=== PATIENT | female | born 1990 | race Caucasian/White ===

== ENCOUNTER 2023-03-23 19:24 | Emergency (ER) | payer OTHER, SELFPAY ==
[2023-03-23 19:28] VITALS: BP 132/99; PULSE 100; RESP 16; TEMP 36.6; O2SAT 97; BMI 33.1
--- NOTE | 2023-03-23 20:03 | ED.NAVMDI1 ---
HPI - Nausea/Vomiting/Diarrhea General Chief complaint: Nausea/Vomiting/Diarrhea Stated complaint: NAUSEA AND VOMITING Time Seen by Provider: 03/23/23 19:36 Source: patient Mode of arrival: walk-in Limitations: no limitations History of Present Illness HPI Narrative: cc - vomiting Patient said that 2 weeks ago she became nauseous and started vomiting. Has not stopped. Unable to keep any solid or semi-solid foods down. Some liquids stay down, others don't - inconsistent she told me. She has some epigastric abdominal pain. Has never had anything like this before. Has not sought any care for this with her PCP or elsewhere. PMHx includes med for bipolar disorder and med for fequent kidney stones - does not know name. PSHx included cholecystectomy and stents for kidney stones. No fever or chills. NO diarrhea. Related Data Home Medications Medication Instructions Recorded Confirmed Esidrix 5 mg PO DAILY 03/23/23 03/23/23 olanzapine 10 mg-samidorphan 10 mg 1 tab PO DAILY 03/23/23 03/23/23 tablet (Lybalvi) Allergies Allergy/AdvReac Type Severity Reaction Status Date / Time No Known Drug Allergies Allergy Verified 03/23/23 19:35 PFSH PFSH Social History Smoking status: Never smoker Exam Narrative Exam Narrative: Nurses notes and vital signs reviewed and patient is not hypoxic. afebrile General: Well-appearing and in no apparent distress. Skin: Warm, dry, no pallor noted. No rash. Head: Normocephalic, atraumatic. Eye: Pupils are equal, round and EOMI. No scleral icterus. Ears, Nose, Mouth, and Throat: Oral mucosa is dry Cardiovascular: Regular Rate and Rhythm without murmur, gallop or rub. Respiratory: No accessory muscle use or respiratory distress. Lungs are clear to auscultation, no wheezing, rales or rhonchi Back: No CVA tenderness Musculoskeletal: normal ROM, no calf or popliteal tenderness, no lower extremity edema/swelling GI: Abdomen is soft, non-distended. Normal bowel sounds. No masses appreciated. Epigastric tenderness to palpation. No rebound, guarding, or rigidity noted. Neurological: A&O x4. No cranial nerve dysfunction observed. No truncal ataxia. Moves all extremities. Sensation intact. Psychiatric: Cooperative and interactive. Normal mood and affect. Constitutional Vital Signs - 24 hr 03/23/23 19:28 03/23/23 20:58 03/23/23 21:59 Temperature 97.8 F Pulse Rate [Monitor] 100 H 87 102 H Respiratory Rate 16 16 16 Blood Pressure [Left Arm] 121/92 H Blood Pressure [Right Arm] 132/99 H 112/88 H Pulse Oximetry 97 98 99 Oxygen Delivery Method Room Air Room Air Room Air Course Vital Signs Vital signs: Vital Signs Temperature 97.8 F 03/23/23 19:28 Pulse Rate 100 H 03/23/23 19:28 Respiratory Rate 16 03/23/23 19:28 Blood Pressure 132/99 H 03/23/23 19:28 Pulse Oximetry 97 03/23/23 19:28 Oxygen Delivery Method Room Air 03/23/23 19:28 Temperature 97.8 F 03/23/23 19:28 Pulse Rate 102 H 03/23/23 21:59 Respiratory Rate 16 03/23/23 21:59 Blood Pressure 121/92 H 03/23/23 21:59 Pulse Oximetry 99 03/23/23 21:59 Oxygen Delivery Method Room Air 03/23/23 21:59 MDM - Nausea/Vomiting/Diarrhea MDM Narrative Medical decision making narrative: peripheral IV established and blood drawn and sent for testing. The patient also had urine sent for testing. She was sent for CT scanning of the abdomen pelvis with IV contrast. Lab testing revealed the patient had an acute urinary tract infection. Urine culture was ordered and is pending. Additionally she is found to have slightly decreased potassium at 2.8. She was given oral potassium tablets. She said that she threw them up but all that was found was water and no pill fragments. CT was unremarkable. She was ordered to receive IV Cipro for her urinary tract infection and discharged home with prescriptions for Zofran and Cipro. I recommended that she maintain a clear liquid diet only for the next forty-eight hours. She can see her primary care physician for follow-up. Lab Data Labs: Lab Results 03/23/23 03/23/23 Range/Units 19:50 20:19 WBC 7.6 (4.0-11.0) 10^3/uL RBC 5.43 H (4.20-5.40) 10^6/uL Hgb 14.4 (12.0-16.0) g/dL Hct 42.6 (36.0-48.0) % MCV 78.5 L (81.0-99.0) fL MCH 26.5 L (26.7-34.0) pg MCHC 33.8 (29.9-35.2) g/dL RDW 14.4 (11.0-15.0) % Plt Count 333 (150-450) 10^3/uL MPV 11.0 (9.5-13.5) fL Neut % (Auto) 53.4 (43.0-75.0) % Lymph % (Auto) 34.3 (20.5-60.0) % [place] % (Auto) 10.3 (1.7-12.0) % Eos % (Auto) 1.1 (0.9-7.0) % Baso % (Auto) 0.8 (0.2-2.0) % Neut # (Auto) 4.0 (1.4-6.5) 10^3/uL Lymph # (Auto) 2.6 (1.2-3.8) 10^3/uL [place] # (Auto) 0.8 (0.3-0.8) 10^3/uL Eos # (Auto) 0.1 (0.0-0.7) 10^3/uL Baso # (Auto) 0.1 (0.0-0.1) 10^3/uL Abs Immat Gran (auto) 0.01 (0.00-0.03) 10^3/uL Imm/Tot Granulo (auto) 0.1 (0.0-0.5) % Sodium 137 (136-145) mmol/L Potassium 2.8 L* (3.5-5.1) mmol/L Chloride 97 L (98-107) mmol/L Carbon Dioxide 25.7 (21.0-32.0) mmol/L Anion Gap 17.1 BUN 9.0 (7.0-18.0) mg/dL Creatinine 0.73 (0.55-1.02) mg/dL Est GFR ( Amer) >60 (>=60) Est GFR (Non-Af Amer) >60 (>=60) BUN/Creatinine Ratio 12.3 Glucose 89 (74-106) mg/dL Lactate 1.1 (0.4-2.0) mmol/L Calcium 9.4 (8.5-10.1) mg/dL Total Bilirubin 0.5 (0.2-1.0) mg/dL AST 37 (15-37) U/L ALT 62 H (14-59) U/L Alkaline Phosphatase 73 (46-116) U/L Total Protein 8.2 (6.4-8.2) g/dL Albumin 4.2 (3.4-5.0) g/dL Globulin 4.0 g/dL Albumin/Globulin Ratio 1.0 Lipase 65.0 L (73.0-393.0) U/L Urine Color Yellow (YELLOW) Urine Clarity Clear (CLEAR) Urine pH 6.5 (5.0-9.0) Ur Specific [place] 1.020 (1.005-1.025) Urine Protein 30 A (NEG/TRACE) mg/dL Urine Glucose (UA) Negative (NEGATIVE) mg/dL Urine Ketones >=80 A (NEGATIVE) mg/dL Urine Occult Blood Negative (NEGATIVE) Urine Nitrite Positive A (NEGATIVE) Urine Bilirubin Moderate A (NEGATIVE) Urine Urobilinogen 1.0 (0.2-1.0) EU/dL Ur Leukocyte Esterase Trace A (NEGATIVE) Urine RBC 0-2 (0-2) #/HPF Urine WBC 2-5 A (NONE SEEN) #/HPF Ur Squamous Epith Cells Moderate A (NONE/RARE) #/LPF Urine Crystals Seen A (None Seen) #/HPF Calcium Oxalate Crystal Few Urine Bacteria Trace A (NONE SEEN) #/HPF Urine Casts Seen A (NONE SEEN) #/LPF Hyaline Casts Rare Urine Mucus Moderate A (NONE SEEN) Ur Culture Indicated? No Imaging Data ct abd/pelvis: Radiologist's impression: Patient Name: CORI BARRIGA MRN: [id number] date: 1990 Sex: F Assigned Patient Location: ER Current Patient Location: ER Accession/Order Number: [id number] Exam Date: 03/23/2023 21:00 Report Date: 03/23/2023 22:09 At the request of: HERMAN HAY Procedure: CT abdomen pelvis w con EXAM: CT abdomen pelvis w con HISTORY: nausea and vomiting COMPARISON: 03/05/2023, 02/16/2023. TECHNIQUE: Axial CT imaging was performed through the abdomen and pelvis with intravenous contrast. Multiplanar reformats were performed. Dose reduction techniques were achieved by using automated exposure control and/or adjustment of mA and/or kV according to patient size and/or use of iterative reconstruction technique. FINDINGS: Lung bases: Lung bases are clear. No pleural effusion. GI upper: Unremarkable. Liver: The liver is diffusely less dense than the spleen. However, this cannot be quantitated on a contrast study. Gallbladder: Prior cholecystectomy Biliary system: No intra or extrahepatic biliary ductal dilatation. Pancreas: Unremarkable. Spleen: Normal size. Adrenal glands: Normal adrenal glands. Kidneys/ureters: Again, there is chronic scarring of the left kidney. The right kidney is normal in contour. A 5 mm cortical calcification is again seen in the right kidney inferiorly. A 3 mm nonobstructing calculus is seen in the left kidney medially. Other smaller calculi are seen previously are obscured by the administered intravenous contrast. Both ureters are normal in caliber and course to the bladder. Vessels: No aneurysm. Lymph Nodes: No lymphadenopathy. Small bowel: No wall thickening or dilatation. Colon: No wall thickening or dilatation. Appendix: Appendix is identified with normal appearance. Peritoneal cavity: No free fluid or pneumoperitoneum. Lower : Unremarkable. Bones: No acute bony abnormality. Soft tissues: Small fat-containing paraumbilical hernia. Additional findings: None. IMPRESSION: Stable bilateral intrarenal calcifications. No acute intra-abdominal or pelvic process is otherwise identified. Electronically authenticated by: Lloyd HWANG Date: 03/23/2023 22:09 Discharge Plan Discharge Chief Complaint: Nausea/Vomiting/Diarrhea Clinical Impression: UTI (urinary tract infection), Vomiting, Acute hypokalemia Patient Disposition: Home, Self-Care Time of Disposition Decision: 22:19 Condition: Good Prescriptions / Home Meds: No Action Lybalvi 10-10 mg tablet 1 tab PO DAILY Esidrix 5 mg PO DAILY Instructions: Urinary Tract Infection in Women (ED), Hypokalemia (ED), Acute Nausea and Vomiting (ED) Stand Alone Forms: Portal Instructions Referrals: Ignacio Das MD [Primary Care Provider] - As soon as possible
[2023-03-23 20:18] LABS: Basophils Absolute Auto 0.1 10^3/uL (0.0-0.1); Basophils Percent Auto 0.8 % (0.2-2.0); Eosinophils Absolute Auto 0.1 10^3/uL (0.0-0.7); Eosinophils Percent Auto 1.1 % (0.9-7.0); Hematocrit 42.6 % (36.0-48.0); Hemoglobin 14.4 g/dL (12.0-16.0); Immature Granulocytes Abs Auto 0.01 10^3/uL (0.00-0.03); Immature Granulocytes Pct Auto 0.1 % (0.0-0.5); Lymphocytes Absolute Auto 2.6 10^3/uL (1.2-3.8); Lymphocytes Percent Auto 34.3 % (20.5-60.0); Mean Corpuscular HGB Conc 33.8 g/dL (29.9-35.2); Mean Corpuscular Hemoglobin 26.5 pg (26.7-34.0); Mean Corpuscular Volume 78.5 fL (81.0-99.0); Monocytes Absolute Auto 0.8 10^3/uL (0.3-0.8); Monocytes Percent Auto 10.3 % (1.7-12.0); Neutrophils Percent Auto 53.4 % (43.0-75.0); Platelet Count 333 10^3/uL (150-450); Red Blood Count 5.43 10^6/uL (4.20-5.40); Red Cell Distribution Width 14.4 % (11.0-15.0); White Blood Count 7.6 10^3/uL (4.0-11.0)
[2023-03-23 20:19] LABS: Bilirubin Urine MODERATE (NEGATIVE); Blood Urine NEGATIVE (NEGATIVE); Clarity Urine CLEAR (CLEAR); Color Urine YELLOW (YELLOW); Glucose Urine UA NEGATIVE (NEGATIVE); Ketones Urine >=80 mg/dL (NEGATIVE); Leukocyte Esterase Urine TRACE (NEGATIVE); Nitrite Urine POSITIVE (NEGATIVE); Protein Urine 30 mg/dL (NEG/TRACE); Urine Microscopic Indicated YES; pH Urine 6.5 (5.0-9.0)
[2023-03-23] MEDS: 0.9 % SODIUM CHLORIDE 1,000 ML 999 ML IV (20:20)
[2023-03-23] MEDS: ONDANSETRON PF 4 MG/2 ML VIAL IV (20:24)
[2023-03-23 20:28] LABS: RBC Urine 0-2 #/HPF (0-2)
[2023-03-23 20:29] LABS: Bacteria Urine TRACE #/HPF (NONE SEEN); Calcium Oxalate Crystals Urine FEW; Cast Seen? SEEN #/LPF (NONE SEEN); Crystals Seen? Seen #/HPF (None Seen); Hyaline Casts Urine RARE; Mucus Urine MODERATE (NONE SEEN); Squamous Epithelial Cell Urine MODERATE #/LPF (NONE/RARE); Urine Culture Indicated NO
[2023-03-23 20:35] LABS: Alanine Aminotransferase 62 U/L (14-59); Albumin Level 4.2 g/dL (3.4-5.0); Alkaline Phosphatase 73 U/L (46-116); Anion Gap 17.1; Aspartate Amino Transferase 37 U/L (15-37); BUN Creatinine Ratio 12.3; Bilirubin Total 0.5 mg/dL (0.2-1.0); Calcium 9.4 mg/dL (8.5-10.1); Carbon Dioxide 25.7 mmol/L (21.0-32.0); Chloride 97 mmol/L (98-107); Estimated GFR (African America >60 (>=60); Estimated GFR (Non-African Ame >60 (>=60); Glucose 89 mg/dL (74-106); Sodium 137 mmol/L (136-145); Total Protein 8.2 g/dL (6.4-8.2)
[2023-03-23 20:36] LABS: Lactate/Lactic Acid 1.1 mmol/L (0.4-2.0)
[2023-03-23 20:41] LABS: Potassium 2.8 mmol/L (3.5-5.1)
--- NOTE | 2023-03-23 20:47 | PC.NURSE ---
Dr aware of Potassium of 2.8
[2023-03-23 20:58] VITALS: BP 112/88; PULSE 87; RESP 16; O2SAT 98
--- NOTE | 2023-03-23 21:00 | CT_ITS ---
[address] [address] Patient Name: CORI BARRIGA MRN: [id number] date: 1990 Sex: F Assigned Patient Location: ER Current Patient Location: ER Accession/Order Number: [id number] Exam Date: 03/23/2023 21:00 Report Date: 03/23/2023 22:09 At the request of: HERMAN HAY Procedure: CT abdomen pelvis w con EXAM: CT abdomen pelvis w con HISTORY: nausea and vomiting COMPARISON: 03/05/2023, 02/16/2023. TECHNIQUE: Axial CT imaging was performed through the abdomen and pelvis with intravenous contrast. Multiplanar reformats were performed. Dose reduction techniques were achieved by using automated exposure control and/or adjustment of mA and/or kV according to patient size and/or use of iterative reconstruction technique. FINDINGS: Lung bases: Lung bases are clear. No pleural effusion. GI upper: Unremarkable. Liver: The liver is diffusely less dense than the spleen. However, this cannot be quantitated on a contrast study. Gallbladder: Prior cholecystectomy Biliary system: No intra or extrahepatic biliary ductal dilatation. Pancreas: Unremarkable. Spleen: Normal size. Adrenal glands: Normal adrenal glands. Kidneys/ureters: Again, there is chronic scarring of the left kidney. The right kidney is normal in contour. A 5 mm cortical calcification is again seen in the right kidney inferiorly. A 3 mm nonobstructing calculus is seen in the left kidney medially. Other smaller calculi are seen previously are obscured by the administered intravenous contrast. Both ureters are normal in caliber and course to the bladder. Vessels: No aneurysm. Lymph Nodes: No lymphadenopathy. Small bowel: No wall thickening or dilatation. Colon: No wall thickening or dilatation. Appendix: Appendix is identified with normal appearance. Peritoneal cavity: No free fluid or pneumoperitoneum. Lower : Unremarkable. Bones: No acute bony abnormality. Soft tissues: Small fat-containing paraumbilical hernia. Additional findings: None. IMPRESSION: Stable bilateral intrarenal calcifications. No acute intra-abdominal or pelvic process is otherwise identified. Electronically authenticated by: Lloyd HWANG Date: 03/23/2023 22:09
--- NOTE | 2023-03-23 21:03 | PC.NURSE ---
States vomited x5 today with no diarrhea stools.
[2023-03-23] MEDS: POTASSIUM CHLORIDE 10 MEQ ER TABLET 40 MEQ PO (21:55)
[2023-03-23 21:59] VITALS: BP 121/92; PULSE 102; RESP 16; O2SAT 99
[2023-03-23] MEDS: CIPROFLOXACIN IN 5 % DEXTROSE 400 MG/200 ML PIGGYBACK 200 MG IV (22:43)
[2023-03-23 23:54] VITALS: BP 121/77; PULSE 90; RESP 18; TEMP 36.6; O2SAT 98
== END 2023-03-23 23:57 | disposition home or self-care (01) ==
PROVIDERS: Emergency Provider Emergency Medicine; PCP Family Medicine
DX: N39.0 Urinary tract infection, site not specified (principal); E87.6 Hypokalemia; R11.0 Nausea; F31.9 Bipolar disorder, unspecified; Z79.899 Other long term (current) drug therapy; Z87.442 Personal history of urinary calculi; Z90.49 Acquired absence of other specified parts of digestive tract
CPT/HCPCS: 36415; 74177; 80053; 81003; 81015; 83605; 83690; 85025; 87086; 96361; 96365; 96375; 99284; Q9967

== ENCOUNTER 2023-03-30 10:19 | Outpatient (OUT) | payer OTHER, SELFPAY ==
[2023-03-30 11:41] LABS: Basophils Absolute Auto 0.1 10^3/uL (0.0-0.1); Eosinophils Absolute Auto 0.1 10^3/uL (0.0-0.7); Eosinophils Percent Auto 1.4 % (0.9-7.0); Hematocrit 40.9 % (36.0-48.0); Hemoglobin 13.3 g/dL (12.0-16.0); Lymphocytes Percent Auto 40.2 % (20.5-60.0); Mean Corpuscular HGB Conc 32.5 g/dL (29.9-35.2); Mean Corpuscular Hemoglobin 26.4 pg (26.7-34.0); Mean Corpuscular Volume 81.2 fL (81.0-99.0); Mean Platelet Volume 10.4 fL (9.5-13.5); Monocytes Absolute Auto 0.5 10^3/uL (0.3-0.8); Monocytes Percent Auto 10.4 % (1.7-12.0); Neutrophils Absolute Auto 2.3 10^3/uL (1.4-6.5); Platelet Count 267 10^3/uL (150-450); Red Blood Count 5.04 10^6/uL (4.20-5.40); Red Cell Distribution Width 14.9 % (11.0-15.0)
[2023-03-30 11:56] LABS: INR 0.98; Partial Thromboplastin Time 25.8 sec (22.3-36.2); Prothrombin Time 10.4 sec (9.0-11.6)
[2023-03-30 12:05] LABS: Anion Gap 11.1; BUN Creatinine Ratio 11.3; Calcium 9.2 mg/dL (8.5-10.1); Carbon Dioxide 28.6 mmol/L (21.0-32.0); Chloride 104 mmol/L (98-107); Estimated GFR (African America >60 (>=60); Estimated GFR (Non-African Ame >60 (>=60); Glucose 106 mg/dL (74-106); Potassium 3.7 mmol/L (3.5-5.1); Sodium 140 mmol/L (136-145)
== END 2023-03-30 10:20 ==
PROVIDERS: Urology; PCP Family Medicine
DX: Z01.812 Encounter for preprocedural laboratory examination (principal); N20.0 Calculus of kidney; R31.9 Hematuria, unspecified; F31.9 Bipolar disorder, unspecified
CPT/HCPCS: 36415; 80048; 85025; 85610; 85730

== ENCOUNTER 2023-04-09 06:44 | Day surgery (SDC) | payer OTHER, SELFPAY ==
[2023-03-30 10:53] VITALS: BP 118/84; PULSE 88; RESP 16; TEMP 36.6; O2SAT 96; BMI 35.0
[2023-04-09] VITALS (16 sets, daily range): BP systolic 107–130; BP diastolic 72–97; PULSE 75–102; RESP 15–25; TEMP 36.2–36.4; O2SAT 95–98
--- NOTE | 2023-04-09 07:00 | XR_ITS ---
The [address] [address] Patient Name: CORI BARRIGA MRN: [id number] date: 1990 Sex: F Assigned Patient Location: [facility] Current Patient Location: [facility] Accession/Order Number: [id number] Exam Date: 04/09/2023 07:10 Report Date: 04/09/2023 08:26 At the request of: NONA RAYGOZA Procedure: XR abdomen 1V EXAMINATION: XR abdomen 1V HISTORY: kidney stones COMPARISON: CT abdomen pelvis 03/23/2023 FINDINGS: KIDNEY/URETER - RIGHT: No visible renal or ureteral calcifications. KIDNEY/URETER - LEFT: No visible renal or ureteral calcifications. PELVIS: No visible ureteral stones. BOWEL: No abnormal dilation or deviation. BONES: No acute abnormality. OTHER: Negative. No abnormal gaseous collections. IMPRESSION: 1. No visible urinary tract calculi. Calcifications seen within the kidneys on prior CT study are not visible on today's study. Electronically authenticated by: JENNIFER GATES Date: 04/09/2023 08:26
[2023-04-09 07:13] LABS: HCG Qualitative NEGATIVE (NEGATIVE)
[2023-04-09] MEDS: LACTATED RINGER'S SOLUTION 1,000 ML 50 ML IV (07:37)
[2023-04-09] MEDS: CEFAZOLIN SODIUM/DEXTROSE,ISO 1 GM/50 ML IV.SOLN IV (08:18)
--- NOTE | 2023-04-09 09:08 | PM.URSON ---
Urology Surgery Operative Note Operative Note Procedure Date: 04/09/23 Time Out Performed: yes Pre-op Diagnosis: right renal calculus Post-op Diagnosis: same Procedures performed: #1. Right ESWL. Anesthesia: other (Gen. by LMA) Primary Surgeon: Caesar Villa Complications: none Estimated blood loss (mL): 0 Findings: lower pole right renal calculus 5-6 mm Specimens: none Drains: none Indications for Procedures: splayed he has a nonobstructing right lower pole 5 mm calculus. She now presents for right ESWL. She has signed an informed consent for this procedure after all the risks were explained. Some of these risks include bleeding, perinephric hematoma, infection and anesthesia to name a few. Detailed description of Procedure: The patient was brought to the Operating Room and placed on Siemens electromagnetic lithotripsy treatment table in the supine position. SCDs were placed on their lower extremities and turned on and functioning during the entire case. Timeout was done by all parties in the room. We all agreed upon the patient's identification and the planned procedures for this patient. General Anesthesia was then administered via LMA. Treatment head was then brought to the patient's correct side. While using flourscopy the stone was identified and lined up into the crosshairs. We then began applying shocks at power level II.0 and then increased to a maximum power level of 3.5. Intermittent fluoroscopy showed that the stone was fairly slow to fragment. We applied a total of 3000 shocks. We saw definite fragmentation. The last fluoroscopic view showed irregular small pieces in the lower pole. The procedure was then terminated. She was then transferred to a rnew brighton bed and wheeled to PACU in stable condition. Other Provider present: No
[2023-04-09] MEDS: KETOROLAC TROMETHAMINE 30 MG/ML VIAL 15 MG IVP (09:18)
[2023-04-09] MEDS: HYDROMORPHONE HCL 0.5 MG/0.5 ML SYRINGE IV ×2 (09:30→10:39)
--- NOTE | 2023-04-09 10:35 | PC.NURSE ---
patient cryng tht flank pain is an 8. heat applied but patient continues to cry.
--- NOTE | 2023-04-09 11:06 | PC.NURSE ---
Patient urinated blood tinged urine. 125 ml strained urine no stones present. Patient's pain is tolerable.
== END 2023-04-09 11:40 | disposition home or self-care (01) ==
PROVIDERS: PCP Family Medicine; Visit Provider Urology
PROC: (CPT 873; principal; 2023-04-09 08:20)
DX: N20.0 Calculus of kidney (principal); Z87.440 Personal history of urinary (tract) infections; R10.9 Unspecified abdominal pain; Z87.442 Personal history of urinary calculi; Z90.49 Acquired absence of other specified parts of digestive tract; R82.994 Hypercalciuria; R82.992 Hyperoxaluria; R31.29 Other microscopic hematuria; F31.9 Bipolar disorder, unspecified
CPT/HCPCS: 50590; 36415; 74018; 84703; 85025; J1170; J2704

== ENCOUNTER 2023-04-24 09:51 | Outpatient (OUT) | payer OTHER, SELFPAY ==
[2023-04-24 11:44] LABS: Basophils Percent Auto 0.5 % (0.2-2.0); Eosinophils Absolute Auto 0.1 10^3/uL (0.0-0.7); Hematocrit 39.7 % (36.0-48.0); Hemoglobin 12.9 g/dL (12.0-16.0); Immature Granulocytes Abs Auto 0.01 10^3/uL (0.00-0.03); Immature Granulocytes Pct Auto 0.1 % (0.0-0.5); Lymphocytes Percent Auto 25.8 % (20.5-60.0); Mean Corpuscular HGB Conc 32.5 g/dL (29.9-35.2); Mean Corpuscular Hemoglobin 26.4 pg (26.7-34.0); Mean Corpuscular Volume 81.4 fL (81.0-99.0); Mean Platelet Volume 9.7 fL (9.5-13.5); Monocytes Absolute Auto 0.7 10^3/uL (0.3-0.8); Monocytes Percent Auto 8.5 % (1.7-12.0); Neutrophils Absolute Auto 4.9 10^3/uL (1.4-6.5); Neutrophils Percent Auto 64.1 % (43.0-75.0); Platelet Count 360 10^3/uL (150-450); Red Blood Count 4.88 10^6/uL (4.20-5.40); White Blood Count 7.7 10^3/uL (4.0-11.0)
[2023-04-24 12:05] LABS: Alanine Aminotransferase 79 U/L (14-59); Albumin Globulin Ratio 0.9; Albumin Level 3.6 g/dL (3.4-5.0); Alkaline Phosphatase 101 U/L (46-116); Anion Gap 12.8; Aspartate Amino Transferase 47 U/L (15-37); BUN Creatinine Ratio 7.6; Bilirubin Direct 0.1 mg/dL (0.0-0.2); Bilirubin Total 0.4 mg/dL (0.2-1.0); Calcium 8.9 mg/dL (8.5-10.1); Carbon Dioxide 24.9 mmol/L (21.0-32.0); Chloride 105 mmol/L (98-107); Estimated GFR (African America >60 (>=60); Estimated GFR (Non-African Ame >60 (>=60); Globulin 3.8 g/dL; Glucose 101 mg/dL (74-106); Potassium 3.7 mmol/L (3.5-5.1); Prothrombin Time 9.7 sec (9.0-11.6); Sodium 139 mmol/L (136-145); Total Protein 7.4 g/dL (6.4-8.2)
[2023-04-24 12:06] LABS: INR <0.93
== END 2023-04-24 09:52 | disposition home or self-care (01) ==
LOC: PST 09:51
PROVIDERS: PCP Family Medicine; Visit Provider Obstetrics & Gynecology
DX: Z01.812 Encounter for preprocedural laboratory examination (principal); N92.1 Excessive and frequent menstruation with irregular cycle; R10.2 Pelvic and perineal pain; N94.6 Dysmenorrhea, unspecified; N94.10 Unspecified dyspareunia
CPT/HCPCS: 36415; 80048; 80076; 85025; 85610; 85730; 86850; 86900; 86901

== ENCOUNTER 2023-05-06 06:05 | Day surgery (SDC) | payer OTHER, SELFPAY ==
[2023-04-24 10:12] VITALS: BP 128/90; PULSE 92; RESP 18; TEMP 36.5; O2SAT 96; BMI 34.9
[2023-05-06] VITALS (20 sets, daily range): BP systolic 116–141; BP diastolic 70–96; PULSE 79–115; RESP 0–27; TEMP 36.4–37.1; O2SAT 90–98; BMI 34.9
[2023-05-06 06:17] LABS: Mean Corpuscular Volume 82.1 fL (81.0-99.0); Red Blood Count 4.87 10^6/uL (4.20-5.40); White Blood Count 7.1 10^3/uL (4.0-11.0)
[2023-05-06 06:18] LABS: Basophils Percent Auto 0.6 % (0.2-2.0); Eosinophils Absolute Auto 0.2 10^3/uL (0.0-0.7); Eosinophils Percent Auto 2.5 % (0.9-7.0); Immature Granulocytes Abs Auto 0.01 10^3/uL (0.00-0.03); Immature Granulocytes Pct Auto 0.1 % (0.0-0.5); Lymphocytes Absolute Auto 2.6 10^3/uL (1.2-3.8); Lymphocytes Percent Auto 35.8 % (20.5-60.0); Mean Corpuscular HGB Conc 32.5 g/dL (29.9-35.2); Mean Corpuscular Hemoglobin 26.7 pg (26.7-34.0); Mean Platelet Volume 9.2 fL (9.5-13.5); Monocytes Absolute Auto 0.6 10^3/uL (0.3-0.8); Monocytes Percent Auto 8.8 % (1.7-12.0); Neutrophils Absolute Auto 3.7 10^3/uL (1.4-6.5); Neutrophils Percent Auto 52.2 % (43.0-75.0); Platelet Count 359 10^3/uL (150-450); Red Cell Distribution Width 14.9 % (11.0-15.0)
[2023-05-06 06:35] LABS: HCG Quantitative <1 mIU/mL
[2023-05-06] MEDS: LACTATED RINGER'S SOLUTION 1,000 ML 50 ML IV ×2 (06:56→09:00)
[2023-05-06] MEDS: CEFAZOLIN SODIUM/DEXTROSE,ISO 2 GM/50 ML PIGGYBACK IV ×3 (07:27→21:32)
[2023-05-06] MEDS: LACTATED RINGER'S SOLUTION 1,000 ML 1000 ML IV (09:00)
--- NOTE | 2023-05-06 10:28 | PM.ONB ---
Brief Operative Note Date of procedure: 05/06/23 Pre-op diagnosis: menorrhagia, pelvic pain, dyspareunia,dysmenorrhea Post-op diagnosis: same Procedure: PROCEDURE:? Robotic assisted laparoscopic hysterectomy with cystoscopy, bilateral salpingectomy PREOPERATIVE DIAGNOSIS:? Dysmenorrhea, menorrhagia, pelvis pain, history of endometriosis. POSTOPERATIVE DIAGNOSIS:? Dysmenorrhea, menorrhagia, pelvis pain, history of endometriosis. ANESTHESIA:? General. SURGEON:? Jefferson Gibbs D.O. STRUCTURAL ENGINEERING TECHNICIAN:? LAMINATION MACHINE OPERATOR URINE OUTPUT:? Yellow and clear. BLOOD LOSS:? 100 mL. FINDINGS:? slightly enlarged uterus, normal appearing ovaries and tubes SPECIMEN:? Uterus and cervix, left tube and right tube PROCEDURE:? The patient was taken back to the operating room, where she was prepped and draped in the normal sterile fashion after being placed in the dorsal lithotomy position.? Patient?s anesthesia was found to be adequate.? Surgical timeout was performed using two patient identifiers.? SCDs were on and in place.? Two grams of Ancef were given prior to the surgery.? Sterile Thurston catheter was inserted.? Standard size VCare was secured to the uterine cervix and the surgeon changed gloves.? Attention then was turned to the patient's abdomen, where a supraumbilical incision was then made.? Two S retractors were used to identify the patient?s fascia.? The fascia was then tented up using Hugh clamps and the patient?s fascia was incised sharply.? Patient?s abdomen was identified and entered bluntly.? The patient had the trocar placed and a pneumoperitoneum was obtained.? Approximately 4 liters of CO2 gas was used.? The camera was then placed through the trocar.? At this time, two robot trocars were placed in the patient?s left and right side, two hand widths from the midline, and this was placed under direct visualization.? The patient?s tube on the right side was tented up and the vessel sealer was then used to come across the mesosalpinx, and this was carried down to the uterine ovarian ligament.? The vessel sealer was carried down serially to the broad ligament, to the area of the bladder flap, which was then created anteriorly, and the uterine arteries were skeletonized and sealed using the vessel sealer.? The colpotomy was made using the monopolar cautery on cut, and this was carried circumferentially, posteriorly to anteriorly, until the uterus was amputated.? The specimen was then removed intact through the vagina, without difficulty.? The vagina was then closed using two running V-Loc in a non-lock fashion.? The robot was undocked.? The abdomen was desufflated.? The skin defects were closed using 4-0 Vicryl.? Please note, the fascia was closed using 0 Vicryl.? Sponge, lap and needle counts were correct x2.? Patient was taken to recovery room in stable condition.? The patient was awakened by Anesthesia first.? Patient tolerated procedure well.??Please note left ovarian cystectomy was performed using the vessel sealer Anesthesia: TALON Research Associate Policy: Doreen Martin Estimated blood loss (mL): 50 Pathology: other (uterus,cervix, tube) Condition: stable Disposition: PACU
--- NOTE | 2023-05-06 10:42 | PC.NURSE ---
Patient had a 16 palestinian catheter placed upon arrival to OR. Patient had 300 ml of dark yellow urine output during case. Catheter was removed upon end of case per surgeon's orders.
[2023-05-06] MEDS: MEPERIDINE HCL/PF 25 MG/ML VIAL IVP (11:10)
--- NOTE | 2023-05-06 11:17 | PC.NURSE ---
Patient came out with 4 abdominal incision with sri strip matisol, telfa and tegaderm that are all dry and intact.
--- NOTE | 2023-05-06 11:24 | PC.NURSE ---
Patient is resting snoring and relaxed at this time after pain meds given
[2023-05-06] MEDS: LACTATED RINGER'S SOLUTION 1,000 ML 125 ML IV ×2 (11:39→21:36)
--- NOTE | 2023-05-06 11:57 | PC.NURSE ---
Patient transferred to same day surgery center. 4 dressing remain clean dry and intact on abdomen Shruthi pad remans with scant amount of bloody drainage. Oral pain meds give prior to transport for a 5 out of 10 pain pain rating.
[2023-05-06 16:29] LABS: Basophils Percent Auto 0.1 % (0.2-2.0); Hematocrit 37.6 % (36.0-48.0); Hemoglobin 12.4 g/dL (12.0-16.0); Immature Granulocytes Abs Auto 0.06 10^3/uL (0.00-0.03); Immature Granulocytes Pct Auto 0.5 % (0.0-0.5); Lymphocytes Absolute Auto 0.4 10^3/uL (1.2-3.8); Lymphocytes Percent Auto 3.2 % (20.5-60.0); Mean Corpuscular Volume 81.7 fL (81.0-99.0); Mean Platelet Volume 9.1 fL (9.5-13.5); Monocytes Absolute Auto 0.3 10^3/uL (0.3-0.8); Monocytes Percent Auto 2.5 % (1.7-12.0); Neutrophils Absolute Auto 12.4 10^3/uL (1.4-6.5); Neutrophils Percent Auto 93.7 % (43.0-75.0); Platelet Count 351 10^3/uL (150-450); White Blood Count 13.3 10^3/uL (4.0-11.0)
[2023-05-06] MEDS: PROMETHAZINE HCL 25 MG/ML VIAL 12.5 MG IV (17:53)
[2023-05-06] MEDS: KETOROLAC TROMETHAMINE 30 MG/ML VIAL IVP (17:54)
--- NOTE | 2023-05-06 21:24 | PC.NURSE ---
Bandages for Lap Hyst clean and dry, very small amuont showing on center left bandage. Pt states she is in pain and stays still to help wiht not agrevating sites
[2023-05-07] MEDS: IBUPROFEN 600 MG TABLET 800 MG PO (01:48)
--- NOTE | 2023-05-07 04:23 | PC.NURSE ---
pt used call light for pain med request, she has already had her alotment of pain meds and cannot have anymore until @0600. Give pt an ice pack to set over surgical site at this time
--- NOTE | 2023-05-07 04:47 | PC.NURSE ---
give pt K-pad to help with muscle cramp type pain in lower abdomen
[2023-05-07 05:00] VITALS: O2SAT 93
[2023-05-07 05:36] VITALS: BP 102/66; PULSE 92; RESP 18; TEMP 36.6; O2SAT 93
[2023-05-07 07:27] VITALS: RESP 16
== END 2023-05-07 07:42 | disposition home or self-care (01) ==
LOC: SURGOUT 11:25 → MS 11:45
PROVIDERS: PCP Family Medicine; Visit Provider Obstetrics & Gynecology
PROC: (CPT 840; principal; 2023-05-06 07:30)
DX: N94.6 Dysmenorrhea, unspecified (principal); R10.2 Pelvic and perineal pain; N94.10 Unspecified dyspareunia; N92.1 Excessive and frequent menstruation with irregular cycle; N83.8 Other noninflammatory disorders of ovary, fallopian tube and broad ligament; R87.613 High grade squamous intraepithelial lesion on cytologic smear of cervix (HGSIL); N80.03 Adenomyosis of the uterus; Z87.442 Personal history of urinary calculi; F41.9 Anxiety disorder, unspecified; F31.9 Bipolar disorder, unspecified; Z90.49 Acquired absence of other specified parts of digestive tract; Q79.4 Prune belly syndrome
CPT/HCPCS: 58571; 58662; 36415; 84702; 85025; 86850; 86870; 86880; 86900; 86901; 86920; 86922; 88307; 88341; 88342; 94667; 94668; 94761; 96365; J1170; J2704

== ENCOUNTER 2023-05-12 14:29 | Emergency (ER) | payer OTHER, SELFPAY ==
[2023-05-12 14:37] VITALS: BP 128/88; PULSE 102; RESP 16; TEMP 36.7; O2SAT 96; BMI 33.9
[2023-05-12 14:46] VITALS: PULSE 102
--- NOTE | 2023-05-12 14:56 | US_ITS ---
The [address] [address] Patient Name: CORI BARRIGA MRN: [id number] date: 1990 Sex: F Assigned Patient Location: ER Current Patient Location: ER Accession/Order Number: [id number] Exam Date: 05/12/2023 15:36 Report Date: 05/12/2023 16:42 At the request of: NINOSKA JENNINGS Procedure: US venous doppler LE RT EXAM: US venous doppler LE RT HISTORY: right leg pain the past day. The patient had surgery 1 week ago. COMPARISON: None. TECHNIQUE: Multiple sonographic images of the deep veins of the right lower extremity were obtained, supplemented with Doppler. FINDINGS: The deep veins of the right lower extremity were well visualized from the groin to the mid calf. No filling defect is identified to indicate a thrombus. There is normal compression augmentation to flow throughout. US/US venous doppler LE RT IMPRESSION: There is no direct or indirect evidence of deep vein thrombosis in the right lower extremity at this time. Electronically authenticated by: DIMPLE KUMAR Date: 05/12/2023 16:42
--- NOTE | 2023-05-12 14:58 | ED.GENADUL1 ---
HPI - General Adult General Chief complaint: Extremity Problem, Nontraumatic Stated complaint: PAIN IN RIGHT LEG Time Seen by Provider: 05/12/23 14:56 Source: patient Mode of arrival: walk-in Limitations: no limitations History of Present Illness HPI narrative: Patient is a 32-year-old female who is presenting with right knee and right lateral calf pain. Patient had a hysterectomy last Thursday. at bedside states patient also had approximately 30 minute episode of a cold sensation to the right leg compared to left, but there is no skin changes, no cyanosis, no color changes just a cold sensation to the right leg compared to the left. Patient had a hysterectomy on Thursday, vaginal hysterectomy. No complications the patient is aware of. Patient has some pressure to the suprapubic area, otherwise incisions have been intact, patient has had no bleeding, no bruising to her abdomen, back, or perineal area. No fever or chills. No chest pain or shortness of breath, no headache. . All systems are negative except as noted/marked. All systems reviewed and otherwise negative. . Nurses note and vital signs reviewed and patient is not hypoxic. General: The patient appears well and in no apparent distress. Patient is resting comfortably on cart. Patient is not toxic, lethargic, or listless Skin: Warm, dry, no pallor noted. There is no rash noted. No petechiae, purpura. surgical incisions are clean, dry, intact Head: Normocephalic, atraumatic Eye: Normal conjunctiva, no drainage, EOMI. PERRL Ears, Nose, Mouth, and Throat: oral mucosa is moist. Nares patent. Mouth without vesicles. Cardiovascular: Regular Rate and Rhythm, no murmur, gallop, rub Respiratory: Patient is in no distress, no accessory muscle use, lungs are clear to auscultation, no wheezing, rales or rhonchi Back: non-tender, no CVA tenderness bilaterally to percussion. No CT LS midline pain GI: soft, mild suprapubic tenderness to palpation, otherwise no tenderness to palpation, no masses appreciated. No rebound, guarding, or rigidity noted. No flank pain bilateral, No distention Musculoskeletal: Patient has full range of motion of all of the extremities, no motor, sensory, or focal neurological deficits. Patient has no cold sensation to the right leg at this time. Patient has normal right femoral pulse, no pulsatile mass, no signs of pseudoaneurysm or ecchymosis to the suprapubic area, patient denies ecchymosis to the perineal area. Patient has normal reflexes to the right patella and Achilles, normal dorsalis pedis pulse to the right foot. Neurological: A&O x3, normal speech Psychiatric: Cooperative Related Data Home Medications Medication Instructions Recorded Confirmed olanzapine 10 mg-samidorphan 10 mg 1 tab PO DAILY 03/23/23 05/06/23 tablet (Lybalvi) hydrochlorothiazide 25 mg tablet 25 mg PO DAILY 04/24/23 05/06/23 olanzapine 15 mg-samidorphan 10 mg 1 tab PO .QHS 04/24/23 05/06/23 tablet (Lybalvi) Previous Rx's Medication Instructions Recorded ibuprofen 800 mg tablet 800 mg PO Q8H PRN pain 14 days #40 05/06/23 tabs oxycodone-acetaminophen 5 mg-325 1 tab PO Q6H PRN pain 7 days #28 05/06/23 mg tablet (Percocet) tabs metronidazole 500 mg tablet 500 mg PO BID 10 days #20 tabs 05/12/23 Allergies Allergy/AdvReac Type Severity Reaction Status Date / Time No Known Drug Allergies Allergy Verified 05/12/23 14:37 [facility] Medical History (Updated 05/12/23 @ 19:53 by Kyle Leonard MD) (03/2023) Surgical History (Updated 05/06/23 @ 06:42 by Araceli Recinos) Family History (Updated 03/30/23 @ 10:56 by Natalee Jules) Other Family history of hypertension Social History (Updated 04/24/23 @ 10:12 by Valencia Chavez NP) Within the past year, how often did you have a drink containing alcohol: monthly or less Smoking status: Never smoker Non-prescribed substance use: denies use 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 Highest level of school completed/degree received: Master's degree Are you now , , , , never or living with a partner: Gender Identity: female Exam Constitutional Vital Signs, click to edit/add: Last Vital Signs Temp 98.0 F 05/12/23 14:37 Pulse 102 H 05/12/23 14:46 Resp 16 05/12/23 14:37 BP 128/88 H 05/12/23 14:37 Pulse Ox 96 05/12/23 14:37 O2 Del Method Room Air 05/12/23 14:37 Course Vital Signs Vital signs: Vital Signs Temperature 98.0 F 05/12/23 14:37 Pulse Rate 102 H 05/12/23 14:37 Respiratory Rate 16 05/12/23 14:37 Blood Pressure 128/88 H 05/12/23 14:37 Pulse Oximetry 96 05/12/23 14:37 Oxygen Delivery Method Room Air 05/12/23 14:37 Temperature 98.0 F 05/12/23 14:37 Pulse Rate 102 H 05/12/23 14:46 Respiratory Rate 16 05/12/23 14:37 Blood Pressure 128/88 H 05/12/23 14:37 Pulse Oximetry 96 05/12/23 14:37 Oxygen Delivery Method Room Air 05/12/23 14:37 Medical Decision Making MDM Narrative Medical decision making narrative: patient's ultrasound the right leg was negative for deep vein thrombosis. Case was discussed with Dr. Gibbs, who performed hysterectomy last Thursday. Decision was made between Dr. Gibbs myself to perform CT of the pelvis with IV contrast makes is no other acute abnormalities. Patient's exam is normal to the right leg in the Emergency Room. CT of the pelvis was discussed with Dr. Gibbs. Dr. Gibbs explained to me his surgical procedures, and stated this type of finding is typically normal after his procedures. He does not believe this is an abscess, And additional antibiotics will be started if there was an elevated white blood cell count and fever which patient has neither of.. Patient has no white Blood cell count. Patient will be placed on Flagyl 500 mg prophylactically. Twice a day for [address] Gibbs. Patient has an appointment on Thursday with Dr. Gibbs which she stated is still appropriate. No questions andd patient at discharge, patient was educated that this may be abscess but most likely a false reading secondary to Dr. Gibbs surgical procedures. If any other questions patient is to call Dr. Gibbs's office. No acute vascular compromise. No etiology for the coldness to the right leg for half hour, but the symptoms have not presented themselves in the Emergency Room. Patient has been neurovascularly intact, no motor sensory deficits in the right leg today. Lab Data Labs: Lab Results 05/12/23 Range/Units 17:15 WBC 10.8 (4.0-11.0) 10^3/uL RBC 4.76 (4.20-5.40) 10^6/uL Hgb 12.8 (12.0-16.0) g/dL Hct 39.5 (36.0-48.0) % MCV 83.0 (81.0-99.0) fL MCH 26.9 (26.7-34.0) pg MCHC 32.4 (29.9-35.2) g/dL RDW 15.1 H (11.0-15.0) % Plt Count 410 (150-450) 10^3/uL MPV 9.7 (9.5-13.5) fL Neut % (Auto) 72.5 (43.0-75.0) % Lymph % (Auto) 18.6 L (20.5-60.0) % [place] % (Auto) 6.9 (1.7-12.0) % Eos % (Auto) 1.3 (0.9-7.0) % Baso % (Auto) 0.5 (0.2-2.0) % Neut # (Auto) 7.8 H (1.4-6.5) 10^3/uL Lymph # (Auto) 2.0 (1.2-3.8) 10^3/uL [place] # (Auto) 0.7 (0.3-0.8) 10^3/uL Eos # (Auto) 0.1 (0.0-0.7) 10^3/uL Baso # (Auto) 0.1 (0.0-0.1) 10^3/uL Abs Immat Gran (auto) 0.02 (0.00-0.03) 10^3/uL Imm/Tot Granulo (auto) 0.2 (0.0-0.5) % Discharge Plan Discharge Chief Complaint: Extremity Problem, Nontraumatic Clinical Impression: Pain in right leg Patient Disposition: Home, Self-Care Time of Disposition Decision: 19:54 Condition: Good Prescriptions / Home Meds: New metronidazole 500 mg tablet 500 mg PO BID 10 Days Qty: 20 0RF No Action Lybalvi 10-10 mg tablet 1 tab PO DAILY hydrochlorothiazide 25 mg tablet 25 mg PO DAILY Lybalvi 15-10 mg tablet 1 tab PO .QHS Patient Comments: LAST FILLED 01/08/2023 FOR 30 DAYS ibuprofen 800 mg tablet 800 mg PO Q8H PRN (Reason: pain) 14 Days Qty: 40 0RF oxycodone-acetaminophen [Percocet] 5-325 mg tablet 1 tab PO Q6H PRN (Reason: pain) 7 Days Qty: 28 0RF Instructions: Leg Pain (ED) Stand Alone Forms: Portal Instructions Referrals: Jefferson Gibbs DO [Physician] - 1 week Ignacio Das MD [Primary Care Provider] - 1 week
--- NOTE | 2023-05-12 17:08 | CT_ITS ---
The [address] [address] Patient Name: CORI BARRIGA MRN: [id number] date: 1990 Sex: F Assigned Patient Location: ER Current Patient Location: ER Accession/Order Number: [id number] Exam Date: 05/12/2023 17:20 Report Date: 05/12/2023 18:05 At the request of: NINOSKA JENNINGS Procedure: CT pelvis w con Examination:CT pelvis w con INDICATION:right leg temp change COMPARISON:Previous pelvis CT scan dated 03/23/2023. TECHNIQUE:Multiple thin section transaxial slices were acquired through the pelvis with intravenous contrast. Coronal and sagittal reconstructed images were reviewed. FINDINGS:Postsurgical changes are present in the pelvis status post hysterectomy. There is some edema in the pelvis which may be postsurgical in nature. There is a rim-enhancing collection of fluid extending across the midline measuring approximately 6.9 x 5.9 cm. Previously imaging features, postsurgical abscess cannot be excluded. The visualized bowel loops are normal in caliber without obstruction. No inflammation is associated with the bowel loops. The appendix is visualized and is not inflamed. The urinary bladder is unremarkable. There are no subcutaneous soft tissue collections identified. Osseous structures are unremarkable. CT/CT pelvis w con IMPRESSION: Status post hysterectomy. There is a rim-enhancing collection of fluid in the pelvis measuring 6.9 x 5.9 cm within the pelvis concerning for postsurgical abscess. Electronically authenticated by: ALESSANDRA SPAULDING Date: 05/12/2023 18:05
[2023-05-12 19:22] LABS: Basophils Absolute Auto 0.1 10^3/uL (0.0-0.1); Basophils Percent Auto 0.5 % (0.2-2.0); Eosinophils Absolute Auto 0.1 10^3/uL (0.0-0.7); Eosinophils Percent Auto 1.3 % (0.9-7.0); Hematocrit 39.5 % (36.0-48.0); Hemoglobin 12.8 g/dL (12.0-16.0); Immature Granulocytes Abs Auto 0.02 10^3/uL (0.00-0.03); Immature Granulocytes Pct Auto 0.2 % (0.0-0.5); Lymphocytes Percent Auto 18.6 % (20.5-60.0); Mean Corpuscular HGB Conc 32.4 g/dL (29.9-35.2); Mean Corpuscular Hemoglobin 26.9 pg (26.7-34.0); Mean Platelet Volume 9.7 fL (9.5-13.5); Monocytes Absolute Auto 0.7 10^3/uL (0.3-0.8); Monocytes Percent Auto 6.9 % (1.7-12.0); Neutrophils Absolute Auto 7.8 10^3/uL (1.4-6.5); Neutrophils Percent Auto 72.5 % (43.0-75.0); Platelet Count 410 10^3/uL (150-450); Red Blood Count 4.76 10^6/uL (4.20-5.40); Red Cell Distribution Width 15.1 % (11.0-15.0); White Blood Count 10.8 10^3/uL (4.0-11.0)
[2023-05-12 20:00] VITALS: BP 128/72; PULSE 88; RESP 16; TEMP 36.8; O2SAT 99
== END 2023-05-12 20:00 | disposition home or self-care (01) ==
PROVIDERS: Emergency Provider Emergency Medicine; PCP Family Medicine
DX: M79.604 Pain in right leg (principal); Z90.710 Acquired absence of both cervix and uterus; Z79.899 Other long term (current) drug therapy
CPT/HCPCS: 36415; 72193; 85025; 93971; 99285; Q9967

== ENCOUNTER 2023-05-30 16:17 | Emergency (ER) | payer OTHER, SELFPAY ==
[2023-05-30 16:20] VITALS: BP 127/83; PULSE 98; RESP 20; TEMP 36.6; O2SAT 98; BMI 33.9
--- NOTE | 2023-05-30 16:27 | PC.NURSE ---
I&D 2 DAYS AGO PT CONCERNED WITH AMOUNT OF DRAINAGE
--- NOTE | 2023-05-30 16:32 | CT_ITS ---
The [address] [address] Patient Name: CORI BARRIGA MRN: [id number] date: 1990 Sex: F Assigned Patient Location: ER Current Patient Location: ER Accession/Order Number: [id number] Exam Date: 05/30/2023 16:52 Report Date: 05/30/2023 17:21 At the request of: HERMAN HAY Procedure: CT abdomen pelvis w con CT abdomen and pelvis with contrast CLINICAL: post-operative vaginal bleeding , hysterectomy 3-4 weeks ago, heavy bleeding today. COMPARISON: CT pelvis 05/10/2023 TECHNIQUE: Computed tomography of the abdomen and pelvis was performed following the uneventful administration of 100 cc Omnipaque 300 intravenous contrast. Dose reduction: mA and/or kV are adjusted by automated exposure control software based on patient size. FINDINGS: Uterus surgically absent. There is a small amount of intraluminal gas within the vaginal vault. There may be a small remnant cervix but not definite. There is no extraluminal gas within the abdomen or pelvis. Previous rib-enhancing fluid collection seen outside of hysterectomy has resolved. There is a trace amount of free pelvic fluid that is within physiologic limits posterior to the left ovary. Both ovaries are normal in appearance with small follicles. Liver is normal in size with a background of mild diffuse fatty infiltration. Gallbladder surgically absent. Pancreas and spleen are normal. Adrenal glands are normal. There is significant cortical thinning and scarring of the left kidney. No perinephric stranding or hydronephrosis. There are 2 tiny nonobstructing left renal stones measuring 2-3 mm. There is also a nonobstructing inferior right renal stones measuring 6 mm. Bladder is grossly normal. Small and large bowel loops are normal caliber. There is colonic diverticulosis that is mild. No acute diverticulitis or localized area of bowel inflammation. There is a normal appendix. Abdominal aorta is normal. Hepatic veins and portal veins patent. No abdominal pelvic lymphadenopathy. There is a fat-containing umbilical hernia measuring 2.5 cm. Bony structures are normal for age. Limited imaging of lower chest demonstrates clear lungs. CT/CT abdomen pelvis w con IMPRESSION: 1. Hysterectomy. There is a small amount of gas within the vaginal vault and may be within what appears to be a small cervical remnant, but there is no extraluminal gas in the pelvis to reflect dehiscence. Previous rim-enhancing fluid collection within the surgical bed by CT 05/12/2023 has resolved. Trace amount of free pelvic fluid in the pelvis is within physiologic limits. 2. Fatty infiltration of the liver with cholecystectomy. 3. Significant cortical thinning and scarring of left kidney. No objective or inflammatory changes of the kidneys. Few small nonobstructing bilateral renal stones. 4. Normal appendix. 5. Additional incidental findings discussed above. Electronically authenticated by: PETE MEEKS Date: 05/30/2023 17:21
[2023-05-30 16:46] LABS: Basophils Absolute Auto 0.1 10^3/uL (0.0-0.1); Basophils Percent Auto 0.9 % (0.2-2.0); Eosinophils Absolute Auto 0.1 10^3/uL (0.0-0.7); Eosinophils Percent Auto 1.6 % (0.9-7.0); Hematocrit 38.8 % (36.0-48.0); Hemoglobin 12.9 g/dL (12.0-16.0); Immature Granulocytes Abs Auto 0.01 10^3/uL (0.00-0.03); Immature Granulocytes Pct Auto 0.2 % (0.0-0.5); Lymphocytes Absolute Auto 2.2 10^3/uL (1.2-3.8); Lymphocytes Percent Auto 39.3 % (20.5-60.0); Mean Corpuscular HGB Conc 33.2 g/dL (29.9-35.2); Mean Corpuscular Hemoglobin 26.8 pg (26.7-34.0); Mean Corpuscular Volume 80.5 fL (81.0-99.0); Mean Platelet Volume 9.2 fL (9.5-13.5); Monocytes Absolute Auto 0.6 10^3/uL (0.3-0.8); Monocytes Percent Auto 11.3 % (1.7-12.0); Neutrophils Absolute Auto 2.6 10^3/uL (1.4-6.5); Neutrophils Percent Auto 46.7 % (43.0-75.0); Platelet Count 331 10^3/uL (150-450); Red Blood Count 4.82 10^6/uL (4.20-5.40); Red Cell Distribution Width 13.9 % (11.0-15.0); White Blood Count 5.5 10^3/uL (4.0-11.0)
[2023-05-30 17:00] LABS: Alanine Aminotransferase 32 U/L (14-59); Alkaline Phosphatase 73 U/L (46-116); Anion Gap 14.3; Aspartate Amino Transferase 19 U/L (15-37); BUN Creatinine Ratio 12.2; Bilirubin Total 0.4 mg/dL (0.2-1.0); Calcium 8.8 mg/dL (8.5-10.1); Carbon Dioxide 25.3 mmol/L (21.0-32.0); Chloride 104 mmol/L (98-107); Estimated GFR (African America >60 (>=60); Estimated GFR (Non-African Ame >60 (>=60); Glucose 101 mg/dL (74-106); Potassium 3.6 mmol/L (3.5-5.1); Sodium 140 mmol/L (136-145)
--- NOTE | 2023-05-30 17:27 | ED_ITS ---
HPI - Female Genitourinary General Chief complaint: Vaginal Bleeding Stated complaint: post hysterectomy 3 wks, excessive bleeding Time Seen by Provider: 05/30/23 16:29 Source: patient Mode of arrival: walk-in Limitations: no limitations History of Present Illness HPI Narrative: patient presents with heavier than expected vaginal bleeding. The patient had hysterectomy 3.5 weeks ago and had expected amount of vaginal bleeding. This slowly decreased over time. Then yesterday she developed increased vaginal bleeding which has continued today - she said that she is going through a pad an hour. She denied any pain in the pelvis, flank or abdomen. No dysuria. No nausea or vomiting. She denied any recent change in activity, heavy lifting or vigorous activity. Dr Gibbs performed the surgery. Related Data Home Medications Medication Instructions Recorded Confirmed olanzapine 10 mg-samidorphan 10 mg 1 tab PO DAILY 03/23/23 05/06/23 tablet (Lybalvi) hydrochlorothiazide 25 mg tablet 25 mg PO DAILY 04/24/23 05/06/23 olanzapine 15 mg-samidorphan 10 mg 1 tab PO .QHS 04/24/23 05/06/23 tablet (Lybalvi) Previous Rx's Medication Instructions Recorded ibuprofen 800 mg tablet 800 mg PO Q8H PRN pain 14 days #40 05/06/23 tabs oxycodone-acetaminophen 5 mg-325 1 tab PO Q6H PRN pain 7 days #28 05/06/23 mg tablet (Percocet) tabs metronidazole 500 mg tablet 500 mg PO BID 10 days #20 tabs 05/12/23 Allergies Allergy/AdvReac Type Severity Reaction Status Date / Time No Known Drug Allergies Allergy Verified 05/12/23 14:37 [facility] Medical History (Updated 05/30/23 @ 17:40 by Herman Hay) (03/2023) Surgical History (Updated 05/06/23 @ 06:42 by Araceli Recinos) Family History (Updated 03/30/23 @ 10:56 by Natalee Jules) Other Family history of hypertension Social History (Updated 04/24/23 @ 10:12 by Valencia Chavez NP) Within the past year, how often did you have a drink containing alcohol: monthly or less Smoking status: Never smoker Non-prescribed substance use: denies use 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 afebrile General: Well-appearing and in no apparent distress. Skin: Warm, dry, no pallor noted. Eye: Pupils are equal, round and EOMI. No scleral icterus. Ears, Nose, Mouth, and Throat: Oral mucosa is moist Cardiovascular: Regular Rate and Rhythm without murmur, gallop or rub. Respiratory: No accessory muscle use or respiratory distress. Lungs are clear to auscultation, no wheezing, rales or rhonchi Back: No midline lumbar vertebral tenderness. No CVA tenderness Musculoskeletal: normal ROM GI: Abdomen is soft, non-distended. Normal bowel sounds. No masses appreciated. Incisions are healing without dehiscence. No tenderness to palpation. No rebound, guarding, or rigidity noted. Neurological: A&O x4. No cranial nerve dysfunction observed. No truncal ataxia. Moves all extremities. Sensation intact. Psychiatric: Cooperative and interactive. Normal mood and affect. Constitutional Vital Signs, click to edit/add: Last Vital Signs Temp 97.9 F 05/30/23 16:20 Pulse 98 H 05/30/23 16:20 Resp 20 05/30/23 16:20 BP 127/83 05/30/23 16:20 Pulse Ox 98 05/30/23 16:20 O2 Del Method Room Air 05/30/23 16:20 Course Vital Signs Vital signs: Vital Signs Temperature 97.9 F 05/30/23 16:20 Pulse Rate 98 H 05/30/23 16:20 Respiratory Rate 20 05/30/23 16:20 Blood Pressure 127/83 05/30/23 16:20 Pulse Oximetry 98 05/30/23 16:20 Oxygen Delivery Method Room Air 05/30/23 16:20 Temperature 97.9 F 05/30/23 16:20 Pulse Rate 98 H 05/30/23 16:20 Respiratory Rate 20 05/30/23 16:20 Blood Pressure 127/83 05/30/23 16:20 Pulse Oximetry 98 05/30/23 16:20 Oxygen Delivery Method Room Air 05/30/23 16:20 MDM - Female Genitourinary MDM Narrative Medical decision making narrative: blood drawn and sent for testing. Patient had normal CBC including normal hemoglobin of 12.[address] scanning of the abdomen & pelvis revealed post surgical changes including a small amount of gas within the vaginal vault and what appears to be a small cervical remnant but no extraluminal gas in the pelvis to reflect dehiscence. Trace amount of free pelvic fluid is within physiologic limits. Per the radiologist. Dr Gibbs is out of town but returns in 2 days. Patient and I discussed her test results, exam findings and the radiologist's CT report. Hb stable. No sign of infection or post-operative issue on evaluation. Patient discharged home and will follow up with Dr Gibbs early next week. She was encouraged to return to the ED if she develops any worrisome new symptoms. Lab Data Attestation: I reviewed the patient's lab results. Labs: Lab Results 05/30/23 Range/Units 16:40 WBC 5.5 (4.0-11.0) 10^3/uL RBC 4.82 (4.20-5.40) 10^6/uL Hgb 12.9 (12.0-16.0) g/dL Hct 38.8 (36.0-48.0) % MCV 80.5 L (81.0-99.0) fL MCH 26.8 (26.7-34.0) pg MCHC 33.2 (29.9-35.2) g/dL RDW 13.9 (11.0-15.0) % Plt Count 331 (150-450) 10^3/uL MPV 9.2 L (9.5-13.5) fL Neut % (Auto) 46.7 (43.0-75.0) % Lymph % (Auto) 39.3 (20.5-60.0) % [place] % (Auto) 11.3 (1.7-12.0) % Eos % (Auto) 1.6 (0.9-7.0) % Baso % (Auto) 0.9 (0.2-2.0) % Neut # (Auto) 2.6 (1.4-6.5) 10^3/uL Lymph # (Auto) 2.2 (1.2-3.8) 10^3/uL [place] # (Auto) 0.6 (0.3-0.8) 10^3/uL Eos # (Auto) 0.1 (0.0-0.7) 10^3/uL Baso # (Auto) 0.1 (0.0-0.1) 10^3/uL Abs Immat Gran (auto) 0.01 (0.00-0.03) 10^3/uL Imm/Tot Granulo (auto) 0.2 (0.0-0.5) % Sodium 140 (136-145) mmol/L Potassium 3.6 (3.5-5.1) mmol/L Chloride 104 (98-107) mmol/L Carbon Dioxide 25.3 (21.0-32.0) mmol/L Anion Gap 14.3 BUN 11.0 (7.0-18.0) mg/dL Creatinine 0.90 (0.55-1.02) mg/dL Est GFR ( Amer) >60 (>=60) Est GFR (Non-Af Amer) >60 (>=60) BUN/Creatinine Ratio 12.2 Glucose 101 (74-106) mg/dL Calcium 8.8 (8.5-10.1) mg/dL Total Bilirubin 0.4 (0.2-1.0) mg/dL AST 19 (15-37) U/L ALT 32 (14-59) U/L Alkaline Phosphatase 73 (46-116) U/L Total Protein 8.0 (6.4-8.2) g/dL Albumin 4.0 (3.4-5.0) g/dL Globulin 4.0 g/dL Albumin/Globulin Ratio 1.[address] scan - abdomen: Radiologist's impression: Patient Name: CORI BARRIGA MRN: [id number] date: 1990 Sex: F Assigned Patient Location: ER Current Patient Location: ER Accession/Order Number: [id number] Exam Date: 05/30/2023 16:52 Report Date: 05/30/2023 17:21 At the request of: HERMAN HAY Procedure: CT abdomen pelvis w con CT abdomen and pelvis with contrast CLINICAL: post-operative vaginal bleeding , hysterectomy 3-4 weeks ago, heavy bleeding today. COMPARISON: CT pelvis 05/10/2023 TECHNIQUE: Computed tomography of the abdomen and pelvis was performed following the uneventful administration of 100 cc Omnipaque 300 intravenous contrast. Dose reduction: mA and/or kV are adjusted by automated exposure control software based on patient size. FINDINGS: Uterus surgically absent. There is a small amount of intraluminal gas within the vaginal vault. There may be a small remnant cervix but not definite. There is no extraluminal gas within the abdomen or pelvis. Previous rib-enhancing fluid collection seen outside of hysterectomy has resolved. There is a trace amount of free pelvic fluid that is within physiologic limits posterior to the left ovary. Both ovaries are normal in appearance with small follicles. Liver is normal in size with a background of mild diffuse fatty infiltration. Gallbladder surgically absent. Pancreas and spleen are normal. Adrenal glands are normal. There is significant cortical thinning and scarring of the left kidney. No perinephric stranding or hydronephrosis. There are 2 tiny nonobstructing left renal stones measuring 2-3 mm. There is also a nonobstructing inferior right renal stones measuring 6 mm. Bladder is grossly normal. Small and large bowel loops are normal caliber. There is colonic diverticulosis that is mild. No acute diverticulitis or localized area of bowel inflammation. There is a normal appendix. Abdominal aorta is normal. Hepatic veins and portal veins patent. No abdominal pelvic lymphadenopathy. There is a fat-containing umbilical hernia measuring 2.5 cm. Bony structures are normal for age. Limited imaging of lower chest demonstrates clear lungs. IMPRESSION: 1. Hysterectomy. There is a small amount of gas within the vaginal vault and may be within what appears to be a small cervical remnant, but there is no extraluminal gas in the pelvis to reflect dehiscence. Previous rim-enhancing fluid collection within the surgical bed by CT 05/12/2023 has resolved. Trace amount of free pelvic fluid in the pelvis is within physiologic limits. 2. Fatty infiltration of the liver with cholecystectomy. 3. Significant cortical thinning and scarring of left kidney. No objective or inflammatory changes of the kidneys. Few small nonobstructing bilateral renal stones. 4. Normal appendix. 5. Additional incidental findings discussed above. Electronically authenticated by: PETE MEEKS Date: 05/30/2023 17:21 Discharge Plan Discharge Chief Complaint: Vaginal Bleeding Clinical Impression: Postoperative vaginal bleeding, Vaginal bleeding Patient Disposition: Home, Self-Care Time of Disposition Decision: 17:39 Prescriptions / Home Meds: No Action Lybalvi 10-10 mg tablet 1 tab PO DAILY hydrochlorothiazide 25 mg tablet 25 mg PO DAILY Lybalvi 15-10 mg tablet 1 tab PO .QHS Patient Comments: LAST FILLED 01/08/2023 FOR 30 DAYS ibuprofen 800 mg tablet 800 mg PO Q8H PRN (Reason: pain) 14 Days Qty: 40 0RF oxycodone-acetaminophen [Percocet] 5-325 mg tablet 1 tab PO Q6H PRN (Reason: pain) 7 Days Qty: 28 0RF metronidazole 500 mg tablet 500 mg PO BID 10 Days Qty: 20 0RF Instructions: Vaginal Hysterectomy (DC) Stand Alone Forms: Portal Instructions Referrals: Jefferson Gibbs DO [Physician] - 1 week
[2023-05-30 17:31] VITALS: BP 127/89; BP 147/96; BP 148/103; PULSE 88; PULSE 92; PULSE 98
== END 2023-05-30 17:49 | disposition home or self-care (01) ==
PROVIDERS: Emergency Provider Emergency Medicine; PCP Family Medicine
DX: N99.820 Postprocedural hemorrhage of a genitourinary system organ or structure following a genitourinary system procedure (principal); Z90.710 Acquired absence of both cervix and uterus; Z79.899 Other long term (current) drug therapy
CPT/HCPCS: 36415; 74177; 80053; 85025; 99285; Q9967

== ENCOUNTER 2023-07-17 11:32 | Emergency (ER) | payer OTHER, SELFPAY ==
[2023-07-17 11:35] VITALS: BP 164/89; PULSE 83; RESP 16; TEMP 36.7; O2SAT 95; BMI 32.3
--- NOTE | 2023-07-17 12:00 | ED_ITS ---
HPI - Dental/Oral General Chief complaint: Dental/Oral Stated complaint: FACIAL PAIN/SORE THROAT Time Seen by Provider: 07/17/23 11:43 Source: patient and family Mode of arrival: walk-in Limitations: no limitations History of Present Illness HPI Narrative: Left lower real molar pain that began about a week ago. She previously had a small area she thought might be a crack or break in the tooth so she called to schedule dentist follow up - but the appointments keep getting rescheduled. No systemic complaints such as fever or vomiting. She said that the pain is along the left jaw. Using oragel for this without much improvement Related Data Home Medications Medication Instructions Recorded Confirmed olanzapine 10 mg-samidorphan 10 mg 1 tab PO DAILY 03/23/23 05/06/23 tablet (Lybalvi) hydrochlorothiazide 25 mg tablet 25 mg PO DAILY 04/24/23 05/06/23 olanzapine 15 mg-samidorphan 10 mg 1 tab PO .QHS 04/24/23 05/06/23 tablet (Lybalvi) Previous Rx's Medication Instructions Recorded ibuprofen 800 mg tablet 800 mg PO Q8H PRN pain 14 days #40 05/06/23 tabs oxycodone-acetaminophen 5 mg-325 1 tab PO Q6H PRN pain 7 days #28 05/06/23 mg tablet (Percocet) tabs metronidazole 500 mg tablet 500 mg PO BID 10 days #20 tabs 05/12/23 clindamycin HCl 150 mg capsule 450 mg PO TID 10 days #90 caps 07/17/23 nabumetone 750 mg tablet 750 mg PO BID PRN pain #20 tabs 07/17/23 Allergies Allergy/AdvReac Type Severity Reaction Status Date / Time No Known Drug Allergies Allergy Verified 07/17/23 11:39 [facility] Medical History (Updated 07/17/23 @ 12:03 by Vj Fraire) (03/2023) Surgical History (Updated 05/06/23 @ 06:42 by Araceli Recinos) Family History (Updated 03/30/23 @ 10:56 by Natalee Jules) Other Family history of hypertension Social History (Updated 04/24/23 @ 10:12 by Valencia Chavez NP) Within the past year, how often did you have a drink containing alcohol: monthly or less Smoking status: Never smoker Non-prescribed substance use: denies use 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 afebrile Head: Atraumatic and normocephalic. Eyes: Normal conjunctiva ENT: The oropharynx is normal. No pharyngeal erythema, uvular edema, tonsillar exudates, asymmetry or trismus. Uvula is midline. Mouth is normal to inspection with the exception of a pain on percussion of the tooth #17 without evidence of dental caries. There is no evidence of facial asymmetry or abscess formation. Floor of the mouth is soft. No tenderness in the submental or submandibular space. No tongue elevation or deviation. The patient has no evidence of periapical abscess, gingivitis or other acute pathology. Airway is patent. Neck: The neck demonstrates normal range of motion. No meningeals signs are present. No stridor. No masses or lymphandenopathy noted. Respiratory: No acute distress, lungs are clear to auscultation, no wheezing, rhonchi, or rales noted. No stridor or retractions are noted. Cardiovascular: Regular rate and rhythm Skin: The skin exam shows no evidence of rashes Neuro: Alert and oriented x4, normal speech Lymphatic: No cervical lymphadenopathy Constitutional Vital Signs, click to edit/add: Last Vital Signs Temp 98.1 F 07/17/23 11:35 Pulse 83 07/17/23 11:35 Resp 16 07/17/23 11:35 BP 164/89 H 07/17/23 11:35 Pulse Ox 95 07/17/23 11:35 O2 Del Method Room Air 07/17/23 11:35 Course Vital Signs Vital signs: Vital Signs Temperature 98.1 F 07/17/23 11:35 Pulse Rate 83 07/17/23 11:35 Respiratory Rate 16 07/17/23 11:35 Blood Pressure 164/89 H 07/17/23 11:35 Pulse Oximetry 95 07/17/23 11:35 Oxygen Delivery Method Room Air 07/17/23 11:35 Temperature 98.1 F 07/17/23 11:35 Pulse Rate 83 07/17/23 11:35 Respiratory Rate 16 07/17/23 11:35 Blood Pressure 164/89 H 07/17/23 11:35 Pulse Oximetry 95 07/17/23 11:35 Oxygen Delivery Method Room Air 07/17/23 11:35 MDM - Dental/Oral MDM Narrative Medical decision making narrative: I do not see any dental abscess. Patient given topical dental anesthetic paste in the ED and was discharged home with prescriptions for Relafen & Clindamycin. She has a dentist appointment Aug 03. Discharge Plan Discharge Chief Complaint: Dental/Oral Clinical Impression: Toothache Patient Disposition: Home, Self-Care Time of Disposition Decision: 12:03 Prescriptions / Home Meds: New clindamycin HCl 150 mg capsule 450 mg PO TID 10 Days Qty: 90 0RF nabumetone 750 mg tablet 750 mg PO BID PRN (Reason: pain) Qty: 20 0RF No Action Lybalvi 10-10 mg tablet 1 tab PO DAILY hydrochlorothiazide 25 mg tablet 25 mg PO DAILY Lybalvi 15-10 mg tablet 1 tab PO .QHS Patient Comments: LAST FILLED 01/08/2023 FOR 30 DAYS ibuprofen 800 mg tablet 800 mg PO Q8H PRN (Reason: pain) 14 Days Qty: 40 0RF oxycodone-acetaminophen [Percocet] 5-325 mg tablet 1 tab PO Q6H PRN (Reason: pain) 7 Days Qty: 28 0RF metronidazole 500 mg tablet 500 mg PO BID 10 Days Qty: 20 0RF Instructions: Toothache (ED) Stand Alone Forms: Portal Instructions
[2023-07-17] MEDS: BENZOCAINE 30 ML, lidocaine HCL 15 ML MM (12:27)
== END 2023-07-17 12:31 | disposition home or self-care (01) ==
PROVIDERS: Emergency Provider Emergency Medicine; PCP Family Medicine
DX: K08.89 Other specified disorders of teeth and supporting structures (principal); Z79.899 Other long term (current) drug therapy
CPT/HCPCS: 99282

== ENCOUNTER 2023-09-26 23:16 | Emergency (ER) | payer OTHER, SELFPAY ==
[2023-09-26 23:29] VITALS: BP 133/91; PULSE 91; RESP 18; TEMP 36.8; O2SAT 100; BMI 33.2
--- NOTE | 2023-09-27 00:04 | CT_ITS ---
The [address] [address] Patient Name: CORI BARRIGA MRN: [id number] date: 1990 Sex: F Assigned Patient Location: ER Current Patient Location: ER Accession/Order Number: [id number] Exam Date: 09/27/2023 00:37 Report Date: 09/27/2023 01:18 At the request of: VARGHESE CHUA Procedure: CT abdomen pelvis wo con EXAM: CT abdomen pelvis wo con HISTORY: left flank pain COMPARISON: Multiple priors, most recent CT abdomen pelvis 05/30/2023 TECHNIQUE: Multiple axial views CT abdomen pelvis without IV contrast. Coronal sagittal reformats. FINDINGS: Visualized lung bases and cardiac apex are unremarkable. Status post cholecystectomy and hysterectomy. Liver, pancreas, spleen, adrenal glands, and appendix are unremarkable. Multiple 1-6 mm nonobstructing left renal stones (at least 10 calculi scattered throughout the left kidney). A 7 mm nonobstructing right inferior renal stone.Chronic left renal cortical thinning and scarring throughout the left kidney. Mild sigmoid diverticula. No pericolonic inflammatory stranding. No evidence for small bowel obstruction, large ascites, or free air. Small fat-containing umbilical hernia without bowel protrusion. No acute bony abnormality. CT/CT abdomen pelvis wo con IMPRESSION: Multiple 1-6 mm nonobstructing left renal stones (at least 10 calculi scattered throughout the left kidney). A 7 mm nonobstructing right inferior renal stone. No radiopaque ureteral stone, urinary bladder stone, or hydronephrosis. Chronic left renal cortical thinning and scarring throughout the left kidney. Mild sigmoid diverticula. No pericolonic inflammatory stranding. Electronically authenticated by: BENITO SIMPSON Date: 09/27/2023 01:18
--- NOTE | 2023-09-27 00:05 | ED.ABDPAIN1 ---
HPI - Abdominal Pain General Chief Complaint: Abdominal Pain Stated Complaint: back pain Time Seen by Provider: 09/27/23 00:00 Source: patient Mode of arrival: walk-in Limitations: no limitations History of Present Illness HPI narrative: patient presents complaining of left flank pain that started yesterday. Pain similar to past kidney stones. She is nauseated but has not vomited. no fever, chest pain or dysuria/hematuria MD elicited complaint: Reports flank pain Related Data Home Medications Medication Instructions Recorded Confirmed olanzapine 10 mg-samidorphan 10 mg 1 tab PO DAILY 03/23/23 05/06/23 tablet (Lybalvi) hydrochlorothiazide 25 mg tablet 25 mg PO DAILY 04/24/23 05/06/23 olanzapine 15 mg-samidorphan 10 mg 1 tab PO .QHS 04/24/23 05/06/23 tablet (Lybalvi) Previous Rx's Medication Instructions Recorded ibuprofen 800 mg tablet 800 mg PO Q8H PRN pain 14 days #40 05/06/23 tabs oxycodone-acetaminophen 5 mg-325 1 tab PO Q6H PRN pain 7 days #28 05/06/23 mg tablet (Percocet) tabs metronidazole 500 mg tablet 500 mg PO BID 10 days #20 tabs 05/12/23 clindamycin HCl 150 mg capsule 450 mg (3 x 150 mg) PO TID 10 days 07/17/23 #90 caps nabumetone 750 mg tablet 750 mg PO BID PRN pain #20 tabs 07/17/23 Allergies Allergy/AdvReac Type Severity Reaction Status Date / Time No Known Drug Allergies Allergy Verified 09/26/23 23:34 Review of Systems ROS Status of ROS 10 or more systems reviewed and unremarkable except as noted in history and below [facility] Medical History (Updated 09/27/23 @ 03:14 by Seng Verdin MD) Dyspareunia Menorrhagia ?N92.0 - Excessive and frequent menstruation with regular cycle (ICD-10) Dysmenorrhea ?N94.6 - Dysmenorrhea, unspecified (ICD-10) Pelvic pain ?R10.2 - Pelvic and perineal pain (ICD-10) Anemia ?D64.9 - Anemia, unspecified (ICD-10) Kidney stones ?N20.0 - Calculus of kidney (ICD-10) S/P extracorporeal shock wave therapy (03/2023) ?Z98.890 - Other specified postprocedural states (ICD-10) Bipolar disorder ?F31.9 - Bipolar disorder, unspecified (ICD-10) Ureteral stone ?N20.1 - Calculus of ureter (ICD-10) Kidney stones ?N20.0 - Calculus of kidney (ICD-10) Surgical History (Updated 05/06/23 @ 06:42 by Araceli Recinos) History of wisdom tooth extraction ?K08.409 - Partial loss of teeth, unspecified cause, unspecified class (ICD-10) H/O LEEP ?Z98.890 - Other specified postprocedural states (ICD-10) History of endometrial ablation ?Z98.890 - Other specified postprocedural states (ICD-10) S/P cystoscopy ?Z98.890 - Other specified postprocedural states (ICD-10) S/P ureteral stent placement ?Z96.0 - Presence of urogenital implants (ICD-10) H/O ureteroscopy ?Z98.890 - Other specified postprocedural states (ICD-10) History of cholecystectomy ?Z90.49 - Acquired absence of other specified parts of digestive tract (ICD-10) Family History (Updated 03/30/23 @ 10:56 by Natalee Jules) Other Family history of hypertension Social History (Updated 04/24/23 @ 10:12 by Valencia Chavez NP) Within the past year, how often did you have a drink containing alcohol: monthly or less Smoking status: Never smoker Non-prescribed substance use: denies use 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 Highest level of school completed/degree received: Master's degree Are you now , , , , never or living with a partner: Gender Identity: female Exam Constitutional Vital Signs, click to edit/add: Last Vital Signs Temp 98.2 F 09/26/23 23:29 Pulse 74 09/27/23 01:42 Resp 16 09/27/23 01:42 BP 111/75 09/27/23 01:42 Pulse Ox 98 09/27/23 01:42 O2 Del Method Room Air 09/27/23 01:42 Common normals: oriented x3, healthy appearing, alert and well nourished General appearance: in distress (mild distress) HENMT Common normals: normocephalic and head/scalp atraumatic Eye Common normals: EOMs intact bilaterally and conjunctivae normal Respiratory Common normals: normal respiratory effort, no retractions and no use of accessory muscles Cardio Common normals: regular rate, regular rhythm, S1 normal heart sound and S2 normal heart sound GI Other: left flank tenderness Extremity Common normals: normal to inspection and full ROM Neuro Common normals: oriented x3, CN's II-XII intact bilaterally, moves all extremities and no focal motor deficits Psych Appearance: grossly normal Course Vital Signs Vital signs: Vital Signs Temperature 98.2 F 09/26/23 23:29 Pulse Rate 91 H 09/26/23 23:29 Respiratory Rate 18 09/26/23 23:29 Blood Pressure 133/91 09/26/23 23:29 Pulse Oximetry 100 09/26/23 23:29 Oxygen Delivery Method Room Air 09/26/23 23:29 Temperature 98.2 F 09/26/23 23:29 Pulse Rate 74 09/27/23 01:42 Respiratory Rate 16 09/27/23 01:42 Blood Pressure 111/75 09/27/23 01:42 Pulse Oximetry 98 09/27/23 01:42 Oxygen Delivery Method Room Air 09/27/23 01:42 MDM - Abdominal Pain MDM Narrative Medical decision making narrative: past history of kidney stones. Presents with left flank pain and is concern she may have another stone. No hematuria or dysuria. CT without obstructing stones. UA not infected. patient medicated for pain and improved. Discharged home to follow up with her doctor Lab Data Labs: Lab Results 09/27/23 09/27/23 Range/Units 00:18 02:15 WBC 9.2 (4.0-11.0) 10^3/uL RBC 4.52 (4.20-5.40) 10^6/uL Hgb 12.4 (12.0-16.0) g/dL Hct 38.1 (36.0-48.0) % MCV 84.3 (81.0-99.0) fL MCH 27.4 (26.7-34.0) pg MCHC 32.5 (29.9-35.2) g/dL RDW 13.4 (11.0-15.0) % Plt Count 332 (150-450) 10^3/uL MPV 9.8 (9.5-13.5) fL Neut % (Auto) 49.1 (43.0-75.0) % Lymph % (Auto) 40.5 (20.5-60.0) % Davie % (Auto) 7.8 (1.7-12.0) % Eos % (Auto) 1.6 (0.9-7.0) % Baso % (Auto) 0.8 (0.2-2.0) % Neut # (Auto) 4.5 (1.4-6.5) 10^3/uL Lymph # (Auto) 3.7 (1.2-3.8) 10^3/uL Davie # (Auto) 0.7 (0.3-0.8) 10^3/uL Eos # (Auto) 0.2 (0.0-0.7) 10^3/uL Baso # (Auto) 0.1 (0.0-0.1) 10^3/uL Abs Immat Gran (auto) 0.02 (0.00-0.03) 10^3/uL Imm/Tot Granulo (auto) 0.2 (0.0-0.5) % Sodium 141 (136-145) mmol/L Potassium 3.5 (3.5-5.1) mmol/L Chloride 104 (98-107) mmol/L Carbon Dioxide 29.7 (21.0-32.0) mmol/L Anion Gap 10.8 BUN 9.0 (7.0-18.0) mg/dL Creatinine 0.82 (0.55-1.02) mg/dL Est GFR ( Amer) >60 (>=60) Est GFR (Non-Af Amer) >60 (>=60) BUN/Creatinine Ratio 11.0 Glucose 94 (74-106) mg/dL Lactate 0.6 (0.4-2.0) mmol/L Calcium 9.0 (8.5-10.1) mg/dL Urine Color Yellow (YELLOW) Urine Clarity Clear (CLEAR) Urine pH 6.5 (5.0-9.0) Ur Specific Whitney 1.025 (1.005-1.025) Urine Protein Negative (NEG/TRACE) mg/dL Urine Glucose (UA) Negative (NEGATIVE) mg/dL Urine Ketones Negative (NEGATIVE) mg/dL Urine Occult Blood Trace-i (NEGATIVE) Urine Nitrite Negative (NEGATIVE) Urine Bilirubin Negative (NEGATIVE) Urine Urobilinogen 0.2 (0.2-1.0) EU/dL Ur Leukocyte Esterase Negative (NEGATIVE) Urine RBC 2-5 A (0-2) #/HPF Urine WBC None seen (NONE SEEN) #/HPF Ur Squamous Epith Cells None seen (NONE/RARE) #/LPF Urine Crystals None seen (None Seen) #/HPF Urine Bacteria None seen (NONE SEEN) #/HPF Urine Casts None seen (NONE SEEN) #/LPF Urine Mucus None seen (NONE SEEN) Urine HCG, Qual Negative (NEGATIVE) Discharge Plan Discharge Chief Complaint: Abdominal Pain Clinical Impression: Acute left flank pain Patient Disposition: Home, Self-Care Prescriptions / Home Meds: No Action Lybalvi 10-10 mg tablet 1 tab PO DAILY hydrochlorothiazide 25 mg tablet 25 mg PO DAILY Lybalvi 15-10 mg tablet 1 tab PO .QHS Patient Comments: LAST FILLED 01/08/2023 FOR 30 DAYS ibuprofen 800 mg tablet 800 mg PO Q8H PRN (Reason: pain) 14 Days Qty: 40 0RF oxycodone-acetaminophen [Percocet] 5-325 mg tablet 1 tab PO Q6H PRN (Reason: pain) 7 Days Qty: 28 0RF metronidazole 500 mg tablet 500 mg PO BID 10 Days Qty: 20 0RF clindamycin HCl 150 mg capsule 450 mg PO TID 10 Days Qty: 90 0RF nabumetone 750 mg tablet 750 mg PO BID PRN (Reason: pain) Qty: 20 0RF Instructions: Flank Pain (ED) Additional Instructions: follow up with Dr Das thursday Stand Alone Forms: Portal Instructions Referrals: Ignacio Das MD [Primary Care Provider] - 1 week
[2023-09-27] MEDS: 0.9 % SODIUM CHLORIDE 1,000 ML 999 ML IV (00:22)
[2023-09-27] MEDS: ORPHENADRINE 60 MG/ 2 ML VIAL IV (00:23)
[2023-09-27] MEDS: ONDANSETRON PF 4 MG/2 ML VIAL IV (00:23)
[2023-09-27] MEDS: KETOROLAC TROMETHAMINE 30 MG/ML VIAL IVP (00:35)
[2023-09-27 00:57] LABS: Basophils Absolute Auto 0.1 10^3/uL (0.0-0.1); Basophils Percent Auto 0.8 % (0.2-2.0); Eosinophils Absolute Auto 0.2 10^3/uL (0.0-0.7); Eosinophils Percent Auto 1.6 % (0.9-7.0); Hematocrit 38.1 % (36.0-48.0); Hemoglobin 12.4 g/dL (12.0-16.0); Immature Granulocytes Abs Auto 0.02 10^3/uL (0.00-0.03); Immature Granulocytes Pct Auto 0.2 % (0.0-0.5); Lymphocytes Absolute Auto 3.7 10^3/uL (1.2-3.8); Lymphocytes Percent Auto 40.5 % (20.5-60.0); Mean Corpuscular HGB Conc 32.5 g/dL (29.9-35.2); Mean Corpuscular Hemoglobin 27.4 pg (26.7-34.0); Mean Corpuscular Volume 84.3 fL (81.0-99.0); Mean Platelet Volume 9.8 fL (9.5-13.5); Monocytes Absolute Auto 0.7 10^3/uL (0.3-0.8); Monocytes Percent Auto 7.8 % (1.7-12.0); Neutrophils Absolute Auto 4.5 10^3/uL (1.4-6.5); Neutrophils Percent Auto 49.1 % (43.0-75.0); Platelet Count 332 10^3/uL (150-450); Red Blood Count 4.52 10^6/uL (4.20-5.40); Red Cell Distribution Width 13.4 % (11.0-15.0); White Blood Count 9.2 10^3/uL (4.0-11.0)
[2023-09-27 01:00] LABS: Anion Gap 10.8; Carbon Dioxide 29.7 mmol/L (21.0-32.0); Chloride 104 mmol/L (98-107); Estimated GFR (African America >60 (>=60); Estimated GFR (Non-African Ame >60 (>=60); Glucose 94 mg/dL (74-106); Potassium 3.5 mmol/L (3.5-5.1); Sodium 141 mmol/L (136-145)
[2023-09-27 01:08] LABS: Lactate/Lactic Acid 0.6 mmol/L (0.4-2.0)
[2023-09-27] MEDS: MORPHINE SULFATE 4 MG/ML VIAL IV (01:37)
[2023-09-27 01:42] VITALS: BP 111/75; PULSE 74; RESP 16; O2SAT 98
[2023-09-27 02:24] LABS: Bilirubin Urine NEGATIVE (NEGATIVE); Blood Urine TRACE-I (NEGATIVE); Clarity Urine CLEAR (CLEAR); Color Urine YELLOW (YELLOW); Glucose Urine UA NEGATIVE (NEGATIVE); Ketones Urine NEGATIVE (NEGATIVE); Leukocyte Esterase Urine NEGATIVE (NEGATIVE); Nitrite Urine NEGATIVE (NEGATIVE); Protein Urine NEGATIVE (NEG/TRACE); Specific Gravity Urine 1.025 (1.005-1.025); Urobilinogen Urine 0.2 EU/dL (0.2-1.0); pH Urine 6.5 (5.0-9.0)
[2023-09-27 02:43] LABS: Bacteria Urine NONE SEEN #/HPF (NONE SEEN); Crystals Seen? None Seen #/HPF (None Seen); Mucus Urine NONE SEEN (NONE SEEN); Squamous Epithelial Cell Urine NONE SEEN #/LPF (NONE/RARE); Urine Microscopic Indicated YES; WBC Urine NONE SEEN #/HPF (NONE SEEN)
[2023-09-27 02:44] LABS: Cast Seen? NONE SEEN #/LPF (NONE SEEN)
[2023-09-27 02:50] LABS: HCG Qualitative Urine* NEGATIVE (NEGATIVE)
== END 2023-09-27 03:32 | disposition home or self-care (01) ==
PROVIDERS: Emergency Provider Internal Medicine; PCP Family Medicine
DX: R10.9 Unspecified abdominal pain (principal); Z87.442 Personal history of urinary calculi; Z79.899 Other long term (current) drug therapy; F31.9 Bipolar disorder, unspecified; Z98.890 Other specified postprocedural states; Z90.49 Acquired absence of other specified parts of digestive tract
CPT/HCPCS: 36415; 74176; 80048; 81001; 83605; 84703; 85025; 96374; 96375; 99285

== ENCOUNTER 2023-11-23 21:27 | Emergency (ER) | payer OTHER, SELFPAY ==
[2023-11-23 21:31] VITALS: BP 150/99; PULSE 89; RESP 16; TEMP 36.6; O2SAT 99; BMI 32.3
--- OUTSIDE RECORDS SUMMARY | 2023-11-23 21:32 | XMS_ITS | CCD ---
Author Name Unknown Address [address] [place] [address] Organization [facility] Care Team Providers Care Risk Management Analyst Name Role Phone Phil Aviles Attending UnavailPhil Lam Admitting UnavailDomingo Rea Primary Care Unavailable Domingo Das MD Unavailable DANIEL SANTIAGO Attending Unavailable DOMINGO DAS Referring Unavailable Domingo Das Primary Care Physician LILLIAN ., DR LANE Primary Care Unavailable NEVILLE ., DR TOLBERT Admitting Unavailable NEVILLE ., DR TOLBERT Attending Unavailable SILVERIO, DR ERWIN Turner Consulting Unavailable SILVERIO, DR ERWIN Turner Attending Unavailable LILLIAN ., DR LANE Primary Care Unavailable SILVERIO, DR ERWIN Turner Admitting Unavailable ERICKA IGLESIAS Consulting Unavailable VARUN ., ORA Consulting Unavailable VARUN ., ORA Attending Unavailable HOY ., DR LANE Primary Care Unavailable VARUN ., ORA Admitting Unavailable VILLA ., DR CASTELLANO Admitting Unavailable VILLA ., DR CASTELLANO Consulting Unavailable VILLA ., DR CASTELLANO Attending Unavailable HOY ., DR LANE Primary Care Unavailable HOY ., DR LANE Primary Care Unavailable PAY ., DR XIAO Admitting Unavailable STEPHANIE RAMIREZ Consulting Unavailable PAY ., DR XIAO Attending Unavailable FARTUN NOVOA Consulting Unavailable VARUN ., ORA Attending Unavailable VARUN ., ORA Admitting Unavailable DAJUAN, DR GLEN Alford Consulting Unavailable HOY ., DR LANE Primary Care Unavailable VARUN ., ORA Consulting Unavailable VILLA ., DR CASTELLANO Consulting Unavailable VILLA ., DR CASTELLANO Attending Unavailable VILLA ., DR CASTELLANO Admitting Unavailable HOY ., DR LANE Primary Care Unavailable HOY ., DR ALNE Primary Care Unavailable HOY ., DR LANE Consulting Unavailable HOY ., DR LANE Attending Unavailable HOY ., DR LANE Admitting Unavailable COLDWATER, DR GLEN Alford Consulting Unavailable HOY ., DR LANE Primary Care Unavailable NEVILLE ., DR TOLBERT Admitting Unavailable NEVILLE ., DR TOLBERT Attending Unavailable NEVILLE ., DR TOLBERT Consulting Unavailable VILLA ., DR CASTELLANO Consulting Unavailable VILLA ., DR CASTELLANO Attending Unavailable HOY ., DR LANE Primary Care Unavailable VILLA ., DR CASTELLANO Admitting Unavailable ZIEBER, DR JENNIFER Turner Consulting Unavailable HOY ., DR LANE Primary Care Unavailable NEVILLE ., DR TOLBERT Admitting Unavailable NEVILLE ., DR TOLBERT Attending Unavailable WEST, DR GLEN Alford Consulting Unavailable NEVILLE ., DR TOLBERT Consulting Unavailable HOY ., DR LANE Primary Care Unavailable NEVILLE ., DR TOLBERT Admitting Unavailable NEVILLE ., DR TOLBERT Attending Unavailable NEVILLE ., DR TOLBERT Consulting Unavailable HOY ., DR LANE Primary Care Unavailable NEVILLE ., DR TOLBERT Admitting Unavailable NEVILLE ., DR TOLBERT Attending Unavailable NEVILLE ., DR TOLBERT Consulting Unavailable BALWINDER DUNAWAY Consulting Unavailable MILTON VARMA Consulting Unavailable VILLA ., DR CASTELLANO Admitting Unavailable VILLA ., DR CASTELALNO Consulting Unavailable VILLA ., DR CASTELLANO Attending Unavailable HOY ., DR LANE Primary Care Unavailable MILTON HARTMAN Consulting Unavailable KORTNEY ACOSTA Consulting Unavailable HOY ., DR LANE Primary Care Unavailable HOY ., DR LANE Consulting Unavailable HOY ., DR LANE Attending Unavailable HOY ., DR LANE Admmanpreet Unavailable VILLA ., DR CASTELLANO Consulting Unavailable PAY ., DR XIAO Consulting Unavailable MARKER ., DR YE Consulting Unavailable KESHIA IRIZARRY Consulting Unavailable GM HERNANDEZ Consulting Unavailable NEVILLE ., DR TOLBERT Admitting Unavailable HOY ., DR LANE Primary Care Unavailable NEVILLE ., DR TOLBERT Attending Unavailable NEVILLE ., DR TOLBERT Consulting Unavailable VILLACaesar R Attending Unavailable VILLA, Caesar Turner Attending Unavailable VILLA, Caesar R Attending Unavailable VILLA, Caesar R Attending Unavailable VILLA, Caesar Turner Attending Unavailable HoyDomingo Referring Unavailable VILLACaesar Attending Unavailable VILLA, Caesar Turner Attending Unavailable Medications Current Medications Medication Drug Class(es) Dates Sig (Normalized) Sig (Original) benztropine mesylate 1 mg oral tablet (1 source) Anticholinergic, Antihistamine Start: 12-24-2022 benztropine 1 mg Tab Refills(s) 0 Start Date: 12/24/22 Status: Ordered busPIRone hydrochloride 7.5 mg oral tablet (1 source) Start: 12-24-2022 busPIRone 7.5 mg oral tablet Refills(s) 0 Start Date: 12/24/22 Status: Ordered citalopram 10 mg oral tablet (1 source) Serotonin Reuptake Inhibitor Start: 12-24-2022 citalopram 10 mg Tab Refills(s) 0 Start Date: 12/24/22 Status: Ordered hydrOXYzine pamoate 50 mg oral capsule (1 source) Antihistamine Start: 12-24-2022 hydrOXYzine pamoate 50 mg Cap Refills(s) 0 Start Date: 12/24/22 Status: Ordered OLANZapine 15 mg oral tablet (1 source) Atypical Antipsychotic Start: 12-24-2022 olanzapine 15 mg oral tablet Refills(s) 0 Start Date: 12/24/22 Status: Ordered olanzapine 15 MG / samidorphan 10 MG Oral Tablet [Lybalvi] (1 source) Start: 03-20-2023 Lybalvi 15 mg-10 mg oral tablet Refill(s) 0 Start Date: 03/20/23 Status: Ordered QUEtiapine 100 mg oral tablet (1 source) Atypical Antipsychotic Start: 12-24-2022 quetiapine 100 mg Tab Refills(s) 0 Start Date: 12/24/22 Status: Ordered Problems Active Problems Problem Classification Problem Date Documented Da te Episodic/Chronic Abdominal hernia (1 source) Umbilical hernia without obstruction or gangrene; Translations: [UMBILICAL HERNIA W/O OBST/GANGRENE] Onset: 02-18-2023 Episodic Abdominal pain (8 sources) Flank pain; Translations: [Unspecified abdominal pain] Onset: 09-05-2022 02-28-2020 Episodic Calculus of urinary tract (11 sources) Kidney stone; Translations: [Personal history of urinary calculi] Onset: 09-01-2022 12-19-2019 Episodic Genitourinary symptoms and ill-defined conditions (3 sources) Urge incontinence of urine; Translations: [Presence of urogenital implants] Onset: 09-09-2022 12-19-2019 Chronic Genitourinary symptoms and ill-defined conditions (15 sources) Dysuria; Translations: [Increased frequency of urination] Onset: 02-18-2023 02-28-2020 Episodic Menstrual disorders (5 sources) Excessive and frequent menstruation with regular cycle; Translations: [EXCESS FREQ MENSTRUATION W/REG CYCL] Onset: 11-04-2022 Chronic Mood disorders (4 sources) Bipolar disorder, unspecified; Translations: [Major depressive disorder, single episode, unspecified] Onset: 08-13-2022 03-20-2023 Chronic Nausea and vomiting (4 sources) Nausea with vomiting, unspecified; Translations: [NAUSEA WITH VOMITING UNSPECIFIED] Onset: 02-16-2023 Episodic Other aftercare (1 source) Other intermediate (current) drug therapy; Translations: [OTH 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 CONCENTRATION OPERATOR CURRENT DRUG THERAPY] Onset: 02-18-2023 Episodic Other aftercare (1 source) intermediate designer (current) use of oral hypoglycemic drugs; Translations: [[facility] USE ORAL HYPOGLYCEMIC DX] Onset: 02-18-2023 Episodic Other diseases of bladder and urethra (2 sources) Urethral stricture 12-19-2019 Episodic Other diseases of kidney and ureters (2 sources) Cyst of kidney 12-19-2019 Episodic Other nutritional; endocrine; and metabolic disorders (2 sources) Body mass index 30+ - obesity 02-28-2020 Chronic Other nutritional; endocrine; and metabolic disorders (1 source) Morbid (severe) obesity due to excess calories; Translations: [MORBID SEVERE OBES D/T EXCESS ROSS] Onset: 02-18-2023 Chronic Other nutritional; endocrine; and metabolic disorders (1 source) Body mass index (BMI) 34.0-34.9, adult; Translations: [BODY MASS INDEX BMI 34.0-34.9 ADULT] Onset: 02-18-2023 Chronic Other nutritional; endocrine; and metabolic disorders (1 source) Body mass index (BMI) 39.0-39.9, adult; Translations: [BODY MASS INDEX BMI 39.0-39.9 ADULT] Onset: 09-28-2022 Chronic Other nutritional; endocrine; and metabolic disorders (1 source) Body mass index (BMI) 40.0-44.9, adult; Translations: [BODY MASS INDEX BMI 40.0-44.9 ADULT] Onset: 08-14-2022 Chronic Other screening for suspected conditions (not mental disorders or infectious disease) (5 sources) Encounter for screening for malignant neoplasm of cervix; Translations: [Other specified abnormal findings of blood chemistry] Onset: 09-03-2022 Episodic Residual codes; unclassified (1 source) Acquired absence of other specified parts of digestive tract; Translations: [ACQ ABSENCE OTH PART DIGESTV TRACT] Onset: 02-18-2023 Episodic Unclassified (1 source) NO SHOW Unclassified (2 sources) Finding of sensation of bladder 08-20-2021 Unclassified (1 source) CONTACT W/AND (SUSP) EXPOS COVID-19; Translations: [CONTACT W/AND (SUSP) EXPOS COVID-19] Onset: 11-04-2022 Urinary tract infections (7 sources) Pyelonephritis; Translations: [Urinary tract infectious disease] Onset: 08-14-2022 11-24-2019 Episodic Past or Other Problems Problem Classification Problem Date Documented Date Episodic/Chronic Cancer of cervix (2 sources) Low grade squamous intraepithelial lesion on cytologic smear of cervix (LGSIL); Translations: [High grade squamous intraepithelial lesion on cytologic smear of cervix (HGSIL)] Onset: 11-12-2022 Episodic Deficiency and other anemia (1 source) Iron deficiency anemia, unspecified; Translations: [IRON DEFICIENCY ANEMIA UNSPECIFIED] Onset: 09-03-2022 Episodic Fluid and electrolyte disorders (2 sources) Dehydration; Translations: [Hypo-osmolality and hyponatremia] Onset: 09-03-2022 Episodic Immunizations and screening for infectious disease (1 source) Encounter for screening for human papillomavirus (HPV); Translations: [ENC SCREENING HUMAN PAPILLOMAVIRUS] Onset: 07-31-2022 Episodic Ovarian cyst (1 source) Other ovarian cyst, right side; Translations: [OTHER OVARIAN CYST RIGHT SIDE] Onset: 11-04-2022 Episodic Septicemia (except in labor) (1 source) Sepsis due to streptococcus, group B; Translations: [SEPSIS DUE TO STREPTOCOCCUS GROUP B] Onset: 09-03-2022 Episodic Sprains and strains (4 sources) Sprain of calcaneofibular ligament of left ankle, initial encounter; Translations: [SPRAIN CALCANEOFIB LIG LT ANK INIT] Onset: 07-02-2022 Episodic Suicide and intentional self-inflicted injury (5 sources) Suicidal ideations; Translations: [Suicidal ideations] Onset: 08-13-2022 Episodic Results Test Name Value Interpretation Reference Range Facility Lab Reportson 06-05-2023 Lab Reports [id number] .00CD:[address] [facility] Reminderson 04-24-2023 Reminders - From: Whitney Collier To: PATEL MADDOX - Results; Sent: 03/20/2023 12:53:35 EDT Show up: 04/17/2023 12:52:00 EDT Subject: Electrolyte panel Due Date/Time: 04/17/2023 12:52:00 EDT Pt should be getting electrolyte panel April 17 after starting HCTZ. Also has hx of low K but recent level was wnl. Please check for these results and once they are in, call the pt with the results. duplicate message [facility] Operative Reporton Operative Report [id number]. 00CD:[address] [facility] RAD - MISCon 04-10-2023 RAD - MISC [id number] .00CD:[address] [facility] Lab Reportson 04-06-2023 Lab Reports [id number] .00CD:[address] [facility] Lab Reports [id number] .00CD:[address] [facility] Lab Reportson 03-23-2023 Lab Reports [id number] .00CD:[address] [facility] Lab Reports [id number] .00CD:[address] [facility] Lab Reports [id number] .00CD:[address] [facility] RAD - CT Reporton 03-23-2023 RAD - CT Report [id number] .00CD:127 [facility] RAD - CT Report [id number] .00CD:127 [facility] Ambulatory Visit Summaryon 0 03-20-2023 Ambulatory Visit Summary CORI BARRIGA :1990 Visit Date:03/20/2023 Ambulatory Visit Instructions Your Diagnosis Kidney stone Hypercalciuria History of kidney stones Hyperoxaluria Your Care Team Attending Physician - Caesar VILLA MD Primary Care Physician - Domingo Das MD This Is Your Medications List Contact prescribing physician if questions or concerns olanzapine-samidorpha n (Lybalvi 15 mg-10 mg oral tablet) Procedures Performed Cystoscopic laser lithotripsy of ureteric calculus (09/19/2022), Cystoscopic insertion of ureteric stent (08/22/2022), Cystoureteroscopy (04/05/2020), Cystoscopy of ureter (03/01/2020), Cystoscopic insertion of ureteric stent (02/27/2020), Cystourethroscopy with dilation of urethral stricture (12/19/2019), Cholecystectomy (05/30/2012). Discharge Vitals Heart Rate (Peripheral) 80 Respiratory Rate 16 Blood Pressure 128/73 Height 168 cm Height 66 in Weight 95 kg Weight 209 lb BMI 33.66 What to do next You Need to Schedule the Following Appointments Follow Up with IDALMIS BORDEN, Caesar Turner, DANYA When: Where: [facility] [address] [place] [address]- Medications What When Instructions Unchanged olanzapine-samidorpha n (Lybalvi 15 mg-10 mg oral tablet) Contact prescribing physician if questions or concerns Allergies No Known Allergies Problems Ongoing - Any problem that you are currently receiving treatment for. Bipolar disorder BMI 33.0-33.9,adult Dysuria Feeling of incomplete bladder emptying Flank pain Frequency of urination History of kidney stones Hypercalciuria Hyperoxaluria Kidney stone Microhematuria Nocturia Pyelonephritis Renal cyst Stricture of female urethra Urge incontinence Urinary urgency UTI (urinary tract infection) Education Materials Dietary Guidelines to Help Prevent Kidney Stones Kidney stones are deposits of minerals and salts that form inside your kidneys. Your risk of developing kidney stones may be greater depending on your diet, your lifestyle, the medicines you take, and whether you have certain medical conditions. Most people can lower their chances of developing kidney stones by following the instructions below. Your dietitian may give you more specific instructions depending on your overall health and the type of kidney stones you tend to develop. What are tips for following this plan? Reading food labels ? Choose foods with no salt added or low-salt labels. Limit your salt (sodium) intake to less than 1,500 mg a day. ? Choose foods with calcium for each meal and snack. Try to eat about 300 mg of calcium at each meal. Foods that contain 200?500 mg of calcium a serving include: ? 8 oz (237 mL) of milk, calcium-fortifiednon- dairy milk, and calcium-fortifiedfrui t juice. Calcium-fortified means that calcium has been added to these drinks. ? 8 oz (237 mL) of kefir, yogurt, and soy yogurt. ? 4 oz (114 g) of tofu. ? 1 oz (28 g) of cheese. ? 1 cup (150 g) of dried figs. ? 1 cup (91 g) of cooked broccoli. ? One 3 oz (85 g) can of sardines or mackerel. Most people need 1,000?1,500 mg of calcium a day. Talk to your dietitian about how much calcium is recommended for you. Shopping ? Buy plenty of fresh fruits and vegetables. Most people do not need to avoid fruits and vegetables, even if these foods contain nutrients that may contribute to kidney stones. ? When shopping for convenience foods, choose: ? Whole pieces of fruit. ? Pre-made salads with dressing on the side. ? Low-fat fruit and yogurt smoothies. ? Avoid buying frozen meals or prepared deli foods. These can be high in sodium. ? Look for foods with live cultures, such as yogurt and kefir. ? Choose high-fiber grains, such as whole-wheat breads, oat bran, and wheat cereals. Cooking ? Do not add salt to food when cooking. Place a salt shaker on the table and allow each person to add his or her own salt to taste. ? Use vegetable protein, such as beans, textured vegetable protein (TVP), or tofu, instead of meat in pasta, casseroles, and soups. Meal planning ? Eat less salt, if told by your dietitian. To do this: ? Avoid eating processed or pre-made food. ? Avoid eating fast food. ? Eat less animal protein, including cheese, meat, poultry, or fish, if told by your dietitian. To do this: ? Limit the number of times you have meat, poultry, fish, or cheese each week. Eat a diet free of meat at least 2 days a week. ? Eat only one serving each day of meat, poultry, fish, or seafood. ? When you prepare animal protein, cut pieces into small portion sizes. For most meat and fish, one serving is about the size of the palm of your hand. ? Eat at least five servings of fresh fruits and vegetables each day. To do this: ? Keep fruits and vegetables on hand for snacks. ? Eat one piece of fruit or a handful of b (more content not included)... [facility] Consent for Procedure/Surger yon 03-20-2023 Consent for Procedure/Surgery [id number] .00CD:[address] [facility] Patient Educationon 03-20-20 23 Patient Education Nephrology Dietary Guidelines to Help Prevent Kidney Stones Kidney stones are deposits of minerals and salts that form inside your kidneys. Your risk of developing kidney stones may be greater depending on your diet, your lifestyle, the medicines you take, and whether you have certain medical conditions. Most people can lower their chances of developing kidney stones by following the instructions below. Your dietitian may give you more specific instructions depending on your overall health and the type of kidney stones you tend to develop. What are tips for following this plan? Reading food labels ? Choose foods with no salt added or low-salt labels. Limit your salt (sodium) intake to less than 1,500 mg a day. ? Choose foods with calcium for each meal and snack. Try to eat about 300 mg of calcium at each meal. Foods that contain 200?500 mg of calcium a serving include: ? 8 oz (237 mL) of milk, calcium-fortifiednon- dairy milk, and calcium-fortifiedfrui t juice. Calcium-fortified means that calcium has been added to these drinks. ? 8 oz (237 mL) of kefir, yogurt, and soy yogurt. ? 4 oz (114 g) of tofu. ? 1 oz (28 g) of cheese. ? 1 cup (150 g) of dried figs. ? 1 cup (91 g) of cooked broccoli. ? One 3 oz (85 g) can of sardines or mackerel. Most people need 1,000?1,500 mg of calcium a day. Talk to your dietitian about how much calcium is recommended for you. Shopping ? Buy plenty of fresh fruits and vegetables. Most people do not need to avoid fruits and vegetables, even if these foods contain nutrients that may contribute to kidney stones. ? When shopping for convenience foods, choose: ? Whole pieces of fruit. ? Pre-made salads with dressing on the side. ? Low-fat fruit and yogurt smoothies. ? Avoid buying frozen meals or prepared deli foods. These can be high in sodium. ? Look for foods with live cultures, such as yogurt and kefir. ? Choose high-fiber grains, such as whole-wheat breads, oat bran, and wheat cereals. Cooking ? Do not add salt to food when cooking. Place a salt shaker on the table and allow each person to add his or her own salt to taste. ? Use vegetable protein, such as beans, textured vegetable protein (TVP), or tofu, instead of meat in pasta, casseroles, and soups. Meal planning ? Eat less salt, if told by your dietitian. To do this: ? Avoid eating processed or pre-made food. ? Avoid eating fast food. ? Eat less animal protein, including cheese, meat, poultry, or fish, if told by your dietitian. To do this: ? Limit the number of times you have meat, poultry, fish, or cheese each week. Eat a diet free of meat at least 2 days a week. ? Eat only one serving each day of meat, poultry, fish, or seafood. ? When you prepare animal protein, cut pieces into small portion sizes. For most meat and fish, one serving is about the size of the palm of your hand. ? Eat at least five servings of fresh fruits and vegetables each day. To do this: ? Keep fruits and vegetables on hand for snacks. ? Eat one piece of fruit or a handful of berries with breakfast. ? Have a salad and fruit at lunch. ? Have two kinds of vegetables at dinner. ? Limit foods that are high in a substance called oxalate. These include: ? Spinach (cooked), rhubarb, beets, sweet potatoes, and [place] chard. ? Peanuts. ? Potato chips, irish fries, and baked potatoes with skin on. ? Nuts and nut products. ? Chocolate. ? If you regularly take a diuretic medicine, make sure to eat at least 1 or 2 servings of fruits or vegetables that are high in potassium each day. These include: ? Avocado. ? Banana. ? [facility], prune, carrot, or tomato juice. ? Baked potato. ? Cabbage. ? Beans and split peas. Lifestyle ? Drink enough fluid to keep your urine pale yellow. This is the most important thing you can do. Spread your fluid intake throughout the day. ? If you drink alcohol: ? Limit how much you use to: ? 0?1 drink a day for women who are not . ? 0?2 drinks a day for men. ? Be aware of how much alcohol is in your drink. In the [place] one drink equals one 12 oz bottle of beer (355 mL), one 5 oz glass of wine (148 mL), or one 1? oz glass of hard liquor (44 mL). ? Lose weight if told by your health care provider. Work with your dietitian to find an eating plan and weight loss strategies that work best for you. General information ? Talk to your health care provider and dietitian about taking daily supplements. You may be told the following depending on your health and the cause of your kidney stones: ? Not to take supplements with vitamin C. ? To take a calcium supplement. ? To take a daily probiotic supplement. ? To take other supplements such as magnesium, fish oil, or vitamin B6. ? Take rhlu-rui-jrrtrpx and prescription medicines only as told by your health care provider. These include supplements. What foods should I limit? Limit your in (more content not included)... [facility] Urology Office/Clinic Noteon 03-20-2023 Urology Office/Clinic Note Chief Complaint Review Metabolic Work Up HPI Staff Pt last seen in our office 08/20/21 due to Kidney Stone & Microscopic Hematuria. Plan was to follow up in 1yr w/KUB. Hospital Consult was done 08/23/22 due to 1.4cm Lt ureteral stone w/hydronephrosis. Cysto/Lt RG/Lt Ureteral Stent placed at that time. Pt then underwent Cysto/Holmium Laser/Lt stent removal 09/19/22. KUB done 12/15/22 Metabolic Work Up done 12/16/22 Pt is here today to review results. Pt unable to provide urine specimen at this time. Decreased frequency since starting new medication from PCP, started 1 month ago, for Bipolar Tx, believes it makes her dehydrated. Denies pain/burning and blood in urine. 03/06/23 started having intermittent Lt kidney pain. Did got to the [place] ER. DX'd & treated for UTI. (NEG C&S at that time.) Amoxicillin therapy given. 03/06/23 CT w/o did show non obstructing stones. History of Present Illness Tests reviewed: reviewed metabolic workup. I have reviewed the previous health record information and history for this patient from Dr. Moore. I have reviewed and verified the staff HPI to be accurate for this encounter. There have been no associated fever, chills, flank pain, or blood in the urine. Denies any urinary infections since last encounter. Review of Systems PHQ Score Initial Depression Screen Score: 0 ROS - Provider Constitutional: denies weight loss, denies hot flashes. Eyes: denies eye problems. Gastrointestinal: denies nausea, denies vomiting. Cardiovascular: denies chest pain or angina. Integumentary: no dryness Musculoskeletal: denies musculoskeletal symptoms. ENMT: denies otolaryngeal symptoms. Respiratory: no shortness of breath. Heme/Lymph: denies easy bleeding tendency, denies easy bruising tendency. Psychiatric: no confusion, no anxiety. Genitourinary: See HPI. Physical Exam Vitals & Measurements HR: 80(Peripheral) RR: 16 BP: 128/73 HT: 66 in HT: 168 cm WT: 95 kg WT: 209 lb BMI: 33.66 General Appearance: alert , no acute distress, well nourished, well developed female. Genitourinary: bladder nonpalpable, no flank pain. Assessment/Plan Prior DLS pt. 1. Kidney stone (N20.0: Calculus of kidney) KUB 12/15/22 - Stable 7 mm stone R inferior pole. No stones on L. Metabolic workup 12/16/22 - U Ca 29.5 H. Volume 1000 L. Ox slightly elevated. Pt presented to [facility] ER on 03/06/23 due to L kidney pain. DX'd & treated with Amoxicillin for UTI. C&S was neg. CT AP wo con 03/06/23 - No hydro. Multiple L renal stones. Nonspecific calcification in the cortex of the lower R kidney. Pt unable to provide urine specimen today. Reviewed KUB with pt. Pt states stone has been present for a long time and was larger at one point. Recommended prophylactic R ESWL due to size. Recommended pt to increase fluid intake to ten to twelve 16 oz bottles a day, preferably water, clear pop, and sugar free lemonade. Stopped drinking soda 2 mos ago. -Will schedule R ESWL. The procedure risks, benefits, details and treatment alternatives have been discussed with the patient. These include blood in the urine, infection, bleeding around the kidney, kidney bruising, inability to break up the stone, need for blood transfusion, blockage from stone fragments, and need for additional procedures, among others. Full informed consent has been obtained. Will order General anesthesia. -Increase fluid intake. 2. Hypercalciuria (R82.994: Hypercalciuria) Metabolic workup 12/16/22 - U Ca 29.5 H. Volume 1000 L. K 4.0 wnl. U Na 193 H. U 24 Ox 44 H. Reviewed metabolic workup findings with pt. Hx of low K during . Recent K level wnl. More minor stone causes Na and oxalates. Educated pt on dietary modifications for low oxalate and Na. Educational pamphlet provided. -Start HCTZ 12.5 mg qd. SEs discussed. Rx sent to [facility]. -Electrolyte panel 4 weeks to the day after starting med. Pt to call for results once completed. 3. History of kidney stones (Z87.442: Personal history of urinary calculi) Hospital Consult 08/23/22 due to 1.4 cm Lt ureteral stone w/hydronephrosis. Cysto/Lt RG/Lt Ureteral Stent placed at that time. Pt then underwent Cysto/Holmium Laser/Lt stent removal 09/19/22. 4. Hyperoxaluria (R82.992: Hyperoxaluria) See #2. Follow-up With When Contact Information Caesar VILLA MD, [facility] [address] [place] [address]- Additional Instructions: schedule R ESWL Patient Education I, Whitney Collier, personally scribed for Dr. Villa on 03/20/2023 11:28:22. . Documentation recorded by the scribe, Whitney Collier, accurately reflects the services(s) I performed and decisions made by me. Authenticated by Dr. Villa on 03/20/2023 11:30:43. Problem List/Past Medical History Ongoing Bipolar disorder BMI 33.0-33.9,adult Dysuria Feeling of incomplete bladder emptying Flank pain Frequency of urination History of kidney s (more content not included)... Normal [facility] Comment on above: Result Comment: Elec tronically Signed By: Caesar VLILA MD\.br\Date and Time Signed: 03/20/23 11:30 EDT\.br\Electronically Co-Signed By: Whitney Collier\.br\Date and Time Co-Signed: 03/20/23 11:28 EDT CBC AUTO DIFFon 02-16-2023 BASO # 0.1 103/ul Normal 0.0-0.1 [facility] Comment on above: Performed By: #### U KJ 24 #### [facility] [place] [facility] [address] [address] [address] Ramses Dumas Basophils/100 WBC (Bld) 0.5 % Normal 0.2-2.0 [facility] [place] [facility] Comment on above: Performed By: #### U KJ 24 #### [facility] [place] [facility] [address] [address] [address] Ramses Dumas EO # 0.0 103/ul Normal 0.0-0.7 [facility] Comment on above: Performed By: #### U KJ 24 #### [facility] [place] [facility] [address] [address] [address] Ramses Dumas Eosinophils/100 WBC (Bld) 0.4 % Critically low 0.9-7.0 [facility] Comment on above: Performed By: #### U KJ 24 #### [facility] [place] [facility] [address] [place] [address] Dr. Ramses Dumas Erythrocyte distribution width (RBC) [Ratio] 13.7 % Normal 11.0-15.0 [facility] Comment on above: Performed By: #### U KJ 24 #### [facility] [place] [facility] [address] [place] [address] Dr. Ramses Dumas Hematocrit (Bld) [Volume fraction] 45.1 % Normal 36.0-48.0 [facility] Comment on above: Performed By: #### U KJ 24 #### [facility] [place] [facility] [address] [place] [address] Dr. Ramses Dumas Hemoglobin (Bld) [Mass/Vol] 14.3 g/dL Normal 12.0-16.0 [facility] Comment on above: Performed By: #### U KJ 24 #### [facility] [place] [facility] [address] [place] [address] Dr. Rmases Dumas IG # 0.02 10e3/ul Normal 0.00-0.03 [facility] Comment on above: Performed By: #### U KJ 24 #### [facility] [place] [facility] [address] [place] [address] Dr. Ramses Dumas IG % 0.2 % Normal 0.0-0.5 [facility] Comment on above: Performed By: #### U KJ 24 #### [facility] [place] [facility] [address] [place] [address] Dr. Ramses Dumas LYMPH # 2.5 103/ul Normal 1.2-3.8 [facility] Comment on above: Performed By: #### U KJ 24 #### [facility] [place] [facility] [address] [place] [address] Dr. Ramses Dumas Lymphocytes/100 WBC (Bld) 26.4 % Normal 20.5-60.0 [facility] Comment on above: Performed By: #### U KJ 24 #### [facility] [place] [facility] [address] [place] [address] Dr. Ramses Dumas MANUAL DIFF REQ NO Normal [facility] Comment on above: Performed By: #### U KJ 24 #### [facility] [place] [facility] [address] [address] [address] Ramses Dumas MCH (RBC) [Entitic mass] 25.6 pg Critically low 26.7-34.0 [facility] Comment on above: Performed By: #### U KJ 24 #### [facility] [place] [facility] [address] [place] [address] Dr. Ramses Dumas MCHC (RBC) [Mass/Vol] 31.7 g/dL Normal 29.9-35.2 [facility] Comment on above: Performed By: #### U KJ 24 #### [facility] [place] [facility] [address] [place] [address] Dr. Ramses Dumas MCV (RBC) [Entitic vol] 80.7 fL Critically low 81.0-99.0 [facility] Comment on above: Performed By: #### U KJ 24 #### [facility] [place] [facility] [address] [place] [address] Dr. Ramses Dumas MONO # 0.7 103/ul Normal 0.3-0.8 [facility] Comment on above: Performed By: #### U KJ 24 #### [facility] [place] [facility] [address] [place] [address] Dr. Ramses Dumas Monocytes/100 WBC (Bld) 7.6 % Normal 1.7-12.0 [facility] Comment on above: Performed By: #### U KJ 24 #### [facility] [place] [facility] [address] [place] [address] Dr. Ramses Dumas NEUT # 6.1 103/ul Normal 1.4-6.5 [facility] Comment on above: Performed By: #### U KJ 24 #### [facility] [place] [facility] [address] [place] [address] Dr. Ramses Dumas Neutrophils/100 WBC (Bld) 64.9 % Normal 43.0-75.0 [facility] Comment on above: Performed By: #### U KJ 24 #### [facility] [place] [facility] [address] [place] [address] Dr. Ramses Dumas Platelet mean volume (Bld) [Entitic vol] 11.0 fL Normal 9.5-13.5 [facility] Comment on above: Performed By: #### U KJ 24 #### [facility] [place] [facility] [address] [address] [address] Ramses Dumas PLT 270 103/ul Normal 150-450 [facility] [place] [facility] Comment on above: Performed By: #### U KJ 24 #### [facility] [place] [facility] [address] [place], [place] [address] Dr. Ramses Dumas RBC 5.59 106/ul Critically high 4.20-5.40 [facility] Comment on above: Performed By: #### U KJ 24 #### [facility] [place] [facility] [address] [place], [place] [address] Dr. Ramses Dumas WBC 9.4 103/ul Normal 4.0-11.0 [facility] Comment on above: Performed By: #### U KJ 24 #### [facility] [place] [facility] [address] [place], [place] [id number] Dr. Ramses Dumas CT ABD/PELV W CONon 02-17-[address] ABD/PELV W CON EXAM: CT ABD/PELV W CON TECHNIQUE: Axial CT images were obtained of the abdomen and pelvis with intravenous contrast. Sagittal and coronal reformatted images were also obtained. Dose reduction techniques were achieved by using automated exposure control and/or adjustment of mA and/or kV according to patient size and/or use of iterative reconstruction technique. HISTORY: GENERALIZED ABDOMINAL PAIN COMPARISON: 08/28/2022 _ FINDINGS: Lower chest: The lower lungs are clear. Liver: Diffuse decreased attenuation of liver consistent with steatosis. Gallbladder: Status post cholecystectomy. No significant biliary dilatation. Pancreas: The pancreas is homogeneous without evidence for mass lesion or inflammation. Spleen: The spleen is unremarkable without evidence for mass lesion. Adrenal glands: The adrenal glands are unremarkable Kidneys and bladder: Multifocal chronic cortical scarring throughout the left kidney. 6 mm coarse calcification of lower pole right kidney. Small benign cyst of the lower pole right kidney. The ureters demonstrate normal caliber. The urinary bladder is unremarkable. GI Tract: Stomach is unremarkable. Visualized small bowel is unremarkable without evidence for obstruction or active inflammation. The appendix is unremarkable.The visualized portion of the large bowel is unremarkable. Reproductive: Unremarkable Lymph nodes: No retroperitoneal or abdominal lymphadenopathy. Vascular: The aorta is not dilated. Mesenteric vessels are patent. Peritoneum: No free intraperitoneal air or fluid. No acute inflammation. Abdominal wall: Small fat-containing umbilical hernia. ____ IMPRESSION: No acute abdominal pathology. No acute inflammatory process. No obstructing urinary tract stone. No evidence for bowel obstruction. Electronically authenticated by: FARTUN NOVOA Date: 2023-02-16 18:21 Normal [facility] ER URINE PROFILEon 3 Bilirubin Ql (U) SMALL Abnormal NEGATIVE [facility] Comment on above: Performed By: #### C MP #### [facility] [place] [facility] [address] [place] [address] Dr. Ramses Dumas Clarity (U) CLEAR Normal CLEAR [facility] Comment on above: Performed By: #### C MP #### [facility] [place] [facility] [address] [place] [address] Dr. Ramses Dumas Color (U) YELLOW Normal YELLOW [facility] Comment on above: Performed By: #### C MP #### [facility] [place] [facility] [address] [place] [address] Dr. Ramses Dumas ERUCARLOS ENRIQUE A micrscopic examination will be performed if indicated. Normal [facility] Comment on above: Performed By: #### C MP #### [facility] [place] [facility] [address] [place] [address] Dr. Ramses Dumas Glucose Ql (U) Negative Normal NEGATIVE [facility] Comment on above: Performed By: #### C MP #### [facility] [place] [facility] [address] [place] [address] Dr. Ramses Dumas Hemoglobin Ql (U) Negative Normal NEGATIVE [facility] Comment on above: Performed By: #### C MP #### [facility] [place] [facility] [address] [place] [address] Dr. Ramses Dmuas Ketones Ql (U) 40 mg/dl Abnormal NEGATIVE [facility] Comment on above: Performed By: #### C MP #### [facility] [place] [facility] [address] [place] [address] Dr. Ramses Dumas LEUKOCYTES SMALL Abnormal NEGATIVE [facility] Comment on above: Performed By: #### C MP #### [facility] [place] [facility] [address] [place] [address] Dr. Ramses Dumas Nitrite Ql (U) Negative Normal NEGATIVE [facility] Comment on above: Performed By: #### C MP #### [facility] [place] [facility] [address] [place] [address] Dr. Ramses Dumas pH (U) 7.0 [pH] Normal 5-9 [facility] Comment on above: Performed By: #### C MP #### [facility] [place] [facility] [address] [place] [address] Dr. Ramses Dumas Protein (U) [Mass/Vol] 30 mg/dL Abnormal NEGAT CHRIS/ TRACE [facility] Comment on above: Performed By: #### C MP #### [facility] [place] [facility] [address] [place] [address] Dr. Ramses Dumas SPEC GRAVITY 1.020 Normal 1.005-<=1.02 5 [facility] Comment on above: Performed By: #### C MP #### [facility] [place] [facility] [address] [place] [address] Dr. Ramses Dumas UR MICRO IND INDICATED Normal [facility] Comment on above: Performed By: #### C MP #### [facility] [place] [facility] [address] [place] [address] Dr. Ramses Dumas Urobilinogen Qn (U) 4 {Lucero'U}/dL Abnormal 0.2 - 1.0 [facility] Comment on above: Performed By: #### C MP #### [facility] [place] [facility] [address] [place] [address] Dr. Ramses Dumas LIPASEon 02-16-2023 Lipase [Catalytic activity/Vol] 67.0 U/L Critically low 73.0-393.0 [facility] Comment on above: Performed By: #### U RCX #### [facility] [place] [facility] [address] [place] [address] Dr. Ramses Dumas LIVER PROFILEon 02-16-2023 Albumin [Mass/Vol] 4.1 g/dL Normal 3.4-5.0 [facility] Comment on above: Performed By: #### U RCX #### [facility] [place] [facility] [address] [address] [address] Ramses Dumas Albumin/Globulin [Mass ratio] 1.0 {ratio} Normal [facility] Comment on above: Performed By: #### U RCX #### [facility] [place] [facility] [address] [address] [address] Ramses Dumas ALP [Catalytic activity/Vol] 85 U/L Normal 46-116 [facility] Comment on above: Performed By: #### U RCX #### [facility] [place] [facility] [address] [address] [address] Ramses Dumas ALT [Catalytic activity/Vol] 61 U/L Critically high 14-59 [facility] Comment on above: Performed By: #### U RCX #### [facility] [place] [facility] [address] [place] [address] Dr. Ramses Dumas AST [Catalytic activity/Vol] 43 U/L Critically high 15-37 [facility] Comment on above: Performed By: #### U RCX #### [facility] [place] [facility] [address] [address] [address] Ramses Dumas BILI, CONJUGATED 0.1 mg/dL Normal 0.0-0.2 [facility] Comment on above: Performed By: #### U RCX #### [facility] [place] [facility] [address] [address] [address] Ramses Dumas Bilirubin [Mass/Vol] 0.7 mg/dL Normal 0.2-1.0 [facility] Comment on above: Performed By: #### U RCX #### [facility] [place] [facility] [address] [address] [address] Ramses Dumas Globulin (S) [Mass/Vol] 4.2 g/dL Normal [facility] Comment on above: Performed By: #### U RCX #### [facility] [place] [facility] [address] [address] [address] Ramses Dumas Protein [Mass/Vol] 8.3 g/dL Critically high 6.4-8.2 [facility] Comment on above: Performed By: #### U RCX #### [facility] [place] [facility] [address] [address] [address] Ramses Dumas URon 02-16-2023 , QUAL Negative Normal NEGATIVE [facility] Comment on above: Performed By: #### C MP #### [facility] [place] [facility] [address] [address] [address] Ramses Dumas PROF CHEM 8 (BAS METB)on Anion gap [Moles/Vol] 14.2 mmol/L Normal [facility] Comment on above: Performed By: #### U RCX #### [facility] [place] [facility] [address] [address] [address] Ramses Dumas Calcium [Mass/Vol] 9.5 mg/dL Normal 8.5-10.1 [facility] Comment on above: Performed By: #### U RCX #### [facility] [place] [facility] [address] [address] [address] Ramses Dumas Chloride [Moles/Vol] 102 mmol/L Normal 98-107 [facility] Comment on above: Performed By: #### U RCX #### [facility] [place] [facility] [address] [address] [address] Ramses Dumas CO2 [Moles/Vol] 27.5 mmol/L Normal 21.0-32.0 [facility] Comment on above: Performed By: #### U RCX #### [facility] [place] [facility] [address] [address] [address] Ramses Dumas Creatinine [Mass/Vol] 0.71 mg/dL Normal 0.55-1.02 [facility] Comment on above: Performed By: #### U RCX #### [facility] [place] [facility] [address] [address] [address] Ramses Dumas EGFR-AF SRI LANKAN >60 Normal >=60 [facility] Comment on above: Performed By: #### U RCX #### [facility] [place] [facility] [address] [address] [address] Ramses Dumas EGFR-NON AF SRI LANKAN >60 Normal >=60 [facility] Comment on above: Performed By: #### U RCX #### [facility] [place] [facility] [address] [address] [address] Ramses Dumas Glucose [Mass/Vol] 90 mg/dL Normal 74-106 [facility] Comment on above: Performed By: #### U RCX #### [facility] [place] [facility] [address] [address] [address] Ramses Dumas Potassium [Moles/Vol] 3.7 mmol/L Normal 3.5-5.1 [facility] Comment on above: Performed By: #### U RCX #### [facility] [place] [facility] [address] [address] [address] Ramses Dumas Sodium [Moles/Vol] 140 mmol/L Normal 136-145 [facility] Comment on above: Performed By: #### U RCX #### [facility] [place] [facility] [address] [place] [address] Dr. Ramses Dumas Urea nitrogen [Mass/Vol] 6.0 mg/dL Critically low 7.0-18.0 [facility] Comment on above: Performed By: #### U RCX #### [facility] [place] [facility] [address] [place] [address] Dr. Ramses Dumas Urea nitrogen/Creatinine [Mass ratio] 8.5 mg/mg Normal [facility] Comment on above: Performed By: #### U RCX #### [facility] [place] [facility] [address] [place] [address] Dr. Ramses Dumas URINE MICROSCOPIC ONLYon BACTERIA NONE SEEN Normal NONE SEEN [facility] Comment on above: Performed By: #### U KJ 24 #### [facility] [place] [facility] [address] [place] [address] Dr. Ramses Dumas Bacteria identified Cx Nom (U) NOT INDICATED Normal [facility] [place] [facility] Comment on above: Performed By: #### U KJ 24 #### [facility] [place] [facility] [address] [place] [address] Dr. Ramses Dumas CAST NONE SEEN Normal NONE SEEN [facility] Comment on above: Performed By: #### U KJ 24 #### [facility] [place] [facility] [address] [place] [address] Dr. Ramses Dumas Crystals LM Nom (Urine sed) NONE SEEN Normal NONE SEEN [facility] [place] [facility] Comment on above: Performed By: #### U KJ 24 #### [facility] [place] [facility] [address] [place] [address] Dr. Ramses Dumas Epithelial cells LM Ql (Urine sed) FEW Abnormal NONE SEEN /RARE [facility] [place] [facility] Comment on above: Performed By: #### U KJ 24 #### [facility] [place] [facility] [address] [place] [address] Dr. Ramses Dumas MUCOUS SMALL Abnormal NONE SEEN [facility] [place] [facility] Comment on above: Performed By: #### U KJ 24 #### [facility] [place] [facility] [address] [place] [address] Dr. Ramses Dumas RBC NONE SEEN Abnormal 0-2 [facility] [place] [facility] Comment on above: Performed By: #### U KJ 24 #### [facility] [place] [facility] [address] [place] [address] Dr. Ramses Dumas WBC 0-2 Abnormal NONE SEEN [facility] [place] [facility] Comment on above: Performed By: #### U KJ 24 #### [facility] [place] [facility] [address] [place] [address] Dr. Ramses Dumas PAP ACOG PANEL 2: 30 to 65on 02-10-2023 . . Normal [facility] Comment on above: Result Comment: Perf ormed at: WB Performed By: #### U RCX #### [facility] [place] [facility] [address] [place] [address] Dr. Ramses Dumas Age Gdln ACOG Testing 30-65 Normal [facility] Comment on above: Performed By: #### U RCX #### [facility] [place] [facility] [address] [place] [address] Dr. Ramses Dumas DIAGNOSIS: Comment Normal [facility] Comment on above: Result Comment: NEGA TIVE FOR INTRAEPITHELIAL LESION OR MALIGNANCY. REACTIVE CELLULAR CHANGES AND/OR REPAIR ARE PRESENT. Performed at: WB Performed By: #### U RCX #### [facility] [place] [facility] [address] [place] [address] Dr. Ramses Dumas Electronically signed by: Comment Normal [facility] Comment on above: Result Comment: Chelsey Boston MD, Pathologist Performed at: WB Performed By: #### U RCX #### [facility] [place] [facility] [address] [address] [address] Ramses Dumas HPV Aptima Negative Normal Negative [facility] Comment on above: Result Comment: This nucleic acid amplification test detects fourteen high-risk HPV types (16,18,31,33,35,39,45,51,52,56,58,59,66,68) without differentiation. Performed at: =G Performed By: #### U RCX #### [facility] [place] [facility] [address] [address] [address] Ramses Dumas HPV Genotype Reflex Comment Normal [facility] Comment on above: Result Comment: Crit eria not met, HPV Genotype not performed. Performed at: WB Performed By: #### U RCX #### [facility] [place] [facility] [address] [address] [address] Ramses Dumas Methodology: Comment Normal [facility] Comment on above: Result Comment: This liquid based ThinPrep(R) pap test was screened with the use of an image guided system. Performed at: WB Performed By: #### U RCX #### [facility] [place] [facility] [address] [address] [address] Ramses Dumas Note: Comment Normal [facility] Comment on above: Result Comment: The Pap smear is a screening test designed to aid in the detection of premalignant and malignant conditions of the uterine cervix. It is not a diagnostic procedure and should not be used as the sole means of detecting cervical cancer. Both false-positive and false-negative reports do occur. . Performed at: WB Performed By: #### U RCX #### [facility] [place] [facility] [address] [address] [address] Ramses Dumas Performed by: Comment Normal [facility] Comment on above: Result Comment: Cuca Briceno, Terminologist (ASCP) Performed at: WB Performed By: #### U RCX #### [facility] [place] [facility] [address] [address] [address] Ramses Dumas Specimen adequacy: Comment Normal [facility] Comment on above: Result Comment: Sati sfactory for evaluation. Endocervical and/or squamous metaplastic cells (endocervical component) are present. Performed at: WB Performed By: #### U RCX #### [facility] [place] [facility] [address] [address] [address] Ramses Dumas Lab Reportson 12-29-2022 Lab Reports [id number]:127 Normal [facility] RAD - MISCon 12-21-2022 RAD - MISC [id number] .[id number]:127 Normal [facility] OXALATE 24HR URINEon 023 Oxalates, Urine 44 mg/L Normal Undefined [facility] Comment on above: Performed By: #### U KJ 24 #### [facility] [place] [facility] [address] [place] [address] Dr. Ramses Dumas Oxalates, Urine 24hr 44 mg/24 hr Critically high 4-31 [facility] Comment on above: Performed By: #### U KJ 24 #### [facility] [place] [facility] [address] [place] [address] Dr. Ramses Dumas CITRATE URINE 24HRon 023 Citric Acid, U, 24hr 658 mg/24 hr Normal 320-1240 [facility] Comment on above: Result Comment: This test was developed and its performance characteristics determined by [facility]. It has not been cleared or approved by the Food and Drug Administration. Performed By: #### C ITRATU #### [facility] [place] [facility] [address] [place] [address] Dr. Ramses Dumas Citric Acid, Urine 658 mg/L Normal Undefined [facility] Comment on above: Performed By: #### C ITRATU #### [facility] [place] [facility] [address] [place] [address] Dr. Ramses Dumas MAGNESIUM 24HR URINEon 12-17 Magnesium 24hr Urine 119.0 mg/24 hr Normal 12.0-293.0 [facility] Comment on above: Performed By: #### U RCX #### [facility] [place] [facility] [address] [place] [address] Dr. Ramses Dumas Magnesium UR 11.9 mg/dL Normal Not Estab. [facility] [place] [facility] Comment on above: Performed By: #### U RCX #### [facility] [place] [facility] [address] [place], [place] [id number] Dr. Ramses Dumas PHOSPHORUS 24HR URINEon Phosphorus, Urine 81.4 mg/dL Normal Not Estab. [facility] Comment on above: Performed By: #### B LDCX2 #### [facility] [place] [facility] [id number] Ramses Dumas Phosphorus, Urine 24hr 814 mg/24 hr Normal 261-1078 [facility] Comment on above: Performed By: #### B LDCX2 #### [facility] [place] [facility] [address] [place], [place] [id number] Dr. Ramses Dumas PTH INTACTon 12-17-2022 PTH, Intact 46 pg/mL Normal 15-65 [facility] Comment on above: Performed By: #### U RCX #### [facility] [place] [facility] [address] [place] [address] Dr. Ramses Dumas URIC ACID 24 HR URINEon Uric Acid, Urine 69.9 mg/dL Normal Not Estab. [facility] Comment on above: Performed By: #### U KJ 24 #### [facility] [place] [facility] [address] [place], [place] [id number] Dr. Ramses Dumas Uric Acid, Urine 24hr 699.0 mg/24 hr Normal 173.7-902. 1 [facility] [place] [facility] Comment on above: Performed By: #### U KJ 24 #### [facility] [place] [facility] [address] [place], [place] [id number] Dr. Ramses Dumas BUNon 12-16-2022 Urea nitrogen [Mass/Vol] 7.0 mg/dL Normal 7.0-18.0 [facility] Comment on above: Performed By: #### C BC #### [facility] [place] [facility] [address] [place] [address] Ramses Dumas CALCIUMon 12-16-2022 Calcium [Mass/Vol] 8.8 mg/dL Normal 8.5-10.1 [facility] Comment on above: Performed By: #### C BC #### [facility] [place] [facility] [address] [place] [address] Dr. Ramses Dumas CALCIUM 24 HR URINEon 2022 CALC, 24 HR UR 295.0 mg/24 hr Normal 100.0-300.0 [facility] Comment on above: Performed By: #### B LDCX2 #### [facility] [place] [facility] [address] [place] [address] Dr. Ramses Dumas UR CALCIUM 29.5 mg/dL Critically high 5.1-21.0 [facility] Comment on above: Performed By: #### B LDCX2 #### [facility] [place] [facility] [address] [place] [address] Dr. Ramses Dumas CHLORIDEon 12-16-2022 Chloride [Moles/Vol] 105 mmol/L Normal 98-107 [facility] Comment on above: Performed By: #### C BC #### [facility] [place] [facility] [address] [place] [address] Dr. Ramses Dumas CO2on 12-16-2022 CO2 [Moles/Vol] 26.4 mmol/L Normal 21.0-32.0 [facility] Comment on above: Performed By: #### C MP #### [facility] [place] [facility] [address] [place] [address] Dr. Ramses Dumas CREA 24 HR URINEon 3 CREA, 24 HR UR 2337.30 mg/24 hr Critically high 800.00 -1,800 .00 [facility] Comment on above: Performed By: #### C VDTBH #### [facility] [place] [facility] [address] [place] [address] Dr. Ramses Dumas URINE CREAT 233.73 mg/dL Normal 20.00-300.00 [facility] Comment on above: Performed By: #### C VDTBH #### [facility] [place] [facility] [address] [place] [address] Dr. Ramses Dumas CREATININEon 12-16-2022 Creatinine [Mass/Vol] 0.70 mg/dL Normal 0.55-1.02 [facility] Comment on above: Performed By: #### C MP #### [facility] [place] [facility] [address] [place] [address] Dr. Ramses Dumas EGFR-AF SRI LANKAN >60 Normal >=60 [facility] Comment on above: Performed By: #### C MP #### [facility] [place] [facility] [address] [place] [address] Dr. Ramses Dumas EGFR-NON AF SRI LANKAN >60 Normal >=60 [facility] Comment on above: Performed By: #### C MP #### [facility] [place] [facility] [address] [place] [address] Dr. Ramses Dumas NAon 12-16-2022 Sodium [Moles/Vol] 139 mmol/L Normal 136-145 [facility] Comment on above: Performed By: #### C MP #### [facility] [place] [facility] [address] [place] [address] Dr. Ramses Dumas POTASSIUMon 12-16-2022 Potassium [Moles/Vol] 4.0 mmol/L Normal 3.5-5.1 [facility] Comment on above: Performed By: #### C MP #### [facility] [place] [facility] [address] [place] [address] Dr. Ramses Dumas SODIUM 24 HR URINEon 023 NA, 24 HR UR 193 mmol/24 hr Normal 40-220 [facility] Comment on above: Performed By: #### C VDTBH #### [facility] [place] [facility] [address] [place] [address] Dr. Ramses Dumas Sodium (U) [Moles/Vol] 193 mmol/L Critically high 30-90 [facility] Comment on above: Performed By: #### C VDTBH #### [facility] [place] [facility] [address] [place] [address] Dr. Ramses Dumas UR TOT VOL 1000 ml/24 HR Normal [facility] Comment on above: Performed By: #### C VDTBH #### [facility] [place] [facility] [address] [place] [address] Dr. Ramses Dumas Performed By: #### B LDCX2 #### [facility] [place] [facility] [address] [place] [address] Dr. Ramses Dumas URIC ACID SERUMon 12-16-2022 Urate [Mass/Vol] 5.6 mg/dL Normal 2.6-6.0 [facility] Comment on above: Performed By: #### C MP #### [facility] [place] [facility] [address] [place] [address] Dr. Ramses Dumas XR KUB 1 VIEWon 12-15-2022 XR KUB 1 VIEW EXAMINATION: XR KUB 1 VIEW HISTORY: Kidney stone follow-up COMPARISON: CT abdomen pelvis 08/28/2023, XR KUB 08/07/2021 FINDINGS: KIDNEY/URETER - RIGHT: Stable 7 mm stone within inferior pole cortex. KIDNEY/URETER - LEFT: No visible renal or ureteral calcifications. PELVIS: No visible ureteral stones. BOWEL: No abnormal dilation or deviation. BONES: No acute abnormality. OTHER: Negative. No abnormal gaseous collections. IMPRESSION: 1. Stable right nephrolithiasis. 2. Left ureteral stent has been removed. Electronically authenticated by: JENNIFER GATES Date: 2022-12-15 08:26 Normal [facility] [place] [facility] CBC AUTO DIFFon 11-07-2022 BASO # 0.0 103/ul Normal 0.0-0.1 [facility] Comment on above: Performed By: #### U RCX #### [facility] [place] [facility] [address] [place] [address] Dr. Ramses Dumas Basophils/100 WBC (Bld) 0.7 % Normal 0.2-2.0 [facility] [place] [facility] Comment on above: Performed By: #### U RCX #### [facility] [place] [facility] [address] [place] [address] Dr. Ramses Dumas EO # 0.1 103/ul Normal 0.0-0.7 [facility] [place] [facility] Comment on above: Performed By: #### U RCX #### [facility] [place] [facility] [address] [address] [address] Ramses Dumas Eosinophils/100 WBC (Bld) 1.9 % Normal 0.9-7.0 [facility] [place] [facility] Comment on above: Performed By: #### U RCX #### [facility] [place] [facility] [address] [place] [address] Dr. Ramses Dumas Erythrocyte distribution width (RBC) [Ratio] 13.6 % Normal 11.0-15.0 [facility] Comment on above: Performed By: #### U RCX #### [facility] [place] [facility] [address] [place] [address] Dr. Ramses Dumas Hematocrit (Bld) [Volume fraction] 37.3 % Normal 36.0-48.0 [facility] Comment on above: Performed By: #### U RCX #### [facility] [place] [facility] [address] [place] [address] Dr. Ramses Dumas Hemoglobin (Bld) [Mass/Vol] 12.2 g/dL Normal 12.0-16.0 [facility] Comment on above: Performed By: #### U RCX #### [facility] [place] [facility] [address] [place] [address] Dr. Ramses Dumas IG # 0.02 10e3/ul Normal 0.00-0.03 [facility] Comment on above: Performed By: #### U RCX #### [facility] [place] [facility] [address] [place] [address] Dr. Ramses Dumas IG % 0.3 % Normal 0.0-0.5 [facility] Comment on above: Performed By: #### U RCX #### [facility] [place] [facility] [address] [place] [address] Dr. Ramses Dumas LYMPH # 2.3 103/ul Normal 1.2-3.8 [facility] Comment on above: Performed By: #### U RCX #### [facility] [place] [facility] [address] [place] [address] Dr. Ramses Dumas Lymphocytes/100 WBC (Bld) 39.6 % Normal 20.5-60.0 [facility] Comment on above: Performed By: #### U RCX #### [facility] [place] [facility] [address] [place] [address] Dr. Ramses Dumas MANUAL DIFF REQ NO Normal [facility] Comment on above: Performed By: #### U RCX #### [facility] [place] [facility] [address] [place] [address] Dr. Ramses Dumas MCH (RBC) [Entitic mass] 26.4 pg Critically low 26.7-34.0 [facility] Comment on above: Performed By: #### U RCX #### [facility] [place] [facility] [address] [place] [address] Dr. Ramses Dumas MCHC (RBC) [Mass/Vol] 32.7 g/dL Normal 29.9-35.2 [facility] [place] [facility] Comment on above: Performed By: #### U RCX #### [facility] [place] [facility] [address] [place] [address] Dr. Ramses Dumas MCV (RBC) [Entitic vol] 80.7 fL Critically low 81.0-99.0 [facility] Comment on above: Performed By: #### U RCX #### [facility] [place] [facility] [address] [place] [address] Dr. Ramses Dumas MONO # 0.5 103/ul Normal 0.3-0.8 [facility] Comment on above: Performed By: #### U RCX #### [facility] [place] [facility] [address] [place] [address] Dr. Ramses Dumas Monocytes/100 WBC (Bld) 8.0 % Normal 1.7-12.0 [facility] Comment on above: Performed By: #### U RCX #### [facility] [place] [facility] [address] [place] [address] Dr. Ramses Dumas NEUT # 2.9 103/ul Normal 1.4-6.5 [facility] Comment on above: Performed By: #### U RCX #### [facility] [place] [facility] [address] [place] [address] Dr. Ramses Dumas Neutrophils/100 WBC (Bld) 49.5 % Normal 43.0-75.0 [facility] [place] [facility] Comment on above: Performed By: #### U RCX #### [facility] [place] [facility] [address] [place] [address] Dr. Ramses Dumas Platelet mean volume (Bld) [Entitic vol] 9.0 fL Critically low 9.5-13.5 [facility] Comment on above: Performed By: #### U RCX #### [facility] [place] [facility] [address] [place] [address] Dr. Ramses Dumas PLT 337 103/ul Normal 150-450 [facility] Comment on above: Performed By: #### U RCX #### [facility] [place] [facility] [address] [place] [address] Dr. Ramses Dumas RBC 4.62 106/ul Normal 4.20-5.40 [facility] Comment on above: Performed By: #### U RCX #### [facility] [place] [facility] [address] [place] [address] Dr. Ramses Dumas WBC 5.9 103/ul Normal 4.0-11.0 [facility] Comment on above: Performed By: #### U RCX #### [facility] [place] [facility] [address] [place] [address] Dr. Ramses Dumas POINT OF CARE GLUCOSEon 10-20 Glucose [Mass/Vol] 115 mg/dL Critically high 74-106 [facility] Comment on above: Performed By: #### C VDTBH #### [facility] [place] [facility] [address] [place] [address] Dr. Ramses Dumas PREG QUANT HCGon 11-07-2022 HCG QUANT <1 Normal [facility] Comment on above: Performed By: #### C VDTBH #### [facility] [place] [facility] [address] [place] [address] Dr. Ramses Dumas HCG RANGE SEE BELOW Normal [facility] Comment on above: Result Comment: 5-50 0.2-1 WEEK 50-500 1-2 WEEKS 100-5,000 2-3 WEEKS 500-10,000 3-4 WEEKS 1,000-50,000 4-5 WEEKS 10,000-100,000 5-6 WEEKS 15,000-200,000 6-8 WEEKS 10,000-100,000 2-3 MONTHS Performed By: #### C VDTBH #### [facility] [place] [facility] [address] [place] [address] Dr. Ramses Dumas US PELVIS AND TRANSVAGon US PELVIS AND TRANSVAG Begin Addendu m #1 Impression should read: 1.9 cm right ovarian simple cyst Original Report EXAMINATION: US PELVIS AND TRANSVAG HISTORY: Pelvic and perineal pain COMPARISON: 02/04/2021 FINDINGS: The uterus is normal in size and contour measuring 7.8 x 5.3 x 5.2 cm. The uterus is retroflexed. No focal myometrial mass. The endometrium measures 1.2 cm, normal. The right ovary is normal in appearance measuring 4.1 x 1.8 x 2.2 cm. Normal color and Doppler flow. Area of anechoic echogenicity measuring 1.9 x 1.6 x 1.4 cm.. The left ovary is normal in appearance measuring 2.7 x 2.0 x 2.0 cm. Normal color and Doppler flow. Areas of anechoic echogenicity consistent with normal follicles. IMPRESSION: Retroflexed uterus 4.9 cm right ovarian simple cyst Normal [facility] [place] [facility] CBC AUTO DIFFon 11-03-2022 BASO # 0.1 103/ul Normal 0.0-0.1 [facility] Comment on above: Performed By: #### U RCX #### [facility] [place] [facility] [address] [place] [address] Dr. Ramses Dumas Basophils/100 WBC (Bld) 0.8 % Normal 0.2-2.0 [facility] [place] [facility] Comment on above: Performed By: #### U RCX #### [facility] [place] [facility] [address] [place] [address] Dr. Ramses Dumas EO # 0.1 103/ul Normal 0.0-0.7 [facility] [place] [facility] Comment on above: Performed By: #### U RCX #### [facility] [place] [facility] [address] [place] [address] Dr. Ramses Dumas Eosinophils/100 WBC (Bld) 1.4 % Normal 0.9-7.0 [facility] [place] [facility] Comment on above: Performed By: #### U RCX #### [facility] [place] [facility] [address] [place] [address] Dr. Ramses Dumas Erythrocyte distribution width (RBC) [Ratio] 13.4 % Normal 11.0-15.0 [facility] Comment on above: Performed By: #### U RCX #### [facility] [place] [facility] [address] [place] [address] Dr. Ramses Dumas Hematocrit (Bld) [Volume fraction] 38.8 % Normal 36.0-48.0 [facility] Comment on above: Performed By: #### U RCX #### [facility] [place] [facility] [address] [place] [address] Dr. Ramses Dumas Hemoglobin (Bld) [Mass/Vol] 12.7 g/dL Normal 12.0-16.0 [facility] Comment on above: Performed By: #### U RCX #### [facility] [place] [facility] [address] [place] [address] Dr. Ramses Dumas IG # 0.01 10e3/ul Normal 0.00-0.03 [facility] Comment on above: Performed By: #### U RCX #### [facility] [place] [facility] [address] [place] [address] Dr. Ramses Dumas IG % 0.1 % Normal 0.0-0.5 [facility] Comment on above: Performed By: #### U RCX #### [facility] [place] [facility] [address] [place] [address] Dr. Ramses Dumas LYMPH # 1.9 103/ul Normal 1.2-3.8 [facility] Comment on above: Performed By: #### U RCX #### [facility] [place] [facility] [address] [place] [address] Dr. Ramses Dumas Lymphocytes/100 WBC (Bld) 26.4 % Normal 20.5-60.0 [facility] Comment on above: Performed By: #### U RCX #### [facility] [place] [facility] [address] [place] [address] Dr. Ramses Dumas MANUAL DIFF REQ NO Normal [facility] Comment on above: Performed By: #### U RCX #### [facility] [place] [facility] [address] [place] [address] Dr. Ramses Dumas MCH (RBC) [Entitic mass] 26.3 pg Critically low 26.7-34.0 [facility] Comment on above: Performed By: #### U RCX #### [facility] [place] [facility] [address] [place] [address] Dr. Ramses Dumas MCHC (RBC) [Mass/Vol] 32.7 g/dL Normal 29.9-35.2 [facility] Comment on above: Performed By: #### U RCX #### [facility] [place] [facility] [address] [place] [address] Dr. Ramses Dumas MCV (RBC) [Entitic vol] 80.5 fL Critically low 81.0-99.0 [facility] Comment on above: Performed By: #### U RCX #### [facility] [place] [facility] [address] [place] [address] Dr. Ramses Dumas MONO # 0.6 103/ul Normal 0.3-0.8 [facility] Comment on above: Performed By: #### U RCX #### [facility] [place] [facility] [address] [place] [address] Dr. Ramses Dumas Monocytes/100 WBC (Bld) 8.2 % Normal 1.7-12.0 [facility] Comment on above: Performed By: #### U RCX #### [facility] [place] [facility] [address] [place] [address] Dr. Ramses Dumas NEUT # 4.5 103/ul Normal 1.4-6.5 [facility] Comment on above: Performed By: #### U RCX #### [facility] [place] [facility] [address] [place] [address] Dr. Ramses Dumas Neutrophils/100 WBC (Bld) 63.1 % Normal 43.0-75.0 [facility] Comment on above: Performed By: #### U RCX #### [facility] [place] [facility] [address] [place] [address] Dr. Ramses Dumas Platelet mean volume (Bld) [Entitic vol] 8.9 fL Critically low 9.5-13.5 [facility] Comment on above: Performed By: #### U RCX #### [facility] [place] [facility] [address] [place] [address] Dr. Ramses Dumas PLT 340 103/ul Normal 150-450 [facility] [place] [facility] Comment on above: Performed By: #### U RCX #### [facility] [place] [facility] [address] [place] [address] Dr. Ramses Dumas RBC 4.82 106/ul Normal 4.20-5.40 [facility] Comment on above: Performed By: #### U RCX #### [facility] [place] [facility] [address] [place] [address] Dr. Ramses Dumas WBC 7.1 103/ul Normal 4.0-11.0 [facility] Comment on above: Performed By: #### U RCX #### [facility] [place] [facility] [address] [address] [address] Ramses Dumas [facility]19 SARS-CoV-2 (COVID-19) RNA FRANCESCA+probe Ql (Unsp spec) Not detected Normal NOT DETECTED [facility] [place] [facility] Comment on above: Result Comment: This test is not yet approved or cleared by the [place] FDA. When there are no FDA-approved or cleared tests available, and other criteria are met, FDA can make tests available under an emergency access mechanism called an Emergency Use Authorization (EUA). The EUA for this test is supported by the Insurance Billing Specialist of Health and Human Service's (HHS's) declaration that circumstances exist to justify the emergency use of in vitro diagnostics for the detection and/or diagnosis of the virus that causes COVID-19. This EUA will remain in effect (meaning this test can be used) for the duration of the COVID-19 declaration justifying emergency of IVDs, unless it is terminated or revoked by FDA (after which the test may no longer be used). When diagnostic testing is negative, the possibility of a false negative should be considered in the context of a patient's recent exposures and the presence of clinical signs and symptoms consistent with SARS-CoV-2. Performed By: #### U RCX #### [facility] [place] [facility] [address] [place] [address] Dr. Ramses Dumas FREE T4on 11-03-2022 Free T4 [Mass/Vol] 0.99 ng/dL Normal 0.76-1.46 [facility] Comment on above: Performed By: #### B LDCX2 #### [facility] [place] [facility] [address] [place] [address] Dr. Ramses Dumas GLYCOHEMOGLOBIN A1Con 2022 ADA RECOMMENDATION SEE BELOW Normal [facility] Comment on above: Result Comment: ADA RECOMMENDED LIMIT 4.0 - 6.0 ADA THERAPEUTIC TARGET < 7.0 ACTION SUGGESTED > 7.0 Performed By: #### C VDTBH #### [facility] [place] [facility] [address] [place] [address] Dr. Ramses Dumas Glucose [Mass/Vol] 117 mg/dL Normal [facility] Comment on above: Performed By: #### C VDTBH #### [facility] [place] [facility] [address] [place] [address] Dr. Ramses Dumas HbA1c (Bld) [Mass fraction] 5.7 % Normal 4.5-6.2 [facility] Comment on above: Performed By: #### C VDTBH #### [facility] [place] [facility] [address] [place] [address] Dr. Ramses Dumas PROTIMEon 11-03-2022 INR Coag (PPP) [Relative time] 0.97 {INR} Normal [facility] Comment on above: Performed By: #### U KJ 24 #### [facility] [place] [facility] [address] [place] [address] Dr. Ramses Dumas INR GUIDELINES SEE BELOW Normal [facility] Comment on above: Result Comment: TOÑA RED INR: 2.0 - 3.0 CONDITIONS NOT LISTED BELOW 2.5 - 3.5 FOR PROSTHETIC HEART VALVE REPLACEMENT 2.5 - 3.5 RECURRENT THROMBOSIS Performed By: #### U KJ 24 #### [facility] [place] [facility] [address] [place] [address] Dr. Ramses Dumas PT Coag (PPP) [Time] 10.3 s Normal 9.0-11.6 [facility] Comment on above: Performed By: #### U KJ 24 #### [facility] [place] [facility] [address] [place] [address] Dr. Ramses Dumas PTTon 11-03-2022 aPTT Coag (Bld) [Time] 27.7 s Normal 22.3-36.2 [facility] Comment on above: Performed By: #### U KJ 24 #### [facility] [place] [facility] [address] [place] [address] Dr. Ramses Dumas TSHon 01-16-2023 TSH 0.667 uIU/mL Normal 0.358-3.740 [facility] Comment on above: Performed By: #### C VDTBH #### [facility] [place] [facility] [address] [place] [address] Dr. Ramses Dumas Operative Reporton Operative Report [id number]:127 Normal [facility] Lab Reportson 09-22-2022 Lab Reports [id number]:127 Normal [facility] PREG HCG QUALon 09-18-2022 , QUAL Negative Normal NEGATIVE [facility] Comment on above: Performed By: #### U KJ 24 #### [facility] [place] [facility] [address] [place] [address] Dr. Ramses Dumas [facility] SARS-CoV-2 (COVID-19) RNA FRANCESCA+probe Ql (Unsp spec) Not detected Normal NOT DETECTED [facility] [place] [facility] Comment on above: Result Comment: This test is not yet approved or cleared by the [place] FDA. When there are no FDA-approved or cleared tests available, and other criteria are met, FDA can make tests available under an emergency access mechanism called an Emergency Use Authorization (EUA). The EUA for this test is supported by the [place] of Health and Human Service's (HHS's) declaration that circumstances exist to justify the emergency use of in vitro diagnostics for the detection and/or diagnosis of the virus that causes COVID-19. This EUA will remain in effect (meaning this test can be used) for the duration of the COVID-19 declaration justifying emergency of IVDs, unless it is terminated or revoked by FDA (after which the test may no longer be used). When diagnostic testing is negative, the possibility of a false negative should be considered in the context of a patient's recent exposures and the presence of clinical signs and symptoms consistent with SARS-CoV-2. Performed By: #### C VDTBH #### [facility] [place] [facility] [address] [place] [address] Dr. Ramses Dumas CBC AUTO DIFFon 09-05-2022 BASO # 0.1 103/ul Normal 0.0-0.1 [facility] Comment on above: Performed By: #### B [id number] #### [facility] [place] [facility] [address] [place] [address] Dr. Ramses Dumas Basophils/100 WBC (Bld) 0.7 % Normal 0.2-2.0 [facility] Comment on above: Performed By: #### B LDCX2 #### [facility] [place] [facility] [address] [place] [address] Dr. Ramses Dumas EO # 0.2 103/ul Normal 0.0-0.7 [facility] Comment on above: Performed By: #### B LDCX2 #### [facility] [place] [facility] [address] [place] [address] Dr. Ramses Dumas Eosinophils/100 WBC (Bld) 2.2 % Normal 0.9-7.0 [facility] Comment on above: Performed By: #### B LDCX2 #### [facility] [place] [facility] [address] [place] [address] Dr. Ramses Dumas Erythrocyte distribution width (RBC) [Ratio] 13.9 % Normal 11.0-15.0 [facility] Comment on above: Performed By: #### B LDCX2 #### [facility] [place] [facility] [address] [place] [address] Dr. Ramses Dumas Hematocrit (Bld) [Volume fraction] 38.8 % Normal 36.0-48.0 [facility] Comment on above: Performed By: #### B LDCX2 #### [facility] [place] [facility] [address] [place] [address] Dr. Ramses Dumas Hemoglobin (Bld) [Mass/Vol] 12.6 g/dL Normal 12.0-16.0 [facility] [place] [facility] Comment on above: Performed By: #### B LDCX2 #### [facility] [place] [facility] [address] [place] [address] Dr. Ramses Dumas IG # 0.03 10e3/ul Normal 0.00-0.03 [facility] Comment on above: Performed By: #### B [id number] #### [facility] [place] [facility] [address] [address] [address] Ramses Dumas IG % 0.3 % Normal 0.0-0.5 [facility] Comment on above: Performed By: #### B LDCX2 #### [facility] [place] [facility] [address] [address] [address] Ramses Dumas LYMPH # 2.3 103/ul Normal 1.2-3.8 [facility] Comment on above: Performed By: #### B [id number] #### [facility] [place] [facility] [address] [place] [address] Dr. Ramses Dumas Lymphocytes/100 WBC (Bld) 21.3 % Normal 20.5-60.0 [facility] Comment on above: Performed By: #### B LDCX2 #### [facility] [place] [facility] [address] [place] [address] Dr. Ramses Dumas MANUAL DIFF REQ NO Normal [facility] Comment on above: Performed By: #### B LDCX2 #### [facility] [place] [facility] [address] [place] [address] Dr. Ramses Dumas MCH (RBC) [Entitic mass] 26.4 pg Critically low 26.7-34.0 [facility] Comment on above: Performed By: #### B LDCX2 #### [facility] [place] [facility] [address] [place] [address] Dr. Ramses Dumas MCHC (RBC) [Mass/Vol] 32.5 g/dL Normal 29.9-35.2 [facility] Comment on above: Performed By: #### B LDCX2 #### [facility] [place] [facility] [address] [place] [address] Dr. Ramses Dumas MCV (RBC) [Entitic vol] 81.2 fL Normal 81.0-99.0 [facility] Comment on above: Performed By: #### B LDCX2 #### [facility] [place] [facility] [address] [place] [address] Dr. Ramses Dumas MONO # 0.8 103/ul Normal 0.3-0.8 [facility] Comment on above: Performed By: #### B LDCX2 #### [facility] [place] [facility] [address] [place] [address] Dr. Ramses Dumas Monocytes/100 WBC (Bld) 7.4 % Normal 1.7-12.0 [facility] Comment on above: Performed By: #### B LDCX2 #### [facility] [place] [facility] [address] [place] [address] Dr. Ramses Dumas NEUT # 7.3 103/ul Critically high 1.4-6.5 [facility] Comment on above: Performed By: #### B LDCX2 #### [facility] [place] [facility] [address] [place] [address] Dr. Ramses Dumas Neutrophils/100 WBC (Bld) 68.1 % Normal 43.0-75.0 [facility] Comment on above: Performed By: #### B LDCX2 #### [facility] [place] [facility] [address] [place] [address] Dr. Ramses Dumas Platelet mean volume (Bld) [Entitic vol] 8.8 fL Critically low 9.5-13.5 [facility] Comment on above: Performed By: #### B LDCX2 #### [facility] [place] [facility] [address] [place] [address] Dr. Ramses Dumas PLT 323 103/ul Normal 150-450 [facility] [place] [facility] Comment on above: Performed By: #### B LDCX2 #### [facility] [place] [facility] [address] [place] [address] Dr. Ramses Dumas RBC 4.78 106/ul Normal 4.20-5.40 [facility] [place] [facility] Comment on above: Performed By: #### B LDCX2 #### [facility] [place] [facility] [address] [place] [address] Dr. Ramses Dumas WBC 10.7 103/ul Normal 4.0-11.0 [facility] [place] [facility] Comment on above: Performed By: #### B LDCX2 #### [facility] [place] [facility] [address] [place] [address] Dr. Ramses Dumas CULTURE URINEon 09-05-2022 CULTURE URINE Culture Observations : LIGHT GROWTH OF MIXED GENITAL DAIANA. NO POTENTIAL PATHOGENS SEEN. Normal [facility] [place] [facility] Comment on above: Performed By: #### U RCX #### [facility] [place] [facility] [address] [address] [address] Ramses KUMAR URINE PROFILEon 2 Bilirubin Ql (U) Negative Normal NEGATIVE [facility] Comment on above: Performed By: #### B [id number] #### [facility] [place] [facility] [address] [place] [address] Dr. Ramses Dumas Clarity (U) CLOUDY Abnormal CLEAR [facility] [place] [facility] Comment on above: Performed By: #### B LDCX2 #### [facility] [place] [facility] [address] [address] [address] Ramses Dumas Color (U) YELLOW Normal YELLOW [facility] Comment on above: Performed By: #### B LDCX2 #### [facility] [place] [facility] [address] [place] [address] Dr. Ramses DELEON A micrscopic examination will be performed if indicated. Normal [facility] [place] [facility] Comment on above: Performed By: #### B LDCX2 #### [facility] [place] [facility] [address] [place] [address] Dr. Ramses Dumas Glucose Ql (U) Negative Normal NEGATIVE [facility] Comment on above: Performed By: #### B LDCX2 #### [facility] [place] [facility] [address] [place] [address] Dr. Ramses Dumas Hemoglobin Ql (U) LARGE Abnormal NEGATIVE [facility] Comment on above: Performed By: #### B LDCX2 #### [facility] [place] [facility] [address] [address] [address] Ramses Dumas Ketones Ql (U) Negative Normal NEGATIVE [facility] Comment on above: Performed By: #### B LDCX2 #### [facility] [place] [facility] [address] [address] [address] Ramses Dumas LEUKOCYTES SMALL Abnormal NEGATIVE [facility] Comment on above: Performed By: #### B LDCX2 #### [facility] [place] [facility] [address] [place] [address] Dr. Ramses Dumas Nitrite Ql (U) Negative Normal NEGATIVE [facility] Comment on above: Performed By: #### B LDCX2 #### [facility] [place] [facility] [address] [address] [address] Ramses Dumas pH (U) 6.0 [pH] Normal 5-9 [facility] Comment on above: Performed By: #### B LDCX2 #### [facility] [place] [facility] [address] [address] [address] Ramses Dumas Protein (U) [Mass/Vol] 100 mg/dL Abnormal NEGAT CHRIS/ TRACE [facility] Comment on above: Performed By: #### B LDCX2 #### [facility] [place] [facility] [address] [place] [address] Dr. Ramses Dumas SPEC GRAVITY >=1.030 Abnormal 1.005-<=1.02 5 [facility] Comment on above: Performed By: #### B LDCX2 #### [facility] [place] [facility] [address] [place] [address] Dr. Ramses Dumas UR MICRO IND INDICATED Normal [facility] Comment on above: Performed By: #### B LDCX2 #### [facility] [place] [facility] [address] [place] [address] Dr. Ramses Dumas Urobilinogen Qn (U) 0.2 {Lucero'U}/dL Normal 0.2 - 1. 0 [facility] Comment on above: Performed By: #### B LDCX2 #### [facility] [place] [facility] [address] [place] [address] Dr. Ramses Dumas URon 09-05-2022 , QUAL Negative Normal NEGATIVE [facility] Comment on above: Performed By: #### B LDCX2 #### [facility] [place] [facility] [address] [place] [address] Dr. Ramses Dumas PROF CHEM 8 (BAS METB)on Anion gap [Moles/Vol] 11.7 mmol/L Normal [facility] Comment on above: Performed By: #### C MP #### [facility] [place] [facility] [address] [place] [address] Dr. Ramses Dumas Calcium [Mass/Vol] 9.1 mg/dL Normal 8.5-10.1 [facility] Comment on above: Performed By: #### C MP #### [facility] [place] [facility] [address] [address] [address] Ramses Dumas Chloride [Moles/Vol] 103 mmol/L Normal 98-107 [facility] Comment on above: Performed By: #### C MP #### [facility] [place] [facility] [address] [address] [address] Ramses Dumas CO2 [Moles/Vol] 25.9 mmol/L Normal 21.0-32.0 [facility] Comment on above: Performed By: #### C MP #### [facility] [place] [facility] [address] [address] [address] Ramses Dumas Creatinine [Mass/Vol] 0.77 mg/dL Normal 0.55-1.02 [facility] Comment on above: Performed By: #### C MP #### [facility] [place] [facility] [address] [address] [address] Ramses Dumas EGFR-AF SRI LANKAN >60 Normal >=60 [facility] Comment on above: Performed By: #### C MP #### [facility] [place] [facility] [address] [address] [address] Ramses Dumas EGFR-NON AF SRI LANKAN >60 Normal >=60 [facility] Comment on above: Performed By: #### C MP #### [facility] [place] [facility] [address] [address] [address] Ramses Dumas Glucose [Mass/Vol] 124 mg/dL Critically high 74-106 [facility] Comment on above: Performed By: #### C MP #### [facility] [place] [facility] [address] [address] [address] Ramses Dumas Potassium [Moles/Vol] 3.6 mmol/L Normal 3.5-5.1 [facility] [place] [facility] Comment on above: Performed By: #### C MP #### [facility] [place] [facility] [address] [place] [address] Dr. Ramses Dumas Sodium [Moles/Vol] 137 mmol/L Normal 136-145 [facility] Comment on above: Performed By: #### C MP #### [facility] [place] [facility] [address] [address] [address] Ramses Dumas Urea nitrogen [Mass/Vol] 12.0 mg/dL Normal 7.0-18.0 [facility] Comment on above: Performed By: #### C MP #### [facility] [place] [facility] [address] [place] [address] Dr. Ramses Dumas Urea nitrogen/Creatinine [Mass ratio] 15.6 mg/mg Normal [facility] Comment on above: Performed By: #### C MP #### [facility] [place] [facility] [address] [place] [address] Dr. Ramses Dumas URINE MICROSCOPIC ONLYon AMORPHOUS CRYSTALS RARE Normal [facility] Comment on above: Performed By: #### B LDCX2 #### [facility] [place] [facility] [address] [place] [address] Dr. Ramses Dumas BACTERIA TRACE Abnormal NONE SEEN [facility] Comment on above: Performed By: #### B LDCX2 #### [facility] [place] [facility] [address] [place] [address] Dr. Ramses Dumas Bacteria identified Cx Nom (U) INDICATED Normal [facility] Comment on above: Performed By: #### B LDCX2 #### [facility] [place] [facility] [address] [place] [address] Dr. Ramses Dumas CA OX CRYSTALS RARE Normal [facility] Comment on above: Performed By: #### B LDCX2 #### [facility] [place] [facility] [address] [place] [address] Dr. Ramses Dumas CAST NONE SEEN Normal NONE SEEN [facility] Comment on above: Performed By: #### B LDCX2 #### [facility] [place] [facility] [address] [place] [address] Dr. Ramses Dumas Crystals LM Nom (Urine sed) SEEN Abnormal NONE SEEN [facility] Comment on above: Performed By: #### B LDCX2 #### [facility] [place] [facility] [address] [place] [address] Dr. Ramses Dumas Epithelial cells LM Ql (Urine sed) FEW Abnormal NONE SEEN /RARE [facility] [place] [facility] Comment on above: Performed By: #### B LDCX2 #### [facility] [place] [facility] [address] [place] [address] Dr. Ramses Dumas MUCOUS TRACE Abnormal NONE SEEN [facility] [place] [facility] Comment on above: Performed By: #### B LDCX2 #### [facility] [place] [facility] [address] [place] [address] Dr. Ramses Dumas RBC 50-75 Abnormal 0-2 [facility] [place] [facility] Comment on above: Performed By: #### B LDCX2 #### [facility] [place] [facility] [address] [place] [address] Dr. Ramses Dumas WBC 20-50 Abnormal NONE SEEN [facility] [place] [facility] Comment on above: Performed By: #### B LDCX2 #### [facility] [place] [facility] [address] [place] [address] Dr. Ramses Dumas YEAST PRESENT Abnormal NONE SEEN [facility] [place] [facility] Comment on above: Performed By: #### B LDCX2 #### [facility] [place] [facility] [address] [place] [address] Dr. Ramses Dumas US KIDNEYSon 09-05-2022 US KIDNEYS EXAMINATION: US KIDNEYS HISTORY: Pain COMPARISON: No relevant comparison available. TECHNIQUE: Ultrasound examination was performed of the bladder. FINDINGS: Right Kidney: Normal in size and contour. No focal solid cortical mass or hydronephrosis The cortex measures 0.9 cm. Multiple echogenic foci measuring up to 1.3 cm, cholelithiasis Height: 5.5 cm Length: 12.6 cm Width: 6.4 cm Left Kidney: Normal in size and contour. No focal solid cortical mass. Mild hydronephrosis. The cortex measures 1.4 cm. Multiple echogenic foci measuring up to 0.9 cm, cholelithiasis Height: 7.3 cm Length: 12.6 cm Width: 6.4 cm Urinary bladder contains a focal density along the posterior wall measuring 2.2 cm this could represent a ureteral stent. Bladder volume 171 mL IMPRESSION: Mild left hydronephrosis with suspected left ureteral stent Bilateral nonobstructing nephrolithiasis Electronically authenticated by: GLEN GRAFF Date: 2022-09-05 11:00 Normal [facility] Lab Reportson 09-01-2022 Lab Reports [id number]:127 Normal [facility] RAD - CT Reporton 09-01-2022 RAD - CT Report [id number]:127 Normal [facility] CT ABD/PELVIS WO CONon 08-29 CT ABD/PELVIS WO CON EXAMINATION: CT ABD/PELVIS WO CON, 08/28/2022 9:48 PM EST HISTORY: CALCULUS OF KIDNEY. COMPARISON: Abdominal CTs most recently 08/25/2021, 11/17/2021, 01/01/2022, 08/22/2022. TECHNIQUE: CT scan of the abdomen and pelvis was performed without IV contrast. CT dose reduction technique was used, including Automated Exposure Control. FINDINGS: Visualized lung bases demonstrate trace left pleural effusion and associated lower lobe atelectasis. In the abdomen, patient has undergone interval placement of a ureteral stent on the left. Mild left hydronephrosis has improved in the interval. There is no stone material identified along the course of the stent or in the bladder. A nonobstructing stone in the interpolar region of the left kidney measures 11 mm, this appears to have been displaced from the UPJ. On the right side, there is no hydronephrosis. Small nonobstructing stone in the lower pole of the right kidney measuring 5 mm. Liver is fatty infiltrated. Gallbladder has been removed. No bowel obstruction, pneumatosis, or pneumoperitoneum. Normal appendix. No pelvic adenopathy or ascites. IMPRESSION: 1. Interval left ureteral stent placement with improving mild left hydronephrosis. Large UPJ stone displaced into the left lower pole in the interval. 2. Nonobstructing nephrolithiasis on the right. 3. New trace left pleural effusion. 4. Severe fatty liver, unchanged. Electronically authenticated by: ERICKA IGLESIAS Date: 2022-08-29 01:10 Normal [facility] [place] [facility] CULTURE URINEon 08-29-2022 CULTURE URINE Culture Observations : LIGHT GROWTH OF MIXED GENITAL DAIANA. NO POTENTIAL PATHOGENS SEEN. Normal [facility] [place] [facility] Comment on above: Performed By: #### U RCX #### [facility] [place] [facility] [address] [place] [address] Dr. Ramses Dumas CBC AUTO DIFFon 08-28-2022 BASO # 0.1 103/ul Normal 0.0-0.1 [facility] Comment on above: Performed By: #### U RCX #### [facility] [place] [facility] [address] [address] [address] Ramses Dumas Basophils/100 WBC (Bld) 0.5 % Normal 0.2-2.0 [facility] Comment on above: Performed By: #### U RCX #### [facility] [place] [facility] [address] [address] [address] Ramses Dumas EO # 0.3 103/ul Normal 0.0-0.7 [facility] Comment on above: Performed By: #### U RCX #### [facility] [place] [facility] [address] [address] [address] Ramses Dumas Eosinophils/100 WBC (Bld) 2.3 % Normal 0.9-7.0 [facility] Comment on above: Performed By: #### U RCX #### [facility] [place] [facility] [address] [place] [address] Dr. Ramses Dumas Erythrocyte distribution width (RBC) [Ratio] 13.7 % Normal 11.0-15.0 [facility] Comment on above: Performed By: #### U RCX #### [facility] [place] [facility] [address] [place] [address] Dr. Ramses Dumas Hematocrit (Bld) [Volume fraction] 36.7 % Normal 36.0-48.0 [facility] Comment on above: Performed By: #### U RCX #### [facility] [place] [facility] [address] [place] [address] Dr. Ramses Dumas Hemoglobin (Bld) [Mass/Vol] 12.3 g/dL Normal 12.0-16.0 [facility] Comment on above: Performed By: #### U RCX #### [facility] [place] [facility] [address] [address] [address] Ramses Dumas IG # 0.16 10e3/ul Critically high 0.00-0.03 [facility] Comment on above: Performed By: #### U RCX #### [facility] [place] [facility] [address] [address] [address] Ramses Dumas IG % 1.1 % Critically high 0.0-0.5 [facility] Comment on above: Performed By: #### U RCX #### [facility] [place] [facility] [address] [address] [address] Ramsse Dumas LYMPH # 4.6 103/ul Critically high 1.2-3.8 [facility] Comment on above: Performed By: #### U RCX #### [facility] [place] [facility] [address] [address] [address] Ramses Dumas Lymphocytes/100 WBC (Bld) 31.8 % Normal 20.5-60.0 [facility] Comment on above: Performed By: #### U RCX #### [facility] [place] [facility] [address] [place] [address] Dr. Ramses Dumas MANUAL DIFF REQ NO Normal [facility] Comment on above: Performed By: #### U RCX #### [facility] [place] [facility] [address] [place] [address] Dr. Ramses Dumas MCH (RBC) [Entitic mass] 26.9 pg Normal 26.7-34.0 [facility] Comment on above: Performed By: #### U RCX #### [facility] [place] [facility] [address] [place] [address] Dr. Ramses Dumas MCHC (RBC) [Mass/Vol] 33.5 g/dL Normal 29.9-35.2 [facility] Comment on above: Performed By: #### U RCX #### [facility] [place] [facility] [address] [place] [address] Dr. Ramses Dumas MCV (RBC) [Entitic vol] 80.3 fL Critically low 81.0-99.0 [facility] Comment on above: Performed By: #### U RCX #### [facility] [place] [facility] [address] [address] [address] Ramses Dumas MONO # 1.0 103/ul Critically high 0.3-0.8 [facility] Comment on above: Performed By: #### U RCX #### [facility] [place] [facility] [address] [address] [address] Ramses Dumas Monocytes/100 WBC (Bld) 7.0 % Normal 1.7-12.0 [facility] Comment on above: Performed By: #### U RCX #### [facility] [place] [facility] [address] [address] [address] Ramses Dumas NEUT # 8.2 103/ul Critically high 1.4-6.5 [facility] Comment on above: Performed By: #### U RCX #### [facility] [place] [facility] [address] [address] [address] Ramses Dumas Neutrophils/100 WBC (Bld) 57.3 % Normal 43.0-75.0 [facility] Comment on above: Performed By: #### U RCX #### [facility] [place] [facility] [address] [address] [address] Ramses Dumas Platelet mean volume (Bld) [Entitic vol] 8.6 fL Critically low 9.5-13.5 [facility] Comment on above: Performed By: #### U RCX #### [facility] [facility] [address] [address] [address] Ramses Dumas PLT 395 103/ul Normal 150-450 [facility] Comment on above: Performed By: #### U RCX #### [facility] [address] [address] [address] Ramses Dumas RBC 4.57 106/ul Normal 4.20-5.40 [facility] Comment on above: Performed By: #### U RCX #### [facility] [place] [facility] [address] [address] [address] Ramses Dumas WBC 14.3 103/ul Critically high 4.0-11.0 [facility] Comment on above: Performed By: #### U RCX #### [facility] [place] [facility] [address] [address] [address] Ramses Dumas Consent for Procedure/Surger yon 08-28-2022 Consent for Procedure/Surgery [id number]:127 Normal [facility] Consultation Noteon 08-28-20 Consultation Note [id number]:127 Normal [facility] ER URINE PROFILEon 2 Bilirubin Ql (U) Negative Normal NEGATIVE [facility] Comment on above: Performed By: #### U KJ 24 #### [facility] [place] [facility] [address] [place] [address] Dr. Ramses Dumas Clarity (U) CLEAR Normal CLEAR [facility] [place] [facility] Comment on above: Performed By: #### U KJ 24 #### [facility] [place] [facility] [address] [place] [address] Dr. Ramses Dumas Color (U) LT. YELLOW Normal YELLOW [facility] Comment on above: Performed By: #### U KJ 24 #### [facility] [place] [facility] [address] [place] [address] Dr. Ramses DELEON A micrscopic examination will be performed if indicated. Normal [facility] [place] [facility] Comment on above: Performed By: #### U KJ 24 #### [facility] [place] [facility] [address] [place] [address] Dr. Ramses Dumas Glucose Ql (U) Negative Normal NEGATIVE [facility] Comment on above: Performed By: #### U KJ 24 #### [facility] [place] [facility] [address] [place] [address] Dr. Ramses Dumas Hemoglobin Ql (U) LARGE Abnormal NEGATIVE [facility] Comment on above: Performed By: #### U KJ 24 #### [facility] [place] [facility] [address] [place] [address] Dr. Ramses Dumas Ketones Ql (U) Negative Normal NEGATIVE [facility] Comment on above: Performed By: #### U KJ 24 #### [facility] [place] [facility] [address] [place] [address] Dr. Ramses Dumas LEUKOCYTES MODERATE Abnormal NEGATIVE [facility] [place] [facility] Comment on above: Performed By: #### U KJ 24 #### [facility] [place] [facility] [address] [place] [address] Dr. Ramses Dumas Nitrite Ql (U) Negative Normal NEGATIVE [facility] Comment on above: Performed By: #### U KJ 24 #### [facility] [place] [facility] [address] [place] [address] Dr. Ramses Dumas pH (U) 6.5 [pH] Normal 5-9 [facility] Comment on above: Performed By: #### U KJ 24 #### [facility] [place] [facility] [address] [place] [address] Dr. Ramses Dumas Protein (U) [Mass/Vol] 100 mg/dL Abnormal NEGAT CHRIS/ TRACE [facility] Comment on above: Performed By: #### U KJ 24 #### [facility] [place] [facility] [address] [place] [address] Dr. Ramses Dumas SPEC GRAVITY 1.020 Normal 1.005-<=1.02 5 [facility] Comment on above: Performed By: #### U KJ 24 #### [facility] [place] [facility] [address] [place] [address] Dr. Ramses Dumas UR MICRO IND INDICATED Normal [facility] Comment on above: Performed By: #### U KJ 24 #### [facility] [place] [facility] [address] [place] [address] Dr. Ramses Dumas Urobilinogen Qn (U) 0.2 {Lucero'U}/dL Normal 0.2 - 1. 0 [facility] Comment on above: Performed By: #### U KJ 24 #### [facility] [place] [facility] [address] [place] [address] Dr. Ramses Dumas Operative Reporton 2 Operative Report [id number] .[id number]:127 Normal [facility] PROF 14(COMP METB)on 022 Albumin [Mass/Vol] 3.3 g/dL Critically low 3.4-5.0 [facility] Comment on above: Performed By: #### C MP #### [facility] [place] [facility] [address] [place] [address] Dr. Ramses Dumas Albumin/Globulin [Mass ratio] 0.8 {ratio} Normal [facility] Comment on above: Performed By: #### C MP #### [facility] [place] [facility] [address] [place] [address] Dr. Ramses Dumas ALP [Catalytic activity/Vol] 108 U/L Normal 46-116 [facility] Comment on above: Performed By: #### C MP #### [facility] [place] [facility] [address] [address] [address] Ramses Dumas ALT [Catalytic activity/Vol] 103 U/L Critically high 14-59 [facility] Comment on above: Performed By: #### C MP #### [facility] [place] [facility] [address] [address] [address] Ramses Dumas Anion gap [Moles/Vol] 6.6 mmol/L Normal [facility] Comment on above: Performed By: #### C MP #### [facility] [place] [facility] [address] [address] [address] Ramses Dumas AST [Catalytic activity/Vol] 21 U/L Normal 15-37 [facility] Comment on above: Performed By: #### C MP #### [facility] [place] [facility] [address] [place] [address] Dr. Ramses Dumas Bilirubin [Mass/Vol] 0.2 mg/dL Normal 0.2-1.0 [facility] Comment on above: Performed By: #### C MP #### [facility] [place] [facility] [address] [address] [address] Ramses Dumas Calcium [Mass/Vol] 9.2 mg/dL Normal 8.5-10.1 [facility] Comment on above: Performed By: #### C MP #### [facility] [place] [facility] [address] [address] [address] Ramses Dumas Chloride [Moles/Vol] 102 mmol/L Normal 98-107 [facility] [place] [facility] Comment on above: Performed By: #### C MP #### [facility] [place] [facility] [address] [address] [address] Ramses Dumas CO2 [Moles/Vol] 28.8 mmol/L Normal 21.0-32.0 [facility] Comment on above: Performed By: #### C MP #### [facility] [place] [facility] [address] [address] [address] Ramses Dumas Creatinine [Mass/Vol] 0.92 mg/dL Normal 0.55-1.02 [facility] Comment on above: Performed By: #### C MP #### [facility] [place] [facility] [address] [address] [address] Ramses Dumas EGFR-AF SRI LANKAN >60 Normal >=60 [facility] Comment on above: Performed By: #### C MP #### [facility] [place] [facility] [address] [address] [address] Ramses Dumas EGFR-NON AF SRI LANKAN >60 Normal >=60 [facility] Comment on above: Performed By: #### C MP #### [facility] [place] [facility] [address] [address] [address] Ramses Dumas Globulin (S) [Mass/Vol] 4.1 g/dL Normal [facility] Comment on above: Performed By: #### C MP #### [facility] [place] [facility] [address] [address] [address] Ramses Dumas Glucose [Mass/Vol] 114 mg/dL Critically high 74-106 [facility] Comment on above: Performed By: #### C MP #### [facility] [place] [facility] [address] [address] [address] Ramses Dumas Potassium [Moles/Vol] 3.4 mmol/L Critically low 3.5-5.1 [facility] Comment on above: Performed By: #### C MP #### [facility] [place] [facility] [address] [place] [address] Dr. Ramses Dumas Protein [Mass/Vol] 7.4 g/dL Normal 6.4-8.2 [facility] Comment on above: Performed By: #### C MP #### [facility] [place] [facility] [address] [address] [address] Ramses Dumas Sodium [Moles/Vol] 134 mmol/L Critically low 136-145 [facility] Comment on above: Performed By: #### C MP #### [facility] [place] [facility] [address] [address] [address] Ramses Dumas Urea nitrogen [Mass/Vol] 11.0 mg/dL Normal 7.0-18.0 [facility] Comment on above: Performed By: #### C MP #### [facility] [place] [facility] [address] [address] [address] Ramses Dumas Urea nitrogen/Creatinine [Mass ratio] 12.0 mg/mg Normal [facility] [place] [facility] Comment on above: Performed By: #### C MP #### [facility] [place] [facility] [address] [place] [address] Dr. Ramses Dumas URINE MICROSCOPIC ONLYon BACTERIA MODERATE Abnormal NONE SEEN [facility] [place] [facility] Comment on above: Performed By: #### U KJ 24 #### [facility] [place] [facility] [address] [place] [address] Dr. Ramses Dumas Bacteria identified Cx Nom (U) INDICATED Normal [facility] [place] [facility] Comment on above: Performed By: #### U KJ 24 #### [facility] [place] [facility] [address] [place] [address] Dr. Ramses Dumas CAST NONE SEEN Normal NONE SEEN [facility] [place] [facility] Comment on above: Performed By: #### U KJ 24 #### [facility] [place] [facility] [address] [place] [address] Dr. Ramses Dumas Crystals LM Nom (Urine sed) NONE SEEN Normal NONE SEEN [facility] [place] [facility] Comment on above: Performed By: #### U KJ 24 #### [facility] [place] [facility] [address] [place] [address] Dr. Ramses Dumas Epithelial cells LM Ql (Urine sed) RARE Normal NONE SEEN /RARE [facility] [place] [facility] Comment on above: Performed By: #### U KJ 24 #### [facility] [place] [facility] [address] [place] [address] Dr. Ramses Dumas MUCOUS NONE SEEN Normal NONE SEEN [facility] [place] [facility] Comment on above: Performed By: #### U KJ 24 #### [facility] [place] [facility] [address] [place] [address] Dr. Ramses Dumas RBC 20-50 Abnormal 0-2 [facility] [place] [facility] Comment on above: Performed By: #### U KJ 24 #### [facility] [place] [facility] [address] [place] [address] Dr. Ramses Dumas WBC 5-10 Abnormal NONE SEEN [facility] [place] [facility] Comment on above: Performed By: #### U KJ 24 #### [facility] [place] [facility] [address] [place] [address] Dr. Ramses Dumas CULTURE BLOODon 08-25-2022 Microscopic examination of blood, culture Culture Observations: Pediatric bottle positive, only bottle drawn Culture Observations: BCID- Streptococcus agalactiae. Called to Dolly Dewey RN at 0915 on 08/23/22 Isolate 1 Streptococcus agalactiae Growth of ORGANISM 1 Streptococcus agalactiae ANTIBIOTIC M.I.C RX STATUS Benzylpenicillin <=0.06 S F Ampicillin <=0.25 S F Cefotaxime <=0.12 S F Ceftriaxone <=0.12 S F Levofloxacin 0.5 S F Inducible Clindamycin Resistance Neg NEG F Erythromycin >=8 R F Clindamycin >=1 R F Linezolid <=2 S F Vancomycin 0.5 S F Tetracycline >=16 R F Normal [facility] Comment on above: Performed By: #### B LDCX2 #### [facility] [place] [facility] [address] [place] [address] Dr. Ramses Dumas Microscopic examination of blood, culture Culture Observations: Pediatric bottle positive, only bottle drawn Culture Observations: BCID- Streptococcus agalactiae. Called to Dolly Dewey RN at 0915 on 08/23/22 Isolate 1 Streptococcus agalactiae Growth of ORGANISM 1 Streptococcus agalactiae ANTIBIOTIC M.I.C RX STATUS Benzylpenicillin <=0.06 S F Ampicillin <=0.25 S F Cefotaxime <=0.12 S F Ceftriaxone <=0.12 S F Levofloxacin 0.5 S F Inducible Clindamycin Resistance Neg NEG F Erythromycin >=8 R F Clindamycin >=1 R F Linezolid <=2 S F Vancomycin 0.5 S F Tetracycline >=16 R F Normal [facility] Comment on above: Performed By: #### C BC #### [facility] [place] [facility] [address] [place] [address] Dr. Ramses Dumas Insurance Correspondence Off iceon 08-25-2022 Insurance Correspondence Office [id number] [id number]:127 Normal [facility] CBC AUTO DIFFon 08-24-2022 BASO # 0.0 103/ul Normal 0.0-0.1 [facility] Comment on above: Performed By: #### C BC #### [facility] [place] [facility] [address] [address] [address] Ramses Dumas Basophils/100 WBC (Bld) 0.1 % Critically low 0.2-2.0 [facility] Comment on above: Performed By: #### C BC #### [facility] [place] [facility] [address] [address] [address] Ramses Dumas EO # 0.0 103/ul Normal 0.0-0.7 [facility] Comment on above: Performed By: #### C BC #### [facility] [place] [facility] [address] [address] [address] Ramses Dumas Eosinophils/100 WBC (Bld) 0.0 % Critically low 0.9-7.0 [facility] Comment on above: Performed By: #### C BC #### [facility] [place] [facility] [address] [place] [address] Dr. Ramses Dumas Erythrocyte distribution width (RBC) [Ratio] 13.5 % Normal 11.0-15.0 [facility] Comment on above: Performed By: #### C BC #### [facility] [place] [facility] [address] [address] [address] Ramses Dumas Hematocrit (Bld) [Volume fraction] 33.0 % Critically low 36.0-48.0 [facility] Comment on above: Performed By: #### C BC #### [facility] [place] [facility] [address] [place] [address] Dr. Ramses Dumas Hemoglobin (Bld) [Mass/Vol] 10.7 g/dL Critically low 12.0-16.0 [facility] Comment on above: Performed By: #### C BC #### [facility] [place] [facility] [address] [address] [address] Ramses Dumas IG # 0.04 10e3/ul Critically high 0.00-0.03 [facility] Comment on above: Performed By: #### C BC #### [facility] [place] [facility] [address] [address] [address] Ramses Dumas IG % 0.4 % Normal 0.0-0.5 [facility] Comment on above: Performed By: #### C BC #### [facility] [place] [facility] [address] [address] [address] Ramses Dumas LYMPH # 0.8 103/ul Critically low 1.2-3.8 [facility] Comment on above: Performed By: #### C BC #### [facility] [place] [facility] [address] [address] [address] Ramses Dumas Lymphocytes/100 WBC (Bld) 7.9 % Critically low 20.5-60.0 [facility] Comment on above: Performed By: #### C BC #### [facility] [place] [facility] [address] [address] [address] Ramses Dumas MANUAL DIFF REQ NO Normal [facility] Comment on above: Performed By: #### C BC #### [facility] [place] [facility] [address] [place] [address] Dr. Ramses Dumas MCH (RBC) [Entitic mass] 26.5 pg Critically low 26.7-34.0 [facility] Comment on above: Performed By: #### C BC #### [facility] [place] [facility] [address] [place] [address] Dr. Ramses Dumas MCHC (RBC) [Mass/Vol] 32.4 g/dL Normal 29.9-35.2 [facility] Comment on above: Performed By: #### C BC #### [facility] [place] [facility] [address] [place] [address] Dr. Ramses Dumas MCV (RBC) [Entitic vol] 81.7 fL Normal 81.0-99.0 [facility] Comment on above: Performed By: #### C BC #### [facility] [place] [facility] [address] [place] [address] Dr. Ramses Dumas MONO # 0.6 103/ul Normal 0.3-0.8 [facility] [place] [facility] Comment on above: Performed By: #### C BC #### [facility] [place] [facility] [address] [place] [address] Dr. Ramses Dumas Monocytes/100 WBC (Bld) 6.3 % Normal 1.7-12.0 [facility] Comment on above: Performed By: #### C BC #### [facility] [place] [facility] [address] [address] [address] Ramses Dumas NEUT # 8.6 103/ul Critically high 1.4-6.5 [facility] Comment on above: Performed By: #### C BC #### [facility] [place] [facility] [address] [address] [address] Ramses Dumas Neutrophils/100 WBC (Bld) 85.3 % Critically high 43.0-75.0 [facility] [place] [facility] Comment on above: Performed By: #### C BC #### [facility] [place] [facility] [address] [address] [address] Ramses Dumas Platelet mean volume (Bld) [Entitic vol] 9.1 fL Critically low 9.5-13.5 [facility] [place] [facility] Comment on above: Performed By: #### C BC #### [facility] [place] [facility] [address] [address] [address] Ramses Dumas PLT 248 103/ul Normal 150-450 [facility] [place] [facility] Comment on above: Performed By: #### C BC #### [facility] [place] [facility] [address] [address] [address] Ramses Dumas RBC 4.04 106/ul Critically low 4.20-5.40 [facility] Comment on above: Performed By: #### C BC #### [facility] [place] [facility] [address] [place] [address] Dr. Ramses Dumas WBC 10.1 103/ul Normal 4.0-11.0 [facility] [place] [facility] Comment on above: Performed By: #### C BC #### [facility] [place] [facility] [address] [place] [address] Dr. Ramses Dumas CULTURE URINEon 08-24-2022 CULTURE URINE Culture Observations : Group B Strep called to Dolly Dewey RN at 0915 on 08/23/22 Isolate 1 Streptococcus agalactiae >100,000 cfu/ml of ORGANISM 1 Streptococcus agalactiae ANTIBIOTIC M.I.C RX STATUS Benzylpenicillin <=0.06 S F Ampicillin <=0.25 S F Cefotaxime <=0.12 S F Ceftriaxone <=0.12 S F Levofloxacin 0.5 S F Erythromycin >=8 R F Clindamycin >=1 R F Linezolid <=2 S F Vancomycin 0.5 S F Tetracycline >=16 R F Normal [facility] Comment on above: Performed By: #### U RCX #### [facility] [place] [facility] [address] [place] [address] Dr. Ramses Dumas PROF 14(COMP METB)on 022 Albumin [Mass/Vol] 2.4 g/dL Critically low 3.4-5.0 [facility] Comment on above: Performed By: #### C VDTBH #### [facility] [place] [facility] [address] [place] [address] Dr. Ramses Dumas Albumin/Globulin [Mass ratio] 0.7 {ratio} Normal [facility] Comment on above: Performed By: #### C VDTBH #### [facility] [place] [facility] [address] [place] [address] Dr. Ramses Dumas ALP [Catalytic activity/Vol] 95 U/L Normal 46-116 [facility] Comment on above: Performed By: #### C VDTBH #### [facility] [place] [facility] [address] [place] [address] Dr. Ramses Dumas ALT [Catalytic activity/Vol] 327 U/L Critically high 14-59 [facility] Comment on above: Performed By: #### C VDTBH #### [facility] [place] [facility] [address] [place] [address] Dr. Ramses Dumas Anion gap [Moles/Vol] 8.7 mmol/L Normal [facility] Comment on above: Performed By: #### C VDTBH #### [facility] [place] [facility] [address] [place] [address] Dr. Ramses Dumas AST [Catalytic activity/Vol] 165 U/L Critically high 15-37 [facility] Comment on above: Performed By: #### C VDTBH #### [facility] [place] [facility] [address] [place] [address] Dr. Ramses Dumas Bilirubin [Mass/Vol] 0.4 mg/dL Normal 0.2-1.0 [facility] Comment on above: Performed By: #### C VDTBH #### [facility] [place] [facility] [address] [place], [place] [id number] Dr. Ramses Dumas Calcium [Mass/Vol] 8.0 mg/dL Critically low 8.5-10.1 [facility] Comment on above: Performed By: #### C VDTBH #### [facility] [place] [facility] [address] [place] [address] Dr. Ramses Dumas Chloride [Moles/Vol] 108 mmol/L Critically high 98-107 [facility] Comment on above: Performed By: #### C VDTBH #### [facility] [place] [facility] [address] [place] [address] Dr. Ramses Dumas CO2 [Moles/Vol] 25.3 mmol/L Normal 21.0-32.0 [facility] Comment on above: Performed By: #### C VDTBH #### [facility] [place] [facility] [address] [place] [address] Dr. Ramses Dumas Creatinine [Mass/Vol] 0.70 mg/dL Normal 0.55-1.02 [facility] Comment on above: Performed By: #### C VDTBH #### [facility] [place] [facility] [address] [place] [address] Dr. Ramses Dumas EGFR-AF SRI LANKAN >60 Normal >=60 [facility] Comment on above: Performed By: #### C VDTBH #### [facility] [place] [facility] [address] [place] [address] Dr. Ramses Dumas EGFR-NON AF SRI LANKAN >60 Normal >=60 [facility] Comment on above: Performed By: #### C VDTBH #### [facility] [place] [facility] [address] [place] [address] Dr. Ramses Dumas Globulin (S) [Mass/Vol] 3.6 g/dL Normal [facility] Comment on above: Performed By: #### C VDTBH #### [facility] [place] [facility] [address] [place] [address] Dr. Ramses Dumas Glucose [Mass/Vol] 160 mg/dL Critically high 74-106 [facility] Comment on above: Performed By: #### C VDTBH #### [facility] [place] [facility] [address] [place] [address] Dr. Ramses Dumas Potassium [Moles/Vol] 4.0 mmol/L Normal 3.5-5.1 [facility] Comment on above: Performed By: #### C VDTBH #### [facility] [place] [facility] [address] [place] [address] Dr. Ramses Dumas Protein [Mass/Vol] 6.0 g/dL Critically low 6.4-8.2 [facility] Comment on above: Performed By: #### C VDTBH #### [facility] [place] [facility] [address] [place] [address] Dr. Ramses Dumas Sodium [Moles/Vol] 138 mmol/L Normal 136-145 [facility] Comment on above: Performed By: #### C VDTBH #### [facility] [place] [facility] [address] [place] [address] Dr. Ramses Dumas Urea nitrogen [Mass/Vol] 6.0 mg/dL Critically low 7.0-18.0 [facility] Comment on above: Performed By: #### C VDTBH #### [facility] [place] [facility] [address] [place] [address] Dr. Ramses Dumas Urea nitrogen/Creatinine [Mass ratio] 8.6 mg/mg Normal [facility] Comment on above: Performed By: #### C VDTBH #### [facility] [place] [facility] [address] [place] [address] Dr. Ramses Dumas CBC AUTO DIFFon 08-23-2022 BASO # 0.0 103/ul Normal 0.0-0.1 [facility] Comment on above: Performed By: #### U RCX #### [facility] [place] [facility] [address] [place] [address] Dr. Ramses Dumas Basophils/100 WBC (Bld) 0.2 % Normal 0.2-2.0 [facility] Comment on above: Performed By: #### U RCX #### [facility] [place] [facility] [address] [place] [address] Dr. Ramses Dumas EO # 0.0 103/ul Normal 0.0-0.7 [facility] Comment on above: Performed By: #### U RCX #### [facility] [place] [facility] [address] [address] [address] Ramses Dumas Eosinophils/100 WBC (Bld) 0.1 % Critically low 0.9-7.0 [facility] Comment on above: Performed By: #### U RCX #### [facility] [place] [facility] [address] [place] [address] Dr. Ramses Dumas Erythrocyte distribution width (RBC) [Ratio] 13.4 % Normal 11.0-15.0 [facility] Comment on above: Performed By: #### U RCX #### [facility] [place] [facility] [address] [place] [address] Dr. Ramses Dumas Hematocrit (Bld) [Volume fraction] 34.1 % Critically low 36.0-48.0 [facility] Comment on above: Performed By: #### U RCX #### [facility] [place] [facility] [address] [place] [address] Dr. Ramses Dumas Hemoglobin (Bld) [Mass/Vol] 10.9 g/dL Critically low 12.0-16.0 [facility] Comment on above: Performed By: #### U RCX #### [facility] [place] [facility] [address] [place] [address] Dr. Ramses Dumas IG # 0.02 10e3/ul Normal 0.00-0.03 [facility] Comment on above: Performed By: #### U RCX #### [facility] [place] [facility] [address] [place] [address] Dr. Ramses Dumas IG % 0.2 % Normal 0.0-0.5 [facility] [place] [facility] Comment on above: Performed By: #### U RCX #### [facility] [place] [facility] [address] [place] [address] Dr. Ramses Dumas LYMPH # 0.7 103/ul Critically low 1.2-3.8 [facility] Comment on above: Performed By: #### U RCX #### [facility] [place] [facility] [address] [place] [address] Dr. Ramses Dumas Lymphocytes/100 WBC (Bld) 6.9 % Critically low 20.5-60.0 [facility] Comment on above: Performed By: #### U RCX #### [facility] [place] [facility] [address] [place] [address] Dr. Ramses Dumas MANUAL DIFF REQ NO Normal [facility] Comment on above: Performed By: #### U RCX #### [facility] [place] [facility] [address] [place] [address] Dr. Ramses Dumas MCH (RBC) [Entitic mass] 26.1 pg Critically low 26.7-34.0 [facility] Comment on above: Performed By: #### U RCX #### [facility] [place] [facility] [address] [place] [address] Dr. Ramses Dumas MCHC (RBC) [Mass/Vol] 32.0 g/dL Normal 29.9-35.2 [facility] Comment on above: Performed By: #### U RCX #### [facility] [place] [facility] [address] [place] [address] Dr. Ramses Dumas MCV (RBC) [Entitic vol] 81.8 fL Normal 81.0-99.0 [facility] Comment on above: Performed By: #### U RCX #### [facility] [place] [facility] [address] [place] [address] Dr. Ramses Dumas MONO # 0.6 103/ul Normal 0.3-0.8 [facility] Comment on above: Performed By: #### U RCX #### [facility] [place] [facility] [address] [place] [address] Dr. Ramses Dumas Monocytes/100 WBC (Bld) 5.9 % Normal 1.7-12.0 [facility] Comment on above: Performed By: #### U RCX #### [facility] [place] [facility] [address] [place] [address] Dr. Ramses Dumas NEUT # 8.2 103/ul Critically high 1.4-6.5 [facility] Comment on above: Performed By: #### U RCX #### [facility] [place] [facility] [address] [place] [address] Dr. Ramses Dumas Neutrophils/100 WBC (Bld) 86.7 % Critically high 43.0-75.0 [facility] Comment on above: Performed By: #### U RCX #### [facility] [place] [facility] [address] [address] [address] Ramses Dumas Platelet mean volume (Bld) [Entitic vol] 9.4 fL Critically low 9.5-13.5 [facility] Comment on above: Performed By: #### U RCX #### [facility] [place] [facility] [address] [place] [address] Dr. Ramses Dumas PLT 235 103/ul Normal 150-450 [facility] Comment on above: Performed By: #### U RCX #### [facility] [place] [facility] [address] [address] [address] Ramses Dumas RBC 4.17 106/ul Critically low 4.20-5.40 [facility] Comment on above: Performed By: #### U RCX #### [facility] [place] [facility] [address] [place] [address] Dr. Ramses Dumas WBC 9.5 103/ul Normal 4.0-11.0 [facility] Comment on above: Performed By: #### U RCX #### [facility] [place] [facility] [address] [place] [address] Dr. Ramses Dumas PROF 14(COMP METB)on 022 Albumin [Mass/Vol] 2.6 g/dL Critically low 3.4-5.0 [facility] Comment on above: Performed By: #### U KJ 24 #### [facility] [place] [facility] [address] [place] [address] Dr. Ramses Dumas Albumin/Globulin [Mass ratio] 0.8 {ratio} Normal [facility] Comment on above: Performed By: #### U KJ 24 #### [facility] [place] [facility] [address] [place] [address] Dr. Ramses Dumas ALP [Catalytic activity/Vol] 82 U/L Normal 46-116 [facility] Comment on above: Performed By: #### U KJ 24 #### [facility] [place] [facility] [address] [place] [address] Dr. Ramses Dumas ALT [Catalytic activity/Vol] 257 U/L Critically high 14-59 [facility] Comment on above: Performed By: #### U KJ 24 #### [facility] [place] [facility] [address] [address] [address] Ramses Dumas Anion gap [Moles/Vol] 10.3 mmol/L Normal [facility] Comment on above: Performed By: #### U KJ 24 #### [facility] [place] [facility] [address] [address] [address] Ramses Dumas AST [Catalytic activity/Vol] 196 U/L Critically high 15-37 [facility] Comment on above: Performed By: #### U KJ 24 #### [facility] [place] [facility] [address] [address] [address] Ramses Dumas Bilirubin [Mass/Vol] 0.5 mg/dL Normal 0.2-1.0 [facility] Comment on above: Performed By: #### U KJ 24 #### [facility] [place] [facility] [address] [place] [address] Dr. Ramses Dumas Calcium [Mass/Vol] 7.8 mg/dL Critically low 8.5-10.1 [facility] Comment on above: Performed By: #### U KJ 24 #### [facility] [place] [facility] [address] [address] [address] Ramses Dumas Chloride [Moles/Vol] 104 mmol/L Normal 98-107 [facility] Comment on above: Performed By: #### U KJ 24 #### [facility] [place] [facility] [address] [place] [address] Dr. Ramses Dumas CO2 [Moles/Vol] 24.4 mmol/L Normal 21.0-32.0 [facility] Comment on above: Performed By: #### U KJ 24 #### [facility] [place] [facility] [address] [address] [address] Ramses Dumas Creatinine [Mass/Vol] 1.09 mg/dL Critically high 0.55-1.02 [facility] Comment on above: Performed By: #### U KJ 24 #### [facility] [place] [facility] [address] [address] [address] Ramses Dumas EGFR-AF SRI LANKAN >60 Normal >=60 [facility] Comment on above: Performed By: #### U KJ 24 #### [facility] [place] [facility] [address] [address] [address] Ramses Dumas EGFR-NON AF SRI LANKAN 59 mL/min/1.73m2 Critically low >=60 [facility] Comment on above: Performed By: #### U KJ 24 #### [facility] [place] [facility] [address] [address] [address] Ramses Dumas Globulin (S) [Mass/Vol] 3.3 g/dL Normal [facility] Comment on above: Performed By: #### U KJ 24 #### [facility] [place] [facility] [address] [address] [address] Ramses Dumas Glucose [Mass/Vol] 143 mg/dL Critically high 74-106 [facility] Comment on above: Performed By: #### U KJ 24 #### [facility] [place] [facility] [address] [address] [address] Ramses Dumas Potassium [Moles/Vol] 3.7 mmol/L Normal 3.5-5.1 [facility] Comment on above: Performed By: #### U KJ 24 #### [facility] [place] [facility] [address] [address] [address] Ramses Dumas Protein [Mass/Vol] 5.9 g/dL Critically low 6.4-8.2 [facility] Comment on above: Performed By: #### U KJ 24 #### [facility] [place] [facility] [address] [address] [address] Ramses Dumas Sodium [Moles/Vol] 135 mmol/L Critically low 136-145 [facility] Comment on above: Performed By: #### U KJ 24 #### [facility] [place] [facility] [address] [address] [address] Ramses Dumas Urea nitrogen [Mass/Vol] 10.0 mg/dL Normal 7.0-18.0 [facility] Comment on above: Performed By: #### U KJ 24 #### [facility] [place] [facility] [address] [address] [address] Ramses Dumas Urea nitrogen/Creatinine [Mass ratio] 9.2 mg/mg Normal [facility] Comment on above: Performed By: #### U KJ 24 #### [facility] [place] [facility] [address] [address] [address] Ramses Dumas BLOOD CULTURE ID PANELon A. baumannii Not detected Normal NOT DETECTED [facility] Comment on above: Performed By: #### C VDTBH #### [facility] [place] [facility] [address] [place] [address] Dr. Ramses Dumas Bacteriodes fragilis Not detected Normal NOT DETECTED [facility] [place] [facility] Comment on above: Performed By: #### C VDTBH #### [facility] [place] [facility] [address] [place] [address] Dr. Ramses Dumas BCID CONTROLS PASSED Normal [facility] Comment on above: Performed By: #### C VDTBH #### [facility] [place] [facility] [address] [place] [address] Dr. Ramses SHEPPARDDBTHD BLOOD CULTURE BOTTLE INFORMATION Normal [facility] [place] [facility] Comment on above: Performed By: #### C VDTBH #### [facility] [place] [facility] [address] [place] [address] Dr. Ramses SHEPPARDDHD1 ANTIMICROBIAL RESISTANCE GENES Normal [facility] Comment on above: Performed By: #### C VDTBH #### [facility] [place] [facility] [address] [place] [address] Dr. Ramses SHEPPARDDHD2 SEE BELOW Elwin [facility] [place] [facility] Comment on above: Result Comment: Note : Antimicrobial resitance can occur via multiple mechanisms. A Not Detected result for the [employer] antomicrobial resistance gene assays does not indicate antimicrobial susceptibility. Subculturing is required for species identification and susceptibility testing of isolates. Performed By: #### C VDTBH #### [facility] [place] [facility] [address] [place] [address] Dr. Ramses Dumas BCIDHD3 Positive [facility] Comment on above: Performed By: #### C VDTBH #### [facility] [place] [facility] [address] [place] [address] Dr. Ramses SHEPPARDDHD4 Negative Normal [facility] Comment on above: Performed By: #### C VDTBH #### [facility] [place] [facility] [address] [place] [address] Dr. Ramses SHEPPARDDHD5 YEAST Normal [facility] Comment on above: Performed By: #### C VDTBH #### [facility] [place] [facility] [address] [place] [address] Dr. Ramses Garcia Set: Set 1 Normal [facility] Comment on above: Performed By: #### C VDTBH #### [facility] [place] [facility] [address] [place] [address] Dr. Ramses Dumas Bottle: Pediatric Normal [facility] Comment on above: Performed By: #### C VDTBH #### [facility] [place] [facility] [address] [address] [address] Ramses Dumas C. neoformans/gattii Not detected Normal NOT DETECTED [facility] Comment on above: Performed By: #### C VDTBH #### [facility] [place] [facility] [address] [place] [address] Dr. Ramses Dumas Kim albicans Not detected Normal NOT DETECTED [facility] Comment on above: Performed By: #### C VDTBH #### [facility] [place] [facility] [address] [place] [address] Dr. Ramses Dumas Kim auris Not detected Normal NOT DETECTED [facility] Comment on above: Performed By: #### C VDTBH #### [facility] [place] [facility] [address] [place] [address] Dr. Ramses Dumas Kim glabrata Not detected Normal NOT DETECTED [facility] Comment on above: Performed By: #### C VDTBH #### [facility] [place] [facility] [address] [place] [address] Dr. Ramses Dumas Kim Krusei Not detected Normal NOT DETECTED [facility] Comment on above: Performed By: #### C VDTBH #### [facility] [place] [facility] [address] [place] [address] Dr. Ramses Dumas Kim Parapsilosis Not detected Normal NOT DETECTED [facility] Comment on above: Performed By: #### C VDTBH #### [facility] [place] [facility] [address] [place] [address] Dr. Ramses Dumas Kim Tropicalis Not detected Normal NOT DETECTED [facility] Comment on above: Performed By: #### C VDTBH #### [facility] [place] [facility] [address] [place] [address] Dr. Ramses Dumas CTX-M Resistant Gene Not Applicable Normal NOT DETECTE D [facility] Comment on above: Performed By: #### C VDTBH #### [facility] [place] [facility] [address] [place] [address] Dr. Ramses Dumas E. Cloacae complex Not detected Normal NOT DETECTED [facility] Comment on above: Performed By: #### C VDTBH #### [facility] [place] [facility] [address] [place] [address] Dr. Ramses Dumas E. faecalis Not detected Normal NOT DETECTED [facility] Comment on above: Performed By: #### C VDTBH #### [facility] [place] [facility] [address] [place] [address] Dr. Ramses Dumas E. faecium Not detected Normal NOT DETECTED [facility] Comment on above: Performed By: #### C VDTBH #### [facility] [place] [facility] [address] [place] [address] Dr. Ramses Dumas Enterobacteriaceae Not detected Normal NOT DETECTED [facility] Comment on above: Performed By: #### C VDTBH #### [facility] [place] [facility] [address] [place] [address] Dr. Ramses Dumas Escherichia coli Not detected Normal NOT DETECTED [facility] [place] [facility] Comment on above: Performed By: #### C VDTBH #### [facility] [place] [facility] [address] [place] [address] Dr. Ramses Dumas H. influenzae Not detected Normal NOT DETECTED [facility] Comment on above: Performed By: #### C VDTBH #### [facility] [place] [facility] [address] [place] [address] Dr. Ramses Dumas IMP Resistant Gene Not Applicable Normal NOT DETECTED [facility] [place] [facility] Comment on above: Performed By: #### C VDTBH #### [facility] [place] [facility] [address] [place] [address] Dr. Ramses Dumas K. oxytoca Not detected Normal NOT DETECTED [facility] Comment on above: Performed By: #### C VDTBH #### [facility] [place] [facility] [address] [place] [address] Dr. Ramses Dumas K. pneumoniae Not detected Normal NOT DETECTED [facility] Comment on above: Performed By: #### C VDTBH #### [facility] [place] [facility] [address] [place] [address] Dr. Ramses Dumas Klebsiella aerogenes Not detected Normal NOT DETECTED [facility] Comment on above: Performed By: #### C VDTBH #### [facility] [place] [facility] [address] [place] [address] Dr. Ramses Dumas KPC Resistant Gene Not detected Normal NOT DETECTED [facility] Comment on above: Performed By: #### C VDTBH #### [facility] [place] [facility] [address] [place] [address] Dr. Ramses Dumas List. monocytogenes Not detected Normal NOT DETECTED [facility] Comment on above: Performed By: #### C VDTBH #### [facility] [place] [facility] [address] [place] [address] Dr. Ramses Dumas Mcr-1 Resistant Gene Not Applicable Normal NOT DETECTE D [facility] Comment on above: Performed By: #### C VDTBH #### [facility] [place] [facility] [address] [place] [address] Dr. Ramses Dumas mecA/C Not Applicable Normal NOT DETECTED [facility] Comment on above: Performed By: #### C VDTBH #### [facility] [place] [facility] [address] [place] [address] Dr. Ramses Dumas mecA/C MREJ Not Applicable Normal NOT DETECTED [facility] Comment on above: Performed By: #### C VDTBH #### [facility] [place] [facility] [address] [place] [address] Dr. Ramses Dumas N. meningitidis Not detected Normal NOT DETECTED [facility] Comment on above: Performed By: #### C VDTBH #### [facility] [place] [facility] [address] [place] [address] Dr. Ramses Dumas NDM Resistant Gene Not Applicable Normal NOT DETECTED [facility] Comment on above: Performed By: #### C VDTBH #### [facility] [place] [facility] [address] [place] [address] Dr. Ramses Dumas Oxa-48-like Not Applicable Normal NOT DETECTED [facility] Comment on above: Performed By: #### C VDTBH #### [facility] [place] [facility] [address] [place] [address] Dr. Ramses Dumas Proteus Not detected Normal NOT DETECTED [facility] Comment on above: Performed By: #### C VDTBH #### [facility] [place] [facility] [address] [place] [address] Dr. Ramses Dumas Pseud. aeruginosa Not detected Normal NOT DETECTED [facility] [place] [facility] Comment on above: Performed By: #### C VDTBH #### [facility] [place] [facility] [address] [place] [address] Dr. Ramses Dumas S. maltophilia Not detected Normal NOT DETECTED [facility] Comment on above: Performed By: #### C VDTBH #### [facility] [place] [facility] [address] [place] [address] Dr. Ramses Dumas Salmonella Not detected Normal NOT DETECTED [facility] Comment on above: Performed By: #### C VDTBH #### [facility] [place] [facility] [address] [place] [address] Dr. Ramses Dumas Seratia marcescens Not detected Normal NOT DETECTED [facility] Comment on above: Performed By: #### C VDTBH #### [facility] [place] [facility] [address] [place] [address] Dr. Ramses Dumas Site: unknown/not given Normal [facility] Comment on above: Performed By: #### C VDTBH #### [facility] [place] [facility] [address] [place] [address] Dr. Ramses Dumas Stapphillip. aureus Not detected Normal NOT DETECTED [facility] Comment on above: Performed By: #### C VDTBH #### [facility] [place] [facility] [address] [place] [address] Dr. Ramses Dumas Stapphillip. epidermidis Not detected Normal NOT DETECTED [facility] Comment on above: Performed By: #### C VDTBH #### [facility] [place] [facility] [address] [place] [address] Dr. Ramses Dumas Stapphillip. lugdunensis Not detected Normal NOT DETECTED [facility] Comment on above: Performed By: #### C VDTBH #### [facility] [place] [facility] [address] [place] [address] Dr. Ramses Dumas Staphylococcus Not detected Normal NOT DETECTED [facility] Comment on above: Performed By: #### C VDTBH #### [facility] [place] [facility] [address] [place] [address] Dr. Ramses Dumas Strep. agalactiae Detected Critically abnormal NOT DETECTED [facility] Comment on above: Performed By: #### C VDTBH #### [facility] [place] [facility] [address] [place] [address] Dr. Ramses Dumas Strep. pneumoniae Not detected Normal NOT DETECTED [facility] Comment on above: Performed By: #### C VDTBH #### [facility] [place] [facility] [address] [place] [address] Dr. Ramess Dumas Strep. pyogenes Not detected Normal NOT DETECTED [facility] Comment on above: Performed By: #### C VDTBH #### [facility] [place] [facility] [address] [place] [address] Dr. Ramses Dumas Streptococcus Detected Critically abnormal NOT DETECTED [facility] Comment on above: Performed By: #### C VDTBH #### [facility] [place] [facility] [address] [place] [address] Dr. Ramses Dumas Efrain/Ross Resist. Gene Not detected Normal NOT DETECTED [facility] Comment on above: Performed By: #### C VDTBH #### [facility] [place] [facility] [address] [place] [address] Dr. Ramses Dumas VIM Resistant Gene Not Applicable Normal NOT DETECTED [facility] Comment on above: Performed By: #### C VDTBH #### [facility] [place] [facility] [address] [place] [address] Dr. Ramses Dumas CBC AUTO DIFFon 08-22-2022 BASO # 0.1 103/ul Normal 0.0-0.1 [facility] Comment on above: Performed By: #### U KJ 24 #### [facility] [place] [facility] [address] [place] [address] Dr. Ramses Dumas Basophils/100 WBC (Bld) 0.7 % Normal 0.2-2.0 [facility] Comment on above: Performed By: #### U KJ 24 #### [facility] [place] [facility] [address] [place] [address] Dr. Ramses Dumas EO # 0.1 103/ul Normal 0.0-0.7 [facility] Comment on above: Performed By: #### U KJ 24 #### [facility] [place] [facility] [address] [place] [address] Dr. Ramses Dumas Eosinophils/100 WBC (Bld) 1.7 % Normal 0.9-7.0 [facility] Comment on above: Performed By: #### U KJ 24 #### [facility] [place] [facility] [address] [place] [address] Dr. Ramses Dumas Erythrocyte distribution width (RBC) [Ratio] 13.2 % Normal 11.0-15.0 [facility] Comment on above: Performed By: #### U KJ 24 #### [facility] [place] [facility] [address] [place] [address] Dr. Ramses Dumas Hematocrit (Bld) [Volume fraction] 39.8 % Normal 36.0-48.0 [facility] Comment on above: Performed By: #### U KJ 24 #### [facility] [place] [facility] [address] [place] [address] Dr. Ramses Dumas Hemoglobin (Bld) [Mass/Vol] 12.9 g/dL Normal 12.0-16.0 [facility] Comment on above: Performed By: #### U KJ 24 #### [facility] [place] [facility] [address] [place] [address] Dr. Ramses Dumas IG # 0.02 10e3/ul Normal 0.00-0.03 [facility] [place] [facility] Comment on above: Performed By: #### U KJ 24 #### [facility] [place] [facility] [address] [place] [address] Dr. Ramses Dumas IG % 0.2 % Normal 0.0-0.5 [facility] [place] [facility] Comment on above: Performed By: #### U JK 24 #### [facility] [place] [facility] [address] [place] [address] Dr. Ramses Dumas LYMPH # 3.2 103/ul Normal 1.2-3.8 [facility] Comment on above: Performed By: #### U KJ 24 #### [facility] [place] [facility] [address] [place] [address] Dr. Ramses Dumas Lymphocytes/100 WBC (Bld) 40.0 % Normal 20.5-60.0 [facility] Comment on above: Performed By: #### U KJ 24 #### [facility] [place] [facility] [address] [place] [address] Dr. Ramses Dumas MANUAL DIFF REQ NO Normal [facility] Comment on above: Performed By: #### U KJ 24 #### [facility] [place] [facility] [address] [place] [address] Dr. Ramses Dumas MCH (RBC) [Entitic mass] 26.6 pg Critically low 26.7-34.0 [facility] Comment on above: Performed By: #### U KJ 24 #### [facility] [place] [facility] [address] [place] [address] Dr. Ramses Dumas MCHC (RBC) [Mass/Vol] 32.4 g/dL Normal 29.9-35.2 [facility] Comment on above: Performed By: #### U KJ 24 #### [facility] [place] [facility] [address] [place] [address] Dr. Ramses Dumas MCV (RBC) [Entitic vol] 82.1 fL Normal 81.0-99.0 [facility] Comment on above: Performed By: #### U KJ 24 #### [facility] [place] [facility] [address] [place] [address] Dr. Ramses Dumas MONO # 0.6 103/ul Normal 0.3-0.8 [facility] Comment on above: Performed By: #### U KJ 24 #### [facility] [place] [facility] [address] [place] [address] Dr. Ramses Dumas Monocytes/100 WBC (Bld) 7.5 % Normal 1.7-12.0 [facility] Comment on above: Performed By: #### U KJ 24 #### [facility] [place] [facility] [address] [place] [address] Dr. Ramses Dumas NEUT # 4.0 103/ul Normal 1.4-6.5 [facility] [place] [facility] Comment on above: Performed By: #### U KJ 24 #### [facility] [place] [facility] [address] [place] [address] Dr. Ramses Dumas Neutrophils/100 WBC (Bld) 49.9 % Normal 43.0-75.0 [facility] Comment on above: Performed By: #### U KJ 24 #### [facility] [place] [facility] [address] [place] [address] Dr. Ramses Dumas Platelet mean volume (Bld) [Entitic vol] 9.3 fL Critically low 9.5-13.5 [facility] Comment on above: Performed By: #### U KJ 24 #### [facility] [place] [facility] [address] [place] [address] Dr. Ramses Dumas PLT 354 103/ul Normal 150-450 [facility] [place] [facility] Comment on above: Performed By: #### U KJ 24 #### [facility] [place] [facility] [address] [place] [address] Dr. Ramses Dumas RBC 4.85 106/ul Normal 4.20-5.40 [facility] [place] [facility] Comment on above: Performed By: #### U KJ 24 #### [facility] [place] [facility] [address] [place] [address] Dr. Ramses Dumas WBC 8.1 103/ul Normal 4.0-11.0 [facility] [place] [facility] Comment on above: Performed By: #### U KJ 24 #### [facility] [place] [facility] [address] [place] [address] ABD/PELVIS WO CONon 08-22 CT ABD/PELVIS WO CON EXAM: CT ABD/PELVIS WO CON 08/22/2022 5:16 AM EDT [id number] CLINICAL STATEMENT: CALCULUS OF KIDNEY COMPARISON: 06/03/2022 TECHNIQUE: Helically acquired images were obtained of the abdomen and pelvis without IV contrast. No oral contrast was administered. AEC is utilized. 2-D reconstructed images are provided. FINDINGS: There is a 1.4 cm suggesting calculus with mild left-sided hydronephrosis and hydroureter. Left perinephric fat stranding. Additional 6 mm nonobstructive right renal calculus. Hepatomegaly with fatty infiltration of the liver. Cholecystectomy. The upper abdominal solid organs are unremarkable. There is no bowel obstruction or free air. Ventral umbilical hernia containing omental fat. There is no ascites. There is no evidence of aortic aneurysm. There is no retroperitoneal adenopathy. There is no appendicitis or diverticulitis. There are no pelvic masses or loculated fluid collections. Uterus and bladder unremarkable. The lung bases are clear. There are no destructive bone lesions identified. IMPRESSION: 1.4 cm suggesting calculus with mild left-sided hydronephrosis and hydroureter. Left perinephric breast stranding. Additional 6 mm nonobstructive right renal calculus. Hepatomegaly with fatty infiltration of the liver. FOLLOW-UP: Follow-up as clinically indicated. Electronically authenticated by: KESHIA IRIZARRY Date: 2022-08-22 07:04 Normal [facility] [place] [facility]on SARS-CoV-2 (COVID-19) RNA FRANCESCA+probe Ql (Unsp spec) Not detected Normal NOT DETECTED [facility] [place] [facility] Comment on above: Result Comment: When diagnostic testing is negative, the possibility of a false negative should be considered in the context of a patient's recent exposures and the presence of clinical signs and symptoms consistent with SARS-CoV-2. This test is not yet approved or cleared by the [place] FDA. When there are no FDA-approved or cleared tests available, and other criteria are met, FDA can make tests available under an emergency access mechanism called an Emergency Use Authorization (EUA). The EUA for this test is supported by the [place] of Health and Human Service's declaration that circumstances exist to justify the emergency use of in vitro diagnostics for the detection and/or diagnosis of the virus that causes COVID-19. This EUA will remain in effect for the duration of the COVID-19 declaration justifying emergency of IVDs, unless it is terminated or revoked by the FDA (after which the test may no longer be used). Performed By: #### C MP #### [facility] [place] [facility] [address] [place] [address] Dr. Ramses Dumas ER URINE PROFILEon 2 Bilirubin Ql (U) Negative Normal NEGATIVE [facility] Comment on above: Performed By: #### U RCX #### [facility] [place] [facility] [address] [place] [address] Dr. Ramses Dumas Clarity (U) CLEAR Normal CLEAR [facility] [place] [facility] Comment on above: Performed By: #### U RCX #### [facility] [place] [facility] [address] [place] [address] Dr. Ramses Dumas Color (U) LT. YELLOW Normal YELLOW [facility] [place] [facility] Comment on above: Performed By: #### U RCX #### [facility] [place] [facility] [address] [place] [address] Dr. Ramses DELEON A micrscopic examination will be performed if indicated. Normal [facility] [place] [facility] Comment on above: Performed By: #### U RCX #### [facility] [place] [facility] [address] [place] [address] Dr. Ramses Dumas Glucose Ql (U) Negative Normal NEGATIVE [facility] Comment on above: Performed By: #### U RCX #### [facility] [place] [facility] [address] [place] [address] Dr. Ramses Dumas Hemoglobin Ql (U) SMALL Abnormal NEGATIVE [facility] Comment on above: Performed By: #### U RCX #### [facility] [place] [facility] [address] [place] [address] Dr. Ramses Dumas Ketones Ql (U) Negative Normal NEGATIVE [facility] Comment on above: Performed By: #### U RCX #### [facility] [place] [facility] [address] [place] [address] Dr. Ramses Dumas LEUKOCYTES SMALL Abnormal NEGATIVE [facility] Comment on above: Performed By: #### U RCX #### [facility] [place] [facility] [address] [place] [address] Dr. Ramses Dumas Nitrite Ql (U) Negative Normal NEGATIVE [facility] Comment on above: Performed By: #### U RCX #### [facility] [place] [facility] [address] [place] [address] Dr. Ramses Dumas pH (U) 7.0 [pH] Normal 5-9 [facility] [place] [facility] Comment on above: Performed By: #### U RCX #### [facility] [place] [facility] [address] [place] [address] Dr. Ramses Dumas Protein (U) [Mass/Vol] 30 mg/dL Abnormal NEGAT CHRIS/ TRACE [facility] Comment on above: Performed By: #### U RCX #### [facility] [place] [facility] [address] [place] [address] Dr. Ramses Dumas SPEC GRAVITY 1.020 Normal 1.005-<=1.02 5 [facility] Comment on above: Performed By: #### U RCX #### [facility] [place] [facility] [address] [place] [address] Dr. Ramses Dumas UR MICRO IND INDICATED Normal [facility] Comment on above: Performed By: #### U RCX #### [facility] [place] [facility] [address] [place] [address] Dr. Ramses Dumas Urobilinogen Qn (U) 0.2 {Lucero'U}/dL Normal 0.2 - 1. 0 [facility] Comment on above: Performed By: #### U RCX #### [facility] [place] [facility] [address] [place] [address] Dr. Ramses Dumas LACTATE/LACTIC ACIDon 2021 Lactate [Moles/Vol] 2.3 mmol/L Critically high 0.4-1.9 [facility] Comment on above: Performed By: #### U RCX #### [facility] [place] [facility] [address] [place] [address] Dr. Ramses Dumas URon 08-22-2022 , QUAL Negative Normal NEGATIVE [facility] Comment on above: Performed By: #### U RCX #### [facility] [place] [facility] [address] [place] [address] Dr. Ramses Dumsa PROF 14(COMP METB)on 022 Albumin [Mass/Vol] 3.5 g/dL Normal 3.4-5.0 [facility] Comment on above: Performed By: #### U RCX #### [facility] [place] [facility] [address] [place] [address] Dr. Ramses Dumas Albumin/Globulin [Mass ratio] 0.9 {ratio} Normal [facility] Comment on above: Performed By: #### U RCX #### [facility] [place] [facility] [address] [address] [address] Ramses Dumas ALP [Catalytic activity/Vol] 92 U/L Normal 46-116 [facility] Comment on above: Performed By: #### U RCX #### [facility] [place] [facility] [address] [address] [address] Ramses Dumas ALT [Catalytic activity/Vol] 139 U/L Critically high 14-59 [facility] Comment on above: Performed By: #### U RCX #### [facility] [place] [facility] [address] [address] [address] Ramses Dumas Anion gap [Moles/Vol] 10.2 mmol/L Normal [facility] Comment on above: Performed By: #### U RCX #### [facility] [place] [facility] [address] [address] [address] Ramses Dumas AST [Catalytic activity/Vol] 112 U/L Critically high 15-37 [facility] Comment on above: Performed By: #### U RCX #### [facility] [place] [facility] [address] [address] [address] Ramses Dumas Bilirubin [Mass/Vol] 0.2 mg/dL Normal 0.2-1.0 [facility] Comment on above: Performed By: #### U RCX #### [facility] [place] [facility] [address] [address] [address] Ramses Dumas Calcium [Mass/Vol] 8.8 mg/dL Normal 8.5-10.1 [facility] Comment on above: Performed By: #### U RCX #### [facility] [place] [facility] [address] [address] [address] Ramses Dumas Chloride [Moles/Vol] 105 mmol/L Normal 98-107 [facility] Comment on above: Performed By: #### U RCX #### [facility] [place] [facility] [address] [address] [address] Ramses Dumas CO2 [Moles/Vol] 26.3 mmol/L Normal 21.0-32.0 [facility] Comment on above: Performed By: #### U RCX #### [facility] [place] [facility] [address] [address] [address] Ramses Dumas Creatinine [Mass/Vol] 0.95 mg/dL Normal 0.55-1.02 [facility] Comment on above: Performed By: #### U RCX #### [facility] [place] [facility] [address] [address] [address] Ramses Dumas EGFR-AF SRI LANKAN >60 Normal >=60 [facility] Comment on above: Performed By: #### U RCX #### [facility] [place] [facility] [address] [address] [address] Ramses Dumas EGFR-NON AF SRI LANKAN >60 Normal >=60 [facility] Comment on above: Performed By: #### U RCX #### [facility] [place] [facility] [address] [address] [address] Ramses Dumas Globulin (S) [Mass/Vol] 3.9 g/dL Normal [facility] Comment on above: Performed By: #### U RCX #### [facility] [place] [facility] [address] [address] [address] Ramses Dumas Glucose [Mass/Vol] 137 mg/dL Critically high 74-106 [facility] Comment on above: Performed By: #### U RCX #### [facility] [place] [facility] [address] [place] [address] Dr. Ramses Dumas Potassium [Moles/Vol] 3.5 mmol/L Normal 3.5-5.1 [facility] Comment on above: Performed By: #### U RCX #### [facility] [place] [facility] [address] [address] [address] Ramses Dumas Protein [Mass/Vol] 7.4 g/dL Normal 6.4-8.2 [facility] Comment on above: Performed By: #### U RCX #### [facility] [place] [facility] [address] [place] [address] Dr. Ramses Dumas Sodium [Moles/Vol] 138 mmol/L Normal 136-145 [facility] Comment on above: Performed By: #### U RCX #### [facility] [place] [facility] [address] [place] [address] Dr. Ramses Dumas Urea nitrogen [Mass/Vol] 11.0 mg/dL Normal 7.0-18.0 [facility] [place] [facility] Comment on above: Performed By: #### U RCX #### [facility] [place] [facility] [address] [place] [address] Dr. Ramses Dumas Urea nitrogen/Creatinine [Mass ratio] 11.6 mg/mg Normal [facility] [place] [facility] Comment on above: Performed By: #### U RCX #### [facility] [place] [facility] [address] [place] [address] Dr. Ramses Dumas URINE MICROSCOPIC ONLYon BACTERIA LARGE Abnormal NONE SEEN [facility] [place] [facility] Comment on above: Performed By: #### U RCX #### [facility] [place] [facility] [address] [place] [address] Dr. Ramses Dumas Bacteria identified Cx Nom (U) CX ALREADY ORDERED Normal [facility] [place] [facility] Comment on above: Performed By: #### U RCX #### [facility] [place] [facility] [address] [place] [address] Dr. Ramses Dumas CAST NONE SEEN Normal NONE SEEN [facility] [place] [facility] Comment on above: Performed By: #### U RCX #### [facility] [place] [facility] [address] [place] [address] Dr. Ramses Dumas Crystals LM Nom (Urine sed) NONE SEEN Normal NONE SEEN [facility] [place] [facility] Comment on above: Performed By: #### U RCX #### [facility] [place] [facility] [address] [place] [address] Dr. Ramses Dumas Epithelial cells LM Ql (Urine sed) MANY Abnormal NONE SEEN /RARE [facility] [place] [facility] Comment on above: Performed By: #### U RCX #### [facility] [place] [facility] [address] [place] [address] Dr. Ramses Dumas MUCOUS NONE SEEN Normal NONE SEEN [facility] [place] [facility] Comment on above: Performed By: #### U RCX #### [facility] [place] [facility] [address] [place] [address] Dr. Ramses Dumas RBC 5-10 Abnormal 0-2 [facility] [place] [facility] Comment on above: Performed By: #### U RCX #### [facility] [place] [facility] [address] [place] [address] Dr. Ramses Dumas WBC 50-75 Abnormal NONE SEEN [facility] [place] [facility] Comment on above: Performed By: #### U RCX #### [facility] [place] [facility] [address] [address] [address] Ramses Dumas CULTURE URINEon 08-15-2022 CULTURE URINE Isolate 1 Streptococcus agalactiae >100,000 cfu/mL of ORGANISM 1 Streptococcus agalactiae ANTIBIOTIC M.I.C RX STATUS Benzylpenicillin <=0.06 S F Ampicillin <=0.25 S F Cefotaxime <=0.12 S F Ceftriaxone <=0.12 S F Levofloxacin 0.5 S F Erythromycin >=8 R F Clindamycin >=1 R F Linezolid <=2 S F Vancomycin 0.5 S F Tetracycline >=16 R F Normal [facility] [place] [facility] Comment on above: Performed By: #### U RCX #### [facility] [place] [facility] [address] [place] [address] Dr. Ramses Dumas Lipid Panelon 08-14-2022 Cholesterol [Mass/Vol] 162 mg/dL Normal 140-200 [facility] Comment on above: Result Comment: Chol less than 200 mg/dl low risk Chol 201-239 mg/dl borderline risk Chol 240 mg/dl and greater high risk Performed By: #### L IPID, TSH3 wRFLX, [id number] #### [facility] [address] [place] [address] [place] Cholesterol in HDL [Mass/Vol] 42 mg/dL Normal 35-85 [facility] Comment on above: Result Comment: HDL CHOL ATP-III CLASSIFICATION Cardiovascular Risk HDL > or equal to 60 mg/dL LOW HDL < 40 mg/dL HIGH Performed By: #### L IPID, TSH3 wRFLX, [id number] #### [facility] [address] [place] [address] [facility] Cholesterol.total/Chol esterol in HDL [Mass ratio] 3.9 {ratio} Normal <5.0 [facility] Comment on above: Performed By: #### L IPID, TSH3 wRFLX, [id number] #### [facility] [address] [id number] [place] LDL Cholesterol,Calculated 108 mg/dL High 0-100 [facility] Comment on above: Result Comment: LDL ATP III CLASSIFICATION LDL less than 100 mg/dL Optimal LDL 100-129 mg/dL Near or above optimal LDL 130-159 mg/dL Borderline high LDL 160-189 mg/dL High LDL greater than 189 mg/dL Very high Performed By: #### L IPID, TSH3 wRFLX, [id number] #### [facility] [address] Triglyceride w/Reflex 59 mg/dL Normal 35-149 [facility] Comment on above: Result Comment: TRIG ATP III CLASSIFICATION TRIG less than 150 mg/dL Normal TRIG 150-199 mg/dL Borderline high TRIG 200-500 mg/dL High TRIG greater than 500 mg/dL Very high Standard traceable to the Center for Disease Conrtrol and Prevention (CDC) test method. Performed By: #### L IPID, TSH3 wRFLX, [id number] #### [facility] [address] VLDL CHOLESTEROL 11 mg/dL Normal [facility] Comment on above: Performed By: #### L IPID, TSH3 wRFLX, [id number] #### [facility] [address] [id number] [facility] Thyroid Stim Hormone w/Rflxo n 08-14-2022 Thyroid Stim Hormone w/Rflx 0.84 u[iU]/mL Normal 0.45-5.33 [facility] Comment on above: Performed By: #### L IPID, TSH3 wRFLX, [id number] #### [facility] [address] [id number] [facility] Vitamin D 25 Hydroxy Totalon 08-14-2022 Vitamin D 25 Hydroxy Total 17.7 ng/mL Low 30-100 [facility] Comment on above: Result Comment: THA MIN D STATUS 25(OH)VITAMIN D RANGE (ng/mL) Deficient <20 Insufficient 20 to <30 Sufficient 30 to 100 Reference: José Miguel MF,Jennifer NC, Mady MARTI, et al. Evaluation,treatment, and prevention of vitamin D deficiency; an Endocrine Society clinical practice guideline. JCEM. 2010; 96(7):1911-30. PERFORMED BY: [place] [address] PATHOLOGIST [employer]INE[employer] AB ALCANTARA M.D. Performed By: #### L IPID, TSH3 wRFLX, [id number] #### [address] ACETAMINOPHENon 08-13-2022 Acetaminophen [Mass/Vol] ug/mL Critically low 10.0-30.0 [facility] Comment on above: Performed By: #### U RCX #### [facility] [place] [facility] [address] [place] [address] Dr. Ramses Dumas CBC AUTO DIFFon 08-13-2022 BASO # 0.1 103/ul Normal 0.0-0.1 [facility] Comment on above: Performed By: #### C VDTBH #### [facility] [place] [facility] [address] [place] [address] Dr. Ramses Dumas Basophils/100 WBC (Bld) 0.8 % Normal 0.2-2.0 [facility] Comment on above: Performed By: #### C VDTBH #### [facility] [place] [facility] [address] [place] [address] Dr. Ramses Dumas EO # 0.1 103/ul Normal 0.0-0.7 [facility] Comment on above: Performed By: #### C VDTBH #### [facility] [place] [facility] [address] [place] [address] Dr. Ramses Dumas Eosinophils/100 WBC (Bld) 1.6 % Normal 0.9-7.0 [facility] Comment on above: Performed By: #### C VDTBH #### [facility] [place] [facility] [address] [place] [address] Dr. Ramses Dumas Erythrocyte distribution width (RBC) [Ratio] 13.3 % Normal 11.0-15.0 [facility] Comment on above: Performed By: #### C VDTBH #### [facility] [place] [facility] [address] [place] [address] Dr. Ramses Dumas Hematocrit (Bld) [Volume fraction] 40.6 % Normal 36.0-48.0 [facility] Comment on above: Performed By: #### C VDTBH #### [facility] [place] [facility] [address] [place] [address] Dr. Ramses Dumas Hemoglobin (Bld) [Mass/Vol] 13.2 g/dL Normal 12.0-16.0 [facility] Comment on above: Performed By: #### C VDTBH #### [facility] [place] [facility] [address] [place] [address] Dr. Ramses Dumas IG # 0.01 10e3/ul Normal 0.00-0.03 [facility] Comment on above: Performed By: #### C VDTBH #### [facility] [place] [facility] [address] [place] [address] Dr. Ramses Dumas IG % 0.2 % Normal 0.0-0.5 [facility] Comment on above: Performed By: #### C VDTBH #### [facility] [place] [facility] [address] [place] [address] Dr. Ramses Dumas LYMPH # 2.4 103/ul Normal 1.2-3.8 [facility] Comment on above: Performed By: #### C VDTBH #### [facility] [place] [facility] [address] [place] [address] Dr. Ramses Dumas Lymphocytes/100 WBC (Bld) 37.7 % Normal 20.5-60.0 [facility] Comment on above: Performed By: #### C VDTBH #### [facility] [place] [facility] [address] [place] [address] Dr. Ramses Dumas MANUAL DIFF REQ NO Normal [facility] Comment on above: Performed By: #### C VDTBH #### [facility] [place] [facility] [address] [place] [address] Dr. Ramses Dumas MCH (RBC) [Entitic mass] 26.7 pg Normal 26.7-34.0 [facility] Comment on above: Performed By: #### C VDTBH #### [facility] [place] [facility] [address] [place] [address] Dr. Ramses Dumas MCHC (RBC) [Mass/Vol] 32.5 g/dL Normal 29.9-35.2 [facility] Comment on above: Performed By: #### C VDTBH #### [facility] [place] [facility] [address] [place] [address] Dr. Ramses Dumas MCV (RBC) [Entitic vol] 82.0 fL Normal 81.0-99.0 [facility] Comment on above: Performed By: #### C VDTBH #### [facility] [place] [facility] [address] [place] [address] Dr. Ramses Dumas MONO # 0.6 103/ul Normal 0.3-0.8 [facility] [place] [facility] Comment on above: Performed By: #### C VDTBH #### [facility] [place] [facility] [address] [place] [address] Dr. Ramses Dumas Monocytes/100 WBC (Bld) 8.6 % Normal 1.7-12.0 [facility] Comment on above: Performed By: #### C VDTBH #### [facility] [place] [facility] [address] [place] [address] Dr. Ramses Dumas NEUT # 3.3 103/ul Normal 1.4-6.5 [facility] Comment on above: Performed By: #### C VDTBH #### [facility] [place] [facility] [address] [place] [address] Dr. Ramses Dumas Neutrophils/100 WBC (Bld) 51.1 % Normal 43.0-75.0 The [facility] [place] [facility] Comment on above: Performed By: #### C VDTBH #### [facility] [place] [facility] [address] [place] [address] Dr. Ramses Dumas Platelet mean volume (Bld) [Entitic vol] 8.7 fL Critically low 9.5-13.5 [facility] [place] [facility] Comment on above: Performed By: #### C VDTBH #### [facility] [place] [facility] [address] [place] [address] Dr. Ramses Dumas PLT 409 103/ul Normal 150-450 [facility] [place] [facility] Comment on above: Performed By: #### C VDTBH #### [facility] [place] [facility] [address] [place] [address] Dr. Ramses Dumas RBC 4.95 106/ul Normal 4.20-5.40 [facility] Comment on above: Performed By: #### C VDTBH #### [facility] [place] [facility] [address] [place] [address] Dr. Ramses Dumas WBC 6.4 103/ul Normal 4.0-11.0 [facility] Comment on above: Performed By: #### C VDTBH #### [facility] [place] [facility] [address] [place] [address] Dr. Ramses Dumas Covid-19 PCR ([facility])on 07-20 SARS-CoV-2 (COVID-19) RNA FRANCESCA+probe Ql (Unsp spec) Not detected Normal NOT DETECTED [facility] [place] [facility] Comment on above: Result Comment: When diagnostic testing is negative, the possibility of a false negative should be considered in the context of a patient's recent exposures and the presence of clinical signs and symptoms consistent with SARS-CoV-2. This test is not yet approved or cleared by the [place] FDA. When there are no FDA-approved or cleared tests available, and other criteria are met, FDA can make tests available under an emergency access mechanism called an Emergency Use Authorization (EUA). The EUA for this test is supported by the Insurance Billing Specialist of Health and Human Service's declaration that circumstances exist to justify the emergency use of in vitro diagnostics for the detection and/or diagnosis of the virus that causes COVID-19. This EUA will remain in effect for the duration of the COVID-19 declaration justifying emergency of IVDs, unless it is terminated or revoked by the FDA (after which the test may no longer be used). Performed By: #### C VDTBH #### [facility] [place] [facility] [address] [place] [address] Dr. Ramses Dumas DRUG SCREEN RAPID (URINE)on 08-13-2022 AMP Negative Normal NEGATIVE [facility] Comment on above: Performed By: #### C BC #### [facility] [place] [facility] [address] [place] [address] Dr. Ramses Dumas BAR Negative Normal NEGATIVE [facility] [place] [facility] Comment on above: Performed By: #### C BC #### [facility] [place] [facility] [address] [place] [address] Dr. Ramses Dumas BUP Negative Normal NEGATIVE [facility] Comment on above: Performed By: #### C BC #### [facility] [place] [facility] [address] [place] [address] Dr. Ramses Dumas BZO Negative Normal NEGATIVE [facility] Comment on above: Performed By: #### C BC #### [facility] [place] [facility] [address] [place] [address] Dr. Ramses Dumas ODILIA Negative Normal NEGATIVE [facility] Comment on above: Performed By: #### C BC #### [facility] [place] [facility] [address] [place] [address] Dr. Ramses Dumas CUT-OFFS SEE BELOW Normal [facility] Comment on above: Result Comment: AMP (Amphetamine): 500ng/mL, BAR (Barbituates): 200 ng/mL, BZO (Benzodiazepines): 150 ng/mL, BUP (Buprenorphine): 10 ng/mL, ODILIA (Cocaine): 150 ng/mL, mAMP (Methamphetamine): 500 ng/mL, MTD (Methadone): 200 ng/mL, OPI (Opiates): 100 ng/mL, OXY (Oxycodone): 100 ng/mL, PCP (Phencyclidine): 25 ng/mL, PPX (Propoxyphene): 300 ng/mL, THC (Cannabinoids): 50 ng/mL, TCA (Trycyclic Antidepressants): 300 ng/mL Performed By: #### C BC #### [facility] [place] [facility] [address] [place] [address] Dr. Ramses Dumas DRUG CUT HEADER DRUG CLASS TEST SYSTEM CUT-OFF CONCENTRATIONS ARE FOLLOWS: Normal [facility] Comment on above: Performed By: #### C BC #### [facility] [place] [facility] [address] [place] [address] Dr. Ramses Dumas mAMP Negative Normal NEGATIVE [facility] Comment on above: Performed By: #### C BC #### [facility] [place] [facility] [address] [place] [address] Dr. Ramses Dumas MTD Negative Normal NEGATIVE [facility] Comment on above: Performed By: #### C BC #### [facility] [place] [facility] [address] [place] [address] Dr. Ramses Dumas OPI Negative Normal NEGATIVE [facility] Comment on above: Performed By: #### C BC #### [facility] [place] [facility] [address] [place] [address] Dr. Ramses Dumas OXY Negative Normal NEGATIVE [facility] Comment on above: Performed By: #### C BC #### [facility] [place] [facility] [address] [place] [address] Dr. Ramses Dumas PCP Negative Normal NEGATIVE [facility] Comment on above: Performed By: #### C BC #### [facility] [place] [facility] [address] [place] [address] Dr. Ramses Dumas PPX Negative Normal NEGATIVE [facility] Comment on above: Performed By: #### C BC #### [facility] [place] [facility] [address] [place] [address] Dr. Ramses Dumas TCA Negative Normal NEGATIVE [facility] Comment on above: Performed By: #### C BC #### [facility] [place] [facility] [address] [place] [address] Dr. Ramses Dumas THC Negative Normal NEGATIVE [facility] Comment on above: Performed By: #### C BC #### [facility] [place] [facility] [address] [place] [address] Dr. Ramses Dumas ER URINE PROFILEon 2 Bilirubin Ql (U) Negative Normal NEGATIVE [facility] Comment on above: Performed By: #### C BC #### [facility] [place] [facility] [address] [place] [address] Dr. Ramses Dumas Clarity (U) CLEAR Normal CLEAR [facility] Comment on above: Performed By: #### C BC #### [facility] [place] [facility] [address] [place] [address] Dr. Ramses Dumas Color (U) LT. YELLOW Normal YELLOW [facility] Comment on above: Performed By: #### C BC #### [facility] [place] [facility] [address] [place] [address] Dr. Ramses DELEON A micrscopic examination will be performed if indicated. Normal [facility] [place] [facility] Comment on above: Performed By: #### C BC #### [facility] [place] [facility] [address] [place] [address] Dr. Ramses Dumas Glucose Ql (U) Negative Normal NEGATIVE [facility] Comment on above: Performed By: #### C BC #### [facility] [place] [facility] [address] [place] [address] Dr. Ramses Dumas Hemoglobin Ql (U) LARGE Abnormal NEGATIVE [facility] Comment on above: Performed By: #### C BC #### [facility] [place] [facility] [address] [place] [address] Dr. Ramses Dumas Ketones Ql (U) Negative Normal NEGATIVE [facility] Comment on above: Performed By: #### C BC #### [facility] [place] [facility] [address] [place] [address] Dr. Ramses Dumas LEUKOCYTES LARGE Abnormal NEGATIVE [facility] Comment on above: Performed By: #### C BC #### [facility] [place] [facility] [address] [place] [address] Dr. Ramses Dumas Nitrite Ql (U) Positive Abnormal NEGATIVE [facility] Comment on above: Performed By: #### C BC #### [facility] [place] [facility] [address] [place] [address] Dr. Ramses Dumas pH (U) 6.0 [pH] Normal 5-9 [facility] Comment on above: Performed By: #### C BC #### [facility] [place] [facility] [address] [place] [address] Dr. Ramses Dumas Protein (U) [Mass/Vol] 30 mg/dL Abnormal NEGAT CHRIS/ TRACE [facility] Comment on above: Performed By: #### C BC #### [facility] [place] [facility] [address] [place] [address] Dr. Ramses Dumas SPEC GRAVITY >=1.030 Abnormal 1.005-<=1.02 5 [facility] Comment on above: Performed By: #### C BC #### [facility] [place] [facility] [address] [place] [address] Dr. Ramses Dumas UR MICRO IND INDICATED Normal [facility] Comment on above: Performed By: #### C BC #### [facility] [place] [facility] [address] [place] [address] Dr. Ramses Dumas Urobilinogen Qn (U) 0.2 {Lucero'U}/dL Normal 0.2 - 1. 0 [facility] Comment on above: Performed By: #### C BC #### [facility] [place] [facility] [address] [place] [address] Dr. Ramses Dumas ETHANOL (BLD ALC)on 08-13-20 22 ALC NOTE NOTE: 80 mg/dl is th e legal limit for a blood alcohol level Normal [facility] Comment on above: Performed By: #### B LDCX2 #### [facility] [place] [facility] [address] [place] [address] Dr. Ramses Dumas Ethanol [Mass/Vol] mg/dL Normal [facility] Comment on above: Performed By: #### B LDCX2 #### [facility] [place] [facility] [address] [place] [address] Dr. Ramses Dumas URon 08-13-2022 , QUAL Negative Normal NEGATIVE [facility] Comment on above: Performed By: #### C BC #### [facility] [place] [facility] [address] [place] [address] Dr. Ramses Dumas PROF 14(COMP METB)on 022 Albumin [Mass/Vol] 3.8 g/dL Normal 3.4-5.0 [facility] Comment on above: Performed By: #### U RCX #### [facility] [place] [facility] [address] [place] [address] Dr. Ramses Dumas Albumin/Globulin [Mass ratio] 0.9 {ratio} Normal [facility] Comment on above: Performed By: #### U RCX #### [facility] [place] [facility] [address] [place] [address] Dr. Ramses Dumas ALP [Catalytic activity/Vol] 82 U/L Normal 46-116 [facility] [place] [facility] Comment on above: Performed By: #### U RCX #### [facility] [place] [facility] [address] [place] [address] Dr. Ramses Dumas ALT [Catalytic activity/Vol] 41 U/L Normal 14-59 [facility] [place] [facility] Comment on above: Performed By: #### U RCX #### [facility] [place] [facility] [address] [place] [address] Dr. Ramses Dumas Anion gap [Moles/Vol] 9.3 mmol/L Normal [facility] Comment on above: Performed By: #### U RCX #### [facility] [place] [facility] [address] [place] [address] Dr. Ramses Dumas AST [Catalytic activity/Vol] 21 U/L Normal 15-37 [facility] Comment on above: Performed By: #### U RCX #### [facility] [place] [facility] [address] [address] [address] Ramses Dumas Bilirubin [Mass/Vol] 0.3 mg/dL Normal 0.2-1.0 [facility] Comment on above: Performed By: #### U RCX #### [facility] [place] [facility] [address] [place] [address] Dr. Ramses Dumas Calcium [Mass/Vol] 8.9 mg/dL Normal 8.5-10.1 [facility] Comment on above: Performed By: #### U RCX #### [facility] [place] [facility] [address] [place] [address] Dr. Ramses Dumas Chloride [Moles/Vol] 105 mmol/L Normal 98-107 [facility] Comment on above: Performed By: #### U RCX #### [facility] [place] [facility] [address] [place] [address] Dr. Ramses Dumas CO2 [Moles/Vol] 28.5 mmol/L Normal 21.0-32.0 [facility] Comment on above: Performed By: #### U RCX #### [facility] [place] [facility] [address] [place] [address] Dr. Ramses Dumas Creatinine [Mass/Vol] 0.81 mg/dL Normal 0.55-1.02 [facility] Comment on above: Performed By: #### U RCX #### [facility] [place] [facility] [address] [place] [address] Dr. Ramses Dumas EGFR-AF SRI LANKAN >60 Normal >=60 [facility] Comment on above: Performed By: #### U RCX #### [facility] [place] [facility] [address] [place] [address] Dr. Ramses Dumas EGFR-NON AF SRI LANKAN >60 Normal >=60 [facility] Comment on above: Performed By: #### U RCX #### [facility] [place] [facility] [address] [place] [address] Dr. Ramses Dumas Globulin (S) [Mass/Vol] 4.1 g/dL Normal [facility] Comment on above: Performed By: #### U RCX #### [facility] [place] [facility] [address] [address] [address] Ramses Dumas Glucose [Mass/Vol] 100 mg/dL Normal 74-106 [facility] Comment on above: Performed By: #### U RCX #### [facility] [place] [facility] [address] [place] [address] Dr. Ramses Dumas Potassium [Moles/Vol] 3.8 mmol/L Normal 3.5-5.1 [facility] Comment on above: Performed By: #### U RCX #### [facility] [place] [facility] [address] [place] [address] Dr. Ramses Dumas Protein [Mass/Vol] 7.9 g/dL Normal 6.4-8.2 [facility] Comment on above: Performed By: #### U RCX #### [facility] [place] [facility] [address] [place] [address] Dr. Ramses Dumas Sodium [Moles/Vol] 139 mmol/L Normal 136-145 [facility] Comment on above: Performed By: #### U RCX #### [facility] [place] [facility] [address] [place] [address] Dr. Ramses Dumas Urea nitrogen [Mass/Vol] 10.0 mg/dL Normal 7.0-18.0 [facility] Comment on above: Performed By: #### U RCX #### [facility] [place] [facility] [address] [place] [address] Dr. Ramses Dumas Urea nitrogen/Creatinine [Mass ratio] 12.3 mg/mg Normal [facility] Comment on above: Performed By: #### U RCX #### [facility] [place] [facility] [address] [place] [address] Dr. Ramses Dumas SALICYLATEon 08-13-2022 SALICYLATE <2.8 Normal <=19.9 [facility] [place] [facility] Comment on above: Performed By: #### U RCX #### [facility] [place] [facility] [address] [place] [address] Dr. Ramses Dumas URINE MICROSCOPIC ONLYon BACTERIA LARGE Abnormal NONE SEEN [facility] [place] [facility] Comment on above: Performed By: #### C BC #### [facility] [place] [facility] [address] [place] [address] Dr. Ramses Dumas Bacteria identified Cx Nom (U) INDICATED Normal [facility] [place] [facility] Comment on above: Performed By: #### C BC #### [facility] [place] [facility] [address] [place] [address] Dr. Ramses Dumas CA OX CRYSTALS RARE Normal [facility] Comment on above: Performed By: #### C BC #### [facility] [place] [facility] [address] [place] [address] Dr. Ramses Dumas CAST NONE SEEN Normal NONE SEEN [facility] Comment on above: Performed By: #### C BC #### [facility] [place] [facility] [address] [place] [address] Dr. Ramses Dumas Crystals LM Nom (Urine sed) SEEN Abnormal NONE SEEN [facility] Comment on above: Performed By: #### C BC #### [facility] [place] [facility] [address] [place] [address] Dr. Ramses Dumas Epithelial cells LM Ql (Urine sed) MODERATE Abnormal NONE SEEN /RARE [facility] [place] [facility] Comment on above: Performed By: #### C BC #### [facility] [place] [facility] [address] [place] [address] Dr. Ramses Dumas MUCOUS NONE SEEN Normal NONE SEEN [facility] [place] [facility] Comment on above: Performed By: #### C BC #### [facility] [place] [facility] [address] [place] [address] Dr. Ramses Dumas RBC 10-20 Abnormal 0-2 [facility] [place] [facility] Comment on above: Performed By: #### C BC #### [facility] [place] [facility] [address] [place] [address] Dr. Ramses Dumas WBC 20-50 Abnormal NONE SEEN [facility] Comment on above: Performed By: #### C BC #### [facility] [place] [facility] [address] [address] [address] Ramses Dumas Pap IG,rfx Aptima HPV all pt hon 08-09-2022 . . Normal [facility] Comment on above: Performed By: #### C MP #### [facility] [place] [facility] [address] [address] [address] Ramses Dumas DIAGNOSIS: Comment Abnormal [facility] Comment on above: Result Comment: EPIT HELIAL CELL ABNORMALITY. LOW GRADE SQUAMOUS INTRAEPITHELIAL LESION (LSIL). Performed By: #### C MP #### [facility] [place] [facility] [address] [address] [address] Ramses Dumas Electronically signed by: Comment Normal [facility] Comment on above: Result Comment: Arnaud Joseph MD, Pathologist Performed By: #### C MP #### [facility] [place] [facility] [address] [place] [address] Dr. Ramses Dumas HPV Aptima Negative Normal Negative [facility] Comment on above: Result Comment: This nucleic acid amplification test detects fourteen high-risk HPV types (16,18,31,33,35,39,45,51,52,56,58,59,66,68) without differentiation. Performed By: #### C MP #### [facility] [place] [facility] [address] [place] [address] Dr. Ramses Dumas Methodology: Comment Normal [facility] Comment on above: Result Comment: This liquid based ThinPrep(R) pap test was screened with the use of an image guided system. Performed By: #### C MP #### [facility] [place] [facility] [address] [address] [address] Ramses Dumas Note: Comment Normal [facility] Comment on above: Result Comment: The Pap smear is a screening test designed to aid in the detection of premalignant and malignant conditions of the uterine cervix. It is not a diagnostic procedure and should not be used as the sole means of detecting cervical cancer. Both false-positive and false-negative reports do occur. . Performed By: #### C MP #### [facility] [place] [facility] [address] [place] [address] Dr. Ramses Dumas Pathologist Provided ICD10 Comment Normal [facility] Comment on above: Result Comment: [id number] Performed By: #### C MP #### [facility] [place] [facility] [address] [place], [place] [address] Dr. Ramses Dumas Performed by: Comment Normal [facility] Comment on above: Result Comment: Gail Ruano, Terminologist (ASCP) Performed By: #### C MP #### [facility] [place] [facility] [address] [place], [place] [address] Dr. Ramses Dumas Reflex Criteria: Comment Normal [facility] Comment on above: Result Comment: See below for HPV testing results. . Performed By: #### C MP #### [facility] [place] [facility] [address] [place], [place] [address] Dr. Ramses Dumas Specimen adequacy: Comment Normal [facility] Comment on above: Result Comment: Sati sfactory for evaluation. Endocervical and/or squamous metaplastic cells (endocervical component) are present. Performed By: #### C MP #### [facility] [place] [facility] [address] [place], [place] [address] Dr. Ramses Dumas Vital Signs Date Time Vital Sign Value Performing Clinician Faci litalonso 03-20-2023 10:30-0400 Blood Pressure Location Caesar [facility] 03-20-2023 10:30-0400 Diastolic blood pressure 73 mm[Hg] Caesar VILL[facility] 03-20-2023 10:30-0400 Heart rate 80 /min Caesar VILLA [facility] 03-20-2023 10:30-0400 Respiratory rate 16 /min Caesar VILLA [facility] 03-20-2023 10:30-0400 Systolic blood pressure 128 mm[Hg] Caesar VILLA [facility] Encounters Encounter Date Encounter Type Care Provider Facility Start: 04-09-2023 End: 04-10-2023 ambulatory Caesar VILLA Facility:[id number] Start: 03-20-2023 End: 03-21-2023 ambulatory Caesar VILLA Facility:[facility] Start: 03-20-2023 End: 03-20-2023 Patient encounter procedure Caesar VILL[facility] Start: 02-16-2023 End: 02-16-[address] DOMINGO DAS . Facility:[facility] Start: 02-02-2023 End: 02-02-[address] DOMINGO DAS . Facility:[facility] Start: 12-26-2022 End: 12-27-2022 ambulatory Caesar VILLA Facility:[facility] Start: 12-26-2022 End: 12-26-2022 Patient encounter procedure Caesar VILLA [facility] Start: 12-16-2022 End: 12-17-[address] CAESAR VILLA . Facility:[facility] Start: 12-15-2022 End: 12-16-[address] CAESAR VILLA . Facility:[facility] Start: 11-27-[address] DOMINGO DAS . Facili ty:[facility] Start: 11-07-2022 End: 11-07-[address] DOMINGO DAS . Facility:[facility] Start: 11-04-2022 Encounter for preprocedural cardiovascular examination DR TOMASZ GIBBS . [facility] [place] [facility] Start: 11-04-2022 Encounter for preprocedural laboratory examination DR TOMASZ GIBBS . [facility] [place] [facility] Start: 11-03-2022 End: 11-04-2022 Encounter for preprocedural cardiovascular examination DR DOMINGO DAS . Facility:[facility] Start: 11-03-2022 End: 11-04-[address] DOMINGO DAS . Facility:[facility] Start: 09-20-2022 Encounter for preprocedural laboratory examination DR CAESAR VILLA . [facility] [facility] Start: 09-18-2022 End: 09-19-[address] CAESAR VILLA . Facility:[facility] Start: 09-16-2022 End: 09-17-[address] CAESAR VILLA . Facility:[facility] Start: 09-16-2022 End: 09-17-2022 Encounter for preprocedural laboratory examination DR CAESAR VILLA . Facility:[facility] Start: 09-05-2022 End: 09-05-2022 ambulatory ORA BOND . Facility:[facility] Start: 09-04-2022 End: 09-04-2022 ambulatory DANIELSA Connor SANTIAGO Facility:[facility] Start: 09-04-2022 End: 09-04-2022 ambulatory Daniel Santiago COILED TUBING OPERATOR.ARCHITECT IN TRAINING Work Phone: Urology Comment on above: NO SHOW (Primary Dx) Start: 09-04-2022 End: 09-04-2022 Telemedicine consultation with patient Daniel Santiago COILED TUBING OPERATOR.ARCHITECT IN TRAINING Work Phone: [facility] Start: 08-28-2022 End: 08-29-[address] ERWIN MOORE Facility:[facility] Start: 08-26-2022 ambulatory Caesar VILLA [facility] ty:[facility] Start: 08-22-2022 End: 08-24-[address] DOMINGO DAS . Facility:[facility] Start: 08-13-2022 End: 08-16-2022 Evaluation and management of inpatient Phil Aviles Facility:[facility] Start: 08-13-2022 End: 08-13-2022 ambulatory ORA BOND . Facility:[facility] Start: 07-31-2022 Encounter for cervic al smear to confirm findings of recent normal smear following initial abnormal smear DR TOMASZ GIBBS . [facility] [facility] Start: 07-30-2022 End: 07-30-[address] DOMINGO DAS . Facility:[facility] Start: 07-30-2022 End: 07-30-2022 Encounter for cervical smear to confirm findings of recent normal smear following initial abnormal smear DR DOMINGO DAS . Facility:[facility] Start: 07-02-2022 End: 07-03-[address] DOMINGO DAS . Facility: Procedures Date Procedure Procedure Detail Performing Clinician Start: 09-19-2022 Cystoscopic laser li thotripsy of ureteric calculus Caesar VILLA Start: 08-22-2022 Cystoscopic insertio n of ureteric stent Caesar VILLA Start: 04-05-2020 Ureteroscopy Caesar LEE Start: 03-01-2020 Ureteroscopy Caesar LEE Comment on above: left Start: 02-27-2020 Cystoscopic insertio n of ureteric stent Caesar VILLA Start: 12-19-2019 Cystourethroscopy wi th dilation of urethral stricture Caesar VILLA Start: 05-30-2012 Cholecystectomy Caesar VILLA Plan of Treatment Date Care Activity Detail Author Start: 12-04-2023 ambulatory Ambulatory Facility:[facility] Start: 06-19-2022 Influenza vaccination INFLUENZA (#1) [facility] Start: 10-19-2021 DEPRESSION ASSESSMENT DEPRESSION ASS ESSMENT [facility] Start: 2021 HPV TESTING HPV TESTING [facility] Start: 2012 PAP TESTING PAP TESTING [facility] Start: 2010 Urine microalbumin profile DTAP,TDAP,TD (1 - Tdap) [facility] Start: 2009 HEPATITIS C SCREENING HEPATITIS C SC REENING [facility] Start: 2009 HIV SCREENING HIV SCREENING [facility] Start: 03-14-1992 COVID-19 VACCINE (#1) COVID-19 VACCI NE (#1) [facility] Start: 1991 HEPATITIS B (1 of 3 - 3-dose series) HEPATITIS B (1 of 3 - 3-dose series) [facility] Immunizations Immunization Date Immunization Notes Care Provider Fa teresa 08-01-2019 influenza virus vaccine, unspecified formulation Caesar VILLA [facility] 08-09-2018 tetanus toxoid, redu franco diphtheria toxoid, and acellular pertussis vaccine, adsorbed Caesar VILLA [facility] 08-08-2018 influenza virus vaccine, unspecified formulation [employer] [facility] 06-19-2004 hepatitis B vaccine, pediatric or pediatric/adolescent dosage [employer] [facility] 03-27-2004 hepatitis B vaccine, pediatric or pediatric/adolescent dosage [employer] [facility] 12-18-2003 hepatitis B vaccine, pediatric or pediatric/adolescent dosage Caesar VILLA [facility] 12-18-2003 measles, mumps and rubella virus vaccine [employer] [facility] 04-10-1993 DTaP, unspecified formulation [employer] [facility] 04-10-1993 poliovirus vaccine, unspecified formulation [employer] [facility] 12-28-1992 Hib, unspecified formulation Caesar VILLA [facility] 12-28-1992 measles, mumps and rubella virus vaccine Caesar VILLA [facility] 03-26-1992 Hib, unspecified formulation Caesar VILLA [facility] 01-18-1992 Hib, unspecified formulation Caesar VILLA [facility] 1991 Hib, unspecified formulation Caesar VILLA [facility] Payers Date Payer Category Payer Self-pay 2021 Medicaid [employer] TERM 09/17 [employer] [id number] 2021-Present [phone] [address] [place] [address] Medicaid [id number] 1991 Unknown [id number] 2.16.840.1.807548.3.579.2.593 1991 Unknown [id number] 2.16.840.1.645759.3.579.2.593 1991 Unknown [id number] 2.16.840.1.256430.3.579.2.593 1991 Unknown [id number] 2.16.840.1.246487.3.579.2.593 1991 Unknown [id number] 2.16.840.1.181929.3.579.2.593 1991 Unknown [id number] 2.16.840.1.472243.3.579.2.593 1991 Unknown [id number] 2.16.840.1.941402.3.579.2.593 1991 Unknown [id number] 2.16.840.1.868491.3.579.2.593 1991 Unknown [id number] 2.16.840.1.885353.3.579.2.593 1991 Unknown [id number] 2.16.840.1.643133.3.579.2.593 1991 Unknown [id number] 2.16.840.1.009950.3.579.2.593 1991 Unknown [id number] 2.16.840.1.641900.3.579.2.593 1991 Unknown [id number] 2.16.840.1.732498.3.579.2.593 1991 Unknown [id number] 2.16.840.1.918636.3.579.2.593 1991 Unknown [id number] 2.16.840.1.595537.3.579.2.593 1991 Unknown [id number] 2.16.840.1.214998.3.579.2.593 1991 Unknown [id number] 2.16.840.1.299650.3.579.2.727 1991 Unknown [id number] 2.16.840.1.349884.3.579.2.727 1991 Unknown [id number] 2.16.840.1.364408.3.579.2.727 1991 Unknown [id number] 2.16.840.1.497971.3.579.2.727 1991 Unknown [id number] 2.16.840.1.178824.3.579.2.727 1991 Unknown [id number] 2.16.840.1.649915.3.579.2.727 1991 Unknown [id number] 2.16.840.1.189439.3.579.2.727 1959 Self-pay [id number] 1959 Unknown [id number] 1959 Unknown [id number] Unknown [id number] 2.16.840.1.473157.3.579.2.531 Social History Date Type Detail Facility Tobacco smoking status PRIS Tobacco smoking consumption unknown [facility] Start: 1991 Sex Assigned At Not on file [facility] Start: 08-20-2021 End: 03-20-2023 Tobacco smoking status Never smoked tobacco (finding) [facility] Tobacco smoking status Never [facility] Sex Assigned At Female [facility] Functional Status Date Assessment Result Facility 03-20-2023 Functional Status N/A [facility] Clinical Notes 07-03-2022 to 03-20-2023 Daniel Santiago APRN.ARCHITECT IN TRAINING - 09/04/2022 7:40 AM EST Note Date & Type Note Facility 03-20-2023 Hospital Discharge instructions Patient Education 03/20/2023 11:29:04 Dietary Guidelines to Help Prevent Kidney Stones Dietary Guidelines to Help Prevent Kidney Stones Kidney stones are deposits of minerals and salts that form inside your kidneys. Your risk of developing kidney stones may be greater depending on your diet, your lifestyle, the medicines you take, and whether you have certain medical conditions. Most people can lower their chances of developing kidney stones by following the instructions below. Your dietitian may give you more specific instructions depending on your overall health and the type of kidney stones you tend to develop. What are tips for following this plan? Reading food labels Choose foods with no salt added or low-salt labels. Limit your salt (sodium) intake to less than 1,500 mg a day. Choose foods with calcium for each meal and snack. Try to eat about 300 mg of calcium at each meal. Foods that contain 200 500 mg of calcium a serving include: ?8 oz (237 mL) of milk, upnhpmq-vjmwxfsgpqed-xdqdj milk, and calcium-fortifiedfruit juice. Calcium-fortified means that calcium has been added to these drinks. ?8 oz (237 mL) of kefir, yogurt, and soy yogurt. ?4 oz (114 g) of tofu. ?1 oz (28 g) of cheese. ?1 cup (150 g) of dried figs. ?1 cup (91 g) of cooked broccoli. ?One 3 oz (85 g) can of sardines or mackerel. Most people need 1,000 1,500 mg of calcium a day. Talk to your dietitian about how much calcium is recommended for you. Shopping Buy plenty of fresh fruits and vegetables. Most people do not need to avoid fruits and vegetables, even if these foods contain nutrients that may contribute to kidney stones. When shopping for convenience foods, choose: ?Whole pieces of fruit. ?Pre-made salads with dressing on the side. ?Low-fat fruit and yogurt smoothies. Avoid buying frozen meals or prepared deli foods. These can be high in sodium. Look for foods with live cultures, such as yogurt and kefir. Choose high-fiber grains, such as whole-wheat breads, oat bran, and wheat cereals. Cooking Do not add salt to food when cooking. Place a salt shaker on the table and allow each person to add his or her own salt to taste. Use vegetable protein, such as beans, textured vegetable protein (TVP), or tofu, instead of meat in pasta, casseroles, and soups. Meal planning Eat less salt, if told by your dietitian. To do this: ?Avoid eating processed or pre-made food. ?Avoid eating fast food. Eat less animal protein, including cheese, meat, poultry, or fish, if told by your dietitian. To do this: ?Limit the number of times you have meat, poultry, fish, or cheese each week. Eat a diet free of meat at least 2 days a week. ?Eat only one serving each day of meat, poultry, fish, or seafood. ?When you prepare animal protein, cut pieces into small portion sizes. For most meat and fish, one serving is about the size of the palm of your hand. Eat at least five servings of fresh fruits and vegetables each day. To do this: ?Keep fruits and vegetables on hand for snacks. ?Eat one piece of fruit or a handful of berries with breakfast. ?Have a salad and fruit at lunch. ?Have two kinds of vegetables at dinner. Limit foods that are high in a substance called oxalate. These include: ?Spinach (cooked), rhubarb, beets, sweet potatoes, and Mosotho chard. ?Peanuts. ?Potato chips, irish fries, and baked potatoes with skin on. ?Nuts and nut products. ?Chocolate. If you regularly take a diuretic medicine, make sure to eat at least 1 or 2 servings of fruits or vegetables that are high in potassium each day. These include: ?Avocado. ?Banana. ?[facility], prune, carrot, or tomato juice. ?Baked potato. ?Cabbage. ?Beans and split peas. Lifestyle Drink enough fluid to keep your urine pale yellow. This is the most important thing you can do. Spread your fluid intake throughout the day. If you drink alcohol: ?Limit how much you use to: ?0 1 drink a day for women who are not . ?0 2 drinks a day for men. ?Be aware of how much alcohol is in your drink. In the [place] one drink equals one 12 oz bottle of beer (355 mL), one 5 oz glass of wine (148 mL), or one 1 oz glass of hard liquor (44 mL). Lose weight if told by your health care provider. Work with your dietitian to find an eating plan and weight loss strategies that work best for you. General information Talk to your health care provider and dietitian about taking daily supplements. You may be told the following depending on your health and the cause of your kidney stones: ?Not to take supplements with vitamin C. ?To take a calcium supplement. ?To take a daily probiotic supplement. ?To take other supplements such as magnesium, fish oil, or vitamin B6. Take cjey-kte-fjirtyw and prescription medicines only as told by your health care provider. These include supplements. What foods should I limit? Limit your intake of the following foods, or eat them as told by your dietitian. Vegetables Spinach. Rhubarb. Beets. Canned vegetables. Pickles. Olives. Baked potatoes with skin. Grains Wheat bran. Baked goods. Salted crackers. Cereals high in sugar. Meats and other proteins Nuts. Nut butters. Large portions of meat, poultry, or fish. Salted, precooked, or cured meats, such as sausages, meat loaves, and hot dogs. Dairy Cheese. Beverages Regular soft drinks. Regular vegetable juice. Seasonings and condiments Seasoning blends with salt. Salad dressings. Soy sauce. Ketchup. Barbecue sauce. Other foods Canned soups. Canned pasta sauce. Casseroles. Pizza. Lasagna. Frozen meals. Potato chips. Monegasque fries. The items listed above may not be a complete list of foods and beverages you should limit. Contact a dietitian for more information. What foods should I avoid? Talk to your dietitian about specific foods you should avoid based on the type of kidney stones you have and your overall health. Fruits Grapefruit. The item listed above may not be a complete list of foods and beverages you should avoid. Contact a dietitian for more information. Summary Kidney stones are deposits of minerals and salts that form inside your kidneys. You can lower your risk of kidney stones by making changes to your diet. The most important thing you can do is drink enough fluid. Drink enough fluid to keep your urine pale yellow. Talk to your dietitian about how much calcium you should have each day, and eat less salt and animal protein as told by your dietitian. This information is not intended to replace advice given to you by your health care provider. Make sure you discuss any questions you have with your health care provider. Document Revised: 06/16/2022 Document Reviewed: 06/16/2022 [employer] Patient Education 2022 [employer]. Follow Up Care 12/26/2022 08:46:46 With:IDALMIS BORDEN, Caesar Turner, URL Address: [facility] [address] , [place] [address]- When: Unknown [facility] 11-07-2022 Note OPERATIVE NOTE OPERATION DATE: 11/07/2022 PROCEDURE: Mery endometrial ablation with LEEP. PREOPERATIVE DIAGNOSIS: Cervical dysplasia, menorrhagia. POSTOPERATIVE DIAGNOSIS: Cervical dysplasia, menorrhagia. ANESTHESIA: General. SURGEON: Tomasz Gibbs D.O. CLERICAL SUPPORT SPECIALIST: None. BLOOD LOSS: 50 mL. URINE OUTPUT: Yellow and clear. SPECIMEN: Ectocervical curettings. FINDINGS: Both ostia seen. No gross evidence of polyps, fibroids or malignancy. Fluffy appearing endometrium. PROCEDURE: The patient was taken back to the OR where she was prepped and draped in the normal sterile fashion after being placed in the dorsal lithotomy position, after being placed under general anesthesia without difficulty. A weighted speculum was placed into the vagina. The anterior lip was grasped with a single tooth tenaculum. The patient was then sounded to approximated 8 cm. The patient's cervix was gently dilated using Hegar dilators. The hysteroscope was passed through the cervix into the uterus where both ostia were seen. No gross evidence of polyps, fibroids or malignancy. The cervical length was noted to be 4 cm. The total cavity length is 4 cm. The Mery ablation apparatus was set to approximately 4 cm in length. This was placed through the cervix and into the uterus. After the seal was tested, at that time the total ablation of 120 seconds was performed with the Mery without difficulty. All instruments were removed from the vagina. Excellent hemostasis noted. Sponge and lap count correct times 2. Patient taken to recovery in stable condition. Patient was taken back to the Operating Room where she was given general anesthesia without difficulty. She was then placed in the dorsal lithotomy position. She was then prepped and draped in the normal sterile fashion. A weighted speculum was placed into the patient's vagina. The anterior lip of the cervix was identified and grasped with a single-tooth tenaculum. The patient's cervix was then copiously irrigated using vinegar. Then, a Lugol Solution was also placed onto the patient's cervix which demonstrated increased uptake of the Lugol solution at the [ ] o'clock and [ ] o'clock positions. At that time, the LEEP portion of the procedure was performed, including both the [ ] o'clock and [ ] o'clock positions. The ectocervix was sent out to Pathology. The patient's cervix was then coagulated using suction cautery. Excellent hemostasis was assured. Monsel Solution was then placed onto the patient's cervix to help maintain adequate hemostasis. All instruments were removed from the patient's vagina. The anterior lip of the cervix demonstrated excellent hemostasis. The patient tolerated the procedure well. Sponge, lap, and needle counts were correct x 2. The patient was taken to Recovery Room in stable condition. [facility] 09-25-2022 Hospital Discharge instructions Follow Up Care 09/25/2022 13:54:04 With:IDALMIS BORDEN, Caesar Turner, URL Address: [address] [place], [place] [id number]- When: Unknown [facility] 09-18-2022 Note OPERATIVE NOTE OPERATION DATE: 09/18/2022 PREOPERATIVE DIAGNOSIS: Left renal calculus. POSTOPERATIVE DIAGNOSIS: Left renal calculus. PROCEDURE: 1. Cystoscopy. 2. Left rigid ureteral dilation. 3. Left ureteroscopy. 4. Left pyeloscopy. 5. Holmium laser lithotripsy of a large left renal calculus. 6. Left stent removal. ANESTHESIA: General by LMA. COMPLICATIONS: None. FINDINGS: No ureteral stone. Large left lower pole renal calculus. INDICATIONS: Hemant is a 31-year-old lady who had a 1.4 cm left ureteral calculus which was obstructing her and causing pain. She was stented a few weeks ago. She now presents for definitive laser lithotripsy and possible stent removal. She has signed an informed consent for these procedures after the risks were explained to her in great detail. Of note is that her stone was pushed into the kidney when her stent was placed in the past. PROCEDURE: Patient was brought to the operating room and placed on the operating room table in the supine position. Timeout was done by all parties in the room. We all agreed upon the patient's identification and the planned procedures for this patient. General anesthesia was then administered via LMA. She was then repositioned into the modified dorsolithotomy position. All pressure points were satisfactorily padded. Genitalia were sterilely prepped and draped in the usual fashion. I started by passing a 22-Monegasque Olympus cystoscope per urethra and into the bladder. The stent was identified and it had mild encrustation. Flexible grasping forceps were passed through the scope and the stent was grasped. The stent was brought out the urethral meatus. I then slid a Glidewire up the stent, into the kidney. The old stent was then removed. I then passed a Navigator 08/31 ureteral access sheath over the wire, up to the L5 level. The stylette and wire were then removed. I then passed the flexible Olympus ureteroscope through the sheath and into the kidney. The ureter was unremarkable. The stone was in the lower pole of the kidney. I passed the 200 angstrom holmium laser fiber through the scope and made contact with the stone. I then began doing laser lithotripsy at 10 borrego continuously on the dusting mode. The stone was efficiently dusted in full. The stone was 1.4 cm in size. Upon completion, all that was visible was laser dust and no formed stone. Fluoroscopically, no formed stone was visible either. I then brought the scope out of the kidney and I then evaluated the ureter as I removed the access sheath. The entire ureter was unremarkable. I then passed the cystoscope back in the bladder and the ureter was wide open. I elected not to replace the stent. The bladder was drained of its contents and the scope was then removed. She was then transferred to a [place] and wheeled to PACU in stable condition. [facility] 09-04-2022 Note HNO ID: [id number] Author: Daniel Santiago APRN.ARCHITECT IN TRAINING Service: ? Author Type: Nurse Practitioner Type: Progress Notes Filed: 09/04/2022 7:46 AM Note Text: The patient did not show up for this appointment. The patient did not show up for this appointment. [facility] 09-04-2022 History of Present illness Narrative The patient did not show up for this appointment. The patient did not show up for this appointment. documented in this encounter [facility] 07-03-2022 Note PROCEDURE: XR ANKLE LT MIN 3 V COMPARISON: None. HISTORY: Sprain of calcaneofibular ligament FINDINGS: BONES:No fracture, acute abnormality, or significant arthropathy. SOFT TISSUES:Extensive lateral soft tissue swelling EFFUSION:None visible. OTHER: Negative. IMPRESSION: Lateral soft tissue swelling. No acute fracture Electronically authenticated by: GLEN GRAFF Date: 2022-07-03 07:09 [facility] Evaluation + Plan note Future Appointments Appointment Date:03/20/2023 10:15:00 AM Scheduled Provider:Caesar VILLA MD Location:[facility] Appointment Type:URO Office Visit [facility] Evaluation + Plan note Future Appointments Appointment Date:12/04/2023 09:45:00 AM Scheduled Provider:Caesar VILLA MD Location:[facility] Appointment Type:URO Office Visit Diagnostic Tests PendingElectrolyte Panel 03/20/23 [facility] Evaluation note Diagnosis NO SHOW- Primary [facility] N[facility] No data available for this section [facility] progress note No data available for this section [facility] Summary Purpose Family History No Family History Records FoundNo Family History Records FoundNo Family History Records FoundNo Family History Records Found Advance Directives No Advanced Directives Records FoundNo Advanced Directives Records FoundNo Advanced Directives Records FoundNo Advanced Directives Records Found Additional Source Comments INFORMATION SOURCE (unrecogn ized section and content) DATE CREATED AUTHOR 08/23/2022 [facility] DATE CREATED AUTHOR AUTHOR'S ORGANIZ ATION 09/06/2022 [facility] DATE CREATED AUTHOR AUTHOR'S ORGANIZ ATION 02/19/2023 [facility] DATE CREATED AUTHOR AUTHOR'S ORGANIZ ATION 06/06/2023 Jatin Ponce [facility] Source Comments (unrecognize d section and content) In the event this informatio n is protected by the Federal Confidentiality of Alcohol and Drug Abuse Patient Records regulations: The Federal rules restrict any use of the information to criminally investigate or prosecute any alcohol or drug abuse patient.[facility] Reason for Visit (unrecogniz ed section and content) Reason Onset Date Comments No Show 09/04/2022 No show Care Teams (unrecognized sec tion and content) Risk Management Analyst Relationship Specialty Start Date End Date Domingo Das MD [address] [place] [address] Referring Family Medicine 09/01/22 FOR RECORDS PERTAINING TO PATIENTS WHO ARE OR HAVE BEEN ENROLLED IN A CHEMICAL DEPENDENCY/SUBSTANCEABUSE PROGRAM, SOME INFORMATION MAY BE OMITTED. This clinical summary was aggregated from multiple sources. Caution should be exercised in using it in the provision of clinical care. This summary normalizes information from multiple sources, and as a consequence, information in this document may materially change the coding, format and clinical context of patient data. In addition, data may be omitted in some cases. CLINICAL DECISIONS SHOULD BE BASED ON THE PRIMARY CLINICAL RECORDS. [employer] provides no warranty or guarantee of the accuracy or completeness of information in this document.
--- NOTE | 2023-11-23 21:38 | CT_ITS ---
[address] [address] Patient Name: CORI BARRIGA MRN: [id number] date: 1990 Sex: F Assigned Patient Location: ER Current Patient Location: ER Accession/Order Number: [id number] Exam Date: 11/23/2023 22:00 Report Date: 11/23/2023 22:45 At the request of: VARGHESE CHUA Procedure: CT abdomen pelvis wo con EXAMINATION:CT abdomen pelvis wo con INDICATION:left flank pain COMPARISON:09/27/2023 TECHNIQUE:Multiple thin section transaxial slices were acquired through the abdomen and pelvis without intravenous contrast. Coronal and sagittal reconstructed images were reviewed. Oral contrastWas not administered. FINDINGS: LOWER CHEST: Mild dependent changes are present in the lung bases. LIVER: The liver is unremarkable. GALLBLADDER AND BILIARY SYSTEM: No obvious ductal dilation. Gallbladder is surgically absent. SPLEEN: The spleen is unremarkable. PANCREAS: The pancreas is unremarkable. ADRENAL GLANDS: The adrenal glands are unremarkable. KIDNEYS AND URETERS: There is no hydronephrosis of the kidneys.No obstructing urologic calcifications are present. Numerous nonobstructive left intrarenal calculi are present. There is a calculus in the lower right kidney. There is significant cortical based scarring throughout the left kidney. VASCULATURE: Vascularity is unremarkable. PERITONEUM/RETROPERITONEUM: Peritoneum/retroperitoneum is unremarkable. LYMPH NODES: No suspicious lymphadenopathy. GASTROINTESTINAL TRACT: The bowel is normal in caliber.There is chronic colonic diverticulosis of the colon without acute inflammation.The appendix is visualized and is not inflamed. BLADDER: The urinary bladder is unremarkable. REPRODUCTIVE SYSTEM: The uterus is absent. BODY WALL: There is a small fat-containing umbilical hernia and a tiny fat-containing supraumbilical hernia. BONES: Osseous structures are unremarkable. CT/CT abdomen pelvis wo con IMPRESSION: 1. Multiple nonobstructive left intrarenal calculi. There is a nonobstructive right lower pole calculus. No hydronephrosis of either kidney. Significant cortical base scarring is present in the left kidney. 2. No acute inflammatory process is identified. Electronically authenticated by: ALESSANDRA SPAULDING Date: 11/23/2023 22:45
--- NOTE | 2023-11-23 21:39 | ED.ABDPAIN1 ---
HPI - Abdominal Pain General Chief Complaint: Abdominal Pain Stated Complaint: L FLANK PAIN Time Seen by Provider: 11/23/23 21:35 Source: patient Mode of arrival: walk-in Limitations: no limitations History of Present Illness HPI narrative: past history of kidney stones. Presents complaining of left CVA pain present since yesterday. Does have urgency. No hematuria . Mild nausea. No fever or abdominal pain Related Data Allergies Allergy/AdvReac Type Severity Reaction Status Date / Time No Known Drug Allergies Allergy Verified 11/23/23 21:33 Review of Systems ROS Status of ROS 10 or more systems reviewed and unremarkable except as noted in history and below [facility] Medical History (Updated 11/23/23 @ 23:04 by Seng Verdin MD) Dyspareunia Menorrhagia ?N92.0 - Excessive and frequent menstruation with regular cycle (ICD-10) Dysmenorrhea ?N94.6 - Dysmenorrhea, unspecified (ICD-10) Pelvic pain ?R10.2 - Pelvic and perineal pain (ICD-10) Anemia ?D64.9 - Anemia, unspecified (ICD-10) Kidney stones ?N20.0 - Calculus of kidney (ICD-10) S/P extracorporeal shock wave therapy (03/2023) ?Z98.890 - Other specified postprocedural states (ICD-10) Bipolar disorder ?F31.9 - Bipolar disorder, unspecified (ICD-10) Ureteral stone ?N20.1 - Calculus of ureter (ICD-10) Kidney stones ?N20.0 - Calculus of kidney (ICD-10) Surgical History (Updated 05/06/23 @ 06:42 by Araceli Recinos) History of wisdom tooth extraction ?K08.409 - Partial loss of teeth, unspecified cause, unspecified class (ICD-10) H/O LEEP ?Z98.890 - Other specified postprocedural states (ICD-10) History of endometrial ablation ?Z98.890 - Other specified postprocedural states (ICD-10) S/P cystoscopy ?Z98.890 - Other specified postprocedural states (ICD-10) S/P ureteral stent placement ?Z96.0 - Presence of urogenital implants (ICD-10) H/O ureteroscopy ?Z98.890 - Other specified postprocedural states (ICD-10) History of cholecystectomy ?Z90.49 - Acquired absence of other specified parts of digestive tract (ICD-10) Family History (Updated 03/30/23 @ 10:56 by Natalee Jules) Other Family history of hypertension Social History (Updated 04/24/23 @ 10:12 by Valencia Chavez NP) Within the past year, how often did you have a drink containing alcohol: monthly or less Smoking status: Never smoker Non-prescribed substance use: denies use 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 Highest level of school completed/degree received: Master's degree Are you now , , , , never or living with a partner: Gender Identity: female Exam Constitutional Vital Signs, click to edit/add: Last Vital Signs Temp 97.8 F 11/23/23 21:31 Pulse 89 11/23/23 21:31 Resp 16 11/23/23 21:31 BP 150/99 H 11/23/23 21:31 Pulse Ox 99 11/23/23 21:31 O2 Del Method Room Air 11/23/23 21:31 Common normals: no apparent distress, average body habitus, oriented x3, no limitations, healthy appearing, alert and well nourished Eye Common normals: PERRL and EOMs intact bilaterally Respiratory Common normals: normal respiratory effort, no retractions, no use of accessory muscles and clear to auscultation bilaterally Cardio Common normals: regular rate, regular rhythm, S1 normal heart sound and S2 normal heart sound GI Other: mild suprapubic tenderness Other: left CVA tenderness Extremity Common normals: normal to inspection and full ROM Neuro Common normals: oriented x3, CN's II-XII intact bilaterally, moves all extremities and no focal motor deficits Psych Appearance: grossly normal Course Vital Signs Vital signs: Vital Signs Temperature 97.8 F 11/23/23 21:31 Pulse Rate 89 11/23/23 21:31 Respiratory Rate 16 11/23/23 21:31 Blood Pressure 150/99 H 11/23/23 21:31 Pulse Oximetry 99 11/23/23 21:31 Oxygen Delivery Method Room Air 11/23/23 21:31 Temperature 97.8 F 11/23/23 21:31 Pulse Rate 89 11/23/23 21:31 Respiratory Rate 16 11/23/23 21:31 Blood Pressure 150/99 H 11/23/23 21:31 Pulse Oximetry 99 11/23/23 21:31 Oxygen Delivery Method Room Air 11/23/23 21:31 MDM - Abdominal Pain MDM Narrative Medical decision making narrative: patient presents complaining of left flank pain that started yesterday and sensation of urinary urgency. found to have left CVA tenderness. CT without obstructive stone and UA without infection. Patient was medicated with Toradol and morphine due to her complaint. Discharged home in stable condition and advised to follow up with her doctor Lab Data Labs: Lab Results 11/23/23 11/23/23 Range/Units 21:34 21:40 WBC 9.6 (4.0-11.0) 10^3/uL RBC 5.23 (4.20-5.40) 10^6/uL Hgb 14.2 (12.0-16.0) g/dL Hct 44.3 (36.0-48.0) % MCV 84.7 (81.0-99.0) fL MCH 27.2 (26.7-34.0) pg MCHC 32.1 (29.9-35.2) g/dL RDW 12.9 (11.0-15.0) % Plt Count 411 (150-450) 10^3/uL MPV 9.0 L (9.5-13.5) fL Neut % (Auto) 46.2 (43.0-75.0) % Lymph % (Auto) 44.8 (20.5-60.0) % Cata[place] % (Auto) 6.5 (1.7-12.0) % Eos % (Auto) 1.5 (0.9-7.0) % Baso % (Auto) 0.8 (0.2-2.0) % Neut # (Auto) 4.4 (1.4-6.5) 10^3/uL Lymph # (Auto) 4.3 H (1.2-3.8) 10^3/uL Cataño # (Auto) 0.6 (0.3-0.8) 10^3/uL Eos # (Auto) 0.1 (0.0-0.7) 10^3/uL Baso # (Auto) 0.1 (0.0-0.1) 10^3/uL Abs Immat Gran (auto) 0.02 (0.00-0.03) 10^3/uL Imm/Tot Granulo (auto) 0.2 (0.0-0.5) % Lactate 0.9 (0.4-2.0) mmol/L Urine Color Yellow (YELLOW) Urine Clarity Clear (CLEAR) Urine pH 6.0 (5.0-9.0) Ur Specific [place] 1.025 (1.005-1.025) Urine Protein Negative (NEG/TRACE) mg/dL Urine Glucose (UA) Negative (NEGATIVE) mg/dL Urine Ketones Negative (NEGATIVE) mg/dL Urine Occult Blood Trace-i (NEGATIVE) Urine Nitrite Negative (NEGATIVE) Urine Bilirubin Negative (NEGATIVE) Urine Urobilinogen 0.2 (0.2-1.0) EU/dL Ur Leukocyte Esterase Negative (NEGATIVE) Urine RBC 0-2 (0-2) #/HPF Urine WBC 2-5 A (NONE SEEN) #/HPF Ur Squamous Epith Cells Few A (NONE/RARE) #/LPF Urine Crystals None seen (None Seen) #/HPF Urine Bacteria None seen (NONE SEEN) #/HPF Urine Casts None seen (NONE SEEN) #/LPF Urine Mucus Small A (NONE SEEN) Ur Culture Indicated? No Imaging Data Abdominal x-ray: Radiologist's impression: ITS Impressions Abdomen/Pelvis CT 11/23/23 21:38 IMPRESSION: 1. Multiple nonobstructive left intrarenal calculi. There is a nonobstructive right lower pole calculus. No hydronephrosis of either kidney. Significant cortical base scarring is present in the left kidney. 2. No acute inflammatory process is identified. Electronically authenticated by: ALESSANDRA SPAULDING Date: 11/23/2023 22:45 Discharge Plan Discharge Chief Complaint: Abdominal Pain Clinical Impression: Acute left flank pain Patient Disposition: Home, Self-Care Instructions: Flank Pain (ED) Additional Instructions: follow up with Dr Das this week Stand Alone Forms: Portal Instructions Referrals: Ignacio Das MD [Primary Care Provider] - 1 week
[2023-11-23 21:44] LABS: Basophils Absolute Auto 0.1 10^3/uL (0.0-0.1); Basophils Percent Auto 0.8 % (0.2-2.0); Eosinophils Absolute Auto 0.1 10^3/uL (0.0-0.7); Eosinophils Percent Auto 1.5 % (0.9-7.0); Hematocrit 44.3 % (36.0-48.0); Hemoglobin 14.2 g/dL (12.0-16.0); Immature Granulocytes Abs Auto 0.02 10^3/uL (0.00-0.03); Immature Granulocytes Pct Auto 0.2 % (0.0-0.5); Lymphocytes Absolute Auto 4.3 10^3/uL (1.2-3.8); Lymphocytes Percent Auto 44.8 % (20.5-60.0); Mean Corpuscular HGB Conc 32.1 g/dL (29.9-35.2); Mean Corpuscular Hemoglobin 27.2 pg (26.7-34.0); Mean Corpuscular Volume 84.7 fL (81.0-99.0); Monocytes Absolute Auto 0.6 10^3/uL (0.3-0.8); Monocytes Percent Auto 6.5 % (1.7-12.0); Neutrophils Absolute Auto 4.4 10^3/uL (1.4-6.5); Neutrophils Percent Auto 46.2 % (43.0-75.0); Platelet Count 411 10^3/uL (150-450); Red Blood Count 5.23 10^6/uL (4.20-5.40); Red Cell Distribution Width 12.9 % (11.0-15.0); White Blood Count 9.6 10^3/uL (4.0-11.0)
[2023-11-23] MEDS: KETOROLAC TROMETHAMINE 30 MG/ML VIAL IVP (21:46)
[2023-11-23] MEDS: ONDANSETRON PF 4 MG/2 ML VIAL IV (21:46)
[2023-11-23] MEDS: 0.9 % SODIUM CHLORIDE 1,000 ML 999 ML IV (21:46)
[2023-11-23 21:50] LABS: Bilirubin Urine NEGATIVE (NEGATIVE); Blood Urine TRACE-I (NEGATIVE); Clarity Urine CLEAR (CLEAR); Color Urine YELLOW (YELLOW); Glucose Urine UA NEGATIVE (NEGATIVE); Ketones Urine NEGATIVE (NEGATIVE); Leukocyte Esterase Urine NEGATIVE (NEGATIVE); Nitrite Urine NEGATIVE (NEGATIVE); Protein Urine NEGATIVE (NEG/TRACE); Specific Gravity Urine 1.025 (1.005-1.025); Urobilinogen Urine 0.2 EU/dL (0.2-1.0)
[2023-11-23 21:52] LABS: Urine Microscopic Indicated YES
[2023-11-23 21:59] LABS: Bacteria Urine NONE SEEN #/HPF (NONE SEEN); Cast Seen? NONE SEEN #/LPF (NONE SEEN); Crystals Seen? None Seen #/HPF (None Seen); Mucus Urine SMALL (NONE SEEN); RBC Urine 0-2 #/HPF (0-2); Squamous Epithelial Cell Urine FEW #/LPF (NONE/RARE); Urine Culture Indicated NO
[2023-11-23 22:05] LABS: Lactate/Lactic Acid 0.9 mmol/L (0.4-2.0)
[2023-11-23] MEDS: MORPHINE SULFATE 4 MG/ML VIAL IV (22:46)
[2023-11-23 23:17] VITALS: BP 133/92; PULSE 80; RESP 18; O2SAT 98
== END 2023-11-23 23:18 | disposition home or self-care (01) ==
PROVIDERS: Emergency Provider Internal Medicine; PCP Family Medicine
DX: R10.9 Unspecified abdominal pain (principal); Z87.442 Personal history of urinary calculi; F31.9 Bipolar disorder, unspecified; Z98.890 Other specified postprocedural states; Z90.49 Acquired absence of other specified parts of digestive tract
CPT/HCPCS: 36415; 74176; 81001; 83605; 85025; 96374; 96375; 99285; J1885; J2270; J2405

== ENCOUNTER 2023-12-06 06:02 | Emergency (ER) | payer OTHER, SELFPAY ==
[2023-12-06 06:06] VITALS: BP 145/100; PULSE 80; RESP 16; TEMP 36.7; O2SAT 98; BMI 32.3
--- OUTSIDE RECORDS SUMMARY | 2023-12-06 06:16 | XMS_ITS | CCD ---
Author Name Unknown Address [address] [place] [address] Organization [facility] Team Providers Care Behavior Analyst Name Role Phone Phil Aviles Attending UnavailPhil Lam Admitting UnavailDomingo Rea Primary Care Unavailable Domingo Das MD Unavailable DANIEL SANTIAGO Attending Unavailable DOMINGO DAS Referring Unavailable Domingo Das Primary Care Physician LILLIAN ., DR LANE Primary Care Unavailable BERNIE ., DR TOLBERT Admitting Unavailable BERNIE ., DR TOLBERT Attending Unavailable SILVERIO, DR ERWIN Turner Consulting Unavailable SILVERIO, DR ERWIN Turner Attending Unavailable LILLIAN ., DR LANE Primary Care Unavailable SILVERIO, DR ERWIN Turner Admitting Unavailable ERICKA IGLESIAS Consulting Unavailable VARUN ., ORA Consulting Unavailable VARUN ., ORA Attending Unavailable HOY ., DR LANE Primary Care Unavailable VAURN ., ORA Admitting Unavailable VILLA ., DR [...] Unavailable HOY ., DR LANE Admitting Unavailable WEST, DR GLEN Alford Consulting Unavailable HOY ., DR LANE Primary Care Unavailable BERNIE ., DR TOLBERT Admitting Unavailable BERNIE ., DR TOLBERT Attending Unavailable BERNIE ., DR TOLBERT Consulting Unavailable VILLA ., DR CASTELLANO Consulting Unavailable VILLA ., DR CASTELLANO Attending Unavailable HOY ., DR LANE Primary Care Unavailable VILLA ., DR CASTELLANO Admitting Unavailable ZIEBER, DR JENNIFER Turner Consulting Unavailable HOY ., DR LANE Primary Care Unavailable BERNIE ., DR TOLBERT Admitting Unavailable BERNIE ., DR TOLBERT Attending Unavailable WEST, DR GLEN Alford Consulting Unavailable BERNIE ., DR TOLBERT Consulting Unavailable HOY ., DR LANE Primary Care Unavailable BERNIE ., DR TOLBERT Admitting Unavailable BERNIE ., DR TOLBERT Attending Unavailable BERNIE ., DR TOLBERT Consulting Unavailable HOY ., DR LANE Primary Care Unavailable BERNIE ., DR TOLBERT Admitting Unavailable BERNIE ., DR TOLBERT Attending Unavailable BERNIE ., DR TOLBERT Consulting Unavailable EMELYN, BALWINDER Consulting Unavailable MILTON VARMA Consulting Unavailable VILLA [...] IRIZARRY Consulting Unavailable GM HERNANDEZ Consulting Unavailable BERNIE ., DR TOLBERT Admitting Unavailable HOY ., DR LANE Primary Care Unavailable BERNIE ., DR TOLBERT Attending Unavailable BERNIE ., DR TOLBERT Consulting Unavailable Caesar VILLA Attending Unavailable VILLACaesar Attending Unavailable VILLACaesar Attending Unavailable VILLACaesar Attending Unavailable Medications Current Medications Medication Drug [...] / samidorphan 10 MG Oral Tablet [Lybalvi] (2 sources) Start: 03-20-2023 Lybalvi 15 mg-10 mg oral tablet Refill(s) 0 Start Date: 03/20/23 Status: Ordered QUEtiapine 100 mg oral tablet (1 source) Atypical Antipsychotic Start: 12-24-2022 quetiapine 100 mg Tab Refills(s) 0 Start Date: 12/24/22 Status: Ordered Completed/Discontinued Medications Medication Drug Class(es) Dates Sig (Normalized) Sig (Original) K-vescent 25 mEq oral tablet, effervescent (1 source) Start: 06-23-2023 take 1 tablet by mouth twice daily K-vescent 25 mEq oral tablet, effervescent 25 mEq = 1 tab(s), Oral, BID, # 30 tab(s), Refills(s) 3, Pharmacy: [facility]/pharmacy #[id number], 168, cm, 03/20/23 10:32:00 EDT, Height/Length Dosing, 95, kg, 03/20/23 10:32:00 EDT, Weight Dosing Start Date: 06/23/23 Status: Ordered Problems Active Problems Problem Classification Problem Date Documented Da te Episodic/Chronic Abdominal hernia (1 source) Umbilical hernia without obstruction or gangrene; Translations: [UMBILICAL HERNIA W/O OBST/GANGRENE] Onset: 02-18-2023 Episodic Abdominal pain (9 sources) Flank pain; Translations: [Unspecified abdominal pain] Onset: 09-05-2022 02-28-2020 Episodic Calculus of urinary tract (13 sources) Kidney stone; Translations: [Personal history of urinary calculi] Onset: 09-01-2022 12-19-2019 Episodic Genitourinary symptoms and ill-defined conditions (4 sources) Urge incontinence of urine; Translations: [Presence of urogenital implants] Onset: 09-09-2022 12-19-2019 Chronic Genitourinary symptoms and ill-defined conditions (20 sources) Dysuria; Translations: [Increased frequency of urination] Onset: 02-18-2023 02-28-2020 Episodic Menstrual disorders (5 sources) Excessive and frequent menstruation with regular cycle; Translations: [EXCESS FREQ MENSTRUATION W/REG CYCL] Onset: 11-04-2022 Chronic Mood disorders (5 sources) Bipolar disorder, unspecified; Translations: [Major depressive disorder, single episode, unspecified] Onset: 08-13-2022 03-20-2023 Chronic Nausea and vomiting (4 sources) Nausea with vomiting, unspecified; Translations: [NAUSEA WITH VOMITING UNSPECIFIED] Onset: 02-16-2023 Episodic Other aftercare (1 source) 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; Translations: [OTH ALF CURRENT DRUG THERAPY] Onset: 02-18-2023 Episodic Other aftercare (1 source) 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; Translations: [HIMS MANAGER USE ORAL HYPOGLYCEMIC DX] Onset: 02-18-2023 Episodic Other diseases of bladder and urethra (3 sources) Urethral stricture 12-19-2019 Episodic Other diseases of kidney and ureters (3 sources) Cyst of kidney 12-19-2019 Episodic Other nutritional; endocrine; and metabolic disorders (3 sources) Body mass index 30+ - obesity [...] Episodic Unclassified (1 source) NO SHOW Unclassified (3 sources) Finding of sensation of bladder 08-20-2021 Unclassified (1 source) CONTACT W/AND (SUSP) EXPOS COVID-19; Translations: [CONTACT W/AND (SUSP) EXPOS COVID-19] Onset: 11-04-2022 Urinary tract infections (9 sources) Pyelonephritis; Translations: [Urinary tract infectious disease] [...] Range Facility [facility] Report[facility] 06-05-2023 Lab Reports [id number]#1 .00CD:127 [facility] Reminderson 04-24-2023 Reminders - From: Whitney Collier To: [facility] Results; Sent: 03/20/2023 12:53:35 EDT Show up: 04/17/2023 12:52:00 EDT Subject: Electrolyte panel Due Date/Time: 04/17/2023 12:52:00 EDT Pt should be getting electrolyte panel April 17 after starting HCTZ. Also has hx of low K but recent level was wnl. Please check for these results and once they are in, call the pt with the results. duplicate message [facility] Operative Reporton Operative Report [id number]#1. 00CD:127 [facility] RAD - MISCon 04-10-2023 RAD - MISC [id number]#1 .00CD:127 [facility] Report[facility] 04-06-2023 Lab Reports [id number]#1 .00CD:127 [facility] Lab Reports [id number]#1 .00CD:127 [facility] Report[facility] 03-23-2023 Lab Reports [id number]#1 .00CD:127 Normal [facility] Lab Reports [id number]#1 .00CD:127 Normal [facility] Lab Reports [id number]#1 .00CD:127 Normal [facility] RAD - CT Reporton 03-23-2023 RAD - CT Report [id number]#1 .00CD:127 Normal [facility] RAD - CT Report [id number]#1 .00CD:127 [facility] Ambulatory Visit Summaryon 0 03-20-2023 Ambulatory Visit Summary CORI BARRIGA :1990 Visit Date:03/20/2023 Ambulatory Visit Instructions Your Diagnosis Kidney stone Hypercalciuria History of kidney stones Hyperoxaluria Your Care Team Attending Physician - IDALMIS BORDEN, Caesar Turner Primary Care Physician - Domingo Das MD [...] Following Appointments Follow Up with IDALMIS BORDEN, DANYA Butt When: Where: [facility] [address] [place] [address]- Medications What When Instructions Unchanged olanzapine-samidorpha n [...] handful of b (more content not included)... [facility] Consent for Procedure/Surger yon 03-20-2023 Consent for Procedure/Surgery [id number]#1 .00CD:127 [facility] Patient Educationon 03-20-20 23 Patient Education [...] Spinach (cooked), rhubarb, beets, sweet potatoes, and Montenegrin chard. ? Peanuts. ? Potato chips, syriac fries, and baked potatoes with skin on. ? Nuts and nut products. ? Chocolate. ? If you regularly take a diuretic medicine, make sure to eat at least 1 or 2 servings of fruits or vegetables that are high in potassium each day. These include: ? Avocado. ? Banana. ? [place]renac, prune, carrot, or tomato juice. ? Baked [...] fish oil, or vitamin B6. ? Take wpxv-cpn-fcbzpgy and prescription medicines only as told by your health care provider. These include supplements. What foods should I limit? Limit your in (more content not included)... Normal [facility] Urology Office/Clinic Noteon 03-20-2023 Urology Office/Clinic Note [...] Lt kidney pain. Did got to the [place] ER. DX'd & treated for UTI. (NEG [...] L. Ox slightly elevated. Pt presented to [facility] ER on 03/06/23 due to L [...] mg qd. SEs discussed. Rx sent to [facility]. -Electrolyte panel 4 weeks to the day [...] See #2. Follow-up With When Contact Information IDALMIS BORDEN, Caesar Truner, URL [facility] [address] [place] [address]- Additional Instructions: schedule R ESWL Patient Education [...] kidney s (more content not included)... Normal [facility] Comment on above: Result Comment: Elec tronically Signed By: Caesar VILLA MD\.br\Date and Time Signed: 03/20/23 11:30 EDT\.br\Electronically Co-Signed By: Whitney Collier\.br\Date and Time Co-Signed: 03/20/23 11:28 EDT CBC AUTO DIFFon 02-16-2023 BASO # 0.1 103/ul Normal 0.0-0.1 [facility] Comment on above: Performed By: #### U KJ 24 #### [facility] [address] [address] [address] Ramses Dumas Basophils/100 WBC (Bld) 0.5 % Normal 0.2-2.0 [facility] Comment on above: Performed By: #### U KJ 24 #### [facility] [address] [place] [address] Dr. Ramses Dumas EO # 0.0 103/ul Normal 0.0-0.7 [facility] Comment on above: Performed By: #### U KJ 24 #### [facility] [address] [place] [address] Dr. Ramses Dumas Eosinophils/100 WBC (Bld) 0.4 % Critically low 0.9-7.0 [facility] Comment on above: Performed By: #### U KJ 24 #### [facility] [address] [place] [address] Dr. Ramses Dumas Erythrocyte distribution width (RBC) [Ratio] 13.7 % Normal 11.0-15.0 [facility] Comment on above: Performed By: #### U KJ 24 #### [facility] [address] [place] [address] Dr. Ramses Dumas Hematocrit (Bld) [Volume fraction] 45.1 % Normal 36.0-48.0 [facility] Comment on above: Performed By: #### U KJ 24 #### [facility] [address] [place] [address] Dr. Ramses Dumas Hemoglobin (Bld) [Mass/Vol] 14.3 g/dL Normal 12.0-16.0 [facility] Comment on above: Performed By: #### U KJ 24 #### [facility] [address] [place] [address] Dr. Ramses Dumas IG # 0.02 10e3/ul Normal 0.00-0.03 [facility] Comment on above: Performed By: #### U KJ 24 #### [facility] [address] [place] [address] Dr. Ramses Dumas IG % 0.2 % Normal 0.0-0.5 [facility] Comment on above: Performed By: #### U KJ 24 #### [facility] [address] [place] [address] Dr. Ramses Dumas LYMPH # 2.5 103/ul Normal 1.2-3.8 [facility] Comment on above: Performed By: #### U KJ 24 #### [facility] [address] [place] [address] Dr. Ramses Dumas Lymphocytes/100 WBC (Bld) 26.4 % Normal 20.5-60.0 [facility] Comment on above: Performed By: #### U KJ 24 #### [facility] [address] [place] [address] Dr. Ramses Dumas MANUAL DIFF REQ NO Normal [facility] Comment on above: Performed By: #### U KJ 24 #### [facility] [address] [place] [address] Dr. Ramses Dumas MCH (RBC) [Entitic mass] 25.6 pg Critically low 26.7-34.0 [facility] Comment on above: Performed By: #### U KJ 24 #### [facility] [address] [place] [address] Dr. Ramses Dumas MCHC (RBC) [Mass/Vol] 31.7 g/dL Normal 29.9-35.2 [facility] Comment on above: Performed By: #### U KJ 24 #### [facility] [address] [place] [address] Dr. Ramses Dumas MCV (RBC) [Entitic vol] 80.7 fL Critically low 81.0-99.0 [facility] Comment on above: Performed By: #### U KJ 24 #### [facility] [address] [place] [address] Dr. Ramses Dumas MONO # 0.7 103/ul Normal 0.3-0.8 [facility] Comment on above: Performed By: #### U KJ 24 #### [facility] [address] [place] [address] Dr. Ramses Dumas Monocytes/100 WBC (Bld) 7.6 % Normal 1.7-12.0 [facility] Comment on above: Performed By: #### U KJ 24 #### [facility] [address] [place] [address] Dr. Ramses Dumas NEUT # 6.1 103/ul Normal 1.4-6.5 [facility] Comment on above: Performed By: #### U KJ 24 #### [facility] [address] [address] [address] Ramses Dumas Neutrophils/100 WBC (Bld) 64.9 % Normal 43.0-75.0 [facility] Comment on above: Performed By: #### U KJ 24 #### [facility] [address] [place] [address] Dr. Ramses Dumas Platelet mean volume (Bld) [Entitic vol] 11.0 fL Normal 9.5-13.5 [facility] Comment on above: Performed By: #### U KJ 24 #### [facility] [address] [place] [address] Dr. Ramses Dumas PLT 270 103/ul Normal 150-450 [facility] Comment on above: Performed By: #### U KJ 24 #### [facility] [address] [place] [address] Dr. Ramses Dumas RBC 5.59 106/ul Critically high 4.20-5.40 [facility] Comment on above: Performed By: #### U KJ 24 #### [facility] [address] [place] [address] Dr. Ramses Dumas WBC 9.4 103/ul Normal 4.0-11.0 [facility] Comment on above: Performed By: #### U KJ 24 #### [facility] [address] [place] [address] ABD/PELV W CONon [...] by: FARTUN NOVOA Date: 2023-02-16 18:21 Normal [facility] ER URINE PROFILEon 3 Bilirubin Ql (U) SMALL Abnormal NEGATIVE [facility] Comment on above: Performed By: #### C MP #### [facility] [address] [place] [address] Dr. Ramses Dumas Clarity (U) CLEAR Normal CLEAR [facility] Comment on above: Performed By: #### C MP #### [facility] [address] [place] [address] Dr. Ramses Dumas Color (U) YELLOW Normal YELLOW [facility] Comment on above: Performed By: #### C MP #### [facility] [address] [place] [address] Dr. Ramses Dumas ERUAHD A micrscopic examination will be performed if indicated. Normal [facility] Comment on above: Performed By: #### C MP #### [facility] [address] [place] [address] Dr. Ramses Dumas Glucose Ql (U) Negative Normal NEGATIVE [facility] Comment on above: Performed By: #### C MP #### [facility] [address] [place] [address] Dr. Ramess Dumas Hemoglobin Ql (U) Negative Normal NEGATIVE [facility] Comment on above: Performed By: #### C MP #### [facility] [address] [place] [address] Dr. Ramses Dumas Ketones Ql (U) 40 mg/dl Abnormal NEGATIVE [facility] Comment on above: Performed By: #### C MP #### [facility] [address] [place] [address] Dr. Ramses Dumas LEUKOCYTES SMALL Abnormal NEGATIVE [facility] Comment on above: Performed By: #### C MP #### [facility] [address] [place] [address] Dr. Ramses Dumas Nitrite Ql (U) Negative Normal NEGATIVE [facility] Comment on above: Performed By: #### C MP #### [facility] [address] [place] [address] Dr. Ramses Dumas pH (U) 7.0 [pH] Normal 5-9 [facility] Comment on above: Performed By: #### C MP #### [facility] [address] [place] [address] Dr. Ramses Dumas Protein (U) [Mass/Vol] 30 mg/dL Abnormal NEGAT CHRIS/ TRACE [facility] Comment on above: Performed By: #### C MP #### [facility] [address] [place] [address] Dr. Ramses Dumas SPEC GRAVITY 1.020 Normal 1.005-<=1.02 5 [facility] Comment on above: Performed By: #### C MP #### [facility] [address] [place] [address] Dr. Ramses Dumas UR MICRO IND INDICATED Normal [facility] Comment on above: Performed By: #### C MP #### [facility] [address] [place] [address] Dr. Ramses Dumas Urobilinogen Qn (U) 4 {Lucero'U}/dL Abnormal 0.2 - 1.0 [facility] Comment on above: Performed By: #### C MP #### [facility] [address] [place] [address] Dr. Ramses Dumas LIPASEon 02-16-2023 Lipase [Catalytic activity/Vol] 67.0 U/L Critically low 73.0-393.0 [facility] Comment on above: Performed By: #### U RCX #### [facility] [address] [address] [address] Ramses Dumas LIVER PROFILEon 02-16-2023 Albumin [Mass/Vol] 4.1 g/dL Normal 3.4-5.0 [facility] Comment on above: Performed By: #### U RCX #### [facility] [address] [address] [address] Ramses Dumas Albumin/Globulin [Mass ratio] 1.0 {ratio} Normal [facility] Comment on above: Performed By: #### U RCX #### [facility] [address] [place] [address] Dr. Ramses Dumas ALP [Catalytic activity/Vol] 85 U/L Normal 46-116 [facility] Comment on above: Performed By: #### U RCX #### [facility] [address] [place] [address] Dr. Ramses Dumas ALT [Catalytic activity/Vol] 61 U/L Critically high 14-59 [facility] Comment on above: Performed By: #### U RCX #### [facility] [address] [place] [address] Dr. Ramses Dumas AST [Catalytic activity/Vol] 43 U/L Critically high 15-37 [facility] Comment on above: Performed By: #### U RCX #### [facility] [address] [place] [address] Dr. Ramses Dumas BILI, CONJUGATED 0.1 mg/dL Normal 0.0-0.2 [facility] Comment on above: Performed By: #### U RCX #### [facility] [address] [place] [address] Dr. Ramses Dumas Bilirubin [Mass/Vol] 0.7 mg/dL Normal 0.2-1.0 [facility] Comment on above: Performed By: #### U RCX #### [facility] [address] [address] [address] Ramses Dumas Globulin (S) [Mass/Vol] 4.2 g/dL Normal [facility] Comment on above: Performed By: #### U RCX #### [facility] [address] [address] [address] Ramses Dumas Protein [Mass/Vol] 8.3 g/dL Critically high 6.4-8.2 [facility] Comment on above: Performed By: #### U RCX #### [facility] [address] [address] [address] Ramses Dumas URon 02-16-2023 , QUAL Negative Normal NEGATIVE [facility] Comment on above: Performed By: #### C MP #### [facility] [address] [place] [address] Dr. Ramses Dumas PROF CHEM 8 (BAS METB)on Anion gap [Moles/Vol] 14.2 mmol/L Normal [facility] Comment on above: Performed By: #### U RCX #### [facility] [address] [address] [address] Ramses Dumas Calcium [Mass/Vol] 9.5 mg/dL Normal 8.5-10.1 [facility] Comment on above: Performed By: #### U RCX #### [facility] [address] [place] [address] Dr. Ramses Dumas Chloride [Moles/Vol] 102 mmol/L Normal 98-107 [facility] Comment on above: Performed By: #### U RCX #### [facility] [address] [address] [address] Ramses Dumas CO2 [Moles/Vol] 27.5 mmol/L Normal 21.0-32.0 [facility] Comment on above: Performed By: #### U RCX #### [facility] [address] [place] [address] Dr. Ramses Dumas Creatinine [Mass/Vol] 0.71 mg/dL Normal 0.55-1.02 [facility] Comment on above: Performed By: #### U RCX #### [facility] [address] [address] [address] Ramses Dumas EGFR-AF [facility] >60 Normal >=60 [facility] Comment on above: Performed By: #### U RCX #### [facility] [address] [address] [address] Ramses Dumas EGFR-NON AF [facility] >60 Normal >=60 [facility] Comment on above: Performed By: #### U RCX #### [facility] [address] [address] [address] Ramses Dumas Glucose [Mass/Vol] 90 mg/dL Normal 74-106 [facility] Comment on above: Performed By: #### U RCX #### [facility] [address] [place] [address] Dr. Ramses Dumas Potassium [Moles/Vol] 3.7 mmol/L Normal 3.5-5.1 [facility] Comment on above: Performed By: #### U RCX #### [facility] [address] [address] [address] Ramses Dumas Sodium [Moles/Vol] 140 mmol/L Normal 136-[address] [facility] Comment on above: Performed By: #### U RCX #### [facility] [address] [place] [address] Dr. Ramses Dumas Urea nitrogen [Mass/Vol] 6.0 mg/dL Critically low 7.0-18.0 [facility] Comment on above: Performed By: #### U RCX #### [facility] [address] [address] [address] Ramses Dumas Urea nitrogen/Creatinine [Mass ratio] 8.5 mg/mg Normal [facility] Comment on above: Performed By: #### U RCX #### [facility] [address] [address] [address] Ramses Dumas URINE MICROSCOPIC ONLYon BACTERIA NONE SEEN Normal NONE SEEN [facility] Comment on above: Performed By: #### U KJ 24 #### [facility] [address] [address] [address] Ramses Dumas Bacteria identified Cx Nom (U) NOT INDICATED Normal [facility] Comment on above: Performed By: #### U KJ 24 #### [facility] [address] [place] [address] Dr. Ramses Dumas CAST NONE SEEN Normal NONE SEEN [facility] Comment on above: Performed By: #### U KJ 24 #### [facility] [address] [place] [address] Dr. Ramses Dumas Crystals LM Nom (Urine sed) NONE SEEN Normal NONE SEEN [facility] Comment on above: Performed By: #### U KJ 24 #### [facility] [address] [place] [address] Dr. Ramses Dumas Epithelial cells LM Ql (Urine sed) FEW Abnormal NONE SEEN /RARE [facility] Comment on above: Performed By: #### U KJ 24 #### [facility] [address] [place] [address] Dr. Ramses Dumas MUCOUS SMALL Abnormal NONE SEEN [facility] Comment on above: Performed By: #### U KJ 24 #### [facility] [address] [place] [address] Dr. Ramses Dumas RBC NONE SEEN Abnormal 0-2 [facility] Comment on above: Performed By: #### U KJ 24 #### [facility] [address] [place] [address] Dr. Ramses Dumas WBC 0-2 Abnormal NONE SEEN [facility] Comment on above: Performed By: #### U KJ 24 #### [facility] [address] [place] [address] Dr. Ramses Dumas PAP ACOG PANEL 2: 30 to 65on 02-10-2023 . . Normal [facility] Comment on above: Result Comment: Perf ormed at: WB Performed By: #### U RCX #### [facility] [address] [place] [address] Dr. Ramses Dumas Age Gdln ACOG Testing 30-65 Normal [facility] Comment on above: Performed By: #### U RCX #### [facility] [address] [place] [address] Dr. Ramses Dumas DIAGNOSIS: Comment Normal [facility] Comment on above: Result Comment: NEGA TIVE FOR INTRAEPITHELIAL LESION OR MALIGNANCY. REACTIVE CELLULAR CHANGES AND/OR REPAIR ARE PRESENT. Performed at: WB Performed By: #### U RCX #### [facility] [address] [address] [address] Ramses Dumas Electronically signed by: Comment Normal [facility] Comment on above: Result Comment: Chelsey Boston MD, Pathologist Performed at: WB Performed By: #### U RCX #### [facility] [address] [address] [address] Ramses Dumas HPV Aptima Negative Normal Negative [facility] Comment on above: Result Comment: This nucleic acid amplification test detects fourteen high-risk HPV types (16,18,31,33,35,39,45,51,52,56,58,59,66,68) without differentiation. Performed at: =G Performed By: #### U RCX #### [facility] [address] [address] [address] Ramses Dumas HPV Genotype Reflex Comment Normal [facility] Comment on above: Result Comment: Crit eria not met, HPV Genotype not performed. Performed at: WB Performed By: #### U RCX #### [facility] [address] [address] [address] Ramses Dumas Methodology: Comment Normal [facility] Comment on above: Result Comment: This liquid based ThinPrep(R) pap test was screened with the use of an image guided system. Performed at: WB Performed By: #### U RCX #### [facility] [address] [address] [address] Ramses Dumas Note: Comment Normal [facility] Comment on above: Result Comment: The Pap [...] By: #### U RCX #### [facility] [address] [address] [address] Ramses Dumas Performed by: Comment Normal [facility] Comment on above: Result Comment: Cuca Briceno, Machine Stripper (ASCP) Performed at: WB Performed By: #### U RCX #### [facility] [address] [address] [address] Ramses Dumas Specimen adequacy: Comment Normal [facility] Comment on above: Result Comment: Sati sfactory for evaluation. Endocervical and/or squamous metaplastic cells (endocervical component) are present. Performed at: WB Performed By: #### U RCX #### [facility] [address] [address] [address] Ramses Dumas Lab Reportson 12-29-2022 Lab Reports [id number]:127 Normal [facility] RAD - MISCon 12-21-2022 RAD - MISC [id number]:127 Normal [facility] OXALATE 24HR URINEon 023 Oxalates, Urine 44 mg/L Normal Undefined [facility] Comment on above: Performed By: #### U KJ 24 #### [facility] [address] [place] [address] Dr. Ramses Dumas Oxalates, Urine 24hr 44 mg/24 hr Critically high 4-31 [facility] Comment on above: Performed By: #### U KJ 24 #### [facility] [address] [address] [address] Ramses Dumas CITRATE URINE 24HRon 023 Citric Acid, U, 24hr 658 mg/24 hr Normal 320-1240 [facility] Comment on above: Result Comment: This test was developed and its performance characteristics determined by [facility]. It has not been cleared or approved by the Food and Drug Administration. Performed By: #### C ITRATU #### [facility] [address] [place] [address] Dr. Ramses Dumas Citric Acid, Urine 658 mg/L Normal Undefined [facility] Comment on above: Performed By: #### C ITRATU #### [facility] [address] [place] [address] Dr. Ramses Dumas MAGNESIUM 24HR URINEon 12-17 Magnesium 24hr Urine 119.0 mg/24 hr Normal 12.0-293.0 [facility] Comment on above: Performed By: #### U RCX #### [facility] [address] [place] [address] Dr. Ramses Dumas Magnesium UR 11.9 mg/dL Normal Not Estab. [facility] Comment on above: Performed By: #### U RCX #### [facility] [address] [place] [address] Dr. Ramses Dumas PHOSPHORUS 24HR URINEon Phosphorus, Urine 81.4 mg/dL Normal Not Estab. [facility] Comment on above: Performed By: #### B LDCX2 #### [facility] [address] [place] [address] Dr. Ramses Dumas Phosphorus, Urine 24hr 814 mg/24 hr Normal 261-1078 [facility] Comment on above: Performed By: #### B LDCX2 #### [facility] [address] [place] [address] Dr. Ramses Dumas PTH INTACTon 12-17-2022 PTH, Intact 46 pg/mL Normal 15-65 [facility] Comment on above: Performed By: #### U RCX #### [facility] [address] [place] [address] Dr. Ramses Dumas URIC ACID 24 HR URINEon Uric Acid, Urine 69.9 mg/dL Normal Not Estab. [facility] Comment on above: Performed By: #### U KJ 24 #### [facility] [address] [place] [address] Dr. Ramses Dumas Uric Acid, Urine 24hr 699.0 mg/24 hr Normal 173.7-902. 1 [facility] Comment on above: Performed By: #### U KJ 24 #### [facility] [address] [place] [address] Dr. Ramses Dumas BUNon 12-16-2022 Urea nitrogen [Mass/Vol] 7.0 mg/dL Normal 7.0-18.0 [facility] Comment on above: Performed By: #### C BC #### [facility] [address] [place] [address] Dr. Ramses Dumas CALCIUMon 12-16-2022 Calcium [Mass/Vol] 8.8 mg/dL Normal 8.5-10.1 [facility] Comment on above: Performed By: #### C BC #### [facility] [address] [place] [address] Dr. Ramses Dumas CALCIUM 24 HR URINEon 2022 CALC, 24 HR UR 295.0 mg/24 hr Normal 100.0-300.0 [facility] Comment on above: Performed By: #### B LDCX2 #### [facility] [address] [place] [address] Dr. Ramses Dumas UR CALCIUM 29.5 mg/dL Critically high 5.1-21.0 [facility] Comment on above: Performed By: #### B LDCX2 #### [facility] [address] [place] [address] Dr. Ramses Dumas CHLORIDEon 12-16-2022 Chloride [Moles/Vol] 105 mmol/L Normal 98-107 [facility] Comment on above: Performed By: #### C BC #### [facility] [address] [place] [address] Dr. Ramses Dumas CO2on 12-16-2022 CO2 [Moles/Vol] 26.4 mmol/L Normal 21.0-32.0 [facility] Comment on above: Performed By: #### C MP #### [facility] [address] [place] [address] Dr. Ramses Dumas CREA 24 HR URINEon 3 CREA, 24 HR UR 2337.30 mg/24 hr Critically high 800.00 -1,800 .00 [facility] Comment on above: Performed By: #### C VDTBH #### [facility] [address] [place] [address] Dr. Ramses Dumas URINE CREAT 233.73 mg/dL Normal 20.00-300.00 [facility] Comment on above: Performed By: #### C VDTBH #### [facility] [address] [address] [address] Ramses Dumas CREATININEon 12-16-2022 Creatinine [Mass/Vol] 0.70 mg/dL Normal 0.55-1.02 [facility] Comment on above: Performed By: #### C MP #### [facility] [address] [place] [address] Dr. Ramses Dumas EGFR-AF [facility] >60 Normal >=60 [facility] Comment on above: Performed By: #### C MP #### [facility] [address] [place] [address] Dr. Ramses Dumas EGFR-NON AF [facility] >60 Normal >=60 [facility] Comment on above: Performed By: #### C MP #### [facility] [address] [place] [address] Dr. Ramses Dumas NAon 12-16-2022 Sodium [Moles/Vol] 139 mmol/L Normal 136-145 [facility] Comment on above: Performed By: #### C MP #### [facility] [address] [place] [address] Dr. Ramses Dumas POTASSIUMon 12-16-2022 Potassium [Moles/Vol] 4.0 mmol/L Normal 3.5-5.1 [facility] Comment on above: Performed By: #### C MP #### [facility] [address] [place] [address] Dr. Ramses Dumas SODIUM 24 HR URINEon 023 NA, 24 HR UR 193 mmol/24 hr Normal 40-220 [facility] Comment on above: Performed By: #### C VDTBH #### [facility] [address] [place] [address] Dr. Ramses Dumas Sodium (U) [Moles/Vol] 193 mmol/L Critically high 30-90 [facility] Comment on above: Performed By: #### C VDTBH #### [facility] [address] [place] [address] Dr. Ramses Dumas UR TOT VOL 1000 ml/24 HR Normal [facility] Comment on above: Performed By: #### C VDTBH #### [facility] [address] [place] [address] Dr. Ramses Dumas Performed By: #### B LDCX2 #### [facility] [address] [place] [address] Dr. Ramses Dumas URIC ACID SERUMon 12-16-2022 Urate [Mass/Vol] 5.6 mg/dL Normal 2.6-6.0 [facility] Comment on above: Performed By: #### C MP #### [facility] [address] [place] [address] Dr. Ramses Dumas XR KUB 1 VIEWon [...] Date: 2022-12-15 08:26 Normal [facility] CBC AUTO DIFFon 11-07-2022 BASO # 0.0 103/ul Normal 0.0-0.1 [facility] Comment on above: Performed By: #### U RCX #### [facility] [address] [place] [address] Dr. Ramses Dumas Basophils/100 WBC (Bld) 0.7 % Normal 0.2-2.0 [facility] Comment on above: Performed By: #### U RCX #### [facility] [address] [place] [address] Dr. Ramses Dumas EO # 0.1 103/ul Normal 0.0-0.7 [facility] Comment on above: Performed By: #### U RCX #### [facility] [address] [place] [address] Dr. Ramses Dumas Eosinophils/100 WBC (Bld) 1.9 % Normal 0.9-7.0 [facility] Comment on above: Performed By: #### U RCX #### [facility] [address] [place] [address] Dr. Ramses Dumas Erythrocyte distribution width (RBC) [Ratio] 13.6 % Normal 11.0-15.0 [facility] Comment on above: Performed By: #### U RCX #### [facility] [address] [place] [address] Dr. Ramses Dumas Hematocrit (Bld) [Volume fraction] 37.3 % Normal 36.0-48.0 [facility] Comment on above: Performed By: #### U RCX #### [facility] [address] [place] [address] Dr. Ramses Dumas Hemoglobin (Bld) [Mass/Vol] 12.2 g/dL Normal 12.0-16.0 [facility] Comment on above: Performed By: #### U RCX #### [facility] [address] [place] [address] Dr. Ramses Dumas IG # 0.02 10e3/ul Normal 0.00-0.03 [facility] Comment on above: Performed By: #### U RCX #### [facility] [address] [place] [address] Dr. Ramses Dumas IG % 0.3 % Normal 0.0-0.5 [facility] Comment on above: Performed By: #### U RCX #### [facility] [address] [place] [address] Dr. Ramses Dumas LYMPH # 2.3 103/ul Normal 1.2-3.8 [facility] Comment on above: Performed By: #### U RCX #### [facility] [address] [place] [address] Dr. Ramses Dumas Lymphocytes/100 WBC (Bld) 39.6 % Normal 20.5-60.0 [facility] Comment on above: Performed By: #### U RCX #### [facility] [address] [place] [address] Dr. Ramses Dumas MANUAL DIFF REQ NO Normal [facility] Comment on above: Performed By: #### U RCX #### [facility] [address] [place] [address] Dr. Ramses Dumas MCH (RBC) [Entitic mass] 26.4 pg Critically low 26.7-34.0 [facility] Comment on above: Performed By: #### U RCX #### [facility] [address] [place] [address] Dr. Ramses Dumas MCHC (RBC) [Mass/Vol] 32.7 g/dL Normal 29.9-35.2 [facility] Comment on above: Performed By: #### U RCX #### [facility] [address] [place] [address] Dr. Ramses Dumas MCV (RBC) [Entitic vol] 80.7 fL Critically low 81.0-99.0 [facility] Comment on above: Performed By: #### U RCX #### [facility] [address] [place] [address] Dr. Ramses Dumas MONO # 0.5 103/ul Normal 0.3-0.8 [facility] Comment on above: Performed By: #### U RCX #### [facility] [address] [place] [address] Dr. Ramses Dumas Monocytes/100 WBC (Bld) 8.0 % Normal 1.7-12.0 [facility] Comment on above: Performed By: #### U RCX #### [facility] [address] [place] [address] Dr. Ramses Dumas NEUT # 2.9 103/ul Normal 1.4-6.5 [facility] Comment on above: Performed By: #### U RCX #### [facility] [address] [place] [address] Dr. Ramses Dumas Neutrophils/100 WBC (Bld) 49.5 % Normal 43.0-75.0 [facility] Comment on above: Performed By: #### U RCX #### [facility] [address] [address] [address] Ramses Dumas Platelet mean volume (Bld) [Entitic vol] 9.0 fL Critically low 9.5-13.5 [facility] Comment on above: Performed By: #### U RCX #### [facility] [address] [address] [address] Ramses Dumas PLT 337 103/ul Normal 150-450 [facility] Comment on above: Performed By: #### U RCX #### [facility] [address] [address] [address] Ramses Dumas RBC 4.62 106/ul Normal 4.20-5.40 [facility] Comment on above: Performed By: #### U RCX #### [facility] [address] [place] [address] Dr. Ramses Dumas WBC 5.9 103/ul Normal 4.0-11.0 [facility] Comment on above: Performed By: #### U RCX #### [facility] [address] [address] [address] Ramses Dumas POINT OF CARE GLUCOSEon 10-20 Glucose [Mass/Vol] 115 mg/dL Critically high 74-106 [facility] Comment on above: Performed By: #### C VDTBH #### [facility] [address] [place] [address] Dr. Ramses Dumas PREG QUANT HCGon 11-07-2022 HCG QUANT <1 Normal [facility] Comment on above: Performed By: #### C VDTBH #### [facility] [address] [place] [address] Dr. Ramses Dumas HCG RANGE SEE BELOW Normal [facility] Comment on above: Result Comment: 5-50 0.2-1 WEEK 50-500 1-2 WEEKS 100-5,000 2-3 WEEKS 500-10,000 3-4 WEEKS 1,000-50,000 4-5 WEEKS 10,000-100,000 5-6 WEEKS 15,000-200,000 6-8 WEEKS 10,000-100,000 2-3 MONTHS Performed By: #### C VDPETER [facility] #### [facility] [address] [address] [address] Ramses Dumas US PELVIS AND TRANSVAGon [...] ovarian simple cyst Normal [facility] CBC AUTO DIFFon 11-03-2022 BASO # 0.1 103/ul Normal 0.0-0.1 [facility] Comment on above: Performed By: #### U RCX #### [facility] [address] [address] [address] Ramses Dumas Basophils/100 WBC (Bld) 0.8 % Normal 0.2-2.0 [facility] Comment on above: Performed By: #### U RCX #### [facility] [address] [address] [address] Ramses Dumas EO # 0.1 103/ul Normal 0.0-0.7 [facility] Comment on above: Performed By: #### U RCX #### [facility] [address] [address] [address] Ramses Dumas Eosinophils/100 WBC (Bld) 1.4 % Normal 0.9-7.0 [facility] Comment on above: Performed By: #### U RCX #### [facility] [address] [place] [address] Dr. Ramses Dumas Erythrocyte distribution width (RBC) [Ratio] 13.4 % Normal 11.0-15.0 [facility] Comment on above: Performed By: #### U RCX #### [facility] [address] [place] [address] Dr. Ramses Dumas Hematocrit (Bld) [Volume fraction] 38.8 % Normal 36.0-48.0 [facility] Comment on above: Performed By: #### U RCX #### [facility] [address] [place] [address] Dr. Ramses Dumas Hemoglobin (Bld) [Mass/Vol] 12.7 g/dL Normal 12.0-16.0 [facility] Comment on above: Performed By: #### U RCX #### [facility] [address] [place] [address] Dr. Ramses Dumas IG # 0.01 10e3/ul Normal 0.00-0.03 [facility] Comment on above: Performed By: #### U RCX #### [facility] [address] [place] [address] Dr. Ramses Dumas IG % 0.1 % Normal 0.0-0.5 [facility] Comment on above: Performed By: #### U RCX #### [facility] [address] [place] [address] Dr. Ramses Dumas LYMPH # 1.9 103/ul Normal 1.2-3.8 [facility] Comment on above: Performed By: #### U RCX #### [facility] [address] [place] [address] Dr. Ramses Dumas Lymphocytes/100 WBC (Bld) 26.4 % Normal 20.5-60.0 [facility] Comment on above: Performed By: #### U RCX #### [facility] [address] [place] [address] Dr. Ramses Dumas MANUAL DIFF REQ NO Normal [facility] Comment on above: Performed By: #### U RCX #### [facility] [address] [address] [address] Ramses Dumas MCH (RBC) [Entitic mass] 26.3 pg Critically low 26.7-34.0 [facility] Comment on above: Performed By: #### U RCX #### [facility] [address] [place] [address] Dr. Ramses Dumas MCHC (RBC) [Mass/Vol] 32.7 g/dL Normal 29.9-35.2 [facility] Comment on above: Performed By: #### U RCX #### [facility] [address] [place] [address] Dr. Ramses Dumas MCV (RBC) [Entitic vol] 80.5 fL Critically low 81.0-99.0 [facility] Comment on above: Performed By: #### U RCX #### [facility] [address] [place] [address] Dr. Ramses Dumas MONO # 0.6 103/ul Normal 0.3-0.8 [facility] [facility] Comment on above: Performed By: #### U RCX #### [facility] [address] [place] [address] Dr. Ramses Dumas Monocytes/100 WBC (Bld) 8.2 % Normal 1.7-12.0 [facility] Comment on above: Performed By: #### U RCX #### [facility] [address] [place] [address] Dr. Ramses Dumas NEUT # 4.5 103/ul Normal 1.4-6.5 [facility] Comment on above: Performed By: #### U RCX #### [facility] [address] [place] [address] Dr. Ramses Dumas Neutrophils/100 WBC (Bld) 63.1 % Normal 43.0-75.0 [facility] Comment on above: Performed By: #### U RCX #### [facility] [address] [place] [address] Dr. Ramses Dumas Platelet mean volume (Bld) [Entitic vol] 8.9 fL Critically low 9.5-13.5 [facility] Comment on above: Performed By: #### U RCX #### [facility] [address] [address] [address] Ramses Dumas PLT 340 103/ul Normal 150-450 [facility] Comment on above: Performed By: #### U RCX #### [facility] [address] [address] [address] Ramses Dumas RBC 4.82 106/ul Normal 4.20-5.40 [facility] Comment on above: Performed By: #### U RCX #### [facility] [id number] Ramses Dumas WBC 7.1 103/ul Normal 4.0-11.0 [facility] Comment on above: Performed By: #### U RCX #### [facility] [address] [place] [address] Dr. Ramses Dumas Covid-19 PCR ([facility])on 10-19 SARS-CoV-2 (COVID-19) RNA FRANCESCA+probe Ql (Unsp spec) Not detected Normal NOT DETECTED [facility] Comment on above: Result Comment: This test is not yet approved or cleared by the [place] FDA. When there are no FDA-approved or cleared tests available, and other criteria are met, FDA can make tests available under an emergency access mechanism called an Emergency Use Authorization (EUA). The EUA for this test is supported by the [place] of Health and Human Service's (HHS's) declaration [...] By: #### U RCX #### [facility] [address] [address] [address] Ramses Dumas FREE T4on 11-03-2022 Free T4 [Mass/Vol] 0.99 ng/dL Normal 0.76-1.46 [facility] Comment on above: Performed By: #### B LDCX2 #### [facility] [address] [place] [address] Dr. Ramses Dumas GLYCOHEMOGLOBIN A1Con 2022 ADA RECOMMENDATION SEE BELOW Normal [facility] Comment on above: Result Comment: ADA RECOMMENDED LIMIT 4.0 - 6.0 ADA THERAPEUTIC TARGET < 7.0 ACTION SUGGESTED > 7.0 Performed By: #### C VDTBH #### [facility] [address] [place] [address] Dr. Ramses Dumas Glucose [Mass/Vol] 117 mg/dL Normal [facility] Comment on above: Performed By: #### C VDTBH #### [facility] [address] [place] [address] Dr. Ramses Dumas HbA1c (Bld) [Mass fraction] 5.7 % Normal 4.5-6.2 [facility] Comment on above: Performed By: #### C VDTBH #### [facility] [address] [place] [address] Dr. Ramses Dumas PROTIMEon 11-03-2022 INR Coag (PPP) [Relative time] 0.97 {INR} Normal [facility] Comment on above: Performed By: #### U KJ 24 #### [facility] [address] [place] [address] Dr. Ramses Dumas INR GUIDELINES SEE BELOW Normal [facility] Comment on above: Result Comment: TOÑA RED INR: 2.0 - 3.0 CONDITIONS NOT LISTED BELOW 2.5 - 3.5 FOR PROSTHETIC HEART VALVE REPLACEMENT 2.5 - 3.5 RECURRENT THROMBOSIS Performed By: #### U KJ 24 #### [facility] [address] [place] [address] Dr. Ramses Dumas PT Coag (PPP) [Time] 10.3 s Normal 9.0-11.6 [facility] Comment on above: Performed By: #### U KJ 24 #### [facility] [address] [address] [address] Ramses Dumas PTTon 11-03-2022 aPTT Coag (Bld) [Time] 27.7 s Normal 22.3-36.2 [facility] Comment on above: Performed By: #### U KJ 24 #### [facility] [address] [place] [address] Dr. Ramses Dumas TSHon 11-03-2022 TSH 0.667 uIU/mL Normal 0.358-3.740 [facility] Comment on above: Performed By: #### C VDTBH #### [facility] [address] [place] [address] Dr. Ramses Dumas PREG HCG QUALon 09-18-2022 , QUAL Negative Normal NEGATIVE [facility] Comment on above: Performed By: #### U KJ 24 #### [facility] [address] [place] [address] Dr. Ramses Dumas [facility] SARS-CoV-2 (COVID-19) RNA FRANCESCA+probe Ql (Unsp spec) Not detected Normal NOT DETECTED [facility] Comment on above: Result Comment: This test is not yet approved or cleared by the [place] FDA. When there are no FDA-approved or cleared tests available, and other criteria are met, FDA can make tests available under an emergency access mechanism called an Emergency Use Authorization (EUA). The EUA for this test is supported by the [place] of Health and Human Service's (HHS's) declaration [...] By: #### C VDTBH #### [facility] [address] [place] [address] Dr. Ramses Dumas CBC AUTO DIFFon 09-05-2022 BASO # 0.1 103/ul Normal 0.0-0.1 [facility] Comment on above: Performed By: #### B LDCX2 #### [facility] [address] [place] [address] Dr. Ramses Dumas Basophils/100 WBC (Bld) 0.7 % Normal 0.2-2.0 [facility] Comment on above: Performed By: #### B LDCX2 #### [facility] [address] [place] [address] Dr. Ramses Dumas EO # 0.2 103/ul Normal 0.0-0.7 [facility] Comment on above: Performed By: #### B LDCX2 #### [facility] [address] [place] [address] Dr. Ramses Dumas Eosinophils/100 WBC (Bld) 2.2 % Normal 0.9-7.0 [facility] Comment on above: Performed By: #### B LDCX2 #### [facility] [address] [place] [address] Dr. Ramses Dumas Erythrocyte distribution width (RBC) [Ratio] 13.9 % Normal 11.0-15.0 [facility] Comment on above: Performed By: #### B LDCX2 #### [facility] [address] [place] [address] Dr. Ramses Dumas Hematocrit (Bld) [Volume fraction] 38.8 % Normal 36.0-48.0 [facility] Comment on above: Performed By: #### B LDCX2 #### [facility] [address] [place] [address] Dr. Ramses Dumas Hemoglobin (Bld) [Mass/Vol] 12.6 g/dL Normal 12.0-16.0 [facility] Comment on above: Performed By: #### B LDCX2 #### [facility] [address] [place] [address] Dr. Ramses Dumas IG # 0.03 10e3/ul Normal 0.00-0.03 [facility] Comment on above: Performed By: #### B LDCX2 #### [facility] [address] [place] [address] Dr. Ramses Dumas IG % 0.3 % Normal 0.0-0.5 [facility] Comment on above: Performed By: #### B LDCX2 #### [facility] [address] [place] [address] Dr. Ramses Dumas LYMPH # 2.3 103/ul Normal 1.2-3.8 [facility] Comment on above: Performed By: #### B LDCX2 #### [facility] [address] [place] [address] Dr. Ramses Dumas Lymphocytes/100 WBC (Bld) 21.3 % Normal 20.5-60.0 [facility] Comment on above: Performed By: #### B LDCX2 #### [facility] [address] [place] [address] Dr. Ramses Dumas MANUAL DIFF REQ NO Normal [facility] Comment on above: Performed By: #### B LDCX2 #### [facility] [address] [place] [address] Dr. Ramses Dumas MCH (RBC) [Entitic mass] 26.4 pg Critically low 26.7-34.0 [facility] Comment on above: Performed By: #### B LDCX2 #### [facility] [address] [place] [address] Dr. Ramses Dumas MCHC (RBC) [Mass/Vol] 32.5 g/dL Normal 29.9-35.2 [facility] Comment on above: Performed By: #### B LDCX2 #### [facility] [address] [place] [address] Dr. Ramses Dumas MCV (RBC) [Entitic vol] 81.2 fL Normal 81.0-99.0 [facility] Comment on above: Performed By: #### B LDCX2 #### [facility] [address] [place] [address] Dr. Ramses Dumas MONO # 0.8 103/ul Normal 0.3-0.8 [facility] Comment on above: Performed By: #### B LDCX2 #### [facility] [address] [place] [address] Dr. Ramses Dumas Monocytes/100 WBC (Bld) 7.4 % Normal 1.7-12.0 [facility] Comment on above: Performed By: #### B LDCX2 #### [facility] [address] [place] [address] Dr. Ramses Dumas NEUT # 7.3 103/ul Critically high 1.4-6.5 [facility] Comment on above: Performed By: #### B LDCX2 #### [facility] [address] [place] [address] Dr. Ramses Dumas Neutrophils/100 WBC (Bld) 68.1 % Normal 43.0-75.0 [facility] Comment on above: Performed By: #### B LDCX2 #### [facility] [address] [place] [address] Dr. Ramses Dumas Platelet mean volume (Bld) [Entitic vol] 8.8 fL Critically low 9.5-13.5 [facility] Comment on above: Performed By: #### B LDCX2 #### [facility] [address] [place] [address] Dr. Ramses Dumas PLT 323 103/ul Normal 150-450 [facility] Comment on above: Performed By: #### B LDCX2 #### [facility] [address] [place] [address] Dr. Ramses Dumas RBC 4.78 106/ul Normal 4.20-5.40 [facility] Comment on above: Performed By: #### B LDCX2 #### [facility] [address] [place] [address] Dr. Ramses Dumas WBC 10.7 103/ul Normal 4.0-11.0 [facility] Comment on above: Performed By: #### B LDCX2 #### [facility] [address] [place] [address] Dr. Ramses Dumas CULTURE URINEon 09-05-2022 CULTURE URINE Culture Observations : LIGHT GROWTH OF MIXED GENITAL DAIANA. NO POTENTIAL PATHOGENS SEEN. Normal [facility] Comment on above: Performed By: #### U RCX #### [facility] [address] [place] [address] Dr. Ramses Dumas ER URINE PROFILEon 2 Bilirubin Ql (U) Negative Normal NEGATIVE [facility] Comment on above: Performed By: #### B LDCX2 #### [facility] [address] [place] [address] Dr. Ramses Dumas Clarity (U) CLOUDY Abnormal CLEAR [facility] Comment on above: Performed By: #### B LDCX2 #### [facility] [address] [place] [address] Dr. Ramses uDmas Color (U) YELLOW Normal YELLOW [facility] Comment on above: Performed By: #### B LDCX2 #### [facility] [address] [place] [address] Dr. Ramses DELEON A micrscopic examination will be performed if indicated. Normal [facility] Comment on above: Performed By: #### B LDCX2 #### [facility] [address] [place] [address] Dr. Ramses Dumas Glucose Ql (U) Negative Normal NEGATIVE [facility] Comment on above: Performed By: #### B LDCX2 #### [facility] [address] [place] [address] Dr. Ramses Dumas Hemoglobin Ql (U) LARGE Abnormal NEGATIVE [facility] Comment on above: Performed By: #### B LDCX2 #### [facility] [address] [place] [address] Dr. Ramses Dumas Ketones Ql (U) Negative Normal NEGATIVE [facility] Comment on above: Performed By: #### B LDCX2 #### [facility] [address] [place] [address] Dr. Ramses Dumas LEUKOCYTES SMALL Abnormal NEGATIVE [facility] Comment on above: Performed By: #### B LDCX2 #### [facility] [address] [place] [address] Dr. Ramses Dumas Nitrite Ql (U) Negative Normal NEGATIVE [facility] Comment on above: Performed By: #### B LDCX2 #### [facility] [address] [place] [address] Dr. Ramses Dumas pH (U) 6.0 [pH] Normal 5-9 [facility] Comment on above: Performed By: #### B LDCX2 #### [facility] [address] [place] [address] Dr. Ramses Dumas Protein (U) [Mass/Vol] 100 mg/dL Abnormal NEGAT CHRIS/ TRACE [facility] Comment on above: Performed By: #### B LDCX2 #### [facility] [address] [place] [address] Dr. Ramses Dumas SPEC GRAVITY >=1.030 Abnormal 1.005-<=1.02 5 [facility] Comment on above: Performed By: #### B LDCX2 #### [facility] [address] [place] [address] Dr. Ramses Dumas UR MICRO IND INDICATED Normal [facility] Comment on above: Performed By: #### B LDCX2 #### [facility] [address] [place] [address] Dr. Ramses Dumas Urobilinogen Qn (U) 0.2 {Lucero'U}/dL Normal 0.2 - 1. 0 [facility] Comment on above: Performed By: #### B LDCX2 #### [facility] [address] [place] [address] Dr. Ramses Dumas URon 09-05-2022 , QUAL Negative Normal NEGATIVE [facility] Comment on above: Performed By: #### B LDCX2 #### [facility] [address] [place] [address] Dr. Ramses Dumas PROF CHEM 8 (BAS METB)on Anion gap [Moles/Vol] 11.7 mmol/L Normal [facility] Comment on above: Performed By: #### C MP #### [facility] [address] [place] [address] Dr. Ramses Dumas Calcium [Mass/Vol] 9.1 mg/dL Normal 8.5-10.[address] [facility] Comment on above: Performed By: #### C MP #### [facility] [address] [address] [address] Ramses Dumas Chloride [Moles/Vol] 103 mmol/L Normal 98-107 [facility] Comment on above: Performed By: #### C MP #### [facility] [address] [address] [address] Ramses Dumas CO2 [Moles/Vol] 25.9 mmol/L Normal 21.0-32.0 [facility] Comment on above: Performed By: #### C MP #### [facility] [address] [place] [address] Dr. Ramses Dumas Creatinine [Mass/Vol] 0.77 mg/dL Normal 0.55-1.02 [facility] Comment on above: Performed By: #### C MP #### [facility] [address] [place] [address] Dr. Ramses Dumas EGFR-AF [facility] >60 Normal >=60 [facility] Comment on above: Performed By: #### C MP #### [facility] [address] [place] [address] Dr. Ramses Dumas EGFR-NON AF [facility] >60 Normal >=60 [facility] Comment on above: Performed By: #### C MP #### [facility] [address] [address] [address] Ramses Dumas Glucose [Mass/Vol] 124 mg/dL Critically high 74-106 [facility] Comment on above: Performed By: #### C MP #### [facility] [address] [address] [address] Ramses Dumas Potassium [Moles/Vol] 3.6 mmol/L Normal 3.5-5.1 [facility] Comment on above: Performed By: #### C MP #### [facility] [address] [place] [address] Dr. Ramses Dumas Sodium [Moles/Vol] 137 mmol/L Normal 136-[address] [facility] Comment on above: Performed By: #### C MP #### [facility] [address] [address] [address] Ramses Dumas Urea nitrogen [Mass/Vol] 12.0 mg/dL Normal 7.0-18.0 [facility] Comment on above: Performed By: #### C MP #### [facility] [address] [place] [address] Dr. Ramses Dumas Urea nitrogen/Creatinine [Mass ratio] 15.6 mg/mg Normal [facility] Comment on above: Performed By: #### C MP #### [facility] [address] [place] [address] Dr. Ramses Dumas URINE MICROSCOPIC ONLYon AMORPHOUS CRYSTALS RARE Normal [facility] Comment on above: Performed By: #### B [id number] #### [facility] [address] [place] [address] Dr. Ramses Dumas BACTERIA TRACE Abnormal NONE SEEN [facility] Comment on above: Performed By: #### B LDCX2 #### [facility] [address] [place] [address] Dr. Ramses Dumas Bacteria identified Cx Nom (U) INDICATED Normal [facility] Comment on above: Performed By: #### B LDCX2 #### [facility] [address] [place] [address] Dr. Ramses Dumas CA OX CRYSTALS RARE Normal [facility] Comment on above: Performed By: #### B LDCX2 #### [facility] [address] [place] [address] Dr. Ramses Dumas CAST NONE SEEN Normal NONE SEEN [facility] Comment on above: Performed By: #### B LDCX2 #### [facility] [address] [place] [address] Dr. Ramses Dumas Crystals LM Nom (Urine sed) SEEN Abnormal NONE SEEN [facility] Comment on above: Performed By: #### B LDCX2 #### [facility] [address] [place] [address] Dr. Ramses Dumas Epithelial cells LM Ql (Urine sed) FEW Abnormal NONE SEEN /RARE [facility] Comment on above: Performed By: #### B LDCX2 #### [facility] [address] [place] [address] Dr. Ramses Dumas MUCOUS TRACE Abnormal NONE SEEN [facility] Comment on above: Performed By: #### B LDCX2 #### [facility] [address] [place] [address] Dr. Ramses Dumas RBC 50-75 Abnormal 0-2 [facility] Comment on above: Performed By: #### B LDCX2 #### [facility] [address] [place] [address] Dr. Ramses Dumas WBC 20-50 Abnormal NONE SEEN [facility] Comment on above: Performed By: #### B LDCX2 #### [facility] [address] [place] [address] Dr. Ramses Dumas YEAST PRESENT Abnormal NONE SEEN [facility] Comment on above: Performed By: #### B LDCX2 #### [facility] [address] [place] [address] Dr. Ramses Dumas US KIDNEYSon 09-05-2022 US [...] by: GLEN GRAFF Date: 2022-09-05 11:00 Normal [facility] CT ABD/PELVIS WO CONon 08-29 [...] Date: 2022-08-29 01:10 Normal [facility] CULTURE URINEon 08-29-2022 CULTURE URINE Culture Observations : LIGHT GROWTH OF MIXED GENITAL DAIANA. NO POTENTIAL PATHOGENS SEEN. Normal [facility] Comment on above: Performed By: #### U RCX #### [facility] [address] [address] [address] Ramses Dumas CBC AUTO DIFFon 08-28-2022 BASO # 0.1 103/ul Normal 0.0-0.1 [facility] Comment on above: Performed By: #### U RCX #### [facility] [address] [address] [address] Ramses Dumas Basophils/100 WBC (Bld) 0.5 % Normal 0.2-2.0 [facility] Comment on above: Performed By: #### U RCX #### [facility] [address] [address] [address] Ramses Dumas EO # 0.3 103/ul Normal 0.0-0.7 [facility] Comment on above: Performed By: #### U RCX #### [facility] [address] [address] [address] Ramses Dumas Eosinophils/100 WBC (Bld) 2.3 % Normal 0.9-7.0 [facility] Comment on above: Performed By: #### U RCX #### [facility] [address] [address] [address] Ramses Dumas Erythrocyte distribution width (RBC) [Ratio] 13.7 % Normal 11.0-15.0 [facility] Comment on above: Performed By: #### U RCX #### [facility] [address] [place] [address] Dr. Ramses Dumas Hematocrit (Bld) [Volume fraction] 36.7 % Normal 36.0-48.0 [facility] Comment on above: Performed By: #### U RCX #### [facility] [address] [address] [address] Ramses Dumas Hemoglobin (Bld) [Mass/Vol] 12.3 g/dL Normal 12.0-16.0 [facility] Comment on above: Performed By: #### U RCX #### [facility] [address] [address] [address] Ramses Dumas IG # 0.16 10e3/ul Critically high 0.00-0.03 [facility] Comment on above: Performed By: #### U RCX #### [facility] [address] [address] Dr. Ramses Dumas IG % 1.1 % Critically high 0.0-0.5 [facility] Comment on above: Performed By: #### U RCX #### [facility] [address] [address] [address] Ramses Dumas LYMPH # 4.6 103/ul Critically high 1.2-3.8 [facility] Comment on above: Performed By: #### U RCX #### [facility] [address] [address] [address] Ramses Dumas Lymphocytes/100 WBC (Bld) 31.8 % Normal 20.5-60.0 [facility] Comment on above: Performed By: #### U RCX #### [facility] [address] [address] [address] Ramses Dumas MANUAL DIFF REQ NO Normal [facility] Comment on above: Performed By: #### U RCX #### [facility] [address] [address] [address] Ramses Dumas MCH (RBC) [Entitic mass] 26.9 pg Normal 26.7-34.0 [facility] Comment on above: Performed By: #### U RCX #### [facility] [address] [place] [address] Dr. Ramses Dumas MCHC (RBC) [Mass/Vol] 33.5 g/dL Normal 29.9-35.2 [facility] Comment on above: Performed By: #### U RCX #### [facility] [address] [address] [address] Ramses Dumas MCV (RBC) [Entitic vol] 80.3 fL Critically low 81.0-99.0 [facility] Comment on above: Performed By: #### U RCX #### [facility] [address] [address] [address] Ramses Dumas MONO # 1.0 103/ul Critically high 0.3-0.8 [facility] Comment on above: Performed By: #### U RCX #### [facility] [address] [address] [address] Ramses Dumas Monocytes/100 WBC (Bld) 7.0 % Normal 1.7-12.0 [facility] Comment on above: Performed By: #### U RCX #### [facility] [address] [address] [address] Ramses Dumas NEUT # 8.2 103/ul Critically high 1.4-6.5 [facility] Comment on above: Performed By: #### U RCX #### [facility] [address] [address] [address] Ramses Dumas Neutrophils/100 WBC (Bld) 57.3 % Normal 43.0-75.0 [facility] Comment on above: Performed By: #### U RCX #### [facility] [address] [address] [address] Ramses Dumas Platelet mean volume (Bld) [Entitic vol] 8.6 fL Critically low 9.5-13.5 [facility] Comment on above: Performed By: #### U RCX #### [facility] [address] [place] [address] Dr. Ramses Dumas PLT 395 103/ul Normal 150-450 [facility] Comment on above: Performed By: #### U RCX #### [facility] [address] [place] [address] Dr. Ramses Dumas RBC 4.57 106/ul Normal 4.20-5.40 [facility] Comment on above: Performed By: #### U RCX #### [facility] [address] [place] [address] Dr. Ramses Dumas WBC 14.3 103/ul Critically high 4.0-11.0 [facility] Comment on above: Performed By: #### U RCX #### [facility] [address] [place] [address] Dr. Ramses Dumas ER URINE PROFILEon 2 Bilirubin Ql (U) Negative Normal NEGATIVE [facility] Comment on above: Performed By: #### U KJ 24 #### [facility] [address] [place] [address] Dr. Ramses Dumas Clarity (U) CLEAR Normal CLEAR [facility] Comment on above: Performed By: #### U KJ 24 #### [facility] [address] [place] [address] Dr. Ramses Dumas Color (U) LT. YELLOW Normal YELLOW [facility] Comment on above: Performed By: #### U KJ 24 #### [facility] [address] [place] [address] Dr. Ramses DELEON A micrscopic examination will be performed if indicated. Normal [facility] Comment on above: Performed By: #### U KJ 24 #### [facility] [address] [place] [address] Dr. Ramses Dumas Glucose Ql (U) Negative Normal NEGATIVE [facility] Comment on above: Performed By: #### U KJ 24 #### [facility] [address] [address] [address] Ramses Dumas Hemoglobin Ql (U) LARGE Abnormal NEGATIVE [facility] Comment on above: Performed By: #### U KJ 24 #### [facility] [address] [place] [address] Dr. Ramses Dumas Ketones Ql (U) Negative Normal NEGATIVE [facility] Comment on above: Performed By: #### U KJ 24 #### [facility] [address] [place] [address] Dr. Ramses Dumas LEUKOCYTES MODERATE Abnormal NEGATIVE [facility] Comment on above: Performed By: #### U KJ 24 #### [facility] [address] [place] [address] Dr. Ramses Dumas Nitrite Ql (U) Negative Normal NEGATIVE [facility] Comment on above: Performed By: #### U KJ 24 #### [facility] [address] [place] [address] Dr. Ramses Dumas pH (U) 6.5 [pH] Normal 5-9 [facility] Comment on above: Performed By: #### U KJ 24 #### [facility] [address] [place] [address] Dr. Ramses Dumas Protein (U) [Mass/Vol] 100 mg/dL Abnormal NEGAT CHRIS/ TRACE [facility] Comment on above: Performed By: #### U KJ 24 #### [facility] [address] [place] [address] Dr. Ramses Dumas SPEC GRAVITY 1.020 Normal 1.005-<=1.02 5 [facility] Comment on above: Performed By: #### U KJ 24 #### [facility] [address] [place] [address] Dr. Ramses Dumas UR MICRO IND INDICATED Normal [facility] Comment on above: Performed By: #### U KJ 24 #### [facility] [address] [place] [address] Dr. Ramses Dumas Urobilinogen Qn (U) 0.2 {Lucero'U}/dL Normal 0.2 - 1. 0 [facility] Comment on above: Performed By: #### U KJ 24 #### [facility] [address] [place] [address] Dr. Ramses Dumas PROF 14(COMP METB)on 022 Albumin [Mass/Vol] 3.3 g/dL Critically low 3.4-5.0 e [facility] Comment on above: Performed By: #### C MP #### [facility] [address] [place] [address] Dr. Ramses Dumas Albumin/Globulin [Mass ratio] 0.8 {ratio} Normal [facility] Comment on above: Performed By: #### C MP #### [facility] [address] [place] [address] Dr. Ramses Dumas ALP [Catalytic activity/Vol] 108 U/L Normal 46-116 [facility] Comment on above: Performed By: #### C MP #### [facility] [address] [place] [address] Dr. Ramses Dumas ALT [Catalytic activity/Vol] 103 U/L Critically high 14-59 [facility] Comment on above: Performed By: #### C MP #### [facility] [address] [place] [address] Dr. Ramses Dumas Anion gap [Moles/Vol] 6.6 mmol/L Normal [facility] Comment on above: Performed By: #### C MP #### [facility] [address] [place] [address] Dr. Ramses Dumas AST [Catalytic activity/Vol] 21 U/L Normal 15-37 [facility] Comment on above: Performed By: #### C MP #### [facility] [address] [place] [address] Dr. Ramses Dumas Bilirubin [Mass/Vol] 0.2 mg/dL Normal 0.2-1.0 [facility] Comment on above: Performed By: #### C MP #### [facility] [address] [address] [address] Ramses Dumas Calcium [Mass/Vol] 9.2 mg/dL Normal 8.5-10.1 [facility] Comment on above: Performed By: #### C MP #### [facility] [address] [address] [address] Ramses Dumas Chloride [Moles/Vol] 102 mmol/L Normal 98-107 [facility] Comment on above: Performed By: #### C MP #### [facility] [address] [place] [address] Dr. Ramses Dumas CO2 [Moles/Vol] 28.8 mmol/L Normal 21.0-32.0 [facility] Comment on above: Performed By: #### C MP #### [facility] [address] [place] [address] Dr. Ramses Dumas Creatinine [Mass/Vol] 0.92 mg/dL Normal 0.55-1.02 [facility] Comment on above: Performed By: #### C MP #### [facility] [address] [place] [address] Dr. Ramses Dumas EGFR-AF [facility] >60 Normal >=60 [facility] Comment on above: Performed By: #### C MP #### [facility] [address] [place] [address] Dr. Ramses Dumas EGFR-NON AF [facility] >60 Normal >=60 [facility] Comment on above: Performed By: #### C MP #### [facility] [address] [place] [address] Dr. Ramses Dumas Globulin (S) [Mass/Vol] 4.1 g/dL Normal [facility] Comment on above: Performed By: #### C MP #### [facility] [address] [place] [address] Dr. Ramses Dumas Glucose [Mass/Vol] 114 mg/dL Critically high 74-106 [facility] Comment on above: Performed By: #### C MP #### [facility] [address] [place] [address] Dr. Ramses Dumas Potassium [Moles/Vol] 3.4 mmol/L Critically low 3.5-5.1 [facility] Comment on above: Performed By: #### C MP #### [facility] [address] [place] [address] Dr. Ramses Dumas Protein [Mass/Vol] 7.4 g/dL Normal 6.4-8.2 [facility] Comment on above: Performed By: #### C MP #### [facility] [address] [place] [address] Dr. Ramses Dumas Sodium [Moles/Vol] 134 mmol/L Critically low 136-145 [facility] Comment on above: Performed By: #### C MP #### [facility] [address] [place] [address] Dr. Ramses Dumas Urea nitrogen [Mass/Vol] 11.0 mg/dL Normal 7.0-18.0 [facility] Comment on above: Performed By: #### C MP #### [facility] [address] [place] [address] Dr. Ramses Dumas Urea nitrogen/Creatinine [Mass ratio] 12.0 mg/mg Normal [facility] Comment on above: Performed By: #### C MP #### [facility] [address] [place] [address] Dr. Ramses Dumas URINE MICROSCOPIC ONLYon BACTERIA MODERATE Abnormal NONE SEEN [facility] Comment on above: Performed By: #### U KJ 24 #### [facility] [address] [place] [address] Dr. Ramses Dumas Bacteria identified Cx Nom (U) INDICATED Normal [facility] Comment on above: Performed By: #### U KJ 24 #### [facility] [address] [place] [address] Dr. Ramses Dumas CAST NONE SEEN Normal NONE SEEN [facility] Comment on above: Performed By: #### U KJ 24 #### [facility] [address] [place] [address] Dr. Ramses Dumas Crystals LM Nom (Urine sed) NONE SEEN Normal NONE SEEN [facility] Comment on above: Performed By: #### U KJ 24 #### [facility] [address] [place] [address] Dr. Ramses Dumas Epithelial cells LM Ql (Urine sed) RARE Normal NONE SEEN /RARE [facility] Comment on above: Performed By: #### U KJ 24 #### [facility] [address] [place] [address] Dr. Ramses Dumas MUCOUS NONE SEEN Normal NONE SEEN [facility] Comment on above: Performed By: #### U KJ 24 #### [facility] [address] [place] [address] Dr. Ramses Dumas RBC 20-50 Abnormal 0-2 [facility] Comment on above: Performed By: #### U KJ 24 #### [facility] [address] [place] [address] Dr. Ramses Dumas WBC 5-10 Abnormal NONE SEEN [facility] Comment on above: Performed By: #### U KJ 24 #### [facility] [address] [place] [address] Dr. Ramses Dumas CULTURE BLOODon 08-25-2022 Microscopic [...] >=16 R F Normal [facility] Comment on above: Performed By: #### B LDCX2 #### [facility] [address] [place] [address] Dr. Ramses Dumas Microscopic examination of blood, [...] >=16 R F Normal [facility] Comment on above: Performed By: #### C BC #### [facility] [address] [place] [address] Dr. Ramses Dumas CBC AUTO DIFFon 08-24-2022 BASO # 0.0 103/ul Normal 0.0-0.1 [facility] Comment on above: Performed By: #### C BC #### [facility] [address] [place] [address] Dr. Ramses Dumas Basophils/100 WBC (Bld) 0.1 % Critically low 0.2-2.0 [facility] Comment on above: Performed By: #### C BC #### [facility] [address] [place] [address] Dr. Ramses Dumas EO # 0.0 103/ul Normal 0.0-0.7 [facility] Comment on above: Performed By: #### C BC #### [facility] [address] [place] [address] Dr. Ramses Dumas Eosinophils/100 WBC (Bld) 0.0 % Critically low 0.9-7.0 [facility] Comment on above: Performed By: #### C BC #### [facility] [address] [place] [address] Dr. Ramses Dumas Erythrocyte distribution width (RBC) [Ratio] 13.5 % Normal 11.0-15.0 [facility] Comment on above: Performed By: #### C BC #### [facility] [address] [address] [address] Ramses Dumas Hematocrit (Bld) [Volume fraction] 33.0 % Critically low 36.0-48.0 [facility] Comment on above: Performed By: #### C BC #### [facility] [address] [place] [address] Dr. Ramses Dumas Hemoglobin (Bld) [Mass/Vol] 10.7 g/dL Critically low 12.0-16.0 [facility] Comment on above: Performed By: #### C BC #### [facility] [address] [address] [address] Ramses Dumas IG # 0.04 10e3/ul Critically high 0.00-0.03 [facility] Comment on above: Performed By: #### C BC #### [facility] [address] [place] [address] Dr. Ramses Dumas IG % 0.4 % Normal 0.0-0.5 [facility] Comment on above: Performed By: #### C BC #### [facility] [address] [place] [address] Dr. Ramses Dumas LYMPH # 0.8 103/ul Critically low 1.2-3.8 [facility] Comment on above: Performed By: #### C BC #### [facility] [address] [place] [address] Dr. Ramses Dumas Lymphocytes/100 WBC (Bld) 7.9 % Critically low 20.5-60.0 [facility] Comment on above: Performed By: #### C BC #### [facility] [address] [place] [address] Dr. Ramses Dumas MANUAL DIFF REQ NO Normal [facility] Comment on above: Performed By: #### C BC #### [facility] [address] [place] [address] Dr. Ramses Dumas MCH (RBC) [Entitic mass] 26.5 pg Critically low 26.7-34.0 [facility] Comment on above: Performed By: #### C BC #### [facility] [address] [place] [address] Dr. Ramses Dumas MCHC (RBC) [Mass/Vol] 32.4 g/dL Normal 29.9-35.2 [facility] Comment on above: Performed By: #### C BC #### [facility] [address] [address] [address] Ramses Dumas MCV (RBC) [Entitic vol] 81.7 fL Normal 81.0-99.0 [facility] Comment on above: Performed By: #### C BC #### [facility] [address] [address] [address] Ramses Dumas MONO # 0.6 103/ul Normal 0.3-0.8 [facility] Comment on above: Performed By: #### C BC #### [facility] [address] [address] [address] Ramses Dumas Monocytes/100 WBC (Bld) 6.3 % Normal 1.7-12.0 [facility] Comment on above: Performed By: #### C BC #### [facility] [address] [address] [address] Ramses Dumas NEUT # 8.6 103/ul Critically high 1.4-6.5 [facility] Comment on above: Performed By: #### C BC #### [facility] [address] [place] [address] Dr. Ramses Dumas Neutrophils/100 WBC (Bld) 85.3 % Critically high 43.0-75.0 [facility] Comment on above: Performed By: #### C BC #### [facility] [address] [address] [address] Ramses Dumas Platelet mean volume (Bld) [Entitic vol] 9.1 fL Critically low 9.5-13.5 [facility] Comment on above: Performed By: #### C BC #### [facility] [address] [address] [address] Ramses Dumas PLT 248 103/ul Normal 150-450 [facility] Comment on above: Performed By: #### C BC #### [facility] [address] [address] [address] Ramses Dumas RBC 4.04 106/ul Critically low 4.20-5.40 [facility] Comment on above: Performed By: #### C BC #### [facility] [address] [place] [address] Dr. Ramses Dumas WBC 10.1 103/ul Normal 4.0-11.0 [facility] Comment on above: Performed By: #### C BC #### [facility] [address] [place] [address] Dr. Ramses Dumas CULTURE URINEon 08-24-2022 CULTURE [...] Tetracycline >=16 R F Normal [facility] Comment on above: Performed By: #### U RCX #### [facility] [address] [place] [address] Dr. Ramses Dumas PROF 14(COMP METB)on 022 Albumin [Mass/Vol] 2.4 g/dL Critically low 3.4-5.0 [facility] Comment on above: Performed By: #### C VDTBH #### [facility] [address] [place] [address] Dr. Ramses Dumas Albumin/Globulin [Mass ratio] 0.7 {ratio} Normal [facility] Comment on above: Performed By: #### C VDTBH #### [facility] [address] [place] [address] Dr. Ramses Dumas ALP [Catalytic activity/Vol] 95 U/L Normal 46-116 [facility] Comment on above: Performed By: #### C VDTBH #### [facility] [address] [place] [address] Dr. Ramses Dumas ALT [Catalytic activity/Vol] 327 U/L Critically high 14-59 [facility] Comment on above: Performed By: #### C VDTBH #### [facility] [address] [place] [address] Dr. Ramses Dumas Anion gap [Moles/Vol] 8.7 mmol/L Normal [facility] Comment on above: Performed By: #### C VDTBH #### [facility] [address] [place] [address] Dr. Ramses Dumas AST [Catalytic activity/Vol] 165 U/L Critically high 15-37 [facility] Comment on above: Performed By: #### C VDTBH #### [facility] [address] [place] [address] Dr. Ramses Dumas Bilirubin [Mass/Vol] 0.4 mg/dL Normal 0.2-1.0 [facility] Comment on above: Performed By: #### C VDTBH #### [facility] [address] [place] [address] Dr. Ramses Dumas Calcium [Mass/Vol] 8.0 mg/dL Critically low 8.5-10.1 [facility] Comment on above: Performed By: #### C VDTBH #### [facility] [address] [place] [address] Dr. Ramses Dumas Chloride [Moles/Vol] 108 mmol/L Critically high 98-107 [facility] Comment on above: Performed By: #### C VDTBH #### [facility] [address] [place] [address] Dr. Ramses Dumas CO2 [Moles/Vol] 25.3 mmol/L Normal 21.0-32.0 [facility] Comment on above: Performed By: #### C VDTBH #### [facility] [address] [place] [address] Dr. Ramses Dumas Creatinine [Mass/Vol] 0.70 mg/dL Normal 0.55-1.02 [facility] Comment on above: Performed By: #### C VDTBH #### [facility] [address] [address] [address] Ramses Dumas EGFR-AF [facility] >60 Normal >=60 [facility] Comment on above: Performed By: #### C VDTBH #### [facility] [address] [address] [address] Ramses Dumas EGFR-NON AF [facility] >60 Normal >=60 [facility] Comment on above: Performed By: #### C VDTBH #### [facility] [address] [address] [address] Ramses Dumas Globulin (S) [Mass/Vol] 3.6 g/dL Normal [facility] Comment on above: Performed By: #### C VDTBH #### [facility] [address] [place] [address] Dr. Ramses Dumas Glucose [Mass/Vol] 160 mg/dL Critically high 74-106 [facility] Comment on above: Performed By: #### C VDTBH #### [facility] [address] [place] [address] Dr. Ramses Dumas Potassium [Moles/Vol] 4.0 mmol/L Normal 3.5-5.1 [facility] Comment on above: Performed By: #### C VDTBH #### [facility] [address] [place] [address] Dr. Ramses Dumas Protein [Mass/Vol] 6.0 g/dL Critically low 6.4-8.2 [facility] Comment on above: Performed By: #### C VDTBH #### [facility] [address] [place] [address] Dr. Ramses Dumas Sodium [Moles/Vol] 138 mmol/L Normal 136-145 [facility] Comment on above: Performed By: #### C VDTBH #### [facility] [address] [place] [address] Dr. Ramses Dumas Urea nitrogen [Mass/Vol] 6.0 mg/dL Critically low 7.0-18.0 [facility] Comment on above: Performed By: #### C VDTBH #### [facility] [address] [place] [address] Dr. Ramses Dumas Urea nitrogen/Creatinine [Mass ratio] 8.6 mg/mg Normal [facility] Comment on above: Performed By: #### C VDTBH #### [facility] [address] [place] [address] Dr. Ramses Dumas CBC AUTO DIFFon 08-23-2022 BASO # 0.0 103/ul Normal 0.0-0.1 [facility] Comment on above: Performed By: #### U RCX #### [facility] [address] [place] [address] Dr. Ramses Dumas Basophils/100 WBC (Bld) 0.2 % Normal 0.2-2.0 [facility] Comment on above: Performed By: #### U RCX #### [facility] [address] [place] [address] Dr. Ramses Dumas EO # 0.0 103/ul Normal 0.0-0.7 [facility] Comment on above: Performed By: #### U RCX #### [facility] [address] [place] [address] Dr. Ramses Dumas Eosinophils/100 WBC (Bld) 0.1 % Critically low 0.9-7.0 [facility] Comment on above: Performed By: #### U RCX #### [facility] [address] [place] [address] Dr. Ramses Dumas Erythrocyte distribution width (RBC) [Ratio] 13.4 % Normal 11.0-15.0 [facility] Comment on above: Performed By: #### U RCX #### [facility] [address] [place] [address] Dr. Ramses Dumas Hematocrit (Bld) [Volume fraction] 34.1 % Critically low 36.0-48.0 [facility] Comment on above: Performed By: #### U RCX #### [facility] [address] [place] [address] Dr. Ramses Dumas Hemoglobin (Bld) [Mass/Vol] 10.9 g/dL Critically low 12.0-16.0 [facility] Comment on above: Performed By: #### U RCX #### [facility] [address] [address] [address] Ramses Dumas IG # 0.02 10e3/ul Normal 0.00-0.03 [facility] Comment on above: Performed By: #### U RCX #### [facility] [address] [address] [address] Ramses Dumas IG % 0.2 % Normal 0.0-0.5 [facility] Comment on above: Performed By: #### U RCX #### [facility] [address] [address] [address] Ramses Dumas LYMPH # 0.7 103/ul Critically low 1.2-3.8 [facility] Comment on above: Performed By: #### U RCX #### [facility] [address] [place] [address] Dr. Ramses Dumas Lymphocytes/100 WBC (Bld) 6.9 % Critically low 20.5-60.0 [facility] Comment on above: Performed By: #### U RCX #### [facility] [address] [place] [address] Dr. Ramses Dumas MANUAL DIFF REQ NO Normal [facility] Comment on above: Performed By: #### U RCX #### [facility] [address] [place] [address] Dr. Ramses Dumas MCH (RBC) [Entitic mass] 26.1 pg Critically low 26.7-34.0 [facility] Comment on above: Performed By: #### U RCX #### [facility] [address] [place] [address] Dr. Ramses Dumas MCHC (RBC) [Mass/Vol] 32.0 g/dL Normal 29.9-35.2 [facility] Comment on above: Performed By: #### U RCX #### [facility] [address] [place] [address] Dr. Ramses Dumas MCV (RBC) [Entitic vol] 81.8 fL Normal 81.0-99.0 [facility] Comment on above: Performed By: #### U RCX #### [facility] [address] [address] [address] Ramses Dumas MONO # 0.6 103/ul Normal 0.3-0.8 [facility] Comment on above: Performed By: #### U RCX #### [facility] [address] [address] [address] Ramses Dumas Monocytes/100 WBC (Bld) 5.9 % Normal 1.7-12.0 [facility] Comment on above: Performed By: #### U RCX #### [facility] [address] [place] [address] Dr. Ramses Dumas NEUT # 8.2 103/ul Critically high 1.4-6.5 [facility] Comment on above: Performed By: #### U RCX #### [facility] [address] [place] [address] Dr. Ramses Dumas Neutrophils/100 WBC (Bld) 86.7 % Critically high 43.0-75.0 [facility] Comment on above: Performed By: #### U RCX #### [facility] [address] [place] [address] Dr. Ramses Dumas Platelet mean volume (Bld) [Entitic vol] 9.4 fL Critically low 9.5-13.5 [facility] Comment on above: Performed By: #### U RCX #### [facility] [address] [place] [address] Dr. Ramses Dumas PLT 235 103/ul Normal 150-450 [facility] Comment on above: Performed By: #### U RCX #### [facility] [address] [place] [address] Dr. Ramses Dumas RBC 4.17 106/ul Critically low 4.20-5.40 [facility] Comment on above: Performed By: #### U RCX #### [facility] [address] [place] [address] Dr. Ramses Dumas WBC 9.5 103/ul Normal 4.0-11.0 [facility] Comment on above: Performed By: #### U RCX #### [facility] [address] [place] [address] Dr. Ramses Dumas PROF 14(COMP METB)on 022 Albumin [Mass/Vol] 2.6 g/dL Critically low 3.4-5.0 [facility] Comment on above: Performed By: #### U KJ 24 #### [facility] [address] [place] [address] Dr. Ramses Dumas Albumin/Globulin [Mass ratio] 0.8 {ratio} Normal [facility] Comment on above: Performed By: #### U KJ 24 #### [facility] [address] [place] [address] Dr. Ramses Dumas ALP [Catalytic activity/Vol] 82 U/L Normal 46-116 [facility] Comment on above: Performed By: #### U KJ 24 #### [facility] [address] [place] [address] Dr. Ramses Dumas ALT [Catalytic activity/Vol] 257 U/L Critically high 14-59 [facility] Comment on above: Performed By: #### U KJ 24 #### [facility] [address] [place] [address] Dr. Ramses Dumas Anion gap [Moles/Vol] 10.3 mmol/L Normal [facility] Comment on above: Performed By: #### U KJ 24 #### [facility] [address] [place] [address] Dr. Ramses Dumas AST [Catalytic activity/Vol] 196 U/L Critically high 15-37 [facility] Comment on above: Performed By: #### U KJ 24 #### [facility] [address] [place] [address] Dr. Ramses Dumas Bilirubin [Mass/Vol] 0.5 mg/dL Normal 0.2-1.0 [facility] Comment on above: Performed By: #### U KJ 24 #### [facility] [address] [place] [address] Dr. Ramses Dumas Calcium [Mass/Vol] 7.8 mg/dL Critically low 8.5-10.1 [facility] Comment on above: Performed By: #### U KJ 24 #### [facility] [address] [address] [address] Ramses Dumas Chloride [Moles/Vol] 104 mmol/L Normal 98-107 [facility] Comment on above: Performed By: #### U KJ 24 #### [facility] [address] [address] [address] Ramses Dumas CO2 [Moles/Vol] 24.4 mmol/L Normal 21.0-32.0 [facility] Comment on above: Performed By: #### U KJ 24 #### [facility] [address] [address] [address] Ramses Dumas Creatinine [Mass/Vol] 1.09 mg/dL Critically high 0.55-1.02 [facility] Comment on above: Performed By: #### U KJ 24 #### [facility] [address] [address] [address] Ramses Dumas EGFR-AF [facility] >60 Normal >=60 [facility] Comment on above: Performed By: #### U KJ 24 #### [facility] [address] [address] [address] Ramses Dumas EGFR-NON AF [facility] 59 mL/min/1.73m2 Critically low >=60 [facility] Comment on above: Performed By: #### U KJ 24 #### [facility] [address] [address] [address] Ramses Dumas Globulin (S) [Mass/Vol] 3.3 g/dL Normal [facility] Comment on above: Performed By: #### U KJ 24 #### [facility] [address] [address] [address] Ramses Dumas Glucose [Mass/Vol] 143 mg/dL Critically high 74-106 [facility] Comment on above: Performed By: #### U KJ 24 #### [facility] [address] [address] [address] Ramses Dumas Potassium [Moles/Vol] 3.7 mmol/L Normal 3.5-5.1 [facility] Comment on above: Performed By: #### U KJ 24 #### [facility] [address] [address] [address] Ramses Dumas Protein [Mass/Vol] 5.9 g/dL Critically low 6.4-8.2 [facility] Comment on above: Performed By: #### U KJ 24 #### [facility] [address] [place] [address] Dr. Ramses Dumas Sodium [Moles/Vol] 135 mmol/L Critically low 136-145 [facility] Comment on above: Performed By: #### U KJ 24 #### [facility] [address] [place] [address] Dr. Ramses Dumas Urea nitrogen [Mass/Vol] 10.0 mg/dL Normal 7.0-18.0 [facility] Comment on above: Performed By: #### U KJ 24 #### [facility] [address] [place] [address] Dr. Ramses Dumas Urea nitrogen/Creatinine [Mass ratio] 9.2 mg/mg Normal [facility] Comment on above: Performed By: #### U KJ 24 #### [facility] [address] [place] [address] Dr. Ramses Dumas BLOOD CULTURE ID PANELon A. baumannii Not detected Normal NOT DETECTED [facility] Comment on above: Performed By: #### C VDTBH #### [facility] [address] [place] [address] Dr. Ramses Dumas Bacteriodes fragilis Not detected Normal NOT DETECTED [facility] Comment on above: Performed By: #### C VDTBH #### [facility] [address] [place] [address] Dr. Ramses Dumas BCID CONTROLS PASSED Normal [facility] Comment on above: Performed By: #### C VDTBH #### [facility] [address] [place] [address] Dr. Ramses Dumas BCIDBTHD BLOOD CULTURE BOTTLE INFORMATION Normal [facility] Comment on above: Performed By: #### C VDTBH #### [facility] [address] [place] [address] Dr. Ramses Dumas BCIDHD1 ANTIMICROBIAL RESISTANCE GENES Normal [facility] Comment on above: Performed By: #### C VDTBH #### [facility] [address] [place] [address] Dr. Ramses Dumas BCIDHD2 SEE BELOW Normal [facility] Comment on above: Result Comment: Note : Antimicrobial resitance can occur via multiple mechanisms. A Not Detected result for the [employer] antomicrobial resistance gene assays does not indicate antimicrobial susceptibility. Subculturing is required for species identification and susceptibility testing of isolates. Performed By: #### C VDTBH #### [facility] [address] [place] [address] Dr. Ramses Dumas BCIDHD3 Positive [facility] Comment on above: Performed By: #### C VDTBH #### [facility] [address] [place] [address] Dr. Ramses Dumas BCIDHD4 Negative Normal [facility] Comment on above: Performed By: #### C VDTBH #### [facility] [address] [place] [address] Dr. Ramses Dumas BCIDHD5 YEAST Normal [facility] Comment on above: Performed By: #### C VDTBH #### [facility] [address] [place] [address] Dr. Ramses Dumas Bottle Set: Set 1 Normal [facility] Comment on above: Performed By: #### C VDTBH #### [facility] [address] [place] [address] Dr. Ramses Dumas Bottle: Pediatric Normal [facility] Comment on above: Performed By: #### C VDTBH #### [facility] [address] [place] [address] Dr. Ramses Dumas C. neoformans/gattii Not detected Normal NOT DETECTED [facility] Comment on above: Performed By: #### C VDTBH #### [facility] [address] [place] [address] Dr. Ramses Dumas Kim albicans Not detected Normal NOT DETECTED [facility] Comment on above: Performed By: #### C VDTBH #### [facility] [address] [place] [address] Dr. Ramses Dumas Kim auris Not detected Normal NOT DETECTED [facility] Comment on above: Performed By: #### C VDTBH #### [facility] [address] [place] [address] Dr. Ramses Dumas Kim glabrata Not detected Normal NOT DETECTED [facility] Comment on above: Performed By: #### C VDTBH #### [facility] [address] [place] [address] Dr. Ramses Dumas Kim Krusei Not detected Normal NOT DETECTED [facility] Comment on above: Performed By: #### C VDTBH #### [facility] [address] [place] [address] Dr. Ramses Dumas Kim Parapsilosis Not detected Normal NOT DETECTED [facility] Comment on above: Performed By: #### C VDTBH #### [facility] [address] [place] [address] Dr. Ramses Dumas Kim Tropicalis Not detected Normal NOT DETECTED [facility] Comment on above: Performed By: #### C VDTBH #### [facility] [address] [place] [address] Dr. Ramses Dumas CTX-M Resistant Gene Not Applicable Normal NOT DETECTE D [facility] Comment on above: Performed By: #### C VDTBH #### [facility] [address] [place] [address] Dr. Ramses Dumas E. Cloacae complex Not detected Normal NOT DETECTED [facility] Comment on above: Performed By: #### C VDTBH #### [facility] [address] [place] [address] Dr. Ramses Dumas E. faecalis Not detected Normal NOT DETECTED [facility] Comment on above: Performed By: #### C VDTBH #### [facility] [address] [place] [address] Dr. Ramses Dumas E. faecium Not detected Normal NOT DETECTED [facility] Comment on above: Performed By: #### C VDTBH #### [facility] [address] [place] [address] Dr. Ramses Dumas Enterobacteriaceae Not detected Normal NOT DETECTED [facility] Comment on above: Performed By: #### C VDTBH #### [facility] [address] [place] [address] Dr. Ramses Dumas Escherichia coli Not detected Normal NOT DETECTED [facility] Comment on above: Performed By: #### C VDTBH #### [facility] [address] [place] [address] Dr. Ramses Dumas H. influenzae Not detected Normal NOT DETECTED [facility] Comment on above: Performed By: #### C VDTBH #### [facility] [address] [place] [address] Dr. Ramses Dumas IMP Resistant Gene Not Applicable Normal NOT DETECTED [facility] Comment on above: Performed By: #### C VDTBH #### [facility] [address] [place] [address] Dr. Ramses Dumas K. oxytoca Not detected Normal NOT DETECTED [facility] Comment on above: Performed By: #### C VDTBH #### [facility] [address] [place] [address] Dr. Ramses Dumas K. pneumoniae Not detected Normal NOT DETECTED [facility] Comment on above: Performed By: #### C VDTBH #### [facility] [address] [place] [address] Dr. Ramses Dumas Klebsiella aerogenes Not detected Normal NOT DETECTED [facility] Comment on above: Performed By: #### C VDTBH #### [facility] [address] [place] [address] Dr. Ramses Dumas KPC Resistant Gene Not detected Normal NOT DETECTED [facility] Comment on above: Performed By: #### C VDTBH #### [facility] [address] [place] [address] Dr. Ramses Dumas List. monocytogenes Not detected Normal NOT DETECTED [facility] Comment on above: Performed By: #### C VDTBH #### [facility] [address] [place] [address] Dr. Ramses Dumas Mcr-1 Resistant Gene Not Applicable Normal NOT DETECTE D [facility] Comment on above: Performed By: #### C VDTBH #### [facility] [address] [place] [address] Dr. Ramses Dumas mecA/C Not Applicable Normal NOT DETECTED [facility] Comment on above: Performed By: #### C VDTBH #### [facility] [address] [place] [address] Dr. Ramses Dumas mecA/C MREJ Not Applicable Normal NOT DETECTED [facility] Comment on above: Performed By: #### C VDTBH #### [facility] [address] [place] [address] Dr. Ramses Dumas N. meningitidis Not detected Normal NOT DETECTED [facility] Comment on above: Performed By: #### C VDTBH #### [facility] [address] [place] [address] Dr. Ramses Dumas NDM Resistant Gene Not Applicable Normal NOT DETECTED [facility] Comment on above: Performed By: #### C VDTBH #### [facility] [address] [place] [address] Dr. Rmases Dumas Oxa-48-like Not Applicable Normal NOT DETECTED [facility] Comment on above: Performed By: #### C VDTBH #### [facility] [address] [place] [address] Dr. Ramses Dumas Proteus Not detected Normal NOT DETECTED [facility] Comment on above: Performed By: #### C VDTBH #### [facility] [address] [place] [address] Dr. Ramses Dumas Pseud. aeruginosa Not detected Normal NOT DETECTED [facility] Comment on above: Performed By: #### C VDTBH #### [facility] [address] [place] [address] Dr. Ramses Dumas S. maltophilia Not detected Normal NOT DETECTED [facility] Comment on above: Performed By: #### C VDTBH #### [facility] [address] [place] [address] Dr. Ramses Dumas Salmonella Not detected Normal NOT DETECTED [facility] Comment on above: Performed By: #### C VDTBH #### [facility] [address] [place] [address] Dr. Ramses Dumas Seratia marcescens Not detected Normal NOT DETECTED [facility] Comment on above: Performed By: #### C VDTBH #### [facility] [address] [place] [address] Dr. Ramses Dumas Site: unknown/not given Normal [facility] Comment on above: Performed By: #### C VDTBH #### [facility] [address] [place] [address] Dr. Ramses Dumas Staph. aureus Not detected Normal NOT DETECTED [facility] Comment on above: Performed By: #### C VDTBH #### [facility] [address] [place] [address] Dr. Ramses Dumas Staph. epidermidis Not detected Normal NOT DETECTED [facility] Comment on above: Performed By: #### C VDTBH #### [facility] [address] [place] [address] Dr. Ramses Dumas Stapphillip. lugdunensis Not detected Normal NOT DETECTED [facility] Comment on above: Performed By: #### C VDTBH #### [facility] [address] [place] [address] Dr. Ramses Dumas Staphylococcus Not detected Normal NOT DETECTED [facility] Comment on above: Performed By: #### C VDTBH #### [facility] Laboratory [address] [place] [address] Dr. Ramses Dumas Strep. agalactiae Detected Critically abnormal NOT DETECTED [facility] Comment on above: Performed By: #### C VDTBH #### [facility] Laboratory [address] [place] [address] Dr. Ramses Dumas Strep. pneumoniae Not detected Normal NOT DETECTED [facility] Comment on above: Performed By: #### C VDTBH #### [facility] Laboratory [address] [place] [address] Dr. Ramses Dumas Strep. pyogenes Not detected Normal NOT DETECTED [facility] Comment on above: Performed By: #### C VDTBH #### [facility] Laboratory [address] [place] [address] Dr. Ramses Dumas Streptococcus Detected Critically abnormal NOT DETECTED [facility] Comment on above: Performed By: #### C VDTBH #### [facility] Laboratory [address] [place] [address] Dr. Ramses Dumas Efrain/Ross Resist. Gene Not detected Normal NOT DETECTED [facility] Comment on above: Performed By: #### C VDTBH #### [facility] Laboratory [address] [place] [address] Dr. Ramses Dumas VIM Resistant Gene Not Applicable Normal NOT DETECTED [facility] Comment on above: Performed By: #### C VDTBH #### [facility] Laboratory [address] [place] [address] Dr. Ramses Dumas CBC AUTO DIFFon 08-22-2022 BASO # 0.1 103/ul Normal 0.0-0.1 [facility] Comment on above: Performed By: #### U KJ 24 #### [facility] Laboratory [address] [place] [address] Dr. Ramses Dumas Basophils/100 WBC (Bld) 0.7 % Normal 0.2-2.0 [facility] Comment on above: Performed By: #### U KJ 24 #### [facility] Laboratory [address] [place] [address] Dr. Ramses Dumas EO # 0.1 103/ul Normal 0.0-0.7 [facility] Comment on above: Performed By: #### U KJ 24 #### [facility] Laboratory [address] [place] [address] Dr. Ramses Dumas Eosinophils/100 WBC (Bld) 1.7 % Normal 0.9-7.0 [facility] Comment on above: Performed By: #### U KJ 24 #### [facility] Laboratory [address] [place] [address] Dr. Ramses Dumas Erythrocyte distribution width (RBC) [Ratio] 13.2 % Normal 11.0-15.0 [facility] Comment on above: Performed By: #### U KJ 24 #### [facility] Laboratory [address] [place] [address] Dr. Ramses Dumas Hematocrit (Bld) [Volume fraction] 39.8 % Normal 36.0-48.0 [facility] Comment on above: Performed By: #### U KJ 24 #### [facility] Laboratory [address] [place] [address] Dr. Ramses Dumas Hemoglobin (Bld) [Mass/Vol] 12.9 g/dL Normal 12.0-16.0 [facility] Comment on above: Performed By: #### U KJ 24 #### [facility] Laboratory [address] [address] [address] Ramses Dumas IG # 0.02 10e3/ul Normal 0.00-0.03 [facility] Comment on above: Performed By: #### U KJ 24 #### [facility] Laboratory [address] [place] [address] Dr. Ramses Dumas IG % 0.2 % Normal 0.0-0.5 [facility] Comment on above: Performed By: #### U KJ 24 #### [facility] Laboratory [address] [place] [address] Dr. Ramses Dumas LYMPH # 3.2 103/ul Normal 1.2-3.8 [facility] Comment on above: Performed By: #### U KJ 24 #### [facility] Laboratory [address] [place] [address] Dr. Ramses Dumas Lymphocytes/100 WBC (Bld) 40.0 % Normal 20.5-60.0 [facility] Comment on above: Performed By: #### U KJ 24 #### [facility] Laboratory [address] [place] [address] Dr. Ramses Dumas MANUAL DIFF REQ NO Normal [facility] Comment on above: Performed By: #### U KJ 24 #### [facility] Laboratory [address] [place] [address] Dr. Ramses Dumas MCH (RBC) [Entitic mass] 26.6 pg Critically low 26.7-34.0 [facility] Comment on above: Performed By: #### U KJ 24 #### [facility] Laboratory [address] [place] [address] Dr. Ramses Dumas MCHC (RBC) [Mass/Vol] 32.4 g/dL Normal 29.9-35.2 [facility] Comment on above: Performed By: #### U KJ 24 #### [facility] Laboratory [address] [place] [address] Dr. Ramses Dumas MCV (RBC) [Entitic vol] 82.1 fL Normal 81.0-99.0 [facility] Comment on above: Performed By: #### U KJ 24 #### [facility] Laboratory [address] [place] [address] Dr. Ramses Dumas MONO # 0.6 103/ul Normal 0.3-0.8 [facility] Comment on above: Performed By: #### U KJ 24 #### [facility] Laboratory [address] [place] [address] Dr. Ramses Dumas Monocytes/100 WBC (Bld) 7.5 % Normal 1.7-12.0 [facility] Comment on above: Performed By: #### U KJ 24 #### [facility] Laboratory [address] [place] [address] Dr. Ramses Dumas NEUT # 4.0 103/ul Normal 1.4-6.5 [facility] Comment on above: Performed By: #### U KJ 24 #### [facility] Laboratory [address] [place] [address] Dr. Ramses Dumas Neutrophils/100 WBC (Bld) 49.9 % Normal 43.0-75.0 [facility] Comment on above: Performed By: #### U KJ 24 #### [facility] Laboratory [address] [place] [address] Dr. Ramses Dumas Platelet mean volume (Bld) [Entitic vol] 9.3 fL Critically low 9.5-13.5 [facility] Comment on above: Performed By: #### U KJ 24 #### [facility] Laboratory [address] [place] [address] Dr. Ramses Dumas PLT 354 103/ul Normal 150-450 [facility] Comment on above: Performed By: #### U KJ 24 #### [facility] Laboratory [address] [place] [address] Dr. Ramses Dumas RBC 4.85 106/ul Normal 4.20-5.40 [facility] Comment on above: Performed By: #### U KJ 24 #### [facility] Laboratory [address] [place], [place] [address] Dr. Ramses Dumas WBC 8.1 103/ul Normal 4.0-11.0 [facility] Comment on above: Performed By: #### U KJ 24 #### [facility] Laboratory [address] [place], [place] [address] ABD/PELVIS WO CONon [...] as clinically indicated. Electronically authenticated by: KESHIA SAID Date: 2022-08-22 07:04 Normal [facility] Covid-19 PCR (CVDTB)on SARS-CoV-2 (COVID-19) RNA FRANCESCA+probe Ql (Unsp spec) Not detected Normal NOT DETECTED [facility] Comment on above: Result Comment: [...] for this test is supported by the Conductor And Engineer of Health and Human Service's declaration that [...] By: #### C MP #### [facility] Laboratory [address] [place] [address] Dr. Ramses Dumas ER URINE PROFILEon 2 Bilirubin Ql (U) Negative Normal NEGATIVE [facility] Comment on above: Performed By: #### U RCX #### [facility] Laboratory [address] [place] [address] Dr. Ramses Dumas Clarity (U) CLEAR Normal CLEAR [facility] Comment on above: Performed By: #### U RCX #### [facility] Laboratory [address] [place] [address] Dr. Ramses Dumas Color (U) LT. YELLOW Normal YELLOW [facility] Comment on above: Performed By: #### U RCX #### [facility] Laboratory [address] [place] [address] Dr. Ramses Dumas ERUDEVANTED A micrscopic examination will be performed if indicated. Normal [facility] Comment on above: Performed By: #### U RCX #### [facility] Laboratory [address] [place] [address] Dr. Ramses Dumas Glucose Ql (U) Negative Normal NEGATIVE The [facility] Comment on above: Performed By: #### U RCX #### [facility] Laboratory [address] [place] [address] Dr. Ramses Dumas Hemoglobin Ql (U) SMALL Abnormal NEGATIVE The [facility] Comment on above: Performed By: #### U RCX #### [facility] Laboratory [address] [address] [address] Ramses Dumas Ketones Ql (U) Negative Normal NEGATIVE The [facility] Comment on above: Performed By: #### U RCX #### [facility] Laboratory [address] [address] [address] Ramses Dumas LEUKOCYTES SMALL Abnormal NEGATIVE [facility] Comment on above: Performed By: #### U RCX #### [facility] Laboratory [address] [place] [address] Dr. Ramses Dumas Nitrite Ql (U) Negative Normal NEGATIVE The [facility] Comment on above: Performed By: #### U RCX #### [facility] Laboratory [address] [place] [address] Dr. Ramses Dumas pH (U) 7.0 [pH] Normal 5-9 [facility] Comment on above: Performed By: #### U RCX #### [facility] Laboratory [address] [address] [address] Ramses Dumas Protein (U) [Mass/Vol] 30 mg/dL Abnormal NEGAT CHRIS/ TRACE [facility] Comment on above: Performed By: #### U RCX #### [facility] Laboratory [address] [place] [address] Dr. Ramses Dumas SPEC GRAVITY 1.020 Normal 1.005-<=1.02 5 [facility] Comment on above: Performed By: #### U RCX #### [facility] Laboratory [address] [address] [address] Ramses Dumas UR MICRO IND INDICATED Normal [facility] Comment on above: Performed By: #### U RCX #### [facility] Laboratory [address] [place] [address] Dr. Ramses Dumas Urobilinogen Qn (U) 0.2 {Lucero'U}/dL Normal 0.2 - 1. 0 [facility] Comment on above: Performed By: #### U RCX #### [facility] Laboratory [address] [place] [address] Dr. Ramses Dumas LACTATE/LACTIC ACIDon 2021 Lactate [Moles/Vol] 2.3 mmol/L Critically high 0.4-1.9 [facility] Comment on above: Performed By: #### U RCX #### [facility] Laboratory [address] [address] [address] Ramses Dumas URon 08-22-2022 , QUAL Negative Normal NEGATIVE [facility] Comment on above: Performed By: #### U RCX #### [facility] Laboratory [address] [address] [address] Ramses Dumas PROF 14(COMP METB)on 022 Albumin [Mass/Vol] 3.5 g/dL Normal 3.4-5.0 [facility] Comment on above: Performed By: #### U RCX #### [facility] Laboratory [address] [place] [address] Dr. Ramses Dumas Albumin/Globulin [Mass ratio] 0.9 {ratio} Normal [facility] Comment on above: Performed By: #### U RCX #### [facility] Laboratory [address] [place] [address] Dr. Ramses Dumas ALP [Catalytic activity/Vol] 92 U/L Normal 46-116 [facility] Comment on above: Performed By: #### U RCX #### [facility] Laboratory [address] [place] [address] Dr. Ramses Dumas ALT [Catalytic activity/Vol] 139 U/L Critically high 14-59 [facility] Comment on above: Performed By: #### U RCX #### [facility] Laboratory [address] [address] [address] Ramses Dumas Anion gap [Moles/Vol] 10.2 mmol/L Normal [facility] Comment on above: Performed By: #### U RCX #### [facility] Laboratory [address] [address] [address] Ramses Dumas AST [Catalytic activity/Vol] 112 U/L Critically high 15-37 [facility] Comment on above: Performed By: #### U RCX #### [facility] Laboratory [address] [place] [address] Dr. Ramses Dumas Bilirubin [Mass/Vol] 0.2 mg/dL Normal 0.2-1.0 [facility] Comment on above: Performed By: #### U RCX #### [facility] Laboratory [address] [address] [address] Ramses Dumas Calcium [Mass/Vol] 8.8 mg/dL Normal 8.5-10.1 [facility] Comment on above: Performed By: #### U RCX #### [facility] Laboratory [address] [address] [address] Ramses Dumas Chloride [Moles/Vol] 105 mmol/L Normal 98-107 [facility] Comment on above: Performed By: #### U RCX #### [facility] Laboratory [address] [place] [address] Dr. Ramses Dumas CO2 [Moles/Vol] 26.3 mmol/L Normal 21.0-32.0 [facility] Comment on above: Performed By: #### U RCX #### [facility] Laboratory [address] [address] [address] Ramses Dumas Creatinine [Mass/Vol] 0.95 mg/dL Normal 0.55-1.02 [facility] Comment on above: Performed By: #### U RCX #### [facility] Laboratory [address] [place] [address] Dr. Ramses Dumas EGFR-AF [facility] >60 Normal >=60 [facility] Comment on above: Performed By: #### U RCX #### [facility] Laboratory [address] [address] [address] Ramses Dumas EGFR-NON AF [facility] >60 Normal >=60 [facility] Comment on above: Performed By: #### U RCX #### [facility] Laboratory [address] [address] [address] Ramses Dumas Globulin (S) [Mass/Vol] 3.9 g/dL Normal [facility] Comment on above: Performed By: #### U RCX #### [facility] Laboratory [address] [address] [address] Ramses Dumas Glucose [Mass/Vol] 137 mg/dL Critically high 74-106 [facility] Comment on above: Performed By: #### U RCX #### [facility] Laboratory [address] [place] [address] Dr. Ramses Dumas Potassium [Moles/Vol] 3.5 mmol/L Normal 3.5-5.1 [facility] Comment on above: Performed By: #### U RCX #### [facility] Laboratory [address] [place] [address] Dr. Ramses Dumas Protein [Mass/Vol] 7.4 g/dL Normal 6.4-8.[address] [facility] Comment on above: Performed By: #### U RCX #### [facility] Laboratory [address] [place] [address] Dr. Ramses Dumas Sodium [Moles/Vol] 138 mmol/L Normal 136-145 [facility] Comment on above: Performed By: #### U RCX #### [facility] Laboratory [address] [place] [address] Dr. Ramses Dumas Urea nitrogen [Mass/Vol] 11.0 mg/dL Normal 7.0-18.0 [facility] Comment on above: Performed By: #### U RCX #### [facility] Laboratory [address] [place] [address] Dr. Ramses Dumas Urea nitrogen/Creatinine [Mass ratio] 11.6 mg/mg Normal [facility] Comment on above: Performed By: #### U RCX #### [facility] Laboratory [address] [place] [address] Dr. Ramses Dumas URINE MICROSCOPIC ONLYon BACTERIA LARGE Abnormal NONE SEEN [facility] Comment on above: Performed By: #### U RCX #### [facility] Laboratory [address] [place] [address] Dr. Ramses Dumas Bacteria identified Cx Nom (U) CX ALREADY ORDERED Normal [facility] Comment on above: Performed By: #### U RCX #### [facility] Laboratory [address] [place] [address] Dr. Ramses Dumas CAST NONE SEEN Normal NONE SEEN [facility] Comment on above: Performed By: #### U RCX #### [facility] Laboratory [address] [address] [address] Ramses Dumas Crystals LM Nom (Urine sed) NONE SEEN Normal NONE SEEN [facility] Comment on above: Performed By: #### U RCX #### [facility] Laboratory [address] [address] [address] Ramses Dumas Epithelial cells LM Ql (Urine sed) MANY Abnormal NONE SEEN /RARE [facility] Comment on above: Performed By: #### U RCX #### [facility] Laboratory [address] [address] [address] Ramses Dumas MUCOUS NONE SEEN Normal NONE SEEN [facility] Comment on above: Performed By: #### U RCX #### [facility] Laboratory [address] [place] [address] Dr. Ramses Dumas RBC 5-10 Abnormal 0-2 [facility] Comment on above: Performed By: #### U RCX #### [facility] Laboratory [address] [address] [address] Ramses Dumas WBC 50-75 Abnormal NONE SEEN [facility] Comment on above: Performed By: #### U RCX #### [facility] Laboratory [address] [place] [address] Dr. Ramses Dumas CULTURE URINEon 08-15-2022 CULTURE [...] >=16 R F Normal [facility] Comment on above: Performed By: #### U RCX #### [facility] Laboratory [address] [place] [address] Dr. Ramses Dumas Lipid Panelon 08-14-2022 Cholesterol [Mass/Vol] 162 mg/dL Normal 140-200 [facility] Comment on above: Result Comment: Chol less than 200 mg/dl low risk Chol 201-239 mg/dl borderline risk Chol 240 mg/dl and greater high risk Performed By: #### L IPID, TSH3 wRFLX, [id number] #### [facility] [address] Cholesterol in HDL [Mass/Vol] 42 mg/dL Normal 35-85 [facility] Comment on above: Result Comment: HDL CHOL ATP-III CLASSIFICATION Cardiovascular Risk HDL > or equal to 60 mg/dL LOW HDL < 40 mg/dL HIGH Performed By: #### L IPID, TSH3 wRFLX, [id number] #### [facility] [address] Cholesterol.total/Chol esterol in HDL [Mass ratio] 3.9 {ratio} Normal <5.0 [facility] Comment on above: Performed By: #### L IPID, TSH3 wRFLX, [id number] #### [facility] [address] [place] [address] LDL Cholesterol,Calculated 108 mg/dL High 0-100 [facility] Comment on above: Result Comment: LDL ATP III CLASSIFICATION LDL less than 100 mg/dL Optimal LDL 100-129 mg/dL Near or above optimal LDL 130-159 mg/dL Borderline high LDL 160-189 mg/dL High LDL greater than 189 mg/dL Very high Performed By: #### L IPID, TSH3 wRFLX, [id number] #### [facility] [address] [place] [address] Triglyceride w/Reflex 59 mg/dL Normal 35-149 [facility] Comment on above: Result Comment: TRIG ATP III CLASSIFICATION TRIG less than 150 mg/dL Normal TRIG 150-199 mg/dL Borderline high TRIG 200-500 mg/dL High TRIG greater than 500 mg/dL Very high Standard traceable to the Center for Disease Conrtrol and Prevention (CDC) test method. Performed By: #### L IPID, TSH3 wRFLX, [id number] #### [id number] [facility] VLDL CHOLESTEROL 11 mg/dL Normal [facility] Comment on above: Performed By: #### L IPID, TSH3 wRFLX, [id number] #### [facility] [address] Thyroid Stim Hormone w/Rflxo n 08-14-2022 Thyroid Stim Hormone w/Rflx 0.84 u[iU]/mL Normal 0.45-5.33 [facility] Comment on above: Performed By: #### L IPID, TSH3 wRFLX, [id number] #### [facility] [address] [place] [address] Vitamin D 25 Hydroxy Totalon 08-14-2022 Vitamin D 25 Hydroxy Total 17.7 ng/mL Low 30-100 [facility] Comment on above: Result Comment: THA MIN D STATUS 25(OH)VITAMIN D RANGE (ng/mL) Deficient <20 Insufficient 20 to <30 Sufficient 30 to 100 Reference: José Miguel MF,Jennifer NC, Mady MARTI, et al. Evaluation,treatment, and prevention of vitamin D deficiency; an Endocrine Society clinical practice guideline. JCEM. 2010; 96(7):1911-30. PERFORMED BY: [place] [address] PATHOLOGIST GENETICS NURSE AB ALCANTARA M.D. Performed By: #### L IPID, TSH3 wRFLX, [id number] #### [address] ACETAMINOPHENon 08-13-2022 Acetaminophen [Mass/Vol] ug/mL Critically low 10.0-30.0 [facility] Comment on above: Performed By: #### U RCX #### [facility] Laboratory [address] [address] [address] Ramses Dumas CBC AUTO DIFFon 08-13-2022 BASO # 0.1 103/ul Normal 0.0-0.1 [facility] Comment on above: Performed By: #### C VDTBH #### [facility] Laboratory [address] [address] [address] Ramses Dumas Basophils/100 WBC (Bld) 0.8 % Normal 0.2-2.0 [facility] Comment on above: Performed By: #### C VDTBH #### [facility] Laboratory [address] [place] [address] Dr. Ramses Dumas EO # 0.1 103/ul Normal 0.0-0.7 [facility] Comment on above: Performed By: #### C VDTBH #### [facility] Laboratory [address] [place] [address] Dr. Ramses Dumas Eosinophils/100 WBC (Bld) 1.6 % Normal 0.9-7.0 [facility] Comment on above: Performed By: #### C VDTBH #### [facility] Laboratory [address] [place] [address] Dr. Ramses Dumas Erythrocyte distribution width (RBC) [Ratio] 13.3 % Normal 11.0-15.0 [facility] Comment on above: Performed By: #### C VDTBH #### [facility] Laboratory [address] [place] [address] Dr. Ramses Dumas Hematocrit (Bld) [Volume fraction] 40.6 % Normal 36.0-48.0 [facility] Comment on above: Performed By: #### C VDTBH #### [facility] Laboratory [address] [place] [address] Dr. Ramses Dumas Hemoglobin (Bld) [Mass/Vol] 13.2 g/dL Normal 12.0-16.0 [facility] Comment on above: Performed By: #### C VDTBH #### [facility] Laboratory [address] [place] [address] Dr. Ramses Dumas IG # 0.01 10e3/ul Normal 0.00-0.03 [facility] Comment on above: Performed By: #### C VDTBH #### [facility] [address] [place] [address] Dr. Ramses Dumas IG % 0.2 % Normal 0.0-0.5 [facility] Comment on above: Performed By: #### C VDTBH #### [facility] [address] [place] [address] Dr. Ramses Dumas LYMPH # 2.4 103/ul Normal 1.2-3.8 [facility] Comment on above: Performed By: #### C VDTBH #### [facility] [address] [place] [address] Dr. Ramses Dumas Lymphocytes/100 WBC (Bld) 37.7 % Normal 20.5-60.0 [facility] Comment on above: Performed By: #### C VDTBH #### [facility] [address] [place] [address] Dr. Ramses Dumas MANUAL DIFF REQ NO Normal [facility] Comment on above: Performed By: #### C VDTBH #### [facility] [address] [place] [address] Dr. Ramses Dumas MCH (RBC) [Entitic mass] 26.7 pg Normal 26.7-34.0 [facility] Comment on above: Performed By: #### C VDTBH #### [facility] [address] [place] [address] Dr. Ramses Dumas MCHC (RBC) [Mass/Vol] 32.5 g/dL Normal 29.9-35.2 [facility] Comment on above: Performed By: #### C VDTBH #### [facility] [address] [place] [address] Dr. Ramses Dumas MCV (RBC) [Entitic vol] 82.0 fL Normal 81.0-99.0 [facility] Comment on above: Performed By: #### C VDTBH #### [facility] [address] [place] [address] Dr. Ramses Dumas MONO # 0.6 103/ul Normal 0.3-0.8 [facility] Comment on above: Performed By: #### C VDTBH #### [facility] [address] [place] [address] Dr. Ramses Dumas Monocytes/100 WBC (Bld) 8.6 % Normal 1.7-12.0 [facility] Comment on above: Performed By: #### C VDTBH #### [facility] [address] [place] [address] Dr. Ramses Dumas NEUT # 3.3 103/ul Normal 1.4-6.5 [facility] Comment on above: Performed By: #### C VDTBH #### [facility] [address] [place] [address] Dr. Ramses Dumas Neutrophils/100 WBC (Bld) 51.1 % Normal 43.0-75.0 [facility] Comment on above: Performed By: #### C VDTBH #### [facility] [address] [place] [address] Dr. Ramses Dumas Platelet mean volume (Bld) [Entitic vol] 8.7 fL Critically low 9.5-13.5 [facility] Comment on above: Performed By: #### C VDTBH #### [facility] [address] [place] [address] Dr. Ramses Dumas PLT 409 103/ul Normal 150-450 [facility] Comment on above: Performed By: #### C VDTBH #### [facility] [address] [place] [address] Dr. Ramses Dumas RBC 4.95 106/ul Normal 4.20-5.40 [facility] Comment on above: Performed By: #### C VDTBH #### [facility] [address] [place] [address] Dr. Ramses Dumas WBC 6.4 103/ul Normal 4.0-11.0 [facility] Comment on above: Performed By: #### C VDTBH #### [facility] [address] [place] [address] Dr. Ramses Dumas Covid-19 PCR ([facility])on 07-20 SARS-CoV-2 (COVID-19) RNA FRANCESCA+probe Ql (Unsp spec) Not detected Normal NOT DETECTED [facility] Comment on above: Result Comment: [...] for this test is supported by the Conductor And Engineer of Health and Human Service's declaration that [...] longer be used). Performed By: #### C VDTB #### [facility] [address] [place] [address] Dr. Ramses Dumas DRUG SCREEN RAPID (URINE)on 08-13-2022 AMP Negative Normal NEGATIVE [facility] Comment on above: Performed By: #### C BC #### [facility] [address] [place] [address] Dr. Ramses Dumas BAR Negative Normal NEGATIVE [facility] Comment on above: Performed By: #### C BC #### [facility] [address] [place] [address] Dr. Ramses Dumas BUP Negative Normal NEGATIVE [facility] Comment on above: Performed By: #### C BC #### [facility] [address] [place] [address] Dr. Ramses Dumas BZO Negative Normal NEGATIVE [facility] Comment on above: Performed By: #### C BC #### [facility] [address] [place] [address] Dr. Ramses Dumas ODILIA Negative Normal NEGATIVE [facility] Comment on above: Performed By: #### C BC #### [facility] [address] [place] [address] Dr. Ramses Dumas CUT-OFFS SEE BELOW Normal [facility] Comment on above: Result Comment: AMP (Amphetamine): [...] By: #### C BC #### [facility] [address] [place] [address] Dr. Ramses Dumas DRUG CUT HEADER DRUG CLASS TEST SYSTEM CUT-OFF CONCENTRATIONS ARE FOLLOWS: Normal [facility] Comment on above: Performed By: #### C BC #### [facility] [address] [place] [address] Dr. Ramses Dumas mAMP Negative Normal NEGATIVE [facility] Comment on above: Performed By: #### C BC #### [facility] [address] [place] [address] Dr. Ramses Dumas MTD Negative Normal NEGATIVE [facility] Comment on above: Performed By: #### C BC #### [facility] [address] [place] [address] Dr. Ramses Dumas OPI Negative Normal NEGATIVE [facility] Comment on above: Performed By: #### C BC #### [facility] [address] [place] [address] Dr. Ramses Dumas OXY Negative Normal NEGATIVE [facility] Comment on above: Performed By: #### C BC #### [facility] [address] [place] [address] Dr. Ramses Dumas PCP Negative Normal NEGATIVE [facility] Comment on above: Performed By: #### C BC #### [facility] [address] [place] [address] Dr. Ramses Dumas PPX Negative Normal NEGATIVE [facility] Comment on above: Performed By: #### C BC #### [facility] [address] [place] [address] Dr. Ramses Dumas TCA Negative Normal NEGATIVE [facility] Comment on above: Performed By: #### C BC #### [facility] [address] [place] [address] Dr. Ramses Dumas THC Negative Normal NEGATIVE [facility] Comment on above: Performed By: #### C BC #### [facility] [address] [place] [address] Dr. Ramses Dumas ER URINE PROFILEon 2 Bilirubin Ql (U) Negative Normal NEGATIVE [facility] Comment on above: Performed By: #### C BC #### [facility] [address] [place] [address] Dr. Ramses Dumas Clarity (U) CLEAR Normal CLEAR [facility] Comment on above: Performed By: #### C BC #### [facility] [address] [place] [address] Dr. Ramses Dumas Color (U) LT. YELLOW Normal YELLOW [facility] Comment on above: Performed By: #### C BC #### [facility] [address] [place] [address] Dr. Ramses DELEON A micrscopic examination will be performed if indicated. Normal [facility] Comment on above: Performed By: #### C BC #### [facility] [address] [place] [address] Dr. Ramses Dumas Glucose Ql (U) Negative Normal NEGATIVE [facility] Comment on above: Performed By: #### C BC #### [facility] [address] [place] [address] Dr. Ramses Dumas Hemoglobin Ql (U) LARGE Abnormal NEGATIVE [facility] Comment on above: Performed By: #### C BC #### [facility] [address] [place] [address] Dr. Ramses Dumas Ketones Ql (U) Negative Normal NEGATIVE [facility] Comment on above: Performed By: #### C BC #### [facility] [address] [place] [address] Dr. Ramses Dumas LEUKOCYTES LARGE Abnormal NEGATIVE [facility] Comment on above: Performed By: #### C BC #### [facility] [address] [place] [address] Dr. Ramses Dumas Nitrite Ql (U) Positive Abnormal NEGATIVE [facility] Comment on above: Performed By: #### C BC #### [facility] [address] [place] [address] Dr. Ramses Dumas pH (U) 6.0 [pH] Normal 5-9 [facility] Comment on above: Performed By: #### C BC #### [facility] [address] [place] [address] Dr. Ramses Dumas Protein (U) [Mass/Vol] 30 mg/dL Abnormal NEGAT CHRIS/ TRACE [facility] Comment on above: Performed By: #### C BC #### [facility] [address] [place] [address] Dr. Ramses Dumas SPEC GRAVITY >=1.030 Abnormal 1.005-<=1.02 5 [facility] Comment on above: Performed By: #### C BC #### [facility] [address] [place] [address] Dr. Ramses Dumas UR MICRO IND INDICATED Normal [facility] Comment on above: Performed By: #### C BC #### [facility] [address] [place] [address] Dr. Ramses Dumas Urobilinogen Qn (U) 0.2 {Lucero'U}/dL Normal 0.2 - 1. 0 [facility] Comment on above: Performed By: #### C BC #### [facility] [address] [place] [address] Dr. Ramses Dumas ETHANOL (BLD ALC)on 08-13-20 ALC NOTE NOTE: 80 mg/dl is th e legal limit for a blood alcohol level Normal [facility] Comment on above: Performed By: #### B LDCX2 #### [facility] [address] [place] [address] Dr. Ramses Dumas Ethanol [Mass/Vol] mg/dL Normal [facility] Comment on above: Performed By: #### B LDCX2 #### [facility] [address] [place] [address] Dr. Ramses Dumas URon 08-13-2022 , QUAL Negative Normal NEGATIVE [facility] Comment on above: Performed By: #### C BC #### [facility] [address] [place] [address] Dr. Ramses Dumas PROF 14(COMP METB)on 022 Albumin [Mass/Vol] 3.8 g/dL Normal 3.4-5.0 [facility] Comment on above: Performed By: #### U RCX #### [facility] [address] [place] [address] Dr. Ramses Dumas Albumin/Globulin [Mass ratio] 0.9 {ratio} Normal [facility] Comment on above: Performed By: #### U RCX #### [facility] [address] [place] [address] Dr. Ramses Dumas ALP [Catalytic activity/Vol] 82 U/L Normal 46-116 [facility] Comment on above: Performed By: #### U RCX #### [facility] [address] [place] [address] Dr. Ramses Dumas ALT [Catalytic activity/Vol] 41 U/L Normal 14-59 [facility] Comment on above: Performed By: #### U RCX #### [facility] [address] [place] [address] Dr. Ramses Dumas Anion gap [Moles/Vol] 9.3 mmol/L Normal [facility] Comment on above: Performed By: #### U RCX #### [facility] [address] [place] [address] Dr. Ramses Dumas AST [Catalytic activity/Vol] 21 U/L Normal 15-37 [facility] Comment on above: Performed By: #### U RCX #### [facility] [address] [place] [address] Dr. Ramses Dumas Bilirubin [Mass/Vol] 0.3 mg/dL Normal 0.2-1.0 [facility] Comment on above: Performed By: #### U RCX #### [facility] [address] [place] [address] Dr. Ramses Dumas Calcium [Mass/Vol] 8.9 mg/dL Normal 8.5-10.[address] [facility] Comment on above: Performed By: #### U RCX #### [facility] [address] [place] [address] Dr. Ramses Dumas Chloride [Moles/Vol] 105 mmol/L Normal 98-107 [facility] Comment on above: Performed By: #### U RCX #### [facility] [address] [address] [address] Ramses Dumas CO2 [Moles/Vol] 28.5 mmol/L Normal 21.0-32.0 [facility] Comment on above: Performed By: #### U RCX #### [facility] [address] [address] [address] Ramses Dumas Creatinine [Mass/Vol] 0.81 mg/dL Normal 0.55-1.02 [facility] Comment on above: Performed By: #### U RCX #### [facility] [address] [address] [address] Ramses Dumas EGFR-AF [facility] >60 Normal >=60 [facility] Comment on above: Performed By: #### U RCX #### [facility] [address] [address] [address] Ramses Dumas EGFR-NON AF [facility] >60 Normal >=60 [facility] Comment on above: Performed By: #### U RCX #### [facility] [address] [address] [address] Ramses Dumas Globulin (S) [Mass/Vol] 4.1 g/dL Normal [facility] Comment on above: Performed By: #### U RCX #### [facility] [address] [address] [address] Ramses Dumas Glucose [Mass/Vol] 100 mg/dL Normal 74-[address] [facility] Comment on above: Performed By: #### U RCX #### [facility] [address] [address] [address] Ramses Dumas Potassium [Moles/Vol] 3.8 mmol/L Normal 3.5-5.1 [facility] Comment on above: Performed By: #### U RCX #### [facility] [address] [place] [address] Dr. Ramses Dumas Protein [Mass/Vol] 7.9 g/dL Normal 6.4-8.[address] [facility] Comment on above: Performed By: #### U RCX #### [facility] [address] [place] [address] Dr. Ramses Dumas Sodium [Moles/Vol] 139 mmol/L Normal 136-[address] [facility] Comment on above: Performed By: #### U RCX #### [facility] [address] [place] [address] Dr. Ramses Dumas Urea nitrogen [Mass/Vol] 10.0 mg/dL Normal 7.0-18.0 [facility] Comment on above: Performed By: #### U RCX #### [facility] [address] [place] [address] Dr. Ramses Dumas Urea nitrogen/Creatinine [Mass ratio] 12.3 mg/mg Normal [facility] Comment on above: Performed By: #### U RCX #### [facility] [address] [place] [address] Dr. Ramses Dumas SALICYLATEon 08-13-2022 SALICYLATE <2.8 Normal <=19.9 [facility] Comment on above: Performed By: #### U RCX #### [facility] [address] [place] [address] Dr. Ramses Dumas URINE MICROSCOPIC ONLYon BACTERIA LARGE Abnormal NONE SEEN [facility] Comment on above: Performed By: #### C BC #### [facility] [address] [place] [address] Dr. Ramses Dumas Bacteria identified Cx Nom (U) INDICATED Normal [facility] Comment on above: Performed By: #### C BC #### [facility] [address] [place] [address] Dr. Ramses Dumas CA OX CRYSTALS RARE Normal [facility] Comment on above: Performed By: #### C BC #### [facility] [address] [place] [address] Dr. Ramses Dumas CAST NONE SEEN Normal NONE SEEN [facility] Comment on above: Performed By: #### C BC #### [facility] [address] [place] [address] Dr. Ramses Dumas Crystals LM Nom (Urine sed) SEEN Abnormal NONE SEEN [facility] Comment on above: Performed By: #### C BC #### [facility] [address] [place] [address] Dr. Ramses Dumas Epithelial cells LM Ql (Urine sed) MODERATE Abnormal NONE SEEN /RARE [facility] Comment on above: Performed By: #### C BC #### [facility] [address] [place] [address] Dr. Ramses Dumas MUCOUS NONE SEEN Normal NONE SEEN [facility] Comment on above: Performed By: #### C BC #### [facility] [address] [place] [address] Dr. Ramses Dumas RBC 10-20 Abnormal 0-2 [facility] Comment on above: Performed By: #### C BC #### [facility] [address] [place] [address] Dr. Ramses Dumas WBC 20-50 Abnormal NONE SEEN [facility] Comment on above: Performed By: #### C BC #### [facility] [address] [place] [address] Dr. Ramses Dumas Pap IG,rfx Aptima HPV all pt hon 08-09-2022 . . Normal [facility] Comment on above: Performed By: #### C MP #### [facility] [address] [place] [address] Dr. Ramses Dumas DIAGNOSIS: Comment Abnormal [facility] Comment on above: Result Comment: EPIT HELIAL CELL ABNORMALITY. LOW GRADE SQUAMOUS INTRAEPITHELIAL LESION (LSIL). Performed By: #### C MP #### [facility] [address] [place] [address] Dr. Ramses Dumas Electronically signed by: Comment Normal [facility] Comment on above: Result Comment: Arnaud Joseph MD, Pathologist Performed By: #### C MP #### [facility] [address] [place] [address] Dr. Ramses Dumas HPV Aptima Negative Normal Negative [facility] Comment on above: Result Comment: This nucleic acid amplification test detects fourteen high-risk HPV types (16,18,31,33,35,39,45,51,52,56,58,59,66,68) without differentiation. Performed By: #### C MP #### [facility] [address] [place] [address] Dr. Ramses Dumas Methodology: Comment Normal [facility] Comment on above: Result Comment: This liquid based ThinPrep(R) pap test was screened with the use of an image guided system. Performed By: #### C MP #### [facility] [address] [place] [address] Dr. Ramses Dumas Note: Comment Normal [facility] Comment on above: Result Comment: The Pap smear is a screening test designed to aid in the detection of premalignant and malignant conditions of the uterine cervix. It is not a diagnostic procedure and should not be used as the sole means of detecting cervical cancer. Both false-positive and false-negative reports do occur. . Performed By: #### C MP #### [facility] [address] [place] [address] Dr. Ramses Dumas Pathologist Provided ICD10 Comment Normal [facility] Comment on above: Result Comment: [id number]. [id number] Performed By: #### C MP #### [facility] [address] [place] [address] Dr. Ramses Dumas Performed by: Comment Normal [facility] Comment on above: Result Comment: Gail Ruano, Machine Stripper (ASCP) Performed By: #### C MP #### [facility] [address] [place] [address] Dr. Ramses Dumas Reflex Criteria: Comment Normal [facility] Comment on above: Result Comment: See below for HPV testing results. . Performed By: #### C MP #### [facility] [address] [place] [address] Dr. Ramses Dumas Specimen adequacy: Comment Normal [facility] Comment on above: Result Comment: Sati sfactory for evaluation. Endocervical and/or squamous metaplastic cells (endocervical component) are present. Performed By: #### C MP #### [facility] [address] [place] [address] Dr. Ramses Dumas Vital Signs Date Time Vital Sign Value Performing Clinician Faci lity 03-20-2023 10:30-0400 Blood Pressure Location Caesar VILLA [facility] 03-20-2023 10:30-0400 Diastolic blood pressure 73 mm[Hg] Caesar VILLA [facility] 03-20-2023 10:30-0400 Heart rate 80 /min Caesar VILLA [facility] 03-20-2023 10:30-0400 Respiratory rate 16 /min Caesar VILLA [facility] 03-20-2023 10:30-0400 Systolic blood pressure 128 mm[Hg] Caesar VILLA [facility] Encounters Encounter Date Encounter Type Care Provider Facility Start: 12-04-2023 ambulatory Caesar VILLA Facili ty:[facility] Start: 12-04-2023 End: 12-04-2023 Patient encounter procedure Caesar VILLA [facility] Start: 04-09-2023 End: 04-10-2023 ambulatory Caesar VILLA Facility:[id number] Start: 03-20-2023 End: 03-21-2023 ambulatory Caesar VILLA Facility:[facility] Start: 03-20-2023 End: 03-20-2023 Patient encounter procedure Caesar VILLA [facility] Start: 02-16-2023 End: 02-16-[address] DOMINGO DAS . Facility: Start: 02-02-2023 End: 02-02-[address] DOMINGO DAS . Facility: Start: 12-26-2022 End: 12-27-2022 ambulatory Caesar VILLA Facility:[facility] Start: 12-26-2022 End: 12-26-2022 Patient encounter procedure Caesar VILLA [facility] Start: 12-16-2022 End: 12-17-[address] CAESAR VILLA . Facility: Start: 12-15-2022 End: 12-16-[address] CAESAR VILLA . Facility:[facility] Start: 11-27-[address] DOMINGO DAS . Facili ty:[facility] Start: 11-07-2022 End: 11-07-[address] DOMINGO DAS . Facility:[facility] Start: 11-04-2022 Encounter for preprocedural cardiovascular examination DR TOMASZ LOZADA . [facility] Start: 11-04-2022 Encounter for preprocedural laboratory examination DR TOMASZ LOZADA . [facility] Start: 11-03-2022 End: 11-04-2022 Encounter for preprocedural cardiovascular examination DR DOMINGO DAS . Facility: Start: 11-03-2022 End: 11-04-[address] DOMINGO DAS . Facility: Start: 09-20-2022 Encounter for preprocedural laboratory examination DR CAESAR VILLA . [facility] Start: 09-18-2022 End: 09-18-[address] CAESAR VILLA . Facility: Start: 09-16-2022 End: 09-17-[address] CAESAR VILLA . Facility: Start: 09-16-2022 End: 09-17-2022 Encounter for preprocedural laboratory examination DR CAESAR VILLA . Facility: Start: 09-05-2022 End: 09-05-2022 ambulatory ORA BOND . Facility: Start: 09-04-2022 End: 09-04-2022 ambulatory DANIEL SANTIAGO Facility:[facility] Start: 09-04-2022 End: 09-04-2022 ambulatory Daniel Santiago TREER.COLLAR SEPARATOR Work Phone: Urology Comment on above: NO SHOW (Primary Dx) Start: 09-04-2022 End: 09-04-2022 Telemedicine consultation with patient Daniel Santiago APRFlaquitaCOLLAR SEPARATOR Work Phone: [facility] Start: 08-28-2022 End: 08-29-[address] ERWIN MOORE Facility:[facility] Start: 08-22-2022 End: 08-24-[address] DOMINGO DAS . Facility:[facility] Start: 08-13-2022 End: 08-16-2022 Evaluation and management of inpatient Phil Avlies Facility:[facility] Start: 08-13-2022 End: 08-13-2022 ambulatory ORA BOND . Facility:[facility] Start: 07-31-2022 Encounter for cervic al smear to confirm findings of recent normal smear following initial abnormal smear DR TOMASZ LOZADA . [facility] Start: 07-30-2022 End: 07-30-2022 ambulatory [...] Treatment Date Care Activity Detail Author Start: 06-19-2022 Influenza vaccination INFLUENZA (#1) [facility] Start: 10-19-2021 DEPRESSION ASSESSMENT DEPRESSION ASS ESSMENT [facility] Start: 2021 HPV TESTING HPV TESTING [facility] Start: 2012 PAP TESTING PAP TESTING [facility] Start: 2010 Urine microalbumin profile DTAP,TDAP ,TD (1 - Tdap) [facility] Start: 2009 HEPATITIS C SCREENING HEPATITIS C SC REENING [facility] Start: 2009 HIV SCREENING HIV SCREENING [facility] Start: 03-14-1992 COVID-19 VACCINE (#1) COVID-19 VACCI NE (#1) [facility] Start: 1991 HEPATITIS B (1 of 3 - 3-dose series) HEPATITIS B (1 of 3 - 3-dose series) [facility] Immunizations Immunization Date Immunization Notes Care Provider Beata moore 08-01-2019 influenza virus vaccine, unspecified formulation Caesar VILLA [facility] 08-09-2018 tetanus toxoid, redu franco diphtheria toxoid, and acellular pertussis vaccine, adsorbed Caesar VILLA [facility] 08-08-2018 influenza virus vaccine, unspecified formulation Caesar VILLA [facility] 06-19-2004 hepatitis B vaccine, pediatric or pediatric/adolescent dosage Caesar VILLA [facility] 03-27-2004 hepatitis B vaccine, pediatric or pediatric/adolescent dosage Caesar VILLA [facility] 12-18-2003 hepatitis B vaccine, pediatric or pediatric/adolescent dosage Caesar VILLA [facility] 12-18-2003 measles, mumps and rubella virus vaccine Caesar VILLA [facility] 04-10-1993 DTaP, unspecified formulation Caesardinesh VILLA [facility] 04-10-1993 poliovirus vaccine, unspecified formulation Caesar VILLA [facility] 12-28-1992 Hib, unspecified formulation Caesar VILLA [facility] 12-28-1992 measles, mumps and rubella virus vaccine Caesar VILLA [facility] 03-26-1992 Hib, unspecified formulation Caesar VILLA [facility] 01-18-1992 Hib, unspecified formulation Caesar VILLA [facility] 1991 Hib, unspecified formulation Caesar VILLA [facility] Payers Date Payer Category Payer Self-pay 2021 Medicaid [place] MEDICA[employer] TERM 09/17 [facility] MEDICAID [id number] 2021-Present [phone] [address] [place] [address] Medicaid [id number] 1991 Unknown [id number] 2.16.840.1.003128.3.579.2.593 1991 Unknown [id number] 2.16.840.1.066451.3.579.2.593 1991 Unknown [id number] 2.16.840.1.636924.3.579.2.593 1991 Unknown [id number] 2.16.840.1.084444.3.579.2.593 1991 Unknown [id number] 2.16.840.1.153490.3.579.2.593 1991 Unknown [id number] 2.16.840.1.963691.3.579.2.593 1991 Unknown [id number] 2.16.840.1.124551.3.579.2.593 1991 Unknown [id number] 2.16.840.1.552976.3.579.2.593 1991 Unknown [id number] 2.16.840.1.837587.3.579.2.593 1991 Unknown [id number] 2.16.840.1.734466.3.579.2.593 1991 Unknown [id number] 2.16.840.1.673103.3.579.2.593 1991 Unknown [id number] 2.16.840.1.648792.3.579.2.593 1991 Unknown [id number] 2.16.840.1.490868.3.579.2.593 1991 Unknown [id number] 2.16.840.1.919391.3.579.2.593 1991 Unknown [id number] 2.16.840.1.285724.3.579.2.593 1991 Unknown [id number] 2.16.840.1.055176.3.579.2.593 1991 Unknown [id number] 2.16.840.1.392564.3.579.2.727 1991 Unknown [id number] 2.16.840.1.383004.3.579.2.727 1991 Unknown [id number] 2.16.840.1.014327.3.579.2.727 1991 Unknown [id number] 2.16.840.1.241237.3.579.2.727 1959 Self-pay [id number] 1959 Unknown [id number] 1959 Unknown [id number] Unknown [id number] 2.16.840.1.669089.3.579.2.531 Social History Date Type Detail Facility Tobacco smoking status PAIS Tobacco smoking consumption unknown [facility] Start: 1991 Sex Assigned At Not on file C [facility] Start: 08-20-2021 End: 03-20-2023 Tobacco smoking status Never smoked tobacco (finding) [facility] Tobacco smoking status Never [facility] Sex Assigned At Female [facility] Functional Status Date Assessment Result Facility 03-20-2023 Functional Status N/A [facility] Clinical Notes 07-03-2022 to 03-20-2023 Daniel Santiago APRN.[facility] - 09/04/2022 7:40 AM EST Note Date & Type Note Facility 03-20-2023 Hospital Discharge instructions Follow Up Care 03/20/2023 11:51:58 With:IDALMIS BORDEN, Caesar Turner, URL Address: [address] [place], [place] [id number]- When: Unknown [facility] 03-20-2023 Hospital Discharge instructions Patient Education 03/20/2023 [...] include: ?8 oz (237 mL) of milk, vhkzvic-szeiwhfudxsh-ithuf milk, and calcium-fortifiedfruit juice. Calcium-fortified means that [...] ?Spinach (cooked), rhubarb, beets, sweet potatoes, and Montenegrin chard. ?Peanuts. ?Potato chips, syriac fries, and baked potatoes with skin on. ?Nuts and nut products. ?Chocolate. If you regularly take a diuretic medicine, make sure to eat at least 1 or 2 servings of fruits or vegetables that are high in potassium each day. These include: ?Avocado. ?Banana. ?Arenac, prune, carrot, or tomato juice. ?Baked potato. [...] magnesium, fish oil, or vitamin B6. Take xqex-dmf-osbeqtp and prescription medicines only as told by [...] Casseroles. Pizza. Lasagna. Frozen meals. Potato chips. Malian fries. The items listed above may not [...] provider. Document Revised: 06/16/2022 Document Reviewed: 06/16/2022 [employer] Patient Education 2022 [employer]. Follow Up Care 12/26/2022 08:46:46 With:IDALMIS BORDEN, Caesar Turner, URL Address: [facility] [address], [place] [address]- When: Unknown [facility] 11-07-2022 Note OPERATIVE NOTE OPERATION DATE: 11/07/2022 PROCEDURE: Mery endometrial ablation with LEEP. PREOPERATIVE DIAGNOSIS: Cervical dysplasia, menorrhagia. POSTOPERATIVE DIAGNOSIS: Cervical dysplasia, menorrhagia. ANESTHESIA: General. SURGEON: Tomasz Bernie, D.O. STEREOTYPER HELPER: None. BLOOD LOSS: 50 mL. URINE OUTPUT: [...] Room in stable condition. [facility] 09-25-2022 Hospital Discharge instructions Follow Up Care 09/25/2022 13:54:04 With:IDALMIS BORDEN, Caesar Turner, ALDOL Address: [address] [place] [address] When: Unknown [facility] 09-18-2022 Note OPERATIVE NOTE OPERATION DATE: 09/18/2022 [...] usual fashion. I started by passing a 22-Malian Olympus cystoscope per urethra and into the [...] removed. She was then transferred to a gurmoravia and wheeled to PACU in stable condition. [facility] 09-04-2022 Note HNO ID: [id number] Author: Daniel Santiago APRN.COLLAR SEPARATOR Service: ? Author Type: Nurse Practitioner Type: Progress Notes Filed: 09/04/2022 7:46 AM Note Text: The patient did not show up for this appointment. The patient did not show up for this appointment. [facility] 09-04-2022 History of Present illness Narrative The patient did not show up for this appointment. The patient did not show up for this appointment. documented in this encounter [facility] 07-03-2022 Note PROCEDURE: XR ANKLE LT MIN 3 V COMPARISON: None. HISTORY: Sprain of calcaneofibular ligament FINDINGS: BONES:No fracture, acute abnormality, or significant arthropathy. SOFT TISSUES:Extensive lateral soft tissue swelling EFFUSION:None visible. OTHER: Negative. IMPRESSION: Lateral soft tissue swelling. No acute fracture Electronically authenticated by: GLEN GRAFF Date: 2022-07-03 07:09 [facility] Evaluation + Plan note Future Appointments Appointment Date:03/20/2023 10:15:00 AM Scheduled Provider:Caesar VILLA MD Location:[facility] Appointment Type:URO Office Visit [facility] Evaluation + Plan note Future Appointments Appointment Date:12/04/2023 09:45:00 AM Scheduled Provider:Caesar VILLA MD Location:[facility] Appointment Type:URO Office Visit Diagnostic Tests PendingElectrolyte Panel 03/20/23 [facility] Evaluation note Diagnosis NO SHOW- Primary documented in this encounter [facility] course Narrative No data available for this section [facility] progress note No data available for this section [facility] Summary Purpose Family History No Family History Records FoundNo Family History Records FoundNo Family History Records FoundNo Family History Records Found No data available for this section Advance Directives No Advanced Directives Records FoundNo Advanced Directives Records FoundNo Advanced Directives Records FoundNo Advanced Directives Records Found Additional Source Comments INFORMATION SOURCE (unrecogn ized section and content) DATE CREATED AUTHOR 08/23/2022 [facility] DATE CREATED AUTHOR AUTHOR'S ORGANIZ ATION 09/06/2022 [facility] DATE CREATED AUTHOR AUTHOR'S ORGANIZ ATION 02/19/2023 [facility] DATE CREATED AUTHOR AUTHOR'S ORGANIZ ATION 12/03/2023 [facility] Source Comments (unrecognize d section and content) In the event this informatio n is protected by the Federal Confidentiality of Alcohol and Drug Abuse Patient Records regulations: The Federal rules restrict any use of the information to criminally investigate or prosecute any alcohol or drug abuse patient.[facility] Reason for Visit (unrecogniz ed section and content) Reason Onset Date Comments No Show 09/04/2022 No show Care Teams (unrecognized sec tion and content) Personnel Name: Domingo Das MD Address: Address: [address] [place] [id number] Behavior Analyst Relationship Specialty Start Date End Date Domingo Das MD [address] [place], [place] [id number] Referring Family Medicine 09/01/22 FOR RECORDS PERTAINING [...] BE BASED ON THE PRIMARY CLINICAL RECORDS. [facility]. provides no warranty or guarantee of the accuracy or completeness of information in this document.
--- NOTE | 2023-12-06 06:27 | ED_ITS ---
HPI - Extremity Injury (Lower) General Chief Complaint: Extremity Injury, Lower Stated Complaint: LEFT SIDE PAIN Time Seen by Provider: 12/06/23 06:16 Source: patient Mode of arrival: walk-in Limitations: no limitations History of Present Illness HPI Narrative: patient states she slipped and fell last PM injuring her left hip. Denies injury elsewhere. No pain of the left knee, ankle and also denies lower back or abdominal pain. Related Data Home Medications Medication Instructions Recorded Confirmed No Known Home Medications 12/06/23 12/06/23 Allergies Allergy/AdvReac Type Severity Reaction Status Date / Time No Known Drug Allergies Allergy Verified 12/06/23 06:08 Review of Systems ROS Status of ROS 10 or more systems reviewed and unremark able except as noted in history and below [facility] Medical History (Updated 12/06/23 @ 06:47 by Seng Verdin MD) Dyspareunia Menorrhagia ?N92.0 - Excessive and frequent menstruation with regular cycle (ICD-10) Dysmenorrhea ?N94.6 - Dysmenorrhea, unspecified (ICD-10) Pelvic pain ?R10.2 - Pelvic and perineal pain (ICD-10) Anemia ?D64.9 - Anemia, unspecified (ICD-10) Kidney stones ?N20.0 - Calculus of kidney (ICD-10) S/P extracorporeal shock wave therapy (03/2023) ?Z98.890 - Other specified postprocedural states (ICD-10) Bipolar disorder ?F31.9 - Bipolar disorder, unspecified (ICD-10) Ureteral stone ?N20.1 - Calculus of ureter (ICD-10) Kidney stones ?N20.0 - Calculus of kidney (ICD-10) Surgical History (Updated 05/06/23 @ 06:42 by Araceli Recinos) History of wisdom tooth extraction ?K08.409 - Partial loss of teeth, unspecified cause, unspecified class (ICD- 10) H/O LEEP ?Z98.890 - Other specified postprocedural states (ICD-10) History of endometrial ablation ?Z98.890 - Other specified postprocedural states (ICD-10) S/P cystoscopy ?Z98.890 - Other specified postprocedural states (ICD-10) S/P ureteral stent placement ?Z96.0 - Presence of urogenital implants (ICD-10) H/O ureteroscopy ?Z98.890 - Other specified postprocedural states (ICD-10) History of cholecystectomy ?Z90.49 - Acquired absence of other specified parts of digestive tract (ICD- 10) Family History (Updated 03/30/23 @ 10:56 by Natalee Jules) Other Family history of hypertension Social History (Updated 04/24/23 @ 10:12 by Valencia Chavez NP) Within the past year, how often did you have a drink containing alcohol: monthly or less Smoking status: Never smoker Non-prescribed substance use: denies use 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 Highest level of school completed/degree received: Master's degree Are you now , , , , never or living with a partner: Gender Identity: female Exam Constitutional Vital Signs, click to edit/add: Last Vital Signs Temp 98.0 F 12/06/23 06:06 Pulse 80 12/06/23 06:06 Resp 16 12/06/23 06:06 BP 145/100 H 12/06/23 06:06 Pulse Ox 98 12/06/23 06:06 O2 Del Method Room Air 12/06/23 06:06 Common normals: no apparent distress, average body habitus, oriented x3, no limitations, healthy appearing, alert and well nourished [facility] Common normals: normocephalic and head/scalp atraumatic Eye Common normals: EOMs intact bilaterally and conjunctivae normal Respiratory Common normals: normal respiratory effort, no retractions, no use of accessory muscles and clear to auscultation bilaterally Cardio Common normals: regular rate, regular rhythm, S1 normal heart sound and S2 normal heart sound GI Common normals: Normal to inspection, nondistended, normoactive bowel sounds present, soft to palpation and non-tender Back & Pelvis Common normals: thoracic and lumbar spine normal to inspection and no thoracic nor lumbar tenderness Other: left hip tenderness Extremity Other: tender left hip. left knee and ankle nontender Neuro Common normals: oriented x3, CN's II-XII intact bilaterally, moves all extremities and no focal motor deficits Psych Appearance: grossly normal Course Vital Signs Vital signs: Vital Signs Temperature 98.0 F 12/06/23 06:06 Pulse Rate 80 12/06/23 06:06 Respiratory Rate 16 12/06/23 06:06 Blood Pressure 145/100 H 12/06/23 06:06 Pulse Oximetry 98 12/06/23 06:06 Oxygen Delivery Method Room Air 12/06/23 06:06 Temperature 98.0 F 12/06/23 06:06 Pulse Rate 80 12/06/23 06:06 Respiratory Rate 16 12/06/23 06:06 Blood Pressure 145/100 H 12/06/23 06:06 Pulse Oximetry 98 12/06/23 06:06 Oxygen Delivery Method Room Air 12/06/23 06:06 MDM - Extremity Injury (Lower) MDM Narrative Medical decision making narrative: patient presents complaining of left hip pain. States she fell last PM onto her left hip and continues to have pain. Denies any other injury. Exam positive for left hip tenderness. No deformity. Xrays ordered and report pending at change of shift. Care transferred to Dr Soto Discharge Plan Discharge Chief Complaint: Extremity Injury, Lower Clinical Impression: Injury of hip, left Prescriptions / Home Meds: No Action No Known Home Medications Referrals: Ignacio Das MD [Primary Care Provider] - 1 week
--- NOTE | 2023-12-06 06:30 | XR_ITS ---
The [address] [address] Patient Name: CORI BARRIGA MRN: [id number] date: 1990 Sex: F Assigned Patient Location: ED.MAIN Current Patient Location: ER Accession/Order Number: [id number] Exam Date: 12/06/2023 06:45 Report Date: 12/06/2023 06:58 At the request of: VARGHESE CHUA Procedure: XR hip LT 2V w/ pelvis EXAM: XR hip LT 2V w/ pelvis HISTORY: left hip pain COMPARISON: None. TECHNIQUE: One view of the pelvis and 2 views of the left hip were obtained. FINDINGS: No acute fracture or dislocation is seen. The femoral heads are well-seated in the acetabula. The sacroiliac joints, hip joints, and pubic symphysis are preserved. XR/XR hip LT 2V w/ pelvis IMPRESSION: 1. No acute fracture or dislocation of the pelvis or left hip is seen. If there is concern for an occult injury, cross-sectional imaging is recommended. Electronically authenticated by: Asia CALDWELL Date: 12/06/2023 06:58
--- NOTE | 2023-12-06 07:12 | ED.LOWEXI1 ---
HPI - Extremity Injury (Lower) General Chief Complaint: Extremity Injury, Lower Stated Complaint: LEFT SIDE PAIN Time Seen by Provider: 12/06/23 06:16 Source: patient Mode of arrival: walk-in Limitations: no limitations History of Present Illness HPI Narrative: The was initially seen by Dr. Verdin and signed out to me at change of shift. Please see his full history and physical. Related Data Previous Rx's Medication Instructions Recorded ibuprofen 800 mg tablet 800 mg PO Q8H PRN pain #20 tabs 12/06/23 Allergies Allergy/AdvReac Type Severity Reaction Status Date / Time No Known Drug Allergies Allergy Verified 12/06/23 06:08 [facility] Medical History (Updated 12/06/23 @ 06:47 by Seng Verdin MD) Dyspareunia Menorrhagia ?N92.0 - Excessive and frequent menstruation with regular cycle (ICD-10) Dysmenorrhea ?N94.6 - Dysmenorrhea, unspecified (ICD-10) Pelvic pain ?R10.2 - Pelvic and perineal pain (ICD-10) Anemia ?D64.9 - Anemia, unspecified (ICD-10) Kidney stones ?N20.0 - Calculus of kidney (ICD-10) S/P extracorporeal shock wave therapy (03/2023) ?Z98.890 - Other specified postprocedural states (ICD-10) Bipolar disorder ?F31.9 - Bipolar disorder, unspecified (ICD-10) Ureteral stone ?N20.1 - Calculus of ureter (ICD-10) Kidney stones ?N20.0 - Calculus of kidney (ICD-10) Surgical History (Updated 05/06/23 @ 06:42 by Araceli Recinos) History of wisdom tooth extraction ?K08.409 - Partial loss of teeth, unspecified cause, unspecified class (ICD-10) H/O LEEP ?Z98.890 - Other specified postprocedural states (ICD-10) History of endometrial ablation ?Z98.890 - Other specified postprocedural states (ICD-10) S/P cystoscopy ?Z98.890 - Other specified postprocedural states (ICD-10) S/P ureteral stent placement ?Z96.0 - Presence of urogenital implants (ICD-10) H/O ureteroscopy ?Z98.890 - Other specified postprocedural states (ICD-10) History of cholecystectomy ?Z90.49 - Acquired absence of other specified parts of digestive tract (ICD-10) Family History (Updated 03/30/23 @ 10:56 by Natalee Jules) Other Family history of hypertension Social History (Updated 04/24/23 @ 10:12 by Valencia Chavez NP) Within the past year, how often did you have a drink containing alcohol: monthly or less Smoking status: Never smoker Non-prescribed substance use: denies use 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 Highest level of school completed/degree received: Master's degree Are you now , , , , never or living with a partner: Gender Identity: female Exam Constitutional Vital Signs, click to edit/add: Last Vital Signs Temp 98.0 F 12/06/23 06:06 Pulse 80 12/06/23 06:06 Resp 16 12/06/23 06:06 BP 145/100 H 12/06/23 06:06 Pulse Ox 98 12/06/23 06:06 O2 Del Method Room Air 12/06/23 06:06 Course Vital Signs Vital signs: Vital Signs Temperature 98.0 F 12/06/23 06:06 Pulse Rate 80 12/06/23 06:06 Respiratory Rate 16 12/06/23 06:06 Blood Pressure 145/100 H 12/06/23 06:06 Pulse Oximetry 98 12/06/23 06:06 Oxygen Delivery Method Room Air 12/06/23 06:06 Temperature 98.0 F 12/06/23 06:06 Pulse Rate 80 12/06/23 06:06 Respiratory Rate 16 12/06/23 06:06 Blood Pressure 145/100 H 12/06/23 06:06 Pulse Oximetry 98 12/06/23 06:06 Oxygen Delivery Method Room Air 12/06/23 06:06 MDM - Extremity Injury (Lower) MDM Narrative Medical decision making narrative: X-rays are negative and she was prescribed ibuprofen. Treatment diagnosis and follow-up were discussed with the patient. Differential Diagnosis Differential diagnosis: Likely other (Hip contusion, hip fracture) Imaging Data Left hip x-ray: Radiologist's impression: ITS Impressions Hip/Pelvis X-Ray 12/06/23 06:30 IMPRESSION: 1. No acute fracture or dislocation of the pelvis or left hip is seen. If there is concern for an occult injury, cross-sectional imaging is recommended. Electronically authenticated by: Asia CALDWELL Date: 12/06/2023 06:58 Discharge Plan Discharge Chief Complaint: Extremity Injury, Lower Clinical Impression: Injury of hip, left Patient Disposition: Home, Self-Care Time of Disposition Decision: 07:11 Condition: Good Mode of Transportation: Private Vehicle Prescriptions / Home Meds: New ibuprofen 800 mg tablet 800 mg PO Q8H PRN (Reason: pain) Qty: 20 0RF Instructions: Contusion in Adults (ED) Stand Alone Forms: Portal Instructions Referrals: Ignacio Das MD [Primary Care Provider] - 1 week
[2023-12-06 07:16] VITALS: BP 133/95; PULSE 86; RESP 18; O2SAT 97
== END 2023-12-06 07:18 | disposition home or self-care (01) ==
PROVIDERS: Emergency Provider Emergency Medicine; PCP Family Medicine
DX: S79.912A Unspecified injury of left hip, initial encounter (principal); W01.0XXA Fall on same level from slipping, tripping and stumbling without subsequent striking against object, initial encounter; F31.9 Bipolar disorder, unspecified; Z90.49 Acquired absence of other specified parts of digestive tract; Z98.890 Other specified postprocedural states
CPT/HCPCS: 73502; 99283

== ENCOUNTER 2023-12-14 21:01 | Emergency (ER) | payer OTHER, SELFPAY ==
[2023-12-14] VITALS (12 sets, daily range): BP systolic 133–157; BP diastolic 86–107; PULSE 69–96; RESP 10–30; TEMP 36.9; O2SAT 94–100
--- OUTSIDE RECORDS SUMMARY | 2023-12-14 21:32 | XMS_ITS | CCD ---
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 Name Role Phone Phil Aviles Attending UnavailPhil [...] Unavailable VILLA ., DR CASTELLANO Attending Unavailable VLILA ., DR CASTELLANO Admitting Unavailable HOY ., DR LANE Primary Care Unavailable HOY ., DR LANE Primary Care Unavailable HOY ., DR LANE Consulting Unavailable HOY ., DR LANE Attending Unavailable HOY ., DR LANE Admitting Unavailable BRUSHTON, DR GLEN Alford Consulting Unavailable HOY ., [...] Unavailable NEVILLE ., DR TOLBERT Consulting Unavailable Caesar VILLA Attending Unavailable Caesar VILLA Attending Unavailable Caesar VILLA Attending Unavailable Caesar VILLA Attending Unavailable Medications Current Medications Medication Drug [...] BID, # 30 tab(s), Refills(s) 3, Pharmacy: [facility]/pharmacy #[id number], 168, cm, 03/20/23 10:32:00 EDT, [...] 02-16-2023 Episodic Other aftercare (1 source) Other 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 Caesar Villa. Please note our appointment slots fill quickly. When you fail to cancel or reschedule an appointment the office is unable to fill the appointment slot that was reserved for you. In the future, we ask that you call 24 hours in advance to cancel your appointment. Our current reminder system gives you the opportunity to cancel by responding to our reminder text, phone call or email. You can also call the office to reschedule during normal business hours or use our on-line scheduling portal at your convenience. Our goal is to provide convenient and quality care to all of our patients. We appreciate your consideration regarding any future cancellations. Sincerely, [facility] [address], [place] [address] [facility] Lab Reportson 06-05-2023 Lab Reports [id number] .00CD:[address] [facility] Reminderson 04-24-2023 Reminders - From: Whitney Collier To: PATEL - PA - Results; Sent: 03/20/2023 12:53:35 EDT Show up: 04/17/2023 12:52:00 EDT Subject: Electrolyte panel Due Date/Time: 04/17/2023 12:52:00 EDT Pt should be getting electrolyte panel April 17 after starting HCTZ. Also has hx of low K but recent level was wnl. Please check for these results and once they are in, call the pt with the results. duplicate message [facility] Operative Reporton Operative Report [id number]#1. 00CD:[address] [facility] RAD - MISCon 04-10-2023 RAD - MISC [id number] .00CD:[address] [facility] Lab Reportson 04-06-2023 Lab Reports [id number]#1 .00CD:[address] [facility] Lab Reports [id number] .00CD:[address] [facility] Lab Reportson 03-23-2023 Lab Reports [id number]#1 .00CD:[address] [facility] Lab Reports [id number] .00CD:[address] [facility] Lab Reports [id number] .00CD:[address] [facility] RAD - CT Reporton 03-23-2023 RAD - CT Report [id number] .00CD:[address] [facility] RAD - CT Report [id number] .00CD:[address] [facility] Ambulatory Visit Summaryon 0 03-20-2023 Ambulatory Visit Summary DIANA BARRIGA :1990 Visit Date:03/20/2023 Ambulatory Visit Instructions [...] Butt When: Where: [facility] [address], [place] [address]- Medications What When Instructions Unchanged olanzapine-samidorpha n [...] (more content not included)... [facility] Consent for Procedure/Surger yon 03-20-2023 Consent for Procedure/Surgery [id number] .00CD:[address] [facility] Patient Educationon 03-20-20 23 Patient Education [...] Spinach (cooked), rhubarb, beets, sweet potatoes, and Cypriot chard. ? Peanuts. ? Potato chips, cook islander fries, and baked potatoes with skin on. ? Nuts and nut products. ? Chocolate. ? If you regularly take a diuretic medicine, make sure to eat at least 1 or 2 servings of fruits or vegetables that are high in potassium each day. These include: ? Avocado. ? Banana. ? Brule, prune, carrot, or tomato juice. ? Baked [...] fish oil, or vitamin B6. ? Take bcrj-hxi-iczdywa and prescription medicines only as told by your health care provider. These include supplements. What foods should I limit? Limit your in (more content not included)... Normal [facility] Office/Clinic Noteon 03-20-2023 Urology Office/Clinic [...] Lt kidney pain. Did got to the [place] ER. DX'd & treated for UTI. (NEG [...] L. Ox slightly elevated. Pt presented to [facility] ER on 03/06/23 due to L [...] mg qd. SEs discussed. Rx sent to [facility] Roula. -Electrolyte panel 4 weeks to the day [...] With When Contact Information IDALMIS BORDEN, Caesar Turner, URL [facility] [address], [place] [address]- Additional Instructions: schedule R ESWL Patient Education Urmila, Whitney Collier, personally scribed for Dr. Villa [...] s (more content not included)... Normal [facility] Comment on above: Result Comment: Elec tronically Signed By: Caesar VILLA MD\.br\Date and Time Signed: 03/20/23 11:30 EDT\.br\Electronically Co-Signed By: Whitney Collier\.br\Date and Time Co-Signed: 03/20/23 11:28 EDT CBC AUTO DIFFon 02-16-2023 BASO # 0.1 103/ul Normal 0.0-0.1 [facility] Comment on above: Performed By: #### U KJ 24 #### [facility] [address] [address] [address] Ramses Dumas Basophils/100 WBC (Bld) 0.5 % Normal 0.2-2.0 [facility] Comment on above: Performed By: #### U KJ 24 #### [facility] [address] [address] [address] Ramses Dumas EO # 0.0 103/ul Normal 0.0-0.7 [facility] Comment on above: Performed By: #### U KJ 24 #### [facility] [address] [address] [address] Ramses Dumas Eosinophils/100 WBC (Bld) 0.4 % Critically low 0.9-7.0 [facility] Comment on above: Performed By: #### U KJ 24 #### [facility] [address] [address] [address] Ramses Dumas Erythrocyte distribution width (RBC) [Ratio] 13.7 % Normal 11.0-15.0 [facility] Comment on above: Performed By: #### U KJ 24 #### [facility] [address] [address] [address] Ramses Dumas Hematocrit (Bld) [Volume fraction] 45.1 % Normal 36.0-48.0 [facility] Comment on above: Performed By: #### U KJ 24 #### [facility] [address] [address] [address] Ramses Dumas Hemoglobin (Bld) [Mass/Vol] 14.3 g/dL Normal 12.0-16.0 [facility] Comment on above: Performed By: #### U JK 24 #### [facility] [address] [address] [address] Ramses Dumas IG # 0.02 10e3/ul Normal 0.00-0.03 [facility] Comment on above: Performed By: #### U KJ 24 #### [facility] [address] [address] [address] Ramses Dumas IG % 0.2 % Normal 0.0-0.5 [facility] Comment on above: Performed By: #### U KJ 24 #### [facility] [address] [address] [address] Ramses Dumas LYMPH # 2.5 103/ul Normal 1.2-3.8 [facility] Comment on above: Performed By: #### U KJ 24 #### [facility] [address] [address] [address] Ramses Dumas Lymphocytes/100 WBC (Bld) 26.4 % Normal 20.5-60.0 [facility] Comment on above: Performed By: #### U KJ 24 #### [facility] [address] [address] [address] Ramses Dumas MANUAL DIFF REQ NO Normal [facility] Comment on above: Performed By: #### U KJ 24 #### [facility] [address] [address] [address] Ramses Dumas MCH (RBC) [Entitic mass] 25.6 pg Critically low 26.7-34.0 [facility] Comment on above: Performed By: #### U KJ 24 #### [facility] [address] [address] [address] Ramses Dumas MCHC (RBC) [Mass/Vol] 31.7 g/dL Normal 29.9-35.2 [facility] Comment on above: Performed By: #### U KJ 24 #### [facility] [address] [address] [address] Ramses Dumas MCV (RBC) [Entitic vol] 80.7 fL Critically low 81.0-99.0 [facility] Comment on above: Performed By: #### U KJ 24 #### [facility] [address] [address] [address] Ramses Dumas MONO # 0.7 103/ul Normal 0.3-0.8 [facility] Comment on above: Performed By: #### U KJ 24 #### [facility] [address] [address] [address] Ramses Dumas Monocytes/100 WBC (Bld) 7.6 % Normal 1.7-12.0 [facility] Comment on above: Performed By: #### U KJ 24 #### [facility] [address] [place] [address] Dr. Ramses Dumas NEUT # 6.1 103/ul Normal 1.4-6.5 [facility] Comment on above: Performed By: #### U KJ 24 #### [facility] [address] [place] [address] Dr. Ramses Dumas Neutrophils/100 WBC (Bld) 64.9 % Normal 43.0-75.0 [facility] Comment on above: Performed By: #### U KJ 24 #### [facility] [address] [place] [address] Dr. Ramses Dumas Platelet mean volume (Bld) [Entitic vol] 11.0 fL Normal 9.5-13.5 [facility] Comment on above: Performed By: #### U KJ 24 #### [facility] [address] [place] [address] Dr. Ramses Dumas PLT 270 103/ul Normal 150-450 [facility] Comment on above: Performed By: #### U KJ 24 #### [facility] [address] [place] [address] Dr. Ramses Dumas RBC 5.59 106/ul Critically high 4.20-5.40 [facility] Comment on above: Performed By: #### U KJ 24 #### [facility] [address] [place], [place] [address] Dr. Ramses Dumas WBC 9.4 103/ul Normal 4.0-11.0 [facility] Comment on above: Performed By: #### U KJ 24 #### [facility] [address] [place] [address] ABD/PELV W CONon [...] FARTUN NOVOA Date: 2023-02-16 18:21 Normal [facility] URINE PROFILEon 05-01-202 3 Bilirubin Ql (U) SMALL Abnormal NEGATIVE [facility] Comment on above: Performed By: #### C MP #### [facility] [address] [place] [address] Dr. Ramses Dumas Clarity (U) CLEAR Normal CLEAR [facility] Comment on above: Performed By: #### C MP #### [facility] [address] [place] [address] Dr. Ramses Dumas Color (U) YELLOW Normal YELLOW [facility] Comment on above: Performed By: #### C MP #### [facility] [address] [place] [address] Dr. Ramses DELEON A micrscopic examination will be performed if indicated. Normal [facility] Comment on above: Performed By: #### C MP #### [facility] [address] [place] [address] Dr. Ramses Dumas Glucose Ql (U) Negative Normal NEGATIVE [facility] Comment on above: Performed By: #### C MP #### [facility] [address] [place] [address] Dr. Ramses Dumas Hemoglobin Ql (U) Negative Normal NEGATIVE [facility] Comment on above: Performed By: #### C MP #### [facility] [address] [place] [address] Dr. Ramses Dumas Ketones Ql (U) 40 mg/dl Abnormal NEGATIVE [facility] Comment on above: Performed By: #### C MP #### [facility] [address] [place] [address] Dr. Ramses Dumas LEUKOCYTES SMALL Abnormal NEGATIVE [facility] Comment on above: Performed By: #### C MP #### [facility] [address] [place] [address] Dr. Ramses Dumas Nitrite Ql (U) Negative Normal NEGATIVE [facility] Comment on above: Performed By: #### C MP #### [facility] [address] [place] [address] Dr. Ramses Dumas pH (U) 7.0 [pH] Normal 5-9 [facility] Comment on above: Performed By: #### C MP #### [facility] [address] [place] [address] Dr. Ramses Dumas Protein (U) [Mass/Vol] 30 mg/dL Abnormal NEGAT CHRIS/ TRACE [facility] Comment on above: Performed By: #### C MP #### [facility] [address] [place] [address] Dr. Ramses Duams SPEC GRAVITY 1.020 Normal 1.005-<=1.[address] [place] [address] Comment on above: Performed By: #### C MP #### [facility] [address] [place] [address] Dr. Ramses Dumas UR MICRO IND INDICATED Normal [facility] Comment on above: Performed By: #### C MP #### [facility] [address] [place] [address] Dr. Ramses Dumas Urobilinogen Qn (U) 4 {Lucero'U}/dL Abnormal 0.2 - 1.0 [facility] Comment on above: Performed By: #### C MP #### [facility] [address] [place] [address] Dr. Ramses Dumas LIPASEon 02-16-2023 Lipase [Catalytic activity/Vol] 67.0 U/L Critically low 73.0-393.0 [facility] Comment on above: Performed By: #### U RCX #### [facility] [address] [place] [address] Dr. Ramses Dumas LIVER PROFILEon 02-16-2023 Albumin [Mass/Vol] 4.1 g/dL Normal 3.4-5.0 [facility] Comment on above: Performed By: #### U RCX #### [facility] [address] [place] [address] Dr. Ramses Dumas Albumin/Globulin [Mass ratio] 1.0 {ratio} Normal [facility] Comment on above: Performed By: #### U RCX #### [facility] [address] [place] [address] Dr. Ramses Dumas ALP [Catalytic activity/Vol] 85 U/L Normal 46-116 [facility] Comment on above: Performed By: #### U RCX #### [facility] [address] [address] [address] Ramses Dumas ALT [Catalytic activity/Vol] 61 U/L Critically high 14-59 [facility] Comment on above: Performed By: #### U RCX #### [facility] [address] [address] [address] Ramses Dumas AST [Catalytic activity/Vol] 43 U/L Critically high 15-37 [facility] Comment on above: Performed By: #### U RCX #### [facility] [address] [address] [address] Ramses Dumas BILI, CONJUGATED 0.1 mg/dL Normal 0.0-0.2 [facility] Comment on above: Performed By: #### U RCX #### [facility] [address] [address] [address] Ramses Dumas Bilirubin [Mass/Vol] 0.7 mg/dL Normal 0.2-1.0 [facility] Comment on above: Performed By: #### U RCX #### [facility] [address] [address] [address] Ramses Dumas Globulin (S) [Mass/Vol] 4.2 g/dL Normal [facility] Comment on above: Performed By: #### U RCX #### [facility] [address] [address] [address] Ramses Dumas Protein [Mass/Vol] 8.3 g/dL Critically high 6.4-8.2 [facility] Comment on above: Performed By: #### U RCX #### [facility] [address] [address] [address] Ramses Dumas URon 02-16-2023 , QUAL Negative Normal NEGATIVE [facility] Comment on above: Performed By: #### C MP #### [facility] [address] [place] [address] Dr. Ramses Dumas PROF CHEM 8 (BAS METB)on Anion gap [Moles/Vol] 14.2 mmol/L Normal [facility] Comment on above: Performed By: #### U RCX #### [facility] [address] [address] [address] Ramses Dumas Calcium [Mass/Vol] 9.5 mg/dL Normal 8.5-10.1 [facility] Comment on above: Performed By: #### U RCX #### [facility] [address] [address] [address] Ramses Dumas Chloride [Moles/Vol] 102 mmol/L Normal 98-107 [facility] Comment on above: Performed By: #### U RCX #### [facility] [address] [address] [address] Ramses Dumas CO2 [Moles/Vol] 27.5 mmol/L Normal 21.0-32.0 [facility] Comment on above: Performed By: #### U RCX #### [facility] [address] [place] [address] Dr. Ramses Dumas Creatinine [Mass/Vol] 0.71 mg/dL Normal 0.55-1.02 [facility] Comment on above: Performed By: #### U RCX #### [facility] [address] [address] [address] Ramses Dumas EGFR-AF CONGOLESE >60 Normal >=60 [facility] Comment on above: Performed By: #### U RCX #### [facility] [address] [address] [address] Ramses Dumas EGFR-NON AF CONGOLESE >60 Normal >=60 [facility] Comment on above: Performed By: #### U RCX #### [facility] [address] [address] [address] Ramses Dumas Glucose [Mass/Vol] 90 mg/dL Normal 74-106 [facility] Comment on above: Performed By: #### U RCX #### [facility] [address] [address] [address] Ramses Dumas Potassium [Moles/Vol] 3.7 mmol/L Normal 3.5-5.1 [facility] Comment on above: Performed By: #### U RCX #### [facility] [address] [place] [address] Dr. Ramses Dumas Sodium [Moles/Vol] 140 mmol/L Normal 136-145 [facility] Comment on above: Performed By: #### U RCX #### [facility] [address] [place] [address] Dr. Ramses Dumas Urea nitrogen [Mass/Vol] 6.0 mg/dL Critically low 7.0-18.0 [facility] Comment on above: Performed By: #### U RCX #### [facility] [address] [place] [address] Dr. Ramses Dumas Urea nitrogen/Creatinine [Mass ratio] 8.5 mg/mg Normal [facility] Comment on above: Performed By: #### U RCX #### [facility] [address] [place] [address] Dr. Ramses Dumas URINE MICROSCOPIC ONLYon BACTERIA NONE SEEN Normal NONE SEEN [facility] Comment on above: Performed By: #### U KJ 24 #### [facility] [address] [place] [address] Dr. Ramses Dumas Bacteria identified Cx Nom (U) NOT INDICATED Normal [facility] Comment on above: Performed By: #### U KJ 24 #### [facility] [address] [place] [address] Dr. Ramses Dumas CAST NONE SEEN Normal NONE SEEN [facility] Comment on above: Performed By: #### U KJ 24 #### [facility] [address] [place] [address] Dr. Ramses Dumas Crystals LM Nom (Urine sed) NONE SEEN Normal NONE SEEN [facility] Comment on above: Performed By: #### U KJ 24 #### [facility] [address] [place] [address] Dr. Ramses Dumas Epithelial cells LM Ql (Urine sed) FEW Abnormal NONE SEEN /RARE [facility] Comment on above: Performed By: #### U KJ 24 #### [facility] [address] [place] [address] Dr. Ramses Dumas MUCOUS SMALL Abnormal NONE SEEN [facility] Comment on above: Performed By: #### U KJ 24 #### [facility] [address] [place] [address] Dr. Ramses Dumas RBC NONE SEEN Abnormal 0-2 [facility] Comment on above: Performed By: #### U KJ 24 #### [facility] [address] [place] [address] Dr. Ramses Dumas WBC 0-2 Abnormal NONE SEEN [facility] Comment on above: Performed By: #### U KJ 24 #### [facility] [address] [place] [address] Dr. Ramses Dumas PAP ACOG PANEL 2: 30 to 65on 02-10-2023 . . Normal [facility] Comment on above: Result Comment: Perf ormed at: WB Performed By: #### U RCX #### [facility] [address] [place] [address] Dr. Ramses Dumas Age Gdln ACOG Testing 30-65 Normal [facility] Comment on above: Performed By: #### U RCX #### [facility] [address] [place] [address] Dr. Ramses Dumas DIAGNOSIS: Comment Normal [facility] Comment on above: Result Comment: NEGA TIVE FOR INTRAEPITHELIAL LESION OR MALIGNANCY. REACTIVE CELLULAR CHANGES AND/OR REPAIR ARE PRESENT. Performed at: WB Performed By: #### U RCX #### [facility] [address] [place] [address] Dr. Ramses Dumas Electronically signed by: Comment Normal [facility] Comment on above: Result Comment: Chelsey Boston MD, Pathologist Performed at: WB Performed By: #### U RCX #### [facility] [address] [place] [address] Dr. Ramses Dumas HPV Aptima Negative Normal Negative [facility] Comment on above: Result Comment: This nucleic acid amplification test detects fourteen high-risk HPV types (16,18,31,33,35,39,45,51,52,56,58,59,66,68) without differentiation. Performed at: =G Performed By: #### U RCX #### [facility] [address] [place] [address] Dr. Ramses Dumas HPV Genotype Reflex Comment Normal [facility] Comment on above: Result Comment: Crit eria not met, HPV Genotype not performed. Performed at: WB Performed By: #### U RCX #### [facility] [address] [place] [address] Dr. Ramses Dumas Methodology: Comment Normal [facility] Comment on above: Result Comment: This liquid based ThinPrep(R) pap test was screened with the use of an image guided system. Performed at: WB Performed By: #### U RCX #### [facility] [address] [address] [address] Ramses Dumas Note: Comment Normal [facility] Comment on above: Result Comment: The [...] WB Performed By: #### U RCX #### [facility] [address] [place] [address] Dr. Ramses Dumas Performed by: Comment Normal [facility] Comment on above: Result Comment: Cuca Briceno, Gas Plumbing Inspector (ASCP) Performed at: WB Performed By: #### U RCX #### [facility] [address] [place] [address] Dr. Ramses Dumas Specimen adequacy: Comment Normal [facility] Comment on above: Result Comment: Sati sfactory for evaluation. Endocervical and/or squamous metaplastic cells (endocervical component) are present. Performed at: WB Performed By: #### U RCX #### [facility] [address] [address] [address] Ramses Dumas Lab Reportson 12-29-2022 Lab Reports [id number] .[id number]:127 Normal [facility] RAD - MISCon 12-21-2022 RAD - MISC [id number] .00CD:127 Normal [facility] OXALATE 24HR URINEon 023 Oxalates, Urine 44 mg/L Normal Undefined [facility] Comment on above: Performed By: #### U KJ 24 #### [facility] [address] [address] [address] Ramses Dumas Oxalates, Urine 24hr 44 mg/24 hr Critically high 4-31 [facility] Comment on above: Performed By: #### U KJ 24 #### [facility] [address] [address] [address] Ramses Dumas CITRATE URINE 24HRon 023 Citric Acid, U, 24hr 658 mg/24 hr Normal 320-[address] [facility] Comment on above: Result Comment: This test was developed and its performance characteristics determined by [employer]. It has not been cleared or approved by the Food and Drug Administration. Performed By: #### C ITRATU #### [facility] [address] [address] [address] Ramses Dumas Citric Acid, Urine 658 mg/L Normal Undefined [facility] Comment on above: Performed By: #### C ITRATU #### [facility] [address] [address] [address] Ramses Dumas MAGNESIUM 24HR URINEon 12-17 Magnesium 24hr Urine 119.0 mg/24 hr Normal 12.0-293.0 [facility] Comment on above: Performed By: #### U RCX #### [facility] [address] [address] [address] Ramses Dumas Magnesium UR 11.9 mg/dL Normal Not Estab. [facility] Comment on above: Performed By: #### U RCX #### [facility] [id number] Ramses Dumas PHOSPHORUS 24HR URINEon Phosphorus, Urine 81.4 mg/dL Normal Not Estab. [facility] Comment on above: Performed By: #### B LDCX2 #### [facility] [address] [address] [address] Ramses Dumas Phosphorus, Urine 24hr 814 mg/24 hr Normal 261-1078 [facility] Comment on above: Performed By: #### B LDCX2 #### [facility] [address] [place] [address] Dr. Ramses Dumas PTH INTACTon 12-17-2022 PTH, Intact 46 pg/mL Normal 15-65 [facility] Comment on above: Performed By: #### U RCX #### [facility] [address] [place] [address] Dr. Ramses Dumas URIC ACID 24 HR URINEon Uric Acid, Urine 69.9 mg/dL Normal Not Estab. [facility] Comment on above: Performed By: #### U KJ 24 #### [facility] [address] [place] [address] Dr. Ramses Dumas Uric Acid, Urine 24hr 699.0 mg/24 hr Normal 173.7-902. 1 [facility] Comment on above: Performed By: #### U KJ 24 #### [facility] [address] [place] [address] Dr. Ramses Dumas BUNon 12-16-2022 Urea nitrogen [Mass/Vol] 7.0 mg/dL Normal 7.0-18.0 [facility] Comment on above: Performed By: #### C BC #### [facility] [address] [place] [address] Dr. Ramses Dumas CALCIUMon 12-16-2022 Calcium [Mass/Vol] 8.8 mg/dL Normal 8.5-10.1 [facility] Comment on above: Performed By: #### C BC #### [facility] [address] [place] [address] Dr. Ramses Dumas CALCIUM 24 HR URINEon 2022 CALC, 24 HR UR 295.0 mg/24 hr Normal 100.0-300.0 [facility] Comment on above: Performed By: #### B LDCX2 #### [facility] [address] [place] [address] Dr. Ramses Dumas UR CALCIUM 29.5 mg/dL Critically high 5.1-21.0 [facility] Comment on above: Performed By: #### B LDCX2 #### [facility] [address] [place] [address] Dr. Ramses Dumas CHLORIDEon 12-16-2022 Chloride [Moles/Vol] 105 mmol/L Normal 98-107 [facility] Comment on above: Performed By: #### C BC #### [facility] [address] [place] [address] Dr. Ramses Dumas CO2on 12-16-2022 CO2 [Moles/Vol] 26.4 mmol/L Normal 21.0-32.0 [facility] Comment on above: Performed By: #### C MP #### [facility] [address] [place] [address] Dr. Ramses Dumas CREA 24 HR URINEon 3 CREA, 24 HR UR 2337.30 mg/24 hr Critically high 800.00 -1,800 .00 [facility] Comment on above: Performed By: #### C VDTBH #### [facility] [address] [place] [address] Dr. Ramses Dumas URINE CREAT 233.73 mg/dL Normal 20.00-300.00 [facility] Comment on above: Performed By: #### C VDTBH #### [facility] [address] [place] [address] Dr. Ramses Dumas CREATININEon 12-16-2022 Creatinine [Mass/Vol] 0.70 mg/dL Normal 0.55-1.02 [facility] Comment on above: Performed By: #### C MP #### [facility] [address] [place] [address] Dr. Ramses Dumas EGFR-AF CONGOLESE >60 Normal >=60 [facility] Comment on above: Performed By: #### C MP #### [facility] [address] [place] [address] Dr. Ramses Dumas EGFR-NON AF CONGOLESE >60 Normal >=60 [facility] Comment on above: Performed By: #### C MP #### [facility] [address] [place] [address] Dr. Ramses Dumas NAon 12-16-2022 Sodium [Moles/Vol] 139 mmol/L Normal 136-145 [facility] Comment on above: Performed By: #### C MP #### [facility] [address] [place] [address] Dr. Ramses Dumas POTASSIUMon 12-16-2022 Potassium [Moles/Vol] 4.0 mmol/L Normal 3.5-5.1 [facility] Comment on above: Performed By: #### C MP #### [facility] [address] [place] [address] Dr. Ramses Dumas SODIUM 24 HR URINEon 023 NA, 24 HR UR 193 mmol/24 hr Normal 40-220 [facility] Comment on above: Performed By: #### C VDTBH #### [facility] [address] [place] [address] Dr. Ramses Dumas Sodium (U) [Moles/Vol] 193 mmol/L Critically high 30-90 [facility] Comment on above: Performed By: #### C VDTBH #### [facility] [address] [place] [address] Dr. Ramses Dumas UR TOT VOL 1000 ml/24 HR Normal [facility] Comment on above: Performed By: #### C VDTBH #### [facility] [address] [place] [address] Dr. Ramses Dumas Performed By: #### B LDCX2 #### [facility] [address] [place] [address] Dr. Ramses Dumas URIC ACID SERUMon 12-16-2022 Urate [Mass/Vol] 5.6 mg/dL Normal 2.6-6.0 [facility] Comment on above: Performed By: #### C MP #### [facility] [address] [place] [address] Dr. Ramses Dumas XR KUB 1 VIEWon [...] JENNIFER GATES Date: 2022-12-15 08:26 Normal [facility] CBC AUTO DIFFon 11-07-2022 BASO # 0.0 103/ul Normal 0.0-0.1 [facility] Comment on above: Performed By: #### U RCX #### [facility] [address] [address] [address] Ramses Dumas Basophils/100 WBC (Bld) 0.7 % Normal 0.2-2.0 [facility] Comment on above: Performed By: #### U RCX #### [facility] [address] [address] [address] Ramses Dumas EO # 0.1 103/ul Normal 0.0-0.7 [facility] Comment on above: Performed By: #### U RCX #### [facility] [address] [address] [address] Ramses Dumas Eosinophils/100 WBC (Bld) 1.9 % Normal 0.9-7.0 [facility] Comment on above: Performed By: #### U RCX #### [facility] [address] [address] [address] Ramses Dumas Erythrocyte distribution width (RBC) [Ratio] 13.6 % Normal 11.0-15.0 [facility] Comment on above: Performed By: #### U RCX #### [facility] [address] [address] [address] Ramses Dumas Hematocrit (Bld) [Volume fraction] 37.3 % Normal 36.0-48.0 [facility] Comment on above: Performed By: #### U RCX #### [facility] [address] [address] [address] Ramses Dumas Hemoglobin (Bld) [Mass/Vol] 12.2 g/dL Normal 12.0-16.0 [facility] Comment on above: Performed By: #### U RCX #### [facility] [address] [place] [address] Dr. Ramses Dumas IG # 0.02 10e3/ul Normal 0.00-0.03 [facility] Comment on above: Performed By: #### U RCX #### [facility] [address] [place] [address] Dr. Ramses Dumas IG % 0.3 % Normal 0.0-0.5 [facility] Comment on above: Performed By: #### U RCX #### [facility] [address] [place] [address] Dr. Ramses Dumas LYMPH # 2.3 103/ul Normal 1.2-3.8 [facility] Comment on above: Performed By: #### U RCX #### [facility] [address] [place] [address] Dr. Ramses Dumas Lymphocytes/100 WBC (Bld) 39.6 % Normal 20.5-60.0 [facility] Comment on above: Performed By: #### U RCX #### [facility] [address] [place] [address] Dr. Ramses Dumas MANUAL DIFF REQ NO Normal [facility] Comment on above: Performed By: #### U RCX #### [facility] [address] [place] [address] Dr. Ramses Dumas MCH (RBC) [Entitic mass] 26.4 pg Critically low 26.7-34.0 [facility] Comment on above: Performed By: #### U RCX #### [facility] [address] [place] [address] Dr. Ramses Dumas MCHC (RBC) [Mass/Vol] 32.7 g/dL Normal 29.9-35.2 [facility] Comment on above: Performed By: #### U RCX #### [facility] [address] [place] [address] Dr. Ramses Dumas MCV (RBC) [Entitic vol] 80.7 fL Critically low 81.0-99.0 [facility] Comment on above: Performed By: #### U RCX #### [facility] [address] [place] [address] Dr. Ramses Dumas MONO # 0.5 103/ul Normal 0.3-0.8 [facility] Comment on above: Performed By: #### U RCX #### [facility] [address] [place] [address] Dr. Ramses Dumas Monocytes/100 WBC (Bld) 8.0 % Normal 1.7-12.0 [facility] Comment on above: Performed By: #### U RCX #### [facility] [address] [place] [address] Dr. Ramses Dumas NEUT # 2.9 103/ul Normal 1.4-6.5 [facility] Comment on above: Performed By: #### U RCX #### [facility] [address] [place] [address] Dr. Ramses Dumas Neutrophils/100 WBC (Bld) 49.5 % Normal 43.0-75.0 [facility] Comment on above: Performed By: #### U RCX #### [facility] [address] [place] [address] Dr. Ramses Dumas Platelet mean volume (Bld) [Entitic vol] 9.0 fL Critically low 9.5-13.5 [facility] Comment on above: Performed By: #### U RCX #### [facility] [address] [place] [address] Dr. Ramses Dumas PLT 337 103/ul Normal 150-450 [facility] Comment on above: Performed By: #### U RCX #### [facility] [address] [place] [address] Dr. Ramses Dumas RBC 4.62 106/ul Normal 4.20-5.40 [facility] Comment on above: Performed By: #### U RCX #### [facility] [address] [place] [address] Dr. Ramses Dumas WBC 5.9 103/ul Normal 4.0-11.0 [facility] Comment on above: Performed By: #### U RCX #### [facility] [address] [place] [address] Dr. Ramses Dumas POINT OF CARE GLUCOSEon 10-20 Glucose [Mass/Vol] 115 mg/dL Critically high 74-106 [facility] Comment on above: Performed By: #### C VDTBH #### [facility] [address] [place] [address] Dr. Ramses Dumas PREG QUANT HCGon 11-07-2022 HCG QUANT <1 Normal [facility] Comment on above: Performed By: #### C VDTBH #### [facility] [address] [place] [address] Dr. Ramses Dumas HCG RANGE SEE BELOW Normal [facility] Comment on above: Result Comment: 5-50 0.2-1 WEEK 50-500 1-2 WEEKS 100-5,000 2-3 WEEKS 500-10,000 3-4 WEEKS 1,000-50,000 4-5 WEEKS 10,000-100,000 5-6 WEEKS 15,000-200,000 6-8 WEEKS 10,000-100,000 2-3 MONTHS Performed By: #### C VDTBH #### [facility] [address] [place] [address] Dr. Ramses Dumas US PELVIS AND TRANSVAGon [...] cm right ovarian simple cyst Normal [facility] CBC AUTO DIFFon 11-03-2022 BASO # 0.1 103/ul Normal 0.0-0.1 [facility] Comment on above: Performed By: #### U RCX #### [facility] [address] [address] [address] Ramses Dumas Basophils/100 WBC (Bld) 0.8 % Normal 0.2-2.0 [facility] Comment on above: Performed By: #### U RCX #### [facility] [address] [address] [address] Ramses Dumas EO # 0.1 103/ul Normal 0.0-0.7 [facility] Comment on above: Performed By: #### U RCX #### [facility] [address] [address] [address] Ramses Dumas Eosinophils/100 WBC (Bld) 1.4 % Normal 0.9-7.0 [facility] Comment on above: Performed By: #### U RCX #### [facility] [address] [address] [address] Ramses Dumas Erythrocyte distribution width (RBC) [Ratio] 13.4 % Normal 11.0-15.0 [facility] Comment on above: Performed By: #### U RCX #### [facility] [address] [address] [address] Ramses Dumas Hematocrit (Bld) [Volume fraction] 38.8 % Normal 36.0-48.0 [facility] Comment on above: Performed By: #### U RCX #### [facility] [address] [address] [address] Ramses Dumas Hemoglobin (Bld) [Mass/Vol] 12.7 g/dL Normal 12.0-16.0 [facility] Comment on above: Performed By: #### U RCX #### [facility] [address] [address] [address] Ramses Dumas IG # 0.01 10e3/ul Normal 0.00-0.03 [facility] Comment on above: Performed By: #### U RCX #### [facility] [address] [address] [address] Ramses Dumas IG % 0.1 % Normal 0.0-0.5 [facility] Comment on above: Performed By: #### U RCX #### [facility] [address] [address] [address] Ramses Dumas LYMPH # 1.9 103/ul Normal 1.2-3.8 [facility] Comment on above: Performed By: #### U RCX #### [facility] [address] [address] [address] Ramses Dumas Lymphocytes/100 WBC (Bld) 26.4 % Normal 20.5-60.0 [facility] Comment on above: Performed By: #### U RCX #### [facility] [address] [place] [address] Dr. Ramses Dumas MANUAL DIFF REQ NO Normal [facility] Comment on above: Performed By: #### U RCX #### [facility] [address] [address] [address] Ramses Dumas MCH (RBC) [Entitic mass] 26.3 pg Critically low 26.7-34.0 [facility] Comment on above: Performed By: #### U RCX #### [facility] [address] [address] [address] Ramses Dumas MCHC (RBC) [Mass/Vol] 32.7 g/dL Normal 29.9-35.2 [facility] Comment on above: Performed By: #### U RCX #### [facility] [address] [address] [address] Ramses Dumas MCV (RBC) [Entitic vol] 80.5 fL Critically low 81.0-99.0 [facility] Comment on above: Performed By: #### U RCX #### [facility] [address] [address] [address] Ramses Dumas MONO # 0.6 103/ul Normal 0.3-0.8 [facility] Comment on above: Performed By: #### U RCX #### [facility] [address] [address] [address] Ramses Dumas Monocytes/100 WBC (Bld) 8.2 % Normal 1.7-12.0 [facility] Comment on above: Performed By: #### U RCX #### [facility] [address] [address] [address] Ramses Dumas NEUT # 4.5 103/ul Normal 1.4-6.5 [facility] Comment on above: Performed By: #### U RCX #### [facility] [address] [place] [address] Dr. Ramses Dumas Neutrophils/100 WBC (Bld) 63.1 % Normal 43.0-75.0 [facility] Comment on above: Performed By: #### U RCX #### [facility] [address] [place] [address] Dr. Ramses Dumas Platelet mean volume (Bld) [Entitic vol] 8.9 fL Critically low 9.5-13.5 [facility] Comment on above: Performed By: #### U RCX #### [facility] [address] [place] [address] Dr. Ramses Dumas PLT 340 103/ul Normal 150-450 [facility] Comment on above: Performed By: #### U RCX #### [facility] [address] [place] [address] Dr. Ramses Dumas RBC 4.82 106/ul Normal 4.20-5.40 [facility] Comment on above: Performed By: #### U RCX #### [facility] [address] [place] [address] Dr. Ramses Dumas WBC 7.1 103/ul Normal 4.0-11.0 [facility] Comment on above: Performed By: #### U RCX #### [facility] [address] [place] [address] Dr. Ramses Dumas [facility] SARS-CoV-2 (COVID-19) RNA FRANCESCA+probe Ql (Unsp spec) Not detected Normal NOT DETECTED [facility] Comment on above: Result Comment: This test is not yet approved or cleared by the [place] FDA. When there are no FDA-approved or cleared tests available, and other criteria are met, FDA can make tests available under an emergency access mechanism called an Emergency Use Authorization (EUA). The EUA for this test is supported by the [place] of Health and Human Service's (HHS's) declaration [...] SARS-CoV-2. Performed By: #### U RCX #### [facility] [address] [place] [address] Dr. Ramses Dumas FREE T4on 11-03-2022 Free T4 [Mass/Vol] 0.99 ng/dL Normal 0.76-1.46 [facility] Comment on above: Performed By: #### B LDCX2 #### [facility] [address] [place] [address] Dr. Ramses Dumas GLYCOHEMOGLOBIN A1Con 2022 ADA RECOMMENDATION SEE BELOW Normal [facility] Comment on above: Result Comment: ADA RECOMMENDED LIMIT 4.0 - 6.0 ADA THERAPEUTIC TARGET < 7.0 ACTION SUGGESTED > 7.0 Performed By: #### C VDTBH #### [facility] [address] [place] [address] Dr. Ramses Dumas Glucose [Mass/Vol] 117 mg/dL Normal [facility] Comment on above: Performed By: #### C VDTBH #### [facility] [address] [place] [address] Dr. Ramses Dumas HbA1c (Bld) [Mass fraction] 5.7 % Normal 4.5-6.2 [facility] Comment on above: Performed By: #### C VDTBH #### [facility] [address] [place] [address] Dr. Ramses Dumas PROTIMEon 11-03-2022 INR Coag (PPP) [Relative time] 0.97 {INR} Normal [facility] Comment on above: Performed By: #### U KJ 24 #### [facility] [address] [place] [address] Dr. Ramses Dumas INR GUIDELINES SEE BELOW Normal [facility] Comment on above: Result Comment: TOÑA RED INR: 2.0 - 3.0 CONDITIONS NOT LISTED BELOW 2.5 - 3.5 FOR PROSTHETIC HEART VALVE REPLACEMENT 2.5 - 3.5 RECURRENT THROMBOSIS Performed By: #### U KJ 24 #### [facility] [address] [place] [address] Dr. Ramses Dumas PT Coag (PPP) [Time] 10.3 s Normal 9.0-11.6 [facility] Comment on above: Performed By: #### U KJ 24 #### [facility] [address] [place] [address] Dr. Ramses Dumas PTTon 11-03-2022 aPTT Coag (Bld) [Time] 27.7 s Normal 22.3-36.2 [facility] Comment on above: Performed By: #### U KJ 24 #### [facility] [address] [place] [address] Dr. Rasmes Dumas TSHon 11-03-2022 TSH 0.667 uIU/mL Normal 0.358-3.740 [facility] Comment on above: Performed By: #### C VDTBH #### [facility] [address] [place] [address] Dr. Ramses Dumas PREG HCG QUALon 09-18-2022 , QUAL Negative Normal NEGATIVE [facility] Comment on above: Performed By: #### U KJ 24 #### [facility] [address] [place] [address] Dr. Ramses Dumas Covid-19 PCR (CVDTB)on 08-20 SARS-CoV-2 (COVID-19) RNA FRANCESCA+probe Ql (Unsp spec) Not detected Normal NOT DETECTED [facility] Comment on above: Result Comment: This test is not yet approved or cleared by the [place] FDA. When there are no FDA-approved or cleared tests available, and other criteria are met, FDA can make tests available under an emergency access mechanism called an Emergency Use Authorization (EUA). The EUA for this test is supported by the [place] of Health and Human Service's (HHS's) declaration [...] SARS-CoV-2. Performed By: #### C VDTBH #### [facility] [address] [place] [address] Dr. Ramses Dumas CBC AUTO DIFFon 09-05-2022 BASO # 0.1 103/ul Normal 0.0-0.1 [facility] Comment on above: Performed By: #### B LDCX2 #### [facility] [address] [place] [address] Dr. Ramses Dumas Basophils/100 WBC (Bld) 0.7 % Normal 0.2-2.0 [facility] Comment on above: Performed By: #### B LDCX2 #### [facility] [address] [place] [address] Dr. Ramses Dumas EO # 0.2 103/ul Normal 0.0-0.7 [facility] Comment on above: Performed By: #### B LDCX2 #### [facility] [address] [place] [address] Dr. Ramses Dumas Eosinophils/100 WBC (Bld) 2.2 % Normal 0.9-7.0 [facility] Comment on above: Performed By: #### B LDCX2 #### [facility] [address] [place] [address] Dr. Ramses Dumas Erythrocyte distribution width (RBC) [Ratio] 13.9 % Normal 11.0-15.0 [facility] Comment on above: Performed By: #### B LDCX2 #### [facility] [address] [place] [address] Dr. Ramses Dumas Hematocrit (Bld) [Volume fraction] 38.8 % Normal 36.0-48.0 [facility] Comment on above: Performed By: #### B LDCX2 #### [facility] [address] [place] [address] Dr. Ramses Dumas Hemoglobin (Bld) [Mass/Vol] 12.6 g/dL Normal 12.0-16.0 [facility] Comment on above: Performed By: #### B LDCX2 #### [facility] [address] [place] [address] Dr. Ramses Dumas IG # 0.03 10e3/ul Normal 0.00-0.03 [facility] Comment on above: Performed By: #### B LDCX2 #### [facility] [address] [place] [address] Dr. Ramses Dumas IG % 0.3 % Normal 0.0-0.5 [facility] Comment on above: Performed By: #### B LDCX2 #### [facility] [address] [place] [address] Dr. Ramses Dumas LYMPH # 2.3 103/ul Normal 1.2-3.8 [facility] Comment on above: Performed By: #### B LDCX2 #### [facility] [address] [place] [address] Dr. Ramses Dumas Lymphocytes/100 WBC (Bld) 21.3 % Normal 20.5-60.0 [facility] Comment on above: Performed By: #### B LDCX2 #### [facility] [address] [place] [address] Dr. Ramses Dumas MANUAL DIFF REQ NO Normal [facility] Comment on above: Performed By: #### B LDCX2 #### [facility] [address] [place] [address] Dr. Ramses Dumas MCH (RBC) [Entitic mass] 26.4 pg Critically low 26.7-34.0 [facility] Comment on above: Performed By: #### B LDCX2 #### [facility] [address] [place] [address] Dr. Ramses Dumas MCHC (RBC) [Mass/Vol] 32.5 g/dL Normal 29.9-35.2 [facility] Comment on above: Performed By: #### B LDCX2 #### [facility] [address] [place] [address] Dr. Ramses Dumas MCV (RBC) [Entitic vol] 81.2 fL Normal 81.0-99.0 [facility] Comment on above: Performed By: #### B LDCX2 #### [facility] [address] [place] [address] Dr. Ramses Dumas MONO # 0.8 103/ul Normal 0.3-0.8 [facility] Comment on above: Performed By: #### B LDCX2 #### [facility] [address] [place] [address] Dr. Ramses Dumas Monocytes/100 WBC (Bld) 7.4 % Normal 1.7-12.0 [facility] Comment on above: Performed By: #### B LDCX2 #### [facility] [address] [place] [address] Dr. Ramses Dumas NEUT # 7.3 103/ul Critically high 1.4-6.5 [facility] Comment on above: Performed By: #### B LDCX2 #### [facility] [address] [place] [address] Dr. Ramses Dumas Neutrophils/100 WBC (Bld) 68.1 % Normal 43.0-75.0 [facility] Comment on above: Performed By: #### B LDCX2 #### [facility] [address] [place] [address] Dr. Ramses Dumas Platelet mean volume (Bld) [Entitic vol] 8.8 fL Critically low 9.5-13.5 [facility] Comment on above: Performed By: #### B LDCX2 #### [facility] [address] [place] [address] Dr. Ramses Dumas PLT 323 103/ul Normal 150-450 [facility] Comment on above: Performed By: #### B LDCX2 #### [facility] [address] [place] [address] Dr. Ramses Dumas RBC 4.78 106/ul Normal 4.20-5.40 [facility] Comment on above: Performed By: #### B LDCX2 #### [facility] [address] [place] [address] Dr. Ramses Dumas WBC 10.7 103/ul Normal 4.0-11.0 [facility] Comment on above: Performed By: #### B LDCX2 #### [facility] [address] [place] [address] Dr. Ramses Dumas CULTURE URINEon 09-05-2022 CULTURE URINE Culture Observations : LIGHT GROWTH OF MIXED GENITAL DAIANA. NO POTENTIAL PATHOGENS SEEN. Normal [facility] Comment on above: Performed By: #### U RCX #### [facility] [address] [place] [address] Dr. Ramses Dumas ER URINE PROFILEon 2 Bilirubin Ql (U) Negative Normal NEGATIVE [facility] Comment on above: Performed By: #### B LDCX2 #### [facility] [address] [place] [address] Dr. Ramses Dumas Clarity (U) CLOUDY Abnormal CLEAR [facility] Comment on above: Performed By: #### B LDCX2 #### [facility] [facility] [address] [place] [address] Dr. Ramses Dumas Color (U) YELLOW Normal YELLOW [facility] Comment on above: Performed By: #### B [id number] #### [facility] [address] [place] [address] Dr. Ramses Dumas ERUAHD A micrscopic examination will be performed if indicated. Normal [facility] Comment on above: Performed By: #### B LDCX2 #### [facility] [address] [address] [address] Ramses Dumas Glucose Ql (U) Negative Normal NEGATIVE [facility] Comment on above: Performed By: #### B LDCX2 #### [facility] [address] [place] [address] Dr. Ramses Dumas Hemoglobin Ql (U) LARGE Abnormal NEGATIVE [facility] Comment on above: Performed By: #### B LDCX2 #### [facility] [address] [place] [address] Dr. Ramses Dumas Ketones Ql (U) Negative Normal NEGATIVE [facility] Comment on above: Performed By: #### B LDCX2 #### [facility] [address] [place] [address] Dr. Ramses Dumas LEUKOCYTES SMALL Abnormal NEGATIVE [facility] Comment on above: Performed By: #### B LDCX2 #### [facility] [address] [place] [address] Dr. Ramses Dumas Nitrite Ql (U) Negative Normal NEGATIVE [facility] Comment on above: Performed By: #### B LDCX2 #### [facility] [address] [place] [address] Dr. Ramses Dumas pH (U) 6.0 [pH] Normal 5-9 [facility] Comment on above: Performed By: #### B LDCX2 #### [facility] [address] [place] [address] Dr. Ramses Dumas Protein (U) [Mass/Vol] 100 mg/dL Abnormal NEGAT CHRIS/ TRACE [facility] Comment on above: Performed By: #### B LDCX2 #### [facility] [address] [place] [address] Dr. Ramses Dumas SPEC GRAVITY >=1.030 Abnormal 1.005-<=1.02 5 [facility] Comment on above: Performed By: #### B LDCX2 #### [facility] [address] [place] [address] Dr. Ramses Dumas UR MICRO IND INDICATED Normal [facility] Comment on above: Performed By: #### B LDCX2 #### [facility] [address] [place] [address] Dr. Ramses Dumas Urobilinogen Qn (U) 0.2 {Lucero'U}/dL Normal 0.2 - 1. 0 [facility] Comment on above: Performed By: #### B LDCX2 #### [facility] [address] [place] [address] Dr. Ramses Dumas URon 09-05-2022 , QUAL Negative Normal NEGATIVE [facility] Comment on above: Performed By: #### B LDCX2 #### [facility] [address] [place] [address] Dr. Ramses Dumas PROF CHEM 8 (BAS METB)on Anion gap [Moles/Vol] 11.7 mmol/L Normal [facility] Comment on above: Performed By: #### C MP #### [facility] [address] [place] [address] Dr. Ramses Dumas Calcium [Mass/Vol] 9.1 mg/dL Normal 8.5-10.1 [facility] Comment on above: Performed By: #### C MP #### [facility] [address] [place] [address] Dr. Ramses Dumas Chloride [Moles/Vol] 103 mmol/L Normal 98-107 [facility] Comment on above: Performed By: #### C MP #### [facility] [address] [place] [address] Dr. Ramses Dumas CO2 [Moles/Vol] 25.9 mmol/L Normal 21.0-32.0 [facility] Comment on above: Performed By: #### C MP #### [facility] [address] [place] [address] Dr. Ramses Dumas Creatinine [Mass/Vol] 0.77 mg/dL Normal 0.55-1.02 [facility] Comment on above: Performed By: #### C MP #### [facility] [address] [place] [address] Dr. Ramses Dumas EGFR-AF CONGOLESE >60 Normal >=60 [facility] Comment on above: Performed By: #### C MP #### [facility] [address] [address] [address] Ramses Dumas EGFR-NON AF CONGOLESE >60 Normal >=60 [facility] Comment on above: Performed By: #### C MP #### [facility] [address] [address] [address] Ramses Dumas Glucose [Mass/Vol] 124 mg/dL Critically high 74-106 T [facility] Comment on above: Performed By: #### C MP #### [facility] [address] [address] [address] Ramses Dumas Potassium [Moles/Vol] 3.6 mmol/L Normal 3.5-5.1 [facility] Comment on above: Performed By: #### C MP #### [facility] [address] [address] [address] Ramses Dumas Sodium [Moles/Vol] 137 mmol/L Normal 136-145 [facility] Comment on above: Performed By: #### C MP #### [facility] [address] [address] [address] Ramses Dumas Urea nitrogen [Mass/Vol] 12.0 mg/dL Normal 7.0-18.0 [facility] Comment on above: Performed By: #### C MP #### [facility] [address] [address] [address] Ramses Dumas Urea nitrogen/Creatinine [Mass ratio] 15.6 mg/mg Normal [facility] Comment on above: Performed By: #### C MP #### [facility] [address] [address] [address] Ramses Dumas URINE MICROSCOPIC ONLYon AMORPHOUS CRYSTALS RARE Normal [facility] Comment on above: Performed By: #### B LDCX2 #### [facility] [address] [address] [address] Ramses Dumas BACTERIA TRACE Abnormal NONE SEEN [facility] Comment on above: Performed By: #### B LDCX2 #### [facility] [address] [place] [address] Dr. Ramses Dumas Bacteria identified Cx Nom (U) INDICATED Normal [facility] Comment on above: Performed By: #### B LDCX2 #### [facility] [address] [place] [address] Dr. Ramses Dumas CA OX CRYSTALS RARE Normal [facility] Comment on above: Performed By: #### B LDCX2 #### [facility] [address] [place] [address] Dr. Ramses Dumas CAST NONE SEEN Normal NONE SEEN [facility] Comment on above: Performed By: #### B LDCX2 #### [facility] [address] [place] [address] Dr. Ramses Dumas Crystals LM Nom (Urine sed) SEEN Abnormal NONE SEEN [facility] Comment on above: Performed By: #### B LDCX2 #### [facility] [address] [place] [address] Dr. Ramses Dumas Epithelial cells LM Ql (Urine sed) FEW Abnormal NONE SEEN /RARE [facility] Comment on above: Performed By: #### B LDCX2 #### [facility] [address] [place] [address] Dr. Ramses Dumas MUCOUS TRACE Abnormal NONE SEEN [facility] Comment on above: Performed By: #### B LDCX2 #### [facility] [address] [place] [address] Dr. Ramses Dumas RBC 50-75 Abnormal 0-2 [facility] Comment on above: Performed By: #### B LDCX2 #### [facility] [address] [place] [address] Dr. Ramses Dumas WBC 20-50 Abnormal NONE SEEN [facility] Comment on above: Performed By: #### B LDCX2 #### [facility] [address] [place] [address] Dr. Ramses Dumas YEAST PRESENT Abnormal NONE SEEN [facility] Comment on above: Performed By: #### B LDCX2 #### [facility] [address] [place] [address] Dr. Ramses Dumas US KIDNEYSon 09-05-2022 US [...] by: GLEN GRAFF Date: 2022-09-05 11:[address] [facility] [address] ABD/PELVIS WO CONon 08-29 CT ABD/PELVIS [...] ERICKA IGLESIAS Date: 2022-08-29 01:10 Normal [facility] CULTURE URINEon 08-29-2022 CULTURE URINE Culture Observations : LIGHT GROWTH OF MIXED GENITAL DAIANA. NO POTENTIAL PATHOGENS SEEN. Normal [facility] Comment on above: Performed By: #### U RCX #### [facility] [address] [place] [address] Dr. Ramses Dumas CBC AUTO DIFFon 08-28-2022 BASO # 0.1 103/ul Normal 0.0-0.1 [facility] Comment on above: Performed By: #### U RCX #### [facility] [address] [place] [address] Dr. Ramses Dumas Basophils/100 WBC (Bld) 0.5 % Normal 0.2-2.0 [facility] Comment on above: Performed By: #### U RCX #### [facility] [address] [place] [address] Dr. Ramses Dumas EO # 0.3 103/ul Normal 0.0-0.7 [facility] Comment on above: Performed By: #### U RCX #### [facility] [address] [address] [address] Ramses Dumsa Eosinophils/100 WBC (Bld) 2.3 % Normal 0.9-7.0 [facility] Comment on above: Performed By: #### U RCX #### [facility] [address] [address] [address] Ramses Dumas Erythrocyte distribution width (RBC) [Ratio] 13.7 % Normal 11.0-15.0 [facility] Comment on above: Performed By: #### U RCX #### [facility] [address] [place] [address] Dr. Ramses Dumas Hematocrit (Bld) [Volume fraction] 36.7 % Normal 36.0-48.0 [facility] Comment on above: Performed By: #### U RCX #### [facility] [address] [address] [address] Ramses Dumas Hemoglobin (Bld) [Mass/Vol] 12.3 g/dL Normal 12.0-16.0 [facility] Comment on above: Performed By: #### U RCX #### [facility] [address] [address] [address] Ramses Dumas IG # 0.16 10e3/ul Critically high 0.00-0.03 [facility] Comment on above: Performed By: #### U RCX #### [facility] [address] [address] [address] Ramses Dumas IG % 1.1 % Critically high 0.0-0.5 [facility] Comment on above: Performed By: #### U RCX #### [facility] [address] [address] [address] Ramses Dumas LYMPH # 4.6 103/ul Critically high 1.2-3.8 [facility] Comment on above: Performed By: #### U RCX #### [facility] [address] [address] [address] Ramses Dumas Lymphocytes/100 WBC (Bld) 31.8 % Normal 20.5-60.0 [facility] Comment on above: Performed By: #### U RCX #### [facility] [address] [address] [address] Ramses Dumas MANUAL DIFF REQ NO Normal [facility] Comment on above: Performed By: #### U RCX #### [facility] [address] [address] [address] Ramses Dumas MCH (RBC) [Entitic mass] 26.9 pg Normal 26.7-34.0 [facility] Comment on above: Performed By: #### U RCX #### [facility] [address] [place] [address] Dr. Ramses Dumas MCHC (RBC) [Mass/Vol] 33.5 g/dL Normal 29.9-35.2 [facility] Comment on above: Performed By: #### U RCX #### [facility] [address] [address] [address] Ramses Dumas MCV (RBC) [Entitic vol] 80.3 fL Critically low 81.0-99.0 [facility] Comment on above: Performed By: #### U RCX #### [facility] [address] [place] [address] Dr. Ramses Dumas MONO # 1.0 103/ul Critically high 0.3-0.8 [facility] Comment on above: Performed By: #### U RCX #### [facility] [address] [place] [address] Dr. Ramses Dumas Monocytes/100 WBC (Bld) 7.0 % Normal 1.7-12.0 [facility] Comment on above: Performed By: #### U RCX #### [facility] [address] [place] [address] Dr. Ramses Dumas NEUT # 8.2 103/ul Critically high 1.4-6.5 [facility] Comment on above: Performed By: #### U RCX #### [facility] [address] [place] [address] Dr. Ramses Dumas Neutrophils/100 WBC (Bld) 57.3 % Normal 43.0-75.0 [facility] Comment on above: Performed By: #### U RCX #### [facility] [address] [place] [address] Dr. Ramses Dumas Platelet mean volume (Bld) [Entitic vol] 8.6 fL Critically low 9.5-13.5 [facility] Comment on above: Performed By: #### U RCX #### [facility] [address] [place] [address] Dr. Ramses Dumas PLT 395 103/ul Normal 150-450 [facility] Comment on above: Performed By: #### U RCX #### [facility] [address] [place] [address] Dr. Ramses Dumas RBC 4.57 106/ul Normal 4.20-5.40 [facility] Comment on above: Performed By: #### U RCX #### [facility] [address] [address] [address] Ramses Dumas WBC 14.3 103/ul Critically high 4.0-11.0 [facility] Comment on above: Performed By: #### U RCX #### [facility] [address] [place] [address] Dr. Ramses Dumas ER URINE PROFILEon 2 Bilirubin Ql (U) Negative Normal NEGATIVE [facility] Comment on above: Performed By: #### U KJ 24 #### [facility] [address] [place] [address] Dr. Ramses Dumas Clarity (U) CLEAR Normal CLEAR [facility] Comment on above: Performed By: #### U KJ 24 #### [facility] [address] [place] [address] Dr. Ramses Dumas Color (U) LT. YELLOW Normal YELLOW [facility] Comment on above: Performed By: #### U KJ 24 #### [facility] [address] [place] [address] Dr. Ramses VALLECILLOWalter A micrscopic examination will be performed if indicated. Normal [facility] Comment on above: Performed By: #### U KJ 24 #### [facility] [address] [place] [address] Dr. Ramses Dumas Glucose Ql (U) Negative Normal NEGATIVE [facility] Comment on above: Performed By: #### U KJ 24 #### [facility] [address] [address] [address] Ramses Dumas Hemoglobin Ql (U) LARGE Abnormal NEGATIVE [facility] Comment on above: Performed By: #### U KJ 24 #### [facility] [address] [place] [address] Dr. Ramses Dumas Ketones Ql (U) Negative Normal NEGATIVE [facility] Comment on above: Performed By: #### U KJ 24 #### [facility] [address] [place] [address] Dr. Ramses Dumas LEUKOCYTES MODERATE Abnormal NEGATIVE [facility] Comment on above: Performed By: #### U KJ 24 #### [facility] [address] [place] [address] Dr. Ramses Dumas Nitrite Ql (U) Negative Normal NEGATIVE [facility] Comment on above: Performed By: #### U KJ 24 #### [facility] [address] [place] [address] Dr. Ramses Dumas pH (U) 6.5 [pH] Normal 5-9 [facility] Comment on above: Performed By: #### U KJ 24 #### [facility] [address] [place] [address] Dr. Ramses Dumas Protein (U) [Mass/Vol] 100 mg/dL Abnormal NEGAT CHRIS/ TRACE [facility] Comment on above: Performed By: #### U KJ 24 #### [facility] [address] [place] [address] Dr. Ramses Dumas SPEC GRAVITY 1.020 Normal 1.005-<=1.02 5 [facility] Comment on above: Performed By: #### U KJ 24 #### [facility] [address] [place] [address] Dr. Ramses Dumas UR MICRO IND INDICATED Normal [facility] Comment on above: Performed By: #### U KJ 24 #### [facility] [address] [place] [address] Dr. Ramses Dumas Urobilinogen Qn (U) 0.2 {Lucero'U}/dL Normal 0.2 - 1. 0 [facility] Comment on above: Performed By: #### U KJ 24 #### [facility] [address] [place] [address] Dr. Ramses Dumas PROF 14(COMP METB)on 022 Albumin [Mass/Vol] 3.3 g/dL Critically low 3.4-5.0 [facility] Comment on above: Performed By: #### C MP #### [facility] [address] [place] [address] Dr. Ramses Dumas Albumin/Globulin [Mass ratio] 0.8 {ratio} Normal [facility] Comment on above: Performed By: #### C MP #### [facility] [address] [address] [address] Ramses Dumas ALP [Catalytic activity/Vol] 108 U/L Normal 46-116 [facility] Comment on above: Performed By: #### C MP #### [facility] [address] [address] [address] Ramses Dumas ALT [Catalytic activity/Vol] 103 U/L Critically high 14-59 [facility] Comment on above: Performed By: #### C MP #### [facility] [address] [address] [address] Ramses Dumas Anion gap [Moles/Vol] 6.6 mmol/L Normal [facility] Comment on above: Performed By: #### C MP #### [facility] [address] [place] [address] Dr. Ramses Dumas AST [Catalytic activity/Vol] 21 U/L Normal 15-37 [facility] Comment on above: Performed By: #### C MP #### [facility] [address] [place] [address] Dr. Ramses Dumas Bilirubin [Mass/Vol] 0.2 mg/dL Normal 0.2-1.0 [facility] Comment on above: Performed By: #### C MP #### [facility] [address] [place] [address] Dr. Ramses Dumas Calcium [Mass/Vol] 9.2 mg/dL Normal 8.5-10.1 [facility] Comment on above: Performed By: #### C MP #### [facility] [address] [place] [address] Dr. Ramses Dumas Chloride [Moles/Vol] 102 mmol/L Normal 98-107 [facility] Comment on above: Performed By: #### C MP #### [facility] [address] [address] [address] Ramses Dumas CO2 [Moles/Vol] 28.8 mmol/L Normal 21.0-32.0 [facility] Comment on above: Performed By: #### C MP #### [facility] [address] [place] [address] Dr. Ramses Dumas Creatinine [Mass/Vol] 0.92 mg/dL Normal 0.55-1.02 [facility] Comment on above: Performed By: #### C MP #### [facility] [address] [place] [address] Dr. Ramses Dumas EGFR-AF CONGOLESE >60 Normal >=60 [facility] Comment on above: Performed By: #### C MP #### [facility] [address] [address] [address] Ramses Dumas EGFR-NON AF CONGOLESE >60 Normal >=60 [facility] Comment on above: Performed By: #### C MP #### [facility] [address] [place] [address] Dr. Ramses Dumas Globulin (S) [Mass/Vol] 4.1 g/dL Normal [facility] Comment on above: Performed By: #### C MP #### [facility] [address] [place] [address] Dr. Ramses Dumas Glucose [Mass/Vol] 114 mg/dL Critically high 74-106 T [facility] Comment on above: Performed By: #### C MP #### [facility] [address] [place] [address] Dr. Ramses Dumas Potassium [Moles/Vol] 3.4 mmol/L Critically low 3.5-5.1 [facility] Comment on above: Performed By: #### C MP #### [facility] [address] [place] [address] Dr. Ramses Dumas Protein [Mass/Vol] 7.4 g/dL Normal 6.4-8.2 [facility] Comment on above: Performed By: #### C MP #### [facility] [address] [address] [address] Ramses Dumas Sodium [Moles/Vol] 134 mmol/L Critically low 136-145 [facility] Comment on above: Performed By: #### C MP #### [facility] [address] [place] [address] Dr. Ramses Dumas Urea nitrogen [Mass/Vol] 11.0 mg/dL Normal 7.0-18.0 [facility] Comment on above: Performed By: #### C MP #### [facility] [address] [place] [address] Dr. Ramses Dumas Urea nitrogen/Creatinine [Mass ratio] 12.0 mg/mg Normal [facility] Comment on above: Performed By: #### C MP #### [facility] [address] [place] [address] Dr. Ramses Dumas URINE MICROSCOPIC ONLYon BACTERIA MODERATE Abnormal NONE SEEN [facility] Comment on above: Performed By: #### U KJ 24 #### [facility] [address] [place] [address] Dr. Ramses Dumas Bacteria identified Cx Nom (U) INDICATED Normal [facility] Comment on above: Performed By: #### U KJ 24 #### [facility] [address] [place] [address] Dr. Ramses Dumas CAST NONE SEEN Normal NONE SEEN [facility] Comment on above: Performed By: #### U KJ 24 #### [facility] [address] [place] [address] Dr. Ramses Dumas Crystals LM Nom (Urine sed) NONE SEEN Normal NONE SEEN [facility] Comment on above: Performed By: #### U KJ 24 #### [facility] [address] [place] [address] Dr. Ramses Dumas Epithelial cells LM Ql (Urine sed) RARE Normal NONE SEEN /RARE [facility] Comment on above: Performed By: #### U KJ 24 #### [facility] [address] [place] [address] Dr. Ramses Dumas MUCOUS NONE SEEN Normal NONE SEEN [facility] Comment on above: Performed By: #### U KJ 24 #### [facility] [address] [place] [address] Dr. Ramses Dumas RBC 20-50 Abnormal 0-2 [facility] Comment on above: Performed By: #### U KJ 24 #### [facility] [address] [place] [address] Dr. Ramses Dumas WBC 5-10 Abnormal NONE SEEN [facility] Comment on above: Performed By: #### U KJ 24 #### [facility] [address] [place] [address] Dr. Ramses Dumas CULTURE BLOODon 08-25-2022 Microscopic [...] S F Tetracycline >=16 R F Normal [facility] Comment on above: Performed By: #### B LDCX2 #### [facility] [address] [place] [address] Dr. Ramses Dumas Microscopic examination of blood, [...] S F Tetracycline >=16 R F Normal [facility] Comment on above: Performed By: #### C BC #### [facility] [address] [place] [address] Dr. Ramses Dumas CBC AUTO DIFFon 08-24-2022 BASO # 0.0 103/ul Normal 0.0-0.1 [facility] Comment on above: Performed By: #### C BC #### [facility] [address] [address] [address] Ramses Dumas Basophils/100 WBC (Bld) 0.1 % Critically low 0.2-2.0 [facility] Comment on above: Performed By: #### C BC #### [facility] [address] [address] [address] Ramses Dumas EO # 0.0 103/ul Normal 0.0-0.7 [facility] Comment on above: Performed By: #### C BC #### [facility] [address] [place] [address] Dr. Ramses Dumas Eosinophils/100 WBC (Bld) 0.0 % Critically low 0.9-7.0 [facility] Comment on above: Performed By: #### C BC #### [facility] [address] [place] [address] Dr. Ramses Dumas Erythrocyte distribution width (RBC) [Ratio] 13.5 % Normal 11.0-15.0 [facility] Comment on above: Performed By: #### C BC #### [facility] [address] [place] [address] Dr. Ramses Dumas Hematocrit (Bld) [Volume fraction] 33.0 % Critically low 36.0-48.0 [facility] Comment on above: Performed By: #### C BC #### [facility] [address] [place] [address] Dr. Ramses Dumas Hemoglobin (Bld) [Mass/Vol] 10.7 g/dL Critically low 12.0-16.0 [facility] Comment on above: Performed By: #### C BC #### [facility] [address] [place] [address] Dr. Ramses Dumas IG # 0.04 10e3/ul Critically high 0.00-0.03 [facility] Comment on above: Performed By: #### C BC #### [facility] [address] [place] [address] Dr. Ramses Dumas IG % 0.4 % Normal 0.0-0.5 [facility] Comment on above: Performed By: #### C BC #### [facility] [address] [address] [address] Ramses Dumas LYMPH # 0.8 103/ul Critically low 1.2-3.8 [facility] Comment on above: Performed By: #### C BC #### [facility] [address] [place] [address] Dr. Ramses Dumas Lymphocytes/100 WBC (Bld) 7.9 % Critically low 20.5-60.0 [facility] Comment on above: Performed By: #### C BC #### [facility] [address] [address] [address] Ramses Dumas MANUAL DIFF REQ NO Normal [facility] Comment on above: Performed By: #### C BC #### [facility] [address] [address] [address] Ramses Dumas MCH (RBC) [Entitic mass] 26.5 pg Critically low 26.7-34.0 [facility] Comment on above: Performed By: #### C BC #### [facility] [address] [place] [address] Dr. Ramses Dumas MCHC (RBC) [Mass/Vol] 32.4 g/dL Normal 29.9-35.2 [facility] Comment on above: Performed By: #### C BC #### [facility] [address] [place] [address] Dr. Ramses Dumas MCV (RBC) [Entitic vol] 81.7 fL Normal 81.0-99.0 The [facility] Comment on above: Performed By: #### C BC #### [facility] [address] [place] [address] Dr. Ramses Dumas MONO # 0.6 103/ul Normal 0.3-0.8 [facility] Comment on above: Performed By: #### C BC #### [facility] [address] [place] [address] Dr. Ramses Dumas Monocytes/100 WBC (Bld) 6.3 % Normal 1.7-12.0 [facility] Comment on above: Performed By: #### C BC #### [facility] [address] [place], [place] [id number] Dr. Ramses Dumas NEUT # 8.6 103/ul Critically high 1.4-6.5 [facility] Comment on above: Performed By: #### C BC #### [facility] [address] [address] [address] Ramses Dumas Neutrophils/100 WBC (Bld) 85.3 % Critically high 43.0-75.0 [facility] Comment on above: Performed By: #### C BC #### [facility] [address] [address] [address] Ramses Dumas Platelet mean volume (Bld) [Entitic vol] 9.1 fL Critically low 9.5-13.5 [facility] Comment on above: Performed By: #### C BC #### [facility] [address] [place] [address] Dr. Ramses Dumas PLT 248 103/ul Normal 150-450 [facility] Comment on above: Performed By: #### C BC #### [facility] [address] [place] [address] Dr. Ramses Dumas RBC 4.04 106/ul Critically low 4.20-5.40 [facility] Comment on above: Performed By: #### C BC #### [facility] [address] [address] [address] Ramses Dumas WBC 10.1 103/ul Normal 4.0-11.0 [facility] Comment on above: Performed By: #### C BC #### [facility] [address] [place] [address] Dr. Ramses Dumas CULTURE URINEon 08-24-2022 CULTURE [...] S F Tetracycline >=16 R F Normal [facility] Comment on above: Performed By: #### U RCX #### [facility] [address] [place] [address] Dr. Ramses Dumas PROF 14(COMP METB)on 022 Albumin [Mass/Vol] 2.4 g/dL Critically low 3.4-5.0 Th e [facility] Comment on above: Performed By: #### C VDTBH #### [facility] [address] [place] [address] Dr. Ramses Dumas Albumin/Globulin [Mass ratio] 0.7 {ratio} Normal [facility] Comment on above: Performed By: #### C VDTBH #### [facility] [address] [place] [address] Dr. Ramses Dumas ALP [Catalytic activity/Vol] 95 U/L Normal 46-116 [facility] Comment on above: Performed By: #### C VDTBH #### [facility] [address] [place] [address] Dr. Ramses Dumas ALT [Catalytic activity/Vol] 327 U/L Critically high 14-59 [facility] Comment on above: Performed By: #### C VDTBH #### [facility] [address] [place] [address] Dr. Ramses Dumas Anion gap [Moles/Vol] 8.7 mmol/L Normal [facility] Comment on above: Performed By: #### C VDTBH #### [facility] [address] [place] [address] Dr. Ramses Dumas AST [Catalytic activity/Vol] 165 U/L Critically high 15-37 [facility] Comment on above: Performed By: #### C VDTBH #### [facility] [address] [place] [address] Dr. Ramses Dumas Bilirubin [Mass/Vol] 0.4 mg/dL Normal 0.2-1.0 [facility] Comment on above: Performed By: #### C VDTBH #### [facility] [address] [place] [address] Dr. Ramses Dumas Calcium [Mass/Vol] 8.0 mg/dL Critically low 8.5-10.[address] [facility] Comment on above: Performed By: #### C VDTBH #### [facility] [address] [place] [address] Dr. Ramses Dumas Chloride [Moles/Vol] 108 mmol/L Critically high 98-107 [facility] Comment on above: Performed By: #### C VDTBH #### [facility] [address] [place] [address] Dr. Ramses Dumas CO2 [Moles/Vol] 25.3 mmol/L Normal 21.0-32.0 [facility] Comment on above: Performed By: #### C VDTBH #### [facility] [address] [place] [address] Dr. Ramses Dumas Creatinine [Mass/Vol] 0.70 mg/dL Normal 0.55-1.02 [facility] Comment on above: Performed By: #### C VDTBH #### [facility] [address] [place] [address] Dr. Ramses Dumas EGFR-AF CONGOLESE >60 Normal >=60 [facility] Comment on above: Performed By: #### C VDTBH #### [facility] [address] [place] [address] Dr. Ramses Dumas EGFR-NON AF CONGOLESE >60 Normal >=60 [facility] Comment on above: Performed By: #### C VDTBH #### [facility] [address] [place] [address] Dr. Ramses Dumas Globulin (S) [Mass/Vol] 3.6 g/dL Normal [facility] Comment on above: Performed By: #### C VDTBH #### [facility] [address] [place] [address] Dr. Ramses Dumas Glucose [Mass/Vol] 160 mg/dL Critically high 74-106 T [facility] Comment on above: Performed By: #### C VDTBH #### [facility] [address] [place] [address] Dr. Ramses Dumas Potassium [Moles/Vol] 4.0 mmol/L Normal 3.5-5.1 [facility] Comment on above: Performed By: #### C VDTBH #### [facility] [address] [place] [address] Dr. Ramses Dumas Protein [Mass/Vol] 6.0 g/dL Critically low 6.4-8.2 Th e [facility] Comment on above: Performed By: #### C VDTBH #### [facility] [address] [place] [address] Dr. Ramses Dumas Sodium [Moles/Vol] 138 mmol/L Normal 136-145 [facility] Comment on above: Performed By: #### C VDTBH #### [facility] [address] [place] [address] Dr. Ramses Dumas Urea nitrogen [Mass/Vol] 6.0 mg/dL Critically low 7.0-18.0 [facility] Comment on above: Performed By: #### C VDTBH #### [facility] [address] [place] [address] Dr. Ramses Dumas Urea nitrogen/Creatinine [Mass ratio] 8.6 mg/mg Normal [facility] Comment on above: Performed By: #### C VDTBH #### [facility] [address] [place] [address] Dr. Ramses Dumas CBC AUTO DIFFon 08-23-2022 BASO # 0.0 103/ul Normal 0.0-0.1 [facility] Comment on above: Performed By: #### U RCX #### [facility] [address] [place] [address] Dr. Ramses Dmuas Basophils/100 WBC (Bld) 0.2 % Normal 0.2-2.0 [facility] Comment on above: Performed By: #### U RCX #### [facility] [address] [place] [address] Dr. Ramses Dumas EO # 0.0 103/ul Normal 0.0-0.7 [facility] Comment on above: Performed By: #### U RCX #### [facility] [address] [place] [address] Dr. Ramses Dumas Eosinophils/100 WBC (Bld) 0.1 % Critically low 0.9-7.0 [facility] Comment on above: Performed By: #### U RCX #### [facility] [address] [place] [address] Dr. Ramses Dumas Erythrocyte distribution width (RBC) [Ratio] 13.4 % Normal 11.0-15.0 [facility] Comment on above: Performed By: #### U RCX #### [facility] [address] [place] [address] Dr. Ramses Dumas Hematocrit (Bld) [Volume fraction] 34.1 % Critically low 36.0-48.0 [facility] Comment on above: Performed By: #### U RCX #### [facility] [address] [place] [address] Dr. Ramses Dumas Hemoglobin (Bld) [Mass/Vol] 10.9 g/dL Critically low 12.0-16.0 [facility] Comment on above: Performed By: #### U RCX #### [facility] [address] [place] [address] Dr. Ramses Dumas IG # 0.02 10e3/ul Normal 0.00-0.03 [facility] Comment on above: Performed By: #### U RCX #### [facility] [address] [place] [address] Dr. Ramses Dumas IG % 0.2 % Normal 0.0-0.5 [facility] Comment on above: Performed By: #### U RCX #### [facility] [address] [place] [address] Dr. Ramses Dumas LYMPH # 0.7 103/ul Critically low 1.2-3.8 [facility] Comment on above: Performed By: #### U RCX #### [facility] [address] [place] [address] Dr. Ramses Dumas Lymphocytes/100 WBC (Bld) 6.9 % Critically low 20.5-60.0 [facility] Comment on above: Performed By: #### U RCX #### [facility] [address] [address] [address] Ramses Dumas MANUAL DIFF REQ NO Normal [facility] Comment on above: Performed By: #### U RCX #### [facility] [address] [place] [address] Dr. Ramses Dumas MCH (RBC) [Entitic mass] 26.1 pg Critically low 26.7-34.0 [facility] Comment on above: Performed By: #### U RCX #### [facility] [address] [place] [address] Dr. Ramses Dumas MCHC (RBC) [Mass/Vol] 32.0 g/dL Normal 29.9-35.2 [facility] Comment on above: Performed By: #### U RCX #### [facility] [address] [place] [address] Dr. Ramses Dumas MCV (RBC) [Entitic vol] 81.8 fL Normal 81.0-99.0 [facility] Comment on above: Performed By: #### U RCX #### [facility] [address] [place] [address] Dr. Ramses Dumas MONO # 0.6 103/ul Normal 0.3-0.8 [facility] Comment on above: Performed By: #### U RCX #### [facility] [address] [place] [address] Dr. Ramses Dumas Monocytes/100 WBC (Bld) 5.9 % Normal 1.7-12.0 [facility] Comment on above: Performed By: #### U RCX #### [facility] [address] [place] [address] Dr. Ramses Dumas NEUT # 8.2 103/ul Critically high 1.4-6.5 [facility] Comment on above: Performed By: #### U RCX #### [facility] [address] [place] [address] Dr. Ramses Dumas Neutrophils/100 WBC (Bld) 86.7 % Critically high 43.0-75.0 [facility] Comment on above: Performed By: #### U RCX #### [facility] [address] [address] [address] Ramses Dumas Platelet mean volume (Bld) [Entitic vol] 9.4 fL Critically low 9.5-13.5 [facility] Comment on above: Performed By: #### U RCX #### [facility] [address] [address] [address] Ramses Dumas PLT 235 103/ul Normal 150-450 [facility] Comment on above: Performed By: #### U RCX #### [facility] [address] [address] [address] Ramses Dumas RBC 4.17 106/ul Critically low 4.20-5.40 [facility] Comment on above: Performed By: #### U RCX #### [facility] [address] [place] [address] Dr. Ramses Dumas WBC 9.5 103/ul Normal 4.0-11.0 [facility] Comment on above: Performed By: #### U RCX #### [facility] [address] [place] [address] Dr. Ramses Dumas PROF 14(COMP METB)on 022 Albumin [Mass/Vol] 2.6 g/dL Critically low 3.4-5.0 [facility] Comment on above: Performed By: #### U KJ 24 #### [facility] [address] [place] [address] Dr. Ramses Dumas Albumin/Globulin [Mass ratio] 0.8 {ratio} Normal [facility] Comment on above: Performed By: #### U KJ 24 #### [facility] [address] [place] [address] Dr. Ramses Dumas ALP [Catalytic activity/Vol] 82 U/L Normal 46-116 [facility] Comment on above: Performed By: #### U JK 24 #### [facility] [address] [address] [address] Ramses Dumas ALT [Catalytic activity/Vol] 257 U/L Critically high 14-59 [facility] Comment on above: Performed By: #### U KJ 24 #### [facility] [address] [address] [address] Ramses Dumas Anion gap [Moles/Vol] 10.3 mmol/L Normal [facility] Comment on above: Performed By: #### U KJ 24 #### [facility] [address] [address] [address] Ramses Dumas AST [Catalytic activity/Vol] 196 U/L Critically high 15-37 [facility] Comment on above: Performed By: #### U KJ 24 #### [facility] [address] [address] [address] Ramses Dumas Bilirubin [Mass/Vol] 0.5 mg/dL Normal 0.2-1.0 [facility] Comment on above: Performed By: #### U KJ 24 #### [facility] [address] [address] [address] Ramses Dumas Calcium [Mass/Vol] 7.8 mg/dL Critically low 8.5-10.1 [facility] Comment on above: Performed By: #### U KJ 24 #### [facility] [address] [address] [address] Ramses Dumas Chloride [Moles/Vol] 104 mmol/L Normal 98-107 [facility] Comment on above: Performed By: #### U KJ 24 #### [facility] [address] [address] [address] Ramses Dumas CO2 [Moles/Vol] 24.4 mmol/L Normal 21.0-32.0 [facility] Comment on above: Performed By: #### U KJ 24 #### [facility] [address] [address] [address] Ramses Dumas Creatinine [Mass/Vol] 1.09 mg/dL Critically high 0.55-1.02 [facility] Comment on above: Performed By: #### U KJ 24 #### [facility] [address] [address] [address] Ramses Dumas EGFR-AF CONGOLESE >60 Normal >=60 [facility] Comment on above: Performed By: #### U KJ 24 #### [facility] [address] [address] [address] Ramses Dumas EGFR-NON AF CONGOLESE 59 mL/min/1.73m2 Critically low >=60 [facility] Comment on above: Performed By: #### U KJ 24 #### [facility] [address] [address] [address] Ramses Dumas Globulin (S) [Mass/Vol] 3.3 g/dL Normal [facility] Comment on above: Performed By: #### U KJ 24 #### [facility] [address] [address] [address] Ramses Dumas Glucose [Mass/Vol] 143 mg/dL Critically high 74-106 T [facility] Comment on above: Performed By: #### U KJ 24 #### [facility] [address] [address] [address] Ramses Dumas Potassium [Moles/Vol] 3.7 mmol/L Normal 3.5-5.1 [facility] Comment on above: Performed By: #### U KJ 24 #### [facility] [address] [address] [address] Ramses Dumas Protein [Mass/Vol] 5.9 g/dL Critically low 6.4-8.[address] [facility] Comment on above: Performed By: #### U KJ 24 #### [facility] [address] [address] [address] Ramses Dumas Sodium [Moles/Vol] 135 mmol/L Critically low 136-[address] [facility] Comment on above: Performed By: #### U KJ 24 #### [facility] [address] [address] [address] Ramses Dumas Urea nitrogen [Mass/Vol] 10.0 mg/dL Normal 7.0-18.0 [facility] Comment on above: Performed By: #### U KJ 24 #### [facility] [address] [address] [address] Ramses Dumas Urea nitrogen/Creatinine [Mass ratio] 9.2 mg/mg Normal [facility] Comment on above: Performed By: #### U KJ 24 #### [facility] [address] [address] [address] Ramses Dumas BLOOD CULTURE ID PANELon A. baumannii Not detected Normal NOT DETECTED [facility] Comment on above: Performed By: #### C VDTBH #### [facility] [address] [address] [address] Ramses Dumas Bacteriodes fragilis Not detected Normal NOT DETECTED [facility] Comment on above: Performed By: #### C VDTBH #### [facility] [address] [address] [address] Ramses SHEPPARDD CONTROLS PASSED Normal [facility] Comment on above: Performed By: #### C VDTBH #### [facility] [address] [address] [address] Ramses SHEPPARDDBTHD BLOOD CULTURE BOTTLE INFORMATION Normal [facility] Comment on above: Performed By: #### C VDTBH #### [facility] [address] [place] [address] Dr. Ramses SHEPPARDDHD1 ANTIMICROBIAL RESISTANCE GENES [facility] Comment on above: Performed By: #### C VDTBH #### [facility] [address] [address] [address] Ramses SHEPPARDDHD2 SEE BELOW [facility] Comment on above: Result Comment: Note : Antimicrobial resitance can occur via multiple mechanisms. A Not Detected result for the [employer] antomicrobial resistance gene assays does not indicate antimicrobial susceptibility. Subculturing is required for species identification and susceptibility testing of isolates. Performed By: #### C VDTBH #### [facility] [address] [place] [address] Dr. Ramses SHEPPARDDHD3 Positive [facility] Comment on above: Performed By: #### C VDTBH #### [facility] [address] [place] [address] Dr. Ramses SHEPPARDDHD4 Negative Normal [facility] Comment on above: Performed By: #### C VDTBH #### [facility] [address] [address] [address] Ramses SHEPPARDDHD5 YEAST Normal [facility] Comment on above: Performed By: #### C VDTBH #### [facility] [address] [address] [address] Ramses Garcia Set: Set 1 Normal [facility] Comment on above: Performed By: #### C VDTBH #### [facility] [address] [place] [address] Dr. Ramses Dumas Bottle: Pediatric Normal [facility] Comment on above: Performed By: #### C VDTBH #### [facility] [address] [place] [address] Dr. Ramses Dumas C. neoformans/gattii Not detected Normal NOT DETECTED [facility] Comment on above: Performed By: #### C VDTBH #### [facility] [address] [place] [address] Dr. Ramses Dumas Kim albicans Not detected Normal NOT DETECTED [facility] Comment on above: Performed By: #### C VDTBH #### [facility] [address] [place] [address] Dr. Ramses Dumas Kim auris Not detected Normal NOT DETECTED [facility] Comment on above: Performed By: #### C VDTBH #### [facility] [address] [place] [address] Dr. Ramses Dumas Kim glabrata Not detected Normal NOT DETECTED [facility] Comment on above: Performed By: #### C VDTBH #### [facility] [address] [place] [address] Dr. Ramses Dumas Kim Krusei Not detected Normal NOT DETECTED [facility] Comment on above: Performed By: #### C VDTBH #### [facility] [address] [place] [address] Dr. Ramses Dumas Kim Parapsilosis Not detected Normal NOT DETECTED [facility] Comment on above: Performed By: #### C VDTBH #### [facility] [address] [place] [address] Dr. Ramses Dumas Kim Tropicalis Not detected Normal NOT DETECTED [facility] Comment on above: Performed By: #### C VDTBH #### [facility] [address] [place] [address] Dr. Ramses Dumas CTX-M Resistant Gene Not Applicable Normal NOT DETECTE D [facility] Comment on above: Performed By: #### C VDTBH #### [facility] [address] [place] [address] Dr. Ramses Dumas E. Cloacae complex Not detected Normal NOT DETECTED [facility] Comment on above: Performed By: #### C VDTBH #### [facility] [address] [place] [address] Dr. Ramses Dumas E. faecalis Not detected Normal NOT DETECTED [facility] Comment on above: Performed By: #### C VDTBH #### [facility] [address] [place] [address] Dr. Ramses Dumas E. faecium Not detected Normal NOT DETECTED [facility] Comment on above: Performed By: #### C VDTBH #### [facility] [address] [place] [address] Dr. Ramses Dumas Enterobacteriaceae Not detected Normal NOT DETECTED [facility] Comment on above: Performed By: #### C VDTBH #### [facility] [address] [place] [address] Dr. Ramses Dumas Escherichia coli Not detected Normal NOT DETECTED [facility] Comment on above: Performed By: #### C VDTBH #### [facility] [address] [place] [address] Dr. Ramses Dumas H. influenzae Not detected Normal NOT DETECTED [facility] Comment on above: Performed By: #### C VDTBH #### [facility] [address] [place] [address] Dr. Ramses Dumas IMP Resistant Gene Not Applicable Normal NOT DETECTED [facility] Comment on above: Performed By: #### C VDTBH #### [facility] [address] [place] [address] Dr. Ramses Dumas K. oxytoca Not detected Normal NOT DETECTED [facility] Comment on above: Performed By: #### C VDTBH #### [facility] [address] [place] [address] Dr. Ramses Dumas K. pneumoniae Not detected Normal NOT DETECTED [facility] Comment on above: Performed By: #### C VDTBH #### [facility] [address] [place] [address] Dr. Ramses Dumas Klebsiella aerogenes Not detected Normal NOT DETECTED [facility] Comment on above: Performed By: #### C VDTBH #### [facility] [address] [place] [address] Dr. Ramses Dumas KPC Resistant Gene Not detected Normal NOT DETECTED [facility] Comment on above: Performed By: #### C VDTBH #### [facility] [address] [place] [address] Dr. Ramses Dumas List. monocytogenes Not detected Normal NOT DETECTED [facility] Comment on above: Performed By: #### C VDTBH #### [facility] [address] [place] [address] Dr. Ramses Dumas Mcr-1 Resistant Gene Not Applicable Normal NOT DETECTE D [facility] Comment on above: Performed By: #### C VDTBH #### [facility] [address] [place] [address] Dr. Ramses Dumas mecA/C Not Applicable Normal NOT DETECTED [facility] Comment on above: Performed By: #### C VDTBH #### [facility] [address] [place] [address] Dr. Ramses Dumas mecA/C MREJ Not Applicable Normal NOT DETECTED [facility] Comment on above: Performed By: #### C VDTBH #### [facility] [address] [place] [address] Dr. Ramses Dumas N. meningitidis Not detected Normal NOT DETECTED [facility] Comment on above: Performed By: #### C VDTBH #### [facility] [address] [place] [address] Dr. Ramses Dumas NDM Resistant Gene Not Applicable Normal NOT DETECTED [facility] Comment on above: Performed By: #### C VDTBH #### [facility] [address] [place] [address] Dr. Ramses Dumas Oxa-48-like Not Applicable Normal NOT DETECTED [facility] Comment on above: Performed By: #### C VDTBH #### [facility] [address] [place] [address] Dr. Ramses Dumas Proteus Not detected Normal NOT DETECTED [facility] Comment on above: Performed By: #### C VDTBH #### [facility] [address] [place] [address] Dr. Ramses Dumas Pseud. aeruginosa Not detected Normal NOT DETECTED [facility] Comment on above: Performed By: #### C VDTBH #### [facility] [address] [place] [address] Dr. Ramses Dumas S. maltophilia Not detected Normal NOT DETECTED [facility] Comment on above: Performed By: #### C VDTBH #### [facility] [address] [place] [address] Dr. Ramses Dumas Salmonella Not detected Normal NOT DETECTED [facility] Comment on above: Performed By: #### C VDTBH #### [facility] [address] [place] [address] Dr. Ramses Dumas Seratia marcescens Not detected Normal NOT DETECTED [facility] Comment on above: Performed By: #### C VDTBH #### [facility] [address] [place] [address] Dr. Ramses Dumas Site: unknown/not given Normal [facility] Comment on above: Performed By: #### C VDTBH #### [facility] [address] [place] [address] Dr. Ramses Dumas Stapphillip. aureus Not detected Normal NOT DETECTED [facility] Comment on above: Performed By: #### C VDTBH #### [facility] [address] [place] [address] Dr. Ramses Dumas Stapphillip. epidermidis Not detected Normal NOT DETECTED [facility] Comment on above: Performed By: #### C VDTBH #### [facility] [address] [place] [address] Dr. Ramses Dumas Stapphillip. lugdunensis Not detected Normal NOT DETECTED [facility] Comment on above: Performed By: #### C VDTBH #### [facility] [address] [place] [address] Dr. Ramses Dumas Staphylococcus Not detected Normal NOT DETECTED [facility] Comment on above: Performed By: #### C VDTBH #### [facility] [address] [place] [address] Dr. Ramses Dumas Strep. agalactiae Detected Critically abnormal NOT DETECTED [facility] Comment on above: Performed By: #### C VDTBH #### [facility] [address] [place] [address] Dr. Rmases Dumas Strep. pneumoniae Not detected Normal NOT DETECTED [facility] Comment on above: Performed By: #### C VDTBH #### [facility] [address] [place] [address] Dr. Ramses Dumas Strep. pyogenes Not detected Normal NOT DETECTED [facility] Comment on above: Performed By: #### C VDTBH #### [facility] [address] [place] [address] Dr. Ramses Dumas Streptococcus Detected Critically abnormal NOT DETECTED [facility] Comment on above: Performed By: #### C VDTBH #### [facility] [address] [place] [address] Dr. Ramses Dumas Efrain/B Resist. Gene Not detected Normal NOT DETECTED [facility] Comment on above: Performed By: #### C VDTBH #### [facility] [address] [place] [address] Dr. Ramses Dumas VIM Resistant Gene Not Applicable Normal NOT DETECTED [facility] Comment on above: Performed By: #### C VDTBH #### [facility] [address] [place] [address] Dr. Ramses Dumas CBC AUTO DIFFon 08-22-2022 BASO # 0.1 103/ul Normal 0.0-0.1 [facility] Comment on above: Performed By: #### U KJ 24 #### [facility] [address] [place] [address] Dr. Ramses Dumas Basophils/100 WBC (Bld) 0.7 % Normal 0.2-2.0 [facility] Comment on above: Performed By: #### U KJ 24 #### [facility] [address] [place] [address] Dr. Ramses Dumas EO # 0.1 103/ul Normal 0.0-0.7 [facility] Comment on above: Performed By: #### U KJ 24 #### [facility] [address] [place] [address] Dr. Ramses Dumas Eosinophils/100 WBC (Bld) 1.7 % Normal 0.9-7.0 [facility] Comment on above: Performed By: #### U KJ 24 #### [facility] [address] [place] [address] Dr. Ramses Dumas Erythrocyte distribution width (RBC) [Ratio] 13.2 % Normal 11.0-15.0 [facility] Comment on above: Performed By: #### U KJ 24 #### [facility] [address] [place] [address] Dr. Ramses Dumas Hematocrit (Bld) [Volume fraction] 39.8 % Normal 36.0-48.0 [facility] Comment on above: Performed By: #### U KJ 24 #### [facility] [address] [place] [address] Dr. Ramses Dumas Hemoglobin (Bld) [Mass/Vol] 12.9 g/dL Normal 12.0-16.0 [facility] Comment on above: Performed By: #### U KJ 24 #### [facility] [address] [place] [address] Dr. Ramses Dumas IG # 0.02 10e3/ul Normal 0.00-0.03 [facility] Comment on above: Performed By: #### U KJ 24 #### [facility] [address] [place] [address] Dr. Ramses Dumas IG % 0.2 % Normal 0.0-0.5 [facility] Comment on above: Performed By: #### U KJ 24 #### [facility] [address] [place] [address] Dr. Ramses Dumas LYMPH # 3.2 103/ul Normal 1.2-3.8 [facility] Comment on above: Performed By: #### U KJ 24 #### [facility] [address] [place] [address] Dr. Ramses Dumas Lymphocytes/100 WBC (Bld) 40.0 % Normal 20.5-60.0 [facility] Comment on above: Performed By: #### U KJ 24 #### [facility] [address] [place] [address] Dr. Ramses Dumas MANUAL DIFF REQ NO Normal [facility] Comment on above: Performed By: #### U KJ 24 #### [facility] [address] [place] [address] Dr. Ramses Dumas MCH (RBC) [Entitic mass] 26.6 pg Critically low 26.7-34.0 [facility] Comment on above: Performed By: #### U KJ 24 #### [facility] [address] [place] [address] Dr. Ramses Dumas MCHC (RBC) [Mass/Vol] 32.4 g/dL Normal 29.9-35.2 [facility] Comment on above: Performed By: #### U KJ 24 #### [facility] [address] [place] [address] Dr. Ramses Dumas MCV (RBC) [Entitic vol] 82.1 fL Normal 81.0-99.0 [facility] Comment on above: Performed By: #### U KJ 24 #### [facility] [address] [place] [address] Dr. Ramses Dumas MONO # 0.6 103/ul Normal 0.3-0.8 [facility] Comment on above: Performed By: #### U KJ 24 #### [facility] [address] [place] [address] Dr. Ramses Dumas Monocytes/100 WBC (Bld) 7.5 % Normal 1.7-12.0 [facility] Comment on above: Performed By: #### U KJ 24 #### [facility] [address] [place] [address] Dr. Ramses Dumas NEUT # 4.0 103/ul Normal 1.4-6.5 [facility] Comment on above: Performed By: #### U KJ 24 #### [facility] [address] [place] [address] Dr. Ramses Dumas Neutrophils/100 WBC (Bld) 49.9 % Normal 43.0-75.0 [facility] Comment on above: Performed By: #### U KJ 24 #### [facility] [address] [place] [address] Dr. Ramses Dumas Platelet mean volume (Bld) [Entitic vol] 9.3 fL Critically low 9.5-13.5 [facility] Comment on above: Performed By: #### U KJ 24 #### [facility] [address] [place] [address] Dr. Ramses Dumas PLT 354 103/ul Normal 150-450 [facility] Comment on above: Performed By: #### U KJ 24 #### [facility] [address] [place] [address] Dr. Ramses Dumas RBC 4.85 106/ul Normal 4.20-5.40 [facility] Comment on above: Performed By: #### U KJ 24 #### [facility] [address] [place] [address] Dr. Ramses Dumas WBC 8.1 103/ul Normal 4.0-11.0 [facility] Comment on above: Performed By: #### U KJ 24 #### [facility] [address] [place] [address] ABD/PELVIS WO CONon [...] KESHIA IRIZARRY Date: 2022-08-22 07:04 Normal [facility]on SARS-CoV-2 (COVID-19) RNA FRANCESCA+probe Ql (Unsp spec) Not detected Normal NOT DETECTED [facility] Comment on above: Result Comment: When diagnostic [...] for this test is supported by the Song Lyricist of Health and Human Service's declaration that [...] used). Performed By: #### C MP #### [facility] [address] [place] [address] Dr. Ramses Dumas ER URINE PROFILEon 2 Bilirubin Ql (U) Negative Normal NEGATIVE [facility] Comment on above: Performed By: #### U RCX #### [facility] [address] [place] [address] Dr. Ramses Dumas Clarity (U) CLEAR Normal CLEAR [facility] Comment on above: Performed By: #### U RCX #### [facility] [address] [place] [address] Dr. Ramses Dumas Color (U) LT. YELLOW Normal YELLOW [facility] Comment on above: Performed By: #### U RCX #### [facility] [address] [place] [address] Dr. Ramses DELEON A micrscopic examination will be performed if indicated. Normal [facility] Comment on above: Performed By: #### U RCX #### [facility] [address] [place] [address] Dr. Ramses Dumas Glucose Ql (U) Negative Normal NEGATIVE [facility] Comment on above: Performed By: #### U RCX #### [facility] [address] [place] [address] Dr. Ramses Dumas Hemoglobin Ql (U) SMALL Abnormal NEGATIVE [facility] Comment on above: Performed By: #### U RCX #### [facility] [address] [place] [address] Dr. Ramses Dumas Ketones Ql (U) Negative Normal NEGATIVE [facility] Comment on above: Performed By: #### U RCX #### [facility] [address] [place] [address] Dr. Ramses Dumas LEUKOCYTES SMALL Abnormal NEGATIVE [facility] Comment on above: Performed By: #### U RCX #### [facility] [address] [place] [address] Dr. Ramses Dumas Nitrite Ql (U) Negative Normal NEGATIVE [facility] Comment on above: Performed By: #### U RCX #### [facility] [address] [place] [address] Dr. Ramses Dumas pH (U) 7.0 [pH] Normal 5-9 [facility] Comment on above: Performed By: #### U RCX #### [facility] [address] [place] [address] Dr. Ramses Dumas Protein (U) [Mass/Vol] 30 mg/dL Abnormal NEGAT CHRIS/ TRACE [facility] Comment on above: Performed By: #### U RCX #### [facility] [address] [place] [address] Dr. Ramses Dumas SPEC GRAVITY 1.020 Normal 1.005-<=1.02 5 [facility] Comment on above: Performed By: #### U RCX #### [facility] [address] [place] [address] Dr. Ramses Dumas UR MICRO IND INDICATED Normal [facility] Comment on above: Performed By: #### U RCX #### [facility] [address] [place] [address] Dr. Ramses Dumas Urobilinogen Qn (U) 0.2 {Lucero'U}/dL Normal 0.2 - 1. 0 [facility] Comment on above: Performed By: #### U RCX #### [facility] [address] [place] [address] Dr. Ramses Dumas LACTATE/LACTIC ACIDon 2021 Lactate [Moles/Vol] 2.3 mmol/L Critically high 0.4-1.9 [facility] Comment on above: Performed By: #### U RCX #### [facility] [address] [place] [address] Dr. Ramses Dumas URon 08-22-2022 , QUAL Negative Normal NEGATIVE [facility] Comment on above: Performed By: #### U RCX #### [facility] [address] [place] [address] Dr. Ramses Dumsa PROF 14(COMP METB)on 022 Albumin [Mass/Vol] 3.5 g/dL Normal 3.4-5.0 [facility] Comment on above: Performed By: #### U RCX #### [facility] [address] [place] [address] Dr. Ramses Dumas Albumin/Globulin [Mass ratio] 0.9 {ratio} Normal [facility] Comment on above: Performed By: #### U RCX #### [facility] [address] [address] [address] Ramses Dumas ALP [Catalytic activity/Vol] 92 U/L Normal 46-116 [facility] Comment on above: Performed By: #### U RCX #### [facility] [address] [address] [address] Ramses Dumas ALT [Catalytic activity/Vol] 139 U/L Critically high 14-59 [facility] Comment on above: Performed By: #### U RCX #### [facility] [address] [address] [address] Ramses Dumas Anion gap [Moles/Vol] 10.2 mmol/L Normal [facility] Comment on above: Performed By: #### U RCX #### [facility] [address] [address] [address] Ramses Dumas AST [Catalytic activity/Vol] 112 U/L Critically high 15-37 [facility] Comment on above: Performed By: #### U RCX #### [facility] [address] [address] [address] Ramses Dumas Bilirubin [Mass/Vol] 0.2 mg/dL Normal 0.2-1.0 [facility] Comment on above: Performed By: #### U RCX #### [facility] [address] [address] [address] Ramses Dumas Calcium [Mass/Vol] 8.8 mg/dL Normal 8.5-10.1 [facility] Comment on above: Performed By: #### U RCX #### [facility] [address] [address] [address] Ramses Dumas Chloride [Moles/Vol] 105 mmol/L Normal 98-107 [facility] Comment on above: Performed By: #### U RCX #### [facility] [address] [address] [address] Ramses Dumas CO2 [Moles/Vol] 26.3 mmol/L Normal 21.0-32.0 [facility] Comment on above: Performed By: #### U RCX #### [facility] [address] [place] [address] Dr. Ramses Dumas Creatinine [Mass/Vol] 0.95 mg/dL Normal 0.55-1.02 [facility] Comment on above: Performed By: #### U RCX #### [facility] [address] [place] [address] Dr. Ramses Dumas EGFR-AF CONGOLESE >60 Normal >=60 [facility] Comment on above: Performed By: #### U RCX #### [facility] [address] [address] [address] Ramses Dumas EGFR-NON AF CONGOLESE >60 Normal >=60 [facility] Comment on above: Performed By: #### U RCX #### [facility] [address] [place] [address] Dr. Ramses Dumas Globulin (S) [Mass/Vol] 3.9 g/dL Normal [facility] Comment on above: Performed By: #### U RCX #### [facility] [address] [place] [address] Dr. Ramses Dumas Glucose [Mass/Vol] 137 mg/dL Critically high 74-106 [facility] Comment on above: Performed By: #### U RCX #### [facility] [address] [place] [address] Dr. Ramses Dumas Potassium [Moles/Vol] 3.5 mmol/L Normal 3.5-5.1 [facility] Comment on above: Performed By: #### U RCX #### [facility] [address] [place] [address] Dr. Ramses Dumas Protein [Mass/Vol] 7.4 g/dL Normal 6.4-8.2 [facility] Comment on above: Performed By: #### U RCX #### [facility] [address] [place] [address] Dr. Ramses Dumas Sodium [Moles/Vol] 138 mmol/L Normal 136-145 [facility] Comment on above: Performed By: #### U RCX #### [facility] [address] [place] [address] Dr. Ramses Dumas Urea nitrogen [Mass/Vol] 11.0 mg/dL Normal 7.0-18.0 [facility] Comment on above: Performed By: #### U RCX #### [facility] [address] [place] [address] Dr. Ramses Dumas Urea nitrogen/Creatinine [Mass ratio] 11.6 mg/mg Normal [facility] Comment on above: Performed By: #### U RCX #### [facility] [address] [place] [address] Dr. Ramses Dumas URINE MICROSCOPIC ONLYon BACTERIA LARGE Abnormal NONE SEEN [facility] Comment on above: Performed By: #### U RCX #### [facility] [address] [place] [address] Dr. Ramses Dumas Bacteria identified Cx Nom (U) CX ALREADY ORDERED Normal [facility] Comment on above: Performed By: #### U RCX #### [facility] [address] [place] [address] Dr. Ramses Dumas CAST NONE SEEN Normal NONE SEEN [facility] Comment on above: Performed By: #### U RCX #### [facility] [address] [place] [address] Dr. Ramses Dumas Crystals LM Nom (Urine sed) NONE SEEN Normal NONE SEEN [facility] Comment on above: Performed By: #### U RCX #### [facility] [address] [place] [address] Dr. Ramses Dumas Epithelial cells LM Ql (Urine sed) MANY Abnormal NONE SEEN /RARE [facility] Comment on above: Performed By: #### U RCX #### [facility] [address] [place] [address] Dr. Ramses Dumas MUCOUS NONE SEEN Normal NONE SEEN [facility] Comment on above: Performed By: #### U RCX #### [facility] [address] [place] [address] Dr. Ramses Dumas RBC 5-10 Abnormal 0-2 [facility] Comment on above: Performed By: #### U RCX #### [facility] [address] [place] [address] Dr. Ramses Dumas WBC 50-75 Abnormal NONE SEEN [facility] Comment on above: Performed By: #### U RCX #### [facility] [address] [place], [place] [id number] Dr. Ramsse Dumas CULTURE URINEon 08-15-2022 CULTURE URINE Isolate 1 Streptococcus agalactiae >100,000 cfu/mL of ORGANISM 1 Streptococcus agalactiae ANTIBIOTIC M.I.C RX STATUS Benzylpenicillin <=0.06 S F Ampicillin <=0.25 S F Cefotaxime <=0.12 S F Ceftriaxone <=0.12 S F Levofloxacin 0.5 S F Erythromycin >=8 R F Clindamycin >=1 R F Linezolid <=2 S F Vancomycin 0.5 S F Tetracycline >=16 R F Normal [facility] Comment on above: Performed By: #### U RCX #### [facility] [address] [place] [address] [id number] [address] Ramses Dumas Lipid Panelon 08-14-2022 Cholesterol [Mass/Vol] 162 mg/dL Normal 140-200 [facility] Comment on above: Result Comment: Chol less than 200 mg/dl low risk Chol 201-239 mg/dl borderline risk Chol 240 mg/dl and greater high risk Performed By: #### L IPID, TSH3 wRFLX, [id number] #### [facility] [address] [id number] [facility] Cholesterol in HDL [Mass/Vol] 42 mg/dL Normal 35-85 [facility] Comment on above: Result Comment: HDL CHOL ATP-III CLASSIFICATION Cardiovascular Risk HDL > or equal to 60 mg/dL LOW HDL < 40 mg/dL HIGH Performed By: #### L IPID, TSH3 wRFLX, [id number] #### [facility] [address] [place] [address] [facility] Cholesterol.total/Chol esterol in HDL [Mass ratio] 3.9 {ratio} Normal <5.0 [facility] Comment on above: Performed By: #### L IPID, TSH3 wRFLX, [id number] #### [facility] [address] [place] [address] [place] LDL Cholesterol,Calculated 108 mg/dL High 0-100 [facility] Comment on above: Result Comment: LDL ATP III CLASSIFICATION LDL less than 100 mg/dL Optimal LDL 100-129 mg/dL Near or above optimal LDL 130-159 mg/dL Borderline high LDL 160-189 mg/dL High LDL greater than 189 mg/dL Very high Performed By: #### L IPID, TSH3 wRFLX, [id number] #### [facility] [address] Triglyceride w/Reflex 59 mg/dL Normal 35-149 [facility] Comment on above: Result Comment: TRIG ATP III CLASSIFICATION TRIG less than 150 mg/dL Normal TRIG 150-199 mg/dL Borderline high TRIG 200-500 mg/dL High TRIG greater than 500 mg/dL Very high Standard traceable to the Center for Disease Conrtrol and Prevention (CDC) test method. Performed By: #### L IPID, TSH3 wRFLX, [id number] #### [facility] [address] VLDL CHOLESTEROL 11 mg/dL Normal [facility] Comment on above: Performed By: #### L IPID, TSH3 wRFLX, [id number] #### [facility] [address] [id number] [facility] Thyroid Stim Hormone w/Rflxo n 08-14-2022 Thyroid Stim Hormone w/Rflx 0.84 u[iU]/mL Normal 0.45-5.33 [facility] Comment on above: Performed By: #### L IPID, TSH3 wRFLX, [id number] #### [facility] [address] [id number] [facility] Vitamin D 25 Hydroxy Totalon 08-14-2022 Vitamin D 25 Hydroxy Total 17.7 ng/mL Low 30-100 [facility] Comment on above: Result Comment: THA MIN D STATUS 25(OH)VITAMIN D RANGE (ng/mL) Deficient <20 Insufficient 20 to <30 Sufficient 30 to 100 Reference: José Miguel MF,Jennifer NC, Mady MARTI, et al. Evaluation,treatment, and prevention of vitamin D deficiency; an Endocrine Society clinical practice guideline. JCEM. 2010; 96(7):1911-30. PERFORMED BY: [place] [address] PATHOLOGIST [employer] ACCOUNTS DIRECTOR AB ALCANTARA M.D. Performed By: #### L IPID, TSH3 wRFLX, [id number] #### [address] ACETAMINOPHENon 08-13-2022 Acetaminophen [Mass/Vol] ug/mL Critically low 10.0-30.0 [facility] Comment on above: Performed By: #### U RCX #### [facility] [address] [place] [address] Dr. Ramses Dumas CBC AUTO DIFFon 08-13-2022 BASO # 0.1 103/ul Normal 0.0-0.1 [facility] Comment on above: Performed By: #### C VDTBH #### [facility] [address] [place] [address] Dr. Ramses Dumas Basophils/100 WBC (Bld) 0.8 % Normal 0.2-2.0 [facility] Comment on above: Performed By: #### C VDTBH #### [facility] [address] [address] [address] Ramses Dumas EO # 0.1 103/ul Normal 0.0-0.7 [facility] Comment on above: Performed By: #### C VDTBH #### [facility] [address] [address] [address] Ramses Dumas Eosinophils/100 WBC (Bld) 1.6 % Normal 0.9-7.0 [facility] Comment on above: Performed By: #### C VDTBH #### [facility] [address] [place] [address] Dr. Ramses Dumas Erythrocyte distribution width (RBC) [Ratio] 13.3 % Normal 11.0-15.0 [facility] Comment on above: Performed By: #### C VDTBH #### [facility] [address] [place] [address] Dr. Ramses Dumas Hematocrit (Bld) [Volume fraction] 40.6 % Normal 36.0-48.0 [facility] Comment on above: Performed By: #### C VDTBH #### [facility] [address] [place] [address] Dr. Ramses Dumas Hemoglobin (Bld) [Mass/Vol] 13.2 g/dL Normal 12.0-16.0 [facility] Comment on above: Performed By: #### C VDTBH #### [facility] [address] [place] [address] Dr. Ramses Dumas IG # 0.01 10e3/ul Normal 0.00-0.03 [facility] Comment on above: Performed By: #### C VDTBH #### [facility] [address] [place] [address] Dr. Ramses Dumas IG % 0.2 % Normal 0.0-0.5 [facility] Comment on above: Performed By: #### C VDTBH #### [facility] [address] [place] [address] Dr. Ramses Dumas LYMPH # 2.4 103/ul Normal 1.2-3.8 [facility] Comment on above: Performed By: #### C VDTBH #### [facility] [address] [place] [address] Dr. Ramses Dumas Lymphocytes/100 WBC (Bld) 37.7 % Normal 20.5-60.0 [facility] Comment on above: Performed By: #### C VDTBH #### [facility] [address] [place] [address] Dr. Ramses Dumas MANUAL DIFF REQ NO Normal [facility] Comment on above: Performed By: #### C VDTBH #### [facility] [address] [place] [address] Dr. Ramses Dumas MCH (RBC) [Entitic mass] 26.7 pg Normal 26.7-34.0 [facility] Comment on above: Performed By: #### C VDTBH #### [facility] [address] [place] [address] Dr. Ramses Dumas MCHC (RBC) [Mass/Vol] 32.5 g/dL Normal 29.9-35.2 [facility] Comment on above: Performed By: #### C VDTBH #### [facility] [address] [place] [address] Dr. Ramses Dumas MCV (RBC) [Entitic vol] 82.0 fL Normal 81.0-99.0 [facility] Comment on above: Performed By: #### C VDTBH #### [facility] [address] [place] [address] Dr. Ramses Dumas MONO # 0.6 103/ul Normal 0.3-0.8 [facility] Comment on above: Performed By: #### C VDTBH #### [facility] [address] [place] [address] Dr. Ramses Dumas Monocytes/100 WBC (Bld) 8.6 % Normal 1.7-12.0 [facility] Comment on above: Performed By: #### C VDTBH #### [facility] [address] [place] [address] Dr. Ramses Dumas NEUT # 3.3 103/ul Normal 1.4-6.5 [facility] Comment on above: Performed By: #### C VDTBH #### [facility] [address] [place] [address] Dr. Ramses Dumas Neutrophils/100 WBC (Bld) 51.1 % Normal 43.0-75.0 [facility] Comment on above: Performed By: #### C VDTBH #### [facility] [address] [place] [address] Dr. Ramses Dumas Platelet mean volume (Bld) [Entitic vol] 8.7 fL Critically low 9.5-13.5 [facility] Comment on above: Performed By: #### C VDTBH #### [facility] [address] [place] [address] Dr. Ramses Dumas PLT 409 103/ul Normal 150-450 [facility] Comment on above: Performed By: #### C VDTBH #### [facility] [address] [place] [address] Dr. Ramses Dumas RBC 4.95 106/ul Normal 4.20-5.40 [facility] Comment on above: Performed By: #### C VDTBH #### [facility] [address] [place] [address] Dr. Ramses Dumas WBC 6.4 103/ul Normal 4.0-11.0 [facility] Comment on above: Performed By: #### C VDTBH #### [facility] [address] [place] [address] Dr. Ramses Dumas Covid-19 PCR ([facility])on 07-20 SARS-CoV-2 (COVID-19) RNA FRANCESCA+probe Ql (Unsp spec) Not detected Normal NOT DETECTED [facility] Comment on above: Result Comment: When diagnostic [...] for this test is supported by the [place] of Health and Human Service's declaration that [...] used). Performed By: #### C VDTBH #### [facility] [address] [place] [address] Dr. Ramses Dumas DRUG SCREEN RAPID (URINE)on 08-13-2022 AMP Negative Normal NEGATIVE [facility] Comment on above: Performed By: #### C BC #### [facility] [address] [place] [address] Dr. Ramses Dumas BAR Negative Normal NEGATIVE [facility] Comment on above: Performed By: #### C BC #### [facility] [address] [place] [address] Dr. Ramses Dumas BUP Negative Normal NEGATIVE [facility] Comment on above: Performed By: #### C BC #### [facility] [address] [place] [address] Dr. Ramses Dumas BZO Negative Normal NEGATIVE [facility] Comment on above: Performed By: #### C BC #### [facility] [address] [place] [address] Dr. Ramses Dumas ODILIA Negative Normal NEGATIVE [facility] Comment on above: Performed By: #### C BC #### [facility] [address] [place] [address] Dr. Ramses Dumas CUT-OFFS SEE BELOW Normal [facility] Comment on above: Result Comment: AMP [...] ng/mL Performed By: #### C BC #### [facility] [address] [place] [address] Dr. Ramses Dumas DRUG CUT HEADER DRUG CLASS TEST SYSTEM CUT-OFF CONCENTRATIONS ARE FOLLOWS: Normal [facility] Comment on above: Performed By: #### C BC #### [facility] [address] [place] [address] Dr. Ramses Dumas mAMP Negative Normal NEGATIVE [facility] Comment on above: Performed By: #### C BC #### [facility] [address] [place] [address] Dr. Ramses Dumas MTD Negative Normal NEGATIVE [facility] Comment on above: Performed By: #### C BC #### [facility] [address] [place] [address] Dr. Ramses Dumas OPI Negative Normal NEGATIVE [facility] Comment on above: Performed By: #### C BC #### [facility] [address] [place] [address] Dr. Ramses Dumas OXY Negative Normal NEGATIVE [facility] Comment on above: Performed By: #### C BC #### [facility] [address] [place] [address] Dr. Ramses Dumas PCP Negative Normal NEGATIVE [facility] Comment on above: Performed By: #### C BC #### [facility] [address] [place] [address] Dr. Ramses Dumas PPX Negative Normal NEGATIVE [facility] Comment on above: Performed By: #### C BC #### [facility] [address] [place] [address] Dr. Ramses Dumas TCA Negative Normal NEGATIVE [facility] Comment on above: Performed By: #### C BC #### [facility] [address] [place] [address] Dr. Ramses Dumas THC Negative Normal NEGATIVE [facility] Comment on above: Performed By: #### C BC #### [facility] [address] [place] [address] Dr. Ramses Dumas ER URINE PROFILEon 2 Bilirubin Ql (U) Negative Normal NEGATIVE [facility] Comment on above: Performed By: #### C BC #### [facility] [address] [place] [address] Dr. Ramses Dumas Clarity (U) CLEAR Normal CLEAR [facility] Comment on above: Performed By: #### C BC #### [facility] [address] [place] [address] Dr. Ramses Dumas Color (U) LT. YELLOW Normal YELLOW [facility] Comment on above: Performed By: #### C BC #### [facility] [address] [place] [address] Dr. Ramses Dumas ERUCARLOS ENRIQUE A micrscopic examination will be performed if indicated. Normal [facility] Comment on above: Performed By: #### C BC #### [facility] [address] [place] [address] Dr. Ramses Dumas Glucose Ql (U) Negative Normal NEGATIVE [facility] Comment on above: Performed By: #### C BC #### [facility] [address] [place] [address] Dr. Ramses Dumas Hemoglobin Ql (U) LARGE Abnormal NEGATIVE [facility] Comment on above: Performed By: #### C BC #### [facility] [address] [place] [address] Dr. Ramses Dumas Ketones Ql (U) Negative Normal NEGATIVE [facility] Comment on above: Performed By: #### C BC #### [facility] [address] [place] [address] Dr. Ramses Dumas LEUKOCYTES LARGE Abnormal NEGATIVE [facility] Comment on above: Performed By: #### C BC #### [facility] [address] [place] [address] Dr. Ramses Dumas Nitrite Ql (U) Positive Abnormal NEGATIVE [facility] Comment on above: Performed By: #### C BC #### [facility] [address] [place] [address] Dr. Ramses Dumas pH (U) 6.0 [pH] Normal 5-9 [facility] Comment on above: Performed By: #### C BC #### [facility] [address] [place] [address] Dr. Ramses Dumas Protein (U) [Mass/Vol] 30 mg/dL Abnormal NEGAT CHRIS/ TRACE [facility] Comment on above: Performed By: #### C BC #### [facility] [address] [place] [address] Dr. Ramses Dumas SPEC GRAVITY >=1.030 Abnormal 1.005-<=1.02 5 [facility] Comment on above: Performed By: #### C BC #### [facility] [address] [place] [address] Dr. Ramses Dumas UR MICRO IND INDICATED Normal [facility] Comment on above: Performed By: #### C BC #### [facility] [address] [place] [address] Dr. Ramses Dumas Urobilinogen Qn (U) 0.2 {Lucero'U}/dL Normal 0.2 - 1. 0 [facility] Comment on above: Performed By: #### C BC #### [facility] [address] [place] [address] Dr. Ramses Dumas ETHANOL (BLD ALC)on 08-13-20 22 ALC NOTE NOTE: 80 mg/dl is th e legal limit for a blood alcohol level Normal [facility] Comment on above: Performed By: #### B LDCX2 #### [facility] [address] [place] [address] Dr. Ramses Dumas Ethanol [Mass/Vol] mg/dL Normal [facility] Comment on above: Performed By: #### B LDCX2 #### [facility] [address] [place] [address] Dr. Ramses Dumas URon 08-13-2022 , QUAL Negative Normal NEGATIVE [facility] Comment on above: Performed By: #### C BC #### [facility] [address] [place] [address] Dr. Ramses Dumas PROF 14(COMP METB)on 022 Albumin [Mass/Vol] 3.8 g/dL Normal 3.4-5.0 [facility] Comment on above: Performed By: #### U RCX #### [facility] [address] [place] [address] Dr. Ramses Dumas Albumin/Globulin [Mass ratio] 0.9 {ratio} Normal [facility] Comment on above: Performed By: #### U RCX #### [facility] [address] [place] [address] Dr. Ramses Dumas ALP [Catalytic activity/Vol] 82 U/L Normal 46-116 [facility] Comment on above: Performed By: #### U RCX #### [facility] [address] [place] [address] Dr. Ramses Dumas ALT [Catalytic activity/Vol] 41 U/L Normal 14-59 [facility] Comment on above: Performed By: #### U RCX #### [facility] [address] [place] [address] Dr. Ramses Dumas Anion gap [Moles/Vol] 9.3 mmol/L Normal [facility] Comment on above: Performed By: #### U RCX #### [facility] [address] [address] [address] Ramses Dumas AST [Catalytic activity/Vol] 21 U/L Normal 15-37 [facility] Comment on above: Performed By: #### U RCX #### [facility] [address] [address] [address] Ramses Dumas Bilirubin [Mass/Vol] 0.3 mg/dL Normal 0.2-1.0 [facility] Comment on above: Performed By: #### U RCX #### [facility] [address] [place] [address] Dr. Ramses Dumas Calcium [Mass/Vol] 8.9 mg/dL Normal 8.5-10.1 [facility] Comment on above: Performed By: #### U RCX #### [facility] [address] [address] [address] Ramses Dumas Chloride [Moles/Vol] 105 mmol/L Normal 98-107 [facility] Comment on above: Performed By: #### U RCX #### [facility] [address] [address] [address] Ramses Dumas CO2 [Moles/Vol] 28.5 mmol/L Normal 21.0-32.0 [facility] Comment on above: Performed By: #### U RCX #### [facility] [address] [address] [address] Ramses Dumas Creatinine [Mass/Vol] 0.81 mg/dL Normal 0.55-1.02 [facility] Comment on above: Performed By: #### U RCX #### [facility] [address] [place] [address] Dr. Ramses Dumas EGFR-AF CONGOLESE >60 Normal >=60 [facility] Comment on above: Performed By: #### U RCX #### [facility] [address] [address] [address] Ramses Dumas EGFR-NON AF CONGOLESE >60 Normal >=60 [facility] Comment on above: Performed By: #### U RCX #### [facility] [address] [address] [address] Ramses Dumas Globulin (S) [Mass/Vol] 4.1 g/dL Normal [facility] Comment on above: Performed By: #### U RCX #### [facility] [address] [address] [address] Ramses Dumas Glucose [Mass/Vol] 100 mg/dL Normal 74-106 [facility] Comment on above: Performed By: #### U RCX #### [facility] [address] [address] [address] Ramses Dumas Potassium [Moles/Vol] 3.8 mmol/L Normal 3.5-5.1 [facility] Comment on above: Performed By: #### U RCX #### [facility] [address] [place] [address] Dr. Ramses Dumas Protein [Mass/Vol] 7.9 g/dL Normal 6.4-8.2 [facility] Comment on above: Performed By: #### U RCX #### [facility] [address] [place] [address] Dr. Ramses Dumas Sodium [Moles/Vol] 139 mmol/L Normal 136-145 [facility] Comment on above: Performed By: #### U RCX #### [facility] [address] [place] [address] Dr. Ramses Dumas Urea nitrogen [Mass/Vol] 10.0 mg/dL Normal 7.0-18.0 [facility] Comment on above: Performed By: #### U RCX #### [facility] [address] [address] [address] Ramses uDmas Urea nitrogen/Creatinine [Mass ratio] 12.3 mg/mg Normal [facility] Comment on above: Performed By: #### U RCX #### [facility] [address] [place] [address] Dr. Ramses Dumas SALICYLATEon 08-13-2022 SALICYLATE <2.8 Normal <=19.9 [facility] Comment on above: Performed By: #### U RCX #### [facility] [address] [place] [address] Dr. Ramses Dumas URINE MICROSCOPIC ONLYon BACTERIA LARGE Abnormal NONE SEEN [facility] Comment on above: Performed By: #### C BC #### [facility] [address] [place] [address] Dr. Ramses Dumas Bacteria identified Cx Nom (U) INDICATED Normal [facility] Comment on above: Performed By: #### C BC #### [facility] [address] [place] [address] Dr. Ramses Dumas CA OX CRYSTALS RARE Normal [facility] Comment on above: Performed By: #### C BC #### [facility] [address] [place] [address] Dr. Ramses Dumas CAST NONE SEEN Normal NONE SEEN [facility] Comment on above: Performed By: #### C BC #### [facility] [address] [place] [address] Dr. Ramses Dumas Crystals LM Nom (Urine sed) SEEN Abnormal NONE SEEN [facility] Comment on above: Performed By: #### C BC #### [facility] [address] [place] [address] Dr. Ramses Dumas Epithelial cells LM Ql (Urine sed) MODERATE Abnormal NONE SEEN /RARE [facility] Comment on above: Performed By: #### C BC #### [facility] [address] [place] [address] Dr. Ramses Dumas MUCOUS NONE SEEN Normal NONE SEEN [facility] Comment on above: Performed By: #### C BC #### [facility] [address] [place] [address] Dr. Ramses Dumas RBC 10-20 Abnormal 0-2 [facility] Comment on above: Performed By: #### C BC #### [facility] [address] [place] [address] Dr. Ramses Dumas WBC 20-50 Abnormal NONE SEEN [facility] Comment on above: Performed By: #### C BC #### [facility] [address] [address] [address] Ramses Dumas Pap IG,rfx Aptima HPV all pt hon 08-09-2022 . . Normal [facility] Comment on above: Performed By: #### C MP #### [facility] [address] [address] [address] Ramses Dumas DIAGNOSIS: Comment Abnormal [facility] Comment on above: Result Comment: EPIT HELIAL CELL ABNORMALITY. LOW GRADE SQUAMOUS INTRAEPITHELIAL LESION (LSIL). Performed By: #### C MP #### [facility] [address] [address] [address] Ramses Dumas Electronically signed by: Comment Normal [facility] Comment on above: Result Comment: Arnaud Joseph MD, Pathologist Performed By: #### C MP #### [facility] [address] [place] [address] Dr. Ramses Dumas HPV Aptima Negative Normal Negative [facility] Comment on above: Result Comment: This nucleic acid amplification test detects fourteen high-risk HPV types (16,18,31,33,35,39,45,51,52,56,58,59,66,68) without differentiation. Performed By: #### C MP #### [facility] [address] [place], [place] [id number] Dr. Ramses Dumas Methodology: Comment Normal [facility] Comment on above: Result Comment: This liquid based ThinPrep(R) pap test was screened with the use of an image guided system. Performed By: #### C MP #### [facility] [address] [id number] [address] Ramses Dumas Note: Comment Normal [facility] Comment on above: Result Comment: The Pap smear is a screening test designed to aid in the detection of premalignant and malignant conditions of the uterine cervix. It is not a diagnostic procedure and should not be used as the sole means of detecting cervical cancer. Both false-positive and false-negative reports do occur. . Performed By: #### C MP #### [facility] [address] [place] [address] Dr. Ramses Dumas Pathologist Provided ICD10 Comment Normal [facility] Comment on above: Result Comment: [id number] Performed By: #### C MP #### [facility] [address] [place], [place] [address] Dr. Ramses Dumas Performed by: Comment Normal [facility] Comment on above: Result Comment: Gail Ruano, Gas Plumbing Inspector (ASCP) Performed By: #### C MP #### [facility] [address] [place], [place] [address] Dr. Ramses Dumas Reflex Criteria: Comment Normal [facility] [place] [facility] Comment on above: Result Comment: See below for HPV testing results. . Performed By: #### C MP #### [facility] [address] [place], [place] [address] Dr. Ramses Dumas Specimen adequacy: Comment Normal [facility] Comment on above: Result Comment: Sati sfactory for evaluation. Endocervical and/or squamous metaplastic cells (endocervical component) are present. Performed By: #### C MP #### [facility] [address] [place], [place] [address] Dr. Ramses Dumas Vital Signs Date Time Vital Sign Value Performing Clinician Faci lity 03-20-2023 10:30-0400 Blood Pressure Location Caesar VILLA [facility] 03-20-2023 10:30-0400 Diastolic blood pressure 73 mm[Hg] Caesar VILLA [facility] 03-20-2023 10:30-0400 Heart rate 80 /min Caesar VILLA [facility] 03-20-2023 10:30-0400 Respiratory rate 16 /min Caesar VILLA [facility] 03-20-2023 10:30-0400 Systolic blood pressure 128 mm[Hg] Caesar VILLA [facility] Encounters Encounter Date Encounter Type Care Provider Facility Start: 12-04-2023 End: 12-05-2023 ambulatory Caesar VILLA Facility:[facility] Start: 12-04-2023 End: 12-04-2023 Patient encounter procedure Caesar Turner IDALMIS [facility] Start: 04-09-2023 End: 04-10-2023 ambulatory Caesar R IDALMIS Facility:[id number] Start: 03-20-2023 End: 03-21-2023 ambulatory Caesar Yue IDALMIS Facility:[facility] Start: 03-20-2023 End: 03-20-2023 Patient encounter procedure Caesar R IDALMIS [facility] Start: 02-16-2023 End: 02-16-[address] DOMINGO DAS . Facility:[facility] Start: 02-02-2023 End: 02-02-[address] DOMINGO DAS . Facility:[facility] Start: 12-26-2022 End: 12-27-2022 ambulatory Caesar VILLA Facility:[facility] Start: 12-26-2022 End: 12-26-2022 Patient encounter procedure Caesar Turner IDALMIS [facility] Start: 12-16-2022 End: 12-17-[address] CAESAR VILLA . Facility:[facility] Start: 12-15-2022 End: 12-16-[address] CAESAR VILLA . Facility:[facility] Start: 11-27-[address] DOMINGO DAS . Facili ty:[facility] Start: 11-07-2022 End: 11-07-[address] DOMINGO DAS . Facility:[facility] Start: 11-04-2022 Encounter for preprocedural cardiovascular examination DR TOMASZ GIBBS . [facility] Start: 11-04-2022 Encounter for preprocedural laboratory examination DR TOMASZ GIBBS . [facility] Start: 11-03-2022 End: 11-04-2022 Encounter for preprocedural cardiovascular examination DR DOMINGO DAS . Facility:[facility] Start: 11-03-2022 End: 11-04-[address] DOMINGO DAS . Facility:[facility] Start: 09-20-2022 Encounter for preprocedural laboratory examination DR CAESAR VILLA . [facility] Start: 09-18-2022 End: 09-18-[address] CAESAR VILLA . Facility:[facility] Start: 09-16-2022 End: 09-17-[address] CAESAR VILLA . Facility:[facility] Start: 09-16-2022 End: 09-17-2022 Encounter for preprocedural laboratory examination DR CASEAR VILLA . Facility:[facility] Start: 09-05-2022 End: 09-05-2022 ambulatory ORA BOND . Facility:[facility] Start: 09-04-2022 End: 09-04-2022 ambulatory DANIEL SANTIAGO Facility:[facility] Start: 09-04-2022 End: 09-04-2022 ambulatory Daniel Connor Ulises PRYOR.OIL TREATER Work Phone: Urology Comment on above: NO SHOW (Primary Dx) Start: 09-04-2022 End: 09-04-2022 Telemedicine consultation with patient Daniel Santiago CLINICAL NURSE.OIL TREATER Work Phone: [facility] Start: 08-28-2022 End: 08-29-[address] ERWIN MOORE Facility:[facility] Start: 08-22-2022 End: 08-24-[address] DOMINGO DAS . Facility:[facility] Start: 08-13-2022 End: 08-16-2022 Evaluation and management of inpatient Abdelrahma Traci Facility:[facility] Start: 08-13-2022 End: 08-13-2022 ambulatory ORA BOND . Facility:[facility] Start: 07-31-2022 Encounter for cervic al smear to confirm findings of recent normal smear following initial abnormal smear DR TOMASZ GIBBS . [facility] Start: 07-30-2022 End: 07-30-[address] DOMINGO DAS . Facility:[facility] Start: 07-30-2022 End: 07-30-2022 Encounter for cervical smear to confirm findings of recent normal smear following initial abnormal smear DR DOMINGO DAS . Facility:[facility] Start: 07-02-2022 End: 07-03-[address] DOMINGO DAS . Facility:[facility] Procedures Date Procedure Procedure Detail Performing Clinician [...] Author Start: 06-19-2022 Influenza vaccination INFLUENZA (#1) [facility] Start: 10-19-2021 DEPRESSION ASSESSMENT DEPRESSION ASS ESSMENT [facility] Start: 2021 HPV TESTING HPV TESTING [facility] Start: 2012 PAP TESTING PAP TESTING [facility] Start: 2010 Urine microalbumin profile DTAP,TDAP ,TD (1 - Tdap) [facility] Start: 2009 HEPATITIS C SCREENING HEPATITIS C NV SAROJ [facility] Start: 2009 HIV SCREENING HIV SCREENING [facility] Start: 03-14-1992 COVID-19 VACCINE (#1) COVID-19 VACCI NE (#1) [facility] Start: 1991 HEPATITIS B (1 of 3 - 3-dose series) HEPATITIS B (1 of 3 - 3-dose series) [facility] Immunizations Immunization Date Immunization Notes Care Provider Beata moore 08-01-2019 influenza virus vaccine, unspecified formulation Caesar VILLA [facility] 08-09-2018 tetanus toxoid, redu franco diphtheria toxoid, and acellular pertussis vaccine, adsorbed Caesardinesh VILLA [facility] 08-08-2018 influenza virus vaccine, unspecified formulation Caesar VILLA [facility] 06-19-2004 hepatitis B vaccine, pediatric or pediatric/adolescent dosage Caesar VILLA [facility] 03-27-2004 hepatitis B vaccine, pediatric or pediatric/adolescent dosage Caesar VILLA [facility] 12-18-2003 hepatitis B vaccine, pediatric or pediatric/adolescent dosage Caesar VILLA [facility] 12-18-2003 measles, mumps and rubella virus vaccine Caesar VILLA [facility] 04-10-1993 DTaP, unspecified formulation CaesarInvolvio [facility] 04-10-1993 poliovirus vaccine, unspecified formulation Caesar VILLA [facility] 12-28-1992 Hib, unspecified formulation Caesar VILLA [facility] 12-28-1992 measles, mumps and rubella virus vaccine Caesar VILLA [facility] 03-26-1992 Hib, unspecified formulation Caesar VILLA [facility] 01-18-1992 Hib, unspecified formulation Caesar VILLA [facility] 1991 Hib, unspecified formulation Caesar VILLA [facility] Payers Date Payer Category Payer Self-pay 2021 Medicaid [employer] MEDICA[employer] TERM 09/17 [employer] [facility] MEDICAID [id number] 2021-Present [phone] [address] [place] [address] Medicaid [id number] 1991 Unknown [id number] [id number] 1991 Unknown [id number] 2.16.840.1.361955.3.579.2.593 1991 Unknown [id number] 2.16.840.1.960943.3.579.2.593 1991 Unknown [id number] 2.16.840.1.788332.3.579.2.593 1991 Unknown [id number] 2.16.840.1.627618.3.579.2.593 1991 Unknown [id number] 2.16.840.1.317773.3.579.2.593 1991 Unknown [id number] 2.16.840.1.489499.3.579.2.593 1991 Unknown [id number] 2.16.840.1.094848.3.579.2.593 1991 Unknown [id number] 2.16.840.1.175818.3.579.2.593 1991 Unknown [id number] 2.16.840.1.740146.3.579.2.593 1991 Unknown [id number] 2.16.840.1.575865.3.579.2.593 1991 Unknown [id number] 2.16.840.1.532892.3.579.2.593 1991 Unknown [id number] 2.16.840.1.041507.3.579.2.593 1991 Unknown [id number] 2.16.840.1.951360.3.579.2.593 1991 Unknown [id number] 2.16.840.1.523643.3.579.2.593 1991 Unknown [id number] 2.16.840.1.318145.3.579.2.593 1991 Unknown [id number] 2.16.840.1.778820.3.579.2.727 1991 Unknown [id number] 2.16.840.1.563739.3.579.2.727 1991 Unknown [id number] 2.16.840.1.689617.3.579.2.727 1991 Unknown [id number] 2.16.840.1.100697.3.579.2.727 1959 Self-pay [id number] 1959 Unknown [id number] 1959 Unknown [id number] Unknown [id number] 2.16.840.1.586138.3.579.2.531 Social History Date Type Detail Facility Tobacco smoking status [facility] Tobacco smoking consumption unknown [facility] Start: 1991 Sex Assigned At Not on file C [facility] Start: 08-20-2021 End: 03-20-2023 Tobacco smoking status Never smoked tobacco (finding) [facility] Tobacco smoking status Never [facility] Sex Assigned At Female [facility] Functional Status Date Assessment Result Facility 03-20-2023 Functional Status N/A [facility] Clinical Notes 07-03-2022 to 03-20-2023 Daniel Santiago APRN.OIL TREATER - 09/04/2022 7:40 AM EST Note Date & Type Note Facility 03-20-2023 Hospital Discharge instructions Follow Up Care 03/20/2023 11:51:58 With:IDALMIS BORDEN, Caesar Turner, URL Address: [address] [place] [id number] When: Unknown [facility] [place] 03-20-2023 Hospital Discharge instructions Patient Education 03/20/2023 [...] include: ?8 oz (237 mL) of milk, wwhtzoh-qdsavycsrqxl-bwyhm milk, and calcium-fortifiedfruit juice. Calcium-fortified means that [...] ?Spinach (cooked), rhubarb, beets, sweet potatoes, and Cypriot chard. ?Peanuts. ?Potato chips, cook islander fries, and baked potatoes with skin on. ?Nuts and nut products. ?Chocolate. If you regularly take a diuretic medicine, make sure to eat at least 1 or 2 servings of fruits or vegetables that are high in potassium each day. These include: ?Avocado. ?Banana. ?Brule, prune, carrot, or tomato juice. ?Baked potato. [...] magnesium, fish oil, or vitamin B6. Take salh-rjh-oxpqtvp and prescription medicines only as told by [...] Casseroles. Pizza. Lasagna. Frozen meals. Potato chips. Argentine fries. The items listed above may not [...] provider. Document Revised: 06/16/2022 Document Reviewed: 06/16/2022 [employer] Patient Education 2022 [employer] - teamwork across global offices. Follow Up Care 12/26/2022 08:46:46 With:IDALMIS BORDEN, Caesar Turner, URL Address: [facility] [address], [place] [address]- When: Unknown [facility] 11-07-2022 Note OPERATIVE NOTE OPERATION DATE: 11/07/2022 PROCEDURE: Mery endometrial ablation with LEEP. PREOPERATIVE DIAGNOSIS: Cervical dysplasia, menorrhagia. POSTOPERATIVE DIAGNOSIS: Cervical dysplasia, menorrhagia. ANESTHESIA: General. SURGEON: Tomasz Gibbs D.O. MECHANIC FOREMAN: None. BLOOD LOSS: 50 mL. URINE OUTPUT: [...] to Recovery Room in stable condition. [facility] 09-25-2022 Hospital Discharge instructions Follow Up Care 09/25/2022 13:54:04 With:IDALMIS BORDEN, Caesar Turner, ALDOL Address: [address] [place], [place] [id number]- When: Unknown [facility] 09-18-2022 Note OPERATIVE NOTE OPERATION DATE: 09/18/2022 [...] usual fashion. I started by passing a 22-Argentine Olympus cystoscope per urethra and into the [...] removed. She was then transferred to a gurwatson and wheeled to PACU in stable condition. [facility] 09-04-2022 Note HNO ID: [id number] Author: Daniel Santiago APRN.OIL TREATER Service: ? Author Type: Nurse Practitioner Type: Progress Notes Filed: 09/04/2022 7:46 AM Note Text: The patient did not show up for this appointment. The patient did not show up for this appointment. [facility] 09-04-2022 History of Present illness Narrative The patient did not show up for this appointment. The patient did not show up for this appointment. documented in this encounter [facility] 07-03-2022 Note PROCEDURE: XR ANKLE LT MIN 3 V COMPARISON: None. HISTORY: Sprain of calcaneofibular ligament FINDINGS: BONES:No fracture, acute abnormality, or significant arthropathy. SOFT TISSUES:Extensive lateral soft tissue swelling EFFUSION:None visible. OTHER: Negative. IMPRESSION: Lateral soft tissue swelling. No acute fracture Electronically authenticated by: GLEN GRAFF Date: 2022-07-03 07:09 [facility] Evaluation + Plan note Future Appointments Appointment Date:03/20/2023 10:15:00 AM Scheduled Provider:Caesar VILLA MD Location:[facility] Appointment Type:URO Office Visit [facility] Evaluation + Plan note Future Appointments Appointment Date:12/04/2023 09:45:00 AM Scheduled Provider:Caesar VILLA MD Location:[facility] Appointment Type:URO Office Visit Diagnostic Tests PendingElectrolyte Panel 03/20/23 [facility] Evaluation note Diagnosis NO SHOW- Primary [facility] Narrative No data available for this section [facility] progress note No data available for this section [facility] Summary Purpose Family History No Family History Records FoundNo Family History Records FoundNo Family History Records Found No data available for this section No Family History Records Found Advance Directives No Advanced Directives Records FoundNo Advanced Directives Records FoundNo Advanced Directives Records FoundNo Advanced Directives Records Found Additional Source Comments INFORMATION SOURCE (unrecogn ized section and content) DATE CREATED AUTHOR 08/23/2022 [facility] DATE CREATED AUTHOR AUTHOR'S ORGANIZ ATION 09/06/2022 [facility] DATE CREATED AUTHOR AUTHOR'S ORGANIZ ATION 02/19/2023 [facility] DATE CREATED AUTHOR AUTHOR'S ORGANIZ ATION 12/06/2023 Jatin Ponce [facility] Source Comments (unrecognize d section and content) In the event this informatio n is protected by the Federal Confidentiality of Alcohol and Drug Abuse Patient Records regulations: The Federal rules restrict any use of the information to criminally investigate or prosecute any alcohol or drug abuse patient.[facility] Reason for Visit (unrecogniz ed section and content) Reason Onset Date Comments No Show 09/04/2022 No show Care Teams (unrecognized sec tion and content) Pigment Mixer Relationship Specialty Start Date End Date Domingo Das MD [address] [place] [address] Referring Family Medicine 09/01/22 FOR RECORDS PERTAINING [...] BE BASED ON THE PRIMARY CLINICAL RECORDS. [facility]. provides no warranty or guarantee of the accuracy or completeness of information in this document.
--- NOTE | 2023-12-14 21:57 | ECG_ITS ---
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
--- NOTE | 2023-12-14 22:01 | ED.GENADUL1 ---
HPI - General Adult General Chief complaint: Skin/Abscess/Foreign Body Stated complaint: LUMP IN BREAST-FEELS DIZZY Time Seen by Provider: 12/14/23 21:45 Source: patient Mode of arrival: Wheelchair Limitations: no limitations History of Present Illness HPI narrative: This 33-year-old female with a family history of breast cancer presents for evaluation of a lump she found in her left breast earlier today. The patient's states that she has been septic in the past from a urinary tract infection and she has been telling him all day that she does not feel good. He states that now she appears to be becoming more sick and he is concerned that she is becoming septic. She has no specific complaints except feeling dizzy. She is status post hysterectomy. She has not had any vomiting or diarrhea. She denies any headache. She has no neck pain or stiffness.She denies any specific abdominal pain but does have chronic pelvic pain. She states she has only urinated twice today. Her states that she had leakage of fluid from the left breast after having a piercing done. She was approx 2 years ago. Related Data Home Medications Medication Instructions Recorded Confirmed No Known Home Medications 12/14/23 12/14/23 Allergies Allergy/AdvReac Type Severity Reaction Status Date / Time No Known Drug Allergies Allergy Verified 12/06/23 06:08 Review of Systems ROS Status of ROS 10 or more systems reviewed and unremarkable except as noted in history and below [facility] Medical History (Updated 12/15/23 @ 01:24 by Ximena Maria MD) Dyspareunia Menorrhagia ?N92.0 - Excessive and frequent menstruation with regular cycle (ICD-10) Dysmenorrhea ?N94.6 - Dysmenorrhea, unspecified (ICD-10) Pelvic pain ?R10.2 - Pelvic and perineal pain (ICD-10) Anemia ?D64.9 - Anemia, unspecified (ICD-10) Kidney stones ?N20.0 - Calculus of kidney (ICD-10) S/P extracorporeal shock wave therapy (03/2023) ?Z98.890 - Other specified postprocedural states (ICD-10) Bipolar disorder ?F31.9 - Bipolar disorder, unspecified (ICD-10) Ureteral stone ?N20.1 - Calculus of ureter (ICD-10) Kidney stones ?N20.0 - Calculus of kidney (ICD-10) Surgical History (Updated 05/06/23 @ 06:42 by Araceli Recinos) History of wisdom tooth extraction ?K08.409 - Partial loss of teeth, unspecified cause, unspecified class (ICD-10) H/O LEEP ?Z98.890 - Other specified postprocedural states (ICD-10) History of endometrial ablation ?Z98.890 - Other specified postprocedural states (ICD-10) S/P cystoscopy ?Z98.890 - Other specified postprocedural states (ICD-10) S/P ureteral stent placement ?Z96.0 - Presence of urogenital implants (ICD-10) H/O ureteroscopy ?Z98.890 - Other specified postprocedural states (ICD-10) History of cholecystectomy ?Z90.49 - Acquired absence of other specified parts of digestive tract (ICD-10) Family History (Updated 03/30/23 @ 10:56 by Natalee Jules) Other Family history of hypertension Social History (Updated 04/24/23 @ 10:12 by Valencia Chavez NP) Within the past year, how often did you have a drink containing alcohol: monthly or less Smoking status: Never smoker Non-prescribed substance use: denies use 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 Blood pressure was elevated at 157/107 General: Nontoxic female, she is lying with her eyes closed on the stretcher, she appears weak but nontoxic, no respiratory distress, no active vomiting Skin: Warm, dry, no pallor noted. There is no rash noted. Head: Normocephalic, atraumatic Eye: Normal conjunctiva, no drainage, EOMI. PERRL, No scleral icterus Ears, Nose, Mouth, and Throat: oral mucosa is moist. Nares patent. Mouth without vesicles. Posterior pharynx Cardiovascular: Regular Rate and Rhythm S1S2, no murmurs, rubs or gallops Breast/chest: approx 4 x 2 cm irregular, firm, mobile mass under left nipple, no skin changes or erythema noted, no axillary adenopathy noted Respiratory: Patient is in no distress, no accessory muscle use, lungs are clear to auscultation, no wheezing, rales or rhonchi Back: non-tender, no CVA tenderness bilaterally to percussion. GI: Normal bowel sounds, no tenderness to palpation, no masses appreciated. No rebound, guarding, or rigidity noted. Musculoskeletal: The patient has no evidence of calf tenderness, no pitting edema, symmetrical pulses noted bilaterally Neurological: A&O x4, normal speech, no gross focal deficits Psychiatric: Cooperative Constitutional Vital Signs, click to edit/add: Last Vital Signs Temp 98.4 F 12/14/23 21:07 Pulse 79 12/15/23 00:20 Resp 16 12/15/23 00:20 BP 133/86 12/14/23 22:28 Pulse Ox 95 12/15/23 00:10 Course Vital Signs Vital signs: Vital Signs Temperature 98.4 F 12/14/23 21:07 Pulse Rate 96 H 12/14/23 21:07 Respiratory Rate 16 12/14/23 21:07 Blood Pressure 157/107 H 12/14/23 21:07 Pulse Oximetry 95 12/14/23 21:07 Temperature 98.4 F 12/14/23 21:07 Pulse Rate 79 12/15/23 00:20 Respiratory Rate 16 12/15/23 00:20 Blood Pressure 133/86 12/14/23 22:28 Pulse Oximetry 95 12/15/23 00:10 Medical Decision Making MDM Narrative Medical decision making narrative: This 33-year-old female status post hysterectomy presents for evaluation of a left breast mass and one day of generally not feeling well with dizziness. Her physical exam was benign. Her is concerned because he states she has been septic in the past. She does not have any specific complaints beside dizziness. She has not passed out. She denies any chest pain or shortness of breath.She does not appear to be septic. Her vital signs are stable. She has a normal EKG. An IV was placed and she was medicated with IV fluids and Tylenol. A workup including CBC with differential, Electrolytes, and lactic acid are ordered. Her labs are normal. Urine is negative for infection. Respiratory panel is negative. she is feeling better after being treated and is ready for discharge. She declined an x-ray. She will be given a requisition for a diagnostic mammogram of the left breast. I encouraged the patient and her to follow-up as soon as possible with Dr. Das and/or her WORD PROCESSOR TECHNICIAN for follow-up after the mammogram. They're in agreement with this plan. Lab Data Labs: Lab Results 12/14/23 12/14/23 12/14/23 Range/Units 22:19 22:22 22:23 WBC 9.1 (4.0-11.0) 10^3/uL RBC 4.85 (4.20-5.40) 10^6/uL Hgb 13.3 (12.0-16.0) g/dL Hct 41.1 (36.0-48.0) % MCV 84.7 (81.0-99.0) fL MCH 27.4 (26.7-34.0) pg MCHC 32.4 (29.9-35.2) g/dL RDW 12.5 (11.0-15.0) % Plt Count 333 (150-450) 10^3/uL MPV 9.5 (9.5-13.5) fL Neut % (Auto) 53.2 (43.0-75.0) % Lymph % (Auto) 35.6 (20.5-60.0) % [place] % (Auto) 8.7 (1.7-12.0) % Eos % (Auto) 1.8 (0.9-7.0) % Baso % (Auto) 0.5 (0.2-2.0) % Neut # (Auto) 4.9 (1.4-6.5) 10^3/uL Lymph # (Auto) 3.3 (1.2-3.8) 10^3/uL [place] # (Auto) 0.8 (0.3-0.8) 10^3/uL Eos # (Auto) 0.2 (0.0-0.7) 10^3/uL Baso # (Auto) 0.1 (0.0-0.1) 10^3/uL Abs Immat Gran (auto) 0.02 (0.00-0.03) 10^3/uL Imm/Tot Granulo (auto) 0.2 (0.0-0.5) % Sodium 140 (136-145) mmol/L Potassium 3.4 L (3.5-5.1) mmol/L Chloride 103 (98-107) mmol/L Carbon Dioxide 27.9 (21.0-32.0) mmol/L Anion Gap 12.5 BUN 7.0 (7.0-18.0) mg/dL Creatinine 0.75 (0.55-1.02) mg/dL Est GFR ( Amer) >60 (>=60) Est GFR (Non-Af Amer) >60 (>=60) BUN/Creatinine Ratio 9.3 Glucose 96 (74-106) mg/dL Lactate 0.8 (0.4-2.0) mmol/L Calcium 8.9 (8.5-10.1) mg/dL Total Bilirubin 0.4 (0.2-1.0) mg/dL AST 31 (15-37) U/L ALT 35 (14-59) U/L Alkaline Phosphatase 82 (46-116) U/L Total Protein 8.0 (6.4-8.2) g/dL Albumin 3.7 (3.4-5.0) g/dL Globulin 4.3 g/dL Albumin/Globulin Ratio 0.9 Urine Color Yellow (YELLOW) Urine Clarity Clear (CLEAR) Urine pH 6.5 (5.0-9.0) Ur Specific [place] 1.025 (1.005-1.025) Urine Protein Trace (NEG/TRACE) mg/dL Urine Glucose (UA) Negative (NEGATIVE) mg/dL Urine Ketones Negative (NEGATIVE) mg/dL Urine Occult Blood Trace-i (NEGATIVE) Urine Nitrite Negative (NEGATIVE) Urine Bilirubin Negative (NEGATIVE) Urine Urobilinogen 1.0 (0.2-1.0) EU/dL Ur Leukocyte Esterase Negative (NEGATIVE) Urine RBC 0-2 (0-2) #/HPF Urine WBC 0-2 A (NONE SEEN) #/HPF Ur Squamous Epith Cells Rare (NONE/RARE) #/LPF Urine Crystals None seen (None Seen) #/HPF Urine Bacteria None seen (NONE SEEN) #/HPF Urine Casts None seen (NONE SEEN) #/LPF Urine Mucus Trace A (NONE SEEN) Adenovirus (PCR) Not detected (NOT DETECTE) C. pneumoniae DNA (PCR) Not detected (NOT DETECTE) Coronavirus Type OC43 Not detected (NOT DETECTE) Coronavirus Type HKU1 Not detected (NOT DETECTE) Coronavirus Type 229E Not detected (NOT DETECTE) Coronavirus Type NL63 Not detected (NOT DETECTE) Human Metapneumovir PCR Not detected (NOT DETECTE) M. pneumoniae (PCR) Not detected (NOT DETECTE) Parainfluenza PCR Not detected (NOT DETECTE) Parainfluenza 2 (PCR) Not detected (NOT DETECTE) Parainfluenza 3 (PCR) Not detected (NOT DETECTE) Parainfluenza 4 (PCR) Not detected (NOT DETECTE) RSV (RT-PCR) Not detected (NOT DETECTE) Entero/Rhino (PCR) Not detected (NOT DETECTE) SARS-CoV-2 (PCR) Not detected (NOT DETECTE) Bordetella pertussis (PCR) Not detected (NOT DETECTE) B parapertussis DNA PCR Not detected (NOT DETECTE) Influenza Type A (PCR) Not detected (NOT DETECTE) Influenza Type B (PCR) Not detected (NOT DETECTE) ECG Data Attestation: I personally reviewed and interpreted this ECG as follows: (Sinus rhythm at 92 beats for minute, normal axis, normal intervals, no acute ST segment elevation or T-wave inversion) Discharge Plan Discharge Chief Complaint: Skin/Abscess/Foreign Body Clinical Impression: Dizziness, Breast mass, left Patient Disposition: Home, Self-Care Time of Disposition Decision: 01:22 Condition: Good Prescriptions / Home Meds: No Action No Known Home Medications Instructions: Dizziness (ED), Breast Mass (ED) Additional Instructions: Call Central scheduling for an appointment for a diagnostic mammogram. Return to the emergency department as needed. Stand Alone Forms: Portal Instructions Referrals: Ignacio Das MD [Primary Care Provider] - 1 week
[2023-12-14 22:28] LABS: Adenovirus NOT DETECTED (NOT DETECTE); Bordetella parapertussis NOT DETECTED (NOT DETECTE); Coronavirus 229E NOT DETECTED (NOT DETECTE); Coronavirus HKU1 NOT DETECTED (NOT DETECTE); Coronavirus NL63 NOT DETECTED (NOT DETECTE); Coronavirus OC43 NOT DETECTED (NOT DETECTE); Human Metapneumovirus NOT DETECTED (NOT DETECTE); Human Rhinovirus/Enterovirus NOT DETECTED (NOT DETECTE); Influenza A NOT DETECTED (NOT DETECTE); Influenza B NOT DETECTED (NOT DETECTE); Mycoplasma pneumoniae NOT DETECTED (NOT DETECTE); Parainfluenza Virus 1 NOT DETECTED (NOT DETECTE); Parainfluenza Virus 2 NOT DETECTED (NOT DETECTE); Parainfluenza Virus 3 NOT DETECTED (NOT DETECTE); Parainfluenza Virus 4 NOT DETECTED (NOT DETECTE); Respiratory Syncytial Virus NOT DETECTED (NOT DETECTE); SARS-CoV-2 NOT DETECTED (NOT DETECTE)
[2023-12-14] MEDS: ACETAMINOPHEN 325 MG TABLET 650 MG PO (22:28)
[2023-12-14] MEDS: 0.9 % SODIUM CHLORIDE 1,000 ML 1000 ML IV (22:28)
[2023-12-14 22:35] LABS: Basophils Absolute Auto 0.1 10^3/uL (0.0-0.1); Basophils Percent Auto 0.5 % (0.2-2.0); Eosinophils Absolute Auto 0.2 10^3/uL (0.0-0.7); Eosinophils Percent Auto 1.8 % (0.9-7.0); Hematocrit 41.1 % (36.0-48.0); Hemoglobin 13.3 g/dL (12.0-16.0); Immature Granulocytes Abs Auto 0.02 10^3/uL (0.00-0.03); Immature Granulocytes Pct Auto 0.2 % (0.0-0.5); Lymphocytes Absolute Auto 3.3 10^3/uL (1.2-3.8); Lymphocytes Percent Auto 35.6 % (20.5-60.0); Mean Corpuscular HGB Conc 32.4 g/dL (29.9-35.2); Mean Corpuscular Hemoglobin 27.4 pg (26.7-34.0); Mean Corpuscular Volume 84.7 fL (81.0-99.0); Mean Platelet Volume 9.5 fL (9.5-13.5); Monocytes Absolute Auto 0.8 10^3/uL (0.3-0.8); Monocytes Percent Auto 8.7 % (1.7-12.0); Neutrophils Absolute Auto 4.9 10^3/uL (1.4-6.5); Neutrophils Percent Auto 53.2 % (43.0-75.0); Platelet Count 333 10^3/uL (150-450); Red Blood Count 4.85 10^6/uL (4.20-5.40); Red Cell Distribution Width 12.5 % (11.0-15.0); White Blood Count 9.1 10^3/uL (4.0-11.0)
[2023-12-14 22:38] LABS: Bilirubin Urine NEGATIVE (NEGATIVE); Blood Urine TRACE-I (NEGATIVE); Clarity Urine CLEAR (CLEAR); Color Urine YELLOW (YELLOW); Glucose Urine UA NEGATIVE (NEGATIVE); Ketones Urine NEGATIVE (NEGATIVE); Leukocyte Esterase Urine NEGATIVE (NEGATIVE); Nitrite Urine NEGATIVE (NEGATIVE); Protein Urine TRACE mg/dL (NEG/TRACE); Specific Gravity Urine 1.025 (1.005-1.025); pH Urine 6.5 (5.0-9.0)
[2023-12-14 22:49] LABS: Bacteria Urine NONE SEEN #/HPF (NONE SEEN); Cast Seen? NONE SEEN #/LPF (NONE SEEN); Crystals Seen? None Seen #/HPF (None Seen); Mucus Urine TRACE (NONE SEEN); RBC Urine 0-2 #/HPF (0-2); Squamous Epithelial Cell Urine RARE #/LPF (NONE/RARE); WBC Urine 0-2 #/HPF (NONE SEEN)
[2023-12-14 22:59] LABS: Lactate/Lactic Acid 0.8 mmol/L (0.4-2.0)
[2023-12-14 23:06] LABS: Alanine Aminotransferase 35 U/L (14-59); Albumin Globulin Ratio 0.9; Albumin Level 3.7 g/dL (3.4-5.0); Alkaline Phosphatase 82 U/L (46-116); Anion Gap 12.5; Aspartate Amino Transferase 31 U/L (15-37); BUN Creatinine Ratio 9.3; Bilirubin Total 0.4 mg/dL (0.2-1.0); Calcium 8.9 mg/dL (8.5-10.1); Carbon Dioxide 27.9 mmol/L (21.0-32.0); Chloride 103 mmol/L (98-107); Estimated GFR (African America >60 (>=60); Estimated GFR (Non-African Ame >60 (>=60); Globulin 4.3 g/dL; Glucose 96 mg/dL (74-106); Potassium 3.4 mmol/L (3.5-5.1); Sodium 140 mmol/L (136-145)
[2023-12-15] VITALS: PULSE 83; RESP 16; O2SAT 96
[2023-12-15 00:10] VITALS: PULSE 83; RESP 15; O2SAT 95
[2023-12-15 00:20] VITALS: PULSE 79; RESP 16
[2023-12-15 01:31] VITALS: BP 99/62; PULSE 88; RESP 16; O2SAT 98
[2023-12-15 01:39] VITALS: BP 125/75; PULSE 65; RESP 18; O2SAT 100
== END 2023-12-15 01:38 | disposition home or self-care (01) ==
PROVIDERS: Emergency Provider Emergency Medicine; PCP Family Medicine
DX: R42 Dizziness and giddiness (principal); N63.20 Unspecified lump in the left breast, unspecified quadrant; Z90.710 Acquired absence of both cervix and uterus; Z87.440 Personal history of urinary (tract) infections; F31.9 Bipolar disorder, unspecified; Z87.442 Personal history of urinary calculi; Z90.49 Acquired absence of other specified parts of digestive tract; Z80.3 Family history of malignant neoplasm of breast
CPT/HCPCS: 0202U; 36415; 80053; 81001; 83605; 85025; 93005; 96360; 99284

== ENCOUNTER 2023-12-23 12:42 | Outpatient (OUT) | payer SELFPAY ==
--- NOTE | 2023-12-23 12:48 | US_ITS ---
Patient Name: CORI BARRIGA MR#: [id number] : 1990 Exam Date: 12/23/2023 Ordering Doctor: VARSHA Chacon . RADIOLOGY REPORT PROCEDURE: MM TOMOSYNTHESIS DIAGNOSTIC BI, 12/23/2023, 12:48 US BREAST LT LIMITED, 12/23/2023, 12:59 COMPARISON: None. INDICATIONS: Mass Of LEft Breast N63.20, Enlarged Lymph Nodes R59.1 Calculator Name NCI Breast Cancer Risk Assessment Tool 5 Year Breast Cancer Risk Not Reported. Lifetime Breast Cancer Risk Not Reported. Personal Breast Cancer No Personal Ovarian Cancer No Treatments None Family Cancers None LOCATION: [facility] BREAST COMPOSITION: Extremely dense, which lowers the sensitivity of mammography. FINDINGS: DIAGNOSTIC CATEGORY 4--SUSPICIOUS FOR MALIGNANCY. FINDING DOES NOT EXHIBIT CLASSIC FINDINGS OF BREAST CANCER: The breasts are medium in size.Scattered benign-appearing calcifications are present. Scattered benign-appearing nodules are present. Scattered benign-appearing lymph nodes are present. Bilateral nipple piercings. RIGHT BREAST: No significant suspicious finding. LEFT BREAST: Focal increased density lower outer quadrant with a 3.3 x 2.8 cm central mass best observed on tomographic images. Ultrasound demonstrates an intraductal heterogeneous mass measuring 2.7 x 2.0 x 1.3 cm with multiple calcifications lobular margins and hypervascularity. The etiology is unknown. Ultrasound-guided core biopsy is recommended to exclude malignancy RECOMMENDATIONS: ULTRASOUND-GUIDED CORE BIOPSY: LEFT BREAST 2.7 cm intraductal mass PLEASE NOTE: A NORMAL MAMMOGRAM DOES NOT EXCLUDE THE POSSIBILITY OF BREAST CANCER. A CLINICALLY SUSPICIOUS PALPABLE LUMP SHOULD BE BIOPSIED. Dictated by: Andrzej Perez MD on 12/23/2023 at 13:42 Approved by: Andzrej Perez MD on 12/23/2023 at 13:46
--- OUTSIDE RECORDS SUMMARY | 2023-12-23 13:06 | XMS_ITS | CCD ---
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 Name Role Phone Phil Aviles Attending UnavailPhil [...] Unavailable HOY ., DR LANE Admitting Unavailable THE COLONY, DR GLEN Alford Consulting Unavailable HOY ., [...] DR LANE Attending Unavailable HOY ., DR DOMINGO Riggins Unavailable VILLA ., DR CASTELLANO Consulting Unavailable PAY ., DR XIAO Consulting Unavailable MARKER ., DR YE Consulting Unavailable KESHIA IRIZARRY Consulting Unavailable GM HERNANDEZ Consulting Unavailable NEVILLE ., DR TOLBERT Admitting Unavailable HOY ., DR LANE Primary Care Unavailable NEVILLE ., DR TOLBERT Attending Unavailable NEVILLE ., DR TOLBERT Consulting Unavailable Nona VILLA Attending Unavailable Nona VILLA Attending Unavailable Nona VILLA Attending Unavailable VILLANona Attending Unavailable CARLOTACELIO Attending Unavailable Medications Current Medications Medication Drug [...] BID, # 30 tab(s), Refills(s) 3, Pharmacy: [facility]/pharmacy #[id number], 168, cm, 03/20/23 10:32:00 EDT, [...] 02-16-2023 Episodic Other aftercare (1 source) Other penitentiary (current) drug therapy; Translations: [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 Nona Villa. Please note our appointment slots fill [...] [facility] [address], [place] [address] [facility] Lab Reportson 06-05-2023 Lab Reports [id number] .00CD:127 [facility] Reminderson 04-24-2023 Reminders - From: Whitney Collier [...] the pt with the results. duplicate message [facility] Operative Reporton Operative Report [id number]. 00CD:127 [facility] RAD - MISCon 04-10-2023 RAD - MISC [id number] .00CD:127 [facility] Lab Reportson 04-06-2023 Lab Reports [id number] .00CD:127 [facility] Lab Reports [id number] .00CD:127 [facility] Lab Reportson 03-23-2023 Lab Reports [id number] .00CD:127 [facility] Lab Reports [id number] .00CD:127 [facility] Lab Reports [id number] .00CD:127 [facility] RAD - CT Reporton 03-23-2023 RAD - CT Report [id number] .00CD:127 [facility] RAD - CT Report [id number] .00CD:127 [facility] Ambulatory Visit Summaryon 0 03-20-2023 Ambulatory Visit Summary NITHYAROSS BoswellDIANA L :1990 Visit Date:03/20/2023 Ambulatory Visit Instructions Your Diagnosis Kidney stone Hypercalciuria History of kidney stones Hyperoxaluria Your Care Team Attending Physician - Nona VILLA MD Primary Care Physician - Domingo [...] Butt When: Where: [facility] [address] [place] [address]- Medications What When Instructions Unchanged olanzapine-samidorpha n [...] handful of b (more content not included)... [facility] Consent for Procedure/Surger yon 03-20-2023 Consent for Procedure/Surgery [id number] .00CD:127 [facility] Patient Educationon 03-20-20 23 Patient Education Nephrology [...] Spinach (cooked), rhubarb, beets, sweet potatoes, and Cuban chard. ? Peanuts. ? Potato chips, vietnamese fries, and baked potatoes with skin on. ? Nuts and nut products. ? Chocolate. ? If you regularly take a diuretic medicine, make sure to eat at least 1 or 2 servings of fruits or vegetables that are high in potassium each day. These include: ? Avocado. ? Banana. ? Crawford, prune, carrot, or tomato juice. ? Baked [...] fish oil, or vitamin B6. ? Take wmox-nak-qvgezze and prescription medicines only as told by your health care provider. These include supplements. What foods should I limit? Limit your in (more content not included)... Normal [facility] Urology Office/Clinic Noteon 03-20-2023 Urology Office/Clinic [...] Lt kidney pain. Did got to the [place] ER. DX'd & treated for UTI. (NEG [...] L. Ox slightly elevated. Pt presented to [facility] ER on 03/06/23 due to L kidney [...] mg qd. SEs discussed. Rx sent to [facility] [place]. -Electrolyte panel 4 weeks to [...] Follow-up With When Contact Information IDALMIS BORDEN, Nona Turner, URL [facility] [address], [place] [address]- Additional Instructions: schedule R ESWL Patient Education [...] kidney s (more content not included)... Normal [facility] Comment on above: Result Comment: Elec tronically Signed By: IDALMIS BORDEN, Nona Turner\.br\Date and Time Signed: 03/20/23 11:30 EDT\.br\Electronically Co-Signed By: Whitney Collier\.br\Date and Time Co-Signed: 03/20/23 11:28 EDT CBC AUTO DIFFon 02-16-2023 BASO # 0.1 103/ul Normal 0.0-0.1 [facility] Comment on above: Performed By: #### U KJ 24 #### [facility] [address] [address] [address] Ramses Dumas Basophils/100 WBC (Bld) 0.5 % Normal 0.2-2.0 [facility] Comment on above: Performed By: #### U KJ 24 #### [facility] [address] [address] [address] Ramses Dumas EO # 0.0 103/ul Normal 0.0-0.7 [facility] Comment on above: Performed By: #### U KJ 24 #### [facility] [address] [address] [address] Ramses Dumas Eosinophils/100 WBC (Bld) 0.4 % Critically low 0.9-7.0 [facility] Comment on above: Performed By: #### U KJ 24 #### [facility] [address] [address] [address] Ramses Dumas Erythrocyte distribution width (RBC) [Ratio] 13.7 % Normal 11.0-15.0 [facility] Comment on above: Performed By: #### U KJ 24 #### [facility] [address] [address] [address] Ramses Dumas Hematocrit (Bld) [Volume fraction] 45.1 % Normal 36.0-48.0 [facility] Comment on above: Performed By: #### U KJ 24 #### [facility] [address] [address] [address] Ramses Dumas Hemoglobin (Bld) [Mass/Vol] 14.3 g/dL Normal 12.0-16.0 [facility] Comment on above: Performed By: #### U KJ 24 #### [facility] [address] [address] [address] Ramses Dumas IG # 0.02 10e3/ul Normal 0.00-0.03 [facility] Comment on above: Performed By: #### U KJ 24 #### [facility] [address] [place] [address] Dr. Ramses Dumas IG % 0.2 % Normal 0.0-0.5 [facility] Comment on above: Performed By: #### U KJ 24 #### [facility] [address] [place] [address] Dr. Ramses Dumas LYMPH # 2.5 103/ul Normal 1.2-3.8 [facility] Comment on above: Performed By: #### U KJ 24 #### [facility] [address] [place] [address] Dr. Ramses Dumas Lymphocytes/100 WBC (Bld) 26.4 % Normal 20.5-60.0 [facility] Comment on above: Performed By: #### U KJ 24 #### [facility] [address] [address] [address] Ramses Dumas MANUAL DIFF REQ NO Normal [facility] Comment on above: Performed By: #### U KJ 24 #### [facility] [address] [place] [address] Dr. Ramses Dumas MCH (RBC) [Entitic mass] 25.6 pg Critically low 26.7-34.0 [facility] Comment on above: Performed By: #### U KJ 24 #### [facility] [address] [place] [address] Dr. Ramses Dumas MCHC (RBC) [Mass/Vol] 31.7 g/dL Normal 29.9-35.2 [facility] Comment on above: Performed By: #### U KJ 24 #### [facility] [address] [address] [address] Ramses Dumas MCV (RBC) [Entitic vol] 80.7 fL Critically low 81.0-99.0 [facility] Comment on above: Performed By: #### U KJ 24 #### [facility] [address] [address] [address] Ramses Dumas MONO # 0.7 103/ul Normal 0.3-0.8 [facility] Comment on above: Performed By: #### U KJ 24 #### [facility] [address] [place] [address] Dr. Ramses Dumas Monocytes/100 WBC (Bld) 7.6 % Normal 1.7-12.0 [facility] Comment on above: Performed By: #### U KJ 24 #### [facility] [address] [place] [address] Dr. Ramses Dumas NEUT # 6.1 103/ul Normal 1.4-6.5 [facility] Comment on above: Performed By: #### U KJ 24 #### [facility] [address] [place] [address] Dr. Ramses Dumas Neutrophils/100 WBC (Bld) 64.9 % Normal 43.0-75.0 [facility] Comment on above: Performed By: #### U KJ 24 #### [facility] [address] [place] [address] Dr. Ramses Dumas Platelet mean volume (Bld) [Entitic vol] 11.0 fL Normal 9.5-13.5 [facility] Comment on above: Performed By: #### U KJ 24 #### [facility] [address] [place] [address] Dr. Ramses Dumas PLT 270 103/ul Normal 150-450 [facility] Comment on above: Performed By: #### U KJ 24 #### [facility] [address] [place] [address] Dr. Ramses Dumas RBC 5.59 106/ul Critically high 4.20-5.40 [facility] Comment on above: Performed By: #### U KJ 24 #### [facility] [address] [place], [place] [address] Dr. Ramses Dumas WBC 9.4 103/ul Normal 4.0-11.0 [facility] Comment on above: Performed By: #### U KJ 24 #### [facility] [address] [place], [place] [address] ABD/PELV W CONon [...] FARTUN NOVOA Date: 2023-02-16 18:21 Normal [facility] URINE PROFILEon 3 Bilirubin Ql (U) SMALL Abnormal NEGATIVE [facility] Comment on above: Performed By: #### C MP #### [facility] [address] [place] [address] Dr. Ramses Dumas Clarity (U) CLEAR Normal CLEAR [facility] Comment on above: Performed By: #### C MP #### [facility] [address] [place] [address] Dr. Ramses Dumas Color (U) YELLOW Normal YELLOW [facility] Comment on above: Performed By: #### C MP #### [facility] [address] [place] [address] Dr. Ramses Dumas ERUCARLOS ENRIQUE A micrscopic examination will be performed if indicated. Normal [facility] Comment on above: Performed By: #### C MP #### [facility] [address] [place] [address] Dr. Ramses Dumas Glucose Ql (U) Negative Normal NEGATIVE [facility] Comment on above: Performed By: #### C MP #### [facility] [address] [place] [address] Dr. Ramses Dumas Hemoglobin Ql (U) Negative Normal NEGATIVE [facility] Comment on above: Performed By: #### C MP #### [facility] [address] [place] [address] Dr. Ramses Dumas Ketones Ql (U) 40 mg/dl Abnormal NEGATIVE [facility] Comment on above: Performed By: #### C MP #### [facility] [address] [place] [address] Dr. Ramses Dumas LEUKOCYTES SMALL Abnormal NEGATIVE [facility] Comment on above: Performed By: #### C MP #### [facility] [address] [place] [address] Dr. Ramses Dumas Nitrite Ql (U) Negative Normal NEGATIVE [facility] Comment on above: Performed By: #### C MP #### [facility] [address] [place] [address] Dr. Ramses Dumas pH (U) 7.0 [pH] Normal 5-9 [facility] Comment on above: Performed By: #### C MP #### [facility] [address] [place] [address] Dr. Ramses Dumas Protein (U) [Mass/Vol] 30 mg/dL Abnormal NEGAT CHRIS/ TRACE [facility] Comment on above: Performed By: #### C MP #### [facility] [address] [place] [address] Dr. Ramses Dumas SPEC GRAVITY 1.020 Normal 1.005-<=1.02 5 [facility] Comment on above: Performed By: #### C MP #### [facility] [address] [place] [address] Dr. Ramses Dumas UR MICRO IND INDICATED Normal [facility] Comment on above: Performed By: #### C MP #### [facility] [address] [place] [address] Dr. Ramses Dumas Urobilinogen Qn (U) 4 {Lucero'U}/dL Abnormal 0.2 - 1.0 [facility] Comment on above: Performed By: #### C MP #### [facility] [address] [place] [address] Dr. Ramses Dumas LIPASEon 02-16-2023 Lipase [Catalytic activity/Vol] 67.0 U/L Critically low 73.0-393.0 [facility] Comment on above: Performed By: #### U RCX #### [facility] [address] [place] [address] Dr. Ramses Dumas LIVER PROFILEon 02-16-2023 Albumin [Mass/Vol] 4.1 g/dL Normal 3.4-5.0 [facility] Comment on above: Performed By: #### U RCX #### [facility] [address] [place] [address] Dr. Ramses Dumas Albumin/Globulin [Mass ratio] 1.0 {ratio} Normal [facility] Comment on above: Performed By: #### U RCX #### [facility] [address] [place] [address] Dr. Ramses Dumas ALP [Catalytic activity/Vol] 85 U/L Normal 46-116 [facility] Comment on above: Performed By: #### U RCX #### [facility] [address] [address] [address] Ramses Dumas ALT [Catalytic activity/Vol] 61 U/L Critically high 14-59 [facility] Comment on above: Performed By: #### U RCX #### [facility] [address] [address] [address] Ramses Dumas AST [Catalytic activity/Vol] 43 U/L Critically high 15-37 [facility] Comment on above: Performed By: #### U RCX #### [facility] [address] [address] [address] Ramses Dumas BILI, CONJUGATED 0.1 mg/dL Normal 0.0-0.2 [facility] Comment on above: Performed By: #### U RCX #### [facility] [address] [address] [address] Ramses Dumas Bilirubin [Mass/Vol] 0.7 mg/dL Normal 0.2-1.0 [facility] Comment on above: Performed By: #### U RCX #### [facility] [address] [address] [address] Ramses Dumas Globulin (S) [Mass/Vol] 4.2 g/dL Normal [facility] Comment on above: Performed By: #### U RCX #### [facility] [address] [address] [address] Ramses Dumas Protein [Mass/Vol] 8.3 g/dL Critically high 6.4-8.2 [facility] Comment on above: Performed By: #### U RCX #### [facility] [address] [address] [address] Ramses Dumas URon 02-16-2023 , QUAL Negative Normal NEGATIVE [facility] Comment on above: Performed By: #### C MP #### [facility] [address] [address] [address] Ramses Dumas PROF CHEM 8 (BAS METB)on Anion gap [Moles/Vol] 14.2 mmol/L Normal [facility] Comment on above: Performed By: #### U RCX #### [facility] [address] [address] [address] Ramses Dumas Calcium [Mass/Vol] 9.5 mg/dL Normal 8.5-10.1 [facility] Comment on above: Performed By: #### U RCX #### [facility] [address] [address] [address] Ramses Dumas Chloride [Moles/Vol] 102 mmol/L Normal 98-107 [facility] Comment on above: Performed By: #### U RCX #### [facility] [address] [address] [address] Ramses Dumas CO2 [Moles/Vol] 27.5 mmol/L Normal 21.0-32.0 [facility] Comment on above: Performed By: #### U RCX #### [facility] [address] [address] [address] Ramses Dumas Creatinine [Mass/Vol] 0.71 mg/dL Normal 0.55-1.02 [facility] Comment on above: Performed By: #### U RCX #### [facility] [address] [address] [address] Ramses Dumas EGFR-AF TAJIK >60 Normal >=60 [facility] Comment on above: Performed By: #### U RCX #### [facility] [address] [address] [address] Ramses Dumas EGFR-NON AF TAJIK >60 Normal >=60 [facility] Comment on above: Performed By: #### U RCX #### [facility] [address] [address] [address] Ramses Dumas Glucose [Mass/Vol] 90 mg/dL Normal 74-106 [facility] Comment on above: Performed By: #### U RCX #### [facility] [address] [address] [address] Ramses Dumas Potassium [Moles/Vol] 3.7 mmol/L Normal 3.5-5.1 [facility] Comment on above: Performed By: #### U RCX #### [facility] [address] [address] [address] Ramses Dumas Sodium [Moles/Vol] 140 mmol/L Normal 136-145 [facility] Comment on above: Performed By: #### U RCX #### [facility] [address] [address] [address] Ramses Dumas Urea nitrogen [Mass/Vol] 6.0 mg/dL Critically low 7.0-18.0 [facility] Comment on above: Performed By: #### U RCX #### [facility] [address] [place] [address] Dr. aRmses Dumas Urea nitrogen/Creatinine [Mass ratio] 8.5 mg/mg Normal [facility] Comment on above: Performed By: #### U RCX #### [facility] [address] [place] [address] Dr. Ramses Dumas URINE MICROSCOPIC ONLYon BACTERIA NONE SEEN Normal NONE SEEN [facility] Comment on above: Performed By: #### U KJ 24 #### [facility] [address] [place] [address] Dr. Ramses Dumas Bacteria identified Cx Nom (U) NOT INDICATED Normal [facility] Comment on above: Performed By: #### U KJ 24 #### [facility] [address] [place] [address] Dr. Ramses Dumas CAST NONE SEEN Normal NONE SEEN [facility] Comment on above: Performed By: #### U KJ 24 #### [facility] [address] [place] [address] Dr. Ramses Dumas Crystals LM Nom (Urine sed) NONE SEEN Normal NONE SEEN [facility] Comment on above: Performed By: #### U KJ 24 #### [facility] [address] [place] [address] Dr. Ramses Dumas Epithelial cells LM Ql (Urine sed) FEW Abnormal NONE SEEN /RARE [facility] Comment on above: Performed By: #### U KJ 24 #### [facility] [address] [place] [address] Dr. Ramses Dumas MUCOUS SMALL Abnormal NONE SEEN [facility] Comment on above: Performed By: #### U KJ 24 #### [facility] [address] [address] [address] Ramses Dumas RBC NONE SEEN Abnormal 0-2 [facility] Comment on above: Performed By: #### U KJ 24 #### [facility] [address] [address] [address] Ramses Dumas WBC 0-2 Abnormal NONE SEEN [facility] Comment on above: Performed By: #### U KJ 24 #### [facility] [address] [place] [address] Dr. Ramses Dumas PAP ACOG PANEL 2: 30 to 65on 02-10-2023 . . Normal [facility] Comment on above: Result Comment: Perf ormed at: WB Performed By: #### U RCX #### [facility] [address] [place] [address] Dr. Ramses Dumas Age Gdln ACOG Testing 30-65 Normal [facility] Comment on above: Performed By: #### U RCX #### [facility] [address] [place] [address] Dr. Ramses Dumas DIAGNOSIS: Comment Normal [facility] Comment on above: Result Comment: NEGA TIVE FOR INTRAEPITHELIAL LESION OR MALIGNANCY. REACTIVE CELLULAR CHANGES AND/OR REPAIR ARE PRESENT. Performed at: WB Performed By: #### U RCX #### [facility] [address] [place] [address] Dr. Ramses Dumas Electronically signed by: Comment Normal [facility] Comment on above: Result Comment: Chelsey Boston MD, Pathologist Performed at: WB Performed By: #### U RCX #### [facility] [address] [place] [address] Dr. Ramses Dumas HPV Aptima Negative Normal Negative [facility] Comment on above: Result Comment: This nucleic acid amplification test detects fourteen high-risk HPV types (16,18,31,33,35,39,45,51,52,56,58,59,66,68) without differentiation. Performed at: =G Performed By: #### U RCX #### [facility] [address] [place] [address] Dr. Ramses Dumas HPV Genotype Reflex Comment Normal [facility] Comment on above: Result Comment: Crit eria not met, HPV Genotype not performed. Performed at: WB Performed By: #### U RCX #### [facility] [address] [place] [address] Dr. Ramses Dumas Methodology: Comment Normal [facility] Comment on above: Result Comment: This liquid based ThinPrep(R) pap test was screened with the use of an image guided system. Performed at: WB Performed By: #### U RCX #### [facility] [address] [address] [address] Ramses Dumas Note: Comment Normal [facility] Comment on above: Result Comment: The [...] WB Performed By: #### U RCX #### [facility] [address] [place] [address] Dr. Ramses Dumas Performed by: Comment Normal [facility] Comment on above: Result Comment: Cuca Briceno, Manager Wound Care (ASCP) Performed at: WB Performed By: #### U RCX #### [facility] [address] [place] [address] Dr. Ramses Dumas Specimen adequacy: Comment Normal [facility] Comment on above: Result Comment: Sati sfactory for evaluation. Endocervical and/or squamous metaplastic cells (endocervical component) are present. Performed at: WB Performed By: #### U RCX #### [facility] [address] [address] [address] Ramses Dumas Lab Reportson 12-29-2022 Lab Reports [id number] .00CD:127 Normal [facility] RAD - MISCon 12-21-2022 RAD - MISC [id number] .00CD:127 Normal [facility] OXALATE 24HR URINEon 023 Oxalates, Urine 44 mg/L Normal Undefined [facility] Comment on above: Performed By: #### U KJ 24 #### [facility] [address] [place] [address] Dr. Ramses Dumas Oxalates, Urine 24hr 44 mg/24 hr Critically high 4-31 [facility] Comment on above: Performed By: #### U KJ 24 #### [facility] [address] [place] [address] Dr. Ramses Dumas CITRATE URINE 24HRon 023 Citric Acid, U, 24hr 658 mg/24 hr Normal 320-1240 Th [facility] Comment on above: Result Comment: This test was developed and its performance characteristics determined by [facility]. It has not been cleared or approved by the Food and Drug Administration. Performed By: #### C ITRATU #### [facility] [address] [place] [address] Dr. Ramses Dumas Citric Acid, Urine 658 mg/L Normal Undefined [facility] Comment on above: Performed By: #### C ITRATU #### [facility] [address] [place] [address] Dr. Ramses Dumas MAGNESIUM 24HR URINEon 12-17 Magnesium 24hr Urine 119.0 mg/24 hr Normal 12.0-293.0 [facility] Comment on above: Performed By: #### U RCX #### [facility] [address] [place] [address] Dr. Ramses Dumas Magnesium UR 11.9 mg/dL Normal Not Estab. [facility] Comment on above: Performed By: #### U RCX #### [facility] [address] [place], [place] [id number] Dr. Ramses Dumas PHOSPHORUS 24HR URINEon Phosphorus, Urine 81.4 mg/dL Normal Not Estab. [facility] Comment on above: Performed By: #### B LDCX2 #### [facility] [address] [place] [address] Dr. Ramses Dumas Phosphorus, Urine 24hr 814 mg/24 hr Normal 261-1078 [facility] Comment on above: Performed By: #### B LDCX2 #### [facility] [address] [place] [address] Dr. Ramses Dumas PTH INTACTon 12-17-2022 PTH, Intact 46 pg/mL Normal 15-65 [facility] Comment on above: Performed By: #### U RCX #### [facility] [address] [place] [address] Dr. Ramses Dumas URIC ACID 24 HR URINEon Uric Acid, Urine 69.9 mg/dL Normal Not Estab. [facility] Comment on above: Performed By: #### U KJ 24 #### [facility] [address] [place] [address] Dr. Ramses Dumas Uric Acid, Urine 24hr 699.0 mg/24 hr Normal 173.7-902. 1 [facility] Comment on above: Performed By: #### U KJ 24 #### [facility] [address] [place] [address] Dr. Ramses Dumas BUNon 12-16-2022 Urea nitrogen [Mass/Vol] 7.0 mg/dL Normal 7.0-18.0 [facility] Comment on above: Performed By: #### C BC #### [facility] [address] [place] [address] Dr. Ramses Dumas CALCIUMon 12-16-2022 Calcium [Mass/Vol] 8.8 mg/dL Normal 8.5-10.1 [facility] Comment on above: Performed By: #### C BC #### [facility] [address] [place] [address] Dr. Ramses Dumas CALCIUM 24 HR URINEon 2022 CALC, 24 HR UR 295.0 mg/24 hr Normal 100.0-300.0 [facility] Comment on above: Performed By: #### B [id number] #### [facility] [address] [place] [address] Dr. Ramses Dumas UR CALCIUM 29.5 mg/dL Critically high 5.1-21.0 [facility] Comment on above: Performed By: #### B LDCX2 #### [facility] [address] [place] [address] Dr. Ramses Dumas CHLORIDEon 12-16-2022 Chloride [Moles/Vol] 105 mmol/L Normal 98-107 [facility] Comment on above: Performed By: #### C BC #### [facility] [address] [place] [address] Dr. Ramses Dumas CO2on 12-16-2022 CO2 [Moles/Vol] 26.4 mmol/L Normal 21.0-32.0 [facility] Comment on above: Performed By: #### C MP #### [facility] [address] [place] [address] Dr. Ramses Dumas CREA 24 HR URINEon 3 CREA, 24 HR UR 2337.30 mg/24 hr Critically high 800.00 -1,800 .00 [facility] Comment on above: Performed By: #### C VDTBH #### [facility] [address] [place] [address] Dr. Ramses Dumas URINE CREAT 233.73 mg/dL Normal 20.00-300.00 [facility] Comment on above: Performed By: #### C VDTBH #### [facility] [address] [place] [address] Dr. Ramses Dumas CREATININEon 12-16-2022 Creatinine [Mass/Vol] 0.70 mg/dL Normal 0.55-1.02 [facility] Comment on above: Performed By: #### C MP #### [facility] [address] [place] [address] Dr. Ramses Dumas EGFR-AF TAJIK >60 Normal >=60 [facility] Comment on above: Performed By: #### C MP #### [facility] [address] [place] [address] Dr. Ramses Dumas EGFR-NON AF TAJIK >60 Normal >=60 [facility] Comment on above: Performed By: #### C MP #### [facility] [address] [place] [address] Dr. Ramses Dumas NAon 12-16-2022 Sodium [Moles/Vol] 139 mmol/L Normal 136-145 [facility] Comment on above: Performed By: #### C MP #### [facility] [address] [place] [address] Dr. Ramses Dumas POTASSIUMon 12-16-2022 Potassium [Moles/Vol] 4.0 mmol/L Normal 3.5-5.1 [facility] Comment on above: Performed By: #### C MP #### [facility] [address] [place] [address] Dr. Ramses Dumas SODIUM 24 HR URINEon 023 NA, 24 HR UR 193 mmol/24 hr Normal 40-220 [facility] Comment on above: Performed By: #### C VDTBH #### [facility] [address] [place] [address] Dr. Ramses Dumas Sodium (U) [Moles/Vol] 193 mmol/L Critically high 30-90 [facility] Comment on above: Performed By: #### C VDTBH #### [facility] [address] [place] [address] Dr. Ramses Dumas UR TOT VOL 1000 ml/24 HR Normal [facility] Comment on above: Performed By: #### C VDTBH #### [facility] [address] [place] [address] Dr. Ramses Dumas Performed By: #### B [id number] #### [facility] [address] [place] [address] Dr. Ramses Dumas URIC ACID SERUMon 12-16-2022 Urate [Mass/Vol] 5.6 mg/dL Normal 2.6-6.0 [facility] Comment on above: Performed By: #### C MP #### [facility] [address] [place] [address] Dr. Ramses Dumas XR KUB 1 VIEWon [...] JENNIFER GATES Date: 2022-12-15 08:26 Normal [facility] CBC AUTO DIFFon 11-07-2022 BASO # 0.0 103/ul Normal 0.0-0.1 [facility] Comment on above: Performed By: #### U RCX #### [facility] [address] [place] [address] Dr. Ramses Dumas Basophils/100 WBC (Bld) 0.7 % Normal 0.2-2.0 [facility] Comment on above: Performed By: #### U RCX #### [facility] [address] [place] [address] Dr. Ramses Dumas EO # 0.1 103/ul Normal 0.0-0.7 [facility] Comment on above: Performed By: #### U RCX #### [facility] [address] [place] [address] Dr. Ramses Dumas Eosinophils/100 WBC (Bld) 1.9 % Normal 0.9-7.0 [facility] Comment on above: Performed By: #### U RCX #### [facility] [address] [place] [address] Dr. Ramses Dumas Erythrocyte distribution width (RBC) [Ratio] 13.6 % Normal 11.0-15.0 [facility] Comment on above: Performed By: #### U RCX #### [facility] [address] [place] [address] Dr. Ramses Dumas Hematocrit (Bld) [Volume fraction] 37.3 % Normal 36.0-48.0 [facility] Comment on above: Performed By: #### U RCX #### [facility] [address] [place] [address] Dr. Ramses Dumas Hemoglobin (Bld) [Mass/Vol] 12.2 g/dL Normal 12.0-16.0 [facility] Comment on above: Performed By: #### U RCX #### [facility] [address] [place] [address] Dr. Ramses Dumas IG # 0.02 10e3/ul Normal 0.00-0.03 [facility] Comment on above: Performed By: #### U RCX #### [facility] [address] [place] [address] Dr. Ramses Dumas IG % 0.3 % Normal 0.0-0.5 [facility] Comment on above: Performed By: #### U RCX #### [facility] [address] [place] [address] Dr. Ramses Dumas LYMPH # 2.3 103/ul Normal 1.2-3.8 [facility] Comment on above: Performed By: #### U RCX #### [facility] [address] [place] [address] Dr. Ramses Dumas Lymphocytes/100 WBC (Bld) 39.6 % Normal 20.5-60.0 [facility] Comment on above: Performed By: #### U RCX #### [facility] [address] [place] [address] Dr. Ramses Dmuas MANUAL DIFF REQ NO Normal [facility] Comment on above: Performed By: #### U RCX #### [facility] [address] [place] [address] Dr. Ramses Dumas MCH (RBC) [Entitic mass] 26.4 pg Critically low 26.7-34.0 [facility] Comment on above: Performed By: #### U RCX #### [facility] [address] [place] [address] Dr. Ramses Dumas MCHC (RBC) [Mass/Vol] 32.7 g/dL Normal 29.9-35.2 [facility] Comment on above: Performed By: #### U RCX #### [facility] [address] [place] [address] Dr. Ramses Dumas MCV (RBC) [Entitic vol] 80.7 fL Critically low 81.0-99.0 [facility] Comment on above: Performed By: #### U RCX #### [facility] [address] [place] [address] Dr. Ramses Dumas MONO # 0.5 103/ul Normal 0.3-0.8 [facility] Comment on above: Performed By: #### U RCX #### [facility] [address] [place] [address] Dr. Ramses Dumas Monocytes/100 WBC (Bld) 8.0 % Normal 1.7-12.0 [facility] Comment on above: Performed By: #### U RCX #### [facility] [address] [place] [address] Dr. Ramses Dumas NEUT # 2.9 103/ul Normal 1.4-6.5 [facility] Comment on above: Performed By: #### U RCX #### [facility] [address] [place] [address] Dr. Ramses Dumas Neutrophils/100 WBC (Bld) 49.5 % Normal 43.0-75.0 [facility] Comment on above: Performed By: #### U RCX #### [facility] [address] [place] [address] Dr. Ramses Dumas Platelet mean volume (Bld) [Entitic vol] 9.0 fL Critically low 9.5-13.5 [facility] Comment on above: Performed By: #### U RCX #### [facility] [address] [place] [address] Dr. Ramses Dumas PLT 337 103/ul Normal 150-450 [facility] Comment on above: Performed By: #### U RCX #### [facility] [address] [place] [address] Dr. Ramses Dumas RBC 4.62 106/ul Normal 4.20-5.40 [facility] Comment on above: Performed By: #### U RCX #### [facility] [address] [place] [address] Dr. Ramses Dumas WBC 5.9 103/ul Normal 4.0-11.0 [facility] Comment on above: Performed By: #### U RCX #### [facility] [address] [place] [address] Dr. Ramses Dumas POINT OF CARE GLUCOSEon 10-20 Glucose [Mass/Vol] 115 mg/dL Critically high 74-106 [facility] Comment on above: Performed By: #### C VDTBH #### [facility] [address] [place] [address] Dr. Ramses Dumas PREG QUANT HCGon 11-07-2022 HCG QUANT <1 Normal [facility] Comment on above: Performed By: #### C VDTBH #### [facility] [address] [place] [address] Dr. Ramses Dumas HCG RANGE SEE BELOW Normal [facility] Comment on above: Result Comment: 5-50 0.2-1 WEEK 50-500 1-2 WEEKS 100-5,000 2-3 WEEKS 500-10,000 3-4 WEEKS 1,000-50,000 4-5 WEEKS 10,000-100,000 5-6 WEEKS 15,000-200,000 6-8 WEEKS 10,000-100,000 2-3 MONTHS Performed By: #### C VDTBH #### [facility] [address] [place] [address] Dr. Ramses Dumas US PELVIS AND TRANSVAGon [...] cm right ovarian simple cyst Normal [facility] CBC AUTO DIFFon 11-03-2022 BASO # 0.1 103/ul Normal 0.0-0.1 [facility] Comment on above: Performed By: #### U RCX #### [facility] [address] [place] [address] Dr. Ramses Dumas Basophils/100 WBC (Bld) 0.8 % Normal 0.2-2.0 [facility] Comment on above: Performed By: #### U RCX #### [facility] [address] [place] [address] Dr. Ramses Dumas EO # 0.1 103/ul Normal 0.0-0.7 [facility] Comment on above: Performed By: #### U RCX #### [facility] [address] [place] [address] Dr. Ramses Dumas Eosinophils/100 WBC (Bld) 1.4 % Normal 0.9-7.0 [facility] Comment on above: Performed By: #### U RCX #### [facility] [address] [place] [address] Dr. Ramses Dumas Erythrocyte distribution width (RBC) [Ratio] 13.4 % Normal 11.0-15.0 [facility] Comment on above: Performed By: #### U RCX #### [facility] [address] [place] [address] Dr. Ramses Dumas Hematocrit (Bld) [Volume fraction] 38.8 % Normal 36.0-48.0 [facility] Comment on above: Performed By: #### U RCX #### [facility] [address] [place] [address] Dr. Ramses Dumas Hemoglobin (Bld) [Mass/Vol] 12.7 g/dL Normal 12.0-16.0 [facility] Comment on above: Performed By: #### U RCX #### [facility] [address] [place] [address] Dr. Ramses Dumas IG # 0.01 10e3/ul Normal 0.00-0.03 [facility] Comment on above: Performed By: #### U RCX #### [facility] [address] [place] [address] Dr. Ramses Dumas IG % 0.1 % Normal 0.0-0.5 [facility] Comment on above: Performed By: #### U RCX #### [facility] [address] [place] [address] Dr. Ramses Dumas LYMPH # 1.9 103/ul Normal 1.2-3.8 [facility] Comment on above: Performed By: #### U RCX #### [facility] [address] [place] [address] Dr. Ramses Dumas Lymphocytes/100 WBC (Bld) 26.4 % Normal 20.5-60.0 [facility] Comment on above: Performed By: #### U RCX #### [facility] [address] [place] [address] Dr. Ramses Dumas MANUAL DIFF REQ NO Normal [facility] Comment on above: Performed By: #### U RCX #### [facility] [address] [place] [address] Dr. Ramses Dumas MCH (RBC) [Entitic mass] 26.3 pg Critically low 26.7-34.0 [facility] Comment on above: Performed By: #### U RCX #### [facility] [address] [place] [address] Dr. Ramses Dumas MCHC (RBC) [Mass/Vol] 32.7 g/dL Normal 29.9-35.2 [facility] Comment on above: Performed By: #### U RCX #### [facility] [address] [place] [address] Dr. Ramses Dumas MCV (RBC) [Entitic vol] 80.5 fL Critically low 81.0-99.0 [facility] Comment on above: Performed By: #### U RCX #### [facility] [address] [place] [address] Dr. Ramses Dumas MONO # 0.6 103/ul Normal 0.3-0.8 [facility] Comment on above: Performed By: #### U RCX #### [facility] [address] [place] [address] Dr. Ramses Dumas Monocytes/100 WBC (Bld) 8.2 % Normal 1.7-12.0 [facility] Comment on above: Performed By: #### U RCX #### [facility] [address] [place] [address] Dr. Ramses Dumas NEUT # 4.5 103/ul Normal 1.4-6.5 [facility] Comment on above: Performed By: #### U RCX #### [facility] [address] [place] [address] Dr. Ramses Dumas Neutrophils/100 WBC (Bld) 63.1 % Normal 43.0-75.0 [facility] Comment on above: Performed By: #### U RCX #### [facility] [address] [place] [address] Dr. Ramses Dumas Platelet mean volume (Bld) [Entitic vol] 8.9 fL Critically low 9.5-13.5 [facility] Comment on above: Performed By: #### U RCX #### [facility] [address] [place] [address] Dr. Ramses Dumas PLT 340 103/ul Normal 150-450 [facility] Comment on above: Performed By: #### U RCX #### [facility] [address] [place] [address] Dr. Ramses Dumas RBC 4.82 106/ul Normal 4.20-5.40 [facility] Comment on above: Performed By: #### U RCX #### [facility] [address] [place] [address] Dr. Ramses Dumas WBC 7.1 103/ul Normal 4.0-11.0 [facility] Comment on above: Performed By: #### U RCX #### [facility] [address] [place] [address] Dr. Ramses Dumas Covid-19 PCR ([facility])on 10-19 SARS-CoV-2 (COVID-19) RNA FRANCESCA+probe Ql (Unsp spec) Not detected Normal NOT DETECTED [facility] Comment on above: Result Comment: This test is not yet approved or cleared by the [place] FDA. When there are no FDA-approved or cleared tests available, and other criteria are met, FDA can make tests available under an emergency access mechanism called an Emergency Use Authorization (EUA). The EUA for this test is supported by the [place] of Health and Human Service's (HHS's) declaration [...] SARS-CoV-2. Performed By: #### U RCX #### [facility] [address] [place] [address] Dr. Ramses Dumas FREE T4on 11-03-2022 Free T4 [Mass/Vol] 0.99 ng/dL Normal 0.76-1.46 [facility] Comment on above: Performed By: #### B LDCX2 #### [facility] [address] [place] [address] Dr. Ramses Dumas GLYCOHEMOGLOBIN A1Con 2022 ADA RECOMMENDATION SEE BELOW Normal [facility] Comment on above: Result Comment: ADA RECOMMENDED LIMIT 4.0 - 6.0 ADA THERAPEUTIC TARGET < 7.0 ACTION SUGGESTED > 7.0 Performed By: #### C VDTBH #### [facility] [address] [place] [address] Dr. Ramses Dumas Glucose [Mass/Vol] 117 mg/dL Normal [facility] Comment on above: Performed By: #### C VDTBH #### [facility] [address] [place] [address] Dr. Ramses Dumas HbA1c (Bld) [Mass fraction] 5.7 % Normal 4.5-6.2 [facility] Comment on above: Performed By: #### C VDTBH #### [facility] [address] [place] [address] Dr. Ramses Dumas PROTIMEon 11-03-2022 INR Coag (PPP) [Relative time] 0.97 {INR} Normal [facility] Comment on above: Performed By: #### U KJ 24 #### [facility] [address] [place] [address] Dr. Ramses Dumas INR GUIDELINES SEE BELOW Normal [facility] Comment on above: Result Comment: TOÑA RED INR: 2.0 - 3.0 CONDITIONS NOT LISTED BELOW 2.5 - 3.5 FOR PROSTHETIC HEART VALVE REPLACEMENT 2.5 - 3.5 RECURRENT THROMBOSIS Performed By: #### U KJ 24 #### [facility] [address] [place] [address] Dr. Ramses Dumas PT Coag (PPP) [Time] 10.3 s Normal 9.0-11.6 [facility] Comment on above: Performed By: #### U KJ 24 #### [facility] [address] [place] [address] Dr. Ramses Dumas PTTon 11-03-2022 aPTT Coag (Bld) [Time] 27.7 s Normal 22.3-36.2 [facility] Comment on above: Performed By: #### U KJ 24 #### [facility] [address] [place] [address] Dr. Ramses Dumas TSHon 11-03-2022 TSH 0.667 uIU/mL Normal 0.358-3.740 [facility] Comment on above: Performed By: #### C VDTBH #### [facility] [address] [place] [address] Dr. Ramses Dumas PREG HCG QUALon 09-18-2022 , QUAL Negative Normal NEGATIVE [facility] Comment on above: Performed By: #### U KJ 24 #### [facility] [address] [place] [address] Dr. Ramses Dumas Covid-19 PCR ([facility])on 08-20 SARS-CoV-2 (COVID-19) RNA FRANCESCA+probe Ql (Unsp spec) Not detected Normal NOT DETECTED [facility] Comment on above: Result Comment: This test is not yet approved or cleared by the [place] FDA. When there are no FDA-approved or cleared tests available, and other criteria are met, FDA can make tests available under an emergency access mechanism called an Emergency Use Authorization (EUA). The EUA for this test is supported by the [place] [employer] of Health and Human Service's (HHS's) declaration [...] SARS-CoV-2. Performed By: #### C VDTBH #### [facility] [address] [place] [address] Dr. Ramses Dumas CBC AUTO DIFFon 09-05-2022 BASO # 0.1 103/ul Normal 0.0-0.1 [facility] Comment on above: Performed By: #### B LDCX2 #### [facility] [address] [place] [address] Dr. Ramses Dumas Basophils/100 WBC (Bld) 0.7 % Normal 0.2-2.0 [facility] Comment on above: Performed By: #### B LDCX2 #### [facility] [address] [place] [address] Dr. Ramses Dumas EO # 0.2 103/ul Normal 0.0-0.7 [facility] Comment on above: Performed By: #### B LDCX2 #### [facility] [address] [place] [address] Dr. Rasmes Dumas Eosinophils/100 WBC (Bld) 2.2 % Normal 0.9-7.0 [facility] Comment on above: Performed By: #### B LDCX2 #### [facility] [address] [place] [address] Dr. Ramses Dumas Erythrocyte distribution width (RBC) [Ratio] 13.9 % Normal 11.0-15.0 [facility] Comment on above: Performed By: #### B LDCX2 #### [facility] [address] [place] [address] Dr. Ramses Dumas Hematocrit (Bld) [Volume fraction] 38.8 % Normal 36.0-48.0 [facility] Comment on above: Performed By: #### B LDCX2 #### [facility] [address] [place] [address] Dr. Ramses Dumas Hemoglobin (Bld) [Mass/Vol] 12.6 g/dL Normal 12.0-16.0 [facility] Comment on above: Performed By: #### B LDCX2 #### [facility] [address] [place] [address] Dr. Ramses Dumas IG # 0.03 10e3/ul Normal 0.00-0.03 [facility] Comment on above: Performed By: #### B LDCX2 #### [facility] [address] [place] [address] Dr. Ramses Dumas IG % 0.3 % Normal 0.0-0.5 [facility] Comment on above: Performed By: #### B LDCX2 #### [facility] [address] [place] [address] Dr. Ramses Dumas LYMPH # 2.3 103/ul Normal 1.2-3.8 [facility] Comment on above: Performed By: #### B LDCX2 #### [facility] [address] [place] [address] Dr. Ramses Dumas Lymphocytes/100 WBC (Bld) 21.3 % Normal 20.5-60.0 [facility] Comment on above: Performed By: #### B LDCX2 #### [facility] [address] [place] [address] Dr. Ramses Dumas MANUAL DIFF REQ NO Normal [facility] Comment on above: Performed By: #### B LDCX2 #### [facility] [address] [place] [address] Dr. Ramses Dumas MCH (RBC) [Entitic mass] 26.4 pg Critically low 26.7-34.0 [facility] Comment on above: Performed By: #### B LDCX2 #### [facility] [address] [place] [address] Dr. Ramses Dumas MCHC (RBC) [Mass/Vol] 32.5 g/dL Normal 29.9-35.2 [facility] Comment on above: Performed By: #### B LDCX2 #### [facility] [address] [place] [address] Dr. Ramses Dumas MCV (RBC) [Entitic vol] 81.2 fL Normal 81.0-99.0 [facility] Comment on above: Performed By: #### B LDCX2 #### [facility] [address] [place] [address] Dr. Ramses Dumas MONO # 0.8 103/ul Normal 0.3-0.8 [facility] Comment on above: Performed By: #### B LDCX2 #### [facility] [address] [place] [address] Dr. Ramses Dumas Monocytes/100 WBC (Bld) 7.4 % Normal 1.7-12.0 [facility] Comment on above: Performed By: #### B LDCX2 #### [facility] [address] [place] [address] Dr. Ramses Dumas NEUT # 7.3 103/ul Critically high 1.4-6.5 [facility] Comment on above: Performed By: #### B LDCX2 #### [facility] [address] [place] [address] Dr. Ramses Dumas Neutrophils/100 WBC (Bld) 68.1 % Normal 43.0-75.0 [facility] Comment on above: Performed By: #### B LDCX2 #### [facility] [address] [place] [address] Dr. Ramses Dumas Platelet mean volume (Bld) [Entitic vol] 8.8 fL Critically low 9.5-13.5 [facility] Comment on above: Performed By: #### B LDCX2 #### [facility] [address] [place] [address] Dr. Ramses Dumas PLT 323 103/ul Normal 150-450 [facility] Comment on above: Performed By: #### B LDCX2 #### [facility] [address] [place] [address] Dr. Ramses Dumas RBC 4.78 106/ul Normal 4.20-5.40 [facility] Comment on above: Performed By: #### B LDCX2 #### [facility] [address] [place] [address] Dr. Ramses Dumas WBC 10.7 103/ul Normal 4.0-11.0 [facility] Comment on above: Performed By: #### B LDCX2 #### [facility] [address] [place] [address] Dr. Ramses Dumas CULTURE URINEon 09-05-2022 CULTURE URINE Culture Observations : LIGHT GROWTH OF MIXED GENITAL DAIANA. NO POTENTIAL PATHOGENS SEEN. Normal [facility] Comment on above: Performed By: #### U RCX #### [facility] [address] [place] [address] Dr. Ramses Dumas ER URINE PROFILEon 2 Bilirubin Ql (U) Negative Normal NEGATIVE [facility] Comment on above: Performed By: #### B LDCX2 #### [facility] [address] [place] [address] Dr. Ramses Dumas Clarity (U) CLOUDY Abnormal CLEAR [facility] Comment on above: Performed By: #### B LDCX2 #### [facility] [address] [place] [address] Dr. Ramses Dumas Color (U) YELLOW Normal YELLOW [facility] Comment on above: Performed By: #### B LDCX2 #### [facility] [address] [place] [address] Dr. Ramses Dumas ERUAHD A micrscopic examination will be performed if indicated. Normal [facility] Comment on above: Performed By: #### B LDCX2 #### [facility] [address] [place] [address] Dr. Ramses Dumas Glucose Ql (U) Negative Normal NEGATIVE [facility] Comment on above: Performed By: #### B LDCX2 #### [facility] [address] [place] [address] Dr. Ramses Dumas Hemoglobin Ql (U) LARGE Abnormal NEGATIVE [facility] Comment on above: Performed By: #### B [id number] #### [facility] [address] [place] [address] Dr. Ramses Dumas Ketones Ql (U) Negative Normal NEGATIVE [facility] Comment on above: Performed By: #### B [id number] #### [facility] [address] [place] [address] Dr. Ramses Dumas LEUKOCYTES SMALL Abnormal NEGATIVE [facility] Comment on above: Performed By: #### B [id number] #### [facility] [address] [place] [address] Dr. Ramses Dumas Nitrite Ql (U) Negative Normal NEGATIVE [facility] Comment on above: Performed By: #### B [id number] #### [facility] [address] [place] [address] Dr. Ramses Dumas pH (U) 6.0 [pH] Normal 5-9 [facility] Comment on above: Performed By: #### B [id number] #### [facility] [address] [place] [address] Dr. Ramses Dumas Protein (U) [Mass/Vol] 100 mg/dL Abnormal NEGAT CHRIS/ TRACE [facility] Comment on above: Performed By: #### B [id number] #### [facility] [address] [place] [address] Dr. Ramses Dumas SPEC GRAVITY >=1.030 Abnormal 1.005-<=1.02 5 [facility] Comment on above: Performed By: #### B [id number] #### [facility] [address] [place] [address] Dr. Ramses Dumas UR MICRO IND INDICATED Normal [facility] Comment on above: Performed By: #### B [id number] #### [facility] [address] [place] [address] Dr. Ramses Dumas Urobilinogen Qn (U) 0.2 {Lucero'U}/dL Normal 0.2 - 1. 0 [facility] Comment on above: Performed By: #### B [id number] #### [facility] [address] [place] [address] Dr. Ramses Dumas URon 09-05-2022 , QUAL Negative Normal NEGATIVE [facility] Comment on above: Performed By: #### B [id number] #### [facility] [address] [place] [address] Dr. Ramses Dumas PROF CHEM 8 (BAS METB)on Anion gap [Moles/Vol] 11.7 mmol/L Normal [facility] Comment on above: Performed By: #### C MP #### [facility] [address] [place] [address] Dr. Ramses Dumas Calcium [Mass/Vol] 9.1 mg/dL Normal 8.5-10.1 [facility] Comment on above: Performed By: #### C MP #### [facility] [address] [place] [address] Dr. Ramses Dumas Chloride [Moles/Vol] 103 mmol/L Normal 98-107 [facility] Comment on above: Performed By: #### C MP #### [facility] [address] [place] [address] Dr. Ramses Dumas CO2 [Moles/Vol] 25.9 mmol/L Normal 21.0-32.0 [facility] Comment on above: Performed By: #### C MP #### [facility] [address] [place] [address] Dr. Ramses Dumas Creatinine [Mass/Vol] 0.77 mg/dL Normal 0.55-1.02 [facility] Comment on above: Performed By: #### C MP #### [facility] [address] [place] [address] Dr. Ramses Dumas EGFR-AF TAJIK >60 Normal >=60 [facility] Comment on above: Performed By: #### C MP #### [facility] [address] [place] [address] Dr. Ramses Dumas EGFR-NON AF TAJIK >60 Normal >=60 [facility] Comment on above: Performed By: #### C MP #### [facility] [address] [address] [address] Ramses Dumas Glucose [Mass/Vol] 124 mg/dL Critically high 74-106 [facility] Comment on above: Performed By: #### C MP #### [facility] [address] [place] [address] Dr. Ramses Dumas Potassium [Moles/Vol] 3.6 mmol/L Normal 3.5-5.1 [facility] Comment on above: Performed By: #### C MP #### [facility] [address] [place] [address] Dr. Ramses Dumas Sodium [Moles/Vol] 137 mmol/L Normal 136-145 [facility] Comment on above: Performed By: #### C MP #### [facility] [address] [place] [address] Dr. Ramses Dumas Urea nitrogen [Mass/Vol] 12.0 mg/dL Normal 7.0-18.0 [facility] Comment on above: Performed By: #### C MP #### [facility] [address] [place] [address] Dr. Ramses Dumas Urea nitrogen/Creatinine [Mass ratio] 15.6 mg/mg Normal [facility] Comment on above: Performed By: #### C MP #### [facility] [address] [place] [address] Dr. Ramses Dumas URINE MICROSCOPIC ONLYon AMORPHOUS CRYSTALS RARE Normal [facility] Comment on above: Performed By: #### B [id number] #### [facility] [address] [place] [address] Dr. Ramses Dumas BACTERIA TRACE Abnormal NONE SEEN [facility] Comment on above: Performed By: #### B [id number] #### [facility] [address] [place] [address] Dr. Ramses Dumas Bacteria identified Cx Nom (U) INDICATED Normal [facility] Comment on above: Performed By: #### B [id number] #### [facility] [address] [place] [address] Dr. Ramses Dumas CA OX CRYSTALS RARE Normal [facility] Comment on above: Performed By: #### B [id number] #### [facility] [address] [place] [address] Dr. Ramses Dumas CAST NONE SEEN Normal NONE SEEN [facility] Comment on above: Performed By: #### B [id number] #### [facility] [address] [place] [address] Dr. Ramses Dumas Crystals LM Nom (Urine sed) SEEN Abnormal NONE SEEN [facility] Comment on above: Performed By: #### B LDCX2 #### [facility] [address] [place] [address] Dr. Ramses Dumas Epithelial cells LM Ql (Urine sed) FEW Abnormal NONE SEEN /RARE [facility] Comment on above: Performed By: #### B LDCX2 #### [facility] [address] [place] [address] Dr. Ramses Dumas MUCOUS TRACE Abnormal NONE SEEN [facility] Comment on above: Performed By: #### B LDCX2 #### [facility] [address] [place] [address] Dr. Ramses Dumas RBC 50-75 Abnormal 0-2 [facility] Comment on above: Performed By: #### B [id number] #### [facility] [address] [place] [address] Dr. Ramses Dumas WBC 20-50 Abnormal NONE SEEN [facility] Comment on above: Performed By: #### B LDCX2 #### [facility] [address] [place] [address] Dr. Ramses Dumas YEAST PRESENT Abnormal NONE SEEN [facility] Comment on above: Performed By: #### B [id number] #### [facility] [address] [place] [address] Dr. Ramses Dumas US KIDNEYSon 09-05-2022 US [...] by: GLEN GRAFF Date: 2022-09-05 11:00 Normal [facility] CT ABD/PELVIS WO CONon 08-29 CT [...] ERICKA IGLESIAS Date: 2022-08-29 01:10 Normal [facility] CULTURE URINEon 08-29-2022 CULTURE URINE Culture Observations : LIGHT GROWTH OF MIXED GENITAL DAIANA. NO POTENTIAL PATHOGENS SEEN. Normal [facility] Comment on above: Performed By: #### U RCX #### [facility] [address] [place] [address] Dr. Ramses Dumas CBC AUTO DIFFon 08-28-2022 BASO # 0.1 103/ul Normal 0.0-0.1 [facility] Comment on above: Performed By: #### U RCX #### [facility] [address] [place] [address] Dr. Ramses Dumas Basophils/100 WBC (Bld) 0.5 % Normal 0.2-2.0 [facility] Comment on above: Performed By: #### U RCX #### [facility] [address] [place] [address] Dr. Ramses Dumas EO # 0.3 103/ul Normal 0.0-0.7 [facility] Comment on above: Performed By: #### U RCX #### [facility] [address] [place] [address] Dr. Ramses Dumas Eosinophils/100 WBC (Bld) 2.3 % Normal 0.9-7.0 [facility] Comment on above: Performed By: #### U RCX #### [facility] [address] [place] [address] Dr. Ramses Dumas Erythrocyte distribution width (RBC) [Ratio] 13.7 % Normal 11.0-15.0 [facility] Comment on above: Performed By: #### U RCX #### [facility] [address] [place] [address] Dr. Ramses Dumas Hematocrit (Bld) [Volume fraction] 36.7 % Normal 36.0-48.0 [facility] Comment on above: Performed By: #### U RCX #### [facility] [address] [place] [address] Dr. Ramses Dumas Hemoglobin (Bld) [Mass/Vol] 12.3 g/dL Normal 12.0-16.0 [facility] Comment on above: Performed By: #### U RCX #### [facility] [address] [place] [address] Dr. Ramses Dumas IG # 0.16 10e3/ul Critically high 0.00-0.03 [facility] Comment on above: Performed By: #### U RCX #### [facility] [address] [place] [address] Dr. Ramses Dumas IG % 1.1 % Critically high 0.0-0.5 [facility] Comment on above: Performed By: #### U RCX #### [facility] [address] [place] [address] Dr. Ramses Dumas LYMPH # 4.6 103/ul Critically high 1.2-3.8 [facility] Comment on above: Performed By: #### U RCX #### [facility] [address] [place] [address] Dr. Ramses Dumas Lymphocytes/100 WBC (Bld) 31.8 % Normal 20.5-60.0 [facility] Comment on above: Performed By: #### U RCX #### [facility] [address] [place] [address] Dr. Ramses Dumas MANUAL DIFF REQ NO Normal [facility] Comment on above: Performed By: #### U RCX #### [facility] [address] [place] [address] Dr. Ramses Dumas MCH (RBC) [Entitic mass] 26.9 pg Normal 26.7-34.0 [facility] Comment on above: Performed By: #### U RCX #### [facility] [address] [place] [address] Dr. Ramses Dumas MCHC (RBC) [Mass/Vol] 33.5 g/dL Normal 29.9-35.2 [facility] Comment on above: Performed By: #### U RCX #### [facility] [address] [place] [address] Dr. Ramses Dumas MCV (RBC) [Entitic vol] 80.3 fL Critically low 81.0-99.0 [facility] Comment on above: Performed By: #### U RCX #### [facility] [address] [place] [address] Dr. Ramses Dumas MONO # 1.0 103/ul Critically high 0.3-0.8 [facility] Comment on above: Performed By: #### U RCX #### [facility] [address] [place] [address] Dr. Ramses Dumas Monocytes/100 WBC (Bld) 7.0 % Normal 1.7-12.0 [facility] Comment on above: Performed By: #### U RCX #### [facility] [address] [place] [address] Dr. Ramses Dumas NEUT # 8.2 103/ul Critically high 1.4-6.5 [facility] Comment on above: Performed By: #### U RCX #### [facility] [address] [place] [address] Dr. Ramses Dumas Neutrophils/100 WBC (Bld) 57.3 % Normal 43.0-75.0 [facility] Comment on above: Performed By: #### U RCX #### [facility] [address] [place] [address] Dr. Ramses Dumas Platelet mean volume (Bld) [Entitic vol] 8.6 fL Critically low 9.5-13.5 [facility] Comment on above: Performed By: #### U RCX #### [facility] [address] [place] [address] Dr. Ramses Dumas PLT 395 103/ul Normal 150-450 [facility] Comment on above: Performed By: #### U RCX #### [facility] [address] [place] [address] Dr. Ramses Dumas RBC 4.57 106/ul Normal 4.20-5.40 [facility] Comment on above: Performed By: #### U RCX #### [facility] [address] [place] [address] Dr. Ramses Dumas WBC 14.3 103/ul Critically high 4.0-11.0 [facility] Comment on above: Performed By: #### U RCX #### [facility] [address] [place] [address] Dr. Ramses Dumas ER URINE PROFILEon 2 Bilirubin Ql (U) Negative Normal NEGATIVE [facility] Comment on above: Performed By: #### U KJ 24 #### [facility] [address] [place] [address] Dr. Ramses Dumas Clarity (U) CLEAR Normal CLEAR [facility] Comment on above: Performed By: #### U KJ 24 #### [facility] [address] [place] [address] Dr. Ramses Dumas Color (U) LT. YELLOW Normal YELLOW [facility] Comment on above: Performed By: #### U KJ 24 #### [facility] [address] [place] [address] Dr. Ramses Dumas ERUWalter A micrscopic examination will be performed if indicated. Normal [facility] Comment on above: Performed By: #### U KJ 24 #### [facility] [address] [place] [address] Dr. Ramses Dumas Glucose Ql (U) Negative Normal NEGATIVE [facility] Comment on above: Performed By: #### U KJ 24 #### [facility] [address] [place] [address] Dr. Ramses Dumas Hemoglobin Ql (U) LARGE Abnormal NEGATIVE [facility] Comment on above: Performed By: #### U KJ 24 #### [facility] [address] [place] [address] Dr. Ramses Dumas Ketones Ql (U) Negative Normal NEGATIVE [facility] Comment on above: Performed By: #### U KJ 24 #### [facility] [address] [place] [address] Dr. Ramses Dumas LEUKOCYTES MODERATE Abnormal NEGATIVE [facility] Comment on above: Performed By: #### U KJ 24 #### [facility] [address] [place] [address] Dr. Ramses Dumas Nitrite Ql (U) Negative Normal NEGATIVE [facility] Comment on above: Performed By: #### U KJ 24 #### [facility] [address] [place] [address] Dr. Ramses Dumas pH (U) 6.5 [pH] Normal 5-9 [facility] Comment on above: Performed By: #### U KJ 24 #### [facility] [address] [place] [address] Dr. Ramses Dumas Protein (U) [Mass/Vol] 100 mg/dL Abnormal NEGAT CHRIS/ TRACE [facility] Comment on above: Performed By: #### U KJ 24 #### [facility] [address] [place] [address] Dr. Ramses Dumas SPEC GRAVITY 1.020 Normal 1.005-<=1.02 5 [facility] Comment on above: Performed By: #### U KJ 24 #### [facility] [address] [place] [address] Dr. Ramses Dumas UR MICRO IND INDICATED Normal [facility] Comment on above: Performed By: #### U KJ 24 #### [facility] [address] [place] [address] Dr. Ramses Dumas Urobilinogen Qn (U) 0.2 {Lucero'U}/dL Normal 0.2 - 1. 0 [facility] Comment on above: Performed By: #### U KJ 24 #### [facility] [address] [place] [address] Dr. Ramses Dumas PROF 14(COMP METB)on 022 Albumin [Mass/Vol] 3.3 g/dL Critically low 3.4-5.0 [facility] Comment on above: Performed By: #### C MP #### [facility] [address] [place] [address] Dr. Ramses Dumas Albumin/Globulin [Mass ratio] 0.8 {ratio} Normal [facility] Comment on above: Performed By: #### C MP #### [facility] [address] [address] [address] Ramses Dumas ALP [Catalytic activity/Vol] 108 U/L Normal 46-116 [facility] Comment on above: Performed By: #### C MP #### [facility] [address] [address] [address] Ramses Dumas ALT [Catalytic activity/Vol] 103 U/L Critically high 14-59 [facility] Comment on above: Performed By: #### C MP #### [facility] [address] [address] [address] Ramses Dumas Anion gap [Moles/Vol] 6.6 mmol/L Normal [facility] Comment on above: Performed By: #### C MP #### [facility] [address] [address] [address] Ramses Dumas AST [Catalytic activity/Vol] 21 U/L Normal 15-37 [facility] Comment on above: Performed By: #### C MP #### [facility] [address] [place] [address] Dr. Ramses Dumas Bilirubin [Mass/Vol] 0.2 mg/dL Normal 0.2-1.0 [facility] Comment on above: Performed By: #### C MP #### [facility] [address] [address] [address] Ramses Dumas Calcium [Mass/Vol] 9.2 mg/dL Normal 8.5-10.1 [facility] Comment on above: Performed By: #### C MP #### [facility] [address] [place] [address] Dr. Ramses Dumas Chloride [Moles/Vol] 102 mmol/L Normal 98-107 [facility] Comment on above: Performed By: #### C MP #### [facility] [address] [address] [address] Ramses Dumas CO2 [Moles/Vol] 28.8 mmol/L Normal 21.0-32.0 [facility] Comment on above: Performed By: #### C MP #### [facility] [address] [place] [address] Dr. Ramses Dumas Creatinine [Mass/Vol] 0.92 mg/dL Normal 0.55-1.02 [facility] Comment on above: Performed By: #### C MP #### [facility] [address] [place] [address] Dr. Ramses Dumas EGFR-AF TAJIK >60 Normal >=60 [facility] Comment on above: Performed By: #### C MP #### [facility] [address] [address] [address] Ramses Dumas EGFR-NON AF TAJIK >60 Normal >=60 [facility] Comment on above: Performed By: #### C MP #### [facility] [address] [place] [address] Dr. Ramses Dumas Globulin (S) [Mass/Vol] 4.1 g/dL Normal [facility] Comment on above: Performed By: #### C MP #### [facility] [address] [address] [address] Ramses Dumas Glucose [Mass/Vol] 114 mg/dL Critically high 74-106 [facility] Comment on above: Performed By: #### C MP #### [facility] [address] [place] [address] Dr. Ramses Dumas Potassium [Moles/Vol] 3.4 mmol/L Critically low 3.5-5.1 [facility] Comment on above: Performed By: #### C MP #### [facility] [address] [place] [address] Dr. Ramses Dumas Protein [Mass/Vol] 7.4 g/dL Normal 6.4-8.2 [facility] Comment on above: Performed By: #### C MP #### [facility] [address] [place] [address] Dr. Ramses Dumas Sodium [Moles/Vol] 134 mmol/L Critically low 136-145 [facility] Comment on above: Performed By: #### C MP #### [facility] [address] [place] [address] Dr. Ramses Dumas Urea nitrogen [Mass/Vol] 11.0 mg/dL Normal 7.0-18.0 [facility] Comment on above: Performed By: #### C MP #### [facility] [address] [place] [address] Dr. Ramses Dumas Urea nitrogen/Creatinine [Mass ratio] 12.0 mg/mg Normal [facility] Comment on above: Performed By: #### C MP #### [facility] [address] [place] [address] Dr. Ramses Dumas URINE MICROSCOPIC ONLYon BACTERIA MODERATE Abnormal NONE SEEN [facility] Comment on above: Performed By: #### U KJ 24 #### [facility] [address] [place] [address] Dr. Ramses Dumas Bacteria identified Cx Nom (U) INDICATED Normal [facility] Comment on above: Performed By: #### U KJ 24 #### [facility] [address] [place] [address] Dr. Ramses Dumas CAST NONE SEEN Normal NONE SEEN [facility] Comment on above: Performed By: #### U KJ 24 #### [facility] [address] [place] [address] Dr. Ramses Dumas Crystals LM Nom (Urine sed) NONE SEEN Normal NONE SEEN [facility] Comment on above: Performed By: #### U KJ 24 #### [facility] [address] [place] [address] Dr. Ramses Dumas Epithelial cells LM Ql (Urine sed) RARE Normal NONE SEEN /RARE [facility] Comment on above: Performed By: #### U KJ 24 #### [facility] [address] [place] [address] Dr. Ramses Dumas MUCOUS NONE SEEN Normal NONE SEEN [facility] Comment on above: Performed By: #### U KJ 24 #### [facility] [address] [place] [address] Dr. Ramses Dumas RBC 20-50 Abnormal 0-2 [facility] Comment on above: Performed By: #### U KJ 24 #### [facility] [address] [place] [address] Dr. Ramses Dumas WBC 5-10 Abnormal NONE SEEN [facility] Comment on above: Performed By: #### U KJ 24 #### [facility] [address] [address] [address] Ramses Dumas CULTURE BLOODon 08-25-2022 Microscopic [...] S F Tetracycline >=16 R F Normal [facility] Comment on above: Performed By: #### B LDCX2 #### [facility] [address] [place] [address] Dr. Ramses Dumas Microscopic examination of blood, [...] F Tetracycline >=16 R F Normal [facility] Comment on above: Performed By: #### C BC #### [facility] [address] [place] [address] Dr. Ramses Dumas CBC AUTO DIFFon 08-24-2022 BASO # 0.0 103/ul Normal 0.0-0.1 [facility] Comment on above: Performed By: #### C BC #### [facility] [address] [address] [address] Ramses Dumas Basophils/100 WBC (Bld) 0.1 % Critically low 0.2-2.0 [facility] Comment on above: Performed By: #### C BC #### [facility] [address] [place] [address] Dr. Ramses Dumas EO # 0.0 103/ul Normal 0.0-0.7 [facility] Comment on above: Performed By: #### C BC #### [facility] [address] [place] [address] Dr. Ramses Dumas Eosinophils/100 WBC (Bld) 0.0 % Critically low 0.9-7.0 [facility] Comment on above: Performed By: #### C BC #### [facility] [address] [place] [address] Dr. Ramses Dumas Erythrocyte distribution width (RBC) [Ratio] 13.5 % Normal 11.0-15.0 [facility] Comment on above: Performed By: #### C BC #### [facility] [address] [place] [address] Dr. Ramses Dumas Hematocrit (Bld) [Volume fraction] 33.0 % Critically low 36.0-48.0 [facility] Comment on above: Performed By: #### C BC #### [facility] [address] [place] [address] Dr. Ramses Dumas Hemoglobin (Bld) [Mass/Vol] 10.7 g/dL Critically low 12.0-16.0 [facility] Comment on above: Performed By: #### C BC #### [facility] [address] [place] [address] Dr. Ramses Dumas IG # 0.04 10e3/ul Critically high 0.00-0.03 [facility] Comment on above: Performed By: #### C BC #### [facility] [address] [place] [address] Dr. Ramses Dumas IG % 0.4 % Normal 0.0-0.5 [facility] Comment on above: Performed By: #### C BC #### [facility] [address] [address] [address] Ramses Dumas LYMPH # 0.8 103/ul Critically low 1.2-3.8 [facility] Comment on above: Performed By: #### C BC #### [facility] [address] [address] [address] Ramses Dumas Lymphocytes/100 WBC (Bld) 7.9 % Critically low 20.5-60.0 [facility] Comment on above: Performed By: #### C BC #### [facility] [address] [place] [address] Dr. Ramses Dumas MANUAL DIFF REQ NO Normal [facility] Comment on above: Performed By: #### C BC #### [facility] [address] [place] [address] Dr. Ramses Dumas MCH (RBC) [Entitic mass] 26.5 pg Critically low 26.7-34.0 [facility] Comment on above: Performed By: #### C BC #### [facility] [address] [place] [address] Dr. Ramses Dumas MCHC (RBC) [Mass/Vol] 32.4 g/dL Normal 29.9-35.2 [facility] Comment on above: Performed By: #### C BC #### [facility] [address] [place] [address] Dr. Ramses Dumas MCV (RBC) [Entitic vol] 81.7 fL Normal 81.0-99.0 [facility] Comment on above: Performed By: #### C BC #### [facility] [address] [place] [address] Dr. Ramses Dumas MONO # 0.6 103/ul Normal 0.3-0.8 [facility] Comment on above: Performed By: #### C BC #### [facility] [address] [place] [address] Dr. Ramses Dmuas Monocytes/100 WBC (Bld) 6.3 % Normal 1.7-12.0 [facility] Comment on above: Performed By: #### C BC #### [facility] [address] [id number] Ramses Dumas NEUT # 8.6 103/ul Critically high 1.4-6.5 [facility] Comment on above: Performed By: #### C BC #### [facility] [id number] Ramses Dumas Neutrophils/100 WBC (Bld) 85.3 % Critically high 43.0-75.0 [facility] Comment on above: Performed By: #### C BC #### [facility] [address] [address] [address] Ramses Dumas Platelet mean volume (Bld) [Entitic vol] 9.1 fL Critically low 9.5-13.5 [facility] Comment on above: Performed By: #### C BC #### [facility] [id number] Ramses Dumas PLT 248 103/ul Normal 150-450 [facility] Comment on above: Performed By: #### C BC #### [facility] [address] [address] [address] Ramses Dumas RBC 4.04 106/ul Critically low 4.20-5.40 [facility] Comment on above: Performed By: #### C BC #### [facility] [id number] Ramses Dumas WBC 10.1 103/ul Normal 4.0-11.0 [facility] Comment on above: Performed By: #### C BC #### [facility] [address] [place] [address] Dr. Ramses Dumas CULTURE URINEon 08-24-2022 CULTURE [...] S F Tetracycline >=16 R F Normal [facility] Comment on above: Performed By: #### U RCX #### [facility] [address] [place] [address] Dr. Ramses Dumas PROF 14(COMP METB)on 022 Albumin [Mass/Vol] 2.4 g/dL Critically low 3.4-5.0 [facility] Comment on above: Performed By: #### C VDTBH #### [facility] [address] [place] [address] Dr. Ramses Dumas Albumin/Globulin [Mass ratio] 0.7 {ratio} Normal [facility] Comment on above: Performed By: #### C VDTBH #### [facility] [address] [place] [address] Dr. Ramses Dumas ALP [Catalytic activity/Vol] 95 U/L Normal 46-116 [facility] Comment on above: Performed By: #### C VDTBH #### [facility] [address] [place] [address] Dr. Ramses Dumas ALT [Catalytic activity/Vol] 327 U/L Critically high 14-59 [facility] Comment on above: Performed By: #### C VDTBH #### [facility] [address] [place] [address] Dr. Ramses Dumas Anion gap [Moles/Vol] 8.7 mmol/L Normal [facility] Comment on above: Performed By: #### C VDTBH #### [facility] [address] [place] [address] Dr. Ramses Dumas AST [Catalytic activity/Vol] 165 U/L Critically high 15-37 [facility] Comment on above: Performed By: #### C VDTBH #### [facility] [address] [place] [address] Dr. Ramses Dumas Bilirubin [Mass/Vol] 0.4 mg/dL Normal 0.2-1.0 [facility] Comment on above: Performed By: #### C VDTBH #### [facility] [address] [address] [address] Ramses Dumas Calcium [Mass/Vol] 8.0 mg/dL Critically low 8.5-10.1 Th [facility] Comment on above: Performed By: #### C VDTBH #### [facility] [address] [place] [address] Dr. Ramses Dumas Chloride [Moles/Vol] 108 mmol/L Critically high 98-107 [facility] Comment on above: Performed By: #### C VDTBH #### [facility] [address] [place] [address] Dr. Ramses Dumas CO2 [Moles/Vol] 25.3 mmol/L Normal 21.0-32.0 [facility] Comment on above: Performed By: #### C VDTBH #### [facility] [address] [place] [address] Dr. Ramses Dumas Creatinine [Mass/Vol] 0.70 mg/dL Normal 0.55-1.02 [facility] Comment on above: Performed By: #### C VDTBH #### [facility] [address] [place] [address] Dr. Ramses Dumas EGFR-AF TAJIK >60 Normal >=60 [facility] Comment on above: Performed By: #### C VDTBH #### [facility] [address] [place] [address] Dr. Ramses Dumas EGFR-NON AF TAJIK >60 Normal >=60 [facility] Comment on above: Performed By: #### C VDTBH #### [facility] [address] [place] [address] Dr. Ramses Dumas Globulin (S) [Mass/Vol] 3.6 g/dL Normal [facility] Comment on above: Performed By: #### C VDTBH #### [facility] [address] [place] [address] Dr. Ramses Dumas Glucose [Mass/Vol] 160 mg/dL Critically high 74-106 [facility] Comment on above: Performed By: #### C VDTBH #### [facility] [address] [place] [address] Dr. Ramses Dumas Potassium [Moles/Vol] 4.0 mmol/L Normal 3.5-5.1 [facility] Comment on above: Performed By: #### C VDTBH #### [facility] [address] [place] [address] Dr. Ramses Dumas Protein [Mass/Vol] 6.0 g/dL Critically low 6.4-8.2 Th [facility] Comment on above: Performed By: #### C VDTBH #### [facility] [address] [place] [address] Dr. Ramses Dumas Sodium [Moles/Vol] 138 mmol/L Normal 136-145 [facility] Comment on above: Performed By: #### C VDTBH #### [facility] [address] [place] [address] Dr. Ramses Dumas Urea nitrogen [Mass/Vol] 6.0 mg/dL Critically low 7.0-18.0 [facility] Comment on above: Performed By: #### C VDTBH #### [facility] [address] [place] [address] Dr. Ramses Dumas Urea nitrogen/Creatinine [Mass ratio] 8.6 mg/mg Normal [facility] Comment on above: Performed By: #### C VDTBH #### [facility] [address] [place] [address] Dr. Ramses Dumas CBC AUTO DIFFon 08-23-2022 BASO # 0.0 103/ul Normal 0.0-0.1 [facility] Comment on above: Performed By: #### U RCX #### [facility] [address] [place] [address] Dr. Ramses Dumas Basophils/100 WBC (Bld) 0.2 % Normal 0.2-2.0 [facility] Comment on above: Performed By: #### U RCX #### [facility] [address] [place] [address] Dr. Ramses Dumas EO # 0.0 103/ul Normal 0.0-0.7 [facility] Comment on above: Performed By: #### U RCX #### [facility] [address] [address] [address] Ramses Dumas Eosinophils/100 WBC (Bld) 0.1 % Critically low 0.9-7.0 [facility] Comment on above: Performed By: #### U RCX #### [facility] [address] [place] [address] Dr. Ramses Dumas Erythrocyte distribution width (RBC) [Ratio] 13.4 % Normal 11.0-15.0 [facility] Comment on above: Performed By: #### U RCX #### [facility] [address] [place] [address] Dr. Ramses Dumas Hematocrit (Bld) [Volume fraction] 34.1 % Critically low 36.0-48.0 [facility] Comment on above: Performed By: #### U RCX #### [facility] [address] [place] [address] Dr. Ramses Dumas Hemoglobin (Bld) [Mass/Vol] 10.9 g/dL Critically low 12.0-16.0 [facility] Comment on above: Performed By: #### U RCX #### [facility] [address] [place] [address] Dr. Ramses Dumas IG # 0.02 10e3/ul Normal 0.00-0.03 [facility] Comment on above: Performed By: #### U RCX #### [facility] [address] [place] [address] Dr. Ramses Dumas IG % 0.2 % Normal 0.0-0.5 [facility] Comment on above: Performed By: #### U RCX #### [facility] [address] [place] [address] Dr. Ramses Dumas LYMPH # 0.7 103/ul Critically low 1.2-3.8 [facility] Comment on above: Performed By: #### U RCX #### [facility] [address] [place] [address] Dr. Ramses Dumas Lymphocytes/100 WBC (Bld) 6.9 % Critically low 20.5-60.0 [facility] Comment on above: Performed By: #### U RCX #### [facility] [address] [address] [address] Ramses Dumas MANUAL DIFF REQ NO Normal [facility] Comment on above: Performed By: #### U RCX #### [facility] [address] [place] [address] Dr. Ramses Dumas MCH (RBC) [Entitic mass] 26.1 pg Critically low 26.7-34.0 [facility] Comment on above: Performed By: #### U RCX #### [facility] [address] [place] [address] Dr. Ramses Dumas MCHC (RBC) [Mass/Vol] 32.0 g/dL Normal 29.9-35.2 [facility] Comment on above: Performed By: #### U RCX #### [facility] [address] [place] [address] Dr. Ramses Dumas MCV (RBC) [Entitic vol] 81.8 fL Normal 81.0-99.0 [facility] Comment on above: Performed By: #### U RCX #### [facility] [address] [place] [address] Dr. Ramses Dumas MONO # 0.6 103/ul Normal 0.3-0.8 [facility] Comment on above: Performed By: #### U RCX #### [facility] [address] [place] [address] Dr. Ramses Dumas Monocytes/100 WBC (Bld) 5.9 % Normal 1.7-12.0 [facility] Comment on above: Performed By: #### U RCX #### [facility] [address] [place] [address] Dr. Ramses Dumas NEUT # 8.2 103/ul Critically high 1.4-6.5 [facility] Comment on above: Performed By: #### U RCX #### [facility] [address] [place] [address] Dr. Ramses Dumas Neutrophils/100 WBC (Bld) 86.7 % Critically high 43.0-75.0 [facility] Comment on above: Performed By: #### U RCX #### [facility] [address] [address] [address] Ramses Dumas Platelet mean volume (Bld) [Entitic vol] 9.4 fL Critically low 9.5-13.5 [facility] Comment on above: Performed By: #### U RCX #### [facility] [address] [address] [address] Ramses Dumas PLT 235 103/ul Normal 150-450 [facility] Comment on above: Performed By: #### U RCX #### [facility] [address] [address] [address] Ramses Dumas RBC 4.17 106/ul Critically low 4.20-5.40 [facility] Comment on above: Performed By: #### U RCX #### [facility] [address] [place] [address] Dr. Ramses Dumas WBC 9.5 103/ul Normal 4.0-11.0 [facility] Comment on above: Performed By: #### U RCX #### [facility] [address] [place] [address] Dr. Ramses Dumas PROF 14(COMP METB)on 022 Albumin [Mass/Vol] 2.6 g/dL Critically low 3.4-5.0 [facility] Comment on above: Performed By: #### U KJ 24 #### [facility] [address] [place] [address] Dr. Ramses Dumas Albumin/Globulin [Mass ratio] 0.8 {ratio} Normal [facility] Comment on above: Performed By: #### U KJ 24 #### [facility] [address] [address] [address] Ramses Dumas ALP [Catalytic activity/Vol] 82 U/L Normal 46-116 [facility] Comment on above: Performed By: #### U KJ 24 #### [facility] [address] [place] [address] Dr. Ramses Dumas ALT [Catalytic activity/Vol] 257 U/L Critically high 14-59 [facility] Comment on above: Performed By: #### U KJ 24 #### [facility] [address] [address] [address] Ramses Dumas Anion gap [Moles/Vol] 10.3 mmol/L Normal [facility] Comment on above: Performed By: #### U KJ 24 #### [facility] [address] [address] [address] Ramses Dumas AST [Catalytic activity/Vol] 196 U/L Critically high 15-37 [facility] Comment on above: Performed By: #### U KJ 24 #### [facility] [address] [address] [address] Ramses Dumas Bilirubin [Mass/Vol] 0.5 mg/dL Normal 0.2-1.0 [facility] Comment on above: Performed By: #### U KJ 24 #### [facility] [address] [place] [address] Dr. Ramses Dumas Calcium [Mass/Vol] 7.8 mg/dL Critically low 8.5-10.1 [facility] Comment on above: Performed By: #### U KJ 24 #### [facility] [address] [place] [address] Dr. Ramses Dumas Chloride [Moles/Vol] 104 mmol/L Normal 98-107 [facility] Comment on above: Performed By: #### U KJ 24 #### [facility] [address] [place] [address] Dr. Ramses Dumas CO2 [Moles/Vol] 24.4 mmol/L Normal 21.0-32.0 [facility] Comment on above: Performed By: #### U KJ 24 #### [facility] [address] [place] [address] Dr. Ramses Dumas Creatinine [Mass/Vol] 1.09 mg/dL Critically high 0.55-1.02 [facility] Comment on above: Performed By: #### U KJ 24 #### [facility] [address] [address] [address] Ramses Dumas EGFR-AF TAJIK >60 Normal >=60 [facility] Comment on above: Performed By: #### U KJ 24 #### [facility] [address] [address] [address] Ramses Dumas EGFR-NON AF TAJIK 59 mL/min/1.73m2 Critically low >=60 [facility] Comment on above: Performed By: #### U KJ 24 #### [facility] [address] [address] [address] Ramses Dumas Globulin (S) [Mass/Vol] 3.3 g/dL Normal [facility] Comment on above: Performed By: #### U KJ 24 #### [facility] [address] [address] [address] Ramses Dumas Glucose [Mass/Vol] 143 mg/dL Critically high 74-106 [facility] Comment on above: Performed By: #### U KJ 24 #### [facility] [address] [address] [address] Ramses Dumas Potassium [Moles/Vol] 3.7 mmol/L Normal 3.5-5.1 [facility] Comment on above: Performed By: #### U KJ 24 #### [facility] [address] [address] [address] Ramses Dumas Protein [Mass/Vol] 5.9 g/dL Critically low 6.4-8.2 [facility] Comment on above: Performed By: #### U KJ 24 #### [facility] [address] [place] [address] Dr. Ramses Dumas Sodium [Moles/Vol] 135 mmol/L Critically low 136-145 [facility] Comment on above: Performed By: #### U KJ 24 #### [facility] [address] [address] [address] Ramses Dumas Urea nitrogen [Mass/Vol] 10.0 mg/dL Normal 7.0-18.0 [facility] Comment on above: Performed By: #### U KJ 24 #### [facility] [address] [address] [address] Ramses Dumas Urea nitrogen/Creatinine [Mass ratio] 9.2 mg/mg [facility] Comment on above: Performed By: #### U KJ 24 #### [facility] [address] [place] [address] Dr. Ramses Dumas BLOOD CULTURE ID PANELon A. baumannii Not detected Normal NOT DETECTED [facility] Comment on above: Performed By: #### C VDTBH #### [facility] [address] [place] [address] Dr. Ramses Dumas Bacteriodes fragilis Not detected Normal NOT DETECTED [facility] Comment on above: Performed By: #### C VDTBH #### [facility] [address] [place] [address] Dr. Ramses SHEPPARDD CONTROLS PASSED Normal [facility] Comment on above: Performed By: #### C VDTBH #### [facility] [address] [place] [address] Dr. Ramses SHEPPARDDBTHD BLOOD CULTURE BOTTLE INFORMATION Normal [facility] Comment on above: Performed By: #### C VDTBH #### [facility] [address] [place] [address] Dr. Ramses SHEPPARDDHD1 ANTIMICROBIAL RESISTANCE GENES Normal [facility] Comment on above: Performed By: #### C VDTBH #### [facility] [address] [place] [address] Dr. Ramses SHEPPARDDHD2 SEE BELOW Normal [facility] Comment on above: Result Comment: Note : Antimicrobial resitance can occur via multiple mechanisms. A Not Detected result for the [employer] antomicrobial resistance gene assays does not indicate antimicrobial susceptibility. Subculturing is required for species identification and susceptibility testing of isolates. Performed By: #### C VDTBH #### [facility] [address] [place] [address] Dr. Ramses SHEPPARDDHD3 Positive Normal [facility] Comment on above: Performed By: #### C VDTBH #### [facility] [address] [place] [address] Dr. Ramses SHEPPARDDHD4 Negative Normal [facility] Comment on above: Performed By: #### C VDTBH #### [facility] [address] [place] [address] Dr. Ramses SHEPPARDDHD5 YEAST Normal [facility] Comment on above: Performed By: #### C VDTBH #### [facility] [address] [place] [address] Dr. Ramses Garcia Set: Set 1 Normal [facility] Comment on above: Performed By: #### C VDTBH #### [facility] [address] [place] [address] Dr. Ramses Dumas Bottle: Pediatric Normal [facility] Comment on above: Performed By: #### C VDTBH #### [facility] [address] [place] [address] Dr. Ramses Dumas C. neoformans/gattii Not detected Normal NOT DETECTED [facility] Comment on above: Performed By: #### C VDTBH #### [facility] [address] [place] [address] Dr. Ramses Dumas Kim albicans Not detected Normal NOT DETECTED [facility] Comment on above: Performed By: #### C VDTBH #### [facility] [address] [place] [address] Dr. Ramses Dumas Kim auris Not detected Normal NOT DETECTED [facility] Comment on above: Performed By: #### C VDTBH #### [facility] [address] [place] [address] Dr. Ramses Dumas Kim glabrata Not detected Normal NOT DETECTED [facility] Comment on above: Performed By: #### C VDTBH #### [facility] [address] [place] [address] Dr. Ramses Dumas Kim Krusei Not detected Normal NOT DETECTED [facility] Comment on above: Performed By: #### C VDTBH #### [facility] [address] [place] [address] Dr. Ramses Dumas Kim Parapsilosis Not detected Normal NOT DETECTED [facility] Comment on above: Performed By: #### C VDTBH #### [facility] [address] [place] [address] Dr. Ramses Dumas Kim Tropicalis Not detected Normal NOT DETECTED [facility] Comment on above: Performed By: #### C VDTBH #### [facility] [address] [place] [address] Dr. Ramses Dumas CTX-M Resistant Gene Not Applicable Normal NOT DETECTE D [facility] Comment on above: Performed By: #### C VDTBH #### [facility] [address] [place] [address] Dr. Ramses Dumas E. Cloacae complex Not detected Normal NOT DETECTED [facility] Comment on above: Performed By: #### C VDTBH #### [facility] [address] [place] [address] Dr. Ramses Dumas E. faecalis Not detected Normal NOT DETECTED [facility] Comment on above: Performed By: #### C VDTBH #### [facility] [address] [place] [address] Dr. Ramses Dumas E. faecium Not detected Normal NOT DETECTED [facility] Comment on above: Performed By: #### C VDTBH #### [facility] [address] [place] [address] Dr. Ramses Dumas Enterobacteriaceae Not detected Normal NOT DETECTED [facility] Comment on above: Performed By: #### C VDTBH #### [facility] [address] [place] [address] Dr. Ramses Dumas Escherichia coli Not detected Normal NOT DETECTED [facility] Comment on above: Performed By: #### C VDTBH #### [facility] [address] [place] [address] Dr. Ramses Dumas H. influenzae Not detected Normal NOT DETECTED [facility] Comment on above: Performed By: #### C VDTBH #### [facility] [address] [place] [address] Dr. Ramses Dumas IMP Resistant Gene Not Applicable Normal NOT DETECTED [facility] Comment on above: Performed By: #### C VDTBH #### [facility] [address] [place] [address] Dr. Ramses Dumas K. oxytoca Not detected Normal NOT DETECTED [facility] Comment on above: Performed By: #### C VDTBH #### [facility] [address] [place] [address] Dr. Ramses Dumas K. pneumoniae Not detected Normal NOT DETECTED [facility] Comment on above: Performed By: #### C VDTBH #### [facility] [address] [place] [address] Dr. Ramses Dumas Klebsiella aerogenes Not detected Normal NOT DETECTED [facility] Comment on above: Performed By: #### C VDTBH #### [facility] [address] [place] [address] Dr. Ramses Dumas KPC Resistant Gene Not detected Normal NOT DETECTED [facility] Comment on above: Performed By: #### C VDTBH #### [facility] [address] [place] [address] Dr. Ramses Dumas List. monocytogenes Not detected Normal NOT DETECTED [facility] Comment on above: Performed By: #### C VDTBH #### [facility] [address] [place] [address] Dr. Ramses Dumas Mcr-1 Resistant Gene Not Applicable Normal NOT DETECTE D [facility] Comment on above: Performed By: #### C VDTBH #### [facility] [address] [place] [address] Dr. Ramses Dumas mecA/C Not Applicable Normal NOT DETECTED [facility] Comment on above: Performed By: #### C VDTBH #### [facility] [address] [place] [address] Dr. Ramses Dumas mecA/C MREJ Not Applicable Normal NOT DETECTED [facility] Comment on above: Performed By: #### C VDTBH #### [facility] [address] [place] [address] Dr. Ramses Dumas N. meningitidis Not detected Normal NOT DETECTED [facility] Comment on above: Performed By: #### C VDTBH #### [facility] [address] [place] [address] Dr. Ramses Dumas NDM Resistant Gene Not Applicable Normal NOT DETECTED [facility] Comment on above: Performed By: #### C VDTBH #### [facility] [address] [place] [address] Dr. Ramses Dumas Oxa-48-like Not Applicable Normal NOT DETECTED [facility] Comment on above: Performed By: #### C VDTBH #### [facility] [address] [place] [address] Dr. Ramses Dumas Proteus Not detected Normal NOT DETECTED [facility] Comment on above: Performed By: #### C VDTBH #### [facility] [address] [place] [address] Dr. Ramses Dumas Pseud. aeruginosa Not detected Normal NOT DETECTED [facility] Comment on above: Performed By: #### C VDTBH #### [facility] [address] [place] [address] Dr. Ramses Dumas S. maltophilia Not detected Normal NOT DETECTED [facility] Comment on above: Performed By: #### C VDTBH #### [facility] [address] [place] [address] Dr. Ramses Dumas Salmonella Not detected Normal NOT DETECTED [facility] Comment on above: Performed By: #### C VDTBH #### [facility] [address] [place] [address] Dr. Ramses Dumas Seratia marcescens Not detected Normal NOT DETECTED [facility] Comment on above: Performed By: #### C VDTBH #### [facility] [address] [place] [address] Dr. Ramses Dumas Site: unknown/not given Normal [facility] Comment on above: Performed By: #### C VDTBH #### [facility] [address] [place] [address] Dr. Ramses Dumas Stapphillip. aureus Not detected Normal NOT DETECTED [facility] Comment on above: Performed By: #### C VDTBH #### [facility] [address] [place] [address] Dr. Ramses Dumas Stapphillip. epidermidis Not detected Normal NOT DETECTED [facility] Comment on above: Performed By: #### C VDTBH #### [facility] [address] [place] [address] Dr. Ramses Dumas Stapphillip. lugdunensis Not detected Normal NOT DETECTED [facility] Comment on above: Performed By: #### C VDTBH #### [facility] [address] [place] [address] Dr. Ramses Dumas Staphylococcus Not detected Normal NOT DETECTED [facility] Comment on above: Performed By: #### C VDTBH #### [facility] [address] [place] [address] Dr. Ramses Dumas Strep. agalactiae Detected Critically abnormal NOT DETECTED [facility] Comment on above: Performed By: #### C VDTBH #### [facility] [address] [place] [address] Dr. Ramses Dumas Strep. pneumoniae Not detected Normal NOT DETECTED [facility] Comment on above: Performed By: #### C VDTBH #### [facility] [address] [place] [address] Dr. Ramses Dumas Strep. pyogenes Not detected Normal NOT DETECTED [facility] Comment on above: Performed By: #### C VDTBH #### [facility] [address] [place] [address] Dr. Ramses Dumas Streptococcus Detected Critically abnormal NOT DETECTED [facility] Comment on above: Performed By: #### C VDTBH #### [facility] [address] [place] [address] Dr. Ramses Dumas Efrain/B Resist. Gene Not detected Normal NOT DETECTED [facility] Comment on above: Performed By: #### C VDTBH #### [facility] [address] [place] [address] Dr. Ramses Dumas VIM Resistant Gene Not Applicable Normal NOT DETECTED [facility] Comment on above: Performed By: #### C VDTBH #### [facility] [address] [place] [address] Dr. Ramses Dumas CBC AUTO DIFFon 08-22-2022 BASO # 0.1 103/ul Normal 0.0-0.1 [facility] Comment on above: Performed By: #### U KJ 24 #### [facility] [address] [place] [address] Dr. Ramses Dumas Basophils/100 WBC (Bld) 0.7 % Normal 0.2-2.0 [facility] Comment on above: Performed By: #### U KJ 24 #### [facility] [address] [place] [address] Dr. Ramses Dumas EO # 0.1 103/ul Normal 0.0-0.7 [facility] Comment on above: Performed By: #### U KJ 24 #### [facility] [address] [place] [address] Dr. Ramses Dumas Eosinophils/100 WBC (Bld) 1.7 % Normal 0.9-7.0 [facility] Comment on above: Performed By: #### U KJ 24 #### [facility] [address] [place] [address] Dr. Ramses Dumas Erythrocyte distribution width (RBC) [Ratio] 13.2 % Normal 11.0-15.0 [facility] Comment on above: Performed By: #### U KJ 24 #### [facility] [address] [place] [address] Dr. Ramses Dumas Hematocrit (Bld) [Volume fraction] 39.8 % Normal 36.0-48.0 [facility] Comment on above: Performed By: #### U KJ 24 #### [facility] [address] [place] [address] Dr. Ramses Dumas Hemoglobin (Bld) [Mass/Vol] 12.9 g/dL Normal 12.0-16.0 [facility] Comment on above: Performed By: #### U KJ 24 #### [facility] [address] [place] [address] Dr. Ramses Dumas IG # 0.02 10e3/ul Normal 0.00-0.03 [facility] Comment on above: Performed By: #### U KJ 24 #### [facility] [address] [place] [address] Dr. Ramses Dumas IG % 0.2 % Normal 0.0-0.5 [facility] Comment on above: Performed By: #### U KJ 24 #### [facility] [address] [place] [address] Dr. Ramses Dumas LYMPH # 3.2 103/ul Normal 1.2-3.8 [facility] Comment on above: Performed By: #### U KJ 24 #### [facility] [address] [place] [address] Dr. Ramses Dumas Lymphocytes/100 WBC (Bld) 40.0 % Normal 20.5-60.0 [facility] Comment on above: Performed By: #### U KJ 24 #### [facility] [address] [place] [address] Dr. Ramses Dumas MANUAL DIFF REQ NO Normal [facility] Comment on above: Performed By: #### U KJ 24 #### [facility] [address] [place] [address] Dr. Ramses Dumas MCH (RBC) [Entitic mass] 26.6 pg Critically low 26.7-34.0 [facility] Comment on above: Performed By: #### U KJ 24 #### [facility] [address] [place] [address] Dr. Ramses Dumas MCHC (RBC) [Mass/Vol] 32.4 g/dL Normal 29.9-35.2 [facility] Comment on above: Performed By: #### U KJ 24 #### [facility] [address] [place] [address] Dr. Ramses Dumas MCV (RBC) [Entitic vol] 82.1 fL Normal 81.0-99.0 [facility] Comment on above: Performed By: #### U KJ 24 #### [facility] [address] [place] [address] Dr. Ramses Dumas MONO # 0.6 103/ul Normal 0.3-0.8 [facility] Comment on above: Performed By: #### U KJ 24 #### [facility] [address] [place] [address] Dr. Ramses Dumas Monocytes/100 WBC (Bld) 7.5 % Normal 1.7-12.0 [facility] Comment on above: Performed By: #### U KJ 24 #### [facility] [address] [place] [address] Dr. Ramses Dumas NEUT # 4.0 103/ul Normal 1.4-6.5 [facility] Comment on above: Performed By: #### U KJ 24 #### [facility] [address] [place] [address] Dr. Ramses Dumas Neutrophils/100 WBC (Bld) 49.9 % Normal 43.0-75.0 [facility] Comment on above: Performed By: #### U KJ 24 #### [facility] [address] [place] [address] Dr. Ramses Dumas Platelet mean volume (Bld) [Entitic vol] 9.3 fL Critically low 9.5-13.5 [facility] Comment on above: Performed By: #### U KJ 24 #### [facility] [address] [place] [address] Dr. Ramses Dumas PLT 354 103/ul Normal 150-450 [facility] Comment on above: Performed By: #### U KJ 24 #### [facility] [address] [place] [address] Dr. Ramses Dumas RBC 4.85 106/ul Normal 4.20-5.40 [facility] Comment on above: Performed By: #### U KJ 24 #### [facility] [address] [place] [address] Dr. Ramses Dumas WBC 8.1 103/ul Normal 4.0-11.0 [facility] Comment on above: Performed By: #### U KJ 24 #### [facility] [address] [place] [address] ABD/PELVIS WO CONon [...] KESHIA IRIZARRY Date: 2022-08-22 07:04 Normal [facility]on SARS-CoV-2 (COVID-19) RNA FRANCESCA+probe Ql (Unsp spec) Not detected Normal NOT DETECTED [facility] Comment on above: Result Comment: When diagnostic [...] for this test is supported by the [place] of Health and Human Service's declaration that [...] used). Performed By: #### C MP #### [facility] [address] [place] [address] Dr. Ramses Dumas ER URINE PROFILEon 2 Bilirubin Ql (U) Negative Normal NEGATIVE [facility] Comment on above: Performed By: #### U RCX #### [facility] [address] [place] [address] Dr. Ramses Dumas Clarity (U) CLEAR Normal CLEAR [facility] Comment on above: Performed By: #### U RCX #### [facility] [address] [place] [address] Dr. Ramses Dumas Color (U) LT. YELLOW Normal YELLOW [facility] Comment on above: Performed By: #### U RCX #### [facility] [address] [place] [address] Dr. Ramses DELEON A micrscopic examination will be performed if indicated. Normal [facility] Comment on above: Performed By: #### U RCX #### [facility] [address] [place] [address] Dr. Ramses Dumas Glucose Ql (U) Negative Normal NEGATIVE [facility] Comment on above: Performed By: #### U RCX #### [facility] [address] [place] [address] Dr. Ramses Dumas Hemoglobin Ql (U) SMALL Abnormal NEGATIVE [facility] Comment on above: Performed By: #### U RCX #### [facility] [address] [place] [address] Dr. Ramses Dumas Ketones Ql (U) Negative Normal NEGATIVE [facility] Comment on above: Performed By: #### U RCX #### [facility] [address] [place] [address] Dr. Ramses Dumas LEUKOCYTES SMALL Abnormal NEGATIVE [facility] Comment on above: Performed By: #### U RCX #### [facility] [address] [place] [address] Dr. Ramses Dumas Nitrite Ql (U) Negative Normal NEGATIVE [facility] Comment on above: Performed By: #### U RCX #### [facility] [address] [place] [address] Dr. Ramses Dumas pH (U) 7.0 [pH] Normal 5-9 [facility] Comment on above: Performed By: #### U RCX #### [facility] [address] [place], [place] [id number] Dr. Ramses Dumas Protein (U) [Mass/Vol] 30 mg/dL Abnormal NEGAT CHRIS/ TRACE [facility] Comment on above: Performed By: #### U RCX #### [facility] [address] [place] [address] Dr. Ramses Dumas SPEC GRAVITY 1.020 Normal 1.005-<=1.02 5 [facility] Comment on above: Performed By: #### U RCX #### [facility] [address] [place] [address] Dr. Ramses Dumas UR MICRO IND INDICATED Normal [facility] Comment on above: Performed By: #### U RCX #### [facility] [address] [place] [address] Dr. Ramses Dumas Urobilinogen Qn (U) 0.2 {Lucero'U}/dL Normal 0.2 - 1. 0 [facility] Comment on above: Performed By: #### U RCX #### [facility] [address] [place] [address] Dr. Ramses Dumas LACTATE/LACTIC ACIDon 2021 Lactate [Moles/Vol] 2.3 mmol/L Critically high 0.4-1.9 [facility] Comment on above: Performed By: #### U RCX #### [facility] [address] [place] [address] Dr. Ramses Dumas URon 08-22-2022 , QUAL Negative Normal NEGATIVE [facility] Comment on above: Performed By: #### U RCX #### [facility] [address] [place] [address] Dr. Ramses Dumas PROF 14(COMP METB)on 022 Albumin [Mass/Vol] 3.5 g/dL Normal 3.4-5.0 [facility] Comment on above: Performed By: #### U RCX #### [facility] [address] [place] [address] Dr. Ramses Dumas Albumin/Globulin [Mass ratio] 0.9 {ratio} Normal [facility] Comment on above: Performed By: #### U RCX #### [facility] [address] [address] [address] Ramses Dumas ALP [Catalytic activity/Vol] 92 U/L Normal 46-116 [facility] Comment on above: Performed By: #### U RCX #### [facility] [address] [address] [address] Ramses Dumas ALT [Catalytic activity/Vol] 139 U/L Critically high 14-59 [facility] Comment on above: Performed By: #### U RCX #### [facility] [address] [address] [address] Ramses Dumas Anion gap [Moles/Vol] 10.2 mmol/L Normal [facility] Comment on above: Performed By: #### U RCX #### [facility] [address] [address] [address] Ramses Dumas AST [Catalytic activity/Vol] 112 U/L Critically high 15-37 [facility] Comment on above: Performed By: #### U RCX #### [facility] [address] [address] [address] Ramses Dumas Bilirubin [Mass/Vol] 0.2 mg/dL Normal 0.2-1.0 [facility] Comment on above: Performed By: #### U RCX #### [facility] [address] [address] [address] Ramses Dumas Calcium [Mass/Vol] 8.8 mg/dL Normal 8.5-10.1 [facility] Comment on above: Performed By: #### U RCX #### [facility] [address] [address] [address] Ramses Dumas Chloride [Moles/Vol] 105 mmol/L Normal 98-107 [facility] Comment on above: Performed By: #### U RCX #### [facility] [address] [address] [address] Ramses Dumas CO2 [Moles/Vol] 26.3 mmol/L Normal 21.0-32.0 [facility] Comment on above: Performed By: #### U RCX #### [facility] [address] [address] [address] Ramses Dumas Creatinine [Mass/Vol] 0.95 mg/dL Normal 0.55-1.02 [facility] Comment on above: Performed By: #### U RCX #### [facility] [address] [address] [address] Ramses Dumas EGFR-AF TAJIK >60 Normal >=60 [facility] Comment on above: Performed By: #### U RCX #### [facility] [address] [address] [address] Ramses Dumas EGFR-NON AF TAJIK >60 Normal >=60 [facility] Comment on above: Performed By: #### U RCX #### [facility] [address] [address] [address] Ramses Dumas Globulin (S) [Mass/Vol] 3.9 g/dL Normal [facility] Comment on above: Performed By: #### U RCX #### [facility] [address] [address] [address] Ramses Dumas Glucose [Mass/Vol] 137 mg/dL Critically high 74-106 [facility] Comment on above: Performed By: #### U RCX #### [facility] [address] [address] [address] Ramses Dumas Potassium [Moles/Vol] 3.5 mmol/L Normal 3.5-5.1 [facility] Comment on above: Performed By: #### U RCX #### [facility] [address] [address] [address] Ramses Dumas Protein [Mass/Vol] 7.4 g/dL Normal 6.4-8.2 [facility] Comment on above: Performed By: #### U RCX #### [facility] [address] [address] [address] Ramses Dumas Sodium [Moles/Vol] 138 mmol/L Normal 136-145 [facility] Comment on above: Performed By: #### U RCX #### [facility] [address] [address] [address] Ramses Dumas Urea nitrogen [Mass/Vol] 11.0 mg/dL Normal 7.0-18.0 [facility] Comment on above: Performed By: #### U RCX #### [facility] [address] [place] [address] Dr. Ramses Dumas Urea nitrogen/Creatinine [Mass ratio] 11.6 mg/mg Normal [facility] Comment on above: Performed By: #### U RCX #### [facility] [address] [place] [address] Dr. Ramses Dumas URINE MICROSCOPIC ONLYon BACTERIA LARGE Abnormal NONE SEEN [facility] Comment on above: Performed By: #### U RCX #### [facility] [address] [place] [address] Dr. Ramses Dumas Bacteria identified Cx Nom (U) CX ALREADY ORDERED Normal [facility] Comment on above: Performed By: #### U RCX #### [facility] [address] [place] [address] Dr. Ramses Dumas CAST NONE SEEN Normal NONE SEEN [facility] Comment on above: Performed By: #### U RCX #### [facility] [address] [place] [address] Dr. Ramses Dumas Crystals LM Nom (Urine sed) NONE SEEN Normal NONE SEEN [facility] Comment on above: Performed By: #### U RCX #### [facility] [address] [place] [address] Dr. Ramses Dumas Epithelial cells LM Ql (Urine sed) MANY Abnormal NONE SEEN /RARE [facility] Comment on above: Performed By: #### U RCX #### [facility] [address] [place] [address] Dr. Ramses Dumas MUCOUS NONE SEEN Normal NONE SEEN [facility] Comment on above: Performed By: #### U RCX #### [facility] [address] [place] [address] Dr. Ramses Dumas RBC 5-10 Abnormal 0-2 [facility] Comment on above: Performed By: #### U RCX #### [facility] [address] [place] [address] Dr. Ramses Dumas WBC 50-75 Abnormal NONE SEEN [facility] Comment on above: Performed By: #### U RCX #### [facility] [address] [address] [address] Ramses Dumas CULTURE URINEon 08-15-2022 CULTURE [...] F Tetracycline >=16 R F Normal [facility] Comment on above: Performed By: #### U RCX #### [facility] [address] [address] [address] Ramses Dumas Lipid Panelon 08-14-2022 Cholesterol [Mass/Vol] 162 mg/dL Normal 140-200 [facility] Comment on above: Result Comment: Chol less than 200 mg/dl low risk Chol 201-239 mg/dl borderline risk Chol 240 mg/dl and greater high risk Performed By: #### L IPID, TSH3 wRFLX, [id number] #### [facility] [address] Cholesterol in HDL [Mass/Vol] 42 mg/dL Normal 35-85 [facility] Comment on above: Result Comment: HDL CHOL ATP-III CLASSIFICATION Cardiovascular Risk HDL > or equal to 60 mg/dL LOW HDL < 40 mg/dL HIGH Performed By: #### L IPID, TSH3 wRFLX, [id number] #### [facility] [id number] [facility] Cholesterol.total/Chol esterol in HDL [Mass ratio] 3.9 {ratio} Normal <5.0 [facility] Comment on above: Performed By: #### L IPID, TSH3 wRFLX, [id number] #### [facility] [address] [id number] [place] LDL Cholesterol,Calculated 108 mg/dL High 0-100 [facility] Comment on above: Result Comment: LDL ATP III CLASSIFICATION LDL less than 100 mg/dL Optimal LDL 100-129 mg/dL Near or above optimal LDL 130-159 mg/dL Borderline high LDL 160-189 mg/dL High LDL greater than 189 mg/dL Very high Performed By: #### L IPID, TSH3 wRFLX, [id number] #### [facility] [address] Triglyceride w/Reflex 59 mg/dL Normal 35-149 [facility] Comment on above: Result Comment: TRIG ATP III CLASSIFICATION TRIG less than 150 mg/dL Normal TRIG 150-199 mg/dL Borderline high TRIG 200-500 mg/dL High TRIG greater than 500 mg/dL Very high Standard traceable to the Center for Disease Conrtrol and Prevention (CDC) test method. Performed By: #### L IPID, TSH3 wRFLX, [id number] #### [facility] [address] VLDL CHOLESTEROL 11 mg/dL Normal [facility] Comment on above: Performed By: #### L IPID, TSH3 wRFLX, [id number] #### [facility] [address] Thyroid Stim Hormone w/Rflxo n 08-14-2022 Thyroid Stim Hormone w/Rflx 0.84 u[iU]/mL Normal 0.45-5.33 [facility] Comment on above: Performed By: #### L IPID, TSH3 wRFLX, [id number] #### [facility] [id number] [facility] Vitamin D 25 Hydroxy Totalon 08-14-2022 Vitamin D 25 Hydroxy Total 17.7 ng/mL Low 30-100 [facility] Comment on above: Result Comment: THA MIN D STATUS 25(OH)VITAMIN D RANGE (ng/mL) Deficient <20 Insufficient 20 to <30 Sufficient 30 to 100 Reference: José Miguel MF,Jennifer NC, Mady MARTI, et al. Evaluation,treatment, and prevention of vitamin D deficiency; an Endocrine Society clinical practice guideline. JCEM. 2010; 96(7):2391-30. PERFORMED BY: [facility] [address] [place] [address] PATHOLOGIST [employer]IM [employer] AB ALCANTARA M.D. Performed By: #### L IPID, TSH3 wRFLX, [id number] #### [facility] [address] ACETAMINOPHENon 08-13-2022 Acetaminophen [Mass/Vol] ug/mL Critically low 10.0-30.0 [facility] Comment on above: Performed By: #### U RCX #### [facility] [address] [place] [address] Dr. Ramses Dumas CBC AUTO DIFFon 08-13-2022 BASO # 0.1 103/ul Normal 0.0-0.1 [facility] Comment on above: Performed By: #### C VDTBH #### [facility] [address] [place] [address] Dr. Ramses Dumas Basophils/100 WBC (Bld) 0.8 % Normal 0.2-2.0 [facility] Comment on above: Performed By: #### C VDTBH #### [facility] [address] [place] [address] Dr. Ramses Dumas EO # 0.1 103/ul Normal 0.0-0.7 [facility] Comment on above: Performed By: #### C VDTBH #### [facility] [address] [place] [address] Dr. Ramses Dumas Eosinophils/100 WBC (Bld) 1.6 % Normal 0.9-7.0 [facility] Comment on above: Performed By: #### C VDTBH #### [facility] [address] [place] [address] Dr. Ramses Dumas Erythrocyte distribution width (RBC) [Ratio] 13.3 % Normal 11.0-15.0 [facility] Comment on above: Performed By: #### C VDTBH #### [facility] [address] [place] [address] Dr. Ramses Dumas Hematocrit (Bld) [Volume fraction] 40.6 % Normal 36.0-48.0 [facility] Comment on above: Performed By: #### C VDTBH #### [facility] [address] [place] [address] Dr. Ramses Dumas Hemoglobin (Bld) [Mass/Vol] 13.2 g/dL Normal 12.0-16.0 [facility] Comment on above: Performed By: #### C VDTBH #### [facility] [address] [place] [address] Dr. Ramses Dumas IG # 0.01 10e3/ul Normal 0.00-0.03 [facility] Comment on above: Performed By: #### C VDTBH #### [facility] [address] [place] [address] Dr. Ramses Dumas IG % 0.2 % Normal 0.0-0.5 [facility] Comment on above: Performed By: #### C VDTBH #### [facility] [address] [place] [address] Dr. Ramses Dumas LYMPH # 2.4 103/ul Normal 1.2-3.8 [facility] Comment on above: Performed By: #### C VDTBH #### [facility] [address] [place] [address] Dr. Ramses Dumas Lymphocytes/100 WBC (Bld) 37.7 % Normal 20.5-60.0 [facility] Comment on above: Performed By: #### C VDTBH #### [facility] [address] [place] [address] Dr. Ramses Dumas MANUAL DIFF REQ NO Normal [facility] Comment on above: Performed By: #### C VDTBH #### [facility] [address] [place] [address] Dr. Ramses Dumas MCH (RBC) [Entitic mass] 26.7 pg Normal 26.7-34.0 [facility] Comment on above: Performed By: #### C VDTBH #### [facility] [address] [place] [address] Dr. Ramses Dumas MCHC (RBC) [Mass/Vol] 32.5 g/dL Normal 29.9-35.2 [facility] Comment on above: Performed By: #### C VDTBH #### [facility] [address] [place] [address] Dr. Ramses Dumas MCV (RBC) [Entitic vol] 82.0 fL Normal 81.0-99.0 [facility] Comment on above: Performed By: #### C VDTBH #### [facility] [address] [place] [address] Dr. Ramses Dumas MONO # 0.6 103/ul Normal 0.3-0.8 [facility] Comment on above: Performed By: #### C VDTBH #### [facility] [address] [place] [address] Dr. Ramses Dumas Monocytes/100 WBC (Bld) 8.6 % Normal 1.7-12.0 [facility] Comment on above: Performed By: #### C VDTBH #### [facility] [address] [place] [address] Dr. Ramses Dumas NEUT # 3.3 103/ul Normal 1.4-6.5 [facility] Comment on above: Performed By: #### C VDTBH #### [facility] [address] [place] [address] Dr. Ramses Dumas Neutrophils/100 WBC (Bld) 51.1 % Normal 43.0-75.0 [facility] Comment on above: Performed By: #### C VDTBH #### [facility] [address] [place] [address] Dr. Ramses Dumas Platelet mean volume (Bld) [Entitic vol] 8.7 fL Critically low 9.5-13.5 [facility] Comment on above: Performed By: #### C VDTBH #### [facility] [address] [place] [address] Dr. Ramses Dumas PLT 409 103/ul Normal 150-450 [facility] Comment on above: Performed By: #### C VDTBH #### [facility] [address] [place] [address] Dr. Ramses Dumas RBC 4.95 106/ul Normal 4.20-5.40 [facility] Comment on above: Performed By: #### C VDTBH #### [facility] [address] [place] [address] Dr. Ramses Dumas WBC 6.4 103/ul Normal 4.0-11.0 [facility] Comment on above: Performed By: #### C VDTBH #### [facility] [address] [place] [address] Dr. Ramses Dumas Covid-19 PCR ([facility])on 07-20 SARS-CoV-2 (COVID-19) RNA FRANCESCA+probe Ql (Unsp spec) Not detected Normal NOT DETECTED [facility] Comment on above: Result Comment: When diagnostic [...] for this test is supported by the [place] of Health and Human Service's declaration that [...] used). Performed By: #### C VDTBH #### [facility] [address] [place] [address] Dr. Ramses Dumas DRUG SCREEN RAPID (URINE)on 08-13-2022 AMP Negative Normal NEGATIVE [facility] Comment on above: Performed By: #### C BC #### [facility] [address] [place] [address] Dr. Ramses Dumas BAR Negative Normal NEGATIVE [facility] Comment on above: Performed By: #### C BC #### [facility] [address] [place], [place] [id number] Dr. Ramses Dumas BUP Negative Normal NEGATIVE [facility] Comment on above: Performed By: #### C BC #### [facility] [address] [place] [address] Dr. Ramses Dumas BZO Negative Normal NEGATIVE [facility] Comment on above: Performed By: #### C BC #### [facility] [address] [place] [address] Dr. Ramses Dumas ODILIA Negative Normal NEGATIVE [facility] Comment on above: Performed By: #### C BC #### [facility] [address] [place] [address] Dr. Ramses Dumas CUT-OFFS SEE BELOW Normal [facility] Comment on above: Result Comment: AMP [...] ng/mL Performed By: #### C BC #### [facility] [address] [place] [address] Dr. Ramses Dumas DRUG CUT HEADER DRUG CLASS TEST SYSTEM CUT-OFF CONCENTRATIONS ARE FOLLOWS: Normal [facility] Comment on above: Performed By: #### C BC #### [facility] [address] [place] [address] Dr. Ramses Dumas mAMP Negative Normal NEGATIVE [facility] Comment on above: Performed By: #### C BC #### [facility] [address] [place] [address] Dr. Ramses Dumas MTD Negative Normal NEGATIVE [facility] Comment on above: Performed By: #### C BC #### [facility] [address] [place] [address] Dr. Ramses Dumas OPI Negative Normal NEGATIVE [facility] Comment on above: Performed By: #### C BC #### [facility] [address] [place] [address] Dr. Ramses Dumas OXY Negative Normal NEGATIVE [facility] Comment on above: Performed By: #### C BC #### [facility] [address] [place] [address] Dr. Ramses Dumas PCP Negative Normal NEGATIVE [facility] Comment on above: Performed By: #### C BC #### [facility] [address] [place] [address] Dr. Ramses Dumas PPX Negative Normal NEGATIVE [facility] Comment on above: Performed By: #### C BC #### [facility] [address] [place] [address] Dr. Ramses Dumas TCA Negative Normal NEGATIVE [facility] Comment on above: Performed By: #### C BC #### [facility] [address] [place] [address] Dr. Ramses Dumas THC Negative Normal NEGATIVE [facility] Comment on above: Performed By: #### C BC #### [facility] [address] [place] [address] Dr. Ramses Dumas ER URINE PROFILEon 2 Bilirubin Ql (U) Negative Normal NEGATIVE [facility] Comment on above: Performed By: #### C BC #### [facility] [address] [place] [address] Dr. Ramses Dumas Clarity (U) CLEAR Normal CLEAR [facility] Comment on above: Performed By: #### C BC #### [facility] [address] [place] [address] Dr. Ramses Dumas Color (U) LT. YELLOW Normal YELLOW [facility] Comment on above: Performed By: #### C BC #### [facility] [address] [place] [address] Dr. Ramses DELEON A micrscopic examination will be performed if indicated. Normal [facility] Comment on above: Performed By: #### C BC #### [facility] [address] [place], [place] [id number] Dr. Ramses Dumas Glucose Ql (U) Negative Normal NEGATIVE [facility] Comment on above: Performed By: #### C BC #### [facility] [address] [place] [address] Dr. Ramses Dumas Hemoglobin Ql (U) LARGE Abnormal NEGATIVE [facility] Comment on above: Performed By: #### C BC #### [facility] [address] [place] [address] Dr. Ramses Dumas Ketones Ql (U) Negative Normal NEGATIVE [facility] Comment on above: Performed By: #### C BC #### [facility] [address] [place] [address] Dr. Ramses Dumas LEUKOCYTES LARGE Abnormal NEGATIVE [facility] Comment on above: Performed By: #### C BC #### [facility] [address] [place] [address] Dr. Ramses Dumas Nitrite Ql (U) Positive Abnormal NEGATIVE [facility] Comment on above: Performed By: #### C BC #### [facility] [address] [place] [address] Dr. Ramses Dumas pH (U) 6.0 [pH] Normal 5-9 [facility] Comment on above: Performed By: #### C BC #### [facility] [address] [place] [address] Dr. Ramses Dumas Protein (U) [Mass/Vol] 30 mg/dL Abnormal NEGAT CHRIS/ TRACE [facility] Comment on above: Performed By: #### C BC #### [facility] [address] [place] [address] Dr. Ramses Dumas SPEC GRAVITY >=1.030 Abnormal 1.005-<=1.02 5 [facility] Comment on above: Performed By: #### C BC #### [facility] [address] [place] [address] Dr. Ramses Dumas UR MICRO IND INDICATED Normal [facility] Comment on above: Performed By: #### C BC #### [facility] [address] [place] [address] Dr. Ramses Dumas Urobilinogen Qn (U) 0.2 {Lucero'U}/dL Normal 0.2 - 1. 0 [facility] Comment on above: Performed By: #### C BC #### [facility] [address] [address] [address] Ramses Dumas ETHANOL (BLD ALC)on 08-13-20 22 ALC NOTE NOTE: 80 mg/dl is th e legal limit for a blood alcohol level Normal [facility] Comment on above: Performed By: #### B LDCX2 #### [facility] [address] [place] [address] Dr. Ramses Dumas Ethanol [Mass/Vol] mg/dL Normal [facility] Comment on above: Performed By: #### B LDCX2 #### [facility] [address] [place] [address] Dr. Ramses Dumas URon 08-13-2022 , QUAL Negative Normal NEGATIVE [facility] Comment on above: Performed By: #### C BC #### [facility] [address] [place] [address] Dr. Ramses Dumas PROF 14(COMP METB)on 022 Albumin [Mass/Vol] 3.8 g/dL Normal 3.4-5.0 [facility] Comment on above: Performed By: #### U RCX #### [facility] [address] [place] [address] Dr. Ramses Dumas Albumin/Globulin [Mass ratio] 0.9 {ratio} Normal [facility] Comment on above: Performed By: #### U RCX #### [facility] [address] [place] [address] Dr. Ramses Dumas ALP [Catalytic activity/Vol] 82 U/L Normal 46-116 [facility] Comment on above: Performed By: #### U RCX #### [facility] [address] [place] [address] Dr. Ramses Dumas ALT [Catalytic activity/Vol] 41 U/L Normal 14-59 [facility] Comment on above: Performed By: #### U RCX #### [facility] [address] [address] [address] Ramses Dumas Anion gap [Moles/Vol] 9.3 mmol/L Normal [facility] Comment on above: Performed By: #### U RCX #### [facility] [address] [place] [address] Dr. Ramses Dumas AST [Catalytic activity/Vol] 21 U/L Normal 15-37 [facility] Comment on above: Performed By: #### U RCX #### [facility] [address] [address] [address] Ramses Dumas Bilirubin [Mass/Vol] 0.3 mg/dL Normal 0.2-1.0 [facility] Comment on above: Performed By: #### U RCX #### [facility] [address] [place] [address] Dr. Ramses Dumas Calcium [Mass/Vol] 8.9 mg/dL Normal 8.5-10.1 [facility] Comment on above: Performed By: #### U RCX #### [facility] [address] [place] [address] Dr. Ramses Dumas Chloride [Moles/Vol] 105 mmol/L Normal 98-107 [facility] Comment on above: Performed By: #### U RCX #### [facility] [address] [place] [address] Dr. Ramses Dumas CO2 [Moles/Vol] 28.5 mmol/L Normal 21.0-32.0 [facility] Comment on above: Performed By: #### U RCX #### [facility] [address] [place] [address] Dr. Ramses Dumas Creatinine [Mass/Vol] 0.81 mg/dL Normal 0.55-1.02 [facility] Comment on above: Performed By: #### U RCX #### [facility] [address] [place] [address] Dr. Ramses Dumas EGFR-AF TAJIK >60 Normal >=60 [facility] Comment on above: Performed By: #### U RCX #### [facility] [address] [place] [address] Dr. Ramses Dumas EGFR-NON AF TAJIK >60 Normal >=60 [facility] Comment on above: Performed By: #### U RCX #### [facility] [address] [place] [address] Dr. Ramses Dumas Globulin (S) [Mass/Vol] 4.1 g/dL Normal [facility] Comment on above: Performed By: #### U RCX #### [facility] [address] [place] [address] Dr. Ramses Dumas Glucose [Mass/Vol] 100 mg/dL Normal 74-106 [facility] Comment on above: Performed By: #### U RCX #### [facility] [address] [place] [address] Dr. Ramses Dumas Potassium [Moles/Vol] 3.8 mmol/L Normal 3.5-5.1 [facility] Comment on above: Performed By: #### U RCX #### [facility] [address] [place] [address] Dr. Ramses Dumas Protein [Mass/Vol] 7.9 g/dL Normal 6.4-8.2 [facility] Comment on above: Performed By: #### U RCX #### [facility] [address] [place] [address] Dr. Ramses Dumas Sodium [Moles/Vol] 139 mmol/L Normal 136-145 [facility] Comment on above: Performed By: #### U RCX #### [facility] [address] [place] [address] Dr. Ramses Dumas Urea nitrogen [Mass/Vol] 10.0 mg/dL Normal 7.0-18.0 [facility] Comment on above: Performed By: #### U RCX #### [facility] [address] [place] [address] Dr. Ramses Dumas Urea nitrogen/Creatinine [Mass ratio] 12.3 mg/mg Normal [facility] Comment on above: Performed By: #### U RCX #### [facility] [address] [place] [address] Dr. Ramses Dumas SALICYLATEon 08-13-2022 SALICYLATE <2.8 Normal <=19.9 [facility] Comment on above: Performed By: #### U RCX #### [facility] [address] [place] [address] Dr. Ramses Dumas URINE MICROSCOPIC ONLYon BACTERIA LARGE Abnormal NONE SEEN [facility] Comment on above: Performed By: #### C BC #### [facility] [address] [place] [address] Dr. Ramses Dumas Bacteria identified Cx Nom (U) INDICATED Normal [facility] Comment on above: Performed By: #### C BC #### [facility] [address] [place] [address] Dr. Ramses Dumas CA OX CRYSTALS RARE Normal [facility] Comment on above: Performed By: #### C BC #### [facility] [address] [place] [address] Dr. Ramses Dumas CAST NONE SEEN Normal NONE SEEN [facility] Comment on above: Performed By: #### C BC #### [facility] [address] [place] [address] Dr. Ramses Dumas Crystals LM Nom (Urine sed) SEEN Abnormal NONE SEEN [facility] Comment on above: Performed By: #### C BC #### [facility] [address] [place] [address] Dr. Ramses Dumas Epithelial cells LM Ql (Urine sed) MODERATE Abnormal NONE SEEN /RARE [facility] Comment on above: Performed By: #### C BC #### [facility] [address] [place] [address] Dr. Ramses Dumas MUCOUS NONE SEEN Normal NONE SEEN [facility] Comment on above: Performed By: #### C BC #### [facility] [address] [place] [address] Dr. Ramses Dumas RBC 10-20 Abnormal 0-2 [facility] Comment on above: Performed By: #### C BC #### [facility] [address] [place] [address] Dr. Ramses Dumas WBC 20-50 Abnormal NONE SEEN [facility] Comment on above: Performed By: #### C BC #### [facility] [address] [address] [address] Ramses Dumas Pap IG,rfx Aptima HPV all pt hon 08-09-2022 . . Normal [facility] Comment on above: Performed By: #### C MP #### [facility] [address] [address] [address] Ramses Dumas DIAGNOSIS: Comment Abnormal [facility] Comment on above: Result Comment: EPIT HELIAL CELL ABNORMALITY. LOW GRADE SQUAMOUS INTRAEPITHELIAL LESION (LSIL). Performed By: #### C MP #### [facility] [address] [address] [address] Ramses Dumas Electronically signed by: Comment Normal [facility] Comment on above: Result Comment: Arnaud Joseph MD, Pathologist Performed By: #### C MP #### [facility] [address] [place] [address] Dr. Ramses Dumas HPV Aptima Negative Normal Negative [facility] Comment on above: Result Comment: This nucleic acid amplification test detects fourteen high-risk HPV types (16,18,31,33,35,39,45,51,52,56,58,59,66,68) without differentiation. Performed By: #### C MP #### [facility] [address] [place] [address] Dr. Ramses Dumas Methodology: Comment Normal [facility] Comment on above: Result Comment: This liquid based ThinPrep(R) pap test was screened with the use of an image guided system. Performed By: #### C MP #### [facility] [address] [address] [address] Ramses Dumas Note: Comment Normal [facility] Comment on above: Result Comment: The Pap smear is a screening test designed to aid in the detection of premalignant and malignant conditions of the uterine cervix. It is not a diagnostic procedure and should not be used as the sole means of detecting cervical cancer. Both false-positive and false-negative reports do occur. . Performed By: #### C MP #### [facility] [address] [place] [address] Dr. Ramses Dumas Pathologist Provided ICD10 Comment Normal [facility] Comment on above: Result Comment: [id number]. [id number] Performed By: #### C MP #### [facility] [address] [address] [address] Ramses Duams Performed by: Comment Normal [facility] Comment on above: Result Comment: Gail Ruano, Manager Wound Care (ASCP) Performed By: #### C MP #### [facility] [address] [id number] Ramses Dumas Reflex Criteria: Comment Normal [facility] Comment on above: Result Comment: See below for HPV testing results. . Performed By: #### C MP #### [facility] [id number] Ramses Dumas Specimen adequacy: Comment [facility] Comment on above: Result Comment: Sati sfactory for evaluation. Endocervical and/or squamous metaplastic cells (endocervical component) are present. Performed By: #### C MP #### [facility] [address] [address] [address] Ramses Dumas Vital Signs Date Time Vital Sign Value Performing Clinician Rikyi chris 03-20-2023 10:30-0400 Blood Pressure Location Nona VILLA [facility] 03-20-2023 10:30-0400 Diastolic blood pressure 73 mm[Hg] Nona VILLA [facility] 03-20-2023 10:30-0400 Heart rate 80 /min Nona VILLA [facility] 03-20-2023 10:30-0400 Respiratory rate 16 /min Nona VILLA [facility] 03-20-2023 10:30-0400 Systolic blood pressure 128 mm[Hg] Nona VILLA [facility] Encounters Encounter Date Encounter Type Care Provider Facility Start: 12-17-2023 End: 12-17-2023 ambulatory CELIO VAN Not Available Start: 12-04-2023 End: 12-05-2023 ambulatory Nona VILLA Facility:[facility] Start: 12-04-2023 End: 12-04-2023 Patient encounter procedure Nona VILLA [facility] Start: 04-09-2023 End: 04-10-2023 ambulatory Nona VILLA Facility:[id number] Start: 03-20-2023 End: 03-21-2023 ambulatory Nona VILLA Facility:[facility] Start: 03-20-2023 End: 03-20-2023 Patient encounter procedure Nona VILLA [facility] Start: 02-16-2023 End: 02-16-[address] DOMINGO DAS . Facility:[facility] Start: 02-02-2023 End: 02-02-[address] DOMINGO DAS . Facility: Start: 12-26-2022 End: 12-27-2022 ambulatory Nona VILLA Facility:[facility] Start: 12-26-2022 End: 12-26-2022 Patient encounter procedure Nona VILLA [facility] Start: 12-16-2022 End: 12-17-[address] NONA VILLA . Facility:[facility] Start: 12-15-2022 End: 12-16-[address] NONA VILLA . Facility:[facility] Start: 11-27-[address] DOMINGO DAS . Facili ty:[facility] Start: 11-07-2022 End: 11-07-[address] DOMINGO DAS . Facility:[facility] Start: 11-04-2022 Encounter for preprocedural cardiovascular examination DR JEFFERSON GIBBS . [facility] Start: 11-04-2022 Encounter for preprocedural laboratory examination DR JEFFERSON GIBBS . [facility] Start: 11-03-2022 End: 11-04-2022 Encounter for preprocedural cardiovascular examination DR DOMINGO DAS . Facility:[facility] Start: 11-03-2022 End: 11-04-[address] DOMINGO DAS . Facility:[facility] Start: 09-20-2022 Encounter for preprocedural laboratory examination DR NONA VILLA . [facility] Start: 09-18-2022 End: 09-18-[address] NONA VILLA . Facility:[facility] Start: 09-16-2022 End: 09-17-[address] NONA VILLA . Facility:[facility] Start: 09-16-2022 End: 09-17-2022 Encounter for preprocedural laboratory examination DR NONA VILLA . Facility:[facility] Start: 09-05-2022 End: 09-05-2022 ambulatory ORA BOND . Facility:[facility] Start: 09-04-2022 End: 09-04-2022 ambulatory DANIEL SANTIAGO Facility:[facility] Start: 09-04-2022 End: 09-04-2022 ambulatory Daniel M Ulises OIL WELL GUN PERFORATOR OPERATOR.PRINTING ASSISTANT Work Phone: Urology Comment on above: NO SHOW (Primary Dx) Start: 09-04-2022 End: 09-04-2022 Telemedicine consultation with patient Daniel Santiago OIL WELL GUN PERFORATOR OPERATOR.PRINTING ASSISTANT Work Phone: [facility] Start: 08-28-2022 End: 08-29-[address] ERWIN MOORE Facility:[facility] Start: 08-22-2022 End: 08-24-[address] DOMINGO DAS . Facility:[facility] Start: 08-13-2022 End: 08-16-2022 Evaluation and management of inpatient Abdelrahma Traci Facility:[facility] Start: 08-13-2022 End: 08-13-2022 ambulatory ORA BOND . Facility:[facility] Start: 07-31-2022 Encounter for cervic al smear to confirm findings of recent normal smear following initial abnormal smear DR JEFFERSON GIBBS . [facility] Start: 07-30-2022 End: 07-30-[address] DOMINGO DAS . Facility:[facility] Start: 07-30-2022 End: 07-30-2022 Encounter for cervical smear to confirm findings of recent normal smear following initial abnormal smear DR DOMINGO DAS . Facility: Start: 07-02-2022 End: 07-03-[address] DOMINGO DAS . Facility: Procedures Date Procedure Procedure Detail Performing Clinician Start: 09-19-2022 Cystoscopic laser li thotripsy of ureteric calculus Nona VILLA Start: 08-22-2022 Cystoscopic insertio n of ureteric stent Nona VILLA Start: 04-05-2020 Ureteroscopy Nona LEE Start: 03-01-2020 Ureteroscopy Nona LEE Comment on above: left Start: 02-27-2020 Cystoscopic insertio n of ureteric stent Nona VILLA Start: 12-19-2019 Cystourethroscopy wi th dilation of urethral stricture Nona VILLA Start: 05-30-2012 Cholecystectomy Nona VILLA Plan of Treatment Date Care Activity Detail Author Start: 06-19-2022 Influenza vaccination INFLUENZA (#1) [facility] Start: 10-19-2021 DEPRESSION ASSESSMENT DEPRESSION ASS ESSMENT [facility] Start: 2021 HPV TESTING HPV TESTING [facility] Start: 2012 PAP TESTING PAP TESTING [facility] Start: 2010 Urine microalbumin profile DTAP,TDAP ,TD (1 - Tdap) [facility] Start: 2009 [facility] HIV SCREENING HIV SCREENING [facility] Start: 03-14-1992 COVID-19 VACCINE (#1) COVID-19 VACCI NE (#1) [facility] Start: 1991 HEPATITIS B (1 of 3 - 3-dose series) HEPATITIS B (1 of 3 - 3-dose series) [facility] Immunizations Immunization Date Immunization Notes Care Provider Fa ralfty 08-01-2019 influenza virus vaccine, unspecified formulation Nona VILLA [facility] 08-09-2018 tetanus toxoid, redu franco diphtheria toxoid, and acellular pertussis vaccine, adsorbed Nona VILLA [facility] 08-08-2018 influenza virus vaccine, unspecified formulation [email or web address] [facility] 06-19-2004 hepatitis B vaccine, pediatric or pediatric/adolescent dosage NonaMunchkin [facility] 03-27-2004 hepatitis B vaccine, pediatric or pediatric/adolescent dosage NonaMunchkin [facility] 12-18-2003 hepatitis B vaccine, pediatric or pediatric/adolescent dosage NonaMunchkin [facility] 12-18-2003 measles, mumps and rubella virus vaccine Nona Knight Warner [facility] 04-10-1993 DTaP, unspecified formulation [email or web address] [facility] 04-10-1993 poliovirus vaccine, unspecified formulation NonaMunchkin [facility] 12-28-1992 Hib, unspecified formulation Nona Knight Warner [facility] 12-28-1992 measles, mumps and rubella virus vaccine Nona Knight [facility] 03-26-1992 Hib, unspecified formulation Nona Knight Warner [facility] 01-18-1992 Hib, unspecified formulation Nona Knight Warner [facility] 1991 Hib, unspecified formulation Nona VILLA [facility] Payers Date Payer Category Payer Self-pay 2021 [facility] TERM 09/17 PRE[facility] MEDICAID [id number] 2021-Present [phone] [address] [place] [address] Medicaid [id number] 1991 Unknown [id number] [id number] 1991 Unknown [id number] 2.16.840.1.590324.3.579.2.593 1991 Unknown [id number] 2.16.840.1.030411.3.579.2.593 1991 Unknown [id number] 2.16.840.1.221461.3.579.2.593 1991 Unknown [id number] 2.16.840.1.642807.3.579.2.593 1991 Unknown [id number] 2.16.840.1.986400.3.579.2.593 1991 Unknown [id number] 2.16.840.1.747833.3.579.2.593 1991 Unknown [id number] 2.16.840.1.001881.3.579.2.593 1991 Unknown [id number] 2.16.840.1.047153.3.579.2.593 1991 Unknown [id number] 2.16.840.1.516899.3.579.2.593 1991 Unknown [id number] 2.16.840.1.736814.3.579.2.593 1991 Unknown [id number] 2.16.840.1.588904.3.579.2.593 1991 Unknown [id number] 2.16.840.1.130095.3.579.2.593 1991 Unknown [id number] 2.16.840.1.179278.3.579.2.593 1991 Unknown [id number] 2.16.840.1.292613.3.579.2.593 1991 Unknown [id number] 2.16.840.1.918609.3.579.2.593 1991 Unknown [id number] 2.16.840.1.350244.3.579.2.727 1991 Unknown [id number] 2.16.840.1.760589.3.579.2.727 1991 Unknown [id number] 2.16.840.1.449092.3.579.2.727 1991 Unknown [id number] 2.16.840.1.542801.3.579.2.727 1991 Unknown [id number] 2.16.840.1.847228.3.579.2.1259 1959 Self-pay [id number] 1959 Unknown [id number] 1959 Unknown [id number] Unknown [id number] 2.16.840.1.664123.3.579.2.531 Social History Date Type Detail Facility Tobacco smoking status OHIS Tobacco smoking consumption unknown [facility] Start: 1991 Sex Assigned At Not on file [facility] Start: 08-20-2021 End: 03-20-2023 Tobacco smoking status Never smoked tobacco (finding) [facility] Tobacco smoking status Never [facility] Sex Assigned At Female [facility] Functional Status Date Assessment Result Facility 03-20-2023 Functional Status N/A [facility] Clinical Notes 07-03-2022 to 03-20-2023 Daniel Santiago APRN.PRINTING ASSISTANT - 09/04/2022 7:40 AM EST Note Date & Type Note Facility 03-20-2023 Hospital Discharge instructions Follow Up Care 03/20/2023 11:51:58 With:IDALMIS BORDEN, Nona Turner, ALDOL Address: [address] [place] [address] [place] [address]- When: Unknown [facility]a 03-20-2023 Hospital Discharge instructions Patient Education [...] include: ?8 oz (237 mL) of milk, rhovzue-pftyqodipugv-ucftu milk, and calcium-fortifiedfruit juice. Calcium-fortified means that [...] ?Spinach (cooked), rhubarb, beets, sweet potatoes, and Cuban chard. ?Peanuts. ?Potato chips, vietnamese fries, and baked potatoes with skin on. ?Nuts and nut products. ?Chocolate. If you regularly take a diuretic medicine, make sure to eat at least 1 or 2 servings of fruits or vegetables that are high in potassium each day. These include: ?Avocado. ?Banana. ?Crawford, prune, carrot, or tomato juice. ?Baked potato. [...] magnesium, fish oil, or vitamin B6. Take [id number] and prescription medicines only as told by [...] Casseroles. Pizza. Lasagna. Frozen meals. Potato chips. Pakistani fries. The items listed above may not [...] provider. Document Revised: 06/16/2022 Document Reviewed: 06/16/2022 [employer] Patient Education 2022 [employer]. Follow Up Care 12/26/2022 08:46:46 With:IDALMIS BORDEN, Nona Turner, URL Address: [facility] [address] , [place] [address]- When: Unknown [facility] 11-07-2022 Note OPERATIVE NOTE OPERATION DATE: 11/07/2022 PROCEDURE: Mery endometrial ablation with LEEP. PREOPERATIVE DIAGNOSIS: Cervical dysplasia, menorrhagia. POSTOPERATIVE DIAGNOSIS: Cervical dysplasia, menorrhagia. ANESTHESIA: General. SURGEON: Jefferson Gibbs D.O. STRAWHAT INSPECTOR AND PACKER: None. BLOOD LOSS: 50 mL. URINE OUTPUT: [...] to Recovery Room in stable condition. [facility] 09-25-2022 Hospital Discharge instructions Follow Up Care 09/25/2022 13:54:04 With:IDALMIS BORDEN, Nona Turner, URL Address: [address] [place], [place] [id number]- When: Unknown [facility] 09-18-2022 Note OPERATIVE NOTE OPERATION DATE: [...] usual fashion. I started by passing a 22-Pak[place] Olympus cystoscope per urethra and into the [...] removed. She was then transferred to a gurney and wheeled to PACU in stable condition. [facility] 09-04-2022 Note HNO ID: [id number] Author: Daniel Santiago APRN.PRINTING ASSISTANT Service: ? Author Type: Nurse Practitioner Type: Progress Notes Filed: 09/04/2022 7:46 AM Note Text: The patient did not show up for this appointment. The patient did not show up for this appointment. [facility] 09-04-2022 History of Present illness Narrative The patient did not show up for this appointment. The patient did not show up for this appointment. documented in this encounter [facility] 07-03-2022 Note PROCEDURE: XR ANKLE LT MIN 3 V COMPARISON: None. HISTORY: Sprain of calcaneofibular ligament FINDINGS: BONES:No fracture, acute abnormality, or significant arthropathy. SOFT TISSUES:Extensive lateral soft tissue swelling EFFUSION:None visible. OTHER: Negative. IMPRESSION: Lateral soft tissue swelling. No acute fracture Electronically authenticated by: GLEN GRAFF Date: 2022-07-03 07:09 [facility] Evaluation + Plan note Future Appointments Appointment Date:03/20/2023 10:15:00 AM Scheduled Provider:Nona VILLA MD Location:[facility] Appointment Type:URO Office Visit [facility] Evaluation + Plan note Future Appointments Appointment Date:12/04/2023 09:45:00 AM Scheduled Provider:Nona VILLA MD Location:[facility] Appointment Type:URO Office Visit Diagnostic Tests PendingElectrolyte Panel 03/20/23 [facility] Evaluation note Diagnosis NO SHOW- Primary documented in this encounter [facility] course Narrative No data available for this section [facility] progress note No data available for this section [facility] Summary Purpose Family History No Family History Records FoundNo Family History Records FoundNo Family History Records Found No data available for this section No Family History Records FoundNo Family History Records Found Advance Directives No Advanced Directives Records FoundNo Advanced Directives Records FoundNo Advanced Directives Records FoundNo Advanced Directives Records FoundNo Advanced Directives Records Found Additional Source Comments INFORMATION SOURCE (unrecogn ized section and content) DATE CREATED AUTHOR 08/23/2022 [facility] DATE CREATED AUTHOR AUTHOR'S ORGANIZ ATION 09/06/2022 [facility] DATE CREATED AUTHOR AUTHOR'S ORGANIZ ATION 02/19/2023 [facility] DATE CREATED AUTHOR AUTHOR'S ORGANIZ ATION 12/06/2023 [facility] DATE CREATED AUTHOR AUTHOR'S ORGANIZ ATION 12/19/2023 [facility] EPIC Source Comments (unrecognize d section and content) In the event this informatio n is protected by the Federal Confidentiality of Alcohol and Drug Abuse Patient Records regulations: The Federal rules restrict any use of the information to criminally investigate or prosecute any alcohol or drug abuse patient.[facility] Reason for Visit (unrecogniz ed section and content) Reason Onset Date Comments No Show 09/04/2022 No show Care Teams (unrecognized sec tion and content) [employer] 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 [facility]. provides no warranty or guarantee of the accuracy or completeness of information in this document.
== END 2023-12-23 12:43 | disposition home or self-care (01) ==
LOC: MAMMO 12:42
PROVIDERS: PCP Family Medicine; Visit Provider Obstetrics & Gynecology
DX: N63.20 Unspecified lump in the left breast, unspecified quadrant (principal); R59.1 Generalized enlarged lymph nodes; N63.23 Unspecified lump in the left breast, lower outer quadrant
CPT/HCPCS: 76642; 77066; G0279

== ENCOUNTER 2023-12-29 07:10 | Day surgery (SDC) | payer SELFPAY ==
--- OUTSIDE RECORDS SUMMARY | 2023-12-29 07:14 | XMS_ITS | CCD ---
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 duplicate message [facility] Operative Reporton Operative Report [id number]#1. 00CD:127 [facility] RAD - MISCon 04-10-2023 RAD - MISC [id number] .00CD:127 [facility] Lab Reportson 04-06-2023 Lab Reports [id number] .00CD:127 [facility] Lab Reports [id number]#1 .00CD:127 [facility] Lab Reportson 03-23-2023 Lab Reports [id number]#1 .00CD:127 [facility] Lab Reports [id number]#1 .00CD:127 [facility] Lab Reports [id number] .00CD:127 [facility] RAD - CT Reporton 03-23-2023 RAD - CT Report [id number] .00CD:127 [facility] RAD - CT Report [id number]#1 .00CD:127 [facility] Ambulatory Visit Summaryon 0 03-20-2023 Ambulatory Visit Summary NITHYAROSS BoswellDIANA L :1990 Visit Date:03/20/2023 Ambulatory Visit Instructions Your Diagnosis Kidney stone Hypercalciuria History of kidney stones Hyperoxaluria Your Care Team Attending Physician - Nona VILLA MD Primary Care Physician - Dominog Das MD This Is Your Medications List [...] When: Where: [facility] [address] [place] [address]- Medications What When Instructions Unchanged olanzapine-samidorpha n [...] handful of b (more content not included)... [facility] Consent for Procedure/Surger yon 03-20-2023 Consent for Procedure/Surgery [id number] .00CD:127 [facility] Patient Educationon 03-20-20 23 Patient Education Nephrology [...] Spinach (cooked), rhubarb, beets, sweet potatoes, and Latvian chard. ? Peanuts. ? Potato chips, maltese fries, and baked potatoes with skin on. ? Nuts and nut products. ? Chocolate. ? If you regularly take a diuretic medicine, make sure to eat at least 1 or 2 servings of fruits or vegetables that are high in potassium each day. These include: ? Avocado. ? Banana. ? [place], prune, carrot, or tomato juice. ? Baked [...] fish oil, or vitamin B6. ? Take zvjk-zrd-tqaoxsk and prescription medicines only as told by your health care provider. These include supplements. What foods should I limit? Limit your in (more content not included)... Normal [facility] Urology Office/Clinic Noteon 03-20-2023 Urology [...] Lt kidney pain. Did got to the [place] ER. DX'd & treated for UTI. (NEG [...] L. Ox slightly elevated. Pt presented to [facility] ER on 03/06/23 due to L kidney [...] mg qd. SEs discussed. Rx sent to [facility] [place]. -Electrolyte panel 4 weeks to the [...] [facility] [address], [place] [address]- Additional Instructions: schedule R ESWL Patient Education [...] kidney s (more content not included)... Normal [facility] Comment on above: Result Comment: Elec tronically Signed By: IDALMIS BORDEN, Nona Turner\.br\Date and Time Signed: 03/20/23 11:30 EDT\.br\Electronically Co-Signed By: Whitney Collier\.br\Date and Time Co-Signed: 03/20/23 11:28 EDT CBC AUTO DIFFon 02-16-2023 BASO # 0.1 103/ul Normal 0.0-0.1 [facility] Comment on above: Performed By: #### U KJ 24 #### [facility] [address] [address] [address] Ramses Dumas Basophils/100 WBC (Bld) 0.5 % Normal 0.2-2.0 [facility] Comment on above: Performed By: #### U KJ 24 #### [facility] [address] [address] [address] Ramses Dumas EO # 0.0 103/ul Normal 0.0-0.7 [facility] Comment on above: Performed By: #### U KJ 24 #### [facility] [address] [address] [address] Ramses Dumas Eosinophils/100 WBC (Bld) 0.4 % Critically low 0.9-7.0 [facility] Comment on above: Performed By: #### U KJ 24 #### [facility] [address] [address] [address] Ramses Dumas Erythrocyte distribution width (RBC) [Ratio] 13.7 % Normal 11.0-15.0 [facility] Comment on above: Performed By: #### U KJ 24 #### [facility] [address] [address] [address] Ramses Dumas Hematocrit (Bld) [Volume fraction] 45.1 % Normal 36.0-48.0 [facility] Comment on above: Performed By: #### U KJ 24 #### [facility] [address] [address] [address] Ramses Dumas Hemoglobin (Bld) [Mass/Vol] 14.3 g/dL Normal 12.0-16.0 [facility] Comment on above: Performed By: #### U KJ 24 #### [facility] [address] [address] [address] Ramses Dumas IG # 0.02 10e3/ul Normal 0.00-0.03 [facility] Comment on above: Performed By: #### U KJ 24 #### [facility] [address] [place] [address] Dr. Ramses Dumas IG % 0.2 % Normal 0.0-0.5 [facility] Comment on above: Performed By: #### U KJ 24 #### [facility] [address] [place] [address] Dr. Ramses Dumas LYMPH # 2.5 103/ul Normal 1.2-3.8 [facility] Comment on above: Performed By: #### U KJ 24 #### [facility] [address] [place] [address] Dr. Ramses Dumas Lymphocytes/100 WBC (Bld) 26.4 % Normal 20.5-60.0 [facility] Comment on above: Performed By: #### U KJ 24 #### [facility] [address] [address] [address] Ramses Dumas MANUAL DIFF REQ NO Normal [facility] Comment on above: Performed By: #### U KJ 24 #### [facility] [address] [place] [address] Dr. Ramses Dumas MCH (RBC) [Entitic mass] 25.6 pg Critically low 26.7-34.0 [facility] Comment on above: Performed By: #### U KJ 24 #### [facility] [address] [place] [address] Dr. Ramses Dumas MCHC (RBC) [Mass/Vol] 31.7 g/dL Normal 29.9-35.2 [facility] Comment on above: Performed By: #### U KJ 24 #### [facility] [address] [address] [address] Ramses Dumas MCV (RBC) [Entitic vol] 80.7 fL Critically low 81.0-99.0 [facility] Comment on above: Performed By: #### U KJ 24 #### [facility] [address] [address] [address] Ramses Dumas MONO # 0.7 103/ul Normal 0.3-0.8 [facility] Comment on above: Performed By: #### U KJ 24 #### [facility] [address] [place] [address] Dr. Ramses Dumas Monocytes/100 WBC (Bld) 7.6 % Normal 1.7-12.0 [facility] Comment on above: Performed By: #### U KJ 24 #### [facility] [address] [place] [address] Dr. Ramses Dumas NEUT # 6.1 103/ul Normal 1.4-6.5 [facility] Comment on above: Performed By: #### U KJ 24 #### [facility] [address] [place] [address] Dr. Ramses Dumas Neutrophils/100 WBC (Bld) 64.9 % Normal 43.0-75.0 [facility] Comment on above: Performed By: #### U KJ 24 #### [facility] [address] [place] [address] Dr. Ramses Dumas Platelet mean volume (Bld) [Entitic vol] 11.0 fL Normal 9.5-13.5 [facility] Comment on above: Performed By: #### U KJ 24 #### [facility] [address] [place] [address] Dr. Ramses Dumas PLT 270 103/ul Normal 150-450 [facility] Comment on above: Performed By: #### U KJ 24 #### [facility] [address] [place] [address] Dr. Ramses Dumas RBC 5.59 106/ul Critically high 4.20-5.40 [facility] Comment on above: Performed By: #### U KJ 24 #### [facility] [address] [place], [place] [address] Dr. Ramses Dumas WBC 9.4 103/ul Normal 4.0-11.0 [facility] Comment on above: Performed By: #### U KJ 24 #### [facility] [address] [place], [place] [address] ABD/PELV W CONon [...] FARTUN NOVOA Date: 2023-02-16 18:21 Normal [facility] URINE PROFILEon 3 Bilirubin Ql (U) SMALL Abnormal NEGATIVE [facility] Comment on above: Performed By: #### C MP #### [facility] [address] [place] [address] Dr. Ramses Dumas Clarity (U) CLEAR Normal CLEAR [facility] Comment on above: Performed By: #### C MP #### [facility] [address] [place] [address] Dr. Ramses Dumas Color (U) YELLOW Normal YELLOW [facility] Comment on above: Performed By: #### C MP #### [facility] [address] [place] [address] Dr. Ramses Dumas ERUCARLOS ENRIQUE A micrscopic examination will be performed if indicated. Normal [facility] Comment on above: Performed By: #### C MP #### [facility] [address] [place] [address] Dr. Ramses Dumas Glucose Ql (U) Negative Normal NEGATIVE [facility] Comment on above: Performed By: #### C MP #### [facility] [address] [place] [address] Dr. Ramses Dumas Hemoglobin Ql (U) Negative Normal NEGATIVE [facility] Comment on above: Performed By: #### C MP #### [facility] [address] [place] [address] Dr. Ramses Dumas Ketones Ql (U) 40 mg/dl Abnormal NEGATIVE [facility] Comment on above: Performed By: #### C MP #### [facility] [address] [place] [address] Dr. Ramses Dumas LEUKOCYTES SMALL Abnormal NEGATIVE [facility] Comment on above: Performed By: #### C MP #### [facility] [address] [place] [address] Dr. Ramses Dumas Nitrite Ql (U) Negative Normal NEGATIVE [facility] Comment on above: Performed By: #### C MP #### [facility] [address] [place] [address] Dr. Ramses Dumas pH (U) 7.0 [pH] Normal 5-9 [facility] Comment on above: Performed By: #### C MP #### [facility] [address] [place] [address] Dr. Ramses Dumas Protein (U) [Mass/Vol] 30 mg/dL Abnormal NEGAT CHRIS/ TRACE [facility] Comment on above: Performed By: #### C MP #### [facility] [address] [place] [address] Dr. Ramses Dumas SPEC GRAVITY 1.020 Normal 1.005-<=1.02 5 [facility] Comment on above: Performed By: #### C MP #### [facility] [address] [place] [address] Dr. Ramses Dumas UR MICRO IND INDICATED Normal [facility] Comment on above: Performed By: #### C MP #### [facility] [address] [place] [address] Dr. Ramses Dumas Urobilinogen Qn (U) 4 {Lucero'U}/dL Abnormal 0.2 - 1.0 [facility] Comment on above: Performed By: #### C MP #### [facility] [address] [place] [address] Dr. Ramses Dumas LIPASEon 02-16-2023 Lipase [Catalytic activity/Vol] 67.0 U/L Critically low 73.0-393.0 [facility] Comment on above: Performed By: #### U RCX #### [facility] [address] [place] [address] Dr. Ramses Dumas LIVER PROFILEon 02-16-2023 Albumin [Mass/Vol] 4.1 g/dL Normal 3.4-5.0 [facility] Comment on above: Performed By: #### U RCX #### [facility] [address] [place] [address] Dr. Ramses Dumas Albumin/Globulin [Mass ratio] 1.0 {ratio} Normal [facility] Comment on above: Performed By: #### U RCX #### [facility] [address] [place] [address] Dr. Ramses Dumas ALP [Catalytic activity/Vol] 85 U/L Normal 46-116 [facility] Comment on above: Performed By: #### U RCX #### [facility] [address] [address] [address] Ramses Dumas ALT [Catalytic activity/Vol] 61 U/L Critically high 14-59 [facility] Comment on above: Performed By: #### U RCX #### [facility] [address] [address] [address] Ramses Dumas AST [Catalytic activity/Vol] 43 U/L Critically high 15-37 [facility] Comment on above: Performed By: #### U RCX #### [facility] [address] [address] [address] Ramses Dumas BILI, CONJUGATED 0.1 mg/dL Normal 0.0-0.2 [facility] Comment on above: Performed By: #### U RCX #### [facility] [address] [address] [address] Ramses Dumas Bilirubin [Mass/Vol] 0.7 mg/dL Normal 0.2-1.0 [facility] Comment on above: Performed By: #### U RCX #### [facility] [address] [address] [address] Ramses Dumas Globulin (S) [Mass/Vol] 4.2 g/dL Normal [facility] Comment on above: Performed By: #### U RCX #### [facility] [address] [address] [address] Ramses Dumas Protein [Mass/Vol] 8.3 g/dL Critically high 6.4-8.2 [facility] Comment on above: Performed By: #### U RCX #### [facility] [address] [address] [address] Ramses Dumas URon 02-16-2023 , QUAL Negative Normal NEGATIVE [facility] [place] [facility] Comment on above: Performed By: #### C MP #### [facility] [address] [address] [address] Ramses Dumas PROF CHEM 8 (BAS METB)on Anion gap [Moles/Vol] 14.2 mmol/L Normal [facility] Comment on above: Performed By: #### U RCX #### [facility] [address] [address] [address] Ramses Dumas Calcium [Mass/Vol] 9.5 mg/dL Normal 8.5-10.1 [facility] Comment on above: Performed By: #### U RCX #### [facility] [address] [address] [address] Ramses Dumas Chloride [Moles/Vol] 102 mmol/L Normal 98-107 [facility] Comment on above: Performed By: #### U RCX #### [facility] [address] [address] [address] Ramses Dumas CO2 [Moles/Vol] 27.5 mmol/L Normal 21.0-32.0 [facility] Comment on above: Performed By: #### U RCX #### [facility] [address] [address] [address] Ramses Dumas Creatinine [Mass/Vol] 0.71 mg/dL Normal 0.55-1.02 [facility] Comment on above: Performed By: #### U RCX #### [facility] [address] [address] [address] Ramses Dumas EGFR-AF DJIBOUTIAN >60 Normal >=60 [facility] Comment on above: Performed By: #### U RCX #### [facility] [address] [address] [address] Ramses Dumas EGFR-NON AF DJIBOUTIAN >60 Normal >=60 [facility] Comment on above: Performed By: #### U RCX #### [facility] [address] [address] [address] Ramses Dumas Glucose [Mass/Vol] 90 mg/dL Normal 74-106 [facility] Comment on above: Performed By: #### U RCX #### [facility] [address] [address] [address] Ramses Dumas Potassium [Moles/Vol] 3.7 mmol/L Normal 3.5-5.1 [facility] Comment on above: Performed By: #### U RCX #### [facility] [address] [address] [address] Ramses Dumas Sodium [Moles/Vol] 140 mmol/L Normal 136-145 [facility] Comment on above: Performed By: #### U RCX #### [facility] [address] [address] [address] Ramses Dumas Urea nitrogen [Mass/Vol] 6.0 mg/dL Critically low 7.0-18.0 [facility] Comment on above: Performed By: #### U RCX #### [facility] [address] [place] [address] Dr. Ramses Dumas Urea nitrogen/Creatinine [Mass ratio] 8.5 mg/mg Normal [facility] Comment on above: Performed By: #### U RCX #### [facility] [address] [place] [address] Dr. Ramses Dumas URINE MICROSCOPIC ONLYon BACTERIA NONE SEEN Normal NONE SEEN [facility] Comment on above: Performed By: #### U KJ 24 #### [facility] [address] [place] [address] Dr. Ramses Dumas Bacteria identified Cx Nom (U) NOT INDICATED Normal [facility] Comment on above: Performed By: #### U KJ 24 #### [facility] [address] [place] [address] Dr. Ramses Dumas CAST NONE SEEN Normal NONE SEEN [facility] Comment on above: Performed By: #### U KJ 24 #### [facility] [address] [place] [address] Dr. Ramses Dumas Crystals LM Nom (Urine sed) NONE SEEN Normal NONE SEEN [facility] Comment on above: Performed By: #### U KJ 24 #### [facility] [address] [place] [address] Dr. Ramses Dumas Epithelial cells LM Ql (Urine sed) FEW Abnormal NONE SEEN /RARE [facility] Comment on above: Performed By: #### U KJ 24 #### [facility] [address] [place] [address] Dr. Ramses Dumas MUCOUS SMALL Abnormal NONE SEEN [facility] Comment on above: Performed By: #### U JK 24 #### [facility] [address] [address] [address] Ramses Dumas RBC NONE SEEN Abnormal 0-2 [facility] Comment on above: Performed By: #### U KJ 24 #### [facility] [address] [address] [address] Ramses Dumas WBC 0-2 Abnormal NONE SEEN [facility] Comment on above: Performed By: #### U KJ 24 #### [facility] [address] [place] [address] Dr. Ramses Dumas PAP ACOG PANEL 2: 30 to 65on 02-10-2023 . . Normal [facility] Comment on above: Result Comment: Perf ormed at: WB Performed By: #### U RCX #### [facility] [address] [place] [address] Dr. Ramses Dumas Age Gdln ACOG Testing 30-65 Normal [facility] Comment on above: Performed By: #### U RCX #### [facility] [address] [place] [address] Dr. Ramses Dumas DIAGNOSIS: Comment Normal [facility] Comment on above: Result Comment: NEGA TIVE FOR INTRAEPITHELIAL LESION OR MALIGNANCY. REACTIVE CELLULAR CHANGES AND/OR REPAIR ARE PRESENT. Performed at: WB Performed By: #### U RCX #### [facility] [address] [place] [address] Dr. Ramses Dumas Electronically signed by: Comment Normal [facility] Comment on above: Result Comment: Chelsey Boston MD, Pathologist Performed at: WB Performed By: #### U RCX #### [facility] [address] [place] [address] Dr. Ramses Dumas HPV Aptima Negative Normal Negative [facility] Comment on above: Result Comment: This nucleic acid amplification test detects fourteen high-risk HPV types (16,18,31,33,35,39,45,51,52,56,58,59,66,68) without differentiation. Performed at: =G Performed By: #### U RCX #### [facility] [address] [place] [address] Dr. Ramses Dumas HPV Genotype Reflex Comment Normal [facility] Comment on above: Result Comment: Crit eria not met, HPV Genotype not performed. Performed at: WB Performed By: #### U RCX #### [facility] [address] [place] [address] Dr. Ramses Dumas Methodology: Comment Normal [facility] Comment on above: Result Comment: This liquid based ThinPrep(R) pap test was screened with the use of an image guided system. Performed at: WB Performed By: #### U RCX #### [facility] [address] [address] [address] Ramses Dumas Note: Comment Normal [facility] Comment on above: Result Comment: The [...] WB Performed By: #### U RCX #### [facility] [address] [place] [address] Dr. Ramses Dumas Performed by: Comment Normal [facility] Comment on above: Result Comment: Cuca Briceno, Mold Breaker (ASCP) Performed at: WB Performed By: #### U RCX #### [facility] [address] [place] [address] Dr. Ramses Dumas Specimen adequacy: Comment Normal [facility] Comment on above: Result Comment: Sati sfactory for evaluation. Endocervical and/or squamous metaplastic cells (endocervical component) are present. Performed at: WB Performed By: #### U RCX #### [facility] [address] [address] [address] Ramses Dumas Lab Reportson 12-29-2022 Lab Reports [id number] .[id number]:127 Normal [facility] RAD - MISCon 12-21-2022 RAD - MISC [id number] .00CD:127 Normal [facility] OXALATE 24HR URINEon 023 Oxalates, Urine 44 mg/L Normal Undefined [facility] [place] [facility] Comment on above: Performed By: #### U KJ 24 #### [facility] [address] [place] [address] Dr. Ramses Dumas Oxalates, Urine 24hr 44 mg/24 hr Critically high 4-31 [facility] Comment on above: Performed By: #### U KJ 24 #### [facility] [address] [place] [address] Dr. Ramses Dumas CITRATE URINE 24HRon 023 Citric Acid, U, 24hr 658 mg/24 hr Normal 320-1240 [facility] Comment on above: Result Comment: This test was developed and its performance characteristics determined by [facility]. It has not been cleared or approved by the Food and Drug Administration. Performed By: #### C ITRATU #### [facility] [address] [place] [address] Dr. Ramses Dumas Citric Acid, Urine 658 mg/L Normal Undefined [facility] Comment on above: Performed By: #### C ITRATU #### [facility] [address] [place] [address] Dr. Ramses Dumas MAGNESIUM 24HR URINEon 12-17 Magnesium 24hr Urine 119.0 mg/24 hr Normal 12.0-293.0 [facility] Comment on above: Performed By: #### U RCX #### [facility] [address] [place] [address] Dr. Ramses Dumas Magnesium UR 11.9 mg/dL Normal Not Estab. [facility] Comment on above: Performed By: #### U RCX #### [facility] [address] [place], [place] [address] Dr. Ramses Dumas PHOSPHORUS 24HR URINEon Phosphorus, Urine 81.4 mg/dL Normal Not Estab. [facility] Comment on above: Performed By: #### B LDCX2 #### [facility] [address] [place] [address] Dr. Ramses Dumas Phosphorus, Urine 24hr 814 mg/24 hr Normal 261-1078 [facility] Comment on above: Performed By: #### B LDCX2 #### [facility] [address] [place] [address] Dr. Ramses Dumas PTH INTACTon 12-17-2022 PTH, Intact 46 pg/mL Normal 15-65 [facility] Comment on above: Performed By: #### U RCX #### [facility] [address] [place] [address] Dr. Ramses Dumas URIC ACID 24 HR URINEon Uric Acid, Urine 69.9 mg/dL Normal Not Estab. [facility] Comment on above: Performed By: #### U KJ 24 #### [facility] [address] [place] [address] Dr. Ramses Dumas Uric Acid, Urine 24hr 699.0 mg/24 hr Normal 173.7-902. 1 [facility] Comment on above: Performed By: #### U KJ 24 #### [facility] [address] [place] [address] Dr. Ramses Dumas BUNon 12-16-2022 Urea nitrogen [Mass/Vol] 7.0 mg/dL Normal 7.0-18.0 [facility] Comment on above: Performed By: #### C BC #### [facility] [address] [place] [address] Dr. Ramses Dumas CALCIUMon 12-16-2022 Calcium [Mass/Vol] 8.8 mg/dL Normal 8.5-10.1 [facility] Comment on above: Performed By: #### C BC #### [facility] [address] [place] [address] Dr. Ramses Dumas CALCIUM 24 HR URINEon 2022 CALC, 24 HR UR 295.0 mg/24 hr Normal 100.0-300.0 [facility] Comment on above: Performed By: #### B [id number] #### [facility] [address] [place] [address] Dr. Ramses Dumas UR CALCIUM 29.5 mg/dL Critically high 5.1-21.0 [facility] Comment on above: Performed By: #### B LDCX2 #### [facility] [address] [place] [address] Dr. Ramses Dumas CHLORIDEon 12-16-2022 Chloride [Moles/Vol] 105 mmol/L Normal 98-107 [facility] Comment on above: Performed By: #### C BC #### [facility] [address] [place] [address] Dr. Ramses Dumas CO2on 12-16-2022 CO2 [Moles/Vol] 26.4 mmol/L Normal 21.0-32.0 [facility] Comment on above: Performed By: #### C MP #### [facility] [address] [place] [address] Dr. Ramses Dumas CREA 24 HR URINEon 3 CREA, 24 HR UR 2337.30 mg/24 hr Critically high 800.00 -1,800 .00 [facility] Comment on above: Performed By: #### C VDTBH #### [facility] [address] [place] [address] Dr. Ramses Dumas URINE CREAT 233.73 mg/dL Normal 20.00-300.00 [facility] Comment on above: Performed By: #### C VDTBH #### [facility] [address] [place] [address] Dr. Ramses Dumas CREATININEon 12-16-2022 Creatinine [Mass/Vol] 0.70 mg/dL Normal 0.55-1.02 [facility] Comment on above: Performed By: #### C MP #### [facility] [address] [place] [address] Dr. Ramses Dumas EGFR-AF DJIBOUTIAN >60 Normal >=60 [facility] Comment on above: Performed By: #### C MP #### [facility] [address] [place] [address] Dr. Ramses Dumas EGFR-NON AF DJIBOUTIAN >60 Normal >=60 [facility] Comment on above: Performed By: #### C MP #### [facility] [address] [place] [address] Dr. Ramses Dumas NAon 12-16-2022 Sodium [Moles/Vol] 139 mmol/L Normal 136-145 [facility] Comment on above: Performed By: #### C MP #### [facility] [address] [place] [address] Dr. Ramses Dumas POTASSIUMon 12-16-2022 Potassium [Moles/Vol] 4.0 mmol/L Normal 3.5-5.1 [facility] Comment on above: Performed By: #### C MP #### [facility] [address] [place] [address] Dr. Ramses Dumas SODIUM 24 HR URINEon 023 NA, 24 HR UR 193 mmol/24 hr Normal 40-220 [facility] Comment on above: Performed By: #### C VDTBH #### [facility] [address] [place] [address] Dr. aRmses Dumas Sodium (U) [Moles/Vol] 193 mmol/L Critically high 30-90 [facility] Comment on above: Performed By: #### C VDTBH #### [facility] [address] [place] [address] Dr. Ramses Dumas UR TOT VOL 1000 ml/24 HR Normal [facility] Comment on above: Performed By: #### C VDTBH #### [facility] [address] [place] [address] Dr. Ramses Dumas Performed By: #### B LDCX2 #### [facility] [address] [place] [address] Dr. Ramses Dumas URIC ACID SERUMon 12-16-2022 Urate [Mass/Vol] 5.6 mg/dL Normal 2.6-6.0 [facility] Comment on above: Performed By: #### C MP #### [facility] [address] [place] [address] Dr. Ramses Dumas XR KUB 1 VIEWon [...] JENNIFER GATES Date: 2022-12-15 08:26 Normal [facility] CBC AUTO DIFFon 11-07-2022 BASO # 0.0 103/ul Normal 0.0-0.1 [facility] Comment on above: Performed By: #### U RCX #### [facility] [address] [place] [address] Dr. Ramses Dumas Basophils/100 WBC (Bld) 0.7 % Normal 0.2-2.0 [facility] Comment on above: Performed By: #### U RCX #### [facility] [address] [place] [address] Dr. Ramses Dumas EO # 0.1 103/ul Normal 0.0-0.7 [facility] Comment on above: Performed By: #### U RCX #### [facility] [address] [place] [address] Dr. Ramses Dumas Eosinophils/100 WBC (Bld) 1.9 % Normal 0.9-7.0 [facility] Comment on above: Performed By: #### U RCX #### [facility] [address] [place] [address] Dr. Ramses Dumas Erythrocyte distribution width (RBC) [Ratio] 13.6 % Normal 11.0-15.0 [facility] Comment on above: Performed By: #### U RCX #### [facility] [address] [place] [address] Dr. Ramses Dumas Hematocrit (Bld) [Volume fraction] 37.3 % Normal 36.0-48.0 [facility] Comment on above: Performed By: #### U RCX #### [facility] [address] [place] [address] Dr. Ramses Dumas Hemoglobin (Bld) [Mass/Vol] 12.2 g/dL Normal 12.0-16.0 [facility] Comment on above: Performed By: #### U RCX #### [facility] [address] [place] [address] Dr. Ramses Dumas IG # 0.02 10e3/ul Normal 0.00-0.03 [facility] Comment on above: Performed By: #### U RCX #### [facility] [address] [place] [address] Dr. Ramses Dumas IG % 0.3 % Normal 0.0-0.5 [facility] Comment on above: Performed By: #### U RCX #### [facility] [address] [place] [address] Dr. Ramses Dumas LYMPH # 2.3 103/ul Normal 1.2-3.8 [facility] Comment on above: Performed By: #### U RCX #### [facility] [address] [place] [address] Dr. Ramses Dumas Lymphocytes/100 WBC (Bld) 39.6 % Normal 20.5-60.0 [facility] Comment on above: Performed By: #### U RCX #### [facility] [address] [place] [address] Dr. Ramses Dumas MANUAL DIFF REQ NO Normal [facility] Comment on above: Performed By: #### U RCX #### [facility] [address] [place] [address] Dr. Ramses Dumas MCH (RBC) [Entitic mass] 26.4 pg Critically low 26.7-34.0 [facility] Comment on above: Performed By: #### U RCX #### [facility] [address] [place] [address] Dr. Ramses Dumas MCHC (RBC) [Mass/Vol] 32.7 g/dL Normal 29.9-35.2 [facility] Comment on above: Performed By: #### U RCX #### [facility] [address] [place] [address] Dr. Ramses Dumas MCV (RBC) [Entitic vol] 80.7 fL Critically low 81.0-99.0 [facility] Comment on above: Performed By: #### U RCX #### [facility] [address] [place] [address] Dr. Ramses Dumas MONO # 0.5 103/ul Normal 0.3-0.8 [facility] Comment on above: Performed By: #### U RCX #### [facility] [address] [place] [address] Dr. Ramses Dumas Monocytes/100 WBC (Bld) 8.0 % Normal 1.7-12.0 [facility] Comment on above: Performed By: #### U RCX #### [facility] [address] [place] [address] Dr. Ramses Dumas NEUT # 2.9 103/ul Normal 1.4-6.5 [facility] Comment on above: Performed By: #### U RCX #### [facility] [address] [place] [address] Dr. Ramses Dumas Neutrophils/100 WBC (Bld) 49.5 % Normal 43.0-75.0 [facility] Comment on above: Performed By: #### U RCX #### [facility] [address] [place] [address] Dr. Ramses Dumas Platelet mean volume (Bld) [Entitic vol] 9.0 fL Critically low 9.5-13.5 [facility] Comment on above: Performed By: #### U RCX #### [facility] [address] [place] [address] Dr. Ramses Dumas PLT 337 103/ul Normal 150-450 [facility] Comment on above: Performed By: #### U RCX #### [facility] [address] [place] [address] Dr. Ramses Dumas RBC 4.62 106/ul Normal 4.20-5.40 [facility] Comment on above: Performed By: #### U RCX #### [facility] [address] [place] [address] Dr. Ramses Dumas WBC 5.9 103/ul Normal 4.0-11.0 [facility] Comment on above: Performed By: #### U RCX #### [facility] [address] [place] [address] Dr. Ramses Dumas POINT OF CARE GLUCOSEon 10-20 Glucose [Mass/Vol] 115 mg/dL Critically high 74-106 [facility] Comment on above: Performed By: #### C VDTBH #### [facility] [address] [place] [address] Dr. Ramses Dumas PREG QUANT HCGon 11-07-2022 HCG QUANT <1 Normal [facility] Comment on above: Performed By: #### C VDTBH #### [facility] [address] [place] [address] Dr. Ramses Dumas HCG RANGE SEE BELOW Normal [facility] Comment on above: Result Comment: 5-50 0.2-1 WEEK 50-500 1-2 WEEKS 100-5,000 2-3 WEEKS 500-10,000 3-4 WEEKS 1,000-50,000 4-5 WEEKS 10,000-100,000 5-6 WEEKS 15,000-200,000 6-8 WEEKS 10,000-100,000 2-3 MONTHS Performed By: #### C VDTBH #### [facility] [address] [place] [address] Dr. Ramses Dumas US PELVIS AND TRANSVAGon [...] cm right ovarian simple cyst Normal [facility] CBC AUTO DIFFon 11-03-2022 BASO # 0.1 103/ul Normal 0.0-0.1 [facility] Comment on above: Performed By: #### U RCX #### [facility] [address] [place] [address] Dr. Ramses Dumas Basophils/100 WBC (Bld) 0.8 % Normal 0.2-2.0 [facility] Comment on above: Performed By: #### U RCX #### [facility] [address] [place] [address] Dr. Ramses Dumas EO # 0.1 103/ul Normal 0.0-0.7 [facility] Comment on above: Performed By: #### U RCX #### [facility] [address] [place] [address] Dr. Ramses Dumas Eosinophils/100 WBC (Bld) 1.4 % Normal 0.9-7.0 [facility] Comment on above: Performed By: #### U RCX #### [facility] [address] [place] [address] Dr. Ramses Dumas Erythrocyte distribution width (RBC) [Ratio] 13.4 % Normal 11.0-15.0 [facility] Comment on above: Performed By: #### U RCX #### [facility] [address] [place] [address] Dr. Ramses Dumas Hematocrit (Bld) [Volume fraction] 38.8 % Normal 36.0-48.0 [facility] Comment on above: Performed By: #### U RCX #### [facility] [address] [place] [address] Dr. Ramses Dumas Hemoglobin (Bld) [Mass/Vol] 12.7 g/dL Normal 12.0-16.0 [facility] Comment on above: Performed By: #### U RCX #### [facility] [address] [place] [address] Dr. Ramses Dumas IG # 0.01 10e3/ul Normal 0.00-0.03 [facility] Comment on above: Performed By: #### U RCX #### [facility] [address] [place] [address] Dr. Ramses Dumas IG % 0.1 % Normal 0.0-0.5 [facility] Comment on above: Performed By: #### U RCX #### [facility] [address] [place] [address] Dr. Ramses Dumas LYMPH # 1.9 103/ul Normal 1.2-3.8 [facility] Comment on above: Performed By: #### U RCX #### [facility] [address] [place] [address] Dr. Ramses Dumas Lymphocytes/100 WBC (Bld) 26.4 % Normal 20.5-60.0 [facility] Comment on above: Performed By: #### U RCX #### [facility] [address] [place] [address] Dr. Ramses Dumas MANUAL DIFF REQ NO Normal [facility] Comment on above: Performed By: #### U RCX #### [facility] [address] [place] [address] Dr. Ramses Dumas MCH (RBC) [Entitic mass] 26.3 pg Critically low 26.7-34.0 [facility] Comment on above: Performed By: #### U RCX #### [facility] [address] [place] [address] Dr. Ramses Dumas MCHC (RBC) [Mass/Vol] 32.7 g/dL Normal 29.9-35.2 [facility] Comment on above: Performed By: #### U RCX #### [facility] [address] [place] [address] Dr. Ramses Dumas MCV (RBC) [Entitic vol] 80.5 fL Critically low 81.0-99.0 [facility] Comment on above: Performed By: #### U RCX #### [facility] [address] [place] [address] Dr. Ramses Dumas MONO # 0.6 103/ul Normal 0.3-0.8 [facility] Comment on above: Performed By: #### U RCX #### [facility] [address] [place] [address] Dr. Ramses Dumas Monocytes/100 WBC (Bld) 8.2 % Normal 1.7-12.0 [facility] Comment on above: Performed By: #### U RCX #### [facility] [address] [place] [address] Dr. Ramses Dumas NEUT # 4.5 103/ul Normal 1.4-6.5 [facility] Comment on above: Performed By: #### U RCX #### [facility] [address] [place] [address] Dr. Ramses Dumas Neutrophils/100 WBC (Bld) 63.1 % Normal 43.0-75.0 [facility] Comment on above: Performed By: #### U RCX #### [facility] [address] [place] [address] Dr. Ramses Dumas Platelet mean volume (Bld) [Entitic vol] 8.9 fL Critically low 9.5-13.5 [facility] Comment on above: Performed By: #### U RCX #### [facility] [address] [place] [address] Dr. Ramses Dumas PLT 340 103/ul Normal 150-450 [facility] Comment on above: Performed By: #### U RCX #### [facility] [address] [place] [address] Dr. Ramses Dumas RBC 4.82 106/ul Normal 4.20-5.40 [facility] Comment on above: Performed By: #### U RCX #### [facility] [address] [place] [address] Dr. Ramses Dumas WBC 7.1 103/ul Normal 4.0-11.0 [facility] Comment on above: Performed By: #### U RCX #### [facility] [address] [place] [address] Dr. Ramses Dumas Covid-19 PCR ([facility])on 10-19 SARS-CoV-2 (COVID-19) RNA FRANCESCA+probe Ql (Unsp spec) Not detected Normal NOT DETECTED [facility] Comment on above: Result Comment: This test is not yet approved or cleared by the [place] FDA. When there are no FDA-approved or cleared tests available, and other criteria are met, FDA can make tests available under an emergency access mechanism called an Emergency Use Authorization (EUA). The EUA for this test is supported by the Community Outreach Director of Health and Human Service's (HHS's) declaration [...] SARS-CoV-2. Performed By: #### U RCX #### [facility] [address] [place] [address] Dr. Ramses Dumas FREE T4on 11-03-2022 Free T4 [Mass/Vol] 0.99 ng/dL Normal 0.76-1.46 [facility] Comment on above: Performed By: #### B LDCX2 #### [facility] [address] [place] [address] Dr. Ramses Dumas GLYCOHEMOGLOBIN A1Con 2022 ADA RECOMMENDATION SEE BELOW Normal [facility] Comment on above: Result Comment: ADA RECOMMENDED LIMIT 4.0 - 6.0 ADA THERAPEUTIC TARGET < 7.0 ACTION SUGGESTED > 7.0 Performed By: #### C VDTBH #### [facility] [address] [place] [address] Dr. Ramses Dumas Glucose [Mass/Vol] 117 mg/dL Normal [facility] Comment on above: Performed By: #### C VDTBH #### [facility] [address] [place] [address] Dr. Ramses Dumas HbA1c (Bld) [Mass fraction] 5.7 % Normal 4.5-6.2 [facility] Comment on above: Performed By: #### C VDTBH #### [facility] [address] [place] [address] Dr. Ramses Dumas PROTIMEon 11-03-2022 INR Coag (PPP) [Relative time] 0.97 {INR} Normal [facility] Comment on above: Performed By: #### U KJ 24 #### [facility] [address] [place] [address] Dr. Ramses Dumas INR GUIDELINES SEE BELOW Normal [facility] Comment on above: Result Comment: TOÑA RED INR: 2.0 - 3.0 CONDITIONS NOT LISTED BELOW 2.5 - 3.5 FOR PROSTHETIC HEART VALVE REPLACEMENT 2.5 - 3.5 RECURRENT THROMBOSIS Performed By: #### U KJ 24 #### [facility] [address] [place] [address] Dr. Ramses Dumas PT Coag (PPP) [Time] 10.3 s Normal 9.0-11.6 [facility] Comment on above: Performed By: #### U KJ 24 #### [facility] [address] [place] [address] Dr. Ramses Dumas PTTon 11-03-2022 aPTT Coag (Bld) [Time] 27.7 s Normal 22.3-36.2 [facility] Comment on above: Performed By: #### U KJ 24 #### [facility] [address] [place] [address] Dr. Ramses Dumas TSHon 11-03-2022 TSH 0.667 uIU/mL Normal 0.358-3.740 [facility] Comment on above: Performed By: #### C VDTBH #### [facility] [address] [place] [address] Dr. Ramses Dumas PREG HCG QUALon 09-18-2022 , QUAL Negative Normal NEGATIVE [facility] Comment on above: Performed By: #### U KJ 24 #### [facility] [address] [place] [address] Dr. Ramses Dumas Covid-19 PCR ([facility])on 08-20 SARS-CoV-2 (COVID-19) RNA FRANCESCA+probe Ql (Unsp spec) Not detected Normal NOT DETECTED [facility] Comment on above: Result Comment: This test is not yet approved or cleared by the [place] FDA. When there are no FDA-approved or cleared tests available, and other criteria are met, FDA can make tests available under an emergency access mechanism called an Emergency Use Authorization (EUA). The EUA for this test is supported by the Community Outreach Director of Health and Human Service's (HHS's) declaration [...] SARS-CoV-2. Performed By: #### C VDTBH #### [facility] [address] [place] [address] Dr. Ramses Dumas CBC AUTO DIFFon 09-05-2022 BASO # 0.1 103/ul Normal 0.0-0.1 [facility] Comment on above: Performed By: #### B LDCX2 #### [facility] [address] [place] [address] Dr. Ramses Dumas Basophils/100 WBC (Bld) 0.7 % Normal 0.2-2.0 [facility] Comment on above: Performed By: #### B LDCX2 #### [facility] [address] [place] [address] Dr. Ramses Dumas EO # 0.2 103/ul Normal 0.0-0.7 [facility] Comment on above: Performed By: #### B LDCX2 #### [facility] [address] [place] [address] Dr. Ramses Dumas Eosinophils/100 WBC (Bld) 2.2 % Normal 0.9-7.0 [facility] Comment on above: Performed By: #### B LDCX2 #### [facility] [address] [place] [address] Dr. Ramses Dumas Erythrocyte distribution width (RBC) [Ratio] 13.9 % Normal 11.0-15.0 [facility] Comment on above: Performed By: #### B LDCX2 #### [facility] [address] [place] [address] Dr. Ramses Dumas Hematocrit (Bld) [Volume fraction] 38.8 % Normal 36.0-48.0 [facility] Comment on above: Performed By: #### B LDCX2 #### [facility] [address] [place] [address] Dr. Ramses Dumas Hemoglobin (Bld) [Mass/Vol] 12.6 g/dL Normal 12.0-16.0 [facility] Comment on above: Performed By: #### B LDCX2 #### [facility] [address] [place] [address] Dr. Ramses Dumas IG # 0.03 10e3/ul Normal 0.00-0.03 [facility] Comment on above: Performed By: #### B LDCX2 #### [facility] [address] [place] [address] Dr. Ramses Dumas IG % 0.3 % Normal 0.0-0.5 [facility] Comment on above: Performed By: #### B LDCX2 #### [facility] [address] [place] [address] Dr. Ramses Dumas LYMPH # 2.3 103/ul Normal 1.2-3.8 [facility] Comment on above: Performed By: #### B LDCX2 #### [facility] [address] [place] [address] Dr. Ramses Dumas Lymphocytes/100 WBC (Bld) 21.3 % Normal 20.5-60.0 [facility] Comment on above: Performed By: #### B LDCX2 #### [facility] [address] [place] [address] Dr. Ramses Dumas MANUAL DIFF REQ NO Normal [facility] Comment on above: Performed By: #### B LDCX2 #### [facility] [address] [place] [address] Dr. Ramses Dumas MCH (RBC) [Entitic mass] 26.4 pg Critically low 26.7-34.0 [facility] Comment on above: Performed By: #### B LDCX2 #### [facility] [address] [place] [address] Dr. Ramses Dumas MCHC (RBC) [Mass/Vol] 32.5 g/dL Normal 29.9-35.2 [facility] Comment on above: Performed By: #### B LDCX2 #### [facility] [address] [place] [address] Dr. Ramses Dumas MCV (RBC) [Entitic vol] 81.2 fL Normal 81.0-99.0 [facility] Comment on above: Performed By: #### B LDCX2 #### [facility] [address] [place] [address] Dr. Ramses Dumas MONO # 0.8 103/ul Normal 0.3-0.8 [facility] Comment on above: Performed By: #### B LDCX2 #### [facility] [address] [place] [address] Dr. Ramses Dumas Monocytes/100 WBC (Bld) 7.4 % Normal 1.7-12.0 [facility] Comment on above: Performed By: #### B LDCX2 #### [facility] [address] [place] [address] Dr. Ramses Dumas NEUT # 7.3 103/ul Critically high 1.4-6.5 [facility] Comment on above: Performed By: #### B LDCX2 #### [facility] [address] [place] [address] Dr. Ramses Dumas Neutrophils/100 WBC (Bld) 68.1 % Normal 43.0-75.0 [facility] Comment on above: Performed By: #### B LDCX2 #### [facility] [address] [place] [address] Dr. Ramses Dumas Platelet mean volume (Bld) [Entitic vol] 8.8 fL Critically low 9.5-13.5 [facility] Comment on above: Performed By: #### B LDCX2 #### [facility] [address] [place] [address] Dr. Ramses Dumas PLT 323 103/ul Normal 150-450 [facility] Comment on above: Performed By: #### B LDCX2 #### [facility] [address] [place] [address] Dr. Ramses Dumas RBC 4.78 106/ul Normal 4.20-5.40 [facility] Comment on above: Performed By: #### B LDCX2 #### [facility] [address] [place] [address] Dr. Ramses Dumas WBC 10.7 103/ul Normal 4.0-11.0 [facility] Comment on above: Performed By: #### B LDCX2 #### [facility] [address] [place] [address] Dr. Ramses Dumas CULTURE URINEon 09-05-2022 CULTURE URINE Culture Observations : LIGHT GROWTH OF MIXED GENITAL DAIANA. NO POTENTIAL PATHOGENS SEEN. Normal [facility] Comment on above: Performed By: #### U RCX #### [facility] [address] [place] [address] Dr. Ramses Dumas ER URINE PROFILEon 2 Bilirubin Ql (U) Negative Normal NEGATIVE [facility] Comment on above: Performed By: #### B [id number] #### [facility] [address] [place] [address] Dr. Ramses Dumas Clarity (U) CLOUDY Abnormal CLEAR [facility] Comment on above: Performed By: #### B LDCX2 #### [facility] [address] [place] [address] Dr. Ramses Dumas Color (U) YELLOW Normal YELLOW [facility] Comment on above: Performed By: #### B LDCX2 #### [facility] [address] [place] [address] Dr. Ramses Dumas ERUAHD A micrscopic examination will be performed if indicated. Normal [facility] Comment on above: Performed By: #### B [id number] #### [facility] [address] [place] [address] Dr. Ramses Dumas Glucose Ql (U) Negative Normal NEGATIVE [facility] Comment on above: Performed By: #### B [id number] #### [facility] [address] [place] [address] Dr. Ramses Dumas Hemoglobin Ql (U) LARGE Abnormal NEGATIVE [facility] Comment on above: Performed By: #### B [id number] #### [facility] [address] [place] [address] Dr. Ramses Dumas Ketones Ql (U) Negative Normal NEGATIVE [facility] Comment on above: Performed By: #### B [id number] #### [facility] [address] [place] [address] Dr. Ramses Dumas LEUKOCYTES SMALL Abnormal NEGATIVE [facility] Comment on above: Performed By: #### B [id number] #### [facility] [address] [place] [address] Dr. Ramses Dumas Nitrite Ql (U) Negative Normal NEGATIVE [facility] Comment on above: Performed By: #### B [id number] #### [facility] [address] [place] [address] Dr. Ramses Dumas pH (U) 6.0 [pH] Normal 5-9 [facility] Comment on above: Performed By: #### B [id number] #### [facility] [address] [place] [address] Dr. Ramses Dumas Protein (U) [Mass/Vol] 100 mg/dL Abnormal NEGAT CHRIS/ TRACE [facility] Comment on above: Performed By: #### B [id number] #### [facility] [address] [place] [address] Dr. Ramses Dumas SPEC GRAVITY >=1.030 Abnormal 1.005-<=1.02 5 [facility] Comment on above: Performed By: #### B [id number] #### [facility] [address] [place] [address] Dr. Ramses Dumas UR MICRO IND INDICATED Normal [facility] Comment on above: Performed By: #### B [id number] #### [facility] [address] [place] [address] Dr. Ramses Dumas Urobilinogen Qn (U) 0.2 {Lucero'U}/dL Normal 0.2 - 1. 0 [facility] Comment on above: Performed By: #### B [id number] #### [facility] [address] [place] [address] Dr. Ramses Dumas URon 09-05-2022 , QUAL Negative Normal NEGATIVE [facility] Comment on above: Performed By: #### B [id number] #### [facility] [address] [place] [address] Dr. Ramses Dumas PROF CHEM 8 (BAS METB)on Anion gap [Moles/Vol] 11.7 mmol/L Normal [facility] Comment on above: Performed By: #### C MP #### [facility] [address] [place] [address] Dr. Ramses Dumas Calcium [Mass/Vol] 9.1 mg/dL Normal 8.5-10.1 [facility] Comment on above: Performed By: #### C MP #### [facility] [address] [place] [address] Dr. Ramses Dumas Chloride [Moles/Vol] 103 mmol/L Normal 98-107 [facility] Comment on above: Performed By: #### C MP #### [facility] [address] [place] [address] Dr. Ramses Dumas CO2 [Moles/Vol] 25.9 mmol/L Normal 21.0-32.0 [facility] Comment on above: Performed By: #### C MP #### [facility] [address] [place] [address] Dr. Ramses Dumas Creatinine [Mass/Vol] 0.77 mg/dL Normal 0.55-1.02 [facility] Comment on above: Performed By: #### C MP #### [facility] [address] [place] [address] Dr. Ramses Dumas EGFR-AF DJIBOUTIAN >60 Normal >=60 [facility] Comment on above: Performed By: #### C MP #### [facility] [address] [place] [address] Dr. Ramses Dumas EGFR-NON AF DJIBOUTIAN >60 Normal >=60 [facility] Comment on above: Performed By: #### C MP #### [facility] [address] [address] [address] Ramses Dumas Glucose [Mass/Vol] 124 mg/dL Critically high 74-106 [facility] Comment on above: Performed By: #### C MP #### [facility] [address] [place] [address] Dr. Ramses Dumas Potassium [Moles/Vol] 3.6 mmol/L Normal 3.5-5.1 [facility] Comment on above: Performed By: #### C MP #### [facility] [address] [place] [address] Dr. Ramses Dumas Sodium [Moles/Vol] 137 mmol/L Normal 136-145 [facility] Comment on above: Performed By: #### C MP #### [facility] [address] [place] [address] Dr. Ramses Dumas Urea nitrogen [Mass/Vol] 12.0 mg/dL Normal 7.0-18.0 [facility] Comment on above: Performed By: #### C MP #### [facility] [address] [place] [address] Dr. Ramses Dumas Urea nitrogen/Creatinine [Mass ratio] 15.6 mg/mg Normal [facility] Comment on above: Performed By: #### C MP #### [facility] [address] [place] [address] Dr. Ramses Dumas URINE MICROSCOPIC ONLYon AMORPHOUS CRYSTALS RARE Normal [facility] Comment on above: Performed By: #### B [id number] #### [facility] [address] [place] [address] Dr. Ramses Dumas BACTERIA TRACE Abnormal NONE SEEN [facility] Comment on above: Performed By: #### B [id number] #### [facility] [address] [place] [address] Dr. Ramses Dumas Bacteria identified Cx Nom (U) INDICATED Normal [facility] Comment on above: Performed By: #### B [id number] #### [facility] [address] [place] [address] Dr. Ramses Dumas CA OX CRYSTALS RARE Normal [facility] Comment on above: Performed By: #### B [id number] #### [facility] [address] [place] [address] Dr. Ramses Dumas CAST NONE SEEN Normal NONE SEEN [facility] Comment on above: Performed By: #### B [id number] #### [facility] [address] [place] [address] Dr. Ramses Dumas Crystals LM Nom (Urine sed) SEEN Abnormal NONE SEEN [facility] Comment on above: Performed By: #### B [id number] #### [facility] [address] [place] [address] Dr. Ramses Dumas Epithelial cells LM Ql (Urine sed) FEW Abnormal NONE SEEN /RARE [facility] Comment on above: Performed By: #### B [id number] #### [facility] [address] [place] [address] Dr. Ramses Dumas MUCOUS TRACE Abnormal NONE SEEN [facility] Comment on above: Performed By: #### B [id number] #### [facility] [address] [place] [address] Dr. Ramses Dumas RBC 50-75 Abnormal 0-2 [facility] Comment on above: Performed By: #### B [id number] #### [facility] [address] [place] [address] Dr. Ramses Dumas WBC 20-50 Abnormal NONE SEEN [facility] Comment on above: Performed By: #### B [id number] #### [facility] [address] [place] [address] Dr. Ramses Dumas YEAST PRESENT Abnormal NONE SEEN [facility] Comment on above: Performed By: #### B [id number] #### [facility] [address] [place] [address] Dr. Ramses Dumas US KIDNEYSon 09-05-2022 US [...] by: GLEN GRAFF Date: 2022-09-05 11:00 Normal [facility] CT ABD/PELVIS WO CONon 08-29 CT [...] ERICKA IGLESIAS Date: 2022-08-29 01:10 Normal [facility] CULTURE URINEon 08-29-2022 CULTURE URINE Culture Observations : LIGHT GROWTH OF MIXED GENITAL DAIANA. NO POTENTIAL PATHOGENS SEEN. Normal [facility] Comment on above: Performed By: #### U RCX #### [facility] [address] [place] [address] Dr. Ramses Dumas CBC AUTO DIFFon 08-28-2022 BASO # 0.1 103/ul Normal 0.0-0.1 [facility] Comment on above: Performed By: #### U RCX #### [facility] [address] [place] [address] Dr. Ramses Dumas Basophils/100 WBC (Bld) 0.5 % Normal 0.2-2.0 [facility] Comment on above: Performed By: #### U RCX #### [facility] [address] [place] [address] Dr. Ramses Dumas EO # 0.3 103/ul Normal 0.0-0.7 [facility] Comment on above: Performed By: #### U RCX #### [facility] [address] [place] [address] Dr. Ramses Dumas Eosinophils/100 WBC (Bld) 2.3 % Normal 0.9-7.0 [facility] Comment on above: Performed By: #### U RCX #### [facility] [address] [place] [address] Dr. Ramses Dumas Erythrocyte distribution width (RBC) [Ratio] 13.7 % Normal 11.0-15.0 [facility] Comment on above: Performed By: #### U RCX #### [facility] [address] [place] [address] Dr. Ramses Dumas Hematocrit (Bld) [Volume fraction] 36.7 % Normal 36.0-48.0 [facility] Comment on above: Performed By: #### U RCX #### [facility] [address] [place] [address] Dr. Ramses Dumas Hemoglobin (Bld) [Mass/Vol] 12.3 g/dL Normal 12.0-16.0 [facility] Comment on above: Performed By: #### U RCX #### [facility] [address] [place] [address] Dr. Ramses Dumas IG # 0.16 10e3/ul Critically high 0.00-0.03 [facility] Comment on above: Performed By: #### U RCX #### [facility] [address] [place] [address] Dr. Ramses Dumas IG % 1.1 % Critically high 0.0-0.5 [facility] Comment on above: Performed By: #### U RCX #### [facility] [address] [place] [address] Dr. Ramses Dumas LYMPH # 4.6 103/ul Critically high 1.2-3.8 [facility] Comment on above: Performed By: #### U RCX #### [facility] [address] [place] [address] Dr. Ramses Dumas Lymphocytes/100 WBC (Bld) 31.8 % Normal 20.5-60.0 [facility] Comment on above: Performed By: #### U RCX #### [facility] [address] [place] [address] Dr. Ramses Dumas MANUAL DIFF REQ NO Normal [facility] Comment on above: Performed By: #### U RCX #### [facility] [address] [place] [address] Dr. Ramses Dumas MCH (RBC) [Entitic mass] 26.9 pg Normal 26.7-34.0 [facility] Comment on above: Performed By: #### U RCX #### [facility] [address] [place] [address] Dr. Ramses Dumas MCHC (RBC) [Mass/Vol] 33.5 g/dL Normal 29.9-35.2 [facility] Comment on above: Performed By: #### U RCX #### [facility] [address] [place] [address] Dr. Ramses Dumas MCV (RBC) [Entitic vol] 80.3 fL Critically low 81.0-99.0 [facility] Comment on above: Performed By: #### U RCX #### [facility] [address] [place] [address] Dr. Ramses Dumas MONO # 1.0 103/ul Critically high 0.3-0.8 [facility] Comment on above: Performed By: #### U RCX #### [facility] [address] [place] [address] Dr. Ramses Dumas Monocytes/100 WBC (Bld) 7.0 % Normal 1.7-12.0 [facility] Comment on above: Performed By: #### U RCX #### [facility] [address] [place] [address] Dr. Ramses Dumas NEUT # 8.2 103/ul Critically high 1.4-6.5 [facility] Comment on above: Performed By: #### U RCX #### [facility] [address] [place] [address] Dr. Ramses Dumas Neutrophils/100 WBC (Bld) 57.3 % Normal 43.0-75.0 [facility] Comment on above: Performed By: #### U RCX #### [facility] [address] [place] [address] Dr. Ramses Dumas Platelet mean volume (Bld) [Entitic vol] 8.6 fL Critically low 9.5-13.5 [facility] Comment on above: Performed By: #### U RCX #### [facility] [address] [place] [address] Dr. Ramses Dumas PLT 395 103/ul Normal 150-450 [facility] Comment on above: Performed By: #### U RCX #### [facility] [address] [place] [address] Dr. Ramses Dumas RBC 4.57 106/ul Normal 4.20-5.40 [facility] Comment on above: Performed By: #### U RCX #### [facility] [address] [place] [address] Dr. Ramses Dumas WBC 14.3 103/ul Critically high 4.0-11.0 [facility] Comment on above: Performed By: #### U RCX #### [facility] [address] [place] [address] Dr. Ramses Dumas ER URINE PROFILEon 2 Bilirubin Ql (U) Negative Normal NEGATIVE [facility] Comment on above: Performed By: #### U KJ 24 #### [facility] [address] [place] [address] Dr. Ramses Dumas Clarity (U) CLEAR Normal CLEAR [facility] Comment on above: Performed By: #### U KJ 24 #### [facility] [address] [place] [address] Dr. Ramses Dumas Color (U) LT. YELLOW Normal YELLOW [facility] Comment on above: Performed By: #### U KJ 24 #### [facility] [address] [place] [address] Dr. Ramses Dumas ERUWalter A micrscopic examination will be performed if indicated. Normal [facility] Comment on above: Performed By: #### U KJ 24 #### [facility] [address] [place] [address] Dr. Ramses Dumas Glucose Ql (U) Negative Normal NEGATIVE [facility] Comment on above: Performed By: #### U KJ 24 #### [facility] [address] [place] [address] Dr. Ramses Dumas Hemoglobin Ql (U) LARGE Abnormal NEGATIVE [facility] Comment on above: Performed By: #### U KJ 24 #### [facility] [address] [place] [address] Dr. Ramses Dumas Ketones Ql (U) Negative Normal NEGATIVE [facility] Comment on above: Performed By: #### U KJ 24 #### [facility] [address] [place] [address] Dr. Ramses Dumas LEUKOCYTES MODERATE Abnormal NEGATIVE [facility] Comment on above: Performed By: #### U KJ 24 #### [facility] [address] [place] [address] Dr. Ramses Dumas Nitrite Ql (U) Negative Normal NEGATIVE [facility] Comment on above: Performed By: #### U KJ 24 #### [facility] [address] [place] [address] Dr. Ramses Dumas pH (U) 6.5 [pH] Normal 5-9 [facility] Comment on above: Performed By: #### U KJ 24 #### [facility] [address] [place] [address] Dr. Ramses Dumas Protein (U) [Mass/Vol] 100 mg/dL Abnormal NEGAT CHRIS/ TRACE [facility] Comment on above: Performed By: #### U KJ 24 #### [facility] [address] [place] [address] Dr. Ramses Dumas SPEC GRAVITY 1.020 Normal 1.005-<=1.02 5 [facility] Comment on above: Performed By: #### U KJ 24 #### [facility] [address] [place] [address] Dr. Ramses Dumas UR MICRO IND INDICATED Normal [facility] Comment on above: Performed By: #### U KJ 24 #### [facility] [address] [place] [address] Dr. Ramses Dumas Urobilinogen Qn (U) 0.2 {Lucero'U}/dL Normal 0.2 - 1. 0 [facility] Comment on above: Performed By: #### U KJ 24 #### [facility] [address] [place] [address] Dr. Ramses Dumas PROF 14(COMP METB)on 022 Albumin [Mass/Vol] 3.3 g/dL Critically low 3.4-5.0 [facility] Comment on above: Performed By: #### C MP #### [facility] [address] [place] [address] Dr. Ramses Dumas Albumin/Globulin [Mass ratio] 0.8 {ratio} Normal [facility] Comment on above: Performed By: #### C MP #### [facility] [address] [address] [address] Ramses Dumas ALP [Catalytic activity/Vol] 108 U/L Normal 46-116 [facility] Comment on above: Performed By: #### C MP #### [facility] [address] [address] [address] Ramses Dumas ALT [Catalytic activity/Vol] 103 U/L Critically high 14-59 [facility] Comment on above: Performed By: #### C MP #### [facility] [address] [address] [address] Ramses Dumas Anion gap [Moles/Vol] 6.6 mmol/L Normal [facility] Comment on above: Performed By: #### C MP #### [facility] [address] [address] [address] Ramses Dumas AST [Catalytic activity/Vol] 21 U/L Normal 15-37 [facility] Comment on above: Performed By: #### C MP #### [facility] [address] [place] [address] Dr. Ramses Dumas Bilirubin [Mass/Vol] 0.2 mg/dL Normal 0.2-1.0 [facility] Comment on above: Performed By: #### C MP #### [facility] [address] [address] [address] Ramses Dumas Calcium [Mass/Vol] 9.2 mg/dL Normal 8.5-10.1 [facility] Comment on above: Performed By: #### C MP #### [facility] [address] [place] [address] Dr. Ramses Dumas Chloride [Moles/Vol] 102 mmol/L Normal 98-107 [facility] Comment on above: Performed By: #### C MP #### [facility] [address] [address] [address] Ramses Dumas CO2 [Moles/Vol] 28.8 mmol/L Normal 21.0-32.0 [facility] Comment on above: Performed By: #### C MP #### [facility] [address] [place] [address] Dr. Ramses Dumas Creatinine [Mass/Vol] 0.92 mg/dL Normal 0.55-1.02 [facility] Comment on above: Performed By: #### C MP #### [facility] [address] [place] [address] Dr. Ramses Dumas EGFR-AF DJIBOUTIAN >60 Normal >=60 [facility] Comment on above: Performed By: #### C MP #### [facility] [address] [address] [address] Ramses Dumas EGFR-NON AF DJIBOUTIAN >60 Normal >=60 [facility] Comment on above: Performed By: #### C MP #### [facility] [address] [place] [address] Dr. Ramses Dumas Globulin (S) [Mass/Vol] 4.1 g/dL Normal [facility] Comment on above: Performed By: #### C MP #### [facility] [address] [address] [address] Ramses Dumas Glucose [Mass/Vol] 114 mg/dL Critically high 74-106 [facility] Comment on above: Performed By: #### C MP #### [facility] [address] [place] [address] Dr. Ramses Dumas Potassium [Moles/Vol] 3.4 mmol/L Critically low 3.5-5.1 [facility] Comment on above: Performed By: #### C MP #### [facility] [address] [place] [address] Dr. Ramses Dumas Protein [Mass/Vol] 7.4 g/dL Normal 6.4-8.2 [facility] Comment on above: Performed By: #### C MP #### [facility] [address] [place] [address] Dr. Ramses Dumas Sodium [Moles/Vol] 134 mmol/L Critically low 136-145 [facility] Comment on above: Performed By: #### C MP #### [facility] [address] [place] [address] Dr. Ramses Dumas Urea nitrogen [Mass/Vol] 11.0 mg/dL Normal 7.0-18.0 [facility] Comment on above: Performed By: #### C MP #### [facility] [address] [place] [address] Dr. Ramses Dumas Urea nitrogen/Creatinine [Mass ratio] 12.0 mg/mg Normal [facility] Comment on above: Performed By: #### C MP #### [facility] [address] [place] [address] Dr. Ramses Dumas URINE MICROSCOPIC ONLYon BACTERIA MODERATE Abnormal NONE SEEN [facility] Comment on above: Performed By: #### U KJ 24 #### [facility] [address] [place] [address] Dr. Ramses Dumas Bacteria identified Cx Nom (U) INDICATED Normal [facility] Comment on above: Performed By: #### U KJ 24 #### [facility] [address] [place] [address] Dr. Ramses Dumas CAST NONE SEEN Normal NONE SEEN [facility] Comment on above: Performed By: #### U KJ 24 #### [facility] [address] [place] [address] Dr. Ramses Dumas Crystals LM Nom (Urine sed) NONE SEEN Normal NONE SEEN [facility] Comment on above: Performed By: #### U KJ 24 #### [facility] [address] [place] [address] Dr. Ramses Dumas Epithelial cells LM Ql (Urine sed) RARE Normal NONE SEEN /RARE [facility] Comment on above: Performed By: #### U KJ 24 #### [facility] [address] [place] [address] Dr. Ramses Dumas MUCOUS NONE SEEN Normal NONE SEEN [facility] Comment on above: Performed By: #### U KJ 24 #### [facility] [address] [place] [address] Dr. Ramses Dumas RBC 20-50 Abnormal 0-2 [facility] Comment on above: Performed By: #### U KJ 24 #### [facility] [address] [place] [address] Dr. Ramses Dumas WBC 5-10 Abnormal NONE SEEN [facility] Comment on above: Performed By: #### U KJ 24 #### [facility] [address] [address] [address] Ramses Dumas CULTURE BLOODon 08-25-2022 Microscopic [...] S F Tetracycline >=16 R F Normal [facility] Comment on above: Performed By: #### B LDCX2 #### [facility] [address] [place] [address] Dr. Ramses Dumas Microscopic examination of blood, [...] F Tetracycline >=16 R F Normal [facility] Comment on above: Performed By: #### C BC #### [facility] [address] [place] [address] Dr. Ramses Dumas CBC AUTO DIFFon 08-24-2022 BASO # 0.0 103/ul Normal 0.0-0.1 [facility] Comment on above: Performed By: #### C BC #### [facility] [address] [address] [address] Ramses Dumas Basophils/100 WBC (Bld) 0.1 % Critically low 0.2-2.0 [facility] Comment on above: Performed By: #### C BC #### [facility] [address] [place] [address] Dr. Ramses Dumas EO # 0.0 103/ul Normal 0.0-0.7 [facility] Comment on above: Performed By: #### C BC #### [facility] [address] [place] [address] Dr. Ramses Dumas Eosinophils/100 WBC (Bld) 0.0 % Critically low 0.9-7.0 [facility] Comment on above: Performed By: #### C BC #### [facility] [address] [place] [address] Dr. Ramses Dumas Erythrocyte distribution width (RBC) [Ratio] 13.5 % Normal 11.0-15.0 [facility] Comment on above: Performed By: #### C BC #### [facility] [address] [place] [address] Dr. Ramses Dumas Hematocrit (Bld) [Volume fraction] 33.0 % Critically low 36.0-48.0 [facility] Comment on above: Performed By: #### C BC #### [facility] [address] [place] [address] Dr. Ramses Dumas Hemoglobin (Bld) [Mass/Vol] 10.7 g/dL Critically low 12.0-16.0 [facility] Comment on above: Performed By: #### C BC #### [facility] [address] [place] [address] Dr. Ramses Dumas IG # 0.04 10e3/ul Critically high 0.00-0.03 [facility] Comment on above: Performed By: #### C BC #### [facility] [address] [place] [address] Dr. Ramses Dumas IG % 0.4 % Normal 0.0-0.5 [facility] Comment on above: Performed By: #### C BC #### [facility] [address] [address] [address] Ramses Dumas LYMPH # 0.8 103/ul Critically low 1.2-3.8 [facility] Comment on above: Performed By: #### C BC #### [facility] [address] [address] [address] Ramses Dumas Lymphocytes/100 WBC (Bld) 7.9 % Critically low 20.5-60.0 [facility] Comment on above: Performed By: #### C BC #### [facility] [address] [place] [address] Dr. Ramses Dumas MANUAL DIFF REQ NO Normal [facility] Comment on above: Performed By: #### C BC #### [facility] [address] [place] [address] Dr. Ramses Dumas MCH (RBC) [Entitic mass] 26.5 pg Critically low 26.7-34.0 [facility] Comment on above: Performed By: #### C BC #### [facility] [address] [place] [address] Dr. Ramses Dumas MCHC (RBC) [Mass/Vol] 32.4 g/dL Normal 29.9-35.2 [facility] Comment on above: Performed By: #### C BC #### [facility] [address] [place] [address] Dr. Ramses Dumas MCV (RBC) [Entitic vol] 81.7 fL Normal 81.0-99.0 [facility] Comment on above: Performed By: #### C BC #### [facility] [address] [place] [address] Dr. Ramses Dumas MONO # 0.6 103/ul Normal 0.3-0.8 [facility] Comment on above: Performed By: #### C BC #### [facility] [address] [place] [address] Dr. Ramses Dumas Monocytes/100 WBC (Bld) 6.3 % Normal 1.7-12.0 [facility] Comment on above: Performed By: #### C BC #### [facility] [id number] Ramses Dumas NEUT # 8.6 103/ul Critically high 1.4-6.5 [facility] Comment on above: Performed By: #### C BC #### [facility] [id number] Ramses Dumas Neutrophils/100 WBC (Bld) 85.3 % Critically high 43.0-75.0 [facility] Comment on above: Performed By: #### C BC #### [facility] [address] [address] [address] Ramses Dumas Platelet mean volume (Bld) [Entitic vol] 9.1 fL Critically low 9.5-13.5 [facility] Comment on above: Performed By: #### C BC #### [facility] [id number] Ramses Dumas PLT 248 103/ul Normal 150-450 [facility] Comment on above: Performed By: #### C BC #### [facility] [address] [address] [address] Ramses Dumas RBC 4.04 106/ul Critically low 4.20-5.40 [facility] Comment on above: Performed By: #### C BC #### [facility] [id number] Ramses Dumas WBC 10.1 103/ul Normal 4.0-11.0 [facility] Comment on above: Performed By: #### C BC #### [facility] [address] [place] [address] Dr. Ramses Dumas CULTURE URINEon 08-24-2022 CULTURE [...] S F Tetracycline >=16 R F Normal [facility] Comment on above: Performed By: #### U RCX #### [facility] [address] [place] [address] Dr. Ramses Dumas PROF 14(COMP METB)on 022 Albumin [Mass/Vol] 2.4 g/dL Critically low 3.4-5.0 Th [facility] Comment on above: Performed By: #### C VDTBH #### [facility] [address] [place] [address] Dr. Ramses Dumas Albumin/Globulin [Mass ratio] 0.7 {ratio} Normal [facility] Comment on above: Performed By: #### C VDTBH #### [facility] [address] [place] [address] Dr. Ramses Dumas ALP [Catalytic activity/Vol] 95 U/L Normal 46-116 [facility] Comment on above: Performed By: #### C VDTBH #### [facility] [address] [place] [address] Dr. Ramses Dumas ALT [Catalytic activity/Vol] 327 U/L Critically high 14-59 [facility] Comment on above: Performed By: #### C VDTBH #### [facility] [address] [place] [address] Dr. Ramses Dumas Anion gap [Moles/Vol] 8.7 mmol/L Normal [facility] Comment on above: Performed By: #### C VDTBH #### [facility] [address] [place] [address] Dr. Ramses Dumas AST [Catalytic activity/Vol] 165 U/L Critically high 15-37 [facility] Comment on above: Performed By: #### C VDTBH #### [facility] [address] [place] [address] Dr. Ramses Dumas Bilirubin [Mass/Vol] 0.4 mg/dL Normal 0.2-1.0 [facility] Comment on above: Performed By: #### C VDTBH #### [facility] [address] [address] [address] Ramses Dumas Calcium [Mass/Vol] 8.0 mg/dL Critically low 8.5-10.1 [facility] Comment on above: Performed By: #### C VDTBH #### [facility] [address] [place] [address] Dr. Ramses Dumas Chloride [Moles/Vol] 108 mmol/L Critically high 98-107 [facility] Comment on above: Performed By: #### C VDTBH #### [facility] [address] [place] [address] Dr. Ramses Dumas CO2 [Moles/Vol] 25.3 mmol/L Normal 21.0-32.0 [facility] Comment on above: Performed By: #### C VDTBH #### [facility] [address] [place] [address] Dr. Ramses Dumas Creatinine [Mass/Vol] 0.70 mg/dL Normal 0.55-1.02 [facility] Comment on above: Performed By: #### C VDTBH #### [facility] [address] [place] [address] Dr. Ramses Dumas EGFR-AF DJIBOUTIAN >60 Normal >=60 [facility] Comment on above: Performed By: #### C VDTBH #### [facility] [address] [place] [address] Dr. Ramses Dumas EGFR-NON AF DJIBOUTIAN >60 Normal >=60 [facility] Comment on above: Performed By: #### C VDTBH #### [facility] [address] [place] [address] Dr. Ramses Dumas Globulin (S) [Mass/Vol] 3.6 g/dL Normal [facility] Comment on above: Performed By: #### C VDTBH #### [facility] [address] [place] [address] Dr. Ramses Dumas Glucose [Mass/Vol] 160 mg/dL Critically high 74-106 [facility] Comment on above: Performed By: #### C VDTBH #### [facility] [address] [place] [address] Dr. Ramses Dumas Potassium [Moles/Vol] 4.0 mmol/L Normal 3.5-5.1 [facility] Comment on above: Performed By: #### C VDTBH #### [facility] [address] [place] [address] Dr. Ramses Dumas Protein [Mass/Vol] 6.0 g/dL Critically low 6.4-8.2 [facility] Comment on above: Performed By: #### C VDTBH #### [facility] [address] [place] [address] Dr. Ramses Dumas Sodium [Moles/Vol] 138 mmol/L Normal 136-145 [facility] Comment on above: Performed By: #### C VDTBH #### [facility] [address] [place] [address] Dr. Ramses Dumas Urea nitrogen [Mass/Vol] 6.0 mg/dL Critically low 7.0-18.0 [facility] Comment on above: Performed By: #### C VDTBH #### [facility] [address] [place] [address] Dr. Ramses Dumas Urea nitrogen/Creatinine [Mass ratio] 8.6 mg/mg Normal [facility] Comment on above: Performed By: #### C VDTBH #### [facility] [address] [place] [address] Dr. Ramses Dumas CBC AUTO DIFFon 08-23-2022 BASO # 0.0 103/ul Normal 0.0-0.1 [facility] Comment on above: Performed By: #### U RCX #### [facility] [address] [place] [address] Dr. Ramses Dumas Basophils/100 WBC (Bld) 0.2 % Normal 0.2-2.0 [facility] Comment on above: Performed By: #### U RCX #### [facility] [address] [place] [address] Dr. Ramses Dumas EO # 0.0 103/ul Normal 0.0-0.7 [facility] Comment on above: Performed By: #### U RCX #### [facility] [address] [address] [address] Ramses Dumas Eosinophils/100 WBC (Bld) 0.1 % Critically low 0.9-7.0 [facility] Comment on above: Performed By: #### U RCX #### [facility] [address] [place] [address] Dr. Ramses Dumas Erythrocyte distribution width (RBC) [Ratio] 13.4 % Normal 11.0-15.0 [facility] Comment on above: Performed By: #### U RCX #### [facility] [address] [place] [address] Dr. Ramses Dumas Hematocrit (Bld) [Volume fraction] 34.1 % Critically low 36.0-48.0 [facility] Comment on above: Performed By: #### U RCX #### [facility] [address] [place] [address] Dr. Ramses Dumas Hemoglobin (Bld) [Mass/Vol] 10.9 g/dL Critically low 12.0-16.0 [facility] Comment on above: Performed By: #### U RCX #### [facility] [address] [place] [address] Dr. Ramses Dumas IG # 0.02 10e3/ul Normal 0.00-0.03 [facility] Comment on above: Performed By: #### U RCX #### [facility] [address] [place] [address] Dr. Ramses Dumas IG % 0.2 % Normal 0.0-0.5 [facility] Comment on above: Performed By: #### U RCX #### [facility] [address] [place] [address] Dr. Ramses Dumas LYMPH # 0.7 103/ul Critically low 1.2-3.8 [facility] Comment on above: Performed By: #### U RCX #### [facility] [address] [place] [address] Dr. Ramses Dumas Lymphocytes/100 WBC (Bld) 6.9 % Critically low 20.5-60.0 [facility] Comment on above: Performed By: #### U RCX #### [facility] [address] [address] [address] Ramses Dumas MANUAL DIFF REQ NO Normal [facility] Comment on above: Performed By: #### U RCX #### [facility] [address] [place] [address] Dr. Ramses Dumas MCH (RBC) [Entitic mass] 26.1 pg Critically low 26.7-34.0 [facility] Comment on above: Performed By: #### U RCX #### [facility] [address] [place] [address] Dr. Ramses Dumas MCHC (RBC) [Mass/Vol] 32.0 g/dL Normal 29.9-35.2 [facility] Comment on above: Performed By: #### U RCX #### [facility] [address] [place] [address] Dr. Ramses Dumas MCV (RBC) [Entitic vol] 81.8 fL Normal 81.0-99.0 [facility] Comment on above: Performed By: #### U RCX #### [facility] [address] [place] [address] Dr. Ramses Dumas MONO # 0.6 103/ul Normal 0.3-0.8 [facility] Comment on above: Performed By: #### U RCX #### [facility] [address] [place] [address] Dr. Ramses Dumas Monocytes/100 WBC (Bld) 5.9 % Normal 1.7-12.0 [facility] Comment on above: Performed By: #### U RCX #### [facility] [address] [place] [address] Dr. Ramses Dumas NEUT # 8.2 103/ul Critically high 1.4-6.5 [facility] Comment on above: Performed By: #### U RCX #### [facility] [address] [place] [address] Dr. Ramses Dumas Neutrophils/100 WBC (Bld) 86.7 % Critically high 43.0-75.0 [facility] Comment on above: Performed By: #### U RCX #### [facility] [address] [address] [address] Ramses Dumas Platelet mean volume (Bld) [Entitic vol] 9.4 fL Critically low 9.5-13.5 [facility] Comment on above: Performed By: #### U RCX #### [facility] [address] [address] [address] Ramses Dumas PLT 235 103/ul Normal 150-450 [facility] Comment on above: Performed By: #### U RCX #### [facility] [address] [address] [address] Ramses Dumas RBC 4.17 106/ul Critically low 4.20-5.40 [facility] Comment on above: Performed By: #### U RCX #### [facility] [address] [place] [address] Dr. Ramses Dumas WBC 9.5 103/ul Normal 4.0-11.0 [facility] Comment on above: Performed By: #### U RCX #### [facility] [address] [place] [address] Dr. Ramses Dumas PROF 14(COMP METB)on 022 Albumin [Mass/Vol] 2.6 g/dL Critically low 3.4-5.0 [facility] Comment on above: Performed By: #### U KJ 24 #### [facility] [address] [place] [address] Dr. Ramses Dumas Albumin/Globulin [Mass ratio] 0.8 {ratio} Normal [facility] Comment on above: Performed By: #### U KJ 24 #### [facility] [address] [address] [address] Ramses Dumas ALP [Catalytic activity/Vol] 82 U/L Normal 46-116 [facility] Comment on above: Performed By: #### U KJ 24 #### [facility] [address] [place] [address] Dr. Ramses Dumas ALT [Catalytic activity/Vol] 257 U/L Critically high 14-59 [facility] Comment on above: Performed By: #### U KJ 24 #### [facility] [address] [address] [address] Ramses Dumas Anion gap [Moles/Vol] 10.3 mmol/L Normal [facility] Comment on above: Performed By: #### U KJ 24 #### [facility] [address] [address] [address] Ramses Dumas AST [Catalytic activity/Vol] 196 U/L Critically high 15-37 [facility] Comment on above: Performed By: #### U KJ 24 #### [facility] [address] [address] [address] Ramses Dumas Bilirubin [Mass/Vol] 0.5 mg/dL Normal 0.2-1.0 [facility] Comment on above: Performed By: #### U KJ 24 #### [facility] [address] [place] [address] Dr. Ramses Dumas Calcium [Mass/Vol] 7.8 mg/dL Critically low 8.5-10.1 [facility] Comment on above: Performed By: #### U KJ 24 #### [facility] [address] [place] [address] Dr. Ramses Dumas Chloride [Moles/Vol] 104 mmol/L Normal 98-107 [facility] Comment on above: Performed By: #### U KJ 24 #### [facility] [address] [place] [address] Dr. Ramses Dumas CO2 [Moles/Vol] 24.4 mmol/L Normal 21.0-32.0 [facility] Comment on above: Performed By: #### U KJ 24 #### [facility] [address] [place] [address] Dr. Ramses Dumas Creatinine [Mass/Vol] 1.09 mg/dL Critically high 0.55-1.02 [facility] Comment on above: Performed By: #### U KJ 24 #### [facility] [address] [address] [address] Ramses Dumas EGFR-AF DJIBOUTIAN >60 Normal >=60 [facility] Comment on above: Performed By: #### U KJ 24 #### [facility] [address] [address] [address] Ramses Dumas EGFR-NON AF DJIBOUTIAN 59 mL/min/1.73m2 Critically low >=60 [facility] Comment on above: Performed By: #### U KJ 24 #### [facility] [address] [address] [address] Ramses Dumas Globulin (S) [Mass/Vol] 3.3 g/dL Normal [facility] Comment on above: Performed By: #### U KJ 24 #### [facility] [address] [address] [address] Ramses Dumas Glucose [Mass/Vol] 143 mg/dL Critically high 74-106 [facility] Comment on above: Performed By: #### U KJ 24 #### [facility] [address] [address] [address] Ramses Dumas Potassium [Moles/Vol] 3.7 mmol/L Normal 3.5-5.1 [facility] Comment on above: Performed By: #### U KJ 24 #### [facility] [address] [address] [address] Ramses Dumas Protein [Mass/Vol] 5.9 g/dL Critically low 6.4-8.2 [facility] Comment on above: Performed By: #### U KJ 24 #### [facility] [address] [place] [address] Dr. Ramses Dumas Sodium [Moles/Vol] 135 mmol/L Critically low 136-145 [facility] Comment on above: Performed By: #### U KJ 24 #### [facility] [address] [address] [address] Ramses Dumas Urea nitrogen [Mass/Vol] 10.0 mg/dL Normal 7.0-18.0 [facility] Comment on above: Performed By: #### U KJ 24 #### [facility] [address] [address] [address] Ramses Dumas Urea nitrogen/Creatinine [Mass ratio] 9.2 mg/mg [facility] Comment on above: Performed By: #### U KJ 24 #### [facility] [address] [place] [address] Dr. Ramses Dumas BLOOD CULTURE ID PANELon A. baumannii Not detected Normal NOT DETECTED [facility] Comment on above: Performed By: #### C VDTBH #### [facility] [address] [place] [address] Dr. Ramses Dumas Bacteriodes fragilis Not detected Normal NOT DETECTED [facility] Comment on above: Performed By: #### C VDTBH #### [facility] [address] [place] [address] Dr. Ramses SHEPPARDD CONTROLS PASSED Normal [facility] Comment on above: Performed By: #### C VDTBH #### [facility] [address] [place] [address] Dr. Ramses SHEPPARDDBTHD BLOOD CULTURE BOTTLE INFORMATION Normal [facility] Comment on above: Performed By: #### C VDTBH #### [facility] [address] [place] [address] Dr. Ramses SHEPPARDDHD1 ANTIMICROBIAL RESISTANCE GENES Normal [facility] Comment on above: Performed By: #### C VDTBH #### [facility] [address] [place] [address] Dr. Ramses SHEPPARDDHD2 SEE BELOW Normal [facility] Comment on above: Result Comment: Note : Antimicrobial resitance can occur via multiple mechanisms. A Not Detected result for the [employer] antomicrobial resistance gene assays does not indicate antimicrobial susceptibility. Subculturing is required for species identification and susceptibility testing of isolates. Performed By: #### C VDTBH #### [facility] [address] [place] [address] Dr. Ramses SHEPPARDDHD3 Positive Normal [facility] Comment on above: Performed By: #### C VDTBH #### [facility] [address] [place] [address] Dr. Ramses SHEPPARDDHD4 Negative Normal [facility] Comment on above: Performed By: #### C VDTBH #### [facility] [address] [place] [address] Dr. Ramses SHEPPARDDHD5 YEAST Normal [facility] Comment on above: Performed By: #### C VDTBH #### [facility] [address] [place] [address] Dr. Ramses Garcia Set: Set 1 Normal [facility] Comment on above: Performed By: #### C VDTBH #### [facility] [address] [place] [address] Dr. Ramses Dumas Bottle: Pediatric Normal [facility] Comment on above: Performed By: #### C VDTBH #### [facility] [address] [place] [address] Dr. Ramses Dumas C. neoformans/gattii Not detected Normal NOT DETECTED [facility] Comment on above: Performed By: #### C VDTBH #### [facility] [address] [place] [address] Dr. Ramses Dumas Kim albicans Not detected Normal NOT DETECTED [facility] Comment on above: Performed By: #### C VDTBH #### [facility] [address] [place] [address] Dr. Ramses Dumas Kim auris Not detected Normal NOT DETECTED [facility] Comment on above: Performed By: #### C VDTBH #### [facility] [address] [place] [address] Dr. Ramses Dumas Kim glabrata Not detected Normal NOT DETECTED [facility] Comment on above: Performed By: #### C VDTBH #### [facility] [address] [place] [address] Dr. Ramses Dumas Kim Krusei Not detected Normal NOT DETECTED [facility] Comment on above: Performed By: #### C VDTBH #### [facility] [address] [place] [address] Dr. Ramses Dumas Kim Parapsilosis Not detected Normal NOT DETECTED [facility] Comment on above: Performed By: #### C VDTBH #### [facility] [address] [place] [address] Dr. Ramses Dumas Kim Tropicalis Not detected Normal NOT DETECTED [facility] Comment on above: Performed By: #### C VDTBH #### [facility] [address] [place] [address] Dr. Ramses Dumas CTX-M Resistant Gene Not Applicable Normal NOT DETECTE D [facility] Comment on above: Performed By: #### C VDTBH #### [facility] [address] [place] [address] Dr. Ramses Dumas E. Cloacae complex Not detected Normal NOT DETECTED [facility] Comment on above: Performed By: #### C VDTBH #### [facility] [address] [place] [address] Dr. Ramses Dumas E. faecalis Not detected Normal NOT DETECTED [facility] Comment on above: Performed By: #### C VDTBH #### [facility] [address] [place] [address] Dr. Ramses Dumas E. faecium Not detected Normal NOT DETECTED [facility] Comment on above: Performed By: #### C VDTBH #### [facility] [address] [place] [address] Dr. Ramses Dumas Enterobacteriaceae Not detected Normal NOT DETECTED [facility] Comment on above: Performed By: #### C VDTBH #### [facility] [address] [place] [address] Dr. Ramses Dumas Escherichia coli Not detected Normal NOT DETECTED [facility] Comment on above: Performed By: #### C VDTBH #### [facility] [address] [place] [address] Dr. Ramses Dumas H. influenzae Not detected Normal NOT DETECTED [facility] Comment on above: Performed By: #### C VDTBH #### [facility] [address] [place] [address] Dr. Ramses Dumas IMP Resistant Gene Not Applicable Normal NOT DETECTED [facility] Comment on above: Performed By: #### C VDTBH #### [facility] [address] [place] [address] Dr. Ramses Dumas K. oxytoca Not detected Normal NOT DETECTED [facility] Comment on above: Performed By: #### C VDTBH #### [facility] [address] [place] [address] Dr. Ramses Dumas K. pneumoniae Not detected Normal NOT DETECTED [facility] Comment on above: Performed By: #### C VDTBH #### [facility] [address] [place] [address] Dr. Ramses Dumas Klebsiella aerogenes Not detected Normal NOT DETECTED [facility] Comment on above: Performed By: #### C VDTBH #### [facility] [address] [place] [address] Dr. Ramses Dumas KPC Resistant Gene Not detected Normal NOT DETECTED [facility] Comment on above: Performed By: #### C VDTBH #### [facility] [address] [place] [address] Dr. Ramses Dumas List. monocytogenes Not detected Normal NOT DETECTED [facility] Comment on above: Performed By: #### C VDTBH #### [facility] [address] [place] [address] Dr. Ramses Dumas Mcr-1 Resistant Gene Not Applicable Normal NOT DETECTE D [facility] Comment on above: Performed By: #### C VDTBH #### [facility] [address] [place] [address] Dr. Ramses Dumas mecA/C Not Applicable Normal NOT DETECTED [facility] Comment on above: Performed By: #### C VDTBH #### [facility] [address] [place] [address] Dr. Ramses Dumas mecA/C MREJ Not Applicable Normal NOT DETECTED [facility] Comment on above: Performed By: #### C VDTBH #### [facility] [address] [place] [address] Dr. Ramses Dumas N. meningitidis Not detected Normal NOT DETECTED [facility] Comment on above: Performed By: #### C VDTBH #### [facility] [address] [place] [address] Dr. Ramses Dumas NDM Resistant Gene Not Applicable Normal NOT DETECTED [facility] Comment on above: Performed By: #### C VDTBH #### [facility] [address] [place] [address] Dr. Ramses Dumas Oxa-48-like Not Applicable Normal NOT DETECTED [facility] Comment on above: Performed By: #### C VDTBH #### [facility] [address] [place] [address] Dr. Ramses Dumas Proteus Not detected Normal NOT DETECTED [facility] Comment on above: Performed By: #### C VDTBH #### [facility] [address] [place] [address] Dr. Ramses Dumas Pseud. aeruginosa Not detected Normal NOT DETECTED [facility] Comment on above: Performed By: #### C VDTBH #### [facility] [address] [place] [address] Dr. Ramses Dumas S. maltophilia Not detected Normal NOT DETECTED [facility] Comment on above: Performed By: #### C VDTBH #### [facility] [address] [place] [address] Dr. Ramses Dumas Salmonella Not detected Normal NOT DETECTED [facility] Comment on above: Performed By: #### C VDTBH #### [facility] [address] [place] [address] Dr. Ramses Dumas Seratia marcescens Not detected Normal NOT DETECTED [facility] Comment on above: Performed By: #### C VDTBH #### [facility] [address] [place] [address] Dr. Ramses Dumas Site: unknown/not given Normal [facility] Comment on above: Performed By: #### C VDTBH #### [facility] [address] [place] [address] Dr. Ramses Dumas Stapphillip. aureus Not detected Normal NOT DETECTED [facility] Comment on above: Performed By: #### C VDTBH #### [facility] [address] [place] [address] Dr. Ramses Dumas Stapphillip. epidermidis Not detected Normal NOT DETECTED [facility] Comment on above: Performed By: #### C VDTBH #### [facility] [address] [place] [address] Dr. Ramses Dumas Stapphillip. lugdunensis Not detected Normal NOT DETECTED [facility] Comment on above: Performed By: #### C VDTBH #### [facility] [address] [place] [address] Dr. Ramses Dumas Staphylococcus Not detected Normal NOT DETECTED [facility] Comment on above: Performed By: #### C VDTBH #### [facility] [address] [place] [address] Dr. Ramses Dumas Strep. agalactiae Detected Critically abnormal NOT DETECTED [facility] Comment on above: Performed By: #### C VDTBH #### [facility] [address] [place] [address] Dr. Ramses Dumas Strep. pneumoniae Not detected Normal NOT DETECTED [facility] Comment on above: Performed By: #### C VDTBH #### [facility] [address] [place] [address] Dr. Ramses Dumas Strep. pyogenes Not detected Normal NOT DETECTED [facility] Comment on above: Performed By: #### C VDTBH #### [facility] [address] [place] [address] Dr. Ramses Dumas Streptococcus Detected Critically abnormal NOT DETECTED [facility] Comment on above: Performed By: #### C VDTBH #### [facility] [address] [place] [address] Dr. Ramses Dumas Efrain/B Resist. Gene Not detected Normal NOT DETECTED [facility] Comment on above: Performed By: #### C VDTBH #### [facility] [address] [place] [address] Dr. Ramses Dumas VIM Resistant Gene Not Applicable Normal NOT DETECTED [facility] Comment on above: Performed By: #### C VDTBH #### [facility] [address] [place] [address] Dr. Ramses Dumas CBC AUTO DIFFon 08-22-2022 BASO # 0.1 103/ul Normal 0.0-0.1 [facility] Comment on above: Performed By: #### U KJ 24 #### [facility] [address] [place] [address] Dr. Ramses Dumas Basophils/100 WBC (Bld) 0.7 % Normal 0.2-2.0 [facility] Comment on above: Performed By: #### U KJ 24 #### [facility] [address] [place] [address] Dr. Ramses Dumas EO # 0.1 103/ul Normal 0.0-0.7 [facility] Comment on above: Performed By: #### U KJ 24 #### [facility] [address] [place] [address] Dr. Ramses Dumas Eosinophils/100 WBC (Bld) 1.7 % Normal 0.9-7.0 [facility] Comment on above: Performed By: #### U KJ 24 #### [facility] [address] [place] [address] Dr. Ramses Dumas Erythrocyte distribution width (RBC) [Ratio] 13.2 % Normal 11.0-15.0 [facility] Comment on above: Performed By: #### U KJ 24 #### [facility] [address] [place] [address] Dr. Ramses Dumas Hematocrit (Bld) [Volume fraction] 39.8 % Normal 36.0-48.0 [facility] Comment on above: Performed By: #### U KJ 24 #### [facility] [address] [place] [address] Dr. Ramses Dumas Hemoglobin (Bld) [Mass/Vol] 12.9 g/dL Normal 12.0-16.0 [facility] Comment on above: Performed By: #### U KJ 24 #### [facility] [address] [place] [address] Dr. Ramses Dumas IG # 0.02 10e3/ul Normal 0.00-0.03 [facility] Comment on above: Performed By: #### U KJ 24 #### [facility] [address] [place] [address] Dr. Ramses Dumas IG % 0.2 % Normal 0.0-0.5 [facility] Comment on above: Performed By: #### U KJ 24 #### [facility] [address] [place] [address] Dr. Ramses Dumas LYMPH # 3.2 103/ul Normal 1.2-3.8 [facility] Comment on above: Performed By: #### U KJ 24 #### [facility] [address] [place] [address] Dr. Ramses Dumas Lymphocytes/100 WBC (Bld) 40.0 % Normal 20.5-60.0 [facility] Comment on above: Performed By: #### U KJ 24 #### [facility] [address] [place] [address] Dr. Ramses Dumas MANUAL DIFF REQ NO Normal [facility] Comment on above: Performed By: #### U KJ 24 #### [facility] [address] [place] [address] Dr. Ramses Dumas MCH (RBC) [Entitic mass] 26.6 pg Critically low 26.7-34.0 [facility] Comment on above: Performed By: #### U KJ 24 #### [facility] [address] [place] [address] Dr. Ramses Dumas MCHC (RBC) [Mass/Vol] 32.4 g/dL Normal 29.9-35.2 [facility] Comment on above: Performed By: #### U KJ 24 #### [facility] [address] [place] [address] Dr. Ramses Dumas MCV (RBC) [Entitic vol] 82.1 fL Normal 81.0-99.0 [facility] Comment on above: Performed By: #### U KJ 24 #### [facility] [address] [place] [address] Dr. Ramses Dumas MONO # 0.6 103/ul Normal 0.3-0.8 [facility] Comment on above: Performed By: #### U KJ 24 #### [facility] [address] [place] [address] Dr. Ramses Dumas Monocytes/100 WBC (Bld) 7.5 % Normal 1.7-12.0 [facility] Comment on above: Performed By: #### U KJ 24 #### [facility] [address] [place] [address] Dr. Ramses Dumas NEUT # 4.0 103/ul Normal 1.4-6.5 [facility] Comment on above: Performed By: #### U KJ 24 #### [facility] [address] [place] [address] Dr. Ramses Dumas Neutrophils/100 WBC (Bld) 49.9 % Normal 43.0-75.0 [facility] Comment on above: Performed By: #### U KJ 24 #### [facility] [address] [place] [address] Dr. Ramses Dumas Platelet mean volume (Bld) [Entitic vol] 9.3 fL Critically low 9.5-13.5 [facility] Comment on above: Performed By: #### U KJ 24 #### [facility] [address] [place] [address] Dr. Ramses Dumas PLT 354 103/ul Normal 150-450 [facility] Comment on above: Performed By: #### U KJ 24 #### [facility] [address] [place] [address] Dr. Ramses Dumas RBC 4.85 106/ul Normal 4.20-5.40 [facility] Comment on above: Performed By: #### U KJ 24 #### [facility] [address] [place] [address] Dr. Ramses Dumas WBC 8.1 103/ul Normal 4.0-11.0 [facility] Comment on above: Performed By: #### U KJ 24 #### [facility] [address] [place] [address] ABD/PELVIS WO CONon [...] KESHIA IRIZARRY Date: 2022-08-22 07:04 Normal [facility]on SARS-CoV-2 (COVID-19) RNA FRANCESCA+probe Ql (Unsp spec) Not detected Normal NOT DETECTED [facility] Comment on above: Result Comment: When [...] for this test is supported by the Community Outreach Director of Health and Human Service's declaration that [...] used). Performed By: #### C MP #### [facility] [address] [place] [address] Dr. Ramses Dumas ER URINE PROFILEon 2 Bilirubin Ql (U) Negative Normal NEGATIVE [facility] Comment on above: Performed By: #### U RCX #### [facility] [address] [place] [address] Dr. Ramses Dumas Clarity (U) CLEAR Normal CLEAR [facility] Comment on above: Performed By: #### U RCX #### [facility] [address] [place] [address] Dr. Ramses Dumas Color (U) LT. YELLOW Normal YELLOW [facility] Comment on above: Performed By: #### U RCX #### [facility] [address] [place] [address] Dr. Ramses DELEON A micrscopic examination will be performed if indicated. Normal [facility] Comment on above: Performed By: #### U RCX #### [facility] [address] [place] [address] Dr. Ramses Dumas Glucose Ql (U) Negative Normal NEGATIVE [facility] Comment on above: Performed By: #### U RCX #### [facility] [address] [place] [address] Dr. Ramses Dumas Hemoglobin Ql (U) SMALL Abnormal NEGATIVE [facility] Comment on above: Performed By: #### U RCX #### [facility] [address] [place] [address] Dr. Ramses Dumas Ketones Ql (U) Negative Normal NEGATIVE [facility] Comment on above: Performed By: #### U RCX #### [facility] [address] [place] [address] Dr. Ramses Dumas LEUKOCYTES SMALL Abnormal NEGATIVE [facility] Comment on above: Performed By: #### U RCX #### [facility] [address] [place] [address] Dr. Ramses Dumas Nitrite Ql (U) Negative Normal NEGATIVE [facility] Comment on above: Performed By: #### U RCX #### [facility] [address] [place] [address] Dr. Ramses Dumas pH (U) 7.0 [pH] Normal 5-9 [facility] Comment on above: Performed By: #### U RCX #### [facility] [address] [place], [place] [id number] Dr. Ramses Dumas Protein (U) [Mass/Vol] 30 mg/dL Abnormal NEGAT CHRIS/ TRACE [facility] Comment on above: Performed By: #### U RCX #### [facility] [address] [place] [address] Dr. Ramses Dumas SPEC GRAVITY 1.020 Normal 1.005-<=1.02 5 [facility] Comment on above: Performed By: #### U RCX #### [facility] [address] [place] [address] Dr. Ramses Dumas UR MICRO IND INDICATED Normal [facility] Comment on above: Performed By: #### U RCX #### [facility] [address] [place] [address] Dr. Ramses Dumas Urobilinogen Qn (U) 0.2 {Lucero'U}/dL Normal 0.2 - 1. 0 [facility] Comment on above: Performed By: #### U RCX #### [facility] [address] [place] [address] Dr. Ramses Dumas LACTATE/LACTIC ACIDon 2021 Lactate [Moles/Vol] 2.3 mmol/L Critically high 0.4-1.9 [facility] Comment on above: Performed By: #### U RCX #### [facility] [address] [place] [address] Dr. Ramses Dumas URon 08-22-2022 , QUAL Negative Normal NEGATIVE [facility] Comment on above: Performed By: #### U RCX #### [facility] [address] [place] [address] Dr. Ramses Dumas PROF 14(COMP METB)on 022 Albumin [Mass/Vol] 3.5 g/dL Normal 3.4-5.0 [facility] Comment on above: Performed By: #### U RCX #### [facility] [address] [place] [address] Dr. Ramses Dumas Albumin/Globulin [Mass ratio] 0.9 {ratio} Normal [facility] Comment on above: Performed By: #### U RCX #### [facility] [address] [address] [address] Ramses Dumas ALP [Catalytic activity/Vol] 92 U/L Normal 46-116 [facility] Comment on above: Performed By: #### U RCX #### [facility] [address] [address] [address] Ramses Dumas ALT [Catalytic activity/Vol] 139 U/L Critically high 14-59 [facility] Comment on above: Performed By: #### U RCX #### [facility] [address] [address] [address] Ramses Dumas Anion gap [Moles/Vol] 10.2 mmol/L Normal [facility] Comment on above: Performed By: #### U RCX #### [facility] [address] [address] [address] Ramses Dumas AST [Catalytic activity/Vol] 112 U/L Critically high 15-37 [facility] Comment on above: Performed By: #### U RCX #### [facility] [address] [address] [address] Ramses Dumas Bilirubin [Mass/Vol] 0.2 mg/dL Normal 0.2-1.0 [facility] Comment on above: Performed By: #### U RCX #### [facility] [address] [address] [address] Ramses Dumas Calcium [Mass/Vol] 8.8 mg/dL Normal 8.5-10.1 [facility] Comment on above: Performed By: #### U RCX #### [facility] [address] [address] [address] Ramses Dumas Chloride [Moles/Vol] 105 mmol/L Normal 98-107 [facility] Comment on above: Performed By: #### U RCX #### [facility] [address] [address] [address] Ramses Dumas CO2 [Moles/Vol] 26.3 mmol/L Normal 21.0-32.0 [facility] Comment on above: Performed By: #### U RCX #### [facility] [address] [address] [address] Ramses Dumas Creatinine [Mass/Vol] 0.95 mg/dL Normal 0.55-1.02 [facility] Comment on above: Performed By: #### U RCX #### [facility] [address] [address] [address] Ramses Dumas EGFR-AF DJIBOUTIAN >60 Normal >=60 [facility] Comment on above: Performed By: #### U RCX #### [facility] [address] [address] [address] Ramses Dumas EGFR-NON AF DJIBOUTIAN >60 Normal >=60 [facility] Comment on above: Performed By: #### U RCX #### [facility] [address] [address] [address] Ramses Dumas Globulin (S) [Mass/Vol] 3.9 g/dL Normal [facility] Comment on above: Performed By: #### U RCX #### [facility] [address] [address] [address] Ramses Dumas Glucose [Mass/Vol] 137 mg/dL Critically high 74-106 [facility] Comment on above: Performed By: #### U RCX #### [facility] [address] [address] [address] Ramses Dumas Potassium [Moles/Vol] 3.5 mmol/L Normal 3.5-5.1 [facility] Comment on above: Performed By: #### U RCX #### [facility] [address] [address] [address] Ramses Dumas Protein [Mass/Vol] 7.4 g/dL Normal 6.4-8.2 [facility] Comment on above: Performed By: #### U RCX #### [facility] [address] [address] [address] Ramses Dumas Sodium [Moles/Vol] 138 mmol/L Normal 136-145 [facility] Comment on above: Performed By: #### U RCX #### [facility] [address] [address] [address] Ramses Dumas Urea nitrogen [Mass/Vol] 11.0 mg/dL Normal 7.0-18.0 [facility] Comment on above: Performed By: #### U RCX #### [facility] [address] [place] [address] Dr. Ramses Dumas Urea nitrogen/Creatinine [Mass ratio] 11.6 mg/mg Normal [facility] Comment on above: Performed By: #### U RCX #### [facility] [address] [place] [address] Dr. Ramses Dumas URINE MICROSCOPIC ONLYon BACTERIA LARGE Abnormal NONE SEEN [facility] Comment on above: Performed By: #### U RCX #### [facility] [address] [place] [address] Dr. Ramess Dumas Bacteria identified Cx Nom (U) CX ALREADY ORDERED Normal [facility] Comment on above: Performed By: #### U RCX #### [facility] [address] [place] [address] Dr. Ramses Dumas CAST NONE SEEN Normal NONE SEEN [facility] Comment on above: Performed By: #### U RCX #### [facility] [address] [place] [address] Dr. Ramses Dumas Crystals LM Nom (Urine sed) NONE SEEN Normal NONE SEEN [facility] Comment on above: Performed By: #### U RCX #### [facility] [address] [place] [address] Dr. Ramses Dumas Epithelial cells LM Ql (Urine sed) MANY Abnormal NONE SEEN /RARE [facility] Comment on above: Performed By: #### U RCX #### [facility] [address] [place] [address] Dr. Ramses Dumas MUCOUS NONE SEEN Normal NONE SEEN [facility] Comment on above: Performed By: #### U RCX #### [facility] [address] [place] [address] Dr. Ramses Dumas RBC 5-10 Abnormal 0-2 [facility] Comment on above: Performed By: #### U RCX #### [facility] [address] [place] [address] Dr. Ramses Dumas WBC 50-75 Abnormal NONE SEEN [facility] Comment on above: Performed By: #### U RCX #### [facility] [address] [address] [address] Ramses Dumas CULTURE URINEon 08-15-2022 CULTURE [...] F Tetracycline >=16 R F Normal [facility] Comment on above: Performed By: #### U RCX #### [facility] [address] [address] [address] Ramses Dumas Lipid Panelon 08-14-2022 Cholesterol [Mass/Vol] 162 mg/dL Normal 140-200 [facility] Comment on above: Result Comment: Chol less than 200 mg/dl low risk Chol 201-239 mg/dl borderline risk Chol 240 mg/dl and greater high risk Performed By: #### L IPID, TSH3 wRFLX, [id number] #### [facility] [address] Cholesterol in HDL [Mass/Vol] 42 mg/dL Normal 35-85 [facility] Comment on above: Result Comment: HDL CHOL ATP-III CLASSIFICATION Cardiovascular Risk HDL > or equal to 60 mg/dL LOW HDL < 40 mg/dL HIGH Performed By: #### L IPID, TSH3 wRFLX, [id number] #### [facility] [address] [id number] [facility] Cholesterol.total/Chol esterol in HDL [Mass ratio] 3.9 {ratio} Normal <5.0 [facility] Comment on above: Performed By: #### L IPID, TSH3 wRFLX, [id number] #### [facility] [address] [id number] [place] LDL Cholesterol,Calculated 108 mg/dL High 0-100 [facility] Comment on above: Result Comment: LDL ATP III CLASSIFICATION LDL less than 100 mg/dL Optimal LDL 100-129 mg/dL Near or above optimal LDL 130-159 mg/dL Borderline high LDL 160-189 mg/dL High LDL greater than 189 mg/dL Very high Performed By: #### L IPID, TSH3 wRFLX, [id number] #### [facility] [address] Triglyceride w/Reflex 59 mg/dL Normal 35-149 [facility] Comment on above: Result Comment: TRIG ATP III CLASSIFICATION TRIG less than 150 mg/dL Normal TRIG 150-199 mg/dL Borderline high TRIG 200-500 mg/dL High TRIG greater than 500 mg/dL Very high Standard traceable to the Center for Disease Conrtrol and Prevention (CDC) test method. Performed By: #### L IPID, TSH3 wRFLX, [id number] #### [facility] [address] VLDL CHOLESTEROL 11 mg/dL Normal [facility] Comment on above: Performed By: #### L IPID, TSH3 wRFLX, [id number] #### [facility] [address] Thyroid Stim Hormone w/Rflxo n 08-14-2022 Thyroid Stim Hormone w/Rflx 0.84 u[iU]/mL Normal 0.45-5.33 [facility] Comment on above: Performed By: #### L IPID, TSH3 wRFLX, [id number] #### [facility] [address] [id number] [facility] Vitamin D 25 Hydroxy Totalon 08-14-2022 Vitamin D 25 Hydroxy Total 17.7 ng/mL Low 30-100 [facility] Comment on above: Result Comment: THA MIN D STATUS 25(OH)VITAMIN D RANGE (ng/mL) Deficient <20 Insufficient 20 to <30 Sufficient 30 to 100 Reference: José Miguel MF,Jennifer NC, Mady MARTI, et al. Evaluation,treatment, and prevention of vitamin D deficiency; an Endocrine Society clinical practice guideline. JCEM. 2010; 96(7):0441-30. PERFORMED BY: [address] [place] [address] PATHOLOGIST ASSET AVAILABILITY LEADER AB ALCANTARA M.D. Performed By: #### L IPID, TSH3 wRFLX, [id number] #### [facility] [address] ACETAMINOPHENon 08-13-2022 Acetaminophen [Mass/Vol] ug/mL Critically low 10.0-30.0 [facility] Comment on above: Performed By: #### U RCX #### [facility] [address] [place] [address] Dr. Ramses Dumas CBC AUTO DIFFon 08-13-2022 BASO # 0.1 103/ul Normal 0.0-0.1 [facility] Comment on above: Performed By: #### C VDTBH #### [facility] [address] [place] [address] Dr. Ramses Dumas Basophils/100 WBC (Bld) 0.8 % Normal 0.2-2.0 [facility] Comment on above: Performed By: #### C VDTBH #### [facility] [address] [place] [address] Dr. Ramses Dumas EO # 0.1 103/ul Normal 0.0-0.7 [facility] Comment on above: Performed By: #### C VDTBH #### [facility] [address] [place] [address] Dr. Ramses Dumas Eosinophils/100 WBC (Bld) 1.6 % Normal 0.9-7.0 [facility] Comment on above: Performed By: #### C VDTBH #### [facility] [address] [place] [address] Dr. Ramses Dumas Erythrocyte distribution width (RBC) [Ratio] 13.3 % Normal 11.0-15.0 [facility] Comment on above: Performed By: #### C VDTBH #### [facility] [address] [place] [address] Dr. Ramses Dumas Hematocrit (Bld) [Volume fraction] 40.6 % Normal 36.0-48.0 [facility] Comment on above: Performed By: #### C VDTBH #### [facility] [address] [place] [address] Dr. Ramses Dumas Hemoglobin (Bld) [Mass/Vol] 13.2 g/dL Normal 12.0-16.0 [facility] Comment on above: Performed By: #### C VDTBH #### [facility] [address] [place] [address] Dr. Ramses Dumas IG # 0.01 10e3/ul Normal 0.00-0.03 [facility] Comment on above: Performed By: #### C VDTBH #### [facility] [address] [place] [address] Dr. Ramses Dumas IG % 0.2 % Normal 0.0-0.5 [facility] Comment on above: Performed By: #### C VDTBH #### [facility] [address] [place] [address] Dr. Ramses Dumas LYMPH # 2.4 103/ul Normal 1.2-3.8 [facility] Comment on above: Performed By: #### C VDTBH #### [facility] [address] [place] [address] Dr. Ramses Dumas Lymphocytes/100 WBC (Bld) 37.7 % Normal 20.5-60.0 [facility] Comment on above: Performed By: #### C VDTBH #### [facility] [address] [place] [address] Dr. Ramses Dumas MANUAL DIFF REQ NO Normal [facility] Comment on above: Performed By: #### C VDTBH #### [facility] [address] [place] [address] Dr. Ramses Dumas MCH (RBC) [Entitic mass] 26.7 pg Normal 26.7-34.0 [facility] Comment on above: Performed By: #### C VDTBH #### [facility] [address] [place] [address] Dr. Ramses Dumas MCHC (RBC) [Mass/Vol] 32.5 g/dL Normal 29.9-35.2 [facility] Comment on above: Performed By: #### C VDTBH #### [facility] [address] [place] [address] Dr. Ramses Dumas MCV (RBC) [Entitic vol] 82.0 fL Normal 81.0-99.0 [facility] Comment on above: Performed By: #### C VDTBH #### [facility] [address] [place] [address] Dr. Ramses Dumas MONO # 0.6 103/ul Normal 0.3-0.8 [facility] Comment on above: Performed By: #### C VDTBH #### [facility] [address] [place] [address] Dr. Ramses Dumas Monocytes/100 WBC (Bld) 8.6 % Normal 1.7-12.0 [facility] Comment on above: Performed By: #### C VDTBH #### [facility] [address] [place] [address] Dr. Ramses Dumas NEUT # 3.3 103/ul Normal 1.4-6.5 [facility] Comment on above: Performed By: #### C VDTBH #### [facility] [address] [place] [address] Dr. Ramses Dumas Neutrophils/100 WBC (Bld) 51.1 % Normal 43.0-75.0 [facility] Comment on above: Performed By: #### C VDTBH #### [facility] [address] [place] [address] Dr. Ramses Dumas Platelet mean volume (Bld) [Entitic vol] 8.7 fL Critically low 9.5-13.5 [facility] Comment on above: Performed By: #### C VDTBH #### [facility] [address] [place] [address] Dr. Ramses Dumas PLT 409 103/ul Normal 150-450 [facility] Comment on above: Performed By: #### C VDTBH #### [facility] [address] [place] [address] Dr. Ramses Dumas RBC 4.95 106/ul Normal 4.20-5.40 [facility] Comment on above: Performed By: #### C VDTBH #### [facility] [address] [place] [address] Dr. Ramses Dumas WBC 6.4 103/ul Normal 4.0-11.0 [facility] Comment on above: Performed By: #### C VDTBH #### [facility] [address] [place] [address] Dr. Ramses Dumas Covid-19 PCR ([facility])on 07-20 SARS-CoV-2 (COVID-19) RNA FRANCESCA+probe Ql (Unsp spec) Not detected Normal NOT DETECTED [facility] Comment on above: Result Comment: When [...] for this test is supported by the Community Outreach Director of Health and Human Service's declaration that [...] used). Performed By: #### C VDTBH #### [facility] [address] [place] [address] Dr. Ramses Dumas DRUG SCREEN RAPID (URINE)on 08-13-2022 AMP Negative Normal NEGATIVE [facility] Comment on above: Performed By: #### C BC #### [facility] [address] [place] [address] Dr. Ramses Dumas BAR Negative Normal NEGATIVE [facility] Comment on above: Performed By: #### C BC #### [facility] [address] [place], [place] [id number] Dr. Ramses Dumas BUP Negative Normal NEGATIVE [facility] Comment on above: Performed By: #### C BC #### [facility] [address] [place] [address] Dr. Ramses Dumas BZO Negative Normal NEGATIVE [facility] Comment on above: Performed By: #### C BC #### [facility] [address] [place] [address] Dr. Ramses Dumas ODILIA Negative Normal NEGATIVE [facility] Comment on above: Performed By: #### C BC #### [facility] [address] [place] [address] Dr. Ramses Dumas CUT-OFFS SEE BELOW Normal [facility] Comment on above: Result Comment: AMP [...] ng/mL Performed By: #### C BC #### [facility] [address] [place] [address] Dr. Ramses Dumas DRUG CUT HEADER DRUG CLASS TEST SYSTEM CUT-OFF CONCENTRATIONS ARE FOLLOWS: Normal [facility] Comment on above: Performed By: #### C BC #### [facility] [address] [place] [address] Dr. Ramses Dumas mAMP Negative Normal NEGATIVE [facility] Comment on above: Performed By: #### C BC #### [facility] [address] [place] [address] Dr. Ramses Dumas MTD Negative Normal NEGATIVE [facility] Comment on above: Performed By: #### C BC #### [facility] [address] [place] [address] Dr. Ramses Dumas OPI Negative Normal NEGATIVE [facility] Comment on above: Performed By: #### C BC #### [facility] [address] [place] [address] Dr. Ramses Dumas OXY Negative Normal NEGATIVE [facility] Comment on above: Performed By: #### C BC #### [facility] [address] [place] [address] Dr. Ramses Dumas PCP Negative Normal NEGATIVE [facility] Comment on above: Performed By: #### C BC #### [facility] [address] [place] [address] Dr. Ramses Dumas PPX Negative Normal NEGATIVE [facility] Comment on above: Performed By: #### C BC #### [facility] [address] [place] [address] Dr. Ramses Dumas TCA Negative Normal NEGATIVE [facility] Comment on above: Performed By: #### C BC #### [facility] [address] [place] [address] Dr. Ramses Dumas THC Negative Normal NEGATIVE [facility] Comment on above: Performed By: #### C BC #### [facility] [address] [place] [address] Dr. Ramses Dumas ER URINE PROFILEon 2 Bilirubin Ql (U) Negative Normal NEGATIVE [facility] Comment on above: Performed By: #### C BC #### [facility] [address] [place] [address] Dr. Ramses Dumas Clarity (U) CLEAR Normal CLEAR [facility] Comment on above: Performed By: #### C BC #### [facility] [address] [place] [address] Dr. Ramses Dumas Color (U) LT. YELLOW Normal YELLOW [facility] Comment on above: Performed By: #### C BC #### [facility] [address] [place] [address] Dr. Ramses DELEON A micrscopic examination will be performed if indicated. Normal [facility] Comment on above: Performed By: #### C BC #### [facility] [address] [place], [place] [id number] Dr. Ramses Dumas Glucose Ql (U) Negative Normal NEGATIVE [facility] Comment on above: Performed By: #### C BC #### [facility] [address] [place] [address] Dr. Ramses Dumas Hemoglobin Ql (U) LARGE Abnormal NEGATIVE [facility] Comment on above: Performed By: #### C BC #### [facility] [address] [place] [address] Dr. Ramses Dumas Ketones Ql (U) Negative Normal NEGATIVE [facility] Comment on above: Performed By: #### C BC #### [facility] [address] [place] [address] Dr. Ramses Dumas LEUKOCYTES LARGE Abnormal NEGATIVE [facility] Comment on above: Performed By: #### C BC #### [facility] [address] [place] [address] Dr. Ramses Dumas Nitrite Ql (U) Positive Abnormal NEGATIVE [facility] Comment on above: Performed By: #### C BC #### [facility] [address] [place] [address] Dr. Ramses Dumas pH (U) 6.0 [pH] Normal 5-9 [facility] Comment on above: Performed By: #### C BC #### [facility] [address] [place] [address] Dr. Ramses Dumas Protein (U) [Mass/Vol] 30 mg/dL Abnormal NEGAT CHRIS/ TRACE [facility] Comment on above: Performed By: #### C BC #### [facility] [address] [place] [address] Dr. Ramses Dumas SPEC GRAVITY >=1.030 Abnormal 1.005-<=1.02 5 [facility] Comment on above: Performed By: #### C BC #### [facility] [address] [place] [address] Dr. Ramses Dumas UR MICRO IND INDICATED Normal [facility] Comment on above: Performed By: #### C BC #### [facility] [address] [place] [address] Dr. Ramses Dumas Urobilinogen Qn (U) 0.2 {Lucero'U}/dL Normal 0.2 - 1. 0 [facility] Comment on above: Performed By: #### C BC #### [facility] [address] [address] [address] Ramses Dumas ETHANOL (BLD ALC)on 08-13-20 22 ALC NOTE NOTE: 80 mg/dl is th e legal limit for a blood alcohol level Normal [facility] Comment on above: Performed By: #### B [id number] #### [facility] [address] [place] [address] Dr. Ramses Dumas Ethanol [Mass/Vol] mg/dL Normal [facility] Comment on above: Performed By: #### B LDCX2 #### [facility] [address] [place] [address] Dr. Ramses Dumas URon 08-13-2022 , QUAL Negative Normal NEGATIVE [facility] Comment on above: Performed By: #### C BC #### [facility] [address] [place] [address] Dr. Ramses Dumas PROF 14(COMP METB)on 022 Albumin [Mass/Vol] 3.8 g/dL Normal 3.4-5.0 [facility] Comment on above: Performed By: #### U RCX #### [facility] [address] [place] [address] Dr. Ramses Dumas Albumin/Globulin [Mass ratio] 0.9 {ratio} Normal [facility] Comment on above: Performed By: #### U RCX #### [facility] [address] [place] [address] Dr. Ramses Dumas ALP [Catalytic activity/Vol] 82 U/L Normal 46-116 [facility] Comment on above: Performed By: #### U RCX #### [facility] [address] [place] [address] Dr. Ramses Dumas ALT [Catalytic activity/Vol] 41 U/L Normal 14-59 [facility] Comment on above: Performed By: #### U RCX #### [facility] [address] [address] [address] Ramses Dumas Anion gap [Moles/Vol] 9.3 mmol/L Normal [facility] Comment on above: Performed By: #### U RCX #### [facility] [address] [place] [address] Dr. Ramses Dumas AST [Catalytic activity/Vol] 21 U/L Normal 15-37 [facility] Comment on above: Performed By: #### U RCX #### [facility] [address] [address] [address] Ramses Dumas Bilirubin [Mass/Vol] 0.3 mg/dL Normal 0.2-1.0 [facility] Comment on above: Performed By: #### U RCX #### [facility] [address] [place] [address] Dr. Ramses Dumas Calcium [Mass/Vol] 8.9 mg/dL Normal 8.5-10.1 [facility] Comment on above: Performed By: #### U RCX #### [facility] [address] [place] [address] Dr. Ramses Dumas Chloride [Moles/Vol] 105 mmol/L Normal 98-107 [facility] Comment on above: Performed By: #### U RCX #### [facility] [address] [place] [address] Dr. Ramses Dumas CO2 [Moles/Vol] 28.5 mmol/L Normal 21.0-32.0 [facility] Comment on above: Performed By: #### U RCX #### [facility] [address] [place] [address] Dr. Ramses Dumas Creatinine [Mass/Vol] 0.81 mg/dL Normal 0.55-1.02 [facility] Comment on above: Performed By: #### U RCX #### [facility] [address] [place] [address] Dr. Ramses Dumas EGFR-AF DJIBOUTIAN >60 Normal >=60 [facility] Comment on above: Performed By: #### U RCX #### [facility] [address] [place] [address] Dr. Ramses Dumas EGFR-NON AF DJIBOUTIAN >60 Normal >=60 [facility] Comment on above: Performed By: #### U RCX #### [facility] [address] [place] [address] Dr. Ramses Dumas Globulin (S) [Mass/Vol] 4.1 g/dL Normal [facility] Comment on above: Performed By: #### U RCX #### [facility] [address] [place] [address] Dr. Ramses Dumas Glucose [Mass/Vol] 100 mg/dL Normal 74-106 [facility] Comment on above: Performed By: #### U RCX #### [facility] [address] [place] [address] Dr. Ramses Dumas Potassium [Moles/Vol] 3.8 mmol/L Normal 3.5-5.1 [facility] Comment on above: Performed By: #### U RCX #### [facility] [address] [place] [address] Dr. Ramses Dumas Protein [Mass/Vol] 7.9 g/dL Normal 6.4-8.2 [facility] Comment on above: Performed By: #### U RCX #### [facility] [address] [place] [address] Dr. Ramses Dumas Sodium [Moles/Vol] 139 mmol/L Normal 136-145 [facility] Comment on above: Performed By: #### U RCX #### [facility] [address] [place] [address] Dr. Ramses Dumas Urea nitrogen [Mass/Vol] 10.0 mg/dL Normal 7.0-18.0 [facility] Comment on above: Performed By: #### U RCX #### [facility] [address] [place] [address] Dr. Ramses Dumas Urea nitrogen/Creatinine [Mass ratio] 12.3 mg/mg Normal [facility] Comment on above: Performed By: #### U RCX #### [facility] [address] [place] [address] Dr. Ramses Dumas SALICYLATEon 08-13-2022 SALICYLATE <2.8 Normal <=19.9 [facility] Comment on above: Performed By: #### U RCX #### [facility] [address] [place] [address] Dr. Ramses Dumas URINE MICROSCOPIC ONLYon BACTERIA LARGE Abnormal NONE SEEN [facility] Comment on above: Performed By: #### C BC #### [facility] [address] [place] [address] Dr. Ramses Dumas Bacteria identified Cx Nom (U) INDICATED Normal [facility] Comment on above: Performed By: #### C BC #### [facility] [address] [place] [address] Dr. Ramses Dumas CA OX CRYSTALS RARE Normal [facility] Comment on above: Performed By: #### C BC #### [facility] [address] [place] [address] Dr. Ramses Dumas CAST NONE SEEN Normal NONE SEEN [facility] Comment on above: Performed By: #### C BC #### [facility] [address] [place] [address] Dr. Ramses Dumas Crystals LM Nom (Urine sed) SEEN Abnormal NONE SEEN [facility] Comment on above: Performed By: #### C BC #### [facility] [address] [place] [address] Dr. Ramses Dumas Epithelial cells LM Ql (Urine sed) MODERATE Abnormal NONE SEEN /RARE [facility] Comment on above: Performed By: #### C BC #### [facility] [address] [place] [address] Dr. Ramses Dumas MUCOUS NONE SEEN Normal NONE SEEN [facility] Comment on above: Performed By: #### C BC #### [facility] [address] [place] [address] Dr. Ramses Dumas RBC 10-20 Abnormal 0-2 [facility] Comment on above: Performed By: #### C BC #### [facility] [address] [place] [address] Dr. Ramses Dumas WBC 20-50 Abnormal NONE SEEN [facility] Comment on above: Performed By: #### C BC #### [facility] [address] [address] [address] Ramses Dumas Pap IG,rfx Aptima HPV all pt hon 08-09-2022 . . Normal [facility] Comment on above: Performed By: #### C MP #### [facility] [address] [address] [address] Ramses Dumas DIAGNOSIS: Comment Abnormal [facility] Comment on above: Result Comment: EPIT HELIAL CELL ABNORMALITY. LOW GRADE SQUAMOUS INTRAEPITHELIAL LESION (LSIL). Performed By: #### C MP #### [facility] [address] [address] [address] Ramses Dumas Electronically signed by: Comment Normal [facility] Comment on above: Result Comment: Arnaud Joseph MD, Pathologist Performed By: #### C MP #### [facility] [address] [place] [address] Dr. Ramses Dumas HPV Aptima Negative Normal Negative [facility] Comment on above: Result Comment: This nucleic acid amplification test detects fourteen high-risk HPV types (16,18,31,33,35,39,45,51,52,56,58,59,66,68) without differentiation. Performed By: #### C MP #### [facility] [address] [place] [address] Dr. Ramses Dumas Methodology: Comment Normal [facility] Comment on above: Result Comment: This liquid based ThinPrep(R) pap test was screened with the use of an image guided system. Performed By: #### C MP #### [facility] [address] [address] [address] Ramses Dumas Note: Comment Normal [facility] Comment on above: Result Comment: The Pap smear is a screening test designed to aid in the detection of premalignant and malignant conditions of the uterine cervix. It is not a diagnostic procedure and should not be used as the sole means of detecting cervical cancer. Both false-positive and false-negative reports do occur. . Performed By: #### C MP #### [facility] [address] [place] [address] Dr. Ramses Dumas Pathologist Provided ICD10 Comment Normal [facility] Comment on above: Result Comment: [id number] Performed By: #### C MP #### [facility] [address] [address] [address] Ramses Dumas Performed by: Comment Normal [facility] Comment on above: Result Comment: Gail Ruano, Mold Breaker (ASCP) Performed By: #### C MP #### [facility] [id number] Ramses Dumas Reflex Criteria: Comment Normal [facility] Comment on above: Result Comment: See below for HPV testing results. . Performed By: #### C MP #### [facility] [id number] Ramses Dumas Specimen adequacy: Comment [facility] Comment on above: Result Comment: Sati sfactory for evaluation. Endocervical and/or squamous metaplastic cells (endocervical component) are present. Performed By: #### C MP #### [facility] [address] [address] [address] Ramses Dumas Vital Signs Date Time Vital Sign Value Performing Clinician Rikyi chris 03-20-2023 10:30-0400 Blood Pressure Location Nona VILLA [facility] 03-20-2023 10:30-0400 Diastolic blood pressure 73 mm[Hg] Nona VILLA [facility] 03-20-2023 10:30-0400 Heart rate 80 /min Nona VILLA [facility] 03-20-2023 10:30-0400 Respiratory rate 16 /min Nona VILLA [facility] 03-20-2023 10:30-0400 Systolic blood pressure 128 mm[Hg] Nona VILLA [facility] Encounters Encounter Date Encounter Type Care Provider Facility Start: 12-17-2023 End: 12-17-2023 ambulatory CELIO VAN Not Available Start: 12-04-2023 End: 12-05-2023 ambulatory Nona VILLA Facility:[facility] Start: 12-04-2023 End: 12-04-2023 Patient encounter procedure Nona VILLA [facility] Start: 04-09-2023 End: 04-10-2023 ambulatory Nona VILLA Facility:[id number] Start: 03-20-2023 End: 03-21-2023 ambulatory Nona VILLA Facility:[facility] Start: 03-20-2023 End: 03-20-2023 Patient encounter procedure Nona VILLA [facility] Start: 02-16-2023 End: 02-16-[address] DOMINGO DAS . Facility:[facility] Start: 02-02-2023 End: 02-02-[address] DOMINGO DAS . Facility: Start: 12-26-2022 End: 12-27-2022 ambulatory Nona VILLA Facility:[facility] Start: 12-26-2022 End: 12-26-2022 Patient encounter procedure Nona VILLA [facility] Start: 12-16-2022 End: 12-17-[address] NONA VILLA . Facility:[facility] Start: 12-15-2022 End: 12-16-[address] NONA VILLA . Facility:[facility] Start: 11-27-[address] DOMINGO DAS . Facili ty:[facility] Start: 11-07-2022 End: 11-07-[address] DOMINGO DAS . Facility:[facility] Start: 11-04-2022 Encounter for preprocedural cardiovascular examination DR JEFFERSON GIBBS . [facility] Start: 11-04-2022 Encounter for preprocedural laboratory examination DR JEFFERSON GIBBS . [facility] Start: 11-03-2022 End: 11-04-2022 Encounter for preprocedural cardiovascular examination DR DOMINGO DAS . Facility:[facility] Start: 11-03-2022 End: 11-04-[address] DOMINGO DAS . Facility:[facility] Start: 09-20-2022 Encounter for preprocedural laboratory examination DR NONA VILLA . [facility] Start: 09-18-2022 End: 09-18-[address] NONA VILLA . Facility:[facility] Start: 09-16-2022 End: 09-17-[address] NONA VILLA . Facility:[facility] Start: 09-16-2022 End: 09-17-2022 Encounter for preprocedural laboratory examination DR NONA VILLA . Facility:[facility] Start: 09-05-2022 End: 09-05-2022 ambulatory ORA BOND . 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 Facility:[facility] Start: 08-13-2022 End: 08-16-2022 Evaluation and management of inpatient Abdelrahma Traci Facility:[facility] Start: 08-13-2022 End: 08-13-2022 ambulatory ORA BOND . Facility:[facility] Start: 07-31-2022 Encounter for cervic al smear to confirm findings of recent normal smear following initial abnormal smear DR JEFFERSON GIBBS . [facility] Start: 07-30-2022 End: 07-30-[address] [...] Author Start: 06-19-2022 Influenza vaccination INFLUENZA (#1) [facility] Start: 10-19-2021 DEPRESSION ASSESSMENT DEPRESSION ASS ESSMENT [facility] Start: 2021 HPV TESTING [address] TESTING [facility] Start: 2012 PAP TESTING PAP TESTING [facility] Start: 2010 Urine microalbumin profile DTAP,TDAP ,TD (1 - Tdap) [facility] Start: 2009 [facility]PATIT[facility] HIV SCREENING HIV SCREENING [facility] Start: 03-14-1992 COVID-19 VACCINE (#1) COVID-19 VACCI NE (#1) [facility] Start: 1991 HEPATITIS B (1 of 3 - 3-dose series) HEPATITIS B (1 of 3 - 3-dose series) [facility] Immunizations Immunization Date Immunization Notes Care Provider Fa ralfty 08-01-2019 influenza virus vaccine, unspecified formulation Nona VILLA [facility] 08-09-2018 tetanus toxoid, redu franco diphtheria toxoid, and acellular pertussis vaccine, adsorbed Nona VILLA [facility] 08-08-2018 influenza virus vaccine, unspecified formulation [employer] [facility] 06-19-2004 hepatitis B vaccine, pediatric or pediatric/adolescent dosage [employer] [facility] 03-27-2004 hepatitis B vaccine, pediatric or pediatric/adolescent dosage [employer] [facility] 12-18-2003 hepatitis B vaccine, pediatric or pediatric/adolescent dosage [employer] [facility] 12-18-2003 measles, mumps and rubella virus vaccine [employer] [facility] 04-10-1993 DTaP, unspecified formulation [employer] [facility] 04-10-1993 poliovirus vaccine, unspecified formulation [employer] [facility] 12-28-1992 Hib, unspecified formulation [employer] [facility] 12-28-1992 measles, mumps and rubella virus vaccine [employer] [facility] 03-26-1992 Hib, unspecified formulation [employer] [facility] 01-18-1992 Hib, unspecified formulation [employer] [facility] 1991 Hib, unspecified formulation Nona VILLA [facility] Payers Date Payer Category Payer Self-pay 2021 Medicaid [facility] MED[facility] TERM 09/17 [facility] MEDICAID [id number] 2021-Present [phone] [address] [place] [address] Medicaid [id number] 1991 Unknown [id number] 1991 Unknown [id number] [id number] 1991 Unknown [id number] [id number] 1991 Unknown [id number] 2.16.840.1.109308.3.579.2.593 1991 Unknown [id number] 2.16.840.1.717756.3.579.2.593 1991 Unknown [id number] 2.16.840.1.904381.3.579.2.593 1991 Unknown [id number] 2.16.840.1.966465.3.579.2.593 1991 Unknown [id number] 2.16.840.1.913713.3.579.2.593 1991 Unknown [id number] 2.16.840.1.885843.3.579.2.593 1991 Unknown [id number] 2.16.840.1.270981.3.579.2.593 1991 Unknown [id number] 2.16.840.1.756376.3.579.2.593 1991 Unknown [id number] 2.16.840.1.396639.3.579.2.593 1991 Unknown [id number] 2.16.840.1.574616.3.579.2.593 1991 Unknown [id number] 2.16.840.1.449888.3.579.2.593 1991 Unknown [id number] 2.16.840.1.493207.3.579.2.593 1991 Unknown [id number] 1990 Unknown [id number] 1990 Unknown [id number] 1990 Unknown [id number] 1990 Unknown [id number] 1990 Unknown [id number] 1958 Self-pay [id number] 1958 Unknown [id number] 1958 Unknown [id number] Unknown [id number] Social History Date Type Detail Facility Tobacco smoking status HIIS Tobacco smoking consumption unknown [facility] Start: 1990 Sex Assigned At Not on file [facility] Start: 08-20-2021 End: 03-20-2023 Tobacco smoking status Never smoked tobacco (finding) [facility] Tobacco smoking status Never [facility] Sex Assigned At Female [facility] Functional Status Date Assessment Result Facility 03-20-2023 Functional Status N/A [facility] Clinical Notes 07-03-2022 to 03-20-2023 Daniel Santiago APRN.KILN CLEANER - 09/04/2022 7:40 AM EST Note Date & Type Note Facility 03-20-2023 Hospital Discharge instructions Follow Up Care 03/20/2023 11:51:58 With:IDALMIS BORDEN, Nona Turner, ALDOL Address: [address] [place] [address] [place] [address]- When: Unknown [facility] [place] 03-20-2023 Hospital Discharge instructions Patient [...] include: ?8 oz (237 mL) of milk, pcshfuz-ygwsyqtetlxz-kuujl milk, and calcium-fortifiedfruit juice. Calcium-fortified means that [...] ?Spinach (cooked), rhubarb, beets, sweet potatoes, and Latvian chard. ?Peanuts. ?Potato chips, maltese fries, and baked potatoes with skin on. ?Nuts and nut products. ?Chocolate. If you regularly take a diuretic medicine, make sure to eat at least 1 or 2 servings of fruits or vegetables that are high in potassium each day. These include: ?Avocado. ?Banana. ?[place], prune, carrot, or tomato juice. ?Baked potato. [...] magnesium, fish oil, or vitamin B6. Take tagc-loy-hjevsrv and prescription medicines only as told by [...] Casseroles. Pizza. Lasagna. Frozen meals. Potato chips. Uzbek fries. The items listed above may not [...] provider. Document Revised: 06/16/2022 Document Reviewed: 06/16/2022 [employer] Patient Education 2022 [employer]. Follow Up Care 12/26/2022 08:46:46 With:IDALMIS BORDEN, Nona Turner, URL Address: [facility] [address] , [place] [address]- When: Unknown [facility] 11-07-2022 Note OPERATIVE NOTE OPERATION DATE: 11/07/2022 PROCEDURE: Mery endometrial ablation with LEEP. PREOPERATIVE DIAGNOSIS: Cervical dysplasia, menorrhagia. POSTOPERATIVE DIAGNOSIS: Cervical dysplasia, menorrhagia. ANESTHESIA: General. SURGEON: Jefferson Gibbs D.O. ELECTRICAL PROJECT MANAGER: None. BLOOD LOSS: 50 mL. URINE OUTPUT: [...] to Recovery Room in stable condition. [facility] 09-25-2022 Hospital Discharge instructions Follow Up Care 09/25/2022 13:54:04 With:IDALMIS BORDEN, Nona Turner, URL Address: [address] [place], [place] [id number]- When: Unknown [facility] 09-18-2022 Note OPERATIVE NOTE OPERATION DATE: [...] usual fashion. I started by passing a 22-Uzbek Olympus cystoscope per urethra and into the [...] wheeled to PACU in stable condition. [facility] 09-04-2022 Note HNO ID: [id number] Author: Daniel Santiago APRN.KILN CLEANER Service: ? Author Type: Nurse Practitioner Type: Progress Notes Filed: 09/04/2022 7:46 AM Note Text: The patient did not show up for this appointment. The patient did not show up for this appointment. 09-04-2022 History of Present illness Narrative The patient did not show up for this appointment. The patient did not show up for this appointment. documented in this encounter [facility] 07-03-2022 Note PROCEDURE: XR ANKLE LT MIN 3 V COMPARISON: None. HISTORY: Sprain of calcaneofibular ligament FINDINGS: BONES:No fracture, acute abnormality, or significant arthropathy. SOFT TISSUES:Extensive lateral soft tissue swelling EFFUSION:None visible. OTHER: Negative. IMPRESSION: Lateral soft tissue swelling. No acute fracture Electronically authenticated by: GLEN GRAFF Date: 2022-07-03 07:09 [facility] Evaluation + Plan note Future Appointments Appointment Date:03/20/2023 10:15:00 AM Scheduled Provider:Nona VILLA MD Location:[facility] Appointment Type:URO Office Visit [facility] Evaluation + Plan note Future Appointments Appointment Date:12/04/2023 09:45:00 AM Scheduled Provider:Nona VILLA MD Location:[facility] Appointment Type:URO Office Visit Diagnostic Tests PendingElectrolyte Panel 03/20/23 [facility] Evaluation note Diagnosis NO SHOW- Primary documented in this encounter [facility] course Narrative No data available for this section [facility] progress note No data available for this section [facility] Summary Purpose Family History No Family [...] section and content) DATE CREATED AUTHOR 08/23/2022 [facility] DATE CREATED AUTHOR AUTHOR'S ORGANIZ ATION 09/06/2022 [facility] DATE CREATED AUTHOR AUTHOR'S ORGANIZ ATION 02/19/[address] [facility] DATE CREATED AUTHOR AUTHOR'S ORGANIZ ATION 12/06/2023 [facility] DATE CREATED AUTHOR AUTHOR'S ORGANIZ ATION 12/19/2023 [facility] EPIC Source Comments (unrecognize d section and content) In the event this informatio n is protected by the Federal Confidentiality of Alcohol and Drug Abuse Patient Records regulations: The Federal rules restrict any use of the information to criminally investigate or prosecute any alcohol or drug abuse patient.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 [facility]. provides no warranty or guarantee of the accuracy or completeness of information in this document.
--- NOTE | 2023-12-29 07:17 | US_ITS ---
[address] [address] Patient Name: CORI BARRIGA MRN: [id number] date: 1990 Sex: F Assigned Patient Location: Current Patient Location: US Accession/Order Number: [id number] Exam Date: 12/29/2023 07:20 Report Date: 12/29/2023 08:24 At the request of: TOMASZ LOZADA Procedure: US breast vac bx w/ clip LT EXAMINATION: US breast vac bx w/ clip LT HISTORY: Left Breast Mass COMPARISON: No relevant comparison available. TECHNIQUE: After obtaining informed consent, ultrasound-guided fine needle aspiration was performed in the usual sterile manner. FINDINGS: IMAGING: Ultrasound. BIOPSY NEEDLE: 13-gauge vacuum-assisted mammotome LOCATION: 3.6 cm heterogeneous left breast 6:00 mass SPECIMEN TYPE: 5 core samples LOCAL ANESTHETIC: 2 cc 1% buffered lidocaine superficial. 6 cc 1% buffered lidocaine with epinephrine deep COMPLICATIONS: None. LABORATORY: Samples sent to pathology OTHER: Negative. PATHOLOGY: Pending. An addendum will be added when results are available. US/US breast vac bx w/ clip LT IMPRESSION: 1. Uneventful ultrasound vacuum assisted core biopsy left breast mass 2. Pathology results are pending. Electronically authenticated by: GLEN GRAFF Date: 12/29/2023 08:24
--- NOTE | 2023-12-29 07:17 | MM_ITS ---
Patient Name: CORI BARRIGA MR#: [id number] : 1990 Exam Date: 12/29/2023 Ordering Doctor: DR Jefferson Gibbs . This report includes an Addendum and supersedes previous reports for this exam. RADIOLOGY REPORT PROCEDURE: MM POST BIOPSY LT COMPARISON: MM TOMOSYNTHESIS DIAGNOSTIC BI, 12/23/2023. INDICATIONS: Left Breast Mass BREAST COMPOSITION: Extremely dense, which lowers the sensitivity of mammography. FINDINGS: BIOPSY MARKER: A metallic marker has been placed in the targeted location within the lower outer quadrant of the left breast. BREAST FINDINGS: Postprocedural changes with increased densities subcutaneous edema. Nipple piercing Dictated by: Andrzej Perez MD on 12/29/2023 at 08:56 Approved by: Andrzej Perez MD on 12/29/2023 at 08:57 ADDENDUM: FINDINGS: DIAGNOSTIC CATEGORY 2--BENIGN FINDING: RECOMMENDATIONS: CLINICAL EVALUATION. Dictated by: Andrzej Perez MD on 01/05/2024 at 10:53 Approved by: Andrzej Perez MD on 01/05/2024 at 10:54
[2023-12-29 07:25] VITALS: BP 110/78; PULSE 83; O2SAT 95
[2023-12-29] MEDS: LIDOCAINE HCL/EPINEPHRINE 10 ML, SODIUM BICARBONATE 1 MEQ INJ (08:05)
[2023-12-29] MEDS: LIDOCAINE HCL 10 ML, SODIUM BICARBONATE 1 MEQ INJ (08:05)
--- NOTE | 2023-12-29 08:59 | SUR.PREOP ---
12/25/23 Instructed pt on date, time, prep, and proceure.
== END 2023-12-29 08:30 | disposition home or self-care (01) ==
LOC: US 07:11
PROVIDERS: Radiology Diagnostic Radiology; PCP Family Medicine; Visit Provider Obstetrics & Gynecology
DX: N60.12 Diffuse cystic mastopathy of left breast (principal); R92.0 Mammographic microcalcification found on diagnostic imaging of breast
CPT/HCPCS: 19083; 77065; 88305; 88312; 88341; 88342; 99999

== ENCOUNTER 2024-02-20 10:09 | Emergency (ER) | payer SELFPAY ==
[2024-02-20 10:13] VITALS: BP 144/83; PULSE 84; TEMP 36.5; O2SAT 98; BMI 30.2
--- OUTSIDE RECORDS SUMMARY | 2024-02-20 10:17 | XMS_ITS | CCD ---
Author Organization [facility] Care Team Providers Care Laborer Prestressed Concrete Name Role Phone Domingo Das MD Unavailable DANIEL SANTIAGO Attending Unavailable DOMINGO DAS Referring Unavailable Domingo Das Primary Care Physician [phone] LILLIAN ., DR LANE Primary Care Unavailable NEVILLE ., DR TOLBERT Admitting Unavailable NEVILLE ., DR TOLBERT Attending Unavailable SILVERIO, DR ERWIN Turner Consulting Unavailable MOORE, DR ERWIN Turner Attending Unavailable LILLIAN ., [...] Unavailable HOY ., DR LANE Admitting Unavailable DAJUAN, DR GLEN Alford Consulting Unavailable HOY ., DR LANE Primary Care Unavailable NEIVLLE ., DR TOLBERT Admitting Unavailable NEVILLE ., [...] Unavailable HOY ., DR LANE Admitting Unavailable VILLA ., DR CASTELLANO Consulting [...] VILLA Attending Unavailable Caesar VILLA Attending Unavailable VLILACaesar Attending Unavailable CELIO VAN Attending Unavailable Domingo Das Primary Care Unavailable Glen Graff V Attending Unavailable Glen Graff V Admitting Unavailable Medications Current Medications Medication Drug Class(es) [...] Onset: 11-04-2022 Chronic Mood disorders (4 sources) Major depressive disorder, single episode, unspecified; Translations: [Major depressive disorder, recurrent, unspecified] Onset: 08-14-2022 03-20-2023 Chronic Nausea and vomiting (4 sources) Nausea with vomiting, unspecified; Translations: [NAUSEA WITH VOMITING UNSPECIFIED] Onset: 02-16-2023 Episodic Other aftercare (1 source) 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; Translations: [OTH ADMINISTRATIVE OFFICE SPECIALIST CURRENT DRUG THERAPY] Onset: 02-18-2023 Episodic Other aftercare (1 source) termite control representative (current) use of oral hypoglycemic drugs; Translations: [ADMINISTRATIVE OFFICE SPECIALIST USE ORAL HYPOGLYCEMIC DX] Onset: 02-18-2023 Episodic [...] 07-02-2022 Episodic Suicide and intentional self-inflicted injury (4 sources) Suicidal ideations; Translations: [SUICIDAL IDEATIONS] Onset: 08-13-2022 Episodic Results Test Name Value Interpretation Reference Range Facility [facility] 12-29-2023 L Specimen: [id number] Received: 12/29/23 Status: DAQUAN Moon Num: [id number] Spec Type: Surgical Subm Dr: Glen Graff MD Tissues: A BREAST CORE NO CALCS (LT BREAST 6:00) Procedures: PAS - LGRN, HE/2, Gross/Micro L4, AE1-AE3, CD68 Age/ Patient Sex Location Account Attending Physician Diana Barriga 33/F LABELL [id number] Glen Graff MD SPEC NUM: [id number] RECD: 12/29/23 STATUS: DAQUAN MOON NUM: [id number] KELBY: 12/29/23- SUBM DR: Glen Graff MD ENTERED: 12/29/23 [facility] DR: Roula,Miles Gibbs SPEC TYPE: Surgical DEPT: MAX LEGGETT ORDERED: PAS - LGRN, HE/2, Gross/Micro L4, AE1-AE3, CD68 ORDERED: PAS - LGRN, HE/2, Gross/Micro L4, AE1-AE3, CD68 Pathological Diagnosis Left breast mass at the 6:00, core biopsies: -Severe chronic mastitis with associated chronic abscess, including marked chronic histiocytic inflammation with foci of granulomatous chronic inflammation containing small histiocytic giant cells, patchy mildly admixed PMNs, patchy background fibrosis and vascular granulation tissue, and nonspecific chronic mastitis with masking lymphocytic inflammation of the intermixed lobular acinar glands, 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 Entirely submitted in one cassette labeled A1. Time of excision: 8:07 AM 12/29/2023, time in formalin: 8:09 AM 12/29/2023, time out of -------- Specimen: [id number] Received: 12/29/23 Status: DAQUAN Moon Num: [id number] Spec Type: Surgical Subm Dr: Glen Graff MD Tissues: A BREAST CORE NO CALCS (LT BREAST 6:00) Procedures: PAS - LGRN, HE/2, Gross/Micro L4, AE1-AE3, CD68 -------- Patient: Diana Barriga [id number] (Continued) -------- Specimen: [id number] Received: 12/29/23 (Continued) Gross Description (Continued) Signed (signature on file) Swathi Dumas MD 12/30/23 1834 -------- Specimen: [id number] Received: 12/29/23 Status: DAQUAN Moon Num: [id number] Spec Type: Surgical Subm Dr: Glen Graff MD Tissues: A BREAST CORE NO CALCS (LT BREAST 6:00) Procedures: PAS - LGRN, HE/2, Gross/Micro L4, AE1-AE3, CD68 -------- Patient: Diana Barriga Boogie [id number] (Continued) -------- Specimen: [id number] Received: 12/29/23 (Continued) Gross Description (Continued) formalin: 6 PM 12/29/2023. Cold Ischemia and Fixation Time meets the requirements specified in the latest version of the ASCO/CAP guidelines: Yes. Cold Ischemic Time: 0.03 Formalin Fixation Time: 9.85 CPT Codes 22346 [id number] -------- -------- Specimen: [id number] Received: 12/29/23 Status: DAQUAN Moon Num: [id number] Spec Type: Surgical Subm Dr: Glen Graff MD Tissues: A BREAST CORE NO CALCS ( BREAST 6:00) Procedures: PAS - LGRN, HE/2, Gross/Micro L4, AE1-AE3, CD68 -------- Patient: Diana Barriga [id number] (Continued) -------- Signed (signature on file) Swathi Dumas MD 12/30/231833 [facility] Patient Letter FTon 2023 Patient Letter [facility] December 04, 2023 DIANA BARRIGA [address] [place] [address] : 1990 Dear Diana, You missed your [...] any future cancellations. Sincerely, [facility] [address], [place] [address] [facility] Lab Reportson 06-05-2023 Lab Reports [id number]#1 .00CD:127 [facility] Reminderson 04-24-2023 Reminders - From: Whitney Collier To: PATEL Robertson PA - Results; Sent: 03/20/2023 12:53:35 EDT Show up: 04/17/2023 12:52:00 EDT Subject: Electrolyte panel Due Date/Time: 04/17/2023 12:52:00 EDT Pt should be getting electrolyte panel April 17 after starting HCTZ. Also has hx of low K but recent level was wnl. Please check for these results and once they are in, call the pt with the results. duplicate message [facility] Operative Reporton Operative Report [id number]#1. 00CD:127 [facility] RAD - MISCon 04-10-2023 RAD - MISC [id number]#1 .00CD:127 [facility] Lab Reportson 04-06-2023 Lab Reports [id number]#1 .00CD:127 [facility] Lab Reports [id number]#1 .00CD:127 [facility] Lab Reportson 03-23-2023 Lab Reports [id number]#1 .00CD:127 [facility] Lab Reports [id number]#1 .00CD:127 [facility] Lab Reports [id number]#1 .00CD:127 [facility] RAD - CT Reporton 03-23-2023 RAD - CT Report [id number]#1 .00CD:127 [facility] RAD - CT Report [id number]#1 .00CD:127 [facility] Ambulatory Visit Summaryon 0 03-20-2023 [...] When: Where: [facility] [address] [place] [address]- Medications What When Instructions Unchanged olanzapine-samidorpha n [...] handful of b (more content not included)... [facility] Consent for Procedure/Surger yon 03-20-2023 Consent for Procedure/Surgery [id number]#1 .00CD:127 [facility] Patient Educationon 03-20-20 23 Patient [...] Spinach (cooked), rhubarb, beets, sweet potatoes, and Armenian chard. ? Peanuts. ? Potato chips, israeli fries, and baked potatoes with skin on. ? Nuts and nut products. ? Chocolate. ? If you regularly take a diuretic medicine, make sure to eat at least 1 or 2 servings of fruits or vegetables that are high in potassium each day. These include: ? Avocado. ? Banana. ? Bearden, prune, carrot, or tomato juice. ? Baked [...] fish oil, or vitamin B6. ? Take nvpy-vsn-kfrtvnj and prescription medicines only as told by your health care provider. These include supplements. What foods should I limit? Limit your in (more content not included)... [facility] Urology Office/Clinic Noteon 03-20-2023 Urology Office/Clinic [...] Lt kidney pain. Did got to the [place] [facility]. DX'd & treated for UTI. (NEG [...] L. Ox slightly elevated. Pt presented to [facility] ER on 03/06/23 due to L [...] mg qd. SEs discussed. Rx sent to [facility]. -Electrolyte panel 4 weeks to [...] When Contact Information IDALMIS BORDEN, Caesar Turner, [facility] [address], [place] [address]- Additional Instructions: schedule R ESWL Patient Education [...] kidney s (more content not included)... Normal [facility] Comment on above: Result Comment: Elec tronically Signed By: Caesar VILLA MD\.br\Date and Time Signed: 03/20/23 11:30 EDT\.br\Electronically Co-Signed By: Whitney Collier\.br\Date and Time Co-Signed: 03/20/23 11:28 EDT CBC AUTO DIFFon 02-16-2023 BASO # 0.1 103/ul Normal 0.0-0.1 [facility] Comment on above: Performed By: #### U KJ 24 #### [facility] [address] [address] [address] Ramses Dumas Basophils/100 WBC (Bld) 0.5 % Normal 0.2-2.0 [facility] Comment on above: Performed By: #### U KJ 24 #### [facility] [address] [address] [address] Ramses Dumas EO # 0.0 103/ul Normal 0.0-0.7 [facility] Comment on above: Performed By: #### U KJ 24 #### [facility] [address] [place] [address] Dr. Ramses Dumas Eosinophils/100 WBC (Bld) 0.4 % Critically low 0.9-7.0 [facility] Comment on above: Performed By: #### U KJ 24 #### [facility] [address] [place] [address] Dr. Ramses Dumas Erythrocyte distribution width (RBC) [Ratio] 13.7 % Normal 11.0-15.0 [facility] Comment on above: Performed By: #### U KJ 24 #### [facility] [address] [place] [address] Dr. Ramses Dumas Hematocrit (Bld) [Volume fraction] 45.1 % Normal 36.0-48.0 [facility] Comment on above: Performed By: #### U KJ 24 #### [facility] [address] [place] [address] Dr. Ramses Dumas Hemoglobin (Bld) [Mass/Vol] 14.3 g/dL Normal 12.0-16.0 [facility] Comment on above: Performed By: #### U KJ 24 #### [facility] [address] [place] [address] Dr. Ramses Dumas IG # 0.02 10e3/ul Normal 0.00-0.03 [facility] Comment on above: Performed By: #### U KJ 24 #### [facility] [address] [place] [address] Dr. Ramses Dumas IG % 0.2 % Normal 0.0-0.5 [facility] Comment on above: Performed By: #### U KJ 24 #### [facility] [address] [address] [address] Ramses Dumas LYMPH # 2.5 103/ul Normal 1.2-3.8 [facility] Comment on above: Performed By: #### U KJ 24 #### [facility] [address] [address] [address] Ramses Dumas Lymphocytes/100 WBC (Bld) 26.4 % Normal 20.5-60.0 [facility] Comment on above: Performed By: #### U KJ 24 #### [facility] [address] [address] [address] Ramses Dumas MANUAL DIFF REQ NO Normal [facility] Comment on above: Performed By: #### U KJ 24 #### [facility] [address] [place] [address] Dr. Ramses Dumas MCH (RBC) [Entitic mass] 25.6 pg Critically low 26.7-34.0 [facility] Comment on above: Performed By: #### U KJ 24 #### [facility] [address] [address] [address] Ramses Dumas MCHC (RBC) [Mass/Vol] 31.7 g/dL Normal 29.9-35.2 [facility] Comment on above: Performed By: #### U KJ 24 #### [facility] [address] [place] [address] Dr. Ramses Dumas MCV (RBC) [Entitic vol] 80.7 fL Critically low 81.0-99.0 [facility] Comment on above: Performed By: #### U KJ 24 #### [facility] [address] [address] [address] Ramses Dumas MONO # 0.7 103/ul Normal 0.3-0.8 [facility] Comment on above: Performed By: #### U KJ 24 #### [facility] [address] [address] [address] Ramses Dumas Monocytes/100 WBC (Bld) 7.6 % Normal 1.7-12.0 [facility] Comment on above: Performed By: #### U KJ 24 #### [facility] [address] [place] [address] Dr. Ramses Dumas NEUT # 6.1 103/ul Normal 1.4-6.5 [facility] Comment on above: Performed By: #### U KJ 24 #### [facility] [address] [place] [address] Dr. Ramses Dumas Neutrophils/100 WBC (Bld) 64.9 % Normal 43.0-75.0 [facility] Comment on above: Performed By: #### U KJ 24 #### [facility] [address] [place] [address] Dr. Ramses Dumas Platelet mean volume (Bld) [Entitic vol] 11.0 fL Normal 9.5-13.5 [facility] Comment on above: Performed By: #### U KJ 24 #### [facility] [address] [place] [address] Dr. Ramses Dumas PLT 270 103/ul Normal 150-450 [facility] Comment on above: Performed By: #### U KJ 24 #### [facility] [address] [place] [address] Dr. Ramses Dumas RBC 5.59 106/ul Critically high 4.20-5.40 [facility] Comment on above: Performed By: #### U KJ 24 #### [facility] [address] [place] [address] Dr. Ramses Dumas WBC 9.4 103/ul Normal 4.0-11.0 [facility] Comment on above: Performed By: #### U KJ 24 #### [facility] [address] [place] [address] ABD/PELV W CONon [...] by: FARTUN NOVOA Date: 2023-02-16 18:21 Normal [facility] ER URINE PROFILEon 3 Bilirubin Ql (U) SMALL Abnormal NEGATIVE [facility] Comment on above: Performed By: #### C MP #### [facility] [address] [place] [address] Dr. Ramses Dumas Clarity (U) CLEAR Normal CLEAR [facility] Comment on above: Performed By: #### C MP #### [facility] [address] [address] [address] Ramses Dumas Color (U) YELLOW Normal YELLOW [facility] Comment on above: Performed By: #### C MP #### [facility] [address] [place] [address] Dr. Ramses Dumas ERUAHD A micrscopic examination will be performed if indicated. Normal [facility] Comment on above: Performed By: #### C MP #### [facility] [address] [address] [address] Ramses Dumas Glucose Ql (U) Negative Normal NEGATIVE [facility] Comment on above: Performed By: #### C MP #### [facility] [address] [place] [address] Dr. Ramses Dumas Hemoglobin Ql (U) Negative Normal NEGATIVE [facility] Comment on above: Performed By: #### C MP #### [facility] [address] [address] [address] Ramses Dumas Ketones Ql (U) 40 mg/dl Abnormal NEGATIVE [facility] Comment on above: Performed By: #### C MP #### [facility] [address] [place] [address] Dr. Ramses Dumas LEUKOCYTES SMALL Abnormal NEGATIVE [facility] Comment on above: Performed By: #### C MP #### [facility] [address] [place] [address] Dr. Ramses Dumas Nitrite Ql (U) Negative Normal NEGATIVE [facility] Comment on above: Performed By: #### C MP #### [facility] [address] [place] [address] Dr. Ramses Dumas pH (U) 7.0 [pH] Normal 5-9 [facility] Comment on above: Performed By: #### C MP #### [facility] [address] [place] [address] Dr. Ramses Dumas Protein (U) [Mass/Vol] 30 mg/dL Abnormal NEGAT CHRIS/ TRACE [facility] Comment on above: Performed By: #### C MP #### [facility] [address] [place] [address] Dr. Ramses Dumas SPEC GRAVITY 1.020 Normal 1.005-<=1.02 5 [facility] Comment on above: Performed By: #### C MP #### [facility] [address] [place] [address] Dr. Ramses Dumas UR MICRO IND INDICATED Normal [facility] Comment on above: Performed By: #### C MP #### [facility] [address] [place], [place] [id number] Dr. Ramses Dumas Urobilinogen Qn (U) 4 {Lucero'U}/dL Abnormal 0.2 - 1.0 [facility] Comment on above: Performed By: #### C MP #### [facility] [address] [place] [address] Dr. Ramses Dumas LIPASEon 02-16-2023 Lipase [Catalytic activity/Vol] 67.0 U/L Critically low 73.0-393.0 [facility] Comment on above: Performed By: #### U RCX #### [facility] [address] [place] [address] Dr. Ramses Dumas LIVER PROFILEon 02-16-2023 Albumin [Mass/Vol] 4.1 g/dL Normal 3.4-5.0 [facility] Comment on above: Performed By: #### U RCX #### [facility] [address] [place] [address] Dr. Ramses Dumas Albumin/Globulin [Mass ratio] 1.0 {ratio} Normal [facility] Comment on above: Performed By: #### U RCX #### [facility] [address] [place] [address] Dr. Ramses Dumas ALP [Catalytic activity/Vol] 85 U/L Normal 46-116 [facility] Comment on above: Performed By: #### U RCX #### [facility] [address] [place] [address] Dr. Ramses Dumas ALT [Catalytic activity/Vol] 61 U/L Critically high 14-59 [facility] Comment on above: Performed By: #### U RCX #### [facility] [address] [place] [address] Dr. Ramses Dumas AST [Catalytic activity/Vol] 43 U/L Critically high 15-37 [facility] Comment on above: Performed By: #### U RCX #### [facility] [address] [place] [address] Dr. Ramses Dumas BILI, CONJUGATED 0.1 mg/dL Normal 0.0-0.2 [facility] Comment on above: Performed By: #### U RCX #### [facility] [address] [address] [address] Ramses Dumas Bilirubin [Mass/Vol] 0.7 mg/dL Normal 0.2-1.0 [facility] Comment on above: Performed By: #### U RCX #### [facility] [address] [address] [address] Ramses Dumas Globulin (S) [Mass/Vol] 4.2 g/dL Normal [facility] Comment on above: Performed By: #### U RCX #### [facility] [address] [address] [address] Ramses Dumas Protein [Mass/Vol] 8.3 g/dL Critically high 6.4-8.2 [facility] Comment on above: Performed By: #### U RCX #### [facility] [address] [place] [address] Dr. Ramses Dumas URon 02-16-2023 , QUAL Negative Normal NEGATIVE [facility] Comment on above: Performed By: #### C MP #### [facility] [address] [address] [address] Ramses Dumas PROF CHEM 8 (BAS METB)on Anion gap [Moles/Vol] 14.2 mmol/L Normal [facility] Comment on above: Performed By: #### U RCX #### [facility] [address] [address] [address] Ramses Dumas Calcium [Mass/Vol] 9.5 mg/dL Normal 8.5-10.1 [facility] Comment on above: Performed By: #### U RCX #### [facility] [address] [address] [address] Ramses Dumas Chloride [Moles/Vol] 102 mmol/L Normal 98-107 [facility] Comment on above: Performed By: #### U RCX #### [facility] [address] [address] [address] Ramses Dumas CO2 [Moles/Vol] 27.5 mmol/L Normal 21.0-32.0 [facility] Comment on above: Performed By: #### U RCX #### [facility] [address] [address] [address] Ramses Dumas Creatinine [Mass/Vol] 0.71 mg/dL Normal 0.55-1.02 [facility] Comment on above: Performed By: #### U RCX #### [facility] [address] [address] [address] Ramses Dumas EGFR-AF MAURITIAN >60 Normal >=60 [facility] Comment on above: Performed By: #### U RCX #### [facility] [address] [address] [address] Ramses Dumas EGFR-NON AF MAURITIAN >60 Normal >=60 [facility] Comment on above: Performed By: #### U RCX #### [facility] [address] [address] [address] Ramses Dumas Glucose [Mass/Vol] 90 mg/dL Normal 74-106 [facility] Comment on above: Performed By: #### U RCX #### [facility] [address] [address] [address] Ramses Dumas Potassium [Moles/Vol] 3.7 mmol/L Normal 3.5-5.1 [facility] Comment on above: Performed By: #### U RCX #### [facility] [address] [address] [address] Ramses Dumas Sodium [Moles/Vol] 140 mmol/L Normal 136-145 [facility] Comment on above: Performed By: #### U RCX #### [facility] [address] [address] [address] Ramses Dumas Urea nitrogen [Mass/Vol] 6.0 mg/dL Critically low 7.0-18.0 [facility] Comment on above: Performed By: #### U RCX #### [facility] [address] [address] [address] Ramses Dumas Urea nitrogen/Creatinine [Mass ratio] 8.5 mg/mg Normal [facility] Comment on above: Performed By: #### U RCX #### [facility] [address] [place] [address] Dr. Ramses Dumas URINE MICROSCOPIC ONLYon BACTERIA NONE SEEN Normal NONE SEEN [facility] Comment on above: Performed By: #### U KJ 24 #### [facility] [address] [place] [address] Dr. Ramses Dumas Bacteria identified Cx Nom (U) NOT INDICATED Normal [facility] Comment on above: Performed By: #### U KJ 24 #### [facility] [address] [place] [address] Dr. Ramses Dumas CAST NONE SEEN Normal NONE SEEN [facility] Comment on above: Performed By: #### U KJ 24 #### [facility] [address] [place] [address] Dr. Ramses Dumas Crystals LM Nom (Urine sed) NONE SEEN Normal NONE SEEN [facility] Comment on above: Performed By: #### U KJ 24 #### [facility] [address] [place] [address] Dr. Ramses Dumas Epithelial cells LM Ql (Urine sed) FEW Abnormal NONE SEEN /RARE [facility] Comment on above: Performed By: #### U KJ 24 #### [facility] [address] [place] [address] Dr. Ramses Dumas MUCOUS SMALL Abnormal NONE SEEN [facility] Comment on above: Performed By: #### U KJ 24 #### [facility] [address] [place] [address] Dr. Ramses Dumas RBC NONE SEEN Abnormal 0-2 [facility] Comment on above: Performed By: #### U KJ 24 #### [facility] [address] [place] [address] Dr. Ramses Dumas WBC 0-2 Abnormal NONE SEEN [facility] Comment on above: Performed By: #### U KJ 24 #### [facility] [address] [place] [address] Dr. Ramses Dumas PAP ACOG PANEL 2: 30 to 65on 02-10-2023 . . Normal [facility] Comment on above: Result Comment: Perf ormed at: WB Performed By: #### U RCX #### [facility] [address] [address] [address] Ramses Dumas Age Gdln ACOG Testing 30-65 Normal [facility] Comment on above: Performed By: #### U RCX #### [facility] [address] [address] [address] Ramses Dumas DIAGNOSIS: Comment Normal [facility] Comment on above: Result Comment: NEGA TIVE FOR INTRAEPITHELIAL LESION OR MALIGNANCY. REACTIVE CELLULAR CHANGES AND/OR REPAIR ARE PRESENT. Performed at: WB Performed By: #### U RCX #### [facility] [address] [address] [address] Ramses Dumas Electronically signed by: Comment Normal [facility] Comment on above: Result Comment: Chelsey Boston MD, Pathologist Performed at: WB Performed By: #### U RCX #### [facility] [address] [place] [address] Dr. Ramses Dumas HPV Aptima Negative Normal Negative [facility] Comment on above: Result Comment: This nucleic acid amplification test detects fourteen high-risk HPV types (16,18,31,33,35,39,45,51,52,56,58,59,66,68) without differentiation. Performed at: =G Performed By: #### U RCX #### [facility] [address] [place] [address] Dr. Ramses Dumas HPV Genotype Reflex Comment Normal [facility] Comment on above: Result Comment: Crit eria not met, HPV Genotype not performed. Performed at: WB Performed By: #### U RCX #### [facility] [address] [place] [address] Dr. Ramses Dumas Methodology: Comment Normal [facility] Comment on above: Result Comment: This liquid based ThinPrep(R) pap test was screened with the use of an image guided system. Performed at: WB Performed By: #### U RCX #### [facility] [address] [place] [address] Dr. Ramses Dumas Note: Comment Normal [facility] Comment on above: Result Comment: The [...] WB Performed By: #### U RCX #### [facility] [address] [place] [address] Dr. Ramses Dumas Performed by: Comment Normal [facility] Comment on above: Result Comment: Cuca Briceno, Appellate Law Clerk (ASCP) Performed at: WB Performed By: #### U RCX #### [facility] [address] [place] [address] Dr. Ramses Dumas Specimen adequacy: Comment Normal [facility] Comment on above: Result Comment: Sati sfactory for evaluation. Endocervical and/or squamous metaplastic cells (endocervical component) are present. Performed at: WB Performed By: #### U RCX #### [facility] [address] [place] [address] Dr. Ramses Dumas Lab Reportson 12-29-2022 Lab Reports [id number]:127 Normal [facility] RAD - MISCon 12-21-2022 RAD - MISC [id number]:127 Normal [facility] OXALATE 24HR URINEon 023 Oxalates, Urine 44 mg/L Normal Undefined [facility] Comment on above: Performed By: #### U KJ 24 #### [facility] [address] [place] [address] Dr. Ramses Dumas Oxalates, Urine 24hr 44 mg/24 hr Critically high 4-31 [facility] Comment on above: Performed By: #### U KJ 24 #### [facility] [address] [place] [address] Dr. Ramses Dumas CITRATE URINE 24HRon 023 Citric Acid, U, 24hr 658 mg/24 hr Normal 320-1240 [facility] Comment on above: Result Comment: This test was developed and its performance characteristics determined by [employer]. It has not been cleared or approved by the Food and Drug Administration. Performed By: #### C ITRATU #### [facility] [address] [place] [address] Dr. Ramses Dumas Citric Acid, Urine 658 mg/L Normal Undefined [facility] Comment on above: Performed By: #### C ITRATU #### [facility] [address] [place] [address] Dr. Ramses Dumas MAGNESIUM 24HR URINEon 12-17 Magnesium 24hr Urine 119.0 mg/24 hr Normal 12.0-293.0 [facility] Comment on above: Performed By: #### U RCX #### [facility] [address] [place] [address] Dr. Ramses Dumas Magnesium UR 11.9 mg/dL Normal Not Estab. [facility] Comment on above: Performed By: #### U RCX #### [facility] [address] [place] [address] Dr. Ramses Dumas PHOSPHORUS 24HR URINEon Phosphorus, Urine 81.4 mg/dL Normal Not Estab. [facility] Comment on above: Performed By: #### B LDCX2 #### [facility] [address] [place] [address] Dr. Ramses Dumas Phosphorus, Urine 24hr 814 mg/24 hr Normal 261-1078 [facility] Comment on above: Performed By: #### B LDCX2 #### [facility] [address] [place] [address] Dr. Ramses Dumas PTH INTACTon 12-17-2022 PTH, Intact 46 pg/mL Normal 15-65 [facility] Comment on above: Performed By: #### U RCX #### [facility] [address] [place] [address] Dr. Ramses Dumas URIC ACID 24 HR URINEon Uric Acid, Urine 69.9 mg/dL Normal Not Estab. [facility] Comment on above: Performed By: #### U KJ 24 #### [facility] [address] [place] [address] Dr. Ramses Dumas Uric Acid, Urine 24hr 699.0 mg/24 hr Normal 173.7-902. 1 [facility] Comment on above: Performed By: #### U KJ 24 #### [facility] [address] [place] [address] Dr. Ramses Dumas BUNon 12-16-2022 Urea nitrogen [Mass/Vol] 7.0 mg/dL Normal 7.0-18.0 [facility] Comment on above: Performed By: #### C BC #### [facility] [address] [place] [address] Dr. Ramses Dumas CALCIUMon 12-16-2022 Calcium [Mass/Vol] 8.8 mg/dL Normal 8.5-10.1 [facility] Comment on above: Performed By: #### C BC #### [facility] [address] [place] [address] Dr. Ramses Dumas CALCIUM 24 HR URINEon 2022 CALC, 24 HR UR 295.0 mg/24 hr Normal 100.0-300.0 [facility] Comment on above: Performed By: #### B LDCX2 #### [facility] [address] [place] [address] Dr. Ramses Dumas UR CALCIUM 29.5 mg/dL Critically high 5.1-21.0 [facility] Comment on above: Performed By: #### B LDCX2 #### [facility] [address] [place] [address] Dr. Ramses Dumas CHLORIDEon 12-16-2022 Chloride [Moles/Vol] 105 mmol/L Normal 98-107 [facility] Comment on above: Performed By: #### C BC #### [facility] [address] [place] [address] Dr. Ramses Dumas CO2on 12-16-2022 CO2 [Moles/Vol] 26.4 mmol/L Normal 21.0-32.0 [facility] Comment on above: Performed By: #### C MP #### [facility] [address] [place] [address] Dr. Ramses Dumas CREA 24 HR URINEon 3 CREA, 24 HR UR 2337.30 mg/24 hr Critically high 800.00 -1,800 .00 [facility] Comment on above: Performed By: #### C VDTBH #### [facility] [address] [place] [address] Dr. Ramses Dumas URINE CREAT 233.73 mg/dL Normal 20.00-300.00 [facility] Comment on above: Performed By: #### C VDTBH #### [facility] [address] [address] [address] Ramses Dumas CREATININEon 12-16-2022 Creatinine [Mass/Vol] 0.70 mg/dL Normal 0.55-1.02 [facility] Comment on above: Performed By: #### C MP #### [facility] [address] [place] [address] Dr. Ramses Dumas EGFR-AF MAURITIAN >60 Normal >=60 [facility] Comment on above: Performed By: #### C MP #### [facility] [address] [place] [address] Dr. Ramses Dumas EGFR-NON AF MAURITIAN >60 Normal >=60 [facility] Comment on above: Performed By: #### C MP #### [facility] [address] [place] [address] Dr. Ramses Dumas NAon 12-16-2022 Sodium [Moles/Vol] 139 mmol/L Normal 136-145 [facility] Comment on above: Performed By: #### C MP #### [facility] [address] [place] [address] Dr. Ramses Dumas POTASSIUMon 12-16-2022 Potassium [Moles/Vol] 4.0 mmol/L Normal 3.5-5.1 [facility] Comment on above: Performed By: #### C MP #### [facility] [address] [place] [address] Dr. Ramses Dumas SODIUM 24 HR URINEon 12-16- 023 NA, 24 HR UR 193 mmol/24 hr Normal 40-220 [facility] Comment on above: Performed By: #### C VDTBH #### [facility] [address] [place] [address] Dr. Ramses Dumas Sodium (U) [Moles/Vol] 193 mmol/L Critically high 30-90 [facility] Comment on above: Performed By: #### C VDTBH #### [facility] [address] [place] [address] Dr. Ramses Dumas UR TOT VOL 1000 ml/24 HR Normal [facility] Comment on above: Performed By: #### C VDTBH #### [facility] [address] [place] [address] Dr. Ramses Dumas Performed By: #### B LDCX2 #### [facility] [address] [place] [address] Dr. Ramses Dumas URIC ACID SERUMon 12-16-2022 Urate [Mass/Vol] 5.6 mg/dL Normal 2.6-6.0 [facility] Comment on above: Performed By: #### C MP #### [facility] [address] [place] [address] Dr. Ramses Dumas XR KUB 1 VIEWon [...] JENNIFER GATES Date: 2022-12-15 08:26 Normal [facility] CBC AUTO DIFFon 11-07-2022 BASO # 0.0 103/ul Normal 0.0-0.1 [facility] Comment on above: Performed By: #### U RCX #### [facility] [address] [place] [address] Dr. Ramses Dumas Basophils/100 WBC (Bld) 0.7 % Normal 0.2-2.0 [facility] Comment on above: Performed By: #### U RCX #### [facility] [address] [place] [address] Dr. Ramses Dumas EO # 0.1 103/ul Normal 0.0-0.7 [facility] Comment on above: Performed By: #### U RCX #### [facility] [address] [place] [address] Dr. Ramses Dumas Eosinophils/100 WBC (Bld) 1.9 % Normal 0.9-7.0 [facility] Comment on above: Performed By: #### U RCX #### [facility] [address] [place] [address] Dr. Ramses Dumas Erythrocyte distribution width (RBC) [Ratio] 13.6 % Normal 11.0-15.0 [facility] Comment on above: Performed By: #### U RCX #### [facility] [address] [place] [address] Dr. Ramses Dumas Hematocrit (Bld) [Volume fraction] 37.3 % Normal 36.0-48.0 [facility] Comment on above: Performed By: #### U RCX #### [facility] [address] [place] [address] Dr. aRmses Dumas Hemoglobin (Bld) [Mass/Vol] 12.2 g/dL Normal 12.0-16.0 [facility] Comment on above: Performed By: #### U RCX #### [facility] [address] [place] [address] Dr. Ramses Dumas IG # 0.02 10e3/ul Normal 0.00-0.03 [facility] Comment on above: Performed By: #### U RCX #### [facility] [address] [place] [address] Dr. Ramses Dumas IG % 0.3 % Normal 0.0-0.5 [facility] Comment on above: Performed By: #### U RCX #### [facility] [address] [place] [address] Dr. Ramses Dumas LYMPH # 2.3 103/ul Normal 1.2-3.8 [facility] Comment on above: Performed By: #### U RCX #### [facility] [address] [place] [address] Dr. Ramses Dumas Lymphocytes/100 WBC (Bld) 39.6 % Normal 20.5-60.0 [facility] Comment on above: Performed By: #### U RCX #### [facility] [address] [place] [address] Dr. Ramses Dumas MANUAL DIFF REQ NO Normal [facility] Comment on above: Performed By: #### U RCX #### [facility] [address] [place] [address] Dr. Ramses Dumas MCH (RBC) [Entitic mass] 26.4 pg Critically low 26.7-34.0 [facility] Comment on above: Performed By: #### U RCX #### [facility] [address] [place] [address] Dr. Ramses Dumas MCHC (RBC) [Mass/Vol] 32.7 g/dL Normal 29.9-35.2 [facility] Comment on above: Performed By: #### U RCX #### [facility] [address] [place] [address] Dr. Ramses Dumas MCV (RBC) [Entitic vol] 80.7 fL Critically low 81.0-99.0 [facility] Comment on above: Performed By: #### U RCX #### [facility] [address] [place] [address] Dr. Ramses Dumas MONO # 0.5 103/ul Normal 0.3-0.8 [facility] Comment on above: Performed By: #### U RCX #### [facility] [address] [place] [address] Dr. Ramses Dumas Monocytes/100 WBC (Bld) 8.0 % Normal 1.7-12.0 [facility] Comment on above: Performed By: #### U RCX #### [facility] [address] [place] [address] Dr. Ramses Dumas NEUT # 2.9 103/ul Normal 1.4-6.5 [facility] Comment on above: Performed By: #### U RCX #### [facility] [address] [place] [address] Dr. Ramses Dmuas Neutrophils/100 WBC (Bld) 49.5 % Normal 43.0-75.0 [facility] Comment on above: Performed By: #### U RCX #### [facility] [address] [place] [address] Dr. Ramses Dumas Platelet mean volume (Bld) [Entitic vol] 9.0 fL Critically low 9.5-13.5 [facility] Comment on above: Performed By: #### U RCX #### [facility] [address] [place] [address] Dr. Ramses Dumas PLT 337 103/ul Normal 150-450 [facility] Comment on above: Performed By: #### U RCX #### [facility] [address] [place] [address] Dr. Ramses Dumas RBC 4.62 106/ul Normal 4.20-5.40 [facility] Comment on above: Performed By: #### U RCX #### [facility] [address] [place] [address] Dr. Ramses Dumas WBC 5.9 103/ul Normal 4.0-11.0 [facility] Comment on above: Performed By: #### U RCX #### [facility] [address] [place] [address] Dr. Ramses Dumas POINT OF CARE GLUCOSEon 10-20 Glucose [Mass/Vol] 115 mg/dL Critically high 74-106 [facility] Comment on above: Performed By: #### C VDTBH #### [facility] [address] [place] [address] Dr. Ramses Dumas PREG QUANT HCGon 11-07-2022 HCG QUANT <1 Normal [facility] Comment on above: Performed By: #### C VDTBH #### [facility] [address] [place] [address] Dr. Ramses Dumas HCG RANGE SEE BELOW Normal [facility] Comment on above: Result Comment: 5-50 0.2-1 WEEK 50-500 1-2 WEEKS 100-5,000 2-3 WEEKS 500-10,000 3-4 WEEKS 1,000-50,000 4-5 WEEKS 10,000-100,000 5-6 WEEKS 15,000-200,000 6-8 WEEKS 10,000-100,000 2-3 MONTHS Performed By: #### [facility] #### [facility] [address] [address] [address] Ramses Dumas US PELVIS AND TRANSVAGon [...] cm right ovarian simple cyst Normal [facility] CBC AUTO DIFFon 11-03-2022 BASO # 0.1 103/ul Normal 0.0-0.1 [facility] Comment on above: Performed By: #### U RCX #### [facility] [address] [address] [address] Ramses Dumas Basophils/100 WBC (Bld) 0.8 % Normal 0.2-2.0 [facility] Comment on above: Performed By: #### U RCX #### [facility] [address] [address] [address] Ramses Dumas EO # 0.1 103/ul Normal 0.0-0.7 [facility] Comment on above: Performed By: #### U RCX #### [facility] [address] [place] [address] Dr. Ramses Dumas Eosinophils/100 WBC (Bld) 1.4 % Normal 0.9-7.0 [facility] Comment on above: Performed By: #### U RCX #### [facility] [address] [place] [address] Dr. Ramses Dumas Erythrocyte distribution width (RBC) [Ratio] 13.4 % Normal 11.0-15.0 [facility] Comment on above: Performed By: #### U RCX #### [facility] [address] [place] [address] Dr. Ramses Dumas Hematocrit (Bld) [Volume fraction] 38.8 % Normal 36.0-48.0 [facility] Comment on above: Performed By: #### U RCX #### [facility] [address] [place] [address] Dr. Ramses Dumas Hemoglobin (Bld) [Mass/Vol] 12.7 g/dL Normal 12.0-16.0 [facility] Comment on above: Performed By: #### U RCX #### [facility] [address] [place] [address] Dr. Ramses Dumas IG # 0.01 10e3/ul Normal 0.00-0.03 [facility] Comment on above: Performed By: #### U RCX #### [facility] [address] [place] [address] Dr. Ramses Dumas IG % 0.1 % Normal 0.0-0.5 [facility] Comment on above: Performed By: #### U RCX #### [facility] [address] [place] [address] Dr. Ramses Dumas LYMPH # 1.9 103/ul Normal 1.2-3.8 [facility] Comment on above: Performed By: #### U RCX #### [facility] [address] [place] [address] Dr. Ramses Dumas Lymphocytes/100 WBC (Bld) 26.4 % Normal 20.5-60.0 [facility] Comment on above: Performed By: #### U RCX #### [facility] [address] [place] [address] Dr. Ramses Dumas MANUAL DIFF REQ NO Normal [facility] Comment on above: Performed By: #### U RCX #### [facility] [address] [place] [address] Dr. Ramses Dumas MCH (RBC) [Entitic mass] 26.3 pg Critically low 26.7-34.0 [facility] Comment on above: Performed By: #### U RCX #### [facility] [address] [place] [address] Dr. Rasmes Dumas MCHC (RBC) [Mass/Vol] 32.7 g/dL Normal 29.9-35.2 [facility] Comment on above: Performed By: #### U RCX #### [facility] [address] [place] [address] Dr. Ramses Dumas MCV (RBC) [Entitic vol] 80.5 fL Critically low 81.0-99.0 [facility] Comment on above: Performed By: #### U RCX #### [facility] [address] [place] [address] Dr. Ramses Dumas MONO # 0.6 103/ul Normal 0.3-0.8 [facility] Comment on above: Performed By: #### U RCX #### [facility] [address] [place] [address] Dr. Ramses Dumas Monocytes/100 WBC (Bld) 8.2 % Normal 1.7-12.0 [facility] Comment on above: Performed By: #### U RCX #### [facility] [address] [place] [address] Dr. Ramses Dumas NEUT # 4.5 103/ul Normal 1.4-6.5 [facility] Comment on above: Performed By: #### U RCX #### [facility] [address] [place] [address] Dr. Ramses Dumas Neutrophils/100 WBC (Bld) 63.1 % Normal 43.0-75.0 [facility] Comment on above: Performed By: #### U RCX #### [facility] [address] [place] [address] Dr. Ramses Dumas Platelet mean volume (Bld) [Entitic vol] 8.9 fL Critically low 9.5-13.5 [facility] Comment on above: Performed By: #### U RCX #### [facility] [address] [place] [address] Dr. Ramses Dumas PLT 340 103/ul Normal 150-450 [facility] Comment on above: Performed By: #### U RCX #### [facility] [address] [place] [address] Dr. Ramses Dumas RBC 4.82 106/ul Normal 4.20-5.40 [facility] Comment on above: Performed By: #### U RCX #### [facility] [address] [place] [address] Dr. Ramses Dumas WBC 7.1 103/ul Normal 4.0-11.0 [facility] Comment on above: Performed By: #### U RCX #### [facility] [address] [place] [address] Dr. Ramses Dumas [facility] SARS-CoV-2 (COVID-19) RNA FRANCESCA+probe Ql (Unsp spec) Not detected Normal NOT DETECTED [facility] Comment on above: Result Comment: This test is not yet approved or cleared by the [place] FDA. When there are no FDA-approved or cleared tests available, and other criteria are met, FDA can make tests available under an emergency access mechanism called an Emergency Use Authorization (EUA). The EUA for this test is supported by the [employer] Installer of Health and Human Service's (HHS's) [...] SARS-CoV-2. Performed By: #### U RCX #### [facility] [address] [place] [address] Dr. Ramses Dumas FREE T4on 11-03-2022 Free T4 [Mass/Vol] 0.99 ng/dL Normal 0.76-1.46 [facility] Comment on above: Performed By: #### B LDCX2 #### [facility] [address] [place] [address] Dr. Ramses Dumas GLYCOHEMOGLOBIN A1Con 2022 ADA RECOMMENDATION SEE BELOW Normal [facility] Comment on above: Result Comment: ADA RECOMMENDED LIMIT 4.0 - 6.0 ADA THERAPEUTIC TARGET < 7.0 ACTION SUGGESTED > 7.0 Performed By: #### C VDTBH #### [facility] [address] [place] [address] Dr. Ramses Dumas Glucose [Mass/Vol] 117 mg/dL Normal [facility] Comment on above: Performed By: #### C VDTBH #### [facility] [address] [place] [address] Dr. Ramses Dumas HbA1c (Bld) [Mass fraction] 5.7 % Normal 4.5-6.2 [facility] Comment on above: Performed By: #### C VDTBH #### [facility] [address] [place] [address] Dr. Ramses Dumas PROTIMEon 11-03-2022 INR Coag (PPP) [Relative time] 0.97 {INR} Normal [facility] Comment on above: Performed By: #### U KJ 24 #### [facility] [address] [place] [address] Dr. Ramses Dumas INR GUIDELINES SEE BELOW Normal [facility] Comment on above: Result Comment: TOÑA RED INR: 2.0 - 3.0 CONDITIONS NOT LISTED BELOW 2.5 - 3.5 FOR PROSTHETIC HEART VALVE REPLACEMENT 2.5 - 3.5 RECURRENT THROMBOSIS Performed By: #### U KJ 24 #### [facility] [address] [place] [address] Dr. Ramses Dumas PT Coag (PPP) [Time] 10.3 s Normal 9.0-11.6 [facility] Comment on above: Performed By: #### U KJ 24 #### [facility] [address] [place] [address] Dr. Ramses Dumas PTTon 11-03-2022 aPTT Coag (Bld) [Time] 27.7 s Normal 22.3-36.2 [facility] Comment on above: Performed By: #### U KJ 24 #### [facility] [address] [place] [address] Dr. Ramses Dumas TSHon 11-03-2022 TSH 0.667 uIU/mL Normal 0.358-3.740 [facility] Comment on above: Performed By: #### C VDTBH #### [facility] [address] [place] [address] Dr. Ramses Dumas PREG HCG QUALon 09-18-2022 , QUAL Negative Normal NEGATIVE [facility] Comment on above: Performed By: #### U KJ 24 #### [facility] [address] [place] [address] Dr. Ramses Dumas Covid-19 PCR ([facility])on 08-20 SARS-CoV-2 (COVID-19) RNA FRANCESCA+probe Ql (Unsp spec) Not detected Normal NOT DETECTED [facility] Comment on above: Result Comment: This test is not yet approved or cleared by the [place] FDA. When there are no FDA-approved or cleared tests available, and other criteria are met, FDA can make tests available under an emergency access mechanism called an Emergency Use Authorization (EUA). The EUA for this test is supported by the Stephen of Health and Human Service's (HHS's) declaration [...] SARS-CoV-2. Performed By: #### C VDTBH #### [facility] [address] [place] [address] Dr. Ramses Dumas CBC AUTO DIFFon 09-05-2022 BASO # 0.1 103/ul Normal 0.0-0.1 [facility] Comment on above: Performed By: #### B [id number] #### [facility] [address] [place] [address] Dr. Ramses Dumas Basophils/100 WBC (Bld) 0.7 % Normal 0.2-2.0 [facility] Comment on above: Performed By: #### B LDCX2 #### [facility] [address] [place] [address] Dr. Ramses Dumas EO # 0.2 103/ul Normal 0.0-0.7 [facility] Comment on above: Performed By: #### B LDCX2 #### [facility] [address] [place] [address] Dr. Ramses Dumas Eosinophils/100 WBC (Bld) 2.2 % Normal 0.9-7.0 [facility] Comment on above: Performed By: #### B [id number] #### [facility] [address] [place] [address] Dr. Ramses Dumas Erythrocyte distribution width (RBC) [Ratio] 13.9 % Normal 11.0-15.0 [facility] Comment on above: Performed By: #### B LDCX2 #### [facility] [address] [place] [address] Dr. Ramses Dumas Hematocrit (Bld) [Volume fraction] 38.8 % Normal 36.0-48.0 [facility] Comment on above: Performed By: #### B [id number] #### [facility] [address] [place] [address] Dr. Ramses Dumas Hemoglobin (Bld) [Mass/Vol] 12.6 g/dL Normal 12.0-16.0 [facility] Comment on above: Performed By: #### B [id number] #### [facility] [address] [place] [address] Dr. aRmses Dumas IG # 0.03 10e3/ul Normal 0.00-0.03 [facility] Comment on above: Performed By: #### B [id number] #### [facility] [address] [place] [address] Dr. Ramses Dumas IG % 0.3 % Normal 0.0-0.5 [facility] Comment on above: Performed By: #### B [id number] #### [facility] [address] [place] [address] Dr. Ramses Dumas LYMPH # 2.3 103/ul Normal 1.2-3.8 [facility] Comment on above: Performed By: #### B LDCX2 #### [facility] [address] [place] [address] Dr. Ramses Dumas Lymphocytes/100 WBC (Bld) 21.3 % Normal 20.5-60.0 [facility] Comment on above: Performed By: #### B [id number] #### [facility] [address] [place] [address] Dr. Ramses Dumas MANUAL DIFF REQ NO Normal [facility] Comment on above: Performed By: #### B [id number] #### [facility] [address] [place] [address] Dr. Ramses Dumas MCH (RBC) [Entitic mass] 26.4 pg Critically low 26.7-34.0 [facility] Comment on above: Performed By: #### B [id number] #### [facility] [address] [place] [address] Dr. Ramses Dumas MCHC (RBC) [Mass/Vol] 32.5 g/dL Normal 29.9-35.2 [facility] Comment on above: Performed By: #### B LDCX2 #### [facility] [address] [place] [address] Dr. Ramses Dumas MCV (RBC) [Entitic vol] 81.2 fL Normal 81.0-99.0 [facility] Comment on above: Performed By: #### B [id number] #### [facility] [address] [place] [address] Dr. Ramses Dumas MONO # 0.8 103/ul Normal 0.3-0.8 [facility] Comment on above: Performed By: #### B [id number] #### [facility] [address] [place] [address] Dr. Ramses Dumas Monocytes/100 WBC (Bld) 7.4 % Normal 1.7-12.0 [facility] Comment on above: Performed By: #### B [id number] #### [facility] [address] [place] [address] Dr. Ramses Dumas NEUT # 7.3 103/ul Critically high 1.4-6.5 [facility] Comment on above: Performed By: #### B LDCX2 #### [facility] [address] [place] [address] Dr. Ramses Dumas Neutrophils/100 WBC (Bld) 68.1 % Normal 43.0-75.0 [facility] Comment on above: Performed By: #### B [id number] #### [facility] [address] [place] [address] Dr. Ramses Dumas Platelet mean volume (Bld) [Entitic vol] 8.8 fL Critically low 9.5-13.5 [facility] Comment on above: Performed By: #### B [id number] #### [facility] [address] [place] [address] Dr. Ramses Dumas PLT 323 103/ul Normal 150-450 [facility] Comment on above: Performed By: #### B [id number] #### [facility] [address] [place] [address] Dr. Ramses Dumas RBC 4.78 106/ul Normal 4.20-5.40 [facility] Comment on above: Performed By: #### B [id number] #### [facility] [address] [place] [address] Dr. Ramses Dumas WBC 10.7 103/ul Normal 4.0-11.0 [facility] Comment on above: Performed By: #### B [id number] #### [facility] [address] [place] [address] Dr. Ramses Dumas CULTURE URINEon 09-05-2022 CULTURE URINE Culture Observations : LIGHT GROWTH OF MIXED GENITAL DAIANA. NO POTENTIAL PATHOGENS SEEN. Normal [facility] Comment on above: Performed By: #### U RCX #### [facility] [address] [place] [address] Dr. Ramses Dumas ER URINE PROFILEon Bilirubin Ql (U) Negative Normal NEGATIVE [facility] Comment on above: Performed By: #### B LDCX2 #### [facility] [address] [place] [address] Dr. Ramses Dumas Clarity (U) CLOUDY Abnormal CLEAR [facility] Comment on above: Performed By: #### B [id number] #### [facility] [address] [place] [address] Dr. Ramses Dumas Color (U) YELLOW Normal YELLOW [facility] Comment on above: Performed By: #### B [id number] #### [facility] [address] [place] [address] Dr. Ramses Dumas ERUCARLOS ENRIQUE A micrscopic examination will be performed if indicated. Normal [facility] Comment on above: Performed By: #### B LDCX2 #### [facility] [address] [place] [address] Dr. Ramses Dumas Glucose Ql (U) Negative Normal NEGATIVE [facility] Comment on above: Performed By: #### B LDCX2 #### [facility] [address] [place] [address] Dr. Ramses Dumas Hemoglobin Ql (U) LARGE Abnormal NEGATIVE [facility] Comment on above: Performed By: #### B LDCX2 #### [facility] [address] [place] [address] Dr. Ramses Dumas Ketones Ql (U) Negative Normal NEGATIVE [facility] Comment on above: Performed By: #### B LDCX2 #### [facility] [address] [place] [address] Dr. Ramses Dumas LEUKOCYTES SMALL Abnormal NEGATIVE [facility] Comment on above: Performed By: #### B LDCX2 #### [facility] [address] [place] [address] Dr. Ramses Dumas Nitrite Ql (U) Negative Normal NEGATIVE [facility] Comment on above: Performed By: #### B LDCX2 #### [facility] [address] [place] [address] Dr. Ramses Dumas pH (U) 6.0 [pH] Normal 5-9 [facility] Comment on above: Performed By: #### B LDCX2 #### [facility] [address] [place] [address] Dr. Ramses Dumas Protein (U) [Mass/Vol] 100 mg/dL Abnormal NEGAT CHRIS/ TRACE [facility] Comment on above: Performed By: #### B LDCX2 #### [facility] [address] [place] [address] Dr. Ramses Dumas SPEC GRAVITY >=1.030 Abnormal 1.005-<=1.02 5 [facility] Comment on above: Performed By: #### B LDCX2 #### [facility] [address] [place] [address] Dr. Ramses Dumas UR MICRO IND INDICATED Normal [facility] Comment on above: Performed By: #### B LDCX2 #### [facility] [address] [place] [address] Dr. Ramses Dumas Urobilinogen Qn (U) 0.2 {Lucero'U}/dL Normal 0.2 - 1. 0 [facility] Comment on above: Performed By: #### B LDCX2 #### [facility] [address] [place] [address] Dr. Ramses Dumas URon 09-05-2022 , QUAL Negative Normal NEGATIVE [facility] Comment on above: Performed By: #### B LDCX2 #### [facility] [address] [place] [address] Dr. Ramses Dumas PROF CHEM 8 (BAS METB)on Anion gap [Moles/Vol] 11.7 mmol/L Normal [facility] Comment on above: Performed By: #### C MP #### [facility] [address] [address] [address] Ramses Dumas Calcium [Mass/Vol] 9.1 mg/dL Normal 8.5-10.1 [facility] Comment on above: Performed By: #### C MP #### [facility] [address] [address] [address] Ramses Dumas Chloride [Moles/Vol] 103 mmol/L Normal 98-107 [facility] Comment on above: Performed By: #### C MP #### [facility] [address] [place] [address] Dr. Ramses Dumas CO2 [Moles/Vol] 25.9 mmol/L Normal 21.0-32.0 [facility] Comment on above: Performed By: #### C MP #### [facility] [address] [place] [address] Dr. Ramses Dumas Creatinine [Mass/Vol] 0.77 mg/dL Normal 0.55-1.02 [facility] Comment on above: Performed By: #### C MP #### [facility] [address] [place] [address] Dr. Ramses Dumas EGFR-AF MAURITIAN >60 Normal >=60 [facility] Comment on above: Performed By: #### C MP #### [facility] [address] [address] [address] Ramses Dumas EGFR-NON AF MAURITIAN >60 Normal >=60 [facility] Comment on above: Performed By: #### C MP #### [facility] [address] [address] [address] Ramses Dumas Glucose [Mass/Vol] 124 mg/dL Critically high 74-106 [facility] Comment on above: Performed By: #### C MP #### [facility] [address] [address] [address] Ramses Dumas Potassium [Moles/Vol] 3.6 mmol/L Normal 3.5-5.1 [facility] Comment on above: Performed By: #### C MP #### [facility] [address] [address] [address] Ramses Dumas Sodium [Moles/Vol] 137 mmol/L Normal 136-145 [facility] Comment on above: Performed By: #### C MP #### [facility] [address] [place] [address] Dr. Ramses Dumas Urea nitrogen [Mass/Vol] 12.0 mg/dL Normal 7.0-18.0 [facility] Comment on above: Performed By: #### C MP #### [facility] [address] [place] [address] Dr. Ramses Dumas Urea nitrogen/Creatinine [Mass ratio] 15.6 mg/mg Normal [facility] Comment on above: Performed By: #### C MP #### [facility] [address] [place] [address] Dr. Ramses Dumas URINE MICROSCOPIC ONLYon AMORPHOUS CRYSTALS RARE Normal [facility] Comment on above: Performed By: #### B [id number] #### [facility] [address] [place] [address] Dr. Ramses Dumas BACTERIA TRACE Abnormal NONE SEEN [facility] Comment on above: Performed By: #### B LDCX2 #### [facility] [address] [place] [address] Dr. Ramses Dumas Bacteria identified Cx Nom (U) INDICATED Normal [facility] Comment on above: Performed By: #### B LDCX2 #### [facility] [address] [place] [address] Dr. Ramses Dumas CA OX CRYSTALS RARE Normal [facility] Comment on above: Performed By: #### B LDCX2 #### [facility] [address] [place] [address] Dr. Ramses Dumas CAST NONE SEEN Normal NONE SEEN [facility] Comment on above: Performed By: #### B LDCX2 #### [facility] [address] [place] [address] Dr. Ramses Dumas Crystals LM Nom (Urine sed) SEEN Abnormal NONE SEEN [facility] Comment on above: Performed By: #### B LDCX2 #### [facility] [address] [place] [address] Dr. Ramses Dumas Epithelial cells LM Ql (Urine sed) FEW Abnormal NONE SEEN /RARE [facility] Comment on above: Performed By: #### B LDCX2 #### [facility] [address] [place] [address] Dr. Ramses Dumas MUCOUS TRACE Abnormal NONE SEEN [facility] Comment on above: Performed By: #### B LDCX2 #### [facility] [address] [place] [address] Dr. Ramses Dumas RBC 50-75 Abnormal 0-2 [facility] Comment on above: Performed By: #### B LDCX2 #### [facility] [address] [place] [address] Dr. Ramses Dumas WBC 20-50 Abnormal NONE SEEN [facility] Comment on above: Performed By: #### B LDCX2 #### [facility] [address] [place] [address] Dr. Ramses Dumas YEAST PRESENT Abnormal NONE SEEN [facility] Comment on above: Performed By: #### B LDCX2 #### [facility] [address] [place] [address] Dr. Ramses Dumas US KIDNEYSon 09-05-2022 US [...] GLEN GRAFF Date: 2022-09-05 11:00 Normal [facility] CT ABD/PELVIS WO CONon 08-29 CT [...] ERICKA IGLESIAS Date: 2022-08-29 01:10 Normal [facility] CULTURE URINEon 08-29-2022 CULTURE URINE Culture Observations : LIGHT GROWTH OF MIXED GENITAL DAIANA. NO POTENTIAL PATHOGENS SEEN. Normal [facility] Comment on above: Performed By: #### U RCX #### [facility] [address] [place] [address] Dr. Ramses Dumas CBC AUTO DIFFon 08-28-2022 BASO # 0.1 103/ul Normal 0.0-0.1 [facility] Comment on above: Performed By: #### U RCX #### [facility] [address] [place] [address] Dr. Ramses Dumas Basophils/100 WBC (Bld) 0.5 % Normal 0.2-2.0 [facility] Comment on above: Performed By: #### U RCX #### [facility] [address] [place] [address] Dr. Ramses Dumas EO # 0.3 103/ul Normal 0.0-0.7 [facility] Comment on above: Performed By: #### U RCX #### [facility] [address] [place] [address] Dr. Ramses Dumas Eosinophils/100 WBC (Bld) 2.3 % Normal 0.9-7.0 [facility] Comment on above: Performed By: #### U RCX #### [facility] [address] [place] [address] Dr. Ramses Dumas Erythrocyte distribution width (RBC) [Ratio] 13.7 % Normal 11.0-15.0 [facility] Comment on above: Performed By: #### U RCX #### [facility] [address] [place] [address] Dr. Ramses Dumas Hematocrit (Bld) [Volume fraction] 36.7 % Normal 36.0-48.0 [facility] Comment on above: Performed By: #### U RCX #### [facility] [address] [place] [address] Dr. Ramses Dumas Hemoglobin (Bld) [Mass/Vol] 12.3 g/dL Normal 12.0-16.0 [facility] Comment on above: Performed By: #### U RCX #### [facility] [address] [place] [address] Dr. Ramses Dumas IG # 0.16 10e3/ul Critically high 0.00-0.03 [facility] Comment on above: Performed By: #### U RCX #### [facility] [address] [place] [address] Dr. Ramses Dumas IG % 1.1 % Critically high 0.0-0.5 [facility] Comment on above: Performed By: #### U RCX #### [facility] [address] [place] [address] Dr. Ramses Dumas LYMPH # 4.6 103/ul Critically high 1.2-3.8 [facility] Comment on above: Performed By: #### U RCX #### [facility] [address] [place] [address] Dr. Ramses Dumas Lymphocytes/100 WBC (Bld) 31.8 % Normal 20.5-60.0 [facility] Comment on above: Performed By: #### U RCX #### [facility] [address] [place] [address] Dr. Ramses Dumas MANUAL DIFF REQ NO Normal [facility] Comment on above: Performed By: #### U RCX #### [facility] [address] [place] [address] Dr. Ramses Dumas MCH (RBC) [Entitic mass] 26.9 pg Normal 26.7-34.0 [facility] Comment on above: Performed By: #### U RCX #### [facility] [address] [place] [address] Dr. Ramses Dumas MCHC (RBC) [Mass/Vol] 33.5 g/dL Normal 29.9-35.2 [facility] Comment on above: Performed By: #### U RCX #### [facility] [address] [place] [address] Dr. Ramses Dumas MCV (RBC) [Entitic vol] 80.3 fL Critically low 81.0-99.0 [facility] Comment on above: Performed By: #### U RCX #### [facility] [address] [place] [address] Dr. Ramses Dumas MONO # 1.0 103/ul Critically high 0.3-0.8 [facility] Comment on above: Performed By: #### U RCX #### [facility] [address] [place] [address] Dr. Ramses Dumas Monocytes/100 WBC (Bld) 7.0 % Normal 1.7-12.0 [facility] Comment on above: Performed By: #### U RCX #### [facility] [address] [place] [address] Dr. Ramses Dumas NEUT # 8.2 103/ul Critically high 1.4-6.5 [facility] Comment on above: Performed By: #### U RCX #### [facility] [address] [place] [address] Dr. Ramses Dumas Neutrophils/100 WBC (Bld) 57.3 % Normal 43.0-75.0 [facility] Comment on above: Performed By: #### U RCX #### [facility] [address] [place] [address] Dr. Ramses Dumas Platelet mean volume (Bld) [Entitic vol] 8.6 fL Critically low 9.5-13.5 [facility] Comment on above: Performed By: #### U RCX #### [facility] [address] [place] [address] Dr. Ramses Dumas PLT 395 103/ul Normal 150-450 [facility] Comment on above: Performed By: #### U RCX #### [facility] [address] [place] [address] Dr. Ramses Dmuas RBC 4.57 106/ul Normal 4.20-5.40 [facility] Comment on above: Performed By: #### U RCX #### [facility] [address] [place] [address] Dr. Ramses Dumas WBC 14.3 103/ul Critically high 4.0-11.0 [facility] Comment on above: Performed By: #### U RCX #### [facility] [address] [place] [address] Dr. Ramses Dumas ER URINE PROFILEon 2 Bilirubin Ql (U) Negative Normal NEGATIVE [facility] Comment on above: Performed By: #### U KJ 24 #### [facility] [address] [place] [address] Dr. Ramses Dumas Clarity (U) CLEAR Normal CLEAR [facility] Comment on above: Performed By: #### U KJ 24 #### [facility] [address] [place] [address] Dr. Ramses Dumas Color (U) LT. YELLOW Normal YELLOW [facility] Comment on above: Performed By: #### U KJ 24 #### [facility] [address] [place] [address] Dr. Ramses Dumas ERUAHD A micrscopic examination will be performed if indicated. Normal [facility] Comment on above: Performed By: #### U KJ 24 #### [facility] [address] [place] [address] Dr. Ramses Dumas Glucose Ql (U) Negative Normal NEGATIVE [facility] Comment on above: Performed By: #### U KJ 24 #### [facility] [address] [place] [address] Dr. Ramses Dumas Hemoglobin Ql (U) LARGE Abnormal NEGATIVE [facility] Comment on above: Performed By: #### U KJ 24 #### [facility] [address] [place] [address] Dr. Ramses Dumas Ketones Ql (U) Negative Normal NEGATIVE [facility] Comment on above: Performed By: #### U KJ 24 #### [facility] [address] [place] [address] Dr. Ramses Dumas LEUKOCYTES MODERATE Abnormal NEGATIVE [facility] Comment on above: Performed By: #### U KJ 24 #### [facility] [address] [place] [address] Dr. Ramses Dumas Nitrite Ql (U) Negative Normal NEGATIVE [facility] Comment on above: Performed By: #### U KJ 24 #### [facility] [address] [place] [address] Dr. Ramses Dumas pH (U) 6.5 [pH] Normal 5-9 [facility] Comment on above: Performed By: #### U KJ 24 #### [facility] [address] [place] [address] Dr. Ramses Dumas Protein (U) [Mass/Vol] 100 mg/dL Abnormal NEGAT CHRIS/ TRACE [facility] Comment on above: Performed By: #### U KJ 24 #### [facility] [address] [place] [address] Dr. Ramses Dumas SPEC GRAVITY 1.020 Normal 1.005-<=1.02 5 [facility] Comment on above: Performed By: #### U KJ 24 #### [facility] [address] [place] [address] Dr. Ramses Dumas UR MICRO IND INDICATED Normal [facility] Comment on above: Performed By: #### U KJ 24 #### [facility] [address] [place] [address] Dr. Ramses Dumas Urobilinogen Qn (U) 0.2 {Lucero'U}/dL Normal 0.2 - 1. 0 [facility] Comment on above: Performed By: #### U KJ 24 #### [facility] [address] [place] [address] Dr. Ramses Dumas PROF 14(COMP METB)on 022 Albumin [Mass/Vol] 3.3 g/dL Critically low 3.4-5.0 [facility] Comment on above: Performed By: #### C MP #### [facility] [address] [place] [address] Dr. Ramses Dumas Albumin/Globulin [Mass ratio] 0.8 {ratio} Normal [facility] Comment on above: Performed By: #### C MP #### [facility] [address] [place] [address] Dr. Ramses Dumas ALP [Catalytic activity/Vol] 108 U/L Normal 46-116 [facility] Comment on above: Performed By: #### C MP #### [facility] [address] [place] [address] Dr. Ramses Dumas ALT [Catalytic activity/Vol] 103 U/L Critically high 14-59 [facility] Comment on above: Performed By: #### C MP #### [facility] [address] [place] [address] Dr. Ramses Dumas Anion gap [Moles/Vol] 6.6 mmol/L Normal [facility] Comment on above: Performed By: #### C MP #### [facility] [address] [place] [address] Dr. Ramses Dumas AST [Catalytic activity/Vol] 21 U/L Normal 15-37 [facility] Comment on above: Performed By: #### C MP #### [facility] [address] [place] [address] Dr. Ramses Dumas Bilirubin [Mass/Vol] 0.2 mg/dL Normal 0.2-1.0 [facility] [facility] Comment on above: Performed By: #### C MP #### [facility] [address] [place] [address] Dr. Ramses Dumas Calcium [Mass/Vol] 9.2 mg/dL Normal 8.5-10.1 [facility] Comment on above: Performed By: #### C MP #### [facility] [address] [place] [address] Dr. Ramses Dumas Chloride [Moles/Vol] 102 mmol/L Normal 98-107 [facility] Comment on above: Performed By: #### C MP #### [facility] [address] [place] [address] Dr. Ramses Dumas CO2 [Moles/Vol] 28.8 mmol/L Normal 21.0-32.0 [facility] Comment on above: Performed By: #### C MP #### [facility] [address] [place] [address] Dr. Ramses Dumas Creatinine [Mass/Vol] 0.92 mg/dL Normal 0.55-1.02 [facility] Comment on above: Performed By: #### C MP #### [facility] [address] [place] [address] Dr. Ramses Dumas EGFR-AF MAURITIAN >60 Normal >=60 [facility] Comment on above: Performed By: #### C MP #### [facility] [address] [place] [address] Dr. Ramses Dumas EGFR-NON AF MAURITIAN >60 Normal >=60 [facility] Comment on above: Performed By: #### C MP #### [facility] [address] [place] [address] Dr. Ramses Dumas Globulin (S) [Mass/Vol] 4.1 g/dL Normal [facility] Comment on above: Performed By: #### C MP #### [facility] [address] [address] [address] Ramses Dumas Glucose [Mass/Vol] 114 mg/dL Critically high 74-106 [facility] Comment on above: Performed By: #### C MP #### [facility] [address] [address] [address] Ramses Dumas Potassium [Moles/Vol] 3.4 mmol/L Critically low 3.5-5.1 [facility] Comment on above: Performed By: #### C MP #### [facility] [address] [place] [address] Dr. Ramses Dumas Protein [Mass/Vol] 7.4 g/dL Normal 6.4-8.2 [facility] Comment on above: Performed By: #### C MP #### [facility] [address] [address] [address] Ramses Dumas Sodium [Moles/Vol] 134 mmol/L Critically low 136-145 [facility] Comment on above: Performed By: #### C MP #### [facility] [address] [place] [address] Dr. Ramses Dumas Urea nitrogen [Mass/Vol] 11.0 mg/dL Normal 7.0-18.0 [facility] Comment on above: Performed By: #### C MP #### [facility] [address] [address] [address] Ramses Dumas Urea nitrogen/Creatinine [Mass ratio] 12.0 mg/mg Normal [facility] Comment on above: Performed By: #### C MP #### [facility] [address] [address] [address] Ramses Dumas URINE MICROSCOPIC ONLYon BACTERIA MODERATE Abnormal NONE SEEN [facility] Comment on above: Performed By: #### U KJ 24 #### [facility] [address] [address] [address] Ramses Dumas Bacteria identified Cx Nom (U) INDICATED Normal [facility] Comment on above: Performed By: #### U KJ 24 #### [facility] [address] [address] [address] Ramses Dumas CAST NONE SEEN Normal NONE SEEN [facility] Comment on above: Performed By: #### U KJ 24 #### [facility] [address] [place] [address] Dr. Ramses Dumas Crystals LM Nom (Urine sed) NONE SEEN Normal NONE SEEN [facility] Comment on above: Performed By: #### U KJ 24 #### [facility] [address] [place] [address] Dr. Ramses Dumas Epithelial cells LM Ql (Urine sed) RARE Normal NONE SEEN /RARE [facility] Comment on above: Performed By: #### U KJ 24 #### [facility] [address] [place] [address] Dr. Ramses Dumas MUCOUS NONE SEEN Normal NONE SEEN [facility] Comment on above: Performed By: #### U KJ 24 #### [facility] [address] [place] [address] Dr. Ramses Dumas RBC 20-50 Abnormal 0-2 [facility] Comment on above: Performed By: #### U KJ 24 #### [facility] [address] [place] [address] Dr. Ramses Dumas WBC 5-10 Abnormal NONE SEEN [facility] Comment on above: Performed By: #### U KJ 24 #### [facility] [address] [place] [address] Dr. Ramses Dumas CULTURE BLOODon 08-25-2022 Microscopic [...] S F Tetracycline >=16 R F Normal [facility] Comment on above: Performed By: #### B LDCX2 #### [facility] [address] [place] [address] Dr. Ramses Dumas Microscopic examination of blood, [...] S F Tetracycline >=16 R F Normal [facility] Comment on above: Performed By: #### C BC #### [facility] [address] [place] [address] Dr. Ramses Dumas CBC AUTO DIFFon 08-24-2022 BASO # 0.0 103/ul Normal 0.0-0.1 [facility] Comment on above: Performed By: #### C BC #### [facility] [address] [place] [address] Dr. Ramses Dumas Basophils/100 WBC (Bld) 0.1 % Critically low 0.2-2.0 [facility] Comment on above: Performed By: #### C BC #### [facility] [address] [place] [address] Dr. Ramses Dumas EO # 0.0 103/ul Normal 0.0-0.7 [facility] Comment on above: Performed By: #### C BC #### [facility] [address] [place] [address] Dr. Ramses Dumas Eosinophils/100 WBC (Bld) 0.0 % Critically low 0.9-7.0 [facility] Comment on above: Performed By: #### C BC #### [facility] [address] [place] [address] Dr. Ramses Dumas Erythrocyte distribution width (RBC) [Ratio] 13.5 % Normal 11.0-15.0 [facility] Comment on above: Performed By: #### C BC #### [facility] [address] [place] [address] Dr. Ramses Dumas Hematocrit (Bld) [Volume fraction] 33.0 % Critically low 36.0-48.0 [facility] Comment on above: Performed By: #### C BC #### [facility] [address] [place] [address] Dr. Ramses Dumas Hemoglobin (Bld) [Mass/Vol] 10.7 g/dL Critically low 12.0-16.0 [facility] Comment on above: Performed By: #### C BC #### [facility] [address] [place] [address] Dr. Ramses Dumas IG # 0.04 10e3/ul Critically high 0.00-0.03 [facility] Comment on above: Performed By: #### C BC #### [facility] [address] [place] [address] Dr. Ramses Dumas IG % 0.4 % Normal 0.0-0.5 [facility] Comment on above: Performed By: #### C BC #### [facility] [address] [place] [address] Dr. Ramses Dumas LYMPH # 0.8 103/ul Critically low 1.2-3.8 [facility] Comment on above: Performed By: #### C BC #### [facility] [address] [place] [address] Dr. Ramses Dumas Lymphocytes/100 WBC (Bld) 7.9 % Critically low 20.5-60.0 [facility] Comment on above: Performed By: #### C BC #### [facility] [address] [place] [address] Dr. Ramses Dumas MANUAL DIFF REQ NO Normal [facility] Comment on above: Performed By: #### C BC #### [facility] [address] [address] [address] Ramses Dumas MCH (RBC) [Entitic mass] 26.5 pg Critically low 26.7-34.0 [facility] Comment on above: Performed By: #### C BC #### [facility] [address] [place] [address] Dr. Ramses Dumas MCHC (RBC) [Mass/Vol] 32.4 g/dL Normal 29.9-35.2 [facility] Comment on above: Performed By: #### C BC #### [facility] [address] [place] [address] Dr. Ramses Dumas MCV (RBC) [Entitic vol] 81.7 fL Normal 81.0-99.0 [facility] Comment on above: Performed By: #### C BC #### [facility] [address] [place] [address] Dr. Ramses Dumas MONO # 0.6 103/ul Normal 0.3-0.8 [facility] Comment on above: Performed By: #### C BC #### [facility] [address] [place] [address] Dr. Ramses Dumas Monocytes/100 WBC (Bld) 6.3 % Normal 1.7-12.0 [facility] Comment on above: Performed By: #### C BC #### [facility] [address] [place] [address] Dr. Ramses Dumas NEUT # 8.6 103/ul Critically high 1.4-6.5 [facility] Comment on above: Performed By: #### C BC #### [facility] [address] [place] [address] Dr. Ramses Dumas Neutrophils/100 WBC (Bld) 85.3 % Critically high 43.0-75.0 [facility] Comment on above: Performed By: #### C BC #### [facility] [address] [place] [address] Dr. Ramses Dumas Platelet mean volume (Bld) [Entitic vol] 9.1 fL Critically low 9.5-13.5 [facility] Comment on above: Performed By: #### C BC #### [facility] [address] [address] [address] Ramses Dumas PLT 248 103/ul Normal 150-450 [facility] Comment on above: Performed By: #### C BC #### [facility] [address] [address] [address] Ramses Dumas RBC 4.04 106/ul Critically low 4.20-5.40 [facility] Comment on above: Performed By: #### C BC #### [facility] [address] [address] [address] Ramses Dumas WBC 10.1 103/ul Normal 4.0-11.0 [facility] Comment on above: Performed By: #### C BC #### [facility] [address] [place] [address] Dr. Ramses Dumas CULTURE URINEon 08-24-2022 CULTURE [...] S F Tetracycline >=16 R F Normal [facility] Comment on above: Performed By: #### U RCX #### [facility] [address] [place] [address] Dr. Ramses Dumas PROF 14(COMP METB)on 022 Albumin [Mass/Vol] 2.4 g/dL Critically low 3.4-5.0 [facility] Comment on above: Performed By: #### C VDTBH #### [facility] [address] [place] [address] Dr. Ramses Dumas Albumin/Globulin [Mass ratio] 0.7 {ratio} Normal [facility] Comment on above: Performed By: #### C VDTB #### [facility] [address] [address] [address] Ramses Dumas ALP [Catalytic activity/Vol] 95 U/L Normal 46-116 [facility] Comment on above: Performed By: #### C VDTBH #### [facility] [address] [address] [address] Ramses Dumas ALT [Catalytic activity/Vol] 327 U/L Critically high 14-59 [facility] Comment on above: Performed By: #### C VDTBH #### [facility] [address] [address] [address] Ramses Dumas Anion gap [Moles/Vol] 8.7 mmol/L Normal [facility] Comment on above: Performed By: #### C VDTBH #### [facility] [address] [address] [address] Ramses Dumas AST [Catalytic activity/Vol] 165 U/L Critically high 15-37 [facility] Comment on above: Performed By: #### C VDTBH #### [facility] [address] [address] [address] Ramses Dumas Bilirubin [Mass/Vol] 0.4 mg/dL Normal 0.2-1.0 [facility] Comment on above: Performed By: #### C VDTBH #### [facility] [address] [address] [address] Ramses Dumas Calcium [Mass/Vol] 8.0 mg/dL Critically low 8.5-10.1 [facility] Comment on above: Performed By: #### C VDTBH #### [facility] [address] [address] [address] Ramses Dumas Chloride [Moles/Vol] 108 mmol/L Critically high 98-107 [facility] Comment on above: Performed By: #### C VDTBH #### [facility] [address] [address] [address] Ramses Dumas CO2 [Moles/Vol] 25.3 mmol/L Normal 21.0-32.0 [facility] Comment on above: Performed By: #### C VDTBH #### [facility] [address] [address] [address] Ramses Dumas Creatinine [Mass/Vol] 0.70 mg/dL Normal 0.55-1.02 [facility] Comment on above: Performed By: #### C VDTBH #### [facility] [address] [address] [address] Ramses Dumas EGFR-AF MAURITIAN >60 Normal >=60 [facility] Comment on above: Performed By: #### C VDTBH #### [facility] [address] [address] [address] Ramses Dumas EGFR-NON AF MAURITIAN >60 Normal >=60 [facility] Comment on above: Performed By: #### C VDTBH #### [facility] [address] [place] [address] Dr. Ramses Dumas Globulin (S) [Mass/Vol] 3.6 g/dL Normal [facility] Comment on above: Performed By: #### C VDTBH #### [facility] [address] [place] [address] Dr. Ramses Dumas Glucose [Mass/Vol] 160 mg/dL Critically high 74-106 [facility] Comment on above: Performed By: #### C VDTBH #### [facility] [address] [place] [address] Dr. Ramses Dumas Potassium [Moles/Vol] 4.0 mmol/L Normal 3.5-5.1 [facility] Comment on above: Performed By: #### C VDTBH #### [facility] [address] [place] [address] Dr. Ramses Dumas Protein [Mass/Vol] 6.0 g/dL Critically low 6.4-8.2 [facility] Comment on above: Performed By: #### C VDTBH #### [facility] [address] [place] [address] Dr. Ramses Dumas Sodium [Moles/Vol] 138 mmol/L Normal 136-145 [facility] Comment on above: Performed By: #### C VDTBH #### [facility] [address] [place] [address] Dr. Ramses Dumas Urea nitrogen [Mass/Vol] 6.0 mg/dL Critically low 7.0-18.0 [facility] Comment on above: Performed By: #### C VDTBH #### [facility] [address] [place] [address] Dr. Ramses Dumas Urea nitrogen/Creatinine [Mass ratio] 8.6 mg/mg Normal [facility] Comment on above: Performed By: #### C VDTBH #### [facility] [address] [place] [address] Dr. Ramses Dumas CBC AUTO DIFFon 08-23-2022 BASO # 0.0 103/ul Normal 0.0-0.1 [facility] Comment on above: Performed By: #### U RCX #### [facility] [address] [place] [address] Dr. Ramses Dumas Basophils/100 WBC (Bld) 0.2 % Normal 0.2-2.0 [facility] Comment on above: Performed By: #### U RCX #### [facility] [address] [place] [address] Dr. Ramses Dumas EO # 0.0 103/ul Normal 0.0-0.7 [facility] Comment on above: Performed By: #### U RCX #### [facility] [address] [place] [address] Dr. Ramses Dumas Eosinophils/100 WBC (Bld) 0.1 % Critically low 0.9-7.0 [facility] Comment on above: Performed By: #### U RCX #### [facility] [address] [place] [address] Dr. Ramses Dumas Erythrocyte distribution width (RBC) [Ratio] 13.4 % Normal 11.0-15.0 [facility] Comment on above: Performed By: #### U RCX #### [facility] [address] [place] [address] Dr. Ramses Dumas Hematocrit (Bld) [Volume fraction] 34.1 % Critically low 36.0-48.0 [facility] Comment on above: Performed By: #### U RCX #### [facility] [address] [address] [address] Ramses Dumas Hemoglobin (Bld) [Mass/Vol] 10.9 g/dL Critically low 12.0-16.0 [facility] Comment on above: Performed By: #### U RCX #### [facility] [address] [address] [address] Ramses Dumas IG # 0.02 10e3/ul Normal 0.00-0.03 [facility] Comment on above: Performed By: #### U RCX #### [facility] [address] [address] [address] Ramses Dumas IG % 0.2 % Normal 0.0-0.5 [facility] Comment on above: Performed By: #### U RCX #### [facility] [address] [place] [address] Dr. Ramses Dumas LYMPH # 0.7 103/ul Critically low 1.2-3.8 [facility] Comment on above: Performed By: #### U RCX #### [facility] [address] [place] [address] Dr. Ramses Dumas Lymphocytes/100 WBC (Bld) 6.9 % Critically low 20.5-60.0 [facility] Comment on above: Performed By: #### U RCX #### [facility] [address] [place] [address] Dr. Ramses Dumas MANUAL DIFF REQ NO Normal [facility] Comment on above: Performed By: #### U RCX #### [facility] [address] [address] [address] Ramses Dumas MCH (RBC) [Entitic mass] 26.1 pg Critically low 26.7-34.0 [facility] Comment on above: Performed By: #### U RCX #### [facility] [address] [place] [address] Dr. Ramses Dumas MCHC (RBC) [Mass/Vol] 32.0 g/dL Normal 29.9-35.2 [facility] Comment on above: Performed By: #### U RCX #### [facility] [address] [address] [address] Ramses Dumas MCV (RBC) [Entitic vol] 81.8 fL Normal 81.0-99.0 [facility] Comment on above: Performed By: #### U RCX #### [facility] [address] [address] [address] Ramses Dumas MONO # 0.6 103/ul Normal 0.3-0.8 [facility] Comment on above: Performed By: #### U RCX #### [facility] [address] [address] [address] Ramses Dumas Monocytes/100 WBC (Bld) 5.9 % Normal 1.7-12.0 [facility] Comment on above: Performed By: #### U RCX #### [facility] [address] [place] [address] Dr. Ramses Dumas NEUT # 8.2 103/ul Critically high 1.4-6.5 [facility] Comment on above: Performed By: #### U RCX #### [facility] [address] [place] [address] Dr. Ramses Dumas Neutrophils/100 WBC (Bld) 86.7 % Critically high 43.0-75.0 [facility] Comment on above: Performed By: #### U RCX #### [facility] [address] [place] [address] Dr. Ramses Dumas Platelet mean volume (Bld) [Entitic vol] 9.4 fL Critically low 9.5-13.5 [facility] Comment on above: Performed By: #### U RCX #### [facility] [address] [address] [address] Ramses Dumas PLT 235 103/ul Normal 150-450 [facility] Comment on above: Performed By: #### U RCX #### [facility] [address] [address] [address] Ramses Dumas RBC 4.17 106/ul Critically low 4.20-5.40 [facility] Comment on above: Performed By: #### U RCX #### [facility] [address] [address] [address] Ramses Dumas WBC 9.5 103/ul Normal 4.0-11.0 [facility] Comment on above: Performed By: #### U RCX #### [facility] [address] [address] [address] Ramses Dumas PROF 14(COMP METB)on 022 Albumin [Mass/Vol] 2.6 g/dL Critically low 3.4-5.0 [facility] Comment on above: Performed By: #### U KJ 24 #### [facility] [address] [place] [address] Dr. Ramses Dumas Albumin/Globulin [Mass ratio] 0.8 {ratio} Normal [facility] Comment on above: Performed By: #### U KJ 24 #### [facility] [address] [place] [address] Dr. Ramses Dumas ALP [Catalytic activity/Vol] 82 U/L Normal 46-116 [facility] Comment on above: Performed By: #### U KJ 24 #### [facility] [address] [address] [address] Ramses Dumas ALT [Catalytic activity/Vol] 257 U/L Critically high 14-59 [facility] Comment on above: Performed By: #### U KJ 24 #### [facility] [address] [place] [address] Dr. Ramses Dumas Anion gap [Moles/Vol] 10.3 mmol/L Normal [facility] Comment on above: Performed By: #### U KJ 24 #### [facility] [address] [place] [address] Dr. Ramses Dumas AST [Catalytic activity/Vol] 196 U/L Critically high 15-37 [facility] Comment on above: Performed By: #### U KJ 24 #### [facility] [address] [place] [address] Dr. Ramses Dumas Bilirubin [Mass/Vol] 0.5 mg/dL Normal 0.2-1.0 [facility] Comment on above: Performed By: #### U KJ 24 #### [facility] [address] [address] [address] Ramses Dumas Calcium [Mass/Vol] 7.8 mg/dL Critically low 8.5-10.1 [facility] Comment on above: Performed By: #### U KJ 24 #### [facility] [address] [address] [address] Ramses Dumas Chloride [Moles/Vol] 104 mmol/L Normal 98-107 [facility] Comment on above: Performed By: #### U KJ 24 #### [facility] [address] [address] [address] Ramses Dumas CO2 [Moles/Vol] 24.4 mmol/L Normal 21.0-32.0 [facility] Comment on above: Performed By: #### U KJ 24 #### [facility] [address] [place] [address] Dr. Ramses Dumas Creatinine [Mass/Vol] 1.09 mg/dL Critically high 0.55-1.02 [facility] Comment on above: Performed By: #### U KJ 24 #### [facility] [address] [address] [address] Ramses Dumas EGFR-AF MAURITIAN >60 Normal >=60 [facility] Comment on above: Performed By: #### U KJ 24 #### [facility] [address] [place] [address] Dr. Ramses Dumas EGFR-NON AF MAURITIAN 59 mL/min/1.73m2 Critically low >=60 [facility] Comment on above: Performed By: #### U KJ 24 #### [facility] [address] [address] [address] Ramses Dumas Globulin (S) [Mass/Vol] 3.3 g/dL Normal [facility] Comment on above: Performed By: #### U KJ 24 #### [facility] [address] [address] [address] Ramses Dumas Glucose [Mass/Vol] 143 mg/dL Critically high 74-106 T [facility] Comment on above: Performed By: #### U KJ 24 #### [facility] [address] [address] [address] Ramses Dumas Potassium [Moles/Vol] 3.7 mmol/L Normal 3.5-5.1 [facility] Comment on above: Performed By: #### U KJ 24 #### [facility] [address] [place] [address] Dr. Ramses Dumas Protein [Mass/Vol] 5.9 g/dL Critically low 6.4-8.2 [facility] Comment on above: Performed By: #### U KJ 24 #### [facility] [address] [place] [address] Dr. Ramses Dumas Sodium [Moles/Vol] 135 mmol/L Critically low 136-145 Th [facility] Comment on above: Performed By: #### U KJ 24 #### [facility] [address] [place] [address] Dr. Ramses Dumas Urea nitrogen [Mass/Vol] 10.0 mg/dL Normal 7.0-18.0 [facility] Comment on above: Performed By: #### U KJ 24 #### [facility] [address] [place] [address] Dr. Ramses Dumas Urea nitrogen/Creatinine [Mass ratio] 9.2 mg/mg Normal [facility] Comment on above: Performed By: #### U KJ 24 #### [facility] [address] [place] [address] Dr. Ramses Dumas BLOOD CULTURE ID PANELon A. baumannii Not detected Normal NOT DETECTED [facility] Comment on above: Performed By: #### C VDTBH #### [facility] [address] [place] [address] Dr. Ramses Dumas Bacteriodes fragilis Not detected Normal NOT DETECTED [facility] Comment on above: Performed By: #### C VDTBH #### [facility] [address] [place] [address] Dr. Ramses Dumas BCID CONTROLS PASSED Normal [facility] Comment on above: Performed By: #### C VDTBH #### [facility] [address] [place] [address] Dr. Ramses Dumas BCIDBTHD BLOOD CULTURE BOTTLE INFORMATION Normal [facility] Comment on above: Performed By: #### C VDTBH #### [facility] [address] [place] [address] Dr. Ramses Dumas BCIDHD1 ANTIMICROBIAL RESISTANCE GENES [facility] Comment on above: Performed By: #### C VDTBH #### [facility] [address] [place] [address] Dr. Ramses Dumas BCIDHD2 SEE BELOW [facility] Comment on above: Result Comment: Note : Antimicrobial resitance can occur via multiple mechanisms. A Not Detected result for the [employer] antomicrobial resistance gene assays does not indicate antimicrobial susceptibility. Subculturing is required for species identification and susceptibility testing of isolates. Performed By: #### C VDTBH #### [facility] [address] [place] [address] Dr. Ramses Dumas BCIDHD3 Positive [facility] Comment on above: Performed By: #### C VDTBH #### [facility] [address] [place] [address] Dr. Ramses Dumas BCIDHD4 Negative [facility] Comment on above: Performed By: #### C VDTBH #### [facility] [address] [place] [address] Dr. Ramses Dumas BCIDHD5 YEAST Normal [facility] Comment on above: Performed By: #### C VDTBH #### [facility] [address] [place] [address] Dr. Ramses Dumas Bottle Set: Set 1 [facility] Comment on above: Performed By: #### C VDTBH #### [facility] [address] [place] [address] Dr. Ramses Dumas Bottle: Pediatric Normal [facility] Comment on above: Performed By: #### C VDTBH #### [facility] [address] [place] [address] Dr. Ramses Vincent. neoformans/gattii Not detected Normal NOT DETECTED [facility] Comment on above: Performed By: #### C VDTBH #### [facility] [address] [place] [address] Dr. Ramses Dumas Kim albicans Not detected Normal NOT DETECTED [facility] Comment on above: Performed By: #### C VDTBH #### [facility] [address] [place] [address] Dr. Ramses Dumas Kim auris Not detected Normal NOT DETECTED [facility] Comment on above: Performed By: #### C VDTBH #### [facility] [address] [place] [address] Dr. Ramses Dumas Kim glabrata Not detected Normal NOT DETECTED [facility] Comment on above: Performed By: #### C VDTBH #### [facility] [address] [place] [address] Dr. Ramses Dumas Kim Krusei Not detected Normal NOT DETECTED The [facility] Comment on above: Performed By: #### C VDTBH #### [facility] [address] [place] [address] Dr. Ramses Dumas Kim Parapsilosis Not detected Normal NOT DETECTED [facility] Comment on above: Performed By: #### C VDTBH #### [facility] [address] [place] [address] Dr. Ramses Dumas Kim Tropicalis Not detected Normal NOT DETECTED [facility] Comment on above: Performed By: #### C VDTBH #### [facility] [address] [place] [address] Dr. Ramses Dumas CTX-M Resistant Gene Not Applicable Normal NOT DETECTE D [facility] Comment on above: Performed By: #### C VDTBH #### [facility] [address] [place] [address] Dr. Ramses Dumas E. Cloacae complex Not detected Normal NOT DETECTED [facility] Comment on above: Performed By: #### C VDTBH #### [facility] [address] [place] [address] Dr. Ramses Dumas E. faecalis Not detected Normal NOT DETECTED The [facility] Comment on above: Performed By: #### C VDTBH #### [facility] [address] [place] [address] Dr. Ramses Dumas E. faecium Not detected Normal NOT DETECTED The [facility] Comment on above: Performed By: #### C VDTBH #### [facility] [address] [place] [address] Dr. Ramses Dumas Enterobacteriaceae Not detected Normal NOT DETECTED [facility] Comment on above: Performed By: #### C VDTBH #### [facility] [address] [place] [address] Dr. Ramses Dumas Escherichia coli Not detected Normal NOT DETECTED [facility] Comment on above: Performed By: #### C VDTBH #### [facility] [address] [place] [address] Dr. Ramses Dumas H. influenzae Not detected Normal NOT DETECTED [facility] Comment on above: Performed By: #### C VDTBH #### [facility] [address] [place] [address] Dr. Ramses Dumas IMP Resistant Gene Not Applicable Normal NOT DETECTED [facility] Comment on above: Performed By: #### C VDTBH #### [facility] [address] [place] [address] Dr. Ramses Dumas K. oxytoca Not detected Normal NOT DETECTED [facility] Comment on above: Performed By: #### C VDTBH #### [facility] [address] [place] [address] Dr. Ramses Dumas K. pneumoniae Not detected Normal NOT DETECTED [facility] Comment on above: Performed By: #### C VDTBH #### [facility] [address] [place] [address] Dr. Ramses uDmas Klebsiella aerogenes Not detected Normal NOT DETECTED [facility] Comment on above: Performed By: #### C VDTBH #### [facility] [address] [place] [address] Dr. Ramses Dumas KPC Resistant Gene Not detected Normal NOT DETECTED [facility] Comment on above: Performed By: #### C VDTBH #### [facility] [address] [place] [address] Dr. Ramses Dumas List. monocytogenes Not detected Normal NOT DETECTED [facility] Comment on above: Performed By: #### C VDTBH #### [facility] [address] [place] [address] Dr. Ramses Dumas Mcr-1 Resistant Gene Not Applicable Normal NOT DETECTE D [facility] Comment on above: Performed By: #### C VDTBH #### [facility] [address] [place] [address] Dr. Ramses Dumas mecA/C Not Applicable Normal NOT DETECTED [facility] Comment on above: Performed By: #### C VDTBH #### [facility] [address] [place] [address] Dr. Ramses Dumas mecA/C MREJ Not Applicable Normal NOT DETECTED [facility] Comment on above: Performed By: #### C VDTBH #### [facility] [address] [place] [address] Dr. Ramses Dumas N. meningitidis Not detected Normal NOT DETECTED The [facility] Comment on above: Performed By: #### C VDTBH #### [facility] [address] [place] [address] Dr. Ramses Dumas NDM Resistant Gene Not Applicable Normal NOT DETECTED [facility] Comment on above: Performed By: #### C VDTBH #### [facility] [address] [place] [address] Dr. Ramses Dumas Oxa-48-like Not Applicable Normal NOT DETECTED [facility] Comment on above: Performed By: #### C VDTBH #### [facility] [address] [place] [address] Dr. Ramses Dumas Proteus Not detected Normal NOT DETECTED [facility] Comment on above: Performed By: #### C VDTBH #### [facility] [address] [place] [address] Dr. Ramses Dumas Pseud. aeruginosa Not detected Normal NOT DETECTED [facility] Comment on above: Performed By: #### C VDTBH #### [facility] [address] [place] [address] Dr. Ramses Dumas S. maltophilia Not detected Normal NOT DETECTED [facility] Comment on above: Performed By: #### C VDTBH #### [facility] [address] [place] [address] Dr. Ramses Dumas Salmonella Not detected Normal NOT DETECTED [facility] Comment on above: Performed By: #### C VDTBH #### [facility] [address] [place] [address] Dr. Ramses Dumas Seratia marcescens Not detected Normal NOT DETECTED [facility] Comment on above: Performed By: #### C VDTBH #### [facility] [address] [place] [address] Dr. Ramses Dumas Site: unknown/not given Normal [facility] Comment on above: Performed By: #### C VDTBH #### [facility] [address] [place] [address] Dr. Ramses Dumas Stapphillip. aureus Not detected Normal NOT DETECTED [facility] Comment on above: Performed By: #### C VDTBH #### [facility] [address] [place] [address] Dr. Ramses Dumas Stapphillip. epidermidis Not detected Normal NOT DETECTED [facility] Comment on above: Performed By: #### C VDTBH #### [facility] [address] [place] [address] Dr. Ramses Dumas Stapphillip. lugdunensis Not detected Normal NOT DETECTED [facility] Comment on above: Performed By: #### C VDTBH #### [facility] [address] [place] [address] Dr. Ramses Dumas Staphylococcus Not detected Normal NOT DETECTED [facility] Comment on above: Performed By: #### C VDTBH #### [facility] [address] [place] [address] Dr. Ramses Dumas Strep. agalactiae Detected Critically abnormal NOT DETECTED [facility] Comment on above: Performed By: #### C VDTBH #### [facility] [address] [place] [address] Dr. Ramses Dumas Strep. pneumoniae Not detected Normal NOT DETECTED [facility] Comment on above: Performed By: #### C VDTBH #### [facility] [address] [place] [address] Dr. Ramses Dumas Strep. pyogenes Not detected Normal NOT DETECTED [facility] Comment on above: Performed By: #### C VDTBH #### [facility] [address] [place] [address] Dr. Ramses Dumas Streptococcus Detected Critically abnormal NOT DETECTED [facility] Comment on above: Performed By: #### C VDTBH #### [facility] [address] [place] [address] Dr. Ramses Dumas Efrain/B Resist. Gene Not detected Normal NOT DETECTED [facility] Comment on above: Performed By: #### C VDTBH #### [facility] [address] [place] [address] Dr. Ramses Dumas VIM Resistant Gene Not Applicable Normal NOT DETECTED [facility] Comment on above: Performed By: #### C VDTBH #### [facility] [address] [place] [address] Dr. Ramses Dumas CBC AUTO DIFFon 08-22-2022 BASO # 0.1 103/ul Normal 0.0-0.1 [facility] Comment on above: Performed By: #### U KJ 24 #### [facility] [address] [place] [address] Dr. Ramses Dumas Basophils/100 WBC (Bld) 0.7 % Normal 0.2-2.0 [facility] Comment on above: Performed By: #### U KJ 24 #### [facility] [address] [place] [address] Dr. Ramses Dumas EO # 0.1 103/ul Normal 0.0-0.7 [facility] Comment on above: Performed By: #### U KJ 24 #### [facility] [address] [place] [address] Dr. Ramses Dumas Eosinophils/100 WBC (Bld) 1.7 % Normal 0.9-7.0 [facility] Comment on above: Performed By: #### U KJ 24 #### [facility] [address] [place] [address] Dr. Ramses Dumas Erythrocyte distribution width (RBC) [Ratio] 13.2 % Normal 11.0-15.0 [facility] Comment on above: Performed By: #### U KJ 24 #### [facility] [address] [place] [address] Dr. Ramses Dumas Hematocrit (Bld) [Volume fraction] 39.8 % Normal 36.0-48.0 [facility] Comment on above: Performed By: #### U KJ 24 #### [facility] [address] [place] [address] Dr. Ramses Dumas Hemoglobin (Bld) [Mass/Vol] 12.9 g/dL Normal 12.0-16.0 [facility] Comment on above: Performed By: #### U KJ 24 #### [facility] [address] [place] [address] Dr. Ramses Dumas IG # 0.02 10e3/ul Normal 0.00-0.03 [facility] Comment on above: Performed By: #### U KJ 24 #### [facility] [address] [place] [address] Dr. Ramses Dumas IG % 0.2 % Normal 0.0-0.5 [facility] Comment on above: Performed By: #### U KJ 24 #### [facility] [address] [place] [address] Dr. Ramses Dumas LYMPH # 3.2 103/ul Normal 1.2-3.8 [facility] Comment on above: Performed By: #### U KJ 24 #### [facility] [address] [place] [address] Dr. Ramses Dumas Lymphocytes/100 WBC (Bld) 40.0 % Normal 20.5-60.0 [facility] Comment on above: Performed By: #### U KJ 24 #### [facility] [address] [place] [address] Dr. Ramses Dumas MANUAL DIFF REQ NO Normal [facility] Comment on above: Performed By: #### U KJ 24 #### [facility] [address] [place] [address] Dr. Ramses Dumas MCH (RBC) [Entitic mass] 26.6 pg Critically low 26.7-34.0 [facility] Comment on above: Performed By: #### U KJ 24 #### [facility] [address] [place] [address] Dr. Ramses Dumas MCHC (RBC) [Mass/Vol] 32.4 g/dL Normal 29.9-35.2 [facility] Comment on above: Performed By: #### U JK 24 #### [facility] [address] [place] [address] Dr. Ramses Dumas MCV (RBC) [Entitic vol] 82.1 fL Normal 81.0-99.0 [facility] Comment on above: Performed By: #### U KJ 24 #### [facility] [address] [place] [address] Dr. Ramses Dumas MONO # 0.6 103/ul Normal 0.3-0.8 [facility] Comment on above: Performed By: #### U KJ 24 #### [facility] [address] [place] [address] Dr. Ramses Dumas Monocytes/100 WBC (Bld) 7.5 % Normal 1.7-12.0 [facility] Comment on above: Performed By: #### U KJ 24 #### [facility] [address] [place] [address] Dr. Ramses Dumas NEUT # 4.0 103/ul Normal 1.4-6.5 [facility] Comment on above: Performed By: #### U KJ 24 #### [facility] [address] [place] [address] Dr. Ramses Dumas Neutrophils/100 WBC (Bld) 49.9 % Normal 43.0-75.0 [facility] Comment on above: Performed By: #### U KJ 24 #### [facility] [address] [place] [address] Dr. Ramses Dumas Platelet mean volume (Bld) [Entitic vol] 9.3 fL Critically low 9.5-13.5 [facility] Comment on above: Performed By: #### U KJ 24 #### [facility] [address] [place] [address] Dr. Ramses Dumas PLT 354 103/ul Normal 150-450 [facility] Comment on above: Performed By: #### U KJ 24 #### [facility] [address] [address] [address] Ramses Dumas RBC 4.85 106/ul Normal 4.20-5.40 [facility] Comment on above: Performed By: #### U KJ 24 #### [facility] [address] [id number] Ramses Dumas WBC 8.1 103/ul Normal 4.0-11.0 [facility] Comment on above: Performed By: #### U KJ 24 #### [facility] [address] [place] [address] ABD/PELVIS WO CONon [...] KESHIA IRIZARRY Date: 2022-08-22 07:04 Normal [facility] Covid-19 PCR (CVDTB)on SARS-CoV-2 (COVID-19) RNA FRANCESCA+probe Ql (Unsp spec) Not detected Normal NOT DETECTED [facility] Comment on above: Result Comment: When [...] for this test is supported by the [employer] of [employer] and Human Service's declaration that [...] used). Performed By: #### C MP #### [facility] [address] [place] [address] Dr. Ramses Dumas ER URINE PROFILEon 2 Bilirubin Ql (U) Negative Normal NEGATIVE [facility] Comment on above: Performed By: #### U RCX #### [facility] [address] [place] [address] Dr. Ramses Dumas Clarity (U) CLEAR Normal CLEAR [facility] Comment on above: Performed By: #### U RCX #### [facility] [address] [place] [address] Dr. Ramses Dumas Color (U) LT. YELLOW Normal YELLOW [facility] Comment on above: Performed By: #### U RCX #### [facility] [address] [place] [address] Dr. Ramses PÉREZD A micrscopic examination will be performed if indicated. Normal [facility] Comment on above: Performed By: #### U RCX #### [facility] [address] [place] [address] Dr. Ramses Dumas Glucose Ql (U) Negative Normal NEGATIVE [facility] Comment on above: Performed By: #### U RCX #### [facility] [address] [place] [address] Dr. Ramses Dumas Hemoglobin Ql (U) SMALL Abnormal NEGATIVE [facility] Comment on above: Performed By: #### U RCX #### [facility] [address] [place] [address] Dr. Ramses Dumas Ketones Ql (U) Negative Normal NEGATIVE [facility] Comment on above: Performed By: #### U RCX #### [facility] [address] [place] [address] Dr. Ramses Dumas LEUKOCYTES SMALL Abnormal NEGATIVE [facility] Comment on above: Performed By: #### U RCX #### [facility] [address] [place] [address] Dr. Ramses Dumas Nitrite Ql (U) Negative Normal NEGATIVE [facility] Comment on above: Performed By: #### U RCX #### [facility] [address] [place] [address] Dr. Ramses Dumas pH (U) 7.0 [pH] Normal 5-9 [facility] Comment on above: Performed By: #### U RCX #### [facility] [address] [place] [address] Dr. Ramses Dumas Protein (U) [Mass/Vol] 30 mg/dL Abnormal NEGAT CHRIS/ TRACE [facility] Comment on above: Performed By: #### U RCX #### [facility] [address] [place] [address] Dr. Ramses Dumas SPEC GRAVITY 1.020 Normal 1.005-<=1.02 5 [facility] Comment on above: Performed By: #### U RCX #### [facility] [address] [place] [address] Dr. Ramses Dumas UR MICRO IND INDICATED Normal [facility] Comment on above: Performed By: #### U RCX #### [facility] [address] [place] [address] Dr. Ramses Dumas Urobilinogen Qn (U) 0.2 {Lucero'U}/dL Normal 0.2 - 1. 0 [facility] Comment on above: Performed By: #### U RCX #### [facility] [address] [address] [address] Ramses Dumas LACTATE/LACTIC ACIDon 2021 Lactate [Moles/Vol] 2.3 mmol/L Critically high 0.4-1.9 [facility] Comment on above: Performed By: #### U RCX #### [facility] [address] [address] [address] Ramses Dumas URon 08-22-2022 , QUAL Negative Normal NEGATIVE [facility] Comment on above: Performed By: #### U RCX #### [facility] [address] [place] [address] Dr. Ramses Dumas PROF 14(COMP METB)on 022 Albumin [Mass/Vol] 3.5 g/dL Normal 3.4-5.0 [facility] Comment on above: Performed By: #### U RCX #### [facility] [address] [address] [address] Ramses Dumas Albumin/Globulin [Mass ratio] 0.9 {ratio} Normal [facility] Comment on above: Performed By: #### U RCX #### [facility] [address] [place] [address] Dr. Ramses Dumas ALP [Catalytic activity/Vol] 92 U/L Normal 46-116 [facility] Comment on above: Performed By: #### U RCX #### [facility] [address] [address] [address] Ramses Dumas ALT [Catalytic activity/Vol] 139 U/L Critically high 14-59 [facility] Comment on above: Performed By: #### U RCX #### [facility] [address] [address] [address] Ramses Dumas Anion gap [Moles/Vol] 10.2 mmol/L Normal [facility] Comment on above: Performed By: #### U RCX #### [facility] [address] [address] [address] Ramses Dumas AST [Catalytic activity/Vol] 112 U/L Critically high 15-37 [facility] Comment on above: Performed By: #### U RCX #### [facility] [address] [address] [address] Ramses Dumas Bilirubin [Mass/Vol] 0.2 mg/dL Normal 0.2-1.0 [facility] Comment on above: Performed By: #### U RCX #### [facility] [address] [address] [address] Ramses Dumas Calcium [Mass/Vol] 8.8 mg/dL Normal 8.5-10.1 [facility] Comment on above: Performed By: #### U RCX #### [facility] [address] [address] [address] Ramses Dumas Chloride [Moles/Vol] 105 mmol/L Normal 98-107 [facility] Comment on above: Performed By: #### U RCX #### [facility] [address] [address] [address] Ramses Dumas CO2 [Moles/Vol] 26.3 mmol/L Normal 21.0-32.0 [facility] Comment on above: Performed By: #### U RCX #### [facility] [address] [address] [address] Ramses Dumas Creatinine [Mass/Vol] 0.95 mg/dL Normal 0.55-1.02 [facility] Comment on above: Performed By: #### U RCX #### [facility] [address] [address] [address] Ramses Dumas EGFR-AF MAURITIAN >60 Normal >=60 [facility] Comment on above: Performed By: #### U RCX #### [facility] [address] [address] [address] Ramses Dumas EGFR-NON AF MAURITIAN >60 Normal >=60 [facility] Comment on above: Performed By: #### U RCX #### [facility] [address] [address] [address] Ramses Dumas Globulin (S) [Mass/Vol] 3.9 g/dL Normal [facility] Comment on above: Performed By: #### U RCX #### [facility] [address] [place] [address] Dr. Ramses Dumas Glucose [Mass/Vol] 137 mg/dL Critically high 74-106 [facility] Comment on above: Performed By: #### U RCX #### [facility] [facility] [address] [place] [address] Dr. Ramses Dumas Potassium [Moles/Vol] 3.5 mmol/L Normal 3.5-5.1 [facility] Comment on above: Performed By: #### U RCX #### [facility] [address] [place] [address] Dr. Ramses Dumas Protein [Mass/Vol] 7.4 g/dL Normal 6.4-8.2 [facility] Comment on above: Performed By: #### U RCX #### [facility] [address] [place] [address] Dr. Ramses Dumas Sodium [Moles/Vol] 138 mmol/L Normal 136-145 [facility] Comment on above: Performed By: #### U RCX #### [facility] [address] [place] [address] Dr. Ramses Dumas Urea nitrogen [Mass/Vol] 11.0 mg/dL Normal 7.0-18.0 [facility] Comment on above: Performed By: #### U RCX #### [facility] [address] [place] [address] Dr. Ramses Dumas Urea nitrogen/Creatinine [Mass ratio] 11.6 mg/mg Normal [facility] Comment on above: Performed By: #### U RCX #### [facility] [address] [place] [address] Dr. Ramses Dumas URINE MICROSCOPIC ONLYon BACTERIA LARGE Abnormal NONE SEEN [facility] Comment on above: Performed By: #### U RCX #### [facility] [address] [place] [address] Dr. Ramses Dumas Bacteria identified Cx Nom (U) CX ALREADY ORDERED Normal [facility] Comment on above: Performed By: #### U RCX #### [facility] [address] [place] [address] Dr. Ramses Dumas CAST NONE SEEN Normal NONE SEEN [facility] Comment on above: Performed By: #### U RCX #### [facility] [address] [place] [address] Dr. Ramses Dumas Crystals LM Nom (Urine sed) NONE SEEN Normal NONE SEEN [facility] Comment on above: Performed By: #### U RCX #### [facility] [address] [place] [address] Dr. Ramses Dumas Epithelial cells LM Ql (Urine sed) MANY Abnormal NONE SEEN /RARE [facility] Comment on above: Performed By: #### U RCX #### [facility] [address] [place] [address] Dr. Ramses Dumas MUCOUS NONE SEEN Normal NONE SEEN [facility] Comment on above: Performed By: #### U RCX #### [facility] [address] [place] [address] Dr. Ramses Dumas RBC 5-10 Abnormal 0-2 [facility] Comment on above: Performed By: #### U RCX #### [facility] [address] [place] [address] Dr. Ramses Dumas WBC 50-75 Abnormal NONE SEEN [facility] Comment on above: Performed By: #### U RCX #### [facility] [address] [place] [address] Dr. Ramses Dumas CULTURE URINEon 08-15-2022 CULTURE [...] F Tetracycline >=16 R F Normal [facility] Comment on above: Performed By: #### U RCX #### [facility] [address] [place] [address] Dr. Ramses Dumas ACETAMINOPHENon 08-13-2022 Acetaminophen [Mass/Vol] ug/mL Critically low 10.0-30.0 [facility] Comment on above: Performed By: #### U RCX #### [facility] [address] [place] [address] Dr. Ramses Dumas CBC AUTO DIFFon 08-13-2022 BASO # 0.1 103/ul Normal 0.0-0.1 [facility] Comment on above: Performed By: #### C VDTBH #### [facility] [address] [place] [address] Dr. Ramses Dumas Basophils/100 WBC (Bld) 0.8 % Normal 0.2-2.0 [facility] Comment on above: Performed By: #### C VDTBH #### [facility] [address] [place] [address] Dr. Ramses Dumas EO # 0.1 103/ul Normal 0.0-0.7 [facility] Comment on above: Performed By: #### C VDTBH #### [facility] [address] [place] [address] Dr. Ramses Dumas Eosinophils/100 WBC (Bld) 1.6 % Normal 0.9-7.0 [facility] Comment on above: Performed By: #### C VDTBH #### [facility] [address] [place] [address] Dr. Ramses Dumas Erythrocyte distribution width (RBC) [Ratio] 13.3 % Normal 11.0-15.0 [facility] Comment on above: Performed By: #### C VDTBH #### [facility] [address] [place] [address] Dr. Ramses Dumas Hematocrit (Bld) [Volume fraction] 40.6 % Normal 36.0-48.0 [facility] Comment on above: Performed By: #### C VDTBH #### [facility] [address] [place] [address] Dr. Ramses Dumas Hemoglobin (Bld) [Mass/Vol] 13.2 g/dL Normal 12.0-16.0 [facility] Comment on above: Performed By: #### C VDTBH #### [facility] [address] [place] [address] Dr. Ramses Dumas IG # 0.01 10e3/ul Normal 0.00-0.03 [facility] Comment on above: Performed By: #### C VDTBH #### [facility] [address] [place] [address] Dr. Ramses Dumas IG % 0.2 % Normal 0.0-0.5 [facility] Comment on above: Performed By: #### C VDTBH #### [facility] [address] [place] [address] Dr. Ramses Dumas LYMPH # 2.4 103/ul Normal 1.2-3.8 [facility] Comment on above: Performed By: #### C VDTBH #### [facility] [address] [place] [address] Dr. Ramses Dumas Lymphocytes/100 WBC (Bld) 37.7 % Normal 20.5-60.0 [facility] Comment on above: Performed By: #### C VDTBH #### [facility] [address] [place] [address] Dr. Ramess Dumas MANUAL DIFF REQ NO Normal [facility] Comment on above: Performed By: #### C VDTBH #### [facility] [address] [place] [address] Dr. Ramses Dumas MCH (RBC) [Entitic mass] 26.7 pg Normal 26.7-34.0 [facility] Comment on above: Performed By: #### C VDTBH #### [facility] [address] [place] [address] Dr. Ramses Dumas MCHC (RBC) [Mass/Vol] 32.5 g/dL Normal 29.9-35.2 [facility] Comment on above: Performed By: #### C VDTBH #### [facility] [address] [place] [address] Dr. Ramses Dumas MCV (RBC) [Entitic vol] 82.0 fL Normal 81.0-99.0 [facility] Comment on above: Performed By: #### C VDTBH #### [facility] [address] [place] [address] Dr. Ramses Dumas MONO # 0.6 103/ul Normal 0.3-0.8 [facility] Comment on above: Performed By: #### C VDTBH #### [facility] [address] [place] [address] Dr. Ramses Dumas Monocytes/100 WBC (Bld) 8.6 % Normal 1.7-12.0 [facility] Comment on above: Performed By: #### C VDTBH #### [facility] [address] [place] [address] Dr. Ramses Dumas NEUT # 3.3 103/ul Normal 1.4-6.5 [facility] Comment on above: Performed By: #### C VDTBH #### [facility] [address] [place] [address] Dr. Ramses Dumas Neutrophils/100 WBC (Bld) 51.1 % Normal 43.0-75.0 [facility] Comment on above: Performed By: #### C VDTBH #### [facility] [address] [place] [address] Dr. Ramses Dumas Platelet mean volume (Bld) [Entitic vol] 8.7 fL Critically low 9.5-13.5 [facility] Comment on above: Performed By: #### C VDTBH #### [facility] [address] [place] [address] Dr. Ramses Dumas PLT 409 103/ul Normal 150-450 [facility] Comment on above: Performed By: #### C VDTBH #### [facility] [address] [place] [address] Dr. Ramses Dumas RBC 4.95 106/ul Normal 4.20-5.40 [facility] Comment on above: Performed By: #### C VDTBH #### [facility] [address] [place] [address] Dr. Ramses Dumas WBC 6.4 103/ul Normal 4.0-11.0 [facility] Comment on above: Performed By: #### C VDTBH #### [facility] [address] [place] [address] Dr. Ramses Dumas Covid-19 PCR ([facility])on 07-20 SARS-CoV-2 (COVID-19) RNA FRANCESCA+probe Ql (Unsp spec) Not detected Normal NOT DETECTED [facility] Comment on above: Result Comment: When [...] for this test is supported by the Teleprinter Installer of Health and Human Service's declaration that [...] used). Performed By: #### C VDTBH #### [facility] [address] [place] [address] Dr. Ramses Dumas DRUG SCREEN RAPID (URINE)on 08-13-2022 AMP Negative Normal NEGATIVE [facility] Comment on above: Performed By: #### C BC #### [facility] [address] [place] [address] Dr. Ramses Dumas BAR Negative Normal NEGATIVE [facility] Comment on above: Performed By: #### C BC #### [facility] [address] [place] [address] Dr. Ramses Dumas BUP Negative Normal NEGATIVE [facility] Comment on above: Performed By: #### C BC #### [facility] [address] [place] [address] Dr. Ramses Dumas BZO Negative Normal NEGATIVE [facility] Comment on above: Performed By: #### C BC #### [facility] [address] [place] [address] Dr. Ramses Dumas ODILIA Negative Normal NEGATIVE [facility] Comment on above: Performed By: #### C BC #### [facility] [address] [place] [address] Dr. Ramses Dumas CUT-OFFS SEE BELOW Normal [facility] Comment on above: Result Comment: AMP [...] ng/mL Performed By: #### C BC #### [facility] [address] [place] [address] Dr. Ramses Dumas DRUG CUT HEADER DRUG CLASS TEST SYSTEM CUT-OFF CONCENTRATIONS ARE FOLLOWS: Normal [facility] Comment on above: Performed By: #### C BC #### [facility] [address] [place] [address] Dr. Ramses Dumas mAMP Negative Normal NEGATIVE [facility] Comment on above: Performed By: #### C BC #### [facility] [address] [place] [address] Dr. Ramses Dumas MTD Negative Normal NEGATIVE [facility] Comment on above: Performed By: #### C BC #### [facility] [address] [place] [address] Dr. Ramses Dumas OPI Negative Normal NEGATIVE [facility] Comment on above: Performed By: #### C BC #### [facility] [address] [place] [address] Dr. Ramses Dumas OXY Negative Normal NEGATIVE [facility] Comment on above: Performed By: #### C BC #### [facility] [address] [place] [address] Dr. Ramses Dumas PCP Negative Normal NEGATIVE [facility] Comment on above: Performed By: #### C BC #### [facility] [address] [place] [address] Dr. Ramses Dumas PPX Negative Normal NEGATIVE [facility] Comment on above: Performed By: #### C BC #### [facility] [address] [place] [address] Dr. Ramses Dumas TCA Negative Normal NEGATIVE [facility] Comment on above: Performed By: #### C BC #### [facility] [address] [place] [address] Dr. Ramses Dumas THC Negative Normal NEGATIVE [facility] Comment on above: Performed By: #### C BC #### [facility] [address] [place] [address] Dr. Ramses Dumas ER URINE PROFILEon 2 Bilirubin Ql (U) Negative Normal NEGATIVE [facility] Comment on above: Performed By: #### C BC #### [facility] [address] [place] [address] Dr. Ramses Dumas Clarity (U) CLEAR Normal CLEAR [facility] Comment on above: Performed By: #### C BC #### [facility] [address] [place] [address] Dr. Ramses Dumas Color (U) LT. YELLOW Normal YELLOW [facility] Comment on above: Performed By: #### C BC #### [facility] [address] [place] [address] Dr. Ramses Dumas ERUAHD A micrscopic examination will be performed if indicated. Normal [facility] Comment on above: Performed By: #### C BC #### [facility] [address] [place] [address] Dr. Ramses Dumas Glucose Ql (U) Negative Normal NEGATIVE [facility] Comment on above: Performed By: #### C BC #### [facility] [address] [place] [address] Dr. Ramses Dumas Hemoglobin Ql (U) LARGE Abnormal NEGATIVE [facility] Comment on above: Performed By: #### C BC #### [facility] [address] [place] [address] Dr. Ramses Dumas Ketones Ql (U) Negative Normal NEGATIVE [facility] Comment on above: Performed By: #### C BC #### [facility] [address] [place] [address] Dr. Ramses Dumas LEUKOCYTES LARGE Abnormal NEGATIVE [facility] Comment on above: Performed By: #### C BC #### [facility] [address] [place] [address] Dr. Ramses Dumas Nitrite Ql (U) Positive Abnormal NEGATIVE [facility] Comment on above: Performed By: #### C BC #### [facility] [address] [place] [address] Dr. Ramses Dumas pH (U) 6.0 [pH] Normal 5-9 [facility] Comment on above: Performed By: #### C BC #### [facility] [address] [place] [address] Dr. Ramses Dumas Protein (U) [Mass/Vol] 30 mg/dL Abnormal NEGAT CHRIS/ TRACE [facility] Comment on above: Performed By: #### C BC #### [facility] [address] [place] [address] Dr. Ramses Dumas SPEC GRAVITY >=1.030 Abnormal 1.005-<=1.02 5 [facility] Comment on above: Performed By: #### C BC #### [facility] [address] [place] [address] Dr. Ramses Dumas UR MICRO IND INDICATED Normal [facility] Comment on above: Performed By: #### C BC #### [facility] [address] [place] [address] Dr. Ramses Dumas Urobilinogen Qn (U) 0.2 {Lucero'U}/dL Normal 0.2 - 1. 0 [facility] Comment on above: Performed By: #### C BC #### [facility] [address] [place] [address] Dr. Ramses Dumas ETHANOL (BLD ALC)on 08-13-20 22 ALC NOTE NOTE: 80 mg/dl is th e legal limit for a blood alcohol level Normal [facility] Comment on above: Performed By: #### B LDCX2 #### [facility] [address] [address] [address] Ramses Dumas Ethanol [Mass/Vol] mg/dL Normal [facility] Comment on above: Performed By: #### B LDCX2 #### [facility] [address] [address] [address] Ramses Dumas URon 08-13-2022 , QUAL Negative Normal NEGATIVE [facility] Comment on above: Performed By: #### C BC #### [facility] [address] [address] [address] Ramses Dumas PROF 14(COMP METB)on 022 Albumin [Mass/Vol] 3.8 g/dL Normal 3.4-5.0 [facility] Comment on above: Performed By: #### U RCX #### [facility] [address] [address] [address] Ramses Dumas Albumin/Globulin [Mass ratio] 0.9 {ratio} Normal [facility] Comment on above: Performed By: #### U RCX #### [facility] [address] [address] [address] Ramses Dumas ALP [Catalytic activity/Vol] 82 U/L Normal 46-116 [facility] Comment on above: Performed By: #### U RCX #### [facility] [address] [address] [address] Ramses Dumas ALT [Catalytic activity/Vol] 41 U/L Normal 14-59 [facility] Comment on above: Performed By: #### U RCX #### [facility] [address] [address] [address] Ramses Dumas Anion gap [Moles/Vol] 9.3 mmol/L Normal [facility] Comment on above: Performed By: #### U RCX #### [facility] [address] [address] [address] Ramses Dumas AST [Catalytic activity/Vol] 21 U/L Normal 15-37 [facility] Comment on above: Performed By: #### U RCX #### [facility] [address] [place] [address] Dr. Ramses Dumas Bilirubin [Mass/Vol] 0.3 mg/dL Normal 0.2-1.0 [facility] Comment on above: Performed By: #### U RCX #### [facility] [address] [place] [address] Dr. Ramses Dumas Calcium [Mass/Vol] 8.9 mg/dL Normal 8.5-10.1 [facility] Comment on above: Performed By: #### U RCX #### [facility] [address] [place] [address] Dr. Ramses Dumas Chloride [Moles/Vol] 105 mmol/L Normal 98-107 [facility] Comment on above: Performed By: #### U RCX #### [facility] [address] [place] [address] Dr. Ramses Dumas CO2 [Moles/Vol] 28.5 mmol/L Normal 21.0-32.0 [facility] Comment on above: Performed By: #### U RCX #### [facility] [address] [place] [address] Dr. Ramses uDmas Creatinine [Mass/Vol] 0.81 mg/dL Normal 0.55-1.02 [facility] Comment on above: Performed By: #### U RCX #### [facility] [address] [place] [address] Dr. Ramses Dumas EGFR-AF MAURITIAN >60 Normal >=60 [facility] Comment on above: Performed By: #### U RCX #### [facility] [address] [place] [address] Dr. Ramses Dumas EGFR-NON AF MAURITIAN >60 Normal >=60 [facility] Comment on above: Performed By: #### U RCX #### [facility] [address] [place] [address] Dr. Ramses Dumas Globulin (S) [Mass/Vol] 4.1 g/dL Normal [facility] Comment on above: Performed By: #### U RCX #### [facility] [address] [place] [address] Dr. Ramses Dumas Glucose [Mass/Vol] 100 mg/dL Normal 74-106 [facility] Comment on above: Performed By: #### U RCX #### [facility] [address] [place] [address] Dr. Ramses Dumas Potassium [Moles/Vol] 3.8 mmol/L Normal 3.5-5.1 [facility] Comment on above: Performed By: #### U RCX #### [facility] [address] [place] [address] Dr. Ramses Dumas Protein [Mass/Vol] 7.9 g/dL Normal 6.4-8.2 [facility] Comment on above: Performed By: #### U RCX #### [facility] [address] [place] [address] Dr. Ramses Dumas Sodium [Moles/Vol] 139 mmol/L Normal 136-145 [facility] Comment on above: Performed By: #### U RCX #### [facility] [address] [place] [address] Dr. Ramses Dumas Urea nitrogen [Mass/Vol] 10.0 mg/dL Normal 7.0-18.0 [facility] Comment on above: Performed By: #### U RCX #### [facility] [address] [place] [address] Dr. Ramses Dumas Urea nitrogen/Creatinine [Mass ratio] 12.3 mg/mg Normal [facility] Comment on above: Performed By: #### U RCX #### [facility] [address] [place] [address] Dr. Ramses Dumas SALICYLATEon 08-13-2022 SALICYLATE <2.8 Normal <=19.9 [facility] Comment on above: Performed By: #### U RCX #### [facility] [address] [place] [address] Dr. Ramses Dumas URINE MICROSCOPIC ONLYon BACTERIA LARGE Abnormal NONE SEEN [facility] Comment on above: Performed By: #### C BC #### [facility] [address] [place] [address] Dr. Ramses Dumas Bacteria identified Cx Nom (U) INDICATED Normal [facility] Comment on above: Performed By: #### C BC #### [facility] [address] [place] [address] Dr. Ramses Dumas CA OX CRYSTALS RARE Normal [facility] Comment on above: Performed By: #### C BC #### [facility] [address] [place] [address] Dr. Ramses Dumas CAST NONE SEEN Normal NONE SEEN [facility] Comment on above: Performed By: #### C BC #### [facility] [address] [place] [address] Dr. Ramses Dumas Crystals LM Nom (Urine sed) SEEN Abnormal NONE SEEN [facility] Comment on above: Performed By: #### C BC #### [facility] [address] [place] [address] Dr. Ramses Dumas Epithelial cells LM Ql (Urine sed) MODERATE Abnormal NONE SEEN /RARE [facility] Comment on above: Performed By: #### C BC #### [facility] [address] [place] [address] Dr. Ramses Dumas MUCOUS NONE SEEN Normal NONE SEEN [facility] Comment on above: Performed By: #### C BC #### [facility] [address] [place] [address] Dr. Ramses Dumas RBC 10-20 Abnormal 0-2 [facility] Comment on above: Performed By: #### C BC #### [facility] [address] [place], [place] [id number] Dr. Ramses Dumas WBC 20-50 Abnormal NONE SEEN [facility] Comment on above: Performed By: #### C BC #### [facility] [address] [place] [address] Dr. Ramses Dumas Pap IG,rfx Aptima HPV all pt hon 08-09-2022 . . Normal [facility] Comment on above: Performed By: #### C MP #### [facility] [address] [address] [address] Ramses Dumas DIAGNOSIS: Comment Abnormal [facility] Comment on above: Result Comment: EPIT HELIAL CELL ABNORMALITY. LOW GRADE SQUAMOUS INTRAEPITHELIAL LESION (LSIL). Performed By: #### C MP #### [facility] [address] [place] [address] Dr. Ramses Dumas Electronically signed by: Comment Normal [facility] Comment on above: Result Comment: Arnaud Joseph MD, Pathologist Performed By: #### C MP #### [facility] [address] [place] [address] Dr. Ramses Dumas HPV Aptima Negative Normal Negative [facility] Comment on above: Result Comment: This nucleic acid amplification test detects fourteen high-risk HPV types (16,18,31,33,35,39,45,51,52,56,58,59,66,68) without differentiation. Performed By: #### C MP #### [facility] [address] [place] [address] Dr. Ramses Dumas Methodology: Comment Normal [facility] Comment on above: Result Comment: This liquid based ThinPrep(R) pap test was screened with the use of an image guided system. Performed By: #### C MP #### [facility] [address] [place] [address] Dr. Ramses Dumas Note: Comment Normal [facility] Comment on above: Result Comment: The Pap smear is a screening test designed to aid in the detection of premalignant and malignant conditions of the uterine cervix. It is not a diagnostic procedure and should not be used as the sole means of detecting cervical cancer. Both false-positive and false-negative reports do occur. . Performed By: #### C MP #### [facility] [address] [place] [address] Dr. Ramses Dumas Pathologist Provided ICD10 Comment Normal [facility] Comment on above: Result Comment: R87. [id number] Performed By: #### C MP #### [facility] [address] [place] [address] Dr. Ramses Dumas Performed by: Comment Normal [facility] Comment on above: Result Comment: Gail Ruano, Appellate Law Clerk (ASCP) Performed By: #### C MP #### [facility] [address] [address] [address] Ramses Dumas Reflex Criteria: Comment [facility] Comment on above: Result Comment: See below for HPV testing results. . Performed By: #### C MP #### [facility] [id number] Ramses Dumas Specimen adequacy: Comment Normal [facility] Comment on above: Result Comment: Sati sfactory for evaluation. Endocervical and/or squamous metaplastic cells (endocervical component) are present. Performed By: #### C MP #### [facility] [address] [address] [address] Ramses Dumas Vital Signs Date Time Vital Sign Value Performing Clinician Faci litalonso 03-20-2023 10:30-0400 Blood Pressure Location Caesar VILLA [facility] 03-20-2023 10:30-0400 Diastolic blood pressure 73 mm[Hg] Caesar VILLA [facility] 03-20-2023 10:30-0400 Heart rate 80 /min Caesar VILLA [facility] 03-20-2023 10:30-0400 Respiratory rate 16 /min Caesar VILLA [facility] 03-20-2023 10:30-0400 Systolic blood pressure 128 mm[Hg] Caesar VILLA [facility] Encounters Encounter Date Encounter Type Care Provider Facility Start: 12-29-2023 End: 12-29-2023 ambulatory Domingo Das Facility:[facility] Start: 12-17-2023 End: 12-17-2023 ambulatory CELIO VAN Not Available Start: 12-04-2023 End: 12-05-2023 ambulatory Caesar VILLA Facility:[facility] [place] Start: 12-04-2023 End: 12-04-2023 Patient encounter procedure Caesar Turner IDALMIS [facility] Start: 04-09-2023 End: 04-10-2023 ambulatory Caesar R IDALMIS Facility:[id number] Start: 03-20-2023 End: 03-21-2023 ambulatory Caesar Yue IDALMIS Facility:[facility] Start: 03-20-2023 End: 03-20-2023 Patient encounter procedure Caesar R IDALMIS [facility] Start: 02-16-2023 End: 02-16-[address] DOMINGO DAS . Facility:[facility] Start: 02-02-2023 End: 02-02-[address] DOMINGO DAS . Facility:[facility] Start: 12-26-2022 End: 12-27-2022 ambulatory Caesar VILLA Facility:[facility] Start: 12-26-2022 End: 12-26-2022 Patient encounter procedure Caesar Turner IDALMIS [facility] Start: 12-16-2022 End: 12-17-[address] CAESAR VILLA . Facility:[facility] Start: 12-15-2022 End: 12-16-[address] CAESAR VILLA . Facility:[facility] Start: 11-27-[address] DOMINGO DAS . Facili ty:[facility] Start: 11-07-2022 End: 11-07-[address] DOMINGO DAS . Facility:[facility] Start: 11-04-2022 Encounter for preprocedural cardiovascular examination DR TOMASZ GIBBS . [facility] Start: 11-04-2022 Encounter for preprocedural laboratory examination DR TOMASZ GIBBS . [facility] Start: 11-03-2022 End: 11-04-2022 Encounter for preprocedural cardiovascular examination DR DOMINGO DAS . Facility:[facility] Start: 11-03-2022 End: 11-04-[address] DOMINGO DAS . Facility:[facility] Start: 09-20-2022 Encounter for preprocedural laboratory examination DR CAESAR VILAL . [facility] Start: 09-18-2022 End: 09-18-[address] CAESAR VILLA . Facility:[facility] Start: 09-16-2022 End: 09-17-[address] CAESAR VILLA . Facility:[facility] Start: 09-16-2022 End: 09-17-2022 Encounter for preprocedural laboratory examination DR CAESAR VILLA . Facility:[facility] Start: 09-05-2022 End: 09-05-2022 ambulatory ORA BOND . Facility:[facility] Start: 09-04-2022 End: 09-04-2022 ambulatory DANIEL SANTIAGO Facility:[facility] Start: 09-04-2022 End: 09-04-2022 ambulatory Daniel Santiago APRN.WHEEL FITTER Work Phone: Urology Comment on above: NO SHOW (Primary Dx) Start: 09-04-2022 End: 09-04-2022 Telemedicine consultation with patient Daniel M Ulises SWITCHBOARD INSTALLER.WHEEL FITTER Work Phone: [facility] Start: 08-28-2022 End: 08-29-[address] ERWIN MOORE Facility:[facility] Start: 08-22-2022 End: 08-24-[address] DOMINGO DAS . Facility:[facility] Start: 08-13-2022 End: 08-13-2022 ambulatory ORA BOND . Facility:[facility] Start: 07-31-2022 Encounter for cervic al smear to confirm findings of recent normal smear following initial abnormal smear DR TOMASZ GIBBS . [facility] Start: 07-30-2022 End: 07-30-[address] DOMINGO DAS . Facility:[facility] Start: 07-30-2022 End: 07-30-2022 Encounter for cervical smear to confirm findings of recent normal smear following initial abnormal smear DR DOMINGO DAS . Facility:[facility] Start: 07-02-2022 End: 07-03-[address] DOMINGO DAS . Facility:[facility] Procedures Date Procedure Procedure Detail Performing Clinician Start: 09-19-2022 Cystoscopic laser li thotripsy of ureteric calculus Caesar VLILA Start: 08-22-2022 Cystoscopic insertio n of ureteric stent Ceasar VILLA Start: 04-05-2020 Ureteroscopy Caesar LEE Start: 03-01-2020 Ureteroscopy Caesar LEE Comment on above: left Start: 02-27-2020 Cystoscopic insertio n of ureteric stent Caesar VILLA Start: 12-19-2019 Cystourethroscopy wi th dilation of urethral stricture Caesar VILLA Start: 05-30-2012 Cholecystectomy Caesar VILLA Plan of Treatment Date Care Activity Detail Author Start: 06-19-2022 Influenza vaccination INFLUENZA (#1) [facility] Start: 10-19-2021 DEPRESSION ASSESSMENT DEPRESSION ASS ESSMENT [facility] Start: 2021 HPV TESTING HPV TESTING [facility] Start: 2012 PAP TESTING PAP TESTING [facility] Start: 2010 Urine microalbumin profile DTAP,TDAP ,TD (1 - Tdap) [facility] Start: 2009 HEPATITIS C SCREENING HEPATITIS C SC SAROJ [facility] Start: 2009 HIV SCREENING HIV SCREENING [facility] Start: 03-14-1992 COVID-19 VACCINE (#1) COVID-19 VACCI NE (#1) [facility] Start: 1991 HEPATITIS B (1 of 3 - 3-dose series) HEPATITIS B (1 of 3 - 3-dose series) [facility] Immunizations Immunization Date Immunization Notes Care Provider Beata moore 08-01-2019 influenza virus vaccine, unspecified formulation Caesardinesh VILLA [facility] 08-09-2018 tetanus toxoid, redu franco diphtheria toxoid, and acellular pertussis vaccine, adsorbed Caesar IDALMIS [facility] 08-08-2018 influenza virus vaccine, unspecified formulation Caesar VILLA [facility] 06-19-2004 hepatitis B vaccine, pediatric or pediatric/adolescent dosage Caesar VILLA [facility] 03-27-2004 hepatitis B vaccine, pediatric or pediatric/adolescent dosage Caesar VILLA [facility] 12-18-2003 hepatitis B vaccine, pediatric or pediatric/adolescent dosage Caesar VILLA [facility] 12-18-2003 measles, mumps and rubella virus vaccine Caesar VILLA [facility] 04-10-1993 DTaP, unspecified formulation CaesarEnerpulse [facility] 04-10-1993 poliovirus vaccine, unspecified formulation Caesar VILLA [facility] 12-28-1992 Hib, unspecified formulation Caesar VILLA [facility] 12-28-1992 measles, mumps and rubella virus vaccine Caesar VILLA [facility] 03-26-1992 Hib, unspecified formulation Caesar VILLA [facility] 01-18-1992 Hib, unspecified formulation Caesar VILLA [facility] 1991 Hib, unspecified formulation Caesar VILLA [facility] Payers Date Payer Category Payer Self-pay 2021 Medicaid [place] MEDICA[employer] TERM 09/17 [facility] MEDICAID [id number] 2021-Present [phone] [address] [place] [address] Medicaid [id number] 1991 Unknown [id number] 2.16.840.1.859277.3.579.2.593 1991 Unknown [id number] 2.16.840.1.012931.3.579.2.593 1991 Unknown [id number] 2.16.840.1.814802.3.579.2.593 1991 Unknown [id number] 2.16.840.1.565626.3.579.2.593 1991 Unknown [id number] 2.16.840.1.415502.3.579.2.593 1991 Unknown [id number] 2.16.840.1.743241.3.579.2.593 1991 Unknown [id number] 2.16.840.1.638154.3.579.2.593 1991 Unknown [id number] 2.16.840.1.836031.3.579.2.593 1991 Unknown [id number] 2.16.840.1.428685.3.579.2.593 1991 Unknown [id number] 2.16.840.1.645912.3.579.2.593 1991 Unknown [id number] 2.16.840.1.656467.3.579.2.593 1991 Unknown [id number] 2.16.840.1.003000.3.579.2.593 1991 Unknown [id number] 2.16.840.1.023230.3.579.2.593 1991 Unknown [id number] 2.16.840.1.932477.3.579.2.593 1991 Unknown [id number] 2.16.840.1.442349.3.579.2.593 1991 Unknown [id number] 2.16.840.1.479114.3.579.2.593 1991 Unknown [id number] 2.16.840.1.724450.3.579.2.727 1991 Unknown [id number] 2.16.840.1.890485.3.579.2.727 1991 Unknown [id number] 2.16.840.1.644921.3.579.2.727 1991 Unknown [id number] 2.16.840.1.022646.3.579.2.727 1991 Unknown [id number] 2.16.840.1.543653.3.579.2.1259 1958 Medicaid [id number] 1958 Self-pay [id number] 1958 Unknown [id number] Unknown [id number] 2.16.840.1.949241.3.579.2.531 Social History Date Type Detail Facility Tobacco smoking status [facility] Tobacco smoking consumption unknown [facility] Start: 1991 Sex Assigned At Not on file [facility] Start: 08-20-2021 End: 03-20-2023 Tobacco smoking status Never smoked tobacco (finding) [facility] Tobacco smoking status Never [facility] Sex Assigned At Female [facility] Functional Status Date Assessment Result Facility 03-20-2023 Functional Status N/A [facility] Clinical Notes 07-03-2022 to 03-20-2023 Daniel Santiago APRN.WHEEL FITTER - 09/04/2022 7:40 AM EST Note Date & Type Note Facility 03-20-2023 Hospital Discharge instructions Follow Up Care 03/20/2023 11:51:58 With:IDALMIS BORDEN, Caesar Turner, URL Address: [address] [place] [address]- When: Unknown [facility] [place] 03-20-2023 Hospital Discharge instructions Patient Education [...] include: ?8 oz (237 mL) of milk, cmsbvfi-arqfsfxsmwqu-tcpjw milk, and calcium-fortifiedfruit juice. Calcium-fortified means that [...] ?Spinach (cooked), rhubarb, beets, sweet potatoes, and Armenian chard. ?Peanuts. ?Potato chips, israeli fries, and baked potatoes with skin on. ?Nuts and nut products. ?Chocolate. If you regularly take a diuretic medicine, make sure to eat at least 1 or 2 servings of fruits or vegetables that are high in potassium each day. These include: ?Avocado. ?Banana. ?Bearden, prune, carrot, or tomato juice. ?Baked potato. [...] magnesium, fish oil, or vitamin B6. Take ousu-gts-ccatxah and prescription medicines only as told by [...] Casseroles. Pizza. Lasagna. Frozen meals. Potato chips. Fijian fries. The items listed above may not [...] provider. Document Revised: 06/16/2022 Document Reviewed: 06/16/2022 [place] Patient Education 2022 [employer]. Follow Up Care 12/26/2022 08:46:46 With:IDALMIS BORDEN, Caesar Turner, URL Address: [facility] [address], [place] [address]- When: Unknown [facility] 11-07-2022 Note OPERATIVE NOTE OPERATION DATE: 11/07/2022 PROCEDURE: Mery endometrial ablation with LEEP. PREOPERATIVE DIAGNOSIS: Cervical dysplasia, menorrhagia. POSTOPERATIVE DIAGNOSIS: Cervical dysplasia, menorrhagia. ANESTHESIA: General. SURGEON: Tomasz Gibbs D.O. HAUL TRUCK DRIVER: None. BLOOD LOSS: 50 mL. URINE OUTPUT: [...] to Recovery Room in stable condition. [facility] 09-25-2022 Hospital Discharge instructions Follow Up Care 09/25/2022 13:54:04 With:IDALMIS BORDEN, Caesar Turner, ALDOL Address: [address] [place] [address]- When: Unknown [facility] 09-18-2022 Note OPERATIVE NOTE OPERATION DATE: [...] usual fashion. I started by passing a 22-Fijian Olympus cystoscope per urethra and into the [...] removed. She was then transferred to a gurstillmore and wheeled to PACU in stable condition. [facility] 09-04-2022 Note HNO ID: [id number] Author: Daniel Santiago APRN.WHEEL FITTER Service: ? Author Type: Nurse Practitioner Type: [...] for this appointment. documented in this encounter [facility] 07-03-2022 Note PROCEDURE: XR ANKLE LT MIN 3 V COMPARISON: None. HISTORY: Sprain of calcaneofibular ligament FINDINGS: BONES:No fracture, acute abnormality, or significant arthropathy. SOFT TISSUES:Extensive lateral soft tissue swelling EFFUSION:None visible. OTHER: Negative. IMPRESSION: Lateral soft tissue swelling. No acute fracture Electronically authenticated by: GLEN GRAFF Date: 2022-07-03 07:09 [facility] Evaluation + Plan note Future Appointments Appointment Date:03/20/2023 10:15:00 AM Scheduled Provider:Caesar VILLA MD Location:[facility] Appointment Type:URO Office Visit [facility] Evaluation + Plan note Future Appointments Appointment Date:12/04/2023 09:45:00 AM Scheduled Provider:Caesar VILLA MD Location:[facility] Appointment Type:URO Office Visit Diagnostic Tests PendingElectrolyte Panel 03/20/23 [facility] Evaluation note Diagnosis NO SHOW- Primary [facility] N[facility]ative No data available for this section [facility] progress note No data available for this section [facility] Summary Purpose Family History No Family History Records FoundNo Family History Records Found No data available for this section No Family History Records FoundNo Family History Records FoundNo Family History Records Found Advance Directives No Advanced Directives Records FoundNo Advanced Directives Records FoundNo Advanced Directives Records FoundNo Advanced Directives Records FoundNo Advanced Directives Records Found Additional Source Comments Source Comments (unrecognize d section and content) In the event this informatio n is protected by the Federal Confidentiality of Alcohol and Drug Abuse Patient Records regulations: The Federal rules restrict any use of the information to criminally investigate or prosecute any alcohol or drug abuse patient.[facility] Reason for Visit (unrecogniz ed section and content) Reason Onset Date Comments No Show 09/04/2022 No show Care Teams (unrecognized 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 and content) 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[employer] Relationship Specialty Start Date End Date Domingo Das MD [address] [place] [address] Referring Family Medicine 09/01/22 INFORMATION SOURCE (unrecogn ized section and content) DATE CREATED AUTHOR 09/06/2022 [facility] DATE CREATED AUTHOR AUTHOR'S ORGANIZ ATION 02/19/2023 [facility] DATE CREATED AUTHOR AUTHOR'S ORGANIZ ATION 12/06/2023 [facility] DATE CREATED AUTHOR AUTHOR'S ORGANIZ ATION 12/19/2023 [facility] DATE CREATED AUTHOR AUTHOR'S ORGANIZ ATION 12/30/2023 [facility] FOR RECORDS PERTAINING TO PATIENTS WHO ARE [...] BE BASED ON THE PRIMARY CLINICAL RECORDS. [facility], [facility]. provides no warranty or guarantee of the accuracy or completeness of information in this document.
--- NOTE | 2024-02-20 10:52 | CT_ITS ---
[address] [address] Patient Name: CORI BARRIGA MRN: [id number] date: 1990 Sex: F Assigned Patient Location: ER Current Patient Location: ER Accession/Order Number: [id number] Exam Date: 02/20/2024 11:27 Report Date: 02/20/2024 12:11 At the request of: DEV LEIGH Procedure: CT abdomen pelvis wo con EXAM: CT abdomen pelvis wo con HISTORY: Left flank pain COMPARISON: 11/23/2023 TECHNIQUE: Dose reduction techniques were achieved by using automated exposure control and/or adjustment of mA and/or kV according to patient size and/or use of iterative reconstruction technique. Noncontrast CT of the abdomen/pelvis. FINDINGS: Mild posterior dependent atelectasis of the lower lobes. Heart size is normal. Liver is normal. Cholecystectomy. Spleen is normal. Distal esophagus, stomach and duodenum are normal. Adrenal glands are normal. Mild atrophy of the left kidney. Nonobstructive stone of the right kidney inferior pole measuring 6 mm. Multiple nonobstructing stones of the left kidney. Unchanged scarring of the left kidney. No hydronephrosis. No hydroureter. No bladder wall thickening. Appendix is normal. No small bowel dilation. No adjacent mesenteric edema. No retroperitoneal, pelvic or inguinal adenopathy. Mild degeneration of the bilateral sacroiliac joints. No acute osseous abnormality. CT/CT abdomen pelvis wo con IMPRESSION: 1. No hydronephrosis. No hydroureter. 2. Bilateral nonobstructive kidney stones. 3. No bladder stones. No focal bladder wall thickening. 4. Cholecystectomy 5. Other findings as described. Electronically authenticated by: JASON KHALIL Date: 02/20/2024 12:11
[2024-02-20 11:09] LABS: Alanine Aminotransferase 59 U/L (14-59); Albumin Globulin Ratio 0.9; Albumin Level 3.7 g/dL (3.4-5.0); Alkaline Phosphatase 76 U/L (46-116); Aspartate Amino Transferase 39 U/L (15-37); Bilirubin Total 0.4 mg/dL (0.2-1.0); Calcium 9.6 mg/dL (8.5-10.1); Carbon Dioxide 26.9 mmol/L (21.0-32.0); Chloride 105 mmol/L (98-107); Estimated GFR (African America >60 (>=60); Estimated GFR (Non-African Ame >60 (>=60); Globulin 4.1 g/dL; Glucose 94 mg/dL (74-106); Potassium 3.9 mmol/L (3.5-5.1); Sodium 140 mmol/L (136-145); Total Protein 7.8 g/dL (6.4-8.2)
[2024-02-20] MEDS: ONDANSETRON PF 4 MG/2 ML VIAL IV (11:11)
[2024-02-20] MEDS: KETOROLAC TROMETHAMINE 30 MG/ML VIAL 15 MG IVP (11:14)
[2024-02-20] MEDS: MORPHINE SULFATE 4 MG/ML VIAL IV ×2 (11:16→12:19)
[2024-02-20 11:21] LABS: Basophils Absolute Auto 0.1 10^3/uL (0.0-0.1); Basophils Percent Auto 0.8 % (0.2-2.0); Eosinophils Absolute Auto 0.1 10^3/uL (0.0-0.7); Eosinophils Percent Auto 0.8 % (0.9-7.0); Hematocrit 41.7 % (36.0-48.0); Hemoglobin 13.5 g/dL (12.0-16.0); Immature Granulocytes Abs Auto 0.02 10^3/uL (0.00-0.03); Immature Granulocytes Pct Auto 0.3 % (0.0-0.5); Lymphocytes Absolute Auto 2.2 10^3/uL (1.2-3.8); Lymphocytes Percent Auto 30.1 % (20.5-60.0); Mean Corpuscular HGB Conc 32.4 g/dL (29.9-35.2); Mean Corpuscular Hemoglobin 27.6 pg (26.7-34.0); Mean Corpuscular Volume 85.3 fL (81.0-99.0); Mean Platelet Volume 9.8 fL (9.5-13.5); Monocytes Absolute Auto 0.6 10^3/uL (0.3-0.8); Monocytes Percent Auto 7.7 % (1.7-12.0); Neutrophils Absolute Auto 4.4 10^3/uL (1.4-6.5); Neutrophils Percent Auto 60.3 % (43.0-75.0); Platelet Count 385 10^3/uL (150-450); Red Blood Count 4.89 10^6/uL (4.20-5.40); Red Cell Distribution Width 13.2 % (11.0-15.0); White Blood Count 7.2 10^3/uL (4.0-11.0)
[2024-02-20 11:27] LABS: Bilirubin Urine NEGATIVE (NEGATIVE); Blood Urine NEGATIVE (NEGATIVE); Clarity Urine CLEAR (CLEAR); Color Urine LT. YELLOW (YELLOW); Glucose Urine UA NEGATIVE (NEGATIVE); Ketones Urine NEGATIVE (NEGATIVE); Leukocyte Esterase Urine SMALL (NEGATIVE); Nitrite Urine POSITIVE (NEGATIVE); Protein Urine NEGATIVE (NEG/TRACE); Urobilinogen Urine 0.2 EU/dL (0.2-1.0)
[2024-02-20 11:28] LABS: Urine Microscopic Indicated YES
[2024-02-20 11:38] LABS: WBC Urine 20-50 #/HPF (NONE SEEN)
[2024-02-20 11:40] LABS: Cast Seen? NONE SEEN #/LPF (NONE SEEN); Crystals Seen? None Seen #/HPF (None Seen); Mucus Urine MODERATE (NONE SEEN); RBC Urine NONE SEEN #/HPF (0-2); Squamous Epithelial Cell Urine FEW #/LPF (NONE/RARE); Urine Culture Indicated YES
[2024-02-20 11:41] LABS: Bacteria Urine LARGE #/HPF (NONE SEEN)
[2024-02-20] MEDS: 0.9 % SODIUM CHLORIDE 1,000 ML 999 ML IV (11:48)
[2024-02-20 11:50] VITALS: BP 125/81; PULSE 76; O2SAT 99
[2024-02-20] MEDS: CEFTRIAXONE 1,000 MG in 0.9 % SODIUM CHLORIDE 50 ML 100 MG IV (12:19)
--- NOTE | 2024-02-20 13:14 | ED.GENADUL1 ---
HPI HPI - General Adult General Chief complaint: Abdominal Pain Stated complaint: FLANK PAIN Time Seen by Provider: 02/20/24 10:27 Source: patient Mode of arrival: walk-in History of Present Illness HPI narrative: 33-year-old female to the emergency approach chief complaint left-sided flank pain. Symptoms worsening over the last two days. She denies any hematuria. She does have a history kidney stones. She reports some dysuria and frequency. She denies any fever or chills. Denies any nausea or vomiting. She has a history of urinary tract infections as well. Status post hysterectomy. Related Data Home Medications ?Medication ?Instructions ?Recorded ?Confirmed amoxicillin 875 mg-potassium 1 tab PO Q12H 02/20/24 02/20/24 clavulanate 125 mg tablet Previous Rx's ?Medication ?Instructions ?Recorded cephalexin 500 mg capsule 500 mg PO Q6H 7 days #28 caps 02/20/24 ondansetron 4 mg disintegrating 4 mg PO Q8H PRN nausea and 02/20/24 tablet vomiting 4 days #16 tabs oxycodone-acetaminophen 5 mg-325 1 tab PO Q6H PRN pain #12 tabs 02/20/24 mg tablet (Percocet) Allergies Allergy/AdvReac Type Severity Reaction Status Date / Time No Known Drug Allergies Allergy Verified 12/29/23 08:53 Opioid HPI Opioid Management Most Recent Opioid Data: Last Pain Scale 6 02/20/24 12:19 Last ED Pain Assessment 02/20/24 11:51 Last MAR Pain Assessment 02/20/24 12:19 Review of Systems ROS Status of ROS 10 or more systems reviewed and unremarkable except as noted in history and below [facility] Medical History (Updated 02/20/24 @ 12:25 by Thang Richey MD) Anxiety and depression ?F41.9 - Anxiety disorder, unspecified (ICD-10) ?F32.A - Depression, unspecified (ICD-10) Kidney stones ?N20.0 - Calculus of kidney (ICD-10) Bipolar disorder ?F31.9 - Bipolar disorder, unspecified (ICD-10) Kidney stones ?N20.0 - Calculus of kidney (ICD-10) Surgical History (Updated 12/29/23 @ 08:54 by Chrissy Montilla) History of ultrasound guided needle biopsy ?Z98.890 - Other specified postprocedural states (ICD-10) H/O local excision of skin lesion ?Z98.890 - Other specified postprocedural states (ICD-10) S/P extracorporeal shock wave therapy (03/2023) ?Z98.890 - Other specified postprocedural states (ICD-10) History of wisdom tooth extraction ?K08.409 - Partial loss of teeth, unspecified cause, unspecified class (ICD-10) H/O LEEP ?Z98.890 - Other specified postprocedural states (ICD-10) History of endometrial ablation ?Z98.890 - Other specified postprocedural states (ICD-10) S/P cystoscopy ?Z98.890 - Other specified postprocedural states (ICD-10) S/P ureteral stent placement ?Z96.0 - Presence of urogenital implants (ICD-10) H/O ureteroscopy ?Z98.890 - Other specified postprocedural states (ICD-10) History of cholecystectomy ?Z90.49 - Acquired absence of other specified parts of digestive tract (ICD-10) Family History (Updated 03/30/23 @ 10:56 by Natalee Jules) Other Family history of hypertension Social History (Updated 04/24/23 @ 10:12 by Valencia Chavez NP) Within the past year, how often did you have a drink containing alcohol: monthly or less Smoking status: Never smoker Non-prescribed substance use: denies use 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 GENERAL: Well developed, well appearing adult in no acute distress. NEURO: Alert and oriented. Moves all extremities. Face is symmetric and expressive. EYES: PERRL. No scleral icterus or conjunctival injection. No discharge. HENT: Normocephalic, atraumatic. Hearing is grossly intact. Nares grossly patent and without discharge. Mucous membranes moist. NECK: No JVD. Patient moves neck without restriction. CARDIO: Rhythm regular. Normal rate. No murmur, rub, or gallop. Pulses equal bilaterally in the upper and lower extremity. No lower extremity edema. PULM: Lungs clear to auscultation in all [place]. No wheezes, rales, or rhonchi. No conversational dyspnea. No splinting, stridor, or accessory muscle use. GI/: Abdomen is soft and non-tender. Normoactive bowel sounds. EXTREMITIES: Symmetric muscle bulk. No joint swelling. No clubbing, cyanosis, or deformity. SKIN: Warm and dry. Normal turgor. No rash or lesions appreciated. PSYCH: Mood, affect, and interaction is appropriate to the setting. Constitutional Vital Signs, click to edit/add: Last Vital Signs Temp 97.7 F 02/20/24 10:13 Pulse 76 02/20/24 11:50 Resp 16 02/20/24 11:50 BP 125/81 02/20/24 11:50 Pulse Ox 99 02/20/24 11:50 O2 Del Method Room Air 02/20/24 11:50 Course Vital Signs Vital signs: Vital Signs Temperature 97.7 F 02/20/24 10:13 Pulse Rate 84 02/20/24 10:13 Respiratory Rate 18 02/20/24 10:13 Blood Pressure 144/83 H 02/20/24 10:13 Pulse Oximetry 98 02/20/24 10:13 Oxygen Delivery Method Room Air 02/20/24 10:13 Temperature 97.7 F 02/20/24 10:13 Pulse Rate 76 02/20/24 11:50 Respiratory Rate 16 02/20/24 11:50 Blood Pressure 125/81 02/20/24 11:50 Pulse Oximetry 99 02/20/24 11:50 Oxygen Delivery Method Room Air 02/20/24 11:50 Medical Decision Making [facility] Narrative Medical decision making narrative: 14-year-old female to emergency Department with a left flank pain. Vital stable, the patient is afebrile. Pain medication, Zofran, fluids were ordered for the patient. Basic labs, CT scan ordered to evaluate for kidney stone. Patient agrees with this plan. CBC and chemistry without major abnormalities. Urinalysis is consistent with acute urinary tract infection.CT scan without obstructive uropathy. Symptoms are concerning for pyelonephritis. She is given Rocephin here. Keflex 4 times a day for home. Zofran and Percocet were prescribed for symptom control. Return precautions were discussed. All questions were answered. The patient was discharged home. Lab Data Labs: Lab Results 02/20/24 02/20/24 Range/Units 10:15 10:25 WBC 7.2 (4.0-11.0) 10^3/uL RBC 4.89 (4.20-5.40) 10^6/uL Hgb 13.5 (12.0-16.0) g/dL Hct 41.7 (36.0-48.0) % MCV 85.3 (81.0-99.0) fL MCH 27.6 (26.7-34.0) pg MCHC 32.4 (29.9-35.2) g/dL RDW 13.2 (11.0-15.0) % Plt Count 385 (150-450) 10^3/uL MPV 9.8 (9.5-13.5) fL Neut % (Auto) 60.3 (43.0-75.0) % Lymph % (Auto) 30.1 (20.5-60.0) % [place] % (Auto) 7.7 (1.7-12.0) % Eos % (Auto) 0.8 L (0.9-7.0) % Baso % (Auto) 0.8 (0.2-2.0) % Neut # (Auto) 4.4 (1.4-6.5) 10^3/uL Lymph # (Auto) 2.2 (1.2-3.8) 10^3/uL [place] # (Auto) 0.6 (0.3-0.8) 10^3/uL Eos # (Auto) 0.1 (0.0-0.7) 10^3/uL Baso # (Auto) 0.1 (0.0-0.1) 10^3/uL Abs Immat Gran (auto) 0.02 (0.00-0.03) 10^3/uL Imm/Tot Granulo (auto) 0.3 (0.0-0.5) % Sodium 140 (136-145) mmol/L Potassium 3.9 (3.5-5.1) mmol/L Chloride 105 (98-107) mmol/L Carbon Dioxide 26.9 (21.0-32.0) mmol/L Anion Gap 12.0 BUN 5.0 L (7.0-18.0) mg/dL Creatinine 0.84 (0.55-1.02) mg/dL Est GFR ( Amer) >60 (>=60) Est GFR (Non-Af Amer) >60 (>=60) BUN/Creatinine Ratio 6.0 Glucose 94 (74-106) mg/dL Calcium 9.6 (8.5-10.1) mg/dL Total Bilirubin 0.4 (0.2-1.0) mg/dL AST 39 H (15-37) U/L ALT 59 (14-59) U/L Alkaline Phosphatase 76 (46-116) U/L Total Protein 7.8 (6.4-8.2) g/dL Albumin 3.7 (3.4-5.0) g/dL Globulin 4.1 g/dL Albumin/Globulin Ratio 0.9 Urine Color Lt. yellow (YELLOW) Urine Clarity Clear (CLEAR) Urine pH 7.0 (5.0-9.0) Ur Specific [place] 1.020 (1.005-1.025) Urine Protein Negative (NEG/TRACE) mg/dL Urine Glucose (UA) Negative (NEGATIVE) mg/dL Urine Ketones Negative (NEGATIVE) mg/dL Urine Occult Blood Negative (NEGATIVE) Urine Nitrite Positive A (NEGATIVE) Urine Bilirubin Negative (NEGATIVE) Urine Urobilinogen 0.2 (0.2-1.0) EU/dL Ur Leukocyte Esterase Small A (NEGATIVE) Urine RBC None seen (0-2) #/HPF Urine WBC 20-50 A (NONE SEEN) #/HPF Ur Squamous Epith Cells Few A (NONE/RARE) #/LPF Urine Crystals None seen (None Seen) #/HPF Urine Bacteria Large A (NONE SEEN) #/HPF Urine Casts None seen (NONE SEEN) #/LPF Urine Mucus Moderate A (NONE SEEN) Ur Culture Indicated? Yes Discharge Plan Discharge Stand Alone Forms: Portal Instructions Chief Complaint: Abdominal Pain Clinical Impression: Pyelonephritis Patient Disposition: Home, Self-Care Time of Disposition Decision: 12:22 Condition: Good Mode of Transportation: Private Vehicle Prescriptions / Home Meds: New cephalexin 500 mg capsule 500 mg PO Q6H 7 Days Qty: 28 0RF ondansetron 4 mg tablet,disintegrating 4 mg PO Q8H PRN (Reason: nausea and vomiting) 4 Days Qty: 16 0RF oxycodone-acetaminophen [Percocet] 5-325 mg tablet 1 tab PO Q6H PRN (Reason: pain) Qty: 12 0RF No Action amoxicillin-pot clavulanate 875-125 mg tablet 1 tab PO Q12H Print Language: Kazakh Instructions: Kidney Infection (ED) Referrals: Ignacio Das MD [Primary Care Provider] - 1 week Discharge Date/Time: 02/20/24 13:11
== END 2024-02-20 13:11 | disposition home or self-care (01) ==
PROVIDERS: Emergency Provider Student in an Organized Health Care Education/Training Program; PCP Family Medicine
DX: N12 Tubulo-interstitial nephritis, not specified as acute or chronic (principal); F41.9 Anxiety disorder, unspecified; Z87.442 Personal history of urinary calculi; F31.9 Bipolar disorder, unspecified; Z98.890 Other specified postprocedural states; Z90.710 Acquired absence of both cervix and uterus; Z87.440 Personal history of urinary (tract) infections; Z90.49 Acquired absence of other specified parts of digestive tract
CPT/HCPCS: 36415; 74176; 80053; 81001; 85025; 87086; 87150; 87186; 96365; 96375; 96376; 99284

== ENCOUNTER 2024-02-28 09:33 | Emergency (ER) | payer OTHER, SELFPAY ==
[2024-02-28 09:44] VITALS: BP 112/80; PULSE 84; TEMP 36.8; O2SAT 98; BMI 30.7
--- NOTE | 2024-02-28 09:59 | ED_ITS ---
HPI - Abdominal Pain General Chief Complaint: Abdominal Pain Stated Complaint: ABDOMINAL PAIN Time Seen by Provider: 02/28/24 09:53 Source: patient Mode of arrival: walk-in Limitations: no limitations History of Present Illness HPI narrative: 33-year-old female presents for left flank and abdominal pain. She was treated here a week ago for pyelonephritis. She received IV Rocephin and was placed on Keflex and she states she has been taking it but she does not feel any better. No trauma or fever. No gross hematuria. She has a history of kidney stones as well. The pain is moderate and continuous. Related Data Previous Rx's ?Medication ?Instructions ?Recorded cephalexin 500 mg capsule 500 mg PO Q6H 7 days #28 caps 02/20/24 ondansetron 4 mg disintegrating 4 mg PO Q8H PRN nausea and 02/20/24 tablet vomiting 4 days #16 tabs oxycodone-acetaminophen 5 mg-325 1 tab PO Q6H PRN pain #12 tabs 02/20/24 mg tablet (Percocet) Allergies Allergy/AdvReac Type Severity Reaction Status Date / Time No Known Drug Allergies Allergy Verified 02/28/24 09:44 Review of Systems ROS Narrative A ten point review of systems is negative except as noted above. [facility] Medical History (Updated 02/28/24 @ 11:20 by Nawaf Soto MD) Anxiety and depression ?F41.9 - Anxiety disorder, unspecified (ICD-10) ?F32.A - Depression, unspecified (ICD-10) Kidney stones ?N20.0 - Calculus of kidney (ICD-10) Bipolar disorder ?F31.9 - Bipolar disorder, unspecified (ICD-10) Kidney stones ?N20.0 - Calculus of kidney (ICD-10) Surgical History (Updated 12/29/23 @ 08:54 by Chrissy Montilla) History of ultrasound guided needle biopsy ?Z98.890 - Other specified postprocedural states (ICD-10) H/O local excision of skin lesion ?Z98.890 - Other specified postprocedural states (ICD-10) S/P extracorporeal shock wave therapy (03/2023) ?Z98.890 - Other specified postprocedural states (ICD-10) History of wisdom tooth extraction ?K08.409 - Partial loss of teeth, unspecified cause, unspecified class (ICD- 10) H/O LEEP ?Z98.890 - Other specified postprocedural states (ICD-10) History of endometrial ablation ?Z98.890 - Other specified postprocedural states (ICD-10) S/P cystoscopy ?Z98.890 - Other specified postprocedural states (ICD-10) S/P ureteral stent placement ?Z96.0 - Presence of urogenital implants (ICD-10) H/O ureteroscopy ?Z98.890 - Other specified postprocedural states (ICD-10) History of cholecystectomy ?Z90.49 - Acquired absence of other specified parts of digestive tract (ICD- 10) Family History (Updated 03/30/23 @ 10:56 by Natalee Jules) Other Family history of hypertension Social History (Updated 04/24/23 @ 10:12 by Valencia Chavez NP) Within the past year, how often did you have a drink containing alcohol: monthly or less Smoking status: Never smoker Non-prescribed substance use: denies use 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 General: The patient appears well and in no apparent distress. Patient is resting comfortably on cart. Skin: Warm, dry, no pallor noted. There is no rash noted. Head: Normocephalic, atraumatic Eye: Normal conjunctiva, no drainage Ears, Nose, Mouth, and Throat: oral mucosa is moist. Nares patent. Cardiovascular: Regular Rate and Rhythm Respiratory: Patient is in no distress, no accessory muscle use, lungs are clear to auscultation, no wheezing, rales or rhonchi Back: non-tender, no CVA tenderness bilaterally to percussion. GI: Mild to minimal on the left side of the abdomen Musculoskeletal: The patient has no evidence of calf tenderness, no pitting edema, symmetrical pulses noted bilaterally Neurological: A&O, normal speech Psychiatric: Cooperative Constitutional Vital Signs, click to edit/add: Last Vital Signs Temp 98.2 F 02/28/24 09:44 Pulse 69 02/28/24 11:12 Resp 16 02/28/24 11:12 BP 110/72 02/28/24 11:12 Pulse Ox 98 02/28/24 11:12 O2 Del Method Room Air 02/28/24 11:12 Course Vital Signs Vital signs: Vital Signs Temperature 98.2 F 02/28/24 09:44 Pulse Rate 84 02/28/24 09:44 Respiratory Rate 16 02/28/24 09:44 Blood Pressure 112/80 02/28/24 09:44 Pulse Oximetry 98 02/28/24 09:44 Oxygen Delivery Method Room Air 02/28/24 09:44 Temperature 98.2 F 02/28/24 09:44 Pulse Rate 69 02/28/24 11:12 Respiratory Rate 16 02/28/24 11:12 Blood Pressure 110/72 02/28/24 11:12 Pulse Oximetry 98 02/28/24 11:12 Oxygen Delivery Method Room Air 02/28/24 11:12 MDM - Abdominal Pain MDM Narrative Medical decision making narrative: Blood work including WBC is normal. Urinalysis is completely normal. She had a normal CAT scan 8 days ago and I do not have a an indication to repeat it. Findings are discussed with the patient and she will follow-up with her PCP. There is no evidence of pyelonephritis or UTI or kidney stone. Differential Diagnosis Differential diagnosis: Likely abdominal pain and calculus of kidney Lab Data Attestation: I reviewed the patient's lab results. Labs: Lab Results 02/28/24 02/28/24 Range/Units 09:50 10:00 WBC 6.6 (4.0-11.0) 10^3/uL RBC 4.72 (4.20-5.40) 10^6/uL Hgb 13.2 (12.0-16.0) g/dL Hct 40.8 (36.0-48.0) % MCV 86.4 (81.0-99.0) fL MCH 28.0 (26.7-34.0) pg MCHC 32.4 (29.9-35.2) g/dL RDW 13.4 (11.0-15.0) % Plt Count 329 (150-450) 10^3/uL MPV 9.3 L (9.5-13.5) fL Neut % (Auto) 59.6 (43.0-75.0) % Lymph % (Auto) 30.6 (20.5-60.0) % [place] % (Auto) 7.7 (1.7-12.0) % Eos % (Auto) 0.9 (0.9-7.0) % Baso % (Auto) 0.9 (0.2-2.0) % Neut # (Auto) 4.0 (1.4-6.5) 10^3/uL Lymph # (Auto) 2.0 (1.2-3.8) 10^3/uL [place] # (Auto) 0.5 (0.3-0.8) 10^3/uL Eos # (Auto) 0.1 (0.0-0.7) 10^3/uL Baso # (Auto) 0.1 (0.0-0.1) 10^3/uL Abs Immat Gran (auto) 0.02 (0.00-0.03) 10^3/uL Imm/Tot Granulo (auto) 0.3 (0.0-0.5) % Sodium 138 (136-145) mmol/L Potassium 4.0 (3.5-5.1) mmol/L Chloride 104 (98-107) mmol/L Carbon Dioxide 28.2 (21.0-32.0) mmol/L Anion Gap 9.8 BUN 8.0 (7.0-18.0) mg/dL Creatinine 0.79 (0.55-1.02) mg/dL Est GFR ( Amer) >60 (>=60) Est GFR (Non-Af Amer) >60 (>=60) BUN/Creatinine Ratio 10.1 Glucose 96 (74-106) mg/dL Calcium 9.2 (8.5-10.1) mg/dL Urine Color Lt. yellow (YELLOW) Urine Clarity Clear (CLEAR) Urine pH 6.5 (5.0-9.0) Ur Specific [place] 1.020 (1.005-1.025) Urine Protein Negative (NEG/TRACE) mg/dL Urine Glucose (UA) Negative (NEGATIVE) mg/dL Urine Ketones Negative (NEGATIVE) mg/dL Urine Occult Blood Trace-i (NEGATIVE) Urine Nitrite Negative (NEGATIVE) Urine Bilirubin Negative (NEGATIVE) Urine Urobilinogen 0.2 (0.2-1.0) EU/dL Ur Leukocyte Esterase Negative (NEGATIVE) Urine RBC 0-2 (0-2) #/HPF Urine WBC 0-2 A (NONE SEEN) #/HPF Ur Squamous Epith Cells Rare (NONE/RARE) #/LPF Urine Crystals None seen (None Seen) #/HPF Urine Bacteria None seen (NONE SEEN) #/HPF Urine Casts None seen (NONE SEEN) #/LPF Urine Mucus Trace A (NONE SEEN) Discharge Plan Discharge Stand Alone Forms: Portal Instructions Chief Complaint: Abdominal Pain Clinical Impression: Abdominal pain Patient Disposition: Home, Self-Care Time of Disposition Decision: 11:20 Condition: Good Mode of Transportation: Private Vehicle Prescriptions / Home Meds: No Action cephalexin 500 mg capsule 500 mg PO Q6H 7 Days Qty: 28 0RF ondansetron 4 mg tablet,disintegrating 4 mg PO Q8H PRN (Reason: nausea and vomiting) 4 Days Qty: 16 0RF oxycodone-acetaminophen [Percocet] 5-325 mg tablet 1 tab PO Q6H PRN (Reason: pain) Qty: 12 0RF Print Language: [place] Instructions: Abdominal Pain (ED) Referrals: Ignacio Das MD [Primary Care Provider] - 1 week
[2024-02-28] MEDS: 0.9 % SODIUM CHLORIDE 1,000 ML 1000 ML IV (10:06)
--- OUTSIDE RECORDS SUMMARY | 2024-02-28 10:07 | XMS_ITS | CCD ---
Author Organization [facility] Care Team Providers Care Supervisor Contact Lens Name Role Phone Domingo Das MD Unavailable [...] XIAO Attending Unavailable FARTUN NOVOA Consulting Unavailable VRAUN ., ORA Attending Unavailable VARUN ., ORA [...] VILLA Attending Unavailable Caesar VILLA Attending Unavailable VILLACaesar Attending Unavailable CELIO VAN Attending Unavailable Domingo [...] BID, # 30 tab(s), Refills(s) 3, Pharmacy: [facility]/pharmacy #[id number], 168, cm, 03/20/23 10:32:00 [...] 02-16-2023 Episodic Other aftercare (1 source) Other shelter (current) drug therapy; Translations: [OTH RESIDENTIAL CURRENT DRUG THERAPY] Onset: 02-18-2023 Episodic Other aftercare (1 source) long term (current) use of oral hypoglycemic drugs; Translations: [RESIDENTIAL USE ORAL HYPOGLYCEMIC DX] Onset: 02-18-2023 Episodic [...] Test Name Value Interpretation Reference Range Facility [facility] [place] 12-29-2023 L Specimen: [id number] Received: 12/29/23 Status: DAQUAN Moon Num: [id number] Spec Type: Surgical Subm Dr: Glen Graff MD Tissues: A BREAST CORE NO CALCS (LT BREAST 6:00) Procedures: PAS - LGRN, HE/2, Gross/Micro L4, AE1-AE3, CD68 Age/ Patient Sex Location Account Attending Physician Diana Barriga 33/F [place] [id number] Glen Graff MD SPEC NUM: [id number] RECD: 12/29/23 STATUS: DAQUAN MOON NUM: [id number] KELBY: 12/29/23- SUBM DR: Glen Graff MD ENTERED: 12/29/[address] [facility] [address]: Roula,Miles Gibbs SPEC TYPE: Surgical DEPT: [...] AM 12/29/2023, time out of -------- Specimen: [id number] Received: 12/29/23 Status: DAQUAN Moon Num: [id number] Spec Type: Surgical Subm Dr: Glen Graff MD Tissues: A BREAST CORE NO CALCS (LT BREAST 6:00) Procedures: PAS - LGRN, HE/2, Gross/Micro L4, AE1-AE3, CD68 -------- Patient: Diana Barriga [id number] (Continued) -------- Specimen: [id number] Received: 12/29/23 (Continued) Gross Description (Continued) Signed (signature on file) Swathi Dumas MD 12/30/23 1834 -------- Specimen: [id number] Received: 12/29/23 Status: DAQUAN Moon Num: [id number] Spec Type: Surgical Subm Dr: Glen Graff MD Tissues: A BREAST CORE NO CALCS (LT BREAST 6:00) Procedures: PAS - LGRN, HE/2, Gross/Micro L4, AE1-AE3, CD68 -------- Patient: Diana Barriga Boogie [id number] (Continued) -------- Specimen: [id number] Received: 12/29/23 (Continued) Gross Description (Continued) formalin: 6 PM 12/29/2023. Cold Ischemia and Fixation Time meets the requirements specified in the latest version of the ASCO/CAP guidelines: Yes. Cold Ischemic Time: 0.03 Formalin Fixation Time: 9.85 CPT Codes 14346 [id number] -------- -------- Specimen: [id number] Received: 12/29/23 Status: DAQUAN Moon Num: [id number] Spec Type: Surgical Subm Dr: Glen Graff MD Tissues: A BREAST CORE NO CALCS ( BREAST 6:00) Procedures: PAS - LGRN, HE/2, Gross/Micro L4, AE1-AE3, CD68 -------- Patient: Diana Barriga [id number] (Continued) -------- Signed (signature on file) Swathi Dumas MD 12/30/231833 [facility] Patient Letter FTon 2023 Patient Letter [facility] December 04, 2023 DIANA BARRIGA [address] [place] [address] : 1990 Dear Diana, You missed your [...] any future cancellations. Sincerely, [facility] [address], [place] [address] [facility] Lab Reportson 06-05-2023 Lab Reports [id number]#1 .00CD:127 [facility] Reminderson 04-24-2023 Reminders - From: Whitney [...] the pt with the results. duplicate message [facility] Operative Reporton Operative Report [id number]#1. 00CD:127 [facility] RAD - MISCon 04-10-2023 RAD - MISC [id number]#1 .00CD:127 [facility] Lab Reportson 04-06-2023 Lab Reports [id number]#1 .00CD:127 Normal [facility] Lab Reports [id number]#1 .00CD:127 [facility] Lab Reportson 03-23-2023 Lab Reports [id number]#1 .00CD:127 [facility] Lab Reports [id number]#1 .00CD:127 [facility] Lab Reports [id number]#1 .00CD:127 [facility] RAD - CT Reporton 03-23-2023 RAD - CT Report [id number]#1 .00CD:127 [facility] RAD - CT Report [id number]#1 .00CD:127 [facility] Ambulatory Visit Summaryon 0 03-20-2023 Ambulatory [...] When: Where: [facility] [address] [place] [address]- Medications What When Instructions Unchanged olanzapine-samidorpha n [...] handful of b (more content not included)... [facility] Consent for Procedure/Surger yon 03-20-2023 Consent for Procedure/Surgery [id number]#1 .00CD:127 [facility] Patient Educationon 03-20-20 23 Patient Education [...] Spinach (cooked), rhubarb, beets, sweet potatoes, and Hong Konger chard. ? Peanuts. ? Potato chips, yemeni fries, and baked potatoes with skin on. ? Nuts and nut products. ? Chocolate. ? If you regularly take a diuretic medicine, make sure to eat at least 1 or 2 servings of fruits or vegetables that are high in potassium each day. These include: ? Avocado. ? Banana. ? Turner, prune, carrot, or tomato juice. ? Baked [...] fish oil, or vitamin B6. ? Take wrtn-ywf-iqmtrnc and prescription medicines only as told by your health care provider. These include supplements. What foods should I limit? Limit your in (more content not included)... Normal [facility] Urology Office/Clinic Noteon 03-20-2023 Urology Office/Clinic [...] Lt kidney pain. Did got to the [place] ER. DX'd & treated for UTI. (NEG [...] L. Ox slightly elevated. Pt presented to [facility] ER on 03/06/23 due to L [...] mg qd. SEs discussed. Rx sent to [facility]. -Electrolyte panel 4 weeks to the day [...] When Contact Information IDALMIS BORDEN, Caesar Turner, [facility] [address], [place] [address]- Additional Instructions: schedule R ESWL Patient Education [...] kidney s (more content not included)... Normal [facility] Comment on above: Result Comment: Elec tronically Signed By: Caesar VILLA MD\.br\Date and Time Signed: 03/20/23 11:30 EDT\.br\Electronically Co-Signed By: Whitney Collier\.br\Date and Time Co-Signed: 03/20/23 11:28 EDT CBC AUTO DIFFon 02-16-2023 BASO # 0.1 103/ul Normal 0.0-0.1 [facility] Comment on above: Performed By: #### U KJ 24 #### [facility] [address] [address] [address] Ramses Dumas Basophils/100 WBC (Bld) 0.5 % Normal 0.2-2.0 [facility] Comment on above: Performed By: #### U KJ 24 #### [facility] [address] [address] [address] Ramses Dumas EO # 0.0 103/ul Normal 0.0-0.7 [facility] Comment on above: Performed By: #### U KJ 24 #### [facility] [address] [place] [address] Dr. Ramses Dumas Eosinophils/100 WBC (Bld) 0.4 % Critically low 0.9-7.0 [facility] Comment on above: Performed By: #### U KJ 24 #### [facility] [address] [place] [address] Dr. Ramses Dumas Erythrocyte distribution width (RBC) [Ratio] 13.7 % Normal 11.0-15.0 [facility] Comment on above: Performed By: #### U KJ 24 #### [facility] [address] [place] [address] Dr. Ramses Dumas Hematocrit (Bld) [Volume fraction] 45.1 % Normal 36.0-48.0 [facility] Comment on above: Performed By: #### U KJ 24 #### [facility] [address] [place] [address] Dr. Ramses Dumas Hemoglobin (Bld) [Mass/Vol] 14.3 g/dL Normal 12.0-16.0 [facility] Comment on above: Performed By: #### U KJ 24 #### [facility] [address] [place] [address] Dr. Ramses Dumas IG # 0.02 10e3/ul Normal 0.00-0.03 [facility] Comment on above: Performed By: #### U KJ 24 #### [facility] [address] [place] [address] Dr. Ramses Dumas IG % 0.2 % Normal 0.0-0.5 [facility] Comment on above: Performed By: #### U KJ 24 #### [facility] [address] [address] [address] Ramses Dumas LYMPH # 2.5 103/ul Normal 1.2-3.8 [facility] Comment on above: Performed By: #### U KJ 24 #### [facility] [address] [address] [address] Ramses Dumas Lymphocytes/100 WBC (Bld) 26.4 % Normal 20.5-60.0 [facility] Comment on above: Performed By: #### U KJ 24 #### [facility] [address] [address] [address] Ramses Dumas MANUAL DIFF REQ NO Normal [facility] Comment on above: Performed By: #### U KJ 24 #### [facility] [address] [place] [address] Dr. Ramses Dumas MCH (RBC) [Entitic mass] 25.6 pg Critically low 26.7-34.0 [facility] Comment on above: Performed By: #### U KJ 24 #### [facility] [address] [address] [address] Ramses Dumas MCHC (RBC) [Mass/Vol] 31.7 g/dL Normal 29.9-35.2 [facility] Comment on above: Performed By: #### U KJ 24 #### [facility] [address] [place] [address] Dr. Ramses Dumas MCV (RBC) [Entitic vol] 80.7 fL Critically low 81.0-99.0 [facility] Comment on above: Performed By: #### U KJ 24 #### [facility] [address] [address] [address] Ramses Dumas MONO # 0.7 103/ul Normal 0.3-0.8 [facility] Comment on above: Performed By: #### U KJ 24 #### [facility] [address] [address] [address] Ramses Dumas Monocytes/100 WBC (Bld) 7.6 % Normal 1.7-12.0 [facility] Comment on above: Performed By: #### U KJ 24 #### [facility] [address] [place] [address] Dr. Ramses Dumas NEUT # 6.1 103/ul Normal 1.4-6.5 [facility] Comment on above: Performed By: #### U KJ 24 #### [facility] [address] [place] [address] Dr. Ramses Dumas Neutrophils/100 WBC (Bld) 64.9 % Normal 43.0-75.0 [facility] Comment on above: Performed By: #### U KJ 24 #### [facility] [address] [place] [address] Dr. Ramses Dumas Platelet mean volume (Bld) [Entitic vol] 11.0 fL Normal 9.5-13.5 [facility] Comment on above: Performed By: #### U KJ 24 #### [facility] [address] [place] [address] Dr. Ramses Dumas PLT 270 103/ul Normal 150-450 [facility] Comment on above: Performed By: #### U KJ 24 #### [facility] [address] [place] [address] Dr. Ramses Dumas RBC 5.59 106/ul Critically high 4.20-5.40 [facility] Comment on above: Performed By: #### U KJ 24 #### [facility] [address] [place] [address] Dr. Ramses Dumas WBC 9.4 103/ul Normal 4.0-11.0 [facility] Comment on above: Performed By: #### U KJ 24 #### [facility] [address] [place] [address] ABD/PELV W CONon [...] by: FARTUN NOVOA Date: 2023-02-16 18:21 Normal [facility] ER URINE PROFILEon 3 Bilirubin Ql (U) SMALL Abnormal NEGATIVE [facility] Comment on above: Performed By: #### C MP #### [facility] [address] [place] [address] Dr. Ramses Dumas Clarity (U) CLEAR Normal CLEAR [facility] Comment on above: Performed By: #### C MP #### [facility] [address] [address] [address] Ramses Dumas Color (U) YELLOW Normal YELLOW [facility] Comment on above: Performed By: #### C MP #### [facility] [address] [place] [address] Dr. Ramses Dumas ERUAHD A micrscopic examination will be performed if indicated. Normal [facility] Comment on above: Performed By: #### C MP #### [facility] [address] [address] [address] Ramses Dumas Glucose Ql (U) Negative Normal NEGATIVE [facility] Comment on above: Performed By: #### C MP #### [facility] [address] [place] [address] Dr. Ramses Dumas Hemoglobin Ql (U) Negative Normal NEGATIVE [facility] Comment on above: Performed By: #### C MP #### [facility] [address] [address] [address] Ramses Dumas Ketones Ql (U) 40 mg/dl Abnormal NEGATIVE [facility] Comment on above: Performed By: #### C MP #### [facility] [address] [place] [address] Dr. Ramses Dumas LEUKOCYTES SMALL Abnormal NEGATIVE [facility] Comment on above: Performed By: #### C MP #### [facility] [address] [place] [address] Dr. Ramses Dumas Nitrite Ql (U) Negative Normal NEGATIVE [facility] Comment on above: Performed By: #### C MP #### [facility] [address] [place] [address] Dr. Ramses Dumas pH (U) 7.0 [pH] Normal 5-9 [facility] Comment on above: Performed By: #### C MP #### [facility] [address] [place] [address] Dr. Ramses Dumas Protein (U) [Mass/Vol] 30 mg/dL Abnormal NEGAT CHRIS/ TRACE [facility] Comment on above: Performed By: #### C MP #### [facility] [address] [place] [address] Dr. Ramses Dumas SPEC GRAVITY 1.020 Normal 1.005-<=1.02 5 [facility] Comment on above: Performed By: #### C MP #### [facility] [address] [place] [address] Dr. Ramses Dumas UR MICRO IND INDICATED Normal [facility] Comment on above: Performed By: #### C MP #### [facility] [address] [place], [place] [id number] Dr. Ramses Dumas Urobilinogen Qn (U) 4 {Lucero'U}/dL Abnormal 0.2 - 1.0 [facility] Comment on above: Performed By: #### C MP #### [facility] [address] [place] [address] Dr. Ramses Dumas LIPASEon 02-16-2023 Lipase [Catalytic activity/Vol] 67.0 U/L Critically low 73.0-393.0 [facility] Comment on above: Performed By: #### U RCX #### [facility] [address] [place] [address] Dr. Ramses Dumas LIVER PROFILEon 02-16-2023 Albumin [Mass/Vol] 4.1 g/dL Normal 3.4-5.0 [facility] Comment on above: Performed By: #### U RCX #### [facility] [address] [place] [address] Dr. Ramses Dumas Albumin/Globulin [Mass ratio] 1.0 {ratio} Normal [facility] Comment on above: Performed By: #### U RCX #### [facility] [address] [place] [address] Dr. Ramses Dumas ALP [Catalytic activity/Vol] 85 U/L Normal 46-116 [facility] Comment on above: Performed By: #### U RCX #### [facility] [address] [place] [address] Dr. Ramses Dumas ALT [Catalytic activity/Vol] 61 U/L Critically high 14-59 [facility] Comment on above: Performed By: #### U RCX #### [facility] [address] [place] [address] Dr. Ramses Dumas AST [Catalytic activity/Vol] 43 U/L Critically high 15-37 [facility] Comment on above: Performed By: #### U RCX #### [facility] [address] [place] [address] Dr. Ramses Dumas BILI, CONJUGATED 0.1 mg/dL Normal 0.0-0.2 [facility] Comment on above: Performed By: #### U RCX #### [facility] [address] [address] [address] Ramses Dumas Bilirubin [Mass/Vol] 0.7 mg/dL Normal 0.2-1.0 [facility] Comment on above: Performed By: #### U RCX #### [facility] [address] [address] [address] Ramses Dumas Globulin (S) [Mass/Vol] 4.2 g/dL Normal [facility] Comment on above: Performed By: #### U RCX #### [facility] [address] [address] [address] Ramses Dumas Protein [Mass/Vol] 8.3 g/dL Critically high 6.4-8.2 [facility] Comment on above: Performed By: #### U RCX #### [facility] [address] [place] [address] Dr. Ramses Dumas URon 02-16-2023 , QUAL Negative Normal NEGATIVE [facility] Comment on above: Performed By: #### C MP #### [facility] [address] [address] [address] Ramses Dumas PROF CHEM 8 (BAS METB)on Anion gap [Moles/Vol] 14.2 mmol/L Normal [facility] Comment on above: Performed By: #### U RCX #### [facility] [address] [address] [address] Ramses Dumas Calcium [Mass/Vol] 9.5 mg/dL Normal 8.5-10.1 [facility] Comment on above: Performed By: #### U RCX #### [facility] [address] [address] [address] Ramses Dumas Chloride [Moles/Vol] 102 mmol/L Normal 98-107 [facility] Comment on above: Performed By: #### U RCX #### [facility] [address] [address] [address] Ramses Dumas CO2 [Moles/Vol] 27.5 mmol/L Normal 21.0-32.0 [facility] Comment on above: Performed By: #### U RCX #### [facility] [address] [address] [address] Ramses Dumas Creatinine [Mass/Vol] 0.71 mg/dL Normal 0.55-1.02 [facility] Comment on above: Performed By: #### U RCX #### [facility] [address] [address] [address] Ramses Dumas EGFR-AF CITIZEN [place] >60 Normal >=60 [facility] Comment on above: Performed By: #### U RCX #### [facility] [address] [address] [address] Ramses Dumas EGFR-NON AF CITIZEN OF [place] >60 Normal >=60 [facility] Comment on above: Performed By: #### U RCX #### [facility] [address] [address] [address] Ramses Dumas Glucose [Mass/Vol] 90 mg/dL Normal 74-106 [facility] Comment on above: Performed By: #### U RCX #### [facility] [address] [address] [address] Ramses Dumas Potassium [Moles/Vol] 3.7 mmol/L Normal 3.5-5.1 [facility] Comment on above: Performed By: #### U RCX #### [facility] [address] [address] [address] Ramses Dumas Sodium [Moles/Vol] 140 mmol/L Normal 136-145 [facility] Comment on above: Performed By: #### U RCX #### [facility] [address] [address] [address] Ramses Dumas Urea nitrogen [Mass/Vol] 6.0 mg/dL Critically low 7.0-18.0 [facility] Comment on above: Performed By: #### U RCX #### [facility] [address] [address] [address] Ramses Dumas Urea nitrogen/Creatinine [Mass ratio] 8.5 mg/mg Normal [facility] Comment on above: Performed By: #### U RCX #### [facility] [address] [place] [address] Dr. Ramses Dumas URINE MICROSCOPIC ONLYon BACTERIA NONE SEEN Normal NONE SEEN [facility] Comment on above: Performed By: #### U KJ 24 #### [facility] [address] [place] [address] Dr. Ramses Dumas Bacteria identified Cx Nom (U) NOT INDICATED Normal [facility] Comment on above: Performed By: #### U KJ 24 #### [facility] [address] [place] [address] Dr. Ramses Dumas CAST NONE SEEN Normal NONE SEEN [facility] Comment on above: Performed By: #### U KJ 24 #### [facility] [address] [place] [address] Dr. Ramses Dumas Crystals LM Nom (Urine sed) NONE SEEN Normal NONE SEEN [facility] Comment on above: Performed By: #### U KJ 24 #### [facility] [address] [place] [address] Dr. Ramses Dumas Epithelial cells LM Ql (Urine sed) FEW Abnormal NONE SEEN /RARE [facility] Comment on above: Performed By: #### U KJ 24 #### [facility] [address] [place] [address] Dr. Ramses Dumas MUCOUS SMALL Abnormal NONE SEEN [facility] Comment on above: Performed By: #### U KJ 24 #### [facility] [address] [place] [address] Dr. Ramses Dumas RBC NONE SEEN Abnormal 0-2 [facility] Comment on above: Performed By: #### U KJ 24 #### [facility] [address] [place] [address] Dr. Ramses Dumas WBC 0-2 Abnormal NONE SEEN [facility] Comment on above: Performed By: #### U KJ 24 #### [facility] [address] [place] [address] Dr. Ramses Dumas PAP ACOG PANEL 2: 30 to 65on 02-10-2023 . . Normal [facility] Comment on above: Result Comment: Perf ormed at: WB Performed By: #### U RCX #### [facility] [address] [address] [address] Ramses Dumas Age Gdln ACOG Testing 30-65 Normal [facility] Comment on above: Performed By: #### U RCX #### [facility] [address] [address] [address] Ramses Dumas DIAGNOSIS: Comment Normal [facility] Comment on above: Result Comment: NEGA TIVE FOR INTRAEPITHELIAL LESION OR MALIGNANCY. REACTIVE CELLULAR CHANGES AND/OR REPAIR ARE PRESENT. Performed at: WB Performed By: #### U RCX #### [facility] [address] [address] [address] Ramses Dumas Electronically signed by: Comment Normal [facility] Comment on above: Result Comment: Chelsey Boston MD, Pathologist Performed at: WB Performed By: #### U RCX #### [facility] [address] [place] [address] Dr. Ramses Dumas HPV Aptima Negative Normal Negative [facility] Comment on above: Result Comment: This nucleic acid amplification test detects fourteen high-risk HPV types (16,18,31,33,35,39,45,51,52,56,58,59,66,68) without differentiation. Performed at: =G Performed By: #### U RCX #### [facility] [address] [place] [address] Dr. Ramses Dumas HPV Genotype Reflex Comment Normal [facility] Comment on above: Result Comment: Crit eria not met, HPV Genotype not performed. Performed at: WB Performed By: #### U RCX #### [facility] [address] [place] [address] Dr. Ramses Dumas Methodology: Comment Normal [facility] Comment on above: Result Comment: This liquid based ThinPrep(R) pap test was screened with the use of an image guided system. Performed at: WB Performed By: #### U RCX #### [facility] [address] [place] [address] Dr. Ramses Dumas Note: Comment Normal [facility] Comment on above: Result Comment: The [...] WB Performed By: #### U RCX #### [facility] [address] [place] [address] Dr. Ramses Dumas Performed by: Comment Normal [facility] Comment on above: Result Comment: Cuca Briceno, Network Operations Technician (ASCP) Performed at: WB Performed By: #### U RCX #### [facility] [address] [place] [address] Dr. Ramses Dumas Specimen adequacy: Comment Normal [facility] [facility] Comment on above: Result Comment: Sati sfactory for evaluation. Endocervical and/or squamous metaplastic cells (endocervical component) are present. Performed at: WB Performed By: #### U RCX #### [facility] [address] [place] [address] Dr. Ramses Dumas Lab Reportson 12-29-2022 Lab Reports [id number] .[id number]:127 Normal [facility] RAD - MISCon 12-21-2022 RAD - MISC [id number]:127 Normal [facility] OXALATE 24HR URINEon 023 Oxalates, Urine 44 mg/L Normal Undefined [facility] Comment on above: Performed By: #### U KJ 24 #### [facility] [address] [place] [address] Dr. Ramses Dumas Oxalates, Urine 24hr 44 mg/24 hr Critically high 4-31 [facility] Comment on above: Performed By: #### U KJ 24 #### [facility] [address] [place] [address] Dr. Ramses Dumas CITRATE URINE 24HRon 023 Citric Acid, U, 24hr 658 mg/24 hr Normal 320-1240 [facility] Comment on above: Result Comment: This test was developed and its performance characteristics determined by [employer]. It has not been cleared or approved by the Food and Drug Administration. Performed By: #### C ITRATU #### [facility] [address] [place] [address] Dr. Ramses Dumas Citric Acid, Urine 658 mg/L Normal Undefined [facility] Comment on above: Performed By: #### C ITRATU #### [facility] [address] [place] [address] Dr. Ramess Dumas MAGNESIUM 24HR URINEon 12-17 Magnesium 24hr Urine 119.0 mg/24 hr Normal 12.0-293.0 [facility] Comment on above: Performed By: #### U RCX #### [facility] [address] [place] [address] Dr. Ramses Dumas Magnesium UR 11.9 mg/dL Normal Not Estab. [facility] Comment on above: Performed By: #### U RCX #### [facility] [address] [place] [address] Dr. Ramses Dumas PHOSPHORUS 24HR URINEon Phosphorus, Urine 81.4 mg/dL Normal Not Estab. [facility] Comment on above: Performed By: #### B LDCX2 #### [facility] [address] [place] [address] Dr. Ramses Dumas Phosphorus, Urine 24hr 814 mg/24 hr Normal 261-1078 [facility] Comment on above: Performed By: #### B LDCX2 #### [facility] [address] [place] [address] Dr. Ramses Dumas PTH INTACTon 12-17-2022 PTH, Intact 46 pg/mL Normal 15-65 [facility] Comment on above: Performed By: #### U RCX #### [facility] [address] [place] [address] Dr. Ramses Dumas URIC ACID 24 HR URINEon Uric Acid, Urine 69.9 mg/dL Normal Not Estab. [facility] Comment on above: Performed By: #### U KJ 24 #### [facility] [address] [place] [address] Dr. Ramses Dumas Uric Acid, Urine 24hr 699.0 mg/24 hr Normal 173.7-902. 1 [facility] Comment on above: Performed By: #### U KJ 24 #### [facility] [address] [place] [address] Dr. Ramses Dumas BUNon 12-16-2022 Urea nitrogen [Mass/Vol] 7.0 mg/dL Normal 7.0-18.0 [facility] Comment on above: Performed By: #### C BC #### [facility] [address] [place] [address] Dr. Ramses Dumas CALCIUMon 12-16-2022 Calcium [Mass/Vol] 8.8 mg/dL Normal 8.5-10.1 [facility] Comment on above: Performed By: #### C BC #### [facility] [address] [place] [address] Dr. Ramses Dumas CALCIUM 24 HR URINEon 2022 CALC, 24 HR UR 295.0 mg/24 hr Normal 100.0-300.0 [facility] Comment on above: Performed By: #### B LDCX2 #### [facility] [address] [place] [address] Dr. Ramses Dumas UR CALCIUM 29.5 mg/dL Critically high 5.1-21.0 [facility] Comment on above: Performed By: #### B LDCX2 #### [facility] [address] [place] [address] Dr. Ramses Dumas CHLORIDEon 12-16-2022 Chloride [Moles/Vol] 105 mmol/L Normal 98-107 [facility] Comment on above: Performed By: #### C BC #### [facility] [address] [place] [address] Dr. Ramses Dumas CO2on 12-16-2022 CO2 [Moles/Vol] 26.4 mmol/L Normal 21.0-32.0 [facility] Comment on above: Performed By: #### C MP #### [facility] [address] [place] [address] Dr. Ramses Dumas CREA 24 HR URINEon 3 CREA, 24 HR UR 2337.30 mg/24 hr Critically high 800.00 -1,800 .00 [facility] Comment on above: Performed By: #### C VDTBH #### [facility] [address] [place] [address] Dr. Ramses Dumas URINE CREAT 233.73 mg/dL Normal 20.00-300.00 [facility] Comment on above: Performed By: #### C VDTBH #### [facility] [address] [address] [address] Ramses Dumas CREATININEon 12-16-2022 Creatinine [Mass/Vol] 0.70 mg/dL Normal 0.55-1.02 [facility] Comment on above: Performed By: #### C MP #### [facility] [address] [place] [address] Dr. Ramses Dumas EGFR-AF CITIZEN [place] >60 Normal >=60 [facility] Comment on above: Performed By: #### C MP #### [facility] [address] [place] [address] Dr. Ramses Dumas EGFR-NON AF CITIZEN OF [place] >60 Normal >=60 [facility] Comment on above: Performed By: #### C MP #### [facility] [address] [place] [address] Dr. Ramses Dumas NAon 12-16-2022 Sodium [Moles/Vol] 139 mmol/L Normal 136-145 [facility] Comment on above: Performed By: #### C MP #### [facility] [address] [place] [address] Dr. Ramses Dumas POTASSIUMon 12-16-2022 Potassium [Moles/Vol] 4.0 mmol/L Normal 3.5-5.1 [facility] Comment on above: Performed By: #### C MP #### [facility] [address] [place] [address] Dr. Ramses Dumas SODIUM 24 HR URINEon 12-16- 023 NA, 24 HR UR 193 mmol/24 hr Normal 40-220 [facility] Comment on above: Performed By: #### C VDTBH #### [facility] [address] [place] [address] Dr. Ramses Dumas Sodium (U) [Moles/Vol] 193 mmol/L Critically high 30-90 [facility] Comment on above: Performed By: #### C VDTBH #### [facility] [address] [place] [address] Dr. Ramses Dumas UR TOT VOL 1000 ml/24 HR Normal [facility] Comment on above: Performed By: #### C VDTBH #### [facility] [address] [place] [address] Dr. Ramses Dumas Performed By: #### B LDCX2 #### [facility] [address] [place] [address] Dr. Ramses Dumas URIC ACID SERUMon 12-16-2022 Urate [Mass/Vol] 5.6 mg/dL Normal 2.6-6.0 [facility] Comment on above: Performed By: #### C MP #### [facility] [address] [place] [address] Dr. Ramess Dumas XR KUB 1 VIEWon 12-15-2022 XR [...] JENNIFER GATES Date: 2022-12-15 08:26 Normal [facility] CBC AUTO DIFFon 11-07-2022 BASO # 0.0 103/ul Normal 0.0-0.1 [facility] Comment on above: Performed By: #### U RCX #### [facility] [address] [place] [address] Dr. Ramses Dumas Basophils/100 WBC (Bld) 0.7 % Normal 0.2-2.0 [facility] Comment on above: Performed By: #### U RCX #### [facility] [address] [place] [address] Dr. Ramses Dumas EO # 0.1 103/ul Normal 0.0-0.7 [facility] Comment on above: Performed By: #### U RCX #### [facility] [address] [place] [address] Dr. Ramses Dumas Eosinophils/100 WBC (Bld) 1.9 % Normal 0.9-7.0 [facility] Comment on above: Performed By: #### U RCX #### [facility] [address] [place] [address] Dr. Ramses Dumas Erythrocyte distribution width (RBC) [Ratio] 13.6 % Normal 11.0-15.0 [facility] Comment on above: Performed By: #### U RCX #### [facility] [address] [place] [address] Dr. Ramses Dumas Hematocrit (Bld) [Volume fraction] 37.3 % Normal 36.0-48.0 [facility] Comment on above: Performed By: #### U RCX #### [facility] [address] [place] [address] Dr. Ramses Dumas Hemoglobin (Bld) [Mass/Vol] 12.2 g/dL Normal 12.0-16.0 [facility] Comment on above: Performed By: #### U RCX #### [facility] [address] [place] [address] Dr. Ramses Dumas IG # 0.02 10e3/ul Normal 0.00-0.03 [facility] Comment on above: Performed By: #### U RCX #### [facility] [address] [place] [address] Dr. Ramses Dumas IG % 0.3 % Normal 0.0-0.5 [facility] Comment on above: Performed By: #### U RCX #### [facility] [address] [place] [address] Dr. Ramses Dumas LYMPH # 2.3 103/ul Normal 1.2-3.8 [facility] Comment on above: Performed By: #### U RCX #### [facility] [address] [place] [address] Dr. Ramses Dumas Lymphocytes/100 WBC (Bld) 39.6 % Normal 20.5-60.0 [facility] Comment on above: Performed By: #### U RCX #### [facility] [address] [place] [address] Dr. Ramses Dumas MANUAL DIFF REQ NO Normal [facility] Comment on above: Performed By: #### U RCX #### [facility] [address] [place] [address] Dr. Ramses Dumas MCH (RBC) [Entitic mass] 26.4 pg Critically low 26.7-34.0 [facility] Comment on above: Performed By: #### U RCX #### [facility] [address] [place] [address] Dr. Ramses Dumas MCHC (RBC) [Mass/Vol] 32.7 g/dL Normal 29.9-35.2 [facility] Comment on above: Performed By: #### U RCX #### [facility] [address] [place] [address] Dr. Ramses Dumas MCV (RBC) [Entitic vol] 80.7 fL Critically low 81.0-99.0 [facility] Comment on above: Performed By: #### U RCX #### [facility] [address] [place] [address] Dr. Ramses Dumas MONO # 0.5 103/ul Normal 0.3-0.8 [facility] Comment on above: Performed By: #### U RCX #### [facility] [address] [place] [address] Dr. Ramses Dumas Monocytes/100 WBC (Bld) 8.0 % Normal 1.7-12.0 [facility] Comment on above: Performed By: #### U RCX #### [facility] [address] [place] [address] Dr. Ramses Dumas NEUT # 2.9 103/ul Normal 1.4-6.5 [facility] Comment on above: Performed By: #### U RCX #### [facility] [address] [place] [address] Dr. Ramses Dumas Neutrophils/100 WBC (Bld) 49.5 % Normal 43.0-75.0 [facility] Comment on above: Performed By: #### U RCX #### [facility] [address] [place] [address] Dr. Ramses Dumas Platelet mean volume (Bld) [Entitic vol] 9.0 fL Critically low 9.5-13.5 [facility] Comment on above: Performed By: #### U RCX #### [facility] [address] [place] [address] Dr. Ramses Dumas PLT 337 103/ul Normal 150-450 [facility] Comment on above: Performed By: #### U RCX #### [facility] [address] [place] [address] Dr. Ramses Dumas RBC 4.62 106/ul Normal 4.20-5.40 [facility] Comment on above: Performed By: #### U RCX #### [facility] [address] [place] [address] Dr. Ramses Dumas WBC 5.9 103/ul Normal 4.0-11.0 [facility] Comment on above: Performed By: #### U RCX #### [facility] [address] [place] [address] Dr. Ramses Dumas POINT OF CARE GLUCOSEon 10-20 Glucose [Mass/Vol] 115 mg/dL Critically high 74-106 [facility] Comment on above: Performed By: #### C VDTBH #### [facility] [address] [place] [address] Dr. Ramses Dumas PREG QUANT HCGon 11-07-2022 HCG QUANT <1 Normal [facility] Comment on above: Performed By: #### C VDTBH #### [facility] [address] [place] [address] Dr. Ramses Dumas HCG RANGE SEE BELOW Normal [facility] Comment on above: Result Comment: 5-50 0.2-1 WEEK 50-500 1-2 WEEKS 100-5,000 2-3 WEEKS 500-10,000 3-4 WEEKS 1,000-50,000 4-5 WEEKS 10,000-100,000 5-6 WEEKS 15,000-200,000 6-8 WEEKS 10,000-100,000 2-3 MONTHS Performed By: #### C [facility] #### [facility] [address] [address] [address] Ramses Dumas US PELVIS AND TRANSVAGon [...] cm right ovarian simple cyst Normal [facility] CBC AUTO DIFFon 11-03-2022 BASO # 0.1 103/ul Normal 0.0-0.1 [facility] Comment on above: Performed By: #### U RCX #### [facility] [address] [address] [address] Ramses Dumas Basophils/100 WBC (Bld) 0.8 % Normal 0.2-2.0 [facility] Comment on above: Performed By: #### U RCX #### [facility] [address] [address] [address] Ramses Dumas EO # 0.1 103/ul Normal 0.0-0.7 [facility] Comment on above: Performed By: #### U RCX #### [facility] [address] [place] [address] Dr. Ramses Dumas Eosinophils/100 WBC (Bld) 1.4 % Normal 0.9-7.0 [facility] Comment on above: Performed By: #### U RCX #### [facility] [address] [place] [address] Dr. Ramses Dumas Erythrocyte distribution width (RBC) [Ratio] 13.4 % Normal 11.0-15.0 [facility] Comment on above: Performed By: #### U RCX #### [facility] [address] [place] [address] Dr. Ramses Dumas Hematocrit (Bld) [Volume fraction] 38.8 % Normal 36.0-48.0 [facility] Comment on above: Performed By: #### U RCX #### [facility] [address] [place] [address] Dr. Ramses Dumas Hemoglobin (Bld) [Mass/Vol] 12.7 g/dL Normal 12.0-16.0 [facility] Comment on above: Performed By: #### U RCX #### [facility] [address] [place] [address] Dr. Ramses Dumas IG # 0.01 10e3/ul Normal 0.00-0.03 [facility] Comment on above: Performed By: #### U RCX #### [facility] [address] [place] [address] Dr. Ramses Dumas IG % 0.1 % Normal 0.0-0.5 [facility] Comment on above: Performed By: #### U RCX #### [facility] [address] [place] [address] Dr. Ramses Dumas LYMPH # 1.9 103/ul Normal 1.2-3.8 [facility] Comment on above: Performed By: #### U RCX #### [facility] [address] [place] [address] Dr. Ramses Dumas Lymphocytes/100 WBC (Bld) 26.4 % Normal 20.5-60.0 [facility] Comment on above: Performed By: #### U RCX #### [facility] [address] [place] [address] Dr. Ramses Dumas MANUAL DIFF REQ NO Normal [facility] Comment on above: Performed By: #### U RCX #### [facility] [address] [place] [address] Dr. Ramses Dumas MCH (RBC) [Entitic mass] 26.3 pg Critically low 26.7-34.0 [facility] Comment on above: Performed By: #### U RCX #### [facility] [address] [place] [address] Dr. Ramses Dumas MCHC (RBC) [Mass/Vol] 32.7 g/dL Normal 29.9-35.2 [facility] Comment on above: Performed By: #### U RCX #### [facility] [address] [place] [address] Dr. Ramses Dumas MCV (RBC) [Entitic vol] 80.5 fL Critically low 81.0-99.0 [facility] Comment on above: Performed By: #### U RCX #### [facility] [address] [place] [address] Dr. Ramses Dumas MONO # 0.6 103/ul Normal 0.3-0.8 [facility] Comment on above: Performed By: #### U RCX #### [facility] [address] [place] [address] Dr. Ramses Dumas Monocytes/100 WBC (Bld) 8.2 % Normal 1.7-12.0 [facility] Comment on above: Performed By: #### U RCX #### [facility] [address] [place] [address] Dr. Ramses Dumas NEUT # 4.5 103/ul Normal 1.4-6.5 [facility] Comment on above: Performed By: #### U RCX #### [facility] [address] [place] [address] Dr. Ramses Dumas Neutrophils/100 WBC (Bld) 63.1 % Normal 43.0-75.0 [facility] Comment on above: Performed By: #### U RCX #### [facility] [address] [place] [address] Dr. Ramses Dumas Platelet mean volume (Bld) [Entitic vol] 8.9 fL Critically low 9.5-13.5 [facility] Comment on above: Performed By: #### U RCX #### [facility] [address] [place] [address] Dr. Ramses Dumas PLT 340 103/ul Normal 150-450 [facility] Comment on above: Performed By: #### U RCX #### [facility] [address] [place] [address] Dr. Ramses Dumas RBC 4.82 106/ul Normal 4.20-5.40 [facility] Comment on above: Performed By: #### U RCX #### [facility] [address] [place] [address] Dr. Ramses Dumas WBC 7.1 103/ul Normal 4.0-11.0 [facility] Comment on above: Performed By: #### U RCX #### [facility] [address] [place] [address] Dr. Ramses Dumas [facility]19 [facility]on [facility]-19 SARS-CoV-2 (COVID-19) RNA FRANCESCA+probe Ql (Unsp spec) Not detected Normal NOT DETECTED [facility] Comment on above: Result Comment: This test is not yet approved or cleared by the [place] FDA. When there are no FDA-approved or cleared tests available, and other criteria are met, FDA can make tests available under an emergency access mechanism called an Emergency Use Authorization (EUA). The EUA for this test is supported by the [place] of Health and Human Service's (HHS's) declaration [...] SARS-CoV-2. Performed By: #### U RCX #### [facility] [address] [place] [address] Dr. Ramses Dumas FREE T4on 11-03-2022 Free T4 [Mass/Vol] 0.99 ng/dL Normal 0.76-1.46 [facility] Comment on above: Performed By: #### B LDCX2 #### [facility] [address] [place] [address] Dr. Ramses Dumas GLYCOHEMOGLOBIN A1Con 2022 ADA RECOMMENDATION SEE BELOW Normal [facility] Comment on above: Result Comment: ADA RECOMMENDED LIMIT 4.0 - 6.0 ADA THERAPEUTIC TARGET < 7.0 ACTION SUGGESTED > 7.0 Performed By: #### C VDTBH #### [facility] [address] [place] [address] Dr. Ramses Dumas Glucose [Mass/Vol] 117 mg/dL Normal [facility] Comment on above: Performed By: #### C VDTBH #### [facility] [address] [place] [address] Dr. Ramses Dumas HbA1c (Bld) [Mass fraction] 5.7 % Normal 4.5-6.2 [facility] Comment on above: Performed By: #### C VDTBH #### [facility] [address] [place] [address] Dr. Ramses Dumas PROTIMEon 11-03-2022 INR Coag (PPP) [Relative time] 0.97 {INR} Normal [facility] Comment on above: Performed By: #### U KJ 24 #### [facility] [address] [place] [address] Dr. Ramses Dumas INR GUIDELINES SEE BELOW Normal [facility] Comment on above: Result Comment: TOÑA RED INR: 2.0 - 3.0 CONDITIONS NOT LISTED BELOW 2.5 - 3.5 FOR PROSTHETIC HEART VALVE REPLACEMENT 2.5 - 3.5 RECURRENT THROMBOSIS Performed By: #### U KJ 24 #### [facility] [address] [place] [address] Dr. Ramses Dumas PT Coag (PPP) [Time] 10.3 s Normal 9.0-11.6 [facility] Comment on above: Performed By: #### U KJ 24 #### [facility] [address] [place] [address] Dr. Ramses Dumas PTTon 11-03-2022 aPTT Coag (Bld) [Time] 27.7 s Normal 22.3-36.2 [facility] Comment on above: Performed By: #### U KJ 24 #### [facility] [address] [place] [address] Dr. Ramses Dumas TSHon 11-03-2022 TSH 0.667 uIU/mL Normal 0.358-3.740 [facility] Comment on above: Performed By: #### C VDTBH #### [facility] [address] [place] [address] Dr. Ramses Dumas PREG HCG QUALon 09-18-2022 , QUAL Negative Normal NEGATIVE [facility] Comment on above: Performed By: #### U KJ 24 #### [facility] [address] [place] [address] Dr. Ramses Dumas Covid-19 PCR ([facility])on 08-20 SARS-CoV-2 (COVID-19) RNA FRANCESCA+probe Ql (Unsp spec) Not detected Normal NOT DETECTED [facility] Comment on above: Result Comment: This test is not yet approved or cleared by the [place] FDA. When there are no FDA-approved or cleared tests available, and other criteria are met, FDA can make tests available under an emergency access mechanism called an Emergency Use Authorization (EUA). The EUA for this test is supported by the [place] of Health and Human Service's (HHS's) declaration [...] SARS-CoV-2. Performed By: #### C VDTBH #### [facility] [address] [place] [address] Dr. Ramses Dumas CBC AUTO DIFFon 09-05-2022 BASO # 0.1 103/ul Normal 0.0-0.1 [facility] Comment on above: Performed By: #### B LDCX2 #### [facility] [address] [place] [address] Dr. Ramses Dumas Basophils/100 WBC (Bld) 0.7 % Normal 0.2-2.0 [facility] Comment on above: Performed By: #### B LDCX2 #### [facility] [address] [place] [address] Dr. Ramses Dumas EO # 0.2 103/ul Normal 0.0-0.7 [facility] Comment on above: Performed By: #### B LDCX2 #### [facility] [address] [place] [address] Dr. Ramsse Dumas Eosinophils/100 WBC (Bld) 2.2 % Normal 0.9-7.0 [facility] Comment on above: Performed By: #### B LDCX2 #### [facility] [address] [place] [address] Dr. Ramses Dumas Erythrocyte distribution width (RBC) [Ratio] 13.9 % Normal 11.0-15.0 [facility] Comment on above: Performed By: #### B LDCX2 #### [facility] [address] [place] [address] Dr. Ramses Dumas Hematocrit (Bld) [Volume fraction] 38.8 % Normal 36.0-48.0 [facility] Comment on above: Performed By: #### B LDCX2 #### [facility] [address] [place] [address] Dr. Ramses Dumas Hemoglobin (Bld) [Mass/Vol] 12.6 g/dL Normal 12.0-16.0 [facility] [facility] Comment on above: Performed By: #### B LDCX2 #### [facility] [address] [place] [address] Dr. Ramses Dumas IG # 0.03 10e3/ul Normal 0.00-0.03 [facility] Comment on above: Performed By: #### B LDCX2 #### [facility] [address] [place] [address] Dr. Ramses Dumas IG % 0.3 % Normal 0.0-0.5 [facility] Comment on above: Performed By: #### B [id number] #### [facility] [address] [place] [address] Dr. Ramses Dumas LYMPH # 2.3 103/ul Normal 1.2-3.8 [facility] Comment on above: Performed By: #### B LDCX2 #### [facility] [address] [place] [address] Dr. Ramses Dumas Lymphocytes/100 WBC (Bld) 21.3 % Normal 20.5-60.0 [facility] Comment on above: Performed By: #### B LDCX2 #### [facility] [address] [place] [address] Dr. Ramses Dumas MANUAL DIFF REQ NO Normal [facility] Comment on above: Performed By: #### B LDCX2 #### [facility] [address] [place] [address] Dr. Ramses Dumas MCH (RBC) [Entitic mass] 26.4 pg Critically low 26.7-34.0 [facility] Comment on above: Performed By: #### B LDCX2 #### [facility] [address] [place] [address] Dr. Ramses Dumas MCHC (RBC) [Mass/Vol] 32.5 g/dL Normal 29.9-35.2 [facility] Comment on above: Performed By: #### B LDCX2 #### [facility] [address] [place] [address] Dr. Ramses Dumas MCV (RBC) [Entitic vol] 81.2 fL Normal 81.0-99.0 [facility] Comment on above: Performed By: #### B LDCX2 #### [facility] [address] [place] [address] Dr. Ramses Dumas MONO # 0.8 103/ul Normal 0.3-0.8 [facility] Comment on above: Performed By: #### B LDCX2 #### [facility] [address] [place] [address] Dr. Ramses Dumas Monocytes/100 WBC (Bld) 7.4 % Normal 1.7-12.0 [facility] Comment on above: Performed By: #### B LDCX2 #### [facility] [address] [place] [address] Dr. Ramses Dumas NEUT # 7.3 103/ul Critically high 1.4-6.5 [facility] Comment on above: Performed By: #### B LDCX2 #### [facility] [address] [place] [address] Dr. Ramses Dumas Neutrophils/100 WBC (Bld) 68.1 % Normal 43.0-75.0 [facility] Comment on above: Performed By: #### B LDCX2 #### [facility] [address] [place] [address] Dr. Ramses Dumas Platelet mean volume (Bld) [Entitic vol] 8.8 fL Critically low 9.5-13.5 [facility] Comment on above: Performed By: #### B LDCX2 #### [facility] [address] [place] [address] Dr. Ramses Dumas PLT 323 103/ul Normal 150-450 [facility] Comment on above: Performed By: #### B LDCX2 #### [facility] [address] [place] [address] Dr. Ramses Dumas RBC 4.78 106/ul Normal 4.20-5.40 [facility] Comment on above: Performed By: #### B LDCX2 #### [facility] [address] [place] [address] Dr. Ramses Dumas WBC 10.7 103/ul Normal 4.0-11.0 [facility] Comment on above: Performed By: #### B LDCX2 #### [facility] [address] [place] [address] Dr. Ramses Dumas CULTURE URINEon 09-05-2022 CULTURE URINE Culture Observations : LIGHT GROWTH OF MIXED GENITAL DAIANA. NO POTENTIAL PATHOGENS SEEN. Normal [facility] Comment on above: Performed By: #### U RCX #### [facility] [address] [place] [address] Dr. Ramses Dumas ER URINE PROFILEon Bilirubin Ql (U) Negative Normal NEGATIVE [facility] Comment on above: Performed By: #### B [id number] #### [facility] [address] [place] [address] Dr. Ramses Dumas Clarity (U) CLOUDY Abnormal CLEAR [facility] Comment on above: Performed By: #### B LDCX2 #### [facility] [address] [place] [address] Dr. Ramses Dumas Color (U) YELLOW Normal YELLOW [facility] Comment on above: Performed By: #### B LDCX2 #### [facility] [address] [place] [address] Dr. Ramses Dumas ERUCARLOS ENRIQUE A micrscopic examination will be performed if indicated. Normal [facility] Comment on above: Performed By: #### B LDCX2 #### [facility] [address] [place] [address] Dr. Ramses Dumas Glucose Ql (U) Negative Normal NEGATIVE [facility] Comment on above: Performed By: #### B LDCX2 #### [facility] [address] [place] [address] Dr. Ramses Dumas Hemoglobin Ql (U) LARGE Abnormal NEGATIVE [facility] Comment on above: Performed By: #### B LDCX2 #### [facility] [address] [place] [address] Dr. Ramses Dumas Ketones Ql (U) Negative Normal NEGATIVE [facility] Comment on above: Performed By: #### B LDCX2 #### [facility] [address] [place] [address] Dr. Ramses Dumas LEUKOCYTES SMALL Abnormal NEGATIVE [facility] Comment on above: Performed By: #### B LDCX2 #### [facility] [address] [place] [address] Dr. Ramses Dumas Nitrite Ql (U) Negative Normal NEGATIVE [facility] Comment on above: Performed By: #### B LDCX2 #### [facility] [address] [place] [address] Dr. Ramses Dumas pH (U) 6.0 [pH] Normal 5-9 [facility] Comment on above: Performed By: #### B LDCX2 #### [facility] [address] [place] [address] Dr. Ramses Dumas Protein (U) [Mass/Vol] 100 mg/dL Abnormal NEGAT CHRIS/ TRACE [facility] Comment on above: Performed By: #### B LDCX2 #### [facility] [address] [place] [address] Dr. Ramses Dumas SPEC GRAVITY >=1.030 Abnormal 1.005-<=1.02 5 [facility] Comment on above: Performed By: #### B LDCX2 #### [facility] [address] [place] [address] Dr. Ramses Dumas UR MICRO IND INDICATED Normal [facility] Comment on above: Performed By: #### B LDCX2 #### [facility] [address] [place] [address] Dr. Ramses Dumas Urobilinogen Qn (U) 0.2 {Lucero'U}/dL Normal 0.2 - 1. 0 [facility] Comment on above: Performed By: #### B LDCX2 #### [facility] [address] [place] [address] Dr. Ramses Dumas URon 09-05-2022 , QUAL Negative Normal NEGATIVE [facility] Comment on above: Performed By: #### B LDCX2 #### [facility] [address] [place] [address] Dr. Ramses Dumas PROF CHEM 8 (BAS METB)on Anion gap [Moles/Vol] 11.7 mmol/L Normal [facility] Comment on above: Performed By: #### C MP #### [facility] [address] [address] [address] Ramses Dumas Calcium [Mass/Vol] 9.1 mg/dL Normal 8.5-10.1 [facility] Comment on above: Performed By: #### C MP #### [facility] [address] [address] [address] Ramses Dumas Chloride [Moles/Vol] 103 mmol/L Normal 98-107 [facility] Comment on above: Performed By: #### C MP #### [facility] [address] [place] [address] Dr. Ramses Dumas CO2 [Moles/Vol] 25.9 mmol/L Normal 21.0-32.0 [facility] Comment on above: Performed By: #### C MP #### [facility] [address] [place] [address] Dr. Ramses Dumas Creatinine [Mass/Vol] 0.77 mg/dL Normal 0.55-1.02 [facility] Comment on above: Performed By: #### C MP #### [facility] [address] [place] [address] Dr. Ramses Dumas EGFR-AF [place]IZ[place] >60 Normal >=60 [facility] Comment on above: Performed By: #### C MP #### [facility] [address] [address] [address] Ramses Dumas EGFR-NON AF CITIZ[place] >60 Normal >=60 [facility] Comment on above: Performed By: #### C MP #### [facility] [address] [address] [address] Ramses Dumas Glucose [Mass/Vol] 124 mg/dL Critically high 74-106 [facility] Comment on above: Performed By: #### C MP #### [facility] [address] [address] [address] Ramses Dumas Potassium [Moles/Vol] 3.6 mmol/L Normal 3.5-5.1 [facility] Comment on above: Performed By: #### C MP #### [facility] [address] [address] [address] Ramses Dumas Sodium [Moles/Vol] 137 mmol/L Normal 136-145 [facility] Comment on above: Performed By: #### C MP #### [facility] [address] [place] [address] Dr. Ramses Dumas Urea nitrogen [Mass/Vol] 12.0 mg/dL Normal 7.0-18.0 [facility] Comment on above: Performed By: #### C MP #### [facility] [address] [place] [address] Dr. Ramses Dumas Urea nitrogen/Creatinine [Mass ratio] 15.6 mg/mg Normal [facility] Comment on above: Performed By: #### C MP #### [facility] [address] [place] [address] Dr. Ramses Dumas URINE MICROSCOPIC ONLYon AMORPHOUS CRYSTALS RARE Normal [facility] Comment on above: Performed By: #### B LDCX2 #### [facility] [address] [place] [address] Dr. Ramses Dumas BACTERIA TRACE Abnormal NONE SEEN [facility] Comment on above: Performed By: #### B LDCX2 #### [facility] [address] [place] [address] Dr. Ramses Dumas Bacteria identified Cx Nom (U) INDICATED Normal [facility] Comment on above: Performed By: #### B LDCX2 #### [facility] [address] [place] [address] Dr. Ramses Dumas CA OX CRYSTALS RARE Normal [facility] Comment on above: Performed By: #### B LDCX2 #### [facility] [address] [place] [address] Dr. Ramses Dumas CAST NONE SEEN Normal NONE SEEN [facility] Comment on above: Performed By: #### B LDCX2 #### [facility] [address] [place] [address] Dr. Ramses Dumas Crystals LM Nom (Urine sed) SEEN Abnormal NONE SEEN [facility] Comment on above: Performed By: #### B LDCX2 #### [facility] [address] [place] [address] Dr. Ramses Dumas Epithelial cells LM Ql (Urine sed) FEW Abnormal NONE SEEN /RARE [facility] Comment on above: Performed By: #### B LDCX2 #### [facility] [address] [place] [address] Dr. Ramses Dumas MUCOUS TRACE Abnormal NONE SEEN [facility] Comment on above: Performed By: #### B LDCX2 #### [facility] [address] [place] [address] Dr. Ramses Dumas RBC 50-75 Abnormal 0-2 [facility] Comment on above: Performed By: #### B LDCX2 #### [facility] [address] [place] [address] Dr. Ramses Dumas WBC 20-50 Abnormal NONE SEEN [facility] Comment on above: Performed By: #### B LDCX2 #### [facility] [address] [place] [address] Dr. Ramses Dumas YEAST PRESENT Abnormal NONE SEEN [facility] Comment on above: Performed By: #### B LDCX2 #### [facility] [address] [place] [address] Dr. Ramses Dumas US KIDNEYSon 09-05-2022 US [...] GLEN GRAFF Date: 2022-09-05 11:00 Normal [facility] CT ABD/PELVIS WO CONon 08-29 CT ABD/PELVIS [...] ERICKA IGLESIAS Date: 2022-08-29 01:10 Normal [facility] CULTURE URINEon 08-29-2022 CULTURE URINE Culture Observations : LIGHT GROWTH OF MIXED GENITAL DAIANA. NO POTENTIAL PATHOGENS SEEN. Normal [facility] Comment on above: Performed By: #### U RCX #### [facility] [address] [place] [address] Dr. Ramses Dumas CBC AUTO DIFFon 08-28-2022 BASO # 0.1 103/ul Normal 0.0-0.1 [facility] Comment on above: Performed By: #### U RCX #### [facility] [address] [place] [address] Dr. Ramses Dumas Basophils/100 WBC (Bld) 0.5 % Normal 0.2-2.0 [facility] Comment on above: Performed By: #### U RCX #### [facility] [address] [place] [address] Dr. Ramses Dumas EO # 0.3 103/ul Normal 0.0-0.7 [facility] Comment on above: Performed By: #### U RCX #### [facility] [address] [place] [address] Dr. Ramses Dumas Eosinophils/100 WBC (Bld) 2.3 % Normal 0.9-7.0 [facility] Comment on above: Performed By: #### U RCX #### [facility] [address] [place] [address] Dr. Ramses Dumas Erythrocyte distribution width (RBC) [Ratio] 13.7 % Normal 11.0-15.0 [facility] Comment on above: Performed By: #### U RCX #### [facility] [address] [place] [address] Dr. Ramses Dumas Hematocrit (Bld) [Volume fraction] 36.7 % Normal 36.0-48.0 [facility] Comment on above: Performed By: #### U RCX #### [facility] [address] [place] [address] Dr. Ramses Dumas Hemoglobin (Bld) [Mass/Vol] 12.3 g/dL Normal 12.0-16.0 [facility] Comment on above: Performed By: #### U RCX #### [facility] [address] [place] [address] Dr. Ramses Dumas IG # 0.16 10e3/ul Critically high 0.00-0.03 [facility] Comment on above: Performed By: #### U RCX #### [facility] [address] [place] [address] Dr. Ramses Dumas IG % 1.1 % Critically high 0.0-0.5 [facility] Comment on above: Performed By: #### U RCX #### [facility] [address] [place] [address] Dr. Ramses Dumas LYMPH # 4.6 103/ul Critically high 1.2-3.8 [facility] Comment on above: Performed By: #### U RCX #### [facility] [address] [place] [address] Dr. Ramses Dumas Lymphocytes/100 WBC (Bld) 31.8 % Normal 20.5-60.0 [facility] Comment on above: Performed By: #### U RCX #### [facility] [address] [place] [address] Dr. Ramses Dumas MANUAL DIFF REQ NO Normal [facility] Comment on above: Performed By: #### U RCX #### [facility] [address] [place] [address] Dr. Ramses Dumas MCH (RBC) [Entitic mass] 26.9 pg Normal 26.7-34.0 [facility] Comment on above: Performed By: #### U RCX #### [facility] [address] [place] [address] Dr. Ramses Dumas MCHC (RBC) [Mass/Vol] 33.5 g/dL Normal 29.9-35.2 [facility] Comment on above: Performed By: #### U RCX #### [facility] [address] [place] [address] Dr. Ramses Dumas MCV (RBC) [Entitic vol] 80.3 fL Critically low 81.0-99.0 [facility] Comment on above: Performed By: #### U RCX #### [facility] [address] [place] [address] Dr. Ramses Dumas MONO # 1.0 103/ul Critically high 0.3-0.8 [facility] Comment on above: Performed By: #### U RCX #### [facility] [address] [place] [address] Dr. Ramses Dumas Monocytes/100 WBC (Bld) 7.0 % Normal 1.7-12.0 [facility] Comment on above: Performed By: #### U RCX #### [facility] [address] [place] [address] Dr. Ramses Dumas NEUT # 8.2 103/ul Critically high 1.4-6.5 [facility] Comment on above: Performed By: #### U RCX #### [facility] [address] [place] [address] Dr. Ramses Dumas Neutrophils/100 WBC (Bld) 57.3 % Normal 43.0-75.0 [facility] Comment on above: Performed By: #### U RCX #### [facility] [address] [place] [address] Dr. Ramses Dumas Platelet mean volume (Bld) [Entitic vol] 8.6 fL Critically low 9.5-13.5 [facility] Comment on above: Performed By: #### U RCX #### [facility] [address] [place] [address] Dr. Ramses Dumas PLT 395 103/ul Normal 150-450 [facility] Comment on above: Performed By: #### U RCX #### [facility] [address] [place] [address] Dr. Ramses Dumas RBC 4.57 106/ul Normal 4.20-5.40 [facility] Comment on above: Performed By: #### U RCX #### [facility] [address] [place] [address] Dr. Ramses Dumas WBC 14.3 103/ul Critically high 4.0-11.0 [facility] Comment on above: Performed By: #### U RCX #### [facility] [address] [place] [address] Dr. Ramses Dumas ER URINE PROFILEon 2 Bilirubin Ql (U) Negative Normal NEGATIVE [facility] Comment on above: Performed By: #### U KJ 24 #### [facility] [address] [place] [address] Dr. Ramses Dumas Clarity (U) CLEAR Normal CLEAR [facility] Comment on above: Performed By: #### U KJ 24 #### [facility] [address] [place] [address] Dr. Ramses Dumas Color (U) LT. YELLOW Normal YELLOW [facility] Comment on above: Performed By: #### U KJ 24 #### [facility] [address] [place] [address] Dr. Ramses Dumas ERUAHD A micrscopic examination will be performed if indicated. Normal [facility] Comment on above: Performed By: #### U KJ 24 #### [facility] [address] [place] [address] Dr. Ramses Dumas Glucose Ql (U) Negative Normal NEGATIVE [facility] Comment on above: Performed By: #### U KJ 24 #### [facility] [address] [place] [address] Dr. Ramses Dumas Hemoglobin Ql (U) LARGE Abnormal NEGATIVE [facility] Comment on above: Performed By: #### U KJ 24 #### [facility] [address] [place] [address] Dr. Ramses Dumas Ketones Ql (U) Negative Normal NEGATIVE [facility] Comment on above: Performed By: #### U KJ 24 #### [facility] [address] [place] [address] Dr. Ramses Dumas LEUKOCYTES MODERATE Abnormal NEGATIVE [facility] Comment on above: Performed By: #### U KJ 24 #### [facility] [address] [place] [address] Dr. Ramses Dumas Nitrite Ql (U) Negative Normal NEGATIVE [facility] Comment on above: Performed By: #### U KJ 24 #### [facility] [address] [place] [address] Dr. Ramses Dumas pH (U) 6.5 [pH] Normal 5-9 [facility] Comment on above: Performed By: #### U KJ 24 #### [facility] [address] [place] [address] Dr. Ramses Dumas Protein (U) [Mass/Vol] 100 mg/dL Abnormal NEGAT CHRIS/ TRACE [facility] Comment on above: Performed By: #### U KJ 24 #### [facility] [address] [place] [address] Dr. Ramses Dumas SPEC GRAVITY 1.020 Normal 1.005-<=1.02 5 [facility] Comment on above: Performed By: #### U KJ 24 #### [facility] [address] [place] [address] Dr. Ramses Dumas UR MICRO IND INDICATED Normal [facility] Comment on above: Performed By: #### U KJ 24 #### [facility] [address] [place] [address] Dr. Ramses Dumas Urobilinogen Qn (U) 0.2 {Lucero'U}/dL Normal 0.2 - 1. 0 [facility] Comment on above: Performed By: #### U KJ 24 #### [facility] [address] [place] [address] Dr. Ramses Dumas PROF 14(COMP METB)on 022 Albumin [Mass/Vol] 3.3 g/dL Critically low 3.4-5.0 [facility] Comment on above: Performed By: #### C MP #### [facility] [address] [place] [address] Dr. Ramses Dumas Albumin/Globulin [Mass ratio] 0.8 {ratio} Normal [facility] Comment on above: Performed By: #### C MP #### [facility] [address] [place] [address] Dr. Ramses Dumas ALP [Catalytic activity/Vol] 108 U/L Normal 46-116 [facility] Comment on above: Performed By: #### C MP #### [facility] [address] [place] [address] Dr. Ramses Dumas ALT [Catalytic activity/Vol] 103 U/L Critically high 14-59 [facility] Comment on above: Performed By: #### C MP #### [facility] [address] [place] [address] Dr. Ramses Dumas Anion gap [Moles/Vol] 6.6 mmol/L Normal [facility] Comment on above: Performed By: #### C MP #### [facility] [address] [place] [address] Dr. Ramses Dumas AST [Catalytic activity/Vol] 21 U/L Normal 15-37 [facility] Comment on above: Performed By: #### C MP #### [facility] [address] [place] [address] Dr. Ramses Dumas Bilirubin [Mass/Vol] 0.2 mg/dL Normal 0.2-1.0 [facility] Comment on above: Performed By: #### C MP #### [facility] [address] [place] [address] Dr. Ramses Dumas Calcium [Mass/Vol] 9.2 mg/dL Normal 8.5-10.1 [facility] Comment on above: Performed By: #### C MP #### [facility] [address] [place] [address] Dr. Ramses Dumas Chloride [Moles/Vol] 102 mmol/L Normal 98-107 [facility] Comment on above: Performed By: #### C MP #### [facility] [address] [place] [address] Dr. Ramses Dumas CO2 [Moles/Vol] 28.8 mmol/L Normal 21.0-32.0 [facility] Comment on above: Performed By: #### C MP #### [facility] [address] [place] [address] Dr. Ramses Dumas Creatinine [Mass/Vol] 0.92 mg/dL Normal 0.55-1.02 [facility] Comment on above: Performed By: #### C MP #### [facility] [address] [place] [address] Dr. Ramses Dumas EGFR-AF [place]IZ[place] >60 Normal >=60 [facility] Comment on above: Performed By: #### C MP #### [facility] [address] [place] [address] Dr. Ramses Dumas EGFR-NON AF CITIZEN OF [place] >60 Normal >=60 [facility] Comment on above: Performed By: #### C MP #### [facility] [address] [place] [address] Dr. Ramses Dumas Globulin (S) [Mass/Vol] 4.1 g/dL Normal [facility] Comment on above: Performed By: #### C MP #### [facility] [address] [address] [address] Ramses Dumas Glucose [Mass/Vol] 114 mg/dL Critically high 74-106 [facility] Comment on above: Performed By: #### C MP #### [facility] [address] [address] [address] Ramses Dumas Potassium [Moles/Vol] 3.4 mmol/L Critically low 3.5-5.1 [facility] Comment on above: Performed By: #### C MP #### [facility] [address] [place] [address] Dr. Ramses Dumas Protein [Mass/Vol] 7.4 g/dL Normal 6.4-8.2 [facility] Comment on above: Performed By: #### C MP #### [facility] [address] [address] [address] Ramses Dumas Sodium [Moles/Vol] 134 mmol/L Critically low 136-145 [facility] Comment on above: Performed By: #### C MP #### [facility] [address] [place] [address] Dr. Ramses Dumas Urea nitrogen [Mass/Vol] 11.0 mg/dL Normal 7.0-18.0 [facility] Comment on above: Performed By: #### C MP #### [facility] [address] [address] [address] Ramses Dumas Urea nitrogen/Creatinine [Mass ratio] 12.0 mg/mg Normal [facility] Comment on above: Performed By: #### C MP #### [facility] [address] [address] [address] Ramses Dumas URINE MICROSCOPIC ONLYon BACTERIA MODERATE Abnormal NONE SEEN [facility] Comment on above: Performed By: #### U KJ 24 #### [facility] [address] [address] [address] Ramses Dumas Bacteria identified Cx Nom (U) INDICATED Normal [facility] Comment on above: Performed By: #### U KJ 24 #### [facility] [address] [address] [address] Ramses Dumas CAST NONE SEEN Normal NONE SEEN [facility] Comment on above: Performed By: #### U KJ 24 #### [facility] [address] [place] [address] Dr. Ramses Dumas Crystals LM Nom (Urine sed) NONE SEEN Normal NONE SEEN [facility] Comment on above: Performed By: #### U KJ 24 #### [facility] [address] [place] [address] Dr. Ramses Dumas Epithelial cells LM Ql (Urine sed) RARE Normal NONE SEEN /RARE [facility] Comment on above: Performed By: #### U KJ 24 #### [facility] [address] [place] [address] Dr. Ramses Dumas MUCOUS NONE SEEN Normal NONE SEEN [facility] Comment on above: Performed By: #### U KJ 24 #### [facility] [address] [place] [address] Dr. Ramses Dumas RBC 20-50 Abnormal 0-2 [facility] Comment on above: Performed By: #### U KJ 24 #### [facility] [address] [place] [address] Dr. Ramses Dumas WBC 5-10 Abnormal NONE SEEN [facility] Comment on above: Performed By: #### U KJ 24 #### [facility] [address] [place] [address] Dr. Ramses Dumas CULTURE BLOODon 08-25-2022 Microscopic [...] S F Tetracycline >=16 R F Normal [facility] Comment on above: Performed By: #### B LDCX2 #### [facility] [address] [place] [address] Dr. Ramses Dumas Microscopic examination of blood, [...] S F Tetracycline >=16 R F Normal [facility] Comment on above: Performed By: #### C BC #### [facility] [address] [place] [address] Dr. Ramses Dumas CBC AUTO DIFFon 08-24-2022 BASO # 0.0 103/ul Normal 0.0-0.1 [facility] Comment on above: Performed By: #### C BC #### [facility] [address] [place] [address] Dr. Ramses Dumas Basophils/100 WBC (Bld) 0.1 % Critically low 0.2-2.0 [facility] Comment on above: Performed By: #### C BC #### [facility] [address] [place] [address] Dr. Ramses Dumas EO # 0.0 103/ul Normal 0.0-0.7 [facility] Comment on above: Performed By: #### C BC #### [facility] [address] [place] [address] Dr. Ramses Dumas Eosinophils/100 WBC (Bld) 0.0 % Critically low 0.9-7.0 [facility] Comment on above: Performed By: #### C BC #### [facility] [address] [place] [address] Dr. Ramses Dumas Erythrocyte distribution width (RBC) [Ratio] 13.5 % Normal 11.0-15.0 [facility] Comment on above: Performed By: #### C BC #### [facility] [address] [place] [address] Dr. Ramses Dumas Hematocrit (Bld) [Volume fraction] 33.0 % Critically low 36.0-48.0 [facility] Comment on above: Performed By: #### C BC #### [facility] [address] [place] [address] Dr. Ramses Dumas Hemoglobin (Bld) [Mass/Vol] 10.7 g/dL Critically low 12.0-16.0 [facility] Comment on above: Performed By: #### C BC #### [facility] [address] [place] [address] Dr. Ramses Dumas IG # 0.04 10e3/ul Critically high 0.00-0.03 [facility] Comment on above: Performed By: #### C BC #### [facility] [address] [place] [address] Dr. Ramses Dumas IG % 0.4 % Normal 0.0-0.5 [facility] Comment on above: Performed By: #### C BC #### [facility] [address] [place] [address] Dr. Ramses Dumas LYMPH # 0.8 103/ul Critically low 1.2-3.8 [facility] Comment on above: Performed By: #### C BC #### [facility] [address] [place] [address] Dr. Ramses Dumas Lymphocytes/100 WBC (Bld) 7.9 % Critically low 20.5-60.0 [facility] Comment on above: Performed By: #### C BC #### [facility] [address] [place] [address] Dr. Ramses Dumas MANUAL DIFF REQ NO Normal [facility] Comment on above: Performed By: #### C BC #### [facility] [address] [address] [address] Ramses Dumas MCH (RBC) [Entitic mass] 26.5 pg Critically low 26.7-34.0 [facility] Comment on above: Performed By: #### C BC #### [facility] [address] [place] [address] Dr. Ramses Dumas MCHC (RBC) [Mass/Vol] 32.4 g/dL Normal 29.9-35.2 [facility] Comment on above: Performed By: #### C BC #### [facility] [address] [place] [address] Dr. Ramses Dumas MCV (RBC) [Entitic vol] 81.7 fL Normal 81.0-99.0 [facility] Comment on above: Performed By: #### C BC #### [facility] [address] [place] [address] Dr. Ramses Dumas MONO # 0.6 103/ul Normal 0.3-0.8 [facility] Comment on above: Performed By: #### C BC #### [facility] [address] [place] [address] Dr. Ramses Dumas Monocytes/100 WBC (Bld) 6.3 % Normal 1.7-12.0 [facility] Comment on above: Performed By: #### C BC #### [facility] [address] [place] [address] Dr. Ramses Dumas NEUT # 8.6 103/ul Critically high 1.4-6.5 [facility] Comment on above: Performed By: #### C BC #### [facility] [address] [place] [address] Dr. Ramses Dumas Neutrophils/100 WBC (Bld) 85.3 % Critically high 43.0-75.0 [facility] Comment on above: Performed By: #### C BC #### [facility] [address] [place] [address] Dr. Ramses Dumas Platelet mean volume (Bld) [Entitic vol] 9.1 fL Critically low 9.5-13.5 [facility] Comment on above: Performed By: #### C BC #### [facility] [address] [address] [address] Ramses Dumas PLT 248 103/ul Normal 150-450 [facility] Comment on above: Performed By: #### C BC #### [facility] [address] [address] [address] Ramses Dumas RBC 4.04 106/ul Critically low 4.20-5.40 [facility] Comment on above: Performed By: #### C BC #### [facility] [address] [address] [address] Ramses Dumas WBC 10.1 103/ul Normal 4.0-11.0 [facility] Comment on above: Performed By: #### C BC #### [facility] [address] [place] [address] Dr. Ramses Dumas CULTURE URINEon 08-24-2022 CULTURE [...] S F Tetracycline >=16 R F Normal [facility] Comment on above: Performed By: #### U RCX #### [facility] [address] [place] [address] Dr. Ramses Dumas PROF 14(COMP METB)on 022 Albumin [Mass/Vol] 2.4 g/dL Critically low 3.4-5.0 [facility] Comment on above: Performed By: #### C VDTBH #### [facility] [address] [place] [address] Dr. Ramses Dumas Albumin/Globulin [Mass ratio] 0.7 {ratio} Normal [facility] Comment on above: Performed By: #### C VDTB #### [facility] [address] [address] [address] Ramses Dumas ALP [Catalytic activity/Vol] 95 U/L Normal 46-116 [facility] Comment on above: Performed By: #### C VDTBH #### [facility] [address] [address] [address] Ramses Dumas ALT [Catalytic activity/Vol] 327 U/L Critically high 14-59 [facility] Comment on above: Performed By: #### C VDTBH #### [facility] [address] [address] [address] Ramses Dumas Anion gap [Moles/Vol] 8.7 mmol/L Normal [facility] Comment on above: Performed By: #### C VDTBH #### [facility] [address] [address] [address] Ramses Dumas AST [Catalytic activity/Vol] 165 U/L Critically high 15-37 [facility] Comment on above: Performed By: #### C VDTBH #### [facility] [address] [address] [address] Ramses Dumas Bilirubin [Mass/Vol] 0.4 mg/dL Normal 0.2-1.0 [facility] Comment on above: Performed By: #### C VDTBH #### [facility] [address] [address] [address] Ramses Dumas Calcium [Mass/Vol] 8.0 mg/dL Critically low 8.5-10.1 [facility] Comment on above: Performed By: #### C VDTBH #### [facility] [address] [address] [address] Ramses Dumas Chloride [Moles/Vol] 108 mmol/L Critically high 98-107 [facility] Comment on above: Performed By: #### C VDTBH #### [facility] [address] [address] [address] Ramses Dumas CO2 [Moles/Vol] 25.3 mmol/L Normal 21.0-32.0 [facility] Comment on above: Performed By: #### C VDTBH #### [facility] [address] [address] [address] Ramses Dumas Creatinine [Mass/Vol] 0.70 mg/dL Normal 0.55-1.02 [facility] Comment on above: Performed By: #### C VDTBH #### [facility] [address] [address] [address] Ramses Dumas EGFR-AF [place]IZ[place] >60 Normal >=60 [facility] Comment on above: Performed By: #### C VDTBH #### [facility] [address] [address] [address] Ramses Dumas EGFR-NON AF CITIZEN [place] >60 Normal >=60 [facility] Comment on above: Performed By: #### C VDTBH #### [facility] [address] [place] [address] Dr. Ramses Dumas Globulin (S) [Mass/Vol] 3.6 g/dL Normal [facility] Comment on above: Performed By: #### C VDTBH #### [facility] [address] [place] [address] Dr. Ramses Dumas Glucose [Mass/Vol] 160 mg/dL Critically high 74-106 [facility] Comment on above: Performed By: #### C VDTBH #### [facility] [address] [place] [address] Dr. Ramses Dumas Potassium [Moles/Vol] 4.0 mmol/L Normal 3.5-5.1 [facility] Comment on above: Performed By: #### C VDTBH #### [facility] [address] [place] [address] Dr. Ramses Dumas Protein [Mass/Vol] 6.0 g/dL Critically low 6.4-8.2 [facility] Comment on above: Performed By: #### C VDTBH #### [facility] [address] [place] [address] Dr. Ramses Dumas Sodium [Moles/Vol] 138 mmol/L Normal 136-145 [facility] Comment on above: Performed By: #### C VDTBH #### [facility] [address] [place] [address] Dr. Ramses Dumas Urea nitrogen [Mass/Vol] 6.0 mg/dL Critically low 7.0-18.0 [facility] Comment on above: Performed By: #### C VDTBH #### [facility] [address] [place] [address] Dr. Ramses Dumas Urea nitrogen/Creatinine [Mass ratio] 8.6 mg/mg Normal [facility] Comment on above: Performed By: #### C VDTBH #### [facility] [address] [place] [address] Dr. Ramses Dumas CBC AUTO DIFFon 08-23-2022 BASO # 0.0 103/ul Normal 0.0-0.1 [facility] Comment on above: Performed By: #### U RCX #### [facility] [address] [place] [address] Dr. Ramses Dumas Basophils/100 WBC (Bld) 0.2 % Normal 0.2-2.0 [facility] Comment on above: Performed By: #### U RCX #### [facility] [address] [place] [address] Dr. Ramses Dumas EO # 0.0 103/ul Normal 0.0-0.7 [facility] Comment on above: Performed By: #### U RCX #### [facility] [address] [place] [address] Dr. Ramses Dumas Eosinophils/100 WBC (Bld) 0.1 % Critically low 0.9-7.0 [facility] Comment on above: Performed By: #### U RCX #### [facility] [address] [place] [address] Dr. Ramses Dumas Erythrocyte distribution width (RBC) [Ratio] 13.4 % Normal 11.0-15.0 [facility] Comment on above: Performed By: #### U RCX #### [facility] [address] [place] [address] Dr. Ramses Dumas Hematocrit (Bld) [Volume fraction] 34.1 % Critically low 36.0-48.0 [facility] Comment on above: Performed By: #### U RCX #### [facility] [address] [address] [address] Ramses Dumas Hemoglobin (Bld) [Mass/Vol] 10.9 g/dL Critically low 12.0-16.0 [facility] Comment on above: Performed By: #### U RCX #### [facility] [address] [address] [address] Ramses Dumas IG # 0.02 10e3/ul Normal 0.00-0.03 [facility] Comment on above: Performed By: #### U RCX #### [facility] [address] [address] [address] Ramses Dumas IG % 0.2 % Normal 0.0-0.5 [facility] Comment on above: Performed By: #### U RCX #### [facility] [address] [place] [address] Dr. Ramses Dumas LYMPH # 0.7 103/ul Critically low 1.2-3.8 [facility] Comment on above: Performed By: #### U RCX #### [facility] [address] [place] [address] Dr. Ramses Dumas Lymphocytes/100 WBC (Bld) 6.9 % Critically low 20.5-60.0 [facility] Comment on above: Performed By: #### U RCX #### [facility] [address] [place] [address] Dr. Ramses Dumas MANUAL DIFF REQ NO Normal [facility] Comment on above: Performed By: #### U RCX #### [facility] [address] [address] [address] Ramses Dumas MCH (RBC) [Entitic mass] 26.1 pg Critically low 26.7-34.0 [facility] Comment on above: Performed By: #### U RCX #### [facility] [address] [place] [address] Dr. Ramses Dumas MCHC (RBC) [Mass/Vol] 32.0 g/dL Normal 29.9-35.2 [facility] Comment on above: Performed By: #### U RCX #### [facility] [address] [address] [address] Ramses Dumas MCV (RBC) [Entitic vol] 81.8 fL Normal 81.0-99.0 [facility] Comment on above: Performed By: #### U RCX #### [facility] [address] [address] [address] Ramses Dumas MONO # 0.6 103/ul Normal 0.3-0.8 [facility] Comment on above: Performed By: #### U RCX #### [facility] [address] [address] [address] Ramses Dumas Monocytes/100 WBC (Bld) 5.9 % Normal 1.7-12.0 [facility] Comment on above: Performed By: #### U RCX #### [facility] [address] [place] [address] Dr. Ramses Dumas NEUT # 8.2 103/ul Critically high 1.4-6.5 [facility] Comment on above: Performed By: #### U RCX #### [facility] [address] [place] [address] Dr. Ramses Dumas Neutrophils/100 WBC (Bld) 86.7 % Critically high 43.0-75.0 [facility] Comment on above: Performed By: #### U RCX #### [facility] [address] [place] [address] Dr. Ramses Dumas Platelet mean volume (Bld) [Entitic vol] 9.4 fL Critically low 9.5-13.5 [facility] Comment on above: Performed By: #### U RCX #### [facility] [address] [address] [address] Ramses Dumas PLT 235 103/ul Normal 150-450 [facility] Comment on above: Performed By: #### U RCX #### [facility] [address] [address] [address] Ramses Dumas RBC 4.17 106/ul Critically low 4.20-5.40 [facility] Comment on above: Performed By: #### U RCX #### [facility] [address] [address] [address] Ramses Dumas WBC 9.5 103/ul Normal 4.0-11.0 [facility] Comment on above: Performed By: #### U RCX #### [facility] [address] [address] [address] Ramses Dumas PROF 14(COMP METB)on 022 Albumin [Mass/Vol] 2.6 g/dL Critically low 3.4-5.0 [facility] Comment on above: Performed By: #### U KJ 24 #### [facility] [address] [place] [address] Dr. Ramses Dumas Albumin/Globulin [Mass ratio] 0.8 {ratio} Normal [facility] Comment on above: Performed By: #### U KJ 24 #### [facility] [address] [place] [address] Dr. Ramses Dumas ALP [Catalytic activity/Vol] 82 U/L Normal 46-116 [facility] Comment on above: Performed By: #### U KJ 24 #### [facility] [address] [address] [address] Ramses Dumas ALT [Catalytic activity/Vol] 257 U/L Critically high 14-59 [facility] Comment on above: Performed By: #### U KJ 24 #### [facility] [address] [place] [address] Dr. Ramses Dumas Anion gap [Moles/Vol] 10.3 mmol/L Normal [facility] Comment on above: Performed By: #### U KJ 24 #### [facility] [address] [place] [address] Dr. Ramses Dumas AST [Catalytic activity/Vol] 196 U/L Critically high 15-37 [facility] Comment on above: Performed By: #### U KJ 24 #### [facility] [address] [place] [address] Dr. Ramses Dumas Bilirubin [Mass/Vol] 0.5 mg/dL Normal 0.2-1.0 [facility] Comment on above: Performed By: #### U KJ 24 #### [facility] [address] [address] [address] Ramses Dumas Calcium [Mass/Vol] 7.8 mg/dL Critically low 8.5-10.1 [facility] Comment on above: Performed By: #### U KJ 24 #### [facility] [address] [address] [address] Ramses Dumas Chloride [Moles/Vol] 104 mmol/L Normal 98-107 [facility] Comment on above: Performed By: #### U KJ 24 #### [facility] [address] [address] [address] Ramses Dumas CO2 [Moles/Vol] 24.4 mmol/L Normal 21.0-32.0 [facility] Comment on above: Performed By: #### U KJ 24 #### [facility] [address] [place] [address] Dr. Ramses Dumas Creatinine [Mass/Vol] 1.09 mg/dL Critically high 0.55-1.02 [facility] Comment on above: Performed By: #### U KJ 24 #### [facility] [address] [address] [address] Ramses Dumas EGFR-AF CITIZ[place] >60 Normal >=60 [facility] Comment on above: Performed By: #### U KJ 24 #### [facility] [address] [place] [address] Dr. Ramses Dumas EGFR-NON AF CITIZEN [place] 59 mL/min/1.73m2 Critically low >=60 [facility] Comment on above: Performed By: #### U KJ 24 #### [facility] [address] [address] [address] Ramses Dumas Globulin (S) [Mass/Vol] 3.3 g/dL Normal [facility] Comment on above: Performed By: #### U KJ 24 #### [facility] [address] [address] [address] Ramses Dumas Glucose [Mass/Vol] 143 mg/dL Critically high 74-106 [facility] Comment on above: Performed By: #### U KJ 24 #### [facility] [address] [address] [address] Ramses Dumas Potassium [Moles/Vol] 3.7 mmol/L Normal 3.5-5.1 [facility] Comment on above: Performed By: #### U KJ 24 #### [facility] [address] [place] [address] Dr. Ramses Dumas Protein [Mass/Vol] 5.9 g/dL Critically low 6.4-8.2 [facility] Comment on above: Performed By: #### U KJ 24 #### [facility] [address] [place] [address] Dr. Ramses Dumas Sodium [Moles/Vol] 135 mmol/L Critically low 136-145 [facility] Comment on above: Performed By: #### U KJ 24 #### [facility] [address] [place] [address] Dr. Ramses Dumas Urea nitrogen [Mass/Vol] 10.0 mg/dL Normal 7.0-18.0 [facility] Comment on above: Performed By: #### U KJ 24 #### [facility] [address] [place] [address] Dr. Ramses Dumas Urea nitrogen/Creatinine [Mass ratio] 9.2 mg/mg Normal [facility] Comment on above: Performed By: #### U KJ 24 #### [facility] [address] [place] [address] Dr. Ramses Dumas BLOOD CULTURE ID PANELon A. baumannii Not detected Normal NOT DETECTED [facility] Comment on above: Performed By: #### C VDTBH #### [facility] [address] [place] [address] Dr. Ramses Dumas Bacteriodes fragilis Not detected Normal NOT DETECTED [facility] Comment on above: Performed By: #### C VDTBH #### [facility] [address] [place] [address] Dr. Ramses Dumas BCID CONTROLS PASSED Normal [facility] Comment on above: Performed By: #### C VDTBH #### [facility] [address] [place] [address] Dr. Ramses Dumas BCIDBTHD BLOOD CULTURE BOTTLE INFORMATION Normal [facility] Comment on above: Performed By: #### C VDTBH #### [facility] [address] [place] [address] Dr. Ramses Dumas BCIDHD1 ANTIMICROBIAL RESISTANCE GENES [facility] Comment on above: Performed By: #### C VDTBH #### [facility] [address] [place] [address] Dr. Ramses Dumas BCIDHD2 SEE BELOW [facility] Comment on above: Result Comment: Note : Antimicrobial resitance can occur via multiple mechanisms. A Not Detected result for the [employer] antomicrobial resistance gene assays does not indicate antimicrobial susceptibility. Subculturing is required for species identification and susceptibility testing of isolates. Performed By: #### C VDTBH #### [facility] [address] [place] [address] Dr. Ramses Dumas BCIDHD3 Positive [facility] Comment on above: Performed By: #### C VDTBH #### [facility] [address] [place] [address] Dr. Ramses Dumas BCIDHD4 Negative [facility] Comment on above: Performed By: #### C VDTBH #### [facility] [address] [place] [address] Dr. Ramses Dumas BCIDHD5 YEAST Normal [facility] Comment on above: Performed By: #### C VDTBH #### [facility] [address] [place] [address] Dr. Ramses Dumas Bottle Set: Set 1 [facility] Comment on above: Performed By: #### C VDTBH #### [facility] [address] [place] [address] Dr. Ramses Dumas Bottle: Pediatric Normal [facility] Comment on above: Performed By: #### C VDTBH #### [facility] [address] [place] [address] Dr. Ramses Vincent. neoformans/gattii Not detected Normal NOT DETECTED [facility] Comment on above: Performed By: #### C VDTBH #### [facility] [address] [place] [address] Dr. Ramses Dumas Kim albicans Not detected Normal NOT DETECTED [facility] Comment on above: Performed By: #### C VDTBH #### [facility] [address] [place] [address] Dr. Ramses Dumas Kim auris Not detected Normal NOT DETECTED [facility] Comment on above: Performed By: #### C VDTBH #### [facility] [address] [place] [address] Dr. Ramses Dumas Kim glabrata Not detected Normal NOT DETECTED [facility] Comment on above: Performed By: #### C VDTBH #### [facility] [address] [place] [address] Dr. Ramses Dumas Kim Krusei Not detected Normal NOT DETECTED [facility] Comment on above: Performed By: #### C VDTBH #### [facility] [address] [place] [address] Dr. Ramses Dumas Kim Parapsilosis Not detected Normal NOT DETECTED [facility] Comment on above: Performed By: #### C VDTBH #### [facility] [address] [place] [address] Dr. Ramses Dumas Kim Tropicalis Not detected Normal NOT DETECTED [facility] Comment on above: Performed By: #### C VDTBH #### [facility] [address] [place] [address] Dr. Ramses Dumas CTX-M Resistant Gene Not Applicable Normal NOT DETECTE D [facility] Comment on above: Performed By: #### C VDTBH #### [facility] [address] [place] [address] Dr. Ramses Dumas E. Cloacae complex Not detected Normal NOT DETECTED [facility] Comment on above: Performed By: #### C VDTBH #### [facility] [address] [place] [address] Dr. Ramses Dumas E. faecalis Not detected Normal NOT DETECTED [facility] Comment on above: Performed By: #### C VDTBH #### [facility] [address] [place] [address] Dr. Ramses Dumas E. faecium Not detected Normal NOT DETECTED [facility] Comment on above: Performed By: #### C VDTBH #### [facility] [address] [place] [address] Dr. Ramses Dumas Enterobacteriaceae Not detected Normal NOT DETECTED [facility] Comment on above: Performed By: #### C VDTBH #### [facility] [address] [place] [address] Dr. Ramses Dumas Escherichia coli Not detected Normal NOT DETECTED [facility] Comment on above: Performed By: #### C VDTBH #### [facility] [address] [place] [address] Dr. Ramses Dumas H. influenzae Not detected Normal NOT DETECTED [facility] Comment on above: Performed By: #### C VDTBH #### [facility] [address] [place] [address] Dr. Ramses Dumas IMP Resistant Gene Not Applicable Normal NOT DETECTED [facility] Comment on above: Performed By: #### C VDTBH #### [facility] [address] [place] [address] Dr. Ramses Dumas K. oxytoca Not detected Normal NOT DETECTED [facility] Comment on above: Performed By: #### C VDTBH #### [facility] [address] [place] [address] Dr. Ramses Dumas K. pneumoniae Not detected Normal NOT DETECTED [facility] Comment on above: Performed By: #### C VDTBH #### [facility] [address] [place] [address] Dr. Ramses Dumas Klebsiella aerogenes Not detected Normal NOT DETECTED [facility] Comment on above: Performed By: #### C VDTBH #### [facility] [address] [place] [address] Dr. Ramses Dumas KPC Resistant Gene Not detected Normal NOT DETECTED [facility] Comment on above: Performed By: #### C VDTBH #### [facility] [address] [place] [address] Dr. Ramses Dumas List. monocytogenes Not detected Normal NOT DETECTED [facility] Comment on above: Performed By: #### C VDTBH #### [facility] [address] [place] [address] Dr. Ramses Dumas Mcr-1 Resistant Gene Not Applicable Normal NOT DETECTE D [facility] Comment on above: Performed By: #### C VDTBH #### [facility] [address] [place] [address] Dr. Ramses Dumas mecA/C Not Applicable Normal NOT DETECTED [facility] Comment on above: Performed By: #### C VDTBH #### [facility] [address] [place] [address] Dr. Ramses Dumas mecA/C MREJ Not Applicable Normal NOT DETECTED [facility] Comment on above: Performed By: #### C VDTBH #### [facility] [address] [place] [address] Dr. Ramses Dumas N. meningitidis Not detected Normal NOT DETECTED [facility] Comment on above: Performed By: #### C VDTBH #### [facility] [address] [place] [address] Dr. Ramses Dumas NDM Resistant Gene Not Applicable Normal NOT DETECTED [facility] Comment on above: Performed By: #### C VDTBH #### [facility] [address] [place] [address] Dr. Ramses Dumas Oxa-48-like Not Applicable Normal NOT DETECTED [facility] Comment on above: Performed By: #### C VDTBH #### [facility] [address] [place] [address] Dr. Ramses Dumas Proteus Not detected Normal NOT DETECTED [facility] Comment on above: Performed By: #### C VDTBH #### [facility] [address] [place] [address] Dr. Ramses Dumas Pseud. aeruginosa Not detected Normal NOT DETECTED [facility] Comment on above: Performed By: #### C VDTBH #### [facility] [address] [place] [address] Dr. Ramses Dumas S. maltophilia Not detected Normal NOT DETECTED [facility] Comment on above: Performed By: #### C VDTBH #### [facility] [address] [place] [address] Dr. Ramses Dumas Salmonella Not detected Normal NOT DETECTED [facility] Comment on above: Performed By: #### C VDTBH #### [facility] [address] [place] [address] Dr. Ramses Dumas Seratia marcescens Not detected Normal NOT DETECTED [facility] Comment on above: Performed By: #### C VDTBH #### [facility] [address] [place] [address] Dr. Ramses Dumas Site: unknown/not given Normal [facility] Comment on above: Performed By: #### C VDTBH #### [facility] [address] [place] [address] Dr. Ramses Dumas Stapphillip. aureus Not detected Normal NOT DETECTED [facility] Comment on above: Performed By: #### C VDTBH #### [facility] [address] [place] [address] Dr. Ramses Dumas Stapphillip. epidermidis Not detected Normal NOT DETECTED [facility] Comment on above: Performed By: #### C VDTBH #### [facility] [address] [place] [address] Dr. Ramses Dumas Stapphillip. lugdunensis Not detected Normal NOT DETECTED [facility] Comment on above: Performed By: #### C VDTBH #### [facility] [address] [place] [address] Dr. Ramses Dumas Staphylococcus Not detected Normal NOT DETECTED [facility] Comment on above: Performed By: #### C VDTBH #### [facility] [address] [place] [address] Dr. Ramses Dumas Strep. agalactiae Detected Critically abnormal NOT DETECTED [facility] Comment on above: Performed By: #### C VDTBH #### [facility] [address] [place] [address] Dr. Ramses Dumas Strep. pneumoniae Not detected Normal NOT DETECTED [facility] Comment on above: Performed By: #### C VDTBH #### [facility] [address] [place] [address] Dr. Ramses Dumas Strep. pyogenes Not detected Normal NOT DETECTED [facility] Comment on above: Performed By: #### C VDTBH #### [facility] [address] [place] [address] Dr. Ramses Dumas Streptococcus Detected Critically abnormal NOT DETECTED [facility] Comment on above: Performed By: #### C VDTBH #### [facility] [address] [place] [address] Dr. Ramses Dumas Efrain/B Resist. Gene Not detected Normal NOT DETECTED [facility] Comment on above: Performed By: #### C VDTBH #### [facility] [address] [place] [address] Dr. Ramses Dumas VIM Resistant Gene Not Applicable Normal NOT DETECTED [facility] Comment on above: Performed By: #### C VDTBH #### [facility] [address] [place] [address] Dr. Ramses Dumas CBC AUTO DIFFon 08-22-2022 BASO # 0.1 103/ul Normal 0.0-0.1 [facility] Comment on above: Performed By: #### U KJ 24 #### [facility] [address] [place] [address] Dr. Ramses Dumas Basophils/100 WBC (Bld) 0.7 % Normal 0.2-2.0 [facility] Comment on above: Performed By: #### U KJ 24 #### [facility] [address] [place] [address] Dr. Ramses Dumas EO # 0.1 103/ul Normal 0.0-0.7 [facility] Comment on above: Performed By: #### U KJ 24 #### [facility] [address] [place] [address] Dr. Ramses Dumas Eosinophils/100 WBC (Bld) 1.7 % Normal 0.9-7.0 [facility] Comment on above: Performed By: #### U KJ 24 #### [facility] [address] [place] [address] Dr. Ramses Dumas Erythrocyte distribution width (RBC) [Ratio] 13.2 % Normal 11.0-15.0 [facility] Comment on above: Performed By: #### U KJ 24 #### [facility] [address] [place] [address] Dr. Ramses Dumas Hematocrit (Bld) [Volume fraction] 39.8 % Normal 36.0-48.0 [facility] Comment on above: Performed By: #### U KJ 24 #### [facility] [address] [place] [address] Dr. Ramses Dumas Hemoglobin (Bld) [Mass/Vol] 12.9 g/dL Normal 12.0-16.0 [facility] Comment on above: Performed By: #### U KJ 24 #### [facility] [address] [place] [address] Dr. Ramses Dumas IG # 0.02 10e3/ul Normal 0.00-0.03 [facility] Comment on above: Performed By: #### U KJ 24 #### [facility] [address] [place] [address] Dr. Ramses Dumas IG % 0.2 % Normal 0.0-0.5 [facility] Comment on above: Performed By: #### U KJ 24 #### [facility] [address] [place] [address] Dr. Ramses Dumas LYMPH # 3.2 103/ul Normal 1.2-3.8 [facility] Comment on above: Performed By: #### U KJ 24 #### [facility] [address] [place] [address] Dr. Ramses Dumas Lymphocytes/100 WBC (Bld) 40.0 % Normal 20.5-60.0 [facility] Comment on above: Performed By: #### U KJ 24 #### [facility] [address] [place] [address] Dr. Ramses Dumas MANUAL DIFF REQ NO Normal [facility] Comment on above: Performed By: #### U KJ 24 #### [facility] [address] [place] [address] Dr. Ramses Dumas MCH (RBC) [Entitic mass] 26.6 pg Critically low 26.7-34.0 [facility] Comment on above: Performed By: #### U KJ 24 #### [facility] [address] [place] [address] Dr. Ramses Dumas MCHC (RBC) [Mass/Vol] 32.4 g/dL Normal 29.9-35.2 [facility] Comment on above: Performed By: #### U KJ 24 #### [facility] [address] [place] [address] Dr. Ramses Dumas MCV (RBC) [Entitic vol] 82.1 fL Normal 81.0-99.0 [facility] Comment on above: Performed By: #### U KJ 24 #### [facility] [address] [place] [address] Dr. Ramses Dumas MONO # 0.6 103/ul Normal 0.3-0.8 [facility] Comment on above: Performed By: #### U KJ 24 #### [facility] [address] [place] [address] Dr. Ramses Dumas Monocytes/100 WBC (Bld) 7.5 % Normal 1.7-12.0 [facility] Comment on above: Performed By: #### U KJ 24 #### [facility] [address] [place] [address] Dr. Ramses Dumas NEUT # 4.0 103/ul Normal 1.4-6.5 [facility] Comment on above: Performed By: #### U KJ 24 #### [facility] [address] [place] [address] Dr. Ramses Dumas Neutrophils/100 WBC (Bld) 49.9 % Normal 43.0-75.0 [facility] Comment on above: Performed By: #### U KJ 24 #### [facility] [address] [place] [address] Dr. Ramses Dumas Platelet mean volume (Bld) [Entitic vol] 9.3 fL Critically low 9.5-13.5 [facility] Comment on above: Performed By: #### U KJ 24 #### [facility] [address] [place] [address] Dr. Ramses Dumas PLT 354 103/ul Normal 150-450 [facility] Comment on above: Performed By: #### U KJ 24 #### [facility] [address] [address] [address] Ramses Dumas RBC 4.85 106/ul Normal 4.20-5.40 [facility] Comment on above: Performed By: #### U KJ 24 #### [facility] [id number] Ramses Dumas WBC 8.1 103/ul Normal 4.0-11.0 [facility] Comment on above: Performed By: #### U KJ 24 #### [facility] [address] [place] [address] ABD/PELVIS WO CONon [...] KESHIA IRIZARRY Date: 2022-08-22 07:04 Normal [facility] Covid-19 PCR (CVDTB)on SARS-CoV-2 (COVID-19) RNA FRANCESCA+probe Ql (Unsp spec) Not detected Normal NOT DETECTED [facility] Comment on above: Result Comment: When diagnostic [...] for this test is supported by the [place] of [employer] and Human Service's declaration that [...] used). Performed By: #### C MP #### [facility] [address] [place] [address] Dr. Ramses Dumas ER URINE PROFILEon 2 Bilirubin Ql (U) Negative Normal NEGATIVE [facility] Comment on above: Performed By: #### U RCX #### [facility] [address] [place] [address] Dr. Ramses Dumas Clarity (U) CLEAR Normal CLEAR [facility] Comment on above: Performed By: #### U RCX #### [facility] [address] [place] [address] Dr. Ramses Dumas Color (U) LT. YELLOW Normal YELLOW [facility] Comment on above: Performed By: #### U RCX #### [facility] [address] [place] [address] Dr. Ramses PÉREZD A micrscopic examination will be performed if indicated. Normal [facility] Comment on above: Performed By: #### U RCX #### [facility] [address] [place] [address] Dr. Ramess Dumas Glucose Ql (U) Negative Normal NEGATIVE [facility] Comment on above: Performed By: #### U RCX #### [facility] [address] [place] [address] Dr. Ramses Dumas Hemoglobin Ql (U) SMALL Abnormal NEGATIVE [facility] Comment on above: Performed By: #### U RCX #### [facility] [address] [place] [address] Dr. Ramses Dumas Ketones Ql (U) Negative Normal NEGATIVE [facility] Comment on above: Performed By: #### U RCX #### [facility] [address] [place] [address] Dr. Ramses Dumas LEUKOCYTES SMALL Abnormal NEGATIVE [facility] Comment on above: Performed By: #### U RCX #### [facility] [address] [place] [address] Dr. Ramses Dumas Nitrite Ql (U) Negative Normal NEGATIVE [facility] Comment on above: Performed By: #### U RCX #### [facility] [address] [place] [address] Dr. Ramses Dumas pH (U) 7.0 [pH] Normal 5-9 [facility] Comment on above: Performed By: #### U RCX #### [facility] [address] [place] [address] Dr. Ramses Dumas Protein (U) [Mass/Vol] 30 mg/dL Abnormal NEGAT CHRIS/ TRACE [facility] Comment on above: Performed By: #### U RCX #### [facility] [address] [place] [address] Dr. Ramses Dumas SPEC GRAVITY 1.020 Normal 1.005-<=1.02 5 [facility] Comment on above: Performed By: #### U RCX #### [facility] [address] [place] [address] Dr. Ramses Dumas UR MICRO IND INDICATED Normal [facility] Comment on above: Performed By: #### U RCX #### [facility] [address] [place] [address] Dr. Ramses Dumas Urobilinogen Qn (U) 0.2 {Lucero'U}/dL Normal 0.2 - 1. 0 [facility] Comment on above: Performed By: #### U RCX #### [facility] [address] [address] [address] Ramses Dumas LACTATE/LACTIC ACIDon 2021 Lactate [Moles/Vol] 2.3 mmol/L Critically high 0.4-1.9 [facility] Comment on above: Performed By: #### U RCX #### [facility] [address] [address] [address] Ramses Dumas URon 08-22-2022 , QUAL Negative Normal NEGATIVE [facility] Comment on above: Performed By: #### U RCX #### [facility] [address] [place] [address] Dr. Ramses Dumas PROF 14(COMP METB)on 022 Albumin [Mass/Vol] 3.5 g/dL Normal 3.4-5.0 [facility] Comment on above: Performed By: #### U RCX #### [facility] [address] [address] [address] Ramses Dumas Albumin/Globulin [Mass ratio] 0.9 {ratio} Normal [facility] Comment on above: Performed By: #### U RCX #### [facility] [address] [place] [address] Dr. Ramses Dumas ALP [Catalytic activity/Vol] 92 U/L Normal 46-116 [facility] Comment on above: Performed By: #### U RCX #### [facility] [address] [address] [address] Ramses Dumas ALT [Catalytic activity/Vol] 139 U/L Critically high 14-59 [facility] Comment on above: Performed By: #### U RCX #### [facility] [address] [address] [address] Ramses Dumas Anion gap [Moles/Vol] 10.2 mmol/L Normal [facility] Comment on above: Performed By: #### U RCX #### [facility] [address] [address] [address] Ramses Dumas AST [Catalytic activity/Vol] 112 U/L Critically high 15-37 [facility] Comment on above: Performed By: #### U RCX #### [facility] [address] [address] [address] Ramses Dumas Bilirubin [Mass/Vol] 0.2 mg/dL Normal 0.2-1.0 [facility] Comment on above: Performed By: #### U RCX #### [facility] [address] [address] [address] Ramses Dumas Calcium [Mass/Vol] 8.8 mg/dL Normal 8.5-10.1 [facility] Comment on above: Performed By: #### U RCX #### [facility] [address] [address] [address] Ramses Dumas Chloride [Moles/Vol] 105 mmol/L Normal 98-107 [facility] Comment on above: Performed By: #### U RCX #### [facility] [address] [address] [address] Ramses Dumas CO2 [Moles/Vol] 26.3 mmol/L Normal 21.0-32.0 [facility] Comment on above: Performed By: #### U RCX #### [facility] [address] [address] [address] Ramses Dumas Creatinine [Mass/Vol] 0.95 mg/dL Normal 0.55-1.02 [facility] Comment on above: Performed By: #### U RCX #### [facility] [address] [address] [address] Ramses Dumas EGFR-AF CITIZEN [place] >60 Normal >=60 [facility] Comment on above: Performed By: #### U RCX #### [facility] [address] [address] [address] Ramses Dumas EGFR-NON AF CITIZEN OF [place] >60 Normal >=60 [facility] Comment on above: Performed By: #### U RCX #### [facility] [address] [address] [address] Ramses Dumas Globulin (S) [Mass/Vol] 3.9 g/dL Normal [facility] Comment on above: Performed By: #### U RCX #### [facility] [address] [place] [address] Dr. Ramses Dumas Glucose [Mass/Vol] 137 mg/dL Critically high 74-106 [facility] Comment on above: Performed By: #### U RCX #### [facility] [address] [place] [address] Dr. Ramses Dumas Potassium [Moles/Vol] 3.5 mmol/L Normal 3.5-5.1 [facility] Comment on above: Performed By: #### U RCX #### [facility] [address] [place] [address] Dr. Ramses Dumas Protein [Mass/Vol] 7.4 g/dL Normal 6.4-8.2 [facility] Comment on above: Performed By: #### U RCX #### [facility] [address] [place] [address] Dr. Ramses Dumas Sodium [Moles/Vol] 138 mmol/L Normal 136-145 [facility] Comment on above: Performed By: #### U RCX #### [facility] [address] [place] [address] Dr. Ramses Dumas Urea nitrogen [Mass/Vol] 11.0 mg/dL Normal 7.0-18.0 [facility] Comment on above: Performed By: #### U RCX #### [facility] [address] [place] [address] Dr. Ramses Dumas Urea nitrogen/Creatinine [Mass ratio] 11.6 mg/mg Normal [facility] Comment on above: Performed By: #### U RCX #### [facility] [address] [place] [address] Dr. Ramses Dumas URINE MICROSCOPIC ONLYon BACTERIA LARGE Abnormal NONE SEEN [facility] Comment on above: Performed By: #### U RCX #### [facility] [address] [place] [address] Dr. Ramses Dumas Bacteria identified Cx Nom (U) CX ALREADY ORDERED Normal [facility] Comment on above: Performed By: #### U RCX #### [facility] [address] [place] [address] Dr. Ramses Dumas CAST NONE SEEN Normal NONE SEEN [facility] Comment on above: Performed By: #### U RCX #### [facility] [address] [place] [address] Dr. Ramses Dumas Crystals LM Nom (Urine sed) NONE SEEN Normal NONE SEEN [facility] Comment on above: Performed By: #### U RCX #### [facility] [address] [place] [address] Dr. Ramses Dumas Epithelial cells LM Ql (Urine sed) MANY Abnormal NONE SEEN /RARE [facility] Comment on above: Performed By: #### U RCX #### [facility] [address] [place] [address] Dr. Ramses Dumas MUCOUS NONE SEEN Normal NONE SEEN [facility] Comment on above: Performed By: #### U RCX #### [facility] [address] [place] [address] Dr. Ramses Dumas RBC 5-10 Abnormal 0-2 [facility] Comment on above: Performed By: #### U RCX #### [facility] [address] [place] [address] Dr. Ramses Dumas WBC 50-75 Abnormal NONE SEEN [facility] Comment on above: Performed By: #### U RCX #### [facility] [address] [place] [address] Dr. Ramses Dumas CULTURE URINEon 08-15-2022 CULTURE [...] F Tetracycline >=16 R F Normal [facility] Comment on above: Performed By: #### U RCX #### [facility] [address] [place] [address] Dr. Ramses Dumas ACETAMINOPHENon 08-13-2022 Acetaminophen [Mass/Vol] ug/mL Critically low 10.0-30.0 [facility] Comment on above: Performed By: #### U RCX #### [facility] [address] [place] [address] Dr. Ramses Dumas CBC AUTO DIFFon 08-13-2022 BASO # 0.1 103/ul Normal 0.0-0.1 [facility] Comment on above: Performed By: #### C VDTBH #### [facility] [address] [place] [address] Dr. Ramses Dumas Basophils/100 WBC (Bld) 0.8 % Normal 0.2-2.0 [facility] Comment on above: Performed By: #### C VDTBH #### [facility] [address] [place] [address] Dr. Ramses Dumas EO # 0.1 103/ul Normal 0.0-0.7 [facility] Comment on above: Performed By: #### C VDTBH #### [facility] [address] [place] [address] Dr. Ramses Dumas Eosinophils/100 WBC (Bld) 1.6 % Normal 0.9-7.0 [facility] Comment on above: Performed By: #### C VDTBH #### [facility] [address] [place] [address] Dr. Ramses Dumas Erythrocyte distribution width (RBC) [Ratio] 13.3 % Normal 11.0-15.0 [facility] Comment on above: Performed By: #### C VDTBH #### [facility] [address] [place] [address] Dr. Ramses Dumas Hematocrit (Bld) [Volume fraction] 40.6 % Normal 36.0-48.0 [facility] Comment on above: Performed By: #### C VDTBH #### [facility] [address] [place] [address] Dr. Ramses Dumas Hemoglobin (Bld) [Mass/Vol] 13.2 g/dL Normal 12.0-16.0 [facility] Comment on above: Performed By: #### C VDTBH #### [facility] [address] [place] [address] Dr. Ramses Dumas IG # 0.01 10e3/ul Normal 0.00-0.03 [facility] Comment on above: Performed By: #### C VDTBH #### [facility] [address] [place] [address] Dr. Ramses Dumas IG % 0.2 % Normal 0.0-0.5 [facility] Comment on above: Performed By: #### C VDTBH #### [facility] [address] [place] [address] Dr. Ramses Dumas LYMPH # 2.4 103/ul Normal 1.2-3.8 [facility] Comment on above: Performed By: #### C VDTBH #### [facility] [address] [place] [address] Dr. Ramses Dumas Lymphocytes/100 WBC (Bld) 37.7 % Normal 20.5-60.0 [facility] Comment on above: Performed By: #### C VDTBH #### [facility] [address] [place] [address] Dr. Ramses Dumas MANUAL DIFF REQ NO Normal [facility] Comment on above: Performed By: #### C VDTBH #### [facility] [address] [place] [address] Dr. Ramses Dumas MCH (RBC) [Entitic mass] 26.7 pg Normal 26.7-34.0 [facility] Comment on above: Performed By: #### C VDTBH #### [facility] [address] [place] [address] Dr. Ramses Dumas MCHC (RBC) [Mass/Vol] 32.5 g/dL Normal 29.9-35.2 [facility] Comment on above: Performed By: #### C VDTBH #### [facility] [address] [place] [address] Dr. Ramses Dumas MCV (RBC) [Entitic vol] 82.0 fL Normal 81.0-99.0 [facility] Comment on above: Performed By: #### C VDTBH #### [facility] [address] [place] [address] Dr. Ramses Dumas MONO # 0.6 103/ul Normal 0.3-0.8 [facility] Comment on above: Performed By: #### C VDTBH #### [facility] [address] [place] [address] Dr. Ramses Dumas Monocytes/100 WBC (Bld) 8.6 % Normal 1.7-12.0 [facility] Comment on above: Performed By: #### C VDTBH #### [facility] [address] [place] [address] Dr. Ramses Dumas NEUT # 3.3 103/ul Normal 1.4-6.5 [facility] Comment on above: Performed By: #### C VDTBH #### [facility] [address] [place] [address] Dr. Ramses Dumas Neutrophils/100 WBC (Bld) 51.1 % Normal 43.0-75.0 [facility] Comment on above: Performed By: #### C VDTBH #### [facility] [address] [place] [address] Dr. Ramses Dumas Platelet mean volume (Bld) [Entitic vol] 8.7 fL Critically low 9.5-13.5 [facility] Comment on above: Performed By: #### C VDTBH #### [facility] [address] [place] [address] Dr. Ramses Dumas PLT 409 103/ul Normal 150-450 [facility] Comment on above: Performed By: #### C VDTBH #### [facility] [address] [place] [address] Dr. Ramses Dumas RBC 4.95 106/ul Normal 4.20-5.40 [facility] Comment on above: Performed By: #### C VDTBH #### [facility] [address] [place] [address] Dr. Ramses Dumas WBC 6.4 103/ul Normal 4.0-11.0 [facility] Comment on above: Performed By: #### C VDTBH #### [facility] [address] [place] [address] Dr. Ramses Dumas Covid-19 PCR ([facility])on 07-20 SARS-CoV-2 (COVID-19) RNA FRANCESCA+probe Ql (Unsp spec) Not detected Normal NOT DETECTED [facility] Comment on above: Result Comment: When diagnostic [...] for this test is supported by the [place] of [employer] and Human Service's declaration that [...] used). Performed By: #### C VDTBH #### [facility] [address] [place] [address] Dr. Ramses Dumas DRUG SCREEN RAPID (URINE)on 08-13-2022 AMP Negative Normal NEGATIVE [facility] Comment on above: Performed By: #### C BC #### [facility] [address] [place] [address] Dr. Ramses Dumas BAR Negative Normal NEGATIVE [facility] Comment on above: Performed By: #### C BC #### [facility] [address] [place] [address] Dr. Ramses Dumas BUP Negative Normal NEGATIVE [facility] Comment on above: Performed By: #### C BC #### [facility] [address] [place] [address] Dr. Ramses Dumas BZO Negative Normal NEGATIVE [facility] Comment on above: Performed By: #### C BC #### [facility] [address] [place] [address] Dr. Ramses Dumas ODILIA Negative Normal NEGATIVE [facility] Comment on above: Performed By: #### C BC #### [facility] [address] [place] [address] Dr. Ramses Dumas CUT-OFFS SEE BELOW Normal [facility] Comment on above: Result Comment: AMP (Amphetamine): 500ng/mL, BAR (Barbituates): 200 ng/mL, BZO (Benzodiazepines): 150 ng/mL, BUP (Buprenorphine): 10 ng/mL, ODILIA (Cocaine): 150 ng/mL, mAMP (Methamphetamine): 500 ng/mL, MTD (Methadone): 200 ng/mL, OPI (Opiates): 100 ng/mL, OXY (Oxycodone): 100 ng/mL, PCP (Phencyclidine): 25 ng/mL, PPX (Propoxyphene): 300 ng/mL, THC (Cannabinoids): 50 ng/mL, TCA (Trycyclic Antidepressants): 300 ng/mL Performed By: #### C BC #### [facility] [address] [place] [address] Dr. Ramses Dumas DRUG CUT HEADER DRUG CLASS TEST SYSTEM CUT-OFF CONCENTRATIONS ARE FOLLOWS: Normal [facility] Comment on above: Performed By: #### C BC #### [facility] [address] [place] [address] Dr. Ramses Duams mAMP Negative Normal NEGATIVE [facility] Comment on above: Performed By: #### C BC #### [facility] [address] [place] [address] Dr. Ramses Dumas MTD Negative Normal NEGATIVE [facility] Comment on above: Performed By: #### C BC #### [facility] [address] [place] [address] Dr. Ramses Dumas OPI Negative Normal NEGATIVE [facility] Comment on above: Performed By: #### C BC #### [facility] [address] [place] [address] Dr. Ramses Dumas OXY Negative Normal NEGATIVE [facility] Comment on above: Performed By: #### C BC #### [facility] [address] [place] [address] Dr. Ramses Dumas PCP Negative Normal NEGATIVE [facility] Comment on above: Performed By: #### C BC #### [facility] [address] [place] [address] Dr. Ramses Dumas PPX Negative Normal NEGATIVE [facility] Comment on above: Performed By: #### C BC #### [facility] [address] [place] [address] Dr. Ramses Dumas TCA Negative Normal NEGATIVE [facility] Comment on above: Performed By: #### C BC #### [facility] [address] [place] [address] Dr. Ramses Dumas THC Negative Normal NEGATIVE [facility] Comment on above: Performed By: #### C BC #### [facility] [address] [place] [address] Dr. Ramses Dumas ER URINE PROFILEon 2 Bilirubin Ql (U) Negative Normal NEGATIVE [facility] Comment on above: Performed By: #### C BC #### [facility] [address] [place] [address] Dr. Ramses Dumas Clarity (U) CLEAR Normal CLEAR [facility] Comment on above: Performed By: #### C BC #### [facility] [address] [place] [address] Dr. Ramses Dumas Color (U) LT. YELLOW Normal YELLOW [facility] Comment on above: Performed By: #### C BC #### [facility] [address] [place] [address] Dr. Ramses Dumas ERUAHD A micrscopic examination will be performed if indicated. Normal [facility] Comment on above: Performed By: #### C BC #### [facility] [address] [place] [address] Dr. Ramses Dumas Glucose Ql (U) Negative Normal NEGATIVE [facility] Comment on above: Performed By: #### C BC #### [facility] [address] [place] [address] Dr. Ramses Dumas Hemoglobin Ql (U) LARGE Abnormal NEGATIVE [facility] Comment on above: Performed By: #### C BC #### [facility] [address] [place] [address] Dr. Ramses Dumas Ketones Ql (U) Negative Normal NEGATIVE [facility] Comment on above: Performed By: #### C BC #### [facility] [address] [place] [address] Dr. Ramses Dumas LEUKOCYTES LARGE Abnormal NEGATIVE [facility] Comment on above: Performed By: #### C BC #### [facility] [address] [place] [address] Dr. Ramses Dumas Nitrite Ql (U) Positive Abnormal NEGATIVE [facility] Comment on above: Performed By: #### C BC #### [facility] [address] [place] [address] Dr. Ramses Dumas pH (U) 6.0 [pH] Normal 5-9 [facility] Comment on above: Performed By: #### C BC #### [facility] [address] [place] [address] Dr. Ramses Dumas Protein (U) [Mass/Vol] 30 mg/dL Abnormal NEGAT CHRIS/ TRACE [facility] Comment on above: Performed By: #### C BC #### [facility] [address] [place] [address] Dr. Ramses Dumas SPEC GRAVITY >=1.030 Abnormal 1.005-<=1.02 5 [facility] Comment on above: Performed By: #### C BC #### [facility] [address] [place] [address] Dr. Ramses Dumas UR MICRO IND INDICATED Normal [facility] Comment on above: Performed By: #### C BC #### [facility] [address] [place] [address] Dr. Ramses Dumas Urobilinogen Qn (U) 0.2 {Lucero'U}/dL Normal 0.2 - 1. 0 [facility] Comment on above: Performed By: #### C BC #### [facility] [address] [place] [address] Dr. Ramses Dumas ETHANOL (BLD ALC)on 08-13-20 22 ALC NOTE NOTE: 80 mg/dl is th e legal limit for a blood alcohol level Normal [facility] Comment on above: Performed By: #### B LDCX2 #### [facility] [address] [address] [address] Ramses Dumas Ethanol [Mass/Vol] mg/dL Normal [facility] Comment on above: Performed By: #### B LDCX2 #### [facility] [address] [address] [address] Ramses Dumas URon 08-13-2022 , QUAL Negative Normal NEGATIVE [facility] Comment on above: Performed By: #### C BC #### [facility] [address] [address] [address] Ramses Dumas PROF 14(COMP METB)on 022 Albumin [Mass/Vol] 3.8 g/dL Normal 3.4-5.0 [facility] Comment on above: Performed By: #### U RCX #### [facility] [address] [address] [address] Ramses Dumas Albumin/Globulin [Mass ratio] 0.9 {ratio} Normal [facility] Comment on above: Performed By: #### U RCX #### [facility] [address] [address] [address] Ramses Dumas ALP [Catalytic activity/Vol] 82 U/L Normal 46-116 [facility] Comment on above: Performed By: #### U RCX #### [facility] [address] [address] [address] Ramses Dumas ALT [Catalytic activity/Vol] 41 U/L Normal 14-59 [facility] Comment on above: Performed By: #### U RCX #### [facility] [address] [address] [address] Ramses Dumas Anion gap [Moles/Vol] 9.3 mmol/L Normal [facility] Comment on above: Performed By: #### U RCX #### [facility] [address] [address] [address] Ramses Dumas AST [Catalytic activity/Vol] 21 U/L Normal 15-37 [facility] Comment on above: Performed By: #### U RCX #### [facility] [address] [place] [address] Dr. Ramses Dumas Bilirubin [Mass/Vol] 0.3 mg/dL Normal 0.2-1.0 [facility] Comment on above: Performed By: #### U RCX #### [facility] [address] [place] [address] Dr. Ramses Dumas Calcium [Mass/Vol] 8.9 mg/dL Normal 8.5-10.1 [facility] Comment on above: Performed By: #### U RCX #### [facility] [address] [place] [address] Dr. Ramses Dumas Chloride [Moles/Vol] 105 mmol/L Normal 98-107 [facility] Comment on above: Performed By: #### U RCX #### [facility] [address] [place] [address] Dr. Ramses Dumas CO2 [Moles/Vol] 28.5 mmol/L Normal 21.0-32.0 [facility] Comment on above: Performed By: #### U RCX #### [facility] [address] [place] [address] Dr. Ramses Dumas Creatinine [Mass/Vol] 0.81 mg/dL Normal 0.55-1.02 [facility] Comment on above: Performed By: #### U RCX #### [facility] [address] [place] [address] Dr. Ramses Dumas EGFR-AF CITIZEN [place] >60 Normal >=60 [facility] Comment on above: Performed By: #### U RCX #### [facility] [address] [place] [address] Dr. Ramses Dumas EGFR-NON AF CITIZEN OF [place] >60 Normal >=60 [facility] Comment on above: Performed By: #### U RCX #### [facility] [address] [place] [address] Dr. Ramses Dumas Globulin (S) [Mass/Vol] 4.1 g/dL Normal [facility] Comment on above: Performed By: #### U RCX #### [facility] [address] [place] [address] Dr. Ramses Dumas Glucose [Mass/Vol] 100 mg/dL Normal 74-106 [facility] Comment on above: Performed By: #### U RCX #### [facility] [address] [place] [address] Dr. Ramses Dumas Potassium [Moles/Vol] 3.8 mmol/L Normal 3.5-5.1 [facility] Comment on above: Performed By: #### U RCX #### [facility] [address] [place] [address] Dr. Ramses Dumas Protein [Mass/Vol] 7.9 g/dL Normal 6.4-8.2 [facility] Comment on above: Performed By: #### U RCX #### [facility] [address] [place] [address] Dr. Ramses Dumas Sodium [Moles/Vol] 139 mmol/L Normal 136-145 [facility] Comment on above: Performed By: #### U RCX #### [facility] [address] [place] [address] Dr. Ramses Dumas Urea nitrogen [Mass/Vol] 10.0 mg/dL Normal 7.0-18.0 [facility] Comment on above: Performed By: #### U RCX #### [facility] [address] [place] [address] Dr. Ramses Dumas Urea nitrogen/Creatinine [Mass ratio] 12.3 mg/mg Normal [facility] Comment on above: Performed By: #### U RCX #### [facility] [address] [place] [address] Dr. Ramses Dumas SALICYLATEon 08-13-2022 SALICYLATE <2.8 Normal <=19.9 [facility] Comment on above: Performed By: #### U RCX #### [facility] [address] [place] [address] Dr. Ramses Dumas URINE MICROSCOPIC ONLYon BACTERIA LARGE Abnormal NONE SEEN [facility] Comment on above: Performed By: #### C BC #### [facility] [address] [place] [address] Dr. Ramses Dumas Bacteria identified Cx Nom (U) INDICATED Normal [facility] Comment on above: Performed By: #### C BC #### [facility] [address] [place] [address] Dr. Ramses Dumas CA OX CRYSTALS RARE Normal [facility] Comment on above: Performed By: #### C BC #### [facility] [address] [place] [address] Dr. Ramses Dumas CAST NONE SEEN Normal NONE SEEN [facility] Comment on above: Performed By: #### C BC #### [facility] [address] [place] [address] Dr. Ramses Dumas Crystals LM Nom (Urine sed) SEEN Abnormal NONE SEEN [facility] Comment on above: Performed By: #### C BC #### [facility] [address] [place] [address] Dr. Ramses Dumas Epithelial cells LM Ql (Urine sed) MODERATE Abnormal NONE SEEN /RARE [facility] Comment on above: Performed By: #### C BC #### [facility] [address] [place] [address] Dr. Ramses Dumas MUCOUS NONE SEEN Normal NONE SEEN [facility] Comment on above: Performed By: #### C BC #### [facility] [address] [place] [address] Dr. Ramses Dumas RBC 10-20 Abnormal 0-2 [facility] Comment on above: Performed By: #### C BC #### [facility] [address] [place], [place] [id number] Dr. Ramses Dumas WBC 20-50 Abnormal NONE SEEN [facility] Comment on above: Performed By: #### C BC #### [facility] [address] [place] [address] Dr. Ramses Dumas Pap IG,rfx Aptima HPV all pt hon 08-09-2022 . . Normal [facility] Comment on above: Performed By: #### C MP #### [facility] [address] [address] [address] Ramses Dumas DIAGNOSIS: Comment Abnormal [facility] Comment on above: Result Comment: EPIT HELIAL CELL ABNORMALITY. LOW GRADE SQUAMOUS INTRAEPITHELIAL LESION (LSIL). Performed By: #### C MP #### [facility] [address] [place] [address] Dr. Ramses Dumas Electronically signed by: Comment Normal [facility] Comment on above: Result Comment: Arnaud Joseph MD, Pathologist Performed By: #### C MP #### [facility] [address] [place] [address] Dr. Ramses Dumas HPV Aptima Negative Normal Negative [facility] Comment on above: Result Comment: This nucleic acid amplification test detects fourteen high-risk HPV types (16,18,31,33,35,39,45,51,52,56,58,59,66,68) without differentiation. Performed By: #### C MP #### [facility] [address] [place] [address] Dr. Ramses Dumas Methodology: Comment Normal [facility] Comment on above: Result Comment: This liquid based ThinPrep(R) pap test was screened with the use of an image guided system. Performed By: #### C MP #### [facility] [address] [place] [address] Dr. Ramses Dumas Note: Comment Normal [facility] Comment on above: Result Comment: The Pap smear is a screening test designed to aid in the detection of premalignant and malignant conditions of the uterine cervix. It is not a diagnostic procedure and should not be used as the sole means of detecting cervical cancer. Both false-positive and false-negative reports do occur. . Performed By: #### C MP #### [facility] [address] [place] [address] Dr. Ramses Dumas Pathologist Provided ICD10 Comment Normal [facility] Comment on above: Result Comment: [id number] Performed By: #### C MP #### [facility] [address] [place] [address] Dr. Ramses Dumas Performed by: Comment Normal [facility] Comment on above: Result Comment: Gail Ruano, Network Operations Technician (ASCP) Performed By: #### C MP #### [facility] [address] [address] [address] Ramses Dumas Reflex Criteria: Comment [facility] Comment on above: Result Comment: See below for HPV testing results. . Performed By: #### C MP #### [facility] [id number] Ramses Dumas Specimen adequacy: Comment Normal [facility] Comment on above: Result Comment: Sati sfactory for evaluation. Endocervical and/or squamous metaplastic cells (endocervical component) are present. Performed By: #### C MP #### [facility] [address] [address] [address] Ramses Dumas Vital Signs Date Time Vital Sign Value Performing Clinician Faci litalonso 03-20-2023 10:30-0400 Blood Pressure Location Caesar VILLA [facility] 03-20-2023 10:30-0400 Diastolic blood pressure 73 mm[Hg] Caesar VILLA [facility] 03-20-2023 10:30-0400 Heart rate 80 /min Caesar VILLA [facility] 03-20-2023 10:30-0400 Respiratory rate 16 /min Caesar VILLA [facility] 03-20-2023 10:30-0400 Systolic blood pressure 128 mm[Hg] Caesar VILLA [facility] Encounters Encounter Date Encounter Type Care Provider Facility Start: 12-29-2023 End: 12-29-2023 ambulatory Domingo Das Facility:[facility] Start: 12-17-2023 End: 12-17-2023 ambulatory CELIO VAN Not Available Start: 12-04-2023 End: 12-05-2023 ambulatory Caesar VILLA Facility:[facility] Start: 12-04-2023 End: 12-04-2023 Patient encounter procedure Caesar Turner IDALMIS [facility] Start: 04-09-2023 End: 04-10-2023 ambulatory Caesar R IDALMIS Facility:CD:[id number] Start: 03-20-2023 End: 03-21-2023 ambulatory Caesar Yue IDALMIS Facility:[facility] Start: 03-20-2023 End: 03-20-2023 Patient encounter procedure Caesar R IDALMIS [facility] Start: 02-16-2023 End: 02-16-[address] DOMINGO DAS . Facility:[facility] Start: 02-02-2023 End: 02-02-[address] DOMINGO DAS . Facility:[facility] Start: 12-26-2022 End: 12-27-2022 ambulatory Caesar VILLA Facility:[facility] Start: 12-26-2022 End: 12-26-2022 Patient encounter procedure Caesar uTrner IDALMIS [facility] Start: 12-16-2022 End: 12-17-[address] CAESAR VILLA . Facility:[facility] Start: 12-15-2022 End: 12-16-[address] CAESAR VILLA . Facility:[facility] Start: 11-27-[address] DOMINGO DAS . Facili ty:[facility] Start: 11-07-2022 End: 11-07-[address] DOMINGO DAS . Facility:[facility] Start: 11-04-2022 Encounter for preprocedural cardiovascular examination DR TOMASZ GIBBS . [facility] Start: 11-04-2022 Encounter for preprocedural laboratory examination DR TOMASZ GIBBS . [facility] Start: 11-03-2022 End: 11-04-2022 Encounter for preprocedural cardiovascular examination DR DOMINGO DAS . Facility:[facility] Start: 11-03-2022 End: 11-04-[address] DOMINGO DAS . Facility:[facility] Start: 09-20-2022 Encounter for preprocedural laboratory examination DR CAESAR VILLA . [facility] Start: 09-18-2022 End: 09-18-[address] CAESAR VILLA . Facility:[facility] Start: 09-16-2022 End: 09-17-[address] CAESAR VILLA . Facility:[facility] Start: 09-16-2022 End: 09-17-2022 Encounter for preprocedural laboratory examination DR CAESAR VILLA . Facility:[facility] Start: 09-05-2022 End: 09-05-2022 ambulatory ORA BOND . Facility:[facility] Start: 09-04-2022 End: 09-04-2022 ambulatory DANIEL SANTIAGO Facility:[facility] Start: 09-04-2022 End: 09-04-2022 ambulatory Daniel Santiago APRN.FLAVORING OIL FILTERER Work Phone: Urology Comment on above: NO SHOW (Primary Dx) Start: 09-04-2022 End: 09-04-2022 Telemedicine consultation with patient Daniel M Ulises FABRICATION OPERATOR.FLAVORING OIL FILTERER Work Phone: [facility] Start: 08-28-2022 End: 08-29-[address] ERWIN MOORE Facility:[facility] Start: 08-22-2022 End: 08-24-[address] DOMINGO DAS . Facility:[facility] Start: 08-13-2022 End: 08-13-2022 ambulatory ORA BOND . Facility:[facility] Start: 07-31-2022 Encounter for cervic al smear to confirm findings of recent normal smear following initial abnormal smear DR TOMASZ GIBBS . [facility] Start: 07-30-2022 End: 07-30-[address] DOMINGO [...] Start: 06-19-2022 Influenza vaccination INFLUENZA (#1) [facility] Start: 10-19-2021 DEPRESSION ASSESSMENT DEPRESSION ASS ESSMENT [facility] Start: 2021 HPV TESTING HPV TESTING [facility] Start: 2012 PAP TESTING PAP TESTING [facility] Start: 2010 Urine microalbumin profile DTAP,TDAP ,TD (1 - Tdap) [facility] Start: 2009 HEPATITIS C SCREENING HEPATITIS C SC SAROJ [facility] Start: 2009 HIV SCREENING HIV SCREENING [facility] Start: 03-14-1992 COVID-19 VACCINE (#1) COVID-19 VACCI NE (#1) [facility] Start: 1991 HEPATITIS B (1 of 3 - 3-dose series) HEPATITIS B (1 of 3 - 3-dose series) [facility] Immunizations Immunization Date Immunization Notes Care Provider Beata moore 08-01-2019 influenza virus vaccine, unspecified formulation Caesardinesh VILLA [facility] 08-09-2018 tetanus toxoid, redu franco diphtheria toxoid, and acellular pertussis vaccine, adsorbed Caesar IDALMIS [facility] 08-08-2018 influenza virus vaccine, unspecified formulation Caesar VILLA [facility] 06-19-2004 hepatitis B vaccine, pediatric or pediatric/adolescent dosage Caesar VILLA [facility] 03-27-2004 hepatitis B vaccine, pediatric or pediatric/adolescent dosage Caesar VILLA [facility] 12-18-2003 hepatitis B vaccine, pediatric or pediatric/adolescent dosage Caesar VILLA [facility] 12-18-2003 measles, mumps and rubella virus vaccine Caesar VILLA [facility] 04-10-1993 DTaP, unspecified formulation CaesarTryouts [facility] 04-10-1993 poliovirus vaccine, unspecified formulation Caesar VILLA [facility] 12-28-1992 Hib, unspecified formulation Caesar VILLA [facility] 12-28-1992 measles, mumps and rubella virus vaccine Caesar VILLA [facility] 03-26-1992 Hib, unspecified formulation Caesar VILLA [facility] 01-18-1992 Hib, unspecified formulation Caesar VILLA [facility] 1991 Hib, unspecified formulation Caesar VILLA [facility] Payers Date Payer Category Payer Self-pay 2021 Medicaid [place] MEDICA[employer] TERM 09/17 [facility] MEDICAID [id number] 2021-Present [phone] [address] [place] [address] Medicaid [id number] 1991 Unknown [id number] 2.16.840.1.391992.3.579.2.593 1991 Unknown [id number] 2.16.840.1.309587.3.579.2.593 1991 Unknown [id number] 2.16.840.1.512338.3.579.2.593 1991 Unknown [id number] 2.16.840.1.363912.3.579.2.593 1991 Unknown [id number] 2.16.840.1.212706.3.579.2.593 1991 Unknown [id number] 2.16.840.1.039441.3.579.2.593 1991 Unknown [id number] 2.16.840.1.727514.3.579.2.593 1991 Unknown [id number] 2.16.840.1.510217.3.579.2.593 1991 Unknown [id number] 2.16.840.1.374320.3.579.2.593 1991 Unknown [id number] 2.16.840.1.490063.3.579.2.593 1991 Unknown [id number] 2.16.840.1.141304.3.579.2.593 1991 Unknown [id number] 2.16.840.1.285694.3.579.2.593 1991 Unknown [id number] 2.16.840.1.928658.3.579.2.593 1991 Unknown [id number] 2.16.840.1.245615.3.579.2.593 1991 Unknown [id number] 2.16.840.1.753349.3.579.2.593 1991 Unknown [id number] 2.16.840.1.584778.3.579.2.593 1991 Unknown [id number] 2.16.840.1.244021.3.579.2.727 1991 Unknown [id number] 2.16.840.1.242680.3.579.2.727 1991 Unknown [id number] 2.16.840.1.352517.3.579.2.727 1991 Unknown [id number] 2.16.840.1.208767.3.579.2.727 1991 Unknown [id number] 2.16.840.1.614575.3.579.2.1259 1958 Medicaid [id number] 1958 Self-pay [id number] 1958 Unknown [id number] Unknown [id number] 2.16.840.1.247393.3.579.2.531 Social History Date Type Detail Facility Tobacco smoking status [facility] Tobacco smoking consumption unknown [facility] Start: 1991 Sex Assigned At Not on file [facility] Start: 08-20-2021 End: 03-20-2023 Tobacco smoking status Never smoked tobacco (finding) [facility] Tobacco smoking status Never [facility] Sex Assigned At Female [facility] Functional Status Date Assessment Result Facility 03-20-2023 Functional Status N/A [facility] Clinical Notes 07-03-2022 to 03-20-2023 Daniel Santiago APRN.FLAVORING OIL FILTERER - 09/04/2022 7:40 AM EST Note Date & Type Note Facility 03-20-2023 Hospital Discharge instructions Follow Up Care 03/20/2023 11:51:58 With:IDALMIS BORDEN, Caesar Turner, URL Address: [address] [place] [address]- When: Unknown [facility] [place] 03-20-2023 Hospital Discharge instructions Patient Education [...] include: ?8 oz (237 mL) of milk, lxvidnh-vpaqzqyqhyzp-orkyt milk, and calcium-fortifiedfruit juice. Calcium-fortified means that [...] ?Spinach (cooked), rhubarb, beets, sweet potatoes, and Hong Konger chard. ?Peanuts. ?Potato chips, yemeni fries, and baked potatoes with skin on. ?Nuts and nut products. ?Chocolate. If you regularly take a diuretic medicine, make sure to eat at least 1 or 2 servings of fruits or vegetables that are high in potassium each day. These include: ?Avocado. ?Banana. ?Turner, prune, carrot, or tomato juice. ?Baked potato. [...] magnesium, fish oil, or vitamin B6. Take pins-zwj-gxznnxb and prescription medicines only as told by [...] Casseroles. Pizza. Lasagna. Frozen meals. Potato chips. Tanzanian fries. The items listed above may not [...] provider. Document Revised: 06/16/2022 Document Reviewed: 06/16/2022 [employer] Patient Education 2022 [employer]. Follow Up Care 12/26/2022 08:46:46 With:IDALMIS BORDEN, Caesar Turner, URL Address: [facility] [address], [place] [address]- When: Unknown [facility] 11-07-2022 Note OPERATIVE NOTE OPERATION DATE: 11/07/2022 PROCEDURE: Mery endometrial ablation with LEEP. PREOPERATIVE DIAGNOSIS: Cervical dysplasia, menorrhagia. POSTOPERATIVE DIAGNOSIS: Cervical dysplasia, menorrhagia. ANESTHESIA: General. SURGEON: Tomasz Gibbs D.O. FACILITIES ENGINEER: None. BLOOD LOSS: 50 mL. URINE OUTPUT: [...] to Recovery Room in stable condition. [facility] 09-25-2022 Hospital Discharge instructions Follow Up Care 09/25/2022 13:54:04 With:IDALMIS BORDEN, Caesar Turner, ALDOL Address: [address] [place] [address]- When: Unknown [facility] 09-18-2022 Note OPERATIVE NOTE OPERATION DATE: [...] usual fashion. I started by passing a 22-Tanzanian Olympus cystoscope per urethra and into the [...] removed. She was then transferred to a [place] and wheeled to PACU in stable condition. [facility] 09-04-2022 Note HNO ID: [id number] Author: Daniel Santiago APRN.FLAVORING OIL FILTERER Service: ? Author Type: Nurse Practitioner Type: Progress Notes Filed: 09/04/2022 7:46 AM Note Text: The patient did not show up for this appointment. The patient did not show up for this appointment. [facility] 09-04-2022 History of Present illness Narrative The patient did not show up for this appointment. The patient did not show up for this appointment. documented in this encounter [facility] 07-03-2022 Note PROCEDURE: XR ANKLE LT MIN 3 V COMPARISON: None. HISTORY: Sprain of calcaneofibular ligament FINDINGS: BONES:No fracture, acute abnormality, or significant arthropathy. SOFT TISSUES:Extensive lateral soft tissue swelling EFFUSION:None visible. OTHER: Negative. IMPRESSION: Lateral soft tissue swelling. No acute fracture Electronically authenticated by: GLEN GRAFF Date: 2022-07-03 07:09 [facility] Evaluation + Plan note Future Appointments Appointment Date:03/20/2023 10:15:00 AM Scheduled Provider:Caesar VILLA MD Location:[facility] Appointment Type:URO Office Visit [facility] Evaluation + Plan note Future Appointments Appointment Date:12/04/2023 09:45:00 AM Scheduled Provider:Caesar VILLA MD Location:[facility] Appointment Type:URO Office Visit Diagnostic Tests PendingElectrolyte Panel 03/20/23 [facility] Evaluation note Diagnosis NO SHOW- Primary [facility] Narrative No data available for this section [facility] progress note No data available for this section [facility] Summary Purpose Family History No Family [...] prosecute any alcohol or drug abuse patient.[facility] Reason for Visit (unrecogniz ed section and content) Reason Onset Date Comments No Show 09/04/2022 No show Care Teams (unrecognized sec tion and content) Supervisor Contact Lens Relationship Specialty Start Date End Date Domingo Das MD [address] [place] [address] Referring Family Medicine 09/01/22 INFORMATION SOURCE (unrecogn ized section and content) DATE CREATED AUTHOR 09/06/2022 [facility] DATE CREATED AUTHOR AUTHOR'S ORGANIZ ATION 02/19/2023 [facility] DATE CREATED AUTHOR AUTHOR'S ORGANIZ ATION 12/06/2023 [facility] DATE CREATED AUTHOR AUTHOR'S ORGANIZ ATION 12/19/2023 [facility] DATE CREATED AUTHOR AUTHOR'S ORGANIZ ATION 12/30/2023 [facility] FOR RECORDS PERTAINING TO PATIENTS WHO ARE [...] BE BASED ON THE PRIMARY CLINICAL RECORDS. [facility], [facility]. provides no warranty or guarantee of the accuracy or completeness of information in this document.
[2024-02-28] MEDS: ONDANSETRON PF 4 MG/2 ML VIAL IV (10:08)
[2024-02-28] MEDS: MORPHINE SULFATE 4 MG/ML VIAL IV (10:08)
[2024-02-28 10:10] LABS: Bilirubin Urine NEGATIVE (NEGATIVE); Blood Urine TRACE-I (NEGATIVE); Clarity Urine CLEAR (CLEAR); Color Urine LT. YELLOW (YELLOW); Glucose Urine UA NEGATIVE (NEGATIVE); Ketones Urine NEGATIVE (NEGATIVE); Leukocyte Esterase Urine NEGATIVE (NEGATIVE); Nitrite Urine NEGATIVE (NEGATIVE); Protein Urine NEGATIVE (NEG/TRACE); Urobilinogen Urine 0.2 EU/dL (0.2-1.0); pH Urine 6.5 (5.0-9.0)
[2024-02-28 10:13] LABS: Basophils Absolute Auto 0.1 10^3/uL (0.0-0.1); Basophils Percent Auto 0.9 % (0.2-2.0); Eosinophils Absolute Auto 0.1 10^3/uL (0.0-0.7); Eosinophils Percent Auto 0.9 % (0.9-7.0); Hematocrit 40.8 % (36.0-48.0); Hemoglobin 13.2 g/dL (12.0-16.0); Immature Granulocytes Abs Auto 0.02 10^3/uL (0.00-0.03); Immature Granulocytes Pct Auto 0.3 % (0.0-0.5); Lymphocytes Percent Auto 30.6 % (20.5-60.0); Mean Corpuscular HGB Conc 32.4 g/dL (29.9-35.2); Mean Corpuscular Volume 86.4 fL (81.0-99.0); Mean Platelet Volume 9.3 fL (9.5-13.5); Monocytes Absolute Auto 0.5 10^3/uL (0.3-0.8); Monocytes Percent Auto 7.7 % (1.7-12.0); Neutrophils Percent Auto 59.6 % (43.0-75.0); Platelet Count 329 10^3/uL (150-450); Red Blood Count 4.72 10^6/uL (4.20-5.40); Red Cell Distribution Width 13.4 % (11.0-15.0); White Blood Count 6.6 10^3/uL (4.0-11.0)
[2024-02-28 10:18] LABS: Bacteria Urine NONE SEEN #/HPF (NONE SEEN); Cast Seen? NONE SEEN #/LPF (NONE SEEN); Crystals Seen? None Seen #/HPF (None Seen); Mucus Urine TRACE (NONE SEEN); RBC Urine 0-2 #/HPF (0-2); Squamous Epithelial Cell Urine RARE #/LPF (NONE/RARE); WBC Urine 0-2 #/HPF (NONE SEEN)
[2024-02-28 10:20] LABS: Anion Gap 9.8; BUN Creatinine Ratio 10.1; Calcium 9.2 mg/dL (8.5-10.1); Carbon Dioxide 28.2 mmol/L (21.0-32.0); Chloride 104 mmol/L (98-107); Estimated GFR (African America >60 (>=60); Estimated GFR (Non-African Ame >60 (>=60); Glucose 96 mg/dL (74-106); Sodium 138 mmol/L (136-145)
[2024-02-28 11:12] VITALS: BP 110/72; PULSE 69; O2SAT 98
== END 2024-02-28 11:26 | disposition home or self-care (01) ==
PROVIDERS: Emergency Provider Emergency Medicine; PCP Family Medicine
DX: R10.9 Unspecified abdominal pain (principal); Z87.442 Personal history of urinary calculi; F41.8 Other specified anxiety disorders; F31.9 Bipolar disorder, unspecified; Z90.49 Acquired absence of other specified parts of digestive tract
CPT/HCPCS: 36415; 80048; 81001; 85025; 96374; 96375; 99284

== ENCOUNTER 2024-04-08 14:15 | Emergency (ER) | payer OTHER, SELFPAY ==
[2024-04-08 14:17] VITALS: BP 142/99; PULSE 108; TEMP 36.7; O2SAT 100; BMI 30.7
--- NOTE | 2024-04-08 14:29 | ECG_ITS ---
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
--- NOTE | 2024-04-08 14:31 | ED_ITS ---
HPI HPI - General Adult General Chief complaint: Psychiatric Symptoms Stated complaint: SUICIDAL Time Seen by Provider: 04/08/24 14:20 Source: patient and law enforcement Mode of arrival: law enforcement Limitations: no limitations History of Present Illness HPI narrative: Patient is a 33-year-old female presents to the ER via local police for evaluation of mental health. The patient has a history of depression, did speak with a counselor remote today through [place] states she has her actual first counseling appointment on April 27. She has been in marriage counseling for 6 months, and it is going as well as it can be. She admits to sending her a text message stating that she did not want to be here anymore . Has no plan of suicide, is not homicidal. She reports having young children and is mostly concerned about missing her sons play this evening at 530. Patient told PD I do not have the luxury of killing myself because I have to care for my children. Patient denies any chest pain or shortness of breath. She reports prior bouts with mental health and 10 years ago had a overdose attempt with pills. Even at that time I did not take enough to actually harm myself. Patient cooperative at the bedside. Patient feels that her is supportive at home. Related Data Home Medications ?Medication ?Instructions ?Recorded ?Confirmed No Known Home Medications 04/08/24 04/08/24 Allergies Allergy/AdvReac Type Severity Reaction Status Date / Time No Known Drug Allergies Allergy Verified 04/08/24 14:16 Opioid HPI Opioid Management Most Recent Opioid Data: 2 Last Pain Scale 6 02/28/24 11:09 Ur Phencyclidine Scrn Negative (NEGATIVE) 04/08/24 15:00 Review of Systems ROS Constitutional Denies: fever or chills Eyes Denies: change in vision or blurry vision Ears, nose, mouth, and throat Denies: throat pain, neck pain or throat swelling Cardiovascular Denies: chest pain or palpitations Respiratory Denies: shortness of breath or cough Gastrointestinal Denies: abdominal pain, nausea or vomiting Genitourinary Denies: painful urination or urinary frequency Musculoskeletal Denies: back pain, neck pain or extremity pain Integumentary/Breast Denies: rash or itching Neurological Denies: headache Psychiatric Denies: anxiety or mood swings Endocrine Denies: excessive urination or excessive thirst [facility] Medical History (Updated 04/08/24 @ 14:38 by VARSHA Barnes) Anxiety and depression ?F41.9 - Anxiety disorder, unspecified (ICD-10) ?F32.A - Depression, unspecified (ICD-10) Kidney stones ?N20.0 - Calculus of kidney (ICD-10) Bipolar disorder ?F31.9 - Bipolar disorder, unspecified (ICD-10) Kidney stones ?N20.0 - Calculus of kidney (ICD-10) Surgical History (Updated 12/29/23 @ 08:54 by Chrissy Montilla) History of ultrasound guided needle biopsy ?Z98.890 - Other specified postprocedural states (ICD-10) H/O local excision of skin lesion ?Z98.890 - Other specified postprocedural states (ICD-10) S/P extracorporeal shock wave therapy (03/2023) ?Z98.890 - Other specified postprocedural states (ICD-10) History of wisdom tooth extraction ?K08.409 - Partial loss of teeth, unspecified cause, unspecified class (ICD- 10) H/O LEEP ?Z98.890 - Other specified postprocedural states (ICD-10) History of endometrial ablation ?Z98.890 - Other specified postprocedural states (ICD-10) S/P cystoscopy ?Z98.890 - Other specified postprocedural states (ICD-10) S/P ureteral stent placement ?Z96.0 - Presence of urogenital implants (ICD-10) H/O ureteroscopy ?Z98.890 - Other specified postprocedural states (ICD-10) History of cholecystectomy ?Z90.49 - Acquired absence of other specified parts of digestive tract (ICD- 10) Family History (Updated 03/30/23 @ 10:56 by Natalee Jules) Other Family history of hypertension Social History (Updated 04/24/23 @ 10:12 by Valencia Chavez NP) Within the past year, how often did you have a drink containing alcohol: monthly or less Smoking status: Never smoker Non-prescribed substance use: denies use 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 General: The patient appears well, tearful. Patient is resting comfortably on cart. Skin: Warm, dry, no pallor noted. There is no rash noted. Head: Normocephalic, atraumatic Eye: Normal conjunctiva, no drainage, EOMI. PERRL Ears, Nose, Mouth, and Throat: oral mucosa is moist. Nares patent. Mouth without vesicles. Ear canals patent. Cardiovascular: Regular Rate and Rhythm Respiratory: Patient is in no distress, no accessory muscle use, lungs are clear to auscultation, no wheezing, rales or rhonchi Back: non-tender, no CVA tenderness bilaterally to percussion. GI: Normal bowel sounds, no tenderness to palpation, no masses appreciated. No rebound, guarding, or rigidity noted. Musculoskeletal: The patient has no evidence of calf tenderness, no pitting edema, symmetrical pulses noted bilaterally Neurological: A&O x4, normal speech Psychiatric: Cooperative Constitutional Vital Signs, click to edit/add: Last Vital Signs Temp 98.1 F 04/08/24 14:17 Pulse 108 H 04/08/24 14:17 Resp 16 04/08/24 14:17 BP 142/99 H 04/08/24 14:17 Pulse Ox 100 04/08/24 14:17 O2 Del Method Room Air 04/08/24 14:17 Course Vital Signs Vital signs: Vital Signs Temperature 98.1 F 04/08/24 14:17 Pulse Rate 108 H 04/08/24 14:17 Respiratory Rate 16 04/08/24 14:17 Blood Pressure 142/99 H 04/08/24 14:17 Pulse Oximetry 100 04/08/24 14:17 Oxygen Delivery Method Room Air 04/08/24 14:17 Temperature 98.1 F 04/08/24 14:17 Pulse Rate 108 H 04/08/24 14:17 Respiratory Rate 16 04/08/24 14:17 Blood Pressure 142/99 H 04/08/24 14:17 Pulse Oximetry 100 04/08/24 14:17 Oxygen Delivery Method Room Air 04/08/24 14:17 Medical Decision Making MDM Narrative Medical decision making narrative: Patient admits to history of depression, she is enrolling herself in counseling, not currently taking any medication. Admits to sending the text message to her which the marriage counselor saw and contacted police for evaluation. The patient denies feeling suicidal or homicidal at this time. Admits that she is under immense stress at home, and is looking forward to her counselor meeting on April 27. We discussed medical clearance and evaluation with local mental health professional to discuss either recommendation for admission or safety plan. Patient is mostly concerned about missing a child's play this evening at 5:30 PM. Patient declines the need for any medication at this time. Patient spoke with a counselor over the phone, who then talked with patient's . She is coming to the bedside to evaluate the patient to discuss safety plan versus further evaluation for placement. Patient has been calm and cooperative. Therapist on tablet for face to Face at 4:48pm After further discussion with the therapist, we are unable to establish a safety plan to home with the not willing to sign off. Reports prior h ospitalization 2 years ago under similar circumstances after things escalated in the home. At this time mental health is recommending placement and pink slip for compliance.Given the patient's clinical history, previous attempt, feeling overwhelmed with depression, not her own medications and recently reestablished with counseling, recommend further mental health treatment. Patient is medically cleared for psychiatric evaluation and hospitalization. SHARED APC VISIT, PHYSICIAN ATTESTATION: [id number] I performed a substantive part of the MDM during the patient?s E/M visit. I personally evaluated and examined the patient. I personally made or approved the documented management plan and acknowledge its risk of complications. My (EKG/X-Ray/US/CT) interpretation . Management/test interpretation discussed with . Lab Data Lab results reviewed: Yes I reviewed the patient's lab results Labs: Lab Results 04/08/24 04/08/24 Range/Units 14:45 15:00 WBC 6.5 (4.0-11.0) 10^3/uL RBC 4.61 (4.20-5.40) 10^6/uL Hgb 12.8 (12.0-16.0) g/dL Hct 38.1 (36.0-48.0) % MCV 82.6 (81.0-99.0) fL MCH 27.8 (26.7-34.0) pg MCHC 33.6 (29.9-35.2) g/dL RDW 12.7 (11.0-15.0) % Plt Count 331 (150-450) 10^3/uL MPV 9.5 (9.5-13.5) fL Neut % (Auto) 55.6 (43.0-75.0) % Lymph % (Auto) 34.5 (20.5-60.0) % [place] % (Auto) 8.4 (1.7-12.0) % Eos % (Auto) 0.5 L (0.9-7.0) % Baso % (Auto) 0.8 (0.2-2.0) % Neut # (Auto) 3.6 (1.4-6.5) 10^3/uL Lymph # (Auto) 2.2 (1.2-3.8) 10^3/uL [place] # (Auto) 0.5 (0.3-0.8) 10^3/uL Eos # (Auto) 0.0 (0.0-0.7) 10^3/uL Baso # (Auto) 0.1 (0.0-0.1) 10^3/uL Abs Immat Gran (auto) 0.01 (0.00-0.03) 10^3/uL Imm/Tot Granulo (auto) 0.2 (0.0-0.5) % Sodium 140 (136-145) mmol/L Potassium 3.5 (3.5-5.1) mmol/L Chloride 105 (98-107) mmol/L Carbon Dioxide 27.5 (21.0-32.0) mmol/L Anion Gap 11.0 BUN 7.0 (7.0-18.0) mg/dL Creatinine 0.84 (0.55-1.02) mg/dL Est GFR ( Amer) >60 (>=60) Est GFR (Non-Af Amer) >60 (>=60) BUN/Creatinine Ratio 8.3 Glucose 106 (74-106) mg/dL Calcium 9.0 (8.5-10.1) mg/dL Total Bilirubin 0.3 (0.2-1.0) mg/dL AST 15 (15-37) U/L ALT 27 (14-59) U/L Alkaline Phosphatase 69 (46-116) U/L Total Protein 7.3 (6.4-8.2) g/dL Albumin 3.6 (3.4-5.0) g/dL Globulin 3.7 g/dL Albumin/Globulin Ratio 1.0 HCG, Quant <1 mIU/mL Urine Color Lt. yellow (YELLOW) Urine Clarity Clear (CLEAR) Urine pH 7.0 (5.0-9.0) Ur Specific [place] 1.010 (1.005-1.025) Urine Protein Negative (NEG/TRACE) mg/dL Urine Glucose (UA) Negative (NEGATIVE) mg/dL Urine Ketones Negative (NEGATIVE) mg/dL Urine Occult Blood Trace-i (NEGATIVE) Urine Nitrite Negative (NEGATIVE) Urine Bilirubin Negative (NEGATIVE) Urine Urobilinogen 0.2 (0.2-1.0) EU/dL Ur Leukocyte Esterase Negative (NEGATIVE) Urine RBC 0-2 (0-2) #/HPF Urine WBC None seen (NONE SEEN) #/HPF Ur Squamous Epith Cells Few A (NONE/RARE) #/LPF Urine Crystals Seen A (None Seen) #/HPF Amorphous Sediment Few Urine Bacteria None seen (NONE SEEN) #/HPF Urine Mucus Small A (NONE SEEN) Ur Culture Indicated? No Salicylates <2.8 (<=19.9) mg/dL Urine Opiates Screen Negative (NEGATIVE) Ur Buprenorphine Scrn Negative (NEGATIVE) Ur Oxycodone Screen Negative (NEGATIVE) Urine Methadone Screen Negative (NEGATIVE) Acetaminophen <2.0 L (10.0-30.0) ug/mL Ur Barbiturates Screen Negative (NEGATIVE) U Tricyclic Antidepress Negative (NEGATIVE) Ur Phencyclidine Scrn Negative (NEGATIVE) Ur Amphetamines Screen Negative (NEGATIVE) U Methamphetamines Scrn Negative (NEGATIVE) U Benzodiazepines Scrn Negative (NEGATIVE) Urine Cocaine Screen Negative (NEGATIVE) U Cannabinoids Screen Positive A (NEGATIVE) Ethanol Quant <3 mg/dL ECG Data Attestation: I personally reviewed and interpreted this ECG as follows: Interpretation: EKG interpretation: Emergency Department physician interpretation, normal sinus rhythm 79bpm, no ectopy, no ST segment elevation, normal axis. Discharge Plan Discharge Chief Complaint: Psychiatric Symptoms Clinical Impression: Depression Patient Disposition: [facility] Time of Disposition Decision: 18:14 Discharge Location: [facility] Discharge location: [address] [place] [address] Condition: Good Mode of Transportation: Mental Health Car Prescriptions / Home Meds: No Action No Known Home Medications Print Language: Yakut Instructions: Depression (ED) Additional Instructions: Mag? [facility] is available 8 AM to Midnight every day?at?[phone]). Referrals: Ignacio Das MD [Primary Care Provider] - 1 week
[2024-04-08 14:53] LABS: Basophils Absolute Auto 0.1 10^3/uL (0.0-0.1); Basophils Percent Auto 0.8 % (0.2-2.0); Eosinophils Percent Auto 0.5 % (0.9-7.0); Hematocrit 38.1 % (36.0-48.0); Hemoglobin 12.8 g/dL (12.0-16.0); Immature Granulocytes Abs Auto 0.01 10^3/uL (0.00-0.03); Immature Granulocytes Pct Auto 0.2 % (0.0-0.5); Lymphocytes Absolute Auto 2.2 10^3/uL (1.2-3.8); Lymphocytes Percent Auto 34.5 % (20.5-60.0); Mean Corpuscular HGB Conc 33.6 g/dL (29.9-35.2); Mean Corpuscular Hemoglobin 27.8 pg (26.7-34.0); Mean Corpuscular Volume 82.6 fL (81.0-99.0); Mean Platelet Volume 9.5 fL (9.5-13.5); Monocytes Absolute Auto 0.5 10^3/uL (0.3-0.8); Monocytes Percent Auto 8.4 % (1.7-12.0); Neutrophils Absolute Auto 3.6 10^3/uL (1.4-6.5); Neutrophils Percent Auto 55.6 % (43.0-75.0); Platelet Count 331 10^3/uL (150-450); Red Blood Count 4.61 10^6/uL (4.20-5.40); Red Cell Distribution Width 12.7 % (11.0-15.0); White Blood Count 6.5 10^3/uL (4.0-11.0)
[2024-04-08 15:25] LABS: Alanine Aminotransferase 27 U/L (14-59); Albumin Level 3.6 g/dL (3.4-5.0); Alkaline Phosphatase 69 U/L (46-116); Aspartate Amino Transferase 15 U/L (15-37); BUN Creatinine Ratio 8.3; Bilirubin Total 0.3 mg/dL (0.2-1.0); Carbon Dioxide 27.5 mmol/L (21.0-32.0); Chloride 105 mmol/L (98-107); Estimated GFR (African America >60 (>=60); Estimated GFR (Non-African Ame >60 (>=60); Globulin 3.7 g/dL; Glucose 106 mg/dL (74-106); Potassium 3.5 mmol/L (3.5-5.1); Sodium 140 mmol/L (136-145); Total Protein 7.3 g/dL (6.4-8.2)
[2024-04-08 15:31] LABS: Ethanol <3 mg/dL; Salicylate <2.8 mg/dL (<=19.9)
[2024-04-08 15:36] LABS: Bilirubin Urine NEGATIVE (NEGATIVE); Blood Urine TRACE-I (NEGATIVE); Clarity Urine CLEAR (CLEAR); Color Urine LT. YELLOW (YELLOW); Glucose Urine UA NEGATIVE (NEGATIVE); Ketones Urine NEGATIVE (NEGATIVE); Leukocyte Esterase Urine NEGATIVE (NEGATIVE); Nitrite Urine NEGATIVE (NEGATIVE); Protein Urine NEGATIVE (NEG/TRACE); Urobilinogen Urine 0.2 EU/dL (0.2-1.0)
[2024-04-08 15:39] LABS: Acetaminophen <2.0 ug/mL (10.0-30.0); HCG Quantitative <1 mIU/mL
[2024-04-08 15:45] LABS: Urine Microscopic Indicated YES
[2024-04-08 15:47] LABS: WBC Urine NONE SEEN #/HPF (NONE SEEN)
[2024-04-08 15:48] LABS: Amorphous Sediment Urine FEW; Bacteria Urine NONE SEEN #/HPF (NONE SEEN); Crystals Seen? Seen #/HPF (None Seen); Mucus Urine SMALL (NONE SEEN); RBC Urine 0-2 #/HPF (0-2); Squamous Epithelial Cell Urine FEW #/LPF (NONE/RARE)
[2024-04-08 15:50] LABS: Urine Culture Indicated NO
[2024-04-08 15:51] LABS: Amphetamine Screen Urine NEGATIVE (NEGATIVE); Barbiturates Screen Urine NEGATIVE (NEGATIVE); Benzodiazepines Screen Urine NEGATIVE (NEGATIVE); Cannabinoid Screen Urine POSITIVE (NEGATIVE); Cocaine Screen Urine NEGATIVE (NEGATIVE); Methadone Screen Urine NEGATIVE (NEGATIVE); Methamphetamines Screen Urine NEGATIVE (NEGATIVE); Opiate Screen Urine NEGATIVE (NEGATIVE); Oxycodone Screen Urine NEGATIVE (NEGATIVE); Phencyclidine Screen Urine NEGATIVE (NEGATIVE); Tricyclic Antidepressant Urine NEGATIVE (NEGATIVE)
[2024-04-08 15:52] LABS: Buprenorphine Screen Urine NEGATIVE (NEGATIVE)
== END 2024-04-08 20:35 ==
PROVIDERS: Personal Emergency Response Attendant; Emergency Provider Emergency Medicine; PCP Family Medicine
DX: F32.A Depression, unspecified (principal)
CPT/HCPCS: 36415; 80053; 80179; 80307; 80320; 80329; 81001; 84702; 85025; 93005; 99285

== ENCOUNTER 2024-04-20 22:36 | Emergency (ER) | payer OTHER, SELFPAY ==
[2024-04-20 22:43] VITALS: BP 150/91; PULSE 80; TEMP 36.7; O2SAT 96; BMI 30.7
--- OUTSIDE RECORDS SUMMARY | 2024-04-20 22:45 | XMS_ITS | CCD ---
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 Name Role Phone Domingo Das MD Unavailable DANIEL SANTIAGO Attending Unavailable DOMINGO DAS Referring Unavailable Domingo Das Primary Care Physician LILLIAN ., DR LANE Primary Care Unavailable BERNIE ., DR TOLBERT Admitting Unavailable BERNIE ., DR TOLBERT Attending Unavailable SILVERIO, DR ERWIN Turner Consulting Unavailable SILVERIO, DR ERWIN Turner Attending Unavailable RICHY ., DR LANE Primary Care Unavailable SILVERIO, DR ERWIN Turner Admitting Unavailable ERICKA IGLESIAS Consulting Unavailable VARUN ., ORA Consulting Unavailable VARUN ., ORA Attending Unavailable HOY ., DR LANE Primary Care Unavailable VARUN ., ORA Admitting Unavailable VILLA ., DR CASTELLANO Admitting Unavailable VILLA ., DR CASTELLANO Consulting Unavailable VILLA ., DR CASTELLANO Attending Unavailable HOY ., DR LAEN Primary Care Unavailable HOY ., DR LANE [...] Unavailable HOY ., DR LANE Admmanpreet Unavailable DAJUAN, DR GLEN Alford Consulting Unavailable LILLIAN ., DR LANE Primary Care [...] Unavailable BERNIE ., DR TOLBERT Consulting Unavailable BALWINDER DUNAWAY [...] Unavailable BERNIE ., DR TOLBERT Consulting Unavailable Nona VILLA Attending Unavailable VILLANona Attending Unavailable VILLANona R Attending Unavailable VILLANona Attending Unavailable CELIO VAN Attending Unavailable MD Domingo Das Primary Care Provider [phone] MD Arnulfo Aviles Admit Provider MD Arnulfo Aviles Attending Provider Arnulfo Aviles Admitting Unavailab Arnulfo Forrest Attending Unavailab Domingo Rosen Primary Care Unavailable Glen Graff V Admitting Unavailable Glen Graff V Attending Unavailable Domingo Das Primary Care Unavailable Medications Current Medications Medication Drug Class(es) Dates Sig (Normalized) Sig (Original) benztropine mesylate 1 mg oral tablet (2 sources) Anticholinergic, Antihistamine Start: 12-24-2022 benztropine 1 mg Tab Refills(s) 0 Start Date: 12/24/22 Status: Ordered Start: 08-13-2022 End: 08-16-2022 take 1 mg by mouth twice daily Benztropine Discontinue d 1 MG PO Twice daily August 13, 2022 12:00am August 16, 2022 11:38am busPIRone hydrochloride 7.5 mg oral tablet (2 sources) Start: 12-24-2022 busPIRone 7.5 mg oral tablet Refills(s) 0 Start Date: 12/24/22 Status: Ordered Start: 08-13-2022 End: 08-16-2022 take 30 mg by mouth twice daily Buspirone Discontinued 30 MG PO Twice daily August 13, 2022 12:00am August 16, 2022 11:38am citalopram 10 mg oral tablet (2 sources) Serotonin Reuptake Inhibitor Start: 12-24-2022 citalopram 10 mg Tab Refills(s) 0 Start Date: 12/24/22 Status: Ordered Start: 08-13-2022 End: 08-16-2022 take 20 mg by mouth twice daily Citalopram Discontinued 20 MG PO Twice daily August 13, 2022 12:00am August 16, 2022 11:38am hydrOXYzine pamoate 50 mg oral capsule (2 sources) Antihistamine Start: 12-24-2022 hydrOXYzine pa moate 50 mg Cap Refills(s) 0 Start Date: 12/24/22 Status: Ordered Start: 08-13-2022 End: 08-16-2022 take 50 mg by mouth three times daily Hydroxyzine Pamoate Discontinued 50 MG PO Three times daily August 13, 2022 12:00am August 16, 2022 11:38am [place] (No Known Home Meds) (1 source) Start: 04-08-2024 [place] (No Kn own Home Meds) Active April 08, 2024 12:00am OLANZapine 15 mg oral tablet (2 sources) Atypical Antipsychotic Start: 12-24-2022 olanzap ine 15 mg oral tablet Refills(s) 0 Start Date: 12/24/22 Status: Ordered Start: 08-13-2022 End: 08-16-2022 take 15 mg by mouth at bedtime Olanzapine Discontinued 15 MG PO Bedtime August 13, 2022 12:00am August 16, 2022 11:38am olanzapine 15 MG / samidorphan 10 MG Oral Tablet [Lybalvi] (2 sources) Start: 03-20-2023 Lybalvi 15 mg- 10 mg oral tablet Refill(s) 0 Start Date: 03/20/23 Status: Ordered QUEtiapine 100 mg oral tablet (2 sources) Atypical Antipsychotic Start: 12-24-2022 quetiap ine 100 mg Tab Refills(s) 0 Start Date: 12/24/22 Status: Ordered Start: 08-13-2022 End: 08-16-2022 take 150 mg by mouth at bedtime Quetiapine Discontinue d 150 MG PO Bedtime August 13, 2022 12:00am August 16, 2022 11:38am Completed/Discontinued Medications Medication Drug Class(es) Dates Sig (Normalized) Sig (Original) K-vescent 25 mEq oral tablet, effervescent (1 source) Start: 06-23-2023 take 1 tablet by mouth twice daily K-vescent 25 mEq oral tablet, effervescent 25 mEq = 1 tab(s), Oral, BID, # 30 tab(s), Refills(s) 3, Pharmacy: [facility]/pharmacy #[id number], 168, cm, 03/20/23 10:32:00 [...] W/REG CYCL] Onset: 11-04-2022 Chronic Mood disorders (7 sources) Major depressive disorder, single episode, unspecified; Translations: [Major depressive disorder, recurrent, unspecified] Onset: 08-14-2022 03-20-2023 Chronic Nausea and vomiting (4 sources) Nausea with vomiting, unspecified; Translations: [NAUSEA WITH VOMITING UNSPECIFIED] Onset: 02-16-2023 Episodic Other aftercare (1 source) 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; Translations: [OTH [facility] CURRENT DRUG THERAPY] Onset: 02-18-2023 Episodic Other aftercare (1 source) [facility] (current) use of oral hypoglycemic drugs; Translations: [[facility] USE ORAL HYPOGLYCEMIC DX] Onset: 02-18-2023 Episodic [...] OTH PART DIGESTV TRACT] Onset: 02-18-2023 Episodic Suicide and intentional self-inflicted injury (5 sources) Suicidal ideations; Translations: [Suicidal thoughts] Onset: 08-13-2022 Episodic Unclassified (1 source) NO SHOW Unclassified [...] LIG LT ANK INIT] Onset: 07-02-2022 Episodic Results Test Name Value Interpretation Reference Range Facility Cholesterol [Mass/volume] in Serum or PlasmaOrdered By: Arnulfo Aviles on 04-09-2024 Cholesterol [Mass/Vol] 150 mg/dL Normal 140-200 [facility] Comment on above: Chol less than 200 m g/dl low riskChol 201-239 mg/dl borderline riskChol 240 mg/dl and greater high risk Result Comment: Chol less than 200 mg/dl low risk Chol 201-239 mg/dl borderline risk Chol 240 mg/dl and greater high risk Performed By: #### L IPID, TSH3 wRFLX, [id number] #### [facility] [address] Cholesterol in LDL Calc [Mas s/Vol]Ordered By: Arnulfo Aviles on 04-09-2024 Cholesterol in LDL [Mass/Vol] 90 mg/dL 0-[address] [facility] Comment on above: LDL ATP III CLASSIFI CATIONLDL less than 100 mg/dL OptimalLDL 100-129 mg/dL Near or above optimalLDL 130-159 mg/dL Borderline highLDL 160-189 mg/dL HighLDL greater than 189 mg/dL Very high Cholesterol in VLDL Calc [Ma ss/Vol]Ordered By: Arnulfo Aviles on 04-09-2024 Cholesterol in VLDL [Mass/Vol] 16 mg/dL [facility] ECG 12 lead ECGon 04-09-2024 ECG 12 lead ECG [facility] [address] [place] [address] Electrocardiograph Report Signed Patient: Diana Barriga MR#: [id number] : 1990 Acct:[id number] Age/Sex: 33 / F ADM Date: 04/08/24 Loc: Room: [address] [place] [address] Type: ADM IN Attending Dr: Arnulfo Aviles MD Ordering Provider: Arnulfo Aviles MD Date of Service: 04/09/24 ECG/ECG 12 lead ECG: baseline for psych meds Copies to: Test Reason : Blood Pressure : / mmHG Vent. Rate : 071 BPM Atrial Rate : 071 BPM P-R Int : 148 ms QRS Dur : 078 ms QT Int : 416 ms P-R-T Axes : 028 041 047 degrees QTc Int : 452 ms Normal sinus rhythm Normal ECG No previous ECGs available Confirmed by DENTON BORDEN FACNONA ([id number]) on 04/09/2024 3:21:42 PM Referred By: Electronically Signed By:NONA CHAWLA MD [facility] Transcribed By: MUS Signed By Lg Chawla MD 04/09/24 1521 Normal [facility] Lipid Panelon 04-09-2024 LDL Cholesterol,Calculated 90 mg/dL Normal 0-100 [facility] Comment on above: Result Comment: LDL ATP III CLASSIFICATION LDL less than 100 mg/dL Optimal LDL 100-129 mg/dL Near or above optimal LDL 130-159 mg/dL Borderline high LDL 160-189 mg/dL High LDL greater than 189 mg/dL Very high Performed By: #### L IPID, TSH3 wRFLX, [id number] #### [address] Triglyceride w/Reflex 82 mg/dL Normal 0-149 [facility] Comment on above: Result Comment: TRIG ATP III CLASSIFICATION TRIG less than 150 mg/dL Normal TRIG 150-199 mg/dL Borderline high TRIG 200-500 mg/dL High TRIG greater than 500 mg/dL Very high Standard traceable to the Center for Disease Conrtrol and Prevention (CDC) test method. Performed By: #### L IPID, TSH3 wRFLX, [id number] #### [facility] [address] [id number] [facility] VLDL CHOLESTEROL 16 mg/dL Normal [facility] Comment on above: Performed By: #### L IPID, TSH3 wRFLX, [id number] #### [facility] [address] [id number] [facility] Serum or plasma high density lipoprotein (HDL) cholesterol measurementOrdered By: Arnulfo Aviles on 04-09-2024 Cholesterol in HDL [Mass/Vol] 44 mg/dL Normal 23-[address] [facility] Comment on above: HDL CHOL ATP-III CLA SSIFICATION Cardiovascular RiskHDL > or equal to 60 mg/dL LOWHDL < 40 mg/dL HIGH Result Comment: HDL CHOL ATP-III CLASSIFICATION Cardiovascular Risk HDL > or equal to 60 mg/dL LOW HDL < 40 mg/dL HIGH Performed By: #### L IPID, TSH3 wRFLX, [id number] #### [facility] [address] [place] [address] Serum or plasma total choles terol/high density lipoprotein (HDL) cholesterol mass ratOrdered By: Arnulfo Aviles on 04-09-2024 Cholesterol.total/Chol esterol in HDL [Mass ratio] 3.4 {ratio} Normal <5.[address] [facility] Comment on above: Performed By: #### L IPID, TSH3 wRFLX, [id number] #### [facility] [address] [place] [address] Thyroid Stim Hormone w/Rflxo n 04-09-2024 Thyroid Stim Hormone w/Rflx 2.01 u[iU]/mL Normal 0.45-5.33 [facility] Comment on above: Performed By: #### L IPID, TSH3 wRFLX, [id number] #### [facility] [address] [place] [address] Thyrotropin [Units/volume] i n Serum or PlasmaOrdered By: Arnulfo Aviles on 04-09-2024 TSH Qn 2.01 m[IU]/L 0.45-5.[address] [facility] Triglyceride [Mass/volume] i n Serum or PlasmaOrdered By: Arnulfo Aviles on 04-09-2024 Triglyceride [Mass/Vol] 82 mg/dL 0-[address] [facility] Comment on above: TRIG ATP III CLASSIF ICATIONTRIG less than 150 mg/dL NormalTRIG 150-199 mg/dL Borderline highTRIG 200-500 mg/dL High TRIG greater than 500 mg/dL Very highStandard traceable to the Center for Disease Conrtrol and Prevention (CDC) test method. Vitamin D 25 Hydroxy Totalon 04-09-2024 Vitamin D 25 Hydroxy Total 26.2 ng/mL Low 30-100 [facility] Comment on above: Result Comment: THA MIN D STATUS 25(OH)VITAMIN D RANGE (ng/mL) Deficient <20 Insufficient 20 to <30 Sufficient 30 to 100 Reference: Jennifer Tiwari Bischoff-Ferrari HA, et al. Evaluation,treatment, and prevention of vitamin D deficiency; an Endocrine Society clinical practice guideline. JCEM. 2010; 96(7):191-. PERFORMED BY: [facility] [address] [place] [address] PATHOLOGIST SLUDGE MILL OPERATOR AB ALCANTARA M.D. Performed By: #### L IPID, TSH3 wRFLX, [id number] #### [facility] [address] Vitamin D+Metabolites [Mass/ volume] in Serum or PlasmaOrdered By: Arnulfo Aviles on 04-09-2024 Vitamin D+Metabolites [Mass/Vol] 26.2 ng/mL 30-[address] [facility] Comment on above: VITAMIN D STATUS 25( [place])VITAMIN D RANGE (ng/mL) Deficient <20 Insufficient 20 to <30Sufficient 30 to 100Reference: Jennifer Tiwari Bischoff-Ferrari HA, et al. Evaluation,treatment, and prevention of vitamin D deficiency; an Endocrine Society clinical practice guideline. JCEM. 2010; 96(7):1911-30. Axel 12-29-2023 L Specimen: [id number] Received: 12/29/23 Status: DAQUAN Moon Num: [id number] Spec Type: Surgical Subm Dr: Glen Graff MD Tissues: A BREAST CORE NO CALCS (LT BREAST 6:00) Procedures: PAS - LGRN, HE/2, Gross/Micro L4, AE1-AE3, CD68 Age/ Patient Sex Location Account Attending Physician Diana Barriga 33/F [place]ELL [id number] Glen Graff MD SPEC NUM: [id number] RECD: 12/29/23 STATUS: DAQUAN MOON NUM: [id number] KELBY: 12/29/23- SUBM DR: Glen Graff MD ENTERED: 12/29/23 [facility] DR: Roula,Miles Buckleyalonso Laughlino SPEC TYPE: Surgical DEPT: MAX LEGGETT ORDERED: [...] formalin: 8:09 AM 12/29/2023, time out of ---- Specimen: [id number] Received: 12/29/23 Status: DAQUAN Moon Num: [id number] Spec Type: Surgical Subm Dr: Glen Graff MD Tissues: A BREAST CORE NO CALCS (LT BREAST 6:00) Procedures: PAS - LGRN, HE/2, Gross/Micro L4, AE1-AE3, CD68 ---- Patient: Diana Barriga [id number] (Continued) ---- Specimen: [id number] Received: 12/29/23 (Continued) Gross Description (Continued) Signed (signature on file) Swathi Dumas MD 12/30/23 1834 ---- Specimen: [id number] Received: 12/29/23 Status: DAQUAN Mono Num: [id number] Spec Type: Surgical Subm Dr: Glen Graff MD Tissues: A BREAST CORE NO CALCS (LT BREAST 6:00) Procedures: FIONA CORRAL, HE/2, Gross/Micro L4, AE1-AE3, CD68 ---- Patient: Diana Barriga [id number] (Continued) ---- Specimen: [id number] Received: 12/29/23 (Continued) Gross Description (Continued) formalin: 6 PM 12/29/2023. Cold Ischemia and Fixation Time meets the requirements specified in the latest version of the ASCO/CAP guidelines: Yes. Cold Ischemic Time: 0.03 Formalin Fixation Time: 9.85 CPT Codes 66504 [id number] ---- ---- Specimen: [id number] Received: 12/29/23 Status: DAQUAN Moon Num: [id number] Spec Type: Surgical Subm Dr: Glen Graff MD Tissues: A BREAST CORE NO CALCS (LT BREAST 6:00) Procedures: PAS - LGRN, HE/2, Gross/Micro L4, AE1-AE3, CD68 ---- Patient: SdRoss grigsbyDiana Boogie [id number] (Continued) ---- Signed (signature on file) Chin-Sae Dumas MD 12/30/231833 Normal [facility] Physician [facility] Patient Letter FTon 2023 Patient Letter [facility] December 04, 2023 DIANA BARRIGA [address] [place] [address] : 1990 Dear Diana, You missed your [...] [facility] [address], [place] [address] [facility] Lab Reportson 06-05-2023 Lab Reports [id number]#1.0 0CD:127 [facility] Reminderson 04-24-2023 Reminders - From: Whtiney Collier To: PATEL MADDOX - Results; Sent: 03/20/2023 12:53:35 EDT Show up: 04/17/2023 12:52:00 EDT Subject: Electrolyte panel Due Date/Time: 04/17/2023 12:52:00 EDT Pt should be getting electrolyte panel April 17 after starting HCTZ. Also has hx of low K but recent level was wnl. Please check for these results and once they are in, call the pt with the results. duplicate message [facility] Operative Reporton Operative Report [id number]#1.00 CD:127 [facility] RAD - MISCon 04-10-2023 RAD - MISC [id number]#1.0 0CD:127 [facility] Lab Reportson 04-06-2023 Lab Reports [id number]#1.0 0CD:127 [facility] Lab Reports [id number]#1.0 0CD:127 [facility] Lab Reportson 03-23-2023 Lab Reports [id number]#1.0 0CD:127 [facility] Lab Reports [id number]#1.0 0CD:127 [facility] Lab Reports [id number]#1.0 0CD:127 [facility] RAD - CT Reporton 03-23-2023 RAD - CT Report [id number]#1.0 0CD:127 [facility] RAD - CT Report [id number]#1.0 0CD:127 Normal [facility] Ambulatory Visit Summaryon 0 03-20-2023 Ambulatory Visit Summary DIANA BARRIGA :1990 Visit Date:03/20/2023 Ambulatory Visit Instructions Your Diagnosis Kidney stone Hypercalciuria History of kidney stones Hyperoxaluria Your Care Team Attending Physician - Nona VILLA MD Primary Care Physician - Domingo Das MD This Is Your Medications List Contact prescribing physician if questions or concerns olanzapine-samidorphan (Lybalvi 15 mg-10 mg oral tablet) Procedures [...] Following Appointments Follow Up with IDALMIS BORDEN, Nona Turner, DANYA When: Where: [facility] [address] [place] [address]- Medications What When Instructions Unchanged olanzapine-samidorphan (Lybalvi 15 mg-10 mg oral tablet) Contact [...] ? 8 oz (237 mL) of milk, zppfdbj-etughmokxhhb-h airy milk, and calcium-fortifiedfruit juice. Calcium-fortified means that [...] handful of b (more content not included)... [facility] Consent for Procedure/Surger yon 03-20-2023 Consent for Procedure/Surgery [id number]#1.0 0CD:127 [facility] Patient Educationon 03-20-20 23 [...] ? 8 oz (237 mL) of milk, mebjrwb-zmmiozvfsmpj-k airy milk, and calcium-fortifiedfruit juice. Calcium-fortified means that [...] Spinach (cooked), rhubarb, beets, sweet potatoes, and Bahamian chard. ? Peanuts. ? Potato chips, spanish fries, and baked potatoes with skin on. ? Nuts and nut products. ? Chocolate. ? If you regularly take a diuretic medicine, make sure to eat at least 1 or 2 servings of fruits or vegetables that are high in potassium each day. These include: ? Avocado. ? Banana. ? Lucan, prune, carrot, or tomato juice. ? Baked [...] fish oil, or vitamin B6. ? Take esii-etb-khnghwr and prescription medicines only as told by your health care provider. These include supplements. What foods should I limit? Limit your in (more content not included)... Normal [facility] Urology Office/Clinic Noteon 03-20-2023 Urology Office/Clinic [...] Lt kidney pain. Did got to the [place] ER. DX'd & treated for UTI. (NEG [...] L. Ox slightly elevated. Pt presented to [facility] ER on 03/06/23 due to L [...] mg qd. SEs discussed. Rx sent to [facility]. -Electrolyte panel 4 weeks to [...] Nona Turner, URL [facility] [address] [place] [address]- Additional Instructions: schedule R ESWL Patient Education [...] kidney s (more content not included)... Normal [facility] Comment on above: Result Comment: Elec tronically Signed By: Nona VILLA MD\.br\Date and Time Signed: 03/20/23 11:30 EDT\.br\Electronically Co-Signed By: Whitney Collier\.br\Date and Time Co-Signed: 03/20/23 11:28 EDT CBC AUTO DIFFon 02-16-2023 BASO # 0.1 103/ul Normal 0.0-0.1 [facility] Comment on above: Performed By: #### U KJ 24 #### [facility] [address] [place] [address] Dr. Ramses Dumas Basophils/100 WBC (Bld) 0.5 % Normal 0.2-2.0 [facility] Comment on above: Performed By: #### U KJ 24 #### [facility] [address] [address] [address] Ramses Dumas EO # 0.0 103/ul Normal 0.0-0.7 [facility] Comment on above: Performed By: #### U KJ 24 #### [facility] [address] [address] [address] Ramses Dumas Eosinophils/100 WBC (Bld) 0.4 % Critically low 0.9-7.0 [facility] Comment on above: Performed By: #### U KJ 24 #### [facility] [address] [place] [address] Dr. Ramses Dumas Erythrocyte distribution width (RBC) [Ratio] 13.7 % Normal 11.0-15.0 [facility] Comment on above: Performed By: #### U KJ 24 #### [facility] [address] [place] [address] Dr. Ramses Dumas Hematocrit (Bld) [Volume fraction] 45.1 % Normal 36.0-48.0 [facility] Comment on above: Performed By: #### U KJ 24 #### [facility] [address] [place] [address] Dr. Ramses Dumas Hemoglobin (Bld) [Mass/Vol] 14.3 g/dL Normal 12.0-16.0 [facility] Comment on above: Performed By: #### U KJ 24 #### [facility] [address] [place] [address] Dr. Ramses Dumas IG # 0.02 10e3/ul Normal 0.00-0.03 [facility] Comment on above: Performed By: #### U KJ 24 #### [facility] [address] [place] [address] Dr. Ramses Dumas IG % 0.2 % Normal 0.0-0.5 [facility] Comment on above: Performed By: #### U KJ 24 #### [facility] [address] [place] [address] Dr. Ramses Dumas LYMPH # 2.5 103/ul Normal 1.2-3.8 [facility] Comment on above: Performed By: #### U KJ 24 #### [facility] [address] [place] [address] Dr. Ramses Dumas Lymphocytes/100 WBC (Bld) 26.4 % Normal 20.5-60.0 [facility] Comment on above: Performed By: #### U KJ 24 #### [facility] [address] [place] [address] Dr. Ramses Dumas MANUAL DIFF REQ NO Normal [facility] Comment on above: Performed By: #### U KJ 24 #### [facility] [address] [place] [address] Dr. Ramses Dumas MCH (RBC) [Entitic mass] 25.6 pg Critically low 26.7-34.0 [facility] Comment on above: Performed By: #### U KJ 24 #### [facility] [address] [place] [address] Dr. Ramses uDmas MCHC (RBC) [Mass/Vol] 31.7 g/dL Normal 29.9-35.2 [facility] Comment on above: Performed By: #### U KJ 24 #### [facility] [address] [place] [address] Dr. Ramses Dumas MCV (RBC) [Entitic vol] 80.7 fL Critically low 81.0-99.0 [facility] Comment on above: Performed By: #### U KJ 24 #### [facility] [address] [place] [address] Dr. Ramses Dumas MONO # 0.7 103/ul Normal 0.3-0.8 [facility] Comment on above: Performed By: #### U KJ 24 #### [facility] [address] [place] [address] Dr. Ramses Dumas Monocytes/100 WBC (Bld) 7.6 % Normal 1.7-12.0 [facility] Comment on above: Performed By: #### U KJ 24 #### [facility] [address] [place] [address] Dr. Ramses Dumas NEUT # 6.1 103/ul Normal 1.4-6.5 [facility] Comment on above: Performed By: #### U KJ 24 #### [facility] [address] [place] [address] Dr. Ramses Dumas Neutrophils/100 WBC (Bld) 64.9 % Normal 43.0-75.0 [facility] Comment on above: Performed By: #### U KJ 24 #### [facility] [address] [place] [address] Dr. Ramses Dumas Platelet mean volume (Bld) [Entitic vol] 11.0 fL Normal 9.5-13.5 [facility] Comment on above: Performed By: #### U KJ 24 #### [facility] [address] [place], [place] [address] Dr. Ramses Dumas PLT 270 103/ul Normal 150-450 [facility] Comment on above: Performed By: #### U KJ 24 #### [facility] [id number] Ramses Dumas RBC 5.59 106/ul Critically high 4.20-5.40 [facility] Comment on above: Performed By: #### U KJ 24 #### [facility] [id number] Ramses Dumas WBC 9.4 103/ul Normal 4.0-11.0 [facility] Comment on above: Performed By: #### U KJ 24 #### [facility] [id number] ABD/PELV W CONon 02-17-20 CT ABD/PELV W CON EXAM: CT ABD/PELV W CON TECHNIQUE: Axial CT images were obtained of the abdomen and pelvis with intravenous contrast. Sagittal and coronal reformatted images were also obtained. Dose reduction techniques were achieved by using automated exposure control and/or adjustment of mA and/or kV according to patient size and/or use of iterative reconstruction technique. HISTORY: GENERALIZED ABDOMINAL PAIN COMPARISON: 08/28/2022 FINDINGS: Lower chest: The lower lungs are [...] inflammation. Abdominal wall: Small fat-containing umbilical hernia. ___ IMPRESSION: No acute abdominal pathology. No acute inflammatory process. No obstructing urinary tract stone. No evidence for bowel obstruction. Electronically authenticated by: FARTUN NOVOA Date: 2023-02-16 18:21 Normal [facility] ER URINE PROFILEon 3 Bilirubin Ql (U) SMALL Abnormal NEGATIVE [facility] Comment on above: Performed By: #### C MP #### [facility] [address] [place] [address] Dr. Ramses Dumas Clarity (U) CLEAR Normal CLEAR [facility] Comment on above: Performed By: #### C MP #### [facility] [address] [place] [address] Dr. Ramses Dumas Color (U) YELLOW Normal YELLOW [facility] Comment on above: Performed By: #### C MP #### [facility] [address] [address] [address] Ramses Dumas ERUCARLOS ENRIQUE A micrscopic examination will be performed if indicated. Normal [facility] Comment on above: Performed By: #### C MP #### [facility] [address] [address] [address] Ramses Dumas Glucose Ql (U) Negative Normal NEGATIVE [facility] Comment on above: Performed By: #### C MP #### [facility] [address] [address] [address] Ramses Dumas Hemoglobin Ql (U) Negative Normal NEGATIVE [facility] Comment on above: Performed By: #### C MP #### [facility] [address] [address] [address] Ramses Dumas Ketones Ql (U) 40 mg/dl Abnormal NEGATIVE [facility] Comment on above: Performed By: #### C MP #### [facility] [address] [place] [address] Dr. Ramses Dumas LEUKOCYTES SMALL Abnormal NEGATIVE [facility] Comment on above: Performed By: #### C MP #### [facility] [address] [place] [address] Dr. Ramses Dumas Nitrite Ql (U) Negative Normal NEGATIVE [facility] Comment on above: Performed By: #### C MP #### [facility] [address] [place] [address] Dr. Ramses Dumas pH (U) 7.0 [pH] Normal 5-9 [facility] Comment on above: Performed By: #### C MP #### [facility] [address] [place] [address] Dr. Ramses Dumas Protein (U) [Mass/Vol] 30 mg/dL Abnormal NEGAT CHRIS/ TRACE [facility] Comment on above: Performed By: #### C MP #### [facility] [address] [place] [address] Dr. Ramses Dumas SPEC GRAVITY 1.020 Normal 1.005-<=1.02 5 [facility] Comment on above: Performed By: #### C MP #### [facility] [address] [place] [address] Dr. Ramses Dumas UR MICRO IND INDICATED Normal [facility] Comment on above: Performed By: #### C MP #### [facility] [address] [place] [address] Dr. Ramses Dumas Urobilinogen Qn (U) 4 {Lucero'U}/dL Abnormal 0.2 - 1.0 [facility] Comment on above: Performed By: #### C MP #### [facility] [address] [place] [address] Dr. Ramses Dumas LIPASEon 02-16-2023 Lipase [Catalytic activity/Vol] 67.0 U/L Critically low 73.0-393.0 [facility] Comment on above: Performed By: #### U RCX #### [facility] [address] [place] [address] Dr. Ramses Dumas LIVER PROFILEon 02-16-2023 Albumin [Mass/Vol] 4.1 g/dL Normal 3.4-5.0 [facility] Comment on above: Performed By: #### U RCX #### [facility] [address] [place], [place] [id number] Dr. Ramses Dumas Albumin/Globulin [Mass ratio] 1.0 {ratio} Normal [facility] Comment on above: Performed By: #### U RCX #### [facility] [address] [place] [address] Dr. Ramses Dumas ALP [Catalytic activity/Vol] 85 U/L Normal 46-116 [facility] Comment on above: Performed By: #### U RCX #### [facility] [address] [address] [address] Ramses Dumas ALT [Catalytic activity/Vol] 61 U/L Critically high 14-59 [facility] Comment on above: Performed By: #### U RCX #### [facility] [address] [place] [address] Dr. Ramses Dumas AST [Catalytic activity/Vol] 43 U/L Critically high 15-37 [facility] Comment on above: Performed By: #### U RCX #### [facility] [address] [place] [address] Dr. Ramses Dumas BILI, CONJUGATED 0.1 mg/dL Normal 0.0-0.2 [facility] Comment on above: Performed By: #### U RCX #### [facility] [address] [place] [address] Dr. Ramses Dumas Bilirubin [Mass/Vol] 0.7 mg/dL Normal 0.2-1.0 [facility] Comment on above: Performed By: #### U RCX #### [facility] [address] [place] [address] Dr. Ramses Dumas Globulin (S) [Mass/Vol] 4.2 g/dL Normal [facility] Comment on above: Performed By: #### U RCX #### [facility] [address] [place] [address] Dr. Ramses Dumas Protein [Mass/Vol] 8.3 g/dL Critically high 6.4-8.2 [facility] Comment on above: Performed By: #### U RCX #### [facility] [address] [place] [address] Dr. Ramses Dumas URon 05-01-2023 , QUAL Negative Normal NEGATIVE [facility] Comment on above: Performed By: #### C MP #### [facility] [address] [address] [address] Ramses Dumas PROF CHEM 8 (BAS METB)on Anion gap [Moles/Vol] 14.2 mmol/L Normal [facility] Comment on above: Performed By: #### U RCX #### [facility] [address] [address] [address] Ramses Dumas Calcium [Mass/Vol] 9.5 mg/dL Normal 8.5-10.1 [facility] Comment on above: Performed By: #### U RCX #### [facility] [address] [place] [address] Dr. Ramses Dumas Chloride [Moles/Vol] 102 mmol/L Normal 98-107 [facility] Comment on above: Performed By: #### U RCX #### [facility] [address] [place] [address] Dr. Ramses Dumas CO2 [Moles/Vol] 27.5 mmol/L Normal 21.0-32.0 [facility] Comment on above: Performed By: #### U RCX #### [facility] [address] [place] [address] Dr. Ramses Dumas Creatinine [Mass/Vol] 0.71 mg/dL Normal 0.55-1.02 [facility] Comment on above: Performed By: #### U RCX #### [facility] [address] [place] [address] Dr. Ramses Dumas EGFR-AF NIUEAN >60 Normal >=60 [facility] Comment on above: Performed By: #### U RCX #### [facility] [address] [place] [address] Dr. Ramses Dumas EGFR-NON AF NIUEAN >60 Normal >=60 [facility] Comment on above: Performed By: #### U RCX #### [facility] [address] [place] [address] Dr. Ramses Dumas Glucose [Mass/Vol] 90 mg/dL Normal 74-106 [facility] Comment on above: Performed By: #### U RCX #### [facility] [address] [place] [address] Dr. Ramses Dumas Potassium [Moles/Vol] 3.7 mmol/L Normal 3.5-5.1 [facility] Comment on above: Performed By: #### U RCX #### [facility] [address] [place] [address] Dr. Ramses Dumas Sodium [Moles/Vol] 140 mmol/L Normal 136-145 [facility] Comment on above: Performed By: #### U RCX #### [facility] [address] [place] [address] Dr. Ramses Dumas Urea nitrogen [Mass/Vol] 6.0 mg/dL Critically low 7.0-18.0 [facility] Comment on above: Performed By: #### U RCX #### [facility] [address] [place] [address] Dr. Ramses Dumas Urea nitrogen/Creatinine [Mass ratio] 8.5 mg/mg Normal [facility] Comment on above: Performed By: #### U RCX #### [facility] [address] [place] [address] Dr. Ramses Dumas URINE MICROSCOPIC ONLYon BACTERIA NONE SEEN Normal NONE SEEN [facility] Comment on above: Performed By: #### U KJ 24 #### [facility] [address] [place] [address] Dr. Ramses Dumas Bacteria identified Cx Nom (U) NOT INDICATED Normal [facility] Comment on above: Performed By: #### U KJ 24 #### [facility] [address] [place] [address] Dr. Ramses Dumas CAST NONE SEEN Normal NONE SEEN [facility] Comment on above: Performed By: #### U KJ 24 #### [facility] [address] [place] [address] Dr. Ramses Dumas Crystals LM Nom (Urine sed) NONE SEEN Normal NONE SEEN [facility] Comment on above: Performed By: #### U KJ 24 #### [facility] [address] [place] [address] Dr. Ramses Dumas Epithelial cells LM Ql (Urine sed) FEW Abnormal NONE SEEN /RARE [facility] Comment on above: Performed By: #### U KJ 24 #### [facility] [address] [place] [address] Dr. Ramses Dumas MUCOUS SMALL Abnormal NONE SEEN [facility] Comment on above: Performed By: #### U KJ 24 #### [facility] [address] [place] [address] Dr. Ramses Dumas RBC NONE SEEN Abnormal 0-2 [facility] Comment on above: Performed By: #### U KJ 24 #### [facility] [address] [place] [address] Dr. Ramses Dumas WBC 0-2 Abnormal NONE SEEN [facility] Comment on above: Performed By: #### U KJ 24 #### [facility] [address] [place] [address] Dr. Ramses Dumas PAP ACOG PANEL 2: 30 to 65on 02-10-2023 . . Normal [facility] Comment on above: Result Comment: Perf ormed at: WB Performed By: #### U RCX #### [facility] [address] [place] [address] Dr. Ramses Dumas Age Gdln ACOG Testing 30-65 [facility] Comment on above: Performed By: #### U RCX #### [facility] [address] [place] [address] Dr. Ramses Dumas DIAGNOSIS: Comment Normal [facility] Comment on above: Result Comment: NEGA TIVE FOR INTRAEPITHELIAL LESION OR MALIGNANCY. REACTIVE CELLULAR CHANGES AND/OR REPAIR ARE PRESENT. Performed at: WB Performed By: #### U RCX #### [facility] [address] [place] [address] Dr. Ramses Dumas Electronically signed by: Comment Normal [facility] Comment on above: Result Comment: Chelsey Boston MD, Pathologist Performed at: WB Performed By: #### U RCX #### [facility] [address] [place] [address] Dr. Ramses Dumas HPV Aptima Negative Normal Negative [facility] Comment on above: Result Comment: This nucleic acid amplification test detects fourteen high-risk HPV types (16,18,31,33,35,39,45,51,52,56,58,59,66,68) without differentiation. Performed at: =G Performed By: #### U RCX #### [facility] [address] [address] [address] Ramses Dumas HPV Genotype Reflex Comment Normal [facility] Comment on above: Result Comment: Crit erli not met, HPV Genotype not performed. Performed at: WB Performed By: #### U RCX #### [facility] [address] [place] [address] Dr. Ramses Dumas Methodology: Comment Normal [facility] Comment on above: Result Comment: This liquid based ThinPrep(R) pap test was screened with the use of an image guided system. Performed at: WB Performed By: #### U RCX #### [facility] [address] [place] [address] Dr. Ramses Dumas Note: Comment Normal [facility] Comment on above: Result Comment: The [...] WB Performed By: #### U RCX #### [facility] [address] [place] [address] Dr. Ramses Dumas Performed by: Comment Normal [facility] Comment on above: Result Comment: Cuca Briceno, Tube Handler (ASCP) Performed at: WB Performed By: #### U RCX #### [facility] [address] [place], [place] [id number] Dr. Ramses Dumas Specimen adequacy: Comment Normal [facility] Comment on above: Result Comment: Sati sfactory for evaluation. Endocervical and/or squamous metaplastic cells (endocervical component) are present. Performed at: WB Performed By: #### U RCX #### [facility] [address] [place] [address] Dr. Ramses Dumas Lab Reportson 12-29-2022 Lab Reports [id number] 0CD:[id number] Normal [facility] RAD - MISCon 12-21-2022 RAD - MISC [id number] 0CD:[id number] Normal [facility] OXALATE 24HR URINEon 023 Oxalates, Urine 44 mg/L Normal Undefined [facility] Comment on above: Performed By: #### U KJ 24 #### [facility] [address] [place] [address] Dr. Ramses Dumas Oxalates, Urine 24hr 44 mg/24 hr Critically high [facility] Comment on above: Performed By: #### U KJ 24 #### [facility] [address] [place] [address] Dr. Ramses Dumas CITRATE URINE 24HRon 023 Citric Acid, U, 24hr 658 mg/24 hr Normal 320-1240 [facility] Comment on above: Result Comment: This test was developed and its performance characteristics determined by [employer]. It has not been cleared or approved by the Food and Drug Administration. Performed By: #### C ITRATU #### [facility] [address] [place] [address] Dr. Ramses Dumas Citric Acid, Urine 658 mg/L Normal Undefined [facility] Comment on above: Performed By: #### C ITRATU #### [facility] [address] [place] [address] Dr. Ramses Dumas MAGNESIUM 24HR URINEon 12-17 Magnesium 24hr Urine 119.0 mg/24 hr Normal 12.0-293.0 [facility] Comment on above: Performed By: #### U RCX #### [facility] [address] [place] [address] Dr. Ramses Dumas Magnesium UR 11.9 mg/dL Normal Not Estab. [facility] Comment on above: Performed By: #### U RCX #### [facility] [address] [address] [address] Ramses Dumas PHOSPHORUS 24HR URINEon Phosphorus, Urine 81.4 mg/dL Normal Not Estab. [facility] Comment on above: Performed By: #### B LDCX2 #### [facility] [address] [place] [address] Dr. Ramses Dumas Phosphorus, Urine 24hr 814 mg/24 hr Normal 261-1078 [facility] Comment on above: Performed By: #### B LDCX2 #### [facility] [address] [place] [address] Dr. Ramses Dumas PTH INTACTon 12-17-2022 PTH, Intact 46 pg/mL Normal 15-65 [facility] Comment on above: Performed By: #### U RCX #### [facility] [address] [place] [address] Dr. Ramses Dumas URIC ACID 24 HR URINEon Uric Acid, Urine 69.9 mg/dL Normal Not Estab. [facility] Comment on above: Performed By: #### U KJ 24 #### [facility] [address] [place] [address] Dr. Ramses Dumas Uric Acid, Urine 24hr 699.0 mg/24 hr Normal 173.7-902. 1 [facility] Comment on above: Performed By: #### U KJ 24 #### [facility] [address] [place] [address] Dr. Ramses Dumas BUNon 12-16-2022 Urea nitrogen [Mass/Vol] 7.0 mg/dL Normal 7.0-18.0 [facility] Comment on above: Performed By: #### C BC #### [facility] [address] [place] [address] Dr. Ramses Dumas CALCIUMon 12-16-2022 Calcium [Mass/Vol] 8.8 mg/dL Normal 8.5-10.1 [facility] Comment on above: Performed By: #### C BC #### [facility] [address] [place] [address] Dr. Ramses Dumas CALCIUM 24 HR URINEon 2022 CALC, 24 HR UR 295.0 mg/24 hr Normal 100.0-300.0 [facility] Comment on above: Performed By: #### B LDCX2 #### [facility] [address] [place] [address] Dr. Ramses Dumas UR CALCIUM 29.5 mg/dL Critically high 5.1-21.0 [facility] Comment on above: Performed By: #### B LDCX2 #### [facility] [address] [place] [address] Dr. Ramses Dumas CHLORIDEon 12-16-2022 Chloride [Moles/Vol] 105 mmol/L Normal 98-107 [facility] Comment on above: Performed By: #### C BC #### [facility] [address] [place] [address] Dr. Ramses Dumas CO2on 12-16-2022 CO2 [Moles/Vol] 26.4 mmol/L Normal 21.0-32.0 [facility] Comment on above: Performed By: #### C MP #### [facility] [address] [place] [address] Dr. Ramses Dumas CREA 24 HR URINEon 3 CREA, 24 HR UR 2337.30 mg/24 hr Critically high 800.00 -1,800 .00 [facility] Comment on above: Performed By: #### C VDTBH #### [facility] [address] [place] [address] Dr. Ramses Dumas URINE CREAT 233.73 mg/dL Normal 20.00-300.00 [facility] Comment on above: Performed By: #### C VDTBH #### [facility] [address] [place] [address] Dr. Ramses Dumas CREATININEon 12-16-2022 Creatinine [Mass/Vol] 0.70 mg/dL Normal 0.55-1.02 [facility] Comment on above: Performed By: #### C MP #### [facility] [address] [place] [address] Dr. Ramses Dumas EGFR-AF NIUEAN >60 Normal >=60 [facility] Comment on above: Performed By: #### C MP #### [facility] [address] [place] [address] Dr. Ramses Dumas EGFR-NON AF NIUEAN >60 Normal >=60 [facility] Comment on above: Performed By: #### C MP #### [facility] [address] [place] [address] Dr. Ramses Dumas NAon 12-16-2022 Sodium [Moles/Vol] 139 mmol/L Normal 136-145 [facility] Comment on above: Performed By: #### C MP #### [facility] [address] [place] [address] Dr. Ramses Dumas POTASSIUMon 12-16-2022 Potassium [Moles/Vol] 4.0 mmol/L Normal 3.5-5.1 [facility] Comment on above: Performed By: #### C MP #### [facility] [address] [place] [address] Dr. Ramses Dumas SODIUM 24 HR URINEon 023 NA, 24 HR UR 193 mmol/24 hr Normal 40-220 [facility] Comment on above: Performed By: #### C VDTBH #### [facility] [address] [place] [address] Dr. Ramses Dumas Sodium (U) [Moles/Vol] 193 mmol/L Critically high 30-90 [facility] Comment on above: Performed By: #### C VDTBH #### [facility] [address] [place] [address] Dr. Ramses Dumas UR TOT VOL 1000 ml/24 HR Normal [facility] Comment on above: Performed By: #### C VDTBH #### [facility] [address] [place] [address] Dr. Ramses Dumas Performed By: #### B LDCX2 #### [facility] [address] [place] [address] Dr. Ramses Dumas URIC ACID SERUMon 12-16-2022 Urate [Mass/Vol] 5.6 mg/dL Normal 2.6-6.0 [facility] Comment on above: Performed By: #### C MP #### [facility] [address] [address] [address] Ramses Dumas XR KUB 1 VIEWon [...] JENNIFER GATES Date: 2022-12-15 08:26 Normal [facility] CBC AUTO DIFFon 11-07-2022 BASO # 0.0 103/ul Normal 0.0-0.1 [facility] Comment on above: Performed By: #### U RCX #### [facility] [address] [place] [address] Dr. Ramses Dumas Basophils/100 WBC (Bld) 0.7 % Normal 0.2-2.0 [facility] Comment on above: Performed By: #### U RCX #### [facility] [address] [place] [address] Dr. Ramses Dumas EO # 0.1 103/ul Normal 0.0-0.7 [facility] Comment on above: Performed By: #### U RCX #### [facility] [address] [place] [address] Dr. Ramses Dumas Eosinophils/100 WBC (Bld) 1.9 % Normal 0.9-7.0 [facility] Comment on above: Performed By: #### U RCX #### [facility] [address] [place] [address] Dr. Ramses Dumas Erythrocyte distribution width (RBC) [Ratio] 13.6 % Normal 11.0-15.0 [facility] Comment on above: Performed By: #### U RCX #### [facility] [address] [address] [address] Ramses Dumas Hematocrit (Bld) [Volume fraction] 37.3 % Normal 36.0-48.0 [facility] Comment on above: Performed By: #### U RCX #### [facility] [address] [address] [address] Ramses Dumas Hemoglobin (Bld) [Mass/Vol] 12.2 g/dL Normal 12.0-16.0 [facility] Comment on above: Performed By: #### U RCX #### [facility] [address] [place] [address] Dr. Ramses Dumas IG # 0.02 10e3/ul Normal 0.00-0.03 [facility] Comment on above: Performed By: #### U RCX #### [facility] [address] [place] [address] Dr. Ramses Dumas IG % 0.3 % Normal 0.0-0.5 [facility] Comment on above: Performed By: #### U RCX #### [facility] [address] [place] [address] Dr. Ramses Dumas LYMPH # 2.3 103/ul Normal 1.2-3.8 [facility] Comment on above: Performed By: #### U RCX #### [facility] [address] [place] [address] Dr. Ramses Dumas Lymphocytes/100 WBC (Bld) 39.6 % Normal 20.5-60.0 [facility] Comment on above: Performed By: #### U RCX #### [facility] [address] [place] [address] Dr. Ramses Dumas MANUAL DIFF REQ NO Normal [facility] Comment on above: Performed By: #### U RCX #### [facility] [address] [place] [address] Dr. Ramses Dumas MCH (RBC) [Entitic mass] 26.4 pg Critically low 26.7-34.0 [facility] Comment on above: Performed By: #### U RCX #### [facility] [address] [address] [address] Ramses Dumas MCHC (RBC) [Mass/Vol] 32.7 g/dL Normal 29.9-35.2 [facility] Comment on above: Performed By: #### U RCX #### [facility] [address] [address] [address] Ramses Dumas MCV (RBC) [Entitic vol] 80.7 fL Critically low 81.0-99.0 [facility] Comment on above: Performed By: #### U RCX #### [facility] [address] [address] [address] Ramses Dumas MONO # 0.5 103/ul Normal 0.3-0.8 [facility] Comment on above: Performed By: #### U RCX #### [facility] [address] [place] [address] Dr. Ramses Dumas Monocytes/100 WBC (Bld) 8.0 % Normal 1.7-12.0 [facility] Comment on above: Performed By: #### U RCX #### [facility] [address] [place] [address] Dr. Ramses Dumas NEUT # 2.9 103/ul Normal 1.4-6.5 [facility] Comment on above: Performed By: #### U RCX #### [facility] [address] [place] [address] Dr. Ramses Dumas Neutrophils/100 WBC (Bld) 49.5 % Normal 43.0-75.0 [facility] Comment on above: Performed By: #### U RCX #### [facility] [address] [address] [address] Ramses Dumas Platelet mean volume (Bld) [Entitic vol] 9.0 fL Critically low 9.5-13.5 [facility] Comment on above: Performed By: #### U RCX #### [facility] [address] [place] [address] Dr. Ramses Dumas PLT 337 103/ul Normal 150-450 [facility] Comment on above: Performed By: #### U RCX #### [facility] [address] [address] [address] Ramses Dumas RBC 4.62 106/ul Normal 4.20-5.40 [facility] Comment on above: Performed By: #### U RCX #### [facility] [address] [place] [address] Dr. Ramses Dumas WBC 5.9 103/ul Normal 4.0-11.0 [facility] Comment on above: Performed By: #### U RCX #### [facility] [address] [place] [address] Dr. Ramses Dumas POINT OF CARE GLUCOSEon 10-20 Glucose [Mass/Vol] 115 mg/dL Critically high 74-106 [facility] Comment on above: Performed By: #### C VDTBH #### [facility] [address] [place] [address] Dr. Ramses Dumas PREG QUANT HCGon 11-07-2022 HCG QUANT <1 Normal [facility] Comment on above: Performed By: #### C VDTBH #### [facility] [address] [place] [address] Dr. Ramses Dumas HCG RANGE SEE BELOW Normal [facility] Comment on above: Result Comment: 5-50 0.2-1 WEEK 50-500 1-2 WEEKS 100-5,000 2-3 WEEKS 500-10,000 3-4 WEEKS 1,000-50,000 4-5 WEEKS 10,000-100,000 5-6 WEEKS 15,000-200,000 6-8 WEEKS 10,000-100,000 2-3 MONTHS Performed By: #### C VDTBH #### [facility] [address] [place] [address] Dr. Ramses Dumas US PELVIS AND TRANSVAGon [...] cm right ovarian simple cyst Normal [facility] CBC AUTO DIFFon 11-03-2022 BASO # 0.1 103/ul Normal 0.0-0.1 [facility] Comment on above: Performed By: #### U RCX #### [facility] [address] [address] [address] Ramses Dumas Basophils/100 WBC (Bld) 0.8 % Normal 0.2-2.0 [facility] Comment on above: Performed By: #### U RCX #### [facility] [address] [address] [address] Ramses Dumas EO # 0.1 103/ul Normal 0.0-0.7 [facility] Comment on above: Performed By: #### U RCX #### [facility] [address] [address] [address] Ramses Dumas Eosinophils/100 WBC (Bld) 1.4 % Normal 0.9-7.0 [facility] Comment on above: Performed By: #### U RCX #### [facility] [address] [address] [address] Ramses Dumas Erythrocyte distribution width (RBC) [Ratio] 13.4 % Normal 11.0-15.0 [facility] Comment on above: Performed By: #### U RCX #### [facility] [address] [address] [address] Ramses Dumas Hematocrit (Bld) [Volume fraction] 38.8 % Normal 36.0-48.0 [facility] Comment on above: Performed By: #### U RCX #### [facility] [address] [address] [address] Ramses Dumas Hemoglobin (Bld) [Mass/Vol] 12.7 g/dL Normal 12.0-16.0 [facility] Comment on above: Performed By: #### U RCX #### [facility] [address] [place] [address] Dr. Ramses Dumas IG # 0.01 10e3/ul Normal 0.00-0.03 [facility] Comment on above: Performed By: #### U RCX #### [facility] [address] [place] [address] Dr. Ramses Dumas IG % 0.1 % Normal 0.0-0.5 [facility] Comment on above: Performed By: #### U RCX #### [facility] [address] [place] [address] Dr. Ramses Dumas LYMPH # 1.9 103/ul Normal 1.2-3.8 [facility] Comment on above: Performed By: #### U RCX #### [facility] [address] [place] [address] Dr. Ramses Dumas Lymphocytes/100 WBC (Bld) 26.4 % Normal 20.5-60.0 [facility] Comment on above: Performed By: #### U RCX #### [facility] [address] [place] [address] Dr. Ramses Dumas MANUAL DIFF REQ NO Normal [facility] Comment on above: Performed By: #### U RCX #### [facility] [address] [place] [address] Dr. Ramses Dumas MCH (RBC) [Entitic mass] 26.3 pg Critically low 26.7-34.0 [facility] Comment on above: Performed By: #### U RCX #### [facility] [address] [place] [address] Dr. Ramses Dumas MCHC (RBC) [Mass/Vol] 32.7 g/dL Normal 29.9-35.2 [facility] Comment on above: Performed By: #### U RCX #### [facility] [address] [address] [address] Ramses Dumas MCV (RBC) [Entitic vol] 80.5 fL Critically low 81.0-99.0 [facility] Comment on above: Performed By: #### U RCX #### [facility] [address] [address] [address] Ramses Dumas MONO # 0.6 103/ul Normal 0.3-0.8 [facility] Comment on above: Performed By: #### U RCX #### [facility] [address] [place] [address] Dr. Ramses Dumas Monocytes/100 WBC (Bld) 8.2 % Normal 1.7-12.0 [facility] Comment on above: Performed By: #### U RCX #### [facility] [address] [place] [address] Dr. Ramses Dumas NEUT # 4.5 103/ul Normal 1.4-6.5 [facility] Comment on above: Performed By: #### U RCX #### [facility] [address] [place] [address] Dr. Ramses Dumas Neutrophils/100 WBC (Bld) 63.1 % Normal 43.0-75.0 [facility] Comment on above: Performed By: #### U RCX #### [facility] [address] [place] [address] Dr. Ramses Dumas Platelet mean volume (Bld) [Entitic vol] 8.9 fL Critically low 9.5-13.5 [facility] Comment on above: Performed By: #### U RCX #### [facility] [address] [place] [address] Dr. Ramses Dumas PLT 340 103/ul Normal 150-450 [facility] Comment on above: Performed By: #### U RCX #### [facility] [address] [place] [address] Dr. Ramses Dumas RBC 4.82 106/ul Normal 4.20-5.40 [facility] Comment on above: Performed By: #### U RCX #### [facility] [address] [place] [address] Dr. Ramses Dumas WBC 7.1 103/ul Normal 4.0-11.0 [facility] Comment on above: Performed By: #### U RCX #### [facility] [address] [place] [address] Dr. Ramses Dumas [facility] SARS-CoV-2 (COVID-19) RNA FRANCESCA+probe Ql (Unsp spec) Not detected Normal NOT DETECTED [facility] Comment on above: Result Comment: This test is not yet approved or cleared by the [place] FDA. When there are no FDA-approved or cleared tests available, and other criteria are met, FDA can make tests available under an emergency access mechanism called an Emergency Use Authorization (EUA). The EUA for this test is supported by the [place] of Health and Human Service's (HHS's) declaration [...] SARS-CoV-2. Performed By: #### U RCX #### [facility] [address] [place] [address] Dr. Ramses Dumas FREE T4on 11-03-2022 Free T4 [Mass/Vol] 0.99 ng/dL Normal 0.76-1.46 [facility] Comment on above: Performed By: #### B LDCX2 #### [facility] [address] [place] [address] Dr. Ramses Dumas GLYCOHEMOGLOBIN A1Con 2022 ADA RECOMMENDATION SEE BELOW Normal [facility] Comment on above: Result Comment: ADA RECOMMENDED LIMIT 4.0 - 6.0 ADA THERAPEUTIC TARGET < 7.0 ACTION SUGGESTED > 7.0 Performed By: #### C VDTBH #### [facility] [address] [place] [address] Dr. Ramses Dumas Glucose [Mass/Vol] 117 mg/dL Normal [facility] Comment on above: Performed By: #### C VDTBH #### [facility] [address] [place] [address] Dr. Ramses Dumas HbA1c (Bld) [Mass fraction] 5.7 % Normal 4.5-6.2 [facility] Comment on above: Performed By: #### C VDTBH #### [facility] [address] [place] [address] Dr. Ramses Dumas PROTIMEon 11-03-2022 INR Coag (PPP) [Relative time] 0.97 {INR} Normal [facility] Comment on above: Performed By: #### U KJ 24 #### [facility] [address] [place] [address] Dr. Ramses Dumas INR GUIDELINES SEE BELOW Normal [facility] Comment on above: Result Comment: TOÑA RED INR: 2.0 - 3.0 CONDITIONS NOT LISTED BELOW 2.5 - 3.5 FOR PROSTHETIC HEART VALVE REPLACEMENT 2.5 - 3.5 RECURRENT THROMBOSIS Performed By: #### U KJ 24 #### [facility] [address] [place] [address] Dr. Ramses Dumas PT Coag (PPP) [Time] 10.3 s Normal 9.0-11.6 [facility] Comment on above: Performed By: #### U KJ 24 #### [facility] [address] [place] [address] Dr. Ramses Dumas PTTon 11-03-2022 aPTT Coag (Bld) [Time] 27.7 s Normal 22.3-36.2 [facility] Comment on above: Performed By: #### U KJ 24 #### [facility] [address] [place] [address] Dr. Ramses Dumas TSHon 11-03-2022 TSH 0.667 uIU/mL Normal 0.358-3.740 [facility] Comment on above: Performed By: #### C VDTBH #### [facility] [address] [place] [address] Dr. Ramses Dumas PREG HCG QUALon 09-18-2022 , QUAL Negative Normal NEGATIVE [facility] Comment on above: Performed By: #### U KJ 24 #### [facility] [address] [place] [address] Dr. Ramses Dumas [facility]-20 SARS-CoV-2 (COVID-19) RNA FRANCESCA+probe Ql (Unsp spec) Not detected Normal NOT DETECTED [facility] Comment on above: Result Comment: This test is not yet approved or cleared by the [place] FDA. When there are no FDA-approved or cleared tests available, and other criteria are met, FDA can make tests available under an emergency access mechanism called an Emergency Use Authorization (EUA). The EUA for this test is supported by the [employer] of Health and Human Service's (HHS's) declaration [...] SARS-CoV-2. Performed By: #### C VDTBH #### [facility] [address] [place] [address] Dr. Ramses Dumas CBC AUTO DIFFon 09-05-2022 BASO # 0.1 103/ul Normal 0.0-0.1 [facility] Comment on above: Performed By: #### B LDCX2 #### [facility] [address] [place] [address] Dr. Ramses Dumas Basophils/100 WBC (Bld) 0.7 % Normal 0.2-2.0 [facility] Comment on above: Performed By: #### B LDCX2 #### [facility] [address] [place] [address] Dr. Ramses Dumas EO # 0.2 103/ul Normal 0.0-0.7 [facility] Comment on above: Performed By: #### B LDCX2 #### [facility] [address] [place] [address] Dr. Ramses Dumas Eosinophils/100 WBC (Bld) 2.2 % Normal 0.9-7.0 [facility] Comment on above: Performed By: #### B LDCX2 #### [facility] [address] [place] [address] Dr. Ramses Dumas Erythrocyte distribution width (RBC) [Ratio] 13.9 % Normal 11.0-15.0 [facility] Comment on above: Performed By: #### B LDCX2 #### [facility] [address] [place] [address] Dr. Ramses Dumas Hematocrit (Bld) [Volume fraction] 38.8 % Normal 36.0-48.0 [facility] Comment on above: Performed By: #### B LDCX2 #### [facility] [address] [place] [address] Dr. Ramses Dumas Hemoglobin (Bld) [Mass/Vol] 12.6 g/dL Normal 12.0-16.0 [facility] Comment on above: Performed By: #### B LDCX2 #### [facility] [address] [place] [address] Dr. Ramses Dumas IG # 0.03 10e3/ul Normal 0.00-0.03 [facility] Comment on above: Performed By: #### B LDCX2 #### [facility] [address] [place] [address] Dr. Ramses Dumas IG % 0.3 % Normal 0.0-0.5 [facility] Comment on above: Performed By: #### B LDCX2 #### [facility] [address] [place] [address] Dr. Ramses Dumas LYMPH # 2.3 103/ul Normal 1.2-3.8 [facility] Comment on above: Performed By: #### B LDCX2 #### [facility] [address] [place] [address] Dr. Ramses Dumas Lymphocytes/100 WBC (Bld) 21.3 % Normal 20.5-60.0 [facility] Comment on above: Performed By: #### B LDCX2 #### [facility] [address] [place] [address] Dr. Ramses Dumas MANUAL DIFF REQ NO Normal [facility] Comment on above: Performed By: #### B LDCX2 #### [facility] [address] [place] [address] Dr. Ramses Dumas MCH (RBC) [Entitic mass] 26.4 pg Critically low 26.7-34.0 [facility] Comment on above: Performed By: #### B LDCX2 #### [facility] [address] [place] [address] Dr. Ramses Dumas MCHC (RBC) [Mass/Vol] 32.5 g/dL Normal 29.9-35.2 [facility] Comment on above: Performed By: #### B LDCX2 #### [facility] [address] [place] [address] Dr. Ramses Dumas MCV (RBC) [Entitic vol] 81.2 fL Normal 81.0-99.0 [facility] Comment on above: Performed By: #### B LDCX2 #### [facility] [address] [place] [address] Dr. Ramses Dumas MONO # 0.8 103/ul Normal 0.3-0.8 [facility] Comment on above: Performed By: #### B LDCX2 #### [facility] [address] [place] [address] Dr. Ramses Dumas Monocytes/100 WBC (Bld) 7.4 % Normal 1.7-12.0 [facility] Comment on above: Performed By: #### B LDCX2 #### [facility] [address] [place] [address] Dr. Ramses Dumas NEUT # 7.3 103/ul Critically high 1.4-6.5 [facility] Comment on above: Performed By: #### B LDCX2 #### [facility] [address] [address] [address] Ramses Dumas Neutrophils/100 WBC (Bld) 68.1 % Normal 43.0-75.0 [facility] Comment on above: Performed By: #### B LDCX2 #### [facility] [address] [address] [address] Ramses Dumas Platelet mean volume (Bld) [Entitic vol] 8.8 fL Critically low 9.5-13.5 [facility] Comment on above: Performed By: #### B LDCX2 #### [facility] [address] [address] [address] Ramses Dumas PLT 323 103/ul Normal 150-450 [facility] Comment on above: Performed By: #### B LDCX2 #### [facility] [address] [place] [address] Dr. Ramses Dumas RBC 4.78 106/ul Normal 4.20-5.40 [facility] Comment on above: Performed By: #### B LDCX2 #### [facility] [address] [address] [address] Ramses Dumas WBC 10.7 103/ul Normal 4.0-11.0 [facility] Comment on above: Performed By: #### B LDCX2 #### [facility] [address] [address] [address] Ramses Dumas CULTURE URINEon 09-05-2022 CULTURE URINE Culture Observations : LIGHT GROWTH OF MIXED GENITAL DAIANA. NO POTENTIAL PATHOGENS SEEN. Normal [facility] Comment on above: Performed By: #### U RCX #### [facility] [address] [address] [address] Ramses Dumas ER URINE PROFILEon Bilirubin Ql (U) Negative Normal NEGATIVE [facility] Comment on above: Performed By: #### B LDCX2 #### [facility] [address] [place] [address] Dr. Ramses Dumas Clarity (U) CLOUDY Abnormal CLEAR [facility] Comment on above: Performed By: #### B LDCX2 #### [facility] [address] [place] [address] Dr. Ramses Dumas Color (U) YELLOW Normal YELLOW [facility] Comment on above: Performed By: #### B LDCX2 #### [facility] [address] [place] [address] Dr. Ramses DELEON A micrscopic examination will be performed if indicated. Normal [facility] Comment on above: Performed By: #### B LDCX2 #### [facility] [address] [place] [address] Dr. Ramses Dumas Glucose Ql (U) Negative Normal NEGATIVE [facility] Comment on above: Performed By: #### B LDCX2 #### [facility] [address] [place] [address] Dr. Ramses Dumas Hemoglobin Ql (U) LARGE Abnormal NEGATIVE [facility] Comment on above: Performed By: #### B LDCX2 #### [facility] [address] [place] [address] Dr. Ramses Dumas Ketones Ql (U) Negative Normal NEGATIVE [facility] Comment on above: Performed By: #### B LDCX2 #### [facility] [address] [place] [address] Dr. Ramses Dumas LEUKOCYTES SMALL Abnormal NEGATIVE [facility] Comment on above: Performed By: #### B LDCX2 #### [facility] [address] [place] [address] Dr. Ramses Dumas Nitrite Ql (U) Negative Normal NEGATIVE [facility] Comment on above: Performed By: #### B LDCX2 #### [facility] [address] [place] [address] Dr. Ramses Dumas pH (U) 6.0 [pH] Normal 5-9 [facility] Comment on above: Performed By: #### B LDCX2 #### [facility] [address] [place] [address] Dr. Ramses Dumas Protein (U) [Mass/Vol] 100 mg/dL Abnormal NEGAT CHRIS/ TRACE [facility] Comment on above: Performed By: #### B LDCX2 #### [facility] [address] [address] [address] Ramses Dumas SPEC GRAVITY >=1.030 Abnormal 1.005-<=1.02 5 [facility] Comment on above: Performed By: #### B LDCX2 #### [facility] [address] [address] [address] Ramses Dumas UR MICRO IND INDICATED Normal [facility] Comment on above: Performed By: #### B LDCX2 #### [facility] [address] [address] [address] Ramses Dumas Urobilinogen Qn (U) 0.2 {Lucero'U}/dL Normal 0.2 - 1. 0 [facility] Comment on above: Performed By: #### B LDCX2 #### [facility] [address] [place] [address] Dr. Ramses Dumas URon 09-05-2022 , QUAL Negative Normal NEGATIVE [facility] Comment on above: Performed By: #### B LDCX2 #### [facility] [address] [place] [address] Dr. Ramses Dumas PROF CHEM 8 (BAS METB)on Anion gap [Moles/Vol] 11.7 mmol/L Normal [facility] Comment on above: Performed By: #### C MP #### [facility] [address] [place] [address] Dr. Ramses Dumas Calcium [Mass/Vol] 9.1 mg/dL Normal 8.5-10.1 [facility] Comment on above: Performed By: #### C MP #### [facility] [address] [address] [address] Ramses Dumas Chloride [Moles/Vol] 103 mmol/L Normal 98-107 [facility] Comment on above: Performed By: #### C MP #### [facility] [address] [place] [address] Dr. Ramses Dumas CO2 [Moles/Vol] 25.9 mmol/L Normal 21.0-32.0 [facility] Comment on above: Performed By: #### C MP #### [facility] [address] [address] [address] Ramses Dumas Creatinine [Mass/Vol] 0.77 mg/dL Normal 0.55-1.02 [facility] Comment on above: Performed By: #### C MP #### [facility] [address] [address] [address] Ramses Dumas EGFR-AF NIUEAN >60 Normal >=60 [facility] Comment on above: Performed By: #### C MP #### [facility] [address] [address] [address] Ramses Dumas EGFR-NON AF NIUEAN >60 Normal >=60 [facility] Comment on above: Performed By: #### C MP #### [facility] [address] [address] [address] Ramses Dumas Glucose [Mass/Vol] 124 mg/dL Critically high 74-106 [facility] Comment on above: Performed By: #### C MP #### [facility] [address] [address] [address] Ramses Dumas Potassium [Moles/Vol] 3.6 mmol/L Normal 3.5-5.1 [facility] Comment on above: Performed By: #### C MP #### [facility] [address] [address] [address] Ramses Dumas Sodium [Moles/Vol] 137 mmol/L Normal 136-145 [facility] Comment on above: Performed By: #### C MP #### [facility] [address] [address] [address] Ramses Dumas Urea nitrogen [Mass/Vol] 12.0 mg/dL Normal 7.0-18.0 [facility] Comment on above: Performed By: #### C MP #### [facility] [address] [address] [address] Ramses Dumas Urea nitrogen/Creatinine [Mass ratio] 15.6 mg/mg Normal [facility] Comment on above: Performed By: #### C MP #### [facility] [address] [place] [address] Dr. Ramses Dumas URINE MICROSCOPIC ONLYon AMORPHOUS CRYSTALS RARE Normal [facility] Comment on above: Performed By: #### B LDCX2 #### [facility] [address] [place] [address] Dr. Ramses Dumas BACTERIA TRACE Abnormal NONE SEEN [facility] Comment on above: Performed By: #### B LDCX2 #### [facility] [address] [place] [address] Dr. Ramses Dumas Bacteria identified Cx Nom (U) INDICATED Normal [facility] Comment on above: Performed By: #### B LDCX2 #### [facility] [address] [place] [address] Dr. Ramses Dumas CA OX CRYSTALS RARE Normal [facility] Comment on above: Performed By: #### B LDCX2 #### [facility] [address] [place] [address] Dr. Ramses Dumas CAST NONE SEEN Normal NONE SEEN [facility] Comment on above: Performed By: #### B LDCX2 #### [facility] [address] [place] [address] Dr. Ramses Dumas Crystals LM Nom (Urine sed) SEEN Abnormal NONE SEEN [facility] Comment on above: Performed By: #### B LDCX2 #### [facility] [address] [place] [address] Dr. Ramses Dumas Epithelial cells LM Ql (Urine sed) FEW Abnormal NONE SEEN /RARE [facility] Comment on above: Performed By: #### B LDCX2 #### [facility] [address] [place] [address] Dr. Ramses Dumas MUCOUS TRACE Abnormal NONE SEEN [facility] Comment on above: Performed By: #### B LDCX2 #### [facility] [address] [place] [address] Dr. Ramses Dumas RBC 50-75 Abnormal 0-2 [facility] Comment on above: Performed By: #### B LDCX2 #### [facility] [address] [place] [address] Dr. Ramses Dumas WBC 20-50 Abnormal NONE SEEN [facility] Comment on above: Performed By: #### B LDCX2 #### [facility] [address] [address] [address] Ramses Dumas YEAST PRESENT Abnormal NONE SEEN [facility] Comment on above: Performed By: #### B LDCX2 #### [facility] [address] [address] [address] Ramses Dumas US KIDNEYSon 09-05-2022 US [...] GLEN GRAFF Date: 2022-09-05 11:00 Normal [facility] CT ABD/PELVIS WO CONon 08-29 CT [...] ERICKA IGLESIAS Date: 2022-08-29 01:10 Normal [facility] CULTURE URINEon 08-29-2022 CULTURE URINE Culture Observations : LIGHT GROWTH OF MIXED GENITAL DAIANA. NO POTENTIAL PATHOGENS SEEN. Normal [facility] Comment on above: Performed By: #### U RCX #### [facility] [address] [place] [address] Dr. Ramses Dumas CBC AUTO DIFFon 08-28-2022 BASO # 0.1 103/ul Normal 0.0-0.1 [facility] Comment on above: Performed By: #### U RCX #### [facility] [address] [place] [address] Dr. Ramses Dumas Basophils/100 WBC (Bld) 0.5 % Normal 0.2-2.0 [facility] Comment on above: Performed By: #### U RCX #### [facility] [address] [place] [address] Dr. Ramses Dumas EO # 0.3 103/ul Normal 0.0-0.7 [facility] Comment on above: Performed By: #### U RCX #### [facility] [address] [place] [address] Dr. Ramses Dumas Eosinophils/100 WBC (Bld) 2.3 % Normal 0.9-7.0 [facility] Comment on above: Performed By: #### U RCX #### [facility] [address] [address] [address] Ramses Dumas Erythrocyte distribution width (RBC) [Ratio] 13.7 % Normal 11.0-15.0 [facility] Comment on above: Performed By: #### U RCX #### [facility] [address] [place] [address] Dr. Ramses Dumas Hematocrit (Bld) [Volume fraction] 36.7 % Normal 36.0-48.0 [facility] Comment on above: Performed By: #### U RCX #### [facility] [address] [place] [address] Dr. Ramses Dumas Hemoglobin (Bld) [Mass/Vol] 12.3 g/dL Normal 12.0-16.0 [facility] Comment on above: Performed By: #### U RCX #### [facility] [address] [place] [address] Dr. Ramses Dumas IG # 0.16 10e3/ul Critically high 0.00-0.03 [facility] Comment on above: Performed By: #### U RCX #### [facility] [address] [place] [address] Dr. Ramses Dumas IG % 1.1 % Critically high 0.0-0.5 [facility] Comment on above: Performed By: #### U RCX #### [facility] [address] [place] [address] Dr. Ramses Dumas LYMPH # 4.6 103/ul Critically high 1.2-3.8 [facility] Comment on above: Performed By: #### U RCX #### [facility] [address] [place] [address] Dr. Ramses Dumas Lymphocytes/100 WBC (Bld) 31.8 % Normal 20.5-60.0 [facility] Comment on above: Performed By: #### U RCX #### [facility] [address] [place] [address] Dr. Ramses Dumas MANUAL DIFF REQ NO Normal [facility] Comment on above: Performed By: #### U RCX #### [facility] [address] [address] [address] Ramses Dumas MCH (RBC) [Entitic mass] 26.9 pg Normal 26.7-34.0 [facility] Comment on above: Performed By: #### U RCX #### [facility] [address] [place] [address] Dr. Ramses Dumas MCHC (RBC) [Mass/Vol] 33.5 g/dL Normal 29.9-35.2 [facility] Comment on above: Performed By: #### U RCX #### [facility] [address] [place] [address] Dr. Ramses Dumas MCV (RBC) [Entitic vol] 80.3 fL Critically low 81.0-99.0 [facility] Comment on above: Performed By: #### U RCX #### [facility] [address] [place] [address] Dr. Ramses Dumas MONO # 1.0 103/ul Critically high 0.3-0.8 [facility] Comment on above: Performed By: #### U RCX #### [facility] [address] [place] [address] Dr. Ramses Dumas Monocytes/100 WBC (Bld) 7.0 % Normal 1.7-12.0 [facility] Comment on above: Performed By: #### U RCX #### [facility] [address] [place] [address] Dr. Ramses Dumas NEUT # 8.2 103/ul Critically high 1.4-6.5 [facility] Comment on above: Performed By: #### U RCX #### [facility] [address] [place] [address] Dr. Ramses Dumas Neutrophils/100 WBC (Bld) 57.3 % Normal 43.0-75.0 [facility] Comment on above: Performed By: #### U RCX #### [facility] [address] [place] [address] Dr. Ramses Dumas Platelet mean volume (Bld) [Entitic vol] 8.6 fL Critically low 9.5-13.5 [facility] Comment on above: Performed By: #### U RCX #### [facility] [address] [place] [address] Dr. Ramses Dumas PLT 395 103/ul Normal 150-450 [facility] Comment on above: Performed By: #### U RCX #### [facility] [address] [place] [address] Dr. Ramses Dumas RBC 4.57 106/ul Normal 4.20-5.40 [facility] Comment on above: Performed By: #### U RCX #### [facility] [address] [place] [address] Dr. Ramses Dumas WBC 14.3 103/ul Critically high 4.0-11.0 [facility] Comment on above: Performed By: #### U RCX #### [facility] [address] [place] [address] Dr. Ramses Dumas ER URINE PROFILEon 2 Bilirubin Ql (U) Negative Normal NEGATIVE [facility] Comment on above: Performed By: #### U KJ 24 #### [facility] [address] [place] [address] Dr. Ramses Dumas Clarity (U) CLEAR Normal CLEAR [facility] Comment on above: Performed By: #### U KJ 24 #### [facility] [address] [place] [address] Dr. Ramses Dumas Color (U) LT. YELLOW Normal YELLOW [facility] Comment on above: Performed By: #### U KJ 24 #### [facility] [address] [place] [address] Dr. Ramses DELEON A micrscopic examination will be performed if indicated. Normal [facility] Comment on above: Performed By: #### U KJ 24 #### [facility] [address] [place] [address] Dr. Ramses Dumas Glucose Ql (U) Negative Normal NEGATIVE [facility] Comment on above: Performed By: #### U KJ 24 #### [facility] [address] [place] [address] Dr. Ramses Dumas Hemoglobin Ql (U) LARGE Abnormal NEGATIVE [facility] Comment on above: Performed By: #### U KJ 24 #### [facility] [address] [place] [address] Dr. Ramses Dumas Ketones Ql (U) Negative Normal NEGATIVE [facility] Comment on above: Performed By: #### U KJ 24 #### [facility] [address] [place] [address] Dr. Ramses Dumas LEUKOCYTES MODERATE Abnormal NEGATIVE [facility] Comment on above: Performed By: #### U KJ 24 #### [facility] [address] [place] [address] Dr. Ramses Dumas Nitrite Ql (U) Negative Normal NEGATIVE [facility] Comment on above: Performed By: #### U KJ 24 #### [facility] [address] [place] [address] Dr. Ramses Dumas pH (U) 6.5 [pH] Normal 5-9 [facility] Comment on above: Performed By: #### U KJ 24 #### [facility] [address] [place] [address] Dr. Ramses Dumas Protein (U) [Mass/Vol] 100 mg/dL Abnormal NEGAT CHRIS/ TRACE [facility] Comment on above: Performed By: #### U KJ 24 #### [facility] [address] [place] [address] Dr. Ramses Dumas SPEC GRAVITY 1.020 Normal 1.005-<=1.02 5 [facility] Comment on above: Performed By: #### U KJ 24 #### [facility] [address] [place] [address] Dr. Ramses Dumas UR MICRO IND INDICATED Normal [facility] Comment on above: Performed By: #### U KJ 24 #### [facility] [address] [place] [address] Dr. Ramses Dumas Urobilinogen Qn (U) 0.2 {Lucero'U}/dL Normal 0.2 - 1. 0 [facility] Comment on above: Performed By: #### U KJ 24 #### [facility] [address] [place] [address] Dr. Ramses Dumas PROF 14(COMP METB)on 022 Albumin [Mass/Vol] 3.3 g/dL Critically low 3.4-5.0 [facility] Comment on above: Performed By: #### C MP #### [facility] [address] [place] [address] Dr. Ramses Dumas Albumin/Globulin [Mass ratio] 0.8 {ratio} Normal [facility] Comment on above: Performed By: #### C MP #### [facility] [address] [place] [address] Dr. Ramses Dumas ALP [Catalytic activity/Vol] 108 U/L Normal 46-116 [facility] Comment on above: Performed By: #### C MP #### [facility] [address] [place] [address] Dr. Ramses Dumas ALT [Catalytic activity/Vol] 103 U/L Critically high 14-59 [facility] Comment on above: Performed By: #### C MP #### [facility] [address] [place] [address] Dr. Ramses Dumas Anion gap [Moles/Vol] 6.6 mmol/L Normal [facility] Comment on above: Performed By: #### C MP #### [facility] [address] [place] [address] Dr. Ramses Dumas AST [Catalytic activity/Vol] 21 U/L Normal 15-37 [facility] Comment on above: Performed By: #### C MP #### [facility] [address] [place] [address] Dr. Ramses Dumas Bilirubin [Mass/Vol] 0.2 mg/dL Normal 0.2-1.0 [facility] Comment on above: Performed By: #### C MP #### [facility] [address] [place] [address] Dr. Ramses Dumas Calcium [Mass/Vol] 9.2 mg/dL Normal 8.5-10.1 [facility] Comment on above: Performed By: #### C MP #### [facility] [address] [place] [address] Dr. Ramses Dumas Chloride [Moles/Vol] 102 mmol/L Normal 98-107 [facility] Comment on above: Performed By: #### C MP #### [facility] [address] [address] [address] Ramses Dumas CO2 [Moles/Vol] 28.8 mmol/L Normal 21.0-32.0 [facility] Comment on above: Performed By: #### C MP #### [facility] [address] [address] [address] Ramses Dumas Creatinine [Mass/Vol] 0.92 mg/dL Normal 0.55-1.02 [facility] Comment on above: Performed By: #### C MP #### [facility] [address] [address] [address] Ramses Dumas EGFR-AF NIUEAN >60 Normal >=60 [facility] Comment on above: Performed By: #### C MP #### [facility] [address] [address] [address] Ramses Dumas EGFR-NON AF NIUEAN >60 Normal >=60 [facility] Comment on above: Performed By: #### C MP #### [facility] [address] [address] [address] Ramses Dumas Globulin (S) [Mass/Vol] 4.1 g/dL Normal [facility] Comment on above: Performed By: #### C MP #### [facility] [address] [address] [address] Ramses Dumas Glucose [Mass/Vol] 114 mg/dL Critically high 74-106 [facility] Comment on above: Performed By: #### C MP #### [facility] [address] [address] [address] Ramses Dumas Potassium [Moles/Vol] 3.4 mmol/L Critically low 3.5-5.1 [facility] Comment on above: Performed By: #### C MP #### [facility] [address] [address] [address] Ramses Dumas Protein [Mass/Vol] 7.4 g/dL Normal 6.4-8.2 [facility] Comment on above: Performed By: #### C MP #### [facility] [address] [place] [address] Dr. Ramses Dumas Sodium [Moles/Vol] 134 mmol/L Critically low 136-145 [facility] Comment on above: Performed By: #### C MP #### [facility] [address] [place] [address] Dr. Ramses Dumas Urea nitrogen [Mass/Vol] 11.0 mg/dL Normal 7.0-18.0 [facility] Comment on above: Performed By: #### C MP #### [facility] [address] [place] [address] Dr. Ramses Dumas Urea nitrogen/Creatinine [Mass ratio] 12.0 mg/mg Normal [facility] Comment on above: Performed By: #### C MP #### [facility] [address] [place] [address] Dr. Ramses Dumas URINE MICROSCOPIC ONLYon BACTERIA MODERATE Abnormal NONE SEEN [facility] Comment on above: Performed By: #### U KJ 24 #### [facility] [address] [place] [address] Dr. Ramses Dumas Bacteria identified Cx Nom (U) INDICATED Normal [facility] Comment on above: Performed By: #### U KJ 24 #### [facility] [address] [place] [address] Dr. Ramses Dumas CAST NONE SEEN Normal NONE SEEN [facility] Comment on above: Performed By: #### U KJ 24 #### [facility] [address] [place] [address] Dr. Ramses Dumas Crystals LM Nom (Urine sed) NONE SEEN Normal NONE SEEN [facility] Comment on above: Performed By: #### U KJ 24 #### [facility] [address] [place] [address] Dr. Ramses Dumas Epithelial cells LM Ql (Urine sed) RARE Normal NONE SEEN /RARE [facility] Comment on above: Performed By: #### U KJ 24 #### [facility] [address] [place] [address] Dr. Ramses Dumas MUCOUS NONE SEEN Normal NONE SEEN [facility] Comment on above: Performed By: #### U KJ 24 #### [facility] [address] [address] [address] Ramses Dumas RBC 20-50 Abnormal 0-2 [facility] Comment on above: Performed By: #### U KJ 24 #### [facility] [address] [id number] Ramses Dumas WBC 5-10 Abnormal NONE SEEN [facility] Comment on above: Performed By: #### U KJ 24 #### [facility] [address] [address] [address] Ramses Dumas CULTURE BLOODon 08-25-2022 Microscopic [...] S F Tetracycline >=16 R F Normal [facility] Comment on above: Performed By: #### B LDCX2 #### [facility] [address] [place] [address] Dr. Ramses Dumas Microscopic examination of blood, [...] F Tetracycline >=16 R F Normal [facility] Comment on above: Performed By: #### C BC #### [facility] [address] [place] [address] Dr. Ramses Dumas CBC AUTO DIFFon 08-24-2022 BASO # 0.0 103/ul Normal 0.0-0.1 [facility] Comment on above: Performed By: #### C BC #### [facility] [address] [place] [address] Dr. Ramses Dumas Basophils/100 WBC (Bld) 0.1 % Critically low 0.2-2.0 [facility] Comment on above: Performed By: #### C BC #### [facility] [address] [place] [address] Dr. Ramses Dumas EO # 0.0 103/ul Normal 0.0-0.7 [facility] Comment on above: Performed By: #### C BC #### [facility] [address] [place] [address] Dr. Ramses Dumas Eosinophils/100 WBC (Bld) 0.0 % Critically low 0.9-7.0 [facility] Comment on above: Performed By: #### C BC #### [facility] [address] [place] [address] Dr. Ramses Dumas Erythrocyte distribution width (RBC) [Ratio] 13.5 % Normal 11.0-15.0 [facility] Comment on above: Performed By: #### C BC #### [facility] [address] [place] [address] Dr. Ramses Dumas Hematocrit (Bld) [Volume fraction] 33.0 % Critically low 36.0-48.0 [facility] Comment on above: Performed By: #### C BC #### [facility] [address] [place] [address] Dr. Ramses Dumas Hemoglobin (Bld) [Mass/Vol] 10.7 g/dL Critically low 12.0-16.0 [facility] Comment on above: Performed By: #### C BC #### [facility] [address] [place] [address] Dr. Ramses Dumas IG # 0.04 10e3/ul Critically high 0.00-0.03 [facility] Comment on above: Performed By: #### C BC #### [facility] [address] [place] [address] Dr. Ramses Dumas IG % 0.4 % Normal 0.0-0.5 [facility] Comment on above: Performed By: #### C BC #### [facility] [address] [place] [address] Dr. Ramses Dumas LYMPH # 0.8 103/ul Critically low 1.2-3.8 [facility] Comment on above: Performed By: #### C BC #### [facility] [address] [place] [address] Dr. Ramses Dumas Lymphocytes/100 WBC (Bld) 7.9 % Critically low 20.5-60.0 [facility] Comment on above: Performed By: #### C BC #### [facility] [address] [place] [address] Dr. Ramses Dumas MANUAL DIFF REQ NO Normal [facility] Comment on above: Performed By: #### C BC #### [facility] [address] [place] [address] Dr. Ramses Dumas MCH (RBC) [Entitic mass] 26.5 pg Critically low 26.7-34.0 [facility] Comment on above: Performed By: #### C BC #### [facility] [address] [place] [address] Dr. Ramses Dumas MCHC (RBC) [Mass/Vol] 32.4 g/dL Normal 29.9-35.2 [facility] Comment on above: Performed By: #### C BC #### [facility] [address] [place] [address] Dr. Ramses Dumas MCV (RBC) [Entitic vol] 81.7 fL Normal 81.0-99.0 [facility] Comment on above: Performed By: #### C BC #### [facility] [address] [place] [address] Dr. Ramses Dumas MONO # 0.6 103/ul Normal 0.3-0.8 [facility] Comment on above: Performed By: #### C BC #### [facility] [address] [place] [address] Dr. Ramses Dumas Monocytes/100 WBC (Bld) 6.3 % Normal 1.7-12.0 [facility] Comment on above: Performed By: #### C BC #### [facility] [address] [place] [address] Dr. Ramses Dumas NEUT # 8.6 103/ul Critically high 1.4-6.5 [facility] Comment on above: Performed By: #### C BC #### [facility] [address] [place] [address] Dr. Ramses Dumas Neutrophils/100 WBC (Bld) 85.3 % Critically high 43.0-75.0 [facility] Comment on above: Performed By: #### C BC #### [facility] [address] [place] [address] Dr. Ramses Dumas Platelet mean volume (Bld) [Entitic vol] 9.1 fL Critically low 9.5-13.5 [facility] Comment on above: Performed By: #### C BC #### [facility] [address] [place] [address] Dr. Ramses Dumas PLT 248 103/ul Normal 150-450 [facility] Comment on above: Performed By: #### C BC #### [facility] [address] [place] [address] Dr. Ramses Dumas RBC 4.04 106/ul Critically low 4.20-5.40 [facility] Comment on above: Performed By: #### C BC #### [facility] [address] [place] [address] Dr. Ramses Dumas WBC 10.1 103/ul Normal 4.0-11.0 [facility] Comment on above: Performed By: #### C BC #### [facility] [address] [place] [address] Dr. Ramses Dumas CULTURE URINEon 08-24-2022 CULTURE [...] S F Tetracycline >=16 R F Normal [facility] Comment on above: Performed By: #### U RCX #### [facility] [address] [place] [address] Dr. Ramses Dumas PROF 14(COMP METB)on 022 Albumin [Mass/Vol] 2.4 g/dL Critically low 3.4-5.0 [facility] Comment on above: Performed By: #### C VDTBH #### [facility] [address] [place] [address] Dr. Ramses Dumas Albumin/Globulin [Mass ratio] 0.7 {ratio} Normal [facility] Comment on above: Performed By: #### C VDTBH #### [facility] [address] [place] [address] Dr. Ramses Dumas ALP [Catalytic activity/Vol] 95 U/L Normal 46-116 [facility] Comment on above: Performed By: #### C VDTBH #### [facility] [address] [place] [address] Dr. Ramses Dumas ALT [Catalytic activity/Vol] 327 U/L Critically high 14-59 [facility] Comment on above: Performed By: #### C VDTBH #### [facility] [address] [place] [address] Dr. Ramses Dumas Anion gap [Moles/Vol] 8.7 mmol/L Normal [facility] Comment on above: Performed By: #### C VDTBH #### [facility] [address] [place] [address] Dr. Ramses Dumas AST [Catalytic activity/Vol] 165 U/L Critically high 15-37 [facility] Comment on above: Performed By: #### C VDTBH #### [facility] [address] [place] [address] Dr. Ramses Dumas Bilirubin [Mass/Vol] 0.4 mg/dL Normal 0.2-1.0 [facility] Comment on above: Performed By: #### C VDTBH #### [facility] [address] [place] [address] Dr. Ramses Dumas Calcium [Mass/Vol] 8.0 mg/dL Critically low 8.5-10.1 [facility] Comment on above: Performed By: #### C VDTBH #### [facility] [address] [place] [address] Dr. Ramses Dumas Chloride [Moles/Vol] 108 mmol/L Critically high 98-107 [facility] Comment on above: Performed By: #### C VDTBH #### [facility] [address] [place] [address] Dr. Ramses Dumas CO2 [Moles/Vol] 25.3 mmol/L Normal 21.0-32.0 [facility] Comment on above: Performed By: #### C VDTBH #### [facility] [address] [place] [address] Dr. Ramses Dumas Creatinine [Mass/Vol] 0.70 mg/dL Normal 0.55-1.02 [facility] Comment on above: Performed By: #### C VDTBH #### [facility] [address] [place] [address] Dr. Ramses Dumas EGFR-AF NIUEAN >60 Normal >=60 [facility] Comment on above: Performed By: #### C VDTBH #### [facility] [address] [place] [address] Dr. Ramses Dumas EGFR-NON AF NIUEAN >60 Normal >=60 [facility] Comment on above: Performed By: #### C VDTBH #### [facility] [address] [place] [address] Dr. Ramses Dumas Globulin (S) [Mass/Vol] 3.6 g/dL Normal [facility] Comment on above: Performed By: #### C VDTBH #### [facility] [address] [address] [address] Ramses Dumas Glucose [Mass/Vol] 160 mg/dL Critically high 74-106 [facility] Comment on above: Performed By: #### C VDTBH #### [facility] [address] [place] [address] Dr. Ramses Dumas Potassium [Moles/Vol] 4.0 mmol/L Normal 3.5-5.1 [facility] Comment on above: Performed By: #### C VDTBH #### [facility] [address] [place] [address] Dr. Ramses Dumas Protein [Mass/Vol] 6.0 g/dL Critically low 6.4-8.2 [facility] Comment on above: Performed By: #### C VDTBH #### [facility] [address] [place] [address] Dr. Ramses Dumas Sodium [Moles/Vol] 138 mmol/L Normal 136-145 [facility] Comment on above: Performed By: #### C VDTBH #### [facility] [address] [place] [address] Dr. Ramses Dumas Urea nitrogen [Mass/Vol] 6.0 mg/dL Critically low 7.0-18.0 [facility] Comment on above: Performed By: #### C VDTBH #### [facility] [address] [place] [address] Dr. Ramses Dumas Urea nitrogen/Creatinine [Mass ratio] 8.6 mg/mg Normal [facility] Comment on above: Performed By: #### C VDTBH #### [facility] [address] [place] [address] Dr. Ramses Dumas CBC AUTO DIFFon 08-23-2022 BASO # 0.0 103/ul Normal 0.0-0.1 [facility] Comment on above: Performed By: #### U RCX #### [facility] [address] [place] [address] Dr. Ramses Dumas Basophils/100 WBC (Bld) 0.2 % Normal 0.2-2.0 [facility] Comment on above: Performed By: #### U RCX #### [facility] [address] [place] [address] Dr. Ramses Dumas EO # 0.0 103/ul Normal 0.0-0.7 [facility] Comment on above: Performed By: #### U RCX #### [facility] [address] [place] [address] Dr. Ramses Dumas Eosinophils/100 WBC (Bld) 0.1 % Critically low 0.9-7.0 [facility] Comment on above: Performed By: #### U RCX #### [facility] [address] [place] [address] Dr. Ramses Dumas Erythrocyte distribution width (RBC) [Ratio] 13.4 % Normal 11.0-15.0 [facility] Comment on above: Performed By: #### U RCX #### [facility] [address] [place] [address] Dr. Ramses Dumas Hematocrit (Bld) [Volume fraction] 34.1 % Critically low 36.0-48.0 [facility] Comment on above: Performed By: #### U RCX #### [facility] [address] [place] [address] Dr. Ramses Dumas Hemoglobin (Bld) [Mass/Vol] 10.9 g/dL Critically low 12.0-16.0 [facility] Comment on above: Performed By: #### U RCX #### [facility] [address] [place] [address] Dr. Ramses Dumas IG # 0.02 10e3/ul Normal 0.00-0.03 [facility] Comment on above: Performed By: #### U RCX #### [facility] [address] [place] [address] Dr. Ramses Dumas IG % 0.2 % Normal 0.0-0.5 [facility] Comment on above: Performed By: #### U RCX #### [facility] [address] [place] [address] Dr. Ramses Dumas LYMPH # 0.7 103/ul Critically low 1.2-3.8 [facility] Comment on above: Performed By: #### U RCX #### [facility] [address] [place] [address] Dr. Ramses Dumas Lymphocytes/100 WBC (Bld) 6.9 % Critically low 20.5-60.0 [facility] Comment on above: Performed By: #### U RCX #### [facility] [address] [place] [address] Dr. Ramses Dumas MANUAL DIFF REQ NO Normal [facility] Comment on above: Performed By: #### U RCX #### [facility] [address] [place] [address] Dr. Ramses Dumas MCH (RBC) [Entitic mass] 26.1 pg Critically low 26.7-34.0 [facility] Comment on above: Performed By: #### U RCX #### [facility] [address] [place] [address] Dr. Ramses Dumas MCHC (RBC) [Mass/Vol] 32.0 g/dL Normal 29.9-35.2 [facility] Comment on above: Performed By: #### U RCX #### [facility] [address] [place] [address] Dr. Ramses Dumas MCV (RBC) [Entitic vol] 81.8 fL Normal 81.0-99.0 [facility] Comment on above: Performed By: #### U RCX #### [facility] [address] [place] [address] Dr. Ramses Dumas MONO # 0.6 103/ul Normal 0.3-0.8 [facility] Comment on above: Performed By: #### U RCX #### [facility] [address] [place] [address] Dr. Ramses Dumas Monocytes/100 WBC (Bld) 5.9 % Normal 1.7-12.0 [facility] Comment on above: Performed By: #### U RCX #### [facility] [address] [place] [address] Dr. Ramses Dumas NEUT # 8.2 103/ul Critically high 1.4-6.5 [facility] Comment on above: Performed By: #### U RCX #### [facility] [address] [place] [address] Dr. Ramses Dumas Neutrophils/100 WBC (Bld) 86.7 % Critically high 43.0-75.0 [facility] Comment on above: Performed By: #### U RCX #### [facility] [address] [place] [address] Dr. Ramses Dumas Platelet mean volume (Bld) [Entitic vol] 9.4 fL Critically low 9.5-13.5 [facility] Comment on above: Performed By: #### U RCX #### [facility] [address] [place] [address] Dr. Ramses Dumas PLT 235 103/ul Normal 150-450 [facility] Comment on above: Performed By: #### U RCX #### [facility] [address] [place] [address] Dr. Ramses Dumas RBC 4.17 106/ul Critically low 4.20-5.40 [facility] Comment on above: Performed By: #### U RCX #### [facility] [address] [place] [address] Dr. Ramses Dumas WBC 9.5 103/ul Normal 4.0-11.0 [facility] Comment on above: Performed By: #### U RCX #### [facility] [address] [place] [address] Dr. Ramses Dumas PROF 14(COMP METB)on 022 Albumin [Mass/Vol] 2.6 g/dL Critically low 3.4-5.0 [facility] Comment on above: Performed By: #### U KJ 24 #### [facility] [address] [place] [address] Dr. Ramses Dumas Albumin/Globulin [Mass ratio] 0.8 {ratio} Normal [facility] Comment on above: Performed By: #### U KJ 24 #### [facility] [address] [address] [address] Ramses Dumas ALP [Catalytic activity/Vol] 82 U/L Normal 46-116 [facility] Comment on above: Performed By: #### U KJ 24 #### [facility] [address] [address] [address] Ramses Dumas ALT [Catalytic activity/Vol] 257 U/L Critically high 14-59 [facility] Comment on above: Performed By: #### U KJ 24 #### [facility] [address] [address] [address] Ramses Dumas Anion gap [Moles/Vol] 10.3 mmol/L Normal [facility] Comment on above: Performed By: #### U KJ 24 #### [facility] [address] [place] [address] Dr. Ramses Dumas AST [Catalytic activity/Vol] 196 U/L Critically high 15-37 [facility] Comment on above: Performed By: #### U KJ 24 #### [facility] [address] [place] [address] Dr. Ramses Dumas Bilirubin [Mass/Vol] 0.5 mg/dL Normal 0.2-1.0 [facility] Comment on above: Performed By: #### U KJ 24 #### [facility] [address] [place] [address] Dr. Ramses Dumas Calcium [Mass/Vol] 7.8 mg/dL Critically low 8.5-10.1 [facility] Comment on above: Performed By: #### U KJ 24 #### [facility] [address] [place] [address] Dr. Ramses Dumas Chloride [Moles/Vol] 104 mmol/L Normal 98-107 [facility] Comment on above: Performed By: #### U KJ 24 #### [facility] [address] [address] [address] Ramses Dumas CO2 [Moles/Vol] 24.4 mmol/L Normal 21.0-32.0 [facility] Comment on above: Performed By: #### U KJ 24 #### [facility] [address] [place] [address] Dr. Ramses Dumas Creatinine [Mass/Vol] 1.09 mg/dL Critically high 0.55-1.02 [facility] Comment on above: Performed By: #### U KJ 24 #### [facility] [address] [address] [address] Ramses Dumas EGFR-AF NIUEAN >60 Normal >=60 [facility] Comment on above: Performed By: #### U KJ 24 #### [facility] [address] [address] [address] Ramses Dumas EGFR-NON AF NIUEAN 59 mL/min/1.73m2 Critically low >=60 [facility] Comment on above: Performed By: #### U KJ 24 #### [facility] [address] [place] [address] Dr. Ramses Dumas Globulin (S) [Mass/Vol] 3.3 g/dL Normal [facility] Comment on above: Performed By: #### U KJ 24 #### [facility] [address] [place] [address] Dr. Ramses Dumas Glucose [Mass/Vol] 143 mg/dL Critically high 74-106 [facility] Comment on above: Performed By: #### U KJ 24 #### [facility] [address] [place] [address] Dr. Ramses Dumas Potassium [Moles/Vol] 3.7 mmol/L Normal 3.5-5.1 [facility] Comment on above: Performed By: #### U KJ 24 #### [facility] [address] [place] [address] Dr. Ramses Dumas Protein [Mass/Vol] 5.9 g/dL Critically low 6.4-8.2 [facility] Comment on above: Performed By: #### U KJ 24 #### [facility] [address] [place] [address] Dr. Ramses Dumas Sodium [Moles/Vol] 135 mmol/L Critically low 136-145 [facility] Comment on above: Performed By: #### U KJ 24 #### [facility] [address] [place] [address] Dr. Ramses Dumas Urea nitrogen [Mass/Vol] 10.0 mg/dL Normal 7.0-18.0 [facility] Comment on above: Performed By: #### U KJ 24 #### [facility] [address] [place] [address] Dr. Ramses Dumas Urea nitrogen/Creatinine [Mass ratio] 9.2 mg/mg Normal [facility] Comment on above: Performed By: #### U KJ 24 #### [facility] [address] [place] [address] Dr. Ramses Dumas BLOOD CULTURE ID PANELon A. baumannii Not detected Normal NOT DETECTED [facility] Comment on above: Performed By: #### C VDTBH #### [facility] [address] [place] [address] Dr. Ramses Dumas Bacteriodes fragilis Not detected Normal NOT DETECTED [facility] Comment on above: Performed By: #### C VDTBH #### [facility] [address] [place] [address] Dr. Ramses BAKER CONTROLS PASSED Normal [facility] Comment on above: Performed By: #### C VDTBH #### [facility] [address] [place] [address] Dr. Ramses SHEPPARDDBTHD BLOOD CULTURE BOTTLE INFORMATION Normal [facility] Comment on above: Performed By: #### C VDTBH #### [facility] [address] [place] [address] Dr. Ramses Dumas BCIDHD1 ANTIMICROBIAL RESISTANCE GENES Normal [facility] Comment on above: Performed By: #### C VDTBH #### [facility] [address] [place] [address] Dr. Ramses Dumas BCIDHD2 SEE BELOW [facility] Comment on above: Result Comment: Note : Antimicrobial resitance can occur via multiple mechanisms. A Not Detected result for the [employer] antomicrobial resistance gene assays does not indicate antimicrobial susceptibility. Subculturing is required for species identification and susceptibility testing of isolates. Performed By: #### C VDTBH #### [facility] [address] [place] [address] Dr. Yilan Dumas BCIDHD3 Positive Normal [facility] Comment on above: Performed By: #### C VDTBH #### [facility] [address] [address] [address] Ramses Dumas BCIDHD4 Negative Normal [facility] Comment on above: Performed By: #### C VDTBH #### [facility] [address] [address] [address] Ramses Dumas BCIDHD5 YEAST Normal [facility] Comment on above: Performed By: #### C VDTBH #### [facility] [address] [address] [address] Ramses Dumas Bottle Set: Set 1 Normal [facility] Comment on above: Performed By: #### C VDTBH #### [facility] [address] [place] [address] Dr. Ramses Dumas Bottle: Pediatric Normal [facility] Comment on above: Performed By: #### C VDTBH #### [facility] [address] [place] [address] Dr. Ramses Dumas C. neoformans/gattii Not detected Normal NOT DETECTED [facility] Comment on above: Performed By: #### C VDTBH #### [facility] [address] [place] [address] Dr. Ramses Dumas Kim albicans Not detected Normal NOT DETECTED [facility] Comment on above: Performed By: #### C VDTBH #### [facility] [address] [place] [address] Dr. Ramses Dumas Kim auris Not detected Normal NOT DETECTED [facility] Comment on above: Performed By: #### C VDTBH #### [facility] [address] [place] [address] Dr. Ramses Dumas Kim glabrata Not detected Normal NOT DETECTED [facility] Comment on above: Performed By: #### C VDTBH #### [facility] [address] [place] [address] Dr. Ramses Dumas Ikm Krusei Not detected Normal NOT DETECTED [facility] Comment on above: Performed By: #### C VDTBH #### [facility] [address] [place] [address] Dr. Ramses Dumas Kim Parapsilosis Not detected Normal NOT DETECTED [facility] Comment on above: Performed By: #### C VDTBH #### [facility] [address] [place] [address] Dr. Ramses Dumas Kim Tropicalis Not detected Normal NOT DETECTED [facility] Comment on above: Performed By: #### C VDTBH #### [facility] [address] [place] [address] Dr. Ramses Dumas CTX-M Resistant Gene Not Applicable Normal NOT DETECTE D [facility] Comment on above: Performed By: #### C VDTBH #### [facility] [address] [place] [address] Dr. Ramses Dumas E. Cloacae complex Not detected Normal NOT DETECTED [facility] Comment on above: Performed By: #### C VDTBH #### [facility] [address] [place] [address] Dr. Ramses Dumas E. faecalis Not detected Normal NOT DETECTED [facility] Comment on above: Performed By: #### C VDTBH #### [facility] [address] [place] [address] Dr. Ramses Dumas E. faecium Not detected Normal NOT DETECTED [facility] Comment on above: Performed By: #### C VDTBH #### [facility] [address] [place] [address] Dr. Ramses Dumas Enterobacteriaceae Not detected Normal NOT DETECTED [facility] Comment on above: Performed By: #### C VDTBH #### [facility] [address] [place] [address] Dr. Ramses Dumas Escherichia coli Not detected Normal NOT DETECTED [facility] Comment on above: Performed By: #### C VDTBH #### [facility] [address] [place] [address] Dr. Ramses Dumas H. influenzae Not detected Normal NOT DETECTED [facility] Comment on above: Performed By: #### C VDTBH #### [facility] [address] [place] [address] Dr. Ramses Dumas IMP Resistant Gene Not Applicable Normal NOT DETECTED [facility] Comment on above: Performed By: #### C VDTBH #### [facility] [address] [place] [address] Dr. Ramses Dumas K. oxytoca Not detected Normal NOT DETECTED [facility] Comment on above: Performed By: #### C VDTBH #### [facility] [address] [place] [address] Dr. Ramses Dumas K. pneumoniae Not detected Normal NOT DETECTED [facility] Comment on above: Performed By: #### C VDTBH #### [facility] [address] [place] [address] Dr. Ramses Dumas Klebsiella aerogenes Not detected Normal NOT DETECTED [facility] Comment on above: Performed By: #### C VDTBH #### [facility] [address] [place] [address] Dr. Ramses Dumas KPC Resistant Gene Not detected Normal NOT DETECTED [facility] Comment on above: Performed By: #### C VDTBH #### [facility] [address] [place] [address] Dr. Ramses Dumas List. monocytogenes Not detected Normal NOT DETECTED [facility] Comment on above: Performed By: #### C VDTBH #### [facility] [address] [place] [address] Dr. Ramses Dumas Mcr-1 Resistant Gene Not Applicable Normal NOT DETECTE D [facility] Comment on above: Performed By: #### C VDTBH #### [facility] [address] [place] [address] Dr. Ramses Dumas mecA/C Not Applicable Normal NOT DETECTED [facility] Comment on above: Performed By: #### C VDTBH #### [facility] [address] [place] [address] Dr. Ramses Dumas mecA/C MREJ Not Applicable Normal NOT DETECTED [facility] Comment on above: Performed By: #### C VDTBH #### [facility] [address] [place] [address] Dr. Ramses Dumas N. meningitidis Not detected Normal NOT DETECTED [facility] Comment on above: Performed By: #### C VDTBH #### [facility] [address] [place] [address] Dr. Ramses Dumas NDM Resistant Gene Not Applicable Normal NOT DETECTED [facility] Comment on above: Performed By: #### C VDTBH #### [facility] [address] [place] [address] Dr. Ramses Dumas Oxa-48-like Not Applicable Normal NOT DETECTED [facility] Comment on above: Performed By: #### C VDTBH #### [facility] [address] [place] [address] Dr. Ramses Dumas Proteus Not detected Normal NOT DETECTED [facility] Comment on above: Performed By: #### C VDTBH #### [facility] [address] [place] [address] Dr. Ramses Dumas Pseud. aeruginosa Not detected Normal NOT DETECTED [facility] Comment on above: Performed By: #### C VDTBH #### [facility] [address] [place] [address] Dr. Ramses Dumas S. maltophilia Not detected Normal NOT DETECTED [facility] Comment on above: Performed By: #### C VDTBH #### [facility] [address] [place] [address] Dr. Ramses Dumas Salmonella Not detected Normal NOT DETECTED [facility] Comment on above: Performed By: #### C VDTBH #### [facility] [address] [place] [address] Dr. Ramses Dumas Seratia marcescens Not detected Normal NOT DETECTED [facility] Comment on above: Performed By: #### C VDTBH #### [facility] [address] [place] [address] Dr. Ramses Dumas Site: unknown/not given Normal [facility] Comment on above: Performed By: #### C VDTBH #### [facility] [address] [place] [address] Dr. Ramses Dumas Staph. aureus Not detected Normal NOT DETECTED [facility] Comment on above: Performed By: #### C VDTBH #### [facility] [address] [place] [address] Dr. Ramses Benito. epidermidis Not detected Normal NOT DETECTED [facility] Comment on above: Performed By: #### C VDTBH #### [facility] [address] [place] [address] Dr. Ramses Benito. lugdunensis Not detected Normal NOT DETECTED [facility] Comment on above: Performed By: #### C VDTBH #### [facility] [address] [place] [address] Dr. Ramses Dumas Staphylococcus Not detected Normal NOT DETECTED [facility] Comment on above: Performed By: #### C VDTBH #### [facility] [address] [place] [address] Dr. Ramses Dumas Strep. agalactiae Detected Critically abnormal NOT DETECTED [facility] Comment on above: Performed By: #### C VDTBH #### [facility] [address] [place] [address] Dr. Ramses Dumas Strep. pneumoniae Not detected Normal NOT DETECTED [facility] Comment on above: Performed By: #### C VDTBH #### [facility] [address] [place] [address] Dr. Ramses Dumas Strep. pyogenes Not detected Normal NOT DETECTED [facility] Comment on above: Performed By: #### C VDTBH #### [facility] [address] [place] [address] Dr. Ramses Dumas Streptococcus Detected Critically abnormal NOT DETECTED [facility] Comment on above: Performed By: #### C VDTBH #### [facility] [address] [place] [address] Dr. Ramses Dumas Efrain/B Resist. Gene Not detected Normal NOT DETECTED [facility] Comment on above: Performed By: #### C VDTBH #### [facility] [address] [place] [address] Dr. Ramses Dumas VIM Resistant Gene Not Applicable Normal NOT DETECTED [facility] Comment on above: Performed By: #### C VDTBH #### [facility] [address] [address] [address] Ramses Dumas CBC AUTO DIFFon 08-22-2022 BASO # 0.1 103/ul Normal 0.0-0.1 [facility] Comment on above: Performed By: #### U KJ 24 #### [facility] [address] [place] [address] Dr. Ramses Dumas Basophils/100 WBC (Bld) 0.7 % Normal 0.2-2.0 [facility] Comment on above: Performed By: #### U KJ 24 #### [facility] [address] [place] [address] Dr. Ramses Dumas EO # 0.1 103/ul Normal 0.0-0.7 [facility] Comment on above: Performed By: #### U KJ 24 #### [facility] [address] [place] [address] Dr. Ramses Dumas Eosinophils/100 WBC (Bld) 1.7 % Normal 0.9-7.0 [facility] Comment on above: Performed By: #### U KJ 24 #### [facility] [address] [place] [address] Dr. Ramses Dumas Erythrocyte distribution width (RBC) [Ratio] 13.2 % Normal 11.0-15.0 [facility] Comment on above: Performed By: #### U KJ 24 #### [facility] [address] [place] [address] Dr. Ramses Dumas Hematocrit (Bld) [Volume fraction] 39.8 % Normal 36.0-48.0 [facility] Comment on above: Performed By: #### U KJ 24 #### [facility] [address] [place] [address] Dr. Ramses Dumas Hemoglobin (Bld) [Mass/Vol] 12.9 g/dL Normal 12.0-16.0 [facility] Comment on above: Performed By: #### U KJ 24 #### [facility] [address] [place] [address] Dr. Ramses Dumas IG # 0.02 10e3/ul Normal 0.00-0.03 [facility] Comment on above: Performed By: #### U KJ 24 #### [facility] [address] [address] [address] Ramses Dumas IG % 0.2 % Normal 0.0-0.5 [facility] Comment on above: Performed By: #### U KJ 24 #### [facility] [address] [address] [address] Ramses Dumas LYMPH # 3.2 103/ul Normal 1.2-3.8 [facility] Comment on above: Performed By: #### U KJ 24 #### [facility] [address] [place] [address] Dr. Ramses Dumas Lymphocytes/100 WBC (Bld) 40.0 % Normal 20.5-60.0 [facility] Comment on above: Performed By: #### U KJ 24 #### [facility] [address] [place] [address] Dr. Ramses Dumas MANUAL DIFF REQ NO Normal [facility] Comment on above: Performed By: #### U KJ 24 #### [facility] [address] [place] [address] Dr. Ramses Dumas MCH (RBC) [Entitic mass] 26.6 pg Critically low 26.7-34.0 [facility] Comment on above: Performed By: #### U KJ 24 #### [facility] [address] [place] [address] Dr. Ramses Dumas MCHC (RBC) [Mass/Vol] 32.4 g/dL Normal 29.9-35.2 [facility] Comment on above: Performed By: #### U KJ 24 #### [facility] [address] [place] [address] Dr. Ramses Dumas MCV (RBC) [Entitic vol] 82.1 fL Normal 81.0-99.0 [facility] Comment on above: Performed By: #### U KJ 24 #### [facility] [address] [place] [address] Dr. Ramses Dumas MONO # 0.6 103/ul Normal 0.3-0.8 [facility] Comment on above: Performed By: #### U KJ 24 #### [facility] [address] [address] [address] Ramses Dumas Monocytes/100 WBC (Bld) 7.5 % Normal 1.7-12.0 [facility] Comment on above: Performed By: #### U KJ 24 #### [facility] [address] [address] [address] Ramses Dumas NEUT # 4.0 103/ul Normal 1.4-6.5 [facility] Comment on above: Performed By: #### U KJ 24 #### [facility] [address] [address] [address] Ramses Dumas Neutrophils/100 WBC (Bld) 49.9 % Normal 43.0-75.0 [facility] Comment on above: Performed By: #### U KJ 24 #### [facility] [address] [place] [address] Dr. Ramses Dumas Platelet mean volume (Bld) [Entitic vol] 9.3 fL Critically low 9.5-13.5 [facility] Comment on above: Performed By: #### U KJ 24 #### [facility] [address] [address] [address] Ramses Dumas PLT 354 103/ul Normal 150-450 [facility] Comment on above: Performed By: #### U KJ 24 #### [facility] [address] [place] [address] Dr. Ramses Dumas RBC 4.85 106/ul Normal 4.20-5.40 [facility] Comment on above: Performed By: #### U KJ 24 #### [facility] [address] [address] [address] Ramses Dumas WBC 8.1 103/ul Normal 4.0-11.0 [facility] Comment on above: Performed By: #### U KJ 24 #### [facility] [address] [place] [address] ABD/PELVIS WO CONon [...] KESHIA IRIZARRY Date: 2022-08-22 07:04 Normal [facility] Covid-19 PCR ([facility])on SARS-CoV-2 (COVID-19) RNA FRANCESCA+probe Ql (Unsp spec) Not detected Normal NOT DETECTED [facility] Comment on above: Result Comment: When [...] for this test is supported by the [place] of Health and Human Service's declaration that [...] used). Performed By: #### C MP #### [facility] [address] [place] [address] Dr. Ramses Dumas ER URINE PROFILEon 2 Bilirubin Ql (U) Negative Normal NEGATIVE [facility] Comment on above: Performed By: #### U RCX #### [facility] [address] [place] [address] Dr. Ramses Dumas Clarity (U) CLEAR Normal CLEAR [facility] Comment on above: Performed By: #### U RCX #### [facility] [address] [place] [address] Dr. Ramses Dumas Color (U) LT. YELLOW Normal YELLOW [facility] Comment on above: Performed By: #### U RCX #### [facility] [address] [place] [address] Dr. Ramses DELEON A micrscopic examination will be performed if indicated. Normal [facility] Comment on above: Performed By: #### U RCX #### [facility] [address] [place] [address] Dr. Ramses Dumas Glucose Ql (U) Negative Normal NEGATIVE [facility] Comment on above: Performed By: #### U RCX #### [facility] [address] [place] [address] Dr. Ramses Dumas Hemoglobin Ql (U) SMALL Abnormal NEGATIVE [facility] Comment on above: Performed By: #### U RCX #### [facility] [address] [place] [address] Dr. Ramses Dumas Ketones Ql (U) Negative Normal NEGATIVE [facility] Comment on above: Performed By: #### U RCX #### [facility] [address] [place] [address] Dr. Ramses Dumas LEUKOCYTES SMALL Abnormal NEGATIVE [facility] Comment on above: Performed By: #### U RCX #### [facility] [address] [place] [address] Dr. Ramses Dumas Nitrite Ql (U) Negative Normal NEGATIVE [facility] Comment on above: Performed By: #### U RCX #### [facility] [address] [address] [address] Ramses Dumas pH (U) 7.0 [pH] Normal 5-9 [facility] Comment on above: Performed By: #### U RCX #### [facility] [address] [address] [address] Ramses Dumas Protein (U) [Mass/Vol] 30 mg/dL Abnormal NEGAT CHRIS/ TRACE [facility] Comment on above: Performed By: #### U RCX #### [facility] [address] [address] [address] Ramses Dumas SPEC GRAVITY 1.020 Normal 1.005-<=1.02 5 [facility] Comment on above: Performed By: #### U RCX #### [facility] [address] [place] [address] Dr. Ramses Dumas UR MICRO IND INDICATED Normal [facility] Comment on above: Performed By: #### U RCX #### [facility] [address] [address] [address] Ramses uDmas Urobilinogen Qn (U) 0.2 {Lucero'U}/dL Normal 0.2 - 1. 0 [facility] Comment on above: Performed By: #### U RCX #### [facility] [address] [address] [address] Ramses Dumas LACTATE/LACTIC ACIDon 2021 Lactate [Moles/Vol] 2.3 mmol/L Critically high 0.4-1.9 [facility] Comment on above: Performed By: #### U RCX #### [facility] [address] [address] [address] Ramses Dumas URon 08-22-2022 , QUAL Negative Normal NEGATIVE [facility] Comment on above: Performed By: #### U RCX #### [facility] [address] [place] [address] Dr. Ramses Dumas PROF 14(COMP METB)on 022 Albumin [Mass/Vol] 3.5 g/dL Normal 3.4-5.0 [facility] Comment on above: Performed By: #### U RCX #### [facility] [address] [place] [address] Dr. Ramses Dumas Albumin/Globulin [Mass ratio] 0.9 {ratio} Normal [facility] Comment on above: Performed By: #### U RCX #### [facility] [address] [address] [address] Ramses Dumas ALP [Catalytic activity/Vol] 92 U/L Normal 46-116 [facility] Comment on above: Performed By: #### U RCX #### [facility] [address] [place] [address] Dr. Ramses Dumas ALT [Catalytic activity/Vol] 139 U/L Critically high 14-59 [facility] Comment on above: Performed By: #### U RCX #### [facility] [address] [address] [address] Ramses Dumas Anion gap [Moles/Vol] 10.2 mmol/L Normal [facility] Comment on above: Performed By: #### U RCX #### [facility] [address] [place] [address] Dr. Ramses Dumas AST [Catalytic activity/Vol] 112 U/L Critically high 15-37 [facility] Comment on above: Performed By: #### U RCX #### [facility] [address] [place] [address] Dr. Ramses Dumas Bilirubin [Mass/Vol] 0.2 mg/dL Normal 0.2-1.0 [facility] [facility] Comment on above: Performed By: #### U RCX #### [facility] [address] [place] [address] Dr. Ramses Dumas Calcium [Mass/Vol] 8.8 mg/dL Normal 8.5-10.1 [facility] Comment on above: Performed By: #### U RCX #### [facility] [address] [place] [address] Dr. Ramses Dumas Chloride [Moles/Vol] 105 mmol/L Normal 98-107 [facility] Comment on above: Performed By: #### U RCX #### [facility] [address] [address] [address] Ramses Dumas CO2 [Moles/Vol] 26.3 mmol/L Normal 21.0-32.0 [facility] Comment on above: Performed By: #### U RCX #### [facility] [address] [address] [address] Ramses Dumas Creatinine [Mass/Vol] 0.95 mg/dL Normal 0.55-1.02 [facility] Comment on above: Performed By: #### U RCX #### [facility] [address] [place] [address] Dr. Ramses Dumas EGFR-AF NIUEAN >60 Normal >=60 [facility] Comment on above: Performed By: #### U RCX #### [facility] [address] [address] [address] Ramses Dumas EGFR-NON AF NIUEAN >60 Normal >=60 [facility] Comment on above: Performed By: #### U RCX #### [facility] [address] [address] [address] Ramses Dumas Globulin (S) [Mass/Vol] 3.9 g/dL Normal [facility] Comment on above: Performed By: #### U RCX #### [facility] [address] [address] [address] Ramses Dumas Glucose [Mass/Vol] 137 mg/dL Critically high 74-106 [facility] Comment on above: Performed By: #### U RCX #### [facility] [address] [address] [address] Ramses Dumas Potassium [Moles/Vol] 3.5 mmol/L Normal 3.5-5.1 [facility] Comment on above: Performed By: #### U RCX #### [facility] [address] [address] [address] Ramses Dumas Protein [Mass/Vol] 7.4 g/dL Normal 6.4-8.2 [facility] Comment on above: Performed By: #### U RCX #### [facility] [address] [address] [address] Ramses Dumas Sodium [Moles/Vol] 138 mmol/L Normal 136-145 [facility] Comment on above: Performed By: #### U RCX #### [facility] [address] [address] [address] Ramses Dumas Urea nitrogen [Mass/Vol] 11.0 mg/dL Normal 7.0-18.0 [facility] Comment on above: Performed By: #### U RCX #### [facility] [address] [address] [address] Ramses Dumas Urea nitrogen/Creatinine [Mass ratio] 11.6 mg/mg Normal [facility] Comment on above: Performed By: #### U RCX #### [facility] [address] [place] [address] Dr. Ramses Dumas URINE MICROSCOPIC ONLYon BACTERIA LARGE Abnormal NONE SEEN [facility] Comment on above: Performed By: #### U RCX #### [facility] [address] [place] [address] Dr. Ramses Dumas Bacteria identified Cx Nom (U) CX ALREADY ORDERED Normal [facility] Comment on above: Performed By: #### U RCX #### [facility] [address] [place] [address] Dr. Ramses Dumas CAST NONE SEEN Normal NONE SEEN [facility] Comment on above: Performed By: #### U RCX #### [facility] [address] [place] [address] Dr. Ramses Dumas Crystals LM Nom (Urine sed) NONE SEEN Normal NONE SEEN [facility] Comment on above: Performed By: #### U RCX #### [facility] [address] [place] [address] Dr. Ramses Dumas Epithelial cells LM Ql (Urine sed) MANY Abnormal NONE SEEN /RARE [facility] Comment on above: Performed By: #### U RCX #### [facility] [address] [address] [address] Ramses Dumas MUCOUS NONE SEEN Normal NONE SEEN [facility] Comment on above: Performed By: #### U RCX #### [facility] [address] [place] [address] Dr. Ramses Dumas RBC 5-10 Abnormal 0-2 [facility] Comment on above: Performed By: #### U RCX #### [facility] [address] [place] [address] Dr. Ramses Dumas WBC 50-75 Abnormal NONE SEEN [facility] Comment on above: Performed By: #### U RCX #### [facility] [address] [place] [address] Dr. Ramses Dumas CULTURE URINEon 08-15-2022 CULTURE [...] F Tetracycline >=16 R F Normal [facility] Comment on above: Performed By: #### U RCX #### [facility] [address] [place] [address] Dr. Ramses Dumas ACETAMINOPHENon 08-13-2022 Acetaminophen [Mass/Vol] ug/mL Critically low 10.0-30.0 [facility] Comment on above: Performed By: #### U RCX #### [facility] [address] [place] [address] Dr. Ramses Dumas CBC AUTO DIFFon 08-13-2022 BASO # 0.1 103/ul Normal 0.0-0.1 [facility] Comment on above: Performed By: #### C VDTBH #### [facility] [address] [place] [address] Dr. Ramses Dumas Basophils/100 WBC (Bld) 0.8 % Normal 0.2-2.0 [facility] Comment on above: Performed By: #### C VDTBH #### [facility] [address] [place] [address] Dr. Ramses Dumas EO # 0.1 103/ul Normal 0.0-0.7 [facility] Comment on above: Performed By: #### C VDTBH #### [facility] [address] [place] [address] Dr. Ramses Dumas Eosinophils/100 WBC (Bld) 1.6 % Normal 0.9-7.0 [facility] Comment on above: Performed By: #### C VDTBH #### [facility] [address] [place] [address] Dr. Ramses Dumas Erythrocyte distribution width (RBC) [Ratio] 13.3 % Normal 11.0-15.0 [facility] Comment on above: Performed By: #### C VDTBH #### [facility] [address] [place] [address] Dr. Ramses Dumas Hematocrit (Bld) [Volume fraction] 40.6 % Normal 36.0-48.0 [facility] Comment on above: Performed By: #### C VDTBH #### [facility] [address] [place] [address] Dr. Ramses Dumas Hemoglobin (Bld) [Mass/Vol] 13.2 g/dL Normal 12.0-16.0 [facility] Comment on above: Performed By: #### C VDTBH #### [facility] [address] [place] [address] Dr. Ramses Dumas IG # 0.01 10e3/ul Normal 0.00-0.03 [facility] Comment on above: Performed By: #### C VDTBH #### [facility] [address] [place] [address] Dr. Ramses Dumas IG % 0.2 % Normal 0.0-0.5 [facility] Comment on above: Performed By: #### C VDTBH #### [facility] [address] [place] [address] Dr. Ramses Dumas LYMPH # 2.4 103/ul Normal 1.2-3.8 [facility] Comment on above: Performed By: #### C VDTBH #### [facility] [address] [address] [address] Ramses Dumas Lymphocytes/100 WBC (Bld) 37.7 % Normal 20.5-60.0 [facility] Comment on above: Performed By: #### C VDTBH #### [facility] [address] [place] [address] Dr. Ramses Dumas MANUAL DIFF REQ NO Normal [facility] Comment on above: Performed By: #### C VDTBH #### [facility] [address] [place] [address] Dr. Ramses Dumas MCH (RBC) [Entitic mass] 26.7 pg Normal 26.7-34.0 [facility] Comment on above: Performed By: #### C VDTBH #### [facility] [address] [place] [address] Dr. Ramses Dumas MCHC (RBC) [Mass/Vol] 32.5 g/dL Normal 29.9-35.2 [facility] Comment on above: Performed By: #### C VDTBH #### [facility] [address] [place] [address] Dr. Ramses Dumas MCV (RBC) [Entitic vol] 82.0 fL Normal 81.0-99.0 [facility] Comment on above: Performed By: #### C VDTBH #### [facility] [address] [place] [address] Dr. Ramses Dumas MONO # 0.6 103/ul Normal 0.3-0.8 [facility] Comment on above: Performed By: #### C VDTBH #### [facility] [address] [place] [address] Dr. Ramses Dumas Monocytes/100 WBC (Bld) 8.6 % Normal 1.7-12.0 [facility] Comment on above: Performed By: #### C VDTBH #### [facility] [address] [place] [address] Dr. Ramses Dumas NEUT # 3.3 103/ul Normal 1.4-6.5 [facility] Comment on above: Performed By: #### C VDTBH #### [facility] [address] [address] [address] Ramses Dumas Neutrophils/100 WBC (Bld) 51.1 % Normal 43.0-75.0 [facility] Comment on above: Performed By: #### C VDTBH #### [facility] [address] [address] [address] Ramses Dumas Platelet mean volume (Bld) [Entitic vol] 8.7 fL Critically low 9.5-13.5 [facility] Comment on above: Performed By: #### C VDTBH #### [facility] [address] [place] [address] Dr. Ramses Dumas PLT 409 103/ul Normal 150-450 [facility] Comment on above: Performed By: #### C VDTBH #### [facility] [address] [place] [address] Dr. Ramses Dumas RBC 4.95 106/ul Normal 4.20-5.40 [facility] Comment on above: Performed By: #### C VDTBH #### [facility] [address] [place] [address] Dr. Ramses Dumas WBC 6.4 103/ul Normal 4.0-11.0 [facility] Comment on above: Performed By: #### C VDTBH #### [facility] [address] [place] [address] Dr. Ramses Dumas Covid-19 PCR ([facility])on 07-20 SARS-CoV-2 (COVID-19) RNA FRANCESCA+probe Ql (Unsp spec) Not detected Normal NOT DETECTED [facility] Comment on above: Result Comment: When [...] for this test is supported by the [employer] of [employer] and Human Service's declaration that [...] used). Performed By: #### C VDTB #### [facility] [address] [place] [address] Dr. Ramses Dumas DRUG SCREEN RAPID (URINE)on 08-13-2022 AMP Negative Normal NEGATIVE [facility] Comment on above: Performed By: #### C BC #### [facility] [address] [place] [address] Dr. Ramses Dumas BAR Negative Normal NEGATIVE [facility] Comment on above: Performed By: #### C BC #### [facility] [address] [place] [address] Dr. Ramses Dumas BUP Negative Normal NEGATIVE [facility] Comment on above: Performed By: #### C BC #### [facility] [address] [place] [address] Dr. Ramses Dumas BZO Negative Normal NEGATIVE [facility] Comment on above: Performed By: #### C BC #### [facility] [address] [place] [address] Dr. Ramses Dumas ODILIA Negative Normal NEGATIVE [facility] Comment on above: Performed By: #### C BC #### [facility] [address] [place] [address] Dr. Ramses Dumas CUT-OFFS SEE BELOW Normal [facility] Comment on above: Result Comment: AMP [...] ng/mL Performed By: #### C BC #### [facility] [address] [place] [address] Dr. Ramses Dumas DRUG CUT HEADER DRUG CLASS TEST SYST EM CUT-OFF CONCENTRATIONS ARE FOLLOWS: Normal [facility] Comment on above: Performed By: #### C BC #### [facility] [address] [place] [address] Dr. Ramses Dumas mAMP Negative Normal NEGATIVE [facility] Comment on above: Performed By: #### C BC #### [facility] [address] [place] [address] Dr. Ramses Dumas MTD Negative Normal NEGATIVE [facility] Comment on above: Performed By: #### C BC #### [facility] [address] [place] [address] Dr. Ramses Dumas OPI Negative Normal NEGATIVE [facility] Comment on above: Performed By: #### C BC #### [facility] [address] [place] [address] Dr. Ramses Dumas OXY Negative Normal NEGATIVE [facility] Comment on above: Performed By: #### C BC #### [facility] [address] [place] [address] Dr. Ramses Dumas PCP Negative Normal NEGATIVE [facility] Comment on above: Performed By: #### C BC #### [facility] [address] [place] [address] Dr. Ramses Dumas PPX Negative Normal NEGATIVE [facility] Comment on above: Performed By: #### C BC #### [facility] [address] [place] [address] Dr. Ramses Dumas TCA Negative Normal NEGATIVE [facility] Comment on above: Performed By: #### C BC #### [facility] [address] [place] [address] Dr. Ramses Dumas THC Negative Normal NEGATIVE [facility] Comment on above: Performed By: #### C BC #### [facility] [address] [place] [address] Dr. Ramses Dumas ER URINE PROFILEon 2 Bilirubin Ql (U) Negative Normal NEGATIVE [facility] Comment on above: Performed By: #### C BC #### [facility] [address] [place] [address] Dr. Ramses Dumas Clarity (U) CLEAR Normal CLEAR [facility] Comment on above: Performed By: #### C BC #### [facility] [address] [place] [address] Dr. Ramses Dumas Color (U) LT. YELLOW Normal YELLOW [facility] Comment on above: Performed By: #### C BC #### [facility] [address] [place] [address] Dr. Ramses DELEON A micrscopic examination will be performed if indicated. Normal [facility] Comment on above: Performed By: #### C BC #### [facility] [address] [place] [address] Dr. Ramses Dumas Glucose Ql (U) Negative Normal NEGATIVE [facility] Comment on above: Performed By: #### C BC #### [facility] [address] [place] [address] Dr. Ramses Dumas Hemoglobin Ql (U) LARGE Abnormal NEGATIVE [facility] Comment on above: Performed By: #### C BC #### [facility] [address] [place] [address] Dr. Ramses Dumas Ketones Ql (U) Negative Normal NEGATIVE [facility] Comment on above: Performed By: #### C BC #### [facility] [address] [place] [address] Dr. Ramses Dumas LEUKOCYTES LARGE Abnormal NEGATIVE [facility] Comment on above: Performed By: #### C BC #### [facility] [address] [place] [address] Dr. Ramses Dumas Nitrite Ql (U) Positive Abnormal NEGATIVE [facility] Comment on above: Performed By: #### C BC #### [facility] [address] [place] [address] Dr. Ramses Dumas pH (U) 6.0 [pH] Normal 5-9 [facility] Comment on above: Performed By: #### C BC #### [facility] [address] [place] [address] Dr. Ramses Dumas Protein (U) [Mass/Vol] 30 mg/dL Abnormal NEGAT CHRIS/ TRACE [facility] Comment on above: Performed By: #### C BC #### [facility] [address] [place] [address] Dr. Ramses Dumas SPEC GRAVITY >=1.030 Abnormal 1.005-<=1.02 5 [facility] Comment on above: Performed By: #### C BC #### [facility] [address] [place] [address] Dr. Ramses Dumas UR MICRO IND INDICATED Normal [facility] Comment on above: Performed By: #### C BC #### [facility] [address] [place] [address] Dr. Ramses Dumas Urobilinogen Qn (U) 0.2 {Lucero'U}/dL Normal 0.2 - 1. 0 [facility] Comment on above: Performed By: #### C BC #### [facility] [address] [place] [address] Dr. Ramses Dumas ETHANOL (BLD ALC)on 08-13-20 22 ALC NOTE NOTE: 80 mg/dl is th e legal limit for a blood alcohol level Normal [facility] Comment on above: Performed By: #### B LDCX2 #### [facility] [address] [place] [address] Dr. Ramses Dumas Ethanol [Mass/Vol] mg/dL Normal [facility] Comment on above: Performed By: #### B LDCX2 #### [facility] [address] [place] [address] Dr. Ramses Dumas URon 08-13-2022 , QUAL Negative Normal NEGATIVE [facility] Comment on above: Performed By: #### C BC #### [facility] [address] [place] [address] Dr. Ramses Dumas PROF 14(COMP METB)on 022 Albumin [Mass/Vol] 3.8 g/dL Normal 3.4-5.0 [facility] Comment on above: Performed By: #### U RCX #### [facility] [address] [place] [address] Dr. Ramses Dumas Albumin/Globulin [Mass ratio] 0.9 {ratio} Normal [facility] Comment on above: Performed By: #### U RCX #### [facility] [address] [address] [address] Ramses Dumas ALP [Catalytic activity/Vol] 82 U/L Normal 46-116 [facility] Comment on above: Performed By: #### U RCX #### [facility] [address] [place] [address] Dr. Ramses Dumas ALT [Catalytic activity/Vol] 41 U/L Normal 14-59 [facility] Comment on above: Performed By: #### U RCX #### [facility] [address] [place] [address] Dr. Ramses Dumas Anion gap [Moles/Vol] 9.3 mmol/L Normal [facility] Comment on above: Performed By: #### U RCX #### [facility] [address] [place] [address] Dr. Ramses Dumas AST [Catalytic activity/Vol] 21 U/L Normal 15-37 [facility] Comment on above: Performed By: #### U RCX #### [facility] [address] [place] [address] Dr. Ramses Dumas Bilirubin [Mass/Vol] 0.3 mg/dL Normal 0.2-1.0 [facility] Comment on above: Performed By: #### U RCX #### [facility] [address] [place] [address] Dr. Ramses Dumas Calcium [Mass/Vol] 8.9 mg/dL Normal 8.5-10.1 [facility] Comment on above: Performed By: #### U RCX #### [facility] [address] [place] [address] Dr. Ramses Dumas Chloride [Moles/Vol] 105 mmol/L Normal 98-107 [facility] Comment on above: Performed By: #### U RCX #### [facility] [address] [address] [address] Ramses Dumas CO2 [Moles/Vol] 28.5 mmol/L Normal 21.0-32.0 [facility] Comment on above: Performed By: #### U RCX #### [facility] [address] [address] [address] Ramses Dumas Creatinine [Mass/Vol] 0.81 mg/dL Normal 0.55-1.02 [facility] Comment on above: Performed By: #### U RCX #### [facility] [address] [address] [address] Ramses Dumas EGFR-AF NIUEAN >60 Normal >=60 [facility] Comment on above: Performed By: #### U RCX #### [facility] [address] [address] [address] Ramses Dumas EGFR-NON AF NIUEAN >60 Normal >=60 [facility] Comment on above: Performed By: #### U RCX #### [facility] [address] [address] [address] Ramses Dumas Globulin (S) [Mass/Vol] 4.1 g/dL Normal [facility] Comment on above: Performed By: #### U RCX #### [facility] [address] [address] [address] Ramses Dumas Glucose [Mass/Vol] 100 mg/dL Normal 74-106 [facility] Comment on above: Performed By: #### U RCX #### [facility] [address] [address] [address] Ramses Dumas Potassium [Moles/Vol] 3.8 mmol/L Normal 3.5-5.1 [facility] Comment on above: Performed By: #### U RCX #### [facility] [address] [address] [address] Ramses Dumas Protein [Mass/Vol] 7.9 g/dL Normal 6.4-8.2 [facility] Comment on above: Performed By: #### U RCX #### [facility] [address] [address] [address] Ramses Dumas Sodium [Moles/Vol] 139 mmol/L Normal 136-145 [facility] Comment on above: Performed By: #### U RCX #### [facility] [address] [address] [address] Ramses Dumas Urea nitrogen [Mass/Vol] 10.0 mg/dL Normal 7.0-18.0 [facility] Comment on above: Performed By: #### U RCX #### [facility] [address] [address] [address] Ramses Dumas Urea nitrogen/Creatinine [Mass ratio] 12.3 mg/mg Normal [facility] Comment on above: Performed By: #### U RCX #### [facility] [address] [place] [address] Dr. Ramsse Dumas SALICYLATEon 08-13-2022 SALICYLATE <2.8 Normal <=19.9 [facility] Comment on above: Performed By: #### U RCX #### [facility] [address] [place] [address] Dr. Ramses Dumas URINE MICROSCOPIC ONLYon BACTERIA LARGE Abnormal NONE SEEN [facility] Comment on above: Performed By: #### C BC #### [facility] [address] [place] [address] Dr. Ramses Dumas Bacteria identified Cx Nom (U) INDICATED Normal [facility] Comment on above: Performed By: #### C BC #### [facility] [address] [place] [address] Dr. Ramses uDmas CA OX CRYSTALS RARE Normal [facility] Comment on above: Performed By: #### C BC #### [facility] [address] [place] [address] Dr. Ramses Dumas CAST NONE SEEN Normal NONE SEEN [facility] Comment on above: Performed By: #### C BC #### [facility] [address] [place] [address] Dr. Ramses Dumas Crystals LM Nom (Urine sed) SEEN Abnormal NONE SEEN [facility] Comment on above: Performed By: #### C BC #### [facility] [address] [place] [address] Dr. Ramses Dumas Epithelial cells LM Ql (Urine sed) MODERATE Abnormal NONE SEEN /RARE [facility] Comment on above: Performed By: #### C BC #### [facility] [address] [place] [address] Dr. Ramses Dumas MUCOUS NONE SEEN Normal NONE SEEN [facility] Comment on above: Performed By: #### C BC #### [facility] [address] [place] [address] Dr. Ramses Dumas RBC 10-20 Abnormal 0-2 [facility] Comment on above: Performed By: #### C BC #### [facility] [address] [place] [address] Dr. Ramses Dumas WBC 20-50 Abnormal NONE SEEN [facility] Comment on above: Performed By: #### C BC #### [facility] [address] [place] [address] Dr. Ramses Dumas Pap IG,rfx Aptima HPV all pt hon 08-09-2022 . . Normal [facility] Comment on above: Performed By: #### C MP #### [facility] [address] [place] [address] Dr. Ramses Dumas DIAGNOSIS: Comment Abnormal [facility] Comment on above: Result Comment: EPIT HELIAL CELL ABNORMALITY. LOW GRADE SQUAMOUS INTRAEPITHELIAL LESION (LSIL). Performed By: #### C MP #### [facility] [address] [place] [address] Dr. Ramses Dumas Electronically signed by: Comment Normal [facility] Comment on above: Result Comment: Arnaud Joseph MD, Pathologist Performed By: #### C MP #### [facility] [address] [place] [address] Dr. Ramses Dumas HPV Aptima Negative Normal Negative [facility] Comment on above: Result Comment: This nucleic acid amplification test detects fourteen high-risk HPV types (16,18,31,33,35,39,45,51,52,56,58,59,66,68) without differentiation. Performed By: #### C MP #### [facility] [address] [address] [address] Ramses Dumas Methodology: Comment Normal [facility] Comment on above: Result Comment: This liquid based ThinPrep(R) pap test was screened with the use of an image guided system. Performed By: #### C MP #### [facility] [address] [place] [address] Dr. Ramses Dumas Note: Comment Normal [facility] Comment on above: Result Comment: The Pap smear is a screening test designed to aid in the detection of premalignant and malignant conditions of the uterine cervix. It is not a diagnostic procedure and should not be used as the sole means of detecting cervical cancer. Both false-positive and false-negative reports do occur. . Performed By: #### C MP #### [facility] [address] [place] [address] Dr. Ramses Dumas Pathologist Provided ICD10 Comment Normal [facility] Comment on above: Result Comment: [id number] Performed By: #### C MP #### [facility] [address] [place] [address] Dr. Ramses Dumas Performed by: Comment Normal [facility] Comment on above: Result Comment: Gail Ruano, Tube Handler (ASCP) Performed By: #### C MP ####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 OUTPUT: [...] was taken to Recovery Room in stable condition.[id number] Discharge instructions Follow Up Care 09/25/2022 13:54:04 With:IDALMIS BORDEN, Nona Turner, URL Address: [address] [place] [address]- When: Unknown [facility] [place] 12-01-2022 NoteOPERATIVE NOTE OPERATION DATE: 09/18/2022 PREOPERATIVE DIAGNOSIS: Left [...] usual fashion. I started by passing a 22-Citizen Of The [place] Olympus cystoscope per urethra and into the [...] gurney and wheeled to PACU in stable condition.[facility] [id number] NoteHNO ID: [id number] Author: Daniel Santiago APRN.VALET Service: ? Author Type: Nurse Practitioner Type: Progress Notes Filed: 09/04/2022 7:46 AM Note Text: The patient did not show up for this appointment. The patient did not show up for this appointment.[id number] History of Present illness Narrative* Daniel Santiago APRN.WAYNE - 09/04/2022 7:40 AM EST The patient did not show up for this appointment. The patient did not show up for this appointment. documented [facility] NotePROCEDURE: XR ANKLE LT MIN 3 V COMPARISON: None. HISTORY: Sprain of calcaneofibular ligament FINDINGS: BONES:No fracture, acute abnormality, or significant arthropathy. SOFT TISSUES:Extensive lateral soft tissue swelling EFFUSION:None visible. OTHER: Negative. IMPRESSION: Lateral soft tissue swelling. No acute fracture Electronically authenticated by: GLEN GRAFF Date: 2022-07-03 07:09[facility] Future Appointments Appointment Date:03/20/2023 10:15:00 AM Scheduled Provider:Nona VILLA MD Location:[facility] Appointment Type:URO Office Visit [facility] evaluation + Plan note Future Appointments Appointment Date:12/04/2023 09:45:00 AM Scheduled Provider:Nona VILLA MD Location:[facility] Appointment Type:URO Office Visit Diagnostic Tests Pending * Electrolyte Panel 03/20/23 [facility] evaluation note* Diagnosis NO SHOW- Primary [facility] Diagnosis Onset Date Resolution Status Bipolar disorder [facility] Work Phone: Hospital course Narrative No data available for this section [facility] progress note No data available for this section [facility] Summary Purpose Family History No Family History Records Found Relationship Condition Age at Onset Recorded Date/T leonid Not Specified Hypertension Unknown family member Suicide Unknown grandparent Suicide Unknown Advance Directives No Advanced Directives Records Found Advance Directive Response Recorded Date/ Time Advance Directives No August 13, 2022 1:51pm Chief Complaint and Reason for Visit Chief Complaint bipolar- pink slip bipolar- pink slip Reason for Visit Bipolar disorder Additional Source Comments Source Comments (unrecognize d section and content) In the event this informatio n is protected by the Federal Confidentiality of Alcohol and Drug Abuse Patient Records regulations: The Federal rules restrict any use of the information to criminally investigate or prosecute any alcohol or drug abuse patient.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 Start Date End Date Domingo Das MD [address] [place] [address] Referring Family Medicine 09/01/22 Team Status: Active Member Role Status Dates Domingo Das MD Primary Care Provider Active Team Status: Inactive Member Role Status Dates Domingo Das MD Primary Care Provider Active Start: April 08, 2024 End: April 10, 2024 Arnulfo Aviles MD Admit Provide r, Attending Provider Active Start: April 08, 2024 End: April 10, 2024 Team Status: Active Member Role Status Dates Domingo Das MD Primary Care Provider Active Start: April 09, 2024 Arnulfo Aviles MD Admit Provide r, Attending Provider, Other Provider Active Start: April 09, 2024 INFORMATION SOURCE (unrecogn ized section and content) DATE CREATED AUTHOR 09/06/2022 [facility] DATE CREATED AUTHOR AUTHOR'S ORGANIZ ATION 02/19/2023 [facility] DATE CREATED AUTHOR AUTHOR'S ORGANIZ ATION 12/06/2023 [facility] DATE CREATED AUTHOR AUTHOR'S ORGANIZ ATION 12/19/2023 [facility] DATE CREATED AUTHOR AUTHOR'S ORGANIZ ATION 04/11/2024 [facility] FOR RECORDS PERTAINING TO PATIENTS WHO ARE [...] BE BASED ON THE PRIMARY CLINICAL RECORDS. [employer] provides no warranty or guarantee of the accuracy or completeness of information in this document.
--- NOTE | 2024-04-20 22:54 | ED_ITS ---
HPI HPI - General Adult General Chief complaint: Abdominal Pain Stated complaint: Flank Pain Time Seen by Provider: 04/20/24 22:49 Source: patient Mode of arrival: walk-in Limitations: no limitations History of Present Illness HPI narrative: presents complaining of left CVA pain. past history of kidney stones. Seen by her PCP yesterday and prescribed Keflex and flomax. pain has increased. No fever or nausea. Related Data Home Medications ?Medication ?Instructions ?Recorded ?Confirmed hyoscyamine sulfate 0.125 mg tablet mg 04/20/24 tamsulosin 0.4 mg capsule mg PO 04/20/24 Allergies Allergy/AdvReac Type Severity Reaction Status Date / Time No Known Drug Allergies Allergy Verified 04/20/24 22:45 Opioid HPI Opioid Management Most Recent Opioid Data: Last Pain Scale 8 04/21/24 00:10 Last MAR Pain Assessment 04/21/24 00:10 Ur Phencyclidine Scrn Negative (NEGATIVE) 04/08/24 15:00 Review of Systems ROS Status of ROS 10 or more systems reviewed and unremark able except as noted in history and below [facility] Medical History (Updated 04/21/24 @ 00:52 by Seng Verdin MD) Anxiety and depression ?F41.9 - Anxiety disorder, unspecified (ICD-10) ?F32.A - Depression, unspecified (ICD-10) Kidney stones ?N20.0 - Calculus of kidney (ICD-10) Bipolar disorder ?F31.9 - Bipolar disorder, unspecified (ICD-10) Kidney stones ?N20.0 - Calculus of kidney (ICD-10) Surgical History (Updated 12/29/23 @ 08:54 by Chrissy Montilla) History of ultrasound guided needle biopsy ?Z98.890 - Other specified postprocedural states (ICD-10) H/O local excision of skin lesion ?Z98.890 - Other specified postprocedural states (ICD-10) S/P extracorporeal shock wave therapy (03/2023) ?Z98.890 - Other specified postprocedural states (ICD-10) History of wisdom tooth extraction ?K08.409 - Partial loss of teeth, unspecified cause, unspecified class (ICD- 10) H/O LEEP ?Z98.890 - Other specified postprocedural states (ICD-10) History of endometrial ablation ?Z98.890 - Other specified postprocedural states (ICD-10) S/P cystoscopy ?Z98.890 - Other specified postprocedural states (ICD-10) S/P ureteral stent placement ?Z96.0 - Presence of urogenital implants (ICD-10) H/O ureteroscopy ?Z98.890 - Other specified postprocedural states (ICD-10) History of cholecystectomy ?Z90.49 - Acquired absence of other specified parts of digestive tract (ICD- 10) Family History (Updated 03/30/23 @ 10:56 by Natalee Jules) Other Family history of hypertension Social History (Updated 04/24/23 @ 10:12 by Valencia Chavez NP) Within the past year, how often did you have a drink containing alcohol: monthly or less Smoking status: Never smoker Non-prescribed substance use: denies use 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 Highest level of school completed/degree received: Master's degree Are you now , , , , never or living with a partner: Gender Identity: female Exam Constitutional Vital Signs, click to edit/add: Last Vital Signs Temp 98.1 F 04/20/24 22:43 Pulse 80 04/20/24 22:43 Resp 20 04/20/24 22:43 BP 150/91 H 04/20/24 22:43 Pulse Ox 96 04/20/24 22:43 O2 Del Method Room Air 04/20/24 22:43 Common normals: average body habitus, oriented x3, no limitations, healthy appearing, alert and well nourished General appearance: in distress (mild distress) HENMT Common normals: normocephalic and head/scalp atraumatic Eye Common normals: PERRL and EOMs intact bilaterally Respiratory Common normals: normal respiratory effort, no retractions, no use of accessory muscles and clear to auscultation bilaterally Cardio Common normals: regular rate, regular rhythm, S1 normal heart sound and S2 normal heart sound GI Common normals: Normal to inspection, nondistended, normoactive bowel sounds present, soft to palpation and non-tender Back & Pelvis General back: CVA tenderness CVA tenderness: left Extremity Common normals: normal to inspection and full ROM Neuro Common normals: oriented x3, CN's II-XII intact bilaterally, moves all extr emities and no focal motor deficits Psych Appearance: grossly normal Course Vital Signs Vital signs: Vital Signs Temperature 98.1 F 04/20/24 22:43 Pulse Rate 80 04/20/24 22:43 Respiratory Rate 20 04/20/24 22:43 Blood Pressure 150/91 H 04/20/24 22:43 Pulse Oximetry 96 04/20/24 22:43 Oxygen Delivery Method Room Air 04/20/24 22:43 Temperature 98.1 F 04/20/24 22:43 Pulse Rate 80 04/20/24 22:43 Respiratory Rate 20 04/20/24 22:43 Blood Pressure 150/91 H 04/20/24 22:43 Pulse Oximetry 96 04/20/24 22:43 Oxygen Delivery Method Room Air 04/20/24 22:43 Medical Decision Making MDM Narrative Medical decision making narrative: patient presents complaining of left flank pain and possible renal colic. No fever or vomiting. States she was seen by her PCP yesterday and prescribed keflex and Flomax. Came in tonight because of increased pain. Mild left CVA tenderness. UA without evidence of infection and CT abd. without obstructing stone. CBC normal. Patient was medicated for her flank pain and is feeling better. Discharged home to follow up with her doctor Lab Data Labs: Lab Results 04/20/24 04/20/24 Range/Units 22:49 22:50 WBC 9.5 (4.0-11.0) 10^3/uL RBC 4.87 (4.20-5.40) 10^6/uL Hgb 13.6 (12.0-16.0) g/dL Hct 41.1 (36.0-48.0) % MCV 84.4 (81.0-99.0) fL MCH 27.9 (26.7-34.0) pg MCHC 33.1 (29.9-35.2) g/dL RDW 12.6 (11.0-15.0) % Plt Count 330 (150-450) 10^3/uL MPV 9.9 (9.5-13.5) fL Neut % (Auto) 58.5 (43.0-75.0) % Lymph % (Auto) 32.0 (20.5-60.0) % Crosby % (Auto) 8.6 (1.7-12.0) % Eos % (Auto) 0.3 L (0.9-7.0) % Baso % (Auto) 0.5 (0.2-2.0) % Neut # (Auto) 5.6 (1.4-6.5) 10^3/uL Lymph # (Auto) 3.0 (1.2-3.8) 10^3/uL Crosby # (Auto) 0.8 (0.3-0.8) 10^3/uL Eos # (Auto) 0.0 (0.0-0.7) 10^3/uL Baso # (Auto) 0.1 (0.0-0.1) 10^3/uL Abs Immat Gran (auto) 0.01 (0.00-0.03) 10^3/uL Imm/Tot Granulo (auto) 0.1 (0.0-0.5) % Sodium 137 (136-145) mmol/L Potassium 3.7 (3.5-5.1) mmol/L Chloride 102 (98-107) mmol/L Carbon Dioxide 27.7 (21.0-32.0) mmol/L Anion Gap 11.0 BUN 8.0 (7.0-18.0) mg/dL Creatinine 0.82 (0.55-1.02) mg/dL Est GFR ( Amer) >60 (>=60) Est GFR (Non-Af Amer) >60 (>=60) BUN/Creatinine Ratio 9.8 Glucose 115 H (74-106) mg/dL Lactate 1.3 (0.4-2.0) mmol/L Calcium 10.1 (8.5-10.1) mg/dL Urine Color Lt. yellow (YELLOW) Urine Clarity Clear (CLEAR) Urine pH 6.5 (5.0-9.0) Ur Specific Jackson 1.015 (1.005-1.025) Urine Protein Negative (NEG/TRACE) mg/dL Urine Glucose (UA) Negative (NEGATIVE) mg/dL Urine Ketones Negative (NEGATIVE) mg/dL Urine Occult Blood Small A (NEGATIVE) Urine Nitrite Negative (NEGATIVE) Urine Bilirubin Negative (NEGATIVE) Urine Urobilinogen 0.2 (0.2-1.0) EU/dL Ur Leukocyte Esterase Trace A (NEGATIVE) Urine RBC None seen (0-2) #/HPF Urine WBC 2-5 A (NONE SEEN) #/HPF Ur Squamous Epith Cells Many A (NONE/RARE) #/LPF Urine Crystals Seen A (None Seen) #/HPF Calcium Oxalate Crystal Few Amorphous Sediment Moderate Urine Bacteria None seen (NONE SEEN) #/HPF Urine Casts None seen (NONE SEEN) #/LPF Urine Mucus None seen (NONE SEEN) Ur Culture Indicated? No Imaging Data Abdominal x-ray: Radiologist's impression: ITS Impressions Abdomen/Pelvis CT 04/20/24 23:01 IMPRESSION: 1. Nonobstructing bilateral nephrolithiasis. Mild bilateral pelvocaliectasis without obstructing stone identified. Left cortical renal scarring. 2. Mild to moderate diverticulosis. 3. Evaluation for pyelonephritis is limited without intravenous contrast, correlate clinically. Electronically authenticated by: THERON PEDERSON Date: 04/21/2024 00:29 Discharge Plan Discharge Stand Alone Forms: Portal Instructions Chief Complaint: Abdominal Pain Clinical Impression: Acute left flank pain Patient Disposition: Home, Self-Care Prescriptions / Home Meds: No Action tamsulosin 0.4 mg capsule PO hyoscyamine sulfate 0.125 mg tablet Print Language: Turkmen Instructions: Flank Pain (ED) Additional Instructions: follow up with Dr Das next week Referrals: Ignacio Das MD [Primary Care Provider] - 1 week
--- NOTE | 2024-04-20 23:01 | CT_ITS ---
[address] [address] Patient Name: CORI BARRIGA MRN: [id number] date: 1990 Sex: F Assigned Patient Location: ER Current Patient Location: ER Accession/Order Number: [id number] Exam Date: 04/20/2024 23:07 Report Date: 04/21/2024 00:29 At the request of: VARGHESE CHUA Procedure: CT abdomen pelvis wo con EXAM: CT abdomen pelvis wo con HISTORY: left CVA pain. past kidney stones COMPARISON: 02/20/2024 TECHNIQUE: CT of abdomen and pelvis without intravenous contrast. Dose reduction techniques were achieved by using automated exposure control and/or adjustment of mA and/or kV according to patient size and/or use of iterative reconstruction technique. FINDINGS: Limited evaluation of the viscera/organs and vasculature without intravenous contrast. TUBES AND IMPLANTS: None. LOWER CHEST: Unremarkable ABDOMEN and PELVIS ABDOMINAL WALL AND SOFT TISSUES: Unremarkable. BONES: No suspicious lesions. ARTERIES: Incompletely evaluated. No aortoiliac aneurysm VEINS: Incompletely evaluated. LYMPH NODES: Unremarkable. PERITONEUM/ RETROPERITONEUM: Unremarkable. BOWEL: No obstruction. Mild to moderate diverticulosis APPENDIX: Unremarkable LIVER: No suspicious lesions GALLBLADDER: Surgically absent BILE DUCTS: Not dilated SPLEEN: Unremarkable. PANCREAS: Unremarkable. ADRENALS: Unremarkable. KIDNEYS/ URETERS: Nonobstructing bilateral renal calculi measuring up to 6 millimeters in the right and 5 millimeters in the left. Mild bilateral pelvocaliectasis without obstructing stone identified. Left cortical renal scarring. REPRODUCTIVE ORGANS: Uterus appears surgically absent. Bilateral ovaries appear grossly unremarkable URINARY BLADDER: Unremarkable. CT/CT abdomen pelvis wo con IMPRESSION: 1. Nonobstructing bilateral nephrolithiasis. Mild bilateral pelvocaliectasis without obstructing stone identified. Left cortical renal scarring. 2. Mild to moderate diverticulosis. 3. Evaluation for pyelonephritis is limited without intravenous contrast, correlate clinically. Electronically authenticated by: THERON PEDERSON Date: 04/21/2024 00:29
[2024-04-20 23:07] LABS: Basophils Absolute Auto 0.1 10^3/uL (0.0-0.1); Basophils Percent Auto 0.5 % (0.2-2.0); Eosinophils Percent Auto 0.3 % (0.9-7.0); Hematocrit 41.1 % (36.0-48.0); Hemoglobin 13.6 g/dL (12.0-16.0); Immature Granulocytes Abs Auto 0.01 10^3/uL (0.00-0.03); Immature Granulocytes Pct Auto 0.1 % (0.0-0.5); Mean Corpuscular HGB Conc 33.1 g/dL (29.9-35.2); Mean Corpuscular Hemoglobin 27.9 pg (26.7-34.0); Mean Corpuscular Volume 84.4 fL (81.0-99.0); Mean Platelet Volume 9.9 fL (9.5-13.5); Monocytes Absolute Auto 0.8 10^3/uL (0.3-0.8); Monocytes Percent Auto 8.6 % (1.7-12.0); Neutrophils Absolute Auto 5.6 10^3/uL (1.4-6.5); Neutrophils Percent Auto 58.5 % (43.0-75.0); Platelet Count 330 10^3/uL (150-450); Red Blood Count 4.87 10^6/uL (4.20-5.40); Red Cell Distribution Width 12.6 % (11.0-15.0); White Blood Count 9.5 10^3/uL (4.0-11.0)
[2024-04-20 23:08] LABS: Bilirubin Urine NEGATIVE (NEGATIVE); Blood Urine SMALL (NEGATIVE); Clarity Urine CLEAR (CLEAR); Color Urine LT. YELLOW (YELLOW); Glucose Urine UA NEGATIVE (NEGATIVE); Ketones Urine NEGATIVE (NEGATIVE); Leukocyte Esterase Urine TRACE (NEGATIVE); Nitrite Urine NEGATIVE (NEGATIVE); Protein Urine NEGATIVE (NEG/TRACE); Specific Gravity Urine 1.015 (1.005-1.025); Urobilinogen Urine 0.2 EU/dL (0.2-1.0); pH Urine 6.5 (5.0-9.0)
[2024-04-20 23:10] LABS: Urine Microscopic Indicated YES
[2024-04-20 23:11] LABS: BUN Creatinine Ratio 9.8; Calcium 10.1 mg/dL (8.5-10.1); Carbon Dioxide 27.7 mmol/L (21.0-32.0); Chloride 102 mmol/L (98-107); Estimated GFR (African America >60 (>=60); Estimated GFR (Non-African Ame >60 (>=60); Glucose 115 mg/dL (74-106); Potassium 3.7 mmol/L (3.5-5.1); Sodium 137 mmol/L (136-145)
[2024-04-20 23:15] LABS: Amorphous Sediment Urine MODERATE; Bacteria Urine NONE SEEN #/HPF (NONE SEEN); Calcium Oxalate Crystals Urine FEW; Cast Seen? NONE SEEN #/LPF (NONE SEEN); Crystals Seen? Seen #/HPF (None Seen); Mucus Urine NONE SEEN (NONE SEEN); RBC Urine NONE SEEN #/HPF (0-2); Squamous Epithelial Cell Urine MANY #/LPF (NONE/RARE); Urine Culture Indicated NO
[2024-04-20 23:20] LABS: Lactate/Lactic Acid 1.3 mmol/L (0.4-2.0)
[2024-04-20] MEDS: 0.9 % SODIUM CHLORIDE 1,000 ML 999 ML IV (23:20)
[2024-04-20] MEDS: KETOROLAC TROMETHAMINE 30 MG/ML VIAL IVP (23:20)
[2024-04-20] MEDS: ORPHENADRINE 60 MG/ 2 ML VIAL IV (23:20)
[2024-04-21] MEDS: MORPHINE SULFATE 4 MG/ML VIAL IV (00:10)
[2024-04-21 00:56] VITALS: BP 136/90; PULSE 70; O2SAT 98
== END 2024-04-21 00:56 | disposition home or self-care (01) ==
PROVIDERS: Emergency Provider Internal Medicine; PCP Family Medicine
DX: R10.9 Unspecified abdominal pain (principal); Z87.442 Personal history of urinary calculi
CPT/HCPCS: 36415; 74176; 80048; 81001; 83605; 85025; 96361; 96374; 96375; 99284; J1885; J2270; J2360

== ENCOUNTER 2024-04-21 14:34 | Emergency (ER) | payer OTHER, SELFPAY ==
[2024-04-21 14:38] VITALS: BP 130/96; PULSE 82; TEMP 36.7; O2SAT 99; BMI 30.6
--- OUTSIDE RECORDS SUMMARY | 2024-04-21 14:42 | XMS_ITS | CCD ---
Author Organization [facility] CliniSymo Care Team Providers Care 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 Name Role Phone Domingo Das MD Unavailable DANIEL SANTIAGO Attending Unavailable DOMINGO DAS Referring Unavailable Domingo Das Primary Care Physician [phone] L[address] Primary Care Unavailable [...] DR TOLBERT Admitting Unavailable BERNIE ., DR TOLBETR Attending Unavailable WEST, DR GLEN [employer] Consult[employer] [...] GM HERNANDEZ Consulting Unavailable BERNIE ., DR TLOBERT Admitting Unavailable HOY ., DR LANE Primary Care Unavailable BERNIE ., DR TOLBERT Attending Unavailable BERNIE ., DR TOLBERT Consulting Unavailable Nona VILLA Attending Unavailable VILLANona Attending Unavailable VILLANona R Attending Unavailable VILLANona Attending Unavailable CELIO VAN Attending Unavailable MD Domingo Das Primary Care Provider [phone] MD Arnulfo Aviles Admit Provider MD [...] 13, 2022 12:00am August 16, 2022 11:38am [place] (No Known Home Meds) (1 source) Start: 04-08-2024 [place] (No Kn own Home Meds) Active April [...] BID, # 30 tab(s), Refills(s) 3, Pharmacy: [facility]/pharmacy #[id number], 168, cm, 03/20/23 10:32:00 EDT, [...] 02-16-2023 Episodic Other aftercare (1 source) 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; Translations: [OTH SENIOR CARE CURRENT DRUG THERAPY] Onset: 02-18-2023 Episodic Other aftercare (1 source) senior care (current) use of oral hypoglycemic drugs; Translations: [SENIOR CARE USE ORAL HYPOGLYCEMIC DX] Onset: 02-18-2023 Episodic [...] 04-09-2024 Cholesterol [Mass/Vol] 150 mg/dL Normal 140-200 [facility] Comment on above: Chol less than 200 m g/dl low riskChol 201-239 mg/dl borderline riskChol 240 mg/dl and greater high risk Result Comment: Chol less than 200 mg/dl low risk Chol 201-239 mg/dl borderline risk Chol 240 mg/dl and greater high risk Performed By: #### L IPID, TSH3 wRFLX, [id number] #### [facility] [address] Cholesterol in LDL Calc [Mas s/Vol]Ordered By: Arnulfo Aviles on 04-09-2024 Cholesterol in LDL [Mass/Vol] 90 mg/dL 0-100 [facility] Comment on above: LDL ATP III CLASSIFI CATIONLDL less than 100 mg/dL OptimalLDL 100-129 mg/dL Near or above optimalLDL 130-159 mg/dL Borderline highLDL 160-189 mg/dL HighLDL greater than 189 mg/dL Very high Cholesterol in VLDL Calc [Ma ss/Vol]Ordered By: Arnulfo Aviles on 04-09-2024 Cholesterol in VLDL [Mass/Vol] 16 mg/dL [facility] ECG 12 lead ECGon 04-09-2024 ECG 12 lead ECG [facility] [place] [address] [place] [address] Electrocardiograph Report Signed Patient: Diana Barriga MR#: [id number] 55 : 1990 Acct:[id number] Age/Sex: 33 / F ADM Date: 04/08/24 Loc: Room: [address] [place] [address] Type: ADM IN Attending Dr: Arnulfo Aviles [...] Referred By: Electronically Signed By:NONA CHAWLA MD [facility] Transcribed By: MUS Signed By Lg Chawla MD 04/09/24 1521 Normal [facility] Lipid Panelon 04-09-2024 LDL Cholesterol,Calculated 90 mg/dL Normal 0-100 [facility] Comment on above: Result Comment: LDL ATP III CLASSIFICATION LDL less than 100 mg/dL Optimal LDL 100-129 mg/dL Near or above optimal LDL 130-159 mg/dL Borderline high LDL 160-189 mg/dL High LDL greater than 189 mg/dL Very high Performed By: #### L IPID, TSH3 wRFLX, [id number] #### [address] Triglyceride w/Reflex 82 mg/dL Normal 0-149 [facility] Comment on above: Result Comment: TRIG ATP III CLASSIFICATION TRIG less than 150 mg/dL Normal TRIG 150-199 mg/dL Borderline high TRIG 200-500 mg/dL High TRIG greater than 500 mg/dL Very high Standard traceable to the Center for Disease Conrtrol and Prevention (CDC) test method. Performed By: #### L IPID, TSH3 wRFLX, [id number] #### [facility] [address] [id number] [facility] VLDL CHOLESTEROL 16 mg/dL Normal [facility] Comment on above: Performed By: #### L IPID, TSH3 wRFLX, [id number] #### [facility] [address] [id number] [facility] Serum or plasma high density lipoprotein (HDL) cholesterol measurementOrdered By: Arnulfo Aviles on 04-09-2024 Cholesterol in HDL [Mass/Vol] 44 mg/dL Normal 23-92 [facility] Comment on above: HDL CHOL ATP-III CLA SSIFICATION Cardiovascular RiskHDL > or equal to 60 mg/dL LOWHDL < 40 mg/dL HIGH Result Comment: HDL CHOL ATP-III CLASSIFICATION Cardiovascular Risk HDL > or equal to 60 mg/dL LOW HDL < 40 mg/dL HIGH Performed By: #### L IPID, TSH3 wRFLX, [id number] #### [facility] [address] [place] [address] Serum or plasma total choles terol/high density lipoprotein (HDL) cholesterol mass ratOrdered By: Arnulfo Aviles on 04-09-2024 Cholesterol.total/Chol esterol in HDL [Mass ratio] 3.4 {ratio} Normal <5.0 [facility] Comment on above: Performed By: #### L IPID, TSH3 wRFLX, [id number] #### [facility] [address] [place] [address] Thyroid Stim Hormone w/Rflxo n 04-09-2024 Thyroid Stim Hormone w/Rflx 2.01 u[iU]/mL Normal 0.45-5.33 [facility] Comment on above: Performed By: #### L IPID, TSH3 wRFLX, [id number] #### [facility] [address] [place] [address] Thyrotropin [Units/volume] i n Serum or PlasmaOrdered By: Arnulfo Aviles on 04-09-2024 TSH Qn 2.01 m[IU]/L 0.45-5.33 [facility] Triglyceride [Mass/volume] i n Serum or PlasmaOrdered By: Arnulfo Aviles on 04-09-2024 Triglyceride [Mass/Vol] 82 mg/dL 0-149 [facility] Comment on above: TRIG ATP III CLASSIF ICATIONTRIG less than 150 mg/dL NormalTRIG 150-199 mg/dL Borderline highTRIG 200-500 mg/dL High TRIG greater than 500 mg/dL Very highStandard traceable to the Center for Disease Conrtrol and Prevention (CDC) test method. Vitamin D 25 Hydroxy Totalon 04-09-2024 Vitamin D 25 Hydroxy Total 26.2 ng/mL Low 30-100 [facility] Comment on above: Result Comment: THA MIN D STATUS 25([place])VITAMIN D RANGE (ng/mL) Deficient <20 Insufficient 20 to <30 Sufficient 30 to 100 Reference: Jennifer Tiwari Bischoff-Ferrari HA, et al. Evaluation,treatment, and prevention of vitamin D deficiency; an Endocrine Society clinical practice guideline. JCEM. 2010; 96(7):191-. PERFORMED BY: [facility] [address] [place] [address] PATHOLOGIST DEMAND EQUIPMENT REPAIRER AB ALCANTARA M.D. Performed By: #### L IPID, TSH3 wRFLX, [id number] #### [facility] [address] Vitamin D+Metabolites [Mass/ volume] in Serum or PlasmaOrdered By: Arnulfo Aviles on 04-09-2024 Vitamin D+Metabolites [Mass/Vol] 26.2 ng/mL 30-100 [facility] Comment on above: VITAMIN D STATUS 25( [place])VITAMIN D RANGE (ng/mL) Deficient <20 Insufficient 20 to <30Sufficient 30 to 100Reference: Jennifer Tiwari Bischoff-Ferrari HA, et al. Evaluation,treatment, and prevention of vitamin D deficiency; an Endocrine Society clinical practice guideline. JCEM. 2010; 96(7):1911-30. Axel 12-29-2023 L Specimen: [id number] Received: 12/29/23 Status: DAQUAN Moon Num: [id number] Spec Type: Surgical Subm Dr: Glen Graff MD Tissues: A BREAST CORE NO CALCS (LT BREAST 6:00) Procedures: PAS - LGRN, HE/2, Gross/Micro L4, AE1-AE3, CD68 Age/ Patient Sex Location Account Attending Physician Diana Barriga 33/F LABELL [id number] Glen Graff MD SPEC NUM: [id number] RECD: 12/29/23 STATUS: DAQUAN MOON NUM: [id number] KELBY: 12/29/23- SUBM DR: Glen Graff MD ENTERED: 12/29/23 [facility] DR: Roula,Miles Buckleyalonso Laughlino SPEC TYPE: Surgical [...] AM 12/29/2023, time out of ---- Specimen: [id number] Received: 12/29/23 Status: DAQUAN Moon Num: [id number] Spec Type: Surgical Subm Dr: Glen Graff MD Tissues: A BREAST CORE NO CALCS (LT BREAST 6:00) Procedures: PAS - LGRN, HE/2, Gross/Micro L4, AE1-AE3, CD68 ---- Patient: Diana Barriga [id number] (Continued) ---- Specimen: [id number] Received: 12/29/23 (Continued) Gross Description (Continued) Signed (signature on file) Swathi Dumas MD 12/30/23 1834 ---- Specimen: [id number] Received: 12/29/23 Status: DAQUAN Moon Num: [id number] Spec Type: Surgical Subm Dr: Glen Graff MD Tissues: A BREAST CORE NO CALCS (LT BREAST 6:00) Procedures: FIONA CORRAL, HE/2, Gross/Micro L4, AE1-AE3, CD68 ---- Patient: Diana Barriga [id number] (Continued) ---- Specimen: [id number] Received: 12/29/23 (Continued) Gross Description (Continued) formalin: 6 PM 12/29/2023. Cold Ischemia and Fixation Time meets the requirements specified in the latest version of the ASCO/CAP guidelines: Yes. Cold Ischemic Time: 0.03 Formalin Fixation Time: 9.85 CPT Codes 50561 14589 07712 85815 ---- ---- Specimen: [id number] Received: 12/29/23 Status: DAQUAN Moon Num: [id number] Spec Type: Surgical Subm Dr: Glen Graff MD Tissues: A BREAST CORE NO CALCS (LT BREAST 6:00) Procedures: PAS - LGRN, HE/2, Gross/Micro L4, AE1-AE3, CD68 ---- Patient: SdRoss grigsbyDiana Boogie [id number] (Continued) ---- Signed (signature on file) Chin-Sae Dumas MD 12/30/231833 Normal [facility] Physician [facility] Patient Letter FTon 2023 Patient Letter [facility] December 04, 2023 DIANA BARRIGA [address] [place] [address] : 1990 Dear Diana, You missed your [...] [facility] [address], [place] [address] [facility] Lab Reportson 06-05-2023 Lab Reports [id number]#1.0 0CD:127 [facility] Reminderson 04-24-2023 Reminders - From: Whitney Collier [...] the pt with the results. duplicate message [facility] Operative Reporton Operative Report [id number]#1.00 CD:127 [facility] RAD - MISCon 04-10-2023 RAD - MISC [id number]#1.0 0CD:127 [facility] Lab Reportson 04-06-2023 Lab Reports [id number]#1.0 0CD:127 [facility] Lab Reports [id number]#1.0 0CD:127 [facility] Lab Reportson 03-23-2023 Lab Reports [id number]#1.0 0CD:127 [facility] Lab Reports [id number]#1.0 0CD:127 [facility] Lab Reports [id number]#1.0 0CD:127 [facility] RAD - CT Reporton 03-23-2023 RAD - CT Report [id number] 0CD:127 [facility] RAD - CT Report [id number]#1.0 0CD:127 Normal [facility] Ambulatory Visit Summaryon 0 03-20-2023 [...] Where: [facility] [address] [place] [address]- Medications What When Instructions Unchanged olanzapine-samidorphan (Lybalvi [...] ? 8 oz (237 mL) of milk, tuqkdtw-hamshlgehkua-r airy milk, and calcium-fortifiedfruit juice. Calcium-fortified means [...] handful of b (more content not included)... [facility] Consent for Procedure/Surger yon 03-20-2023 Consent for Procedure/Surgery [id number]#1.0 0CD:127 [facility] Patient Educationon 03-20-20 23 Patient Education Nephrology [...] ? 8 oz (237 mL) of milk, kojynao-arqxtmxsscty-g airy milk, and calcium-fortifiedfruit juice. Calcium-fortified means [...] Spinach (cooked), rhubarb, beets, sweet potatoes, and Martiniquais chard. ? Peanuts. ? Potato chips, filipino fries, and baked potatoes with skin on. ? Nuts and nut products. ? Chocolate. ? If you regularly take a diuretic medicine, make sure to eat at least 1 or 2 servings of fruits or vegetables that are high in potassium each day. These include: ? Avocado. ? Banana. ? Cypress, prune, carrot, or tomato juice. ? Baked [...] fish oil, or vitamin B6. ? Take rciq-oqg-rmcrlso and prescription medicines only as told by your health care provider. These include supplements. What foods should I limit? Limit your in (more content not included)... Normal [facility] Urology Office/Clinic Noteon 03-20-2023 Urology Office/Clinic [...] Lt kidney pain. Did got to the [place] ER. DX'd & treated for UTI. (NEG [...] L. Ox slightly elevated. Pt presented to [facility] ER on 03/06/23 due to L [...] mg qd. SEs discussed. Rx sent to [facility]. -Electrolyte panel 4 weeks to the day [...] Turner, URL [facility] [address] [place] [address]- Additional Instructions: schedule R ESWL Patient Education [...] kidney s (more content not included)... Normal [facility] Comment on above: Result Comment: Elec tronically Signed By: Nona VILLA MD\.br\Date and Time Signed: 03/20/23 11:30 EDT\.br\Electronically Co-Signed By: Whitney Collier\.br\Date and Time Co-Signed: 03/20/23 11:28 EDT CBC AUTO DIFFon 02-16-2023 BASO # 0.1 103/ul Normal 0.0-0.1 [facility] Comment on above: Performed By: #### U KJ 24 #### [facility] [address] [place] [address] Dr. Ramses Dumas Basophils/100 WBC (Bld) 0.5 % Normal 0.2-2.0 [facility] Comment on above: Performed By: #### U KJ 24 #### [facility] [address] [address] [address] Ramses Dumas EO # 0.0 103/ul Normal 0.0-0.7 [facility] Comment on above: Performed By: #### U KJ 24 #### [facility] [address] [address] [address] Ramses Dumas Eosinophils/100 WBC (Bld) 0.4 % Critically low 0.9-7.0 [facility] Comment on above: Performed By: #### U KJ 24 #### [facility] [address] [place] [address] Dr. Ramses Dumas Erythrocyte distribution width (RBC) [Ratio] 13.7 % Normal 11.0-15.0 [facility] Comment on above: Performed By: #### U KJ 24 #### [facility] [address] [place] [address] Dr. Ramses Dumas Hematocrit (Bld) [Volume fraction] 45.1 % Normal 36.0-48.0 [facility] Comment on above: Performed By: #### U KJ 24 #### [facility] [address] [place] [address] Dr. Ramses Dumas Hemoglobin (Bld) [Mass/Vol] 14.3 g/dL Normal 12.0-16.0 [facility] Comment on above: Performed By: #### U KJ 24 #### [facility] [address] [place] [address] Dr. Ramses Dumas IG # 0.02 10e3/ul Normal 0.00-0.03 [facility] Comment on above: Performed By: #### U KJ 24 #### [facility] [address] [place] [address] Dr. Ramses Dumas IG % 0.2 % Normal 0.0-0.5 [facility] Comment on above: Performed By: #### U KJ 24 #### [facility] [address] [place] [address] Dr. Ramses Dumas LYMPH # 2.5 103/ul Normal 1.2-3.8 [facility] Comment on above: Performed By: #### U KJ 24 #### [facility] [address] [place] [address] Dr. Ramses Dumas Lymphocytes/100 WBC (Bld) 26.4 % Normal 20.5-60.0 [facility] Comment on above: Performed By: #### U KJ 24 #### [facility] [address] [place] [address] Dr. Ramses Dumas MANUAL DIFF REQ NO Normal [facility] Comment on above: Performed By: #### U KJ 24 #### [facility] [address] [place] [address] Dr. Ramses Dumas MCH (RBC) [Entitic mass] 25.6 pg Critically low 26.7-34.0 [facility] Comment on above: Performed By: #### U KJ 24 #### [facility] [address] [place] [address] Dr. Ramses Dumas MCHC (RBC) [Mass/Vol] 31.7 g/dL Normal 29.9-35.2 [facility] Comment on above: Performed By: #### U KJ 24 #### [facility] [address] [place] [address] Dr. Ramses Dumas MCV (RBC) [Entitic vol] 80.7 fL Critically low 81.0-99.0 [facility] Comment on above: Performed By: #### U KJ 24 #### [facility] [address] [place] [address] Dr. Ramses Dumas MONO # 0.7 103/ul Normal 0.3-0.8 [facility] Comment on above: Performed By: #### U KJ 24 #### [facility] [address] [place] [address] Dr. Ramses Dumas Monocytes/100 WBC (Bld) 7.6 % Normal 1.7-12.0 [facility] Comment on above: Performed By: #### U KJ 24 #### [facility] [address] [place] [address] Dr. Ramses Dumas NEUT # 6.1 103/ul Normal 1.4-6.5 [facility] Comment on above: Performed By: #### U KJ 24 #### [facility] [address] [place] [address] Dr. Ramses Dumas Neutrophils/100 WBC (Bld) 64.9 % Normal 43.0-75.0 [facility] Comment on above: Performed By: #### U KJ 24 #### [facility] [address] [place] [address] Dr. Ramses Dumas Platelet mean volume (Bld) [Entitic vol] 11.0 fL Normal 9.5-13.5 [facility] Comment on above: Performed By: #### U KJ 24 #### [facility] [address] [place], [place] [address] Dr. Ramses Dumas PLT 270 103/ul Normal 150-450 [facility] Comment on above: Performed By: #### U KJ 24 #### [facility] [id number] Ramses Dumas RBC 5.59 106/ul Critically high 4.20-5.40 [facility] Comment on above: Performed By: #### U KJ 24 #### [facility] [id number] Ramses Dumas WBC 9.4 103/ul Normal 4.0-11.0 [facility] Comment on above: Performed By: #### U KJ 24 #### [facility] [id number] Rams[address] Dumas [address] ABD/PELV W CONon [...] FARTUN NOVOA Date: 2023-02-16 18:21 Normal [facility] ER URINE PROFILEon 3 Bilirubin Ql (U) SMALL Abnormal NEGATIVE [facility] Comment on above: Performed By: #### C MP #### [facility] [address] [place] [address] Dr. Ramses Dumas Clarity (U) CLEAR Normal CLEAR [facility] Comment on above: Performed By: #### C MP #### [facility] [address] [place] [address] Dr. Ramses Dumas Color (U) YELLOW Normal YELLOW [facility] Comment on above: Performed By: #### C MP #### [facility] [address] [address] [address] Ramses Dumas ERUCARLOS ENRIQUE A micrscopic examination will be performed if indicated. Normal [facility] Comment on above: Performed By: #### C MP #### [facility] [address] [address] [address] Ramses Dumas Glucose Ql (U) Negative Normal NEGATIVE [facility] Comment on above: Performed By: #### C MP #### [facility] [address] [address] [address] Ramses Dumas Hemoglobin Ql (U) Negative Normal NEGATIVE [facility] Comment on above: Performed By: #### C MP #### [facility] [address] [address] [address] Ramses Dumas Ketones Ql (U) 40 mg/dl Abnormal NEGATIVE [facility] Comment on above: Performed By: #### C MP #### [facility] [address] [place] [address] Dr. Ramses Dumas LEUKOCYTES SMALL Abnormal NEGATIVE [facility] Comment on above: Performed By: #### C MP #### [facility] [address] [place] [address] Dr. Ramses Dumas Nitrite Ql (U) Negative Normal NEGATIVE [facility] Comment on above: Performed By: #### C MP #### [facility] [address] [place] [address] Dr. Ramses Dumas pH (U) 7.0 [pH] Normal 5-9 [facility] Comment on above: Performed By: #### C MP #### [facility] [address] [place] [address] Dr. Ramses Dumas Protein (U) [Mass/Vol] 30 mg/dL Abnormal NEGAT CHRIS/ TRACE [facility] Comment on above: Performed By: #### C MP #### [facility] [address] [place] [address] Dr. Ramses Dumas SPEC GRAVITY 1.020 Normal 1.005-<=1.02 5 [facility] Comment on above: Performed By: #### C MP #### [facility] [address] [place] [address] Dr. Ramses Dumas UR MICRO IND INDICATED Normal [facility] Comment on above: Performed By: #### C MP #### [facility] [address] [place] [address] Dr. Ramses Dumas Urobilinogen Qn (U) 4 {Lucero'U}/dL Abnormal 0.2 - 1.0 [facility] Comment on above: Performed By: #### C MP #### [facility] [address] [place] [address] Dr. Ramses Dumas LIPASEon 02-16-2023 Lipase [Catalytic activity/Vol] 67.0 U/L Critically low 73.0-393.0 [facility] Comment on above: Performed By: #### U RCX #### [facility] [address] [place] [address] Dr. Ramses Dumas LIVER PROFILEon 02-16-2023 Albumin [Mass/Vol] 4.1 g/dL Normal 3.4-5.0 [facility] Comment on above: Performed By: #### U RCX #### [facility] [address] [place], [place] [id number] Dr. Ramses Dumas Albumin/Globulin [Mass ratio] 1.0 {ratio} Normal [facility] Comment on above: Performed By: #### U RCX #### [facility] [address] [place] [address] Dr. Ramses Dumas ALP [Catalytic activity/Vol] 85 U/L Normal 46-116 [facility] Comment on above: Performed By: #### U RCX #### [facility] [address] [address] [address] Ramess Dumas ALT [Catalytic activity/Vol] 61 U/L Critically high 14-59 [facility] Comment on above: Performed By: #### U RCX #### [facility] [address] [place] [address] Dr. Ramses Dumas AST [Catalytic activity/Vol] 43 U/L Critically high 15-37 [facility] Comment on above: Performed By: #### U RCX #### [facility] [address] [place] [address] Dr. Ramses Dumas BILI, CONJUGATED 0.1 mg/dL Normal 0.0-0.2 [facility] Comment on above: Performed By: #### U RCX #### [facility] [address] [place] [address] Dr. Ramses Dumas Bilirubin [Mass/Vol] 0.7 mg/dL Normal 0.2-1.0 [facility] Comment on above: Performed By: #### U RCX #### [facility] [address] [place] [address] Dr. Ramses Dumas Globulin (S) [Mass/Vol] 4.2 g/dL Normal [facility] Comment on above: Performed By: #### U RCX #### [facility] [address] [place] [address] Dr. Ramses Dumas Protein [Mass/Vol] 8.3 g/dL Critically high 6.4-8.2 [facility] Comment on above: Performed By: #### U RCX #### [facility] [address] [place] [address] Dr. Ramses Dumas URon 05-01-2023 , QUAL Negative Normal NEGATIVE [facility] Comment on above: Performed By: #### C MP #### [facility] [address] [address] [address] Ramses Dumas PROF CHEM 8 (BAS METB)on Anion gap [Moles/Vol] 14.2 mmol/L Normal [facility] Comment on above: Performed By: #### U RCX #### [facility] [address] [address] [address] Ramses Dumas Calcium [Mass/Vol] 9.5 mg/dL Normal 8.5-10.1 [facility] Comment on above: Performed By: #### U RCX #### [facility] Laboratory [address] [place] [address] Dr. Ramses Dumas Chloride [Moles/Vol] 102 mmol/L Normal 98-107 [facility] Comment on above: Performed By: #### U RCX #### [facility] [address] [place] [address] Dr. Ramses Dumas CO2 [Moles/Vol] 27.5 mmol/L Normal 21.0-32.0 [facility] Comment on above: Performed By: #### U RCX #### [facility] [address] [place] [address] Dr. Ramses Dumas Creatinine [Mass/Vol] 0.71 mg/dL Normal 0.55-1.02 [facility] Comment on above: Performed By: #### U RCX #### [facility] [address] [place] [address] Dr. Ramses Dumas EGFR-AF CZECH >60 Normal >=60 [facility] Comment on above: Performed By: #### U RCX #### [facility] [address] [place] [address] Dr. Ramses Dumas EGFR-NON AF CZECH >60 Normal >=60 [facility] Comment on above: Performed By: #### U RCX #### [facility] [address] [place] [address] Dr. Ramses Dumas Glucose [Mass/Vol] 90 mg/dL Normal 74-106 [facility] Comment on above: Performed By: #### U RCX #### [facility] [address] [place] [address] Dr. Ramses Dumas Potassium [Moles/Vol] 3.7 mmol/L Normal 3.5-5.1 [facility] Comment on above: Performed By: #### U RCX #### [facility] [address] [place] [address] Dr. Ramses Dumas Sodium [Moles/Vol] 140 mmol/L Normal 136-145 [facility] Comment on above: Performed By: #### U RCX #### [facility] [address] [place] [address] Dr. Ramses Dumas Urea nitrogen [Mass/Vol] 6.0 mg/dL Critically low 7.0-18.0 [facility] Comment on above: Performed By: #### U RCX #### [facility] [address] [place] [address] Dr. Ramses Dumas Urea nitrogen/Creatinine [Mass ratio] 8.5 mg/mg Normal [facility] Comment on above: Performed By: #### U RCX #### [facility] [address] [place] [address] Dr. Ramses Dumas URINE MICROSCOPIC ONLYon BACTERIA NONE SEEN Normal NONE SEEN [facility] Comment on above: Performed By: #### U KJ 24 #### [facility] [address] [place] [address] Dr. Ramses Dumas Bacteria identified Cx Nom (U) NOT INDICATED Normal [facility] Comment on above: Performed By: #### U KJ 24 #### [facility] [address] [place] [address] Dr. Ramses Dumas CAST NONE SEEN Normal NONE SEEN [facility] Comment on above: Performed By: #### U KJ 24 #### [facility] [address] [place] [address] Dr. Ramses Dumas Crystals LM Nom (Urine sed) NONE SEEN Normal NONE SEEN [facility] Comment on above: Performed By: #### U KJ 24 #### [facility] [address] [place] [address] Dr. Ramses Dumas Epithelial cells LM Ql (Urine sed) FEW Abnormal NONE SEEN /RARE [facility] Comment on above: Performed By: #### U KJ 24 #### [facility] [address] [place] [address] Dr. Ramses Dumas MUCOUS SMALL Abnormal NONE SEEN [facility] Comment on above: Performed By: #### U KJ 24 #### [facility] [address] [place] [address] Dr. Ramses Dumas RBC NONE SEEN Abnormal 0-2 [facility] Comment on above: Performed By: #### U KJ 24 #### [facility] [address] [place] [address] Dr. Ramses Dumas WBC 0-2 Abnormal NONE SEEN [facility] Comment on above: Performed By: #### U KJ 24 #### [facility] [address] [place] [address] Dr. Ramses Dumas PAP ACOG PANEL 2: 30 to 65on 02-10-2023 . . Normal [facility] Comment on above: Result Comment: Perf ormed at: WB Performed By: #### U RCX #### [facility] [address] [place] [address] Dr. Ramses Dumas Age Gdln ACOG Testing 30-65 [facility] Comment on above: Performed By: #### U RCX #### [facility] [address] [place] [address] Dr. Ramses Dumas DIAGNOSIS: Comment Normal [facility] Comment on above: Result Comment: NEGA TIVE FOR INTRAEPITHELIAL LESION OR MALIGNANCY. REACTIVE CELLULAR CHANGES AND/OR REPAIR ARE PRESENT. Performed at: WB Performed By: #### U RCX #### [facility] [address] [place] [address] Dr. Ramses Dumas Electronically signed by: Comment Normal [facility] Comment on above: Result Comment: Chelsey Boston MD, Pathologist Performed at: WB Performed By: #### U RCX #### [facility] [address] [place] [address] Dr. Ramses Dumas HPV Aptima Negative Normal Negative [facility] Comment on above: Result Comment: This nucleic acid amplification test detects fourteen high-risk HPV types (16,18,31,33,35,39,45,51,52,56,58,59,66,68) without differentiation. Performed at: =G Performed By: #### U RCX #### [facility] [address] [address] [address] Ramses Dumas HPV Genotype Reflex Comment Normal [facility] Comment on above: Result Comment: Crit erli not met, HPV Genotype not performed. Performed at: WB Performed By: #### U RCX #### [facility] [address] [place] [address] Dr. Ramses Dumas Methodology: Comment Normal [facility] Comment on above: Result Comment: This liquid based ThinPrep(R) pap test was screened with the use of an image guided system. Performed at: WB Performed By: #### U RCX #### [facility] [address] [place] [address] Dr. Ramses Dumas Note: Comment Normal [facility] Comment on above: Result Comment: [...] WB Performed By: #### U RCX #### [facility] [address] [place] [address] Dr. Ramses Dumas Performed by: Comment Normal [facility] Comment on above: Result Comment: Cuca Briceno, Communications Station Manager (ASCP) Performed at: WB Performed By: #### U RCX #### [facility] [address] [place], [place] [id number] Dr. Ramses Dumas Specimen adequacy: Comment Normal [facility] Comment on above: Result Comment: Sati sfactory for evaluation. Endocervical and/or squamous metaplastic cells (endocervical component) are present. Performed at: WB Performed By: #### U RCX #### [facility] [address] [place] [address] Dr. Ramses Dumas Lab Reportson 12-29-2022 Lab Reports [id number] 0CD:127 Normal [facility] RAD - MISCon 12-21-2022 RAD - MISC [id number] 0CD:127 Normal [facility] OXALATE 24HR URINEon 023 Oxalates, Urine 44 mg/L Normal Undefined [facility] Comment on above: Performed By: #### U KJ 24 #### [facility] [address] [place] [address] Dr. Ramses Dumas Oxalates, Urine 24hr 44 mg/24 hr Critically high [facility] Comment on above: Performed By: #### U KJ 24 #### [facility] [address] [place] [address] Dr. Ramses Dumas CITRATE URINE 24HRon 023 Citric Acid, U, 24hr 658 mg/24 hr Normal 320-1240 [facility] Comment on above: Result Comment: This test was developed and its performance characteristics determined by [employer]. It has not been cleared or approved by the Food and Drug Administration. Performed By: #### C ITRATU #### [facility] [address] [place] [address] Dr. Ramses Dumas Citric Acid, Urine 658 mg/L Normal Undefined [facility] Comment on above: Performed By: #### C ITRATU #### [facility] [address] [place] [address] Dr. Ramses Dumas MAGNESIUM 24HR URINEon 12-17 Magnesium 24hr Urine 119.0 mg/24 hr Normal 12.0-293.0 [facility] Comment on above: Performed By: #### U RCX #### [facility] [address] [place] [address] Dr. Ramses Dumas Magnesium UR 11.9 mg/dL Normal Not Estab. [facility] Comment on above: Performed By: #### U RCX #### [facility] [address] [address] [address] Ramses Dumas PHOSPHORUS 24HR URINEon Phosphorus, Urine 81.4 mg/dL Normal Not Estab. [facility] Comment on above: Performed By: #### B LDCX2 #### [facility] [address] [place] [address] Dr. Ramses Dumas Phosphorus, Urine 24hr 814 mg/24 hr Normal 261-1078 [facility] Comment on above: Performed By: #### B LDCX2 #### [facility] [address] [place] [address] Dr. Ramses Dumas PTH INTACTon 12-17-2022 PTH, Intact 46 pg/mL Normal 15-65 [facility] Comment on above: Performed By: #### U RCX #### [facility] [address] [place] [address] Dr. Ramses Dumas URIC ACID 24 HR URINEon Uric Acid, Urine 69.9 mg/dL Normal Not Estab. [facility] Comment on above: Performed By: #### U KJ 24 #### [facility] [address] [place] [address] Dr. Ramses Dumas Uric Acid, Urine 24hr 699.0 mg/24 hr Normal 173.7-902. 1 [facility] Comment on above: Performed By: #### U KJ 24 #### [facility] [address] [place] [address] Dr. Ramses Dumas BUNon 12-16-2022 Urea nitrogen [Mass/Vol] 7.0 mg/dL Normal 7.0-18.0 [facility] Comment on above: Performed By: #### C BC #### [facility] [address] [place] [address] Dr. Ramses Dumas CALCIUMon 12-16-2022 Calcium [Mass/Vol] 8.8 mg/dL Normal 8.5-10.1 [facility] Comment on above: Performed By: #### C BC #### [facility] [address] [place] [address] Dr. Ramses Dmuas CALCIUM 24 HR URINEon 2022 CALC, 24 HR UR 295.0 mg/24 hr Normal 100.0-300.0 [facility] Comment on above: Performed By: #### B LDCX2 #### [facility] [address] [place] [address] Dr. Ramses Dumas UR CALCIUM 29.5 mg/dL Critically high 5.1-21.0 [facility] Comment on above: Performed By: #### B LDCX2 #### [facility] [address] [place] [address] Dr. Ramses Dumas CHLORIDEon 12-16-2022 Chloride [Moles/Vol] 105 mmol/L Normal 98-107 [facility] Comment on above: Performed By: #### C BC #### [facility] [address] [place] [address] Dr. Ramses Dumas CO2on 12-16-2022 CO2 [Moles/Vol] 26.4 mmol/L Normal 21.0-32.0 [facility] Comment on above: Performed By: #### C MP #### [facility] [address] [place] [address] Dr. Ramses Dumas CREA 24 HR URINEon 3 CREA, 24 HR UR 2337.30 mg/24 hr Critically high 800.00 -1,800 .00 [facility] Comment on above: Performed By: #### C VDTBH #### [facility] [address] [place] [address] Dr. Ramses Dumas URINE CREAT 233.73 mg/dL Normal 20.00-300.00 [facility] Comment on above: Performed By: #### C VDTBH #### [facility] [address] [place] [address] Dr. Ramses Dumas CREATININEon 12-16-2022 Creatinine [Mass/Vol] 0.70 mg/dL Normal 0.55-1.02 [facility] Comment on above: Performed By: #### C MP #### [facility] [address] [place] [address] Dr. Ramses Dumas EGFR-AF CZECH >60 Normal >=60 [facility] Comment on above: Performed By: #### C MP #### [facility] [address] [place] [address] Dr. Ramses Duams EGFR-NON AF CZECH >60 Normal >=60 [facility] Comment on above: Performed By: #### C MP #### [facility] [address] [place] [address] Dr. Ramses Dumas NAon 12-16-2022 Sodium [Moles/Vol] 139 mmol/L Normal 136-145 [facility] Comment on above: Performed By: #### C MP #### [facility] [address] [place] [address] Dr. Ramses Dumas POTASSIUMon 12-16-2022 Potassium [Moles/Vol] 4.0 mmol/L Normal 3.5-5.1 [facility] Comment on above: Performed By: #### C MP #### [facility] [address] [place] [address] Dr. Ramses Dumas SODIUM 24 HR URINEon 023 NA, 24 HR UR 193 mmol/24 hr Normal 40-220 [facility] Comment on above: Performed By: #### C VDTBH #### [facility] [address] [place] [address] Dr. Ramses Dumas Sodium (U) [Moles/Vol] 193 mmol/L Critically high 30-90 [facility] Comment on above: Performed By: #### C VDTBH #### [facility] [address] [place] [address] Dr. Ramses Dumas UR TOT VOL 1000 ml/24 HR Normal [facility] Comment on above: Performed By: #### C VDTBH #### [facility] [address] [place] [address] Dr. Ramses Dumas Performed By: #### B LDCX2 #### [facility] [address] [place] [address] Dr. Ramses Dumas URIC ACID SERUMon 12-16-2022 Urate [Mass/Vol] 5.6 mg/dL Normal 2.6-6.0 [facility] Comment on above: Performed By: #### C MP #### [facility] [address] [address] [address] Ramses Dumas XR KUB 1 VIEWon [...] JENNIFER GATES Date: 2022-12-15 08:26 Normal [facility] CBC AUTO DIFFon 11-07-2022 BASO # 0.0 103/ul Normal 0.0-0.1 [facility] Comment on above: Performed By: #### U RCX #### [facility] [address] [place] [address] Dr. Ramses Dumas Basophils/100 WBC (Bld) 0.7 % Normal 0.2-2.0 [facility] Comment on above: Performed By: #### U RCX #### [facility] [address] [place] [address] Dr. Ramses Dumas EO # 0.1 103/ul Normal 0.0-0.7 [facility] Comment on above: Performed By: #### U RCX #### [facility] [address] [place] [address] Dr. Ramses Dumas Eosinophils/100 WBC (Bld) 1.9 % Normal 0.9-7.0 [facility] Comment on above: Performed By: #### U RCX #### [facility] [address] [place] [address] Dr. Ramses Dumas Erythrocyte distribution width (RBC) [Ratio] 13.6 % Normal 11.0-15.0 [facility] Comment on above: Performed By: #### U RCX #### [facility] [address] [address] [address] Ramses Dumas Hematocrit (Bld) [Volume fraction] 37.3 % Normal 36.0-48.0 [facility] Comment on above: Performed By: #### U RCX #### [facility] [address] [address] [address] Ramses Dumas Hemoglobin (Bld) [Mass/Vol] 12.2 g/dL Normal 12.0-16.0 [facility] Comment on above: Performed By: #### U RCX #### [facility] [address] [place] [address] Dr. Ramses Dumas IG # 0.02 10e3/ul Normal 0.00-0.03 [facility] Comment on above: Performed By: #### U RCX #### [facility] [address] [place] [address] Dr. Ramses Dumas IG % 0.3 % Normal 0.0-0.5 [facility] Comment on above: Performed By: #### U RCX #### [facility] [address] [place] [address] Dr. Ramses Dumas LYMPH # 2.3 103/ul Normal 1.2-3.8 [facility] Comment on above: Performed By: #### U RCX #### [facility] [address] [place] [address] Dr. Ramses Dumas Lymphocytes/100 WBC (Bld) 39.6 % Normal 20.5-60.0 [facility] Comment on above: Performed By: #### U RCX #### [facility] [address] [place] [address] Dr. Ramses Dumas MANUAL DIFF REQ NO Normal [facility] Comment on above: Performed By: #### U RCX #### [facility] [address] [place] [address] Dr. Ramses Dumas MCH (RBC) [Entitic mass] 26.4 pg Critically low 26.7-34.0 [facility] Comment on above: Performed By: #### U RCX #### [facility] [address] [address] [address] Ramses Dumas MCHC (RBC) [Mass/Vol] 32.7 g/dL Normal 29.9-35.2 [facility] Comment on above: Performed By: #### U RCX #### [facility] [address] [address] [address] Ramses Dumas MCV (RBC) [Entitic vol] 80.7 fL Critically low 81.0-99.0 [facility] Comment on above: Performed By: #### U RCX #### [facility] [address] [address] [address] Ramses Dumas MONO # 0.5 103/ul Normal 0.3-0.8 [facility] Comment on above: Performed By: #### U RCX #### [facility] [address] [place] [address] Dr. Ramses Dumas Monocytes/100 WBC (Bld) 8.0 % Normal 1.7-12.0 [facility] Comment on above: Performed By: #### U RCX #### [facility] [address] [place] [address] Dr. Ramses Dumas NEUT # 2.9 103/ul Normal 1.4-6.5 [facility] Comment on above: Performed By: #### U RCX #### [facility] [address] [place] [address] Dr. Ramses Dumas Neutrophils/100 WBC (Bld) 49.5 % Normal 43.0-75.0 [facility] Comment on above: Performed By: #### U RCX #### [facility] [address] [address] [address] Ramses Dumas Platelet mean volume (Bld) [Entitic vol] 9.0 fL Critically low 9.5-13.5 [facility] Comment on above: Performed By: #### U RCX #### [facility] [address] [place] [address] Dr. Ramses Dumas PLT 337 103/ul Normal 150-450 [facility] Comment on above: Performed By: #### U RCX #### [facility] [address] [address] [address] Ramses Dumas RBC 4.62 106/ul Normal 4.20-5.40 [facility] Comment on above: Performed By: #### U RCX #### [facility] [address] [place] [address] Dr. Ramses Dumas WBC 5.9 103/ul Normal 4.0-11.0 [facility] Comment on above: Performed By: #### U RCX #### [facility] [address] [place] [address] Dr. Ramses Dumas POINT OF CARE GLUCOSEon 10-20 Glucose [Mass/Vol] 115 mg/dL Critically high 74-106 [facility] Comment on above: Performed By: #### C VDTBH #### [facility] [address] [place] [address] Dr. Ramses Dumas PREG QUANT HCGon 11-07-2022 HCG QUANT <1 Normal [facility] Comment on above: Performed By: #### C VDTBH #### [facility] [address] [place] [address] Dr. Ramses Dumas HCG RANGE SEE BELOW Normal [facility] Comment on above: Result Comment: 5-50 0.2-1 WEEK 50-500 1-2 WEEKS 100-5,000 2-3 WEEKS 500-10,000 3-4 WEEKS 1,000-50,000 4-5 WEEKS 10,000-100,000 5-6 WEEKS 15,000-200,000 6-8 WEEKS 10,000-100,000 2-3 MONTHS Performed By: #### C VDTBH #### [facility] [address] [place] [address] Dr. Ramses Dumas US PELVIS AND TRANSVAGon [...] cm right ovarian simple cyst Normal [facility] CBC AUTO DIFFon 11-03-2022 BASO # 0.1 103/ul Normal 0.0-0.1 [facility] Comment on above: Performed By: #### U RCX #### [facility] [address] [address] [address] Ramses Dumas Basophils/100 WBC (Bld) 0.8 % Normal 0.2-2.0 [facility] Comment on above: Performed By: #### U RCX #### [facility] [address] [address] [address] Ramses Dumas EO # 0.1 103/ul Normal 0.0-0.7 [facility] Comment on above: Performed By: #### U RCX #### [facility] [address] [address] [address] Ramses Dumas Eosinophils/100 WBC (Bld) 1.4 % Normal 0.9-7.0 [facility] Comment on above: Performed By: #### U RCX #### [facility] [address] [address] [address] Ramses Dumas Erythrocyte distribution width (RBC) [Ratio] 13.4 % Normal 11.0-15.0 [facility] Comment on above: Performed By: #### U RCX #### [facility] [address] [address] [address] Ramses Dumas Hematocrit (Bld) [Volume fraction] 38.8 % Normal 36.0-48.0 [facility] Comment on above: Performed By: #### U RCX #### [facility] [address] [address] [address] Ramses Dumas Hemoglobin (Bld) [Mass/Vol] 12.7 g/dL Normal 12.0-16.0 [facility] Comment on above: Performed By: #### U RCX #### [facility] [address] [place] [address] Dr. Ramses Dumas IG # 0.01 10e3/ul Normal 0.00-0.03 [facility] Comment on above: Performed By: #### U RCX #### [facility] [address] [place] [address] Dr. Ramses Dumas IG % 0.1 % Normal 0.0-0.5 [facility] Comment on above: Performed By: #### U RCX #### [facility] [address] [place] [address] Dr. Ramses Dumas LYMPH # 1.9 103/ul Normal 1.2-3.8 [facility] Comment on above: Performed By: #### U RCX #### [facility] [address] [place] [address] Dr. Ramses Dumas Lymphocytes/100 WBC (Bld) 26.4 % Normal 20.5-60.0 [facility] Comment on above: Performed By: #### U RCX #### [facility] [address] [place] [address] Dr. Ramses Dumas MANUAL DIFF REQ NO Normal [facility] Comment on above: Performed By: #### U RCX #### [facility] [address] [place] [address] Dr. Ramses Dumas MCH (RBC) [Entitic mass] 26.3 pg Critically low 26.7-34.0 [facility] Comment on above: Performed By: #### U RCX #### [facility] [address] [place] [address] Dr. Ramses Dumas MCHC (RBC) [Mass/Vol] 32.7 g/dL Normal 29.9-35.2 [facility] Comment on above: Performed By: #### U RCX #### [facility] [address] [address] [address] Ramses Dumas MCV (RBC) [Entitic vol] 80.5 fL Critically low 81.0-99.0 [facility] Comment on above: Performed By: #### U RCX #### [facility] [address] [address] [address] Ramses Dumas MONO # 0.6 103/ul Normal 0.3-0.8 [facility] Comment on above: Performed By: #### U RCX #### [facility] [address] [place] [address] Dr. Ramses Dumas Monocytes/100 WBC (Bld) 8.2 % Normal 1.7-12.0 [facility] Comment on above: Performed By: #### U RCX #### [facility] [address] [place] [address] Dr. Ramses Dumas NEUT # 4.5 103/ul Normal 1.4-6.5 [facility] Comment on above: Performed By: #### U RCX #### [facility] [address] [place] [address] Dr. Ramses Dumas Neutrophils/100 WBC (Bld) 63.1 % Normal 43.0-75.0 [facility] Comment on above: Performed By: #### U RCX #### [facility] [address] [place] [address] Dr. Ramses Dumas Platelet mean volume (Bld) [Entitic vol] 8.9 fL Critically low 9.5-13.5 [facility] Comment on above: Performed By: #### U RCX #### [facility] [address] [place] [address] Dr. Ramses Dumas PLT 340 103/ul Normal 150-450 [facility] Comment on above: Performed By: #### U RCX #### [facility] [address] [place] [address] Dr. Ramses Dumas RBC 4.82 106/ul Normal 4.20-5.40 [facility] Comment on above: Performed By: #### U RCX #### [facility] [address] [place] [address] Dr. Ramses Dumas WBC 7.1 103/ul Normal 4.0-11.0 [facility] Comment on above: Performed By: #### U RCX #### [facility] [address] [place] [address] Dr. Ramses Dumas [facility]on 10-19 SARS-CoV-2 (COVID-19) RNA FRANCESCA+probe Ql (Unsp spec) Not detected Normal NOT DETECTED [facility] Comment on above: Result Comment: This test is not yet approved or cleared by the [place] FDA. When there are no FDA-approved or cleared tests available, and other criteria are met, FDA can make tests available under an emergency access mechanism called an Emergency Use Authorization (EUA). The EUA for this test is supported by the [place] of Health and Human Service's (HHS's) declaration [...] SARS-CoV-2. Performed By: #### U RCX #### [facility] [address] [place] [address] Dr. Ramses Dumas FREE T4on 11-03-2022 Free T4 [Mass/Vol] 0.99 ng/dL Normal 0.76-1.46 [facility] Comment on above: Performed By: #### B LDCX2 #### [facility] [address] [place] [address] Dr. Ramses Dumas GLYCOHEMOGLOBIN A1Con 2022 ADA RECOMMENDATION SEE BELOW Normal [facility] Comment on above: Result Comment: ADA RECOMMENDED LIMIT 4.0 - 6.0 ADA THERAPEUTIC TARGET < 7.0 ACTION SUGGESTED > 7.0 Performed By: #### C VDTBH #### [facility] [address] [place] [address] Dr. Ramses Dumas Glucose [Mass/Vol] 117 mg/dL Normal [facility] Comment on above: Performed By: #### C VDTBH #### [facility] [address] [place] [address] Dr. Ramses Dumas HbA1c (Bld) [Mass fraction] 5.7 % Normal 4.5-6.2 [facility] Comment on above: Performed By: #### C VDTBH #### [facility] [address] [place] [address] Dr. Ramses Dumas PROTIMEon 11-03-2022 INR Coag (PPP) [Relative time] 0.97 {INR} Normal [facility] Comment on above: Performed By: #### U KJ 24 #### [facility] [address] [place] [address] Dr. Ramses Dumas INR GUIDELINES SEE BELOW Normal [facility] Comment on above: Result Comment: TOÑA RED INR: 2.0 - 3.0 CONDITIONS NOT LISTED BELOW 2.5 - 3.5 FOR PROSTHETIC HEART VALVE REPLACEMENT 2.5 - 3.5 RECURRENT THROMBOSIS Performed By: #### U KJ 24 #### [facility] [address] [place] [address] Dr. Ramses Dumas PT Coag (PPP) [Time] 10.3 s Normal 9.0-11.6 [facility] Comment on above: Performed By: #### U KJ 24 #### [facility] [address] [place] [address] Dr. Ramses Dumas PTTon 11-03-2022 aPTT Coag (Bld) [Time] 27.7 s Normal 22.3-36.2 [facility] Comment on above: Performed By: #### U KJ 24 #### [facility] [address] [place] [address] Dr. Ramses Dumas TSHon 11-03-2022 TSH 0.667 uIU/mL Normal 0.358-3.740 [facility] Comment on above: Performed By: #### C VDTBH #### [facility] [address] [place] [address] Dr. Ramses Dumas PREG HCG QUALon 09-18-2022 , QUAL Negative Normal NEGATIVE [facility] Comment on above: Performed By: #### U KJ 24 #### [facility] [address] [place] [address] Dr. Ramses Dumas [facility]20 SARS-CoV-2 (COVID-19) RNA FRANCESCA+probe Ql (Unsp spec) Not detected Normal NOT DETECTED [facility] Comment on above: Result Comment: This test is not yet approved or cleared by the [place] FDA. When there are no FDA-approved or cleared tests available, and other criteria are met, FDA can make tests available under an emergency access mechanism called an Emergency Use Authorization (EUA). The EUA for this test is supported by the [place] of Health and Human Service's (HHS's) declaration [...] SARS-CoV-2. Performed By: #### C VDTBH #### [facility] [address] [place] [address] Dr. Ramses Dumas CBC AUTO DIFFon 09-05-2022 BASO # 0.1 103/ul Normal 0.0-0.1 [facility] Comment on above: Performed By: #### B LDCX2 #### [facility] [address] [place] [address] Dr. Ramses Dumas Basophils/100 WBC (Bld) 0.7 % Normal 0.2-2.0 [facility] Comment on above: Performed By: #### B LDCX2 #### [facility] [address] [place] [address] Dr. Ramses Dumas EO # 0.2 103/ul Normal 0.0-0.7 [facility] Comment on above: Performed By: #### B LDCX2 #### [facility] [address] [place] [address] Dr. Ramses Dumas Eosinophils/100 WBC (Bld) 2.2 % Normal 0.9-7.0 [facility] Comment on above: Performed By: #### B LDCX2 #### [facility] [address] [place] [address] Dr. Ramses Dumas Erythrocyte distribution width (RBC) [Ratio] 13.9 % Normal 11.0-15.0 [facility] Comment on above: Performed By: #### B LDCX2 #### [facility] [address] [place] [address] Dr. Ramses Dumas Hematocrit (Bld) [Volume fraction] 38.8 % Normal 36.0-48.0 [facility] Comment on above: Performed By: #### B LDCX2 #### [facility] [address] [place] [address] Dr. Ramses Dumas Hemoglobin (Bld) [Mass/Vol] 12.6 g/dL Normal 12.0-16.0 [facility] Comment on above: Performed By: #### B LDCX2 #### [facility] [address] [place] [address] Dr. Ramses Dumas IG # 0.03 10e3/ul Normal 0.00-0.03 [facility] Comment on above: Performed By: #### B LDCX2 #### [facility] [address] [place] [address] Dr. Ramses Dumas IG % 0.3 % Normal 0.0-0.5 [facility] Comment on above: Performed By: #### B LDCX2 #### [facility] [address] [place] [address] Dr. Ramses Dumas LYMPH # 2.3 103/ul Normal 1.2-3.8 [facility] Comment on above: Performed By: #### B LDCX2 #### [facility] [address] [place] [address] Dr. Ramses Dumas Lymphocytes/100 WBC (Bld) 21.3 % Normal 20.5-60.0 [facility] Comment on above: Performed By: #### B LDCX2 #### [facility] [address] [place] [address] Dr. Ramses Dumas MANUAL DIFF REQ NO Normal [facility] Comment on above: Performed By: #### B LDCX2 #### [facility] [address] [place] [address] Dr. Ramses Dumas MCH (RBC) [Entitic mass] 26.4 pg Critically low 26.7-34.0 [facility] Comment on above: Performed By: #### B LDCX2 #### [facility] [address] [place] [address] Dr. Ramses Dumas MCHC (RBC) [Mass/Vol] 32.5 g/dL Normal 29.9-35.2 [facility] Comment on above: Performed By: #### B LDCX2 #### [facility] [address] [place] [address] Dr. Ramses Dumas MCV (RBC) [Entitic vol] 81.2 fL Normal 81.0-99.0 [facility] Comment on above: Performed By: #### B LDCX2 #### [facility] [address] [place] [address] Dr. Ramses Dumas MONO # 0.8 103/ul Normal 0.3-0.8 [facility] Comment on above: Performed By: #### B LDCX2 #### [facility] [address] [place] [address] Dr. Ramses Dumas Monocytes/100 WBC (Bld) 7.4 % Normal 1.7-12.0 [facility] Comment on above: Performed By: #### B LDCX2 #### [facility] [address] [place] [address] Dr. Ramses Dumas NEUT # 7.3 103/ul Critically high 1.4-6.5 [facility] Comment on above: Performed By: #### B LDCX2 #### [facility] [address] [address] [address] Ramses Dumas Neutrophils/100 WBC (Bld) 68.1 % Normal 43.0-75.0 [facility] Comment on above: Performed By: #### B LDCX2 #### [facility] [address] [address] [address] Ramses Dumas Platelet mean volume (Bld) [Entitic vol] 8.8 fL Critically low 9.5-13.5 [facility] Comment on above: Performed By: #### B LDCX2 #### [facility] [address] [address] [address] Ramses Dumas PLT 323 103/ul Normal 150-450 [facility] Comment on above: Performed By: #### B LDCX2 #### [facility] [address] [place] [address] Dr. Ramses Dumas RBC 4.78 106/ul Normal 4.20-5.40 [facility] Comment on above: Performed By: #### B LDCX2 #### [facility] [address] [address] [address] Ramsse Dumas WBC 10.7 103/ul Normal 4.0-11.0 [facility] Comment on above: Performed By: #### B LDCX2 #### [facility] [address] [address] [address] Ramses Dumas CULTURE URINEon 09-05-2022 CULTURE URINE Culture Observations : LIGHT GROWTH OF MIXED GENITAL DAIANA. NO POTENTIAL PATHOGENS SEEN. Normal [facility] Comment on above: Performed By: #### U RCX #### [facility] [address] [address] [address] Ramses Dumas ER URINE PROFILEon Bilirubin Ql (U) Negative Normal NEGATIVE [facility] Comment on above: Performed By: #### B LDCX2 #### [facility] [address] [place] [address] Dr. Ramses Dumas Clarity (U) CLOUDY Abnormal CLEAR [facility] Comment on above: Performed By: #### B LDCX2 #### [facility] [address] [place] [address] Dr. Ramses Dumas Color (U) YELLOW Normal YELLOW [facility] Comment on above: Performed By: #### B LDCX2 #### [facility] [address] [place] [address] Dr. Ramses DELEON A micrscopic examination will be performed if indicated. Normal [facility] Comment on above: Performed By: #### B LDCX2 #### [facility] [address] [place] [address] Dr. Ramses Dumas Glucose Ql (U) Negative Normal NEGATIVE [facility] Comment on above: Performed By: #### B LDCX2 #### [facility] [address] [place] [address] Dr. Ramses Dumas Hemoglobin Ql (U) LARGE Abnormal NEGATIVE [facility] Comment on above: Performed By: #### B LDCX2 #### [facility] [address] [place] [address] Dr. Ramses Dumas Ketones Ql (U) Negative Normal NEGATIVE [facility] Comment on above: Performed By: #### B LDCX2 #### [facility] [address] [place] [address] Dr. Ramses Dumas LEUKOCYTES SMALL Abnormal NEGATIVE [facility] Comment on above: Performed By: #### B LDCX2 #### [facility] [address] [place] [address] Dr. Ramses Dumas Nitrite Ql (U) Negative Normal NEGATIVE [facility] Comment on above: Performed By: #### B LDCX2 #### [facility] [address] [place] [address] Dr. Ramses Dumas pH (U) 6.0 [pH] Normal 5-9 [facility] Comment on above: Performed By: #### B LDCX2 #### [facility] [address] [place] [address] Dr. Ramses Dumas Protein (U) [Mass/Vol] 100 mg/dL Abnormal NEGAT CHRIS/ TRACE [facility] Comment on above: Performed By: #### B LDCX2 #### [facility] [address] [address] [address] Ramses Dumas SPEC GRAVITY >=1.030 Abnormal 1.005-<=1.02 5 [facility] Comment on above: Performed By: #### B LDCX2 #### [facility] [address] [address] [address] Ramses Dumas UR MICRO IND INDICATED Normal [facility] Comment on above: Performed By: #### B LDCX2 #### [facility] [address] [address] [address] Ramses Dumas Urobilinogen Qn (U) 0.2 {Lucero'U}/dL Normal 0.2 - 1. 0 [facility] Comment on above: Performed By: #### B LDCX2 #### [facility] [address] [place] [address] Dr. Ramses Dumas URon 09-05-2022 , QUAL Negative Normal NEGATIVE [facility] Comment on above: Performed By: #### B LDCX2 #### [facility] [address] [place] [address] Dr. Ramses Dumas PROF CHEM 8 (BAS METB)on Anion gap [Moles/Vol] 11.7 mmol/L Normal [facility] Comment on above: Performed By: #### C MP #### [facility] [address] [place] [address] Dr. Ramses Dumas Calcium [Mass/Vol] 9.1 mg/dL Normal 8.5-10.1 [facility] Comment on above: Performed By: #### C MP #### [facility] [address] [address] [address] Ramses Dumas Chloride [Moles/Vol] 103 mmol/L Normal 98-107 [facility] Comment on above: Performed By: #### C MP #### [facility] [address] [place] [address] Dr. Ramses Dumas CO2 [Moles/Vol] 25.9 mmol/L Normal 21.0-32.0 [facility] Comment on above: Performed By: #### C MP #### [facility] [address] [address] [address] Ramses Dumas Creatinine [Mass/Vol] 0.77 mg/dL Normal 0.55-1.02 [facility] Comment on above: Performed By: #### C MP #### [facility] [address] [address] [address] Ramses Dumas EGFR-AF CZECH >60 Normal >=60 [facility] Comment on above: Performed By: #### C MP #### [facility] [address] [address] [address] Ramses Dumas EGFR-NON AF CZECH >60 Normal >=60 [facility] Comment on above: Performed By: #### C MP #### [facility] [address] [address] [address] Ramses Dumas Glucose [Mass/Vol] 124 mg/dL Critically high 74-106 [facility] Comment on above: Performed By: #### C MP #### [facility] [address] [address] [address] Ramses Dumas Potassium [Moles/Vol] 3.6 mmol/L Normal 3.5-5.1 [facility] Comment on above: Performed By: #### C MP #### [facility] [address] [address] [address] Ramses Dumas Sodium [Moles/Vol] 137 mmol/L Normal 136-145 [facility] Comment on above: Performed By: #### C MP #### [facility] [address] [address] [address] Ramses Dumas Urea nitrogen [Mass/Vol] 12.0 mg/dL Normal 7.0-18.0 [facility] Comment on above: Performed By: #### C MP #### [facility] [address] [address] [address] Ramses Dumas Urea nitrogen/Creatinine [Mass ratio] 15.6 mg/mg Normal [facility] Comment on above: Performed By: #### C MP #### [facility] [address] [place] [address] Dr. Ramses Dumas URINE MICROSCOPIC ONLYon AMORPHOUS CRYSTALS RARE Normal [facility] Comment on above: Performed By: #### B LDCX2 #### [facility] [address] [place] [address] Dr. Ramses Dumas BACTERIA TRACE Abnormal NONE SEEN [facility] Comment on above: Performed By: #### B LDCX2 #### [facility] [address] [place] [address] Dr. Ramses Dumas Bacteria identified Cx Nom (U) INDICATED Normal [facility] Comment on above: Performed By: #### B LDCX2 #### [facility] [address] [place] [address] Dr. Ramses Dumas CA OX CRYSTALS RARE Normal [facility] Comment on above: Performed By: #### B LDCX2 #### [facility] [address] [place] [address] Dr. Ramses Dumas CAST NONE SEEN Normal NONE SEEN [facility] Comment on above: Performed By: #### B LDCX2 #### [facility] [address] [place] [address] Dr. Ramses Dumas Crystals LM Nom (Urine sed) SEEN Abnormal NONE SEEN [facility] Comment on above: Performed By: #### B LDCX2 #### [facility] [address] [place] [address] Dr. Ramses Dumas Epithelial cells LM Ql (Urine sed) FEW Abnormal NONE SEEN /RARE [facility] Comment on above: Performed By: #### B LDCX2 #### [facility] [address] [place] [address] Dr. Ramses Dumas MUCOUS TRACE Abnormal NONE SEEN [facility] Comment on above: Performed By: #### B LDCX2 #### [facility] [address] [place] [address] Dr. Ramses Dumas RBC 50-75 Abnormal 0-2 [facility] Comment on above: Performed By: #### B LDCX2 #### [facility] [address] [place] [address] Dr. Ramses Dumas WBC 20-50 Abnormal NONE SEEN [facility] Comment on above: Performed By: #### B LDCX2 #### [facility] [address] [address] [address] Ramses Dumas YEAST PRESENT Abnormal NONE SEEN [facility] Comment on above: Performed By: #### B LDCX2 #### [facility] [address] [address] [address] Ramses Dumas US KIDNEYSon 09-05-2022 US [...] GLEN GRAFF Date: 2022-09-05 11:00 Normal [facility] [address] ABD/PELVIS WO CONon 08-29 CT [...] ERICKA IGLESIAS Date: 2022-08-29 01:10 Normal [facility] CULTURE URINEon 08-29-2022 CULTURE URINE Culture Observations : LIGHT GROWTH OF MIXED GENITAL DAIANA. NO POTENTIAL PATHOGENS SEEN. Normal [facility] Comment on above: Performed By: #### U RCX #### [facility] [address] [place] [address] Dr. Ramses Dumas CBC AUTO DIFFon 08-28-2022 BASO # 0.1 103/ul Normal 0.0-0.1 [facility] Comment on above: Performed By: #### U RCX #### [facility] [address] [place] [address] Dr. Ramses Dumas Basophils/100 WBC (Bld) 0.5 % Normal 0.2-2.0 [facility] Comment on above: Performed By: #### U RCX #### [facility] [address] [place] [address] Dr. Ramses Dumas EO # 0.3 103/ul Normal 0.0-0.7 [facility] Comment on above: Performed By: #### U RCX #### [facility] [address] [place] [address] Dr. Ramses Dumas Eosinophils/100 WBC (Bld) 2.3 % Normal 0.9-7.0 [facility] Comment on above: Performed By: #### U RCX #### [facility] [address] [address] [address] Ramses Dumas Erythrocyte distribution width (RBC) [Ratio] 13.7 % Normal 11.0-15.0 [facility] Comment on above: Performed By: #### U RCX #### [facility] [address] [place] [address] Dr. Ramses Dumas Hematocrit (Bld) [Volume fraction] 36.7 % Normal 36.0-48.0 [facility] Comment on above: Performed By: #### U RCX #### [facility] [address] [place] [address] Dr. Ramses Dumas Hemoglobin (Bld) [Mass/Vol] 12.3 g/dL Normal 12.0-16.0 [facility] Comment on above: Performed By: #### U RCX #### [facility] [address] [place] [address] Dr. Ramses Dumas IG # 0.16 10e3/ul Critically high 0.00-0.03 [facility] Comment on above: Performed By: #### U RCX #### [facility] [address] [place] [address] Dr. Ramses Dumas IG % 1.1 % Critically high 0.0-0.5 [facility] Comment on above: Performed By: #### U RCX #### [facility] [address] [place] [address] Dr. Ramses Dumas LYMPH # 4.6 103/ul Critically high 1.2-3.8 [facility] Comment on above: Performed By: #### U RCX #### [facility] [address] [place] [address] Dr. Ramses Dumsa Lymphocytes/100 WBC (Bld) 31.8 % Normal 20.5-60.0 [facility] Comment on above: Performed By: #### U RCX #### [facility] [address] [place] [address] Dr. Ramses Dumas MANUAL DIFF REQ NO Normal [facility] Comment on above: Performed By: #### U RCX #### [facility] [address] [address] [address] Ramses Dumas MCH (RBC) [Entitic mass] 26.9 pg Normal 26.7-34.0 [facility] Comment on above: Performed By: #### U RCX #### [facility] [address] [place] [address] Dr. Ramses Dumas MCHC (RBC) [Mass/Vol] 33.5 g/dL Normal 29.9-35.2 [facility] Comment on above: Performed By: #### U RCX #### [facility] [address] [place] [address] Dr. Ramses Dumas MCV (RBC) [Entitic vol] 80.3 fL Critically low 81.0-99.0 [facility] Comment on above: Performed By: #### U RCX #### [facility] [address] [place] [address] Dr. Ramses Dumas MONO # 1.0 103/ul Critically high 0.3-0.8 [facility] Comment on above: Performed By: #### U RCX #### [facility] [address] [place] [address] Dr. Ramses Dumas Monocytes/100 WBC (Bld) 7.0 % Normal 1.7-12.0 [facility] Comment on above: Performed By: #### U RCX #### [facility] [address] [place] [address] Dr. Ramses Dumas NEUT # 8.2 103/ul Critically high 1.4-6.5 [facility] Comment on above: Performed By: #### U RCX #### [facility] [address] [place] [address] Dr. Ramses Dumas Neutrophils/100 WBC (Bld) 57.3 % Normal 43.0-75.0 [facility] Comment on above: Performed By: #### U RCX #### [facility] [address] [place] [address] Dr. Ramses Dumas Platelet mean volume (Bld) [Entitic vol] 8.6 fL Critically low 9.5-13.5 [facility] Comment on above: Performed By: #### U RCX #### [facility] [address] [place] [address] Dr. Ramses Dumas PLT 395 103/ul Normal 150-450 [facility] Comment on above: Performed By: #### U RCX #### [facility] [address] [place] [address] Dr. Ramses Dumas RBC 4.57 106/ul Normal 4.20-5.40 [facility] Comment on above: Performed By: #### U RCX #### [facility] [address] [place] [address] Dr. Ramses Dumas WBC 14.3 103/ul Critically high 4.0-11.0 [facility] Comment on above: Performed By: #### U RCX #### [facility] [address] [place] [address] Dr. Ramses Dumas ER URINE PROFILEon 2 Bilirubin Ql (U) Negative Normal NEGATIVE [facility] Comment on above: Performed By: #### U KJ 24 #### [facility] [address] [place] [address] Dr. Ramses Dumas Clarity (U) CLEAR Normal CLEAR [facility] Comment on above: Performed By: #### U KJ 24 #### [facility] [address] [place] [address] Dr. Ramses Dumas Color (U) LT. YELLOW Normal YELLOW [facility] Comment on above: Performed By: #### U KJ 24 #### [facility] [address] [place] [address] Dr. Ramses DELEON A micrscopic examination will be performed if indicated. Normal [facility] Comment on above: Performed By: #### U KJ 24 #### [facility] [address] [place] [address] Dr. Ramses Dumas Glucose Ql (U) Negative Normal NEGATIVE [facility] Comment on above: Performed By: #### U KJ 24 #### [facility] [address] [place] [address] Dr. Ramses Dumas Hemoglobin Ql (U) LARGE Abnormal NEGATIVE [facility] Comment on above: Performed By: #### U KJ 24 #### [facility] [address] [place] [address] Dr. Ramses Dumas Ketones Ql (U) Negative Normal NEGATIVE [facility] Comment on above: Performed By: #### U KJ 24 #### [facility] [address] [place] [address] Dr. Ramses Dumas LEUKOCYTES MODERATE Abnormal NEGATIVE [facility] Comment on above: Performed By: #### U KJ 24 #### [facility] [address] [place] [address] Dr. Ramses Dumas Nitrite Ql (U) Negative Normal NEGATIVE [facility] Comment on above: Performed By: #### U KJ 24 #### [facility] [address] [place] [address] Dr. Ramses Dumas pH (U) 6.5 [pH] Normal 5-9 [facility] Comment on above: Performed By: #### U KJ 24 #### [facility] [address] [place] [address] Dr. Ramses Dumas Protein (U) [Mass/Vol] 100 mg/dL Abnormal NEGAT CHRIS/ TRACE [facility] Comment on above: Performed By: #### U KJ 24 #### [facility] [address] [place] [address] Dr. Ramses Dumas SPEC GRAVITY 1.020 Normal 1.005-<=1.02 5 [facility] Comment on above: Performed By: #### U KJ 24 #### [facility] [address] [place] [address] Dr. Ramses Dumas UR MICRO IND INDICATED Normal [facility] Comment on above: Performed By: #### U KJ 24 #### [facility] [address] [place] [address] Dr. Ramses Dumas Urobilinogen Qn (U) 0.2 {Lucero'U}/dL Normal 0.2 - 1. 0 [facility] Comment on above: Performed By: #### U KJ 24 #### [facility] [address] [place] [address] Dr. Ramses Dumas PROF 14(COMP METB)on 022 Albumin [Mass/Vol] 3.3 g/dL Critically low 3.4-5.0 [facility] Comment on above: Performed By: #### C MP #### [facility] [address] [place] [address] Dr. Ramses Dumas Albumin/Globulin [Mass ratio] 0.8 {ratio} Normal [facility] Comment on above: Performed By: #### C MP #### [facility] [address] [place] [address] Dr. Ramses Dumas ALP [Catalytic activity/Vol] 108 U/L Normal 46-116 [facility] Comment on above: Performed By: #### C MP #### [facility] [address] [place] [address] Dr. Ramses Dumas ALT [Catalytic activity/Vol] 103 U/L Critically high 14-59 [facility] Comment on above: Performed By: #### C MP #### [facility] [address] [place] [address] Dr. Ramses Dumas Anion gap [Moles/Vol] 6.6 mmol/L Normal [facility] Comment on above: Performed By: #### C MP #### [facility] [address] [place] [address] Dr. Ramses Dumas AST [Catalytic activity/Vol] 21 U/L Normal 15-37 [facility] Comment on above: Performed By: #### C MP #### [facility] [address] [place] [address] Dr. Ramses Dumas Bilirubin [Mass/Vol] 0.2 mg/dL Normal 0.2-1.0 [facility] Comment on above: Performed By: #### C MP #### [facility] [address] [place] [address] Dr. Ramses Dumas Calcium [Mass/Vol] 9.2 mg/dL Normal 8.5-10.1 [facility] Comment on above: Performed By: #### C MP #### [facility] [address] [place] [address] Dr. Ramses Dumas Chloride [Moles/Vol] 102 mmol/L Normal 98-107 [facility] Comment on above: Performed By: #### C MP #### [facility] [address] [address] [address] Ramses Dumas CO2 [Moles/Vol] 28.8 mmol/L Normal 21.0-32.0 [facility] Comment on above: Performed By: #### C MP #### [facility] [address] [address] [address] Ramses Dumas Creatinine [Mass/Vol] 0.92 mg/dL Normal 0.55-1.02 [facility] Comment on above: Performed By: #### C MP #### [facility] [address] [address] [address] Ramses Dumas EGFR-AF CZECH >60 Normal >=60 [facility] Comment on above: Performed By: #### C MP #### [facility] [address] [address] [address] Ramses Dumas EGFR-NON AF CZECH >60 Normal >=60 [facility] Comment on above: Performed By: #### C MP #### [facility] [address] [address] [address] Ramses Dumas Globulin (S) [Mass/Vol] 4.1 g/dL Normal [facility] Comment on above: Performed By: #### C MP #### [facility] [address] [address] [address] Ramses Dumas Glucose [Mass/Vol] 114 mg/dL Critically high 74-106 [facility] Comment on above: Performed By: #### C MP #### [facility] [address] [address] [address] Ramses Dumas Potassium [Moles/Vol] 3.4 mmol/L Critically low 3.5-5.1 [facility] Comment on above: Performed By: #### C MP #### [facility] [address] [address] [address] Ramses Dumas Protein [Mass/Vol] 7.4 g/dL Normal 6.4-8.2 [facility] Comment on above: Performed By: #### C MP #### [facility] [address] [place] [address] Dr. Ramses Dumas Sodium [Moles/Vol] 134 mmol/L Critically low 136-145 [facility] Comment on above: Performed By: #### C MP #### [facility] [address] [place] [address] Dr. Ramses Dumas Urea nitrogen [Mass/Vol] 11.0 mg/dL Normal 7.0-18.0 [facility] Comment on above: Performed By: #### C MP #### [facility] [address] [place] [address] Dr. Ramses Dumas Urea nitrogen/Creatinine [Mass ratio] 12.0 mg/mg Normal [facility] Comment on above: Performed By: #### C MP #### [facility] [address] [place] [address] Dr. Ramses Dumas URINE MICROSCOPIC ONLYon BACTERIA MODERATE Abnormal NONE SEEN [facility] Comment on above: Performed By: #### U KJ 24 #### [facility] [address] [place] [address] Dr. Ramses Dumas Bacteria identified Cx Nom (U) INDICATED Normal [facility] Comment on above: Performed By: #### U KJ 24 #### [facility] [address] [place] [address] Dr. Ramses Dumas CAST NONE SEEN Normal NONE SEEN [facility] Comment on above: Performed By: #### U KJ 24 #### [facility] [address] [place] [address] Dr. Ramses Dumas Crystals LM Nom (Urine sed) NONE SEEN Normal NONE SEEN [facility] Comment on above: Performed By: #### U KJ 24 #### [facility] [address] [place] [address] Dr. Ramses Dumas Epithelial cells LM Ql (Urine sed) RARE Normal NONE SEEN /RARE [facility] Comment on above: Performed By: #### U KJ 24 #### [facility] [address] [place] [address] Dr. Ramses Dumas MUCOUS NONE SEEN Normal NONE SEEN [facility] Comment on above: Performed By: #### U KJ 24 #### [facility] [address] [address] [address] Ramses Dumas RBC 20-50 Abnormal 0-2 [facility] Comment on above: Performed By: #### U KJ 24 #### [facility] [id number] Ramses Dumas WBC 5-10 Abnormal NONE SEEN [facility] Comment on above: Performed By: #### U KJ 24 #### [facility] [address] [address] [address] Ramses Dumas CULTURE BLOODon 08-25-2022 Microscopic [...] S F Tetracycline >=16 R F Normal [facility] Comment on above: Performed By: #### B LDCX2 #### [facility] [address] [place] [address] Dr. Ramses Dumas Microscopic examination of blood, [...] F Tetracycline >=16 R F Normal [facility] Comment on above: Performed By: #### C BC #### [facility] [address] [place] [address] Dr. Ramses Dumas CBC AUTO DIFFon 08-24-2022 BASO # 0.0 103/ul Normal 0.0-0.1 [facility] Comment on above: Performed By: #### C BC #### [facility] [address] [place] [address] Dr. Ramses Dumas Basophils/100 WBC (Bld) 0.1 % Critically low 0.2-2.0 [facility] Comment on above: Performed By: #### C BC #### [facility] [address] [place] [address] Dr. Ramses Dumas EO # 0.0 103/ul Normal 0.0-0.7 [facility] Comment on above: Performed By: #### C BC #### [facility] [address] [place] [address] Dr. Ramses Dumas Eosinophils/100 WBC (Bld) 0.0 % Critically low 0.9-7.0 [facility] Comment on above: Performed By: #### C BC #### [facility] [address] [place] [address] Dr. Ramses Dumas Erythrocyte distribution width (RBC) [Ratio] 13.5 % Normal 11.0-15.0 [facility] Comment on above: Performed By: #### C BC #### [facility] [address] [place] [address] Dr. Ramses Dumas Hematocrit (Bld) [Volume fraction] 33.0 % Critically low 36.0-48.0 [facility] Comment on above: Performed By: #### C BC #### [facility] [address] [place] [address] Dr. Ramses Dumas Hemoglobin (Bld) [Mass/Vol] 10.7 g/dL Critically low 12.0-16.0 [facility] Comment on above: Performed By: #### C BC #### [facility] [address] [place] [address] Dr. Ramses Dumas IG # 0.04 10e3/ul Critically high 0.00-0.03 [facility] Comment on above: Performed By: #### C BC #### [facility] [address] [place] [address] Dr. Ramses Dumas IG % 0.4 % Normal 0.0-0.5 [facility] Comment on above: Performed By: #### C BC #### [facility] [address] [place] [address] Dr. Ramses Dumas LYMPH # 0.8 103/ul Critically low 1.2-3.8 [facility] Comment on above: Performed By: #### C BC #### [facility] [address] [place] [address] Dr. Ramses Dumas Lymphocytes/100 WBC (Bld) 7.9 % Critically low 20.5-60.0 [facility] Comment on above: Performed By: #### C BC #### [facility] [address] [place] [address] Dr. Ramses Dumas MANUAL DIFF REQ NO Normal [facility] Comment on above: Performed By: #### C BC #### [facility] [address] [place] [address] Dr. Ramses Dumas MCH (RBC) [Entitic mass] 26.5 pg Critically low 26.7-34.0 [facility] Comment on above: Performed By: #### C BC #### [facility] [address] [place] [address] Dr. Ramses Dumas MCHC (RBC) [Mass/Vol] 32.4 g/dL Normal 29.9-35.2 [facility] Comment on above: Performed By: #### C BC #### [facility] [address] [place] [address] Dr. Ramses Dumas MCV (RBC) [Entitic vol] 81.7 fL Normal 81.0-99.0 [facility] Comment on above: Performed By: #### C BC #### [facility] [address] [place] [address] Dr. Ramses Dumas MONO # 0.6 103/ul Normal 0.3-0.8 [facility] Comment on above: Performed By: #### C BC #### [facility] [address] [place] [address] Dr. Ramses Dumas Monocytes/100 WBC (Bld) 6.3 % Normal 1.7-12.0 [facility] Comment on above: Performed By: #### C BC #### [facility] [address] [place] [address] Dr. Ramses Dumas NEUT # 8.6 103/ul Critically high 1.4-6.5 [facility] Comment on above: Performed By: #### C BC #### [facility] [address] [place] [address] Dr. Ramses Dumas Neutrophils/100 WBC (Bld) 85.3 % Critically high 43.0-75.0 [facility] Comment on above: Performed By: #### C BC #### [facility] [address] [place] [address] Dr. Ramses Dumas Platelet mean volume (Bld) [Entitic vol] 9.1 fL Critically low 9.5-13.5 [facility] Comment on above: Performed By: #### C BC #### [facility] [address] [place] [address] Dr. Ramses Dumas PLT 248 103/ul Normal 150-450 [facility] Comment on above: Performed By: #### C BC #### [facility] [address] [place] [address] Dr. Ramses Dumas RBC 4.04 106/ul Critically low 4.20-5.40 [facility] Comment on above: Performed By: #### C BC #### [facility] [address] [place] [address] Dr. Ramses Dumas WBC 10.1 103/ul Normal 4.0-11.0 [facility] Comment on above: Performed By: #### C BC #### [facility] [address] [place] [address] Dr. Ramses Dumas CULTURE URINEon 08-24-2022 CULTURE [...] S F Tetracycline >=16 R F Normal [facility] Comment on above: Performed By: #### U RCX #### [facility] [address] [place] [address] Dr. Ramses Dumas PROF 14(COMP METB)on 022 Albumin [Mass/Vol] 2.4 g/dL Critically low 3.4-5.0 [facility] Comment on above: Performed By: #### C VDTBH #### [facility] [address] [place] [address] Dr. Ramses Dumas Albumin/Globulin [Mass ratio] 0.7 {ratio} Normal [facility] Comment on above: Performed By: #### C VDTBH #### [facility] [address] [place] [address] Dr. Ramses Dumas ALP [Catalytic activity/Vol] 95 U/L Normal 46-116 [facility] Comment on above: Performed By: #### C VDTBH #### [facility] [address] [place] [address] Dr. Ramses Dumas ALT [Catalytic activity/Vol] 327 U/L Critically high 14-59 [facility] Comment on above: Performed By: #### C VDTBH #### [facility] [address] [place] [address] Dr. Ramses Dumas Anion gap [Moles/Vol] 8.7 mmol/L Normal [facility] Comment on above: Performed By: #### C VDTBH #### [facility] [address] [place] [address] Dr. Ramses Dumas AST [Catalytic activity/Vol] 165 U/L Critically high 15-37 [facility] Comment on above: Performed By: #### C VDTBH #### [facility] [address] [place] [address] Dr. Ramses Dumas Bilirubin [Mass/Vol] 0.4 mg/dL Normal 0.2-1.0 [facility] Comment on above: Performed By: #### C VDTBH #### [facility] [address] [place] [address] Dr. Ramses Dumas Calcium [Mass/Vol] 8.0 mg/dL Critically low 8.5-10.1 [facility] Comment on above: Performed By: #### C VDTBH #### [facility] [address] [place] [address] Dr. Ramses Dumas Chloride [Moles/Vol] 108 mmol/L Critically high 98-107 [facility] Comment on above: Performed By: #### C VDTBH #### [facility] [address] [place] [address] Dr. Ramses Dumas CO2 [Moles/Vol] 25.3 mmol/L Normal 21.0-32.0 [facility] Comment on above: Performed By: #### C VDTBH #### [facility] [address] [place] [address] Dr. Ramses Dumas Creatinine [Mass/Vol] 0.70 mg/dL Normal 0.55-1.02 [facility] Comment on above: Performed By: #### C VDTBH #### [facility] [address] [place] [address] Dr. Ramses Dumas EGFR-AF CZECH >60 Normal >=60 [facility] Comment on above: Performed By: #### C VDTBH #### [facility] [address] [place] [address] Dr. Ramses Dumas EGFR-NON AF CZECH >60 Normal >=60 [facility] Comment on above: Performed By: #### C VDTBH #### [facility] [address] [place] [address] Dr. Ramses Dumas Globulin (S) [Mass/Vol] 3.6 g/dL Normal [facility] Comment on above: Performed By: #### C VDTBH #### [facility] [address] [address] [address] Ramses Dumas Glucose [Mass/Vol] 160 mg/dL Critically high 74-106 [facility] Comment on above: Performed By: #### C VDTBH #### [facility] [address] [place] [address] Dr. Ramses Dumas Potassium [Moles/Vol] 4.0 mmol/L Normal 3.5-5.1 [facility] Comment on above: Performed By: #### C VDTBH #### [facility] [address] [place] [address] Dr. Ramses Dumas Protein [Mass/Vol] 6.0 g/dL Critically low 6.4-8.2 [facility] Comment on above: Performed By: #### C VDTBH #### [facility] [address] [place] [address] Dr. Ramses Dumas Sodium [Moles/Vol] 138 mmol/L Normal 136-145 [facility] Comment on above: Performed By: #### C VDTBH #### [facility] [address] [place] [address] Dr. Ramses Dumas Urea nitrogen [Mass/Vol] 6.0 mg/dL Critically low 7.0-18.0 [facility] Comment on above: Performed By: #### C VDTBH #### [facility] [address] [place] [address] Dr. Ramses Dumas Urea nitrogen/Creatinine [Mass ratio] 8.6 mg/mg Normal [facility] Comment on above: Performed By: #### C VDTBH #### [facility] [address] [place] [address] Dr. Ramses Dumas CBC AUTO DIFFon 08-23-2022 BASO # 0.0 103/ul Normal 0.0-0.1 [facility] Comment on above: Performed By: #### U RCX #### [facility] [address] [place] [address] Dr. Ramses Dumas Basophils/100 WBC (Bld) 0.2 % Normal 0.2-2.0 [facility] Comment on above: Performed By: #### U RCX #### [facility] [address] [place] [address] Dr. Ramses Dumas EO # 0.0 103/ul Normal 0.0-0.7 [facility] Comment on above: Performed By: #### U RCX #### [facility] [address] [place] [address] Dr. Ramses Dumas Eosinophils/100 WBC (Bld) 0.1 % Critically low 0.9-7.0 [facility] Comment on above: Performed By: #### U RCX #### [facility] [address] [place] [address] Dr. Ramses Dumas Erythrocyte distribution width (RBC) [Ratio] 13.4 % Normal 11.0-15.0 [facility] Comment on above: Performed By: #### U RCX #### [facility] [address] [place] [address] Dr. Ramses Dumas Hematocrit (Bld) [Volume fraction] 34.1 % Critically low 36.0-48.0 [facility] Comment on above: Performed By: #### U RCX #### [facility] [address] [place] [address] Dr. Ramses Dumas Hemoglobin (Bld) [Mass/Vol] 10.9 g/dL Critically low 12.0-16.0 [facility] Comment on above: Performed By: #### U RCX #### [facility] [address] [place] [address] Dr. Ramses Dumas IG # 0.02 10e3/ul Normal 0.00-0.03 [facility] Comment on above: Performed By: #### U RCX #### [facility] [address] [place] [address] Dr. Ramses Dumas IG % 0.2 % Normal 0.0-0.5 [facility] Comment on above: Performed By: #### U RCX #### [facility] [address] [place] [address] Dr. Ramses Dumas LYMPH # 0.7 103/ul Critically low 1.2-3.8 [facility] Comment on above: Performed By: #### U RCX #### [facility] [address] [place] [address] Dr. Ramses Dumas Lymphocytes/100 WBC (Bld) 6.9 % Critically low 20.5-60.0 [facility] Comment on above: Performed By: #### U RCX #### [facility] [address] [place] [address] Dr. Ramses Dumas MANUAL DIFF REQ NO Normal [facility] Comment on above: Performed By: #### U RCX #### [facility] [address] [place] [address] Dr. Ramses Dumas MCH (RBC) [Entitic mass] 26.1 pg Critically low 26.7-34.0 [facility] Comment on above: Performed By: #### U RCX #### [facility] [address] [place] [address] Dr. Ramses Dumas MCHC (RBC) [Mass/Vol] 32.0 g/dL Normal 29.9-35.2 [facility] Comment on above: Performed By: #### U RCX #### [facility] [address] [place] [address] Dr. Ramses Dumas MCV (RBC) [Entitic vol] 81.8 fL Normal 81.0-99.0 [facility] Comment on above: Performed By: #### U RCX #### [facility] [address] [place] [address] Dr. Ramses Dumas MONO # 0.6 103/ul Normal 0.3-0.8 [facility] Comment on above: Performed By: #### U RCX #### [facility] [address] [place] [address] Dr. Ramses Dumas Monocytes/100 WBC (Bld) 5.9 % Normal 1.7-12.0 [facility] Comment on above: Performed By: #### U RCX #### [facility] [address] [place] [address] Dr. Ramses Dumas NEUT # 8.2 103/ul Critically high 1.4-6.5 [facility] Comment on above: Performed By: #### U RCX #### [facility] [address] [place] [address] Dr. Ramses Dumas Neutrophils/100 WBC (Bld) 86.7 % Critically high 43.0-75.0 [facility] Comment on above: Performed By: #### U RCX #### [facility] [address] [place] [address] Dr. Ramses Dumas Platelet mean volume (Bld) [Entitic vol] 9.4 fL Critically low 9.5-13.5 [facility] Comment on above: Performed By: #### U RCX #### [facility] [address] [place] [address] Dr. Ramses Dumas PLT 235 103/ul Normal 150-450 [facility] Comment on above: Performed By: #### U RCX #### [facility] [address] [place] [address] Dr. Ramses Dumas RBC 4.17 106/ul Critically low 4.20-5.40 [facility] Comment on above: Performed By: #### U RCX #### [facility] [address] [place] [address] Dr. Ramses Dumas WBC 9.5 103/ul Normal 4.0-11.0 [facility] Comment on above: Performed By: #### U RCX #### [facility] [address] [place] [address] Dr. Ramses Dumas PROF 14(COMP METB)on 022 Albumin [Mass/Vol] 2.6 g/dL Critically low 3.4-5.0 [facility] Comment on above: Performed By: #### U KJ 24 #### [facility] [address] [place] [address] Dr. Ramses Dumas Albumin/Globulin [Mass ratio] 0.8 {ratio} Normal [facility] Comment on above: Performed By: #### U KJ 24 #### [facility] [address] [address] [address] Ramses Dumas ALP [Catalytic activity/Vol] 82 U/L Normal 46-116 [facility] Comment on above: Performed By: #### U KJ 24 #### [facility] [address] [address] [address] Ramses Dumas ALT [Catalytic activity/Vol] 257 U/L Critically high 14-59 [facility] Comment on above: Performed By: #### U KJ 24 #### [facility] [address] [address] [address] Ramses Dumas Anion gap [Moles/Vol] 10.3 mmol/L Normal [facility] Comment on above: Performed By: #### U KJ 24 #### [facility] [address] [place] [address] Dr. Ramses Dumas AST [Catalytic activity/Vol] 196 U/L Critically high 15-37 [facility] Comment on above: Performed By: #### U KJ 24 #### [facility] [address] [place] [address] Dr. Ramses Dumas Bilirubin [Mass/Vol] 0.5 mg/dL Normal 0.2-1.0 [facility] Comment on above: Performed By: #### U KJ 24 #### [facility] [address] [place] [address] Dr. Ramses Dumas Calcium [Mass/Vol] 7.8 mg/dL Critically low 8.5-10.1 [facility] Comment on above: Performed By: #### U KJ 24 #### [facility] [address] [place] [address] Dr. Ramses Dumas Chloride [Moles/Vol] 104 mmol/L Normal 98-107 [facility] Comment on above: Performed By: #### U KJ 24 #### [facility] [address] [address] [address] Ramses Dumas CO2 [Moles/Vol] 24.4 mmol/L Normal 21.0-32.0 [facility] Comment on above: Performed By: #### U KJ 24 #### [facility] [address] [place] [address] Dr. Ramses Dumas Creatinine [Mass/Vol] 1.09 mg/dL Critically high 0.55-1.02 [facility] Comment on above: Performed By: #### U KJ 24 #### [facility] [address] [address] [address] Ramses Dumas EGFR-AF CZECH >60 Normal >=60 [facility] Comment on above: Performed By: #### U KJ 24 #### [facility] [address] [address] [address] Ramses Dumas EGFR-NON AF CZECH 59 mL/min/1.73m2 Critically low >=60 [facility] Comment on above: Performed By: #### U KJ 24 #### [facility] [address] [place] [address] Dr. Ramses Dumas Globulin (S) [Mass/Vol] 3.3 g/dL Normal [facility] Comment on above: Performed By: #### U KJ 24 #### [facility] [address] [place] [address] Dr. Ramses Dumas Glucose [Mass/Vol] 143 mg/dL Critically high 74-106 [facility] Comment on above: Performed By: #### U KJ 24 #### [facility] [address] [place] [address] Dr. Ramses Dumas Potassium [Moles/Vol] 3.7 mmol/L Normal 3.5-5.1 [facility] Comment on above: Performed By: #### U KJ 24 #### [facility] [address] [place] [address] Dr. Ramses Dumas Protein [Mass/Vol] 5.9 g/dL Critically low 6.4-8.2 [facility] Comment on above: Performed By: #### U KJ 24 #### [facility] [address] [place] [address] Dr. Ramses Dumas Sodium [Moles/Vol] 135 mmol/L Critically low 136-145 [facility] Comment on above: Performed By: #### U KJ 24 #### [facility] [address] [place] [address] Dr. Ramses Dumas Urea nitrogen [Mass/Vol] 10.0 mg/dL Normal 7.0-18.0 [facility] Comment on above: Performed By: #### U KJ 24 #### [facility] [address] [place] [address] Dr. Ramses Dumas Urea nitrogen/Creatinine [Mass ratio] 9.2 mg/mg Normal [facility] Comment on above: Performed By: #### U KJ 24 #### [facility] [address] [place] [address] Dr. Ramses Dumas BLOOD CULTURE ID PANELon A. baumannii Not detected Normal NOT DETECTED [facility] Comment on above: Performed By: #### C VDTBH #### [facility] [address] [place] [address] Dr. Ramses Dumas Bacteriodes fragilis Not detected Normal NOT DETECTED [facility] Comment on above: Performed By: #### C VDTBH #### [facility] [address] [place] [address] Dr. Ramses BAKER CONTROLS PASSED Normal [facility] Comment on above: Performed By: #### C VDTBH #### [facility] [address] [place] [address] Dr. Ramses SHEPPARDDBTHD BLOOD CULTURE BOTTLE INFORMATION Normal [facility] Comment on above: Performed By: #### C VDTBH #### [facility] [address] [place] [address] Dr. Ramses Dumas BCIDHD1 ANTIMICROBIAL RESISTANCE GENES Normal [facility] Comment on above: Performed By: #### C VDTBH #### [facility] [address] [place] [address] Dr. Ramses Dumas BCIDHD2 SEE BELOW [facility] Comment on above: Result Comment: Note : Antimicrobial resitance can occur via multiple mechanisms. A Not Detected result for the [employer] antomicrobial resistance gene assays does not indicate antimicrobial susceptibility. Subculturing is required for species identification and susceptibility testing of isolates. Performed By: #### C VDTBH #### [facility] [address] [place] [address] Dr. Yilan Dumas BCIDHD3 Positive Normal [facility] Comment on above: Performed By: #### C VDTBH #### [facility] [address] [address] [address] Ramses Dumas BCIDHD4 Negative Normal [facility] Comment on above: Performed By: #### C VDTBH #### [facility] [address] [address] [address] Ramses Dumas BCIDHD5 YEAST Normal [facility] Comment on above: Performed By: #### C VDTBH #### [facility] [address] [address] [address] Ramses Dumas Bottle Set: Set 1 Normal [facility] Comment on above: Performed By: #### C VDTBH #### [facility] [address] [place] [address] Dr. Ramses Dumas Bottle: Pediatric Normal [facility] Comment on above: Performed By: #### C VDTBH #### [facility] [address] [place] [address] Dr. Ramses Dumas C. neoformans/gattii Not detected Normal NOT DETECTED [facility] Comment on above: Performed By: #### C VDTBH #### [facility] [address] [place] [address] Dr. Ramses Dumas Kim albicans Not detected Normal NOT DETECTED [facility] Comment on above: Performed By: #### C VDTBH #### [facility] [address] [place] [address] Dr. Ramses Dumas Kim auris Not detected Normal NOT DETECTED [facility] Comment on above: Performed By: #### C VDTBH #### [facility] [address] [place] [address] Dr. Ramses Dumas Kim glabrata Not detected Normal NOT DETECTED [facility] Comment on above: Performed By: #### C VDTBH #### [facility] [address] [place] [address] Dr. Ramses Dumas Kim Krusei Not detected Normal NOT DETECTED [facility] Comment on above: Performed By: #### C VDTBH #### [facility] [address] [place] [address] Dr. Ramses Dumas Kim Parapsilosis Not detected Normal NOT DETECTED [facility] Comment on above: Performed By: #### C VDTBH #### [facility] [address] [place] [address] Dr. Ramses Dumas Kim Tropicalis Not detected Normal NOT DETECTED [facility] Comment on above: Performed By: #### C VDTBH #### [facility] [address] [place] [address] Dr. Ramses Dumas CTX-M Resistant Gene Not Applicable Normal NOT DETECTE D [facility] Comment on above: Performed By: #### C VDTBH #### [facility] [address] [place] [address] Dr. Ramses Dumas E. Cloacae complex Not detected Normal NOT DETECTED [facility] Comment on above: Performed By: #### C VDTBH #### [facility] [address] [place] [address] Dr. Ramses Dumas E. faecalis Not detected Normal NOT DETECTED [facility] Comment on above: Performed By: #### C VDTBH #### [facility] [address] [place] [address] Dr. Ramses Dumas E. faecium Not detected Normal NOT DETECTED [facility] Comment on above: Performed By: #### C VDTBH #### [facility] [address] [place] [address] Dr. Ramses Dumas Enterobacteriaceae Not detected Normal NOT DETECTED [facility] Comment on above: Performed By: #### C VDTBH #### [facility] [address] [place] [address] Dr. Ramses Dumas Escherichia coli Not detected Normal NOT DETECTED [facility] Comment on above: Performed By: #### C VDTBH #### [facility] [address] [place] [address] Dr. Ramses Dumas H. influenzae Not detected Normal NOT DETECTED [facility] Comment on above: Performed By: #### C VDTBH #### [facility] [address] [place] [address] Dr. Ramses Dumas IMP Resistant Gene Not Applicable Normal NOT DETECTED [facility] Comment on above: Performed By: #### C VDTBH #### [facility] [address] [place] [address] Dr. Ramses Dumas K. oxytoca Not detected Normal NOT DETECTED [facility] Comment on above: Performed By: #### C VDTBH #### [facility] [address] [place] [address] Dr. Ramses Dumas K. pneumoniae Not detected Normal NOT DETECTED [facility] Comment on above: Performed By: #### C VDTBH #### [facility] [address] [place] [address] Dr. Ramses Dumas Klebsiella aerogenes Not detected Normal NOT DETECTED [facility] Comment on above: Performed By: #### C VDTBH #### [facility] [address] [place] [address] Dr. Ramses Dumas KPC Resistant Gene Not detected Normal NOT DETECTED [facility] Comment on above: Performed By: #### C VDTBH #### [facility] [address] [place] [address] Dr. Ramses Dumas List. monocytogenes Not detected Normal NOT DETECTED [facility] Comment on above: Performed By: #### C VDTBH #### [facility] [address] [place] [address] Dr. Ramses Dumas Mcr-1 Resistant Gene Not Applicable Normal NOT DETECTE D [facility] Comment on above: Performed By: #### C VDTBH #### [facility] [address] [place] [address] Dr. Ramses Dumas mecA/C Not Applicable Normal NOT DETECTED [facility] Comment on above: Performed By: #### C VDTBH #### [facility] [address] [place] [address] Dr. Ramses Dumas mecA/C MREJ Not Applicable Normal NOT DETECTED [facility] Comment on above: Performed By: #### C VDTBH #### [facility] [address] [place] [address] Dr. Ramses Dumas N. meningitidis Not detected Normal NOT DETECTED [facility] Comment on above: Performed By: #### C VDTBH #### [facility] [address] [place] [address] Dr. Ramses Dumas NDM Resistant Gene Not Applicable Normal NOT DETECTED [facility] Comment on above: Performed By: #### C VDTBH #### [facility] [address] [place] [address] Dr. Ramses Dumas Oxa-48-like Not Applicable Normal NOT DETECTED [facility] Comment on above: Performed By: #### C VDTBH #### [facility] [address] [place] [address] Dr. Ramses Dumas Proteus Not detected Normal NOT DETECTED [facility] Comment on above: Performed By: #### C VDTBH #### [facility] [address] [place] [address] Dr. Ramses Dumas Pseud. aeruginosa Not detected Normal NOT DETECTED [facility] Comment on above: Performed By: #### C VDTBH #### [facility] [address] [place] [address] Dr. Ramses Dumas S. maltophilia Not detected Normal NOT DETECTED [facility] Comment on above: Performed By: #### C VDTBH #### [facility] [address] [place] [address] Dr. Ramses Dumas Salmonella Not detected Normal NOT DETECTED [facility] Comment on above: Performed By: #### C VDTBH #### [facility] [address] [place] [address] Dr. Ramses Dumas Seratia marcescens Not detected Normal NOT DETECTED [facility] Comment on above: Performed By: #### C VDTBH #### [facility] [address] [place] [address] Dr. Ramses Dumas Site: unknown/not given Normal [facility] Comment on above: Performed By: #### C VDTBH #### [facility] [address] [place] [address] Dr. Ramses Dumas Staph. aureus Not detected Normal NOT DETECTED [facility] Comment on above: Performed By: #### C VDTBH #### [facility] [address] [place] [address] Dr. Ramses Benito. epidermidis Not detected Normal NOT DETECTED [facility] Comment on above: Performed By: #### C VDTBH #### [facility] [address] [place] [address] Dr. Ramses Benito. lugdunensis Not detected Normal NOT DETECTED [facility] Comment on above: Performed By: #### C VDTBH #### [facility] [address] [place] [address] Dr. Ramses Dumas Staphylococcus Not detected Normal NOT DETECTED [facility] Comment on above: Performed By: #### C VDTBH #### [facility] [address] [place] [address] Dr. Ramses Dumas Strep. agalactiae Detected Critically abnormal NOT DETECTED [facility] Comment on above: Performed By: #### C VDTBH #### [facility] [address] [place] [address] Dr. Ramses Dumas Strep. pneumoniae Not detected Normal NOT DETECTED [facility] Comment on above: Performed By: #### C VDTBH #### [facility] [address] [place] [address] Dr. Ramses Dumas Strep. pyogenes Not detected Normal NOT DETECTED [facility] Comment on above: Performed By: #### C VDTBH #### [facility] [address] [place] [address] Dr. Ramses Dumas Streptococcus Detected Critically abnormal NOT DETECTED [facility] Comment on above: Performed By: #### C VDTBH #### [facility] [address] [place] [address] Dr. Ramses Dumas Efrain/B Resist. Gene Not detected Normal NOT DETECTED [facility] Comment on above: Performed By: #### C VDTBH #### [facility] [address] [place] [address] Dr. Ramses Dumas VIM Resistant Gene Not Applicable Normal NOT DETECTED [facility] Comment on above: Performed By: #### C VDTBH #### [facility] [address] [address] [address] Ramses Dumas CBC AUTO DIFFon 08-22-2022 BASO # 0.1 103/ul Normal 0.0-0.1 [facility] Comment on above: Performed By: #### U KJ 24 #### [facility] [address] [place] [address] Dr. Ramses Dumas Basophils/100 WBC (Bld) 0.7 % Normal 0.2-2.0 [facility] Comment on above: Performed By: #### U KJ 24 #### [facility] [address] [place] [address] Dr. Ramses Dumas EO # 0.1 103/ul Normal 0.0-0.7 [facility] Comment on above: Performed By: #### U KJ 24 #### [facility] [address] [place] [address] Dr. Ramses Dumas Eosinophils/100 WBC (Bld) 1.7 % Normal 0.9-7.0 [facility] Comment on above: Performed By: #### U KJ 24 #### [facility] [address] [place] [address] Dr. Ramses Dumas Erythrocyte distribution width (RBC) [Ratio] 13.2 % Normal 11.0-15.0 [facility] Comment on above: Performed By: #### U KJ 24 #### [facility] [address] [place] [address] Dr. Ramses Dumas Hematocrit (Bld) [Volume fraction] 39.8 % Normal 36.0-48.0 [facility] Comment on above: Performed By: #### U KJ 24 #### [facility] [address] [place] [address] Dr. Ramses Dumas Hemoglobin (Bld) [Mass/Vol] 12.9 g/dL Normal 12.0-16.0 [facility] Comment on above: Performed By: #### U KJ 24 #### [facility] [address] [place] [address] Dr. Ramses Dumas IG # 0.02 10e3/ul Normal 0.00-0.03 [facility] Comment on above: Performed By: #### U KJ 24 #### [facility] [address] [address] [address] Ramses Dumas IG % 0.2 % Normal 0.0-0.5 [facility] Comment on above: Performed By: #### U KJ 24 #### [facility] [address] [address] [address] Ramses Dumas LYMPH # 3.2 103/ul Normal 1.2-3.8 [facility] Comment on above: Performed By: #### U KJ 24 #### [facility] [address] [place] [address] Dr. Ramses Dumas Lymphocytes/100 WBC (Bld) 40.0 % Normal 20.5-60.0 [facility] Comment on above: Performed By: #### U KJ 24 #### [facility] [address] [place] [address] Dr. Ramses Dumas MANUAL DIFF REQ NO Normal [facility] Comment on above: Performed By: #### U KJ 24 #### [facility] [address] [place] [address] Dr. Ramses Dumas MCH (RBC) [Entitic mass] 26.6 pg Critically low 26.7-34.0 [facility] Comment on above: Performed By: #### U KJ 24 #### [facility] [address] [place] [address] Dr. Ramses Dumas MCHC (RBC) [Mass/Vol] 32.4 g/dL Normal 29.9-35.2 [facility] Comment on above: Performed By: #### U KJ 24 #### [facility] [address] [place] [address] Dr. Ramses Dumas MCV (RBC) [Entitic vol] 82.1 fL Normal 81.0-99.0 [facility] Comment on above: Performed By: #### U KJ 24 #### [facility] [address] [place] [address] Dr. Ramses Dumas MONO # 0.6 103/ul Normal 0.3-0.8 [facility] Comment on above: Performed By: #### U KJ 24 #### [facility] [address] [address] [address] Ramses Dumas Monocytes/100 WBC (Bld) 7.5 % Normal 1.7-12.0 [facility] Comment on above: Performed By: #### U KJ 24 #### [facility] [address] [address] [address] Ramses Dumas NEUT # 4.0 103/ul Normal 1.4-6.5 [facility] Comment on above: Performed By: #### U KJ 24 #### [facility] [address] [address] [address] Ramses Dumas Neutrophils/100 WBC (Bld) 49.9 % Normal 43.0-75.0 [facility] Comment on above: Performed By: #### U KJ 24 #### [facility] [address] [place] [address] Dr. Ramses Dumas Platelet mean volume (Bld) [Entitic vol] 9.3 fL Critically low 9.5-13.5 [facility] Comment on above: Performed By: #### U KJ 24 #### [facility] [address] [address] [address] Ramses Dumas PLT 354 103/ul Normal 150-450 [facility] Comment on above: Performed By: #### U KJ 24 #### [facility] [address] [place] [address] Dr. Ramses Dumas RBC 4.85 106/ul Normal 4.20-5.40 [facility] Comment on above: Performed By: #### U KJ 24 #### [facility] [address] [address] [address] Ramses Dumas WBC 8.1 103/ul Normal 4.0-11.0 [facility] Comment on above: Performed By: #### U KJ 24 #### [facility] [address] [place] [address] ABD/PELVIS WO CONon [...] KESHIA IRIZARRY Date: 2022-08-22 07:04 Normal [facility] Covid-19 PCR ([facility])on SARS-CoV-2 (COVID-19) RNA FRANCESCA+probe Ql (Unsp spec) Not detected Normal NOT DETECTED [facility] Comment on above: Result Comment: When [...] for this test is supported by the [place] of Health and Human Service's declaration that [...] used). Performed By: #### C MP #### [facility] [address] [place] [address] Dr. Ramses Dumas ER URINE PROFILEon 2 Bilirubin Ql (U) Negative Normal NEGATIVE [facility] Comment on above: Performed By: #### U RCX #### [facility] [address] [place] [address] Dr. Ramses Dumas Clarity (U) CLEAR Normal CLEAR [facility] Comment on above: Performed By: #### U RCX #### [facility] [address] [place] [address] Dr. Ramses Dumas Color (U) LT. YELLOW Normal YELLOW [facility] Comment on above: Performed By: #### U RCX #### [facility] [address] [place] [address] Dr. Ramses DELEON A micrscopic examination will be performed if indicated. Normal [facility] Comment on above: Performed By: #### U RCX #### [facility] [address] [place] [address] Dr. Ramses Dumas Glucose Ql (U) Negative Normal NEGATIVE [facility] Comment on above: Performed By: #### U RCX #### [facility] [address] [place] [address] Dr. Ramses Dumas Hemoglobin Ql (U) SMALL Abnormal NEGATIVE [facility] Comment on above: Performed By: #### U RCX #### [facility] [address] [place] [address] Dr. Ramses Dumas Ketones Ql (U) Negative Normal NEGATIVE [facility] Comment on above: Performed By: #### U RCX #### [facility] [address] [place] [address] Dr. Ramses Dumas LEUKOCYTES SMALL Abnormal NEGATIVE [facility] Comment on above: Performed By: #### U RCX #### [facility] [address] [place] [address] Dr. Ramses Dumas Nitrite Ql (U) Negative Normal NEGATIVE [facility] Comment on above: Performed By: #### U RCX #### [facility] [address] [address] [address] Ramses Dumas pH (U) 7.0 [pH] Normal 5-9 [facility] Comment on above: Performed By: #### U RCX #### [facility] [address] [address] [address] Ramses Dumas Protein (U) [Mass/Vol] 30 mg/dL Abnormal NEGAT CHRIS/ TRACE [facility] Comment on above: Performed By: #### U RCX #### [facility] [address] [address] [address] Ramses Dumas SPEC GRAVITY 1.020 Normal 1.005-<=1.02 5 [facility] Comment on above: Performed By: #### U RCX #### [facility] [address] [place] [address] Dr. Ramses Dumas UR MICRO IND INDICATED Normal [facility] Comment on above: Performed By: #### U RCX #### [facility] [address] [address] [address] Ramses Dumas Urobilinogen Qn (U) 0.2 {Lucero'U}/dL Normal 0.2 - 1. 0 [facility] Comment on above: Performed By: #### U RCX #### [facility] [address] [address] [address] Ramses Dumas LACTATE/LACTIC ACIDon 2021 Lactate [Moles/Vol] 2.3 mmol/L Critically high 0.4-1.9 [facility] Comment on above: Performed By: #### U RCX #### [facility] [address] [address] [address] Ramses Dumas URon 08-22-2022 , QUAL Negative Normal NEGATIVE [facility] Comment on above: Performed By: #### U RCX #### [facility] [address] [place] [address] Dr. Ramses Dumas PROF 14(COMP METB)on 022 Albumin [Mass/Vol] 3.5 g/dL Normal 3.4-5.0 [facility] Comment on above: Performed By: #### U RCX #### [facility] [address] [place] [address] Dr. Ramses Dumas Albumin/Globulin [Mass ratio] 0.9 {ratio} Normal [facility] Comment on above: Performed By: #### U RCX #### [facility] [address] [address] [address] Ramses Dumas ALP [Catalytic activity/Vol] 92 U/L Normal 46-116 [facility] Comment on above: Performed By: #### U RCX #### [facility] [address] [place] [address] Dr. Ramses Dumas ALT [Catalytic activity/Vol] 139 U/L Critically high 14-59 [facility] Comment on above: Performed By: #### U RCX #### [facility] [address] [address] [address] Ramses Dumas Anion gap [Moles/Vol] 10.2 mmol/L Normal [facility] Comment on above: Performed By: #### U RCX #### [facility] [address] [place] [address] Dr. Ramses Dumas AST [Catalytic activity/Vol] 112 U/L Critically high 15-37 [facility] Comment on above: Performed By: #### U RCX #### [facility] [address] [place] [address] Dr. Ramses Dumas Bilirubin [Mass/Vol] 0.2 mg/dL Normal 0.2-1.0 [facility] Comment on above: Performed By: #### U RCX #### [facility] [address] [place] [address] Dr. Ramses Dumas Calcium [Mass/Vol] 8.8 mg/dL Normal 8.5-10.1 [facility] Comment on above: Performed By: #### U RCX #### [facility] [address] [place] [address] Dr. Ramses Dumas Chloride [Moles/Vol] 105 mmol/L Normal 98-107 [facility] Comment on above: Performed By: #### U RCX #### [facility] [address] [address] [address] Ramses Dumas CO2 [Moles/Vol] 26.3 mmol/L Normal 21.0-32.0 [facility] Comment on above: Performed By: #### U RCX #### [facility] [address] [address] [address] Ramses Dumas Creatinine [Mass/Vol] 0.95 mg/dL Normal 0.55-1.02 [facility] Comment on above: Performed By: #### U RCX #### [facility] [address] [place] [address] Dr. Ramses Dumas EGFR-AF CZECH >60 Normal >=60 [facility] Comment on above: Performed By: #### U RCX #### [facility] [address] [address] [address] Ramses Dumas EGFR-NON AF CZECH >60 Normal >=60 [facility] Comment on above: Performed By: #### U RCX #### [facility] [address] [address] [address] Ramses Dumas Globulin (S) [Mass/Vol] 3.9 g/dL Normal [facility] Comment on above: Performed By: #### U RCX #### [facility] [address] [address] [address] Ramses Dumas Glucose [Mass/Vol] 137 mg/dL Critically high 74-106 [facility] Comment on above: Performed By: #### U RCX #### [facility] [address] [address] [address] Ramses Dumas Potassium [Moles/Vol] 3.5 mmol/L Normal 3.5-5.1 [facility] Comment on above: Performed By: #### U RCX #### [facility] [address] [address] [address] Ramses Dumas Protein [Mass/Vol] 7.4 g/dL Normal 6.4-8.2 [facility] Comment on above: Performed By: #### U RCX #### [facility] [address] [address] [address] Ramses Dumas Sodium [Moles/Vol] 138 mmol/L Normal 136-145 [facility] Comment on above: Performed By: #### U RCX #### [facility] [address] [address] [address] Ramses Dumas Urea nitrogen [Mass/Vol] 11.0 mg/dL Normal 7.0-18.0 [facility] Comment on above: Performed By: #### U RCX #### [facility] [address] [address] [address] Ramses Dmuas Urea nitrogen/Creatinine [Mass ratio] 11.6 mg/mg Normal [facility] Comment on above: Performed By: #### U RCX #### [facility] [address] [place] [address] Dr. Ramses Dumas URINE MICROSCOPIC ONLYon BACTERIA LARGE Abnormal NONE SEEN [facility] Comment on above: Performed By: #### U RCX #### [facility] [address] [place] [address] Dr. Ramses Dumas Bacteria identified Cx Nom (U) CX ALREADY ORDERED Normal [facility] Comment on above: Performed By: #### U RCX #### [facility] [address] [place] [address] Dr. Ramses Dumas CAST NONE SEEN Normal NONE SEEN [facility] Comment on above: Performed By: #### U RCX #### [facility] [address] [place] [address] Dr. Ramses Dumas Crystals LM Nom (Urine sed) NONE SEEN Normal NONE SEEN [facility] Comment on above: Performed By: #### U RCX #### [facility] [address] [place] [address] Dr. Ramses Dumas Epithelial cells LM Ql (Urine sed) MANY Abnormal NONE SEEN /RARE [facility] Comment on above: Performed By: #### U RCX #### [facility] [address] [address] [address] Ramses Dumas MUCOUS NONE SEEN Normal NONE SEEN [facility] Comment on above: Performed By: #### U RCX #### [facility] [address] [place] [address] Dr. Ramses Dumas RBC 5-10 Abnormal 0-2 [facility] Comment on above: Performed By: #### U RCX #### [facility] [address] [place] [address] Dr. Ramses Dumas WBC 50-75 Abnormal NONE SEEN [facility] Comment on above: Performed By: #### U RCX #### [facility] [address] [place] [address] Dr. Ramses Dumas CULTURE URINEon 08-15-2022 CULTURE [...] F Tetracycline >=16 R F Normal [facility] Comment on above: Performed By: #### U RCX #### [facility] [address] [place] [address] Dr. Ramses Dumas ACETAMINOPHENon 08-13-2022 Acetaminophen [Mass/Vol] ug/mL Critically low 10.0-30.0 [facility] Comment on above: Performed By: #### U RCX #### [facility] [address] [place] [address] Dr. Ramses Dumas CBC AUTO DIFFon 08-13-2022 BASO # 0.1 103/ul Normal 0.0-0.1 [facility] Comment on above: Performed By: #### C VDTBH #### [facility] [address] [place] [address] Dr. Ramses Dumas Basophils/100 WBC (Bld) 0.8 % Normal 0.2-2.0 [facility] Comment on above: Performed By: #### C VDTBH #### [facility] [address] [place] [address] Dr. Ramses Dumas EO # 0.1 103/ul Normal 0.0-0.7 [facility] Comment on above: Performed By: #### C VDTBH #### [facility] [address] [place] [address] Dr. Ramses Dumas Eosinophils/100 WBC (Bld) 1.6 % Normal 0.9-7.0 [facility] Comment on above: Performed By: #### C VDTBH #### [facility] [address] [place] [address] Dr. Ramses Dumas Erythrocyte distribution width (RBC) [Ratio] 13.3 % Normal 11.0-15.0 [facility] Comment on above: Performed By: #### C VDTBH #### [facility] [address] [place] [address] Dr. Ramses Dumas Hematocrit (Bld) [Volume fraction] 40.6 % Normal 36.0-48.0 [facility] Comment on above: Performed By: #### C VDTBH #### [facility] [address] [place] [address] Dr. Ramses Dumas Hemoglobin (Bld) [Mass/Vol] 13.2 g/dL Normal 12.0-16.0 [facility] Comment on above: Performed By: #### C VDTBH #### [facility] [address] [place] [address] Dr. aRmses Dumas IG # 0.01 10e3/ul Normal 0.00-0.03 [facility] Comment on above: Performed By: #### C VDTBH #### [facility] [address] [place] [address] Dr. Ramses Dumas IG % 0.2 % Normal 0.0-0.5 [facility] Comment on above: Performed By: #### C VDTBH #### [facility] [address] [place] [address] Dr. Ramses Dumas LYMPH # 2.4 103/ul Normal 1.2-3.8 [facility] Comment on above: Performed By: #### C VDTBH #### [facility] [address] [address] [address] Ramses Dumas Lymphocytes/100 WBC (Bld) 37.7 % Normal 20.5-60.0 [facility] Comment on above: Performed By: #### C VDTBH #### [facility] [address] [place] [address] Dr. Ramses Dumas MANUAL DIFF REQ NO Normal [facility] Comment on above: Performed By: #### C VDTBH #### [facility] [address] [place] [address] Dr. Ramses Dumas MCH (RBC) [Entitic mass] 26.7 pg Normal 26.7-34.0 [facility] Comment on above: Performed By: #### C VDTBH #### [facility] [address] [place] [address] Dr. Ramses Dumas MCHC (RBC) [Mass/Vol] 32.5 g/dL Normal 29.9-35.2 [facility] Comment on above: Performed By: #### C VDTBH #### [facility] [address] [place] [address] Dr. Ramses Dumas MCV (RBC) [Entitic vol] 82.0 fL Normal 81.0-99.0 [facility] Comment on above: Performed By: #### C VDTBH #### [facility] [address] [place] [address] Dr. Ramses Dumas MONO # 0.6 103/ul Normal 0.3-0.8 [facility] Comment on above: Performed By: #### C VDTBH #### [facility] [address] [place] [address] Dr. Ramses Dumas Monocytes/100 WBC (Bld) 8.6 % Normal 1.7-12.0 [facility] Comment on above: Performed By: #### C VDTBH #### [facility] [address] [place] [address] Dr. Ramses Dumas NEUT # 3.3 103/ul Normal 1.4-6.5 [facility] Comment on above: Performed By: #### C VDTBH #### [facility] [address] [address] [address] Ramses Dumas Neutrophils/100 WBC (Bld) 51.1 % Normal 43.0-75.0 [facility] Comment on above: Performed By: #### C VDTBH #### [facility] [address] [address] [address] Ramses Dumas Platelet mean volume (Bld) [Entitic vol] 8.7 fL Critically low 9.5-13.5 [facility] Comment on above: Performed By: #### C VDTBH #### [facility] [address] [place] [address] Dr. Ramses Dumas PLT 409 103/ul Normal 150-450 [facility] Comment on above: Performed By: #### C VDTBH #### [facility] [address] [place] [address] Dr. Ramses Dumas RBC 4.95 106/ul Normal 4.20-5.40 [facility] Comment on above: Performed By: #### C VDTBH #### [facility] [address] [place] [address] Dr. Ramses Dumas WBC 6.4 103/ul Normal 4.0-11.0 [facility] Comment on above: Performed By: #### C VDTBH #### [facility] [address] [place] [address] Dr. Ramses Dumas Covid-19 PCR ([facility])on 07-20 SARS-CoV-2 (COVID-19) RNA FRANCESCA+probe Ql (Unsp spec) Not detected Normal NOT DETECTED [facility] Comment on above: Result Comment: When [...] for this test is supported by the [employer] Tender of Health and Human Service's declaration that [...] used). Performed By: #### C VDTB #### [facility] [address] [place] [address] Dr. Ramses Dumas DRUG SCREEN RAPID (URINE)on 08-13-2022 AMP Negative Normal NEGATIVE [facility] Comment on above: Performed By: #### C BC #### [facility] [address] [place] [address] Dr. Ramses Dumas BAR Negative Normal NEGATIVE [facility] Comment on above: Performed By: #### C BC #### [facility] [address] [place] [address] Dr. Ramses Dumas BUP Negative Normal NEGATIVE [facility] Comment on above: Performed By: #### C BC #### [facility] [address] [place] [address] Dr. Ramses Dumas BZO Negative Normal NEGATIVE [facility] Comment on above: Performed By: #### C BC #### [facility] [address] [place] [address] Dr. Ramses Dumas ODILIA Negative Normal NEGATIVE [facility] Comment on above: Performed By: #### C BC #### [facility] [address] [place] [address] Dr. Ramses Dumas CUT-OFFS SEE BELOW Normal [facility] Comment on above: Result Comment: AMP [...] ng/mL Performed By: #### C BC #### [facility] [address] [place] [address] Dr. Ramses Dumas DRUG CUT HEADER DRUG CLASS TEST SYST EM CUT-OFF CONCENTRATIONS ARE FOLLOWS: Normal [facility] Comment on above: Performed By: #### C BC #### [facility] [address] [place] [address] Dr. Ramses Dumas mAMP Negative Normal NEGATIVE [facility] Comment on above: Performed By: #### C BC #### [facility] [address] [place] [address] Dr. Ramses Dumas MTD Negative Normal NEGATIVE [facility] Comment on above: Performed By: #### C BC #### [facility] [address] [place] [address] Dr. Ramses Dumas OPI Negative Normal NEGATIVE [facility] Comment on above: Performed By: #### C BC #### [facility] [address] [place] [address] Dr. Ramses Dumas OXY Negative Normal NEGATIVE [facility] Comment on above: Performed By: #### C BC #### [facility] [address] [place] [address] Dr. Ramses Dumas PCP Negative Normal NEGATIVE [facility] Comment on above: Performed By: #### C BC #### [facility] [address] [place] [address] Dr. Ramses Dumas PPX Negative Normal NEGATIVE [facility] Comment on above: Performed By: #### C BC #### [facility] [address] [place] [address] Dr. Ramses Dumas TCA Negative Normal NEGATIVE [facility] Comment on above: Performed By: #### C BC #### [facility] [address] [place] [address] Dr. Ramses Dumas THC Negative Normal NEGATIVE [facility] Comment on above: Performed By: #### C BC #### [facility] [address] [place] [address] Dr. Ramses Dumas ER URINE PROFILEon 2 Bilirubin Ql (U) Negative Normal NEGATIVE [facility] Comment on above: Performed By: #### C BC #### [facility] [address] [place] [address] Dr. Ramses Dumas Clarity (U) CLEAR Normal CLEAR [facility] Comment on above: Performed By: #### C BC #### [facility] [address] [place] [address] Dr. Ramses Dumas Color (U) LT. YELLOW Normal YELLOW [facility] Comment on above: Performed By: #### C BC #### [facility] [address] [place] [address] Dr. Ramses DELEON A micrscopic examination will be performed if indicated. Normal [facility] Comment on above: Performed By: #### C BC #### [facility] [address] [place] [address] Dr. Ramses Dumas Glucose Ql (U) Negative Normal NEGATIVE [facility] Comment on above: Performed By: #### C BC #### [facility] [address] [place] [address] Dr. Ramses Dumas Hemoglobin Ql (U) LARGE Abnormal NEGATIVE [facility] Comment on above: Performed By: #### C BC #### [facility] [address] [place] [address] Dr. Ramses Dumas Ketones Ql (U) Negative Normal NEGATIVE [facility] Comment on above: Performed By: #### C BC #### [facility] [address] [place] [address] Dr. Ramses Dumas LEUKOCYTES LARGE Abnormal NEGATIVE [facility] Comment on above: Performed By: #### C BC #### [facility] [address] [place] [address] Dr. Ramses Dumas Nitrite Ql (U) Positive Abnormal NEGATIVE [facility] Comment on above: Performed By: #### C BC #### [facility] [address] [place] [address] Dr. Ramses Dumas pH (U) 6.0 [pH] Normal 5-9 [facility] Comment on above: Performed By: #### C BC #### [facility] [address] [place] [address] Dr. Ramses Dumas Protein (U) [Mass/Vol] 30 mg/dL Abnormal NEGAT CHRIS/ TRACE [facility] Comment on above: Performed By: #### C BC #### [facility] [address] [place] [address] Dr. Ramses Dumas SPEC GRAVITY >=1.030 Abnormal 1.005-<=1.02 5 [facility] Comment on above: Performed By: #### C BC #### [facility] [address] [place] [address] Dr. Ramses Dumas UR MICRO IND INDICATED Normal [facility] Comment on above: Performed By: #### C BC #### [facility] [address] [place] [address] Dr. Ramses Dumas Urobilinogen Qn (U) 0.2 {Lucero'U}/dL Normal 0.2 - 1. 0 [facility] Comment on above: Performed By: #### C BC #### [facility] [address] [place] [address] Dr. Ramses Dumas ETHANOL (BLD ALC)on 08-13-20 22 ALC NOTE NOTE: 80 mg/dl is th e legal limit for a blood alcohol level Normal [facility] Comment on above: Performed By: #### B LDCX2 #### [facility] [address] [place] [address] Dr. Ramses Dumas Ethanol [Mass/Vol] mg/dL Normal [facility] Comment on above: Performed By: #### B LDCX2 #### [facility] [address] [place] [address] Dr. Ramses Dumas URon 08-13-2022 , QUAL Negative Normal NEGATIVE [facility] Comment on above: Performed By: #### C BC #### [facility] [address] [place] [address] Dr. Ramses Dumas PROF 14(COMP METB)on 022 Albumin [Mass/Vol] 3.8 g/dL Normal 3.4-5.0 [facility] Comment on above: Performed By: #### U RCX #### [facility] [address] [place] [address] Dr. Ramses Dumas Albumin/Globulin [Mass ratio] 0.9 {ratio} Normal [facility] Comment on above: Performed By: #### U RCX #### [facility] [address] [address] [address] Ramses Dumas ALP [Catalytic activity/Vol] 82 U/L Normal 46-116 [facility] Comment on above: Performed By: #### U RCX #### [facility] [address] [place] [address] Dr. Ramses Dumas ALT [Catalytic activity/Vol] 41 U/L Normal 14-59 [facility] Comment on above: Performed By: #### U RCX #### [facility] [address] [place] [address] Dr. Ramses Dumas Anion gap [Moles/Vol] 9.3 mmol/L Normal [facility] Comment on above: Performed By: #### U RCX #### [facility] [address] [place] [address] Dr. Ramses Dumas AST [Catalytic activity/Vol] 21 U/L Normal 15-37 [facility] Comment on above: Performed By: #### U RCX #### [facility] [address] [place] [address] Dr. Ramses Dumas Bilirubin [Mass/Vol] 0.3 mg/dL Normal 0.2-1.0 [facility] Comment on above: Performed By: #### U RCX #### [facility] [address] [place] [address] Dr. Ramses Dumas Calcium [Mass/Vol] 8.9 mg/dL Normal 8.5-10.1 [facility] Comment on above: Performed By: #### U RCX #### [facility] [address] [place] [address] Dr. Ramses Dumas Chloride [Moles/Vol] 105 mmol/L Normal 98-107 [facility] Comment on above: Performed By: #### U RCX #### [facility] [address] [address] [address] Ramses Dumas CO2 [Moles/Vol] 28.5 mmol/L Normal 21.0-32.0 [facility] Comment on above: Performed By: #### U RCX #### [facility] [address] [address] [address] Ramses Dumas Creatinine [Mass/Vol] 0.81 mg/dL Normal 0.55-1.02 [facility] Comment on above: Performed By: #### U RCX #### [facility] [address] [address] [address] Ramses Dumas EGFR-AF CZECH >60 Normal >=60 [facility] Comment on above: Performed By: #### U RCX #### [facility] [address] [address] [address] Ramses Dumas EGFR-NON AF CZECH >60 Normal >=60 [facility] Comment on above: Performed By: #### U RCX #### [facility] [address] [address] [address] Ramses Dumas Globulin (S) [Mass/Vol] 4.1 g/dL Normal [facility] Comment on above: Performed By: #### U RCX #### [facility] [address] [address] [address] Ramses Dumas Glucose [Mass/Vol] 100 mg/dL Normal 74-106 [facility] Comment on above: Performed By: #### U RCX #### [facility] [address] [address] [address] Ramses Dumas Potassium [Moles/Vol] 3.8 mmol/L Normal 3.5-5.1 [facility] Comment on above: Performed By: #### U RCX #### [facility] [address] [address] [address] Ramses Dumas Protein [Mass/Vol] 7.9 g/dL Normal 6.4-8.2 [facility] Comment on above: Performed By: #### U RCX #### [facility] [address] [address] [address] Ramses Dumas Sodium [Moles/Vol] 139 mmol/L Normal 136-145 [facility] Comment on above: Performed By: #### U RCX #### [facility] [address] [address] [address] Ramses Dumas Urea nitrogen [Mass/Vol] 10.0 mg/dL Normal 7.0-18.0 [facility] Comment on above: Performed By: #### U RCX #### [facility] [address] [address] [address] Ramses Dumas Urea nitrogen/Creatinine [Mass ratio] 12.3 mg/mg Normal [facility] Comment on above: Performed By: #### U RCX #### [facility] [address] [place] [address] Dr. Ramses Dumas SALICYLATEon 08-13-2022 SALICYLATE <2.8 Normal <=19.9 [facility] Comment on above: Performed By: #### U RCX #### [facility] [address] [place] [address] Dr. Ramses Dumas URINE MICROSCOPIC ONLYon BACTERIA LARGE Abnormal NONE SEEN [facility] Comment on above: Performed By: #### C BC #### [facility] [address] [place] [address] Dr. Ramses Dumas Bacteria identified Cx Nom (U) INDICATED Normal [facility] Comment on above: Performed By: #### C BC #### [facility] [address] [place] [address] Dr. Ramses Dumas CA OX CRYSTALS RARE Normal [facility] Comment on above: Performed By: #### C BC #### [facility] [address] [place] [address] Dr. Ramses Dumas CAST NONE SEEN Normal NONE SEEN [facility] Comment on above: Performed By: #### C BC #### [facility] [address] [place] [address] Dr. Ramses Dumas Crystals LM Nom (Urine sed) SEEN Abnormal NONE SEEN [facility] Comment on above: Performed By: #### C BC #### [facility] [address] [place] [address] Dr. Ramses Dumas Epithelial cells LM Ql (Urine sed) MODERATE Abnormal NONE SEEN /RARE [facility] Comment on above: Performed By: #### C BC #### [facility] [address] [place] [address] Dr. Ramses Dumas MUCOUS NONE SEEN Normal NONE SEEN [facility] Comment on above: Performed By: #### C BC #### [facility] [address] [place] [address] Dr. Ramses Dumas RBC 10-20 Abnormal 0-2 [facility] Comment on above: Performed By: #### C BC #### [facility] [address] [place] [address] Dr. Ramses Dumas WBC 20-50 Abnormal NONE SEEN [facility] Comment on above: Performed By: #### C BC #### [facility] [address] [place] [address] Dr. Ramses Dumas Pap IG,rfx Aptima HPV all pt hon 08-09-2022 . . Normal [facility] Comment on above: Performed By: #### C MP #### [facility] [address] [place] [address] Dr. Ramses Dumas DIAGNOSIS: Comment Abnormal [facility] Comment on above: Result Comment: EPIT HELIAL CELL ABNORMALITY. LOW GRADE SQUAMOUS INTRAEPITHELIAL LESION (LSIL). Performed By: #### C MP #### [facility] [address] [place] [address] Dr. Ramses Dumas Electronically signed by: Comment Normal [facility] Comment on above: Result Comment: Arnaud Joseph MD, Pathologist Performed By: #### C MP #### [facility] [address] [place] [address] Dr. Ramses Dumas HPV Aptima Negative Normal Negative [facility] Comment on above: Result Comment: This nucleic acid amplification test detects fourteen high-risk HPV types (16,18,31,33,35,39,45,51,52,56,58,59,66,68) without differentiation. Performed By: #### C MP #### [facility] [address] [address] [address] Ramses Dumas Methodology: Comment Normal [facility] Comment on above: Result Comment: This liquid based ThinPrep(R) pap test was screened with the use of an image guided system. Performed By: #### C MP #### [facility] [address] [place] [address] Dr. Ramses Dumas Note: Comment Normal [facility] Comment on above: Result Comment: The Pap smear is a screening test designed to aid in the detection of premalignant and malignant conditions of the uterine cervix. It is not a diagnostic procedure and should not be used as the sole means of detecting cervical cancer. Both false-positive and false-negative reports do occur. . Performed By: #### C MP #### [facility] [address] [place] [address] Dr. Ramses Dumas Pathologist Provided ICD10 Comment Normal [facility] Comment on above: Result Comment: [id number]. [id number] Performed By: #### C MP #### [facility] [address] [place] [address] Dr. Ramses Dumas Performed by: Comment Normal [facility] Comment on above: Result Comment: Gail Ruano, Communications Station Manager (ASCP) Performed By: #### C MP #### [facility] [address] [place] [address] Dr. Ramses Dumas Reflex Criteria: Comment Normal [facility] Comment on above: Result Comment: See below for HPV testing results. . Performed By: #### C MP #### [facility] [address] [place], [place] [id number] Dr. Ramses Dumas Specimen adequacy: Comment Normal [facility] Comment on above: Result Comment: Sati sfactory for evaluation. Endocervical and/or squamous metaplastic cells (endocervical component) are present. Performed By: #### C MP #### [facility] [address] [place] [address] Dr. Ramses Dumas Vital Signs Date Time Vital Sign Value Performing Clinician Faci lity 04-10-2024 07:30-0400 Body temperature 98 [degF] MD Domingo Das Work Phone: [facility] 04-10-2024 07:30-0400 Diastolic blood pressure 73 mm[Hg] MD Domingo Das Work Phone: [facility] 04-10-2024 07:30-0400 Heart rate 75 /min MD Domingo Das Work Phone: [facility] 04-10-2024 07:30-0400 Respiratory rate 16 /min MD Domingo Das Work Phone: [facility] 04-10-2024 07:30-0400 SaO2% (BldA) [Mass fraction] 100 % MD Domingo Das Work Phone: [facility] 04-10-2024 07:30-0400 Systolic blood pressure 123 mm[Hg] MD Domingo Das Work Phone: [facility] 04-08-2024 22:44-0400 Body height 167.64 cm MD Domingo Das Work Phone: [facility] 04-08-2024 22:44-0400 Body weight 86.58 kg MD Domingo Das Work Phone: [facility] 03-20-2023 10:30-0400 Blood Pressure Location Nona VILLA [facility] 03-20-2023 10:30-0400 Diastolic blood pressure 73 mm[Hg] Nona VILLA [facility] 03-20-2023 10:30-0400 Heart rate 80 /min Nona VILLA [facility] 03-20-2023 10:30-0400 Respiratory rate 16 /min Nona VILLA [facility] 03-20-2023 10:30-0400 Systolic blood pressure 128 mm[Hg] Nona VILLA [facility] Encounters Encounter Date Encounter Type Care Provider Facility Start: 04-09-2024 Non-patient / Non-visit MD Vicente Das Work Phone: [facility] Work Phone: Start: 04-08-2024 End: 04-10-2024 Evaluation and management of inpatient MD Domingo Das Work Phone: [facility] Work Phone: Start: 12-29-2023 End: 12-29-2023 ambulatory Glne Graff Facility:[facility] Start: 12-17-2023 End: 12-17-2023 ambulatory CELIO CARLOTA Not Available Start: 12-04-2023 End: 12-05-2023 ambulatory Nona VILLA Facility:[facility] Start: 12-04-2023 End: 12-04-2023 Patient encounter procedure Nona VILLA [facility] Start: 04-09-2023 End: 04-10-2023 ambulatory Nona VILLA Facility:[id number] Start: 03-20-2023 End: 03-21-2023 ambulatory Nona VILLA Facility:[facility] Start: 03-20-2023 End: 03-20-2023 Patient encounter procedure Nona VILLA [facility] Start: 02-16-2023 End: 02-16-[address] DOMINGO DAS . Facility:[facility] Start: 02-02-2023 End: 02-02-[address] DOMINGO DAS . Facility:[facility] Start: 12-26-2022 End: 12-27-2022 ambulatory Nona VILLA Facility:[facility] Start: 12-26-2022 End: 12-26-2022 Patient encounter procedure Nona VILLA [facility] Start: 12-16-2022 End: 12-17-[address] NONA VILLA . Facility:[facility] Start: 12-15-2022 End: 12-16-[address] NONA VILLA . Facility:[facility] Start: 11-27-[address] DOMINGO DAS . Facili ty:[facility] Start: 11-07-2022 End: 11-07-[address] DOMINGO DAS . Facility:[facility] Start: 11-04-2022 Encounter for preprocedural cardiovascular examination DR JEFFERSON GIBBS . [facility] Start: 11-04-2022 Encounter for preprocedural laboratory examination DR JEFFERSON GIBBS . [facility] Start: 11-03-2022 End: 11-04-2022 Encounter for preprocedural cardiovascular examination DR DOMINGO DAS . Facility:[facility] Start: 11-03-2022 End: 11-04-[address] DOMINGO DAS . Facility:[facility] Start: 09-20-2022 Encounter for preprocedural laboratory examination DR NONA VILLA . [facility] Start: 09-18-2022 End: 09-18-[address] NONA VILLA . Facility:[facility] Start: 09-16-2022 End: 09-17-[address] NONA VILLA . Facility:[facility] Start: 09-16-2022 End: 09-17-2022 Encounter for preprocedural laboratory examination DR NONA VILLA . Facility:[facility] Start: 09-05-2022 End: 09-05-2022 ambulatory ORA BOND . Facility:[facility] Start: 09-04-2022 End: 09-04-2022 ambulatory DANIEL SANTIAGO Facility:[facility] Start: 09-04-2022 End: 09-04-2022 ambulatory Daniel Santiago APRN.UNISAW OPERATOR Work Phone: Urology Comment on above: NO SHOW (Primary Dx) Start: 09-04-2022 End: 09-04-2022 Telemedicine consultation with patient Daniel Santiago APRN.UNISAW OPERATOR Work Phone: [facility] Start: 08-28-2022 End: 08-29-[address] ERWIN MOORE Facility:[facility] Start: 08-22-2022 End: 08-24-[address] DOMINGO DAS . Facility:[facility] Start: 08-13-2022 End: 08-13-2022 ambulatory ORA BOND . Facility:[facility] Start: 07-31-2022 Encounter for cervic al smear to confirm findings of recent normal smear following initial abnormal smear DR JEFFERSON GIBBS . [facility] Start: 07-30-2022 End: 07-30-2022 ambulatory [...] Activity Detail Author Start: 04-10-2024 [facility] Start: 04-08-2024 Referral to Resin Remover [facility] Start: 04-08-2024 Hospital admission [facility] Start: 04-08-2024 [facility] Start: 06-19-2022 Influenza vaccination INFLUENZA (#1) [facility] Start: 10-19-2021 DEPRESSION ASSESSMENT DEPRESSION ASSESSMENT [facility] Start: 2021 HPV TESTING HPV TESTING [facility] Start: 2012 PAP TESTING PAP TESTING [facility] Start: 2010 Urine microalbumin profile DTAP,TDAP,TD (1 - Tdap) [facility] Start: 2009 HEPATITIS C SCREENING HEPATITIS C SCREENING [facility] Start: 2009 HIV SCREENING HIV SCREENING [facility] Start: 03-14-1992 COVID-19 VACCINE (#1) COVID-19 VACCINE (#1) [facility] Start: 1991 HEPATITIS B (1 of 3 - 3-dose series) HEPATITIS B (1 of 3 - 3-dose series) [facility] Patient Education Bipolar Disord er (DC) [facility] DC Instructions Know your Meds [facility] Work Phone: Patient referral [facility] Work Phone: Immunizations Immunization Date Immunization Notes Care Provider Beata moore 08-01-2019 influenza virus vaccine, unspecified formulation Nona VILLA [facility] 08-09-2018 tetanus toxoid, redu franco diphtheria toxoid, and acellular pertussis vaccine, adsorbed Nona VILLA [facility] 08-08-2018 influenza virus vaccine, unspecified formulation Nona VILLA [facility] 06-19-2004 hepatitis B vaccine, pediatric or pediatric/adolescent dosage Nona VILLA [facility] 03-27-2004 hepatitis B vaccine, pediatric or pediatric/adolescent dosage Nona VILLA [facility] 12-18-2003 hepatitis B vaccine, pediatric or pediatric/adolescent dosage Nona VILLA [facility] 12-18-2003 measles, mumps and rubella virus vaccine Nona VILLA [facility] 04-10-1993 DTaP, unspecified formulation Nona VILLA [facility] 04-10-1993 poliovirus vaccine, unspecified formulation Nona VILLA [facility] 12-28-1992 Hib, unspecified formulation Nona VILLA [facility] 12-28-1992 measles, mumps and rubella virus vaccine Nona Guardly [facility] 03-26-1992 Hib, unspecified formulation Nona VILLA [facility] 01-18-1992 Hib, unspecified formulation Nona VILLA [facility] 1991 Hib, unspecified formulation Nona VILLA [facility] Payers Date Payer Category Payer Self-pay 2021 Medicaid [place] MED[place] TERM 09/17 [employer] [employer] [id number] 2021-Present [phone] [place] [address] Medicaid [id number] 1991 Unknown [id number] 2.16.840.1.396815.3.579.2.593 1991 Unknown [id number] 2.16.840.1.599290.3.579.2.593 1991 Unknown [id number] 2.16.840.1.624844.3.579.2.593 1991 Unknown [id number] 2.16.840.1.226567.3.579.2.593 1991 Unknown [id number] 2.16.840.1.047609.3.579.2.593 1991 Unknown [id number] 2.16.840.1.463910.3.579.2.593 1991 Unknown [id number] 2.16.840.1.030197.3.579.2.593 1991 Unknown [id number] 2.16.840.1.072804.3.579.2.593 1991 Unknown [id number] 2.16.840.1.766835.3.579.2.593 1991 Unknown [id number] 2.16.840.1.494583.3.579.2.593 1991 Unknown [id number] 2.16.840.1.664545.3.579.2.593 1991 Unknown [id number] 2.16.840.1.743625.3.579.2.593 1991 Unknown [id number] 2.16.840.1.040091.3.579.2.593 1991 Unknown [id number] 2.16.840.1.405051.3.579.2.593 1991 Unknown [id number] 2.16.840.1.096032.3.579.2.593 1991 Unknown [id number] 2.16.840.1.515485.3.579.2.593 1991 Unknown [id number] 2.16.840.1.302506.3.579.2.727 1991 Unknown [id number] 2.16.840.1.575339.3.579.2.727 1991 Unknown [id number] 2.16.840.1.511041.3.579.2.727 1991 Unknown [id number] 2.16.840.1.105079.3.579.2.727 1991 Unknown [id number] 2.16.840.1.646821.3.579.2.1259 1959 Medicaid [id number] 1958 Self-pay [id number] 1959 Unknown [id number] Unknown [id number] 2.16.840.1.407338.3.579.2.531 Unknown [id number] 2.16.840.1.820054.3.579.2.531 Social History Date Type Detail Facility Tobacco smoking status NYIS Tobacco smoking consumption unknown [facility] Start: 1991 Sex Assigned At Not on file C [facility] Start: 08-20-2021 End: 04-09-2024 Tobacco smoking status Never smoked tobacco (finding) [facility] Tobacco smoking status Never [facility] Sex Assigned At Female [facility] Start: 1991 Sex Assigned At Female F [facility] Goals Date Patient Goal Desired Activity /State Functional Status Date Assessment Result Facility 04-10-2024 Functional status Patient at [facility] Work Phone: 03-20-2023 Functional Status N/A [facility] Mental Status Date Assessment Result Facility 04-10-2024 Cognitive function Cognitive Sta tus Patient at [facility] Work Phone: Clinical Notes 07-03-2022 to 04-10-2024 Note Date & Type Note Facility 04-10-2024 Discharge summary Note Date/Time April 10, 2024 7:10am [facility] [address] [place] [address] Discharge Summary Signed Patient: Diana Barriga MR#: [id number] : 1990 Acct:[id number] Age/Sex: 33 / F Adm Date: 4 Loc: 1S Room: [address] [place] [address]: Arnulfo Aviles MD Copies to: [...] Dr. Fenton but wants to switch to [facility]. Along with this patient is in marriage counseling with her current and that today's session was not good. Patient stated she needs to be home to take care of her kids, the custody [place], and her marriage. Patient upset because she missed her son's play and has plans to take kids to [place] tomorrow. Patient denies any suicidal ideation denies hallucinations denies racing thoughts. Patient reports that there is no changes in her appetite or sleep. Patient reports that she feels fine. She has tried a lot of medications in the past and believes none of them have worked. He is going to [facility] for psych therapy. He wants to try [...] She has an appointment coming up with [facility]. She deniedrecent suicide attempts or self injures [...] Restriction Diet: Regular Instructions: Bipolar Disorder (DC), [facility] DC Instructions, Know your Meds [...] signed by Arnulfo Aviles MD> 04/10/24 0929 [facility] Work Phone: 1(104) 805-649306-22-2024 History and physical note Author Arnulfo ornelas [facility] April 09, 2024 9:09am Note Date/Time April 09, 2024 8:43 am [facility] [address] [place] [address] Psychiatry H&P Signed Patient: Diana Barriga MR#: [id number] : 1990 Acct:[id number] Age/Sex: 33 / F Adm Date: 4 Loc: Room: [address] [place] [address] Type: ADM IN Attending Dr: Arnulfo Aviles [...] Dr. Fenton but wants to switch to [facility]. Along with this patient is in marriage counseling with her current and that today's session was not good. Patient stated she needs to be home to take care of her kids, the custody [place], and her marriage. Patient upset because she missed her son's play and has plans to take kids to [place] tomorrow. Patient denies any suicidal ideation denies hallucinations denies racing thoughts. Patient reports that there is no changes in her appetite or sleep. Patient reports that she feels fine. She has tried a lot of medications in the past and believes none of them have worked. He is going to [facility] for psych therapy. He wants to try therapy before any medications. 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 Review of symptoms: Constitutional: Denies chills [...] homicidally, denies suicidality Insight: Intact Judgment: Intact [facility] Medical History (Updated 08/14/22 @ 08:17 by [...] signed by Arnulfo Aviles MD> 04/09/24 0909 [facility] Work Phone: 1(542) 652-895906-02-2023 Hospital Discharge instructions Follow Up Care 03/20/2023 11:51:58 With:IDALMIS BORDEN, Nona Turner, URL Address: [address] [place] [address]- When: Unknown [facility] 06-02-2023 Hospital Discharge instructions Patient Education [...] include: ?8 oz (237 mL) of milk, zhkhhzs-qfxlyhpvmlta-mulao milk, and calcium- fortifiedfruit juice. Calcium-fortified means [...] ?Spinach (cooked), rhubarb, beets, sweet potatoes, and Martiniquais chard. ?Peanuts. ?Potato chips, filipino fries, and baked potatoes with skin on. ?Nuts and nut products. ?Chocolate. If you regularly take a diuretic medicine, make sure to eat at least 1 or 2 servings of fruits or vegetables that are high in potassium each day. These include: ?Avocado. ?Banana. ?Cypress, prune, carrot, or tomato juice. ?Baked potato. [...] magnesium, fish oil, or vitamin B6. Take rqes-fpa-osruswe and prescription medicines only as told by [...] provider. Document Revised: 06/16/2022 Document Reviewed: 06/16/2022 [employer] Patient Education 2022 [employer]. Follow Up Care 12/26/2022 08:46:46 With:IDALMIS BORDEN, Nona Turner, URL Address: [facility] [address] , [place] [address]- When: Unknown [facility] 01-20-2023 NoteOPERATIVE NOTE OPERATION DATE: 11/07/2022 PROCEDURE: Mery endometrial ablation with LEEP. PREOPERATIVE DIAGNOSIS: Cervical dysplasia, menorrhagia. POSTOPERATIVE DIAGNOSIS: Cervical dysplasia, menorrhagia. ANESTHESIA: General. SURGEON: Jefferson Gibbs D.O. HEAVY EQUIPMENT SERVICE MANAGER: None. BLOOD LOSS: 50 mL. URINE [...] taken to Recovery Room in stable condition[id number] Discharge instructions Follow Up Care 09/25/2022 13:54:04 With:IDALMIS BORDEN, Nona Turner, URL Address: [address] [place] [address]- When: Unknown [facility] 12-01-2022 NoteOPERATIVE NOTE OPERATION DATE: [...] and wheeled to PACU in stable condition.[id number] NoteHNO ID: [id number] Author: Daniel Santiago APRN.UNISAW OPERATOR Service: ? Author Type: Nurse Practitioner Type: Progress Notes Filed: 09/04/2022 7:46 AM Note Text: The patient did not show up for this appointment. The patient did not show up for this appointment.[id number] History of Present illness Narrative* Daniel Santiago APRN.WAYNE - 09/04/2022 7:40 AM EST The patient did not show up for this appointment. The patient did not show up for this appointment. [facility] NotePROCEDURE: XR ANKLE LT MIN 3 V COMPARISON: None. HISTORY: Sprain of calcaneofibular ligament FINDINGS: BONES:No fracture, acute abnormality, or significant arthropathy. SOFT TISSUES:Extensive lateral soft tissue swelling EFFUSION:None visible. OTHER: Negative. IMPRESSION: Lateral soft tissue swelling. No acute fracture Electronically authenticated by: GELN GRAFF Date: 2022-07-03 07:09[facility] Future Appointments Appointment Date:03/20/2023 10:15:00 AM Scheduled Provider:Nona VILLA MD Location:[facility] Appointment Type:URO Office Visit [facility] evaluation + Plan note Future Appointments Appointment Date:12/04/2023 09:45:00 AM Scheduled Provider:Nona VILLA MD Location:[facility] Appointment Type:URO Office Visit Diagnostic Tests Pending * Electrolyte Panel 03/20/23 [facility] evaluation note* Diagnosis NO SHOW- Primary documented in this encounter [facility]* Diagnosis Onset Date Resolution Status Bipolar disorder [facility] Work Phone: Hospital course Narrative No data available for this section [facility] progress note No data available for this section [facility] Summary Purpose Family History No Family [...] or prosecute any alcohol or drug abuse patient.[facility] Reason for Visit (unrecogniz ed section and content) Reason Onset Date Comments No Show 09/04/2022 No show Care Teams (unrecognized sec tion and content) 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 Relationship Specialty Start Date End Date Domingo Das MD [address] [place] [address] Referring Family Medicine 09/01/22 Team Status: Active [...] section and content) DATE CREATED AUTHOR 09/06/2022 [facility] DATE CREATED AUTHOR AUTHOR'S ORGANIZ ATION 02/19/2023 [facility] DATE CREATED AUTHOR AUTHOR'S ORGANIZ ATION 12/06/2023 [facility] DATE CREATED AUTHOR AUTHOR'S ORGANIZ ATION 12/19/2023 [facility] DATE CREATED AUTHOR AUTHOR'S ORGANIZ ATION 04/11/2024 [facility] FOR RECORDS PERTAINING TO PATIENTS [...] BE BASED ON THE PRIMARY CLINICAL RECORDS. [employer] provides no warranty or guarantee of the accuracy or completeness of information in this document.
--- NOTE | 2024-04-21 14:51 | ED_ITS ---
HPI HPI - General Adult General Chief complaint: Abdominal Pain Stated complaint: flank pain Time Seen by Provider: 04/21/24 14:43 Source: patient Mode of arrival: walk-in History of Present Illness HPI narrative: Patient is a 33-year-old female who presents to the emergency department for left flank pain that has been present for 5 days. Patient states she has a history of kidney stones. She states she has not had an obstructing stone for a while . She saw her PCP who placed her on Flomax. She has not had any improvement with this medication. She denies fevers although she has had nausea and vomiting intermittently. She denies urinary symptoms. She has had a previous hysterectomy, no concern for . No other medications taken prior to arrival today. Related Data Home Medications ?Medication ?Instructions ?Recorded ?Confirmed hyoscyamine sulfate 0.125 mg tablet 0.125 mg sublingual Q8H PRN pain 04/20/24 04/21/24 tamsulosin 0.4 mg capsule 0.4 mg PO Q24H 04/20/24 04/21/24 Previous Rx's ?Medication ?Instructions ?Recorded ketorolac 10 mg tablet 10 mg PO TID PRN pain #10 tabs 04/21/24 methocarbamol 750 mg tablet 750 mg PO TID PRN pain #20 tabs 04/21/24 ondansetron 4 mg disintegrating 4 mg PO Q6H PRN nausea and 04/21/24 tablet vomiting #12 tabs Allergies Allergy/AdvReac Type Severity Reaction Status Date / Time No Known Drug Allergies Allergy Verified 04/20/24 22:45 Opioid HPI Opioid Management Most Recent Opioid Data: Last Pain Scale 8 04/21/24 15:05 Last MAR Pain Assessment 04/21/24 15:05 Ur Phencyclidine Scrn Negative (NEGATIVE) 04/08/24 15:00 Review of Systems ROS Constitutional Denies: fever or chills Ears, nose, mouth, and throat Denies: throat pain or nasal congestion Cardiovascular Denies: chest pain Respiratory Denies: shortness of breath Gastrointestinal Reports: abdominal pain, nausea and vomiting; Denies: diarrhea Genitourinary Denies: painful urination or urinary frequency Musculoskeletal Reports: back pain; Denies: neck pain Integumentary/Breast Denies: rash Hematologic/Lymphatic Denies: easy bruising or easy bleeding PFSH PFSH Medical History (Updated 04/21/24 @ 15:43 by VARSHA Benitez) Anxiety and depression ?F41.9 - Anxiety disorder, unspecified (ICD-10) ?F32.A - Depression, unspecified (ICD-10) Kidney stones ?N20.0 - Calculus of kidney (ICD-10) Bipolar disorder ?F31.9 - Bipolar disorder, unspecified (ICD-10) Kidney stones ?N20.0 - Calculus of kidney (ICD-10) Surgical History (Updated 12/29/23 @ 08:54 by Chrissy Montilla) History of ultrasound guided needle biopsy ?Z98.890 - Other specified postprocedural states (ICD-10) H/O local excision of skin lesion ?Z98.890 - Other specified postprocedural states (ICD-10) S/P extracorporeal shock wave therapy (03/2023) ?Z98.890 - Other specified postprocedural states (ICD-10) History of wisdom tooth extraction ?K08.409 - Partial loss of teeth, unspecified cause, unspecified class (ICD- 10) H/O LEEP ?Z98.890 - Other specified postprocedural states (ICD-10) History of endometrial ablation ?Z98.890 - Other specified postprocedural states (ICD-10) S/P cystoscopy ?Z98.890 - Other specified postprocedural states (ICD-10) S/P ureteral stent placement ?Z96.0 - Presence of urogenital implants (ICD-10) H/O ureteroscopy ?Z98.890 - Other specified postprocedural states (ICD-10) History of cholecystectomy ?Z90.49 - Acquired absence of other specified parts of digestive tract (ICD- 10) Family History (Updated 03/30/23 @ 10:56 by Natalee Jules) Other Family history of hypertension Social History Within the past year, how often did you have a drink containing alcohol: monthly or less Smoking status: Never smoker Non-prescribed substance use: denies use 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 Highest level of school completed/degree received: Master's degree Are you now , , , , never or living with a partner: Gender Identity: female Exam Narrative Exam Narrative: Gen.: Awake, alert, in no distress Head: Normocephalic, atraumatic ENT: Moist mucous membranes Respiratory: No respiratory distress, lungs clear bilaterally Cardio: Regular rate and rhythm Gastrointestinal: Abdomen is soft, nondistended and nontender to palpation Back: No CVA tenderness Extremities: Moves extremities equally Psych: Normal mood and affect Neuro: No focal neuro deficit Skin: Warm, dry, intact Constitutional Vital Signs, click to edit/add: Last Vital Signs Temp 98.1 F 04/21/24 14:38 Pulse 82 04/21/24 14:38 Resp 16 04/21/24 14:38 BP 130/96 H 04/21/24 14:38 Pulse Ox 99 04/21/24 14:38 O2 Del Method Room Air 04/21/24 14:38 Course Vital Signs Vital signs: Vital Signs Temperature 98.1 F 04/21/24 14:38 Pulse Rate 82 04/21/24 14:38 Respiratory Rate 16 04/21/24 14:38 Blood Pressure 130/96 H 04/21/24 14:38 Pulse Oximetry 99 04/21/24 14:38 Oxygen Delivery Method Room Air 04/21/24 14:38 Temperature 98.1 F 04/21/24 14:38 Pulse Rate 82 04/21/24 14:38 Respiratory Rate 16 04/21/24 14:38 Blood Pressure 130/96 H 04/21/24 14:38 Pulse Oximetry 99 04/21/24 14:38 Oxygen Delivery Method Room Air 04/21/24 14:38 Medical Decision Making [facility] Narrative Medical decision making narrative: Patient treated with IV fluids, Dilaudid, Toradol, Zofran in the ER. Her vital signs are within normal limits. This patient is well-known to this emergency department for pain complaints. Her lab studies from last night on her visit to this emergency department are improved with improved white blood cell count, normal urine specimen with no blood or infection. Patient also had a CT scan in the emergency department last night, she did not make myself or nursing staff aware that she was seen in this emergency department last night. Her CT scan does not show ureteral stone or hydroureter or hydronephrosis. Patient will be treated for symptoms of back pain with Toradol, Robaxin, Zofran for home. Follow-up with PCP and return to the ER if symptoms change or worsen SHARED APC VISIT, PHYSICIAN ATTESTATION: [id number] I performed a substantive part of the MDM during the patient?s E/M visit. I personally evaluated and examined the patient. I personally made or approved the documented management plan and acknowledge its risk of complications. Medical Records Medical records reviewed: Yes I reviewed the patient's medical records Lab Data Lab results reviewed: Yes I reviewed the patient's lab results Labs: Lab Results 04/21/24 04/21/24 Range/Units 14:45 14:50 WBC 7.0 (4.0-11.0) 10^3/uL RBC 4.74 (4.20-5.40) 10^6/uL Hgb 13.2 (12.0-16.0) g/dL Hct 39.8 (36.0-48.0) % MCV 84.0 (81.0-99.0) fL MCH 27.8 (26.7-34.0) pg MCHC 33.2 (29.9-35.2) g/dL RDW 12.5 (11.0-15.0) % Plt Count 325 (150-450) 10^3/uL MPV 9.7 (9.5-13.5) fL Neut % (Auto) 61.0 (43.0-75.0) % Lymph % (Auto) 29.1 (20.5-60.0) % [place] % (Auto) 8.9 (1.7-12.0) % Eos % (Auto) 0.3 L (0.9-7.0) % Baso % (Auto) 0.6 (0.2-2.0) % Neut # (Auto) 4.3 (1.4-6.5) 10^3/uL Lymph # (Auto) 2.0 (1.2-3.8) 10^3/uL [place] # (Auto) 0.6 (0.3-0.8) 10^3/uL Eos # (Auto) 0.0 (0.0-0.7) 10^3/uL Baso # (Auto) 0.0 (0.0-0.1) 10^3/uL Abs Immat Gran (auto) 0.01 (0.00-0.03) 10^3/uL Imm/Tot Granulo (auto) 0.1 (0.0-0.5) % Sodium 137 (136-145) mmol/L Potassium 3.6 (3.5-5.1) mmol/L Chloride 104 (98-107) mmol/L Carbon Dioxide 27.6 (21.0-32.0) mmol/L Anion Gap 9.0 BUN 9.0 (7.0-18.0) mg/dL Creatinine 0.78 (0.55-1.02) mg/dL Est GFR ( Amer) >60 (>=60) Est GFR (Non-Af Amer) >60 (>=60) BUN/Creatinine Ratio 11.5 Glucose 98 (74-106) mg/dL Lactate 1.0 (0.4-2.0) mmol/L Calcium 9.0 (8.5-10.1) mg/dL Total Bilirubin 0.4 (0.2-1.0) mg/dL AST 20 (15-37) U/L ALT 31 (14-59) U/L Alkaline Phosphatase 64 (46-116) U/L Total Protein 7.7 (6.4-8.2) g/dL Albumin 3.9 (3.4-5.0) g/dL Globulin 3.8 g/dL Albumin/Globulin Ratio 1.0 Urine Color Yellow (YELLOW) Urine Clarity Clear (CLEAR) Urine pH 7.5 (5.0-9.0) Ur Specific [place] 1.020 (1.005-1.025) Urine Protein Negative (NEG/TRACE) mg/dL Urine Glucose (UA) Negative (NEGATIVE) mg/dL Urine Ketones Negative (NEGATIVE) mg/dL Urine Occult Blood Negative (NEGATIVE) Urine Nitrite Negative (NEGATIVE) Urine Bilirubin Negative (NEGATIVE) Urine Urobilinogen 1.0 (0.2-1.0) EU/dL Ur Leukocyte Esterase Negative (NEGATIVE) Discharge Plan Discharge Stand Alone Forms: Portal Instructions Chief Complaint: Abdominal Pain Clinical Impression: Acute left flank pain Patient Disposition: Home, Self-Care Time of Disposition Decision: 15:43 Condition: Good Prescriptions / Home Meds: New ketorolac 10 mg tablet 10 mg PO TID PRN (Reason: pain) Qty: 10 0RF methocarbamol 750 mg tablet 750 mg PO TID PRN (Reason: pain) Qty: 20 0RF ondansetron 4 mg tablet,disintegrating 4 mg PO Q6H PRN (Reason: nausea and vomiting) Qty: 12 0RF No Action tamsulosin 0.4 mg capsule 0.4 mg PO Q24H hyoscyamine sulfate 0.125 mg tablet 0.125 mg sublingual Q8H PRN (Reason: pain) Print Language: Persian Instructions: Flank Pain (ED) Referrals: Ignacio Das MD [Primary Care Provider] - 1 week
[2024-04-21] MEDS: ONDANSETRON PF 4 MG/2 ML VIAL IV (15:01)
[2024-04-21] MEDS: KETOROLAC TROMETHAMINE 30 MG/ML VIAL IVP (15:02)
[2024-04-21] MEDS: 0.9 % SODIUM CHLORIDE 1,000 ML 999 ML IV (15:03)
[2024-04-21 15:04] LABS: Basophils Percent Auto 0.6 % (0.2-2.0); Eosinophils Percent Auto 0.3 % (0.9-7.0); Hematocrit 39.8 % (36.0-48.0); Hemoglobin 13.2 g/dL (12.0-16.0); Immature Granulocytes Abs Auto 0.01 10^3/uL (0.00-0.03); Immature Granulocytes Pct Auto 0.1 % (0.0-0.5); Lymphocytes Percent Auto 29.1 % (20.5-60.0); Mean Corpuscular HGB Conc 33.2 g/dL (29.9-35.2); Mean Corpuscular Hemoglobin 27.8 pg (26.7-34.0); Mean Platelet Volume 9.7 fL (9.5-13.5); Monocytes Absolute Auto 0.6 10^3/uL (0.3-0.8); Monocytes Percent Auto 8.9 % (1.7-12.0); Neutrophils Absolute Auto 4.3 10^3/uL (1.4-6.5); Platelet Count 325 10^3/uL (150-450); Red Blood Count 4.74 10^6/uL (4.20-5.40); Red Cell Distribution Width 12.5 % (11.0-15.0)
[2024-04-21 15:05] LABS: Bilirubin Urine NEGATIVE (NEGATIVE); Blood Urine NEGATIVE (NEGATIVE); Clarity Urine CLEAR (CLEAR); Color Urine YELLOW (YELLOW); Glucose Urine UA NEGATIVE (NEGATIVE); Ketones Urine NEGATIVE (NEGATIVE); Leukocyte Esterase Urine NEGATIVE (NEGATIVE); Nitrite Urine NEGATIVE (NEGATIVE); Protein Urine NEGATIVE (NEG/TRACE); pH Urine 7.5 (5.0-9.0)
[2024-04-21] MEDS: HYDROMORPHONE HCL 1 MG/ML CARTRIDGE IVP (15:05)
[2024-04-21 15:06] LABS: Urine Microscopic Indicated NO
[2024-04-21 15:20] LABS: Alanine Aminotransferase 31 U/L (14-59); Albumin Level 3.9 g/dL (3.4-5.0); Alkaline Phosphatase 64 U/L (46-116); Aspartate Amino Transferase 20 U/L (15-37); BUN Creatinine Ratio 11.5; Bilirubin Total 0.4 mg/dL (0.2-1.0); Carbon Dioxide 27.6 mmol/L (21.0-32.0); Chloride 104 mmol/L (98-107); Estimated GFR (African America >60 (>=60); Estimated GFR (Non-African Ame >60 (>=60); Globulin 3.8 g/dL; Glucose 98 mg/dL (74-106); Potassium 3.6 mmol/L (3.5-5.1); Sodium 137 mmol/L (136-145); Total Protein 7.7 g/dL (6.4-8.2)
[2024-04-21 16:08] VITALS: BP 138/88; PULSE 88; O2SAT 98
== END 2024-04-21 16:09 | disposition home or self-care (01) ==
PROVIDERS: Physician Assistant; Emergency Provider Emergency Medicine Emergency Medical Services; PCP Family Medicine
DX: R10.9 Unspecified abdominal pain (principal); Z87.442 Personal history of urinary calculi; Z90.710 Acquired absence of both cervix and uterus
CPT/HCPCS: 36415; 80053; 81003; 83605; 85025; 96361; 96374; 96375; 99285; J1170; J1885; J2405

== ENCOUNTER 2024-04-22 09:59 | Outpatient (RCR) | payer OTHER, SELFPAY ==
[2024-04-22 10:25] VITALS: BP 126/88; PULSE 67; TEMP 36.8; O2SAT 96
[2024-04-22] MEDS: 0.9 % SODIUM CHLORIDE 2,000 ML 1000 ML IV (10:25)
== END 2024-05-18 23:59 | disposition home or self-care (01) ==
LOC: INF 09:59
PROVIDERS: PCP Family Medicine; Visit Provider Family Medicine
DX: N12 Tubulo-interstitial nephritis, not specified as acute or chronic (principal)

== ENCOUNTER 2024-05-02 23:15 | Emergency (ER) | payer OTHER, SELFPAY ==
[2024-05-02 23:20] VITALS: BP 139/92; PULSE 88; TEMP 36.7; O2SAT 99; BMI 30.6
--- OUTSIDE RECORDS SUMMARY | 2024-05-02 23:24 | XMS_ITS ---
Patient Summarization (C-CDA 2.1 CCD) Created on: May 02, 2024 Diana Barriga : 1990 Sex: Female Author Organization Sample organization Care Team Providers Care Osha Inspector Name Role Phone Domingo Das MD Unavailable [...] Unavailable Nona VILLA Attending Unavailable Nona VILLA R Attending Unavailable VILLANona Attending Unavailable CELIO VAN Attending Unavailable MD Domingo Das Primary Care Provider [phone] MD Arnulfo Aviles Admit Provider MD Arnulfo Aviles Attending Provider [phone] Arnulfo Aviles Admitting Unavailab Arnulfo Forrest Attending Unavailab Domingo Rosen Primary Care Unavailable [place] V Admitting Unavailable [place] V Attending Unavailable Hoy, Domingo M Primary Care Unavailable Encounters Encounter Date Encounter Type Care Provider Facility Start: 04-09-2024 Non-patient / Non-visit MD Vicente Das Work Phone: [facility] Work Phone: Start: 04-08-2024 End: 04-10-2024 Evaluation and management of inpatient MD Domingo Das Work Phone: [facility] [place] [address] Work Phone: Start: 12-29-2023 End: 12-29-2023 ambulatory Glen Graff Facility:[facility] Start: 12-17-2023 End: 12-17-2023 ambulatory CELIO VAN Not Available Start: 12-04-2023 End: 12-05-2023 ambulatory Nona VILLA Facility:[facility] Start: 12-04-2023 End: 12-04-2023 Patient encounter procedure Nona VILLA [facility] Start: 04-09-2023 End: 04-10-2023 ambulatory Nona VILLA Facility:CD:[id number] Start: 03-20-2023 End: 03-21-2023 ambulatory Nona VILLA Facility:[facility] Start: 03-20-2023 End: 03-20-2023 Patient encounter procedure Nona VILLA [facility] Start: 02-16-2023 End: 02-16-[address] DOMINGO DAS . Facility:[facility] Start: 02-02-2023 End: 02-02-[address] DOMINGO DAS . Facility: Start: 12-26-2022 End: 12-27-2022 ambulatory Nona VILLA Facility:[facility] [place] Start: 12-26-2022 End: 12-26-2022 Patient encounter procedure Nona VILLA [facility] Start: 12-16-2022 End: 12-17-[address] NONA VILLA . Facility:[facility] Start: 12-15-2022 End: 12-16-[address] NONA VILLA . Facility:[facility] Start: 11-27-[address] DOMINGO DAS . Facili ty:[facility] Start: 11-07-2022 End: 11-07-[address] DOMINGO DAS . Facility:[facility] Start: 11-04-2022 Encounter for preprocedural cardiovascular examination DR JEFFERSON GIBBS . [facility] Start: 11-04-2022 Encounter for preprocedural laboratory examination DR JEFFERSON GIBBS . [facility] Start: 11-03-2022 End: 11-04-2022 Encounter for preprocedural cardiovascular examination DR DOMINGO DAS . Facility:[facility] Start: 11-03-2022 End: 11-04-[address] DOMINGO DAS . Facility:[facility] Start: 09-20-2022 Encounter for preprocedural laboratory examination DR NONA VILLA . [facility] Start: 09-18-2022 End: 09-18-[address] NONA VILLA . Facility:[facility] Start: 09-16-2022 End: 09-17-[address] NONA VILLA . Facility:[facility] Start: 09-16-2022 End: 09-17-2022 Encounter for preprocedural laboratory examination DR NONA VILLA . Facility:[facility] Start: 09-05-2022 End: 09-05-2022 ambulatory ORA BOND . Facility:[facility] Start: 09-04-2022 End: 09-04-2022 ambulatory DANIEL SANTIAGO Facility:[facility] Start: 09-04-2022 End: 09-04-2022 ambulatory Daniel Santiago INSTRUCTOR [employer]IC [employer]OR IN[employer] Work Phone: Urology Comment on above: NO SHOW (Primary Dx) Start: 09-04-2022 End: 09-04-2022 Telemedicine consultation with patient Daniel Santiago INSTRUCTOR [employer]ATIC [employer].EDITOR INDEX Work Phone: [facility] Start: 08-28-2022 End: 08-29-[address] ERWIN MOORE Facility:[facility] Start: 08-22-2022 End: 08-24-[address] DOMINGO DAS . Facility:[facility] Start: 08-13-2022 End: 08-13-2022 ambulatory ORA BOND . Facility:[facility] Start: 07-31-2022 Encounter for cervic al smear to confirm findings of recent normal smear following initial abnormal smear DR JEFFERSON GIBBS . [facility] Start: 07-30-2022 End: 07-30-[address] DOMINGO DAS . Facility:[facility] Start: 07-30-2022 End: 07-30-2022 Encounter for cervical smear to confirm findings of recent normal smear following initial abnormal smear DR DOMINGO DAS . Facility:[facility] Start: 07-02-2022 End: 07-03-[address] DOMINGO DAS . Facility:[facility] Goals Date Patient Goal Desired Activity /State Immunizations Immunization Date Immunization Notes Care Provider Beata moore 08-01-2019 influenza virus vaccine, unspecified formulation Nona VILLA [facility] 08-09-2018 tetanus toxoid, redu franco diphtheria toxoid, and acellular pertussis vaccine, adsorbed Nona VILLA [facility] 08-08-2018 influenza virus vaccine, unspecified formulation Nona VILLA [facility] 06-19-2004 hepatitis B vaccine, pediatric or pediatric/adolescent dosage Nona VILLA [facility] 03-27-2004 hepatitis B vaccine, pediatric or pediatric/adolescent dosage Nona VILLA [facility] 12-18-2003 hepatitis B vaccine, pediatric or pediatric/adolescent dosage Nona VILLA [facility] 12-18-2003 measles, mumps and rubella virus vaccine Nona VILLA [facility] 04-10-1993 DTaP, unspecified formulation Nona VILLA [facility] 04-10-1993 poliovirus vaccine, unspecified formulation Nona [facility] 12-28-1992 Hib, unspecified formulation Nona [facility] 12-28-1992 measles, mumps and rubella virus vaccine Nona [facility] 03-26-1992 Hib, unspecified formulation Nona [facility] 01-18-1992 Hib, unspecified formulation Nona VILLA [facility] 1990 Hib, unspecified formulation Nona VILLA [facility] Medications Current Medications Medication Drug Class(es) Dates [...] 13, 2022 12:00am August 16, 2022 11:38am Holt (No Known Home Meds) (1 source) Start: 04-08-2024 Holt (No Kn own Home Meds) Active April [...] BID, # 30 tab(s), Refills(s) 3, Pharmacy: [facility]/pharmacy #[id number], 168, cm, 03/20/23 10:32:00 EDT, Height/Length Dosing, 95, kg, 03/20/23 10:32:00 EDT, Weight Dosing Start Date: 06/23/23 Status: Ordered Payers Date Payer Category Payer Self-pay 2021 Medicaid [place] TERM 09/17 [employer] [employer] [id number] 2021-Present [phone] [address] [place] [address] Medicaid [id number] 1990 Unknown [id number] 2.16.840.1.354692.3.579.2.593 1990 Unknown [id number] 2.16.840.1.427973.3.579.2.593 1990 Unknown [id number] 2.16.840.1.013623.3.579.2.593 1991 Unknown [id number] 2.16.840.1.220061.3.579.2.593 1991 Unknown [id number] 2.16.840.1.829871.3.579.2.593 1991 Unknown [id number] 2.16.840.1.898204.3.579.2.593 1991 Unknown [id number] 2.16.840.1.757399.3.579.2.593 1991 Unknown [id number] 2.16.840.1.153771.3.579.2.593 1991 Unknown [id number] 2.16.840.1.263399.3.579.2.593 1991 Unknown [id number] 2.16.840.1.174945.3.579.2.593 1991 Unknown [id number] 2.16.840.1.621901.3.579.2.593 1991 Unknown [id number] 2.16.840.1.464164.3.579.2.593 1991 Unknown [id number] 2.16.840.1.148131.3.579.2.593 1991 Unknown [id number] 2.16.840.1.474477.3.579.2.593 1991 Unknown [id number] 2.16.840.1.550697.3.579.2.593 1991 Unknown [id number] 2.16.840.1.477730.3.579.2.593 1991 Unknown [id number] 2.16.840.1.816340.3.579.2.727 1991 Unknown [id number] 2.16.840.1.760830.3.579.2.727 1991 Unknown [id number] 2.16.840.1.927845.3.579.2.727 1991 Unknown [id number] 2.16.840.1.905930.3.579.2.727 1991 Unknown [id number] 2.16.840.1.684331.3.579.2.1259 1958 Medicaid [id number] 1958 Self-pay [id number] 1959 Unknown [id number] Unknown [id number] 2.16.840.1.119047.3.579.2.531 Unknown [id number] 2.16.840.1.918120.3.579.2.531 Plan of Treatment Date Care Activity Detail Author Start: 04-10-2024 [facility] Start: 04-08-2024 Referral to Hydrostatic Tester [facility] Start: 04-08-2024 Hospital admission [facility] Start: 04-08-2024 [facility] Start: 06-19-2022 Influenza vaccination INFLUENZA (#1) [facility] Start: 10-19-2021 DEPRESSION ASSESSMENT DEPRESSION ASSESSMENT [facility] Start: 2021 HPV TESTING HPV TESTING [facility] Start: 2012 PAP TESTING PAP TESTING [facility] Start: 2010 Urine microalbumin profile DTAP,TDAP,TD (1 - Tdap) [facility] Start: 2009 HEPATITIS C SCREENING HEPATITIS C SCREENING [facility] Start: 2009 HIV SCREENING HIV SCREENING [facility] Start: 03-14-1992 COVID-19 VACCINE (#1) COVID-19 VACCINE (#1) [facility] Start: 1991 HEPATITIS B (1 of 3 - 3-dose series) HEPATITIS B (1 of 3 - 3-dose series) [facility] Patient Education Bipolar Disord er (DC) [facility] [place] Instructions Know your Meds [facility] Work Phone: Patient referral [facility] Work Phone: Problems Active Problems Problem Classification Problem Date [...] Other intermediate (current) drug therapy; Translations: [OTH 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 CURRENT DRUG THERAPY] Onset: 02-18-2023 Episodic Other aftercare (1 source) correction (current) use of oral hypoglycemic drugs; Translations: [CUSTODIAL USE ORAL HYPOGLYCEMIC DX] Onset: 02-18-2023 Episodic [...] LIG LT ANK INIT] Onset: 07-02-2022 Episodic Procedures Date Procedure Procedure Detail Performing Clinician [...] Nona VILLA Start: 05-30-2012 Cholecystectomy Nona VILLA Results Test Name Value Interpretation Reference Range Facility Cholesterol [Mass/volume] in Serum or PlasmaOrdered By: Arnulfo Aviles on 04-09-2024 Cholesterol [Mass/Vol] 150 mg/dL Normal 140-200 [facility] Comment on above: Chol less than 200 m g/dl low riskChol 201-239 mg/dl borderline riskChol 240 mg/dl and greater high risk Result Comment: Chol less than 200 mg/dl low risk Chol 201-239 mg/dl borderline risk Chol 240 mg/dl and greater high risk Performed By: #### L IPID, TSH3 wRFLX, [id number] #### [address] Cholesterol in LDL Calc [Mas s/Vol]Ordered By: Arnulfo Aviles on 04-09-2024 Cholesterol in LDL [Mass/Vol] 90 mg/dL 0-100 [facility] Comment on above: LDL ATP III CLASSIFI CATIONLDL less than 100 mg/dL OptimalLDL 100-129 mg/dL Near or above optimalLDL 130-159 mg/dL Borderline highLDL 160-189 mg/dL HighLDL greater than 189 mg/dL Very high Cholesterol in VLDL Calc [Ma ss/Vol]Ordered By: Arnulfo Aviles on 04-09-2024 Cholesterol in VLDL [Mass/Vol] 16 mg/dL [facility] ECG 12 lead ECGon 04-09-2024 ECG 12 lead ECG [facility] [address] [place] [address] [place] [address] Electrocardiograph Report Signed Patient: Diana Barriga MR#: [id number] : 1990 Acct:[id number] Age/Sex: 33 / F ADM Date: 04/08/24 Loc: Room: [address] [place] [address] Type: ADM IN Attending Dr: Arnulfo Aviles [...] previous ECGs available Confirmed by [facility] ([id number] on 04/09/2024 3:21:42 PM Referred By: Electronically Signed By:NONA CHAWLA MD [facility] Transcribed By: MUS Signed By Lg Chawla MD 04/09/24 1521 Normal [facility] Lipid Panelon 04-09-2024 LDL Cholesterol,Calculated 90 mg/dL Normal 0-100 [facility] Comment on above: Result Comment: LDL ATP III CLASSIFICATION LDL less than 100 mg/dL Optimal LDL 100-129 mg/dL Near or above optimal LDL 130-159 mg/dL Borderline high LDL 160-189 mg/dL High LDL greater than 189 mg/dL Very high Performed By: #### L IPID, TSH3 wRFLX, [id number] #### [facility] [address] [place] [address] [place] Triglyceride w/Reflex 82 mg/dL Normal 0-149 [facility] Comment on above: Result Comment: TRIG ATP III CLASSIFICATION TRIG less than 150 mg/dL Normal TRIG 150-199 mg/dL Borderline high TRIG 200-500 mg/dL High TRIG greater than 500 mg/dL Very high Standard traceable to the Center for Disease Conrtrol and Prevention (CDC) test method. Performed By: #### L IPID, TSH3 wRFLX, [id number] #### [address] VLDL CHOLESTEROL 16 mg/dL Normal [facility] Comment on above: Performed By: #### L IPID, TSH3 wRFLX, [id number] #### [address] Serum or plasma high density lipoprotein (HDL) cholesterol measurementOrdered By: Arnulfo Aviles on 04-09-2024 Cholesterol in HDL [Mass/Vol] 44 mg/dL Normal 23-92 [facility] Comment on above: HDL CHOL ATP-III CLA SSIFICATION Cardiovascular RiskHDL > or equal to 60 mg/dL LOWHDL < 40 mg/dL HIGH Result Comment: HDL CHOL ATP-III CLASSIFICATION Cardiovascular Risk HDL > or equal to 60 mg/dL LOW HDL < 40 mg/dL HIGH Performed By: #### L IPID, TSH3 wRFLX, [id number] #### [address] Serum or plasma total choles terol/high density lipoprotein (HDL) cholesterol mass ratOrdered By: Arnulfo Aviles on 04-09-2024 Cholesterol.total/Chol esterol in HDL [Mass ratio] 3.4 {ratio} Normal <5.0 [facility] Comment on above: Performed By: #### L IPID, TSH3 wRFLX, [id number] #### [address] Thyroid Stim Hormone w/Rflxo n 04-09-2024 Thyroid Stim Hormone w/Rflx 2.01 u[iU]/mL Normal 0.45-5.33 [facility] Comment on above: Performed By: #### L IPID, TSH3 wRFLX, [id number] #### [address] Thyrotropin [Units/volume] i n Serum or PlasmaOrdered By: Arnulfo Aviles on 04-09-2024 TSH Qn 2.01 m[IU]/L 0.45-5.33 [facility] Triglyceride [Mass/volume] i n Serum or PlasmaOrdered By: Arnulfo Aviles on 04-09-2024 Triglyceride [Mass/Vol] 82 mg/dL 0-149 [facility] Comment on above: TRIG ATP III CLASSIF ICATIONTRIG less than 150 mg/dL NormalTRIG 150-199 mg/dL Borderline highTRIG 200-500 mg/dL High TRIG greater than 500 mg/dL Very highStandard traceable to the Center for Disease Conrtrol and Prevention (CDC) test method. Vitamin D 25 Hydroxy Totalon 04-09-2024 Vitamin D 25 Hydroxy Total 26.2 ng/mL Low 30-100 [facility] Comment on above: Result Comment: THA MIN D STATUS 25(OH)VITAMIN D RANGE (ng/mL) Deficient <20 Insufficient 20 to <30 Sufficient 30 to 100 Reference: Jennifer Tiwari, Mady MARTI, et al. Evaluation,treatment, and prevention of vitamin D deficiency; an Endocrine Society clinical practice guideline. JCEM. 2010; 96(7):1911-30. PERFORMED BY: [place] [address] PATHOLOGIST INSURANCE VERIFY REP AB ALCANTARA M.D. Performed By: #### L IPID, TSH3 wRFLX, [id number] #### [address] Vitamin D+Metabolites [Mass/ volume] in Serum or PlasmaOrdered By: Arnulfo Aviles on 04-09-2024 Vitamin D+Metabolites [Mass/Vol] 26.2 ng/mL 30-100 [facility] Comment on above: VITAMIN D STATUS 25( OH)VITAMIN D RANGE (ng/mL) Deficient <20 Insufficient 20 to <30Sufficient 30 to 100Reference: Jennifer Tiwari, Mady MARTI, et al. Evaluation,treatment, and prevention of vitamin D deficiency; an Endocrine Society clinical practice guideline. JCEM. 2010; 96(7):1911-30. Axel 12-29-2023 L Specimen: [id number] Received: 12/29/23 Status: DAQUAN Moon Num: [id number] Spec Type: Surgical Subm Dr: Glen Graff MD Tissues: A BREAST CORE NO CALCS (LT BREAST 6:00) Procedures: PAS - LGRN, HE/2, Gross/Micro L4, AE1-AE3, CD68 Age/ Patient Sex Location Account Attending Physician Diana Barriga 33/F [place] [id number] Glen Graff MD SPEC NUM: [id number] RECD: 12/29/23 STATUS: DAQUAN MOON NUM: [id number] KELBY: 12/29/23- SUBM DR: Glen Graff MD ENTERED: 12/29/23 [facility] DR: Miles Celeste SPEC TYPE: Surgical DEPT: MAX LEGGETT ORDERED: [...] AM 12/29/2023, time out of ---- Specimen: [id number] Received: 12/29/23 Status: DAQUAN Moon Num: [id number] Spec Type: Surgical Subm Dr: Glen Graff MD Tissues: A BREAST CORE NO CALCS (LT BREAST 6:00) Procedures: PAS - MAXN, HE/2, Gross/Micro L4, AE1-AE3, CD68 ---- Patient: Diana Barriga [id number] (Continued) ---- Specimen: [id number] Received: 12/29/23 (Continued) Gross Description (Continued) Signed (signature on file) Swathi Dumas MD 12/30/23 1834 ---- Specimen: [id number] Received: 12/29/23 Status: DAQUAN Moon Num: [id number] Spec Type: Surgical Subm Dr: Glen Graff MD Tissues: A BREAST CORE NO CALCS (LT BREAST 6:00) Procedures: FIONA - ELLIS, HE/2, Gross/Micro L4, AE1-AE3, CD68 ---- Patient: Diana Barriga [id number] (Continued) ---- Specimen: [id number] Received: 12/29/23-1411 (Continued) Gross Description (Continued) formalin: 6 PM 12/29/2023. Cold Ischemia and Fixation Time meets the requirements specified in the latest version of the ASCO/CAP guidelines: Yes. Cold Ischemic Time: 0.03 Formalin Fixation Time: 9.85 CPT Codes 01884 [id number] [id number] ---- ---- Specimen: [id number] Received: 12/29/23 Status: DAQUAN Moon Num: [id number] Spec Type: Surgical Subm Dr: Glen Graff MD Tissues: A BREAST CORE NO CALCS (LT BREAST 6:00) Procedures: PAS - LGRN, HE/2, Gross/Micro L4, AE1-AE3, CD68 ---- Patient: Diana Barriga [id number] (Continued) ---- Signed (signature on file) Swathi Dumas MD 12/30/231833 Normal [facility] Patient Letter FTon 2023 Patient Letter [facility] December 04, 2023 DIANA [address]ARR[address] [place] [id number] : 1990 Dear Diana, You missed your [...] [facility] [address], [place] [address] [facility] Lab Reportson 06-05-2023 Lab Reports [id number] 0CD:127 [facility] Reminderson 04-24-2023 Reminders - From: Whitney [...] pt with the results. duplicate message [facility] Operative Reporton Operative Report [id number]#1.00 CD:127 [facility] RAD - MISCon 04-10-2023 RAD - MISC [id number]#1.0 0CD:127 [facility] Lab Reportson 04-06-2023 Lab Reports [id number]#1.0 0CD:127 [facility] Lab Reports [id number]#1.0 0CD:127 [facility] Lab Reportson 03-23-2023 Lab Reports [id number]#1.0 0CD:127 [facility] Lab Reports [id number] 0CD:127 Normal [facility] Lab Reports [id number]#1.0 0CD:127 Normal [facility] RAD - CT Reporton 03-23-2023 RAD - CT Report [id number] 0CD:127 Normal [facility] RAD - CT Report [id number]#1.0 0CD:127 Normal [facility] Ambulatory Visit Summaryon 0 03-20-2023 Ambulatory [...] Where: [facility] [address] [place] [address]- Medications What When Instructions Unchanged olanzapine-samidorphan (Lybalvi [...] ? 8 oz (237 mL) of milk, envsarx-ezbjqwkvwiin-b airy milk, and calcium-fortifiedfruit juice. Calcium-fortified means [...] of b (more content not included)... [facility] Consent for Procedure/Surger yon 03-20-2023 Consent for Procedure/Surgery [id number] 0CD:127 [facility] Patient Educationon 03-20-20 23 Patient Education [...] ? 8 oz (237 mL) of milk, swpqrur-bbtivabxlhgi-q airy milk, and calcium-fortifiedfruit juice. Calcium-fortified means [...] Spinach (cooked), rhubarb, beets, sweet potatoes, and Burkinan chard. ? Peanuts. ? Potato chips, german fries, and baked potatoes with skin on. ? Nuts and nut products. ? Chocolate. ? If you regularly take a diuretic medicine, make sure to eat at least 1 or 2 servings of fruits or vegetables that are high in potassium each day. These include: ? Avocado. ? Banana. ? [place], prune, carrot, or tomato juice. ? Baked [...] fish oil, or vitamin B6. ? Take aprt-xsa-vpasury and prescription medicines only as told by your health care provider. These include supplements. What foods should I limit? Limit your in (more content not included)... Normal [place] [facility] Urology Office/Clinic Noteon 03-20-2023 Urology Office/Clinic [...] Lt kidney pain. Did got to the [place] ER. DX'd & treated for UTI. (NEG [...] L. Ox slightly elevated. Pt presented to [facility] ER on 03/06/23 due to L [...] mg qd. SEs discussed. Rx sent to [facility]. -Electrolyte panel 4 weeks to the day [...] Turner, URL [facility] [address] [place] [address]- Additional Instructions: schedule R ESWL Patient Education [...] kidney s (more content not included)... Normal [facility] Comment on above: Result Comment: Elec tronically Signed By: Nona VILLA MD\.br\Date and Time Signed: 03/20/23 11:30 EDT\.br\Electronically Co-Signed By: Whitney Collier\.br\Date and Time Co-Signed: 03/20/23 11:28 EDT CBC AUTO DIFFon 02-16-2023 BASO # 0.1 103/ul Normal 0.0-0.1 [facility] Comment on above: Performed By: #### U KJ 24 #### [facility] [address] [address] [address] Ramses Dumas Basophils/100 WBC (Bld) 0.5 % Normal 0.2-2.0 [facility] Comment on above: Performed By: #### U KJ 24 #### [facility] [address] [place] [address] Dr. Ramses Dumas EO # 0.0 103/ul Normal 0.0-0.7 [facility] Comment on above: Performed By: #### U KJ 24 #### [facility] [address] [place] [address] Dr. Ramses Dumas Eosinophils/100 WBC (Bld) 0.4 % Critically low 0.9-7.0 [facility] Comment on above: Performed By: #### U KJ 24 #### [facility] [address] [place] [address] Dr. Ramses Dumas Erythrocyte distribution width (RBC) [Ratio] 13.7 % Normal 11.0-15.0 [facility] Comment on above: Performed By: #### U KJ 24 #### [facility] [address] [place] [address] Dr. Ramses Dumas Hematocrit (Bld) [Volume fraction] 45.1 % Normal 36.0-48.0 [facility] Comment on above: Performed By: #### U KJ 24 #### [facility] [address] [place] [address] Dr. Ramses Dumas Hemoglobin (Bld) [Mass/Vol] 14.3 g/dL Normal 12.0-16.0 [facility] Comment on above: Performed By: #### U KJ 24 #### [facility] [address] [place] [address] Dr. Ramses Dumas IG # 0.02 10e3/ul Normal 0.00-0.03 [facility] Comment on above: Performed By: #### U KJ 24 #### [facility] [address] [place] [address] Dr. Ramses Dumas IG % 0.2 % Normal 0.0-0.5 [facility] Comment on above: Performed By: #### U KJ 24 #### [facility] [address] [place] [address] Dr. Ramses Dumas LYMPH # 2.5 103/ul Normal 1.2-3.8 [facility] Comment on above: Performed By: #### U KJ 24 #### [facility] [address] [place] [address] Dr. Ramses Dumas Lymphocytes/100 WBC (Bld) 26.4 % Normal 20.5-60.0 [facility] Comment on above: Performed By: #### U KJ 24 #### [facility] [address] [place] [address] Dr. Ramses Dumas MANUAL DIFF REQ NO Normal [facility] Comment on above: Performed By: #### U KJ 24 #### [facility] [address] [place] [address] Dr. Ramsse Dumas MCH (RBC) [Entitic mass] 25.6 pg Critically low 26.7-34.0 [facility] Comment on above: Performed By: #### U KJ 24 #### [facility] [address] [place] [address] Dr. Ramses Dumas MCHC (RBC) [Mass/Vol] 31.7 g/dL Normal 29.9-35.2 [facility] Comment on above: Performed By: #### U KJ 24 #### [facility] [address] [place] [address] Dr. Ramses Dumas MCV (RBC) [Entitic vol] 80.7 fL Critically low 81.0-99.0 [facility] Comment on above: Performed By: #### U KJ 24 #### [facility] [address] [place] [address] Dr. Ramses Dumas MONO # 0.7 103/ul Normal 0.3-0.8 [facility] Comment on above: Performed By: #### U KJ 24 #### [facility] [address] [place] [address] Dr. Ramses Dumas Monocytes/100 WBC (Bld) 7.6 % Normal 1.7-12.0 [facility] Comment on above: Performed By: #### U KJ 24 #### [facility] [address] [place] [address] Dr. Ramses Dumas NEUT # 6.1 103/ul Normal 1.4-6.5 [facility] Comment on above: Performed By: #### U KJ 24 #### [facility] [address] [place] [address] Dr. Ramses Dumas Neutrophils/100 WBC (Bld) 64.9 % Normal 43.0-75.0 [facility] Comment on above: Performed By: #### U KJ 24 #### [facility] [address] [place] [address] Dr. Ramses Dumas Platelet mean volume (Bld) [Entitic vol] 11.0 fL Normal 9.5-13.5 [facility] Comment on above: Performed By: #### U KJ 24 #### [facility] [address] [place] [address] Dr. Ramses Dumas PLT 270 103/ul Normal 150-450 [facility] Comment on above: Performed By: #### U KJ 24 #### [facility] [address] [place] [address] Dr. Ramses Dumas RBC 5.59 106/ul Critically high 4.20-5.40 [facility] Comment on above: Performed By: #### U KJ 24 #### [facility] [address] [place] [address] Dr. Ramses Dumas WBC 9.4 103/ul Normal 4.0-11.0 [facility] Comment on above: Performed By: #### U KJ 24 #### [facility] [address] [place] [address] ABD/PELV W CONon [...] FARTUN NOVOA Date: 2023-02-16 18:21 Normal [facility] ER URINE PROFILEon 3 Bilirubin Ql (U) SMALL Abnormal NEGATIVE [facility] Comment on above: Performed By: #### C MP #### [facility] [address] [place] [address] Dr. Ramses Dumas Clarity (U) CLEAR Normal CLEAR [facility] Comment on above: Performed By: #### C MP #### [facility] [address] [place] [address] Dr. Ramses Dumas Color (U) YELLOW Normal YELLOW [facility] Comment on above: Performed By: #### C MP #### [facility] [address] [place] [address] Dr. Ramses DELEON A micrscopic examination will be performed if indicated. Normal [facility] Comment on above: Performed By: #### C MP #### [facility] [address] [address] [address] Ramses Dumas Glucose Ql (U) Negative Normal NEGATIVE [facility] Comment on above: Performed By: #### C MP #### [facility] [address] [place] [address] Dr. Ramses Dumas Hemoglobin Ql (U) Negative Normal NEGATIVE [facility] Comment on above: Performed By: #### C MP #### [facility] [address] [place] [address] Dr. Ramses Dumas Ketones Ql (U) 40 mg/dl Abnormal NEGATIVE [facility] Comment on above: Performed By: #### C MP #### [facility] [address] [place] [address] Dr. Ramses Dumas LEUKOCYTES SMALL Abnormal NEGATIVE [facility] Comment on above: Performed By: #### C MP #### [facility] [address] [place] [address] Dr. Ramses Dumas Nitrite Ql (U) Negative Normal NEGATIVE [facility] Comment on above: Performed By: #### C MP #### [facility] [address] [place] [address] Dr. Ramses Dumas pH (U) 7.0 [pH] Normal 5-9 [facility] Comment on above: Performed By: #### C MP #### [facility] [address] [place] [address] Dr. Ramses Dumas Protein (U) [Mass/Vol] 30 mg/dL Abnormal NEGAT CHRIS/ TRACE [facility] Comment on above: Performed By: #### C MP #### [facility] [address] [place] [address] Dr. Ramses Dumas SPEC GRAVITY 1.020 Normal 1.005-<=1.[address] [facility] Comment on above: Performed By: #### C MP #### [facility] [address] [place] [address] Dr. Ramses Dumas UR MICRO IND INDICATED Normal [facility] Comment on above: Performed By: #### C MP #### [facility] [address] [place] [address] Dr. Ramses Dumas Urobilinogen Qn (U) 4 {Lucero'U}/dL Abnormal 0.2 - 1.0 [facility] Comment on above: Performed By: #### C MP #### [facility] [address] [place] [address] Dr. Ramses Dumas LIPASEon 02-16-2023 Lipase [Catalytic activity/Vol] 67.0 U/L Critically low 73.0-393.0 [facility] Comment on above: Performed By: #### U RCX #### [facility] [address] [address] [address] Ramses Dumas LIVER PROFILEon 02-16-2023 Albumin [Mass/Vol] 4.1 g/dL Normal 3.4-5.0 [facility] Comment on above: Performed By: #### U RCX #### [facility] [address] [address] [address] Ramses Dumas Albumin/Globulin [Mass ratio] 1.0 {ratio} Normal [facility] Comment on above: Performed By: #### U RCX #### [facility] [address] [place] [address] Dr. Ramses Dumas ALP [Catalytic activity/Vol] 85 U/L Normal 46-116 [facility] Comment on above: Performed By: #### U RCX #### [facility] [address] [place] [address] Dr. Ramses Dumas ALT [Catalytic activity/Vol] 61 U/L Critically high 14-59 [facility] Comment on above: Performed By: #### U RCX #### [facility] [address] [place] [address] Dr. Ramses Dumas AST [Catalytic activity/Vol] 43 U/L Critically high 15-37 [facility] Comment on above: Performed By: #### U RCX #### [facility] [address] [place] [address] Dr. Ramses Dumas BILI, CONJUGATED 0.1 mg/dL Normal 0.0-0.2 [facility] Comment on above: Performed By: #### U RCX #### [facility] [address] [place] [address] Dr. Ramses Dumas Bilirubin [Mass/Vol] 0.7 mg/dL Normal 0.2-1.0 [facility] Comment on above: Performed By: #### U RCX #### [facility] [address] [place] [address] Dr. Ramses Dumas Globulin (S) [Mass/Vol] 4.2 g/dL Normal [facility] Comment on above: Performed By: #### U RCX #### [facility] [address] [address] [address] Ramses Dumas Protein [Mass/Vol] 8.3 g/dL Critically high 6.4-8.2 [facility] Comment on above: Performed By: #### U RCX #### [facility] [address] [address] [address] Ramses Dumas URon 02-16-2023 , QUAL Negative Normal NEGATIVE [facility] Comment on above: Performed By: #### C MP #### [facility] [address] [place] [address] Dr. Ramses Dumas PROF CHEM 8 (BAS METB)on Anion gap [Moles/Vol] 14.2 mmol/L Normal [facility] Comment on above: Performed By: #### U RCX #### [facility] [address] [place] [address] Dr. Ramses Dumas Calcium [Mass/Vol] 9.5 mg/dL Normal 8.5-10.1 [facility] Comment on above: Performed By: #### U RCX #### [facility] [address] [place] [address] Dr. Ramses Dumas Chloride [Moles/Vol] 102 mmol/L Normal 98-107 [facility] Comment on above: Performed By: #### U RCX #### [facility] [address] [place] [address] Dr. Ramses Dumas CO2 [Moles/Vol] 27.5 mmol/L Normal 21.0-32.0 [facility] Comment on above: Performed By: #### U RCX #### [facility] [address] [place] [address] Dr. Ramses Dumas Creatinine [Mass/Vol] 0.71 mg/dL Normal 0.55-1.02 [facility] Comment on above: Performed By: #### U RCX #### [facility] [address] [place] [address] Dr. Ramses Dumas EGFR-AF MARSHALLESE >60 Normal >=60 [facility] Comment on above: Performed By: #### U RCX #### [facility] [address] [address] [address] Ramses Dumas EGFR-NON AF MARSHALLESE >60 Normal >=60 [facility] Comment on above: Performed By: #### U RCX #### [facility] [address] [address] [address] Ramses Dumas Glucose [Mass/Vol] 90 mg/dL Normal 74-106 [facility] Comment on above: Performed By: #### U RCX #### [facility] [address] [address] [address] Ramses Dumas Potassium [Moles/Vol] 3.7 mmol/L Normal 3.5-5.1 [facility] Comment on above: Performed By: #### U RCX #### [facility] [address] [place] [address] Dr. Ramses Dumas Sodium [Moles/Vol] 140 mmol/L Normal 136-145 [facility] Comment on above: Performed By: #### U RCX #### [facility] [address] [address] [address] Ramses Dumas Urea nitrogen [Mass/Vol] 6.0 mg/dL Critically low 7.0-18.0 [facility] Comment on above: Performed By: #### U RCX #### [facility] [address] [address] [address] Ramses Dumas Urea nitrogen/Creatinine [Mass ratio] 8.5 mg/mg Normal [facility] Comment on above: Performed By: #### U RCX #### [facility] [address] [address] [address] Ramses Dumas URINE MICROSCOPIC ONLYon BACTERIA NONE SEEN Normal NONE SEEN [facility] Comment on above: Performed By: #### U KJ 24 #### [facility] [address] [address] [address] Ramses Dumas Bacteria identified Cx Nom (U) NOT INDICATED Normal [facility] Comment on above: Performed By: #### U KJ 24 #### [facility] [address] [place] [address] Dr. Ramses Dumas CAST NONE SEEN Normal NONE SEEN [facility] Comment on above: Performed By: #### U KJ 24 #### [facility] [address] [place] [address] Dr. Ramses Dumas Crystals LM Nom (Urine sed) NONE SEEN Normal NONE SEEN [facility] Comment on above: Performed By: #### U KJ 24 #### [facility] [address] [place] [address] Dr. Ramses Dumas Epithelial cells LM Ql (Urine sed) FEW Abnormal NONE SEEN /RARE [facility] Comment on above: Performed By: #### U KJ 24 #### [facility] [address] [place] [address] Dr. Ramses Dumas MUCOUS SMALL Abnormal NONE SEEN [facility] Comment on above: Performed By: #### U KJ 24 #### [facility] [address] [place] [address] Dr. Ramses Dumas RBC NONE SEEN Abnormal 0-2 [facility] Comment on above: Performed By: #### U KJ 24 #### [facility] [address] [place] [address] Dr. Ramses Dumas WBC 0-2 Abnormal NONE SEEN [facility] Comment on above: Performed By: #### U KJ 24 #### [facility] [address] [place] [address] Dr. Ramses Dumas PAP ACOG PANEL 2: 30 to 65on 02-10-2023 . . Normal [facility] Comment on above: Result Comment: Perf ormed at: WB Performed By: #### U RCX #### [facility] [address] [place] [address] Dr. Ramses Dumas Age Gdln ACOG Testing 30-[address] [facility] Comment on above: Performed By: #### U RCX #### [facility] [address] [place] [address] Dr. Ramses Dumas DIAGNOSIS: Comment Normal [facility] Comment on above: Result Comment: NEGA TIVE FOR INTRAEPITHELIAL LESION OR MALIGNANCY. REACTIVE CELLULAR CHANGES AND/OR REPAIR ARE PRESENT. Performed at: WB Performed By: #### U RCX #### [facility] [address] [address] [address] Ramses Dumas Electronically signed by: Comment Normal [facility] Comment on above: Result Comment: Chelsey Boston MD, Pathologist Performed at: WB Performed By: #### U RCX #### [facility] [address] [place] [address] Dr. Ramses Dumas HPV Aptima Negative Normal Negative [facility] Comment on above: Result Comment: This nucleic acid amplification test detects fourteen high-risk HPV types (16,18,31,33,35,39,45,51,52,56,58,59,66,68) without differentiation. Performed at: =G Performed By: #### U RCX #### [facility] [address] [place] [address] Dr. Ramses Dumas HPV Genotype Reflex Comment Normal [facility] Comment on above: Result Comment: Crit eria not met, HPV Genotype not performed. Performed at: WB Performed By: #### U RCX #### [facility] [address] [place] [address] Dr. Ramses Dumas Methodology: Comment Normal [facility] Comment on above: Result Comment: This liquid based ThinPrep(R) pap test was screened with the use of an image guided system. Performed at: WB Performed By: #### U RCX #### [facility] [address] [place] [address] Dr. Ramses Dumas Note: Comment Normal [facility] Comment on above: Result Comment: The [...] WB Performed By: #### U RCX #### [facility] [address] [place] [address] Dr. Ramses Dumas Performed by: Comment Normal [facility] Comment on above: Result Comment: Cuca Briceno, Creeler (ASCP) Performed at: WB Performed By: #### U RCX #### [facility] [address] [address] [address] Ramses Dumas Specimen adequacy: Comment Normal [facility] Comment on above: Result Comment: Sati sfactory for evaluation. Endocervical and/or squamous metaplastic cells (endocervical component) are present. Performed at: WB Performed By: #### U RCX #### [facility] [address] [place] [address] Dr. Ramses Dumas Lab Reportson 12-29-2022 Lab Reports [id number] 0CD:127 Normal [facility] RAD - MISCon 12-21-2022 RAD MISC [id number] 0CD:127 Normal [facility] OXALATE 24HR URINEon 023 Oxalates, Urine 44 mg/L Normal Undefined [facility] Comment on above: Performed By: #### U KJ 24 #### [facility] [address] [place] [address] Dr. Ramses Dumas Oxalates, Urine 24hr 44 mg/24 hr Critically high 4- [facility] Comment on above: Performed By: #### U KJ 24 #### [facility] [address] [place] [address] Dr. Ramses Dumas CITRATE URINE 24HRon 023 Citric Acid, U, 24hr 658 mg/24 hr Normal 320-1240 [facility] Comment on above: Result Comment: This test was developed and its performance characteristics determined by [facility]. It has not been cleared or approved by the Food and Drug Administration. Performed By: #### C ITRATU #### [facility] [address] [place] [address] Dr. Ramses Dumas Citric Acid, Urine 658 mg/L Normal Undefined [facility] Comment on above: Performed By: #### C ITRATU #### [facility] [address] [place] [address] Dr. Ramses Dumas MAGNESIUM 24HR URINEon 12-17 Magnesium 24hr Urine 119.0 mg/24 hr Normal 12.0-293.0 [facility] Comment on above: Performed By: #### U RCX #### [facility] [address] [address] [address] Ramses Dumas Magnesium UR 11.9 mg/dL Normal Not Estab. [facility] Comment on above: Performed By: #### U RCX #### [facility] [address] [address] [address] Ramses Dumas PHOSPHORUS 24HR URINEon Phosphorus, Urine 81.4 mg/dL Normal Not Estab. [facility] Comment on above: Performed By: #### B LDCX2 #### [facility] [address] [place] [address] Dr. Ramses Dumas Phosphorus, Urine 24hr 814 mg/24 hr Normal 261-1078 [facility] Comment on above: Performed By: #### B LDCX2 #### [facility] [address] [place] [address] Dr. Ramses Dumas PTH INTACTon 12-17-2022 PTH, Intact 46 pg/mL Normal 15-65 [facility] Comment on above: Performed By: #### U RCX #### [facility] [address] [place] [address] Dr. Ramses Dumas URIC ACID 24 HR URINEon Uric Acid, Urine 69.9 mg/dL Normal Not Estab. [facility] Comment on above: Performed By: #### U KJ 24 #### [facility] [address] [address] [address] Ramses Dumas Uric Acid, Urine 24hr 699.0 mg/24 hr Normal 173.7-902. 1 [facility] Comment on above: Performed By: #### U KJ 24 #### [facility] [address] [place] [address] Dr. Ramses Dumas BUNon 12-16-2022 Urea nitrogen [Mass/Vol] 7.0 mg/dL Normal 7.0-18.0 [facility] Comment on above: Performed By: #### C BC #### [facility] [address] [place] [address] Dr. Ramses Dumas CALCIUMon 12-16-2022 Calcium [Mass/Vol] 8.8 mg/dL Normal 8.5-10.1 [facility] Comment on above: Performed By: #### C BC #### [facility] [address] [place] [address] Dr. Ramses Dumas CALCIUM 24 HR URINEon 2022 CALC, 24 HR UR 295.0 mg/24 hr Normal 100.0-300.0 [facility] Comment on above: Performed By: #### B LDCX2 #### [facility] [address] [place] [address] Dr. Ramses Dumas UR CALCIUM 29.5 mg/dL Critically high 5.1-21.0 [facility] Comment on above: Performed By: #### B LDCX2 #### [facility] [address] [place] [address] Dr. Ramses Dumas CHLORIDEon 12-16-2022 Chloride [Moles/Vol] 105 mmol/L Normal 98-107 [facility] Comment on above: Performed By: #### C BC #### [facility] [address] [place] [address] Dr. Ramses Dumas CO2on 12-16-2022 CO2 [Moles/Vol] 26.4 mmol/L Normal 21.0-32.0 [facility] Comment on above: Performed By: #### C MP #### [facility] [address] [place] [address] Dr. Ramses Dumas CREA 24 HR URINEon 3 CREA, 24 HR UR 2337.30 mg/24 hr Critically high 800.00 -1,[address] [facility] Comment on above: Performed By: #### C VDTBH #### [facility] [address] [place] [address] Dr. Ramses Dumas URINE CREAT 233.73 mg/dL Normal 20.00-300.[address] [facility] Comment on above: Performed By: #### C VDTBH #### [facility] [address] [address] [address] Ramses Dumas CREATININEon 12-16-2022 Creatinine [Mass/Vol] 0.70 mg/dL Normal 0.55-1.02 [facility] Comment on above: Performed By: #### C MP #### [facility] [address] [address] [address] Ramses Dumas EGFR-AF MARSHALLESE >60 Normal >=60 [facility] Comment on above: Performed By: #### C MP #### [facility] [address] [address] [address] Ramses Dumas EGFR-NON AF MARSHALLESE >60 Normal >=60 [facility] Comment on above: Performed By: #### C MP #### [facility] [address] [address] [address] Ramses Dumas NAon 12-16-2022 Sodium [Moles/Vol] 139 mmol/L Normal 136-145 [facility] Comment on above: Performed By: #### C MP #### [facility] [address] [address] [address] Ramses Dumas POTASSIUMon 12-16-2022 Potassium [Moles/Vol] 4.0 mmol/L Normal 3.5-5.1 [facility] Comment on above: Performed By: #### C MP #### [facility] [address] [address] [address] Ramses Dumas SODIUM 24 HR URINEon 023 NA, 24 HR UR 193 mmol/24 hr Normal 40-220 [facility] Comment on above: Performed By: #### C VDTBH #### [facility] [address] [address] [address] Ramses Dumas Sodium (U) [Moles/Vol] 193 mmol/L Critically high 30-90 [facility] Comment on above: Performed By: #### C VDTBH #### [facility] [address] [address] [address] Ramses Dumas UR TOT VOL 1000 ml/24 HR Normal [facility] Comment on above: Performed By: #### C VDTBH #### [facility] [address] [place] [address] Dr. Ramses Dumas Performed By: #### B LDCX2 #### [facility] [address] [place] [address] Dr. Ramses Dumas URIC ACID SERUMon 12-16-2022 Urate [Mass/Vol] 5.6 mg/dL Normal 2.6-6.0 [facility] Comment on above: Performed By: #### C MP #### [facility] [address] [place] [address] Dr. Ramses Dumas XR KUB 1 VIEWon [...] JENNIFER GATES Date: 2022-12-15 08:26 Normal [facility] CBC AUTO DIFFon 11-07-2022 BASO # 0.0 103/ul Normal 0.0-0.1 [facility] Comment on above: Performed By: #### U RCX #### [facility] [address] [place] [address] Dr. Ramses Dumas Basophils/100 WBC (Bld) 0.7 % Normal 0.2-2.0 [facility] Comment on above: Performed By: #### U RCX #### [facility] [address] [place] [address] Dr. Ramses Dumas EO # 0.1 103/ul Normal 0.0-0.7 [facility] Comment on above: Performed By: #### U RCX #### [facility] [address] [place] [address] Dr. Ramses Dumas Eosinophils/100 WBC (Bld) 1.9 % Normal 0.9-7.0 [facility] Comment on above: Performed By: #### U RCX #### [facility] [address] [place] [address] Dr. Ramses Dumas Erythrocyte distribution width (RBC) [Ratio] 13.6 % Normal 11.0-15.0 [facility] Comment on above: Performed By: #### U RCX #### [facility] [address] [place] [address] Dr. Ramses Dumas Hematocrit (Bld) [Volume fraction] 37.3 % Normal 36.0-48.0 [facility] Comment on above: Performed By: #### U RCX #### [facility] [address] [place] [address] Dr. Ramses Dumas Hemoglobin (Bld) [Mass/Vol] 12.2 g/dL Normal 12.0-16.0 [facility] Comment on above: Performed By: #### U RCX #### [facility] [address] [place] [address] Dr. Ramses Dumas IG # 0.02 10e3/ul Normal 0.00-0.03 [facility] Comment on above: Performed By: #### U RCX #### [facility] [address] [place] [address] Dr. Ramses Dumas IG % 0.3 % Normal 0.0-0.5 [facility] Comment on above: Performed By: #### U RCX #### [facility] [address] [place] [address] Dr. Ramses Dumas LYMPH # 2.3 103/ul Normal 1.2-3.8 [facility] Comment on above: Performed By: #### U RCX #### [facility] [address] [place] [address] Dr. Ramses Dumas Lymphocytes/100 WBC (Bld) 39.6 % Normal 20.5-60.0 [facility] Comment on above: Performed By: #### U RCX #### [facility] [address] [address] [address] Ramses Dumas MANUAL DIFF REQ NO Normal The [facility] Comment on above: Performed By: #### U RCX #### [facility] [address] [place] [address] Dr. Ramses Dumas MCH (RBC) [Entitic mass] 26.4 pg Critically low 26.7-34.0 [facility] Comment on above: Performed By: #### U RCX #### [facility] [address] [place] [address] Dr. Ramses Dumas MCHC (RBC) [Mass/Vol] 32.7 g/dL Normal 29.9-35.2 [facility] Comment on above: Performed By: #### U RCX #### [facility] [address] [place] [address] Dr. Ramses Dumas MCV (RBC) [Entitic vol] 80.7 fL Critically low 81.0-99.0 [facility] Comment on above: Performed By: #### U RCX #### [facility] [address] [place] [address] Dr. Ramses Dumas MONO # 0.5 103/ul Normal 0.3-0.8 [facility] Comment on above: Performed By: #### U RCX #### [facility] [address] [place] [address] Dr. Ramses Dumas Monocytes/100 WBC (Bld) 8.0 % Normal 1.7-12.0 [facility] Comment on above: Performed By: #### U RCX #### [facility] [address] [place] [address] Dr. Ramses Dumas NEUT # 2.9 103/ul Normal 1.4-6.5 [facility] Comment on above: Performed By: #### U RCX #### [facility] [address] [place] [address] Dr. Ramses Dumas Neutrophils/100 WBC (Bld) 49.5 % Normal 43.0-75.0 [facility] Comment on above: Performed By: #### U RCX #### [facility] [address] [place], [place] [id number] Dr. Ramses Dumas Platelet mean volume (Bld) [Entitic vol] 9.0 fL Critically low 9.5-13.5 [facility] Comment on above: Performed By: #### U RCX #### [facility] [address] [place] [address] Dr. Ramses Dumas PLT 337 103/ul Normal 150-450 [facility] Comment on above: Performed By: #### U RCX #### [facility] [address] [address] [address] Ramses Dumas RBC 4.62 106/ul Normal 4.20-5.40 [facility] Comment on above: Performed By: #### U RCX #### [facility] [address] [place] [address] Dr. Ramses Dumas WBC 5.9 103/ul Normal 4.0-11.0 [facility] Comment on above: Performed By: #### U RCX #### [facility] [address] [place] [address] Dr. Ramses Dumas POINT OF CARE GLUCOSEon 10-20 Glucose [Mass/Vol] 115 mg/dL Critically high 74-106 T [facility] Comment on above: Performed By: #### C VDTBH #### [facility] [address] [place] [address] Dr. Ramses Dumas PREG QUANT HCGon 11-07-2022 HCG QUANT <[address] [facility] Comment on above: Performed By: #### C VDTBH #### [facility] [address] [place] [address] Dr. Ramses Dumas HCG RANGE SEE BELOW Normal [facility] Comment on above: Result Comment: 5-50 0.2-1 WEEK 50-500 1-2 WEEKS 100-5,000 2-3 WEEKS 500-10,000 3-4 WEEKS 1,000-50,000 4-5 WEEKS 10,000-100,000 5-6 WEEKS 15,000-200,000 6-8 WEEKS 10,000-100,000 2-3 MONTHS Performed By: #### C VDTBH #### [facility] [address] [place] [address] Dr. Ramses Dumas US PELVIS AND TRANSVAGon [...] cm right ovarian simple cyst Normal [facility] CBC AUTO DIFFon 11-03-2022 BASO # 0.1 103/ul Normal 0.0-0.1 [facility] Comment on above: Performed By: #### U RCX #### [facility] [address] [place] [address] Dr. Ramses Dumas Basophils/100 WBC (Bld) 0.8 % Normal 0.2-2.0 [facility] Comment on above: Performed By: #### U RCX #### [facility] [address] [place] [address] Dr. Ramses Dumas EO # 0.1 103/ul Normal 0.0-0.7 [facility] Comment on above: Performed By: #### U RCX #### [facility] [address] [place] [address] Dr. Ramses Dumas Eosinophils/100 WBC (Bld) 1.4 % Normal 0.9-7.0 [facility] Comment on above: Performed By: #### U RCX #### [facility] [address] [place] [address] Dr. Ramses Dumas Erythrocyte distribution width (RBC) [Ratio] 13.4 % Normal 11.0-15.0 [facility] Comment on above: Performed By: #### U RCX #### [facility] [address] [place] [address] Dr. Ramses Dumas Hematocrit (Bld) [Volume fraction] 38.8 % Normal 36.0-48.0 [facility] Comment on above: Performed By: #### U RCX #### [facility] [address] [place] [address] Dr. Ramses Dumas Hemoglobin (Bld) [Mass/Vol] 12.7 g/dL Normal 12.0-16.0 [facility] Comment on above: Performed By: #### U RCX #### [facility] [address] [place] [address] Dr. Ramses Dumas IG # 0.01 10e3/ul Normal 0.00-0.03 [facility] Comment on above: Performed By: #### U RCX #### [facility] [address] [place] [address] Dr. Ramses Dumas IG % 0.1 % Normal 0.0-0.5 [facility] Comment on above: Performed By: #### U RCX #### [facility] [address] [place] [address] Dr. Ramses Dumas LYMPH # 1.9 103/ul Normal 1.2-3.8 [facility] Comment on above: Performed By: #### U RCX #### [facility] [address] [place] [address] Dr. Ramses Dumas Lymphocytes/100 WBC (Bld) 26.4 % Normal 20.5-60.0 [facility] Comment on above: Performed By: #### U RCX #### [facility] [address] [place] [address] Dr. Ramses Dumas MANUAL DIFF REQ NO Normal The [facility] Comment on above: Performed By: #### U RCX #### [facility] [address] [place] [address] Dr. Ramses Dumas MCH (RBC) [Entitic mass] 26.3 pg Critically low 26.7-34.0 [facility] Comment on above: Performed By: #### U RCX #### [facility] [address] [place] [address] Dr. Ramses Dumas MCHC (RBC) [Mass/Vol] 32.7 g/dL Normal 29.9-35.2 [facility] Comment on above: Performed By: #### U RCX #### [facility] [address] [address] [address] Ramses Dumas MCV (RBC) [Entitic vol] 80.5 fL Critically low 81.0-99.0 [facility] Comment on above: Performed By: #### U RCX #### [facility] [address] [place] [address] Dr. Ramses Dumas MONO # 0.6 103/ul Normal 0.3-0.8 [facility] Comment on above: Performed By: #### U RCX #### [facility] [address] [place] [address] Dr. Ramses Dumas Monocytes/100 WBC (Bld) 8.2 % Normal 1.7-12.0 [facility] Comment on above: Performed By: #### U RCX #### [facility] [address] [place] [address] Dr. Ramses Dumas NEUT # 4.5 103/ul Normal 1.4-6.5 [facility] Comment on above: Performed By: #### U RCX #### [facility] [address] [place] [address] Dr. Ramses Dumas Neutrophils/100 WBC (Bld) 63.1 % Normal 43.0-75.0 [facility] Comment on above: Performed By: #### U RCX #### [facility] [address] [place] [address] Dr. Ramses Dumas Platelet mean volume (Bld) [Entitic vol] 8.9 fL Critically low 9.5-13.5 [facility] Comment on above: Performed By: #### U RCX #### [facility] [address] [place] [address] Dr. aRmses Dumas PLT 340 103/ul Normal 150-450 [facility] Comment on above: Performed By: #### U RCX #### [facility] [address] [place] [address] Dr. Ramses Dumas RBC 4.82 106/ul Normal 4.20-5.40 [facility] Comment on above: Performed By: #### U RCX #### [facility] [address] [place] [address] Dr. Ramses Dumas WBC 7.1 103/ul Normal 4.0-11.0 [facility] Comment on above: Performed By: #### U RCX #### [facility] [address] [place] [address] Dr. Ramses Dum[facility] SARS-CoV-2 (COVID-19) RNA FRANCESCA+probe Ql (Unsp spec) Not detected Normal NOT DETECTED The [facility] Comment on above: Result Comment: This test is not yet approved or cleared by the [place] FDA. When there are no FDA-approved or cleared tests available, and other criteria are met, FDA can make tests available under an emergency access mechanism called an Emergency Use Authorization (EUA). The EUA for this test is supported by the [employer] of Health and Human Service's (HHS's) declaration [...] SARS-CoV-2. Performed By: #### U RCX #### [facility] [address] [place] [address] Dr. Ramses Dumas FREE T4on 11-03-2022 Free T4 [Mass/Vol] 0.99 ng/dL Normal 0.76-1.46 [facility] Comment on above: Performed By: #### B LDCX2 #### [facility] [address] [place] [address] Dr. Ramses Dumas GLYCOHEMOGLOBIN A1Con 2022 ADA RECOMMENDATION SEE BELOW Normal [facility] Comment on above: Result Comment: ADA RECOMMENDED LIMIT 4.0 - 6.0 ADA THERAPEUTIC TARGET < 7.0 ACTION SUGGESTED > 7.0 Performed By: #### C VDTBH #### [facility] [address] [place] [address] Dr. Ramses Dumas Glucose [Mass/Vol] 117 mg/dL Normal [facility] Comment on above: Performed By: #### C VDTBH #### [facility] [address] [place] [address] Dr. Ramses Dumas HbA1c (Bld) [Mass fraction] 5.7 % Normal 4.5-6.2 [facility] Comment on above: Performed By: #### C VDTBH #### [facility] [address] [place] [address] Dr. Ramses Dumas PROTIMEon 11-03-2022 INR Coag (PPP) [Relative time] 0.97 {INR} Normal [facility] Comment on above: Performed By: #### U KJ 24 #### [facility] [address] [place] [address] Dr. Ramses Dumas INR GUIDELINES SEE BELOW Normal The [facility] Comment on above: Result Comment: TOÑA RED INR: 2.0 - 3.0 CONDITIONS NOT LISTED BELOW 2.5 - 3.5 FOR PROSTHETIC HEART VALVE REPLACEMENT 2.5 - 3.5 RECURRENT THROMBOSIS Performed By: #### U KJ 24 #### [facility] [address] [place] [address] Dr. Ramses Dumas PT Coag (PPP) [Time] 10.3 s Normal 9.0-11.6 [facility] Comment on above: Performed By: #### U KJ 24 #### [facility] [address] [place] [address] Dr. Ramses Dumas PTTon 11-03-2022 aPTT Coag (Bld) [Time] 27.7 s Normal 22.3-36.2 Th e [facility] Comment on above: Performed By: #### U KJ 24 #### [facility] [address] [place] [address] Dr. Ramses Dumas TSHon 11-03-2022 TSH 0.667 uIU/mL Normal 0.358-3.740 [facility] Comment on above: Performed By: #### C VDTBH #### [facility] [address] [place] [address] Dr. Ramses Dumas PREG HCG QUALon 09-18-2022 , QUAL Negative Normal NEGATIVE [facility] Comment on above: Performed By: #### U KJ 24 #### [facility] [address] [place] [address] Dr. Ramses Dumas Covid-19 PCR ([facility])on 08-20 SARS-CoV-2 (COVID-19) RNA FRANCESCA+probe Ql (Unsp spec) Not detected Normal NOT DETECTED The [facility] Comment on above: Result Comment: This test is not yet approved or cleared by the [place] FDA. When there are no FDA-approved or cleared tests available, and other criteria are met, FDA can make tests available under an emergency access mechanism called an Emergency Use Authorization (EUA). The EUA for this test is supported by the [employer] of Health and Human Service's (HHS's) declaration [...] SARS-CoV-2. Performed By: #### C VDTBH #### [facility] [address] [place] [address] Dr. Ramses Dumas CBC AUTO DIFFon 09-05-2022 BASO # 0.1 103/ul Normal 0.0-0.1 [facility] Comment on above: Performed By: #### B LDCX2 #### [facility] [address] [place] [address] Dr. Ramses Dumas Basophils/100 WBC (Bld) 0.7 % Normal 0.2-2.0 [facility] Comment on above: Performed By: #### B LDCX2 #### [facility] [address] [place] [address] Dr. Ramses Dumas EO # 0.2 103/ul Normal 0.0-0.7 [facility] Comment on above: Performed By: #### B LDCX2 #### [facility] [address] [place] [address] Dr. Ramses Dumas Eosinophils/100 WBC (Bld) 2.2 % Normal 0.9-7.0 [facility] Comment on above: Performed By: #### B LDCX2 #### [facility] [address] [place] [address] Dr. Ramses Dumas Erythrocyte distribution width (RBC) [Ratio] 13.9 % Normal 11.0-15.0 [facility] Comment on above: Performed By: #### B LDCX2 #### [facility] [address] [place] [address] Dr. Ramses Dumas Hematocrit (Bld) [Volume fraction] 38.8 % Normal 36.0-48.0 [facility] Comment on above: Performed By: #### B LDCX2 #### [facility] [address] [place] [address] Dr. Ramses Dumas Hemoglobin (Bld) [Mass/Vol] 12.6 g/dL Normal 12.0-16.0 [facility] Comment on above: Performed By: #### B LDCX2 #### [facility] [address] [place] [address] Dr. Ramses Dumas IG # 0.03 10e3/ul Normal 0.00-0.03 [facility] Comment on above: Performed By: #### B LDCX2 #### [facility] [address] [place] [address] Dr. Ramses Dumas IG % 0.3 % Normal 0.0-0.5 [facility] Comment on above: Performed By: #### B LDCX2 #### [facility] [address] [place] [address] Dr. Ramses Dumas LYMPH # 2.3 103/ul Normal 1.2-3.8 [facility] Comment on above: Performed By: #### B [id number] #### [facility] [address] [place] [address] Dr. Ramses Dumas Lymphocytes/100 WBC (Bld) 21.3 % Normal 20.5-60.0 [facility] Comment on above: Performed By: #### B LDCX2 #### [facility] [address] [place] [address] Dr. Ramses Dumas MANUAL DIFF REQ NO Normal The [facility] Comment on above: Performed By: #### B LDCX2 #### [facility] [address] [place] [address] Dr. Ramses Dumas MCH (RBC) [Entitic mass] 26.4 pg Critically low 26.7-34.0 [facility] Comment on above: Performed By: #### B LDCX2 #### [facility] [address] [place] [address] Dr. Ramses Dumas MCHC (RBC) [Mass/Vol] 32.5 g/dL Normal 29.9-35.2 [facility] Comment on above: Performed By: #### B LDCX2 #### [facility] [address] [place] [address] Dr. Ramses Dumas MCV (RBC) [Entitic vol] 81.2 fL Normal 81.0-99.0 [facility] Comment on above: Performed By: #### B LDCX2 #### [facility] [address] [place] [address] Dr. Ramses Dumas MONO # 0.8 103/ul Normal 0.3-0.8 [facility] Comment on above: Performed By: #### B LDCX2 #### [facility] [address] [place] [address] Dr. Ramses Dumas Monocytes/100 WBC (Bld) 7.4 % Normal 1.7-12.0 [facility] Comment on above: Performed By: #### B LDCX2 #### [facility] [address] [place] [address] Dr. Ramses Dumas NEUT # 7.3 103/ul Critically high 1.4-6.[address] [facility] Comment on above: Performed By: #### B LDCX2 #### [facility] [address] [place] [address] Dr. Ramses Dumas Neutrophils/100 WBC (Bld) 68.1 % Normal 43.0-75.0 [facility] Comment on above: Performed By: #### B LDCX2 #### [facility] [address] [place] [address] Dr. Ramses Dumas Platelet mean volume (Bld) [Entitic vol] 8.8 fL Critically low 9.5-13.5 [facility] Comment on above: Performed By: #### B LDCX2 #### [facility] [address] [place] [address] Dr. Ramses Dumas PLT 323 103/ul Normal 150-450 [facility] Comment on above: Performed By: #### B LDCX2 #### [facility] [address] [place] [address] Dr. Ramses Dumas RBC 4.78 106/ul Normal 4.20-5.40 [facility] Comment on above: Performed By: #### B LDCX2 #### [facility] [address] [place] [address] Dr. Ramses Dumas WBC 10.7 103/ul Normal 4.0-11.0 [facility] Comment on above: Performed By: #### B LDCX2 #### [facility] [address] [place] [address] Dr. Ramses Dumas CULTURE URINEon 09-05-2022 CULTURE URINE Culture Observations : LIGHT GROWTH OF MIXED GENITAL DAIANA. NO POTENTIAL PATHOGENS SEEN. Normal [facility] Comment on above: Performed By: #### U RCX #### [facility] [address] [address] [address] Ramses Dumas ER URINE PROFILEon 2 Bilirubin Ql (U) Negative Normal NEGATIVE The [facility] Comment on above: Performed By: #### B LDCX2 #### [facility] [address] [address] [address] Ramses Dumas Clarity (U) CLOUDY Abnormal CLEAR [facility] Comment on above: Performed By: #### B LDCX2 #### [facility] [address] [address] [address] Ramses Dumas Color (U) YELLOW Normal YELLOW [facility] Comment on above: Performed By: #### B LDCX2 #### [facility] [address] [place] [address] Dr. Ramses DELEON A micrscopic examination will be performed if indicated. Normal [facility] Comment on above: Performed By: #### B LDCX2 #### [facility] [address] [address] [address] Ramses Dumas Glucose Ql (U) Negative Normal NEGATIVE The [facility] Comment on above: Performed By: #### B LDCX2 #### [facility] [address] [address] [address] Ramses Dumas Hemoglobin Ql (U) LARGE Abnormal NEGATIVE The [facility] Comment on above: Performed By: #### B LDCX2 #### [facility] [address] [address] [address] Ramses Dumas Ketones Ql (U) Negative Normal NEGATIVE The [facility] Comment on above: Performed By: #### B LDCX2 #### [facility] [address] [address] [address] Ramses Dumas LEUKOCYTES SMALL Abnormal NEGATIVE [facility] Comment on above: Performed By: #### B LDCX2 #### [facility] [address] [address] [address] Ramses Dumas Nitrite Ql (U) Negative Normal NEGATIVE [facility] Comment on above: Performed By: #### B LDCX2 #### [facility] [address] [address] [address] Ramses Dumas pH (U) 6.0 [pH] Normal 5-9 [facility] Comment on above: Performed By: #### B LDCX2 #### [facility] [address] [place] [address] Dr. Ramses Dumas Protein (U) [Mass/Vol] 100 mg/dL Abnormal NEGAT CHRIS/ TRACE [facility] Comment on above: Performed By: #### B LDCX2 #### [facility] [address] [place] [address] Dr. Ramses Dumas SPEC GRAVITY >=1.030 Abnormal 1.005-<=1.[address] [facility] Comment on above: Performed By: #### B LDCX2 #### [facility] [address] [place] [address] Dr. Ramses Dumas UR MICRO IND INDICATED Normal [facility] Comment on above: Performed By: #### B LDCX2 #### [facility] [address] [place] [address] Dr. Ramses Dumas Urobilinogen Qn (U) 0.2 {Lucero'U}/dL Normal 0.2 - 1. 0 [facility] Comment on above: Performed By: #### B LDCX2 #### [facility] [address] [place] [address] Dr. Ramses Dumas URon 09-05-2022 , QUAL Negative Normal NEGATIVE [facility] Comment on above: Performed By: #### B LDCX2 #### [facility] [address] [place] [address] Dr. Ramses Dumas PROF CHEM 8 (BAS METB)on Anion gap [Moles/Vol] 11.7 mmol/L Normal [facility] [facility] Comment on above: Performed By: #### C MP #### [facility] [address] [place] [address] Dr. Ramses Dumas Calcium [Mass/Vol] 9.1 mg/dL Normal 8.5-10.1 [facility] Comment on above: Performed By: #### C MP #### [facility] [address] [address] [address] Ramses Dumas Chloride [Moles/Vol] 103 mmol/L Normal 98-107 [facility] Comment on above: Performed By: #### C MP #### [facility] [address] [address] [address] Ramses Dumas CO2 [Moles/Vol] 25.9 mmol/L Normal 21.0-32.0 [facility] Comment on above: Performed By: #### C MP #### [facility] [address] [address] [address] Ramses Dumas Creatinine [Mass/Vol] 0.77 mg/dL Normal 0.55-1.02 [facility] Comment on above: Performed By: #### C MP #### [facility] [address] [place] [address] Dr. Ramses Dumas EGFR-AF MARSHALLESE >60 Normal >=60 [facility] Comment on above: Performed By: #### C MP #### [facility] [address] [address] [address] Ramses Dumas EGFR-NON AF MARSHALLESE >60 Normal >=60 [facility] Comment on above: Performed By: #### C MP #### [facility] [address] [place] [address] Dr. Ramses Dumas Glucose [Mass/Vol] 124 mg/dL Critically high 74-106 [facility] Comment on above: Performed By: #### C MP #### [facility] [address] [address] [address] Ramses Dumas Potassium [Moles/Vol] 3.6 mmol/L Normal 3.5-5.1 [facility] Comment on above: Performed By: #### C MP #### [facility] [address] [address] [address] Ramses Dumas Sodium [Moles/Vol] 137 mmol/L Normal 136-145 [facility] Comment on above: Performed By: #### C MP #### [facility] [address] [address] [address] Ramses Dumas Urea nitrogen [Mass/Vol] 12.0 mg/dL Normal 7.0-18.0 [facility] Comment on above: Performed By: #### C MP #### [facility] [address] [place] [address] Dr. Ramses Dumas Urea nitrogen/Creatinine [Mass ratio] 15.6 mg/mg Normal [facility] Comment on above: Performed By: #### C MP #### [facility] [address] [place] [address] Dr. Ramses Dumas URINE MICROSCOPIC ONLYon AMORPHOUS CRYSTALS RARE Normal The [facility] Comment on above: Performed By: #### B [id number] #### [facility] [address] [place] [address] Dr. Ramses Dumas BACTERIA TRACE Abnormal NONE SEEN [facility] Comment on above: Performed By: #### B [id number] #### [facility] [address] [place] [address] Dr. Ramses Dumas Bacteria identified Cx Nom (U) INDICATED Normal [facility] Comment on above: Performed By: #### B [id number] #### [facility] [address] [place] [address] Dr. Ramses Dumas CA OX CRYSTALS RARE Normal The [facility] Comment on above: Performed By: #### B [id number] #### [facility] [address] [place] [address] Dr. Ramses Dumas CAST NONE SEEN Normal NONE SEEN [facility] Comment on above: Performed By: #### B [id number] #### [facility] [address] [place] [address] Dr. Ramses Dumas Crystals LM Nom (Urine sed) SEEN Abnormal NONE SEEN [facility] Comment on above: Performed By: #### B [id number] #### [facility] [address] [place] [address] Dr. Ramses Dumas Epithelial cells LM Ql (Urine sed) FEW Abnormal NONE SEEN /RARE The [facility] Comment on above: Performed By: #### B [id number] #### [facility] [address] [place] [address] Dr. Ramses Dumas MUCOUS TRACE Abnormal NONE SEEN The [facility] Comment on above: Performed By: #### B [id number] #### [facility] [address] [place] [address] Dr. Ramses Dumas RBC 50-75 Abnormal 0-2 The [facility] Comment on above: Performed By: #### B [id number] #### [facility] [address] [address] [address] Ramses Dumas WBC 20-50 Abnormal NONE SEEN The [facility] Comment on above: Performed By: #### B [id number] #### [facility] [address] [address] [address] Ramses Dumas YEAST PRESENT Abnormal NONE SEEN The [facility] Comment on above: Performed By: #### B [id number] #### [facility] [address] [place] [address] Dr. Ramses Dumas US KIDNEYSon 09-05-2022 US [...] GLEN [place]RAFF Date: 2022-09-05 11:00 Normal The [facility] CT ABD/PELVIS WO CONon 08-29 CT [...] fatty liver, unchanged. Electronically authenticated by: ERICKA IGLSEIAS Date: 2022-08-29 01:10 Normal The [facility] CULTURE URINEon 08-29-2022 CULTURE URINE Culture Observations : LIGHT GROWTH OF MIXED GENITAL DAIANA. NO POTENTIAL PATHOGENS SEEN. Normal The [facility] Comment on above: Performed By: #### U RCX #### [facility] [address] [place] [address] Dr. Ramses Dumas CBC AUTO DIFFon 08-28-2022 BASO # 0.1 103/ul Normal 0.0-0.1 The [facility] Comment on above: Performed By: #### U RCX #### [facility] [address] [address] [address] Ramses Dumas Basophils/100 WBC (Bld) 0.5 % Normal 0.2-2.0 [facility] Comment on above: Performed By: #### U RCX #### [facility] [address] [place] [address] Dr. Ramses Dumas EO # 0.3 103/ul Normal 0.0-0.7 [facility] Comment on above: Performed By: #### U RCX #### [facility] [address] [place] [address] Dr. Ramses Dumas Eosinophils/100 WBC (Bld) 2.3 % Normal 0.9-7.0 [facility] Comment on above: Performed By: #### U RCX #### [facility] [address] [place] [address] Dr. Ramses Dumas Erythrocyte distribution width (RBC) [Ratio] 13.7 % Normal 11.0-15.0 [facility] Comment on above: Performed By: #### U RCX #### [facility] [address] [place] [address] Dr. Ramses Dumas Hematocrit (Bld) [Volume fraction] 36.7 % Normal 36.0-48.0 [facility] Comment on above: Performed By: #### U RCX #### [facility] [address] [place] [address] Dr. Ramses Dumas Hemoglobin (Bld) [Mass/Vol] 12.3 g/dL Normal 12.0-16.0 [facility] Comment on above: Performed By: #### U RCX #### [facility] [address] [place] [address] Dr. Ramses Dumas IG # 0.16 10e3/ul Critically high 0.00-0.03 [facility] Comment on above: Performed By: #### U RCX #### [facility] [address] [place] [address] Dr. Ramses Dumas IG % 1.1 % Critically high 0.0-0.[address] [facility] Comment on above: Performed By: #### U RCX #### [facility] [address] [place] [address] Dr. Ramses Dumas LYMPH # 4.6 103/ul Critically high 1.2-3.[address] [facility] Comment on above: Performed By: #### U RCX #### [facility] [address] [place] [address] Dr. Ramses Dumas Lymphocytes/100 WBC (Bld) 31.8 % Normal 20.5-60.0 [facility] Comment on above: Performed By: #### U RCX #### [facility] [address] [place] [address] Dr. Ramses Dumas MANUAL DIFF REQ NO Normal The [facility] Comment on above: Performed By: #### U RCX #### [facility] [address] [address] [address] Ramses Dumas MCH (RBC) [Entitic mass] 26.9 pg Normal 26.7-34.0 [facility] Comment on above: Performed By: #### U RCX #### [facility] [address] [place] [address] Dr. Ramses Dumas MCHC (RBC) [Mass/Vol] 33.5 g/dL Normal 29.9-35.2 [facility] Comment on above: Performed By: #### U RCX #### [facility] [address] [place] [address] Dr. Ramses Dumas MCV (RBC) [Entitic vol] 80.3 fL Critically low 81.0-99.0 [facility] Comment on above: Performed By: #### U RCX #### [facility] [address] [place] [address] Dr. Ramses Dumas MONO # 1.0 103/ul Critically high 0.3-0.[address] [facility] Comment on above: Performed By: #### U RCX #### [facility] [address] [place] [address] Dr. Ramses Dumas Monocytes/100 WBC (Bld) 7.0 % Normal 1.7-12.0 [facility] Comment on above: Performed By: #### U RCX #### [facility] [address] [place] [address] Dr. Ramses Dumas NEUT # 8.2 103/ul Critically high 1.4-6.[address] [facility] Comment on above: Performed By: #### U RCX #### [facility] [address] [address] [address] Ramses Dumas Neutrophils/100 WBC (Bld) 57.3 % Normal 43.0-75.0 [facility] Comment on above: Performed By: #### U RCX #### [facility] [address] [place] [address] Dr. Ramses Dumas Platelet mean volume (Bld) [Entitic vol] 8.6 fL Critically low 9.5-13.5 [facility] Comment on above: Performed By: #### U RCX #### [facility] [address] [place] [address] Dr. Ramses Dumas PLT 395 103/ul Normal 150-450 [facility] Comment on above: Performed By: #### U RCX #### [facility] [address] [place] [address] Dr. Ramses Dumas RBC 4.57 106/ul Normal 4.20-5.40 [facility] Comment on above: Performed By: #### U RCX #### [facility] [address] [place] [address] Dr. Ramses Dumas WBC 14.3 103/ul Critically high 4.0-11.0 The [facility] Comment on above: Performed By: #### U RCX #### [facility] [address] [place] [address] Dr. Ramses Dumas ER URINE PROFILEon 2 Bilirubin Ql (U) Negative Normal NEGATIVE The [facility] Comment on above: Performed By: #### U KJ 24 #### [facility] [address] [place] [address] Dr. Ramses Dumas Clarity (U) CLEAR Normal CLEAR The [facility] Comment on above: Performed By: #### U KJ 24 #### [facility] [address] [place] [address] Dr. Ramses Dumas Color (U) LT. YELLOW Normal YELLOW The [facility] Comment on above: Performed By: #### U KJ 24 #### [facility] [address] [place] [address] Dr. Ramses Dumas ERUAHD A micrscopic examination will be performed if indicated. Normal The [facility] Comment on above: Performed By: #### U KJ 24 #### [facility] [address] [place] [address] Dr. Ramses Dumas Glucose Ql (U) Negative Normal NEGATIVE The [facility] Comment on above: Performed By: #### U KJ 24 #### [facility] [address] [place] [address] Dr. Ramses Dumas Hemoglobin Ql (U) LARGE Abnormal NEGATIVE The [facility] Comment on above: Performed By: #### U KJ 24 #### [facility] [address] [place] [address] Dr. Ramses Dumas Ketones Ql (U) Negative Normal NEGATIVE The [facility] Comment on above: Performed By: #### U KJ 24 #### [facility] [address] [place] [address] Dr. Ramses Dumas LEUKOCYTES MODERATE Abnormal NEGATIVE [facility] Comment on above: Performed By: #### U KJ 24 #### [facility] [address] [place] [address] Dr. Ramses Dumas Nitrite Ql (U) Negative Normal NEGATIVE [facility] Comment on above: Performed By: #### U KJ 24 #### [facility] [address] [place] [address] Dr. Ramses Dumas pH (U) 6.5 [pH] Normal 5-9 [facility] Comment on above: Performed By: #### U KJ 24 #### [facility] [address] [place] [address] Dr. Ramses Dumas Protein (U) [Mass/Vol] 100 mg/dL Abnormal NEGAT CHRIS/ TRACE The [facility] Comment on above: Performed By: #### U KJ 24 #### [facility] [address] [place] [address] Dr. Ramses Dumas SPEC GRAVITY 1.020 Normal 1.005-<=1.[address] [place] [address] Comment on above: Performed By: #### U KJ 24 #### [facility] [address] [place] [address] Dr. Ramses Dumas UR MICRO IND INDICATED Normal [facility] Comment on above: Performed By: #### U KJ 24 #### [facility] [address] [place] [address] Dr. Ramses Dumas Urobilinogen Qn (U) 0.2 {Lucero'U}/dL Normal 0.2 - 1. 0 [facility] Comment on above: Performed By: #### U KJ 24 #### [facility] [address] [place] [address] Dr. Ramses Dumas PROF 14(COMP METB)on 022 Albumin [Mass/Vol] 3.3 g/dL Critically low 3.4-5.0 Th e [facility] Comment on above: Performed By: #### C MP #### [facility] [address] [place] [address] Dr. Ramses Dumas Albumin/Globulin [Mass ratio] 0.8 {ratio} Normal [facility] Comment on above: Performed By: #### C MP #### [facility] [address] [place] [address] Dr. Ramses Dumas ALP [Catalytic activity/Vol] 108 U/L Normal 46-116 [facility] Comment on above: Performed By: #### C MP #### [facility] [address] [place] [address] Dr. Ramses Dumas ALT [Catalytic activity/Vol] 103 U/L Critically high 14-59 [facility] Comment on above: Performed By: #### C MP #### [facility] [address] [place] [address] Dr. Ramses Dumas Anion gap [Moles/Vol] 6.6 mmol/L Normal [facility] Comment on above: Performed By: #### C MP #### [facility] [address] [place] [address] Dr. Ramses Dumas AST [Catalytic activity/Vol] 21 U/L Normal 15-37 [facility] Comment on above: Performed By: #### C MP #### [facility] [address] [place] [address] Dr. Ramses Dumas Bilirubin [Mass/Vol] 0.2 mg/dL Normal 0.2-1.0 [facility] Comment on above: Performed By: #### C MP #### [facility] [address] [address] [address] Ramses Dumas Calcium [Mass/Vol] 9.2 mg/dL Normal 8.5-10.1 [facility] Comment on above: Performed By: #### C MP #### [facility] [address] [address] [address] Ramses Dumas Chloride [Moles/Vol] 102 mmol/L Normal 98-107 [facility] Comment on above: Performed By: #### C MP #### [facility] [address] [address] [address] Ramses Dumas CO2 [Moles/Vol] 28.8 mmol/L Normal 21.0-32.0 [facility] Comment on above: Performed By: #### C MP #### [facility] [address] [address] [address] Ramses Dumas Creatinine [Mass/Vol] 0.92 mg/dL Normal 0.55-1.02 [facility] Comment on above: Performed By: #### C MP #### [facility] [address] [address] [address] Ramses Dumas EGFR-AF MARSHALLESE >60 Normal >=60 [facility] Comment on above: Performed By: #### C MP #### [facility] [address] [address] [address] Ramses Dumsa EGFR-NON AF MARSHALLESE >60 Normal >=60 [facility] Comment on above: Performed By: #### C MP #### [facility] [address] [address] [address] Ramses Dumas Globulin (S) [Mass/Vol] 4.1 g/dL Normal [facility] Comment on above: Performed By: #### C MP #### [facility] [address] [address] [address] Ramses Dumas Glucose [Mass/Vol] 114 mg/dL Critically high 74-106 [facility] Comment on above: Performed By: #### C MP #### [facility] [address] [address] [address] Ramses Dumas Potassium [Moles/Vol] 3.4 mmol/L Critically low 3.5-5.1 [facility] Comment on above: Performed By: #### C MP #### [facility] [address] [place] [address] Dr. Ramses Dumas Protein [Mass/Vol] 7.4 g/dL Normal 6.4-8.2 [facility] Comment on above: Performed By: #### C MP #### [facility] [address] [place] [address] Dr. Ramses Dumas Sodium [Moles/Vol] 134 mmol/L Critically low 136-145 [facility] Comment on above: Performed By: #### C MP #### [facility] [address] [place] [address] Dr. Ramses Dumas Urea nitrogen [Mass/Vol] 11.0 mg/dL Normal 7.0-18.0 [facility] Comment on above: Performed By: #### C MP #### [facility] [address] [place] [address] Dr. Ramses Dumas Urea nitrogen/Creatinine [Mass ratio] 12.0 mg/mg Normal [facility] Comment on above: Performed By: #### C MP #### [facility] [address] [place] [address] Dr. Ramses Dumas URINE MICROSCOPIC ONLYon BACTERIA MODERATE Abnormal NONE SEEN [facility] Comment on above: Performed By: #### U KJ 24 #### [facility] [address] [place] [address] Dr. Ramses Dumas Bacteria identified Cx Nom (U) INDICATED Normal [facility] Comment on above: Performed By: #### U KJ 24 #### [facility] [address] [place] [address] Dr. Ramses Dumas CAST NONE SEEN Normal NONE SEEN [facility] Comment on above: Performed By: #### U KJ 24 #### [facility] [address] [place] [address] Dr. Ramses Dumas Crystals LM Nom (Urine sed) NONE SEEN Normal NONE SEEN [facility] Comment on above: Performed By: #### U KJ 24 #### [facility] [address] [place] [address] Dr. Ramses Dumas Epithelial cells LM Ql (Urine sed) RARE Normal NONE SEEN /RARE The [facility] Comment on above: Performed By: #### U KJ 24 #### [facility] [address] [place] [address] Dr. Ramses Dumas MUCOUS NONE SEEN Normal NONE SEEN The [facility] Comment on above: Performed By: #### U KJ 24 #### [facility] [address] [place] [address] Dr. Ramses Dumas RBC 20-50 Abnormal 0-2 [facility] Comment on above: Performed By: #### U KJ 24 #### [facility] [address] [place] [address] Dr. Ramses Dumas WBC 5-[address] [facility] Comment on above: Performed By: #### U KJ 24 #### [facility] [address] [place] [address] Dr. Ramses Dumas CULTURE BLOODon 08-25-2022 Microscopic [...] F Tetracycline >=16 R F Normal The [facility] Comment on above: Performed By: #### B LDCX2 #### [facility] [address] [place] [address] Dr. Ramses Dumas Performed By: #### C BC #### [facility] [address] [place] [address] Dr. Ramses Dumas CBC AUTO DIFFon 08-24-2022 BASO # 0.0 103/ul Normal 0.0-0.1 [facility] Comment on above: Performed By: #### C BC #### [facility] [address] [address] [address] Ramses Dumas Basophils/100 WBC (Bld) 0.1 % Critically low 0.2-2.0 [facility] Comment on above: Performed By: #### C BC #### [facility] [address] [address] [address] Ramses Dumas EO # 0.0 103/ul Normal 0.0-0.7 [facility] Comment on above: Performed By: #### C BC #### [facility] [address] [place] [address] Dr. Ramses Dumas Eosinophils/100 WBC (Bld) 0.0 % Critically low 0.9-7.0 [facility] Comment on above: Performed By: #### C BC #### [facility] [address] [place] [address] Dr. Ramses Dumas Erythrocyte distribution width (RBC) [Ratio] 13.5 % Normal 11.0-15.0 [facility] Comment on above: Performed By: #### C BC #### [facility] [address] [place] [address] Dr. Ramses Dumas Hematocrit (Bld) [Volume fraction] 33.0 % Critically low 36.0-48.0 [facility] Comment on above: Performed By: #### C BC #### [facility] [address] [place] [address] Dr. Rmases Dumas Hemoglobin (Bld) [Mass/Vol] 10.7 g/dL Critically low 12.0-16.0 [facility] Comment on above: Performed By: #### C BC #### [facility] [address] [place] [address] Dr. Ramses Dumas IG # 0.04 10e3/ul Critically high 0.00-0.03 [facility] Comment on above: Performed By: #### C BC #### [facility] [address] [place] [address] Dr. Ramses Dumas IG % 0.4 % Normal 0.0-0.5 [facility] Comment on above: Performed By: #### C BC #### [facility] [address] [address] [address] Ramses Dumas LYMPH # 0.8 103/ul Critically low 1.2-3.8 [facility] Comment on above: Performed By: #### C BC #### [facility] [address] [address] [address] Ramses Dumas Lymphocytes/100 WBC (Bld) 7.9 % Critically low 20.5-60.0 [facility] Comment on above: Performed By: #### C BC #### [facility] [address] [place] [address] Dr. Ramses Dumas MANUAL DIFF REQ NO Normal [facility] Comment on above: Performed By: #### C BC #### [facility] [address] [place] [address] Dr. Ramses Dumas MCH (RBC) [Entitic mass] 26.5 pg Critically low 26.7-34.0 [facility] Comment on above: Performed By: #### C BC #### [facility] [address] [place] [address] Dr. Ramses Dumas MCHC (RBC) [Mass/Vol] 32.4 g/dL Normal 29.9-35.2 [facility] Comment on above: Performed By: #### C BC #### [facility] [address] [place] [address] Dr. Ramses Dumas MCV (RBC) [Entitic vol] 81.7 fL Normal 81.0-99.0 [facility] Comment on above: Performed By: #### C BC #### [facility] [address] [place] [address] Dr. Ramses Dumas MONO # 0.6 103/ul Normal 0.3-0.8 [facility] Comment on above: Performed By: #### C BC #### [facility] [address] [place] [address] Dr. Ramses Dumas Monocytes/100 WBC (Bld) 6.3 % Normal 1.7-12.0 [facility] Comment on above: Performed By: #### C BC #### [facility] [address] [place] [address] Dr. Ramses Dumas NEUT # 8.6 103/ul Critically high 1.4-6.5 [facility] Comment on above: Performed By: #### C BC #### [facility] [address] [place] [address] Dr. Ramses Dumas Neutrophils/100 WBC (Bld) 85.3 % Critically high 43.0-75.0 [facility] Comment on above: Performed By: #### C BC #### [facility] [address] [place] [address] Dr. Ramses Dumas Platelet mean volume (Bld) [Entitic vol] 9.1 fL Critically low 9.5-13.5 [facility] Comment on above: Performed By: #### C BC #### [facility] [address] [place] [address] Dr. Ramses Dumas PLT 248 103/ul Normal 150-450 [facility] Comment on above: Performed By: #### C BC #### [facility] [address] [place] [address] Dr. Ramses Dumas RBC 4.04 106/ul Critically low 4.20-5.[address] [facility] Comment on above: Performed By: #### C BC #### [facility] [address] [place] [address] Dr. Ramses Dumas WBC 10.1 103/ul Normal 4.0-11.0 [facility] Comment on above: Performed By: #### C BC #### [facility] [address] [place] [address] Dr. Ramses Dumas CULTURE URINEon 08-24-2022 CULTURE [...] S F Tetracycline >=[address] [facility] Comment on above: Performed By: #### U RCX #### [facility] [address] [place] [address] Dr. Ramses Dumas PROF 14(COMP METB)on 022 Albumin [Mass/Vol] 2.4 g/dL Critically low 3.4-5.0 Th e [facility] Comment on above: Performed By: #### C VDTBH #### [facility] [address] [place] [address] Dr. Ramses Dumas Albumin/Globulin [Mass ratio] 0.7 {ratio} Normal [facility] Comment on above: Performed By: #### C VDTBH #### [facility] [address] [place] [address] Dr. Ramses Dumas ALP [Catalytic activity/Vol] 95 U/L Normal 46-116 [facility] Comment on above: Performed By: #### C VDTBH #### [facility] [address] [place] [address] Dr. Ramses Dumas ALT [Catalytic activity/Vol] 327 U/L Critically high 14-59 [facility] Comment on above: Performed By: #### C VDTBH #### [facility] [address] [place] [address] Dr. Ramses Dumas Anion gap [Moles/Vol] 8.7 mmol/L Normal [facility] Comment on above: Performed By: #### C VDTBH #### [facility] [address] [place] [address] Dr. Ramses Dumas AST [Catalytic activity/Vol] 165 U/L Critically high 15-37 [facility] Comment on above: Performed By: #### C VDTBH #### [facility] [address] [place] [address] Dr. Ramses Dumas Bilirubin [Mass/Vol] 0.4 mg/dL Normal 0.2-1.0 [facility] Comment on above: Performed By: #### C VDTBH #### [facility] [address] [place] [address] Dr. Ramses Dumas Calcium [Mass/Vol] 8.0 mg/dL Critically low 8.5-10.1 Th e [facility] Comment on above: Performed By: #### C VDTBH #### [facility] [address] [place] [address] Dr. Ramses Dumas Chloride [Moles/Vol] 108 mmol/L Critically high 98-107 [facility] Comment on above: Performed By: #### C VDTBH #### [facility] [address] [place] [address] Dr. Ramses Dumas CO2 [Moles/Vol] 25.3 mmol/L Normal 21.0-32.0 [facility] Comment on above: Performed By: #### C VDTBH #### [facility] [address] [place] [address] Dr. Ramses Dumas Creatinine [Mass/Vol] 0.70 mg/dL Normal 0.55-1.02 [facility] Comment on above: Performed By: #### C VDTBH #### [facility] [address] [place] [address] Dr. Ramses Dumas EGFR-AF MARSHALLESE >60 Normal >=60 [facility] Comment on above: Performed By: #### C VDTBH #### [facility] [address] [place] [address] Dr. Ramses Dumas EGFR-NON AF MARSHALLESE >60 Normal >=60 [facility] Comment on above: Performed By: #### C VDTBH #### [facility] [address] [place] [address] Dr. Ramses Dumas Globulin (S) [Mass/Vol] 3.6 g/dL Normal [facility] Comment on above: Performed By: #### C VDTBH #### [facility] [address] [place] [address] Dr. Ramses Dumas Glucose [Mass/Vol] 160 mg/dL Critically high 74-106 T [facility] Comment on above: Performed By: #### C VDTBH #### [facility] [address] [place] [address] Dr. Ramses Dumas Potassium [Moles/Vol] 4.0 mmol/L Normal 3.5-5.1 [facility] Comment on above: Performed By: #### C VDTBH #### [facility] [address] [place] [address] Dr. Ramses Dumas Protein [Mass/Vol] 6.0 g/dL Critically low 6.4-8.2 Th [facility] Comment on above: Performed By: #### C VDTBH #### [facility] [address] [place] [address] Dr. Ramses Dumas Sodium [Moles/Vol] 138 mmol/L Normal 136-145 [facility] Comment on above: Performed By: #### C VDTBH #### [facility] [address] [place] [address] Dr. Ramses Dumas Urea nitrogen [Mass/Vol] 6.0 mg/dL Critically low 7.0-18.0 [facility] Comment on above: Performed By: #### C VDTBH #### [facility] [address] [place] [address] Dr. Ramses Dumas Urea nitrogen/Creatinine [Mass ratio] 8.6 mg/mg Normal [facility] Comment on above: Performed By: #### C VDTBH #### [facility] [address] [place] [address] Dr. Ramses Dumas CBC AUTO DIFFon 08-23-2022 BASO # 0.0 103/ul Normal 0.0-0.1 [facility] Comment on above: Performed By: #### U RCX #### [facility] [address] [place] [address] Dr. Ramses Dumas Basophils/100 WBC (Bld) 0.2 % Normal 0.2-2.0 [facility] Comment on above: Performed By: #### U RCX #### [facility] [address] [place] [address] Dr. Ramses Dumas EO # 0.0 103/ul Normal 0.0-0.7 [facility] Comment on above: Performed By: #### U RCX #### [facility] [address] [place] [address] Dr. Ramses Dumas Eosinophils/100 WBC (Bld) 0.1 % Critically low 0.9-7.0 [facility] Comment on above: Performed By: #### U RCX #### [facility] [address] [place] [address] Dr. Ramses Dumas Erythrocyte distribution width (RBC) [Ratio] 13.4 % Normal 11.0-15.0 [facility] Comment on above: Performed By: #### U RCX #### [facility] [address] [place] [address] Dr. Ramses Dumas Hematocrit (Bld) [Volume fraction] 34.1 % Critically low 36.0-48.0 [facility] Comment on above: Performed By: #### U RCX #### [facility] [address] [place] [address] Dr. Ramses Dumas Hemoglobin (Bld) [Mass/Vol] 10.9 g/dL Critically low 12.0-16.0 [facility] Comment on above: Performed By: #### U RCX #### [facility] [address] [place] [address] Dr. Ramses Dumas IG # 0.02 10e3/ul Normal 0.00-0.03 [facility] Comment on above: Performed By: #### U RCX #### [facility] [address] [place] [address] Dr. Ramses Dumas IG % 0.2 % Normal 0.0-0.5 [facility] Comment on above: Performed By: #### U RCX #### [facility] [address] [place] [address] Dr. Ramses Dumas LYMPH # 0.7 103/ul Critically low 1.2-3.8 The [facility] Comment on above: Performed By: #### U RCX #### [facility] [address] [place], [place] [id number] Dr. Ramses Dumas Lymphocytes/100 WBC (Bld) 6.9 % Critically low 20.5-60.0 The [facility] Comment on above: Performed By: #### U RCX #### [facility] [address] [place] [address] Dr. Ramses Dumas MANUAL DIFF REQ NO Normal The [facility] Comment on above: Performed By: #### U RCX #### [facility] [address] [place] [address] Dr. Ramses Dumas MCH (RBC) [Entitic mass] 26.1 pg Critically low 26.7-34.0 [facility] Comment on above: Performed By: #### U RCX #### [facility] [address] [place] [address] Dr. Ramses Dumas MCHC (RBC) [Mass/Vol] 32.0 g/dL Normal 29.9-35.2 [facility] Comment on above: Performed By: #### U RCX #### [facility] [address] [place] [address] Dr. Ramses Dumas MCV (RBC) [Entitic vol] 81.8 fL Normal 81.0-99.0 [facility] Comment on above: Performed By: #### U RCX #### [facility] [address] [place] [address] Dr. Ramses Dumas MONO # 0.6 103/ul Normal 0.3-0.8 [facility] Comment on above: Performed By: #### U RCX #### [facility] [address] [place] [address] Dr. Ramses Dumas Monocytes/100 WBC (Bld) 5.9 % Normal 1.7-12.0 [facility] Comment on above: Performed By: #### U RCX #### [facility] [address] [place] [address] Dr. Ramses Dumas NEUT # 8.2 103/ul Critically high 1.4-6.[address] [facility] Comment on above: Performed By: #### U RCX #### [facility] [address] [address] [address] Ramses Dumas Neutrophils/100 WBC (Bld) 86.7 % Critically high 43.0-75.0 [facility] Comment on above: Performed By: #### U RCX #### [facility] [address] [place] [address] Dr. Ramses Dumas Platelet mean volume (Bld) [Entitic vol] 9.4 fL Critically low 9.5-13.5 [facility] Comment on above: Performed By: #### U RCX #### [facility] [address] [address] [address] Ramses Dumas PLT 235 103/ul Normal 150-450 [facility] Comment on above: Performed By: #### U RCX #### [facility] [address] [place] [address] Dr. Ramses Dumas RBC 4.17 106/ul Critically low 4.20-5.40 [facility] Comment on above: Performed By: #### U RCX #### [facility] [address] [place] [address] Dr. Ramses Dumas WBC 9.5 103/ul Normal 4.0-11.0 [facility] Comment on above: Performed By: #### U RCX #### [facility] [address] [place] [address] Dr. Ramses Dumas PROF 14(COMP METB)on 022 Albumin [Mass/Vol] 2.6 g/dL Critically low 3.4-5.0 [facility] Comment on above: Performed By: #### U KJ 24 #### [facility] [address] [place] [address] Dr. Ramses Dumas Albumin/Globulin [Mass ratio] 0.8 {ratio} Normal [facility] Comment on above: Performed By: #### U KJ 24 #### [facility] [address] [place] [address] Dr. Ramses Dumas ALP [Catalytic activity/Vol] 82 U/L Normal 46-116 [facility] Comment on above: Performed By: #### U KJ 24 #### [facility] [address] [address] [address] Ramses Dumas ALT [Catalytic activity/Vol] 257 U/L Critically high 14-59 [facility] Comment on above: Performed By: #### U KJ 24 #### [facility] [address] [address] [address] Ramses Dumas Anion gap [Moles/Vol] 10.3 mmol/L Normal [facility] Comment on above: Performed By: #### U KJ 24 #### [facility] [address] [address] [address] Ramses Dumas AST [Catalytic activity/Vol] 196 U/L Critically high 15-37 [facility] Comment on above: Performed By: #### U KJ 24 #### [facility] [address] [address] [address] Ramses Dumas Bilirubin [Mass/Vol] 0.5 mg/dL Normal 0.2-1.0 [facility] Comment on above: Performed By: #### U KJ 24 #### [facility] [address] [place] [address] Dr. Ramses Dumas Calcium [Mass/Vol] 7.8 mg/dL Critically low 8.5-10.1 [facility] Comment on above: Performed By: #### U KJ 24 #### [facility] [address] [place] [address] Dr. Ramses Dumas Chloride [Moles/Vol] 104 mmol/L Normal 98-107 [facility] Comment on above: Performed By: #### U KJ 24 #### [facility] [address] [address] [address] Ramses Dumas CO2 [Moles/Vol] 24.4 mmol/L Normal 21.0-32.0 [facility] Comment on above: Performed By: #### U KJ 24 #### [facility] [address] [address] [address] Ramses Dumas Creatinine [Mass/Vol] 1.09 mg/dL Critically high 0.55-1.02 [facility] Comment on above: Performed By: #### U KJ 24 #### [facility] [address] [address] [address] Ramses Dumas EGFR-AF MARSHALLESE >60 Normal >=60 [facility] Comment on above: Performed By: #### U KJ 24 #### [facility] [address] [address] [address] Ramses Dumas EGFR-NON AF MARSHALLESE 59 mL/min/1.73m2 Critically low >=60 [facility] Comment on above: Performed By: #### U KJ 24 #### [facility] [address] [address] [address] Ramses Dumas Globulin (S) [Mass/Vol] 3.3 g/dL Normal [facility] Comment on above: Performed By: #### U KJ 24 #### [facility] [address] [address] [address] Ramses Dumas Glucose [Mass/Vol] 143 mg/dL Critically high 74-106 T [facility] Comment on above: Performed By: #### U KJ 24 #### [facility] [address] [address] [address] Ramses Dumas Potassium [Moles/Vol] 3.7 mmol/L Normal 3.5-5.1 [facility] Comment on above: Performed By: #### U KJ 24 #### [facility] [address] [place] [address] Dr. Ramses Dumas Protein [Mass/Vol] 5.9 g/dL Critically low 6.4-8.2 Th [facility] Comment on above: Performed By: #### U KJ 24 #### [facility] [address] [place] [address] Dr. Ramses Dumas Sodium [Moles/Vol] 135 mmol/L Critically low 136-145 Th [facility] Comment on above: Performed By: #### U KJ 24 #### [facility] [address] [address] [address] Ramses Dumas Urea nitrogen [Mass/Vol] 10.0 mg/dL Normal 7.0-18.0 [facility] Comment on above: Performed By: #### U KJ 24 #### [facility] [address] [address] [address] Ramses Dumas Urea nitrogen/Creatinine [Mass ratio] 9.2 mg/mg Normal [facility] Comment on above: Performed By: #### U KJ 24 #### [facility] [address] [place] [address] Dr. Ramses Dumas BLOOD CULTURE ID PANELon A. baumannii Not detected Normal NOT DETECTED [facility] Comment on above: Performed By: #### C VDTBH #### [facility] [address] [place] [address] Dr. Ramses Dumas Bacteriodes fragilis Not detected Normal NOT DETECTED [facility] Comment on above: Performed By: #### C VDTBH #### [facility] [address] [place] [address] Dr. Ramses SHEPPARDD CONTROLS PASSED Normal The [facility] Comment on above: Performed By: #### C VDTBH #### [facility] [address] [place] [address] Dr. Ramses SHEPPARDDBTHD BLOOD CULTURE BOTTLE INFORMATION Normal [facility] Comment on above: Performed By: #### C VDTBH #### [facility] [address] [place] [address] Dr. Ramses Dumas BCIDHD1 ANTIMICROBIAL RESISTANCE GENES [facility] Comment on above: Performed By: #### C VDTBH #### [facility] [address] [place] [address] Dr. Ramses SHEPPARDDHD2 SEE BELOW [facility] Comment on above: Result Comment: Note : Antimicrobial resitance can occur via multiple mechanisms. A Not Detected result for the [employer] antomicrobial resistance gene assays does not indicate antimicrobial susceptibility. Subculturing is required for species identification and susceptibility testing of isolates. Performed By: #### C VDTBH #### [facility] [address] [place] [address] Dr. Ramses SHEPPARDDHD3 Positive [facility] Comment on above: Performed By: #### C VDTBH #### [facility] [address] [place] [address] Dr. Ramses SHEPPARDDHD4 Negative [facility] Comment on above: Performed By: #### C VDTBH #### [facility] [address] [address] [address] Ramses Dumas BCIDHD5 YEAST Normal [facility] Comment on above: Performed By: #### C VDTBH #### [facility] [address] [address] [address] Ramses Dumas Bottle Set: Set [address] [facility] Comment on above: Performed By: #### C VDTBH #### [facility] [address] [place] [address] Dr. Ramses Dumas Bottle: Pediatric Normal [facility] Comment on above: Performed By: #### C VDTBH #### [facility] [address] [place] [address] Dr. Ramses Vincent. neoformans/gattii Not detected Normal NOT DETECTED [facility] Comment on above: Performed By: #### C VDTBH #### [facility] [address] [place] [address] Dr. Ramses Dumas Kim albicans Not detected Normal NOT DETECTED [facility] Comment on above: Performed By: #### C VDTBH #### [facility] [address] [place] [address] Dr. Ramses Dumas Kim auris Not detected Normal NOT DETECTED [facility] Comment on above: Performed By: #### C VDTBH #### [facility] [address] [place] [address] Dr. Ramses Dumas Kim glabrata Not detected Normal NOT DETECTED [facility] Comment on above: Performed By: #### C VDTBH #### [facility] [address] [place] [address] Dr. Ramses Dumas Kim Krusei Not detected Normal NOT DETECTED [facility] Comment on above: Performed By: #### C VDTBH #### [facility] [address] [place] [address] Dr. Ramses Dumas Kim Parapsilosis Not detected Normal NOT DETECTED [facility] Comment on above: Performed By: #### C VDTBH #### [facility] [address] [place] [address] Dr. Ramses Dumas Kim Tropicalis Not detected Normal NOT DETECTED [facility] Comment on above: Performed By: #### C VDTBH #### [facility] [address] [place] [address] Dr. Ramses Dumas CTX-M Resistant Gene Not Applicable Normal NOT DETECTE D [facility] Comment on above: Performed By: #### C VDTBH #### [facility] [address] [place] [address] Dr. Ramses Dumas E. Cloacae complex Not detected Normal NOT DETECTED [facility] Comment on above: Performed By: #### C VDTBH #### [facility] [address] [place] [address] Dr. Ramses Dumas E. faecalis Not detected Normal NOT DETECTED [facility] Comment on above: Performed By: #### C VDTBH #### [facility] [address] [place] [address] Dr. Ramses Dumas E. faecium Not detected Normal NOT DETECTED [facility] Comment on above: Performed By: #### C VDTBH #### [facility] [address] [place] [address] Dr. Ramses Dumas Enterobacteriaceae Not detected Normal NOT DETECTED [facility] Comment on above: Performed By: #### C VDTBH #### [facility] [address] [place] [address] Dr. Ramses Dumas Escherichia coli Not detected Normal NOT DETECTED [facility] Comment on above: Performed By: #### C VDTBH #### [facility] [address] [place] [address] Dr. Ramses Dumas H. influenzae Not detected Normal NOT DETECTED [facility] Comment on above: Performed By: #### C VDTBH #### [facility] [address] [place] [address] Dr. Ramses Dumas IMP Resistant Gene Not Applicable Normal NOT DETECTED [facility] Comment on above: Performed By: #### C VDTBH #### [facility] [address] [place] [address] Dr. Ramses Dumas K. oxytoca Not detected Normal NOT DETECTED [facility] Comment on above: Performed By: #### C VDTBH #### [facility] [address] [place] [address] Dr. Ramses Dumas K. pneumoniae Not detected Normal NOT DETECTED [facility] Comment on above: Performed By: #### C VDTBH #### [facility] [address] [place] [address] Dr. Ramses Dumas Klebsiella aerogenes Not detected Normal NOT DETECTED [facility] Comment on above: Performed By: #### C VDTBH #### [facility] [address] [place] [address] Dr. Ramses Dumas KPC Resistant Gene Not detected Normal NOT DETECTED [facility] Comment on above: Performed By: #### C VDTBH #### [facility] [address] [place] [address] Dr. Ramses Dumas List. monocytogenes Not detected Normal NOT DETECTED [facility] Comment on above: Performed By: #### C VDTBH #### [facility] [address] [place] [address] Dr. Ramses Dumas Mcr-1 Resistant Gene Not Applicable Normal NOT DETECTE D [facility] Comment on above: Performed By: #### C VDTBH #### [facility] [address] [place] [address] Dr. Ramses Dumas mecA/C Not Applicable Normal NOT DETECTED [facility] Comment on above: Performed By: #### C VDTBH #### [facility] [address] [place] [address] Dr. Ramses Dumas mecA/C MREJ Not Applicable Normal NOT DETECTED [facility] Comment on above: Performed By: #### C VDTBH #### [facility] [address] [place] [address] Dr. Ramses Dumas N. meningitidis Not detected Normal NOT DETECTED The [facility] Comment on above: Performed By: #### C VDTBH #### [facility] [address] [place] [address] Dr. Ramses Dumas NDM Resistant Gene Not Applicable Normal NOT DETECTED [facility] Comment on above: Performed By: #### C VDTBH #### [facility] [address] [place] [address] Dr. Ramses Dumas Oxa-48-like Not Applicable Normal NOT DETECTED [facility] Comment on above: Performed By: #### C VDTBH #### [facility] [address] [place] [address] Dr. Ramses Dumas Proteus Not detected Normal NOT DETECTED The [facility] Comment on above: Performed By: #### C VDTBH #### [facility] [address] [place] [address] Dr. Ramses Dumas Pseud. aeruginosa Not detected Normal NOT DETECTED [facility] Comment on above: Performed By: #### C VDTBH #### [facility] [address] [place] [address] Dr. Ramses Dumas S. maltophilia Not detected Normal NOT DETECTED The [facility] Comment on above: Performed By: #### C VDTBH #### [facility] [address] [place] [address] Dr. Ramses Dumas Salmonella Not detected Normal NOT DETECTED [facility] Comment on above: Performed By: #### C VDTBH #### [facility] [address] [place] [address] Dr. Ramses Dumas Seratia marcescens Not detected Normal NOT DETECTED [facility] Comment on above: Performed By: #### C VDTBH #### [facility] [address] [place] [address] Dr. Ramses Dumas Site: unknown/not given Normal [facility] Comment on above: Performed By: #### C VDTBH #### [facility] [address] [place] [address] Dr. Ramses Dumas Staph. aureus Not detected Normal NOT DETECTED [facility] Comment on above: Performed By: #### C VDTBH #### [facility] [address] [place] [address] Dr. Ramses Dumas Staph. epidermidis Not detected Normal NOT DETECTED [facility] Comment on above: Performed By: #### C VDTBH #### [facility] [address] [place] [address] Dr. Ramses Dumas Staph. lugdunensis Not detected Normal NOT DETECTED [facility] Comment on above: Performed By: #### C VDTBH #### [facility] [address] [place] [address] Dr. Ramses uDmas Staphylococcus Not detected Normal NOT DETECTED [facility] Comment on above: Performed By: #### C VDTBH #### [facility] [address] [place] [address] Dr. Ramses Dumas Strep. agalactiae Detected Critically abnormal NOT DETECTED [facility] Comment on above: Performed By: #### C VDTBH #### [facility] [address] [place] [address] Dr. Ramses Dumas Strep. pneumoniae Not detected Normal NOT DETECTED [facility] Comment on above: Performed By: #### C VDTBH #### [facility] [address] [place] [address] Dr. Ramses Dumas Strep. pyogenes Not detected Normal NOT DETECTED [facility] Comment on above: Performed By: #### C VDTBH #### [facility] [address] [place] [address] Dr. Ramses Dumas Streptococcus Detected Critically abnormal NOT DETECTED [facility] Comment on above: Performed By: #### C VDTBH #### [facility] [address] [place] [address] Dr. Ramses Dumas Efrain/B Resist. Gene Not detected Normal NOT DETECTED [facility] Comment on above: Performed By: #### C VDTBH #### [facility] [address] [place] [address] Dr. Ramses Dumas VIM Resistant Gene Not Applicable Normal NOT DETECTED [facility] Comment on above: Performed By: #### C VDTBH #### [facility] [address] [place] [address] Dr. Ramses Dumas CBC AUTO DIFFon 08-22-2022 BASO # 0.1 103/ul Normal 0.0-0.1 [facility] Comment on above: Performed By: #### U KJ 24 #### [facility] [address] [address] [address] Ramses Dumas Basophils/100 WBC (Bld) 0.7 % Normal 0.2-2.0 [facility] Comment on above: Performed By: #### U KJ 24 #### [facility] [address] [address] [address] Ramses Dumas EO # 0.1 103/ul Normal 0.0-0.7 [facility] Comment on above: Performed By: #### U KJ 24 #### [facility] [address] [place] [address] Dr. Ramses Dumas Eosinophils/100 WBC (Bld) 1.7 % Normal 0.9-7.0 [facility] Comment on above: Performed By: #### U KJ 24 #### [facility] [address] [place] [address] Dr. Ramses Dumas Erythrocyte distribution width (RBC) [Ratio] 13.2 % Normal 11.0-15.0 [facility] Comment on above: Performed By: #### U KJ 24 #### [facility] [address] [place] [address] Dr. Ramses Dumas Hematocrit (Bld) [Volume fraction] 39.8 % Normal 36.0-48.0 [facility] Comment on above: Performed By: #### U KJ 24 #### [facility] [address] [place] [address] Dr. Ramses Dumas Hemoglobin (Bld) [Mass/Vol] 12.9 g/dL Normal 12.0-16.0 [facility] Comment on above: Performed By: #### U KJ 24 #### [facility] [address] [place] [address] Dr. Ramses Dumas IG # 0.02 10e3/ul Normal 0.00-0.03 [facility] Comment on above: Performed By: #### U KJ 24 #### [facility] [address] [place] [address] Dr. Ramses Dumas IG % 0.2 % Normal 0.0-0.5 [facility] Comment on above: Performed By: #### U KJ 24 #### [facility] [address] [address] [address] Ramses Dumas LYMPH # 3.2 103/ul Normal 1.2-3.8 [facility] Comment on above: Performed By: #### U KJ 24 #### [facility] [address] [address] [address] Ramses Dumas Lymphocytes/100 WBC (Bld) 40.0 % Normal 20.5-60.0 [facility] Comment on above: Performed By: #### U KJ 24 #### [facility] [address] [address] [address] Ramses Dumas MANUAL DIFF REQ NO Normal [facility] Comment on above: Performed By: #### U KJ 24 #### [facility] [address] [place] [address] Dr. Ramses Dumas MCH (RBC) [Entitic mass] 26.6 pg Critically low 26.7-34.0 [facility] Comment on above: Performed By: #### U KJ 24 #### [facility] [address] [place] [address] Dr. Ramses Dumas MCHC (RBC) [Mass/Vol] 32.4 g/dL Normal 29.9-35.2 [facility] Comment on above: Performed By: #### U KJ 24 #### [facility] [address] [place] [address] Dr. Ramses Dumas MCV (RBC) [Entitic vol] 82.1 fL Normal 81.0-99.0 [facility] Comment on above: Performed By: #### U KJ 24 #### [facility] [address] [place] [address] Dr. Ramses Dumas MONO # 0.6 103/ul Normal 0.3-0.8 [facility] Comment on above: Performed By: #### U KJ 24 #### [facility] [address] [place] [address] Dr. Ramses Dumas Monocytes/100 WBC (Bld) 7.5 % Normal 1.7-12.0 [facility] Comment on above: Performed By: #### U KJ 24 #### [facility] [address] [address] [address] Ramses Dumas NEUT # 4.0 103/ul Normal 1.4-6.5 [facility] Comment on above: Performed By: #### U KJ 24 #### [facility] [address] [address] [address] Ramses Dumas Neutrophils/100 WBC (Bld) 49.9 % Normal 43.0-75.0 [facility] Comment on above: Performed By: #### U KJ 24 #### [facility] [address] [address] [address] Ramses Dumas Platelet mean volume (Bld) [Entitic vol] 9.3 fL Critically low 9.5-13.5 [facility] Comment on above: Performed By: #### U KJ 24 #### [facility] [address] [place] [address] Dr. Ramses Dumas PLT 354 103/ul Normal 150-450 [facility] Comment on above: Performed By: #### U KJ 24 #### [facility] [address] [address] [address] Ramses Dumas RBC 4.85 106/ul Normal 4.20-5.40 [facility] Comment on above: Performed By: #### U KJ 24 #### [facility] [address] [place] [address] Dr. Ramses Dumas WBC 8.1 103/ul Normal 4.0-11.0 [facility] Comment on above: Performed By: #### U KJ 24 #### [facility] [address] [place] [address] ABD/PELVIS WO CONon [...] KESHIA IRIZARRY Date: 2022-08-22 07:04 Normal [facility] Covid-19 PCR (CVDTB)on SARS-CoV-2 (COVID-19) RNA FRANCESCA+probe Ql (Unsp spec) Not detected Normal NOT DETECTED [facility] Comment on above: Result Comment: When [...] for this test is supported by the [place] of Health and Human Service's declaration that [...] longer be used). Performed By: #### C #### [facility] [address] [place] [address] Dr. Ramses Dumas ER URINE PROFILEon 2 Bilirubin Ql (U) Negative Normal NEGATIVE [facility] Comment on above: Performed By: #### U RCX #### [facility] [address] [place] [address] Dr. Ramses Dumas Clarity (U) CLEAR Normal CLEAR [facility] Comment on above: Performed By: #### U RCX #### [facility] [address] [place] [address] Dr. Ramses Dumas Color (U) LT. YELLOW Normal YELLOW [facility] Comment on above: Performed By: #### U RCX #### [facility] [address] [place] [address] Dr. Ramses DELEON A micrscopic examination will be performed if indicated. Normal [facility] Comment on above: Performed By: #### U RCX #### [facility] [address] [place] [address] Dr. Ramses Dumas Glucose Ql (U) Negative Normal NEGATIVE [facility] Comment on above: Performed By: #### U RCX #### [facility] [address] [place] [address] Dr. Ramses Dumas Hemoglobin Ql (U) SMALL Abnormal NEGATIVE [facility] Comment on above: Performed By: #### U RCX #### [facility] [address] [place] [address] Dr. Ramses Dumas Ketones Ql (U) Negative Normal NEGATIVE [facility] Comment on above: Performed By: #### U RCX #### [facility] [address] [place] [address] Dr. Ramses Dumas LEUKOCYTES SMALL Abnormal NEGATIVE [facility] Comment on above: Performed By: #### U RCX #### [facility] [address] [place] [address] Dr. Ramsse Dumas Nitrite Ql (U) Negative Normal NEGATIVE [facility] Comment on above: Performed By: #### U RCX #### [facility] [address] [place] [address] Dr. Ramses Dumas pH (U) 7.0 [pH] Normal 5-9 [facility] Comment on above: Performed By: #### U RCX #### [facility] [address] [place] [address] Dr. Ramses Dumas Protein (U) [Mass/Vol] 30 mg/dL Abnormal NEGAT CHRIS/ TRACE [facility] Comment on above: Performed By: #### U RCX #### [facility] [address] [place] [address] Dr. Ramses Dumas SPEC GRAVITY 1.020 Normal 1.005-<=1.[address] [facility] Comment on above: Performed By: #### U RCX #### [facility] [address] [place] [address] Dr. Ramses Dumas UR MICRO IND INDICATED Normal [facility] Comment on above: Performed By: #### U RCX #### [facility] [address] [place] [address] Dr. Ramses Dumas Urobilinogen Qn (U) 0.2 {Lucero'U}/dL Normal 0.2 - 1. 0 [facility] Comment on above: Performed By: #### U RCX #### [facility] [address] [place] [address] Dr. Ramses Dumas LACTATE/LACTIC ACIDon 2021 Lactate [Moles/Vol] 2.3 mmol/L Critically high 0.4-1.9 [facility] Comment on above: Performed By: #### U RCX #### [facility] [address] [place] [address] Dr. Ramses Dumas URon 08-22-2022 , QUAL Negative Normal NEGATIVE [facility] Comment on above: Performed By: #### U RCX #### [facility] [address] [place] [address] Dr. Ramses Dumas PROF 14(COMP METB)on 022 Albumin [Mass/Vol] 3.5 g/dL Normal 3.4-5.0 [facility] Comment on above: Performed By: #### U RCX #### [facility] [address] [place] [address] Dr. Ramses Dumas Albumin/Globulin [Mass ratio] 0.9 {ratio} Normal [facility] Comment on above: Performed By: #### U RCX #### [facility] [address] [place] [address] Dr. Ramses Dumas ALP [Catalytic activity/Vol] 92 U/L Normal 46-116 [facility] Comment on above: Performed By: #### U RCX #### [facility] [address] [address] [address] Ramses Dumas ALT [Catalytic activity/Vol] 139 U/L Critically high 14-59 [facility] Comment on above: Performed By: #### U RCX #### [facility] [address] [place] [address] Dr. Ramses Dumas Anion gap [Moles/Vol] 10.2 mmol/L Normal [facility] Comment on above: Performed By: #### U RCX #### [facility] [address] [place] [address] Dr. Ramses Dumas AST [Catalytic activity/Vol] 112 U/L Critically high 15-37 [facility] Comment on above: Performed By: #### U RCX #### [facility] [address] [place] [address] Dr. Ramses Dumas Bilirubin [Mass/Vol] 0.2 mg/dL Normal 0.2-1.0 [facility] Comment on above: Performed By: #### U RCX #### [facility] [address] [place] [address] Dr. Ramses Dumas Calcium [Mass/Vol] 8.8 mg/dL Normal 8.5-10.1 [facility] Comment on above: Performed By: #### U RCX #### [facility] [address] [place] [address] Dr. Ramses Dumas Chloride [Moles/Vol] 105 mmol/L Normal 98-107 [facility] Comment on above: Performed By: #### U RCX #### [facility] [address] [place] [address] Dr. Ramses Dumas CO2 [Moles/Vol] 26.3 mmol/L Normal 21.0-32.0 [facility] Comment on above: Performed By: #### U RCX #### [facility] [address] [address] [address] Ramses Dumas Creatinine [Mass/Vol] 0.95 mg/dL Normal 0.55-1.02 [facility] Comment on above: Performed By: #### U RCX #### [facility] [address] [address] [address] Ramses Dumas EGFR-AF MARSHALLESE >60 Normal >=60 [facility] Comment on above: Performed By: #### U RCX #### [facility] [address] [place] [address] Dr. Ramses Dumas EGFR-NON AF MARSHALLESE >60 Normal >=60 [facility] Comment on above: Performed By: #### U RCX #### [facility] [address] [place] [address] Dr. Ramses Dumas Globulin (S) [Mass/Vol] 3.9 g/dL Normal [facility] Comment on above: Performed By: #### U RCX #### [facility] [address] [place] [address] Dr. Ramses Dumas Glucose [Mass/Vol] 137 mg/dL Critically high 74-106 T [facility] Comment on above: Performed By: #### U RCX #### [facility] [address] [place] [address] Dr. Ramses Dumas Potassium [Moles/Vol] 3.5 mmol/L Normal 3.5-5.1 [facility] Comment on above: Performed By: #### U RCX #### [facility] [address] [address] [address] Ramses Dumas Protein [Mass/Vol] 7.4 g/dL Normal 6.4-8.2 [facility] Comment on above: Performed By: #### U RCX #### [facility] [address] [place] [address] Dr. Ramses Dumas Sodium [Moles/Vol] 138 mmol/L Normal 136-145 [facility] Comment on above: Performed By: #### U RCX #### [facility] [address] [address] [address] Ramses Dumas Urea nitrogen [Mass/Vol] 11.0 mg/dL Normal 7.0-18.0 [facility] Comment on above: Performed By: #### U RCX #### [facility] [address] [place] [address] Dr. Ramses Dumas Urea nitrogen/Creatinine [Mass ratio] 11.6 mg/mg Normal [facility] Comment on above: Performed By: #### U RCX #### [facility] [address] [place] [address] Dr. Ramses Dumas URINE MICROSCOPIC ONLYon BACTERIA LARGE Abnormal NONE SEEN [facility] Comment on above: Performed By: #### U RCX #### [facility] [address] [place] [address] Dr. Ramses Dumas Bacteria identified Cx Nom (U) CX ALREADY ORDERED Normal [facility] Comment on above: Performed By: #### U RCX #### [facility] [address] [place] [address] Dr. Ramses Dumas CAST NONE SEEN Normal NONE SEEN [facility] Comment on above: Performed By: #### U RCX #### [facility] [address] [place] [address] Dr. Ramses Dumas Crystals LM Nom (Urine sed) NONE SEEN Normal NONE SEEN [facility] Comment on above: Performed By: #### U RCX #### [facility] [address] [place] [address] Dr. Ramses Dumas Epithelial cells LM Ql (Urine sed) MANY Abnormal NONE SEEN /RARE [facility] Comment on above: Performed By: #### U RCX #### [facility] [address] [place] [address] Dr. Ramses Dumas MUCOUS NONE SEEN Normal NONE SEEN [facility] Comment on above: Performed By: #### U RCX #### [facility] [address] [place] [address] Dr. Ramses Dumas RBC 5-10 Abnormal 0-2 [facility] Comment on above: Performed By: #### U RCX #### [facility] [address] [place] [address] Dr. Ramses Dumas WBC 50-75 Abnormal NONE SEEN [facility] Comment on above: Performed By: #### U RCX #### [facility] [address] [place] [address] Dr. Ramses Dumas CULTURE URINEon 08-15-2022 CULTURE [...] F Tetracycline >=16 R F Normal [facility] Comment on above: Performed By: #### U RCX #### [facility] [address] [place] [address] Dr. Ramses Dumas ACETAMINOPHENon 08-13-2022 Acetaminophen [Mass/Vol] ug/mL Critically low 10.0-30.0 [facility] Comment on above: Performed By: #### U RCX #### [facility] [address] [place] [address] Dr. Ramses Dumas CBC AUTO DIFFon 08-13-2022 BASO # 0.1 103/ul Normal 0.0-0.1 [facility] Comment on above: Performed By: #### C VDTBH #### [facility] [address] [place] [address] Dr. Ramses Dumas Basophils/100 WBC (Bld) 0.8 % Normal 0.2-2.0 [facility] Comment on above: Performed By: #### C VDTBH #### [facility] [address] [place] [address] Dr. Ramses Dumas EO # 0.1 103/ul Normal 0.0-0.7 [facility] Comment on above: Performed By: #### C VDTBH #### [facility] [address] [place] [address] Dr. Ramses Dumas Eosinophils/100 WBC (Bld) 1.6 % Normal 0.9-7.0 [facility] Comment on above: Performed By: #### C VDTBH #### [facility] [address] [place] [address] Dr. Ramses Dumas Erythrocyte distribution width (RBC) [Ratio] 13.3 % Normal 11.0-15.0 [facility] Comment on above: Performed By: #### C VDTBH #### [facility] [address] [place] [address] Dr. Ramses Dumas Hematocrit (Bld) [Volume fraction] 40.6 % Normal 36.0-48.0 [facility] Comment on above: Performed By: #### C VDTBH #### [facility] [address] [place] [address] Dr. Ramses Dumas Hemoglobin (Bld) [Mass/Vol] 13.2 g/dL Normal 12.0-16.0 [facility] Comment on above: Performed By: #### C VDTBH #### [facility] [address] [place] [address] Dr. Ramses Dumas IG # 0.01 10e3/ul Normal 0.00-0.03 [facility] Comment on above: Performed By: #### C VDTBH #### [facility] [address] [place] [address] Dr. Ramses Dumas IG % 0.2 % Normal 0.0-0.5 [facility] Comment on above: Performed By: #### C VDTBH #### [facility] [address] [place] [address] Dr. Ramses Dumas LYMPH # 2.4 103/ul Normal 1.2-3.8 [facility] Comment on above: Performed By: #### C VDTBH #### [facility] [address] [place] [address] Dr. Ramses Dumas Lymphocytes/100 WBC (Bld) 37.7 % Normal 20.5-60.0 [facility] Comment on above: Performed By: #### C VDTBH #### [facility] [address] [place] [address] Dr. Ramses Dumas MANUAL DIFF REQ NO Normal [facility] Comment on above: Performed By: #### C VDTBH #### [facility] [address] [place] [address] Dr. Ramses Dumas MCH (RBC) [Entitic mass] 26.7 pg Normal 26.7-34.0 [facility] Comment on above: Performed By: #### C VDTBH #### [facility] [address] [place] [address] Dr. Ramses Dumas MCHC (RBC) [Mass/Vol] 32.5 g/dL Normal 29.9-35.2 [facility] Comment on above: Performed By: #### C VDTBH #### [facility] [address] [place] [address] Dr. Ramses Dumas MCV (RBC) [Entitic vol] 82.0 fL Normal 81.0-99.0 [facility] Comment on above: Performed By: #### C VDTBH #### [facility] [address] [place] [address] Dr. Ramses Dumas MONO # 0.6 103/ul Normal 0.3-0.8 [facility] Comment on above: Performed By: #### C VDTBH #### [facility] [address] [place] [address] Dr. Ramses Dumas Monocytes/100 WBC (Bld) 8.6 % Normal 1.7-12.0 [facility] Comment on above: Performed By: #### C VDTBH #### [facility] [address] [place] [address] Dr. Ramses Dumas NEUT # 3.3 103/ul Normal 1.4-6.5 [facility] Comment on above: Performed By: #### C VDTBH #### [facility] [address] [place] [address] Dr. Ramses Dumas Neutrophils/100 WBC (Bld) 51.1 % Normal 43.0-75.0 [facility] Comment on above: Performed By: #### C VDTBH #### [facility] [address] [place] [address] Dr. Ramses Dumas Platelet mean volume (Bld) [Entitic vol] 8.7 fL Critically low 9.5-13.5 [facility] Comment on above: Performed By: #### C VDTBH #### [facility] [address] [place] [address] Dr. Ramses Dumas PLT 409 103/ul Normal 150-450 [facility] Comment on above: Performed By: #### C VDTBH #### [facility] [address] [place] [address] Dr. Ramses Dumas RBC 4.95 106/ul Normal 4.20-5.40 [facility] Comment on above: Performed By: #### C VDTBH #### [facility] [address] [place] [address] Dr. Ramses Dumas WBC 6.4 103/ul Normal 4.0-11.0 [facility] Comment on above: Performed By: #### C VDTBH #### [facility] [address] [place] [address] Dr. Ramses Dumas Covid-19 PCR ([facility])on 07-20 SARS-CoV-2 (COVID-19) RNA FRANCESCA+probe Ql (Unsp spec) Not detected Normal NOT DETECTED [facility] Comment on above: Result Comment: When [...] for this test is supported by the [place] of Health and Human Service's declaration that [...] used). Performed By: #### C VDTBH #### [facility] [address] [place] [address] Dr. Ramses Dumas DRUG SCREEN RAPID (URINE)on 08-13-2022 AMP Negative Normal NEGATIVE [facility] Comment on above: Performed By: #### C BC #### [facility] [address] [place] [address] Dr. Ramses Dumas BAR Negative Normal NEGATIVE [facility] Comment on above: Performed By: #### C BC #### [facility] [address] [place] [address] Dr. Ramses Dumas BUP Negative Normal NEGATIVE [facility] Comment on above: Performed By: #### C BC #### [facility] [address] [place] [address] Dr. Ramses Dumas BZO Negative Normal NEGATIVE [facility] Comment on above: Performed By: #### C BC #### [facility] [address] [place] [address] Dr. Ramses Dumas ODILIA Negative Normal NEGATIVE [facility] Comment on above: Performed By: #### C BC #### [facility] [address] [place] [address] Dr. Ramses Dumas CUT-OFFS SEE BELOW Normal [facility] Comment on above: Result [...] ng/mL Performed By: #### C BC #### [facility] [address] [place] [address] Dr. Ramses Dumas DRUG CUT HEADER DRUG CLASS TEST SYST EM CUT-OFF CONCENTRATIONS ARE FOLLOWS: Normal [facility] Comment on above: Performed By: #### C BC #### [facility] [address] [place] [address] Dr. Ramses Dumas mAMP Negative Normal NEGATIVE [facility] Comment on above: Performed By: #### C BC #### [facility] [address] [address] [address] Ramses Dumas MTD Negative Normal NEGATIVE [facility] Comment on above: Performed By: #### C BC #### [facility] [address] [place] [address] Dr. Ramses Dumas OPI Negative Normal NEGATIVE [facility] Comment on above: Performed By: #### C BC #### [facility] [address] [place] [address] Dr. Ramses Dumas OXY Negative Normal NEGATIVE [facility] Comment on above: Performed By: #### C BC #### [facility] [address] [place] [address] Dr. Ramses Dumas PCP Negative Normal NEGATIVE [facility] Comment on above: Performed By: #### C BC #### [facility] [address] [place] [address] Dr. Ramses Dumas PPX Negative Normal NEGATIVE [facility] Comment on above: Performed By: #### C BC #### [facility] [address] [place] [address] Dr. Ramses Dumsa TCA Negative Normal NEGATIVE [facility] Comment on above: Performed By: #### C BC #### [facility] [address] [place] [address] Dr. Ramses Dumas THC Negative Normal NEGATIVE [facility] Comment on above: Performed By: #### C BC #### [facility] [address] [place] [address] Dr. Ramses Dumas ER URINE PROFILEon 2 Bilirubin Ql (U) Negative Normal NEGATIVE [facility] Comment on above: Performed By: #### C BC #### [facility] [address] [place] [address] Dr. Ramses Dumas Clarity (U) CLEAR Normal CLEAR [facility] Comment on above: Performed By: #### C BC #### [facility] [address] [place] [address] Dr. Ramses Dumas Color (U) LT. YELLOW Normal YELLOW [facility] Comment on above: Performed By: #### C BC #### [facility] [address] [place] [address] Dr. Ramses DELEON A micrscopic examination will be performed if indicated. Normal [facility] Comment on above: Performed By: #### C BC #### [facility] [address] [place] [address] Dr. Ramses Dumas Glucose Ql (U) Negative Normal NEGATIVE [facility] Comment on above: Performed By: #### C BC #### [facility] [address] [place] [address] Dr. Ramses Dumas Hemoglobin Ql (U) LARGE Abnormal NEGATIVE [facility] Comment on above: Performed By: #### C BC #### [facility] [address] [place] [address] Dr. Ramses Dumas Ketones Ql (U) Negative Normal NEGATIVE [facility] Comment on above: Performed By: #### C BC #### [facility] [address] [place] [address] Dr. Ramses Dumas LEUKOCYTES LARGE Abnormal NEGATIVE [facility] Comment on above: Performed By: #### C BC #### [facility] [address] [place] [address] Dr. Ramses Dumas Nitrite Ql (U) Positive Abnormal NEGATIVE [facility] Comment on above: Performed By: #### C BC #### [facility] [address] [place] [address] Dr. Ramses Dumas pH (U) 6.0 [pH] Normal 5-9 [facility] Comment on above: Performed By: #### C BC #### [facility] [address] [place] [address] Dr. Ramses Dumas Protein (U) [Mass/Vol] 30 mg/dL Abnormal NEGAT CHRIS/ TRACE [facility] Comment on above: Performed By: #### C BC #### [facility] [address] [place] [address] Dr. Ramses Dumas SPEC GRAVITY >=1.030 Abnormal 1.005-<=1.[address] [facility] Comment on above: Performed By: #### C BC #### [facility] [address] [place] [address] Dr. Ramses Dumas UR MICRO IND INDICATED Normal [facility] Comment on above: Performed By: #### C BC #### [facility] [address] [place] [address] Dr. Ramses Dumas Urobilinogen Qn (U) 0.2 {Lucero'U}/dL Normal 0.2 - 1. 0 [facility] Comment on above: Performed By: #### C BC #### [facility] [address] [place] [address] Dr. Ramses Dumas ETHANOL (BLD ALC)on 08-13-20 22 ALC NOTE NOTE: 80 mg/dl is th e legal limit for a blood alcohol level Normal [facility] Comment on above: Performed By: #### B LDCX2 #### [facility] [address] [place] [address] Dr. Ramses Dumas Ethanol [Mass/Vol] mg/dL Normal [facility] Comment on above: Performed By: #### B LDCX2 #### [facility] [address] [place] [address] Dr. Ramses Dumas URon 08-13-2022 , QUAL Negative Normal NEGATIVE [facility] Comment on above: Performed By: #### C BC #### [facility] [address] [place] [address] Dr. Ramses Dumas PROF 14(COMP METB)on 022 Albumin [Mass/Vol] 3.8 g/dL Normal 3.4-5.0 [facility] Comment on above: Performed By: #### U RCX #### [facility] [address] [place], [place] [id number] Dr. Ramses Dumas Albumin/Globulin [Mass ratio] 0.9 {ratio} Normal [facility] Comment on above: Performed By: #### U RCX #### [facility] [address] [place] [address] Dr. Ramses Dumas ALP [Catalytic activity/Vol] 82 U/L Normal 46-116 [facility] Comment on above: Performed By: #### U RCX #### [facility] [address] [address] [address] Ramses Dumas ALT [Catalytic activity/Vol] 41 U/L Normal 14-59 [facility] Comment on above: Performed By: #### U RCX #### [facility] [address] [place] [address] Dr. Ramses Dumas Anion gap [Moles/Vol] 9.3 mmol/L Normal [facility] Comment on above: Performed By: #### U RCX #### [facility] [address] [place] [address] Dr. Ramses Dumas AST [Catalytic activity/Vol] 21 U/L Normal 15-37 [facility] Comment on above: Performed By: #### U RCX #### [facility] [address] [place] [address] Dr. Ramses Dumas Bilirubin [Mass/Vol] 0.3 mg/dL Normal 0.2-1.0 [facility] Comment on above: Performed By: #### U RCX #### [facility] [address] [place] [address] Dr. Ramses Dumas Calcium [Mass/Vol] 8.9 mg/dL Normal 8.5-10.1 [facility] Comment on above: Performed By: #### U RCX #### [facility] [address] [place] [address] Dr. Ramses Dumas Chloride [Moles/Vol] 105 mmol/L Normal 98-107 [facility] Comment on above: Performed By: #### U RCX #### [facility] [address] [place] [address] Dr. Ramses Dumas CO2 [Moles/Vol] 28.5 mmol/L Normal 21.0-32.0 [facility] Comment on above: Performed By: #### U RCX #### [facility] [address] [address] [address] Ramses Dumas Creatinine [Mass/Vol] 0.81 mg/dL Normal 0.55-1.02 [facility] Comment on above: Performed By: #### U RCX #### [facility] [address] [address] [address] Ramses Dumas EGFR-AF MARSHALLESE >60 Normal >=60 [facility] Comment on above: Performed By: #### U RCX #### [facility] [address] [address] [address] Ramses Dumas EGFR-NON AF MARSHALLESE >60 Normal >=60 [facility] Comment on above: Performed By: #### U RCX #### [facility] [address] [place] [address] Dr. Ramses Dumas Globulin (S) [Mass/Vol] 4.1 g/dL Normal [facility] Comment on above: Performed By: #### U RCX #### [facility] [address] [address] [address] Ramses Dumas Glucose [Mass/Vol] 100 mg/dL Normal 74-106 [facility] Comment on above: Performed By: #### U RCX #### [facility] [address] [place] [address] Dr. Ramses Dumas Potassium [Moles/Vol] 3.8 mmol/L Normal 3.5-5.1 [facility] Comment on above: Performed By: #### U RCX #### [facility] [address] [address] [address] Ramses Dumas Protein [Mass/Vol] 7.9 g/dL Normal 6.4-8.2 [facility] Comment on above: Performed By: #### U RCX #### [facility] [address] [address] [address] Ramses Dumas Sodium [Moles/Vol] 139 mmol/L Normal 136-145 [facility] Comment on above: Performed By: #### U RCX #### [facility] [address] [address] [address] Ramses Dumas Urea nitrogen [Mass/Vol] 10.0 mg/dL Normal 7.0-18.0 [facility] Comment on above: Performed By: #### U RCX #### [facility] [address] [address] [address] Ramses Dumas Urea nitrogen/Creatinine [Mass ratio] 12.3 mg/mg Normal [facility] Comment on above: Performed By: #### U RCX #### [facility] [address] [place] [address] Dr. Ramses Dumas SALICYLATEon 08-13-2022 SALICYLATE <2.8 Normal <=19.9 [facility] Comment on above: Performed By: #### U RCX #### [facility] [address] [place] [address] Dr. Ramses Dumas URINE MICROSCOPIC ONLYon BACTERIA LARGE Abnormal NONE SEEN [facility] Comment on above: Performed By: #### C BC #### [facility] [address] [place] [address] Dr. Ramses Dumas Bacteria identified Cx Nom (U) INDICATED Normal [facility] Comment on above: Performed By: #### C BC #### [facility] [address] [place] [address] Dr. Ramses Dumas CA OX CRYSTALS RARE Normal [facility] Comment on above: Performed By: #### C BC #### [facility] [address] [place] [address] Dr. Ramses Dumas CAST NONE SEEN Normal NONE SEEN [facility] Comment on above: Performed By: #### C BC #### [facility] [address] [place] [address] Dr. Ramses Dumas Crystals LM Nom (Urine sed) SEEN Abnormal NONE SEEN [facility] Comment on above: Performed By: #### C BC #### [facility] [address] [place] [address] Dr. Ramses Dumas Epithelial cells LM Ql (Urine sed) MODERATE Abnormal NONE SEEN /RARE [facility] Comment on above: Performed By: #### C BC #### [facility] [address] [address] [address] Ramses Dumas MUCOUS NONE SEEN Normal NONE SEEN [facility] Comment on above: Performed By: #### C BC #### [facility] [address] [place] [address] Dr. Ramses Dumas RBC 10-20 Abnormal 0-2 [facility] Comment on above: Performed By: #### C BC #### [facility] [address] [place] [address] Dr. Ramses Dumas WBC 20-[address] [facility] Comment on above: Performed By: #### C BC #### [facility] [address] [place] [address] Dr. Ramses Dumas Pap IG,rfx Aptima HPV all pt hon 08-09-2022 . . Normal [facility] Comment on above: Performed By: #### C MP #### [facility] [address] [place] [address] Dr. Ramses Dumas DIAGNOSIS: Comment Abnormal [facility] Comment on above: Result Comment: EPIT HELIAL CELL ABNORMALITY. LOW GRADE SQUAMOUS INTRAEPITHELIAL LESION (LSIL). Performed By: #### C MP #### [facility] [address] [place] [address] Dr. Ramses Dumas Electronically signed by: Comment Normal [facility] Comment on above: Result Comment: Arnaud Joseph MD, Pathologist Performed By: #### C MP #### [facility] [address] [place] [address] Dr. Ramses Dumas HPV Aptima Negative Normal Negative [facility] Comment on above: Result Comment: This nucleic acid amplification test detects fourteen high-risk HPV types (16,18,31,33,35,39,45,51,52,56,58,59,66,68) without differentiation. Performed By: #### C MP #### [facility] [address] [place] [address] Dr. Ramses Dumas Methodology: Comment Normal [facility] Comment on above: Result Comment: This liquid based ThinPrep(R) pap test was screened with the use of an image guided system. Performed By: #### C MP #### [facility] [address] [address] [address] Ramses Dumas Note: Comment Normal [facility] Comment on above: Result Comment: The Pap smear is a screening test designed to aid in the detection of premalignant and malignant conditions of the uterine cervix. It is not a diagnostic procedure and should not be used as the sole means of detecting cervical cancer. Both false-positive and false-negative reports do occur. . Performed By: #### C MP #### [facility] [address], [place] [address] Dr. Ramses Dumas Pathologist Provided ICD10 Comment Normal [facility] Comment on above: Result Comment: [id number] Performed By: #### C MP #### [facility] [id number] Ramses Dumas Performed by: Comment Normal [facility] Comment on above: Result Comment: Gail Ruano, [place] (ASCP) Performed By: #### C MP #### [facility] [address] [place], [place] [address] Dr. Ramses Dumas Reflex Criteria: Comment Normal [facility] Comment on above: Result Comment: See below for HPV testing results. . Performed By: #### C MP #### [facility] [address], [place] [address] Dr. Ramses Dumas Specimen adequacy: Comment Normal [facility] Comment on above: Result Comment: Sati sfactory for evaluation. Endocervical and/or squamous metaplastic cells (endocervical component) are present. Performed By: #### C MP #### [facility] [address], [place] [address] Dr. Ramses Dumas Social History Date Type Detail Facility Start: 08-20-2021 End: 04-09-2024 Tobacco smoking status Never smoked tobacco (finding) [facility] Start: 1990 Sex Assigned At Not on file [facility] Start: 1990 Sex Assigned At Female F [facility] Tobacco smoking status NHIS Tobacco smoking consumption unknown [facility] Tobacco smoking status Never [facility] Sex Assigned At Female [facility] Vital Signs Date Time Vital Sign Value Performing Clinician Ronnie perez 04-10-2024 07:30-0400 Body temperature 98 [degF] MD Domingo Das Work Phone: [facility] 04-10-2024 07:30-0400 Diastolic blood pressure 73 mm[Hg] MD Domingo Das Work Phone: [facility] 04-10-2024 07:30-0400 Heart rate 75 /min MD Domingo Das Work Phone: [facility] 04-10-2024 07:30-0400 Respiratory rate 16 /min MD Domingo Das Work Phone: [facility] 04-10-2024 07:30-0400 SaO2% (BldA) [Mass fraction] 100 % MD Domingo Das Work Phone: [facility] 04-10-2024 07:30-0400 Systolic blood pressure 123 mm[Hg] MD Domingo Das Work Phone: [facility] 04-08-2024 22:44-0400 Body height 167.64 cm MD Domingo Das Work Phone: [facility] 04-08-2024 22:44-0400 Body weight 86.58 kg MD Domingo Das Work Phone: [facility] 03-20-2023 10:30-0400 Blood Pressure Location Nona VILLA [facility] 03-20-2023 10:30-0400 Diastolic blood pressure 73 mm[Hg] Nona VILLA [facility] 03-20-2023 10:30-0400 Heart rate 80 /min Nona VILLA [facility] 03-20-2023 10:30-0400 Respiratory rate 16 /min Nona VILLA [facility] 03-20-2023 10:30-0400 Systolic blood pressure 128 mm[Hg] Nona VILLA [facility] Functional Status Date Assessment Result Facility 04-10-2024 Functional status Patient at Baseline [facility] Work Phone: 03-20-2023 Functional Status N/A [facility] Mental Status Date Assessment Result Facility 04-10-2024 Cognitive function Cognitive Sta tus Patient at Baseline [facility] Work Phone: Clinical Notes 07-03-2022 to 04-10-2024 Note Date & Type Note Facility 04-10-2024 Discharge summary Note Date/Time April 10, 2024 7:10am [facility] [address] [place] [address] Discharge Summary Signed Patient: Diana Barriga MR#: [id number] : 1990 Acct:[id number] Age/Sex: 33 / F Adm Date: 4 Loc: Room: [address] [place] [address]: Arnulfo Aviles MD Copies to: MD Domingo Tate MD~ Providers Date of Discharge: 04/10/24 Discharging Provider: Arnulfo Aviles Primary Care Provider: Domingo Das Consults: 04/08/24 22:58 Consult to Case Management Routine Comment: CM Reason for Consult: Abuse/Neglect Other and/or Abuse/Neglect [...] texted her stating that she is done. [facility] discussed case with ER doctor who pink [...] Dr. Fenton but wants to switch to [facility]. Along with this patient is in marriage counseling with her current and that today's session was not good. Patient stated she needs to be home to take care of her kids, the custody [place], and her marriage. Patient upset because she missed her son's play and has plans to take kids to [place] tomorrow. Patient denies any suicidal ideation denies hallucinations denies racing thoughts. Patient reports that there is no changes in her appetite or sleep. Patient reports that she feels fine. She has tried a lot of medications in the past and believes none of them have worked. He is going to [facility] for psych therapy. He wants to try [...] She has an appointment coming up with [facility]. She deniedrecent suicide attempts or self [...] Restriction Diet: Regular Instructions: Bipolar Disorder (DC), [facility] DC Instructions, Know your Meds [...] L, TSH 3rd Generation 2.01 Documented By: Arunlfo Aviles MD 4 0710 Signed By: <Electronically signed by Arnulfo Aviles MD> 04/10/24 0975 [facility] Work Phone: 1(590) 656-233706-22-2024 History and physical note Author Arnulfo ornelas [facility] April 09, 2024 9:09am Note Date/Time April 09, 2024 8:43 am [facility] [address] [place] [address] Psychiatry H&P Signed Patient: Diana Barriga MR#: [id number] : 1990 Acct:[id number] Age/Sex: 33 / F Adm Date: 4 Loc: Room: [address] [place] [address] Type: ADM IN Attending Dr: Arnulfo Aviles [...] Dr. Fenton but wants to switch to [facility]. Along with this patient is in marriage counseling with her current and that today's session was not good. Patient stated she needs to be home to take care of her kids, the custody [place], and her marriage. Patient upset because she missed her son's play and has plans to take kids to [place] tomorrow. Patient denies any suicidal ideation denies hallucinations denies racing thoughts. Patient reports that there is no changes in her appetite or sleep. Patient reports that she feels fine. She has tried a lot of medications in the past and believes none of them have worked. He is going to [facility] for psych therapy. He wants to try therapy before any medications. 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 Documented By: Arnulfo Aviles MD 4 [id number] Signed By: <Electronically signed by Arnulfo Aviles MD> 04/09/24 0909 [facility] Work Phone: 1(200) 592-927706-02-2023 Hospital Discharge instructions Follow Up Care 03/20/2023 11:51:58 With:IDALMIS BORDEN, Nona Turner, URL Address: [address] [place] [address] [place] [address]- When: Unknown [facility] 06-02-2023 Hospital Discharge instructions Patient Education [...] include: ?8 oz (237 mL) of milk, vznmfec-adjdpfhdrkow-vvtbl milk, and calcium- fortifiedfruit juice. Calcium-fortified means [...] ?Spinach (cooked), rhubarb, beets, sweet potatoes, and Burkinan chard. ?Peanuts. ?Potato chips, german fries, and baked potatoes with skin on. ?Nuts and nut products. ?Chocolate. If you regularly take a diuretic medicine, make sure to eat at least 1 or 2 servings of fruits or vegetables that are high in potassium each day. These include: ?Avocado. ?Banana. ?[place], prune, carrot, or tomato juice. ?Baked potato. [...] magnesium, fish oil, or vitamin B6. Take kmpu-tls-jelquvf and prescription medicines only as told by [...] Casseroles. Pizza. Lasagna. Frozen meals. Potato chips. Croatian fries. The items listed above may not [...] provider. Document Revised: 06/16/2022 Document Reviewed: 06/16/2022 [employer] Patient Education 2022 [employer]. Follow Up Care 12/26/2022 08:46:46 With:IDALMIS BORDEN, Nona Turner, URL Address: [facility] [address] , [place] [address]- When: Unknown [facility] 01-20-2023 NoteOPERATIVE NOTE OPERATION DATE: 11/07/2022 PROCEDURE: Mery endometrial ablation with LEEP. PREOPERATIVE DIAGNOSIS: Cervical dysplasia, menorrhagia. POSTOPERATIVE DIAGNOSIS: Cervical dysplasia, menorrhagia. ANESTHESIA: General. SURGEON: Jefferson Gibbs D.O. GENERAL DENTIST/OWNER: None. BLOOD LOSS: 50 mL. URINE OUTPUT: [...] taken to Recovery Room in stable condition.[id number] Hospital Discharge instructions Follow Up Care 09/25/2022 13:54:04 With:IDALMIS BORDEN, Nona Turner, URL Address: [address] [place], [place] [id number]- When: Unknown [facility] 12-01-2022 NoteOPERATIVE NOTE OPERATION DATE: 09/18/2022 PREOPERATIVE [...] usual fashion. I started by passing a 22-Croatian Olympus cystoscope per urethra and into the [...] and wheeled to PACU in stable condition.[facility] [id number] NoteHNO ID: [id number] Author: Daniel Santiago APRN.EDITOR INDEX Service: ? Author Type: Nurse Practitioner Type: Progress Notes Filed: 09/04/2022 7:46 AM Note Text: The patient did not show up for this appointment. The patient did not show up for this appointment.[id number] History of Present illness Narrative* Daniel Santiago APRN.EDITOR INDEX - 09/04/2022 7:40 AM EST The patient did not show up for this appointment. The patient did not show up for this appointment. [facility] NotePROCEDURE: XR ANKLE LT MIN 3 V COMPARISON: None. HISTORY: Sprain of calcaneofibular ligament FINDINGS: BONES:No fracture, acute abnormality, or significant arthropathy. SOFT TISSUES:Extensive lateral soft tissue swelling EFFUSION:None visible. OTHER: Negative. IMPRESSION: Lateral soft tissue swelling. No acute fracture Electronically authenticated by: GLEN GRAFF Date: 2022-07-03 07:09[facility] note Future Appointments Appointment Date:03/20/2023 10:15:00 AM Scheduled Provider:Nona VILLA MD Location:[facility] Appointment Type:URO Office Visit [facility] evaluation + Plan note Future Appointments Appointment Date:12/04/2023 09:45:00 AM Scheduled Provider:Nona VILLA MD Location:[facility] Appointment Type:URO Office Visit Diagnostic Tests Pending * Electrolyte Panel 03/20/23 [facility] evaluation note* Diagnosis NO SHOW- Primary documented in this encounter [facility] note* Diagnosis Onset Date Resolution Status Bipolar disorder [facility] Work Phone: Hospital course Narrative No data available for this section [facility] progress note No data available for this section [facility] Summary Purpose Family History No Family [...] or prosecute any alcohol or drug abuse patient.[facility] Reason for Visit (unrecogniz ed section and content) Reason Onset Date Comments No Show 09/04/2022 No show Care Teams (unrecognized sec tion and content) Osha Inspector Relationship Specialty Start Date End Date Domingo Das MD [address] [place] [address] Referring Family Medicine 09/01/22 Team Status: Active [...] section and content) DATE CREATED AUTHOR 09/06/2022 [facility] DATE CREATED AUTHOR AUTHOR'S ORGANIZ ATION 02/19/2023 [facility] [place] [facility] DATE CREATED AUTHOR AUTHOR'S ORGANIZ ATION 12/06/2023 [facility] DATE CREATED AUTHOR AUTHOR'S ORGANIZ ATION 12/19/2023 [facility] DATE CREATED AUTHOR AUTHOR'S ORGANIZ ATION 04/11/2024 [facility] FOR RECORDS PERTAINING TO PATIENTS [...] BE BASED ON THE PRIMARY CLINICAL RECORDS. [facility]. provides no warranty or guarantee of the accuracy or completeness of information in this document.
--- NOTE | 2024-05-03 00:09 | XR_ITS ---
The [address] [address] Patient Name: CORI BARRIGA MRN: [id number] date: 1990 Sex: F Assigned Patient Location: ER Current Patient Location: Accession/Order Number: [id number] Exam Date: 05/03/2024 01:25 Report Date: 05/03/2024 05:51 At the request of: CASSI MARKER Procedure: XR cervical spine 2-3V EXAM: XR cervical spine 2-3V, XR thoracic spine 3V HISTORY: neck pain COMPARISON: None. TECHNIQUE: Frontal and lateral views of the cervical spine and an open-mouth odontoid view were obtained. Frontal, lateral, and swimmer's views of the thoracic spine were obtained. FINDINGS: Cervical spine: The cervical spine is well-imaged from the craniocervical junction to the cervicothoracic junction on the lateral view. No acute fracture or subluxation is seen. There is reversal of the normal cervical lordosis. Otherwise, the vertebral elements are in anatomic alignment. The disc spaces are preserved. The prevertebral soft tissues are unremarkable .There is normal alignment of C1 on C2 on the open-mouth odontoid view. Dental amalgam is noted. The imaged lung apices are clear. Thoracic spine: Cholecystectomy clips are noted. No acute fracture or subluxation is seen. The vertebral body heights are preserved. The vertebral elements are in anatomic alignment. The imaged lungs are clear. XR/XR cervical spine 2-3V IMPRESSION: 1. No acute fracture or subluxation of the cervical or thoracic spine is seen. If there is concern for an occult injury, cross-sectional imaging is recommended. 2. Reversal of the normal cervical lordosis. Electronically authenticated by: Asia CALDWELL Date: 05/03/2024 05:51
--- NOTE | 2024-05-03 00:09 | XR_ITS ---
The [address] [address] Patient Name: CORI BARRIGA MRN: [id number] date: 1990 Sex: F Assigned Patient Location: ER Current Patient Location: Accession/Order Number: [id number] Exam Date: 05/03/2024 01:25 Report Date: 05/03/2024 05:51 At the request of: CASSI MARKER Procedure: XR thoracic spine 3V EXAM: XR cervical spine 2-3V, XR thoracic spine 3V HISTORY: neck pain COMPARISON: None. TECHNIQUE: Frontal and lateral views of the cervical spine and an open-mouth odontoid view were obtained. Frontal, lateral, and swimmer's views of the thoracic spine were obtained. FINDINGS: Cervical spine: The cervical spine is well-imaged from the craniocervical junction to the cervicothoracic junction on the lateral view. No acute fracture or subluxation is seen. There is reversal of the normal cervical lordosis. Otherwise, the vertebral elements are in anatomic alignment. The disc spaces are preserved. The prevertebral soft tissues are unremarkable .There is normal alignment of C1 on C2 on the open-mouth odontoid view. Dental amalgam is noted. The imaged lung apices are clear. Thoracic spine: Cholecystectomy clips are noted. No acute fracture or subluxation is seen. The vertebral body heights are preserved. The vertebral elements are in anatomic alignment. The imaged lungs are clear. XR/XR thoracic spine 3V IMPRESSION: 1. No acute fracture or subluxation of the cervical or thoracic spine is seen. If there is concern for an occult injury, cross-sectional imaging is recommended. 2. Reversal of the normal cervical lordosis. Electronically authenticated by: Asia CALDWELL Date: 05/03/2024 05:51
--- NOTE | 2024-05-03 00:13 | ED_ITS ---
HPI HPI - Back Pain/Injury General Chief Complaint: Back Pain/Injury Stated Complaint: BACK PAIN Time Seen by Provider: 05/02/24 23:17 Source: patient Mode of arrival: walk-in History of Present Illness HPI Narrative: This 33-year-old female who is well-known to this emergency department for complaints of flank pain and other pain related complaints presents for evaluation of neck and upper back pain. The patient states she had a migraine headache on Thursday. Since then the migraine headache has resolved but she has pain and tightness in her neck and upper back. She has no fever. She has no nuchal rigidity. She has no skin rash. She has been taking her jexe-jmo-xzysjnh medications at home without relief. She has no focal weakness numbness or tingling. She has no blurred vision slurred speech or confusion. Her headache has since resolved. She is not having any nausea or vomiting. Related Data Home Medications ?Medication ?Instructions ?Recorded ?Confirmed No Known Home Medications 05/02/24 05/02/24 Allergies Allergy/AdvReac Type Severity Reaction Status Date / Time No Known Drug Allergies Allergy Verified 04/20/24 22:45 Opioid HPI Opioid Management Most Recent Opioid Data: Last Pain Scale 8 04/21/24 15:05 Ur Phencyclidine Scrn Negative (NEGATIVE) 04/08/24 15:00 Review of Systems ROS Status of ROS 10 or more systems reviewed and unremark able except as noted in history and below PFSH [facility] Medical History (Updated 05/03/24 @ 05:31 by Ximena Maria MD) Anxiety and depression ?F41.9 - Anxiety disorder, unspecified (ICD-10) ?F32.A - Depression, unspecified (ICD-10) Kidney stones ?N20.0 - Calculus of kidney (ICD-10) Bipolar disorder ?F31.9 - Bipolar disorder, unspecified (ICD-10) Kidney stones ?N20.0 - Calculus of kidney (ICD-10) Surgical History (Updated 12/29/23 @ 08:54 by Chrissy Montilla) History of ultrasound guided needle biopsy ?Z98.890 - Other specified postprocedural states (ICD-10) H/O local excision of skin lesion ?Z98.890 - Other specified postprocedural states (ICD-10) S/P extracorporeal shock wave therapy (03/2023) ?Z98.890 - Other specified postprocedural states (ICD-10) History of wisdom tooth extraction ?K08.409 - Partial loss of teeth, unspecified cause, unspecified class (ICD- 10) H/O LEEP ?Z98.890 - Other specified postprocedural states (ICD-10) History of endometrial ablation ?Z98.890 - Other specified postprocedural states (ICD-10) S/P cystoscopy ?Z98.890 - Other specified postprocedural states (ICD-10) S/P ureteral stent placement ?Z96.0 - Presence of urogenital implants (ICD-10) H/O ureteroscopy ?Z98.890 - Other specified postprocedural states (ICD-10) History of cholecystectomy ?Z90.49 - Acquired absence of other specified parts of digestive tract (ICD- 10) Family History (Updated 03/30/23 @ 10:56 by Natalee Jules) Other Family history of hypertension Social History Within the past year, how often did you have a drink containing alcohol: monthly or less Smoking status: Never smoker Non-prescribed substance use: denies use 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 Highest level of school completed/degree received: Master's degree Are you now , , , , never or living with a partner: Gender Identity: female Exam Narrative Exam Narrative: Vital signs and Nursing Notes reviewed: Patient is afebrile with a normal pulse, blood pressure is elevated 139/92, she is not hypoxic with pulse ox of 99% on room air General: Awake, alert, oriented, no acute distress, lying comfortably on the stretcher HEENT: Normocephalic atraumatic, mucous membranes are moist and pink, eyes are clear, normal conjunctiva, vision is grossly intact, posterior pharynx is normal in appearance. Neck: Supple, no meningeal signs, no anterior or posterior cervical lymphadenopathy, mild tenderness to the mid cervical spine with no midline bony vertebral tenderness or step-off Chest: Lungs are clear to auscultation with good air entry, there is no wheezing rhonchi or rales appreciated no accessory muscle use, patient is speaking in c omplete sentences-no chest wall tenderness to palpation CVS: Regular rate and rhythm S1-S2, no murmurs rubs or gallops, pulses are brisk and equal bilaterally ABD: Soft, nondistended, nontender, no rebound guarding or rigidity, bowel sounds are normal, no pulsatile masses appreciated Extremities: Moving all extremities, no reproducible tenderness in the thoracic spine Skin: Normal in appearance without rash,pallor, petechiae or purpura Neuro: No focal deficits, patient is clear, there is no facial droop, patient is ambulatory without difficulty Constitutional Vital Signs, click to edit/add: Last Vital Signs Temp 98.0 F 05/02/24 23:20 Pulse 80 05/03/24 05:49 Resp 16 05/03/24 05:49 BP 128/88 05/03/24 05:49 Pulse Ox 99 05/03/24 05:49 O2 Del Method Room Air 05/02/24 23:20 Course Vital Signs Vital signs: Vital Signs Temperature 98.0 F 05/02/24 23:20 Pulse Rate 88 05/02/24 23:20 Respiratory Rate 14 05/02/24 23:20 Blood Pressure 139/92 H 05/02/24 23:20 Pulse Oximetry 99 05/02/24 23:20 Oxygen Delivery Method Room Air 05/02/24 23:20 Temperature 98.0 F 05/02/24 23:20 Pulse Rate 80 05/03/24 05:49 Respiratory Rate 16 05/03/24 05:49 Blood Pressure 128/88 05/03/24 05:49 Pulse Oximetry 99 05/03/24 05:49 Oxygen Delivery Method Room Air 05/02/24 23:20 MDM - Back Pain/Injury MDM Narrative Medical decision making narrative: This 33-year-old female presents for evaluation of neck and upper back pain after she had a migraine headache last Thursday. The headache has resolved but her neck and upper back are still bothering her. She has no fever. There is no thunderclap presentation of the headache. Her neuroexam is normal. She has no nuchal rigidity, fever or concerns for meningitis. She was medicated with IM Toradol and IM Norflex. X-ray of the cervical spine and thoracic spine were ordered. She had mild improvement in her pain with the IM injections and was given an oral percocet. OARRS was reviewed. There was an extended delay in the reading of the studies. I offered the patient discharge as she has follow up with her PCP, Dr Das, tomorrow but she stated that she would rather wait for the results. After an extended period of time, I explained that the readings of her cervical and thoracic xrays were still not available, however, I had reviewed them and did not see any significant abnormalities and she was discharged home with 2 percocet to take until she could see Dr Das. Xray results were available at 6am and are negative for acute findings. Medical Records Medical records narrative: [place] [address] XRay Report Signed Patient: CORI BARRIGA MR#: [id number] : 1990 Acct:[id number] Age/Sex: 33 / F ADM Date: 05/02/24 Loc: ER Attending Dr: Ordering Physician: Ximena Maria Date of Service: 05/03/24 Procedure(s): XR cervical spine 2-3V Accession Number(s): [id number] cc: Ignacio Das M.D.; Ximena Maria~ The [place] [id number] Patient Name: CORI BARRIGA MRN: [id number] date: 1990 Sex: F Assigned Patient Location: ER Current Patient Location: Accession/Order Number: [id number] Exam Date: 05/03/2024 01:25 Report Date: 05/03/2024 05:51 At the request of: XIMENA MARIA Procedure: XR cervical spine 2-3V EXAM: XR cervical spine 2-3V, XR thoracic spine 3V HISTORY: neck pain COMPARISON: None. TECHNIQUE: Frontal and lateral views of the cervical spine and an open-mouth odontoid view were obtained. Frontal, lateral, and swimmer's views of the thoracic spine were obtained. FINDINGS: Cervical spine: The cervical spine is well-imaged from the craniocervical junction to the cervicothoracic junction on the lateral view. No acute fracture or subluxation is seen. There is reversal of the normal cervical lordosis. Otherwise, the vertebral elements are in anatomic alignment. The disc spaces are preserved. The prevertebral soft tissues are unremarkable .There is normal alignment of C1 on C2 on the open-mouth odontoid view. Dental amalgam is noted. The imaged lung apices are clear. Thoracic spine: Cholecystectomy clips are noted. No acute fracture or subluxation is seen. The vertebral body heights are preserved. The vertebral elements are in anatomic alignment. The imaged lungs are clear. XR/XR cervical spine 2-3V IMPRESSION: 1. No acute fracture or subluxation of the cervical or thoracic spine is seen. If there is concern for an occult injury, cross-sectional imaging is recommended. 2. Reversal of the normal cervical lordosis. Electronically authenticated by: Asia CALDWELL Date: 05/03/2024 05:51 Discharge Plan Discharge Stand Alone Forms: Portal Instructions Chief Complaint: Back Pain/Injury Clinical Impression: Cervical strain, Acute thoracic myofascial strain Patient Disposition: Home, Self-Care Time of Disposition Decision: 05:31 Condition: Good Mode of Transportation: Private Vehicle Prescriptions / Home Meds: No Action No Known Home Medications Print Language: Occitan Instructions: Cervical Strain (DC), Muscle Strain (ED) Referrals: Ignacio Das MD [Primary Care Provider] - 1 week Discharge Date/Time: 05/03/24 05:51
[2024-05-03] MEDS: ORPHENADRINE 60 MG/ 2 ML VIAL IM (00:16)
[2024-05-03] MEDS: KETOROLAC TROMETHAMINE 60 MG/2 ML VIAL IM (00:16)
[2024-05-03 00:22] VITALS: BP 127/90; PULSE 84; O2SAT 99
[2024-05-03 01:50] VITALS: BP 128/86; PULSE 77; O2SAT 99
[2024-05-03] MEDS: OXYCODONE HCL/ACETAMINOPHEN 5MG/325MG 1 TAB PO (02:30)
[2024-05-03 02:45] VITALS: BP 115/75; PULSE 75; O2SAT 99
[2024-05-03 04:27] VITALS: BP 114/67; PULSE 86; O2SAT 99
[2024-05-03] MEDS: OXYCODONE HCL/ACETAMINOPHEN 5MG/325MG 2 TAB PO (05:46)
[2024-05-03 05:49] VITALS: BP 128/88; PULSE 80; O2SAT 99
== END 2024-05-03 05:51 | disposition home or self-care (01) ==
PROVIDERS: Emergency Provider Emergency Medicine; PCP Family Medicine
DX: S16.1XXA Strain of muscle, fascia and tendon at neck level, initial encounter (principal); S29.012A Strain of muscle and tendon of back wall of thorax, initial encounter; X58.XXXA Exposure to other specified factors, initial encounter
CPT/HCPCS: 72040; 72072; 96372; 99284; J1885; J2360

== ENCOUNTER 2024-06-29 10:54 | Outpatient (REF) | payer OTHER, SELFPAY ==
--- OUTSIDE RECORDS SUMMARY | 2024-06-29 11:16 | XMS_ITS | CCD ---
Author Organization [facility] Care Team Providers Care Organization Development Consultant Name Role Phone Domingo Das MD Unavailable DANIEL SANTIAGO Attending Unavailable DOMINGO DAS Referring Unavailable Domingo Das Primary Care Physician [phone] Primary Care Unavailable [...] KORTNEY ACOSTA Consulting Unavailable HOY ., DR LAEN Primary Care [...] Consulting Unavailable Nona VILLA Attending Unavailable VILLANona R Attending Unavailable VILLANona R Attending Unavailable VILLANona R Attending Unavailable CELIO VAN Attending Unavailable MD Domingo Das Primary Care Provider [phone] MD Arnulfo Aviles Admit Provider MD Arnulfo Aviles Attending Provider Domingo Das Primary Care Unavailable Arnulfo Aviles Admitting Unavailab Arnulfo Forrest Attending Unavailab le [place] V Attending Unavailable Domingo Das Primary Care Unavailable [place] V Admitting Unavailable Domingo Das Primary Care Unavailable Arnulfo Aviles Admitting Unavailab le Arnulfo Aviles Attending Unavailab le Medications Current Medications Medication Drug Class(es) Dates [...] 13, 2022 12:00am August 16, 2022 11:38am [place] (No Known Home Meds) (1 source) Start: 04-08-2024 [place] (No Kn own Home Meds) Active April [...] BID, # 30 tab(s), Refills(s) 3, Pharmacy: [facility]/pharmacy #[id number], 168, cm, 03/20/23 [...] 02-16-2023 Episodic Other aftercare (1 source) 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; Translations: [OTH [employer]ER CURRENT DRUG THERAPY] Onset: 02-18-2023 Episodic Other aftercare (1 source) 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; Translations: [[employer] FIN[employer]ER USE ORAL HYPOGLYCEMIC DX] Onset: 02-18-2023 Episodic [...] 04-09-2024 Cholesterol [Mass/Vol] 150 mg/dL Normal 140-200 [facility] Comment on above: Chol less than 200 m g/dl low riskChol 201-239 mg/dl borderline riskChol 240 mg/dl and greater high risk Result Comment: Chol less than 200 mg/dl low risk Chol 201-239 mg/dl borderline risk Chol 240 mg/dl and greater high risk Performed By: #### L IPID, TSH3 wRFLX, [id number] #### [address] Cholesterol in LDL Calc [Mas s/Vol]Ordered By: Arnulfo Aviles on 04-09-2024 Cholesterol in LDL [Mass/Vol] 90 mg/dL 0-100 [facility] Comment on above: LDL ATP III CLASSIFI CATIONLDL less than 100 mg/dL OptimalLDL 100-129 mg/dL Near or above optimalLDL 130-159 mg/dL Borderline highLDL 160-189 mg/dL HighLDL greater than 189 mg/dL Very high Cholesterol in VLDL Calc [Ma ss/Vol]Ordered By: Arnulfo Aviles on 04-09-2024 Cholesterol in VLDL [Mass/Vol] 16 mg/dL [facility] ECG 12 lead ECGon 04-09-2024 ECG 12 lead ECG [facility] [place] [address] [place] [address] Electrocardiograph Report Signed Patient: Diana Barriga MR#: [id number] 55 : 1990 Acct:[id number] Age/Sex: 33 / F ADM Date: 04/08/24 Loc: Room: 8O4044-4 Type: ADM IN Attending Dr: Arnulfo Aviles [...] previous ECGs available Conf[id number] on 04/09/2024 3:21:42 PM Referred By: Electronically Signed By:NONA CHAWLA MD, FACC Transcribed By: MUS Signed By Lg Chawla MD 04/09/24 1521 Normal [facility] Physician [facility] Lipid Panelon 04-09-2024 LDL Cholesterol,Calculated 90 mg/dL Normal 0-100 [facility] Phys[facility] Comment on above: Result Comment: LDL ATP III CLASSIFICATION LDL less than 100 mg/dL Optimal LDL 100-129 mg/dL Near or above optimal LDL 130-159 mg/dL Borderline high LDL 160-189 mg/dL High LDL greater than 189 mg/dL Very high Performed By: #### L IPID, TSH3 wRFLX, [id number] #### [address] Triglyceride w/Reflex 82 mg/dL Normal 0-149 [facility] Comment on above: Result Comment: TRIG ATP III CLASSIFICATION TRIG less than 150 mg/dL Normal TRIG 150-199 mg/dL Borderline high TRIG 200-500 mg/dL High TRIG greater than 500 mg/dL Very high Standard traceable to the Center for Disease Conrtrol and Prevention (CDC) test method. Performed By: #### L IPID, TSH3 wRFLX, [id number] #### [place] [id number] [facility] VLDL CHOLESTEROL 16 mg/dL Normal [facility] Phys[facility] Comment on above: Performed By: #### L IPID, TSH3 wRFLX, [id number] #### [facility] [address] Serum or plasma high density lipoprotein (HDL) cholesterol measurementOrdered By: Arnulfo Aviles on 04-09-2024 Cholesterol in HDL [Mass/Vol] 44 mg/dL Normal 23-92 [facility] Comment on above: HDL CHOL ATP-III CLA SSIFICATION Cardiovascular RiskHDL > or equal to 60 mg/dL LOWHDL < 40 mg/dL HIGH Result Comment: HDL CHOL ATP-III CLASSIFICATION Cardiovascular Risk HDL > or equal to 60 mg/dL LOW HDL < 40 mg/dL HIGH Performed By: #### L IPID, TSH3 wRFLX, [id number] #### [facility] [address] [place] [address] Serum or plasma total choles terol/high density lipoprotein (HDL) cholesterol mass ratOrdered By: Arnulfo Aviles on 04-09-2024 Cholesterol.total/Chol esterol in HDL [Mass ratio] 3.4 {ratio} Normal <5.0 [facility] Comment on above: Performed By: #### L IPID, TSH3 wRFLX, [id number] #### [facility] [address] [place] [address] Thyroid Stim Hormone w/Rflxo n 04-09-2024 Thyroid Stim Hormone w/Rflx 2.01 u[iU]/mL Normal 0.45-5.33 [facility] Comment on above: Performed By: #### L IPID, TSH3 wRFLX, [id number] #### [facility] [address] [place] [address] Thyrotropin [Units/volume] i n Serum or PlasmaOrdered By: Arnulfo Aviles on 04-09-2024 TSH Qn 2.01 m[IU]/L 0.45-5.33 [facility] Triglyceride [Mass/volume] i n Serum or PlasmaOrdered By: Arnulfo Aviles on 04-09-2024 Triglyceride [Mass/Vol] 82 mg/dL 0-149 [facility] Comment on above: TRIG ATP III CLASSIF ICATIONTRIG less than 150 mg/dL NormalTRIG 150-199 mg/dL Borderline highTRIG 200-500 mg/dL High TRIG greater than 500 mg/dL Very highStandard traceable to the Center for Disease Conrtrol and Prevention (CDC) test method. Vitamin D 25 Hydroxy Totalon 04-09-2024 Vitamin D 25 Hydroxy Total 26.2 ng/mL Low 30-100 [facility] Comment on above: Result Comment: THA MIN D STATUS 25(OH)VITAMIN D RANGE (ng/mL) Deficient <20 Insufficient 20 to <30 Sufficient 30 to 100 Reference: Jennifer Tiwari, Mady MARTI, et al. Evaluation,treatment, and prevention of vitamin D deficiency; an Endocrine Society clinical practice guideline. JCEM. 2010; 96(7):1911-30. PERFORMED BY: [facility] [address] [place] [address] PATHOLOGIST ELASTIC ATTACHER CHAINSTITCH AB ALCANTARA M.D. Performed By: #### L IPID, TSH3 wRFLX, [id number] #### [facility] [address] Vitamin D+Metabolites [Mass/ volume] in Serum or PlasmaOrdered By: Arnulfo Aviles on 04-09-2024 Vitamin D+Metabolites [Mass/Vol] 26.2 ng/mL 30-100 [facility] Comment on above: VITAMIN D STATUS 25( [place])VITAMIN D RANGE (ng/mL) Deficient <20 Insufficient 20 to <30Sufficient 30 to 100Reference: Jennifer Tiwari, Mady MARTI, et al. Evaluation,treatment, and prevention of vitamin D deficiency; an Endocrine Society clinical practice guideline. JCEM. 2010; 96(7):1911-30. Axel 12-29-2023 L Specimen: [id number] Received: 12/29/23 Status: DAQUAN Moon Num: [id number] Spec Type: Surgical Subm Dr: Glen Graff MD Tissues: A BREAST CORE NO CALCS (LT BREAST 6:00) Procedures: PAS - LGRN, HE/2, Gross/Micro L4, AE1-AE3, CD68 Age/ Patient Sex Location Account Attending Physician Diana Barriga 33/F LABELL [id number] Glen Graff MD SPEC NUM: [id number] RECD: 12/29/23 STATUS: DAQUAN NOLENDarvin NUM: [id number] KELBY: 12/29/23 DR: Glen Graff MD ENTERED: 12/29/[address] [facility]: Miles Celeste Bernie SPEC TYPE: Surgical DEPT: MAX LEGGETT ORDERED: [...] AM 12/29/2023, time out of ---- Specimen: [id number] Received: 12/29/23 Status: DAQUAN Red Num: [id number] Spec Type: Surgical Subm Dr: Glen Graff MD Tissues: A BREAST CORE NO CALCS (LT BREAST 6:00) Procedures: PAS - ELLIS, HE/2, Gross/Micro L4, AE1-AE3, CD68 ---- Patient: Diana Barriga Boogie [id number] (Continued) ---- Specimen: [id number] Received: 12/29/23 (Continued) Gross Description (Continued) Signed (signature on file) Swathi Dumas MD 12/30/23 1834 ---- Specimen: [id number] Received: 12/29/23 Status: DAQUAN Moon Num: [id number] Spec Type: Surgical Subm Dr: Glen Graff MD Tissues: A BREAST CORE NO CALCS (LT BREAST 6:00) Procedures: PAS - ELLIS, HE/2, Gross/Micro L4, AE1-AE3, CD68 ---- Patient: Diana Barriga [id number] (Continued) ---- Specimen: [id number] Received: 12/29/23 (Continued) Gross Description (Continued) formalin: 6 PM 12/29/2023. Cold Ischemia and Fixation Time meets the requirements specified in the latest version of the ASCO/CAP guidelines: Yes. Cold Ischemic Time: 0.03 Formalin Fixation Time: 9.85 CPT Codes 82179 [id number] ---- ---- Specimen: [id number] Received: 12/29/23 Status: DAQUAN Moon Num: [id number] Spec Type: Surgical Subm Dr: Glen Graff MD Tissues: A BREAST CORE NO CALCS (LT BREAST 6:00) Procedures: FIONA CORRAL, HE/2, Gross/Micro L4, AE1-AE3, CD68 ---- Patient: Diana Barriga [id number] (Continued) ---- Signed (signature on file) Swathi Dumas MD 12/30/23 183 Normal [facility] Patient Letter FTon 2023 Patient Letter [facility] December 04, 2023 DIANA BARRIGA [address] [place] [id number] : 1990 Dear Diana, You missed your scheduled appointment on: 12/04/[address] Nona Vilal. Please note our appointment slots fill quickly. [...] any future cancellations. Sincerely, [facility] [address], [place] [address] [facility] Lab Reportson 06-05-2023 Lab Reports [id number]#1.0 0CD:127 [facility] Reminderson 04-24-2023 Reminders - From: Whitney [...] the pt with the results. duplicate message [facility] Operative Reporton Operative Report [id number]#1.00 CD:127 [facility] RAD - MISCon 04-10-2023 RAD - MISC [id number]#1.0 0CD:127 [facility] Lab Reportson 04-06-2023 Lab Reports [id number]#1.0 0CD:127 [facility] Lab Reports [id number]#1.0 0CD:127 [facility] Lab Reportson 03-23-2023 Lab Reports [id number]#1.0 0CD:127 [facility] Lab Reports [id number]#1.0 0CD:127 [facility] Lab Reports [id number]#1.0 0CD:127 [facility] RAD - CT Reporton 03-23-2023 RAD - CT Report [id number]#1.0 0CD:127 Normal [facility] RAD - CT Report [id number]#1.0 0CD:127 Normal [facility] Ambulatory Visit Summaryon 0 03-20-2023 [...] Where: [facility] [address] [place] [address]- Medications What When Instructions Unchanged olanzapine-samidorphan (Lybalvi [...] ? 8 oz (237 mL) of milk, plwwcgf-qojvrrhntnat-e airy milk, and calcium-fortifiedfruit juice. Calcium-fortified means [...] handful of b (more content not included)... [facility] Consent for Procedure/Surger yon 03-20-2023 Consent for Procedure/Surgery [id number]#1.0 0CD:127 [facility] Patient Educationon 03-20-20 23 Patient Education [...] ? 8 oz (237 mL) of milk, uvkzggl-wjfedihbpnty-r airy milk, and calcium-fortifiedfruit juice. Calcium-fortified means [...] Spinach (cooked), rhubarb, beets, sweet potatoes, and Lao chard. ? Peanuts. ? Potato chips, trinidadian fries, and baked potatoes with skin on. ? Nuts and nut products. ? Chocolate. ? If you regularly take a diuretic medicine, make sure to eat at least 1 or 2 servings of fruits or vegetables that are high in potassium each day. These include: ? Avocado. ? Banana. ? Nuckolls, prune, carrot, or tomato juice. ? Baked [...] fish oil, or vitamin B6. ? Take lemt-xwq-ejkyjws and prescription medicines only as told by your health care provider. These include supplements. What foods should I limit? Limit your in (more content not included)... Normal [facility] Urology Office/Clinic Noteon 03-20-2023 Urology [...] Lt kidney pain. Did got to the [facility]. DX'd & treated for UTI. (NEG [...] L. Ox slightly elevated. Pt presented to [facility] ER on 03/06/23 due to L [...] mg qd. SEs discussed. Rx sent to [facility]. -Electrolyte panel 4 weeks to the day [...] See #2. Follow-up With When Contact Information Nona VILLA MD, [facility] [address] [place] [address]- Additional Instructions: schedule R ESWL Patient Education I, Whitney Collier, personally scribed for Dr. Villa on 03/20/2023 11:28:22. . Documentation recorded by the scribe, Whtiney Collier, accurately reflects the services(s) I performed and decisions made by me. Authenticated by Dr. Villa on 03/20/2023 11:30:43. Problem List/Past Medical History Ongoing Bipolar disorder BMI 33.0-33.9,adult Dysuria Feeling of incomplete bladder emptying Flank pain Frequency of urination History of kidney s (more content not included)... Normal [facility] Comment on above: Result Comment: Elec tronically Signed By: Nona VILLA MD\.br\Date and Time Signed: 03/20/23 11:30 EDT\.br\Electronically Co-Signed By: Whitney Collier\.br\Date and Time Co-Signed: 03/20/23 11:28 EDT CBC AUTO DIFFon 02-16-2023 BASO # 0.1 103/ul Normal 0.0-0.1 [facility] Comment on above: Performed By: #### U KJ 24 #### [facility] [address] [address] [address] Ramses Dumas Basophils/100 WBC (Bld) 0.5 % Normal 0.2-2.0 [facility] Comment on above: Performed By: #### U KJ 24 #### [facility] [address] [address] [address] Ramses Dumas EO # 0.0 103/ul Normal 0.0-0.7 [facility] Comment on above: Performed By: #### U KJ 24 #### [facility] [address] [address] [address] Ramses Dumas Eosinophils/100 WBC (Bld) 0.4 % Critically low 0.9-7.0 [facility] Comment on above: Performed By: #### U KJ 24 #### [facility] [address] [place] [address] Dr. Ramses Dumas Erythrocyte distribution width (RBC) [Ratio] 13.7 % Normal 11.0-15.0 [facility] Comment on above: Performed By: #### U KJ 24 #### [facility] [address] [place] [address] Dr. Ramses Dumas Hematocrit (Bld) [Volume fraction] 45.1 % Normal 36.0-48.0 [facility] Comment on above: Performed By: #### U KJ 24 #### [facility] [address] [place] [address] Dr. Ramses Dumas Hemoglobin (Bld) [Mass/Vol] 14.3 g/dL Normal 12.0-16.0 [facility] Comment on above: Performed By: #### U KJ 24 #### [facility] [address] [place] [address] Dr. Ramses Dumas IG # 0.02 10e3/ul Normal 0.00-0.03 [facility] Comment on above: Performed By: #### U KJ 24 #### [facility] [address] [place] [address] Dr. Ramses Dumas IG % 0.2 % Normal 0.0-0.5 [facility] Comment on above: Performed By: #### U KJ 24 #### [facility] [address] [place] [address] Dr. Ramses Dumas LYMPH # 2.5 103/ul Normal 1.2-3.8 [facility] Comment on above: Performed By: #### U KJ 24 #### [facility] [address] [place] [address] Dr. Ramses Dumas Lymphocytes/100 WBC (Bld) 26.4 % Normal 20.5-60.0 [facility] Comment on above: Performed By: #### U KJ 24 #### [facility] [address] [place] [address] Dr. Ramses Dumas MANUAL DIFF REQ NO Normal [facility] Comment on above: Performed By: #### U KJ 24 #### [facility] [address] [place] [address] Dr. Ramses Dumas MCH (RBC) [Entitic mass] 25.6 pg Critically low 26.7-34.0 [facility] Comment on above: Performed By: #### U KJ 24 #### [facility] [address] [place] [address] Dr. Ramses Dumas MCHC (RBC) [Mass/Vol] 31.7 g/dL Normal 29.9-35.2 [facility] Comment on above: Performed By: #### U KJ 24 #### [facility] [address] [place] [address] Dr. Ramses Dumas MCV (RBC) [Entitic vol] 80.7 fL Critically low 81.0-99.0 [facility] Comment on above: Performed By: #### U KJ 24 #### [facility] [address] [place] [address] Dr. Ramses Dumas MONO # 0.7 103/ul Normal 0.3-0.8 [facility] Comment on above: Performed By: #### U KJ 24 #### [facility] [address] [place] [address] Dr. Ramses Dumas Monocytes/100 WBC (Bld) 7.6 % Normal 1.7-12.0 [facility] Comment on above: Performed By: #### U KJ 24 #### [facility] [address] [place] [address] Dr. Ramses Dumas NEUT # 6.1 103/ul Normal 1.4-6.5 [facility] Comment on above: Performed By: #### U KJ 24 #### [facility] [address] [place] [address] Dr. Ramses Dumas Neutrophils/100 WBC (Bld) 64.9 % Normal 43.0-75.0 [facility] Comment on above: Performed By: #### U KJ 24 #### [facility] [address] [place] [address] Dr. Ramses Dumas Platelet mean volume (Bld) [Entitic vol] 11.0 fL Normal 9.5-13.5 [facility] Comment on above: Performed By: #### U KJ 24 #### [facility] [address] [address] [address] Ramses Dumas PLT 270 103/ul Normal 150-450 [facility] Comment on above: Performed By: #### U KJ 24 #### [facility] [address] [address] [address] Ramses Dumas RBC 5.59 106/ul Critically high 4.20-5.40 [facility] Comment on above: Performed By: #### U KJ 24 #### [facility] [address] [address] [address] Ramses Dumas WBC 9.4 103/ul Normal 4.0-11.0 [facility] Comment on above: Performed By: #### U KJ 24 #### [facility] [address] [place] [address] ABD/PELV W CONon [...] by: FARTUN NOVOA Date: 2023-02-16 18:21 Normal [facility] ER URINE PROFILEon 3 Bilirubin Ql (U) SMALL Abnormal NEGATIVE [facility] Comment on above: Performed By: #### C MP #### [facility] [address] [place] [address] Dr. Ramses Dumas Clarity (U) CLEAR Normal CLEAR [facility] Comment on above: Performed By: #### C MP #### [facility] [address] [place] [address] Dr. Ramses Dumas Color (U) YELLOW Normal YELLOW [facility] Comment on above: Performed By: #### C MP #### [facility] [address] [place] [address] Dr. Ramses DELEON A micrscopic examination will be performed if indicated. Normal [facility] Comment on above: Performed By: #### C MP #### [facility] [address] [place] [address] Dr. Ramses Dumas Glucose Ql (U) Negative Normal NEGATIVE [facility] Comment on above: Performed By: #### C MP #### [facility] [address] [place] [address] Dr. Ramses Dumas Hemoglobin Ql (U) Negative Normal NEGATIVE [facility] Comment on above: Performed By: #### C MP #### [facility] [address] [place] [address] Dr. Ramses Dumas Ketones Ql (U) 40 mg/dl Abnormal NEGATIVE [facility] Comment on above: Performed By: #### C MP #### [facility] [address] [place] [address] Dr. Ramses Dumas LEUKOCYTES SMALL Abnormal NEGATIVE [facility] Comment on above: Performed By: #### C MP #### [facility] [address] [place] [address] Dr. Ramses Dumas Nitrite Ql (U) Negative Normal NEGATIVE [facility] Comment on above: Performed By: #### C MP #### [facility] [address] [place] [address] Dr. Ramses Dumas pH (U) 7.0 [pH] Normal 5-9 [facility] Comment on above: Performed By: #### C MP #### [facility] [address] [place] [address] Dr. Ramses Dumas Protein (U) [Mass/Vol] 30 mg/dL Abnormal NEGAT CHRIS/ TRACE [facility] Comment on above: Performed By: #### C MP #### [facility] [address] [place] [address] Dr. Ramses Dumas SPEC GRAVITY 1.020 Normal 1.005-<=1.02 5 [facility] Comment on above: Performed By: #### C MP #### [facility] [address] [place] [address] Dr. Ramses Dumas UR MICRO IND INDICATED Normal [facility] Comment on above: Performed By: #### C MP #### [facility] [address] [place] [address] Dr. Ramses Dumas Urobilinogen Qn (U) 4 {Lucero'U}/dL Abnormal 0.2 - 1.0 [facility] Comment on above: Performed By: #### C MP #### [facility] [address] [place] [address] Dr. Ramses Dumas LIPASEon 02-16-2023 Lipase [Catalytic activity/Vol] 67.0 U/L Critically low 73.0-393.0 [facility] Comment on above: Performed By: #### U RCX #### [facility] [address] [place] [address] Dr. Ramses Dumas LIVER PROFILEon 02-16-2023 Albumin [Mass/Vol] 4.1 g/dL Normal 3.4-5.0 [facility] Comment on above: Performed By: #### U RCX #### [facility] [address] [address] [address] Ramses Dumas Albumin/Globulin [Mass ratio] 1.0 {ratio} Normal [facility] Comment on above: Performed By: #### U RCX #### [facility] [address] [address] [address] Ramses Dumas ALP [Catalytic activity/Vol] 85 U/L Normal 46-116 [facility] Comment on above: Performed By: #### U RCX #### [facility] [address] [address] [address] Ramses Dumas ALT [Catalytic activity/Vol] 61 U/L Critically high 14-59 [facility] Comment on above: Performed By: #### U RCX #### [facility] [address] [address] [address] Ramses Dumas AST [Catalytic activity/Vol] 43 U/L Critically high 15-37 [facility] Comment on above: Performed By: #### U RCX #### [facility] [address] [address] [address] Ramses Dumas BILI, CONJUGATED 0.1 mg/dL Normal 0.0-0.2 [facility] Comment on above: Performed By: #### U RCX #### [facility] [address] [address] [address] Ramses Dumas Bilirubin [Mass/Vol] 0.7 mg/dL Normal 0.2-1.0 [facility] Comment on above: Performed By: #### U RCX #### [facility] [address] [address] [address] Ramses Dumas Globulin (S) [Mass/Vol] 4.2 g/dL Normal [facility] Comment on above: Performed By: #### U RCX #### [facility] [address] [address] [address] Ramses Dumas Protein [Mass/Vol] 8.3 g/dL Critically high 6.4-8.2 [facility] Comment on above: Performed By: #### U RCX #### [facility] [address] [address] [address] Ramses Dumas URon 02-16-2023 , QUAL Negative Normal NEGATIVE [facility] Comment on above: Performed By: #### C MP #### [facility] [address] [address] [address] Ramses Dumas PROF CHEM 8 (BAS METB)on Anion gap [Moles/Vol] 14.2 mmol/L Normal [facility] Comment on above: Performed By: #### U RCX #### [facility] [address] [address] [address] Ramses Dumas Calcium [Mass/Vol] 9.5 mg/dL Normal 8.5-10.1 [facility] Comment on above: Performed By: #### U RCX #### [facility] [address] [address] [address] Ramses Dumas Chloride [Moles/Vol] 102 mmol/L Normal 98-107 [facility] Comment on above: Performed By: #### U RCX #### [facility] [address] [address] [address] Ramses Dumas CO2 [Moles/Vol] 27.5 mmol/L Normal 21.0-32.0 [facility] Comment on above: Performed By: #### U RCX #### [facility] [address] [address] [address] Ramses Dumas Creatinine [Mass/Vol] 0.71 mg/dL Normal 0.55-1.02 [facility] Comment on above: Performed By: #### U RCX #### [facility] [address] [address] [address] Ramses Dumas EGFR-AF BELARUSIAN >60 Normal >=60 [facility] Comment on above: Performed By: #### U RCX #### [facility] [address] [place] [address] Dr. Ramses Dumas EGFR-NON AF BELARUSIAN >60 Normal >=60 [facility] Comment on above: Performed By: #### U RCX #### [facility] [address] [address] [address] Ramses Dumas Glucose [Mass/Vol] 90 mg/dL Normal 74-106 [facility] Comment on above: Performed By: #### U RCX #### [facility] [address] [address] [address] Ramses Dumas Potassium [Moles/Vol] 3.7 mmol/L Normal 3.5-5.1 [facility] Comment on above: Performed By: #### U RCX #### [facility] [address] [address] [address] Ramses Dumas Sodium [Moles/Vol] 140 mmol/L Normal 136-145 [facility] Comment on above: Performed By: #### U RCX #### [facility] [address] [place] [address] Dr. Ramses Dumas Urea nitrogen [Mass/Vol] 6.0 mg/dL Critically low 7.0-18.0 [facility] Comment on above: Performed By: #### U RCX #### [facility] [address] [place] [address] Dr. Ramses Dumas Urea nitrogen/Creatinine [Mass ratio] 8.5 mg/mg Normal [facility] Comment on above: Performed By: #### U RCX #### [facility] [address] [place] [address] Dr. Ramses Dumas URINE MICROSCOPIC ONLYon BACTERIA NONE SEEN Normal NONE SEEN [facility] Comment on above: Performed By: #### U KJ 24 #### [facility] [address] [place] [address] Dr. Ramses Dumas Bacteria identified Cx Nom (U) NOT INDICATED Normal [facility] Comment on above: Performed By: #### U KJ 24 #### [facility] [address] [place] [address] Dr. Ramses Dumas CAST NONE SEEN Normal NONE SEEN [facility] Comment on above: Performed By: #### U KJ 24 #### [facility] [address] [place] [address] Dr. Ramses Dumas Crystals LM Nom (Urine sed) NONE SEEN Normal NONE SEEN [facility] Comment on above: Performed By: #### U KJ 24 #### [facility] [address] [place] [address] Dr. Ramses Dumas Epithelial cells LM Ql (Urine sed) FEW Abnormal NONE SEEN /RARE [facility] Comment on above: Performed By: #### U KJ 24 #### [facility] [address] [place] [address] Dr. Ramses Dumas MUCOUS SMALL Abnormal NONE SEEN [facility] Comment on above: Performed By: #### U KJ 24 #### [facility] [address] [place] [address] Dr. Ramses Dumas RBC NONE SEEN Abnormal 0-2 [facility] Comment on above: Performed By: #### U KJ 24 #### [facility] [address] [place] [address] Dr. Ramses Dumas WBC 0-2 Abnormal NONE SEEN [facility] Comment on above: Performed By: #### U KJ 24 #### [facility] [address] [place] [address] Dr. Ramses Dumas PAP ACOG PANEL 2: 30 to 65on 02-10-2023 . . Normal [facility] Comment on above: Result Comment: Perf ormed at: WB Performed By: #### U RCX #### [facility] [address] [place] [address] Dr. Ramses Dumas Age Gdln ACOG Testing 30-65 Normal [facility] Comment on above: Performed By: #### U RCX #### [facility] [address] [place] [address] Dr. Ramses Dumas DIAGNOSIS: Comment Normal [facility] Comment on above: Result Comment: NEGA TIVE FOR INTRAEPITHELIAL LESION OR MALIGNANCY. REACTIVE CELLULAR CHANGES AND/OR REPAIR ARE PRESENT. Performed at: WB Performed By: #### U RCX #### [facility] [address] [place] [address] Dr. Ramses Dumas Electronically signed by: Comment Normal [facility] Comment on above: Result Comment: Chelsey Boston MD, Pathologist Performed at: WB Performed By: #### U RCX #### [facility] [address] [address] [address] Ramses Dumas HPV Aptima Negative Normal Negative [facility] Comment on above: Result Comment: This nucleic acid amplification test detects fourteen high-risk HPV types (16,18,31,33,35,39,45,51,52,56,58,59,66,68) without differentiation. Performed at: =G Performed By: #### U RCX #### [facility] [address] [address] [address] Ramses Dumas HPV Genotype Reflex Comment Normal [facility] Comment on above: Result Comment: Crit erli not met, HPV Genotype not performed. Performed at: WB Performed By: #### U RCX #### [facility] [address] [address] [address] Ramses Dumas Methodology: Comment Normal [facility] Comment on above: Result Comment: This liquid based ThinPrep(R) pap test was screened with the use of an image guided system. Performed at: WB Performed By: #### U RCX #### [facility] [address] [address] [address] Ramses Dumas Note: Comment Normal [facility] Comment on above: Result Comment: The [...] WB Performed By: #### U RCX #### [facility] [address] [address] [address] Ramses Dumas Performed by: Comment Normal [facility] Comment on above: Result Comment: Cuca Briceno, Furnace Unloader (ASCP) Performed at: WB Performed By: #### U RCX #### [facility] [address] [address] [address] Ramses Dumas Specimen adequacy: Comment Normal [facility] Comment on above: Result Comment: Sati sfactory for evaluation. Endocervical and/or squamous metaplastic cells (endocervical component) are present. Performed at: WB Performed By: #### U RCX #### [facility] [address] [place] [address] Dr. Ramses Dumas Lab Reportson 12-29-2022 Lab Reports [id number]:[id number] Normal [facility] RAD - MISCon 12-21-2022 RAD - MISC [id number]:[id number] Normal [facility] OXALATE 24HR URINEon 023 Oxalates, Urine 44 mg/L Normal Undefined [facility] Comment on above: Performed By: #### U KJ 24 #### [facility] [address] [place] [address] Dr. Ramses Dumas Oxalates, Urine 24hr 44 mg/24 hr Critically high 4-31 [facility] Comment on above: Performed By: #### U KJ 24 #### [facility] [address] [place] [address] Dr. Ramses Dumas CITRATE URINE 24HRon 023 Citric Acid, U, 24hr 658 mg/24 hr Normal 320-1240 [facility] Comment on above: Result Comment: This test was developed and its performance characteristics determined by [facility]. It has not been cleared or approved by the Food and Drug Administration. Performed By: #### C ITRATU #### [facility] [address] [place] [address] Dr. Ramses Dumas Citric Acid, Urine 658 mg/L Normal Undefined [facility] Comment on above: Performed By: #### C ITRATU #### [facility] [address] [place] [address] Dr. Ramses Dumas MAGNESIUM 24HR URINEon 12-17 Magnesium 24hr Urine 119.0 mg/24 hr Normal 12.0-293.0 [facility] Comment on above: Performed By: #### U RCX #### [facility] [address] [place] [address] Dr. Ramses Dumas Magnesium UR 11.9 mg/dL Normal Not Estab. [facility] Comment on above: Performed By: #### U RCX #### [facility] [address] [place] [address] Dr. Ramses Dumas PHOSPHORUS 24HR URINEon Phosphorus, Urine 81.4 mg/dL Normal Not Estab. The [facility] Comment on above: Performed By: #### B LDCX2 #### [facility] [address] [place] [address] Dr. Ramses Dumas Phosphorus, Urine 24hr 814 mg/24 hr Normal 261-1078 [facility] Comment on above: Performed By: #### B LDCX2 #### [facility] [address] [place] [address] Dr. Ramses Dumas PTH INTACTon 12-17-2022 PTH, Intact 46 pg/mL Normal 15-65 [facility] Comment on above: Performed By: #### U RCX #### [facility] [address] [place] [address] Dr. Ramses Dumas URIC ACID 24 HR URINEon Uric Acid, Urine 69.9 mg/dL Normal Not Estab. The [facility] Comment on above: Performed By: #### U KJ 24 #### [facility] [address] [place] [address] Dr. Ramses Dumas Uric Acid, Urine 24hr 699.0 mg/24 hr Normal 173.7-902. 1 [facility] Comment on above: Performed By: #### U KJ 24 #### [facility] [address] [place] [address] Dr. Ramses Dumas BUNon 12-16-2022 Urea nitrogen [Mass/Vol] 7.0 mg/dL Normal 7.0-18.0 [facility] Comment on above: Performed By: #### C BC #### [facility] [address] [place] [address] Dr. Ramses Dumas CALCIUMon 12-16-2022 Calcium [Mass/Vol] 8.8 mg/dL Normal 8.5-10.1 [facility] Comment on above: Performed By: #### C BC #### [facility] [address] [place] [address] Dr. Ramses Dumas CALCIUM 24 HR URINEon 2022 CALC, 24 HR UR 295.0 mg/24 hr Normal 100.0-300.0 [facility] Comment on above: Performed By: #### B LDCX2 #### [facility] [address] [place] [address] Dr. Ramses Dumas UR CALCIUM 29.5 mg/dL Critically high 5.1-21.0 [facility] Comment on above: Performed By: #### B LDCX2 #### [facility] [address] [place] [address] Dr. Ramses Dumas CHLORIDEon 12-16-2022 Chloride [Moles/Vol] 105 mmol/L Normal 98-107 [facility] Comment on above: Performed By: #### C BC #### [facility] [address] [place] [address] Dr. Ramses Dumas CO2on 12-16-2022 CO2 [Moles/Vol] 26.4 mmol/L Normal 21.0-32.0 [facility] Comment on above: Performed By: #### C MP #### [facility] [address] [place] [address] Dr. Ramses Dumas CREA 24 HR URINEon 3 CREA, 24 HR UR 2337.30 mg/24 hr Critically high 800.00 -1,800 .00 [facility] Comment on above: Performed By: #### C VDTBH #### [facility] [address] [place] [address] Dr. Ramses Dumas URINE CREAT 233.73 mg/dL Normal 20.00-300.00 [facility] Comment on above: Performed By: #### C VDTBH #### [facility] [address] [place] [address] Dr. Ramses Dumas CREATININEon 12-16-2022 Creatinine [Mass/Vol] 0.70 mg/dL Normal 0.55-1.02 [facility] Comment on above: Performed By: #### C MP #### [facility] [address] [address] [address] Ramses Dumas EGFR-AF BELARUSIAN >60 Normal >=60 [facility] Comment on above: Performed By: #### C MP #### [facility] [address] [address] [address] Ramses Dumas EGFR-NON AF BELARUSIAN >60 Normal >=60 [facility] Comment on above: Performed By: #### C MP #### [facility] [address] [place] [address] Dr. Ramses Dumas NAon 12-16-2022 Sodium [Moles/Vol] 139 mmol/L Normal 136-145 [facility] Comment on above: Performed By: #### C MP #### [facility] [address] [place] [address] Dr. Ramses Dumas POTASSIUMon 12-16-2022 Potassium [Moles/Vol] 4.0 mmol/L Normal 3.5-5.1 [facility] Comment on above: Performed By: #### C MP #### [facility] [address] [place] [address] Dr. Ramses Dumas SODIUM 24 HR URINEon 023 NA, 24 HR UR 193 mmol/24 hr Normal 40-220 [facility] Comment on above: Performed By: #### C VDTBH #### [facility] [address] [place] [address] Dr. Ramses Dumas Sodium (U) [Moles/Vol] 193 mmol/L Critically high 30-90 [facility] Comment on above: Performed By: #### C VDTBH #### [facility] [address] [place] [address] Dr. Ramses Dumas UR TOT VOL 1000 ml/24 HR Normal [facility] Comment on above: Performed By: #### C VDTBH #### [facility] [address] [place] [address] Dr. Ramses Dumas Performed By: #### B LDCX2 #### [facility] [address] [place] [address] Dr. Ramses Dumas URIC ACID SERUMon 12-16-2022 Urate [Mass/Vol] 5.6 mg/dL Normal 2.6-6.0 [facility] Comment on above: Performed By: #### C MP #### [facility] [address] [place] [address] Dr. Ramses Dumas XR KUB 1 VIEWon [...] JENNIFER GATES Date: 2022-12-15 08:26 Normal [facility] CBC AUTO DIFFon 11-07-2022 BASO # 0.0 103/ul Normal 0.0-0.1 [facility] Comment on above: Performed By: #### U RCX #### [facility] [address] [place] [address] Dr. Ramses Dumas Basophils/100 WBC (Bld) 0.7 % Normal 0.2-2.0 [facility] Comment on above: Performed By: #### U RCX #### [facility] [address] [place] [address] Dr. Ramses Dumas EO # 0.1 103/ul Normal 0.0-0.7 [facility] Comment on above: Performed By: #### U RCX #### [facility] [address] [place] [address] Dr. Ramses Dumas Eosinophils/100 WBC (Bld) 1.9 % Normal 0.9-7.0 [facility] Comment on above: Performed By: #### U RCX #### [facility] [address] [place] [address] Dr. Ramses Dumas Erythrocyte distribution width (RBC) [Ratio] 13.6 % Normal 11.0-15.0 [facility] Comment on above: Performed By: #### U RCX #### [facility] [address] [place] [address] Dr. Ramses Dumas Hematocrit (Bld) [Volume fraction] 37.3 % Normal 36.0-48.0 [facility] Comment on above: Performed By: #### U RCX #### [facility] [address] [place] [address] Dr. Ramses Dumas Hemoglobin (Bld) [Mass/Vol] 12.2 g/dL Normal 12.0-16.0 [facility] Comment on above: Performed By: #### U RCX #### [facility] [address] [place] [address] Dr. Ramses Dumas IG # 0.02 10e3/ul Normal 0.00-0.03 [facility] Comment on above: Performed By: #### U RCX #### [facility] [address] [place] [address] Dr. Ramses Dumas IG % 0.3 % Normal 0.0-0.5 [facility] Comment on above: Performed By: #### U RCX #### [facility] [address] [place] [address] Dr. Ramses Dumas LYMPH # 2.3 103/ul Normal 1.2-3.8 [facility] Comment on above: Performed By: #### U RCX #### [facility] [address] [place] [address] Dr. Ramses Dumas Lymphocytes/100 WBC (Bld) 39.6 % Normal 20.5-60.0 [facility] Comment on above: Performed By: #### U RCX #### [facility] [address] [place] [address] Dr. Ramses Dumas MANUAL DIFF REQ NO Normal [facility] Comment on above: Performed By: #### U RCX #### [facility] [address] [place] [address] Dr. Ramses Dumas MCH (RBC) [Entitic mass] 26.4 pg Critically low 26.7-34.0 [facility] Comment on above: Performed By: #### U RCX #### [facility] [address] [place] [address] Dr. Ramses Dumas MCHC (RBC) [Mass/Vol] 32.7 g/dL Normal 29.9-35.2 [facility] Comment on above: Performed By: #### U RCX #### [facility] [address] [place] [address] Dr. Ramses Dumas MCV (RBC) [Entitic vol] 80.7 fL Critically low 81.0-99.0 [facility] Comment on above: Performed By: #### U RCX #### [facility] [address] [place] [address] Dr. Ramses Dumas MONO # 0.5 103/ul Normal 0.3-0.8 [facility] Comment on above: Performed By: #### U RCX #### [facility] [address] [place] [address] Dr. Ramses Dumas Monocytes/100 WBC (Bld) 8.0 % Normal 1.7-12.0 [facility] Comment on above: Performed By: #### U RCX #### [facility] [address] [place] [address] Dr. Ramses Dumas NEUT # 2.9 103/ul Normal 1.4-6.5 [facility] Comment on above: Performed By: #### U RCX #### [facility] [address] [place] [address] Dr. Ramses Dumas Neutrophils/100 WBC (Bld) 49.5 % Normal 43.0-75.0 [facility] Comment on above: Performed By: #### U RCX #### [facility] [address] [place] [address] Dr. Ramses Dumas Platelet mean volume (Bld) [Entitic vol] 9.0 fL Critically low 9.5-13.5 [facility] Comment on above: Performed By: #### U RCX #### [facility] [address] [place] [address] Dr. Ramses Dumas PLT 337 103/ul Normal 150-450 [facility] Comment on above: Performed By: #### U RCX #### [facility] [address] [place] [address] Dr. Ramses Dumas RBC 4.62 106/ul Normal 4.20-5.40 [facility] Comment on above: Performed By: #### U RCX #### [facility] [address] [place] [address] Dr. Ramses Dumas WBC 5.9 103/ul Normal 4.0-11.0 [facility] Comment on above: Performed By: #### U RCX #### [facility] [address] [place] [address] Dr. Ramses Dumas POINT OF CARE GLUCOSEon 10-20 Glucose [Mass/Vol] 115 mg/dL Critically high 74-106 [facility] Comment on above: Performed By: #### C VDTBH #### [facility] [address] [place] [address] Dr. Ramses Dumas PREG QUANT HCGon 11-07-2022 HCG QUANT <1 Normal [facility] Comment on above: Performed By: #### C VDTBH #### [facility] [address] [place] [address] Dr. Ramses Dumas HCG RANGE SEE BELOW Normal [facility] Comment on above: Result Comment: 5-50 0.2-1 WEEK 50-500 1-2 WEEKS 100-5,000 2-3 WEEKS 500-10,000 3-4 WEEKS 1,000-50,000 4-5 WEEKS 10,000-100,000 5-6 WEEKS 15,000-200,000 6-8 WEEKS 10,000-100,000 2-3 MONTHS Performed By: #### C VDTBH #### [facility] [address] [place] [address] Dr. Ramses Dumas US PELVIS AND TRANSVAGon [...] cm right ovarian simple cyst Normal [facility] CBC AUTO DIFFon 11-03-2022 BASO # 0.1 103/ul Normal 0.0-0.1 [facility] Comment on above: Performed By: #### U RCX #### [facility] [address] [place] [address] Dr. Ramses Dumas Basophils/100 WBC (Bld) 0.8 % Normal 0.2-2.0 [facility] Comment on above: Performed By: #### U RCX #### [facility] [address] [place] [address] Dr. Ramses Dumas EO # 0.1 103/ul Normal 0.0-0.7 [facility] Comment on above: Performed By: #### U RCX #### [facility] [address] [place] [address] Dr. Ramses Dumas Eosinophils/100 WBC (Bld) 1.4 % Normal 0.9-7.0 [facility] Comment on above: Performed By: #### U RCX #### [facility] [address] [place] [address] Dr. Ramses Dumas Erythrocyte distribution width (RBC) [Ratio] 13.4 % Normal 11.0-15.0 [facility] Comment on above: Performed By: #### U RCX #### [facility] [address] [place] [address] Dr. Ramses Dumas Hematocrit (Bld) [Volume fraction] 38.8 % Normal 36.0-48.0 [facility] Comment on above: Performed By: #### U RCX #### [facility] [address] [address] [address] Ramses Dumas Hemoglobin (Bld) [Mass/Vol] 12.7 g/dL Normal 12.0-16.0 [facility] Comment on above: Performed By: #### U RCX #### [facility] [address] [address] [address] Ramses Dumas IG # 0.01 10e3/ul Normal 0.00-0.03 [facility] Comment on above: Performed By: #### U RCX #### [facility] [address] [place] [address] Dr. Ramses Dumas IG % 0.1 % Normal 0.0-0.5 [facility] Comment on above: Performed By: #### U RCX #### [facility] [address] [address] [address] Ramses Dumas LYMPH # 1.9 103/ul Normal 1.2-3.8 [facility] Comment on above: Performed By: #### U RCX #### [facility] [address] [place] [address] Dr. Ramses Dumas Lymphocytes/100 WBC (Bld) 26.4 % Normal 20.5-60.0 [facility] Comment on above: Performed By: #### U RCX #### [facility] [address] [address] [address] Ramses Dumas MANUAL DIFF REQ NO Normal [facility] Comment on above: Performed By: #### U RCX #### [facility] [address] [address] [address] Ramses Dumas MCH (RBC) [Entitic mass] 26.3 pg Critically low 26.7-34.0 [facility] Comment on above: Performed By: #### U RCX #### [facility] [address] [place] [address] Dr. Ramses Dumas MCHC (RBC) [Mass/Vol] 32.7 g/dL Normal 29.9-35.2 [facility] Comment on above: Performed By: #### U RCX #### [facility] [address] [place] [address] Dr. Ramsse Dumas MCV (RBC) [Entitic vol] 80.5 fL Critically low 81.0-99.0 [facility] Comment on above: Performed By: #### U RCX #### [facility] [address] [place] [address] Dr. Ramses Dumas MONO # 0.6 103/ul Normal 0.3-0.8 [facility] Comment on above: Performed By: #### U RCX #### [facility] [address] [place] [address] Dr. Ramses Dumas Monocytes/100 WBC (Bld) 8.2 % Normal 1.7-12.0 [facility] Comment on above: Performed By: #### U RCX #### [facility] [address] [place] [address] Dr. Ramses Dumas NEUT # 4.5 103/ul Normal 1.4-6.5 [facility] Comment on above: Performed By: #### U RCX #### [facility] [address] [place] [address] Dr. Ramses Dumas Neutrophils/100 WBC (Bld) 63.1 % Normal 43.0-75.0 [facility] Comment on above: Performed By: #### U RCX #### [facility] [address] [place] [address] Dr. Ramses Dumas Platelet mean volume (Bld) [Entitic vol] 8.9 fL Critically low 9.5-13.5 [facility] Comment on above: Performed By: #### U RCX #### [facility] [address] [place] [address] Dr. Ramses Dumas PLT 340 103/ul Normal 150-450 [facility] Comment on above: Performed By: #### U RCX #### [facility] [address] [place] [address] Dr. Ramses Dumas RBC 4.82 106/ul Normal 4.20-5.40 [facility] Comment on above: Performed By: #### U RCX #### [facility] [address] [place] [address] Dr. Ramses Dumas WBC 7.1 103/ul Normal 4.0-11.0 [facility] Comment on above: Performed By: #### U RCX #### [facility] [address] [place] [address] Dr. Ramses Dumas [facility] SARS-CoV-2 (COVID-19) RNA FRANCESCA+probe Ql (Unsp spec) Not detected Normal NOT DETECTED [facility] Comment on above: Result Comment: This test is not yet approved or cleared by the [place] FDA. When there are no FDA-approved or cleared tests available, and other criteria are met, FDA can make tests available under an emergency access mechanism called an Emergency Use Authorization (EUA). The EUA for this test is supported by the [place] of Health and Human Service's (HHS's) declaration [...] SARS-CoV-2. Performed By: #### U RCX #### [facility] [address] [place] [address] Dr. Ramses Dumsa FREE T4on 11-03-2022 Free T4 [Mass/Vol] 0.99 ng/dL Normal 0.76-1.46 [facility] Comment on above: Performed By: #### B LDCX2 #### [facility] [address] [place] [address] Dr. Ramses Dumas GLYCOHEMOGLOBIN A1Con 2022 ADA RECOMMENDATION SEE BELOW Normal [facility] Comment on above: Result Comment: ADA RECOMMENDED LIMIT 4.0 - 6.0 ADA THERAPEUTIC TARGET < 7.0 ACTION SUGGESTED > 7.0 Performed By: #### C VDTBH #### [facility] [address] [place] [address] Dr. Ramses Dumas Glucose [Mass/Vol] 117 mg/dL Normal [facility] Comment on above: Performed By: #### C VDTBH #### [facility] [address] [place] [address] Dr. Ramses Dumas HbA1c (Bld) [Mass fraction] 5.7 % Normal 4.5-6.2 [facility] Comment on above: Performed By: #### C VDTBH #### [facility] [address] [place] [address] Dr. Ramses Dumas PROTIMEon 11-03-2022 INR Coag (PPP) [Relative time] 0.97 {INR} Normal [facility] Comment on above: Performed By: #### U KJ 24 #### [facility] [address] [place] [address] Dr. Ramses Dumas INR GUIDELINES SEE BELOW Normal [facility] Comment on above: Result Comment: TOÑA RED INR: 2.0 - 3.0 CONDITIONS NOT LISTED BELOW 2.5 - 3.5 FOR PROSTHETIC HEART VALVE REPLACEMENT 2.5 - 3.5 RECURRENT THROMBOSIS Performed By: #### U KJ 24 #### [facility] [address] [place] [address] Dr. Ramses Dumas PT Coag (PPP) [Time] 10.3 s Normal 9.0-11.6 [facility] Comment on above: Performed By: #### U KJ 24 #### [facility] [address] [place] [address] Dr. Ramses Dumas PTTon 11-03-2022 aPTT Coag (Bld) [Time] 27.7 s Normal 22.3-36.2 [facility] Comment on above: Performed By: #### U KJ 24 #### [facility] [address] [place] [address] Dr. Ramses Dumas TSHon 11-03-2022 TSH 0.667 uIU/mL Normal 0.358-3.740 [facility] Comment on above: Performed By: #### C VDTBH #### [facility] [address] [address] [address] Ramses Dumas PREG HCG QUALon 09-18-2022 , QUAL Negative Normal NEGATIVE [facility] Comment on above: Performed By: #### U KJ 24 #### [facility] [address] [address] [address] Ramses Dumas Covid-19 PCR ([facility])on 08-20 SARS-CoV-2 (COVID-19) RNA FRANCESCA+probe Ql (Unsp spec) Not detected Normal NOT DETECTED [facility] Comment on above: Result Comment: This test is not yet approved or cleared by the [place] FDA. When there are no FDA-approved or cleared tests available, and other criteria are met, FDA can make tests available under an emergency access mechanism called an Emergency Use Authorization (EUA). The EUA for this test is supported by the [place] of Health and Human Service's (HHS's) declaration [...] SARS-CoV-2. Performed By: #### C VDTBH #### [facility] [address] [address] [address] Ramses Dumas CBC AUTO DIFFon 09-05-2022 BASO # 0.1 103/ul Normal 0.0-0.1 [facility] Comment on above: Performed By: #### B LDCX2 #### [facility] [address] [address] [address] Ramses Dumas Basophils/100 WBC (Bld) 0.7 % Normal 0.2-2.0 [facility] Comment on above: Performed By: #### B LDCX2 #### [facility] [address] [place] [address] Dr. Ramses Dumas EO # 0.2 103/ul Normal 0.0-0.7 [facility] Comment on above: Performed By: #### B LDCX2 #### [facility] [address] [place] [address] Dr. Ramses Dumas Eosinophils/100 WBC (Bld) 2.2 % Normal 0.9-7.0 [facility] Comment on above: Performed By: #### B LDCX2 #### [facility] [address] [place] [address] Dr. Ramses Dumas Erythrocyte distribution width (RBC) [Ratio] 13.9 % Normal 11.0-15.0 [facility] Comment on above: Performed By: #### B LDCX2 #### [facility] [address] [place] [address] Dr. Ramses Dumas Hematocrit (Bld) [Volume fraction] 38.8 % Normal 36.0-48.0 [facility] Comment on above: Performed By: #### B LDCX2 #### [facility] [address] [place] [address] Dr. Ramses Dumas Hemoglobin (Bld) [Mass/Vol] 12.6 g/dL Normal 12.0-16.0 [facility] Comment on above: Performed By: #### B LDCX2 #### [facility] [address] [place] [address] Dr. Ramses Dumas IG # 0.03 10e3/ul Normal 0.00-0.03 [facility] Comment on above: Performed By: #### B LDCX2 #### [facility] [address] [place] [address] Dr. Ramses Dumas IG % 0.3 % Normal 0.0-0.5 [facility] Comment on above: Performed By: #### B LDCX2 #### [facility] [address] [place] [address] Dr. Ramses Dumas LYMPH # 2.3 103/ul Normal 1.2-3.8 [facility] Comment on above: Performed By: #### B LDCX2 #### [facility] [address] [place] [address] Dr. Ramses Dumas Lymphocytes/100 WBC (Bld) 21.3 % Normal 20.5-60.0 [facility] Comment on above: Performed By: #### B LDCX2 #### [facility] [address] [place] [address] Dr. Ramses Dumas MANUAL DIFF REQ NO Normal [facility] Comment on above: Performed By: #### B LDCX2 #### [facility] [address] [place] [address] Dr. Ramses Dumas MCH (RBC) [Entitic mass] 26.4 pg Critically low 26.7-34.0 [facility] Comment on above: Performed By: #### B LDCX2 #### [facility] [address] [place] [address] Dr. Ramses Dumas MCHC (RBC) [Mass/Vol] 32.5 g/dL Normal 29.9-35.2 [facility] Comment on above: Performed By: #### B LDCX2 #### [facility] [address] [place] [address] Dr. Ramses Dumas MCV (RBC) [Entitic vol] 81.2 fL Normal 81.0-99.0 [facility] Comment on above: Performed By: #### B LDCX2 #### [facility] [address] [place] [address] Dr. Ramses Dumas MONO # 0.8 103/ul Normal 0.3-0.8 [facility] Comment on above: Performed By: #### B LDCX2 #### [facility] [address] [place] [address] Dr. Ramses Dumas Monocytes/100 WBC (Bld) 7.4 % Normal 1.7-12.0 [facility] Comment on above: Performed By: #### B LDCX2 #### [facility] [address] [address] [address] Ramses Dumas NEUT # 7.3 103/ul Critically high 1.4-6.5 [facility] Comment on above: Performed By: #### B LDCX2 #### [facility] [address] [place] [address] Dr. Ramses Dumas Neutrophils/100 WBC (Bld) 68.1 % Normal 43.0-75.0 [facility] Comment on above: Performed By: #### B LDCX2 #### [facility] [address] [place] [address] Dr. Ramses Dumas Platelet mean volume (Bld) [Entitic vol] 8.8 fL Critically low 9.5-13.5 [facility] Comment on above: Performed By: #### B LDCX2 #### [facility] [address] [place] [address] Dr. Ramses Dumas PLT 323 103/ul Normal 150-450 [facility] Comment on above: Performed By: #### B LDCX2 #### [facility] [address] [place] [address] Dr. Ramses Dumas RBC 4.78 106/ul Normal 4.20-5.40 [facility] Comment on above: Performed By: #### B LDCX2 #### [facility] [address] [place] [address] Dr. Ramses Dumas WBC 10.7 103/ul Normal 4.0-11.0 [facility] Comment on above: Performed By: #### B LDCX2 #### [facility] [address] [place] [address] Dr. Ramses Dumas CULTURE URINEon 09-05-2022 CULTURE URINE Culture Observations : LIGHT GROWTH OF MIXED GENITAL DAIANA. NO POTENTIAL PATHOGENS SEEN. Normal [facility] Comment on above: Performed By: #### U RCX #### [facility] [address] [place] [address] Dr. Ramses Dumas ER URINE PROFILEon Bilirubin Ql (U) Negative Normal NEGATIVE [facility] Comment on above: Performed By: #### B LDCX2 #### [facility] [address] [place] [address] Dr. Ramses Dumas Clarity (U) CLOUDY Abnormal CLEAR [facility] Comment on above: Performed By: #### B LDCX2 #### [facility] [address] [place] [address] Dr. Ramses Dumas Color (U) YELLOW Normal YELLOW [facility] Comment on above: Performed By: #### B LDCX2 #### [facility] [address] [place] [address] Dr. Ramses Dumas ERUAHWalter A micrscopic examination will be performed if indicated. Normal [facility] Comment on above: Performed By: #### B LDCX2 #### [facility] [address] [place] [address] Dr. Ramses Dumas Glucose Ql (U) Negative Normal NEGATIVE [facility] Comment on above: Performed By: #### B LDCX2 #### [facility] [address] [place] [address] Dr. Ramses Dumas Hemoglobin Ql (U) LARGE Abnormal NEGATIVE [facility] Comment on above: Performed By: #### B LDCX2 #### [facility] [address] [place] [address] Dr. Ramses Dumas Ketones Ql (U) Negative Normal NEGATIVE [facility] Comment on above: Performed By: #### B LDCX2 #### [facility] [address] [place] [address] Dr. Ramses Dumas LEUKOCYTES SMALL Abnormal NEGATIVE [facility] Comment on above: Performed By: #### B LDCX2 #### [facility] [address] [place] [address] Dr. Ramses Dumas Nitrite Ql (U) Negative Normal NEGATIVE [facility] Comment on above: Performed By: #### B LDCX2 #### [facility] [address] [place] [address] Dr. Ramses Dumas pH (U) 6.0 [pH] Normal 5-9 [facility] Comment on above: Performed By: #### B LDCX2 #### [facility] [address] [place] [address] Dr. Ramses Dumas Protein (U) [Mass/Vol] 100 mg/dL Abnormal NEGAT CHRIS/ TRACE [facility] Comment on above: Performed By: #### B LDCX2 #### [facility] [address] [place] [address] Dr. Ramses Dumas SPEC GRAVITY >=1.030 Abnormal 1.005-<=1.02 5 [facility] Comment on above: Performed By: #### B LDCX2 #### [facility] [address] [address] [address] Ramses Dumas UR MICRO IND INDICATED Normal [facility] Comment on above: Performed By: #### B LDCX2 #### [facility] [address] [place] [address] Dr. Ramses Dumas Urobilinogen Qn (U) 0.2 {Lucero'U}/dL Normal 0.2 - 1. 0 [facility] Comment on above: Performed By: #### B LDCX2 #### [facility] [address] [place] [address] Dr. Ramses Dumas URon 09-05-2022 , QUAL Negative Normal NEGATIVE [facility] Comment on above: Performed By: #### B LDCX2 #### [facility] [address] [place] [address] Dr. Ramses Dumas PROF CHEM 8 (BAS METB)on Anion gap [Moles/Vol] 11.7 mmol/L Normal [facility] Comment on above: Performed By: #### C MP #### [facility] [address] [place] [address] Dr. Ramses Dumas Calcium [Mass/Vol] 9.1 mg/dL Normal 8.5-10.1 [facility] Comment on above: Performed By: #### C MP #### [facility] [address] [place] [address] Dr. Ramses Dumas Chloride [Moles/Vol] 103 mmol/L Normal 98-107 [facility] Comment on above: Performed By: #### C MP #### [facility] [address] [address] [address] Ramses Dumas CO2 [Moles/Vol] 25.9 mmol/L Normal 21.0-32.0 [facility] Comment on above: Performed By: #### C MP #### [facility] [address] [address] [address] Ramses Dumas Creatinine [Mass/Vol] 0.77 mg/dL Normal 0.55-1.02 [facility] Comment on above: Performed By: #### C MP #### [facility] [address] [address] [address] Ramses Dumas EGFR-AF BELARUSIAN >60 Normal >=60 [facility] Comment on above: Performed By: #### C MP #### [facility] [address] [place] [address] Dr. Ramses Dumas EGFR-NON AF BELARUSIAN >60 Normal >=60 [facility] Comment on above: Performed By: #### C MP #### [facility] [address] [address] [address] Ramses Dumas Glucose [Mass/Vol] 124 mg/dL Critically high 74-106 [facility] Comment on above: Performed By: #### C MP #### [facility] [address] [address] [address] Ramses Dumas Potassium [Moles/Vol] 3.6 mmol/L Normal 3.5-5.1 [facility] Comment on above: Performed By: #### C MP #### [facility] [address] [address] [address] Ramses Dumas Sodium [Moles/Vol] 137 mmol/L Normal 136-145 [facility] Comment on above: Performed By: #### C MP #### [facility] [address] [place] [address] Dr. Ramses Dumas Urea nitrogen [Mass/Vol] 12.0 mg/dL Normal 7.0-18.0 [facility] Comment on above: Performed By: #### C MP #### [facility] [address] [address] [address] Ramses Dumas Urea nitrogen/Creatinine [Mass ratio] 15.6 mg/mg Normal [facility] Comment on above: Performed By: #### C MP #### [facility] [address] [place] [address] Dr. Ramses Dumas URINE MICROSCOPIC ONLYon AMORPHOUS CRYSTALS RARE Normal [facility] Comment on above: Performed By: #### B LDCX2 #### [facility] [address] [place] [address] Dr. Ramses Dumas BACTERIA TRACE Abnormal NONE SEEN [facility] Comment on above: Performed By: #### B LDCX2 #### [facility] [address] [place] [address] Dr. Ramses Dumas Bacteria identified Cx Nom (U) INDICATED Normal [facility] Comment on above: Performed By: #### B LDCX2 #### [facility] [address] [place] [address] Dr. Ramses Dumas CA OX CRYSTALS RARE Normal [facility] Comment on above: Performed By: #### B LDCX2 #### [facility] [address] [place] [address] Dr. Ramses Dumas CAST NONE SEEN Normal NONE SEEN [facility] Comment on above: Performed By: #### B LDCX2 #### [facility] [address] [place] [address] Dr. Ramses Dumas Crystals LM Nom (Urine sed) SEEN Abnormal NONE SEEN [facility] Comment on above: Performed By: #### B LDCX2 #### [facility] [address] [place] [address] Dr. Ramses Dumas Epithelial cells LM Ql (Urine sed) FEW Abnormal NONE SEEN /RARE [facility] Comment on above: Performed By: #### B LDCX2 #### [facility] [address] [place] [address] Dr. Ramses Dumas MUCOUS TRACE Abnormal NONE SEEN [facility] Comment on above: Performed By: #### B LDCX2 #### [facility] [address] [place] [address] Dr. Ramses Dumas RBC 50-75 Abnormal 0-2 [facility] Comment on above: Performed By: #### B LDCX2 #### [facility] [address] [address] [address] Ramses Dumas WBC 20-50 Abnormal NONE SEEN [facility] Comment on above: Performed By: #### B LDCX2 #### [facility] [address] [address] [address] Ramses Dumas YEAST PRESENT Abnormal NONE SEEN [facility] Comment on above: Performed By: #### B LDCX2 #### [facility] [address] [place] [address] Dr. Ramses Dumas US KIDNEYSon 09-05-2022 US [...] GLEN GRAFF Date: 2022-09-05 11:00 Normal [facility] CT ABD/PELVIS WO CONon 08-29 [...] ERICKA IGLESIAS Date: 2022-08-29 01:10 Normal [facility] CULTURE URINEon 08-29-2022 CULTURE URINE Culture Observations : LIGHT GROWTH OF MIXED GENITAL DAIANA. NO POTENTIAL PATHOGENS SEEN. Normal [facility] Comment on above: Performed By: #### U RCX #### [facility] [address] [place] [address] Dr. Ramses Dumas CBC AUTO DIFFon 08-28-2022 BASO # 0.1 103/ul Normal 0.0-0.1 [facility] Comment on above: Performed By: #### U RCX #### [facility] [address] [place] [address] Dr. Ramses Dumas Basophils/100 WBC (Bld) 0.5 % Normal 0.2-2.0 [facility] Comment on above: Performed By: #### U RCX #### [facility] [address] [place] [address] Dr. Ramses Dumas EO # 0.3 103/ul Normal 0.0-0.7 [facility] Comment on above: Performed By: #### U RCX #### [facility] [address] [place] [address] Dr. Ramses Dumas Eosinophils/100 WBC (Bld) 2.3 % Normal 0.9-7.0 [facility] Comment on above: Performed By: #### U RCX #### [facility] [address] [place] [address] Dr. Ramses Dumas Erythrocyte distribution width (RBC) [Ratio] 13.7 % Normal 11.0-15.0 [facility] Comment on above: Performed By: #### U RCX #### [facility] [address] [place] [address] Dr. Ramses Dumas Hematocrit (Bld) [Volume fraction] 36.7 % Normal 36.0-48.0 [facility] Comment on above: Performed By: #### U RCX #### [facility] [address] [place] [address] Dr. Ramses Dumas Hemoglobin (Bld) [Mass/Vol] 12.3 g/dL Normal 12.0-16.0 [facility] Comment on above: Performed By: #### U RCX #### [facility] [address] [place] [address] Dr. Ramses Dumas IG # 0.16 10e3/ul Critically high 0.00-0.03 [facility] Comment on above: Performed By: #### U RCX #### [facility] [address] [place] [address] Dr. Ramses Dumas IG % 1.1 % Critically high 0.0-0.5 [facility] Comment on above: Performed By: #### U RCX #### [facility] [address] [place] [address] Dr. Ramses Dumas LYMPH # 4.6 103/ul Critically high 1.2-3.8 [facility] Comment on above: Performed By: #### U RCX #### [facility] [address] [place] [address] Dr. Ramses Dumas Lymphocytes/100 WBC (Bld) 31.8 % Normal 20.5-60.0 [facility] Comment on above: Performed By: #### U RCX #### [facility] [address] [place] [address] Dr. Ramses Dumas MANUAL DIFF REQ NO Normal [facility] Comment on above: Performed By: #### U RCX #### [facility] [address] [place] [address] Dr. Ramses Dumas MCH (RBC) [Entitic mass] 26.9 pg Normal 26.7-34.0 [facility] Comment on above: Performed By: #### U RCX #### [facility] [address] [place] [address] Dr. Ramses Dumas MCHC (RBC) [Mass/Vol] 33.5 g/dL Normal 29.9-35.2 [facility] Comment on above: Performed By: #### U RCX #### [facility] [address] [place] [address] Dr. Ramses Dumas MCV (RBC) [Entitic vol] 80.3 fL Critically low 81.0-99.0 [facility] Comment on above: Performed By: #### U RCX #### [facility] [address] [place] [address] Dr. Ramses Dumas MONO # 1.0 103/ul Critically high 0.3-0.8 [facility] Comment on above: Performed By: #### U RCX #### [facility] [address] [place] [address] Dr. Ramses Dumas Monocytes/100 WBC (Bld) 7.0 % Normal 1.7-12.0 [facility] Comment on above: Performed By: #### U RCX #### [facility] [address] [place] [address] Dr. Ramses Dumas NEUT # 8.2 103/ul Critically high 1.4-6.5 [facility] Comment on above: Performed By: #### U RCX #### [facility] [address] [place] [address] Dr. Ramses Dumas Neutrophils/100 WBC (Bld) 57.3 % Normal 43.0-75.0 [facility] Comment on above: Performed By: #### U RCX #### [facility] [address] [place] [address] Dr. Ramses Dumas Platelet mean volume (Bld) [Entitic vol] 8.6 fL Critically low 9.5-13.5 [facility] Comment on above: Performed By: #### U RCX #### [facility] [address] [place] [address] Dr. Ramses Dumas PLT 395 103/ul Normal 150-450 [facility] Comment on above: Performed By: #### U RCX #### [facility] [address] [place] [address] Dr. Ramses Dumas RBC 4.57 106/ul Normal 4.20-5.40 [facility] Comment on above: Performed By: #### U RCX #### [facility] [address] [place] [address] Dr. Ramses Dumas WBC 14.3 103/ul Critically high 4.0-11.0 [facility] Comment on above: Performed By: #### U RCX #### [facility] [address] [place] [address] Dr. Ramses Dumas ER URINE PROFILEon 2 Bilirubin Ql (U) Negative Normal NEGATIVE [facility] Comment on above: Performed By: #### U KJ 24 #### [facility] [address] [place] [address] Dr. Ramses Dumas Clarity (U) CLEAR Normal CLEAR [facility] Comment on above: Performed By: #### U KJ 24 #### [facility] [address] [place] [address] Dr. Ramses Dumas Color (U) LT. YELLOW Normal YELLOW [facility] Comment on above: Performed By: #### U KJ 24 #### [facility] [address] [place] [address] Dr. Ramses Dumas ERUAHD A micrscopic examination will be performed if indicated. Normal [facility] Comment on above: Performed By: #### U KJ 24 #### [facility] [address] [place] [address] Dr. Ramses Dumas Glucose Ql (U) Negative Normal NEGATIVE [facility] Comment on above: Performed By: #### U KJ 24 #### [facility] [address] [place] [address] Dr. Ramses Dumas Hemoglobin Ql (U) LARGE Abnormal NEGATIVE [facility] Comment on above: Performed By: #### U KJ 24 #### [facility] [address] [place] [address] Dr. Ramses Dumas Ketones Ql (U) Negative Normal NEGATIVE [facility] Comment on above: Performed By: #### U KJ 24 #### [facility] [address] [place] [address] Dr. Ramses Dumas LEUKOCYTES MODERATE Abnormal NEGATIVE [facility] Comment on above: Performed By: #### U KJ 24 #### [facility] [address] [place] [address] Dr. Ramses Dumas Nitrite Ql (U) Negative Normal NEGATIVE [facility] Comment on above: Performed By: #### U KJ 24 #### [facility] [address] [place] [address] Dr. Ramses Dumas pH (U) 6.5 [pH] Normal 5-9 [facility] Comment on above: Performed By: #### U KJ 24 #### [facility] [address] [place] [address] Dr. Ramses Dumas Protein (U) [Mass/Vol] 100 mg/dL Abnormal NEGAT CHRIS/ TRACE [facility] Comment on above: Performed By: #### U KJ 24 #### [facility] [address] [place] [address] Dr. Ramses Dumas SPEC GRAVITY 1.020 Normal 1.005-<=1.[address] [place] [address] Comment on above: Performed By: #### U KJ 24 #### [facility] [address] [place] [address] Dr. Ramses Dumas UR MICRO IND INDICATED Normal [facility] Comment on above: Performed By: #### U KJ 24 #### [facility] [address] [place] [address] Dr. Ramses Dumas Urobilinogen Qn (U) 0.2 {Lucero'U}/dL Normal 0.2 - 1. 0 [facility] Comment on above: Performed By: #### U KJ 24 #### [facility] [address] [address] [address] Ramses Dumas PROF 14(COMP METB)on 022 Albumin [Mass/Vol] 3.3 g/dL Critically low 3.4-5.0 Th e [facility] Comment on above: Performed By: #### C MP #### [facility] [address] [address] [address] Ramses Dumas Albumin/Globulin [Mass ratio] 0.8 {ratio} Normal [facility] Comment on above: Performed By: #### C MP #### [facility] [address] [address] [address] Ramses Dumas ALP [Catalytic activity/Vol] 108 U/L Normal 46-116 [facility] Comment on above: Performed By: #### C MP #### [facility] [address] [place] [address] Dr. Ramses Dumas ALT [Catalytic activity/Vol] 103 U/L Critically high 14-59 [facility] Comment on above: Performed By: #### C MP #### [facility] [address] [address] [address] Ramses Dumas Anion gap [Moles/Vol] 6.6 mmol/L Normal [facility] Comment on above: Performed By: #### C MP #### [facility] [address] [place] [address] Dr. Ramses Dumas AST [Catalytic activity/Vol] 21 U/L Normal 15-37 [facility] Comment on above: Performed By: #### C MP #### [facility] [address] [address] [address] Ramses Dumas Bilirubin [Mass/Vol] 0.2 mg/dL Normal 0.2-1.0 [facility] Comment on above: Performed By: #### C MP #### [facility] [address] [address] [address] Ramses Dumas Calcium [Mass/Vol] 9.2 mg/dL Normal 8.5-10.1 [facility] Comment on above: Performed By: #### C MP #### [facility] [address] [address] [address] Ramses Dumas Chloride [Moles/Vol] 102 mmol/L Normal 98-107 [facility] Comment on above: Performed By: #### C MP #### [facility] [address] [address] [address] Ramses Dumas CO2 [Moles/Vol] 28.8 mmol/L Normal 21.0-32.0 [facility] Comment on above: Performed By: #### C MP #### [facility] [address] [address] [address] Ramses Dumas Creatinine [Mass/Vol] 0.92 mg/dL Normal 0.55-1.02 [facility] Comment on above: Performed By: #### C MP #### [facility] [address] [place] [address] Dr. Ramses Dumas EGFR-AF BELARUSIAN >60 Normal >=60 [facility] Comment on above: Performed By: #### C MP #### [facility] [address] [address] [address] Ramses Dumas EGFR-NON AF BELARUSIAN >60 Normal >=60 [facility] Comment on above: Performed By: #### C MP #### [facility] [address] [place] [address] Dr. Ramses Dumas Globulin (S) [Mass/Vol] 4.1 g/dL Normal [facility] Comment on above: Performed By: #### C MP #### [facility] [address] [address] [address] Ramses Dumas Glucose [Mass/Vol] 114 mg/dL Critically high 74-106 [facility] Comment on above: Performed By: #### C MP #### [facility] [address] [place] [address] Dr. Ramses Dumas Potassium [Moles/Vol] 3.4 mmol/L Critically low 3.5-5.1 [facility] Comment on above: Performed By: #### C MP #### [facility] [address] [address] [address] Ramses Dumas Protein [Mass/Vol] 7.4 g/dL Normal 6.4-8.2 [facility] Comment on above: Performed By: #### C MP #### [facility] [address] [place] [address] Dr. Ramses Dumas Sodium [Moles/Vol] 134 mmol/L Critically low 136-145 [facility] Comment on above: Performed By: #### C MP #### [facility] [address] [place] [address] Dr. Ramses Dumas Urea nitrogen [Mass/Vol] 11.0 mg/dL Normal 7.0-18.0 [facility] Comment on above: Performed By: #### C MP #### [facility] [address] [place] [address] Dr. Ramses Dumas Urea nitrogen/Creatinine [Mass ratio] 12.0 mg/mg Normal [facility] Comment on above: Performed By: #### C MP #### [facility] [address] [place] [address] Dr. Ramses Dumas URINE MICROSCOPIC ONLYon BACTERIA MODERATE Abnormal NONE SEEN [facility] Comment on above: Performed By: #### U KJ 24 #### [facility] [address] [place] [address] Dr. Ramses Dumas Bacteria identified Cx Nom (U) INDICATED Normal [facility] Comment on above: Performed By: #### U KJ 24 #### [facility] [address] [place] [address] Dr. Ramses Dumas CAST NONE SEEN Normal NONE SEEN [facility] Comment on above: Performed By: #### U KJ 24 #### [facility] [address] [place] [address] Dr. Ramses Dumas Crystals LM Nom (Urine sed) NONE SEEN Normal NONE SEEN [facility] Comment on above: Performed By: #### U KJ 24 #### [facility] [address] [place] [address] Dr. Ramses Dumas Epithelial cells LM Ql (Urine sed) RARE Normal NONE SEEN /RARE [facility] Comment on above: Performed By: #### U KJ 24 #### [facility] [address] [place] [address] Dr. Ramses Dumas MUCOUS NONE SEEN Normal NONE SEEN [facility] Comment on above: Performed By: #### U KJ 24 #### [facility] [address] [place] [address] Dr. Ramses Dumas RBC 20-50 Abnormal 0-2 [facility] Comment on above: Performed By: #### U KJ 24 #### [facility] [address] [place] [address] Dr. Ramses Dumas WBC 5-10 Abnormal NONE SEEN [facility] Comment on above: Performed By: #### U KJ 24 #### [facility] [address] [place] [address] Dr. Ramses Dumas CULTURE BLOODon 08-25-2022 Microscopic [...] F Tetracycline >=16 R F Normal [facility] Comment on above: Performed By: #### B LDCX2 #### [facility] [address] [place] [address] Dr. Ramses Dumas Microscopic examination of blood, [...] F Tetracycline >=16 R F Normal [facility] Comment on above: Performed By: #### C BC #### [facility] [address] [place] [address] Dr. Ramses Dumas CBC AUTO DIFFon 08-24-2022 BASO # 0.0 103/ul Normal 0.0-0.1 [facility] Comment on above: Performed By: #### C BC #### [facility] [address] [place] [address] Dr. Ramses Dumas Basophils/100 WBC (Bld) 0.1 % Critically low 0.2-2.0 [facility] Comment on above: Performed By: #### C BC #### [facility] [address] [place] [address] Dr. Ramses Dumas EO # 0.0 103/ul Normal 0.0-0.7 [facility] Comment on above: Performed By: #### C BC #### [facility] [address] [place] [address] Dr. Ramses Dumas Eosinophils/100 WBC (Bld) 0.0 % Critically low 0.9-7.0 [facility] Comment on above: Performed By: #### C BC #### [facility] [address] [place] [address] Dr. Ramses Dumas Erythrocyte distribution width (RBC) [Ratio] 13.5 % Normal 11.0-15.0 [facility] Comment on above: Performed By: #### C BC #### [facility] [address] [place] [address] Dr. Ramses Dumas Hematocrit (Bld) [Volume fraction] 33.0 % Critically low 36.0-48.0 [facility] Comment on above: Performed By: #### C BC #### [facility] [address] [place] [address] Dr. Ramses Dumas Hemoglobin (Bld) [Mass/Vol] 10.7 g/dL Critically low 12.0-16.0 [facility] Comment on above: Performed By: #### C BC #### [facility] [address] [address] [address] Ramses Dumas IG # 0.04 10e3/ul Critically high 0.00-0.03 [facility] Comment on above: Performed By: #### C BC #### [facility] [address] [address] [address] Ramses Dumas IG % 0.4 % Normal 0.0-0.5 [facility] Comment on above: Performed By: #### C BC #### [facility] [address] [address] [address] Ramses Dumas LYMPH # 0.8 103/ul Critically low 1.2-3.8 [facility] Comment on above: Performed By: #### C BC #### [facility] [address] [address] [address] Ramses Dumas Lymphocytes/100 WBC (Bld) 7.9 % Critically low 20.5-60.0 [facility] Comment on above: Performed By: #### C BC #### [facility] [address] [address] [address] Ramses Dumas MANUAL DIFF REQ NO Normal [facility] Comment on above: Performed By: #### C BC #### [facility] [address] [address] [address] Ramses Dumas MCH (RBC) [Entitic mass] 26.5 pg Critically low 26.7-34.0 [facility] Comment on above: Performed By: #### C BC #### [facility] [address] [address] [address] Ramses Dumas MCHC (RBC) [Mass/Vol] 32.4 g/dL Normal 29.9-35.2 [facility] Comment on above: Performed By: #### C BC #### [facility] [address] [address] [address] Ramses Dumas MCV (RBC) [Entitic vol] 81.7 fL Normal 81.0-99.0 [facility] Comment on above: Performed By: #### C BC #### [facility] [address] [address] [address] Ramses Dumas MONO # 0.6 103/ul Normal 0.3-0.8 [facility] Comment on above: Performed By: #### C BC #### [facility] [address] [address] [address] Ramses Dumas Monocytes/100 WBC (Bld) 6.3 % Normal 1.7-12.0 [facility] Comment on above: Performed By: #### C BC #### [facility] [address] [address] [address] Ramses Dumas NEUT # 8.6 103/ul Critically high 1.4-6.5 [facility] Comment on above: Performed By: #### C BC #### [facility] [address] [place] [address] Dr. Ramses Dumas Neutrophils/100 WBC (Bld) 85.3 % Critically high 43.0-75.0 [facility] Comment on above: Performed By: #### C BC #### [facility] [address] [place] [address] Dr. Ramses Dumas Platelet mean volume (Bld) [Entitic vol] 9.1 fL Critically low 9.5-13.5 [facility] Comment on above: Performed By: #### C BC #### [facility] [address] [place] [address] Dr. Ramses Dumas PLT 248 103/ul Normal 150-450 [facility] Comment on above: Performed By: #### C BC #### [facility] [address] [address] [address] Ramses Dumas RBC 4.04 106/ul Critically low 4.20-5.40 [facility] Comment on above: Performed By: #### C BC #### [facility] [address] [place] [address] Dr. Ramses Dumas WBC 10.1 103/ul Normal 4.0-11.0 [facility] Comment on above: Performed By: #### C BC #### [facility] [address] [place] [address] Dr. Ramses Dumas CULTURE URINEon 08-24-2022 CULTURE [...] S F Tetracycline >=16 R F Normal [facility] Comment on above: Performed By: #### U RCX #### [facility] [address] [place] [address] Dr. Ramses Dumas PROF 14(COMP METB)on 022 Albumin [Mass/Vol] 2.4 g/dL Critically low 3.4-5.0 [facility] Comment on above: Performed By: #### C VDTBH #### [facility] [address] [place] [address] Dr. Ramses Dumas Albumin/Globulin [Mass ratio] 0.7 {ratio} Normal [facility] Comment on above: Performed By: #### C VDTBH #### [facility] [address] [place] [address] Dr. Ramses Dumas ALP [Catalytic activity/Vol] 95 U/L Normal 46-116 [facility] Comment on above: Performed By: #### C VDTBH #### [facility] [address] [place] [address] Dr. Ramses Dumas ALT [Catalytic activity/Vol] 327 U/L Critically high 14-59 [facility] Comment on above: Performed By: #### C VDTBH #### [facility] [address] [place] [address] Dr. Ramses Dumas Anion gap [Moles/Vol] 8.7 mmol/L Normal [facility] Comment on above: Performed By: #### C VDTBH #### [facility] [address] [address] [address] Ramses Dumas AST [Catalytic activity/Vol] 165 U/L Critically high 15-37 [facility] Comment on above: Performed By: #### C VDTBH #### [facility] [address] [address] [address] Ramses Dumas Bilirubin [Mass/Vol] 0.4 mg/dL Normal 0.2-1.0 [facility] Comment on above: Performed By: #### C VDTBH #### [facility] [address] [address] [address] Ramses Dumas Calcium [Mass/Vol] 8.0 mg/dL Critically low 8.5-10.1 [facility] Comment on above: Performed By: #### C VDTBH #### [facility] [address] [place] [address] Dr. Ramses Dumas Chloride [Moles/Vol] 108 mmol/L Critically high 98-107 [facility] Comment on above: Performed By: #### C VDTBH #### [facility] [address] [address] [address] Ramses Dumas CO2 [Moles/Vol] 25.3 mmol/L Normal 21.0-32.0 [facility] Comment on above: Performed By: #### C VDTBH #### [facility] [address] [place] [address] Dr. Ramses Dumas Creatinine [Mass/Vol] 0.70 mg/dL Normal 0.55-1.02 [facility] Comment on above: Performed By: #### C VDTBH #### [facility] [address] [address] [address] Ramses Dumas EGFR-AF BELARUSIAN >60 Normal >=60 [facility] Comment on above: Performed By: #### C VDTBH #### [facility] [address] [address] [address] Ramses Dumas EGFR-NON AF BELARUSIAN >60 Normal >=60 [facility] Comment on above: Performed By: #### C VDTBH #### [facility] [address] [address] [address] Ramses Dumas Globulin (S) [Mass/Vol] 3.6 g/dL Normal [facility] Comment on above: Performed By: #### C VDTBH #### [facility] [address] [address] [address] Ramses Dumas Glucose [Mass/Vol] 160 mg/dL Critically high 74-106 [facility] Comment on above: Performed By: #### C VDTBH #### [facility] [address] [place] [address] Dr. Ramses Dumas Potassium [Moles/Vol] 4.0 mmol/L Normal 3.5-5.1 [facility] Comment on above: Performed By: #### C VDTBH #### [facility] [address] [place] [address] Dr. Ramses Dumas Protein [Mass/Vol] 6.0 g/dL Critically low 6.4-8.2 [facility] Comment on above: Performed By: #### C VDTBH #### [facility] [address] [place] [address] Dr. Ramses Dumas Sodium [Moles/Vol] 138 mmol/L Normal 136-145 [facility] Comment on above: Performed By: #### C VDTBH #### [facility] [address] [place] [address] Dr. Ramses Dumas Urea nitrogen [Mass/Vol] 6.0 mg/dL Critically low 7.0-18.0 [facility] Comment on above: Performed By: #### C VDTBH #### [facility] [address] [place] [address] Dr. Ramses Dumas Urea nitrogen/Creatinine [Mass ratio] 8.6 mg/mg Normal [facility] Comment on above: Performed By: #### C VDTBH #### [facility] [address] [place] [address] Dr. Ramses Dumas CBC AUTO DIFFon 08-23-2022 BASO # 0.0 103/ul Normal 0.0-0.1 [facility] Comment on above: Performed By: #### U RCX #### [facility] [address] [address] [address] Ramses Dumas Basophils/100 WBC (Bld) 0.2 % Normal 0.2-2.0 [facility] Comment on above: Performed By: #### U RCX #### [facility] [address] [place] [address] Dr. Ramses Dumas EO # 0.0 103/ul Normal 0.0-0.7 [facility] Comment on above: Performed By: #### U RCX #### [facility] [address] [place] [address] Dr. Ramses Dumas Eosinophils/100 WBC (Bld) 0.1 % Critically low 0.9-7.0 [facility] Comment on above: Performed By: #### U RCX #### [facility] [address] [place] [address] Dr. Ramses Dumas Erythrocyte distribution width (RBC) [Ratio] 13.4 % Normal 11.0-15.0 [facility] Comment on above: Performed By: #### U RCX #### [facility] [address] [place] [address] Dr. Ramses Dumas Hematocrit (Bld) [Volume fraction] 34.1 % Critically low 36.0-48.0 [facility] Comment on above: Performed By: #### U RCX #### [facility] [address] [place] [address] Dr. Ramses Dumas Hemoglobin (Bld) [Mass/Vol] 10.9 g/dL Critically low 12.0-16.0 [facility] Comment on above: Performed By: #### U RCX #### [facility] [address] [place] [address] Dr. Ramses Dumas IG # 0.02 10e3/ul Normal 0.00-0.03 [facility] Comment on above: Performed By: #### U RCX #### [facility] [address] [place] [address] Dr. Ramses Dumas IG % 0.2 % Normal 0.0-0.5 [facility] Comment on above: Performed By: #### U RCX #### [facility] [address] [address] [address] Ramses Dumas LYMPH # 0.7 103/ul Critically low 1.2-3.8 [facility] Comment on above: Performed By: #### U RCX #### [facility] [address] [address] [address] Ramses Dumas Lymphocytes/100 WBC (Bld) 6.9 % Critically low 20.5-60.0 [facility] Comment on above: Performed By: #### U RCX #### [facility] [address] [address] [address] Ramses Dumas MANUAL DIFF REQ NO Normal [facility] Comment on above: Performed By: #### U RCX #### [facility] [address] [address] [address] Ramses Dumas MCH (RBC) [Entitic mass] 26.1 pg Critically low 26.7-34.0 [facility] Comment on above: Performed By: #### U RCX #### [facility] [address] [address] [address] Ramses Dumas MCHC (RBC) [Mass/Vol] 32.0 g/dL Normal 29.9-35.2 [facility] Comment on above: Performed By: #### U RCX #### [facility] [address] [address] [address] Ramses Dumas MCV (RBC) [Entitic vol] 81.8 fL Normal 81.0-99.0 [facility] Comment on above: Performed By: #### U RCX #### [facility] [address] [address] [address] Ramses Dumas MONO # 0.6 103/ul Normal 0.3-0.8 [facility] Comment on above: Performed By: #### U RCX #### [facility] [address] [address] [address] Ramses Dumas Monocytes/100 WBC (Bld) 5.9 % Normal 1.7-12.0 [facility] Comment on above: Performed By: #### U RCX #### [facility] [address] [address] [address] Ramses Dumas NEUT # 8.2 103/ul Critically high 1.4-6.5 [facility] Comment on above: Performed By: #### U RCX #### [facility] [address] [address] [address] Ramses Dumas Neutrophils/100 WBC (Bld) 86.7 % Critically high 43.0-75.0 [facility] Comment on above: Performed By: #### U RCX #### [facility] [address] [address] [address] Ramses Dumas Platelet mean volume (Bld) [Entitic vol] 9.4 fL Critically low 9.5-13.5 [facility] Comment on above: Performed By: #### U RCX #### [facility] [address] [address] [address] Ramses Dumas PLT 235 103/ul Normal 150-450 [facility] Comment on above: Performed By: #### U RCX #### [facility] [address] [address] [address] Ramses Dumas RBC 4.17 106/ul Critically low 4.20-5.40 [facility] Comment on above: Performed By: #### U RCX #### [facility] [address] [address] [address] Ramses Dumas WBC 9.5 103/ul Normal 4.0-11.0 [facility] Comment on above: Performed By: #### U RCX #### [facility] [address] [address] [address] Ramses Dumas PROF 14(COMP METB)on 022 Albumin [Mass/Vol] 2.6 g/dL Critically low 3.4-5.0 [facility] Comment on above: Performed By: #### U KJ 24 #### [facility] [address] [place] [address] Dr. Ramses Dumas Albumin/Globulin [Mass ratio] 0.8 {ratio} Normal [facility] Comment on above: Performed By: #### U KJ 24 #### [facility] [address] [address] [address] Ramses Dumas ALP [Catalytic activity/Vol] 82 U/L Normal 46-116 [facility] Comment on above: Performed By: #### U KJ 24 #### [facility] [address] [address] [address] Ramses Dumas ALT [Catalytic activity/Vol] 257 U/L Critically high 14-59 [facility] Comment on above: Performed By: #### U KJ 24 #### [facility] [address] [address] [address] Ramses Dumas Anion gap [Moles/Vol] 10.3 mmol/L Normal [facility] Comment on above: Performed By: #### U KJ 24 #### [facility] [address] [address] [address] Ramses Dumas AST [Catalytic activity/Vol] 196 U/L Critically high 15-37 [facility] Comment on above: Performed By: #### U KJ 24 #### [facility] [address] [address] [address] Ramses Dumas Bilirubin [Mass/Vol] 0.5 mg/dL Normal 0.2-1.0 [facility] Comment on above: Performed By: #### U KJ 24 #### [facility] [address] [address] [address] Ramses Dumas Calcium [Mass/Vol] 7.8 mg/dL Critically low 8.5-10.1 [facility] Comment on above: Performed By: #### U KJ 24 #### [facility] [address] [address] [address] Ramses Dumas Chloride [Moles/Vol] 104 mmol/L Normal 98-107 [facility] Comment on above: Performed By: #### U JK 24 #### [facility] [address] [address] [address] Ramses Dumas CO2 [Moles/Vol] 24.4 mmol/L Normal 21.0-32.0 [facility] Comment on above: Performed By: #### U KJ 24 #### [facility] [address] [address] [address] Ramses Dumas Creatinine [Mass/Vol] 1.09 mg/dL Critically high 0.55-1.02 [facility] Comment on above: Performed By: #### U KJ 24 #### [facility] [address] [address] [address] Ramses Dumas EGFR-AF BELARUSIAN >60 Normal >=60 [facility] Comment on above: Performed By: #### U KJ 24 #### [facility] [address] [address] [address] Ramses Dumas EGFR-NON AF BELARUSIAN 59 mL/min/1.73m2 Critically low >=60 [facility] Comment on above: Performed By: #### U KJ 24 #### [facility] [address] [address] [address] Ramses Dumas Globulin (S) [Mass/Vol] 3.3 g/dL Normal [facility] Comment on above: Performed By: #### U KJ 24 #### [facility] [address] [address] [address] Ramses Dumas Glucose [Mass/Vol] 143 mg/dL Critically high 74-106 [facility] Comment on above: Performed By: #### U KJ 24 #### [facility] [address] [address] [address] Ramses Dumas Potassium [Moles/Vol] 3.7 mmol/L Normal 3.5-5.1 [facility] Comment on above: Performed By: #### U KJ 24 #### [facility] [address] [address] [address] Ramses Dumas Protein [Mass/Vol] 5.9 g/dL Critically low 6.4-8.2 [facility] Comment on above: Performed By: #### U KJ 24 #### [facility] [address] [address] [address] Ramses Dumas Sodium [Moles/Vol] 135 mmol/L Critically low 136-145 [facility] Comment on above: Performed By: #### U KJ 24 #### [facility] [address] [address] [address] Ramses Dumas Urea nitrogen [Mass/Vol] 10.0 mg/dL Normal 7.0-18.0 [facility] Comment on above: Performed By: #### U KJ 24 #### [facility] [address] [place] [address] Dr. Ramses Dumas Urea nitrogen/Creatinine [Mass ratio] 9.2 mg/mg Normal [facility] Comment on above: Performed By: #### U KJ 24 #### [facility] [address] [place] [address] Dr. Ramses Dumas BLOOD CULTURE ID PANELon A. baumannii Not detected Normal NOT DETECTED [facility] Comment on above: Performed By: #### C VDTBH #### [facility] [address] [place] [address] Dr. Ramses Dumas Bacteriodes fragilis Not detected Normal NOT DETECTED [facility] Comment on above: Performed By: #### C VDTBH #### [facility] [address] [place] [address] Dr. Ramses BAKER CONTROLS PASSED Normal [facility] Comment on above: Performed By: #### C VDTBH #### [facility] [address] [place] [address] Dr. Ramses Dumas BCIDBTHD BLOOD CULTURE BOTTLE INFORMATION Normal [facility] Comment on above: Performed By: #### C VDTBH #### [facility] [address] [place] [address] Dr. Ramses Dumas BCIDHD1 ANTIMICROBIAL RESISTANCE GENES Normal [facility] Comment on above: Performed By: #### C VDTBH #### [facility] [address] [place] [address] Dr. Ramses Dumas BCIDHD2 SEE BELOW Normal [facility] Comment on above: Result Comment: Note : Antimicrobial resitance can occur via multiple mechanisms. A Not Detected result for the [employer] antomicrobial resistance gene assays does not indicate antimicrobial susceptibility. Subculturing is required for species identification and susceptibility testing of isolates. Performed By: #### C VDTBH #### [facility] [address] [place] [address] Dr. Ramses Dumas BCIDHD3 Positive Normal [facility] Comment on above: Performed By: #### C VDTBH #### [facility] [address] [place] [address] Dr. Ramses Dumas BCIDHD4 Negative Normal [facility] Comment on above: Performed By: #### C VDTBH #### [facility] [address] [place] [address] Dr. Ramses Dumas BCIDHD5 YEAST [facility] Comment on above: Performed By: #### C VDTBH #### [facility] [address] [place] [address] Dr. Ramses Garcia Set: Set 1 [facility] Comment on above: Performed By: #### C VDTBH #### [facility] [address] [place] [address] Dr. Ramses Dumas Bottle: Pediatric Normal [facility] Comment on above: Performed By: #### C VDTBH #### [facility] [address] [place] [address] Dr. Ramses Vincent. neoformans/gattii Not detected Normal NOT DETECTED [facility] Comment on above: Performed By: #### C VDTBH #### [facility] [address] [place] [address] Dr. Ramses Dumas Kim albicans Not detected Normal NOT DETECTED [facility] Comment on above: Performed By: #### C VDTBH #### [facility] [address] [place] [address] Dr. Ramses Dumas Kim auris Not detected Normal NOT DETECTED [facility] Comment on above: Performed By: #### C VDTBH #### [facility] [address] [place] [address] Dr. Ramses Dumas Kim glabrata Not detected Normal NOT DETECTED [facility] Comment on above: Performed By: #### C VDTBH #### [facility] [address] [place] [address] Dr. Ramses Dumas Kim Krusei Not detected Normal NOT DETECTED [facility] Comment on above: Performed By: #### C VDTBH #### [facility] [address] [place] [address] Dr. Ramses Dumas Kim Parapsilosis Not detected Normal NOT DETECTED [facility] Comment on above: Performed By: #### C VDTBH #### [facility] [address] [place] [address] Dr. Ramses Dumas Kim Tropicalis Not detected Normal NOT DETECTED [facility] Comment on above: Performed By: #### C VDTBH #### [facility] [address] [place] [address] Dr. Ramses Dumas CTX-M Resistant Gene Not Applicable Normal NOT DETECTE D [facility] Comment on above: Performed By: #### C VDTBH #### [facility] [address] [place] [address] Dr. Ramses Dumas E. Cloacae complex Not detected Normal NOT DETECTED [facility] Comment on above: Performed By: #### C VDTBH #### [facility] [address] [place] [address] Dr. Ramses Dumas E. faecalis Not detected Normal NOT DETECTED [facility] Comment on above: Performed By: #### C VDTBH #### [facility] [address] [place] [address] Dr. Ramses Dumas E. faecium Not detected Normal NOT DETECTED [facility] Comment on above: Performed By: #### C VDTBH #### [facility] [address] [place] [address] Dr. Ramses Dumas Enterobacteriaceae Not detected Normal NOT DETECTED [facility] Comment on above: Performed By: #### C VDTBH #### [facility] [address] [place] [address] Dr. Ramses Dumas Escherichia coli Not detected Normal NOT DETECTED [facility] Comment on above: Performed By: #### C VDTBH #### [facility] [address] [place] [address] Dr. Ramses Dumas H. influenzae Not detected Normal NOT DETECTED [facility] Comment on above: Performed By: #### C VDTBH #### [facility] [address] [place] [address] Dr. Ramses Dumas IMP Resistant Gene Not Applicable Normal NOT DETECTED [facility] Comment on above: Performed By: #### C VDTBH #### [facility] [address] [place] [address] Dr. Ramses Betancourt. oxytoca Not detected Normal NOT DETECTED [facility] Comment on above: Performed By: #### C VDTBH #### [facility] [address] [place] [address] Dr. Ramses Dumas K. pneumoniae Not detected Normal NOT DETECTED [facility] Comment on above: Performed By: #### C VDTBH #### [facility] [address] [place] [address] Dr. Ramses Dumas Klebsiella aerogenes Not detected Normal NOT DETECTED [facility] Comment on above: Performed By: #### C VDTBH #### [facility] [address] [place] [address] Dr. Ramses Dumas KPC Resistant Gene Not detected Normal NOT DETECTED [facility] Comment on above: Performed By: #### C VDTBH #### [facility] [address] [place] [address] Dr. Ramses Dumas List. monocytogenes Not detected Normal NOT DETECTED [facility] Comment on above: Performed By: #### C VDTBH #### [facility] [address] [place] [address] Dr. Ramses Dumas Mcr-1 Resistant Gene Not Applicable Normal NOT DETECTE D [facility] Comment on above: Performed By: #### C VDTBH #### [facility] [address] [place] [address] Dr. Ramses Dumas mecA/C Not Applicable Normal NOT DETECTED [facility] Comment on above: Performed By: #### C VDTBH #### [facility] [address] [place] [address] Dr. Ramses Dumas mecA/C MREJ Not Applicable Normal NOT DETECTED [facility] Comment on above: Performed By: #### C VDTBH #### [facility] [address] [place] [address] Dr. Ramses Dumas N. meningitidis Not detected Normal NOT DETECTED [facility] Comment on above: Performed By: #### C VDTBH #### [facility] [address] [place] [address] Dr. Ramses Dumas NDM Resistant Gene Not Applicable Normal NOT DETECTED [facility] Comment on above: Performed By: #### C VDTBH #### [facility] [address] [place] [address] Dr. Ramses Dumas Oxa-48-like Not Applicable Normal NOT DETECTED [facility] Comment on above: Performed By: #### C VDTBH #### [facility] [address] [place] [address] Dr. Ramses Dumas Proteus Not detected Normal NOT DETECTED [facility] Comment on above: Performed By: #### C VDTBH #### [facility] [address] [place] [address] Dr. Ramses Dumas Pseud. aeruginosa Not detected Normal NOT DETECTED [facility] Comment on above: Performed By: #### C VDTBH #### [facility] [address] [place] [address] Dr. Ramses Dumas S. maltophilia Not detected Normal NOT DETECTED [facility] Comment on above: Performed By: #### C VDTBH #### [facility] [address] [place] [address] Dr. Ramses Dumas Salmonella Not detected Normal NOT DETECTED [facility] Comment on above: Performed By: #### C VDTBH #### [facility] [address] [place] [address] Dr. Ramses Dumas Seratia marcescens Not detected Normal NOT DETECTED [facility] Comment on above: Performed By: #### C VDTBH #### [facility] [address] [place] [address] Dr. Ramses Dumas Site: unknown/not given Normal [facility] Comment on above: Performed By: #### C VDTBH #### [facility] [address] [place] [address] Dr. Ramses Dumas Stapphillip. aureus Not detected Normal NOT DETECTED [facility] Comment on above: Performed By: #### C VDTBH #### [facility] [address] [place] [address] Dr. Ramses Dumas Stapphillip. epidermidis Not detected Normal NOT DETECTED [facility] Comment on above: Performed By: #### C VDTBH #### [facility] [address] [place] [address] Dr. Ramses Dumas Stapphillip. lugdunensis Not detected Normal NOT DETECTED [facility] Comment on above: Performed By: #### C VDTBH #### [facility] [address] [place] [address] Dr. Ramses Dumas Staphylococcus Not detected Normal NOT DETECTED [facility] Comment on above: Performed By: #### C VDTBH #### [facility] [address] [place] [address] Dr. Ramses Dumas Strep. agalactiae Detected Critically abnormal NOT DETECTED [facility] Comment on above: Performed By: #### C VDTBH #### [facility] [address] [place] [address] Dr. Ramses Dumas Strep. pneumoniae Not detected Normal NOT DETECTED [facility] Comment on above: Performed By: #### C VDTBH #### [facility] [address] [place] [address] Dr. Ramses Dumas Strep. pyogenes Not detected Normal NOT DETECTED [facility] Comment on above: Performed By: #### C VDTBH #### [facility] [address] [place] [address] Dr. Ramses Dumas Streptococcus Detected Critically abnormal NOT DETECTED [facility] Comment on above: Performed By: #### C VDTBH #### [facility] [address] [place] [address] Dr. Ramses Dumas Efrain/B Resist. Gene Not detected Normal NOT DETECTED [facility] Comment on above: Performed By: #### C VDTBH #### [facility] [address] [place] [address] Dr. Ramses Dumas VIM Resistant Gene Not Applicable Normal NOT DETECTED [facility] Comment on above: Performed By: #### C VDTBH #### [facility] [address] [place] [address] Dr. Ramses Dumas CBC AUTO DIFFon 08-22-2022 BASO # 0.1 103/ul Normal 0.0-0.1 [facility] Comment on above: Performed By: #### U KJ 24 #### [facility] [address] [place] [address] Dr. Ramses Dumas Basophils/100 WBC (Bld) 0.7 % Normal 0.2-2.0 [facility] Comment on above: Performed By: #### U KJ 24 #### [facility] [address] [place] [address] Dr. Ramses Dumas EO # 0.1 103/ul Normal 0.0-0.7 [facility] Comment on above: Performed By: #### U KJ 24 #### [facility] [address] [place] [address] Dr. Ramses Dumas Eosinophils/100 WBC (Bld) 1.7 % Normal 0.9-7.0 [facility] Comment on above: Performed By: #### U KJ 24 #### [facility] [address] [place] [address] Dr. Ramses Dumas Erythrocyte distribution width (RBC) [Ratio] 13.2 % Normal 11.0-15.0 [facility] Comment on above: Performed By: #### U KJ 24 #### [facility] [address] [place] [address] Dr. Ramses Dumas Hematocrit (Bld) [Volume fraction] 39.8 % Normal 36.0-48.0 [facility] Comment on above: Performed By: #### U KJ 24 #### [facility] [address] [place] [address] Dr. Ramses Dumas Hemoglobin (Bld) [Mass/Vol] 12.9 g/dL Normal 12.0-16.0 [facility] Comment on above: Performed By: #### U KJ 24 #### [facility] [address] [address] [address] Ramses Dumas IG # 0.02 10e3/ul Normal 0.00-0.03 [facility] Comment on above: Performed By: #### U KJ 24 #### [facility] [address] [place] [address] Dr. Ramses Dumas IG % 0.2 % Normal 0.0-0.5 [facility] Comment on above: Performed By: #### U KJ 24 #### [facility] [address] [place] [address] Dr. Ramses Dumas LYMPH # 3.2 103/ul Normal 1.2-3.8 [facility] Comment on above: Performed By: #### U KJ 24 #### [facility] [address] [place] [address] Dr. Ramses Dumas Lymphocytes/100 WBC (Bld) 40.0 % Normal 20.5-60.0 [facility] Comment on above: Performed By: #### U KJ 24 #### [facility] [address] [place] [address] Dr. Ramses Dumas MANUAL DIFF REQ NO Normal [facility] Comment on above: Performed By: #### U KJ 24 #### [facility] [address] [place] [address] Dr. Ramses Dumas MCH (RBC) [Entitic mass] 26.6 pg Critically low 26.7-34.0 [facility] Comment on above: Performed By: #### U KJ 24 #### [facility] [address] [place] [address] Dr. Ramses Dumas MCHC (RBC) [Mass/Vol] 32.4 g/dL Normal 29.9-35.2 [facility] Comment on above: Performed By: #### U KJ 24 #### [facility] [address] [place] [address] Dr. Ramses Dumas MCV (RBC) [Entitic vol] 82.1 fL Normal 81.0-99.0 [facility] Comment on above: Performed By: #### U KJ 24 #### [facility] [address] [place] [address] Dr. Ramses Dumas MONO # 0.6 103/ul Normal 0.3-0.8 [facility] Comment on above: Performed By: #### U KJ 24 #### [facility] [address] [place] [address] Dr. Ramses Dumas Monocytes/100 WBC (Bld) 7.5 % Normal 1.7-12.0 [facility] Comment on above: Performed By: #### U KJ 24 #### [facility] [address] [place] [address] Dr. Ramses Dumas NEUT # 4.0 103/ul Normal 1.4-6.5 [facility] Comment on above: Performed By: #### U KJ 24 #### [facility] [address] [place] [address] Dr. Ramses Dumas Neutrophils/100 WBC (Bld) 49.9 % Normal 43.0-75.0 [facility] Comment on above: Performed By: #### U KJ 24 #### [facility] [address] [place] [address] Dr. Ramses Dumas Platelet mean volume (Bld) [Entitic vol] 9.3 fL Critically low 9.5-13.5 [facility] Comment on above: Performed By: #### U KJ 24 #### [facility] [address] [place] [address] Dr. Ramses Dumas PLT 354 103/ul Normal 150-450 [facility] Comment on above: Performed By: #### U KJ 24 #### [facility] [address] [place] [address] Dr. Ramses Dumas RBC 4.85 106/ul Normal 4.20-5.40 [facility] Comment on above: Performed By: #### U KJ 24 #### [facility] [address] [place] [address] Dr. Ramses Dumas WBC 8.1 103/ul Normal 4.0-11.0 [facility] Comment on above: Performed By: #### U KJ 24 #### [facility] [address] [place] [address] ABD/PELVIS WO CONon [...] KESHIA IRIZARRY Date: 2022-08-22 07:04 Normal [facility] Covid-19 PCR (CVDTB)on SARS-CoV-2 (COVID-19) RNA FRANCESCA+probe Ql (Unsp spec) Not detected Normal NOT DETECTED [facility] Comment on above: Result Comment: [...] for this test is supported by the [employer] and Human Service's declaration that [...] used). Performed By: #### C MP #### [facility] [address] [place] [address] Dr. Ramses Dumas ER URINE PROFILEon 2 Bilirubin Ql (U) Negative Normal NEGATIVE [facility] Comment on above: Performed By: #### U RCX #### [facility] [address] [place] [address] Dr. Ramses Dumas Clarity (U) CLEAR Normal CLEAR [facility] Comment on above: Performed By: #### U RCX #### [facility] [address] [place] [address] Dr. Ramses Dumas Color (U) LT. YELLOW Normal YELLOW [facility] Comment on above: Performed By: #### U RCX #### [facility] [address] [place] [address] Dr. Ramses Dumas ERUWalter A micrscopic examination will be performed if indicated. Normal [facility] Comment on above: Performed By: #### U RCX #### [facility] [address] [place] [address] Dr. Ramses Dumas Glucose Ql (U) Negative Normal NEGATIVE [facility] Comment on above: Performed By: #### U RCX #### [facility] [address] [place] [address] Dr. Ramses Dumas Hemoglobin Ql (U) SMALL Abnormal NEGATIVE [facility] Comment on above: Performed By: #### U RCX #### [facility] [address] [place] [address] Dr. Ramses Dumas Ketones Ql (U) Negative Normal NEGATIVE [facility] Comment on above: Performed By: #### U RCX #### [facility] [address] [place] [address] Dr. Ramses Dumas LEUKOCYTES SMALL Abnormal NEGATIVE [facility] Comment on above: Performed By: #### U RCX #### [facility] [address] [place] [address] Dr. Ramses Dumas Nitrite Ql (U) Negative Normal NEGATIVE [facility] Comment on above: Performed By: #### U RCX #### [facility] [address] [place] [address] Dr. Ramses Dumas pH (U) 7.0 [pH] Normal 5-9 [facility] Comment on above: Performed By: #### U RCX #### [facility] [address] [place] [address] Dr. Ramses Dumas Protein (U) [Mass/Vol] 30 mg/dL Abnormal NEGAT CHRIS/ TRACE [facility] Comment on above: Performed By: #### U RCX #### [facility] [address] [place] [address] Dr. Ramses Dumas SPEC GRAVITY 1.020 Normal 1.005-<=1.02 5 [facility] Comment on above: Performed By: #### U RCX #### [facility] [address] [place] [address] Dr. Ramses Dumas UR MICRO IND INDICATED Normal [facility] Comment on above: Performed By: #### U RCX #### [facility] [address] [place] [address] Dr. Ramses Dumas Urobilinogen Qn (U) 0.2 {Lucero'U}/dL Normal 0.2 - 1. 0 [facility] Comment on above: Performed By: #### U RCX #### [facility] [address] [place] [address] Dr. Ramses Dumas LACTATE/LACTIC ACIDon 2021 Lactate [Moles/Vol] 2.3 mmol/L Critically high 0.4-1.9 [facility] Comment on above: Performed By: #### U RCX #### [facility] [address] [place] [address] Dr. Ramses Dumas URon 08-22-2022 , QUAL Negative Normal NEGATIVE [facility] Comment on above: Performed By: #### U RCX #### [facility] [address] [address] [address] Ramses Dumas PROF 14(COMP METB)on 022 Albumin [Mass/Vol] 3.5 g/dL Normal 3.4-5.0 [facility] Comment on above: Performed By: #### U RCX #### [facility] [address] [address] [address] Ramses Dumas Albumin/Globulin [Mass ratio] 0.9 {ratio} Normal [facility] Comment on above: Performed By: #### U RCX #### [facility] [address] [address] [address] Ramses Dumas ALP [Catalytic activity/Vol] 92 U/L Normal 46-116 [facility] Comment on above: Performed By: #### U RCX #### [facility] [address] [place] [address] Dr. Ramses Dumas ALT [Catalytic activity/Vol] 139 U/L Critically high 14-59 [facility] Comment on above: Performed By: #### U RCX #### [facility] [address] [address] [address] Ramses Dumas Anion gap [Moles/Vol] 10.2 mmol/L Normal [facility] Comment on above: Performed By: #### U RCX #### [facility] [address] [address] [address] Ramses Dumas AST [Catalytic activity/Vol] 112 U/L Critically high 15-37 [facility] Comment on above: Performed By: #### U RCX #### [facility] [address] [address] [address] Ramses Dumas Bilirubin [Mass/Vol] 0.2 mg/dL Normal 0.2-1.0 [facility] Comment on above: Performed By: #### U RCX #### [facility] [address] [address] [address] Ramses Dumas Calcium [Mass/Vol] 8.8 mg/dL Normal 8.5-10.1 [facility] Comment on above: Performed By: #### U RCX #### [facility] [address] [address] [address] Ramses Dumas Chloride [Moles/Vol] 105 mmol/L Normal 98-107 [facility] Comment on above: Performed By: #### U RCX #### [facility] [address] [address] [address] Ramses Dumas CO2 [Moles/Vol] 26.3 mmol/L Normal 21.0-32.0 [facility] Comment on above: Performed By: #### U RCX #### [facility] [address] [address] [address] Ramses Dumas Creatinine [Mass/Vol] 0.95 mg/dL Normal 0.55-1.02 [facility] Comment on above: Performed By: #### U RCX #### [facility] [address] [place] [address] Dr. Ramses Dumas EGFR-AF BELARUSIAN >60 Normal >=60 [facility] Comment on above: Performed By: #### U RCX #### [facility] [address] [address] [address] Ramses Dumas EGFR-NON AF BELARUSIAN >60 Normal >=60 [facility] Comment on above: Performed By: #### U RCX #### [facility] [address] [address] [address] Ramses Dumas Globulin (S) [Mass/Vol] 3.9 g/dL Normal [facility] Comment on above: Performed By: #### U RCX #### [facility] [address] [address] [address] Ramses Dumas Glucose [Mass/Vol] 137 mg/dL Critically high 74-106 [facility] Comment on above: Performed By: #### U RCX #### [facility] [address] [address] [address] Ramses Dumas Potassium [Moles/Vol] 3.5 mmol/L Normal 3.5-5.1 [facility] Comment on above: Performed By: #### U RCX #### [facility] [address] [address] [address] Ramses Dumas Protein [Mass/Vol] 7.4 g/dL Normal 6.4-8.2 [facility] Comment on above: Performed By: #### U RCX #### [facility] [address] [address] [address] Ramses Dumas Sodium [Moles/Vol] 138 mmol/L Normal 136-145 [facility] Comment on above: Performed By: #### U RCX #### [facility] [address] [place] [address] Dr. Ramses Dumas Urea nitrogen [Mass/Vol] 11.0 mg/dL Normal 7.0-18.0 [facility] Comment on above: Performed By: #### U RCX #### [facility] [address] [place] [address] Dr. Ramses Dumas Urea nitrogen/Creatinine [Mass ratio] 11.6 mg/mg Normal [facility] Comment on above: Performed By: #### U RCX #### [facility] [address] [place] [address] Dr. Ramses Dumas URINE MICROSCOPIC ONLYon BACTERIA LARGE Abnormal NONE SEEN [facility] Comment on above: Performed By: #### U RCX #### [facility] [address] [place] [address] Dr. Ramses Dumas Bacteria identified Cx Nom (U) CX ALREADY ORDERED Normal [facility] Comment on above: Performed By: #### U RCX #### [facility] [address] [address] [address] Ramses Dumas CAST NONE SEEN Normal NONE SEEN [facility] Comment on above: Performed By: #### U RCX #### [facility] [address] [place] [address] Dr. Ramses Dumas Crystals LM Nom (Urine sed) NONE SEEN Normal NONE SEEN [facility] Comment on above: Performed By: #### U RCX #### [facility] [address] [place] [address] Dr. Ramses Dumas Epithelial cells LM Ql (Urine sed) MANY Abnormal NONE SEEN /RARE [facility] Comment on above: Performed By: #### U RCX #### [facility] [address] [place] [address] Dr. Ramses Dumas MUCOUS NONE SEEN Normal NONE SEEN [facility] Comment on above: Performed By: #### U RCX #### [facility] [address] [place] [address] Dr. Ramses Dumas RBC 5-10 Abnormal 0-2 [facility] Comment on above: Performed By: #### U RCX #### [facility] [address] [place] [address] Dr. Ramses Dumas WBC 50-75 Abnormal NONE SEEN [facility] Comment on above: Performed By: #### U RCX #### [facility] [address] [place] [address] Dr. Ramses Dumas CULTURE URINEon 08-15-2022 CULTURE [...] F Tetracycline >=16 R F Normal [facility] Comment on above: Performed By: #### U RCX #### [facility] [address] [place] [address] Dr. Ramses Dumas ACETAMINOPHENon 08-13-2022 Acetaminophen [Mass/Vol] ug/mL Critically low 10.0-30.0 [facility] Comment on above: Performed By: #### U RCX #### [facility] [address] [place] [address] Dr. Ramses Dumas CBC AUTO DIFFon 08-13-2022 BASO # 0.1 103/ul Normal 0.0-0.1 [facility] Comment on above: Performed By: #### C VDTBH #### [facility] [address] [place] [address] Dr. Ramses Dumas Basophils/100 WBC (Bld) 0.8 % Normal 0.2-2.0 [facility] Comment on above: Performed By: #### C VDTBH #### [facility] [address] [place] [address] Dr. Ramses Dumas EO # 0.1 103/ul Normal 0.0-0.7 [facility] Comment on above: Performed By: #### C VDTBH #### [facility] [address] [place] [address] Dr. Ramses Dumas Eosinophils/100 WBC (Bld) 1.6 % Normal 0.9-7.0 [facility] Comment on above: Performed By: #### C VDTBH #### [facility] [address] [place] [address] Dr. Ramses Dumas Erythrocyte distribution width (RBC) [Ratio] 13.3 % Normal 11.0-15.0 [facility] Comment on above: Performed By: #### C VDTBH #### [facility] [address] [place] [address] Dr. Ramses Dumas Hematocrit (Bld) [Volume fraction] 40.6 % Normal 36.0-48.0 [facility] Comment on above: Performed By: #### C VDTBH #### [facility] [address] [place] [address] Dr. Ramses Dumas Hemoglobin (Bld) [Mass/Vol] 13.2 g/dL Normal 12.0-16.0 [facility] Comment on above: Performed By: #### C VDTBH #### [facility] [address] [place] [address] Dr. Ramses Dumas IG # 0.01 10e3/ul Normal 0.00-0.03 [facility] Comment on above: Performed By: #### C VDTBH #### [facility] [address] [place] [address] Dr. Ramses Dumas IG % 0.2 % Normal 0.0-0.5 [facility] Comment on above: Performed By: #### C VDTBH #### [facility] [address] [place] [address] Dr. Ramses Dumas LYMPH # 2.4 103/ul Normal 1.2-3.8 [facility] Comment on above: Performed By: #### C VDTBH #### [facility] [address] [place] [address] Dr. Ramses Dumas Lymphocytes/100 WBC (Bld) 37.7 % Normal 20.5-60.0 [facility] Comment on above: Performed By: #### C VDTBH #### [facility] [address] [place] [address] Dr. Ramses Dumas MANUAL DIFF REQ NO Normal [facility] Comment on above: Performed By: #### C VDTBH #### [facility] [address] [place] [address] Dr. Ramses Dumas MCH (RBC) [Entitic mass] 26.7 pg Normal 26.7-34.0 [facility] Comment on above: Performed By: #### C VDTBH #### [facility] [address] [place] [address] Dr. Ramses Dumas MCHC (RBC) [Mass/Vol] 32.5 g/dL Normal 29.9-35.2 [facility] Comment on above: Performed By: #### C VDTBH #### [facility] [address] [place] [address] Dr. Ramses Dumas MCV (RBC) [Entitic vol] 82.0 fL Normal 81.0-99.0 [facility] Comment on above: Performed By: #### C VDTBH #### [facility] [address] [place] [address] Dr. Ramses Dumas MONO # 0.6 103/ul Normal 0.3-0.8 [facility] Comment on above: Performed By: #### C VDTBH #### [facility] [address] [place] [address] Dr. Ramses Dumas Monocytes/100 WBC (Bld) 8.6 % Normal 1.7-12.0 [facility] Comment on above: Performed By: #### C VDTBH #### [facility] [address] [place] [address] Dr. Ramses Dumas NEUT # 3.3 103/ul Normal 1.4-6.5 [facility] Comment on above: Performed By: #### C VDTBH #### [facility] [address] [place] [address] Dr. Ramses Dumas Neutrophils/100 WBC (Bld) 51.1 % Normal 43.0-75.0 [facility] Comment on above: Performed By: #### C VDTBH #### [facility] [address] [place] [address] Dr. Ramses Dumas Platelet mean volume (Bld) [Entitic vol] 8.7 fL Critically low 9.5-13.5 [facility] Comment on above: Performed By: #### C VDTBH #### [facility] [address] [place] [address] Dr. Ramses Dumas PLT 409 103/ul Normal 150-450 [facility] Comment on above: Performed By: #### C VDTBH #### [facility] [address] [place] [address] Dr. Ramses Dumas RBC 4.95 106/ul Normal 4.20-5.40 [facility] Comment on above: Performed By: #### C VDTBH #### [facility] [address] [place] [address] Dr. Ramses Dumas WBC 6.4 103/ul Normal 4.0-11.0 [facility] Comment on above: Performed By: #### C VDTBH #### [facility] [address] [place] [address] Dr. Ramses Dumas Covid-19 PCR ([facility])on 07-20 SARS-CoV-2 (COVID-19) RNA FRANCESCA+probe Ql (Unsp spec) Not detected Normal NOT DETECTED [facility] Comment on above: Result Comment: [...] for this test is supported by the [employer] and [employer] Service's declaration that [...] used). Performed By: #### C VDTB #### [facility] [address] [place] [address] Dr. Ramses Dumas DRUG SCREEN RAPID (URINE)on 08-13-2022 AMP Negative Normal NEGATIVE [facility] Comment on above: Performed By: #### C BC #### [facility] [address] [place] [address] Dr. Ramses Dumas BAR Negative Normal NEGATIVE [facility] Comment on above: Performed By: #### C BC #### [facility] [address] [place] [address] Dr. Ramses Dumas BUP Negative Normal NEGATIVE [facility] Comment on above: Performed By: #### C BC #### [facility] [address] [place] [address] Dr. Ramses Dumas BZO Negative Normal NEGATIVE [facility] Comment on above: Performed By: #### C BC #### [facility] [address] [place] [address] Dr. Ramses Dumas ODILIA Negative Normal NEGATIVE [facility] Comment on above: Performed By: #### C BC #### [facility] [address] [place] [address] Dr. Ramses Dumas CUT-OFFS SEE BELOW Normal [facility] Comment on above: Result Comment: [...] ng/mL Performed By: #### C BC #### [facility] [address] [place] [address] Dr. Ramses Dumas DRUG CUT HEADER DRUG CLASS TEST SYST EM CUT-OFF CONCENTRATIONS ARE FOLLOWS: Normal [facility] Comment on above: Performed By: #### C BC #### [facility] [address] [place] [address] Dr. Ramses Dumas mAMP Negative Normal NEGATIVE [facility] Comment on above: Performed By: #### C BC #### [facility] [address] [place] [address] Dr. Ramses Dumas MTD Negative Normal NEGATIVE [facility] Comment on above: Performed By: #### C BC #### [facility] [address] [place] [address] Dr. Ramses Dumas OPI Negative Normal NEGATIVE [facility] Comment on above: Performed By: #### C BC #### [facility] [address] [place] [address] Dr. Ramses Dumas OXY Negative Normal NEGATIVE [facility] Comment on above: Performed By: #### C BC #### [facility] [address] [place] [address] Dr. Ramses Dumas PCP Negative Normal NEGATIVE [facility] Comment on above: Performed By: #### C BC #### [facility] [address] [place] [address] Dr. Ramses Dumas PPX Negative Normal NEGATIVE [facility] Comment on above: Performed By: #### C BC #### [facility] [address] [place] [address] Dr. Ramses Dumas TCA Negative Normal NEGATIVE [facility] Comment on above: Performed By: #### C BC #### [facility] [address] [place] [address] Dr. Ramses Dumas THC Negative Normal NEGATIVE [facility] Comment on above: Performed By: #### C BC #### [facility] [address] [place] [address] Dr. Ramses Dumas ER URINE PROFILEon 2 Bilirubin Ql (U) Negative Normal NEGATIVE [facility] Comment on above: Performed By: #### C BC #### [facility] [address] [place] [address] Dr. Ramses Dumas Clarity (U) CLEAR Normal CLEAR [facility] Comment on above: Performed By: #### C BC #### [facility] [address] [place] [address] Dr. Ramses Dumas Color (U) LT. YELLOW Normal YELLOW [facility] Comment on above: Performed By: #### C BC #### [facility] [address] [place] [address] Dr. Ramses Dumas ERUWalter A micrscopic examination will be performed if indicated. Normal [facility] Comment on above: Performed By: #### C BC #### [facility] [address] [place] [address] Dr. Ramses Dumas Glucose Ql (U) Negative Normal NEGATIVE [facility] Comment on above: Performed By: #### C BC #### [facility] [address] [place] [address] Dr. Ramess Dumas Hemoglobin Ql (U) LARGE Abnormal NEGATIVE [facility] Comment on above: Performed By: #### C BC #### [facility] [address] [place] [address] Dr. Ramses Dumas Ketones Ql (U) Negative Normal NEGATIVE [facility] Comment on above: Performed By: #### C BC #### [facility] [address] [place] [address] Dr. Ramses Dumas LEUKOCYTES LARGE Abnormal NEGATIVE [facility] Comment on above: Performed By: #### C BC #### [facility] [address] [place] [address] Dr. Ramses Dumas Nitrite Ql (U) Positive Abnormal NEGATIVE [facility] Comment on above: Performed By: #### C BC #### [facility] [address] [place] [address] Dr. Ramses Dumas pH (U) 6.0 [pH] Normal 5-9 [facility] Comment on above: Performed By: #### C BC #### [facility] [address] [place] [address] Dr. Ramses Dumas Protein (U) [Mass/Vol] 30 mg/dL Abnormal NEGAT CHRIS/ TRACE [facility] Comment on above: Performed By: #### C BC #### [facility] [address] [place] [address] Dr. Ramses Dumas SPEC GRAVITY >=1.030 Abnormal 1.005-<=1.02 5 [facility] Comment on above: Performed By: #### C BC #### [facility] [address] [place] [address] Dr. Ramses Dumas UR MICRO IND INDICATED Normal [facility] Comment on above: Performed By: #### C BC #### [facility] [address] [place] [address] Dr. Ramses Dumas Urobilinogen Qn (U) 0.2 {Lucero'U}/dL Normal 0.2 - 1. 0 [facility] Comment on above: Performed By: #### C BC #### [facility] [address] [place] [address] Dr. Rasmes Dumas ETHANOL (BLD ALC)on 08-13-20 ALC NOTE NOTE: 80 mg/dl is th e legal limit for a blood alcohol level Normal [facility] Comment on above: Performed By: #### B [id number] #### [facility] [address] [place] [address] Dr. Ramses Dumas Ethanol [Mass/Vol] mg/dL Normal [facility] Comment on above: Performed By: #### B LDCX2 #### [facility] [address] [place] [address] Dr. Ramses Dumas URon 08-13-2022 , QUAL Negative Normal NEGATIVE [facility] Comment on above: Performed By: #### C BC #### [facility] [address] [place] [address] Dr. Ramses Dumas PROF 14(COMP METB)on 022 Albumin [Mass/Vol] 3.8 g/dL Normal 3.4-5.0 [facility] Comment on above: Performed By: #### U RCX #### [facility] [address] [place] [address] Dr. Ramses Dumas Albumin/Globulin [Mass ratio] 0.9 {ratio} Normal [facility] Comment on above: Performed By: #### U RCX #### [facility] [address] [place] [address] Dr. Ramses Dumas ALP [Catalytic activity/Vol] 82 U/L Normal 46-116 [facility] Comment on above: Performed By: #### U RCX #### [facility] [address] [place] [address] Dr. Ramses Dumas ALT [Catalytic activity/Vol] 41 U/L Normal 14-59 [facility] Comment on above: Performed By: #### U RCX #### [facility] [address] [place] [address] Dr. Ramses Dumas Anion gap [Moles/Vol] 9.3 mmol/L Normal [facility] Comment on above: Performed By: #### U RCX #### [facility] [address] [place] [address] Dr. Ramses Dumas AST [Catalytic activity/Vol] 21 U/L Normal 15-37 [facility] Comment on above: Performed By: #### U RCX #### [facility] [address] [place] [address] Dr. Ramses Dumas Bilirubin [Mass/Vol] 0.3 mg/dL Normal 0.2-1.0 [facility] Comment on above: Performed By: #### U RCX #### [facility] [address] [place] [address] Dr. Ramses Dumas Calcium [Mass/Vol] 8.9 mg/dL Normal 8.5-10.1 [facility] Comment on above: Performed By: #### U RCX #### [facility] [address] [address] [address] Ramses Dumas Chloride [Moles/Vol] 105 mmol/L Normal 98-107 [facility] Comment on above: Performed By: #### U RCX #### [facility] [address] [address] [address] Ramses Dumas CO2 [Moles/Vol] 28.5 mmol/L Normal 21.0-32.0 [facility] Comment on above: Performed By: #### U RCX #### [facility] [address] [address] [address] Ramses Dumas Creatinine [Mass/Vol] 0.81 mg/dL Normal 0.55-1.02 [facility] Comment on above: Performed By: #### U RCX #### [facility] [address] [place] [address] Dr. Ramses Dumas EGFR-AF BELARUSIAN >60 Normal >=60 [facility] Comment on above: Performed By: #### U RCX #### [facility] [address] [address] [address] Ramses Dumas EGFR-NON AF BELARUSIAN >60 Normal >=60 [facility] Comment on above: Performed By: #### U RCX #### [facility] [address] [address] [address] Ramses Dumas Globulin (S) [Mass/Vol] 4.1 g/dL Normal [facility] Comment on above: Performed By: #### U RCX #### [facility] [address] [address] [address] Ramses Dumas Glucose [Mass/Vol] 100 mg/dL Normal 74-106 [facility] Comment on above: Performed By: #### U RCX #### [facility] [address] [address] [address] Ramses Dumas Potassium [Moles/Vol] 3.8 mmol/L Normal 3.5-5.1 [facility] Comment on above: Performed By: #### U RCX #### [facility] [address] [address] [address] Ramses Dumas Protein [Mass/Vol] 7.9 g/dL Normal 6.4-8.2 [facility] Comment on above: Performed By: #### U RCX #### [facility] [address] [place] [address] Dr. Ramses Dumas Sodium [Moles/Vol] 139 mmol/L Normal 136-145 [facility] Comment on above: Performed By: #### U RCX #### [facility] [address] [place] [address] Dr. Ramses Dumas Urea nitrogen [Mass/Vol] 10.0 mg/dL Normal 7.0-18.0 [facility] Comment on above: Performed By: #### U RCX #### [facility] [address] [place] [address] Dr. Ramses Dumas Urea nitrogen/Creatinine [Mass ratio] 12.3 mg/mg Normal [facility] Comment on above: Performed By: #### U RCX #### [facility] [address] [place] [address] Dr. Ramses Dumas SALICYLATEon 08-13-2022 SALICYLATE <2.8 Normal <=19.9 [facility] Comment on above: Performed By: #### U RCX #### [facility] [address] [place] [address] Dr. Ramses Dumas URINE MICROSCOPIC ONLYon BACTERIA LARGE Abnormal NONE SEEN [facility] Comment on above: Performed By: #### C BC #### [facility] [address] [place] [address] Dr. Ramses Dumas Bacteria identified Cx Nom (U) INDICATED Normal [facility] Comment on above: Performed By: #### C BC #### [facility] [address] [place] [address] Dr. Ramses Dumas CA OX CRYSTALS RARE Normal [facility] Comment on above: Performed By: #### C BC #### [facility] [address] [place] [address] Dr. Ramses Dumas CAST NONE SEEN Normal NONE SEEN [facility] Comment on above: Performed By: #### C BC #### [facility] [address] [place] [address] Dr. Ramses Dumas Crystals LM Nom (Urine sed) SEEN Abnormal NONE SEEN [facility] Comment on above: Performed By: #### C BC #### [facility] [address] [address] [address] Ramses Dumas Epithelial cells LM Ql (Urine sed) MODERATE Abnormal NONE SEEN /RARE [facility] Comment on above: Performed By: #### C BC #### [facility] [address] [place] [address] Dr. Ramses Dumas MUCOUS NONE SEEN Normal NONE SEEN [facility] Comment on above: Performed By: #### C BC #### [facility] [address] [place] [address] Dr. Ramses Dumas RBC 10-20 Abnormal 0-2 [facility] Comment on above: Performed By: #### C BC #### [facility] [address] [place] [address] Dr. Ramses Dumas WBC 20-50 Abnormal NONE SEEN [facility] Comment on above: Performed By: #### C BC #### [facility] [address] [place] [address] Dr. Ramses Dumas Pap IG,rfx Aptima HPV all pt hon 08-09-2022 . . Normal [facility] Comment on above: Performed By: #### C MP #### [facility] [address] [place] [address] Dr. Ramses Dumas DIAGNOSIS: Comment Abnormal [facility] Comment on above: Result Comment: EPIT HELIAL CELL ABNORMALITY. LOW GRADE SQUAMOUS INTRAEPITHELIAL LESION (LSIL). Performed By: #### C MP #### [facility] [address] [place] [address] Dr. Ramses Dumas Electronically signed by: Comment Normal [facility] Comment on above: Result Comment: Arnaud Joseph MD, Pathologist Performed By: #### C MP #### [facility] [address] [place] [address] Dr. Ramses Dumas HPV Aptima Negative Normal Negative [facility] Comment on above: Result Comment: This nucleic acid amplification test detects fourteen high-risk HPV types (16,18,31,33,35,39,45,51,52,56,58,59,66,68) without differentiation. Performed By: #### C MP #### [facility] [address] [place] [address] Dr. Ramses Dumas Methodology: Comment [facility] Comment on above: Result Comment: This liquid based ThinPrep(R) pap test was screened with the use of an image guided system. Performed By: #### C MP #### [facility] [address] [place] [address] Dr. Ramses Dumas Note: Comment Normal [facility] Comment on above: Result Comment: The Pap smear is a screening test designed to aid in the detection of premalignant and malignant conditions of the uterine cervix. It is not a diagnostic procedure and should not be used as the sole means of detecting cervical cancer. Both false-positive and false-negative reports do occur. . Performed By: #### C MP #### [facility] [address] [place] [address] Dr. Ramses Dumas Pathologist Provided ICD10 Comment [facility] Comment on above: Result Comment: [id number] Performed By: #### C MP #### [facility] [address] [place] [address] Dr. Ramses Dumas Performed by: Comment Normal [facility] Comment on above: Result Comment: Gail Ruano, Furnace Unloader (ASCP) Performed By: #### C MP #### [facility] [address] [place] [address] Dr. Ramses Dumas Reflex Criteria: Comment Normal [facility] Comment on above: Result Comment: See below for HPV testing results. . Performed By: #### C MP #### [facility] [address] [place], [place] [id number] Dr. Ramses Dumas Specimen adequacy: Comment Normal [facility] Comment on above: Result Comment: Sati sfactory for evaluation. Endocervical and/or squamous metaplastic cells (endocervical component) are present. Performed By: #### C MP #### [facility] [address] [address] [address] Ramses Dumas Vital Signs Date Time Vital Sign Value Performing Clinician Ronnie perez 04-10-2024 07:30-0400 Body temperature 98 [degF] MD Domingo Das Work Phone: [facility] 04-10-2024 07:30-0400 Diastolic blood pressure 73 mm[Hg] MD Domingo Das Work Phone: [facility] 04-10-2024 07:30-0400 Heart rate 75 /min MD Domingo Das Work Phone: [facility] 04-10-2024 07:30-0400 Respiratory rate 16 /min MD Domingo Das Work Phone: [facility] 04-10-2024 07:30-0400 SaO2% (BldA) [Mass fraction] 100 % MD Domingo Das Work Phone: [facility] 04-10-2024 07:30-0400 Systolic blood pressure 123 mm[Hg] MD Domingo Das Work Phone: [facility] 04-08-2024 22:44-0400 Body height 167.64 cm MD Domingo Das Work Phone: [facility] 04-08-2024 22:44-0400 Body weight 86.58 kg MD Domingo Das Work Phone: [facility] 03-20-2023 10:30-0400 Blood Pressure Location Nona VILLA [facility] 03-20-2023 10:30-0400 Diastolic blood pressure 73 mm[Hg] Nona VILLA [facility] 03-20-2023 10:30-0400 Heart rate 80 /min Nona VILLA [facility] 03-20-2023 10:30-0400 Respiratory rate 16 /min Nona VILLA [facility] 03-20-2023 10:30-0400 Systolic blood pressure 128 mm[Hg] Nona IDALMIS [facility] Encounters Encounter Date Encounter Type Care Provider Facility Start: 04-09-2024 Non-patient / Non-visit MD Vicente Das Work Phone: [facility] Work Phone: Start: 04-08-2024 End: 04-10-2024 Evaluation and management of inpatient MD Domingo Das Work Phone: [address] Work Phone: Start: 04-08-2024 ambulatory Domingo Das Facility: [facility] Start: 12-29-2023 End: 12-29-2023 ambulatory [place] Facility:[facility] Start: 12-17-2023 End: 12-17-2023 ambulatory CELIO VAN Not Available Start: 12-04-2023 End: 12-05-2023 ambulatory Nona VILLA Facility:[facility] Start: 12-04-2023 End: 12-04-2023 Patient encounter procedure Nona VILLA [facility] Start: 04-09-2023 End: 04-10-2023 ambulatory Nona VILLA Facility:CD:[id number] Start: 03-20-2023 End: 03-21-2023 ambulatory Nona VILLA Facility:[facility] Start: 03-20-2023 End: 03-20-2023 Patient encounter procedure Nona VILLA [facility] Start: 02-16-2023 End: 02-16-[address] DOMINGO DAS . Facility: Start: 02-02-2023 End: 02-02-[address] DOMINGO DAS . Facility: Start: 12-26-2022 End: 12-27-2022 ambulatory Nona VILLA Facility:[facility] Start: 12-26-2022 End: 12-26-2022 Patient encounter procedure Nona VILLA [facility] Start: 12-16-2022 End: 12-17-[address] NONA VILLA . Facility:[facility] Start: 12-15-2022 End: 12-16-[address] NONA VILLA . Facility:[facility] Start: 11-27-[address] DOMINGO DAS . Facili ty:[facility] Start: 11-07-2022 End: 11-07-[address] DOMINGO DAS . Facility: Start: 11-04-2022 Encounter for preprocedural cardiovascular examination DR JEFFERSON GIBBS . [facility] Start: 11-04-2022 Encounter for preprocedural laboratory examination DR JEFFERSON GIBBS . [facility] Start: 11-03-2022 End: 11-04-2022 Encounter for preprocedural cardiovascular examination DR DOMINGO DAS . Facility:[facility] Start: 11-03-2022 End: 11-04-[address] DOMINGO DAS . Facility: Start: 09-20-2022 Encounter for preprocedural laboratory examination DR NONA VILLA . [facility] Start: 09-18-2022 End: 09-18-[address] NONA VILLA . Facility:[facility] Start: 09-16-2022 End: 09-17-[address] NONA VILLA . Facility: Start: 09-16-2022 End: 09-17-2022 Encounter for preprocedural laboratory examination DR NONA VILLA . Facility:[facility] Start: 09-05-2022 End: 09-05-2022 ambulatory ORA BOND . Facility:[facility] Start: 09-04-2022 End: 09-04-2022 ambulatory DANIEL SANTIAGO Facility:[facility] Start: 09-04-2022 End: 09-04-2022 ambulatory Daniel Santiago PROFESSOR OF PSYCHIATRY.CHALK TESTER Work Phone: Urology Comment on above: NO SHOW (Primary Dx) Start: 09-04-2022 End: 09-04-2022 Telemedicine consultation with patient Daniel Santiago KONSTANTIN.CHALK TESTER Work Phone: [facility] Start: 08-28-2022 End: 08-29-[address] ERWIN MOORE Facility:[facility] Start: 08-22-2022 End: 08-24-[address] DOMINGO DAS . Facility:[facility] Start: 08-13-2022 End: 08-13-2022 ambulatory ORA BOND . Facility:[facility] Start: 07-31-2022 Encounter for cervic al smear to confirm findings of recent normal smear following initial abnormal smear DR JEFFERSON GIBBS . [facility] Start: 07-30-2022 End: 07-30-[address] [...] Date Care Activity Detail Author Start: 04-10-2024 [facility] Start: 06-21-2024 Referral to Cashier Manager [facility] Start: 04-08-2024 Hospital admission [facility] Start: 04-08-2024 [facility] Start: 06-19-2022 Influenza vaccination INFLUENZA (#1) [facility] Start: 10-19-2021 DEPRESSION ASSESSMENT DEPRESSION ASSESSMENT [facility] Start: 2021 HPV TESTING HPV TESTING [facility] Start: 2012 PAP TESTING PAP TESTING [facility] Start: 2010 Urine microalbumin profile DTAP,TDAP,TD (1 - Tdap) [facility] Start: 2009 HEPATITIS C SCREENING HEPATITIS C SCREENING [facility] Start: 2009 HIV SCREENING HIV SCREENING [facility] Start: 03-14-1992 COVID-19 VACCINE (#1) COVID-19 VACCINE (#1) [facility] Start: 1991 HEPATITIS B (1 of 3 - 3-dose series) HEPATITIS B (1 of 3 - 3-dose series) [facility] Patient Education Bipolar Disord er (DC) [facility] DC Instructions Know your Meds [facility] Work Phone: Patient referral [facility] Work Phone: Immunizations Immunization Date Immunization Notes Care Provider Beata moore 08-01-2019 influenza virus vaccine, unspecified formulation Nona VILLA [facility] 08-09-2018 tetanus toxoid, redu franco diphtheria toxoid, and acellular pertussis vaccine, adsorbed Nona VILLA [facility] 08-08-2018 influenza virus vaccine, unspecified formulation Nona VILLA [facility] 06-19-2004 hepatitis B vaccine, pediatric or pediatric/adolescent dosage Nona VILLA [facility] 03-27-2004 hepatitis B vaccine, pediatric or pediatric/adolescent dosage Nona VILLA [facility] 12-18-2003 hepatitis B vaccine, pediatric or pediatric/adolescent dosage Nona VILLA [facility] 12-18-2003 measles, mumps and rubella virus vaccine Nona VILLA [facility] 04-10-1993 DTaP, unspecified formulation Nona Allurent [facility] 04-10-1993 poliovirus vaccine, unspecified formulation Nona Allurent [facility] 12-28-1992 Hib, unspecified formulation Nona Allurent [facility] 12-28-1992 measles, mumps and rubella virus vaccine Nona VILLA [facility] 03-26-1992 Hib, unspecified formulation Nona Allurent [facility] 01-18-1992 Hib, unspecified formulation Nona VILLA [facility] 1991 Hib, unspecified formulation Nona VILLA [facility] Payers Date Payer Category Payer Self-pay 2021 Medicaid [place] TERM 09/17 [employer] [employer] [id number] 2021-Present [phone] [address] [place] [address] Medicaid [id number] 1991 Unknown [id number] 2.16.840.1.363873.3.579.2.593 1991 Unknown [id number] 2.16.840.1.764844.3.579.2.593 1991 Unknown [id number] 2.16.840.1.999643.3.579.2.593 1991 Unknown [id number] 2.16.840.1.952988.3.579.2.593 1991 Unknown [id number] 2.16.840.1.163358.3.579.2.593 1991 Unknown [id number] 2.16.840.1.492686.3.579.2.593 1991 Unknown [id number] 2.16.840.1.320764.3.579.2.593 1991 Unknown [id number] 2.16.840.1.160975.3.579.2.593 1991 Unknown [id number] 2.16.840.1.050479.3.579.2.593 1991 Unknown [id number] 2.16.840.1.938029.3.579.2.593 1991 Unknown [id number] 2.16.840.1.696705.3.579.2.593 1991 Unknown [id number] 2.16.840.1.758742.3.579.2.593 1991 Unknown [id number] 2.16.840.1.149274.3.579.2.593 1991 Unknown [id number] 2.16.840.1.534209.3.579.2.593 1991 Unknown [id number] 2.16.840.1.982857.3.579.2.593 1991 Unknown [id number] 2.16.840.1.578404.3.579.2.593 1991 Unknown [id number] 2.16.840.1.377103.3.579.2.727 1991 Unknown [id number] 2.16.840.1.095534.3.579.2.727 1991 Unknown [id number] 2.16.840.1.575731.3.579.2.727 1991 Unknown [id number] 2.16.840.1.621901.3.579.2.727 1991 Unknown [id number] 2.16.840.1.686708.3.579.2.1259 1959 Medicaid [id number] 1958 Self-pay [id number] 1959 Unknown [id number] Unknown [id number] 2.16.840.1.192807.3.579.2.531 Unknown [id number] 2.16.840.1.307665.3.579.2.531 Unknown [id number] 2.16.840.1.994014.3.579.2.531 Social History Date Type Detail Facility Tobacco smoking status [facility] Tobacco smoking consumption unknown [facility] Start: 1990 Sex Assigned At Not on file [facility] Start: 08-20-2021 End: 04-09-2024 Tobacco smoking status Never smoked tobacco (finding) [facility] Tobacco smoking status Never [facility] Sex Assigned At Female [facility] Start: 1990 Sex Assigned At Female F [facility] Goals Date Patient Goal Desired Activity /State Functional Status Date Assessment Result Facility 04-10-2024 Functional status Patient at Baseline [facility] Work Phone: 03-20-2023 Functional Status N/A [facility] Mental Status Date Assessment Result Facility 04-10-2024 Cognitive function Cognitive Sta tus Patient at Baseline [facility] Work Phone: Clinical Notes 07-03-2022 to 04-10-2024 Note Date & Type Note Facility 04-10-2024 Discharge summary Note Date/Time April 10, 2024 7:10am [facility] [address] [place] [id number] Discharge Summary Signed Patient: Diana Barriga MR#: [id number] : 1990 Acct:[id number] Age/Sex: 33 / F Adm Date: 4 Loc: 1S Room: 7O1242-[address]: Arnulfo Aviles MD Copies to: [...] Dr. Fenton but wants to switch to [employer]. Along with this patient is in marriage counseling with her current and that today's session was not good. Patient stated she needs to be home to take care of her kids, the custody [place], and her marriage. Patient upset because she missed her son's play and has plans to take kids to [place] tomorrow. Patient denies any suicidal ideation denies hallucinations denies racing thoughts. Patient reports that there is no changes in her appetite or sleep. Patient reports that she feels fine. She has tried a lot of medications in the past and believes none of them have worked. He is going to [place] for psych therapy. He wants to try [...] She has an appointment coming [facility] with [facility]. She deniedrecent suicide attempts or self [...] behaviors. Sherequested to leave AGAINST MEDICAL ADVICE. Pattient has continued to attend individual and group [...] Restriction Diet: Regular Instructions: Bipolar Disorder (DC), [facility] Behavioral Health DC Instructions, Know your Meds [...] signed by Arnulfo Aviles MD> 04/10/24 0929 [facility] Work Phone: 1(747) 734-268706-22-2024 History and physical note Author Arnulfo ornelas [facility] April 09, 2024 9:09am Note Date/Time April 09, 2024 8:43 am [facility] [address] [place] [address] Psychiatry H&P Signed Patient: Diana Barriga MR#: [id number] : 1990 Acct:[id number] Age/Sex: 33 / F Adm Date: 4 Loc: Room: [address] [place] [address] Type: ADM IN Attending Dr: Arnulfo Aviles [...] Dr. Fenton but wants to switch to [place]. Along with this patient is in marriage counseling with her current and that today's session was not good. Patient stated she needs to be home to take care of her kids, the custody [place], and her marriage. Patient upset because she missed her son's play and has plans to take kids to [place] tomorrow. Patient denies any suicidal ideation denies hallucinations denies racing thoughts. Patient reports that there is no changes in her appetite or sleep. Patient reports that she feels fine. She has tried a lot of medications in the past and believes none of them have worked. He is going to [place] for psych therapy. He wants to try therapy before any medications. 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 Review of symptoms: Constitutional: Denies chills [...] homicidally, denies suicidality Insight: Intact Judgment: Intact [facility] Medical History (Updated 08/14/22 @ 08:17 by [...] signed by Arnulfo Aviles MD> 04/09/24 0909 [facility] Work Phone: 1(307) 317-412506-02-2023 Hospital Discharge instructions Follow Up Care 03/20/2023 11:51:58 With:IDALMIS BORDEN, Nona Turner, URL Address: [address] [place] [address]- When: Unknown [facility] 06-02-2023 Hospital Discharge instructions Patient Education [...] include: ?8 oz (237 mL) of milk, eeiezji-jgkdkttjgmse-hlxts milk, and calcium- fortifiedfruit juice. Calcium-fortified means [...] ?Spinach (cooked), rhubarb, beets, sweet potatoes, and Lao chard. ?Peanuts. ?Potato chips, trinidadian fries, and baked potatoes with skin on. ?Nuts and nut products. ?Chocolate. If you regularly take a diuretic medicine, make sure to eat at least 1 or 2 servings of fruits or vegetables that are high in potassium each day. These include: ?Avocado. ?Banana. ?Nuckolls, prune, carrot, or tomato juice. ?Baked potato. [...] magnesium, fish oil, or vitamin B6. Take zdef-kkf-enykxps and prescription medicines only as told by [...] Casseroles. Pizza. Lasagna. Frozen meals. Potato chips. Kittitian fries. The items listed above may not [...] provider. Document Revised: 06/16/2022 Document Reviewed: 06/16/2022 [employer] Patient Education 2022 [employer] Follow Up Care 12/26/2022 08:46:46 With:IDALMIS BORDEN, Nona Turner, URL Address: [facility] [address] [place] [address]- When: [facility] NoteOPERATIVE NOTE OPERATION DATE: 11/07/2022 PROCEDURE: Mery endometrial ablation with LEEP. PREOPERATIVE DIAGNOSIS: Cervical dysplasia, menorrhagia. POSTOPERATIVE DIAGNOSIS: Cervical dysplasia, menorrhagia. ANESTHESIA: General. SURGEON: Jefferson Gibbs D.O. PSYCHOLOGY ASSOCIATE: None. BLOOD LOSS: 50 mL. URINE OUTPUT: [...] taken to Recovery Room in stable condition.[id number] [facility] Discharge instructions Follow Up Care 09/25/2022 13:54:04 With:IDALMIS BORDEN, Nona Turner, URL Address: [address] [place], [place] [id number]- When: Unknown [facility] 12-01-2022 NoteOPERATIVE NOTE OPERATION DATE: 09/18/2022 [...] usual fashion. I started by passing a 22-Kittitian Olympus cystoscope per urethra and into the [...] and wheeled to PACU in stable condition.[facility] [id number] NoteHNO ID: [id number] Author: Daniel Santiago APRN.WAYNE Service: ? Author Type: Nurse Practitioner Type: Progress Notes Filed: 09/04/2022 7:46 AM Note Text: The patient did not show up for this appointment. The patient did not show up for this appointment.[id number] History of Present illness Narrative* Daniel Santiago APRN.WAYNE - 09/04/2022 7:40 AM EST The patient did not show up for this appointment. The patient did not show up for this appointment. [facility]-2022 NotePROCEDURE: XR ANKLE LT MIN 3 V COMPARISON: None. HISTORY: Sprain of calcaneofibular ligament FINDINGS: BONES:No fracture, acute abnormality, or significant arthropathy. SOFT TISSUES:Extensive lateral soft tissue swelling EFFUSION:None visible. OTHER: Negative. IMPRESSION: Lateral soft tissue swelling. No acute fracture Electronically authenticated by: GLEN GRAFF Date: 2022-07-03 07:09[facility] Future Appointments Appointment Date:03/20/2023 10:15:00 AM Scheduled Provider:Nona VILLA MD Location:[facility] Appointment Type:URO Office Visit [facility] evaluation + Plan note Future Appointments Appointment Date:12/04/2023 09:45:00 AM Scheduled Provider:Nona VILLA MD Location:[facility] Appointment Type:URO Office Visit Diagnostic Tests Pending * Electrolyte Panel 03/20/23 [facility] evalukwzxj note* Diagnosis NO SHOW- Primary documented in this encounter [facility] note* Diagnosis Onset Date Resolution Status Bipolar disorder acute [facility] Work Phone: Hospital course Narrative No data available for this section [facility] progress note No data available for this section [facility] Summary Purpose Family History No Family [...] any alcohol or drug abuse patient.[facility] Reason for Visit (unrecogniz ed section and content) Reason Onset Date Comments No Show 09/04/2022 No show Care Teams (unrecognized sec tion and content) Organization Development Consultant Relationship Specialty Start Date End Date Domingo Das MD [address] [place] [address] Referring Family Medicine 09/01/22 Team Status: Active [...] section and content) DATE CREATED AUTHOR 09/06/2022 [facility] DATE CREATED AUTHOR AUTHOR'S ORGANIZ ATION [facility]/19/[address] [address] DATE CREATED AUTHOR AUTHOR'S ORGANIZ ATION 12/06/2023 [facility] DATE CREATED AUTHOR AUTHOR'S ORGANIZ ATION 12/19/2023 [facility] DATE CREATED AUTHOR AUTHOR'S ORGANIZ ATION 06/07/2024 [facility] FOR RECORDS PERTAINING TO PATIENTS [...] BE BASED ON THE PRIMARY CLINICAL RECORDS. [facility] provides no warranty or guarantee of the accuracy or completeness of information in this document.
[2024-06-29 11:39] LABS: Internal Control Within Normal Limits; SARS-CoV-2 Ag NEGATIVE (NEGATIVE)
== END 2024-06-29 10:55 | disposition home or self-care (01) ==
LOC: LAB 10:54
PROVIDERS: PCP Family Medicine; Visit Provider Family Medicine
DX: J01.90 Acute sinusitis, unspecified (principal)
CPT/HCPCS: 87811

== ENCOUNTER 2024-07-28 08:56 | Outpatient (OUT) | payer OTHER, SELFPAY ==
--- OUTSIDE RECORDS SUMMARY | 2024-07-28 09:12 | XMS_ITS | CCD ---
Author Organization [facility]Sym[facility] Care Team Providers Care Tyre Fitter Name Role Phone Domingo Das MD Unavailable DANIEL SANTIAGO Attending Unavailable DOMINGO DAS Referring Unavailable Domingo Das Primary Care Physician [phone] Primary Care Unavailable [...] Unavailable MD Domingo Das Primary Care Provider [phone] MD Arnulfo Aviles Admit Provider MD Arnulfo Aviles Attending Provider Domingo Das Primary Care Unavailable Arnulfo Aviles Attending Unavailab Arnulfo Forrest Admitting Unavailab Glen Jones V Attending Unavailable Glen Graff V Admitting Unavailable Domingo Das Primary Care Unavailable Domingo Das Primary Care Unavailable Arnulfo Aviles Attending Unavailab le Arnulfo Aviles Admitting Unavailab le Medications Current Medications Medication Drug [...] 13, 2022 12:00am August 16, 2022 11:38am [place] (No Known Home Meds) (1 source) Start: 04-08-2024 [place] (No Kn own Home Meds) Active April [...] BID, # 30 tab(s), Refills(s) 3, Pharmacy: [facility]/pharmacy #[id number], 168, cm, 03/20/23 10:32:00 EDT, [...] 02-16-2023 Episodic Other aftercare (1 source) Other assisted (current) drug therapy; Translations: [OTH PRIMER CHARGER CURRENT DRUG THERAPY] Onset: 02-18-2023 Episodic Other aftercare (1 source) 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 Comment on above: Chol less than 200 m g/dl low riskChol 201-239 mg/dl borderline riskChol 240 mg/dl and greater high risk Result Comment: Chol less than 200 mg/dl low risk Chol 201-239 mg/dl borderline risk Chol 240 mg/dl and greater high risk Performed By: #### L IPID, TSH3 wRFLX, [id number] #### [address] Cholesterol in LDL Calc [Mas s/Vol]Ordered By: Arnulfo Aviles on 04-09-2024 Cholesterol in LDL [Mass/Vol] 90 mg/dL 0-100 [facility] Comment on above: LDL ATP III CLASSIFI CATIONLDL less than 100 mg/dL OptimalLDL 100-129 mg/dL Near or above optimalLDL 130-159 mg/dL Borderline highLDL 160-189 mg/dL HighLDL greater than 189 mg/dL Very high Cholesterol in VLDL Calc [Ma ss/Vol]Ordered By: Arnulfo Aviles on 04-09-2024 Cholesterol in VLDL [Mass/Vol] 16 mg/dL [facility] ECG 12 lead ECGon 04-09-2024 ECG 12 lead ECG [facility] [place] [address] [place] [address] Electrocardiograph Report Signed Patient: Diana Barriga MR#: [id number] 55 : 1990 Acct:[id number] Age/Sex: 33 / F ADM Date: 04/08/24 Loc: Room: 7J6462-8 Type: ADM IN Attending Dr: Arnulfo Aviles [...] previous ECGs available Confirmed by [facility] ([id number]) on 04/09/2024 3:21:42 PM Referred By: Electronically Signed By:NONA CHAWLA MD, FACC Transcribed By: MUS Signed By Lg Chawla MD 04/09/24 1521 Normal [facility] Physician [facility] Lipid Panelon 04-09-2024 LDL Cholesterol,Calculated 90 mg/dL Normal 0-100 [facility] Physician [facility] Comment on above: Result Comment: LDL ATP III CLASSIFICATION LDL less than 100 mg/dL Optimal LDL 100-129 mg/dL Near or above optimal LDL 130-159 mg/dL Borderline high LDL 160-189 mg/dL High LDL greater than 189 mg/dL Very high Performed By: #### L IPID, TSH3 wRFLX, [id number] #### [address] Triglyceride w/Reflex 82 mg/dL Normal 0-149 [facility] Comment on above: Result Comment: TRIG ATP III CLASSIFICATION TRIG less than 150 mg/dL Normal TRIG 150-199 mg/dL Borderline high TRIG 200-500 mg/dL High TRIG greater than 500 mg/dL Very high Standard traceable to the Center for Disease Conrtrol and Prevention (CDC) test method. Performed By: #### L IPID, TSH3 wRFLX, [id number] #### [place] [id number] [facility] VLDL CHOLESTEROL 16 mg/dL Normal [facility] Physician [facility] Comment on above: Performed By: #### L IPID, TSH3 wRFLX, [id number] #### [facility] [address] Serum or plasma high density lipoprotein (HDL) cholesterol measurementOrdered By: Arnulfo Aviles on 04-09-2024 Cholesterol in HDL [Mass/Vol] 44 mg/dL Normal 23-92 [facility] Comment on above: HDL CHOL ATP-III CLA SSIFICATION Cardiovascular RiskHDL > or equal to 60 mg/dL LOWHDL < 40 mg/dL HIGH Result Comment: HDL CHOL ATP-III CLASSIFICATION Cardiovascular Risk HDL > or equal to 60 mg/dL LOW HDL < 40 mg/dL HIGH Performed By: #### L IPID, TSH3 wRFLX, [id number] #### [facility] [address] [place] [address] Serum or plasma total choles terol/high density lipoprotein (HDL) cholesterol mass ratOrdered By: Arnulfo Aviles on 04-09-2024 Cholesterol.total/Chol esterol in HDL [Mass ratio] 3.4 {ratio} Normal <5.0 [facility] Comment on above: Performed By: #### L IPID, TSH3 wRFLX, [id number] #### [facility] [address] [place] [address] Thyroid Stim Hormone w/Rflxo n 04-09-2024 Thyroid Stim Hormone w/Rflx 2.01 u[iU]/mL Normal 0.45-5.33 [facility] Comment on above: Performed By: #### L IPID, TSH3 wRFLX, [id number] #### [facility] [address] [place] [address] Thyrotropin [Units/volume] i n Serum or PlasmaOrdered By: Arnulfo Aviles on 04-09-2024 TSH Qn 2.01 m[IU]/L 0.45-5.33 [facility] Triglyceride [Mass/volume] i n Serum or PlasmaOrdered By: Arnulfo Aviles on 04-09-2024 Triglyceride [Mass/Vol] 82 mg/dL 0-149 [facility] Comment on above: TRIG ATP III CLASSIF ICATIONTRIG less than 150 mg/dL NormalTRIG 150-199 mg/dL Borderline highTRIG 200-500 mg/dL High TRIG greater than 500 mg/dL Very highStandard traceable to the Center for Disease Conrtrol and Prevention (CDC) test method. Vitamin D 25 Hydroxy Totalon 04-09-2024 Vitamin D 25 Hydroxy Total 26.2 ng/mL Low 30-100 [facility] Comment on above: Result Comment: THA MIN D STATUS 25(OH)VITAMIN D RANGE (ng/mL) Deficient <20 Insufficient 20 to <30 Sufficient 30 to 100 Reference: Jennifer Tiwari, Mady MARTI, et al. Evaluation,treatment, and prevention of vitamin D deficiency; an Endocrine Society clinical practice guideline. JCEM. 2010; 96(7):1911-30. PERFORMED BY: [facility] [address] [place] [address] PATHOLOGIST LINE RIDER AB ALCANTARA M.D. Performed By: #### L IPID, TSH3 wRFLX, [id number] #### [facility] [address] Vitamin D+Metabolites [Mass/ volume] in Serum or PlasmaOrdered By: Arnulfo Aviles on 04-09-2024 Vitamin D+Metabolites [Mass/Vol] 26.2 ng/mL 30-100 [facility] Comment on above: VITAMIN D STATUS 25( OH)VITAMIN D RANGE (ng/mL) Deficient <20 Insufficient 20 to <30Sufficient 30 to 100Reference: Jennifer Tiwari, Mady MARTI, et al. Evaluation,treatment, and prevention of vitamin D deficiency; an Endocrine Society clinical practice guideline. JCEM. 2010; 96(7):1911-30. Axel 12-29-2023 L Specimen: [id number] Received: 12/29/23 Status: DAQUAN Moon Num: [id number] Spec Type: Surgical Subm Dr: Glen Graff MD Tissues: A BREAST CORE NO CALCS (LT BREAST 6:00) Procedures: PAS - LGRN, HE/2, Gross/Micro L4, AE1-AE3, CD68 Age/ Patient Sex Location Account Attending Physician Diana Barriga 33/F [place] [id number] Glen Graff MD SPEC NUM: [id number] RECD: 12/29/23 STATUS: DAQUAN NOLENDarvin NUM: [id number] KELBY: 12/29/23 DR: Glen Graff MD ENTERED: 12/29/23 [facility] DR: Miles Celeste Bernie SPEC TYPE: Surgical [...] AM 12/29/2023, time out of ---- Specimen: [id number] Received: 12/29/23 Status: DAQUAN Red Num: [id number] Spec Type: Surgical Subm Dr: Glen Graff MD Tissues: A BREAST CORE NO CALCS (LT BREAST 6:00) Procedures: PAS - ELLIS, HE/2, Gross/Micro L4, AE1-AE3, CD68 ---- Patient: Diana Barriga Boogie [id number] (Continued) ---- Specimen: [id number] Received: 12/29/23 (Continued) Gross Description (Continued) Signed (signature on file) Swathi Dumas MD 12/30/23 1834 ---- Specimen: [id number] Received: 12/29/23 Status: DAQUAN Moon Num: [id number] Spec Type: Surgical Subm Dr: Glen Graff MD Tissues: A BREAST CORE NO CALCS (LT BREAST 6:00) Procedures: PAS - ELLIS, HE/2, Gross/Micro L4, AE1-AE3, CD68 ---- Patient: Diana Barriga [id number] (Continued) ---- Specimen: [id number] Received: 12/29/23 (Continued) Gross Description (Continued) formalin: 6 PM 12/29/2023. Cold Ischemia and Fixation Time meets the requirements specified in the latest version of the ASCO/CAP guidelines: Yes. Cold Ischemic Time: 0.03 Formalin Fixation Time: 9.85 CPT Codes 62539 [id number] ---- ---- Specimen: [id number] Received: 12/29/23 Status: DAQUAN Moon Num: [id number] Spec Type: Surgical Subm Dr: Glen Graff MD Tissues: A BREAST CORE NO CALCS (LT BREAST 6:00) Procedures: FIONA CORRAL, HE/2, Gross/Micro L4, AE1-AE3, CD68 ---- Patient: Diana Barriga [id number] (Continued) ---- Signed (signature on file) Swathi Dumas MD 12/30/23 183 Normal [facility] Patient Letter FTon 2023 Patient Letter [facility] December 04, 2023 DIANA BARRIGA [address] [place] [id number] : 1990 Dear Diana, You missed your [...] any future cancellations. Sincerely, [facility] [address] [facility], [place] [address] [facility] Lab Reportson 06-05-2023 Lab Reports [id number]#1.0 0CD:127 [facility] Reminderson 04-24-2023 Reminders - From: Whitney [...] the pt with the results. duplicate message [facility] Operative Reporton Operative Report [id number]#1.00 CD:127 [facility] RAD - MISCon 04-10-2023 RAD - MISC [id number]#1.0 0CD:127 [facility] Lab Reportson 04-06-2023 Lab Reports [id number]#1.0 0CD:127 [facility] Lab Reports [id number]#1.0 0CD:127 [facility] Lab Reportson 03-23-2023 Lab Reports [id number]#1.0 0CD:127 [facility] Lab Reports [id number]#1.0 0CD:127 [facility] Lab Reports [id number]#1.0 0CD:127 [facility] RAD - CT Reporton 03-23-2023 RAD - CT Report [id number]#1.0 0CD:127 Normal [facility] RAD - CT Report [id number]#1.0 0CD:127 Normal [facility] Ambulatory Visit Summaryon 0 03-20-2023 Ambulatory [...] Where: [facility] [address] [place] [address]- Medications What When Instructions Unchanged olanzapine-samidorphan (Lybalvi [...] ? 8 oz (237 mL) of milk, vtuipzc-wiiihdmbbuau-j airy milk, and calcium-fortifiedfruit juice. Calcium-fortified means [...] handful of b (more content not included)... [facility] Consent for Procedure/Surger yon 03-20-2023 Consent for Procedure/Surgery [id number]#1.0 0CD:127 [facility] Patient Educationon 03-20-20 23 Patient Education [...] ? 8 oz (237 mL) of milk, vlmtogt-xtbabxnfalvy-d airy milk, and calcium-fortifiedfruit juice. Calcium-fortified means [...] Spinach (cooked), rhubarb, beets, sweet potatoes, and Greek chard. ? Peanuts. ? Potato chips, vietnamese fries, and baked potatoes with skin on. ? Nuts and nut products. ? Chocolate. ? If you regularly take a diuretic medicine, make sure to eat at least 1 or 2 servings of fruits or vegetables that are high in potassium each day. These include: ? Avocado. ? Banana. ? [place], prune, carrot, or tomato juice. ? Baked [...] fish oil, or vitamin B6. ? Take frls-nuv-rxxfhzg and prescription medicines only as told by your health care provider. These include supplements. What foods should I limit? Limit your in (more content not included)... Normal [facility] Urology Office/Clinic Noteon 03-20-2023 Urology Office/Clinic [...] Lt kidney pain. Did got to the [place] [facility]. DX'd & treated for UTI. (NEG [...] L. Ox slightly elevated. Pt presented to [facility] ER on 03/06/23 due to L [...] mg qd. SEs discussed. Rx sent to [facility]. -Electrolyte panel 4 weeks to the day [...] With When Contact Information Nona VILLA MD, [facility] [address] [place] [address]- Additional Instructions: schedule R ESWL Patient Education [...] kidney s (more content not included)... Normal [facility] Comment on above: Result Comment: Elec tronically Signed By: Nona VILLA MD\.br\Date and Time Signed: 03/20/23 11:30 EDT\.br\Electronically Co-Signed By: Whitney Collier\.br\Date and Time Co-Signed: 03/20/23 11:28 EDT CBC AUTO DIFFon 02-16-2023 BASO # 0.1 103/ul Normal 0.0-0.1 [facility] Comment on above: Performed By: #### U KJ 24 #### [facility] [address] [place] [address] [address] Ramses Dumas Basophils/100 WBC (Bld) 0.5 % Normal 0.2-2.0 [facility] Comment on above: Performed By: #### U KJ 24 #### [facility] [address] [place] [address] [address] Ramses Dumas EO # 0.0 103/ul Normal 0.0-0.7 [facility] Comment on above: Performed By: #### U KJ 24 #### [facility] [address] [place] [address] [address] Ramses Dumas Eosinophils/100 WBC (Bld) 0.4 % Critically low 0.9-7.0 [facility] Comment on above: Performed By: #### U KJ 24 #### [facility] [address] [place] [address] Dr. Ramses Dumas Erythrocyte distribution width (RBC) [Ratio] 13.7 % Normal 11.0-15.0 [facility] Comment on above: Performed By: #### U KJ 24 #### [facility] [address] [place] [address] Dr. Ramses Dumas Hematocrit (Bld) [Volume fraction] 45.1 % Normal 36.0-48.0 [facility] Comment on above: Performed By: #### U KJ 24 #### [facility] [address] [place] [address] Dr. Ramses Dumas Hemoglobin (Bld) [Mass/Vol] 14.3 g/dL Normal 12.0-16.0 [facility] Comment on above: Performed By: #### U KJ 24 #### [facility] [address] [place] [address] Dr. Ramses Dumas IG # 0.02 10e3/ul Normal 0.00-0.03 [facility] Comment on above: Performed By: #### U KJ 24 #### [facility] [address] [place] [address] Dr. Ramses Dumas IG % 0.2 % Normal 0.0-0.5 [facility] Comment on above: Performed By: #### U KJ 24 #### [facility] [address] [place] [address] Dr. Ramses Dumas LYMPH # 2.5 103/ul Normal 1.2-3.8 [facility] Comment on above: Performed By: #### U KJ 24 #### [facility] [address] [place] [address] Dr. Ramses Dumas Lymphocytes/100 WBC (Bld) 26.4 % Normal 20.5-60.0 [facility] Comment on above: Performed By: #### U KJ 24 #### [facility] [address] [place] [address] Dr. Ramses Dumas MANUAL DIFF REQ NO Normal [facility] Comment on above: Performed By: #### U KJ 24 #### [facility] [address] [place] [address] Dr. Ramses Dumas MCH (RBC) [Entitic mass] 25.6 pg Critically low 26.7-34.0 [facility] Comment on above: Performed By: #### U KJ 24 #### [facility] [address] [place] [address] Dr. Ramses Dumas MCHC (RBC) [Mass/Vol] 31.7 g/dL Normal 29.9-35.2 [facility] Comment on above: Performed By: #### U KJ 24 #### [facility] [address] [place] [address] Dr. Ramses Dumas MCV (RBC) [Entitic vol] 80.7 fL Critically low 81.0-99.0 [facility] Comment on above: Performed By: #### U KJ 24 #### [facility] [address] [place] [address] Dr. Ramses Dumas MONO # 0.7 103/ul Normal 0.3-0.8 [facility] Comment on above: Performed By: #### U KJ 24 #### [facility] [address] [place] [address] Dr. Ramses Dumas Monocytes/100 WBC (Bld) 7.6 % Normal 1.7-12.0 [facility] Comment on above: Performed By: #### U KJ 24 #### [facility] [address] [place] [address] Dr. Ramses Dumas NEUT # 6.1 103/ul Normal 1.4-6.5 [facility] Comment on above: Performed By: #### U KJ 24 #### [facility] [address] [place] [address] Dr. Ramses Dumas Neutrophils/100 WBC (Bld) 64.9 % Normal 43.0-75.0 [facility] Comment on above: Performed By: #### U KJ 24 #### [facility] [address] [place] [address] Dr. Ramses Dumas Platelet mean volume (Bld) [Entitic vol] 11.0 fL Normal 9.5-13.5 [facility] Comment on above: Performed By: #### U KJ 24 #### [facility] [address] [place] [address] [address] Ramses Dumas PLT 270 103/ul Normal 150-450 [facility] Comment on above: Performed By: #### U KJ 24 #### [facility] [address] [place] [address] [address] Ramses Dumas RBC 5.59 106/ul Critically high 4.20-5.40 [facility] Comment on above: Performed By: #### U KJ 24 #### [facility] [address] [place] [address] [address] Ramses Dumas WBC 9.4 103/ul Normal 4.0-11.0 [facility] Comment on above: Performed By: #### U KJ 24 #### [facility] [address] [place] [address] ABD/PELV W CONon [...] by: FARTUN NOVOA Date: 2023-02-16 18:21 Normal [facility] ER URINE PROFILEon 3 Bilirubin Ql (U) SMALL Abnormal NEGATIVE [facility] Comment on above: Performed By: #### C MP #### [facility] [address] [place] [address] Dr. Ramses Dumas Clarity (U) CLEAR Normal CLEAR [facility] Comment on above: Performed By: #### C MP #### [facility] [address] [place] [address] Dr. Ramses Dumas Color (U) YELLOW Normal YELLOW [facility] Comment on above: Performed By: #### C MP #### [facility] [address] [place] [address] Dr. Ramses DELEON A micrscopic examination will be performed if indicated. Normal [facility] Comment on above: Performed By: #### C MP #### [facility] [address] [place] [address] Dr. Ramses Dumas Glucose Ql (U) Negative Normal NEGATIVE [facility] Comment on above: Performed By: #### C MP #### [facility] [address] [place] [address] Dr. Ramses Dumas Hemoglobin Ql (U) Negative Normal NEGATIVE [facility] Comment on above: Performed By: #### C MP #### [facility] [address] [place] [address] Dr. Ramses Dumas Ketones Ql (U) 40 mg/dl Abnormal NEGATIVE [facility] Comment on above: Performed By: #### C MP #### [facility] [address] [place] [address] Dr. Ramses Dumas LEUKOCYTES SMALL Abnormal NEGATIVE [facility] Comment on above: Performed By: #### C MP #### [facility] [address] [place] [address] Dr. Ramses Dumas Nitrite Ql (U) Negative Normal NEGATIVE [facility] Comment on above: Performed By: #### C MP #### [facility] [address] [place] [address] Dr. Ramses Dumas pH (U) 7.0 [pH] Normal 5-9 [facility] Comment on above: Performed By: #### C MP #### [facility] [address] [place] [address] Dr. Ramses Dumas Protein (U) [Mass/Vol] 30 mg/dL Abnormal NEGAT CHRIS/ TRACE [facility] Comment on above: Performed By: #### C MP #### [facility] [address] [place] [address] Dr. Ramses Dumas SPEC GRAVITY 1.020 Normal 1.005-<=1.02 5 [facility] Comment on above: Performed By: #### C MP #### [facility] [address] [place] [address] Dr. Ramses Dumas UR MICRO IND INDICATED Normal [facility] Comment on above: Performed By: #### C MP #### [facility] [address] [place] [address] Dr. Ramses Dumas Urobilinogen Qn (U) 4 {Lucero'U}/dL Abnormal 0.2 - 1.0 [facility] Comment on above: Performed By: #### C MP #### [facility] [address] [place] [address] Dr. Ramses Dumas LIPASEon 02-16-2023 Lipase [Catalytic activity/Vol] 67.0 U/L Critically low 73.0-393.0 [facility] Comment on above: Performed By: #### U RCX #### [facility] [address] [place] [address] Dr. Ramses Dumas LIVER PROFILEon 02-16-2023 Albumin [Mass/Vol] 4.1 g/dL Normal 3.4-5.0 [facility] Comment on above: Performed By: #### U RCX #### [facility] [address] [place] [address] [address] Ramses Dumas Albumin/Globulin [Mass ratio] 1.0 {ratio} Normal [facility] Comment on above: Performed By: #### U RCX #### [facility] [address] [place] [address] [address] Ramses Dumas ALP [Catalytic activity/Vol] 85 U/L Normal 46-116 [facility] Comment on above: Performed By: #### U RCX #### [facility] [address] [address] [address] Ramses Dumas ALT [Catalytic activity/Vol] 61 U/L Critically high 14-59 [facility] Comment on above: Performed By: #### U RCX #### [facility] [address] [place] [address] [address] Ramses Dumas AST [Catalytic activity/Vol] 43 U/L Critically high 15-37 [facility] Comment on above: Performed By: #### U RCX #### [facility] [address] [address] [address] Ramses Dumas BILI, CONJUGATED 0.1 mg/dL Normal 0.0-0.2 [facility] Comment on above: Performed By: #### U RCX #### [facility] [address] [address] [address] Ramses Dumas Bilirubin [Mass/Vol] 0.7 mg/dL Normal 0.2-1.0 [facility] Comment on above: Performed By: #### U RCX #### [facility] [address] [address] [address] Ramses Dumas Globulin (S) [Mass/Vol] 4.2 g/dL Normal [facility] Comment on above: Performed By: #### U RCX #### [facility] [address] [address] [address] Ramses Dumas Protein [Mass/Vol] 8.3 g/dL Critically high 6.4-8.2 [facility] Comment on above: Performed By: #### U RCX #### [facility] [address] [address] [address] Ramses Dumas URon 02-16-2023 , QUAL Negative Normal NEGATIVE [facility] Comment on above: Performed By: #### C MP #### [facility] [address] [address] [address] Ramses Dumas PROF CHEM 8 (BAS METB)on Anion gap [Moles/Vol] 14.2 mmol/L Normal [facility] Comment on above: Performed By: #### U RCX #### [facility] [address] [address] [address] Ramses Dumas Calcium [Mass/Vol] 9.5 mg/dL Normal 8.5-10.1 [facility] Comment on above: Performed By: #### U RCX #### [facility] [address] [address] [address] Ramses Dumas Chloride [Moles/Vol] 102 mmol/L Normal 98-107 [facility] Comment on above: Performed By: #### U RCX #### [facility] [address] [address] [address] Ramses Dumas CO2 [Moles/Vol] 27.5 mmol/L Normal 21.0-32.0 [facility] Comment on above: Performed By: #### U RCX #### [facility] [address] [address] [address] Ramses Dumas Creatinine [Mass/Vol] 0.71 mg/dL Normal 0.55-1.02 [facility] Comment on above: Performed By: #### U RCX #### [facility] [address] [address] [address] Ramses Dumas EGFR-AF AUSTRALIAN >60 Normal >=60 [facility] Comment on above: Performed By: #### U RCX #### [facility] [address] [place] [address] Dr. Ramses Dumas EGFR-NON AF AUSTRALIAN >60 Normal >=60 [facility] Comment on above: Performed By: #### U RCX #### [facility] [address] [address] [address] Ramses Dumas Glucose [Mass/Vol] 90 mg/dL Normal 74-106 [facility] Comment on above: Performed By: #### U RCX #### [facility] [address] [address] [address] Ramses Dumas Potassium [Moles/Vol] 3.7 mmol/L Normal 3.5-5.1 [facility] Comment on above: Performed By: #### U RCX #### [facility] [address] [address] [address] Ramses Dumas Sodium [Moles/Vol] 140 mmol/L Normal 136-145 [facility] Comment on above: Performed By: #### U RCX #### [facility] [address] [place] [address] Dr. Ramses Dumas Urea nitrogen [Mass/Vol] 6.0 mg/dL Critically low 7.0-18.0 [facility] Comment on above: Performed By: #### U RCX #### [facility] [address] [place] [address] Dr. Ramses Dumas Urea nitrogen/Creatinine [Mass ratio] 8.5 mg/mg Normal [facility] Comment on above: Performed By: #### U RCX #### [facility] [address] [place] [address] Dr. Ramses Dumas URINE MICROSCOPIC ONLYon BACTERIA NONE SEEN Normal NONE SEEN [facility] Comment on above: Performed By: #### U KJ 24 #### [facility] [address] [place] [address] Dr. Ramses Dumas Bacteria identified Cx Nom (U) NOT INDICATED Normal [facility] Comment on above: Performed By: #### U KJ 24 #### [facility] [address] [place] [address] Dr. Ramses Dumas CAST NONE SEEN Normal NONE SEEN [facility] Comment on above: Performed By: #### U KJ 24 #### [facility] [address] [place] [address] Dr. Ramses Dumas Crystals LM Nom (Urine sed) NONE SEEN Normal NONE SEEN [facility] Comment on above: Performed By: #### U KJ 24 #### [facility] [address] [place] [address] Dr. Ramses Dumas Epithelial cells LM Ql (Urine sed) FEW Abnormal NONE SEEN /RARE [facility] Comment on above: Performed By: #### U KJ 24 #### [facility] [address] [place] [address] Dr. Ramses Dumas MUCOUS SMALL Abnormal NONE SEEN [facility] Comment on above: Performed By: #### U KJ 24 #### [facility] [address] [place] [address] Dr. Ramses Dumas RBC NONE SEEN Abnormal 0-2 [facility] Comment on above: Performed By: #### U KJ 24 #### [facility] [address] [place] [address] Dr. Ramses Dumas WBC 0-2 Abnormal NONE SEEN [facility] Comment on above: Performed By: #### U KJ 24 #### [facility] [address] [place] [address] Dr. Ramses Dumas PAP ACOG PANEL 2: 30 to 65on 02-10-2023 . . Normal [facility] Comment on above: Result Comment: Perf ormed at: WB Performed By: #### U RCX #### [facility] [address] [place] [address] Dr. Ramses Dumas Age Gdln ACOG Testing 30-65 Normal [facility] Comment on above: Performed By: #### U RCX #### [facility] [address] [place] [address] Dr. Ramses Dumas DIAGNOSIS: Comment Normal [facility] Comment on above: Result Comment: NEGA TIVE FOR INTRAEPITHELIAL LESION OR MALIGNANCY. REACTIVE CELLULAR CHANGES AND/OR REPAIR ARE PRESENT. Performed at: WB Performed By: #### U RCX #### [facility] [address] [place] [address] Dr. Ramses Dumas Electronically signed by: Comment Normal [facility] Comment on above: Result Comment: Chelsey Boston MD, Pathologist Performed at: WB Performed By: #### U RCX #### [facility] [address] [address] [address] Ramses Dumas HPV Aptima Negative Normal Negative [facility] Comment on above: Result Comment: This nucleic acid amplification test detects fourteen high-risk HPV types (16,18,31,33,35,39,45,51,52,56,58,59,66,68) without differentiation. Performed at: =G Performed By: #### U RCX #### [facility] [address] [address] [address] Ramses Dumas HPV Genotype Reflex Comment Normal [facility] Comment on above: Result Comment: Crit erli not met, HPV Genotype not performed. Performed at: WB Performed By: #### U RCX #### [facility] [address] [address] [address] Ramses Dumas Methodology: Comment Normal [facility] Comment on above: Result Comment: This liquid based ThinPrep(R) pap test was screened with the use of an image guided system. Performed at: WB Performed By: #### U RCX #### [facility] [address] [address] [address] Ramses Dumas Note: Comment Normal [facility] Comment on above: Result Comment: The [...] WB Performed By: #### U RCX #### [facility] [address] [address] [address] Ramses Dumas Performed by: Comment Normal [facility] Comment on above: Result Comment: Cuca Briceno, Extrusion Former (ASCP) Performed at: WB Performed By: #### U RCX #### [facility] [address] [address] [address] Ramses Dumas Specimen adequacy: Comment Normal [facility] Comment on above: Result Comment: Sati sfactory for evaluation. Endocervical and/or squamous metaplastic cells (endocervical component) are present. Performed at: WB Performed By: #### U RCX #### [facility] [address] [place] [address] Dr. Ramses Dumas Lab Reportson 12-29-2022 Lab Reports [id number] 0CD:127 Normal [facility] RAD - MISCon 12-21-2022 RAD - MISC [id number] 0CD:127 Normal [facility] OXALATE 24HR URINEon 023 Oxalates, Urine 44 mg/L Normal Undefined [facility] Comment on above: Performed By: #### U KJ 24 #### [facility] [address] [place] [address] Dr. Ramses Dumas Oxalates, Urine 24hr 44 mg/24 hr Critically high 4-31 [facility] Comment on above: Performed By: #### U KJ 24 #### [facility] [address] [place] [address] Dr. Ramses Dumas CITRATE URINE 24HRon 023 Citric Acid, U, 24hr 658 mg/24 hr Normal 320-1240 [facility] Comment on above: Result Comment: This test was developed and its performance characteristics determined by [facility]. It has not been cleared or approved by the Food and Drug Administration. Performed By: #### C ITRATU #### [facility] [address] [place] [address] Dr. Ramses Dumas Citric Acid, Urine 658 mg/L Normal Undefined [facility] Comment on above: Performed By: #### C ITRATU #### [facility] [address] [place] [address] Dr. Ramses Dumas MAGNESIUM 24HR URINEon 12-17 Magnesium 24hr Urine 119.0 mg/24 hr Normal 12.0-293.0 [facility] Comment on above: Performed By: #### U RCX #### [facility] [address] [place] [address] Dr. Ramses Dumas Magnesium UR 11.9 mg/dL Normal Not Estab. [facility] Comment on above: Performed By: #### U RCX #### [facility] [address] [place] [address] Dr. Ramses Dumas PHOSPHORUS 24HR URINEon Phosphorus, Urine 81.4 mg/dL Normal Not Estab. [facility] Comment on above: Performed By: #### B LDCX2 #### [facility] [address] [place] [address] Dr. Ramses Dumas Phosphorus, Urine 24hr 814 mg/24 hr Normal 261-1078 [facility] Comment on above: Performed By: #### B LDCX2 #### [facility] [address] [place] [address] Dr. Ramses Dumas PTH INTACTon 12-17-2022 PTH, Intact 46 pg/mL Normal 15-65 [facility] Comment on above: Performed By: #### U RCX #### [facility] [address] [place] [address] Dr. Ramses Dumas URIC ACID 24 HR URINEon Uric Acid, Urine 69.9 mg/dL Normal Not Estab. The [facility] Comment on above: Performed By: #### U KJ 24 #### [facility] [address] [place] [address] Dr. Ramses Dumas Uric Acid, Urine 24hr 699.0 mg/24 hr Normal 173.7-902. 1 [facility] Comment on above: Performed By: #### U KJ 24 #### [facility] [address] [place] [address] Dr. Ramses Dumas BUNon 12-16-2022 Urea nitrogen [Mass/Vol] 7.0 mg/dL Normal 7.0-18.0 [facility] Comment on above: Performed By: #### C BC #### [facility] [address] [place] [address] Dr. Ramses Dumas CALCIUMon 12-16-2022 Calcium [Mass/Vol] 8.8 mg/dL Normal 8.5-10.1 [facility] Comment on above: Performed By: #### C BC #### [facility] [address] [place] [address] Dr. Ramses Dumas CALCIUM 24 HR URINEon 2022 CALC, 24 HR UR 295.0 mg/24 hr Normal 100.0-300.0 [facility] Comment on above: Performed By: #### B LDCX2 #### [facility] [address] [place] [address] Dr. Ramses Dumas UR CALCIUM 29.5 mg/dL Critically high 5.1-21.0 [facility] Comment on above: Performed By: #### B LDCX2 #### [facility] [address] [place] [address] Dr. Ramses Dumas CHLORIDEon 12-16-2022 Chloride [Moles/Vol] 105 mmol/L Normal 98-107 [facility] Comment on above: Performed By: #### C BC #### [facility] [address] [place] [address] Dr. Ramses Dumas CO2on 12-16-2022 CO2 [Moles/Vol] 26.4 mmol/L Normal 21.0-32.0 [facility] Comment on above: Performed By: #### C MP #### [facility] [address] [place] [address] Dr. Ramses Dumas CREA 24 HR URINEon 3 CREA, 24 HR UR 2337.30 mg/24 hr Critically high 800.00 -1,800 .00 [facility] Comment on above: Performed By: #### C VDTBH #### [facility] [address] [place] [address] Dr. Ramses Dumas URINE CREAT 233.73 mg/dL Normal 20.00-300.00 [facility] Comment on above: Performed By: #### C VDTBH #### [facility] [address] [place] [address] Dr. Ramses Dumas CREATININEon 12-16-2022 Creatinine [Mass/Vol] 0.70 mg/dL Normal 0.55-1.02 [facility] Comment on above: Performed By: #### C MP #### [facility] [address] [address] [address] Ramses Dumas EGFR-AF AUSTRALIAN >60 Normal >=60 [facility] Comment on above: Performed By: #### C MP #### [facility] [address] [address] [address] Ramses Dumas EGFR-NON AF AUSTRALIAN >60 Normal >=60 [facility] Comment on above: Performed By: #### C MP #### [facility] [address] [place] [address] Dr. Ramses Dumas NAon 12-16-2022 Sodium [Moles/Vol] 139 mmol/L Normal 136-145 [facility] Comment on above: Performed By: #### C MP #### [facility] [address] [place] [address] Dr. Ramses Dumas POTASSIUMon 12-16-2022 Potassium [Moles/Vol] 4.0 mmol/L Normal 3.5-5.1 [facility] Comment on above: Performed By: #### C MP #### [facility] [address] [place] [address] Dr. Ramses Dumas SODIUM 24 HR URINEon 023 NA, 24 HR UR 193 mmol/24 hr Normal 40-220 [facility] Comment on above: Performed By: #### C VDTBH #### [facility] [address] [place] [address] Dr. Ramses Dumas Sodium (U) [Moles/Vol] 193 mmol/L Critically high 30-90 [facility] Comment on above: Performed By: #### C VDTBH #### [facility] [address] [place] [address] Dr. Ramses Dumas UR TOT VOL 1000 ml/24 HR Normal [facility] Comment on above: Performed By: #### C VDTBH #### [facility] [address] [place] [address] Dr. Ramses Dumas Performed By: #### B LDCX2 #### [facility] [address] [place] [address] Dr. Ramses Dumas URIC ACID SERUMon 12-16-2022 Urate [Mass/Vol] 5.6 mg/dL Normal 2.6-6.0 [facility] Comment on above: Performed By: #### C MP #### [facility] [address] [place] [address] Dr. Ramses Dumas XR KUB 1 VIEWon [...] JENNIFER GATES Date: 2022-12-15 08:26 Normal [facility] CBC AUTO DIFFon 11-07-2022 BASO # 0.0 103/ul Normal 0.0-0.1 [facility] Comment on above: Performed By: #### U RCX #### [facility] [address] [place] [address] Dr. Ramses Dumas Basophils/100 WBC (Bld) 0.7 % Normal 0.2-2.0 [facility] Comment on above: Performed By: #### U RCX #### [facility] [address] [place] [address] Dr. Ramses Dumas EO # 0.1 103/ul Normal 0.0-0.7 [facility] Comment on above: Performed By: #### U RCX #### [facility] [address] [place] [address] Dr. Ramses Dumas Eosinophils/100 WBC (Bld) 1.9 % Normal 0.9-7.0 [facility] Comment on above: Performed By: #### U RCX #### [facility] [address] [place] [address] Dr. Ramses Dmuas Erythrocyte distribution width (RBC) [Ratio] 13.6 % Normal 11.0-15.0 [facility] Comment on above: Performed By: #### U RCX #### [facility] [address] [place] [address] Dr. Ramses Dumas Hematocrit (Bld) [Volume fraction] 37.3 % Normal 36.0-48.0 [facility] Comment on above: Performed By: #### U RCX #### [facility] [address] [place] [address] Dr. Ramses Dumas Hemoglobin (Bld) [Mass/Vol] 12.2 g/dL Normal 12.0-16.0 [facility] Comment on above: Performed By: #### U RCX #### [facility] [address] [place] [address] Dr. Ramses Dumas IG # 0.02 10e3/ul Normal 0.00-0.03 [facility] Comment on above: Performed By: #### U RCX #### [facility] [address] [place] [address] Dr. Ramses Dumas IG % 0.3 % Normal 0.0-0.5 [facility] Comment on above: Performed By: #### U RCX #### [facility] [address] [place] [address] Dr. Ramses Dumas LYMPH # 2.3 103/ul Normal 1.2-3.8 [facility] Comment on above: Performed By: #### U RCX #### [facility] [address] [place] [address] Dr. Ramses Dumas Lymphocytes/100 WBC (Bld) 39.6 % Normal 20.5-60.0 [facility] Comment on above: Performed By: #### U RCX #### [facility] [address] [place] [address] Dr. Ramses Dumas MANUAL DIFF REQ NO Normal [facility] Comment on above: Performed By: #### U RCX #### [facility] [address] [place] [address] Dr. Ramses Dumas MCH (RBC) [Entitic mass] 26.4 pg Critically low 26.7-34.0 [facility] Comment on above: Performed By: #### U RCX #### [facility] [address] [place] [address] Dr. Ramses Dumas MCHC (RBC) [Mass/Vol] 32.7 g/dL Normal 29.9-35.2 [facility] Comment on above: Performed By: #### U RCX #### [facility] [address] [place] [address] Dr. Ramses Dumas MCV (RBC) [Entitic vol] 80.7 fL Critically low 81.0-99.0 [facility] Comment on above: Performed By: #### U RCX #### [facility] [address] [place] [address] Dr. Ramses Dumas MONO # 0.5 103/ul Normal 0.3-0.8 [facility] Comment on above: Performed By: #### U RCX #### [facility] [address] [place] [address] Dr. Ramses Dumas Monocytes/100 WBC (Bld) 8.0 % Normal 1.7-12.0 [facility] Comment on above: Performed By: #### U RCX #### [facility] [address] [place] [address] Dr. Ramses Dumas NEUT # 2.9 103/ul Normal 1.4-6.5 [facility] Comment on above: Performed By: #### U RCX #### [facility] [address] [place] [address] Dr. Ramses Dumas Neutrophils/100 WBC (Bld) 49.5 % Normal 43.0-75.0 [facility] Comment on above: Performed By: #### U RCX #### [facility] [address] [place] [address] Dr. Ramses Dumas Platelet mean volume (Bld) [Entitic vol] 9.0 fL Critically low 9.5-13.5 [facility] Comment on above: Performed By: #### U RCX #### [facility] [address] [place] [address] Dr. Ramses Dumas PLT 337 103/ul Normal 150-450 [facility] Comment on above: Performed By: #### U RCX #### [facility] [address] [place] [address] Dr. Ramses Dumas RBC 4.62 106/ul Normal 4.20-5.40 [facility] Comment on above: Performed By: #### U RCX #### [facility] [address] [place] [address] Dr. Ramses Dumas WBC 5.9 103/ul Normal 4.0-11.0 [facility] Comment on above: Performed By: #### U RCX #### [facility] [address] [place] [address] Dr. Ramses Dumas POINT OF CARE GLUCOSEon 10-20 Glucose [Mass/Vol] 115 mg/dL Critically high 74-106 T [facility] Comment on above: Performed By: #### C VDTBH #### [facility] [address] [place] [address] Dr. Ramses Dumas PREG QUANT HCGon 11-07-2022 HCG QUANT <1 Normal [facility] Comment on above: Performed By: #### C VDTBH #### [facility] [address] [place] [address] Dr. Ramses Dumas HCG RANGE SEE BELOW Normal [facility] Comment on above: Result Comment: 5-50 0.2-1 WEEK 50-500 1-2 WEEKS 100-5,000 2-3 WEEKS 500-10,000 3-4 WEEKS 1,000-50,000 4-5 WEEKS 10,000-100,000 5-6 WEEKS 15,000-200,000 6-8 WEEKS 10,000-100,000 2-3 MONTHS Performed By: #### C VDTBH #### [facility] [address] [place] [address] Dr. Ramses Dumas US PELVIS AND TRANSVAGon [...] cm right ovarian simple cyst Normal [facility] CBC AUTO DIFFon 11-03-2022 BASO # 0.1 103/ul Normal 0.0-0.1 [facility] Comment on above: Performed By: #### U RCX #### [facility] [address] [place] [address] Dr. Ramses Dumas Basophils/100 WBC (Bld) 0.8 % Normal 0.2-2.0 [facility] Comment on above: Performed By: #### U RCX #### [facility] [address] [place] [address] Dr. Ramses Dumas EO # 0.1 103/ul Normal 0.0-0.7 [facility] Comment on above: Performed By: #### U RCX #### [facility] [address] [place] [address] Dr. Ramses Dumas Eosinophils/100 WBC (Bld) 1.4 % Normal 0.9-7.0 [facility] Comment on above: Performed By: #### U RCX #### [facility] [address] [place] [address] Dr. Ramses Dumas Erythrocyte distribution width (RBC) [Ratio] 13.4 % Normal 11.0-15.0 [facility] Comment on above: Performed By: #### U RCX #### [facility] [address] [place] [address] Dr. Ramses Dumas Hematocrit (Bld) [Volume fraction] 38.8 % Normal 36.0-48.0 [facility] Comment on above: Performed By: #### U RCX #### [facility] [address] [address] [address] Ramses Dumas Hemoglobin (Bld) [Mass/Vol] 12.7 g/dL Normal 12.0-16.0 [facility] Comment on above: Performed By: #### U RCX #### [facility] [address] [address] [address] Ramses Dumas IG # 0.01 10e3/ul Normal 0.00-0.03 [facility] Comment on above: Performed By: #### U RCX #### [facility] [address] [place] [address] Dr. Ramses Dumas IG % 0.1 % Normal 0.0-0.5 [facility] Comment on above: Performed By: #### U RCX #### [facility] [address] [address] [address] Ramses Dumas LYMPH # 1.9 103/ul Normal 1.2-3.8 [facility] Comment on above: Performed By: #### U RCX #### [facility] [address] [place] [address] Dr. Ramses Dumas Lymphocytes/100 WBC (Bld) 26.4 % Normal 20.5-60.0 [facility] Comment on above: Performed By: #### U RCX #### [facility] [address] [address] [address] Ramses Dumas MANUAL DIFF REQ NO Normal [facility] Comment on above: Performed By: #### U RCX #### [facility] [address] [address] [address] Ramses Dumas MCH (RBC) [Entitic mass] 26.3 pg Critically low 26.7-34.0 [facility] Comment on above: Performed By: #### U RCX #### [facility] [address] [place] [address] Dr. Ramses Dumas MCHC (RBC) [Mass/Vol] 32.7 g/dL Normal 29.9-35.2 [facility] Comment on above: Performed By: #### U RCX #### [facility] [address] [place] [address] Dr. Ramses Dumas MCV (RBC) [Entitic vol] 80.5 fL Critically low 81.0-99.0 [facility] Comment on above: Performed By: #### U RCX #### [facility] [address] [place] [address] Dr. Ramses Dumas MONO # 0.6 103/ul Normal 0.3-0.8 [facility] Comment on above: Performed By: #### U RCX #### [facility] [address] [place] [address] Dr. Ramses Dumas Monocytes/100 WBC (Bld) 8.2 % Normal 1.7-12.0 [facility] Comment on above: Performed By: #### U RCX #### [facility] [address] [place] [address] Dr. Ramses Dumas NEUT # 4.5 103/ul Normal 1.4-6.5 [facility] Comment on above: Performed By: #### U RCX #### [facility] [address] [place] [address] Dr. Ramses Dumas Neutrophils/100 WBC (Bld) 63.1 % Normal 43.0-75.0 [facility] Comment on above: Performed By: #### U RCX #### [facility] [address] [place] [address] Dr. Ramses Dumas Platelet mean volume (Bld) [Entitic vol] 8.9 fL Critically low 9.5-13.5 [facility] Comment on above: Performed By: #### U RCX #### [facility] [address] [place] [address] Dr. Ramses Dumas PLT 340 103/ul Normal 150-450 [facility] Comment on above: Performed By: #### U RCX #### [facility] [address] [place] [address] Dr. Ramses Dumas RBC 4.82 106/ul Normal 4.20-5.40 [facility] Comment on above: Performed By: #### U RCX #### [facility] [address] [place] [address] Dr. Ramses Dumas WBC 7.1 103/ul Normal 4.0-11.0 [facility] Comment on above: Performed By: #### U RCX #### [facility] [address] [place] [address] Dr. Ramses Dumas [facility] SARS-CoV-2 (COVID-19) RNA FRANCESCA+probe Ql (Unsp spec) Not detected Normal NOT DETECTED [facility] Comment on above: Result Comment: This test is not yet approved or cleared by the [place] FDA. When there are no FDA-approved or cleared tests available, and other criteria are met, FDA can make tests available under an emergency access mechanism called an Emergency Use Authorization (EUA). The EUA for this test is supported by the [place] of Health and Human Service's (HHS's) declaration [...] SARS-CoV-2. Performed By: #### U RCX #### [facility] [address] [place] [address] Dr. Ramses Dumas FREE T4on 11-03-2022 Free T4 [Mass/Vol] 0.99 ng/dL Normal 0.76-1.46 [facility] Comment on above: Performed By: #### B LDCX2 #### [facility] [address] [place] [address] Dr. Ramses Dumas GLYCOHEMOGLOBIN A1Con 2022 ADA RECOMMENDATION SEE BELOW Normal [facility] Comment on above: Result Comment: ADA RECOMMENDED LIMIT 4.0 - 6.0 ADA THERAPEUTIC TARGET < 7.0 ACTION SUGGESTED > 7.0 Performed By: #### C VDTBH #### [facility] [address] [place] [address] Dr. Ramses Dumas Glucose [Mass/Vol] 117 mg/dL Normal [facility] Comment on above: Performed By: #### C VDTBH #### [facility] [address] [place] [address] Dr. Ramses Dumas HbA1c (Bld) [Mass fraction] 5.7 % Normal 4.5-6.2 [facility] Comment on above: Performed By: #### C VDTBH #### [facility] [address] [place] [address] Dr. Ramses Dumas PROTIMEon 11-03-2022 INR Coag (PPP) [Relative time] 0.97 {INR} Normal [facility] Comment on above: Performed By: #### U KJ 24 #### [facility] [address] [place] [address] Dr. Ramses Dumas INR GUIDELINES SEE BELOW Normal [facility] Comment on above: Result Comment: TOÑA RED INR: 2.0 - 3.0 CONDITIONS NOT LISTED BELOW 2.5 - 3.5 FOR PROSTHETIC HEART VALVE REPLACEMENT 2.5 - 3.5 RECURRENT THROMBOSIS Performed By: #### U KJ 24 #### [facility] [address] [place] [address] Dr. Ramses Dumas PT Coag (PPP) [Time] 10.3 s Normal 9.0-11.6 [facility] Comment on above: Performed By: #### U KJ 24 #### [facility] [address] [place] [address] Dr. Ramses Dumas PTTon 11-03-2022 aPTT Coag (Bld) [Time] 27.7 s Normal 22.3-36.2 [facility] Comment on above: Performed By: #### U KJ 24 #### [facility] [address] [place] [address] Dr. Ramses Dumas TSHon 11-03-2022 TSH 0.667 uIU/mL Normal 0.358-3.740 [facility] Comment on above: Performed By: #### C VDTBH #### [facility] [address] [address] [address] Ramses Dumas PREG HCG QUALon 09-18-2022 , QUAL Negative Normal NEGATIVE [facility] Comment on above: Performed By: #### U KJ 24 #### [facility] [address] [address] [address] Ramses Dumas Covid-19 PCR ([facility])on 08-20 SARS-CoV-2 (COVID-19) RNA FRANCESCA+probe Ql (Unsp spec) Not detected Normal NOT DETECTED [facility] Comment on above: Result Comment: This test is not yet approved or cleared by the [place] FDA. When there are no FDA-approved or cleared tests available, and other criteria are met, FDA can make tests available under an emergency access mechanism called an Emergency Use Authorization (EUA). The EUA for this test is supported by the [employer] of Health and Human Service's (HHS's) declaration [...] SARS-CoV-2. Performed By: #### C VDTBH #### [facility] [address] [address] [address] Ramses Dumas CBC AUTO DIFFon 09-05-2022 BASO # 0.1 103/ul Normal 0.0-0.1 [facility] Comment on above: Performed By: #### B LDCX2 #### [facility] [address] [address] [address] Ramses Dumas Basophils/100 WBC (Bld) 0.7 % Normal 0.2-2.0 [facility] Comment on above: Performed By: #### B LDCX2 #### [facility] [address] [place] [address] Dr. Ramses Dumas EO # 0.2 103/ul Normal 0.0-0.7 [facility] Comment on above: Performed By: #### B LDCX2 #### [facility] [address] [place] [address] Dr. Ramses Dumas Eosinophils/100 WBC (Bld) 2.2 % Normal 0.9-7.0 [facility] Comment on above: Performed By: #### B LDCX2 #### [facility] [address] [place] [address] Dr. Ramses Dumas Erythrocyte distribution width (RBC) [Ratio] 13.9 % Normal 11.0-15.0 [facility] Comment on above: Performed By: #### B LDCX2 #### [facility] [address] [place] [address] Dr. Ramses Dumas Hematocrit (Bld) [Volume fraction] 38.8 % Normal 36.0-48.0 [facility] Comment on above: Performed By: #### B LDCX2 #### [facility] [address] [place] [address] Dr. Ramses Dumas Hemoglobin (Bld) [Mass/Vol] 12.6 g/dL Normal 12.0-16.0 [facility] Comment on above: Performed By: #### B LDCX2 #### [facility] [address] [place] [address] Dr. Ramses Dumas IG # 0.03 10e3/ul Normal 0.00-0.03 [facility] Comment on above: Performed By: #### B LDCX2 #### [facility] [address] [place] [address] Dr. Ramses Dumas IG % 0.3 % Normal 0.0-0.5 [facility] Comment on above: Performed By: #### B LDCX2 #### [facility] [address] [place] [address] Dr. Ramses Dumas LYMPH # 2.3 103/ul Normal 1.2-3.8 [facility] Comment on above: Performed By: #### B LDCX2 #### [facility] [address] [place] [address] Dr. Ramses Dumas Lymphocytes/100 WBC (Bld) 21.3 % Normal 20.5-60.0 [facility] Comment on above: Performed By: #### B LDCX2 #### [facility] [address] [place] [address] Dr. Ramses Dumas MANUAL DIFF REQ NO Normal [facility] Comment on above: Performed By: #### B LDCX2 #### [facility] [address] [place] [address] Dr. Ramses Dumas MCH (RBC) [Entitic mass] 26.4 pg Critically low 26.7-34.0 [facility] Comment on above: Performed By: #### B LDCX2 #### [facility] [address] [place] [address] Dr. Ramses Dumas MCHC (RBC) [Mass/Vol] 32.5 g/dL Normal 29.9-35.2 [facility] Comment on above: Performed By: #### B LDCX2 #### [facility] [address] [place] [address] Dr. Ramses Dumas MCV (RBC) [Entitic vol] 81.2 fL Normal 81.0-99.0 [facility] Comment on above: Performed By: #### B LDCX2 #### [facility] [address] [place] [address] Dr. Ramses Dumas MONO # 0.8 103/ul Normal 0.3-0.8 [facility] Comment on above: Performed By: #### B LDCX2 #### [facility] [address] [place] [address] Dr. Ramses Dumas Monocytes/100 WBC (Bld) 7.4 % Normal 1.7-12.0 [facility] Comment on above: Performed By: #### B LDCX2 #### [facility] [address] [address] [address] Ramses Dumas NEUT # 7.3 103/ul Critically high 1.4-6.5 [facility] Comment on above: Performed By: #### B LDCX2 #### [facility] [address] [place] [address] Dr. Ramses Dumas Neutrophils/100 WBC (Bld) 68.1 % Normal 43.0-75.0 [facility] Comment on above: Performed By: #### B LDCX2 #### [facility] [address] [place] [address] Dr. Ramses Dumas Platelet mean volume (Bld) [Entitic vol] 8.8 fL Critically low 9.5-13.5 [facility] Comment on above: Performed By: #### B LDCX2 #### [facility] [address] [place] [address] Dr. Ramses Dumas PLT 323 103/ul Normal 150-450 [facility] Comment on above: Performed By: #### B LDCX2 #### [facility] [address] [place] [address] Dr. Ramses Dumas RBC 4.78 106/ul Normal 4.20-5.40 [facility] Comment on above: Performed By: #### B LDCX2 #### [facility] [address] [place] [address] Dr. Ramses Dumas WBC 10.7 103/ul Normal 4.0-11.0 [facility] Comment on above: Performed By: #### B LDCX2 #### [facility] [address] [place] [address] Dr. Ramses Dumas CULTURE URINEon 09-05-2022 CULTURE URINE Culture Observations : LIGHT GROWTH OF MIXED GENITAL DAIANA. NO POTENTIAL PATHOGENS SEEN. Normal [facility] Comment on above: Performed By: #### U RCX #### [facility] [address] [place] [address] Dr. Ramses Dumas ER URINE PROFILEon Bilirubin Ql (U) Negative Normal NEGATIVE [facility] Comment on above: Performed By: #### B LDCX2 #### [facility] [address] [place] [address] Dr. Ramses Dumas Clarity (U) CLOUDY Abnormal CLEAR [facility] Comment on above: Performed By: #### B LDCX2 #### [facility] [address] [place] [address] Dr. Ramses Dumas Color (U) YELLOW Normal YELLOW [facility] Comment on above: Performed By: #### B LDCX2 #### [facility] [address] [place] [address] Dr. Ramses Dumas ERUAHWalter A micrscopic examination will be performed if indicated. Normal [facility] Comment on above: Performed By: #### B LDCX2 #### [facility] [address] [place] [address] Dr. Ramses Dumas Glucose Ql (U) Negative Normal NEGATIVE [facility] Comment on above: Performed By: #### B LDCX2 #### [facility] [address] [place] [address] Dr. Ramses Dumas Hemoglobin Ql (U) LARGE Abnormal NEGATIVE [facility] Comment on above: Performed By: #### B LDCX2 #### [facility] [address] [place] [address] Dr. Ramses Dumas Ketones Ql (U) Negative Normal NEGATIVE [facility] Comment on above: Performed By: #### B LDCX2 #### [facility] [address] [place] [address] Dr. Ramses Dumas LEUKOCYTES SMALL Abnormal NEGATIVE [facility] Comment on above: Performed By: #### B LDCX2 #### [facility] [address] [place] [address] Dr. Ramses Dumas Nitrite Ql (U) Negative Normal NEGATIVE [facility] Comment on above: Performed By: #### B LDCX2 #### [facility] [address] [place] [address] Dr. Ramses Dumas pH (U) 6.0 [pH] Normal 5-9 [facility] Comment on above: Performed By: #### B LDCX2 #### [facility] [address] [place] [address] Dr. Ramses Dumas Protein (U) [Mass/Vol] 100 mg/dL Abnormal NEGAT CHRIS/ TRACE [facility] Comment on above: Performed By: #### B LDCX2 #### [facility] [address] [place] [address] Dr. Ramses Dumas SPEC GRAVITY >=1.030 Abnormal 1.005-<=1.02 5 [facility] Comment on above: Performed By: #### B LDCX2 #### [facility] [address] [address] [address] Ramses Dumas UR MICRO IND INDICATED Normal [facility] Comment on above: Performed By: #### B LDCX2 #### [facility] [address] [place] [address] Dr. Ramses Dumas Urobilinogen Qn (U) 0.2 {Lucero'U}/dL Normal 0.2 - 1. 0 [facility] Comment on above: Performed By: #### B LDCX2 #### [facility] [address] [place] [address] Dr. Ramses Dumas URon 09-05-2022 , QUAL Negative Normal NEGATIVE [facility] Comment on above: Performed By: #### B LDCX2 #### [facility] [address] [place] [address] Dr. Ramses Dumas PROF CHEM 8 (BAS METB)on Anion gap [Moles/Vol] 11.7 mmol/L Normal [facility] Comment on above: Performed By: #### C MP #### [facility] [address] [place] [address] Dr. Ramses Dumas Calcium [Mass/Vol] 9.1 mg/dL Normal 8.5-10.1 [facility] Comment on above: Performed By: #### C MP #### [facility] [address] [place] [address] Dr. Ramses Dumas Chloride [Moles/Vol] 103 mmol/L Normal 98-107 [facility] Comment on above: Performed By: #### C MP #### [facility] [address] [address] [address] Ramses Dumas CO2 [Moles/Vol] 25.9 mmol/L Normal 21.0-32.0 [facility] Comment on above: Performed By: #### C MP #### [facility] [address] [address] [address] Ramses Dumas Creatinine [Mass/Vol] 0.77 mg/dL Normal 0.55-1.02 [facility] Comment on above: Performed By: #### C MP #### [facility] [address] [address] [address] Ramses Dumas EGFR-AF AUSTRALIAN >60 Normal >=60 [facility] Comment on above: Performed By: #### C MP #### [facility] [address] [place] [address] Dr. Ramses Dumas EGFR-NON AF AUSTRALIAN >60 Normal >=60 [facility] Comment on above: Performed By: #### C MP #### [facility] [address] [address] [address] Ramses Dumas Glucose [Mass/Vol] 124 mg/dL Critically high 74-106 [facility] Comment on above: Performed By: #### C MP #### [facility] [address] [address] [address] Ramses Dumas Potassium [Moles/Vol] 3.6 mmol/L Normal 3.5-5.1 [facility] Comment on above: Performed By: #### C MP #### [facility] [address] [address] [address] Ramses Dumas Sodium [Moles/Vol] 137 mmol/L Normal 136-145 [facility] Comment on above: Performed By: #### C MP #### [facility] [address] [place] [address] Dr. Ramses Dumas Urea nitrogen [Mass/Vol] 12.0 mg/dL Normal 7.0-18.0 [facility] Comment on above: Performed By: #### C MP #### [facility] [address] [address] [address] Ramses Dumas Urea nitrogen/Creatinine [Mass ratio] 15.6 mg/mg Normal [facility] Comment on above: Performed By: #### C MP #### [facility] [address] [place] [address] Dr. Ramses Dumas URINE MICROSCOPIC ONLYon AMORPHOUS CRYSTALS RARE Normal [facility] Comment on above: Performed By: #### B LDCX2 #### [facility] [address] [place] [address] Dr. Ramses Dumas BACTERIA TRACE Abnormal NONE SEEN [facility] Comment on above: Performed By: #### B LDCX2 #### [facility] [address] [place] [address] Dr. Ramses Dumas Bacteria identified Cx Nom (U) INDICATED Normal [facility] Comment on above: Performed By: #### B LDCX2 #### [facility] [address] [place] [address] Dr. Ramses Dumas CA OX CRYSTALS RARE Normal [facility] Comment on above: Performed By: #### B LDCX2 #### [facility] [address] [place] [address] Dr. Ramses Dumas CAST NONE SEEN Normal NONE SEEN [facility] Comment on above: Performed By: #### B LDCX2 #### [facility] [address] [place] [address] Dr. Ramses Dumas Crystals LM Nom (Urine sed) SEEN Abnormal NONE SEEN [facility] Comment on above: Performed By: #### B LDCX2 #### [facility] [address] [place] [address] Dr. Ramses Dumas Epithelial cells LM Ql (Urine sed) FEW Abnormal NONE SEEN /RARE [facility] Comment on above: Performed By: #### B LDCX2 #### [facility] [address] [place] [address] Dr. Ramses Dumas MUCOUS TRACE Abnormal NONE SEEN [facility] Comment on above: Performed By: #### B LDCX2 #### [facility] [address] [place] [address] Dr. Ramses Dumas RBC 50-75 Abnormal 0-2 [facility] Comment on above: Performed By: #### B LDCX2 #### [facility] [address] [address] [address] Ramses Dumas WBC 20-50 Abnormal NONE SEEN [facility] Comment on above: Performed By: #### B LDCX2 #### [facility] [address] [address] [address] Ramses Dumas YEAST PRESENT Abnormal NONE SEEN [facility] Comment on above: Performed By: #### B LDCX2 #### [facility] [address] [place] [address] Dr. Ramses Dumas US KIDNEYSon 09-05-2022 US [...] GLEN GRAFF Date: 2022-09-05 11:00 Normal [facility] CT ABD/PELVIS WO CONon 08-29 CT ABD/PELVIS [...] ERICKA IGLESIAS Date: 2022-08-29 01:10 Normal [facility] CULTURE URINEon 08-29-2022 CULTURE URINE Culture Observations : LIGHT GROWTH OF MIXED GENITAL DAIANA. NO POTENTIAL PATHOGENS SEEN. Normal [facility] Comment on above: Performed By: #### U RCX #### [facility] [address] [place] [address] Dr. Ramses Dumas CBC AUTO DIFFon 08-28-2022 BASO # 0.1 103/ul Normal 0.0-0.1 [facility] Comment on above: Performed By: #### U RCX #### [facility] [address] [place] [address] Dr. Ramses Dumas Basophils/100 WBC (Bld) 0.5 % Normal 0.2-2.0 [facility] Comment on above: Performed By: #### U RCX #### [facility] [address] [place] [address] Dr. Ramses Dumas EO # 0.3 103/ul Normal 0.0-0.7 [facility] Comment on above: Performed By: #### U RCX #### [facility] [address] [place] [address] Dr. Ramses Dumas Eosinophils/100 WBC (Bld) 2.3 % Normal 0.9-7.0 [facility] Comment on above: Performed By: #### U RCX #### [facility] [address] [place] [address] Dr. Ramses Dumas Erythrocyte distribution width (RBC) [Ratio] 13.7 % Normal 11.0-15.0 [facility] Comment on above: Performed By: #### U RCX #### [facility] [address] [place] [address] Dr. Ramses Dumas Hematocrit (Bld) [Volume fraction] 36.7 % Normal 36.0-48.0 [facility] Comment on above: Performed By: #### U RCX #### [facility] [address] [place] [address] Dr. Ramses Dumas Hemoglobin (Bld) [Mass/Vol] 12.3 g/dL Normal 12.0-16.0 [facility] Comment on above: Performed By: #### U RCX #### [facility] [address] [place] [address] Dr. Ramses Dumas IG # 0.16 10e3/ul Critically high 0.00-0.03 [facility] Comment on above: Performed By: #### U RCX #### [facility] [address] [place] [address] Dr. Ramses Dumas IG % 1.1 % Critically high 0.0-0.5 [facility] Comment on above: Performed By: #### U RCX #### [facility] [address] [place] [address] Dr. Ramses Dumas LYMPH # 4.6 103/ul Critically high 1.2-3.8 [facility] Comment on above: Performed By: #### U RCX #### [facility] [address] [place] [address] Dr. Ramses Dumas Lymphocytes/100 WBC (Bld) 31.8 % Normal 20.5-60.0 [facility] Comment on above: Performed By: #### U RCX #### [facility] [address] [place] [address] Dr. Ramses Dumas MANUAL DIFF REQ NO Normal [facility] Comment on above: Performed By: #### U RCX #### [facility] [address] [place] [address] Dr. Ramses Dumas MCH (RBC) [Entitic mass] 26.9 pg Normal 26.7-34.0 [facility] Comment on above: Performed By: #### U RCX #### [facility] [address] [place] [address] Dr. Ramses Dumas MCHC (RBC) [Mass/Vol] 33.5 g/dL Normal 29.9-35.2 [facility] Comment on above: Performed By: #### U RCX #### [facility] [address] [place] [address] Dr. Ramses Dumas MCV (RBC) [Entitic vol] 80.3 fL Critically low 81.0-99.0 [facility] Comment on above: Performed By: #### U RCX #### [facility] [address] [place] [address] Dr. Ramses Dumas MONO # 1.0 103/ul Critically high 0.3-0.8 [facility] Comment on above: Performed By: #### U RCX #### [facility] [address] [place] [address] Dr. Ramses Dumas Monocytes/100 WBC (Bld) 7.0 % Normal 1.7-12.0 [facility] Comment on above: Performed By: #### U RCX #### [facility] [address] [place] [address] Dr. Ramses Dumas NEUT # 8.2 103/ul Critically high 1.4-6.5 [facility] Comment on above: Performed By: #### U RCX #### [facility] [address] [place] [address] Dr. Ramses Dumas Neutrophils/100 WBC (Bld) 57.3 % Normal 43.0-75.0 [facility] Comment on above: Performed By: #### U RCX #### [facility] [address] [place] [address] Dr. Ramses Dumas Platelet mean volume (Bld) [Entitic vol] 8.6 fL Critically low 9.5-13.5 [facility] Comment on above: Performed By: #### U RCX #### [facility] [address] [place] [address] Dr. Ramses Dumas PLT 395 103/ul Normal 150-450 [facility] Comment on above: Performed By: #### U RCX #### [facility] [address] [place] [address] Dr. Ramses Dumas RBC 4.57 106/ul Normal 4.20-5.40 [facility] Comment on above: Performed By: #### U RCX #### [facility] [address] [place] [address] Dr. Ramses Dumas WBC 14.3 103/ul Critically high 4.0-11.0 [facility] Comment on above: Performed By: #### U RCX #### [facility] [address] [place] [address] Dr. Ramsse Dumas ER URINE PROFILEon 2 Bilirubin Ql (U) Negative Normal NEGATIVE [facility] Comment on above: Performed By: #### U KJ 24 #### [facility] [address] [place] [address] Dr. Ramses Dumas Clarity (U) CLEAR Normal CLEAR [facility] Comment on above: Performed By: #### U KJ 24 #### [facility] [address] [place] [address] Dr. Ramses Dumas Color (U) LT. YELLOW Normal YELLOW [facility] Comment on above: Performed By: #### U KJ 24 #### [facility] [address] [place] [address] Dr. Ramses Dumas ERUAHD A micrscopic examination will be performed if indicated. Normal [facility] Comment on above: Performed By: #### U KJ 24 #### [facility] [address] [place] [address] Dr. Ramses Dumas Glucose Ql (U) Negative Normal NEGATIVE [facility] Comment on above: Performed By: #### U KJ 24 #### [facility] [address] [place] [address] Dr. Ramses Dumas Hemoglobin Ql (U) LARGE Abnormal NEGATIVE [facility] Comment on above: Performed By: #### U KJ 24 #### [facility] [address] [place] [address] Dr. Ramses Dumas Ketones Ql (U) Negative Normal NEGATIVE [facility] Comment on above: Performed By: #### U KJ 24 #### [facility] [address] [place] [address] Dr. Ramses Dumas LEUKOCYTES MODERATE Abnormal NEGATIVE [facility] Comment on above: Performed By: #### U KJ 24 #### [facility] [address] [place] [address] Dr. Ramses Dumas Nitrite Ql (U) Negative Normal NEGATIVE [facility] Comment on above: Performed By: #### U KJ 24 #### [facility] [address] [place] [address] Dr. Ramses Dumas pH (U) 6.5 [pH] Normal 5-9 [facility] Comment on above: Performed By: #### U KJ 24 #### [facility] [address] [place] [address] Dr. Ramses Dumas Protein (U) [Mass/Vol] 100 mg/dL Abnormal NEGAT CHRIS/ TRACE [facility] Comment on above: Performed By: #### U KJ 24 #### [facility] [address] [place] [address] Dr. Ramses Dumas SPEC GRAVITY 1.020 Normal 1.005-<=1.[address] [place] [address] Comment on above: Performed By: #### U KJ 24 #### [facility] [address] [place] [address] Dr. Ramses Dumas UR MICRO IND INDICATED Normal [facility] Comment on above: Performed By: #### U KJ 24 #### [facility] [address] [place] [address] Dr. Ramses Dumas Urobilinogen Qn (U) 0.2 {Lucero'U}/dL Normal 0.2 - 1. 0 [facility] Comment on above: Performed By: #### U KJ 24 #### [facility] [address] [address] [address] Ramses Dumas PROF 14(COMP METB)on 022 Albumin [Mass/Vol] 3.3 g/dL Critically low 3.4-5.0 [facility] Comment on above: Performed By: #### C MP #### [facility] [address] [address] [address] Ramses Dumas Albumin/Globulin [Mass ratio] 0.8 {ratio} Normal [facility] Comment on above: Performed By: #### C MP #### [facility] [address] [address] [address] Ramses Dumas ALP [Catalytic activity/Vol] 108 U/L Normal 46-116 [facility] Comment on above: Performed By: #### C MP #### [facility] [address] [place] [address] Dr. Ramses Dumas ALT [Catalytic activity/Vol] 103 U/L Critically high 14-59 [facility] Comment on above: Performed By: #### C MP #### [facility] [address] [address] [address] Ramses Dumas Anion gap [Moles/Vol] 6.6 mmol/L Normal [facility] Comment on above: Performed By: #### C MP #### [facility] [address] [place] [address] Dr. Ramses Dumas AST [Catalytic activity/Vol] 21 U/L Normal 15-37 [facility] Comment on above: Performed By: #### C MP #### [facility] [address] [address] [address] Ramses Dumas Bilirubin [Mass/Vol] 0.2 mg/dL Normal 0.2-1.0 [facility] Comment on above: Performed By: #### C MP #### [facility] [address] [address] [address] Ramses Dumas Calcium [Mass/Vol] 9.2 mg/dL Normal 8.5-10.1 [facility] Comment on above: Performed By: #### C MP #### [facility] [address] [address] [address] Ramses Dumas Chloride [Moles/Vol] 102 mmol/L Normal 98-107 [facility] Comment on above: Performed By: #### C MP #### [facility] [address] [address] [address] Ramses Dumas CO2 [Moles/Vol] 28.8 mmol/L Normal 21.0-32.0 [facility] Comment on above: Performed By: #### C MP #### [facility] [address] [address] [address] Ramses Dumas Creatinine [Mass/Vol] 0.92 mg/dL Normal 0.55-1.02 [facility] Comment on above: Performed By: #### C MP #### [facility] [address] [place] [address] Dr. Ramses Dumas EGFR-AF AUSTRALIAN >60 Normal >=60 [facility] Comment on above: Performed By: #### C MP #### [facility] [address] [address] [address] Ramses Dumas EGFR-NON AF AUSTRALIAN >60 Normal >=60 [facility] Comment on above: Performed By: #### C MP #### [facility] [address] [place] [address] Dr. Ramses Dumas Globulin (S) [Mass/Vol] 4.1 g/dL Normal [facility] Comment on above: Performed By: #### C MP #### [facility] [address] [address] [address] Ramses Dumas Glucose [Mass/Vol] 114 mg/dL Critically high 74-106 [facility] Comment on above: Performed By: #### C MP #### [facility] [address] [place] [address] Dr. Ramses Dumas Potassium [Moles/Vol] 3.4 mmol/L Critically low 3.5-5.1 [facility] Comment on above: Performed By: #### C MP #### [facility] [address] [address] [address] Ramses Dumas Protein [Mass/Vol] 7.4 g/dL Normal 6.4-8.2 [facility] Comment on above: Performed By: #### C MP #### [facility] [address] [place] [address] Dr. Ramses Dumas Sodium [Moles/Vol] 134 mmol/L Critically low 136-145 [facility] Comment on above: Performed By: #### C MP #### [facility] [address] [place] [address] Dr. Ramses Dumas Urea nitrogen [Mass/Vol] 11.0 mg/dL Normal 7.0-18.0 [facility] Comment on above: Performed By: #### C MP #### [facility] [address] [place] [address] Dr. Ramses Dumas Urea nitrogen/Creatinine [Mass ratio] 12.0 mg/mg Normal [facility] Comment on above: Performed By: #### C MP #### [facility] [address] [place] [address] Dr. Ramses Dumas URINE MICROSCOPIC ONLYon BACTERIA MODERATE Abnormal NONE SEEN [facility] Comment on above: Performed By: #### U KJ 24 #### [facility] [address] [place] [address] Dr. Ramses Dumas Bacteria identified Cx Nom (U) INDICATED Normal [facility] Comment on above: Performed By: #### U KJ 24 #### [facility] [address] [place] [address] Dr. Ramses Dumas CAST NONE SEEN Normal NONE SEEN [facility] Comment on above: Performed By: #### U KJ 24 #### [facility] [address] [place] [address] Dr. Ramses Dumas Crystals LM Nom (Urine sed) NONE SEEN Normal NONE SEEN [facility] Comment on above: Performed By: #### U KJ 24 #### [facility] [address] [place] [address] Dr. Ramses Dumas Epithelial cells LM Ql (Urine sed) RARE Normal NONE SEEN /RARE [facility] Comment on above: Performed By: #### U KJ 24 #### [facility] [address] [place] [address] Dr. Ramses Dumas MUCOUS NONE SEEN Normal NONE SEEN [facility] Comment on above: Performed By: #### U KJ 24 #### [facility] [address] [place] [address] Dr. Ramses Dumas RBC 20-50 Abnormal 0-2 [facility] Comment on above: Performed By: #### U KJ 24 #### [facility] [address] [place] [address] Dr. Ramses Dumas WBC 5-10 Abnormal NONE SEEN [facility] Comment on above: Performed By: #### U KJ 24 #### [facility] [address] [place] [address] Dr. Ramses Dumas CULTURE BLOODon 08-25-2022 Microscopic [...] F Tetracycline >=16 R F Normal [facility] Comment on above: Performed By: #### B LDCX2 #### [facility] [address] [place] [address] Dr. Ramses Dumas Microscopic examination of blood, [...] F Tetracycline >=16 R F Normal [facility] Comment on above: Performed By: #### C BC #### [facility] [address] [place] [address] Dr. Ramses Dumas CBC AUTO DIFFon 08-24-2022 BASO # 0.0 103/ul Normal 0.0-0.1 [facility] Comment on above: Performed By: #### C BC #### [facility] [address] [place] [address] Dr. Ramses Dumas Basophils/100 WBC (Bld) 0.1 % Critically low 0.2-2.0 [facility] Comment on above: Performed By: #### C BC #### [facility] [address] [place] [address] Dr. Ramses Dumas EO # 0.0 103/ul Normal 0.0-0.7 [facility] Comment on above: Performed By: #### C BC #### [facility] [address] [place] [address] Dr. Ramses Dumas Eosinophils/100 WBC (Bld) 0.0 % Critically low 0.9-7.0 [facility] Comment on above: Performed By: #### C BC #### [facility] [address] [place] [address] Dr. Ramses Dumas Erythrocyte distribution width (RBC) [Ratio] 13.5 % Normal 11.0-15.0 [facility] Comment on above: Performed By: #### C BC #### [facility] [address] [place] [address] Dr. Ramses Dumas Hematocrit (Bld) [Volume fraction] 33.0 % Critically low 36.0-48.0 [facility] Comment on above: Performed By: #### C BC #### [facility] [address] [place] [address] Dr. Ramses Dumas Hemoglobin (Bld) [Mass/Vol] 10.7 g/dL Critically low 12.0-16.0 [facility] Comment on above: Performed By: #### C BC #### [facility] [address] [address] [address] Ramses Dumas IG # 0.04 10e3/ul Critically high 0.00-0.03 [facility] Comment on above: Performed By: #### C BC #### [facility] [address] [address] [address] Ramses Dumas IG % 0.4 % Normal 0.0-0.5 [facility] Comment on above: Performed By: #### C BC #### [facility] [address] [address] [address] Ramses Dumas LYMPH # 0.8 103/ul Critically low 1.2-3.8 [facility] Comment on above: Performed By: #### C BC #### [facility] [address] [address] [address] Ramses Dumas Lymphocytes/100 WBC (Bld) 7.9 % Critically low 20.5-60.0 [facility] Comment on above: Performed By: #### C BC #### [facility] [address] [address] [address] Ramses Dumas MANUAL DIFF REQ NO Normal [facility] Comment on above: Performed By: #### C BC #### [facility] [address] [address] [address] Ramses Dumas MCH (RBC) [Entitic mass] 26.5 pg Critically low 26.7-34.0 [facility] Comment on above: Performed By: #### C BC #### [facility] [address] [address] [address] Ramses Dumas MCHC (RBC) [Mass/Vol] 32.4 g/dL Normal 29.9-35.2 [facility] Comment on above: Performed By: #### C BC #### [facility] [address] [address] [address] Ramses Dumas MCV (RBC) [Entitic vol] 81.7 fL Normal 81.0-99.0 [facility] Comment on above: Performed By: #### C BC #### [facility] [address] [address] [address] Ramses Dumas MONO # 0.6 103/ul Normal 0.3-0.8 [facility] Comment on above: Performed By: #### C BC #### [facility] [address] [address] [address] Ramses Dumas Monocytes/100 WBC (Bld) 6.3 % Normal 1.7-12.0 [facility] Comment on above: Performed By: #### C BC #### [facility] [address] [address] [address] Ramses Dumas NEUT # 8.6 103/ul Critically high 1.4-6.5 [facility] Comment on above: Performed By: #### C BC #### [facility] [address] [place] [address] Dr. Ramses Duams Neutrophils/100 WBC (Bld) 85.3 % Critically high 43.0-75.0 [facility] Comment on above: Performed By: #### C BC #### [facility] [address] [place] [address] Dr. Ramses Dumas Platelet mean volume (Bld) [Entitic vol] 9.1 fL Critically low 9.5-13.5 [facility] Comment on above: Performed By: #### C BC #### [facility] [address] [place] [address] Dr. Ramses Dumas PLT 248 103/ul Normal 150-450 [facility] Comment on above: Performed By: #### C BC #### [facility] [address] [address] [address] Ramses Dumas RBC 4.04 106/ul Critically low 4.20-5.40 [facility] Comment on above: Performed By: #### C BC #### [facility] [address] [place] [address] Dr. Ramses Dumas WBC 10.1 103/ul Normal 4.0-11.0 [facility] Comment on above: Performed By: #### C BC #### [facility] [address] [place] [address] Dr. Ramses Dumas CULTURE URINEon 08-24-2022 CULTURE [...] S F Tetracycline >=16 R F Normal [facility] Comment on above: Performed By: #### U RCX #### [facility] [address] [place] [address] Dr. Ramses Dumas PROF 14(COMP METB)on 022 Albumin [Mass/Vol] 2.4 g/dL Critically low 3.4-5.0 [facility] Comment on above: Performed By: #### C VDTBH #### [facility] [address] [place] [address] Dr. Ramses Dumas Albumin/Globulin [Mass ratio] 0.7 {ratio} Normal [facility] Comment on above: Performed By: #### C VDTBH #### [facility] [address] [place] [address] Dr. Ramses Dumas ALP [Catalytic activity/Vol] 95 U/L Normal 46-116 [facility] Comment on above: Performed By: #### C VDTBH #### [facility] [address] [place] [address] Dr. Ramses Dumas ALT [Catalytic activity/Vol] 327 U/L Critically high 14-59 [facility] Comment on above: Performed By: #### C VDTBH #### [facility] [address] [place] [address] Dr. Ramses Dumas Anion gap [Moles/Vol] 8.7 mmol/L Normal [facility] Comment on above: Performed By: #### C VDTBH #### [facility] [address] [address] [address] Ramses Dumas AST [Catalytic activity/Vol] 165 U/L Critically high 15-37 [facility] Comment on above: Performed By: #### C VDTBH #### [facility] [address] [address] [address] Ramses Dumas Bilirubin [Mass/Vol] 0.4 mg/dL Normal 0.2-1.0 [facility] Comment on above: Performed By: #### C VDTBH #### [facility] [address] [address] [address] Ramses Dumas Calcium [Mass/Vol] 8.0 mg/dL Critically low 8.5-10.1 [facility] Comment on above: Performed By: #### C VDTBH #### [facility] [address] [place] [address] Dr. Ramses Dumas Chloride [Moles/Vol] 108 mmol/L Critically high 98-107 [facility] Comment on above: Performed By: #### C VDTBH #### [facility] [address] [address] [address] Ramses Dumas CO2 [Moles/Vol] 25.3 mmol/L Normal 21.0-32.0 [facility] Comment on above: Performed By: #### C VDTBH #### [facility] [address] [place] [address] Dr. Ramses Dumas Creatinine [Mass/Vol] 0.70 mg/dL Normal 0.55-1.02 [facility] Comment on above: Performed By: #### C VDTBH #### [facility] [address] [address] [address] Ramses Dumas EGFR-AF AUSTRALIAN >60 Normal >=60 [facility] Comment on above: Performed By: #### C VDTBH #### [facility] [address] [address] [address] Ramses Dumas EGFR-NON AF AUSTRALIAN >60 Normal >=60 [facility] Comment on above: Performed By: #### C VDTBH #### [facility] [address] [address] [address] Ramses Dumas Globulin (S) [Mass/Vol] 3.6 g/dL Normal [facility] Comment on above: Performed By: #### C VDTBH #### [facility] [address] [address] [address] Ramses Dumas Glucose [Mass/Vol] 160 mg/dL Critically high 74-106 [facility] Comment on above: Performed By: #### C VDTBH #### [facility] [address] [place] [address] Dr. Ramses Dumas Potassium [Moles/Vol] 4.0 mmol/L Normal 3.5-5.1 [facility] Comment on above: Performed By: #### C VDTBH #### [facility] [address] [place] [address] Dr. Ramses Dumas Protein [Mass/Vol] 6.0 g/dL Critically low 6.4-8.2 [facility] Comment on above: Performed By: #### C VDTBH #### [facility] [address] [place] [address] Dr. Ramses Dumas Sodium [Moles/Vol] 138 mmol/L Normal 136-145 [facility] Comment on above: Performed By: #### C VDTBH #### [facility] [address] [place] [address] Dr. Ramses Dumas Urea nitrogen [Mass/Vol] 6.0 mg/dL Critically low 7.0-18.0 [facility] Comment on above: Performed By: #### C VDTBH #### [facility] [address] [place] [address] Dr. Ramses Dumas Urea nitrogen/Creatinine [Mass ratio] 8.6 mg/mg Normal [facility] Comment on above: Performed By: #### C VDTBH #### [facility] [address] [place] [address] Dr. Ramses Dumas CBC AUTO DIFFon 08-23-2022 BASO # 0.0 103/ul Normal 0.0-0.1 [facility] Comment on above: Performed By: #### U RCX #### [facility] [address] [address] [address] Ramses Dumas Basophils/100 WBC (Bld) 0.2 % Normal 0.2-2.0 [facility] Comment on above: Performed By: #### U RCX #### [facility] [address] [place] [address] Dr. Ramses Dumas EO # 0.0 103/ul Normal 0.0-0.7 [facility] Comment on above: Performed By: #### U RCX #### [facility] [address] [place] [address] Dr. Ramses Dumas Eosinophils/100 WBC (Bld) 0.1 % Critically low 0.9-7.0 [facility] Comment on above: Performed By: #### U RCX #### [facility] [address] [place] [address] Dr. Ramses Dumas Erythrocyte distribution width (RBC) [Ratio] 13.4 % Normal 11.0-15.0 [facility] Comment on above: Performed By: #### U RCX #### [facility] [address] [place] [address] Dr. Ramses Dumas Hematocrit (Bld) [Volume fraction] 34.1 % Critically low 36.0-48.0 [facility] Comment on above: Performed By: #### U RCX #### [facility] [address] [place] [address] Dr. Ramses Dumas Hemoglobin (Bld) [Mass/Vol] 10.9 g/dL Critically low 12.0-16.0 [facility] Comment on above: Performed By: #### U RCX #### [facility] [address] [place] [address] Dr. Ramses Dumas IG # 0.02 10e3/ul Normal 0.00-0.03 [facility] Comment on above: Performed By: #### U RCX #### [facility] [address] [place] [address] Dr. Ramses Dumas IG % 0.2 % Normal 0.0-0.5 [facility] Comment on above: Performed By: #### U RCX #### [facility] [address] [address] [address] Ramses Dumas LYMPH # 0.7 103/ul Critically low 1.2-3.8 [facility] Comment on above: Performed By: #### U RCX #### [facility] [address] [address] [address] Ramses Dumas Lymphocytes/100 WBC (Bld) 6.9 % Critically low 20.5-60.0 [facility] Comment on above: Performed By: #### U RCX #### [facility] [address] [address] [address] Ramses Dumas MANUAL DIFF REQ NO Normal [facility] Comment on above: Performed By: #### U RCX #### [facility] [address] [address] [address] Ramses Dumas MCH (RBC) [Entitic mass] 26.1 pg Critically low 26.7-34.0 [facility] Comment on above: Performed By: #### U RCX #### [facility] [address] [address] [address] Ramses Dumas MCHC (RBC) [Mass/Vol] 32.0 g/dL Normal 29.9-35.2 [facility] Comment on above: Performed By: #### U RCX #### [facility] [address] [address] [address] Ramses Dumas MCV (RBC) [Entitic vol] 81.8 fL Normal 81.0-99.0 [facility] Comment on above: Performed By: #### U RCX #### [facility] [address] [address] [address] Ramses Dumas MONO # 0.6 103/ul Normal 0.3-0.8 [facility] Comment on above: Performed By: #### U RCX #### [facility] [address] [address] [address] Ramses Dumas Monocytes/100 WBC (Bld) 5.9 % Normal 1.7-12.0 [facility] Comment on above: Performed By: #### U RCX #### [facility] [address] [address] [address] Ramses Dumas NEUT # 8.2 103/ul Critically high 1.4-6.5 [facility] Comment on above: Performed By: #### U RCX #### [facility] [address] [address] [address] Ramses Dumas Neutrophils/100 WBC (Bld) 86.7 % Critically high 43.0-75.0 [facility] Comment on above: Performed By: #### U RCX #### [facility] [address] [address] [address] Ramses Dumas Platelet mean volume (Bld) [Entitic vol] 9.4 fL Critically low 9.5-13.5 [facility] Comment on above: Performed By: #### U RCX #### [facility] [address] [address] [address] Ramses Dumas PLT 235 103/ul Normal 150-450 [facility] Comment on above: Performed By: #### U RCX #### [facility] [address] [address] [address] Ramses Dumas RBC 4.17 106/ul Critically low 4.20-5.40 [facility] Comment on above: Performed By: #### U RCX #### [facility] [address] [address] [address] Ramses uDmas WBC 9.5 103/ul Normal 4.0-11.0 [facility] Comment on above: Performed By: #### U RCX #### [facility] [address] [address] [address] Ramses Dumas PROF 14(COMP METB)on 022 Albumin [Mass/Vol] 2.6 g/dL Critically low 3.4-5.0 [facility] Comment on above: Performed By: #### U KJ 24 #### [facility] [address] [place] [address] Dr. Ramses Dumas Albumin/Globulin [Mass ratio] 0.8 {ratio} Normal [facility] Comment on above: Performed By: #### U KJ 24 #### [facility] [address] [address] [address] Ramses Dumas ALP [Catalytic activity/Vol] 82 U/L Normal 46-116 [facility] Comment on above: Performed By: #### U KJ 24 #### [facility] [address] [address] [address] Ramses Dumas ALT [Catalytic activity/Vol] 257 U/L Critically high 14-59 [facility] Comment on above: Performed By: #### U KJ 24 #### [facility] [address] [address] [address] Ramses Dumas Anion gap [Moles/Vol] 10.3 mmol/L Normal [facility] Comment on above: Performed By: #### U KJ 24 #### [facility] [address] [address] [address] Ramses Dumas AST [Catalytic activity/Vol] 196 U/L Critically high 15-37 [facility] Comment on above: Performed By: #### U KJ 24 #### [facility] [address] [address] [address] Ramses Dumas Bilirubin [Mass/Vol] 0.5 mg/dL Normal 0.2-1.0 [facility] Comment on above: Performed By: #### U KJ 24 #### [facility] [address] [address] [address] Ramses Dumas Calcium [Mass/Vol] 7.8 mg/dL Critically low 8.5-10.1 [facility] Comment on above: Performed By: #### U KJ 24 #### [facility] [address] [address] [address] Ramses Dumas Chloride [Moles/Vol] 104 mmol/L Normal 98-107 [facility] Comment on above: Performed By: #### U KJ 24 #### [facility] [address] [address] [address] Ramses Dumas CO2 [Moles/Vol] 24.4 mmol/L Normal 21.0-32.0 [facility] Comment on above: Performed By: #### U KJ 24 #### [facility] [address] [address] [address] Ramses Dumas Creatinine [Mass/Vol] 1.09 mg/dL Critically high 0.55-1.02 [facility] Comment on above: Performed By: #### U KJ 24 #### [facility] [address] [address] [address] Ramses Dumas EGFR-AF AUSTRALIAN >60 Normal >=60 [facility] Comment on above: Performed By: #### U KJ 24 #### [facility] [address] [address] [address] Ramses Dumas EGFR-NON AF AUSTRALIAN 59 mL/min/1.73m2 Critically low >=60 [facility] Comment on above: Performed By: #### U KJ 24 #### [facility] [address] [address] [address] Ramses Dumas Globulin (S) [Mass/Vol] 3.3 g/dL Normal [facility] Comment on above: Performed By: #### U KJ 24 #### [facility] [address] [address] [address] Ramses Dumas Glucose [Mass/Vol] 143 mg/dL Critically high 74-106 [facility] Comment on above: Performed By: #### U KJ 24 #### [facility] [address] [address] [address] Ramses Dumas Potassium [Moles/Vol] 3.7 mmol/L Normal 3.5-5.1 [facility] Comment on above: Performed By: #### U KJ 24 #### [facility] [address] [address] [address] Ramses Dumas Protein [Mass/Vol] 5.9 g/dL Critically low 6.4-8.2 [facility] Comment on above: Performed By: #### U KJ 24 #### [facility] [address] [address] [address] Ramses Dumas Sodium [Moles/Vol] 135 mmol/L Critically low 136-145 [facility] Comment on above: Performed By: #### U KJ 24 #### [facility] [address] [address] [address] Ramses Dumas Urea nitrogen [Mass/Vol] 10.0 mg/dL Normal 7.0-18.0 [facility] Comment on above: Performed By: #### U KJ 24 #### [facility] [address] [place] [address] Dr. Ramses Dumas Urea nitrogen/Creatinine [Mass ratio] 9.2 mg/mg Normal [facility] Comment on above: Performed By: #### U KJ 24 #### [facility] [address] [place] [address] Dr. Ramses Dumas BLOOD CULTURE ID PANELon A. baumannii Not detected Normal NOT DETECTED [facility] Comment on above: Performed By: #### C VDTBH #### [facility] [address] [place] [address] Dr. Ramses Dumas Bacteriodes fragilis Not detected Normal NOT DETECTED [facility] Comment on above: Performed By: #### C VDTBH #### [facility] [address] [place] [address] Dr. Ramses BAKER CONTROLS PASSED Normal [facility] Comment on above: Performed By: #### C VDTBH #### [facility] [address] [place] [address] Dr. Ramses Dumas BCIDBTHD BLOOD CULTURE BOTTLE INFORMATION Normal [facility] Comment on above: Performed By: #### C VDTBH #### [facility] [address] [place] [address] Dr. Ramses Dumas BCIDHD1 ANTIMICROBIAL RESISTANCE GENES Normal [facility] Comment on above: Performed By: #### C VDTBH #### [facility] [address] [place] [address] Dr. Ramses uDmas BCIDHD2 SEE BELOW Normal [facility] Comment on above: Result Comment: Note : Antimicrobial resitance can occur via multiple mechanisms. A Not Detected result for the [employer] antomicrobial resistance gene assays does not indicate antimicrobial susceptibility. Subculturing is required for species identification and susceptibility testing of isolates. Performed By: #### C VDTBH #### [facility] [address] [place] [address] Dr. Ramses Dumas BCIDHD3 Positive Normal [facility] Comment on above: Performed By: #### C VDTBH #### [facility] [address] [place] [address] Dr. Ramses Dumas BCIDHD4 Negative Normal [facility] Comment on above: Performed By: #### C VDTBH #### [facility] [address] [place] [address] Dr. Ramses Dumas BCIDHD5 YEAST [facility] Comment on above: Performed By: #### C VDTBH #### [facility] [address] [place] [address] Dr. Ramses Garcia Set: Set 1 [facility] Comment on above: Performed By: #### C VDTBH #### [facility] [address] [place] [address] Dr. Ramses Dumas Bottle: Pediatric Normal [facility] Comment on above: Performed By: #### C VDTBH #### [facility] [address] [place] [address] Dr. Ramses Vincent. neoformans/gattii Not detected Normal NOT DETECTED [facility] Comment on above: Performed By: #### C VDTBH #### [facility] [address] [place] [address] Dr. Ramses Dumas Kim albicans Not detected Normal NOT DETECTED [facility] Comment on above: Performed By: #### C VDTBH #### [facility] [address] [place] [address] Dr. Ramses Dumas Kim auris Not detected Normal NOT DETECTED [facility] Comment on above: Performed By: #### C VDTBH #### [facility] [address] [place] [address] Dr. Ramses Dumas Kim glabrata Not detected Normal NOT DETECTED [facility] Comment on above: Performed By: #### C VDTBH #### [facility] [address] [place] [address] Dr. Ramses Dumas Kim Krusei Not detected Normal NOT DETECTED [facility] Comment on above: Performed By: #### C VDTBH #### [facility] [address] [place] [address] Dr. Ramses Dumas Kim Parapsilosis Not detected Normal NOT DETECTED [facility] Comment on above: Performed By: #### C VDTBH #### [facility] [address] [place] [address] Dr. Ramses Dumas Kim Tropicalis Not detected Normal NOT DETECTED [facility] Comment on above: Performed By: #### C VDTBH #### [facility] [address] [place] [address] Dr. Ramses Dumas CTX-M Resistant Gene Not Applicable Normal NOT DETECTE D [facility] Comment on above: Performed By: #### C VDTBH #### [facility] [address] [place] [address] Dr. Ramses Dumas E. Cloacae complex Not detected Normal NOT DETECTED [facility] Comment on above: Performed By: #### C VDTBH #### [facility] [address] [place] [address] Dr. Ramses Dumas E. faecalis Not detected Normal NOT DETECTED [facility] Comment on above: Performed By: #### C VDTBH #### [facility] [address] [place] [address] Dr. Ramses Dumas E. faecium Not detected Normal NOT DETECTED [facility] Comment on above: Performed By: #### C VDTBH #### [facility] [address] [place] [address] Dr. Ramses Dumas Enterobacteriaceae Not detected Normal NOT DETECTED [facility] Comment on above: Performed By: #### C VDTBH #### [facility] [address] [place] [address] Dr. Ramses Dumas Escherichia coli Not detected Normal NOT DETECTED [facility] Comment on above: Performed By: #### C VDTBH #### [facility] [address] [place] [address] Dr. Ramses Dumas H. influenzae Not detected Normal NOT DETECTED [facility] Comment on above: Performed By: #### C VDTBH #### [facility] [address] [place] [address] Dr. Ramses Dumas IMP Resistant Gene Not Applicable Normal NOT DETECTED [facility] Comment on above: Performed By: #### C VDTBH #### [facility] [address] [place] [address] Dr. Ramses Betancourt. oxytoca Not detected Normal NOT DETECTED [facility] Comment on above: Performed By: #### C VDTBH #### [facility] [address] [place] [address] Dr. Ramses Dumas K. pneumoniae Not detected Normal NOT DETECTED [facility] Comment on above: Performed By: #### C VDTBH #### [facility] [address] [place] [address] Dr. Ramses Dumas Klebsiella aerogenes Not detected Normal NOT DETECTED [facility] Comment on above: Performed By: #### C VDTBH #### [facility] [address] [place] [address] Dr. Ramses Dumas KPC Resistant Gene Not detected Normal NOT DETECTED [facility] Comment on above: Performed By: #### C VDTBH #### [facility] [address] [place] [address] Dr. Ramses Dumas List. monocytogenes Not detected Normal NOT DETECTED [facility] Comment on above: Performed By: #### C VDTBH #### [facility] [address] [place] [address] Dr. Ramses Dumas Mcr-1 Resistant Gene Not Applicable Normal NOT DETECTE D [facility] Comment on above: Performed By: #### C VDTBH #### [facility] [address] [place] [address] Dr. Ramses Dumas mecA/C Not Applicable Normal NOT DETECTED [facility] Comment on above: Performed By: #### C VDTBH #### [facility] [address] [place] [address] Dr. Ramses Dumas mecA/C MREJ Not Applicable Normal NOT DETECTED [facility] Comment on above: Performed By: #### C VDTBH #### [facility] [address] [place] [address] Dr. Ramses Dumas N. meningitidis Not detected Normal NOT DETECTED [facility] Comment on above: Performed By: #### C VDTBH #### [facility] [address] [place] [address] Dr. Ramses Dumas NDM Resistant Gene Not Applicable Normal NOT DETECTED [facility] Comment on above: Performed By: #### C VDTBH #### [facility] [address] [place] [address] Dr. Ramses Dumas Oxa-48-like Not Applicable Normal NOT DETECTED [facility] Comment on above: Performed By: #### C VDTBH #### [facility] [address] [place] [address] Dr. Ramses Dumas Proteus Not detected Normal NOT DETECTED [facility] Comment on above: Performed By: #### C VDTBH #### [facility] [address] [place] [address] Dr. Ramses Dumas Pseud. aeruginosa Not detected Normal NOT DETECTED [facility] Comment on above: Performed By: #### C VDTBH #### [facility] [address] [place] [address] Dr. Ramses Dumas S. maltophilia Not detected Normal NOT DETECTED [facility] Comment on above: Performed By: #### C VDTBH #### [facility] [address] [place] [address] Dr. Ramses Dumas Salmonella Not detected Normal NOT DETECTED [facility] Comment on above: Performed By: #### C VDTBH #### [facility] [address] [place] [address] Dr. Ramses Dumas Seratia marcescens Not detected Normal NOT DETECTED [facility] Comment on above: Performed By: #### C VDTBH #### [facility] [address] [place] [address] Dr. Ramses Dumas Site: unknown/not given Normal [facility] Comment on above: Performed By: #### C VDTBH #### [facility] [address] [place] [address] Dr. Ramses Dumas Stapphillip. aureus Not detected Normal NOT DETECTED [facility] Comment on above: Performed By: #### C VDTBH #### [facility] [address] [place] [address] Dr. Ramses Dumas Stapphillip. epidermidis Not detected Normal NOT DETECTED [facility] Comment on above: Performed By: #### C VDTBH #### [facility] [address] [place] [address] Dr. Ramses Dumas Stapphillip. lugdunensis Not detected Normal NOT DETECTED [facility] Comment on above: Performed By: #### C VDTBH #### [facility] [address] [place] [address] Dr. Ramses Dumas Staphylococcus Not detected Normal NOT DETECTED [facility] Comment on above: Performed By: #### C VDTBH #### [facility] [address] [place] [address] Dr. Ramses Dumas Strep. agalactiae Detected Critically abnormal NOT DETECTED [facility] Comment on above: Performed By: #### C VDTBH #### [facility] [address] [place] [address] Dr. Ramses Dumas Strep. pneumoniae Not detected Normal NOT DETECTED [facility] Comment on above: Performed By: #### C VDTBH #### [facility] [address] [place] [address] Dr. Ramses Dumas Strep. pyogenes Not detected Normal NOT DETECTED [facility] Comment on above: Performed By: #### C VDTBH #### [facility] [address] [place] [address] Dr. Ramses Dumas Streptococcus Detected Critically abnormal NOT DETECTED [facility] Comment on above: Performed By: #### C VDTBH #### [facility] [address] [place] [address] Dr. Ramses Dumas Efrain/B Resist. Gene Not detected Normal NOT DETECTED [facility] Comment on above: Performed By: #### C VDTBH #### [facility] [address] [place] [address] Dr. Ramses Dumas VIM Resistant Gene Not Applicable Normal NOT DETECTED [facility] Comment on above: Performed By: #### C VDTBH #### [facility] [address] [place] [address] Dr. Ramses Dumas CBC AUTO DIFFon 08-22-2022 BASO # 0.1 103/ul Normal 0.0-0.1 [facility] Comment on above: Performed By: #### U KJ 24 #### [facility] [address] [place] [address] Dr. Ramses Dumas Basophils/100 WBC (Bld) 0.7 % Normal 0.2-2.0 [facility] Comment on above: Performed By: #### U KJ 24 #### [facility] [address] [place] [address] Dr. Ramses Dumas EO # 0.1 103/ul Normal 0.0-0.7 [facility] Comment on above: Performed By: #### U KJ 24 #### [facility] [address] [place] [address] Dr. Ramses Dumas Eosinophils/100 WBC (Bld) 1.7 % Normal 0.9-7.0 [facility] Comment on above: Performed By: #### U KJ 24 #### [facility] [address] [place] [address] Dr. Ramses Dumas Erythrocyte distribution width (RBC) [Ratio] 13.2 % Normal 11.0-15.0 [facility] Comment on above: Performed By: #### U KJ 24 #### [facility] [address] [place] [address] Dr. Ramses Dumas Hematocrit (Bld) [Volume fraction] 39.8 % Normal 36.0-48.0 [facility] Comment on above: Performed By: #### U KJ 24 #### [facility] [address] [place] [address] Dr. Ramses Dumas Hemoglobin (Bld) [Mass/Vol] 12.9 g/dL Normal 12.0-16.0 [facility] Comment on above: Performed By: #### U KJ 24 #### [facility] [address] [address] [address] Ramses Dumas IG # 0.02 10e3/ul Normal 0.00-0.03 [facility] Comment on above: Performed By: #### U KJ 24 #### [facility] [address] [place] [address] Dr. Ramses Dumas IG % 0.2 % Normal 0.0-0.5 [facility] Comment on above: Performed By: #### U KJ 24 #### [facility] [address] [place] [address] Dr. Ramses Dumas LYMPH # 3.2 103/ul Normal 1.2-3.8 [facility] Comment on above: Performed By: #### U KJ 24 #### [facility] [address] [place] [address] Dr. Ramses Dumas Lymphocytes/100 WBC (Bld) 40.0 % Normal 20.5-60.0 [facility] Comment on above: Performed By: #### U KJ 24 #### [facility] [address] [place] [address] Dr. Ramses Dumas MANUAL DIFF REQ NO Normal [facility] Comment on above: Performed By: #### U KJ 24 #### [facility] [address] [place] [address] Dr. Ramses Dumas MCH (RBC) [Entitic mass] 26.6 pg Critically low 26.7-34.0 [facility] Comment on above: Performed By: #### U KJ 24 #### [facility] [address] [place] [address] Dr. Ramses Dumas MCHC (RBC) [Mass/Vol] 32.4 g/dL Normal 29.9-35.2 [facility] Comment on above: Performed By: #### U KJ 24 #### [facility] [address] [place] [address] Dr. Ramses Dumas MCV (RBC) [Entitic vol] 82.1 fL Normal 81.0-99.0 [facility] Comment on above: Performed By: #### U KJ 24 #### [facility] [address] [place] [address] Dr. Ramses Dumas MONO # 0.6 103/ul Normal 0.3-0.8 [facility] Comment on above: Performed By: #### U KJ 24 #### [facility] [address] [place] [address] Dr. Ramses Dumas Monocytes/100 WBC (Bld) 7.5 % Normal 1.7-12.0 [facility] Comment on above: Performed By: #### U KJ 24 #### [facility] [address] [place] [address] Dr. Ramses Dumas NEUT # 4.0 103/ul Normal 1.4-6.5 [facility] Comment on above: Performed By: #### U KJ 24 #### [facility] [address] [place] [address] Dr. Ramses Dumas Neutrophils/100 WBC (Bld) 49.9 % Normal 43.0-75.0 [facility] Comment on above: Performed By: #### U KJ 24 #### [facility] [address] [place] [address] Dr. Ramses Dumas Platelet mean volume (Bld) [Entitic vol] 9.3 fL Critically low 9.5-13.5 [facility] Comment on above: Performed By: #### U KJ 24 #### [facility] [address] [place] [address] Dr. Ramses Dumas PLT 354 103/ul Normal 150-450 [facility] Comment on above: Performed By: #### U KJ 24 #### [facility] [address] [place] [address] Dr. Ramses Dumas RBC 4.85 106/ul Normal 4.20-5.40 [facility] Comment on above: Performed By: #### U KJ 24 #### [facility] [address] [place] [address] Dr. Ramses Dumas WBC 8.1 103/ul Normal 4.0-11.0 [facility] Comment on above: Performed By: #### U KJ 24 #### [facility] [address] [place] [address] ABD/PELVIS WO CONon [...] KESHIA IRIZARRY Date: 2022-08-22 07:04 Normal [facility] Covid-19 PCR (CVDTB)on SARS-CoV-2 (COVID-19) RNA FRANCESCA+probe Ql (Unsp spec) Not detected Normal NOT DETECTED [facility] Comment on above: Result Comment: When diagnostic [...] for this test is supported by the [employer] and Human Service's declaration that [...] used). Performed By: #### C MP #### [facility] [address] [place] [address] Dr. Ramses Dumas ER URINE PROFILEon 2 Bilirubin Ql (U) Negative Normal NEGATIVE [facility] Comment on above: Performed By: #### U RCX #### [facility] [address] [place] [address] Dr. Ramses Dumas Clarity (U) CLEAR Normal CLEAR [facility] Comment on above: Performed By: #### U RCX #### [facility] [address] [place] [address] Dr. Ramses Dumas Color (U) LT. YELLOW Normal YELLOW [facility] Comment on above: Performed By: #### U RCX #### [facility] [address] [place] [address] Dr. Ramses Dumas ERUWalter A micrscopic examination will be performed if indicated. Normal [facility] Comment on above: Performed By: #### U RCX #### [facility] [address] [place] [address] Dr. Ramses Dumas Glucose Ql (U) Negative Normal NEGATIVE [facility] Comment on above: Performed By: #### U RCX #### [facility] [address] [place] [address] Dr. Ramses Dumas Hemoglobin Ql (U) SMALL Abnormal NEGATIVE [facility] Comment on above: Performed By: #### U RCX #### [facility] [address] [place] [address] Dr. Ramses Dumas Ketones Ql (U) Negative Normal NEGATIVE [facility] Comment on above: Performed By: #### U RCX #### [facility] [address] [place] [address] Dr. Ramses Dumas LEUKOCYTES SMALL Abnormal NEGATIVE [facility] Comment on above: Performed By: #### U RCX #### [facility] [address] [place] [address] Dr. Ramses Dumas Nitrite Ql (U) Negative Normal NEGATIVE [facility] Comment on above: Performed By: #### U RCX #### [facility] [address] [place] [address] Dr. Ramses Dumas pH (U) 7.0 [pH] Normal 5-9 [facility] Comment on above: Performed By: #### U RCX #### [facility] [address] [place] [address] Dr. Ramses Dumas Protein (U) [Mass/Vol] 30 mg/dL Abnormal NEGAT CHRIS/ TRACE [facility] Comment on above: Performed By: #### U RCX #### [facility] [address] [place] [address] Dr. Ramses Dumas SPEC GRAVITY 1.020 Normal 1.005-<=1.02 5 [facility] Comment on above: Performed By: #### U RCX #### [facility] [address] [place] [address] Dr. Ramses Dumas UR MICRO IND INDICATED Normal [facility] Comment on above: Performed By: #### U RCX #### [facility] [address] [place] [address] Dr. Ramses Dumas Urobilinogen Qn (U) 0.2 {Lucero'U}/dL Normal 0.2 - 1. 0 [facility] Comment on above: Performed By: #### U RCX #### [facility] [address] [place] [address] Dr. Ramses Dumas LACTATE/LACTIC ACIDon 2021 Lactate [Moles/Vol] 2.3 mmol/L Critically high 0.4-1.9 [facility] Comment on above: Performed By: #### U RCX #### [facility] [address] [place] [address] Dr. Ramses Dumas URon 08-22-2022 , QUAL Negative Normal NEGATIVE [facility] Comment on above: Performed By: #### U RCX #### [facility] [address] [address] [address] Ramses Dumas PROF 14(COMP METB)on 022 Albumin [Mass/Vol] 3.5 g/dL Normal 3.4-5.0 [facility] Comment on above: Performed By: #### U RCX #### [facility] [address] [address] [address] Ramses Dumas Albumin/Globulin [Mass ratio] 0.9 {ratio} Normal [facility] Comment on above: Performed By: #### U RCX #### [facility] [address] [address] [address] Ramses Dumas ALP [Catalytic activity/Vol] 92 U/L Normal 46-116 [facility] Comment on above: Performed By: #### U RCX #### [facility] [address] [place] [address] Dr. Ramses Dumas ALT [Catalytic activity/Vol] 139 U/L Critically high 14-59 [facility] Comment on above: Performed By: #### U RCX #### [facility] [address] [address] [address] Ramses Dumas Anion gap [Moles/Vol] 10.2 mmol/L Normal [facility] Comment on above: Performed By: #### U RCX #### [facility] [address] [address] [address] Ramses Dumas AST [Catalytic activity/Vol] 112 U/L Critically high 15-37 [facility] Comment on above: Performed By: #### U RCX #### [facility] [address] [address] [address] Ramses Dumas Bilirubin [Mass/Vol] 0.2 mg/dL Normal 0.2-1.0 [facility] Comment on above: Performed By: #### U RCX #### [facility] [address] [address] [address] Ramses Dumas Calcium [Mass/Vol] 8.8 mg/dL Normal 8.5-10.1 [facility] Comment on above: Performed By: #### U RCX #### [facility] [address] [address] [address] Ramses Dumas Chloride [Moles/Vol] 105 mmol/L Normal 98-107 [facility] Comment on above: Performed By: #### U RCX #### [facility] [address] [address] [address] Ramses Dumas CO2 [Moles/Vol] 26.3 mmol/L Normal 21.0-32.0 [facility] Comment on above: Performed By: #### U RCX #### [facility] [address] [address] [address] Ramses Dumas Creatinine [Mass/Vol] 0.95 mg/dL Normal 0.55-1.02 [facility] Comment on above: Performed By: #### U RCX #### [facility] [address] [place] [address] Dr. Ramses Dumas EGFR-AF AUSTRALIAN >60 Normal >=60 [facility] Comment on above: Performed By: #### U RCX #### [facility] [address] [address] [address] Ramses Dumas EGFR-NON AF AUSTRALIAN >60 Normal >=60 [facility] Comment on above: Performed By: #### U RCX #### [facility] [address] [address] [address] Ramses Dumas Globulin (S) [Mass/Vol] 3.9 g/dL Normal [facility] Comment on above: Performed By: #### U RCX #### [facility] [address] [address] [address] Ramses Dumas Glucose [Mass/Vol] 137 mg/dL Critically high 74-106 [facility] Comment on above: Performed By: #### U RCX #### [facility] [address] [address] [address] Ramses Dumas Potassium [Moles/Vol] 3.5 mmol/L Normal 3.5-5.1 [facility] Comment on above: Performed By: #### U RCX #### [facility] [address] [address] [address] Ramses Dumas Protein [Mass/Vol] 7.4 g/dL Normal 6.4-8.2 [facility] Comment on above: Performed By: #### U RCX #### [facility] [address] [address] [address] Ramses Dumas Sodium [Moles/Vol] 138 mmol/L Normal 136-145 [facility] Comment on above: Performed By: #### U RCX #### [facility] [address] [place] [address] Dr. Ramses Dumas Urea nitrogen [Mass/Vol] 11.0 mg/dL Normal 7.0-18.0 [facility] Comment on above: Performed By: #### U RCX #### [facility] [address] [place] [address] Dr. Ramses Dumas Urea nitrogen/Creatinine [Mass ratio] 11.6 mg/mg Normal [facility] Comment on above: Performed By: #### U RCX #### [facility] [address] [place] [address] Dr. Ramses Dumas URINE MICROSCOPIC ONLYon BACTERIA LARGE Abnormal NONE SEEN [facility] Comment on above: Performed By: #### U RCX #### [facility] [address] [place] [address] Dr. Ramses Dumas Bacteria identified Cx Nom (U) CX ALREADY ORDERED Normal [facility] Comment on above: Performed By: #### U RCX #### [facility] [address] [address] [address] Ramses Dumas CAST NONE SEEN Normal NONE SEEN [facility] Comment on above: Performed By: #### U RCX #### [facility] [address] [place] [address] Dr. Ramses Dumas Crystals LM Nom (Urine sed) NONE SEEN Normal NONE SEEN [facility] Comment on above: Performed By: #### U RCX #### [facility] [address] [place] [address] Dr. Ramses Dumas Epithelial cells LM Ql (Urine sed) MANY Abnormal NONE SEEN /RARE [facility] Comment on above: Performed By: #### U RCX #### [facility] [address] [place] [address] Dr. Ramses Dumas MUCOUS NONE SEEN Normal NONE SEEN [facility] Comment on above: Performed By: #### U RCX #### [facility] [address] [place] [address] Dr. Ramses Dumas RBC 5-10 Abnormal 0-2 [facility] Comment on above: Performed By: #### U RCX #### [facility] [address] [place] [address] Dr. Ramses Dumas WBC 50-75 Abnormal NONE SEEN [facility] Comment on above: Performed By: #### U RCX #### [facility] [address] [place] [address] Dr. Ramses Dumas CULTURE URINEon 08-15-2022 CULTURE [...] F Tetracycline >=16 R F Normal [facility] Comment on above: Performed By: #### U RCX #### [facility] [address] [place] [address] Dr. Ramses Dumas ACETAMINOPHENon 08-13-2022 Acetaminophen [Mass/Vol] ug/mL Critically low 10.0-30.0 [facility] Comment on above: Performed By: #### U RCX #### [facility] [address] [place] [address] Dr. Ramses Dumas CBC AUTO DIFFon 08-13-2022 BASO # 0.1 103/ul Normal 0.0-0.1 [facility] Comment on above: Performed By: #### C VDTBH #### [facility] [address] [place] [address] Dr. Ramses Dumas Basophils/100 WBC (Bld) 0.8 % Normal 0.2-2.0 [facility] Comment on above: Performed By: #### C VDTBH #### [facility] [address] [place] [address] Dr. Ramses Dumas EO # 0.1 103/ul Normal 0.0-0.7 [facility] Comment on above: Performed By: #### C VDTBH #### [facility] [address] [place] [address] Dr. Ramses Dumas Eosinophils/100 WBC (Bld) 1.6 % Normal 0.9-7.0 [facility] Comment on above: Performed By: #### C VDTBH #### [facility] [address] [place] [address] Dr. Ramses Dumas Erythrocyte distribution width (RBC) [Ratio] 13.3 % Normal 11.0-15.0 [facility] Comment on above: Performed By: #### C VDTBH #### [facility] [address] [place] [address] Dr. Ramses Dumas Hematocrit (Bld) [Volume fraction] 40.6 % Normal 36.0-48.0 [facility] Comment on above: Performed By: #### C VDTBH #### [facility] [address] [place] [address] Dr. Ramses Dumas Hemoglobin (Bld) [Mass/Vol] 13.2 g/dL Normal 12.0-16.0 [facility] Comment on above: Performed By: #### C VDTBH #### [facility] [address] [place] [address] Dr. Ramses Dumas IG # 0.01 10e3/ul Normal 0.00-0.03 [facility] Comment on above: Performed By: #### C VDTBH #### [facility] [address] [place] [address] Dr. Ramses Dumas IG % 0.2 % Normal 0.0-0.5 [facility] Comment on above: Performed By: #### C VDTBH #### [facility] [address] [place] [address] Dr. Ramses Dumas LYMPH # 2.4 103/ul Normal 1.2-3.8 [facility] Comment on above: Performed By: #### C VDTBH #### [facility] [address] [place] [address] Dr. Ramses Dumas Lymphocytes/100 WBC (Bld) 37.7 % Normal 20.5-60.0 [facility] Comment on above: Performed By: #### C VDTBH #### [facility] [address] [place] [address] Dr. Ramses Dumas MANUAL DIFF REQ NO Normal [facility] Comment on above: Performed By: #### C VDTBH #### [facility] [address] [place] [address] Dr. Ramses Dumas MCH (RBC) [Entitic mass] 26.7 pg Normal 26.7-34.0 [facility] Comment on above: Performed By: #### C VDTBH #### [facility] [address] [place] [address] Dr. Ramses Dumas MCHC (RBC) [Mass/Vol] 32.5 g/dL Normal 29.9-35.2 [facility] Comment on above: Performed By: #### C VDTBH #### [facility] [address] [place] [address] Dr. Ramses Dumas MCV (RBC) [Entitic vol] 82.0 fL Normal 81.0-99.0 [facility] Comment on above: Performed By: #### C VDTBH #### [facility] [address] [place] [address] Dr. Ramses Dumas MONO # 0.6 103/ul Normal 0.3-0.8 [facility] Comment on above: Performed By: #### C VDTBH #### [facility] [address] [place] [address] Dr. Ramses Dumas Monocytes/100 WBC (Bld) 8.6 % Normal 1.7-12.0 [facility] Comment on above: Performed By: #### C VDTBH #### [facility] [address] [place] [address] Dr. Ramses Dumas NEUT # 3.3 103/ul Normal 1.4-6.5 [facility] Comment on above: Performed By: #### C VDTBH #### [facility] [address] [place] [address] Dr. Ramses Dumas Neutrophils/100 WBC (Bld) 51.1 % Normal 43.0-75.0 [facility] Comment on above: Performed By: #### C VDTBH #### [facility] [address] [place] [address] Dr. Ramses Dumas Platelet mean volume (Bld) [Entitic vol] 8.7 fL Critically low 9.5-13.5 [facility] Comment on above: Performed By: #### C VDTBH #### [facility] [address] [place] [address] Dr. Ramses Dumas PLT 409 103/ul Normal 150-450 [facility] Comment on above: Performed By: #### C VDTBH #### [facility] [address] [place] [address] Dr. Ramses Dumas RBC 4.95 106/ul Normal 4.20-5.40 [facility] Comment on above: Performed By: #### C VDTBH #### [facility] [address] [place] [address] Dr. Ramses Dumas WBC 6.4 103/ul Normal 4.0-11.0 [facility] Comment on above: Performed By: #### C VDTBH #### [facility] [address] [place] [address] Dr. Ramses Dumas Covid-19 PCR ([facility])on 07-20 SARS-CoV-2 (COVID-19) RNA FRANCESCA+probe Ql (Unsp spec) Not detected Normal NOT DETECTED [facility] Comment on above: Result Comment: When diagnostic [...] for this test is supported by the [place] of [employer] and Human Service's declaration that [...] used). Performed By: #### C VDTB #### [facility] [address] [place] [address] Dr. Ramses Dumas DRUG SCREEN RAPID (URINE)on 08-13-2022 AMP Negative Normal NEGATIVE [facility] Comment on above: Performed By: #### C BC #### [facility] [address] [place] [address] Dr. Ramses Dumas BAR Negative Normal NEGATIVE [facility] Comment on above: Performed By: #### C BC #### [facility] [address] [place] [address] Dr. Ramses Dumas BUP Negative Normal NEGATIVE [facility] Comment on above: Performed By: #### C BC #### [facility] [address] [place] [address] Dr. Ramses Dumas BZO Negative Normal NEGATIVE [facility] Comment on above: Performed By: #### C BC #### [facility] [address] [place] [address] Dr. Ramses Dumas ODILIA Negative Normal NEGATIVE [facility] Comment on above: Performed By: #### C BC #### [facility] [address] [place] [address] Dr. Ramses Dumas CUT-OFFS SEE BELOW Normal [facility] Comment on above: Result Comment: AMP (Amphetamine): 500ng/mL, BAR (Barbituates): 200 ng/mL, BZO (Benzodiazepines): 150 ng/mL, BUP (Buprenorphine): 10 ng/mL, ODILIA (Cocaine): 150 ng/mL, mAMP (Methamphetamine): 500 ng/mL, MTD (Methadone): 200 ng/mL, OPI (Opiates): 100 ng/mL, OXY (Oxycodone): 100 ng/mL, PCP (Phencyclidine): 25 ng/mL, PPX (Propoxyphene): 300 ng/mL, THC (Cannabinoids): 50 ng/mL, TCA (Trycyclic Antidepressants): 300 ng/mL Performed By: #### C BC #### [facility] [address] [place] [address] Dr. Ramses Dumas DRUG CUT HEADER DRUG CLASS TEST SYST EM CUT-OFF CONCENTRATIONS ARE FOLLOWS: Normal [facility] Comment on above: Performed By: #### C BC #### [facility] [address] [place] [address] Dr. Ramses Dumas mAMP Negative Normal NEGATIVE [facility] Comment on above: Performed By: #### C BC #### [facility] [address] [place] [address] Dr. Ramses Dumas MTD Negative Normal NEGATIVE [facility] Comment on above: Performed By: #### C BC #### [facility] [address] [place] [address] Dr. Ramses Dumas OPI Negative Normal NEGATIVE [facility] Comment on above: Performed By: #### C BC #### [facility] [address] [place] [address] Dr. Ramses Dumas OXY Negative Normal NEGATIVE [facility] Comment on above: Performed By: #### C BC #### [facility] [address] [place] [address] Dr. Ramses Dumas PCP Negative Normal NEGATIVE [facility] Comment on above: Performed By: #### C BC #### [facility] [address] [place] [address] Dr. Ramses Dumas PPX Negative Normal NEGATIVE [facility] Comment on above: Performed By: #### C BC #### [facility] [address] [place] [address] Dr. Ramses Dumas TCA Negative Normal NEGATIVE [facility] Comment on above: Performed By: #### C BC #### [facility] [address] [place] [address] Dr. Ramses Dumas THC Negative Normal NEGATIVE [facility] Comment on above: Performed By: #### C BC #### [facility] [address] [place] [address] Dr. Ramses Dumas ER URINE PROFILEon 2 Bilirubin Ql (U) Negative Normal NEGATIVE [facility] Comment on above: Performed By: #### C BC #### [facility] [address] [place] [address] Dr. Ramses Dumas Clarity (U) CLEAR Normal CLEAR [facility] Comment on above: Performed By: #### C BC #### [facility] [address] [place] [address] Dr. Ramses Dumas Color (U) LT. YELLOW Normal YELLOW [facility] Comment on above: Performed By: #### C BC #### [facility] [address] [place] [address] Dr. Ramses Dumas ERUWalter A micrscopic examination will be performed if indicated. Normal [facility] Comment on above: Performed By: #### C BC #### [facility] [address] [place] [address] Dr. Ramses Dumas Glucose Ql (U) Negative Normal NEGATIVE [facility] Comment on above: Performed By: #### C BC #### [facility] [address] [place] [address] Dr. Ramses Dumas Hemoglobin Ql (U) LARGE Abnormal NEGATIVE [facility] Comment on above: Performed By: #### C BC #### [facility] [address] [place] [address] Dr. Ramses Dumas Ketones Ql (U) Negative Normal NEGATIVE [facility] Comment on above: Performed By: #### C BC #### [facility] [address] [place] [address] Dr. Ramses Dumas LEUKOCYTES LARGE Abnormal NEGATIVE [facility] Comment on above: Performed By: #### C BC #### [facility] [address] [place] [address] Dr. Ramses Dumas Nitrite Ql (U) Positive Abnormal NEGATIVE [facility] Comment on above: Performed By: #### C BC #### [facility] [address] [place] [address] Dr. Ramses Dumas pH (U) 6.0 [pH] Normal 5-9 [facility] Comment on above: Performed By: #### C BC #### [facility] [address] [place] [address] Dr. Ramses Dumas Protein (U) [Mass/Vol] 30 mg/dL Abnormal NEGAT CHRIS/ TRACE [facility] Comment on above: Performed By: #### C BC #### [facility] [address] [place] [address] Dr. Ramses Dumas SPEC GRAVITY >=1.030 Abnormal 1.005-<=1.02 5 [facility] Comment on above: Performed By: #### C BC #### [facility] [address] [place] [address] Dr. Ramses Dumas UR MICRO IND INDICATED Normal [facility] Comment on above: Performed By: #### C BC #### [facility] [address] [place] [address] Dr. Ramses Dumas Urobilinogen Qn (U) 0.2 {Lucero'U}/dL Normal 0.2 - 1. 0 [facility] Comment on above: Performed By: #### C BC #### [facility] [address] [place] [address] Dr. Ramses Dumas ETHANOL (BLD ALC)on 08-13-20 ALC NOTE NOTE: 80 mg/dl is th e legal limit for a blood alcohol level Normal [facility] Comment on above: Performed By: #### B LDCX2 #### [facility] [address] [place] [address] Dr. Ramses Dumas Ethanol [Mass/Vol] mg/dL Normal [facility] Comment on above: Performed By: #### B LDCX2 #### [facility] [address] [place] [address] Dr. Ramses Dumas URon 08-13-2022 , QUAL Negative Normal NEGATIVE [facility] Comment on above: Performed By: #### C BC #### [facility] [address] [place] [address] Dr. Ramses Dumas PROF 14(COMP METB)on 022 Albumin [Mass/Vol] 3.8 g/dL Normal 3.4-5.0 [facility] Comment on above: Performed By: #### U RCX #### [facility] [address] [place] [address] Dr. Ramses Dumas Albumin/Globulin [Mass ratio] 0.9 {ratio} Normal [facility] Comment on above: Performed By: #### U RCX #### [facility] [address] [place] [address] Dr. Ramses Dumas ALP [Catalytic activity/Vol] 82 U/L Normal 46-116 [facility] Comment on above: Performed By: #### U RCX #### [facility] [address] [place] [address] Dr. Ramses Dumas ALT [Catalytic activity/Vol] 41 U/L Normal 14-59 [facility] Comment on above: Performed By: #### U RCX #### [facility] [address] [place] [address] Dr. Ramses Dumas Anion gap [Moles/Vol] 9.3 mmol/L Normal [facility] Comment on above: Performed By: #### U RCX #### [facility] [address] [place] [address] Dr. Ramses Dumas AST [Catalytic activity/Vol] 21 U/L Normal 15-37 [facility] Comment on above: Performed By: #### U RCX #### [facility] [address] [place] [address] Dr. Ramses Dumas Bilirubin [Mass/Vol] 0.3 mg/dL Normal 0.2-1.0 [facility] Comment on above: Performed By: #### U RCX #### [facility] [address] [place] [address] Dr. Ramses Dumas Calcium [Mass/Vol] 8.9 mg/dL Normal 8.5-10.1 [facility] Comment on above: Performed By: #### U RCX #### [facility] [address] [address] [address] Ramses Dumas Chloride [Moles/Vol] 105 mmol/L Normal 98-107 [facility] Comment on above: Performed By: #### U RCX #### [facility] [address] [address] [address] Ramses Dumas CO2 [Moles/Vol] 28.5 mmol/L Normal 21.0-32.0 [facility] Comment on above: Performed By: #### U RCX #### [facility] [address] [address] [address] Ramses Dumas Creatinine [Mass/Vol] 0.81 mg/dL Normal 0.55-1.02 [facility] Comment on above: Performed By: #### U RCX #### [facility] [address] [place] [address] Dr. Ramses Dumas EGFR-AF AUSTRALIAN >60 Normal >=60 [facility] Comment on above: Performed By: #### U RCX #### [facility] [address] [address] [address] Ramses Dumas EGFR-NON AF AUSTRALIAN >60 Normal >=60 [facility] Comment on above: Performed By: #### U RCX #### [facility] [address] [address] [address] Ramses Dumas Globulin (S) [Mass/Vol] 4.1 g/dL Normal [facility] Comment on above: Performed By: #### U RCX #### [facility] [address] [address] [address] Ramses Dumas Glucose [Mass/Vol] 100 mg/dL Normal 74-106 [facility] Comment on above: Performed By: #### U RCX #### [facility] [address] [address] [address] Ramses Dumas Potassium [Moles/Vol] 3.8 mmol/L Normal 3.5-5.1 [facility] Comment on above: Performed By: #### U RCX #### [facility] [address] [address] [address] Ramses Dumas Protein [Mass/Vol] 7.9 g/dL Normal 6.4-8.2 [facility] Comment on above: Performed By: #### U RCX #### [facility] [address] [place] [address] Dr. Ramses Dumas Sodium [Moles/Vol] 139 mmol/L Normal 136-145 [facility] Comment on above: Performed By: #### U RCX #### [facility] [address] [place] [address] Dr. Ramses Dumas Urea nitrogen [Mass/Vol] 10.0 mg/dL Normal 7.0-18.0 [facility] Comment on above: Performed By: #### U RCX #### [facility] [address] [place] [address] Dr. Ramses Dumas Urea nitrogen/Creatinine [Mass ratio] 12.3 mg/mg Normal [facility] Comment on above: Performed By: #### U RCX #### [facility] [address] [place] [address] Dr. Ramses Dumas SALICYLATEon 08-13-2022 SALICYLATE <2.8 Normal <=19.9 [facility] Comment on above: Performed By: #### U RCX #### [facility] [address] [place] [address] Dr. Ramses Dumas URINE MICROSCOPIC ONLYon BACTERIA LARGE Abnormal NONE SEEN [facility] Comment on above: Performed By: #### C BC #### [facility] [address] [place] [address] Dr. Ramses Dumas Bacteria identified Cx Nom (U) INDICATED Normal [facility] Comment on above: Performed By: #### C BC #### [facility] [address] [place] [address] Dr. Ramses Dumas CA OX CRYSTALS RARE Normal [facility] Comment on above: Performed By: #### C BC #### [facility] [address] [place] [address] Dr. Ramses Dumas CAST NONE SEEN Normal NONE SEEN [facility] Comment on above: Performed By: #### C BC #### [facility] [address] [place] [address] Dr. Ramses Dumas Crystals LM Nom (Urine sed) SEEN Abnormal NONE SEEN [facility] Comment on above: Performed By: #### C BC #### [facility] [address] [address] [address] Ramses Dumas Epithelial cells LM Ql (Urine sed) MODERATE Abnormal NONE SEEN /RARE [facility] Comment on above: Performed By: #### C BC #### [facility] [address] [place] [address] Dr. Ramses Dumas MUCOUS NONE SEEN Normal NONE SEEN [facility] Comment on above: Performed By: #### C BC #### [facility] [address] [place] [address] Dr. Ramses Dumas RBC 10-20 Abnormal 0-2 [facility] Comment on above: Performed By: #### C BC #### [facility] [address] [place] [address] Dr. Ramses Dumas WBC 20-50 Abnormal NONE SEEN [facility] Comment on above: Performed By: #### C BC #### [facility] [address] [place] [address] Dr. Ramses Dumas Pap IG,rfx Aptima HPV all pt hon 08-09-2022 . . Normal [facility] Comment on above: Performed By: #### C MP #### [facility] [address] [place] [address] Dr. Ramses Dumas DIAGNOSIS: Comment Abnormal [facility] Comment on above: Result Comment: EPIT HELIAL CELL ABNORMALITY. LOW GRADE SQUAMOUS INTRAEPITHELIAL LESION (LSIL). Performed By: #### C MP #### [facility] [address] [place] [address] Dr. Ramses Dumas Electronically signed by: Comment Normal [facility] Comment on above: Result Comment: Arnaud Joseph MD, Pathologist Performed By: #### C MP #### [facility] [address] [place] [address] Dr. Ramses Dumas HPV Aptima Negative Normal Negative [facility] Comment on above: Result Comment: This nucleic acid amplification test detects fourteen high-risk HPV types (16,18,31,33,35,39,45,51,52,56,58,59,66,68) without differentiation. Performed By: #### C MP #### [facility] [address] [place] [address] Dr. Ramses Dumas Methodology: Comment [facility] Comment on above: Result Comment: This liquid based ThinPrep(R) pap test was screened with the use of an image guided system. Performed By: #### C MP #### [facility] [address] [place] [address] Dr. Ramses Dumas Note: Comment Normal [facility] Comment on above: Result Comment: The Pap smear is a screening test designed to aid in the detection of premalignant and malignant conditions of the uterine cervix. It is not a diagnostic procedure and should not be used as the sole means of detecting cervical cancer. Both false-positive and false-negative reports do occur. . Performed By: #### C MP #### [facility] [address] [place] [address] Dr. Ramses Dumas Pathologist Provided ICD10 Comment [facility] Comment on above: Result Comment: [id number] Performed By: #### C MP #### [facility] [address] [place] [address] Dr. Ramses Dumas Performed by: Comment Normal [facility] Comment on above: Result Comment: Gail Ruano, Extrusion Former (ASCP) Performed By: #### C MP #### [facility] [address] [place] [address] Dr. Ramses Dumas Reflex Criteria: Comment Normal [facility] Comment on above: Result Comment: See below for HPV testing results. . Performed By: #### C MP #### [facility] [address] [place], [place] [id number] Dr. Ramses Dumas Specimen adequacy: Comment Normal [facility] Comment on above: Result Comment: Sati sfactory for evaluation. Endocervical and/or squamous metaplastic cells (endocervical component) are present. Performed By: #### C MP #### [facility] [address] [address] [address] Ramses Dumas Vital Signs Date Time Vital Sign Value Performing Clinician Ronnie perez 04-10-2024 07:30-0400 Body temperature 98 [degF] MD Domingo Das Work Phone: [facility] 04-10-2024 07:30-0400 Diastolic blood pressure 73 mm[Hg] MD Domingo Das Work Phone: [facility] 04-10-2024 07:30-0400 Heart rate 75 /min MD Domingo Das Work Phone: [facility] 04-10-2024 07:30-0400 Respiratory rate 16 /min MD Domingo Das Work Phone: [facility] 04-10-2024 07:30-0400 SaO2% (BldA) [Mass fraction] 100 % MD Domingo Dsa Work Phone: [facility] 04-10-2024 07:30-0400 Systolic blood pressure 123 mm[Hg] MD Domingo Das Work Phone: [facility] 04-08-2024 22:44-0400 Body height 167.64 cm MD Domingo Das Work Phone: [facility] 04-08-2024 22:44-0400 Body weight 86.58 kg MD Doimngo Das Work Phone: [facility] 03-20-2023 10:30-0400 Blood Pressure Location Nona VILLA [facility] 03-20-2023 10:30-0400 Diastolic blood pressure 73 mm[Hg] Nona VILLA [facility] 03-20-2023 10:30-0400 Heart rate 80 /min Nona VILLA [facility] 03-20-2023 10:30-0400 Respiratory rate 16 /min Nona VILLA [facility] [facility] 03-20-2023 10:30-0400 Systolic blood pressure 128 mm[Hg] Nona IDALMIS [facility] Encounters Encounter Date Encounter Type Care Provider Facility Start: 04-09-2024 Non-patient / Non-visit MD Vicente Das Work Phone: [facility] Work Phone: Start: 04-08-2024 End: 04-10-2024 Evaluation and management of inpatient MD Domingo Das Work Phone: [address] Work Phone: Start: 04-08-2024 ambulatory Domingo Das Facility: [facility] Start: 12-29-2023 End: 12-29-2023 ambulatory [place] Facility:[facility] Start: 12-17-2023 End: 12-17-2023 ambulatory CELIO VAN Not Available Start: 12-04-2023 End: 12-05-2023 ambulatory Nona VILLA Facility:[facility] Start: 12-04-2023 End: 12-04-2023 Patient encounter procedure Nona VILLA [facility] Start: 04-09-2023 End: 04-10-2023 ambulatory Nona VILLA Facility:[id number] Start: 03-20-2023 End: 03-21-2023 ambulatory Nona VILLA Facility:[facility] Start: 03-20-2023 End: 03-20-2023 Patient encounter procedure Nona VILLA [facility] Start: 02-16-2023 End: 02-16-[address] DOMINGO DAS . Facility: Start: 02-02-2023 End: 02-02-[address] DOMINGO DAS . Facility: Start: 12-26-2022 End: 12-27-2022 ambulatory Nona VILLA Facility:[facility] Start: 12-26-2022 End: 12-26-2022 Patient encounter procedure Nona VILLA [facility] Start: 12-16-2022 End: 12-17-[address] NONA VILLA . Facility:[facility] Start: 12-15-2022 End: 12-16-[address] NONA VILLA . Facility:[facility] Start: 11-27-[address] DOMINGO DAS . Facili ty:[facility]1 Start: 11-07-2022 End: 11-07-[address] DOMINGO DAS . Facility: Start: 11-04-2022 Encounter for preprocedural cardiovascular examination DR JEFFERSON GIBBS . [facility] Start: 11-04-2022 Encounter for preprocedural laboratory examination DR JEFFERSON GIBBS . [facility] Start: 11-03-2022 End: 11-04-2022 Encounter for preprocedural cardiovascular examination DR DOMINGO DAS . Facility:[facility] Start: 11-03-2022 End: 11-04-[address] DOMINGO DAS . Facility: Start: 09-20-2022 Encounter for preprocedural laboratory examination DR NONA VILLA . [facility] Start: 09-18-2022 End: 09-18-[address] NONA VILLA . Facility:[facility] Start: 09-16-2022 End: 09-17-[address] NONA VILLA . Facility: Start: 09-16-2022 End: 09-17-2022 Encounter for preprocedural laboratory examination DR NONA VILLA . Facility:[facility] Start: 09-05-2022 End: 09-05-2022 ambulatory ORA BOND . 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 Facility:[facility] Start: 08-13-2022 End: 08-13-2022 ambulatory ORA BOND . Facility:[facility] Start: 07-31-2022 Encounter for cervic al smear to confirm findings of recent normal smear following initial abnormal smear DR JEFFERSON GIBBS . [facility] Start: 07-30-2022 End: 07-30-[address] [...] Date Care Activity Detail Author Start: 04-10-2024 [facility] Start: 06-21-2024 Referral to Land Department Head [facility] Start: 04-08-2024 Hospital admission [facility] Start: 04-08-2024 [facility] Start: 06-19-2022 Influenza vaccination INFLUENZA (#1) [facility] Start: 10-19-2021 DEPRESSION ASSESSMENT DEPRESSION ASSESSMENT [facility] Start: 2021 HPV TESTING HPV TESTING [facility] Start: 2012 PAP TESTING PAP TESTING [facility] Start: 2010 Urine microalbumin profile DTAP,TDAP,TD (1 - Tdap) [facility] Start: 2009 HEPATITIS C SCREENING HEPATITIS C SCREENING [facility] Start: 2009 HIV SCREENING HIV SCREENING [facility] Start: 03-14-1992 COVID-19 VACCINE (#1) COVID-19 VACCINE (#1) [facility] Start: 1991 HEPATITIS B (1 of 3 - 3-dose series) HEPATITIS B (1 of 3 - 3-dose series) [facility] Patient Education Bipolar Disord er (DC) [facility] Behavioral Health DC Instructions Know your Meds [facility] Work Phone: Patient referral [facility] Work Phone: Immunizations Immunization Date Immunization Notes Care Provider Beata moore 08-01-2019 influenza virus vaccine, unspecified formulation Nona VILLA [facility] 08-09-2018 tetanus toxoid, redu franco diphtheria toxoid, and acellular pertussis vaccine, adsorbed Nona VILLA [facility] 08-08-2018 influenza virus vaccine, unspecified formulation Nona VILLA [facility] 06-19-2004 hepatitis B vaccine, pediatric or pediatric/adolescent dosage Nona VILLA [facility] 03-27-2004 hepatitis B vaccine, pediatric or pediatric/adolescent dosage Nona VILLA [facility] 12-18-2003 hepatitis B vaccine, pediatric or pediatric/adolescent dosage Nona VILLA [facility] 12-18-2003 measles, mumps and rubella virus vaccine Nona VILLA [facility] 04-10-1993 DTaP, unspecified formulation Nona [employer] [facility] 04-10-1993 poliovirus vaccine, unspecified formulation Nona [employer] [facility] 12-28-1992 Hib, unspecified formulation Nona [employer] [facility] 12-28-1992 measles, mumps and rubella virus vaccine Nona VILLA [facility] 03-26-1992 Hib, unspecified formulation Nona [employer] [facility] 01-18-1992 Hib, unspecified formulation Nona VILLA [facility] 1991 Hib, unspecified formulation Nona VILLA [facility] Payers Date Payer Category Payer Self-pay 2021 Medicaid [place] MEDICA[employer] TERM 09/17 [employer] [employer] [id number] 2021-Present [phone] [address] [place] [address] Medicaid [id number] 1991 Unknown [id number] 2.16.840.1.941579.3.579.2.593 1991 Unknown [id number] 2.16.840.1.661586.3.579.2.593 1991 Unknown [id number] 2.16.840.1.946588.3.579.2.593 1991 Unknown [id number] 2.16.840.1.376079.3.579.2.593 1991 Unknown [id number] 2.16.840.1.839745.3.579.2.593 1991 Unknown [id number] 2.16.840.1.411186.3.579.2.593 1991 Unknown [id number] 2.16.840.1.966636.3.579.2.593 1991 Unknown [id number] 2.16.840.1.761495.3.579.2.593 1991 Unknown [id number] 2.16.840.1.635600.3.579.2.593 1991 Unknown [id number] 2.16.840.1.243830.3.579.2.593 1991 Unknown [id number] 2.16.840.1.265178.3.579.2.593 1991 Unknown [id number] 2.16.840.1.048621.3.579.2.593 1991 Unknown [id number] 2.16.840.1.356475.3.579.2.593 1991 Unknown [id number] 2.16.840.1.029800.3.579.2.593 1991 Unknown [id number] 2.16.840.1.583837.3.579.2.593 1991 Unknown [id number] 2.16.840.1.165716.3.579.2.593 1991 Unknown [id number] 2.16.840.1.301415.3.579.2.727 1991 Unknown [id number] 2.16.840.1.689810.3.579.2.727 1991 Unknown [id number] 2.16.840.1.611810.3.579.2.727 1991 Unknown [id number] 2.16.840.1.870950.3.579.2.727 1991 Unknown [id number] 2.16.840.1.843144.3.579.2.1259 1959 Medicaid [id number] 1959 Self-pay [id number] 1959 Unknown [id number] Unknown [id number] 2.16.840.1.915528.3.579.2.531 Unknown [id number] 2.16.840.1.772299.3.579.2.531 Unknown [id number] 2.16.840.1.809182.3.579.2.531 Social History Date Type Detail Facility Tobacco smoking status TNIS Tobacco smoking consumption unknown [facility] Start: 1990 Sex Assigned At Not on file C [facility] Start: 08-20-2021 End: 04-09-2024 Tobacco smoking status Never smoked tobacco (finding) [facility] Tobacco smoking status Never [facility] Sex Assigned At Female [facility] Start: 1990 Sex Assigned At Female F [facility] Goals Date Patient Goal Desired Activity /State Functional Status Date Assessment Result Facility 04-10-2024 Functional status Patient at Baseline [facility] Work Phone: 03-20-2023 Functional Status N/A [facility] Mental Status Date Assessment Result Facility 04-10-2024 Cognitive function Cognitive Sta tus Patient at Baseline [facility] Work Phone: Clinical Notes 07-03-2022 to 04-10-2024 Note Date & Type Note Facility 04-10-2024 Discharge summary Note Date/Time April 10, 2024 7:10am [facility] [address] [place] [address] Discharge Summary Signed Patient: Diana Barriga MR#: [id number] : 1990 Acct:[id number] Age/Sex: 33 / F Adm Date: 4 Loc: 1S Room: 1W4932-[address]: Arnulfo Aviles MD Copies to: [...] Dr. Fenton but wants to switch to [employer]. Along with this patient is in marriage counseling with her current and that today's session was not good. Patient stated she needs to be home to take care of her kids, the custody [place], and her marriage. Patient upset because she missed her son's play and has plans to take kids to [place] tomorrow. Patient denies any suicidal ideation denies hallucinations denies racing thoughts. Patient reports that there is no changes in her appetite or sleep. Patient reports that she feels fine. She has tried a lot of medications in the past and believes none of them have worked. He is going to [facility] for psych therapy. He wants to try [...] She has an appointment coming up with [facility] She deniedrecent suicide attempts or self injures [...] Restriction Diet: Regular Instructions: Bipolar Disorder (DC), [facility] Behavioral Health DC Instructions, Know your Meds [...] signed by Arnulfo Aviles MD> 04/10/24 0929 [facility] Work Phone: 1(321) 801-129606-22-2024 History and physical note Author Arnulfo ornelas [facility] April 09, 2024 9:09am Note Date/Time April 09, 2024 8:43 am [facility] [address] [place] [address] Psychiatry H&P Signed Patient: Diana Barriga MR#: [id number] : 1990 Acct:[id number] Age/Sex: 33 / F Adm Date: 4 Loc: Room: [address] [place] [address] Type: ADM IN Attending Dr: Arnulfo Aviles [...] Dr. Fenton but wants to switch to [facility]. Along with this patient is in marriage counseling with her current and that today's session was not good. Patient stated she needs to be home to take care of her kids, the custody [place], and her marriage. Patient upset because she missed her son's play and has plans to take kids to [place] tomorrow. Patient denies any suicidal ideation denies hallucinations denies racing thoughts. Patient reports that there is no changes in her appetite or sleep. Patient reports that she feels fine. She has tried a lot of medications in the past and believes none of them have worked. He is going to [facility] for psych therapy. He wants to try therapy before any medications. 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 Review of symptoms: Constitutional: Denies chills [...] homicidally, denies suicidality Insight: Intact Judgment: Intact [facility] Medical History (Updated 08/14/22 @ 08:17 by [...] signed by Arnulfo Aviles MD> 04/09/24 0909 [facility] Work Phone: 1(674) 778-542606-02-2023 Hospital Discharge instructions Follow Up Care 03/20/2023 11:51:58 With:IDALMIS BORDEN, Nona Turner, URL Address: [address] [place] [address]- When: Unknown [facility] 06-02-2023 Hospital Discharge instructions Patient Education [...] include: ?8 oz (237 mL) of milk, wvbbuhi-ykrabwvedtgf-feivn milk, and calcium- fortifiedfruit juice. Calcium-fortified means [...] ?Spinach (cooked), rhubarb, beets, sweet potatoes, and Greek chard. ?Peanuts. ?Potato chips, vietnamese fries, and baked potatoes with skin on. ?Nuts and nut products. ?Chocolate. If you regularly take a diuretic medicine, make sure to eat at least 1 or 2 servings of fruits or vegetables that are high in potassium each day. These include: ?Avocado. ?Banana. ?Cumming, prune, carrot, or tomato juice. ?Baked potato. [...] magnesium, fish oil, or vitamin B6. Take guac-psk-gapiqec and prescription medicines only as told by [...] Casseroles. Pizza. Lasagna. Frozen meals. Potato chips. Kiswahili fries. The items listed above may not [...] provider. Document Revised: 06/16/2022 Document Reviewed: 06/16/2022 [employer] Patient Education 2022 [employer] Follow Up Care 12/26/2022 08:46:46 With:IDALMIS BORDEN, Nona Turner, URL Address: [facility] [address] [place] [address]- When: Unknown [facility]20-2023 NoteOPERATIVE NOTE OPERATION DATE: 11/07/2022 PROCEDURE: Mery endometrial ablation with LEEP. PREOPERATIVE DIAGNOSIS: Cervical dysplasia, menorrhagia. POSTOPERATIVE DIAGNOSIS: Cervical dysplasia, menorrhagia. ANESTHESIA: General. SURGEON: Jefferson Gibbs D.O. TECHNICAL TRAINING MANAGER: None. BLOOD LOSS: 50 mL. URINE [...] taken to Recovery [facility] stable condition.[id number] Discharge instructions Follow Up Care 09/25/2022 13:54:04 With:IDALMIS BORDEN, Nona Turner, URL Address: [address] [place], [place] [address]- When: Unknown [facility] 12-01-2022 NoteOPERATIVE NOTE OPERATION DATE: 09/18/2022 [...] usual fashion. I started by passing a 22-Kiswahili Olympus cystoscope per urethra and into the [...] and wheeled to PACU in stable condition.[id number] NoteHNO ID: [id number] Author: Daniel Santiago APRN.WAYNE Service: ? Author Type: Nurse Practitioner Type: Progress Notes Filed: 09/04/2022 7:46 AM Note Text: The patient did not show up for this appointment. The patient did not show up for this appointment.[id number] History of Present illness Narrative* Daniel Santiago APRN.WAYNE - 09/04/2022 7:40 AM EST The patient did not show up for this appointment. The patient did not show up for this appointment. [facility] NotePROCEDURE: XR ANKLE LT MIN 3 V COMPARISON: None. HISTORY: Sprain of calcaneofibular ligament FINDINGS: BONES:No fracture, acute abnormality, or significant arthropathy. SOFT TISSUES:Extensive lateral soft tissue swelling EFFUSION:None visible. OTHER: Negative. IMPRESSION: Lateral soft tissue swelling. No acute fracture Electronically authenticated by: GLEN GRAFF Date: 2022-07-03 07:09[facility] Future Appointments Appointment Date:03/20/2023 10:15:00 AM Scheduled Provider:Nona VILLA MD Location:[facility] Appointment Type:URO Office Visit [facility] evaluation + Plan note Future Appointments Appointment Date:12/04/2023 09:45:00 AM Scheduled Provider:Nona VILLA MD Location:[facility] Appointment Type:URO Office Visit Diagnostic Tests Pending * Electrolyte Panel 03/20/23 [facility] evaldbacku note* Diagnosis NO SHOW- Primary documented in this encounter [facility] note* Diagnosis Onset Date Resolution Status Bipolar disorder acute [facility] Work Phone: Hospital course Narrative No data available for this section [facility] progress note No data available for this section [facility] Summary Purpose Family History No Family [...] or prosecute any alcohol or drug abuse patient.[facility] Reason for Visit (unrecogniz ed section and content) Reason Onset Date Comments No Show 09/04/2022 No show Care Teams (unrecognized sec tion and content) Tyre Fitter Relationship Specialty Start Date End Date Domingo Das MD [address] [place] [address] Referring Family Medicine 09/01/22 Team Status: Active [...] section and content) DATE CREATED AUTHOR 09/06/2022 [facility] DATE CREATED AUTHOR AUTHOR'S ORGANIZ ATION 02/19/2023 [facility] DATE CREATED AUTHOR AUTHOR'S ORGANIZ ATION 12/06/2023 [facility] DATE CREATED AUTHOR AUTHOR'S ORGANIZ ATION 12/19/2023 [facility] DATE CREATED AUTHOR AUTHOR'S ORGANIZ ATION 07/22/2024 [facility] FOR RECORDS PERTAINING TO [...] BE BASED ON THE PRIMARY CLINICAL RECORDS. [facility]. provides no warranty or guarantee of the accuracy or completeness of information in this document.
--- NOTE | 2024-07-28 09:28 | XR_ITS ---
The [address] [address] Patient Name: CORI BARRIGA MRN: [id number] date: 1990 Sex: F Assigned Patient Location: LAB Current Patient Location: Accession/Order Number: [id number] Exam Date: 07/28/2024 09:45 Report Date: 07/29/2024 04:50 At the request of: DOMINGO SNYDER Procedure: XR hip BI w PEL 1V EXAMINATION: XR hip BI w PEL 1V HISTORY: Myalgia, Low Back Pain, Muscle Spasm COMPARISON: No relevant comparison available. FINDINGS: RIGHT FINDINGS: BONES: No significant arthropathy or acute abnormality. SOFT TISSUES: No visible soft tissue swelling. OTHER: Negative. LEFT FINDINGS: BONES: No significant arthropathy or acute abnormality. SOFT TISSUES: No visible soft tissue swelling. OTHER: Negative. XR/XR hip BI w PEL 1V IMPRESSION: RIGHT CONCLUSION: Normal examination. LEFT CONCLUSION: Normal examination. Electronically authenticated by: JENNIFER GATES Date: 07/29/2024 04:50
--- NOTE | 2024-07-28 09:29 | XR_ITS ---
The [address] [address] Patient Name: CORI BARRIGA MRN: [id number] date: 1990 Sex: F Assigned Patient Location: LAB Current Patient Location: LAB Accession/Order Number: [id number] Exam Date: 07/28/2024 09:45 Report Date: 07/28/2024 11:05 At the request of: DOMINGO SNYDER Procedure: XR lumbar spine min 4V EXAMINATION: XR lumbar spine min 4V HISTORY: Myalgia, Low Back Pain, Muscle Spasm COMPARISON: No relevant comparison available. FINDINGS: BONES: Mild degenerative facet arthropathy L3-4 through L5-S1. No significant spondylosis, scoliosis, fracture, or visible bony lesion. DISC SPACES: No significant disc height narrowing, subluxation, or endplate abnormality. PARASPINOUS: Negative. No paraspinous abnormality is seen. OTHER: Negative. XR/XR lumbar spine min 4V IMPRESSION: 1. Minimal degenerative changes. 2. No acute abnormality. 3. Suspect bilateral nephrolithiasis. Electronically authenticated by: JENNIFER GATES Date: 07/28/2024 11:05
[2024-07-28 09:37] LABS: Basophils Absolute Auto 0.1 10^3/uL (0.0-0.1); Eosinophils Absolute Auto 0.1 10^3/uL (0.0-0.7); Hematocrit 40.4 % (36.0-48.0); Hemoglobin 13.3 g/dL (12.0-16.0); Immature Granulocytes Abs Auto 0.01 10^3/uL (0.00-0.03); Immature Granulocytes Pct Auto 0.1 % (0.0-0.5); Lymphocytes Absolute Auto 2.1 10^3/uL (1.2-3.8); Mean Corpuscular HGB Conc 32.9 g/dL (29.9-35.2); Mean Corpuscular Hemoglobin 28.1 pg (26.7-34.0); Mean Corpuscular Volume 85.4 fL (81.0-99.0); Mean Platelet Volume 9.6 fL (9.5-13.5); Monocytes Absolute Auto 0.4 10^3/uL (0.3-0.8); Monocytes Percent Auto 6.6 % (1.7-12.0); Neutrophils Percent Auto 59.3 % (43.0-75.0); Platelet Count 276 10^3/uL (150-450); Red Blood Count 4.73 10^6/uL (4.20-5.40); Red Cell Distribution Width 12.7 % (11.0-15.0); White Blood Count 6.7 10^3/uL (4.0-11.0)
[2024-07-28 10:20] LABS: Alanine Aminotransferase 44 U/L (14-59); Albumin Level 3.8 g/dL (3.4-5.0); Alkaline Phosphatase 74 U/L (46-116); Anion Gap 14.1; Aspartate Amino Transferase 28 U/L (15-37); BUN Creatinine Ratio 6.7; Bilirubin Total 0.4 mg/dL (0.2-1.0); Calcium 9.4 mg/dL (8.5-10.1); Carbon Dioxide 26.7 mmol/L (21.0-32.0); Chloride 102 mmol/L (98-107); Estimated GFR (African America >60 (>=60 mL/min/1.73m^2); Estimated GFR (Non-African Ame >60 (>=60 mL/min/1.73m^2); Free T3 2.73 pg/mL (2.18-3.98); Globulin 3.8 g/dL; Glucose 91 mg/dL (74-106); Magnesium 1.5 mg/dL (1.8-2.4); Phosphorus 3.6 mg/dL (2.6-4.7); Potassium 3.8 mmol/L (3.5-5.1); Sodium 139 mmol/L (136-145); Thyroid Stimulating Hormone 1.218 uIU/mL (0.358-3.740); Total Protein 7.6 g/dL (6.4-8.2)
[2024-07-29 06:10] LABS: Vitamin B12 295 pg/mL (232-1245)
[2024-07-29 08:12] LABS: Calcium, Ionized, Serum 5.2 mg/dL (4.5-5.6)
== END 2024-07-28 08:57 | disposition home or self-care (01) ==
LOC: LAB 08:58
PROVIDERS: PCP Family Medicine; Visit Provider Family Medicine
DX: M79.10 Myalgia, unspecified site (principal); M54.50 Low back pain, unspecified; D64.9 Anemia, unspecified; E03.9 Hypothyroidism, unspecified; E55.9 Vitamin D deficiency, unspecified
CPT/HCPCS: 36415; 72110; 73523; 80053; 82306; 82330; 82607; 82746; 83540; 83735; 84100; 84436; 84443; 84481; 85025

== ENCOUNTER 2024-09-08 08:51 | Outpatient (OUT) | payer OTHER, SELFPAY ==
[2024-09-08 09:11] LABS: Basophils Absolute Auto 0.1 10^3/uL (0.0-0.1); Basophils Percent Auto 0.8 % (0.2-2.0); Eosinophils Percent Auto 0.2 % (0.9-7.0); Hematocrit 39.7 % (36.0-48.0); Hemoglobin 12.9 g/dL (12.0-16.0); Immature Granulocytes Abs Auto 0.01 10^3/uL (0.00-0.03); Immature Granulocytes Pct Auto 0.2 % (0.0-0.5); Lymphocytes Absolute Auto 1.8 10^3/uL (1.2-3.8); Lymphocytes Percent Auto 29.6 % (20.5-60.0); Mean Corpuscular HGB Conc 32.5 g/dL (29.9-35.2); Mean Corpuscular Hemoglobin 27.9 pg (26.7-34.0); Mean Corpuscular Volume 85.7 fL (81.0-99.0); Mean Platelet Volume 9.4 fL (9.5-13.5); Monocytes Absolute Auto 0.4 10^3/uL (0.3-0.8); Monocytes Percent Auto 7.2 % (1.7-12.0); Neutrophils Absolute Auto 3.7 10^3/uL (1.4-6.5); Platelet Count 320 10^3/uL (150-450); Red Blood Count 4.63 10^6/uL (4.20-5.40); Red Cell Distribution Width 12.8 % (11.0-15.0)
[2024-09-08 09:28] LABS: Ammonia <10 umol/L (11-32)
[2024-09-08 09:59] LABS: Alanine Aminotransferase 23 U/L (14-59); Albumin Globulin Ratio 1.1; Albumin Level 3.7 g/dL (3.4-5.0); Alkaline Phosphatase 59 U/L (46-116); Anion Gap 11.6; Aspartate Amino Transferase 16 U/L (15-37); BUN Creatinine Ratio 9.6; Bilirubin Total 0.6 mg/dL (0.2-1.0); Calcium 8.8 mg/dL (8.5-10.1); Carbon Dioxide 29.1 mmol/L (21.0-32.0); Chloride 104 mmol/L (98-107); Estimated GFR (African America >60 (>=60 mL/min/1.73m^2); Estimated GFR (Non-African Ame >60 (>=60 mL/min/1.73m^2); Globulin 3.3 g/dL; Glucose 96 mg/dL (74-106); Magnesium 1.6 mg/dL (1.8-2.4); Potassium 3.7 mmol/L (3.5-5.1); Sodium 141 mmol/L (136-145)
[2024-09-08 10:11] LABS: C Reactive Protein <0.50 mg/dL (<=0.50)
[2024-09-08 10:17] LABS: Erythrocyte Sedimentation Rate 10 mm/hr (<=20)
== END 2024-09-08 08:52 | disposition home or self-care (01) ==
LOC: LAB 08:52
PROVIDERS: PCP Family Medicine; Visit Provider Family Medicine
DX: Z00.00 Encounter for general adult medical examination without abnormal findings (principal)
CPT/HCPCS: 36415; 80053; 82140; 83735; 85025; 85652; 86140

== ENCOUNTER 2024-09-28 15:24 | Emergency (ER) | payer OTHER, SELFPAY ==
[2024-09-28 15:26] VITALS: BP 120/80; PULSE 95; TEMP 36.7; O2SAT 98; BMI 28.5
--- NOTE | 2024-09-28 15:35 | CT_ITS ---
[address] [address] Patient Name: CORI BARRIGA MRN: [id number] date: 1990 Sex: F Assigned Patient Location: ER Current Patient Location: ER Accession/Order Number: [id number] Exam Date: 09/28/2024 15:52 Report Date: 09/28/2024 16:28 At the request of: STEPHANIE RAMIREZ Procedure: CT abdomen pelvis wo con EXAM: CT abdomen pelvis wo con HISTORY: Left abd, flank pain COMPARISON: 04/20/2024 TECHNIQUE: Dose reduction techniques were achieved by using automated exposure control and/or adjustment of mA and/or kV according to patient size and/or use of iterative reconstruction technique. Noncontrast CT of the abdomen/pelvis. FINDINGS: Mild posterior dependent atelectasis of the lower lobes. Heart size is normal. No pericardial effusion. No focal liver abnormality. Cholecystectomy. Spleen is normal. Distal esophagus, stomach, and duodenum are normal. Pancreas is normal. Nonobstructive stones of the bilateral kidneys. Atrophy of the left kidney. No left hydronephrosis. No left hydroureter. No ureteral stones. No bladder stones. No focal bladder wall thickening. No colonic dilation. No pericolonic fat stranding. Appendix is normal. No small bowel dilation. No adjacent mesenteric edema. No retroperitoneal, pelvic, or inguinal adenopathy. Normal alignment of the bilateral hip joints. Moderate degeneration of the bilateral sacroiliac joints. CT/CT abdomen pelvis wo con IMPRESSION: 1. Nonobstructive stones of the bilateral kidneys. No ureteral stones. No bladder stones. No focal bladder wall thickening. 2. Cholecystectomy. 3. No other acute abnormality of the abdomen or pelvis. Electronically authenticated by: JASON KHALIL Date: 09/28/2024 16:28
--- NOTE | 2024-09-28 15:36 | ED.ABDPAIN1 ---
HPI - Abdominal Pain General Chief Complaint: Abdominal Pain Stated Complaint: Back Pain Time Seen by Provider: 09/28/24 15:28 Source: patient Mode of arrival: walk-in Limitations: no limitations History of Present Illness HPI narrative: 34 year old female presents to the ED for left abd, left flank pain. Onset was last night. Reports nausea. Denies fever, chills, injury, emesis, diarrhea. Denies urinary sx. Reports hx kidney stones. Reports hysterectomy. States her dropped her off today. Related Data Home Medications ?Medication ?Instructions ?Recorded ?Confirmed No Known Home Medications 05/02/24 05/02/24 Previous Rx's ?Medication ?Instructions ?Recorded cephalexin 500 mg capsule 500 mg PO Q8H 5 days #15 caps 09/28/24 ketorolac 10 mg tablet 10 mg PO Q8H PRN pain 2 days #6 09/28/24 tabs Allergies Allergy/AdvReac Type Severity Reaction Status Date / Time No Known Drug Allergies Allergy Verified 04/20/24 22:45 Review of Systems ROS Constitutional Denies: fever or chills Cardiovascular Denies: chest pain Respiratory Denies: shortness of breath Gastrointestinal Reports: abdominal pain and nausea; Denies: vomiting or diarrhea Genitourinary Denies: painful urination, urinary frequency, urinary urgency or blood in urine Musculoskeletal Reports: back pain; Denies: neck pain Integumentary/Breast Denies: rash PFSH PFSH Medical History Anxiety and depression ?F41.9 - Anxiety disorder, unspecified (ICD-10) ?F32.A - Depression, unspecified (ICD-10) Kidney stones ?N20.0 - Calculus of kidney (ICD-10) Bipolar disorder ?F31.9 - Bipolar disorder, unspecified (ICD-10) Kidney stones ?N20.0 - Calculus of kidney (ICD-10) Surgical History History of ultrasound guided needle biopsy ?Z98.890 - Other specified postprocedural states (ICD-10) H/O local excision of skin lesion ?Z98.890 - Other specified postprocedural states (ICD-10) S/P extracorporeal shock wave therapy (03/2023) ?Z98.890 - Other specified postprocedural states (ICD-10) History of wisdom tooth extraction ?K08.409 - Partial loss of teeth, unspecified cause, unspecified class (ICD-10) H/O LEEP ?Z98.890 - Other specified postprocedural states (ICD-10) History of endometrial ablation ?Z98.890 - Other specified postprocedural states (ICD-10) S/P cystoscopy ?Z98.890 - Other specified postprocedural states (ICD-10) S/P ureteral stent placement ?Z96.0 - Presence of urogenital implants (ICD-10) H/O ureteroscopy ?Z98.890 - Other specified postprocedural states (ICD-10) History of cholecystectomy ?Z90.49 - Acquired absence of other specified parts of digestive tract (ICD-10) Family History Other Family history of hypertension Social History Within the past year, how often did you have a drink containing alcohol: monthly or less Smoking status: Never smoker Non-prescribed substance use: denies use 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 Highest level of school completed/degree received: Master's degree Are you now , , , , never or living with a partner: Little interest or pleasure in doing things: not at all Feeling down, depressed, or hopeless: not at all Gender Identity: female Exam Constitutional Vital Signs, click to edit/add: Last Vital Signs Temp 98.1 F 09/28/24 15:26 Pulse 95 H 09/28/24 15:26 Resp 18 09/28/24 15:26 BP 120/80 09/28/24 15:26 Pulse Ox 98 09/28/24 15:26 O2 Del Method Room Air 09/28/24 15:26 Common normals: no apparent distress and oriented x3 General appearance: cooperative; not ill appearing HENMT Mouth: oral and palatal mucosa normal and lip normal Eye Common normals: conjunctivae normal and no scleral icterus Neck & C-Spine Common normals: supple Chest Chest: symmetrical chest wall rise Respiratory Common normals: normal respiratory effort Effort & inspection: able to speak in complete sentences Cardio Common normals: regular rate and regular rhythm GI Common normals: Normal to inspection, nondistended, normoactive bowel sounds present and soft to palpation Palpation: tender Details: LLQ Back & Pelvis General back: CVA tenderness (minimal) CVA tenderness: left Neuro Common normals: oriented x3 and moves all extremities Sensorium/orientation: awake and alert Speech: speech normal Course Vital Signs Vital signs: Vital Signs Temperature 98.1 F 09/28/24 15:26 Pulse Rate 95 H 09/28/24 15:26 Respiratory Rate 18 09/28/24 15:26 Blood Pressure 120/80 09/28/24 15:26 Pulse Oximetry 98 09/28/24 15:26 Oxygen Delivery Method Room Air 09/28/24 15:26 Temperature 98.1 F 09/28/24 15:26 Pulse Rate 95 H 09/28/24 15:26 Respiratory Rate 18 09/28/24 15:26 Blood Pressure 120/80 09/28/24 15:26 Pulse Oximetry 98 09/28/24 15:26 Oxygen Delivery Method Room Air 09/28/24 15:26 MDM - Abdominal Pain MDM Narrative Medical decision making narrative: Urinalysis showed infection; culture was pending. WBC count was 5.7. BUN and creatinine were unremarkable. CT scan was negative for acute findings. Findings were discussed with the patient. She was given medication with improvement in her discomfort. Prescriptions were provided for Keflex and Toradol. Follow up with pcp for a recheck, further evaluation and treatment. Differential Diagnosis Differential diagnosis: Likely abdominal pain, calculus of kidney, diverticulitis and other (UTI) Medical Records Attestation: I reviewed the patient's medical records. Lab Data Attestation: I reviewed the patient's lab results. Labs: Lab Results 09/28/24 09/28/24 Range/Units 15:34 15:41 WBC 5.7 (4.0-11.0) 10^3/uL RBC 4.98 (4.20-5.40) 10^6/uL Hgb 14.0 (12.0-16.0) g/dL Hct 42.0 (36.0-48.0) % MCV 84.3 (81.0-99.0) fL MCH 28.1 (26.7-34.0) pg MCHC 33.3 (29.9-35.2) g/dL RDW 13.2 (11.0-15.0) % Plt Count 264 (150-450) 10^3/uL MPV 8.9 L (9.5-13.5) fL Seg Neuts % (Manual) 37.0 L (43.0-75.0) Lymphocytes % (Manual) 49.0 (20.5-60.0) % Monocytes % (Manual) 13.0 H (1.7-12.0) % Eosinophils % (Manual) 0.0 L (0.9-7.0) % Basophils % (Manual) 1.0 (0.2-2.0) % Neutrophils # (Manual) 2.10 (1.4-6.5) 10^3/uL Lymphocytes # (Manual) 2.79 (1.20-3.80) 10^3/uL Monocytes # (Manual) 0.74 (0.30-0.80) 10^3/uL Eosinophils # (Manual) 0.00 (0.00-0.70) 10^3/uL Basophils # (Manual) 0.05 (0.00-0.10) 10^3/uL Sodium 143 (136-145) mmol/L Potassium 3.6 (3.5-5.1) mmol/L Chloride 106 (98-107) mmol/L Carbon Dioxide 28.6 (21.0-32.0) mmol/L Anion Gap 12.0 BUN 10.0 (7.0-18.0) mg/dL Creatinine 0.89 (0.55-1.02) mg/dL Est GFR ( Amer) >60 (>=60 mL/min/1.73m^2) Est GFR (Non-Af Amer) >60 (>=60 mL/min/1.73m^2) BUN/Creatinine Ratio 11.2 Glucose 89 (74-106) mg/dL Calcium 9.0 (8.5-10.1) mg/dL Total Bilirubin 0.6 (0.2-1.0) mg/dL AST 38 H (15-37) U/L ALT 65 H (14-59) U/L Alkaline Phosphatase 111 (46-116) U/L Total Protein 7.5 (6.4-8.2) g/dL Albumin 3.7 (3.4-5.0) g/dL Globulin 3.8 g/dL Albumin/Globulin Ratio 1.0 Urine Color Lt. yellow (YELLOW) Urine Clarity Sl cloudy (CLEAR) Urine pH 6.5 (5.0-9.0) Ur Specific [place] 1.020 (1.005-1.025) Urine Protein 30 A (NEG/TRACE) mg/dL Urine Glucose (UA) Negative (NEGATIVE) mg/dL Urine Ketones Negative (NEGATIVE) mg/dL Urine Occult Blood Moderate A (NEGATIVE) Urine Nitrite Positive A (NEGATIVE) Urine Bilirubin Negative (NEGATIVE) Urine Urobilinogen 1.0 (0.2-1.0) EU/dL Ur Leukocyte Esterase Small A (NEGATIVE) Urine RBC 2-5 A (0-2) #/HPF Urine WBC 50-75 A (NONE SEEN) #/HPF Ur Squamous Epith Cells Few A (NONE/RARE) #/LPF Urine Crystals None seen (None Seen) #/HPF Urine Bacteria Large A (NONE SEEN) #/HPF Urine Casts None seen (NONE SEEN) #/LPF Urine Mucus Moderate A (NONE SEEN) Ur Culture Indicated? Yes Imaging Data CT scan - abdomen: Radiologist's impression: ITS Impressions Abdomen/Pelvis CT 09/28/24 15:35 IMPRESSION: 1. Nonobstructive stones of the bilateral kidneys. No ureteral stones. No bladder stones. No focal bladder wall thickening. 2. Cholecystectomy. 3. No other acute abnormality of the abdomen or pelvis. Electronically authenticated by: JASON KHALIL Date: 09/28/2024 16:28 Discharge Plan Discharge Chief Complaint: Abdominal Pain Clinical Impression: UTI (urinary tract infection) Patient Disposition: Home, Self-Care Time of Disposition Decision: 17:03 Condition: Good Mode of Transportation: Private Vehicle Prescriptions / Home Meds: New cephalexin 500 mg capsule 500 mg PO Q8H 5 Days Qty: 15 0RF ketorolac 10 mg tablet 10 mg PO Q8H PRN (Reason: pain) 2 Days Qty: 6 0RF No Action No Known Home Medications Print Language: Vincentian Instructions: Urinary Tract Infection in Women (ED) Additional Instructions: Return to the ER for worsening symptoms. Referrals: Ignacio Das MD [Primary Care Provider] - 1 week Discharge Date/Time: 09/28/24 17:13
[2024-09-28] MEDS: ONDANSETRON PF 4 MG/2 ML VIAL IV (15:47)
[2024-09-28] MEDS: MORPHINE SULFATE 2 MG/ML SYRINGE IV (15:47)
[2024-09-28 15:55] LABS: Mean Corpuscular HGB Conc 33.3 g/dL (29.9-35.2); Mean Corpuscular Hemoglobin 28.1 pg (26.7-34.0); Mean Corpuscular Volume 84.3 fL (81.0-99.0); Mean Platelet Volume 8.9 fL (9.5-13.5); Platelet Count 264 10^3/uL (150-450); Red Blood Count 4.98 10^6/uL (4.20-5.40); Red Cell Distribution Width 13.2 % (11.0-15.0); White Blood Count 5.7 10^3/uL (4.0-11.0)
[2024-09-28 15:56] LABS: Bilirubin Urine NEGATIVE (NEGATIVE); Blood Urine MODERATE (NEGATIVE); Clarity Urine SL CLOUDY (CLEAR); Color Urine LT. YELLOW (YELLOW); Glucose Urine UA NEGATIVE (NEGATIVE); Ketones Urine NEGATIVE (NEGATIVE); Leukocyte Esterase Urine SMALL (NEGATIVE); Nitrite Urine POSITIVE (NEGATIVE); Protein Urine 30 mg/dL (NEG/TRACE); pH Urine 6.5 (5.0-9.0)
[2024-09-28 15:57] LABS: Urine Microscopic Indicated YES
[2024-09-28 16:07] LABS: Bacteria Urine LARGE #/HPF (NONE SEEN); Cast Seen? NONE SEEN #/LPF (NONE SEEN); Crystals Seen? None Seen #/HPF (None Seen); Mucus Urine MODERATE (NONE SEEN); Squamous Epithelial Cell Urine FEW #/LPF (NONE/RARE); WBC Urine 50-75 #/HPF (NONE SEEN)
[2024-09-28 16:08] LABS: Urine Culture Indicated YES
[2024-09-28 16:15] LABS: Alanine Aminotransferase 65 U/L (14-59); Albumin Level 3.7 g/dL (3.4-5.0); Alkaline Phosphatase 111 U/L (46-116); Aspartate Amino Transferase 38 U/L (15-37); BUN Creatinine Ratio 11.2; Bilirubin Total 0.6 mg/dL (0.2-1.0); Carbon Dioxide 28.6 mmol/L (21.0-32.0); Chloride 106 mmol/L (98-107); Estimated GFR (African America >60 (>=60 mL/min/1.73m^2); Estimated GFR (Non-African Ame >60 (>=60 mL/min/1.73m^2); Globulin 3.8 g/dL; Glucose 89 mg/dL (74-106); Potassium 3.6 mmol/L (3.5-5.1); Sodium 143 mmol/L (136-145); Total Protein 7.5 g/dL (6.4-8.2)
[2024-09-28 16:19] LABS: Lymphocytes Absolute Manual 2.79 10^3/uL (1.20-3.80); Monocytes Absolute Manual 0.74 10^3/uL (0.30-0.80)
[2024-09-28 16:20] LABS: Basophils Abs Manual 0.05 10^3/uL (0.00-0.10)
[2024-09-28] MEDS: CEFTRIAXONE 1,000 MG in 0.9 % SODIUM CHLORIDE 50 ML 100 MG IV (16:33)
== END 2024-09-28 17:13 | disposition home or self-care (01) ==
PROVIDERS: Nurse Practitioner Family; Emergency Provider Emergency Medicine; PCP Family Medicine
DX: N39.0 Urinary tract infection, site not specified (principal); Z90.49 Acquired absence of other specified parts of digestive tract; Z87.442 Personal history of urinary calculi; Z90.710 Acquired absence of both cervix and uterus
CPT/HCPCS: 36415; 74176; 80053; 81001; 85007; 85027; 87086; 87186; 96365; 96375; 99285; J0696; J2270; J2405

== ENCOUNTER 2024-09-30 14:40 | Outpatient (RCR) | payer OTHER, SELFPAY ==
--- OUTSIDE RECORDS SUMMARY | 2024-09-30 15:09 | XMS_ITS | CCD ---
Author Organization [facility] CliniSyil Care Team Providers Care Machine Try Out Setter Name Role Phone Domingo Das MD Unavailable DANIEL SANTIAGO Attending Unavailable DOMINGO DAS Referring Unavailable Domingo Das Primary Care Physician LILLIAN ., DR LANE Primary Care Unavailable BERNIE ., DR TOLBRET Admitting Unavailable BERNIE ., DR TOLBERT Attending [...] HOY ., DR LANE Primary Care Unavailable EBRNIE ., DR TOLBERT Admitting Unavailable BERNIE ., DR TOLBERT Attending Unavailable BERINE ., DR TOLBERT Consulting Unavailable BALWINDER DUNAWAY [...] TOLBERT Consulting Unavailable Nona VILLA Attending Unavailable IVLLANona R Attending Unavailable VILLANona R Attending Unavailable VILLANona R Attending Unavailable CELIO VAN Attending Unavailable MD Domingo Das Primary Care Provider [phone] MD Arnulfo Aviles Admit Provider MD Arnulfo Aviles Attending Provider [phone] Domingo Das Primary Care Unavailable Arnulfo Aviles [...] 13, 2022 12:00am August 16, 2022 11:38am [place] (No Known Home Meds) (1 source) Start: 04-08-2024 [place] (No Kn own Home Meds) Active April [...] BID, # 30 tab(s), Refills(s) 3, Pharmacy: [facility]/pharmacy #[id number], 168, cm, 03/20/23 10:32:00 [...] 02-16-2023 Episodic Other aftercare (1 source) 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; Translations: [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] Onset: 02-18-2023 Episodic Other aftercare (1 source) 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 oral hypoglycemic drugs; Translations: [ASSISTED USE ORAL HYPOGLYCEMIC DX] Onset: 02-18-2023 Episodic [...] Performed By: #### L IPID, TSH3 wRFLX, [id number] #### [address] Cholesterol in LDL Calc [Mas s/Vol]Ordered By: Arnulfo Aviles on 04-09-2024 Cholesterol in LDL [Mass/Vol] 90 mg/dL 0-100 [facility] Comment on above: LDL ATP III CLASSIFI CATIONLDL less than 100 mg/dL OptimalLDL 100-129 mg/dL Near or above optimalLDL 130-159 mg/dL Borderline highLDL 160-189 mg/dL HighLDL greater than 189 mg/dL Very high Cholesterol in VLDL Calc [Ma ss/Vol]Ordered By: Arnulfo Aviles on 04-09-2024 Cholesterol in VLDL [Mass/Vol] 16 mg/dL [facility] ECG 12 lead ECGon 04-09-2024 ECG 12 lead ECG [facility] [address] [place] [address] Electrocardiograph Report Signed Patient: Diana Barriga MR#: [id number] 55 : 1990 Acct:[id number] Age/Sex: 33 / F ADM Date: 04/08/24 Loc: Room: 9E6502-1 Type: ADM IN Attending Dr: Arnulfo Aviles [...] No previous ECGs available Confirmed by [facility] ([id number] on 04/09/2024 3:21:42 PM Referred By: Electronically Signed By:NONA CHAWLA MD, FACC Transcribed By: MUS Signed By Lg Chawla MD 04/09/24 1521 Normal [facility] Physician [facility] Lipid Panelon 04-09-2024 LDL Cholesterol,Calculated 90 mg/dL Normal 0-100 [facility] Physician [facility] Comment on above: Result Comment: LDL ATP III CLASSIFICATION LDL less than 100 mg/dL Optimal LDL 100-129 mg/dL Near or above optimal LDL 130-159 mg/dL Borderline high LDL 160-189 mg/dL High LDL greater than 189 mg/dL Very high Performed By: #### L IPID, TSH3 wRFLX, [id number] #### [address] Triglyceride w/Reflex 82 mg/dL Normal 0-149 [facility] Comment on above: Result Comment: TRIG ATP III CLASSIFICATION TRIG less than 150 mg/dL Normal TRIG 150-199 mg/dL Borderline high TRIG 200-500 mg/dL High TRIG greater than 500 mg/dL Very high Standard traceable to the Center for Disease Conrtrol and Prevention (CDC) test method. Performed By: #### L IPID, TSH3 wRFLX, [id number] #### [place] [id number] [facility] VLDL CHOLESTEROL 16 mg/dL Normal [facility] Physician [facility] Comment on above: Performed By: #### L IPID, TSH3 wRFLX, [id number] #### [facility] [address] Serum or plasma high density lipoprotein (HDL) cholesterol measurementOrdered By: Arnulfo Aviles on 04-09-2024 Cholesterol in HDL [Mass/Vol] 44 mg/dL Normal 23-92 [facility] Comment on above: HDL CHOL ATP-III CLA SSIFICATION Cardiovascular RiskHDL > or equal to 60 mg/dL LOWHDL < 40 mg/dL HIGH Result Comment: HDL CHOL ATP-III CLASSIFICATION Cardiovascular Risk HDL > or equal to 60 mg/dL LOW HDL < 40 mg/dL HIGH Performed By: #### L IPID, TSH3 wRFLX, [id number] #### [facility] [address] [place] [address] Serum or plasma total choles terol/high density lipoprotein (HDL) cholesterol mass ratOrdered By: Arnulfo Aviles on 04-09-2024 Cholesterol.total/Chol esterol in HDL [Mass ratio] 3.4 {ratio} Normal <5.0 [facility] Comment on above: Performed By: #### L IPID, TSH3 wRFLX, [id number] #### [facility] [address] [place] [address] Thyroid Stim Hormone w/Rflxo n 04-09-2024 Thyroid Stim Hormone w/Rflx 2.01 u[iU]/mL Normal 0.45-5.33 [facility] Comment on above: Performed By: #### L IPID, TSH3 wRFLX, [id number] #### [facility] [address] [place] [address] Thyrotropin [Units/volume] i n Serum or PlasmaOrdered By: Arnulfo Aviles on 04-09-2024 TSH Qn 2.01 m[IU]/L 0.45-5.33 [facility] Triglyceride [Mass/volume] i n Serum or PlasmaOrdered By: Arnulfo Aviles on 04-09-2024 Triglyceride [Mass/Vol] 82 mg/dL 0-149 [facility] Comment on above: TRIG ATP III CLASSIF ICATIONTRIG less than 150 mg/dL NormalTRIG 150-199 mg/dL Borderline highTRIG 200-500 mg/dL High TRIG greater than 500 mg/dL Very highStandard traceable to the Center for Disease Conrtrol and Prevention (CDC) test method. Vitamin D 25 Hydroxy Totalon 04-09-2024 Vitamin D 25 Hydroxy Total 26.2 ng/mL Low 30-100 [facility] Comment on above: Result Comment: THA MIN D STATUS 25(OH)VITAMIN D RANGE (ng/mL) Deficient <20 Insufficient 20 to <30 Sufficient 30 to 100 Reference: Jennifer Tiwari, Mady MARTI, et al. Evaluation,treatment, and prevention of vitamin D deficiency; an Endocrine Society clinical practice guideline. JCEM. 2010; 96(7):1911-30. PERFORMED BY: [facility] [address] [place] [address] PATHOLOGIST MILL FEEDER AB ALCANTARA M.D. Performed By: #### L IPID, TSH3 wRFLX, [id number] #### [facility] [address] Vitamin D+Metabolites [Mass/ volume] in Serum or PlasmaOrdered By: Arnulfo Aviles on 04-09-2024 Vitamin D+Metabolites [Mass/Vol] 26.2 ng/mL 30-100 [facility] Comment on above: VITAMIN D STATUS 25( OH)VITAMIN D RANGE (ng/mL) Deficient <20 Insufficient 20 to <30Sufficient 30 to 100Reference: Jennifer Tiwari, Mady MARTI, et al. Evaluation,treatment, and prevention of vitamin D deficiency; an Endocrine Society clinical practice guideline. JCEM. 2010; 96(7):1911-30. Axel 12-29-2023 L Specimen: [id number] Received: 12/29/23 Status: DAQUAN Moon Num: [id number] Spec Type: Surgical Subm Dr: Glen Graff MD Tissues: A BREAST CORE NO CALCS (LT BREAST 6:00) Procedures: PAS - LGRN, HE/2, Gross/Micro L4, AE1-AE3, CD68 Age/ Patient Sex Location Account Attending Physician Diana Barriga 33/F [facility] [id number] Glen Graff MD SPEC NUM: [id number] RECD: 12/29/23 STATUS: DAQUAN NOLENDarvin NUM: [id number] KELBY: 12/29/23 DR: Glen Graff MD ENTERED: 12/29/[address] [facility] [address]: Miles Celeste Bernie SPEC TYPE: Surgical [...] AM 12/29/2023, time out of ---- Specimen: [id number] Received: 12/29/23 Status: DAQUAN Red Num: [id number] Spec Type: Surgical Subm Dr: Glen Graff MD Tissues: A BREAST CORE NO CALCS (LT BREAST 6:00) Procedures: PAS - ELLIS, HE/2, Gross/Micro L4, AE1-AE3, CD68 ---- Patient: Diana Barriga Boogie [id number] (Continued) ---- Specimen: [id number] Received: 12/29/23 (Continued) Gross Description (Continued) Signed (signature on file) Swathi Dumas MD 12/30/23 1834 ---- Specimen: [id number] Received: 12/29/23 Status: DAQUAN Moon Num: [id number] Spec Type: Surgical Subm Dr: Glen Graff MD Tissues: A BREAST CORE NO CALCS (LT BREAST 6:00) Procedures: PAS - ELLIS, HE/2, Gross/Micro L4, AE1-AE3, CD68 ---- Patient: Diana Barriga [id number] (Continued) ---- Specimen: [id number] Received: 12/29/23 (Continued) Gross Description (Continued) formalin: 6 PM 12/29/2023. Cold Ischemia and Fixation Time meets the requirements specified in the latest version of the ASCO/CAP guidelines: Yes. Cold Ischemic Time: 0.03 Formalin Fixation Time: 9.85 CPT Codes 32013 30944 46192 02130 ---- ---- Specimen: [id number] Received: 12/29/23 Status: DAQUAN Moon Num: [id number] Spec Type: Surgical Subm Dr: Glen Graff MD Tissues: A BREAST CORE NO CALCS (LT BREAST 6:00) Procedures: FIONA CORRAL, HE/2, Gross/Micro L4, AE1-AE3, CD68 ---- Patient: Diana Barriga [id number] (Continued) ---- Signed (signature on file) Swathi Dumas MD 12/30/23 183 Normal [facility] Patient Letter FTon 2023 Patient Letter [facility] December 04, 2023 D[address]NA [address]A [address] [place] [id number] : 1990 Dear Diana, You missed your [...] any future cancellations. Sincerely, [facility] [address], [place] [address] [facility] Lab Reportson 06-05-2023 Lab Reports [id number]#1.0 0CD:127 [facility] Reminderson 04-24-2023 Reminders - From: Whitney [...] the pt with the results. duplicate message [facility] Operative Reporton Operative Report [id number]#1.00 CD:127 [facility] RAD - MISCon 04-10-2023 RAD - MISC [id number]#1.0 0CD:127 [facility] Reportson 04-06-2023 Lab Reports [id number]#1.0 0CD:127 [facility] Lab Reports [id number]#1.0 0CD:127 [facility] Reportson 03-23-2023 Lab Reports [id number]#1.0 0CD:127 [facility] Lab Reports [id number]#1.0 0CD:127 [facility] Lab Reports [id number]#1.0 0CD:127 [facility] RAD - CT Reporton 03-23-2023 RAD - CT Report [id number]#1.0 0CD:127 Normal [facility] RAD - CT Report [id number]#1.0 0CD:127 Normal [facility] Ambulatory Visit Summaryon 0 03-20-2023 [...] Where: [facility] [address] [place] [address]- Medications What When Instructions Unchanged olanzapine-samidorphan (Lybalvi [...] ? 8 oz (237 mL) of milk, zxziawx-riwqukmxvfgh-t airy milk, and calcium-fortifiedfruit juice. Calcium-fortified means [...] handful of b (more content not included)... [facility] Consent for Procedure/Surger yon 03-20-2023 Consent for Procedure/Surgery [id number]#1.0 0CD:127 [facility] Patient Educationon 03-20-20 23 Patient Education [...] ? 8 oz (237 mL) of milk, divntjj-pucqboxgjzqp-b airy milk, and calcium-fortifiedfruit juice. Calcium-fortified means [...] Spinach (cooked), rhubarb, beets, sweet potatoes, and Solomon Islander chard. ? Peanuts. ? Potato chips, tunisian fries, and baked potatoes with skin on. ? Nuts and nut products. ? Chocolate. ? If you regularly take a diuretic medicine, make sure to eat at least 1 or 2 servings of fruits or vegetables that are high in potassium each day. These include: ? Avocado. ? Banana. ? [place], prune, carrot, or tomato juice. ? Baked [...] fish oil, or vitamin B6. ? Take igcj-lzb-tbhmhtn and prescription medicines only as told by your health care provider. These include supplements. What foods should I limit? Limit your in (more content not included)... Normal [facility] Urology Office/Clinic Noteon 03-20-2023 Urology [...] Lt kidney pain. Did got to the [place] ER. DX'd & treated for UTI. (NEG [...] L. Ox slightly elevated. Pt presented to [facility] ER on 03/06/23 due to L kidney [...] mg qd. SEs discussed. Rx sent to [facility]. -Electrolyte panel 4 weeks to the day [...] With When Contact Information Nona VILLA MD, [facility] [address] [place] [address]- Additional Instructions: schedule R ESWL Patient Education [...] (more content not included)... Normal [facility] Comment on above: Result Comment: Elec tronically Signed By: Nona VILLA MD\.br\Date and Time Signed: 03/20/23 11:30 EDT\.br\Electronically Co-Signed By: Whitney Collier\.br\Date and Time Co-Signed: 03/20/23 11:28 EDT CBC AUTO DIFFon 02-16-2023 BASO # 0.1 103/ul Normal 0.0-0.1 [facility] Comment on above: Performed By: #### U KJ 24 #### [facility] [address] [place] [address] [address] Ramses Dumas Basophils/100 WBC (Bld) 0.5 % Normal 0.2-2.0 [facility] Comment on above: Performed By: #### U KJ 24 #### [facility] [address] [place] [address] [address] Ramses Dumas EO # 0.0 103/ul Normal 0.0-0.7 [facility] Comment on above: Performed By: #### U KJ 24 #### [facility] [address] [address] [address] Ramses Dumas Eosinophils/100 WBC (Bld) 0.4 % Critically low 0.9-7.0 [facility] Comment on above: Performed By: #### U KJ 24 #### [facility] [address] [place] [address] Dr. aRmses Dumas Erythrocyte distribution width (RBC) [Ratio] 13.7 % Normal 11.0-15.0 [facility] Comment on above: Performed By: #### U KJ 24 #### [facility] [address] [place] [address] Dr. Ramses Dumas Hematocrit (Bld) [Volume fraction] 45.1 % Normal 36.0-48.0 [facility] Comment on above: Performed By: #### U KJ 24 #### [facility] [address] [place] [address] Dr. Ramses Dumas Hemoglobin (Bld) [Mass/Vol] 14.3 g/dL Normal 12.0-16.0 [facility] Comment on above: Performed By: #### U KJ 24 #### [facility] [address] [place] [address] Dr. Ramses Dumas IG # 0.02 10e3/ul Normal 0.00-0.03 [facility] Comment on above: Performed By: #### U KJ 24 #### [facility] [address] [place] [address] Dr. Ramses Dumas IG % 0.2 % Normal 0.0-0.5 [facility] Comment on above: Performed By: #### U KJ 24 #### [facility] [address] [place] [address] Dr. Ramses Dumas LYMPH # 2.5 103/ul Normal 1.2-3.8 [facility] Comment on above: Performed By: #### U KJ 24 #### [facility] [address] [place] [address] Dr. Ramses Dumas Lymphocytes/100 WBC (Bld) 26.4 % Normal 20.5-60.0 [facility] Comment on above: Performed By: #### U KJ 24 #### [facility] [address] [place] [address] Dr. Ramses Dumas MANUAL DIFF REQ NO Normal [facility] Comment on above: Performed By: #### U KJ 24 #### [facility] [address] [place] [address] Dr. Ramses Dumas MCH (RBC) [Entitic mass] 25.6 pg Critically low 26.7-34.0 [facility] Comment on above: Performed By: #### U KJ 24 #### [facility] [address] [place] [address] Dr. Ramses Dumas MCHC (RBC) [Mass/Vol] 31.7 g/dL Normal 29.9-35.2 [facility] Comment on above: Performed By: #### U KJ 24 #### [facility] [address] [place] [address] Dr. Ramses Dumas MCV (RBC) [Entitic vol] 80.7 fL Critically low 81.0-99.0 [facility] Comment on above: Performed By: #### U KJ 24 #### [facility] [address] [place] [address] Dr. Ramses Dumas MONO # 0.7 103/ul Normal 0.3-0.8 [facility] Comment on above: Performed By: #### U KJ 24 #### [facility] [address] [place] [address] Dr. Ramses Dumas Monocytes/100 WBC (Bld) 7.6 % Normal 1.7-12.0 [facility] Comment on above: Performed By: #### U KJ 24 #### [facility] [address] [place] [address] Dr. Ramses Dumas NEUT # 6.1 103/ul Normal 1.4-6.5 [facility] Comment on above: Performed By: #### U KJ 24 #### [facility] [address] [place] [address] Dr. Ramses Dumas Neutrophils/100 WBC (Bld) 64.9 % Normal 43.0-75.0 [facility] Comment on above: Performed By: #### U KJ 24 #### [facility] [address] [place] [address] Dr. Ramses Dumas Platelet mean volume (Bld) [Entitic vol] 11.0 fL Normal 9.5-13.5 [facility] Comment on above: Performed By: #### U KJ 24 #### [facility] [address] [address] [address] Ramses Dumas PLT 270 103/ul Normal 150-450 [facility] Comment on above: Performed By: #### U KJ 24 #### [facility] [address] [address] [address] Ramses Dumas RBC 5.59 106/ul Critically high 4.20-5.40 [facility] Comment on above: Performed By: #### U KJ 24 #### [facility] [address] [address] [address] Ramses Dumas WBC 9.4 103/ul Normal 4.0-11.0 [facility] Comment on above: Performed By: #### U KJ 24 #### [facility] [address] [place] [address] ABD/PELV W CONon [...] by: FARTUN NOVOA Date: 2023-02-16 18:21 Normal [facility] ER URINE PROFILEon 3 Bilirubin Ql (U) SMALL Abnormal NEGATIVE [facility] Comment on above: Performed By: #### C MP #### [facility] [address] [place] [address] Dr. Ramses Dumas Clarity (U) CLEAR Normal CLEAR [facility] Comment on above: Performed By: #### C MP #### [facility] [address] [place] [address] Dr. Ramses Dumas Color (U) YELLOW Normal YELLOW [facility] Comment on above: Performed By: #### C MP #### [facility] [address] [place] [address] Dr. Ramses DELEON A micrscopic examination will be performed if indicated. Normal [facility] Comment on above: Performed By: #### C MP #### [facility] [address] [place] [address] Dr. Ramses Dumas Glucose Ql (U) Negative Normal NEGATIVE [facility] Comment on above: Performed By: #### C MP #### [facility] [address] [place] [address] Dr. Ramses Dumas Hemoglobin Ql (U) Negative Normal NEGATIVE [facility] Comment on above: Performed By: #### C MP #### [facility] [address] [place] [address] Dr. Ramses Dumas Ketones Ql (U) 40 mg/dl Abnormal NEGATIVE [facility] Comment on above: Performed By: #### C MP #### [facility] [address] [place] [address] Dr. Ramses Dumas LEUKOCYTES SMALL Abnormal NEGATIVE [facility] Comment on above: Performed By: #### C MP #### [facility] [address] [place] [address] Dr. Ramses Dumas Nitrite Ql (U) Negative Normal NEGATIVE [facility] Comment on above: Performed By: #### C MP #### [facility] [address] [place] [address] Dr. Ramses Dumas pH (U) 7.0 [pH] Normal 5-9 [facility] Comment on above: Performed By: #### C MP #### [facility] [address] [place] [address] Dr. Ramses Dumas Protein (U) [Mass/Vol] 30 mg/dL Abnormal NEGAT CHRIS/ TRACE [facility] Comment on above: Performed By: #### C MP #### [facility] [address] [place] [address] Dr. Ramses Dumas SPEC GRAVITY 1.020 Normal 1.005-<=1.02 5 [facility] Comment on above: Performed By: #### C MP #### [facility] [address] [place] [address] Dr. Ramses Dumas UR MICRO IND INDICATED Normal [facility] Comment on above: Performed By: #### C MP #### [facility] [address] [place] [address] Dr. Ramses Dumas Urobilinogen Qn (U) 4 {Lucero'U}/dL Abnormal 0.2 - 1.0 [facility] Comment on above: Performed By: #### C MP #### [facility] [address] [place] [address] Dr. Ramses Dumas LIPASEon 02-16-2023 Lipase [Catalytic activity/Vol] 67.0 U/L Critically low 73.0-393.0 [facility] Comment on above: Performed By: #### U RCX #### [facility] [address] [place] [address] Dr. Ramses Dumas LIVER PROFILEon 02-16-2023 Albumin [Mass/Vol] 4.1 g/dL Normal 3.4-5.0 [facility] Comment on above: Performed By: #### U RCX #### [facility] [address] [address] [address] Ramses Dumas Albumin/Globulin [Mass ratio] 1.0 {ratio} Normal [facility] Comment on above: Performed By: #### U RCX #### [facility] [address] [address] [address] Ramses Dumas ALP [Catalytic activity/Vol] 85 U/L Normal 46-116 [facility] Comment on above: Performed By: #### U RCX #### [facility] [address] [address] [address] Ramses Dumas ALT [Catalytic activity/Vol] 61 U/L Critically high 14-59 [facility] Comment on above: Performed By: #### U RCX #### [facility] [address] [address] [address] Ramses Dumas AST [Catalytic activity/Vol] 43 U/L Critically high 15-37 [facility] Comment on above: Performed By: #### U RCX #### [facility] [address] [address] [address] Ramses Dumas BILI, CONJUGATED 0.1 mg/dL Normal 0.0-0.2 [facility] Comment on above: Performed By: #### U RCX #### [facility] [address] [address] [address] Ramses Dumas Bilirubin [Mass/Vol] 0.7 mg/dL Normal 0.2-1.0 [facility] Comment on above: Performed By: #### U RCX #### [facility] [address] [address] [address] Ramses Dumas Globulin (S) [Mass/Vol] 4.2 g/dL Normal [facility] Comment on above: Performed By: #### U RCX #### [facility] [address] [address] [address] Ramses Dumas Protein [Mass/Vol] 8.3 g/dL Critically high 6.4-8.2 [facility] Comment on above: Performed By: #### U RCX #### [facility] [address] [address] [address] Ramses Dumas URon 02-16-2023 , QUAL Negative Normal NEGATIVE [facility] Comment on above: Performed By: #### C MP #### [facility] [address] [address] [address] Ramses Dumas PROF CHEM 8 (BAS METB)on Anion gap [Moles/Vol] 14.2 mmol/L Normal [facility] Comment on above: Performed By: #### U RCX #### [facility] [address] [address] [address] Ramses Dumas Calcium [Mass/Vol] 9.5 mg/dL Normal 8.5-10.1 [facility] Comment on above: Performed By: #### U RCX #### [facility] [address] [address] [address] Ramses Dumas Chloride [Moles/Vol] 102 mmol/L Normal 98-107 [facility] Comment on above: Performed By: #### U RCX #### [facility] [address] [address] [address] Ramses Dumas CO2 [Moles/Vol] 27.5 mmol/L Normal 21.0-32.0 [facility] Comment on above: Performed By: #### U RCX #### [facility] [address] [address] [address] Ramses Dumas Creatinine [Mass/Vol] 0.71 mg/dL Normal 0.55-1.02 [facility] Comment on above: Performed By: #### U RCX #### [facility] [address] [address] [address] Ramses Dumas EGFR-AF SLOVAK >60 Normal >=60 [facility] Comment on above: Performed By: #### U RCX #### [facility] [address] [place] [address] Dr. Ramses Dumas EGFR-NON AF SLOVAK >60 Normal >=60 [facility] Comment on above: Performed By: #### U RCX #### [facility] Laboratory [address] [address] [address] Ramses Dumas Glucose [Mass/Vol] 90 mg/dL Normal 74-106 [facility] Comment on above: Performed By: #### U RCX #### [facility] [address] [address] [address] Ramses Dumas Potassium [Moles/Vol] 3.7 mmol/L Normal 3.5-5.1 [facility] Comment on above: Performed By: #### U RCX #### [facility] [address] [address] [address] Ramses Dumas Sodium [Moles/Vol] 140 mmol/L Normal 136-145 [facility] Comment on above: Performed By: #### U RCX #### [facility] [address] [place] [address] Dr. Ramses Dumas Urea nitrogen [Mass/Vol] 6.0 mg/dL Critically low 7.0-18.0 [facility] Comment on above: Performed By: #### U RCX #### [facility] [address] [place] [address] Dr. Ramses Dumas Urea nitrogen/Creatinine [Mass ratio] 8.5 mg/mg Normal [facility] Comment on above: Performed By: #### U RCX #### [facility] [address] [place] [address] Dr. Ramses Dumas URINE MICROSCOPIC ONLYon BACTERIA NONE SEEN Normal NONE SEEN [facility] Comment on above: Performed By: #### U KJ 24 #### [facility] [address] [place] [address] Dr. Ramses Dumas Bacteria identified Cx Nom (U) NOT INDICATED Normal [facility] Comment on above: Performed By: #### U KJ 24 #### [facility] [address] [place] [address] Dr. Ramses Dumas CAST NONE SEEN Normal NONE SEEN [facility] Comment on above: Performed By: #### U KJ 24 #### [facility] [address] [place] [address] Dr. Ramses Dumas Crystals LM Nom (Urine sed) NONE SEEN Normal NONE SEEN [facility] Comment on above: Performed By: #### U KJ 24 #### [facility] [address] [place] [address] Dr. Ramses Dumas Epithelial cells LM Ql (Urine sed) FEW Abnormal NONE SEEN /RARE [facility] Comment on above: Performed By: #### U KJ 24 #### [facility] [address] [place] [address] Dr. Ramses Dumas MUCOUS SMALL Abnormal NONE SEEN [facility] Comment on above: Performed By: #### U KJ 24 #### [facility] [address] [place] [address] Dr. Ramses Dumas RBC NONE SEEN Abnormal 0-2 [facility] Comment on above: Performed By: #### U KJ 24 #### [facility] [address] [place] [address] Dr. Ramses Dumas WBC 0-2 Abnormal NONE SEEN [facility] Comment on above: Performed By: #### U KJ 24 #### [facility] [address] [place] [address] Dr. Ramses Dumas PAP ACOG PANEL 2: 30 to 65on 02-10-2023 . . Normal [facility] Comment on above: Result Comment: Perf ormed at: WB Performed By: #### U RCX #### [facility] [address] [place] [address] Dr. Ramses Dumas Age Gdln ACOG Testing 30-65 Normal [facility] Comment on above: Performed By: #### U RCX #### [facility] [address] [place] [address] Dr. Ramses Dumas DIAGNOSIS: Comment Normal [facility] Comment on above: Result Comment: NEGA TIVE FOR INTRAEPITHELIAL LESION OR MALIGNANCY. REACTIVE CELLULAR CHANGES AND/OR REPAIR ARE PRESENT. Performed at: WB Performed By: #### U RCX #### [facility] [address] [place] [address] Dr. Ramses Dumas Electronically signed by: Comment Normal [facility] Comment on above: Result Comment: Chelsey Boston MD, Pathologist Performed at: WB Performed By: #### U RCX #### [facility] [address] [address] [address] Ramses Dumas HPV Aptima Negative Normal Negative [facility] Comment on above: Result Comment: This nucleic acid amplification test detects fourteen high-risk HPV types (16,18,31,33,35,39,45,51,52,56,58,59,66,68) without differentiation. Performed at: =G Performed By: #### U RCX #### [facility] [address] [address] [address] Ramses Dumas HPV Genotype Reflex Comment Normal [facility] Comment on above: Result Comment: Crit erli not met, HPV Genotype not performed. Performed at: WB Performed By: #### U RCX #### [facility] [address] [address] [address] Ramses Dumas Methodology: Comment Normal [facility] Comment on above: Result Comment: This liquid based ThinPrep(R) pap test was screened with the use of an image guided system. Performed at: WB Performed By: #### U RCX #### [facility] [address] [address] [address] Ramses Dumas Note: Comment Normal [facility] Comment on above: Result Comment: The [...] WB Performed By: #### U RCX #### [facility] [address] [address] [address] Ramses Dumas Performed by: Comment Normal [facility] Comment on above: Result Comment: Cuca Briceno, Dialysis Clinical Manager (ASCP) Performed at: WB Performed By: #### U RCX #### [facility] [address] [address] [address] Ramses Dumas Specimen adequacy: Comment Normal [facility] Comment on above: Result Comment: Sati sfactory for evaluation. Endocervical and/or squamous metaplastic cells (endocervical component) are present. Performed at: WB Performed By: #### U RCX #### [facility] [address] [place] [address] Dr. Ramses Dumas Lab Reportson 12-29-2022 Lab Reports [id number] 0CD:127 Normal [facility] RAD - MISCon 12-21-2022 RAD - MISC [id number] 0CD:127 Normal [facility] OXALATE 24HR URINEon 023 Oxalates, Urine 44 mg/L Normal Undefined [facility] Comment on above: Performed By: #### U KJ 24 #### [facility] [address] [place] [address] Dr. Ramses Dumas Oxalates, Urine 24hr 44 mg/24 hr Critically high 4-31 [facility] Comment on above: Performed By: #### U KJ 24 #### [facility] [address] [place] [address] Dr. Ramses Dumas CITRATE URINE 24HRon 023 Citric Acid, U, 24hr 658 mg/24 hr Normal 320-1240 [facility] Comment on above: Result Comment: This test was developed and its performance characteristics determined by [facility]. It has not been cleared or approved by the Food and Drug Administration. Performed By: #### C ITRATU #### [facility] [address] [place] [address] Dr. Ramses Dumas Citric Acid, Urine 658 mg/L Normal Undefined [facility] Comment on above: Performed By: #### C ITRATU #### [facility] [address] [place] [address] Dr. Ramses Dumas MAGNESIUM 24HR URINEon 12-17 Magnesium 24hr Urine 119.0 mg/24 hr Normal 12.0-293.0 [facility] Comment on above: Performed By: #### U RCX #### [facility] [address] [place] [address] Dr. Ramses Dumas Magnesium UR 11.9 mg/dL Normal Not Estab. [facility] Comment on above: Performed By: #### U RCX #### [facility] [address] [place] [address] Dr. Ramses Dumas PHOSPHORUS 24HR URINEon Phosphorus, Urine 81.4 mg/dL Normal Not Estab. [facility] Comment on above: Performed By: #### B LDCX2 #### [facility] [address] [place] [address] Dr. Ramses Dumas Phosphorus, Urine 24hr 814 mg/24 hr Normal 261-1078 [facility] Comment on above: Performed By: #### B LDCX2 #### [facility] [address] [place] [address] Dr. Ramses Dumas PTH INTACTon 12-17-2022 PTH, Intact 46 pg/mL Normal 15-65 [facility] Comment on above: Performed By: #### U RCX #### [facility] [address] [place] [address] Dr. Ramses Dumas URIC ACID 24 HR URINEon Uric Acid, Urine 69.9 mg/dL Normal Not Estab. The [facility] Comment on above: Performed By: #### U KJ 24 #### [facility] [address] [place] [address] Dr. Ramses Dumas Uric Acid, Urine 24hr 699.0 mg/24 hr Normal 173.7-902. 1 [facility] Comment on above: Performed By: #### U KJ 24 #### [facility] [address] [place] [address] Dr. Ramses Dumas BUNon 12-16-2022 Urea nitrogen [Mass/Vol] 7.0 mg/dL Normal 7.0-18.0 [facility] Comment on above: Performed By: #### C BC #### [facility] [address] [place] [address] Dr. Ramses Dumas CALCIUMon 12-16-2022 Calcium [Mass/Vol] 8.8 mg/dL Normal 8.5-10.1 [facility] Comment on above: Performed By: #### C BC #### [facility] [address] [place] [address] Dr. Ramses Dumas CALCIUM 24 HR URINEon 2022 CALC, 24 HR UR 295.0 mg/24 hr Normal 100.0-300.0 [facility] Comment on above: Performed By: #### B LDCX2 #### [facility] [address] [place] [address] Dr. Ramses Dumas UR CALCIUM 29.5 mg/dL Critically high 5.1-21.0 [facility] Comment on above: Performed By: #### B LDCX2 #### [facility] [address] [place] [address] Dr. Ramses Dumas CHLORIDEon 12-16-2022 Chloride [Moles/Vol] 105 mmol/L Normal 98-107 [facility] Comment on above: Performed By: #### C BC #### [facility] [address] [place] [address] Dr. Ramses Dumas CO2on 12-16-2022 CO2 [Moles/Vol] 26.4 mmol/L Normal 21.0-32.0 [facility] Comment on above: Performed By: #### C MP #### [facility] [address] [place] [address] Dr. Ramses Dumas CREA 24 HR URINEon 3 CREA, 24 HR UR 2337.30 mg/24 hr Critically high 800.00 -1,800 .00 [facility] Comment on above: Performed By: #### C VDTBH #### [facility] [address] [place] [address] Dr. Ramses Dumas URINE CREAT 233.73 mg/dL Normal 20.00-300.00 [facility] Comment on above: Performed By: #### C VDTBH #### [facility] [address] [place] [address] Dr. Ramses Dumas CREATININEon 12-16-2022 Creatinine [Mass/Vol] 0.70 mg/dL Normal 0.55-1.02 [facility] Comment on above: Performed By: #### C MP #### [facility] [address] [address] [address] Ramses Dumas EGFR-AF SLOVAK >60 Normal >=60 [facility] Comment on above: Performed By: #### C MP #### [facility] [address] [address] [address] Ramses Dumas EGFR-NON AF SLOVAK >60 Normal >=60 [facility] Comment on above: Performed By: #### C MP #### [facility] [address] [place] [address] Dr. Ramses Dumas NAon 12-16-2022 Sodium [Moles/Vol] 139 mmol/L Normal 136-145 [facility] Comment on above: Performed By: #### C MP #### [facility] [address] [place] [address] Dr. Ramses Dumas POTASSIUMon 12-16-2022 Potassium [Moles/Vol] 4.0 mmol/L Normal 3.5-5.1 [facility] Comment on above: Performed By: #### C MP #### [facility] [address] [place] [address] Dr. Ramses Dumas SODIUM 24 HR URINEon 023 NA, 24 HR UR 193 mmol/24 hr Normal 40-220 [facility] Comment on above: Performed By: #### C VDTBH #### [facility] [address] [place] [address] Dr. Ramses Dumas Sodium (U) [Moles/Vol] 193 mmol/L Critically high 30-90 [facility] Comment on above: Performed By: #### C VDTBH #### [facility] [address] [place] [address] Dr. Ramses Dumas UR TOT VOL 1000 ml/24 HR Normal [facility] Comment on above: Performed By: #### C VDTBH #### [facility] [address] [place] [address] Dr. Ramses Dumas Performed By: #### B LDCX2 #### [facility] [address] [place] [address] Dr. Ramses Dumas URIC ACID SERUMon 12-16-2022 Urate [Mass/Vol] 5.6 mg/dL Normal 2.6-6.0 [facility] Comment on above: Performed By: #### C MP #### [facility] [address] [place] [address] Dr. Ramses Dumas XR KUB 1 VIEWon [...] JENNIFER GATES Date: 2022-12-15 08:26 Normal [facility] CBC AUTO DIFFon 11-07-2022 BASO # 0.0 103/ul Normal 0.0-0.1 [facility] Comment on above: Performed By: #### U RCX #### [facility] [address] [place] [address] Dr. Ramses Dumas Basophils/100 WBC (Bld) 0.7 % Normal 0.2-2.0 [facility] Comment on above: Performed By: #### U RCX #### [facility] [address] [place] [address] Dr. Ramses Dumas EO # 0.1 103/ul Normal 0.0-0.7 [facility] Comment on above: Performed By: #### U RCX #### [facility] [address] [place] [address] Dr. Ramses Dumas Eosinophils/100 WBC (Bld) 1.9 % Normal 0.9-7.0 [facility] Comment on above: Performed By: #### U RCX #### [facility] [address] [place] [address] Dr. Ramses Dumas Erythrocyte distribution width (RBC) [Ratio] 13.6 % Normal 11.0-15.0 [facility] Comment on above: Performed By: #### U RCX #### [facility] [address] [place] [address] Dr. Ramses Dumas Hematocrit (Bld) [Volume fraction] 37.3 % Normal 36.0-48.0 [facility] Comment on above: Performed By: #### U RCX #### [facility] [address] [place] [address] Dr. Ramses Dumas Hemoglobin (Bld) [Mass/Vol] 12.2 g/dL Normal 12.0-16.0 [facility] Comment on above: Performed By: #### U RCX #### [facility] [address] [place] [address] Dr. Ramses Dumas IG # 0.02 10e3/ul Normal 0.00-0.03 [facility] Comment on above: Performed By: #### U RCX #### [facility] [address] [place] [address] Dr. Ramses Dumas IG % 0.3 % Normal 0.0-0.5 [facility] Comment on above: Performed By: #### U RCX #### [facility] [address] [place] [address] Dr. Ramses Dumas LYMPH # 2.3 103/ul Normal 1.2-3.8 [facility] Comment on above: Performed By: #### U RCX #### [facility] [address] [place] [address] Dr. Ramses Dumas Lymphocytes/100 WBC (Bld) 39.6 % Normal 20.5-60.0 [facility] Comment on above: Performed By: #### U RCX #### [facility] [address] [place] [address] Dr. Ramses Dumas MANUAL DIFF REQ NO Normal [facility] Comment on above: Performed By: #### U RCX #### [facility] [address] [place] [address] Dr. Ramses Dumas MCH (RBC) [Entitic mass] 26.4 pg Critically low 26.7-34.0 [facility] Comment on above: Performed By: #### U RCX #### [facility] [address] [place] [address] Dr. Ramses Dumas MCHC (RBC) [Mass/Vol] 32.7 g/dL Normal 29.9-35.2 [facility] Comment on above: Performed By: #### U RCX #### [facility] [address] [place] [address] Dr. Ramses Dumas MCV (RBC) [Entitic vol] 80.7 fL Critically low 81.0-99.0 [facility] Comment on above: Performed By: #### U RCX #### [facility] [address] [place] [address] Dr. Ramses Dumas MONO # 0.5 103/ul Normal 0.3-0.8 [facility] Comment on above: Performed By: #### U RCX #### [facility] [address] [place] [address] Dr. Ramses Dumas Monocytes/100 WBC (Bld) 8.0 % Normal 1.7-12.0 [facility] Comment on above: Performed By: #### U RCX #### [facility] [address] [place] [address] Dr. Ramses Dumas NEUT # 2.9 103/ul Normal 1.4-6.5 [facility] Comment on above: Performed By: #### U RCX #### [facility] [address] [place] [address] Dr. Ramses Dumas Neutrophils/100 WBC (Bld) 49.5 % Normal 43.0-75.0 [facility] Comment on above: Performed By: #### U RCX #### [facility] [address] [place] [address] Dr. Ramses Dumas Platelet mean volume (Bld) [Entitic vol] 9.0 fL Critically low 9.5-13.5 [facility] Comment on above: Performed By: #### U RCX #### [facility] [address] [place] [address] Dr. Ramses Dumas PLT 337 103/ul Normal 150-450 [facility] Comment on above: Performed By: #### U RCX #### [facility] [address] [place] [address] Dr. Ramses Dumas RBC 4.62 106/ul Normal 4.20-5.40 [facility] Comment on above: Performed By: #### U RCX #### [facility] [address] [place] [address] Dr. Ramses Dumas WBC 5.9 103/ul Normal 4.0-11.0 [facility] Comment on above: Performed By: #### U RCX #### [facility] [address] [place] [address] Dr. Ramses Dumas POINT OF CARE GLUCOSEon 10-20 Glucose [Mass/Vol] 115 mg/dL Critically high 74-106 [facility] Comment on above: Performed By: #### C VDTBH #### [facility] [address] [place] [address] Dr. Ramses Dumas PREG QUANT HCGon 11-07-2022 HCG QUANT <1 Normal [facility] Comment on above: Performed By: #### C VDTBH #### [facility] [address] [place] [address] Dr. Ramses Dumas HCG RANGE SEE BELOW Normal [facility] Comment on above: Result Comment: 5-50 0.2-1 WEEK 50-500 1-2 WEEKS 100-5,000 2-3 WEEKS 500-10,000 3-4 WEEKS 1,000-50,000 4-5 WEEKS 10,000-100,000 5-6 WEEKS 15,000-200,000 6-8 WEEKS 10,000-100,000 2-3 MONTHS Performed By: #### C VDTBH #### [facility] [address] [place] [address] Dr. Ramses Dumas US PELVIS AND TRANSVAGon [...] cm right ovarian simple cyst Normal [facility] CBC AUTO DIFFon 11-03-2022 BASO # 0.1 103/ul Normal 0.0-0.1 [facility] Comment on above: Performed By: #### U RCX #### [facility] [address] [place] [address] Dr. Ramses Dumas Basophils/100 WBC (Bld) 0.8 % Normal 0.2-2.0 [facility] Comment on above: Performed By: #### U RCX #### [facility] [address] [place] [address] Dr. Ramses Dumas EO # 0.1 103/ul Normal 0.0-0.7 [facility] Comment on above: Performed By: #### U RCX #### [facility] [address] [place] [address] Dr. Ramses Dumas Eosinophils/100 WBC (Bld) 1.4 % Normal 0.9-7.0 [facility] Comment on above: Performed By: #### U RCX #### [facility] [address] [place] [address] Dr. Ramses Dumas Erythrocyte distribution width (RBC) [Ratio] 13.4 % Normal 11.0-15.0 [facility] Comment on above: Performed By: #### U RCX #### [facility] [address] [place] [address] Dr. Ramses Dumas Hematocrit (Bld) [Volume fraction] 38.8 % Normal 36.0-48.0 [facility] Comment on above: Performed By: #### U RCX #### [facility] [address] [address] [address] Ramses Dumas Hemoglobin (Bld) [Mass/Vol] 12.7 g/dL Normal 12.0-16.0 [facility] Comment on above: Performed By: #### U RCX #### [facility] [address] [address] [address] Ramses Dumas IG # 0.01 10e3/ul Normal 0.00-0.03 [facility] Comment on above: Performed By: #### U RCX #### [facility] [address] [place] [address] Dr. Ramses Dumas IG % 0.1 % Normal 0.0-0.5 [facility] Comment on above: Performed By: #### U RCX #### [facility] [address] [address] [address] Ramses Dumas LYMPH # 1.9 103/ul Normal 1.2-3.8 [facility] Comment on above: Performed By: #### U RCX #### [facility] [address] [place] [address] Dr. Ramses Dumas Lymphocytes/100 WBC (Bld) 26.4 % Normal 20.5-60.0 [facility] Comment on above: Performed By: #### U RCX #### [facility] [address] [address] [address] Ramses Dumas MANUAL DIFF REQ NO Normal [facility] Comment on above: Performed By: #### U RCX #### [facility] [address] [address] [address] Ramses Dumas MCH (RBC) [Entitic mass] 26.3 pg Critically low 26.7-34.0 [facility] Comment on above: Performed By: #### U RCX #### [facility] [address] [place] [address] Dr. Ramses Dumas MCHC (RBC) [Mass/Vol] 32.7 g/dL Normal 29.9-35.2 [facility] Comment on above: Performed By: #### U RCX #### [facility] [address] [place] [address] Dr. Ramses Dumas MCV (RBC) [Entitic vol] 80.5 fL Critically low 81.0-99.0 [facility] Comment on above: Performed By: #### U RCX #### [facility] [address] [place] [address] Dr. Ramses Dumas MONO # 0.6 103/ul Normal 0.3-0.8 [facility] Comment on above: Performed By: #### U RCX #### [facility] [address] [place] [address] Dr. Ramses Dumas Monocytes/100 WBC (Bld) 8.2 % Normal 1.7-12.0 [facility] Comment on above: Performed By: #### U RCX #### [facility] [address] [place] [address] Dr. Ramses Dumas NEUT # 4.5 103/ul Normal 1.4-6.5 [facility] Comment on above: Performed By: #### U RCX #### [facility] [address] [place] [address] Dr. Ramses Dumas Neutrophils/100 WBC (Bld) 63.1 % Normal 43.0-75.0 [facility] Comment on above: Performed By: #### U RCX #### [facility] [address] [place] [address] Dr. Ramses Dumas Platelet mean volume (Bld) [Entitic vol] 8.9 fL Critically low 9.5-13.5 [facility] Comment on above: Performed By: #### U RCX #### [facility] [address] [place] [address] Dr. Ramses Dumas PLT 340 103/ul Normal 150-450 [facility] Comment on above: Performed By: #### U RCX #### [facility] [address] [place] [address] Dr. Ramses Dumas RBC 4.82 106/ul Normal 4.20-5.40 [facility] Comment on above: Performed By: #### U RCX #### [facility] [address] [place] [address] Dr. Ramses Dumas WBC 7.1 103/ul Normal 4.0-11.0 [facility] Comment on above: Performed By: #### U RCX #### [facility] [address] [place] [address] Dr. Ramses Dumas Covid-19 PCR ([employer]on 10-19 SARS-CoV-2 (COVID-19) RNA FRANCESCA+probe Ql (Unsp spec) Not detected Normal NOT DETECTED [facility] Comment on above: Result Comment: This test is not yet approved or cleared by the [place] FDA. When there are no FDA-approved or cleared tests available, and other criteria are met, FDA can make tests available under an emergency access mechanism called an Emergency Use Authorization (EUA). The EUA for this test is supported by the [place] of Health and Human Service's (HHS's) declaration [...] SARS-CoV-2. Performed By: #### U RCX #### [facility] [address] [place] [address] Dr. Ramses Dumas FREE T4on 11-03-2022 Free T4 [Mass/Vol] 0.99 ng/dL Normal 0.76-1.46 [facility] Comment on above: Performed By: #### B LDCX2 #### [facility] [address] [place] [address] Dr. Ramses Dumas GLYCOHEMOGLOBIN A1Con 2022 ADA RECOMMENDATION SEE BELOW Normal [facility] Comment on above: Result Comment: ADA RECOMMENDED LIMIT 4.0 - 6.0 ADA THERAPEUTIC TARGET < 7.0 ACTION SUGGESTED > 7.0 Performed By: #### C VDTBH #### [facility] [address] [place] [address] Dr. Ramses Dumas Glucose [Mass/Vol] 117 mg/dL Normal [facility] Comment on above: Performed By: #### C VDTBH #### [facility] [address] [place] [address] Dr. Ramses Dumas HbA1c (Bld) [Mass fraction] 5.7 % Normal 4.5-6.2 [facility] Comment on above: Performed By: #### C VDTBH #### [facility] [address] [place] [address] Dr. Ramses Dumas PROTIMEon 11-03-2022 INR Coag (PPP) [Relative time] 0.97 {INR} Normal [facility] Comment on above: Performed By: #### U KJ 24 #### [facility] [address] [place] [address] Dr. Ramses Dumas INR GUIDELINES SEE BELOW Normal [facility] Comment on above: Result Comment: TOÑA RED INR: 2.0 - 3.0 CONDITIONS NOT LISTED BELOW 2.5 - 3.5 FOR PROSTHETIC HEART VALVE REPLACEMENT 2.5 - 3.5 RECURRENT THROMBOSIS Performed By: #### U KJ 24 #### [facility] [address] [place] [address] Dr. Ramses Dumas PT Coag (PPP) [Time] 10.3 s Normal 9.0-11.6 [facility] Comment on above: Performed By: #### U KJ 24 #### [facility] [address] [place] [address] Dr. Ramses Dumas PTTon 11-03-2022 aPTT Coag (Bld) [Time] 27.7 s Normal 22.3-36.2 [facility] Comment on above: Performed By: #### U KJ 24 #### [facility] [address] [place] [address] Dr. Ramses Dumas TSHon 11-03-2022 TSH 0.667 uIU/mL Normal 0.358-3.740 The [facility] Comment on above: Performed By: #### C VDTBH #### [facility] [address] [address] [address] Ramses Dumas PREG HCG QUALon 09-18-2022 , QUAL Negative Normal NEGATIVE [facility] Comment on above: Performed By: #### U KJ 24 #### [facility] [address] [address] [address] Ramses Dumas Covid-19 PCR ([facility])on 08-20 SARS-CoV-2 (COVID-19) RNA FRANCESCA+probe Ql (Unsp spec) Not detected Normal NOT DETECTED [facility] Comment on above: Result Comment: This test is not yet approved or cleared by the [place] FDA. When there are no FDA-approved or cleared tests available, and other criteria are met, FDA can make tests available under an emergency access mechanism called an Emergency Use Authorization (EUA). The EUA for this test is supported by the [place] of Health and Human Service's (HHS's) declaration [...] SARS-CoV-2. Performed By: #### C VDTBH #### [facility] [address] [address] [address] Ramses Dumas CBC AUTO DIFFon 09-05-2022 BASO # 0.1 103/ul Normal 0.0-0.1 [facility] Comment on above: Performed By: #### B LDCX2 #### [facility] [address] [address] [address] Ramses Dumas Basophils/100 WBC (Bld) 0.7 % Normal 0.2-2.0 [facility] Comment on above: Performed By: #### B LDCX2 #### [facility] [address] [place] [address] Dr. Ramses Dumas EO # 0.2 103/ul Normal 0.0-0.7 [facility] Comment on above: Performed By: #### B LDCX2 #### [facility] [address] [place] [address] Dr. Ramses Dumas Eosinophils/100 WBC (Bld) 2.2 % Normal 0.9-7.0 [facility] Comment on above: Performed By: #### B LDCX2 #### [facility] [address] [place] [address] Dr. Ramses Dumas Erythrocyte distribution width (RBC) [Ratio] 13.9 % Normal 11.0-15.0 [facility] Comment on above: Performed By: #### B LDCX2 #### [facility] [address] [place] [address] Dr. Ramses Dumas Hematocrit (Bld) [Volume fraction] 38.8 % Normal 36.0-48.0 [facility] Comment on above: Performed By: #### B LDCX2 #### [facility] [address] [place] [address] Dr. Ramses Dumas Hemoglobin (Bld) [Mass/Vol] 12.6 g/dL Normal 12.0-16.0 [facility] Comment on above: Performed By: #### B LDCX2 #### [facility] [address] [place] [address] Dr. Ramses Dumas IG # 0.03 10e3/ul Normal 0.00-0.03 [facility] Comment on above: Performed By: #### B LDCX2 #### [facility] [address] [place] [address] Dr. Ramses Dumas IG % 0.3 % Normal 0.0-0.5 [facility] Comment on above: Performed By: #### B LDCX2 #### [facility] [address] [place] [address] Dr. Ramses Dumas LYMPH # 2.3 103/ul Normal 1.2-3.8 [facility] Comment on above: Performed By: #### B LDCX2 #### [facility] [address] [place] [address] Dr. Ramses Dumas Lymphocytes/100 WBC (Bld) 21.3 % Normal 20.5-60.0 [facility] Comment on above: Performed By: #### B LDCX2 #### [facility] [address] [place] [address] Dr. Ramses Dumas MANUAL DIFF REQ NO Normal [facility] Comment on above: Performed By: #### B LDCX2 #### [facility] [address] [place] [address] Dr. Ramses Dumas MCH (RBC) [Entitic mass] 26.4 pg Critically low 26.7-34.0 [facility] Comment on above: Performed By: #### B LDCX2 #### [facility] [address] [place] [address] Dr. Ramses Dumas MCHC (RBC) [Mass/Vol] 32.5 g/dL Normal 29.9-35.2 [facility] Comment on above: Performed By: #### B LDCX2 #### [facility] [address] [place] [address] Dr. Ramses Dumas MCV (RBC) [Entitic vol] 81.2 fL Normal 81.0-99.0 [facility] Comment on above: Performed By: #### B LDCX2 #### [facility] [address] [place] [address] Dr. Ramses Dumas MONO # 0.8 103/ul Normal 0.3-0.8 [facility] Comment on above: Performed By: #### B LDCX2 #### [facility] [address] [place] [address] Dr. Ramses Dumas Monocytes/100 WBC (Bld) 7.4 % Normal 1.7-12.0 [facility] Comment on above: Performed By: #### B LDCX2 #### [facility] [address] [address] [address] Ramses Dumas NEUT # 7.3 103/ul Critically high 1.4-6.5 [facility] Comment on above: Performed By: #### B LDCX2 #### [facility] [address] [place] [address] Dr. Ramses Dumas Neutrophils/100 WBC (Bld) 68.1 % Normal 43.0-75.0 [facility] Comment on above: Performed By: #### B LDCX2 #### [facility] [address] [place] [address] Dr. Ramses Dumas Platelet mean volume (Bld) [Entitic vol] 8.8 fL Critically low 9.5-13.5 [facility] Comment on above: Performed By: #### B LDCX2 #### [facility] [address] [place] [address] Dr. Ramses Dumas PLT 323 103/ul Normal 150-450 [facility] Comment on above: Performed By: #### B LDCX2 #### [facility] [address] [place] [address] Dr. Ramses Dumas RBC 4.78 106/ul Normal 4.20-5.40 [facility] Comment on above: Performed By: #### B LDCX2 #### [facility] [address] [place] [address] Dr. Ramses Dumas WBC 10.7 103/ul Normal 4.0-11.0 [facility] Comment on above: Performed By: #### B LDCX2 #### [facility] [address] [place] [address] Dr. Ramses Dumas CULTURE URINEon 09-05-2022 CULTURE URINE Culture Observations : LIGHT GROWTH OF MIXED GENITAL DAIANA. NO POTENTIAL PATHOGENS SEEN. Normal [facility] Comment on above: Performed By: #### U RCX #### [facility] [address] [place] [address] Dr. Ramses Dumas ER URINE PROFILEon Bilirubin Ql (U) Negative Normal NEGATIVE [facility] Comment on above: Performed By: #### B LDCX2 #### [facility] [address] [place] [address] Dr. Ramses Dumas Clarity (U) CLOUDY Abnormal CLEAR [facility] Comment on above: Performed By: #### B LDCX2 #### [facility] [address] [place] [address] Dr. Ramses Dumas Color (U) YELLOW Normal YELLOW [facility] Comment on above: Performed By: #### B LDCX2 #### [facility] [address] [place] [address] Dr. Ramses Dumas ERUAHWalter A micrscopic examination will be performed if indicated. Normal [facility] Comment on above: Performed By: #### B LDCX2 #### [facility] [address] [place] [address] Dr. Ramses Dumas Glucose Ql (U) Negative Normal NEGATIVE [facility] Comment on above: Performed By: #### B LDCX2 #### [facility] [address] [place] [address] Dr. Ramses Dumas Hemoglobin Ql (U) LARGE Abnormal NEGATIVE [facility] Comment on above: Performed By: #### B LDCX2 #### [facility] [address] [place] [address] Dr. Ramses Dumas Ketones Ql (U) Negative Normal NEGATIVE [facility] Comment on above: Performed By: #### B LDCX2 #### [facility] [address] [place] [address] Dr. Ramses Dumas LEUKOCYTES SMALL Abnormal NEGATIVE [facility] Comment on above: Performed By: #### B LDCX2 #### [facility] [address] [place] [address] Dr. Ramses Dumas Nitrite Ql (U) Negative Normal NEGATIVE [facility] Comment on above: Performed By: #### B LDCX2 #### [facility] [address] [place] [address] Dr. Ramses Dumas pH (U) 6.0 [pH] Normal 5-9 [facility] Comment on above: Performed By: #### B LDCX2 #### [facility] [address] [place] [address] Dr. Ramses Dumas Protein (U) [Mass/Vol] 100 mg/dL Abnormal NEGAT CHRIS/ TRACE [facility] Comment on above: Performed By: #### B LDCX2 #### [facility] [address] [place] [address] Dr. Ramses Dumas SPEC GRAVITY >=1.030 Abnormal 1.005-<=1.02 5 [facility] Comment on above: Performed By: #### B LDCX2 #### [facility] [address] [address] [address] Ramses Dumas UR MICRO IND INDICATED Normal [facility] Comment on above: Performed By: #### B LDCX2 #### [facility] [address] [place] [address] Dr. Ramses Dumas Urobilinogen Qn (U) 0.2 {Lucero'U}/dL Normal 0.2 - 1. 0 [facility] Comment on above: Performed By: #### B LDCX2 #### [facility] [address] [place] [address] Dr. Ramses Dumas URon 09-05-2022 , QUAL Negative Normal NEGATIVE [facility] Comment on above: Performed By: #### B LDCX2 #### [facility] [address] [place] [address] Dr. Ramses Dumas PROF CHEM 8 (BAS METB)on Anion gap [Moles/Vol] 11.7 mmol/L Normal [facility] Comment on above: Performed By: #### C MP #### [facility] [address] [place] [address] Dr. Ramses Dumas Calcium [Mass/Vol] 9.1 mg/dL Normal 8.5-10.1 [facility] Comment on above: Performed By: #### C MP #### [facility] [address] [place] [address] Dr. Ramses Dumas Chloride [Moles/Vol] 103 mmol/L Normal 98-107 [facility] Comment on above: Performed By: #### C MP #### [facility] [address] [address] [address] Ramses Dumas CO2 [Moles/Vol] 25.9 mmol/L Normal 21.0-32.0 [facility] Comment on above: Performed By: #### C MP #### [facility] [address] [address] [address] Ramses Dumas Creatinine [Mass/Vol] 0.77 mg/dL Normal 0.55-1.02 [facility] Comment on above: Performed By: #### C MP #### [facility] [address] [address] [address] Ramses Dumas EGFR-AF SLOVAK >60 Normal >=60 [facility] Comment on above: Performed By: #### C MP #### [facility] [address] [place] [address] Dr. Ramses Dumas EGFR-NON AF [place] >60 Normal >=60 [facility] Comment on above: Performed By: #### C MP #### [facility] [address] [address] [address] Ramses Dumas Glucose [Mass/Vol] 124 mg/dL Critically high 74-106 [facility] Comment on above: Performed By: #### C MP #### [facility] [address] [address] [address] Ramses Dumas Potassium [Moles/Vol] 3.6 mmol/L Normal 3.5-5.1 [facility] Comment on above: Performed By: #### C MP #### [facility] [address] [address] [address] Ramses Dumas Sodium [Moles/Vol] 137 mmol/L Normal 136-145 [facility] Comment on above: Performed By: #### C MP #### [facility] [address] [place] [address] Dr. Ramses Dumas Urea nitrogen [Mass/Vol] 12.0 mg/dL Normal 7.0-18.0 [facility] Comment on above: Performed By: #### C MP #### [facility] [address] [address] [address] Ramses Dumas Urea nitrogen/Creatinine [Mass ratio] 15.6 mg/mg Normal [facility] Comment on above: Performed By: #### C MP #### [facility] [address] [place] [address] Dr. Ramses Dumas URINE MICROSCOPIC ONLYon AMORPHOUS CRYSTALS RARE Normal [facility] Comment on above: Performed By: #### B LDCX2 #### [facility] [address] [place] [address] Dr. Ramses Dumas BACTERIA TRACE Abnormal NONE SEEN [facility] Comment on above: Performed By: #### B LDCX2 #### [facility] [address] [place] [address] Dr. Ramses Dumas Bacteria identified Cx Nom (U) INDICATED Normal [facility] Comment on above: Performed By: #### B LDCX2 #### [facility] [address] [place] [address] Dr. Ramses Dumas CA OX CRYSTALS RARE Normal [facility] Comment on above: Performed By: #### B LDCX2 #### [facility] [address] [place] [address] Dr. Ramses Dumas CAST NONE SEEN Normal NONE SEEN [facility] Comment on above: Performed By: #### B LDCX2 #### [facility] [address] [place] [address] Dr. Ramses Dumas Crystals LM Nom (Urine sed) SEEN Abnormal NONE SEEN [facility] Comment on above: Performed By: #### B LDCX2 #### [facility] [address] [place] [address] Dr. Ramses Dumas Epithelial cells LM Ql (Urine sed) FEW Abnormal NONE SEEN /RARE [facility] Comment on above: Performed By: #### B LDCX2 #### [facility] [address] [place] [address] Dr. Ramses Dumas MUCOUS TRACE Abnormal NONE SEEN [facility] Comment on above: Performed By: #### B LDCX2 #### [facility] [address] [place] [address] Dr. Ramses Dumas RBC 50-75 Abnormal 0-2 [facility] Comment on above: Performed By: #### B LDCX2 #### [facility] [address] [address] [address] Ramses Dumas WBC 20-50 Abnormal NONE SEEN [facility] Comment on above: Performed By: #### B LDCX2 #### [facility] [address] [address] [address] Ramses Dumas YEAST PRESENT Abnormal NONE SEEN [facility] Comment on above: Performed By: #### B LDCX2 #### [facility] [address] [place] [address] Dr. Ramses Dumas US KIDNEYSon 09-05-2022 US [...] GLEN GRAFF Date: 2022-09-05 11:00 Normal [facility] CT ABD/PELVIS WO CONon 08-29 CT [...] ERICKA IGLESIAS Date: 2022-08-29 01:10 Normal [facility] CULTURE URINEon 08-29-2022 CULTURE URINE Culture Observations : LIGHT GROWTH OF MIXED GENITAL DAIANA. NO POTENTIAL PATHOGENS SEEN. Normal [facility] Comment on above: Performed By: #### U RCX #### [facility] [address] [place] [address] Dr. Ramses Dumas CBC AUTO DIFFon 08-28-2022 BASO # 0.1 103/ul Normal 0.0-0.1 [facility] Comment on above: Performed By: #### U RCX #### [facility] [address] [place] [address] Dr. Ramses Dumas Basophils/100 WBC (Bld) 0.5 % Normal 0.2-2.0 [facility] Comment on above: Performed By: #### U RCX #### [facility] [address] [place] [address] Dr. Ramses Dumas EO # 0.3 103/ul Normal 0.0-0.7 [facility] Comment on above: Performed By: #### U RCX #### [facility] [address] [place] [address] Dr. Ramses Dumas Eosinophils/100 WBC (Bld) 2.3 % Normal 0.9-7.0 [facility] Comment on above: Performed By: #### U RCX #### [facility] [address] [place] [address] Dr. Ramses Dumas Erythrocyte distribution width (RBC) [Ratio] 13.7 % Normal 11.0-15.0 [facility] Comment on above: Performed By: #### U RCX #### [facility] [address] [place] [address] Dr. Ramses Dumas Hematocrit (Bld) [Volume fraction] 36.7 % Normal 36.0-48.0 [facility] Comment on above: Performed By: #### U RCX #### [facility] [address] [place] [address] Dr. Ramses Dumas Hemoglobin (Bld) [Mass/Vol] 12.3 g/dL Normal 12.0-16.0 [facility] Comment on above: Performed By: #### U RCX #### [facility] [address] [place] [address] Dr. Ramses Dumas IG # 0.16 10e3/ul Critically high 0.00-0.03 [facility] Comment on above: Performed By: #### U RCX #### [facility] [address] [place] [address] Dr. Ramses Dumas IG % 1.1 % Critically high 0.0-0.5 [facility] Comment on above: Performed By: #### U RCX #### [facility] [address] [place] [address] Dr. Ramses Dumas LYMPH # 4.6 103/ul Critically high 1.2-3.8 [facility] Comment on above: Performed By: #### U RCX #### [facility] [address] [place] [address] Dr. Ramses Dumas Lymphocytes/100 WBC (Bld) 31.8 % Normal 20.5-60.0 [facility] Comment on above: Performed By: #### U RCX #### [facility] [address] [place] [address] Dr. Ramses Dumas MANUAL DIFF REQ NO Normal [facility] Comment on above: Performed By: #### U RCX #### [facility] [address] [place] [address] Dr. Ramses Dumas MCH (RBC) [Entitic mass] 26.9 pg Normal 26.7-34.0 [facility] Comment on above: Performed By: #### U RCX #### [facility] [address] [place] [address] Dr. Ramses Dumas MCHC (RBC) [Mass/Vol] 33.5 g/dL Normal 29.9-35.2 [facility] Comment on above: Performed By: #### U RCX #### [facility] [address] [place] [address] Dr. Ramses Dumas MCV (RBC) [Entitic vol] 80.3 fL Critically low 81.0-99.0 [facility] Comment on above: Performed By: #### U RCX #### [facility] [address] [place] [address] Dr. Ramses Dumas MONO # 1.0 103/ul Critically high 0.3-0.8 [facility] Comment on above: Performed By: #### U RCX #### [facility] [address] [place] [address] Dr. Ramses Dumas Monocytes/100 WBC (Bld) 7.0 % Normal 1.7-12.0 [facility] Comment on above: Performed By: #### U RCX #### [facility] [address] [place] [address] Dr. Ramses Dumas NEUT # 8.2 103/ul Critically high 1.4-6.5 [facility] Comment on above: Performed By: #### U RCX #### [facility] [address] [place] [address] Dr. Ramses Dumas Neutrophils/100 WBC (Bld) 57.3 % Normal 43.0-75.0 [facility] Comment on above: Performed By: #### U RCX #### [facility] [address] [place] [address] Dr. Ramses Dumas Platelet mean volume (Bld) [Entitic vol] 8.6 fL Critically low 9.5-13.5 [facility] Comment on above: Performed By: #### U RCX #### [facility] [address] [place] [address] Dr. Ramses Dumas PLT 395 103/ul Normal 150-450 [facility] Comment on above: Performed By: #### U RCX #### [facility] [address] [place] [address] Dr. Ramses Dumas RBC 4.57 106/ul Normal 4.20-5.40 [facility] Comment on above: Performed By: #### U RCX #### [facility] [address] [place] [address] Dr. Ramses Dumas WBC 14.3 103/ul Critically high 4.0-11.0 [facility] Comment on above: Performed By: #### U RCX #### [facility] [address] [place] [address] Dr. Ramses Dmuas ER URINE PROFILEon 2 Bilirubin Ql (U) Negative Normal NEGATIVE [facility] Comment on above: Performed By: #### U KJ 24 #### [facility] [address] [place] [address] Dr. Ramses Dumas Clarity (U) CLEAR Normal CLEAR [facility] Comment on above: Performed By: #### U KJ 24 #### [facility] [address] [place] [address] Dr. Ramses Dumas Color (U) LT. YELLOW Normal YELLOW [facility] Comment on above: Performed By: #### U KJ 24 #### [facility] [address] [place] [address] Dr. Ramses Dumas ERUAHD A micrscopic examination will be performed if indicated. Normal [facility] Comment on above: Performed By: #### U KJ 24 #### [facility] [address] [place] [address] Dr. Ramses Dumas Glucose Ql (U) Negative Normal NEGATIVE [facility] Comment on above: Performed By: #### U KJ 24 #### [facility] [address] [place] [address] Dr. Ramses Dumas Hemoglobin Ql (U) LARGE Abnormal NEGATIVE [facility] Comment on above: Performed By: #### U KJ 24 #### [facility] [address] [place] [address] Dr. Ramses Dumas Ketones Ql (U) Negative Normal NEGATIVE [facility] Comment on above: Performed By: #### U KJ 24 #### [facility] [address] [place] [address] Dr. Ramses Dumas LEUKOCYTES MODERATE Abnormal NEGATIVE [facility] Comment on above: Performed By: #### U KJ 24 #### [facility] [address] [place] [address] Dr. Ramses Dumas Nitrite Ql (U) Negative Normal NEGATIVE [facility] Comment on above: Performed By: #### U KJ 24 #### [facility] [address] [place] [address] Dr. Ramses Dumas pH (U) 6.5 [pH] Normal 5-9 [facility] Comment on above: Performed By: #### U KJ 24 #### [facility] [address] [place] [address] Dr. Ramses Dumas Protein (U) [Mass/Vol] 100 mg/dL Abnormal NEGAT CHRIS/ TRACE [facility] Comment on above: Performed By: #### U KJ 24 #### [facility] [address] [place] [address] Dr. Ramses Dumas SPEC GRAVITY 1.020 Normal 1.005-<=1.[address] [place] [address] Comment on above: Performed By: #### U KJ 24 #### [facility] [address] [place] [address] Dr. Ramses Dumas UR MICRO IND INDICATED Normal [facility] Comment on above: Performed By: #### U KJ 24 #### [facility] [address] [place] [address] Dr. Ramses Dumas Urobilinogen Qn (U) 0.2 {Lucero'U}/dL Normal 0.2 - 1. 0 [facility] Comment on above: Performed By: #### U KJ 24 #### [facility] [address] [address] [address] Ramses Dumas PROF 14(COMP METB)on 022 Albumin [Mass/Vol] 3.3 g/dL Critically low 3.4-5.0 [facility] Comment on above: Performed By: #### C MP #### [facility] [address] [address] [address] Ramses Dumas Albumin/Globulin [Mass ratio] 0.8 {ratio} Normal [facility] Comment on above: Performed By: #### C MP #### [facility] [address] [address] [address] Ramses Dumas ALP [Catalytic activity/Vol] 108 U/L Normal 46-116 [facility] Comment on above: Performed By: #### C MP #### [facility] [address] [place] [address] Dr. Ramses Dumas ALT [Catalytic activity/Vol] 103 U/L Critically high 14-59 [facility] Comment on above: Performed By: #### C MP #### [facility] [address] [address] [address] Ramses Dumas Anion gap [Moles/Vol] 6.6 mmol/L Normal [facility] Comment on above: Performed By: #### C MP #### [facility] [address] [place] [address] Dr. Ramses Dumas AST [Catalytic activity/Vol] 21 U/L Normal 15-37 [facility] Comment on above: Performed By: #### C MP #### [facility] [address] [address] [address] Ramses Dumas Bilirubin [Mass/Vol] 0.2 mg/dL Normal 0.2-1.0 [facility] Comment on above: Performed By: #### C MP #### [facility] [address] [address] [address] Ramses Dumas Calcium [Mass/Vol] 9.2 mg/dL Normal 8.5-10.1 [facility] Comment on above: Performed By: #### C MP #### [facility] [address] [address] [address] Ramses Dumas Chloride [Moles/Vol] 102 mmol/L Normal 98-107 [facility] Comment on above: Performed By: #### C MP #### [facility] [address] [address] [address] Ramses Dumas CO2 [Moles/Vol] 28.8 mmol/L Normal 21.0-32.0 [facility] Comment on above: Performed By: #### C MP #### [facility] [address] [address] [address] Ramses Dumas Creatinine [Mass/Vol] 0.92 mg/dL Normal 0.55-1.02 [facility] Comment on above: Performed By: #### C MP #### [facility] [address] [place] [address] Dr. Ramses Dumas EGFR-AF SLOVAK >60 Normal >=60 [facility] Comment on above: Performed By: #### C MP #### [facility] [address] [address] [address] Ramses Dumas EGFR-NON AF SLOVAK >60 Normal >=60 [facility] Comment on above: Performed By: #### C MP #### [facility] [address] [place] [address] Dr. Ramses Dumas Globulin (S) [Mass/Vol] 4.1 g/dL Normal [facility] Comment on above: Performed By: #### C MP #### [facility] [address] [address] [address] Ramses Dumas Glucose [Mass/Vol] 114 mg/dL Critically high 74-106 [facility] Comment on above: Performed By: #### C MP #### [facility] [address] [place] [address] Dr. Ramses Dumas Potassium [Moles/Vol] 3.4 mmol/L Critically low 3.5-5.1 [facility] Comment on above: Performed By: #### C MP #### [facility] [address] [address] [address] Ramses Dumas Protein [Mass/Vol] 7.4 g/dL Normal 6.4-8.2 [facility] Comment on above: Performed By: #### C MP #### [facility] [address] [place] [address] Dr. Ramses Dumas Sodium [Moles/Vol] 134 mmol/L Critically low 136-145 [facility] Comment on above: Performed By: #### C MP #### [facility] [address] [place] [address] Dr. Ramses Dumas Urea nitrogen [Mass/Vol] 11.0 mg/dL Normal 7.0-18.0 [facility] Comment on above: Performed By: #### C MP #### [facility] [address] [place] [address] Dr. Ramses Dumas Urea nitrogen/Creatinine [Mass ratio] 12.0 mg/mg Normal [facility] Comment on above: Performed By: #### C MP #### [facility] [address] [place] [address] Dr. Ramses Dumas URINE MICROSCOPIC ONLYon BACTERIA MODERATE Abnormal NONE SEEN [facility] Comment on above: Performed By: #### U KJ 24 #### [facility] [address] [place] [address] Dr. Ramses Dumas Bacteria identified Cx Nom (U) INDICATED Normal [facility] Comment on above: Performed By: #### U KJ 24 #### [facility] [address] [place] [address] Dr. Ramses Dumas CAST NONE SEEN Normal NONE SEEN [facility] Comment on above: Performed By: #### U KJ 24 #### [facility] [address] [place] [address] Dr. Ramses Dumas Crystals LM Nom (Urine sed) NONE SEEN Normal NONE SEEN [facility] Comment on above: Performed By: #### U KJ 24 #### [facility] [address] [place] [address] Dr. Ramses Dumas Epithelial cells LM Ql (Urine sed) RARE Normal NONE SEEN /RARE [facility] Comment on above: Performed By: #### U KJ 24 #### [facility] [address] [place] [address] Dr. Ramses Dumas MUCOUS NONE SEEN Normal NONE SEEN [facility] Comment on above: Performed By: #### U KJ 24 #### [facility] [address] [place] [address] Dr. Ramses Dumas RBC 20-50 Abnormal 0-2 [facility] Comment on above: Performed By: #### U KJ 24 #### [facility] [address] [place] [address] Dr. Ramses Dumas WBC 5-10 Abnormal NONE SEEN [facility] Comment on above: Performed By: #### U KJ 24 #### [facility] [address] [place] [address] Dr. Ramses Dumas CULTURE BLOODon 08-25-2022 Microscopic [...] F Tetracycline >=16 R F Normal [facility] Comment on above: Performed By: #### B LDCX2 #### [facility] [address] [place] [address] Dr. Ramses Dumas Microscopic examination of blood, [...] F Tetracycline >=16 R F Normal [facility] Comment on above: Performed By: #### C BC #### [facility] [address] [place] [address] Dr. Ramses Dumas CBC AUTO DIFFon 08-24-2022 BASO # 0.0 103/ul Normal 0.0-0.1 [facility] Comment on above: Performed By: #### C BC #### [facility] [address] [place] [address] Dr. Ramses Dumas Basophils/100 WBC (Bld) 0.1 % Critically low 0.2-2.0 [facility] Comment on above: Performed By: #### C BC #### [facility] [address] [place] [address] Dr. Ramses Dumas EO # 0.0 103/ul Normal 0.0-0.7 [facility] Comment on above: Performed By: #### C BC #### [facility] [address] [place] [address] Dr. Ramses Dumas Eosinophils/100 WBC (Bld) 0.0 % Critically low 0.9-7.0 [facility] Comment on above: Performed By: #### C BC #### [facility] [address] [place] [address] Dr. Ramses Dumas Erythrocyte distribution width (RBC) [Ratio] 13.5 % Normal 11.0-15.0 [facility] Comment on above: Performed By: #### C BC #### [facility] [address] [place] [address] Dr. Ramses Dumas Hematocrit (Bld) [Volume fraction] 33.0 % Critically low 36.0-48.0 [facility] Comment on above: Performed By: #### C BC #### [facility] [address] [place] [address] Dr. Ramses Dumas Hemoglobin (Bld) [Mass/Vol] 10.7 g/dL Critically low 12.0-16.0 [facility] Comment on above: Performed By: #### C BC #### [facility] [address] [address] [address] Ramses Dumas IG # 0.04 10e3/ul Critically high 0.00-0.03 [facility] Comment on above: Performed By: #### C BC #### [facility] [address] [address] [address] Ramses Dumas IG % 0.4 % Normal 0.0-0.5 [facility] Comment on above: Performed By: #### C BC #### [facility] [address] [address] [address] Ramses Dumas LYMPH # 0.8 103/ul Critically low 1.2-3.8 [facility] Comment on above: Performed By: #### C BC #### [facility] [address] [address] [address] Ramses Dumas Lymphocytes/100 WBC (Bld) 7.9 % Critically low 20.5-60.0 [facility] Comment on above: Performed By: #### C BC #### [facility] [address] [address] [address] Ramses Dumas MANUAL DIFF REQ NO Normal [facility] Comment on above: Performed By: #### C BC #### [facility] [address] [address] [address] Ramses Dumas MCH (RBC) [Entitic mass] 26.5 pg Critically low 26.7-34.0 [facility] Comment on above: Performed By: #### C BC #### [facility] [address] [address] [address] Ramses Dumas MCHC (RBC) [Mass/Vol] 32.4 g/dL Normal 29.9-35.2 [facility] Comment on above: Performed By: #### C BC #### [facility] [address] [address] [address] Ramses Dumas MCV (RBC) [Entitic vol] 81.7 fL Normal 81.0-99.0 [facility] Comment on above: Performed By: #### C BC #### [facility] [address] [address] [address] Ramses Dumas MONO # 0.6 103/ul Normal 0.3-0.8 [facility] Comment on above: Performed By: #### C BC #### [facility] [address] [address] [address] Ramses Duams Monocytes/100 WBC (Bld) 6.3 % Normal 1.7-12.0 [facility] Comment on above: Performed By: #### C BC #### [facility] [address] [address] [address] Ramses Dumas NEUT # 8.6 103/ul Critically high 1.4-6.5 [facility] Comment on above: Performed By: #### C BC #### [facility] [address] [place] [address] Dr. Ramses Dumas Neutrophils/100 WBC (Bld) 85.3 % Critically high 43.0-75.0 [facility] Comment on above: Performed By: #### C BC #### [facility] [address] [place] [address] Dr. Ramses Dumas Platelet mean volume (Bld) [Entitic vol] 9.1 fL Critically low 9.5-13.5 [facility] Comment on above: Performed By: #### C BC #### [facility] [address] [place] [address] Dr. Ramses Dumas PLT 248 103/ul Normal 150-450 [facility] Comment on above: Performed By: #### C BC #### [facility] [address] [address] [address] Ramses Dumas RBC 4.04 106/ul Critically low 4.20-5.40 [facility] Comment on above: Performed By: #### C BC #### [facility] [address] [place] [address] Dr. Ramses Dumas WBC 10.1 103/ul Normal 4.0-11.0 [facility] Comment on above: Performed By: #### C BC #### [facility] [address] [place] [address] Dr. Ramses Dumas CULTURE URINEon 08-24-2022 CULTURE [...] S F Tetracycline >=16 R F Normal [facility] Comment on above: Performed By: #### U RCX #### [facility] [address] [place] [address] Dr. Ramses Dumas PROF 14(COMP METB)on 022 Albumin [Mass/Vol] 2.4 g/dL Critically low 3.4-5.0 [facility] Comment on above: Performed By: #### C VDTBH #### [facility] [address] [place] [address] Dr. Ramses Dumas Albumin/Globulin [Mass ratio] 0.7 {ratio} Normal [facility] Comment on above: Performed By: #### C VDTBH #### [facility] [address] [place] [address] Dr. Ramses Dumas ALP [Catalytic activity/Vol] 95 U/L Normal 46-116 [facility] Comment on above: Performed By: #### C VDTBH #### [facility] [address] [place] [address] Dr. Ramses Dumas ALT [Catalytic activity/Vol] 327 U/L Critically high 14-59 [facility] Comment on above: Performed By: #### C VDTBH #### [facility] [address] [place] [address] Dr. Ramses Dumas Anion gap [Moles/Vol] 8.7 mmol/L Normal [facility] Comment on above: Performed By: #### C VDTBH #### [facility] [address] [address] [address] Ramses Dumas AST [Catalytic activity/Vol] 165 U/L Critically high 15-37 [facility] Comment on above: Performed By: #### C VDTBH #### [facility] [address] [address] [address] Ramses Dumas Bilirubin [Mass/Vol] 0.4 mg/dL Normal 0.2-1.0 [facility] Comment on above: Performed By: #### C VDTBH #### [facility] [address] [address] [address] Ramses Dumas Calcium [Mass/Vol] 8.0 mg/dL Critically low 8.5-10.1 [facility] Comment on above: Performed By: #### C VDTBH #### [facility] [address] [place] [address] Dr. Ramses Dumas Chloride [Moles/Vol] 108 mmol/L Critically high 98-107 [facility] Comment on above: Performed By: #### C VDTBH #### [facility] [address] [address] [address] Ramses Dumas CO2 [Moles/Vol] 25.3 mmol/L Normal 21.0-32.0 [facility] Comment on above: Performed By: #### C VDTBH #### [facility] [address] [place] [address] Dr. Ramses Dumas Creatinine [Mass/Vol] 0.70 mg/dL Normal 0.55-1.02 [facility] Comment on above: Performed By: #### C VDTBH #### [facility] [address] [address] [address] Ramses Dumas EGFR-AF SLOVAK >60 Normal >=60 [facility] Comment on above: Performed By: #### C VDTBH #### [facility] [address] [address] [address] Ramses Dumas EGFR-NON AF SLOVAK >60 Normal >=60 [facility] Comment on above: Performed By: #### C VDTBH #### [facility] [address] [address] [address] Ramses Dumas Globulin (S) [Mass/Vol] 3.6 g/dL Normal [facility] Comment on above: Performed By: #### C VDTBH #### [facility] [address] [address] [address] Ramses Dumas Glucose [Mass/Vol] 160 mg/dL Critically high 74-106 [facility] Comment on above: Performed By: #### C VDTBH #### [facility] [address] [place] [address] Dr. Ramses Dumas Potassium [Moles/Vol] 4.0 mmol/L Normal 3.5-5.1 [facility] Comment on above: Performed By: #### C VDTBH #### [facility] [address] [place] [address] Dr. Ramses Dumas Protein [Mass/Vol] 6.0 g/dL Critically low 6.4-8.2 [facility] Comment on above: Performed By: #### C VDTBH #### [facility] [address] [place] [address] Dr. Ramses Dumas Sodium [Moles/Vol] 138 mmol/L Normal 136-145 [facility] Comment on above: Performed By: #### C VDTBH #### [facility] [address] [place] [address] Dr. Ramses Dumas Urea nitrogen [Mass/Vol] 6.0 mg/dL Critically low 7.0-18.0 [facility] Comment on above: Performed By: #### C VDTBH #### [facility] [address] [place] [address] Dr. Ramses Dumas Urea nitrogen/Creatinine [Mass ratio] 8.6 mg/mg Normal [facility] Comment on above: Performed By: #### C VDTBH #### [facility] [address] [place] [address] Dr. Ramses Dumas CBC AUTO DIFFon 08-23-2022 BASO # 0.0 103/ul Normal 0.0-0.1 [facility] Comment on above: Performed By: #### U RCX #### [facility] [address] [address] [address] Ramses Dumas Basophils/100 WBC (Bld) 0.2 % Normal 0.2-2.0 [facility] Comment on above: Performed By: #### U RCX #### [facility] [address] [place] [address] Dr. Ramses Dumas EO # 0.0 103/ul Normal 0.0-0.7 [facility] Comment on above: Performed By: #### U RCX #### [facility] [address] [place] [address] Dr. Ramses Dumas Eosinophils/100 WBC (Bld) 0.1 % Critically low 0.9-7.0 [facility] Comment on above: Performed By: #### U RCX #### [facility] [address] [place] [address] Dr. Ramses Dumas Erythrocyte distribution width (RBC) [Ratio] 13.4 % Normal 11.0-15.0 [facility] Comment on above: Performed By: #### U RCX #### [facility] [address] [place] [address] Dr. Ramses Dumas Hematocrit (Bld) [Volume fraction] 34.1 % Critically low 36.0-48.0 [facility] Comment on above: Performed By: #### U RCX #### [facility] [address] [place] [address] Dr. Ramses Dumas Hemoglobin (Bld) [Mass/Vol] 10.9 g/dL Critically low 12.0-16.0 [facility] Comment on above: Performed By: #### U RCX #### [facility] [address] [place] [address] Dr. Ramses Dumas IG # 0.02 10e3/ul Normal 0.00-0.03 [facility] Comment on above: Performed By: #### U RCX #### [facility] [address] [place] [address] Dr. Ramses Dumas IG % 0.2 % Normal 0.0-0.5 [facility] Comment on above: Performed By: #### U RCX #### [facility] [address] [address] [address] Ramses Dumas LYMPH # 0.7 103/ul Critically low 1.2-3.8 [facility] Comment on above: Performed By: #### U RCX #### [facility] [address] [address] [address] Ramses Dumas Lymphocytes/100 WBC (Bld) 6.9 % Critically low 20.5-60.0 [facility] Comment on above: Performed By: #### U RCX #### [facility] [address] [address] [address] Ramses Dumas MANUAL DIFF REQ NO Normal [facility] Comment on above: Performed By: #### U RCX #### [facility] [address] [address] [address] Ramses Dumas MCH (RBC) [Entitic mass] 26.1 pg Critically low 26.7-34.0 [facility] Comment on above: Performed By: #### U RCX #### [facility] [address] [address] [address] Ramses Dumas MCHC (RBC) [Mass/Vol] 32.0 g/dL Normal 29.9-35.2 [facility] Comment on above: Performed By: #### U RCX #### [facility] [address] [address] [address] Ramses Dumas MCV (RBC) [Entitic vol] 81.8 fL Normal 81.0-99.0 [facility] Comment on above: Performed By: #### U RCX #### [facility] [address] [address] [address] Ramses Dumas MONO # 0.6 103/ul Normal 0.3-0.8 [facility] Comment on above: Performed By: #### U RCX #### [facility] [address] [address] [address] Ramses Dumas Monocytes/100 WBC (Bld) 5.9 % Normal 1.7-12.0 [facility] Comment on above: Performed By: #### U RCX #### [facility] [address] [address] [address] Ramses Dumas NEUT # 8.2 103/ul Critically high 1.4-6.5 [facility] Comment on above: Performed By: #### U RCX #### [facility] [address] [address] [address] Ramses Dumas Neutrophils/100 WBC (Bld) 86.7 % Critically high 43.0-75.0 [facility] Comment on above: Performed By: #### U RCX #### [facility] [address] [address] [address] Ramses Dumas Platelet mean volume (Bld) [Entitic vol] 9.4 fL Critically low 9.5-13.5 [facility] Comment on above: Performed By: #### U RCX #### [facility] [address] [address] [address] Ramses Dumas PLT 235 103/ul Normal 150-450 [facility] Comment on above: Performed By: #### U RCX #### [facility] [address] [address] [address] Ramses Dumas RBC 4.17 106/ul Critically low 4.20-5.40 [facility] Comment on above: Performed By: #### U RCX #### [facility] [address] [address] [address] Ramses Dumas WBC 9.5 103/ul Normal 4.0-11.0 [facility] Comment on above: Performed By: #### U RCX #### [facility] [address] [address] [address] Ramses Dumas PROF 14(COMP METB)on 022 Albumin [Mass/Vol] 2.6 g/dL Critically low 3.4-5.0 [facility] Comment on above: Performed By: #### U KJ 24 #### [facility] [address] [place] [address] Dr. Ramses Dumas Albumin/Globulin [Mass ratio] 0.8 {ratio} Normal [facility] Comment on above: Performed By: #### U KJ 24 #### [facility] [address] [address] [address] Ramses Dumas ALP [Catalytic activity/Vol] 82 U/L Normal 46-116 [facility] Comment on above: Performed By: #### U KJ 24 #### [facility] [address] [address] [address] Ramses Dumas ALT [Catalytic activity/Vol] 257 U/L Critically high 14-59 [facility] Comment on above: Performed By: #### U KJ 24 #### [facility] [address] [address] [address] Ramses Dumas Anion gap [Moles/Vol] 10.3 mmol/L Normal [facility] Comment on above: Performed By: #### U KJ 24 #### [facility] [address] [address] [address] Ramses Dumas AST [Catalytic activity/Vol] 196 U/L Critically high 15-37 [facility] Comment on above: Performed By: #### U KJ 24 #### [facility] [address] [address] [address] Ramses Dumas Bilirubin [Mass/Vol] 0.5 mg/dL Normal 0.2-1.0 [facility] Comment on above: Performed By: #### U KJ 24 #### [facility] [address] [address] [address] aRmses Dumas Calcium [Mass/Vol] 7.8 mg/dL Critically low 8.5-10.1 [facility] Comment on above: Performed By: #### U KJ 24 #### [facility] [address] [address] [address] Ramses Dumas Chloride [Moles/Vol] 104 mmol/L Normal 98-107 [facility] Comment on above: Performed By: #### U KJ 24 #### [facility] [address] [address] [address] Ramses Dumas CO2 [Moles/Vol] 24.4 mmol/L Normal 21.0-32.0 [facility] Comment on above: Performed By: #### U KJ 24 #### [facility] [address] [address] [address] Ramses Dumas Creatinine [Mass/Vol] 1.09 mg/dL Critically high 0.55-1.02 [facility] Comment on above: Performed By: #### U KJ 24 #### [facility] [address] [address] [address] Ramses Dumas EGFR-AF SLOVAK >60 Normal >=60 [facility] Comment on above: Performed By: #### U KJ 24 #### [facility] [address] [address] [address] Ramses Dumas EGFR-NON AF SLOVAK 59 mL/min/1.73m2 Critically low >=60 [facility] Comment on above: Performed By: #### U KJ 24 #### [facility] [address] [address] [address] Ramses Dumas Globulin (S) [Mass/Vol] 3.3 g/dL Normal [facility] Comment on above: Performed By: #### U KJ 24 #### [facility] [address] [address] [address] Ramses Dumas Glucose [Mass/Vol] 143 mg/dL Critically high 74-106 T [facility] Comment on above: Performed By: #### U KJ 24 #### [facility] [address] [address] [address] Ramses Dumas Potassium [Moles/Vol] 3.7 mmol/L Normal 3.5-5.1 [facility] Comment on above: Performed By: #### U KJ 24 #### [facility] [address] [address] [address] Ramses Dumas Protein [Mass/Vol] 5.9 g/dL Critically low 6.4-8.2 [facility] Comment on above: Performed By: #### U KJ 24 #### [facility] [address] [address] [address] Ramses Dumas Sodium [Moles/Vol] 135 mmol/L Critically low 136-145 [facility] Comment on above: Performed By: #### U KJ 24 #### [facility] [address] [address] [address] Ramses Dumas Urea nitrogen [Mass/Vol] 10.0 mg/dL Normal 7.0-18.0 [facility] Comment on above: Performed By: #### U KJ 24 #### [facility] [address] [place] [address] Dr. Ramses Dumas Urea nitrogen/Creatinine [Mass ratio] 9.2 mg/mg Normal [facility] Comment on above: Performed By: #### U KJ 24 #### [facility] [address] [place] [address] Dr. Ramses Dumas BLOOD CULTURE ID PANELon A. [email or web address] Not detected Normal NOT DETECTED [facility] Comment on above: Performed By: #### C VDTBH #### [facility] [address] [place] [address] Dr. Ramses Dumas Bacteriodes fragilis Not detected Normal NOT DETECTED [facility] Comment on above: Performed By: #### C VDTBH #### [facility] [address] [place] [address] Dr. Ramses BAKER CONTROLS PASSED Normal The [facility] Comment on above: Performed By: #### C VDTBH #### [facility] [address] [place] [address] Dr. Ramses Dumas BCIDBTHD BLOOD CULTURE BOTTLE INFORMATION Normal [facility] Comment on above: Performed By: #### C VDTBH #### [facility] [address] [place] [address] Dr. Ramses Dumas BCIDHD1 ANTIMICROBIAL RESISTANCE GENES Normal [facility] Comment on above: Performed By: #### C VDTBH #### [facility] [address] [place] [address] Dr. Ramses Dumas BCIDHD2 SEE BELOW Normal [facility] Comment on above: Result Comment: Note : Antimicrobial resitance can occur via multiple mechanisms. A Not Detected result for the [employer] antomicrobial resistance gene assays does not indicate antimicrobial susceptibility. Subculturing is required for species identification and susceptibility testing of isolates. Performed By: #### C VDTBH #### [facility] [address] [place] [address] Dr. Ramses Dumas BCIDHD3 Positive Normal [facility] Comment on above: Performed By: #### C VDTBH #### [facility] [address] [place] [address] Dr. Ramses Dumas BCIDHD4 Negative Normal [facility] Comment on above: Performed By: #### C VDTBH #### [facility] [address] [place] [address] Dr. Ramses Dumas BCIDHD5 YEAST [facility] Comment on above: Performed By: #### C VDTBH #### [facility] [address] [place] [address] Dr. Ramses Garcia Set: Set 1 [facility] Comment on above: Performed By: #### C VDTBH #### [facility] [address] [place] [address] Dr. Ramses Dumas Bottle: Pediatric Normal [facility] Comment on above: Performed By: #### C VDTBH #### [facility] [address] [place] [address] Dr. Ramses Vincent. neoformans/gattii Not detected Normal NOT DETECTED [facility] Comment on above: Performed By: #### C VDTBH #### [facility] [address] [place] [address] Dr. Ramses Dumas Kim albicans Not detected Normal NOT DETECTED [facility] Comment on above: Performed By: #### C VDTBH #### [facility] [address] [place] [address] Dr. Ramses Dumas Kim auris Not detected Normal NOT DETECTED [facility] Comment on above: Performed By: #### C VDTBH #### [facility] [address] [place] [address] Dr. Ramses Dumas Kim glabrata Not detected Normal NOT DETECTED [facility] Comment on above: Performed By: #### C VDTBH #### [facility] [address] [place] [address] Dr. Ramses Dumas Kim Krusei Not detected Normal NOT DETECTED [facility] Comment on above: Performed By: #### C VDTBH #### [facility] [address] [place] [address] Dr. Ramses Dumas Kim Parapsilosis Not detected Normal NOT DETECTED [facility] Comment on above: Performed By: #### C VDTBH #### [facility] [address] [place] [address] Dr. Ramses Dumas Kim Tropicalis Not detected Normal NOT DETECTED [facility] Comment on above: Performed By: #### C VDTBH #### [facility] [address] [place] [address] Dr. Ramses Dumas CTX-M Resistant Gene Not Applicable Normal NOT DETECTE D [facility] Comment on above: Performed By: #### C VDTBH #### [facility] [address] [place] [address] Dr. Ramses Dumas E. Cloacae complex Not detected Normal NOT DETECTED [facility] Comment on above: Performed By: #### C VDTBH #### [facility] [address] [place] [address] Dr. Ramses Dumas E. faecalis Not detected Normal NOT DETECTED [facility] Comment on above: Performed By: #### C VDTBH #### [facility] [address] [place] [address] Dr. Ramses Dumas E. faecium Not detected Normal NOT DETECTED [facility] Comment on above: Performed By: #### C VDTBH #### [facility] [address] [place] [address] Dr. Ramses Dumas Enterobacteriaceae Not detected Normal NOT DETECTED [facility] Comment on above: Performed By: #### C VDTBH #### [facility] [address] [place] [address] Dr. Ramess Dumas Escherichia coli Not detected Normal NOT DETECTED [facility] Comment on above: Performed By: #### C VDTBH #### [facility] [address] [place] [address] Dr. Ramses Dumas H. influenzae Not detected Normal NOT DETECTED [facility] Comment on above: Performed By: #### C VDTBH #### [facility] [address] [place] [address] Dr. Ramses Dumas IMP Resistant Gene Not Applicable Normal NOT DETECTED [facility] Comment on above: Performed By: #### C VDTBH #### [facility] [address] [place] [address] Dr. Ramses Betancourt. oxytoca Not detected Normal NOT DETECTED [facility] Comment on above: Performed By: #### C VDTBH #### [facility] [address] [place] [address] Dr. Ramses Dumas K. pneumoniae Not detected Normal NOT DETECTED [facility] Comment on above: Performed By: #### C VDTBH #### [facility] [address] [place] [address] Dr. Ramses Dumas Klebsiella aerogenes Not detected Normal NOT DETECTED [facility] Comment on above: Performed By: #### C VDTBH #### [facility] [address] [place] [address] Dr. Ramses Dumas KPC Resistant Gene Not detected Normal NOT DETECTED [facility] Comment on above: Performed By: #### C VDTBH #### [facility] [address] [place] [address] Dr. Ramses Dumas List. monocytogenes Not detected Normal NOT DETECTED [facility] Comment on above: Performed By: #### C VDTBH #### [facility] [address] [place] [address] Dr. Ramses Dumas Mcr-1 Resistant Gene Not Applicable Normal NOT DETECTE D [facility] Comment on above: Performed By: #### C VDTBH #### [facility] [address] [place] [address] Dr. Ramses Dumas mecA/C Not Applicable Normal NOT DETECTED [facility] Comment on above: Performed By: #### C VDTBH #### [facility] [address] [place] [address] Dr. Ramses Dumas mecA/C MREJ Not Applicable Normal NOT DETECTED [facility] Comment on above: Performed By: #### C VDTBH #### [facility] [address] [place] [address] Dr. Ramses Dumas N. meningitidis Not detected Normal NOT DETECTED [facility] Comment on above: Performed By: #### C VDTBH #### [facility] [address] [place] [address] Dr. Ramses Dumas NDM Resistant Gene Not Applicable Normal NOT DETECTED [facility] Comment on above: Performed By: #### C VDTBH #### [facility] [address] [place] [address] Dr. Ramses Dumas Oxa-48-like Not Applicable Normal NOT DETECTED [facility] Comment on above: Performed By: #### C VDTBH #### [facility] [address] [place] [address] Dr. Ramses Dumas Proteus Not detected Normal NOT DETECTED [facility] Comment on above: Performed By: #### C VDTBH #### [facility] [address] [place] [address] Dr. Ramses Dumas Pseud. aeruginosa Not detected Normal NOT DETECTED [facility] Comment on above: Performed By: #### C VDTBH #### [facility] [address] [place] [address] Dr. Ramses Dumas S. maltophilia Not detected Normal NOT DETECTED [facility] Comment on above: Performed By: #### C VDTBH #### [facility] [address] [place] [address] Dr. Ramses Dumas Salmonella Not detected Normal NOT DETECTED [facility] Comment on above: Performed By: #### C VDTBH #### [facility] [address] [place] [address] Dr. Ramses Dumas Seratia marcescens Not detected Normal NOT DETECTED [facility] Comment on above: Performed By: #### C VDTBH #### [facility] [address] [place] [address] Dr. Ramses Dumas Site: unknown/not given Normal [facility] Comment on above: Performed By: #### C VDTBH #### [facility] [address] [place] [address] Dr. Ramses Dumas Stapphillip. aureus Not detected Normal NOT DETECTED [facility] Comment on above: Performed By: #### C VDTBH #### [facility] [address] [place] [address] Dr. Ramses Dumas Stapphillip. epidermidis Not detected Normal NOT DETECTED [facility] Comment on above: Performed By: #### C VDTBH #### [facility] [address] [place] [address] Dr. Ramses Dumas Stapphillip. lugdunensis Not detected Normal NOT DETECTED [facility] Comment on above: Performed By: #### C VDTBH #### [facility] [address] [place] [address] Dr. Ramses Dumas Staphylococcus Not detected Normal NOT DETECTED [facility] Comment on above: Performed By: #### C VDTBH #### [facility] [address] [place] [address] Dr. Ramses Dumas Strep. agalactiae Detected Critically abnormal NOT DETECTED [facility] Comment on above: Performed By: #### C VDTBH #### [facility] [address] [place] [address] Dr. Ramses Dumas Strep. pneumoniae Not detected Normal NOT DETECTED [facility] Comment on above: Performed By: #### C VDTBH #### [facility] [address] [place] [address] Dr. Ramses Dumas Strep. pyogenes Not detected Normal NOT DETECTED [facility] Comment on above: Performed By: #### C VDTBH #### [facility] [address] [place] [address] Dr. Ramses Dumas Streptococcus Detected Critically abnormal NOT DETECTED [facility] Comment on above: Performed By: #### C VDTBH #### [facility] [address] [place] [address] Dr. Ramses Dumas Efrain/B Resist. Gene Not detected Normal NOT DETECTED [facility] Comment on above: Performed By: #### C VDTBH #### [facility] [address] [place] [address] Dr. Ramses Dumas VIM Resistant Gene Not Applicable Normal NOT DETECTED [facility] Comment on above: Performed By: #### C VDTBH #### [facility] [address] [place] [address] Dr. Rmases Dumas CBC AUTO DIFFon 08-22-2022 BASO # 0.1 103/ul Normal 0.0-0.1 [facility] Comment on above: Performed By: #### U KJ 24 #### [facility] [address] [place] [address] Dr. Ramses Dumas Basophils/100 WBC (Bld) 0.7 % Normal 0.2-2.0 [facility] Comment on above: Performed By: #### U KJ 24 #### [facility] [address] [place] [address] Dr. Ramses Dumas EO # 0.1 103/ul Normal 0.0-0.7 [facility] Comment on above: Performed By: #### U KJ 24 #### [facility] [address] [place] [address] Dr. Ramses Dumas Eosinophils/100 WBC (Bld) 1.7 % Normal 0.9-7.0 [facility] Comment on above: Performed By: #### U KJ 24 #### [facility] [address] [place] [address] Dr. Ramses Dumas Erythrocyte distribution width (RBC) [Ratio] 13.2 % Normal 11.0-15.0 [facility] Comment on above: Performed By: #### U KJ 24 #### [facility] [address] [place] [address] Dr. Ramses Dumas Hematocrit (Bld) [Volume fraction] 39.8 % Normal 36.0-48.0 [facility] Comment on above: Performed By: #### U KJ 24 #### [facility] [address] [place] [address] Dr. Ramses Duams Hemoglobin (Bld) [Mass/Vol] 12.9 g/dL Normal 12.0-16.0 [facility] Comment on above: Performed By: #### U KJ 24 #### [facility] [address] [address] [address] Ramses Dumas IG # 0.02 10e3/ul Normal 0.00-0.03 [facility] Comment on above: Performed By: #### U KJ 24 #### [facility] [address] [place] [address] Dr. Ramses Dumas IG % 0.2 % Normal 0.0-0.5 [facility] Comment on above: Performed By: #### U KJ 24 #### [facility] [address] [place] [address] Dr. Ramses Dumas LYMPH # 3.2 103/ul Normal 1.2-3.8 [facility] Comment on above: Performed By: #### U KJ 24 #### [facility] [address] [place] [address] Dr. Ramses Dumas Lymphocytes/100 WBC (Bld) 40.0 % Normal 20.5-60.0 [facility] Comment on above: Performed By: #### U KJ 24 #### [facility] [address] [place] [address] Dr. Ramses Dumas MANUAL DIFF REQ NO Normal [facility] Comment on above: Performed By: #### U KJ 24 #### [facility] [address] [place] [address] Dr. Ramses Dumas MCH (RBC) [Entitic mass] 26.6 pg Critically low 26.7-34.0 [facility] Comment on above: Performed By: #### U KJ 24 #### [facility] [address] [place] [address] Dr. Ramses Dumas MCHC (RBC) [Mass/Vol] 32.4 g/dL Normal 29.9-35.2 [facility] Comment on above: Performed By: #### U KJ 24 #### [facility] [address] [place] [address] Dr. Ramses Dumas MCV (RBC) [Entitic vol] 82.1 fL Normal 81.0-99.0 [facility] Comment on above: Performed By: #### U KJ 24 #### [facility] [address] [place] [address] Dr. Ramses Dumas MONO # 0.6 103/ul Normal 0.3-0.8 [facility] Comment on above: Performed By: #### U KJ 24 #### [facility] [address] [place] [address] Dr. Ramses Dumas Monocytes/100 WBC (Bld) 7.5 % Normal 1.7-12.0 [facility] Comment on above: Performed By: #### U KJ 24 #### [facility] [address] [place] [address] Dr. Ramses Dumas NEUT # 4.0 103/ul Normal 1.4-6.5 [facility] Comment on above: Performed By: #### U KJ 24 #### [facility] [address] [place] [address] Dr. Ramses Dumas Neutrophils/100 WBC (Bld) 49.9 % Normal 43.0-75.0 [facility] Comment on above: Performed By: #### U KJ 24 #### [facility] [address] [place] [address] Dr. Ramses Dumas Platelet mean volume (Bld) [Entitic vol] 9.3 fL Critically low 9.5-13.5 [facility] Comment on above: Performed By: #### U KJ 24 #### [facility] [address] [place] [address] Dr. Ramses Dumas PLT 354 103/ul Normal 150-450 [facility] Comment on above: Performed By: #### U KJ 24 #### [facility] [address] [place] [address] Dr. Ramses Dumas RBC 4.85 106/ul Normal 4.20-5.40 [facility] Comment on above: Performed By: #### U KJ 24 #### [facility] [address] [place] [address] Dr. Ramses Dumas WBC 8.1 103/ul Normal 4.0-11.0 [facility] Comment on above: Performed By: #### U KJ 24 #### [facility] [address] [place] [address] ABD/PELVIS WO CONon [...] KESHIA IRIZARRY Date: 2022-08-22 07:04 Normal [facility] Covid-19 PCR (CVDTB)on SARS-CoV-2 (COVID-19) RNA FRANCESCA+probe Ql (Unsp spec) Not detected Normal NOT DETECTED [facility] Comment on above: Result Comment: When [...] for this test is supported by the Manager [employer] of [employer] and Human Service's declaration that [...] used). Performed By: #### C MP #### [facility] [address] [place] [address] Dr. Ramses Dumas ER URINE PROFILEon 2 Bilirubin Ql (U) Negative Normal NEGATIVE [facility] Comment on above: Performed By: #### U RCX #### [facility] [address] [place] [address] Dr. Ramses Dumas Clarity (U) CLEAR Normal CLEAR [facility] Comment on above: Performed By: #### U RCX #### [facility] [address] [place] [address] Dr. Ramses Dumas Color (U) LT. YELLOW Normal YELLOW [facility] Comment on above: Performed By: #### U RCX #### [facility] [address] [place] [address] Dr. Ramses Dumas ERUWalter A micrscopic examination will be performed if indicated. Normal [facility] Comment on above: Performed By: #### U RCX #### [facility] [address] [place] [address] Dr. Ramses Dumas Glucose Ql (U) Negative Normal NEGATIVE [facility] Comment on above: Performed By: #### U RCX #### [facility] [address] [place] [address] Dr. Ramses Dumas Hemoglobin Ql (U) SMALL Abnormal NEGATIVE [facility] Comment on above: Performed By: #### U RCX #### [facility] [address] [place] [address] Dr. Ramses Dumas Ketones Ql (U) Negative Normal NEGATIVE [facility] Comment on above: Performed By: #### U RCX #### [facility] [address] [place] [address] Dr. Ramses Dumas LEUKOCYTES SMALL Abnormal NEGATIVE [facility] Comment on above: Performed By: #### U RCX #### [facility] [address] [place] [address] Dr. Ramses Dumas Nitrite Ql (U) Negative Normal NEGATIVE [facility] Comment on above: Performed By: #### U RCX #### [facility] [address] [place] [address] Dr. Ramses Dumas pH (U) 7.0 [pH] Normal 5-9 [facility] Comment on above: Performed By: #### U RCX #### [facility] [address] [place] [address] Dr. Ramses Dumas Protein (U) [Mass/Vol] 30 mg/dL Abnormal NEGAT CHRIS/ TRACE [facility] Comment on above: Performed By: #### U RCX #### [facility] [address] [place] [address] Dr. Ramses Dumas SPEC GRAVITY 1.020 Normal 1.005-<=1.02 5 [facility] Comment on above: Performed By: #### U RCX #### [facility] [address] [place] [address] Dr. Ramses Dumas UR MICRO IND INDICATED Normal [facility] Comment on above: Performed By: #### U RCX #### [facility] [address] [place] [address] Dr. Ramses Dumas Urobilinogen Qn (U) 0.2 {Lucero'U}/dL Normal 0.2 - 1. 0 [facility] Comment on above: Performed By: #### U RCX #### [facility] [address] [place] [address] Dr. Ramses Dumas LACTATE/LACTIC ACIDon 2021 Lactate [Moles/Vol] 2.3 mmol/L Critically high 0.4-1.9 [facility] Comment on above: Performed By: #### U RCX #### [facility] [address] [place] [address] Dr. Ramses Dumas URon 08-22-2022 , QUAL Negative Normal NEGATIVE [facility] Comment on above: Performed By: #### U RCX #### [facility] [address] [address] [address] Ramses Dumas PROF 14(COMP METB)on 022 Albumin [Mass/Vol] 3.5 g/dL Normal 3.4-5.0 [facility] Comment on above: Performed By: #### U RCX #### [facility] [address] [address] [address] Ramses Dumas Albumin/Globulin [Mass ratio] 0.9 {ratio} Normal [facility] Comment on above: Performed By: #### U RCX #### [facility] [address] [address] [address] Ramses Dumas ALP [Catalytic activity/Vol] 92 U/L Normal 46-116 [facility] Comment on above: Performed By: #### U RCX #### [facility] [address] [place] [address] Dr. Ramses Dumas ALT [Catalytic activity/Vol] 139 U/L Critically high 14-59 [facility] Comment on above: Performed By: #### U RCX #### [facility] [address] [address] [address] Ramses Dumas Anion gap [Moles/Vol] 10.2 mmol/L Normal [facility] Comment on above: Performed By: #### U RCX #### [facility] [address] [address] [address] Ramses Dumas AST [Catalytic activity/Vol] 112 U/L Critically high 15-37 [facility] Comment on above: Performed By: #### U RCX #### [facility] [address] [address] [address] Ramses Dumas Bilirubin [Mass/Vol] 0.2 mg/dL Normal 0.2-1.0 [facility] Comment on above: Performed By: #### U RCX #### [facility] [address] [address] [address] Ramses Dumas Calcium [Mass/Vol] 8.8 mg/dL Normal 8.5-10.1 [facility] Comment on above: Performed By: #### U RCX #### [facility] [address] [address] [address] Ramses Dumas Chloride [Moles/Vol] 105 mmol/L Normal 98-107 [facility] Comment on above: Performed By: #### U RCX #### [facility] [address] [address] [address] Ramses Dumas CO2 [Moles/Vol] 26.3 mmol/L Normal 21.0-32.0 [facility] Comment on above: Performed By: #### U RCX #### [facility] [address] [address] [address] Ramses Dumas Creatinine [Mass/Vol] 0.95 mg/dL Normal 0.55-1.02 [facility] Comment on above: Performed By: #### U RCX #### [facility] [address] [place] [address] Dr. Ramses Dumas EGFR-AF SLOVAK >60 Normal >=60 [facility] Comment on above: Performed By: #### U RCX #### [facility] [address] [address] [address] Ramses Dumas EGFR-NON AF SLOVAK >60 Normal >=60 [facility] Comment on above: Performed By: #### U RCX #### [facility] [address] [address] [address] Ramses Dumas Globulin (S) [Mass/Vol] 3.9 g/dL Normal [facility] Comment on above: Performed By: #### U RCX #### [facility] [address] [address] [address] Ramses Dumas Glucose [Mass/Vol] 137 mg/dL Critically high 74-106 [facility] Comment on above: Performed By: #### U RCX #### [facility] [address] [address] [address] Ramses Dumas Potassium [Moles/Vol] 3.5 mmol/L Normal 3.5-5.1 [facility] Comment on above: Performed By: #### U RCX #### [facility] [address] [address] [address] Ramses Dumas Protein [Mass/Vol] 7.4 g/dL Normal 6.4-8.2 [facility] Comment on above: Performed By: #### U RCX #### [facility] [address] [address] [address] Ramses Dumas Sodium [Moles/Vol] 138 mmol/L Normal 136-145 [facility] Comment on above: Performed By: #### U RCX #### [facility] [address] [place] [address] Dr. Ramses Dumas Urea nitrogen [Mass/Vol] 11.0 mg/dL Normal 7.0-18.0 [facility] Comment on above: Performed By: #### U RCX #### [facility] [address] [place] [address] Dr. Ramses Dumas Urea nitrogen/Creatinine [Mass ratio] 11.6 mg/mg Normal [facility] Comment on above: Performed By: #### U RCX #### [facility] [address] [place] [address] Dr. Ramses Dumas URINE MICROSCOPIC ONLYon BACTERIA LARGE Abnormal NONE SEEN [facility] Comment on above: Performed By: #### U RCX #### [facility] [address] [place] [address] Dr. Ramses Dumas Bacteria identified Cx Nom (U) CX ALREADY ORDERED Normal [facility] Comment on above: Performed By: #### U RCX #### [facility] [address] [address] [address] Ramses Dumas CAST NONE SEEN Normal NONE SEEN [facility] Comment on above: Performed By: #### U RCX #### [facility] [address] [place] [address] Dr. Ramses Dumas Crystals LM Nom (Urine sed) NONE SEEN Normal NONE SEEN [facility] Comment on above: Performed By: #### U RCX #### [facility] [address] [place] [address] Dr. Ramses Dumas Epithelial cells LM Ql (Urine sed) MANY Abnormal NONE SEEN /RARE [facility] Comment on above: Performed By: #### U RCX #### [facility] [address] [place] [address] Dr. Ramses Dumas MUCOUS NONE SEEN Normal NONE SEEN [facility] Comment on above: Performed By: #### U RCX #### [facility] [address] [place] [address] Dr. Ramses Dumas RBC 5-10 Abnormal 0-2 [facility] Comment on above: Performed By: #### U RCX #### [facility] [address] [place] [address] Dr. Ramses Dumas WBC 50-75 Abnormal NONE SEEN [facility] Comment on above: Performed By: #### U RCX #### [facility] [address] [place] [address] Dr. Ramses Dumas CULTURE URINEon 08-15-2022 CULTURE [...] F Tetracycline >=16 R F Normal [facility] Comment on above: Performed By: #### U RCX #### [facility] [address] [place] [address] Dr. Ramses Dumas ACETAMINOPHENon 08-13-2022 Acetaminophen [Mass/Vol] ug/mL Critically low 10.0-30.0 [facility] Comment on above: Performed By: #### U RCX #### [facility] [address] [place] [address] Dr. Ramses Dumas CBC AUTO DIFFon 08-13-2022 BASO # 0.1 103/ul Normal 0.0-0.1 [facility] Comment on above: Performed By: #### C VDTBH #### [facility] [address] [place] [address] Dr. Ramses Dumas Basophils/100 WBC (Bld) 0.8 % Normal 0.2-2.0 [facility] Comment on above: Performed By: #### C VDTBH #### [facility] [address] [place] [address] Dr. Ramses Dumas EO # 0.1 103/ul Normal 0.0-0.7 [facility] Comment on above: Performed By: #### C VDTBH #### [facility] [address] [place] [address] Dr. Ramses Dumas Eosinophils/100 WBC (Bld) 1.6 % Normal 0.9-7.0 [facility] Comment on above: Performed By: #### C VDTBH #### [facility] [address] [place] [address] Dr. Ramses Dumas Erythrocyte distribution width (RBC) [Ratio] 13.3 % Normal 11.0-15.0 [facility] Comment on above: Performed By: #### C VDTBH #### [facility] [address] [place] [address] Dr. Ramses Dumas Hematocrit (Bld) [Volume fraction] 40.6 % Normal 36.0-48.0 [facility] Comment on above: Performed By: #### C VDTBH #### [facility] [address] [place] [address] Dr. Ramses Dumas Hemoglobin (Bld) [Mass/Vol] 13.2 g/dL Normal 12.0-16.0 [facility] Comment on above: Performed By: #### C VDTBH #### [facility] [address] [place] [address] Dr. Ramses Dumas IG # 0.01 10e3/ul Normal 0.00-0.03 [facility] Comment on above: Performed By: #### C VDTBH #### [facility] [address] [place] [address] Dr. Ramses Dumas IG % 0.2 % Normal 0.0-0.5 [facility] Comment on above: Performed By: #### C VDTBH #### [facility] [address] [place] [address] Dr. Ramses Dumas LYMPH # 2.4 103/ul Normal 1.2-3.8 [facility] Comment on above: Performed By: #### C VDTBH #### [facility] [address] [place] [address] Dr. Ramses Dumas Lymphocytes/100 WBC (Bld) 37.7 % Normal 20.5-60.0 [facility] Comment on above: Performed By: #### C VDTBH #### [facility] [address] [place] [address] Dr. Ramses Dumas MANUAL DIFF REQ NO Normal [facility] Comment on above: Performed By: #### C VDTBH #### [facility] [address] [place] [address] Dr. Ramses Dumas MCH (RBC) [Entitic mass] 26.7 pg Normal 26.7-34.0 [facility] Comment on above: Performed By: #### C VDTBH #### [facility] [address] [place] [address] Dr. Ramses Dumas MCHC (RBC) [Mass/Vol] 32.5 g/dL Normal 29.9-35.2 [facility] Comment on above: Performed By: #### C VDTBH #### [facility] [address] [place] [address] Dr. Ramses Dumas MCV (RBC) [Entitic vol] 82.0 fL Normal 81.0-99.0 [facility] Comment on above: Performed By: #### C VDTBH #### [facility] [address] [place] [address] Dr. Ramses Dumas MONO # 0.6 103/ul Normal 0.3-0.8 [facility] Comment on above: Performed By: #### C VDTBH #### [facility] [address] [place] [address] Dr. Ramses Dumas Monocytes/100 WBC (Bld) 8.6 % Normal 1.7-12.0 [facility] Comment on above: Performed By: #### C VDTBH #### [facility] [address] [place] [address] Dr. Ramses Dumas NEUT # 3.3 103/ul Normal 1.4-6.5 [facility] Comment on above: Performed By: #### C VDTBH #### [facility] [address] [place] [address] Dr. Ramses Dumas Neutrophils/100 WBC (Bld) 51.1 % Normal 43.0-75.0 [facility] Comment on above: Performed By: #### C VDTBH #### [facility] [address] [place] [address] Dr. Ramses Dumas Platelet mean volume (Bld) [Entitic vol] 8.7 fL Critically low 9.5-13.5 [facility] Comment on above: Performed By: #### C VDTBH #### [facility] [address] [place] [address] Dr. Ramses Dumas PLT 409 103/ul Normal 150-450 [facility] Comment on above: Performed By: #### C VDTBH #### [facility] [address] [place] [address] Dr. Ramses Dumas RBC 4.95 106/ul Normal 4.20-5.40 [facility] Comment on above: Performed By: #### C VDTBH #### [facility] [address] [place] [address] Dr. Ramses Dumas WBC 6.4 103/ul Normal 4.0-11.0 [facility] Comment on above: Performed By: #### C VDTBH #### [facility] [address] [place] [address] Dr. Ramses Dumas Covid-19 PCR ([facility])on 07-20 SARS-CoV-2 (COVID-19) RNA FRANCESCA+probe Ql (Unsp spec) Not detected Normal NOT DETECTED [facility] Comment on above: Result Comment: When [...] for this test is supported by the [place] of Health and Human Service's declaration that [...] used). Performed By: #### C VDTB #### [facility] [address] [place] [address] Dr. Ramses Dumas DRUG SCREEN RAPID (URINE)on 08-13-2022 AMP Negative Normal NEGATIVE [facility] Comment on above: Performed By: #### C BC #### [facility] [address] [place] [address] Dr. Ramses Dumas BAR Negative Normal NEGATIVE [facility] Comment on above: Performed By: #### C BC #### [facility] [address] [place] [address] Dr. Ramses Dumas BUP Negative Normal NEGATIVE [facility] Comment on above: Performed By: #### C BC #### [facility] [address] [place] [address] Dr. Ramses Dumas BZO Negative Normal NEGATIVE [facility] Comment on above: Performed By: #### C BC #### [facility] [address] [place] [address] Dr. aRmses Dumas ODILIA Negative Normal NEGATIVE [facility] Comment on above: Performed By: #### C BC #### [facility] [address] [place] [address] Dr. Ramses Dumas CUT-OFFS SEE BELOW Normal [facility] Comment on above: Result Comment: AMP [...] ng/mL Performed By: #### C BC #### [facility] [address] [place] [address] Dr. Ramses Dumas DRUG CUT HEADER DRUG CLASS TEST SYST EM CUT-OFF CONCENTRATIONS ARE FOLLOWS: Normal [facility] Comment on above: Performed By: #### C BC #### [facility] [address] [place] [address] Dr. Ramses Dumas mAMP Negative Normal NEGATIVE [facility] Comment on above: Performed By: #### C BC #### [facility] [address] [place] [address] Dr. Ramses Dumas MTD Negative Normal NEGATIVE [facility] Comment on above: Performed By: #### C BC #### [facility] [address] [place] [address] Dr. Ramses Dumas OPI Negative Normal NEGATIVE [facility] Comment on above: Performed By: #### C BC #### [facility] [address] [place] [address] Dr. Ramses Dumas OXY Negative Normal NEGATIVE [facility] Comment on above: Performed By: #### C BC #### [facility] [address] [place] [address] Dr. Ramses Dumas PCP Negative Normal NEGATIVE [facility] Comment on above: Performed By: #### C BC #### [facility] [address] [place] [address] Dr. Ramses Dumas PPX Negative Normal NEGATIVE [facility] Comment on above: Performed By: #### C BC #### [facility] [address] [place] [address] Dr. Ramses Dumas TCA Negative Normal NEGATIVE [facility] Comment on above: Performed By: #### C BC #### [facility] [address] [place] [address] Dr. Ramses Dumas THC Negative Normal NEGATIVE [facility] Comment on above: Performed By: #### C BC #### [facility] [address] [place] [address] Dr. Ramses Dumas ER URINE PROFILEon 2 Bilirubin Ql (U) Negative Normal NEGATIVE [facility] Comment on above: Performed By: #### C BC #### [facility] [address] [place] [address] Dr. Ramses Dumas Clarity (U) CLEAR Normal CLEAR [facility] Comment on above: Performed By: #### C BC #### [facility] [address] [place] [address] Dr. Ramses Dumas Color (U) LT. YELLOW Normal YELLOW [facility] Comment on above: Performed By: #### C BC #### [facility] [address] [place] [address] Dr. Ramses Dumas ERUWalter A micrscopic examination will be performed if indicated. Normal [facility] Comment on above: Performed By: #### C BC #### [facility] [address] [place] [address] Dr. Ramses Dumas Glucose Ql (U) Negative Normal NEGATIVE [facility] Comment on above: Performed By: #### C BC #### [facility] [address] [place] [address] Dr. Ramses Dumas Hemoglobin Ql (U) LARGE Abnormal NEGATIVE [facility] Comment on above: Performed By: #### C BC #### [facility] [address] [place] [address] Dr. Ramses Dumas Ketones Ql (U) Negative Normal NEGATIVE [facility] Comment on above: Performed By: #### C BC #### [facility] [address] [place] [address] Dr. Ramses Dumas LEUKOCYTES LARGE Abnormal NEGATIVE [facility] Comment on above: Performed By: #### C BC #### [facility] [address] [place] [address] Dr. Ramses Dumas Nitrite Ql (U) Positive Abnormal NEGATIVE [facility] Comment on above: Performed By: #### C BC #### [facility] [address] [place] [address] Dr. Ramses Dumas pH (U) 6.0 [pH] Normal 5-9 [facility] Comment on above: Performed By: #### C BC #### [facility] [address] [place] [address] Dr. Ramses Dumas Protein (U) [Mass/Vol] 30 mg/dL Abnormal NEGAT CHRIS/ TRACE [facility] Comment on above: Performed By: #### C BC #### [facility] [address] [place] [address] Dr. Ramses Dumas SPEC GRAVITY >=1.030 Abnormal 1.005-<=1.02 5 [facility] Comment on above: Performed By: #### C BC #### [facility] [address] [place] [address] Dr. Ramses Dumas UR MICRO IND INDICATED Normal [facility] Comment on above: Performed By: #### C BC #### [facility] [address] [place] [address] Dr. Ramses Dumas Urobilinogen Qn (U) 0.2 {Lucero'U}/dL Normal 0.2 - 1. 0 [facility] Comment on above: Performed By: #### C BC #### [facility] [address] [place] [address] Dr. Ramses Dumas ETHANOL (BLD ALC)on 08-13-20 ALC NOTE NOTE: 80 mg/dl is th e legal limit for a blood alcohol level Normal [facility] Comment on above: Performed By: #### B LDCX2 #### [facility] [address] [place] [address] Dr. Ramses Dumas Ethanol [Mass/Vol] mg/dL Normal [facility] Comment on above: Performed By: #### B LDCX2 #### [facility] [address] [place] [address] Dr. Ramses Dumas URon 08-13-2022 , QUAL Negative Normal NEGATIVE [facility] Comment on above: Performed By: #### C BC #### [facility] [address] [place] [address] Dr. Ramses Dumas PROF 14(COMP METB)on 022 Albumin [Mass/Vol] 3.8 g/dL Normal 3.4-5.0 [facility] Comment on above: Performed By: #### U RCX #### [facility] [address] [place] [address] Dr. Ramses Dumas Albumin/Globulin [Mass ratio] 0.9 {ratio} Normal [facility] Comment on above: Performed By: #### U RCX #### [facility] [address] [place] [address] Dr. Ramses Dumas ALP [Catalytic activity/Vol] 82 U/L Normal 46-116 [facility] Comment on above: Performed By: #### U RCX #### [facility] [address] [place] [address] Dr. Ramses Dumas ALT [Catalytic activity/Vol] 41 U/L Normal 14-59 [facility] Comment on above: Performed By: #### U RCX #### [facility] [address] [place] [address] Dr. Ramses Dumas Anion gap [Moles/Vol] 9.3 mmol/L Normal [facility] Comment on above: Performed By: #### U RCX #### [facility] [address] [place] [address] Dr. Ramses Dumas AST [Catalytic activity/Vol] 21 U/L Normal 15-37 [facility] Comment on above: Performed By: #### U RCX #### [facility] [address] [place] [address] Dr. Ramses Dumas Bilirubin [Mass/Vol] 0.3 mg/dL Normal 0.2-1.0 [facility] Comment on above: Performed By: #### U RCX #### [facility] [address] [place] [address] Dr. Ramses Dumas Calcium [Mass/Vol] 8.9 mg/dL Normal 8.5-10.1 [facility] Comment on above: Performed By: #### U RCX #### [facility] [address] [address] [address] Ramses Dumas Chloride [Moles/Vol] 105 mmol/L Normal 98-107 [facility] Comment on above: Performed By: #### U RCX #### [facility] [address] [address] [address] Ramses Dumas CO2 [Moles/Vol] 28.5 mmol/L Normal 21.0-32.0 [facility] Comment on above: Performed By: #### U RCX #### [facility] [address] [address] [address] Ramses Dumas Creatinine [Mass/Vol] 0.81 mg/dL Normal 0.55-1.02 [facility] Comment on above: Performed By: #### U RCX #### [facility] [address] [place] [address] Dr. Ramses Dumas EGFR-AF [place]OV[place] >60 Normal >=60 [facility] Comment on above: Performed By: #### U RCX #### [facility] [address] [address] [address] Ramses Dumas EGFR-NON AF [place] >60 Normal >=60 [facility] Comment on above: Performed By: #### U RCX #### [facility] [address] [address] [address] Ramsse Dumas Globulin (S) [Mass/Vol] 4.1 g/dL Normal [facility] Comment on above: Performed By: #### U RCX #### [facility] [address] [address] [address] Ramses Dumas Glucose [Mass/Vol] 100 mg/dL Normal 74-106 [facility] Comment on above: Performed By: #### U RCX #### [facility] [address] [address] [address] Ramses Dumas Potassium [Moles/Vol] 3.8 mmol/L Normal 3.5-5.1 [facility] Comment on above: Performed By: #### U RCX #### [facility] [address] [address] [address] Ramses Dumas Protein [Mass/Vol] 7.9 g/dL Normal 6.4-8.2 [facility] Comment on above: Performed By: #### U RCX #### [facility] [address] [place] [address] Dr. Ramses Dumas Sodium [Moles/Vol] 139 mmol/L Normal 136-145 [facility] Comment on above: Performed By: #### U RCX #### [facility] [address] [place] [address] Dr. Ramses Dumas Urea nitrogen [Mass/Vol] 10.0 mg/dL Normal 7.0-18.0 [facility] Comment on above: Performed By: #### U RCX #### [facility] [address] [place] [address] Dr. Ramses Dumas Urea nitrogen/Creatinine [Mass ratio] 12.3 mg/mg Normal [facility] Comment on above: Performed By: #### U RCX #### [facility] [address] [place] [address] Dr. Ramses Dumas SALICYLATEon 08-13-2022 SALICYLATE <2.8 Normal <=19.9 [facility] Comment on above: Performed By: #### U RCX #### [facility] [address] [place] [address] Dr. Ramses Dumas URINE MICROSCOPIC ONLYon BACTERIA LARGE Abnormal NONE SEEN [facility] Comment on above: Performed By: #### C BC #### [facility] [address] [place] [address] Dr. Ramses Dumas Bacteria identified Cx Nom (U) INDICATED Normal [facility] Comment on above: Performed By: #### C BC #### [facility] [address] [place] [address] Dr. Ramses Dumas CA OX CRYSTALS RARE Normal [facility] Comment on above: Performed By: #### C BC #### [facility] [address] [place] [address] Dr. Ramses Dumas CAST NONE SEEN Normal NONE SEEN [facility] Comment on above: Performed By: #### C BC #### [facility] [address] [place] [address] Dr. Ramses Dumas Crystals LM Nom (Urine sed) SEEN Abnormal NONE SEEN [facility] Comment on above: Performed By: #### C BC #### [facility] [address] [address] [address] Ramses Dumas Epithelial cells LM Ql (Urine sed) MODERATE Abnormal NONE SEEN /RARE [facility] Comment on above: Performed By: #### C BC #### [facility] [address] [place] [address] Dr. Ramses Dumas MUCOUS NONE SEEN Normal NONE SEEN [facility] Comment on above: Performed By: #### C BC #### [facility] [address] [place] [address] Dr. Ramses Dumas RBC 10-20 Abnormal 0-2 [facility] Comment on above: Performed By: #### C BC #### [facility] [address] [place] [address] Dr. Ramses Dumas WBC 20-50 Abnormal NONE SEEN [facility] Comment on above: Performed By: #### C BC #### [facility] [address] [place] [address] Dr. Ramses Dumas Pap IG,rfx Aptima HPV all pt hon 08-09-2022 . . Normal [facility] Comment on above: Performed By: #### C MP #### [facility] [address] [place] [address] Dr. Ramses Dumas DIAGNOSIS: Comment Abnormal [facility] Comment on above: Result Comment: EPIT HELIAL CELL ABNORMALITY. LOW GRADE SQUAMOUS INTRAEPITHELIAL LESION (LSIL). Performed By: #### C MP #### [facility] [address] [place] [address] Dr. Ramses Dumas Electronically signed by: Comment Normal [facility] Comment on above: Result Comment: Arnaud Joseph MD, Pathologist Performed By: #### C MP #### [facility] [address] [place] [address] Dr. Ramses Dumas HPV Aptima Negative Normal Negative [facility] Comment on above: Result Comment: This nucleic acid amplification test detects fourteen high-risk HPV types (16,18,31,33,35,39,45,51,52,56,58,59,66,68) without differentiation. Performed By: #### C MP #### [facility] [address] [place] [address] Dr. Ramses Dumas Methodology: Comment [facility] Comment on above: Result Comment: This liquid based ThinPrep(R) pap test was screened with the use of an image guided system. Performed By: #### C MP #### [facility] [address] [place] [address] Dr. Ramses Dumas Note: Comment Normal [facility] Comment on above: Result Comment: The Pap smear is a screening test designed to aid in the detection of premalignant and malignant conditions of the uterine cervix. It is not a diagnostic procedure and should not be used as the sole means of detecting cervical cancer. Both false-positive and false-negative reports do occur. . Performed By: #### C MP #### [facility] [address] [place] [address] Dr. Ramses Dumas Pathologist Provided ICD10 Comment [facility] Comment on above: Result Comment: [id number] Performed By: #### C MP #### [facility] [address] [place] [address] Dr. Ramses Dumas Performed by: Comment Normal [facility] Comment on above: Result Comment: Gail Ruano, Dialysis Clinical Manager (ASCP) Performed By: #### C MP #### [facility] [address] [place] [address] Dr. Ramses Dumas Reflex Criteria: Comment Normal [facility] Comment on above: Result Comment: See below for HPV testing results. . Performed By: #### C MP #### [facility] [address] [place], [place] [id number] Dr. Ramses Dumas Specimen adequacy: Comment Normal [facility] Comment on above: Result Comment: Sati sfactory for evaluation. Endocervical and/or squamous metaplastic cells (endocervical component) are present. Performed By: #### C MP #### [facility] [address] [address] [address] Ramses Dumas Vital Signs Date Time Vital Sign Value Performing Clinician Ronnie perez 04-10-2024 07:30-0400 Body temperature 98 [degF] MD Domingo Das Work Phone: [facility] 04-10-2024 07:30-0400 Diastolic blood pressure 73 mm[Hg] MD Domingo Das Work Phone: [facility] 04-10-2024 07:30-0400 Heart rate 75 /min MD Domingo Das Work Phone: [facility] 04-10-2024 07:30-0400 Respiratory rate 16 /min MD Domingo Das Work Phone: [facility] 04-10-2024 07:30-0400 SaO2% (BldA) [Mass fraction] 100 % MD Domingo Das Work Phone: [facility] 04-10-2024 07:30-0400 Systolic blood pressure 123 mm[Hg] MD Domingo Das Work Phone: [facility] 04-08-2024 22:44-0400 Body height 167.64 cm MD Domingo Das Work Phone: [facility] 04-08-2024 22:44-0400 Body weight 86.58 kg MD Domingo Das Work Phone: [facility] 03-20-2023 10:30-0400 Blood Pressure Location [facility] 03-20-2023 10:30-0400 Diastolic blood pressure 73 mm[Hg] [facility] [facility] 03-20-2023 10:30-0400 Heart rate 80 /min Nona VILLA [facility] 03-20-2023 10:30-0400 Respiratory rate 16 /min Nona VILLA [facility] 03-20-2023 10:30-0400 Systolic blood pressure 128 mm[Hg] Nona IDALMIS [facility] Encounters Encounter Date Encounter Type Care Provider Facility Start: 04-09-2024 Non-patient / Non-visit MD Vicente Das Work Phone: [facility] Work Phone: Start: 04-08-2024 End: 04-10-2024 Evaluation and management of inpatient MD Domingo Das Work Phone: [address] Work Phone: Start: 04-08-2024 ambulatory Domingo Das Facility: [facility] Start: 12-29-2023 End: 12-29-2023 ambulatory [place] Facility:[facility] Start: 12-17-2023 End: 12-17-2023 ambulatory CELIO VAN Not Available Start: 12-04-2023 End: 12-05-2023 ambulatory Nona VILLA Facility:[facility] Start: 12-04-2023 End: 12-04-2023 Patient encounter procedure Nona VILLA [facility] Start: 04-09-2023 End: 04-10-2023 ambulatory Nona VILLA Facility:CD:[id number] Start: 03-20-2023 End: 03-21-2023 ambulatory Nona VILLA Facility:[facility] Start: 03-20-2023 End: 03-20-2023 Patient encounter procedure Nona VILLA [facility] Start: 02-16-2023 End: 02-16-[address] DOMINGO DAS . Facility: Start: 02-02-2023 End: 02-02-[address] DOMINGO DAS . Facility: Start: 12-26-2022 End: 12-27-2022 ambulatory Noan VILLA Facility:[facility] Start: 12-26-2022 End: 12-26-2022 Patient encounter procedure Nona VILLA [facility] Start: 12-16-2022 End: 12-17-[address] NONA VILLA . Facility:[facility] Start: 12-15-2022 End: 12-16-[address] NONA VILLA . Facility:[facility] Start: 11-27-[address] DOMINGO DAS . Facili ty:[facility] Start: 11-07-2022 End: 11-07-[address] DOMINGO DAS . Facility: Start: 11-04-2022 Encounter for preprocedural cardiovascular examination DR JEFFERSON GIBBS . [facility] Start: 11-04-2022 Encounter for preprocedural laboratory examination DR JEFFERSON GIBBS . [facility] Start: 11-03-2022 End: 11-04-2022 Encounter for preprocedural cardiovascular examination DR DOMINGO DAS . Facility:[facility] Start: 11-03-2022 End: 11-04-[address] DOMINGO DAS . Facility: Start: 09-20-2022 Encounter for preprocedural laboratory examination DR NONA VILLA . [facility] Start: 09-18-2022 End: 09-18-[address] NONA VILLA . Facility:[facility] Start: 09-16-2022 End: 09-17-[address] NONA VILLA . Facility: Start: 09-16-2022 End: 09-17-2022 Encounter for preprocedural laboratory examination DR NONA VILLA . Facility:[facility] Start: 09-05-2022 End: 09-05-2022 ambulatory ORA BOND . Facility:[facility] Start: 09-04-2022 End: 09-04-2022 ambulatory DANIEL SANTIAGO Facility:[facility] Start: 09-04-2022 End: 09-04-2022 ambulatory Daniel Santiago REAMING MACHINE TENDER.PREMIUM SERVICE REPRESENTATIVE Work Phone: Urology Comment on above: NO SHOW (Primary Dx) Start: 09-04-2022 End: 09-04-2022 Telemedicine consultation with patient Daniel Santiago KONSTANTIN.PREMIUM SERVICE REPRESENTATIVE Work Phone: [facility] Start: 08-28-2022 End: 08-29-[address] ERWIN MOORE Facility:[facility] Start: 08-22-2022 End: 08-24-[address] DOMINGO DAS . Facility:[facility] Start: 08-13-2022 End: 08-13-2022 ambulatory ORA BOND . Facility:[facility] Start: 07-31-2022 Encounter for cervic al smear to confirm findings of recent normal smear following initial abnormal smear DR JEFFERSON GIBBS . [facility] Start: 07-30-2022 End: 07-30-[address] DOMINGO DAS . Facility:[facility] Start: 07-30-2022 End: 07-30-2022 Encounter for cervical smear to confirm findings of recent normal smear following initial abnormal smear DR DOMINGO DAS . Facility:[facility] Start: 07-02-2022 End: 07-03-[address] DMOINGO DAS . Facility:[facility] Procedures Date Procedure Procedure [...] Date Care Activity Detail Author Start: 04-10-2024 [facility] Start: 06-21-2024 Referral to Outside Residential Sales Professional [facility] Start: 04-08-2024 Hospital admission [facility] Start: 04-08-2024 [facility] Start: 06-19-2022 Influenza vaccination INFLUENZA (#1) [facility] Start: 10-19-2021 DEPRESSION ASSESSMENT DEPRESSION ASSESSMENT [facility] Start: 2021 HPV TESTING HPV TESTING [facility] Start: 2012 PAP TESTING PAP TESTING [facility] Start: 2010 Urine microalbumin profile DTAP,TDAP,TD (1 - Tdap) [facility] Start: 2009 HEPATITIS C SCREENING HEPATITIS C SCREENING [facility] Start: 2009 HIV SCREENING HIV SCREENING [facility] Start: 03-14-1992 COVID-19 VACCINE (#1) COVID-19 VACCINE (#1) [facility] Start: 1991 HEPATITIS B (1 of 3 - 3-dose series) HEPATITIS B (1 of 3 - 3-dose series) [facility] Patient Education Bipolar Disord er (DC) [facility] DC Instructions Know your Meds [facility] Work Phone: Patient referral [facility] Work Phone: Immunizations Immunization Date Immunization Notes Care Provider Beata moore 08-01-2019 influenza virus vaccine, unspecified formulation Nona VILLA [facility] 08-09-2018 tetanus toxoid, redu franco diphtheria toxoid, and acellular pertussis vaccine, adsorbed Nona VILLA [facility] 08-08-2018 influenza virus vaccine, unspecified formulation Nona VILLA [facility] 06-19-2004 hepatitis B vaccine, pediatric or pediatric/adolescent dosage Nona VILLA [facility] 03-27-2004 hepatitis B vaccine, pediatric or pediatric/adolescent dosage Nona VILLA [facility] 12-18-2003 hepatitis B vaccine, pediatric or pediatric/adolescent dosage Nona VILLA [facility] 12-18-2003 measles, mumps and rubella virus vaccine Nona VILLA [facility] 04-10-1993 DTaP, unspecified formulation Nona [employer] [facility] 04-10-1993 poliovirus vaccine, unspecified formulation Nona [employer] [facility] 12-28-1992 Hib, unspecified formulation Nona [employer] [facility] 12-28-1992 measles, mumps and rubella virus vaccine Nona VILLA [facility] 03-26-1992 Hib, unspecified formulation Nona [employer] [facility] 01-18-1992 Hib, unspecified formulation Nona VILLA [facility] 1991 Hib, unspecified formulation Nona VILLA [facility] Payers Date Payer Category Payer Self-pay 2021 Medicaid [place] [employer] TERM 09/17 [employer] [employer] [id number] 2021-Present [phone] [address] [place] [address] Medicaid [id number] 1991 Unknown [id number] 2.16.840.1.855612.3.579.2.593 1991 Unknown [id number] 2.16.840.1.283779.3.579.2.593 1991 Unknown [id number] 2.16.840.1.794130.3.579.2.593 1991 Unknown [id number] 2.16.840.1.181693.3.579.2.593 1991 Unknown [id number] 2.16.840.1.972152.3.579.2.593 1991 Unknown [id number] 2.16.840.1.049828.3.579.2.593 1991 Unknown [id number] 2.16.840.1.735695.3.579.2.593 1991 Unknown [id number] 2.16.840.1.731200.3.579.2.593 1991 Unknown [id number] 2.16.840.1.411789.3.579.2.593 1991 Unknown [id number] 2.16.840.1.459899.3.579.2.593 1991 Unknown [id number] 2.16.840.1.638451.3.579.2.593 1991 Unknown [id number] 2.16.840.1.968035.3.579.2.593 1991 Unknown [id number] 2.16.840.1.419251.3.579.2.593 1991 Unknown [id number] 2.16.840.1.467777.3.579.2.593 1991 Unknown [id number] 2.16.840.1.325517.3.579.2.593 1991 Unknown [id number] 2.16.840.1.116151.3.579.2.593 1991 Unknown [id number] 2.16.840.1.002171.3.579.2.727 1991 Unknown [id number] 2.16.840.1.697502.3.579.2.727 1991 Unknown [id number] 2.16.840.1.860312.3.579.2.727 1991 Unknown [id number] 2.16.840.1.318960.3.579.2.727 1991 Unknown [id number] 2.16.840.1.528141.3.579.2.1259 1959 Medicaid [id number] 1959 Self-pay [id number] 1959 Unknown [id number] Unknown [id number] 2.16.840.1.347350.3.579.2.531 Unknown [id number] 2.16.840.1.108723.3.579.2.531 Unknown [id number] 2.16.840.1.187539.3.579.2.531 Social History Date Type Detail Facility Tobacco smoking status INIS Tobacco smoking consumption unknown [facility] Start: 1991 Sex Assigned At Not on file [facility] Start: 08-20-2021 End: 04-09-2024 Tobacco smoking status Never smoked tobacco (finding) [facility] Tobacco smoking status Never [facility] Sex Assigned At Female [facility] Start: 1991 Sex Assigned At Female [facility] Goals Date Patient Goal Desired Activity /State Functional Status Date Assessment Result Facility 04-10-2024 Functional status Patient at [facility] Work Phone: 03-20-2023 Functional Status N/A [facility] Mental Status Date Assessment Result Facility 04-10-2024 Cognitive function Cognitive Sta tus Patient at Baseline [facility] Work Phone: Clinical Notes 07-03-2022 to 04-10-2024 Note Date & Type Note Facility 04-10-2024 Discharge summary Note Date/Time April 10, 2024 7:10am [facility] [address] [place] [address] Discharge Summary Signed Patient: Diana Barriga MR#: [id number] : 1990 Acct:[id number] Age/Sex: 33 / F Adm Date: 4 Loc: 1S Room: 8M1580-[address]: Arnulfo Aviles MD Copies to: [...] Dr. Fenton but wants to switch to [place]. Along with this patient is in marriage counseling with her current and that today's session was not good. Patient stated she needs to be home to take care of her kids, the custody [place], and her marriage. Patient upset because she missed her son's play and has plans to take kids to [place] tomorrow. Patient denies any suicidal ideation denies hallucinations denies racing thoughts. Patient reports that there is no changes in her appetite or sleep. Patient reports that she feels fine. She has tried a lot of medications in the past and believes none of them have worked. He is going to [place] for psych therapy. He wants to try [...] She has an appointment coming up with [facility]. She deniedrecent suicide attempts or self [...] Restriction Diet: Regular Instructions: Bipolar Disorder (DC), [facility] DC Instructions, Know your Meds [...] signed by Arnulfo Aviles MD> 04/10/24 0929 [facility] Work Phone: 1(849) 935-614006-22-2024 History and physical note Author Arnulfo ornelas [facility] April 09, 2024 9:09am Note Date/Time April 09, 2024 8:43 am [facility] [address] [place] [address] Psychiatry H&P Signed Patient: Diana Barriga MR#: [id number] : 1990 Acct:[id number] Age/Sex: 33 / F Adm Date: 4 Loc: Room: [address] [place] [address] Type: ADM IN Attending Dr: Arnulfo Aviles [...] Dr. Fenton but wants to switch to [place]. Along with this patient is in marriage counseling with her current and that today's session was not good. Patient stated she needs to be home to take care of her kids, the custody [place], and her marriage. Patient upset because she missed her son's play and has plans to take kids to [place] tomorrow. Patient denies any suicidal ideation denies hallucinations denies racing thoughts. Patient reports that there is no changes in her appetite or sleep. Patient reports that she feels fine. She has tried a lot of medications in the past and believes none of them have worked. He is going to [place] for psych therapy. He wants to try therapy before any medications. 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 Review of symptoms: Constitutional: Denies chills [...] homicidally, denies suicidality Insight: Intact Judgment: Intact [facility] Medical History (Updated 08/14/22 @ [...] signed by Arnulfo Aviles MD> 04/09/24 0909 [facility] Work Phone: 1(720) 790-151706-02-2023 Hospital Discharge instructions Follow Up Care 03/20/2023 11:51:58 With:IDALMIS BORDEN, Nona Turner, URL Address: [address] [place] [address]- When: Unknown [facility] 06-02-2023 Hospital Discharge instructions Patient Education [...] include: ?8 oz (237 mL) of milk, kssubuk-xqyyzpdwydrd-tkuey milk, and calcium- fortifiedfruit juice. Calcium-fortified means [...] ?Spinach (cooked), rhubarb, beets, sweet potatoes, and Solomon Islander chard. ?Peanuts. ?Potato chips, tunisian fries, and baked potatoes with skin on. ?Nuts and nut products. ?Chocolate. If you regularly take a diuretic medicine, make sure to eat at least 1 or 2 servings of fruits or vegetables that are high in potassium each day. These include: ?Avocado. ?Banana. ?[place], prune, carrot, or tomato juice. ?Baked potato. [...] magnesium, fish oil, or vitamin B6. Take hbly-cnw-jhrjawt and prescription medicines only as told by [...] Casseroles. Pizza. Lasagna. Frozen meals. Potato chips. Georgian fries. The items listed above may not [...] provider. Document Revised: 06/16/2022 Document Reviewed: 06/16/2022 [employer] Patient Education 2022 [employer] Follow Up Care 12/26/2022 08:46:46 With:IDALMIS BORDEN, Nona Turner, URL Address: [facility] [address] [place] [address]- When: Unknown [facility]23 NoteOPERATIVE NOTE OPERATION DATE: 11/07/2022 PROCEDURE: Mery endometrial ablation with LEEP. PREOPERATIVE DIAGNOSIS: Cervical dysplasia, menorrhagia. POSTOPERATIVE DIAGNOSIS: Cervical dysplasia, menorrhagia. ANESTHESIA: General. SURGEON: Jefferson Gibbs D.O. CUSTOMER ENGINEER: None. BLOOD LOSS: 50 mL. URINE [...] taken to Recovery Room in stable condition.[id number] Discharge instructions Follow Up Care 09/25/2022 13:54:04 With:IDALMIS BORDEN, Nona Turner, URL Address: [address] [place], [place] [id number]- When: Unknown [facility] 12-01-2022 NoteOPERATIVE NOTE OPERATION DATE: 09/18/2022 [...] usual fashion. I started by passing a 22-Georgian Olympus cystoscope per urethra and into the [...] and wheeled to PACU in stable condition.[id number] NoteHNO ID: [id number] Author: Daniel Santiago APRN.WAYNE Service: ? Author Type: Nurse Practitioner Type: Progress Notes Filed: 09/04/2022 7:46 AM Note Text: The patient did not show up for this appointment. The patient did not show up for this appointment.[id number] History of Present illness Narrative* Daniel Santiago APRN.WAYNE - 09/04/2022 7:40 AM EST The patient did not show up for this appointment. The patient did not show up for this appointment. [facility] NotePROCEDURE: XR ANKLE LT MIN 3 V COMPARISON: None. HISTORY: Sprain of calcaneofibular ligament FINDINGS: BONES:No fracture, acute abnormality, or significant arthropathy. SOFT TISSUES:Extensive lateral soft tissue swelling EFFUSION:None visible. OTHER: Negative. IMPRESSION: Lateral soft tissue swelling. No acute fracture Electronically authenticated by: GLEN GRAFF Date: 2022-07-03 07:09[facility] Future Appointments Appointment Date:03/20/2023 10:15:00 AM Scheduled Provider:Nona VILLA MD Location:[facility] Appointment Type:URO Office Visit [facility] evaluation + Plan note Future Appointments Appointment Date:12/04/2023 09:45:00 AM Scheduled Provider:Nona VILLA MD Location:[facility] Appointment Type:URO Office Visit Diagnostic Tests Pending * Electrolyte Panel 03/20/23 [facility] evalglcyls note* Diagnosis NO SHOW- Primary documented in this encounter [facility] note* Diagnosis Onset Date Resolution Status Bipolar disorder acute [facility] Work Phone: Hospital course Narrative No data available for this section [facility] progress note No data available for this section [facility] Summary Purpose Family History No Family [...] drug abuse patient.[facility] Reason for Visit (unrecogniz ed section and content) Reason Onset Date Comments No Show 09/04/2022 No show Care Teams (unrecognized sec tion and content) Machine Try Out Setter Relationship Specialty Start Date End Date Domingo Das MD [address] [place] [address] Referring Family Medicine 09/01/22 Team Status: Active [...] section and content) DATE CREATED AUTHOR 09/06/2022 [facility] DATE CREATED AUTHOR AUTHOR'S ORGANIZ ATION 02/19/2023 [facility] DATE CREATED AUTHOR AUTHOR'S ORGANIZ ATION 12/06/2023 [facility] DATE CREATED AUTHOR AUTHOR'S ORGANIZ ATION 12/19/2023 [facility] dical Specialists [facility] DATE CREATED AUTHOR AUTHOR'S ORGANIZ ATION 07/22/2024 [facility] FOR [...] BE BASED ON THE PRIMARY CLINICAL RECORDS. [facility]. provides no warranty or guarantee of the accuracy or completeness of information in this document.
[2024-09-30 15:39] VITALS: BP 106/72; PULSE 80; TEMP 36.6; O2SAT 96
[2024-09-30] MEDS: 0.9 % SODIUM CHLORIDE 1,000 ML 1000 ML IV (15:58)
== END 2024-09-30 17:00 | disposition home or self-care (01) ==
LOC: MS 14:40
PROVIDERS: PCP Family Medicine; Visit Provider Family Medicine
DX: N20.0 Calculus of kidney (principal)

== ENCOUNTER 2024-10-02 06:32 | Emergency (ER) | payer OTHER, SELFPAY ==
--- OUTSIDE RECORDS SUMMARY | 2024-10-02 06:37 | XMS_ITS | CCD ---
Author Organization [facility] CliniSymi Care Team Providers Care Health Clinician Name Role Phone Domingo Das MD Unavailable [...] HOY ., DR LANE Primary Care Unavailable BRENIE ., DR TOLBERT Admitting Unavailable BERNIE ., DR TOLBERT Attending Unavailable BERNIE ., DR TOLBERT Consulting Unavailable BALWINDER DUNAWAY Consulting Unavailable MILTON VARAM Consulting Unavailable VILLA ., DR CASTELLANO Admitting [...] Unavailable MD Domingo Das Primary Care Provider [phone] MD Arnulfo Aviles Admit Provider MD Arnulfo Aviles Attending Provider [phone] Domingo Das Primary Care Unavailable Arnulfo Aviles Attending Unavailab Arnulfo Forerst Admitting Unavailab Glen Jones V Attending Unavailable [...] 13, 2022 12:00am August 16, 2022 11:38am [place] (No Known Home Meds) (1 source) Start: 04-08-2024 [place] (No Kn own Home Meds) Active April [...] BID, # 30 tab(s), Refills(s) 3, Pharmacy: 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; Translations: [...] 04-09-2024 Cholesterol [Mass/Vol] 150 mg/dL Normal 140-200 [facility] Comment on above: Chol less than 200 m g/dl low riskChol 201-239 mg/dl borderline riskChol 240 mg/dl and greater high risk Result Comment: Chol less than 200 mg/dl low risk Chol 201-239 mg/dl borderline risk Chol 240 mg/dl and greater high risk Performed By: #### L IPID, TSH3 wRFLX, [id number] #### [address] Cholesterol in LDL Calc [Mas s/Vol]Ordered By: Arnulfo Aviles on 04-09-2024 Cholesterol in LDL [Mass/Vol] 90 mg/dL 0-100 [facility] Comment on above: LDL ATP III CLASSIFI CATIONLDL less than 100 mg/dL OptimalLDL 100-129 mg/dL Near or above optimalLDL 130-159 mg/dL Borderline highLDL 160-189 mg/dL HighLDL greater than 189 mg/dL Very high Cholesterol in VLDL Calc [Ma ss/Vol]Ordered By: Arnulfo Aviles on 04-09-2024 Cholesterol in VLDL [Mass/Vol] 16 mg/dL [facility] ECG 12 lead ECGon 04-09-2024 ECG 12 lead ECG [facility] [place] [address] [place] [address] Electrocardiograph Report Signed Patient: Diana Barriga MR#: [id number] : 1990 Acct:[id number] Age/Sex: 33 / F ADM Date: 04/08/24 Loc: Room: 5D4483-3 Type: ADM IN Attending Dr: Arnulfo Aviles [...] previous ECGs available Confirmed by [id number] on 04/09/2024 3:21:42 PM Referred By: Electronically Signed By:NONA CHAWLA MD, FACC Transcribed By: MUS Signed By Lg Chawla MD 04/09/24 1521 Normal [facility] Lipid Panelon 04-09-2024 LDL Cholesterol,Calculated 90 mg/dL Normal 0-100 [facility] Comment on above: Result Comment: LDL ATP III CLASSIFICATION LDL less than 100 mg/dL Optimal LDL 100-129 mg/dL Near or above optimal LDL 130-159 mg/dL Borderline high LDL 160-189 mg/dL High LDL greater than 189 mg/dL Very high Performed By: #### L IPID, TSH3 wRFLX, [id number] #### [address] Triglyceride w/Reflex 82 mg/dL Normal 0-149 [facility] Comment on above: Result Comment: TRIG ATP III CLASSIFICATION TRIG less than 150 mg/dL Normal TRIG 150-199 mg/dL Borderline high TRIG 200-500 mg/dL High TRIG greater than 500 mg/dL Very high Standard traceable to the Center for Disease Conrtrol and Prevention (CDC) test method. Performed By: #### L IPID, TSH3 wRFLX, [id number] #### [place] [id number] [facility] VLDL CHOLESTEROL 16 mg/dL Normal [facility] Comment on above: Performed By: #### L IPID, TSH3 wRFLX, [id number] #### [facility] [address] Serum or plasma high density lipoprotein (HDL) cholesterol measurementOrdered By: Arnulfo Aviles on 04-09-2024 Cholesterol in HDL [Mass/Vol] 44 mg/dL Normal 23-92 [facility] Comment on above: HDL CHOL ATP-III CLA SSIFICATION Cardiovascular RiskHDL > or equal to 60 mg/dL LOWHDL < 40 mg/dL HIGH Result Comment: HDL CHOL ATP-III CLASSIFICATION Cardiovascular Risk HDL > or equal to 60 mg/dL LOW HDL < 40 mg/dL HIGH Performed By: #### L IPID, TSH3 wRFLX, [id number] #### [facility] [address] [place] [address] Serum or plasma total choles terol/high density lipoprotein (HDL) cholesterol mass ratOrdered By: Arnulfo Aviles on 04-09-2024 Cholesterol.total/Chol esterol in HDL [Mass ratio] 3.4 {ratio} Normal <5.0 [facility] Comment on above: Performed By: #### L IPID, TSH3 wRFLX, [id number] #### [facility] [address] [place] [address] Thyroid Stim Hormone w/Rflxo n 04-09-2024 Thyroid Stim Hormone w/Rflx 2.01 u[iU]/mL Normal 0.45-5.33 [facility] Comment on above: Performed By: #### L IPID, TSH3 wRFLX, [id number] #### [facility] [address] [place] [address] Thyrotropin [Units/volume] i n Serum or PlasmaOrdered By: Arnulfo Aviles on 04-09-2024 TSH Qn 2.01 m[IU]/L 0.45-5.33 [facility] Triglyceride [Mass/volume] i n Serum or PlasmaOrdered By: Arnulfo Aviles on 04-09-2024 Triglyceride [Mass/Vol] 82 mg/dL 0-149 [facility] Comment on above: TRIG ATP III CLASSIF ICATIONTRIG less than 150 mg/dL NormalTRIG 150-199 mg/dL Borderline highTRIG 200-500 mg/dL High TRIG greater than 500 mg/dL Very highStandard traceable to the Center for Disease Conrtrol and Prevention (CDC) test method. Vitamin D 25 Hydroxy Totalon 04-09-2024 Vitamin D 25 Hydroxy Total 26.2 ng/mL Low 30-100 [facility] Comment on above: Result Comment: THA MIN D STATUS 25(OH)VITAMIN D RANGE (ng/mL) Deficient <20 Insufficient 20 to <30 Sufficient 30 to 100 Reference: Jennifer Tiwari, Mady MARTI, et al. Evaluation,treatment, and prevention of vitamin D deficiency; an Endocrine Society clinical practice guideline. JCEM. 2010; 96(7):1911-30. PERFORMED BY: [facility] [address] [place] [address] PATHOLOGIST ERP IMPLEMENTATION CONSULTANT AB ALCANTARA M.D. Performed By: #### L IPID, TSH3 wRFLX, [id number] #### [facility] [address] Vitamin D+Metabolites [Mass/ volume] in Serum or PlasmaOrdered By: Arnulfo Aviles on 04-09-2024 Vitamin D+Metabolites [Mass/Vol] 26.2 ng/mL 30-100 [facility] Comment on above: VITAMIN D STATUS 25( [place])VITAMIN D RANGE (ng/mL) Deficient <20 Insufficient 20 to <30Sufficient 30 to 100Reference: Jennifer Tiwari, Mady MARTI, et al. Evaluation,treatment, and prevention of vitamin D deficiency; an Endocrine Society clinical practice guideline. JCEM. 2010; 96(7):1911-30. Axel 12-29-2023 L Specimen: [id number] Received: 12/29/23 Status: DAQUAN Moon Num: [id number] Spec Type: Surgical Subm Dr: Glen Graff MD Tissues: A BREAST CORE NO CALCS (LT BREAST 6:00) Procedures: PAS - LGRN, HE/2, Gross/Micro L4, AE1-AE3, CD68 Age/ Patient Sex Location Account Attending Physician Diana Barriga 33/F LABELL [id number] Glen Graff MD SPEC NUM: [id number] RECD: 12/29/23 STATUS: DAQUAN NOLENDarvin NUM: [id number] KELBY: 12/29/23 DR: Glen Graff MD ENTERED: [...] AM 12/29/2023, time out of ---- Specimen: [id number] Received: 12/29/23 Status: DAQUAN Red Num: [id number] Spec Type: Surgical Subm Dr: Glen Graff MD Tissues: A BREAST CORE NO CALCS (LT BREAST 6:00) Procedures: PAS - ELLIS, HE/2, Gross/Micro L4, AE1-AE3, CD68 ---- Patient: Diana Barriga Boogie [id number] (Continued) ---- Specimen: [id number] Received: 12/29/23 (Continued) Gross Description (Continued) Signed (signature on file) Swathi Dumas MD 12/30/23 1834 ---- Specimen: [id number] Received: 12/29/23 Status: DAQUAN Moon Num: [id number] Spec Type: Surgical Subm Dr: Glen Graff MD Tissues: A BREAST CORE NO CALCS (LT BREAST 6:00) Procedures: PAS - LELIS, HE/2, Gross/Micro L4, AE1-AE3, CD68 ---- Patient: Diana Barriga [id number] (Continued) ---- Specimen: [id number] Received: 12/29/23 (Continued) Gross Description (Continued) formalin: 6 PM 12/29/2023. Cold Ischemia and Fixation Time meets the requirements specified in the latest version of the ASCO/CAP guidelines: Yes. Cold Ischemic Time: 0.03 Formalin Fixation Time: 9.85 CPT Codes 88316 94192 31998 94307 ---- ---- Specimen: [id number] Received: 12/29/23 Status: DAQUAN Moon Num: [id number] Spec Type: Surgical Subm Dr: Glen Graff MD Tissues: A BREAST CORE NO CALCS (LT BREAST 6:00) Procedures: FIONA CORRAL, HE/2, Gross/Micro L4, AE1-AE3, CD68 ---- Patient: Diana Barriga [id number] (Continued) ---- Signed (signature on file) Swathi Dumas MD 12/30/23 183 Normal [facility] Patient Letter FTon 2023 Patient Letter [facility] December 04, 2023 DIANA BARRIGA [address] [place] [id number] : 1990 Dear Diana, You missed your [...] any future cancellations. Sincerely, [facility] [address] [facility], [place] [address] [facility] Lab Reportson 06-05-2023 Lab Reports [id number]#1.0 0CD:127 [facility] Reminderson 04-24-2023 Reminders - From: Whitney [...] the pt with the results. duplicate message [facility] Operative Reporton Operative Report [id number]#1.00 CD:127 [facility] RAD - MISCon 04-10-2023 RAD - MISC [id number]#1.0 0CD:127 [facility] Lab Reportson 04-06-2023 Lab Reports [id number]#1.0 0CD:127 [facility] Lab Reports [id number]#1.0 0CD:127 [facility] Lab Reportson 03-23-2023 Lab Reports [id number]#1.0 0CD:127 [facility] Lab Reports [id number]#1.0 0CD:127 [facility] Lab Reports [id number]#1.0 0CD:127 [facility] RAD - CT Reporton 03-23-2023 RAD - CT Report [id number]#1.0 0CD:127 Normal [facility] RAD - CT Report [id number]#1.0 0CD:127 Normal [facility] Ambulatory Visit Summaryon 0 03-20-2023 Ambulatory Visit [...] Where: [facility] [address] [place] [address]- Medications What When Instructions Unchanged olanzapine-samidorphan (Lybalvi [...] ? 8 oz (237 mL) of milk, krbjmhg-fmcicrxnvxfe-a airy milk, and calcium-fortifiedfruit juice. Calcium-fortified means [...] handful of b (more content not included)... [facility] Consent for Procedure/Surger yon 03-20-2023 Consent for Procedure/Surgery [id number]#1.0 0CD:127 [facility] Patient Educationon 03-20-20 23 Patient Education [...] ? 8 oz (237 mL) of milk, wfsirwf-kzdwvraywpoa-d airy milk, and calcium-fortifiedfruit juice. Calcium-fortified means [...] Spinach (cooked), rhubarb, beets, sweet potatoes, and Chilean chard. ? Peanuts. ? Potato chips, macedonian fries, and baked potatoes with skin on. ? Nuts and nut products. ? Chocolate. ? If you regularly take a diuretic medicine, make sure to eat at least 1 or 2 servings of fruits or vegetables that are high in potassium each day. These include: ? Avocado. ? Banana. ? [place], prune, carrot, or tomato juice. ? Baked [...] fish oil, or vitamin B6. ? Take ddmv-jfd-ohnrcyw and prescription medicines only as told by your health care provider. These include supplements. What foods should I limit? Limit your in (more content not included)... Normal [facility] Urology Office/Clinic Noteon 03-20-2023 Urology Office/Clinic Note [...] Lt kidney pain. Did got to the [place] ER. DX'd & treated for UTI. (NEG [...] L. Ox slightly elevated. Pt presented to [facility] ER on 03/06/23 due to L kidney [...] mg qd. SEs discussed. Rx sent to [facility]. -Electrolyte panel 4 weeks to the day [...] With When Contact Information Nona VILLA MD, COUNTS INCLUDE 234 BEDS AT THE [facility] [address] [place] [address]- Additional Instructions: schedule R ESWL Patient Education [...] kidney s (more content not included)... Normal [facility] Comment on above: Result Comment: Elec tronically Signed By: Nona VILLA MD\.br\Date and Time Signed: 03/20/23 11:30 EDT\.br\Electronically Co-Signed By: Whitney Collier\.br\Date and Time Co-Signed: 03/20/23 11:28 EDT CBC AUTO DIFFon 02-16-2023 BASO # 0.1 103/ul Normal 0.0-0.1 [facility] Comment on above: Performed By: #### U KJ 24 #### [facility] [address] [place] [address] [address] Ramses Dumas Basophils/100 WBC (Bld) 0.5 % Normal 0.2-2.0 [facility] Comment on above: Performed By: #### U KJ 24 #### [facility] [address] [place] [address] [address] Ramses Dumas EO # 0.0 103/ul Normal 0.0-0.7 [facility] Comment on above: Performed By: #### U KJ 24 #### [facility] [address] [place] [address] [address] Ramses Dumas Eosinophils/100 WBC (Bld) 0.4 % Critically low 0.9-7.0 [facility] Comment on above: Performed By: #### U KJ 24 #### [facility] [address] [place] [address] Dr. Ramses Dumas Erythrocyte distribution width (RBC) [Ratio] 13.7 % Normal 11.0-15.0 [facility] Comment on above: Performed By: #### U KJ 24 #### [facility] [address] [place] [address] Dr. Ramses Dumas Hematocrit (Bld) [Volume fraction] 45.1 % Normal 36.0-48.0 [facility] Comment on above: Performed By: #### U KJ 24 #### [facility] [address] [place] [address] Dr. Ramses Dumas Hemoglobin (Bld) [Mass/Vol] 14.3 g/dL Normal 12.0-16.0 [facility] Comment on above: Performed By: #### U KJ 24 #### [facility] [address] [place] [address] Dr. Ramses Dumas IG # 0.02 10e3/ul Normal 0.00-0.03 [facility] Comment on above: Performed By: #### U KJ 24 #### [facility] [address] [place] [address] Dr. Ramses Dumas IG % 0.2 % Normal 0.0-0.5 [facility] Comment on above: Performed By: #### U KJ 24 #### [facility] [address] [place] [address] Dr. Ramses Dumas LYMPH # 2.5 103/ul Normal 1.2-3.8 [facility] Comment on above: Performed By: #### U KJ 24 #### [facility] [address] [place] [address] Dr. Ramses Dumas Lymphocytes/100 WBC (Bld) 26.4 % Normal 20.5-60.0 [facility] Comment on above: Performed By: #### U KJ 24 #### [facility] [address] [place] [address] Dr. Ramses Dumas MANUAL DIFF REQ NO Normal [facility] Comment on above: Performed By: #### U KJ 24 #### [facility] [address] [place] [address] Dr. Ramses Dumas MCH (RBC) [Entitic mass] 25.6 pg Critically low 26.7-34.0 [facility] Comment on above: Performed By: #### U KJ 24 #### [facility] [address] [place] [address] Dr. Ramses Dumas MCHC (RBC) [Mass/Vol] 31.7 g/dL Normal 29.9-35.2 [facility] Comment on above: Performed By: #### U KJ 24 #### [facility] [address] [place] [address] Dr. Ramses Dumas MCV (RBC) [Entitic vol] 80.7 fL Critically low 81.0-99.0 [facility] Comment on above: Performed By: #### U KJ 24 #### [facility] [address] [place] [address] Dr. Ramses Dumas MONO # 0.7 103/ul Normal 0.3-0.8 [facility] Comment on above: Performed By: #### U KJ 24 #### [facility] [address] [place] [address] Dr. Ramses Dumas Monocytes/100 WBC (Bld) 7.6 % Normal 1.7-12.0 [facility] Comment on above: Performed By: #### U KJ 24 #### [facility] [address] [place] [address] Dr. Ramses Dumas NEUT # 6.1 103/ul Normal 1.4-6.5 [facility] Comment on above: Performed By: #### U KJ 24 #### [facility] [address] [place] [address] Dr. Ramses Dumas Neutrophils/100 WBC (Bld) 64.9 % Normal 43.0-75.0 [facility] Comment on above: Performed By: #### U KJ 24 #### [facility] [address] [place] [address] Dr. Ramses Dumas Platelet mean volume (Bld) [Entitic vol] 11.0 fL Normal 9.5-13.5 [facility] Comment on above: Performed By: #### U KJ 24 #### [facility] [address] [place] [address] [address] Ramses Dumas PLT 270 103/ul Normal 150-450 [facility] Comment on above: Performed By: #### U KJ 24 #### [facility] [address] [place] [address] [address] Ramses Dumas RBC 5.59 106/ul Critically high 4.20-5.40 [facility] Comment on above: Performed By: #### U KJ 24 #### [facility] [address] [place] [address] [address] Ramses Dumas WBC 9.4 103/ul Normal 4.0-11.0 [facility] Comment on above: Performed By: #### U KJ 24 #### [facility] [address] [place] [address] ABD/PELV W CONon [...] by: FARTUN NOVOA Date: 2023-02-16 18:21 Normal [facility] ER URINE PROFILEon 3 Bilirubin Ql (U) SMALL Abnormal NEGATIVE [facility] Comment on above: Performed By: #### C MP #### [facility] [address] [place] [address] Dr. Ramses Dumas Clarity (U) CLEAR Normal CLEAR [facility] Comment on above: Performed By: #### C MP #### [facility] [address] [place] [address] Dr. Ramses Dumas Color (U) YELLOW Normal YELLOW [facility] Comment on above: Performed By: #### C MP #### [facility] [address] [place] [address] Dr. Ramses DELEON A micrscopic examination will be performed if indicated. Normal [facility] Comment on above: Performed By: #### C MP #### [facility] [address] [place] [address] Dr. Ramses Dumas Glucose Ql (U) Negative Normal NEGATIVE [facility] Comment on above: Performed By: #### C MP #### [facility] [address] [place] [address] Dr. Ramses Dumas Hemoglobin Ql (U) Negative Normal NEGATIVE [facility] Comment on above: Performed By: #### C MP #### [facility] [address] [place] [address] Dr. Ramses Dumas Ketones Ql (U) 40 mg/dl Abnormal NEGATIVE [facility] Comment on above: Performed By: #### C MP #### [facility] [address] [place] [address] Dr. Ramses Dumas LEUKOCYTES SMALL Abnormal NEGATIVE [facility] Comment on above: Performed By: #### C MP #### [facility] [address] [place] [address] Dr. Ramses Dumas Nitrite Ql (U) Negative Normal NEGATIVE [facility] Comment on above: Performed By: #### C MP #### [facility] [address] [place] [address] Dr. Ramses Dumas pH (U) 7.0 [pH] Normal 5-9 [facility] Comment on above: Performed By: #### C MP #### [facility] [address] [place] [address] Dr. Ramses Dumas Protein (U) [Mass/Vol] 30 mg/dL Abnormal NEGAT CHRIS/ TRACE [facility] Comment on above: Performed By: #### C MP #### [facility] [address] [place] [address] Dr. Ramses Dumas SPEC GRAVITY 1.020 Normal 1.005-<=1.02 5 [facility] Comment on above: Performed By: #### C MP #### [facility] [address] [place] [address] Dr. Ramses Dumas UR MICRO IND INDICATED Normal [facility] Comment on above: Performed By: #### C MP #### [facility] [address] [place] [address] Dr. Ramses Dumas Urobilinogen Qn (U) 4 {Lucero'U}/dL Abnormal 0.2 - 1.0 [facility] Comment on above: Performed By: #### C MP #### [facility] [address] [place] [address] Dr. Ramses Dumas LIPASEon 02-16-2023 Lipase [Catalytic activity/Vol] 67.0 U/L Critically low 73.0-393.0 [facility] Comment on above: Performed By: #### U RCX #### [facility] [address] [place] [address] Dr. Ramses Dumas LIVER PROFILEon 02-16-2023 Albumin [Mass/Vol] 4.1 g/dL Normal 3.4-5.0 [facility] Comment on above: Performed By: #### U RCX #### [facility] [address] [place] [address] [address] Ramses Dumas Albumin/Globulin [Mass ratio] 1.0 {ratio} Normal [facility] Comment on above: Performed By: #### U RCX #### [facility] [address] [place] [address] [address] Ramses Dumas ALP [Catalytic activity/Vol] 85 U/L Normal 46-116 [facility] Comment on above: Performed By: #### U RCX #### [facility] [address] [place] [address] [address] Ramses Dumas ALT [Catalytic activity/Vol] 61 U/L Critically high 14-59 [facility] Comment on above: Performed By: #### U RCX #### [facility] [address] [address] [address] Ramses Dumas AST [Catalytic activity/Vol] 43 U/L Critically high 15-37 [facility] Comment on above: Performed By: #### U RCX #### [facility] [address] [address] [address] Ramses Dumas BILI, CONJUGATED 0.1 mg/dL Normal 0.0-0.2 [facility] Comment on above: Performed By: #### U RCX #### [facility] [address] [address] [address] Ramses Dumas Bilirubin [Mass/Vol] 0.7 mg/dL Normal 0.2-1.0 [facility] Comment on above: Performed By: #### U RCX #### [facility] [address] [address] [address] Ramses Dumas Globulin (S) [Mass/Vol] 4.2 g/dL Normal [facility] Comment on above: Performed By: #### U RCX #### [facility] [address] [address] [address] Ramses Dumas Protein [Mass/Vol] 8.3 g/dL Critically high 6.4-8.2 [facility] Comment on above: Performed By: #### U RCX #### [facility] [address] [address] [address] Ramses Dumas URon 02-16-2023 , QUAL Negative Normal NEGATIVE [facility] Comment on above: Performed By: #### C MP #### [facility] [address] [address] [address] Ramses Dumas PROF CHEM 8 (BAS METB)on Anion gap [Moles/Vol] 14.2 mmol/L Normal [facility] Comment on above: Performed By: #### U RCX #### [facility] [address] [address] [address] Ramses Dumas Calcium [Mass/Vol] 9.5 mg/dL Normal 8.5-10.1 [facility] Comment on above: Performed By: #### U RCX #### [facility] [address] [address] [address] Ramses Dumas Chloride [Moles/Vol] 102 mmol/L Normal 98-107 [facility] Comment on above: Performed By: #### U RCX #### [facility] [address] [address] [address] Ramses Dumas CO2 [Moles/Vol] 27.5 mmol/L Normal 21.0-32.0 [facility] Comment on above: Performed By: #### U RCX #### [facility] [address] [address] [address] Ramses Dumas Creatinine [Mass/Vol] 0.71 mg/dL Normal 0.55-1.02 [facility] Comment on above: Performed By: #### U RCX #### [facility] [address] [address] [address] Ramses Dumas EGFR-AF KOSOVAN >60 Normal >=60 [facility] Comment on above: Performed By: #### U RCX #### [facility] [address] [place] [address] Dr. Ramses Dumas EGFR-NON AF KOSOVAN >60 Normal >=60 [facility] Comment on above: Performed By: #### U RCX #### [facility] [address] [address] [address] Ramses Dumas Glucose [Mass/Vol] 90 mg/dL Normal 74-106 [facility] Comment on above: Performed By: #### U RCX #### [facility] [address] [address] [address] Ramses Dumas Potassium [Moles/Vol] 3.7 mmol/L Normal 3.5-5.1 [facility] Comment on above: Performed By: #### U RCX #### [facility] [address] [address] [address] Ramses Dumas Sodium [Moles/Vol] 140 mmol/L Normal 136-145 [facility] Comment on above: Performed By: #### U RCX #### [facility] [address] [place] [address] Dr. Ramses Dumas Urea nitrogen [Mass/Vol] 6.0 mg/dL Critically low 7.0-18.0 [facility] Comment on above: Performed By: #### U RCX #### [facility] [address] [place] [address] Dr. Ramses Dumas Urea nitrogen/Creatinine [Mass ratio] 8.5 mg/mg Normal [facility] Comment on above: Performed By: #### U RCX #### [facility] [address] [place] [address] Dr. Ramses Dumas URINE MICROSCOPIC ONLYon BACTERIA NONE SEEN Normal NONE SEEN [facility] Comment on above: Performed By: #### U KJ 24 #### [facility] [address] [place] [address] Dr. Ramses Dumas Bacteria identified Cx Nom (U) NOT INDICATED Normal [facility] Comment on above: Performed By: #### U KJ 24 #### [facility] [address] [place] [address] Dr. Ramses Dumas CAST NONE SEEN Normal NONE SEEN [facility] Comment on above: Performed By: #### U KJ 24 #### [facility] [address] [place] [address] Dr. Ramses Dumas Crystals LM Nom (Urine sed) NONE SEEN Normal NONE SEEN [facility] Comment on above: Performed By: #### U KJ 24 #### [facility] [address] [place] [address] Dr. Ramses Dumas Epithelial cells LM Ql (Urine sed) FEW Abnormal NONE SEEN /RARE [facility] Comment on above: Performed By: #### U KJ 24 #### [facility] [address] [place] [address] Dr. Ramses Dumas MUCOUS SMALL Abnormal NONE SEEN [facility] Comment on above: Performed By: #### U KJ 24 #### [facility] [address] [place] [address] Dr. Ramses Dumas RBC NONE SEEN Abnormal 0-2 [facility] Comment on above: Performed By: #### U KJ 24 #### [facility] [address] [place] [address] Dr. Ramses Dumas WBC 0-2 Abnormal NONE SEEN [facility] Comment on above: Performed By: #### U KJ 24 #### [facility] [address] [place] [address] Dr. Ramses Dumas PAP ACOG PANEL 2: 30 to 65on 02-10-2023 . . Normal [facility] Comment on above: Result Comment: Perf ormed at: WB Performed By: #### U RCX #### [facility] [address] [place] [address] Dr. Ramses Dumas Age Gdln ACOG Testing 30-65 Normal [facility] Comment on above: Performed By: #### U RCX #### [facility] [address] [place] [address] Dr. Ramses Dumas DIAGNOSIS: Comment Normal [facility] Comment on above: Result Comment: NEGA TIVE FOR INTRAEPITHELIAL LESION OR MALIGNANCY. REACTIVE CELLULAR CHANGES AND/OR REPAIR ARE PRESENT. Performed at: WB Performed By: #### U RCX #### [facility] [address] [place] [address] Dr. Ramses Dumas Electronically signed by: Comment Normal [facility] Comment on above: Result Comment: Chelsey Boston MD, Pathologist Performed at: WB Performed By: #### U RCX #### [facility] [address] [address] [address] Ramses Dumas HPV Aptima Negative Normal Negative [facility] Comment on above: Result Comment: This nucleic acid amplification test detects fourteen high-risk HPV types (16,18,31,33,35,39,45,51,52,56,58,59,66,68) without differentiation. Performed at: =G Performed By: #### U RCX #### [facility] [address] [address] [address] Ramses Dumas HPV Genotype Reflex Comment Normal [facility] Comment on above: Result Comment: Crit erli not met, HPV Genotype not performed. Performed at: WB Performed By: #### U RCX #### [facility] [address] [address] [address] Ramses Dumas Methodology: Comment Normal [facility] Comment on above: Result Comment: This liquid based ThinPrep(R) pap test was screened with the use of an image guided system. Performed at: WB Performed By: #### U RCX #### [facility] [address] [address] [address] Ramses Dumas Note: Comment Normal [facility] Comment on above: Result Comment: The [...] WB Performed By: #### U RCX #### [facility] [address] [address] [address] Ramses Dumas Performed by: Comment Normal [facility] Comment on above: Result Comment: Cuca Briceno, Central Office Inspector (ASCP) Performed at: WB Performed By: #### U RCX #### [facility] [address] [address] [address] Ramses Dumas Specimen adequacy: Comment Normal [facility] Comment on above: Result Comment: Sati sfactory for evaluation. Endocervical and/or squamous metaplastic cells (endocervical component) are present. Performed at: WB Performed By: #### U RCX #### [facility] [address] [place] [address] Dr. Ramses Dumas Lab Reportson 12-29-2022 Lab Reports [id number]:[id number] Normal [facility] RAD - MISCon 12-21-2022 RAD - MISC [id number] 0CD:[id number] Normal [facility] OXALATE 24HR URINEon 023 Oxalates, Urine 44 mg/L Normal Undefined [facility] Comment on above: Performed By: #### U KJ 24 #### [facility] [address] [place] [address] Dr. Ramses Dumas Oxalates, Urine 24hr 44 mg/24 hr Critically high 4-31 [facility] Comment on above: Performed By: #### U KJ 24 #### [facility] [address] [place] [address] Dr. Ramses Dumas CITRATE URINE 24HRon 023 Citric Acid, U, 24hr 658 mg/24 hr Normal 320-1240 [facility] Comment on above: Result Comment: This test was developed and its performance characteristics determined by [facility]. It has not been cleared or approved by the Food and Drug Administration. Performed By: #### C ITRATU #### [facility] [address] [place] [address] Dr. Ramses Dumas Citric Acid, Urine 658 mg/L Normal Undefined [facility] Comment on above: Performed By: #### C ITRATU #### [facility] [address] [place] [address] Dr. Ramses Dumas MAGNESIUM 24HR URINEon 12-17 Magnesium 24hr Urine 119.0 mg/24 hr Normal 12.0-293.0 [facility] Comment on above: Performed By: #### U RCX #### [facility] [address] [place] [address] Dr. Ramses Dumas Magnesium UR 11.9 mg/dL Normal Not Estab. [facility] Comment on above: Performed By: #### U RCX #### [facility] [address] [place] [address] Dr. Ramses Dumas PHOSPHORUS 24HR URINEon Phosphorus, Urine 81.4 mg/dL Normal Not Estab. The [facility] Comment on above: Performed By: #### B LDCX2 #### [facility] [address] [place] [address] Dr. Ramses Dumas Phosphorus, Urine 24hr 814 mg/24 hr Normal 261-1078 [facility] Comment on above: Performed By: #### B LDCX2 #### [facility] [address] [place] [address] Dr. Ramses Dumas PTH INTACTon 12-17-2022 PTH, Intact 46 pg/mL Normal 15-65 [facility] Comment on above: Performed By: #### U RCX #### [facility] [address] [place] [address] Dr. Ramses Dumas URIC ACID 24 HR URINEon Uric Acid, Urine 69.9 mg/dL Normal Not Estab. The [facility] Comment on above: Performed By: #### U KJ 24 #### [facility] [address] [place] [address] Dr. Ramses Dumas Uric Acid, Urine 24hr 699.0 mg/24 hr Normal 173.7-902. 1 [facility] Comment on above: Performed By: #### U KJ 24 #### [facility] [address] [place] [address] Dr. Ramses Dumas BUNon 12-16-2022 Urea nitrogen [Mass/Vol] 7.0 mg/dL Normal 7.0-18.0 [facility] Comment on above: Performed By: #### C BC #### [facility] [address] [place] [address] Dr. Ramses Dumas CALCIUMon 12-16-2022 Calcium [Mass/Vol] 8.8 mg/dL Normal 8.5-10.1 [facility] Comment on above: Performed By: #### C BC #### [facility] [address] [place] [address] Dr. Ramses Dumas CALCIUM 24 HR URINEon 2022 CALC, 24 HR UR 295.0 mg/24 hr Normal 100.0-300.0 [facility] Comment on above: Performed By: #### B LDCX2 #### [facility] [address] [place] [address] Dr. Ramses Dumas UR CALCIUM 29.5 mg/dL Critically high 5.1-21.0 [facility] Comment on above: Performed By: #### B LDCX2 #### [facility] [address] [place] [address] Dr. Ramses Dumas CHLORIDEon 12-16-2022 Chloride [Moles/Vol] 105 mmol/L Normal 98-107 [facility] Comment on above: Performed By: #### C BC #### [facility] [address] [place] [address] Dr. Ramses Dumas CO2on 12-16-2022 CO2 [Moles/Vol] 26.4 mmol/L Normal 21.0-32.0 [facility] Comment on above: Performed By: #### C MP #### [facility] [address] [place] [address] Dr. Ramses Dumas CREA 24 HR URINEon 3 CREA, 24 HR UR 2337.30 mg/24 hr Critically high 800.00 -1,800 .00 [facility] Comment on above: Performed By: #### C VDTBH #### [facility] [address] [place] [address] Dr. Ramses Dumas URINE CREAT 233.73 mg/dL Normal 20.00-300.00 [facility] Comment on above: Performed By: #### C VDTBH #### [facility] [address] [place] [address] Dr. Ramses Dumas CREATININEon 12-16-2022 Creatinine [Mass/Vol] 0.70 mg/dL Normal 0.55-1.02 [facility] Comment on above: Performed By: #### C MP #### [facility] [address] [address] [address] Ramses Dumas EGFR-AF KOSOVAN >60 Normal >=60 [facility] Comment on above: Performed By: #### C MP #### [facility] [address] [address] [address] Ramses Dumas EGFR-NON AF KOSOVAN >60 Normal >=60 [facility] Comment on above: Performed By: #### C MP #### [facility] [address] [place] [address] Dr. Ramses Dumas NAon 12-16-2022 Sodium [Moles/Vol] 139 mmol/L Normal 136-145 [facility] Comment on above: Performed By: #### C MP #### [facility] [address] [place] [address] Dr. Ramses Dumas POTASSIUMon 12-16-2022 Potassium [Moles/Vol] 4.0 mmol/L Normal 3.5-5.1 [facility] Comment on above: Performed By: #### C MP #### [facility] [address] [place] [address] Dr. Ramses Dumas SODIUM 24 HR URINEon 023 NA, 24 HR UR 193 mmol/24 hr Normal 40-220 [facility] Comment on above: Performed By: #### C VDTBH #### [facility] [address] [place] [address] Dr. Ramses Dumas Sodium (U) [Moles/Vol] 193 mmol/L Critically high 30-90 [facility] Comment on above: Performed By: #### C VDTBH #### [facility] [address] [place] [address] Dr. Ramses Dumas UR TOT VOL 1000 ml/24 HR Normal [facility] Comment on above: Performed By: #### C VDTBH #### [facility] [address] [place] [address] Dr. Ramses Dumas Performed By: #### B LDCX2 #### [facility] [address] [place] [address] Dr. Ramses Dumas URIC ACID SERUMon 12-16-2022 Urate [Mass/Vol] 5.6 mg/dL Normal 2.6-6.0 [facility] Comment on above: Performed By: #### C MP #### [facility] [address] [place] [address] Dr. Ramses Dumas XR KUB 1 VIEWon [...] JENNIFER GATES Date: 2022-12-15 08:26 Normal [facility] CBC AUTO DIFFon 11-07-2022 BASO # 0.0 103/ul Normal 0.0-0.1 [facility] Comment on above: Performed By: #### U RCX #### [facility] [address] [place] [address] Dr. Ramses Dumas Basophils/100 WBC (Bld) 0.7 % Normal 0.2-2.0 [facility] Comment on above: Performed By: #### U RCX #### [facility] [address] [place] [address] Dr. Ramses Dumas EO # 0.1 103/ul Normal 0.0-0.7 [facility] Comment on above: Performed By: #### U RCX #### [facility] [address] [place] [address] Dr. Ramses Dumsa Eosinophils/100 WBC (Bld) 1.9 % Normal 0.9-7.0 [facility] Comment on above: Performed By: #### U RCX #### [facility] [address] [place] [address] Dr. Ramses Dumas Erythrocyte distribution width (RBC) [Ratio] 13.6 % Normal 11.0-15.0 [facility] Comment on above: Performed By: #### U RCX #### [facility] [address] [place] [address] Dr. Ramses Dumas Hematocrit (Bld) [Volume fraction] 37.3 % Normal 36.0-48.0 [facility] Comment on above: Performed By: #### U RCX #### [facility] [address] [place] [address] Dr. Ramses Dumas Hemoglobin (Bld) [Mass/Vol] 12.2 g/dL Normal 12.0-16.0 [facility] Comment on above: Performed By: #### U RCX #### [facility] [address] [place] [address] Dr. Ramses Dumas IG # 0.02 10e3/ul Normal 0.00-0.03 [facility] Comment on above: Performed By: #### U RCX #### [facility] [address] [place] [address] Dr. Ramses Dumas IG % 0.3 % Normal 0.0-0.5 [facility] Comment on above: Performed By: #### U RCX #### [facility] [address] [place] [address] Dr. Ramses Dumas LYMPH # 2.3 103/ul Normal 1.2-3.8 [facility] Comment on above: Performed By: #### U RCX #### [facility] [address] [place] [address] Dr. Ramses Dumas Lymphocytes/100 WBC (Bld) 39.6 % Normal 20.5-60.0 [facility] Comment on above: Performed By: #### U RCX #### [facility] [address] [place] [address] Dr. Ramses Dumas MANUAL DIFF REQ NO Normal [facility] Comment on above: Performed By: #### U RCX #### [facility] [address] [place] [address] Dr. Ramses Dumas MCH (RBC) [Entitic mass] 26.4 pg Critically low 26.7-34.0 [facility] Comment on above: Performed By: #### U RCX #### [facility] [address] [place] [address] Dr. Ramses Dumas MCHC (RBC) [Mass/Vol] 32.7 g/dL Normal 29.9-35.2 [facility] Comment on above: Performed By: #### U RCX #### [facility] [address] [place] [address] Dr. Ramses Dumas MCV (RBC) [Entitic vol] 80.7 fL Critically low 81.0-99.0 [facility] Comment on above: Performed By: #### U RCX #### [facility] [address] [place] [address] Dr. Ramses Dumas MONO # 0.5 103/ul Normal 0.3-0.8 [facility] Comment on above: Performed By: #### U RCX #### [facility] [address] [place] [address] Dr. Ramses Dumas Monocytes/100 WBC (Bld) 8.0 % Normal 1.7-12.0 [facility] Comment on above: Performed By: #### U RCX #### [facility] [address] [place] [address] Dr. Ramses Dumas NEUT # 2.9 103/ul Normal 1.4-6.5 [facility] Comment on above: Performed By: #### U RCX #### [facility] [address] [place] [address] Dr. Ramses Duams Neutrophils/100 WBC (Bld) 49.5 % Normal 43.0-75.0 [facility] Comment on above: Performed By: #### U RCX #### [facility] [address] [place] [address] Dr. Ramses Dumas Platelet mean volume (Bld) [Entitic vol] 9.0 fL Critically low 9.5-13.5 [facility] Comment on above: Performed By: #### U RCX #### [facility] [address] [place] [address] Dr. Ramses Dumas PLT 337 103/ul Normal 150-450 [facility] Comment on above: Performed By: #### U RCX #### [facility] [address] [place] [address] Dr. Ramses Dumas RBC 4.62 106/ul Normal 4.20-5.40 [facility] Comment on above: Performed By: #### U RCX #### [facility] [address] [place] [address] Dr. Ramses Dumas WBC 5.9 103/ul Normal 4.0-11.0 [facility] Comment on above: Performed By: #### U RCX #### [facility] [address] [place] [address] Dr. Ramses Dumas POINT OF CARE GLUCOSEon 10-20 Glucose [Mass/Vol] 115 mg/dL Critically high 74-106 [facility] Comment on above: Performed By: #### C VDTBH #### [facility] [address] [place] [address] Dr. Ramses Dumas PREG QUANT HCGon 11-07-2022 HCG QUANT <1 Normal [facility] Comment on above: Performed By: #### C VDTBH #### [facility] [address] [place] [address] Dr. Ramses Dumas HCG RANGE SEE BELOW Normal [facility] Comment on above: Result Comment: 5-50 0.2-1 WEEK 50-500 1-2 WEEKS 100-5,000 2-3 WEEKS 500-10,000 3-4 WEEKS 1,000-50,000 4-5 WEEKS 10,000-100,000 5-6 WEEKS 15,000-200,000 6-8 WEEKS 10,000-100,000 2-3 MONTHS Performed By: #### C VDTBH #### [facility] [address] [place] [address] Dr. Ramses Dumas US PELVIS AND TRANSVAGon [...] cm right ovarian simple cyst Normal [facility] CBC AUTO DIFFon 11-03-2022 BASO # 0.1 103/ul Normal 0.0-0.1 [facility] Comment on above: Performed By: #### U RCX #### [facility] [address] [place] [address] Dr. Ramses Dumas Basophils/100 WBC (Bld) 0.8 % Normal 0.2-2.0 [facility] Comment on above: Performed By: #### U RCX #### [facility] [address] [place] [address] Dr. Ramses Dumas EO # 0.1 103/ul Normal 0.0-0.7 [facility] Comment on above: Performed By: #### U RCX #### [facility] [address] [place] [address] Dr. Ramses Dumas Eosinophils/100 WBC (Bld) 1.4 % Normal 0.9-7.0 [facility] Comment on above: Performed By: #### U RCX #### [facility] [address] [place] [address] Dr. Ramses Dumas Erythrocyte distribution width (RBC) [Ratio] 13.4 % Normal 11.0-15.0 [facility] Comment on above: Performed By: #### U RCX #### [facility] [address] [place] [address] Dr. Ramses Dumas Hematocrit (Bld) [Volume fraction] 38.8 % Normal 36.0-48.0 [facility] Comment on above: Performed By: #### U RCX #### [facility] [address] [address] [address] Ramses Dumas Hemoglobin (Bld) [Mass/Vol] 12.7 g/dL Normal 12.0-16.0 [facility] Comment on above: Performed By: #### U RCX #### [facility] [address] [address] [address] Ramses Dumas IG # 0.01 10e3/ul Normal 0.00-0.03 [facility] Comment on above: Performed By: #### U RCX #### [facility] [address] [place] [address] Dr. Ramses Dumas IG % 0.1 % Normal 0.0-0.5 [facility] Comment on above: Performed By: #### U RCX #### [facility] [address] [address] [address] Ramses Dumas LYMPH # 1.9 103/ul Normal 1.2-3.8 [facility] Comment on above: Performed By: #### U RCX #### [facility] [address] [place] [address] Dr. Ramses Dumas Lymphocytes/100 WBC (Bld) 26.4 % Normal 20.5-60.0 [facility] Comment on above: Performed By: #### U RCX #### [facility] [address] [address] [address] Ramses Dumas MANUAL DIFF REQ NO Normal [facility] Comment on above: Performed By: #### U RCX #### [facility] [address] [address] [address] Ramses Dumsa MCH (RBC) [Entitic mass] 26.3 pg Critically low 26.7-34.0 [facility] Comment on above: Performed By: #### U RCX #### [facility] [address] [place] [address] Dr. Ramses Dumas MCHC (RBC) [Mass/Vol] 32.7 g/dL Normal 29.9-35.2 [facility] Comment on above: Performed By: #### U RCX #### [facility] [address] [place] [address] Dr. Ramses Dumas MCV (RBC) [Entitic vol] 80.5 fL Critically low 81.0-99.0 [facility] Comment on above: Performed By: #### U RCX #### [facility] [address] [place] [address] Dr. Ramess Dumas MONO # 0.6 103/ul Normal 0.3-0.8 [facility] Comment on above: Performed By: #### U RCX #### [facility] [address] [place] [address] Dr. Ramses Dumas Monocytes/100 WBC (Bld) 8.2 % Normal 1.7-12.0 [facility] Comment on above: Performed By: #### U RCX #### [facility] [address] [place] [address] Dr. Ramses Dumas NEUT # 4.5 103/ul Normal 1.4-6.5 [facility] Comment on above: Performed By: #### U RCX #### [facility] [address] [place] [address] Dr. Ramses Dumas Neutrophils/100 WBC (Bld) 63.1 % Normal 43.0-75.0 [facility] Comment on above: Performed By: #### U RCX #### [facility] [address] [place] [address] Dr. Ramses Dumas Platelet mean volume (Bld) [Entitic vol] 8.9 fL Critically low 9.5-13.5 [facility] Comment on above: Performed By: #### U RCX #### [facility] [address] [place] [address] Dr. Ramses Dumas PLT 340 103/ul Normal 150-450 [facility] Comment on above: Performed By: #### U RCX #### [facility] [address] [place] [address] Dr. Ramses Dumas RBC 4.82 106/ul Normal 4.20-5.40 [facility] Comment on above: Performed By: #### U RCX #### [facility] [address] [place] [address] Dr. Ramses Dumas WBC 7.1 103/ul Normal 4.0-11.0 [facility] Comment on above: Performed By: #### U RCX #### [facility] [address] [place] [address] Dr. Ramses Dumas [facility] 10[facility]19 SARS-CoV-2 (COVID-19) RNA FRANCESCA+probe Ql (Unsp spec) Not detected Normal NOT DETECTED [facility] Comment on above: Result Comment: This test is not yet approved or cleared by the [place] FDA. When there are no FDA-approved or cleared tests available, and other criteria are met, FDA can make tests available under an emergency access mechanism called an Emergency Use Authorization (EUA). The EUA for this test is supported by the [place] of Health and Human Service's (HHS's) declaration [...] SARS-CoV-2. Performed By: #### U RCX #### [facility] [address] [place] [address] Dr. Ramses Dumas FREE T4on 11-03-2022 Free T4 [Mass/Vol] 0.99 ng/dL Normal 0.76-1.46 [facility] Comment on above: Performed By: #### B LDCX2 #### [facility] [address] [place] [address] Dr. Ramses Dumas GLYCOHEMOGLOBIN A1Con 2022 ADA RECOMMENDATION SEE BELOW Normal [facility] Comment on above: Result Comment: ADA RECOMMENDED LIMIT 4.0 - 6.0 ADA THERAPEUTIC TARGET < 7.0 ACTION SUGGESTED > 7.0 Performed By: #### C VDTBH #### [facility] [address] [place] [address] Dr. Ramses Dumas Glucose [Mass/Vol] 117 mg/dL Normal [facility] Comment on above: Performed By: #### C VDTBH #### [facility] [address] [place] [address] Dr. Ramses Dumas HbA1c (Bld) [Mass fraction] 5.7 % Normal 4.5-6.2 [facility] Comment on above: Performed By: #### C VDTBH #### [facility] [address] [place] [address] Dr. Ramses Dumas PROTIMEon 11-03-2022 INR Coag (PPP) [Relative time] 0.97 {INR} Normal [facility] Comment on above: Performed By: #### U KJ 24 #### [facility] [address] [place] [address] Dr. Ramses Dumas INR GUIDELINES SEE BELOW Normal [facility] Comment on above: Result Comment: TOÑA RED INR: 2.0 - 3.0 CONDITIONS NOT LISTED BELOW 2.5 - 3.5 FOR PROSTHETIC HEART VALVE REPLACEMENT 2.5 - 3.5 RECURRENT THROMBOSIS Performed By: #### U KJ 24 #### [facility] [address] [place] [address] Dr. Ramses Dumas PT Coag (PPP) [Time] 10.3 s Normal 9.0-11.6 [facility] Comment on above: Performed By: #### U KJ 24 #### [facility] [address] [place] [address] Dr. Ramses Dumas PTTon 11-03-2022 aPTT Coag (Bld) [Time] 27.7 s Normal 22.3-36.2 [facility] Comment on above: Performed By: #### U KJ 24 #### [facility] [address] [place] [address] Dr. Ramses Dumas TSHon 11-03-2022 TSH 0.667 uIU/mL Normal 0.358-3.740 [facility] Comment on above: Performed By: #### C VDTBH #### [facility] [address] [address] [address] Ramses Dumas PREG HCG QUALon 09-18-2022 , QUAL Negative Normal NEGATIVE [facility] Comment on above: Performed By: #### U KJ 24 #### [facility] [address] [address] [address] Ramses Dumas Covid-19 PCR ([facility])on 08-20 SARS-CoV-2 (COVID-19) RNA FRANCESCA+probe Ql (Unsp spec) Not detected Normal NOT DETECTED [facility] Comment on above: Result Comment: This test is not yet approved or cleared by the [place] FDA. When there are no FDA-approved or cleared tests available, and other criteria are met, FDA can make tests available under an emergency access mechanism called an Emergency Use Authorization (EUA). The EUA for this test is supported by the [place] of Health and Human Service's (HHS's) declaration [...] SARS-CoV-2. Performed By: #### C VDTBH #### [facility] [address] [address] [address] Ramses Dumas CBC AUTO DIFFon 09-05-2022 BASO # 0.1 103/ul Normal 0.0-0.1 [facility] Comment on above: Performed By: #### B LDCX2 #### [facility] [address] [address] [address] Ramses Dumas Basophils/100 WBC (Bld) 0.7 % Normal 0.2-2.0 [facility] Comment on above: Performed By: #### B LDCX2 #### [facility] [address] [place] [address] Dr. Ramses Dumas EO # 0.2 103/ul Normal 0.0-0.7 [facility] Comment on above: Performed By: #### B LDCX2 #### [facility] [address] [place] [address] Dr. Ramses Dumas Eosinophils/100 WBC (Bld) 2.2 % Normal 0.9-7.0 [facility] Comment on above: Performed By: #### B LDCX2 #### [facility] [address] [place] [address] Dr. Ramses Dumas Erythrocyte distribution width (RBC) [Ratio] 13.9 % Normal 11.0-15.0 [facility] Comment on above: Performed By: #### B LDCX2 #### [facility] [address] [place] [address] Dr. Ramses Dumas Hematocrit (Bld) [Volume fraction] 38.8 % Normal 36.0-48.0 [facility] Comment on above: Performed By: #### B LDCX2 #### [facility] [address] [place] [address] Dr. Ramses Dumas Hemoglobin (Bld) [Mass/Vol] 12.6 g/dL Normal 12.0-16.0 [facility] Comment on above: Performed By: #### B LDCX2 #### [facility] [address] [place] [address] Dr. Ramses Dumas IG # 0.03 10e3/ul Normal 0.00-0.03 [facility] Comment on above: Performed By: #### B LDCX2 #### [facility] [address] [place] [address] Dr. Ramses Dumas IG % 0.3 % Normal 0.0-0.5 [facility] Comment on above: Performed By: #### B LDCX2 #### [facility] [address] [place] [address] Dr. Ramses Dumas LYMPH # 2.3 103/ul Normal 1.2-3.8 [facility] Comment on above: Performed By: #### B LDCX2 #### [facility] [address] [place] [address] Dr. Ramses Dumas Lymphocytes/100 WBC (Bld) 21.3 % Normal 20.5-60.0 [facility] Comment on above: Performed By: #### B LDCX2 #### [facility] [address] [place] [address] Dr. Ramses Dumas MANUAL DIFF REQ NO Normal [facility] Comment on above: Performed By: #### B LDCX2 #### [facility] [address] [place] [address] Dr. Ramses Dumas MCH (RBC) [Entitic mass] 26.4 pg Critically low 26.7-34.0 [facility] Comment on above: Performed By: #### B LDCX2 #### [facility] [address] [place] [address] Dr. Ramses Dumas MCHC (RBC) [Mass/Vol] 32.5 g/dL Normal 29.9-35.2 [facility] Comment on above: Performed By: #### B LDCX2 #### [facility] [address] [place] [address] Dr. Ramses Dumas MCV (RBC) [Entitic vol] 81.2 fL Normal 81.0-99.0 [facility] Comment on above: Performed By: #### B LDCX2 #### [facility] [address] [place] [address] Dr. Ramses Dumas MONO # 0.8 103/ul Normal 0.3-0.8 [facility] Comment on above: Performed By: #### B LDCX2 #### [facility] [address] [place] [address] Dr. Ramses Dumas Monocytes/100 WBC (Bld) 7.4 % Normal 1.7-12.0 [facility] Comment on above: Performed By: #### B LDCX2 #### [facility] [address] [address] [address] Ramses Dumas NEUT # 7.3 103/ul Critically high 1.4-6.5 [facility] Comment on above: Performed By: #### B LDCX2 #### [facility] [address] [place] [address] Dr. Ramses Dumas Neutrophils/100 WBC (Bld) 68.1 % Normal 43.0-75.0 [facility] Comment on above: Performed By: #### B LDCX2 #### [facility] [address] [place] [address] Dr. Ramses Dumas Platelet mean volume (Bld) [Entitic vol] 8.8 fL Critically low 9.5-13.5 [facility] Comment on above: Performed By: #### B LDCX2 #### [facility] [address] [place] [address] Dr. Ramses Dumas PLT 323 103/ul Normal 150-450 [facility] Comment on above: Performed By: #### B LDCX2 #### [facility] [address] [place] [address] Dr. Ramses Dumas RBC 4.78 106/ul Normal 4.20-5.40 [facility] Comment on above: Performed By: #### B LDCX2 #### [facility] [address] [place] [address] Dr. Ramses Dumas WBC 10.7 103/ul Normal 4.0-11.0 [facility] Comment on above: Performed By: #### B LDCX2 #### [facility] [address] [place] [address] Dr. Ramses Dumas CULTURE URINEon 09-05-2022 CULTURE URINE Culture Observations : LIGHT GROWTH OF MIXED GENITAL DAIANA. NO POTENTIAL PATHOGENS SEEN. Normal [facility] Comment on above: Performed By: #### U RCX #### [facility] [address] [place] [address] Dr. Ramses Dumas ER URINE PROFILEon Bilirubin Ql (U) Negative Normal NEGATIVE [facility] Comment on above: Performed By: #### B LDCX2 #### [facility] [address] [place] [address] Dr. Ramses Dumas Clarity (U) CLOUDY Abnormal CLEAR [facility] Comment on above: Performed By: #### B LDCX2 #### [facility] [address] [place] [address] Dr. Ramses Dumas Color (U) YELLOW Normal YELLOW [facility] Comment on above: Performed By: #### B LDCX2 #### [facility] [address] [place] [address] Dr. Ramses Dumas ERUAHWalter A micrscopic examination will be performed if indicated. Normal [facility] Comment on above: Performed By: #### B LDCX2 #### [facility] [address] [place] [address] Dr. Rmases Dumas Glucose Ql (U) Negative Normal NEGATIVE The [facility] Comment on above: Performed By: #### B LDCX2 #### [facility] [address] [place] [address] Dr. Ramses Dumas Hemoglobin Ql (U) LARGE Abnormal NEGATIVE [facility] Comment on above: Performed By: #### B LDCX2 #### [facility] [address] [place] [address] Dr. Ramses Dumas Ketones Ql (U) Negative Normal NEGATIVE [facility] Comment on above: Performed By: #### B LDCX2 #### [facility] [address] [place] [address] Dr. Ramses Dumas LEUKOCYTES SMALL Abnormal NEGATIVE [facility] Comment on above: Performed By: #### B LDCX2 #### [facility] [address] [place] [address] Dr. Ramses Dumas Nitrite Ql (U) Negative Normal NEGATIVE [facility] Comment on above: Performed By: #### B LDCX2 #### [facility] [address] [place] [address] Dr. Ramses Dumas pH (U) 6.0 [pH] Normal 5-9 [facility] Comment on above: Performed By: #### B LDCX2 #### [facility] [address] [place] [address] Dr. Ramses Dumas Protein (U) [Mass/Vol] 100 mg/dL Abnormal NEGAT CHRIS/ TRACE [facility] Comment on above: Performed By: #### B LDCX2 #### [facility] [address] [place] [address] Dr. Ramses Dumas SPEC GRAVITY >=1.030 Abnormal 1.005-<=1.02 5 [facility] Comment on above: Performed By: #### B LDCX2 #### [facility] [address] [address] [address] Ramses Dumas UR MICRO IND INDICATED Normal [facility] Comment on above: Performed By: #### B LDCX2 #### [facility] [address] [place] [address] Dr. Ramses Dumas Urobilinogen Qn (U) 0.2 {Lucero'U}/dL Normal 0.2 - 1. 0 [facility] Comment on above: Performed By: #### B LDCX2 #### [facility] [address] [place] [address] Dr. Ramses Dumas URon 09-05-2022 , QUAL Negative Normal NEGATIVE [facility] Comment on above: Performed By: #### B LDCX2 #### [facility] [address] [place] [address] Dr. Ramses Dumas PROF CHEM 8 (BAS METB)on Anion gap [Moles/Vol] 11.7 mmol/L Normal [facility] Comment on above: Performed By: #### C MP #### [facility] [address] [place] [address] Dr. Ramses Dumas Calcium [Mass/Vol] 9.1 mg/dL Normal 8.5-10.1 [facility] Comment on above: Performed By: #### C MP #### [facility] [address] [place] [address] Dr. Ramses Dumas Chloride [Moles/Vol] 103 mmol/L Normal 98-107 [facility] Comment on above: Performed By: #### C MP #### [facility] [address] [address] [address] Ramses Dumas CO2 [Moles/Vol] 25.9 mmol/L Normal 21.0-32.0 [facility] Comment on above: Performed By: #### C MP #### [facility] [address] [address] [address] Ramses Dumas Creatinine [Mass/Vol] 0.77 mg/dL Normal 0.55-1.02 [facility] Comment on above: Performed By: #### C MP #### [facility] [address] [address] [address] Ramses Dumas EGFR-AF KOSOVAN >60 Normal >=60 [facility] Comment on above: Performed By: #### C MP #### [facility] [address] [place] [address] Dr. Ramses Dumas EGFR-NON AF KOSOVAN >60 Normal >=60 [facility] Comment on above: Performed By: #### C MP #### [facility] [address] [address] [address] Ramses Dumas Glucose [Mass/Vol] 124 mg/dL Critically high 74-106 [facility] Comment on above: Performed By: #### C MP #### [facility] [address] [address] [address] Ramses Dumas Potassium [Moles/Vol] 3.6 mmol/L Normal 3.5-5.1 [facility] Comment on above: Performed By: #### C MP #### [facility] [address] [address] [address] Ramses Dumas Sodium [Moles/Vol] 137 mmol/L Normal 136-145 [facility] Comment on above: Performed By: #### C MP #### [facility] [address] [place] [address] Dr. Ramses Dumas Urea nitrogen [Mass/Vol] 12.0 mg/dL Normal 7.0-18.0 [facility] Comment on above: Performed By: #### C MP #### [facility] [address] [address] [address] Ramses Dumas Urea nitrogen/Creatinine [Mass ratio] 15.6 mg/mg Normal [facility] Comment on above: Performed By: #### C MP #### [facility] [address] [place] [address] Dr. Ramses Dumas URINE MICROSCOPIC ONLYon AMORPHOUS CRYSTALS RARE Normal [facility] Comment on above: Performed By: #### B LDCX2 #### [facility] [address] [place] [address] Dr. Ramses Dumas BACTERIA TRACE Abnormal NONE SEEN [facility] Comment on above: Performed By: #### B LDCX2 #### [facility] [address] [place] [address] Dr. Ramses Dumas Bacteria identified Cx Nom (U) INDICATED Normal [facility] Comment on above: Performed By: #### B LDCX2 #### [facility] [address] [place] [address] Dr. Ramses Dumas CA OX CRYSTALS RARE Normal The [facility] Comment on above: Performed By: #### B LDCX2 #### [facility] [address] [place] [address] Dr. Ramses Dumas CAST NONE SEEN Normal NONE SEEN [facility] Comment on above: Performed By: #### B LDCX2 #### [facility] [address] [place] [address] Dr. Ramses Dumas Crystals LM Nom (Urine sed) SEEN Abnormal NONE SEEN [facility] Comment on above: Performed By: #### B LDCX2 #### [facility] [address] [place] [address] Dr. Ramses Dumas Epithelial cells LM Ql (Urine sed) FEW Abnormal NONE SEEN /RARE [facility] Comment on above: Performed By: #### B LDCX2 #### [facility] [address] [place] [address] Dr. Ramses Dumas MUCOUS TRACE Abnormal NONE SEEN [facility] Comment on above: Performed By: #### B LDCX2 #### [facility] [address] [place] [address] Dr. Ramses Dumas RBC 50-75 Abnormal 0-2 [facility] Comment on above: Performed By: #### B LDCX2 #### [facility] [address] [address] [address] Ramses Dumas WBC 20-50 Abnormal NONE SEEN [facility] Comment on above: Performed By: #### B LDCX2 #### [facility] [address] [address] [address] Ramses Dumas YEAST PRESENT Abnormal NONE SEEN [facility] Comment on above: Performed By: #### B LDCX2 #### [facility] [address] [place] [address] Dr. Ramses Dumas US KIDNEYSon 09-05-2022 US [...] GLEN GRAFF Date: 2022-09-05 11:00 Normal [facility] [address] ABD/PELVIS WO CONon 08-29 CT ABD/PELVIS [...] ERICKA IGLESIAS Date: 2022-08-29 01:10 Normal [facility] CULTURE URINEon 08-29-2022 CULTURE URINE Culture Observations : LIGHT GROWTH OF MIXED GENITAL DAIANA. NO POTENTIAL PATHOGENS SEEN. Normal [facility] Comment on above: Performed By: #### U RCX #### [facility] [address] [place] [address] Dr. Ramses Dumas CBC AUTO DIFFon 08-28-2022 BASO # 0.1 103/ul Normal 0.0-0.1 [facility] Comment on above: Performed By: #### U RCX #### [facility] [address] [place] [address] Dr. Ramses Dumas Basophils/100 WBC (Bld) 0.5 % Normal 0.2-2.0 [facility] Comment on above: Performed By: #### U RCX #### [facility] [address] [place] [address] Dr. Ramses Dumas EO # 0.3 103/ul Normal 0.0-0.7 [facility] Comment on above: Performed By: #### U RCX #### [facility] [address] [place] [address] Dr. Ramses Dumas Eosinophils/100 WBC (Bld) 2.3 % Normal 0.9-7.0 [facility] Comment on above: Performed By: #### U RCX #### [facility] [address] [place] [address] Dr. Ramses Dumas Erythrocyte distribution width (RBC) [Ratio] 13.7 % Normal 11.0-15.0 [facility] Comment on above: Performed By: #### U RCX #### [facility] [address] [place] [address] Dr. Ramses Dumas Hematocrit (Bld) [Volume fraction] 36.7 % Normal 36.0-48.0 [facility] Comment on above: Performed By: #### U RCX #### [facility] [address] [place] [address] Dr. Ramses Dumas Hemoglobin (Bld) [Mass/Vol] 12.3 g/dL Normal 12.0-16.0 [facility] Comment on above: Performed By: #### U RCX #### [facility] [address] [place] [address] Dr. Ramsse Dumas IG # 0.16 10e3/ul Critically high 0.00-0.03 [facility] Comment on above: Performed By: #### U RCX #### [facility] [address] [place] [address] Dr. Ramses Dumas IG % 1.1 % Critically high 0.0-0.5 [facility] Comment on above: Performed By: #### U RCX #### [facility] [address] [place] [address] Dr. Ramses Dumas LYMPH # 4.6 103/ul Critically high 1.2-3.8 [facility] Comment on above: Performed By: #### U RCX #### [facility] [address] [place] [address] Dr. Ramses Dumas Lymphocytes/100 WBC (Bld) 31.8 % Normal 20.5-60.0 [facility] Comment on above: Performed By: #### U RCX #### [facility] [address] [place] [address] Dr. Ramses Dumas MANUAL DIFF REQ NO Normal [facility] Comment on above: Performed By: #### U RCX #### [facility] [address] [place] [address] Dr. Ramses Dumas MCH (RBC) [Entitic mass] 26.9 pg Normal 26.7-34.0 [facility] Comment on above: Performed By: #### U RCX #### [facility] [address] [place] [address] Dr. Ramses Dumas MCHC (RBC) [Mass/Vol] 33.5 g/dL Normal 29.9-35.2 [facility] Comment on above: Performed By: #### U RCX #### [facility] [address] [place] [address] Dr. Ramses Dumas MCV (RBC) [Entitic vol] 80.3 fL Critically low 81.0-99.0 [facility] Comment on above: Performed By: #### U RCX #### [facility] [address] [place] [address] Dr. Ramses Dumas MONO # 1.0 103/ul Critically high 0.3-0.8 [facility] Comment on above: Performed By: #### U RCX #### [facility] [address] [place] [address] Dr. Ramses Dumas Monocytes/100 WBC (Bld) 7.0 % Normal 1.7-12.0 [facility] Comment on above: Performed By: #### U RCX #### [facility] [address] [place] [address] Dr. Ramses Dumas NEUT # 8.2 103/ul Critically high 1.4-6.5 [facility] Comment on above: Performed By: #### U RCX #### [facility] [address] [place] [address] Dr. Ramses Dumas Neutrophils/100 WBC (Bld) 57.3 % Normal 43.0-75.0 [facility] Comment on above: Performed By: #### U RCX #### [facility] [address] [place] [address] Dr. Ramses Dumas Platelet mean volume (Bld) [Entitic vol] 8.6 fL Critically low 9.5-13.5 [facility] Comment on above: Performed By: #### U RCX #### [facility] [address] [place] [address] Dr. Ramses Dumas PLT 395 103/ul Normal 150-450 [facility] Comment on above: Performed By: #### U RCX #### [facility] [address] [place] [address] Dr. Ramses Dumas RBC 4.57 106/ul Normal 4.20-5.40 [facility] Comment on above: Performed By: #### U RCX #### [facility] [address] [place] [address] Dr. Ramses Dumas WBC 14.3 103/ul Critically high 4.0-11.0 [facility] Comment on above: Performed By: #### U RCX #### [facility] [address] [place] [address] Dr. Ramses Dumas ER URINE PROFILEon 2 Bilirubin Ql (U) Negative Normal NEGATIVE [facility] Comment on above: Performed By: #### U KJ 24 #### [facility] [address] [place] [address] Dr. Ramses Dumas Clarity (U) CLEAR Normal CLEAR [facility] Comment on above: Performed By: #### U KJ 24 #### [facility] [address] [place] [address] Dr. Ramses Dumas Color (U) LT. YELLOW Normal YELLOW [facility] Comment on above: Performed By: #### U KJ 24 #### [facility] [address] [place] [address] Dr. Ramses Dumas ERUAHD A micrscopic examination will be performed if indicated. Normal [facility] Comment on above: Performed By: #### U KJ 24 #### [facility] [address] [place] [address] Dr. aRmses Dumas Glucose Ql (U) Negative Normal NEGATIVE The [facility] Comment on above: Performed By: #### U KJ 24 #### [facility] [address] [place] [address] Dr. Ramses Dumas Hemoglobin Ql (U) LARGE Abnormal NEGATIVE [facility] Comment on above: Performed By: #### U KJ 24 #### [facility] [address] [place] [address] Dr. Ramses Dumas Ketones Ql (U) Negative Normal NEGATIVE The [facility] Comment on above: Performed By: #### U KJ 24 #### [facility] [address] [place] [address] Dr. Ramses Dumas LEUKOCYTES MODERATE Abnormal NEGATIVE [facility] Comment on above: Performed By: #### U KJ 24 #### [facility] [address] [place] [address] Dr. Ramses Dumas Nitrite Ql (U) Negative Normal NEGATIVE The [facility] Comment on above: Performed By: #### U KJ 24 #### [facility] [address] [place] [address] Dr. Ramses Dumas pH (U) 6.5 [pH] Normal 5-9 [facility] Comment on above: Performed By: #### U KJ 24 #### [facility] [address] [place] [address] Dr. Ramses Dumas Protein (U) [Mass/Vol] 100 mg/dL Abnormal NEGAT CHRIS/ TRACE [facility] Comment on above: Performed By: #### U KJ 24 #### [facility] [address] [place] [address] Dr. Ramses Dumas SPEC GRAVITY 1.020 Normal 1.005-<=1.[address] [place] [address] Comment on above: Performed By: #### U KJ 24 #### [facility] [address] [place] [address] Dr. Ramses Dumas UR MICRO IND INDICATED Normal [facility] Comment on above: Performed By: #### U KJ 24 #### [facility] [address] [place] [address] Dr. Ramses Dumas Urobilinogen Qn (U) 0.2 {Lucero'U}/dL Normal 0.2 - 1. 0 [facility] Comment on above: Performed By: #### U KJ 24 #### [facility] [address] [address] [address] Ramses Dumas PROF 14(COMP METB)on 022 Albumin [Mass/Vol] 3.3 g/dL Critically low 3.4-5.0 [facility] Comment on above: Performed By: #### C MP #### [facility] [address] [address] [address] Ramses Dumas Albumin/Globulin [Mass ratio] 0.8 {ratio} Normal [facility] Comment on above: Performed By: #### C MP #### [facility] [address] [address] [address] Ramses Dumas ALP [Catalytic activity/Vol] 108 U/L Normal 46-116 [facility] Comment on above: Performed By: #### C MP #### [facility] [address] [place] [address] Dr. Ramses Dumas ALT [Catalytic activity/Vol] 103 U/L Critically high 14-59 [facility] Comment on above: Performed By: #### C MP #### [facility] [address] [address] [address] Ramses Dumas Anion gap [Moles/Vol] 6.6 mmol/L Normal [facility] Comment on above: Performed By: #### C MP #### [facility] [address] [place] [address] Dr. Ramses Dumas AST [Catalytic activity/Vol] 21 U/L Normal 15-37 [facility] Comment on above: Performed By: #### C MP #### [facility] [address] [address] [address] Ramses Dumas Bilirubin [Mass/Vol] 0.2 mg/dL Normal 0.2-1.0 [facility] Comment on above: Performed By: #### C MP #### [facility] [address] [address] [address] Ramses Dumas Calcium [Mass/Vol] 9.2 mg/dL Normal 8.5-10.1 [facility] Comment on above: Performed By: #### C MP #### [facility] [address] [address] [address] Ramses Dumas Chloride [Moles/Vol] 102 mmol/L Normal 98-107 [facility] Comment on above: Performed By: #### C MP #### [facility] [address] [address] [address] Ramses Dumas CO2 [Moles/Vol] 28.8 mmol/L Normal 21.0-32.0 [facility] Comment on above: Performed By: #### C MP #### [facility] [address] [address] [address] Ramses Dumas Creatinine [Mass/Vol] 0.92 mg/dL Normal 0.55-1.02 [facility] Comment on above: Performed By: #### C MP #### [facility] [address] [place] [address] Dr. Ramses Dumas EGFR-AF KOSOVAN >60 Normal >=60 [facility] Comment on above: Performed By: #### C MP #### [facility] [address] [address] [address] Ramses Dumas EGFR-NON AF KOSOVAN >60 Normal >=60 [facility] Comment on above: Performed By: #### C MP #### [facility] [address] [place] [address] Dr. Ramses Dumas Globulin (S) [Mass/Vol] 4.1 g/dL Normal [facility] Comment on above: Performed By: #### C MP #### [facility] [address] [address] [address] Ramses Dumas Glucose [Mass/Vol] 114 mg/dL Critically high 74-106 [facility] Comment on above: Performed By: #### C MP #### [facility] [address] [place] [address] Dr. Ramses Dumas Potassium [Moles/Vol] 3.4 mmol/L Critically low 3.5-5.1 [facility] Comment on above: Performed By: #### C MP #### [facility] [address] [address] [address] Ramses Dumas Protein [Mass/Vol] 7.4 g/dL Normal 6.4-8.2 [facility] Comment on above: Performed By: #### C MP #### [facility] [address] [place] [address] Dr. Ramses Dumas Sodium [Moles/Vol] 134 mmol/L Critically low 136-145 [facility] Comment on above: Performed By: #### C MP #### [facility] [address] [place] [address] Dr. Ramses Dumas Urea nitrogen [Mass/Vol] 11.0 mg/dL Normal 7.0-18.0 [facility] Comment on above: Performed By: #### C MP #### [facility] [address] [place] [address] Dr. Ramses Dumas Urea nitrogen/Creatinine [Mass ratio] 12.0 mg/mg Normal [facility] Comment on above: Performed By: #### C MP #### [facility] [address] [place] [address] Dr. Ramses Dumas URINE MICROSCOPIC ONLYon BACTERIA MODERATE Abnormal NONE SEEN [facility] Comment on above: Performed By: #### U KJ 24 #### [facility] [address] [place] [address] Dr. Ramses Dumas Bacteria identified Cx Nom (U) INDICATED Normal [facility] Comment on above: Performed By: #### U KJ 24 #### [facility] [address] [place] [address] Dr. Ramses Dumas CAST NONE SEEN Normal NONE SEEN [facility] Comment on above: Performed By: #### U KJ 24 #### [facility] [address] [place] [address] Dr. Ramses Dumas Crystals LM Nom (Urine sed) NONE SEEN Normal NONE SEEN [facility] Comment on above: Performed By: #### U KJ 24 #### [facility] [address] [place] [address] Dr. Ramses Dumas Epithelial cells LM Ql (Urine sed) RARE Normal NONE SEEN /RARE [facility] Comment on above: Performed By: #### U KJ 24 #### [facility] [address] [place] [address] Dr. Ramses Dumas MUCOUS NONE SEEN Normal NONE SEEN [facility] Comment on above: Performed By: #### U KJ 24 #### [facility] [address] [place] [address] Dr. Ramses Dumas RBC 20-50 Abnormal 0-2 [facility] Comment on above: Performed By: #### U KJ 24 #### [facility] [address] [place] [address] Dr. Ramses Dumas WBC 5-10 Abnormal NONE SEEN [facility] Comment on above: Performed By: #### U KJ 24 #### [facility] [address] [place] [address] Dr. Ramses Dumas CULTURE BLOODon 08-25-2022 Microscopic examination of blood, culture Culture Observations: Pediatric bottle positive, only bottle drawn Culture Observations: BCID- Streptococcus agalactiae. Called to Dolly Deewy RN at 0915 on 08/23/22 Isolate 1 [...] F Tetracycline >=16 R F Normal [facility] Comment on above: Performed By: #### B LDCX2 #### [facility] [address] [place] [address] Dr. Ramses Dumas Microscopic examination of blood, [...] F Tetracycline >=16 R F Normal [facility] Comment on above: Performed By: #### C BC #### [facility] [address] [place] [address] Dr. Ramses Dumas CBC AUTO DIFFon 08-24-2022 BASO # 0.0 103/ul Normal 0.0-0.1 [facility] Comment on above: Performed By: #### C BC #### [facility] [address] [place] [address] Dr. Ramses Dumas Basophils/100 WBC (Bld) 0.1 % Critically low 0.2-2.0 [facility] Comment on above: Performed By: #### C BC #### [facility] [address] [place] [address] Dr. Ramses Dumas EO # 0.0 103/ul Normal 0.0-0.7 [facility] Comment on above: Performed By: #### C BC #### [facility] [address] [place] [address] Dr. Ramses Dumas Eosinophils/100 WBC (Bld) 0.0 % Critically low 0.9-7.0 [facility] Comment on above: Performed By: #### C BC #### [facility] [address] [place] [address] Dr. Ramses Dumas Erythrocyte distribution width (RBC) [Ratio] 13.5 % Normal 11.0-15.0 [facility] Comment on above: Performed By: #### C BC #### [facility] [address] [place] [address] Dr. Ramses Dumas Hematocrit (Bld) [Volume fraction] 33.0 % Critically low 36.0-48.0 [facility] Comment on above: Performed By: #### C BC #### [facility] [address] [place] [address] Dr. Ramses Dumas Hemoglobin (Bld) [Mass/Vol] 10.7 g/dL Critically low 12.0-16.0 [facility] Comment on above: Performed By: #### C BC #### [facility] [address] [address] [address] Ramses Dumas IG # 0.04 10e3/ul Critically high 0.00-0.03 [facility] Comment on above: Performed By: #### C BC #### [facility] [address] [address] [address] Ramses Dumas IG % 0.4 % Normal 0.0-0.5 [facility] Comment on above: Performed By: #### C BC #### [facility] [address] [address] [address] Ramses Dumas LYMPH # 0.8 103/ul Critically low 1.2-3.8 [facility] Comment on above: Performed By: #### C BC #### [facility] [address] [address] [address] Ramses Dumas Lymphocytes/100 WBC (Bld) 7.9 % Critically low 20.5-60.0 [facility] Comment on above: Performed By: #### C BC #### [facility] [address] [address] [address] Ramses Dumas MANUAL DIFF REQ NO Normal [facility] Comment on above: Performed By: #### C BC #### [facility] [address] [address] [address] Ramses Dumas MCH (RBC) [Entitic mass] 26.5 pg Critically low 26.7-34.0 [facility] Comment on above: Performed By: #### C BC #### [facility] [address] [address] [address] Ramses Dumas MCHC (RBC) [Mass/Vol] 32.4 g/dL Normal 29.9-35.2 [facility] Comment on above: Performed By: #### C BC #### [facility] [address] [address] [address] Ramses Dumas MCV (RBC) [Entitic vol] 81.7 fL Normal 81.0-99.0 [facility] Comment on above: Performed By: #### C BC #### [facility] [address] [address] [address] Ramses Dumas MONO # 0.6 103/ul Normal 0.3-0.8 [facility] Comment on above: Performed By: #### C BC #### [facility] [address] [address] [address] Ramses Dumas Monocytes/100 WBC (Bld) 6.3 % Normal 1.7-12.0 [facility] Comment on above: Performed By: #### C BC #### [facility] [address] [address] [address] Ramses Dumas NEUT # 8.6 103/ul Critically high 1.4-6.5 [facility] Comment on above: Performed By: #### C BC #### [facility] [address] [place] [address] Dr. Ramses Dumas Neutrophils/100 WBC (Bld) 85.3 % Critically high 43.0-75.0 [facility] Comment on above: Performed By: #### C BC #### [facility] [address] [place] [address] Dr. Ramses Dumas Platelet mean volume (Bld) [Entitic vol] 9.1 fL Critically low 9.5-13.5 [facility] Comment on above: Performed By: #### C BC #### [facility] [address] [place] [address] Dr. Ramses Dumas PLT 248 103/ul Normal 150-450 [facility] Comment on above: Performed By: #### C BC #### [facility] [address] [address] [address] Ramses Dumas RBC 4.04 106/ul Critically low 4.20-5.40 [facility] Comment on above: Performed By: #### C BC #### [facility] [address] [place] [address] Dr. Ramses Dumas WBC 10.1 103/ul Normal 4.0-11.0 [facility] Comment on above: Performed By: #### C BC #### [facility] [address] [place] [address] Dr. Ramses Dumas CULTURE URINEon 08-24-2022 CULTURE [...] S F Tetracycline >=16 R F Normal [facility] Comment on above: Performed By: #### U RCX #### [facility] [address] [place] [address] Dr. Ramses Dumas PROF 14(COMP METB)on 022 Albumin [Mass/Vol] 2.4 g/dL Critically low 3.4-5.0 [facility] Comment on above: Performed By: #### C VDTBH #### [facility] [address] [place] [address] Dr. Ramses Dumas Albumin/Globulin [Mass ratio] 0.7 {ratio} Normal [facility] Comment on above: Performed By: #### C VDTBH #### [facility] [address] [place] [address] Dr. Ramses Dumas ALP [Catalytic activity/Vol] 95 U/L Normal 46-116 [facility] Comment on above: Performed By: #### C VDTBH #### [facility] [address] [place] [address] Dr. Ramses Dumas ALT [Catalytic activity/Vol] 327 U/L Critically high 14-59 [facility] Comment on above: Performed By: #### C VDTBH #### [facility] [address] [place] [address] Dr. Ramses Dumas Anion gap [Moles/Vol] 8.7 mmol/L Normal [facility] Comment on above: Performed By: #### C VDTBH #### [facility] [address] [address] [address] Ramses Dumas AST [Catalytic activity/Vol] 165 U/L Critically high 15-37 [facility] Comment on above: Performed By: #### C VDTBH #### [facility] [address] [address] [address] Ramses Dumas Bilirubin [Mass/Vol] 0.4 mg/dL Normal 0.2-1.0 [facility] Comment on above: Performed By: #### C VDTBH #### [facility] [address] [address] [address] Ramses Dumas Calcium [Mass/Vol] 8.0 mg/dL Critically low 8.5-10.1 [facility] Comment on above: Performed By: #### C VDTBH #### [facility] [address] [place] [address] Dr. Ramess Dumas Chloride [Moles/Vol] 108 mmol/L Critically high 98-107 [facility] Comment on above: Performed By: #### C VDTBH #### [facility] [address] [address] [address] Ramses Dumas CO2 [Moles/Vol] 25.3 mmol/L Normal 21.0-32.0 [facility] Comment on above: Performed By: #### C VDTBH #### [facility] [address] [place] [address] Dr. Ramses Dumas Creatinine [Mass/Vol] 0.70 mg/dL Normal 0.55-1.02 [facility] Comment on above: Performed By: #### C VDTBH #### [facility] [address] [address] [address] Ramses Dumas EGFR-AF KOSOVAN >60 Normal >=60 [facility] Comment on above: Performed By: #### C VDTBH #### [facility] [address] [address] [address] Ramses Dumas EGFR-NON AF KOSOVAN >60 Normal >=60 [facility] Comment on above: Performed By: #### C VDTBH #### [facility] [address] [address] [address] Ramses Dumas Globulin (S) [Mass/Vol] 3.6 g/dL Normal [facility] Comment on above: Performed By: #### C VDTBH #### [facility] [address] [address] [address] Ramses Dumas Glucose [Mass/Vol] 160 mg/dL Critically high 74-106 [facility] Comment on above: Performed By: #### C VDTBH #### [facility] [address] [place] [address] Dr. Ramses Dumas Potassium [Moles/Vol] 4.0 mmol/L Normal 3.5-5.1 [facility] Comment on above: Performed By: #### C VDTBH #### [facility] [address] [place] [address] Dr. Ramses Dumas Protein [Mass/Vol] 6.0 g/dL Critically low 6.4-8.2 [facility] Comment on above: Performed By: #### C VDTBH #### [facility] [address] [place] [address] Dr. Ramses Dumas Sodium [Moles/Vol] 138 mmol/L Normal 136-145 [facility] Comment on above: Performed By: #### C VDTBH #### [facility] [address] [place] [address] Dr. Ramses Dumas Urea nitrogen [Mass/Vol] 6.0 mg/dL Critically low 7.0-18.0 [facility] Comment on above: Performed By: #### C VDTBH #### [facility] [address] [place] [address] Dr. Ramses Dumas Urea nitrogen/Creatinine [Mass ratio] 8.6 mg/mg Normal [facility] Comment on above: Performed By: #### C VDTBH #### [facility] [address] [place] [address] Dr. Ramses Dumas CBC AUTO DIFFon 08-23-2022 BASO # 0.0 103/ul Normal 0.0-0.1 [facility] Comment on above: Performed By: #### U RCX #### [facility] [address] [address] [address] Ramses Dumas Basophils/100 WBC (Bld) 0.2 % Normal 0.2-2.0 [facility] Comment on above: Performed By: #### U RCX #### [facility] [address] [place] [address] Dr. Ramses Dumas EO # 0.0 103/ul Normal 0.0-0.7 [facility] Comment on above: Performed By: #### U RCX #### [facility] [address] [place] [address] Dr. Ramses Dumas Eosinophils/100 WBC (Bld) 0.1 % Critically low 0.9-7.0 [facility] Comment on above: Performed By: #### U RCX #### [facility] [address] [place] [address] Dr. Ramses Dumas Erythrocyte distribution width (RBC) [Ratio] 13.4 % Normal 11.0-15.0 [facility] Comment on above: Performed By: #### U RCX #### [facility] [address] [place] [address] Dr. Ramses Dmuas Hematocrit (Bld) [Volume fraction] 34.1 % Critically low 36.0-48.0 [facility] Comment on above: Performed By: #### U RCX #### [facility] [address] [place] [address] Dr. Ramses Dumas Hemoglobin (Bld) [Mass/Vol] 10.9 g/dL Critically low 12.0-16.0 [facility] Comment on above: Performed By: #### U RCX #### [facility] [address] [place] [address] Dr. Ramses Dumas IG # 0.02 10e3/ul Normal 0.00-0.03 [facility] Comment on above: Performed By: #### U RCX #### [facility] [address] [place] [address] Dr. Ramses Dumas IG % 0.2 % Normal 0.0-0.5 [facility] Comment on above: Performed By: #### U RCX #### [facility] [address] [address] [address] Ramses Dumas LYMPH # 0.7 103/ul Critically low 1.2-3.8 [facility] Comment on above: Performed By: #### U RCX #### [facility] [address] [address] [address] Ramses Dumas Lymphocytes/100 WBC (Bld) 6.9 % Critically low 20.5-60.0 [facility] Comment on above: Performed By: #### U RCX #### [facility] [address] [address] [address] Ramses Dumas MANUAL DIFF REQ NO Normal [facility] Comment on above: Performed By: #### U RCX #### [facility] [address] [address] [address] Ramses Dumas MCH (RBC) [Entitic mass] 26.1 pg Critically low 26.7-34.0 [facility] Comment on above: Performed By: #### U RCX #### [facility] [address] [address] [address] Ramses Dumas MCHC (RBC) [Mass/Vol] 32.0 g/dL Normal 29.9-35.2 [facility] Comment on above: Performed By: #### U RCX #### [facility] [address] [address] [address] Ramses Dumas MCV (RBC) [Entitic vol] 81.8 fL Normal 81.0-99.0 [facility] Comment on above: Performed By: #### U RCX #### [facility] [address] [address] [address] Ramses Dumas MONO # 0.6 103/ul Normal 0.3-0.8 [facility] Comment on above: Performed By: #### U RCX #### [facility] [address] [address] [address] Ramses Dumas Monocytes/100 WBC (Bld) 5.9 % Normal 1.7-12.0 [facility] Comment on above: Performed By: #### U RCX #### [facility] [address] [address] [address] Ramses Dumas NEUT # 8.2 103/ul Critically high 1.4-6.5 [facility] Comment on above: Performed By: #### U RCX #### [facility] [address] [address] [address] Ramses Dumas Neutrophils/100 WBC (Bld) 86.7 % Critically high 43.0-75.0 [facility] Comment on above: Performed By: #### U RCX #### [facility] [address] [address] [address] Ramses Dumas Platelet mean volume (Bld) [Entitic vol] 9.4 fL Critically low 9.5-13.5 [facility] Comment on above: Performed By: #### U RCX #### [facility] [address] [address] [address] Ramses Dumas PLT 235 103/ul Normal 150-450 [facility] Comment on above: Performed By: #### U RCX #### [facility] [address] [address] [address] Ramses Dumas RBC 4.17 106/ul Critically low 4.20-5.40 [facility] Comment on above: Performed By: #### U RCX #### [facility] [address] [address] [address] Ramses Dumas WBC 9.5 103/ul Normal 4.0-11.0 [facility] Comment on above: Performed By: #### U RCX #### [facility] [address] [address] [address] Ramses Dumas PROF 14(COMP METB)on 022 Albumin [Mass/Vol] 2.6 g/dL Critically low 3.4-5.0 [facility] Comment on above: Performed By: #### U KJ 24 #### [facility] [address] [place] [address] Dr. Ramses Dumas Albumin/Globulin [Mass ratio] 0.8 {ratio} Normal [facility] Comment on above: Performed By: #### U KJ 24 #### [facility] [address] [address] [address] Ramses Dumas ALP [Catalytic activity/Vol] 82 U/L Normal 46-116 [facility] Comment on above: Performed By: #### U KJ 24 #### [facility] [address] [address] [address] Ramses Dumas ALT [Catalytic activity/Vol] 257 U/L Critically high 14-59 [facility] Comment on above: Performed By: #### U KJ 24 #### [facility] [address] [address] [address] Ramses Dumas Anion gap [Moles/Vol] 10.3 mmol/L Normal [facility] Comment on above: Performed By: #### U KJ 24 #### [facility] [address] [address] [address] Ramses Dumas AST [Catalytic activity/Vol] 196 U/L Critically high 15-37 [facility] Comment on above: Performed By: #### U KJ 24 #### [facility] [address] [address] [address] Ramses Dumas Bilirubin [Mass/Vol] 0.5 mg/dL Normal 0.2-1.0 [facility] Comment on above: Performed By: #### U KJ 24 #### [facility] [address] [address] [address] Ramses Dumas Calcium [Mass/Vol] 7.8 mg/dL Critically low 8.5-10.1 [facility] Comment on above: Performed By: #### U KJ 24 #### [facility] [address] [address] [address] Ramses Dumas Chloride [Moles/Vol] 104 mmol/L Normal 98-107 [facility] Comment on above: Performed By: #### U KJ 24 #### [facility] [address] [address] [address] Ramses Dumas CO2 [Moles/Vol] 24.4 mmol/L Normal 21.0-32.0 [facility] Comment on above: Performed By: #### U KJ 24 #### [facility] [address] [address] [address] Ramses Dumas Creatinine [Mass/Vol] 1.09 mg/dL Critically high 0.55-1.02 [facility] Comment on above: Performed By: #### U KJ 24 #### [facility] [address] [address] [address] Ramses Dumas EGFR-AF KOSOVAN >60 Normal >=60 [facility] Comment on above: Performed By: #### U KJ 24 #### [facility] [address] [address] [address] Ramses Dumas EGFR-NON AF KOSOVAN 59 mL/min/1.73m2 Critically low >=60 [facility] Comment on above: Performed By: #### U KJ 24 #### [facility] [address] [address] [address] Ramses Dumas Globulin (S) [Mass/Vol] 3.3 g/dL Normal [facility] Comment on above: Performed By: #### U KJ 24 #### [facility] [address] [address] [address] Ramses Dumas Glucose [Mass/Vol] 143 mg/dL Critically high 74-106 [facility] Comment on above: Performed By: #### U KJ 24 #### [facility] [address] [address] [address] Ramses Dumas Potassium [Moles/Vol] 3.7 mmol/L Normal 3.5-5.1 [facility] Comment on above: Performed By: #### U KJ 24 #### [facility] [address] [address] [address] Ramses Dumas Protein [Mass/Vol] 5.9 g/dL Critically low 6.4-8.2 [facility] Comment on above: Performed By: #### U KJ 24 #### [facility] [address] [address] [address] Ramses Dumas Sodium [Moles/Vol] 135 mmol/L Critically low 136-145 [facility] Comment on above: Performed By: #### U KJ 24 #### [facility] [address] [address] [address] Ramses Dumas Urea nitrogen [Mass/Vol] 10.0 mg/dL Normal 7.0-18.0 [facility] Comment on above: Performed By: #### U KJ 24 #### [facility] [address] [place] [address] Dr. Ramses Dumas Urea nitrogen/Creatinine [Mass ratio] 9.2 mg/mg Normal [facility] Comment on above: Performed By: #### U KJ 24 #### [facility] [address] [place] [address] Dr. Ramses Dumas BLOOD CULTURE ID PANELon A. baumannii Not detected Normal NOT DETECTED [facility] Comment on above: Performed By: #### C VDTBH #### [facility] [address] [place] [address] Dr. Ramses Dumas Bacteriodes fragilis Not detected Normal NOT DETECTED [facility] Comment on above: Performed By: #### C VDTBH #### [facility] [address] [place] [address] Dr. Ramses BAKER CONTROLS PASSED Normal [facility] Comment on above: Performed By: #### C VDTBH #### [facility] [address] [place] [address] Dr. Ramses Dumas BCIDBTHD BLOOD CULTURE BOTTLE INFORMATION Normal [facility] Comment on above: Performed By: #### C VDTBH #### [facility] [address] [place] [address] Dr. Ramses Dumas BCIDHD1 ANTIMICROBIAL RESISTANCE GENES Normal [facility] Comment on above: Performed By: #### C VDTBH #### [facility] [address] [place] [address] Dr. Ramses Dumas BCIDHD2 SEE BELOW Normal [facility] Comment on above: Result Comment: Note : Antimicrobial resitance can occur via multiple mechanisms. A Not Detected result for the [employer] antomicrobial resistance gene assays does not indicate antimicrobial susceptibility. Subculturing is required for species identification and susceptibility testing of isolates. Performed By: #### C VDTBH #### [facility] [address] [place] [address] Dr. Ramses Dumas BCIDHD3 Positive Normal [facility] Comment on above: Performed By: #### C VDTBH #### [facility] [address] [place] [address] Dr. Ramses Dumas BCIDHD4 Negative Normal [facility] Comment on above: Performed By: #### C VDTBH #### [facility] [address] [place] [address] Dr. Ramses Dumas BCIDHD5 YEAST [facility] Comment on above: Performed By: #### C VDTBH #### [facility] [address] [place] [address] Dr. Ramses Garcia Set: Set 1 [facility] Comment on above: Performed By: #### C VDTBH #### [facility] [address] [place] [address] Dr. Ramses Dumas Bottle: Pediatric Normal [facility] Comment on above: Performed By: #### C VDTBH #### [facility] [address] [place] [address] Dr. Ramses Vincent. neoformans/gattii Not detected Normal NOT DETECTED [facility] Comment on above: Performed By: #### C VDTBH #### [facility] [address] [place] [address] Dr. Ramses Dumas Kim albicans Not detected Normal NOT DETECTED [facility] Comment on above: Performed By: #### C VDTBH #### [facility] [address] [place] [address] Dr. Ramses Dumas Kim auris Not detected Normal NOT DETECTED The [facility] Comment on above: Performed By: #### C VDTBH #### [facility] [address] [place] [address] Dr. Ramses Dumas Kim glabrata Not detected Normal NOT DETECTED [facility] Comment on above: Performed By: #### C VDTBH #### [facility] [address] [place] [address] Dr. Ramses Dumas Kim Krusei Not detected Normal NOT DETECTED The [facility] Comment on above: Performed By: #### C VDTBH #### [facility] [address] [place] [address] Dr. Ramses Dumas Kim Parapsilosis Not detected Normal NOT DETECTED [facility] Comment on above: Performed By: #### C VDTBH #### [facility] [address] [place] [address] Dr. Ramses Dumas Kim Tropicalis Not detected Normal NOT DETECTED [facility] Comment on above: Performed By: #### C VDTBH #### [facility] [address] [place] [address] Dr. Ramses Dumas CTX-M Resistant Gene Not Applicable Normal NOT DETECTE D [facility] Comment on above: Performed By: #### C VDTBH #### [facility] [address] [place] [address] Dr. Ramses Dumas E. Cloacae complex Not detected Normal NOT DETECTED [facility] Comment on above: Performed By: #### C VDTBH #### [facility] [address] [place] [address] Dr. Ramses Dumas E. faecalis Not detected Normal NOT DETECTED The [facility] Comment on above: Performed By: #### C VDTBH #### [facility] [address] [place] [address] Dr. Ramses Dumas E. faecium Not detected Normal NOT DETECTED The [facility] Comment on above: Performed By: #### C VDTBH #### [facility] [address] [place] [address] Dr. Ramses Dumas Enterobacteriaceae Not detected Normal NOT DETECTED [facility] Comment on above: Performed By: #### C VDTBH #### [facility] [address] [place] [address] Dr. Ramses Dumas Escherichia coli Not detected Normal NOT DETECTED [facility] Comment on above: Performed By: #### C VDTBH #### [facility] [address] [place] [address] Dr. Ramses Dumas H. influenzae Not detected Normal NOT DETECTED The [facility] Comment on above: Performed By: #### C VDTBH #### [facility] [address] [place] [address] Dr. Ramses Dumas IMP Resistant Gene Not Applicable Normal NOT DETECTED [facility] Comment on above: Performed By: #### C VDTBH #### [facility] [address] [place] [address] Dr. Ramses Betancourt. oxytoca Not detected Normal NOT DETECTED The [facility] Comment on above: Performed By: #### C VDTBH #### [facility] [address] [place] [address] Dr. Ramses Dumas K. pneumoniae Not detected Normal NOT DETECTED The [facility] Comment on above: Performed By: #### C VDTBH #### [facility] [address] [place] [address] Dr. Ramses Dumas Klebsiella aerogenes Not detected Normal NOT DETECTED [facility] Comment on above: Performed By: #### C VDTBH #### [facility] [address] [place] [address] Dr. Ramses Dumas KPC Resistant Gene Not detected Normal NOT DETECTED [facility] Comment on above: Performed By: #### C VDTBH #### [facility] [address] [place] [address] Dr. Ramses Dumas List. monocytogenes Not detected Normal NOT DETECTED [facility] Comment on above: Performed By: #### C VDTBH #### [facility] [address] [place] [address] Dr. Ramses Dumas Mcr-1 Resistant Gene Not Applicable Normal NOT DETECTE D [facility] Comment on above: Performed By: #### C VDTBH #### [facility] [address] [place] [address] Dr. Ramses Dumas mecA/C Not Applicable Normal NOT DETECTED The [facility] Comment on above: Performed By: #### C VDTBH #### [facility] [address] [place] [address] Dr. Ramses Dumas mecA/C MREJ Not Applicable Normal NOT DETECTED The [facility] Comment on above: Performed By: #### C VDTBH #### [facility] [address] [place] [address] Dr. Ramses Dumas N. meningitidis Not detected Normal NOT DETECTED The [facility] Comment on above: Performed By: #### C VDTBH #### [facility] [address] [place] [address] Dr. Ramses Dumas NDM Resistant Gene Not Applicable Normal NOT DETECTED [facility] Comment on above: Performed By: #### C VDTBH #### [facility] [address] [place] [address] Dr. Ramses Dumas Oxa-48-like Not Applicable Normal NOT DETECTED The [facility] Comment on above: Performed By: #### C VDTBH #### [facility] [address] [place] [address] Dr. Ramses Dumas Proteus Not detected Normal NOT DETECTED The [facility] Comment on above: Performed By: #### C VDTBH #### [facility] [address] [place] [address] Dr. Ramses Dumas Pseud. aeruginosa Not detected Normal NOT DETECTED [facility] Comment on above: Performed By: #### C VDTBH #### [facility] [address] [place] [address] Dr. Ramses Dumas S. maltophilia Not detected Normal NOT DETECTED The [facility] Comment on above: Performed By: #### C VDTBH #### [facility] [address] [place] [address] Dr. Ramses Dumas Salmonella Not detected Normal NOT DETECTED The [facility] Comment on above: Performed By: #### C VDTBH #### [facility] [address] [place] [address] Dr. Ramses Dumas Seratia marcescens Not detected Normal NOT DETECTED [facility] Comment on above: Performed By: #### C VDTBH #### [facility] [address] [place] [address] Dr. Ramses Dumas Site: unknown/not given Normal [facility] Comment on above: Performed By: #### C VDTBH #### [facility] [address] [place] [address] Dr. Ramses Dumas Stapphillip. aureus Not detected Normal NOT DETECTED The [facility] Comment on above: Performed By: #### C VDTBH #### [facility] [address] [place] [address] Dr. Ramses Dumas Stapphillip. epidermidis Not detected Normal NOT DETECTED [facility] Comment on above: Performed By: #### C VDTBH #### [facility] [address] [place] [address] Dr. Ramses Dumas Stapphillip. lugdunensis Not detected Normal NOT DETECTED [facility] Comment on above: Performed By: #### C VDTBH #### [facility] [address] [place] [address] Dr. Ramses Dumas Staphylococcus Not detected Normal NOT DETECTED [facility] Comment on above: Performed By: #### C VDTBH #### [facility] [address] [place] [address] Dr. Ramses Dumas Strep. agalactiae Detected Critically abnormal NOT DETECTED [facility] Comment on above: Performed By: #### C VDTBH #### [facility] [address] [place] [address] Dr. Ramses Dumas Strep. pneumoniae Not detected Normal NOT DETECTED [facility] Comment on above: Performed By: #### C VDTBH #### [facility] [address] [place] [address] Dr. Ramses Dumas Strep. pyogenes Not detected Normal NOT DETECTED The [facility] Comment on above: Performed By: #### C VDTBH #### [facility] [address] [place] [address] Dr. Ramses Dumas Streptococcus Detected Critically abnormal NOT DETECTED [facility] Comment on above: Performed By: #### C VDTBH #### [facility] [address] [place] [address] Dr. Ramses Dumas Efrain/B Resist. Gene Not detected Normal NOT DETECTED [facility] Comment on above: Performed By: #### C VDTBH #### [facility] [address] [place] [address] Dr. Ramses Dumas VIM Resistant Gene Not Applicable Normal NOT DETECTED [facility] Comment on above: Performed By: #### C VDTBH #### [facility] [address] [place] [address] Dr. Ramses Dumas CBC AUTO DIFFon 08-22-2022 BASO # 0.1 103/ul Normal 0.0-0.1 [facility] Comment on above: Performed By: #### U KJ 24 #### [facility] [address] [place] [address] Dr. Ramses Dumas Basophils/100 WBC (Bld) 0.7 % Normal 0.2-2.0 [facility] Comment on above: Performed By: #### U KJ 24 #### [facility] [address] [place] [address] Dr. Ramses Dumas EO # 0.1 103/ul Normal 0.0-0.7 [facility] Comment on above: Performed By: #### U KJ 24 #### [facility] [address] [place] [address] Dr. Ramses Dumas Eosinophils/100 WBC (Bld) 1.7 % Normal 0.9-7.0 [facility] Comment on above: Performed By: #### U KJ 24 #### [facility] [address] [place] [address] Dr. Ramses Dumas Erythrocyte distribution width (RBC) [Ratio] 13.2 % Normal 11.0-15.0 [facility] Comment on above: Performed By: #### U KJ 24 #### [facility] [address] [place] [address] Dr. Ramses Dumas Hematocrit (Bld) [Volume fraction] 39.8 % Normal 36.0-48.0 [facility] Comment on above: Performed By: #### U KJ 24 #### [facility] [address] [place] [address] Dr. Ramses Dumas Hemoglobin (Bld) [Mass/Vol] 12.9 g/dL Normal 12.0-16.0 [facility] Comment on above: Performed By: #### U KJ 24 #### [facility] [address] [address] [address] Ramses Dumas IG # 0.02 10e3/ul Normal 0.00-0.03 [facility] Comment on above: Performed By: #### U KJ 24 #### [facility] [address] [place] [address] Dr. Ramses Dumas IG % 0.2 % Normal 0.0-0.5 [facility] Comment on above: Performed By: #### U KJ 24 #### [facility] [address] [place] [address] Dr. Ramses Dumas LYMPH # 3.2 103/ul Normal 1.2-3.8 [facility] Comment on above: Performed By: #### U KJ 24 #### [facility] [address] [place] [address] Dr. Ramses Dumas Lymphocytes/100 WBC (Bld) 40.0 % Normal 20.5-60.0 [facility] Comment on above: Performed By: #### U KJ 24 #### [facility] [address] [place] [address] Dr. Ramses Dumas MANUAL DIFF REQ NO Normal [facility] Comment on above: Performed By: #### U KJ 24 #### [facility] [address] [place] [address] Dr. Ramses Dumas MCH (RBC) [Entitic mass] 26.6 pg Critically low 26.7-34.0 [facility] Comment on above: Performed By: #### U KJ 24 #### [facility] [address] [place] [address] Dr. Ramses Dumas MCHC (RBC) [Mass/Vol] 32.4 g/dL Normal 29.9-35.2 [facility] Comment on above: Performed By: #### U KJ 24 #### [facility] [address] [place] [address] Dr. Ramses Dumas MCV (RBC) [Entitic vol] 82.1 fL Normal 81.0-99.0 [facility] Comment on above: Performed By: #### U KJ 24 #### [facility] [address] [place] [address] Dr. Ramses Dumas MONO # 0.6 103/ul Normal 0.3-0.8 [facility] Comment on above: Performed By: #### U KJ 24 #### [facility] [address] [place] [address] Dr. Ramses Dumas Monocytes/100 WBC (Bld) 7.5 % Normal 1.7-12.0 [facility] Comment on above: Performed By: #### U KJ 24 #### [facility] [address] [place] [address] Dr. Ramses Dumas NEUT # 4.0 103/ul Normal 1.4-6.5 [facility] Comment on above: Performed By: #### U KJ 24 #### [facility] [address] [place] [address] Dr. Ramses Dumas Neutrophils/100 WBC (Bld) 49.9 % Normal 43.0-75.0 [facility] Comment on above: Performed By: #### U KJ 24 #### [facility] [address] [place] [address] Dr. Ramses Dumas Platelet mean volume (Bld) [Entitic vol] 9.3 fL Critically low 9.5-13.5 [facility] Comment on above: Performed By: #### U KJ 24 #### [facility] [address] [place] [address] Dr. Ramses Dumas PLT 354 103/ul Normal 150-450 [facility] Comment on above: Performed By: #### U KJ 24 #### [facility] [address] [place] [address] Dr. Ramses Dumas RBC 4.85 106/ul Normal 4.20-5.40 [facility] Comment on above: Performed By: #### U KJ 24 #### [facility] [address] [place] [address] Dr. Ramses Dumas WBC 8.1 103/ul Normal 4.0-11.0 [facility] Comment on above: Performed By: #### U KJ 24 #### [facility] [address] [place] [address] ABD/PELVIS WO CONon [...] KESHIA IRIZARRY Date: 2022-08-22 07:04 Normal [facility] Covid-19 PCR (CVDTB)on SARS-CoV-2 (COVID-19) RNA FRANCESCA+probe Ql (Unsp spec) Not detected Normal NOT DETECTED [facility] Comment on above: Result Comment: When diagnostic [...] for this test is supported by the [employer] Instructor of Health and Human Service's declaration [...] used). Performed By: #### C MP #### [facility] [address] [place] [address] Dr. Ramses Dumas ER URINE PROFILEon 2 Bilirubin Ql (U) Negative Normal NEGATIVE [facility] Comment on above: Performed By: #### U RCX #### [facility] [address] [place] [address] Dr. Ramses Dumas Clarity (U) CLEAR Normal CLEAR [facility] Comment on above: Performed By: #### U RCX #### [facility] [address] [place] [address] Dr. Ramses Dumas Color (U) LT. YELLOW Normal YELLOW [facility] Comment on above: Performed By: #### U RCX #### [facility] [address] [place] [address] Dr. Ramses Dumas ERUWalter A micrscopic examination will be performed if indicated. Normal [facility] Comment on above: Performed By: #### U RCX #### [facility] [address] [place] [address] Dr. Ramses Dumas Glucose Ql (U) Negative Normal NEGATIVE The [facility] Comment on above: Performed By: #### U RCX #### [facility] [address] [place] [address] Dr. Ramses Dumas Hemoglobin Ql (U) SMALL Abnormal NEGATIVE The [facility] Comment on above: Performed By: #### U RCX #### [facility] [address] [place] [address] Dr. Ramses Dumas Ketones Ql (U) Negative Normal NEGATIVE The [facility] Comment on above: Performed By: #### U RCX #### [facility] [address] [place] [address] Dr. Ramses Dumas LEUKOCYTES SMALL Abnormal NEGATIVE [facility] Comment on above: Performed By: #### U RCX #### [facility] [address] [place] [address] Dr. Ramses Dumas Nitrite Ql (U) Negative Normal NEGATIVE The [facility] Comment on above: Performed By: #### U RCX #### [facility] [address] [place] [address] Dr. Ramses Dumas pH (U) 7.0 [pH] Normal 5-9 [facility] Comment on above: Performed By: #### U RCX #### [facility] [address] [place] [address] Dr. Ramses Dumas Protein (U) [Mass/Vol] 30 mg/dL Abnormal NEGAT CHRIS/ TRACE [facility] Comment on above: Performed By: #### U RCX #### [facility] [address] [place] [address] Dr. Ramses Dumas SPEC GRAVITY 1.020 Normal 1.005-<=1.02 5 [facility] Comment on above: Performed By: #### U RCX #### [facility] [address] [place] [address] Dr. Ramses Dumas UR MICRO IND INDICATED Normal [facility] Comment on above: Performed By: #### U RCX #### [facility] [address] [place] [address] Dr. Ramses Dumas Urobilinogen Qn (U) 0.2 {Lucero'U}/dL Normal 0.2 - 1. 0 [facility] Comment on above: Performed By: #### U RCX #### [facility] [address] [place] [address] Dr. Ramses Dumas LACTATE/LACTIC ACIDon 2021 Lactate [Moles/Vol] 2.3 mmol/L Critically high 0.4-1.9 [facility] Comment on above: Performed By: #### U RCX #### [facility] [address] [place] [address] Dr. Ramses Dumas URon 08-22-2022 , QUAL Negative Normal NEGATIVE [facility] Comment on above: Performed By: #### U RCX #### [facility] [address] [address] [address] Ramses Dumas PROF 14(COMP METB)on 022 Albumin [Mass/Vol] 3.5 g/dL Normal 3.4-5.0 [facility] Comment on above: Performed By: #### U RCX #### [facility] [address] [address] [address] Ramses Dumas Albumin/Globulin [Mass ratio] 0.9 {ratio} Normal [facility] Comment on above: Performed By: #### U RCX #### [facility] [address] [address] [address] Ramses Dumas ALP [Catalytic activity/Vol] 92 U/L Normal 46-116 [facility] Comment on above: Performed By: #### U RCX #### [facility] [address] [place] [address] Dr. Ramses Dumas ALT [Catalytic activity/Vol] 139 U/L Critically high 14-59 [facility] Comment on above: Performed By: #### U RCX #### [facility] [address] [address] [address] Ramses Dumas Anion gap [Moles/Vol] 10.2 mmol/L Normal [facility] Comment on above: Performed By: #### U RCX #### [facility] [address] [address] [address] Ramses Dumas AST [Catalytic activity/Vol] 112 U/L Critically high 15-37 [facility] Comment on above: Performed By: #### U RCX #### [facility] [address] [address] [address] Ramses Dumas Bilirubin [Mass/Vol] 0.2 mg/dL Normal 0.2-1.0 [facility] Comment on above: Performed By: #### U RCX #### [facility] [address] [address] [address] Ramses Dumas Calcium [Mass/Vol] 8.8 mg/dL Normal 8.5-10.1 [facility] Comment on above: Performed By: #### U RCX #### [facility] [address] [address] [address] Ramses Dumas Chloride [Moles/Vol] 105 mmol/L Normal 98-107 [facility] Comment on above: Performed By: #### U RCX #### [facility] [address] [address] [address] Ramses Dumas CO2 [Moles/Vol] 26.3 mmol/L Normal 21.0-32.0 [facility] Comment on above: Performed By: #### U RCX #### [facility] [address] [address] [address] Ramses Dumas Creatinine [Mass/Vol] 0.95 mg/dL Normal 0.55-1.02 [facility] Comment on above: Performed By: #### U RCX #### [facility] [address] [place] [address] Dr. Ramses Dumas EGFR-AF KOSOVAN >60 Normal >=60 [facility] Comment on above: Performed By: #### U RCX #### [facility] [address] [address] [address] Ramses Dumas EGFR-NON AF KOSOVAN >60 Normal >=60 [facility] Comment on above: Performed By: #### U RCX #### [facility] [address] [address] [address] Ramses Dumas Globulin (S) [Mass/Vol] 3.9 g/dL Normal [facility] Comment on above: Performed By: #### U RCX #### [facility] [address] [address] [address] Ramses Dumas Glucose [Mass/Vol] 137 mg/dL Critically high 74-106 [facility] Comment on above: Performed By: #### U RCX #### [facility] [address] [address] [address] Ramses Dmuas Potassium [Moles/Vol] 3.5 mmol/L Normal 3.5-5.1 [facility] Comment on above: Performed By: #### U RCX #### [facility] [address] [address] [address] Ramses Dumas Protein [Mass/Vol] 7.4 g/dL Normal 6.4-8.2 [facility] Comment on above: Performed By: #### U RCX #### [facility] [address] [address] [address] Ramses Dumas Sodium [Moles/Vol] 138 mmol/L Normal 136-145 [facility] Comment on above: Performed By: #### U RCX #### [facility] [address] [place] [address] Dr. Ramses Dumas Urea nitrogen [Mass/Vol] 11.0 mg/dL Normal 7.0-18.0 [facility] Comment on above: Performed By: #### U RCX #### [facility] [address] [place] [address] Dr. Ramses Dumas Urea nitrogen/Creatinine [Mass ratio] 11.6 mg/mg Normal [facility] Comment on above: Performed By: #### U RCX #### [facility] [address] [place] [address] Dr. Ramses Dumas URINE MICROSCOPIC ONLYon BACTERIA LARGE Abnormal NONE SEEN [facility] Comment on above: Performed By: #### U RCX #### [facility] [address] [place] [address] Dr. Ramses Dumas Bacteria identified Cx Nom (U) CX ALREADY ORDERED Normal [facility] Comment on above: Performed By: #### U RCX #### [facility] [address] [address] [address] Ramses Dumas CAST NONE SEEN Normal NONE SEEN [facility] Comment on above: Performed By: #### U RCX #### [facility] [address] [place] [address] Dr. Ramses Dumas Crystals LM Nom (Urine sed) NONE SEEN Normal NONE SEEN [facility] Comment on above: Performed By: #### U RCX #### [facility] [address] [place] [address] Dr. Ramses Dumas Epithelial cells LM Ql (Urine sed) MANY Abnormal NONE SEEN /RARE [facility] Comment on above: Performed By: #### U RCX #### [facility] [address] [place] [address] Dr. Ramses Dumas MUCOUS NONE SEEN Normal NONE SEEN [facility] Comment on above: Performed By: #### U RCX #### [facility] [address] [place] [address] Dr. Ramses Dumas RBC 5-10 Abnormal 0-2 [facility] Comment on above: Performed By: #### U RCX #### [facility] [address] [place] [address] Dr. Ramses Dumas WBC 50-75 Abnormal NONE SEEN [facility] Comment on above: Performed By: #### U RCX #### [facility] [address] [place] [address] Dr. Ramses Dumas CULTURE URINEon 08-15-2022 CULTURE [...] F Tetracycline >=16 R F Normal [facility] Comment on above: Performed By: #### U RCX #### [facility] [address] [place] [address] Dr. Ramses Dumas ACETAMINOPHENon 08-13-2022 Acetaminophen [Mass/Vol] ug/mL Critically low 10.0-30.0 [facility] Comment on above: Performed By: #### U RCX #### [facility] [address] [place] [address] Dr. Ramses Dumas CBC AUTO DIFFon 08-13-2022 BASO # 0.1 103/ul Normal 0.0-0.1 [facility] Comment on above: Performed By: #### C VDTBH #### [facility] [address] [place] [address] Dr. Ramses Dumas Basophils/100 WBC (Bld) 0.8 % Normal 0.2-2.0 [facility] Comment on above: Performed By: #### C VDTBH #### [facility] [address] [place] [address] Dr. Ramses Dumas EO # 0.1 103/ul Normal 0.0-0.7 [facility] Comment on above: Performed By: #### C VDTBH #### [facility] [address] [place] [address] Dr. Ramses Dumas Eosinophils/100 WBC (Bld) 1.6 % Normal 0.9-7.0 [facility] Comment on above: Performed By: #### C VDTBH #### [facility] [address] [place] [address] Dr. Ramses Dumas Erythrocyte distribution width (RBC) [Ratio] 13.3 % Normal 11.0-15.0 [facility] Comment on above: Performed By: #### C VDTBH #### [facility] [address] [place] [address] Dr. Ramses Dumas Hematocrit (Bld) [Volume fraction] 40.6 % Normal 36.0-48.0 [facility] Comment on above: Performed By: #### C VDTBH #### [facility] [address] [place] [address] Dr. Ramses Dumas Hemoglobin (Bld) [Mass/Vol] 13.2 g/dL Normal 12.0-16.0 [facility] Comment on above: Performed By: #### C VDTBH #### [facility] [address] [place] [address] Dr. Ramses Dumas IG # 0.01 10e3/ul Normal 0.00-0.03 [facility] Comment on above: Performed By: #### C VDTBH #### [facility] [address] [place] [address] Dr. Ramess Dumas IG % 0.2 % Normal 0.0-0.5 [facility] Comment on above: Performed By: #### C VDTBH #### [facility] [address] [place] [address] Dr. Ramses Dumas LYMPH # 2.4 103/ul Normal 1.2-3.8 [facility] Comment on above: Performed By: #### C VDTBH #### [facility] [address] [place] [address] Dr. Ramses Dumas Lymphocytes/100 WBC (Bld) 37.7 % Normal 20.5-60.0 [facility] Comment on above: Performed By: #### C VDTBH #### [facility] [address] [place] [address] Dr. Ramses Dumas MANUAL DIFF REQ NO Normal [facility] Comment on above: Performed By: #### C VDTBH #### [facility] [address] [place] [address] Dr. Ramses Dumas MCH (RBC) [Entitic mass] 26.7 pg Normal 26.7-34.0 [facility] Comment on above: Performed By: #### C VDTBH #### [facility] [address] [place] [address] Dr. Ramses Dumas MCHC (RBC) [Mass/Vol] 32.5 g/dL Normal 29.9-35.2 [facility] Comment on above: Performed By: #### C VDTBH #### [facility] [address] [place] [address] Dr. Ramses Dumas MCV (RBC) [Entitic vol] 82.0 fL Normal 81.0-99.0 [facility] Comment on above: Performed By: #### C VDTBH #### [facility] [address] [place] [address] Dr. Ramses Dumas MONO # 0.6 103/ul Normal 0.3-0.8 [facility] Comment on above: Performed By: #### C VDTBH #### [facility] [address] [place] [address] Dr. Ramses Dumas Monocytes/100 WBC (Bld) 8.6 % Normal 1.7-12.0 [facility] Comment on above: Performed By: #### C VDTBH #### [facility] [address] [place] [address] Dr. Ramses Dumas NEUT # 3.3 103/ul Normal 1.4-6.5 [facility] Comment on above: Performed By: #### C VDTBH #### [facility] [address] [place] [address] Dr. Ramses Dumas Neutrophils/100 WBC (Bld) 51.1 % Normal 43.0-75.0 [facility] Comment on above: Performed By: #### C VDTBH #### [facility] [address] [place] [address] Dr. Ramses Dumas Platelet mean volume (Bld) [Entitic vol] 8.7 fL Critically low 9.5-13.5 [facility] Comment on above: Performed By: #### C VDTBH #### [facility] [address] [place] [address] Dr. Ramses Dumas PLT 409 103/ul Normal 150-450 [facility] Comment on above: Performed By: #### C VDTBH #### [facility] [address] [place] [address] Dr. Ramses Dumas RBC 4.95 106/ul Normal 4.20-5.40 [facility] Comment on above: Performed By: #### C VDTBH #### [facility] [address] [place] [address] Dr. Ramses Dumas WBC 6.4 103/ul Normal 4.0-11.0 [facility] Comment on above: Performed By: #### C VDTBH #### [facility] [address] [place] [address] Dr. Ramses Dumas Covid-19 PCR ([facility])on 07-20 SARS-CoV-2 (COVID-19) RNA FRANCESCA+probe Ql (Unsp spec) Not detected Normal NOT DETECTED [facility] Comment on above: Result Comment: When diagnostic [...] for this test is supported by the [place] of Health and Human Service's declaration that [...] used). Performed By: #### C VDTB #### [facility] [address] [place] [address] Dr. Ramses Dumas DRUG SCREEN RAPID (URINE)on 08-13-2022 AMP Negative Normal NEGATIVE [facility] Comment on above: Performed By: #### C BC #### [facility] [address] [place] [address] Dr. Ramses Dumas BAR Negative Normal NEGATIVE [facility] Comment on above: Performed By: #### C BC #### [facility] [address] [place] [address] Dr. Ramses Dumas BUP Negative Normal NEGATIVE [facility] Comment on above: Performed By: #### C BC #### [facility] [address] [place] [address] Dr. Ramses Dumas BZO Negative Normal NEGATIVE [facility] Comment on above: Performed By: #### C BC #### [facility] [address] [place] [address] Dr. Ramses Dumas ODILIA Negative Normal NEGATIVE [facility] Comment on above: Performed By: #### C BC #### [facility] [address] [place] [address] Dr. Ramses Dumas CUT-OFFS SEE BELOW Normal [facility] Comment on above: Result Comment: AMP (Amphetamine): 500ng/mL, BAR (Barbituates): 200 ng/mL, BZO (Benzodiazepines): 150 ng/mL, BUP (Buprenorphine): 10 ng/mL, ODILIA (Cocaine): 150 ng/mL, mAMP (Methamphetamine): 500 ng/mL, MTD (Methadone): 200 ng/mL, OPI (Opiates): 100 ng/mL, OXY (Oxycodone): 100 ng/mL, PCP (Phencyclidine): 25 ng/mL, PPX (Propoxyphene): 300 ng/mL, THC (Cannabinoids): 50 ng/mL, TCA (Trycyclic Antidepressants): 300 ng/mL Performed By: #### C BC #### [facility] [address] [place] [address] Dr. Ramses Dumas DRUG CUT HEADER DRUG CLASS TEST SYST EM CUT-OFF CONCENTRATIONS ARE FOLLOWS: Normal [facility] Comment on above: Performed By: #### C BC #### [facility] [address] [place] [address] Dr. Ramses Dumas mAMP Negative Normal NEGATIVE [facility] Comment on above: Performed By: #### C BC #### [facility] [address] [place] [address] Dr. Ramses Dumas MTD Negative Normal NEGATIVE [facility] Comment on above: Performed By: #### C BC #### [facility] [address] [place] [address] Dr. Ramses Dumas OPI Negative Normal NEGATIVE [facility] Comment on above: Performed By: #### C BC #### [facility] [address] [place] [address] Dr. Ramses Dumas OXY Negative Normal NEGATIVE [facility] Comment on above: Performed By: #### C BC #### [facility] [address] [place] [address] Dr. Ramses Dumas PCP Negative Normal NEGATIVE [facility] Comment on above: Performed By: #### C BC #### [facility] [address] [place] [address] Dr. Ramses Dumas PPX Negative Normal NEGATIVE [facility] Comment on above: Performed By: #### C BC #### [facility] [address] [place] [address] Dr. Ramses Dumas TCA Negative Normal NEGATIVE [facility] Comment on above: Performed By: #### C BC #### [facility] [address] [place] [address] Dr. Ramses Dumas THC Negative Normal NEGATIVE [facility] Comment on above: Performed By: #### C BC #### [facility] [address] [place] [address] Dr. Ramses Dumas ER URINE PROFILEon 2 Bilirubin Ql (U) Negative Normal NEGATIVE [facility] Comment on above: Performed By: #### C BC #### [facility] [address] [place] [address] Dr. Ramses Dumas Clarity (U) CLEAR Normal CLEAR [facility] Comment on above: Performed By: #### C BC #### [facility] [address] [place] [address] Dr. Ramses Dumas Color (U) LT. YELLOW Normal YELLOW [facility] Comment on above: Performed By: #### C BC #### [facility] [address] [place] [address] Dr. Ramses Dumas ERUWalter A micrscopic examination will be performed if indicated. Normal [facility] Comment on above: Performed By: #### C BC #### [facility] [address] [place] [address] Dr. Ramses Dumas Glucose Ql (U) Negative Normal NEGATIVE The [facility] Comment on above: Performed By: #### C BC #### [facility] [address] [place] [address] Dr. Ramses Dumas Hemoglobin Ql (U) LARGE Abnormal NEGATIVE The [facility] Comment on above: Performed By: #### C BC #### [facility] [address] [place] [address] Dr. Ramses Dumas Ketones Ql (U) Negative Normal NEGATIVE The [facility] Comment on above: Performed By: #### C BC #### [facility] [address] [place] [address] Dr. Ramses Dumas LEUKOCYTES LARGE Abnormal NEGATIVE [facility] Comment on above: Performed By: #### C BC #### [facility] [address] [place] [address] Dr. Ramses Dumas Nitrite Ql (U) Positive Abnormal NEGATIVE The [facility] Comment on above: Performed By: #### C BC #### [facility] [address] [place] [address] Dr. Ramses Dumas pH (U) 6.0 [pH] Normal 5-9 [facility] Comment on above: Performed By: #### C BC #### [facility] [address] [place] [address] Dr. Ramses Dumas Protein (U) [Mass/Vol] 30 mg/dL Abnormal NEGAT CHRIS/ TRACE [facility] Comment on above: Performed By: #### C BC #### [facility] [address] [place] [address] Dr. Ramses Dumas SPEC GRAVITY >=1.030 Abnormal 1.005-<=1.02 5 [facility] Comment on above: Performed By: #### C BC #### [facility] [address] [place] [address] Dr. Ramses Dumas UR MICRO IND INDICATED Normal [facility] Comment on above: Performed By: #### C BC #### [facility] [address] [place] [address] Dr. Ramses Dumas Urobilinogen Qn (U) 0.2 {Lucero'U}/dL Normal 0.2 - 1. 0 [facility] Comment on above: Performed By: #### C BC #### [facility] [address] [place] [address] Dr. Ramses Dumas ETHANOL (BLD ALC)on 08-13-20 ALC NOTE NOTE: 80 mg/dl is th e legal limit for a blood alcohol level Normal [facility] Comment on above: Performed By: #### B LDCX2 #### [facility] [address] [place] [address] Dr. Ramses Dumas Ethanol [Mass/Vol] mg/dL Normal [facility] Comment on above: Performed By: #### B LDCX2 #### [facility] [address] [place] [address] Dr. Ramses Dumas URon 08-13-2022 , QUAL Negative Normal NEGATIVE [facility] Comment on above: Performed By: #### C BC #### [facility] [address] [place] [address] Dr. Ramses Dumas PROF 14(COMP METB)on 022 Albumin [Mass/Vol] 3.8 g/dL Normal 3.4-5.0 [facility] Comment on above: Performed By: #### U RCX #### [facility] [address] [place] [address] Dr. Ramses Dumas Albumin/Globulin [Mass ratio] 0.9 {ratio} Normal [facility] Comment on above: Performed By: #### U RCX #### [facility] [address] [place] [address] Dr. Ramses Dumas ALP [Catalytic activity/Vol] 82 U/L Normal 46-116 [facility] Comment on above: Performed By: #### U RCX #### [facility] [address] [place] [address] Dr. Ramses Dumas ALT [Catalytic activity/Vol] 41 U/L Normal 14-59 [facility] Comment on above: Performed By: #### U RCX #### [facility] [address] [place] [address] Dr. Ramses Dumas Anion gap [Moles/Vol] 9.3 mmol/L Normal [facility] Comment on above: Performed By: #### U RCX #### [facility] [address] [place] [address] Dr. Ramses Dumas AST [Catalytic activity/Vol] 21 U/L Normal 15-37 [facility] Comment on above: Performed By: #### U RCX #### [facility] [address] [place] [address] Dr. Ramses Dumas Bilirubin [Mass/Vol] 0.3 mg/dL Normal 0.2-1.0 [facility] Comment on above: Performed By: #### U RCX #### [facility] [address] [place] [address] Dr. Ramses Dumas Calcium [Mass/Vol] 8.9 mg/dL Normal 8.5-10.1 [facility] Comment on above: Performed By: #### U RCX #### [facility] [address] [address] [address] Ramses Dumas Chloride [Moles/Vol] 105 mmol/L Normal 98-107 [facility] Comment on above: Performed By: #### U RCX #### [facility] [address] [address] [address] Ramses Dumas CO2 [Moles/Vol] 28.5 mmol/L Normal 21.0-32.0 [facility] Comment on above: Performed By: #### U RCX #### [facility] [address] [address] [address] Ramses Dumas Creatinine [Mass/Vol] 0.81 mg/dL Normal 0.55-1.02 [facility] Comment on above: Performed By: #### U RCX #### [facility] [address] [place] [address] Dr. Ramses Dumas EGFR-AF KOSOVAN >60 Normal >=60 [facility] Comment on above: Performed By: #### U RCX #### [facility] [address] [address] [address] Ramses Dumas EGFR-NON AF KOSOVAN >60 Normal >=60 [facility] Comment on above: Performed By: #### U RCX #### [facility] [address] [address] [address] Ramses Dumas Globulin (S) [Mass/Vol] 4.1 g/dL Normal [facility] Comment on above: Performed By: #### U RCX #### [facility] [address] [address] [address] Ramses Dumas Glucose [Mass/Vol] 100 mg/dL Normal 74-106 [facility] Comment on above: Performed By: #### U RCX #### [facility] [address] [address] [address] Ramses Dumas Potassium [Moles/Vol] 3.8 mmol/L Normal 3.5-5.1 [facility] Comment on above: Performed By: #### U RCX #### [facility] [address] [address] [address] Ramses Dumas Protein [Mass/Vol] 7.9 g/dL Normal 6.4-8.2 [facility] Comment on above: Performed By: #### U RCX #### [facility] [address] [place] [address] Dr. Ramses Dumas Sodium [Moles/Vol] 139 mmol/L Normal 136-145 [facility] Comment on above: Performed By: #### U RCX #### [facility] [address] [place] [address] Dr. Ramses Dumas Urea nitrogen [Mass/Vol] 10.0 mg/dL Normal 7.0-18.0 [facility] Comment on above: Performed By: #### U RCX #### [facility] [address] [place] [address] Dr. Ramses Dumas Urea nitrogen/Creatinine [Mass ratio] 12.3 mg/mg Normal [facility] Comment on above: Performed By: #### U RCX #### [facility] [address] [place] [address] Dr. Ramses Dumas SALICYLATEon 08-13-2022 SALICYLATE <2.8 Normal <=19.9 [facility] Comment on above: Performed By: #### U RCX #### [facility] [address] [place] [address] Dr. Ramses Dumas URINE MICROSCOPIC ONLYon BACTERIA LARGE Abnormal NONE SEEN [facility] Comment on above: Performed By: #### C BC #### [facility] [address] [place] [address] Dr. Ramses Dumas Bacteria identified Cx Nom (U) INDICATED Normal [facility] Comment on above: Performed By: #### C BC #### [facility] [address] [place] [address] Dr. Ramses Dumas CA OX CRYSTALS RARE Normal The [facility] Comment on above: Performed By: #### C BC #### [facility] [address] [place] [address] Dr. Ramses Dumas CAST NONE SEEN Normal NONE SEEN [facility] Comment on above: Performed By: #### C BC #### [facility] [address] [place] [address] Dr. Ramses Dumas Crystals LM Nom (Urine sed) SEEN Abnormal NONE SEEN [facility] Comment on above: Performed By: #### C BC #### [facility] [address] [address] [address] Ramses Dumas Epithelial cells LM Ql (Urine sed) MODERATE Abnormal NONE SEEN /RARE [facility] Comment on above: Performed By: #### C BC #### [facility] [address] [place] [address] Dr. Ramses Dumas MUCOUS NONE SEEN Normal NONE SEEN [facility] Comment on above: Performed By: #### C BC #### [facility] [address] [place] [address] Dr. Ramses Dumas RBC 10-20 Abnormal 0-2 [facility] Comment on above: Performed By: #### C BC #### [facility] [address] [place] [address] Dr. Ramses Dumas WBC 20-50 Abnormal NONE SEEN [facility] Comment on above: Performed By: #### C BC #### [facility] [address] [place] [address] Dr. Ramses Dumas Pap IG,rfx Aptima HPV all pt hon 08-09-2022 . . Normal [facility] Comment on above: Performed By: #### C MP #### [facility] [address] [place] [address] Dr. Ramses Dumas DIAGNOSIS: Comment Abnormal [facility] Comment on above: Result Comment: EPIT HELIAL CELL ABNORMALITY. LOW GRADE SQUAMOUS INTRAEPITHELIAL LESION (LSIL). Performed By: #### C MP #### [facility] [address] [place] [address] Dr. Ramses Dumas Electronically signed by: Comment Normal [facility] Comment on above: Result Comment: Arnaud Joseph MD, Pathologist Performed By: #### C MP #### [facility] [address] [place] [address] Dr. Ramses Dumas HPV Aptima Negative Normal Negative [facility] Comment on above: Result Comment: This nucleic acid amplification test detects fourteen high-risk HPV types (16,18,31,33,35,39,45,51,52,56,58,59,66,68) without differentiation. Performed By: #### C MP #### [facility] [address] [place] [address] Dr. Ramses Dumas Methodology: Comment [facility] Comment on above: Result Comment: This liquid based ThinPrep(R) pap test was screened with the use of an image guided system. Performed By: #### C MP #### [facility] [address] [place] [address] Dr. Ramses Dumas Note: Comment Normal [facility] Comment on above: Result Comment: The Pap smear is a screening test designed to aid in the detection of premalignant and malignant conditions of the uterine cervix. It is not a diagnostic procedure and should not be used as the sole means of detecting cervical cancer. Both false-positive and false-negative reports do occur. . Performed By: #### C MP #### [facility] [address] [place] [address] Dr. Ramses Dumas Pathologist Provided ICD10 Comment [facility] Comment on above: Result Comment: [id number] Performed By: #### C MP #### [facility] [address] [place] [address] Dr. Ramses Dumas Performed by: Comment Normal [facility] Comment on above: Result Comment: Gail Ruano, Central Office Inspector (ASCP) Performed By: #### C MP #### [facility] [address] [place] [address] Dr. Ramses Dumas Reflex Criteria: Comment Normal [facility] Comment on above: Result Comment: See below for HPV testing results. . Performed By: #### C MP #### [facility] [address] [place], [place] [id number] Dr. Ramses Dumas Specimen adequacy: Comment Normal [facility] Comment on above: Result Comment: Sati sfactory for evaluation. Endocervical and/or squamous metaplastic cells (endocervical component) are present. Performed By: #### C MP #### [facility] [address] [address] [address] Ramses Dumas Vital Signs Date Time Vital Sign Value Performing Clinician Ronnie perez 04-10-2024 07:30-0400 Body temperature 98 [degF] MD Domingo Das Work Phone: [facility] 04-10-2024 07:30-0400 Diastolic blood pressure 73 mm[Hg] MD Domingo Das Work Phone: [facility] 04-10-2024 07:30-0400 Heart rate 75 /min MD Domingo Das Work Phone: [facility] 04-10-2024 07:30-0400 Respiratory rate 16 /min MD Domingo Das Work Phone: [facility] 04-10-2024 07:30-0400 SaO2% (BldA) [Mass fraction] 100 % MD Domingo Das Work Phone: [facility] 04-10-2024 07:30-0400 Systolic blood pressure 123 mm[Hg] MD Domingo Das Work Phone: [facility] 04-08-2024 22:44-0400 Body height 167.64 cm MD Domingo Das Work Phone: [facility] 04-08-2024 22:44-0400 Body weight 86.58 kg MD Domingo Das Work Phone: [facility] 03-20-2023 10:30-0400 Blood Pressure Location Nona VILLA [facility] 03-20-2023 10:30-0400 Diastolic blood pressure 73 mm[Hg] Nona VILLA [facility] 03-20-2023 10:30-0400 Heart rate 80 /min Nona VILLA [facility] 03-20-2023 10:30-0400 Respiratory rate 16 /min Nona VILLA [facility] 03-20-2023 10:30-0400 Systolic blood pressure 128 mm[Hg] Nona IDALMIS [facility] Encounters Encounter Date Encounter Type Care Provider Facility Start: 04-09-2024 Non-patient / Non-visit MD Vicente Das Work Phone: [facility] Work Phone: Start: 04-08-2024 End: 04-10-2024 Evaluation and management of inpatient MD Domingo Das Work Phone: [address] Work Phone: Start: 04-08-2024 ambulatory Domingo Das Facility: [facility] Start: 12-29-2023 End: 12-29-2023 ambulatory [place] Facility:[facility] Start: 12-17-2023 End: 12-17-2023 ambulatory CELIO VAN Not Available Start: 12-04-2023 End: 12-05-2023 ambulatory Nona VILLA Facility:[facility] Start: 12-04-2023 End: 12-04-2023 Patient encounter procedure Nona VILLA [facility] Start: 04-09-2023 End: 04-10-2023 ambulatory Nona VILLA Facility:CD:[id number] Start: 03-20-2023 End: 03-21-2023 ambulatory Nona VILLA Facility:[facility] Start: 03-20-2023 End: 03-20-2023 Patient encounter procedure Nona VILLA [facility] Start: 02-16-2023 End: 02-16-[address] DOMINGO DAS . Facility: Start: 02-02-2023 End: 02-02-[address] DOMINGO DAS . Facility: Start: 12-26-2022 End: 12-27-2022 ambulatory Nona VILLA Facility:[facility] Start: 12-26-2022 End: 12-26-2022 Patient encounter procedure Nona VILLA [facility] Start: 12-16-2022 End: 12-17-[address] NONA VILLA . Facility:[facility] Start: 12-15-2022 End: 12-16-[address] NONA VILLA . Facility:[facility] Start: 11-27-[address] DOMINGO DAS . Facili ty:[facility] Start: 11-07-2022 End: 11-07-[address] DOMINGO DAS . Facility: Start: 11-04-2022 Encounter for preprocedural cardiovascular examination DR JEFFERSON GIBBS . [facility] Start: 11-04-2022 Encounter for preprocedural laboratory examination DR JEFFERSON GIBBS . [facility] Start: 11-03-2022 End: 11-04-2022 Encounter for preprocedural cardiovascular examination DR DOMINGO DAS . Facility:[facility] Start: 11-03-2022 End: 11-04-[address] DOMINGO DAS . Facility: Start: 09-20-2022 Encounter for preprocedural laboratory examination DR NONA VILLA . [facility] Health Start: 09-18-2022 End: 09-18-[address] NONA VILLA . Facility:[facility] Start: 09-16-2022 End: 09-17-[address] NONA VILLA . Facility: Start: 09-16-2022 End: 09-17-2022 Encounter for preprocedural laboratory examination DR NONA VILLA . Facility:[facility] Start: 09-05-2022 End: 09-05-2022 ambulatory OAR BOND . Facility:[facility] Start: 09-04-2022 End: 09-04-2022 ambulatory DANIEL SANTIAGO Facility:[facility] Start: 09-04-2022 End: 09-04-2022 ambulatory Daniel Santiago REHAB DEPARTMENT MANAGER.NUDE MODEL Work Phone: Urology Comment on above: NO SHOW (Primary Dx) Start: 09-04-2022 End: 09-04-2022 Telemedicine consultation with patient Daniel Santiago KONSTANTIN.NUDE MODEL Work Phone: [facility] Start: 08-28-2022 End: 08-29-[address] ERWIN MOORE Facility:[facility] Start: 08-22-2022 End: 08-24-[address] DOMINGO DAS . Facility:[facility] Start: 08-13-2022 End: 08-13-2022 ambulatory ORA BOND . Facility:[facility] Start: 07-31-2022 Encounter for cervic al smear to confirm findings of recent normal smear following initial abnormal smear DR JEFFERSON GIBBS . 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 to Engine Mechanic [facility] Start: 04-08-2024 Hospital admission [facility] Start: 04-08-2024 [facility] Start: 06-19-2022 Influenza vaccination INFLUENZA (#1) [facility] Start: 10-19-2021 DEPRESSION ASSESSMENT DEPRESSION ASSESSMENT [facility] Start: 2021 HPV TESTING HPV TESTING [facility] Start: 2012 PAP TESTING PAP TESTING [facility] Start: 2010 Urine microalbumin profile DTAP,TDAP,TD (1 - Tdap) [facility] Start: 2009 HEPATITIS C SCREENING HEPATITIS C SCREENING [facility] Start: 2009 HIV SCREENING HIV SCREENING [facility] Start: 03-14-1992 COVID-19 VACCINE (#1) COVID-19 VACCINE (#1) [facility] Start: 1991 HEPATITIS B (1 of 3 - 3-dose series) HEPATITIS B (1 of 3 - 3-dose series) [facility] Patient Education Bipolar Disord er (DC) [facility] [place] Instructions Know your Meds [facility] Work Phone: Patient referral [facility] Work Phone: Immunizations Immunization Date Immunization Notes Care Provider Beata moore 08-01-2019 influenza virus vaccine, unspecified formulation Nona VILLA [facility] 08-09-2018 tetanus toxoid, redu franco diphtheria toxoid, and acellular pertussis vaccine, adsorbed Nona VILLA [facility] 08-08-2018 influenza virus vaccine, unspecified formulation Nona VILLA [facility] 06-19-2004 hepatitis B vaccine, pediatric or pediatric/adolescent dosage Nona VILLA [facility] 03-27-2004 hepatitis B vaccine, pediatric or pediatric/adolescent dosage Nona VILLA [facility] 12-18-2003 hepatitis B vaccine, pediatric or pediatric/adolescent dosage Nona VILLA [facility] 12-18-2003 measles, mumps and rubella virus vaccine Nona VILLA [facility] 04-10-1993 DTaP, unspecified formulation Nona Ezakus [facility] 04-10-1993 poliovirus vaccine, unspecified formulation Nona Ezakus [facility] 12-28-1992 Hib, unspecified formulation Nona Ezakus [facility] 12-28-1992 measles, mumps and rubella virus vaccine Nona VILLA [facility] 03-26-1992 Hib, unspecified formulation Nona Ezakus [facility] 01-18-1992 Hib, unspecified formulation Nona VILLA [facility] 1991 Hib, unspecified formulation Nona VILLA [facility] Payers Date Payer Category Payer Self-pay 2021 Medicaid [place] [employer] TERM 09/17 [employer] [employer] [id number] 2021-Present [phone] [address] [place] [address] Medicaid [id number] 1991 Unknown [id number] 2.16.840.1.151182.3.579.2.593 1991 Unknown [id number] 2.16.840.1.190683.3.579.2.593 1991 Unknown [id number] 2.16.840.1.776870.3.579.2.593 1991 Unknown [id number] 2.16.840.1.850312.3.579.2.593 1991 Unknown [id number] 2.16.840.1.903964.3.579.2.593 1991 Unknown [id number] 2.16.840.1.823994.3.579.2.593 1991 Unknown [id number] 2.16.840.1.166463.3.579.2.593 1991 Unknown [id number] 2.16.840.1.790915.3.579.2.593 1991 Unknown [id number] 2.16.840.1.353480.3.579.2.593 1991 Unknown [id number] 2.16.840.1.359547.3.579.2.593 1991 Unknown [id number] 2.16.840.1.417240.3.579.2.593 1991 Unknown [id number] 2.16.840.1.665093.3.579.2.593 1991 Unknown [id number] 2.16.840.1.122861.3.579.2.593 1991 Unknown [id number] 2.16.840.1.719621.3.579.2.593 1991 Unknown [id number] 2.16.840.1.523063.3.579.2.593 1991 Unknown [id number] 2.16.840.1.771333.3.579.2.593 1991 Unknown [id number] 2.16.840.1.488978.3.579.2.727 1991 Unknown [id number] 2.16.840.1.306369.3.579.2.727 1991 Unknown [id number] 2.16.840.1.947166.3.579.2.727 1991 Unknown [id number] 2.16.840.1.888161.3.579.2.727 1991 Unknown [id number] 2.16.840.1.355671.3.579.2.1259 1959 Medicaid [id number] 1959 Self-pay [id number] 1959 Unknown [id number] Unknown [id number] 2.16.840.1.674111.3.579.2.531 Unknown [id number] 2.16.840.1.631205.3.579.2.531 Unknown [id number] 2.16.840.1.579666.3.579.2.531 Social History Date Type Detail Facility Tobacco smoking status MSIS Tobacco smoking consumption unknown [facility] Start: 1991 Sex Assigned At Not on file C [facility] Start: 08-20-2021 End: 04-09-2024 Tobacco smoking status Never smoked tobacco (finding) [facility] Tobacco smoking status Never [facility] Sex Assigned At Female [facility] Start: 1991 Sex Assigned At Female F [facility] Goals Date Patient Goal Desired Activity /State Functional Status Date Assessment Result Facility 04-10-2024 Functional status Patient at [facility] Work Phone: 03-20-2023 Functional Status N/A [facility] Mental Status Date Assessment Result Facility 04-10-2024 Cognitive function Cognitive Sta tus Patient at [facility] Work Phone: Clinical Notes 07-03-2022 to 04-10-2024 Note Date & Type Note Facility 04-10-2024 Discharge summary Note Date/Time April 10, 2024 7:10am [facility] [address] [place] [address] Discharge Summary Signed Patient: Diana Barriga MR#: [id number] : 1990 Acct:[id number] Age/Sex: 33 / F Adm Date: 4 Loc: 1S Room: 6N3522-[address]: Arnulfo Aviles MD Copies to: [...] Dr. Fenton but wants to switch to Monitise. Along with this patient is in marriage counseling with her current and that today's session was not good. Patient stated she needs to be home to take care of her kids, the custody [place], and her marriage. Patient upset because she missed her son's play and has plans to take kids to [place] tomorrow. Patient denies any suicidal ideation denies hallucinations denies racing thoughts. Patient reports that there is no changes in her appetite or sleep. Patient reports that she feels fine. She has tried a lot of medications in the past and believes none of them have worked. He is going to [facility] for psych therapy. He wants to try [...] has an appointment coming up with [facility]. She deniedrecent suicide attempts or [...] Restriction Diet: Regular Instructions: Bipolar Disorder (DC), [facility] DC Instructions, Know [...] signed by Arnulfo Aviles MD> 04/10/24 0929 [facility] Work Phone: 1(218) 507-630306-22-2024 History and physical note Author Arnulfo ornelas [facility] April 09, 2024 9:09am Note Date/Time April 09, 2024 8:43 am [facility] [address] [place] [address] Psychiatry H&P Signed Patient: Diana Barriga MR#: [id number] : 1990 Acct:[id number] Age/Sex: 33 / F Adm Date: 4 Loc: Room: [address] [place] [address] Type: ADM IN Attending Dr: Arnulfo Aviles [...] Dr. Fenton but wants to switch to [facility]. Along with this patient is in marriage counseling with her current and that today's session was not good. Patient stated she needs to be home to take care of her kids, the custody [place], and her marriage. Patient upset because she missed her son's play and has plans to take kids to [place] tomorrow. Patient denies any suicidal ideation denies hallucinations denies racing thoughts. Patient reports that there is no changes in her appetite or sleep. Patient reports that she feels fine. She has tried a lot of medications in the past and believes none of them have worked. He is going to [facility] for psych therapy. He wants to try therapy before any medications. 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 Review of symptoms: Constitutional: Denies chills [...] homicidally, denies suicidality Insight: Intact Judgment: Intact [facility] Medical History (Updated 08/14/22 @ 08:17 [...] signed by Arnulfo Aviles MD> 04/09/24 0909 [facility] Work Phone: 1(810) 988-148906-02-2023 Hospital Discharge instructions Follow Up Care 03/20/2023 11:51:58 With:IDALMIS BORDEN, Nona Turner, URL Address: [address] [place] [address]- When: Unknown [facility] 06-02-2023 Hospital Discharge instructions Patient Education [...] include: ?8 oz (237 mL) of milk, ubbmfbx-stpqpkjslymk-fkeuq milk, and calcium- fortifiedfruit juice. Calcium-fortified means [...] ?Spinach (cooked), rhubarb, beets, sweet potatoes, and Chilean chard. ?Peanuts. ?Potato chips, macedonian fries, and baked potatoes with skin on. ?Nuts and nut products. ?Chocolate. If you regularly take a diuretic medicine, make sure to eat at least 1 or 2 servings of fruits or vegetables that are high in potassium each day. These include: ?Avocado. ?Banana. ?[place], prune, carrot, or tomato juice. ?Baked potato. [...] magnesium, fish oil, or vitamin B6. Take huds-gtr-kvemlua and prescription medicines only as told by [...] Casseroles. Pizza. Lasagna. Frozen meals. Potato chips. Frisian fries. The items listed above may not [...] provider. Document Revised: 06/16/2022 Document Reviewed: 06/16/2022 [employer] Patient Education 2022 [employer] Follow Up Care 12/26/2022 08:46:46 With:IDALMIS BORDEN, Nona Turner, URL Address: [facility] [address] [place] [address]- When: Unknown [facility]23 NoteOPERATIVE NOTE OPERATION DATE: 11/07/2022 PROCEDURE: Mery endometrial ablation with LEEP. PREOPERATIVE DIAGNOSIS: Cervical dysplasia, menorrhagia. POSTOPERATIVE DIAGNOSIS: Cervical dysplasia, menorrhagia. ANESTHESIA: General. SURGEON: Jefferson Gibbs D.O. TANK TRUCK OPERATOR: None. BLOOD LOSS: 50 mL. URINE OUTPUT: [...] taken to Recovery Room in stable condition.[id number] Discharge instructions Follow Up Care 09/25/2022 13:54:04 With:IDALMIS BORDEN, Nona Turner, URL Address: [address] [place], [place] [id number]- When: Unknown [facility] 12-01-2022 NoteOPERATIVE NOTE OPERATION DATE: 09/18/2022 [...] usual fashion. I started by passing a 22-Frisian Olympus cystoscope per urethra and into the [...] and wheeled to PACU in stable condition.[id number] NoteHNO ID: [id number] Author: Daniel Santiago APRN.WAYNE Service: ? Author Type: Nurse Practitioner Type: Progress Notes Filed: 09/04/2022 7:46 AM Note Text: The patient did not show up for this appointment. The patient did not show up for this appointment.[id number] History of Present illness Narrative* Daniel Santiago APRN.WAYNE - 09/04/2022 7:40 AM EST The patient did not show up for this appointment. The patient did not show up for this appointment. [facility] NotePROCEDURE: XR ANKLE LT MIN 3 V COMPARISON: None. HISTORY: Sprain of calcaneofibular ligament FINDINGS: BONES:No fracture, acute abnormality, or significant arthropathy. SOFT TISSUES:Extensive lateral soft tissue swelling EFFUSION:None visible. OTHER: Negative. IMPRESSION: Lateral soft tissue swelling. No acute fracture Electronically authenticated by: GLEN GRAFF Date: 2022-07-03 07:09[facility] Future Appointments Appointment Date:03/20/2023 10:15:00 AM Scheduled Provider:Nona VILLA MD Location:[facility] Appointment Type:URO Office Visit [facility] evaluation + Plan note Future Appointments Appointment Date:12/04/2023 09:45:00 AM Scheduled Provider:Nona VILLA MD Location:[facility] Appointment Type:URO Office Visit Diagnostic Tests Pending * Electrolyte Panel 03/20/23 [facility] evalslnajd note* Diagnosis NO SHOW- Primary documented in this encounter [facility] note* Diagnosis Onset Date Resolution Status Bipolar disorder acute [facility] Work Phone: Hospital course Narrative No data available for this section [facility] progress note No data available for this section [facility] Summary Purpose Family History No Family [...] or prosecute any alcohol or drug abuse patient.[facility] Reason for Visit (unrecogniz ed section and content) Reason Onset Date Comments No Show 09/04/2022 No show Care Teams (unrecognized sec tion and content) Health Clinician Relationship Specialty Start Date End Date Domingo Das MD [address] [place] [address] Referring Family Medicine 09/01/22 Team Status: Active [...] section and content) DATE CREATED AUTHOR 09/06/2022 [facility] DATE CREATED AUTHOR AUTHOR'S ORGANIZ ATION 02/19/2023 [facility] DATE CREATED AUTHOR AUTHOR'S ORGANIZ ATION 12/06/2023 [facility] DATE CREATED AUTHOR AUTHOR'S ORGANIZ ATION 12/19/2023 [facility] Special[facility] DATE CREATED AUTHOR AUTHOR'S ORGANIZ ATION 07/22/2024 [facility] ysician Group FOR RECORDS PERTAINING TO PATIENTS [...] BE BASED ON THE PRIMARY CLINICAL RECORDS. [facility]. provides no warranty or guarantee of the accuracy or completeness of information in this document.
[2024-10-02 06:39] VITALS: BP 127/85; PULSE 93; TEMP 36.5; O2SAT 98; BMI 28.2
[2024-10-02 06:53] LABS: Bilirubin Urine NEGATIVE (NEGATIVE); Blood Urine NEGATIVE (NEGATIVE); Clarity Urine CLOUDY (CLEAR); Color Urine LT. YELLOW (YELLOW); Glucose Urine UA NEGATIVE (NEGATIVE); Ketones Urine NEGATIVE (NEGATIVE); Leukocyte Esterase Urine MODERATE (NEGATIVE); Nitrite Urine NEGATIVE (NEGATIVE); Protein Urine NEGATIVE (NEG/TRACE); pH Urine 7.5 (5.0-9.0)
[2024-10-02 06:59] LABS: Urine Microscopic Indicated YES
[2024-10-02 07:03] LABS: Amorphous Sediment Urine FEW; Bacteria Urine SMALL #/HPF (NONE SEEN); Cast Seen? NONE SEEN #/LPF (NONE SEEN); Crystals Seen? None Seen #/HPF (None Seen); Mucus Urine TRACE (NONE SEEN); RBC Urine 0-2 #/HPF (0-2); Squamous Epithelial Cell Urine FEW #/LPF (NONE/RARE); Urine Culture Indicated YES
--- NOTE | 2024-10-02 07:17 | ED.GENADUL1 ---
HPI HPI - General Adult General Chief complaint: Urogenital-Female Stated complaint: UTI Time Seen by Provider: 10/02/24 07:05 Source: patient Mode of arrival: walk-in Limitations: no limitations History of Present Illness HPI narrative: 34-year-old female to the emergency department with chief complaint of dysuria, urgency, frequency. Patient reports she also has some chills. She reports she is currently on Keflex for urinary tract infection. She reports the symptoms are not improving. She reports that she has frequent urinary tract infections. She denies any nausea or vomiting. Related Data Previous Rx's ?Medication ?Instructions ?Recorded cephalexin 500 mg capsule 500 mg PO Q8H 5 days #15 caps 09/28/24 ketorolac 10 mg tablet 10 mg PO Q8H PRN pain 2 days #6 09/28/24 tabs ciprofloxacin HCl 250 mg tablet 250 mg PO BID 3 days #6 tabs 10/02/24 phenazopyridine 200 mg tablet 200 mg PO Q8H PRN pain 6 doses #6 10/02/24 (Pyridium) tabs Allergies Allergy/AdvReac Type Severity Reaction Status Date / Time No Known Drug Allergies Allergy Verified 10/02/24 06:43 Opioid HPI Opioid Management Most Recent Opioid Data: Last Pain Scale 8 09/28/24 15:53 09/28/24 Last ED Pain Assessment 09/28/24 15:53 Ur Phencyclidine Scrn Negative (NEGATIVE) 04/08/24 15:00 04/08/24 Review of Systems ROS Status of ROS 10 or more systems reviewed and unremarkable except as noted in history and below PFSH PFSH Medical History Anxiety and depression ?F41.9 - Anxiety disorder, unspecified (ICD-10) ?F32.A - Depression, unspecified (ICD-10) Kidney stones ?N20.0 - Calculus of kidney (ICD-10) Bipolar disorder ?F31.9 - Bipolar disorder, unspecified (ICD-10) Kidney stones ?N20.0 - Calculus of kidney (ICD-10) Surgical History History of ultrasound guided needle biopsy ?Z98.890 - Other specified postprocedural states (ICD-10) H/O local excision of skin lesion ?Z98.890 - Other specified postprocedural states (ICD-10) S/P extracorporeal shock wave therapy (03/2023) ?Z98.890 - Other specified postprocedural states (ICD-10) History of wisdom tooth extraction ?K08.409 - Partial loss of teeth, unspecified cause, unspecified class (ICD-10) H/O LEEP ?Z98.890 - Other specified postprocedural states (ICD-10) History of endometrial ablation ?Z98.890 - Other specified postprocedural states (ICD-10) S/P cystoscopy ?Z98.890 - Other specified postprocedural states (ICD-10) S/P ureteral stent placement ?Z96.0 - Presence of urogenital implants (ICD-10) H/O ureteroscopy ?Z98.890 - Other specified postprocedural states (ICD-10) History of cholecystectomy ?Z90.49 - Acquired absence of other specified parts of digestive tract (ICD-10) Family History Other Family history of hypertension Social History Within the past year, how often did you have a drink containing alcohol: monthly or less Smoking status: Never smoker Non-prescribed substance use: denies use 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 GENERAL: Anxious and tearful adult female in no distress NEURO: Alert and oriented. Moves all extremities. Face is symmetric and expressive. EYES: PERRL. No scleral icterus or conjunctival injection. No discharge. HENT: Normocephalic, atraumatic. Hearing is grossly intact. Nares grossly patent and without discharge. Mucous membranes moist. NECK: No JVD. Patient moves neck without restriction. CARDIO: Rhythm regular. Normal rate. No murmur, rub, or gallop. Pulses equal bilaterally in the upper and lower extremity. No lower extremity edema. PULM: Lungs clear to auscultation in all kelley. No wheezes, rales, or rhonchi. No conversational dyspnea. No splinting, stridor, or accessory muscle use. GI/: Abdomen is soft and non-tender. Normoactive bowel sounds. EXTREMITIES: Symmetric muscle bulk. No joint swelling. No clubbing, cyanosis, or deformity. SKIN: Warm and dry. Normal turgor. No rash or lesions appreciated. PSYCH: Anxious, tearful Constitutional Vital Signs, click to edit/add: Last Vital Signs Temp 97.7 F 10/02/24 06:39 Pulse 93 H 10/02/24 06:39 Resp 18 10/02/24 06:39 BP 127/85 10/02/24 06:39 Pulse Ox 98 10/02/24 06:39 O2 Del Method Room Air 10/02/24 06:39 Course Vital Signs Vital signs: Vital Signs Temperature 97.7 F 10/02/24 06:39 Pulse Rate 93 H 10/02/24 06:39 Respiratory Rate 18 10/02/24 06:39 Blood Pressure 127/85 10/02/24 06:39 Pulse Oximetry 98 10/02/24 06:39 Oxygen Delivery Method Room Air 10/02/24 06:39 Temperature 97.7 F 10/02/24 06:39 Pulse Rate 93 H 10/02/24 06:39 Respiratory Rate 18 10/02/24 06:39 Blood Pressure 127/85 10/02/24 06:39 Pulse Oximetry 98 10/02/24 06:39 Oxygen Delivery Method Room Air 10/02/24 06:39 Medical Decision Making [facility] Narrative Medical decision making narrative: 34-year-old female to the emergency department describing worsening UTI symptoms. Vital stable, the patient is afebrile. Patient is tearful and anxious on exam. Her abdominal examination is benign. She is status post hysterectomy. Urinalysis was provided and she does have some trace bacteria and moderate leukocyte esterase. The urinalysis is improved from previous. 1211 urine sample is currently prelim of greater than 100,000 colony-forming units of gram-negative rods. I discussed improving urinalysis despite worsening symptoms. She would like her antibiotic change. Will place her on a 3-day course of Cipro. Pyridium for symptom control. She has upcoming follow-up with urology to discuss her frequent urinary tract infections. She also follows with her PCP for this. Return precautions were discussed. All questions were answered. The patient was discharged home. Lab Data Lab results reviewed: Yes I reviewed the patient's lab results Labs: Lab Results 10/02/24 Range/Units 06:35 Urine Color Lt. yellow (YELLOW) Urine Clarity Cloudy A (CLEAR) Urine pH 7.5 (5.0-9.0) Ur Specific [place] 1.020 (1.005-1.025) Urine Protein Negative (NEG/TRACE) mg/dL Urine Glucose (UA) Negative (NEGATIVE) mg/dL Urine Ketones Negative (NEGATIVE) mg/dL Urine Occult Blood Negative (NEGATIVE) Urine Nitrite Negative (NEGATIVE) Urine Bilirubin Negative (NEGATIVE) Urine Urobilinogen 1.0 (0.2-1.0) EU/dL Ur Leukocyte Esterase Moderate A (NEGATIVE) Urine RBC 0-2 (0-2) #/HPF Urine WBC 5-10 A (NONE SEEN) #/HPF Ur Squamous Epith Cells Few A (NONE/RARE) #/LPF Urine Crystals None seen (None Seen) #/HPF Amorphous Sediment Few Urine Bacteria Small A (NONE SEEN) #/HPF Urine Casts None seen (NONE SEEN) #/LPF Urine Mucus Trace A (NONE SEEN) Ur Culture Indicated? Yes Discharge Plan Discharge Chief Complaint: Urogenital-Female Clinical Impression: UTI (urinary tract infection) Patient Disposition: Home, Self-Care Time of Disposition Decision: 07:14 Condition: Good Mode of Transportation: Private Vehicle Prescriptions / Home Meds: New ciprofloxacin HCl 250 mg tablet 250 mg PO BID 3 Days Qty: 6 0RF phenazopyridine [Pyridium] 200 mg tablet 200 mg PO Q8H PRN (Reason: pain) Qty: 6 0RF No Action cephalexin 500 mg capsule 500 mg PO Q8H 5 Days Qty: 15 0RF ketorolac 10 mg tablet 10 mg PO Q8H PRN (Reason: pain) 2 Days Qty: 6 0RF Print Language: Bolivian Instructions: Urinary Tract Infection in Women (DC) Additional Instructions: Call the office of your primary care doctor to arrange for follow-up within the above-stated timeframe. Your ED visit was focused on your acute issue and does not replace primary care. You should review your labs, imaging, and diagnoses from this ED visit with your primary care physician. There may be non-emergent/ incidental findings that need further evaluation. You should review your vital signs including blood pressure with your PCP. If you were prescribed medications you should discuss possible side-effects and drug interactions with your pharmacist. Call 911 or go to the nearest Emergency Department if you develop any new or worsening symptoms. Seek immediate medical attention if you develop: worsening abdominal pain, new or worsening nausea, new or worsening vomiting, new or worsening diarrhea, chest pain, shortness of breath, pain with urination, problems urinating, fever, chills, weakness, or any new or worsening symptoms. Referrals: Ignacio Das MD [Primary Care Provider] - 1 week
== END 2024-10-02 07:20 | disposition home or self-care (01) ==
PROVIDERS: Emergency Medicine; Emergency Provider Student in an Organized Health Care Education/Training Program; PCP Family Medicine
DX: N39.0 Urinary tract infection, site not specified (principal); Z87.440 Personal history of urinary (tract) infections; Z90.49 Acquired absence of other specified parts of digestive tract; Z90.710 Acquired absence of both cervix and uterus
CPT/HCPCS: 81001; 87086; 99283

== ENCOUNTER 2024-12-02 17:06 | Emergency (ER) | payer OTHER, SELFPAY ==
[2024-12-02 17:11] VITALS: BP 124/77; PULSE 67; TEMP 36.5; O2SAT 100; BMI 29.1
--- NOTE | 2024-12-02 17:22 | ED.GENADUL1 ---
HPI HPI - General Adult General Chief complaint: Urogenital-Female Stated complaint: Flank PAIN Time Seen by Provider: 12/02/24 17:18 Mode of arrival: walk-in History of Present Illness HPI narrative: Patient is a 34-year-old female who is presenting to the ER with chief complaint left flank pain, urinary frequency urgency burning, and concern for worsening urinary tract infection. Patient gave a urine sample in the office on Thursday. Patient was started on Keflex from Dr. Das. Patient talk to Dr. Das on the phone yesterday. Patient feels like her symptoms are getting worse, patient came into the ER today. Patient did not call Dr. Das today. Patient has nausea, no vomiting. Patient is having pain. Patient does not have her gallbladder, does not have her uterus. She does have her appendix and ovaries. Patient does not have any constipation. Patient has passed 3-4 kidney stones in the past. Patient has no rash. No heavy lifting, twisting, turning, no other acute complaints. All systems are negative except as noted/marked. All systems reviewed and otherwise negative. Nurses note and vital signs reviewed and patient is not hypoxic. General: The patient appears sick, not toxic. Patient is resting uncomfortably on cart. Patient is not toxic, lethargic, or listless Skin: Warm, dry, no pallor noted. There is no rash noted. No petechiae, purpura. Head: Normocephalic, atraumatic Eye: Normal conjunctiva, no drainage, EOMI. PERRL Ears, Nose, Mouth, and Throat: oral mucosa is moist. Nares patent. Mouth without vesicles. Cardiovascular: Regular Rate and Rhythm, no murmur, gallop, rub Respiratory: Patient is in no distress, no accessory muscle use, lungs are clear to auscultation, no wheezing, rales or rhonchi Back: non-tender, no CVA tenderness bilaterally to percussion. No CT LS midline pain. GI: Obese, mild suprapubic tenderness to palpation, moderate left flank tenderness palpation, no right flank tenderness palpation, no tenderness to palpation, no masses appreciated. No rebound, guarding, or rigidity noted. No distention Musculoskeletal: Patient has full range of motion of all of the extremities, no motor, sensory, or focal neurological deficits Neurological: A&O x4, normal speech Psychiatric: Cooperative, flat affect Related Data Home Medications ?Medication ?Instructions ?Recorded ?Confirmed cefdinir 300 mg capsule 300 mg PO BID 12/02/24 12/02/24 Previous Rx's ?Medication ?Instructions ?Recorded phenazopyridine 200 mg tablet 200 mg PO Q8H PRN pain 6 doses #6 10/02/24 (Pyridium) tabs ondansetron 4 mg disintegrating 4 mg PO Q4H PRN nausea and 12/02/24 tablet vomiting 3 days #6 tabs Allergies Allergy/AdvReac Type Severity Reaction Status Date / Time No Known Drug Allergies Allergy Verified 10/02/24 06:43 Opioid HPI Opioid Management Most Recent Opioid Data: Last Pain Scale 8 09/28/24 15:53 09/28/24 Ur Phencyclidine Scrn Negative (NEGATIVE) 04/08/24 15:00 04/08/24 PFSH PFSH Medical History (Updated 12/02/24 @ 18:44 by Kyle Leonard MD) Anxiety and depression ?F41.9 - Anxiety disorder, unspecified (ICD-10) ?F32.A - Depression, unspecified (ICD-10) Kidney stones ?N20.0 - Calculus of kidney (ICD-10) Bipolar disorder ?F31.9 - Bipolar disorder, unspecified (ICD-10) Kidney stones ?N20.0 - Calculus of kidney (ICD-10) Surgical History (Updated 12/02/24 @ 17:36 by Tamiko Taylor) H/O: hysterectomy ?Z90.710 - Acquired absence of both cervix and uterus (ICD-10) History of ultrasound guided needle biopsy ?Z98.890 - Other specified postprocedural states (ICD-10) H/O local excision of skin lesion ?Z98.890 - Other specified postprocedural states (ICD-10) S/P extracorporeal shock wave therapy (03/2023) ?Z98.890 - Other specified postprocedural states (ICD-10) History of wisdom tooth extraction ?K08.409 - Partial loss of teeth, unspecified cause, unspecified class (ICD-10) H/O LEEP ?Z98.890 - Other specified postprocedural states (ICD-10) History of endometrial ablation ?Z98.890 - Other specified postprocedural states (ICD-10) S/P cystoscopy ?Z98.890 - Other specified postprocedural states (ICD-10) S/P ureteral stent placement ?Z96.0 - Presence of urogenital implants (ICD-10) H/O ureteroscopy ?Z98.890 - Other specified postprocedural states (ICD-10) History of cholecystectomy ?Z90.49 - Acquired absence of other specified parts of digestive tract (ICD-10) Family History Other Family history of hypertension Social History Within the past year, how often did you have a drink containing alcohol: monthly or less Smoking status: Never smoker Non-prescribed substance use: denies use 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 Highest level of school completed/degree received: Master's degree Are you now , , , , never or living with a partner: Little interest or pleasure in doing things: not at all Feeling down, depressed, or hopeless: not at all Gender Identity: female Exam Constitutional Vital Signs, click to edit/add: Last Vital Signs Temp 97.7 F 12/02/24 17:11 Pulse 77 12/02/24 18:47 Resp 16 12/02/24 18:47 BP 120/73 12/02/24 18:47 Pulse Ox 98 12/02/24 18:47 Course Vital Signs Vital signs: Vital Signs Temperature 97.7 F 12/02/24 17:11 Pulse Rate 67 12/02/24 17:11 Respiratory Rate 18 12/02/24 17:11 Blood Pressure 124/77 12/02/24 17:11 Pulse Oximetry 100 12/02/24 17:11 Temperature 97.7 F 12/02/24 17:11 Pulse Rate 77 12/02/24 18:47 Respiratory Rate 16 12/02/24 18:47 Blood Pressure 120/73 12/02/24 18:47 Pulse Oximetry 98 12/02/24 18:47 Medical Decision Making MDM Narrative Medical decision making narrative: Patient is currently on Keflex, patient is been taking Keflex for couple days. Patient has had multiple UTIs in the past. Patient says that she seen several urologist in the past. Patient currently seeing a new urologist in [place] as well. They think that patient may have reflux, this has not been confirmed apparently yet in her past of seeing other urologist. [address] have spoken [address] Das. He is aware of the patient being in the ER. He is aware of lab test that were done, and giving patient IV Rocephin. Patient had education at bedside and very strict education that was written down on her discharge papers. Patient does feel better with IV medication given and IV fluids. Patient has no elevated white blood cell count. Patient potassium was 3.2. Patient will increase Gatorade and Powerade at home through the weekend. Lab Data Labs: Lab Results 12/02/24 12/02/24 Range/Units 17:24 17:32 WBC 7.3 (4.0-11.0) 10^3/uL RBC 4.46 (4.20-5.40) 10^6/uL Hgb 12.6 (12.0-16.0) g/dL Hct 38.1 (36.0-48.0) % MCV 85.4 (81.0-99.0) fL MCH 28.3 (26.7-34.0) pg MCHC 33.1 (29.9-35.2) g/dL RDW 12.5 (11.0-15.0) % Plt Count 273 (150-450) 10^3/uL MPV 9.1 L (9.5-13.5) fL Neut % (Auto) 45.8 (43.0-75.0) % Lymph % (Auto) 44.3 (20.5-60.0) % [place] % (Auto) 7.4 (1.7-12.0) % Eos % (Auto) 1.8 (0.9-7.0) % Baso % (Auto) 0.6 (0.2-2.0) % Neut # (Auto) 3.3 (1.4-6.5) 10^3/uL Lymph # (Auto) 3.2 (1.2-3.8) 10^3/uL [place] # (Auto) 0.5 (0.3-0.8) 10^3/uL Eos # (Auto) 0.1 (0.0-0.7) 10^3/uL Baso # (Auto) 0.0 (0.0-0.1) 10^3/uL Abs Immat Gran (auto) 0.01 (0.00-0.03) 10^3/uL Imm/Tot Granulo (auto) 0.1 (0.0-0.5) % Sodium 142 (136-145) mmol/L Potassium 3.2 L (3.5-5.1) mmol/L Chloride 104 (98-107) mmol/L Carbon Dioxide 31.9 (21.0-32.0) mmol/L Anion Gap 9.3 BUN 5.0 L (7.0-18.0) mg/dL Creatinine 0.98 (0.55-1.02) mg/dL Est GFR ( Amer) >60 (>=60 mL/min/1.73m^2) Est GFR (Non-Af Amer) >60 (>=60 mL/min/1.73m^2) BUN/Creatinine Ratio 5.1 Glucose 90 (74-106) mg/dL Lactate 1.1 (0.4-2.0) mmol/L Calcium 9.2 (8.5-10.1) mg/dL Total Bilirubin 0.3 (0.2-1.0) mg/dL AST 20 (15-37) U/L ALT 32 (14-59) U/L Alkaline Phosphatase 74 (46-116) U/L Total Protein 7.0 (6.4-8.2) g/dL Albumin 3.7 (3.4-5.0) g/dL Globulin 3.3 g/dL Albumin/Globulin Ratio 1.1 Lipase 29.0 (16.0-77.0) U/L Urine Color Dk. orange (YELLOW) Urine Clarity Clear (CLEAR) Urine pH 6.5 (5.0-9.0) Ur Specific [place] <=1.005 A (1.005-1.025) Urine Protein Negative (NEG/TRACE) mg/dL Urine Glucose (UA) Negative (NEGATIVE) mg/dL Urine Ketones Negative (NEGATIVE) mg/dL Urine Occult Blood Large A (NEGATIVE) Urine Nitrite Positive A (NEGATIVE) Urine Bilirubin Negative (NEGATIVE) Urine Urobilinogen 1.0 (0.2-1.0) EU/dL Ur Leukocyte Esterase Trace A (NEGATIVE) Urine RBC 0-2 (0-2) #/HPF Urine WBC 2-5 A (NONE SEEN) #/HPF Ur Squamous Epith Cells Few A (NONE/RARE) #/LPF Ur Transition Epith Cell Rare A (NONE SEEN) #/LPF Urine Crystals Seen A (None Seen) #/HPF Calcium Oxalate Crystal Rare Urine Bacteria Small A (NONE SEEN) #/HPF Urine Casts None seen (NONE SEEN) #/LPF Urine Mucus Moderate A (NONE SEEN) Ur Culture Indicated? Yes-[facility] [place] Discharge Plan Discharge Chief Complaint: Urogenital-Female Clinical Impression: UTI (urinary tract infection), Nausea and vomiting, Renal colic on left side Patient Disposition: Home, Self-Care Time of Disposition Decision: 18:33 Condition: Fair Mode of Transportation: Private Vehicle Prescriptions / Home Meds: New ondansetron 4 mg tablet,disintegrating 4 mg PO Q4H PRN (Reason: nausea and vomiting) 3 Days Qty: 6 0RF No Action phenazopyridine [Pyridium] 200 mg tablet 200 mg PO Q8H PRN (Reason: pain) Qty: 6 0RF cefdinir 300 mg capsule 300 mg PO BID Print Language: [place] Instructions: Urinary Tract Infection in Women (ED), Renal Colic (ED), Acute Nausea and Vomiting (ED), Flank Pain (ED) Additional Instructions: Increase fluids at home, water, cranberry juice. Continue taking Keflex as prescribed, start your next dose of Keflex tomorrow afternoon. You received an antibiotic in the ER today, IV Rocephin 1 g that last for 24 hours. Use Zofran if needed for nausea and vomiting. I have made Dr. Das aware of your ER visit, call Thursday if any other concerns. Your x-ray will be reviewed by radiologist in the next several hours, but no acute findings noted. Continue to follow-up with urology in [place]. Referrals: Ignacio Das MD [Primary Care Provider] - 1 week Discharge Date/Time: 12/02/24 19:19
--- OUTSIDE RECORDS SUMMARY | 2024-12-02 17:24 | XMS_ITS | CCD ---
Author Organization [facility] CliniSyin Care Team Providers Care [employer] Power[employer] Mechanic Name Role Phone Domingo Das MD Unavailable DANIEL SANTIAGO Attending Unavailable DOMINGO DAS Referring Unavailable Domingo Das Primary Care Physician [phone] LILLIAN ., DR LANE Primary Care Unavailable BERNIE ., DR TOLBERT Admitting Unavailable BERNIE ., DR TOLBERT Attending Unavailable MOORE, DR ERWIN Turner Consulting Unavailable SILVERIO, DR [...] VILLANona Attending Unavailable VILLANona R Attending Unavailable VILLA, Nona Turner Attending Unavailable CELIO VAN Attending Unavailable MD Domingo Das Primary Care Provider [phone] MD Arnulfo Aviles Admit Provider MD Arnulfo Aviles Attending Provider [phone] Domingo Das Primary Care Unavailable Arnulfo Aviles [...] 13, 2022 12:00am August 16, 2022 11:38am [place] (No Known Home Meds) (1 source) Start: 04-08-2024 [place] (No Kn own Home Meds) Active April [...] BID, # 30 tab(s), Refills(s) 3, Pharmacy: [facility]/pharmacy #[id number], 168, cm, 03/20/23 10:32:00 [...] [Unspecified abdominal pain] Onset: 09-05-2022 02-28-2020 Episodic Adjustment disorders (2 sources) Reaction to severe stress, unspecified; Translations: [Reaction to severe stress. unspecified] Onset: 06-16-2024 Chronic Anxiety disorders (2 sources) Generalized anxiety disorder; Translations: [Generalized anxiety disorder] Onset: 06-16-2024 Chronic Calculus of urinary tract (13 sources) Kidney [...] W/REG CYCL] Onset: 11-04-2022 Chronic Mood disorders (9 sources) Major depressive disorder, single episode, unspecified; Translations: [Major depressive disorder, recurrent, unspecified] Onset: 08-14-2022 03-20-2023 Chronic Nausea and vomiting (4 sources) Nausea with vomiting, unspecified; Translations: [NAUSEA WITH VOMITING UNSPECIFIED] Onset: 02-16-2023 Episodic Other aftercare (1 source) Other intermediate manager (current) drug therapy; Translations: [OTH ROPE MAKER CURRENT DRUG THERAPY] Onset: 02-18-2023 Episodic Other aftercare (1 source) [facility] (current) use of oral hypoglycemic drugs; Translations: [ROPE MAKER USE ORAL HYPOGLYCEMIC DX] Onset: 02-18-2023 Episodic [...] 04-09-2024 Cholesterol [Mass/Vol] 150 mg/dL Normal 140-200 [facility] Comment on above: Chol less than 200 m g/dl low riskChol 201-239 mg/dl borderline riskChol 240 mg/dl and greater high risk Result Comment: Chol less than 200 mg/dl low risk Chol 201-239 mg/dl borderline risk Chol 240 mg/dl and greater high risk Performed By: #### L IPID, TSH3 wRFLX, [id number] #### [address] Cholesterol in LDL Calc [Mas s/Vol]Ordered By: Arnulfo Aviles on 04-09-2024 Cholesterol in LDL [Mass/Vol] 90 mg/dL 0-100 [facility] Comment on above: LDL ATP III CLASSIFI CATIONLDL less than 100 mg/dL OptimalLDL 100-129 mg/dL Near or above optimalLDL 130-159 mg/dL Borderline highLDL 160-189 mg/dL HighLDL greater than 189 mg/dL Very high Cholesterol in VLDL Calc [Ma ss/Vol]Ordered By: Arnulfo Aviles on 04-09-2024 Cholesterol in VLDL [Mass/Vol] 16 mg/dL [facility] ECG 12 lead ECGon 04-09-2024 ECG 12 lead ECG [facility] [address] [place] [address] Electrocardiograph Report Signed Patient: Diana Barriga MR#: [id number] 55 : 1990 Acct:[id number] Age/Sex: 33 / F ADM Date: 04/08/24 Loc: Room: [address] [place] [address] Type: ADM IN Attending Dr: Arnulfo Aviles [...] ECG No previous ECGs available Confirmed by NONA CHAWLA MD, FACC ([id number]) on 04/09/2024 3:21:42 PM Referred By: Electronically Signed By:NONA CHAWLA MD, FACC Transcribed By: MUS Signed By Lg Chawla MD 04/09/24 1521 Normal [facility] Lipid Panelon 04-09-2024 LDL Cholesterol,Calculated 90 mg/dL Normal 0-100 [facility] Comment on above: Result Comment: LDL ATP III CLASSIFICATION LDL less than 100 mg/dL Optimal LDL 100-129 mg/dL Near or above optimal LDL 130-159 mg/dL Borderline high LDL 160-189 mg/dL High LDL greater than 189 mg/dL Very high Performed By: #### L IPID, TSH3 wRFLX, [id number] #### [facility] [address] Triglyceride w/Reflex 82 mg/dL Normal 0-149 [facility] Comment on above: Result Comment: TRIG ATP III CLASSIFICATION TRIG less than 150 mg/dL Normal TRIG 150-199 mg/dL Borderline high TRIG 200-500 mg/dL High TRIG greater than 500 mg/dL Very high Standard traceable to the Center for Disease Conrtrol and Prevention (CDC) test method. Performed By: #### L IPID, TSH3 wRFLX, [id number] #### [facility] [address] [place] [address] VLDL CHOLESTEROL 16 mg/dL Normal [facility] Comment on above: Performed By: #### L IPID, TSH3 wRFLX, [id number] #### [address] Serum or plasma high density lipoprotein (HDL) cholesterol measurementOrdered By: Arnulfo Aviles on 04-09-2024 Cholesterol in HDL [Mass/Vol] 44 mg/dL Normal 23- [facility] Comment on above: HDL CHOL ATP-III CLA SSIFICATION Cardiovascular RiskHDL > or equal to 60 mg/dL LOWHDL < 40 mg/dL HIGH Result Comment: HDL CHOL ATP-III CLASSIFICATION Cardiovascular Risk HDL > or equal to 60 mg/dL LOW HDL < 40 mg/dL HIGH Performed By: #### L IPID, TSH3 wRFLX, [id number] #### [facility] [address] [place] [address] Serum or plasma total choles terol/high density lipoprotein (HDL) cholesterol mass ratOrdered By: Arnulfo Aviles on 04-09-2024 Cholesterol.total/Chol esterol in HDL [Mass ratio] 3.4 {ratio} Normal <5.0 [facility] Comment on above: Performed By: #### L IPID, TSH3 wRFLX, [id number] #### [facility] [address] [place] [address] Thyroid Stim Hormone w/Rflxo n 04-09-2024 Thyroid Stim Hormone w/Rflx 2.01 u[iU]/mL Normal 0.45-5.33 [facility] Comment on above: Performed By: #### L IPID, TSH3 wRFLX, [id number] #### [facility] [address] [place] [address] Thyrotropin [Units/volume] i n Serum or PlasmaOrdered By: Arnulfo Aviles on 04-09-2024 TSH Qn 2.01 m[IU]/L 0.45-5.33 [facility] Triglyceride [Mass/volume] i n Serum or PlasmaOrdered By: Arnulfo Aviles on 04-09-2024 Triglyceride [Mass/Vol] 82 mg/dL 0-149 [facility] Comment on above: TRIG ATP III CLASSIF ICATIONTRIG less than 150 mg/dL NormalTRIG 150-199 mg/dL Borderline highTRIG 200-500 mg/dL High TRIG greater than 500 mg/dL Very highStandard traceable to the Center for Disease Conrtrol and Prevention (CDC) test method. Vitamin D 25 Hydroxy Totalon 04-09-2024 Vitamin D 25 Hydroxy Total 26.2 ng/mL Low 30-100 [facility] Comment on above: Result Comment: THA MIN D STATUS 25(OH)VITAMIN D RANGE (ng/mL) Deficient <20 Insufficient 20 to <30 Sufficient 30 to 100 Reference: Jennifer Tiwari, Mady MARTI et al. Evaluation,treatment, and prevention of vitamin D deficiency; an Endocrine Society clinical practice guideline. JCEM. 2010; 96(7):1911-. PERFORMED BY: [place] [address] PATHOLOGIST KENNEL AIDE AB ALCANTARA M.D. Performed By: #### L IPID, TSH3 wRFLX, [id number] #### [address] Vitamin D+Metabolites [Mass/ volume] in Serum or PlasmaOrdered By: Arnulfo Aviles on 04-09-2024 Vitamin D+Metabolites [Mass/Vol] 26.2 ng/mL 30-100 [facility] Comment on above: VITAMIN D STATUS 25( [place])VITAMIN D RANGE (ng/mL) Deficient <20 Insufficient 20 to <30Sufficient 30 to 100Reference: Jennifer Tiwari, Mady MATRI et al. Evaluation,treatment, and prevention of vitamin D deficiency; an Endocrine Society clinical practice guideline. JCEM. 2010; 96(7):1911-30. Axel 12-29-2023 L Specimen: [id number] Received: 12/29/23 Status: DAQUAN Rerosa Num: [id number] Spec Type: Surgical Subm Dr: Glen Graff MD Tissues: A BREAST CORE NO CALCS (LT BREAST 6:00) Procedures: PAS - LGRN, HE/2, Gross/Micro L4, AE1-AE3, CD68 Age/ Patient Sex Location Account Attending Physician SdDiana Hyman 33/F LABELL [id number] Glen Graff MD SPEC NUM: [id number] RECD: 12/29/23 STATUS: DAQUAN MOON NUM: [id number] KELBY: 12/29/23- SUBM DR: Glen Graff MD ENTERED: 12/29/23 [facility] DR: Miles Celeste Bernie SPEC TYPE: [...] AM 12/29/2023, time out of ---- Specimen: [id number] Received: 12/29/23 Status: DAQUAN Moon Num: [id number] Spec Type: Surgical Subm Dr: Glen Graff MD Tissues: A BREAST CORE NO CALCS (LT BREAST 6:00) Procedures: PAS - LGRN, HE/2, Gross/Micro L4, AE1-AE3, CD68 ---- Patient: Diana Barriga [id number] (Continued) ---- Specimen: [id number] Received: 12/29/23 (Continued) Gross Description (Continued) Signed (signature on file) Swathi Dumas MD 12/30/23 1834 ---- Specimen: [id number] Received: 12/29/23 Status: DAQUAN Moon Num: [id number] Spec Type: Surgical Subm Dr: Glen Graff MD Tissues: A BREAST CORE NO CALCS (LT BREAST 6:00) Procedures: FIONA - ELLIS, HE/2, Gross/Micro L4, AE1-AE3, CD68 ---- Patient: Diana Barriga [id number] (Continued) ---- Specimen: [id number] Received: 12/29/23-1410 (Continued) Gross Description (Continued) formalin: 6 PM 12/29/2023. Cold Ischemia and Fixation Time meets the requirements specified in the latest version of the ASCO/CAP guidelines: Yes. Cold Ischemic Time: 0.03 Formalin Fixation Time: 9.85 CPT Codes 24375 [id number] ---- ---- Specimen: [id number] Received: 12/29/23 Status: DAQUAN Moon Num: [id number] Spec Type: Surgical Subm Dr: Glen Graff MD Tissues: A BREAST CORE NO CALCS (LT BREAST 6:00) Procedures: PAS - LGRN, HE/2, Gross/Micro L4, AE1-AE3, CD68 ---- Patient: Diana Barriga [id number] (Continued) ---- Signed (signature on file) Swathi Dumas MD 12/30/231833 Normal [facility] Patient Letter FTon 2023 Patient Letter [facility] [place] December 04, 2023 [address] [place] [id number] : 1990 Dear Diana, You missed your [...] [facility] [address], [place] [address] [facility] Lab Reportson 06-05-2023 Lab Reports [id number]#1.0 0CD:127 [facility] Reminderson 04-24-2023 Reminders - [...] [facility] Operative Reporton Operative Report [id number]#1.00 CD:127 [facility] RAD - MISCon 04-10-2023 RAD - MISC [id number]#1.0 0CD:127 [facility] Lab Reportson 04-06-2023 Lab Reports [id number]#1.0 0CD:127 [facility] Lab Reports [id number]#1.0 0CD:127 [facility] Reportson 03-23-2023 Lab Reports [id number]#1.0 0CD:127 [facility] Lab Reports [id number]#1.0 0CD:127 Normal [facility] Lab Reports [id number]#1.0 0CD:127 Normal [facility] RAD - CT Reporton 03-23-2023 RAD - CT Report [id number]#1.0 0CD:127 Normal [facility] RAD - CT Report [id number]#1.0 0CD:127 Normal [facility] Ambulatory Visit Summaryon 0 03-20-2023 Ambulatory Visit Summary DIANA ABRRIGA :1990 Visit Date:03/20/2023 Ambulatory Visit Instructions Your [...] Where: [facility] [address] [place] [address]- Medications What When Instructions Unchanged olanzapine-samidorphan (Lybalvi [...] ? 8 oz (237 mL) of milk, yjklduf-fqhlpttzlmep-e airy milk, and calcium-fortifiedfruit juice. Calcium-fortified means [...] for Procedure/Surger yon 03-20-2023 Consent for Procedure/Surgery [id number]#1.0 0CD:127 [facility] Patient Educationon 03-20-20 23 [...] ? 8 oz (237 mL) of milk, hyaphmh-joorwvkjphau-j airy milk, and calcium-fortifiedfruit juice. Calcium-fortified means [...] Spinach (cooked), rhubarb, beets, sweet potatoes, and Belizean chard. ? Peanuts. ? Potato chips, vincentian fries, and baked potatoes with skin on. ? Nuts and nut products. ? Chocolate. ? If you regularly take a diuretic medicine, make sure to eat at least 1 or 2 servings of fruits or vegetables that are high in potassium each day. These include: ? Avocado. ? Banana. ? Clarks, prune, carrot, or tomato juice. ? Baked [...] fish oil, or vitamin B6. ? Take sjpp-vtv-xnjrdzd and prescription medicines only as told by your health care provider. These include supplements. What foods should I limit? Limit your in (more content not included)... Normal [facility] Urology Office/Clinic Noteon 03-20-2023 Urology Office/Clinic [...] Lt kidney pain. Did got to the [place] ER. DX'd & treated for UTI. (NEG [...] L. Ox slightly elevated. Pt presented to [facility] ER on 03/06/23 due to [...] mg qd. SEs discussed. Rx sent to [facility]. -Electrolyte panel 4 weeks to the day [...] With When Contact Information Nona VILLA MD, URL [facility] [address] [place] [address]- Additional Instructions: schedule R ESWL Patient Education I, Whitney Collier, personally scribed for Dr. Villa on 03/20/2023 11:28:22. . Documentation recorded by the scribeWhitney, accurately reflects the services(s) I performed and decisions made by me. Authenticated by Dr. Villa on 03/20/2023 11:30:43. Problem List/Past Medical History Ongoing Bipolar disorder BMI 33.0-33.9,adult Dysuria Feeling of incomplete bladder emptying Flank pain Frequency of urination History of kidney s (more content not included)... Normal [facility] Comment on above: Result Comment: Elec tronically Signed By: Nona VILLA MD\.br\Date and Time Signed: 03/20/23 11:30 EDT\.br\Electronically Co-Signed By: Whitney Collier\.br\Date and Time Co-Signed: 03/20/23 11:28 EDT CBC AUTO DIFFon 02-16-2023 BASO # 0.1 103/ul Normal 0.0-0.1 [facility] Comment on above: Performed By: #### U KJ 24 #### [facility] [address] [address] [address] Ramses Dumas Basophils/100 WBC (Bld) 0.5 % Normal 0.2-2.0 [facility] Comment on above: Performed By: #### U KJ 24 #### [facility] [address] [address] [address] Ramses Dumas EO # 0.0 103/ul Normal 0.0-0.7 [facility] Comment on above: Performed By: #### U KJ 24 #### [facility] [address] [place] [address] Dr. Ramses Dumas Eosinophils/100 WBC (Bld) 0.4 % Critically low 0.9-7.0 [facility] Comment on above: Performed By: #### U KJ 24 #### [facility] [address] [place] [address] Dr. Ramses Dumas Erythrocyte distribution width (RBC) [Ratio] 13.7 % Normal 11.0-15.0 [facility] Comment on above: Performed By: #### U KJ 24 #### [facility] [address] [place] [address] Dr. Ramses Dumas Hematocrit (Bld) [Volume fraction] 45.1 % Normal 36.0-48.0 [facility] Comment on above: Performed By: #### U KJ 24 #### [facility] [address] [place] [address] Dr. Ramses Dumas Hemoglobin (Bld) [Mass/Vol] 14.3 g/dL Normal 12.0-16.0 [facility] Comment on above: Performed By: #### U KJ 24 #### [facility] [address] [place] [address] Dr. Ramses Dumas IG # 0.02 10e3/ul Normal 0.00-0.03 [facility] Comment on above: Performed By: #### U KJ 24 #### [facility] [address] [place] [address] Dr. Ramses Dumas IG % 0.2 % Normal 0.0-0.5 [facility] Comment on above: Performed By: #### U KJ 24 #### [facility] [address] [place] [address] Dr. Ramses Dumas LYMPH # 2.5 103/ul Normal 1.2-3.8 [facility] Comment on above: Performed By: #### U KJ 24 #### [facility] [address] [place] [address] Dr. Ramses Dumas Lymphocytes/100 WBC (Bld) 26.4 % Normal 20.5-60.0 [facility] Comment on above: Performed By: #### U KJ 24 #### [facility] [address] [place] [address] Dr. Ramses Dumas MANUAL DIFF REQ NO Normal [facility] Comment on above: Performed By: #### U KJ 24 #### [facility] [address] [place] [address] Dr. Ramses Dumas MCH (RBC) [Entitic mass] 25.6 pg Critically low 26.7-34.0 [facility] Comment on above: Performed By: #### U KJ 24 #### [facility] [address] [place] [address] Dr. Ramses Dumas MCHC (RBC) [Mass/Vol] 31.7 g/dL Normal 29.9-35.2 [facility] Comment on above: Performed By: #### U KJ 24 #### [facility] [address] [place] [address] Dr. Ramses Dumas MCV (RBC) [Entitic vol] 80.7 fL Critically low 81.0-99.0 [facility] Comment on above: Performed By: #### U KJ 24 #### [facility] [address] [place] [address] Dr. Ramses Dumas MONO # 0.7 103/ul Normal 0.3-0.8 [facility] Comment on above: Performed By: #### U KJ 24 #### [facility] [address] [place] [address] Dr. Ramses Dumas Monocytes/100 WBC (Bld) 7.6 % Normal 1.7-12.0 [facility] Comment on above: Performed By: #### U KJ 24 #### [facility] [address] [place] [address] Dr. Ramses Dumas NEUT # 6.1 103/ul Normal 1.4-6.5 [facility] Comment on above: Performed By: #### U KJ 24 #### [facility] [address] [place] [address] Dr. Ramses Dumas Neutrophils/100 WBC (Bld) 64.9 % Normal 43.0-75.0 [facility] Comment on above: Performed By: #### U KJ 24 #### [facility] [address] [address] [address] Ramses Dumas Platelet mean volume (Bld) [Entitic vol] 11.0 fL Normal 9.5-13.5 [facility] Comment on above: Performed By: #### U KJ 24 #### [facility] [address] [place] [address] Dr. Ramses Dumas PLT 270 103/ul Normal 150-450 [facility] Comment on above: Performed By: #### U KJ 24 #### [facility] [address] [address] [address] Ramses Dumas RBC 5.59 106/ul Critically high 4.20-5.40 [facility] Comment on above: Performed By: #### U KJ 24 #### [facility] [address] [place] [address] Dr. Ramses Dumas WBC 9.4 103/ul Normal 4.0-11.0 [facility] Comment on above: Performed By: #### U KJ 24 #### [facility] [address] [place] [address] ABD/PELV W CONon [...] FARTUN NOVOA Date: 2023-02-16 18:21 Normal [facility] ER URINE PROFILEon 3 Bilirubin Ql (U) SMALL Abnormal NEGATIVE [facility] Comment on above: Performed By: #### C MP #### [facility] [address] [place] [address] Dr. Ramses Dumas Clarity (U) CLEAR Normal CLEAR [facility] Comment on above: Performed By: #### C MP #### [facility] [address] [place] [address] Dr. Ramses Dumas Color (U) YELLOW Normal YELLOW [facility] Comment on above: Performed By: #### C MP #### [facility] [address] [place] [address] Dr. Ramses VALLECILLOWalter A micrscopic examination will be performed if indicated. Normal [facility] Comment on above: Performed By: #### C MP #### [facility] [address] [place] [address] Dr. Ramses Dumas Glucose Ql (U) Negative Normal NEGATIVE [facility] Comment on above: Performed By: #### C MP #### [facility] [address] [place] [address] Dr. Ramses Dumas Hemoglobin Ql (U) Negative Normal NEGATIVE [facility] Comment on above: Performed By: #### C MP #### [facility] [address] [place] [address] Dr. Ramses Dumas Ketones Ql (U) 40 mg/dl Abnormal NEGATIVE [facility] Comment on above: Performed By: #### C MP #### [facility] [address] [place] [address] Dr. Ramses Dumas LEUKOCYTES SMALL Abnormal NEGATIVE [facility] Comment on above: Performed By: #### C MP #### [facility] [address] [place] [address] Dr. Ramses Dumas Nitrite Ql (U) Negative Normal NEGATIVE [facility] Comment on above: Performed By: #### C MP #### [facility] [address] [place] [address] Dr. Ramses Dumas pH (U) 7.0 [pH] Normal 5-9 [facility] Comment on above: Performed By: #### C MP #### [facility] [address] [place] [address] Dr. Ramses Dumas Protein (U) [Mass/Vol] 30 mg/dL Abnormal NEGAT CHRIS/ TRACE [facility] Comment on above: Performed By: #### C MP #### [facility] [address] [place] [address] Dr. Ramses Dumas SPEC GRAVITY 1.020 Normal 1.005-<=1.02 5 [facility] Comment on above: Performed By: #### C MP #### [facility] [address] [place] [address] Dr. Ramses Dumas UR MICRO IND INDICATED Normal [facility] Comment on above: Performed By: #### C MP #### [facility] [address] [place] [address] Dr. Ramses Dumas Urobilinogen Qn (U) 4 {Lucero'U}/dL Abnormal 0.2 - 1.0 [facility] Comment on above: Performed By: #### C MP #### [facility] [address] [place] [address] Dr. Ramses Dumas LIPASEon 02-16-2023 Lipase [Catalytic activity/Vol] 67.0 U/L Critically low 73.0-393.0 [facility] Comment on above: Performed By: #### U RCX #### [facility] [address] [address] [address] Ramses Dumas LIVER PROFILEon 02-16-2023 Albumin [Mass/Vol] 4.1 g/dL Normal 3.4-5.0 [facility] Comment on above: Performed By: #### U RCX #### [facility] [address] [address] [address] Ramses Dumas Albumin/Globulin [Mass ratio] 1.0 {ratio} Normal [facility] Comment on above: Performed By: #### U RCX #### [facility] [address] [address] [address] Ramses Dumas ALP [Catalytic activity/Vol] 85 U/L Normal 46-116 [facility] Comment on above: Performed By: #### U RCX #### [facility] [address] [place] [address] Dr. Ramses Dumas ALT [Catalytic activity/Vol] 61 U/L Critically high 14-59 [facility] Comment on above: Performed By: #### U RCX #### [facility] [address] [place] [address] Dr. Ramses Dumas AST [Catalytic activity/Vol] 43 U/L Critically high 15-37 [facility] Comment on above: Performed By: #### U RCX #### [facility] [address] [place] [address] Dr. Ramses Dumas BILI, CONJUGATED 0.1 mg/dL Normal 0.0-0.2 [facility] Comment on above: Performed By: #### U RCX #### [facility] [address] [place] [address] Dr. Ramses Dumas Bilirubin [Mass/Vol] 0.7 mg/dL Normal 0.2-1.0 [facility] Comment on above: Performed By: #### U RCX #### [facility] [address] [place] [address] Dr. Ramses Dumas Globulin (S) [Mass/Vol] 4.2 g/dL Normal [facility] Comment on above: Performed By: #### U RCX #### [facility] [address] [address] [address] Ramses Dumas Protein [Mass/Vol] 8.3 g/dL Critically high 6.4-8.2 [facility] Comment on above: Performed By: #### U RCX #### [facility] Laboratory [address] [address] [address] Ramses Dumas URon 02-16-2023 , QUAL Negative Normal NEGATIVE [facility] Comment on above: Performed By: #### C MP #### [facility] [address] [address] [address] Ramses Dumas PROF CHEM 8 (BAS METB)on Anion gap [Moles/Vol] 14.2 mmol/L Normal [facility] Comment on above: Performed By: #### U RCX #### [facility] [address] [address] [address] Ramses Dumas Calcium [Mass/Vol] 9.5 mg/dL Normal 8.5-10.1 [facility] Comment on above: Performed By: #### U RCX #### [facility] [address] [address] [address] Ramses Dumas Chloride [Moles/Vol] 102 mmol/L Normal 98-107 [facility] Comment on above: Performed By: #### U RCX #### [facility] [address] [address] [address] Ramses Dumas CO2 [Moles/Vol] 27.5 mmol/L Normal 21.0-32.0 [facility] Comment on above: Performed By: #### U RCX #### [facility] [address] [address] [address] Ramses Dumas Creatinine [Mass/Vol] 0.71 mg/dL Normal 0.55-1.02 [facility] Comment on above: Performed By: #### U RCX #### [facility] [address] [address] [address] Ramses Dumas EGFR-AF [facility] LUCIAN >60 Normal >=60 [facility] Comment on above: Performed By: #### U RCX #### [facility] [address] [address] [address] Ramses Dumas EGFR-NON AF [facility] LUCIAN >60 Normal >=60 [facility] Comment on above: Performed By: #### U RCX #### [facility] [address] [address] [address] Ramses Dumas Glucose [Mass/Vol] 90 mg/dL Normal 74-106 [facility] Comment on above: Performed By: #### U RCX #### [facility] [address] [address] [address] Ramses Dumas Potassium [Moles/Vol] 3.7 mmol/L Normal 3.5-5.1 [facility] Comment on above: Performed By: #### U RCX #### [facility] [address] [place] [address] Dr. Ramses Dumas Sodium [Moles/Vol] 140 mmol/L Normal 136-145 [facility] Comment on above: Performed By: #### U RCX #### [facility] [address] [address] [address] Ramses Dumas Urea nitrogen [Mass/Vol] 6.0 mg/dL Critically low 7.0-18.0 [facility] Comment on above: Performed By: #### U RCX #### [facility] [address] [place] [address] Dr. Ramses Dumas Urea nitrogen/Creatinine [Mass ratio] 8.5 mg/mg Normal [facility] Comment on above: Performed By: #### U RCX #### [facility] [address] [address] [address] Ramses Dumas URINE MICROSCOPIC ONLYon BACTERIA NONE SEEN Normal NONE SEEN [facility] Comment on above: Performed By: #### U KJ 24 #### [facility] [address] [place] [address] Dr. Ramses Dumas Bacteria identified Cx Nom (U) NOT INDICATED Normal [facility] Comment on above: Performed By: #### U KJ 24 #### [facility] [address] [place] [address] Dr. Ramses Dumas CAST NONE SEEN Normal NONE SEEN [facility] Comment on above: Performed By: #### U KJ 24 #### [facility] [address] [place] [address] Dr. Ramses Dumas Crystals LM Nom (Urine sed) NONE SEEN Normal NONE SEEN [facility] Comment on above: Performed By: #### U KJ 24 #### [facility] [address] [place] [address] Dr. Ramses Dumas Epithelial cells LM Ql (Urine sed) FEW Abnormal NONE SEEN /RARE [facility] Comment on above: Performed By: #### U KJ 24 #### [facility] [address] [place] [address] Dr. Ramses Dumas MUCOUS SMALL Abnormal NONE SEEN [facility] Comment on above: Performed By: #### U KJ 24 #### [facility] [address] [place] [address] Dr. Ramses Dumas RBC NONE SEEN Abnormal 0-2 [facility] Comment on above: Performed By: #### U KJ 24 #### [facility] [address] [place] [address] Dr. Ramses Dumas WBC 0-2 Abnormal NONE SEEN [facility] Comment on above: Performed By: #### U KJ 24 #### [facility] [address] [place] [address] Dr. Ramses Dumas PAP ACOG PANEL 2: 30 to 65on 02-10-2023 . . Normal [facility] Comment on above: Result Comment: Perf ormed at: WB Performed By: #### U RCX #### [facility] [address] [place] [address] Dr. Ramses Dumas Age Gdln ACOG Testing 30-65 Normal [facility] Comment on above: Performed By: #### U RCX #### [facility] [address] [place] [address] Dr. Ramses Dumas DIAGNOSIS: Comment Normal [facility] Comment on above: Result Comment: NEGA TIVE FOR INTRAEPITHELIAL LESION OR MALIGNANCY. REACTIVE CELLULAR CHANGES AND/OR REPAIR ARE PRESENT. Performed at: WB Performed By: #### U RCX #### [facility] [address] [place] [address] Dr. Ramses Dumas Electronically signed by: Comment Normal [facility] Comment on above: Result Comment: Chelsey Boston MD, Pathologist Performed at: WB Performed By: #### U RCX #### [facility] [address] [place] [address] Dr. Ramses Dumas HPV Aptima Negative Normal Negative [facility] Comment on above: Result Comment: This nucleic acid amplification test detects fourteen high-risk HPV types (16,18,31,33,35,39,45,51,52,56,58,59,66,68) without differentiation. Performed at: =G Performed By: #### U RCX #### [facility] [address] [place] [address] Dr. Ramses Dumas HPV Genotype Reflex Comment Normal [facility] Comment on above: Result Comment: Crit eria not met, HPV Genotype not performed. Performed at: WB Performed By: #### U RCX #### [facility] [address] [place] [address] Dr. Ramses Dumas Methodology: Comment Normal [facility] Comment on above: Result Comment: This liquid based ThinPrep(R) pap test was screened with the use of an image guided system. Performed at: WB Performed By: #### U RCX #### [facility] [address] [place] [address] Dr. Ramses Dumas Note: Comment Normal [facility] Comment on above: Result Comment: The Pap smear is a screening test designed to aid in the detection of premalignant and malignant conditions of the uterine cervix. It is not a diagnostic procedure and should not be used as the sole means of detecting cervical cancer. Both false-positive and false-negative reports do occur. . Performed at: WB Performed By: #### U RCX #### [facility] [address] [place] [address] Dr. Ramses Dumas Performed by: Comment Normal [facility] Comment on above: Result Comment: Cuca Briceno, Log Stacker Operator (ASCP) Performed at: WB Performed By: #### U RCX #### [facility] [address] [place] [address] Dr. Ramses Dumas Specimen adequacy: Comment Normal [facility] Comment on above: Result Comment: Sati sfactory for evaluation. Endocervical and/or squamous metaplastic cells (endocervical component) are present. Performed at: WB Performed By: #### U RCX #### [facility] [address] [place] [address] Dr. Ramses Dumas Lab Reportson 12-29-2022 Lab Reports [id number] 0CD:127 Normal [facility] RAD - MISCon 12-21-2022 RAD [facility] [id number] 0CD:127 Normal [facility] OXALATE 24HR URINEon 023 Oxalates, Urine 44 mg/L Normal Undefined [facility] Comment on above: Performed By: #### U KJ 24 #### [facility] [address] [place] [address] Dr. Ramses Dumas Oxalates, Urine 24hr 44 mg/24 hr Critically high 4-31 [facility] Comment on above: Performed By: #### U KJ 24 #### [facility] [address] [place] [address] Dr. Ramses Dumas CITRATE URINE 24HRon 023 Citric Acid, U, 24hr 658 mg/24 hr Normal 320-1240 [facility] Comment on above: Result Comment: This test was developed and its performance characteristics determined by [facility]. It has not been cleared or approved by the Food and Drug Administration. Performed By: #### C ITRATU #### [facility] [address] [place] [address] Dr. Ramses Dumas Citric Acid, Urine 658 mg/L Normal Undefined [facility] Comment on above: Performed By: #### C ITRATU #### [facility] [address] [place] [address] Dr. Ramses Dumas MAGNESIUM 24HR URINEon 12-17 Magnesium 24hr Urine 119.0 mg/24 hr Normal 12.0-293.0 [facility] Comment on above: Performed By: #### U RCX #### [facility] [address] [place] [address] Dr. Ramses Dumas Magnesium UR 11.9 mg/dL Normal Not Estab. [facility] Comment on above: Performed By: #### U RCX #### [facility] [address] [place] [address] Dr. Ramses Dumas PHOSPHORUS 24HR URINEon Phosphorus, Urine 81.4 mg/dL Normal Not Estab. The [facility] Comment on above: Performed By: #### B LDCX2 #### [facility] [address] [place] [address] Dr. Ramses Dumas Phosphorus, Urine 24hr 814 mg/24 hr Normal 261-1078 [facility] Comment on above: Performed By: #### B LDCX2 #### [facility] [address] [place] [address] Dr. Ramses Dumas PTH INTACTon 12-17-2022 PTH, Intact 46 pg/mL Normal 15-65 [facility] Comment on above: Performed By: #### U RCX #### [facility] [address] [place] [address] Dr. Ramses Dumas URIC ACID 24 HR URINEon Uric Acid, Urine 69.9 mg/dL Normal Not Estab. The [facility] Comment on above: Performed By: #### U KJ 24 #### [facility] [address] [place] [address] Dr. Ramses Dumas Uric Acid, Urine 24hr 699.0 mg/24 hr Normal 173.7-902. 1 [facility] Comment on above: Performed By: #### U KJ 24 #### [facility] [address] [place] [address] Dr. Ramses Dumas BUNon 12-16-2022 Urea nitrogen [Mass/Vol] 7.0 mg/dL Normal 7.0-18.0 [facility] Comment on above: Performed By: #### C BC #### [facility] [address] [place] [address] Dr. Ramses Dumas CALCIUMon 12-16-2022 Calcium [Mass/Vol] 8.8 mg/dL Normal 8.5-10.1 [facility] Comment on above: Performed By: #### C BC #### [facility] [address] [place] [address] Dr. Ramses Dumas CALCIUM 24 HR URINEon 2022 CALC, 24 HR UR 295.0 mg/24 hr Normal 100.0-300.0 [facility] Comment on above: Performed By: #### B LDCX2 #### [facility] [address] [place] [address] Dr. Ramses Dumas UR CALCIUM 29.5 mg/dL Critically high 5.1-21.0 [facility] Comment on above: Performed By: #### B LDCX2 #### [facility] [address] [place] [address] Dr. Ramses Dumas CHLORIDEon 12-16-2022 Chloride [Moles/Vol] 105 mmol/L Normal 98-107 [facility] Comment on above: Performed By: #### C BC #### [facility] [address] [place] [address] Dr. Ramses Dumas CO2on 12-16-2022 CO2 [Moles/Vol] 26.4 mmol/L Normal 21.0-32.0 [facility] Comment on above: Performed By: #### C MP #### [facility] [address] [place] [address] Dr. Ramses Dumas CREA 24 HR URINEon CREA, 24 HR UR 2337.30 mg/24 hr Critically high 800.00 -1,800 .00 [facility] Comment on above: Performed By: #### C VDTBH #### [facility] [address] [place] [address] Dr. Ramses Dumas URINE CREAT 233.73 mg/dL Normal 20.00-300.00 [facility] Comment on above: Performed By: #### C VDTBH #### [facility] [address] [place] [address] Dr. Ramses Dumas CREATININEon 12-16-2022 Creatinine [Mass/Vol] 0.70 mg/dL Normal 0.55-1.02 [facility] Comment on above: Performed By: #### C MP #### [facility] [address] [place] [address] Dr. Ramses Dumas EGFR-AF [facility] LUCIAN >60 Normal >=60 [facility] Comment on above: Performed By: #### C MP #### [facility] [address] [place] [address] Dr. Ramses Dumas EGFR-NON AF [facility]CI[facility] >60 Normal >=60 [facility] Comment on above: Performed By: #### C MP #### [facility] [address] [place] [address] Dr. Ramses Dumas NAon 12-16-2022 Sodium [Moles/Vol] 139 mmol/L Normal 136-145 [facility] Comment on above: Performed By: #### C MP #### [facility] [address] [place] [address] Dr. Ramses Dumas POTASSIUMon 12-16-2022 Potassium [Moles/Vol] 4.0 mmol/L Normal 3.5-5.1 [facility] Comment on above: Performed By: #### C MP #### [facility] [address] [place] [address] Dr. Ramses Dumas SODIUM 24 HR URINEon 023 NA, 24 HR UR 193 mmol/24 hr Normal 40-220 [facility] Comment on above: Performed By: #### C VDTBH #### [facility] [address] [place] [address] Dr. Ramses Dumas Sodium (U) [Moles/Vol] 193 mmol/L Critically high 30-90 [facility] Comment on above: Performed By: #### C VDTBH #### [facility] [address] [place] [address] Dr. Ramses Dumas UR TOT VOL 1000 ml/24 HR Normal [facility] Comment on above: Performed By: #### C VDTBH #### [facility] [address] [place] [address] Dr. Ramses Dumas Performed By: #### B LDCX2 #### [facility] [address] [place] [address] Dr. Ramses Dumas URIC ACID SERUMon 12-16-2022 Urate [Mass/Vol] 5.6 mg/dL Normal 2.6-6.0 [facility] Comment on above: Performed By: #### C MP #### [facility] [address] [place] [address] Dr. Ramses Dumas XR KUB 1 VIEWon [...] JENNIFER GATES Date: 2022-12-15 08:26 Normal [facility] CBC AUTO DIFFon 11-07-2022 BASO # 0.0 103/ul Normal 0.0-0.1 [facility] Comment on above: Performed By: #### U RCX #### [facility] [address] [place] [address] Dr. Ramses Dumas Basophils/100 WBC (Bld) 0.7 % Normal 0.2-2.0 [facility] Comment on above: Performed By: #### U RCX #### [facility] [address] [place] [address] Dr. Ramses Dumas EO # 0.1 103/ul Normal 0.0-0.7 [facility] Comment on above: Performed By: #### U RCX #### [facility] [address] [place] [address] Dr. Ramses Dumas Eosinophils/100 WBC (Bld) 1.9 % Normal 0.9-7.0 [facility] Comment on above: Performed By: #### U RCX #### [facility] [address] [place] [address] Dr. Ramses Dumas Erythrocyte distribution width (RBC) [Ratio] 13.6 % Normal 11.0-15.0 [facility] Comment on above: Performed By: #### U RCX #### [facility] [address] [place] [address] Dr. Ramses Dumas Hematocrit (Bld) [Volume fraction] 37.3 % Normal 36.0-48.0 [facility] Comment on above: Performed By: #### U RCX #### [facility] [address] [place] [address] Dr. Ramses Dumas Hemoglobin (Bld) [Mass/Vol] 12.2 g/dL Normal 12.0-16.0 [facility] Comment on above: Performed By: #### U RCX #### [facility] [address] [place] [address] Dr. Ramses Dumas IG # 0.02 10e3/ul Normal 0.00-0.03 [facility] Comment on above: Performed By: #### U RCX #### [facility] [address] [place] [address] Dr. Ramses Dumas IG % 0.3 % Normal 0.0-0.5 [facility] Comment on above: Performed By: #### U RCX #### [facility] [address] [place] [address] Dr. Ramses Dumas LYMPH # 2.3 103/ul Normal 1.2-3.8 [facility] Comment on above: Performed By: #### U RCX #### [facility] [address] [place] [address] Dr. Ramses Dumas Lymphocytes/100 WBC (Bld) 39.6 % Normal 20.5-60.0 [facility] Comment on above: Performed By: #### U RCX #### [facility] [address] [place] [address] Dr. Ramses Dumas MANUAL DIFF REQ NO Normal [facility] Comment on above: Performed By: #### U RCX #### [facility] [address] [place] [address] Dr. Ramses Dumas MCH (RBC) [Entitic mass] 26.4 pg Critically low 26.7-34.0 [facility] Comment on above: Performed By: #### U RCX #### [facility] [address] [place] [address] Dr. Ramses Dumas MCHC (RBC) [Mass/Vol] 32.7 g/dL Normal 29.9-35.2 [facility] Comment on above: Performed By: #### U RCX #### [facility] [address] [place] [address] Dr. Ramses Dumas MCV (RBC) [Entitic vol] 80.7 fL Critically low 81.0-99.0 [facility] Comment on above: Performed By: #### U RCX #### [facility] [address] [place] [address] Dr. Ramses Dumas MONO # 0.5 103/ul Normal 0.3-0.8 [facility] Comment on above: Performed By: #### U RCX #### [facility] [address] [place] [address] Dr. Ramses Dumas Monocytes/100 WBC (Bld) 8.0 % Normal 1.7-12.0 [facility] Comment on above: Performed By: #### U RCX #### [facility] [address] [place] [address] Dr. Ramses Dumas NEUT # 2.9 103/ul Normal 1.4-6.5 [facility] Comment on above: Performed By: #### U RCX #### [facility] [address] [place] [address] Dr. Ramses Dumas Neutrophils/100 WBC (Bld) 49.5 % Normal 43.0-75.0 [facility] Comment on above: Performed By: #### U RCX #### [facility] [address] [place] [address] Dr. Ramses Dumas Platelet mean volume (Bld) [Entitic vol] 9.0 fL Critically low 9.5-13.5 [facility] Comment on above: Performed By: #### U RCX #### [facility] [address] [place] [address] Dr. Ramses Dumas PLT 337 103/ul Normal 150-450 [facility] Comment on above: Performed By: #### U RCX #### [facility] [address] [place] [address] Dr. Ramses Dumas RBC 4.62 106/ul Normal 4.20-5.40 [facility] Comment on above: Performed By: #### U RCX #### [facility] [address] [place] [address] Dr. Ramses Dumas WBC 5.9 103/ul Normal 4.0-11.0 [facility] Comment on above: Performed By: #### U RCX #### [facility] [address] [place] [address] Dr. Ramses Dumas POINT OF CARE GLUCOSEon 10-20 Glucose [Mass/Vol] 115 mg/dL Critically high 74-106 [facility] Comment on above: Performed By: #### C VDTBH #### [facility] [address] [place] [address] Dr. Ramses Dumas PREG QUANT HCGon 11-07-2022 HCG QUANT <1 Normal [facility] Comment on above: Performed By: #### C VDTBH #### [facility] [address] [place] [address] Dr. Ramses Dumas HCG RANGE SEE BELOW Normal [facility] Comment on above: Result Comment: 5-50 0.2-1 WEEK 50-500 1-2 WEEKS 100-5,000 2-3 WEEKS 500-10,000 3-4 WEEKS 1,000-50,000 4-5 WEEKS 10,000-100,000 5-6 WEEKS 15,000-200,000 6-8 WEEKS 10,000-100,000 2-3 MONTHS Performed By: #### C VDTBH #### [facility] [address] [place] [address] Dr. Ramses Dumas US PELVIS AND TRANSVAGon [...] cm right ovarian simple cyst Normal [facility] CBC AUTO DIFFon 11-03-2022 BASO # 0.1 103/ul Normal 0.0-0.1 [facility] Comment on above: Performed By: #### U RCX #### [facility] [address] [place] [address] Dr. Ramses Dumas Basophils/100 WBC (Bld) 0.8 % Normal 0.2-2.0 [facility] Comment on above: Performed By: #### U RCX #### [facility] [address] [place] [address] Dr. Ramses Dumas EO # 0.1 103/ul Normal 0.0-0.7 [facility] Comment on above: Performed By: #### U RCX #### [facility] [address] [address] [address] Ramses Dumas Eosinophils/100 WBC (Bld) 1.4 % Normal 0.9-7.0 [facility] Comment on above: Performed By: #### U RCX #### [facility] [address] [place] [address] Dr. Ramses Dumas Erythrocyte distribution width (RBC) [Ratio] 13.4 % Normal 11.0-15.0 [facility] Comment on above: Performed By: #### U RCX #### [facility] [address] [place] [address] Dr. Ramses Dumas Hematocrit (Bld) [Volume fraction] 38.8 % Normal 36.0-48.0 [facility] Comment on above: Performed By: #### U RCX #### [facility] [address] [place] [address] Dr. Ramses Dumas Hemoglobin (Bld) [Mass/Vol] 12.7 g/dL Normal 12.0-16.0 [facility] Comment on above: Performed By: #### U RCX #### [facility] [address] [place] [address] Dr. Ramses Dumas IG # 0.01 10e3/ul Normal 0.00-0.03 [facility] Comment on above: Performed By: #### U RCX #### [facility] [address] [place] [address] Dr. Ramses Dumas IG % 0.1 % Normal 0.0-0.5 [facility] Comment on above: Performed By: #### U RCX #### [facility] [address] [place] [address] Dr. Ramses Dumas LYMPH # 1.9 103/ul Normal 1.2-3.8 [facility] Comment on above: Performed By: #### U RCX #### [facility] [address] [place] [address] Dr. Ramses Dumas Lymphocytes/100 WBC (Bld) 26.4 % Normal 20.5-60.0 [facility] Comment on above: Performed By: #### U RCX #### [facility] [address] [place] [address] Dr. Ramses Dumas MANUAL DIFF REQ NO Normal [facility] Comment on above: Performed By: #### U RCX #### [facility] [address] [place] [address] Dr. Ramses Dumas MCH (RBC) [Entitic mass] 26.3 pg Critically low 26.7-34.0 [facility] Comment on above: Performed By: #### U RCX #### [facility] [address] [place] [address] Dr. Ramses Dumas MCHC (RBC) [Mass/Vol] 32.7 g/dL Normal 29.9-35.2 [facility] Comment on above: Performed By: #### U RCX #### [facility] [address] [place] [address] Dr. Ramses Dumas MCV (RBC) [Entitic vol] 80.5 fL Critically low 81.0-99.0 [facility] Comment on above: Performed By: #### U RCX #### [facility] [address] [place] [address] Dr. Ramses Dumas MONO # 0.6 103/ul Normal 0.3-0.8 [facility] Comment on above: Performed By: #### U RCX #### [facility] [address] [place] [address] Dr. Ramses Dumas Monocytes/100 WBC (Bld) 8.2 % Normal 1.7-12.0 [facility] Comment on above: Performed By: #### U RCX #### [facility] [address] [place] [address] Dr. Ramses Dumas NEUT # 4.5 103/ul Normal 1.4-6.5 [facility] Comment on above: Performed By: #### U RCX #### [facility] [address] [place] [address] Dr. Ramses Dumas Neutrophils/100 WBC (Bld) 63.1 % Normal 43.0-75.0 [facility] Comment on above: Performed By: #### U RCX #### [facility] [address] [place] [address] Dr. Ramses Dumas Platelet mean volume (Bld) [Entitic vol] 8.9 fL Critically low 9.5-13.5 [facility] Comment on above: Performed By: #### U RCX #### [facility] [address] [place] [address] Dr. Ramses Dumas PLT 340 103/ul Normal 150-450 [facility] Comment on above: Performed By: #### U RCX #### [facility] [address] [place] [address] Dr. Ramses Dumas RBC 4.82 106/ul Normal 4.20-5.40 [facility] Comment on above: Performed By: #### U RCX #### [facility] [id number] Ramses Dumas WBC 7.1 103/ul Normal 4.0-11.0 [facility] Comment on above: Performed By: #### U RCX #### [facility] [address] [place] [address] Dr. Ramses Dumas Covid-19 PCR ([facility])on 10-19 SARS-CoV-2 (COVID-19) RNA FRANCESCA+probe Ql (Unsp spec) Not detected Normal NOT DETECTED [facility] Comment on above: Result Comment: This test is not yet approved or cleared by the [place] FDA. When there are no FDA-approved or cleared tests available, and other criteria are met, FDA can make tests available under an emergency access mechanism called an Emergency Use Authorization (EUA). The EUA for this test is supported by the [place] of Health and Human Service's (HHS's) declaration [...] SARS-CoV-2. Performed By: #### U RCX #### [facility] [address] [place] [address] Dr. Ramses Dumas FREE T4on 11-03-2022 Free T4 [Mass/Vol] 0.99 ng/dL Normal 0.76-1.46 [facility] Comment on above: Performed By: #### B LDCX2 #### [facility] [address] [place] [address] Dr. Ramses Dumas GLYCOHEMOGLOBIN A1Con 2022 ADA RECOMMENDATION SEE BELOW Normal [facility] Comment on above: Result Comment: ADA RECOMMENDED LIMIT 4.0 - 6.0 ADA THERAPEUTIC TARGET < 7.0 ACTION SUGGESTED > 7.0 Performed By: #### C VDTBH #### [facility] [address] [address] [address] Ramses Dumas Glucose [Mass/Vol] 117 mg/dL Normal [facility] Comment on above: Performed By: #### C VDTBH #### [facility] [address] [place] [address] Dr. Ramses Dumas HbA1c (Bld) [Mass fraction] 5.7 % Normal 4.5-6.2 [facility] Comment on above: Performed By: #### C VDTBH #### [facility] [address] [place] [address] Dr. Ramses Dumas PROTIMEon 11-03-2022 INR Coag (PPP) [Relative time] 0.97 {INR} Normal [facility] Comment on above: Performed By: #### U KJ 24 #### [facility] [address] [place] [address] Dr. Ramses Dumas INR GUIDELINES SEE BELOW Normal [facility] Comment on above: Result Comment: TOÑA RED INR: 2.0 - 3.0 CONDITIONS NOT LISTED BELOW 2.5 - 3.5 FOR PROSTHETIC HEART VALVE REPLACEMENT 2.5 - 3.5 RECURRENT THROMBOSIS Performed By: #### U KJ 24 #### [facility] [address] [place] [address] Dr. Ramses Dumas PT Coag (PPP) [Time] 10.3 s Normal 9.0-11.6 [facility] Comment on above: Performed By: #### U KJ 24 #### [facility] [address] [place] [address] Dr. Ramses Dumas PTTon 11-03-2022 aPTT Coag (Bld) [Time] 27.7 s Normal 22.3-36.2 [facility] Comment on above: Performed By: #### U KJ 24 #### [facility] [address] [place] [address] Dr. Ramses Dumas TSHon 11-03-2022 TSH 0.667 uIU/mL Normal 0.358-3.740 [facility] Comment on above: Performed By: #### C VDTBH #### [facility] [address] [place] [address] Dr. Ramses Dumas PREG HCG QUALon 09-18-2022 , QUAL Negative Normal NEGATIVE [facility] Comment on above: Performed By: #### U KJ 24 #### [facility] [address] [place] [address] Dr. Ramses Dumas Covid-19 PCR ([facility])on 08-20 SARS-CoV-2 (COVID-19) RNA FRANCESCA+probe Ql (Unsp spec) Not detected Normal NOT DETECTED [facility] Comment on above: Result Comment: This test is not yet approved or cleared by the [place] FDA. When there are no FDA-approved or cleared tests available, and other criteria are met, FDA can make tests available under an emergency access mechanism called an Emergency Use Authorization (EUA). The EUA for this test is supported by the [place] of Health and Human Service's (HHS's) declaration [...] SARS-CoV-2. Performed By: #### C VDTBH #### [facility] [address] [place] [address] Dr. Ramses Dumas CBC AUTO DIFFon 09-05-2022 BASO # 0.1 103/ul Normal 0.0-0.1 [facility] Comment on above: Performed By: #### B LDCX2 #### [facility] [address] [place] [address] Dr. Ramses Dumas Basophils/100 WBC (Bld) 0.7 % Normal 0.2-2.0 [facility] Comment on above: Performed By: #### B LDCX2 #### [facility] [address] [place] [address] Dr. Ramses Dumas EO # 0.2 103/ul Normal 0.0-0.7 [facility] Comment on above: Performed By: #### B LDCX2 #### [facility] [address] [place] [address] Dr. Ramses Dumas Eosinophils/100 WBC (Bld) 2.2 % Normal 0.9-7.0 [facility] Comment on above: Performed By: #### B LDCX2 #### [facility] [address] [place] [address] Dr. Ramses Dumas Erythrocyte distribution width (RBC) [Ratio] 13.9 % Normal 11.0-15.0 [facility] Comment on above: Performed By: #### B LDCX2 #### [facility] [address] [place] [address] Dr. Ramses Dumas Hematocrit (Bld) [Volume fraction] 38.8 % Normal 36.0-48.0 [facility] Comment on above: Performed By: #### B LDCX2 #### [facility] [address] [place] [address] Dr. Ramses Dumas Hemoglobin (Bld) [Mass/Vol] 12.6 g/dL Normal 12.0-16.0 [facility] Comment on above: Performed By: #### B LDCX2 #### [facility] [address] [place] [address] Dr. Ramses Dumas IG # 0.03 10e3/ul Normal 0.00-0.03 [facility] Comment on above: Performed By: #### B LDCX2 #### [facility] [address] [place] [address] Dr. Ramses Dumas IG % 0.3 % Normal 0.0-0.5 [facility] Comment on above: Performed By: #### B LDCX2 #### [facility] [address] [place] [address] Dr. Ramses Dumas LYMPH # 2.3 103/ul Normal 1.2-3.8 [facility] Comment on above: Performed By: #### B LDCX2 #### [facility] [address] [place] [address] Dr. Ramses Dumas Lymphocytes/100 WBC (Bld) 21.3 % Normal 20.5-60.0 [facility] Comment on above: Performed By: #### B LDCX2 #### [facility] [address] [place] [address] Dr. Ramses Dumas MANUAL DIFF REQ NO Normal [facility] Comment on above: Performed By: #### B LDCX2 #### [facility] [address] [place] [address] Dr. Ramses Dumas MCH (RBC) [Entitic mass] 26.4 pg Critically low 26.7-34.0 [facility] Comment on above: Performed By: #### B LDCX2 #### [facility] [address] [place] [address] Dr. Ramses Dumas MCHC (RBC) [Mass/Vol] 32.5 g/dL Normal 29.9-35.2 [facility] Comment on above: Performed By: #### B LDCX2 #### [facility] [address] [place] [address] Dr. Ramses Dumas MCV (RBC) [Entitic vol] 81.2 fL Normal 81.0-99.0 [facility] Comment on above: Performed By: #### B LDCX2 #### [facility] [address] [place] [address] Dr. Ramses Dumas MONO # 0.8 103/ul Normal 0.3-0.8 [facility] Comment on above: Performed By: #### B LDCX2 #### [facility] [address] [place] [address] Dr. Ramses Dumas Monocytes/100 WBC (Bld) 7.4 % Normal 1.7-12.0 [facility] Comment on above: Performed By: #### B LDCX2 #### [facility] [address] [place] [address] Dr. Ramses Dumas NEUT # 7.3 103/ul Critically high 1.4-6.5 [facility] Comment on above: Performed By: #### B LDCX2 #### [facility] [address] [place] [address] Dr. Ramses Dumas Neutrophils/100 WBC (Bld) 68.1 % Normal 43.0-75.0 [facility] Comment on above: Performed By: #### B LDCX2 #### [facility] [address] [place] [address] Dr. Ramses Dumas Platelet mean volume (Bld) [Entitic vol] 8.8 fL Critically low 9.5-13.5 [facility] Comment on above: Performed By: #### B LDCX2 #### [facility] [address] [place] [address] Dr. Ramses Dumas PLT 323 103/ul Normal 150-450 [facility] Comment on above: Performed By: #### B LDCX2 #### [facility] [address] [place] [address] Dr. Ramses Dumas RBC 4.78 106/ul Normal 4.20-5.40 [facility] Comment on above: Performed By: #### B LDCX2 #### [facility] [address] [place] [address] Dr. Ramses Dumas WBC 10.7 103/ul Normal 4.0-11.0 [facility] Comment on above: Performed By: #### B LDCX2 #### [facility] [address] [place] [address] Dr. Ramses Dumas CULTURE URINEon 09-05-2022 CULTURE URINE Culture Observations : LIGHT GROWTH OF MIXED GENITAL DAIANA. NO POTENTIAL PATHOGENS SEEN. Normal [facility] Comment on above: Performed By: #### U RCX #### [facility] [address] [place] [address] Dr. Ramses KUMAR URINE PROFILEon 2 Bilirubin Ql (U) Negative Normal NEGATIVE [facility] Comment on above: Performed By: #### B LDCX2 #### [facility] [address] [place] [address] Dr. Ramses Dumas Clarity (U) CLOUDY Abnormal CLEAR [facility] Comment on above: Performed By: #### B LDCX2 #### [facility] [address] [place] [address] Dr. Ramses Dumas Color (U) YELLOW Normal YELLOW [facility] Comment on above: Performed By: #### B LDCX2 #### [facility] [address] [place] [address] Dr. Ramses DELEON A micrscopic examination will be performed if indicated. Normal [facility] Comment on above: Performed By: #### B LDCX2 #### [facility] [address] [place] [address] Dr. Ramses Dumas Glucose Ql (U) Negative Normal NEGATIVE [facility] Comment on above: Performed By: #### B LDCX2 #### [facility] [address] [place] [address] Dr. Ramses Dumas Hemoglobin Ql (U) LARGE Abnormal NEGATIVE [facility] Comment on above: Performed By: #### B LDCX2 #### [facility] [address] [place] [address] Dr. Ramses Dumas Ketones Ql (U) Negative Normal NEGATIVE [facility] Comment on above: Performed By: #### B LDCX2 #### [facility] [address] [place] [address] Dr. Ramses Dumas LEUKOCYTES SMALL Abnormal NEGATIVE [facility] Comment on above: Performed By: #### B LDCX2 #### [facility] [address] [place] [address] Dr. Ramses Dumas Nitrite Ql (U) Negative Normal NEGATIVE [facility] Comment on above: Performed By: #### B LDCX2 #### [facility] [address] [place] [address] Dr. Ramses Dumas pH (U) 6.0 [pH] Normal 5-9 [facility] Comment on above: Performed By: #### B LDCX2 #### [facility] [address] [place] [address] Dr. Ramses Dumas Protein (U) [Mass/Vol] 100 mg/dL Abnormal NEGAT CHRIS/ TRACE [facility] Comment on above: Performed By: #### B LDCX2 #### [facility] [address] [place] [address] Dr. Ramses Dumas SPEC GRAVITY >=1.030 Abnormal 1.005-<=1.02 5 [facility] Comment on above: Performed By: #### B LDCX2 #### [facility] [address] [place] [address] Dr. Ramses Dumas UR MICRO IND INDICATED Normal [facility] Comment on above: Performed By: #### B LDCX2 #### [facility] [address] [place] [address] Dr. Ramses Dumas Urobilinogen Qn (U) 0.2 {Lucero'U}/dL Normal 0.2 - 1. 0 [facility] Comment on above: Performed By: #### B LDCX2 #### [facility] [address] [place] [address] Dr. Ramses Duams URon 09-05-2022 , QUAL Negative Normal NEGATIVE [facility] Comment on above: Performed By: #### B LDCX2 #### [facility] [address] [place] [address] Dr. Ramses Dumas PROF CHEM 8 (BAS METB)on Anion gap [Moles/Vol] 11.7 mmol/L Normal [facility] Comment on above: Performed By: #### C MP #### [facility] [address] [place] [address] Dr. Ramses Dumas Calcium [Mass/Vol] 9.1 mg/dL Normal 8.5-10.1 [facility] Comment on above: Performed By: #### C MP #### [facility] [address] [address] [address] Ramses Dumas Chloride [Moles/Vol] 103 mmol/L Normal 98-107 [facility] Comment on above: Performed By: #### C MP #### [facility] [address] [address] [address] Ramses Dumas CO2 [Moles/Vol] 25.9 mmol/L Normal 21.0-32.0 [facility] Comment on above: Performed By: #### C MP #### [facility] [address] [place] [address] Dr. Ramses Dumas Creatinine [Mass/Vol] 0.77 mg/dL Normal 0.55-1.02 [facility] Comment on above: Performed By: #### C MP #### [facility] [address] [place] [address] Dr. Ramses Dumas EGFR-AF [facility] LUCIAN >60 Normal >=60 [facility] Comment on above: Performed By: #### C MP #### [facility] [address] [address] [address] Ramses Dumas EGFR-NON AF [facility] >60 Normal >=60 [facility] Comment on above: Performed By: #### C MP #### [facility] [address] [address] [address] Ramses Dumas Glucose [Mass/Vol] 124 mg/dL Critically high 74-106 T [facility] Comment on above: Performed By: #### C MP #### [facility] [address] [place] [address] Dr. Ramses Dumas Potassium [Moles/Vol] 3.6 mmol/L Normal 3.5-5.1 [facility] Comment on above: Performed By: #### C MP #### [facility] [address] [place] [address] Dr. Ramses Dumas Sodium [Moles/Vol] 137 mmol/L Normal 136-145 [facility] Comment on above: Performed By: #### C MP #### [facility] [address] [address] [address] Ramses Dumas Urea nitrogen [Mass/Vol] 12.0 mg/dL Normal 7.0-18.0 [facility] Comment on above: Performed By: #### C MP #### [facility] [address] [place] [address] Dr. Ramses Dumas Urea nitrogen/Creatinine [Mass ratio] 15.6 mg/mg Normal [facility] Comment on above: Performed By: #### C MP #### [facility] [address] [place] [address] Dr. Ramses Dumas URINE MICROSCOPIC ONLYon AMORPHOUS CRYSTALS RARE Normal [facility] Comment on above: Performed By: #### B LDCX2 #### [facility] [address] [place] [address] Dr. Ramses Dumas BACTERIA TRACE Abnormal NONE SEEN [facility] Comment on above: Performed By: #### B LDCX2 #### [facility] [address] [place] [address] Dr. Ramses Dumas Bacteria identified Cx Nom (U) INDICATED Normal [facility] Comment on above: Performed By: #### B LDCX2 #### [facility] [address] [place] [address] Dr. Ramses Dumas CA OX CRYSTALS RARE Normal [facility] Comment on above: Performed By: #### B LDCX2 #### [facility] [address] [place] [address] Dr. Ramses Dumas CAST NONE SEEN Normal NONE SEEN [facility] Comment on above: Performed By: #### B LDCX2 #### [facility] [address] [place] [address] Dr. Ramses Dumas Crystals LM Nom (Urine sed) SEEN Abnormal NONE SEEN [facility] Comment on above: Performed By: #### B LDCX2 #### [facility] [address] [place] [address] Dr. Ramses Dumas Epithelial cells LM Ql (Urine sed) FEW Abnormal NONE SEEN /RARE [facility] Comment on above: Performed By: #### B LDCX2 #### [facility] [address] [place] [address] Dr. Ramses Dumas MUCOUS TRACE Abnormal NONE SEEN [facility] Comment on above: Performed By: #### B LDCX2 #### [facility] [address] [address] [address] Ramses Dumas RBC 50-75 Abnormal 0-2 [facility] Comment on above: Performed By: #### B LDCX2 #### [facility] [address] [address] [address] Ramses Dumas WBC 20-50 Abnormal NONE SEEN [facility] Comment on above: Performed By: #### B LDCX2 #### [facility] [address] [address] [address] Ramses Dumas YEAST PRESENT Abnormal NONE SEEN [facility] Comment on above: Performed By: #### B LDCX2 #### [facility] [address] [place] [address] Dr. Ramses Dumas US KIDNEYSon 09-05-2022 US [...] GLEN [place]RAFF Date: 2022-09-05 11:00 Normal [facility] CT ABD/PELVIS WO CONon 08-29 CT [...] ERICKA IGLESIAS Date: 2022-08-29 01:10 Normal [facility] CULTURE URINEon 08-29-2022 CULTURE URINE Culture Observations : LIGHT GROWTH OF MIXED GENITAL DAIANA. NO POTENTIAL PATHOGENS SEEN. Normal [facility] Comment on above: Performed By: #### U RCX #### [facility] [address] [address] [address] Ramses Dumas CBC AUTO DIFFon 08-28-2022 BASO # 0.1 103/ul Normal 0.0-0.1 [facility] Comment on above: Performed By: #### U RCX #### [facility] [address] [address] [address] Ramses Dumas Basophils/100 WBC (Bld) 0.5 % Normal 0.2-2.0 [facility] Comment on above: Performed By: #### U RCX #### [facility] [address] [address] [address] Ramses Dumas EO # 0.3 103/ul Normal 0.0-0.7 [facility] Comment on above: Performed By: #### U RCX #### [facility] [address] [place] [address] Dr. Ramses Dumas Eosinophils/100 WBC (Bld) 2.3 % Normal 0.9-7.0 [facility] Comment on above: Performed By: #### U RCX #### [facility] [address] [place] [address] Dr. Ramses Dumas Erythrocyte distribution width (RBC) [Ratio] 13.7 % Normal 11.0-15.0 [facility] Comment on above: Performed By: #### U RCX #### [facility] [address] [place] [address] Dr. Ramses Dumas Hematocrit (Bld) [Volume fraction] 36.7 % Normal 36.0-48.0 [facility] Comment on above: Performed By: #### U RCX #### [facility] [address] [place] [address] Dr. Ramses Dumas Hemoglobin (Bld) [Mass/Vol] 12.3 g/dL Normal 12.0-16.0 [facility] Comment on above: Performed By: #### U RCX #### [facility] [address] [place] [address] Dr. Ramses Dumas IG # 0.16 10e3/ul Critically high 0.00-0.03 [facility] Comment on above: Performed By: #### U RCX #### [facility] [address] [place] [address] Dr. Ramses Dumas IG % 1.1 % Critically high 0.0-0.5 [facility] Comment on above: Performed By: #### U RCX #### [facility] [address] [place] [address] Dr. Ramses Dumas LYMPH # 4.6 103/ul Critically high 1.2-3.8 [facility] Comment on above: Performed By: #### U RCX #### [facility] [address] [place] [address] Dr. Ramses Dumas Lymphocytes/100 WBC (Bld) 31.8 % Normal 20.5-60.0 [facility] Comment on above: Performed By: #### U RCX #### [facility] [address] [place] [address] Dr. Ramses Dumas MANUAL DIFF REQ NO Normal [facility] Comment on above: Performed By: #### U RCX #### [facility] [address] [place] [address] Dr. Ramses Dumas MCH (RBC) [Entitic mass] 26.9 pg Normal 26.7-34.0 [facility] Comment on above: Performed By: #### U RCX #### [facility] [address] [place] [address] Dr. Ramses Dumas MCHC (RBC) [Mass/Vol] 33.5 g/dL Normal 29.9-35.2 [facility] Comment on above: Performed By: #### U RCX #### [facility] [address] [place] [address] Dr. Ramses Dumas MCV (RBC) [Entitic vol] 80.3 fL Critically low 81.0-99.0 [facility] Comment on above: Performed By: #### U RCX #### [facility] [address] [place] [address] Dr. Ramses Dumas MONO # 1.0 103/ul Critically high 0.3-0.8 [facility] Comment on above: Performed By: #### U RCX #### [facility] [address] [place] [address] Dr. Ramses Dumas Monocytes/100 WBC (Bld) 7.0 % Normal 1.7-12.0 [facility] Comment on above: Performed By: #### U RCX #### [facility] [address] [place] [address] Dr. Ramses Dumas NEUT # 8.2 103/ul Critically high 1.4-6.5 [facility] Comment on above: Performed By: #### U RCX #### [facility] [address] [place] [address] Dr. Ramses Dumas Neutrophils/100 WBC (Bld) 57.3 % Normal 43.0-75.0 [facility] Comment on above: Performed By: #### U RCX #### [facility] [address] [place] [address] Dr. Ramses Dumas Platelet mean volume (Bld) [Entitic vol] 8.6 fL Critically low 9.5-13.5 [facility] Comment on above: Performed By: #### U RCX #### [facility] [address] [place] [address] Dr. Ramses Dumas PLT 395 103/ul Normal 150-450 [facility] Comment on above: Performed By: #### U RCX #### [facility] [address] [place] [address] Dr. Ramses Dumas RBC 4.57 106/ul Normal 4.20-5.40 [facility] Comment on above: Performed By: #### U RCX #### [facility] [address] [place] [address] Dr. Ramses Dumas WBC 14.3 103/ul Critically high 4.0-11.0 [facility] Comment on above: Performed By: #### U RCX #### [facility] [address] [place] [address] Dr. Ramses Dumas ER URINE PROFILEon 2 Bilirubin Ql (U) Negative Normal NEGATIVE [facility] Comment on above: Performed By: #### U KJ 24 #### [facility] [address] [place] [address] Dr. Ramses Dumas Clarity (U) CLEAR Normal CLEAR [facility] Comment on above: Performed By: #### U KJ 24 #### [facility] [address] [place] [address] Dr. Ramses Dumas Color (U) LT. YELLOW Normal YELLOW [facility] Comment on above: Performed By: #### U KJ 24 #### [facility] [address] [place] [address] Dr. Ramses Dumas ERUAHD A micrscopic examination will be performed if indicated. Normal [facility] Comment on above: Performed By: #### U KJ 24 #### [facility] [address] [address] [address] Ramses Dumas Glucose Ql (U) Negative Normal NEGATIVE [facility] Comment on above: Performed By: #### U KJ 24 #### [facility] [address] [address] [address] Ramses Dumas Hemoglobin Ql (U) LARGE Abnormal NEGATIVE [facility] Comment on above: Performed By: #### U KJ 24 #### [facility] [address] [address] [address] Ramses Dumas Ketones Ql (U) Negative Normal NEGATIVE [facility] [facility] Comment on above: Performed By: #### U KJ 24 #### [facility] [address] [place] [address] Dr. Ramses Dumas LEUKOCYTES MODERATE Abnormal NEGATIVE [facility] [place] Comment on above: Performed By: #### U KJ 24 #### [facility] [address] [place] [address] Dr. Ramses Dumas Nitrite Ql (U) Negative Normal NEGATIVE [facility] Comment on above: Performed By: #### U KJ 24 #### [facility] [address] [place] [address] Dr. Ramses Dumas pH (U) 6.5 [pH] Normal 5-9 [facility] [place] Comment on above: Performed By: #### U KJ 24 #### [facility] [address] [place] [address] Dr. Ramses Dumas Protein (U) [Mass/Vol] 100 mg/dL Abnormal NEGAT CHRIS/ TRACE [facility] Comment on above: Performed By: #### U KJ 24 #### [facility] [address] [place] [address] Dr. Ramses Dumas SPEC GRAVITY 1.020 Normal 1.005-<=1.02 5 [facility] [place] Comment on above: Performed By: #### U KJ 24 #### [facility] [address] [place] [address] Dr. Ramses Dumas UR MICRO IND INDICATED Normal [facility] Comment on above: Performed By: #### U KJ 24 #### [facility] [address] [address] [address] Ramses Dumas Urobilinogen Qn (U) 0.2 {Lucero'U}/dL Normal 0.2 - 1. 0 [facility] [place] Comment on above: Performed By: #### U KJ 24 #### [facility] [address] [place] [address] Dr. Ramses Dumas PROF 14(COMP METB)on 022 Albumin [Mass/Vol] 3.3 g/dL Critically low 3.4-5.0 [facility] Comment on above: Performed By: #### C MP #### [facility] [address] [place] [address] Dr. Ramses Dumas Albumin/Globulin [Mass ratio] 0.8 {ratio} Normal [facility] [place] Comment on above: Performed By: #### C MP #### [facility] [address] [place] [address] Dr. Ramses Dumas ALP [Catalytic activity/Vol] 108 U/L Normal 46-116 [facility] [place] Comment on above: Performed By: #### C MP #### [facility] [address] [place] [address] Dr. Ramses Dumas ALT [Catalytic activity/Vol] 103 U/L Critically high 14-59 [facility] [place] Comment on above: Performed By: #### C MP #### [facility] [address] [place] [address] Dr. Ramses Dumas Anion gap [Moles/Vol] 6.6 mmol/L Normal [facility] [place] Comment on above: Performed By: #### C MP #### [facility] [address] [place] [address] Dr. Ramses Dumas AST [Catalytic activity/Vol] 21 U/L Normal 15-37 [facility] [place] Comment on above: Performed By: #### C MP #### [facility] [address] [place] [address] Dr. Ramses Dumas Bilirubin [Mass/Vol] 0.2 mg/dL Normal 0.2-1.0 [facility] [place] Comment on above: Performed By: #### C MP #### [facility] [address] [address] [address] Ramses Dumas Calcium [Mass/Vol] 9.2 mg/dL Normal 8.5-10.1 [facility] Comment on above: Performed By: #### C MP #### [facility] [address] [address] [address] Ramses Dumas Chloride [Moles/Vol] 102 mmol/L Normal 98-107 [facility] [place] Comment on above: Performed By: #### C MP #### [facility] [address] [address] [address] Ramses Dumas CO2 [Moles/Vol] 28.8 mmol/L Normal 21.0-32.0 [facility] Comment on above: Performed By: #### C MP #### [facility] [address] [place] [address] Dr. Ramses Dumas Creatinine [Mass/Vol] 0.92 mg/dL Normal 0.55-1.02 [facility] [place] Comment on above: Performed By: #### C MP #### [facility] [address] [place] [address] Dr. Ramses Dumas EGFR-AF [facility]CIAN >60 Normal >=60 [facility] Comment on above: Performed By: #### C MP #### [facility] [address] [place] [address] Dr. Ramses Dumas EGFR-NON AF [facility] >60 Normal >=60 [facility] [place] Comment on above: Performed By: #### C MP #### [facility] [address] [address] [address] Ramses Dumas Globulin (S) [Mass/Vol] 4.1 g/dL Normal [facility] [place] Comment on above: Performed By: #### C MP #### [facility] [address] [place] [address] Dr. Ramses Dumas Glucose [Mass/Vol] 114 mg/dL Critically high 74-106 T [facility] Comment on above: Performed By: #### C MP #### [facility] [address] [place] [address] Dr. Ramses Dumas Potassium [Moles/Vol] 3.4 mmol/L Critically low 3.5-5.1 [facility] [place] Comment on above: Performed By: #### C MP #### [facility] [address] [place] [address] Dr. Ramses Dumas Protein [Mass/Vol] 7.4 g/dL Normal 6.4-8.2 [facility] Comment on above: Performed By: #### C MP #### [facility] [address] [address] [address] Ramses Dumas Sodium [Moles/Vol] 134 mmol/L Critically low 136-145 Th [facility] Comment on above: Performed By: #### C MP #### [facility] [address] [place] [address] Dr. Ramses Dumas Urea nitrogen [Mass/Vol] 11.0 mg/dL Normal 7.0-18.0 [facility] [place] Comment on above: Performed By: #### C MP #### [facility] [address] [place] [address] Dr. Ramses Dumas Urea nitrogen/Creatinine [Mass ratio] 12.0 mg/mg Normal [facility] [place] Comment on above: Performed By: #### C MP #### [facility] [address] [place] [address] Dr. Ramses Dumas URINE MICROSCOPIC ONLYon BACTERIA MODERATE Abnormal NONE SEEN [facility] [place] Comment on above: Performed By: #### U KJ 24 #### [facility] [address] [place] [address] Dr. Ramses Dumas Bacteria identified Cx Nom (U) INDICATED Normal [facility] [place] Comment on above: Performed By: #### U KJ 24 #### [facility] [address] [place] [address] Dr. Ramses Dumas CAST NONE SEEN Normal NONE SEEN [facility] [place] Comment on above: Performed By: #### U KJ 24 #### [facility] [address] [place] [address] Dr. Ramses Dumas Crystals LM Nom (Urine sed) NONE SEEN Normal NONE SEEN [facility] [place] Comment on above: Performed By: #### U KJ 24 #### [facility] [address] [address] [address] Ramses Dumas Epithelial cells LM Ql (Urine sed) RARE Normal NONE SEEN /RARE [facility] Comment on above: Performed By: #### U KJ 24 #### [facility] [address] [place] [address] Dr. Ramses Dumas MUCOUS NONE SEEN Normal NONE SEEN [facility] Comment on above: Performed By: #### U KJ 24 #### [facility] [address] [place] [address] Dr. Ramses Dumas RBC 20-50 Abnormal 0-2 [facility] Comment on above: Performed By: #### U KJ 24 #### [facility] [address] [place] [address] Dr. Ramses Dumas WBC 5-10 Abnormal NONE SEEN [facility] Comment on above: Performed By: #### U KJ 24 #### [facility] [address] [place] [address] Dr. Ramses Dumas CULTURE BLOODon 08-25-2022 Microscopic [...] F Tetracycline >=16 R F Normal [facility] Comment on above: Performed By: #### B LDCX2 #### [facility] [address] [place] [address] Dr. Ramses Dumas Microscopic examination of blood, [...] F Tetracycline >=16 R F Normal [facility] Comment on above: Performed By: #### C BC #### [facility] [address] [place] [address] Dr. Ramses Dumas CBC AUTO DIFFon 08-24-2022 BASO # 0.0 103/ul Normal 0.0-0.1 [facility] [place] Comment on above: Performed By: #### C BC #### [facility] [address] [place] [address] Dr. Ramses Dumas Basophils/100 WBC (Bld) 0.1 % Critically low 0.2-2.0 [facility] [place] Comment on above: Performed By: #### C BC #### [facility] [address] [place] [address] Dr. Ramses Dumas EO # 0.0 103/ul Normal 0.0-0.7 [facility] [place] Comment on above: Performed By: #### C BC #### [facility] [address] [place] [address] Dr. Ramses Dumas Eosinophils/100 WBC (Bld) 0.0 % Critically low 0.9-7.0 [facility] Comment on above: Performed By: #### C BC #### [facility] [address] [place] [address] Dr. Ramses Dumas Erythrocyte distribution width (RBC) [Ratio] 13.5 % Normal 11.0-15.0 [facility] [place] Comment on above: Performed By: #### C BC #### [facility] [address] [place] [address] Dr. Ramses Dumas Hematocrit (Bld) [Volume fraction] 33.0 % Critically low 36.0-48.0 [facility] [place] Comment on above: Performed By: #### C BC #### [facility] [address] [place] [address] Dr. Ramses Dumas Hemoglobin (Bld) [Mass/Vol] 10.7 g/dL Critically low 12.0-16.0 [facility] Comment on above: Performed By: #### C BC #### [facility] [address] [place] [address] Dr. Ramses Dumas IG # 0.04 10e3/ul Critically high 0.00-0.03 [facility] Comment on above: Performed By: #### C BC #### [facility] [address] [place] [address] Dr. Ramses Dumas IG % 0.4 % Normal 0.0-0.5 [facility] [place] Comment on above: Performed By: #### C BC #### [facility] [address] [place] [address] Dr. Ramses Dumas LYMPH # 0.8 103/ul Critically low 1.2-3.8 [facility] Comment on above: Performed By: #### C BC #### [facility] [address] [place] [address] Dr. Ramses Dumas Lymphocytes/100 WBC (Bld) 7.9 % Critically low 20.5-60.0 [facility] [place] Comment on above: Performed By: #### C BC #### [facility] [address] [place] [address] Dr. Ramses Dumas MANUAL DIFF REQ NO Normal [facility] Comment on above: Performed By: #### C BC #### [facility] [address] [place] [address] Dr. Ramses Dumas MCH (RBC) [Entitic mass] 26.5 pg Critically low 26.7-34.0 [facility] Comment on above: Performed By: #### C BC #### [facility] [address] [place] [address] Dr. Ramses Dumas MCHC (RBC) [Mass/Vol] 32.4 g/dL Normal 29.9-35.2 [facility] [place] Comment on above: Performed By: #### C BC #### [facility] [address] [address] [address] Ramses Dumas MCV (RBC) [Entitic vol] 81.7 fL Normal 81.0-99.0 [facility] [place] Comment on above: Performed By: #### C BC #### [facility] [address] [address] [address] Ramses Dumas MONO # 0.6 103/ul Normal 0.3-0.8 [facility] Comment on above: Performed By: #### C BC #### [facility] [address] [address] [address] Ramses Dumas Monocytes/100 WBC (Bld) 6.3 % Normal 1.7-12.0 [facility] Comment on above: Performed By: #### C BC #### [facility] [address] [place] [address] Dr. Ramses Dumas NEUT # 8.6 103/ul Critically high 1.4-6.5 [facility] Comment on above: Performed By: #### C BC #### [facility] [address] [place] [address] Dr. Ramses Dumas Neutrophils/100 WBC (Bld) 85.3 % Critically high 43.0-75.0 [facility] Comment on above: Performed By: #### C BC #### [facility] [address] [place] [address] Dr. Ramses Dumas Platelet mean volume (Bld) [Entitic vol] 9.1 fL Critically low 9.5-13.5 [facility] Comment on above: Performed By: #### C BC #### [facility] [address] [place] [address] Dr. Ramses Dumas PLT 248 103/ul Normal 150-450 [facility] Comment on above: Performed By: #### C BC #### [facility] [address] [place] [address] Dr. Ramses Dumas RBC 4.04 106/ul Critically low 4.20-5.40 [facility] Comment on above: Performed By: #### C BC #### [facility] [address] [place] [address] Dr. Ramses Dumas WBC 10.1 103/ul Normal 4.0-11.0 [facility] [place] Comment on above: Performed By: #### C BC #### [facility] [address] [place] [address] Dr. Ramses Dumas CULTURE URINEon 08-24-2022 CULTURE [...] S F Tetracycline >=16 R F Normal [facility] [place] Comment on above: Performed By: #### U RCX #### [facility] [address] [place] [address] Dr. Ramses Dumas PROF 14(COMP METB)on 022 Albumin [Mass/Vol] 2.4 g/dL Critically low 3.4-5.0 [facility] Comment on above: Performed By: #### C VDTBH #### [facility] [address] [place] [address] Dr. Ramses Dumas Albumin/Globulin [Mass ratio] 0.7 {ratio} Normal [facility] Comment on above: Performed By: #### C VDTBH #### [facility] [address] [place] [address] Dr. Ramses Dumas ALP [Catalytic activity/Vol] 95 U/L Normal 46-116 [facility] Comment on above: Performed By: #### C VDTBH #### [facility] [address] [place] [address] Dr. Ramses Dumas ALT [Catalytic activity/Vol] 327 U/L Critically high 14-59 [facility] Comment on above: Performed By: #### C VDTBH #### [facility] [address] [address] [address] Ramses Dumas Anion gap [Moles/Vol] 8.7 mmol/L Normal [facility] Comment on above: Performed By: #### C VDTBH #### [facility] [address] [address] [address] Ramses Dumas AST [Catalytic activity/Vol] 165 U/L Critically high 15-37 [facility] Comment on above: Performed By: #### C VDTBH #### [facility] [address] [address] [address] Ramses Dumas Bilirubin [Mass/Vol] 0.4 mg/dL Normal 0.2-1.0 [facility] Comment on above: Performed By: #### C VDTBH #### [facility] [address] [place] [address] Dr. Ramses Dumas Calcium [Mass/Vol] 8.0 mg/dL Critically low 8.5-10.1 [facility] Comment on above: Performed By: #### C VDTBH #### [facility] [address] [address] [address] Ramses Dumas Chloride [Moles/Vol] 108 mmol/L Critically high 98-107 [facility] Comment on above: Performed By: #### C VDTBH #### [facility] [address] [place] [address] Dr. Ramses Dumas CO2 [Moles/Vol] 25.3 mmol/L Normal 21.0-32.0 [facility] Comment on above: Performed By: #### C VDTBH #### [facility] [address] [address] [address] Ramses Dumas Creatinine [Mass/Vol] 0.70 mg/dL Normal 0.55-1.02 [facility] [place] Comment on above: Performed By: #### C VDTBH #### [facility] [address] [address] [address] Ramses Dumas EGFR-AF [facility] >60 Normal >=60 [facility] Comment on above: Performed By: #### C VDTBH #### [facility] [address] [address] [address] Ramses Dumas EGFR-NON AF [facility] >60 Normal >=60 [facility] Comment on above: Performed By: #### C VDTBH #### [facility] [address] [address] [address] Ramses Dumas Globulin (S) [Mass/Vol] 3.6 g/dL Normal [facility] Comment on above: Performed By: #### C VDTBH #### [facility] [address] [place] [address] Dr. Ramses Dumas Glucose [Mass/Vol] 160 mg/dL Critically high 74-106 T [facility] Comment on above: Performed By: #### C VDTBH #### [facility] [address] [place] [address] Dr. Ramses Dumas Potassium [Moles/Vol] 4.0 mmol/L Normal 3.5-5.1 [facility] [place] Comment on above: Performed By: #### C VDTBH #### [facility] [address] [place] [address] Dr. Ramses Dumas Protein [Mass/Vol] 6.0 g/dL Critically low 6.4-8.2 [facility] Comment on above: Performed By: #### C VDTBH #### [facility] [address] [place] [address] Dr. Ramses Dumas Sodium [Moles/Vol] 138 mmol/L Normal 136-145 [facility] Comment on above: Performed By: #### C VDTBH #### [facility] [address] [place] [address] Dr. Ramses Dumas Urea nitrogen [Mass/Vol] 6.0 mg/dL Critically low 7.0-18.0 [facility] Comment on above: Performed By: #### C VDTBH #### [facility] [address] [place] [address] Dr. Ramses Dumas Urea nitrogen/Creatinine [Mass ratio] 8.6 mg/mg Normal [facility] [place] Comment on above: Performed By: #### C VDTBH #### [facility] [address] [place] [address] Dr. Ramses Dumas CBC AUTO DIFFon 08-23-2022 BASO # 0.0 103/ul Normal 0.0-0.1 [facility] [place] Comment on above: Performed By: #### U RCX #### [facility] [address] [place] [address] Dr. Ramses Dumas Basophils/100 WBC (Bld) 0.2 % Normal 0.2-2.0 [facility] [place] Comment on above: Performed By: #### U RCX #### [facility] [address] [place] [address] Dr. Ramses Dumas EO # 0.0 103/ul Normal 0.0-0.7 [facility] [place] Comment on above: Performed By: #### U RCX #### [facility] [address] [place] [address] Dr. Ramses Dumas Eosinophils/100 WBC (Bld) 0.1 % Critically low 0.9-7.0 [facility] [place] Comment on above: Performed By: #### U RCX #### [facility] [address] [place] [address] Dr. Ramses Dumas Erythrocyte distribution width (RBC) [Ratio] 13.4 % Normal 11.0-15.0 [facility] [place] Comment on above: Performed By: #### U RCX #### [facility] [address] [place] [address] Dr. Ramses Dumas Hematocrit (Bld) [Volume fraction] 34.1 % Critically low 36.0-48.0 [facility] [place] Comment on above: Performed By: #### U RCX #### [facility] [address] [place] [address] Dr. Ramses Dumas Hemoglobin (Bld) [Mass/Vol] 10.9 g/dL Critically low 12.0-16.0 [facility] [place] Comment on above: Performed By: #### U RCX #### [facility] [address] [place] [address] Dr. Ramses Dumas IG # 0.02 10e3/ul Normal 0.00-0.03 [facility] Comment on above: Performed By: #### U RCX #### [facility] [address] [address] [address] Ramses Dumas IG % 0.2 % Normal 0.0-0.5 [facility] [place] Comment on above: Performed By: #### U RCX #### [facility] [address] [address] [address] Ramses Dumas LYMPH # 0.7 103/ul Critically low 1.2-3.8 [facility] Comment on above: Performed By: #### U RCX #### [facility] [address] [address] [address] Ramses Dumas Lymphocytes/100 WBC (Bld) 6.9 % Critically low 20.5-60.0 [facility] Comment on above: Performed By: #### U RCX #### [facility] [address] [address] [address] Ramses Dumas MANUAL DIFF REQ NO Normal [facility] Comment on above: Performed By: #### U RCX #### [facility] [address] [address] [address] Ramses Dumas MCH (RBC) [Entitic mass] 26.1 pg Critically low 26.7-34.0 [facility] Comment on above: Performed By: #### U RCX #### [facility] [address] [address] [address] Ramses Dumas MCHC (RBC) [Mass/Vol] 32.0 g/dL Normal 29.9-35.2 [facility] Comment on above: Performed By: #### U RCX #### [facility] [address] [address] [address] Ramses Dumas MCV (RBC) [Entitic vol] 81.8 fL Normal 81.0-99.0 [facility] Comment on above: Performed By: #### U RCX #### [facility] [address] [address] [address] Ramses Dumas MONO # 0.6 103/ul Normal 0.3-0.8 [facility] Comment on above: Performed By: #### U RCX #### [facility] [address] [address] [address] Ramses Dumas Monocytes/100 WBC (Bld) 5.9 % Normal 1.7-12.0 [facility] Comment on above: Performed By: #### U RCX #### [facility] [address] [address] [address] Ramses Dumas NEUT # 8.2 103/ul Critically high 1.4-6.5 [facility] Comment on above: Performed By: #### U RCX #### [facility] [address] [address] [address] Ramses Dumas Neutrophils/100 WBC (Bld) 86.7 % Critically high 43.0-75.0 [facility] Comment on above: Performed By: #### U RCX #### [facility] [address] [address] [address] Ramses Dumas Platelet mean volume (Bld) [Entitic vol] 9.4 fL Critically low 9.5-13.5 [facility] Comment on above: Performed By: #### U RCX #### [facility] [address] [address] [address] Ramses Dumas PLT 235 103/ul Normal 150-450 [facility] Comment on above: Performed By: #### U RCX #### [facility] [address] [address] [address] Ramses Dumas RBC 4.17 106/ul Critically low 4.20-5.40 [facility] Comment on above: Performed By: #### U RCX #### [facility] [address] [address] [address] Ramses Dumas WBC 9.5 103/ul Normal 4.0-11.0 [facility] Comment on above: Performed By: #### U RCX #### [facility] [address] [address] [address] Ramses Dumas PROF 14(COMP METB)on 022 Albumin [Mass/Vol] 2.6 g/dL Critically low 3.4-5.0 [facility] Comment on above: Performed By: #### U KJ 24 #### [facility] [address] [address] [address] Ramses Dumas Albumin/Globulin [Mass ratio] 0.8 {ratio} Normal [facility] Comment on above: Performed By: #### U KJ 24 #### [facility] [address] [address] [address] Ramses Dumas ALP [Catalytic activity/Vol] 82 U/L Normal 46-116 [facility] Comment on above: Performed By: #### U KJ 24 #### [facility] [address] [address] [address] Ramses Dumas ALT [Catalytic activity/Vol] 257 U/L Critically high 14-59 [facility] Comment on above: Performed By: #### U KJ 24 #### [facility] [address] [address] [address] Ramses Dumas Anion gap [Moles/Vol] 10.3 mmol/L Normal [facility] Comment on above: Performed By: #### U KJ 24 #### [facility] [address] [address] [address] Ramses Dumas AST [Catalytic activity/Vol] 196 U/L Critically high 15-37 [facility] Comment on above: Performed By: #### U KJ 24 #### [facility] [address] [address] [address] Ramses Dumas Bilirubin [Mass/Vol] 0.5 mg/dL Normal 0.2-1.0 [facility] Comment on above: Performed By: #### U KJ 24 #### [facility] [address] [address] [address] Ramses Dumas Calcium [Mass/Vol] 7.8 mg/dL Critically low 8.5-10.1 [facility] Comment on above: Performed By: #### U KJ 24 #### [facility] [address] [address] [address] Ramses Dumas Chloride [Moles/Vol] 104 mmol/L Normal 98-107 [facility] Comment on above: Performed By: #### U KJ 24 #### [facility] [address] [address] [address] Ramses Dumas CO2 [Moles/Vol] 24.4 mmol/L Normal 21.0-32.0 [facility] Comment on above: Performed By: #### U KJ 24 #### [facility] [address] [address] [address] Ramses Dumas Creatinine [Mass/Vol] 1.09 mg/dL Critically high 0.55-1.02 [facility] Comment on above: Performed By: #### U KJ 24 #### [facility] [address] [address] [address] Ramses Dumas EGFR-AF [facility] LUCIAN >60 Normal >=60 [facility] Comment on above: Performed By: #### U KJ 24 #### [facility] [address] [address] [address] Ramses Dumas EGFR-NON AF [facility] LUCIAN 59 mL/min/1.73m2 Critically low >=60 [facility] Comment on above: Performed By: #### U KJ 24 #### [facility] [address] [address] [address] Ramses Dumas Globulin (S) [Mass/Vol] 3.3 g/dL Normal [facility] Comment on above: Performed By: #### U KJ 24 #### [facility] [address] [address] [address] Ramses Dumas Glucose [Mass/Vol] 143 mg/dL Critically high 74-106 [facility] Comment on above: Performed By: #### U KJ 24 #### [facility] [address] [address] [address] Ramses Dumas Potassium [Moles/Vol] 3.7 mmol/L Normal 3.5-5.1 [facility] [place] Comment on above: Performed By: #### U KJ 24 #### [facility] [address] [address] [address] Ramses Dumas Protein [Mass/Vol] 5.9 g/dL Critically low 6.4-8.2 Th [facility] Comment on above: Performed By: #### U KJ 24 #### [facility] [address] [place] [address] Dr. Ramses Dumas Sodium [Moles/Vol] 135 mmol/L Critically low 136-145 Th [facility] Comment on above: Performed By: #### U KJ 24 #### [facility] [address] [place] [address] Dr. Ramses Dumas Urea nitrogen [Mass/Vol] 10.0 mg/dL Normal 7.0-18.0 [facility] Comment on above: Performed By: #### U KJ 24 #### [facility] [address] [place] [address] Dr. Ramses Dumas Urea nitrogen/Creatinine [Mass ratio] 9.2 mg/mg Normal [facility] Comment on above: Performed By: #### U KJ 24 #### [facility] [address] [place] [address] Dr. Ramses Dumas BLOOD CULTURE ID PANELon A. baumannii Not detected Normal NOT DETECTED The [facility] Comment on above: Performed By: #### C VDTBH #### [facility] [address] [place] [address] Dr. Ramses Dumas Bacteriodes fragilis Not detected Normal NOT DETECTED [facility] Comment on above: Performed By: #### C VDTBH #### [facility] [address] [place] [address] Dr. Ramses SHEPPARDD CONTROLS PASSED Normal The [facility] Comment on above: Performed By: #### C VDTBH #### [facility] [address] [place] [address] Dr. Ramses Dumas BCIDBTHD BLOOD CULTURE BOTTLE INFORMATION Normal [facility] Comment on above: Performed By: #### C VDTBH #### [facility] [address] [place] [address] Dr. Ramses Dumas BCIDHD1 ANTIMICROBIAL RESISTANCE GENES Normal [facility] Comment on above: Performed By: #### C VDTBH #### [facility] [address] [place] [address] Dr. Ramses SHEPPARDDHD2 SEE BELOW [facility] Comment on above: Result Comment: Note : Antimicrobial resitance can occur via multiple mechanisms. A Not Detected result for the [employer] antomicrobial resistance gene assays does not indicate antimicrobial susceptibility. Subculturing is required for species identification and susceptibility testing of isolates. Performed By: #### C VDTBH #### [facility] [address] [place] [address] Dr. Ramses Dumas BCIDHD3 Positive Normal [facility] Comment on above: Performed By: #### C VDTBH #### [facility] [address] [place] [address] Dr. Ramses Dumas BCIDHD4 Negative Normal [facility] Comment on above: Performed By: #### C VDTBH #### [facility] [address] [place] [address] Dr. Ramses Dumas BCIDHD5 YEAST Normal [facility] Comment on above: Performed By: #### C VDTBH #### [facility] [address] [place] [address] Dr. Ramses Dumas Bottle Set: Set 1 [facility] Comment on above: Performed By: #### C VDTBH #### [facility] [address] [place] [address] Dr. Ramses Dumas Bottle: Pediatric Normal [facility] Comment on above: Performed By: #### C VDTBH #### [facility] [address] [place] [address] Dr. Ramses Dumas C. neoformans/gattii Not detected Normal NOT DETECTED [facility] Comment on above: Performed By: #### C VDTBH #### [facility] [address] [place] [address] Dr. Ramses Dumas Kim albicans Not detected Normal NOT DETECTED [facility] Comment on above: Performed By: #### C VDTBH #### [facility] [address] [place] [address] Dr. Ramses Dumas Kim auris Not detected Normal NOT DETECTED The [facility] Comment on above: Performed By: #### C VDTBH #### [facility] [address] [place] [address] Dr. Ramses Dumas Kim glabrata Not detected Normal NOT DETECTED [facility] Comment on above: Performed By: #### C VDTBH #### [facility] [address] [place] [address] Dr. Ramses Dumas Kim Krusei Not detected Normal NOT DETECTED The [facility] Comment on above: Performed By: #### C VDTBH #### [facility] [address] [place] [address] Dr. Ramses Dumas Kim Parapsilosis Not detected Normal NOT DETECTED [facility] Comment on above: Performed By: #### C VDTBH #### [facility] [address] [place] [address] Dr. Ramses Dumas Kim Tropicalis Not detected Normal NOT DETECTED [facility] Comment on above: Performed By: #### C VDTBH #### [facility] [address] [place] [address] Dr. Ramses Dumas CTX-M Resistant Gene Not Applicable Normal NOT DETECTE [facility] Comment on above: Performed By: #### C VDTBH #### [facility] [address] [place] [address] Dr. Ramses Dumas E. Cloacae complex Not detected Normal NOT DETECTED [facility] Comment on above: Performed By: #### C VDTBH #### [facility] [address] [place] [address] Dr. Ramses Dumas E. faecalis Not detected Normal NOT DETECTED The [facility] Comment on above: Performed By: #### C VDTBH #### [facility] [address] [place] [address] Dr. Ramses Dumas E. faecium Not detected Normal NOT DETECTED [facility] Comment on above: Performed By: #### C VDTBH #### [facility] [address] [place] [address] Dr. Ramses Dumas Enterobacteriaceae Not detected Normal NOT DETECTED [facility] Comment on above: Performed By: #### C VDTBH #### [facility] [address] [place] [address] Dr. Ramses Dumas Escherichia coli Not detected Normal NOT DETECTED [facility] Comment on above: Performed By: #### C VDTBH #### [facility] [address] [place] [address] Dr. Ramses Dumas H. influenzae Not detected Normal NOT DETECTED [facility] Comment on above: Performed By: #### C VDTBH #### [facility] [address] [place] [address] Dr. Ramses Dumas IMP Resistant Gene Not Applicable Normal NOT DETECTED [facility] Comment on above: Performed By: #### C VDTBH #### [facility] [address] [place] [address] Dr. Ramses Dumas K. oxytoca Not detected Normal NOT DETECTED [facility] Comment on above: Performed By: #### C VDTBH #### [facility] [address] [place] [address] Dr. Ramses Dumas K. pneumoniae Not detected Normal NOT DETECTED [facility] Comment on above: Performed By: #### C VDTBH #### [facility] [address] [place] [address] Dr. Ramses Dumas Klebsiella aerogenes Not detected Normal NOT DETECTED [facility] Comment on above: Performed By: #### C VDTBH #### [facility] [address] [place] [address] Dr. Ramses Dumas KPC Resistant Gene Not detected Normal NOT DETECTED [facility] Comment on above: Performed By: #### C VDTBH #### [facility] [address] [place] [address] Dr. Ramses Dumas List. monocytogenes Not detected Normal NOT DETECTED [facility] Comment on above: Performed By: #### C VDTBH #### [facility] [address] [place] [address] Dr. Ramses Dumas Mcr-1 Resistant Gene Not Applicable Normal NOT DETECTE D [facility] Comment on above: Performed By: #### C VDTBH #### [facility] [address] [place] [address] Dr. Ramses Dumas mecA/C Not Applicable Normal NOT DETECTED [facility] Comment on above: Performed By: #### C VDTBH #### [facility] [address] [place] [address] Dr. Ramses Dumas mecA/C MREJ Not Applicable Normal NOT DETECTED [facility] Comment on above: Performed By: #### C VDTBH #### [facility] [address] [place] [address] Dr. Ramses Dumas N. meningitidis Not detected Normal NOT DETECTED [facility] Comment on above: Performed By: #### C VDTBH #### [facility] [address] [place] [address] Dr. Ramses Dumas NDM Resistant Gene Not Applicable Normal NOT DETECTED [facility] Comment on above: Performed By: #### C VDTBH #### [facility] [address] [place] [address] Dr. Ramses Dumas Oxa-48-like Not Applicable Normal NOT DETECTED [facility] Comment on above: Performed By: #### C VDTBH #### [facility] [address] [place] [address] Dr. Ramses Dumas Proteus Not detected Normal NOT DETECTED [facility] Comment on above: Performed By: #### C VDTBH #### [facility] [address] [place] [address] Dr. Ramses Dumas Pseud. aeruginosa Not detected Normal NOT DETECTED [facility] Comment on above: Performed By: #### C VDTBH #### [facility] [address] [place] [address] Dr. Ramses Dumas S. maltophilia Not detected Normal NOT DETECTED [facility] Comment on above: Performed By: #### C VDTBH #### [facility] [address] [place] [address] Dr. Ramses Dumas Salmonella Not detected Normal NOT DETECTED [facility] Comment on above: Performed By: #### C VDTBH #### [facility] [address] [place] [address] Dr. Ramses Dumas Seratia marcescens Not detected Normal NOT DETECTED [facility] Comment on above: Performed By: #### C VDTBH #### [facility] [address] [place] [address] Dr. Ramses Dumas Site: unknown/not given Normal [facility] Comment on above: Performed By: #### C VDTBH #### [facility] [address] [place] [address] Dr. Ramses Dumas Stapphillip. aureus Not detected Normal NOT DETECTED [facility] Comment on above: Performed By: #### C VDTBH #### [facility] [address] [place] [address] Dr. Ramses Dumas Staph. epidermidis Not detected Normal NOT DETECTED [facility] Comment on above: Performed By: #### C VDTBH #### [facility] [address] [place] [address] Dr. Ramses Dumas Stapphillip. lugdunensis Not detected Normal NOT DETECTED [facility] Comment on above: Performed By: #### C VDTBH #### [facility] [address] [place] [address] Dr. Ramses Dumas Staphylococcus Not detected Normal NOT DETECTED [facility] Comment on above: Performed By: #### C VDTBH #### [facility] [address] [place] [address] Dr. Ramses Dumas Strep. agalactiae Detected Critically abnormal NOT DETECTED [facility] Comment on above: Performed By: #### C VDTBH #### [facility] [address] [place] [address] Dr. Ramses Dumas Strep. pneumoniae Not detected Normal NOT DETECTED [facility] Comment on above: Performed By: #### C VDTBH #### [facility] [address] [place] [address] Dr. Ramses Dumas Strep. pyogenes Not detected Normal NOT DETECTED [facility] Comment on above: Performed By: #### C VDTBH #### [facility] [address] [place] [address] Dr. Ramses Dumas Streptococcus Detected Critically abnormal NOT DETECTED [facility] Comment on above: Performed By: #### C VDTBH #### [facility] [address] [place] [address] Dr. Ramses Dumas Efrain/Ross Resist. Gene Not detected Normal NOT DETECTED [facility] Comment on above: Performed By: #### C VDTBH #### [facility] [address] [place] [address] Dr. Ramses Dumas VIM Resistant Gene Not Applicable Normal NOT DETECTED [facility] Comment on above: Performed By: #### C VDTBH #### [facility] [address] [place] [address] Dr. Ramses Dumas CBC AUTO DIFFon 08-22-2022 BASO # 0.1 103/ul Normal 0.0-0.1 [facility] Comment on above: Performed By: #### U KJ 24 #### [facility] [address] [place] [address] Dr. Ramses Dumas Basophils/100 WBC (Bld) 0.7 % Normal 0.2-2.0 [facility] Comment on above: Performed By: #### U KJ 24 #### [facility] [address] [place] [address] Dr. Ramses Dumas EO # 0.1 103/ul Normal 0.0-0.7 [facility] Comment on above: Performed By: #### U KJ 24 #### [facility] [address] [place] [address] Dr. Ramses Dumas Eosinophils/100 WBC (Bld) 1.7 % Normal 0.9-7.0 [facility] Comment on above: Performed By: #### U KJ 24 #### [facility] [address] [place] [address] Dr. Ramses Dumas Erythrocyte distribution width (RBC) [Ratio] 13.2 % Normal 11.0-15.0 [facility] Comment on above: Performed By: #### U KJ 24 #### [facility] [address] [place] [address] Dr. Ramses Dumas Hematocrit (Bld) [Volume fraction] 39.8 % Normal 36.0-48.0 [facility] Comment on above: Performed By: #### U KJ 24 #### [facility] [address] [place] [address] Dr. Ramses Dumas Hemoglobin (Bld) [Mass/Vol] 12.9 g/dL Normal 12.0-16.0 [facility] Comment on above: Performed By: #### U KJ 24 #### [facility] [address] [place] [address] Dr. Ramses Dumas IG # 0.02 10e3/ul Normal 0.00-0.03 [facility] Comment on above: Performed By: #### U KJ 24 #### [facility] [address] [place] [address] Dr. Ramses Dumas IG % 0.2 % Normal 0.0-0.5 [facility] Comment on above: Performed By: #### U KJ 24 #### [facility] [address] [place] [address] Dr. Ramses Dumas LYMPH # 3.2 103/ul Normal 1.2-3.8 [facility] Comment on above: Performed By: #### U KJ 24 #### [facility] [address] [place] [address] Dr. Ramses Dumas Lymphocytes/100 WBC (Bld) 40.0 % Normal 20.5-60.0 [facility] Comment on above: Performed By: #### U KJ 24 #### [facility] [address] [place] [address] Dr. Ramses Dumas MANUAL DIFF REQ NO Normal [facility] Comment on above: Performed By: #### U KJ 24 #### [facility] [address] [address] [address] Ramses Dumas MCH (RBC) [Entitic mass] 26.6 pg Critically low 26.7-34.0 [facility] Comment on above: Performed By: #### U KJ 24 #### [facility] [address] [place] [address] Dr. Ramses Dumas MCHC (RBC) [Mass/Vol] 32.4 g/dL Normal 29.9-35.2 [facility] Comment on above: Performed By: #### U KJ 24 #### [facility] [address] [place] [address] Dr. Ramses Dumas MCV (RBC) [Entitic vol] 82.1 fL Normal 81.0-99.0 [facility] Comment on above: Performed By: #### U KJ 24 #### [facility] [address] [place] [address] Dr. Ramses Dumas MONO # 0.6 103/ul Normal 0.3-0.8 [facility] Comment on above: Performed By: #### U KJ 24 #### [facility] [address] [place] [address] Dr. Ramses Dumas Monocytes/100 WBC (Bld) 7.5 % Normal 1.7-12.0 [facility] Comment on above: Performed By: #### U KJ 24 #### [facility] [address] [place] [address] Dr. Ramses Dumas NEUT # 4.0 103/ul Normal 1.4-6.5 [facility] Comment on above: Performed By: #### U KJ 24 #### [facility] [address] [place] [address] Dr. Ramses Dumas Neutrophils/100 WBC (Bld) 49.9 % Normal 43.0-75.0 [facility] Comment on above: Performed By: #### U KJ 24 #### [facility] [address] [place] [address] Dr. Ramses Dumas Platelet mean volume (Bld) [Entitic vol] 9.3 fL Critically low 9.5-13.5 [facility] Comment on above: Performed By: #### U KJ 24 #### [facility] [address] [place] [address] Dr. Ramses Dumas PLT 354 103/ul Normal 150-450 [facility] Comment on above: Performed By: #### U KJ 24 #### [facility] [address] [place] [address] Dr. Ramses Dumas RBC 4.85 106/ul Normal 4.20-5.40 [facility] Comment on above: Performed By: #### U KJ 24 #### [facility] [address] [place] [address] Dr. Ramses Dumas WBC 8.1 103/ul Normal 4.0-11.0 [facility] Comment on above: Performed By: #### U KJ 24 #### [facility] [id number] Ramses Dumas CT ABD/PELVIS WO CONon [...] KESHIA IRIZARRY Date: 2022-08-22 07:04 Normal [facility] Covid-19 PCR (CVDTBH)on SARS-CoV-2 (COVID-19) RNA FRANCESCA+probe Ql (Unsp spec) Not detected Normal NOT DETECTED [facility] Comment on above: Result Comment: When [...] for this test is supported by the [employer] of [employer] and Human Service's declaration that [...] used). Performed By: #### C MP #### [facility] [address] [place] [address] Dr. Ramses Dumas ER URINE PROFILEon 2 Bilirubin Ql (U) Negative Normal NEGATIVE [facility] Comment on above: Performed By: #### U RCX #### [facility] [address] [place] [address] Dr. Ramses Dumas Clarity (U) CLEAR Normal CLEAR [facility] Comment on above: Performed By: #### U RCX #### [facility] [address] [place] [address] Dr. Ramses Dumas Color (U) LT. YELLOW Normal YELLOW [facility] Comment on above: Performed By: #### U RCX #### [facility] [address] [place] [address] Dr. Ramses VALLECILLOD A micrscopic examination will be performed if indicated. Normal [facility] Comment on above: Performed By: #### U RCX #### [facility] [address] [place] [address] Dr. Ramses Dumas Glucose Ql (U) Negative Normal NEGATIVE [facility] Comment on above: Performed By: #### U RCX #### [facility] [address] [place] [address] Dr. Ramses Dumas Hemoglobin Ql (U) SMALL Abnormal NEGATIVE [facility] Comment on above: Performed By: #### U RCX #### [facility] [address] [place] [address] Dr. Ramses Dumas Ketones Ql (U) Negative Normal NEGATIVE [facility] Comment on above: Performed By: #### U RCX #### [facility] [address] [address] [address] Ramses Dumas LEUKOCYTES SMALL Abnormal NEGATIVE [facility] Comment on above: Performed By: #### U RCX #### [facility] [address] [place] [address] Dr. Ramses Dumas Nitrite Ql (U) Negative Normal NEGATIVE [facility] Comment on above: Performed By: #### U RCX #### [facility] [address] [place] [address] Dr. Ramses Dumas pH (U) 7.0 [pH] Normal 5-9 [facility] Comment on above: Performed By: #### U RCX #### [facility] [address] [place] [address] Dr. Ramses Dumas Protein (U) [Mass/Vol] 30 mg/dL Abnormal NEGAT CHRIS/ TRACE [facility] Comment on above: Performed By: #### U RCX #### [facility] [address] [place] [address] Dr. Ramses Dumas SPEC GRAVITY 1.020 Normal 1.005-<=1.02 5 [facility] Comment on above: Performed By: #### U RCX #### [facility] [address] [place] [address] Dr. Ramses Dumas UR MICRO IND INDICATED Normal [facility] Comment on above: Performed By: #### U RCX #### [facility] [address] [place] [address] Dr. Ramses Dumas Urobilinogen Qn (U) 0.2 {Lucero'U}/dL Normal 0.2 - 1. 0 [facility] Comment on above: Performed By: #### U RCX #### [facility] [address] [place] [address] Dr. Ramses Dumas LACTATE/LACTIC ACIDon 2021 Lactate [Moles/Vol] 2.3 mmol/L Critically high 0.4-1.9 [facility] Comment on above: Performed By: #### U RCX #### [facility] [address] [address] [address] Ramses Dumas URon 08-22-2022 , QUAL Negative Normal NEGATIVE [facility] Comment on above: Performed By: #### U RCX #### [facility] [address] [address] [address] Ramses Dumas PROF 14(COMP METB)on 022 Albumin [Mass/Vol] 3.5 g/dL Normal 3.4-5.0 [facility] Comment on above: Performed By: #### U RCX #### [facility] [address] [address] [address] Ramses Dumas Albumin/Globulin [Mass ratio] 0.9 {ratio} Normal [facility] Comment on above: Performed By: #### U RCX #### [facility] [address] [place] [address] Dr. Ramses Dumas ALP [Catalytic activity/Vol] 92 U/L Normal 46-116 [facility] Comment on above: Performed By: #### U RCX #### [facility] [address] [address] [address] Ramses Dumas ALT [Catalytic activity/Vol] 139 U/L Critically high 14-59 [facility] Comment on above: Performed By: #### U RCX #### [facility] [address] [address] [address] Ramses Dumas Anion gap [Moles/Vol] 10.2 mmol/L Normal [facility] Comment on above: Performed By: #### U RCX #### [facility] [address] [address] [address] Ramses Dumas AST [Catalytic activity/Vol] 112 U/L Critically high 15-37 [facility] Comment on above: Performed By: #### U RCX #### [facility] [address] [address] [address] Ramses Dumas Bilirubin [Mass/Vol] 0.2 mg/dL Normal 0.2-1.0 [facility] Comment on above: Performed By: #### U RCX #### [facility] [address] [address] [address] Ramses Dumas Calcium [Mass/Vol] 8.8 mg/dL Normal 8.5-10.1 [facility] Comment on above: Performed By: #### U RCX #### [facility] [address] [address] [address] Ramses Dumas Chloride [Moles/Vol] 105 mmol/L Normal 98-107 [facility] Comment on above: Performed By: #### U RCX #### [facility] [address] [address] [address] Ramses Dumas CO2 [Moles/Vol] 26.3 mmol/L Normal 21.0-32.0 [facility] Comment on above: Performed By: #### U RCX #### [facility] [address] [place] [address] Dr. Ramses Dumas Creatinine [Mass/Vol] 0.95 mg/dL Normal 0.55-1.02 [facility] Comment on above: Performed By: #### U RCX #### [facility] [address] [place] [address] Dr. Ramses Dumas EGFR-AF ST LUCIAN >60 Normal >=60 [facility] Comment on above: Performed By: #### U RCX #### [facility] [address] [place] [address] Dr. Ramses Dumas EGFR-NON AF [facility] LUCIAN >60 Normal >=60 [facility] Comment on above: Performed By: #### U RCX #### [facility] [address] [place] [address] Dr. Ramses Dumas Globulin (S) [Mass/Vol] 3.9 g/dL Normal [facility] Comment on above: Performed By: #### U RCX #### [facility] [address] [place] [address] Dr. Ramses Dumas Glucose [Mass/Vol] 137 mg/dL Critically high 74-106 T [facility] Comment on above: Performed By: #### U RCX #### [facility] [address] [place] [address] Dr. Ramses Dumas Potassium [Moles/Vol] 3.5 mmol/L Normal 3.5-5.1 [facility] Comment on above: Performed By: #### U RCX #### [facility] [address] [place] [address] Dr. Ramses Dumas Protein [Mass/Vol] 7.4 g/dL Normal 6.4-8.2 [facility] Comment on above: Performed By: #### U RCX #### [facility] [address] [place] [address] Dr. Ramses Dumas Sodium [Moles/Vol] 138 mmol/L Normal 136-145 [facility] Comment on above: Performed By: #### U RCX #### [facility] [address] [place] [address] Dr. Ramses Dumas Urea nitrogen [Mass/Vol] 11.0 mg/dL Normal 7.0-18.0 [facility] Comment on above: Performed By: #### U RCX #### [facility] [address] [place] [address] Dr. Ramses Dumas Urea nitrogen/Creatinine [Mass ratio] 11.6 mg/mg Normal [facility] Comment on above: Performed By: #### U RCX #### [facility] [address] [place] [address] Dr. Ramses Dumas URINE MICROSCOPIC ONLYon BACTERIA LARGE Abnormal NONE SEEN [facility] Comment on above: Performed By: #### U RCX #### [facility] [address] [place] [address] Dr. Ramses Dumas Bacteria identified Cx Nom (U) CX ALREADY ORDERED Normal [facility] Comment on above: Performed By: #### U RCX #### [facility] [address] [place] [address] Dr. Ramses Dumas CAST NONE SEEN Normal NONE SEEN [facility] Comment on above: Performed By: #### U RCX #### [facility] [address] [place] [address] Dr. Ramses Dumas Crystals LM Nom (Urine sed) NONE SEEN Normal NONE SEEN [facility] Comment on above: Performed By: #### U RCX #### [facility] [address] [address] [address] Ramses Dumas Epithelial cells LM Ql (Urine sed) MANY Abnormal NONE SEEN /RARE [facility] Comment on above: Performed By: #### U RCX #### [facility] [address] [place] [address] Dr. Ramses Dumas MUCOUS NONE SEEN Normal NONE SEEN [facility] Comment on above: Performed By: #### U RCX #### [facility] [address] [address] [address] Ramses Dumas RBC 5-10 Abnormal 0-2 [facility] Comment on above: Performed By: #### U RCX #### [facility] [address] [place] [address] Dr. Ramses Dumas WBC 50-75 Abnormal NONE SEEN [facility] Comment on above: Performed By: #### U RCX #### [facility] [address] [place] [address] Dr. Ramses Dumas CULTURE URINEon 08-15-2022 CULTURE [...] F Tetracycline >=16 R F Normal [facility] Comment on above: Performed By: #### U RCX #### [facility] [address] [place] [address] Dr. Ramses Dumas ACETAMINOPHENon 08-13-2022 Acetaminophen [Mass/Vol] ug/mL Critically low 10.0-30.0 [facility] Comment on above: Performed By: #### U RCX #### [facility] [address] [place] [address] Dr. Ramses Dumas CBC AUTO DIFFon 08-13-2022 BASO # 0.1 103/ul Normal 0.0-0.1 [facility] Comment on above: Performed By: #### C VDTBH #### [facility] [address] [place] [address] Dr. Ramses Dumas Basophils/100 WBC (Bld) 0.8 % Normal 0.2-2.0 [facility] Comment on above: Performed By: #### C VDTBH #### [facility] [address] [place] [address] Dr. Ramses Dumas EO # 0.1 103/ul Normal 0.0-0.7 [facility] Comment on above: Performed By: #### C VDTBH #### [facility] [address] [place] [address] Dr. Ramses Dumas Eosinophils/100 WBC (Bld) 1.6 % Normal 0.9-7.0 [facility] Comment on above: Performed By: #### C VDTBH #### [facility] [address] [place] [address] Dr. Ramses Dumas Erythrocyte distribution width (RBC) [Ratio] 13.3 % Normal 11.0-15.0 [facility] Comment on above: Performed By: #### C VDTBH #### [facility] [address] [place] [address] Dr. Ramses Dumas Hematocrit (Bld) [Volume fraction] 40.6 % Normal 36.0-48.0 [facility] Comment on above: Performed By: #### C VDTBH #### [facility] [address] [place] [address] Dr. Ramses Dumas Hemoglobin (Bld) [Mass/Vol] 13.2 g/dL Normal 12.0-16.0 [facility] Comment on above: Performed By: #### C VDTBH #### [facility] [address] [place] [address] Dr. Ramses Dumas IG # 0.01 10e3/ul Normal 0.00-0.03 [facility] Comment on above: Performed By: #### C VDTBH #### [facility] [address] [place] [address] Dr. Ramses Dumas IG % 0.2 % Normal 0.0-0.5 [facility] Comment on above: Performed By: #### C VDTBH #### [facility] [address] [place] [address] Dr. Ramses Dumas LYMPH # 2.4 103/ul Normal 1.2-3.8 [facility] Comment on above: Performed By: #### C VDTBH #### [facility] [address] [place] [address] Dr. Ramses Dumas Lymphocytes/100 WBC (Bld) 37.7 % Normal 20.5-60.0 [facility] Comment on above: Performed By: #### C VDTBH #### [facility] [address] [place] [address] Dr. Ramses Dumas MANUAL DIFF REQ NO Normal [facility] Comment on above: Performed By: #### C VDTBH #### [facility] [address] [place] [address] Dr. Ramses Dumas MCH (RBC) [Entitic mass] 26.7 pg Normal 26.7-34.0 [facility] Comment on above: Performed By: #### C VDTBH #### [facility] [address] [place] [address] Dr. Ramses Dumas MCHC (RBC) [Mass/Vol] 32.5 g/dL Normal 29.9-35.2 [facility] Comment on above: Performed By: #### C VDTBH #### [facility] [address] [place] [address] Dr. Ramses Dumas MCV (RBC) [Entitic vol] 82.0 fL Normal 81.0-99.0 [facility] Comment on above: Performed By: #### C VDTBH #### [facility] [address] [place] [address] Dr. Ramses Dumas MONO # 0.6 103/ul Normal 0.3-0.8 [facility] Comment on above: Performed By: #### C VDTBH #### [facility] [address] [place] [address] Dr. Ramses Dumas Monocytes/100 WBC (Bld) 8.6 % Normal 1.7-12.0 [facility] Comment on above: Performed By: #### C VDTBH #### [facility] [address] [place] [address] Dr. Ramses Dumas NEUT # 3.3 103/ul Normal 1.4-6.5 [facility] Comment on above: Performed By: #### C VDTBH #### [facility] [address] [place] [address] Dr. Ramses Dumas Neutrophils/100 WBC (Bld) 51.1 % Normal 43.0-75.0 [facility] Comment on above: Performed By: #### C VDTBH #### [facility] [address] [place] [address] Dr. Ramses Dumas Platelet mean volume (Bld) [Entitic vol] 8.7 fL Critically low 9.5-13.5 [facility] Comment on above: Performed By: #### C VDTBH #### [facility] [address] [place] [address] Dr. Ramses Dumas PLT 409 103/ul Normal 150-450 [facility] Comment on above: Performed By: #### C VDTBH #### [facility] [address] [place] [address] Dr. Ramses Dumas RBC 4.95 106/ul Normal 4.20-5.40 [facility] Comment on above: Performed By: #### C VDTBH #### [facility] [address] [place] [address] Dr. Ramses Dumas WBC 6.4 103/ul Normal 4.0-11.0 [facility] Comment on above: Performed By: #### C VDTBH #### [facility] [address] [place] [address] Dr. Ramses Dumas [facility]20 SARS-CoV-2 (COVID-19) RNA FRANCESCA+probe Ql (Unsp spec) Not detected Normal NOT DETECTED [facility] Comment on above: Result Comment: When [...] for this test is supported by the [employer] and Human Service's declaration that [...] used). Performed By: #### C VDTB #### [facility] [address] [place] [address] Dr. Ramses Dumas DRUG SCREEN RAPID (URINE)on 08-13-2022 AMP Negative Normal NEGATIVE [facility] Comment on above: Performed By: #### C BC #### [facility] [address] [place] [address] Dr. Ramses Dumas BAR Negative Normal NEGATIVE [facility] Comment on above: Performed By: #### C BC #### [facility] [address] [place] [address] Dr. Ramses Dumas BUP Negative Normal NEGATIVE [facility] Comment on above: Performed By: #### C BC #### [facility] [address] [place] [address] Dr. Ramses Dumas BZO Negative Normal NEGATIVE [facility] Comment on above: Performed By: #### C BC #### [facility] [address] [place] [address] Dr. Ramses Dumas ODILIA Negative Normal NEGATIVE [facility] Comment on above: Performed By: #### C BC #### [facility] [address] [place] [address] Dr. Ramses Dumas CUT-OFFS SEE BELOW Normal [facility] Comment on above: Result Comment: AMP (Amphetamine): 500ng/mL, BAR (Barbituates): 200 ng/mL, BZO (Benzodiazepines): 150 ng/mL, BUP (Buprenorphine): 10 ng/mL, ODILIA (Cocaine): 150 ng/mL, mAMP (Methamphetamine): 500 ng/mL, MTD (Methadone): 200 ng/mL, OPI (Opiates): 100 ng/mL, OXY (Oxycodone): 100 ng/mL, PCP (Phencyclidine): 25 ng/mL, PPX (Propoxyphene): 300 ng/mL, THC (Cannabinoids): 50 ng/mL, TCA (Trycyclic Antidepressants): 300 ng/mL Performed By: #### C BC #### [facility] [address] [place] [address] Dr. Ramses Dumas DRUG CUT HEADER DRUG CLASS TEST SYST EM CUT-OFF CONCENTRATIONS ARE FOLLOWS: Normal [facility] Comment on above: Performed By: #### C BC #### [facility] [address] [place] [address] Dr. Ramses Dumas mAMP Negative Normal NEGATIVE [facility] Comment on above: Performed By: #### C BC #### [facility] [address] [place] [address] Dr. Ramses Dumas MTD Negative Normal NEGATIVE [facility] Comment on above: Performed By: #### C BC #### [facility] [address] [place] [address] Dr. Ramses Dumas OPI Negative Normal NEGATIVE [facility] Comment on above: Performed By: #### C BC #### [facility] [address] [place] [address] Dr. Ramses Dumas OXY Negative Normal NEGATIVE [facility] Comment on above: Performed By: #### C BC #### [facility] [address] [place] [address] Dr. Ramses Dumas PCP Negative Normal NEGATIVE [facility] Comment on above: Performed By: #### C BC #### [facility] [address] [place] [address] Dr. Ramses Dumas PPX Negative Normal NEGATIVE [facility] Comment on above: Performed By: #### C BC #### [facility] [address] [place] [address] Dr. Ramses Dumas TCA Negative Normal NEGATIVE [facility] Comment on above: Performed By: #### C BC #### [facility] [address] [place] [address] Dr. Ramses Dumas THC Negative Normal NEGATIVE [facility] Comment on above: Performed By: #### C BC #### [facility] [address] [place] [address] Dr. Ramses Dumas ER URINE PROFILEon 2 Bilirubin Ql (U) Negative Normal NEGATIVE [facility] Comment on above: Performed By: #### C BC #### [facility] [address] [place] [address] Dr. Ramses Dumas Clarity (U) CLEAR Normal CLEAR [facility] Comment on above: Performed By: #### C BC #### [facility] [address] [place] [address] Dr. Ramses Dumas Color (U) LT. YELLOW Normal YELLOW [facility] Comment on above: Performed By: #### C BC #### [facility] [address] [place] [address] Dr. Ramses Dumas ERUAHD A micrscopic examination will be performed if indicated. Normal [facility] Comment on above: Performed By: #### C BC #### [facility] [address] [place] [address] Dr. Ramses Dumas Glucose Ql (U) Negative Normal NEGATIVE [facility] Comment on above: Performed By: #### C BC #### [facility] [address] [place] [address] Dr. Ramses Dumas Hemoglobin Ql (U) LARGE Abnormal NEGATIVE [facility] Comment on above: Performed By: #### C BC #### [facility] [address] [place] [address] Dr. Ramses Dumas Ketones Ql (U) Negative Normal NEGATIVE [facility] Comment on above: Performed By: #### C BC #### [facility] [address] [place] [address] Dr. Ramses Dumas LEUKOCYTES LARGE Abnormal NEGATIVE [facility] Comment on above: Performed By: #### C BC #### [facility] [address] [place] [address] Dr. Ramses Dumas Nitrite Ql (U) Positive Abnormal NEGATIVE [facility] Comment on above: Performed By: #### C BC #### [facility] [address] [place] [address] Dr. Ramses Dumas pH (U) 6.0 [pH] Normal 5-9 [facility] Comment on above: Performed By: #### C BC #### [facility] [address] [place] [address] Dr. Ramses Dumas Protein (U) [Mass/Vol] 30 mg/dL Abnormal NEGAT CHRIS/ TRACE [facility] Comment on above: Performed By: #### C BC #### [facility] [address] [place] [address] Dr. Ramses Dumas SPEC GRAVITY >=1.030 Abnormal 1.005-<=1.02 5 [facility] Comment on above: Performed By: #### C BC #### [facility] [address] [place] [address] Dr. Ramses Dumas UR MICRO IND INDICATED Normal [facility] Comment on above: Performed By: #### C BC #### [facility] [address] [place] [address] Dr. Ramses Dumas Urobilinogen Qn (U) 0.2 {Lucero'U}/dL Normal 0.2 - 1. 0 [facility] Comment on above: Performed By: #### C BC #### [facility] [address] [place] [address] Dr. Ramses Dumas ETHANOL (BLD ALC)on 08-13-20 ALC NOTE NOTE: 80 mg/dl is th e legal limit for a blood alcohol level Normal [facility] Comment on above: Performed By: #### B LDCX2 #### [facility] [address] [place] [address] Dr. Ramses Dumas Ethanol [Mass/Vol] mg/dL Normal [facility] Comment on above: Performed By: #### B LDCX2 #### [facility] [address] [address] [address] Ramses Dumas URon 08-13-2022 , QUAL Negative Normal NEGATIVE [facility] Comment on above: Performed By: #### C BC #### [facility] [address] [address] [address] Ramses Dumas PROF 14(COMP METB)on 022 Albumin [Mass/Vol] 3.8 g/dL Normal 3.4-5.0 [facility] Comment on above: Performed By: #### U RCX #### [facility] [address] [address] [address] Ramses Dumas Albumin/Globulin [Mass ratio] 0.9 {ratio} Normal [facility] Comment on above: Performed By: #### U RCX #### [facility] [address] [place] [address] Dr. Ramses Dumas ALP [Catalytic activity/Vol] 82 U/L Normal 46-116 [facility] Comment on above: Performed By: #### U RCX #### [facility] [address] [address] [address] Ramses Dumas ALT [Catalytic activity/Vol] 41 U/L Normal 14-59 [facility] Comment on above: Performed By: #### U RCX #### [facility] [address] [address] [address] Ramses Dumas Anion gap [Moles/Vol] 9.3 mmol/L Normal [facility] Comment on above: Performed By: #### U RCX #### [facility] [address] [address] [address] Ramses Dumas AST [Catalytic activity/Vol] 21 U/L Normal 15-37 [facility] Comment on above: Performed By: #### U RCX #### [facility] [address] [address] [address] Ramses Dumas Bilirubin [Mass/Vol] 0.3 mg/dL Normal 0.2-1.0 [facility] Comment on above: Performed By: #### U RCX #### [facility] [address] [address] [address] Ramses Dumas Calcium [Mass/Vol] 8.9 mg/dL Normal 8.5-10.1 [facility] Comment on above: Performed By: #### U RCX #### [facility] [address] [address] [address] Ramses Dumas Chloride [Moles/Vol] 105 mmol/L Normal 98-107 [facility] Comment on above: Performed By: #### U RCX #### [facility] [address] [address] [address] Ramses Dumas CO2 [Moles/Vol] 28.5 mmol/L Normal 21.0-32.0 [facility] Comment on above: Performed By: #### U RCX #### [facility] [address] [place] [address] Dr. Ramses Dumas Creatinine [Mass/Vol] 0.81 mg/dL Normal 0.55-1.02 [facility] Comment on above: Performed By: #### U RCX #### [facility] [address] [place] [address] Dr. Ramses Dumas EGFR-AF [facility] LUCIAN >60 Normal >=60 [facility] Comment on above: Performed By: #### U RCX #### [facility] [address] [place] [address] Dr. Ramses Dumas EGFR-NON AF [facility] LUCIAN >60 Normal >=60 [facility] Comment on above: Performed By: #### U RCX #### [facility] [address] [place] [address] Dr. Ramses Dumas Globulin (S) [Mass/Vol] 4.1 g/dL Normal [facility] Comment on above: Performed By: #### U RCX #### [facility] [address] [place] [address] Dr. Ramses Dumas Glucose [Mass/Vol] 100 mg/dL Normal 74-106 [facility] Comment on above: Performed By: #### U RCX #### [facility] [address] [place] [address] Dr. Ramses Dumas Potassium [Moles/Vol] 3.8 mmol/L Normal 3.5-5.1 [facility] Comment on above: Performed By: #### U RCX #### [facility] [address] [address] [address] Ramses Dumas Protein [Mass/Vol] 7.9 g/dL Normal 6.4-8.2 [facility] Comment on above: Performed By: #### U RCX #### [facility] [address] [address] [address] Ramses Dumas Sodium [Moles/Vol] 139 mmol/L Normal 136-145 [facility] Comment on above: Performed By: #### U RCX #### [facility] [address] [place] [address] Dr. Ramses Dumas Urea nitrogen [Mass/Vol] 10.0 mg/dL Normal 7.0-18.0 [facility] Comment on above: Performed By: #### U RCX #### [facility] [address] [place] [address] Dr. Ramses Dumas Urea nitrogen/Creatinine [Mass ratio] 12.3 mg/mg Normal [facility] Comment on above: Performed By: #### U RCX #### [facility] [address] [place] [address] Dr. Ramses Dumas SALICYLATEon 08-13-2022 SALICYLATE <2.8 Normal <=19.9 [facility] Comment on above: Performed By: #### U RCX #### [facility] [address] [address] [address] Ramses Dumas URINE MICROSCOPIC ONLYon BACTERIA LARGE Abnormal NONE SEEN [facility] Comment on above: Performed By: #### C BC #### [facility] [address] [place] [address] Dr. Ramses Dumas Bacteria identified Cx Nom (U) INDICATED Normal [facility] Comment on above: Performed By: #### C BC #### [facility] [address] [place] [address] Dr. Ramses Dumas CA OX CRYSTALS RARE Normal [facility] Comment on above: Performed By: #### C BC #### [facility] [address] [place] [address] Dr. Ramses Dumas CAST NONE SEEN Normal NONE SEEN [facility] Comment on above: Performed By: #### C BC #### [facility] [address] [place] [address] Dr. Ramses Dumas Crystals LM Nom (Urine sed) SEEN Abnormal NONE SEEN [facility] Comment on above: Performed By: #### C BC #### [facility] [address] [place] [address] Dr. Ramses Dumas Epithelial cells LM Ql (Urine sed) MODERATE Abnormal NONE SEEN /RARE [facility] Comment on above: Performed By: #### C BC #### [facility] [address] [place] [address] Dr. Ramses Dumas MUCOUS NONE SEEN Normal NONE SEEN [facility] Comment on above: Performed By: #### C BC #### [facility] [address] [place] [address] Dr. Ramses Dumas RBC 10-20 Abnormal 0-2 [facility] Comment on above: Performed By: #### C BC #### [facility] [address] [place] [address] Dr. Ramses Dumas WBC 20-50 Abnormal NONE SEEN [facility] Comment on above: Performed By: #### C BC #### [facility] [address] [place] [address] Dr. Ramses Dumas Pap IG,rfx Aptima HPV all pt hon 08-09-2022 . . Normal [facility] Comment on above: Performed By: #### C MP #### [facility] [address] [place] [address] Dr. Ramses Dumas DIAGNOSIS: Comment Abnormal [facility] Comment on above: Result Comment: EPIT HELIAL CELL ABNORMALITY. LOW GRADE SQUAMOUS INTRAEPITHELIAL LESION (LSIL). Performed By: #### C MP #### [facility] [address] [place] [address] Dr. Ramses Dumas Electronically signed by: Comment Normal [facility] Comment on above: Result Comment: Arnaud Joseph MD, Pathologist Performed By: #### C MP #### [facility] [address] [place] [address] Dr. Ramses Dumas HPV Aptima Negative Normal Negative [facility] Comment on above: Result Comment: This nucleic acid amplification test detects fourteen high-risk HPV types (16,18,31,33,35,39,45,51,52,56,58,59,66,68) without differentiation. Performed By: #### C MP #### [facility] [address] [place] [address] Dr. Ramses Dumas Methodology: Comment Normal [facility] Comment on above: Result Comment: This liquid based ThinPrep(R) pap test was screened with the use of an image guided system. Performed By: #### C MP #### [facility] [address] [place] [address] Dr. Ramses Dumas Note: Comment Normal [facility] Comment on above: Result Comment: The Pap smear is a screening test designed to aid in the detection of premalignant and malignant conditions of the uterine cervix. It is not a diagnostic procedure and should not be used as the sole means of detecting cervical cancer. Both false-positive and false-negative reports do occur. . Performed By: #### C MP #### [facility] [address] [place] [address] Dr. Ramses Dumas Pathologist Provided ICD10 Comment Normal [facility] Comment on above: Result Comment: R87. [id number] Performed By: #### C MP #### [facility] [address] [place] [address] Dr. Ramses Dumas Performed by: Comment Normal [facility] Comment on above: Result Comment: Gail Ruano, Log Stacker Operator (ASCP) Performed By: #### C MP #### [facility] [address] [place] [address] Dr. Ramses Dumas Reflex Criteria: Comment Normal [facility] Comment on above: Result Comment: See below for HPV testing results. . Performed By: #### C MP #### [facility] [address] [place] [address] Dr. Ramses Dumas Specimen adequacy: Comment Normal [facility] Comment on above: Result Comment: Sati sfactory for evaluation. Endocervical and/or squamous metaplastic cells (endocervical component) are present. Performed By: #### C MP #### [facility] [address] [address] [address] Ramses Dumas Vital Signs Date Time Vital Sign Value Performing Clinician Faci lity 04-10-2024 07:30-0400 Body temperature 98 [degF] MD Domingo Das Work Phone: [facility] 04-10-2024 07:30-0400 Diastolic blood pressure 73 mm[Hg] MD Domingo Das Work Phone: [facility] 04-10-2024 07:30-0400 Heart rate 75 /min MD Domingo Das Work Phone: [facility] 04-10-2024 07:30-0400 Respiratory rate 16 /min MD Domingo Das Work Phone: [facility] 04-10-2024 07:30-0400 SaO2% (BldA) [Mass fraction] 100 % MD Domingo Das Work Phone: [facility] 04-10-2024 07:30-0400 Systolic blood pressure 123 mm[Hg] MD Domingo Das Work Phone: [facility] 04-08-2024 22:44-0400 Body height 167.64 cm MD Domingo Das Work Phone: [facility] 04-08-2024 22:44-0400 Body weight 86.58 kg MD Domingo Das Work Phone: [facility] 03-20-2023 10:30-0400 Blood Pressure Location Nona VILLA [facility] 03-20-2023 10:30-0400 Diastolic blood pressure 73 mm[Hg] Nona VILLA [facility] 06-02-2023 10:30-0400 Heart rate 80 /min Nona VILLA [facility] 03-20-2023 10:30-0400 Respiratory rate 16 /min Nona VILLA [facility] 03-20-2023 10:30-0400 Systolic blood pressure 128 mm[Hg] Nona VILLA [facility] Encounters Encounter Date Encounter Type Care Provider Facility Start: 06-16-2024 End: 10-03-2024 ambulatory [facility] Start: 04-09-2024 Non-patient / Non-visit MD Vicente Das Work Phone: [facility] Work Phone: Start: 04-08-2024 End: 04-10-2024 Evaluation and management of inpatient MD Domingo Das Work Phone: [address] Work Phone: Start: 04-08-2024 ambulatory Domingo Das Facility: [facility] Start: 12-29-2023 End: 12-29-2023 ambulatory [place] Facility:[facility] Start: 12-17-2023 End: 12-17-2023 ambulatory CELIO VAN Not Available Start: 12-04-2023 End: 12-05-2023 ambulatory Nona VILAL Facility:[facility] Start: 12-04-2023 End: 12-04-2023 Patient encounter procedure Nona VILLA [facility] Start: 04-09-2023 End: 04-10-2023 ambulatory Nona VILLA Facility:[id number] Start: 03-20-2023 End: 03-21-2023 ambulatory Nona VILLA Facility:[facility] Start: 03-20-2023 End: 03-20-2023 Patient encounter procedure Nona VILLA [facility] Start: 02-16-2023 End: 02-16-[address] DOMINGO DAS . Facility:[facility] Start: 02-02-2023 End: 02-02-[address] DOMINGO DAS . Facility: Start: 12-26-2022 End: 12-27-2022 ambulatory Nona VILLA Facility:[facility] Start: 12-26-2022 End: 12-26-2022 Patient encounter procedure Nona VILLA [facility] Start: 12-16-2022 End: 12-17-[address] NONA VILLA . Facility: Start: 12-15-2022 End: 12-16-[address] NONA VILLA . Facility:[facility] Start: 11-27-[address] DOMINGO DAS . Facili ty:[facility] Start: 11-07-2022 End: 11-07-[address] DOMINGO DAS . Facility:[facility] Start: 11-04-2022 Encounter for preprocedural cardiovascular examination DR JEFFERSON GIBBS . [facility] Start: 11-04-2022 Encounter for preprocedural laboratory examination DR JEFFERSON GIBBS . [facility] Start: 11-03-2022 End: 11-04-2022 Encounter for preprocedural cardiovascular examination DR DOMINGO DAS . Facility:[facility] Start: 11-03-2022 End: 11-04-[address] DOMINGO DAS . Facility:[facility] Start: 09-20-2022 Encounter for preprocedural laboratory examination DR NONA VILLA . [facility] Start: 09-18-2022 End: 09-18-[address] NONA VILLA . Facility:[facility] Start: 09-16-2022 End: 09-17-[address] NONA VILLA . Facility:[facility] Start: 09-16-2022 End: 09-17-2022 Encounter for preprocedural laboratory examination DR NONA VILLA . Facility:[facility] Start: 09-05-2022 End: 09-05-2022 ambulatory ORA BOND . 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 Facility:[facility] Start: 08-13-2022 End: 08-13-2022 ambulatory ORA BOND . Facility: Start: 07-31-2022 Encounter for cervic al smear to confirm findings of recent normal smear following initial abnormal smear DR JEFFERSON GIBBS . [facility] Start: 07-30-2022 End: 07-30-[address] DOMINGO DAS . Facility: Start: 07-30-2022 End: 07-30-2022 Encounter for cervical [...] Date Care Activity Detail Author Start: 04-10-2024 [facility] Start: 04-08-2024 Referral to Heel Builder Machine [facility] Start: 04-08-2024 Hospital admission [facility] Start: 04-08-2024 [facility] Start: 06-19-2022 Influenza vaccination INFLUENZA (#1) [facility] Start: 10-19-2021 DEPRESSION ASSESSMENT DEPRESSION ASSESSMENT [facility] Start: 2021 HPV TESTING HPV TESTING [facility] Start: 2012 PAP TESTING PAP TESTING [facility] Start: 2010 Urine microalbumin profile DTAP,TDAP,TD (1 - Tdap) [facility] Start: 2009 HEPATITIS C SCREENING HEPATITIS C SCREENING [facility] Start: 2009 HIV SCREENING HIV SCREENING [facility] Start: 03-14-1992 COVID-19 VACCINE (#1) COVID-19 VACCINE (#1) [facility] Start: 1991 HEPATITIS B (1 of 3 - 3-dose series) HEPATITIS B (1 of 3 - 3-dose series) [facility] Patient Education Bipolar Disord er (DC) [facility] DC Instructions Know your Meds [facility] Work Phone: Patient referral [facility] Work Phone: Immunizations Immunization Date Immunization Notes Care Provider Beata moore 08-01-2019 influenza virus vaccine, unspecified formulation Nonadinesh VILLA [facility] 08-09-2018 tetanus toxoid, redu franco diphtheria toxoid, and acellular pertussis vaccine, adsorbed Nona VILLA [facility] 08-08-2018 influenza virus vaccine, unspecified formulation Nona VILLA [facility] 06-19-2004 hepatitis B vaccine, pediatric or pediatric/adolescent dosage Nona [employer] [facility] 03-27-2004 hepatitis B vaccine, pediatric or pediatric/adolescent dosage Nona [employer] [facility] 12-18-2003 hepatitis B vaccine, pediatric or pediatric/adolescent dosage Nona [employer] [facility] 12-18-2003 measles, mumps and rubella virus vaccine Nona [employer] [facility] 04-10-1993 DTaP, unspecified formulation [employer] [facility] 04-10-1993 poliovirus vaccine, unspecified formulation [employer] [facility] 12-28-1992 Hib, unspecified formulation Nona VILLA [facility] 12-28-1992 measles, mumps and rubella virus vaccine Nona [employer] [facility] 03-26-1992 Hib, unspecified formulation Nona VILLA [facility] 01-18-1992 Hib, unspecified formulation Nona VILLA [facility] 1991 Hib, unspecified formulation Nona VILLA [facility] Payers Date Payer Category Payer Unknown [id number] 2023 Self-pay 2021 Medicaid [place] 09/17 [place] [employer] [id number] 2021-[facility] [phone] [place] [address] Medicaid [id number] 1991 Unknown [id number] 2.16.840.1.545150.3.579.2.593 1991 Unknown [id number] 2.16.840.1.037289.3.579.2.593 1991 Unknown [id number] 2.16.840.1.737615.3.579.2.593 1991 Unknown [id number] 2.16.840.1.785926.3.579.2.593 1991 Unknown [id number] 2.16.840.1.665154.3.579.2.593 1991 Unknown [id number] 2.16.840.1.733645.3.579.2.593 1991 Unknown [id number] 2.16.840.1.204973.3.579.2.593 1991 Unknown [id number] 2.16.840.1.359569.3.579.2.593 1991 Unknown [id number] 2.16.840.1.819417.3.579.2.593 1991 Unknown [id number] 2.16.840.1.476120.3.579.2.593 1991 Unknown [id number] 2.16.840.1.979845.3.579.2.593 1991 Unknown [id number] 2.16.840.1.475129.3.579.2.593 1991 Unknown [id number] 2.16.840.1.903364.3.579.2.593 1991 Unknown [id number] 2.16.840.1.963321.3.579.2.593 1991 Unknown [id number] 2.16.840.1.545377.3.579.2.593 1991 Unknown [id number] 2.16.840.1.943586.3.579.2.593 1991 Unknown [id number] 2.16.840.1.079642.3.579.2.727 1991 Unknown [id number] 2.16.840.1.241062.3.579.2.727 1991 Unknown [id number] 2.16.840.1.442550.3.579.2.727 1991 Unknown [id number] 2.16.840.1.913408.3.579.2.727 1991 Unknown [id number] 2.16.840.1.776274.3.579.2.1259 1959 Medicaid [id number] 1958 Self-pay [id number] 1959 Unknown [id number] Unknown [id number] 2.16.840.1.206111.3.579.2.531 Unknown [id number] 2.16.840.1.800120.3.579.2.531 Unknown [id number] 2.16.840.1.628700.3.579.2.531 Social History Date Type Detail Facility Tobacco smoking status [facility] Tobacco smoking consumption unknown [facility] Start: 1990 Sex Assigned At Not on file C [facility] Start: 08-20-2021 End: 04-09-2024 Tobacco smoking status Never smoked tobacco (finding) [facility] Tobacco smoking status Never [facility] Sex Assigned At Female [facility] Start: 1990 Sex Assigned At Female F [facility] Goals Date Patient Goal Desired Activity /State Functional Status Date Assessment Result Facility 04-10-2024 Functional status Patient at Baseline [facility] Work Phone: 03-20-2023 Functional Status N/A [facility] [place] Mental Status Date Assessment Result Facility 04-10-2024 Cognitive function Cognitive Sta tus Patient at Baseline [facility] Work Phone: Clinical Notes 07-03-2022 to 04-10-2024 Note Date & Type Note Facility 04-10-2024 Discharge summary Note Date/Time April 10, 2024 7:10am [facility] [address] [place] [id number] Discharge Summary Signed Patient: Diana Barriga MR#: [id number] : 1990 Acct:[id number] Age/Sex: 33 / F Adm Date: 4 Loc: Room: [address] [place] [address]: Arnulfo Aviles MD Copies to: [...] Dr. Fenton but wants to switch to [facility]. Along with this patient is in marriage counseling with her current and that today's session was not good. Patient stated she needs to be home to take care of her kids, the custody char[place]ton, and her marriage. Patient upset because she missed her son's play and has plans to take kids to [place] tomorrow. Patient denies any suicidal ideation denies hallucinations denies racing thoughts. Patient reports that there is no changes in her appetite or sleep. Patient reports that she feels fine. She has tried a lot of medications in the past and believes none of them have worked. He is going to [facility] for psych therapy. He wants to try [...] She has an appointment coming up with [facility]. She deniedrecent suicide attempts or self [...] Restriction Diet: Regular Instructions: Bipolar Disorder (DC), [facility] DC Instructions, Know your Meds [...] signed by Arnulfo Aviles MD> 04/10/24 0929 [facility] Work Phone: 1(376) 496-817006-22-2024 History and physical note Author Arnulfo ornelas [facility] April 09, 2024 9:09am Note Date/Time April 09, 2024 8:43 am [facility] [address] [place] [address] Psychiatry H&P Signed Patient: Diana Barriga MR#: [id number] : 1990 Acct:[id number] Age/Sex: 33 / F Adm Date: 4 Loc: Room: [address] [place] [address] Type: ADM IN Attending Dr: Arnulfo Aviles MD Copies to: MD Domingo Tate MD~ Date of Service: 04/09/2024 [facility] Narrative Narrative: Ms. Barriga is a 33 [...] Dr. Fenton but wants to switch to [facility]. Along with this patient is in marriage counseling with her current and that today's session was not good. Patient stated she needs to be home to take care of her kids, the custody [place], and her marriage. Patient upset because she missed her son's play and has plans to take kids to [place] tomorrow. Patient denies any suicidal ideation denies hallucinations denies racing thoughts. Patient reports that there is no changes in her appetite or sleep. Patient reports that she feels fine. She has tried a lot of medications in the past and believes none of them have worked. He is going to [facility] for psych therapy. He wants to try therapy before any medications. 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 Documented By: Arnulfo Aviles MD [id number] Signed By: <Electronically signed by Arnulfo Aviles MD> 04/09/24 0909 [facility] Work Phone: 1(808) 919-717906-02-2023 Hospital Discharge instructions Follow Up Care 03/20/2023 11:51:58 With:IDALMIS BORDEN, Nona Turner, URL Address: [address] [place], [place] [address]- When: Unknown [facility] 06-02-2023 Hospital Discharge instructions Patient Education 03/20/2023 [...] include: ?8 oz (237 mL) of milk, ffkjuri-hqvrggwztyri-vbuyg milk, and calcium- fortifiedfruit juice. Calcium-fortified means [...] ?Spinach (cooked), rhubarb, beets, sweet potatoes, and Belizean chard. ?Peanuts. ?Potato chips, vincentian fries, and baked potatoes with skin on. ?Nuts and nut products. ?Chocolate. If you regularly take a diuretic medicine, make sure to eat at least 1 or 2 servings of fruits or vegetables that are high in potassium each day. These include: ?Avocado. ?Banana. ?Clarks, prune, carrot, or tomato juice. ?Baked potato. [...] magnesium, fish oil, or vitamin B6. Take wnqh-gas-cktsonq and prescription medicines only as told by [...] Casseroles. Pizza. Lasagna. Frozen meals. Potato chips. [place] fries. The items listed above may not [...] provider. Document Revised: 06/16/2022 Document Reviewed: 06/16/2022 [employer] Patient Education 2022 [employer] Follow Up Care 12/26/2022 08:46:46 With:IDALMIS BORDEN, Nona Turner, URL Address: [facility] [address], [place] [address]- When: Unknown [facility] 01-20-2023 NoteOPERATIVE NOTE OPERATION DATE: 11/07/2022 PROCEDURE: Mery endometrial ablation with LEEP. PREOPERATIVE DIAGNOSIS: Cervical dysplasia, menorrhagia. POSTOPERATIVE DIAGNOSIS: Cervical dysplasia, menorrhagia. ANESTHESIA: General. SURGEON: Jefferson Gibbs D.O. ASSEMBLER SANDAL PARTS: None. BLOOD LOSS: 50 mL. URINE OUTPUT: [...] taken to Recovery Room in stable condition.[id number] Discharge instructions Follow Up Care 09/25/2022 13:54:04 With:IDALMIS BORDEN, Nona Turner, URL Address: [address] [place], [place] [address]- When: Unknown [facility] 12-01-2022 NoteOPERATIVE NOTE OPERATION DATE: 09/18/2022 PREOPERATIVE [...] usual fashion. I started by passing a 22-[place] Olympus cystoscope per urethra and into the [...] removed. She was then transferred to a [place] and wheeled to PACU in stable condition.[facility] [id number] NoteHNO ID: [id number] Author: Daniel Santiago APRN.[facility] Service: ? Author Type: Nurse Practitioner Type: Progress Notes Filed: 09/04/2022 7:46 AM Note Text: The patient did not show up for this appointment. The patient did not show up for this appointment.[id number] History of Present illness Narrative* Daniel Santiago APRN.INSURANCE HEALTHCARE CONSULTANT - 09/04/2022 7:40 AM EST The patient did not show up for this appointment. The patient did not show up for this appointment. [facility]-2022 NotePROCEDURE: XR ANKLE LT MIN 3 V COMPARISON: None. HISTORY: Sprain of calcaneofibular ligament FINDINGS: BONES:No fracture, acute abnormality, or significant arthropathy. SOFT TISSUES:Extensive lateral soft tissue swelling EFFUSION:None visible. OTHER: Negative. IMPRESSION: Lateral soft tissue swelling. No acute fracture Electronically authenticated by: GLEN GRAFF Date: 2022-07-03 07:09[facility] Future Appointments Appointment Date:03/20/2023 10:15:00 AM Scheduled Provider:Nona VILLA MD Location:[facility] Appointment Type:URO Office Visit [facility] evaluation + Plan note Future Appointments Appointment Date:12/04/2023 09:45:00 AM Scheduled Provider:Nona VILLA MD Location:[facility] Appointment Type:URO Office Visit Diagnostic Tests Pending * Electrolyte Panel 03/20/23 [facility] evaltrzcah note* Diagnosis NO SHOW- Primary [facility] this [facility] Diagnosis Onset Date Resolution Status Bipolar disorder [facility] Work Phone: Hospital course Narrative No data available for this section [facility] progress note No data available for this section [facility] Summary Purpose Family History No Family History [...] or prosecute any alcohol or drug abuse patient.[facility] Reason for Visit (unrecogniz ed section and content) Reason Onset Date Comments No Show 09/04/2022 No show Care Teams (unrecognized sec tion and content) [employer]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 DATE CREATED AUTHOR AUTHOR'S ORGANIZ ATION 12/19/2023 [facility] DATE CREATED AUTHOR AUTHOR'S ORGANIZ ATION 07/22/2024 [facility] DATE CREATED AUTHOR AUTHOR'S ORGANIZ ATION 10/05/2024 [facility] FOR RECORDS PERTAINING TO PATIENTS WHO ARE [...] BE BASED ON THE PRIMARY CLINICAL RECORDS. [facility]. provides no warranty or guarantee of the accuracy or completeness of information in this document.
[2024-12-02 17:41] LABS: Basophils Percent Auto 0.6 % (0.2-2.0); Eosinophils Absolute Auto 0.1 10^3/uL (0.0-0.7); Eosinophils Percent Auto 1.8 % (0.9-7.0); Hematocrit 38.1 % (36.0-48.0); Hemoglobin 12.6 g/dL (12.0-16.0); Immature Granulocytes Abs Auto 0.01 10^3/uL (0.00-0.03); Immature Granulocytes Pct Auto 0.1 % (0.0-0.5); Lymphocytes Absolute Auto 3.2 10^3/uL (1.2-3.8); Lymphocytes Percent Auto 44.3 % (20.5-60.0); Mean Corpuscular HGB Conc 33.1 g/dL (29.9-35.2); Mean Corpuscular Hemoglobin 28.3 pg (26.7-34.0); Mean Corpuscular Volume 85.4 fL (81.0-99.0); Mean Platelet Volume 9.1 fL (9.5-13.5); Monocytes Absolute Auto 0.5 10^3/uL (0.3-0.8); Monocytes Percent Auto 7.4 % (1.7-12.0); Neutrophils Absolute Auto 3.3 10^3/uL (1.4-6.5); Neutrophils Percent Auto 45.8 % (43.0-75.0); Platelet Count 273 10^3/uL (150-450); Red Blood Count 4.46 10^6/uL (4.20-5.40); Red Cell Distribution Width 12.5 % (11.0-15.0); White Blood Count 7.3 10^3/uL (4.0-11.0)
[2024-12-02 17:42] LABS: Bilirubin Urine NEGATIVE (NEGATIVE); Blood Urine LARGE (NEGATIVE); Clarity Urine CLEAR (CLEAR); Color Urine DK. ORANGE (YELLOW); Glucose Urine UA NEGATIVE (NEGATIVE); Ketones Urine NEGATIVE (NEGATIVE); Leukocyte Esterase Urine TRACE (NEGATIVE); Nitrite Urine POSITIVE (NEGATIVE); Protein Urine NEGATIVE (NEG/TRACE); Specific Gravity Urine <=1.005 (1.005-1.025); pH Urine 6.5 (5.0-9.0)
--- NOTE | 2024-12-02 17:43 | XR_ITS ---
[address] [id number] Patient Name: CORI BARRIGA MRN: [id number] date: 1990 Sex: F Assigned Patient Location: ER Current Patient Location: Accession/Order Number: [id number] Exam Date: 12/02/2024 18:12 Report Date: 12/02/2024 20:07 At the request of: NINOSKA JENNINGS Procedure: XR abdomen 1V EXAM: XR abdomen 1V HISTORY: kub COMPARISON: CT abdomen pelvis wo con Study Date: 09/28/2024 TECHNIQUE: Single supine view of the abdomen FINDINGS: 4 mm calculus is seen projecting over the expected location of the lower pole of the kidneys bilaterally suggestive of bilateral nephrolithiasis. Nonobstructive bowel pattern is seen. Moderate to large volume of stool is seen in the colon. XR/XR abdomen 1V IMPRESSION: 4 mm calculus is seen projecting over the expected location of the lower pole of the kidneys bilaterally suggestive of bilateral nephrolithiasis Electronically authenticated by: ESTRELLA PERALTA Date: 12/02/2024 20:07
[2024-12-02] MEDS: ONDANSETRON PF 4 MG/2 ML VIAL IV (17:51)
[2024-12-02] MEDS: KETOROLAC TROMETHAMINE 30 MG/ML VIAL 15 MG IVP (17:51)
[2024-12-02] MEDS: 0.9 % SODIUM CHLORIDE 1,000 ML 1000 ML IV (17:52)
[2024-12-02 17:53] LABS: Bacteria Urine SMALL #/HPF (NONE SEEN)
[2024-12-02 17:54] LABS: Crystals Seen? Seen #/HPF (None Seen); Mucus Urine MODERATE (NONE SEEN); RBC Urine 0-2 #/HPF (0-2); Squamous Epithelial Cell Urine FEW #/LPF (NONE/RARE); Transitional Epi Cells Urine RARE #/LPF (NONE SEEN)
[2024-12-02 17:55] LABS: Calcium Oxalate Crystals Urine RARE; Cast Seen? NONE SEEN #/LPF (NONE SEEN); Urine Culture Indicated YES-FRMC
[2024-12-02 17:58] LABS: Alanine Aminotransferase 32 U/L (14-59); Albumin Globulin Ratio 1.1; Albumin Level 3.7 g/dL (3.4-5.0); Alkaline Phosphatase 74 U/L (46-116); Anion Gap 9.3; Aspartate Amino Transferase 20 U/L (15-37); BUN Creatinine Ratio 5.1; Bilirubin Total 0.3 mg/dL (0.2-1.0); Calcium 9.2 mg/dL (8.5-10.1); Carbon Dioxide 31.9 mmol/L (21.0-32.0); Chloride 104 mmol/L (98-107); Estimated GFR (African America >60 (>=60 mL/min/1.73m^2); Estimated GFR (Non-African Ame >60 (>=60 mL/min/1.73m^2); Globulin 3.3 g/dL; Glucose 90 mg/dL (74-106); Potassium 3.2 mmol/L (3.5-5.1); Sodium 142 mmol/L (136-145)
[2024-12-02 18:00] LABS: Lactate/Lactic Acid 1.1 mmol/L (0.4-2.0)
[2024-12-02] MEDS: CEFTRIAXONE 1,000 MG in 0.9 % SODIUM CHLORIDE 50 ML 100 MG IV (18:41)
[2024-12-02 18:47] VITALS: BP 120/73; PULSE 77; O2SAT 98
== END 2024-12-02 19:19 | disposition home or self-care (01) ==
PROVIDERS: Emergency Provider Emergency Medicine; PCP Family Medicine
DX: N39.0 Urinary tract infection, site not specified (principal); R11.2 Nausea with vomiting, unspecified; N23 Unspecified renal colic; Z87.440 Personal history of urinary (tract) infections; Z90.49 Acquired absence of other specified parts of digestive tract; Z90.710 Acquired absence of both cervix and uterus; Z87.442 Personal history of urinary calculi
CPT/HCPCS: 36415; 74018; 80053; 81001; 83605; 83690; 85025; 87086; 96361; 96365; 96375; 99285; J0696; J1885; J2405

== ENCOUNTER 2025-01-21 16:23 | Emergency (ER) | payer OTHER, SELFPAY ==
[2025-01-21 16:26] VITALS: BP 139/91; PULSE 84; TEMP 36.5; O2SAT 98; BMI 28.2
--- NOTE | 2025-01-21 16:39 | ED_ITS ---
HPI HPI - General Adult General Chief complaint: Back Pain/Injury Stated complaint: SEVERE FLANK PAIN Time Seen by Provider: 01/21/25 16:25 Source: patient Mode of arrival: walk-in Limitations: no limitations History of Present Illness HPI narrative: Patient is a 34-year-old female well-known to this emergency department who presents for left flank pain increasing over the last day. She has what sounds to be a retrograde IVP performed at [facility] last week, she states that her urologist injected dye into her bladder. She had some bladder discomfort after the procedure, however she has had increasing left flank pain in the last day. No fevers or vomiting. She reports some burning with urination. She did have a catheter in place for the procedure in order to inject the dye. No concern for . Related Data Home Medications ?Medication ?Instructions ?Recorded ?Confirmed cefdinir 300 mg capsule 300 mg PO BID 12/02/24 12/02/24 Previous Rx's ?Medication ?Instructions ?Recorded phenazopyridine 200 mg tablet 200 mg PO Q8H PRN pain 6 doses #6 10/02/24 (Pyridium) tabs ondansetron 4 mg disintegrating 4 mg PO Q4H PRN nausea and 12/02/24 tablet vomiting 3 days #6 tabs Allergies Allergy/AdvReac Type Severity Reaction Status Date / Time No Known Drug Allergies Allergy Verified 10/02/24 06:43 Opioid HPI Opioid Management Most Recent Opioid Data: Last Pain Scale 6 01/21/25 18:47 01/21/25 Last DEC Pain Assessment 01/21/25 18:47 Ur Phencyclidine Scrn Negative (NEGATIVE) 04/08/24 15:00 03/20 11/11 Review of Systems ROS Constitutional Reports: chills; Denies: fever Ears, nose, mouth, and throat Denies: throat pain or nasal congestion Respiratory Denies: shortness of breath Gastrointestinal Reports: abdominal pain; Denies: nausea or vomiting Genitourinary Reports: painful urination Musculoskeletal Reports: back pain Integumentary/Breast Denies: rash Hematologic/Lymphatic Denies: easy bruising or easy bleeding [facility] Medical History (Updated 01/21/25 @ 20:16 by VARSHA Benitez) Anxiety and depression ?F41.9 - Anxiety disorder, unspecified (ICD-10) ?F32.A - Depression, unspecified (ICD-10) Kidney stones ?N20.0 - Calculus of kidney (ICD-10) Bipolar disorder ?F31.9 - Bipolar disorder, unspecified (ICD-10) Kidney stones ?N20.0 - Calculus of kidney (ICD-10) Surgical History (Updated 12/02/24 @ 17:36 by Tamiko Taylor) H/O: hysterectomy ?Z90.710 - Acquired absence of both cervix and uterus (ICD-10) History of ultrasound guided needle biopsy ?Z98.890 - Other specified postprocedural states (ICD-10) H/O local excision of skin lesion ?Z98.890 - Other specified postprocedural states (ICD-10) S/P extracorporeal shock wave therapy (03/2023) ?Z98.890 - Other specified postprocedural states (ICD-10) History of wisdom tooth extraction ?K08.409 - Partial loss of teeth, unspecified cause, unspecified class (ICD- 10) H/O LEEP ?Z98.890 - Other specified postprocedural states (ICD-10) History of endometrial ablation ?Z98.890 - Other specified postprocedural states (ICD-10) S/P cystoscopy ?Z98.890 - Other specified postprocedural states (ICD-10) S/P ureteral stent placement ?Z96.0 - Presence of urogenital implants (ICD-10) H/O ureteroscopy ?Z98.890 - Other specified postprocedural states (ICD-10) History of cholecystectomy ?Z90.49 - Acquired absence of other specified parts of digestive tract (ICD- 10) Family History Other Family history of hypertension Social History Within the past year, how often did you have a drink containing alcohol: monthly or less Smoking status: Never smoker Non-prescribed substance use: denies use 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 Highest level of school completed/degree received: Master's degree Are you now , , , , never or living with a partner: Little interest or pleasure in doing things: not at all Feeling down, depressed, or hopeless: not at all Gender Identity: female Exam Narrative Exam Narrative: Gen.: Awake, alert, in no distress Head: Normocephalic, atraumatic ENT: Moist mucous membranes Respiratory: No respiratory distress, lungs clear bilaterally Cardio: Regular rate and rhythm Gastrointestinal: Abdomen is soft, nondistended and mild tenderness in the suprapubic abdomen and left flank with no guarding or rebound Extremities: Moves extremities equally Psych: Normal mood and affect Neuro: No focal neuro deficit Skin: Warm, dry, intact Constitutional Vital Signs, click to edit/add: Last Vital Signs Temp 97.7 F 01/21/25 16:26 Pulse 88 01/21/25 19:16 Resp 18 01/21/25 19:16 BP 130/93 H 01/21/25 19:16 Pulse Ox 98 01/21/25 19:16 O2 Del Method Room Air 01/21/25 19:16 Course Vital Signs Vital signs: Vital Signs Temperature 97.7 F 01/21/25 16:26 Pulse Rate 84 01/21/25 16:26 Respiratory Rate 18 01/21/25 16:26 Blood Pressure 139/91 01/21/25 16:26 Pulse Oximetry 98 01/21/25 16:26 Oxygen Delivery Method Room Air 01/21/25 16:26 Temperature 97.7 F 01/21/25 16:26 Pulse Rate 88 01/21/25 19:16 Respiratory Rate 18 01/21/25 19:16 Blood Pressure 130/93 H 01/21/25 19:16 Pulse Oximetry 98 01/21/25 19:16 Oxygen Delivery Method Room Air 01/21/25 19:16 Medical Decision Making [facility] Narrative Medical decision making narrative: Patient was medicated with IV Dilaudid, Toradol, Zofran, IV fluids. Laboratory studies reviewed and noted, stable although the patient has a nitrite positive UTI. She was given 2 g IV Rocephin. She has no signs of sepsis at this time. CT scan shows the patient has a 7 mm obstructing stone in the left proximal ureter as well as a 3 mm stone in the left distal ureter just outside the bladder. She was given additional morphine for pain control. I discussed with the patient that if she feels her pain is well-controlled, she can try outpatient management and follow-up with urology on Thursday, she feels she is still in significant pain and I discussed with the patient that she will need to be transferred to a facility with coverage by her urology group. This facility has no urology coverage and she is established with [facility] urology. Dr. Sanchez is her primary urologist. I discussed the case with Dr. Guzmán ([id number]) who requested the patient be sent to [facility] for stent tomorrow. Initially patient was upset because she did not want to go to [place], I made her aware that urology prefer she come to [facility] due to limitations of smaller satellite hospitals on the weekends. 2012: Patient was accepted by hospitalist service at [facility]. Patient's is insisting on driving her by private car. I feel this is reasonable as she is hemodynamically stable at this time. Her IV was removed for transport by private car. Patient is to be transported by private car when she has a bed assignment. She is stable at this time. Critical care time 35 minutes SUPERVISED APC VISIT, PHYSICIAN ATTESTATION: Based on the medical record the care appears appropriate. ? Medical Records Medical records reviewed: Yes I reviewed the patient's medical records Lab Data Lab results reviewed: Yes I reviewed the patient's lab results Labs: Lab Results 01/21/25 Range/Units 16:35 WBC 8.2 (4.0-11.0) 10^3/uL RBC 4.92 (4.20-5.40) 10^6/uL Hgb 13.8 (12.0-16.0) g/dL Hct 42.5 (36.0-48.0) % MCV 86.4 (81.0-99.0) fL MCH 28.0 (26.7-34.0) pg MCHC 32.5 (29.9-35.2) g/dL RDW 12.5 (11.0-15.0) % Plt Count 307 (150-450) 10^3/uL MPV 9.0 L (9.5-13.5) fL Neut % (Auto) 58.2 (43.0-75.0) % Lymph % (Auto) 33.9 (20.5-60.0) % [place] % (Auto) 6.8 (1.7-12.0) % Eos % (Auto) 0.5 L (0.9-7.0) % Baso % (Auto) 0.5 (0.2-2.0) % Neut # (Auto) 4.8 (1.4-6.5) 10^3/uL Lymph # (Auto) 2.8 (1.2-3.8) 10^3/uL [place] # (Auto) 0.6 (0.3-0.8) 10^3/uL Eos # (Auto) 0.0 (0.0-0.7) 10^3/uL Baso # (Auto) 0.0 (0.0-0.1) 10^3/uL Abs Immat Gran (auto) 0.01 (0.00-0.03) 10^3/uL Imm/Tot Granulo (auto) 0.1 (0.0-0.5) % Sodium 139 (136-145) mmol/L Potassium 3.3 L (3.5-5.1) mmol/L Chloride 104 (98-107) mmol/L Carbon Dioxide 30.8 (21.0-32.0) mmol/L Anion Gap 7.5 BUN 6.0 L (7.0-18.0) mg/dL Creatinine 0.82 (0.55-1.02) mg/dL Est GFR ( Amer) >60 (>=60 mL/min/1.73m^2) Est GFR (Non-Af Amer) >60 (>=60 mL/min/1.73m^2) BUN/Creatinine Ratio 7.3 Glucose 90 (74-106) mg/dL Lactate 1.3 (0.4-2.0) mmol/L Calcium 9.1 (8.5-10.1) mg/dL Total Bilirubin 0.4 (0.2-1.0) mg/dL AST 20 (15-37) U/L ALT 44 (14-59) U/L Alkaline Phosphatase 74 (46-116) U/L Total Protein 7.8 (6.4-8.2) g/dL Albumin 3.9 (3.4-5.0) g/dL Globulin 3.9 g/dL Albumin/Globulin Ratio 1.0 Serum HCG, Qual Negative (NEGATIVE) Urine Color Lt. yellow (YELLOW) Urine Clarity Cloudy A (CLEAR) Urine pH 6.5 (5.0-9.0) Ur Specific [place] 1.010 (1.005-1.025) Urine Protein Trace (NEG/TRACE) mg/dL Urine Glucose (UA) Negative (NEGATIVE) mg/dL Urine Ketones Negative (NEGATIVE) mg/dL Urine Occult Blood Moderate A (NEGATIVE) Urine Nitrite Positive A (NEGATIVE) Urine Bilirubin Negative (NEGATIVE) Urine Urobilinogen 0.2 (0.2-1.0) EU/dL Ur Leukocyte Esterase Large A (NEGATIVE) Urine RBC 2-5 A (0-2) #/HPF Urine WBC 50-75 A (NONE SEEN) #/HPF Ur Squamous Epith Cells Few A (NONE/RARE) #/LPF Urine Crystals None seen (None Seen) #/HPF Urine Bacteria Large A (NONE SEEN) #/HPF Urine Casts None seen (NONE SEEN) #/LPF Urine Mucus None seen (NONE SEEN) Ur Culture Indicated? Yes[place] [place] Imaging Data CT scan - abdomen: Attestation: I have reviewed the pertinent imaging results. Discharge Plan Discharge Chief Complaint: Back Pain/Injury Clinical Impression: Acute left flank pain, UTI (urinary tract infection), Left ureteral stone Patient Disposition: [facility] Time of Disposition Decision: 20:16 Discharge Location: [facility] Condition: Good Mode of Transportation: Private Vehicle Prescriptions / Home Meds: No Action phenazopyridine [Pyridium] 200 mg tablet 200 mg PO Q8H PRN (Reason: pain) Qty: 6 0RF cefdinir 300 mg capsule 300 mg PO BID ondansetron 4 mg tablet,disintegrating 4 mg PO Q4H PRN (Reason: nausea and vomiting) 3 Days Qty: 6 0RF Print Language: South Sudanese Referrals: Ignacio Das MD [Primary Care Provider] - 1 week
[2025-01-21] MEDS: HYDROMORPHONE HCL 0.5 MG/0.5 ML SYRINGE IV (16:45)
[2025-01-21] MEDS: KETOROLAC TROMETHAMINE 30 MG/ML VIAL IVP (16:45)
[2025-01-21] MEDS: 0.9 % SODIUM CHLORIDE 1,000 ML 999 ML IV (16:45)
[2025-01-21] MEDS: ONDANSETRON PF 4 MG/2 ML VIAL IV (16:45)
[2025-01-21 16:58] LABS: Basophils Percent Auto 0.5 % (0.2-2.0); Eosinophils Percent Auto 0.5 % (0.9-7.0); Hematocrit 42.5 % (36.0-48.0); Hemoglobin 13.8 g/dL (12.0-16.0); Immature Granulocytes Abs Auto 0.01 10^3/uL (0.00-0.03); Immature Granulocytes Pct Auto 0.1 % (0.0-0.5); Lymphocytes Absolute Auto 2.8 10^3/uL (1.2-3.8); Lymphocytes Percent Auto 33.9 % (20.5-60.0); Mean Corpuscular HGB Conc 32.5 g/dL (29.9-35.2); Mean Corpuscular Volume 86.4 fL (81.0-99.0); Monocytes Absolute Auto 0.6 10^3/uL (0.3-0.8); Monocytes Percent Auto 6.8 % (1.7-12.0); Neutrophils Absolute Auto 4.8 10^3/uL (1.4-6.5); Neutrophils Percent Auto 58.2 % (43.0-75.0); Platelet Count 307 10^3/uL (150-450); Red Blood Count 4.92 10^6/uL (4.20-5.40); Red Cell Distribution Width 12.5 % (11.0-15.0); White Blood Count 8.2 10^3/uL (4.0-11.0)
[2025-01-21 17:04] LABS: Bilirubin Urine NEGATIVE (NEGATIVE); Blood Urine MODERATE (NEGATIVE); Clarity Urine CLOUDY (CLEAR); Color Urine LT. YELLOW (YELLOW); Glucose Urine UA NEGATIVE (NEGATIVE); Ketones Urine NEGATIVE (NEGATIVE); Leukocyte Esterase Urine LARGE (NEGATIVE); Nitrite Urine POSITIVE (NEGATIVE); Protein Urine TRACE mg/dL (NEG/TRACE); Urobilinogen Urine 0.2 EU/dL (0.2-1.0); pH Urine 6.5 (5.0-9.0)
[2025-01-21 17:10] LABS: HCG Qualitative NEGATIVE (NEGATIVE); Internal Control Within Normal Limits
[2025-01-21 17:12] LABS: Alanine Aminotransferase 44 U/L (14-59); Albumin Level 3.9 g/dL (3.4-5.0); Alkaline Phosphatase 74 U/L (46-116); Anion Gap 7.5; Aspartate Amino Transferase 20 U/L (15-37); BUN Creatinine Ratio 7.3; Bilirubin Total 0.4 mg/dL (0.2-1.0); Calcium 9.1 mg/dL (8.5-10.1); Carbon Dioxide 30.8 mmol/L (21.0-32.0); Chloride 104 mmol/L (98-107); Estimated GFR (African America >60 (>=60 mL/min/1.73m^2); Estimated GFR (Non-African Ame >60 (>=60 mL/min/1.73m^2); Globulin 3.9 g/dL; Glucose 90 mg/dL (74-106); Potassium 3.3 mmol/L (3.5-5.1); Sodium 139 mmol/L (136-145); Total Protein 7.8 g/dL (6.4-8.2)
[2025-01-21 17:14] LABS: Lactate/Lactic Acid 1.3 mmol/L (0.4-2.0)
[2025-01-21 17:19] LABS: Bacteria Urine LARGE #/HPF (NONE SEEN); Cast Seen? NONE SEEN #/LPF (NONE SEEN); Crystals Seen? None Seen #/HPF (None Seen); Mucus Urine NONE SEEN (NONE SEEN); Squamous Epithelial Cell Urine FEW #/LPF (NONE/RARE); Urine Culture Indicated YES-FRMC; WBC Urine 50-75 #/HPF (NONE SEEN)
[2025-01-21] MEDS: CEFTRIAXONE 2,000 MG in 0.9 % SODIUM CHLORIDE 100 ML 200 MG IV (18:46)
[2025-01-21] MEDS: MORPHINE SULFATE 4 MG/ML VIAL IV ×2 (18:47→20:33)
[2025-01-21 19:16] VITALS: BP 130/93; PULSE 88; O2SAT 98
== END 2025-01-21 22:00 | disposition short-term general hospital (02) ==
PROVIDERS: Physician Assistant; Emergency Provider Emergency Medicine; PCP Family Medicine
DX: N39.0 Urinary tract infection, site not specified (principal); N20.1 Calculus of ureter; R10.32 Left lower quadrant pain; Z98.890 Other specified postprocedural states; R30.0 Dysuria; Z90.710 Acquired absence of both cervix and uterus; Z90.49 Acquired absence of other specified parts of digestive tract; R10.9 Unspecified abdominal pain
CPT/HCPCS: 36415; 74176; 80053; 81001; 83605; 84703; 85025; 87086; 87150; 87186; 96365; 96375; 96376; 99285; J0696; J1171; J1885; J2270; J2405

== ENCOUNTER 2025-03-28 06:45 | Outpatient (OUT) | payer OTHER, SELFPAY ==
--- OUTSIDE RECORDS SUMMARY | 2024-05-09 04:30 | XMS_ITS ---
Author Organization [facility] Serv es Address [address] [place] [address] Care Team Providers Care Sole Scraper Name Role Phone Iván Puckett Primary Care Provider [phone] Dulce Maria Grey Unavailable [phone] REASON FOR VISIT PROPHY Encounters Encounter Location Date Provider Diagnosis [place] [address] [address] 05/09/2024 Dulce Maria Matthews Plan Of Treatment No Information Progress Notes * CORI BARRIGA LDOB: 1 (34 yo F)Acc No.[id number]:05/09/2024 Patient: Connor QUIROZ CORI Boogie Provider: Ladonna Baugh :1990 A ge:33 Y S ex:Female Date:05/09/2024 [facility] [facility] Pcp:Iván Puckett Subjective: * Chief Complaints: * 1 . PROPHY. * Medical History: Objective: * Vitals: Assessment: Plan: * Treatment: * Images: * Electronic signature of Karsisa Matthews on 03/28/2025 at 06:49 AM EDT Sign off status: Pending * Provider: Ladonna Baugh Date: 05/09/2024 Generated for Printi ng/Faxing/eTransmitting on: 0 03/28/2025 06:49 AM EDT
--- OUTSIDE RECORDS SUMMARY | 2025-03-16 10:40 | XMS_ITS ---
Author Organization [facility] in [place] Address [address] [place] [address] Care Team Providers Care Emery Wheel Molder Name Role Phone Kendrick Das Primary Care Provider [phone] Adonis Sanchez Unavailable [phone] Allergies No Known Allergies Results Component Value Reference Range Notes UA DIP NONAUTO WO MICRO (810 02) - IN OFFICE Reviewed date:03/16/2025 03:01:21 PM Interpretation: Performing Lab: Notes/Report: COLOR yellow CLARITY cloudy GLUCOSE neg BLOOD 1+ PROTEIN 1+ NITRITE positive LEUKOCYTE ESTERASE 3+ REASON FOR VISIT f/u ureteroscopy oren 01/26 Medications Medication SIG (Take, Route, Frequency, Duration) Notes Start Date End Date Status Meloxicam 15 MG 1 tablet Orally Once a day for 30 days 03/15/2025 Not-Taking Methenamine Hippurate 1 GM 1 tablet Orally Twice a day for 30 days 01/24/2025 Active Sulfamethoxazole-Trimetho prim 800-160 MG 1 tablet Orally bid for 3 days 03/16/2025 Active Flomax Not-Taking tiZANidine HCl 4 MG 2 tabs Orally qhs fo r 30 days 03/15/2025 Not-Taking Ondansetron 4 MG 1 tablet on the tong ue and allow to dissolve Orally qid 01/23/2025 Not-Taking Promethazine HCl 25 MG 1 tablet as neede d Orally q6h for 5 days 01/23/2025 Not-Taking Social History Tobacco Use: Social History Observation Description Date Details (start date - stop date) Never Smoker NA - NA Tobacco Use/Smoking Question Answer Notes Patient is a nonsmoker AUDIT-C (Standard) Question Answer Notes Did you have a drink contain ing alcohol in the past year? Yes How often did you have a dri nk containing alcohol in the past year? Never (0 point) How many drinks did you have on a typical day when you were drinking in the past year? 1 or 2 drinks (0 point) How often did you have six o r more drinks on one occasion in the past year? Less than monthly (1 point) Points 1 Interpretation Negative Vital Signs Weight 194 lbs 03/16/2025 Height 66 in 03/16/2025 BMI 31.31 kg/m2 03/16/2025 Encounters Encounter Location Date Provider Diagnosis Urology [facility] [address] [place] [address] 03/16/2025 Adonis Sanchez Dysuria R30.0 and UT I (urinary tract infection), uncomplicated N39.0 Assessments Encounter Date Diagnosis (ICD Code) Assessment Notes Treatment Notes Treatment Clinical Notes Section Notes 03/16/2025 Dysuria (ICD-10 - R30.0) 03/16/2025 UTI (urinary tract infection), uncomplicated (ICD-10 - N39.0) 03/16/2025 Other Cont methenaine Urine for culture Bactrim called in. Plan Of Treatment Medication Medication Name Sig Start Date Stop Date Notes Sulfamethoxazole-Trimethopri m 800-160 MG 1 tablet Orally bid for 3 days 03/16/2025 Treatment Notes Assessment Notes Other Cont methenaine Urine for culture Bactrim called in. Pending Test Test Name Order Date CULTURE, URINE w SENSITIVITY 03/16/2025 Next Appt Details Follow Up: 6 Months, Reason: Provider Name:Kendrick Das, 10:00:00 AM, [address] [place], [address], Provider Name:Adonis Sanchez , 09/21/2025 01:50:00 PM, [address] [place], [address], Progress Notes * Diana BEAVER LDOB: [birth year] (34 yo F)Acc No.[id number]:03/16/2025 Patient: Diana RATLIFF Provider: Ross Sanchez MD :1990 A ge:34 Y S ex:Female Date:03/16/2025 Address:[address] [place] [address], [id number] Pcp:Kendrick Das Check In:02:15 PM ESTCheck O ut:03:18 PM EST Subjective: * Chief Complaints: * F /u ureteroscopy oren st v's 01/26 * HPI: U rology: We see Diana for recurrent UTIs dating back to her childhood, and recurrent kidney stones requiring several interventions, including lithotripsy and stents. Stones are CaOxylate per her. S he does have an atrophic left kidney per CT report. She has bilateral now extracting kidney stones per CT report. H er symptoms of UTI are flank, pain and fever. Symptoms are always on the left. We proceeded with VCUG and this showed NO reflux. Renogram showed 60/40 split kidney function. She then had a bilateral URS in January 2025 and all stones were treated. For recurrent UTIs she has been taking methenamine. * ROS: G eneral/Constitutional: Fever d enies. W eight loss d enies. F atigue or Weakness d enies. G enitourinary: Incontinence d enies. F requent urination d enies.?Painful urination b urning,admits. B lood in Urine d enies. 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 Modified On:03/19/2023 Status:confirmed I80.9 Superficial thrombop hlebitis Modified On:03/19/2023 Status:confirmed R22.0 Mass of scalp Modified On:03/19/2023 Status:confirmed G56.21 Impingement of right ulnar nerve Modified On:03/19/2023 Status:confirmed N20.0 Kidney stone on righ t side Modified On:03/19/2023 Status:confirmed N85.4 Retroflexion of uter us Modified On:03/19/2023 Status:confirmed N13.5 Obstruction of urete r, unspecified laterality Modified On:03/19/2023 Status:confirmed M79.10 Myalgia, unspecified site Modified On:03/19/2023 Status:confirmed F31.9 Bipolar disorder, un specified Modified On:03/06/2023 Status:confirmed I10 Essential (primary) hypertension Modified On:03/06/2023 Status:confirmed G89.29 Other chronic pain Modified On:03/06/2023 Status:confirmed M54.50 Low back pain, unspe cified Modified On:03/06/2023 Status:confirmed G47.00 Insomnia, unspecifie d Modified On:03/06/2023 Status:confirmed F41.9 Anxiety disorder, un specified Modified On:03/06/2023 Status:confirmed F32.A Depression, unspecif ied Modified On:03/06/2023 Status:confirmed 535.50 Gastritis and duoden itis Modified On:03/06/2023 Status:confirmed K29.70 Gastritis Modified On:03/06/2023 Status:confirmed N20.0 Calculus of kidney Modified On:04/10/2023 Status:confirmed N20.0 Nephrolithiasis Modified On:04/19/2024 Status:confirmed G56.22 Ulnar nerve compress ion, left Modified On:04/19/2024 Status:confirmed G56.21 Ulnar nerve compress ion, right Modified On:04/19/2024 Status:confirmed M62.838 Muscle spasm Modified On:07/28/2024/U Status:confirmed E83.42 Hypomagnesemia Modified On:09/07/2024/U Status:confirmed K21.9 GERD (gastroesophage al reflux disease) Modified On:09/07/2024/U Status:confirmed N39.0 Acute UTI Modified On:10/06/2024/U Status:confirmed N13.70 VUR (vesicoureteric reflux) Modified On:11/24/2024/U Status:confirmed * Medical History: * Surgical History: C holecystectomy Right Renal Calculus 05/24/2020Cystoscopy, Left retrograde pyelogram, ureteral stent- Dr. Souza's Hysterectomy, Bilat Salpingectomy- Bernie 05/06/23urethral dilation Right laser lithotripsy - Dr Villa 11/2021ureteral stent placement on Left side 01/22/25Cystoscopy, Holmium Laser Lithotripsy, Lt stent replacement, Rt stent placement- Dr Desai 01/27/25 * Hospitalization/Major Diagno stic Procedure: [facility] for kidney stones and stents * Family History: F ather: alive, hypothyroidism. M other: alive, diagnosed with Diabetes mellitus without mention of complication, type II or unspecified type, not stated as uncontrolled, Unspecified essential hypertension. B rother(s): alive, diagnosed with Kidney stones. S ister(s): alive. 1 brother(s) , 2 sister(s) . 1 son(s) , 3 daughter(s) . . Kidney stones. * Social History: T obacco Use: T obacco Use/Smoking P atient is a n onsmoker D rug/Alcohol: A RAFIA-C (Standard) D id you have a drink containing alcohol in the past year? Y es H ow often did you have a drink containing alcohol in the past year? N ever (0 point) H ow many drinks did you have on a typical day when you were drinking in the past year? 1 or 2 drinks (0 point) H ow often did you have six or more drinks on one occasion in the past year? L ess than monthly (1 point) P oints 1 I nterpretation N egative D rugs/Alcohol: C affeine I ntake: 2-3 cups per day .. * Medications: T akingMethenamine Hippurate 1 GM Tablet 1 tablet Orally Twice a day Taking Methenamine Hippurate 1 GM Tablet 1 tablet Orally Twice a day Not-Taking/PRNFlomax Meloxicam 15 MG Tablet 1 tablet Orally Once a day Ondansetron 4 MG Tablet Disintegrating 1 tablet on the tongue and allow to dissolve Orally qid Promethazine HCl 25 MG Tablet 1 tablet as needed Orally q6h tiZANidine HCl 4 MG Tablet 2 tabs Orally qhs Medication List reviewed and reconciled with the patientNot-Taking/PRN Flomax Not-Taking/PRN Meloxicam 15 MG Tablet 1 tablet Orally Once a day Not-Taking/PRN Ondansetron 4 MG Tablet Disintegrating 1 tablet on the tongue and allow to dissolve Orally qid Not-Taking/PRN Promethazine HCl 25 MG Tablet 1 tablet as needed Orally q6h Not-Taking/PRN tiZANidine HCl 4 MG Tablet 2 tabs Orally qhs Medication List reviewed and reconciled with the patient * Allergies: N .K.D.A.no[Allergies Verified] Objective: * Vitals: W t:194lbs, Ht: 66 in, BMI:31.31Index, Ht-cm: 167.64 cm, Wt-k kg. Assessment: * Assessment: 1. D ysuria - R30.0 (Primary) 2 . U TI (urinary tract infection), uncomplicated - N39.0 Plan: * Treatment: 2. O thers Notes: Cont methenaine Urine for culture Bactrim called in. * Labs: * L ab: UA DIP NONAUTO WO MICRO (97273) - IN OFFICE (Collection Date & Time - 03/16/2025) Value Reference Range C OLOR yellow * C LARITY cloudy * G LUCOSE neg * B LOOD 1+ * P ROTEIN 1+ * N ITRITE positive * L EUKOCYTE ESTERASE 3+ * Procedure Codes: 8 1002 URINALYSIS WO MICRO * Follow Up: 6 Months * * Sign off status: Completed Visit Status: C HK (Check Out) true * Provider: Ross Sanchez MD Date: 0 03/16/2025 Generated for Meenakshi krishnan/Neisha/Vamshiitting on: 0 03/28/2025 06:49 AM EDT
--- OUTSIDE RECORDS SUMMARY | 2025-03-16 11:02 | XMS_ITS ---
Author Organization [facility] in [place] Address [address] [place] [address] Care Team Providers Care Lithographic Stripper Name Role Phone Thiago Kendrick Primary Care Provider [phone] Adonis Daly [phone] REASON FOR VISIT 03/16 urine culture Medications Medication SIG (Take, Route, Frequency, Duration) Notes Start Date End Date Status Nitrofurantoin Monohyd Macro 100 MG 1 capsule with food Orally every 12 hrs for 7 days 03/20/2025 Active Encounters Encounter Location Date Provider Diagnosis Urology [facility] [address] [place] [address] 03/16/2025 Adonis Sanchez Urinary tract infection, site not specified N39.0 Assessments Encounter Date Diagnosis (ICD Code) Assessment Notes Treatment Notes Treatment Clinical Notes Section Notes 03/16/2025 Urinary tract infection, site not specified (ICD-10 - N39.0) Plan Of Treatment Medication Medication Name Sig Start Date Stop Date Notes Nitrofurantoin Monohyd Macro 100 MG 1 capsule with food Orally every 12 hrs for 7 days 03/20/2025 Next Appt Details Provider Name:Kendrick Das, 10:00:00 AM, [address] [place], [address], Provider Name:Adonis Sanchez , 09/21/2025 01:50:00 PM, [address] [facility], [place], [address], Progress Notes * Diana BEAVER LDOB: 1 (34 yo F)Acc No.[id number]:03/16/2025 Patient: Diana RATLIFF :1990 A ge:34 Y S ex:Female Address:[address] [place] [address], [address] * Refills Start Nitrofurantoin Monohyd Macro Capsule, 100 MG, Orally, 14, 1 capsule with food, every 12 hrs, 7 days, Refills=0 Subjective: * Chief Complaints: * urine culture * Medical History: * Surgical History: * Hospitalization/Major Diagno stic Procedure: * Medications: Objective: * Vitals: * Physical Examination: Assessment: * Assessment: 1. U rinary tract infection, site not specified - N39.0 (Primary) Plan: * Treatment: * Procedure Codes: * true * Date: Generated for Meenakshi krishnan/Neisha/Lindasmitting on: 0 03/28/2025 06:49 AM EDT
--- OUTSIDE RECORDS SUMMARY | 2025-03-23 10:00 | XMS_ITS ---
Author Organization [facility] [place] Address [address] [place] [address] Care Team Providers Care Pharmacy Buyer Name Role Phone Kendrick Das Primary Care Provider Allergies No Known Allergies REASON FOR VISIT severe low back pain- has been told in the past her sacroiliac joint in deteriorated, Also has painin the neck area as well Medications Medication SIG (Take, Route, Frequency, Duration) Notes Start Date End Date Status Meloxicam 15 MG 1 tablet Orally Once a day for 30 days 03/15/2025 Active Ondansetron 4 MG 1 tablet on the tong ue and allow to dissolve Orally qid PRN 01/23/2025 Active Nitrofurantoin Monohyd Macro 100 MG 1 capsule with food Orally every 12 hrs for 7 days 03/20/2025 Active Methenamine Hippurate 1 GM 1 tablet Oral ly Twice a day for 30 days 01/24/2025 Active Promethazine HCl 25 MG 1 tablet as neede d Orally q6h for 5 days PRN 01/23/2025 Active tiZANidine HCl 4 MG 2 tabs Orally qhs fo r 30 days 03/15/2025 Active Social History Tobacco Use: Social History Observation Description Date Details (start date - stop date) Never Smoker NA - NA Tobacco Use/Smoking Question Answer Notes Patient is a nonsmoker Problems Problem Type SNOMED Code ICD Code Onset Dates Problem Status W/U Status Risk Notes Problem Lumbar radiculopathy (M54.16) Active confirmed Vital Signs Weight 192.4 lbs 03/23/2025 Height 66 in 03/23/2025 Blood pressure systolic 118 mm Hg 03/23/20 25 Blood pressure diastolic 86 mm Hg 025 BMI 31.05 kg/m2 03/23/2025 Encounters Encounter Location Date Provider Diagnosis [address] [address] 03/23/2025 Kendrick Das Lumbar radiculopathy M54.16 Assessments Encounter Date Diagnosis (ICD Code) Assessment Notes Treatment Notes Treatment Clinical Notes Section Notes 03/23/2025 Lumbar radiculopathy (ICD-10 - M54.16) 03/23/2025 Other Recommended to rest and use a heating pad on the area. Take NSAIDs for pain as needed Plan Of Treatment Treatment Notes Assessment Notes Other Recommended to rest and use a heating pad on the area. Take NSAIDs for pain as needed Pending Test Test Name Order Date MRI LSPINE WO CON 03/23/2025 XR LSPINE MIN 4 VIEWS 03/23/2025 XR sacrum coccyx min 2V 03/23/2025 Next Appt Details Provider Name:Kendrick Das, 10:00:00 AM, [address] [place], [address], Provider Name:Adonis Sanchez , 09/21/2025 01:50:00 PM, [address] [place] [address], [address], Medications Administered Medication Instructions Date of Administration Dosage Notes Ketorolac Tromethamine 03/23/2025 60 mg Triamcinolone 40 mg/ml 03/23/2025 120 mg Progress Notes * Diana BEAVER LDOB: 1 (34 yo F)Acc No.[id number]:03/23/2025 UNLOCKED PROGRESS NOTE Progress Note Patient: Connor GABRIELLA Diana Hyman Provider: Walter Das ([facility])MD :1990 A ge:34 Y S ex:Female Date:03/23/2025 Address:[address] [place], [place] [address] Check In:01:43 PM ESTCheck O ut:02:44 PM EST Subjective: * Chief Complaints: * 1 . Severe low back pain- has been told in the past her sacroiliac joint in deteriorated. 2. Also has pain in the neck area as well. * HPI: G eneral: Severe low back pain - no injury - - has had imaging in the past - SI joint with mod degeneration - usually getting left sided greg into legs. B ack Pain: The patient complains of -. The symptoms have been present for 1-2 days. The patient believes symptoms are injury related No. The symptoms are mild. Symptomatic treatment has included heating pad, stretching. Associated symptoms include None. * ROS: G eneral/Constitutional: Lightheadedness d enies. C hange in appetite d enies. W eight Change d enies. C ardiovascular: Irregular heartbeat d enies. S welling in hands/feet?denies. R espiratory: Shortness of breath d enies. S hortness of breath with exertion d enies. W heezing d enies. M usculoskeletal: Comments S ee HPI for details. N eurologic: Dizziness d enies. F ainting d enies. H eadache?denies. * Medical History: K idney Stone, Right, Ulnar Nerve Entrapment, left and right, Retroflexion of uterus, Obstruction of ureter, unspecified laterality, Sprain of calcaneofibular ligament of left ankle, initial encounter, Myalgia, unspecified site, Mass of scalp, Pyelonephritis, Streptococcal pharyngitis, Superficial thrombophlebitis, Kidney stones, Impingement of right ulnar nerve, Entrapment of left ulnar nerve, Depression , Anxiety. * Surgical History: C holecystectomy , Right Renal Calculus 05/24/2020, Cystoscopy, Left retrograde pyelogram, ureteral stent- Dr. Souza'peri , Hysterectomy, Bilat Salpingectomy- Bernie 05/06/23, urethral dilation , Right laser lithotripsy - Dr Villa 11/2021, ureteral stent placement on Left side 01/22/25, Cystoscopy, Holmium Laser Lithotripsy, Lt stent replacement, Rt stent placement- Dr Desai 01/27/25. * Hospitalization/Major Diagno stic Procedure: Connor gold for kidney stones and stents . * Family History: F ather: alive, hypothyroidism. [...] Use/Smoking P atient is a n onsmoker * Medications: T aking Meloxicam 15 MG Tablet 1 tablet Orally Once a day , Taking Methenamine Hippurate 1 GM Tablet 1 tablet Orally Twice a day , Taking Nitrofurantoin Monohyd Macro 100 MG Capsule 1 capsule with food Orally every 12 hrs , Taking Ondansetron 4 MG Tablet Disintegrating 1 tablet on the tongue and allow to dissolve Orally qid , Notes to Pharmacist: PRN, Taking Promethazine HCl 25 MG Tablet 1 tablet as needed Orally q6h , Notes to Pharmacist: PRN, Taking tiZANidine HCl 4 MG Tablet 2 tabs Orally qhs , Discontinued Flomax , Discontinued Sulfamethoxazole-Trimethoprim 800-160 MG Tablet 1 tablet Orally bid , Medication List reviewed and reconciled with the patient * Allergies: N .K.D.A. Objective: * Vitals: W t:192.4lbs, Ht: 66 in, BP:118/86mm Hg, BMI:31.05Index, Ht-cm: 167.64 cm, Wt-k.27 kg. * Examination: G eneral Examination: GENERAL APPEARANCE: i n no acute distress, well developed, well nourished. LUNGS: clear to auscultation bilaterally. CARDIO: S 1, S2 normal, no murmurs, rubs, gallops. MUSCULOSKELETAL: p oor rom in back due to pain adn + SLR on the left with sl diminishee patell;ar reflex. EXTREMITIES: no clubbing, cyanosis, or edema. NEUROLOGIC: alert, oriented to time, place, & person.? Assessment: * Assessment: 1. L umbar radiculopathy - M54.16 (Primary) Plan: * Treatment: 2. O thers Notes: Recommended to rest and use a heating pad on the area. Take NSAIDs for pain as needed ? * Therapeutic Injections: Triamcinolone 40 mg/ml : 120 mg (Route: Intramuscular) given by Hilary Garcia SA on left deltoid (Lumbar radiculopathy) Ketorolac Tromethamine : 60 mg (Route: Intramuscular) given by Hilary Garcia SA on right deltoid (Lumbar radiculopathy) * Procedure Codes: 9 6372 THERAP.INJ. OF MED. INTRAMUSCULAR OR SUBCUTANEOUS, J3301 TMC ACET,PER 10MG., Units: 12.00 , J1885 TORADOL, PER 15 MG, Units: 4.00 , Modifiers: JZ * Preventive Medicine: Screenings/Counseling: B [place] ACTION PLAN Above Normal BMI Follow-up D ietary management education, guidance, and counseling * * Electronic signature of Kendrick Das MD, [id number] on 03/28/2025 at 06:49 AM EDT Sign off status: Pending Visit Status: C HK (Check Out) * Provider: Walter Das ([facility]C)MD Date: 0 03/23/2025 Generated for Meenakshi krishnan/Neisha/eTransmitting on: 0 03/28/2025 06:49 AM EDT History and Physical Notes * HPI (History of Present Illness) Category Sub-Category Detail Notes Category Not es General Severe low back pain - no injury - - has had imaging in the past - SI joint with mod degeneration - usually getting left sided greg into legs Examination Category Sub-Category Detail Notes Category Not es General Examination GENERAL APPEARANCE: in no ac hernan distress, well developed, well nourished CARDIO: S1, S2 normal, no mu rmurs, rubs, gallops LUNGS: clear to auscultatio n bilaterally NEUROLOGIC: alert, oriented to t leonid, place, & person EXTREMITIES: no clubbing, cyanosi s, or edema MUSCULOSKELETAL: poor rom in back due to pain adn + SLR on the left with sl diminishee patell;ar reflex
--- NOTE | 2025-03-28 | XR_ITS ---
The [address] [address] Patient Name: CORI BARRIGA MRN: [id number] date: 1990 Sex: F Assigned Patient Location: [facility] Current Patient Location: [facility] Accession/Order Number: [id number] Exam Date: 03/28/2025 08:29 Report Date: 03/28/2025 08:35 At the request of: DOMINGO SNYDER MD Procedure: XR lumbar spine min 4V CLINICAL HISTORY: M54.16: Pain radiating down the left leg SACRUM AND COCCYX -3 views COMPARISON: CT 01/21/2025 Lateral as well as AP views in neutral and downward projection were obtained. No fracture or displacement is identified. The SI joints and sacral foramen appear intact. There is mild sclerosis at the SI joints. No soft tissue abnormalities are seen. XR/XR sacrum coccyx min 2V IMPRESSION: NO ACUTE BONY FINDINGS. LUMBAR SPINE - 4 views COMPARISON: CT 01/21/2025 AP, lateral and both oblique views were obtained. No fracture or displacement is identified. There is no disproportionate disc space narrowing. There is minimal endplate spurring and minor facet sclerosis. No pars defects are seen. Bilateral nephrolithiasis is noted. No other paraspinal soft tissue abnormalities are visualized. IMPRESSION: NO ACUTE BONY FINDINGS. INCIDENTAL NEPHROLITHIASIS. Impression dictated by: Imani Celis M.D. 03/28/2025 8:35 AM Dictation Location: [place] [address] Electronically authenticated by: [id number] Y Date: 03/28/2025 08:35
--- OUTSIDE RECORDS SUMMARY | 2025-03-28 06:48 | XMS_ITS | Encounter Summary ---
Author Organization [facility] Address [address] [place] [address] Care Team Providers Care Top Dyeing Machine Loader Name Role Phone Ignacio Das MD Primary Care Provider [phone] Encounter Details Date Type Department Care Team (Late Contact Info) Description 12/29/2023 Clinisync Result Encounter [facility] Unsolicited Jefferson Gibbs, [address] [place] [address] Social History Tobacco Use Types Packs/Day Years Used Date Smoking Tobacco: Never Alcohol Use Standard Drinks/Week Comments Never 0 (1 standard drink = 0.6 oz pur e alcohol) Comments No Sex and Gender Information Value Date Recorded Sex Assigned at Not on file Legal Sex Female 11:20 PM EDT Gender Identity Not on file Sexual Orientation Not on file documented as of this encounter Plan of Treatment Upcoming Encounters Date Type Department Care Team (Late Contact Info) Description 04/05/2025 1:00 PM EDT Office Visit [facility] [address] [place] [address] [place] [address] 04/10/2025 9:50 AM EDT Office Visit [facility] [address] [place] [id number] Alejandra Leiva MD [address] [place] [address] documented as of this encounter Procedures Procedure Name Priority Date/Time Associated Diagnosis Comments US GUIDED BREAST BIOPSY LT 12/29/2023 8:24 AM EDT documented in this encounter Results * US GUIDED BREAST BIOPSY LT (12/29/2023 8:24 AM EDT) Anatomical Region Laterality Modality Radiographic Megan ging 12/29/2023 8:24 AM EDT Narrative 12/29/2023 8:27 [place] [address] Ultrasound Report Signed Patient: DIANA BEAVER MR#: [id number] : 1990 Acct:[id number] Age/Sex: 33 / F ADM Date: 12/29/23 Loc: US Attending Dr: Jefferson Gibbs D.O. Ordering Physician: Jefferson Gibbs D.O. Date of Service: 12/29/23 Procedure(s): US breast vac bx w/ clip LT Accession Number(s): [id number] cc: Jefferson Gibbs D.O.; Ignacio Das M.D. [place] [id number] Patient Name: DIANA BEAVER MRN: [id number] date: 1990 Sex: F Assigned Patient Location: Current Patient Location: Accession/Order Number: [id number] Exam Date: 12/29/2023 07:20 Report Date: 12/29/2023 08:24 At the request of: JEFFERSON GIBBS Procedure: US breast vac bx w/ clip LT EXAMINATION: US breast vac bx w/ clip LT HISTORY: Left Breast Mass COMPARISON: No relevant comparison available. TECHNIQUE: After obtaining informed consent, ultrasound-guided fine needle aspiration was performed in the usual sterile manner. FINDINGS: IMAGING: Ultrasound. BIOPSY NEEDLE: 13-gauge vacuum-assisted mammotome LOCATION: 3.6 cm heterogeneous left breast 6:00 mass SPECIMEN TYPE: 5 core samples LOCAL ANESTHETIC: 2 cc 1% buffered lidocaine superficial. 6 cc 1% buffered lidocaine with epinephrine deep COMPLICATIONS: None. LABORATORY: Samples sent to pathology OTHER: Negative. PATHOLOGY: Pending. An addendum will be added when results are available. US/US breast vac bx w/ clip LT IMPRESSION: 1. Uneventful ultrasound vacuum assisted core biopsy left breast mass 2. Pathology results are pending. Electronically authenticated by: GLEN GRAFF Date: 12/29/2023 08:24 Dictated By: Glen Graff M.D. Signed By: 12/29/23826 DD/ 3 TD/TT: Research/Program Director: Procedure Note Radiology, Radiologist, MD - 12/29/2023 [place] [address] Ultrasound Report Signed Patient: DIANA BEAVER LMR#: [id number] : 1990Acct:[id number] Age/Sex: 33 / FADM Date: 12/29/23 Loc: US Attending Dr: Jefferson Gibbs D.O. Ordering Physician: Jefferson Gibbs D.O. Date of Service: 12/29/23 Procedure(s): US breast vac bx w/ clip LT Accession Number(s): [id number] cc: Jefferson Gibbs D.O.; Ignacio Das M.D. The [place] [id number] Patient Name: DIANA BEAVER MRN: [id number] date: 1990 Sex: F Assigned Patient Location: US Current Patient Location: US Accession/Order Number: [id number] Exam Date: 12/29/2023 07:20 Report Date: 12/29/2023 08:24 At the request of: JEFFERSON GIBBS Procedure: US breast vac bx w/ clip LT EXAMINATION: US breast vac bx w/ clip LT HISTORY: Left Breast Mass COMPARISON: No relevant comparison available. TECHNIQUE: After obtaining informed consent, ultrasound-guided fine needle aspiration was performed in the usual sterile manner. FINDINGS: IMAGING: Ultrasound. BIOPSY NEEDLE: 13-gauge vacuum-assisted mammotome LOCATION: 3.6 cm heterogeneous left breast 6:00 mass SPECIMEN TYPE: 5 core samples LOCAL ANESTHETIC: 2 cc 1% buffered lidocaine superficial. 6 cc 1% buffered lidocaine with epinephrine deep COMPLICATIONS: None. LABORATORY: Samples sent to pathology OTHER: Negative. PATHOLOGY: Pending. An addendum will be added when results are available. US/US breast vac bx w/ clip LT IMPRESSION: 1. Uneventful ultrasound vacuum assisted core biopsy left breast mass 2. Pathology results are pending. Electronically authenticated by: GLEN GRAFF Date: 12/29/2023 08:24 Dictated By: Glen Graff M.D. Signed By:12/29/23826 DD/ 3 TD/TT: Research/Program Director: us Jefferson Bernie DO IMG XR PROCEDURES Final Result documented in this encounter Visit Diagnoses Not on filedocumented in this encounter Care Teams Top Dyeing Machine Loader Relationship Specialty Start Date End Date Ignacio Das MD PCP - General Family Medicine 04/13/23 documented as of this encounter
--- OUTSIDE RECORDS SUMMARY | 2025-03-28 06:49 | XMS_ITS | Clinical Summary ---
Author Organization [employer] Address [id number] [address] [place] [address] Care Team Providers Care Licensing Services Clerk Name Role Phone Ignacio Das MD Primary Care Provider [phone] Allergies No known active allergies Medications prenat.vits,rodger,min -iron-folic ( VITAMIN) tablet Take 1 tablet by mouth daily. Active ondansetron ODT (ZOFRAN-ODT) 4 mg disintegrating tablet Dissolve 4 mg on tongue every 6 (six) hours as needed for nausea or vomiting. Active citalopram (CeleXA) 20 mg tablet Take 20 mg by mouth daily. Active promethazine (PHENERGAN) 12.5 mg tablet Take 12.5 mg by mouth every 6 (six) hours as needed for nausea or vomiting. 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 Intrauterine 02/18/2018 Well woman exam with routine gynecological exam 01/22/2018 Myopia 05/05/2017 Astigmatism 05/05/2017 Immunizations Immunization Administration Dates Next Due Influenza, Injectable, quadrivalent (PF) 018 Tdap 08/09/2018 Family History Medical History Relation Name Comments Hyperlipidemia Father Thyroid disease Father Cataracts Maternal Grandmother Diabetes Maternal Grandmother Thyroid disease Maternal Grandmother Tuberculosis Maternal Grandmother Hypertension Mother Heart disease Paternal Grandfather Hyperlipidemia Paternal Grandmother Glaucoma Neg Hx Macular degeneration Neg Hx Relation Name Status Comments Brother Alive Father Alive Maternal Grandfather Maternal Grandmother Alive Mother Alive Paternal Grandfather Paternal Grandmother Sister Alive Social History Tobacco Use Types Packs/Day Years Used Date Smoking Tobacco: Never Smokeless Tobacco: Never Alcohol Use Standard Drinks/Week Comments No 0 (1 standard drink = 0.6 oz pur e alcohol) Childcare Answer Date Recorded Childcare Unknown 03/30/2019 Employment Answer Date Recorded Employment Unknown 03/30/2019 Purpose - Life Answer Date Recorded Purpose and direction in life Unknown Comments No Sex and Gender Information Value Date Recorded Sex Assigned at Not on file Legal Sex Female 11:49 AM EDT Gender Identity Not on file Sexual Orientation Not on file Last Filed Vital Signs Vital Sign Reading Time Taken Comments Blood Pressure 91/66 09/17/2020 1:33 PM EST Pulse 116 09/17/2020 1:33 PM EST Temperature 36.5 C (97.7 F) 07/29/2019 7:21 AM EDT Respiratory Rate 18 07/29/2019 7:21 AM EDT Oxygen Saturation 100% 07/29/2019 8:49 AM EDT Inhaled Oxygen Concentration - - Weight 104.5 kg (230 lb 6.1 oz) 09/17/2020 1:33 PM EST Height 167.6 cm (5' 6 ) 07/29/2019 7:21 AM EDT Body Mass Index 37.18 07/29/2019 7:21 AM EDT Plan of Treatment Health Maintenance Due Date Last Done Comments Depression Screening 2003 Tobacco Screening 2003 Adult BMI Screening 2009 Pap Smear 01/22/2021 01/22/2018 Influenza Vaccine 06/19/2025 08/01/2019, , 08/22/2009 DTaP,Tdap and Td Vaccines (6 - Td or Tdap) 08/09/2028 08/09/2018, 04/10/1993, 03/26/1992, Additional history exists Medical Devices Not on file Procedures Procedure Name Priority Date/Time Associated Diagnosis Comments PAP SMEAR Routine 01/22/2018 9:35 AM EDT from Last 3 Months or Most Recently Relevant to Health Maintenance Results * Pap Smear (01/22/2018 9:35 AM EDT) Cervical TP 01/22/2018 9:35 AM EDT 01/22/2018 9:35 AM EDT Narrative COPATH - 02/03/2018 12:11 PM EDT [facility] [address] [place] [address] Gynecologic Cytology Consultation Patient Name: DIANA ENAMORADO : 1990 (Age: 27) Gender: F Taken: 01/22/2018 Reported: 02/03/2018 Physician(s): Yuniel Rosenberg MD [phone]) Copy To: Med. Rec. #: [id number] Acct: # [id number] Final Cytologic Interpretation Cervical (with or without endocervical) ThinPrep: Satisfactory for evaluation. A transformation zone component is present. NEGATIVE FOR INTRAEPITHELIAL LESION OR MALIGNANCY. Shift in greg suggestive of bacterial vaginosis. jja/02/03/2018 Electronically Signed Out By CARON Galeano (ASCP) Date of Last Menstrual Period: 12/25/2017 Other Clinical Conditions: Screening/Routine z01.419 Motion And Time Study Teacher exam wo/abn findings Source of Specimen Cervical (with or without endocervical) ThinPrep Thin Prep Pap (GRINDER HAND) Fee Code(s): G0145 The Pap test is a screening test with an inherent, but low, probability of error. The Pap test is primarily effective for the diagnosis and prevention of squamous cell carcinoma. Regular screening is critical for prevention. ThinPrep liquid-based slides, which meet the Merchandise Coordinator criteria for automated screening, have been screened by the ThinPrep Imaging System (as of 07/05/07) along with an additional manual rescreening by a franchise sales representative and, if indicated, by a pathologist.Yuniel Rosenberg, 02/02/2018 Yuniel Rosenberg DO PATHOLOGY/CYTOLOGY ORDERABL ES Final Result COPATH from Last 3 Months or Most Recently Relevant to Health Maintenance Insurance [employer] Advance Directives * Full Code (Latest Code Status on File) Date Activated Date Inactivated Comments 08/20/2018 12:30 AM 08/20/2018 6:47 PM * Full Code Date Activated Date Inactivated Comments 08/07/2018 9:20 AM 08/14/2018 4:36 PM Care Teams Licensing Services Clerk Relationship Specialty Start Date End Date Ignacio Das MD PCP - General Family Medicine 09/17/20
--- OUTSIDE RECORDS SUMMARY | 2025-03-28 06:49 | XMS_ITS | Patient Health Record ---
Author Organization The [facility] in [place] Address [address] [place] [address] Care Team Providers Care Demo Event Specialist Name Role Phone Kendrick Das Primary Care Provider [phone] Breonna Sanchez Unavailable [phone] Allergies No Known Allergies Results Component Value Reference Range Notes UA DIP NONAUTO WO MICRO (810 02) - IN OFFICE Reviewed date:03/16/2025 03:01:21 PM Interpretation: Performing Lab: Notes/Report: COLOR yellow CLARITY cloudy GLUCOSE neg BLOOD 1+ PROTEIN 1+ NITRITE positive LEUKOCYTE ESTERASE 3+ CBC AUTO DIFF Reviewed date:04/10/2024 03:22:53 PM Interpretation: Performing Lab: Notes/Report: [facility] , White Blood Count 6.5 4.0-11.0 10 3/uL Red Blood Count 4.61 4.20-5.40 10 6/uL Hemoglobin 12.8 12.0-16.0 g/dL Hematocrit 38.1 36.0-48.0 % Mean Corpuscular Volume 82.6 81.0-99.0 fL Mean Corpuscular Hemoglobin 27.8 26.7-34.0 pg Mean Corpuscular HGB Conc 33.6 29.9-35.2 g/dL Red Cell Distribution Width 12.7 11.0-15.0 % Platelet Count 331 150-450 10 3/uL Mean Platelet Volume 9.5 9.5-13.5 fL Neutrophils Percent Auto 55.6 43.0-75.0 % Lymphocytes Percent Auto 34.5 20.5-60.0 % Monocytes Percent Auto 8.4 1.7-12.0 % Eosinophils Percent Auto 0.5 0.9-7.0 % Basophils Percent Auto 0.8 0.2-2.0 % Immature Granulocytes Pct Auto 0.2 0.0-0.5 % Neutrophils Absolute Auto 3.6 1.4-6.5 10 3/uL Lymphocytes Absolute Auto 2.2 1.2-3.8 10 3/uL Monocytes Absolute Auto 0.5 0.3-0.8 10 3/uL Eosinophils Absolute Auto 0.0 0.0-0.7 10 3/uL Basophils Absolute Auto 0.1 0.0-0.1 10 3/uL Immature Granulocytes Abs Auto 0.01 0.00-0.03 10 3/uL Performing Lab: see note ML - [facility] LB Salicylate Reviewed date:04/10/2024 03:22:53 PM Interpretation: Performing Lab: Notes/Report: [facility] , Salicylate <2.8 <=19.9 mg/dL Performing Lab: see note ML - [facility] LB Ethanol Reviewed date:04/10/2024 03:22:53 PM Interpretation: Performing Lab: Notes/Report: [facility] , Ethanol <3 NOTE: 80 mg/dl is the legal limit for a blood alcohol level Performing Lab: see note ML - [facility] LB CBC AUTO DIFF Reviewed date:04/21/2024 12:43:25 PM Interpretation: Performing Lab: Notes/Report: [facility] , White Blood Count 9.5 4.0-11.0 10 3/uL Red Blood Count 4.87 4.20-5.40 10 6/uL Hemoglobin 13.6 12.0-16.0 g/dL Hematocrit 41.1 36.0-48.0 % Mean Corpuscular Volume 84.4 81.0-99.0 fL Mean Corpuscular Hemoglobin 27.9 26.7-34.0 pg Mean Corpuscular HGB Conc 33.1 29.9-35.2 g/dL Red Cell Distribution Width 12.6 11.0-15.0 % Platelet Count 330 150-450 10 3/uL Mean Platelet Volume 9.9 9.5-13.5 fL Neutrophils Percent Auto 58.5 43.0-75.0 % Lymphocytes Percent Auto 32.0 20.5-60.0 % Monocytes Percent Auto 8.6 1.7-12.0 % Eosinophils Percent Auto 0.3 0.9-7.0 % Basophils Percent Auto 0.5 0.2-2.0 % Immature Granulocytes Pct Auto 0.1 0.0-0.5 % Neutrophils Absolute Auto 5.6 1.4-6.5 10 3/uL Lymphocytes Absolute Auto 3.0 1.2-3.8 10 3/uL Monocytes Absolute Auto 0.8 0.3-0.8 10 3/uL Eosinophils Absolute Auto 0.0 0.0-0.7 10 3/uL Basophils Absolute Auto 0.1 0.0-0.1 10 3/uL Immature Granulocytes Abs Auto 0.01 0.00-0.03 10 3/uL Performing Lab: see note ML - [facility] LB LACTATE or LACTIC ACID Reviewed date:04/21/2024 12:43:25 PM Interpretation: Performing Lab: Notes/Report: [facility] , Lactate/Lactic Acid 1.3 0.4-2.0 mmol/L Performing Lab: see note ML - [facility] LB PROF CHEM 8 (BAS METB) Reviewed date:04/21/2024 12:43:25 PM Interpretation: Performing Lab: Notes/Report: [facility] , Sodium 137 136-145 mmol/L Potassium 3.7 3.5-5.1 mmol/L Chloride 102 98-107 mmol/L Carbon Dioxide 27.7 21.0-32.0 mmol/L Anion Gap 11.0 Glucose 115 74-106 mg/dL Blood Urea Nitrogen 8.0 7.0-18.0 mg/dL Creatinine 0.82 0.55-1.02 mg/dL Estimated GFR ( Kyung >60 >=60 Estimated GFR (Non- Shefali >60 >=60 BUN Creatinine Ratio 9.8 Calcium 10.1 8.5-10.1 mg/dL Performing Lab: see note - [facility] LB UA (CLEAN or CATCH) LEAD JAVASCRIPT DEVELOPER or M ICRO IF IND. Reviewed date:04/21/2024 12:43:25 PM Interpretation: Performing Lab: Notes/Report: [facility] , Color Urine LT. YELLOW YELLOW Clarity Urine CLEAR CLEAR Specific [place] Urine 1.015 1.005-1.025 pH Urine 6.5 5.0-9.0 Protein Urine NEGATIVE NEG/TRACE mg/dL Glucose Urine UA NEGATIVE NEGATIVE mg/dL Bilirubin Urine NEGATIVE NEGATIVE Ketones Urine NEGATIVE NEGATIVE mg/dL Blood Urine SMALL NEGATIVE Nitrite Urine NEGATIVE NEGATIVE Urobilinogen Urine 0.2 0.2-1.0 EU/dL Leukocyte Esterase Urine TRACE NEGATIVE Urine Microscopic Indicated YES Performing Lab: see note ML - [facility] LB URINE MICROSCOPIC ONLY Reviewed date:04/21/2024 12:43:25 PM Interpretation: Performing Lab: Notes/Report: [facility] , WBC Urine 2-5 NONE SEEN #/HPF RBC Urine NONE SEEN 0-2 #/HPF Bacteria Urine NONE SEEN NONE SEEN #/HPF Mucus Urine NONE SEEN NONE SEEN Squamous Epithelial Cell Urine MANY NONE/RARE #/LPF Crystals Seen? Seen None Seen #/HPF Calcium Oxalate Crystals Urine FEW Amorphous Sediment Urine MODERATE Cast Seen? NONE SEEN NONE SEEN #/LPF Urine Culture Indicated NO Performing Lab: see note ML - [facility] LB CT abdomen pelvis wo con Reviewed date:04/21/2024 12:43:25 PM Interpretation: Performing Lab: Notes/Report: Source Facility: [place] [address] CT Scan Report Signed Patient: DIANA BARRIGA MR#: [id number] : 1990 Acct:[id number] Age/Sex: 33 / F ADM Date: 04/20/24 Loc: ER Attending Dr: Ordering Physician: Seng Verdin Date of Service: 04/20/24 Procedure(s): CT abdomen pelvis wo con Accession Number(s): [id number] cc: Domingo Das M.D. [place] [address] Patient Name: DIANA BARRIGA MRN: [id number] date: 1990 Sex: F Assigned Patient Location: ER Current Patient Location: ER Accession/Order Number: [id number] Exam Date: 04/20/2024 23:07 Report Date: 04/21/2024 00:29 At the request of: SENG VERDIN Procedure: CT abdomen pelvis wo con EXAM: CT abdomen pelvis wo con HISTORY: left CVA pain. past kidney stones COMPARISON: 02/20/2024 TECHNIQUE: CT of abdomen and pelvis without intravenous contrast. Dose reduction techniques were achieved by using automated exposure control and/or adjustment of mA and/or kV according to patient size and/or use of iterative reconstruction technique. FINDINGS: Limited evaluation of the viscera/organs and vasculature without intravenous contrast. TUBES AND IMPLANTS: None. LOWER CHEST: Unremarkable ABDOMEN and PELVIS ABDOMINAL WALL AND SOFT TISSUES: Unremarkable. BONES: No suspicious lesions. ARTERIES: Incompletely evaluated. No aortoiliac aneurysm VEINS: Incompletely evaluated. LYMPH NODES: Unremarkable. PERITONEUM/ RETROPERITONEUM: Unremarkable. BOWEL: No obstruction. Mild to moderate diverticulosis APPENDIX: Unremarkable LIVER: No suspicious lesions GALLBLADDER: Surgically absent BILE DUCTS: Not dilated SPLEEN: Unremarkable. PANCREAS: Unremarkable. ADRENALS: Unremarkable. KIDNEYS/ URETERS: Nonobstructing bilateral renal calculi measuring up to 6 millimeters in the right and 5 millimeters in the left. Mild bilateral pelvocaliectasis without obstructing stone identified. Left cortical renal scarring. REPRODUCTIVE ORGANS: Uterus appears surgically absent. Bilateral ovaries appear grossly unremarkable URINARY BLADDER: Unremarkable. CT/CT abdomen pelvis wo con IMPRESSION: 1. Nonobstructing bilateral nephrolithiasis. Mild bilateral pelvocaliectasis without obstructing stone identified. Left cortical renal scarring. 2. Mild to moderate diverticulosis. 3. Evaluation for pyelonephritis is limited without intravenous contrast, correlate clinically. Electronically authenticated by: CHRAITO PEDERSON Date: 04/21/2024 00:29 Dictated By: Charito Pederson M.D. Signed By: 04/21/24 0032 DD/ 0029 TD/TT: Cullet Trucker: [place] [address] CT Scan Report Signed Patient: RAMIN BARRIGA MR#: [id number] : 1990 Acct:[id number] Age/Sex: 33 / F ADM Date: 04/20/24 Loc: ER Attending Dr: Ordering Physician: Seng Verdin Date of Service: 04/20/24 Procedure(s): CT abd omen pelvis wo con Accession Number(s): [id number] cc: Domingo Das M.D. [address] [address] Patient Name: DIANA BARRIGA MRN: [id number] date: 1990 Sex: F Assigned Patient Location: ER Current Patient Location: ER Accession/Order Numb er: [id number] Exam Date: 04/20/2024 23:07 Report Date: 04/21/2024 00:29 At the request of: SENG VERDIN Procedure: CT abdome n pelvis wo con EXAM: CT abdomen pel vis wo con HISTORY: left CVA pa in. past kidney stones COMPARISON: 02/20/2024 TECHNIQUE: CT of abd omen and pelvis without intravenous contrast. Dose reduction techniques were achieved by using automated exposure control and/or adjustment of mA and /or kV according to patient size and/or use of iterative reconstruction technique. FINDINGS: Limited evaluation o f the viscera/organs and vasculature without intravenous contrast. TUBES AND IMPLANTS: None. LOWER CHEST: Unremarkable ABDOMEN and PELVIS ABDOMINAL WALL AND S OFT TISSUES: Unremarkable. BONES: No suspicious lesions. ARTERIES: Incomplete ly evaluated. No aortoiliac aneurysm VEINS: Incompletely evaluated. LYMPH NODES: Unremarkable. PERITONEUM/ RETROPERITONEUM: Unremarkable. BOWEL: No obstructio n. Mild to moderate diverticulosis APPENDIX: Unremarkable LIVER: No suspicious lesions GALLBLADDER: Surgica lly absent BILE DUCTS: Not dilated SPLEEN: Unremarkable. PANCREAS: Unremarkable. ADRENALS: Unremarkable. KIDNEYS/ URETERS: Nonobstructing bilateral renal calculi measuring up to 6 millimeters in the r ight and 5 millimeters in the left. Mild bilateral pelvocaliectasis wit hout obstructing stone identified. Left cortical renal scarring. REPRODUCTIVE ORGANS: Uterus appears surgically absent. Bilateral ovaries appear grossly unremarkable URINARY BLADDER: Unremarkable. C T/CT abdomen pelvis wo con IMPRESSION: 1. Nonobstructing bilateral nephrolithiasis. Mild bilateral pelvocaliectasis without obstructing stone identified. Left cortical renal scarring. 2. Mild to moderate diverticulosis. 3. Evaluation for pyelonephritis is limited without intravenous contrast, correlate clinically. Electronically authenticated by: CHARITO PEDERSON Date: 04/21/2024 00:29 Dictated By: Charito Pederson M.D. Signed By: 04/21/24 0032 DD/ 0029 TD/TT: Cullet Trucker: XR thoracic spine 3V Reviewed date:05/03/2024 08:45:37 PM Interpretation: Performing Lab: Notes/Report: Source Facility: [place] [address] [place] [address] XRay Report Signed Patient: DIANA BARRIGA MR#: [id number] : 1990 Acct:[id number] Age/Sex: 33 / F ADM Date: 05/02/24 Loc: ER Attending Dr: Ordering Physician: Cassi Ruano Date of Service: 05/03/24 Procedure(s): XR thoracic spine 3V Accession Number(s): [id number] cc: Domingo Das M.D.; Cassi Candace [place] [address] Patient Name: DIANA BARRIGA MRN: [id number] date: 1990 Sex: F Assigned Patient Location: ER Current Patient Location: Accession/Order Number: [id number] Exam Date: 05/03/2024 01:25 Report Date: 05/03/2024 05:51 At the request of: CASSI RUANO Procedure: XR thoracic spine 3V EXAM: XR cervical spine 2-3V, XR thoracic spine 3V HISTORY: neck pain COMPARISON: None. TECHNIQUE: Frontal and lateral views of the cervical spine and an open-mouth odontoid view were obtained. Frontal, lateral, and swimmer's views of the thoracic spine were obtained. FINDINGS: Cervical spine: The cervical spine is well-imaged from the craniocervical junction to the cervicothoracic junction on the lateral view. No acute fracture or subluxation is seen. There is reversal of the normal cervical lordosis. Otherwise, the vertebral elements are in anatomic alignment. The disc spaces are preserved. The prevertebral soft tissues are unremarkable .There is normal alignment of C1 on C2 on the open-mouth odontoid view. Dental amalgam is noted. The imaged lung apices are clear. Thoracic spine: Cholecystectomy clips are noted. No acute fracture or subluxation is seen. The vertebral body heights are preserved. The vertebral elements are in anatomic alignment. The imaged lungs are clear. XR/XR thoracic spine 3V IMPRESSION: 1. No acute fracture or subluxation of the cervical or thoracic spine is seen. If there is concern for an occult injury, cross-sectional imaging is recommended. 2. Reversal of the normal cervical lordosis. Electronically authenticated by: Asia MASTERS Date: 05/03/2024 05:51 Dictated By: Xiang Masters M.D. Signed By: 05/03/24 0554 DD/ 0551 TD/TT: Cullet Trucker: [place] [address] XRay Report Signed Patient: RAMIN BARRIGA MR#: [id number] : 1990 Acct:[id number] Age/Sex: 33 / F ADM Date: 05/02/24 Loc: ER Attending Dr: Ordering Physician: Cassi Ruano Date of Service: 05/03/24 Procedure(s): XR thoracic spine 3V Accession Number(s): [id number] cc: Domingo Das M.D. ; Cassi Candace [place] [address] Patient Name: DIANA BARRIGA MRN: [id number] date: 1990 Sex: F Assigned Patient Location: ER Current Patient Location: Accession/Order Numb er: [id number] Exam Date: 05/03/2024 01:25 Report Date: 05/03/2024 05:51 At the request of: CASSI RUANO Procedure: XR thorac ic spine 3V EXAM: XR cervical sp ine 2-3V, XR thoracic spine 3V HISTORY: neck pain COMPARISON: None. TECHNIQUE: Frontal a nd lateral views of the cervical spine and an open-mouth odontoid view were obtained. Frontal, lateral, and swimmer's views of the thoracic spine were obtained. FINDINGS: Cervical spine: The cervical spine is well-imaged from the craniocervical junction to the cervicothoracic junction on the lateral view. No acute fracture or subluxation is se en. There is reversal of the normal cervical lordosis. Otherwise, the verte bral elements are in anatomic alignment. The disc spaces are preserved. The prevertebral soft tissues are unremarkable .There is normal alignment of C1 on C 2 on the open-mouth odontoid view. Dental amalgam is noted. The imaged lung apic es are clear. Thoracic spine: Cholecystectomy clips are noted. No acute fracture or subluxation is seen. The vertebral body heights are preserved. The vertebral elements are in dafne omic alignment. The imaged lungs are clear. X R/XR thoracic spine 3V IMPRESSION: 1. No acute fracture or subluxation of the cervical or thoracic spine is seen. If there is concern for an occult injury, cross-sectional imaging is recommended. 2. Reversal of the normal cervical lordosis. Electronically authenticated by: Asia MASTERS Date: 05/03/2024 05:51 Dictated By: Xiang Masters M.D. Signed By: 05/03/24 0554 DD/ 0551 TD/TT: [place]let [employer]cker: XR cervical spine 2-3V Reviewed date:05/03/2024 08:45:37 PM Interpretation: Performing Lab: Notes/Report: Source Facility: [place] [address] XRay Report Signed Patient: DIANA BARRIGA MR#: [id number] : 1990 Acct:[id number] Age/Sex: 33 / F ADM Date: 05/02/24 Loc: ER Attending Dr: Ordering Physician: Cassi Ruano Date of Service: 05/03/24 Procedure(s): XR cervical spine 2-3V Accession Number(s): [id number] cc: Domingo Das M.D.; Cassi Candace [place] [address] Patient Name: DIANA BARRIGA MRN: [id number] date: 1990 Sex: F Assigned Patient Location: ER Current Patient Location: Accession/Order Number: [id number] Exam Date: 05/03/2024 01:25 Report Date: 05/03/2024 05:51 At the request of: CASSI RUANO Procedure: XR cervical spine 2-3V EXAM: XR cervical spine 2-3V, XR thoracic spine 3V HISTORY: neck pain COMPARISON: None. TECHNIQUE: Frontal and lateral views of the cervical spine and an open-mouth odontoid view were obtained. Frontal, lateral, and swimmer's views of the thoracic spine were obtained. FINDINGS: Cervical spine: The cervical spine is well-imaged from the craniocervical junction to the cervicothoracic junction on the lateral view. No acute fracture or subluxation is seen. There is reversal of the normal cervical lordosis. Otherwise, the vertebral elements are in anatomic alignment. The disc spaces are preserved. The prevertebral soft tissues are unremarkable .There is normal alignment of C1 on C2 on the open-mouth odontoid view. Dental amalgam is noted. The imaged lung apices are clear. Thoracic spine: Cholecystectomy clips are noted. No acute fracture or subluxation is seen. The vertebral body heights are preserved. The vertebral elements are in anatomic alignment. The imaged lungs are clear. XR/XR cervical spine 2-3V IMPRESSION: 1. No acute fracture or subluxation of the cervical or thoracic spine is seen. If there is concern for an occult injury, cross-sectional imaging is recommended. 2. Reversal of the normal cervical lordosis. Electronically authenticated by: Asia MASTERS Date: 05/03/2024 05:51 Dictated By: Xiang Masters M.D. Signed By: 05/03/24 0554 DD/ 0551 TD/TT: Cullet Trucker: [place] [address] XRay Report Signed Patient: RAMIN BARRIGA MR#: [id number] : 1990 Acct:[id number] Age/Sex: 33 / F ADM Date: 05/02/24 Loc: ER Attending Dr: Ordering Physician: Cassi Ruano Date of Service: 05/03/24 Procedure(s): XR cervical spine 2-3V Accession Number(s): [id number] cc: Domingo Das M.D. ; Cassi Ruano [place] [id number] Patient Name: DIANA BARRIGA MRN: [id number] date: 1990 Sex: F Assigned Patient Location: ER Current Patient Location: Accession/Order Numb er: [id number] Exam Date: 05/03/2024 01:25 Report Date: 05/03/2024 05:51 At the request of: CASSI MARKER Procedure: XR cervic al spine 2-3V EXAM: XR cervical sp ine 2-3V, XR thoracic spine 3V HISTORY: neck pain COMPARISON: None. TECHNIQUE: Frontal a nd lateral views of the cervical spine and an open-mouth odontoid view were obtained. Frontal, lateral, and swimmer's views of the thoracic spine were obtained. FINDINGS: Cervical spine: The cervical spine is well-imaged from the craniocervical junction to the cervicothoracic junction on the lateral view. No acute fracture or subluxation is se en. There is reversal of the normal cervical lordosis. Otherwise, the verte bral elements are in anatomic alignment. The disc spaces are preserved. The prevertebral soft tissues are unremarkable .There is normal alignment of C1 on C 2 on the open-mouth odontoid view. Dental amalgam is noted. The imaged lung apic es are clear. Thoracic spine: Cholecystectomy clips are noted. No acute fracture or subluxation is seen. The vertebral body heights are preserved. The vertebral elements are in dafne omic alignment. The imaged lungs are clear. X R/XR cervical spine 2-3V IMPRESSION: 1. No acute fracture or subluxation of the cervical or thoracic spine is seen. If there is concern for an occult injury, cross-sectional imaging is recommended. 2. Reversal of the normal cervical lordosis. Electronically authenticated by: Asai MASTERS Date: 05/03/2024 05:51 Dictated By: Xiang Masters M.D. Signed By: 05/03/24 0554 DD/ 0551 TD/TT: [place]cker: SARS-CoV-2 Ag* Reviewed date:06/29/2024 09:48:01 PM Interpretation: Performing Lab: Notes/Report: [facility] , SARS-CoV-2 Ag NEGATIVE NEGATIVE This test has not been FDA cleared or approved, but has been authorized by the FDA under an Emergency Use Authorization (EUA) for use by authorized laboratories certified under CLIA that meet the requirements to perform moderate or high complexity testing. This test has been authorized only for the detection of proteins from SARS-CoV-2, not for any other viruses or pathogens. The emergency use of this test is authorized for the duration of the declaration that circumstances exist justifying the authorization of emergency use of in vitro diagnostic tests for detection and/or diagnosis of Covid-19 under section 564(b)(1) of the Act, 21 U.S.C. 360bbb-3(b)(1), unless the declaration is terminated or authorization is revoked sooner. Performing Lab: see note ML - [facility] LB FOLATE Reviewed date:07/28/2024 07:31:04 PM Interpretation: Performing Lab: Notes/Report: [facility] , Folate 4.40 8.60-58.90 ng/mL Performing Lab: see note ML - [facility] LB Vitamin B12 Reviewed date:07/29/2024 01:04:17 PM Interpretation: Performing Lab: Notes/Report: [facility] , Vitamin B12 [phone] pg/mL Performed at: - [facility] [address] [id number] Travel Registered Nurse Pacu: Travis Menjivar PhD, Phone: [phone] Performing Lab: see note - [facility] LB XR hip BI w PEL 1V Reviewed date:07/29/2024 01:04:17 PM Interpretation: Performing Lab: Notes/Report: Source Facility: [place] [address] XRay Report Signed Patient: DIANA BARRIGA MR#: [id number] : 1990 Acct:[id number] Age/Sex: 33 / F ADM Date: 07/28/24 Loc: LAB Attending Dr: Domingo Das M.D. Ordering Physician: Domingo Das M.D. Date of Service: 07/28/24 Procedure(s): XR hip BI w PEL 1V Accession Number(s): [id number] cc: Domingo Das M.D. [place] [address] Patient Name: DIANA BARRIGA MRN: [facility]:[id number] date: 1990 Sex: F Assigned Patient Location: LAB Current Patient Location: Accession/Order Number: [id number] Exam Date: 07/28/2024 09:45 Report Date: 07/29/2024 04:50 At the request of: DOMINGO DAS Procedure: XR hip BI w PEL 1V EXAMINATION: XR hip BI w PEL 1V HISTORY: Myalgia, Low Back Pain, Muscle Spasm COMPARISON: No relevant comparison available. FINDINGS: RIGHT FINDINGS: BONES: No significant arthropathy or acute abnormality. SOFT TISSUES: No visible soft tissue swelling. OTHER: Negative. LEFT FINDINGS: BONES: No significant arthropathy or acute abnormality. SOFT TISSUES: No visible soft tissue swelling. OTHER: Negative. XR/XR hip BI w PEL 1V IMPRESSION: RIGHT CONCLUSION: Normal examination. LEFT CONCLUSION: Normal examination. Electronically authenticated by: MANFRED RENE Date: 07/29/2024 04:50 Dictated By: Manfred Rene M.D. Signed By: 07/29/24451 DD/ 9 TD/TT: Cullet Trucker: [place] [address] XRay Report Signed Patient: RAMIN BARRIGA MR#: [id number] : 1990 Acct:[id number] Age/Sex: 33 / F ADM Date: 07/28/24 Loc: LAB Attending Dr: Radha Das M.D. Ordering Physician: Domingo Das M.D. Date of Service: 07/28/24 Procedure(s): XR hip BI w PEL 1V Accession Number(s): [id number] cc: Domingo Das M.D. [place] [id number] Patient Name: DIANA BARRIGA MRN: [id number] date: 1990 Sex: F Assigned Patient Location: LAB Current Patient Location: Accession/Order Numb er: [id number] Exam Date: 09:45 Report Date: 07/29/2024 04:50 At the request of: DOMINGO DAS Procedure: XR hip BI w PEL 1V EXAMINATION: XR hip BI w PEL 1V HISTORY: Myalgia, Lo w Back Pain, Muscle Spasm COMPARISON: No relev ant comparison available. FINDINGS: RIGHT FINDINGS: BONES: No significan t arthropathy or acute abnormality. SOFT TISSUES: No vis ible soft tissue swelling. OTHER: Negative. LEFT FINDINGS: BONES: No significan t arthropathy or acute abnormality. SOFT TISSUES: No vis ible soft tissue swelling. OTHER: Negative. X R/XR hip BI w PEL 1V IMPRESSION: RIGHT CONCLUSION: No rmal examination. LEFT CONCLUSION: Nor mal examination. Electronically authenticated by: MANFRED RENE Date: 07/29/2024 04:50 Dictated By: Manfred Rene M.D. Signed By: 07/29/24451 DD/ 9 TD/TT: [employer]let [employer]cker: Erythrocyte Sedimentation Ra te Reviewed date:09/08/2024 02:54:07 PM Interpretation: Performing Lab: Notes/Report: [facility] , Erythrocyte Sedimentation Rate 10 <=20 mm/hr Performing Lab: see note ML - [facility] LB CBC AUTO DIFF Reviewed date:09/28/2024 07:53:59 PM Interpretation: Performing Lab: Notes/Report: [facility] , White Blood Count 5.7 4.0-11.0 10 3/uL Red Blood Count 4.98 4.20-5.40 10 6/uL Hemoglobin 14.0 12.0-16.0 g/dL Hematocrit 42.0 36.0-48.0 % Mean Corpuscular Volume 84.3 81.0-99.0 fL Mean Corpuscular Hemoglobin 28.1 26.7-34.0 pg Mean Corpuscular HGB Conc 33.3 29.9-35.2 g/dL Red Cell Distribution Width 13.2 11.0-15.0 % Platelet Count 264 150-450 10 3/uL Mean Platelet Volume 8.9 9.5-13.5 fL Performing Lab: see note ML - [facility] LB UA (CLEAN or CATCH) LEAD JAVASCRIPT DEVELOPER or M ICRO IF IND. Reviewed date:09/28/2024 07:53:59 PM Interpretation: Performing Lab: Notes/Report: [facility] , Color Urine LT. YELLOW YELLOW Clarity Urine SL CLOUDY CLEAR Specific [place] Urine 1.020 1.005-1.025 pH Urine 6.5 5.0-9.0 Protein Urine 30 NEG/TRACE mg/dL Glucose Urine UA NEGATIVE NEGATIVE mg/dL Bilirubin Urine NEGATIVE NEGATIVE Ketones Urine NEGATIVE NEGATIVE mg/dL Blood Urine MODERATE NEGATIVE Nitrite Urine POSITIVE NEGATIVE Urobilinogen Urine 1.0 0.2-1.0 EU/dL Leukocyte Esterase Urine SMALL NEGATIVE Urine Microscopic Indicated YES Performing Lab: see note ML - [facility] LB URINE MICROSCOPIC ONLY Reviewed date:09/28/2024 07:53:59 PM Interpretation: Performing Lab: Notes/Report: [facility] , WBC Urine 50-75 NONE SEEN #/HPF RBC Urine 2-5 0-2 #/HPF Bacteria Urine LARGE NONE SEEN #/HPF Mucus Urine MODERATE NONE SEEN Squamous Epithelial Cell Urine FEW NONE/RARE #/LPF Crystals Seen? None Seen None Seen #/HPF Cast Seen? NONE SEEN NONE SEEN #/LPF Urine Culture Indicated YES Performing Lab: see note ML - [facility] LB FL VOIDING URETHROCYSTOGRAM S AND I Reviewed date:01/22/2025 03:38:47 PM Interpretation: Performing Lab: Notes/Report: EXAMINATION: Performed at: [facility] [employer] [place] [address] Performed at: PROF 14(COMP METB) Reviewed date:01/22/2025 03:38:47 PM Interpretation: Performing Lab: Notes/Report: [facility] , Sodium 139 136-145 mmol/L Potassium 3.3 3.5-5.1 mmol/L Chloride 104 98-107 mmol/L Carbon Dioxide 30.8 21.0-32.0 mmol/L Anion Gap 7.5 Glucose 90 74-106 mg/dL Blood Urea Nitrogen 6.0 7.0-18.0 mg/dL Creatinine 0.82 0.55-1.02 mg/dL Estimated GFR ( Kyung >60 >=60 mL/min/1.73m 2 Estimated GFR (Non- Shefali >60 >=60 mL/min/1.73m 2 BUN Creatinine Ratio 7.3 Calcium 9.1 8.5-10.1 mg/dL Bilirubin Total 0.4 0.2-1.0 mg/dL Aspartate Amino Transferase 20 15-37 U/L Alanine Aminotransferase 44 14-59 U/L Alkaline Phosphatase 74 46-116 U/L Total Protein 7.8 6.4-8.2 g/dL Albumin Level 3.9 3.4-5.0 g/dL Globulin 3.9 Albumin Globulin Ratio 1.0 Performing Lab: see note ML - [facility] LB XR abdomen 1V Reviewed date:12/03/2024 02:14:40 PM Interpretation: Performing Lab: Notes/Report: Source Facility: [facility]-[address] [place] [address] XRay Report Signed Patient: DIANA BARRIGA MR#: [id number] : 1990 Acct:[id number] Age/Sex: 34 / F ADM Date: 12/02/24 Loc: ER Attending Dr: Ordering Physician: Ninoska Leonard Date of Service: 12/02/24 Procedure(s): XR abdomen 1V Accession Number(s): [id number] cc: Domingo Das M.D.; Ninoska Leonard [place] [address] Patient Name: DIANA BARRIGA MRN: [id number] date: 1990 Sex: F Assigned Patient Location: ER Current Patient Location: Accession/Order Number: [id number] Exam Date: 12/02/2024 18:12 Report Date: 12/02/2024 20:07 At the request of: NINOSKA LEONARD Procedure: XR abdomen 1V EXAM: XR abdomen 1V HISTORY: kub COMPARISON: CT abdomen pelvis wo con Study Date: 09/28/2024 TECHNIQUE: Single supine view of the abdomen FINDINGS: 4 mm calculus is seen projecting over the expected location of the lower pole of the kidneys bilaterally suggestive of bilateral nephrolithiasis. Nonobstructive bowel pattern is seen. Moderate to large volume of stool is seen in the colon. XR/XR abdomen 1V IMPRESSION: 4 mm calculus is seen projecting over the expected location of the lower pole of the kidneys bilaterally suggestive of bilateral nephrolithiasis Electronically authenticated by: KAT DAVENPORT Date: 12/02/2024 20:07 Dictated By: Kat Davenport M.D. Signed By: 12/02/242008 DD/ 06 TD/TT: [employer]: [place] [address] XRay Report Signed Patient: RAMIN BARRIGA MR#: [id number] : 1990 Acct:[id number] Age/Sex: 34 / F ADM Date: 12/02/24 Loc: ER Attending Dr: Ordering Physician: Ninoska Leonard Date of Service: 12/02/24 Procedure(s): XR abd omen 1V Accession Number(s): [id number] cc: Domingo Das M.D. ; Ninoska Leonard [place] [address] Patient Name: DIANA BARRIGA MRN: [id number] date: 1990 Sex: F Assigned Patient Location: ER Current Patient Location: Accession/Order Numb er: [id number] Exam Date: 12/02/2024 18:12 Report Date: 12/02/2024 20:07 At the request of: NINOSKA LEONARD Procedure: XR abdomen 1V EXAM: XR abdomen 1V HISTORY: kub COMPARISON: CT abdom en pelvis wo con Study Date: 09/28/2024 TECHNIQUE: Single rapp pine view of the abdomen FINDINGS: 4 mm calcu juan is seen projecting over the expected location of the lower pole of the kidneys bilaterally suggestive of bilateral nephrolithiasis. Nonobstructive bowel pattern is seen. Moderate to large volume of stool is seen in the colon. X R/XR abdomen 1V IMPRESSION: 4 mm calculus is see n projecting over the expected location of the lower pole of the kidneys bilaterally suggestive of bilateral nephrolithiasis Electronically authenticated by: KAT DAVENPORT Date: 12/02/2024 20:07 Dictated By: Kat Davenport M.D. Signed By: 12/02/242008 DD/ 06 TD/TT: [place]: Urine Culture - [facility] Reviewed date:12/07/2024 07:22:21 PM Interpretation: Performing Lab: Notes/Report: [facility] , Urine Culture - [facility] See Below For Report Urine Culture - [facility] 30,000 colonies/ml mixed Urine Culture - [facility] bacterial skin contaminants Urine Culture - [facility] 30,000 colonies/ml mixed Urine Culture - [facility] 2 Days Urine Culture - [facility] 30,000 colonies/ml mixed Urine Culture - [facility] Urine Culture - [facility] 30,000 colonies/ml mixed Urine Culture - [facility] Testing performed a [facility] Urine Culture - [facility] 30,000 colonies/ml mixed Urine Culture - [facility] [address] [place] [address] Urine Culture - [facility] 30,000 colonies/ml mixed Performing Lab: see note ML - [facility] LB UA Micro, reflex to culture Reviewed date:12/03/2024 02:14:40 PM Interpretation: Performing Lab: Notes/Report: [facility] , Color Urine DK. ORANGE YELLOW Clarity Urine CLEAR CLEAR Specific [place] Urine <=1.005 1.005-1.025 pH Urine 6.5 5.0-9.0 Protein Urine NEGATIVE NEG/TRACE mg/dL Glucose Urine UA NEGATIVE NEGATIVE mg/dL Bilirubin Urine NEGATIVE NEGATIVE Ketones Urine NEGATIVE NEGATIVE mg/dL Blood Urine LARGE NEGATIVE Nitrite Urine POSITIVE NEGATIVE Urobilinogen Urine 1.0 0.2-1.0 EU/dL Leukocyte Esterase Urine TRACE NEGATIVE WBC Urine 2-5 NONE SEEN #/HPF RBC Urine 0-2 0-2 #/HPF Bacteria Urine SMALL NONE SEEN #/HPF Mucus Urine MODERATE NONE SEEN Squamous Epithelial Cell Urine FEW NONE/RARE #/LPF Transitional Epi Cells Urine RARE NONE SEEN #/LPF Crystals Seen? Seen None Seen #/HPF Calcium Oxalate Crystals Urine RARE Cast Seen? NONE SEEN NONE SEEN #/LPF Urine Culture Indicated YES-[facility] Performing Lab: see note ML - [facility] LB PROF 14(COMP METB) Reviewed date:12/03/2024 02:14:40 PM Interpretation: Performing Lab: Notes/Report: [facility] , Sodium 142 136-145 mmol/L Potassium 3.2 3.5-5.1 mmol/L Chloride 104 98-107 mmol/L Carbon Dioxide 31.9 21.0-32.0 mmol/L Anion Gap 9.3 Glucose 90 74-106 mg/dL Blood Urea Nitrogen 5.0 7.0-18.0 mg/dL Creatinine 0.98 0.55-1.02 mg/dL Estimated GFR ( Kyung >60 >=60 mL/min/1.73m 2 Estimated GFR (Non- Shefali >60 >=60 mL/min/1.73m 2 BUN Creatinine Ratio 5.1 Calcium 9.2 8.5-10.1 mg/dL Bilirubin Total 0.3 0.2-1.0 mg/dL Aspartate Amino Transferase 20 15-37 U/L Alanine Aminotransferase 32 14-59 U/L Alkaline Phosphatase 74 46-116 U/L Total Protein 7.0 6.4-8.2 g/dL Albumin Level 3.7 3.4-5.0 g/dL Globulin 3.3 Albumin Globulin Ratio 1.1 Performing Lab: see note ML - [facility] LB LIPASE Reviewed date:12/03/2024 02:14:40 PM Interpretation: Performing Lab: Notes/Report: [facility] , Lipase 29.0 16.0-77.0 U/L Performing Lab: see note ML - [facility] LB LACTATE or LACTIC ACID Reviewed date:12/03/2024 02:14:40 PM Interpretation: Performing Lab: Notes/Report: [facility] , Lactate/Lactic Acid 1.1 0.4-2.0 mmol/L Performing Lab: see note ML - [facility] LB CBC AUTO DIFF Reviewed date:12/03/2024 02:14:40 PM Interpretation: Performing Lab: Notes/Report: [facility] , White Blood Count 7.3 4.0-11.0 10 3/uL Red Blood Count 4.46 4.20-5.40 10 6/uL Hemoglobin 12.6 12.0-16.0 g/dL Hematocrit 38.1 36.0-48.0 % Mean Corpuscular Volume 85.4 81.0-99.0 fL Mean Corpuscular Hemoglobin 28.3 26.7-34.0 pg Mean Corpuscular HGB Conc 33.1 29.9-35.2 g/dL Red Cell Distribution Width 12.5 11.0-15.0 % Platelet Count 273 150-450 10 3/uL Mean Platelet Volume 9.1 9.5-13.5 fL Neutrophils Percent Auto 45.8 43.0-75.0 % Lymphocytes Percent Auto 44.3 20.5-60.0 % Monocytes Percent Auto 7.4 1.7-12.0 % Eosinophils Percent Auto 1.8 0.9-7.0 % Basophils Percent Auto 0.6 0.2-2.0 % Immature Granulocytes Pct Auto 0.1 0.0-0.5 % Neutrophils Absolute Auto 3.3 1.4-6.5 10 3/uL Lymphocytes Absolute Auto 3.2 1.2-3.8 10 3/uL Monocytes Absolute Auto 0.5 0.3-0.8 10 3/uL Eosinophils Absolute Auto 0.1 0.0-0.7 10 3/uL Basophils Absolute Auto 0.0 0.0-0.1 10 3/uL Immature Granulocytes Abs Auto 0.01 0.00-0.03 10 3/uL Performing Lab: see note - [facility] LB Urine Culture, Routine Reviewed date:10/04/2024 12:21:27 PM Interpretation: Performing Lab: Notes/Report: [facility] , Urine Culture, Routine See Below For Report Urine Culture, Routine Urine Culture, Routine Mixed urogenital greg Urine Culture, Routine Urine Culture, Routine 10,000-25,000 col bryon forming units per mL Urine Culture, Routine Urine Culture, Routine Performed at: - [facility] [place] Urine Culture, Routine Urine Culture, Routine [address] [place], [place] [id number] Urine Culture, Routine Urine Culture, Routine Travel Registered Nurse Pacu: Arie Menjivar PhD, Phone: [phone] Urine Culture, Routine Performing Lab: see note - [facility] LB SEE REPORT - Negative Cutter Id information not found for OBX-specific online producer legend URINE MICROSCOPIC ONLY Reviewed date:10/02/2024 08:18:34 PM Interpretation: Performing Lab: Notes/Report: [facility] , WBC Urine 5-10 NONE SEEN #/HPF RBC Urine 0-2 0-2 #/HPF Bacteria Urine SMALL NONE SEEN #/HPF Mucus Urine TRACE NONE SEEN Squamous Epithelial Cell Urine FEW NONE/RARE #/LPF Crystals Seen? None Seen None Seen #/HPF Amorphous Sediment Urine FEW Cast Seen? NONE SEEN NONE SEEN #/LPF Urine Culture Indicated YES Performing Lab: see note - [facility] LB UA (CLEAN or CATCH) LEAD JAVASCRIPT DEVELOPER or M ICRO IF IND. Reviewed date:10/02/2024 08:18:34 PM Interpretation: Performing Lab: Notes/Report: [facility] , Color Urine LT. YELLOW YELLOW Clarity Urine CLOUDY CLEAR Specific [place] Urine 1.020 1.005-1.025 pH Urine 7.5 5.0-9.0 Protein Urine NEGATIVE NEG/TRACE mg/dL Glucose Urine UA NEGATIVE NEGATIVE mg/dL Bilirubin Urine NEGATIVE NEGATIVE Ketones Urine NEGATIVE NEGATIVE mg/dL Blood Urine NEGATIVE NEGATIVE Nitrite Urine NEGATIVE NEGATIVE Urobilinogen Urine 1.0 0.2-1.0 EU/dL Leukocyte Esterase Urine MODERATE NEGATIVE Urine Microscopic Indicated YES Performing Lab: see note ML - [facility] LB CT abdomen pelvis wo con Reviewed date:09/28/2024 07:53:59 PM Interpretation: Performing Lab: Notes/Report: Source Facility: [place] [address] CT Scan Report Signed Patient: DIANA BARRIGA MR#: [id number] : 1990 Acct:[id number] Age/Sex: 34 / F ADM Date: 09/28/24 Loc: ER Attending Dr: Ordering Physician: Stephanie Ramirez Date of Service: 09/28/24 Procedure(s): CT abdomen pelvis wo con Accession Number(s): [id number] cc: Domingo Das M.D. [place] [address] Patient Name: DIANA BARRIGA MRN: [id number] date: 1990 Sex: F Assigned Patient Location: ER Current Patient Location: ER Accession/Order Number: [id number] Exam Date: 09/28/2024 15:52 Report Date: 09/28/2024 16:28 At the request of: STEPHANIE RAMIREZ Procedure: CT abdomen pelvis wo con EXAM: CT abdomen pelvis wo con HISTORY: Left abd, flank pain COMPARISON: 04/20/2024 TECHNIQUE: Dose reduction techniques were achieved by using automated exposure control and/or adjustment of mA and/or kV according to patient size and/or use of iterative reconstruction technique. Noncontrast CT of the abdomen/pelvis. FINDINGS: Mild posterior dependent atelectasis of the lower lobes. Heart size is normal. No pericardial effusion. No focal liver abnormality. Cholecystectomy. Spleen is normal. Distal esophagus, stomach, and duodenum are normal. Pancreas is normal. Nonobstructive stones of the bilateral kidneys. Atrophy of the left kidney. No left hydronephrosis. No left hydroureter. No ureteral stones. No bladder stones. No focal bladder wall thickening. No colonic dilation. No pericolonic fat stranding. Appendix is normal. No small bowel dilation. No adjacent mesenteric edema. No retroperitoneal, pelvic, or inguinal adenopathy. Normal alignment of the bilateral hip joints. Moderate degeneration of the bilateral sacroiliac joints. CT/CT abdomen pelvis wo con IMPRESSION: 1. Nonobstructive stones of the bilateral kidneys. No ureteral stones. No bladder stones. No focal bladder wall thickening. 2. Cholecystectomy. 3. No other acute abnormality of the abdomen or pelvis. Electronically authenticated by: BRIAN KHALIL Date: 09/28/2024 16:28 Dictated By: Brian Khalil M.D. Signed By: 09/28/24 1631 DD/ 1628 TD/TT: [employer]: [place] [address] CT Scan Report Signed Patient: RAMIN BARRIGA MR#: [id number] : 1990 Acct:[id number] Age/Sex: 34 / F ADM Date: 09/28/24 Loc: ER Attending Dr: Ordering Physician: Stephanie Ramirez Date of Service: 09/28/24 Procedure(s): CT abd omen pelvis wo con Accession Number(s): [id number] cc: Domingo Das M.D. [place] [id number] Patient Name: DIANA BARRIGA MRN: [id number] date: 1990 Sex: F Assigned Patient Location: ER Current Patient Location: ER Accession/Order Numb er: [id number] Exam Date: 15:52 Report Date: 09/28/2024 16:28 At the request of: STEPHANIE RAMIREZ Procedure: CT abdome n pelvis wo con EXAM: CT abdomen pel vis wo con HISTORY: Left abd, f lank pain COMPARISON: 04/20/2024 TECHNIQUE: Dose reduction techniques were achieved by using automated exposure control and/or adjustment of mA and/or kV according to patient size and/or use of iterative reconstruction technique. Noncontrast CT of th e abdomen/pelvis. FINDINGS: Mild posterior depen dent atelectasis of the lower lobes. Heart size is normal . No pericardial effusion. No focal liver abnormality. Cholecystectomy. Spleen is normal. Distal esophagus, stomach, and duodenum are normal. Pancreas is normal. Nonobstructive stone s of the bilateral kidneys. Atrophy of the left kidney. No left hydronephros is. No left hydroureter. No ureteral stones. No bladder stones. N o focal bladder wall thickening. No colonic dilation. No pericolonic fat stranding. Appendix is normal. No small bowel dilat ion. No adjacent mesenteric edema. No retroperitoneal, pelvic, or inguinal adenopathy. Normal alignment of the bilateral hip joints. Moderate degeneratio n of the bilateral sacroiliac joints. C T/CT abdomen pelvis wo con IMPRESSION: 1. Nonobstructive st ones of the bilateral kidneys. No ureteral stones. No bladder stones. No f ocal bladder wall thickening. 2. Cholecystectomy. 3. No other acute abnormality of the abdomen or pelvis. Electronically authenticated by: BRIAN KHALIL Date: 09/28/2024 16:28 Dictated By: Urmila Khalil M.D. Signed By: 09/28/24 1631 DD/ 1628 TD/TT: [employer]: Urine Culture, Routine Reviewed date:10/03/2024 06:15:29 PM Interpretation: Performing Lab: Notes/Report: [facility] , Urine Culture, Routine See Below For Report Urine Culture, Routine Organism: Gram negative christelle : O:ECMS Isolated O:GNR Isolated Organism: 1.1 Antibiotic Interpretation ANASTASIA Status Urine Culture, Routine *ABNORMAL* Urine Culture, Routine Organism: Gram negative christelle : O:ECMS Isolated O:GNR Isolated Organism: 1.1 Antibiotic Interpretation ANASTASIA Status Urine Culture, Routine Greater than 100, 000 colony forming units per mL Urine Culture, Routine Organism: Gram negative christelle : O:ECMS Isolated O:GNR Isolated Organism: 1.1 Antibiotic Interpretation ANASTASIA Status Urine Culture, Routine Gram negative christelle Urine Culture, Routine Organism: Gram negative christelle : O:ECMS Isolated O:GNR Isolated Organism: 1.1 Antibiotic Interpretation ANASTASIA Status Urine Culture, Routine Organism: Escheri nery coli, : Urine Culture, Routine Organism: Gram negative christelle : O:ECMS Isolated O:GNR Isolated Organism: 1.1 Antibiotic Interpretation ANASTASIA Status Urine Culture, Routine *ABNORMAL* Urine Culture, Routine Organism: Gram negative christelle : O:ECMS Isolated O:GNR Isolated Organism: 1.1 Antibiotic Interpretation ANASTASIA Status Urine Culture, Routine Cefazolin <=4 ug/mL Urine Culture, Routine Organism: Gram negative christelle : O:ECMS Isolated O:GNR Isolated Organism: 1.1 Antibiotic Interpretation ANASTASIA Status Urine Culture, Routine Cefazolin with an ANASTASIA <=16 predicts susceptibility Urine Culture, Routine Organism: Gram negative christelle : O:ECMS Isolated O:GNR Isolated Organism: 1.1 Antibiotic Interpretation ANASTASIA Status Urine Culture, Routine to the oral agent s cefaclor, cefdinir, cefpodoxime, Urine Culture, Routine Organism: Gram negative christelle : O:ECMS Isolated O:GNR Isolated Organism: 1.1 Antibiotic Interpretation ANASTASIA Status Urine Culture, Routine cefprozil, cefuro martínez, cephalexin, and loracarbef when Urine Culture, Routine Organism: Gram negative christelle : O:ECMS Isolated O:GNR Isolated Organism: 1.1 Antibiotic Interpretation ANASTASIA Status Urine Culture, Routine used for therapy of uncomplicated urinary tract Urine Culture, Routine Organism: Gram negative christelle : O:ECMS Isolated O:GNR Isolated Organism: 1.1 Antibiotic Interpretation ANASTASIA Status Urine Culture, Routine infections due to E. coli, Klebsiella pneumoniae, and Urine Culture, Routine Organism: Gram negative christelle : O:ECMS Isolated O:GNR Isolated Organism: 1.1 Antibiotic Interpretation ANASTASIA Status Urine Culture, Routine Proteus mirabilis. Urine Culture, Routine Organism: Gram negative christelle : O:ECMS Isolated O:GNR Isolated Organism: 1.1 Antibiotic Interpretation ANASTASIA Status Urine Culture, Routine Greater than 100, 000 colony forming units per mL Urine Culture, Routine Organism: Gram negative christelle : O:ECMS Isolated O:GNR Isolated Organism: 1.1 Antibiotic Interpretation ANASTASIA Status Urine Culture, Routine Escherichia coli, Urine Culture, Routine Organism: Gram negative christelle : O:ECMS Isolated O:GNR Isolated Organism: 1.1 Antibiotic Interpretation ANASTASIA Status Urine Culture, Routine See Below For Report Urine Culture, Routine Organism: Gram negative christelle : O:ECMS Isolated O:GNR Isolated Organism: 1.1 Antibiotic Interpretation ANASTASIA Status Urine Culture, Routine See Below For Report Urine Culture, Routine Organism: Gram negative christelle : O:ECMS Isolated O:GNR Isolated Organism: 1.1 Antibiotic Interpretation ANASTASIA Status Urine Culture, Routine [facility]formed [facility], Routine Organism: Gram negative christelle : O:ECMS Isolated O:GNR Isolated Organism: 1.1 Antibiotic Interpretation ANASTASIA Status Urine Culture, Routine [address] [place], [place] [phone] Urine Culture, Routine Organism: Gram negative christelle : O:ECMS Isolated O:GNR Isolated Organism: 1.1 Antibiotic Interpretation ANASTASIA Status Urine Culture, Routine Travel Registered Nurse Pacu: Arie Menjivar PhD, Phone: [phone] Urine Culture, Routine Organism: Gram negative christelle : O:ECMS Isolated O:GNR Isolated Organism: 1.1 Antibiotic Interpretation ANASTASIA Status Urine Culture, Routine See Below For Report Urine Culture, Routine Organism: Gram negative christelle : O:ECMS Isolated O:GNR Isolated Organism: 1.1 Antibiotic Interpretation ANASTASIA Status Urine Culture, Routine AMOXICILLIN/CLAVU LANIC ACID S F Urine Culture, Routine Organism: Gram negative christelle : O:ECMS Isolated O:GNR Isolated Organism: 1.1 Antibiotic Interpretation ANASTASIA Status Urine Culture, Routine Ampicillin S F Urine Culture, Routine Organism: Gram negative christelle : O:ECMS Isolated O:GNR Isolated Organism: 1.1 Antibiotic Interpretation ANASTASIA Status Urine Culture, Routine Cefepime S F Urine Culture, Routine Organism: Gram negative christelle : O:ECMS Isolated O:GNR Isolated Organism: 1.1 Antibiotic Interpretation ANASTASIA Status Urine Culture, Routine Ceftriaxone S F Urine Culture, Routine Organism: Gram negative christelle : O:ECMS Isolated O:GNR Isolated Organism: 1.1 Antibiotic Interpretation ANASTASIA Status Urine Culture, Routine Cefuroxime S F Urine Culture, Routine Organism: Gram negative christelle : O:ECMS Isolated O:GNR Isolated Organism: 1.1 Antibiotic Interpretation ANASTASIA Status Urine Culture, Routine Ciprofloxacin S F Urine Culture, Routine Organism: Gram negative christelle : O:ECMS Isolated O:GNR Isolated Organism: 1.1 Antibiotic Interpretation ANASTASIA Status Urine Culture, Routine Ertapenem S F Urine Culture, Routine Organism: Gram negative christelle : O:ECMS Isolated O:GNR Isolated Organism: 1.1 Antibiotic Interpretation ANASTASIA Status Urine Culture, Routine Gentamicin S F Urine Culture, Routine Organism: Gram negative christelle : O:ECMS Isolated O:GNR Isolated Organism: 1.1 Antibiotic Interpretation ANASTASIA Status Urine Culture, Routine Imipenem S F Urine Culture, Routine Organism: Gram negative christelle : O:ECMS Isolated O:GNR Isolated Organism: 1.1 Antibiotic Interpretation ANASTASIA Status Urine Culture, Routine Levofloxacin S F Urine Culture, Routine Organism: Gram negative christelle : O:ECMS Isolated O:GNR Isolated Organism: 1.1 Antibiotic Interpretation ANASTASIA Status Urine Culture, Routine Meropenem S F Urine Culture, Routine Organism: Gram negative christelle : O:ECMS Isolated O:GNR Isolated Organism: 1.1 Antibiotic Interpretation ANASTASIA Status Urine Culture, Routine Nitrofurantoin S F Urine Culture, Routine Organism: Gram negative christelle : O:ECMS Isolated O:GNR Isolated Organism: 1.1 Antibiotic Interpretation ANASTASIA Status Urine Culture, Routine Tetracycline S F Urine Culture, Routine Organism: Gram negative christelle : O:ECMS Isolated O:GNR Isolated Organism: 1.1 Antibiotic Interpretation ANASTASIA Status Urine Culture, Routine Tobramycin S F Urine Culture, Routine Organism: Gram negative christelle : O:ECMS Isolated O:GNR Isolated Organism: 1.1 Antibiotic Interpretation ANASTASIA Status Urine Culture, Routine Trimethoprim/Sulf amethox azole S F Urine Culture, Routine Organism: Gram negative christelle : O:ECMS Isolated O:GNR Isolated Organism: 1.1 Antibiotic Interpretation ANASTASIA Status Urine Culture, Routine Piperacillin/Tazo bactam S F Urine Culture, Routine Organism: Gram negative christelle : O:ECMS Isolated O:GNR Isolated Organism: 1.1 Antibiotic Interpretation ANASTASIA Status Performing Lab: see note LC - [facility] LB SEE REPORT - Negative Cutter Id information not found for OBX-specific online producer legend Manual Differential Reviewed date:09/28/2024 07:53:59 PM Interpretation: Performing Lab: Notes/Report: [facility] , Segmented Neutrophils % Manual 37.0 43.0-75.0 Lymphocytes Percent Manual 49.0 20.5-60.0 % Monocytes Percent Manual 13.0 1.7-12.0 % Eosinophils Percent Manual 0.0 0.9-7.0 % Basophils Percent Manual 1.0 0.2-2.0 % Segmented Neut Absolute Manual 2.10 1.4-6.5 10 3/uL Lymphocytes Absolute Manual 2.79 1.20-3.80 10 3/uL Monocytes Absolute Manual 0.74 0.30-0.80 10 3/uL Eosinophils Absolute Manual 0.00 0.00-0.70 10 3/uL Basophils Abs Manual 0.05 0.00-0.10 1 0 3/uL Performing Lab: see note ML - [facility] LB PROF 14(COMP METB) Reviewed date:09/28/2024 07:53:59 PM Interpretation: Performing Lab: Notes/Report: [facility] , Sodium 143 136-145 mmol/L Potassium 3.6 3.5-5.1 mmol/L Chloride 106 98-107 mmol/L Carbon Dioxide 28.6 21.0-32.0 mmol/L Anion Gap 12.0 Glucose 89 74-106 mg/dL Blood Urea Nitrogen 10.0 7.0-18.0 mg/dL Creatinine 0.89 0.55-1.02 mg/dL Estimated GFR ( Kyung >60 >=60 mL/min/1.73m 2 Estimated GFR (Non- Shefali >60 >=60 mL/min/1.73m 2 BUN Creatinine Ratio 11.2 Calcium 9.0 8.5-10.1 mg/dL Bilirubin Total 0.6 0.2-1.0 mg/dL Aspartate Amino Transferase 38 15-37 U/L Alanine Aminotransferase 65 14-59 U/L Alkaline Phosphatase 111 46-116 U/L Total Protein 7.5 6.4-8.2 g/dL Albumin Level 3.7 3.4-5.0 g/dL Globulin 3.8 Albumin Globulin Ratio 1.0 Performing Lab: see note ML - [facility] LB XR lumbar spine min 4V Reviewed date:07/28/2024 07:31:04 PM Interpretation: Performing Lab: Notes/Report: Source Facility: [facility]-[address] [place] [address] [place] [address] XRay Report Signed Patient: DIANA BARRIGA MR#: [id number] : 1990 Acct:[id number] Age/Sex: 33 / F ADM Date: 07/28/24 Loc: LAB Attending Dr: Domingo Das M.D. Ordering Physician: Domingo Das M.D. Date of Service: 07/28/24 Procedure(s): XR lumbar spine min 4V Accession Number(s): [id number] cc: Domingo Das M.D. [address] [address] Patient Name: DIANA BARRIGA MRN: [id number] date: 1990 Sex: F Assigned Patient Location: LAB Current Patient Location: LAB Accession/Order Number: [id number] Exam Date: 07/28/2024 09:45 Report Date: 07/28/2024 11:05 At the request of: DOMINGO DAS Procedure: XR lumbar spine min 4V EXAMINATION: XR lumbar spine min 4V HISTORY: Myalgia, Low Back Pain, Muscle Spasm COMPARISON: No relevant comparison available. FINDINGS: BONES: Mild degenerative facet arthropathy L3-4 through L5-S1. No significant spondylosis, scoliosis, fracture, or visible bony lesion. DISC SPACES: No significant disc height narrowing, subluxation, or endplate abnormality. PARASPINOUS: Negative. No paraspinous abnormality is seen. OTHER: Negative. XR/XR lumbar spine min 4V IMPRESSION: 1. Minimal degenerative changes. 2. No acute abnormality. 3. Suspect bilateral nephrolithiasis. Electronically authenticated by: MANFRED RENE Date: 07/28/2024 11:05 Dictated By: Manfred Rene M.D. Signed By: 07/28/24 1108 DD/ 1105 TD/TT: [employer] [employer]: [place] [address] XRay Report Signed Patient: RAMIN BARRIGA MR#: [id number] : 1990 Acct:[id number] Age/Sex: 33 / F ADM Date: 07/28/24 Loc: LAB Attending Dr: Radha Das M.D. Ordering Physician: Domingo Das M.D. Date of Service: 07/28/24 Procedure(s): XR lum bar spine min 4V Accession Number(s): [id number] cc: Domingo Das M.D. [address] [address] Patient Name: DIANA BARRIGA MRN: [id number] date: 1990 Sex: F Assigned Patient Location: LAB Current Patient Location: LAB Accession/Order Numb er: [id number] Exam Date: 09:45 Report Date: 07/28/2024 11:05 At the request of: DOMINGO DAS Procedure: XR lumbar spine min 4V EXAMINATION: XR lumb ar spine min 4V HISTORY: Myalgia, Lo w Back Pain, Muscle Spasm COMPARISON: No relev ant comparison available. FINDINGS: BONES: Mild degenera tive facet arthropathy L3-4 through L5-S1. No significant spondylosis, scolios is, fracture, or visible bony lesion. DISC SPACES: No significant disc height narrowing, subluxation, or endplate abnormality. PARASPINOUS: Negativ e. No paraspinous abnormality is seen. OTHER: Negative. X R/XR lumbar spine min 4V IMPRESSION: 1. Minimal degenerat da changes. 2. No acute abnormality. 3. Suspect bilateral nephrolithiasis. Electronically authenticated by: MANFRED RENE Date: 07/28/2024 11:05 Dictated By: Manfred Rene M.D. Signed By: 07/28/24 1108 DD/ TD/TT: [place] [employer]: TSH Reviewed date:07/28/2024 07:31:04 PM Interpretation: Performing Lab: Notes/Report: [facility] , Thyroid Stimulating Hormone 1.218 0.358-3.740 uIU/mL Performing Lab: see note ML - [facility] LB T4 Reviewed date:07/28/2024 07:31:04 PM Interpretation: Performing Lab: Notes/Report: [facility] , T4 Thyroxine 8.40 4.80-13.90 ug/dL Performing Lab: see note ML - [facility] LB PROF 14(COMP METB) Reviewed date:07/28/2024 07:31:04 PM Interpretation: Performing Lab: Notes/Report: [facility] , Sodium 139 136-145 mmol/L Potassium 3.8 3.5-5.1 mmol/L Chloride 102 98-107 mmol/L Carbon Dioxide 26.7 21.0-32.0 mmol/L Anion Gap 14.1 Glucose 91 74-106 mg/dL Blood Urea Nitrogen 6.0 7.0-18.0 mg/dL Creatinine 0.90 0.55-1.02 mg/dL Estimated GFR ( Kyung >60 >=60 mL/min/1.73m 2 Estimated GFR (Non- Shefali >60 >=60 mL/min/1.73m 2 BUN Creatinine Ratio 6.7 Calcium 9.4 8.5-10.1 mg/dL Bilirubin Total 0.4 0.2-1.0 mg/dL Aspartate Amino Transferase 28 15-37 U/L Alanine Aminotransferase 44 14-59 U/L Alkaline Phosphatase 74 46-116 U/L Total Protein 7.6 6.4-8.2 g/dL Albumin Level 3.8 3.4-5.0 g/dL Globulin 3.8 Albumin Globulin Ratio 1.0 Performing Lab: see note ML - [facility] LB IRON Reviewed date:07/28/2024 07:31:04 PM Interpretation: Performing Lab: Notes/Report: [facility] , Iron 54.0 50.0-170.0 ug/dL Performing Lab: see note ML - [facility] LB FREE T3 Reviewed date:07/28/2024 07:31:04 PM Interpretation: Performing Lab: Notes/Report: [facility] , Free T3 2.73 2.18-3.98 pg/mL Performing Lab: see note ML - [facility] LB CBC AUTO DIFF Reviewed date:07/28/2024 10:17:10 AM Interpretation: Performing Lab: Notes/Report: [facility] , White Blood Count 6.7 4.0-11.0 10 3/uL Red Blood Count 4.73 4.20-5.40 10 6/uL Hemoglobin 13.3 12.0-16.0 g/dL Hematocrit 40.4 36.0-48.0 % Mean Corpuscular Volume 85.4 81.0-99.0 fL Mean Corpuscular Hemoglobin 28.1 26.7-34.0 pg Mean Corpuscular HGB Conc 32.9 29.9-35.2 g/dL Red Cell Distribution Width 12.7 11.0-15.0 % Platelet Count 276 150-450 10 3/uL Mean Platelet Volume 9.6 9.5-13.5 fL Neutrophils Percent Auto 59.3 43.0-75.0 % Lymphocytes Percent Auto 32.0 20.5-60.0 % Monocytes Percent Auto 6.6 1.7-12.0 % Eosinophils Percent Auto 1.0 0.9-7.0 % Basophils Percent Auto 1.0 0.2-2.0 % Immature Granulocytes Pct Auto 0.1 0.0-0.5 % Neutrophils Absolute Auto 4.0 1.4-6.5 10 3/uL Lymphocytes Absolute Auto 2.1 1.2-3.8 10 3/uL Monocytes Absolute Auto 0.4 0.3-0.8 10 3/uL Eosinophils Absolute Auto 0.1 0.0-0.7 10 3/uL Basophils Absolute Auto 0.1 0.0-0.1 10 3/uL Immature Granulocytes Abs Auto 0.01 0.00-0.03 10 3/uL Performing Lab: see note ML - [facility] LB UA (CLEAN or CATCH) LEAD JAVASCRIPT DEVELOPER or M ICRO IF IND. Reviewed date:04/21/2024 04:58:09 PM Interpretation: Performing Lab: Notes/Report: [facility] , Color Urine YELLOW YELLOW Clarity Urine CLEAR CLEAR Specific [place] Urine 1.020 1.005-1.025 pH Urine 7.5 5.0-9.0 Protein Urine NEGATIVE NEG/TRACE mg/dL Glucose Urine UA NEGATIVE NEGATIVE mg/dL Bilirubin Urine NEGATIVE NEGATIVE Ketones Urine NEGATIVE NEGATIVE mg/dL Blood Urine NEGATIVE NEGATIVE Nitrite Urine NEGATIVE NEGATIVE Urobilinogen Urine 1.0 0.2-1.0 EU/dL Leukocyte Esterase Urine NEGATIVE NEGATIVE Urine Microscopic Indicated NO Performing Lab: see note ML - [facility] LB PROF 14(COMP METB) Reviewed date:04/21/2024 04:58:09 PM Interpretation: Performing Lab: Notes/Report: [facility] , Sodium 137 136-145 mmol/L Potassium 3.6 3.5-5.1 mmol/L Chloride 104 98-107 mmol/L Carbon Dioxide 27.6 21.0-32.0 mmol/L Anion Gap 9.0 Glucose 98 74-106 mg/dL Blood Urea Nitrogen 9.0 7.0-18.0 mg/dL Creatinine 0.78 0.55-1.02 mg/dL Estimated GFR ( Kyung >60 >=60 Estimated GFR (Non- Shefali >60 >=60 BUN Creatinine Ratio 11.5 Calcium 9.0 8.5-10.1 mg/dL Bilirubin Total 0.4 0.2-1.0 mg/dL Aspartate Amino Transferase 20 15-37 U/L Alanine Aminotransferase 31 14-59 U/L Alkaline Phosphatase 64 46-116 U/L Total Protein 7.7 6.4-8.2 g/dL Albumin Level 3.9 3.4-5.0 g/dL Globulin 3.8 Albumin Globulin Ratio 1.0 Performing Lab: see note ML - [facility] LB LACTATE or LACTIC ACID Reviewed date:04/21/2024 04:58:09 PM Interpretation: Performing Lab: Notes/Report: [facility] , Lactate/Lactic Acid 1.0 0.4-2.0 mmol/L Performing Lab: see note ML - [facility] LB CBC AUTO DIFF Reviewed date:04/21/2024 04:58:09 PM Interpretation: Performing Lab: Notes/Report: [facility] , White Blood Count 7.0 4.0-11.0 10 3/uL Red Blood Count 4.74 4.20-5.40 10 6/uL Hemoglobin 13.2 12.0-16.0 g/dL Hematocrit 39.8 36.0-48.0 % Mean Corpuscular Volume 84.0 81.0-99.0 fL Mean Corpuscular Hemoglobin 27.8 26.7-34.0 pg Mean Corpuscular HGB Conc 33.2 29.9-35.2 g/dL Red Cell Distribution Width 12.5 11.0-15.0 % Platelet Count 325 150-450 10 3/uL Mean Platelet Volume 9.7 9.5-13.5 fL Neutrophils Percent Auto 61.0 43.0-75.0 % Lymphocytes Percent Auto 29.1 20.5-60.0 % Monocytes Percent Auto 8.9 1.7-12.0 % Eosinophils Percent Auto 0.3 0.9-7.0 % Basophils Percent Auto 0.6 0.2-2.0 % Immature Granulocytes Pct Auto 0.1 0.0-0.5 % Neutrophils Absolute Auto 4.3 1.4-6.5 10 3/uL Lymphocytes Absolute Auto 2.0 1.2-3.8 10 3/uL Monocytes Absolute Auto 0.6 0.3-0.8 10 3/uL Eosinophils Absolute Auto 0.0 0.0-0.7 10 3/uL Basophils Absolute Auto 0.0 0.0-0.1 10 3/uL Immature Granulocytes Abs Auto 0.01 0.00-0.03 10 3/uL Performing Lab: see note ML - [facility] LB URINE MICROSCOPIC ONLY Reviewed date:04/10/2024 03:22:53 PM Interpretation: Performing Lab: Notes/Report: [facility] , WBC Urine NONE SEEN NONE SEEN #/HPF RBC Urine 0-2 0-2 #/HPF Bacteria Urine NONE SEEN NONE SEEN #/HPF Mucus Urine SMALL NONE SEEN Squamous Epithelial Cell Urine FEW NONE/RARE #/LPF Crystals Seen? Seen None Seen #/HPF Amorphous Sediment Urine FEW Urine Culture Indicated NO Performing Lab: see note ML - [facility] LB UA (CLEAN or CATCH) LEAD JAVASCRIPT DEVELOPER or M ICRO IF IND. Reviewed date:04/10/2024 03:22:53 PM Interpretation: Performing Lab: Notes/Report: [facility] , Color Urine LT. YELLOW YELLOW Clarity Urine CLEAR CLEAR Specific [place] Urine 1.010 1.005-1.025 pH Urine 7.0 5.0-9.0 Protein Urine NEGATIVE NEG/TRACE mg/dL Glucose Urine UA NEGATIVE NEGATIVE mg/dL Bilirubin Urine NEGATIVE NEGATIVE Ketones Urine NEGATIVE NEGATIVE mg/dL Blood Urine TRACE-I NEGATIVE Nitrite Urine NEGATIVE NEGATIVE Urobilinogen Urine 0.2 0.2-1.0 EU/dL Leukocyte Esterase Urine NEGATIVE NEGATIVE Urine Microscopic Indicated YES Performing Lab: see note - [facility] LB PROF 14(COMP METB) Reviewed date:04/10/2024 03:22:53 PM Interpretation: Performing Lab: Notes/Report: [facility] , Sodium 140 136-145 mmol/L Potassium 3.5 3.5-5.1 mmol/L Chloride 105 98-107 mmol/L Carbon Dioxide 27.5 21.0-32.0 mmol/L Anion Gap 11.0 Glucose 106 74-106 mg/dL Blood Urea Nitrogen 7.0 7.0-18.0 mg/dL Creatinine 0.84 0.55-1.02 mg/dL Estimated GFR ( Kyung >60 >=60 Estimated GFR (Non- Shefali >60 >=60 BUN Creatinine Ratio 8.3 Calcium 9.0 8.5-10.1 mg/dL Bilirubin Total 0.3 0.2-1.0 mg/dL Aspartate Amino Transferase 15 15-37 U/L Alanine Aminotransferase 27 14-59 U/L Alkaline Phosphatase 69 46-116 U/L Total Protein 7.3 6.4-8.2 g/dL Albumin Level 3.6 3.4-5.0 g/dL Globulin 3.7 Albumin Globulin Ratio 1.0 Performing Lab: see note ML - [facility] PREG QUANT HCG Reviewed date:04/10/2024 03:22:53 PM Interpretation: Performing Lab: Notes/Report: [facility] , HCG Quantitative <1 5-50 0.2-1 WEEK 50-500 1-2 WEEKS 100-5,000 2-3 WEEKS 500-10,000 3-4 WEEKS 1,000-50,000 4-5 WEEKS 10,000-100,000 5-6 WEEKS 15,000-200,000 6-8 WEEKS 10,000-100,000 2-3 MONTHS Performing Lab: see note ML - [facility] LB DRUG SCREEN RAPID (URINE) Reviewed date:04/10/2024 03:22:53 PM Interpretation: Performing Lab: Notes/Report: [facility] , Cannabinoid Screen Urine POSITIVE NEGATIVE Phencyclidine Screen Urine NEGATIVE NEGATIVE Cocaine Screen Urine NEGATIVE NEGATIVE Methamphetamines Screen Urine NEGATIVE NEGATIVE Opiate Screen Urine NEGATIVE NEGATIVE Amphetamine Screen Urine NEGATIVE NEGATIVE Benzodiazepines Screen Urine NEGATIVE NEGATIVE Tricyclic Antidepressant Urine NEGATIVE NEGATIVE Methadone Screen Urine NEGATIVE NEGATIVE Barbiturates Screen Urine NEGATIVE NEGATIVE Oxycodone Screen Urine NEGATIVE NEGATIVE Buprenorphine Screen Urine NEGATIVE NEGATIVE DRUG CLASS TEST SYSTEM CUT-OFF CONCENTRATIONS ARE FOLLOWS: AMP (Amphetamine): 500 ng/mL BAR (Barbiturates): 200 ng/mL BZO (Benzodiazepines): 150 ng/mL BUP (Buprenorphine): 10 ng/mL ODILIA (Cocaine): 150 ng/mL mAMP (Methamphetamine): 500 ng/mL MTD (Methadone): 200 ng/mL OPI (Opiates): 100 ng/mL OXY (Oxycodone): 100 ng/mL PCP (Phencyclidine): 25 ng/mL THC (Cannabinoids): 50 ng/mL TCA (Trycyclic Antidepressants): 300 ng/mL Performing Lab: see note ML - [facility] LB ACETAMINOPHEN Reviewed date:04/10/2024 03:22:53 PM Interpretation: Performing Lab: Notes/Report: [facility] , Acetaminophen <2.0 10.0-30.0 ug/mL Performing Lab: see note ML - [facility] LB UA DIP NONAUTO WO MICRO (810 02) - IN OFFICE Reviewed date:12/03/2024 02:14:40 PM Interpretation: Performing Lab: Notes/Report: COLOR straw CLARITY clear GLUCOSE neg BILIRUBIN neg KETONE neg SPECIFIC GRAVITY 1.015 BLOOD 50 PH 7 PROTEIN trace UROBILINOGEN neg NITRITE neg LEUKOCYTE ESTERASE trace PROF 14(COMP METB) Reviewed date:09/08/2024 02:54:07 PM Interpretation: Performing Lab: Notes/Report: [facility] , Sodium 141 136-145 mmol/L Potassium 3.7 3.5-5.1 mmol/L Chloride 104 98-107 mmol/L Carbon Dioxide 29.1 21.0-32.0 mmol/L Anion Gap 11.6 Glucose 96 74-106 mg/dL Blood Urea Nitrogen 8.0 7.0-18.0 mg/dL Creatinine 0.83 0.55-1.02 mg/dL Estimated GFR ( Kyung >60 >=60 mL/min/1.73m 2 Estimated GFR (Non- Shefali >60 >=60 mL/min/1.73m 2 BUN Creatinine Ratio 9.6 Calcium 8.8 8.5-10.1 mg/dL Bilirubin Total 0.6 0.2-1.0 mg/dL Aspartate Amino Transferase 16 15-37 U/L Alanine Aminotransferase 23 14-59 U/L Alkaline Phosphatase 59 46-116 U/L Total Protein 7.0 6.4-8.2 g/dL Albumin Level 3.7 3.4-5.0 g/dL Globulin 3.3 Albumin Globulin Ratio 1.1 Performing Lab: see note ML - [facility] LB MAGNESIUM Reviewed date:09/08/2024 02:54:07 PM Interpretation: Performing Lab: Notes/Report: [facility] , Magnesium 1.6 1.8-2.4 mg/dL Performing Lab: see note ML - [facility] LB CRP Reviewed date:09/08/2024 02:54:07 PM Interpretation: Performing Lab: Notes/Report: [facility] , C Reactive Protein <0.50 <=0.50 mg/dL Performing Lab: see note ML - [facility] LB CBC AUTO DIFF Reviewed date:09/08/2024 02:54:07 PM Interpretation: Performing Lab: Notes/Report: [facility] , White Blood Count 6.0 4.0-11.0 10 3/uL Red Blood Count 4.63 4.20-5.40 10 6/uL Hemoglobin 12.9 12.0-16.0 g/dL Hematocrit 39.7 36.0-48.0 % Mean Corpuscular Volume 85.7 81.0-99.0 fL Mean Corpuscular Hemoglobin 27.9 26.7-34.0 pg Mean Corpuscular HGB Conc 32.5 29.9-35.2 g/dL Red Cell Distribution Width 12.8 11.0-15.0 % Platelet Count 320 150-450 10 3/uL Mean Platelet Volume 9.4 9.5-13.5 fL Neutrophils Percent Auto 62.0 43.0-75.0 % Lymphocytes Percent Auto 29.6 20.5-60.0 % Monocytes Percent Auto 7.2 1.7-12.0 % Eosinophils Percent Auto 0.2 0.9-7.0 % Basophils Percent Auto 0.8 0.2-2.0 % Immature Granulocytes Pct Auto 0.2 0.0-0.5 % Neutrophils Absolute Auto 3.7 1.4-6.5 10 3/uL Lymphocytes Absolute Auto 1.8 1.2-3.8 10 3/uL Monocytes Absolute Auto 0.4 0.3-0.8 10 3/uL Eosinophils Absolute Auto 0.0 0.0-0.7 10 3/uL Basophils Absolute Auto 0.1 0.0-0.1 10 3/uL Immature Granulocytes Abs Auto 0.01 0.00-0.03 10 3/uL Performing Lab: see note ML - [facility] LB AMMONIA Reviewed date:09/08/2024 02:54:07 PM Interpretation: Performing Lab: Notes/Report: [facility] , Ammonia <10 11-32 umol/L Performing Lab: see note - [facility] LB Calcium, Ionized, Serum Reviewed date:07/29/2024 01:04:17 PM Interpretation: Performing Lab: Notes/Report: [facility] , Calcium, Ionized, Serum 5.2 4.5-5.6 mg/dL Performed at: CB - [facility] [address] [id number] Travel Registered Nurse Pacu: Travis Menjivar PhD, Phone: [phone] Performing Lab: see note LC - [facility] LB VITAMIN D 25 [place] Reviewed date:07/28/2024 07:31:04 PM Interpretation: Performing Lab: Notes/Report: [facility] , Vitamin D 21.7 <20 ng/mL Vit D deficient 20-<30 ng/mL Vit D insufficient 30-100 ng/mL Vit D sufficient >100 ng/mL Potential Toxicity Performing Lab: see note ML - [facility] LB PHOSPHORUS Reviewed date:07/28/2024 07:31:04 PM Interpretation: Performing Lab: Notes/Report: [facility] , Phosphorus 3.6 2.6-4.7 mg/dL Performing Lab: see note ML - [facility] LB MAGNESIUM Reviewed date:07/28/2024 07:31:04 PM Interpretation: Performing Lab: Notes/Report: [facility] , Magnesium 1.5 1.8-2.4 mg/dL Performing Lab: see note ML - [facility] LB FLUORO FOR SURGICAL PROCEDUR ES (Not yet reviewed by provider) Interpretation: Performing Lab: Notes/Report: Radiology exam is complete. No Radiologist dictation. Please follow up with ordering provider. Performed at: [facility] [address] [id number] Performed at: Urine Culture - [facility] Reviewed date:01/24/2025 03:36:36 PM Interpretation: Performing Lab: Notes/Report: [facility] , Urine Culture - [facility] See Below For Report Urine Culture - [facility] Testing performed at [facility] O:ESCCOL Isolated Urine Culture - [facility] [place] Count Organism: 1.1 Antibiotic Interpretation ANASTASIA Status Urine Culture - [facility] [address] [place] [address] Urine Culture - [facility] Testing performed at [facility] O:ESCCOL Isolated Urine Culture - [facility] [place] Count Organism: 1.1 Antibiotic Interpretation ANASTASIA Status Urine Culture - [facility] See Below For Report Urine Culture - [facility] Testing performed at [facility] O:ESCCOL Isolated Urine Culture - [facility] [place] Count Organism: 1.1 Antibiotic Interpretation ANASTASIA Status Urine Culture - [facility] See Below For Report Urine Culture - [facility] Testing performed at [facility] O:ESCCOL Isolated Urine Culture - [facility] [place] Count Organism: 1.1 Antibiotic Interpretation ANASTASIA Status Urine Culture - [facility] >100,000 Urine Culture - [facility] Testing performed at [facility] O:ESCCOL Isolated Urine Culture - [facility] [place] Count Organism: 1.1 Antibiotic Interpretation ANASTASIA Status Urine Culture - [facility] See Below For Report Urine Culture - [facility] Testing performed at [facility] O:ESCCOL Isolated Urine Culture - [facility] [place] Count Organism: 1.1 Antibiotic Interpretation ANASTASIA Status Urine Culture - [facility] Amikacin S F Urine Culture - [facility] Testing performed at [facility] O:ESCCOL Isolated Urine Culture - [facility] [place] Count Organism: 1.1 Antibiotic Interpretation ANASTASIA Status Urine Culture - [facility] Amoxicillin/Clavula chacho S F Urine Culture - [facility] Testing performed at [facility] O:ESCCOL Isolated Urine Culture - [facility] [place] Count Organism: 1.1 Antibiotic Interpretation ANASTASIA Status Urine Culture - [facility] Ampicillin S F Urine Culture - [facility] Testing performed at [facility] O:ESCCOL Isolated Urine Culture - [facility] [place] Count Organism: 1.1 Antibiotic Interpretation ANASTASIA Status Urine Culture - [facility] Aztreonam S F Urine Culture - [facility] Testing performed at [facility] O:ESCCOL Isolated Urine Culture - [facility] [place] Count Organism: 1.1 Antibiotic Interpretation ANASTASIA Status Urine Culture - [facility] Ceftazidime S F Urine Culture - [facility] Testing performed at [facility] O:ESCCOL Isolated Urine Culture - [facility] [place] Count Organism: 1.1 Antibiotic Interpretation ANASTASIA Status Urine Culture - [facility] Ceftazidime/Avibact am S F Urine Culture - [facility] Testing performed at [facility] O:ESCCOL Isolated Urine Culture - [facility] [place] Count Organism: 1.1 Antibiotic Interpretation ANASTASIA Status Urine Culture - [facility] Ceftolozane/Tazobac lewis S F Urine Culture - [facility] Testing performed at [facility] O:ESCCOL Isolated Urine Culture - [facility] [place] Count Organism: 1.1 Antibiotic Interpretation ANASTASIA Status Urine Culture - [facility] Ciprofloxacin S F Urine Culture - [facility] Testing performed at [facility] O:ESCCOL Isolated Urine Culture - [facility] [place] Count Organism: 1.1 Antibiotic Interpretation ANASTASIA Status Urine Culture - [facility] Ertapenem S F Urine Culture - [facility] Testing performed at [facility] O:ESCCOL Isolated Urine Culture - [facility] [place] Count Organism: 1.1 Antibiotic Interpretation ANASTASIA Status Urine Culture - [facility] Gentamicin S F Urine Culture - [facility] Testing performed at [facility] O:ESCCOL Isolated Urine Culture - [facility] [place] Count Organism: 1.1 Antibiotic Interpretation ANASTASIA Status Urine Culture - [facility] Levofloxacin S F Urine Culture - [facility] Testing performed at [facility] O:ESCCOL Isolated Urine Culture - [facility] [place] Count Organism: 1.1 Antibiotic Interpretation ANASTASIA Status Urine Culture - [facility] Meropenem S F Urine Culture - [facility] Testing performed at [facility] O:ESCCOL Isolated Urine Culture - [facility] [place] Count Organism: 1.1 Antibiotic Interpretation ANASTASIA Status Urine Culture - [facility] Meropenem/Vaborbact am S F Urine Culture - [facility] Testing performed at [facility] O:ESCCOL Isolated Urine Culture - [facility] [place] Count Organism: 1.1 Antibiotic Interpretation ANASTASIA Status Urine Culture - [facility] Nitrofurantoin S F Urine Culture - [facility] Testing performed at [facility] O:ESCCOL Isolated Urine Culture - [facility] [place] Count Organism: 1.1 Antibiotic Interpretation ANASTASIA Status Urine Culture - [facility] Tetracycline S F Urine Culture - [facility] Testing performed at [facility] O:ESCCOL Isolated Urine Culture - [facility] [place] Count Organism: 1.1 Antibiotic Interpretation ANASTASIA Status Urine Culture - [facility] Tigecycline S F Urine Culture - [facility] Testing performed at [facility] O:ESCCOL Isolated Urine Culture - [facility] [place] Count Organism: 1.1 Antibiotic Interpretation ANASTASIA Status Urine Culture - [facility] Tobramycin S F Urine Culture - [facility] Testing performed at [facility] O:ESCCOL Isolated Urine Culture - [facility] [place] Count Organism: 1.1 Antibiotic Interpretation ANASTASIA Status Urine Culture - [facility] Ampicillin/Sulbactam S F Urine Culture - [facility] Testing performed at [facility] O:ESCCOL Isolated Urine Culture - [facility] [place] Count Organism: 1.1 Antibiotic Interpretation ANASTASIA Status Urine Culture - [facility] Cefazolin S F Urine Culture - [facility] Testing performed at [facility] O:ESCCOL Isolated Urine Culture - [facility] [place] Count Organism: 1.1 Antibiotic Interpretation ANASTASIA Status Urine Culture - [facility] Cefepime S F Urine Culture - [facility] Testing performed at [facility] O:ESCCOL Isolated Urine Culture - [facility] [place] Count Organism: 1.1 Antibiotic Interpretation ANASTASIA Status Urine Culture - [facility] Ceftriaxone S F Urine Culture - [facility] Testing performed at [facility] O:ESCCOL Isolated Urine Culture - [facility] [place] Count Organism: 1.1 Antibiotic Interpretation ANASTASIA Status Urine Culture - [facility] Cefuroxime S F Urine Culture - [facility] Testing performed at [facility] O:ESCCOL Isolated Urine Culture - [facility] [place] Count Organism: 1.1 Antibiotic Interpretation ANASTASIA Status Urine Culture - [facility] Piperacillin/Tazoba ctam S F Urine Culture - [facility] Testing performed at [facility] O:ESCCOL Isolated Urine Culture - [facility] [place] Count Organism: 1.1 Antibiotic Interpretation ANASTASIA Status Urine Culture - [facility] Trimethoprim/Sulfa S F Urine Culture - [facility] Testing performed at [facility] O:ESCCOL Isolated Urine Culture - [facility] [place] Count Organism: 1.1 Antibiotic Interpretation ANASTASIA Status Performing Lab: see note ML - [facility] LB SEE REPORT - Negative Cutter Id information not found for OBX-specific online producer legend UA Micro, reflex to culture Reviewed date:01/22/2025 03:38:47 PM Interpretation: Performing Lab: Notes/Report: [facility] , Color Urine LT. YELLOW YELLOW Clarity Urine CLOUDY CLEAR Specific [place] Urine 1.010 1.005-1.025 pH Urine 6.5 5.0-9.0 Protein Urine TRACE NEG/TRACE mg/dL Glucose Urine UA NEGATIVE NEGATIVE mg/dL Bilirubin Urine NEGATIVE NEGATIVE Ketones Urine NEGATIVE NEGATIVE mg/dL Blood Urine MODERATE NEGATIVE Nitrite Urine POSITIVE NEGATIVE Urobilinogen Urine 0.2 0.2-1.0 EU/dL Leukocyte Esterase Urine LARGE NEGATIVE WBC Urine 50-75 NONE SEEN #/HPF RBC Urine 2-5 0-2 #/HPF Bacteria Urine LARGE NONE SEEN #/HPF Mucus Urine NONE SEEN NONE SEEN Squamous Epithelial Cell Urine FEW NONE/RARE #/LPF Crystals Seen? None Seen None Seen #/HPF Cast Seen? NONE SEEN NONE SEEN #/LPF Urine Culture Indicated YES-[facility] Performing Lab: see note ML - [facility] HCG Qualitative* Reviewed date:01/22/2025 03:38:47 PM Interpretation: Performing Lab: Notes/Report: [facility] , HCG Qualitative NEGATIVE NEGATIVE Performing Lab: see note ML - [facility] LB LACTATE or LACTIC ACID Reviewed date:01/22/2025 03:38:47 PM Interpretation: Performing Lab: Notes/Report: [facility] , Lactate/Lactic Acid 1.3 0.4-2.0 mmol/L Performing Lab: see note ML - [facility] LB CBC AUTO DIFF Reviewed date:01/22/2025 03:38:47 PM Interpretation: Performing Lab: Notes/Report: [facility] , White Blood Count 8.2 4.0-11.0 10 3/uL Red Blood Count 4.92 4.20-5.40 10 6/uL Hemoglobin 13.8 12.0-16.0 g/dL Hematocrit 42.5 36.0-48.0 % Mean Corpuscular Volume 86.4 81.0-99.0 fL Mean Corpuscular Hemoglobin 28.0 26.7-34.0 pg Mean Corpuscular HGB Conc 32.5 29.9-35.2 g/dL Red Cell Distribution Width 12.5 11.0-15.0 % Platelet Count 307 150-450 10 3/uL Mean Platelet Volume 9.0 9.5-13.5 fL Neutrophils Percent Auto 58.2 43.0-75.0 % Lymphocytes Percent Auto 33.9 20.5-60.0 % Monocytes Percent Auto 6.8 1.7-12.0 % Eosinophils Percent Auto 0.5 0.9-7.0 % Basophils Percent Auto 0.5 0.2-2.0 % Immature Granulocytes Pct Auto 0.1 0.0-0.5 % Neutrophils Absolute Auto 4.8 1.4-6.5 10 3/uL Lymphocytes Absolute Auto 2.8 1.2-3.8 10 3/uL Monocytes Absolute Auto 0.6 0.3-0.8 10 3/uL Eosinophils Absolute Auto 0.0 0.0-0.7 10 3/uL Basophils Absolute Auto 0.0 0.0-0.1 10 3/uL Immature Granulocytes Abs Auto 0.01 0.00-0.03 10 3/uL Performing Lab: see note ML - [facility] LB NM KIDNEY W FLOW AND FUNCTIO N W PHARMACOLOGICAL INTERVENTION Reviewed date:01/22/2025 03:38:47 PM Interpretation: Performing Lab: Notes/Report: EXAMINATION: NM KIDNEY W FLOW AND FUNCTION W PHARMACOLOGICAL INTERVENTION Performed at: [place] [id number] Performed at: Reason For Referral Diagnosis 1 Cervical radiculopat hy (M54.12) Referral Organization [facility] Referring Provider First Name Kendrick Referring Provider Last Name Thiago Referring Provider Speciality Family Med icine Referred Provider [facility], Physical Therap y Referred Provider Specialty Physical Med icine and Rehabilitation Referral Priority Routine Diagnosis 1 Pyelonephritis (N12) Referral Organization [facility] Referring Provider First Name Kendrick Referring Provider Last Name Thiago Referring Provider Speciality [facility] icine Referred Organization [facility] Referred Provider BREONNA SANCHEZ Referred Address [address],[place], [place],[address], Referred Provider Specialty Urology Referral Priority Routine Medications Medication SIG (Take, Route, Frequency, Duration) [...] monthly (1 point) Points 1 Interpretation Negative Problems Problem Type SNOMED Code ICD Code Onset Dates Problem Status W/U Status Risk Notes Problem 59903724 Essential (primary) hypertension (I10) Active confirmed Problem 019836900 Gastritis and duodenitis (535.50) Active confirmed Problem 808132681 Bipolar disorder , unspecified (F31.9) Active confirmed Problem Hypomagnesemia (182287658) Hypomagnesemia (E83.42) Active confirmed Problem 38580704 Anxiety disorder , unspecified (F41.9) Active confirmed Problem 207229595 Insomnia, unspecified (G47.00) Active confirmed Problem 41279430 Other chronic pa in (G89.29) Active confirmed Problem Streptococcal pharyngitis (09775097) Streptococcal pharyngitis (J02.0) Active confirmed Problem 883074219 Calculus of kidn ey (N20.0) Active confirmed Problem Sprain of calcaneofibular ligament (34528422) Sprain of calcaneofibular ligament of left ankle, initial encounter (S93.412A) Active confirmed Problem Gastroesophageal reflux disease (031709197) GERD (gastroesophageal reflux disease) (K21.9) Active confirmed Problem Lumbar radiculopathy (356070727) Lumbar radiculopathy (M54.16) Active confirmed Problem Kidney stone (43445277) Kidney stones (N20.0) Active confirmed Problem Nephrolithiasis (91457355) Nephrolithiasis (N20.0) Active confirmed Problem Gastritis (8877574) Gastritis (K29.70) Active c onfirmed Problem Well adult (560917986) Well adult (Z00.00) Active confirmed Problem Lesion of ulnar nerve (630498391) Ulnar nerve compression, right (G56.21) Active confirmed Problem Pyelonephritis (86594473) Pyelonephritis (N12) Active confirmed Problem Muscle spasm (62777315) Muscle spasm (M62.838) Active confirmed Problem Overweight (633201374) Over weight (E66.3) Active confirmed Problem Lesion of ulnar nerve (167771980) Ulnar nerve compression, left (G56.22) Active confirmed Problem Entrapment of left ulnar nerve (691050664823539) Entrapment of left ulnar nerve (G56.22) Active confirmed Problem Superficial thrombophlebitis (7397494) Superficial thrombophlebitis (I80.9) Active confirmed Problem Mass of scalp (914157236) Mass of scalp (R22.0) Active confirmed Problem Lesion of ulnar nerve (101875280) Impingement of right ulnar nerve (G56.21) Active confirmed Problem Acute urinary tract infection (211952416) Acute UTI (N39.0) Active confirmed Problem Kidney stone (16623519) Kidney stone on right side (N20.0) Active confirmed Problem Retroflexion of uterus (71911811) Retroflexion of uterus (N85.4) Active confirmed Problem 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, 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 Problem Muscle pain (80667430) Myalgia, unspecified site (M79.10) Active confirmed Problem Vesicoureteric reflux (disorder) (202122516) VUR (vesicoureteric reflux) (N13.70) Active confirmed Problem 98709150 Depression, unspecified (F32.A) Active confirmed Problem 474151877 Low back pain, unspecified (M54.50) Active confirmed Vital Signs Temperature 98.4 degrees Fahrenheit 06/29/2024 Blood pressure diastolic 86 mm Hg 03/23/2025 Height 66 in 03/23/2025 Blood pressure systolic 118 mm Hg 03/23/2025 Weight 192.4 lbs 03/23/2025 BMI 31.05 kg/m2 03/23/2025 Procedures Procedure Date Ordered Date Performed Result Body Sit e Voiding Cystourethrogram 01/05/2025 01/09/2025 N/A ESWL 01/24/2025 01/24/2025 N/A Ureteral Laser Lithotripsy 01/24/2025 01/24/2025 N/A Encounters Encounter Location Date Provider Diagnosis [facility] [address] [place] [address] 04/19/2024 Kendrick Hoy Nephrolithiasis N20. 0 ; Ulnar nerve compression, left G56.22 and Ulnar nerve compression, right G56.21 [facility] [address] [place] [address] 07/28/2024 Kendrick Hoy Myalgia, unspecified site M79.10 ; Low back pain, unspecified M54.50 and Muscle spasm M62.838 [place] [address] [place] [address] 09/30/2024 Kendrick Hoy Kidney stones N20.0 and Pyelonephritis N[address] [address] 01/24/2025 Breonna Sanchez VUR (vesicoureteric reflux) N13.70 ; Kidney stones N20.0 and UTI (urinary tract infection), uncomplicated N39.[address] [place] [address] 03/16/2025 Breonna Sanchez Dysuria R30.0 and UT I (urinary tract infection), uncomplicated N39.[address] [address] 11/24/2024 Breonna Sanchez Acute UTI N39.0 ; Ki dney stones N20.0 ; Pyelonephritis N12 and VUR (vesicoureteric reflux) N13.70 [place] [place] [address] 09/07/2024 Kendrick Hoy Well adult Z00.00 ; Hypomagnesemia E83.42 ; GERD (gastroesophageal reflux disease) K21.9 and Kidney stones N20.0 [place] [address] [place] [address] 04/22/2024 Kendrick Hoy Kidney stones N20.0 and Pyelonephritis N12 [place] [address] [place] [address] 05/04/2024 Kendrick Hoy Cervical radiculopat hy M54.12 [address] [place] [address] 06/29/2024 Kendrick Hoy Acute non-recurrent sinusitis, unspecified location J01.90 and Nasal congestion R09.81 [place] [address] [place] [address] 10/06/2024 Kendrick Hoy Acute UTI N39.[address] [place] [address] 12/01/2024 Kendrick Hoy Acute UTI N39.0 ; UT I (urinary tract infection), uncomplicated N39.0 and Dysuria R30.0 [facility] [address] [place] [facility] [place] [address] 02/01/2025 Kendrick Hoy Kidney stones N20.0 [facility] [address] [place] [facility] [place] [address] 03/15/2025 Kendrick Hoy Essential (primary) hypertension I10 and Low back pain, unspecified M54.50 [facility] [address] [place] [facility] [place] [address] 03/23/2025 Kendrick Das Lumbar radiculopathy M54.[address] [place] [address] 01/26/2025 Breonna Sanchez [facility] [address] [place] [address] 03/16/2025 Breonna Sanchez Urinary tract infect ion, site not specified N39.0 [facility] [address] [place] [facility] [place] [address] 09/07/2024 Kendrick Das Pyelonephritis N12 a nd Kidney stones N20.0 [facility] [address] [place] [facility] [place] [address] 09/08/2024 Kendrick Das [facility] [address] [place] [facility] [place] [address] 10/03/2024 Kendrick Das [facility] [address] [place] [address] 01/05/2025 Breonna Sanchez VUR (vesicoureteric reflux) N13.70 [facility] [address] [place] [facility] [place] [address] 01/23/2025 Kendrick Joséy [facility] [address] [place] [facility] [place] [address] 01/24/2025 Kendrick Joséy [facility] [address] [place] [facility] [place] [address] 06/29/2024 Kendrick Das [facility] [address] [place] [address] 07/28/2024 Kendrick Das [facility] [address] [place] [address] 07/29/2024 Kendrick Das Assessments Encounter Date Diagnosis (ICD Code) Assessment Notes Treatment Notes Treatment Clinical Notes Section Notes 09/07/2024 Hypomagnesemia (ICD-10 - E83.42) 09/07/2024 Well adult (ICD-10 - Z00.00) 04/19/2024 Nephrolithiasis (ICD-10 - N20.0) 04/19/2024 Ulnar nerve compression, left (ICD-10 - G56.22) 04/22/2024 Kidney stones (ICD-10 - N20.0) 04/22/2024 Pyelonephritis (ICD-10 - N12) 05/04/2024 Cervical radiculopathy (ICD-10 - M54.12) 07/28/2024 Myalgia, unspecified site (ICD-10 - M79.10) needs labs adn x-ray low back and hips 07/28/2024 Low back pain, unspecified (ICD-10 - M54.50) 06/29/2024 Acute non-recurrent sinusitis, unspecified location (ICD-10 - J01.90) Rest and drink more liquids, especially water. You may use a humidifier or vaporizer to help keep the drainage moist. Ekly-daw-nhojprm Nasal Saline may help the stuffy and runny nose. Use Ibuprofen and or Tylenol as needed for fever, chills, body aches or pain. Children 5 years old should not be given hfyx-gvp-eluirsv cough and cold medications such as guaifenesin and dextromethorphan. If you're over age 5, you may try ezde-mqq-exrnszw cold medications such as guaifenesin and dextromethorphan, or multi-symptom cold reliever such as Dayquil to help reduce the symptoms. Antibiotics have been prescribed. You should take these until completed and follow the directions. Antibiotics can sometimes cause upset stomach, and in rare cases, serious allergic reactions or serious gastrointestinal problems. If you start having severe abdominal pain, severe vomiting, or bloody diarrhea, you should be reevaluated by your physician or urgent care immediately. Follow up with your Primary Care Provider or return to clinic if symptoms do not improve within 3-5 days 11/24/2024 Acute UTI (ICD-10 - N39.0) 09/30/2024 Kidney stones (ICD-10 - N20.0) 09/30/2024 Pyelonephritis (ICD-10 - N12) 10/06/2024 Acute UTI (ICD-10 - N39.0) 01/24/2025 Kidney stones (ICD-10 - N20.0) 12/01/2024 Acute UTI (ICD-10 - N39.0) 12/01/2024 UTI (urinary tract infection), uncomplicated (ICD-10 - N39.0) Drink plenty of water. Avoid drinks like coffee, alcohol and soft frinks, as these can irritate your bladder and aggravate your frequent or urgent need to urinate. Apply a warm heating pad to your abdomen to minimize bladder pressure or discomfort. You have been prescribed antibiotics for a urinary tract infection. Antibiotics may bother your stomach, so try taking them with a light meal (unless instructed otherwise by your pharmacist). It is important to take them until they are finished. You can use oifr-psb-yjbhlmr acetaminophen or ibuprofen if needed for pain. You should follow up with your Primary Care Physician or return to clinic if not improving in the next 3-5 days. 02/01/2025 Kidney stones (ICD-10 - N20.0) 03/16/2025 Dysuria (ICD-10 - R30.0) 03/16/2025 UTI (urinary tract infection), uncomplicated (ICD-10 - N39.0) 03/15/2025 Essential (primary) hypertension (ICD-10 - I10) 03/15/2025 Low back pain, unspecified (ICD-10 - M54.50) 03/23/2025 Lumbar radiculopathy (ICD-10 - M54.16) 09/07/2024 Kidney stones (ICD-10 - N20.0) 09/07/2024 Pyelonephritis (ICD-10 - N12) 01/05/2025 VUR (vesicoureteric reflux) (ICD-10 - N13.70) 03/16/2025 Urinary tract infection, site not specified (ICD-10 - N39.0) 01/24/2025 VUR (vesicoureteric reflux) (ICD-10 - N13.70) 12/01/2024 Dysuria (ICD-10 - R30.0) 01/24/2025 UTI (urinary tract infection), uncomplicated (ICD-10 - N39.0) 07/28/2024 Muscle spasm (ICD-10 - M62.838) 11/24/2024 Kidney stones (ICD-10 - N20.0) 06/29/2024 Nasal congestion (ICD-10 - R09.81) 04/19/2024 Ulnar nerve compression, right (ICD-10 - G56.21) 09/07/2024 GERD (gastroesophageal reflux disease) (ICD-10 - K21.9) 09/07/2024 Kidney stones (ICD-10 - N20.0) 11/24/2024 Pyelonephritis (ICD-10 - N12) 11/24/2024 VUR (vesicoureteric reflux) (ICD-10 - N13.70) 05/04/2024 Other Recommended to rest and use a heating pad on the area. Take NSAIDs for pain as needed 11/24/2024 Other Atrophic left kidney. Needs renogram to check function of left kidney Suspect reflux. Will check [facility]. Litholink for kidney stones. 09/30/2024 Other sending over fo r icv fluids 01/24/2025 Other Left stent in p lace with bilateral kidney stones. Will need Left URS w laser and right SWL. 03/16/2025 Other Cont methenaine Urine for culture Bactrim called in. 03/23/2025 Other Recommended to rest and use a heating pad on the area. Take NSAIDs for pain as needed Plan Of Treatment Pending Test Test Name Order Date CMP (COMPLETE METABOLIC PANEL) 3 CMP (COMPLETE METABOLIC PANEL) 4 CULTURE, URINE w SENSITIVITY 03/16/2025 HEMOGLOBIN A1C (GLYCO) 09/16/2023 IRON, TOTAL 09/16/2023 IRON, TOTAL 07/28/2024 LITHOLINK, 24 HR URINE 11/24/2024 LIPID PANEL (CHOL/TRIG/HDL/LDL) 09/16/20 23 CBC WITH DIFF 09/16/2023 CBC WITH DIFF 07/28/2024 NUC MED Renal Flow with Lasix 11/24/2024 Insulin Level 09/16/2023 Covid-19 PCR ([facility]) 06/29/2024 SED RATE WESTERGREN 09/07/2024 VIT B12 AND FOLATE 07/28/2024 MRI LSPINE WO CON 03/23/2025 XR HIP LT 2 3V W PELVIS 07/28/2024 XR LSPINE MIN 4 VIEWS 07/28/2024 XR LSPINE MIN 4 VIEWS 03/23/2025 THYROID PANEL (T4/TSH/FREE T3) THYROID PANEL (T4/TSH/FREE T3) 3 XR HIP RT 2 3V W PELVIS 07/28/2024 XR sacrum coccyx min 2V 03/23/2025 FLUORO FOR SURGICAL PROCEDURES Next Appt Details Provider Name:Kendrick Das, 10:00:00 AM, [address] [facility], [place], [address], Provider Name:Breonna Sanchez , 09/21/2025 01:50:00 PM, [address] [facility], [place], [address], Insurance Providers Payer Name Payer Address Payer Phone Subscriber Number Group Number Insured Name Patient Relationship to Insured Coverage Start Date Coverage End Date [employer] [address] [place] [address] [phone] [id number] Wesly Barriga Spouse - patient is the spouse of the insured Medications Administered Medication Instructions Date of Administration Dosage Notes Ceftriaxone 1 gram 10/06/2024 1 g 1 gm Kenalog-40 04/19/2024 120 mg Ketorolac Tromethamine 04/19/2024 60 mg Ketorolac Tromethamine 03/23/2025 60 mg Promethazine, 25 mg 10/06/2024 25 mg 25 Triamcinolone 40 mg/ml 03/23/2025 120 mg Medical (General) History Medical History History ICD Code Kidney Stone, Right Ulnar Nerve Entrapment, left and right Retroflexion of uterus N85.4 Obstruction of ureter, unspecified later ality N13.5 Sprain of calcaneofibular ligament of le ft ankle, initial encounter S93.412A Myalgia, unspecified site M79.10 Mass of scalp R22.0 Pyelonephritis N12 Streptococcal pharyngitis J02.0 Superficial thrombophlebitis I80.9 Kidney stones N20.0 Impingement of right ulnar nerve G56.21 Entrapment of left ulnar nerve G56.22 Depression Anxiety Surgical History Surgery Date(Month/Year) Hysterectomy, Bilat Salpingectomy- Bernie 05/06/23 urethral dilation Right laser lithotripsy - Dr Villa 12/08 21 ureteral stent placement on Left side 01/22/25 Cystoscopy, Holmium Laser Li thotripsy, Lt stent replacement, Rt stent placement- Dr Desai 01/27/25 Cholecystectomy Right Renal Calculus 05/24/2020 Cystoscopy, Left retrograde pyelogram, u reteral stent- Dr. Souza's Hospitalization History Reason Date(Month/Year) Multiple for kidney stones and stents
--- OUTSIDE RECORDS SUMMARY | 2025-03-28 06:49 | XMS_ITS | Encounter Summary ---
Author Organization [facility] Address [address] [place] [address] Care Team Providers Care Remelt Pan Tank Operator Name Role Phone Ignacio Das MD Primary Care Provider [phone] Encounter Details Date Type Department Care Team (Late Contact Info) Description 12/23/2023 Clinisync Result Encounter [facility] External Department Unsolicited Jefferson Gibbs, [address] [place] [address] Social History Tobacco Use Types Packs/Day Years [...] 04/05/2025 1:00 PM EDT Office Visit [facility] [address] [place] [phone] [place] [address] 04/10/2025 9:50 AM EDT Office Visit [facility] [address] [place] [phone] Alejandra Leiva MD [address] [place] [address] documented as of this encounter Procedures Procedure Name Priority Date/Time Associated Diagnosis Comments US BREAST LT LIMITED 12/23/2023 1:47 PM EST documented in this encounter Results * US BREAST LT LIMITED (12/23/2023 1:47 PM EST) Anatomical Region Laterality Modality Other 12/23/2023 1:47 PM EST Narrative 12/23/2023 1:48 [place] [address] Ultrasound Report Signed Patient: DIANA BEAVER MR#: [id number] : 1990 Acct:[id number] Age/Sex: 33 / F ADM Date: 12/23/23 Loc: MAMMO Attending Dr: Jefferson Gibbs D.O. Ordering Physician: Jefferson Gibbs D.O. Date of Service: 12/23/23 Procedure(s): US breast LT limited Accession Number(s): [id number] cc: Jefferson Gibbs D.O.; Ignacio Das M.D. Patient Name: DIANA BEAVER MR#: [id number] : 1990 Exam Date: 12/23/2023 Ordering Doctor: VARSHA Chacon . RADIOLOGY REPORT PROCEDURE: MM TOMOSYNTHESIS DIAGNOSTIC BI, 12/23/2023, 12:48 US BREAST LT LIMITED, 12/23/2023, 12:59 COMPARISON: None. INDICATIONS: Mass Of LE[place] Breast N63.20, Enlarged Lymph Nodes R59.1 Calculator Name NCI Breast Cancer Risk Assessment Tool 5 Year Breast Cancer Risk Not Reported. Lifetime Breast Cancer Risk Not Reported. Personal Breast Cancer No Personal Ovarian Cancer No Treatments None Family Cancers None LOCATION: The [facility] BREAST COMPOSITION: Extremely dense, which lowers the sensitivity of mammography. FINDINGS: DIAGNOSTIC CATEGORY 4--SUSPICIOUS FOR MALIGNANCY. FINDING DOES NOT EXHIBIT CLASSIC FINDINGS OF BREAST CANCER: The breasts are medium in size.Scattered benign-appearing calcifications are present. Scattered benign-appearing nodules are present. Scattered benign-appearing lymph nodes are present. Bilateral nipple piercings. RIGHT BREAST: No significant suspicious finding. LEFT BREAST: Focal increased density lower outer quadrant with a 3.3 x 2.8 cm central mass best observed on tomographic images. Ultrasound demonstrates an intraductal heterogeneous mass measuring 2.7 x 2.0 x 1.3 cm with multiple calcifications lobular margins and hypervascularity. The etiology is unknown. Ultrasound-guided core biopsy is recommended to exclude malignancy RECOMMENDATIONS: ULTRASOUND-GUIDED CORE BIOPSY: LEFT BREAST 2.7 cm intraductal mass PLEASE NOTE: A NORMAL MAMMOGRAM DOES NOT EXCLUDE THE POSSIBILITY OF BREAST CANCER. A CLINICALLY SUSPICIOUS PALPABLE LUMP SHOULD BE BIOPSIED. Dictated by: Andrzej Perez MD on 12/23/2023 at 13:42 Approved by: Andrzej Perez MD on 12/23/2023 at 13:46 Dictated By: Andrzej Perez M.D. Signed By: 12/23/23 1348 DD/ 1347 TD/TT: Sales Advisory Manager: Procedure Note Radiology, Radiologist, - 12/23/2023 [place] [address] Ultrasound Report Signed Patient: DIANA BEAVER LMR#: [id number] : 1990Acct:[id number] Age/Sex: 33 / FADM Date: 12/23/23 Loc: MAMMO Attending Dr: Jefferson Gibbs D.O. Ordering Physician: Jefferson Gibbs D.O. Date of Service: 12/23/23 Procedure(s): US breast LT limited Accession Number(s): [id number] cc: Jefferson Gibbs D.O.; Ignacio Das M.D. Patient Name: DIANA BEAVER MR#: [id number] : 1990 Exam Date: 12/23/2023 Ordering Doctor: VARSHA Chacon . RADIOLOGY REPORT PROCEDURE: MM TOMOSYNTHESIS DIAGNOSTIC BI, 12/23/2023, 12:48 US BREAST LT LIMITED, 12/23/2023, 12:59 COMPARISON: None. INDICATIONS: Mass Of LEft Breast N63.20, Enlarged Lymph Nodes R59.1 Calculator Name NCI Breast Cancer Risk Assessment Tool 5 Year Breast Cancer Risk Not Reported. Lifetime Breast Cancer Risk Not Reported. Personal Breast Cancer No Personal Ovarian Cancer No Treatments None Family Cancers None LOCATION: [facility] BREAST COMPOSITION: Extremely dense, which lowers the sensitivity of mammography. FINDINGS: DIAGNOSTIC CATEGORY 4--SUSPICIOUS FOR MALIGNANCY. FINDING DOES NOT EXHIBIT CLASSIC FINDINGS OF BREAST CANCER: The breasts are medium in size.Scattered benign-appearing calcificationsare present. Scattered benign-appearing nodules are present. Scattered benign-appearing lymph nodes are present. Bilateral nipple piercings. RIGHT BREAST: No significant suspicious finding. LEFT BREAST: Focal increased density lower outer quadrant with a 3.3 x2.8 cm central mass best observed on tomographic images. Ultrasound demonstratesan intraductal heterogeneous mass measuring 2.7 x 2.0 x 1.3 cm with multiple calcifications lobular margins and hypervascularity. The etiology isunknown. Ultrasound-guided core biopsy is recommended to exclude malignancy RECOMMENDATIONS: ULTRASOUND-GUIDED CORE BIOPSY: LEFT BREAST 2.7 cm intraductal mass PLEASE NOTE: A NORMAL MAMMOGRAM DOES NOT EXCLUDE THE POSSIBILITY OFBREAST CANCER. A CLINICALLY SUSPICIOUS PALPABLE LUMP SHOULD BE BIOPSIED. Dictated by: Andrzej Perez MD on 12/23/2023 at 13:42 Approved by: Andrzej Perez MD on 12/23/2023 at 13:46 Dictated By: Andrzej Perez M.D. Signed By:12/23/23 1348 DD/ 1347 TD/TT: Sales Advisory Manager: [facility] Final Result documented in this encounter Visit Diagnoses Not on filedocumented in this encounter Care Teams Remelt Pan Tank Operator Relationship Specialty Start Date End Date Ignacio Das MD PCP - General Family Medicine 04/13/23 documented as of this encounter
--- OUTSIDE RECORDS SUMMARY | 2025-03-28 06:49 | XMS_ITS | Encounter Summary ---
Author Organization [facility] Address [address] [place] [address] Care Team Providers Care Environmental Construction Engineer Name Role Phone Ignacio Das MD Primary Care Provider [phone] Encounter Details Date Type Department Care Team (Late Contact Info) Description 12/29/2023 Clinisync Result Encounter [facility] External Department Unsolicited Jefferson Gibbs, [address] [place] [address] Social History Tobacco Use Types Packs/Day Years [...] 04/05/2025 1:00 PM EDT Office Visit [facility] OB [address] [place] [phone] [place] [address] 04/10/2025 9:50 AM EDT Office Visit [facility] [address] [place] [phone] Alejandra Leiva MD [address] [place] [address] documented as of this encounter Procedures Procedure Name Priority Date/Time Associated Diagnosis Comments MM POST BIOPSY LT 12/29/2023 8:5 7 AM EDT documented in this encounter Results * MM POST BIOPSY LT (12/29/2023 8:57 AM EDT) Anatomical Region Laterality Modality Other 12/29/2023 8:57 AM EDT Narrative 12/29/2023 8:57 [place] [address] Mammography Report Signed Patient: DIANA BEAVER MR#: [id number] : 1990 Acct:[id number] Age/Sex: 33 / F ADM Date: 12/29/23 Loc: US Attending Dr: Jefferson Gibbs D.O. Ordering Physician: Jefferson Gibbs D.O. Results: Date of Service: 12/29/23 Follow Up: Procedure(s): MM post biopsy LT Accession Number(s): [id number] cc: Jefferson Gibbs D.O.; Ignacio Das M.D. Patient Name: DIANA BEAVER MR#: [id number] : 1990 Exam Date: 12/29/2023 Ordering Doctor: DR Jefferson Gibbs . RADIOLOGY REPORT PROCEDURE: MM POST BIOPSY LT COMPARISON: MM TOMOSYNTHESIS DIAGNOSTIC BI, 12/23/2023. INDICATIONS: Left Breast Mass BREAST COMPOSITION: FINDINGS: BIOPSY MARKER: A metallic marker has been placed in the targeted location within the lower outer quadrant of the left breast. BREAST FINDINGS: Postprocedural changes with increased densities subcutaneous edema. Nipple piercing Dictated by: Andrzej Perez MD on 12/29/2023 at 08:56 Approved by: Andrzej Perez MD on 12/29/2023 at 08:57 Dictated By: Andrzej Perez M.D. Signed By: 12/29/23 0857 DD/ 0857 TD/TT: Produce Specialist: Procedure Note Radiology, Radiologist, - 12/29/2023 The [place] [id number] Mammography Report Signed Patient: DIANA BEAVER LMR#: [id number] : 1990Acct:[id number] Age/Sex: 33 / FADM Date: 12/29/23 Loc: US Attending Dr: Jefferson Gibbs D.O. Ordering Physician: Jefferson Gibbs D.O.Results: Date of Service: 12/29/23Follow Up: Procedure(s): MM post biopsy LT Accession Number(s): [id number] cc: Jefferson Gibbs D.O.; Ignacio Das M.D. Patient Name: DIANA BEAVER MR#: [id number] : 1990 Exam Date: 12/29/2023 Ordering Doctor: DR Jefferson Gibbs . RADIOLOGY REPORT PROCEDURE: MM POST BIOPSY LT COMPARISON: MM TOMOSYNTHESIS DIAGNOSTIC BI, 12/23/2023. INDICATIONS: Left Breast Mass BREAST COMPOSITION: FINDINGS: BIOPSY MARKER: A metallic marker has been placed in the targetedlocation within the lower outer quadrant of the left breast. BREAST FINDINGS: Postprocedural changes with increased densities subcutaneous edema. Nipple piercing Dictated by: Andrzej Perez MD on 12/29/2023 at 08:56 Approved by: Andrzej Perez MD on 12/29/2023 at 08:57 Dictated By: Andrzej Perez M.D. Signed By:12/29/23 0857 DD/ 0857 TD/TT: Produce Specialist: Jefferson Gibbs DO [facility] Final Result documented in this encounter Visit Diagnoses Not on filedocumented in this encounter Care Teams Environmental Construction Engineer Relationship Specialty Start Date End Date Ignacio Das MD PCP - General Family Medicine 04/13/23 documented as of this encounter
--- OUTSIDE RECORDS SUMMARY | 2025-03-28 06:49 | XMS_ITS | Encounter Summary ---
Author Organization [facility] Address [address] [place] [address] Care Team Providers Care Finance Associate Name Role Phone Ignacio Das MD Primary Care Provider [phone] Encounter Details Date Type Department Care Team (Late Contact Info) Description 12/23/2023 Clinisync Result Encounter [facility] External Department Unsolicited Tamiko Chacon PA [address] [place], [facility] Social History Tobacco Use Types Packs/Day Years [...] 04/05/2025 1:00 PM EDT Office Visit [facility] [address] [place] [address] Jefferson Gibbs, DO [address] [place] [address] 04/10/2025 9:50 AM EDT Office Visit [facility] [address] [place] [phone] Alejandra Leiva MD [address] [place] [address] documented as of this encounter Procedures Procedure Name Priority Date/Time Associated Diagnosis Comments MM TOMOSYNTHESIS DIAGNOSTIC BI 12/23/2023 1:47 PM EST documented in this encounter Results * MM TOMOSYNTHESIS DIAGNOSTIC BI (12/23/2023 1:47 PM EST) Anatomical Region Laterality Modality Other 12/23/2023 1:47 PM EST Narrative 12/23/2023 1:48 [place] [address] Mammography Report Signed Patient: DIANA BEAVER MR#: [id number] : 1990 Acct:[id number] Age/Sex: 33 / F ADM Date: 12/23/23 Loc: MAMMO Attending Dr: Jefferson Gibbs D.O. Ordering Physician: Tamiko Chacon Results: Date of Service: 12/23/23 Follow Up: Procedure(s): MM tomosynthesis diagnostic BI Accession Number(s): [id number] cc: Tamiko Chacon; Ignacio Das M.D. Patient Name: DIANA BEAVER MR#: [id number] : 1990 Exam Date: 12/23/2023 Ordering Doctor: [...] Treatments None Family Cancers None LOCATION: The [facility] BREAST COMPOSITION: Extremely dense, which lowers the [...] Signed By: 12/23/23 1348 DD/ 1347 TD/TT: Golf Sales Manager: Procedure Note Radiology, Radiologist, - 12/23/2023 [place] [address] Mammography Report Signed Patient: DIANA BEAVER LMR#: [id number] : 1990Acct:[id number] Age/Sex: 33 / FADM Date: 12/23/23 Loc: MAMMO Attending Dr: Jefferson Gibbs D.O. Ordering Physician: Tamiko Najeraults: Date of Service: 12/23/23Follow Up: Procedure(s): MM tomosynthesis diagnostic BI Accession Number(s): [id number] cc: Tamiko Chacon; Ignacio Das M.D. Patient Name: DIANA BEAVER MR#: [id number] : 1990 Exam Date: 12/23/2023 Ordering Doctor: [...] Treatments None Family Cancers None LOCATION: The [facility] BREAST COMPOSITION: Extremely dense, which lowers the [...] on 12/23/2023 at 13:46 Dictated By: Andrzej Perze M.D. Signed By:12/23/23 1348 DD/ 1347 TD/TT: Golf Sales Manager: Tamiko MADDOX [facility] Final Result documented in this encounter Visit Diagnoses Not on filedocumented in this encounter Care Teams Finance Associate Relationship Specialty Start Date End Date Ignacio Das MD PCP - General Family Medicine 04/13/23 documented as of this encounter
--- OUTSIDE RECORDS SUMMARY | 2025-03-28 06:50 | XMS_ITS | Encounter Summary ---
Author Organization [facility] Address [address] [place] [address] Care Team Providers Care Drier Operator Head Name Role Phone Ignacio Das MD Primary Care Provider [phone] Encounter Details Date Type Department Care Team ([facility] Contact Info) Description 04/30/2023 Abstract [facility] OB [address] [place] [address] Jefferson Gibbs [address] [place], [place] [phone] Social History Tobacco Use Types Packs/Day Years Used Date Smoking Tobacco: Never Assessed Comments No Sex and Gender Information Value Date Recorded Sex Assigned at Not on file Legal Sex Female 11:20 PM EDT Gender Identity Not on file Sexual Orientation Not on file COVID-19 Exposure Response Date Recorded In the last 10 days, have yo u been in contact with someone who was confirmed or suspected to have Coronavirus/COVID-19? No / Unsure 04/13/2023 1:22 PM EDT documented as of this encounter Plan of Treatment Upcoming Encounters Date Type Department Care Team ([facility] Contact Info) Description 04/05/2025 1:00 PM EDT Office Visit [facility] [address] [facility] [place] [address] Jefferson Gibbs [address] [place], [place] [phone] 04/10/2025 9:50 AM EDT Office Visit [facility] [address] [place] [phone] Alejandra Leiva MD [address] [place] [address] documented as of this encounter Visit Diagnoses Not on filedocumented in this encounter Care Teams Drier Operator Head Relationship Specialty Start Date End Date Ignacio Das MD PCP - General Family Medicine 04/13/23 documented as of this encounter
--- OUTSIDE RECORDS SUMMARY | 2025-03-28 06:50 | XMS_ITS | Encounter Summary ---
Author Organization [facility] Address [address] [facility] [place] [address] Care Team Providers Care Occupational Health And Safety Manager Name Role Phone Ignacio Das MD Primary Care Provider [phone] Encounter Details Date Type Department Care Team (Late Contact Info) Description 05/15/2023 Abstract [facility] [address] [place] [phone] Tamiko Chacon PA [address] [place], [facility] Social History Tobacco Use Types Packs/Day Years Used Date Smoking Tobacco: Never Tobacco Cessation:Counseling Given: Not Answered Alcohol Use Standard Drinks/Week Comments Never 0 [...] suspected to have Coronavirus/COVID-19? No / Unsure 05/18/2023 10:04 AM EDT documented as of this encounter Plan of Treatment Upcoming Encounters Date Type Department Care Team (Late Contact Info) Description 04/05/2025 1:00 PM EDT Office Visit [facility] [address] [place] [address] Jefferson Gibbs DO [address] [place], [place] [address] 04/10/2025 9:50 AM EDT Office Visit [facility] [address] [place] [phone] Alejandra Leiva MD [address] [place] [address] documented as of this encounter Visit Diagnoses Not on filedocumented in this encounter Care Teams Occupational Health And Safety Manager Relationship Specialty Start Date End Date Ignacio Das MD PCP - General Family Medicine 04/13/23 documented as of this encounter
--- OUTSIDE RECORDS SUMMARY | 2025-03-28 06:50 | XMS_ITS | CCD ---
Author Organization [facility] Care Team Providers Care Power Tong Operator Name Role Phone Domingo Snyder MD Unavailable DANIEL MONTGOMERY Attending Unavailable DOMINGO SNYDER Referring Unavailable Domingo Snyder Primary Care Physician [phone] DR LANE Primary Care Unavailable [...] Care Unavailable VARUN ., ORA Admitting Unavailable RAYGOZA ., DR CASTELLANO Admitting Unavailable RAYGOZA ., DR CASTELLANO Consulting Unavailable RAYGOZA ., DR CASTELLANO Attending Unavailable HOY ., [...] DR LANE Primary Care Unavailable VARUN ., OAR Consulting Unavailable RAYGOZA ., DR CASTELLANO Consulting Unavailable RAYGOZA ., DR CASTELLANO Attending Unavailable RAYGOZA ., DR CASTELLANO Admitting Unavailable HOY ., [...] Unavailable NEVILLE ., DR TOLBERT Consulting Unavailable RAYGOZA ., DR CASTELLANO Consulting Unavailable RAYGOZA ., DR CASTELLANO Attending Unavailable HOY ., DR LANE Primary Care Unavailable RAYGOZA ., DR CASTELLANO Admitting Unavailable ZIEBER, DR JENNIFER Turner Consulting Unavailable HOY ., DR LANE Primary Care Unavailable NEVILLE ., DR TOLBERT Admitting Unavailable NEVILLE ., DR TOLBERT Attending Unavailable VERONA, DR GLEN Alford Consulting Unavailable NEVILLE ., [...] TOLBERT Consulting Unavailable BALWINDER DUNAWAY Consulting Unavailable CASEY VARMA Consulting Unavailable RAYGOZA ., DR CASETLLANO Admitting Unavailable RAYGOZA ., DR CASTELLANO Consulting Unavailable RAYGOZA ., DR CASTELLANO Attending Unavailable HOY ., DR LANE Primary Care Unavailable CASEY HARTMAN Consulting Unavailable KORTNEY ACOSTA Consulting Unavailable HOY ., DR LANE Primary Care Unavailable HOY ., DR LANE Consulting Unavailable HOY ., DR LANE Attending Unavailable HOY ., DR LANE Admmanpreet Unavailable RAYGOZA ., DR CASTELLANO Consulting Unavailable PAY ., DR XIAO Consulting Unavailable MARKER ., DR YE Consulting Unavailable KESHIA IRIZARRY Consulting Unavailable GM HERNANDEZ Consulting Unavailable NEVILLE ., DR TOLBERT Admitting Unavailable HOY ., DR LANE Primary Care Unavailable NEVILLE ., DR TOLBERT Attending Unavailable NEVILLE ., DR TOLBERT Consulting Unavailable Nona RAYGOZA R Attending Unavailable RAYGOZANona R Attending Unavailable RAYGOZA, Nona R Attending Unavailable RAYGOZA, Nona R Attending Unavailable TAMIKO VAN Attending Unavailable MD Domingo Snyder Primary Care Provider [phone] MD Arnulfo Aviles Admit Provider MD Arnulfo Aviles Attending Provider [phone] Domingo Snyder MD Primary Care Provider [phone] Domingo Snyder MD Attending Provider ADONIS GUERRA Referring Unavailable DOMINGO SNYDER Primary Care Unavailable Domingo Snyder MD Primary Care Provider [phone] Domingo Snyder MD Primary Care Provider [phone] Domingo Snyder MD Attending Provider Javi Tanner PA-C Attending Provider Javi Tanner Admitting Unavailable Javi Tanner Attending Unavailable Domingo Snyder Primary Care Unavailable Domingo Snyder Attending Unavailable Domingo Snyder Admitting Unavailable Hoy, Domingo M Primary Care Unavailable Traci, Arnulfo Admitting Unavailab le Arnulfo Aviles Attending Unavailab le Domingo Snyder Primary Care Unavailable Traci, Arnulfo Admitting Unavailab le Arnulfo Aviles Attending Unavailab le DOMINGO SNYDER M Primary Care Unavailable JAVI TANNER Referring Unavailable SURENDRA SALINAS Consulting Unavailable MASESTRELLA Kearns, MOHYASSINED Admitting Unavailable NATHEN ALLISON Attending Unavailable DOMINGO SNYDER M Primary Care Unavailable ADONIS GUERRA Unavailable ADONIS GUERRA Referring Unavailable DOMINGO SNYDER Primary Care Unavailable DOMINGO SNYDER Primary Care Unavailable HAYLEY LITTLE Referring Unavailable EDWINA ESPINO Consulting Unavailable MASESTRELLA I, MOHAMMAD Admitting Unavailable NATHEN ALLISON Attending Unavailable DOMINGO SNYDER Primary Care Unavailable Adonis Guerra Admitting Unavailable Adonis Guerra Attending Unavailable DOMINGO SNYDER Primary Care Unavailable Medications Current Medications Medication Drug Class(es) Dates Sig (Normalized) Sig (Original) benztropine mesylate 1 mg oral tablet (4 sources) Anticholinergic, Antihistamine Start: 12-24-2022 benztropine 1 mg Tab Refills(s) 0 Start Date: 12/24/22 Status: Ordered Start: 08-13-2022 End: 08-16-2022 take 1 tablet by mouth twice daily as needed Benztropine 1 mg tablet Discontinued 1 MG PO Twice daily as needed for eps August 13, 2022 12:00am August 16, 2022 11:38am busPIRone hydrochloride 7.5 mg oral tablet (4 sources) Start: 12-24-2022 busPIRone 7.5 mg oral tablet Refills(s) 0 Start Date: 12/24/22 Status: Ordered Start: 08-13-2022 End: 08-16-2022 take 3 tablets by mouth twice daily Buspirone 10 mg tablet Discontinued 30 MG PO Twice daily August 13, 2022 12:00am August 16, 2022 11:38am Start: 08-13-2022 End: 08-16-2022 take 30 mg by mouth twice daily Buspirone Discontinued 30 MG PO Twice daily August 13, 2022 12:00am August 16, 2022 11:38am cefTRIAXone (ROCEPHIN) 1,000 mg in sterile water 10 mL IV syringe (2 sources) Start: 01-26-2025 take 100 mg intravenously every twenty-four hours 1,000 mg, IntraVENous, EVERY 24 HOURS, First dose on Julia 01/26/25 at 2045, Administer as slow IV Push over 5 mins Reconstitute 1 g vials with 9.6 mL of designated diluent to produce a 100 mg/mL solution. Start: 01-22-2025 End: 02-01-2025 citalopram 10 mg oral tablet (4 sources) Serotonin Reuptake Inhibitor Start: 12-24-2022 citalopram 10 mg Tab Refills(s) 0 Start Date: 12/24/22 Status: Ordered Start: 08-13-2022 End: 08-16-2022 take 1 tablet by mouth twice daily Citalopram 20 mg tablet Discontinued 20 MG PO Twice daily August 13, 2022 12:00am August 16, 2022 11:38am 1 ml HYDROmorphone hydrochloride 1 mg/ml cartridge (1 source) Opioid Agonist Start: 01-26-2025 take 0.5 mg by mouth every three hours as needed 0.5 mg, IntraVENous, EVERY 3 HOURS PRN, Starting on Julia 01/26/25 at 1736, Until Discontinued, Pain Severe (7-10), If oral and IV narcotics ordered, use oral first and only use IV if oral is ineffective or cannot take oral. Do Not give oral and IV within 1 hour of each other unless specifically ordered. hydrOXYzine pamoate 50 mg oral capsule (4 sources) Antihistamine Start: 12-24-2022 hydrOXYzine pa moate 50 mg Cap Refills(s) 0 Start Date: 12/24/22 Status: Ordered Start: 08-13-2022 End: 08-16-2022 take 1 capsule by mouth three times daily as needed for anxiety Hydroxyzine Pamoate 50 mg capsule Discontinued 50 MG PO Three times daily as needed for Anxiety August 13, 2022 12:00am August 16, 2022 11:38am ibuprofen 600 mg oral tablet (2 sources) Nonsteroidal Anti-inflammatory Drug Start: 01-29-2025 End: 02-05-2025 take 1 tablet by mouth three times daily as needed for pain ibuprofen (ADVIL;MOTRIN) 600 MG tablet Take 1 tablet by mouth 3 times daily as needed for Pain 21 tablet 01/29/2025 02/05/2025 Active Start: 01-22-2025 End: 01-21-2025 take 1 dose by mouth once 600 mg, Oral, ONCE, 1 dose, On 01/22/25 at 0015 1 ml ketorolac tromethamine 30 mg/ml cartridge (1 source) Nonsteroidal Anti-inflammatory Drug, Cyclooxygenase Inhibitor Start: 01-26-2025 End: 01-31-2025 30 mg, IntraVENous, EVERY 6 HOURS PRN, Starting on Julia 01/26/25 at 2128, Until Thu01/31/25 at 2126, Pain Moderate (4-6), allowed for higher pain score per patient request, Pain Severe (7-10), Do not administer for more than 5 days. 50 ml magnesium sulfate 40 mg/ml injection (1 source) Start: 01-21-2025 morphine (PF) injection 2 mg (1 source) Start: 01-21-2025 morphine (PF) injection 2 mg [place] (No Known Home Meds) (3 sources) Start: 04-08-2024 [place] (No Kn own Home Meds) Active April 07, 2024 11:00pm Start: 04-08-2024 [place] (No Kn own Home Meds) Active April 08, 2024 12:00am OLANZapine 15 mg oral tablet (4 sources) Atypical Antipsychotic Start: 12-24-2022 olanzap ine 15 mg oral tablet Refills(s) 0 Start Date: 12/24/22 Status: Ordered Start: 08-13-2022 End: 08-16-2022 take 1 tablet by mouth at bedtime Olanzapine 15 mg tablet Discontinued 15 MG PO Bedtime August 13, 2022 12:00am August 16, 2022 11:38am olanzapine 15 MG / samidorph an 10 MG Oral Tablet [Lybalvi] (2 sources) Start: 03-20-2023 Lybalvi 15 mg- 10 mg oral tablet Refill(s) 0 Start Date: 03/20/23 Status: Ordered ondansetron (ZOFRAN-ODT) disintegrating tablet 4 mg (2 sources) Start: 01-26-2025 ondansetron (Z OFRAN-ODT) disintegrating tablet 4 mg Start: 01-21-2025 ondansetron (Z OFRAN-ODT) disintegrating tablet 4 mg oxyCODONE hydrochloride 5 mg oral tablet (4 sources) Opioid Agonist Start: 01-22-2025 End: 02-03-2025 take 1 tablet by mouth every six hours as needed for pain oxyCODONE (ROXICODONE) 5 MG immediate release tablet Indications: Acute postoperative pain Take 1 tablet by mouth every 6 hours as needed for Pain for up to 5 days. Intended supply: 5 days. Take lowest dose possible to manage pain Max Daily Amount: 20 mg 8 tablet 01/29/2025 02/03/2025 Active Start: 01-21-2025 oxyCODONE (ILDA ICODONE) immediate release tablet 2.5 mg polyethylene glycol 3350 170 00 mg powder for oral solution (2 sources) Osmotic Laxative Start: 01-26-2025 Start: 01-21-2025 Potassium Chloride (1 source) Start: 01-21-2025 potassium chlo ride (KLOR-CON M) extended release tablet 40 mEq QUEtiapine 100 mg oral tablet (4 sources) Atypical Antipsychotic Start: 12-24-2022 quetiap ine 100 mg Tab Refills(s) 0 Start Date: 12/24/22 Status: Ordered Start: 08-13-2022 End: 08-16-2022 Quetiapine 100 mg tablet Discontinued 150 MG PO Bedtime August 13, 2022 12:00am August 16, 2022 11:38am Start: 08-13-2022 End: 08-16-2022 take 150 mg by mouth at bedtime Quetiapine Discontinue d 150 MG PO Bedtime August 13, 2022 12:00am August 16, 2022 11:38am sulfamethoxazole 800 mg / trimethoprim 160 mg oral tablet (2 sources) Dihydrofolate Reductase Inhibitor Antibacterial, Sulfonamide Antimicrobial Start: 01-22-2025 End: 02-01-2025 take 1 tablet by mouth twice daily sulfamethoxazole-trimethoprim (BACTRIM DS;SEPTRA DS) 800-160 MG per tablet Take 1 tablet by mouth 2 times daily for 10 days 20 tablet 01/22/2025 02/01/2025 Active Completed/Discontinued Medications Medication Drug Class(es) Dates Sig (Normalized) Sig (Original) acetaminophen 325 mg oral tablet (2 sources) Start: 01-26-2025 650 mg, Oral, EVERY 6 HOURS PRN, Starting on Thu01/26/25 at 2128, Until Discontinued, Pain Mild (1-3), allowed for higher pain score per patient request, Maximum dose of acetaminophen is 4000 mg from all sources in 24 hours. Start: 01-21-2025 acetaminophen (TYLENOL) tablet 650 mg acetaminophen 325 mg / oxyCODONE hydrochloride 5 mg oral tablet (1 source) Opioid Agonist Start: 01-26-2025 2 tablet, Oral, EVERY 4 HOURS PRN, Starting on Thu01/26/25 at 1736, Until Discontinued, Pain Mild (1-3), allowed for higher pain score per patient request, Pain Moderate (4-6), allowed for higher pain score per patient request, Maximum dose of acetaminophen is 4000 mg from all sources in 24 hours. Diatrizoate (1 source) Start: 01-17-2025 End: 01-17-2025 600 mL, Urethral, IMG ONCE PRN, 1 dose, Starting on Thu01/17/25 at 0900, Until Thu01/17/25 at 0900, Other 0.4 ml enoxaparin sodium 100 mg/ml prefilled syringe (2 sources) Low Molecular Weight Heparin Start: 01-27-2025 inject 40 mg by subcutaneous injection once daily 40 mg, SubCUTAneous, DAILY, First dose (after last modification) on Thu01/27/25 at 0900, Until Discontinued, Indication of Use: Prophylaxis-DVT/PE Start: 01-22-2025 2 ml fentaNYL 0.05 mg/ml injection (1 source) Opioid Agonist Start: 01-27-2025 End: 01-27-2025 50 mcg, IntraVENous, EVERY 5 MIN PRN, 2 doses, Starting on Thu01/27/25 at 1658, Until Thu01/27/25 at 1707, Pain Severe (7-10), For Phase I. If Phase II oral narcotics have been administered in the last 60 minutes, do not administer IV narcotics unless specifically approved by provider., PACU only hyoscyamine sulfate 0.125 mg sublingual tablet (3 sources) Start: 01-26-2025 take 0.125 mg by mouth every six hours as needed 0.125 mg, Oral, EVERY 6 HOURS PRN, Starting on Julia 01/26/25 at 1726, Until Discontinued, Cramping, bladder spasms, stent pain Start: 01-22-2025 take 1 tablet by clem th every six hours as needed for pain hyoscyamine (LEVSIN) 0.125 MG tablet Take 1 tablet by mouth every 6 hours as needed for Cramping (bladder spasms, stent pain) 20 tablet 1 01/22/2025 Active K-vescent 25 mEq oral tablet, effervescent (1 source) Start: 06-23-2023 take 1 tablet by mouth twice daily K-vescent 25 mEq oral tablet, effervescent 25 mEq = 1 tab(s), Oral, BID, # 30 tab(s), Refills(s) 3, Pharmacy: [facility]/pharmacy #[id number], 168, cm, 03/20/23 10:32:00 EDT, Height/Length Dosing, 95, kg, 03/20/23 10:32:00 EDT, Weight Dosing Start Date: 06/23/23 Status: Ordered prochlorperazine 5 mg/ml injectable solution (2 sources) Phenothiazine Start: 01-27-2025 10 mg, IntraVENous, EVERY 6 HOURS PRN, Starting on Thu01/27/25 at 1317, Until Discontinued, Nausea, second line after Zofran, If administering IV push, administer at a maximum rate of 5 mg/minute. Patients should remain lying down following administration and be reassessed for relief of nausea and presence of hypotension. Patients should be assisted the first time they get up after administration. Start: 01-22-2025 10 mg, IntraVE Nous, EVERY 6 HOURS PRN, Starting on 01/22/25 at 0756, Until Discontinued, Nausea, If administering IV push, administer at a maximum rate of 5 mg/minute. Patients should remain lying down following administration and be reassessed for relief of nausea and presence of hypotension. Patients should be assisted the first time they get up after administration. 5 ml sodium chloride 9 mg/ml injection (5 sources) Start: 01-26-2025 5-40 mL, Intra VENous, EVERY 12 HOURS SCHEDULED (2 times per day), First dose on Thu01/26/25 at 2100, Until Discontinued, For Line Patency: Peripheral IV = 5 mL; Midline or Central Line = 10 mL/lumen. If following IV push medication, administer flush at same rate as the IV push. Flush volume is determined by type of infusion therapy being given. For non-viscous solutions use: Peripheral IV = 5 mL Midline or Central Line = 10 mL/lumen For viscous solutions (i.e. blood components, parenteral nutrition, contrast media, or after obtaining blood sample) use: Peripheral IV = 10 mL Midline or Central Line = 20 mL/lumen Start: 01-26-2025 Start: 01-26-2025 End: 01-27-2025 IntraVENous, at 75 mL/hr, CO NTINUOUS, Starting on Julia 01/26/25 at 1745, For 12 hours Start: 01-22-2025 End: 01-22-2025 IntraVENous, at 150 mL/hr, C ONTINUOUS, Starting on Thu01/22/25 at 0015 tamsulosin hydrochloride 0.4 mg oral capsule (4 sources) alpha-Adrenergic Yuridia Start: 01-22-2025 take 0.4 mg by mouth once daily at mealtime 0.4 mg, Oral, DAILY, First dose on Thu01/27/25 at 0900, Until Discontinued, Do not crush or break. Give 30 minutes after a full meal to limit risk of orthostatic hypotension/falls. Problems Active Problems Problem Classification Problem Date Documented Date Episodic/Chronic Abdominal hernia (1 source) Umbilical hernia [...] Onset: 06-16-2024 Chronic Calculus of urinary tract (20 sources) Kidney stone; Translations: [Personal history of urinary calculi] Onset: 09-01-2022 12-19-2019 Episodic Genitourinary symptoms and ill-defined conditions (6 sources) Urge incontinence of urine; Translations: [Presence of urogenital implants] Onset: 09-09-2022 12-19-2019 Chronic Genitourinary symptoms and ill-defined conditions (20 sources) Dysuria; Translations: [Increased frequency of urination] Onset: 02-18-2023 02-28-2020 Episodic Menstrual disorders (5 sources) Excessive and frequent menstruation with regular cycle; Translations: [EXCESS FREQ MENSTRUATION W/REG CYCL] Onset: 11-04-2022 Chronic Mood disorders (11 sources) Major depressive disorder, single episode, unspecified; Translations: [Major depressive disorder, recurrent, unspecified] Onset: 08-14-2022 03-20-2023 Chronic Nausea and vomiting (4 sources) Nausea with vomiting, unspecified; Translations: [NAUSEA WITH VOMITING UNSPECIFIED] Onset: 02-16-2023 Episodic Other aftercare (1 source) Other extermination inspector (current) drug therapy; Translations: [OTH LONG-TERM CURRENT DRUG THERAPY] Onset: 02-18-2023 Episodic Other aftercare (1 source) [facility] (current) use of oral hypoglycemic drugs; Translations: [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 ORAL HYPOGLYCEMIC DX] Onset: 02-18-2023 Episodic Other diseases of bladder and urethra (3 sources) Urethral stricture 12-19-2019 Episodic Other diseases of kidney and ureters (3 sources) Cyst of kidney 12-19-2019 Episodic Other diseases of kidney and ureters (2 sources) Vesicoureteral-reflux , unspecified; Translations: [Vesicoureteral-reflu x, unspecified] Onset: 01-05-2025 Episodic Other diseases of kidney and ureters (2 sources) Vesicoureteric reflux; Translations: [Vesicoureteral-reflu x, unspecified] 01-17-2025 Episodic Other diseases of kidney and ureters (2 sources) Hydronephrosis with renal and ureteral calculous obstruction; Translations: [Hydronephrosis] Onset: 01-26-2025 01-27-2025 Episodic Other diseases of kidney and ureters (1 source) Hydronephrosis; Translations: [Unspecified hydronephrosis] Onset: 01-26-2025 01-27-2025 Episodic Other nervous system disorders (5 sources) Acute postoperative pain; Translations: [Other acute postprocedural pain] Onset: 01-22-2025 01-22-2025 Episodic Other nervous system disorders (1 source) Other acute postprocedural pain; Translations: [Other acute postprocedural pain] Onset: 01-22-2025 Episodic Other nutritional; endocrine; and metabolic disorders [...] 02-18-2023 Episodic Suicide and intentional self-inflicted injury (7 sources) Suicidal ideations; Translations: [Suicidal thoughts] Onset: 08-13-2022 Episodic Unclassified (1 source) NO SHOW Unclassified (3 sources) Finding of sensation of bladder 08-20-2021 Unclassified (1 source) CONTACT W/AND (SUSP) EXPOS COVID-19; Translations: [CONTACT W/AND (SUSP) EXPOS COVID-19] Onset: 11-04-2022 Urinary tract infections (15 sources) Pyelonephritis; Translations: [Urinary tract infectious disease] [...] Test Name Value Interpretation Reference Range Facility Coding Summaryon 03-23-2025 Coding Summary HTMLBase 64 JjbdriupLZp1jQs+PGhlY WQ+EK7USLIzP57ggNEtuC 6pW3OQWEzWFnqfNBIVFDc MDpJwlhPmDO0siBRxMQTi IC8+UJ1rWTDiTwisxARzi 4A3kTA3D02yeo8bRPakyC D4WULsBuJkpegxs1kuwFk 6IDcuNmluOyBt QLCxrE43JSF3pT17Tu33s HJooEGzk5vdgXf6JyEsPN IxKQE1cHdiSUmkc9JmENH tF55xsGVre2W3 VJAczGhrkFYbZlHjxBM1p S2mQWkdxfrvj9abopuoAn f5to34hNLjc7T9rMI0E7J kgcG3LSEmaUBc FpoidDDLyO0jbkolf8ftn kjbWhArLEUpMHr8LAi0IC YicWgmHqFpJL99NLV7DWV vvcVqY7LkKTKu bQcgQiH5i9I7Xc5IG5WJD ssmZ8CYLJNLHUrzrZG+PC 37tj13G4CnOxctDzb8ZTX yHKL8xOC9sM4v IJIwWQrna7U2bAI7Z1Lgu oNwmb8vl9ttGSBqGNacI1 1jqKQav5Q7GEMwsIZ9SVQ fpLlcWjJauM43 Oyc+TKAnyQqut7JxXkjau 3mlq2iylBg7FhheABNfut PqiGbrQIC8q6JlQx9vHUT yvXM1sYQ4wF0r MyTpWtJ0WFlwY981PkTip GWwWgmiE86yM8AolEE+PH KrPry2LZCsbBtyVQ2tW1W hZGRpbmctbGVm iRghKB7aQANztqzkDZQok C0aWKGbU5r4VeVkPsL3KO miI4PuUHHuxkmtYa47oD4 uNsJiNvW0MQac L8MchgL6PIApmKIrEDnpR ZF2H35lx3X9FPEyMJWcIC O5mGA0uH1eoKctxjobfMU mdDsgdmVydGlj THytCOykI364DOBkqAidH kNvZGluZyBEYXRlOiAgMD YvMDUvMjAyNTwvdGQ+PHR fHFZ5aYkpCWJk jGToTMsgWl7jpYzmaDglN H9eRVVdxqouTXBncD7dSP QwsAUfaHadSU0vLKCidaz lu713AfMoNOI5 OBGqrAGlE5BhgS8xLnQnX IJmFZFmE1GhuEQrAEpuK9 00BDwrWgN5RXQsafXiZ2H sLWFsaWduOiB0 q1Z8Qd2Cb5IznijdW0Uuw YWyLpNfVxviNFl4W3QlEk wvdHI+AQ17WVZpHJ79MVd 9AMP4pFtvCByz QYWjT4ZafF9zNsMzEILcQ GRkOyc+PHRhYmxlIHdpZH RoPScxMDAlJyBzdHlsZT0 nRy6vQRRbTMCt lDckqXJvDlLub3stZAUrQ MtiLR7vwVirS0FnbPC9ZA Rsu8h5Ic16C12uQ5SlyQN +WYUzmZD1fZG3 eX1zWrXgVsS4TBvpR502Y iKmiIXtQlotj3tfe5ncnF n3EjA7MRGytyUhxCleBVH 0x8SvYb41I44u IHdpZHRoPSIxNSUiIHZhb Xgqzc6krF2jCs0+PGNvbC W0hQP6cS3jWuDpXgJ9KSr rU839TtQhiJEl Ciqhx1bkl3esoLs8FrZjG SAmbgWumNzjFAD9o3IiMj 60O1IakPoxt2WeXyi0fk3 7bVVia9K6sNJ9 P1AoNAXtnlqpmCUoxVvgB P0bRBMhkqjeKAVrkY5xYA XgA0q7HmIhZtF0AWjxW5F krrG2REJzeYXb DEPucEUPjN0eyzaro4upn tweCeJdDKZlDDb8CRc7UM EepUihXkXsSWJ4JzK4GIY 0cESajV0jwDvj otmblC6uYnr+GBY5aRRcz QDQQF4dOnyhbOH+PHRkIH J3zJxcBIgeUOAikU4tVOI wU1c5KdNdEhD5 BSxqK6ZvzfW5NUPurINkO DWjgKBUvE7mnszzg1hqji jvFjUjMCObWBi5DGu5JNI saWduOiBsZWZ0 CoV4EDM4tBVydH5jdSpsd ryriT9mKpk+QmlydGggRG Y6RMm1V9TcZsm3YEAblOs dPU6abXLfUEin Pt1spNooqOijBL1jDHPnu nebe765ZoHlw0esJNRxzS BkJBerAOX0S66ur4H8WLG lQCUiCQZ6rPO0 jH7caLidnymjtPUrsNtyl yUnaXjtQVdkSVcxB528GC PloUnjYcYbDMb7D7WaDkv 6XKXstJepTJ7c tPGbPYrxDy9onDezpMcoZ T6aGIWutdxqy201VlWcu1 byBSRmzZRiPPkjRNE2N78 wr9S8VJEjDHTh AHV4mMY1lL0ouPadmtzvl GVmdDsgdmVydGljYWwtYW bcK649IXXycMoeFyYkgTt 7M8AmEgq4YZBv kLwgXM5jsVQfNHivVb2dj NhpmMtuDH0pLBVxpopvz2 82AjCxw1ppBCMxhEAwYMd kQIZ2R01fu3U3 DWAvZJNfQAZ9yLJ2lQ3mb GlnbjogbGVmdDsgdmVydG mbBDeiQDlxJ617XYRvcPb nPlBhdGllbnQg CBikRQx6N1LsGnhwvSP+P O65RJOzKP53eDNhuUAcy9 lfwHu4DtIcCNAgLPP3tNs hETyzn3OtTLBu U40vcSFpw1N8WOCpfQhrz QUyYmGjxEK0bV1nLBhlty obl0izqgquTnwka4ekvv5 0rK75E45uIMwr ZHRoPSIzMCUiIHZhbGlnb n8hqD4uBj9+PMQqnHZ7nS O1eF8hODUcRoN3KJxoE02 9InRvcCIvPjxj u0oqv0hbxCl7OyN5PWGdl oJkrIsrRBV7l1RxSf39G1 9sIHdpZHRoPSIyMCUiIHZ dnLgomb3fjA0n Ii8+JJXitBE8eDE7mN9kZ jXsCkV7GVhiF701OvXnbF GgHfujC80jK0DlpHK+PHR mXno6STOjeEjy DA6dqLNoKElkWa0aCCW2K zQlNaExBWcgM0PjVSUboj ahedwelXL4MJKaBBGlxA6 7Pf0vpLnoYLMa fJZVmC0zasqqk6ybjkhcX pOfGUUwNYh8NMu0MCPwmG alBpRhMVL8TzY9CQV6qRM xuN2axWkgzjmh lR9hQ9YxELHkonysQd80n R7aLcFyFkV8QMmrGyg+TU 5MMTtrB6WJHIHPSQYWK1J JPT96T3NyXwr4 VCVmyFywJO9otMWfYYivH z6kfGcbhJpiQS8aVEMwoc rzHCYgsP1jCCLgoBWpaYm aSZ2iQLTcrmww u090JyJiULJ1QLVrzIMeJ 9RdjD3uFsUiYRXoDQPoX3 NrgXLbYYitH009UTvoEdO 1CYHbbuFcV0Mr JYZuqFwyTeZ9l0K9Bh9yB U1tSw9hEHbtOP17JJ43pI Eic4S7aGT8P0SqUDZmaxi vvbxjtHI7YQLk CWAtrF12hFQsBCovWw6uc 5P1k304SFAyRQSrjJ42Oa 6twPriPIVbuOAWpO6vbmy nj4kmyfwyUkHh CXCtZZd6GYn7NTHisUoiW lHrUCE2CjP2LQT9iUIymC 9fgPhzxqhiaQ4qMyh+MzM zPRGpkuU8V0Ie Yih5NWOyaRdyER4uwYQqX OdhSh1kxCnmhTbrKL0mBN FvjjrgFOJbsH3vPHTvqAG ukQkmVG0dZYPv zsjjq910CfJeXAU5XTBuy XIjX8FgtF4lZeIhUVTfWT DiI3ZemIQxOOoqU836WKa gNnV3XTEfgkAd R7VlKHBrlQftOxT5s6G1H o8WVI6CFBL8T9VzSgv0AI RpdDbjEQ4mlFHtWOxdYm5 ckHvcoKbqPO2n VIOiqdsqTQLbyC6qRMUfu GSvxJeaSU1lVYTciatsj9 31GpEeRUR6ZDAuwUIsQ5I hbR4rKdEsELFw XKJxX3OjuDWxNTjwI272P KywMcO7HWUjkyTqY1JbLR FpnUvpUoX0d1J0Gn5JUMb vdGQ+YI07eu21 I5WrSbpkUlf1VNIvMYE6i OF0rA1hXKMkXFmgf4J4wH E0H0QsxeExkc3ta3huWCK dBMmrU67bhEPp o4G9VETrsUH0HAUjdQvtF iFisE92Eir+PGNvbGdyb3 WxZmzyz1fdb6tywTb1DlR wJSIgdmFsaWdu SSC8k3WfCg52W55gMObfS HRoPSIzMCUiIHZhbGlnbj 0gtC2xRy3+UADzsHB2yTJ 5rW2vYoDmOmS2 SKwaL241IlGzyKMdQwsgu 4gmp8gtnTv8EdNpQNYyoq FcgRgeXOQ5r5QrKv92X1K ynFocf5UfJnn0 yr86mXFih4X9mKQ5T6ArP HGlhesjqWQemQvzFM1aXC EnizskWQDnxV9pQUXgW7j 3XmGrYqD3BAjd S0UeroL9NUQncQRfHJLni AFMkF5nymhug4nyjlpuHv YqAUNdTAb4UUt1PVFgwJa rPnFcSPK3LdK5 CHD1pJBlpL6xhSlriwpmx G9wOyc+LTp8j8xtiPVoGD 4wvAB4II14WQ56uELcy9Z 0gAQ0K8NwXMBn omthzbfyjDO0OQRxNLHkf U36Aj0ukIuaXr8aXDXmTA B5DWOyiSWuJ6AkbN3yHdF vJKAvHGAiO2Lk dIHwQDihF208DIrcFhY1Z YXdvvVmS7PtZIKlmHsgJz H0v9K5Nz9YXZ09AR44UB6 3dQGth2W4pLZ1 J5QiDYFltuxebylekUU3T XBbRVKllI18Br7suWsoFo 2pBAFrWRE6SFTxjTAoA7F xgW2wFpXgCWYc NIZwG0IvhYOsAUwrM274B AeoMqL4RKHjptPzN4AdXB ManAekTnV6p8U2Pi8LNf7 7WN82BO40lCIg y7Q6jEW3A8KbSRXhpgjgp gvebMA2AHXfDGQodC99Bo 7ewMmyTz4gDJMvAWI7BEP nrSScS2MtqL6t CbRcEBOwYEPwS2XaqRIiQ BloR291WWvdFeC4MEWhfd SuT0NsHDWlfWqdWwB6z0X 3Xq1TXWdeqld9 H4RrFxroqUU+DI87QHNpV M37cLAnwVGhb0jngIf7Bg RvOVUvDAG1wGjiAUqpd5P hNWNiO88dgNFd c2U (more content not included)... [facility] Provider [place] 03-20-2025 Provider Orders [id number]. [id number] [facility] C Urineon 03-18-2025 C Urine >100,000 cfu/ml Escherichia coli ORGANISM EC ---- SUSCEPTIBILITY --- ORGANISM ID: 1 ANTIBIOTIC INTERPRETATION ANASTASIA STATUS ORGANISM ECEC Amp S <=8 Verified Amp/Sul S <=8/4 Verified Azt S <=4 Verified Cefaz S <=2 Verified Cefep S <=2 Verified Cefo <=2 Verified Ceftaz S <=1 Verified Ceftri S <=1 Verified Cefur S <=4 Verified Cipro S <=0.25 Verified Ertap S <=0.5 Verified Gent S <=2 Verified Levo S <=0.5 Verified Nitro S <=32 Verified Pip/Myles S <=8 Verified Tetra S <=4 Verified Tobra S <=2 Verified Tri/Sulf S <=2/38 Verified [facility] Comment on above: Performed By: #### [id number] #### [facility] (DEFAULT) [address] [place] [address] Provider [place] 03-16-2025 Provider Orders [id number]. [facility]25 Cult,Blood Specimen Description .BLOOD Special Requests Culture NO GROWTH 5 DAYS Report Status FINAL 02/01/2025 [facility] Comment on above: Performed By: #### B C #### [facility] [address] [place] [address] Beater Operator: Alejandro Salazar MD Cult,Blood Specimen Description .BLOOD Special Requests RIGHT HAND 1ML Culture NO GROWTH 5 DAYS Report Status FINAL 02/01/2025 [facility] Comment on above: Performed By: #### B C #### [facility] [address] [place], [place] [address] Beater Operator: Alejandro Salazar MD Coding Summaryon 01-30-2025 Coding Summary HTMLBase 64 MipcwkfpVSi9tXx+PGhlY WQ+SR0OQNPiS57xaYGvcP 2wY4QAFDvGIegdUAXVRMv BDuSzgjMvHR5sfJTgLPAy IC8+SF6qHYPeImovaLFln 7W7oYL4B44koc2rJXpdcG Z3SITkSiUsclsjh5qxpRk 6IDcuNmluOyBt ZRKsfL92AXG8yL00Zx23t PPgvOXoa5khoBz5IpQcRM KzYFG5qVnbCHpfl3DpTYF kE01ywGYus4T2 MGKjlDspwUHhKxYvgGA8n X4eJLqckoodg3dwjotbCd q6ja59pZSkp4R3pUW9Y3I vogG6WIBkkLHp PmhthICMhS0jdjxqs1jgb lsuRdWmVRHvVKn6QVq9DG OmuBgiCdRoLN63ENG1IVT qocMcO8JeGJGd fMluWbQ4w9N8Fh4HX9YWY xqtG7NOSPZWWLfupRL+PC 81ot16U3MsLepcCaz5KYB zFRU8lLV5qO1f EAEeMTloo0Q0bPK2X8Fsx iObhq8nh4juNBAyUVfvB4 7gyYQdu7L2NAQxpQS0NOG lbGnoBiRrbP41 Oyc+BAWroMyqb9EfJgaab 9pco3uepFi3FwywAJLsbl FctDeyGRW6b0ZvHe1xPBL ozWH6aWT0yG4n UdGnVpZ2IJicD396BlRam IJvRharX47tU2IlfQZ+PH HqZuj6GYCbgIujBW9cK4X hZGRpbmctbGVm fLlmNY2vARKynskfVZTqz A3mVPIyS6a1ZnLeHqS4KH frD9ObWYZeadzwFi28rT5 aWcXdKmY1QKnu C2VxgqI6VVNujPNnDJegS KU4I37kf8T2GFDrTUPcKS B2dHG8tZ9tlJixxlvnfWU mdDsgdmVydGlj FNffDFhxK828UKDgkBndV kNvZGluZyBEYXRlOiAgMD QvMTQvMjAyNTwvdGQ+PHR hWAH4gHxiNKIp pSOlBMtlIx6kbCehxGmdF V6uGEKojjbjJSFthJ3fNG BwjYDudHxaQE8aQNXhydu pt252TgXtKUP1 QSUikHHrZ9DwwJ7vUvWgU QUsHQRpI9NeeKUwMRkoU6 88ICloCcC8DWWsklEdT6U sLWFsaWduOiB0 h0Z9Jb1Uc2KcceaoO8Yqe DNgJiRyAzocADi2X5BiRs wvdHI+XI75AUAkTG33ANo 2NIG5dWmnMUgx BMOsN5NueJ9fIsNjONXbM GRkOyc+PHRhYmxlIHdpZH RoPScxMDAlJyBzdHlsZT0 qIh4sPQOuBTBg cGmlgMWzJtJkv0hrPVAuQ RwtEJ2bbPecE8IcbKD0PK Gtg5k1Kt66U30kQ0ChkUB +AWGdhXJ6eCH6 bV8aPqQtLsJ5QSoaH006F wFdjEOeJxgvn4fyq3ktrG e0XvI2TEMqgdQkiIliJDW 9c1YaVr83I50n IHdpZHRoPSIxNSUiIHZhb Ljjpd0clH5cLb5+PGNvbC R5eMM3wK9vLcCvXvE0WHo bT327YmUskDKv Bekpg9uvi4psiEu0AeTlS TTufyGdxUryWPY0y7LaYb 51Y4UmgCmmx9AoAmm2gd3 0yAJlz7V4hTT7 C9DzMFRpqdjxxCFmfHjaP W6lAVPswnoiGTNvhK9qZC LyZ3f8KtNtHcT5LXpzT7X oizI6PHGirAKl CIZjzRMAmW2rcxdsx2tjb vojYxPjJOBtQZy5CHw7JM JjmCisDfZaYJE3GuX3HZI 3vQEqoK4grPmp gbkfeI1kLvu+DJR5qCMzt WYBJI5wGxddoJS+PHRkIH G7fMxsNShrFDKnaP6mFBB qO3m1HzDsEdI8 YStpJ2KuheQ9IWZgvSLhD BFigGQHpF9gqbhqs5nxjo vmCyBsRGWnUXc9OTl6AQU saWduOiBsZWZ0 YiF9XZH5jGWsgV0ktRnle phjnR4uNcn+QmlydGggRG F8PSp7B7RoZyn8QLNvrLs uOC1ogUMlFOio Sn7teOteiFiiIY6rATWlj lcsx733VuOqo8yaDODmrL HpAYuhCLZ8U43rw0A0AYJ eTLDmATK1vSK5 dQ4hxYvmphiljXSslFczw vMbmIfmQZqiRDdaO532ZC ZtnMqnZvZqZZk7V0IyQtf 0AIJfvMssTR7r zGDvHAoeFz4gfJygjVtqO W4zOTOcavuep687EhUip7 znAAUleHDwNTbwEDG1L42 gp6Q2OIYzBYXt WVF5dSH7iS2ybDhunpfmt GVmdDsgdmVydGljYWwtYW ygP688YCWgkQxrLrKnfUv 5H6RkPxy6WNYg pQffDB9tmHLqIUkcIl3to SlqbTxkTC8kUTMqgkqyy6 73QaJna4prRCTuwZUyVHd dMMI8X29hh8Y3 HMKtDKEaNPO4jDV3yA2te GlnbjogbGVmdDsgdmVydG zfCOwlTSfqW898JQSpuDa nPlBhdGllbnQg EInrGGl8R5PnVzsyxKI+P O22EAYkLI12lKBjpUCjx2 nyqGu0GzLeTQErHEK9tQo xNAdrd3PvMNLn I39xyPEpb5K6QXEogGopm XYiLnUfeEZ2tY3zEXsfce lfh4cmxpzbCwzxw5zbuc3 5fR20G12lJIux ZHRoPSIzMCUiIHZhbGlnb r1zqS8dKh0+DREurXF5yZ G7aG8kQRLwTaR8VYudU53 9InRvcCIvPjxj x2wyd2ncsQf5CkY8XJNza nJpnFvjIQC3o1MmRa97S5 9sIHdpZHRoPSIyMCUiIHZ skCtvzo4bvG3u Ii8+OLHgvBP7oUT4jT8lR lSpDqK1QSgjF428SgTsbJ MpZamoM90uA0QieWU+PHR oIjq2HRXszNzk ZY6qkQVxZAyzAu9qRYK8H mYvSnXtHIodD3BgNUIrqy aiovdxjLV6OSKyWFBowK7 7Oc3abCzzKHPo jJTLmX7jttidg5bgsaudH aOdUBAoBRw1RGk2QLGlqB jbJxLjVWS4XgZ9MEO5pBR ddM1mwAvajejg bZ4wT2BnEGVzskwmPb47v L8dNyPcZmB1NSzcNea+TU 8GVUlwY4ZYTXTTTXLWY4V VQC71U5DgAuc4 LQZaaXylZM3obNEqQQqdB u3fpNonlOfmCV0xQUCcmt ykNWVtvG4bINIcxUSesQu bLN9iJWAjqpzz a772CpNzGWJ3WGQfgZNqW 4XgzU7yQyDdFGVsWASrU2 CsuAAtUMwsS388SUqiYlR 9AJQxxtZsG1En OCTshXbtKmN4o0N5Hr9lF O0vRc2oTUtuRL03OZ98hX Ivz3G5gSL7O3FzOBDpctq qkshnoNF6VGId RXVnwT71gCNqCZuxCz8kt 2K2t847GTQkIAXrdP30Fd 8ixWphPJAcaZEBaJ6kptk dc3tcbchwZfZc GMUzCGd4RPv3GQGipWngI vGdFJO1RvA8TNL7dTZegS 9wpIgdywdhxO4eXfb+MzM wWIHeieL2V7Cg Fcq2VYZqcQgaHB5kvJIoS PalSv3mjQahfShoAH1nFG LpsiybJEFpiB1uYOZaxBL ycCufMI9rOTCz vyyhd194SgFvXNM5LQBxi DIqH5TwvE4eBwYdKTLpWB JaR7HwuZJhTWoqD283OJu eAjD0TZXzafYe B9NdFIEpjLikJjP7c3U0I d3QUR0VWLE1N3NgPbc7FL AhbUgwXP2xvEQbAMbiEh9 pxQjnxYhlGW3r QJVctzvnNTLlnQ3bRDNpe IExaPgiVC6zSZTtikklo0 19EnRzLZI2LCSqrAOvU6F kkF1kVvAkKKRa IIWpS0HsxGTeZLofC529C OwtUpB8JOJmizViK3UkAC HwhFktLuD9z4Y3Uz2ZpZM kC3MaG1c3N9Ki PjwvdHI+NH60ENKkGM59w VGhbXGsr7zpkHd7LiHgGX FyBED2oTivPMayk8OoMIW wY21hgEAjt9B9 BWJiwRqjyZVwDjEjmJL5z Z2yBXxksdjgk6gmsvosMh eaj8pfkl08nY29G28cMIu pZHRoPSIzMCUi YSKwrYdrxw2wyH6rPl8+P YPeiEP9vQT2fJ2jOyNoPx A4KOigO496EgDjvPKiDzg nb0lgs5tbsSp6 IdZnTBRfwnGrjJfwFYP0k 3InAc56W54jYMxpYITrIT NrLZHoFACnaPyxly1juO9 wIi8+OF7kq5ya dn98wR15iRU+RJTiCMH3d FiuGAsvBRPxsF4qJZuuVx I4VLLaLzVyaA85lLXzFZt zXc3yqIdeeCcp WH9qVRSwhwmtj018DyXhv 1aiWCQtzIKfSBceYJV4A2 4df5Z3NOEyMBVvUNP0qNI 2zU9pxTuaoxtd bGVmdDsgdmVydGljYWwtY GunC348XOJljIqxLgYhxX ZlN4ybkeADNR1fMczpzEB +UWOnBTL7dFvr KGxbWCXtiR1vGPAvY3o8F kRgHmN9YAjiH7XgxbQ7DH MpnCSaYRMxtNLCuE9rfmo wp7rvxmjmWdAn NKUtFFs9VPw0LFVsdYddU nTkGVD0IlE7ZJT8oEXriT 4qmTqhrqrtqY6qDfs+Rkl OOjwvdGQ+PHRk KWR8tTzjCDvzALUelU1sM JVeC4g1XiXiZrD0HKecF8 TrwlM0NXSxpEXlRFLqyWQ LiC7wfxtdl6ch edldIxMaXDMhRMf2FMg4B WKhsLfiLsMwBOL6JoP9ZE X5qRDgyD0stSdvbadeuZ8 wOyc+TVJOOjwv dGQ+WGVrDYG8pOthQFxdG TFliV2cIIXyC7x8RbRfSn A9BKhwM4JwxiO1PPVhqDH sWHBhoYWBmB9f rjphj5puindwJoFvMNGxO At5QPj4CKPsdQbaTxMhFT R4AnP4XEG2tWDevH6teYg zgtzqqT7gDlu+ RZX6GLJ5YF24CC60V6FfT jwvdGFibGU+PHRhYmxlIH dpZHRoPScxMDAlJyBzdHl vKZ1kBy8eMYAc LWN (more content not included)... Normal [facility] C Urineon 01-28-2025 C Urine Urine Culture ordere d as a result of parameters set on specific urine dip and urine microsopic results. Mixed skin, or urogenital daiana. Clinically insignificant Normal [facility] Comment on above: Performed By: #### [id number] #### [facility] (DEFAULT) [address] [place] [address] Cult,Urineon 01-28-2025 Cult,Urine Specimen Description .BLADDER URINE FROM CYSTOSCOPY Special Requests Site: Urine Culture NO GROWTH Report Status FINAL 01/28/2025 Normal [facility] Comment on above: Performed By: #### B MP #### [facility] [address] [place], [place] [address] Beater Operator: Alejandro Salazar MD Culture, Urineon 01-28-2025 Microorganism identified Cx Nom (Unsp spec) NO GROWTH [facility] Service comment (Unsp spec) [Interp] Site: Urine [facility] Specimen Description .BLADDER URINE FROM CYSTOSCOPY [facility] Basic Metabolic Profon 01-27 Anion gap [Moles/Vol] 9 mmol/L Normal 9-16 [facility] Comment on above: Performed By: #### B MP #### [facility] [address] [place] [address] Beater Operator: Alejandro Salazar MD Calcium [Mass/Vol] 8.3 mg/dL Low 8.6-10.4 [facility] Comment on above: Performed By: #### B MP #### [address] [address] Beater Operator: Alejandro Salazar MD Chloride [Moles/Vol] 108 mmol/L High 98-107 [place] Comment on above: Performed By: #### B MP #### [facility] [address] [place] [address] Beater Operator: Alejandro Salazar MD CO2 [Moles/Vol] 22 mmol/L Normal 20-31 [facility] Comment on above: Performed By: #### B MP #### [address] [address] Beater Operator: Alejandro Salazar MD Creatinine [Mass/Vol] 0.7 mg/dL Normal 0.6-0.9 [facility] Comment on above: Performed By: #### B MP #### [address] [address] Beater Operator: Alejandro Salazar MD GFR/1.73 sq M.predicted among non-blacks MDRD (S/P/Bld) [Vol rate/Area] mL/min/{1.73_m2} Normal >60 [facility] Comment on above: Result Comment: These results are not intended for use in patients <18 years of age. eGFR results are calculated without a race factor using the 2020 CKD-EPI equation. Careful clinical correlation is recommended, particularly when comparing to results calculated using previous equations. The CKD-EPI equation is less accurate in patients with extremes of muscle mass, extra-renal metabolism of creatine, excessive creatine ingestion, or following therapy that affects renal tubular secretion. Performed By: #### B MP #### [address] [address] Beater Operator: Alejandro Salazar MD Glucose [Mass/Vol] 85 mg/dL Normal 74-99 [facility] Comment on above: Performed By: #### B MP #### [address] [address] Beater Operator: Alejandro Salazar MD Potassium [Moles/Vol] 3.9 mmol/L Normal 3.7-5.3 [facility] Comment on above: Performed By: #### B MP #### [facility] [address] [place] [address] Beater Operator: Alejandro Salazar MD Sodium [Moles/Vol] 139 mmol/L Normal 136-145 [facility] Comment on above: Performed By: #### B MP #### [facility] [address] [place] [address] Beater Operator: Alejandro Salazar MD Urea nitrogen [Mass/Vol] 11 mg/dL Normal 6-20 [facility] Comment on above: Performed By: #### B MP #### [facility] [place] [address] Beater Operator: Alejandro Salazar MD Basic metabolic panelon - Anion gap [Moles/Vol] 9 mmol/L 9 - 16 mmol/L [facility] Calcium [Mass/Vol] 8.3 mg/dL Low 8.6 - 10. 4 mg/dL [facility] Chloride [Moles/Vol] 108 mmol/L High 98 - 10 7 mmol/L [facility] CO2 [Moles/Vol] 22 mmol/L 20 - 31 mmol/L [facility] Creatinine [Mass/Vol] 0.7 mg/dL 0.6 - 0.9 mg/dL [facility] Est, Glom Filt Rate - PINF [facility] Comment on above: These results are not intended for use in patients <18 years of age. eGFR results are calculated without a race factor using the 2020 CKD-EPI equation. Careful clinical correlation is recommended, particularly when comparing to results calculated using previous equations. The CKD-EPI equation is less accurate in patients with extremes of muscle mass, extra-renal metabolism of creatine, excessive creatine ingestion, or following therapy that affects renal tubular secretion. Glucose [Mass/Vol] 85 mg/dL 74 - 99 mg/dL [facility] Interpretation and review of laboratory results Abnormal [facility] Potassium [Moles/Vol] 3.9 mmol/L 3.7 - 5.3 mmol/L [facility] Sodium [Moles/Vol] 139 mmol/L 136 - 145 mmol/L [facility] Urea nitrogen [Mass/Vol] 11 mg/dL 6 - 20 mg/dL [facility] CBC auto differentialon 01-17 Basophils (Bld) [#/Vol] 0.04 10*3/uL [facility] Basophils/100 WBC (Bld) 1 % 0 - 2 % [facility] Eosinophils (Bld) [#/Vol] 0.14 10*3/uL [facility] Eosinophils/100 WBC (Bld) 4 % 1 - 4 % [facility] Erythrocyte distribution width (RBC) [Ratio] 12.6 % 11.8 - 14.4 % [facility] Hematocrit (Bld) [Volume fraction] 34.2 % Low 36.3 - 47.1 % [facility] Hemoglobin (Bld) [Mass/Vol] 10.7 g/dL Low 11.9 - 15.1 g/dL [facility] Immature granulocytes (Bld) [#/Vol] [facility] Immature granulocytes/100 WBC (Bld) 0 % 0 [facility] Interpretation and review of laboratory results Abnormal [facility] Lymphocytes/100 WBC (Bld) 55 % High 24 - 43 % [facility] Lymphocytes/100 WBC (Bld) 2.11 % [facility] MCH (RBC) [Entitic mass] 27.1 pg 25.2 - 33.5 pg [facility] MCHC (RBC) [Mass/Vol] 31.3 g/dL 28.4 - 34.8 g/dL [facility] MCV (RBC) [Entitic vol] 86.6 fL 82.6 - 102.9 fL [facility] Monocytes/100 WBC (Bld) 9 % 3 - 12 % [facility] Monocytes/100 WBC (Bld) 0.35 % [facility] Neutrophils/100 WBC (Bld) 31 % Low 36 - 65 % [facility] Nucleated RBC/100 WBC (Bld) [Ratio] 0 % 0.0 per 100 WBC [facility] Platelet mean volume (Bld) [Entitic vol] 9.1 fL 8.1 - 13.5 fL [facility] Platelets (Bld) [#/Vol] 238 10*3/uL [facility] RBC (Bld) [#/Vol] 3.95 10*6/uL 3.95 - 5.1 1 m/uL [facility] Segmented neutrophils/100 WBC (Bld) 1.21 % Low [facility] WBC other (Bld) [#/Vol] 3.9 [facility] CBC with Diffon 01-27-2025 Abs. Basophil 0.04 k/uL Normal 0.00-0.20 [facility] Comment on above: Performed By: #### B MP #### [place] [address] Beater Operator: Alejandro Salazar MD Abs.Imm.Granulocyte <0.03 Normal 0.00-0.30 [facility] Comment on above: Performed By: #### B MP #### [facility] [address] [place] [address] Beater Operator: Alejandro Salazar MD Abs.Neutrophil (Seg) 1.21 k/uL Low 1.50-8.10 [place] Comment on above: Performed By: #### B MP #### [facility] [address] [place] [address] Beater Operator: Alejandro Salazar MD Basophils/100 WBC (Bld) 1 % Normal 0-2 [facility] Comment on above: Performed By: #### B MP #### [facility] [address] [place] [address] Beater Operator: Alejandro Salazar MD Eosinophils (Bld) [#/Vol] 0.14 10*3/uL Normal 0.00-0.44 [facility] Comment on above: Performed By: #### B MP #### [address] [address] Beater Operator: Alejandro Salazar MD Eosinophils/100 WBC (Bld) 4 % Normal 1-4 [facility] Comment on above: Performed By: #### B MP #### [place] [address] Beater Operator: Alejandro Salazar MD Erythrocyte distribution width (RBC) [Ratio] 12.6 % Normal 11.8-14.4 [facility] Comment on above: Performed By: #### B MP #### [place] [address] Beater Operator: Alejandro Salazar MD Hematocrit (Bld) [Volume fraction] 34.2 % Low 36.3-47.1 [facility] Comment on above: Performed By: #### B MP #### [place] [address] Beater Operator: Alejandro Salazar MD Hemoglobin (Bld) [Mass/Vol] 10.7 g/dL Low 11.9-15.1 [facility] Comment on above: Performed By: #### B MP #### [place] [address] Beater Operator: Alejandro Salazar MD Immature granulocytes/100 WBC (Bld) 0 % Normal 0 [facility] Comment on above: Performed By: #### B MP #### [place] [address] Beater Operator: Alejandro Salazar MD Lymphocytes (Bld) [#/Vol] 2.11 10*3/uL Normal 1.10-3.70 [facility] Comment on above: Performed By: #### B MP #### [address] [address] Beater Operator: Alejandro Salazar MD Lymphocytes/100 WBC (Bld) 55 % High 24-43 [facility] Comment on above: Performed By: #### B MP #### [address] [address] Beater Operator: Alejandro Salazar MD MCH (RBC) [Entitic mass] 27.1 pg Normal 25.2-33.5 [facility] Comment on above: Performed By: #### B MP #### [address] [address] Beater Operator: Alejandro Salazar MD MCHC (RBC) [Mass/Vol] 31.3 g/dL Normal 28.4-34.8 [facility] Comment on above: Performed By: #### B MP #### [address] [address] Beater Operator: Alejandro Salazar MD MCV (RBC) [Entitic vol] 86.6 fL Normal 82.6-102.9 [facility] Comment on above: Performed By: #### B MP #### [address] [address] Beater Operator: Alejandro Salazar MD Monocytes (Bld) [#/Vol] 0.35 10*3/uL Normal 0.10-1.20 [facility] Comment on above: Performed By: #### B MP #### [address] [address] Beater Operator: Alejandro Salazar MD Monocytes/100 WBC (Bld) 9 % Normal 3-12 [facility] Comment on above: Performed By: #### B MP #### [address] [address] Beater Operator: Alejandro Salazar MD Neutrophil (Seg) 31 % Low 36-65 [facility] Comment on above: Performed By: #### B MP #### [address] [address] Beater Operator: Alejandro Salazar MD NRBC Automated 0.0 per 100 WBC Normal 0.0 [facility] Comment on above: Performed By: #### B MP #### [address] [address] Beater Operator: Alejandro Salazar MD Platelet mean volume (Bld) [Entitic vol] 9.1 fL Normal 8.1-13.5 [facility] Comment on above: Performed By: #### B MP #### [address] [address] Beater Operator: Alejandro Salazar MD Platelets (Bld) [#/Vol] 238 10*3/uL Normal 138-453 [facility] Comment on above: Performed By: #### B MP #### [address] [address] Beater Operator: Alejandro Salazar MD RBC (Bld) [#/Vol] 3.95 10*6/uL Normal 3.95-5.11 [facility] Comment on above: Performed By: #### B MP #### [address] [address] Beater Operator: Alejandro Salazar MD WBC (Bld) [#/Vol] 3.9 10*3/uL Normal 3.5-11.3 [facility] Comment on above: Performed By: #### B MP #### [address] [address] Beater Operator: Alejandro Salazar MD Consent Formson 01-27-2025 Consent Forms [id number]. [id number] Normal [facility] Cult,Urineon 01-27-2025 Cult,Urine Specimen Description .URINE Culture NO SIGNIFICANT GROWTH Report Status FINAL 01/27/2025 Normal [facility] Comment on above: Performed By: #### B #### [facility] [place] [address] Beater Operator: Alejandro Salazar MD Culture, Urineon 01-27-2025 Microorganism identified Cx Nom (Unsp spec) NO SIGNIFICANT GROWTH [facility] Specimen Description .[facility]INE [facility] [employer] [facility] FLUORO FOR SURGICAL PROCEDUR ESon 01-27-2025 FLUORO FOR SURGICAL PROCEDURES Radiology exam is complete. No Radiologist dictation. Please follow up with ordering provider. Final result Normal [facility] Guidance-- during surgeryon 01-27-2025 Radiology exam is complete. No Radiologist dictation. Please follow up with ordering provider. [facility] RIS CONSOLIDATED .Auto Diff 1on 01-26-2025 Auto [place] % 10 % Normal 1-12 [facility] Comment on above: Performed By: #### 7 [id number], [id number], [id number], [id number], [id number] #### [facility] (DEFAULT) [address] [place] [address] Baso Abs# 0.0 x10 Normal 0.0-0.2 [facility] Comment on above: Performed By: #### 7 [id number], [id number], [id number], [id number], [id number] #### [facility] (DEFAULT) [address] [place] [address] Basophils/100 WBC (Bld) 0.7 % Normal 0.2-2.0 [facility] Comment on above: Performed By: #### 7 [id number], [id number], [id number], [id number], [id number] #### [facility] (DEFAULT) [address] [place] [address] Eos Abs# 0.1 x10 Normal 0.0-0.4 [facility] Comment on above: Performed By: #### 7 [id number], [id number], [id number], [id number], [id number] #### [facility] (DEFAULT) [address] [place] [address] Eosinophils/100 WBC (Bld) 2.4 % Normal 0.9-4.0 [facility] Comment on above: Performed By: #### 7 [id number], [id number], [id number], [id number], [id number] #### [facility] (DEFAULT) [address] [place] [address] Lymph Abs# 1.8 x10 Normal 1.3-2.9 [facility] Comment on above: Performed By: #### 7 [id number], [id number], [id number], [id number], [id number] #### [facility] (DEFAULT) [address] [place] [address] Lymphocytes/100 WBC (Bld) 38 % Normal 14-48 [facility] Comment on above: Performed By: #### 7 [id number], [id number], [id number], [id number], [id number] #### [facility] (DEFAULT) [address] [place] [address] [place] Abs# 0.5 x10 Normal 0.0-0.8 [facility] Comment on above: Performed By: #### 7 [id number], [id number], [id number], [id number], [id number] #### [facility] (DEFAULT) [address] [place] [address] Neut Abs# 2.4 x10 Normal 1.5-9.2 [facility] Comment on above: Performed By: #### 7 [id number], [id number], [id number] #### [facility] (DEFAULT) [address] [place] [address] Neutrophils/100 WBC (Bld) 49 % Normal 44-88 [facility] Comment on above: Performed By: #### [id number], [id number] #### [facility] (DEFAULT) [address] [place] [id number] Basic Metabolic Panelon 04-1 0-2025 Anion gap [Moles/Vol] 12 mmol/L 9 - 16 mmol/L [facility] Calcium [Mass/Vol] 8.6 mg/dL 8.6 - 10. 4 mg/dL [facility] Chloride [Moles/Vol] 106 mmol/L 98 - 10 7 mmol/L [facility] CO2 [Moles/Vol] 21 mmol/L 20 - 31 mmol/L [facility] Creatinine [Mass/Vol] 0.9 mg/dL 0.6 - 0.9 mg/dL [facility] Est, Glom Filt Rate 87 - PINF [facility] Comment on above: These results are not intended for use in patients <18 years of age. eGFR results are calculated without a race factor using the 2020 CKD-EPI equation. Careful clinical correlation is recommended, particularly when comparing to results calculated using previous equations. The CKD-EPI equation is less accurate in patients with extremes of muscle mass, extra-renal metabolism of creatine, excessive creatine ingestion, or following therapy that affects renal tubular secretion. Glucose [Mass/Vol] 126 mg/dL High 74 - 99 mg/dL [facility] Interpretation and review of laboratory results Abnormal [facility] Potassium [Moles/Vol] 3.7 mmol/L 3.7 - 5.3 mmol/L [facility] Sodium [Moles/Vol] 139 mmol/L 136 - 145 mmol/L [facility] Urea nitrogen [Mass/Vol] 12 mg/dL 6 - 20 mg/dL [facility] Basic Metabolic Profon 01-26 Anion gap [Moles/Vol] 12 mmol/L Normal 9-16 [facility] Comment on above: Performed By: #### B MP #### [facility] [address] [place] [id number] Beater Operator: Alejandro Salazar MD Calcium [Mass/Vol] 8.6 mg/dL Normal 8.6-10.4 [facility] Comment on above: Performed By: #### B MP #### [facility] [address] [place] [address] Beater Operator: Alejandro Salazar MD Chloride [Moles/Vol] 106 mmol/L Normal 98-107 [place] Comment on above: Performed By: #### B MP #### [address] [address] Beater Operator: Alejandro Salazar MD CO2 [Moles/Vol] 21 mmol/L Normal 20-31 [facility] Comment on above: Performed By: #### B MP #### [address] [address] Beater Operator: Alejandro Salazar MD Creatinine [Mass/Vol] 0.9 mg/dL Normal 0.6-0.9 [facility] Comment on above: Performed By: #### B MP #### [address] [address] Beater Operator: Alejandro Salazar MD GFR/1.73 sq M.predicted among non-blacks MDRD (S/P/Bld) [Vol rate/Area] 87 mL/min/{1.73_m2} Normal >60 [facility] Comment on above: Result Comment: These results are not intended for use in patients <18 years of age. eGFR results are calculated without a race factor using the 2020 CKD-EPI equation. Careful clinical correlation is recommended, particularly when comparing to results calculated using previous equations. The CKD-EPI equation is less accurate in patients with extremes of muscle mass, extra-renal metabolism of creatine, excessive creatine ingestion, or following therapy that affects renal tubular secretion. Performed By: #### B MP #### [address] [address] Beater Operator: Alejandro Salazar MD Glucose [Mass/Vol] 126 mg/dL High 74-99 [facility] Comment on above: Performed By: #### B MP #### [address] [address] Beater Operator: Alejandro Salazar MD Potassium [Moles/Vol] 3.7 mmol/L Normal 3.7-5.3 [facility] Comment on above: Performed By: #### B MP #### [facility] [address] [place], [place] [id number] Beater Operator: Alejandro Salazar MD Sodium [Moles/Vol] 139 mmol/L Normal 136-145 [facility] Comment on above: Performed By: #### B MP #### [facility] [address] [place] [address] [id number] Beater Operator: Alejandro Salazar MD Urea nitrogen [Mass/Vol] 12 mg/dL Normal 6-20 [facility] Comment on above: Performed By: #### B MP #### [facility] [address] [place] [address] [id number] Beater Operator: Alejandro Salazar MD CBCon 01-26-2025 Erythrocyte distribution width (RBC) [Ratio] 12.7 % 11.8 - 14.4 % [facility] Hematocrit (Bld) [Volume fraction] 38.1 % 36.3 - 47.1 % [facility] Hemoglobin (Bld) [Mass/Vol] 12 g/dL 11.9 - 15.1 g/dL [facility] MCH (RBC) [Entitic mass] 27.9 pg 25.2 - 33.5 pg [facility] MCHC (RBC) [Mass/Vol] 31.5 g/dL 28.4 - 34.8 g/dL [facility] MCV (RBC) [Entitic vol] 88.6 fL 82.6 - 102.9 fL [facility] Nucleated RBC/100 WBC (Bld) [Ratio] 0 % 0.0 per 100 WBC [facility] Platelet mean volume (Bld) [Entitic vol] 9 fL 8.1 - 13.5 fL [facility] Platelets (Bld) [#/Vol] 261 10*3/uL [facility] RBC (Bld) [#/Vol] 4.3 10*6/uL 3.95 - 5.1 1 m[facility]L [facility] W[facility] other (Bld) [#/Vol] 5.9 [facility] Erythrocyte distribution width (RBC) [Ratio] 12.7 % Normal 11.8-14.4 [facility] Comment on above: Performed By: #### B MP #### [address] [address] Beater Operator: Alejandro Salazar MD Hematocrit (Bld) [Volume fraction] 38.1 % Normal 36.3-47.1 [facility] Comment on above: Performed By: #### B MP #### [address] [address] Beater Operator: Alejandro Salazar MD Hemoglobin (Bld) [Mass/Vol] 12.0 g/dL Normal 11.9-15.1 [facility] Comment on above: Performed By: #### B MP #### [address] [address] Beater Operator: Alejandro Salazar MD MCH (RBC) [Entitic mass] 27.9 pg Normal 25.2-33.5 [facility] Comment on above: Performed By: #### B MP #### [facility] [address] [place] [address] Beater Operator: Alejandro Salazar MD MCHC (RBC) [Mass/Vol] 31.5 g/dL Normal 28.4-34.8 [facility] Comment on above: Performed By: #### B MP #### [facility] [address] [place] [address] Beater Operator: Alejandro Salazar MD MCV (RBC) [Entitic vol] 88.6 fL Normal 82.6-102.9 [facility] Comment on above: Performed By: #### B MP #### [facility] [address] [place] [address] Beater Operator: Alejandro Salazar MD NRBC Automated 0.0 per 100 WBC Normal 0.0 [facility] Comment on above: Performed By: #### B MP #### [address] [address] Beater Operator: Alejandro Salazar MD Platelet mean volume (Bld) [Entitic vol] 9.0 fL Normal 8.1-13.5 [facility] Comment on above: Performed By: #### B MP #### [address] [address] Beater Operator: Alejandro Salazar MD Platelets (Bld) [#/Vol] 261 10*3/uL Normal 138-453 [facility] Comment on above: Performed By: #### B MP #### [address] [address] Beater Operator: Alejandro Salazar MD RBC (Bld) [#/Vol] 4.30 10*6/uL Normal 3.95-5.11 [facility] Comment on above: Performed By: #### B MP #### [address] [address] Beater Operator: Alejandro Salazar MD WBC (Bld) [#/Vol] 5.9 10*3/uL Normal 3.5-11.3 [facility] Comment on above: Performed By: #### B MP #### [address] [address] Beater Operator: Alejandro Salazar MD CBC w/ Auto Diffon Erythrocyte distribution width (RBC) [Ratio] 13.6 % Normal 11.5-15.0 [facility] Comment on above: Performed By: #### 7 006696, [id number], [id number], 13707926, [id number] #### [facility] (DEFAULT) [address] [place] [address] Hematocrit (Bld) [Volume fraction] 37.0 % Normal 33.7-40.4 [facility] Comment on above: Performed By: #### 7 788422, [id number], [id number], 25556004, [id number] #### [facility] (DEFAULT) [address] [place] [address] Hemoglobin (Bld) [Mass/Vol] 12.7 g/dL Normal 11.3-15.9 [facility] Comment on above: Performed By: #### 7 398195, [id number], [id number], 85115883, 611089259 #### [facility] (DEFAULT) [address] [place] [address] Man Diff? Auto Invalid Interpretation Code [facility] Comment on above: Performed By: #### 7 191247, [id number], [id number], 65895581, [id number] #### [facility] (DEFAULT) [address] [place] [address] MCH (RBC) [Entitic mass] 29 pg Normal 24-34 [facility] Comment on above: Performed By: #### 7 569066, [id number], [id number], 88784332, 149797849 #### [facility] (DEFAULT) [address] [place] [address] MCHC (RBC) [Mass/Vol] 34 g/dL Normal 26-37 [facility] Comment on above: Performed By: #### 7 622793, [id number], 1464025390, 59825794, [id number] #### [facility] (DEFAULT) [address] [place] [address] MCV (RBC) [Entitic vol] 84 fL Normal 81-100 [facility] Comment on above: Performed By: #### 7 286935, [id number], 6418964070, 04718364, 673083827 #### [facility] (DEFAULT) [address] [place] [address] Platelet 287 x10 Normal 138-427 [facility] Comment on above: Performed By: #### 7 609506, [id number], 4295136038, 28342603, 187017919 #### [facility] (DEFAULT) [address] [place] [address]87[address] Platelet mean volume (Bld) [Entitic vol] 7.3 fL Normal 6.3-10.2 [facility] Comment on above: Performed By: #### 7 833798, 6855574803, 4071193316, 51735174, 537218016 #### [facility] (DEFAULT) [address] [place] [address] RBC 4.39 x10 Normal 3.70-5.30 [facility] Comment on above: Performed By: #### 7 495433, 4402297971, 6409980731, 20333044, 249575926 #### [facility] (DEFAULT) [address] [place] [address] WBC 4.8 x10 Normal 3.5-10.5 [facility] Comment on above: Performed By: #### 7 269767, 0917037291, 4032153758, 78021615, 201290434 #### [facility] (DEFAULT) [address] [place] [address] CMP Standardon 01-26-2025 eGFR Non AA >60 Invalid Interpretation Code [facility] Comment on above: Performed By: #### 7 683332, [id number], 2201786863, 09791073, 679347741 #### [facility] (DEFAULT) [address] [place] [address] 26006 eGFR AA >60 Invalid Interpretation Code [facility] Comment on above: Performed By: #### 7 933247, 0139721372, 8593019334, 33635157, 772786455 #### [facility] (DEFAULT) [address] [place] [address] Albumin [Mass/Vol] 3.7 g/dL Normal 3.5-5.0 [facility] Comment on above: Performed By: #### 7 719760, 2496036610, 9952366518, 38155795, 394097183 #### [facility] (DEFAULT) [address] [place] [address] Albumin/Globulin [Mass ratio] 1.0 {ratio} Low 1.4-2.6 [facility] Comment on above: Performed By: #### 7 855126, 0590943923, 9494608033, 31315721, 665113166 #### [facility] (DEFAULT) [address] [place] [address] Alk Phos 70 IU/L Normal 32-91 [facility] Comment on above: Performed By: #### 7 226578, 2323825566, 1377250706, 68014319, 797783171 #### [facility] (DEFAULT) [address] [place] [address] ALT [Catalytic activity/Vol] 75.0 U/L High 14.0-54.0 [facility] Comment on above: Performed By: #### 7 215380, 6117936612, 3410445571, 73642079, 329212583 #### [facility] (DEFAULT) [address] [place] [address] AST [Catalytic activity/Vol] 27 U/L Normal 15-41 [facility] Comment on above: Performed By: #### 7 298210, 7279947240, 9420682467, 16645938, 539700727 #### [facility] (DEFAULT) [address] [place] [address] Bili Total 0.7 mg/dL Normal 0.3-1.2 [facility] Comment on above: Performed By: #### 7 422930, 1507550699, 4312552254, 20671556, 917007033 #### [facility] (DEFAULT) [address] [place] [address] Creatinine [Mass/Vol] 0.94 mg/dL Normal 0.60-1.30 [facility] Comment on above: Performed By: #### 7 488630, 2528658626, 2742536002, 75483756, 703588072 #### [facility] (DEFAULT) [address] [place] [address] Globulin (S) [Mass/Vol] 3.5 g/dL Normal 1.5-4.3 [facility] Comment on above: Performed By: #### 7 345873, 5752145021, 1222494578, 33261894, 844624011 #### [facility] (DEFAULT) [address] [place] [address] Osmolality 277 mOsm/L Invalid Interpretation Code [facility] Comment on above: Performed By: #### 7 038948, 8584139837, 3571051854, 65615495, 862378765 #### [facility] (DEFAULT) [address] [place] [address] Protein [Mass/Vol] 7.2 g/dL Normal 6.5-8.1 [facility] Comment on above: Performed By: #### 7 292372, 7841032788, 2319032754, 38527970, 856701205 #### [facility] (DEFAULT) [address] [place] [address] Urea nitrogen [Mass/Vol] 13 mg/dL Normal 8-26 [facility] Comment on above: Performed By: #### 7 576024, 0315951140, 8525181126, 62590020, 830064675 #### [facility] (DEFAULT) [address] [place] [address] Urea nitrogen/Creatinine [Mass ratio] 13.8 mg/mg Normal 4.6-16.2 [facility] Comment on above: Performed By: #### 7 196997, 7915050235, 6726186450, 16622922, 102272621 #### [facility] (DEFAULT) [address] [place] [address] Anion gap [Moles/Vol] 13.6 mmol/L Normal 5.0-19.0 [facility] Comment on above: Performed By: #### 7 087355, 4900475341, 8247655262, 00102592, 529816881 #### [facility] (DEFAULT) [address] [place] [address]148 Calcium [Mass/Vol] 9.4 mg/dL Normal 8.9-10.3 [facility] Comment on above: Performed By: #### 7 522953, 5477185094, 6592648039, 66522168, 621190655 #### [facility] (DEFAULT) [address] [place] [address] Chloride [Moles/Vol] 104 mmol/L Normal 101-111 [facility] Comment on above: Performed By: #### 7 672488, 9219836038, 0687928057, 57646384, 369503455 #### [facility] (DEFAULT) [address] [place] [address]019 CO2 [Moles/Vol] 25 mmol/L Normal 21-32 [facility] Comment on above: Performed By: #### 7 724497, 4495617526, 3851665989, 20018938, 550995839 #### [facility] (DEFAULT) [address] [place] [address] Glucose [Mass/Vol] 93.0 mg/dL Normal 74.0-118.0 [facility] Comment on above: Performed By: #### 7 149582, 6302441004, 4728692796, 39846293, 513590139 #### [facility] (DEFAULT) [address] [place] [address] Potassium [Moles/Vol] 3.6 mmol/L Normal 3.6-5.1 [facility] Comment on above: Performed By: #### 7 386478, 2606491867, 5880803114, 29715910, 217779147 #### [facility] (DEFAULT) [address] [place] [address] Sodium [Moles/Vol] 139.0 mmol/L Normal 136.0-144.0 [facility] Comment on above: Performed By: #### 7 600272, 2213916492, 9058876084, 64422384, 202880189 #### [facility] (DEFAULT) [address] [place] [address] Abdomen/Pelvis w/o Contra ston 01-26-2025 CT Abdomen/Pelvis w/o Contrast EXAMINATION: CT Abdomen/Pelvis w/o Contrast HISTORY: left flank pain COMPARISON: CT abdomen pelvis 09/28/2024 TECHNIQUE: Axial, Coronal, and Sagittal images were obtained without and/or with IV contrast as indicated by examination type. Dose reduction techniques were achieved by using automated exposure control and/or adjustment of mA and/or kV according to patient size and/or use of iterative reconstruction technique. FINDINGS: LUNG BASES: No visible pulmonary or pleural disease. LIVER: No enlargement, atrophy, suspicious density, or significant focal lesion. BILIARY: Cholecystectomy. PANCREAS: No lesion, fluid collection, or abnormal duct dilatation. SPLEEN: No enlargement or focal lesion. ADRENALS: No mass or enlargement. KIDNEYS: Multiple nonobstructing stones within kidneys bilaterally; largest on right is 7 mm; largest on left is 9 mm. Moderate left hydronephrosis with ureteral stents in place. BOWEL/MESENTERY: No visible mass, obstruction, or bowel wall thickening. Normal appendix. AORTA/VASCULAR: No aneurysm. RETROPERITONEUM: No mass or adenopathy. LYMPH NODES: No adenopathy. URINARY BLADDER: No visible focal wall thickening, lesion, or calculus. PELVIC ORGANS: 3.4 cm right ovarian cyst. Prior hysterectomy. No visible mass. Pelvic organs appropriate for patient age. ABDOMINAL WALL: No mass or hernia. BONES: No bony lesion or fracture. OTHER: Negative. IMPRESSION: 1. Moderate left hydronephrosis with a ureteral stent already in place and appearing in good position. 2. Bilateral nonobstructing kidney stones. No visible ureteral stones. 3. 3.4 cm right ovarian cyst of doubtful clinical significance since patient describes left side pain. Final Dictated by: Jennifer Gates MD Dictated DT/TM: 01/26/25 1:47 Signed (Electronic Signature): Jennifer Gates MD 01/26/25 2:00 pm Technologist: Boogie COLE [facility] ED Note-Nursingon 01-26-2025 ED Note-Nursing Pt stated she was seen in [facility] recently and Dr. Little is requesting records. [employer] called [facility] to get records faxed. Stated they would be faxing results over. [facility] Extra Blueon 01-26-2025 Tube Collected Yes Invalid Interpretation Code [facility] Comment on above: Performed By: #### 7 148122, [id number], 7929899744, 38449335, 573024998 #### [facility] (DEFAULT) [address] [place] [address]358 Microscopic Urinalysison Bacteria LM Ql (Urine sed) None None [facility] Casts LM.LPF (Urine sed) [#/Area] 2 TO 5 HYALINE Reference range defined for non-centrifuged specimen. [facility] Epithelial cells LM.HPF (Urine sed) [#/Area] 2 TO 5 [facility] RBC LM.HPF (Urine sed) [#/Area] TOO NUMEROUS TO COUNT [facility] Comment on above: Reference range defi salty for non-centrifuged specimen. WBC LM.HPF (Urine sed) [#/Area] 20 TO 50 [facility] Test Serum 1on Preg Serum Internal Control OK [facility] Comment on above: Performed By: #### 7 726399, [id number], 9729168876, 77918135, 749237698 #### [facility] (DEFAULT) [address] [place] [address] 77799 Test Serum Qual Negative [facility] Comment on above: Performed By: #### 7 798671, [id number], 8928189250, 49236678, 880547596 #### [facility] (DEFAULT) [address] [place] [address]355 Stone Analysison 01-26-2025 Calculi description See Note [facility] Comment on above: Result Comment: (NOT E) Specimen consists of one rondon sample. The total weight is less than 2 mg. Performed By: #### A STONE #### [facility] [address] [place] [address] Beater Operator: Mane Tolbert MD Composition See Note [facility] Comment on above: Result Comment: (NOT E) Sample composed primarily of organic material not typically associated with calculi composition. No crystalline material identified. INTERPRETIVE INFORMATION: Calculi (Stone) analysis Calculi are the products of physiological processes that yield crystalline compounds in a matrix of biological compounds and blood. Matrix components are not reported. The clinically significant crystalline components identified in calculi specimens are reported. Gross description may not be consistent with composition determined by FTIR analysis. Performed By: [facility] [address] [place] [address] Borough Coordinator: Jorge Melendrez MD, PhD CLIA Number: [id number] Performed By: #### A STONE #### [facility] [address] [place] [address] Beater Operator: Mane Tolbert MD Mass See Note Normal [facility] Comment on above: Result Comment: (NOT E) Sample mass < 2 mg. Small sample size prevents accurate weight determination. Performed By: #### A STONE #### [facility] [address] [place], [place] [id number] Beater Operator: Mane Tolbert MD Transfer Noteon 01-26-2025 Transfer Note Patient requires transfer to [facility] for a diagnosis of hydronephrosis. 1527- Kylie from [facility], Tamiko kim, hospitalist speaks to Dr. Little, accepts, top gun is open. 1539- Called [facility], string winding machine operator Austin gave 20 minute ETA. 1547- [facility] arrives 1550- [facility] calls, bed assignment given, room 321 bed 2, report number [id number] 1610- [facility] departs [Electronically Signed on: 01/26/2025 16:28 EDT] Beth Rodriguez RN [Verified on: 01/26/2025 16:28 EDT] Beth Rodriguez RN 1630- Dr. Little signs physician note, this note was faxed to [facility] at fax number [phone]. [Electronically Signed on: 01/26/2025 16:31 EDT] Beth Rodriguez RN Normal [facility] UA [id number] 01-26-2025 UA Bacteria Trace [facility] Comment on above: Order Comment: Urina lysis Microscopic order added on by Solution[employer] Expert Rules system. Performed By: #### 6 [id number] #### [facility] (DEFAULT) [address] [place] [address] UA Comment. See Comment Invalid Interpretation Code [facility] Comment on above: Order Comment: Urina lysis Microscopic order added on by [employer] system. Result Comment: 4+ S ulfa Crystals present Performed By: #### 6 [id number] #### [facility] (DEFAULT) [address] [place] [address] UA RBC Gross Blood [facility] Comment on above: Order Comment: Urina lysis Microscopic order added on by [employer] system. Performed By: #### 6 [id number] #### [facility] (DEFAULT) [address] [place] [address] UA Squam Epi Moderate [facility] Comment on above: Order Comment: Urina lysis Microscopic order added on by [employer] system. Performed By: #### 6 950455 #### [facility] (DEFAULT) [address] [place] [address] UA WBC 3-5 [facility] Comment on above: Order Comment: Urina lysis Microscopic order added on by [employer] system. Performed By: #### 6 823344 #### [facility] (DEFAULT) [address] [place] [address] UA w Culture if Ind Standard on 01-26-2025 Breakpoint UA [facility] Comment on above: Performed By: #### 6 382631 #### [facility] (DEFAULT) [address] [place] [address] Color (U) Red [facility] Comment on above: Result Comment: Test cannot be satisfactorily determined due to intensely colored urine. Parameters which will be affected are: GLU, BRAIN, URO, KET, BLO, PRO, NIT, LISSA, SG, AND pH. Performed By: #### 6 356847 #### [facility] (DEFAULT) [address] [place] [address] 97855 Culture? Yes Normal [facility] Comment on above: Result Comment: Resu lt created by rule GL_MAGR_ADD_UA_CULT Result created by rule GL_MAGR_ADD_UA_CULT1 Performed By: #### 6 [id number] #### [facility] (DEFAULT) [address] [place] [address] 43654 Glucose (U) [Mass/Vol] Negative Normal [facility] Comment on above: Performed By: #### 6 [id number] #### [facility] (DEFAULT) [address] [place] [address] 51231 Ketones Ql (U) Negative Normal [facility] Comment on above: Performed By: #### 6 046366 #### [facility] (DEFAULT) [address] [place] [address] 90115 Micro? Indicated Invalid Interpretation Code [facility] Comment on above: Result Comment: Resu lt created by rule GL_MAGR_ADD_UA_MICRO Performed By: #### 6 [id number] #### [facility] (DEFAULT) [address] [place] [address] 08070 UA Bilirubin SMALL Abnormal [facility] Comment on above: Performed By: #### 6 499161 #### [facility] (DEFAULT) [address] [place] [address] 04381 UA Blood LARGE Abnormal NEGATIVE [facility] Comment on above: Performed By: #### 6 484934 #### [facility] (DEFAULT) [address] [place] [address] 45625 UA Clarity CLOUDY Abnormal CLEAR [facility] Comment on above: Performed By: #### 6 558255 #### [facility] (DEFAULT) [address] [place] [address] 48221 UA Leuk Est MODERATE Abnormal NEGATIVE [facility] Comment on above: Performed By: #### 6 830486 #### [facility] (DEFAULT) [address] [place] [address] 00910 UA Nitrite Negative Normal [facility] Comment on above: Performed By: #### 6 703972 #### [facility] (DEFAULT) [address] [place] [address] 24551 UA pH 7.0 Normal 5-8 [facility] Comment on above: Performed By: #### 6 262688 #### [facility] (DEFAULT) [address] [place] [address] 49777 UA Protein 100 Abnormal NEGATIVE [facility] Comment on above: Performed By: #### 6 965309 #### [facility] (DEFAULT) [address] [place] [address] 95009 UA Spec Grav 1.020 Normal 1.001-1.035 [facility] Comment on above: Performed By: #### 6 950687 #### [facility] (DEFAULT) [address] [place] [address] 67569 UA Urobilinogen 0.2 mg/dL Normal 0.2-1.0 [facility] Comment on above: Performed By: #### 6 353829 #### [facility] (DEFAULT) [address] [place] [address] 38182 Urine Source Clean Catch Normal [facility] Comment on above: Performed By: #### 6 [id number] #### [facility] (DEFAULT) [address] [place] [address] 46953 UA w/Reflex Cultureon 2024 Bilirubin, SemiQt,Ur Negative Normal [facility] [place] Comment on above: Performed By: #### U AX, UMICAO #### [facility] [address] [place] [address] [id number] Beater Operator: Alejandro Salazar MD Blood, Urine LARGE Abnormal NEG [facility] Comment on above: Performed By: #### U AX, UMICAO #### [facility] [address] [place], [place] [id number] Beater Operator: Alejandro Salazar MD Clarity (U) Cloudy Abnormal CLEAR [facility] Comment on above: Performed By: #### U AX, UMICAO #### [facility] [address] [place], [place] [id number] Beater Operator: Alejandro Salazar MD Color (U) [place] Abnormal YEL [facility] Comment on above: Result Comment: INTE RPRET WITH CAUTION DUE TO INTENSE COLOR OF URINE. Performed By: #### U AX, UMICAO #### [facility] [address] [place] [address] Beater Operator: Alejandro Salazar MD Glucose Ql (U) Negative Normal NEG [facility] Comment on above: Performed By: #### U AX, UMICAO #### [facility] [address] [place] [address] Beater Operator: Alejandro Salazar MD Ketones Ql (U) Negative Normal NEG [facility] Comment on above: Performed By: #### U AX, UMICAO #### [facility] [address] [place] [address] Beater Operator: Alejandro Salazar MD Leukocyte esterase Test strip Ql (U) MODERATE Abnormal NEG [facility] Comment on above: Performed By: #### U AX, UMICAO #### [facility] [address] [place] [address] Beater Operator: Alejandro Salazar MD Nitrite,Ur Negative Normal NEG [facility] Comment on above: Performed By: #### U AX, UMICAO #### [facility] [address] [place] [address] Beater Operator: Alejandro Salazar MD PH,Ur 6.5 Normal 5.0-8.0 [facility] Comment on above: Performed By: #### U AX, UMICAO #### [facility] [address] [place] [address] Beater Operator: Alejandro Salazar MD Protein Ql (U) 2+ mg/dL Abnormal NEG [facility] Comment on above: Performed By: #### U AX, UMICAO #### [facility] [address] [place] [address] Beater Operator: Alejandro Salazar MD Spec. [place],Ur 1.016 Normal 1.005-1.030 [facility] Comment on above: Performed By: #### U RIZWANA TAYLOR #### [facility] [address] [place] [address] Beater Operator: Alejandro Salazar MD Urobilinogen,Ur Normal Normal 0.0-1.0 [facility] Comment on above: Performed By: #### U RIZWANA TAYLOR #### [facility] [address] [place] [address] Beater Operator: Alejandro Salazar MD Urinalysis with Reflex to Cu ltureon 01-26-2025 Bilirubin Ql (U) Negative NEGATIVE [facility] Clarity (U) Cloudy Abnormal Clear [facility] Color (U) [place] Abnormal Yellow [facility] Comment on above: INTERPRET WITH CAUTI ON DUE TO INTENSE COLOR OF URINE. Glucose Test strip (U) [Mass/Vol] Negative NEGATIVE mg/dL [facility] Hemoglobin Auto test strip Ql (U) LARGE Abnormal NEGATIVE [facility] Interpretation and review of laboratory results Abnormal [facility] Ketones (U) [Mass/Vol] Negative NEGATIVE mg/dL [facility] Leukocyte esterase Test strip Ql (U) MODERATE Abnormal NEGATIVE [facility] Nitrite Ql (U) Negative NEGATIVE [facility] pH (U) 6.5 [pH] 5.0 - 8.0 [facility] Protein (U) [Mass/Vol] 2+ Abnormal NEGATIVE mg/dL [facility] Specific gravity (U) [Rel density] 1.016 1.005 - 1.030 [facility] Urobilinogen Qn (U) Normal 0.0 - 1. 0 EU/dL [facility] Urinalysis,Microon 5 Bacteria None Normal NONE [facility] Comment on above: Performed By: #### U RIZWANA TAYLOR #### [facility] [address] [place] [address] Beater Operator: Alejandro Salazar MD Casts 2 TO 5 HYALINE Normal 0-8 [facility] Comment on above: Result Comment: Refe rence range defined for non-centrifuged specimen. Performed By: #### U AX UMICAO #### [address] [address] Beater Operator: Alejandro Salazar MD Epithelial cells LM Ql (Urine sed) 2 TO 5 Normal 0-5 [facility] Comment on above: Performed By: #### U AX UMICAO #### [address] [address] Beater Operator: Alejandro Salazar MD Urine RBC's TOO NUMEROUS TO COUNT Normal 0-4 [facility] Comment on above: Result Comment: Refe rence range defined for non-centrifuged specimen. Performed By: #### U AXKYLEICAO #### [address] [address] Beater Operator: Alejandro Salazar MD Urine WBC's 20 TO 50 Normal 0-5 [facility] Comment on above: Performed By: #### U AXKYLEICAO #### [address] [address] Beater Operator: Alejandro Salazar MD Cult,Urineon 01-23-2025 Cult,Urine Specimen Description .BLADDER URINE FROM CYSTOSCOPY Special Requests Site: Urine Culture NO GROWTH Report Status FINAL 01/23/2025 Normal [facility] Comment on above: Performed By: #### U RC #### [address] [address] Beater Operator: Alejandro Salazar MD Basic Metabolic Profon 01-22 Anion gap [Moles/Vol] 12 mmol/L Normal 9-16 [facility] Comment on above: Performed By: #### B MP #### [address] [address] Beater Operator: Alejandro Salazar MD Calcium [Mass/Vol] 8.4 mg/dL Low 8.6-10.4 [facility] Comment on above: Performed By: #### B MP #### [address] [address] Beater Operator: Alejandro Salazar MD Chloride [Moles/Vol] 107 mmol/L Normal 98-107 [place] Comment on above: Performed By: #### B MP #### [address] [address] Beater Operator: Alejandro Salazar MD CO2 [Moles/Vol] 21 mmol/L Normal 20-31 [facility] Comment on above: Performed By: #### B MP #### [address] [address] Beater Operator: Alejandro Salazar MD Creatinine [Mass/Vol] 0.7 mg/dL Normal 0.6-0.9 [facility] Comment on above: Performed By: #### B MP #### [address] [address] Beater Operator: Alejandro Salazar MD GFR/1.73 sq M.predicted among non-blacks MDRD (S/P/Bld) [Vol rate/Area] mL/min/{1.73_m2} Normal >60 [facility] Comment on above: Result Comment: These results are not intended for use in patients <18 years of age. eGFR results are calculated without a race factor using the 2020 CKD-EPI equation. Careful clinical correlation is recommended, particularly when comparing to results calculated using previous equations. The CKD-EPI equation is less accurate in patients with extremes of muscle mass, extra-renal metabolism of creatine, excessive creatine ingestion, or following therapy that affects renal tubular secretion. Performed By: #### B MP #### [address] [address] Beater Operator: Alejandro Salazar MD Glucose [Mass/Vol] 94 mg/dL Normal 74-99 [facility] Comment on above: Performed By: #### B MP #### [facility] [address] [place] [address] Beater Operator: Alejandro Salazar MD Potassium [Moles/Vol] 4.2 mmol/L Normal 3.7-5.3 [facility] Comment on above: Result Comment: Spec imen hemolysis has exceeded the interference as defined by Denise. Value may be falsely increased. Suggest recollection if clinically indicated. Performed By: #### B MP #### [facility] [address] [place] [address] Beater Operator: Alejandro Salazar MD Sodium [Moles/Vol] 140 mmol/L Normal 136-145 [facility] Comment on above: Performed By: #### B MP #### [facility] [address] [place] [address] Beater Operator: Alejandro Salazar MD Urea nitrogen [Mass/Vol] 6 mg/dL Normal 6-20 [facility] Comment on above: Performed By: #### B MP #### [facility] [address] [place] [address] Beater Operator: Alejandro Salazar MD Basic metabolic panelon 04-0 Anion gap [Moles/Vol] 12 mmol/L 9 - 16 mmol/L [facility] Calcium [Mass/Vol] 8.4 mg/dL Low 8.6 - 10. 4 mg/dL [facility] Chloride [Moles/Vol] 107 mmol/L 98 - 10 7 mmol/L [facility] CO2 [Moles/Vol] 21 mmol/L 20 - 31 mmol/L [facility] Creatinine [Mass/Vol] 0.7 mg/dL 0.6 - 0.9 mg/dL [facility] Est, Glom Filt Rate - PINF [facility] Comment on above: These results are not intended for use in patients <18 years of age. eGFR results are calculated without a race factor using the 2020 CKD-EPI equation. Careful clinical correlation is recommended, particularly when comparing to results calculated using previous equations. The CKD-EPI equation is less accurate in patients with extremes of muscle mass, extra-renal metabolism of creatine, excessive creatine ingestion, or following therapy that affects renal tubular secretion. Glucose [Mass/Vol] 94 mg/dL 74 - 99 mg/dL [facility] Interpretation and review of laboratory results Abnormal [facility] Potassium [Moles/Vol] 4.2 mmol/L 3.7 - 5.3 mmol/L [facility] Comment on above: Specimen hemolysis h as exceeded the interference as defined by Denise. Value may be falsely increased. Suggest recollection if clinically indicated. Sodium [Moles/Vol] 140 mmol/L 136 - 145 mmol/L [facility] Urea nitrogen [Mass/Vol] 6 mg/dL 6 - 20 mg/dL [facility] CBC with Auto Differentialon 01-22-2025 Basophils (Bld) [#/Vol] 0.03 10*3/uL [facility] Basophils/100 WBC (Bld) 1 % 0 - 2 % [facility] Eosinophils (Bld) [#/Vol] [facility] Eosinophils/100 WBC (Bld) 1 % 1 - 4 % [facility] Erythrocyte distribution width (RBC) [Ratio] 12.5 % 11.8 - 14.4 % [facility] Hematocrit (Bld) [Volume fraction] 36.7 % 36.3 - 47.1 % [facility] Hemoglobin (Bld) [Mass/Vol] 11.8 g/dL Low 11.9 - 15.1 g/dL [facility] Immature granulocytes (Bld) [#/Vol] [facility] Immature granulocytes/100 WBC (Bld) 0 % 0 [facility] Interpretation and review of laboratory results Abnormal [facility] Lymphocytes/100 WBC (Bld) 34 % 24 - 43 % [facility] Lymphocytes/100 WBC (Bld) 1.19 % [facility] MCH (RBC) [Entitic mass] 27.6 pg 25.2 - 33.5 pg [facility] MCHC (RBC) [Mass/Vol] 32.2 g/dL 28.4 - 34.8 g/dL [facility] MCV (RBC) [Entitic vol] 85.7 fL 82.6 - 102.9 fL [facility] Monocytes/100 WBC (Bld) 9 % 3 - 12 % [facility] Monocytes/100 WBC (Bld) 0.3 % [facility] Neutrophils/100 WBC (Bld) 55 % 36 - 65 % [facility] Nucleated RBC/100 WBC (Bld) [Ratio] 0 % 0.0 per 100 WBC [facility] Platelet mean volume (Bld) [Entitic vol] 9.1 fL 8.1 - 13.5 fL [facility] Platelets (Bld) [#/Vol] 217 10*3/uL [facility] RBC (Bld) [#/Vol] 4.28 10*6/uL 3.95 - 5.1 1 m/uL [facility] Segmented neutrophils/100 WBC (Bld) 1.96 % [facility] WBC other (Bld) [#/Vol] 3.5 [facility] CBC with Diffon 01-22-2025 Abs. Basophil 0.03 k/uL Normal 0.00-0.20 [facility] Comment on above: Performed By: #### C DP #### [facility] [address] [place] [address] Beater Operator: Alejandro Salazar MD Abs. Eosinophil <0.03 Normal 0.00-0.44 [facility] Comment on above: Performed By: #### C DP #### [facility] [address] [place], [place] [address] Beater Operator: Alejandro Salazar MD Abs.Imm.Granulocyte <0.03 Normal 0.00-0.30 [facility] Comment on above: Performed By: #### C DP #### [facility] [address] [place], [place] [address] Beater Operator: Alejandro Salazar MD Abs.Neutrophil (Seg) 1.96 k/uL Normal 1.50-8.10 [place] Comment on above: Performed By: #### C DP #### [address] [address] Beater Operator: Alejandro Salazar MD Basophils/100 WBC (Bld) 1 % Normal 0-2 [facility] Comment on above: Performed By: #### C DP #### [address] [address] Beater Operator: Alejandro Salazar MD Eosinophils/100 WBC (Bld) 1 % Normal 1-4 [facility] Comment on above: Performed By: #### C DP #### [address] [address] Beater Operator: Alejandro Salazar MD Erythrocyte distribution width (RBC) [Ratio] 12.5 % Normal 11.8-14.4 [facility] Comment on above: Performed By: #### C DP #### [address] [address] Beater Operator: Alejandro Salazar MD Hematocrit (Bld) [Volume fraction] 36.7 % Normal 36.3-47.1 [facility] Comment on above: Performed By: #### C DP #### [address] [address] Beater Operator: Alejandro Salazar MD Hemoglobin (Bld) [Mass/Vol] 11.8 g/dL Low 11.9-15.1 [facility] Comment on above: Performed By: #### C DP #### [address] [address] Beater Operator: Alejandro Salazar MD Immature granulocytes/100 WBC (Bld) 0 % Normal 0 [facility] Comment on above: Performed By: #### C DP #### [address] [address] Beater Operator: Alejandro Salazar MD Lymphocytes (Bld) [#/Vol] 1.19 10*3/uL Normal 1.10-3.70 [facility] Comment on above: Performed By: #### C DP #### [address] [address] Beater Operator: Alejandro Salazar MD Lymphocytes/100 WBC (Bld) 34 % Normal 24-43 [facility] Comment on above: Performed By: #### C DP #### [place] [address] Beater Operator: Alejandro Salazar MD MCH (RBC) [Entitic mass] 27.6 pg Normal 25.2-33.5 [facility] Comment on above: Performed By: #### C DP #### [place] [address] Beater Operator: Alejandro Salazar MD MCHC (RBC) [Mass/Vol] 32.2 g/dL Normal 28.4-34.8 [facility] Comment on above: Performed By: #### C DP #### [place] [address] Beater Operator: Alejandro Salazar MD MCV (RBC) [Entitic vol] 85.7 fL Normal 82.6-102.9 [facility] Comment on above: Performed By: #### C DP #### [address] [address] Beater Operator: Alejandro Salazar MD Monocytes (Bld) [#/Vol] 0.30 10*3/uL Normal 0.10-1.20 [facility] Comment on above: Performed By: #### C DP #### [address] [address] Beater Operator: Alejandro Salazar MD Monocytes/100 WBC (Bld) 9 % Normal 3-12 [facility] Comment on above: Performed By: #### C DP #### [address] [address] Beater Operator: Alejandro Salazar MD Neutrophil (Seg) 55 % Normal 36-65 [facility] Comment on above: Performed By: #### C DP #### [address] [address] Beater Operator: Alejandro Salazar MD NRBC Automated 0.0 per 100 WBC Normal 0.0 [facility] Comment on above: Performed By: #### C DP #### [address] [address] Beater Operator: Alejandro Salazar MD Platelet mean volume (Bld) [Entitic vol] 9.1 fL Normal 8.1-13.5 [facility] Comment on above: Performed By: #### C DP #### [address] [address] Beater Operator: Alejandro Salazar MD Platelets (Bld) [#/Vol] 217 10*3/uL Normal 138-453 [facility] Comment on above: Performed By: #### C DP #### [address] [address] Beater Operator: Alejandro Salazar MD RBC (Bld) [#/Vol] 4.28 10*6/uL Normal 3.95-5.11 [facility] Comment on above: Performed By: #### C DP #### [address] [address] Beater Operator: Alejandro Salazar MD WBC (Bld) [#/Vol] 3.5 10*3/uL Normal 3.5-11.3 [facility] Comment on above: Performed By: #### C DP #### [facility] [address] [place], [place] [id number] Beater Operator: Alejandro Salazar MD FLUORO FOR SURGICAL PROCEDUR ESon 01-22-2025 FLUORO FOR SURGICAL PROCEDURES Radiology exam is complete. No Radiologist dictation. Please follow up with ordering provider. Final result Normal [facility] Guidance-- during surgeryon 01-22-2025 Radiology exam is complete. No Radiologist dictation. Please follow up with ordering provider. [facility] RIS CONSOLIDATED Lactic Acidon 01-22-2025 Lactic Acid, Whole Blood 1 mmol/L 0.7 - 2.1 mmol/L [facility] Lactic Acid,Whole Bl 1.0 mmol/L Normal 0.7-2.1 [place] Comment on above: Performed By: #### L ACTIC #### [facility] [address] [place] [address] [id number] Beater Operator: Alejandro Salazar MD PREVIOUS SPECIMENon 01-23-20 25 [facility] Urine Cultureon 01-21-2025 Bacteria identified Cx Nom (U) ORGANISM: Escherichia coli (O:ESCCOL) [place] Count >100,000 Aerobic ANASTASIA Charge ([id number]) ---- SUSCEPTIBILITY --- ORGANISM: O:ESCCOL ANTIBIOTIC INTERPRETATION ANASTASIA Amikacin S <16 Amoxacillin/K Clavulanate S <8 Ampicillin S <8 Ampicillin/Sulbactam S <4 Aztreonam S <4 Cefazolin S <2 Cefepime S <2 Ceftazidime S <1 Ceftazidime/Avibactam S <4 Ceftolozane/Tazobacta m S <2 Ceftriaxone S <1 Cefuroxime S <4 Ciprofloxacin S <0.25 Ertapenem S <0.5 Gentamicin S <2 Levofloxacin S <0.5 Meropenem S <1 Meropenem/Vaborbactam S <2 Nitrofurantoin S <32 Piperacillin/Tazobact am S <8 Tetracycline S <4 Tigecycline S <2 Tobramycin S <2 Trimethoprim/Sulfamet hoxazole S <0.5 S = SUSCEPTIBLE I = INTERMEDIATE R = RESISTANT BLANK = DATA NOT AVAILABLE, OR DRUG NOT ADVISABLE OR TESTED R* = RESISTANCE DUE TO EXTENDED SPECTRUM BETA-LACTAMASES ESBL = EXTENDED SPECTRUM BETA-LACTAMASE TFG = THYMIDINE-DEPENDENT STRAIN TIARA = BETA-LACTAMASE POSITIVE IB = INDUCIBLE BETA-LACTAMASE. APPEARS IN PLACE OF 'S' WITH SPECIES KNOWN TO POSSESS INDUCIBLE BETA-LACTAMASES. POTENTIALLY THEY MAY BECOME RESISTANT TO ALL B-LACTAM DRUGS. PERFORMED BY: [place] [id number] PATHOLOGIST OUTDOOR LANDSCAPE ARCHITECT DAVID TIERNEY M.D. Normal [facility] Comment on above: Performed By: #### C UU #### [place] [id number] [facility] [place] VOIDING URETHROCYSTOGRAM S AND Ion 01-17-2025 [place] VOIDING URETHROCYSTOGRAM S AND I EXAMINATION: VOIDING CYSTO URETHROGRAM 01/17/2025 7:55 am COMPARISON: None. HISTORY: ORDERING SYSTEM PROVIDED HISTORY: VUR (vesicoureteric reflux) TECHNOLOGIST PROVIDED HISTORY: Is the patient ?->No Reason for Exam: frequent UTI, kidney stones FLUOROSCOPY DOSE AND TYPE: Radiation Exposure Index: DAP 184.81jKlkm1, FINDINGS: 600 mL of Cystografin was instilled in a retrograde fashion into the urinary bladder under gravity. Filling defect compatible with a Thurston catheter balloon projects over the lower urinary bladder. No additional filling defects identified in the urinary bladder. Urinary bladder otherwise has an unremarkable appearance. No vesicoureteral reflux identified during filling of the urinary bladder or during voiding. Normal appearance of the urethra. There is small postvoid residual. IMPRESSION: 1. No evidence for vesicoureteric reflux. 2. Small postvoid residual. Interpreted by: Casey Sharma MD Signed by: Casey Sharma MD 01/17/25 Final result Normal [facility] [place] VOIDING URETHROCYSTOGRAM S&Ion 01-17-2025 1. No evidence for vesicoureteric reflux. 2. Small postvoid residual. [facility] RIS CONSOLIDATED EXAMINATION: VOIDING CYSTO URETHROGRAM 01/17/2025 7:55 am COMPARISON: None. HISTORY: ORDERING SYSTEM PROVIDED HISTORY: VUR (vesicoureteric reflux) TECHNOLOGIST PROVIDED HISTORY: Is the patient ?->No Reason for Exam: frequent UTI, kidney stones FLUOROSCOPY DOSE AND TYPE: Radiation Exposure Index: DAP 184.52qXlgd2, FINDINGS: 600 mL of Cystografin was instilled in a retrograde fashion into the urinary bladder under gravity. Filling defect compatible with a Thurston catheter balloon projects over the lower urinary bladder. No additional filling defects identified in the urinary bladder. Urinary bladder otherwise has an unremarkable appearance. No vesicoureteral reflux identified during filling of the urinary bladder or during voiding. Normal appearance of the urethra. There is small postvoid residual. [facility] Casey Mcdonald MD - 01/17/2025 EXAMINATION: VOIDING CYSTO URETHROGRAM 01/17/2025 7:55 am COMPARISON: None. HISTORY: ORDERING SYSTEM PROVIDED HISTORY: VUR (vesicoureteric reflux) TECHNOLOGIST PROVIDED HISTORY: Is the patient ?->No Reason for Exam: frequent UTI, kidney stones FLUOROSCOPY DOSE AND TYPE: Radiation Exposure Index: DAP 184.45mNlyr4, FINDINGS: 600 mL of Cystografin was instilled in a retrograde fashion into the urinary bladder under gravity. Filling defect compatible with a Thurston catheter balloon projects over the lower urinary bladder. No additional filling defects identified in the urinary bladder. Urinary bladder otherwise has an unremarkable appearance. No vesicoureteral reflux identified during filling of the urinary bladder or during voiding. Normal appearance of the urethra. There is small postvoid residual. IMPRESSION: 1. No evidence for vesicoureteric reflux. 2. Small postvoid residual. [facility] Radiology Study observation (narrative) [facility] [place] VOIDING URETHROCYSTOGRAM S&IOrdered By: Casey Sharma on 01-17-2025 [facility] Work Phone: NM KIDNEY W FLOW AND FUNCTIO N W PHARMACOLOGICAL INTERVENTIONon 01-16-2025 NM KIDNEY W FLOW AND FUNCTION W PHARMACOLOGICAL INTERVENTION EXAMINATION: NM KIDNEY W FLOW AND FUNCTION W PHARMACOLOGICAL INTERVENTION HISTORY: Pyelonephritis COMPARISON: No relevant comparison available. TECHNIQUE: After IV administration of 5.0 mCi Tc-99m MAG-3, sequential renal flow images were acquired followed by sequential static images. Quantitative analysis was performed of both kidneys. Subsequently, the patient was given 3 mg Lasix IV for determination of renal washout. FINDINGS: ARTERIAL PERFUSION: Normal and symmetric. TIME TO PEAK (LEFT): 4.5 minutes (Normal-less than five minutes). TIME TO PEAK (RIGHT): 4.5 minutes (Normal-less than five minutes). PERCENT UPTAKE: Left 37 % : Right 63 % T 1/2 POST-LASIX (LEFT): 4 minutes. T 1/2 POST-LASIX (RIGHT): 4 minutes. (Normal < 10 min, equivocal 10-20 min, abnormal > 20 min.). BLADDER: Normal. OTHER: Planar imaging demonstrates some mild asymmetric activity in the right renal collecting system. IMPRESSION: Asymmetric activity with 37% on the right, 63% of the left Normal bilateral time to peak and post Lasix washout Interpreted by: Glen Perez MD Signed by: Glen Perez MD 01/16/25 Final result Normal [facility] Urine Cultureon 12-02-2024 Bacteria identified Cx Nom (U) 30,000 colonies/ml mixed bacterial skin contaminants 2 Days PERFORMED BY: [place] [address] PATHOLOGIST OUTDOOR LANDSCAPE ARCHITECT DAVID TIERNEY M.D. Normal [facility] Comment on above: Performed By: #### C UU #### [address] Urine cultureOrdered By: Vicente Snyder on 12-02-2024 Bacteria identified Cx Nom (U) Urine culture [facility] Cholesterol [Mass/volume] in Serum or PlasmaOrdered By: Arnulfo Aviles on 04-09-2024 Cholesterol [Mass/Vol] 150 mg/dL Normal 140-200 [facility] Comment on above: Chol less than 200 m g/dl low riskChol 201-239 mg/dl borderline riskChol 240 mg/dl and greater high risk Result Comment: Chol less than 200 mg/dl low risk Chol 201-239 mg/dl borderline risk Chol 240 mg/dl and greater high risk Performed By: #### L IPID, TSH3 [id number], [id number] #### [facility] [address] [place] [id number] [facility] Cholesterol in LDL Calc [Mas s/Vol]Ordered By: Arnulfo Aviles on 04-09-2024 Cholesterol in LDL [Mass/Vol] 90 mg/dL 0-100 [facility] Comment on above: LDL ATP III CLASSIFI CATIONLDL less than 100 mg/dL OptimalLDL 100-129 mg/dL Near or above optimalLDL 130-159 mg/dL Borderline highLDL 160-189 mg/dL HighLDL greater than 189 mg/dL Very high Cholesterol in VLDL Calc [Ma ss/Vol]Ordered By: Arnulfo Aviles on 04-09-2024 Cholesterol in VLDL [Mass/Vol] 16 mg/dL [facility] ECG 12 lead ECGon 04-09-2024 ECG 12 lead ECG [facility] [place] [address] [place] [address] Electrocardiograph Report Signed Patient: Diana Barriga MR#: [id number] 55 : 1990 Acct:[id number] Age/Sex: 33 / F ADM Date: 04/08/24 Loc: Room: [address] [place] [address] Type: ADM IN Attending Dr: Arnulfo Aviles [...] No previous ECGs available Confirmed by NONA ARRIAGA MD, FACC ([id number]) on 04/09/2024 3:21:42 PM Referred By: Electronically Signed By:NONA ARRIAGA MD, FACC Transcribed By: MUS Signed By Lg Arriaga MD 04/09/24 1521 Normal [facility] Lipid Panelon 04-09-2024 LDL Cholesterol,Calculate d 90 mg/dL Normal 0-100 [facility] Comment on above: Result Comment: LDL ATP III CLASSIFICATION LDL less than 100 mg/dL Optimal LDL 100-129 mg/dL Near or above optimal LDL 130-159 mg/dL Borderline high LDL 160-189 mg/dL High LDL greater than 189 mg/dL Very high Performed By: #### L IPID, [id number], [id number] #### [facility] [address] Triglyceride w/Reflex 82 mg/dL Normal 0-149 [facility] Comment on above: Result Comment: TRIG ATP III CLASSIFICATION TRIG less than 150 mg/dL Normal TRIG 150-199 mg/dL Borderline high TRIG 200-500 mg/dL High TRIG greater than 500 mg/dL Very high Standard traceable to the Center for Disease Conrtrol and Prevention (CDC) test method. Performed By: #### L IPID, TSH3 wRFLX, [id number] #### [address] VLDL CHOLESTEROL 16 mg/dL Normal [facility] Comment on above: Performed By: #### L IPID, TSH3 wRFLX, [id number] #### [address] Serum or plasma high density lipoprotein (HDL) cholesterol measurementOrdered By: Arnulfo Aviles on 04-09-2024 Cholesterol in HDL [Mass/Vol] 44 mg/dL Normal 23-92 [facility] Comment on above: HDL CHOL ATP-III CLA SSIFICATION Cardiovascular RiskHDL > or equal to 60 mg/dL LOWHDL < 40 mg/dL HIGH Result Comment: HDL CHOL ATP-III CLASSIFICATION Cardiovascular Risk HDL > or equal to 60 mg/dL LOW HDL < 40 mg/dL HIGH Performed By: #### L IPID, TSH3 wRFLX, [id number] #### [address] Serum or plasma total choles terol/high density lipoprotein (HDL) cholesterol mass ratOrdered By: Arnulfo Aviles on 04-09-2024 Cholesterol.total/Cho lesterol in HDL [Mass ratio] 3.4 {ratio} Normal <5.0 [facility] Comment on above: Performed By: #### L IPID, TSH3 wRFLX, [id number] #### [facility] [address] Thyroid Stim Hormone w/Rflxo n 04-09-2024 Thyroid Stim Hormone w/Rflx 2.01 u[iU]/mL Normal 0.45-5.33 [facility] Comment on above: Performed By: #### L IPID, TSH3 wRFLX, [id number] #### [facility] [address] [place] [address] Thyrotropin [Units/volume] i n Serum or PlasmaOrdered By: Arnulfo Aviles on 04-09-2024 TSH Qn 2.01 m[IU]/L 0.45-5.33 [facility] Triglyceride [Mass/volume] i n Serum or PlasmaOrdered By: Arnulfo Aviles on 04-09-2024 Triglyceride [Mass/Vol] 82 mg/dL 0-149 [facility] Comment on above: TRIG ATP III CLASSIF ICATIONTRIG less than 150 mg/dL NormalTRIG 150-199 mg/dL Borderline highTRIG 200-500 mg/dL High TRIG greater than 500 mg/dL Very highStandard traceable to the Center for Disease Conrtrol and Prevention (CDC) test method. Vitamin D 25 Hydroxy Totalon 04-09-2024 Vitamin D 25 Hydroxy Total 26.2 ng/mL Low 30-100 [facility] Comment on above: Result Comment: THA MIN D STATUS 25(OH)VITAMIN D RANGE (ng/mL) Deficient <20 Insufficient 20 to <30 Sufficient 30 to 100 Reference: José Miguel MF,Jennifer NC, Anahi-Gaetano MARTI, et al. Evaluation,treatment, and prevention of vitamin D deficiency; an Endocrine Society clinical practice guideline. JCEM. 2010; 96(7):1911-30. PERFORMED BY: [place] [address] PATHOLOGIST OUTDOOR [employer]CH[employer]ECT AB ALCANTARA M.D. Performed By: #### L IPID, TSH3 wRFLX, [id number] #### [facility] [address] [id number] [facility] Vitamin D+Metabolites [Mass/ volume] in Serum or PlasmaOrdered By: Arnulfo Aviles on 04-09-2024 Vitamin D+Metabolites [Mass/Vol] 26.2 ng/mL 30-100 [facility] Comment on above: VITAMIN D STATUS 25( [place])VITAMIN D RANGE (ng/mL) Deficient <20 Insufficient 20 to <30Sufficient 30 to 100Reference: José Miguel MF,Jennifer RIOS, Mady MARTI, et al. Evaluation,treatment, and prevention of vitamin D deficiency; an Endocrine Society clinical practice guideline. JCEM. 2010; 96(7):1911-30. Patient Letter FTon 2023 Patient Letter [facility] December 04, [address] [id number] : 1990 Dear Diana, You missed your scheduled appointment on: 12/04/[address] Nona Raygoza. Please note our appointment slots fill quickly. [...] [facility] [address], [place] [address] [facility] Lab Reportson 06-05-2023 Lab Reports [id number]#1 .00CD:127 [facility] Reminderson 04-24-2023 Reminders - From: Whitney Collier To: [facility] - Results; Sent: 03/20/2023 12:53:35 EDT Show up: 04/17/2023 12:52:00 EDT Subject: Electrolyte panel Due Date/Time: 04/17/2023 12:52:00 EDT Pt should be getting electrolyte panel April 17 after starting HCTZ. Also has hx of low K but recent level was wnl. Please check for these results and once they are in, call the pt with the results. duplicate message [facility] Operative Reporton Operative Report [id number]#1. 00CD:127 [facility] RAD - MISCon 04-10-2023 RAD - MISC [id number]#1 .00CD:127 [facility] 04-06-2023 Lab Reports [id number]#1 .00CD:127 [facility] Lab Reports [id number]#1 .00CD:127 [facility] 03-23-2023 Lab Reports [id number]#1 .00CD:127 [facility] Lab Reports [id number]#1 .00CD:127 [facility] Lab Reports [id number]#1 .00CD:127 [facility] RAD - CT Reporton 03-23-2023 RAD - CT Report [id number]#1 .00CD:127 [facility] RAD - CT Report [id number] .00CD:127 [facility] Ambulatory Visit Summaryon 0 03-20-2023 Ambulatory Visit Summary DIANA BARRIGA :1990 Visit Date:03/20/2023 Ambulatory Visit Instructions Your Diagnosis Kidney stone Hypercalciuria History of kidney stones Hyperoxaluria Your Care Team Attending Physician - Nona RAYGOZA MD Primary Care Physician - Domingo Snyder MD This Is Your Medications List Contact [...] When: Where: [facility] [address], [place] [address]- Medications What When Instructions Unchanged olanzapine-samidorpha n [...] handful of b (more content not included)... [facility] Consent for Procedure/Surger yon 03-20-2023 Consent for Procedure/Surgery [id number]#1 .00CD:127 [facility] Patient Educationon 03-20-20 23 Patient Education Nephrology [...] Spinach (cooked), rhubarb, beets, sweet potatoes, and Indonesian chard. ? Peanuts. ? Potato chips, montserratian fries, and baked potatoes with skin on. ? Nuts and nut products. ? Chocolate. ? If you regularly take a diuretic medicine, make sure to eat at least 1 or 2 servings of fruits or vegetables that are high in potassium each day. These include: ? Avocado. ? Banana. ? [place], prune, carrot, or tomato juice. ? Baked [...] fish oil, or vitamin B6. ? Take ksum-ibi-bpttbxe and prescription medicines only as told by your health care provider. These include supplements. What foods should I limit? Limit your in (more content not included)... Normal [facility] Urology Office/Clinic Noteon 03-20-2023 Urology Office/Clinic Note [...] Lt kidney pain. Did got to [facility]. DX'd & treated for UTI. (NEG [...] L. Ox slightly elevated. Pt presented to [facility] ER on 03/06/23 due to L [...] mg qd. SEs discussed. Rx sent to [facility]. -Electrolyte panel 4 weeks to the day [...] Nona Turner, URL [facility] [address] [place] [address]- Additional Instructions: schedule R ESWL Patient Education I, Whitney Collier, personally scribed for Dr. Raygoza on 03/20/2023 11:28:22. . Documentation recorded by the scribe, Whitney Collier, accurately reflects the services(s) I performed and decisions made by me. Authenticated by Dr. Raygoza on 03/20/2023 11:30:43. Problem List/Past Medical History Ongoing Bipolar disorder BMI 33.0-33.9,adult Dysuria Feeling of incomplete bladder emptying Flank pain Frequency of urination History of kidney s (more content not included)... Normal [facility] Comment on above: Result Comment: Elec tronically Signed By: IDALMIS BORDEN, Nona Turner\.br\Date and Time Signed: 03/20/23 11:30 EDT\.br\Electronically Co-Signed By: Whitney Collier\.br\Date and Time Co-Signed: 03/20/23 11:28 EDT CBC AUTO DIFFon 02-16-2023 BASO # 0.1 103/ul Normal 0.0-0.1 [facility] Comment on above: Performed By: #### U KJ 24 #### [facility] [address] [place] [address] Dr. Ramses Dumas Basophils/100 WBC (Bld) 0.5 % Normal 0.2-2.0 [facility] Comment on above: Performed By: #### U KJ 24 #### [facility] [address] [place] [address] Dr. Ramses Dumas EO # 0.0 103/ul Normal 0.0-0.7 [facility] Comment on above: Performed By: #### U KJ 24 #### [facility] [address] [place] [address] Dr. Ramses Dumas Eosinophils/100 WBC (Bld) 0.4 % Critically low 0.9-7.0 [facility] Comment on above: Performed By: #### U KJ 24 #### [facility] [address] [place] [address] Dr. Ramses Dumas Erythrocyte distribution width (RBC) [Ratio] 13.7 % Normal 11.0-15.0 [facility] Comment on above: Performed By: #### U KJ 24 #### [facility] [address] [place] [address] Dr. Ramses Dumas Hematocrit (Bld) [Volume fraction] 45.1 % Normal 36.0-48.0 [facility] Comment on above: Performed By: #### U KJ 24 #### [facility] [address] [place] [address] Dr. Ramses Dumas Hemoglobin (Bld) [Mass/Vol] 14.3 g/dL Normal 12.0-16.0 [facility] Comment on above: Performed By: #### U KJ 24 #### [facility] [address] [place] [address] Dr. Ramses Dumas IG # 0.02 10e3/ul Normal 0.00-0.03 [facility] Comment on above: Performed By: #### U KJ 24 #### [facility] [address] [place] [address] Dr. Ramses Dumas IG % 0.2 % Normal 0.0-0.5 [facility] Comment on above: Performed By: #### U KJ 24 #### [facility] [address] [place] [address] Dr. Ramses Dumas LYMPH # 2.5 103/ul Normal 1.2-3.8 [facility] Comment on above: Performed By: #### U KJ 24 #### [facility] [address] [place] [address] Dr. Ramses Dumas Lymphocytes/100 WBC (Bld) 26.4 % Normal 20.5-60.0 [facility] Comment on above: Performed By: #### U KJ 24 #### [facility] [address] [place] [address] Dr. Ramses Dumas MANUAL DIFF REQ NO Normal [facility] Comment on above: Performed By: #### U KJ 24 #### [facility] [address] [place] [address] Dr. Ramses Dumas MCH (RBC) [Entitic mass] 25.6 pg Critically low 26.7-34.0 [facility] Comment on above: Performed By: #### U KJ 24 #### [facility] [address] [address] [address] Ramses Dumas MCHC (RBC) [Mass/Vol] 31.7 g/dL Normal 29.9-35.2 [facility] Comment on above: Performed By: #### U KJ 24 #### [facility] [address] [place] [address] Dr. Ramses Dumas MCV (RBC) [Entitic vol] 80.7 fL Critically low 81.0-99.0 [facility] Comment on above: Performed By: #### U KJ 24 #### [facility] [address] [place] [address] Dr. Ramses Dumas MONO # 0.7 103/ul Normal 0.3-0.8 [facility] Comment on above: Performed By: #### U KJ 24 #### [facility] [address] [place] [address] Dr. Ramses Dumas Monocytes/100 WBC (Bld) 7.6 % Normal 1.7-12.0 [facility] Comment on above: Performed By: #### U KJ 24 #### [facility] [address] [place] [address] Dr. Ramses Dumas NEUT # 6.1 103/ul Normal 1.4-6.5 [facility] Comment on above: Performed By: #### U KJ 24 #### [facility] [address] [place] [address] Dr. Ramses Dumas Neutrophils/100 WBC (Bld) 64.9 % Normal 43.0-75.0 [facility] Comment on above: Performed By: #### U KJ 24 #### [facility] [address] [place] [address] Dr. Ramses Dumas Platelet mean volume (Bld) [Entitic vol] 11.0 fL Normal 9.5-13.5 [facility] Comment on above: Performed By: #### U KJ 24 #### [facility] [address] [place] [address] Dr. Ramses Dumas PLT 270 103/ul Normal 150-450 [facility] Comment on above: Performed By: #### U KJ 24 #### [facility] [address] [place], [place] [address] Dr. Ramses Dumas RBC 5.59 106/ul Critically high 4.20-5.40 [facility] Comment on above: Performed By: #### U KJ 24 #### [facility] [address] [place], [place] [address] Dr. Ramses Dumas WBC 9.4 103/ul Normal 4.0-11.0 [facility] Comment on above: Performed By: #### U KJ 24 #### [facility] [address] [place], [place] [address] ABD/PELV W CONon [...] FARTUN NOVOA Date: 2023-02-16 18:21 Normal [facility] URINE PROFILEon 3 Bilirubin Ql (U) SMALL Abnormal NEGATIVE [facility] Comment on above: Performed By: #### C MP #### [facility] [address] [place] [address] Dr. Ramses Dumas Clarity (U) CLEAR Normal CLEAR [facility] Comment on above: Performed By: #### C MP #### [facility] [address] [address] [address] Ramses Dumas Color (U) YELLOW Normal YELLOW [facility] Comment on above: Performed By: #### C MP #### [facility] [address] [place] [address] Dr. Ramses Dumas ERUCARLOS ENRIQUE A micrscopic examination will be performed if indicated. Normal [facility] Comment on above: Performed By: #### C MP #### [facility] [address] [address] [address] Ramses Dumas Glucose Ql (U) Negative Normal NEGATIVE [facility] Comment on above: Performed By: #### C MP #### [facility] [address] [address] [address] Ramses Dumas Hemoglobin Ql (U) Negative Normal NEGATIVE [facility] Comment on above: Performed By: #### C MP #### [facility] [address] [address] [address] Ramses Dumas Ketones Ql (U) 40 mg/dl Abnormal NEGATIVE [facility] Comment on above: Performed By: #### C MP #### [facility] [address] [place] [address] Dr. Ramses Dumas LEUKOCYTES SMALL Abnormal NEGATIVE [facility] Comment on above: Performed By: #### C MP #### [facility] [address] [place] [address] Dr. Ramses Dumas Nitrite Ql (U) Negative Normal NEGATIVE [facility] Comment on above: Performed By: #### C MP #### [facility] [address] [place] [address] Dr. Ramses Dumas pH (U) 7.0 [pH] Normal 5-9 [facility] Comment on above: Performed By: #### C MP #### [facility] [address] [place] [address] Dr. Ramses Dumas Protein (U) [Mass/Vol] 30 mg/dL Abnormal NEGATIVE/ TRACE [facility] Comment on above: Performed By: #### C MP #### [facility] [address] [place] [address] Dr. Ramses Dumas SPEC GRAVITY 1.020 Normal 1.005-<=1.02 5 [facility] Comment on above: Performed By: #### C MP #### [facility] [address] [place] [address] Dr. Ramses Dumas UR MICRO IND INDICATED Normal [facility] Comment on above: Performed By: #### C MP #### [facility] [address] [place] [address] Dr. Ramses Dumas Urobilinogen Qn (U) 4 {Lucero'U}/dL Abnormal 0.2 - 1.0 [facility] Comment on above: Performed By: #### C MP #### [facility] [address] [place] [address] Dr. Ramses Dumas LIPASEon 02-16-2023 Lipase [Catalytic activity/Vol] 67.0 U/L Critically low 73.0-393.0 [facility] Comment on above: Performed By: #### U RCX #### [facility] [address] [place] [address] Dr. Ramses Dumas LIVER PROFILEon 02-16-2023 Albumin [Mass/Vol] 4.1 g/dL Normal 3.4-5.[address] [facility] Comment on above: Performed By: #### U RCX #### [facility] [address] [place] [address] Dr. Ramses Dumas Albumin/Globulin [Mass ratio] 1.0 {ratio} Normal [facility] Comment on above: Performed By: #### U RCX #### [facility] [address] [place] [address] Dr. Ramses Dumas ALP [Catalytic activity/Vol] 85 U/L Normal 46-116 [facility] Comment on above: Performed By: #### U RCX #### [facility] [address] [address] [address] Ramses Dumas ALT [Catalytic activity/Vol] 61 U/L Critically high 14-59 [facility] Comment on above: Performed By: #### U RCX #### [facility] [address] [address] [address] Ramses Dumas AST [Catalytic activity/Vol] 43 U/L Critically high 15-37 [facility] Comment on above: Performed By: #### U RCX #### [facility] [address] [place] [address] Dr. Ramses Dumas BILI, CONJUGATED 0.1 mg/dL Normal 0.0-0.2 [facility] Comment on above: Performed By: #### U RCX #### [facility] [address] [address] [address] Ramses Dumas Bilirubin [Mass/Vol] 0.7 mg/dL Normal 0.2-1.0 [facility] Comment on above: Performed By: #### U RCX #### [facility] [address] [place] [address] Dr. Ramses Dumas Globulin (S) [Mass/Vol] 4.2 g/dL Normal [facility] Comment on above: Performed By: #### U RCX #### [facility] [address] [address] [address] Ramses Dumas Protein [Mass/Vol] 8.3 g/dL Critically high 6.4-8.[address] [facility] Comment on above: Performed By: #### U RCX #### [facility] [address] [address] [address] Ramses Dumas URon 02-16-2023 , QUAL Negative Normal NEGATIVE [facility] Comment on above: Performed By: #### C MP #### [facility] [address] [place] [address] Dr. Ramses Dumas PROF CHEM 8 (BAS METB)on Anion gap [Moles/Vol] 14.2 mmol/L Normal [facility] Comment on above: Performed By: #### U RCX #### [facility] [address] [place] [address] Dr. Ramses Dumas Calcium [Mass/Vol] 9.5 mg/dL Normal 8.5-10.[address] [facility] Comment on above: Performed By: #### U RCX #### [facility] [address] [place] [address] Dr. Ramses Dumas Chloride [Moles/Vol] 102 mmol/L Normal 98-107 [facility] Comment on above: Performed By: #### U RCX #### [facility] [address] [place] [address] Dr. Ramses Dumas CO2 [Moles/Vol] 27.5 mmol/L Normal 21.0-32.0 [facility] Comment on above: Performed By: #### U RCX #### [facility] [address] [place] [address] Dr. Ramses Dumas Creatinine [Mass/Vol] 0.71 mg/dL Normal 0.55-1.02 [facility] Comment on above: Performed By: #### U RCX #### [facility] [address] [place] [address] Dr. Ramses Dumas EGFR-AF INDONESIAN >60 Normal >=60 [facility] Comment on above: Performed By: #### U RCX #### [facility] [address] [place] [address] Dr. Ramses Dumas EGFR-NON AF INDONESIAN >60 Normal >=60 [facility] Comment on above: Performed By: #### U RCX #### [facility] [address] [place] [address] Dr. Ramses Dumas Glucose [Mass/Vol] 90 mg/dL Normal 74-106 [facility] Comment on above: Performed By: #### U RCX #### [facility] [address] [place] [address] Dr. Ramses Dumas Potassium [Moles/Vol] 3.7 mmol/L Normal 3.5-5.1 [facility] Comment on above: Performed By: #### U RCX #### [facility] [address] [place] [address] Dr. Ramses Dumas Sodium [Moles/Vol] 140 mmol/L Normal 136-145 [facility] Comment on above: Performed By: #### U RCX #### [facility] [address] [place] [address] Dr. Ramses Dumas Urea nitrogen [Mass/Vol] 6.0 mg/dL Critically low 7.0-18.0 [facility] Comment on above: Performed By: #### U RCX #### [facility] [address] [place] [address] Dr. Ramses Dumas Urea nitrogen/Creatinine [Mass ratio] 8.5 mg/mg Normal [facility] Comment on above: Performed By: #### U RCX #### [facility] [address] [place] [address] Dr. Ramses Dumas URINE MICROSCOPIC ONLYon BACTERIA NONE SEEN Normal NONE SEEN [facility] Comment on above: Performed By: #### U KJ 24 #### [facility] [address] [place] [address] Dr. Ramses Dumas Bacteria identified Cx Nom (U) NOT INDICATED Normal [facility] Comment on above: Performed By: #### U KJ 24 #### [facility] [address] [place] [address] Dr. Ramses Dumas CAST NONE SEEN Normal NONE SEEN [facility] Comment on above: Performed By: #### U KJ 24 #### [facility] [address] [place] [address] Dr. Ramses Dumas Crystals LM Nom (Urine sed) NONE SEEN Normal NONE SEEN [facility] Comment on above: Performed By: #### U KJ 24 #### [facility] [address] [place] [address] Dr. Ramses Dumas Epithelial cells LM Ql (Urine sed) FEW Abnormal NONE SEEN /RARE [facility] Comment on above: Performed By: #### U KJ 24 #### [facility] [address] [address] [address] Ramses Dumas MUCOUS SMALL Abnormal NONE SEEN [facility] Comment on above: Performed By: #### U KJ 24 #### [facility] [address] [place] [address] Dr. Ramses Dumas RBC NONE SEEN Abnormal 0-2 [facility] Comment on above: Performed By: #### U KJ 24 #### [facility] [address] [place] [address] Dr. Ramses Dumas WBC 0-2 Abnormal NONE SEEN [facility] Comment on above: Performed By: #### U KJ 24 #### [facility] [address] [place] [address] Dr. Ramses Dumas PAP ACOG PANEL 2: 30 to 65on 02-10-2023 . . Normal [facility] Comment on above: Result Comment: Perf ormed at: WB Performed By: #### U RCX #### [facility] [address] [place] [address] Dr. Ramses Dumas Age Gdln ACOG Testing 30-65 Normal [facility] Comment on above: Performed By: #### U RCX #### [facility] [address] [place] [address] Dr. Ramses Dumas DIAGNOSIS: Comment Normal [facility] Comment on above: Result Comment: NEGA TIVE FOR INTRAEPITHELIAL LESION OR MALIGNANCY. REACTIVE CELLULAR CHANGES AND/OR REPAIR ARE PRESENT. Performed at: WB Performed By: #### U RCX #### [facility] [address] [place] [address] Dr. Ramses Dumas Electronically signed by: Comment Normal [facility] Comment on above: Result Comment: Chelsey Boston MD, Pathologist Performed at: WB Performed By: #### U RCX #### [facility] [address] [place] [address] Dr. Ramses Dumas HPV Aptima Negative Normal Negative [facility] Comment on above: Result Comment: This nucleic acid amplification test detects fourteen high-risk HPV types (16,18,31,33,35,39,45,51,52,56,58,59,66,68) without differentiation. Performed at: =G Performed By: #### U RCX #### [facility] [address] [place] [address] Dr. Ramses Dumas HPV Genotype Reflex Comment Normal [facility] Comment on above: Result Comment: Crit erli not met, HPV Genotype not performed. Performed at: WB Performed By: #### U RCX #### [facility] [address] [place] [address] Dr. Ramses Dumas Methodology: Comment Normal [facility] Comment on above: Result Comment: This liquid based ThinPrep(R) pap test was screened with the use of an image guided system. Performed at: WB Performed By: #### U RCX #### [facility] [address] [place] [address] Dr. Ramses Dumas Note: Comment [facility] Comment on above: Result Comment: The [...] WB Performed By: #### U RCX #### [facility] [address] [place] [address] Dr. Ramses Dumas Performed by: Comment Normal [facility] Comment on above: Result Comment: Cuca Briceno, Reconciliation Coordinator (ASCP) Performed at: WB Performed By: #### U RCX #### [facility] [address] [place] [address] Dr. Ramses Dumas Specimen adequacy: Comment Normal [facility] Comment on above: Result Comment: Sati sfactory for evaluation. Endocervical and/or squamous metaplastic cells (endocervical component) are present. Performed at: WB Performed By: #### U RCX #### [facility] [address] [place] [address] Dr. Ramses Dumas Lab Reportson 12-29-2022 Lab Reports [id number] .00CD:127 Normal [facility] RAD - MISCon 12-21-2022 RAD - MISC [id number] .00CD:127 Normal [facility] OXALATE 24HR URINEon 023 Oxalates, Urine 44 mg/L Normal Undefined [facility] Comment on above: Performed By: #### U KJ 24 #### [facility] [address] [place] [address] Dr. Ramses Dumas Oxalates, Urine 24hr 44 mg/24 hr Critically high 4-31 [facility] Comment on above: Performed By: #### U KJ 24 #### [facility] [address] [place] [address] Dr. Ramses Dumas CITRATE URINE 24HRon 023 Citric Acid, U, 24hr 658 mg/24 hr Normal 320-1240 [facility] Comment on above: Result Comment: This test was developed and its performance characteristics determined by [employer]. It has not been cleared or approved by the Food and Drug Administration. Performed By: #### C ITRATU #### [facility] [address] [address] [address] Ramses Dumas Citric Acid, Urine 658 mg/L Normal Undefined [facility] Comment on above: Performed By: #### C ITRATU #### [facility] [address] [place] [address] Dr. Ramses Dumas MAGNESIUM 24HR URINEon 12-17 Magnesium 24hr Urine 119.0 mg/24 hr Normal 12.0-293.0 [facility] Comment on above: Performed By: #### U RCX #### [facility] [address] [place] [address] Dr. Ramses Dumas Magnesium UR 11.9 mg/dL Normal Not Estab. [facility] Comment on above: Performed By: #### U RCX #### [facility] [address] [place] [address] Dr. Ramses Dumas PHOSPHORUS 24HR URINEon Phosphorus, Urine 81.4 mg/dL Normal Not Estab. [facility] Comment on above: Performed By: #### B LDCX2 #### [facility] [address] [place] [address] Dr. Ramses Dumas Phosphorus, Urine 24hr 814 mg/24 hr Normal 261-1078 [facility] Comment on above: Performed By: #### B LDCX2 #### [facility] [address] [place] [address] Dr. Ramses Dumas PTH INTACTon 12-17-2022 PTH, Intact 46 pg/mL Normal 15-65 [facility] Comment on above: Performed By: #### U RCX #### [facility] [address] [place] [address] Dr. Ramses Dumas URIC ACID 24 HR URINEon Uric Acid, Urine 69.9 mg/dL Normal Not Estab. [facility] Comment on above: Performed By: #### U KJ 24 #### [facility] [address] [place] [address] Dr. Ramses Dumas Uric Acid, Urine 24hr 699.0 mg/24 hr Normal 173.7-902. 1 [facility] Comment on above: Performed By: #### U KJ 24 #### [facility] [address] [place] [address] Dr. Ramses Dumas BUNon 12-16-2022 Urea nitrogen [Mass/Vol] 7.0 mg/dL Normal 7.0-18.0 [facility] Comment on above: Performed By: #### C BC #### [facility] [address] [place] [address] Dr. Ramses Dumas CALCIUMon 12-16-2022 Calcium [Mass/Vol] 8.8 mg/dL Normal 8.5-10.[address] [facility] Comment on above: Performed By: #### C BC #### [facility] [address] [place] [address] Dr. Ramses Dumas CALCIUM 24 HR URINEon 2022 CALC, 24 HR UR 295.0 mg/24 hr Normal 100.0-300.0 [facility] Comment on above: Performed By: #### B LDCX2 #### [facility] [address] [place] [address] Dr. Ramses Dumas UR CALCIUM 29.5 mg/dL Critically high 5.1-21.[address] [facility] Comment on above: Performed By: #### B LDCX2 #### [facility] [address] [place] [address] Dr. Ramses Dumas CHLORIDEon 12-16-2022 Chloride [Moles/Vol] 105 mmol/L Normal 98-107 [facility] Comment on above: Performed By: #### C BC #### [facility] [address] [place] [address] Dr. Ramses Dumas CO2on 12-16-2022 CO2 [Moles/Vol] 26.4 mmol/L Normal 21.0-32.0 [facility] Comment on above: Performed By: #### C MP #### [facility] [address] [place] [address] Dr. Ramses Dumas CREA 24 HR URINEon 3 CREA, 24 HR UR 2337.30 mg/24 hr Critically high 800.00 -1,800 .00 [facility] Comment on above: Performed By: #### C VDTBH #### [facility] [address] [place] [address] Dr. Ramses Dumas URINE CREAT 233.73 mg/dL Normal 20.00-300.[address] [facility] Comment on above: Performed By: #### C VDTBH #### [facility] [address] [place] [address] Dr. Ramses Dumas CREATININEon 12-16-2022 Creatinine [Mass/Vol] 0.70 mg/dL Normal 0.55-1.02 [facility] Comment on above: Performed By: #### C MP #### [facility] [address] [place] [address] Dr. Ramses Dumas EGFR-AF INDONESIAN >60 Normal >=60 [facility] Comment on above: Performed By: #### C MP #### [facility] [address] [place] [address] Dr. Ramses Dumas EGFR-NON AF INDONESIAN >60 Normal >=60 [facility] Comment on above: Performed By: #### C MP #### [facility] [address] [place] [address] Dr. Ramses Dumas NAon 12-16-2022 Sodium [Moles/Vol] 139 mmol/L Normal 136-[address] [facility] Comment on above: Performed By: #### C MP #### [facility] [address] [place] [address] Dr. Ramses Dumas POTASSIUMon 12-16-2022 Potassium [Moles/Vol] 4.0 mmol/L Normal 3.5-5.1 [facility] Comment on above: Performed By: #### C MP #### [facility] [address] [place] [address] Dr. Ramses Dumas SODIUM 24 HR URINEon 023 NA, 24 HR UR 193 mmol/24 hr Normal 40-220 [facility] Comment on above: Performed By: #### C VDTBH #### [facility] [address] [place] [address] Dr. Ramses Dumas Sodium (U) [Moles/Vol] 193 mmol/L Critically high 30-90 [facility] Comment on above: Performed By: #### C VDTBH #### [facility] [address] [place] [address] Dr. Ramses Dumas UR TOT VOL 1000 ml/24 HR Normal [facility] Comment on above: Performed By: #### C VDTBH #### [facility] [address] [place] [address] Dr. Ramses Dumas Performed By: #### B LDCX2 #### [facility] [address] [place] [address] Dr. Ramses Dumas URIC ACID SERUMon 12-16-2022 Urate [Mass/Vol] 5.6 mg/dL Normal 2.6-6.0 [facility] Comment on above: Performed By: #### C MP #### [facility] [address] [place] [address] Dr. Ramses Dumas XR KUB 1 VIEWon [...] JENNIFER GATES Date: 2022-12-15 08:26 Normal [facility] CBC AUTO DIFFon 11-07-2022 BASO # 0.0 103/ul Normal 0.0-0.1 [facility] Comment on above: Performed By: #### U RCX #### [facility] [address] [place] [address] Dr. Ramses Dumas Basophils/100 WBC (Bld) 0.7 % Normal 0.2-2.0 [facility] Comment on above: Performed By: #### U RCX #### [facility] [address] [place] [address] Dr. Ramses Dumas EO # 0.1 103/ul Normal 0.0-0.7 [facility] Comment on above: Performed By: #### U RCX #### [facility] [address] [place] [address] Dr. Ramses Dumas Eosinophils/100 WBC (Bld) 1.9 % Normal 0.9-7.0 [facility] Comment on above: Performed By: #### U RCX #### [facility] [address] [place] [address] Dr. Ramses Dumas Erythrocyte distribution width (RBC) [Ratio] 13.6 % Normal 11.0-15.0 [facility] Comment on above: Performed By: #### U RCX #### [facility] [address] [place] [address] Dr. Ramses Dumas Hematocrit (Bld) [Volume fraction] 37.3 % Normal 36.0-48.0 [facility] Comment on above: Performed By: #### U RCX #### [facility] [address] [place] [address] Dr. Ramses Dumas Hemoglobin (Bld) [Mass/Vol] 12.2 g/dL Normal 12.0-16.0 [facility] Comment on above: Performed By: #### U RCX #### [facility] [address] [place] [address] Dr. Ramses Dumas IG # 0.02 10e3/ul Normal 0.00-0.03 [facility] Comment on above: Performed By: #### U RCX #### [facility] [address] [place] [address] Dr. Ramses Dumas IG % 0.3 % Normal 0.0-0.5 [facility] Comment on above: Performed By: #### U RCX #### [facility] [address] [place] [address] Dr. Ramses Dumas LYMPH # 2.3 103/ul Normal 1.2-3.8 [facility] Comment on above: Performed By: #### U RCX #### [facility] [address] [place] [address] Dr. Ramses Dumas Lymphocytes/100 WBC (Bld) 39.6 % Normal 20.5-60.0 [facility] Comment on above: Performed By: #### U RCX #### [facility] [address] [place] [address] Dr. Ramses Dumas MANUAL DIFF REQ NO Normal [facility] Comment on above: Performed By: #### U RCX #### [facility] [address] [place] [address] Dr. Ramses Dumas MCH (RBC) [Entitic mass] 26.4 pg Critically low 26.7-34.0 [facility] Comment on above: Performed By: #### U RCX #### [facility] [address] [place] [address] Dr. Ramses Dumas MCHC (RBC) [Mass/Vol] 32.7 g/dL Normal 29.9-35.2 [facility] Comment on above: Performed By: #### U RCX #### [facility] [address] [address] [address] Ramses Dumas MCV (RBC) [Entitic vol] 80.7 fL Critically low 81.0-99.0 [facility] Comment on above: Performed By: #### U RCX #### [facility] [address] [address] [address] Ramses Dumas MONO # 0.5 103/ul Normal 0.3-0.8 [facility] Comment on above: Performed By: #### U RCX #### [facility] [address] [place] [address] Dr. Ramses Dumas Monocytes/100 WBC (Bld) 8.0 % Normal 1.7-12.0 [facility] Comment on above: Performed By: #### U RCX #### [facility] [address] [place] [address] Dr. Ramses Dumas NEUT # 2.9 103/ul Normal 1.4-6.5 [facility] Comment on above: Performed By: #### U RCX #### [facility] [address] [place] [address] Dr. Ramses Dumas Neutrophils/100 WBC (Bld) 49.5 % Normal 43.0-75.0 [facility] Comment on above: Performed By: #### U RCX #### [facility] [address] [place] [address] Dr. Ramses Dumas Platelet mean volume (Bld) [Entitic vol] 9.0 fL Critically low 9.5-13.5 [facility] Comment on above: Performed By: #### U RCX #### [facility] [address] [place] [address] Dr. Ramses Dumas PLT 337 103/ul Normal 150-450 [facility] Comment on above: Performed By: #### U RCX #### [facility] [address] [place] [address] Dr. Ramses Dumas RBC 4.62 106/ul Normal 4.20-5.40 [facility] Comment on above: Performed By: #### U RCX #### [facility] [address] [place] [address] Dr. Ramses Dumas WBC 5.9 103/ul Normal 4.0-11.0 [facility] Comment on above: Performed By: #### U RCX #### [facility] [address] [place] [address] Dr. Ramses Dumas POINT OF CARE GLUCOSEon -2 Glucose [Mass/Vol] 115 mg/dL Critically high 74-106 [facility] Comment on above: Performed By: #### C VDTBH #### [facility] [address] [place] [address] Dr. Ramses Dumas PREG QUANT HCGon 11-07-2022 HCG QUANT <1 Normal [facility] Comment on above: Performed By: #### C VDTBH #### [facility] [address] [place] [address] Dr. Ramses Dumas HCG RANGE SEE BELOW Normal [facility] Comment on above: Result Comment: 5-50 0.2-1 WEEK 50-500 1-2 WEEKS 100-5,000 2-3 WEEKS 500-10,000 3-4 WEEKS 1,000-50,000 4-5 WEEKS 10,000-100,000 5-6 WEEKS 15,000-200,000 6-8 WEEKS 10,000-100,000 2-3 MONTHS Performed By: #### C VDTBH #### [facility] [address] [place] [address] Dr. Ramses Dumas US PELVIS AND TRANSVAGon US PELVIS AND TRANSVAG Begin Addendum #1 Impression should read: 1.9 cm right [...] cm right ovarian simple cyst Normal [facility] CBC AUTO DIFFon 11-03-2022 BASO # 0.1 103/ul Normal 0.0-0.1 [facility] Comment on above: Performed By: #### U RCX #### [facility] [address] [address] [address] Ramses Dumas Basophils/100 WBC (Bld) 0.8 % Normal 0.2-2.0 [facility] Comment on above: Performed By: #### U RCX #### [facility] [address] [address] [address] Ramses Dumas EO # 0.1 103/ul Normal 0.0-0.7 [facility] Comment on above: Performed By: #### U RCX #### [facility] [address] [address] [address] Ramses Dumas Eosinophils/100 WBC (Bld) 1.4 % Normal 0.9-7.0 [facility] Comment on above: Performed By: #### U RCX #### [facility] [address] [address] [address] Ramses Dumas Erythrocyte distribution width (RBC) [Ratio] 13.4 % Normal 11.0-15.0 [facility] Comment on above: Performed By: #### U RCX #### [facility] [address] [address] [address] Ramses Dumas Hematocrit (Bld) [Volume fraction] 38.8 % Normal 36.0-48.0 [facility] Comment on above: Performed By: #### U RCX #### [facility] [address] [address] [address] Ramses Dumas Hemoglobin (Bld) [Mass/Vol] 12.7 g/dL Normal 12.0-16.0 [facility] Comment on above: Performed By: #### U RCX #### [facility] [address] [address] [address] Ramses Dumas IG # 0.01 10e3/ul Normal 0.00-0.03 [facility] Comment on above: Performed By: #### U RCX #### [facility] [address] [place] [address] Dr. Ramses Dumas IG % 0.1 % Normal 0.0-0.5 [facility] Comment on above: Performed By: #### U RCX #### [facility] [address] [address] [address] Ramses Dumas LYMPH # 1.9 103/ul Normal 1.2-3.8 [facility] Comment on above: Performed By: #### U RCX #### [facility] [address] [place] [address] Dr. Ramses Dumas Lymphocytes/100 WBC (Bld) 26.4 % Normal 20.5-60.0 [facility] Comment on above: Performed By: #### U RCX #### [facility] [address] [place] [address] Dr. Ramses Dumas MANUAL DIFF REQ NO Normal [facility] Comment on above: Performed By: #### U RCX #### [facility] [address] [place] [address] Dr. Ramses Dumas MCH (RBC) [Entitic mass] 26.3 pg Critically low 26.7-34.0 [facility] Comment on above: Performed By: #### U RCX #### [facility] [address] [place] [address] Dr. Ramses Dumas MCHC (RBC) [Mass/Vol] 32.7 g/dL Normal 29.9-35.2 [facility] Comment on above: Performed By: #### U RCX #### [facility] [address] [place] [address] Dr. Ramses Dumas MCV (RBC) [Entitic vol] 80.5 fL Critically low 81.0-99.0 [facility] Comment on above: Performed By: #### U RCX #### [facility] [address] [address] [address] Ramses Dumas MONO # 0.6 103/ul Normal 0.3-0.8 [facility] Comment on above: Performed By: #### U RCX #### [facility] [address] [address] [address] Ramses Dumas Monocytes/100 WBC (Bld) 8.2 % Normal 1.7-12.0 [facility] Comment on above: Performed By: #### U RCX #### [facility] [address] [place] [address] Dr. Ramses Dumas NEUT # 4.5 103/ul Normal 1.4-6.5 [facility] Comment on above: Performed By: #### U RCX #### [facility] [address] [place] [address] Dr. Ramses Dumas Neutrophils/100 WBC (Bld) 63.1 % Normal 43.0-75.0 [facility] Comment on above: Performed By: #### U RCX #### [facility] [address] [place] [address] Dr. Ramses Dumas Platelet mean volume (Bld) [Entitic vol] 8.9 fL Critically low 9.5-13.5 [facility] Comment on above: Performed By: #### U RCX #### [facility] [address] [place] [address] Dr. Ramses Dumas PLT 340 103/ul Normal 150-450 [facility] Comment on above: Performed By: #### U RCX #### [facility] [address] [place] [address] Dr. Ramses Dumas RBC 4.82 106/ul Normal 4.20-5.40 [facility] Comment on above: Performed By: #### U RCX #### [facility] [address] [place] [address] Dr. Ramses Dumas WBC 7.1 103/ul Normal 4.0-11.0 [facility] Comment on above: Performed By: #### U RCX #### [facility] [address] [place] [address] Dr. Ramses Dumas Covid-19 PCR (CVDTB)on 10-19 SARS-CoV-2 (COVID-19) RNA FRANCESCA+probe Ql (Unsp spec) Not detected Normal NOT DETECTED [facility] Comment on above: Result Comment: This test is not yet approved or cleared by the [place] FDA. When there are no FDA-approved or cleared tests available, and other criteria are met, FDA can make tests available under an emergency access mechanism called an Emergency Use Authorization (EUA). The EUA for this test is supported by the Workers Compensation Adjuster of Health and Human Service's (HHS's) declaration [...] SARS-CoV-2. Performed By: #### U RCX #### [facility] [address] [place] [address] Dr. Ramses Dumas FREE T4on 11-03-2022 Free T4 [Mass/Vol] 0.99 ng/dL Normal 0.76-1.46 [facility] Comment on above: Performed By: #### B [id number] #### [facility] [address] [place] [address] Dr. Ramses Dumas GLYCOHEMOGLOBIN A1Con 2022 ADA RECOMMENDATION SEE BELOW Normal [facility] Comment on above: Result Comment: ADA RECOMMENDED LIMIT 4.0 - 6.0 ADA THERAPEUTIC TARGET < 7.0 ACTION SUGGESTED > 7.0 Performed By: #### C VDTBH #### [facility] [address] [place] [address] Dr. Ramses Dumas Glucose [Mass/Vol] 117 mg/dL Normal [facility] Comment on above: Performed By: #### C VDTBH #### [facility] [address] [place] [address] Dr. Ramses Dumas HbA1c (Bld) [Mass fraction] 5.7 % Normal 4.5-6.2 [facility] Comment on above: Performed By: #### C VDTBH #### [facility] [address] [place] [address] Dr. Ramses Dumas PROTIMEon 11-03-2022 INR Coag (PPP) [Relative time] 0.97 {INR} Normal [facility] Comment on above: Performed By: #### U KJ 24 #### [facility] [address] [place] [address] Dr. Ramses Dumas INR GUIDELINES SEE BELOW Normal The [facility] Comment on above: Result Comment: TOÑA RED INR: 2.0 - 3.0 CONDITIONS NOT LISTED BELOW 2.5 - 3.5 FOR PROSTHETIC HEART VALVE REPLACEMENT 2.5 - 3.5 RECURRENT THROMBOSIS Performed By: #### U KJ 24 #### [facility] [address] [place] [address] Dr. Ramses Dumas PT Coag (PPP) [Time] 10.3 s Normal 9.0-11.6 [facility] Comment on above: Performed By: #### U KJ 24 #### [facility] [address] [place] [address] Dr. Ramses Dumas PTTon 11-03-2022 aPTT Coag (Bld) [Time] 27.7 s Normal 22.3-36.2 [facility] Comment on above: Performed By: #### U KJ 24 #### [facility] [address] [place] [address] Dr. Ramses Dumas TSHon 11-03-2022 TSH 0.667 uIU/mL Normal 0.358-3.740 [facility] Comment on above: Performed By: #### C VDTBH #### [facility] [address] [place] [address] Dr. Ramses Dumas PREG HCG QUALon 09-18-2022 , QUAL Negative Normal NEGATIVE [facility] Comment on above: Performed By: #### U KJ 24 #### [facility] [address] [place] [address] Dr. Ramses Dumas Covid-19 PCR (CVDTB)on 08-20 SARS-CoV-2 (COVID-19) RNA FRANCESCA+probe Ql (Unsp spec) Not detected Normal NOT DETECTED [facility] Comment on above: Result Comment: This test is not yet approved or cleared by the [place] FDA. When there are no FDA-approved or cleared tests available, and other criteria are met, FDA can make tests available under an emergency access mechanism called an Emergency Use Authorization (EUA). The EUA for this test is supported by the Workers Compensation Adjuster of Health and Human Service's (HHS's) declaration [...] SARS-CoV-2. Performed By: #### C VDTBH #### [facility] [address] [place] [address] Dr. Ramses Dumas CBC AUTO DIFFon 09-05-2022 BASO # 0.1 103/ul Normal 0.0-0.1 [facility] Comment on above: Performed By: #### B LDCX2 #### [facility] [address] [place] [address] Dr. Ramses Dumas Basophils/100 WBC (Bld) 0.7 % Normal 0.2-2.0 [facility] Comment on above: Performed By: #### B LDCX2 #### [facility] [address] [place] [address] Dr. Ramses Dumas EO # 0.2 103/ul Normal 0.0-0.7 [facility] Comment on above: Performed By: #### B LDCX2 #### [facility] [address] [place] [address] Dr. Ramses Dumas Eosinophils/100 WBC (Bld) 2.2 % Normal 0.9-7.0 [facility] Comment on above: Performed By: #### B LDCX2 #### [facility] [address] [place] [address] Dr. Ramses Dumas Erythrocyte distribution width (RBC) [Ratio] 13.9 % Normal 11.0-15.0 [facility] Comment on above: Performed By: #### B LDCX2 #### [facility] [address] [place] [address] Dr. Ramses Dumas Hematocrit (Bld) [Volume fraction] 38.8 % Normal 36.0-48.0 [facility] Comment on above: Performed By: #### B LDCX2 #### [facility] [address] [place] [address] Dr. Ramses Dumas Hemoglobin (Bld) [Mass/Vol] 12.6 g/dL Normal 12.0-16.0 [facility] Comment on above: Performed By: #### B LDCX2 #### [facility] [address] [place] [address] Dr. Ramses Dumas IG # 0.03 10e3/ul Normal 0.00-0.03 [facility] Comment on above: Performed By: #### B LDCX2 #### [facility] [address] [place] [address] Dr. Ramses Dumas IG % 0.3 % Normal 0.0-0.5 [facility] Comment on above: Performed By: #### B LDCX2 #### [facility] [address] [place] [address] Dr. Ramses Dumas LYMPH # 2.3 103/ul Normal 1.2-3.8 [facility] Comment on above: Performed By: #### B LDCX2 #### [facility] [address] [place] [address] Dr. Ramses Dumas Lymphocytes/100 WBC (Bld) 21.3 % Normal 20.5-60.0 [facility] Comment on above: Performed By: #### B LDCX2 #### [facility] [address] [place] [address] Dr. Ramses Dumas MANUAL DIFF REQ NO Normal [facility] Comment on above: Performed By: #### B LDCX2 #### [facility] [address] [place] [address] Dr. Ramses Dumas MCH (RBC) [Entitic mass] 26.4 pg Critically low 26.7-34.0 [facility] Comment on above: Performed By: #### B LDCX2 #### [facility] [address] [place] [address] Dr. Ramses Dumas MCHC (RBC) [Mass/Vol] 32.5 g/dL Normal 29.9-35.2 [facility] Comment on above: Performed By: #### B LDCX2 #### [facility] [address] [place] [address] Dr. Ramses Dumas MCV (RBC) [Entitic vol] 81.2 fL Normal 81.0-99.0 [facility] Comment on above: Performed By: #### B LDCX2 #### [facility] [address] [place] [address] Dr. Ramses Dumas MONO # 0.8 103/ul Normal 0.3-0.8 [facility] Comment on above: Performed By: #### B LDCX2 #### [facility] [address] [place] [address] Dr. Ramses Dumas Monocytes/100 WBC (Bld) 7.4 % Normal 1.7-12.0 [facility] Comment on above: Performed By: #### B LDCX2 #### [facility] [address] [place] [address] Dr. Ramses Dumas NEUT # 7.3 103/ul Critically high 1.4-6.[address] [facility] Comment on above: Performed By: #### B LDCX2 #### [facility] [address] [place] [address] Dr. Ramses Dumas Neutrophils/100 WBC (Bld) 68.1 % Normal 43.0-75.0 [facility] Comment on above: Performed By: #### B LDCX2 #### [facility] [address] [address] [address] Ramses Dumas Platelet mean volume (Bld) [Entitic vol] 8.8 fL Critically low 9.5-13.5 [facility] Comment on above: Performed By: #### B LDCX2 #### [facility] [address] [address] [address] Ramses Dumas PLT 323 103/ul Normal 150-450 [facility] Comment on above: Performed By: #### B LDCX2 #### [facility] [address] [address] [address] Ramses Dumas RBC 4.78 106/ul Normal 4.20-5.40 [facility] Comment on above: Performed By: #### B LDCX2 #### [facility] [address] [address] [address] Ramses Dumas WBC 10.7 103/ul Normal 4.0-11.0 [facility] Comment on above: Performed By: #### B LDCX2 #### [facility] [address] [address] [address] Ramses Dumas CULTURE URINEon 09-05-2022 CULTURE URINE Culture Observations : LIGHT GROWTH OF MIXED GENITAL DAIANA. NO POTENTIAL PATHOGENS SEEN. Normal [facility] Comment on above: Performed By: #### U RCX #### [facility] [address] [address] [address] Ramses Dumas ER URINE PROFILEon Bilirubin Ql (U) Negative Normal NEGATIVE [facility] Comment on above: Performed By: #### B LDCX2 #### [facility] [address] [address] [address] Ramses Dumas Clarity (U) CLOUDY Abnormal CLEAR [facility] Comment on above: Performed By: #### B LDCX2 #### [facility] [address] [address] [address] Ramses Dumas Color (U) YELLOW Normal YELLOW [facility] Comment on above: Performed By: #### B LDCX2 #### [facility] [address] [place] [address] Dr. Ramses DELEON A micrscopic examination will be performed if indicated. Normal [facility] Comment on above: Performed By: #### B LDCX2 #### [facility] [address] [place] [address] Dr. Ramses Dumas Glucose Ql (U) Negative Normal NEGATIVE [facility] Comment on above: Performed By: #### B LDCX2 #### [facility] [address] [place] [address] Dr. Ramses Dumas Hemoglobin Ql (U) LARGE Abnormal NEGATIVE [facility] Comment on above: Performed By: #### B LDCX2 #### [facility] [address] [place] [address] Dr. Ramses Dumas Ketones Ql (U) Negative Normal NEGATIVE [facility] Comment on above: Performed By: #### B LDCX2 #### [facility] [address] [place] [address] Dr. Ramses Dumas LEUKOCYTES SMALL Abnormal NEGATIVE [facility] Comment on above: Performed By: #### B LDCX2 #### [facility] [address] [place] [address] Dr. Ramses Dumas Nitrite Ql (U) Negative Normal NEGATIVE [facility] Comment on above: Performed By: #### B LDCX2 #### [facility] [address] [place] [address] Dr. Ramses Dumas pH (U) 6.0 [pH] Normal 5-9 [facility] Comment on above: Performed By: #### B LDCX2 #### [facility] [address] [place] [address] Dr. Ramses Dumas Protein (U) [Mass/Vol] 100 mg/dL Abnormal NEGATIVE/ TRACE [facility] Comment on above: Performed By: #### B LDCX2 #### [facility] [address] [place] [address] Dr. Ramses Dumas SPEC GRAVITY >=1.030 Abnormal 1.005-<=1.02 5 [facility] Comment on above: Performed By: #### B LDCX2 #### [facility] [address] [place] [address] Dr. Ramses Dumas UR MICRO IND INDICATED Normal [facility] Comment on above: Performed By: #### B LDCX2 #### [facility] [address] [place] [address] Dr. Ramses Dumas Urobilinogen Qn (U) 0.2 {Lucero'U}/dL Normal 0.2 - 1. 0 [facility] Comment on above: Performed By: #### B LDCX2 #### [facility] [address] [place] [address] Dr. Ramses Dumas URon 09-05-2022 , QUAL Negative Normal NEGATIVE [facility] Comment on above: Performed By: #### B LDCX2 #### [facility] [address] [place] [address] Dr. Ramses Dumas PROF CHEM 8 (BAS METB)on Anion gap [Moles/Vol] 11.7 mmol/L Normal [facility] Comment on above: Performed By: #### C MP #### [facility] [address] [place] [address] Dr. Ramses Dumas Calcium [Mass/Vol] 9.1 mg/dL Normal 8.5-10.[address] [facility] Comment on above: Performed By: #### C MP #### [facility] [address] [place] [address] Dr. Ramses Dumas Chloride [Moles/Vol] 103 mmol/L Normal 98-107 [facility] Comment on above: Performed By: #### C MP #### [facility] [address] [place] [address] Dr. Ramses Dumas CO2 [Moles/Vol] 25.9 mmol/L Normal 21.0-32.0 [facility] Comment on above: Performed By: #### C MP #### [facility] [address] [place] [address] Dr. Ramses Dumas Creatinine [Mass/Vol] 0.77 mg/dL Normal 0.55-1.02 [facility] Comment on above: Performed By: #### C MP #### [facility] [address] [address] [address] Ramses Dumas EGFR-AF INDONESIAN >60 Normal >=60 [facility] Comment on above: Performed By: #### C MP #### [facility] [address] [address] [address] Ramses Dumas EGFR-NON AF INDONESIAN >60 Normal >=60 [facility] Comment on above: Performed By: #### C MP #### [facility] [address] [address] [address] Ramses Dumas Glucose [Mass/Vol] 124 mg/dL Critically high 74-106 [facility] Comment on above: Performed By: #### C MP #### [facility] [address] [address] [address] Ramses Dumas Potassium [Moles/Vol] 3.6 mmol/L Normal 3.5-5.1 [facility] Comment on above: Performed By: #### C MP #### [facility] [address] [address] [address] Ramses Dumas Sodium [Moles/Vol] 137 mmol/L Normal 136-145 [facility] Comment on above: Performed By: #### C MP #### [facility] [address] [address] [address] Ramses Dumas Urea nitrogen [Mass/Vol] 12.0 mg/dL Normal 7.0-18.0 [facility] Comment on above: Performed By: #### C MP #### [facility] [address] [address] [address] Ramses Dumas Urea nitrogen/Creatinine [Mass ratio] 15.6 mg/mg Normal [facility] Comment on above: Performed By: #### C MP #### [facility] [address] [address] [address] Ramses Dumas URINE MICROSCOPIC ONLYon AMORPHOUS CRYSTALS RARE Normal [facility] Comment on above: Performed By: #### B LDCX2 #### [facility] [address] [address] [address] Ramses Dumas BACTERIA TRACE Abnormal NONE SEEN [facility] Comment on above: Performed By: #### B LDCX2 #### [facility] [address] [address] [address] Ramses Dumas Bacteria identified Cx Nom (U) INDICATED Normal [facility] Comment on above: Performed By: #### B LDCX2 #### [facility] [address] [place] [address] Dr. Ramses Dumas CA OX CRYSTALS RARE Normal [facility] Comment on above: Performed By: #### B LDCX2 #### [facility] [address] [address] [address] Ramses Dumas CAST NONE SEEN Normal NONE SEEN [facility] Comment on above: Performed By: #### B LDCX2 #### [facility] [address] [place] [address] Dr. Ramses Dumas Crystals LM Nom (Urine sed) SEEN Abnormal NONE SEEN [facility] Comment on above: Performed By: #### B LDCX2 #### [facility] [address] [place] [address] Dr. Ramses Dumas Epithelial cells LM Ql (Urine sed) FEW Abnormal NONE SEEN /RARE [facility] Comment on above: Performed By: #### B LDCX2 #### [facility] [address] [place] [address] Dr. Ramses Dumas MUCOUS TRACE Abnormal NONE SEEN [facility] Comment on above: Performed By: #### B LDCX2 #### [facility] [address] [address] [address] Ramses Dumas RBC 50-75 Abnormal 0-2 [facility] Comment on above: Performed By: #### B LDCX2 #### [facility] [address] [place] [address] Dr. Ramses Dumas WBC 20-50 Abnormal NONE SEEN [facility] Comment on above: Performed By: #### B LDCX2 #### [facility] [address] [place] [address] Dr. Ramses Dumas YEAST PRESENT Abnormal NONE SEEN [facility] Comment on above: Performed By: #### B LDCX2 #### [facility] [address] [address] [address] Ramses Dumas US KIDNEYSon 09-05-2022 US [...] Bilateral nonobstructing nephrolithiasis Electronically authenticated by: GLEN PEREZ Date: 2022-09-05 11:00 Normal [facility] CT ABD/PELVIS WO CONon [...] ERICKA IGLESIAS Date: 2022-08-29 01:10 Normal [facility] CULTURE URINEon 08-29-2022 CULTURE URINE Culture Observations : LIGHT GROWTH OF MIXED GENITAL DAIANA. NO POTENTIAL PATHOGENS SEEN. Normal [facility] Comment on above: Performed By: #### U RCX #### [facility] [address] [place] [address] Dr. Ramses Dumas CBC AUTO DIFFon 08-28-2022 BASO # 0.1 103/ul Normal 0.0-0.1 [facility] Comment on above: Performed By: #### U RCX #### [facility] [address] [place] [address] Dr. Ramses Dumas Basophils/100 WBC (Bld) 0.5 % Normal 0.2-2.0 [facility] Comment on above: Performed By: #### U RCX #### [facility] [address] [place] [address] Dr. Ramses Dumas EO # 0.3 103/ul Normal 0.0-0.7 [facility] Comment on above: Performed By: #### U RCX #### [facility] [address] [place] [address] Dr. Ramses Dumas Eosinophils/100 WBC (Bld) 2.3 % Normal 0.9-7.0 [facility] Comment on above: Performed By: #### U RCX #### [facility] [address] [place] [address] Dr. Ramses Dumas Erythrocyte distribution width (RBC) [Ratio] 13.7 % Normal 11.0-15.0 [facility] Comment on above: Performed By: #### U RCX #### [facility] [address] [address] [address] Ramses Dumas Hematocrit (Bld) [Volume fraction] 36.7 % Normal 36.0-48.0 [facility] Comment on above: Performed By: #### U RCX #### [facility] [address] [address] [address] Ramses Dumas Hemoglobin (Bld) [Mass/Vol] 12.3 g/dL Normal 12.0-16.0 [facility] Comment on above: Performed By: #### U RCX #### [facility] [address] [address] [address] Ramses Dumas IG # 0.16 10e3/ul Critically high 0.00-0.03 [facility] Comment on above: Performed By: #### U RCX #### [facility] [address] [place] [address] Dr. Ramses Dumas IG % 1.1 % Critically high 0.0-0.5 [facility] Comment on above: Performed By: #### U RCX #### [facility] [address] [address] [address] Ramses Dumas LYMPH # 4.6 103/ul Critically high 1.2-3.8 [facility] Comment on above: Performed By: #### U RCX #### [facility] [address] [place] [address] Dr. Ramses Dumas Lymphocytes/100 WBC (Bld) 31.8 % Normal 20.5-60.0 [facility] Comment on above: Performed By: #### U RCX #### [facility] [address] [address] [address] Ramses Dumas MANUAL DIFF REQ NO Normal [facility] Comment on above: Performed By: #### U RCX #### [facility] [address] [address] [address] Ramses Dumas MCH (RBC) [Entitic mass] 26.9 pg Normal 26.7-34.0 [facility] Comment on above: Performed By: #### U RCX #### [facility] [address] [address] [address] Ramses Dumas MCHC (RBC) [Mass/Vol] 33.5 g/dL Normal 29.9-35.2 [facility] Comment on above: Performed By: #### U RCX #### [facility] [address] [address] [address] Ramses Dumas MCV (RBC) [Entitic vol] 80.3 fL Critically low 81.0-99.0 [facility] Comment on above: Performed By: #### U RCX #### [facility] [address] [address] [address] Ramses Dumas MONO # 1.0 103/ul Critically high 0.3-0.[address] [facility] Comment on above: Performed By: #### U RCX #### [facility] [address] [place] [address] Dr. Ramess Dumas Monocytes/100 WBC (Bld) 7.0 % Normal 1.7-12.0 [facility] Comment on above: Performed By: #### U RCX #### [facility] [address] [address] [address] Ramses Dumas NEUT # 8.2 103/ul Critically high 1.4-6.[address] [facility] Comment on above: Performed By: #### U RCX #### [facility] [address] [place] [address] Dr. Ramses Dumas Neutrophils/100 WBC (Bld) 57.3 % Normal 43.0-75.0 [facility] Comment on above: Performed By: #### U RCX #### [facility] [address] [address] [address] Ramses Dumas Platelet mean volume (Bld) [Entitic vol] 8.6 fL Critically low 9.5-13.5 [facility] Comment on above: Performed By: #### U RCX #### [facility] [address] [place] [address] Dr. Ramses Dumas PLT 395 103/ul Normal 150-450 [facility] Comment on above: Performed By: #### U RCX #### [facility] [address] [place] [address] Dr. Ramses Dumas RBC 4.57 106/ul Normal 4.20-5.40 [facility] Comment on above: Performed By: #### U RCX #### [facility] [address] [place] [address] Dr. Ramses Dumas WBC 14.3 103/ul Critically high 4.0-11.0 [facility] Comment on above: Performed By: #### U RCX #### [facility] [address] [place] [address] Dr. Ramses Dumas ER URINE PROFILEon 2 Bilirubin Ql (U) Negative Normal NEGATIVE [facility] Comment on above: Performed By: #### U KJ 24 #### [facility] [address] [place] [address] Dr. Ramses Dumas Clarity (U) CLEAR Normal CLEAR [facility] Comment on above: Performed By: #### U KJ 24 #### [facility] [address] [place] [address] Dr. Ramses Dumas Color (U) LT. YELLOW Normal YELLOW [facility] Comment on above: Performed By: #### U KJ 24 #### [facility] [address] [place] [address] Dr. Ramses DELEON A micrscopic examination will be performed if indicated. Normal [facility] Comment on above: Performed By: #### U KJ 24 #### [facility] [address] [place] [address] Dr. Ramses Dumas Glucose Ql (U) Negative Normal NEGATIVE The [facility] Comment on above: Performed By: #### U KJ 24 #### [facility] [address] [place] [address] Dr. Ramses Dumas Hemoglobin Ql (U) LARGE Abnormal NEGATIVE [facility] Comment on above: Performed By: #### U KJ 24 #### [facility] [address] [place] [address] Dr. Ramses Dumas Ketones Ql (U) Negative Normal NEGATIVE The [facility] Comment on above: Performed By: #### U KJ 24 #### [facility] [address] [place] [address] Dr. Ramses Dumas LEUKOCYTES MODERATE Abnormal NEGATIVE [facility] Comment on above: Performed By: #### U KJ 24 #### [facility] [address] [place] [address] Dr. Ramses Dumas Nitrite Ql (U) Negative Normal NEGATIVE [facility] Comment on above: Performed By: #### U KJ 24 #### [facility] [address] [place] [address] Dr. Ramses Dumas pH (U) 6.5 [pH] Normal 5-9 [facility] Comment on above: Performed By: #### U KJ 24 #### [facility] [address] [place] [address] Dr. Ramses Dumas Protein (U) [Mass/Vol] 100 mg/dL Abnormal NEGATIVE/ TRACE [facility] Comment on above: Performed By: #### U KJ 24 #### [facility] [address] [place] [address] Dr. Ramses Dumas SPEC GRAVITY 1.020 Normal 1.005-<=1.02 5 [facility] Comment on above: Performed By: #### U KJ 24 #### [facility] [address] [place] [address] Dr. Ramses Dumas UR MICRO IND INDICATED Normal [facility] Comment on above: Performed By: #### U KJ 24 #### [facility] [address] [place] [address] Dr. Ramses Dumas Urobilinogen Qn (U) 0.2 {Lucero'U}/dL Normal 0.2 - 1. 0 [facility] Comment on above: Performed By: #### U KJ 24 #### [facility] [address] [place] [address] Dr. Ramses Dumas PROF 14(COMP METB)on 022 Albumin [Mass/Vol] 3.3 g/dL Critically low 3.4-5.0 [facility] Comment on above: Performed By: #### C MP #### [facility] [address] [place] [address] Dr. Ramses Dumas Albumin/Globulin [Mass ratio] 0.8 {ratio} Normal [facility] Comment on above: Performed By: #### C MP #### [facility] [address] [place] [address] Dr. Ramses Dumas ALP [Catalytic activity/Vol] 108 U/L Normal 46-116 [facility] Comment on above: Performed By: #### C MP #### [facility] [address] [address] [address] Ramses Dumas ALT [Catalytic activity/Vol] 103 U/L Critically high 14-59 [facility] Comment on above: Performed By: #### C MP #### [facility] [address] [place] [address] Dr. Ramses Dumas Anion gap [Moles/Vol] 6.6 mmol/L Normal [facility] Comment on above: Performed By: #### C MP #### [facility] [address] [place] [address] Dr. Ramses Dumas AST [Catalytic activity/Vol] 21 U/L Normal 15-37 [facility] Comment on above: Performed By: #### C MP #### [facility] [address] [place] [address] Dr. Ramses Dumas Bilirubin [Mass/Vol] 0.2 mg/dL Normal 0.2-1.0 [facility] Comment on above: Performed By: #### C MP #### [facility] [address] [place] [address] Dr. Ramses Dumas Calcium [Mass/Vol] 9.2 mg/dL Normal 8.5-10.[address] [facility] Comment on above: Performed By: #### C MP #### [facility] [address] [address] [address] Ramses Dumas Chloride [Moles/Vol] 102 mmol/L Normal 98-107 [facility] Comment on above: Performed By: #### C MP #### [facility] [address] [place] [address] Dr. Ramses Dumas CO2 [Moles/Vol] 28.8 mmol/L Normal 21.0-32.0 [facility] Comment on above: Performed By: #### C MP #### [facility] [address] [address] [address] Ramses Dumas Creatinine [Mass/Vol] 0.92 mg/dL Normal 0.55-1.02 [facility] Comment on above: Performed By: #### C MP #### [facility] [address] [address] [address] Ramses Dumas EGFR-AF INDONESIAN >60 Normal >=60 [facility] Comment on above: Performed By: #### C MP #### [facility] [address] [address] [address] Ramses Dumas EGFR-NON AF INDONESIAN >60 Normal >=60 [facility] Comment on above: Performed By: #### C MP #### [facility] [address] [address] [address] Ramses uDmas Globulin (S) [Mass/Vol] 4.1 g/dL Normal [facility] Comment on above: Performed By: #### C MP #### [facility] [address] [address] [address] Ramses Dumas Glucose [Mass/Vol] 114 mg/dL Critically high 74-106 [facility] Comment on above: Performed By: #### C MP #### [facility] [address] [address] [address] Ramses Dumas Potassium [Moles/Vol] 3.4 mmol/L Critically low 3.5-5.1 [facility] Comment on above: Performed By: #### C MP #### [facility] [address] [address] [address] Ramses Dumas Protein [Mass/Vol] 7.4 g/dL Normal 6.4-8.[address] [facility] Comment on above: Performed By: #### C MP #### [facility] [address] [address] [address] Ramses Dumas Sodium [Moles/Vol] 134 mmol/L Critically low 136-145 [facility] Comment on above: Performed By: #### C MP #### [facility] [address] [address] [address] Ramses Dumas Urea nitrogen [Mass/Vol] 11.0 mg/dL Normal 7.0-18.0 [facility] Comment on above: Performed By: #### C MP #### [facility] [address] [place] [address] Dr. Ramses Dumas Urea nitrogen/Creatinine [Mass ratio] 12.0 mg/mg Normal [facility] Comment on above: Performed By: #### C MP #### [facility] [address] [place] [address] Dr. Ramses Dumas URINE MICROSCOPIC ONLYon BACTERIA MODERATE Abnormal NONE SEEN The [facility] Comment on above: Performed By: #### U KJ 24 #### [facility] [address] [place] [address] Dr. Ramses Dumas Bacteria identified Cx Nom (U) INDICATED Normal [facility] Comment on above: Performed By: #### U KJ 24 #### [facility] [address] [place] [address] Dr. Ramses Dumas CAST NONE SEEN Normal NONE SEEN [facility] Comment on above: Performed By: #### U KJ 24 #### [facility] [address] [place] [address] Dr. Ramses Dumas Crystals LM Nom (Urine sed) NONE SEEN Normal NONE SEEN [facility] Comment on above: Performed By: #### U KJ 24 #### [facility] [address] [place] [address] Dr. Ramses Dumas Epithelial cells LM Ql (Urine sed) RARE Normal NONE SEEN /RARE [facility] Comment on above: Performed By: #### U KJ 24 #### [facility] [address] [place] [address] Dr. Ramses Dumas MUCOUS NONE SEEN Normal NONE SEEN [facility] Comment on above: Performed By: #### U KJ 24 #### [facility] [address] [place] [address] Dr. Ramses Dumas RBC 20-50 Abnormal 0-2 [facility] Comment on above: Performed By: #### U KJ 24 #### [facility] [address] [place] [address] Dr. Ramses Dumas WBC 5-10 Abnormal NONE SEEN [facility] Comment on above: Performed By: #### U KJ 24 #### [facility] [address] [place] [address] Dr. Ramses Dumas CULTURE BLOODon 08-25-2022 Microscopic [...] F Tetracycline >=16 R F Normal [facility] Comment on above: Performed By: #### B LDCX2 #### [facility] [address] [place] [address] Dr. Ramses Dumas Microscopic examination of blood, [...] Tetracycline >=16 R F Normal [facility] Comment on above: Performed By: #### C BC #### [facility] [address] [place] [address] Dr. Ramses Dumas CBC AUTO DIFFon 08-24-2022 BASO # 0.0 103/ul Normal 0.0-0.1 [facility] Comment on above: Performed By: #### C BC #### [facility] [address] [place] [address] Dr. Ramses Dumas Basophils/100 WBC (Bld) 0.1 % Critically low 0.2-2.0 [facility] Comment on above: Performed By: #### C BC #### [facility] [address] [place] [address] Dr. Ramses Dumas EO # 0.0 103/ul Normal 0.0-0.7 [facility] Comment on above: Performed By: #### C BC #### [facility] [address] [place] [address] Dr. Ramses Dumas Eosinophils/100 WBC (Bld) 0.0 % Critically low 0.9-7.0 [facility] Comment on above: Performed By: #### C BC #### [facility] [address] [place] [address] Dr. Ramses Dumas Erythrocyte distribution width (RBC) [Ratio] 13.5 % Normal 11.0-15.0 [facility] Comment on above: Performed By: #### C BC #### [facility] [address] [place] [address] Dr. Ramses Dumas Hematocrit (Bld) [Volume fraction] 33.0 % Critically low 36.0-48.0 [facility] Comment on above: Performed By: #### C BC #### [facility] [address] [place] [address] Dr. Ramses Dumas Hemoglobin (Bld) [Mass/Vol] 10.7 g/dL Critically low 12.0-16.0 [facility] Comment on above: Performed By: #### C BC #### [facility] [address] [place] [address] Dr. Ramses Dumas IG # 0.04 10e3/ul Critically high 0.00-0.03 [facility] Comment on above: Performed By: #### C BC #### [facility] [address] [place] [address] Dr. Ramses Dumas IG % 0.4 % Normal 0.0-0.5 [facility] Comment on above: Performed By: #### C BC #### [facility] [address] [place] [address] Dr. Ramses Dumas LYMPH # 0.8 103/ul Critically low 1.2-3.8 [facility] Comment on above: Performed By: #### C BC #### [facility] [address] [place] [address] Dr. Ramses Dumas Lymphocytes/100 WBC (Bld) 7.9 % Critically low 20.5-60.0 [facility] Comment on above: Performed By: #### C BC #### [facility] [address] [place] [address] Dr. Ramses Dumas MANUAL DIFF REQ NO Normal [facility] Comment on above: Performed By: #### C BC #### [facility] [address] [place] [address] Dr. Ramses Dumas MCH (RBC) [Entitic mass] 26.5 pg Critically low 26.7-34.0 [facility] Comment on above: Performed By: #### C BC #### [facility] [address] [place] [address] Dr. Ramses Dumas MCHC (RBC) [Mass/Vol] 32.4 g/dL Normal 29.9-35.2 [facility] Comment on above: Performed By: #### C BC #### [facility] [address] [place] [address] Dr. Ramses Dumas MCV (RBC) [Entitic vol] 81.7 fL Normal 81.0-99.0 [facility] Comment on above: Performed By: #### C BC #### [facility] [address] [place] [address] Dr. Ramses Dumas MONO # 0.6 103/ul Normal 0.3-0.8 [facility] Comment on above: Performed By: #### C BC #### [facility] [address] [place] [address] Dr. Ramses Dumas Monocytes/100 WBC (Bld) 6.3 % Normal 1.7-12.0 [facility] Comment on above: Performed By: #### C BC #### [facility] [address] [address] [address] Ramses Dumas NEUT # 8.6 103/ul Critically high 1.4-6.5 [facility] Comment on above: Performed By: #### C BC #### [facility] [address] [address] [address] Ramses Dumas Neutrophils/100 WBC (Bld) 85.3 % Critically high 43.0-75.0 [facility] Comment on above: Performed By: #### C BC #### [facility] [address] [address] [address] Ramses Dumas Platelet mean volume (Bld) [Entitic vol] 9.1 fL Critically low 9.5-13.5 [facility] Comment on above: Performed By: #### C BC #### [facility] [address] [address] [address] Ramses Dumas PLT 248 103/ul Normal 150-450 [facility] Comment on above: Performed By: #### C BC #### [facility] [address] [address] [address] Ramses Dumas RBC 4.04 106/ul Critically low 4.20-5.40 [facility] Comment on above: Performed By: #### C BC #### [facility] [address] [address] [address] Ramses Dumas WBC 10.1 103/ul Normal 4.0-11.0 [facility] Comment on above: Performed By: #### C BC #### [facility] [address] [place] [address] Dr. Ramses Dumas CULTURE URINEon 08-24-2022 CULTURE [...] Tetracycline >=16 R F Normal [facility] Comment on above: Performed By: #### U RCX #### [facility] [address] [place] [address] Dr. Ramses Dumas PROF 14(COMP METB)on 022 Albumin [Mass/Vol] 2.4 g/dL Critically low 3.4-5.0 Th e [facility] Comment on above: Performed By: #### C VDTBH #### [facility] [address] [place] [address] Dr. Ramses Dumas Albumin/Globulin [Mass ratio] 0.7 {ratio} Normal [facility] Comment on above: Performed By: #### C VDTBH #### [facility] [address] [place] [address] Dr. Ramses Dumas ALP [Catalytic activity/Vol] 95 U/L Normal 46-116 [facility] Comment on above: Performed By: #### C VDTBH #### [facility] [address] [place] [address] Dr. Ramses Dumas ALT [Catalytic activity/Vol] 327 U/L Critically high 14-59 [facility] Comment on above: Performed By: #### C VDTBH #### [facility] [address] [place] [address] Dr. Ramses Dumas Anion gap [Moles/Vol] 8.7 mmol/L Normal [facility] Comment on above: Performed By: #### C VDTBH #### [facility] [address] [place] [address] Dr. Ramses Dumas AST [Catalytic activity/Vol] 165 U/L Critically high 15-37 [facility] Comment on above: Performed By: #### C VDTBH #### [facility] [address] [place] [address] Dr. Ramses Dumas Bilirubin [Mass/Vol] 0.4 mg/dL Normal 0.2-1.0 [facility] Comment on above: Performed By: #### C VDTBH #### [facility] [address] [address] [address] Ramses Dumas Calcium [Mass/Vol] 8.0 mg/dL Critically low 8.5-10.1 [facility] Comment on above: Performed By: #### C VDTBH #### [facility] [address] [place] [address] Dr. Ramses Dumas Chloride [Moles/Vol] 108 mmol/L Critically high 98-107 [facility] Comment on above: Performed By: #### C VDTBH #### [facility] [address] [place] [address] Dr. Ramses Dumas CO2 [Moles/Vol] 25.3 mmol/L Normal 21.0-32.0 [facility] Comment on above: Performed By: #### C VDTBH #### [facility] [address] [place] [address] Dr. Ramses Dumas Creatinine [Mass/Vol] 0.70 mg/dL Normal 0.55-1.02 [facility] Comment on above: Performed By: #### C VDTBH #### [facility] [address] [place] [address] Dr. Ramses Dumas EGFR-AF INDONESIAN >60 Normal >=60 [facility] Comment on above: Performed By: #### C VDTBH #### [facility] [address] [place] [address] Dr. Ramses Dumas EGFR-NON AF INDONESIAN >60 Normal >=60 [facility] Comment on above: Performed By: #### C VDTBH #### [facility] [address] [place] [address] Dr. Ramses Dumas Globulin (S) [Mass/Vol] 3.6 g/dL Normal [facility] Comment on above: Performed By: #### C VDTBH #### [facility] [address] [place] [address] Dr. Ramses Dumas Glucose [Mass/Vol] 160 mg/dL Critically high 74-[address] [facility] Comment on above: Performed By: #### C VDTBH #### [facility] [address] [place] [address] Dr. Ramses Dumas Potassium [Moles/Vol] 4.0 mmol/L Normal 3.5-5.1 [facility] Comment on above: Performed By: #### C VDTBH #### [facility] [address] [place] [address] Dr. Ramses Dumas Protein [Mass/Vol] 6.0 g/dL Critically low 6.4-8.2 [facility] Comment on above: Performed By: #### C VDTBH #### [facility] [address] [place] [address] Dr. Ramses Dumas Sodium [Moles/Vol] 138 mmol/L Normal 136-[address] [facility] Comment on above: Performed By: #### C VDTBH #### [facility] [address] [place] [address] Dr. Ramses Dumas Urea nitrogen [Mass/Vol] 6.0 mg/dL Critically low 7.0-18.0 [facility] Comment on above: Performed By: #### C VDTBH #### [facility] [address] [place] [address] Dr. Ramses Dumas Urea nitrogen/Creatinine [Mass ratio] 8.6 mg/mg Normal [facility] Comment on above: Performed By: #### C VDTBH #### [facility] [address] [place] [address] Dr. Ramses Dumas CBC AUTO DIFFon 08-23-2022 BASO # 0.0 103/ul Normal 0.0-0.1 [facility] Comment on above: Performed By: #### U RCX #### [facility] [address] [place] [address] Dr. Ramses Dumas Basophils/100 WBC (Bld) 0.2 % Normal 0.2-2.0 [facility] Comment on above: Performed By: #### U RCX #### [facility] [address] [place] [address] Dr. Ramses Dumas EO # 0.0 103/ul Normal 0.0-0.7 [facility] Comment on above: Performed By: #### U RCX #### [facility] [address] [place] [address] Dr. Ramses Dumas Eosinophils/100 WBC (Bld) 0.1 % Critically low 0.9-7.0 [facility] Comment on above: Performed By: #### U RCX #### [facility] [address] [place] [address] Dr. Ramses Dumas Erythrocyte distribution width (RBC) [Ratio] 13.4 % Normal 11.0-15.0 [facility] Comment on above: Performed By: #### U RCX #### [facility] [address] [place] [address] Dr. Ramses Dumas Hematocrit (Bld) [Volume fraction] 34.1 % Critically low 36.0-48.0 [facility] Comment on above: Performed By: #### U RCX #### [facility] [address] [place] [address] Dr. Ramses Dumas Hemoglobin (Bld) [Mass/Vol] 10.9 g/dL Critically low 12.0-16.0 [facility] Comment on above: Performed By: #### U RCX #### [facility] [address] [place] [address] Dr. Ramses Dumas IG # 0.02 10e3/ul Normal 0.00-0.03 [facility] Comment on above: Performed By: #### U RCX #### [facility] [address] [place] [address] Dr. Ramses Dumas IG % 0.2 % Normal 0.0-0.5 [facility] Comment on above: Performed By: #### U RCX #### [facility] [address] [place] [address] Dr. Ramses Dumas LYMPH # 0.7 103/ul Critically low 1.2-3.[address] [facility] Comment on above: Performed By: #### U RCX #### [facility] [address] [place] [address] Dr. Ramses Dumas Lymphocytes/100 WBC (Bld) 6.9 % Critically low 20.5-60.0 [facility] Comment on above: Performed By: #### U RCX #### [facility] [address] [place] [address] Dr. Ramses Dumas MANUAL DIFF REQ NO Normal [facility] Comment on above: Performed By: #### U RCX #### [facility] [address] [place] [address] Dr. Ramses Dumas MCH (RBC) [Entitic mass] 26.1 pg Critically low 26.7-34.0 [facility] Comment on above: Performed By: #### U RCX #### [facility] [address] [place] [address] Dr. Ramses Dumas MCHC (RBC) [Mass/Vol] 32.0 g/dL Normal 29.9-35.2 [facility] Comment on above: Performed By: #### U RCX #### [facility] [address] [place] [address] Dr. Ramses Dumas MCV (RBC) [Entitic vol] 81.8 fL Normal 81.0-99.0 [facility] Comment on above: Performed By: #### U RCX #### [facility] [address] [place] [address] Dr. Ramses Dumas MONO # 0.6 103/ul Normal 0.3-0.8 [facility] Comment on above: Performed By: #### U RCX #### [facility] [address] [place] [address] Dr. Ramses Dumas Monocytes/100 WBC (Bld) 5.9 % Normal 1.7-12.0 [facility] Comment on above: Performed By: #### U RCX #### [facility] [address] [place] [address] Dr. Ramses Dumas NEUT # 8.2 103/ul Critically high 1.4-6.[address] [facility] Comment on above: Performed By: #### U RCX #### [facility] [address] [place] [address] Dr. Ramses Dumas Neutrophils/100 WBC (Bld) 86.7 % Critically high 43.0-75.0 [facility] Comment on above: Performed By: #### U RCX #### [facility] [address] [place] [address] Dr. Ramses Dumas Platelet mean volume (Bld) [Entitic vol] 9.4 fL Critically low 9.5-13.5 [facility] Comment on above: Performed By: #### U RCX #### [facility] [address] [place] [address] Dr. Ramses Dumas PLT 235 103/ul Normal 150-450 [facility] Comment on above: Performed By: #### U RCX #### [facility] [address] [place] [address] Dr. Ramses Dumas RBC 4.17 106/ul Critically low 4.20-5.40 [facility] Comment on above: Performed By: #### U RCX #### [facility] [address] [place] [address] Dr. Ramses Dumas WBC 9.5 103/ul Normal 4.0-11.0 [facility] Comment on above: Performed By: #### U RCX #### [facility] [address] [place] [address] Dr. Ramses Dumas PROF 14(COMP METB)on 022 Albumin [Mass/Vol] 2.6 g/dL Critically low 3.4-5.0 [facility] Comment on above: Performed By: #### U KJ 24 #### [facility] [address] [place] [address] Dr. Ramses Dumas Albumin/Globulin [Mass ratio] 0.8 {ratio} Normal [facility] Comment on above: Performed By: #### U KJ 24 #### [facility] [address] [place] [address] Dr. Ramses Dumas ALP [Catalytic activity/Vol] 82 U/L Normal 46-116 [facility] Comment on above: Performed By: #### U KJ 24 #### [facility] [address] [place] [address] Dr. Ramses Dumas ALT [Catalytic activity/Vol] 257 U/L Critically high 14-59 [facility] Comment on above: Performed By: #### U KJ 24 #### [facility] [address] [place] [address] Dr. Ramses Dumas Anion gap [Moles/Vol] 10.3 mmol/L Normal Th [facility] Comment on above: Performed By: #### U KJ 24 #### [facility] [address] [address] [address] Ramses Dumas AST [Catalytic activity/Vol] 196 U/L Critically high 15-37 [facility] Comment on above: Performed By: #### U KJ 24 #### [facility] [address] [place] [address] Dr. Ramses Dumas Bilirubin [Mass/Vol] 0.5 mg/dL Normal 0.2-1.0 [facility] Comment on above: Performed By: #### U KJ 24 #### [facility] [address] [place] [address] Dr. Ramses Dumas Calcium [Mass/Vol] 7.8 mg/dL Critically low 8.5-10.1 [facility] Comment on above: Performed By: #### U KJ 24 #### [facility] [address] [place] [address] Dr. Ramses Dumas Chloride [Moles/Vol] 104 mmol/L Normal 98-107 [facility] Comment on above: Performed By: #### U KJ 24 #### [facility] [address] [address] [address] Ramses Dumas CO2 [Moles/Vol] 24.4 mmol/L Normal 21.0-32.0 [facility] Comment on above: Performed By: #### U KJ 24 #### [facility] [address] [place] [address] Dr. Ramses Dumas Creatinine [Mass/Vol] 1.09 mg/dL Critically high 0.55-1.02 [facility] Comment on above: Performed By: #### U KJ 24 #### [facility] [address] [place] [address] Dr. Ramses Dumas EGFR-AF INDONESIAN >60 Normal >=60 [facility] Comment on above: Performed By: #### U KJ 24 #### [facility] [address] [place] [address] Dr. Ramses Dumas EGFR-NON AF INDONESIAN 59 mL/min/1.73m2 Critically low >=60 [facility] Comment on above: Performed By: #### U KJ 24 #### [facility] [address] [address] [address] Ramses Dumas Globulin (S) [Mass/Vol] 3.3 g/dL Normal [facility] Comment on above: Performed By: #### U KJ 24 #### [facility] [address] [place] [address] Dr. Ramses Dumas Glucose [Mass/Vol] 143 mg/dL Critically high 74-106 [facility] Comment on above: Performed By: #### U KJ 24 #### [facility] [address] [place] [address] Dr. Ramses Dumas Potassium [Moles/Vol] 3.7 mmol/L Normal 3.5-5.1 [facility] Comment on above: Performed By: #### U KJ 24 #### [facility] [address] [place] [address] Dr. Ramses Dumas Protein [Mass/Vol] 5.9 g/dL Critically low 6.4-8.2 [facility] Comment on above: Performed By: #### U KJ 24 #### [facility] [address] [place] [address] Dr. Ramses Dumas Sodium [Moles/Vol] 135 mmol/L Critically low 136-145 Th [facility] Comment on above: Performed By: #### U KJ 24 #### [facility] [address] [place] [address] Dr. Ramses Dumas Urea nitrogen [Mass/Vol] 10.0 mg/dL Normal 7.0-18.0 [facility] Comment on above: Performed By: #### U KJ 24 #### [facility] [address] [place] [address] Dr. Ramses Dumas Urea nitrogen/Creatinine [Mass ratio] 9.2 mg/mg Normal [facility] Comment on above: Performed By: #### U KJ 24 #### [facility] [address] [place] [address] Dr. Ramses Dumas BLOOD CULTURE ID PANELon A. baumannii Not detected Normal NOT DETECTED [facility] Comment on above: Performed By: #### C VDTBH #### [facility] [address] [place] [address] Dr. Ramses Dumas Bacteriodes fragilis Not detected Normal NOT DETECTED [facility] Comment on above: Performed By: #### C VDTBH #### [facility] [address] [place] [address] Dr. Ramses SHEPPARDD CONTROLS PASSED Normal [facility] Comment on above: Performed By: #### C VDTBH #### [facility] [address] [place] [address] Dr. Ramses SHEPPARDDBTHD BLOOD CULTURE BOTTLE INFORMATION Normal [facility] Comment on above: Performed By: #### C VDTBH #### [facility] [address] [place] [address] Dr. Ramses Dumas BCIDHD1 ANTIMICROBIAL RESISTANCE GENES [facility] Comment on above: Performed By: #### C VDTBH #### [facility] [address] [place] [address] Dr. Ramses Dumas BCIDHD2 SEE BELOW [place] [facility] Comment on above: Result Comment: Note : Antimicrobial resitance can occur via multiple mechanisms. A Not Detected result for the [employer] antomicrobial resistance gene assays does not indicate antimicrobial susceptibility. Subculturing is required for species identification and susceptibility testing of isolates. Performed By: #### C VDTBH #### [facility] [address] [place] [address] Dr. Ramses Dumas BCIDHD3 Positive [facility] Comment on above: Performed By: #### C VDTBH #### [facility] [address] [place] [address] Dr. Ramses Dumas BCIDHD4 Negative [facility] Comment on above: Performed By: #### C VDTBH #### [facility] [address] [place] [address] Dr. Ramses Dumas BCIDHD5 YEAST Normal [facility] Comment on above: Performed By: #### C VDTBH #### [facility] [address] [place] [address] Dr. Ramses Garcia Set: Set 1 Normal [facility] Comment on above: Performed By: #### C VDTBH #### [facility] [address] [place] [address] Dr. Ramses Dumas Bottle: Pediatric Normal [facility] Comment on above: Performed By: #### C VDTBH #### [facility] [address] [place] [address] Dr. Ramses Vincent. neoformans/gattii Not detected Normal NOT DETECTED [facility] Comment on above: Performed By: #### C VDTBH #### [facility] [address] [place] [address] Dr. Ramses Dumas Kim albicans Not detected Normal NOT DETECTED [facility] Comment on above: Performed By: #### C VDTBH #### [facility] [address] [place] [address] Dr. Ramses Dumas Kim auris Not detected Normal NOT DETECTED [facility] Comment on above: Performed By: #### C VDTBH #### [facility] [address] [place] [address] Dr. Ramses Dumas Kim glabrata Not detected Normal NOT DETECTED [facility] Comment on above: Performed By: #### C VDTBH #### [facility] [address] [place] [address] Dr. Ramses Dumas Kim Krusei Not detected Normal NOT DETECTED [facility] Comment on above: Performed By: #### C VDTBH #### [facility] [address] [place] [address] Dr. Ramses Dumas Kim Parapsilosis Not detected Normal NOT DETECTED [facility] Comment on above: Performed By: #### C VDTBH #### [facility] [address] [place] [address] Dr. Ramses Dumas Kim Tropicalis Not detected Normal NOT DETECTED [facility] Comment on above: Performed By: #### C VDTBH #### [facility] [address] [place] [address] Dr. Ramses Dumas CTX-M Resistant Gene Not Applicable Normal NOT DETECTE D [facility] Comment on above: Performed By: #### C VDTBH #### [facility] [address] [place] [address] Dr. Ramses Dumas E. Cloacae complex Not detected Normal NOT DETECTED [facility] Comment on above: Performed By: #### C VDTBH #### [facility] [address] [place] [address] Dr. Ramses Dumas E. faecalis Not detected Normal NOT DETECTED [facility] Comment on above: Performed By: #### C VDTBH #### [facility] [address] [place] [address] Dr. Ramses Dumas E. faecium Not detected Normal NOT DETECTED [facility] Comment on above: Performed By: #### C VDTBH #### [facility] [address] [place] [address] Dr. Ramses Dumas Enterobacteriaceae Not detected Normal NOT DETECTED [facility] Comment on above: Performed By: #### C VDTBH #### [facility] [address] [place] [address] Dr. Ramses Dumas Escherichia coli Not detected Normal NOT DETECTED [facility] Comment on above: Performed By: #### C VDTBH #### [facility] [address] [place] [address] Dr. Ramses Dumas H. influenzae Not detected Normal NOT DETECTED [facility] Comment on above: Performed By: #### C VDTBH #### [facility] [address] [place] [address] Dr. Ramses Dumas IMP Resistant Gene Not Applicable Normal NOT DETECTED [facility] Comment on above: Performed By: #### C VDTBH #### [facility] [address] [place] [address] Dr. Ramses Dumas K. oxytoca Not detected Normal NOT DETECTED [facility] Comment on above: Performed By: #### C VDTBH #### [facility] [address] [place] [address] Dr. Ramses Dumas K. pneumoniae Not detected Normal NOT DETECTED [facility] Comment on above: Performed By: #### C VDTBH #### [facility] [address] [place] [address] Dr. Ramses Dumas Klebsiella aerogenes Not detected Normal NOT DETECTED [facility] Comment on above: Performed By: #### C VDTBH #### [facility] [address] [place] [address] Dr. Ramses Dumas KPC Resistant Gene Not detected Normal NOT DETECTED [facility] Comment on above: Performed By: #### C VDTBH #### [facility] [address] [place] [address] Dr. Ramses Dumas List. monocytogenes Not detected Normal NOT DETECTED [facility] Comment on above: Performed By: #### C VDTBH #### [facility] [address] [place] [address] Dr. Ramses Dumas Mcr-1 Resistant Gene Not Applicable Normal NOT DETECTE D [facility] Comment on above: Performed By: #### C VDTBH #### [facility] [address] [place] [address] Dr. Ramses Dumas mecA/C Not Applicable Normal NOT DETECTED [facility] Comment on above: Performed By: #### C VDTBH #### [facility] [address] [place] [address] Dr. Ramses Dumas mecA/C MREJ Not Applicable Normal NOT DETECTED [facility] Comment on above: Performed By: #### C VDTBH #### [facility] [address] [place] [address] Dr. Ramses Dumas N. meningitidis Not detected Normal NOT DETECTED [facility] Comment on above: Performed By: #### C VDTBH #### [facility] [address] [place] [address] Dr. Ramses Dumas NDM Resistant Gene Not Applicable Normal NOT DETECTED [facility] Comment on above: Performed By: #### C VDTBH #### [facility] [address] [place] [address] Dr. Ramses Dumas Oxa-48-like Not Applicable Normal NOT DETECTED [facility] Comment on above: Performed By: #### C VDTBH #### [facility] [address] [place] [address] Dr. Ramses Dumas Proteus Not detected Normal NOT DETECTED [facility] Comment on above: Performed By: #### C VDTBH #### [facility] [address] [place] [address] Dr. Ramses Dumas Pseud. aeruginosa Not detected Normal NOT DETECTED [facility] Comment on above: Performed By: #### C VDTBH #### [facility] [address] [place] [address] Dr. Ramses Dumas S. maltophilia Not detected Normal NOT DETECTED [facility] Comment on above: Performed By: #### C VDTBH #### [facility] [address] [place] [address] Dr. Ramses Dumas Salmonella Not detected Normal NOT DETECTED [facility] Comment on above: Performed By: #### C VDTBH #### [facility] [address] [place] [address] Dr. Ramses Dumas Seratia marcescens Not detected Normal NOT DETECTED [facility] Comment on above: Performed By: #### C VDTBH #### [facility] [address] [place] [address] Dr. Ramses Dumas Site: unknown/not given Normal [facility] Comment on above: Performed By: #### C VDTBH #### [facility] [address] [place] [address] Dr. Ramses Dumas Stapphillip. aureus Not detected Normal NOT DETECTED [facility] Comment on above: Performed By: #### C VDTBH #### [facility] [address] [place] [address] Dr. Ramses Dumas Staph. epidermidis Not detected Normal NOT DETECTED [facility] Comment on above: Performed By: #### C VDTBH #### [facility] [address] [place] [address] Dr. Ramses Dumas Staph. lugdunensis Not detected Normal NOT DETECTED [facility] Comment on above: Performed By: #### C VDTBH #### [facility] [address] [place] [address] Dr. Ramses Dumas Staphylococcus Not detected Normal NOT DETECTED [facility] Comment on above: Performed By: #### C VDTBH #### [facility] [address] [place] [address] Dr. Ramses Dumas Strep. agalactiae Detected Critically abnormal NOT DETECTED [facility] Comment on above: Performed By: #### C VDTBH #### [facility] [address] [place] [address] Dr. Ramses Dumas Strep. pneumoniae Not detected Normal NOT DETECTED [facility] Comment on above: Performed By: #### C VDTBH #### [facility] [address] [place] [address] Dr. Ramses Dumas Strep. pyogenes Not detected Normal NOT DETECTED [facility] Comment on above: Performed By: #### C VDTBH #### [facility] [address] [place] [address] Dr. Ramses Dumas Streptococcus Detected Critically abnormal NOT DETECTED [facility] Comment on above: Performed By: #### C VDTBH #### [facility] [address] [place] [address] Dr. Ramses Dumas Efrain/B Resist. Gene Not detected Normal NOT DETECTED [facility] Comment on above: Performed By: #### C VDTBH #### [facility] [address] [place] [address] Dr. Ramses Dumas VIM Resistant Gene Not Applicable Normal NOT DETECTED [facility] Comment on above: Performed By: #### C VDTBH #### [facility] [address] [place] [address] Dr. Ramses Dumas CBC AUTO DIFFon 08-22-2022 BASO # 0.1 103/ul Normal 0.0-0.1 [facility] Comment on above: Performed By: #### U KJ 24 #### [facility] [address] [place] [address] Dr. Ramses Dumas Basophils/100 WBC (Bld) 0.7 % Normal 0.2-2.0 [facility] Comment on above: Performed By: #### U KJ 24 #### [facility] [address] [place] [address] Dr. Ramses Dumas EO # 0.1 103/ul Normal 0.0-0.7 [facility] Comment on above: Performed By: #### U KJ 24 #### [facility] [address] [place] [address] Dr. Ramses Dumas Eosinophils/100 WBC (Bld) 1.7 % Normal 0.9-7.0 [facility] Comment on above: Performed By: #### U KJ 24 #### [facility] [address] [place] [address] Dr. Ramses Dumas Erythrocyte distribution width (RBC) [Ratio] 13.2 % Normal 11.0-15.0 [facility] Comment on above: Performed By: #### U KJ 24 #### [facility] [address] [place] [address] Dr. Ramses Dumas Hematocrit (Bld) [Volume fraction] 39.8 % Normal 36.0-48.0 [facility] Comment on above: Performed By: #### U KJ 24 #### [facility] [address] [place] [address] Dr. Ramses Dumas Hemoglobin (Bld) [Mass/Vol] 12.9 g/dL Normal 12.0-16.0 [facility] Comment on above: Performed By: #### U KJ 24 #### [facility] [address] [place] [address] Dr. Ramses Dumas IG # 0.02 10e3/ul Normal 0.00-0.03 [facility] [facility] Comment on above: Performed By: #### U KJ 24 #### [facility] [address] [place] [address] Dr. Ramses Dumas IG % 0.2 % Normal 0.0-0.5 [facility] Comment on above: Performed By: #### U KJ 24 #### [facility] [address] [address] [address] Ramses Dumas LYMPH # 3.2 103/ul Normal 1.2-3.8 [facility] Comment on above: Performed By: #### U KJ 24 #### [facility] [address] [address] [address] Ramses Dumas Lymphocytes/100 WBC (Bld) 40.0 % Normal 20.5-60.0 [facility] Comment on above: Performed By: #### U KJ 24 #### [facility] [address] [place] [address] Dr. Ramses Dumas MANUAL DIFF REQ NO Normal [facility] Comment on above: Performed By: #### U KJ 24 #### [facility] [address] [place] [address] Dr. Ramses Dumas MCH (RBC) [Entitic mass] 26.6 pg Critically low 26.7-34.0 [facility] Comment on above: Performed By: #### U KJ 24 #### [facility] [address] [place] [address] Dr. Ramses Dumas MCHC (RBC) [Mass/Vol] 32.4 g/dL Normal 29.9-35.2 [facility] Comment on above: Performed By: #### U KJ 24 #### [facility] [address] [place] [address] Dr. Ramses Dumas MCV (RBC) [Entitic vol] 82.1 fL Normal 81.0-99.0 [facility] Comment on above: Performed By: #### U KJ 24 #### [facility] [address] [place] [address] Dr. Ramses Dumas MONO # 0.6 103/ul Normal 0.3-0.8 [facility] Comment on above: Performed By: #### U KJ 24 #### [facility] [address] [place] [address] Dr. Ramses Dumas Monocytes/100 WBC (Bld) 7.5 % Normal 1.7-12.0 [facility] Comment on above: Performed By: #### U KJ 24 #### [facility] [address] [address] [address] Ramses Dumas NEUT # 4.0 103/ul Normal 1.4-6.5 [facility] Comment on above: Performed By: #### U KJ 24 #### [facility] [address] [address] [address] Ramses Dumas Neutrophils/100 WBC (Bld) 49.9 % Normal 43.0-75.0 [facility] Comment on above: Performed By: #### U KJ 24 #### [facility] [address] [address] [address] Ramses Dumas Platelet mean volume (Bld) [Entitic vol] 9.3 fL Critically low 9.5-13.5 [facility] Comment on above: Performed By: #### U KJ 24 #### [facility] [address] [place] [address] Dr. Ramses Dumas PLT 354 103/ul Normal 150-450 [facility] Comment on above: Performed By: #### U KJ 24 #### [facility] [address] [place] [address] Dr. Ramses Dumas RBC 4.85 106/ul Normal 4.20-5.40 [facility] Comment on above: Performed By: #### U KJ 24 #### [facility] [address] [place] [address] Dr. Ramses Dumas WBC 8.1 103/ul Normal 4.0-11.0 [facility] Comment on above: Performed By: #### U KJ 24 #### [facility] [address] [place] [address] ABD/PELVIS WO CONon [...] KESHIA IRIZARRY Date: 2022-08-22 07:04 Normal [facility] Covid-19 PCR (CVDTB)on SARS-CoV-2 (COVID-19) RNA FRANCESCA+probe Ql (Unsp spec) Not detected Normal NOT DETECTED [facility] Comment on above: [...] for this test is supported by the Workers Compensation Adjuster of Health and Human Service's declaration that [...] used). Performed By: #### C MP #### [facility] [address] [place] [address] Dr. Ramses Dumas ER URINE PROFILEon 2 Bilirubin Ql (U) Negative Normal NEGATIVE [facility] Comment on above: Performed By: #### U RCX #### [facility] [address] [address] [address] Ramses Dumas Clarity (U) CLEAR Normal CLEAR [facility] Comment on above: Performed By: #### U RCX #### [facility] [address] [address] [address] Ramses Dumas Color (U) LT. YELLOW Normal YELLOW [facility] Comment on above: Performed By: #### U RCX #### [facility] [address] [address] [address] Ramses DELEON A micrscopic examination will be performed if indicated. Normal [facility] Comment on above: Performed By: #### U RCX #### [facility] [address] [place] [address] Dr. Ramses Dumas Glucose Ql (U) Negative Normal NEGATIVE [facility] Comment on above: Performed By: #### U RCX #### [facility] [address] [place] [address] Dr. Ramses Dumas Hemoglobin Ql (U) SMALL Abnormal NEGATIVE [facility] Comment on above: Performed By: #### U RCX #### [facility] [address] [place] [address] Dr. Ramses Dumas Ketones Ql (U) Negative Normal NEGATIVE [facility] Comment on above: Performed By: #### U RCX #### [facility] [address] [address] [address] Ramses Dumas LEUKOCYTES SMALL Abnormal NEGATIVE [facility] Comment on above: Performed By: #### U RCX #### [facility] [address] [place] [address] Dr. Ramses Dumas Nitrite Ql (U) Negative Normal NEGATIVE [facility] Comment on above: Performed By: #### U RCX #### [facility] [address] [place] [address] Dr. Ramses Dumas pH (U) 7.0 [pH] Normal 5-9 [facility] Comment on above: Performed By: #### U RCX #### [facility] [address] [address] [address] Ramses Dumas Protein (U) [Mass/Vol] 30 mg/dL Abnormal NEGATIVE/ TRACE [facility] Comment on above: Performed By: #### U RCX #### [facility] [address] [address] [address] Ramses Dumas SPEC GRAVITY 1.020 Normal 1.005-<=1.02 5 [facility] Comment on above: Performed By: #### U RCX #### [facility] [address] [address] [address] Ramses Dumas UR MICRO IND INDICATED Normal [facility] Comment on above: Performed By: #### U RCX #### [facility] [address] [place] [address] Dr. Ramses Dumas Urobilinogen Qn (U) 0.2 {Lucero'U}/dL Normal 0.2 - 1. 0 [facility] Comment on above: Performed By: #### U RCX #### [facility] [address] [address] [address] Ramses Dumas LACTATE/LACTIC ACIDon 2021 Lactate [Moles/Vol] 2.3 mmol/L Critically high 0.4-1.9 [facility] Comment on above: Performed By: #### U RCX #### [facility] [address] [place] [address] Dr. Ramses Dumas URon 08-22-2022 , QUAL Negative Normal NEGATIVE [facility] Comment on above: Performed By: #### U RCX #### [facility] [address] [address] [address] Ramses Dumas PROF 14(COMP METB)on 022 Albumin [Mass/Vol] 3.5 g/dL Normal 3.4-5.[address] [facility] Comment on above: Performed By: #### U RCX #### [facility] [address] [place] [address] Dr. Ramses Dumas Albumin/Globulin [Mass ratio] 0.9 {ratio} Normal [facility] Comment on above: Performed By: #### U RCX #### [facility] [address] [place] [address] Dr. Ramses Dumas ALP [Catalytic activity/Vol] 92 U/L Normal 46-116 [facility] Comment on above: Performed By: #### U RCX #### [facility] [address] [address] [address] Ramses Dumas ALT [Catalytic activity/Vol] 139 U/L Critically high 14-59 [facility] Comment on above: Performed By: #### U RCX #### [facility] [address] [address] [address] Ramses Dumas Anion gap [Moles/Vol] 10.2 mmol/L Normal [facility] Comment on above: Performed By: #### U RCX #### [facility] [address] [address] [address] Ramses Dumas AST [Catalytic activity/Vol] 112 U/L Critically high 15-37 [facility] Comment on above: Performed By: #### U RCX #### [facility] [address] [address] [address] Ramses Dumas Bilirubin [Mass/Vol] 0.2 mg/dL Normal 0.2-1.0 [facility] Comment on above: Performed By: #### U RCX #### [facility] [address] [address] [address] Ramses Dumas Calcium [Mass/Vol] 8.8 mg/dL Normal 8.5-10.[address] [facility] Comment on above: Performed By: #### U RCX #### [facility] [address] [address] [address] Ramses Dumas Chloride [Moles/Vol] 105 mmol/L Normal 98-107 [facility] Comment on above: Performed By: #### U RCX #### [facility] [address] [address] [address] Ramses Dumas CO2 [Moles/Vol] 26.3 mmol/L Normal 21.0-32.0 [facility] Comment on above: Performed By: #### U RCX #### [facility] [address] [address] [address] Ramses Dumas Creatinine [Mass/Vol] 0.95 mg/dL Normal 0.55-1.02 [facility] Comment on above: Performed By: #### U RCX #### [facility] [address] [address] [address] Ramses Dumas EGFR-AF INDONESIAN >60 Normal >=60 [facility] Comment on above: Performed By: #### U RCX #### [facility] [address] [address] [address] Ramses Dumas EGFR-NON AF INDONESIAN >60 Normal >=60 [facility] Comment on above: Performed By: #### U RCX #### [facility] [address] [place] [address] Dr. Ramses Dumas Globulin (S) [Mass/Vol] 3.9 g/dL Normal [facility] Comment on above: Performed By: #### U RCX #### [facility] [address] [address] [address] Ramses Dumas Glucose [Mass/Vol] 137 mg/dL Critically high 74-[address] [facility] Comment on above: Performed By: #### U RCX #### [facility] [address] [place] [address] Dr. Ramses Dumas Potassium [Moles/Vol] 3.5 mmol/L Normal 3.5-5.1 [facility] Comment on above: Performed By: #### U RCX #### [facility] [address] [address] [address] Ramses Dumas Protein [Mass/Vol] 7.4 g/dL Normal 6.4-8.2 [facility] Comment on above: Performed By: #### U RCX #### [facility] [address] [address] [address] Ramses Dumas Sodium [Moles/Vol] 138 mmol/L Normal 136-145 [facility] Comment on above: Performed By: #### U RCX #### [facility] [address] [place] [address] Dr. Ramses Dumas Urea nitrogen [Mass/Vol] 11.0 mg/dL Normal 7.0-18.0 [facility] Comment on above: Performed By: #### U RCX #### [facility] [address] [place] [address] Dr. Ramses Dumas Urea nitrogen/Creatinine [Mass ratio] 11.6 mg/mg Normal [facility] Comment on above: Performed By: #### U RCX #### [facility] [address] [place] [address] Dr. Ramses Dumas URINE MICROSCOPIC ONLYon BACTERIA LARGE Abnormal NONE SEEN [facility] Comment on above: Performed By: #### U RCX #### [facility] [address] [place] [address] Dr. Ramses Dumas Bacteria identified Cx Nom (U) CX ALREADY ORDERED Normal [facility] Comment on above: Performed By: #### U RCX #### [facility] [address] [place] [address] Dr. Ramses Dumas CAST NONE SEEN Normal NONE SEEN [facility] Comment on above: Performed By: #### U RCX #### [facility] [address] [place] [address] Dr. Ramses Dumas Crystals LM Nom (Urine sed) NONE SEEN Normal NONE SEEN [facility] Comment on above: Performed By: #### U RCX #### [facility] [address] [place] [address] Dr. Ramses Dumas Epithelial cells LM Ql (Urine sed) MANY Abnormal NONE SEEN /RARE [facility] Comment on above: Performed By: #### U RCX #### [facility] [address] [place] [address] Dr. Ramses Dumas MUCOUS NONE SEEN Normal NONE SEEN [facility] Comment on above: Performed By: #### U RCX #### [facility] [address] [place] [address] Dr. Ramses Dumas RBC 5-10 Abnormal 0-2 [facility] Comment on above: Performed By: #### U RCX #### [facility] [address] [place] [address] Dr. Ramses Dumas WBC 50-75 Abnormal NONE SEEN [facility] Comment on above: Performed By: #### U RCX #### [facility] [address] [place] [address] Dr. Ramses Dumas CULTURE URINEon 08-15-2022 CULTURE [...] F Tetracycline >=16 R F Normal [facility] Comment on above: Performed By: #### U RCX #### [facility] [address] [place] [address] Dr. Ramses Dumas ACETAMINOPHENon 08-13-2022 Acetaminophen [Mass/Vol] ug/mL Critically low 10.0-30.0 [facility] Comment on above: Performed By: #### U RCX #### [facility] [address] [place] [address] Dr. Ramses Dumas CBC AUTO DIFFon 08-13-2022 BASO # 0.1 103/ul Normal 0.0-0.1 [facility] Comment on above: Performed By: #### C VDTBH #### [facility] [address] [place] [address] Dr. Ramses Dumas Basophils/100 WBC (Bld) 0.8 % Normal 0.2-2.0 [facility] Comment on above: Performed By: #### C VDTBH #### [facility] [address] [place] [address] Dr. Ramses Dumas EO # 0.1 103/ul Normal 0.0-0.7 [facility] Comment on above: Performed By: #### C VDTBH #### [facility] [address] [place] [address] Dr. Ramses Dumas Eosinophils/100 WBC (Bld) 1.6 % Normal 0.9-7.0 [facility] Comment on above: Performed By: #### C VDTBH #### [facility] [address] [place] [address] Dr. Ramses Dumas Erythrocyte distribution width (RBC) [Ratio] 13.3 % Normal 11.0-15.0 [facility] Comment on above: Performed By: #### C VDTBH #### [facility] [address] [place] [address] Dr. Ramses Dumas Hematocrit (Bld) [Volume fraction] 40.6 % Normal 36.0-48.0 [facility] Comment on above: Performed By: #### C VDTBH #### [facility] [address] [place] [address] Dr. Ramses Dumas Hemoglobin (Bld) [Mass/Vol] 13.2 g/dL Normal 12.0-16.0 [facility] Comment on above: Performed By: #### C VDTBH #### [facility] [address] [place] [address] Dr. Ramses Dumas IG # 0.01 10e3/ul Normal 0.00-0.03 [facility] Comment on above: Performed By: #### C VDTBH #### [facility] [address] [place] [address] Dr. Ramses Dumas IG % 0.2 % Normal 0.0-0.5 [facility] Comment on above: Performed By: #### C VDTBH #### [facility] [address] [place] [address] Dr. Ramses Dumas LYMPH # 2.4 103/ul Normal 1.2-3.8 [facility] Comment on above: Performed By: #### C VDTBH #### [facility] [address] [place] [address] Dr. Ramses Dumas Lymphocytes/100 WBC (Bld) 37.7 % Normal 20.5-60.0 [facility] Comment on above: Performed By: #### C VDTBH #### [facility] [address] [place] [address] Dr. Ramses Dumas MANUAL DIFF REQ NO Normal [facility] Comment on above: Performed By: #### C VDTBH #### [facility] [address] [place] [address] Dr. Ramses Dumas MCH (RBC) [Entitic mass] 26.7 pg Normal 26.7-34.0 [facility] Comment on above: Performed By: #### C VDTBH #### [facility] [address] [place] [address] Dr. Ramses Dumas MCHC (RBC) [Mass/Vol] 32.5 g/dL Normal 29.9-35.2 [facility] Comment on above: Performed By: #### C VDTBH #### [facility] [address] [place] [address] Dr. Ramses Dumas MCV (RBC) [Entitic vol] 82.0 fL Normal 81.0-99.0 [facility] Comment on above: Performed By: #### C VDTBH #### [facility] [address] [place] [address] Dr. Ramses Dumas MONO # 0.6 103/ul Normal 0.3-0.8 [facility] Comment on above: Performed By: #### C VDTBH #### [facility] [address] [place] [address] Dr. Ramses Dumas Monocytes/100 WBC (Bld) 8.6 % Normal 1.7-12.0 [facility] Comment on above: Performed By: #### C VDTBH #### [facility] [address] [place] [address] Dr. Ramses Dumas NEUT # 3.3 103/ul Normal 1.4-6.5 [facility] Comment on above: Performed By: #### C VDTBH #### [facility] [address] [place] [address] Dr. Ramses Dumas Neutrophils/100 WBC (Bld) 51.1 % Normal 43.0-75.0 [facility] Comment on above: Performed By: #### C VDTBH #### [facility] [address] [address] [address] Ramses Dumas Platelet mean volume (Bld) [Entitic vol] 8.7 fL Critically low 9.5-13.5 [facility] Comment on above: Performed By: #### C VDTBH #### [facility] [address] [address] [address] Ramses Dumas PLT 409 103/ul Normal 150-450 [facility] Comment on above: Performed By: #### C VDTBH #### [facility] [address] [address] [address] Ramses Dumas RBC 4.95 106/ul Normal 4.20-5.40 [facility] Comment on above: Performed By: #### C VDTBH #### [facility] [address] [place] [address] Dr. Ramses Dumas WBC 6.4 103/ul Normal 4.0-11.0 [facility] Comment on above: Performed By: #### C VDTBH #### [facility] [address] [address] [address] Ramses Dumas Covid-19 PCR ([facility])on 07-20 SARS-CoV-2 (COVID-19) RNA FRANCESCA+probe Ql (Unsp spec) Not detected Normal NOT DETECTED [facility] Comment on above: [...] for this test is supported by the Workers Compensation Adjuster of Health and Human Service's declaration that [...] used). Performed By: #### C VDTBH #### [facility] [address] [place] [address] Dr. Ramses Dumas DRUG SCREEN RAPID (URINE)on 08-13-2022 AMP Negative Normal NEGATIVE [facility] Comment on above: Performed By: #### C BC #### [facility] [address] [place] [address] Dr. Ramses Dumas BAR Negative Normal NEGATIVE [facility] Comment on above: Performed By: #### C BC #### [facility] [address] [place] [address] Dr. Ramses Dumas BUP Negative Normal NEGATIVE [facility] Comment on above: Performed By: #### C BC #### [facility] [address] [place] [address] Dr. Ramses Dumas BZO Negative Normal NEGATIVE [facility] Comment on above: Performed By: #### C BC #### [facility] [address] [place] [address] Dr. Ramses Dumas ODILIA Negative Normal NEGATIVE [facility] Comment on above: Performed By: #### C BC #### [facility] [address] [place] [address] Dr. Ramses Dumas CUT-OFFS SEE BELOW Normal [facility] Comment on above: [...] ng/mL Performed By: #### C BC #### [facility] [address] [place] [address] Dr. Ramses Dumas DRUG CUT HEADER DRUG CLASS TEST SYSTEM CUT-OFF CONCENTRATIONS ARE FOLLOWS: Normal [facility] Comment on above: Performed By: #### C BC #### [facility] [address] [place] [address] Dr. Ramses Dumas mAMP Negative Normal NEGATIVE [facility] Comment on above: Performed By: #### C BC #### [facility] [address] [place] [address] Dr. Ramses Dumas MTD Negative Normal NEGATIVE [facility] Comment on above: Performed By: #### C BC #### [facility] [address] [place] [address] Dr. Ramses Dumas OPI Negative Normal NEGATIVE [facility] Comment on above: Performed By: #### C BC #### [facility] [address] [place] [address] Dr. Ramses Dumas OXY Negative Normal NEGATIVE [facility] Comment on above: Performed By: #### C BC #### [facility] [address] [place] [address] Dr. Ramses Dumas PCP Negative Normal NEGATIVE [facility] Comment on above: Performed By: #### C BC #### [facility] [address] [place] [address] Dr. Ramses Dumas PPX Negative Normal NEGATIVE [facility] Comment on above: Performed By: #### C BC #### [facility] [address] [place] [address] Dr. Ramses Dumas TCA Negative Normal NEGATIVE [facility] Comment on above: Performed By: #### C BC #### [facility] [address] [place] [address] Dr. Ramses Dumas THC Negative Normal NEGATIVE [facility] Comment on above: Performed By: #### C BC #### [facility] [address] [place] [address] Dr. Ramses Dumas ER URINE PROFILEon 2 Bilirubin Ql (U) Negative Normal NEGATIVE [facility] Comment on above: Performed By: #### C BC #### [facility] [address] [place] [address] Dr. Ramses Dumas Clarity (U) CLEAR Normal CLEAR [facility] Comment on above: Performed By: #### C BC #### [facility] [address] [place] [address] Dr. Ramses Dumas Color (U) LT. YELLOW Normal YELLOW [facility] Comment on above: Performed By: #### C BC #### [facility] [address] [place] [address] Dr. Ramses DELEON A micrscopic examination will be performed if indicated. Normal [facility] Comment on above: Performed By: #### C BC #### [facility] [address] [place] [address] Dr. Ramses Dumas Glucose Ql (U) Negative Normal NEGATIVE [facility] Comment on above: Performed By: #### C BC #### [facility] [address] [place] [address] Dr. Ramses Dumas Hemoglobin Ql (U) LARGE Abnormal NEGATIVE [facility] Comment on above: Performed By: #### C BC #### [facility] [address] [place] [address] Dr. Ramses Dumas Ketones Ql (U) Negative Normal NEGATIVE [facility] Comment on above: Performed By: #### C BC #### [facility] [address] [place] [address] Dr. Ramses Dumas LEUKOCYTES LARGE Abnormal NEGATIVE [facility] Comment on above: Performed By: #### C BC #### [facility] [address] [place] [address] Dr. Ramses Dumas Nitrite Ql (U) Positive Abnormal NEGATIVE [facility] Comment on above: Performed By: #### C BC #### [facility] [address] [place] [address] Dr. Ramses Dumas pH (U) 6.0 [pH] Normal 5-9 [facility] Comment on above: Performed By: #### C BC #### [facility] [address] [place] [address] Dr. Ramses Dumas Protein (U) [Mass/Vol] 30 mg/dL Abnormal NEGATIVE/ TRACE [facility] Comment on above: Performed By: #### C BC #### [facility] [address] [place] [address] Dr. Ramses Dumas SPEC GRAVITY >=1.030 Abnormal 1.005-<=1.02 5 [facility] Comment on above: Performed By: #### C BC #### [facility] [address] [place] [address] Dr. Ramses Dumas UR MICRO IND INDICATED Normal [facility] Comment on above: Performed By: #### C BC #### [facility] [address] [address] [address] Ramses Dumas Urobilinogen Qn (U) 0.2 {Lucero'U}/dL Normal 0.2 - 1. 0 [facility] Comment on above: Performed By: #### C BC #### [facility] [address] [place] [address] Dr. Ramses Dumas ETHANOL (BLD ALC)on 08-13-20 22 ALC NOTE NOTE: 80 mg/dl is th e legal limit for a blood alcohol level Normal [facility] Comment on above: Performed By: #### B LDCX2 #### [facility] [address] [place] [address] Dr. Ramses Dumas Ethanol [Mass/Vol] mg/dL Normal [facility] Comment on above: Performed By: #### B LDCX2 #### [facility] [address] [place] [address] Dr. Ramses Dumas URon 08-13-2022 , QUAL Negative Normal NEGATIVE [facility] Comment on above: Performed By: #### C BC #### [facility] [address] [place] [address] Dr. Ramses Dumas PROF 14(COMP METB)on 022 Albumin [Mass/Vol] 3.8 g/dL Normal 3.4-5.[address] [facility] Comment on above: Performed By: #### U RCX #### [facility] [address] [place] [address] Dr. Ramses Dumas Albumin/Globulin [Mass ratio] 0.9 {ratio} Normal [facility] Comment on above: Performed By: #### U RCX #### [facility] [address] [address] [address] Ramses Dumas ALP [Catalytic activity/Vol] 82 U/L Normal 46-116 [facility] Comment on above: Performed By: #### U RCX #### [facility] [address] [address] [address] Ramses Dumas ALT [Catalytic activity/Vol] 41 U/L Normal 14-59 [facility] Comment on above: Performed By: #### U RCX #### [facility] [address] [address] [address] Ramses Dumas Anion gap [Moles/Vol] 9.3 mmol/L Normal [facility] Comment on above: Performed By: #### U RCX #### [facility] [address] [address] [address] Ramses Dumas AST [Catalytic activity/Vol] 21 U/L Normal 15-37 [facility] Comment on above: Performed By: #### U RCX #### [facility] [address] [address] [address] Ramses Dumas Bilirubin [Mass/Vol] 0.3 mg/dL Normal 0.2-1.0 [facility] Comment on above: Performed By: #### U RCX #### [facility] [address] [address] [address] Ramses Dumas Calcium [Mass/Vol] 8.9 mg/dL Normal 8.5-10.[address] [facility] Comment on above: Performed By: #### U RCX #### [facility] [address] [address] [address] Ramses Dumas Chloride [Moles/Vol] 105 mmol/L Normal 98-107 [facility] Comment on above: Performed By: #### U RCX #### [facility] [address] [address] [address] Ramses Dumas CO2 [Moles/Vol] 28.5 mmol/L Normal 21.0-32.0 [facility] Comment on above: Performed By: #### U RCX #### [facility] [address] [address] [address] Ramses Dumas Creatinine [Mass/Vol] 0.81 mg/dL Normal 0.55-1.02 [facility] Comment on above: Performed By: #### U RCX #### [facility] [address] [address] [address] Ramses Dumas EGFR-AF INDONESIAN >60 Normal >=60 [facility] Comment on above: Performed By: #### U RCX #### [facility] [address] [address] [address] Ramses Dumas EGFR-NON AF INDONESIAN >60 Normal >=60 [facility] Comment on above: Performed By: #### U RCX #### [facility] [address] [address] [address] Ramses Dumas Globulin (S) [Mass/Vol] 4.1 g/dL Normal [facility] Comment on above: Performed By: #### U RCX #### [facility] [address] [address] [address] Ramses Dumas Glucose [Mass/Vol] 100 mg/dL Normal 74-106 [facility] Comment on above: Performed By: #### U RCX #### [facility] [address] [address] [address] Ramses Dumas Potassium [Moles/Vol] 3.8 mmol/L Normal 3.5-5.1 [facility] Comment on above: Performed By: #### U RCX #### [facility] [address] [address] [address] Ramses Dumas Protein [Mass/Vol] 7.9 g/dL Normal 6.4-8.2 [facility] Comment on above: Performed By: #### U RCX #### [facility] [address] [address] [address] Ramses Dumas Sodium [Moles/Vol] 139 mmol/L Normal 136-145 [facility] Comment on above: Performed By: #### U RCX #### [facility] [address] [address] [address] Ramses Dumas Urea nitrogen [Mass/Vol] 10.0 mg/dL Normal 7.0-18.0 [facility] Comment on above: Performed By: #### U RCX #### [facility] [address] [place] [address] Dr. Ramses Dumas Urea nitrogen/Creatinine [Mass ratio] 12.3 mg/mg Normal [facility] Comment on above: Performed By: #### U RCX #### [facility] [address] [place] [address] Dr. Ramses Dumas SALICYLATEon 08-13-2022 SALICYLATE <2.8 Normal <=19.9 [facility] Comment on above: Performed By: #### U RCX #### [facility] [address] [place] [address] Dr. Ramses Dumas URINE MICROSCOPIC ONLYon BACTERIA LARGE Abnormal NONE SEEN [facility] Comment on above: Performed By: #### C BC #### [facility] [address] [place] [address] Dr. Ramses Dumas Bacteria identified Cx Nom (U) INDICATED Normal [facility] Comment on above: Performed By: #### C BC #### [facility] [address] [place] [address] Dr. Ramses Dumas CA OX CRYSTALS RARE Normal The [facility] Comment on above: Performed By: #### C BC #### [facility] [address] [place] [address] Dr. Ramses Dumas CAST NONE SEEN Normal NONE SEEN [facility] Comment on above: Performed By: #### C BC #### [facility] [address] [place] [address] Dr. Ramses Dumas Crystals LM Nom (Urine sed) SEEN Abnormal NONE SEEN [facility] Comment on above: Performed By: #### C BC #### [facility] [address] [place] [address] Dr. Ramses Dumas Epithelial cells LM Ql (Urine sed) MODERATE Abnormal NONE SEEN /RARE [facility] Comment on above: Performed By: #### C BC #### [facility] [address] [place] [address] Dr. Ramses Dumas MUCOUS NONE SEEN Normal NONE SEEN [facility] Comment on above: Performed By: #### C BC #### [facility] [address] [place] [address] Dr. Ramses Dumas RBC 10-20 Abnormal 0-2 [facility] Comment on above: Performed By: #### C BC #### [facility] [address] [place] [address] Dr. Ramses Dumas WBC 20-50 Abnormal NONE SEEN [facility] Comment on above: Performed By: #### C BC #### [facility] [address] [place] [address] Dr. Ramses Dumas Pap IG,rfx Aptima HPV all pt hon 08-09-2022 . . Normal [facility] Comment on above: Performed By: #### C MP #### [facility] [address] [place] [address] Dr. Ramses Dumas DIAGNOSIS: Comment Abnormal [facility] Comment on above: Result Comment: EPIT HELIAL CELL ABNORMALITY. LOW GRADE SQUAMOUS INTRAEPITHELIAL LESION (LSIL). Performed By: #### C MP #### [facility] [address] [place] [address] Dr. Ramses Dumas Electronically signed by: Comment Normal [facility] Comment on above: Result Comment: Arnaud Joseph MD, Pathologist Performed By: #### C MP #### [facility] [address] [place] [address] Dr. Ramses Dumas HPV Aptima Negative Normal Negative [facility] Comment on above: Result Comment: This nucleic acid amplification test detects fourteen high-risk HPV types (16,18,31,33,35,39,45,51,52,56,58,59,66,68) without differentiation. Performed By: #### C MP #### [facility] [address] [place] [address] Dr. Ramses Dumas Methodology: Comment Normal [facility] Comment on above: Result Comment: This liquid based ThinPrep(R) pap test was screened with the use of an image guided system. Performed By: #### C MP #### [facility] [address] [address] [address] Ramses Dumas Note: Comment Normal [facility] Comment on above: Result Comment: The Pap smear is a screening test designed to aid in the detection of premalignant and malignant conditions of the uterine cervix. It is not a diagnostic procedure and should not be used as the sole means of detecting cervical cancer. Both false-positive and false-negative reports do occur. . Performed By: #### C MP #### [facility] [id number] Ramses Dumas Pathologist Provided ICD10 Comment Normal [facility] Comment on above: Result Comment: [id number] Performed By: #### C MP #### [facility] [address] [place] [address] Dr. Ramses Dumas Performed by: Comment Normal [facility] Comment on above: Result Comment: Gail Ruano, Reconciliation Coordinator (ASCP) Performed By: #### C MP #### [facility] [address] [place] [address] Dr. Ramses Dumas Reflex Criteria: Comment Normal [facility] Comment on above: Result Comment: See below for HPV testing results. . Performed By: #### C MP #### [facility] [address] [place], [place] [id number] Dr. Ramses Dumas Specimen adequacy: Comment Normal [facility] Comment on above: Result Comment: Sati sfactory for evaluation. Endocervical and/or squamous metaplastic cells (endocervical component) are present. Performed By: #### C MP #### [facility] [address] [place], [place] [id number] Dr. Ramses Dumas Vital Signs Date Time Vital Sign Value Performing Clinician Ronnie perez 01-29-2025 09:23-0400 Body temperature 98.1 [degF] Luis Felipe Delacruz MD Work Phone: [facility] 01-29-2025 09:23-0400 Diastolic blood pressure 86 mm[Hg] Luis Felipe Delacruz MD Work Phone: [facility] 01-29-2025 09:23-0400 Heart rate 81 /min Luis Felipe Delacruz MD Work Phone: [facility] [email or web address] 01-29-2025 09:23-0400 Respiratory rate 18 /min Luis Felipe Delacruz MD Work Phone: [facility] [email or web address] 01-29-2025 09:23-0400 SaO2% (BldA) [Mass fraction] 100 % Luis Felipe Delacruz MD Work Phone: [facility] [email or web address] 01-29-2025 09:23-0400 Systolic blood pressure 129 mm[Hg] Luis Felipe Delacruz MD Work Phone: [facility] [email or web address] 01-29-2025 06:00-0400 Body mass index (BMI) [Ratio] 29.01 kg/m2 Luis Felipe Delacruz MD Work Phone: [facility] [email or web address] 01-29-2025 06:00-0400 Body weight 81.5 kg Luis Felipe Delacruz MD Work Phone: [facility] [email or web address] 01-27-2025 10:01-0400 Body height 167.6 cm Luis Felipe Delacruz MD Work Phone: [facility] [email or web address] 01-22-2025 11:49-0400 Body temperature 97.7 [degF] Luis Felipe Delacruz MD Work Phone: [facility] [email or web address] 01-22-2025 11:49-0400 Diastolic blood pressure 75 mm[Hg] Luis Felipe Delacruz MD Work Phone: [facility] [email or web address] 01-22-2025 11:49-0400 Heart rate 54 /min Luis Felipe Delacruz MD Work Phone: [facility] [email or web address] 01-22-2025 11:49-0400 Respiratory rate 15 /min Luis Felipe Delacruz MD Work Phone: [facility] [email or web address] 01-22-2025 11:49-0400 SaO2% (BldA) [Mass fraction] 98 % Luis Felipe Delacruz MD Work Phone: [facility] [email or web address] 01-22-2025 11:49-0400 Systolic blood pressure 108 mm[Hg] Luis Felipe Delacruz MD Work Phone: [facility] 01-21-2025 23:45-0400 Body height 167.6 cm Luis Felipe Delacruz MD Work Phone: [facility] 01-21-2025 23:45-0400 Body mass index (BMI) [Ratio] 28.23 kg/m2 Luis Felipe Delacruz MD Work Phone: [facility] 01-21-2025 23:45-0400 Body weight 79.3 kg Luis Felipe Delacruz MD Work Phone: [facility] 04-10-2024 07:30-0400 Body temperature 98 [degF] MD Domingo Snyder Work Phone: [facility] 04-10-2024 07:30-0400 Diastolic blood pressure 73 mm[Hg] MD Domingo Snyder Work Phone: [facility] 04-10-2024 07:30-0400 Heart rate 75 /min MD Domingo Snyder Work Phone: [facility] 04-10-2024 07:30-0400 Respiratory rate 16 /min MD Domingo Snyder Work Phone: [facility] 04-10-2024 07:30-0400 SaO2% (BldA) [Mass fraction] 100 % MD Domingo Snyder Work Phone: [facility] 04-10-2024 07:30-0400 Systolic blood pressure 123 mm[Hg] MD Domingo Snyder Work Phone: [facility] 04-08-2024 22:44-0400 Body height 167.64 cm MD Domingo Snyder Work Phone: [facility] 04-08-2024 22:44-0400 Body weight 86.58 kg MD Domingo Snyder Work Phone: [facility] 03-20-2023 10:30-0400 Blood Pressure Location Nona RAYGOZA [facility] 03-20-2023 10:30-0400 Diastolic blood pressure 73 mm[Hg] Nonadinesh RAYGOZA [facility] 03-20-2023 10:30-0400 Heart rate 80 /min Nonadinesh RAYGOZA [facility] 03-20-2023 10:30-0400 Respiratory rate 16 /min Nonadinesh RAYGOZA [facility] 03-20-2023 10:30-0400 Systolic blood pressure 128 mm[Hg] Nonadinesh RAYGOZA [facility] Encounters Encounter Date Encounter Type Care Provider Facility Start: 03-16-2025 End: 03-16-2025 ambulatory [facility] Facility:[facility] Start: 01-26-2025 End: 01-29-2025 Evaluation and management of inpatient Luis Felipe Delacruz MD Work Phone: [facility] Comment on above: Bilateral ureteral c alculi; Acute postoperative pain Start: 01-26-2025 Emergency department patient visit [facility] Facility:[facility] Start: 01-21-2025 End: 01-22-2025 Evaluation and management of inpatient Luis Felipe Delacruz MD Work Phone: [facility] SUR[facility] Comment on above: Acute postoperative pain (Primary Dx); Renal calculus, left Start: 01-21-2025 End: 01-21-2025 ambulatory Domingo Snyder MD Work Phone: [facility] Work Phone: Start: 01-21-2025 End: 01-21-2025 Departed Referred Domingo Snyder MD Work Phone: [facility] Start: 01-17-2025 End: 01-19-2025 ambulatory DOMINGO SNYDER [facility] Start: 01-17-2025 End: 01-19-2025 Subsequent hospital visit by physician Octavio Shi Rn [facility] Special Procedures Comment on above: Arrived VUR (vesicoureteric reflux) Start: 01-05-2025 End: 01-07-2025 ambulatory [facility] Start: 12-02-2024 End: 12-02-2024 ambulatory Domingo Snyder MD Work Phone: [facility] Work Phone: Start: 12-02-2024 End: 12-02-2024 Departed Referred Domingo Snyder MD Work Phone: [facility] Start: 06-16-2024 End: 10-03-2024 ambulatory [facility] Start: 04-09-2024 Non-patient / Non-visit MD Vicente Snyder Work Phone: [facility] Work Phone: Start: 04-08-2024 End: 04-10-2024 Evaluation and management of inpatient MD Domingo Snyder Work Phone: [facility] Work Phone: Start: 04-08-2024 ambulatory Domingo Snyder Facility: [facility] Start: 12-17-2023 End: 12-17-2023 ambulatory TAMIKO VAN Not Available Start: 12-04-2023 End: 12-05-2023 ambulatory Nona RAYGOZA Facility:[facility] Start: 12-04-2023 End: 12-04-2023 Patient encounter procedure Nona RAYGOZA [facility] Start: 04-09-2023 End: 04-10-2023 ambulatory Nona RAYGOZA Facility:[id number] Start: 03-20-2023 End: 03-21-2023 ambulatory Nona RAYGOZA Facility: [facility] Start: 03-20-2023 End: 03-20-2023 Patient encounter procedure Nona RAYGOZA [facility] Start: 02-16-2023 End: 02-16-[address] DOMINGO SNYDER . Facility:[facility] Start: 02-02-2023 End: 02-02-[address] DOMINGO SNYDER . Facility: Start: 12-26-2022 End: 12-27-2022 ambulatory Nona RAYGOZA Facility:[facility] Start: 12-26-2022 End: 12-26-2022 Patient encounter procedure Nona RAYGOZA [facility] Start: 12-16-2022 End: 12-17-[address] NONA RAYGOZA . Facility:[facility] Start: 12-15-2022 End: 12-16-[address] NONA RAYGOZA . Facility:[facility] Start: 11-27-[address] DOMINGO SNYDER . Facili ty:[facility] Start: 11-07-2022 End: 11-07-[address] DOMINGO SNYDER . Facility:[facility] Start: 11-04-2022 Encounter for preprocedural cardiovascular examination DR JEFFERSON GIBBS . [facility] Start: 11-04-2022 Encounter for preprocedural laboratory examination DR JEFFERSON GIBBS . [facility] Start: 11-03-2022 End: 11-04-2022 Encounter for preprocedural cardiovascular examination DR DOMINGO SNYDER . Facility:[facility] Start: 11-03-2022 End: 11-04-[address] DOMINGO SNYDER . Facility:[facility] Start: 09-20-2022 Encounter for preprocedural laboratory examination DR NONA RAYGOZA . [facility] Start: 09-18-2022 End: 09-18-[address] NONA RAYGOZA . Facility:[facility] Start: 09-16-2022 End: 09-17-[address] NONA RAYGOZA . Facility:[facility] Start: 09-16-2022 End: 09-17-2022 Encounter for preprocedural laboratory examination DR NONA RAYGOZA . Facility:[facility] Start: 09-05-2022 End: 09-05-2022 ambulatory ORA BOND . Facility:[facility] Start: 09-04-2022 End: 09-04-2022 ambulatory DANIEL MONTGOMERY Facility:[facility] Start: 09-04-2022 End: 09-04-2022 ambulatory Daniel Montgomery [employer] Work Phone: Urology Comment on above: NO SHOW (Primary Dx) Start: 09-04-2022 End: 09-04-2022 Telemedicine consultation with patient Daniel Montgomery BARREL BUNG REMOVER AND DUMPER.DATA MINER Work Phone: [facility] Start: 08-28-2022 End: 08-29-[address] ERWIN MOORE Facility:[facility] Start: 08-22-2022 End: 08-24-[address] DOMINGO SNYDER . Facility:[facility] Start: 08-13-2022 End: 08-13-2022 ambulatory ORA BOND . Facility:[facility] Start: 07-31-2022 Encounter for cervic al smear to confirm findings of recent normal smear following initial abnormal smear DR JEFFERSON GIBBS . [facility] Start: 07-30-2022 End: 07-30-[address] DOMINGO SNYDER . Facility:[facility] Start: 07-30-2022 End: 07-30-2022 Encounter for cervical smear to confirm findings of recent normal smear following initial abnormal smear DR DOMINGO SNYDER . Facility:[facility] Start: 07-02-2022 End: 07-03-[address] DOMINGO SNYDER . Facility: Procedures Date Procedure Procedure Detail Performing Clinician Start: 01-27-2025 Fluoroscopy during operation Edwina Espino MD Work Phone: Start: 01-27-2025 Culture bacterial qu anttative colony count urine Edwina Espino MD Work Phone: Start: 01-27-2025 CULTURE, BLOOD 1 Fco Hemphill DO Work Phone: Start: 01-27-2025 CULTURE, BLOOD 1 Fco Hemphill DO Work Phone: Start: 01-27-2025 Basic metabolic pane l calcium total Kyung Miester BAR[employer] B[employer]G REMOVER AND DUMPER - GREENHOUSE MANAGER Work Phone: Start: 01-26-2025 Basic metabolic pane l calcium total Glen Desai MD Work Phone: Start: 01-26-2025 Culture bacterial qu anttative colony count urine Luis Felipe Delacruz MD Work Phone: Start: 01-26-2025 Urnls dip stick/tabl et rgnt auto w/o microscopy Glen Desai MD Work Phone: Start: 01-22-2025 Assay of lactate Zia Covington MD Work Phone: Start: 01-22-2025 PREVIOUS SPECIMEN Dinorah Hemphill DO Work Phone: Start: 01-22-2025 Fluoroscopy during operation Surendra Salinas MD Work Phone: Start: 01-22-2025 Basic metabolic pane l calcium total Zia Covington MD Work Phone: Start: 01-17-2025 Urethrocystography v oiding rs&i Adonis Guerra MD Work Phone: Start: 12-02-2024 Urine culture Domingo leger MD Work Phone: Start: 09-19-2022 Cystoscopic laser li thotripsy of ureteric calculus Nonadinesh RAYGOZA Start: 08-22-2022 Cystoscopic insertio n of ureteric stent Nona RAYGOZA Start: 04-05-2020 Ureteroscopy Nona DOHERTY TERS Start: 03-01-2020 Ureteroscopy Nona DOHERTY TERS Comment on above: left Start: 02-27-2020 Cystoscopic insertio n of ureteric stent Nona RAYGOZA Start: 12-19-2019 Cystourethroscopy wi th dilation of urethral stricture Nona RAYGOZA Start: 05-30-2012 Cholecystectomy Nona RAYGOZA Plan of Treatment Date Care Activity Detail Author Start: 02-06-2031 DTaP/Tdap/Td vaccine (7 - Td or Tdap) DTaP/Tdap/Td vaccine (7 - Td or Tdap) [facility] Start: 05-19-2025 Influenza vaccination Flu vacc ine (Season Ended) [facility] Start: 01-22-2025 End: 01-22-2025 CYSTOSCOPY URETERAL STENT INSERTION CYSTOSCOPY URETERAL STENT INSERTION Renal calculus, left 01/22/2025 9:28 AM EDT [facility] Start: 01-21-2025 Urine culture [facility] Start: 01-21-2025 Bacteria identified in Urine by Culture Urine Culture [facility] Start: 12-02-2024 Urine culture [facility] Start: 12-02-2024 Bacteria identified in Urine by Culture Urine Culture [facility] Start: 06-19-2024 COVID-19 Vaccine ( season) COVID-19 Vaccine ( season) [facility] Start: 04-10-2024 [facility] Start: 04-08-2024 Referral to Journeyman Pipe Welder [facility] Start: 04-08-2024 Hospital admission [facility] Start: 04-08-2024 [facility] Start: 06-19-2022 Influenza vaccination INFLUENZA (#1) [facility] Start: 10-19-2021 DEPRESSION ASSESSMENT DEPRESSION ASS [facility] Start: 2021 HPV TESTING HPV TESTING [facility] Start: 2021 Screening for malign ant neoplasm of cervix [facility] Start: 2012 PAP TESTING PAP TESTING [facility] Start: 2012 Screening for malign ant neoplasm of cervix Pap smear [facility] Start: 2010 Urine microalbumin profile DTAP,TDAP,TD (1 - Tdap) [facility] Start: 2009 HEPATITIS C [facility] Start: 2009 Hepatitis C screening Hepatitis C sc reen [facility] Start: 2009 HIV SCREENING HIV SCREENING [facility] Start: 2006 HIV screening HIV screen [facility] Start: 2004 Varicella vaccine (1 of 2 - 13+ 2-dose series) Varicella vaccine (1 of 2 - 13+ 2-dose series) [facility] Start: 2003 Depression Screen Depression Screen [facility] Start: 1995 Polio vaccine (4 of 4 - 4-dose series) Polio vaccine (4 of 4 - 4-dose series) [facility] Start: 03-14-1992 COVID-19 VACCINE (#1) COVID-19 VACCI NE (#1) [facility] Start: 1991 HEPATITIS B (1 of 3 - 3-dose series) HEPATITIS B (1 of 3 - 3-dose series) [facility] End: 01-24-2025 Basic metabolic 2000 panel - Serum or Plasma Basic metabolic panel Lab Routine Daily for 3 Days starting 01/22/2025 until 01/24/2025, 1 completed [facility] Comment on above: Daily for 3 Days sta rting 01/22/2025 until 01/24/2025, 1 completed End: 01-24-2025 CBC W Auto Differential panel - Blood CBC with Auto Differential Lab Routine Daily for 3 Days starting 01/22/2025 until 01/24/2025 [facility] Comment on above: Daily for 3 Days sta rting 01/22/2025 until 01/24/2025 Culture, Blood 1 [facility] Culture, Urine [facility] [email or web address] Comment on above: Release Upon Orderin g for 1 Occurrences starting 01/22/2025 End: 01-22-2025 Glucose [Mass/volume] in Serum or Plasma POCT Glucose Point of Care Testing Routine One Time for 1 Occurrences starting 01/22/2025 until 01/22/2025 [facility] [email or web address] Work Phone: Comment on above: One Time for 1 Occur rences starting 01/22/2025 until 01/22/2025 Oxygen therapy [Mini mum Data Set] Initiate Oxygen Therapy Protocol Respiratory Care Routine As Needed until discontinued starting 01/21/2025 [facility] [email or web address] Comment on above: As Needed until disc ontinued starting 01/21/2025 Oxygen therapy [Mini mum Data Set] Initiate Oxygen Therapy Protocol Respiratory Care Routine As Needed until discontinued starting 01/26/2025 [employer] Comment on above: As Needed until disc ontinued starting 01/26/2025 Patient Education Bipolar Disord er (DC) [facility] DC Instructions Know your Meds [facility] Work Phone: Patient referral [facility] Work Phone: End: 01-22-2025 Stone Analysis Stone Analysis Microbiology Routine One Time for 1 Occurrences starting 01/22/2025 until 01/22/2025 [employer] Work Phone: Comment on above: One Time for 1 Occur rences starting 01/22/2025 until 01/22/2025 Stone Analysis Stone Analysis Microbiology [employer] Label Print 01/22/2025 4:44 AM EDT [employer] End: 01-26-2025 Stone Analysis Stone Analysis Microbiology Routine One Time for 1 Occurrences starting 01/26/2025 until 01/26/2025 [employer] Comment on above: One Time for 1 Occur rences starting 01/26/2025 until 01/26/2025 Immunizations Immunization Date Immunization Notes Care Provider Beata moore 08-01-2019 influenza virus vaccine, unspecified formulation [facility] 08-09-2018 tetanus toxoid, redu franco diphtheria toxoid, and acellular pertussis vaccine, adsorbed [facility] 08-08-2018 influenza virus vaccine, unspecified formulation [facility] 06-19-2004 hepatitis B vaccine, pediatric or pediatric/adolescent dosage [facility] 03-27-2004 hepatitis B vaccine, pediatric or pediatric/adolescent dosage [facility] 12-18-2003 hepatitis B vaccine, pediatric or pediatric/adolescent dosage [facility] 12-18-2003 measles, mumps and rubella virus vaccine [facility] 04-10-1993 DTaP, unspecified formulation [facility] 04-10-1993 poliovirus vaccine, unspecified formulation mLED [facility] 12-28-1992 Hib, unspecified formulation mLED [facility] 12-28-1992 measles, mumps and rubella virus vaccine [facility] 03-26-1992 Hib, unspecified formulation mLED [facility] 01-18-1992 Hib, unspecified formulation mLED [facility] 1991 Hib, unspecified formulation [facility] Payers Date Payer Category Payer Unknown [id number] 2024 Unknown [id number] 2023 Self-pay 2021 Medicaid [place]M 09/17 [employer] [employer] [id number] 2021-Present [phone] [address] [place] [address] Medicaid [id number] 1991 Unknown [id number] 2.16.840.1.961215.3.579.2.593 1991 Unknown [id number] 2.16.840.1.515983.3.579.2.593 1991 Unknown [id number] 2.16.840.1.485572.3.579.2.593 1991 Unknown [id number] 2.16.840.1.455803.3.579.2.593 1991 Unknown [id number] 2.16.840.1.230407.3.579.2.593 1991 Unknown [id number] 2.16.840.1.140412.3.579.2.593 1991 Unknown [id number] 2.16.840.1.019409.3.579.2.593 1991 Unknown [id number] 2.16.840.1.850222.3.579.2.593 1991 Unknown [id number] 2.16.840.1.905099.3.579.2.593 1991 Unknown [id number] 2.16.840.1.006469.3.579.2.593 1991 Unknown [id number] 2.16.840.1.884465.3.579.2.593 1991 Unknown [id number] 2.16.840.1.673861.3.579.2.593 1991 Unknown [id number] 2.16.840.1.004823.3.579.2.593 1991 Unknown [id number] 2.16.840.1.151230.3.579.2.593 1991 Unknown [id number] 2.16.840.1.386526.3.579.2.593 1991 Unknown [id number] 2.16.840.1.337464.3.579.2.593 1991 Unknown [id number] 2.16.840.1.800345.3.579.2.727 1991 Unknown [id number] 2.16.840.1.013229.3.579.2.727 1991 Unknown [id number] 2.16.840.1.354114.3.579.2.727 1991 Unknown [id number] 2.16.840.1.100190.3.579.2.727 1991 Unknown [id number] 2.16.840.1.817173.3.579.2.1259 1991 Unknown [id number] 2.16.840.1.871345.3.579.2.174 1991 Unknown [id number] 2.16.840.1.478794.3.579.2.175 1991 Unknown [id number] 2.16.840.1.708016.3.579.2.175 1991 Unknown [id number] 2.16840.1.973118.3.579.2.175 1991 Unknown [id number] 2.16.840.1.629441.3.579.2.175 1991 Unknown [id number] 2.16.840.1.546610.3.579.2.718 1959 Medicaid [id number] 1959 Self-pay [id number] 1959 Unknown [id number] Unknown [id number] 2.16840.1.452102.3.579.2.531 Unknown [id number] 2.16840.1.055926.3.579.2.531 Unknown [id number] 2.16.840.1.605658.3.579.2.531 Unknown [id number] 2.16840.1.839739.3.579.2.531 Social History Date Type Detail Facility [facility] consumption [facility] Start: 1991 Sex Assigned At Not on file C [facility] Start: 08-20-2021 End: 01-22-2025 Tobacco smoking status Never smoked tobacco (finding) [facility] Tobacco smoking status Never [facility] Start: 01-22-2025 End: 01-26-2025 Sex Assigned At Female [facility] Start: 1990 Sex Assigned At Female F [facility] Start: 11-24-2024 End: 12-04-2024 Sex Female (finding) [facility] Start: 01-22-2025 Tobacco use and exposure Smokeless tobacco non-user [employer] Start: 01-22-2025 End: 01-27-2025 Alcoholic beverage intake Ex-drinker (finding) [employer] Start: 01-22-2025 End: 01-26-2025 History of Social function [employer] Has the electric, [employer] s, oil, or water company threatened to shut off services in your home in past 12Mo No [employer] (I/We) worried whe er (my/our) food would run out before (I/we) got money to buy more. Never true [employer] Medical Equipment Procedure Code Equipment Code Equipment Origin al Text Equipment Identifier Dates Stent Uret 6fr L 26cm Percflx Hydr+ Tapr Tip Grad - [id number] , [id number] FDA Start: 01-22-2025 Stent Uret 6fr L 26cm Percflx Hydr+ Dbl Pgtl Thrd 2 - [id number] , [id number], [id number] FDA Start: 01-27-2025 Goals Date Patient Goal Desired Activity /State Functional Status Date Assessment Result Facility 04-10-2024 Functional status Patient at [facility] Work Phone: 03-20-2023 Functional Status N/A [facility] [place] Mental Status Date Assessment Result Facility 04-10-2024 Cognitive function Cognitive Sta tus Patient at Baseline [facility] Work Phone: Clinical Notes 07-03-2022 to 01-29-2025 Balwinder Ashton RN - 01/29/2025 9:32 AM Nathen Blanco DO - 01/29/2025 9:05 AM Nathen Blanco DO - 01/28/2025 1:05 PM EDTGlen Desai MD - 01/28/2025 7:33 AM EDT Note Date & Type Note Facility 01-29-2025 History of Presen t illness Narrative Patient given all discharge instructions and education. Patient and present for teaching. Patient voices she still has antibiotic at home and was instructed to continue to taking them. Patient also instructed to pull stent. Awaiting scripts from pharmacy. Images from the original note were not included. [facility] Office: [phone] Duncan Shelton DO, Rad Burks DO, Gerald Le DO, Kyle Medina DO, Felipe Sandhu MD, Yancy Padgett MD, Sonia Alvarado MD, Kerri Meza MD, Arron Olson MD, Rebecca Cox MD, Deneen Kaur MD, Nathen Hemphill DO, Lynda Jimenez MD, Everette Wiggins MD, Andrey Shelton DO, Dorita Leigh MD, Dangelo Fernandez DO, Ciara Sales MD, Elaine Silverman MD, Nasra Smiley MD, Jace Haji MD, Dl Graham MD, Filomena Alexander MD, Lea Junior MD, Luis Felipe Delacruz MD, Tavares Cardoza MD, Casey Chavez DO, Analia Ring MD, Lyle Nguyen MD, Nathen Rogers MD, Cata Rogers MD, Johnathon Cerda MD, Makenzie Alberts CNP, [place] CNP, Casey Mercer CNP, Galilea Bradshaw DNP, Ritika Villaseñor, DATA MINER, Indu Montoya, DATA MINER, Angelica Chaney, DATA MINER, Vivian Kahn, DATA MINER, Garima Balbuena PA-C, Kyung Barkley, DATA MINER, Hetal Morris, DATA MINER, Yvette Canchola, DATA MINER, Gail Greene, DATA MINER, Dominguez Nunez PA-C, Mar Sanchez, DATA MINER, Cecelia Pearson, BURRER MACHINE, Ivy Cortes, DATA MINER, Felicita Rm, DATA MINER, Pau Viera, DATA MINER [facility] IN-PATIENT SERVICE [facility] Progress Note 01/29/2025 9:05 AM Name: Diana Barriga Acct: [id number] Room: 03210-20 Day: 3 Admit Date: 01/26/2025 5:25 PM PCP: Domingo Snyder MD Code Status: Full Code Subjective: She is feeling much better today. Pain is controlled. She is afebrile. Vitals are stable. Urine cultures are negative Brief History: This is a 34-year-old female who was transferred to our hospital for evaluation of left-sided flank pain. She was recently discharged from our facility after undergoing cystoscopy with stent placement on 01/22/2025 for left obstructive renal stone. She was discharged on oral Bactrim for treatment of urinary tract infection. On Thursday patient developed new left-sided flank pain. CT scan showed hydronephrosis with a large stone in the kidney. There was concern that the stent was malfunctioning and patient was subsequently transferred to our facility for reevaluation. She was seen by urology who recommended: Review of Systems: Constitutional: No fevers chills or sweats Respiratory: negative for cough, dyspnea on exertion, shortness of breath, wheezing Cardiovascular: negative for chest pain, chest pressure/discomfort, lower extremity edema, palpitations Gastrointestinal: negative for abdominal pain, constipation, diarrhea, nausea, vomiting Neurological: negative for dizziness, headache Musculoskeletal: No flank pain Medications: Allergies: No Known Allergies Current Meds: Scheduled Meds: tamsulosin 0.4 mg Oral Daily sodium chloride flush 5-40 mL IntraVENous 2 times per day enoxaparin 40 mg SubCUTAneous Daily cefTRIAXone (ROCEPHIN) IV 1,000 mg IntraVENous Q24H Continuous Infusions: sodium chloride PRN Meds: prochlorperazine, hyoscyamine, sodium chloride flush, sodium chloride, ondansetron OR ondansetron, polyethylene glycol, oxyCODONE-acetaminophen, HYDROmorphone, ketorolac, acetaminophen Data: Vitals: BP 121/77 Pulse 73 Temp 98.1 F (36.7 C) (Oral) Resp 16 Ht 1.676 m (5' 5.98 ) Wt 81.5 kg (179 lb 10.8 oz) SpO2 94% BMI 29.01 kg/m Temp (24hrs), Av.1 F (36.7 C), Min:98.1 F (36.7 C), Max:98.2 F (36.8 C) No results for input(s): POCGLU in the last 72 hours. I/O (24Hr): Intake/Output Summary (Last 24 hours) at 01/29/2025 0905 Last data filed at 01/28/2025 1756 Gross per 24 hour Intake 640 ml Output -- Net 640 ml Labs: Hematology: Recent Labs 01/26/25185001/27/25 0728 WBC 5.9 3.9 RBC 4.30 3.95 HGB 12.0 10.7* HCT 38.1 34.2* MCV 88.6 86.6 MCH 27.9 27.1 MCHC 31.5 31.3 RDW 12.7 12.6 PLT 261 238 MPV 9.0 9.1 Chemistry: Recent Labs 01/26/25 18501/27/25 0728 NA 139 139 K 3.7 3.9 CL 106 108* CO2 21 22 GLUCOSE 126* 85 BUN 12 11 CREATININE 0.9 0.7 ANIONGAP 12 9 LABGLOM 87 >90 CALCIUM 8.6 8.3* No results for input(s): LABALBU , LABA1C , H9NOWAT , FT4 , TSH , AST , ALT , LDH , GGT , ALKPHOS , BILITOT , BILIDIR , AMMONIA , AMYLASE , LIPASE , LACTATE , CHOL , HDL , CHOLHDLRATIO , TRIG , VLDL , IMA22LL , PHENYTOIN , PHENYF , URICACID , POCGLU in the last 72 hours. Invalid input(s): PROT , C6RGQWS , LABGGT , LDLCHOLESTEROL ABG:No results found for: POCPH , PHART , PH , POCPCO2 , MOI0MZL , PCO2 , POCPO2 , PO2ART , PO2 , POCHCO3 , PYA5HWT , HCO3 , NBEA , PBEA , BEART , BE , THGBART , THB , KED3NVD , ZYKC0WUE , R0XRIXOS , O2SAT , FIO2 Lab Results Component Value Date/Time SPECIAL Site: Urine 01/27/2025 03:44 PM Lab Results Component Value Date/Time CULTURE NO GROWTH 01/27/2025 03:44 PM Radiology: No results found. Physical Examination: General appearance: alert, cooperative she is uncomfortable appearing in bed Mental Status: oriented to person, place and time and normal affect Lungs: clear to auscultation bilaterally, normal effort Heart: regular rate and rhythm, no murmur Abdomen: soft, nontender, nondistended, normal bowel sounds, no masses, hepatomegaly, splenomegaly Extremities: no edema, redness, tenderness in the calves Skin: no gross lesions, rashes, induration positive for Tuan sign Assessment: Hospital Problems Last Modified POA * (Principal) Hydronephrosis with renal calculous obstruction 01/27/2025 Yes Pyelonephritis 01/27/2025 Yes S/P cystoscopy with ureteral stent placement 01/26/2025 Yes Left ureteral calculus 01/26/2025 Yes Plan: Pyelonephritis, left hydronephrosis due to obstructing renal calculi. Concern for malfunctioning ureteral stent. Patient has severe flank pain Stent placed 01/22/2025 and discharged home returns with flank pain and obstructing stone. Ua shows 20-50 WBC, large hgb, and leuk esterase. Urology consulted, s/p ureteroscopy with ammonium laser lithotripsy and left ureteral stent exchange, right ureteroscopy with right retrograde pyelogram and stent placed Continue Flomax Plan to discharge home today. Will continue antibiotics at her already prescribed tells me she has about a weeks worth Anemia is likely dilutional PTOT Okay for DVT ppx Medical Decision Making: Daja Hemphill DO 01/29/2025 9:05 AM Images from the original note were not included. [facility] Office: [phone] Duncan Shelton DO, Rad Burks DO, Gerald Le DO, Kyle Medina DO, Felipe Sandhu MD, Yancy Padgett MD, Sonia Alvarado MD, Kerri Meza MD, Arron Olson MD, Rebecca Cox MD, Deneen Kaur MD, Nathen Hemphill DO, Lynda Jimenez MD, Everette Wiggins MD, Andrey Shelton DO, Dorita Leigh MD, Dangelo Fernandez DO, Ciara Sales MD, Elaine Silverman MD, Nasra Smiley MD, Jace Haji MD, Dl Graham MD, Filomena Alexander MD, Lea Junior MD, Luis Felipe Delacruz MD, Tavares Cardoza MD, Casey Chavez DO, Analia Ring MD, Lyle Nguyen MD, Nathen Rogers MD, Cata Rogers MD, Johnathon Cerda MD, Makenzie Alberts, WAYNE, [place] CNP, Casey Mercer CNP, Galilea Bradshaw, ALFREDO, Ritika Villaseñor DATA MINER, Indu Montoya, DATA MINER, Angelica Chaney, DATA MINER, Vivian Kahn, DATA MINER, Garima Balbuena PA-C, Kyung Barkley, DATA MINER, Hetal Morris DATA MINER, Yvette Canchola DATA MINER, Gail Greene DATA MINER, Dominguez Nunez PA-C, Mar Sanchez, DATA MINER, Cecelia Pearson, BURRER MACHINE, Ivy Cortes, DATA MINER, Felicita Rm DATA MINER, Pau Viera, DATA MINER [facility] IN-PATIENT SERVICE [facility] Progress Note 01/28/2025 1:05 PM Name: Diana Barriga Acct: [id number] Room: [id number]/[id number] Day: 2 Admit Date: 01/26/2025 5:25 PM PCP: Domingo Snyder MD Code Status: Full Code Subjective: Feeling a little better today but still nauseated, weak. Does not feel back to baseline. Has hematuria. Brief History: This is a 34-year-old female who was transferred to our hospital for evaluation of left-sided flank pain. She was recently discharged from our facility after undergoing cystoscopy with stent placement on 01/22/2025 for left obstructive renal stone. She was discharged on oral Bactrim for treatment of urinary tract infection. On Thursday patient developed new left-sided flank pain. CT scan showed hydronephrosis with a large stone in the kidney. There was concern that the stent was malfunctioning and patient was subsequently transferred to our facility for reevaluation. She was seen by urology who recommended: Review of Systems: Constitutional: + chills, -fevers, -sweats Respiratory: negative for cough, dyspnea on exertion, shortness of breath, wheezing Cardiovascular: negative for chest pain, chest pressure/discomfort, lower extremity edema, palpitations Gastrointestinal: negative for abdominal pain, constipation, diarrhea, nausea, vomiting Neurological: negative for dizziness, headache Musculoskeletal: Positive for flank pain Medications: Allergies: No Known Allergies Current Meds: Scheduled Meds: tamsulosin 0.4 mg Oral Daily sodium chloride flush 5-40 mL IntraVENous 2 times per day enoxaparin 40 mg SubCUTAneous Daily cefTRIAXone (ROCEPHIN) IV 1,000 mg IntraVENous Q24H Continuous Infusions: sodium chloride PRN Meds: prochlorperazine, hyoscyamine, sodium chloride flush, sodium chloride, ondansetron OR ondansetron, polyethylene glycol, oxyCODONE-acetaminophen, HYDROmorphone, ketorolac, acetaminophen Data: Vitals: BP 136/84 Pulse 81 Temp 98.2 F (36.8 C) (Oral) Resp 16 Ht 1.676 m (5' 5.98 ) Wt 81.6 kg (179 lb 14.3 oz) SpO2 100% BMI 29.05 kg/m Temp (24hrs), Av F (36.7 C), Min:97 F (36.1 C), Max:98.6 F (37 C) No results for input(s): POCGLU in the last 72 hours. I/O (24Hr): Intake/Output Summary (Last 24 hours) at 01/28/2025 1305 Last data filed at 01/28/2025 0922 Gross per 24 hour Intake 2713.35 ml Output -- Net 2713.35 ml Labs: Hematology: Recent Labs 01/26/25185001/27/25 0728 WBC 5.9 3.9 RBC 4.30 3.95 HGB 12.0 10.7* HCT 38.1 34.2* MCV 88.6 86.6 MCH 27.9 27.1 MCHC 31.5 31.3 RDW 12.7 12.6 PLT 261 238 MPV 9.0 9.1 Chemistry: Recent Labs 01/26/25185001/27/25 0728 NA 139 139 K 3.7 3.9 CL 106 108* CO2 21 22 GLUCOSE 126* 85 BUN 12 11 CREATININE 0.9 0.7 ANIONGAP 12 9 LABGLOM 87 >90 CALCIUM 8.6 8.3* No results for input(s): LABALBU , LABA1C , D3OLOZV , FT4 , TSH , AST , ALT , LDH , GGT , ALKPHOS , BILITOT , BILIDIR , AMMONIA , AMYLASE , LIPASE , LACTATE , CHOL , HDL , CHOLHDLRATIO , TRIG , VLDL , WFL83TJ , PHENYTOIN , PHENYF , URICACID , POCGLU in the last 72 hours. Invalid input(s): PROT , X5XQSDD , LABGGT , LDLCHOLESTEROL ABG:No results found for: POCPH , PHART , PH , POCPCO2 , YPR9JYW , PCO2 , POCPO2 , PO2ART , PO2 , POCHCO3 , VLQ2OMB , HCO3 , NBEA , PBEA , BEART , BE , THGBART , THB , RLN6ZDL , GKOT3UPP , N7WGPLVT , O2SAT , FIO2 Lab Results Component Value Date/Time SPECIAL Site: Urine 01/27/2025 03:44 PM Lab Results Component Value Date/Time CULTURE NO GROWTH 01/27/2025 03:44 PM Radiology: No results found. Physical Examination: General appearance: alert, cooperative she is uncomfortable appearing in bed Mental Status: oriented to person, place and time and normal affect Lungs: clear to auscultation bilaterally, normal effort Heart: regular rate and rhythm, no murmur Abdomen: soft, nontender, nondistended, normal bowel sounds, no masses, hepatomegaly, splenomegaly Extremities: no edema, redness, tenderness in the calves Skin: no gross lesions, rashes, induration positive for Tuan sign Assessment: Hospital Problems Last Modified POA * (Principal) Hydronephrosis with renal calculous obstruction 01/27/2025 Yes Pyelonephritis 01/27/2025 Yes S/P cystoscopy with ureteral stent placement 01/26/2025 Yes Left ureteral calculus 01/26/2025 Yes Plan: Pyelonephritis, left hydronephrosis due to obstructing renal calculi. Concern for malfunctioning ureteral stent. Patient has severe flank pain Stent placed 01/22/2025 and discharged home returns with flank pain and obstructing stone. Ua shows 20-50 WBC, large hgb, and leuk esterase. Urology consulted, s/p ureteroscopy with ammonium laser lithotripsy and left ureteral stent exchange, right ureteroscopy with right retrograde pyelogram and stent placed Continue Flomax Continue IV antibiotic despite negative urine culture since patient was already on antibiotics. UA was positive for WBCs and concern for UTI as high If patient does well plan for discharge in the morning Anemia is likely dilutional PTOT Okay for DVT ppx Medical Decision Making: Medium Nathen Hemphill DO 01/28/2025 1:05 PM Urology Progress Note Subjective: Diana Barriga is a 34 y.o. female. His/Her current Diet is: ADULT DIET; Regular. Since the previous note, the patient reports the following: Underwent bilateral ureteroscopy, please refer to operative note for full details. Feeling much better, not complete resolution of pain but improving. Vitals and Labs: Vitals: 01/27/25 2304 01/28/25 0100 01/28/25 0242 01/28/25 0452 BP: (!) 142/85 137/87 Pulse: 86 77 Resp: 16 18 18 16 Temp: 98.6 F (37 C) 98.2 F (36.8 C) TempSrc: Oral Oral SpO2: 96% 97% Weight: Height: I/O last 3 completed shifts: In: 2533.4 [P.O.:25; I.V.:2508.4] Out: 400 [Urine:400] Recent Labs 01/26/25185001/27/25 0728 WBC 5.9 3.9 HGB 12.0 10.7* HCT 38.1 34.2* MCV 88.6 86.6 PLT 261 238 Recent Labs 01/26/25 18501/27/25 0728 NA 139 139 K 3.7 3.9 CL 106 108* CO2 21 22 BUN 12 11 CREATININE 0.9 0.7 Recent Labs 01/26/25 1753 COLORU [place]* PHUR 6.5 WBCUA 20 TO 50 RBCUA TOO NUMEROUS TO COUNT BACTERIA None LEUKOCYTESUR MODERATE* UROBILINOGEN Normal BILIRUBINUR NEGATIVE Physical Exam: NAD A/O x 3 RRR No accessory muscles of inspiration Abdomen soft, non-tender, non-distended. + left CVA tenderness Stent strings adhered to thigh No calf pain. EPCs on. Machine turned on. Impression: 34 yo female with Obstructing left ureteral stone Severe left flank pain Plan: - Regular diet - Flomax and Levsin for stent pain - Pain control per primary team - Stent strings adhered to thigh, instructed patient to remove strings in 4 days from today, 02/01 - Follow-up outpatient with Dr. Espino or Dr. Guerra with renal ultrasound in 6 weeks Glen Desai MD Urology Resident, PGY-4 Comprehensive Nutrition Assessment Type and Reason for Visit: Initial, Positive nutrition screen Nutrition Recommendations/Plan: Continue NPO as medically necessary Recommend Regular diet once appropriate Will monitor diet adv, PO intake, wt, and POC Malnutrition Assessment: Malnutrition Status: At risk for malnutrition (01/27/25 1007) Context: Chronic Illness Findings of the 6 clinical characteristics of malnutrition: Energy Intake: 75% or less estimated energy requirements for 1 month or longer Weight Loss: Mild weight loss (16% x ~1yr) Body Fat Loss: No body fat loss Muscle Mass Loss: No muscle mass loss Fluid Accumulation: Unable to assess Supervisor Coil Winding Strength: Not Performed Nutrition Assessment: 34 y.o.F admitted d/t brain kidney stones. Possible OR for ureteroscopy--NPO. Pt had recent stent placement. +nutrition screen r/t wt loss, decreased intake. Pt reports decreased intake x ~1 wk since last sx 2/2 nausea. Prior to that, pt reports intake of >50% of meals, which is decreased from baseline. RD informed pt of ONS, high protein menu items available s/p procedure. Pt v/u. Per chart, pt weighed 213# on 12/17/23, CBW of 179# shows clinically insignificant wt loss of 16% x 1 yr. No muscle/fat loss observed at this time. RD will continue to monitor per protocol. Nutrition Related Findings: LBM on 01/25. Labs/Meds reviewed. Wound Type: Surgical Incision Current Nutrition Intake & Therapies: Average Meal Intake: NPO Diet NPO Anthropometric Measures: Height: 167.6 cm (5' 5.98 ) [place] Body Weight (IBW): 130 lbs (59 kg) Current Body Weight: 81.6 kg (179 lb 14.3 oz), 138.4 % IBW. Current BMI (kg/m2): 29 Estimated Daily Nutrient Needs: Energy Requirements Based On: Formula Weight Used for Energy Requirements: Current Energy (kcal/day): 8497-5727 kcals/day Weight Used for Protein Requirements: Current Protein (g/day): 82-92 g/day Method Used for Fluid Requirements: 1 ml/kcal Fluid (ml/day): 9664-4384 ml/day Nutrition Diagnosis: Inadequate oral intake related to (inability to consume adeqaute nutrient intake) as evidenced by NPO or clear liquid status due to medical condition Nutrition Interventions: Food and/or Nutrient Delivery: Continue NPO Nutrition Education/Counseling: Survival skills/brief education completed Coordination of Nutrition Care: Continue to monitor while inpatient Plan of Care discussed with: Pt Goals: Goals: Initiate PO diet, by next RD assessment Type of Goal: New goal Nutrition Monitoring and Evaluation: Behavioral-Environmental Outcomes: None Identified Food/Nutrient Intake Outcomes: Diet Advancement/Tolerance Physical Signs/Symptoms Outcomes: Biochemical Data, GI Status, Meal Time Behavior, Weight Discharge Planning: Too soon to determine Anastasiya Medel RDN, LD, MS Contact: [phone] Images from the original note were not included. [facility] Office: [phone] Duncan Shelton DO, Rad Burks DO, Gerald Le DO, Kyle Medina DO, Felipe Sandhu MD, Yancy Padgett MD, Sonia Alvarado MD, Kerri Meza MD, Arron Olson MD, Rebecca Cox MD, Deneen Kaur MD, Nathen Hemphill DO, Lynda Jimenez MD, Everette Wiggins MD, Andrey Shelton DO, Dorita Leigh MD, Dangelo Fernandez DO, Ciara Sales MD, Elaine Silverman MD, Nasra Smiley MD, Jace Haji MD, Dl Graham MD, Filomena Alexander MD, Lea Junior MD, Luis Felipe Delacruz MD, Tavares Cardoza MD, Casey Chavez DO, Analia Ring MD, Lyle Nguyen MD, Nathen Rogers MD, Cata Rogers MD, Johnathon Cerda MD, Makenzie Alberts, WAYNE, [place] DATA MINER, Casey Mercer, DATA MINER, Galilea Bradshaw, ALFREDO, Ritika Villaseñor DATA MINER, Indu Montoya, DATA MINER, Angelica Chaney, DATA MINER, Vivian Kahn, DATA MINER, Garima Balbuena PA-C, Kyung Barkley, DATA MINER, Hetal Morris, DATA MINER, Yvette Canchola, DATA MINER, Gail Greene, DATA MINER, Dominguez Nunez PA-C, Mar Sanchez, DATA MINER, Cecelia Pearson, [employer], Ivy Cortes, DATA MINER, Felicita Rm, DATA MINER, Pau Viera, DATA MINER [facility] IN-PATIENT SERVICE [facility] Progress Note 01/27/2025 9:31 AM Name: Diana Barriga Acct: [id number] Room: 0321/0321-02 Day: 1 Admit Date: 01/26/2025 5:25 PM PCP: Domingo Snyder MD Code Status: Full Code Subjective: Started having increased pain and pressure on left side on Thursday. Called Urologist yesterday who recommended going to [place]. She had a CT scan which showed hydronephrosis in kidney along with a large stone. There was concern that stent was malfunctioning. Today she feels very ill. She is having pain that is described as a 6/10 throbbing pain in left flank. No fevers. She's been taking her antibiotic Brief History: This is a 34-year-old female who was transferred to our hospital for evaluation of left-sided flank pain. She was recently discharged from our facility after undergoing cystoscopy with stent placement on 01/22/2025 for left obstructive renal stone. She was discharged on oral Bactrim for treatment of urinary tract infection. On Thursday patient developed new left-sided flank pain. CT scan showed hydronephrosis with a large stone in the kidney. There was concern that the stent was malfunctioning and patient was subsequently transferred to our facility for reevaluation. She was seen by urology who recommended: Review of Systems: Constitutional: + chills, -fevers, -sweats Respiratory: negative for cough, dyspnea on exertion, shortness of breath, wheezing Cardiovascular: negative for chest pain, chest pressure/discomfort, lower extremity edema, palpitations Gastrointestinal: negative for abdominal pain, constipation, diarrhea, nausea, vomiting Neurological: negative for dizziness, headache Musculoskeletal: Positive for flank pain Medications: Allergies: No Known Allergies Current Meds: Scheduled Meds: tamsulosin 0.4 mg Oral Daily sodium chloride flush 5-40 mL IntraVENous 2 times per day [Held by provider] enoxaparin 40 mg SubCUTAneous Daily cefTRIAXone (ROCEPHIN) IV 1,000 mg IntraVENous Q24H Continuous Infusions: sodium chloride PRN Meds: hyoscyamine, sodium chloride flush, sodium chloride, ondansetron OR ondansetron, polyethylene glycol, oxyCODONE-acetaminophen, HYDROmorphone, ketorolac, acetaminophen Data: Vitals: BP 105/73 Pulse 72 Temp 97.7 F (36.5 C) (Oral) Resp 16 Ht 1.676 m (5' 6 ) Wt 81.6 kg (179 lb 14.3 oz) SpO2 96% BMI 29.04 kg/m Temp (24hrs), Av.8 F (36.6 C), Min:97.7 F (36.5 C), Max:97.9 F (36.6 C) No results for input(s): POCGLU in the last 72 hours. I/O (24Hr): Intake/Output Summary (Last 24 hours) at 01/27/2025 09 Last data filed at 01/27/2025 0429 Gross per 24 hour Intake -- Output 400 ml Net -400 ml Labs: Hematology: Recent Labs 01/26/25185001/27/25 0728 WBC 5.9 3.9 RBC 4.30 3.95 HGB 12.0 10.7* HCT 38.1 34.2* MCV 88.6 86.6 MCH 27.9 27.1 MCHC 31.5 31.3 RDW 12.7 12.6 PLT 261 238 MPV 9.0 9.1 Chemistry: Recent Labs 01/26/25185001/27/25 0728 NA 139 139 K 3.7 3.9 CL 106 108* CO2 21 22 GLUCOSE 126* 85 BUN 12 11 CREATININE 0.9 0.7 ANIONGAP 12 9 LABGLOM 87 >90 CALCIUM 8.6 8.3* No results for input(s): LABALBU , LABA1C , E8QJLMM , FT4 , TSH , AST , ALT , LDH , GGT , ALKPHOS , BILITOT , BILIDIR , AMMONIA , AMYLASE , LIPASE , LACTATE , CHOL , HDL , CHOLHDLRATIO , TRIG , VLDL , MNA66FH , PHENYTOIN , PHENYF , URICACID , POCGLU in the last 72 hours. Invalid input(s): PROT , Q3EQVLC , LABGGT , LDLCHOLESTEROL ABG:No results found for: POCPH , PHART , PH , POCPCO2 , PYG4BBD , PCO2 , POCPO2 , PO2ART , PO2 , POCHCO3 , IUY6HSC , HCO3 , NBEA , PBEA , BEART , BE , THGBART , THB , XRJ2HCC , EGNG9WRI , W4UHDGWF , O2SAT , FIO2 Lab Results Component Value Date/Time SPECIAL Site: Urine 01/22/2025 09:43 AM Lab Results Component Value Date/Time CULTURE NO GROWTH 01/22/2025 09:43 AM Radiology: No results found. Physical Examination: General appearance: alert, cooperative she is uncomfortable appearing in bed Mental Status: oriented to person, place and time and normal affect Lungs: clear to auscultation bilaterally, normal effort Heart: regular rate and rhythm, no murmur Abdomen: soft, nontender, nondistended, normal bowel sounds, no masses, hepatomegaly, splenomegaly Extremities: no edema, redness, tenderness in the calves Skin: no gross lesions, rashes, induration positive for Tuan sign Assessment: Hospital Problems Last Modified POA * (Principal) Hydronephrosis with renal calculous obstruction 01/27/2025 Yes Pyelonephritis 01/27/2025 Yes S/P cystoscopy with ureteral stent placement 01/26/2025 Yes Left ureteral calculus 01/26/2025 Yes Plan: Pyelonephritis, left hydronephrosis due to obstructing renal calculi. Concern for malfunctioning ureteral stent. Patient has severe flank pain Stent placed 01/22/2025 and discharged home returns with flank pain and obstructing stone. Ua shows 20-50 WBC, large hgb, and leuk esterase. Urology consulted, appreciate recommendations. Patient may need repeat cystoscopy today. Has been compliant with her Bactrim at home, will start Rocephin while inpatient. Follow-up on blood and urine cultures from other hospital. Flomax ordered. Anemia is likely dilutional PTOT Okay for DVT ppx Medical Decision Making: Daja Hemphill DO 01/27/2025 9:31 AM Urology Progress Note Subjective: Diana Barriga is a 34 y.o. female. His/Her current Diet is: Diet NPO. Since the previous note, the patient reports the following: Pain has improved but still bothering patient AM labs pending Vitals and Labs: Vitals: 01/27/25 0102 01/27/25 0132 01/27/25 0359 01/27/25 0429 BP: Pulse: Resp: 16 16 16 16 Temp: TempSrc: SpO2: Weight: Height: No intake/output data recorded. Recent Labs 01/26/25 1851 WBC 5.9 HGB 12.0 HCT 38.1 MCV 88.6 PLT 261 Recent Labs 01/26/25 1851 NA 139 K 3.7 CL 106 CO2 21 BUN 12 CREATININE 0.9 Recent Labs 01/26/25 1753 COLORU [place]* PHUR 6.5 WBCUA 20 TO 50 RBCUA TOO NUMEROUS TO COUNT BACTERIA None LEUKOCYTESUR MODERATE* UROBILINOGEN Normal BILIRUBINUR NEGATIVE Physical Exam: NAD A/O x 3 RRR No accessory muscles of inspiration Abdomen soft, non-tender, non-distended. + left CVA tenderness No thurston catheter No calf pain. EPCs on. Machine turned on. Impression: 34 yo female with Obstructing left ureteral stone Severe left flank pain Plan: - Keep NPO - OR for surgery today, she was scheduled with Dr. Guerra for bilateral ureteroscopy with holmium laser lithotripsy in approximately 2 weeks - Patient was on Bactrim for suspected UTI although culture was negative, will order IV antibiotics with Rocephin - Follow-up daily labs - Continue Flomax and Levsin for stent pain Zia Covington MD 6:37 AM 01/27/2025 Cosigned by Edwina Espino MD at 01/27/2025 4:28 PM EDT documented in this encounter [facility] 01-29-2025 Hospital course Narrative Images from the original note were not included. [facility] Office: [phone] Duncan Shelton DO, Rad Burks DO, Gerald Le DO, Kyle Medina DO, Felipe Sandhu MD, Yancy Padgett MD, Sonia Alvarado MD, Kerri Meza MD, Arron Olson MD, Rebecca Cox MD, Deneen Kaur MD, Nathen Hemphill DO, Lynda Jimenez MD, Everette Wiggins MD, Andrey Shelton DO, Dorita Leigh MD, Dangelo Fernandez DO, Ciara Sales MD, Elaine Silverman MD, Nasra Smiley MD, Jace Haji MD, Dl Graham MD, Filomena Alexander MD, Lea Junior MD, Luis Felipe Delacruz MD, Tavares Cardoza MD, Casey Chavez DO, Analia Ring MD, Lyle Nguyen MD, Nathen Rogers MD, Cata Rogers MD, Johnathon Cerda MD, Makenzie Alberts, DATA MINER, [place], DATA MINER, Casey Mercer, DATA MINER, Galilea Bradshaw, [facility], Ritika Villaseñor, DATA MINER, Indu Montoya, DATA MINER, Angelica Chaney, DATA MINER, Vivian Kahn, DATA MINER, Garima Balbuena, PA-C, Kyung Barkley, DATA MINER, Hetal Morris, DATA MINER, Yvette Canchola, DATA MINER, Gail Greene, DATA MINER, Dominguez Nunez, PA-C, Mar Sanchez, DATA MINER, Cecelia Pearson, [facility], Ivy Cortes, DATA MINER, Felicita Rm, DATA MINER, Pau Viera, DATA MINER [facility] IN-PATIENT SERVICE [facility] Discharge Summary Patient ID: Diana Barriga : 1990 ACCOUNT: [id number] Patient's PCP: Domingo Snyder MD Admit Date: 01/26/2025 Discharge Date: 01/29/2025 Length of Stay: 3 Code Status: Full Code Admitting Physician: Nathen Kearns DO Discharge Physician: Nathen Hemphill DO Active Discharge Diagnoses: Hospital Problem Lists: Principal Problem: Hydronephrosis with renal calculous obstruction Active Problems: Pyelonephritis S/P cystoscopy with ureteral stent placement Left ureteral calculus Resolved Problems: * No resolved hospital problems. * Admission Condition: stable Discharged Condition: stable Hospital Stay: Hospital Course: Diana Barriga is a 34-year-old female who was transferred to our hospital for evaluation of left-sided flank pain. She was recently discharged from our facility after undergoing cystoscopy with stent placement on 01/22/2025 for left obstructive renal stone. She was discharged on oral Bactrim for treatment of urinary tract infection. On Thursday patient developed new left-sided flank pain. CT scan showed hydronephrosis with a large stone in the kidney. There was concern that the stent was malfunctioning and patient was subsequently transferred to our facility for reevaluation. She was seen by urology and underwent left ureteroscopy with ammonium laser lithotripsy, left ureteral stent exchange, right ureteroscopy with right retrograde pyelogram and right ureteral stent placement. Patient tolerated treatment well. Currently medically stable for discharge. Needs follow-up with urology outpatient and continue antibiotics. Significant therapeutic interventions: Significant Diagnostic Studies: Labs / Micro: CBC: Lab Results Component Value Date/Time WBC 3.9 01/27/2025 07:28 AM RBC 3.95 01/27/2025 07:28 AM HGB 10.7 01/27/2025 07:28 AM HCT 34.2 01/27/2025 07:28 AM MCV 86.6 01/27/2025 07:28 AM MCH 27.1 01/27/2025 07:28 AM MCHC 31.3 01/27/2025 07:28 AM RDW 12.6 01/27/2025 07:28 AM PLT 238 01/27/2025 07:28 AM BMP: Lab Results Component Value Date/Time GLUCOSE 85 01/27/2025 07:28 AM NA 139 01/27/2025 07:28 AM K 3.9 01/27/2025 07:28 AM CL 108 01/27/2025 07:28 AM CO2 22 01/27/2025 07:28 AM ANIONGAP 9 01/27/2025 07:28 AM BUN 11 01/27/2025 07:28 AM CREATININE 0.7 01/27/2025 07:28 AM CALCIUM 8.3 01/27/2025 07:28 AM LABGLOM >90 01/27/2025 07:28 AM Radiology: No results found. Consultations: Consults: Final Specialist Recommendations/Findings: IP CONSULT TO UROLOGY The patient was seen and examined on day of discharge and this discharge summary is in conjunction with any daily progress note from day of discharge. Discharge plan: Disposition: Home Physician Follow Up: Domingo Snyder MD [id number] [facility] [address] Schedule an appointment as soon as possible for a visit in 1 week(s) Adonis Guerra MD [address] [place] [address] Follow up Renal US in 6 weeks. Requiring Further Evaluation/Follow Up POST HOSPITALIZATION/Incidental Findings: Ureteroscopy lithotripsy and stent placement (with string): You may see blood in the urine after the procedure. This should resolve over the next couple days. Please stay hydrated. You may see intermittent blood in the urine while the stent is in place. This is expected. You may experience flank pain, and/or frequency/urgency of urination while the stent is in place. Please use Oxybutynin and Flomax (Tamsulosin) to help with these symptoms. Pt ok to discharge home in good condition No heavy lifting, >10 lbs for today Pt should avoid strenuous activity for today Pt should walk moderately at home Pt ok to shower Pt may resume diet as tolerated Pt should take Rx as directed No driving while on narcotics Please call attending physician or hospital powder mill operator with questions Call or Present to ED if fever (> 101F), intractable nausea vomiting or pain. Rx in chart Pt should follow up with Dr. Espino or Dr. Guerra, in 6 weeks, call to confirm appointment Pt should Pull stent in the morning of 02/01. There may be some pain associated with the stent removal, which is usually self limiting. We suggest using the pain medication prescribed for you and a nonsteroidal anti-inflammatory such as Ibuprofen, if you are able to take this medication, to control symptoms. Take Ibuprofen as directed for 24 hrs after stent pull. Please stay hydrated. Please call with questions. Diet: regular diet Activity: As tolerated Instructions to Patient: Discharge Medications: Medication List START taking these medications ibuprofen 600 MG tablet Commonly known as: ADVIL;MOTRIN Take 1 tablet by mouth 3 times daily as needed for Pain CONTINUE taking these medications hyoscyamine 0.125 MG tablet Commonly known as: Levsin Take 1 tablet by mouth every 6 hours as needed for Cramping (bladder spasms, stent pain) oxyCODONE 5 MG immediate release tablet Commonly known as: Roxicodone Take 1 tablet by mouth every 6 hours as needed for Pain for up to 5 days. Intended supply: 5 days. Take lowest dose possible to manage pain Max Daily Amount: 20 mg sulfamethoxazole-trimethoprim 800-160 MG per tablet Commonly known as: BACTRIM DS;SEPTRA DS Take 1 tablet by mouth 2 times daily for 10 days tamsulosin 0.4 MG capsule Commonly known as: FLOMAX Take 1 capsule by mouth daily Where to Get Your Medications Information about where to get these medications is not yet available Ask your nurse or doctor about these medications ibuprofen 600 MG tablet oxyCODONE 5 MG immediate release tablet No discharge procedures on file. Time Spent on discharge is 35 mins in patient examination, evaluation, counseling as well as medication reconciliation, prescriptions for required medications, discharge plan and follow up. Electronically signed by Nathen Hemphill DO 01/29/2025 9:10 AM Thank you Domingo Becker MD for the opportunity to be involved in this patient's care. documented in this encounter [facility] 01-28-2025 Hospital Discharg e Glen Amaro MD - 01/28/2025 7:35 AM EDT Ureteroscopy lithotripsy and stent placement (with string): You may see blood in the urine after the procedure. This should resolve over the next couple days. Please stay hydrated. You may see intermittent blood in the urine while the stent is in place. This is expected. You may experience flank pain, and/or frequency/urgency of urination while the stent is in place. Please use Oxybutynin and Flomax (Tamsulosin) to help with these symptoms. Pt ok to discharge home in good condition No heavy lifting, >10 lbs for today Pt should avoid strenuous activity for today Pt should walk moderately at home Pt ok to shower Pt may resume diet as tolerated Pt should take Rx as directed No driving while on narcotics Please call attending physician or hospital powder mill operator with questions Call or Present to ED if fever (> 101F), intractable nausea vomiting or pain. Rx in chart Pt should follow up with Dr. Espino or Dr. Guerra, in 6 weeks, call to confirm appointment Pt should Pull stent in the morning of 02/01. There may be some pain associated with the stent removal, which is usually self limiting. We suggest using the pain medication prescribed for you and a nonsteroidal anti-inflammatory such as Ibuprofen, if you are able to take this medication, to control symptoms. Take Ibuprofen as directed for 24 hrs after stent pull. Please stay hydrated. Please call with questions. documented in this encounter [facility] 01-22-2025 History of Presen t illness Narrative CLINICAL PHARMACY NOTE: MEDS TO BEDS Total # of Prescriptions Filled: 4 The following medications were delivered to the patient: Tamsulosin 0.4 mg Sulfamethoxazole-trimethoprim 800-160 Hyoscyamine 0.125 mg Oxycodone 5 mg Additional Documentation: dropped off to patient in room 350 on 01/22/25 at 2 pm by eboni kline. Copay was 11.63 and paid by clover documented in this encounter [facility] 01-22-2025 Hospital course Narrative Images from the original note were not included. [facility] Office: [phone] Duncan Shelton DO, Rad Burks DO, Gerald Le DO, Kyle Medina DO, Felipe Sandhu MD, Yancy Padgett MD, Sonia Alvarado MD, Kerri Meza MD, Arron Olson MD, Rebecca Cox MD, Deneen Kaur MD, Nathen Hemphill DO, Lynda Jimenez MD, Everette Wiggins MD, Andrey Shelton DO, Dorita Leigh MD, Dangelo Fernandez DO, Ciara Sales MD, Elaine Silverman MD, Nasra Smiley MD, Jace Haji MD, Dl Graham MD, Filomena Alexander MD, Lea Junior MD, Luis Felipe Delacruz MD, Tavares Cardoza MD, Casey Chavez DO, Lyle Nguyen MD, Nathen Rogers MD, Cata Rogers MD, Johnathon Cerda MD, Makenzie Alberts, DATA MINER, [place], DATA MINER, Casey Mercer, DATA MINER, Galilea Bradshaw, ALFREDO, Ritika Villaseñor, DATA MINER, Indu Montoya, DATA MINER, Angelica Chaney, DATA MINER, Vivian Kahn, DATA MINER, Garima Balbuena, SANAC, Kyung Barkley, DATA MINER, Hetal Morris, DATA MINER, Yvette Canchola, DATA MINER, Gail Greene, DATA MINER, Dominguez Nunez PA-C, Mar Sanchez, DATA MINER, Cecelia Pearson, [facility], Ivy Cortes, DATA MINER, Felicita Rm, DATA MINER, Pau Viera, DATA MINER [facility] IN-PATIENT SERVICE [facility] Discharge Summary Patient ID: Diana Barriga : 1990 ACCOUNT: [id number] Patient's PCP: Domingo Snyder MD Admit Date: 01/21/2025 Discharge Date: 01/22/2025 Length of Stay: 1 Code Status: Full Code Admitting Physician: Nathen Kearns DO Discharge Physician: Nathen Hemphill DO Active Discharge Diagnoses: Hospital Problem Lists: Principal Problem: Left ureteral calculus Active Problems: Acute cystitis without hematuria Resolved Problems: * No resolved hospital problems. * Admission Condition: serious Discharged Condition: stable Hospital Stay: Hospital Course: Diana Barriga is a 34 y.o. female who was transferred to our hospital from [facility] for evaluation of flank pain. CT scan showed a 6 to 7 mm ureteral obstructing renal stone. Urology was consulted and patient underwent cystoscopy with stent placement on 01/22/2025. She tolerated the procedure well. Medically she is stable for discharge. Will be discharged on antibiotics and instructions to follow-up with her urologist, she has appointment scheduled for Thursday. Will need to have results of urine culture followed up on. Significant therapeutic interventions: Significant Diagnostic Studies: Labs / Micro: CBC: Lab Results Component Value Date/Time WBC 3.5 01/22/2025 11:04 AM RBC 4.28 01/22/2025 11:04 AM HGB 11.8 01/22/2025 11:04 AM HCT 36.7 01/22/2025 11:04 AM MCV 85.7 01/22/2025 11:04 AM MCH 27.6 01/22/2025 11:04 AM MCHC 32.2 01/22/2025 11:04 AM RDW 12.5 01/22/2025 11:04 AM PLT 217 01/22/2025 11:04 AM BMP: Lab Results Component Value Date/Time GLUCOSE 94 01/22/2025 06:54 AM NA 140 01/22/2025 06:54 AM K 4.2 01/22/2025 06:54 AM CL 107 01/22/2025 06:54 AM CO2 21 01/22/2025 06:54 AM ANIONGAP 12 01/22/2025 06:54 AM BUN 6 01/22/2025 06:54 AM CREATININE 0.7 01/22/2025 06:54 AM CALCIUM 8.4 01/22/2025 06:54 AM LABGLOM >90 01/22/2025 06:54 AM Radiology: FL VOIDING URETHROCYSTOGRAM S&I Result Date: 01/17/2025 1. No evidence for vesicoureteric reflux. 2. Small postvoid residual. Consultations: Consults: Final Specialist Recommendations/Findings: IP CONSULT TO UROLOGY The patient was seen and examined on day of discharge and this discharge summary is in conjunction with any daily progress note from day of discharge. Discharge plan: Disposition: Home Physician Follow Up: Adonis Guerra MD [address] [place] [address] Schedule an appointment as soon as possible for a visit in 1 week(s) Follow up for definitive stone treatment Requiring Further Evaluation/Follow Up POST HOSPITALIZATION/Incidental Findings: - Make an appoint with your primary care physician within 1 week of discharge - Follow-up with your urologist on Thursday - Continue taking antibiotics as prescribed. Diet: regular diet Activity: As tolerated Instructions to Patient: Discharge Medications: Medication List START taking these medications hyoscyamine 0.125 MG tablet Commonly known as: Levsin Take 1 tablet by mouth every 6 hours as needed for Cramping (bladder spasms, stent pain) oxyCODONE 5 MG immediate release tablet Commonly known as: Roxicodone Take 1 tablet by mouth every 6 hours as needed for Pain for up to 7 days. Intended supply: 5 days. Take lowest dose possible to manage pain Max Daily Amount: 20 mg sulfamethoxazole-trimethoprim 800-160 MG per tablet Commonly known as: BACTRIM DS;SEPTRA DS Take 1 tablet by mouth 2 times daily for 10 days tamsulosin 0.4 MG capsule Commonly known as: FLOMAX Take 1 capsule by mouth daily Where to Get Your Medications These medications were sent to [place], [place] - [address] [facility] - P [phone] - F [phone] [place] [address] hyoscyamine 0.125 MG tablet oxyCODONE 5 MG immediate release tablet sulfamethoxazole-trimethoprim 800-160 MG per tablet tamsulosin 0.4 MG capsule No discharge procedures on file. Time Spent on discharge is 33 mins in patient examination, evaluation, counseling as well as medication reconciliation, prescriptions for required medications, discharge plan and follow up. Electronically signed by Nathen Hemphill DO 01/22/2025 1:50 PM Thank you Dmoingo Becker MD for the opportunity to be involved in this patient's care. v documented in this encounter [facility] 01-22-2025 [facility] Discharg Zia Welch MD - 01/22/2025 9:27 AM EDT Cystoscopy, left ureteral stent placement: You may see blood in the urine after the procedure. This should resolve over the next couple days. Please stay hydrated. You may see intermittent blood in the urine while the stent is in place. This is expected. You may experience flank pain, and/or frequency/urgency of urination while the stent is in place. Please use Levsin and Flomax (Tamsulosin) to help with these symptoms. No heavy lifting, >10 lbs for today Pt should avoid strenuous activity for today Pt should walk moderately at home Pt ok to shower Pt may resume diet as tolerated Pt should take Rx as directed No driving while on narcotics Please call attending physician or hospital powder mill operator with questions Call or Present to ED if fever (> 101F), intractable nausea vomiting or pain. Rx e-prescribed Pt should follow up with Dr. Guerra, in 1-2 weeks, for definitive stone treatment, call to confirm appointment documented in this encounter [facility] 04-10-2024 Discharge summary Note Date/Time April 10, 2024 7:10am [facility] [address] [place] [address] Discharge Summary Signed Patient: Diana Barriga MR#: [id number] : 1990 Acct:[id number] Age/Sex: 33 / F Adm Date: 4 Loc: Room: [address] [place] [address]: Arnulfo Aviles MD Copies to: MD Domingo Tate MD~ Providers Date of Discharge: 04/10/24 Discharging Provider: Arnulfo Aviles Primary Care Provider: Domingo Snyder Consults: 04/08/24 22:58 Consult to Case Management [...] texted her stating that she is done. MHP discussed case with ER doctor who pink [...] Dr. Fenton but wants to switch to [facility]. Along with this patient is in marriage counseling with her current and that today's session was not good. Patient stated she needs to be home to take care of her kids, the custody [place], and her marriage. Patient upset because she missed her son's play and has plans to take kids to [place] tomorrow. Patient denies any suicidal ideation denies hallucinations denies racing thoughts. Patient reports that there is no changes in her appetite or sleep. Patient reports that she feels fine. She has tried a lot of medications in the past and believes none of them have worked. He is going to [facility] for psych therapy. He wants to try [...] She has an appointment coming up with [facility] She deniedrecent suicide attempts or self injures [...] Restriction Diet: Regular Instructions: Bipolar Disorder (DC), [facility] DC Instructions, Know your Meds [...] 2.01 Documented By: Arnulfo Aviles MD 4 [id number] Signed By: <Electronically signed by Arnulfo Aviles MD> 04/10/[address] [facility] Work Phone: 1(394) 577-672506-22-2024 History and physical note Author Arnulfo ornelas [facility] April 09, 2024 9:09am Note Date/Time April 09, 2024 8:43 am [facility] [address] [place] [address] Psychiatry H&P Signed Patient: Diana Barriga MR#: [id number] : 1990 Acct:[id number] Age/Sex: 33 / F Adm Date: 4 Loc: 1S Room: [address] [place] [address] Type: ADM IN Attending Dr: Arnulfo Aviles MD Copies to: MD Domingo Tate MD~ Date of Service: 04/09/2024 [facility] Narrative Narrative: Ms. Barriga is [...] Dr. Fenton but wants to switch to [facility]. Along with this patient is in marriage counseling with her current and that today's session was not good. Patient stated she needs to be home to take care of her kids, the custody [place], and her marriage. Patient upset because she missed her son's play and has plans to take kids to [place] tomorrow. Patient denies any suicidal ideation denies hallucinations denies racing thoughts. Patient reports that there is no changes in her appetite or sleep. Patient reports that she feels fine. She has tried a lot of medications in the past and believes none of them have worked. He is going to [facility] for psych therapy. He wants to try therapy before any medications. 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 Work Phone: 1(886) 596-844006-02-2023 Hospital Discharge instructions Follow Up Care 03/20/2023 11:51:58 With:IDALMIS BORDEN, Nona Turner, URL Address: [address] [place] [address]- When: Unknown [facility] 06-02-2023 Hospital Discharge instructions Patient Education 03/20/2023 [...] include: ?8 oz (237 mL) of milk, gvjsuuu-ttdjjetnmyax-ruomt milk, and calcium- fortifiedfruit juice. Calcium-fortified means [...] ?Spinach (cooked), rhubarb, beets, sweet potatoes, and Indonesian chard. ?Peanuts. ?Potato chips, montserratian fries, and baked potatoes with skin on. ?Nuts and nut products. ?Chocolate. If you regularly take a diuretic medicine, make sure to eat at least 1 or 2 servings of fruits or vegetables that are high in potassium each day. These include: ?Avocado. ?Banana. ?[place], prune, carrot, or tomato juice. ?Baked potato. [...] magnesium, fish oil, or vitamin B6. Take qjci-fio-rxtilgr and prescription medicines only as told by [...] Casseroles. Pizza. Lasagna. Frozen meals. Potato chips. Cook Islander fries. The items listed above may not [...] provider. Document Revised: 06/16/2022 Document Reviewed: 06/16/2022 Sr.Pago Patient Education 2022 Zmanda. Follow Up Care 12/26/2022 08:46:46 With:IDALMIS BORDEN, Nona Turner, URL Address: [facility] [address], [place] [address]- When: Unknown [facility] 01-20-2023 NoteOPERATIVE NOTE OPERATION DATE: 11/07/2022 PROCEDURE: Mery endometrial ablation with LEEP. PREOPERATIVE DIAGNOSIS: Cervical dysplasia, menorrhagia. POSTOPERATIVE DIAGNOSIS: Cervical dysplasia, menorrhagia. ANESTHESIA: General. SURGEON: Jefferson Gibbs D.O. MILL ORDER SCHEDULER: None. BLOOD LOSS: 50 mL. URINE OUTPUT: [...] taken to Recovery Room in stable condition.[id number] Hospital Discharge instructions Follow Up Care 09/25/2022 13:54:04 With:IDALMIS BORDEN, Nona Turner, URL Address: [address] [place], [place] [address]- When: Unknown [facility] 12-01-2022 NoteOPERATIVE NOTE OPERATION DATE: 09/18/2022 PREOPERATIVE [...] usual fashion. I started by passing a 22-Cook Islander Olympus cystoscope per urethra and into the [...] removed. She was then transferred to a gurmilton and wheeled to PACU in stable condition.[facility] [id number] NoteHNO ID: [id number] Author: Daniel Montgomery APRN.DATA MINER Service: ? Author Type: Nurse Practitioner Type: Progress Notes Filed: 09/04/2022 7:46 AM Note Text: The patient did not show up for this appointment. The patient did not show up for this appointment.[id number] History of Present illness Narrative* Daniel Montgomery APRN.DATA MINER - 09/04/2022 7:40 AM EST The patient did not show up for this appointment. The patient did not show up for this appointment. [facility] NotePROCEDURE: XR ANKLE LT MIN 3 V COMPARISON: None. HISTORY: Sprain of calcaneofibular ligament FINDINGS: BONES:No fracture, acute abnormality, or significant arthropathy. SOFT TISSUES:Extensive lateral soft tissue swelling EFFUSION:None visible. OTHER: Negative. IMPRESSION: Lateral soft tissue swelling. No acute fracture Electronically authenticated by: GLEN PEREZ Date: 2022-07-03 07:09[facility] Future Appointments Appointment Date:03/20/2023 10:15:00 AM Scheduled Provider:Nona RAYGOZA MD Location:[facility] Appointment Type:URO Office Visit [facility] evalxdxncm + Plan note Future Appointments Appointment Date:12/04/2023 09:45:00 AM Scheduled Provider:Nona RAYGOZA MD Location:[facility] Appointment Type:URO Office Visit Diagnostic Tests Pending * Electrolyte Panel 03/20/23 [facility] evalcyqzgf note* Diagnosis NO SHOW- Primary documented in this encounter [facility] note* Diagnosis Onset Date Resolution Status Bipolar disorder acute [facility] Work Phone: evaluowrcn noteNo assessment information available [facility] Work Phone: evaluation note* Diagnosis VUR (vesicoureteric reflux) Vesicoureteral reflux, unspecified or without reflux nephropathy [facility] Diagnosis Left ureteral calculus- Primary Calculus of ureter Renal calculus, left Calculus of kidney Acute postoperative pain Other acute postoperative pain Acute cystitis without hematuria Acute cystitis Acute postoperative pain Other acute postoperative pain Urinary tract obstruction by kidney stone Calculus of kidney [facility] Diagnosis Hydronephrosis with renal calculous obstruction- Primary Bilateral ureteral calculi Acute postoperative pain Other acute postoperative pain Left ureteral calculus Calculus of ureter S/P cystoscopy with ureteral stent placement Pyelonephritis Pyelonephritis, unspecified [facility] Narrative No data available for this section [facility] progress note No data available for this section [facility] reason for visit Narrative* Imaging (Routine) - Open Specialty Diagnoses / Procedures [facility] Referred To Contact Radiology Diagnoses VUR (vesicoureteric reflux) Procedures FL VOIDING URETHROCYSTOGRAM S&I Adonis Guerra MD [address] [place] [address] Phone: tel: fax: Referral ID Status Reason Start Date Expiration Date Visits Re quested Visits Authorized [id number] Open 01/09/2025 01/09/2026 1 1 [facility] [facility] Narrative* Auth/Cert Specialty Diagnoses / Procedures [facility] Referred To Contact Diagnoses Urinary tract obstruction by kidney stone UTI (urinary tract infection) Ureteral calculi Luis Felipe Delacruz MD [address] [place] [address] Phone: tel: fax: [facility] [address] [place] [address] Referral ID Status Reason Start Date Expiration Date Visits Re quested Visits Authorized [id number] [facility] for visit Narrative* Auth/Cert Specialty Diagnoses / Procedures [facility] Referred To Contact Diagnoses Hydronephrosis, left Luis Felipe Delacruz MD [address] [place] [address] Phone: tel: fax: [facility] [address] [place] [address] Referral ID Status Reason Start Date Expiration Date Visits Re quested Visits Authorized [id number] 1 1 [facility] [email or web address] Summary Purpose Family History No Family History Records Found Relationship Condition Age at Onset Recorded Date/T leonid Not Specified Hypertension Unknown family member Suicide Unknown grandparent Suicide Unknown Relationship Condition Age at Onset Recorded Date/T leonid mother Hypertension Unknown family member Suicide Unknown grandparent Suicide Unknown Advance Directives No Advanced Directives Records Found Advance Directive Response Recorded Date/ Time Advance Directives No August 13, 2022 1:51pm Advance Directive Response Recorded Date/ Time Advance Directives No August 13, 2022 12:51pm Date Activated Date Inactivated Comments 01/21/2025 11:46 PM Date Activated Date Inactivated Comments 01/26/2025 5:26 PM Date Activated Date Inactivated Comments 01/21/2025 11:46 PM 01/22/2025 6:02 PM Chief Complaint and Reason for Visit Chief Complaint bipolar- pink slip bipolar- pink slip Reason for Visit Bipolar disorder Chief Complaint Admit Date Unknown December 02, 2024 5:24pm Chief Complaint Admit Date Unknown December 02, 2024 5:24pm Unknown January 21, 2025 5:20 pm Additional Source Comments Source Comments (unrecognize d section and content) In the event this informatio n is protected by the Federal Confidentiality of Alcohol and Drug Abuse Patient Records regulations: The Federal rules restrict any use of the information to criminally investigate or prosecute any alcohol or drug abuse patient.[facility] Reason for Visit (unrecogniz ed section and content) Reason Onset Date Comments No Show 09/04/2022 No show Care Teams (unrecognized sec tion and content) Power Tong Operator Relationship Specialty Start Date End Date Domingo Snyder MD [address] [place] [address] Referring Family Medicine 09/01/22 Team Status: Active Member Role Status Dates Domingo Snyder MD Primary Care Provider Active Team Status: Inactive Member Role Status Dates Domingo Snyder MD Primary Care Provider Active Start: April 08, 2024 End: April 10, 2024 Arnulfo Aviles MD Admit Provide r, Attending Provider Active Start: April 08, 2024 End: April 10, 2024 Team Status: Active Member Role Status Dates Domingo Snyder MD Primary Care Provider Active Start: April 09, 2024 Arnulfo Aviles MD Admit Provide r, Attending Provider, Other Provider Active Start: April 09, 2024 Team Status: Inactive Member Role Status Dates Domingo Snyder MD Primary Care Provide r, Attending Provider Active Start: December 02, 2024 End: December 02, 2024 Power Tong Operator Relationship Specialty Start Date End Date Domingo Snyder MD [address] [place] [address] PCP - General Family Medicine 01/05/25 Power Tong Operator Relationship Specialty Start Date End Date Domingo Snyder MD [address] [place] [address] PCP - General Family Medicine 01/05/25 Power Tong Operator Relationship Specialty Start Date End Date Domingo Snyder MD [address] [place] [id number] PCP - General Family Medicine 01/05/25 Team Status: Inactive Member Role Status Dates Javi Tanner PA-C Attending Provider Active Start: January 21, 2025 End: January 21, 2025 Power Tong Operator Relationship Specialty Start Date End Date Domingo Snyder MD [address] [place] [id number] PCP - General Family Medicine 01/05/25 INFORMATION SOURCE (unrecogn ized section and content) DATE CREATED AUTHOR 09/06/2022 [facility] DATE CREATED AUTHOR AUTHOR'S ORGANIZ ATION 02/19/2023 [facility] DATE CREATED AUTHOR AUTHOR'S ORGANIZ ATION 12/06/2023 [facility] DATE CREATED AUTHOR AUTHOR'S ORGANIZ ATION 12/19/2023 [facility] DATE CREATED AUTHOR AUTHOR'S ORGANIZ ATION 10/05/2024 [facility] DATE CREATED AUTHOR AUTHOR'S ORGANIZ ATION 01/16/2025 [facility] DATE CREATED AUTHOR AUTHOR'S ORGANIZ ATION 01/25/2025 [facility] DATE CREATED AUTHOR AUTHOR'S ORGANIZ ATION 02/03/2025 [facility] DATE CREATED AUTHOR AUTHOR'S ORGANIZ ATION [facility] Goals (unrecognized section and content) Goals may be documented in a n alternate section Ordered Prescriptions (unrec ognized section and content) Prescription Sig Dispense Quantity Refills Last Filled Start Date End Date sulfamethoxazole-tr imethoprim (BACTRIM DS;SEPTRA DS) 800-160 MG per tablet Take 1 tablet by mouth 2 times daily for 10 days 20 tablet 01/22/2025 5 oxyCODONE (ROXICODONE) 5 MG immediate release tabletIndications:A cute postoperative pain Take 1 tablet by mouth every 6 hours as needed for Pain for up to 7 days. Intended supply: 5 days. Take lowest dose possible to manage pain Max Daily Amount: 20 mg 8 tablet 01/22/2025 5 hyoscyamine (LEVSIN) 0.125 MG tablet Take 1 tablet by mouth every 6 hours as needed for Cramping (bladder spasms, stent pain) 20 tablet 1 01/22/2025 tamsulosin (FLOMAX) 0.4 MG capsule Take 1 capsule by mouth daily 14 capsule 01/22/2025 Prescription Sig Dispense Quantity Refills Last Filled Start Date End Date ibuprofen (ADVIL;MOTRIN) 600 MG tablet Take 1 tablet by mouth 3 times daily as needed for Pain 21 tablet 01/29/2025 5 oxyCODONE (ROXICODONE) 5 MG immediate release tabletIndications:Gissel brush postoperative pain Take 1 tablet by mouth every 6 hours as needed for Pain for up to 5 days. Intended supply: 5 days. Take lowest dose possible to manage pain Max Daily Amount: 20 mg 8 tablet 01/29/2025 Scheduled Active and Recently Administ ered Medications (unrecognized section and content) Medication Order 01/20/2025 01/21/2025 01/22/2025 ceFAZolin (ANCEF) 2000 mg in sterile water 20 mL IV syringe (COMPLETED) 2,000 mg, IntraVENous, TILE FITTER TO O.R., On 01/22/25 at 0930, For 1 dose, Administer over 5 mins. 09 (MAR Hold - Provider: Tamy Autohold - Reason: Unreviewed Transfer Orders)0930 (Automatically Held - Provider: Tamy Kennyhold)0939 (Given - Provider: KONSTANTIN Baird CRNA)0940 (MAR Unhold - Provider: KONSTANTIN Baird CRNA) cefTRIAXone (ROCEPHIN) 1,000 mg in sterile water 10 mL IV syringe 1,000 mg, IntraVENous, EVERY 24 HOURS, First dose on Thu01/22/25 at 1900, For 10 days, Administer as slow IV Push over 5 mins Reconstitute 1 g vials with 9.6 mL of designated diluent to produce a 100 mg/mL solution. 927 (MAR Hold - Provider: Tamy [employer] - Reason: Unreviewed Transfer Orders)1027 (BANNER Unhold - Provider: Anastasiya Coates RN)1900 (Due - Provider: [facility]) enoxaparin (LOVENOX) injection 40 mg 40 mg, SubCUTAneous, DAILY, First dose on 01/22/25 at 0900, Until Discontinued, Indication of Use: Prophylaxis-DVT/PE, Administer by deep subCUTAneous injection with pt lying down. Alternate injection sites on abdominal wall. Do not rub site after injection. Check with provider prior to any invasive procedure. 911 (Not Given - Provider: Anastasiya Coates RN - Reason: Patient/family refused - Comment: Pt. educated on importance and intent)927 (MAR Hold - Provider: Tamy Autoh[employer] - Reason: Unreviewed Transfer Orders)1027 (BANNER Unhold - Provider: Anastasiya Coates RN) ibuprofen (ADVIL;MOTRIN) tablet 600 mg (COMPLETED) 600 mg, Oral, ONCE, 1 dose, On 01/22/25 at 0015 2359 (Given - Provider: Aundrea Beltre RN) tamsulosin (FLOMAX) capsule 0.4 mg 0.4 mg, Oral, DAILY, First dose on 01/22/25 at 0900, Until Discontinued, Do not crush or break. Give 30 minutes after a full meal to limit risk of orthostatic hypotension/falls. 0834 (Given - Provid er: Anastasiya Coates RN)0928 (MAR Hold - Provider: Tamy [employer]oh[employer] - Reason: Unreviewed Transfer Orders)1027 (BANNER Unhold - Provider: Anastasiya Coates RN) Continuous Medication Order 01/20/2025 01/21/2025 01/22/2025 0.9 % sodium chloride infusion (CANCELED) IntraVENous, at 150 mL/hr, CONTINUOUS, Starting on 01/22/25 at 0015 0002 (New Bag - Prov ider: Aundrea Beltre RN)0557 (New Bag - Provider: Aundrea Beltre, FELA)0928 (MAR Hold - Provider: [facility] [employer] - Reason: Unreviewed Transfer Orders)102 (BANNER Unhold - Provider: Anastasiya Coates RN) PRN Medication Order 01/20/2025 01/21/2025 01/22/2025 acetaminophen (TYLENOL) suppository 650 mg(Linked Group 1) 650 mg, Rectal, EVERY 6 HOURS PRN, Starting on 01/21/25 at 2346, Until Discontinued, Pain Mild (1-3), allowed for higher pain score per patient request, Fever, For temp greater than 100.4 F (38 C), Administer if oral route cannot be used. 0928 (DEC Hold - Pro vider: [facility] [employer] - Reason: Unreviewed Transfer Orders)1027 (BANNER Unhold - Provider: Anastasiya Coates RN) acetaminophen (TYLENOL) tablet 650 mg(Linked Group 1) 650 mg, Oral, EVERY 6 HOURS PRN, Starting on 01/21/25 at 2346, Until Discontinued, Pain Mild (1-3), allowed for higher pain score per patient request, Fever, For temp greater than 100.4 F (38 C), Maximum dose of acetaminophen is 4000 mg from all sources in 24 hours. 0928 (DEC Hold - Pro vider: [facility] [employer] - Reason: Unreviewed Transfer Orders)1027 (BANNER Unhold - Provider: Anastasiya Coates RN) magnesium sulfate 2000 mg in 50 mL IVPB premix 2,000 mg, IntraVENous, at 25 mL/hr, Administer over 2 Hours, PRN, Other, Magnesium Replacement, Starting on 01/21/25 at 2346, Mag Lab Replacement Action 1.4-1.6 mg/dL 2,000 mg Total Dose Given as 1,000 mg IVPB x 2 doses or 2,000 mg IVPB x 1 dose 1.0-1.3 mg/dL 4,000 mg Total Dose Given as 1,000 mg IVPB x 4 doses or 2,000 mg IVPB x 2 doses Less than 1.0 mg/dL CALL PHYSICIAN and give 4,000 mg Total Dose Given as 1,000 mg IVPB x 4 doses or 2,000 mg IVPB x 2 doses Infuse at 1,000 mg/hr Repeat Mag level 1 hour after final administration Protocol not for use in Patients with CrCl less than 30ml/min 0928 (DEC Hold - Pro vider: [facility] [employer] - Reason: Unreviewed Transfer Orders)1027 (BANNER Unhold - Provider: Anastasiya Coates RN) morphine (PF) injection 2 mg(Linked Group 2) 2 mg, IntraVENous, EVERY 2 HOURS PRN, Starting on 01/21/25 at 2346, Until Discontinued, Pain Moderate (4-6), allowed for higher pain score per patient request, If oral and IV narcotics ordered, use oral first and only use IV if oral is ineffective or cannot take oral. Do Not give oral and IV within 1 hour of each other unless specifically ordered. 0104 (See Alternativ e - Provider: Ivory Arellano)0424 (See Alternative - Provider: Aundrea Beltre RN)0832 (See Alternative - Provider: Anastasiya Coates RN)0928 (BANNER Hold - Provider: Tamy [employer] - Reason: Unreviewed Transfer Orders)1027 (BANNER Unhold - Provider: Anastasiya Coates RN) morphine injection 4 mg(Linked Group 2) 4 mg, IntraVENous, EVERY 2 HOURS PRN, Starting on 4/5/25 at 2346, Until Discontinued, Pain Severe (7-10), If oral and IV narcotics ordered, use oral first and only use IV if oral is ineffective or cannot take oral. Do Not give oral and IV within 1 hour of each other unless specifically ordered. 0104 (Given - Provid er: Ivory Arellano)0424 (Given - Provider: Aundrea Beltre RN)0832 (Given - Provider: Anastasiya Coates, FELA)0928 (MAR Hold - Provider: [facility] [employer] - Reason: Unreviewed Transfer Orders)1027 (MAR Unhold - Provider: Anastasiya Coates, RN) ondansetron (ZOFRAN) injection 4 mg(Linked Group 3) 4 mg, IntraVENous, EVERY 6 HOURS PRN, Starting on 4/5/25 at 2346, Until Discontinued, Nausea, Vomiting, Administer if oral route cannot be used. 0001 (Given - Provid er: Aundrea Beltre RN)0554 (Given - Provider: Aundrea Beltre RN)0928 (MAR Hold - Provider: Tamy [employer] - Reason: Unreviewed Transfer Orders)1027 (MAR Unhold - Provider: Anastasiya Coates, FELA) ondansetron (ZOFRAN-ODT) disintegrating tablet 4 mg(Linked Group 3) 4 mg, Oral, EVERY 8 HOURS PRN, Starting on 4/5/25 at 2346, Until Discontinued, Nausea, Vomiting 0001 (See Alternativ e - Provider: Aundrea Beltre RN)0554 (See Alternative - Provider: Aundrea Beltre RN)0928 (MAR Hold - Provider: [facility] [employer] - Reason: Unreviewed Transfer Orders)1027 (MAR Unhold - Provider: Anastasiya Coates, FELA) oxyCODONE (ROXICODONE) immediate release tablet 2.5 mg(Linked Group 4) 2.5 mg, Oral, EVERY 4 HOURS PRN, Starting on 4/5/25 at 2346, Until Discontinued, Pain Moderate (4-6), allowed for higher pain score per patient request 0000 (See Alternativ e - Provider: Aundrea Beltre RN)0928 (MAR Hold - Provider: [facility] [employer] - Reason: Unreviewed Transfer Orders)1027 (MAR Unhold - Provider: Anastasiya Coates RN)1053 (See Alternative - Provider: Anastasiya Coates RN) oxyCODONE (ROXICODONE) immediate release tablet 5 mg(Linked Group 4) 5 mg, Oral, EVERY 4 HOURS PRN, Starting on Sat 4/25 at 2346, Until Discontinued, Pain Severe (7-10) 0000 (Given - Provid er: Aundrea Beltre RN)0928 (MAR Hold - Provider: [facility] [employer] - Reason: Unreviewed Transfer Orders)1027 (MAR Unhold - Provider: Anastasiya Coates RN)1053 (Given - Provider: Anastasiya Coates RN) polyethylene glycol (GLYCOLAX) packet 17 g 17 g, Oral, DAILY PRN, Starting on Sat 425 at 2346, Until Discontinued, Constipation, First line therapy for constipation 28 (BANNER Hold - Pro vider: [facility] [employer] - Reason: Unreviewed Transfer Orders)102 (BANNER Unhold - Provider: Anastasiya Coates RN) potassium bicarb-citric acid (EFFER-K) effervescent tablet 40 mEq(Linked Group 5) 40 mEq, Oral, PRN, Starting on Sat 4 at 2346, Until Discontinued, Per Potassium Replacement Protocol, Administer as alternative if patient unable to tolerate oral tablet. K Lab Replacement Action 3.1 to 3.5 40 mEq ORAL x 1 Under 3.1 Refer to IV replacement protocol Recheck K level in AM. Protocol not for use in patients with CrCl less than 30 mL/min. Do not chew or crush. Dissolve flavored tablets completely in 3 to 4 ounces of cold water; unflavored tablets may be dissolved in 3 to 4 ounces of cold juice. Patient to sip slowly over a 5 to 10 minute period. May further dilute if GI adverse effects occur. 0928 (BANNER Hold - Pro vider: [facility] [employer] - Reason: Unreviewed Transfer Orders)1027 (BANNER Unhold - Provider: Anastasiya Coates RN) potassium chloride (KLOR-CON M) extended release tablet 40 mEq(Linked Group 5) 40 mEq, Oral, PRN, Starting on 01/21/25 at 2346, Until Discontinued, Potassium Replacement, May give alternative linked oral order (ordered as effervescent, packet, or liquid solution) if patient unable to tolerate tablet. K Lab Replacement Action 3.1 to 3.5 40 mEq ORAL x 1 Under 3.1 Refer to IV replacement protocol Recheck K level in AM. Protocol not for use in patients with CrCl less than 30 mL/min. Do not crush, chew, or suck on tablet. Tablet may also be broken in half and each half swallowed separately. 927 (BANNER Hold - Pro vider: [facility] [employer] - Reason: Unreviewed Transfer Orders)102 (BANNER Unhold - Provider: Anastasiya Coates RN) potassium chloride 10 mEq/100 mL IVPB (Peripheral Line)(Linked Group 5) 10 mEq, IntraVENous, PRN, Starting on 01/21/25 at 2346, Until Discontinued, at 100 mL/hr, Potassium Replacement, K Lab Replacement Action 2.7 to 3.0 10 mEq IVPB x 6 doses (60 mEq Total) Under 2.7 CALL PROVIDER and administer 10 mEq IVPB x 6 doses (60 mEq Total) Infuse at 10 mEq/hr. Repeat Potassium lab 1 hour after final administration. Protocol not for use in patients with CrCl less than 30 mL/min. 927 (BANNER Hold - Pro vider: [facility] [employer] - Reason: Unreviewed Transfer Orders)102 (BANNER Unhold - Provider: Anastasiya Coates RN) prochlorperazine (COMPAZINE) injection 10 mg 10 mg, IntraVENous, EVERY 6 HOURS PRN, Starting on 01/22/25 at 0756, Until Discontinued, Nausea, If administering IV push, administer at a maximum rate of 5 mg/minute. Patients should remain lying down following administration and be reassessed for relief of nausea and presence of hypotension. Patients should be assisted the first time they get up after administration. 0832 (Given - Provid er: Anastasiya Coates RN)927 (MAR Hold - Provider: Tamy [employer] - Reason: Unreviewed Transfer Orders)1027 (BANNER Unhold - Provider: Anastasiya Coates RN) sterile water for irrigation (CANCELED) PRN, Starting on 01/22/25 at 0942, Intra-op 0942 (Given - Provid er: Surendra Salinas MD) Linked Groups Order Group 1: acetaminophen (TYLENOL) tablet 650 mgJump to med 650 mg, Oral, EVERY 6 HOURS PRN, Starting on 01/21/25 at 2346, Until Discontinued, Pain Mild (1-3), allowed for higher pain score per patient request, Fever, For temp greater than 100.4 F (38 C), Maximum dose of acetaminophen is 4000 mg from all sources in 24 hours. Or acetaminophen (TYLENOL) suppository 650 mgJump to med 650 mg, Rectal, EVERY 6 HOURS PRN, Starting on 01/21/25 at 2346, Until Discontinued, Pain Mild (1-3), allowed for higher pain score per patient request, Fever, For temp greater than 100.4 F (38 C), Administer if oral route cannot be used. Group 2: morphine (PF) injection 2 mgJump to med 2 mg, IntraVENous, EVERY 2 HOURS PRN, Starting on 01/21/25 at 2346, Until Discontinued, Pain Moderate (4-6), allowed for higher pain score per patient request, If oral and IV narcotics ordered, use oral first and only use IV if oral is ineffective or cannot take oral. Do Not give oral and IV within 1 hour of each other unless specifically ordered. Or morphine injection 4 mgJump to med 4 mg, IntraVENous, EVERY 2 HOURS PRN, Starting on 01/21/25 at 2346, Until Discontinued, Pain Severe (7-10), If oral and IV narcotics ordered, use oral first and only use IV if oral is ineffective or cannot take oral. Do Not give oral and IV within 1 hour of each other unless specifically ordered. Group 3: ondansetron (ZOFRAN-ODT) disintegrating tablet 4 mgJump to med 4 mg, Oral, EVERY 8 HOURS PRN, Starting on 01/21/25 at 2346, Until Discontinued, Nausea, Vomiting Or ondansetron (ZOFRAN) injection 4 mgJump to med 4 mg, IntraVENous, EVERY 6 HOURS PRN, Starting on 01/21/25 at 2346, Until Discontinued, Nausea, Vomiting, Administer if oral route cannot be used. Group 4: oxyCODONE (ROXICODONE) immediate release tablet 2.5 mgJump to med 2.5 mg, Oral, EVERY 4 HOURS PRN, Starting on 01/21/25 at 2346, Until Discontinued, Pain Moderate (4-6), allowed for higher pain score per patient request Or oxyCODONE (ROXICODONE) immediate release tablet 5 mgJump to med 5 mg, Oral, EVERY 4 HOURS PRN, Starting on 01/21/25 at 2346, Until Discontinued, Pain Severe (7-10) Group 5: potassium chloride (KLOR-CON M) extended release tablet 40 mEqJump to med 40 mEq, Oral, PRN, Starting on 01/21/25 at 2346, Until Discontinued, Potassium Replacement, May give alternative linked oral order (ordered as effervescent, packet, or liquid solution) if patient unable to tolerate tablet. K Lab Replacement Action 3.1 to 3.5 40 mEq ORAL x 1 Under 3.1 Refer to IV replacement protocol Recheck K level in AM. Protocol not for use in patients with CrCl less than 30 mL/min. Do not crush, chew, or suck on tablet. Tablet may also be broken in half and each half swallowed separately. Or potassium bicarb-citric acid (EFFER-K) effervescent tablet 40 mEqJump to med 40 mEq, Oral, PRN, Starting on 01/21/25 at 2346, Until Discontinued, Per Potassium Replacement Protocol, Administer as alternative if patient unable to tolerate oral tablet. K Lab Replacement Action 3.1 to 3.5 40 mEq ORAL x 1 Under 3.1 Refer to IV replacement protocol Recheck K level in AM. Protocol not for use in patients with CrCl less than 30 mL/min. Do not chew or crush. Dissolve flavored tablets completely in 3 to 4 ounces of cold water; unflavored tablets may be dissolved in 3 to 4 ounces of cold juice. Patient to sip slowly over a 5 to 10 minute period. May further dilute if GI adverse effects occur. Or potassium chloride 10 mEq/100 mL IVPB (Peripheral Line)Jump to med 10 mEq, IntraVENous, PRN, Starting on 01/21/25 at 2346, Until Discontinued, at 100 mL/hr, Potassium Replacement, K Lab Replacement Action 2.7 to 3.0 10 mEq IVPB x 6 doses (60 mEq Total) Under 2.7 CALL PROVIDER and administer 10 mEq IVPB x 6 doses (60 mEq Total) Infuse at 10 mEq/hr. Repeat Potassium lab 1 hour after final administration. Protocol not for use in patients with CrCl less than 30 mL/min. Scheduled Medication Order 01/27/2025 01/28/2025 01/29/2025 cefTRIAXone (ROCEPHIN) 1,000 mg in sterile water 10 mL IV syringe 1,000 mg, IntraVENous, EVERY 24 HOURS, First dose on Julia 01/26/25 at 2045, Administer as slow IV Push over 5 mins Reconstitute 1 g vials with 9.6 mL of designated diluent to produce a 100 mg/mL solution. 1440 (MAR Hold - Provider: Tamy [employer] - Reason: Unreviewed Transfer Orders)1744 (MAR Unhold - Provider: Balwinder Ashton RN)2032 (Given - Provider: Gretchen Tony) 2130 (Given - Provider: Gretchen Tony) 2044 (Due) enoxaparin (LOVENOX) injection 40 mg 40 mg, SubCUTAneous, DAILY, First dose (after last modification) on Thu01/27/25 at 0900, Until Discontinued, Indication of Use: Prophylaxis-DVT/PE 0900 (Automatically Held - Provider: Glen Desai MD)0932 (Unheld by provider - Provider: Nathen Kearns DO)1440 (MAR Hold - Provider: Tamy [employer] - Reason: Unreviewed Transfer Orders)1744 (MAR Unhold - Provider: Balwinder Ashton RN) 0901 (Not Given - Provider: Balwinder Ashton RN - Reason: Patient/family refused) 0817 (Not Given - Provider: Balwinder Ashton RN - Reason: Patient/family refused) sodium chloride flush 0.9 % injection 5-40 mL 5-40 mL, IntraVENous, EVERY 12 HOURS SCHEDULED (2 times per day), First dose on Thu01/26/25 at 2100, Until Discontinued, For Line Patency: Peripheral IV = 5 mL; Midline or Central Line = 10 mL/lumen. If following IV push medication, administer flush at same rate as the IV push. Flush volume is determined by type of infusion therapy being given. For non-viscous solutions use: Peripheral IV = 5 mL Midline or Central Line = 10 mL/lumen For viscous solutions (i.e. blood components, parenteral nutrition, contrast media, or after obtaining blood sample) use: Peripheral IV = 10 mL Midline or Central Line = 20 mL/lumen 0904 (Given - Provider: Yamel Leavitt)1440 (DEC Hold - Provider: aTmy [employer] - Reason: Unreviewed Transfer Orders)1744 (MAR Unhold - Provider: Balwinder Ashton RN)203 (Given - Provider: Gretchen Tony) 0900 (Given - Provider: Balwinder Ashton, FELA)2200 (Given - Provider: Gretchen Tony) 0817 (Not Given - Provider: Balwinder Ashton RN - Reason: Other)2100 (Due) tamsulosin (FLOMAX) capsule 0.4 mg 0.4 mg, Oral, DAILY, First dose on Thu01/27/25 at 0900, Until Discontinued, Do not crush or break. Give 30 minutes after a full meal to limit risk of orthostatic hypotension/falls. 0904 (Given - Provider: Yamel Leavitt)1440 (DEC Hold - Provider: Tamy [employer] - Reason: Unreviewed Transfer Orders)1744 (MAR Unhold - Provider: Balwinder Ashton RN) 0858 (Given - Provider: Balwinder Ashton RN) 0812 (Given - Provider: Balwinder Ashton RN) Continuous Medication Order 01/27/2025 01/28/2025 01/29/2025 0.9 % sodium chloride infusion () IntraVENous, at 75 mL/hr, CONTINUOUS, Starting on Julia 01/26/25 at 1745, For 12 hours 0400 (Rate/Dose Verify - Provider: Gretchen Tony)0800 (Rate/Dose Change - Provider: Gretchen Tony)0802 (Rate/Dose Change - Provider: Gretchen Tony)1443 (Stopped - Provider: Gretchen Tony) PRN Medication Order 01/27/2025 01/28/2025 01/29/2025 0.9 % sodium chloride infusion IntraVENous, at 5-250 mL/hr, PRN, if patient receiving piggyback infusions and maintenance fluids are not ordered OR KVO fluids to protect IV site / prevent frequent line interruptions/ long duration, Starting on Julia 01/26/25 at 1726, For piggyback infusion, administer at same rate as piggyback for a total of 25 mL. Enter 25 mL into dose field and piggyback rate into rate field of order. If piggyback is infusing at a rate less than 100 mL/hr, enter 25 mL into dose field and 100 mL/hr into rate field of order. For KVO fluids, enter rate of 20 mL/hr or less into rate field of order. 1440 (BANNER Hold - Provider: Tamy [employer] - Reason: Unreviewed Transfer Orders)1744 (BANNER Unhold - Provider: Balwinder Ashton RN) acetaminophen (TYLENOL) tablet 650 mg 650 mg, Oral, EVERY 6 HOURS PRN, Starting on Julia 01/26/25 at 2128, Until Discontinued, Pain Mild (1-3), allowed for higher pain score per patient request, Maximum dose of acetaminophen is 4000 mg from all sources in 24 hours. 1440 (BANNER Hold - Provider: [facility] [employer] - Reason: Unreviewed Transfer Orders)1744 (BANNER Unhold - Provider: Balwinder Ashton RN) diatrizoate meglumine (CYSTOGRAFIN) 30 % solution (CANCELED) PRN, Starting on Thu01/27/25 at 1553, Until Thu01/27/25 at 1601, Intra-op 1553 (Given - Provider: Edwina Espino MD) fentaNYL (SUBLIMAZE) injection 50 mcg (COMPLETED) 50 mcg, IntraVENous, EVERY 5 MIN PRN, 2 doses, Starting on Thu01/27/25 at 1658, Until Thu01/27/25 at 1707, Pain Severe (7-10), For Phase I. If Phase II oral narcotics have been administered in the last 60 minutes, do not administer IV narcotics unless specifically approved by provider., PACU only 1702 (Given - Provider: Maureen Savage RN)1707 (Given - Provider: Maureen Savage RN) HYDROmorphone (DILAUDID) injection 0.5 mg 0.5 mg, IntraVENous, EVERY 3 HOURS PRN, Starting on Julia 01/26/25 at 1736, Until Discontinued, Pain Severe (7-10), If oral and IV narcotics ordered, use oral first and only use IV if oral is ineffective or cannot take oral. Do Not give oral and IV within 1 hour of each other unless specifically ordered. 0102 (Given - Provider: Sabra Beard RN)0359 (Given - Provider: Sabra Beard RN)0717 (Given - Provider: Balwinder Ashton RN)1014 (Given - Provider: Balwinder Ashton RN)1329 (Given - Provider: Balwinder Ashton RN)1440 (DEC Hold - Provider: [facility] [employer] - Reason: Unreviewed Transfer Orders)1744 (DEC Unhold - Provider: Balwinder Ashton RN)1840 (Given - Provider: Balwinder Ashton RN)2234 (Given - Provider: Gretchen Tony) 0212 (Given - Provider: Gretchen Tony)0554 (Given - Provider: Gretchen Tony)0859 (Given - Provider: Balwinder Ashton RN)1204 (Given - Provider: Maryam Avila)1510 (Given - Provider: Maryam Avila)1813 (Given - Provider: Maryam Avila)2131 (Given - Provider: Gretchen Tony) 0239 (Given - Provider: Gretchen Tony)0812 (Given - Provider: Balwinder Ashton RN) hyoscyamine (LEVSIN/SL) sublingual tablet 0.125 mg 0.125 mg, Oral, EVERY 6 HOURS PRN, Starting on Julia 01/26/25 at 1726, Until Discontinued, Cramping, bladder spasms, stent pain 0359 (Given - Provider: Sabra Beard RN)1440 (DEC Hold - Provider: [facility] [employer] - Reason: Unreviewed Transfer Orders)1744 (DEC Unhold - Provider: Balwinder Ashton RN)2033 (Given - Provider: Gretchen Tony) 0453 (Given - Provider: Gretchen Tony) ketorolac (TORADOL) injection 30 mg 30 mg, IntraVENous, EVERY 6 HOURS PRN, Starting on Julia 01/26/25 at 2128, Until Thu01/31/25 at 2126, Pain Moderate (4-6), allowed for higher pain score per patient request, Pain Severe (7-10), Do not administer for more than 5 days. 0717 (Given - Provider: Balwinder Ashton RN)1440 (DEC Hold - Provider: [facility] [employer] - Reason: Unreviewed Transfer Orders)1744 (MAR Unhold - Provider: Balwinder Ashton RN)1759 (Given - Provider: Balwinder Ashton RN) 0452 (Given - Provider: Gretchen Tony)1106 (Given - Provider: Balwinder Ashton RN)1723 (Given - Provider: Maryam Avila) 0141 (Given - Provider: Gretchen Tony)0812 (Given - Provider: Balwinder Ashton RN) ondansetron (ZOFRAN) injection 4 mg(Linked Group 1) 4 mg, IntraVENous, EVERY 6 HOURS PRN, Starting on Julia 4/25 at 1726, Until Discontinued, Nausea, Vomiting, Administer if oral route cannot be used. 0806 (Given - Provider: Balwinder Ashton RN)1440 (BANNER Hold - Provider: Tamy [employer] - Reason: Unreviewed Transfer Orders)1744 (BANNER Unhold - Provider: Balwinder Ashton RN) 1203 (Given - Provider: Maryam Avila) ondansetron (ZOFRAN-ODT) disintegrating tablet 4 mg(Linked Group 1) 4 mg, Oral, EVERY 8 HOURS PRN, Starting on Julia 425 at 1726, Until Discontinued, Nausea, Vomiting 0806 (See Alternative - Provider: Balwinder Ashton RN)1440 (BANNER Hold - Provider: Tamy [employer] - Reason: Unreviewed Transfer Orders)1744 (BANNER Unhold - Provider: Balwinder Ashton RN) 1203 (See Alternative - Provider: Maryam Avila) oxyCODONE-acetaminophen (PERCOCET) 5-325 MG per tablet 2 tablet 2 tablet, Oral, EVERY 4 HOURS PRN, Starting on Julia 425 at 1736, Until Discontinued, Pain Mild (1-3), allowed for higher pain score per patient request, Pain Moderate (4-6), allowed for higher pain score per patient request, Maximum dose of acetaminophen is 4000 mg from all sources in 24 hours. 0008 (Given - Provider: Sabra Beard RN)1440 (BANNER Hold - Provider: [facility] [employer] - Reason: Unreviewed Transfer Orders)1744 (BANNER Unhold - Provider: Balwinder Ashton RN)203 (Given - Provider: Gretchen Tony) 0709 (Given - Provider: Gretchen Tony)1106 (Given - Provider: Balwinder Ashton RN)1610 (Given - Provider: Maryam Avila) 0040 (Given - Provider: Gretchen Tony)0711 (Given - Provider: Gretchen Tony) polyethylene glycol (GLYCOLAX) packet 17 g 17 g, Oral, DAILY PRN, Starting on Thu01/26/25 at 1726, Until Discontinued, Constipation, First line therapy for constipation 1440 (BANNER Hold - Provider: Tamy [employer]ohold - Reason: Unreviewed Transfer Orders)1744 (BANNER Unhold - Provider: Balwinder Ashton RN) prochlorperazine (COMPAZINE) injection 10 mg 10 mg, IntraVENous, EVERY 6 HOURS PRN, Starting on Thu01/27/25 at 1317, Until Discontinued, Nausea, second line after Zofran, If administering IV push, administer at a maximum rate of 5 mg/minute. Patients should remain lying down following administration and be reassessed for relief of nausea and presence of hypotension. Patients should be assisted the first time they get up after administration. 1330 (Given - Provider: Balwinder Ashton RN)1440 (BANNER Hold - Provider: Tamy Autohold - Reason: Unreviewed Transfer Orders)1744 (BANNER Unhold - Provider: Balwinder Ashton RN) sod chloride IRR soln 0.9 % irrigation (CANCELED) CONTINUOUS PRN, Starting on Thu01/27/25 at 1526, Intra-op 1526 (New Bag - Provider: Edwina Espino MD)1805 (Stopped - Provider: Balwinder Ashton RN - Comment: [Order ends at this time. Document a Stopped action when infusion is complete.]) sodium chloride flush 0.9 % injection 5-40 mL 5-40 mL, IntraVENous, PRN, Starting on Thu01/26/25 at 1726, Until Discontinued, Line Care, After every IV line use, For Line Patency: Peripheral IV = 5 mL; Midline or Central Line = 10 mL/lumen. If following IV push medication, administer flush at same rate as the IV push. Flush volume is determined by type of infusion therapy being given. For non-viscous solutions use: Peripheral IV = 5 mL Midline or Central Line = 10 mL/lumen For viscous solutions (i.e. blood components, parenteral nutrition, contrast media, or after obtaining blood sample) use: Peripheral IV = 10 mL Midline or Central Line = 20 mL/lumen 1440 (DEC Hold - Provider: Tamy Autohold - Reason: Unreviewed Transfer Orders)1744 (DEC Unhold - Provider: Balwinder Ashton RN) Linked Groups Order Group 1: ondansetron (ZOFRAN-ODT) disintegrating tablet 4 mgJump to med 4 mg, Oral, EVERY 8 HOURS PRN, Starting on Julia 01/26/25 at 1726, Until Discontinued, Nausea, Vomiting Or ondansetron (ZOFRAN) injection 4 mgJump to med 4 mg, IntraVENous, EVERY 6 HOURS PRN, Starting on Julia 01/26/25 at 1726, Until Discontinued, Nausea, Vomiting, Administer if oral route cannot be used. FOR RECORDS PERTAINING TO PATIENTS WHO ARE [...] BE BASED ON THE PRIMARY CLINICAL RECORDS. [facility]. provides no warranty or guarantee of the accuracy or completeness of information in this document.
--- OUTSIDE RECORDS SUMMARY | 2025-03-28 06:50 | XMS_ITS | Clinical Summary ---
Author Organization [facility] Address [address] [place] [address] Care Team Providers Care [employer] Supervisor Name Role Phone Ignacio Das MD Primary Care Provider [phone] Allergies No known active allergies Medications tamsulosin (FLOMAX) 0.4 MG capsule Take 1 capsule by mouth daily 14 capsule 01/22/2025 Active hyoscyamine (LEVSIN) 0.125 MG tablet Take 1 tablet by mouth every 6 hours as needed for Cramping (bladder spasms, stent pain) 20 tablet 1 01/22/2025 Active ibuprofen (ADVIL;MOTRIN) 600 MG tablet Take 1 tablet by mouth 3 times daily as needed for Pain 21 tablet 01/29/2025 Active Active Problems Problem Noted Date Diagnosed Date Pyelonephritis 01/27/2025 Hydronephrosis of left kidney 01/26/2025 S/P cystoscopy with ureteral stent placement 07/2025 Hydronephrosis with renal calculous obstruction 01/26/2025 Acute cystitis without hematuria 01/22/2025 Acute postoperative pain 01/22/2025 Urinary tract obstruction by kidney stone 2024 Left ureteral calculus 01/21/2025 Encounters Date Type Department Care Team Description 01/27/2025 3:04 PM EDT Anesthesia Event [facility] OR [address] [place] [id number] Corey Crowder MD Newman, Jessica, MD 01/27/2025 2:32 PM EDT - 01/27/2025 3:21 PM EDT Surgery [facility] OR [address] [place] [address] 27800 Azar Espino MD CYSTOSCOPY, RIGHT RETROGRADE PYELOGRAM, BILATERAL URETEROSCOPY WITH LEFT HOLMIUM LASER LITHOTRIPSY, RIGHT URETERAL STENT PLACEMENT, LEFT URETERAL STENT EXCHANGE 01/26/2025 5:25 PM EDT - 01/29/2025 9:42 AM EDT Hospital Encounter [facility] Renal//Med Surg [address] [place] [address] Luis Felipe Delacruz MD Mashaleh, Mohammad I, Bilateral ureteral calculi; Acute postoperative pain Discharge Disposition: Home or Self Care 01/26/2025 Travel 01/22/2025 9:28 AM EDT Anesthesia Event [facility] OR [address] [place] [address] Toño Carr MD Rissman, Stacey, [employer] CUTTER - RECORDS MANAGEMENT COORDINATOR 01/22/2025 8:50 AM EDT - 01/22/2025 9:21 AM EDT Surgery [facility] OR [address] [place] [address]254 Sanya Trevizo MD CYSTOSCOPY URETERAL STENT INSERTION 01/22/2025 Travel 01/21/2025 11:43 PM EDT - 01/22/2025 3:45 PM EDT Hospital Encounter [facility] 3C MED SURG [address] [place] [address] Luis Felipe Delacruz MD Steve, Nicholas, Nathen Phillips I, Acute postoperative pain (Primary Dx); Renal calculus, left Discharge Disposition: Home or Self Care 01/17/2025 7:48 AM EDT - 01/19/2025 11:59 PM EDT Hospital Encounter [facility] Radiology [address] [place] [address] 35773 Adonis Sanchez MD VUR (vesicoureteric reflux) Discharge Disposition: Home or Self Care 01/17/2025 7:47 AM EDT - 01/19/2025 11:59 PM EDT Hospital Encounter [facility] Special Procedures [address] [place] [address] Discharge Disposition: Home or Self Care 01/09/2025 Transcribe Orders [facility] [address] [id number] Adonis Sanchez MD VUR (vesicoureteric reflux) (Primary Dx) 01/05/2025 1:54 PM EDT - 01/07/2025 11:59 PM EDT Hospital [facility] Medicine [address] [place] [address] Pyelonephritis; VUR (vesicoureteric reflux) Discharge Disposition: Home or Self Care from Last 3 Months Social History Tobacco Use Types Packs/Day Years Used Date Smoking Tobacco: Never Smokeless Tobacco: Never Tobacco Cessation:Counseling Given: No Alcohol Use Standard Drinks/Week Comments Not Currently 0 (1 standard drink = 0.6 oz pur e alcohol) [facility] Utilities Answer Date Recorded In the past 12 months has th e [employer], gas, oil, or water [employer] threatened to shut off services in your home? No 01/26/2025 Hunger Vital Sign Answer Date Recorded Within the past 12 months, y ou worried that your food would run out before you got the money to buy more. Never true 01/27/20 25 Within the past 12 months, t he food you bought just didn't last and you didn't have money to get more. Never true 01/26/2025 PRAPARE - Transportation Answer Date Re corded In the past 12 months, has l ack of transportation kept you from medical appointments or from getting medications? No 01/17 In the past 12 months, has l ack of transportation kept you from meetings, work, or from getting things needed for daily living? No 01/26/2025 Housing Stability Vital Sign Answer Teddy e Recorded In the last 12 months, was t here a time when you were not able to pay the mortgage or rent on time? No 01/26/2025 In the past 12 months, how m any times have you moved where you were living? 0 01/26/2025 At any time in the past 12 m [facility], were you homeless or living in a fpc (including now)? No 01/26/2025 Food Insecurity Answer Date Recorded Within the past 12 months, y ou worried that your food would run out before you got the money to buy more. 1 01/26/2025 Within the past 12 months, t he food you bought just didn't last and you didn't have money to get more. 1 01/26/2025 Interpersonal Safety Domain Source: IP Abuse Scr eening Answer Date Recorded Physical abuse Denies 01/26/2025 Verbal abuse Denies 01/26/2025 Emotional abuse Denies 01/26/2025 Financial abuse Denies 01/26/2025 Sexual abuse Denies 01/26/2025 Comments Unknown Sex and Gender Information Value Date Recorded Sex Assigned at Not on file Legal Sex Female 12:31 PM EST Gender Identity Not on file Sexual Orientation Not on file Last Filed Vital Signs Vital Sign Reading Time Taken Comments Blood Pressure 129/86 01/29/2025 9:23 AM EDT Pulse 81 01/29/2025 9:23 AM EDT Temperature 36.7 C (98.1 F) 01/29/2025 9:23 AM EDT Respiratory Rate 18 01/29/2025 9:23 AM EDT Oxygen Saturation 100% 01/29/2025 9:23 AM EDT Inhaled Oxygen Concentration - - Weight 81.5 kg (179 lb 10.8 oz) 01/29/2025 6:00 AM EDT Height 167.6 cm (5' 5.98 ) 01/27/2025 1 0:01 AM EDT Body Mass Index 29.01 01/27/2025 10:01 AM EDT Plan of Treatment Health Maintenance Due Date Last Done Comments Polio vaccine (4 of 4 - 4-dose series) 1995 04/10/1993, 01/18/1992, 1991 Depression Screen 2003 Varicella vaccine (1 of 2 - 13+ 2-dose series) 2004 HIV screen 2006 Hepatitis C screen 2009 Pap smear 2012 Cervical cancer screen 2021 HPV (without or with Pap) 2021 COVID-19 Vaccine ( season) 2024 Flu vaccine (Season Ended) 05/19/202508/01, 08/08/2018, 08/22/2009 DTaP/Tdap/Td vaccine (7 - Td or Tdap) 02/06/2031 02/06/2021, 08/09/2018, 04/10/1993, Additional history exists Hib vaccine Completed 12/28/1992, 05/1992, 01/18/1992, Additional history exists Hepatitis B vaccine Completed 06/19/2004, 03/27/2004, 12/18/2003 HPV vaccine Aged Out No longer eligi ble based on patient's age to complete this topic Hepatitis A vaccine Aged Out No longe r eligible based on patient's age to complete this topic Meningococcal (ACWY) vaccine Aged Out No longer eligible based on patient's age to complete this topic Meningococcal B vaccine Aged Out No l onger eligible based on patient's age to complete this topic Pneumococcal 0-49 years Vaccine Aged Out No longer eligible based on patient's age to complete this topic Medical Devices Implanted Type Area Cartoon Designer Device Identifier Shelf Expiration Date Model / Serial / Lot Stent Uret 6fr L26cm Percflx Hydr+ Tapr Tip Grad - [id number] Implanted:Qty : 1 on 01/22/2025 by Sanya Trevizo MD at [facility] Left: Ureter [employer] [id number] 09/06/2027 [id number] 30 / / [id number] Stent Uret 6fr L26cm Percflx Hydr+ Dbl Pgtl Thrd 2 - [id number] Implanted:Qty : 1 on 01/27/2025 by Azar Espino MD at [facility] Left: Ureter [employer] [id number] 11/24/2027 [id number] 30 / / [id number] Stent Uret 6fr L26cm Percflx Hydr+ Dbl Pgtl Thrd 2 - [id number] Implanted:Qty : 1 on 01/27/2025 by Azar Espino MD at [facility] Right: Ureter [employer] [id number] 11/24/2027 [id number] 30 / / [id number] Procedures Procedure Name Priority Date/Time Associated Diagnosis Comments FLUORO FOR SURGICAL PROCEDURES Routine 01/27/2025 4:01 PM EDT CULTURE, URINE Routine 01/27/2025 3:44 PM EDT Bilateral ureteral calculi CYSTOSCOPY URETEROSCOPY LASER 01/27/2025 3:02 PM EDT Bilateral ureteral calculi CULTURE, BLOOD 1 STAT 01/27/2025 2:30 PM EDT CULTURE, BLOOD 1 STAT 01/27/2025 9:59 AM EDT CBC WITH AUTO DIFFERENTIAL Routine 01/27/2025 7:28 AM EDT BASIC METABOLIC PANEL Routine 01/27/2025 7:28 AM EDT BASIC METABOLIC PANEL STAT 01/26/2025 6:51 PM EDT CBC STAT 01/26/2025 6:51 PM EDT MICROSCOPIC URINALYSIS Routine 5:53 PM EDT URINALYSIS WITH REFLEX TO CULTURE [employer] Label Print 01/26/2025 5:53 PM EDT CULTURE, URINE Routine 01/26/2025 5:53 PM EDT LACTIC ACID Routine 01/22/2025 11:04 AM EDT PREVIOUS SPECIMEN Routine 01/22/2025 11:04 AM EDT CBC WITH AUTO DIFFERENTIAL Routine 01/22/2025 11:04 AM EDT FLUORO FOR SURGICAL PROCEDURES Routine 01/22/2025 9:44 AM EDT CULTURE, URINE Routine 01/22/2025 9:43 AM EDT Renal calculus, left CYSTOSCOPY URETERAL STENT INSERTION 01/22/2025 9:28 AM EDT Renal calculus, left BASIC METABOLIC PANEL Routine 01/22/2025 6:54 AM EDT STONE ANALYSIS [employer] Label Print 01/22/2025 4:44 AM EDT FL VOIDING URETHROCYSTOGRAM S&I Routine 01/17/2025 8:59 AM EDT VUR (vesicoureteric reflux) NM KIDNEY W FLOW AND FUNCTION W PHARMACOLOGICAL INTERVENTION Routine 01/05/2025 3:20 PM EDT Pyelonephritis VUR (vesicoureteric reflux) from Last 3 Months Results * FLUORO FOR SURGICAL PROCEDURES (01/27/2025 4:01 PM EDT) Only the most recent of2 resultswithin the time period is included. Narrative [facility] - 01/27/2025 4:02 PM EDT Radiology exam is complete. No Radiologist dictation. Please follow up with ordering provider. us Azar Espino MD IMG FLUOROSCOPY ORDERABLES Fin al Result Performing Organization Address City/[facility]/ZIP Co de Phone Number [facility] * Culture, Urine (01/27/2025 3:44 PM EDT) Only the most recent of3 resultswithin the time period is included. Specimen Description .BLADDER URINE FROM CYSTOSCOPY 01/27/2025 3:44 PM EDT [facility] Special Requests Site: Urine 01/27/2025 3:44 PM EDT [facility] Culture NO GROWTH 01/27/2025 3:44 PM EDT [facility] Urine URINE SPECIMEN OBTAINED FROM URINARY BLADDER BY CYSTOSCOPY / Unknown 01/27/2025 3:29 PM EDT Comment:Pre-op diagnosis: Bilateral ureteral calculi [N20.1] Azar Espino MD MICROBIOLOGY - GENERAL ORDERAB LES Final Result [facility] [address] [place] [address], [facility] [phone] * Culture, Blood 1 (01/27/2025 2:30 PM EDT) Only the most recent of2 resultswithin the time period is included. Specimen Description .BLOOD 01/27/2025 2:30 PM EDT [facility] Special Requests 01/27/2025 2:30 PM EDT [facility] Culture NO GROWTH 5 DAYS 01/27/2025 2:30 PM EDT [facility] BLOOD SPECIMEN / Unknown 01/27/2025 2:30 PM EDT 01/27/2025 2:42 PM EDT us Nathen Hemphill I, DO MICROBIOLOGY - GENERAL O RDERABLES Final Result [facility] [address] [place] [address], [facility] [phone] * (ABNORMAL) CBC auto differential (01/27/2025 7:28 AM EDT) Only the most recent of2 resultswithin the time period is included. Pathologist [facility] WBC 3.9 3.5 - 11.3 k/uL 01/27/2025 7:28 AM EDT [facility] RBC 3.95 3.95 - 5.11 m/uL 01/27/2025 7:28 AM EDT [facility] Hemoglobin 10.7(L) 11.9 - 15.1 g/dL 01/27/2025 7:28 AM EDT [facility] Hematocrit 34.2(L) 36.3 - 47.1 % 01/27/2025 7:28 AM EDT [facility] MCV 86.6 82.6 - 102.9 fL 01/27/2025 7:28 AM EDT [facility] MCH 27.1 25.2 - 33.5 pg 01/27/2025 7:28 AM EDT [facility] MCHC 31.3 28.4 - 34.8 g/dL 01/27/2025 7:28 AM EDT [facility] RDW 12.6 11.8 - 14.4 % 01/27/2025 7:28 AM EDT [facility] Platelets 238 138 - 453 k/uL 01/27/2025 7:28 AM EDT [facility] MPV 9.1 8.1 - 13.5 fL 01/27/2025 7:28 AM EDT [facility] NRBC Automated 0.0 0.0 per 100 WBC 01/27/2025 7:28 AM EDT [facility] Neutrophils % 31(L) 36 - 65 % 01/27/2025 7:28 AM EDT [facility] Lymphocytes % 55(H) 24 - 43 % 01/27/2025 7:28 AM EDT [facility] Monocytes % 9 3 - 12 % 01/27/2025 7:28 AM EDT [facility] Eosinophils % 4 1 - 4 % 01/27/2025 7:28 AM EDT [facility] Basophils % 1 0 - 2 % 01/27/2025 7:28 AM EDT [facility] Immature Granulocytes % 0 0 % 01/27/2025 7:28 AM EDT [facility] Neutrophils Absolute 1.21(L) 1.50 - 8.10 k/uL 01/27/2025 7:28 AM EDT [facility] Lymphocytes Absolute 2.11 1.10 - 3.70 k/uL 01/27/2025 7:28 AM EDT [facility] Monocytes Absolute 0.35 0.10 - 1.20 k/uL 01/27/2025 7:28 AM EDT [facility] Eosinophils Absolute 0.14 0.00 - 0.44 k/uL 01/27/2025 7:28 AM EDT [facility] Basophils Absolute 0.04 0.00 - 0.20 k/uL 01/27/2025 7:28 AM EDT [facility] Immature Granulocytes Absolute <0.03 0.00 - 0.30 k/uL 01/27/2025 7:28 AM EDT [facility] Blood BLOOD SPECIMEN / Unknown 01/27/2025 7:28 AM EDT 01/27/2025 7:59 AM EDT us Kyung Miester [employer] CUTTER - SEAM RUBBER HEMATOLOGY ORDERABLES Fi nal Result [facility] [address] [place] [address], [facility] [phone] * (ABNORMAL) Basic metabolic panel (01/27/2025 7:28 AM EDT) Only the most recent of3 resultswithin the time period is included. Pathologist [facility] Sodium 139 136 - 145 mmol/L 01/27/2025 7:28 AM EDT [facility] Potassium 3.9 3.7 - 5.3 mmol/L 01/27/2025 7:28 AM EDT [facility] Chloride 108(H) 98 - 107 mmol/L 01/27/2025 7:28 AM EDT [facility] CO2 22 20 - 31 mmol/L 01/27/2025 7:28 AM EDT [facility] Anion Gap 9 9 - 16 mmol/L 01/27/2025 7:28 AM EDT [facility] Glucose 85 74 - 99 mg/dL 01/27/2025 7:28 AM EDT [facility] BUN 11 6 - 20 mg/dL 01/27/2025 7:28 AM EDT [facility] Creatinine 0.7 0.6 - 0.9 mg/dL 01/27/2025 7:28 AM EDT [facility] Est, Glom Filt Rate >90 >60 mL/min/1. 73m2 01/27/2025 7:28 AM EDT [facility] Comment: These results are not intended for [...] following therapy that affects renal tubular secretion. Calcium 8.3(L) 8.6 - 10.4 mg/dL 01/27/2025 7:28 AM EDT [facility] BLOOD SPECIMEN / Unknown 01/27/2025 7:28 AM EDT 01/27/2025 7:59 AM EDT us Kyung Barkley [employer] CUTTER - SEAM RUBBER CHEMISTRY ORDERABLES Fin al Result [facility] [address] [place] [address], [facility] [phone] * CBC (01/26/2025 6:51 PM EDT) WBC 5.9 3.5 - 11.3 k/uL 01/26/2025 6:51 PM EDT [facility] RBC 4.30 3.95 - 5.11 m/uL 01/26/2025 6:51 PM EDT [facility] Hemoglobin 12.0 11.9 - 15.1 g/dL 01/26/2025 6:51 PM EDT [facility] Hematocrit 38.1 36.3 - 47.1 % 01/26/2025 6:51 PM EDT [facility] MCV 88.6 82.6 - 102.9 fL 01/26/2025 6:51 PM EDT [facility] MCH 27.9 25.2 - 33.5 pg 01/26/2025 6:51 PM EDT [facility] MCHC 31.5 28.4 - 34.8 g/dL 01/26/2025 6:51 PM EDT [facility] RDW 12.7 11.8 - 14.4 % 01/26/2025 6:51 PM EDT [facility] Platelets 261 138 - 453 k/uL 01/26/2025 6:51 PM EDT [facility] MPV 9.0 8.1 - 13.5 fL 01/26/2025 6:51 PM EDT [facility] NRBC Automated 0.0 0.0 per 100 WBC 01/26/2025 6:51 PM EDT [facility] Blood BLOOD SPECIMEN / Unknown 01/26/2025 6:51 PM EDT 01/26/2025 7:02 PM EDT us Andrzej Desai MD HEMATOLOGY ORDERABLES Final Res ult [facility] [address] [place] [address] * (ABNORMAL) Urinalysis with Reflex to Culture (01/26/2025 5:53 PM EDT) Color, UA [place](A) Yellow 01/26/2025 5:53 PM EDT [facility] Comment:INTERPRET WITH CAUTI ON DUE TO INTENSE COLOR OF URINE. Turbidity UA Cloudy(A) Clear 01/26/2025 5:53 PM EDT [facility] Glucose, Ur NEGATIVE NEGATIVE mg/dL 01/26/2025 5:53 PM EDT [facility] Bilirubin, Urine NEGATIVE NEGATIVE 01/26/2025 5:53 PM EDT [facility] Ketones, Urine NEGATIVE NEGATIVE mg/dL 01/26/2025 5:53 PM EDT [facility] Specific [place], UA 1.016 1.005 - 1.030 01/26/2025 5:53 PM EDT [facility] Urine Hgb LARGE(A) NEGATIVE 01/26/2025 5:53 PM EDT [facility] pH, Urine 6.5 5.0 - 8.0 01/26/2025 5:53 PM EDT [facility] Protein, UA 2+(A) NEGATIVE mg/dL 01/26/2025 5:53 PM EDT [facility] Urobilinogen, Urine Normal 0.0 - 1.0 EU/dL 01/26/2025 5:53 PM EDT [facility] Nitrite, Urine NEGATIVE NEGATIVE 01/26/2025 5:53 PM EDT [facility] Leukocyte Esterase, Urine MODERATE(A) NEGATIVE 01/26/2025 5:53 PM EDT [facility] Urine 01/26/2025 5:53 PM EDT 01/26/2025 5:53 PM EDT Andrzej Desai MD URINE ORDERABLES Final Result [facility] [address] [place] [address], [facility] [phone] * Microscopic Urinalysis (01/26/2025 5:53 PM EDT) WBC, UA 20 TO 50 0 - 5 /HPF 01/26/2025 5:53 PM EDT [facility] RBC, UA TOO NUMEROUS TO COUNT 0 - 4 /HPF 01/26/2025 5:53 PM EDT [facility] Comment:Reference range defi salty for non-centrifuged specimen. Casts UA 2 TO 5 HYALINE Reference range defined for non-centrifug ed specimen. 0 - 8 /LPF 01/26/2025 5:53 PM EDT [facility] Epithelial Cells, UA 2 TO 5 0 - 5 /HPF 01/26/2025 5:53 PM EDT [facility] Bacteria, UA None None 01/26/2025 5:53 PM EDT [facility] 01/26/2025 5:53 PM EDT 01/26/2025 5:53 PM EDT Andrzej Desai MD URINE ORDERABLES Final Result Performing Organization Address [facility] Phone Number [address] [phone] * PREVIOUS SPECIMEN (01/22/2025 11:04 AM EDT) 01/22/2025 11:0 4 AM EDT 01/22/2025 11:09 AM EDT Nathen Kearns DO CHEMISTRY ORDERABLES Fin al Result Performing Organization Address [facility] [place] [address], [facility] [phone] * Lactic Acid (01/22/2025 11:04 AM EDT) Lactic Acid, Whole Blood 1.0 0.7 - 2.1 mmol/L 01/22/2025 11:04 AM EDT [facility] [employer] Blood BLOOD SPECIMEN / Unknown 01/22/2025 11:04 AM EDT 01/22/2025 11:09 AM EDT Zia Covington MD CHEMISTRY ORDERABLES Final Resul t Performing Organization Address [facility] [place] [address], [facility] [phone] * Stone Analysis (01/22/2025 4:44 AM EDT) Stone Composition See Note 025 4:44 AM EDT [facility] Comment: (NOTE) Sample composed primarily of organic material not [...] composition determined by FTIR analysis. Performed By: [facility] [address] [place] [address] Pattern Finisher: Jorge Melendrez MD, PhD CLIA Number: [id number] Stone Mass See Note mg 01/22/2025 4:44 AM EDT [facility] Comment: (NOTE) Sample mass < 2 mg. Small sample size prevents accurate weight determination. Stone Description See Note 025 4:44 AM EDT [facility] Comment: (NOTE) Specimen consists of one rondon sample. The total weight is less than 2 mg. Urine (Calculi) 01/22/2025 4 :44 AM EDT 01/22/2025 4:44 AM EDT us Luis Felipe Delacruz MD MICROBIOLOGY - GENERAL ORDERA BLES Final Result [facility] [address] [place] [address] [facility] [address] [place], [place] [address] [phone] * FL VOIDING URETHROCYSTOGRAM S&I (01/17/2025 8:59 AM EDT) Anatomical Region Laterality Modality Pelvis, Abdomen Digital Radiogra phy 01/17/2025 1:24 PM EDT Impressions 01/17/2025 1:26 PM EDT 1. No evidence for vesicoureteric reflux. 2. Small postvoid residual. Narrative 01/17/2025 1:26 PM EDT EXAMINATION: VOIDING CYSTO URETHROGRAM 01/17/2025 7:55 am COMPARISON: None. HISTORY: ORDERING SYSTEM PROVIDED HISTORY: VUR (vesicoureteric reflux) TECHNOLOGIST PROVIDED HISTORY: Is the patient ?->No Reason for Exam: frequent UTI, kidney stones FLUOROSCOPY DOSE AND TYPE: Radiation Exposure Index: DAP 184.41uYvwp5, FINDINGS: 600 mL of Cystografin was instilled [...] the urethra. There is small postvoid residual. Procedure Note Casey Sharma MD - 01/17/2025 EXAMINATION: VOIDING CYSTO URETHROGRAM 01/17/2025 7:55 am COMPARISON: None. HISTORY: ORDERING SYSTEM PROVIDED HISTORY: VUR (vesicoureteric reflux) TECHNOLOGIST PROVIDED HISTORY: Is the patient ?->No Reason for Exam: frequent UTI, kidney stones FLUOROSCOPY DOSE AND TYPE: Radiation Exposure Index: DAP 184.47xAkeu5, FINDINGS: 600 mL of Cystografin was instilled in a retrograde fashion into theurinary bladder under gravity. Filling defect compatible with a Thurston catheter balloon projects overthe lower urinary bladder. No additional filling defects identified in the urinary bladder. Urinary bladder otherwise has an unremarkableappearance. No vesicoureteral reflux identified during filling of the urinary bladderor during voiding. Normal appearance of the urethra. There is small postvoid residual. IMPRESSION: 1. No evidence for vesicoureteric reflux. 2. Small postvoid residual. Adonis Sanchez MD IM FLUOROSCOPY ORDERABLES Final Result * NM KIDNEY W FLOW AND FUNCTION W PHARMACOLOGICAL INTERVENTION (01/05/2025 3:20 PM EDT) Anatomical Region Laterality Modality Abdomen Nuclear Medicine 01/05/2025 3:20 PM EDT Impressions 01/16/2025 8:56 AM EDT Asymmetric activity with 37% on the right, 63% of the left Normal bilateral time to peak and post Lasix washout Narrative 01/16/2025 8:56 AM EDT EXAMINATION: NM KIDNEY W FLOW AND FUNCTION [...] activity in the right renal collecting system. Procedure Note Andrzej Perez MD - 01/16/2025 EXAMINATION: NM KIDNEY W FLOW AND FUNCTION W PHARMACOLOGICAL INTERVENTION HISTORY: Pyelonephritis COMPARISON: No relevant comparison available. TECHNIQUE: After IV administration of 5.0 mCi Tc-99m MAG-3, sequentialrenal flow images were acquired followed by sequential static images.Quantitative analysis was performed of both kidneys. Subsequently, the patient wasgiven 3 mg Lasix IV for determination of [...] imaging demonstrates some mild asymmetric activity in theright renal collecting system. IMPRESSION: Asymmetric activity with 37% on the right, 63% of the left Normal bilateral time to peak and post Lasix washout Adonis Sanchez MD [facility] ORDERABLES Final Result from Last 3 Months Insurance ALLIED BENEFIT SYSTEM Advance Directives * Full Code (Latest Code Status on File) Date Activated Date Inactivated Comments 01/26/2025 5:26 PM 01/29/2025 11:47 AM * Full Code Date Activated Date Inactivated Comments 01/21/2025 11:46 PM 01/22/2025 6:02 PM Care Teams [employer] Supervisor Relationship Specialty Start Date End Date Ignacio Das MD [address] [place] [address] PCP - General Family Medicine 01/05/25
--- OUTSIDE RECORDS SUMMARY | 2025-03-28 06:50 | XMS_ITS | Encounter Summary ---
Author Organization [facility] tem Address [id number] [address] [place] [address] Care Team Providers Care Art History Professor Name Role Phone Ignacio Das MD Primary Care Provider [phone] Encounter Details Date Type Department Care Team (Late st Contact Info) Description 07/26/2020 Orders Only Maternal- Medicine at [facility] [address] [place] [address] External, Scanning Provider Social History Tobacco Use Types Packs/Day Years Used Date Smoking Tobacco: Never Smokeless Tobacco: Never Alcohol Use Standard Drinks/Week Comments No 0 (1 standard drink = 0.6 oz pur e alcohol) Childcare Answer Date Recorded Childcare Unknown 03/30/2019 Employment Answer Date Recorded Employment Unknown 03/30/2019 Comments Yes Sex and Gender Information Value Date Recorded Sex Assigned at Not on file Legal Sex Female 11:49 AM EDT Gender Identity Not on file Sexual Orientation Not on file documented as of this encounter Plan of Treatment Not on file documented as of this encounter Procedures Procedure Name Priority Date/Time Associated Diagnosis Comments POCT URINALYSIS AUTO, W/O MICROSCOPY Routine 07/25/2020 documented in this encounter Results * POCT Urinalysis Auto, W/O Microscopy (07/25/2020) External Poct Urine Glucose Negative MANUALLY TRANSCRIBED RESULTS Comment:see attached External Poct Urine Ketones Negative MANUALLY TRANSCRIBED RESULTS Comment:see attached External Poct Urine Blood Negative MANUALLY TRANSCRIBED RESULTS Comment:see attached External Poct Urine Protein Negative MANUALLY TRANSCRIBED RESULTS Comment:see attached External Poct Urine Nitrite Negative MANUALLY TRANSCRIBED RESULTS Comment:see attached External Poct Urine Leukocyte Esterase Negative MANUALLY TRANSCRIBED RESULTS Comment:see attached us Scanning Provider External POINT OF CARE TEST OR DERABLES Edited Result - Final MANUALLY TRANSCRIBED RESULTS documented in this encounter Visit Diagnoses Not on filedocumented in this encounter Care Teams Art History Professor Relationship Specialty Start Date End Date Ignacio Das MD PCP - General Family Medicine 09/17/20 documented as of this encounter
--- OUTSIDE RECORDS SUMMARY | 2025-03-28 06:50 | XMS_ITS | Encounter Summary ---
Author Organization [facility] Address [address] [place] [address] Care Team Providers Care Private Tutor Name Role Phone Ignacio Das MD Primary Care Provider [phone] Encounter Details Date Type Department Care Team ([facility] Contact Info) Description 04/30/2023 Abstract [facility] [address] [place] [address] Jefferson Gibbs [address] [place], [place] [id number] Social History Tobacco Use Types Packs/Day Years [...] Upcoming Encounters Date Type Department Care Team ([facility] Contact Info) Description 04/05/2025 1:00 PM EDT Office Visit [facility] [address] [place] [address] Jefferson Gibbs [address] [place], [place] [id number] 04/10/2025 9:50 AM EDT Office Visit [facility] [address] [place] [address] Alejandra Leiva MD [address] [place] [address] documented as of this encounter Visit Diagnoses Not on filedocumented in this encounter Care Teams Private Tutor Relationship Specialty Start Date End Date Ignacio Das MD PCP - General Family Medicine 04/13/23 documented as of this encounter
--- OUTSIDE RECORDS SUMMARY | 2025-03-28 06:50 | XMS_ITS | Encounter Summary ---
Author Organization [facility] Address [address] [place] [address] Care Team Providers Care Practice Administrator Name Role Phone Ignacio Das MD Primary Care Provider [phone] Encounter Details Date Type Department Care Team ([facility] Contact Info) Description 05/06/2023 Abstract [facility] OB [address] [place] [address] Jefferson Gibbs [address] [place], [place] [id number] Social History Tobacco Use Types Packs/Day Years [...] Upcoming Encounters Date Type Department Care Team ([facility] Contact Info) Description 04/05/2025 1:00 PM EDT Office Visit [facility] [address] [place] [address] Jefferson Gibbs DO [address] [place], [place] [id number] 04/10/2025 9:50 AM EDT Office Visit [facility] [address] [place] [address] Alejandra Leiva MD [address] [place] [address] documented as of this encounter Visit Diagnoses Not on filedocumented in this encounter Care Teams Practice Administrator Relationship Specialty Start Date End Date Ignacio Das MD PCP - General Family Medicine 04/13/23 documented as of this encounter
--- OUTSIDE RECORDS SUMMARY | 2025-03-28 06:50 | XMS_ITS | Clinical Summary ---
Author Organization [facility] Address [address] [place] [address] Care Team Providers Care Passenger Car Cleaning Supervisor Name Role Phone Ignacio Das MD Unavailable [phone] Social History Tobacco Use Types Packs/Day Years Used Date Smoking Tobacco: Never Assessed Area Deprivation Index Answer Date Corky rded National Score (1-100), lower number is lower ri sk 70 11/01/2022 State Score (1-10), lower number is lower risk N ot on file 11/01/2022 Data from: https://www.neighborhoodatlas.medicine.[facility].edu/. Last address used for calculation [address] [place] [address] 11/01/2022 Comments Unknown Sex and Gender Information Value Date Recorded Sex Assigned at Not on file Legal Sex Female 7:07 PM EST Gender Identity Not on file Sexual Orientation Not on file Plan of Treatment Health Maintenance Due Date Last Done Comments Anxiety Screening 2009 Depression Screening 2009 HIV Screening 2009 Hepatitis C Screening 2009 Cervical Cancer Screening 2012 Covid-19 Vaccine (2023-2 5 season) 2024 Influenza Vaccine (Season Ended) 2025 08/01/2019, 08/08/2018, 08/22/2009 DTaP,Tdap,Td Vaccine (7 - Td or Tdap) 02/06/2031 02/06/2021, 08/09/2018, 04/10/1993, Additional history exists Hepatitis B Vaccine Completed 06/19/2004, 03/27/2004, 12/18/2003 Insurance [facility] MEDICAID Care Teams Passenger Car Cleaning Supervisor Relationship Specialty Start Date End Date Ignacio Das MD Referring Family Medicine 09/01/22
--- OUTSIDE RECORDS SUMMARY | 2025-03-28 06:50 | XMS_ITS | Encounter Summary ---
Author Organization [facility] [employer] [facility] tem Address [id number] [address] [place] [address] Care Team Providers Care Weigh Box Tender Name Role Phone Ignacio Das MD Primary Care Provider [phone] Encounter Details Date Type Department Care Team (Late st Contact Info) Description 07/26/2020 Abstract Maternal- Medicine at [facility] [address] [place] [address] Billy Cazares MD [address] [facility], [address] [place] [address] Social History Tobacco Use Types Packs/Day Years [...] Procedure Name Priority Date/Time Associated Diagnosis Comments CBC AND DIFFERENTIAL Routine 07/09/2020 BASIC METABOLIC PANEL Routine 07/09/2020 documented in this encounter Results * (ABNORMAL) Basic Metabolic Panel (07/09/2020) Glucose 98 mg/dL MANUALLY TRANSCRIBED RESULTS Comment:see attached BUN 10 4 - 21 mg/dL MANUALLY TRANSCRIBED RESULTS Comment:see attached Creatinine 0.7 0.5 - 1.1 mg/dL MANUALLY TRANSCRIBED RESULTS Comment:see attached Potassium 3.4 3.4 - 5.3 mmol/L MANUALLY TRANSCRIBED RESULTS Comment:see attached Sodium 135(A) 137 - 147 mmol/L MANUALLY TRANSCRIBED RESULTS Comment:see attached CALCIUM {PL} 8.3 MANUALL Y TRANSCRIBED RESULTS Comment:see attached Anion gap 9.5 MANUALLY TRANSCRIBED RESULTS Comment:see attached BUN/Creatinine Ratio 14.9 MANUALLY TRANSCRIBED RESULTS Comment:see attached GFR NON {PL} >60 MANUALLY TRANSCRIBED RESULTS Comment:see attached GFR MDRD Af Amer >60 MANUALLY TRANSCRIBED RESULTS Comment:see attached us Scanning Provider External LAB BLOOD ORDERABLES Edited Result - Final MANUALLY TRANSCRIBED RESULTS * (ABNORMAL) CBC and differential (07/09/2020) Hemoglobin 11.4(A) 12.0 - 16.0 g/dL MANUALLY TRANSCRIBED RESULTS Comment:see attached Hematocrit 36 36 - 46 % MANUALLY TRANSCRIBED RESULTS Comment:see attached Platelets 274 150 - 399 10*3/uL MANUALLY TRANSCRIBED RESULTS Comment:see attached Auto WBC 8.9 3.3 - 10.0 10*3/mL MANUALLY TRANSCRIBED RESULTS Comment:see attached Blood us Scanning Provider External LAB BLOOD ORDERABLES Edited Result - Final MANUALLY TRANSCRIBED RESULTS documented in this encounter Visit Diagnoses Not on filedocumented in this encounter Care Teams Weigh Box Tender Relationship Specialty Start Date End Date Ignacio Das MD PCP - General Family Medicine 09/17/20 documented as of this encounter
--- OUTSIDE RECORDS SUMMARY | 2025-03-28 06:50 | XMS_ITS | Patient Health Record ---
Author Organization [facility] Address [address] [place] [address] Care Team Providers Care Inspector Scales Name Role Phone Iván Puckett Primary Care Provider Dulce Maria Matthews [phone] Reason For Referral No Information Plan Of Treatment No Information Insurance Providers Payer Name Payer Address Payer Phone Subscriber Number Group Number Insured Name Patient Relationship to Insured Coverage Start Date Coverage End Date [employer] [place] [employer] [address] [address] [place] [address] [phone] [id number] CORI BARRIGA Self - patient is the insured 3 [employer] [facility] [place] [address] [place] [address] [id number] CORI BARRIGA Self - patient is the insured 3
--- NOTE | 2025-03-28 07:10 | XR_ITS ---
The [address] [address] Patient Name: CORI BARRIGA MRN: [id number] date: 1990 Sex: F Assigned Patient Location: [facility] Current Patient Location: [facility] Accession/Order Number: [id number] Exam Date: 03/28/2025 08:29 Report Date: 03/28/2025 08:35 At the request of: DOMINGO SNYDER MD Procedure: XR lumbar spine min 4V CLINICAL HISTORY: M54.16: Pain radiating down the left leg SACRUM AND COCCYX -3 views COMPARISON: CT 01/21/2025 Lateral as well as AP views in neutral and downward projection were obtained. No fracture or displacement is identified. The SI joints and sacral foramen appear intact. There is mild sclerosis at the SI joints. No soft tissue abnormalities are seen. XR/XR lumbar spine min 4V IMPRESSION: NO ACUTE BONY FINDINGS. LUMBAR SPINE - 4 views COMPARISON: CT 01/21/2025 AP, lateral and both oblique views were obtained. No fracture or displacement is identified. There is no disproportionate disc space narrowing. There is minimal endplate spurring and minor facet sclerosis. No pars defects are seen. Bilateral nephrolithiasis is noted. No other paraspinal soft tissue abnormalities are visualized. IMPRESSION: NO ACUTE BONY FINDINGS. INCIDENTAL NEPHROLITHIASIS. Impression dictated by: Imani Celis M.D. 03/28/2025 8:35 AM Dictation Location: [place] [address] Electronically authenticated by: [id number] Y Date: 03/28/2025 08:35
== END 2025-03-28 06:46 | disposition home or self-care (01) ==
LOC: RAD 06:47
PROVIDERS: PCP Family Medicine; Visit Provider Family Medicine
DX: M54.16 Radiculopathy, lumbar region (principal); N20.0 Calculus of kidney
CPT/HCPCS: 72110; 72220

== ENCOUNTER 2025-04-04 06:53 | Outpatient (RCR) | payer OTHER, SELFPAY | END 2025-04-26 09:37 | disposition home or self-care (01) | LOC: PT 06:53 | PROVIDERS: PCP Family Medicine; Visit Provider Family Medicine | DX: M54.50 Low back pain, unspecified (principal); M25.551 Pain in right hip | CPT/HCPCS: 97035; 97110; 97140; 97161 ==

== ENCOUNTER 2025-04-05 20:46 | Outpatient (REF) | payer OTHER, SELFPAY ==
--- OUTSIDE RECORDS SUMMARY | 2024-05-09 04:30 | XMS_ITS ---
Author Organization [facility] Address [address] [place] [address] Care Team Providers Care Community Health Agent Name Role Phone Iván Puckett Primary Care Provider [phone] Dulce Maria Grey Unavailable [phone] REASON FOR VISIT PROPHY Encounters Encounter Location Date Provider Diagnosis [address] [place] [address] 05/09/2024 Dulce Maria Matthews Plan Of Treatment No Information Progress Notes * CORI BARRIGA LDOB: [birth year] (34 yo F)Acc No.[id number]:05/09/2024 Patient: Connor QUIROZ CORI Hyman Provider: Ladonna Baugh :1990 A ge:33 Y S ex:Female Date:05/09/2024 [facility] [id number] Pcp:Iván Puckett Subjective: * Chief Complaints: * 1 . PROPHY. * Medical History: Objective: * Vitals: Assessment: Plan: * Treatment: * Images: * Electronic signature of Karissa Matthews on 04/05/2025 at 12:55 PM EDT Sign off status: Pending * Provider: Ladonna Baugh Date: 05/09/2024 Generated for Printi ng/Faxing/eTransmitting on: 0 04/05/2025 12:55 PM EDT
--- OUTSIDE RECORDS SUMMARY | 2025-03-16 11:02 | XMS_ITS ---
Author Organization [facility] in [place] Address [address] [place] [address] Care Team Providers Care Pit Boss Name Role Phone Thiago Kendrick Primary Care Provider [phone] Adonis Daly [phone] REASON FOR VISIT 03/16 urine culture Medications Medication SIG (Take, Route, Frequency, Duration) Notes Start Date End Date Status Nitrofurantoin Monohyd Macro 100 MG 1 capsule with food Orally every 12 hrs for 7 days 03/20/2025 Active Encounters Encounter Location Date Provider Diagnosis Urology [facility] [address] [place] [address] 03/16/2025 Adonis Sanchez Urinary tract infection, site [...] Provider Name:Kendrick Das, 10:00:00 AM, [address] [place], [address], Provider Name:Adonis Sanchez , 09/21/2025 01:50:00 PM, [address] [facility], [place], [address], Progress Notes * Diana BEAVER LDOB: 1 (34 yo F)Acc No.[id number]:03/16/2025 Patient: Diana RATLIFF :1990 A ge:34 Y S ex:Female Address:[address] [place] [address], [address] * Refills Start Nitrofurantoin Monohyd Macro Capsule, [...] Date: Generated for Meenakshi krishnan/Neisha/Lindasmitting on: 0 04/05/2025 08:50 PM EDT
--- OUTSIDE RECORDS SUMMARY | 2025-03-23 10:00 | XMS_ITS ---
Author Organization [facility] [place] Address [address] [place] [address] Care Team Providers Care Doll Maker Name Role Phone Kendrick Snyder Primary Care Provider Allergies No Known Allergies Results Component Value Reference Range Notes XR sacrum coccyx min 2V Reviewed date:03/28/2025 04:31:58 PM Interpretation: Performing Lab: Notes/Report: Source Facility: [place] [address] XRay Report Signed Patient: CORI BEAVER MR#: [id number] : 1990 Acct:[id number] Age/Sex: 34 / F ADM Date: 03/28/25 Loc: RAD Attending Dr: Domingo Snyder M.D. Ordering Physician: Domingo Snyder M.D. Date of Service: 03/28/25 Procedure(s): XR sacrum coccyx min 2V Accession Number(s): [id number] cc: Domingo Snyder M.D. [address] [address] Patient Name: CORI BEAVER MRN: [id number] date: 1990 Sex: F Assigned Patient Location: RAD Current Patient Location: RAD Accession/Order Number: [id number] Exam Date: 03/28/2025 08:29 Report Date: 03/28/2025 08:35 At the request of: DOMINGO SNYDER MD Procedure: XR lumbar spine min 4V CLINICAL HISTORY: M54.16: Pain radiating down the left leg SACRUM AND COCCYX -3 views COMPARISON: CT 01/21/2025 Lateral as well as AP views in neutral and downward projection were obtained. No fracture or displacement is identified. The SI joints and sacral foramen appear intact. There is mild sclerosis at the SI joints. No soft tissue abnormalities are seen. XR/XR sacrum coccyx min 2V IMPRESSION: NO ACUTE BONY FINDINGS. LUMBAR SPINE - 4 views COMPARISON: CT 01/21/2025 AP, lateral and both oblique views were obtained. No fracture or displacement is identified. There is no disproportionate disc space narrowing. There is minimal endplate spurring and minor facet sclerosis. No pars defects are seen. Bilateral nephrolithiasis is noted. No other paraspinal soft tissue abnormalities are visualized. IMPRESSION: NO ACUTE BONY FINDINGS. INCIDENTAL NEPHROLITHIASIS. Impression dictated by: Imani Celis M.D. 03/28/2025 8:35 AM Dictation Location: [place] [address] Electronically authenticated by: [id number] Y Date: 03/28/2025 08:35 Dictated By: Imani Celis M.D. Signed By: 03/28/2537 DD/ TD/TT: Dairy Store Manager: [place] [address] XRay Report Signed Patient: RAMIN BEAVER MR#: [id number] : 1990 Acct:[id number] Age/Sex: 34 / F ADM Date: 03/28/25 Loc: RAD Attending Dr: Domingo Snyder M.D. Ordering Physician: Domingo Snyder M.D. Date of Service: 03/28/25 Procedure(s): XR sac rum coccyx min 2V Accession Number(s): [id number] cc: Domingo Snyder M.D. [address] [address] Patient Name: CORI BEAVER MRN: [id number] date: 1990 Sex: F Assigned Patient Location: [facility] Current Patient Location: [facility] Accession/Order Numb er: [id number] Exam Date: 03/28/2025 08:29 Report Date: 03/28/2025 08:35 At the request of: DOMINGO SNYDER MD Procedure: XR lumbar spine min 4V CLINICAL HISTORY: M5 4.16: Pain radiating down the left leg SACRUM AND COCCYX -3 views COMPARISON: CT 01/21/2025 Lateral as well as A P views in neutral and downward projection were obtained. No fracture or displ acement is identified. The SI joints and sacral foramen appear intact. There is mild sclerosis at the SI joints. No soft tissue abnormalities are seen. X R/XR sacrum coccyx min 2V IMPRESSION: NO ACUTE BONY FINDINGS. LUMBAR SPINE - 4 views COMPARISON: CT 01/21/2025 AP, lateral and both oblique views were obtained. No fracture or displacement is identified. There is no disproportionate disc space narrowing. There is minimal endplate spu rring and minor facet sclerosis. No pars defects are seen. Bilateral neph rolithiasis is noted. No other paraspinal soft tissue abnormalities are visualized. IMPRESSION: NO ACUTE BONY FINDINGS. INCIDENTAL NEPHROLITHIASIS. Impression dictated by: Imani Celis M.D. 03/28/2025 8:35 AM Dictation Location: [place] [address] Electronically authe nticated by: [id number] Y Date: 03/28/2025 08:35 Dictated By: Imani Holman M.D. Signed By: 03/28/25 0837 DD/ TD/TT: Dairy Store Manager: REASON FOR VISIT severe low back pain- [...] Lumbar radiculopathy (M54.16) Active confirmed Vital Signs Blood pressure systolic 118 mm Hg 03/23/20 25 Blood pressure diastolic 86 mm Hg 025 Height 66 in 03/23/2025 Weight 192.4 lbs 03/23/2025 BMI 31.05 kg/m2 03/23/2025 Encounters Encounter Location Date Provider Diagnosis [facility] [address] [place] [address] 03/23/2025 Kendrick Snyder Lumbar radiculopathy M54.16 Assessments Encounter Date Diagnosis [...] 03/23/2025 XR LSPINE MIN 4 VIEWS 03/23/2025 Next Appt Details Provider Name:Kendrick Snyder, 10:00:00 AM, [address] [place], [address], Provider Name:Adonis Sanchez , 09/21/2025 01:50:00 PM, [address] [place], [address], Medications Administered Medication Instructions Date of Administration Dosage Notes Ketorolac Tromethamine 03/23/2025 60 mg Triamcinolone 40 mg/ml 03/23/2025 120 mg Progress Notes * Cori BEAVER LDOB: 1 (34 yo F)Acc No.[id number]:03/23/2025 Progress Note Patient: Cori RATLIFF Provider: Walter Snyder ([facility])MD :1990 A ge:34 Y S ex:Female Date:03/23/2025 Address:[address] [place], [place] [address] Check In:01:43 PM ESTCheck O ut:02:44 PM EST Subjective: * Chief Complaints: * S evere low back pain- has been told in the past her sacroiliac joint in deterioratedAlso has pain in the neck area as well * HPI: G eneral: Severe low back [...] F ainting d enies. H eadache?denies. * Active Problem List J02.0 Streptococcal pharyn gitis Modified On:03/19/2023 Status:confirmed S93.412A Sprain of calcaneofi bular ligament of left ankle, initial encounter Modified On:03/19/2023U Status:confirmed N20.0 Kidney stones Modified On:03/19/2023U Status:confirmed Z00.00 Well adult Modified On:03/19/2023U Status:confirmed N12 Pyelonephritis Modified On:03/19/2023 Status:confirmed E66.3 Over weight Modified On:03/19/2023 Status:confirmed G56.22 Entrapment of left u lnar [...] kidney Modified On:04/10/2023 Status:confirmed N20.0 Nephrolithiasis Modified On:07/02/2024W/U Status:confirmed G56.22 Ulnar nerve compress ion, left Modified On:04/19/2024 Status:confirmed G56.21 Ulnar nerve compress ion, right Modified On:04/19/2024 Status:confirmed M62.838 Muscle spasm Modified On:07/28/2024 Status:confirmed E83.42 Hypomagnesemia Modified On:09/07/2024U Status:confirmed K21.9 GERD (gastroesophage al reflux disease) Modified On:09/07/2024U Status:confirmed N39.0 Acute UTI Modified On:10/06/2024U Status:confirmed N13.70 VUR (vesicoureteric reflux) Modified On:11/24/2024 Status:confirmed M54.16 Lumbar radiculopathy Modified On:03/23/2025 Status:confirmed * Medical History: * Surgical History: C holecystectomy Right Renal Calculus 05/24/2020Cystoscopy, Left retrograde pyelogram, ureteral stent- Dr. Souza's Hysterectomy, Bilat Salpingectomy- Bernie 05/06/23urethral dilation Right laser lithotripsy - Dr Villa 11/2021ureteral stent placement on Left side 01/22/25Cystoscopy, Holmium Laser Lithotripsy, Lt stent replacement, Rt stent placement- Dr Desai 01/27/25 * Hospitalization/Major Diagno stic Procedure: M ultiple for kidney stones and stents * Family [...] is a n onsmoker * Medications: T akingMeloxicam 15 MG Tablet 1 tablet Orally Once a day Methenamine Hippurate 1 GM Tablet 1 tablet Orally Twice a day Nitrofurantoin Monohyd Macro 100 MG Capsule 1 capsule with food Orally every 12 hrs Ondansetron 4 MG Tablet Disintegrating 1 tablet on the tongue and allow to dissolve Orally qid , Notes to Pharmacist: PRNPromethazine HCl 25 MG Tablet 1 tablet as needed Orally q6h , Notes to Pharmacist: PRNtiZANidine HCl 4 MG Tablet 2 tabs Orally qhs Taking Meloxicam 15 MG Tablet 1 tablet Orally Once a day Taking Methenamine Hippurate 1 GM Tablet 1 tablet Orally Twice a day Taking Nitrofurantoin Monohyd Macro 100 MG Capsule 1 capsule with food Orally every 12 hrs Taking Ondansetron 4 MG Tablet Disintegrating 1 tablet on the tongue and allow to dissolve Orally qid , Notes to Pharmacist: PRNTaking Promethazine HCl 25 MG Tablet 1 tablet as needed Orally q6h , Notes to Pharmacist: PRNTaking tiZANidine HCl 4 MG Tablet 2 tabs Orally qhs DiscontinuedFlomax Sulfamethoxazole-Trimethoprim 800- 160 MG Tablet 1 tablet Orally bid Medication List reviewed and reconciled with the patientDiscontinued Flomax Discontinued Sulfamethoxazole-Trimethoprim 800-160 MG Tablet 1 tablet Orally bid Medication List reviewed and reconciled with the patient * Allergies: N .K.D.A.no[Allergies Verified] Objective: * Vitals: W t:192.4lbs, Ht: 66 [...] 9 6372 THERAP.INJ. OF MED. INTRAMUSCULAR OR [id number] TMC ACET,PER 10MG., Units: 12.00 J1885 TORADOL, PER 15 MG, Units: 4.00 , Modifiers: JZ * Preventive Medicine: Screenings/Counseling: B [place] ACTION PLAN Above Normal BMI Follow-up D ietary management education, guidance, and counseling * * Sign off status: Completed Visit Status: C HK (Check Out) true * Provider: Walter Snyder ([facility])MD Date: 03/23/2025 Generated for Printi ng/Faxing/eTransmitting on: 04/05/2025 08:50 PM EDT History and Physical Notes * HPI [...]
--- OUTSIDE RECORDS SUMMARY | 2025-03-28 12:31 | XMS_ITS ---
Author Organization [facility] [place] Address [address] [place] [address] Care Team Providers Care Hide Inspector Name Role Phone Thiago Kendrick Primary Care Provider Reason For Referral Diagnosis 1 [facility].50) Referral Organization [facility] Referring Provider First Name Kendrick Referring Provider Last Name Thiago Referring Provider Speciality Family Med icine Referred Provider [facility], Physical Therap y Referred Provider Specialty Physical The rapist Referral Priority Routine REASON FOR VISIT xray Encounters Encounter Location Date Provider Diagnosis [facility] [address] [place] [address] 03/28/2025 Kendrick Das Low back pain at multiple sites M54.50 Assessments Encounter Date Diagnosis (ICD Code) Assessment Notes Treatment Notes Treatment Clinical Notes Section Notes 03/28/2025 Low back pain at multiple sites (ICD-10 - M54.50) Plan Of Treatment Referrals Referral Date Details 03/29/2025 03/29/2025, Physical Therapy [facility] Next Appt Details Provider Name:Kendrick Connor Das, 10:00:00 AM, [address] [place], [address], Provider Name:Adonis Sanchez , 09/21/2025 01:50:00 PM, [address] [place] [address], [phone], Progress Notes * Diana BEAVER LDOB: 1 (34 yo F)Acc No.[id number]:03/28/2025 Patient: Diana RATLIFF :1990 A ge:34 Y S ex:Female Address:[address] [place] [address] Subjective: * Chief Complaints: * X ray * Medical History: * Surgical History: * Hospitalization/Major Diagno stic Procedure: * Medications: Objective: * Vitals: * Physical Examination: Assessment: * Assessment: 1. L ow back pain at multiple sites - M54.50 (Primary) Plan: * Treatment: * Procedure Codes: * true * Date: Generated for Meenakshi krishnan/Neisha/Vamshiitting on: 0 04/05/2025 12:55 PM EDT Consultation Request Notes Referral Date Referring Provider Referred Provider Not es 03/29/2025 Kendrick Das [facility], Physical Therapy
--- OUTSIDE RECORDS SUMMARY | 2025-04-05 13:00 | XMS_ITS | Encounter Summary ---
Author Organization [facility] Address [address] [place] [address] Care Team Providers Care Order Packer Or Packager Name Role Phone Ignacio Das MD Primary Care Provider [phone] Reason for Visit * Reason Comments Gynecologic Exam Encounter Details Date Type Department Care Team ([facility] Contact Info) Description 04/05/2025 1:00 PM EDT Office Visit [facility] [address] [place] [address] Jefferson Gibbs DO [address] [facility] [place] [address] Well woman exam with routine gynecological exam; H/O: hysterectomy; Night sweats Social History Tobacco Use Types Packs/Day Years [...] on file documented as of this encounter Last Filed Vital Signs Vital Sign Reading Time Taken Comments Blood Pressure 124/72 04/05/2025 1:06 PM EDT Pulse - - Temperature - - Respiratory Rate - - Oxygen Saturation - - Inhaled Oxygen Concentration - - Weight 83.9 kg (185 lb) 04/05/2025 1:06 PM EDT Height - - Body Mass Index 29.86 06/16/2023 2:48 PM EDT documented in this encounter Progress Notes * Imani Sutton LPN - 04/05/2025 1:00 PM EDT Reason for Appointment: Patient ID: Diana Beaver is a 34 y.o. female who presents for Gynecologic Exam Patient presents today for Annual Exam. MEDICATIONS Current Outpatient Medications Medication Instructions Effer-K 25 MEQ effervescent tablet DISSOLVE 1 TABLET IN LIQUID AND TAKE BY MOUTH TWICE A DAY ibuprofen 800 mg, Oral, Every 8 hours nabumetone (RELAFEN) 750 mg, Oral, 2 times daily PRN ALLERGIES No Known Allergies PROBLEMS Active Ambulatory Problems Diagnosis Date Noted Abnormal weight gain 04/10/2023 Body mass index (BMI) of 40.1 to 44.9 in adult ([facility]) 04/10/2023 Encounter for follow-up examination after completed treatment for conditions other than malignant neoplasm 04/10/2023 IUD contraception 04/10/2023 Menorrhagia with regular cycle 04/10/2023 Anti-M isoimmunization affecting , 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[facility]) 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 Anxiety 07/26/2020 Bipolar disorder ([facility]) 06/01/2023 Dysuria 06/01/2023 Entrapment of left ulnar nerve 06/01/2023 Feeling of incomplete bladder emptying 06/01/2023 Flank pain 06/01/2023 Frequency of urination 06/01/2023 History of chlamydia 07/26/2020 History of gestational diabetes 07/26/2020 History of kidney stones 06/01/2023 Hypercalciuria 06/01/2023 Hyperoxaluria 06/01/2023 Intrauterine ([facility]) 02/18/2018 Lesion of ulnar nerve 06/01/2023 Mass of scalp 06/01/2023 Muscle pain 06/01/2023 Microhematuria 06/01/2023 Astigmatism 05/05/2017 Nocturia 06/01/2023 Overweight 06/01/2023 Pyelonephritis 06/01/2023 Kidney stone 06/01/2023 Retroflexion of uterus 06/01/2023 Sprain of calcaneofibular ligament 06/01/2023 Streptococcal pharyngitis 06/01/2023 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/01/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 06/01/2023 Superficial thrombophlebitis 06/01/2023 Term delivery with labor in third trimester ([facility]) 08/06/2018 Urge incontinence 06/01/2023 Urinary urgency 06/01/2023 UTI (urinary tract infection) 06/01/2023 Mass of left breast 01/08/2024 Resolved Ambulatory Problems Diagnosis Date Noted Encounter for gynecological examination (general) (routine) without abnormal findings 04/10/2023 Past Medical History: Diagnosis Date Abnormal Pap smear of cervix Anxiety and depression Bipolar 1 disorder (HCC) Bladder prolapse, congenital ([facility]HS-HCC) Dysplasia of cervix S/P VH (vaginal hysterectomy) 05/06/2023 Yeast infection HISTORY PAST MEDICAL HISTORY SOCIAL HISTORY Past Medical History: Diagnosis Date Abnormal Pap smear of cervix Anxiety and depression Bipolar 1 disorder (HCC) Bladder prolapse, congenital ([facility]HS-HCC) Dysplasia of cervix History of kidney stones S/P VH (vaginal hysterectomy) 05/06/2023 Yeast infection Social History Tobacco Use Smoking status: Never Smokeless tobacco: Not on file Substance Use Topics Alcohol use: Never Drug use: Never FAMILY HISTORY Family History Problem Relation Name Age of Onset Hypertension Mother Diabetes Maternal Grandmother Heart disease Paternal Grandfather Melanoma Neg Hx SURGICAL HISTORY Past Surgical History: Procedure Laterality Date CERVICAL BIOPSY W/ LOOP ELECTRODE EXCISION CHOLECYSTECTOMY ENDOMETRIAL ABLATION HYSTERECTOMY 05/06/2023 SALPINGECTOMY REVIEW OF SYSTEMS Review of Systems: Review of Systems Constitutional: Negative. HENT: Negative. Eyes: Negative. Respiratory: Negative. Cardiovascular: Negative. Gastrointestinal: Negative. Genitourinary: Negative. Musculoskeletal: Negative. Skin: Negative. Neurological: Negative. All other systems reviewed and are negative. Hematological: Negative. Endocrine: Negative. Allergic/Immunologic: Negative. OBJECTIVE Objective: Physical Exam Constitutional: Appearance: Normal appearance. She is well-developed. Genitourinary: Vulva normal. Vaginal cuff intact. Cervix is absent. Uterus is absent. Cardiovascular: Rate and Rhythm: Normal rate and regular rhythm. Abdominal: General: Bowel sounds are normal. There is no distension. Palpations: Abdomen is soft. Tenderness: There is no abdominal tenderness. There is no guarding or rebound. Musculoskeletal: General: No swelling. Normal range of motion. Right lower leg: No edema. Left lower leg: No edema. Neurological: Mental Status: She is alert and oriented to person, place, and time. Skin: General: Skin is warm and dry. Psychiatric: Mood and Affect: Mood normal. Behavior: Behavior normal. Vitals and nursing note reviewed. Exam conducted with a strap folding machine operator present. Vitals: Estimated body mass index is 29.86 kg/m?? as calculated from the following: Height as of 8/29/23: 5' 6 . Weight as of this encounter: 185 lb. BP: 124/72 Patient's last menstrual period was 04/05/2023 (exact date). ASSESSMENT & PLAN ICD-10-CM 1. Well woman exam with routine gynecological exam Z01.419 Pap Smear HPV DNA probe, amplified 2. H/O: hysterectomy Z90.710 Orders Placed This Encounter Procedures HPV DNA probe, amplified Annual Wellness Exam (Post Hysterectomy): Patient presents today for routine annual exam. Patient states she has complaints of night sweats, rx for climara faxed to pharmacy. Patients vitals were reviewed and within normal limits. Growth and development is noted to be appropriate for age. Menstrual history is noted to be obsolete due to patients history of hysterectomy. No mental health concerns was expressed. Pap Smear: Speculum was inserted into the vagina and pap was obtained without difficulty. HPV testing was performed per guidelines. Patient was advised that pap results could take anywhere from 7 to 10 days to receive and our office will reach out to the patient with those once we have them. Patient can also view results via [employer]. I reinforced importance of condom use for STI prevention. Patient declined cultures to be performed with today's visit. Breast Exam: Upon examination, clinical breast exam was noted to be normal. Patient was counseled on breast self-awareness, including the importance of knowing what is normal for her own breasts and promptly reporting any changes such as new lumps, skin dimpling, nipple discharge, or pain. Screening mammogram recommended annually beginning at age 40 or earlier if risk factors are present. Discussed signs and symptoms of breast cancer and when to seek medical attention. Answered all patient questions. Follow Up: Patient is to return to our office in one year for annual exam unless needed otherwise. Documented by Imani Sutton LPN on behalf of: Jefferson Gibbs DO documented in this encounter Plan of Treatment Upcoming Encounters Date Type Department Care Team (Late st Contact Info) Description 04/10/2025 9:50 AM EDT Office Visit [facility] [address] [place] [address] Alejandra Leiva MD [address] [place] [address] 04/09/2026 9:00 AM EDT Office Visit [facility] [address] [facility] [address] Jefferson Gibbs, [address] [facility] [place] [address] Scheduled Orders Name Type Priority Associated Diagnoses Orde r Schedule Pap Smear Pathology and Cytology Routine Well woman exam with routine gynecological exam Ordered: 04/05/2025 HPV DNA probe, amplified Microbiology Routine Well woman exam with routine gynecological exam Ordered: 04/05/2025 documented as of this encounter Visit Diagnoses Diagnosis Well woman exam with routine gynecological exam Routine gynecological examination H/O: hysterectomy Acquired absence of both cervix and uterus Night sweats Generalized hyperhidrosis documented in this encounter Care Teams Order Packer Or Packager Relationship Specialty Start Date End Date Ignacio Das MD [address] [facility][[address]] [place] [phone] PCP - General Family Medicine 04/13/23 documented as of this encounter
--- OUTSIDE RECORDS SUMMARY | 2025-04-05 20:50 | XMS_ITS | Patient Health Record ---
Author Organization The [facility] in [place] Address [address] [place] [address] Care Team Providers Care Flosser Name Role Phone Kendrick Das Primary Care Provider [phone] Breonna Sanchez Unavailable [phone] Allergies No Known Allergies Results Component Value Reference Range Notes AMMONIA Reviewed date:09/08/2024 02:54:07 PM Interpretation: Performing Lab: Notes/Report: [facility] , Ammonia <10 11-32 umol/L Performing Lab: see note ML - [facility] LB CBC AUTO DIFF Reviewed date:09/08/2024 02:54:07 PM Interpretation: Performing Lab: Notes/Report: [facility] , White Blood Count 6.0 4.0-11.0 10 [...] Performing Lab: see note ML - [facility] LB CRP Reviewed date:09/08/2024 02:54:07 PM Interpretation: Performing Lab: Notes/Report: [facility] , C Reactive Protein <0.50 <=0.50 mg/dL Performing Lab: see note ML - [facility] LB MAGNESIUM Reviewed date:09/08/2024 02:54:07 PM Interpretation: Performing Lab: Notes/Report: [facility] , Magnesium 1.6 1.8-2.4 mg/dL Performing Lab: see note ML - [facility] LB UA DIP NONAUTO WO MICRO (810 02) - IN OFFICE Reviewed date:12/03/2024 02:14:40 PM Interpretation: Performing Lab: Notes/Report: COLOR straw CLARITY clear GLUCOSE neg BILIRUBIN neg KETONE neg SPECIFIC GRAVITY 1.015 BLOOD 50 PH 7 PROTEIN trace UROBILINOGEN neg NITRITE neg LEUKOCYTE ESTERASE trace UA DIP NONAUTO WO MICRO (810 02) - IN OFFICE Reviewed date:03/16/2025 03:01:21 PM Interpretation: Performing Lab: Notes/Report: COLOR yellow CLARITY cloudy GLUCOSE neg BLOOD 1+ PROTEIN 1+ NITRITE positive LEUKOCYTE ESTERASE 3+ XR sacrum coccyx min 2V Reviewed date:03/28/2025 04:31:58 PM Interpretation: Performing Lab: Notes/Report: Source Facility: [facility] [place] [address] [place] [address] XRay Report Signed Patient: DIANA BARRIGA MR#: [id number] : 1990 Acct:[id number] Age/Sex: 34 / F ADM Date: 03/28/25 Loc: [facility] Attending Dr: Domingo Das M.D. Ordering Physician: Domingo Das M.D. Date of Service: 03/28/25 Procedure(s): XR sacrum coccyx min 2V Accession Number(s): [id number] cc: Domingo Das M.D. [place] [id number] Patient Name: DIANA BARRIGA MRN: [id number] date: 1990 Sex: F Assigned Patient Location: [facility] Current Patient Location: [facility] Accession/Order Number: [id number] Exam Date: 03/28/2025 08:29 Report Date: 03/28/2025 08:35 At the request of: DOMINGO DAS MD Procedure: XR lumbar spine min 4V [...] Celis M.D. 03/28/2025 8:35 AM Dictation Location: [place] [address] Electronically authenticated by: [id number] Y Date: 03/28/2025 08:35 Dictated By: Imani Celis M.D. Signed By: 03/28/25 0837 DD/ 0835 TD/TT: Paper Control Clerk: The [address] [address] XRay Report Signed Patient: RAMIN BARRIGA MR#: [id number] : 1990 Acct:[id number] Age/Sex: 34 / F ADM Date: 03/28/25 Loc: [facility] Attending Dr: Radha Das M.D. Ordering Physician: Domingo Das M.D. Date of Service: 03/28/25 Procedure(s): XR sac rum coccyx min 2V Accession Number(s): [id number] cc: Domingo Das M.D. [address] [address] Patient Name: DIANA BARRIGA MRN: [id number] date: 1990 Sex: F Assigned Patient Location: [facility] Current Patient Location: [facility] Accession/Order Numb er: [id number] Exam Date: 03/28/2025 08:29 Report Date: 03/28/2025 08:35 At the request of: DOMINGO DAS MD Procedure: XR lumbar spine min 4V [...] Celis M.D. 03/28/2025 8:35 AM Dictation Location: [place] [address] Electronically authenticated by: [id number] Y Date: 03/28/2025 08:35 Dictated By: Imani Celis M.D. Signed By: 03/28/2537 DD/ TD/TT: Paper Control Clerk: CBC AUTO DIFF Reviewed date:04/10/2024 03:22:53 PM Interpretation: Performing Lab: Notes/Report: [facility] , White Blood Count 6.5 4.0-11.0 10 [...] Performing Lab: see note ML - [facility] LB DRUG SCREEN RAPID (URINE) Reviewed date:04/10/2024 03:22:53 PM Interpretation: Performing Lab: Notes/Report: [facility] , Cannabinoid Screen Urine POSITIVE NEGATIVE Phencyclidine [...] ng/mL Performing Lab: see note ML - [facility] LB PREG QUANT HCG Reviewed date:04/10/2024 03:22:53 PM Interpretation: Performing Lab: Notes/Report: [facility] , HCG Quantitative <1 5-50 0.2-1 WEEK 50-500 1-2 WEEKS 100-5,000 2-3 WEEKS 500-10,000 3-4 WEEKS 1,000-50,000 4-5 WEEKS 10,000-100,000 5-6 WEEKS 15,000-200,000 6-8 WEEKS 10,000-100,000 2-3 MONTHS Performing Lab: see note ML - [facility] LB PROF 14(COMP METB) Reviewed date:04/10/2024 03:22:53 PM Interpretation: Performing Lab: Notes/Report: [facility] , Sodium 140 136-145 mmol/L Potassium 3.5 [...] Performing Lab: see note ML - [facility] LB UA (CLEAN or CATCH) ARMED GUARD or M ICRO IF IND. Reviewed date:04/10/2024 03:22:53 PM Interpretation: Performing Lab: Notes/Report: [facility] , Color Urine LT. YELLOW YELLOW Clarity Urine CLEAR CLEAR Specific [place] Urine 1.010 1.005-1.025 pH Urine 7.0 5.0-9.0 Protein Urine NEGATIVE NEG/TRACE mg/dL Glucose Urine UA NEGATIVE NEGATIVE mg/dL Bilirubin Urine NEGATIVE NEGATIVE Ketones Urine NEGATIVE NEGATIVE mg/dL Blood Urine TRACE-I NEGATIVE Nitrite Urine NEGATIVE NEGATIVE Urobilinogen Urine 0.2 0.2-1.0 EU/dL Leukocyte Esterase Urine NEGATIVE NEGATIVE Urine Microscopic Indicated YES Performing Lab: see note ML - [facility] LB URINE MICROSCOPIC ONLY Reviewed date:04/10/2024 03:22:53 PM Interpretation: Performing Lab: Notes/Report: [facility] , WBC Urine NONE SEEN NONE SEEN #/HPF RBC Urine 0-2 0-2 #/HPF Bacteria Urine NONE SEEN NONE SEEN #/HPF Mucus Urine SMALL NONE SEEN Squamous Epithelial Cell Urine FEW NONE/RARE #/LPF Crystals Seen? Seen None Seen #/HPF Amorphous Sediment Urine FEW Urine Culture Indicated NO Performing Lab: see note ML - [facility] LB Salicylate Reviewed date:04/10/2024 03:22:53 PM Interpretation: Performing Lab: Notes/Report: [facility] , Salicylate <2.8 <=19.9 mg/dL Performing Lab: see note ML - [facility] LB Ethanol Reviewed date:04/10/2024 03:22:53 PM Interpretation: Performing Lab: Notes/Report: [facility] , Ethanol <3 NOTE: 80 mg/dl is the legal limit for a blood alcohol level Performing Lab: see note ML - [facility] LB CBC AUTO DIFF Reviewed date:04/21/2024 12:43:25 PM Interpretation: Performing Lab: Notes/Report: [facility] , White Blood Count 9.5 4.0-11.0 10 [...] Performing Lab: see note ML - [facility] LB LACTATE or LACTIC ACID Reviewed date:04/21/2024 12:43:25 PM Interpretation: Performing Lab: Notes/Report: [facility] , Lactate/Lactic Acid 1.3 0.4-2.0 mmol/L Performing Lab: see note ML - [facility] LB PROF CHEM 8 (BAS METB) Reviewed date:04/21/2024 12:43:25 PM Interpretation: Performing Lab: Notes/Report: [facility] , Sodium 137 136-145 mmol/L Potassium 3.7 3.5-5.1 mmol/L Chloride 102 98-107 mmol/L Carbon Dioxide 27.7 21.0-32.0 mmol/L Anion Gap 11.0 Glucose 115 74-106 mg/dL Blood Urea Nitrogen 8.0 7.0-18.0 mg/dL Creatinine 0.82 0.55-1.02 mg/dL Estimated GFR ( Kyung >60 >=60 Estimated GFR (Non- Shefali >60 >=60 BUN Creatinine Ratio 9.8 Calcium 10.1 8.5-10.1 mg/dL Performing Lab: see note ML - [facility] LB UA (CLEAN or CATCH) ARMED GUARD or M ICRO IF IND. Reviewed date:04/21/2024 12:43:25 PM Interpretation: Performing Lab: Notes/Report: [facility] , Color Urine LT. YELLOW YELLOW Clarity Urine CLEAR CLEAR Specific [place] Urine 1.015 1.005-1.025 pH Urine 6.5 5.0-9.0 Protein Urine NEGATIVE NEG/TRACE mg/dL Glucose Urine UA NEGATIVE NEGATIVE mg/dL Bilirubin Urine NEGATIVE NEGATIVE Ketones Urine NEGATIVE NEGATIVE mg/dL Blood Urine SMALL NEGATIVE Nitrite Urine NEGATIVE NEGATIVE Urobilinogen Urine 0.2 0.2-1.0 EU/dL Leukocyte Esterase Urine TRACE NEGATIVE Urine Microscopic Indicated YES Performing Lab: see note ML - [facility] LB URINE MICROSCOPIC ONLY Reviewed date:04/21/2024 12:43:25 PM Interpretation: Performing Lab: Notes/Report: [facility] , WBC Urine 2-5 NONE SEEN #/HPF [...] Performing Lab: see note ML - [facility] LB SARS-CoV-2 Ag* Reviewed date:06/29/2024 09:48:01 PM Interpretation: Performing Lab: Notes/Report: [facility] , SARS-CoV-2 Ag NEGATIVE NEGATIVE This test [...] Performing Lab: see note ML - [facility] LB CBC AUTO DIFF Reviewed date:07/28/2024 10:17:10 AM Interpretation: Performing Lab: Notes/Report: [facility] , White Blood Count 6.7 4.0-11.0 10 [...] Performing Lab: see note ML - [facility] LB FOLATE Reviewed date:07/28/2024 07:31:04 PM Interpretation: Performing Lab: Notes/Report: [facility] , Folate 4.40 8.60-58.90 ng/mL Performing Lab: see note ML - [facility] LB Vitamin B12 Reviewed date:07/29/2024 01:04:17 PM Interpretation: Performing Lab: Notes/Report: [facility] , Vitamin B12 434 412-9261 pg/mL Performed at: - [facility] [id number] Stitch Bonding Machine Operator: Travis Menjivar PhD, Phone: [phone] Performing Lab: see note - [facility] LB XR lumbar spine min 4V Reviewed date:07/28/2024 07:31:04 PM Interpretation: Performing Lab: Notes/Report: Source Facility: [place] [address] XRay Report Signed Patient: DIANA BARRIGA MR#: [id number] : 1990 Acct:[id number] Age/Sex: 33 / F ADM Date: 07/28/24 Loc: LAB Attending Dr: Domingo Das M.D. Ordering Physician: Domingo Das M.D. Date of Service: 07/28/24 Procedure(s): XR lumbar spine min 4V Accession Number(s): [id number] cc: Domingo Das M.D. [place] [address] Patient Name: DIANA BARRIGA MRN: [id number] date: 1990 Sex: F Assigned Patient Location: LAB Current Patient Location: LAB Accession/Order Number: [id number] Exam Date: 07/28/2024 09:45 Report Date: 07/28/2024 [...] Signed By: 07/28/24 1108 DD/ 1105 TD/TT: Paper Control Clerk: [place] [address] XRay Report Signed Patient: RAMIN BARRIGA MR#: [id number] : 1990 Acct:[id number] Age/Sex: 33 / F ADM Date: 07/28/24 Loc: LAB Attending Dr: Radha Das M.D. Ordering Physician: Domingo Das M.D. Date of Service: 07/28/24 Procedure(s): XR lum bar spine min 4V Accession Number(s): [id number] cc: Domingo Das M.D. [place] [id number] Patient Name: DIANA BARRIGA MRN: [id number] date: 1990 Sex: F Assigned Patient Location: LAB Current Patient Location: LAB Accession/Order Numb er: [id number] Exam Date: 09:45 Report Date: 07/28/2024 11:05 [...] Dictated By: Manfred Rene M.D. Signed By: 07/28/248 DD/ 04 TD/TT: Paper Control Clerk: XR hip BI w PEL 1V Reviewed date:07/29/2024 01:04:17 PM Interpretation: Performing Lab: Notes/Report: Source Facility: [place] [address] XRay Report Signed Patient: DIANA BARRIGA MR#: [id number] : 1990 Acct:[id number] Age/Sex: 33 / F ADM Date: 07/28/24 Loc: LAB Attending Dr: Domingo Das M.D. Ordering Physician: Domingo Das M.D. Date of Service: 07/28/24 Procedure(s): XR hip BI w PEL 1V Accession Number(s): [id number] cc: Domingo Das M.D. [place] [address] Patient Name: DIANA BARRIGA MRN: [id number] date: 1990 Sex: F Assigned Patient Location: LAB Current Patient Location: Accession/Order Number: [id number] Exam Date: 07/28/2024 09:45 Report Date: 07/29/2024 [...] M.D. Signed By: 07/29/24451 DD/ 9 TD/TT: Paper Control Clerk: [place] [address] XRay Report Signed Patient: RAMIN BARRIGA MR#: [id number] : 1990 Acct:[id number] Age/Sex: 33 / F ADM Date: 07/28/24 Loc: LAB Attending Dr: Radha Das M.D. Ordering Physician: Domingo Das M.D. Date of Service: 07/28/24 Procedure(s): XR hip BI w PEL 1V Accession Number(s): [id number] cc: Domingo Das M.D. [place] [address] Patient Name: DIANA BARRIGA MRN: [id number] date: 1990 Sex: F Assigned Patient Location: LAB Current Patient Location: Accession/Order Numb er: [id number] Exam Date: 09:45 Report Date: 07/29/2024 04:50 [...] Manfred Rene M.D. Signed By: 07/29/24451 DD/ 045 TD/TT: Paper Control Clerk: Erythrocyte Sedimentation Ra te Reviewed date:09/08/2024 02:54:07 PM Interpretation: Performing Lab: Notes/Report: [facility] , Erythrocyte Sedimentation Rate 10 <=20 mm/hr Performing Lab: see note ML - [facility] LB CBC AUTO DIFF Reviewed date:09/28/2024 07:53:59 PM Interpretation: Performing Lab: Notes/Report: [facility] , White Blood Count 5.7 4.0-11.0 10 [...] Performing Lab: see note ML - [facility] LB PROF 14(COMP METB) Reviewed date:09/28/2024 07:53:59 PM Interpretation: Performing Lab: Notes/Report: [facility] , Sodium 143 136-145 mmol/L Potassium 3.6 [...] Performing Lab: see note ML - [facility] LB UA (CLEAN or CATCH) ARMED GUARD or M ICRO IF IND. Reviewed date:09/28/2024 07:53:59 PM Interpretation: Performing Lab: Notes/Report: [facility] , Color Urine LT. YELLOW YELLOW Clarity Urine SL CLOUDY CLEAR Specific [place] Urine 1.020 1.005-1.025 pH Urine 6.5 5.0-9.0 Protein Urine 30 NEG/TRACE mg/dL Glucose Urine UA NEGATIVE NEGATIVE mg/dL Bilirubin Urine NEGATIVE NEGATIVE Ketones Urine NEGATIVE NEGATIVE mg/dL Blood Urine MODERATE NEGATIVE Nitrite Urine POSITIVE NEGATIVE Urobilinogen Urine 1.0 0.2-1.0 EU/dL Leukocyte Esterase Urine SMALL NEGATIVE Urine Microscopic Indicated YES Performing Lab: see note ML - [facility] LB Manual Differential Reviewed date:09/28/2024 07:53:59 PM Interpretation: Performing Lab: Notes/Report: [facility] , Segmented Neutrophils % Manual 37.0 43.0-75.0 [...] Performing Lab: see note ML - [facility] LB CT abdomen pelvis wo con Reviewed date:09/28/2024 07:53:59 PM Interpretation: Performing Lab: Notes/Report: Source Facility: [facility] [place] [address] [place] [address] CT Scan Report Signed Patient: DIANA BARRIGA MR#: [id number] : 1990 Acct:[id number] Age/Sex: 34 / F ADM Date: 09/28/24 Loc: ER Attending Dr: Ordering Physician: Stephanie Ramirez Date of Service: 09/28/24 Procedure(s): CT abdomen pelvis wo con Accession Number(s): [id number] cc: Domingo Das M.D. [place] [address] Patient Name: DIANA BARRIGA MRN: [id number] date: 1990 Sex: F Assigned Patient Location: ER Current Patient Location: ER Accession/Order Number: [id number] Exam Date: 09/28/2024 15:52 Report Date: 09/28/2024 [...] Signed By: 09/28/24 1631 DD/ 1628 TD/TT: Paper Control Clerk: [address] [address] [address] Scan Report Signed Patient: RAMIN BARRIGA MR#: [id number] : 1990 Acct:[id number] Age/Sex: 34 / F ADM Date: 09/28/24 Loc: ER Attending Dr: Ordering Physician: Stephanie Ramirez Date of Service: 09/28/24 Procedure(s): CT abd omen pelvis wo con Accession Number(s): [id number] cc: Domingo Das M.D. [address] [address] Patient Name: DIANA BARRIGA MRN: [id number] date: 1990 Sex: F Assigned Patient Location: ER Current Patient Location: ER Accession/Order Numb er: [id number] Exam Date: 15:52 Report Date: 09/28/2024 16:28 [...] Signed By: 09/28/24 1631 DD/ 1628 TD/TT: Paper Control Clerk: UA (CLEAN or CATCH) ARMED GUARD or M ARIELO IF IND. Reviewed date:10/02/2024 08:18:34 PM Interpretation: Performing Lab: Notes/Report: [facility] , Color Urine LT. YELLOW YELLOW Clarity Urine CLOUDY CLEAR Specific [place] Urine 1.020 1.005-1.025 pH Urine 7.5 5.0-9.0 Protein Urine NEGATIVE NEG/TRACE mg/dL Glucose Urine UA NEGATIVE NEGATIVE mg/dL Bilirubin Urine NEGATIVE NEGATIVE Ketones Urine NEGATIVE NEGATIVE mg/dL Blood Urine NEGATIVE NEGATIVE Nitrite Urine NEGATIVE NEGATIVE Urobilinogen Urine 1.0 0.2-1.0 EU/dL Leukocyte Esterase Urine MODERATE NEGATIVE Urine Microscopic Indicated YES Performing Lab: see note ML - [facility] LB URINE MICROSCOPIC ONLY Reviewed date:10/02/2024 08:18:34 PM Interpretation: Performing Lab: Notes/Report: [facility] , WBC Urine 5-10 NONE SEEN #/HPF RBC Urine 0-2 0-2 #/HPF Bacteria Urine SMALL NONE SEEN #/HPF Mucus Urine TRACE NONE SEEN Squamous Epithelial Cell Urine FEW NONE/RARE #/LPF Crystals Seen? None Seen None Seen #/HPF Amorphous Sediment Urine FEW Cast Seen? NONE SEEN NONE SEEN #/LPF Urine Culture Indicated YES Performing Lab: see note ML - [facility] LB Urine Culture, Routine Reviewed date:10/04/2024 12:21:27 PM Interpretation: Performing Lab: Notes/Report: [facility] , Urine Culture, Routine See Below For Report Urine Culture, Routine Urine Culture, Routine Mixed urogenital greg Urine Culture, Routine Urine Culture, Routine 10,000-25,000 col bryon forming units per mL Urine Culture, Routine Urine Culture, Routine Performed at: CB - [facility] [place] Urine Culture, Routine Urine Culture, Routine [address] [place], [place] [id number] Urine Culture, Routine Urine Culture, Routine Stitch Bonding Machine Operator: Arie Menjivar PhD, Phone: [phone] Urine Culture, Routine Performing Lab: see note LC - [facility] LB SEE REPORT - Client Server Programmer Id information not found for OBX-specific editor producer legend Urine Culture - [facility] Reviewed date:12/07/2024 07:22:21 PM Interpretation: Performing Lab: Notes/Report: [facility] , Urine Culture - [facility] See Below For Report Urine Culture - [facility] 30,000 colonies/ml mixed Urine Culture - [facility] bacterial skin contaminants Urine Culture - [facility] 30,000 colonies/ml mixed Urine Culture - [facility] 2 Days Urine Culture - [facility] 30,000 colonies/ml mixed Urine Culture - [facility] Urine Culture - [facility] 30,000 colonies/ml mixed Urine Culture - [facility] Testing performed a [facility] Urine Culture - [facility] 30,000 colonies/ml mixed Urine Culture - [facility] [address] [facility] [place] [address] Urine Culture - [facility] 30,000 colonies/ml mixed Performing Lab: see note ML - [facility] LB NM KIDNEY W FLOW AND FUNCTIO N W PHARMACOLOGICAL INTERVENTION Reviewed date:01/22/2025 03:38:47 PM Interpretation: Performing Lab: Notes/Report: EXAMINATION: NM KIDNEY W FLOW AND FUNCTION W PHARMACOLOGICAL INTERVENTION Performed at: [place] [id number] Performed at: PROF 14(COMP METB) Reviewed date:01/22/2025 03:38:47 PM Interpretation: Performing Lab: Notes/Report: [facility] , Sodium 139 136-145 mmol/L Potassium [...] Performing Lab: see note ML - [facility] LB FLUORO FOR SURGICAL PROCEDUR ES Reviewed date:03/28/2025 04:31:58 PM Interpretation: Performing Lab: Notes/Report: Radiology exam is complete. No Radiologist dictation. Please follow up with ordering provider. Performed at: [facility] [address] [place] [address] Performed at: XR lumbar spine min 4V Reviewed date:03/28/2025 04:31:58 PM Interpretation: Performing Lab: Notes/Report: Source Facility: [place] [address] XRay Report Signed Patient: DIANA BARRIGA MR#: [id number] : 1990 Acct:[id number] Age/Sex: 34 / F ADM Date: 03/28/25 Loc: RAD Attending Dr: Domingo Das M.D. Ordering Physician: Domingo Das M.D. Date of Service: 03/28/25 Procedure(s): XR lumbar spine min 4V Accession Number(s): [id number] cc: Domingo Das M.D. [place] [id number] Patient Name: DIANA BARRIGA MRN: [id number] date: 1990 Sex: F Assigned Patient Location: RAD Current Patient Location: [facility] Accession/Order Number: [id number] Exam Date: 03/28/2025 08:29 Report Date: 03/28/2025 08:35 At the request of: DOMINGO DAS MD Procedure: XR lumbar spine min 4V [...] No soft tissue abnormalities are seen. XR/XR lumbar spine min 4V IMPRESSION: NO ACUTE BONY FINDINGS. LUMBAR SPINE [...] Celis M.D. 03/28/2025 8:35 AM Dictation Location: [place] [address] Electronically authenticated by: [id number] Y Date: 03/28/2025 08:35 Dictated By: Imani Celis M.D. Signed By: 03/28/2538 DD/ 4 TD/TT: Paper Control Clerk: [place] [address] XRay Report Signed Patient: RAMIN BARRIGA MR#: [id number] : 1990 Acct:[id number] Age/Sex: 34 / F ADM Date: 03/28/25 Loc: RAD Attending Dr: Radha Das M.D. Ordering Physician: Domingo Das M.D. Date of Service: 03/28/25 Procedure(s): XR lum bar spine min 4V Accession Number(s): [id number] cc: Domingo Das M.D. [address] [address] Patient Name: DIANA BARRIGA MRN: [id number] date: 1990 Sex: F Assigned Patient Location: RAD Current Patient Location: RAD Accession/Order Numb er: [id number] Exam Date: 03/28/2025 08:29 Report Date: 03/28/2025 08:35 At the request of: DOMINGO DAS MD Procedure: XR lumbar spine min 4V [...] soft tissue abnormalities are seen. X R/XR lumbar spine min 4V IMPRESSION: NO ACUTE BONY FINDINGS. LUMBAR SPINE [...] Celis M.D. 03/28/2025 8:35 AM Dictation Location: [place] [address] Electronically authenticated by: [id number] Y Date: 03/28/2025 08:35 Dictated By: Imani Celis M.D. Signed By: 03/28/25 0838 DD/ TD/TT: Paper Control Clerk: RUFINO Valdes, reflex to culture Reviewed date:12/03/2024 02:14:40 PM Interpretation: Performing Lab: Notes/Report: [facility] , Color Urine DK. ORANGE YELLOW Clarity Urine CLEAR CLEAR Specific [place] Urine <=1.005 1.005-1.025 pH Urine 6.5 5.0-9.0 [...] SEEN NONE SEEN #/LPF Urine Culture Indicated YES-[facility] Performing Lab: see note ML - [facility] LB PROF 14(COMP METB) Reviewed date:12/03/2024 02:14:40 PM Interpretation: Performing Lab: Notes/Report: [facility] , Sodium 142 136-145 mmol/L Potassium 3.2 [...] 1.1 Performing Lab: see note ML - [facility] LB LIPASE Reviewed date:12/03/2024 02:14:40 PM Interpretation: Performing Lab: Notes/Report: [facility] , Lipase 29.0 16.0-77.0 U/L Performing Lab: see note ML - [facility] LB LACTATE or LACTIC ACID Reviewed date:12/03/2024 02:14:40 PM Interpretation: Performing Lab: Notes/Report: [facility] , Lactate/Lactic Acid 1.1 0.4-2.0 mmol/L Performing Lab: see note ML - [facility] LB CBC AUTO DIFF Reviewed date:12/03/2024 02:14:40 PM Interpretation: Performing Lab: Notes/Report: [facility] , White Blood Count 7.3 4.0-11.0 10 [...] 3/uL Performing Lab: see note ML - [facility] LB Urine Culture, Routine Reviewed date:10/03/2024 06:15:29 PM [...] ANASTASIA Status Urine Culture, Routine [facility], Routine Organism: Gram negative christelle : O:ECMS Isolated O:GNR Isolated Organism: 1.1 Antibiotic Interpretation ANASTASIA Status Urine Culture, Routine [address] [place], [place] [id number] Urine Culture, Routine Organism: Gram negative christelle : O:ECMS Isolated O:GNR Isolated Organism: 1.1 Antibiotic Interpretation ANASTASIA Status Urine Culture, Routine Stitch Bonding Machine Operator: Arie Menjivar PhD, Phone: [phone] Urine Culture, Routine Organism: Gram negative christelle [...] LC - [facility] LB SEE REPORT - Client Server Programmer Id information not found for OBX-specific editor producer legend URINE MICROSCOPIC ONLY Reviewed date:09/28/2024 07:53:59 PM Interpretation: Performing Lab: Notes/Report: [facility] , WBC Urine 50-75 NONE SEEN #/HPF RBC Urine 2-5 0-2 #/HPF Bacteria Urine LARGE NONE SEEN #/HPF Mucus Urine MODERATE NONE SEEN Squamous Epithelial Cell Urine FEW NONE/RARE #/LPF Crystals Seen? None Seen None Seen #/HPF Cast Seen? NONE SEEN NONE SEEN #/LPF Urine Culture Indicated YES Performing Lab: see note ML - [facility] LB TSH Reviewed date:07/28/2024 07:31:04 PM Interpretation: Performing Lab: Notes/Report: [facility] , Thyroid Stimulating Hormone 1.218 0.358-3.740 uIU/mL Performing Lab: see note ML - [facility] LB T4 Reviewed date:07/28/2024 07:31:04 PM Interpretation: Performing Lab: Notes/Report: [facility] , T4 Thyroxine 8.40 4.80-13.90 ug/dL Performing Lab: see note ML - [facility] PROF 14(COMP METB) Reviewed date:07/28/2024 07:31:04 PM Interpretation: Performing Lab: Notes/Report: [facility] , Sodium 139 136-145 mmol/L Potassium 3.8 3.5-5.1 mmol/L Chloride 102 98-107 mmol/L Carbon Dioxide 26.7 21.0-32.0 mmol/L Anion Gap 14.1 Glucose 91 74-106 mg/dL Blood Urea Nitrogen 6.0 7.0-18.0 mg/dL Creatinine 0.90 0.55-1.02 mg/dL Estimated GFR ( [place] >60 >=60 mL/min/1.73m 2 Estimated GFR (Non- [...] Performing Lab: see note ML - [facility] LB IRON Reviewed date:07/28/2024 07:31:04 PM Interpretation: Performing Lab: Notes/Report: [facility] , Iron 54.0 50.0-170.0 ug/dL Performing Lab: see note ML - [facility] FREE T3 Reviewed date:07/28/2024 07:31:04 PM Interpretation: Performing Lab: Notes/Report: [facility] , Free T3 2.73 2.18-3.98 pg/mL Performing Lab: see note ML - [facility] LB XR cervical spine 2-3V Reviewed date:05/03/2024 08:45:37 PM Interpretation: Performing Lab: Notes/Report: Source Facility: [facility] [place] [address] [address] XRay Report Signed Patient: DIANA BARRIGA MR#: [id number] : 1990 Acct:[id number] Age/Sex: 33 / F ADM Date: 05/02/24 Loc: ER Attending Dr: Ordering Physician: Cassi Ruano Date of Service: 05/03/24 Procedure(s): XR cervical spine 2-3V Accession Number(s): [id number] cc: Domingo Das M.D.; Cassi Ruano [place] [address] Patient Name: DIANA BARRIGA MRN: [id number] date: 1990 Sex: F Assigned Patient Location: ER Current Patient Location: Accession/Order Number: [id number] Exam Date: 05/03/2024 01:25 Report Date: 05/03/2024 [...] Signed By: 05/03/24 0554 DD/ 0551 TD/TT: Paper Control Clerk: [place] [address] XRay Report Signed Patient: RAMIN BARRIGA MR#: [id number] : 1990 Acct:[id number] Age/Sex: 33 / F ADM Date: 05/02/24 Loc: ER Attending Dr: Ordering Physician: Cassi Ruano Date of Service: 05/03/24 Procedure(s): XR cervical spine 2-3V Accession Number(s): [id number] cc: Domingo Das M.D. ; Cassi Ruano [address] [address] Patient Name: DIANA BARRIGA MRN: [id number] date: 1990 Sex: F Assigned Patient Location: ER Current Patient Location: Accession/Order Numb er: [id number] Exam Date: 05/03/2024 01:25 Report Date: 05/03/2024 05:51 At the request of: CASSI RUANO Procedure: XR cervic al spine 2-3V EXAM: [...] Signed By: 05/03/24 0554 DD/ 0551 TD/TT: Paper Control Clerk: XR thoracic spine 3V Reviewed date:05/03/2024 08:45:37 PM Interpretation: Performing Lab: Notes/Report: Source Facility: [place] [address] XRay Report Signed Patient: DIANA BARRIGA MR#: [id number] : 1990 Acct:[id number] Age/Sex: 33 / F ADM Date: 05/02/24 Loc: ER Attending Dr: Ordering Physician: Cassi Ruano Date of Service: 05/03/24 Procedure(s): XR thoracic spine 3V Accession Number(s): [id number] cc: Domingo Das M.D.; Cassi Ruano [place] [address] Patient Name: DIANA BARRIGA MRN: [id number] date: 1990 Sex: F Assigned Patient Location: ER Current Patient Location: Accession/Order Number: [id number] Exam Date: 05/03/2024 01:25 Report Date: 05/03/2024 05:51 At the request of: CASSI MARKER Procedure: XR thoracic spine 3V EXAM: XR [...] Signed By: 05/03/24 0554 DD/ 0551 TD/TT: Paper Control Clerk: [place] [address] XRay Report Signed Patient: RAMIN BARRIGA MR#: [id number] : 1990 Acct:[id number] Age/Sex: 33 / F ADM Date: 05/02/24 Loc: ER Attending Dr: Ordering Physician: Cassi Ruano Date of Service: 05/03/24 Procedure(s): XR thoracic spine 3V Accession Number(s): [id number] cc: Domingo Das M.D. ; Cassi Ruano [address] [address] Patient Name: DIANA BARRIGA MRN: [id number] date: 1990 Sex: F Assigned Patient Location: ER Current Patient Location: Accession/Order Numb er: [id number] Exam Date: 05/03/2024 01:25 Report Date: 05/03/2024 05:51 At the request of: CASSI MARKER Procedure: XR thorac ic spine 3V EXAM: [...] Signed By: 05/03/24 0554 DD/ 0551 TD/TT: Paper Control Clerk: CT abdomen pelvis wo con Reviewed date:04/21/2024 12:43:25 PM Interpretation: Performing Lab: Notes/Report: Source Facility: [facility] [place] [address] [place] [address] CT Scan Report Signed Patient: DIANA BARRIGA MR#: [id number] : 1990 Acct:[id number] Age/Sex: 33 / F ADM Date: 04/20/24 Loc: ER Attending Dr: Ordering Physician: Seng Verdin Date of Service: 04/20/24 Procedure(s): CT abdomen pelvis wo con Accession Number(s): [id number] cc: Domingo Das M.D. [place] [address] Patient Name: DIANA BARRIGA MRN: [id number] date: 1990 Sex: F Assigned Patient Location: ER Current Patient Location: ER Accession/Order Number: [id number] Exam Date: 04/20/2024 23:07 Report Date: 04/21/2024 [...] Signed By: 04/21/24 0032 DD/ 0029 TD/TT: Paper Control Clerk: [address] [address] [address] Scan Report Signed Patient: RAMIN BARRIGA MR#: [id number] : 1990 Acct:[id number] Age/Sex: 33 / F ADM Date: 04/20/24 Loc: ER Attending Dr: Ordering Physician: Seng Verdin Date of Service: 04/20/24 Procedure(s): CT abd omen pelvis wo con Accession Number(s): [id number] cc: Domingo Das M.D. [address] [address] Patient Name: DIANA BARRIGA MRN: [id number] date: 1990 Sex: F Assigned Patient Location: ER Current Patient Location: ER Accession/Order Numb er: [id number] Exam Date: 04/20/2024 23:07 Report Date: 04/21/2024 [...] Signed By: 04/21/24 0032 DD/ 0029 TD/TT: Paper Control Clerk: RUFINO (CLEAN or CATCH) ARMED GUARD or M ARIELO IF IND. Reviewed date:04/21/2024 04:58:09 PM Interpretation: Performing Lab: Notes/Report: [facility] , Color Urine YELLOW YELLOW Clarity Urine CLEAR CLEAR Specific [place] Urine 1.020 1.005-1.025 pH Urine 7.5 5.0-9.0 Protein Urine NEGATIVE NEG/TRACE mg/dL Glucose Urine UA NEGATIVE NEGATIVE mg/dL Bilirubin Urine NEGATIVE NEGATIVE Ketones Urine NEGATIVE NEGATIVE mg/dL Blood Urine NEGATIVE NEGATIVE Nitrite Urine NEGATIVE NEGATIVE Urobilinogen Urine 1.0 0.2-1.0 EU/dL Leukocyte Esterase Urine NEGATIVE NEGATIVE Urine Microscopic Indicated NO Performing Lab: see note ML - [facility] LB PROF 14(COMP METB) Reviewed date:04/21/2024 04:58:09 PM Interpretation: Performing Lab: Notes/Report: [facility] , Sodium 137 136-145 mmol/L Potassium 3.6 [...] 1.0 Performing Lab: see note ML - [facility] LB LACTATE or LACTIC ACID Reviewed date:04/21/2024 04:58:09 PM Interpretation: Performing Lab: Notes/Report: [facility] , Lactate/Lactic Acid 1.0 0.4-2.0 mmol/L Performing Lab: see note ML - [facility] LB CBC AUTO DIFF Reviewed date:04/21/2024 04:58:09 PM Interpretation: Performing Lab: Notes/Report: [facility] , White Blood Count 7.0 4.0-11.0 10 [...] 10 3/uL Performing Lab: see note - [facility] LB ACETAMINOPHEN Reviewed date:04/10/2024 03:22:53 PM Interpretation: Performing Lab: Notes/Report: [facility] , Acetaminophen <2.0 10.0-30.0 ug/mL Performing Lab: see note [facility] PROF 14(COMP METB) Reviewed date:09/08/2024 02:54:07 PM Interpretation: Performing Lab: Notes/Report: [facility] , Sodium 141 136-145 mmol/L Potassium 3.7 [...] 1.1 Performing Lab: see note ML - [facility] LB Calcium, Ionized, Serum Reviewed date:07/29/2024 01:04:17 PM Interpretation: Performing Lab: Notes/Report: [facility] , Calcium, Ionized, Serum 5.2 4.5-5.6 mg/dL Performed at: - [facility] [address] [id number] Stitch Bonding Machine Operator: Travis Menjivar PhD, Phone: [phone] Performing Lab: see note LC - [facility] LB VITAMIN D 25 [place] Reviewed date:07/28/2024 07:31:04 PM Interpretation: Performing Lab: Notes/Report: [facility] , Vitamin D 21.7 <20 ng/mL Vit D deficient 20-<30 ng/mL Vit D insufficient 30-100 ng/mL Vit D sufficient >100 ng/mL Potential Toxicity Performing Lab: see note ML - [facility] LB PHOSPHORUS Reviewed date:07/28/2024 07:31:04 PM Interpretation: Performing Lab: Notes/Report: [facility] , Phosphorus 3.6 2.6-4.7 mg/dL Performing Lab: see note ML - [facility] LB MAGNESIUM Reviewed date:07/28/2024 07:31:04 PM Interpretation: Performing Lab: Notes/Report: [facility] , Magnesium 1.5 1.8-2.4 mg/dL Performing Lab: see note ML - [facility] LB Urine Culture - [facility] Reviewed date:01/24/2025 03:36:36 PM Interpretation: Performing Lab: Notes/Report: [facility] , Urine Culture - [facility] See Below For Report Urine Culture - [facility] Testing performed at [facility] O:ESCCOL Isolated Urine Culture - [facility] [place] Count Organism: 1.1 Antibiotic Interpretation ANASTASIA Status Urine Culture - [facility] [address] [place] [address] Urine Culture - [facility] Testing performed at [facility] O:ESCCOL Isolated Urine Culture - [facility] [place] Count Organism: 1.1 Antibiotic Interpretation ANASTASIA Status Urine Culture - [facility] See Below For Report Urine Culture - [facility] Testing performed at [facility] O:ESCCOL Isolated Urine Culture - [facility] [place] Count Organism: 1.1 Antibiotic Interpretation ANASTASIA Status Urine Culture - [facility] See Below For Report Urine Culture - [facility] Testing performed at [facility] O:ESCCOL Isolated Urine Culture - [facility] [place] Count Organism: 1.1 Antibiotic Interpretation ANASTASIA Status Urine Culture - [facility] >100,000 Urine Culture - [facility] Testing performed at [facility] O:ESCCOL Isolated Urine Culture - [facility] [place] Count Organism: 1.1 Antibiotic Interpretation ANASTASIA Status Urine Culture - [facility] See Below For Report Urine Culture - [facility] Testing performed at [facility] O:ESCCOL Isolated Urine Culture - [facility] [place] Count Organism: 1.1 Antibiotic Interpretation ANASTASIA Status Urine Culture - [facility] Amikacin S F Urine Culture - [facility] Testing performed at [facility] O:ESCCOL Isolated Urine Culture - [facility] [place] Count Organism: 1.1 Antibiotic Interpretation ANASTASIA Status Urine Culture - [facility] Amoxicillin/Clavula chacho S F Urine Culture - [facility] Testing performed at [facility] O:ESCCOL Isolated Urine Culture - [facility] [place] Count Organism: 1.1 Antibiotic Interpretation ANASTASIA Status Urine Culture - [facility] Ampicillin S F Urine Culture - [facility] Testing performed at [facility] O:ESCCOL Isolated Urine Culture - [facility] [place] Count Organism: 1.1 Antibiotic Interpretation ANASTASIA Status Urine Culture - [facility] Aztreonam S F Urine Culture - [facility] Testing performed at [facility] O:ESCCOL Isolated Urine Culture - [facility] [place] Count Organism: 1.1 Antibiotic Interpretation ANASTASIA Status Urine Culture - [facility] Ceftazidime S F Urine Culture - [facility] Testing performed at [facility] O:ESCCOL Isolated Urine Culture - [facility] [place] Count Organism: 1.1 Antibiotic Interpretation ANASTASIA Status Urine Culture - [facility] Ceftazidime/Avibact am S F Urine Culture - [facility] Testing performed at [facility] O:ESCCOL Isolated Urine Culture - [facility] [place] Count Organism: 1.1 Antibiotic Interpretation ANASTASIA Status Urine Culture - [facility] Ceftolozane/Tazobac lewis S F Urine Culture - [facility] Testing performed at [facility] O:ESCCOL Isolated Urine Culture - [facility] [place] Count Organism: 1.1 Antibiotic Interpretation ANASTASIA Status Urine Culture - [facility] Ciprofloxacin S F Urine Culture - [facility] Testing performed at [facility] O:ESCCOL Isolated Urine Culture - [facility] [place] Count Organism: 1.1 Antibiotic Interpretation ANASTASIA Status Urine Culture - [facility] Ertapenem S F Urine Culture - [facility] Testing performed at [facility] O:ESCCOL Isolated Urine Culture - [facility] [place] Count Organism: 1.1 Antibiotic Interpretation ANASTASIA Status Urine Culture - [facility] Gentamicin S F Urine Culture - [facility] Testing performed at [facility] O:ESCCOL Isolated Urine Culture - [facility] [place] Count Organism: 1.1 Antibiotic Interpretation ANASTASIA Status Urine Culture - [facility] Levofloxacin S F Urine Culture - [facility] Testing performed at [facility] O:ESCCOL Isolated Urine Culture - [facility] [place] Count Organism: 1.1 Antibiotic Interpretation ANASTASIA Status Urine Culture - [facility] Meropenem S F Urine Culture - [facility] Testing performed at [facility] O:ESCCOL Isolated Urine Culture - [facility] [place] Count Organism: 1.1 Antibiotic Interpretation ANASTASIA Status Urine Culture - [facility] Meropenem/Vaborbact am S F Urine Culture - [facility] Testing performed at [facility] O:ESCCOL Isolated Urine Culture - [facility] [place] Count Organism: 1.1 Antibiotic Interpretation ANASTASIA Status Urine Culture - [facility] Nitrofurantoin S F Urine Culture - [facility] Testing performed at [facility] O:ESCCOL Isolated Urine Culture - [facility] [place] Count Organism: 1.1 Antibiotic Interpretation ANASTASIA Status Urine Culture - [facility] Tetracycline S F Urine Culture - [facility] Testing performed at [facility] O:ESCCOL Isolated Urine Culture - [facility] [place] Count Organism: 1.1 Antibiotic Interpretation ANASTASIA Status Urine Culture - [facility] Tigecycline S F Urine Culture - [facility] Testing performed at [facility] O:ESCCOL Isolated Urine Culture - [facility] [place] Count Organism: 1.1 Antibiotic Interpretation ANASTASIA Status Urine Culture - [facility] Tobramycin S F Urine Culture - [facility] Testing performed at [facility] O:ESCCOL Isolated Urine Culture - [facility] [place] Count Organism: 1.1 Antibiotic Interpretation ANASTASIA Status Urine Culture - [facility] Ampicillin/Sulbactam S F Urine Culture - [facility] Testing performed at [facility] O:ESCCOL Isolated Urine Culture - [facility] [place] Count Organism: 1.1 Antibiotic Interpretation ANASTASIA Status Urine Culture - [facility] Cefazolin S F Urine Culture - [facility] Testing performed at [facility] O:ESCCOL Isolated Urine Culture - [facility] [place] Count Organism: 1.1 Antibiotic Interpretation ANASTASIA Status Urine Culture - [facility] Cefepime S F Urine Culture - [facility] Testing performed at [facility] O:ESCCOL Isolated Urine Culture - [facility] [place] Count Organism: 1.1 Antibiotic Interpretation ANASTASIA Status Urine Culture - [facility] Ceftriaxone S F Urine Culture - [facility] Testing performed at [facility] O:ESCCOL Isolated Urine Culture - [facility] [place] Count Organism: 1.1 Antibiotic Interpretation ANASTASIA Status Urine Culture - [facility] Cefuroxime S F Urine Culture - [facility] Testing performed at [facility] O:ESCCOL Isolated Urine Culture - [facility] [place] Count Organism: 1.1 Antibiotic Interpretation ANASTASIA Status Urine Culture - [facility] Piperacillin/Tazoba ctam S F Urine Culture - [facility] Testing performed at [facility] O:ESCCOL Isolated Urine Culture - [facility] [place] Count Organism: 1.1 Antibiotic Interpretation ANASTASIA Status Urine Culture - [facility] Trimethoprim/Sulfa S F Urine Culture - [facility] Testing performed at [facility] O:ESCCOL Isolated Urine Culture - [facility] [place] Count Organism: 1.1 Antibiotic Interpretation ANASTASIA Status Performing Lab: see note ML - [facility] LB SEE REPORT - Client Server Programmer Id information not found for OBX-specific editor producer legend UA Micro, reflex to culture Reviewed date:01/22/2025 03:38:47 PM Interpretation: Performing Lab: Notes/Report: [facility] , Color Urine LT. YELLOW YELLOW Clarity Urine CLOUDY CLEAR Specific [place] Urine 1.010 1.005-1.025 pH Urine 6.5 5.0-9.0 [...] SEEN NONE SEEN #/LPF Urine Culture Indicated YES-[facility] Performing Lab: see note ML - [facility] LB HCG Qualitative* Reviewed date:01/22/2025 03:38:47 PM Interpretation: Performing Lab: Notes/Report: [facility] , HCG Qualitative NEGATIVE NEGATIVE Performing Lab: see note - [facility] LB LACTATE or LACTIC ACID Reviewed date:01/22/2025 03:38:47 PM Interpretation: Performing Lab: Notes/Report: [facility] , Lactate/Lactic Acid 1.3 0.4-2.0 mmol/L Performing Lab: see note ML - [facility] LB CBC AUTO DIFF Reviewed date:01/22/2025 03:38:47 PM Interpretation: Performing Lab: Notes/Report: [facility] , White Blood Count 8.2 4.0-11.0 10 [...] Performing Lab: see note ML - [facility] LB FL VOIDING URETHROCYSTOGRAM S AND I Reviewed date:01/22/2025 03:38:47 PM Interpretation: Performing Lab: Notes/Report: EXAMINATION: Performed at: [place] - [address] [address] Performed at: XR abdomen 1V Reviewed date:12/03/2024 02:14:40 PM Interpretation: Performing Lab: Notes/Report: Source Facility: [facility]-[address] [place] [id number] [address] XRay Report Signed Patient: DIANA BARRIGA MR#: [id number] : 1990 Acct:[id number] Age/Sex: 34 / F ADM Date: 12/02/24 Loc: ER Attending Dr: Ordering Physician: Ninoska Leonard Date of Service: 12/02/24 Procedure(s): XR abdomen 1V Accession Number(s): [id number] cc: Domingo Das M.D.; Ninoska Leonard [place] [id number] Patient Name: DIANA BARRIGA MRN: [id number] date: 1990 Sex: F Assigned Patient Location: ER Current Patient Location: Accession/Order Number: [id number] Exam Date: 12/02/2024 18:12 Report Date: 12/02/2024 [...] M.D. Signed By: 12/02/242008 DD/ 06 TD/TT: Paper Control Clerk: [place] [address] XRay Report Signed Patient: RAMIN BARRIGA MR#: [id number] : 1990 Acct:[id number] Age/Sex: 34 / F ADM Date: 12/02/24 Loc: ER Attending Dr: Ordering Physician: Ninoska Leonard Date of Service: 12/02/24 Procedure(s): XR abd omen 1V Accession Number(s): [id number] cc: Domingo Das M.D. ; Ninoska Leonard [place] [id number] Patient Name: DIANA BARRIGA MRN: [facility]:[id number] date: 1990 Sex: F Assigned Patient Location: ER Current Patient Location: Accession/Order Numb er: [id number] Exam Date: 12/02/2024 18:12 Report Date: 12/02/2024 [...] M.D. Signed By: 12/02/242008 DD/ 06 TD/TT: Paper Control Clerk: Reason For Referral Diagnosis 1 Cervical radiculopat hy (M54.12) Referral Organization [facility] Referring Provider First Name Kendrick Referring Provider Last Name Thiago Referring Provider Speciality Family Med icine Referred Provider [facility], Physical Therap y Referred Provider Specialty Physical Med icine and Rehabilitation Referral Priority Routine Diagnosis 1 Pyelonephritis (N12) Referral Organization [facility] Referring Provider First Name Kendrick Referring Provider Last Name Thiago Referring Provider Speciality Family Med icine Referred Organization [facility] Referred Provider BREONNA SANCHEZ Referred Address [address],[place], [place],[address],[place] Referred Provider Specialty Urology Referral Priority Routine Diagnosis 1 Low back pain at [facility] (M54.50) Referral Organization [facility] Referring Provider First Name Kendrick Referring Provider Last Name Thiago Referring Provider Speciality Family Med icine Referred Provider [facility], Physical Therap y Referred Provider Specialty Physical The rapist Referral Priority Routine Medications Medication SIG (Take, [...] Problem Status W/U Status Risk Notes Problem 03998174 Essential (primary) hypertension (I10) Active confirmed Problem 336360804 Gastritis and duodenitis (535.50) Active confirmed Problem 222530990 Bipolar disorder , unspecified (F31.9) Active confirmed Problem Hypomagnesemia (214169492) Hypomagnesemia (E83.42) Active confirmed Problem 47247101 Anxiety disorder , unspecified (F41.9) Active confirmed Problem 238533828 Insomnia, unspecified (G47.00) Active confirmed Problem 97110985 Other chronic pa in (G89.29) Active confirmed Problem Streptococcal pharyngitis (09791893) Streptococcal pharyngitis (J02.0) Active confirmed Problem 660087189 Calculus of kidn ey (N20.0) Active confirmed Problem Sprain of calcaneofibular ligament (43919147) Sprain of calcaneofibular ligament of left ankle, initial encounter (S93.412A) Active confirmed Problem Gastroesophageal reflux disease (720947867) GERD (gastroesophageal reflux disease) (K21.9) Active confirmed Problem Lumbar radiculopathy (746128681) Lumbar radiculopathy (M54.16) Active confirmed Problem Kidney stone (12317987) Kidney stones (N20.0) Active confirmed Problem Nephrolithiasis (77241258) Nephrolithiasis (N20.0) Active confirmed Problem Gastritis (5845734) Gastritis (K29.70) Active c onfirmed Problem Well adult (251652639) Well adult (Z00.00) Active confirmed Problem Lesion of ulnar nerve (604252056) Ulnar nerve compression, right (G56.21) Active confirmed Problem Pyelonephritis (23755075) Pyelonephritis (N12) Active confirmed Problem Muscle spasm (47087536) Muscle spasm (M62.838) Active confirmed Problem Overweight (353015831) Over weight (E66.3) Active confirmed Problem Lesion of ulnar nerve (770432324) Ulnar nerve compression, left (G56.22) Active confirmed Problem Entrapment of left ulnar nerve (442473217794137) Entrapment of left ulnar nerve (G56.22) Active confirmed Problem Superficial thrombophlebitis (9978916) Superficial thrombophlebitis (I80.9) Active confirmed Problem Mass of scalp (957247749) Mass of scalp (R22.0) Active confirmed Problem Lesion of ulnar nerve (718022802) Impingement of right ulnar nerve (G56.21) Active confirmed Problem Acute urinary tract infection (232341157) Acute UTI (N39.0) Active confirmed Problem Kidney stone (86426373) Kidney stone on right side (N20.0) Active confirmed Problem Retroflexion of uterus (95369333) Retroflexion of uterus (N85.4) Active confirmed Problem 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, 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 Problem Muscle pain (25429103) Myalgia, unspecified site (M79.10) Active confirmed Problem Vesicoureteric reflux (disorder) (303487680) VUR (vesicoureteric reflux) (N13.70) Active confirmed Problem 93719533 Depression, unspecified (F32.A) Active confirmed Problem 260590342 Low back pain, unspecified (M54.50) Active confirmed [...] N/A Encounters Encounter Location Date Provider Diagnosis [facility]rology [address] [address] [place] [address] 01/26/2025 Breonna Sanchez [facility] [place] [address] 03/16/2025 Breonna Sanchez Urinary tract infect ion, site not specified N39.0 [facility] [address] [place] [address] 03/28/2025 Kendrick Hoy Low back pain at multiple sites M54.50 [facility] [address] [place] [address] 09/07/2024 Kendrick Hoy Pyelonephritis N12 a nd Kidney stones N20.0 [facility] [address] [place] [address] 09/08/2024 Kendrick Hoy [facility] [address] [place] [address] 10/03/2024 Kendrick Arnavy [facility] [address] [place] [address] 01/05/2025 Breonna Sanchez VUR (vesicoureteric reflux) N13.70 [facility] [address] [place] [place] [address] 01/23/2025 Kendrick Joséy [facility] [address] [place] [address] 01/24/2025 Kendrick Hoy [facility] [address] [place] [address] 06/29/2024 Kendrick Joséy [facility] [address] [place] [address] 07/28/2024 Kendrick Joséy [facility] [address] [place] [address] 07/29/2024 Kendrick Joséy [facility] [address] [place] [address] 04/22/2024 Kendrick Hoy Kidney stones N20.0 and Pyelonephritis N12 [facility] [address] [place] [address] 05/04/2024 Kendrick Hoy Cervical radiculopat hy M54.12 [facility] [address] [place] [address] 06/29/2024 Kendrick Hoy Acute non-recurrent sinusitis, unspecified location J01.90 and Nasal congestion R09.81 [facility] [address] [place] [address] 09/07/2024 Kendrick Hoy Well adult Z00.00 ; Hypomagnesemia E83.42 ; GERD (gastroesophageal reflux disease) K21.9 and Kidney stones N20.0 [facility] [address] [place] [address] 10/06/2024 Kendrick Hoy Acute UTI N39.0 [facility] [address] [place] [address] 12/01/2024 Kendrick Hoy Acute UTI N39.0 ; UT I (urinary tract infection), uncomplicated N39.0 and Dysuria R30.0 [facility] [address] [place] [address] 02/01/2025 Kendrick Hoy Kidney stones N20.0 [facility] [address] [place] [address] 03/15/2025 Kendrick Hoy Essential (primary) hypertension I10 and Low back pain, unspecified M54.50 [facility] [address] [place] [address] 03/23/2025 Kendrick Hoy Lumbar radiculopathy M54.16 [facility] [address] [place] [address] 04/19/2024 Kendrick Hoy Nephrolithiasis N20. 0 ; Ulnar nerve compression, left G56.22 and Ulnar nerve compression, right G56.21 [facility] [address] [place] [address] 07/28/2024 Kendrick Hoy Myalgia, unspecified site M79.10 ; Low back pain, unspecified M54.50 and Muscle spasm M62.838 [facility] [address] [place] [address] 09/30/2024 Kendrick Hoy Kidney stones N20.0 and Pyelonephritis N[address] [address] 01/24/2025 Breonna Sanchez VUR (vesicoureteric reflux) N13.70 ; Kidney stones N20.0 and UTI (urinary tract infection), uncomplicated N39.[address] [address] 03/16/2025 Breonna Sanchez Dysuria R30.0 and UT I (urinary tract infection), uncomplicated N39.[address] [address] 11/24/2024 Breonna Sanchez Acute UTI N39.0 ; Ki dney stones N20.0 ; Pyelonephritis N12 and VUR (vesicoureteric reflux) N13.70 Assessments Encounter Date Diagnosis (ICD Code) Assessment Notes Treatment Notes Treatment Clinical Notes Section Notes 09/07/2024 Well adult (ICD-10 - Z00.00) 09/07/2024 Hypomagnesemia (ICD-10 - E83.42) 04/19/2024 Nephrolithiasis (ICD-10 - N20.0) 04/19/2024 Ulnar nerve compression, left (ICD-10 - G56.22) 04/22/2024 Kidney stones (ICD-10 - N20.0) 04/22/2024 Pyelonephritis (ICD-10 - N12) 05/04/2024 Cervical radiculopathy (ICD-10 - M54.12) 06/29/2024 Acute non-recurrent sinusitis, unspecified location (ICD-10 - J01.90) Rest and drink more liquids, especially water. You may use a humidifier or vaporizer to help keep the drainage moist. Pygs-xca-zdkanrn Nasal Saline may help the stuffy and runny nose. Use Ibuprofen and or Tylenol as needed for fever, chills, body aches or pain. Children 5 years old should not be given wlwy-lna-sgnleap cough and cold medications such as guaifenesin and dextromethorphan. If you're over age 5, you may try ltls-cds-dfawokq cold medications such as guaifenesin and dextromethorphan, [...] 10/06/2024 Acute UTI (ICD-10 - N39.0) 01/24/2025 VUR (vesicoureteric reflux) (ICD-10 - N13.70) 01/24/2025 Kidney stones (ICD-10 - N20.0) 07/28/2024 Myalgia, unspecified site (ICD-10 - M79.10) needs labs adn x-ray low back and hips 07/28/2024 Low back pain, unspecified (ICD-10 - M54.50) 12/01/2024 Acute UTI (ICD-10 - N39.0) 12/01/2024 [...] until they are finished. You can use vbpn-dhy-puoeoqj acetaminophen or ibuprofen if needed for pain. [...] 03/23/2025 Lumbar radiculopathy (ICD-10 - M54.16) 09/07/2024 Pyelonephritis (ICD-10 - N12) 09/07/2024 Kidney stones (ICD-10 - N20.0) 01/05/2025 VUR (vesicoureteric reflux) (ICD-10 - N13.70) 03/16/2025 Urinary tract infection, site not specified (ICD-10 - N39.0) 03/28/2025 Low back pain at multiple sites (ICD-10 - M54.50) 12/01/2024 Dysuria (ICD-10 - R30.0) 07/28/2024 Muscle spasm (ICD-10 - M62.838) 01/24/2025 UTI (urinary tract infection), uncomplicated (ICD-10 - N39.0) 11/24/2024 Kidney stones (ICD-10 - N20.0) 06/29/2024 [...] area. Take NSAIDs for pain as needed 09/30/2024 Other sending over fo r icv fluids 11/24/2024 Other Atrophic left kidney. Needs renogram to check function of left kidney Suspect reflux. Will check V[facility]G. Litholink for kidney stones. 01/24/2025 Other Left stent in p lace [...] HIP RT 2 3V W PELVIS 07/28/2024 Next Appt Details Provider Name:Kendrick Das, 10:00:00 AM, [address] [facility] [place], [address], Provider Name:Breonna Ladonna Sanchez , 09/21/2025 01:50:00 PM, [address] [facility], [place], [address], Insurance Providers Payer Name Payer Address Payer Phone Subscriber Number Group Number Insured Name Patient Relationship to Insured Coverage Start Date Coverage End Date [employer] [address] [place] [phone] [id number] Wesly Barriga Spouse - patient is the [...] G56.22 Depression Anxiety Surgical History Surgery Date(Month/Year) Cystoscopy, Left retrograde pyelogram, u reteral stent- Dr. Souza's Right Renal Calculus 05/24/2020 Cholecystectomy Cystoscopy, Holmium Laser Li thotripsy, Lt stent replacement, Rt stent placement- Dr Desai 01/27/25 ureteral stent placement on Left side 01/22/25 Right laser lithotripsy - Dr Villa 12/08 21 urethral dilation Hysterectomy, Bilat Salpingectomy- Bernie 05/06/23 Hospitalization History Reason Date(Month/Year) Multiple for kidney stones and stents
--- OUTSIDE RECORDS SUMMARY | 2025-04-05 20:50 | XMS_ITS | Encounter Summary ---
Author Organization [facility] Address [address] [place] [address] Care Team Providers Care Mud Analysis Supervisor Name Role Phone Ignacio Das MD Primary Care Provider [phone] Encounter Details Date Type Department Care Team (Late Contact Info) Description 12/29/2023 Clinisync Result Encounter [facility] External Department Unsolicited Jefferson Gibbs, DO [address] [place] [address] Social History Tobacco Use Types Packs/Day Years [...] Department Care Team (Late Contact Info) Description 04/10/2025 9:50 AM EDT Office Visit [facility] [address] [place] [address] Alejandra Leiva MD [address] [place] [address] 04/09/2026 9:00 AM EDT Office Visit [facility] [address] [place] [address] Jefferson Gibbs, DO [address] [place] [address] documented as of this encounter Procedures Procedure Name Priority Date/Time Associated Diagnosis Comments MM POST BIOPSY LT 12/29/2023 8:5 7 AM EDT documented in this encounter Results * MM POST BIOPSY LT (12/29/2023 8:57 AM EDT) Anatomical Region Laterality Modality Other 12/29/2023 8:57 AM EDT Narrative 12/29/2023 8:57 [place] [address] Mammography Report Signed Patient: DIANA BEAVER MR#: [id number] : 1990 Acct:[id number] Age/Sex: 33 / F ADM Date: 12/29/23 Loc: US Attending Dr: Jefferson Gibbs D.O. Ordering Physician: Jefferson Gibbs D.O. Results: Date of Service: 12/29/23 Follow Up: Procedure(s): MM post biopsy LT Accession Number(s): [id number] cc: Jefferson Gibbs D.O.; Ignacio Das M.D. Patient Name: DIANA BEAVER MR#: [id number] : 1990 Exam Date: 12/29/2023 Ordering Doctor: [...] Signed By: 12/29/23 0857 DD/ 0857 TD/TT: Mig Tig Welder: Procedure Note Radiology, Radiologist, - 12/29/2023 The [place] [id number] Mammography Report Signed Patient: DIANA BEAVER LMR#: [id number] : 1990Acct:[id number] Age/Sex: 33 / FADM Date: 12/29/23 Loc: US Attending Dr: Jefferson Gibbs D.O. Ordering Physician: Jefferson Gibbs D.O.Results: Date of Service: 12/29/23Follow Up: Procedure(s): MM post biopsy LT Accession Number(s): [id number] cc: Jefferson Gibbs D.O.; Ignacio Das M.D. Patient Name: DIANA BEAVER MR#: [id number] : 1990 Exam Date: 12/29/2023 Ordering Doctor: [...] M.D. Signed By:12/29/23 0857 DD/ 0857 TD/TT: Mig Tig Welder: Jefferson Gibbs DO [facility] Final Result documented in this encounter Visit Diagnoses Not on filedocumented in this encounter Care Teams Mud Analysis Supervisor Relationship Specialty Start Date End Date Ignacio Das MD [address] [place] [address] PCP - General Family Medicine 04/13/23 documented as of this encounter
--- OUTSIDE RECORDS SUMMARY | 2025-04-05 20:50 | XMS_ITS | Encounter Summary ---
Author Organization [facility] Address [address] [place] [address] Care Team Providers Care Clinical Rehab Specialist Name Role Phone Ignacio Das MD Primary Care Provider [phone] Encounter Details Date Type Department Care Team (Late Contact Info) Description 12/29/2023 Clinisync Result Encounter [facility] External Department Unsolicited Jefferson Gibbs, DO [address] [place] [address] Social History Tobacco Use Types Packs/Day Years [...] [address] [place] [address] Alejandra Leiva MD [address] [place] [address] 04/09/2026 9:00 AM EDT Office Visit [facility] [address] [place] [address] Jefferson Gibbs, DO [address] [place] [address] documented as of this encounter Procedures Procedure Name Priority Date/Time Associated Diagnosis Comments US GUIDED BREAST BIOPSY LT 12/29/2023 8:24 AM EDT documented in this encounter Results * US GUIDED BREAST BIOPSY LT (12/29/2023 8:24 AM EDT) Anatomical Region Laterality Modality Radiographic Megan ging 12/29/2023 8:24 AM EDT Narrative 12/29/2023 8:27 [place] [address] Ultrasound Report Signed Patient: DIANA BEAVER MR#: [id number] : 1990 Acct:[id number] Age/Sex: 33 / F ADM Date: 12/29/23 Loc: US Attending Dr: Jefferson Gibbs D.O. Ordering Physician: Jefferson Gibbs D.O. Date of Service: 12/29/23 Procedure(s): US breast vac bx w/ clip LT Accession Number(s): [id number] cc: Jefferson Gibbs D.O.; Ignacio Das M.D. [place] [id number] Patient Name: DIANA BEAVER MRN: [id number] date: 1990 Sex: F Assigned Patient Location: Current Patient Location: Accession/Order Number: [id number] Exam Date: 12/29/2023 07:20 Report Date: 12/29/2023 [...] M.D. Signed By: 12/29/23826 DD/ 3 TD/TT: Hoop Maker Helper Machine: Procedure Note Radiology, Radiologist, MD - 12/29/2023 [place] [address] Ultrasound Report Signed Patient: DIANA BEAVER LMR#: [id number] : 1990Acct:[id number] Age/Sex: 33 / FADM Date: 12/29/23 Loc: US Attending Dr: Jefferson Gibbs D.O. Ordering Physician: Jefferson Gibbs D.O. Date of Service: 12/29/23 Procedure(s): US breast vac bx w/ clip LT Accession Number(s): [id number] cc: Jefferson Gibbs D.O.; Ignacio Das M.D. [facility] [place] [id number] Patient Name: DIANA BEAVER MRN: [id number] date: 1990 Sex: F Assigned Patient Location: US Current Patient Location: US Accession/Order Number: [id number] Exam Date: 12/29/2023 07:20 Report Date: 12/29/2023 [...] Graff M.D. Signed By:12/29/23826 DD/ 3 TD/TT: Hoop Maker Helper Machine: us Jefferson Bernie DO IMG XR PROCEDURES Final Result documented in this encounter Visit Diagnoses Not on filedocumented in this encounter Care Teams Clinical Rehab Specialist Relationship Specialty Start Date End Date Ignacio Das MD [address] [place] [address] PCP - General Family Medicine 04/13/23 documented as of this encounter
--- OUTSIDE RECORDS SUMMARY | 2025-04-05 20:50 | XMS_ITS | Encounter Summary ---
Author Organization [facility] Address [address] [facility] [place] [address] Care Team Providers Care Assembler Knife Name Role Phone Ignacio Das MD Primary Care Provider [phone] Encounter Details Date Type Department Care Team (Latest Contact Info) Description 03/29/2025 Travel Social History Tobacco Use Types Packs/Day Years [...] Office Visit [facility] [address] [facility] [address] [facility] [address] [place] [address] Alejandra Leiva MD [address] [place] [address] 04/09/2026 9:00 AM EDT Office Visit [facility] [address] [place] [address] Jefferson Gibbs DO [address] [address] documented as of this encounter Visit Diagnoses Not on filedocumented in this encounter Care Teams Assembler Knife Relationship Specialty Start Date End Date Ignacio Das MD [address] [facility] [address] PCP - General Family Medicine 04/13/23 documented as of this encounter
--- OUTSIDE RECORDS SUMMARY | 2025-04-05 20:50 | XMS_ITS | Clinical Summary ---
Author Organization [facility] Address [address] [place] [address] Care Team Providers Care Diamond Sizer And Grader Name Role Phone Ignacio Das MD Unavailable [phone] Social History Tobacco Use Types Packs/Day Years Used Date Smoking Tobacco: Never Assessed Area Deprivation Index Answer Date Corky rded National Score (1-100), lower number is lower ri sk 70 11/01/2022 State Score (1-10), lower number is lower risk N ot on file 11/01/2022 Data from: https://www.neighborhoodatlas.medicine.[facility].edu/. Last address used for calculation [address] [place] [address] 11/01/2022 Comments Unknown Sex and Gender Information [...] B Vaccine Completed 06/19/2004, 03/27/2004, 12/18/2003 Insurance [facility] MEDICAID Care Teams Diamond Sizer And Grader Relationship Specialty Start Date End Date Ignacio Das MD Referring Family Medicine 09/01/22
--- OUTSIDE RECORDS SUMMARY | 2025-04-05 20:50 | XMS_ITS | Encounter Summary ---
Author Organization [facility] Address [address] [facility] [place] [address] Care Team Providers Care Healthcare Risk Control Consultant Name Role Phone Ignacio Das MD Primary Care Provider [phone] Encounter Details Date Type Department Care Team (Latest Contact Info) Description 04/03/2025 Travel Social History Tobacco Use Types Packs/Day [...] Office Visit [facility] [address] [facility] [address] [facility] [address] [place] [address] Alejandra Leiva MD [address] [facility] [address] [place] [address] 04/09/2026 9:00 AM EDT Office Visit [facility] [address] [place] [address] Jefferson Gibbs DO [address] [place] [address] documented as of this encounter Visit Diagnoses Not on filedocumented in this encounter Care Teams Healthcare Risk Control Consultant Relationship Specialty Start Date End Date Ignacio Das MD [address] [facility] [place] [address] PCP - General Family Medicine 04/13/23 documented as of this encounter
--- OUTSIDE RECORDS SUMMARY | 2025-04-05 20:50 | XMS_ITS | Encounter Summary ---
Author Organization [facility] Address [address] [place] [address] Care Team Providers Care Geoscience Professor Name Role Phone Ignacio Das MD Primary Care Provider [phone] Encounter Details Date Type Department Care Team (Late Contact Info) Description 04/05/2025 Bamboo flowsheet [facility] [address] [place] [address] Jefferson Gibbs, DO [address] [place], [facility] Social History Tobacco Use Types Packs/Day Years [...] [address] [place] [address] Alejandra Leiva MD [address] [place], [place] [address] 04/09/2026 9:00 AM EDT Office Visit [facility] OB [address] [place] [address] Jefferson Gibbs, DO [address] [place], [facility] documented as of this encounter Visit Diagnoses Not on filedocumented in this encounter Care Teams Geoscience Professor Relationship Specialty Start Date End Date Ignacio Das MD [address] [place] [address] PCP - General Family Medicine 04/13/23 documented as of this encounter
--- OUTSIDE RECORDS SUMMARY | 2025-04-05 20:50 | XMS_ITS | Encounter Summary ---
Author Organization [facility] Address [address] [place] [address] Care Team Providers Care Public Health Educator Name Role Phone Ignacio Das MD Primary Care Provider [phone] Encounter Details Date Type Department Care Team ([facility] Contact Info) Description 05/27/2023 Abstract [facility] [address] [place] [phone] Jefferson Gibbs [address] [place], [place] [phone] Social History Tobacco Use Types Packs/Day Years [...] Upcoming Encounters Date Type Department Care Team ([facility] Contact Info) Description 04/10/2025 9:50 AM EDT Office Visit [facility] [address] [place] [phone] Alejandra Leiva MD [address] [place] [address] 04/09/2026 9:00 AM EDT Office Visit [facility] OB [address] [place] [address] Jefferson Gibbs, DO [address] [facility] [address] documented as of this encounter Visit Diagnoses Not on filedocumented in this encounter Care Teams Public Health Educator Relationship Specialty Start Date End Date Ignacio Das MD [address] [facility] [place] [place] [address] PCP - General Family Medicine 04/13/23 documented as of this encounter
--- OUTSIDE RECORDS SUMMARY | 2025-04-05 20:50 | XMS_ITS | Encounter Summary ---
Author Organization [facility] Address [address] [place] [address] Care Team Providers Care Campus Ambassador Name Role Phone Ignacio Das MD Primary Care Provider [phone] Encounter Details Date Type Department Care Team (Late Contact Info) Description 12/23/2023 Clinisync Result Encounter [facility] External Department Unsolicited Jefferson Gibbs, DO [address] [place] [address] Social History Tobacco Use Types Packs/Day Years [...] [address] [place] [address] Alejandra Leiva MD [address] [place] [address] 04/09/2026 9:00 AM EDT Office Visit [facility] [address] [place] [address] Jefferson Gibbs, DO [address] [place] [address] documented as of this encounter Procedures Procedure Name Priority Date/Time Associated Diagnosis Comments US BREAST LT LIMITED 12/23/2023 1:47 PM EST documented in this encounter Results * US BREAST LT LIMITED (12/23/2023 1:47 PM EST) Anatomical Region Laterality Modality Other 12/23/2023 1:47 PM EST Narrative 12/23/2023 1:48 [place] [address] Ultrasound Report Signed Patient: DIANA BEAVER MR#: [id number] : 1990 Acct:[id number] Age/Sex: 33 / F ADM Date: 12/23/23 Loc: MAMMO Attending Dr: Jefferson Gibbs D.O. Ordering Physician: Jefferson Gibbs D.O. Date of Service: 12/23/23 Procedure(s): US breast LT limited Accession Number(s): [id number] cc: Jefferson Gibbs D.O.; Ignacio Das M.D. Patient Name: DIANA BEAVER MR#: [id number] : 1990 Exam Date: 12/23/2023 Ordering Doctor: [...] Treatments None Family Cancers None LOCATION: [facility] BREAST COMPOSITION: Extremely dense, which lowers [...] Signed By: 12/23/23 1348 DD/ 1347 TD/TT: Ham Marker: Procedure Note Radiology, Radiologist, - 12/23/2023 [place] [address] Ultrasound Report Signed Patient: DIANA BEAVER LMR#: [id number] : 1990Acct:[id number] Age/Sex: 33 / FADM Date: 12/23/23 Loc: MAMMO Attending Dr: Jefferson Gibbs D.O. Ordering Physician: Jefferson Gibbs D.O. Date of Service: 12/23/23 Procedure(s): US breast LT limited Accession Number(s): [id number] cc: Jefferson Gibbs D.O.; Ignacio Das M.D. Patient Name: DIANA BEAVER MR#: [id number] : 1990 Exam Date: 12/23/2023 Ordering Doctor: [...] Treatments None Family Cancers None LOCATION: [facility] BREAST COMPOSITION: Extremely dense, which lowers [...] M.D. Signed By:12/23/23 1348 DD/ 1347 TD/TT: Ham Marker: [facility] DO [facility] Final Result documented in this encounter Visit Diagnoses Not on filedocumented in this encounter Care Teams Campus Ambassador Relationship Specialty Start Date End Date Ignacio Das MD [address] [place] [address] PCP - General Family Medicine 04/13/23 documented as of this encounter
--- OUTSIDE RECORDS SUMMARY | 2025-04-05 20:50 | XMS_ITS | Encounter Summary ---
Author Organization [facility] Address [address] [place] [address] Care Team Providers Care Beef Pusher Name Role Phone Ignacio Das MD Primary Care Provider [phone] Encounter Details Date Type Department Care Team (Late Contact Info) Description 12/23/2023 Clinisync Result Encounter [facility] External Department Unsolicited Tamiko Chacon PA [address] [facility] [address] [place], [facility] Social History Tobacco Use Types Packs/Day [...] [address] [place] [phone] Alejandra Leiva MD [address] [place] [address] 04/09/2026 9:00 AM EDT Office Visit [facility] [address] [facility] [place] [address] Jefferson Gibbs DO [address] [place] [address] documented as of this encounter Procedures Procedure Name Priority Date/Time Associated Diagnosis Comments MM TOMOSYNTHESIS DIAGNOSTIC BI 12/23/2023 1:47 PM EST documented in this encounter Results * MM TOMOSYNTHESIS DIAGNOSTIC BI (12/23/2023 1:47 PM EST) Anatomical Region Laterality Modality Other 12/23/2023 1:47 PM EST Narrative 12/23/2023 1:48 [place] [address] Mammography Report Signed Patient: DIANA BEAVER MR#: [id number] : 1990 Acct:[id number] Age/Sex: 33 / F ADM Date: 12/23/23 Loc: MAMMO Attending Dr: Jefferson Gibbs D.O. Ordering Physician: Tamiko Chacon Results: Date of Service: 12/23/23 Follow Up: Procedure(s): MM tomosynthesis diagnostic BI Accession Number(s): [id number] cc: Tamiko Chacon; Ignacio Das M.D. Patient Name: DIANA BEAVER MR#: [id number] : 1990 Exam Date: 12/23/2023 Ordering Doctor: [...] Treatments None Family Cancers None LOCATION: [facility] BREAST COMPOSITION: Extremely dense, which [...] Signed By: 12/23/23 1348 DD/ 1347 TD/TT: Cigar Brander: Procedure Note Radiology, Radiologist, - 12/23/2023 [place] [address] Mammography Report Signed Patient: DIANA BEAVER LMR#: [id number] : 1990Acct:[id number] Age/Sex: 33 / FADM Date: 12/23/23 Loc: MAMMO Attending Dr: Jefferson Gibbs D.O. Ordering Physician: Tamiko Najeraults: Date of Service: 12/23/23Follow Up: Procedure(s): MM tomosynthesis diagnostic BI Accession Number(s): [id number] cc: Tamiko Chacon; Ignacio Das M.D. Patient Name: DIANA BEAVER MR#: [id number] : 1990 Exam Date: 12/23/2023 Ordering Doctor: [...] Treatments None Family Cancers None LOCATION: [facility] BREAST COMPOSITION: Extremely dense, which [...] M.D. Signed By:12/23/23 1348 DD/ 1347 TD/TT: Cigar Brander: Tamiko MADDOX [facility] Final Result documented in this encounter Visit Diagnoses Not on filedocumented in this encounter Care Teams Beef Pusher Relationship Specialty Start Date End Date Ignacio Das MD [address] [place] [address] PCP - General Family Medicine 04/13/23 documented as of this encounter
--- OUTSIDE RECORDS SUMMARY | 2025-04-05 20:51 | XMS_ITS | Clinical Summary ---
Author Organization [employer] tem Address [id number] [address] [place] [address] Care Team Providers Care Resin Filterer Name Role Phone Ignacio Das MD Primary Care Provider [phone] Allergies No known active allergies Medications prenat.vits,rodger,min [...] Narrative COPATH - 02/03/2018 12:11 PM EDT [facility] [address] [place] [address] Gynecologic Cytology Consultation Patient Name: DIANA ENAMORADO : 1990 (Age: 27) Gender: F Taken: 01/22/2018 Reported: 02/03/2018 Physician(s): Yuniel Rosenberg MD ([phone]) Copy To: Med. Rec. #: [id number] Acct: # [id number] Final Cytologic Interpretation Cervical (with or without endocervical) ThinPrep: Satisfactory for evaluation. A transformation zone component is present. NEGATIVE FOR INTRAEPITHELIAL LESION OR MALIGNANCY. Shift in greg suggestive of bacterial vaginosis. jja/02/03/2018 Electronically Signed Out By CARON Galeano (ASCP) Date of Last Menstrual Period: 12/25/2017 Other Clinical Conditions: Screening/Routine z01.419 Manager Animal exam wo/abn findings Source of Specimen Cervical (with or without endocervical) ThinPrep Thin Prep Pap (DEDICATED INTERMODAL TRUCK DRIVER) Fee Code(s): G0145 The Pap test is a screening test with an inherent, but low, probability of error. The Pap test is primarily effective for the diagnosis and prevention of squamous cell carcinoma. Regular screening is critical for prevention. ThinPrep liquid-based slides, which meet the Concrete Pavement Installer criteria for automated screening, have been screened by the ThinPrep Imaging System (as of 07/05/07) along with an additional manual rescreening by a ebd special education teacher and, if indicated, by a pathologist.Yuniel Rosenberg, [...] 9:20 AM 08/14/2018 4:36 PM Care Teams Resin Filterer Relationship Specialty Start Date End Date Ignacio Das MD PCP - General Family Medicine 09/17/20
--- OUTSIDE RECORDS SUMMARY | 2025-04-05 20:51 | XMS_ITS | Encounter Summary ---
Author Organization [facility] Address [address] [place] [address] Care Team Providers Care Well Control Instructor Name Role Phone Ignacio Das MD Primary Care Provider [phone] Encounter Details Date Type Department Care Team (Late Contact Info) Description 05/15/2023 Abstract [facility] [address] [place] [phone] Tamiko Chacon PA [address] [facility] [address] [place], [facility] Social History Tobacco Use Types Packs/Day [...] [address] [place] [phone] Alejandra Leiva MD [address] [place] [address] 04/09/2026 9:00 AM EDT Office Visit [facility] [address] [place] [address] Jefferson Gibbs DO [address] [facility] [address] [place], [place] [phone] documented as of this encounter Visit Diagnoses Not on filedocumented in this encounter Care Teams Well Control Instructor Relationship Specialty Start Date End Date Ignacio Das MD [address] [facility] [place] [address] PCP - General Family Medicine 04/13/23 documented as of this encounter
--- OUTSIDE RECORDS SUMMARY | 2025-04-05 20:51 | XMS_ITS | Encounter Summary ---
Author Organization [facility] tem Address [id number] [address] [place] [address] Care Team Providers Care Outside Salesman Name Role Phone Ignacio Das MD Primary Care Provider [phone] Encounter Details Date Type Department Care Team (Late st Contact Info) Description 07/26/2020 Orders Only Maternal- Medicine at [facility] [address] [place] [address] External, Scanning Provider Social History Tobacco Use [...] on filedocumented in this encounter Care Teams Outside Salesman Relationship Specialty Start Date End Date Ignacio Das MD PCP - General Family Medicine 09/17/20 documented as of this encounter
--- OUTSIDE RECORDS SUMMARY | 2025-04-05 20:51 | XMS_ITS | Encounter Summary ---
Author Organization [facility] Address [address] [place] [address] Care Team Providers Care Telex Operator Name Role Phone Ignacio Das MD Primary Care Provider [phone] Encounter Details Date Type Department Care Team ([facility] Contact Info) Description 04/30/2023 Abstract [facility] OB [address] [facility] [place] [address] Jefferosn Gibbs [address] [facility] [place] [address] Social History Tobacco Use Types Packs/Day Years [...] Upcoming Encounters Date Type Department Care Team ([facility] Contact Info) Description 04/10/2025 9:50 AM EDT Office Visit [facility] [address] [place] [phone] Alejandra Leiva MD [address] [place], [place] [phone] 04/09/2026 9:00 AM EDT Office Visit [facility] OB [address] [facility] [place] [address] Jefferson Gibbs, [address] [place] [address] documented as of this encounter Visit Diagnoses Not on filedocumented in this encounter Care Teams Telex Operator Relationship Specialty Start Date End Date Ignacio Das MD [address] [facility] [place] [address] PCP - General Family Medicine 04/13/23 documented as of this encounter
--- OUTSIDE RECORDS SUMMARY | 2025-04-05 20:51 | XMS_ITS | Encounter Summary ---
Author Organization [facility] Address [address] [place] [address] Care Team Providers Care Key Operator Name Role Phone Ignacio Das MD Primary Care Provider [phone] Encounter Details Date Type Department Care Team ([facility] Contact Info) Description 04/30/2023 Abstract [facility] OB [address] [facility] [place] [address] Jefferson Gibbs [address] [facility] [place] [address] Social History Tobacco Use Types Packs/Day [...] Upcoming Encounters Date Type Department Care Team ([facility] Contact Info) Description 04/10/2025 9:50 AM EDT Office Visit [facility] [address] [place] [phone] Alejandra Leiva MD [address] [place], [place] [phone] 04/09/2026 9:00 AM EDT Office Visit [facility] OB [address] [facility] [place] [address] Jefferson Gibbs, [address] [place] [address] documented as of this encounter Visit Diagnoses Not on filedocumented in this encounter Care Teams Key Operator Relationship Specialty Start Date End Date Ignacio Das MD [address] [facility] [place] [address] PCP - General Family Medicine 04/13/23 documented as of this encounter
--- OUTSIDE RECORDS SUMMARY | 2025-04-05 20:51 | XMS_ITS | Patient Health Record ---
Author Organization [facility] Address [address] [place] [address] Care Team Providers Care Health Policy Manager Name Role Phone Iván Puckett Primary Care Provider Dulce Maria Matthews [phone] Reason For Referral No Information Plan Of Treatment No Information Insurance Providers Payer Name Payer Address Payer Phone Subscriber Number Group Number Insured Name Patient Relationship to Insured Coverage Start Date Coverage End Date Dental [place] [employer] [address] [address] [place] [address] [phone] [id number] CORI BARRIGA Self - patient is the insured 3 [employer] [facility] [place] [address] [place] [address] [id number] CORI BARRIGA Self - patient is the insured 3
--- OUTSIDE RECORDS SUMMARY | 2025-04-05 20:51 | XMS_ITS | Clinical Summary ---
Author Organization [facility] Address [address] [place] [address] Care Team Providers Care Handling Tech Name Role Phone Ignacio Das MD Primary Care Provider [phone] Allergies No known active allergies Medications tamsulosin [...] Event [facility] OR [address] [place] [address] Corey Crowder MD Newman, Jessica, MD 01/27/2025 2:32 PM EDT - 01/27/2025 3:21 PM EDT Surgery [facility] OR [address] [place] [address] Azar Espino MD CYSTOSCOPY, RIGHT RETROGRADE PYELOGRAM, BILATERAL URETEROSCOPY WITH LEFT HOLMIUM LASER LITHOTRIPSY, RIGHT URETERAL STENT PLACEMENT, LEFT URETERAL STENT EXCHANGE 01/26/2025 5:25 PM EDT - 01/29/2025 9:42 AM EDT Hospital Encounter [facility] Renal//Med Surg [address] [place] [address] Luis Felipe Delacruz MD Mashaleh, Mohammad I, Bilateral ureteral calculi; Acute postoperative pain Discharge Disposition: Home or Self Care 01/26/2025 Travel 01/22/2025 9:28 AM EDT Anesthesia Event [facility] OR [address] [place] [address] Toño Carr MD Rissman, Stacey, EMPLOYMENT DIRECTOR - PRECIPITATOR SUPERVISOR 01/22/2025 8:50 AM EDT - 01/22/2025 9:21 AM EDT Surgery [facility] OR [address] [place] [address] Sanya Trevizo MD CYSTOSCOPY URETERAL STENT INSERTION 01/22/2025 Travel 01/21/2025 11:43 PM EDT - 01/22/2025 3:45 PM EDT Hospital Encounter [facility] 3C MED SURG [address] [place] [address] Luis Felipe Delacruz MD Steve, Nicholas, Nathen Phillips I, Acute postoperative pain (Primary Dx); Renal calculus, left Discharge Disposition: Home or Self Care 01/17/2025 7:48 AM EDT - 01/19/2025 11:59 PM EDT Hospital Encounter [facility] Radiology [address] [place] [address] Adonis Sanchez MD VUR (vesicoureteric reflux) Discharge Disposition: Home or Self Care 01/17/2025 7:47 AM EDT - 01/19/2025 11:59 PM EDT Hospital Encounter [facility] Special Procedures [address] [place] [address] Discharge Disposition: Home or Self Care 01/09/2025 Transcribe Orders [facility] [address] [place] [phone] Adonis Sanchez MD VUR (vesicoureteric reflux) (Primary Dx) 01/05/2025 1:54 PM EDT - 01/07/2025 11:59 PM EDT Hospital Encounter [facility] Nuclear Medicine [address] [place] [address] Pyelonephritis; VUR (vesicoureteric reflux) Discharge Disposition: Home or Self Care from Last 3 Months Social History Tobacco Use Types Packs/Day Years Used Date Smoking Tobacco: Never Smokeless Tobacco: Never Tobacco Cessation:Counseling Given: No Alcohol Use Standard Drinks/Week Comments Not Currently 0 (1 standard drink = 0.6 oz pur e alcohol) [facility] Utilities Answer Date Recorded In the past 12 months has th e [employer], gas, oil, or water [employer] threatened to shut off services in your [...] any time in the past 12 m [facility], were you homeless or living in a jail (including now)? No 01/26/2025 Food Insecurity Answer [...] this topic Medical Devices Implanted Type Area Third Rail Installer Device Identifier Shelf Expiration Date Model / Serial / Lot Stent Uret 6fr L26cm Percflx Hydr+ Tapr Tip Grad - [id number] Implanted:Qty : 1 on 01/22/2025 by Sanya Trevizo MD at [facility] Left: Ureter [employer] [id number] 09/06/2027 [id number] 30 / / [id number] Stent Uret 6fr L26cm Percflx Hydr+ Dbl Pgtl Thrd 2 - [id number] Implanted:Qty : 1 on 01/27/2025 by Azar Espino MD at [facility] Left: Ureter [employer] [id number] 11/24/2027 [id number] 30 / / [id number] Stent Uret 6fr L26cm Percflx Hydr+ Dbl Pgtl Thrd 2 - [id number] Implanted:Qty : 1 on 01/27/2025 by Azar Espino MD at [facility] Right: Ureter [employer] [id number] 11/24/2027 [id number] 30 / / [id number] Procedures Procedure Name Priority Date/Time Associated Diagnosis [...] resultswithin the time period is included. Narrative [facility] - 01/27/2025 4:02 PM EDT Radiology exam is complete. No Radiologist dictation. Please follow up with ordering provider. us Azar Espino MD IMG FLUOROSCOPY ORDERABLES Fin al Result Performing Organization Address City/[facility]/ZIP Co de Phone Number [facility] * Culture, Urine (01/27/2025 3:44 PM EDT) Only the most recent of3 resultswithin the time period is included. Specimen Description .BLADDER URINE FROM CYSTOSCOPY 01/27/2025 3:44 PM EDT [facility] Special Requests Site: Urine 01/27/2025 3:44 PM EDT [facility] Culture NO GROWTH 01/27/2025 3:44 PM EDT [facility] Urine URINE SPECIMEN OBTAINED FROM URINARY BLADDER BY CYSTOSCOPY / Unknown 01/27/2025 3:29 PM EDT Comment:Pre-op diagnosis: Bilateral ureteral calculi [N20.1] Azar Espino MD MICROBIOLOGY - GENERAL ORDERAB LES Final Result [facility] [address] [place] [address], [facility] [phone] * Culture, Blood 1 (01/27/2025 2:30 PM EDT) Only the most recent of2 resultswithin the time period is included. Specimen Description .BLOOD 01/27/2025 2:30 PM EDT [facility] Special Requests 01/27/2025 2:30 PM EDT [facility] Culture NO GROWTH 5 DAYS 01/27/2025 2:30 PM EDT [facility] BLOOD SPECIMEN / Unknown 01/27/2025 2:30 PM EDT 01/27/2025 2:42 PM EDT us Nathen Hemphill I, DO MICROBIOLOGY - GENERAL O RDERABLES Final Result [facility] [address] [place] [address], [facility] [phone] * (ABNORMAL) CBC auto differential (01/27/2025 7:28 AM EDT) Only the most recent of2 resultswithin the time period is included. Pathologist [facility] WBC 3.9 3.5 - 11.3 k/uL 01/27/2025 7:28 AM EDT [facility] RBC 3.95 3.95 - 5.11 m/uL 01/27/2025 7:28 AM EDT [facility] Hemoglobin 10.7(L) 11.9 - 15.1 g/dL 01/27/2025 7:28 AM EDT [facility] Hematocrit 34.2(L) 36.3 - 47.1 % 01/27/2025 7:28 AM EDT [facility] MCV 86.6 82.6 - 102.9 fL 01/27/2025 7:28 AM EDT [facility] MCH 27.1 25.2 - 33.5 pg 01/27/2025 7:28 AM EDT [facility] MCHC 31.3 28.4 - 34.8 g/dL 01/27/2025 7:28 AM EDT [facility] RDW 12.6 11.8 - 14.4 % 01/27/2025 7:28 AM EDT [facility] Platelets 238 138 - 453 k/uL 01/27/2025 7:28 AM EDT [facility] MPV 9.1 8.1 - 13.5 fL 01/27/2025 7:28 AM EDT [facility] NRBC Automated 0.0 0.0 per 100 WBC 01/27/2025 7:28 AM EDT [facility] Neutrophils % 31(L) 36 - 65 % 01/27/2025 7:28 AM EDT [facility] Lymphocytes % 55(H) 24 - 43 % 01/27/2025 7:28 AM EDT [facility] Monocytes % 9 3 - 12 % 01/27/2025 7:28 AM EDT [facility] Eosinophils % 4 1 - 4 % 01/27/2025 7:28 AM EDT [facility] Basophils % 1 0 - 2 % 01/27/2025 7:28 AM EDT [facility] Immature Granulocytes % 0 0 % 01/27/2025 7:28 AM EDT [facility] Neutrophils Absolute 1.21(L) 1.50 - 8.10 k/uL 01/27/2025 7:28 AM EDT [facility] Lymphocytes Absolute 2.11 1.10 - 3.70 k/uL 01/27/2025 7:28 AM EDT [facility] Monocytes Absolute 0.35 0.10 - 1.20 k/uL 01/27/2025 7:28 AM EDT [facility] Eosinophils Absolute 0.14 0.00 - 0.44 k/uL 01/27/2025 7:28 AM EDT [facility] Basophils Absolute 0.04 0.00 - 0.20 k/uL 01/27/2025 7:28 AM EDT [facility] Immature Granulocytes Absolute <0.03 0.00 - 0.30 k/uL 01/27/2025 7:28 AM EDT [facility] Blood BLOOD SPECIMEN / Unknown 01/27/2025 7:28 AM EDT 01/27/2025 7:59 AM EDT us Kyung Miester EMPLOYMENT DIRECTOR - DIRECTOR OF CREATIVE SERVICES HEMATOLOGY ORDERABLES Fi nal Result [facility] [address] [place] [address], [facility] [phone] * (ABNORMAL) Basic metabolic panel (01/27/2025 7:28 AM EDT) Only the most recent of3 resultswithin the time period is included. Pathologist [facility] Sodium 139 136 - 145 mmol/L 01/27/2025 7:28 AM EDT [facility] Potassium 3.9 3.7 - 5.3 mmol/L 01/27/2025 7:28 AM EDT [facility] Chloride 108(H) 98 - 107 mmol/L 01/27/2025 7:28 AM EDT [facility] CO2 22 20 - 31 mmol/L 01/27/2025 7:28 AM EDT [facility] Anion Gap 9 9 - 16 mmol/L 01/27/2025 7:28 AM EDT [facility] Glucose 85 74 - 99 mg/dL 01/27/2025 7:28 AM EDT [facility] BUN 11 6 - 20 mg/dL 01/27/2025 7:28 AM EDT [facility] Creatinine 0.7 0.6 - 0.9 mg/dL 01/27/2025 7:28 AM EDT [facility] Est, Glom Filt Rate >90 >60 mL/min/1. 73m2 01/27/2025 7:28 AM EDT [facility] Comment: These results are not intended for [...] - 10.4 mg/dL 01/27/2025 7:28 AM EDT [facility] BLOOD SPECIMEN / Unknown 01/27/2025 7:28 AM EDT 01/27/2025 7:59 AM EDT us Kyung Barkley EMPLOYMENT DIRECTOR - DIRECTOR OF CREATIVE SERVICES CHEMISTRY ORDERABLES Fin al Result [facility] [address] [place] [address], [facility] [phone] * CBC (01/26/2025 6:51 PM EDT) WBC 5.9 3.5 - 11.3 k/uL 01/26/2025 6:51 PM EDT [facility] RBC 4.30 3.95 - 5.11 m/uL 01/26/2025 6:51 PM EDT [facility] Hemoglobin 12.0 11.9 - 15.1 g/dL 01/26/2025 6:51 PM EDT [facility] Hematocrit 38.1 36.3 - 47.1 % 01/26/2025 6:51 PM EDT [facility] MCV 88.6 82.6 - 102.9 fL 01/26/2025 6:51 PM EDT [facility] MCH 27.9 25.2 - 33.5 pg 01/26/2025 6:51 PM EDT [facility] MCHC 31.5 28.4 - 34.8 g/dL 01/26/2025 6:51 PM EDT [facility] RDW 12.7 11.8 - 14.4 % 01/26/2025 6:51 PM EDT [facility] Platelets 261 138 - 453 k/uL 01/26/2025 6:51 PM EDT [facility] MPV 9.0 8.1 - 13.5 fL 01/26/2025 6:51 PM EDT [facility] NRBC Automated 0.0 0.0 per 100 WBC 01/26/2025 6:51 PM EDT [facility] Blood BLOOD SPECIMEN / Unknown 01/26/2025 6:51 PM EDT 01/26/2025 7:02 PM EDT us Andrzej Desai MD HEMATOLOGY ORDERABLES Final Res ult [facility] [address] [place] [address] * (ABNORMAL) Urinalysis with Reflex to Culture (01/26/2025 5:53 PM EDT) Color, UA Harney(A) Yellow 01/26/2025 5:53 PM EDT [facility] Comment:INTERPRET WITH CAUTI ON DUE TO INTENSE COLOR OF URINE. Turbidity UA Cloudy(A) Clear 01/26/2025 5:53 PM EDT [facility] Glucose, Ur NEGATIVE NEGATIVE mg/dL 01/26/2025 5:53 PM EDT [facility] Bilirubin, Urine NEGATIVE NEGATIVE 01/26/2025 5:53 PM EDT [facility] Ketones, Urine NEGATIVE NEGATIVE mg/dL 01/26/2025 5:53 PM EDT [facility] Specific Randolph, UA 1.016 1.005 - 1.030 01/26/2025 5:53 PM EDT [facility] Urine Hgb LARGE(A) NEGATIVE 01/26/2025 5:53 PM EDT [facility] pH, Urine 6.5 5.0 - 8.0 01/26/2025 5:53 PM EDT [facility] Protein, UA 2+(A) NEGATIVE mg/dL 01/26/2025 5:53 PM EDT [facility] Urobilinogen, Urine Normal 0.0 - 1.0 EU/dL 01/26/2025 5:53 PM EDT [facility] Nitrite, Urine NEGATIVE NEGATIVE 01/26/2025 5:53 PM EDT [facility] Leukocyte Esterase, Urine MODERATE(A) NEGATIVE 01/26/2025 5:53 PM EDT [facility] Urine 01/26/2025 5:53 PM EDT 01/26/2025 5:53 PM EDT Andrzej Desai MD URINE ORDERABLES Final Result [facility] [address] [place] [address], [facility] [phone] * Microscopic Urinalysis (01/26/2025 5:53 PM EDT) WBC, UA 20 TO 50 0 - 5 /HPF 01/26/2025 5:53 PM EDT [facility] RBC, UA TOO NUMEROUS TO COUNT 0 - 4 /HPF 01/26/2025 5:53 PM EDT [facility] Comment:Reference range defi salty for non-centrifuged specimen. Casts UA 2 TO 5 HYALINE Reference range defined for non-centrifug ed specimen. 0 - 8 /LPF 01/26/2025 5:53 PM EDT [facility] Epithelial Cells, UA 2 TO 5 0 - 5 /HPF 01/26/2025 5:53 PM EDT [facility] Bacteria, UA None None 01/26/2025 5:53 PM EDT [facility] 01/26/2025 5:53 PM EDT 01/26/2025 5:53 PM EDT Andrzej Desai MD URINE ORDERABLES Final Result Performing Organization Address [facility] Phone Number [address] [phone] * PREVIOUS SPECIMEN (01/22/2025 11:04 AM EDT) 01/22/2025 11:0 4 AM EDT 01/22/2025 11:09 AM EDT Nathen Kearns DO CHEMISTRY ORDERABLES Fin al Result Performing Organization Address [facility] [place] [address], [facility] [phone] * Lactic Acid (01/22/2025 11:04 AM EDT) Lactic Acid, Whole Blood 1.0 0.7 - 2.1 mmol/L 01/22/2025 11:04 AM EDT [facility] BLOOD SPECIMEN / Unknown 01/22/2025 11:04 AM EDT 01/22/2025 11:09 AM EDT Zia Covington MD CHEMISTRY ORDERABLES Final Resul t Performing Organization Address [facility] [place] [address], [facility] [phone] * Stone Analysis (01/22/2025 4:44 AM EDT) [...] composition determined by FTIR analysis. Performed By: [facility] [address] [place] [address] Quotation Checker: Jorge Melendrez MD, PhD CLIA Number: [id number] Stone Mass See Note mg 01/22/2025 4:44 [...] MICROBIOLOGY - GENERAL ORDERA BLES Final Result [facility] [address] [place] [address] [facility] [address] [place], [place] [address] [phone] * [place] VOIDING URETHROCYSTOGRAM S&I (01/17/2025 8:59 [...] DOSE AND TYPE: Radiation Exposure Index: DAP 184.38iUgke7, FINDINGS: 600 mL of Cystografin was instilled [...] DOSE AND TYPE: Radiation Exposure Index: DAP 184.56mReqf7, FINDINGS: 600 mL of Cystografin was instilled [...] and post Lasix washout Adonis Sanchez MD [facility] ORDERABLES Final Result from Last 3 Months Insurance ALLIED BENEFIT SYSTEM Advance Directives * Full Code (Latest Code Status on File) Date Activated Date Inactivated Comments 01/26/2025 5:26 PM 01/29/2025 11:47 AM * Full Code Date Activated Date Inactivated Comments 01/21/2025 11:46 PM 01/22/2025 6:02 PM Care Teams Handling Tech Relationship Specialty Start Date End Date Ignacio Das MD [address] [place] [address] PCP - General Family Medicine 01/05/25
--- OUTSIDE RECORDS SUMMARY | 2025-04-05 20:51 | XMS_ITS | Encounter Summary ---
Author Organization [facility] tem Address [id number] [address] [place] [address] Care Team Providers Care Trustee Of Estate Name Role Phone Ignacio Das MD Primary Care Provider [phone] Encounter Details Date Type Department Care Team (Late st Contact Info) Description 07/26/2020 Abstract Maternal- Medicine at [facility] [address] [place] [address] Billy Cazares MD [address] [facility], [address] [place] [address] Social History Tobacco Use Types [...] on filedocumented in this encounter Care Teams Trustee Of Estate Relationship Specialty Start Date End Date Ignacio Das MD PCP - General Family Medicine 09/17/20 documented as of this encounter
--- OUTSIDE RECORDS SUMMARY | 2025-04-05 20:51 | XMS_ITS | Encounter Summary ---
Author Organization [facility] Address [address] [place] [address] Care Team Providers Care Community Liaison Officer Name Role Phone Ignacio Das MD Primary Care Provider [phone] Encounter Details Date Type Department Care Team ([facility] Contact Info) Description 05/06/2023 Abstract [facility] OB [address] [facility] [place] [address] Jefferson Gibbs [address] [facility] [place] [address] Social History Tobacco Use Types Packs/Day [...] Upcoming Encounters Date Type Department Care Team ([facility] Contact Info) Description 04/10/2025 9:50 AM EDT Office Visit [facility] [address] [place] [phone] Alejandra Leiva MD [address] [place], [place] [id number] 04/09/2026 9:00 AM EDT Office Visit [facility] OB [address] [facility] [place] [address] Jefferson Gibbs, [address] [place] [address] documented as of this encounter Visit Diagnoses Not on filedocumented in this encounter Care Teams Community Liaison Officer Relationship Specialty Start Date End Date Ignacio Das MD [address] [facility] [place] [address] PCP - General Family Medicine 04/13/23 documented as of this encounter
[2025-04-11 15:09] LABS: Age Gdln ACOG Testing Note (.); HPV Aptima Negative (Negative); IGP, Aptima HPV, rfx 16/18,45 Note (.)
== END 2025-04-05 20:47 | disposition home or self-care (01) ==
LOC: LAB 20:46
PROVIDERS: PCP Family Medicine; Visit Provider Obstetrics & Gynecology
DX: Z01.419 Encounter for gynecological examination (general) (routine) without abnormal findings (principal)
CPT/HCPCS: 87624; 88175

== ENCOUNTER 2025-05-05 19:00 | Emergency (ER) | payer OTHER, SELFPAY ==
[2025-05-05 19:04] VITALS: BP 146/89; PULSE 74; TEMP 37; O2SAT 99; BMI 29.1
--- NOTE | 2025-05-05 19:13 | ED.FEMALEGU1 ---
HPI - Female Genitourinary General Chief complaint: Urogenital-Female Stated complaint: PAIN ON LEFT BACK SIDE Time Seen by Provider: 05/05/25 19:13 Source: patient Mode of arrival: walk-in History of Present Illness HPI Narrative: cc - pain with urination Pt complaints of painful urination that began last night. She also complains of pain in the left flank. No fever. Nausea today - had vomiting yesterday x2. No diarrhea. No blood in stool or urine. Prior history of UTI, pyelonephritis and kidney/ureteral stones. Hysterectomy April 2023. Related Data Home Medications ?Medication ?Instructions ?Recorded ?Confirmed estradiol 0.05 mg/24 hr weekly 1 patch transdermal .Weekly 05/05/25 05/05/25 transdermal patch meloxicam 15 mg tablet 15 mg PO DAILY 05/05/25 05/05/25 methenamine hippurate 1 gram tablet 1 g PO BID 05/05/25 05/05/25 tizanidine 4 mg tablet 8 mg PO DAILY 05/05/25 05/05/25 Previous Rx's ?Medication ?Instructions ?Recorded phenazopyridine 200 mg tablet 200 mg PO Q8H PRN pain 6 doses #6 10/02/24 (Pyridium) tabs ciprofloxacin HCl 500 mg tablet 500 mg PO BID #10 tabs 05/05/25 (Cipro) ketorolac 10 mg tablet 10 mg PO Q8H PRN pain 5 days #15 05/05/25 tabs promethazine 25 mg tablet 25 mg PO Q6H PRN nausea and 05/05/25 vomiting #20 tabs Allergies Allergy/AdvReac Type Severity Reaction Status Date / Time No Known Drug Allergies Allergy Verified 05/05/25 19:06 [facility] Medical History (Updated 05/05/25 @ 21:25 by Vj Fraire) Anxiety and depression ?F41.9 - Anxiety disorder, unspecified (ICD-10) ?F32.A - Depression, unspecified (ICD-10) Kidney stones ?N20.0 - Calculus of kidney (ICD-10) Bipolar disorder ?F31.9 - Bipolar disorder, unspecified (ICD-10) Kidney stones ?N20.0 - Calculus of kidney (ICD-10) Surgical History (Updated 12/02/24 @ 17:36 by Tamiko Taylor) H/O: hysterectomy ?Z90.710 - Acquired absence of both cervix and uterus (ICD-10) History of ultrasound guided needle biopsy ?Z98.890 - Other specified postprocedural states (ICD-10) H/O local excision of skin lesion ?Z98.890 - Other specified postprocedural states (ICD-10) S/P extracorporeal shock wave therapy (03/2023) ?Z98.890 - Other specified postprocedural states (ICD-10) History of wisdom tooth extraction ?K08.409 - Partial loss of teeth, unspecified cause, unspecified class (ICD-10) H/O LEEP ?Z98.890 - Other specified postprocedural states (ICD-10) History of endometrial ablation ?Z98.890 - Other specified postprocedural states (ICD-10) S/P cystoscopy ?Z98.890 - Other specified postprocedural states (ICD-10) S/P ureteral stent placement ?Z96.0 - Presence of urogenital implants (ICD-10) H/O ureteroscopy ?Z98.890 - Other specified postprocedural states (ICD-10) History of cholecystectomy ?Z90.49 - Acquired absence of other specified parts of digestive tract (ICD-10) Family History Other Family history of hypertension Social History Within the past year, how often did you have a drink containing alcohol: monthly or less Smoking status: Never smoker Non-prescribed substance use: denies use 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 afebrile General: Uncomfortable. Skin: Warm, dry, no pallor noted. Eye: Pupils are equal, round and EOMI. No scleral icterus. Ears, Nose, Mouth, and Throat: Oral mucosa is moist Cardiovascular: Regular Rate and Rhythm without murmur, gallop or rub. Respiratory: No accessory muscle use or respiratory distress. Lungs are clear to auscultation, no wheezing, rales or rhonchi Back: Left CVA tenderness Musculoskeletal: normal ROM GI: Abdomen is soft, non-distended. Normal bowel sounds. No masses appreciated. LLQ tenderness to palpation. No adnexal tenderness or mass. No rebound, guarding, or rigidity noted. Neurological: A&O x4. No cranial nerve dysfunction observed. No truncal ataxia. Moves all extremities. Sensation intact. Psychiatric: Cooperative and interactive. Normal mood and affect. Constitutional Vital Signs, click to edit/add: Last Vital Signs Temp 98.6 F 05/05/25 19:04 Pulse 74 05/05/25 19:04 Resp 20 05/05/25 19:04 BP 146/89 H 05/05/25 19:04 Pulse Ox 99 05/05/25 19:04 O2 Del Method Room Air 05/05/25 19:04 Course Vital Signs Vital signs: Vital Signs Temperature 98.6 F 05/05/25 19:04 Pulse Rate 74 05/05/25 19:04 Respiratory Rate 20 05/05/25 19:04 Blood Pressure 146/89 H 05/05/25 19:04 Pulse Oximetry 99 05/05/25 19:04 Oxygen Delivery Method Room Air 05/05/25 19:04 Temperature 98.6 F 05/05/25 19:04 Pulse Rate 74 05/05/25 19:04 Respiratory Rate 20 05/05/25 19:04 Blood Pressure 146/89 H 05/05/25 19:04 Pulse Oximetry 99 05/05/25 19:04 Oxygen Delivery Method Room Air 05/05/25 19:04 MDM - Female Genitourinary MDM Narrative Medical decision making narrative: Urine obtained and sent for testing was found to be infected. Patient said that she could not tolerate oral medications for nausea and pain and therefore requested a peripheral IV be established. Blood was drawn and sent for testing. Patient received IV Toradol and IV Zofran. CBC did not reveal elevated white count. Normal renal function. Patient received IV Cipro for her UTI - given IV due to intractable nausea. @ 2009 - on recheck pt told me that she had no reduction in pain and no reduction in nausea. Pt ordered to receive IV Dilaudid and IV Phenergan. After talking with the patient and her , she elected to get CT abd/pelvis to evaluate for obstructing renal/ureteral stone due to level of pain. She expressed awareness of the risks associated with CT scanning. @ 2117 - I received and reviewed the CT result - no obstructive stones, no pyelo, no bowel obstruction. Non-obstructing stones noted bilaterally. Pt rechecked @ results discussed. She was discharged home with prescriptions for cipro, toradol and phenergan. Encouraged to drink plenty of fluids, rest, maintain proper nutrition. PCP follow up recommended. Medical Records Attestation: I reviewed the patient's medical records. Lab Data Attestation: I reviewed the patient's lab results. Labs: Lab Results 05/05/25 05/05/25 Range/Units 19:11 19:26 WBC 6.8 (4.0-11.0) 10^3/uL RBC 4.33 (4.20-5.40) 10^6/uL Hgb 12.7 (12.0-16.0) g/dL Hct 37.5 (36.0-48.0) % MCV 86.6 (81.0-99.0) fL MCH 29.3 (26.7-34.0) pg MCHC 33.9 (29.9-35.2) g/dL RDW 12.7 (11.0-15.0) % Plt Count 299 (150-450) 10^3/uL MPV 9.6 (9.5-13.5) fL Neut % (Auto) 41.6 L (43.0-75.0) % Lymph % (Auto) 47.8 (20.5-60.0) % [place] % (Auto) 9.2 (1.7-12.0) % Eos % (Auto) 0.7 L (0.9-7.0) % Baso % (Auto) 0.7 (0.2-2.0) % Neut # (Auto) 2.8 (1.4-6.5) 10^3/uL Lymph # (Auto) 3.3 (1.2-3.8) 10^3/uL [place] # (Auto) 0.6 (0.3-0.8) 10^3/uL Eos # (Auto) 0.1 (0.0-0.7) 10^3/uL Baso # (Auto) 0.1 (0.0-0.1) 10^3/uL Abs Immat Gran (auto) 0.00 (0.00-0.03) 10^3/uL Imm/Tot Granulo (auto) 0.0 (0.0-0.5) % Sodium 144 (136-145) mmol/L Potassium 3.4 L (3.5-5.1) mmol/L Chloride 104 (98-107) mmol/L Carbon Dioxide 30.3 (21.0-32.0) mmol/L Anion Gap 13.1 BUN 8.0 (7.0-18.0) mg/dL Creatinine 0.74 (0.55-1.02) mg/dL Est GFR ( Amer) >60 (>=60 mL/min/1.73m^2) Est GFR (Non-Af Amer) >60 (>=60 mL/min/1.73m^2) BUN/Creatinine Ratio 10.8 Glucose 90 (74-106) mg/dL Calcium 9.5 (8.5-10.1) mg/dL Urine Color Lt. yellow (YELLOW) Urine Clarity Cloudy A (CLEAR) Urine pH 7.5 (5.0-9.0) Ur Specific [place] 1.015 (1.005-1.025) Urine Protein Negative (NEG/TRACE) mg/dL Urine Glucose (UA) Negative (NEGATIVE) mg/dL Urine Ketones Negative (NEGATIVE) mg/dL Urine Occult Blood Trace-i (NEGATIVE) Urine Nitrite Negative (NEGATIVE) Urine Bilirubin Negative (NEGATIVE) Urine Urobilinogen 0.2 (0.2-1.0) EU/dL Ur Leukocyte Esterase Moderate A (NEGATIVE) Urine RBC 2-5 A (0-2) #/HPF Urine WBC 5-10 A (NONE SEEN) #/HPF Ur Squamous Epith Cells Few A (NONE/RARE) #/LPF Urine Crystals None seen (None Seen) #/HPF Urine Bacteria Large A (NONE SEEN) #/HPF Urine Casts None seen (NONE SEEN) #/LPF Urine Mucus None seen (NONE SEEN) Ur Culture Indicated? Yes-[facility] [place] Data CT scan - abdomen: Radiologist's impression: ITS Impressions Abdomen/Pelvis CT 05/05/25 20:20 IMPRESSION: No bowel obstruction or obstructive uropathy. Nonobstructing renal stones are present bilaterally. Additional chronic appearing findings are noted as above. Impression dictated by: Enrique Conley M.D. 05/05/2025 9:15 PM Dictation Location[facility] Electronically authenticated by: [id number] Y Date: 05/05/2025 21:15 Discharge Plan Discharge Chief Complaint: Urogenital-Female Clinical Impression: UTI (urinary tract infection), Acute left flank pain, Nausea & vomiting Patient Disposition: Home, Self-Care Time of Disposition Decision: 21:25 Prescriptions / Home Meds: New ciprofloxacin HCl [Cipro] 500 mg tablet 500 mg PO BID Qty: 10 0RF ketorolac 10 mg tablet 10 mg PO Q8H PRN (Reason: pain) 5 Days Qty: 15 0RF promethazine 25 mg tablet 25 mg PO Q6H PRN (Reason: nausea and vomiting) Qty: 20 0RF No Action phenazopyridine [Pyridium] 200 mg tablet 200 mg PO Q8H PRN (Reason: pain) Qty: 6 0RF meloxicam 15 mg tablet 15 mg PO DAILY tizanidine 4 mg tablet 8 mg PO DAILY methenamine hippurate 1 gram tablet 1 g PO BID estradiol 0.05 mg/24 hr patch weekly 1 patch transdermal .Weekly Print Language: Micronesian Instructions: Urinary Tract Infection in Women (ED), Acute Nausea and Vomiting (ED), Flank Pain (ED) Referrals: Ignacio Das MD [Primary Care Provider, Family Practice] - 1 week
--- OUTSIDE RECORDS SUMMARY | 2025-05-05 19:19 | XMS_ITS | CCD ---
Author Organization [facility] CliniSysc Care Team Providers Care Edger Tailer Name Role Phone Domingo Snyder MD Unavailable DANIEL MONTGOMERY Attending Unavailable DOMINGO SNYDER Referring Unavailable Domingo Snyder Primary Care Physician LILLIAN ., DR LANE [...] Care Unavailable VARUN ., ORA Consulting Unavailable RAYGOZA ., DR CASTELLANO Consulting Unavailable RAYGOZA ., DR CASTELLANO Attending Unavailable RAYGOZA ., DR CASTELLANO Admitting Unavailable HOY ., DR LANE Primary Care Unavailable HOY ., DR LANE Primary Care Unavailable HOY ., DR LANE Consulting Unavailable HOY ., DR LANE Attending Unavailable HOY ., DR LANE Admmanpreet Unavailable DAJUAN, DR GLEN Alford Consulting Unavailable ARNAVY ., DR LANE Primary Care Unavailable BERNIE ., DR TOLBERT Admitting Unavailable BERNIE ., DR TOLBERT Attending Unavailable BERNIE ., DR TOLBERT Consulting Unavailable RAYGOZA ., DR CASTELLANO Consulting Unavailable RAYGOZA ., DR CASTELLANO Attending Unavailable HOY ., DR LANE Primary Care Unavailable RAYGOZA ., DR CASTELLANO Admitting Unavailable ZIEBER, DR JENNIFER Turner Consulting Unavailable HOY ., DR LANE Primary Care Unavailable BERNIE ., DR TOLBERT Admitting Unavailable BERNIE ., DR TOLBERT Attending Unavailable [place], DR GLEN Alford Consulting Unavailable BERNIE ., [...] CASEY VARMA Consulting Unavailable RAYGOZA ., DR CASTELLANO Admitting Unavailable RAYGOZA ., DR CASTELLANO Consulting Unavailable RAYGOZA ., DR CASTELLANO Attending Unavailable HOY ., DR LANE Primary Care Unavailable DEVAN, CASEY Consulting Unavailable KORTNEY ACOSTA Consulting Unavailable HOY ., DR LANE Primary Care Unavailable HOY ., DR LANE Consulting Unavailable HOY ., DR LANE Attending Unavailable HOY ., DR LANE Admitting Unavailable RAYGOZA ., DR CASTELLANO Consulting Unavailable PAY ., DR XIAO Consulting Unavailable MARKER ., DR YE Consulting Unavailable EDIE, KESHIA Consulting Unavailable GM HERNANDEZ Consulting Unavailable BERNIE ., DR TOLBERT Admitting Unavailable HOY ., DR LANE Primary Care Unavailable BERNIE ., DR TOLBERT Attending Unavailable BERNIE ., DR TOLBERT Consulting Unavailable RAYGOZA Nona R Attending Unavailable RAYGOZANona R Attending Unavailable RAYGOZA Nona R Attending Unavailable RAYGOZANona R Attending Unavailable MD Domingo Snyder Primary Care Provider [phone] MD Arnulfo Aviles Admit Provider MD Arnulfo Aviles Attending Provider Domingo Snyder MD Primary Care Provider [phone] Domingo Snyder MD Attending Provider ADONIS GUERRA Referring Unavailable DOMINGO SNYDER Primary Care Unavailable Domingo Snyder MD Primary Care Provider [phone] Domingo Snyder MD Primary Care Provider [phone] Domingo Snyder MD Attending Provider [phone] Javi Tanner PA-C Attending Provider Javi Tanner Admitting Unavailable Javi Tanner Attending Unavailable Domingo Snyder Primary Care Unavailable HoDomingo gupta M Attending Unavailable Arnavy, Domingo M Admitting Unavailable Hoy, Domingo M Primary Care Unavailable Traci, Arnulfo Admitting Unavailab le Arnulfo Aviles Attending Unavailab le Domingo Snyder M Primary Care Unavailable Traci, Arnulfo Admitting Unavailab le Arnulfo Aviles Attending Unavailab le DOMINGO SNYDER M Primary Care Unavailable JAVI TANNER Referring Unavailable SURENDRA SALINAS Consulting Unavailable MASESTRELLA Kearns, MOHAMMAD Admitting Unavailable JOSE Kearns, KATED Attending Unavailable HOY, DOMINGO M Primary Care Unavailable ADONIS GUERRA Attending Unavailable ADONIS GUERRA Referring Unavailable HODOMINGO Gupta Primary Care Unavailable HODOMINGO Gupta M Primary Care Unavailable SIDNEY, HAYLEY Metzger Referring Unavailable EDWINA ESPINO Consulting Unavailable MASESTRELLA I, MOHAMMAD Admitting Unavailable JOSE Kearns, NATHEN Attending Unavailable Adonis Guerra Attending Unavailable Adonis Guerra Admitting Unavailable HOY, DOMINGO Primary Care Unavailable ARNAVY, DOMINGO Primary Care Unavailable Domingo Snyder MD Primary Care Provider [phone] JEFFERSON GIBBS Attending Unavailable PATRICK LEIVA Attending Unavailable PATRICK LEIVA Attending Unavailable Medications Current Medications Medication Drug [...] HOURS, First dose on Julia 01/26/25 at 2044, Administer as slow IV Push over 5 [...] 13, 2022 12:00am August 16, 2022 11:38am 168 hr estradiol 0.08713 mg/hr transdermal system (9 sources) Estrogen Start: 04-05-2025 End: 04-05-2026 estradiol (Climara) 0.05 MG/24HR Indications: Night sweats Place 1 patch over 7 days on the skin 1 (one) time per week 12 patch 3 04/05/2025 04/05/2026 Active 1 ml HYDROmorphone hydrochloride 1 mg/ml cartridge [...] 2022 11:38am ibuprofen 600 mg oral tablet (12 sources) Nonsteroidal Anti-inflammatory Drug Start: 01-29-2025 End: 02-05-2025 take 1 tablet by mouth three times daily as needed for pain ibuprofen (ADVIL;MOTRIN) 600 MG tablet Take 1 tablet by mouth 3 times daily as needed for Pain 21 tablet 01/29/2025 02/05/2025 Active Start: 01-22-2025 End: 01-21-2025 take 1 dose by mouth once 600 mg, Oral, ONCE, 1 dose, On Thu01/22/25 at 0015 Start: 05-07-2023 take 1 tablet by clem th every eight hours ibuprofen 800 MG tablet Take 800 mg by mouth every 8 (eight) hours 05/07/2023 Active 1 ml ketorolac tromethamine 30 mg/ml cartridge (1 source) Nonsteroidal Anti-inflammatory Drug, Cyclooxygenase Inhibitor Start: 01-26-2025 End: 01-31-2025 30 mg, IntraVENous, EVERY 6 HOURS PRN, Starting on Julia 01/26/25 at 2128, Until Thu01/31/25 at 212, Pain Moderate (4-6), allowed for higher pain score per patient request, Pain Severe (7-10), Do not administer for more than 5 days. 50 ml magnesium sulfate 40 mg/ml injection (1 source) Start: 01-21-2025 morphine (PF) injection 2 mg (1 source) Start: 01-21-2025 morphine (PF) injection 2 mg nabumetone 750 mg oral tablet (10 sources) Nonsteroidal Anti-inflammatory Drug Start: 07-17-2023 nabumetone (Relaf en) 750 MG tablet Take 750 mg by mouth as needed in the morning and 750 mg as needed in the evening. 07/17/2023 Active Rarden (No Known Home Meds) (3 sources) Start: 04-08-2024 Rarden (No Kn own Home Meds) Active April 07, 2024 11:00pm Start: 04-08-2024 Rarden (No Kn own Home Meds) Active April [...] sources) Osmotic Laxative Start: 01-26-2025 Start: 01-21-2025 potassium bicarbonate 25 meq effervescent oral tablet (10 sources) Start: 06-23-2023 Effer-K 25 MEQ effervescent tablet 06/23/2023 Active Potassium Chloride (1 source) Start: 01-21-2025 potassium [...] EVERY 4 HOURS PRN, Starting on Julia 01/26/25 at 1736, Until Discontinued, Pain Mild (1-3), [...] Nous, EVERY 6 HOURS PRN, Starting on Thu01/22/25 at 0756, Until Discontinued, Nausea, If administering [...] at 150 mL/hr, C ONTINUOUS, Starting on 01/22/25 at 0015 tamsulosin hydrochloride 0.4 mg oral [...] [UMBILICAL HERNIA W/O OBST/GANGRENE] Onset: 02-18-2023 Episodic Adjustment disorders (2 sources) Reaction to severe stress, unspecified; Translations: [Reaction to severe stress. unspecified] Onset: 06-16-2024 Chronic Anxiety disorders (12 sources) Generalized anxiety disorder; Translations: [Anxiety] Onset: 07-26-2020 Chronic Genitourinary symptoms and ill-defined conditions (16 sources) Urge incontinence of urine; Translations: [Presence of urogenital implants] Onset: 09-09-2022 12-19-2019 Chronic Inflammation; infection of eye (except that caused by tuberculosis or sexually transmitteddisease) (2 sources) Hordeolum externum of upper eyelid of right eye; Translations: [Hordeolum externum right upper eyelid] 04-10-2025 Episodic Menstrual disorders (15 sources) Excessive and frequent menstruation with regular cycle; Translations: [Menorrhagia] Onset: 11-04-2022 Chronic Mood disorders (20 sources) Major depressive disorder, single episode, unspecified; Translations: [Major depressive disorder, recurrent, unspecified] Onset: 08-14-2022 03-20-2023 Chronic Nausea and vomiting (4 sources) Nausea with vomiting, unspecified; Translations: [NAUSEA WITH VOMITING UNSPECIFIED] Onset: 02-16-2023 Episodic Neoplasms of unspecified nature or uncertain behavior (2 sources) Neoplastic disease; Translations: [Neoplasm of unspecified behavior of bone, soft tissue, and skin] 04-10-2025 Episodic Other aftercare (1 source) Other exterminator termite (current) drug therapy; Translations: [OTH RESEARCH PSYCHOLOGIST CURRENT DRUG THERAPY] Onset: 02-18-2023 Episodic Other aftercare (1 source) USP (current) use of oral hypoglycemic drugs; Translations: [RESEARCH PSYCHOLOGIST USE ORAL HYPOGLYCEMIC DX] Onset: 02-18-2023 Episodic Other aftercare (2 sources) Removal of sutures done; Translations: [Encounter for removal of sutures] 04-24-2025 Episodic Other diseases of kidney and ureters [...] 01-26-2025 01-27-2025 Episodic Other nervous system disorders (10 sources) Entrapment of left ulnar nerve; Translations: [Lesion of ulnar nerve, left upper limb] Onset: 06-01-2023 06-01-2023 Chronic Other nervous system disorders (10 sources) Lesion of ulnar nerve; Translations: [Lesion of ulnar nerve, unspecified upper limb] Onset: 06-01-2023 06-01-2023 Chronic Other nervous system disorders (5 sources) Acute [...] BMI 40.0-44.9 ADULT] Onset: 08-14-2022 Chronic Other nutritional; endocrine; and metabolic disorders (10 sources) Body mass index 40+ - severely obese; Translations: [Body mass index (BMI) 40.0-44.9, adult] Onset: 04-10-2023 04-10-2023 Chronic Other screening for suspected conditions (not mental disorders or infectious disease) (5 sources) Encounter for screening for malignant neoplasm of cervix; Translations: [Other specified abnormal findings of blood chemistry] Onset: 09-03-2022 Episodic Other skin disorders (2 sources) Night sweats; Translations: [Generalized hyperhidrosis] 04-05-2025 Episodic Residual codes; unclassified (1 source) Acquired [...] [CONTACT W/AND (SUSP) EXPOS COVID-19] Onset: 11-04-2022 Past or Other Problems Problem Classification Problem Date Documented Da te Episodic/Chronic Abdominal pain (19 sources) Flank pain; Translations: [Unspecified abdominal pain] Onset: 2 02-28-2020 Episodic Blindness and vision defects (10 sources) Astigmatism; Translations: [Unspecified astigmatism, unspecified eye] Onset: 7 06-01-2023 Episodic Calculus of urinary tract (20 sources) Kidney stone; Translations: [Personal history of urinary calculi] Onset: 2 12-19-2019 Episodic Cancer of cervix (2 sources) Low grade squamous intraepithelial lesion on cytologic smear of cervix (LGSIL); Translations: [High grade squamous intraepithelial lesion on cytologic smear of cervix (HGSIL)] Onset: 3 Episodic Contraceptive and procreative management (10 sources) Intrauterine contraceptive device in situ; Translations: [Presence of (intrauterine) contraceptive device] Onset: 3 04-10-2023 Episodic Deficiency and other anemia (1 source) Iron deficiency anemia, unspecified; Translations: [IRON DEFICIENCY ANEMIA UNSPECIFIED] Onset: 2 Episodic Diabetes or abnormal glucose tolerance complicating ; childbirth; or the puerperium (10 sources) History of gestational diabetes mellitus; Translations: [Personal history of gestational diabetes] Onset: 0 06-01-2023 Episodic Early or threatened labor (10 sources) Term delivered; Translations: [Term delivery with labor, third trimester, not applicable or unspecified] Onset: 8 06-01-2023 Episodic Fluid and electrolyte disorders (2 sources) Dehydration; Translations: [Hypo-osmolality and hyponatremia] Onset: 2 Episodic Genitourinary symptoms and ill-defined conditions (20 sources) Dysuria; Translations: [Increased frequency of urination] Onset: 3 02-28-2020 Episodic Immunizations and screening for infectious disease (1 source) Encounter for screening for human papillomavirus (HPV); Translations: [ENC SCREENING HUMAN PAPILLOMAVIRUS] Onset: 2 Episodic Nonmalignant breast conditions (10 sources) Lump in left breast; Translations: [Unspecified lump in the left breast, unspecified quadrant] Onset: 4 01-08-2024 Episodic Other aftercare (10 sources) Patient encounter status; Translations: [Encounter for follow-up examination after completed treatment for conditions other than malignant neoplasm] Onset: 3 04-10-2023 Episodic Other complications of (10 sources) 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, non-Rh blood-group incompatibility affecting ; Translations: [Maternal care for other isoimmunization, unspecified trimester, not applicable or unspecified] Onset: 8 06-01-2023 Episodic Other connective tissue disease (10 sources) Muscle pain; Translations: [Myalgia, unspecified site] Onset: 3 06-01-2023 Episodic Other diseases of bladder and urethra (13 sources) Urethral stricture; Translations: [Unspecified urethral stricture, female] Onset: 3 12-19-2019 Episodic Other diseases of kidney and ureters (10 sources) Stricture of ureter; Translations: [Crossing vessel and stricture of ureter without hydronephrosis] Onset: 3 06-01-2023 Episodic Other female genital disorders (10 sources) Retroflexed uterus; Translations: [Malposition of uterus] Onset: 3 06-01-2023 Episodic Other infections; including parasitic (10 sources) History of chlamydial infection; Translations: [Personal history of other infectious and parasitic diseases] Onset: 0 06-01-2023 Episodic Other nutritional; endocrine; and metabolic disorders (10 sources) Abnormal weight gain; Translations: [Abnormal weight gain] Onset: 3 04-10-2023 Episodic Other nutritional; endocrine; and metabolic disorders (10 sources) Overweight; Translations: [Overweight] Onset: 3 06-01-2023 Episodic Other and delivery including normal (10 sources) Intrauterine ; Translations: [Encounter for supervision of normal , unspecified, unspecified trimester] Onset: 8 06-01-2023 Episodic Other skin disorders (10 sources) Mass of scalp; Translations: [Localized swelling, mass and lump, head] Onset: 3 06-01-2023 Episodic Other upper respiratory infections (10 sources) Streptococcal sore throat; Translations: [Streptococcal pharyngitis] Onset: 3 06-01-2023 Episodic Ovarian cyst (1 source) Other ovarian cyst, right side; Translations: [OTHER OVARIAN CYST RIGHT SIDE] Onset: 3 Episodic Phlebitis; thrombophlebitis and thromboembolism (10 sources) Superficial thrombophlebitis; Translations: [Phlebitis and thrombophlebitis of unspecified site] Onset: 3 06-01-2023 Episodic Septicemia (except in labor) (1 source) Sepsis due to streptococcus, group B; Translations: [SEPSIS DUE TO STREPTOCOCCUS GROUP B] Onset: 2 Episodic Sprains and strains (14 sources) Sprain of calcaneofibular ligament of left ankle, initial encounter; Translations: [Sprain of calcaneofibular ligament] Onset: 2 Episodic Urinary tract infections (20 sources) Pyelonephritis; Translations: [Urinary tract infectious disease] Onset: 2 11-24-2019 Episodic Results Test Name Value Interpretation Reference Range Facility IGP,APTIMA HPV,AGE GDLNon AGE GDLN ACOG TESTING Note . [facility] Comment on above: TESTS RESULT FLAG UN ITS REF RANGE LAB Clinician Provided Cytology Information Source.............Vagina No. of containers..01 ThinPrep Vial Age Algo ACOG Radha... FLAG LEGEND: L-Low Normal,H-High Normal,LL-Alert Low,HH-Alert High <-Panic Low,>-Panic High,A-Abnormal,AA-Critical Abnormal Performed at: 01 =[address] [address] Shereen Caal MD, HPV APTIMA Negative Negative [facility] Comment on above: This nucleic acid am plification test detects fourteen high- risk HPV types (16,18,31,33,35,39,45,51,52,56,58,59,66,68) without differentiation. Performed at: =[address] [id number] Branch Controller: Shereen Caal MD, Phone: [phone] Performed at: [address] [id number] Branch Controller: Shereen Caal MD, Phone: [phone] IGP, APTIMA HPV, RFX 16/18,45 Note Abnormal . [facility] Comment on above: TESTS RESULT FLAG UN ITS REF RANGE LAB DIAGNOSIS: [A] 02 EPITHELIAL CELL ABNORMALITY. ATYPICAL SQUAMOUS CELLS OF UNDETERMINED SIGNIFICANCE (ASC-US). Recommendation: [A] 02 Suggest follow up as clinically appropriate. Specimen adequacy: 02 Satisfactory for evaluation. Performed by: 02 Tamiko Barrow, Gas Line Repairer ([facility]) Electronically si... 02 Capri Boston MD, Pathologist . 02 Pathologist ICD10: 02 R87.610 Note: Note 02 The Pap smear is a screening test designed to aid in the detection of premalignant and malignant conditions of the uterine cervix. It is not a diagnostic procedure and should not be used as the sole means of detecting cervical cancer. Both false-positive and false-negative reports do occur. Test Methodology: Note 02 This liquid based ThinPrep(R) pap test was screened with the use of an image guided system. HPV Genotype Reflex Note 02 Criteria not met, HPV Genotype not performed. FLAG LEGEND: L-Low Normal,H-High Normal,LL-Alert Low,HH-Alert High <-Panic Low,>-Panic High,A-Abnormal,AA-Critical Abnormal Performed at: [address] [phone] Shereen Caal MD, Interpretation and review of laboratory results Abnormal [facility] No Panel Informationon 04-10 Type of biopsy: [facility] Informed consent: discussed and consent obtained Informed consent comment: The risks and benefits of the biopsy were discussed. Risks include but are not limited to bleeding, infection, scarring, pain, and nerve damage. An opportunity to ask questions prior to the procedure was permitted and all questions were answered. Patient was prepped and draped in usual sterile fashion: area cleansed with alcohol. Anesthesia: the lesion was anesthetized in a standard fashion Anesthetic: 1% lidocaine w/ epinephrine 1-100,000 buffered w/ 8.4% NaHCO3 Punch size: 3 mm Suture size: 4-0 Suture type: nylon Hemostasis achieved with: suture and electrodesiccation Outcome: patient tolerated procedure well Outcome comment: The specimen was placed in a prelabeled formalin container to be sent for pathology Post-procedure details: sterile dressing applied and wound care instructions given Post-procedure details comment: Emphasized need to contact clinic for any signs of infection, uncontrollable bleeding, or complications. Dressing type: bandage Additional details: Photo taken Amount of lidocaine used: 2.0 ml Specimen sent for H&E Number of sutures: [address] [facility] Type of biopsy: tangential Informed consent: discussed and consent obtained Informed consent comment: The risks and benefits of the biopsy were discussed. Risks include but are not limited to bleeding, infection, scarring, pain, and nerve damage. An opportunity to ask questions prior to the procedure was permitted and all questions were answered. Patient was prepped and draped in usual sterile fashion: area cleansed with alcohol. Anesthesia: the lesion was anesthetized in a standard fashion Anesthetic: 1% lidocaine w/ epinephrine 1-100,000 buffered w/ 8.4% NaHCO3 Instrument used: DermaBlade Hemostasis achieved with: electrodesiccation Outcome: patient tolerated procedure well Outcome comment: The specimen was placed in a prelabeled formalin container to be sent for pathology Post-procedure details: sterile dressing applied and wound care instructions given Post-procedure details comment: Emphasized need to contact clinic for any signs of infection, uncontrollable bleeding, or complications. Dressing type: bandage Additional details: Photo taken Amount of lidocaine used: 1.0 cc [facility] Outside Recordson 04-03-2025 Outside Records [id number] [email or web address] Coding Summaryon 03-23-2025 Coding Summary HTMLBase 64 NmzqizyvXZq2fHj+PGhlY WQ+XB3CTABiD14hwQFdlS 2kB7SGWXjQUkrgAILIHJy OCiEiqrOuLM3rxBGoBNSj IC8+BK0vWQFiLqufrKSfs 2I4xPA7Y83ufm1iJWqahH N9RIDyFwNvpsaxn4ojeNx 6IDcuNmluOyBt MFXdjN50CYQ9iJ86Wj02r DJuxXJqp4ljnHn7YcYyXC JsSGB1jNpfZUqns1RtJIV eJ30nyNCtc4T9 ZZBmgChqmUXhYlYxdTA5d E9gGKrdsrtzr8iytnnaPw m7zo44aFFuk2B1yOG3K1N ssqI2GEKcwCBj ZfchrCDRdL5pkgzer1ujd xsrEqNlEXFyRWb1KRn1UV AjoQhiIpMvXX65USP9UPP kigSaY2DlSSQn hGknYkU5l7F3Mz3HF2YAK iscP6DSYDDKWJczrHS+PC 28xk82B5HaLxtxAie0PRP eMCS3dKH4yG4h PLYyQSgog1W2rAH2J6Jmf aVnqc7cg7caIKGpHSoaO5 7mqMGxl2L8CHIhfTY1JVP zcCiyJzXvwK85 Oyc+RLKkgGdal7ZaAjefz 9uca3zseKv8GjyhBJGyyf MfzCxiNHN6t2ThTr5kYCL fgRF9rNB4iC8d KvIzOqU8KKzdK819KcJup ZBpAqidW45xD5TafXL+PH LaMhf1ZIFgmXxqLG2jA5B hZGRpbmctbGVm fQxhAP2hCABcguroEEEsy Q9lUCJaI5b8SlVgBaC1HS quE2IxQRRpoqyxFo13uB4 vZuAqAzY6GOkw L3XdejD7HUPonCAcKHyoD CL5W73qc9T4PHTmLMVpZA X6aVJ2mC9aoLwhbvezbZI mdDsgdmVydGlj ZRkdZTagJ876IQFowDnhW kNvZGluZyBEYXRlOiAgMD YvMDUvMjAyNTwvdGQ+PHR dFCA0mOgxPBKv kFSlCIsvRh9llTtddDjcV S4eAQXdxxkqJNOhiF3bWA RjkLPikIcjPH2hHGGgcbl bd312JqIdDIY0 YUZitVYnE0FmyJ1qGdYfF JDzHJThY9UtaKPaZZtuB8 37FQnlOcI9TXMqnfWxL7U sLWFsaWduOiB0 l6V7Kr8Hm7JxqmduI1Fvk WXqHgDpNrgjMSc2L6HqKj wvdHI+ZO16AMQzJQ88AYq 6AOI9uQaxRMwi UFXyK3AcnI9pXoMcJGEjY GRkOyc+PHRhYmxlIHdpZH RoPScxMDAlJyBzdHlsZT0 uTp2qSRHmDDYu cRyhpMElWpYdv1igPPZaF DdhVB4yhChnX6LbfLU2QN Zpv2o8Zf54Q43zK6SufTK +NCSkuMN5zYS3 jV8tDbIrRvC1OPdoU888T mNxkZXjGpqjd4lne2xuzK x3CbC6HNBmfnTdhQmuTMM 8x5XwWb61C69n IHdpZHRoPSIxNSUiIHZhb Thkhb2dkV6hMp6+PGNvbC W1fPG0nX4bWlBwBsW9PNu kG166CtZviGJo Mdacp3qkq4vrjZc4DtSpV NXexrYteRmqFHX6t8JjEs 75B6DuxXupp5ViZpc6kk6 2bAKmy0V1fCT9 Q9OkBKBzhvgfcGFpvHwnD I6eYMAaomqiVILojF4lJJ IfA1e4LhFxDpS9OOyfQ3P lecN1HAEgnIOo IBPesLXLaD4ohglxr8ijp hijTvWtMXOhOKy6OIq1YY ObkCpsXcJcJAM3ItT4YUH 4kFUqnE4moUsh vqqpvW3kCjv+ZDL6hXPzh FLEVF6zIbjkuJN+PHRkIH S5fHplXVcwOLQvjW5pKXS zA8y9PwQeZuT5 VTgpI8VsreX1RPRhcRLyC XZxaJJSmI7muuhyz1firz moRvFzJYGqZAn8UNh9YKJ saWduOiBsZWZ0 OyF4MZU3dWZklF5phDmwe uhhmP7sKvw+QmlydGggRG Z6ELl4W6BvEvz4LPHatZj eSB7tpYUtAIae Qj5hwCgiwNfzVV9iXBSag zzsb180WaShd2tlPGNaoV UlKRgmMGV5N19mc1R3GLN yMZCpJWU9cGU2 sM6slPriixhgkIGcbUsfo pGzmRpwMZdlJOocD074AX NocHndEcCrQMx8O8CoXcf 5QMGfpWveQG8r cJLhVMxtYu7spGggkNkaS H9eCCPcipcby540IcJkq7 ueYBQpbSMmSWceDRV7X70 qg5G0NAMtYYNh LWA5nSN8xJ4yqHlkpgaia GVmdDsgdmVydGljYWwtYW joM413NKSpvZmfTbSppEk 3V4PsLpg5PXJl aHjvGM7lrYGyRTrgVf4sw ZpghDdqAQ0gMXPapqvfc7 20BqAhg8mkOIQadVZtNLo hEVO6I87kx5G5 SLZuGHTwZML1kPX5fP2vx GlnbjogbGVmdDsgdmVydG ewXQpeXBjgB605GODlcQh nPlBhdGllbnQg EFccRIq4R9JoDcpfyCD+P H39AWAiVP22yCDmsMOpr8 bdnYw1EgDiYJAkMTA0mXz iCWoyn7BjRWAi X79qpXYfy9R7PEDllGizp KPgHnViqRX9vO1cBZbhsy oep2drcivwSlzyy7wjvw8 8zK23M99yNUbr ZHRoPSIzMCUiIHZhbGlnb e3bsZ1hOn9+IPHsxEL5dH Y8wN7wNTGxSlM9QYkbZ35 9InRvcCIvPjxj k4xav5hkfPq6JuU3BWGte uEpiXvrVXR7w8GsDj06D6 9sIHdpZHRoPSIyMCUiIHZ tjOfjyb2ddW7d Ii8+YTPirAB9tCB1zE1eX aKhOyI1LWvyU016CyMwvU OtSekuZ51oZ4QjtKV+PHR uYex1OTCsnQoh RV6faUAtXHlsLf9uUYE4O jUeVgKxLThhA2CsPSQblg aqntwpmPU1AXJuKFChuB3 3Ui3wsPecDPZi oPDOmH0ovjnnz5ulbdkbD nCsWQSoTWf1CBv2ZNUckT ldMiXtIDD6NbJ3EDC2qVR gkF8qqMqwiwcm xV6bW8VoWZGrokuuPe19l D1pVeFhWaO1DVmlIjy+TU 0MLSkdG2UJJCASUOCCI1C AGA17E5SbXgp2 RDBfsYvpEO4lfIFtEYuiU t4diElsfAamHF5mQVLmca ddFRMhtX1oJEZeuLYxgRd xHJ7cUAOwvakl l729PkAeDGE4RIGviYKcD 8FqvR6cRzRbOQAcHCKiW5 WmaQAmXLfiR465WPxtQpG 2UHRlcsDaH0Oh GHVakXuvYsZ1x3R9Fc5gD L4tJw7aEDgyCC03BB12yZ Cqw0Z7iIM5G0GhKLUlvxu gadzvkUA0XBKh EEYqvI79rZMpEVusLo0pb 2X7x039ZZEtVXYlvZ37Br 2cmIdaUVAahWSExB5qmtw yf1kyujckXlFh IWPgROe9BQl4BHUhuWxzY sBaLHJ3JoJ3VAT1gXEuoS 2bgPmvbpwubH0uUhn+MzM pHARnzfK0I7Me Gjv5BNMrbEayHQ1bbXViQ WemTt6hvZexfIpyJT8pMP MxylmaPJLhgM0yZAPleOQ vdSslAM8sJVVa yhmwh757FkTzMJQ2TDDfq BFuD3KbtZ4sEgArGFKcON IjN8RpiTGrAAdaK418GSz jWiU4DSGzpoHa R2HiHJLnsIvqJlC3y9Q0H n0DET6HUGT5G9VvXhg5NA MemNbqRN6jcHUbWQbaDz4 juBiueNzaBJ7z URUaqucyOMLuvI3yEVKjw TSdvFsuAY3wIKXkiqxrc4 39SiIaQNL5IZEpvCOhX0J fqU9oZbAmWZTj CBClA1PpsDAxNJhkB222F OnrVyX7LLXurhCnW1IdTN JqmVyjYtM0x5I8Be7ESMe vdGQ+KU82at68 A6DoFtezBbz6TMCjALV8v VC5yO1dDZNkBBcnr7W1lI A2G6SwkxSwng9ok5kmKYH wIOfiF42xsCJs q5B7TYXdqDW5ZGAjiQsjS nWnpH44Mnv+PGNvbGdyb3 UqMhfek9dvu5papXt0IoG wJSIgdmFsaWdu IXA3l9SbHy70S90jNGqvR HRoPSIzMCUiIHZhbGlnbj 5bpB4qZw0+ELXbuVH3jUW 3oS2pClUqEuZ4 IJioL778NeSefEYbXdhgx 6jzu0vzvXw2MfAeZIQsov LnqOyuJSQ5k1OpLs99W3R kuDsug5CiIsb2 jn28rRHrl0Q9jLD2Z3BrZ VMqszctvUCtoPzoOX9zJR AtoxwcVHHqqV8bBLMlA3u 9YgCsVrS6OMxi T0EwgkH6GYXyjINsFGZjp NKCxU9rwyple0ujvjjnKl AdYVRjYVc0NVs8WGSvvQp iXiOcJVR1WuQ4 PJH6uUOlrM2xzPdanxass G9wOyc+FXj3p9juoSVbQB 7vmVM5VS67VU22mDDhb6R 7mMT5W8FuVXXr gqvyhekfsDT6YHOxYVAbx W15Oc1puKwhFs9uZAUnRV Y9MXFqoHVlC5PqsN1cAqS uHZVfJVKgZ8Rp mUStHGbuI204KEuhGsJ4C MDdswMiT4UlUNTxuZghXn N5y5S5Qm4ETD87IO35EB5 8pYRwd1D4rJF1 U4ZtIAXynyflornuqOW4D EWuNXUfzE70Fn0xuGxiIa 9tWQDuRAU4KVArdQLhV3G srO1nCtQsAVHn POEgS6LznEFbXWkdW674Y KmqJlT0WRXrsqAlH2IcYC HlgPywLvD8e9M9Fg0QCk3 9LB71BF59gQUd d5R2bKH5P5KpGWMwcuwvz evrvMI6MIIsEWQmgS75Wu 0iuXsmFd7yDEXcZKD8TIP tyHLeG1VvlU9e VkGxVIBbRGYrN1LrcCVyY VorD719VHwjGbT7STJpjh LcZ3TvEHIxiQknXpQ4a4T 2Ck1QBQqiqat8 C7LqPxqfiSW+II48QFDdP U62lBEeyAZno6vvyKk7Yw BoOIJtAWG1hQrnYUgqr6J lVVWjR74mbXJd c2U (more content not included)... [facility] Provider [place] 03-20-2025 Provider Orders [id number]. 00OTGTIFF [facility] C Urineon 03-18-2025 C Urine >100,000 [...] S <=2 Verified Tri/Sulf S <=2/38 Verified Normal [facility] Comment on above: Performed By: #### 6 [id number] #### [facility] (DEFAULT) [address] [place] [address] Provider [place] 03-16-2025 Provider Orders [id number]. 00OTGTIFF Normal [facility] Cult,Bloodon 02-01-2025 Cult,Blood Specimen Description .BLOOD Special Requests Culture NO GROWTH 5 DAYS Report Status FINAL 02/01/2025 [facility] Comment on above: Performed By: #### B C #### [place] [id number] Branch Controller: Alejandro Salazar MD Cult,Blood Specimen Description .BLOOD Special Requests RIGHT HAND 1ML Culture NO GROWTH 5 DAYS Report Status FINAL 02/01/2025 [facility] Comment on above: Performed By: #### B C #### [address] [address] Branch Controller: Alejandro Salazar MD Coding Summaryon 01-30-2025 Coding Summary [employer]Base 64 OilfxunfNFc0qRl+PGhlY WQ+DD6USDHxS53keIClhG 2aT9GSAOcRYyreUSDGCNx YZgTgvnKiMZ8dwOKoPYJz IC8+YO9fTIReAiujkGGvu 1H1hJV7Z15rot9aVUenrP O6QCOtOiKzkcbip4huaKd 6IDcuNmluOyBt WDZedF39PBU1vF45Mi06b GGaoDJxa2xxbSu1YgQyIT CmOFR3qZsvQZulb1VxZLZ sP46ssMVmh5S1 EQHxiLqooJXjNzLhqPI0z V4dDZikxxxhu4rxyzfvWg z7lh56qKMfv2M1mPH6J6M qjpS4VLNerGTs LkubcIKQoR5rfyzfx7oeu uhqTjDjFHJdSDt6PAe8NL VqqUweRxJpDN99LLV1LOW usbBjS0McOVQd kLojLtA1x5O5Og8VS5MJJ yisQ5HLEGUDPNfvuHU+PC 82gq60S0WgJntiMfs0OLZ vXNH6tOT5wR7i OMNkVHxtw5I9nAU8K7Jex zYaax5kk2pwVBLyLQqmB8 9ugZClo8V6ICPvnRX5BLZ xjUfdOrDanX71 Oyc+DLWusGedp3UmResfq 2rbe1qfxGj0YsbeHHDmzh KkiQmpMCL8f2MrTo1jYCT nrAY3cWZ1oS9s OzMsGvS3KFwwX286DaGij LSnKzfpE12kL6YciBX+PH YaXei4CZKmfTopQB5eG8M hZGRpbmctbGVm pJtxFP9zOQKhrvctNMOem K3nHUKmP9z2AgAkIvO1RF gaF3MmAMQymsshXt51lW0 lEmUgHsF8TVqa X5RgrxS4RVJvsOIkWZnwX YE6Z67yy5X4UFPxYPIsGS E8qEC1jY4voNntxzrtvMU mdDsgdmVydGlj RAfySCxlX763CQWmcKtgT kNvZGluZyBEYXRlOiAgMD QvMTQvMjAyNTwvdGQ+PHR jYCN0mBriGJVi wKBbGMnkTq1fbJpskIkyJ V1bVPOtrfxwFERwrZ9eAG WlbASveNhtAW0cCSCrdgv dr145GhXsPVJ3 JINteRLaC0TwiI7hFhOzB AKjOLPgX6CdxEOpZWqrB6 46HCodKtE0MKSqucHlN2B sLWFsaWduOiB0 h3X6Cr7Ub1UgmqqhT3Lnx LPlRlIsQujzWDp1Z3BkAh wvdHI+NH74ZVChUG12UGu 6UNP4kNraFTcx MWTcC4PddL3fXzEvGDBbG GRkOyc+PHRhYmxlIHdpZH RoPScxMDAlJyBzdHlsZT0 eVj8hNRRyZLQq xIcyrBCfHlNyr8ftARRmL WbtRT4tlFgoN0AuzJQ5PE Wpr5h5Mj08O94uU5LoeYJ +OUImkSX1dUC4 pZ7uZkWcEmU6YBdzJ802A yJevAXpNidka6tnx6isaZ z6TsB9VRUpieXkfDwiSCA 1g6AzAi81A99t IHdpZHRoPSIxNSUiIHZhb Hinrh3ibI9cYq7+PGNvbC Y0vCH3nI5oYxAeYfS1VKc hV800BkZgjAHb Wullb4ozk7zanYm2EqOkV ZExyiFdgVpwLFE5u0EsVu 45D7GzxLhdr3UuMcz0be8 0wMYzc3T8lFT0 E5HqEMOnbluynWMitUgpY D2zLCEquidsTOAwaJ1qSM QyS7h4OfErGuK4TYobK9A hnjU5NMTrfEYe OYRpcZKSnT1bccsnc5pms cmnOdVzDDCmVPb7KSq1JL GsbXczUeBvRCR1XnX5CUP 6xGUltV1fkXfl zdwhkE1dXcr+LPW3fUYmu NZUGS9dBydjoGW+PHRkIH D4mXsuHOasZNOryJ4iQEI rM0i9ZuAwKrL7 DNkiC3VeywM4PQHdjMQoL JPzuHRHbT1nkxwyu5whvw cfVbDlTEYnMBr3KIi0QAT saWduOiBsZWZ0 PlM3WCE7gTHbqL5vbEren qtzbO6fSxw+QmlydGggRG J6VCo5H7WaYrd8LVVvzNt dGL1tfNDwZKqb Jf2kkXpfvFhgXH2yYJLwb vbzu770VzQyn8seBLKjqS SkNLilJFL4N17oo0M3VCW sLGVvSXS9gJS4 hO7lmHibyoaakQZcnPlsk cNgtLaaVVwoPMxtT513RD FisKceTjJpIGh1K9PmQkt 0IAVufPnnDL0g sVNvARngGf6dwJdyzRchV V7vDMGssumzk687AyWud6 ohMIUzmVLjWNowVQN7Z94 xa8L3BRUxIRVq WQD5gTU8gK8osAygheekq GVmdDsgdmVydGljYWwtYW cyS420SZVmkOnjCgZviRx 1M1JeGxt7CQOh gRdgGM1kdXAkDIevEw6wn UuwlYptDF4fBECvonatu2 94LwVhb0jfATFdfWOtTHl zDNR1N58mh3H5 HMVsLWZjYNO3lCR5nZ5xp GlnbjogbGVmdDsgdmVydG reSXyzAVutG473UCSmaZj nPlBhdGllbnQg RDorHCk5O3HvKjhabUB+P X67QHMbUS24rCGsrZFng9 qvwPd7OuNfGOErCIN5pSe bBSejy1KrHJEf P47stZSbw9F6LQVybAlub VTtPzLseWX6fC3kGPfalm mtf1vvlajuMquqd3ohpa1 3dV67I37bZTmt ZHRoPSIzMCUiIHZhbGlnb y2ycD4wAq0+VNInnLB8dO R4fM3hHBYzHnK6GNsjK42 9InRvcCIvPjxj e2zmi6frtQg3ZxO1KKVfn aAofDhoJXA6g7UkFu53X8 9sIHdpZHRoPSIyMCUiIHZ rdFhews4blB4g Ii8+CSExrWB0oOD1qZ0oJ wIcReX1IHflR187CkHfsN UnXgiqJ55tG0GduDO+PHR pObx9NUWipVxb KG3liSPyARrpLq2kNDT8M yCtRlHzNAveB7LlAEDfcp tekpxaxEI7RIAjAGNgxJ0 0Ru6shLawMIUn bRWNnA0rzwkst1borkbpP vOpJDLoWEs5GIb3LNOvjD bkNzHpBPW1NyU5XZE7oVC enI8yjZhzrfun vV6cJ1PnVOMtpntuTo94d X3sDuXfBnV6UPsgKvt+TU 6OAXilM0BXIHFQIMOQW7P OXX01D4PzEnk5 DFMfoNbsRP9ivZMrZCauM u9tzGvpjRnuPY9zJLGluc ztBOSyyT0eRVZeqDFqqTi oPE1qSOBkusto n279PsMiNKA1HCSatNIlZ 8LtaN2iWgPvDKIbPUMdR9 QpxBMaVMgeU207EGgwTtG 5LLTbscJwG5Mw FEYrvQcgRoE9p9Z0Zk6sS A5nUt6qBFxyOZ47NQ61zA Pqq5T3jXS5N8KrQWZeltp hyvdttCT1JENa RSFmuZ16pOSiPMxeCr1fv 1W0g639QFChKBJhiB05Vx 2abDbvORHbqQQDfC0lmfp sj3gloxcuDgTu DGQiDFo4CDt6DQEzeHzaH nQzKPB2McM5KEO1fVTarK 1jbAklgnmaoV2nNzr+MzM yEELaiiD2H6Eo Lcd4UBBpeFlyAX4ixGYuU PxqYe1ljNmrpMloLS3nAL LrcvexGSRdrE6vXBNfgFZ ddLosOK1fXDMb uqsfn199SxNuATH4BJNtf LCmV9UokX0uMfSvXYNgIV EcU5PtzTWeDRlsR346ASj xIuF9CRDmejFo I8DmQWCrvFuxOeV6z6Q5J i8VEB8YYFB0D4OkKqt9RP AbwJxtHF6voWSsXIpuKh6 mfIrzxPmuCG8l WVUafqpmNZYctA6yYYLor OTzeBfdJF5mYRQkxrdzs9 90ReIaZXT4HJZgnLRjB7H pzL8bScNwAOLt VWKiR4EquBPoYOnrM913H WsnOiN8MJUmedKrV2DpMH BhcRsqIhI4f5D8Jq4EeTF zQ9JiU7i8N2Lb PjwvdHI+TT61ALVmWK03n DIexLKvx8suxLs5VfGiWU KwWXW6uSlfUFrvw6KlFBO aH18daWJgc7M7 YNXohXrspXMhTmMerLZ2l V4uEAofmmgtx3ancxouJf fzb4kfyr20hM55H52iNHy pZHRoPSIzMCUi YZImhJvznj8eiT1gJg7+P VIvmNZ3sEO4xP7dBvXrJy H8GEmgE301PkKzvAWdAai xw4ptb5rwoKl2 HhPxBJLwotQlaCmrVDO5r 4VwHz48F23bAHduLONyCZ XsWCGnXMXruJrebu9flZ3 wIi8+YC9yk4fh tj09dR72jMF+AARhGXI7l TyoSJksLLFujO7eUPiqJh G6EQXcKxYkjS71iFYaSQd hLj2stMpbdDec MD9sVXKqrkcij927YiEyz 1vfHVOrqBFsGGuoNCX5M9 3yw8X2QVIoHRMgMGB2xKN 8zF7mvAultvhq bGVmdDsgdmVydGljYWwtY WypP941WESjgIzeXpHblV AlO6bsxgQMKD5pKvtrmYS +PUSaGNQ4fBjy HGxdCBSpfQ9tLCCzN5i6I wHcXwZ2NBaaS0OxrvE1DB NphFWtMTCpfCTVfQ2znay hi4oiaftgJeTo MIFhJKq7ERl3JCYbpUonC kYmHFP2VnC2AVV3jQUrzU 0cqEffqcovfA8zJgc+Rkl OOjwvdGQ+PHRk UOE9gHnxDQqxZQKezN9jM QGpH3w5JbTqRkE3BXhnT0 VjkkJ8KGTmbXUtEGWgoVE IqE6aqljbh6ss rhnyHmYsAUXySCr9VUp8P YVtkMpaXuVeFNG2PmX1SR Q7fHFbqW8apQqyfgzpjV5 wOyc+TVJOOjwv dGQ+BBArBVE7eUtkDOvgF RAfmM8oKSPyS4y8XgDeHa U2ZGrdX4RpjzM9RAPvhWN aRYUdfJULcK5l qcnfh3gnhpqfRyRsJRSuI An3LZb5FOAxlFasEtXuLN Z4KhQ4ONN2cIFmgL1bqJh cdmzygW8hJzl+ SLB6RGQ8UM12UC69J1NnI jwvdGFibGU+PHRhYmxlIH dpZHRoPScxMDAlJyBzdHl bMJ2fHe2kTFCk LWN (more content not included)... Normal [facility] C Urineon 01-28-2025 C Urine Urine Culture ordere d as a result of parameters set on specific urine dip and urine microsopic results. Mixed skin, or urogenital daiana. Clinically insignificant [facility] Comment on above: Performed By: #### 7 [id number], [id number], [id number], [id number], [id number] #### [facility] (DEFAULT) [address] [place] [address] Cult,Urineon 01-28-2025 Cult,Urine Specimen Description .BLADDER URINE FROM CYSTOSCOPY Special Requests Site: Urine Culture NO GROWTH Report Status FINAL 01/28/2025 Normal [facility] Comment on above: Performed By: #### B MP #### [address] [address] Branch Controller: Alejandro Salazar MD Culture, Urineon 01-28-2025 Microorganism identified Cx Nom (Unsp spec) NO GROWTH [facility] comment (Unsp spec) [Interp] Site: Urine [facility] Specimen Description .BLADDER URINE FROM CYSTOSCOPY [facility] Basic Metabolic Profon 01-27 Anion gap [Moles/Vol] 9 mmol/L Normal 9-16 [facility] Comment on above: Performed By: #### B MP #### [address] [address] Branch Controller: Alejandro Salazar MD Calcium [Mass/Vol] 8.3 mg/dL Low 8.6-10.4 [facility] Comment on above: Performed By: #### B MP #### [facility] [employer] [address] [place] [address] Branch Controller: Alejandro Salazar MD Chloride [Moles/Vol] 108 mmol/L High 98-107 [facility] Comment on above: Performed By: #### B MP #### [facility] [employer] [address] [place] [address] Branch Controller: Alejandro Salazar MD CO2 [Moles/Vol] 22 mmol/L Normal 20-31 [facility] Comment on above: Performed By: #### B MP #### [facility] [employer] [address] [place] [address] Branch Controller: Alejandro Salazar MD Creatinine [Mass/Vol] 0.7 mg/dL Normal 0.6-0.9 [facility] Comment on above: Performed By: #### B MP #### [address] [address] Branch Controller: Alejandro Salazar MD GFR/1.73 sq M.predicted among non-blacks MDRD (S/P/Bld) [Vol rate/Area] mL/min/{1.73_m2} Normal >60 [facility] Comment on above: Result Comment: These [...] secretion. Performed By: #### B MP #### [facility] [employer] [address] [place] [address] Branch Controller: Alejandro Salazar MD Glucose [Mass/Vol] 85 mg/dL Normal 74-99 [facility] Comment on above: Performed By: #### B MP #### [facility] [employer] [address] [place] [address] Branch Controller: Alejandro Salazar MD Potassium [Moles/Vol] 3.9 mmol/L Normal 3.7-5.3 [facility] Comment on above: Performed By: #### B MP #### [facility] [employer] [address] [place] [address] Branch Controller: Alejandro Salazar MD Sodium [Moles/Vol] 139 mmol/L Normal 136-145 [facility] Comment on above: Performed By: #### B MP #### [facility] [employer] [address] [place] [address] Branch Controller: Alejandro Salazar MD Urea nitrogen [Mass/Vol] 11 mg/dL Normal 6-20 [facility] Comment on above: Performed By: #### B #### [facility] [employer] [address] [place] [address] Branch Controller: Alejandro Salazar MD Basic metabolic panelon 01-17 Anion gap [Moles/Vol] 9 mmol/L 9 - 16 mmol/L [facility] Calcium [Mass/Vol] 8.3 mg/dL Low 8.6 - 10. 4 mg/dL [facility] Chloride [Moles/Vol] 108 mmol/L High 98 - 10 7 mmol/L [facility] CO2 [Moles/Vol] 22 mmol/L 20 - 31 mmol/L [facility] Creatinine [Mass/Vol] 0.7 mg/dL 0.6 - 0.9 mg/dL [facility] Est, Glom Filt Rate - PINF [facility] Comment on above: These results are not [...] [Mass/Vol] 85 mg/dL 74 - 99 mg/dL [facility] Interpretation and review of laboratory results Abnormal [facility] Potassium [Moles/Vol] 3.9 mmol/L 3.7 - 5.3 mmol/L [facility] Sodium [Moles/Vol] 139 mmol/L 136 - 145 mmol/L [facility] Urea nitrogen [Mass/Vol] 11 mg/dL 6 - 20 mg/dL [facility] CBC auto differentialon 01-17 Basophils (Bld) [#/Vol] 0.04 10*3/uL [facility] Basophils/100 WBC (Bld) 1 % 0 - 2 % [facility] Eosinophils (Bld) [#/Vol] 0.14 10*3/uL [facility] Eosinophils/100 WBC (Bld) 4 % 1 - 4 % [facility] Erythrocyte distribution width (RBC) [Ratio] 12.6 % 11.8 - 14.4 % [facility] Hematocrit (Bld) [Volume fraction] 34.2 % Low 36.3 - 47.1 % [facility] Hemoglobin (Bld) [Mass/Vol] 10.7 g/dL Low 11.9 - 15.1 g/dL [facility] Immature granulocytes (Bld) [#/Vol] [facility] Immature granulocytes/100 WBC (Bld) 0 % 0 [facility] Interpretation and review of laboratory results Abnormal [facility] Lymphocytes/100 WBC (Bld) 55 % High 24 - 43 % [facility] Lymphocytes/100 WBC (Bld) 2.11 % [facility] MCH (RBC) [Entitic mass] 27.1 pg 25.2 - 33.5 pg [facility] MCHC (RBC) [Mass/Vol] 31.3 g/dL 28.4 - 34.8 g/dL [facility] MCV (RBC) [Entitic vol] 86.6 fL 82.6 - 102.9 fL [facility] Monocytes/100 WBC (Bld) 9 % 3 - 12 % [facility] Monocytes/100 WBC (Bld) 0.35 % [facility] Neutrophils/100 WBC (Bld) 31 % Low 36 - 65 % [facility] Nucleated RBC/100 WBC (Bld) [Ratio] 0 % 0.0 per 100 WBC [facility] Platelet mean volume (Bld) [Entitic vol] 9.1 fL 8.1 - 13.5 fL [facility] Platelets (Bld) [#/Vol] 238 10*3/uL [facility] RBC (Bld) [#/Vol] 3.95 10*6/uL 3.95 - 5.1 1 m/uL [facility] Segmented neutrophils/100 WBC (Bld) 1.21 % Low [facility] WBC other (Bld) [#/Vol] 3.9 [facility] CBC with Diffon 01-27-2025 Abs. Basophil 0.04 k/uL Normal 0.00-0.20 [facility] Comment on above: Performed By: #### B MP #### [address] [address] Branch Controller: Alejandro Salazar MD Abs.Imm.Granulocyte <0.03 Normal 0.00-0.30 [facility] Comment on above: Performed By: #### B MP #### [place] [address] Branch Controller: Alejandro Salazar MD Abs.Neutrophil (Seg) 1.21 k/uL Low 1.50-8.10 [facility] Comment on above: Performed By: #### B MP #### [place] [address] Branch Controller: Alejandro Salazar MD Basophils/100 WBC (Bld) 1 % Normal 0-2 [facility] Comment on above: Performed By: #### B MP #### [address] [address] Branch Controller: Alejandro Salazar MD Eosinophils (Bld) [#/Vol] 0.14 10*3/uL Normal 0.00-0.44 [facility] Comment on above: Performed By: #### B MP #### [place] [address] Branch Controller: Alejandro Salazar MD Eosinophils/100 WBC (Bld) 4 % Normal 1-4 [facility] Comment on above: Performed By: #### B MP #### [address] [address] Branch Controller: Alejandro Salazar MD Erythrocyte distribution width (RBC) [Ratio] 12.6 % Normal 11.8-14.4 [facility] Comment on above: Performed By: #### B MP #### [address] [address] Branch Controller: Alejandro Salazar MD Hematocrit (Bld) [Volume fraction] 34.2 % Low 36.3-47.1 [facility] Comment on above: Performed By: #### B MP #### [address] [address] Branch Controller: Alejandro Salazar MD Hemoglobin (Bld) [Mass/Vol] 10.7 g/dL Low 11.9-15.1 [facility] Comment on above: Performed By: #### B MP #### [address] [address] Branch Controller: Alejandro Salazar MD Immature granulocytes/100 WBC (Bld) 0 % Normal 0 [facility] Comment on above: Performed By: #### B MP #### [address] [address] Branch Controller: Alejandro Salazar MD Lymphocytes (Bld) [#/Vol] 2.11 10*3/uL Normal 1.10-3.70 [facility] Comment on above: Performed By: #### B MP #### [address] [address] Branch Controller: Alejandro Salazar MD Lymphocytes/100 WBC (Bld) 55 % High 24-43 [facility] Comment on above: Performed By: #### B MP #### [address] [address] Branch Controller: Alejandro Salazar MD MCH (RBC) [Entitic mass] 27.1 pg Normal 25.2-33.5 [facility] Comment on above: Performed By: #### B MP #### [address] [address] Branch Controller: Alejandro Salazar MD MCHC (RBC) [Mass/Vol] 31.3 g/dL Normal 28.4-34.8 [facility] Comment on above: Performed By: #### B MP #### [address] [address] Branch Controller: Alejandro Salazar MD MCV (RBC) [Entitic vol] 86.6 fL Normal 82.6-102.9 [facility] Comment on above: Performed By: #### B MP #### [place] [address] Branch Controller: Alejandro Salazar MD Monocytes (Bld) [#/Vol] 0.35 10*3/uL Normal 0.10-1.20 [facility] Comment on above: Performed By: #### B MP #### [place] [address] Branch Controller: Alejandro Salazar MD Monocytes/100 WBC (Bld) 9 % Normal 3-12 [facility] Comment on above: Performed By: #### B MP #### [address] [address] Branch Controller: Alejandro Salazar MD Neutrophil (Seg) 31 % Low 36-65 [facility] Comment on above: Performed By: #### B MP #### [place] [address] Branch Controller: Alejandro Salazar MD NRBC Automated 0.0 per 100 WBC Normal 0.0 [facility] Comment on above: Performed By: #### B MP #### [place] [address] Branch Controller: Alejandro Salazar MD Platelet mean volume (Bld) [Entitic vol] 9.1 fL Normal 8.1-13.5 [facility] Comment on above: Performed By: #### B MP #### [employer] [address] [place] [address] Branch Controller: Alejandro Salazar MD Platelets (Bld) [#/Vol] 238 10*3/uL Normal 138-453 [facility] Comment on above: Performed By: #### B MP #### [facility] [address] [place] [address] Branch Controller: Alejandro Salazar MD RBC (Bld) [#/Vol] 3.95 10*6/uL Normal 3.95-5.11 [facility] Comment on above: Performed By: #### B MP #### [facility] [employer] [address] [place] [address] Branch Controller: Alejandro Salazar MD WBC (Bld) [#/Vol] 3.9 10*3/uL Normal 3.5-11.3 [facility] Comment on above: Performed By: #### B MP #### [facility] [address] [place] [address] Branch Controller: Alejandro Salazar MD Consent Formson 01-27-2025 Consent Forms [id number] Normal [facility] Cult,Urineon 01-27-2025 Cult,Urine Specimen Description .URINE Culture NO SIGNIFICANT GROWTH Report Status FINAL 01/27/2025 Normal [facility] Comment on above: Performed By: #### B MP #### [facility] [place] [address] Branch Controller: Alejandro Salazar MD Culture, Urineon 01-27-2025 Microorganism identified Cx Nom (Unsp spec) NO SIGNIFICANT GROWTH [facility] [employer] Specimen Description .[facility]INE [facility] [employer] FLUORO FOR SURGICAL PROCEDUR ESon 01-27-2025 FLUORO FOR SURGICAL PROCEDURES Radiology exam is complete. No Radiologist dictation. Please follow up with ordering provider. Final result Normal [facility] Guidance-- during surgeryon 01-27-2025 Radiology exam is complete. No Radiologist dictation. Please follow up with ordering provider. PN RIS CONSOLIDATED .Auto Diff 1on 01-26-2025 Auto Sharp % 10 % Normal 1-12 [facility] Comment on above: Performed By: #### 7 [id number], [id number], [id number], [id number] #### [facility] (DEFAULT) [address] [place] [address] Baso Abs# 0.0 x10 Normal 0.0-0.2 [facility] Comment on above: Performed By: #### 7 [id number], [id number], [id number], [id number], [id number] #### [facility] (DEFAULT) [address] [place] [address] Basophils/100 WBC (Bld) 0.7 % Normal 0.2-2.0 [facility] Comment on above: Performed By: #### 7 [id number], [id number], [id number], [id number], [id number] #### [facility] (DEFAULT) [address] [place] [address] Eos Abs# 0.1 x10 Normal 0.0-0.4 [facility] Comment on above: Performed By: #### 7 [id number], [id number], [id number], [id number], [id number] #### [facility] (DEFAULT) [address] [place] [address] Eosinophils/100 WBC (Bld) 2.4 % Normal 0.9-4.0 [facility] Comment on above: Performed By: #### 7 [id number], [id number], [id number], [id number], [id number] #### [facility] (DEFAULT) [address] [place] [address] 65690 Lymph Abs# 1.8 x10 Normal 1.3-2.9 [facility] Comment on above: Performed By: #### 7 [id number], [id number], [id number], [id number], [id number] #### [facility] (DEFAULT) [address] [place] [address] 33463 Lymphocytes/100 WBC (Bld) 38 % Normal 14-48 [facility] Comment on above: Performed By: #### 7 [id number], [id number], [id number], [id number], [id number] #### [facility] (DEFAULT) [address] [place] [address] 39042 Sharp Abs# 0.5 x10 Normal 0.0-0.8 [facility] Comment on above: Performed By: #### 7 [id number], [id number], [id number], [id number], [id number] #### [facility] (DEFAULT) [address] [place] [address] 57345 Neut Abs# 2.4 x10 Normal 1.5-9.2 [facility] Comment on above: Performed By: #### 7 [id number], [id number], [id number], [id number], [id number] #### [facility] (DEFAULT) [address] [place] [address] 94589 Neutrophils/100 WBC (Bld) 49 % Normal 44-88 [facility] Comment on above: Performed By: #### 7 [id number], [id number], [id number], [id number], [id number] #### [facility] (DEFAULT) [address] [place] [address] 88768 Basic Metabolic Panelon 04-1 0 Anion gap [Moles/Vol] 12 mmol/L 9 - 16 mmol/L [facility] Calcium [Mass/Vol] 8.6 mg/dL 8.6 - 10. 4 mg/dL [facility] Chloride [Moles/Vol] 106 mmol/L 98 - 10 7 mmol/L [facility] CO2 [Moles/Vol] 21 mmol/L 20 - 31 mmol/L [facility] Creatinine [Mass/Vol] 0.9 mg/dL 0.6 - 0.9 mg/dL [facility] Est, Glom Filt Rate 87 - PINF [facility] Comment on above: These results are not [...] 126 mg/dL High 74 - 99 mg/dL [facility] Interpretation and review of laboratory results Abnormal [facility] Potassium [Moles/Vol] 3.7 mmol/L 3.7 - 5.3 mmol/L [facility] Sodium [Moles/Vol] 139 mmol/L 136 - 145 mmol/L [facility] Urea nitrogen [Mass/Vol] 12 mg/dL 6 - 20 mg/dL [facility] Basic Metabolic Profon 01-26 Anion gap [Moles/Vol] 12 mmol/L Normal 9-16 [facility] Comment on above: Performed By: #### B MP #### [facility] [employer] [address] [place] [address] Branch Controller: Alejandro Salazar MD Calcium [Mass/Vol] 8.6 mg/dL Normal 8.6-10.4 [facility] Comment on above: Performed By: #### B MP #### [facility] [employer] [address] [place] [address] Branch Controller: Alejandro Salazar MD Chloride [Moles/Vol] 106 mmol/L Normal 98-107 [facility] Comment on above: Performed By: #### B MP #### [facility] [address] [place] [address] Branch Controller: Alejandro Salazar MD CO2 [Moles/Vol] 21 mmol/L Normal 20-31 [facility] Comment on above: Performed By: #### B MP #### [facility] [employer] [address] [place] [address] Branch Controller: Alejandro Salazar MD Creatinine [Mass/Vol] 0.9 mg/dL Normal 0.6-0.9 [facility] Comment on above: Performed By: #### B MP #### [address] [address] Branch Controller: Alejandro Salazar MD GFR/1.73 sq M.predicted among non-blacks MDRD (S/P/Bld) [Vol rate/Area] 87 mL/min/{1.73_m2} Normal >60 [facility] Comment on above: Result Comment: These [...] secretion. Performed By: #### B MP #### [place] [address] Branch Controller: Alejandro Salazar MD Glucose [Mass/Vol] 126 mg/dL High 74-99 [facility] Comment on above: Performed By: #### B MP #### [address] [address] Branch Controller: Alejandro Salazar MD Potassium [Moles/Vol] 3.7 mmol/L Normal 3.7-5.3 [facility] Comment on above: Performed By: #### B MP #### [facility] [employer] [address] [place] [address] Branch Controller: Alejandro Salazar MD Sodium [Moles/Vol] 139 mmol/L Normal 136-145 [facility] Comment on above: Performed By: #### B MP #### [facility] [employer] [address] [place] [address] Branch Controller: Alejandro Salazar MD Urea nitrogen [Mass/Vol] 12 mg/dL Normal 6-20 [facility] Comment on above: Performed By: #### B MP #### [employer] [address] [place], [place] [id number] Branch Controller: Alejandro Salazar MD [facility] [facility] Erythrocyte distribution width (RBC) [Ratio] 12.7 % 11.8 - 14.4 % [facility] Hematocrit (Bld) [Volume fraction] 38.1 % 36.3 - 47.1 % [facility] Hemoglobin (Bld) [Mass/Vol] 12 g/dL 11.9 - 15.1 g/dL [facility] MCH (RBC) [Entitic mass] 27.9 pg 25.2 - 33.5 pg [facility] MCHC (RBC) [Mass/Vol] 31.5 g/dL 28.4 - 34.8 g/dL [facility] MCV (RBC) [Entitic vol] 88.6 fL 82.6 - 102.9 fL [facility] Nucleated RBC/100 WBC (Bld) [Ratio] 0 % 0.0 per 100 WBC [facility] Platelet mean volume (Bld) [Entitic vol] 9 fL 8.1 - 13.5 fL [facility] Platelets (Bld) [#/Vol] 261 10*3/uL [facility] RBC (Bld) [#/Vol] 4.3 10*6/uL 3.95 - 5.1 1 m/uL [facility] WBC other (Bld) [#/Vol] 5.9 [facility] Erythrocyte distribution width (RBC) [Ratio] 12.7 % Normal 11.8-14.4 [facility] Comment on above: Performed By: #### B MP #### [employer] [address] [place], [place] [id number] Branch Controller: Alejandro Salazar MD Hematocrit (Bld) [Volume fraction] 38.1 % Normal 36.3-47.1 [facility] Comment on above: Performed By: #### B MP #### [employer] [address] [place], [place] [id number] Branch Controller: Alejandro Salazar MD Hemoglobin (Bld) [Mass/Vol] 12.0 g/dL Normal 11.9-15.1 [facility] Comment on above: Performed By: #### B MP #### [address] [address] Branch Controller: Alejandro Salazar MD MCH (RBC) [Entitic mass] 27.9 pg Normal 25.2-33.5 [facility] Comment on above: Performed By: #### B MP #### [address] [address] Branch Controller: Alejandro Salazar MD MCHC (RBC) [Mass/Vol] 31.5 g/dL Normal 28.4-34.8 [facility] Comment on above: Performed By: #### B MP #### [address] [address] Branch Controller: Alejandro Salazar MD MCV (RBC) [Entitic vol] 88.6 fL Normal 82.6-102.9 [facility] Comment on above: Performed By: #### B MP #### [address] [address] Branch Controller: Alejandro Salazar MD NRBC Automated 0.0 per 100 WBC Normal 0.0 [facility] Comment on above: Performed By: #### B MP #### [address] [address] Branch Controller: Alejandro Salazar MD Platelet mean volume (Bld) [Entitic vol] 9.0 fL Normal 8.1-13.5 [facility] Comment on above: Performed By: #### B MP #### [address] [address] Branch Controller: Alejandro Salazar MD Platelets (Bld) [#/Vol] 261 10*3/uL Normal 138-453 [facility] Comment on above: Performed By: #### B MP #### [facility] [address] [place] [address] Branch Controller: Alejandro Salazar MD RBC (Bld) [#/Vol] 4.30 10*6/uL Normal 3.95-5.11 [facility] Comment on above: Performed By: #### B MP #### [address] [address] Branch Controller: Alejandro Salazar MD WBC (Bld) [#/Vol] 5.9 10*3/uL Normal 3.5-11.3 [facility] Comment on above: Performed By: #### B MP #### [address] [address] Branch Controller: Alejandro Salazar MD CBC w/ Auto Diffon Erythrocyte distribution width (RBC) [Ratio] 13.6 % Normal 11.5-15.0 [facility] Comment on above: Performed By: #### 7 015835, [id number], 9781270078, 52208584, 044040720 #### [facility] (DEFAULT) [address] [place] [address] Hematocrit (Bld) [Volume fraction] 37.0 % Normal 33.7-40.4 [facility] Comment on above: Performed By: #### 7 513627, [id number], 2526952619, 89553044, 591936193 #### [facility] (DEFAULT) [address] [place] [address] Hemoglobin (Bld) [Mass/Vol] 12.7 g/dL Normal 11.3-15.9 [facility] Comment on above: Performed By: #### 7 969371, 3677391345, 5759691858, 03543817, 301694816 #### [facility] (DEFAULT) [address] [place] [address] Man Diff? Auto Invalid Interpretation Code [facility] Comment on above: Performed By: #### 7 188335, 4097505529, 1199708828, 14427871, 035282465 #### [facility] (DEFAULT) [address] [place] [address] MCH (RBC) [Entitic mass] 29 pg Normal 24-34 [facility] Comment on above: Performed By: #### 7 058161, [id number], 4370671435, 65973858, 480336959 #### [facility] (DEFAULT) [address] [place] [address] MCHC (RBC) [Mass/Vol] 34 g/dL Normal 26-37 [facility] Comment on above: Performed By: #### 7 166892, 5979643973, 4537806742, 71187750, 173418092 #### [facility] (DEFAULT) [address] [place] [address] MCV (RBC) [Entitic vol] 84 fL Normal 81-100 [facility] Comment on above: Performed By: #### 7 364292, 9874034885, 7615213762, 91637553, 979275273 #### [facility] (DEFAULT) [address] [place] [address] Platelet 287 x10 Normal 138-427 [facility] Comment on above: Performed By: #### 7 654010, 1038502547, 3688661479, 01652933, 107581432 #### [facility] (DEFAULT) [address] [place] [address] Platelet mean volume (Bld) [Entitic vol] 7.3 fL Normal 6.3-10.2 [facility] Comment on above: Performed By: #### 7 235606, 5567933510, 8433140559, 20785133, 511915681 #### [facility] (DEFAULT) [address] [place] [address] RBC 4.39 x10 Normal 3.70-5.30 [facility] Comment on above: Performed By: #### 7 572303, 3883542494, 1655087852, 94059565, 488930846 #### [facility] (DEFAULT) [address] [place] [address] WBC 4.8 x10 Normal 3.5-10.5 [facility] Comment on above: Performed By: #### 7 614493, 3790717551, 3765159959, 71942837, 743669717 #### [facility] (DEFAULT) [address] [place] [address] CMP Standardon 01-26-2025 eGFR Non AA >60 Invalid Interpretation Code [facility] Comment on above: Performed By: #### 7 561972, 9115016630, 0418051680, 86679278, 540427620 #### [facility] (DEFAULT) [address] [place] [address] eGFR AA >60 Invalid Interpretation Code [facility] Comment on above: Performed By: #### 7 650922, 4063744870, 7458511885, 97381911, 317236814 #### [facility] (DEFAULT) [address] [place] [address] Albumin [Mass/Vol] 3.7 g/dL Normal 3.5-5.0 [facility] Comment on above: Performed By: #### 7 678198, 2229621989, 5401800577, 85272328, 700559673 #### [facility] (DEFAULT) [address] [place] [address] Albumin/Globulin [Mass ratio] 1.0 {ratio} Low 1.4-2.6 [facility] Comment on above: Performed By: #### 7 004975, 3408763974, 2565437760, 16061548, 220545916 #### [facility] (DEFAULT) [address] [place] [address] Alk Phos 70 IU/L Normal 32-91 [facility] Comment on above: Performed By: #### 7 919641, 5773900930, 5345382817, 35338745, 476363588 #### [facility] (DEFAULT) [address] [place] [address] 10263 ALT [Catalytic activity/Vol] 75.0 U/L High 14.0-54.0 [facility] Comment on above: Performed By: #### 7 203802, 5720521284, 9902174412, 19542405, 429250563 #### [facility] (DEFAULT) [address] [place] [address]31 AST [Catalytic activity/Vol] 27 U/L Normal 15-41 [facility] Comment on above: Performed By: #### 7 615897, 6854865303, 6741840921, 95409664, 571242705 #### [facility] (DEFAULT) [address] [place] [address] Bili Total 0.7 mg/dL Normal 0.3-1.2 [facility] Comment on above: Performed By: #### 7 750641, 4870099910, 7232109661, 71600507, 795844098 #### [facility] (DEFAULT) [address] [place] [address] Creatinine [Mass/Vol] 0.94 mg/dL Normal 0.60-1.30 [facility] Comment on above: Performed By: #### 7 677365, 8532124495, 7680201842, 68164571, 237520206 #### [facility] (DEFAULT) [address] [place] [address] Globulin (S) [Mass/Vol] 3.5 g/dL Normal 1.5-4.3 [facility] Comment on above: Performed By: #### 7 714789, 9448456898, 3195483957, 05662720, 242263697 #### [facility] (DEFAULT) [address] [place] [address] Osmolality 277 mOsm/L Invalid Interpretation Code [facility] Comment on above: Performed By: #### 7 999867, 5892154231, 6642851847, 26008117, 687813264 #### [facility] (DEFAULT) [address] [place] [address] Protein [Mass/Vol] 7.2 g/dL Normal 6.5-8.1 [facility] Comment on above: Performed By: #### 7 212340, 2068548029, 9198640699, 53996071, 369047311 #### [facility] (DEFAULT) [address] [place] [address] Urea nitrogen [Mass/Vol] 13 mg/dL Normal 8-26 [facility] Comment on above: Performed By: #### 7 172883, 4994729629, 1022873843, 47742065, 061168449 #### [facility] (DEFAULT) [address] [place] [address] Urea nitrogen/Creatinine [Mass ratio] 13.8 mg/mg Normal 4.6-16.2 [facility] Comment on above: Performed By: #### 7 856534, 8140378961, 7245449362, 24549549, 020908373 #### [facility] (DEFAULT) [address] [place] [address] Anion gap [Moles/Vol] 13.6 mmol/L Normal 5.0-19.0 [facility] Comment on above: Performed By: #### 7 067711, 7110010989, 7710009323, 75356683, 870835627 #### [facility] (DEFAULT) [address] [place] [address] Calcium [Mass/Vol] 9.4 mg/dL Normal 8.9-10.3 [facility] Comment on above: Performed By: #### 7 949806, 4193017759, 4146809518, 96926489, 396438165 #### [facility] (DEFAULT) [address] [place] [address] Chloride [Moles/Vol] 104 mmol/L Normal 101-111 [facility] Comment on above: Performed By: #### 7 355610, 6500032035, 1194853538, 63695765, 101351336 #### [facility] (DEFAULT) [address] [place] [address] CO2 [Moles/Vol] 25 mmol/L Normal 21-32 [facility] Comment on above: Performed By: #### 7 328589, 6696169002, 9907289079, 97340547, 040178933 #### [facility] (DEFAULT) [address] [place] [address] Glucose [Mass/Vol] 93.0 mg/dL Normal 74.0-118.0 [facility] Comment on above: Performed By: #### 7 837509, 2790634591, 0399952356, 02154150, 879639330 #### [facility] (DEFAULT) [address] [place] [address] Potassium [Moles/Vol] 3.6 mmol/L Normal 3.6-5.1 [facility] Comment on above: Performed By: #### 7 750999, 8249358471, 7723557636, 26916526, 650684863 #### [facility] (DEFAULT) [address] [place] [address] Sodium [Moles/Vol] 139.0 mmol/L Normal 136.0-144.0 [facility] Comment on above: Performed By: #### 7 937364, 5205174681, 9592726935, 91807680, 556762597 #### [facility] (DEFAULT) [address] [place] [address] Abdomen/Pelvis w/o Contra ston 01-26-2025 CT [...] MD 01/26/25 2:00 pm Technologist: Boogie COLE [facility] ED Note-Nursingon 01-26-2025 ED Note-Nursing Pt stated she was seen in [facility] recently and Dr. Plata is requesting records. Pharmacy Clinical Specialist called [facility] to get records faxed. Stated they would be faxing results over. [facility] Extra Blueon 01-26-2025 Tube Collected Yes Invalid Interpretation Code [facility] Comment on above: Performed By: #### 7 924968, 3497977247, 1362732634, 46131731, 342877006 #### [facility] (DEFAULT) [address] [place] [address] Microscopic Urinalysison Bacteria LM Ql (Urine sed) None None [facility] Casts LM.LPF (Urine sed) [#/Area] 2 TO 5 HYALINE Reference range defined for non-centrifuged specimen. [facility] [employer] Epithelial cells LM.HPF (Urine sed) [#/Area] 2 TO 5 [facility] [employer] RBC LM.HPF (Urine sed) [#/Area] TOO NUMEROUS TO COUNT [facility] Comment on above: Reference range defi salty for non-centrifuged specimen. WBC LM.HPF (Urine sed) [#/Area] 20 TO 50 [facility] Test Serum 1on Preg Serum Internal Control OK [facility] Comment on above: Performed By: #### 7 750204, 0976107972, 9561597215, 38791081, 021964720 #### [facility] (DEFAULT) [address] [place] [address] Test Serum Qual Negative [facility] Comment on above: Performed By: #### 7 772220, 1416927925, 4204208670, 76675191, 625601969 #### [facility] (DEFAULT) [address] [place] [address] Stone Analysison 01-26-2025 Calculi description See Note [facility] Comment on above: Result Comment: (NOT E) Specimen consists of one rondon sample. The total weight is less than 2 mg. Performed By: #### A STONE #### [employer] [address] [place] [id number] Branch Controller: Mane Tolbert MD Composition See Note [facility] Comment on above: Result Comment: (NOT [...] composition determined by FTIR analysis. Performed By: [employer] [address] [place] [address] Executive Producer: Jorge Melendrez MD, PhD CLIA Number: [id number] Performed By: #### A STONE #### [employer] [address] [place] [address] Branch Controller: Mane Tolbert MD Mass See Note [facility] Comment on above: Result Comment: (NOT E) Sample mass < 2 mg. Small sample size prevents accurate weight determination. Performed By: #### A STONE #### [employer] [address] [place] [id number] Branch Controller: Mane Tolbert MD Transfer Noteon 01-26-2025 Transfer Note Patient requires transfer to [facility] for a diagnosis of hydronephrosis. 1527- Kylie from [employer] [facility], Tamiko Mercedes NP paged, hospitalist speaks to Dr. Plata, accepts, top gun is open. 1539- Called [facility], sparker and patcher Austin gave 20 minute ETA. 1547- [facility] arrives 1550- [employer] [facility] calls, bed assignment given, room 321 bed 2, report number [id number] 1610- [facility] departs [Electronically Signed on: 01/26/2025 16:28 EDT] MichaelBeth granda RN [Verified on: 01/26/2025 16:28 EDT] Beth Rodriguez RN 1630- Dr. Plata signs physician note, this note was faxed to [facility] at fax number [phone]. [Electronically Signed on: 01/26/2025 16:31 EDT] Beth Rodriguez RN Normal [facility] UA Sjjab3eg 01-26-2025 UA Bacteria Trace Normal [facility] Comment on above: Order Comment: Urina lysis Microscopic order added on by [employer] system. Performed By: #### 7 303673, [id number], 7418604606, 39684783, 614459687 #### [facility] (DEFAULT) [address] Comment. See Comment Invalid Interpretation Code [facility] Comment on above: Order Comment: Urina lysis Microscopic order added on by [employer] system. Result Comment: 4+ S ulfa Crystals present Performed By: #### 7 896043, 0635071301, 7529106873, 64554457, 584429411 #### [facility] (DEFAULT) [address] [place] [address] UA RBC Gross Blood [facility] Comment on above: Order Comment: Urina lysis Microscopic order added on by [employer] system. Performed By: #### 7 619848, 2941313925, 4493867749, 03681123, 620706348 #### [facility] (DEFAULT) [address] [place] [address] UA Squam Epi Moderate Normal [facility] Comment on above: Order Comment: Urina lysis Microscopic order added on by [employer] system. Performed By: #### 7 450435, 3400729982, 8719230950, 37175019, 853155829 #### [facility] (DEFAULT) [address] [place] [address] UA WBC 3-5 [facility] Comment on above: Order Comment: Urina lysis Microscopic order added on by [employer] system. Performed By: #### 7 749496, 0309637198, 0495627919, 87377625, 090012603 #### [facility] (DEFAULT) [address] [place] [address] UA w Culture if Ind Standard on 01-26-2025 Breakpoint UA [facility] Comment on above: Performed By: #### 7 656690, 9684695761, 0260921019, 36622498, 928334767 #### [facility] (DEFAULT) [address] [place] [address] Color (U) Red [facility] Comment on above: Result Comment: Test cannot be satisfactorily determined due to intensely colored urine. Parameters which will be affected are: GLU, BRAIN, URO, KET, BLO, PRO, NIT, LISSA, SG, AND pH. Performed By: #### 7 664603, 5131175917, 1715131038, 77379720, 321168802 #### [facility] (DEFAULT) [address] [place] [address] Culture? Yes [facility] Comment on above: Result Comment: Resu lt created by rule GL_MAGR_ADD_UA_CULT Result created by rule GL_MAGR_ADD_UA_CULT1 Performed By: #### 7 768977, 4903491330, 9324554598, 41282606, 968418852 #### [facility] (DEFAULT) [address] [place] [address] Glucose (U) [Mass/Vol] Negative Normal [facility] Comment on above: Performed By: #### 7 869378, 5531390323, 0043777947, 01963411, 825033065 #### [facility] (DEFAULT) [address] [place] [address] Ketones Ql (U) Negative Normal [facility] Comment on above: Performed By: #### 7 751234, 7998245735, 0181527637, 49790040, 441455993 #### [facility] (DEFAULT) [address] [place] [address] Micro? Indicated Invalid Interpretation Code [facility] Comment on above: Result Comment: Resu lt created by rule GL_MAGR_ADD_UA_MICRO Performed By: #### 7 000679, 7666682351, 2669555790, 22217171, 699337805 #### [facility] (DEFAULT) [address] [place] [address] UA Bilirubin SMALL Abnormal [facility] Comment on above: Performed By: #### 7 017450, 4642572213, 1439846906, 43547971, 286499437 #### [facility] (DEFAULT) [address] [place] [address] UA Blood LARGE Abnormal NEGATIVE [facility] Comment on above: Performed By: #### 7 745839, 4609350124, 4390301968, 06403701, 384643791 #### [facility] (DEFAULT) [address] [place] [address]279 UA Clarity CLOUDY Abnormal CLEAR [facility] Comment on above: Performed By: #### 7 570654, 4475772141, 3792445180, 23996411, 601162774 #### [facility] (DEFAULT) [address] [place] [address] UA Leuk Est MODERATE Abnormal NEGATIVE [facility] Comment on above: Performed By: #### 7 695358, 5116420307, 2605755087, 21063382, 214328279 #### [facility] (DEFAULT) [address] [place] [address]3007 UA Nitrite Negative Normal NEGATIVE [facility] Comment on above: Performed By: #### 7 489436, 0396211253, 8984058633, 39923657, 554223355 #### [facility] (DEFAULT) [address] [place] [address] 94277 UA pH 7.0 Normal 5-8 [facility] Comment on above: Performed By: #### 7 573506, 9792266298, 2565612944, 31369250, 741983637 #### [facility] (DEFAULT) [address] [place] [address] UA Protein 100 Abnormal NEGATIVE [facility] Comment on above: Performed By: #### 7 874149, 8381333877, 3620580639, 73408244, 737575540 #### [facility] (DEFAULT) [address] [place] [address] 36907 UA Spec Grav 1.020 Normal 1.001-1.035 [facility] Comment on above: Performed By: #### 7 773296, 2266988961, 5041829961, 02221559, 386516116 #### [facility] (DEFAULT) [address] [place] [address]15 UA Urobilinogen 0.2 mg/dL Normal 0.2-1.0 [facility] Comment on above: Performed By: #### 7 342679, 4888375891, 4804935841, 11705603, 809252224 #### [facility] (DEFAULT) [address] [place] [address] 28485 Urine Source Clean Catch Normal [facility] Comment on above: Performed By: #### 7 451501, 6240508888, 2387717185, 98787867, 525419585 #### [facility] (DEFAULT) [address] [place], [place] [address] UA w/Reflex Cultureon 2024 Bilirubin, SemiQt,Ur Negative Normal NEG [facility] Comment on above: Performed By: #### U AX, UMICAO #### [facility] [address] [place] [address] Branch Controller: Alejandro Salazar MD Blood, Urine LARGE Abnormal NEG [facility] Comment on above: Performed By: #### U AX, UMICAO #### [facility] [address] [place] [address] Branch Controller: Alejandro Salazar MD Clarity (U) Cloudy Abnormal CLEAR [facility] Comment on above: Performed By: #### U AX, UMICAO #### [facility] [address] [place] [address] 217[address] Branch Controller: Alejandro Salazar MD Color (U) [place] Abnormal YEL [facility] Comment on above: Result Comment: INTE RPRET WITH CAUTION DUE TO INTENSE COLOR OF URINE. Performed By: #### U AX, UMICAO #### [facility] [address] [place] [address] Branch Controller: Alejandro Salazar MD Glucose Ql (U) Negative Normal NEG [facility] Comment on above: Performed By: #### U AX, UMICAO #### [facility] [address] [place] [address] 84322 Branch Controller: Alejandro Salazar MD Ketones Ql (U) Negative Normal NEG [facility] Comment on above: Performed By: #### U AX, UMICAO #### [facility] [address] [place] [address] 10043 Branch Controller: Alejandro Salazar MD Leukocyte esterase Test strip Ql (U) MODERATE Abnormal NEG [facility] Comment on above: Performed By: #### U AX, UMICAO #### [facility] [address] [place] [address] 44687 Branch Controller: Alejandro Salazar MD Nitrite,Ur Negative Normal NEG [facility] Comment on above: Performed By: #### U AX, UMICAO #### [facility] [address] [place] [address] 68608 Branch Controller: Alejandro Salazar MD PH,Ur 6.5 Normal 5.0-8.0 [facility] Comment on above: Performed By: #### U AX, UMICAO #### [facility] [address] [place] [address] 824[address] Branch Controller: Alejandro Salazar MD Protein Ql (U) 2+ mg/dL Abnormal NEG [facility] Comment on above: Performed By: #### U AX, UMICAO #### [facility] [employer] [address] [place] [address] Branch Controller: Alejandro Salazar MD Spec. [place],Ur 1.016 Normal 1.005-1.030 [facility] Comment on above: Performed By: #### U AX, UMICAO #### [facility] [address] [place] [address] 16646 Branch Controller: Alejandro Salazar MD Urobilinogen,Ur Normal Normal 0.0-1.0 [facility] Comment on above: Performed By: #### U AX, UMICAO #### [facility] [employer] [address] [place] [address] 44712 Branch Controller: Alejandro Salazar MD Urinalysis with Reflex to Cu ltureon 01-26-2025 Bilirubin Ql (U) Negative NEGATIVE [facility] [employer] Clarity (U) Cloudy Abnormal Clear [employer] Color (U) [place] Abnormal Yellow [employer] Comment on above: INTERPRET WITH CAUTI ON DUE TO INTENSE COLOR OF URINE. Glucose Test strip (U) [Mass/Vol] Negative NEGATIVE mg/dL [employer] Hemoglobin Auto test strip Ql (U) LARGE Abnormal NEGATIVE [facility] Interpretation and review of laboratory results Abnormal [facility] Ketones (U) [Mass/Vol] Negative NEGATIVE mg/dL [facility] Leukocyte esterase Test strip Ql (U) MODERATE Abnormal NEGATIVE [facility] Nitrite Ql (U) Negative NEGATIVE [facility] pH (U) 6.5 [pH] 5.0 - 8.0 [facility] Protein (U) [Mass/Vol] 2+ Abnormal NEGATIVE mg/dL [facility] Specific gravity (U) [Rel density] 1.016 1.005 - 1.030 [facility] [facility] Urobilinogen Qn (U) Normal 0.0 - 1. 0 EU/dL [facility] Urinalysis,Microon 5 Bacteria None Normal NONE [facility] Comment on above: Performed By: #### U AX UMICAO #### [facility] [employer] [address] [place] [address] [id number] Branch Controller: Alejandro Salazar MD Casts 2 TO 5 HYALINE Normal 0-8 [facility] Comment on above: Result Comment: Refe rence range defined for non-centrifuged specimen. Performed By: #### U AX, UMICAO #### [employer] [address] [place] [address] [id number] Branch Controller: Alejandro Salazar MD Epithelial cells LM Ql (Urine sed) 2 TO 5 Normal 0-5 [facility] Comment on above: Performed By: #### U AX, UMICAO #### [employer] [address] [place] [address] [id number] Branch Controller: Alejandro Salazar MD Urine RBC's TOO NUMEROUS TO COUNT Normal 0-4 [facility] Comment on above: Result Comment: Refe rence range defined for non-centrifuged specimen. Performed By: #### U AX, UMICAO #### [employer] [address] [place] [address] [id number] Branch Controller: Alejandro Salazar MD Urine WBC's 20 TO 50 Normal 0-5 [facility] Comment on above: Performed By: #### U AX, UMFERCHOO #### [address] [address] Branch Controller: Alejandro Salazar MD Cult,Urineon 01-23-2025 Cult,Urine Specimen Description .BLADDER URINE FROM CYSTOSCOPY Special Requests Site: Urine Culture NO GROWTH Report Status FINAL 01/23/2025 Normal [facility] Comment on above: Performed By: #### U RC #### [address] [address] Branch Controller: Alejandro Salazar MD Basic Metabolic Profon 01-22 Anion gap [Moles/Vol] 12 mmol/L Normal 9-16 [facility] Comment on above: Performed By: #### B MP #### [address] [address] Branch Controller: Alejandro Salazar MD Calcium [Mass/Vol] 8.4 mg/dL Low 8.6-10.4 [facility] Comment on above: Performed By: #### B MP #### [address] [address] Branch Controller: Alejandro Salazar MD Chloride [Moles/Vol] 107 mmol/L Normal 98-107 [facility] Comment on above: Performed By: #### B MP #### [address] [address] Branch Controller: Alejandro Salazar MD CO2 [Moles/Vol] 21 mmol/L Normal 20-31 [facility] Comment on above: Performed By: #### B MP #### [address] [address] Branch Controller: Alejandro Salazar MD Creatinine [Mass/Vol] 0.7 mg/dL Normal 0.6-0.9 [facility] Comment on above: Performed By: #### B MP #### [facility] [employer] [address] [place] [address] [phone] Branch Controller: Alejandro Salazar MD GFR/1.73 sq M.predicted among non-blacks MDRD (S/P/Bld) [Vol rate/Area] mL/min/{1.73_m2} Normal >60 [facility] Comment on above: Result Comment: These [...] secretion. Performed By: #### B MP #### [address] [id number] Branch Controller: Alejandro Salazar MD Glucose [Mass/Vol] 94 mg/dL Normal 74-99 [facility] Comment on above: Performed By: #### B MP #### [address] [address] Branch Controller: Alejandro Salazar MD Potassium [Moles/Vol] 4.2 mmol/L Normal 3.7-5.3 [facility] Comment on above: Result Comment: Spec imen hemolysis has exceeded the interference as defined by Denise. Value may be falsely increased. Suggest recollection if clinically indicated. Performed By: #### B MP #### [facility] [address] [place] [id number] Branch Controller: Alejandro Salazar MD Sodium [Moles/Vol] 140 mmol/L Normal 136-145 [facility] Comment on above: Performed By: #### B MP #### [address] [id number] Branch Controller: Alejandro Salazar MD Urea nitrogen [Mass/Vol] 6 mg/dL Normal 6-20 [facility] Comment on above: Performed By: #### B #### [facility] [address] [place] [address] Branch Controller: Alejandro Salazar MD Basic metabolic panelon Anion gap [Moles/Vol] 12 mmol/L 9 - 16 mmol/L [facility] Calcium [Mass/Vol] 8.4 mg/dL Low 8.6 - 10. 4 mg/dL [facility] Chloride [Moles/Vol] 107 mmol/L 98 - 10 7 mmol/L [facility] CO2 [Moles/Vol] 21 mmol/L 20 - 31 mmol/L [facility] Creatinine [Mass/Vol] 0.7 mg/dL 0.6 - 0.9 mg/dL [facility] Est, Fran Zabala Rate - PINF [facility] Comment on above: These results are not [...] [Mass/Vol] 94 mg/dL 74 - 99 mg/dL [facility] Interpretation and review of laboratory results Abnormal [facility] Potassium [Moles/Vol] 4.2 mmol/L 3.7 - 5.3 mmol/L [facility] Comment on above: Specimen hemolysis h as exceeded the interference as defined by Denise. Value may be falsely increased. Suggest recollection if clinically indicated. Sodium [Moles/Vol] 140 mmol/L 136 - 145 mmol/L [facility] Urea nitrogen [Mass/Vol] 6 mg/dL 6 - 20 mg/dL [facility] CBC with Auto Differentialon 01-22-2025 Basophils (Bld) [#/Vol] 0.03 10*3/uL [facility] Basophils/100 WBC (Bld) 1 % 0 - 2 % [facility] Eosinophils (Bld) [#/Vol] [facility] Eosinophils/100 WBC (Bld) 1 % 1 - 4 % [facility] Erythrocyte distribution width (RBC) [Ratio] 12.5 % 11.8 - 14.4 % [facility] Hematocrit (Bld) [Volume fraction] 36.7 % 36.3 - 47.1 % [facility] Hemoglobin (Bld) [Mass/Vol] 11.8 g/dL Low 11.9 - 15.1 g/dL [facility] Immature granulocytes (Bld) [#/Vol] [facility] Immature granulocytes/100 WBC (Bld) 0 % 0 [facility] Interpretation and review of laboratory results Abnormal [facility] Lymphocytes/100 WBC (Bld) 34 % 24 - 43 % [facility] Lymphocytes/100 WBC (Bld) 1.19 % [facility] MCH (RBC) [Entitic mass] 27.6 pg 25.2 - 33.5 pg [facility] MCHC (RBC) [Mass/Vol] 32.2 g/dL 28.4 - 34.8 g/dL [facility] MCV (RBC) [Entitic vol] 85.7 fL 82.6 - 102.9 fL [facility] Monocytes/100 WBC (Bld) 9 % 3 - 12 % [facility] Monocytes/100 WBC (Bld) 0.3 % [facility] Neutrophils/100 WBC (Bld) 55 % 36 - 65 % [facility] Nucleated RBC/100 WBC (Bld) [Ratio] 0 % 0.0 per 100 WBC [facility] Platelet mean volume (Bld) [Entitic vol] 9.1 fL 8.1 - 13.5 fL [facility] Platelets (Bld) [#/Vol] 217 10*3/uL [facility] RBC (Bld) [#/Vol] 4.28 10*6/uL 3.95 - 5.1 1 m/uL [facility] Segmented neutrophils/100 WBC (Bld) 1.96 % [facility] WBC other (Bld) [#/Vol] 3.5 [facility] CBC with Diffon 01-22-2025 Abs. Basophil 0.03 k/uL Normal 0.00-0.20 [facility] Comment on above: Performed By: #### C DP #### [address] [address] Branch Controller: Alejandro Salazar MD Abs. Eosinophil <0.03 Normal 0.00-0.44 [facility] Comment on above: Performed By: #### C DP #### [address] [address] Branch Controller: Alejandro Salazar MD Abs.Imm.Granulocyte <0.03 Normal 0.00-0.30 [facility] Comment on above: Performed By: #### C DP #### [address] [address] Branch Controller: Alejandro Salazar MD Abs.Neutrophil (Seg) 1.96 k/uL Normal 1.50-8.10 [facility] Comment on above: Performed By: #### C DP #### [address] [address] Branch Controller: Alejandro Salazar MD Basophils/100 WBC (Bld) 1 % Normal 0-2 [facility] Comment on above: Performed By: #### C DP #### [address] [address] Branch Controller: Alejandro Salazar MD Eosinophils/100 WBC (Bld) 1 % Normal 1-4 [facility] Comment on above: Performed By: #### C DP #### [address] [address] Branch Controller: Alejandro Salazar MD Erythrocyte distribution width (RBC) [Ratio] 12.5 % Normal 11.8-14.4 [facility] Comment on above: Performed By: #### C DP #### [address] [address] Branch Controller: Alejandro Salazar MD Hematocrit (Bld) [Volume fraction] 36.7 % Normal 36.3-47.1 [facility] Comment on above: Performed By: #### C DP #### [address] [address] Branch Controller: Alejandro Salazar MD Hemoglobin (Bld) [Mass/Vol] 11.8 g/dL Low 11.9-15.1 [facility] Comment on above: Performed By: #### C DP #### [address] [address] Branch Controller: Alejandro Salazar MD Immature granulocytes/100 WBC (Bld) 0 % Normal 0 [facility] Comment on above: Performed By: #### C DP #### [address] [address] Branch Controller: Alejandro Salazar MD Lymphocytes (Bld) [#/Vol] 1.19 10*3/uL Normal 1.10-3.70 [facility] Comment on above: Performed By: #### C DP #### [address] [address] Branch Controller: Alejandro Salazar MD Lymphocytes/100 WBC (Bld) 34 % Normal 24-43 [facility] Comment on above: Performed By: #### C DP #### [address] [address] Branch Controller: Alejandro Salazar MD MCH (RBC) [Entitic mass] 27.6 pg Normal 25.2-33.5 [facility] Comment on above: Performed By: #### C DP #### [address] [address] Branch Controller: Alejandro Salazar MD MCHC (RBC) [Mass/Vol] 32.2 g/dL Normal 28.4-34.8 [facility] Comment on above: Performed By: #### C DP #### [address] [address] Branch Controller: Alejandro Salazar MD MCV (RBC) [Entitic vol] 85.7 fL Normal 82.6-102.9 [facility] Comment on above: Performed By: #### C DP #### [place] [address] Branch Controller: Alejandro Salazar MD Monocytes (Bld) [#/Vol] 0.30 10*3/uL Normal 0.10-1.20 [facility] Comment on above: Performed By: #### C DP #### [place] [address] Branch Controller: Alejandro Salazar MD Monocytes/100 WBC (Bld) 9 % Normal 3-12 [facility] Comment on above: Performed By: #### C DP #### [place] [address] Branch Controller: Alejandro Salazar MD Neutrophil (Seg) 55 % Normal 36-65 [facility] Comment on above: Performed By: #### C DP #### [place] [address] Branch Controller: Alejandro Salazar MD NRBC Automated 0.0 per 100 WBC Normal 0.0 [facility] Comment on above: Performed By: #### C DP #### [place] [address] Branch Controller: Alejandro Salazar MD Platelet mean volume (Bld) [Entitic vol] 9.1 fL Normal 8.1-13.5 [facility] Comment on above: Performed By: #### C DP #### [address] [place] [address] Branch Controller: Alejandro Salazar MD Platelets (Bld) [#/Vol] 217 10*3/uL Normal 138-453 [facility] Comment on above: Performed By: #### C DP #### [address] [place] [address] Branch Controller: Alejandro Salazar MD RBC (Bld) [#/Vol] 4.28 10*6/uL Normal 3.95-5.11 [facility] Comment on above: Performed By: #### C DP #### [address] [address] Branch Controller: Alejandro Salazar MD WBC (Bld) [#/Vol] 3.5 10*3/uL Normal 3.5-11.3 [facility] Comment on above: Performed By: #### C DP #### [address] [address] Branch Controller: Alejandro Salazar MD FLUORO FOR SURGICAL PROCEDUR ESon 01-22-2025 FLUORO FOR SURGICAL PROCEDURES Radiology exam is complete. No Radiologist dictation. Please follow up with ordering provider. Final result Normal [facility] Guidance-- during surgeryon 01-22-2025 Radiology exam is complete. No Radiologist dictation. Please follow up with ordering provider. PN RIS CONSOLIDATED Lactic Acidon 01-22-2025 Lactic Acid, Whole Blood 1 mmol/L 0.7 - 2.1 mmol/L [facility] Lactic Acid,Whole Bl 1.0 mmol/L Normal 0.7-2.1 [facility] Comment on above: Performed By: #### L ACTIC #### [address] [address] Branch Controller: Alejandro Salazar MD PREVIOUS SPECIMENon 01-23-20 [facility] Urine Cultureon 01-21-2025 Bacteria identified Cx Nom (U) ORGANISM: Escherichia coli (O:ESCCOL) Mcneal Count >100,000 Aerobic ANASTASIA Charge (NMIC56) ---- [...] RESISTANT TO ALL B-LACTAM DRUGS. PERFORMED BY: [place] [address] PATHOLOGIST OPERATOR [employer] DAVID TIERNEY M.D. Normal [facility] Comment on above: Performed By: #### C UU #### [address] [place] VOIDING URETHROCYSTOGRAM S AND Ion 01-17-2025 [place] VOIDING URETHROCYSTOGRAM S AND I EXAMINATION: VOIDING CYSTO URETHROGRAM 01/17/2025 7:55 am COMPARISON: None. HISTORY: ORDERING SYSTEM PROVIDED HISTORY: VUR (vesicoureteric reflux) TECHNOLOGIST PROVIDED HISTORY: Is the patient ?->No Reason for Exam: frequent UTI, kidney stones FLUOROSCOPY DOSE AND TYPE: Radiation Exposure Index: DAP 184.02mZmco3, FINDINGS: 600 mL of Cystografin was instilled [...] Casey Sharma MD 01/17/25 Final result Normal [facility] [place] VOIDING URETHROCYSTOGRAM S&Ion 01-17-2025 1. No evidence for vesicoureteric reflux. 2. Small postvoid residual. [facility] RIS CONSOLIDATED EXAMINATION: VOIDING CYSTO URETHROGRAM 01/17/2025 7:55 am COMPARISON: None. HISTORY: ORDERING SYSTEM PROVIDED HISTORY: VUR (vesicoureteric reflux) TECHNOLOGIST PROVIDED HISTORY: Is the patient ?->No Reason for Exam: frequent UTI, kidney stones FLUOROSCOPY DOSE AND TYPE: Radiation Exposure Index: DAP 184.64sFbyq8, FINDINGS: 600 mL of Cystografin was instilled [...] the urethra. There is small postvoid residual. [facility] RIS CONSOLIDATED Casey Sharma MD - 01/17/2025 EXAMINATION: VOIDING CYSTO URETHROGRAM 01/17/2025 7:55 am COMPARISON: None. HISTORY: ORDERING SYSTEM PROVIDED HISTORY: VUR (vesicoureteric reflux) TECHNOLOGIST PROVIDED HISTORY: Is the patient ?->No Reason for Exam: frequent UTI, kidney stones FLUOROSCOPY DOSE AND TYPE: Radiation Exposure Index: DAP 184.42eUbih4, FINDINGS: 600 mL of Cystografin was instilled [...] for vesicoureteric reflux. 2. Small postvoid residual. [facility] Radiology Study observation (narrative) [facility] [place] VOIDING URETHROCYSTOGRAM S&IOrdered By: Casey Sharma on 01-17-2025 [facility] Work Phone: [place] KIDNEY W FLOW [...] Glen Perez MD 01/16/25 Final result Normal [facility] Urine Cultureon 12-02-2024 Bacteria identified Cx Nom (U) 30,000 colonies/ml mixed bacterial skin contaminants 2 Days PERFORMED BY: [place] [address] PATHOLOGIST OPERATOR [employer] DAVID TIERNEY M.D. Normal [facility] Comment on above: Performed By: #### C UU #### [facility] [address] [id number] [facility] Urine cultureOrdered By: Vicente Snyder on 12-02-2024 Bacteria identified Cx Nom (U) Urine culture [facility] Cholesterol [Mass/volume] in Serum or PlasmaOrdered By: Arnulfo Aviles on 04-09-2024 Cholesterol [Mass/Vol] 150 mg/dL Normal 140-200 [facility] Comment on above: Chol less than 200 m g/dl low riskChol 201-239 mg/dl borderline riskChol 240 mg/dl and greater high risk Result Comment: Chol less than 200 mg/dl low risk Chol 201-239 mg/dl borderline risk Chol 240 mg/dl and greater high risk Performed By: #### L IPID, TSH3 wRFLX, [id number] #### [facility] [address] [place], [place] [id number] [facility] Cholesterol in LDL Calc [Mas s/Vol]Ordered By: Arnulfo Aviles on 04-09-2024 Cholesterol in LDL [Mass/Vol] 90 mg/dL 0-100 [facility] Comment on above: LDL ATP III CLASSIFI CATIONLDL less than 100 mg/dL OptimalLDL 100-129 mg/dL Near or above optimalLDL 130-159 mg/dL Borderline highLDL 160-189 mg/dL HighLDL greater than 189 mg/dL Very high Cholesterol in VLDL Calc [Ma ss/Vol]Ordered By: Arnulfo Aviles on 04-09-2024 Cholesterol in VLDL [Mass/Vol] 16 mg/dL [facility] ECG 12 lead ECGon 04-09-2024 ECG 12 lead ECG [facility] [place] [address] [place], [place] [id number] Electrocardiograph Report Signed Patient: Diana Barriga MR#: [id number] : 1990 Acct:[id number] Age/Sex: 33 / F ADM Date: 04/08/24 Loc: 1S Room: [address] [place] [address] Type: ADM IN Attending Dr: Arnulfo Aviles [...] previous ECGs available Confirmed by DENTON BORDEN [facility] ([id number]) on 04/09/2024 3:21:42 PM Referred By: Electronically Signed By:NONA ARRIAGA MD, FACC Transcribed By: MUS Signed By Lg Arriaga MD 04/09/24 1521 Normal [facility] Lipid Panelon 04-09-2024 LDL Cholesterol,Calculate d 90 mg/dL Normal 0-100 [facility] Comment on above: Result Comment: LDL ATP III CLASSIFICATION LDL less than 100 mg/dL Optimal LDL 100-129 mg/dL Near or above optimal LDL 130-159 mg/dL Borderline high LDL 160-189 mg/dL High LDL greater than 189 mg/dL Very high Performed By: #### L IPID, TSH3 wRFLX, [id number] #### [address] Triglyceride w/Reflex 82 mg/dL Normal 0-149 [facility] Comment on above: Result Comment: TRIG ATP III CLASSIFICATION TRIG less than 150 mg/dL Normal TRIG 150-199 mg/dL Borderline high TRIG 200-500 mg/dL High TRIG greater than 500 mg/dL Very high Standard traceable to the Center for Disease Conrtrol and Prevention (CDC) test method. Performed By: #### L IPID, TSH3 wRFLX, [id number] #### [facility] [address] [place] [address] [facility] VLDL CHOLESTEROL 16 mg/dL Normal [facility] Comment on above: Performed By: #### L IPID, TSH3 wRFLX, [id number] #### [facility] [address] [place] [address] Serum or plasma high density lipoprotein (HDL) cholesterol measurementOrdered By: Arnulfo Aviles on 04-09-2024 Cholesterol in HDL [Mass/Vol] 44 mg/dL Normal 23-92 [facility] Comment on above: HDL CHOL ATP-III CLA SSIFICATION Cardiovascular RiskHDL > or equal to 60 mg/dL LOWHDL < 40 mg/dL HIGH Result Comment: HDL CHOL ATP-III CLASSIFICATION Cardiovascular Risk HDL > or equal to 60 mg/dL LOW HDL < 40 mg/dL HIGH Performed By: #### L IPID, TSH3 wRFLX, [id number] #### [facility] [address] [place] [address] Serum or plasma total choles terol/high density lipoprotein (HDL) cholesterol mass ratOrdered By: Arnulfo Aviles on 04-09-2024 Cholesterol.total/Cho lesterol in HDL [Mass ratio] 3.4 {ratio} Normal <5.0 [facility] Comment on above: Performed By: #### L IPID, TSH3 wRFLX, [id number] #### [facility] [address] [place] [address] Thyroid Stim Hormone w/Rflxo n 04-09-2024 Thyroid Stim Hormone w/Rflx 2.01 u[iU]/mL Normal 0.45-5.33 [facility] Comment on above: Performed By: #### L IPID, TSH3 wRFLX, [id number] #### [facility] [address] [place] [address] Thyrotropin [Units/volume] i n Serum or PlasmaOrdered By: Arnulfo Aviles on 04-09-2024 TSH Qn 2.01 m[IU]/L 0.45-5.33 [facility] Triglyceride [Mass/volume] i n Serum or PlasmaOrdered By: Arnulfo Aviles on 04-09-2024 Triglyceride [Mass/Vol] 82 mg/dL 0-149 [facility] Comment on above: TRIG ATP III CLASSIF ICATIONTRIG less than 150 mg/dL NormalTRIG 150-199 mg/dL Borderline highTRIG 200-500 mg/dL High TRIG greater than 500 mg/dL Very highStandard traceable to the Center for Disease Conrtrol and Prevention (CDC) test method. Vitamin D 25 Hydroxy Totalon 04-09-2024 Vitamin D 25 Hydroxy Total 26.2 ng/mL Low 30-100 [facility] Comment on above: Result Comment: THA MIN D STATUS 25(OH)VITAMIN D RANGE (ng/mL) Deficient <20 Insufficient 20 to <30 Sufficient 30 to 100 Reference: Jennifer Tiwari, Mady MARTI, et al. Evaluation,treatment, and prevention of vitamin D deficiency; an Endocrine Society clinical practice guideline. JCEM. 2010; 96(7):1911-30. PERFORMED BY: [place] [address] PATHOLOGIST OPERATOR [employer] AB ALCANTARA M.D. Performed By: #### L IPID, TSH3 wRFLX, [id number] #### [place] [id number] [facility] Vitamin D+Metabolites [Mass/ volume] in Serum or PlasmaOrdered By: Arnulfo Aviles on 04-09-2024 Vitamin D+Metabolites [Mass/Vol] 26.2 ng/mL 30-100 [facility] Comment on above: VITAMIN D STATUS 25( [place])VITAMIN D RANGE (ng/mL) Deficient <20 Insufficient 20 to <30Sufficient 30 to 100Reference: Jennifer Tiwari, Mady MARTI, et al. Evaluation,treatment, and prevention of vitamin D deficiency; an Endocrine Society clinical practice guideline. JCEM. 2010; 96(7):1911-30. Patient Letter FTon 2023 Patient Letter [facility] [place] 04, 2023 DIANA BARRIGA [address] [place] [id number] : 1990 Dear Diana, You missed your [...] [facility] [address], [place] [address] [facility] Lab Reportson 06-05-2023 Lab Reports [id number]#1 .00CD:127 [facility] Reminderson 04-24-2023 Reminders - From: Whitney [...] with the results. duplicate message [facility] Operative Reporton Operative Report [id number]#1. 00CD:127 [facility] RAD - MISCon 04-10-2023 RAD - MISC [id number]#1 .00CD:127 [facility] Lab Reportson 04-06-2023 Lab Reports [id number]#1 .00CD:127 [facility] Lab Reports [id number]#1 .00CD:127 Normal [facility] Lab Reportson 03-23-2023 Lab Reports [id number]#1 .00CD:127 Normal [facility] Lab Reports [id number]#1 .00CD:127 Normal [facility] Lab Reports [id number]#1 .00CD:127 Normal [facility] RAD - CT Reporton 03-23-2023 RAD - CT Report [id number]#1 .00CD:127 Normal [facility] RAD - CT Report [id number]#1 .00CD:127 [facility] Ambulatory Visit Summaryon 0 03-20-2023 Ambulatory Visit Summary ROSS BARRIGACURTIS Hyman :1990 Visit Date:03/20/2023 Ambulatory Visit Instructions Your [...] When: Where: [facility] [address] [place] [address]- Medications What When Instructions Unchanged olanzapine-samidorpha n [...] b (more content not included)... [facility] Consent for Procedure/Surger yon 03-20-2023 Consent for Procedure/Surgery [id number]#1 .00CD:127 [facility] Patient Educationon 03-20-20 23 Patient Education [...] Spinach (cooked), rhubarb, beets, sweet potatoes, and Belgian chard. ? Peanuts. ? Potato chips, indian fries, and baked potatoes with skin on. ? Nuts and nut products. ? Chocolate. ? If you regularly take a diuretic medicine, make sure to eat at least 1 or 2 servings of fruits or vegetables that are high in potassium each day. These include: ? Avocado. ? Banana. ? Buffalo, prune, carrot, or tomato juice. ? Baked [...] fish oil, or vitamin B6. ? Take qtpl-qni-exmcxul and prescription medicines only as told by your health care provider. These include supplements. What foods should I limit? Limit your in (more content not included)... Normal [facility] Office/Clinic Noteon 03-20-2023 Urology Office/Clinic Note [...] Lt kidney pain. Did got to the [facility] ER. DX'd & treated for UTI. (NEG [...] L. Ox slightly elevated. Pt presented to [facility] ER on 03/06/23 due to L [...] mg qd. SEs discussed. Rx sent to [facility]. -Electrolyte panel 4 weeks to the [...] #2. Follow-up With When Contact Information Nona RAYGOZA MD, [facility] [address] [place] [address]- Additional Instructions: schedule R ESWL Patient Education [...] kidney s (more content not included)... Normal [facility] Comment on above: Result Comment: Elec tronically Signed By: Nona RAYGOZA MD\.br\Date and Time Signed: 03/20/23 11:30 EDT\.br\Electronically Co-Signed By: Whitney Collier\.br\Date and Time Co-Signed: 03/20/23 11:28 EDT CBC AUTO DIFFon 02-16-2023 BASO # 0.1 103/ul Normal 0.0-0.1 [facility] Comment on above: Performed By: #### U KJ 24 #### [facility] [address] [address] [address] Ramses Dumas Basophils/100 WBC (Bld) 0.5 % Normal 0.2-2.0 [facility] Comment on above: Performed By: #### U KJ 24 #### [facility] [address] [place] [address] Dr. Ramses Dumas EO # 0.0 103/ul Normal 0.0-0.7 [facility] Comment on above: Performed By: #### U KJ 24 #### [facility] [address] [place] [address] Dr. Ramses Dumas Eosinophils/100 WBC (Bld) 0.4 % Critically low 0.9-7.0 [facility] Comment on above: Performed By: #### U KJ 24 #### [facility] [address] [place] [address] Dr. Ramses Dumas Erythrocyte distribution width (RBC) [Ratio] 13.7 % Normal 11.0-15.0 [facility] Comment on above: Performed By: #### U KJ 24 #### [facility] [address] [place] [address] Dr. Ramses Dumas Hematocrit (Bld) [Volume fraction] 45.1 % Normal 36.0-48.0 [facility] Comment on above: Performed By: #### U KJ 24 #### [facility] [address] [place] [address] Dr. Ramses Dumas Hemoglobin (Bld) [Mass/Vol] 14.3 g/dL Normal 12.0-16.0 [facility] Comment on above: Performed By: #### U KJ 24 #### [facility] [address] [place] [address] Dr. Ramses Dumas IG # 0.02 10e3/ul Normal 0.00-0.03 [facility] Comment on above: Performed By: #### U KJ 24 #### [facility] [address] [place] [address] Dr. Ramses Dumas IG % 0.2 % Normal 0.0-0.5 [facility] Comment on above: Performed By: #### U KJ 24 #### [facility] [address] [place] [address] Dr. Ramses Dumas LYMPH # 2.5 103/ul Normal 1.2-3.8 [facility] Comment on above: Performed By: #### U KJ 24 #### [facility] [address] [place] [address] Dr. Ramses Dumas Lymphocytes/100 WBC (Bld) 26.4 % Normal 20.5-60.0 [facility] Comment on above: Performed By: #### U KJ 24 #### [facility] [address] [place] [address] Dr. Ramses Dumas MANUAL DIFF REQ NO Normal [facility] Comment on above: Performed By: #### U KJ 24 #### [facility] [address] [place] [address] Dr. Ramses Dumas MCH (RBC) [Entitic mass] 25.6 pg Critically low 26.7-34.0 [facility] Comment on above: Performed By: #### U KJ 24 #### [facility] [address] [place] [address] Dr. Ramses Dumsa MCHC (RBC) [Mass/Vol] 31.7 g/dL Normal 29.9-35.2 [facility] Comment on above: Performed By: #### U KJ 24 #### [facility] [address] [place] [address] Dr. Ramses Dumas MCV (RBC) [Entitic vol] 80.7 fL Critically low 81.0-99.0 [facility] Comment on above: Performed By: #### U KJ 24 #### [facility] [address] [place] [address] Dr. Ramses Dumas MONO # 0.7 103/ul Normal 0.3-0.8 [facility] Comment on above: Performed By: #### U KJ 24 #### [facility] [address] [place] [address] Dr. Ramses Dumas Monocytes/100 WBC (Bld) 7.6 % Normal 1.7-12.0 [facility] Comment on above: Performed By: #### U KJ 24 #### [facility] [address] [place] [address] Dr. Ramses Dumas NEUT # 6.1 103/ul Normal 1.4-6.5 [facility] Comment on above: Performed By: #### U KJ 24 #### [facility] [address] [place] [address] Dr. Ramses Dumas Neutrophils/100 WBC (Bld) 64.9 % Normal 43.0-75.0 [facility] Comment on above: Performed By: #### U KJ 24 #### [facility] [address] [place] [address] Dr. Ramses Dumas Platelet mean volume (Bld) [Entitic vol] 11.0 fL Normal 9.5-13.5 [facility] Comment on above: Performed By: #### U KJ 24 #### [facility] [address] [place] [address] Dr. Ramses Dumas PLT 270 103/ul Normal 150-450 [facility] Comment on above: Performed By: #### U KJ 24 #### [facility] [address] [place] [address] Dr. Ramses Dumas RBC 5.59 106/ul Critically high 4.20-5.40 [facility] Comment on above: Performed By: #### U KJ 24 #### [facility] [address] [place] [address] Dr. Ramses Dumas WBC 9.4 103/ul Normal 4.0-11.0 [facility] Comment on above: Performed By: #### U KJ 24 #### [facility] [address] [place] [address] ABD/PELV W CONon [...] by: FARTUN NOVOA Date: 2023-02-16 18:21 Normal [facility] ER URINE PROFILEon 3 Bilirubin Ql (U) SMALL Abnormal NEGATIVE [facility] Comment on above: Performed By: #### C MP #### [facility] [address] [place] [address] Dr. Ramses Dumas Clarity (U) CLEAR Normal CLEAR [facility] Comment on above: Performed By: #### C MP #### [facility] [address] [address] [address] Ramses Dumas Color (U) YELLOW Normal YELLOW [facility] Comment on above: Performed By: #### C MP #### [facility] [address] [address] [address] Ramses DELEON A micrscopic examination will be performed if indicated. Normal [facility] Comment on above: Performed By: #### C MP #### [facility] [address] [address] [address] Ramses Dumas Glucose Ql (U) Negative Normal NEGATIVE [facility] Comment on above: Performed By: #### C MP #### [facility] [address] [place] [address] Dr. Ramses Dumas Hemoglobin Ql (U) Negative Normal NEGATIVE [facility] Comment on above: Performed By: #### C MP #### [facility] [address] [place] [address] Dr. Ramses Dumas Ketones Ql (U) 40 mg/dl Abnormal NEGATIVE [facility] Comment on above: Performed By: #### C MP #### [facility] [address] [place] [address] Dr. Ramses Dumas LEUKOCYTES SMALL Abnormal NEGATIVE [facility] Comment on above: Performed By: #### C MP #### [facility] [address] [place] [address] Dr. Ramses Dumas Nitrite Ql (U) Negative Normal NEGATIVE [facility] Comment on above: Performed By: #### C MP #### [facility] [address] [place] [address] Dr. Ramses Dumas pH (U) 7.0 [pH] Normal 5-9 [facility] Comment on above: Performed By: #### C MP #### [facility] [address] [place] [address] Dr. Ramses Dumas Protein (U) [Mass/Vol] 30 mg/dL Abnormal NEGATIVE/ TRACE [facility] Comment on above: Performed By: #### C MP #### [facility] [address] [place] [address] Dr. Ramses Dumas SPEC GRAVITY 1.020 Normal 1.005-<=1.02 5 [facility] Comment on above: Performed By: #### C MP #### [facility] [address] [place] [address] Dr. Ramses Dumas UR MICRO IND INDICATED Normal [facility] Comment on above: Performed By: #### C MP #### [facility] [address] [place] [address] Dr. Ramses Dumas Urobilinogen Qn (U) 4 {Lucero'U}/dL Abnormal 0.2 - 1.0 [facility] Comment on above: Performed By: #### C MP #### [facility] [address] [address] [address] Ramses Dumas LIPASEon 02-16-2023 Lipase [Catalytic activity/Vol] 67.0 U/L Critically low 73.0-393.0 [facility] Comment on above: Performed By: #### U RCX #### [facility] [address] [address] [address] Ramses Dumas LIVER PROFILEon 02-16-2023 Albumin [Mass/Vol] 4.1 g/dL Normal 3.4-5.0 [facility] Comment on above: Performed By: #### U RCX #### [facility] [address] [place] [address] Dr. Ramses Dumas Albumin/Globulin [Mass ratio] 1.0 {ratio} Normal [facility] Comment on above: Performed By: #### U RCX #### [facility] [address] [place] [address] Dr. Ramses Dumas ALP [Catalytic activity/Vol] 85 U/L Normal 46-116 [facility] Comment on above: Performed By: #### U RCX #### [facility] [address] [place] [address] Dr. Ramses Dumas ALT [Catalytic activity/Vol] 61 U/L Critically high 14-59 [facility] Comment on above: Performed By: #### U RCX #### [facility] [address] [place] [address] Dr. Ramses Dumas AST [Catalytic activity/Vol] 43 U/L Critically high 15-37 [facility] Comment on above: Performed By: #### U RCX #### [facility] [address] [place] [address] Dr. Ramses Dumas BILI, CONJUGATED 0.1 mg/dL Normal 0.0-0.2 [facility] Comment on above: Performed By: #### U RCX #### [facility] [address] [place] [address] Dr. Ramses Dumas Bilirubin [Mass/Vol] 0.7 mg/dL Normal 0.2-1.0 [facility] Comment on above: Performed By: #### U RCX #### [facility] [address] [place] [address] Dr. Ramses Dumas Globulin (S) [Mass/Vol] 4.2 g/dL Normal [facility] Comment on above: Performed By: #### U RCX #### [facility] [address] [place] [address] Dr. Ramess Dumas Protein [Mass/Vol] 8.3 g/dL Critically high 6.4-8.2 [facility] Comment on above: Performed By: #### U RCX #### [facility] [address] [place] [address] Dr. Ramses Dumas URon 02-16-2023 , QUAL Negative Normal NEGATIVE [facility] Comment on above: Performed By: #### C MP #### [facility] [address] [place] [address] Dr. Ramses Dumas PROF CHEM 8 (BAS METB)on Anion gap [Moles/Vol] 14.2 mmol/L Normal [facility] Comment on above: Performed By: #### U RCX #### [facility] [address] [place] [address] Dr. Ramses Dumas Calcium [Mass/Vol] 9.5 mg/dL Normal 8.5-10.1 [facility] Comment on above: Performed By: #### U RCX #### [facility] [address] [place] [address] Dr. Ramses Dumas Chloride [Moles/Vol] 102 mmol/L Normal 98-107 [facility] Comment on above: Performed By: #### U RCX #### [facility] [address] [place] [address] Dr. Ramses Dumas CO2 [Moles/Vol] 27.5 mmol/L Normal 21.0-32.0 [facility] Comment on above: Performed By: #### U RCX #### [facility] [address] [place] [address] Dr. Ramses Dumas Creatinine [Mass/Vol] 0.71 mg/dL Normal 0.55-1.02 [facility] Comment on above: Performed By: #### U RCX #### [facility] [address] [address] [address] Ramses Dumas EGFR-AF KITTITIAN >60 Normal >=60 [facility] Comment on above: Performed By: #### U RCX #### [facility] [address] [address] [address] Ramses Dumas EGFR-NON AF KITTITIAN >60 Normal >=60 [facility] Comment on above: Performed By: #### U RCX #### [facility] [address] [address] [address] Ramses Dumas Glucose [Mass/Vol] 90 mg/dL Normal 74-106 [facility] Comment on above: Performed By: #### U RCX #### [facility] [address] [address] [address] Ramses Dumas Potassium [Moles/Vol] 3.7 mmol/L Normal 3.5-5.1 [facility] Comment on above: Performed By: #### U RCX #### [facility] [address] [address] [address] Ramses Dumas Sodium [Moles/Vol] 140 mmol/L Normal 136-145 [facility] Comment on above: Performed By: #### U RCX #### [facility] [address] [address] [address] Ramses Dumas Urea nitrogen [Mass/Vol] 6.0 mg/dL Critically low 7.0-18.0 [facility] Comment on above: Performed By: #### U RCX #### [facility] [address] [address] [address] Ramses Dumas Urea nitrogen/Creatinine [Mass ratio] 8.5 mg/mg Normal [facility] Comment on above: Performed By: #### U RCX #### [facility] [address] [address] [address] Ramses Dumas URINE MICROSCOPIC ONLYon BACTERIA NONE SEEN Normal NONE SEEN [facility] Comment on above: Performed By: #### U KJ 24 #### [facility] [address] [place] [address] Dr. Ramses Dumas Bacteria identified Cx Nom (U) NOT INDICATED Normal [facility] Comment on above: Performed By: #### U KJ 24 #### [facility] [address] [place] [address] Dr. Ramses Dumas CAST NONE SEEN Normal NONE SEEN [facility] Comment on above: Performed By: #### U KJ 24 #### [facility] [address] [place] [address] Dr. Ramses Dumas Crystals LM Nom (Urine sed) NONE SEEN Normal NONE SEEN [facility] Comment on above: Performed By: #### U KJ 24 #### [facility] [address] [place] [address] Dr. Ramses Dumas Epithelial cells LM Ql (Urine sed) FEW Abnormal NONE SEEN /RARE [facility] Comment on above: Performed By: #### U KJ 24 #### [facility] [address] [place] [address] Dr. Ramses Dumas MUCOUS SMALL Abnormal NONE SEEN [facility] Comment on above: Performed By: #### U KJ 24 #### [facility] [address] [place] [address] Dr. Ramses Dumas RBC NONE SEEN Abnormal 0-2 [facility] Comment on above: Performed By: #### U KJ 24 #### [facility] [address] [place] [address] Dr. Ramses Dumas WBC 0-2 Abnormal NONE SEEN [facility] Comment on above: Performed By: #### U KJ 24 #### [facility] [address] [place] [address] Dr. aRmses Dumas PAP ACOG PANEL 2: 30 to 65on 02-10-2023 . . Normal [facility] Comment on above: Result Comment: Perf ormed at: WB Performed By: #### U RCX #### [facility] [address] [place] [address] Dr. Ramses Dumas Age Gdln ACOG Testing 30-65 Normal [facility] Comment on above: Performed By: #### U RCX #### [facility] [address] [address] [address] Ramses Dumas DIAGNOSIS: Comment Normal [facility] Comment on above: Result Comment: NEGA TIVE FOR INTRAEPITHELIAL LESION OR MALIGNANCY. REACTIVE CELLULAR CHANGES AND/OR REPAIR ARE PRESENT. Performed at: WB Performed By: #### U RCX #### [facility] [address] [place] [address] Dr. Ramses Dumas Electronically signed by: Comment Normal [facility] Comment on above: Result Comment: Chelsey Boston MD, Pathologist Performed at: WB Performed By: #### U RCX #### [facility] [address] [place] [address] Dr. Ramses Dumas HPV Aptima Negative Normal Negative [facility] Comment on above: Result Comment: This nucleic acid amplification test detects fourteen high-risk HPV types (16,18,31,33,35,39,45,51,52,56,58,59,66,68) without differentiation. Performed at: =G Performed By: #### U RCX #### [facility] [address] [place] [address] Dr. Ramses Dumas HPV Genotype Reflex Comment Normal [facility] Comment on above: Result Comment: Crit eria not met, HPV Genotype not performed. Performed at: WB Performed By: #### U RCX #### [facility] [address] [place] [address] Dr. Ramses Dumas Methodology: Comment Normal [facility] Comment on above: Result Comment: This liquid based ThinPrep(R) pap test was screened with the use of an image guided system. Performed at: WB Performed By: #### U RCX #### [facility] [address] [place] [address] Dr. Ramses Dumas Note: Comment Normal [facility] Comment on above: Result Comment: The Pap smear is a screening test designed to aid in the detection of premalignant and malignant conditions of the uterine cervix. It is not a diagnostic procedure and should not be used as the sole means of detecting cervical cancer. Both false-positive and false-negative reports do occur. . Performed at: WB Performed By: #### U RCX #### [facility] [address] [address] [address] Ramses Dumas Performed by: Comment Normal [facility] Comment on above: Result Comment: Cuca Briceno, [employer] Cutting Machine Operator (ASCP) Performed at: WB Performed By: #### U RCX #### [facility] [address] [address] [address] Ramses Dumas Specimen adequacy: Comment Normal [facility] Comment on above: Result Comment: Sati sfactory for evaluation. Endocervical and/or squamous metaplastic cells (endocervical component) are present. Performed at: WB Performed By: #### U RCX #### [facility] [address] [place] [address] Dr. Ramses Dumas Lab Reportson 12-29-2022 Lab Reports [id number] .[id number]:127 Normal [facility] RAD - MISCon 12-21-2022 RAD - MISC [id number] .[id number]:127 Normal [facility] OXALATE 24HR URINEon 023 Oxalates, Urine 44 mg/L Normal Undefined [facility] Comment on above: Performed By: #### U KJ 24 #### [facility] [address] [place] [address] Dr. Ramses Dumas Oxalates, Urine 24hr 44 mg/24 hr Critically high 4-31 [facility] Comment on above: Performed By: #### U KJ 24 #### [facility] [address] [place] [address] Dr. Ramses Dumas CITRATE URINE 24HRon 023 Citric Acid, U, 24hr 658 mg/24 hr Normal 320-1240 [facility] Comment on above: Result Comment: This test was developed and its performance characteristics determined by [facility]. It has not been cleared or approved by the Food and Drug Administration. Performed By: #### C ITRATU #### [facility] [address] [address] [address] Ramses Dumas Citric Acid, Urine 658 mg/L Normal Undefined [facility] Comment on above: Performed By: #### C ITRATU #### [facility] [address] [place] [address] Dr. Ramses Dumas MAGNESIUM 24HR URINEon 12-17 Magnesium 24hr Urine 119.0 mg/24 hr Normal 12.0-293.0 [facility] Comment on above: Performed By: #### U RCX #### [facility] [address] [place] [address] Dr. Ramses Dumas Magnesium UR 11.9 mg/dL Normal Not Estab. [facility] Comment on above: Performed By: #### U RCX #### [facility] [address] [place] [address] Dr. Ramses Dumas PHOSPHORUS 24HR URINEon Phosphorus, Urine 81.4 mg/dL Normal Not Estab. [facility] Comment on above: Performed By: #### B LDCX2 #### [facility] [address] [place] [address] Dr. Ramses Dumas Phosphorus, Urine 24hr 814 mg/24 hr Normal 261-1078 [facility] Comment on above: Performed By: #### B LDCX2 #### [facility] [address] [place] [address] Dr. Ramses Dumas PTH INTACTon 12-17-2022 PTH, Intact 46 pg/mL Normal 15-65 [facility] Comment on above: Performed By: #### U RCX #### [facility] [address] [place] [address] Dr. Ramses Dumas URIC ACID 24 HR URINEon Uric Acid, Urine 69.9 mg/dL Normal Not Estab. [facility] Comment on above: Performed By: #### U KJ 24 #### [facility] [address] [place] [address] Dr. Ramses Dumas Uric Acid, Urine 24hr 699.0 mg/24 hr Normal 173.7-902. 1 [facility] Comment on above: Performed By: #### U KJ 24 #### [facility] [address] [address] [address] Ramses Dumas BUNon 12-16-2022 Urea nitrogen [Mass/Vol] 7.0 mg/dL Normal 7.0-18.0 [facility] Comment on above: Performed By: #### C BC #### [facility] [address] [address] [address] Ramses Dumas CALCIUMon 12-16-2022 Calcium [Mass/Vol] 8.8 mg/dL Normal 8.5-10.1 [facility] Comment on above: Performed By: #### C BC #### [facility] [address] [place] [address] Dr. Ramses Dumas CALCIUM 24 HR URINEon 2022 CALC, 24 HR UR 295.0 mg/24 hr Normal 100.0-300.0 [facility] Comment on above: Performed By: #### B LDCX2 #### [facility] [address] [place] [address] Dr. Ramses Dumas UR CALCIUM 29.5 mg/dL Critically high 5.1-21.0 [facility] Comment on above: Performed By: #### B LDCX2 #### [facility] [address] [place] [address] Dr. Ramses Dumas CHLORIDEon 12-16-2022 Chloride [Moles/Vol] 105 mmol/L Normal 98-107 [facility] Comment on above: Performed By: #### C BC #### [facility] [address] [place] [address] Dr. Ramses Dumas CO2on 12-16-2022 CO2 [Moles/Vol] 26.4 mmol/L Normal 21.0-32.0 [facility] Comment on above: Performed By: #### C MP #### [facility] [address] [place] [address] Dr. Ramses Dumas CREA 24 HR URINEon CREA, 24 HR UR 2337.30 mg/24 hr Critically high 800.00 -1,800 .00 [facility] Comment on above: Performed By: #### C VDTBH #### [facility] [address] [address] [address] Ramses Dumas URINE CREAT 233.73 mg/dL Normal 20.00-300.00 [facility] Comment on above: Performed By: #### C VDTBH #### [facility] [address] [address] [address] Ramses Dumas CREATININEon 12-16-2022 Creatinine [Mass/Vol] 0.70 mg/dL Normal 0.55-1.02 [facility] Comment on above: Performed By: #### C MP #### [facility] [address] [address] [address] Ramess Dumas EGFR-AF KITTITIAN >60 Normal >=60 [facility] Comment on above: Performed By: #### C MP #### [facility] [address] [address] [address] Ramses Dumas EGFR-NON AF KITTITIAN >60 Normal >=60 [facility] Comment on above: Performed By: #### C MP #### [facility] [address] [address] [address] Ramses Dumas NAon 12-16-2022 Sodium [Moles/Vol] 139 mmol/L Normal 136-145 [facility] Comment on above: Performed By: #### C MP #### [facility] [address] [address] [address] Ramses Dumas POTASSIUMon 12-16-2022 Potassium [Moles/Vol] 4.0 mmol/L Normal 3.5-5.1 [facility] Comment on above: Performed By: #### C MP #### [facility] [address] [address] [address] Ramses Dumas SODIUM 24 HR URINEon 023 NA, 24 HR UR 193 mmol/24 hr Normal 40-220 [facility] Comment on above: Performed By: #### C VDTBH #### [facility] [address] [address] [address] Ramses Dumas Sodium (U) [Moles/Vol] 193 mmol/L Critically high 30-90 [facility] Comment on above: Performed By: #### C VDTBH #### [facility] [address] [place] [address] Dr. Ramses Dumas UR TOT VOL 1000 ml/24 HR Normal [facility] Comment on above: Performed By: #### C VDTBH #### [facility] [address] [place] [address] Dr. Ramses Dumas Performed By: #### B LDCX2 #### [facility] [address] [place] [address] Dr. Ramses Dumas URIC ACID SERUMon 12-16-2022 Urate [Mass/Vol] 5.6 mg/dL Normal 2.6-6.0 [facility] Comment on above: Performed By: #### C MP #### [facility] [address] [place] [id number] Dr. Ramses Dumas XR KUB 1 VIEWon [...] by: JENNIFER GATES Date: 2022-12-15 08:26 Normal [facility] CBC AUTO DIFFon 11-07-2022 BASO # 0.0 103/ul Normal 0.0-0.1 [facility] Comment on above: Performed By: #### U RCX #### [facility] [address] [place] [address] Dr. Ramses Dumas Basophils/100 WBC (Bld) 0.7 % Normal 0.2-2.0 [facility] Comment on above: Performed By: #### U RCX #### [facility] [address] [place] [address] Dr. Ramses Dumas EO # 0.1 103/ul Normal 0.0-0.7 [facility] Comment on above: Performed By: #### U RCX #### [facility] [address] [address] [address] Ramses Dumas Eosinophils/100 WBC (Bld) 1.9 % Normal 0.9-7.0 [facility] Comment on above: Performed By: #### U RCX #### [facility] [address] [place] [address] Dr. Ramses Dumas Erythrocyte distribution width (RBC) [Ratio] 13.6 % Normal 11.0-15.0 [facility] Comment on above: Performed By: #### U RCX #### [facility] [address] [place] [address] Dr. Ramses Dumas Hematocrit (Bld) [Volume fraction] 37.3 % Normal 36.0-48.0 [facility] Comment on above: Performed By: #### U RCX #### [facility] [address] [place] [address] Dr. Ramses Dumas Hemoglobin (Bld) [Mass/Vol] 12.2 g/dL Normal 12.0-16.0 [facility] Comment on above: Performed By: #### U RCX #### [facility] [address] [place] [address] Dr. Ramses Dumas IG # 0.02 10e3/ul Normal 0.00-0.03 [facility] Comment on above: Performed By: #### U RCX #### [facility] [address] [place] [address] Dr. Ramses Dumas IG % 0.3 % Normal 0.0-0.5 [facility] Comment on above: Performed By: #### U RCX #### [facility] [address] [place] [address] Dr. Ramses Dumas LYMPH # 2.3 103/ul Normal 1.2-3.8 [facility] Comment on above: Performed By: #### U RCX #### [facility] [address] [place], [place] [id number] Dr. Ramses Dumas Lymphocytes/100 WBC (Bld) 39.6 % Normal 20.5-60.0 [facility] Comment on above: Performed By: #### U RCX #### [facility] [address] [place] [address] Dr. Ramses Dumas MANUAL DIFF REQ NO Normal [facility] Comment on above: Performed By: #### U RCX #### [facility] [address] [place] [address] Dr. Ramses Dumas MCH (RBC) [Entitic mass] 26.4 pg Critically low 26.7-34.0 [facility] Comment on above: Performed By: #### U RCX #### [facility] [address] [place] [address] Dr. Ramses Dumas MCHC (RBC) [Mass/Vol] 32.7 g/dL Normal 29.9-35.2 [facility] Comment on above: Performed By: #### U RCX #### [facility] [address] [place] [address] Dr. Ramses Dumas MCV (RBC) [Entitic vol] 80.7 fL Critically low 81.0-99.0 [facility] Comment on above: Performed By: #### U RCX #### [facility] [address] [place] [address] Dr. Ramses Dumas MONO # 0.5 103/ul Normal 0.3-0.8 [facility] Comment on above: Performed By: #### U RCX #### [facility] [address] [place] [address] Dr. Ramses Dumas Monocytes/100 WBC (Bld) 8.0 % Normal 1.7-12.0 [facility] Comment on above: Performed By: #### U RCX #### [facility] [address] [place] [address] Dr. Ramses Dumas NEUT # 2.9 103/ul Normal 1.4-6.5 [facility] Comment on above: Performed By: #### U RCX #### [facility] [address] [place] [address] Dr. Ramses Dumas Neutrophils/100 WBC (Bld) 49.5 % Normal 43.0-75.0 [facility] Comment on above: Performed By: #### U RCX #### [facility] [address] [address] [address] Ramses Dumas Platelet mean volume (Bld) [Entitic vol] 9.0 fL Critically low 9.5-13.5 [facility] Comment on above: Performed By: #### U RCX #### [facility] [address] [address] [address] Ramses Dumas PLT 337 103/ul Normal 150-450 [facility] Comment on above: Performed By: #### U RCX #### [facility] [address] [address] [address] Ramses Dumas RBC 4.62 106/ul Normal 4.20-5.40 [facility] Comment on above: Performed By: #### U RCX #### [facility] [address] [address] [address] Ramses Dumas WBC 5.9 103/ul Normal 4.0-11.0 [facility] Comment on above: Performed By: #### U RCX #### [facility] [address] [address] [address] Ramses Dumas POINT OF CARE GLUCOSEon 10-20 Glucose [Mass/Vol] 115 mg/dL Critically high 74-106 T [facility] Comment on above: Performed By: #### C VDTBH #### [facility] [address] [place] [address] Dr. Ramses Dumas PREG QUANT HCGon 11-07-2022 HCG QUANT <1 Normal [facility] Comment on above: Performed By: #### C VDTBH #### [facility] [address] [place] [address] Dr. Ramses Dumas HCG RANGE SEE BELOW Normal [facility] Comment on above: Result Comment: 5-50 0.2-1 WEEK 50-500 1-2 WEEKS 100-5,000 2-3 WEEKS 500-10,000 3-4 WEEKS 1,000-50,000 4-5 WEEKS 10,000-100,000 5-6 WEEKS 15,000-200,000 6-8 WEEKS 10,000-100,000 2-3 MONTHS Performed By: #### C VDTB #### [facility] [address] [place] [address] Dr. Ramses Dumas US PELVIS AND TRANSVAGon [...] cm right ovarian simple cyst Normal [facility] CBC AUTO DIFFon 11-03-2022 BASO # 0.1 103/ul Normal 0.0-0.1 [facility] Comment on above: Performed By: #### U RCX #### [facility] [address] [place] [address] Dr. Ramses Dumas Basophils/100 WBC (Bld) 0.8 % Normal 0.2-2.0 [facility] Comment on above: Performed By: #### U RCX #### [facility] [address] [place] [address] Dr. Ramses Dumas EO # 0.1 103/ul Normal 0.0-0.7 [facility] Comment on above: Performed By: #### U RCX #### [facility] [address] [place] [address] Dr. Ramses Dumas Eosinophils/100 WBC (Bld) 1.4 % Normal 0.9-7.0 [facility] Comment on above: Performed By: #### U RCX #### [facility] [address] [place] [address] Dr. Ramses Dumas Erythrocyte distribution width (RBC) [Ratio] 13.4 % Normal 11.0-15.0 [facility] Comment on above: Performed By: #### U RCX #### [facility] [address] [place] [address] Dr. Ramses Dumas Hematocrit (Bld) [Volume fraction] 38.8 % Normal 36.0-48.0 [facility] Comment on above: Performed By: #### U RCX #### [facility] [address] [place] [address] Dr. Ramses Dumas Hemoglobin (Bld) [Mass/Vol] 12.7 g/dL Normal 12.0-16.0 [facility] Comment on above: Performed By: #### U RCX #### [facility] [address] [place] [address] Dr. Ramses Dumas IG # 0.01 10e3/ul Normal 0.00-0.03 [facility] Comment on above: Performed By: #### U RCX #### [facility] [address] [place] [address] Dr. Ramses Dumas IG % 0.1 % Normal 0.0-0.5 [facility] Comment on above: Performed By: #### U RCX #### [facility] [address] [place] [address] Dr. Ramses Dumas LYMPH # 1.9 103/ul Normal 1.2-3.8 [facility] Comment on above: Performed By: #### U RCX #### [facility] [address] [place] [address] Dr. Ramses Dumas Lymphocytes/100 WBC (Bld) 26.4 % Normal 20.5-60.0 [facility] Comment on above: Performed By: #### U RCX #### [facility] [address] [place] [address] Dr. Ramses Dumas MANUAL DIFF REQ NO Normal [facility] Comment on above: Performed By: #### U RCX #### [facility] [address] [place] [address] Dr. Ramses Dumas MCH (RBC) [Entitic mass] 26.3 pg Critically low 26.7-34.0 [facility] Comment on above: Performed By: #### U RCX #### [facility] [address] [place] [address] Dr. Ramses Dumas MCHC (RBC) [Mass/Vol] 32.7 g/dL Normal 29.9-35.2 [facility] Comment on above: Performed By: #### U RCX #### [facility] [address] [place] [address] Dr. Ramses Dumas MCV (RBC) [Entitic vol] 80.5 fL Critically low 81.0-99.0 [facility] Comment on above: Performed By: #### U RCX #### [facility] [address] [place] [address] Dr. Ramses Dumas MONO # 0.6 103/ul Normal 0.3-0.8 [facility] Comment on above: Performed By: #### U RCX #### [facility] [address] [place] [address] Dr. Ramses Dumas Monocytes/100 WBC (Bld) 8.2 % Normal 1.7-12.0 [facility] Comment on above: Performed By: #### U RCX #### [facility] [address] [place] [address] Dr. Ramses Dumas NEUT # 4.5 103/ul Normal 1.4-6.5 [facility] Comment on above: Performed By: #### U RCX #### [facility] [address] [place] [address] Dr. Ramses Dumas Neutrophils/100 WBC (Bld) 63.1 % Normal 43.0-75.0 [facility] Comment on above: Performed By: #### U RCX #### [facility] [address] [place] [address] Dr. Ramses Dumas Platelet mean volume (Bld) [Entitic vol] 8.9 fL Critically low 9.5-13.5 [facility] Comment on above: Performed By: #### U RCX #### [facility] [address] [place] [address] Dr. Ramses Dumas PLT 340 103/ul Normal 150-450 [facility] Comment on above: Performed By: #### U RCX #### [facility] [address] [place] [address] Dr. Ramses Dumas RBC 4.82 106/ul Normal 4.20-5.40 [facility] Comment on above: Performed By: #### U RCX #### [facility] [address] [place] [address] Dr. Ramses Dumas WBC 7.1 103/ul Normal 4.0-11.0 [facility] Comment on above: Performed By: #### U RCX #### [facility] [address] [place] [address] Dr. Ramses Dumas [facility] SARS-CoV-2 (COVID-19) RNA FRANCESCA+probe Ql (Unsp spec) Not detected Normal NOT DETECTED [facility] Comment on above: Result Comment: This test is not yet approved or cleared by the [place] FDA. When there are no FDA-approved or cleared tests available, and other criteria are met, FDA can make tests available under an emergency access mechanism called an Emergency Use Authorization (EUA). The EUA for this test is supported by the [place] of Health and Human Service's (HHS's) declaration [...] SARS-CoV-2. Performed By: #### U RCX #### [facility] [address] [address] [address] Ramses Dumas FREE T4on 11-03-2022 Free T4 [Mass/Vol] 0.99 ng/dL Normal 0.76-1.46 [facility] Comment on above: Performed By: #### B LDCX2 #### [facility] [address] [place] [address] Dr. Ramses Dumas GLYCOHEMOGLOBIN A1Con 2022 ADA RECOMMENDATION SEE BELOW Normal [facility] Comment on above: Result Comment: ADA RECOMMENDED LIMIT 4.0 - 6.0 ADA THERAPEUTIC TARGET < 7.0 ACTION SUGGESTED > 7.0 Performed By: #### C VDTBH #### [facility] [address] [place] [address] Dr. Ramses Dumas Glucose [Mass/Vol] 117 mg/dL Normal [facility] Comment on above: Performed By: #### C VDTBH #### [facility] [address] [place] [address] Dr. Ramses Dumas HbA1c (Bld) [Mass fraction] 5.7 % Normal 4.5-6.2 [facility] Comment on above: Performed By: #### C VDTBH #### [facility] [address] [place] [address] Dr. Ramses Dumas PROTIMEon 11-03-2022 INR Coag (PPP) [Relative time] 0.97 {INR} Normal [facility] Comment on above: Performed By: #### U KJ 24 #### [facility] [address] [place] [address] Dr. Ramses Dumas INR GUIDELINES SEE BELOW Normal [facility] Comment on above: Result Comment: TOÑA RED INR: 2.0 - 3.0 CONDITIONS NOT LISTED BELOW 2.5 - 3.5 FOR PROSTHETIC HEART VALVE REPLACEMENT 2.5 - 3.5 RECURRENT THROMBOSIS Performed By: #### U KJ 24 #### [facility] [address] [place] [address] Dr. Ramses Dumas PT Coag (PPP) [Time] 10.3 s Normal 9.0-11.6 [facility] Comment on above: Performed By: #### U KJ 24 #### [facility] [address] [place] [address] Dr. Ramses Dumas PTTon 11-03-2022 aPTT Coag (Bld) [Time] 27.7 s Normal 22.3-36.2 [facility] Comment on above: Performed By: #### U KJ 24 #### [facility] [address] [place] [address] Dr. Ramses Dumas TSHon 11-03-2022 TSH 0.667 uIU/mL Normal 0.358-3.740 [facility] Comment on above: Performed By: #### C VDTBH #### [facility] [address] [place] [address] Dr. Ramses Dumas PREG HCG QUALon 09-18-2022 , QUAL Negative Normal NEGATIVE [facility] Comment on above: Performed By: #### U KJ 24 #### [facility] [address] [place] [address] Dr. Ramses Dumas Covid-19 PCR ([facility])on 08-20 SARS-CoV-2 (COVID-19) RNA FRANCESCA+probe Ql (Unsp spec) Not detected Normal NOT DETECTED [facility] Comment on above: Result Comment: This test is not yet approved or cleared by the [place] FDA. When there are no FDA-approved or cleared tests available, and other criteria are met, FDA can make tests available under an emergency access mechanism called an Emergency Use Authorization (EUA). The EUA for this test is supported by the [place] of Health and Human Service's (HHS's) declaration [...] SARS-CoV-2. Performed By: #### C VDTBH #### [facility] [address] [place] [address] Dr. Ramses Dumas CBC AUTO DIFFon 09-05-2022 BASO # 0.1 103/ul Normal 0.0-0.1 [facility] Comment on above: Performed By: #### B LDCX2 #### [facility] [address] [place] [address] Dr. Ramses Dumas Basophils/100 WBC (Bld) 0.7 % Normal 0.2-2.0 [facility] Comment on above: Performed By: #### B LDCX2 #### [facility] [address] [place] [address] Dr. Ramses Dumas EO # 0.2 103/ul Normal 0.0-0.7 [facility] Comment on above: Performed By: #### B LDCX2 #### [facility] [address] [place] [address] Dr. Ramses Dumas Eosinophils/100 WBC (Bld) 2.2 % Normal 0.9-7.0 [facility] Comment on above: Performed By: #### B LDCX2 #### [facility] [address] [place] [address] Dr. Ramses Dmuas Erythrocyte distribution width (RBC) [Ratio] 13.9 % Normal 11.0-15.0 [facility] Comment on above: Performed By: #### B LDCX2 #### [facility] [address] [place] [address] Dr. Ramses Dumas Hematocrit (Bld) [Volume fraction] 38.8 % Normal 36.0-48.0 [facility] Comment on above: Performed By: #### B LDCX2 #### [facility] [address] [place] [address] Dr. Ramses Dumas Hemoglobin (Bld) [Mass/Vol] 12.6 g/dL Normal 12.0-16.0 [facility] Comment on above: Performed By: #### B LDCX2 #### [facility] [address] [place] [address] Dr. Ramses Dumas IG # 0.03 10e3/ul Normal 0.00-0.03 [facility] Comment on above: Performed By: #### B LDCX2 #### [facility] [address] [place] [address] Dr. Ramses Dumas IG % 0.3 % Normal 0.0-0.5 [facility] Comment on above: Performed By: #### B LDCX2 #### [facility] [address] [place] [address] Dr. Ramses Dumas LYMPH # 2.3 103/ul Normal 1.2-3.8 [facility] Comment on above: Performed By: #### B LDCX2 #### [facility] [address] [place] [address] Dr. Rmases Dumas Lymphocytes/100 WBC (Bld) 21.3 % Normal 20.5-60.0 [facility] Comment on above: Performed By: #### B LDCX2 #### [facility] [address] [place] [address] Dr. Ramses Dumas MANUAL DIFF REQ NO Normal [facility] Comment on above: Performed By: #### B LDCX2 #### [facility] [address] [place] [address] Dr. Ramses Dumas MCH (RBC) [Entitic mass] 26.4 pg Critically low 26.7-34.0 [facility] Comment on above: Performed By: #### B LDCX2 #### [facility] [address] [place] [address] Dr. Ramses Dumas MCHC (RBC) [Mass/Vol] 32.5 g/dL Normal 29.9-35.2 [facility] Comment on above: Performed By: #### B LDCX2 #### [facility] [address] [place] [address] Dr. Ramses Dumas MCV (RBC) [Entitic vol] 81.2 fL Normal 81.0-99.0 [facility] Comment on above: Performed By: #### B LDCX2 #### [facility] [address] [address] [address] Ramses Dumas MONO # 0.8 103/ul Normal 0.3-0.8 [facility] Comment on above: Performed By: #### B LDCX2 #### [facility] [address] [place] [address] Dr. Ramses Dumas Monocytes/100 WBC (Bld) 7.4 % Normal 1.7-12.0 [facility] Comment on above: Performed By: #### B LDCX2 #### [facility] [address] [place] [address] Dr. Ramses Dumas NEUT # 7.3 103/ul Critically high 1.4-6.5 [facility] Comment on above: Performed By: #### B LDCX2 #### [facility] [address] [place] [address] Dr. Ramses Dumas Neutrophils/100 WBC (Bld) 68.1 % Normal 43.0-75.0 [facility] Comment on above: Performed By: #### B LDCX2 #### [facility] [address] [place] [address] Dr. Ramses Dumas Platelet mean volume (Bld) [Entitic vol] 8.8 fL Critically low 9.5-13.5 [facility] Comment on above: Performed By: #### B LDCX2 #### [facility] [address] [place] [address] Dr. Ramses Dumas PLT 323 103/ul Normal 150-450 [facility] Comment on above: Performed By: #### B LDCX2 #### [facility] [address] [place] [address] Dr. Ramses Dumas RBC 4.78 106/ul Normal 4.20-5.40 [facility] Comment on above: Performed By: #### B LDCX2 #### [facility] [address] [place] [address] Dr. Ramses Dumas WBC 10.7 103/ul Normal 4.0-11.0 [facility] Comment on above: Performed By: #### B LDCX2 #### [facility] [address] [place] [address] Dr. Ramses Dumas CULTURE URINEon 09-05-2022 CULTURE URINE Culture Observations : LIGHT GROWTH OF MIXED GENITAL DAIANA. NO POTENTIAL PATHOGENS SEEN. Normal [facility] Comment on above: Performed By: #### U RCX #### [facility] [address] [place] [address] Dr. Ramses Dumas ER URINE PROFILEon 2 Bilirubin Ql (U) Negative Normal NEGATIVE [facility] Comment on above: Performed By: #### B LDCX2 #### [facility] [address] [place] [address] Dr. Ramses Dumas Clarity (U) CLOUDY Abnormal CLEAR [facility] Comment on above: Performed By: #### B LDCX2 #### [facility] [address] [place] [address] Dr. Ramses Dumas Color (U) YELLOW Normal YELLOW [facility] Comment on above: Performed By: #### B LDCX2 #### [facility] [address] [place] [address] Dr. Ramses Dumas ERUAHWalter A micrscopic examination will be performed if indicated. Normal [facility] Comment on above: Performed By: #### B LDCX2 #### [facility] [address] [place] [address] Dr. Ramses Dumas Glucose Ql (U) Negative Normal NEGATIVE [facility] Comment on above: Performed By: #### B LDCX2 #### [facility] [address] [place] [address] Dr. Ramses Dumas Hemoglobin Ql (U) LARGE Abnormal NEGATIVE [facility] Comment on above: Performed By: #### B LDCX2 #### [facility] [address] [place] [address] Dr. Ramses Dumas Ketones Ql (U) Negative Normal NEGATIVE [facility] Comment on above: Performed By: #### B LDCX2 #### [facility] [address] [place] [address] Dr. Ramses Dumas LEUKOCYTES SMALL Abnormal NEGATIVE [facility] Comment on above: Performed By: #### B LDCX2 #### [facility] [address] [place] [address] Dr. Ramses Dumas Nitrite Ql (U) Negative Normal NEGATIVE [facility] Comment on above: Performed By: #### B LDCX2 #### [facility] [address] [place] [address] Dr. Ramses Dumas pH (U) 6.0 [pH] Normal 5-9 [facility] Comment on above: Performed By: #### B LDCX2 #### [facility] [address] [place] [address] Dr. Ramses Dumas Protein (U) [Mass/Vol] 100 mg/dL Abnormal NEGATIVE/ TRACE [facility] Comment on above: Performed By: #### B LDCX2 #### [facility] [address] [place] [address] Dr. Ramses Dumas SPEC GRAVITY >=1.030 Abnormal 1.005-<=1.02 5 [facility] Comment on above: Performed By: #### B LDCX2 #### [facility] [address] [place] [address] Dr. Ramses Dumas UR MICRO IND INDICATED Normal [facility] Comment on above: Performed By: #### B LDCX2 #### [facility] [address] [place] [address] Dr. Ramses Dumas Urobilinogen Qn (U) 0.2 {Lucero'U}/dL Normal 0.2 - 1. 0 [facility] Comment on above: Performed By: #### B LDCX2 #### [facility] [address] [place] [address] Dr. Ramses Dumas URon 09-05-2022 , QUAL Negative Normal NEGATIVE [facility] Comment on above: Performed By: #### B LDCX2 #### [facility] [address] [place] [address] Dr. Ramses Dumas PROF CHEM 8 (BAS METB)on Anion gap [Moles/Vol] 11.7 mmol/L Normal [facility] Comment on above: Performed By: #### C MP #### [facility] [address] [address] [address] Ramses Dumas Calcium [Mass/Vol] 9.1 mg/dL Normal 8.5-10.1 [facility] Comment on above: Performed By: #### C MP #### [facility] [address] [address] [address] Ramses Dumas Chloride [Moles/Vol] 103 mmol/L Normal 98-107 [facility] Comment on above: Performed By: #### C MP #### [facility] [address] [address] [address] Ramses Dumas CO2 [Moles/Vol] 25.9 mmol/L Normal 21.0-32.0 [facility] Comment on above: Performed By: #### C MP #### [facility] [address] [place] [address] Dr. Ramses Dumas Creatinine [Mass/Vol] 0.77 mg/dL Normal 0.55-1.02 [facility] Comment on above: Performed By: #### C MP #### [facility] [address] [address] [address] Ramses Dumas EGFR-AF KITTITIAN >60 Normal >=60 [facility] Comment on above: Performed By: #### C MP #### [facility] [address] [place] [address] Dr. Ramses Dumas EGFR-NON AF KITTITIAN >60 Normal >=60 [facility] Comment on above: Performed By: #### C MP #### [facility] [address] [address] [address] Ramses Dumas Glucose [Mass/Vol] 124 mg/dL Critically high 74-106 [facility] Comment on above: Performed By: #### C MP #### [facility] [address] [place] [address] Dr[address] Ramses Dumas Potassium [Moles/Vol] 3.6 mmol/L Normal 3.5-5.1 [facility] Comment on above: Performed By: #### C MP #### [facility] [address] [address] [address] Ramses Dumas Sodium [Moles/Vol] 137 mmol/L Normal 136-145 [facility] Comment on above: Performed By: #### C MP #### [facility] [address] [place] [address] Dr. Ramses Dumas Urea nitrogen [Mass/Vol] 12.0 mg/dL Normal 7.0-18.0 [facility] Comment on above: Performed By: #### C MP #### [facility] [address] [place] [address] Dr. Ramses Dumas Urea nitrogen/Creatinine [Mass ratio] 15.6 mg/mg Normal [facility] Comment on above: Performed By: #### C MP #### [facility] [address] [place] [address] Dr. Ramses Dumas URINE MICROSCOPIC ONLYon AMORPHOUS CRYSTALS RARE Normal [facility] Comment on above: Performed By: #### B LDCX2 #### [facility] [address] [place] [address] Dr. Ramses Dumas BACTERIA TRACE Abnormal NONE SEEN [facility] Comment on above: Performed By: #### B LDCX2 #### [facility] [address] [place] [address] Dr. Ramses Dumas Bacteria identified Cx Nom (U) INDICATED Normal [facility] Comment on above: Performed By: #### B LDCX2 #### [facility] [address] [place] [address] Dr. Ramses Dumas CA OX CRYSTALS RARE Normal [facility] Comment on above: Performed By: #### B LDCX2 #### [facility] [address] [place] [address] Dr. Ramses Dumas CAST NONE SEEN Normal NONE SEEN [facility] Comment on above: Performed By: #### B LDCX2 #### [facility] [address] [place] [address] Dr. Ramses Dumas Crystals LM Nom (Urine sed) SEEN Abnormal NONE SEEN [facility] Comment on above: Performed By: #### B LDCX2 #### [facility] [address] [place] [address] Dr. Ramses Dumas Epithelial cells LM Ql (Urine sed) FEW Abnormal NONE SEEN /RARE [facility] Comment on above: Performed By: #### B LDCX2 #### [facility] [address] [place] [address] Dr. Ramses Dumas MUCOUS TRACE Abnormal NONE SEEN [facility] Comment on above: Performed By: #### B LDCX2 #### [facility] [address] [place] [address] Dr. Ramses Dumas RBC 50-75 Abnormal 0-2 [facility] Comment on above: Performed By: #### B LDCX2 #### [facility] [address] [place] [address] Dr. Ramses Dumas WBC 20-50 Abnormal NONE SEEN [facility] Comment on above: Performed By: #### B LDCX2 #### [facility] [address] [place] [address] Dr. Ramses Dumas YEAST PRESENT Abnormal NONE SEEN [facility] Comment on above: Performed By: #### B [id number] #### [facility] [address] [place] [address] Dr. Ramses Dumas US KIDNEYSon 09-05-2022 US [...] GLEN PEREZ Date: 2022-09-05 11:00 Normal [facility] CT ABD/PELVIS WO CONon 08-29 CT [...] ERICKA IGLESIAS Date: 2022-08-29 01:10 Normal [facility] CULTURE URINEon 08-29-2022 CULTURE URINE Culture Observations : LIGHT GROWTH OF MIXED GENITAL DAIANA. NO POTENTIAL PATHOGENS SEEN. Normal [facility] Comment on above: Performed By: #### U RCX #### [facility] [address] [place] [address] Dr. Ramses Dumas CBC AUTO DIFFon 08-28-2022 BASO # 0.1 103/ul Normal 0.0-0.1 [facility] Comment on above: Performed By: #### U RCX #### [facility] [address] [address] [address] Ramses Dumas Basophils/100 WBC (Bld) 0.5 % Normal 0.2-2.0 [facility] Comment on above: Performed By: #### U RCX #### [facility] [address] [place] [address] Dr. Ramses Dumas EO # 0.3 103/ul Normal 0.0-0.7 [facility] Comment on above: Performed By: #### U RCX #### [facility] [address] [place] [address] Dr. Ramses Dumas Eosinophils/100 WBC (Bld) 2.3 % Normal 0.9-7.0 [facility] Comment on above: Performed By: #### U RCX #### [facility] [address] [place] [address] Dr. Ramses Dumas Erythrocyte distribution width (RBC) [Ratio] 13.7 % Normal 11.0-15.0 [facility] Comment on above: Performed By: #### U RCX #### [facility] [address] [place] [address] Dr. Ramses Dumas Hematocrit (Bld) [Volume fraction] 36.7 % Normal 36.0-48.0 [facility] Comment on above: Performed By: #### U RCX #### [facility] [address] [place] [address] Dr. Ramses Dumas Hemoglobin (Bld) [Mass/Vol] 12.3 g/dL Normal 12.0-16.0 [facility] Comment on above: Performed By: #### U RCX #### [facility] [address] [place] [address] Dr. Ramses Dumas IG # 0.16 10e3/ul Critically high 0.00-0.[address] [facility] Comment on above: Performed By: #### U RCX #### [facility] [address] [place] [address] Dr. Ramses Dumas IG % 1.1 % Critically high 0.0-0.5 [facility] Comment on above: Performed By: #### U RCX #### [facility] [address] [place] [address] Dr. Ramses Dumas LYMPH # 4.6 103/ul Critically high 1.2-3.8 [facility] Comment on above: Performed By: #### U RCX #### [facility] [address] [place] [address] Dr. Ramses Dumas Lymphocytes/100 WBC (Bld) 31.8 % Normal 20.5-60.0 [facility] Comment on above: Performed By: #### U RCX #### [facility] [address] [place] [address] Dr. Ramses Dumas MANUAL DIFF REQ NO Normal [facility] Comment on above: Performed By: #### U RCX #### [facility] [address] [place] [address] Dr. Ramses Dumas MCH (RBC) [Entitic mass] 26.9 pg Normal 26.7-34.0 [facility] Comment on above: Performed By: #### U RCX #### [facility] [address] [place] [address] Dr. Ramses Dumas MCHC (RBC) [Mass/Vol] 33.5 g/dL Normal 29.9-35.2 [facility] Comment on above: Performed By: #### U RCX #### [facility] [address] [place] [address] Dr. Ramses Dumas MCV (RBC) [Entitic vol] 80.3 fL Critically low 81.0-99.0 [facility] Comment on above: Performed By: #### U RCX #### [facility] [address] [place] [address] Dr. Ramses Dumas MONO # 1.0 103/ul Critically high 0.3-0.8 [facility] Comment on above: Performed By: #### U RCX #### [facility] [address] [place] [address] Dr. Ramses Dumas Monocytes/100 WBC (Bld) 7.0 % Normal 1.7-12.0 [facility] Comment on above: Performed By: #### U RCX #### [facility] [address] [place] [address] Dr. Ramses Dumas NEUT # 8.2 103/ul Critically high 1.4-6.5 [facility] Comment on above: Performed By: #### U RCX #### [facility] [address] [address] [address] Ramses Dumas Neutrophils/100 WBC (Bld) 57.3 % Normal 43.0-75.0 [facility] Comment on above: Performed By: #### U RCX #### [facility] [address] [address] [address] Ramses Dumas Platelet mean volume (Bld) [Entitic vol] 8.6 fL Critically low 9.5-13.5 [facility] Comment on above: Performed By: #### U RCX #### [facility] [address] [place] [address] Dr. Ramses Dumas PLT 395 103/ul Normal 150-450 [facility] Comment on above: Performed By: #### U RCX #### [facility] [address] [place] [address] Dr. Ramses Dumas RBC 4.57 106/ul Normal 4.20-5.40 [facility] Comment on above: Performed By: #### U RCX #### [facility] [address] [place] [address] Dr. Ramses Dumas WBC 14.3 103/ul Critically high 4.0-11.0 [facility] Comment on above: Performed By: #### U RCX #### [facility] [address] [place] [address] Dr. Ramses Dumas ER URINE PROFILEon 2 Bilirubin Ql (U) Negative Normal NEGATIVE [facility] Comment on above: Performed By: #### U KJ 24 #### [facility] [address] [place] [address] Dr. Ramses Dumas Clarity (U) CLEAR Normal CLEAR [facility] Comment on above: Performed By: #### U KJ 24 #### [facility] [address] [place] [address] Dr. Ramses Dumas Color (U) LT. YELLOW Normal YELLOW [facility] Comment on above: Performed By: #### U KJ 24 #### [facility] [address] [address] [address] Ramses DELEON A micrscopic examination will be performed if indicated. Normal [facility] Comment on above: Performed By: #### U KJ 24 #### [facility] [address] [place] [address] Dr. Ramses Dumas Glucose Ql (U) Negative Normal NEGATIVE [facility] Comment on above: Performed By: #### U KJ 24 #### [facility] [address] [address] [address] Ramses Dumas Hemoglobin Ql (U) LARGE Abnormal NEGATIVE [facility] Comment on above: Performed By: #### U KJ 24 #### [facility] [address] [place] [address] Dr. Ramses Dumas Ketones Ql (U) Negative Normal NEGATIVE [facility] Comment on above: Performed By: #### U KJ 24 #### [facility] [address] [place] [address] Dr. Ramses Dumas LEUKOCYTES MODERATE Abnormal NEGATIVE [facility] Comment on above: Performed By: #### U KJ 24 #### [facility] [address] [place] [address] Dr. Ramses Dumas Nitrite Ql (U) Negative Normal NEGATIVE [facility] Comment on above: Performed By: #### U KJ 24 #### [facility] [address] [place] [address] Dr. Ramses Dumas pH (U) 6.5 [pH] Normal 5-9 [facility] Comment on above: Performed By: #### U KJ 24 #### [facility] [address] [address] [address] Ramses Dumas Protein (U) [Mass/Vol] 100 mg/dL Abnormal NEGATIVE/ TRACE [facility] Comment on above: Performed By: #### U KJ 24 #### [facility] [address] [place] [address] Dr. Ramses Dumas SPEC GRAVITY 1.020 Normal 1.005-<=1.02 5 [facility] Comment on above: Performed By: #### U KJ 24 #### [facility] [address] [place] [address] Dr. Ramses Dumas UR MICRO IND INDICATED Normal [facility] Comment on above: Performed By: #### U KJ 24 #### [facility] [address] [place] [address] Dr. Ramses Dumas Urobilinogen Qn (U) 0.2 {Lucero'U}/dL Normal 0.2 - 1. 0 [facility] Comment on above: Performed By: #### U KJ 24 #### [facility] [address] [place] [address] Dr. Ramses Dumas PROF 14(COMP METB)on 022 Albumin [Mass/Vol] 3.3 g/dL Critically low 3.4-5.0 [facility] Comment on above: Performed By: #### C MP #### [facility] [address] [place] [address] Dr. Ramses Dumas Albumin/Globulin [Mass ratio] 0.8 {ratio} Normal [facility] Comment on above: Performed By: #### C MP #### [facility] [address] [place] [address] Dr. Ramses Dumas ALP [Catalytic activity/Vol] 108 U/L Normal 46-116 [facility] Comment on above: Performed By: #### C MP #### [facility] [address] [place] [address] Dr. Ramses Dumas ALT [Catalytic activity/Vol] 103 U/L Critically high 14-59 [facility] Comment on above: Performed By: #### C MP #### [facility] [address] [place] [address] Dr. Ramses Dumas Anion gap [Moles/Vol] 6.6 mmol/L Normal [facility] Comment on above: Performed By: #### C MP #### [facility] [address] [place] [address] Dr. Ramses Dumas AST [Catalytic activity/Vol] 21 U/L Normal 15-37 [facility] Comment on above: Performed By: #### C MP #### [facility] [address] [address] [address] Ramses Dumas Bilirubin [Mass/Vol] 0.2 mg/dL Normal 0.2-1.0 [facility] Comment on above: Performed By: #### C MP #### [facility] [address] [address] [address] Ramses Dumas Calcium [Mass/Vol] 9.2 mg/dL Normal 8.5-10.1 [facility] Comment on above: Performed By: #### C MP #### [facility] [address] [address] [address] Ramses Dumas Chloride [Moles/Vol] 102 mmol/L Normal 98-107 [facility] Comment on above: Performed By: #### C MP #### [facility] [address] [place] [address] Dr. Ramses Dumas CO2 [Moles/Vol] 28.8 mmol/L Normal 21.0-32.0 [facility] Comment on above: Performed By: #### C MP #### [facility] [address] [place] [address] Dr. Ramses Dumas Creatinine [Mass/Vol] 0.92 mg/dL Normal 0.55-1.02 [facility] Comment on above: Performed By: #### C MP #### [facility] [address] [place] [address] Dr. Ramses Dumas EGFR-AF KITTITIAN >60 Normal >=60 [facility] Comment on above: Performed By: #### C MP #### [facility] [address] [place] [address] Dr. Ramses Dumas EGFR-NON AF KITTITIAN >60 Normal >=60 [facility] Comment on above: Performed By: #### C MP #### [facility] [address] [place] [address] Dr. Ramses Dumas Globulin (S) [Mass/Vol] 4.1 g/dL Normal [facility] Comment on above: Performed By: #### C MP #### [facility] [address] [place] [address] Dr. Ramses Dumas Glucose [Mass/Vol] 114 mg/dL Critically high 74-106 T [facility] Comment on above: Performed By: #### C MP #### [facility] [address] [place] [address] Dr. Ramses Dumas Potassium [Moles/Vol] 3.4 mmol/L Critically low 3.5-5.1 [facility] Comment on above: Performed By: #### C MP #### [facility] [address] [place] [address] Dr. Ramses Dumas Protein [Mass/Vol] 7.4 g/dL Normal 6.4-8.2 [facility] Comment on above: Performed By: #### C MP #### [facility] [address] [place] [address] Dr. Ramses Dumas Sodium [Moles/Vol] 134 mmol/L Critically low 136-145 [facility] Comment on above: Performed By: #### C MP #### [facility] [address] [place] [address] Dr. Ramses Dumas Urea nitrogen [Mass/Vol] 11.0 mg/dL Normal 7.0-18.0 [facility] Comment on above: Performed By: #### C MP #### [facility] [address] [place] [address] Dr. Ramses Dumas Urea nitrogen/Creatinine [Mass ratio] 12.0 mg/mg Normal [facility] Comment on above: Performed By: #### C MP #### [facility] [address] [place] [address] Dr. Ramses Dumas URINE MICROSCOPIC ONLYon BACTERIA MODERATE Abnormal NONE SEEN [facility] Comment on above: Performed By: #### U KJ 24 #### [facility] [address] [place] [address] Dr. Ramses Dumas Bacteria identified Cx Nom (U) INDICATED Normal [facility] Comment on above: Performed By: #### U KJ 24 #### [facility] [address] [place] [address] Dr. Ramses Dumas CAST NONE SEEN Normal NONE SEEN [facility] Comment on above: Performed By: #### U KJ 24 #### [facility] [address] [address] [address] Ramses Dumas Crystals LM Nom (Urine sed) NONE SEEN Normal NONE SEEN [facility] Comment on above: Performed By: #### U KJ 24 #### [facility] [address] [place] [address] Dr. Ramses Dumas Epithelial cells LM Ql (Urine sed) RARE Normal NONE SEEN /RARE [facility] Comment on above: Performed By: #### U KJ 24 #### [facility] [address] [place] [address] Dr. Ramses Dumas MUCOUS NONE SEEN Normal NONE SEEN [facility] Comment on above: Performed By: #### U KJ 24 #### [facility] [address] [place] [address] Dr. Ramses Dumas RBC 20-50 Abnormal 0-2 [facility] Comment on above: Performed By: #### U KJ 24 #### [facility] [address] [place] [address] Dr. Ramses Dumas WBC 5-10 Abnormal NONE SEEN [facility] Comment on above: Performed By: #### U KJ 24 #### [facility] [address] [place] [address] Dr. Ramses Dumas CULTURE BLOODon 08-25-2022 Microscopic [...] F Tetracycline >=16 R F Normal [facility] Comment on above: Performed By: #### B LDCX2 #### [facility] [address] [place] [address] Dr. Ramses Dumas Microscopic examination of blood, [...] F Tetracycline >=16 R F Normal [facility] Comment on above: Performed By: #### C BC #### [facility] [address] [place] [address] Dr. Ramses Dumas CBC AUTO DIFFon 08-24-2022 BASO # 0.0 103/ul Normal 0.0-0.1 [facility] Comment on above: Performed By: #### C BC #### [facility] [address] [place] [address] Dr. Ramses Dumas Basophils/100 WBC (Bld) 0.1 % Critically low 0.2-2.0 [facility] Comment on above: Performed By: #### C BC #### [facility] [address] [place] [address] Dr. Ramses Dumas EO # 0.0 103/ul Normal 0.0-0.7 [facility] Comment on above: Performed By: #### C BC #### [facility] [address] [place] [address] Dr. Ramses Dumas Eosinophils/100 WBC (Bld) 0.0 % Critically low 0.9-7.0 [facility] Comment on above: Performed By: #### C BC #### [facility] [address] [place] [address] Dr. Ramses Dumas Erythrocyte distribution width (RBC) [Ratio] 13.5 % Normal 11.0-15.0 [facility] Comment on above: Performed By: #### C BC #### [facility] [address] [address] [address] Ramses Dumas Hematocrit (Bld) [Volume fraction] 33.0 % Critically low 36.0-48.0 [facility] Comment on above: Performed By: #### C BC #### [facility] [address] [address] [address] Ramses Dumas Hemoglobin (Bld) [Mass/Vol] 10.7 g/dL Critically low 12.0-16.0 [facility] Comment on above: Performed By: #### C BC #### [facility] [address] [address] [address] Ramses Dumas IG # 0.04 10e3/ul Critically high 0.00-0.[address] [facility] Comment on above: Performed By: #### C BC #### [facility] [address] [place] [address] Dr. Ramses Dumas IG % 0.4 % Normal 0.0-0.5 [facility] Comment on above: Performed By: #### C BC #### [facility] [address] [address] [address] Ramses Dumas LYMPH # 0.8 103/ul Critically low 1.2-3.8 [facility] Comment on above: Performed By: #### C BC #### [facility] [address] [place] [address] Dr. Ramses Dumas Lymphocytes/100 WBC (Bld) 7.9 % Critically low 20.5-60.0 [facility] Comment on above: Performed By: #### C BC #### [facility] [address] [address] [address] Ramses Dumas MANUAL DIFF REQ NO Normal [facility] Comment on above: Performed By: #### C BC #### [facility] [address] [place] [address] Dr. Ramses Dumas MCH (RBC) [Entitic mass] 26.5 pg Critically low 26.7-34.0 [facility] Comment on above: Performed By: #### C BC #### [facility] [address] [address] [address] Ramses Dumas MCHC (RBC) [Mass/Vol] 32.4 g/dL Normal 29.9-35.2 [facility] Comment on above: Performed By: #### C BC #### [facility] [address] [address] [address] Ramses Dumas MCV (RBC) [Entitic vol] 81.7 fL Normal 81.0-99.0 [facility] Comment on above: Performed By: #### C BC #### [facility] [address] [address] [address] Ramses Dumas MONO # 0.6 103/ul Normal 0.3-0.8 [facility] Comment on above: Performed By: #### C BC #### [facility] [address] [place] [address] Dr. Ramses Dumas Monocytes/100 WBC (Bld) 6.3 % Normal 1.7-12.0 [facility] Comment on above: Performed By: #### C BC #### [facility] [address] [address] [address] Ramses Dumas NEUT # 8.6 103/ul Critically high 1.4-6.5 [facility] Comment on above: Performed By: #### C BC #### [facility] [address] [address] [address] Ramses Dumas Neutrophils/100 WBC (Bld) 85.3 % Critically high 43.0-75.0 [facility] Comment on above: Performed By: #### C BC #### [facility] [address] [address] [address] Ramses Dumas Platelet mean volume (Bld) [Entitic vol] 9.1 fL Critically low 9.5-13.5 [facility] Comment on above: Performed By: #### C BC #### [facility] [address] [address] [address] Ramses Dumas PLT 248 103/ul Normal 150-450 [facility] Comment on above: Performed By: #### C BC #### [facility] [address] [address] [address] Ramses Dumas RBC 4.04 106/ul Critically low 4.20-5.40 [facility] Comment on above: Performed By: #### C BC #### [facility] [address] [place] [address] Dr. Ramses Dumas WBC 10.1 103/ul Normal 4.0-11.0 [facility] Comment on above: Performed By: #### C BC #### [facility] [address] [place] [address] Dr. Ramses Dumas CULTURE URINEon 08-24-2022 CULTURE [...] S F Tetracycline >=16 R F Normal [facility] Comment on above: Performed By: #### U RCX #### [facility] [address] [place] [address] Dr. Ramses Dumas PROF 14(COMP METB)on 022 Albumin [Mass/Vol] 2.4 g/dL Critically low 3.4-5.0 [facility] Comment on above: Performed By: #### C VDTBH #### [facility] [address] [place] [address] Dr. Ramses Dumas Albumin/Globulin [Mass ratio] 0.7 {ratio} Normal [facility] Comment on above: Performed By: #### C VDTBH #### [facility] [address] [place] [address] Dr. Ramses Dumas ALP [Catalytic activity/Vol] 95 U/L Normal 46-116 [facility] Comment on above: Performed By: #### C VDTBH #### [facility] [address] [address] [address] Ramses Dumas ALT [Catalytic activity/Vol] 327 U/L Critically high 14-59 [facility] Comment on above: Performed By: #### C VDTBH #### [facility] [address] [address] [address] Ramses Dumas Anion gap [Moles/Vol] 8.7 mmol/L Normal [facility] Comment on above: Performed By: #### C VDTBH #### [facility] [address] [address] [address] Ramses Dumas AST [Catalytic activity/Vol] 165 U/L Critically high 15-37 [facility] Comment on above: Performed By: #### C VDTBH #### [facility] [address] [place] [address] Dr. Ramses Dumas Bilirubin [Mass/Vol] 0.4 mg/dL Normal 0.2-1.0 [facility] [facility] Comment on above: Performed By: #### C VDTBH #### [facility] [address] [address] [address] Ramses Dumas Calcium [Mass/Vol] 8.0 mg/dL Critically low 8.5-10.1 Th [facility] Comment on above: Performed By: #### C VDTBH #### [facility] [address] [place] [address] Dr. Ramses Dumas Chloride [Moles/Vol] 108 mmol/L Critically high 98-107 [facility] Comment on above: Performed By: #### C VDTBH #### [facility] [address] [address] [address] Ramses Dumas CO2 [Moles/Vol] 25.3 mmol/L Normal 21.0-32.0 [facility] Comment on above: Performed By: #### C VDTBH #### [facility] [address] [address] [address] Ramses Dumas Creatinine [Mass/Vol] 0.70 mg/dL Normal 0.55-1.02 [facility] Comment on above: Performed By: #### C VDTBH #### [facility] [address] [address] [address] Ramses Dumas EGFR-AF KITTITIAN >60 Normal >=60 [facility] Comment on above: Performed By: #### C VDTBH #### [facility] [address] [address] [address] Ramses Dumas EGFR-NON AF KITTITIAN >60 Normal >=60 [facility] Comment on above: Performed By: #### C VDTBH #### [facility] [address] [address] [address] Ramses Dumas Globulin (S) [Mass/Vol] 3.6 g/dL Normal [facility] Comment on above: Performed By: #### C VDTBH #### [facility] [address] [place] [address] Dr. Ramses Dumas Glucose [Mass/Vol] 160 mg/dL Critically high 74-106 [facility] Comment on above: Performed By: #### C VDTBH #### [facility] [address] [address] [address] Ramses Dumas Potassium [Moles/Vol] 4.0 mmol/L Normal 3.5-5.1 [facility] Comment on above: Performed By: #### C VDTBH #### [facility] [address] [place] [address] Dr. Ramses Dumas Protein [Mass/Vol] 6.0 g/dL Critically low 6.4-8.2 Th [facility] Comment on above: Performed By: #### C VDTBH #### [facility] [address] [place] [address] Dr. Ramses Dumas Sodium [Moles/Vol] 138 mmol/L Normal 136-145 [facility] Comment on above: Performed By: #### C VDTBH #### [facility] [address] [address] [address] Ramses Dumas Urea nitrogen [Mass/Vol] 6.0 mg/dL Critically low 7.0-18.0 [facility] Comment on above: Performed By: #### C VDTBH #### [facility] [address] [place] [address] Dr. Ramses Dumas Urea nitrogen/Creatinine [Mass ratio] 8.6 mg/mg Normal [facility] Comment on above: Performed By: #### C VDTBH #### [facility] [address] [place] [address] Dr. Ramses Dumas CBC AUTO DIFFon 08-23-2022 BASO # 0.0 103/ul Normal 0.0-0.1 [facility] Comment on above: Performed By: #### U RCX #### [facility] [address] [place] [address] Dr. Ramses Dumas Basophils/100 WBC (Bld) 0.2 % Normal 0.2-2.0 [facility] Comment on above: Performed By: #### U RCX #### [facility] [address] [place] [address] Dr. Ramses Dumas EO # 0.0 103/ul Normal 0.0-0.7 [facility] Comment on above: Performed By: #### U RCX #### [facility] [address] [place] [address] Dr. Ramses Dumas Eosinophils/100 WBC (Bld) 0.1 % Critically low 0.9-7.0 [facility] Comment on above: Performed By: #### U RCX #### [facility] [address] [place] [address] Dr. Ramses Dumas Erythrocyte distribution width (RBC) [Ratio] 13.4 % Normal 11.0-15.0 [facility] Comment on above: Performed By: #### U RCX #### [facility] [address] [place] [address] Dr. Ramses Dumas Hematocrit (Bld) [Volume fraction] 34.1 % Critically low 36.0-48.0 [facility] Comment on above: Performed By: #### U RCX #### [facility] [address] [place] [address] Dr. Ramses Dumas Hemoglobin (Bld) [Mass/Vol] 10.9 g/dL Critically low 12.0-16.0 [facility] Comment on above: Performed By: #### U RCX #### [facility] [address] [address] [address] Ramses Dumas IG # 0.02 10e3/ul Normal 0.00-0.03 [facility] Comment on above: Performed By: #### U RCX #### [facility] [address] [address] [address] Ramses Dumas IG % 0.2 % Normal 0.0-0.5 [facility] Comment on above: Performed By: #### U RCX #### [facility] [address] [address] [address] Ramses Dumas LYMPH # 0.7 103/ul Critically low 1.2-3.8 [facility] Comment on above: Performed By: #### U RCX #### [facility] [address] [place] [address] Dr. Ramses Dumas Lymphocytes/100 WBC (Bld) 6.9 % Critically low 20.5-60.0 [facility] Comment on above: Performed By: #### U RCX #### [facility] [address] [address] [address] Ramses Dumas MANUAL DIFF REQ NO Normal [facility] Comment on above: Performed By: #### U RCX #### [facility] [address] [address] [address] Ramses Dumas MCH (RBC) [Entitic mass] 26.1 pg Critically low 26.7-34.0 [facility] Comment on above: Performed By: #### U RCX #### [facility] [address] [address] [address] Ramses Dumas MCHC (RBC) [Mass/Vol] 32.0 g/dL Normal 29.9-35.2 [facility] Comment on above: Performed By: #### U RCX #### [facility] [address] [address] [address] Ramses Dumas MCV (RBC) [Entitic vol] 81.8 fL Normal 81.0-99.0 [facility] Comment on above: Performed By: #### U RCX #### [facility] [address] [address] [address] Ramses Dumas MONO # 0.6 103/ul Normal 0.3-0.8 [facility] Comment on above: Performed By: #### U RCX #### [facility] [address] [address] [address] Ramses Dumas Monocytes/100 WBC (Bld) 5.9 % Normal 1.7-12.0 [facility] Comment on above: Performed By: #### U RCX #### [facility] [address] [place] [address] Dr. Ramses Dumas NEUT # 8.2 103/ul Critically high 1.4-6.5 [facility] Comment on above: Performed By: #### U RCX #### [facility] [address] [place] [address] Dr. Ramses Dumas Neutrophils/100 WBC (Bld) 86.7 % Critically high 43.0-75.0 [facility] Comment on above: Performed By: #### U RCX #### [facility] [address] [place] [address] Dr. Ramses Dumas Platelet mean volume (Bld) [Entitic vol] 9.4 fL Critically low 9.5-13.5 [facility] Comment on above: Performed By: #### U RCX #### [facility] [address] [place] [address] Dr. Ramses Dumas PLT 235 103/ul Normal 150-450 [facility] Comment on above: Performed By: #### U RCX #### [facility] [address] [place] [address] Dr. Ramses Dumas RBC 4.17 106/ul Critically low 4.20-5.40 [facility] Comment on above: Performed By: #### U RCX #### [facility] [address] [place] [address] Dr. Ramses Dumas WBC 9.5 103/ul Normal 4.0-11.0 [facility] Comment on above: Performed By: #### U RCX #### [facility] [address] [address] [address] Ramses Dumas PROF 14(COMP METB)on 022 Albumin [Mass/Vol] 2.6 g/dL Critically low 3.4-5.0 [facility] Comment on above: Performed By: #### U KJ 24 #### [facility] [address] [place] [address] Dr. Ramses Dumas Albumin/Globulin [Mass ratio] 0.8 {ratio} Normal [facility] Comment on above: Performed By: #### U KJ 24 #### [facility] [address] [place] [address] Dr. Ramses Dumas ALP [Catalytic activity/Vol] 82 U/L Normal 46-116 [facility] Comment on above: Performed By: #### U KJ 24 #### [facility] [address] [place] [address] Dr. Ramses Dumas ALT [Catalytic activity/Vol] 257 U/L Critically high 14-59 [facility] Comment on above: Performed By: #### U KJ 24 #### [facility] [address] [place] [address] Dr. Ramses Dumas Anion gap [Moles/Vol] 10.3 mmol/L Normal [facility] Comment on above: Performed By: #### U KJ 24 #### [facility] [address] [place] [address] Dr. Ramses Dumas AST [Catalytic activity/Vol] 196 U/L Critically high 15-37 [facility] Comment on above: Performed By: #### U KJ 24 #### [facility] [address] [place] [address] Dr. Ramses Dumas Bilirubin [Mass/Vol] 0.5 mg/dL Normal 0.2-1.0 [facility] Comment on above: Performed By: #### U KJ 24 #### [facility] [address] [place] [address] Dr. Ramses Dumas Calcium [Mass/Vol] 7.8 mg/dL Critically low 8.5-10.1 [facility] Comment on above: Performed By: #### U KJ 24 #### [facility] [address] [address] [address] Ramses Dumas Chloride [Moles/Vol] 104 mmol/L Normal 98-107 [facility] Comment on above: Performed By: #### U KJ 24 #### [facility] [address] [address] [address] Ramses Dumas CO2 [Moles/Vol] 24.4 mmol/L Normal 21.0-32.0 [facility] Comment on above: Performed By: #### U KJ 24 #### [facility] [address] [address] [address] Ramses Dumas Creatinine [Mass/Vol] 1.09 mg/dL Critically high 0.55-1.02 [facility] Comment on above: Performed By: #### U KJ 24 #### [facility] [address] [address] [address] Ramses Dumas EGFR-AF KITTITIAN >60 Normal >=60 [facility] Comment on above: Performed By: #### U KJ 24 #### [facility] [address] [address] [address] Ramses Dumas EGFR-NON AF KITTITIAN 59 mL/min/1.73m2 Critically low >=60 [facility] Comment on above: Performed By: #### U KJ 24 #### [facility] [address] [address] [address] Ramses Dumas Globulin (S) [Mass/Vol] 3.3 g/dL Normal [facility] Comment on above: Performed By: #### U KJ 24 #### [facility] [address] [address] [address] Ramses Dumas Glucose [Mass/Vol] 143 mg/dL Critically high 74-106 [facility] Comment on above: Performed By: #### U KJ 24 #### [facility] [address] [address] [address] Ramses Dumas Potassium [Moles/Vol] 3.7 mmol/L Normal 3.5-5.1 [facility] Comment on above: Performed By: #### U KJ 24 #### [facility] [address] [address] [address] Ramses Dumas Protein [Mass/Vol] 5.9 g/dL Critically low 6.4-8.2 [facility] Comment on above: Performed By: #### U KJ 24 #### [facility] [address] [address] [address] Ramses Dumas Sodium [Moles/Vol] 135 mmol/L Critically low 136-145 [facility] Comment on above: Performed By: #### U KJ 24 #### [facility] [address] [place] [address] Dr. Ramses Dumas Urea nitrogen [Mass/Vol] 10.0 mg/dL Normal 7.0-18.0 [facility] Comment on above: Performed By: #### U KJ 24 #### [facility] [address] [place] [address] Dr. Ramses Dumas Urea nitrogen/Creatinine [Mass ratio] 9.2 mg/mg Normal [facility] Comment on above: Performed By: #### U KJ 24 #### [facility] [address] [place] [address] Dr. Ramses Dumas BLOOD CULTURE ID PANELon A. baumannii Not detected Normal NOT DETECTED [facility] Comment on above: Performed By: #### C VDTBH #### [facility] [address] [place] [address] Dr. Ramses Dumas Bacteriodes fragilis Not detected Normal NOT DETECTED [facility] Comment on above: Performed By: #### C VDTBH #### [facility] [address] [place] [address] Dr. Ramses Dumas BCID CONTROLS PASSED Normal [facility] Comment on above: Performed By: #### C VDTBH #### [facility] [address] [place] [address] Dr. Ramses Dumas BCIDBTHD BLOOD CULTURE BOTTLE INFORMATION Normal [facility] Comment on above: Performed By: #### C VDTBH #### [facility] [address] [place], [place] [id number] Dr. Ramses Dumas BCIDHD1 ANTIMICROBIAL RESISTANCE GENES Normal [facility] Comment on above: Performed By: #### C VDTBH #### [facility] [address] [place] [address] Dr. Ramses Dumas BCIDHD2 SEE BELOW Normal [facility] Comment on above: Result Comment: Note : Antimicrobial resitance can occur via multiple mechanisms. A Not Detected result for the [employer] antomicrobial resistance gene assays does not indicate antimicrobial susceptibility. Subculturing is required for species identification and susceptibility testing of isolates. Performed By: #### C VDTBH #### [facility] [address] [place] [address] Dr. Ramses Dumas BCIDHD3 Positive [facility] Comment on above: Performed By: #### C VDTBH #### [facility] [address] [place] [address] Dr. Ramses Dumas BCIDHD4 Negative Normal [facility] Comment on above: Performed By: #### C VDTBH #### [facility] [address] [place] [address] Dr. Ramses Dumas BCIDHD5 YEAST Normal [facility] Comment on above: Performed By: #### C VDTBH #### [facility] [address] [place] [address] Dr. Ramses Dumas Bottle Set: Set 1 Normal [facility] Comment on above: Performed By: #### C VDTBH #### [facility] [address] [place] [address] Dr. Ramses Dumas Bottle: Pediatric Normal [facility] Comment on above: Performed By: #### C VDTBH #### [facility] [address] [place] [address] Dr. Ramses Dumas C. neoformans/gattii Not detected Normal NOT DETECTED [facility] Comment on above: Performed By: #### C VDTBH #### [facility] [address] [place] [address] Dr. Ramses Dumas Kim albicans Not detected Normal NOT DETECTED [facility] Comment on above: Performed By: #### C VDTBH #### [facility] [address] [place] [address] Dr. Ramses Dumas Kim auris Not detected Normal NOT DETECTED [facility] Comment on above: Performed By: #### C VDTBH #### [facility] [address] [place] [address] Dr. Ramses Dumas Kim glabrata Not detected Normal NOT DETECTED [facility] Comment on above: Performed By: #### C VDTBH #### [facility] [address] [place] [address] Dr. Ramses Dumas Kim Krusei Not detected Normal NOT DETECTED [facility] Comment on above: Performed By: #### C VDTBH #### [facility] [address] [place] [address] Dr. Ramses Dumas Kim Parapsilosis Not detected Normal NOT DETECTED [facility] Comment on above: Performed By: #### C VDTBH #### [facility] [address] [place] [address] Dr. Ramses Dumas Kim Tropicalis Not detected Normal NOT DETECTED [facility] Comment on above: Performed By: #### C VDTBH #### [facility] [address] [place] [address] Dr. Ramses Dumas CTX-M Resistant Gene Not Applicable Normal NOT DETECTE D [facility] Comment on above: Performed By: #### C VDTBH #### [facility] [address] [place] [address] Dr. Ramses Dumas E. Cloacae complex Not detected Normal NOT DETECTED [facility] Comment on above: Performed By: #### C VDTBH #### [facility] [address] [place] [address] Dr. Ramses Dumas E. faecalis Not detected Normal NOT DETECTED [facility] Comment on above: Performed By: #### C VDTBH #### [facility] [address] [place] [address] Dr. Ramses Dumas E. faecium Not detected Normal NOT DETECTED [facility] Comment on above: Performed By: #### C VDTBH #### [facility] [address] [place] [address] Dr. Ramses Dumas Enterobacteriaceae Not detected Normal NOT DETECTED [facility] Comment on above: Performed By: #### C VDTBH #### [facility] [address] [place] [address] Dr. Ramses Dumas Escherichia coli Not detected Normal NOT DETECTED [facility] Comment on above: Performed By: #### C VDTBH #### [facility] [address] [place] [address] Dr. Ramses Dumas H. influenzae Not detected Normal NOT DETECTED [facility] Comment on above: Performed By: #### C VDTBH #### [facility] [address] [place] [address] Dr. Ramses Dumas IMP Resistant Gene Not Applicable Normal NOT DETECTED [facility] Comment on above: Performed By: #### C VDTBH #### [facility] [address] [place] [address] Dr. Ramses Dumas K. oxytoca Not detected Normal NOT DETECTED [facility] Comment on above: Performed By: #### C VDTBH #### [facility] [address] [place] [address] Dr. Ramses Dumas K. pneumoniae Not detected Normal NOT DETECTED [facility] Comment on above: Performed By: #### C VDTBH #### [facility] [address] [place] [address] Dr. Ramses Dumas Klebsiella aerogenes Not detected Normal NOT DETECTED [facility] Comment on above: Performed By: #### C VDTBH #### [facility] [address] [place] [address] Dr. Ramses Dumas KPC Resistant Gene Not detected Normal NOT DETECTED [facility] Comment on above: Performed By: #### C VDTBH #### [facility] [address] [place] [address] Dr. Ramses Dumas List. monocytogenes Not detected Normal NOT DETECTED [facility] Comment on above: Performed By: #### C VDTBH #### [facility] [address] [place] [address] Dr. Ramses Dumas Mcr-1 Resistant Gene Not Applicable Normal NOT DETECTE D [facility] Comment on above: Performed By: #### C VDTBH #### [facility] [address] [place] [address] Dr. Ramses Dumas mecA/C Not Applicable Normal NOT DETECTED [facility] Comment on above: Performed By: #### C VDTBH #### [facility] [address] [place] [address] Dr. Ramses Dumas mecA/C MREJ Not Applicable Normal NOT DETECTED [facility] Comment on above: Performed By: #### C VDTBH #### [facility] [address] [place] [address] Dr. Ramses Dumas N. meningitidis Not detected Normal NOT DETECTED [facility] Comment on above: Performed By: #### C VDTBH #### [facility] [address] [place] [address] Dr. Ramses Dumas NDM Resistant Gene Not Applicable Normal NOT DETECTED [facility] Comment on above: Performed By: #### C VDTBH #### [facility] [address] [place] [address] Dr. Ramses Dumas Oxa-48-like Not Applicable Normal NOT DETECTED [facility] Comment on above: Performed By: #### C VDTBH #### [facility] [address] [place] [address] Dr. Ramses Dumas Proteus Not detected Normal NOT DETECTED [facility] Comment on above: Performed By: #### C VDTBH #### [facility] [address] [place] [address] Dr. Ramses Dumas Pseud. aeruginosa Not detected Normal NOT DETECTED [facility] Comment on above: Performed By: #### C VDTBH #### [facility] [address] [place] [address] Dr. Ramses Dumas S. maltophilia Not detected Normal NOT DETECTED [facility] Comment on above: Performed By: #### C VDTBH #### [facility] [address] [place] [address] Dr. Ramses Dumas Salmonella Not detected Normal NOT DETECTED [facility] Comment on above: Performed By: #### C VDTBH #### [facility] [address] [place] [address] Dr. Ramses Dumas Seratia marcescens Not detected Normal NOT DETECTED [facility] Comment on above: Performed By: #### C VDTBH #### [facility] [address] [place] [address] Dr. Ramses Dumas Site: unknown/not given Normal [facility] Comment on above: Performed By: #### C VDTBH #### [facility] [address] [place] [address] Dr. Ramses Dumas Staph. aureus Not detected Normal NOT DETECTED [facility] Comment on above: Performed By: #### C VDTBH #### [facility] [address] [place] [address] Dr. Ramses Dumas Staph. epidermidis Not detected Normal NOT DETECTED [facility] Comment on above: Performed By: #### C VDTBH #### [facility] [address] [place] [address] Dr. Ramses Dumas Stapphillip. lugdunensis Not detected Normal NOT DETECTED [facility] Comment on above: Performed By: #### C VDTBH #### [facility] [address] [place] [address] Dr. Ramses Dumas Staphylococcus Not detected Normal NOT DETECTED [facility] Comment on above: Performed By: #### C VDTBH #### [facility] [address] [place] [address] Dr. Ramses Dumas Strep. agalactiae Detected Critically abnormal NOT DETECTED [facility] Comment on above: Performed By: #### C VDTBH #### [facility] [address] [place] [address] Dr. Ramses Dumas Strep. pneumoniae Not detected Normal NOT DETECTED [facility] Comment on above: Performed By: #### C VDTBH #### [facility] [address] [place] [address] Dr. Ramses Dumas Strep. pyogenes Not detected Normal NOT DETECTED [facility] Comment on above: Performed By: #### C VDTBH #### [facility] [address] [place] [address] Dr. Ramses Dumas Streptococcus Detected Critically abnormal NOT DETECTED [facility] Comment on above: Performed By: #### C VDTBH #### [facility] [address] [place] [address] Dr. Ramses Dumas Efrain/B Resist. Gene Not detected Normal NOT DETECTED [facility] Comment on above: Performed By: #### C VDTBH #### [facility] [address] [place] [address] Dr. Ramses Dumas VIM Resistant Gene Not Applicable Normal NOT DETECTED [facility] Comment on above: Performed By: #### C VDTBH #### [facility] [address] [place] [address] Dr. Ramses Dumas CBC AUTO DIFFon 08-22-2022 BASO # 0.1 103/ul Normal 0.0-0.1 [facility] Comment on above: Performed By: #### U KJ 24 #### [facility] [address] [place] [address] Dr. Ramses Dumas Basophils/100 WBC (Bld) 0.7 % Normal 0.2-2.0 [facility] Comment on above: Performed By: #### U KJ 24 #### [facility] [address] [place] [address] Dr. Ramses Dumas EO # 0.1 103/ul Normal 0.0-0.7 [facility] Comment on above: Performed By: #### U KJ 24 #### [facility] [address] [place] [address] Dr. Ramses Dumas Eosinophils/100 WBC (Bld) 1.7 % Normal 0.9-7.0 [facility] Comment on above: Performed By: #### U KJ 24 #### [facility] [address] [place] [address] Dr. Ramses Dumas Erythrocyte distribution width (RBC) [Ratio] 13.2 % Normal 11.0-15.0 [facility] Comment on above: Performed By: #### U KJ 24 #### [facility] [address] [address] [address] Ramses Dumas Hematocrit (Bld) [Volume fraction] 39.8 % Normal 36.0-48.0 [facility] Comment on above: Performed By: #### U KJ 24 #### [facility] [address] [place] [address] Dr. Ramses Dumas Hemoglobin (Bld) [Mass/Vol] 12.9 g/dL Normal 12.0-16.0 [facility] Comment on above: Performed By: #### U KJ 24 #### [facility] [address] [place] [address] Dr. Ramses Dumas IG # 0.02 10e3/ul Normal 0.00-0.03 [facility] Comment on above: Performed By: #### U KJ 24 #### [facility] [address] [place] [address] Dr. Ramses Dumas IG % 0.2 % Normal 0.0-0.5 [facility] Comment on above: Performed By: #### U KJ 24 #### [facility] [address] [place] [address] Dr. Ramses Dumas LYMPH # 3.2 103/ul Normal 1.2-3.8 [facility] Comment on above: Performed By: #### U KJ 24 #### [facility] [address] [place] [address] Dr. Ramses Dumas Lymphocytes/100 WBC (Bld) 40.0 % Normal 20.5-60.0 [facility] Comment on above: Performed By: #### U KJ 24 #### [facility] [address] [place] [address] Dr. Ramses Dumas MANUAL DIFF REQ NO Normal [facility] Comment on above: Performed By: #### U KJ 24 #### [facility] [address] [place] [address] Dr. Ramses Dumas MCH (RBC) [Entitic mass] 26.6 pg Critically low 26.7-34.0 [facility] Comment on above: Performed By: #### U KJ 24 #### [facility] [address] [place] [address] Dr. Ramses Dumas MCHC (RBC) [Mass/Vol] 32.4 g/dL Normal 29.9-35.2 [facility] Comment on above: Performed By: #### U KJ 24 #### [facility] [address] [place] [address] Dr. Ramses Dumas MCV (RBC) [Entitic vol] 82.1 fL Normal 81.0-99.0 [facility] Comment on above: Performed By: #### U KJ 24 #### [facility] [address] [place] [address] Dr. Ramses Dumas MONO # 0.6 103/ul Normal 0.3-0.8 [facility] Comment on above: Performed By: #### U KJ 24 #### [facility] [address] [place] [address] Dr. Ramses Dumas Monocytes/100 WBC (Bld) 7.5 % Normal 1.7-12.0 [facility] Comment on above: Performed By: #### U KJ 24 #### [facility] [address] [place] [address] Dr. Ramses Dumas NEUT # 4.0 103/ul Normal 1.4-6.5 [facility] Comment on above: Performed By: #### U KJ 24 #### [facility] [address] [place] [address] Dr. Ramses Dumas Neutrophils/100 WBC (Bld) 49.9 % Normal 43.0-75.0 [facility] Comment on above: Performed By: #### U KJ 24 #### [facility] [address] [place] [address] Dr. Ramses Dumas Platelet mean volume (Bld) [Entitic vol] 9.3 fL Critically low 9.5-13.5 [facility] Comment on above: Performed By: #### U KJ 24 #### [facility] [address] [place] [address] Dr. Ramses Dumas PLT 354 103/ul Normal 150-450 [facility] Comment on above: Performed By: #### U KJ 24 #### [facility] [address] [place] [address] Dr. Ramses Dumas RBC 4.85 106/ul Normal 4.20-5.40 [facility] Comment on above: Performed By: #### U KJ 24 #### [facility] [address] [place], [place] [address] Dr. Ramses Dumas WBC 8.1 103/ul Normal 4.0-11.0 [facility] Comment on above: Performed By: #### U KJ 24 #### [facility] [address] [place], [place] [address] ABD/PELVIS WO CONon [...] KESHIA IRIZARRY Date: 2022-08-22 07:04 Normal [facility] Covid-19 PCR (CVDTB)on SARS-CoV-2 (COVID-19) RNA FRANCESCA+probe Ql (Unsp spec) Not detected Normal NOT DETECTED [facility] Comment on above: Result Comment: When [...] for this test is supported by the Assignment Editor of Health and Human Service's declaration that [...] used). Performed By: #### C MP #### [facility] [address] [place] [address] Dr. Ramses Dumas ER URINE PROFILEon 2 Bilirubin Ql (U) Negative Normal NEGATIVE [facility] Comment on above: Performed By: #### U RCX #### [facility] [address] [place] [address] Dr. Ramses Dumas Clarity (U) CLEAR Normal CLEAR [facility] Comment on above: Performed By: #### U RCX #### [facility] [address] [place] [address] Dr. Ramses Dumas Color (U) LT. YELLOW Normal YELLOW [facility] Comment on above: Performed By: #### U RCX #### [facility] [address] [place] [address] Dr. Ramses Dumas ERUAHD A micrscopic examination will be performed if indicated. Normal [facility] Comment on above: Performed By: #### U RCX #### [facility] [address] [place] [address] Dr. Ramses Dumas Glucose Ql (U) Negative Normal NEGATIVE [facility] Comment on above: Performed By: #### U RCX #### [facility] [address] [place] [address] Dr. Ramses Dumas Hemoglobin Ql (U) SMALL Abnormal NEGATIVE [facility] Comment on above: Performed By: #### U RCX #### [facility] [address] [place] [address] Dr. Ramses Dumas Ketones Ql (U) Negative Normal NEGATIVE [facility] Comment on above: Performed By: #### U RCX #### [facility] [address] [place] [address] Dr. Ramses Dumas LEUKOCYTES SMALL Abnormal NEGATIVE [facility] Comment on above: Performed By: #### U RCX #### [facility] [address] [place] [address] Dr. Ramses Dumas Nitrite Ql (U) Negative Normal NEGATIVE [facility] Comment on above: Performed By: #### U RCX #### [facility] [address] [place] [address] Dr. Ramses Dumas pH (U) 7.0 [pH] Normal 5-9 [facility] Comment on above: Performed By: #### U RCX #### [facility] [address] [place] [address] Dr. Ramses Dumas Protein (U) [Mass/Vol] 30 mg/dL Abnormal NEGATIVE/ TRACE [facility] Comment on above: Performed By: #### U RCX #### [facility] [address] [place] [address] Dr. Ramses Dumas SPEC GRAVITY 1.020 Normal 1.005-<=1.02 5 [facility] Comment on above: Performed By: #### U RCX #### [facility] [address] [place] [address] Dr. Ramses Dumas UR MICRO IND INDICATED Normal [facility] Comment on above: Performed By: #### U RCX #### [facility] [address] [place] [address] Dr. Ramses Dumas Urobilinogen Qn (U) 0.2 {Lucero'U}/dL Normal 0.2 - 1. 0 [facility] Comment on above: Performed By: #### U RCX #### [facility] [address] [address] [address] Ramses Dumas LACTATE/LACTIC ACIDon 2021 Lactate [Moles/Vol] 2.3 mmol/L Critically high 0.4-1.9 [facility] Comment on above: Performed By: #### U RCX #### [facility] [address] [address] [address] Ramses Dumas URon 08-22-2022 , QUAL Negative Normal NEGATIVE [facility] Comment on above: Performed By: #### U RCX #### [facility] [address] [place] [address] Dr. Ramses Dumas PROF 14(COMP METB)on 022 Albumin [Mass/Vol] 3.5 g/dL Normal 3.4-5.0 [facility] Comment on above: Performed By: #### U RCX #### [facility] [address] [place] [address] Dr. Ramses Dumas Albumin/Globulin [Mass ratio] 0.9 {ratio} Normal [facility] Comment on above: Performed By: #### U RCX #### [facility] [address] [place] [address] Dr. Ramses Dumas ALP [Catalytic activity/Vol] 92 U/L Normal 46-116 [facility] Comment on above: Performed By: #### U RCX #### [facility] [address] [place] [address] Dr. Ramses Dumas ALT [Catalytic activity/Vol] 139 U/L Critically high 14-59 [facility] Comment on above: Performed By: #### U RCX #### [facility] [address] [place] [address] Dr. Ramses Dumas Anion gap [Moles/Vol] 10.2 mmol/L Normal [facility] Comment on above: Performed By: #### U RCX #### [facility] [address] [place] [address] Dr. Ramses Dumas AST [Catalytic activity/Vol] 112 U/L Critically high 15-37 [facility] Comment on above: Performed By: #### U RCX #### [facility] [address] [address] [address] Ramses Dumas Bilirubin [Mass/Vol] 0.2 mg/dL Normal 0.2-1.0 [facility] Comment on above: Performed By: #### U RCX #### [facility] [address] [address] [address] Ramses Dumas Calcium [Mass/Vol] 8.8 mg/dL Normal 8.5-10.1 [facility] Comment on above: Performed By: #### U RCX #### [facility] [address] [address] [address] Ramses Dumas Chloride [Moles/Vol] 105 mmol/L Normal 98-107 [facility] Comment on above: Performed By: #### U RCX #### [facility] [address] [place] [address] Dr. Ramses Dumas CO2 [Moles/Vol] 26.3 mmol/L Normal 21.0-32.0 [facility] Comment on above: Performed By: #### U RCX #### [facility] [address] [place] [address] Dr. Ramses Dumas Creatinine [Mass/Vol] 0.95 mg/dL Normal 0.55-1.02 [facility] Comment on above: Performed By: #### U RCX #### [facility] [address] [place] [address] Dr. Ramses Dumas EGFR-AF KITTITIAN >60 Normal >=60 [facility] Comment on above: Performed By: #### U RCX #### [facility] [address] [place] [address] Dr. Ramses Dumas EGFR-NON AF KITTITIAN >60 Normal >=60 [facility] Comment on above: Performed By: #### U RCX #### [facility] [address] [place] [address] Dr. Ramses Dumas Globulin (S) [Mass/Vol] 3.9 g/dL Normal [facility] Comment on above: Performed By: #### U RCX #### [facility] [address] [address] [address] Ramses Dumas Glucose [Mass/Vol] 137 mg/dL Critically high 74-106 T [facility] Comment on above: Performed By: #### U RCX #### [facility] [address] [place] [address] Dr. Ramses Dumas Potassium [Moles/Vol] 3.5 mmol/L Normal 3.5-5.1 [facility] Comment on above: Performed By: #### U RCX #### [facility] [address] [place] [address] Dr. Ramses Dumas Protein [Mass/Vol] 7.4 g/dL Normal 6.4-8.2 [facility] Comment on above: Performed By: #### U RCX #### [facility] [address] [place] [address] Dr. Ramses Dumas Sodium [Moles/Vol] 138 mmol/L Normal 136-145 [facility] Comment on above: Performed By: #### U RCX #### [facility] [address] [place] [address] Dr. Ramses Dumas Urea nitrogen [Mass/Vol] 11.0 mg/dL Normal 7.0-18.0 [facility] Comment on above: Performed By: #### U RCX #### [facility] [address] [place] [address] Dr. Ramses Dumas Urea nitrogen/Creatinine [Mass ratio] 11.6 mg/mg Normal [facility] Comment on above: Performed By: #### U RCX #### [facility] [address] [place] [address] Dr. Ramses Dumas URINE MICROSCOPIC ONLYon BACTERIA LARGE Abnormal NONE SEEN [facility] Comment on above: Performed By: #### U RCX #### [facility] [address] [place] [address] Dr. Ramses Dumas Bacteria identified Cx Nom (U) CX ALREADY ORDERED Normal [facility] Comment on above: Performed By: #### U RCX #### [facility] [address] [place] [address] Dr. Ramses Dumas CAST NONE SEEN Normal NONE SEEN [facility] Comment on above: Performed By: #### U RCX #### [facility] [address] [address] [address] Ramses Dumas Crystals LM Nom (Urine sed) NONE SEEN Normal NONE SEEN [facility] Comment on above: Performed By: #### U RCX #### [facility] [address] [address] [address] Ramses Dumas Epithelial cells LM Ql (Urine sed) MANY Abnormal NONE SEEN /RARE [facility] Comment on above: Performed By: #### U RCX #### [facility] [address] [place] [address] Dr. Ramses Dumas MUCOUS NONE SEEN Normal NONE SEEN [facility] Comment on above: Performed By: #### U RCX #### [facility] [address] [place] [address] Dr. Ramses Dumas RBC 5-10 Abnormal 0-2 [facility] Comment on above: Performed By: #### U RCX #### [facility] [address] [place] [address] Dr. Ramses Dumas WBC 50-75 Abnormal NONE SEEN [facility] Comment on above: Performed By: #### U RCX #### [facility] [address] [place] [address] Dr. Ramses Dumas CULTURE URINEon 08-15-2022 CULTURE [...] F Tetracycline >=16 R F Normal [facility] Comment on above: Performed By: #### U RCX #### [facility] [address] [place] [address] Dr. Ramses Dumas ACETAMINOPHENon 08-13-2022 Acetaminophen [Mass/Vol] ug/mL Critically low 10.0-30.0 [facility] Comment on above: Performed By: #### U RCX #### [facility] [address] [place] [address] Dr. Ramses Dumas CBC AUTO DIFFon 08-13-2022 BASO # 0.1 103/ul Normal 0.0-0.1 [facility] Comment on above: Performed By: #### C VDTBH #### [facility] [address] [place] [address] Dr. Ramses Dumas Basophils/100 WBC (Bld) 0.8 % Normal 0.2-2.0 [facility] Comment on above: Performed By: #### C VDTBH #### [facility] [address] [place] [address] Dr. Ramses Dumas EO # 0.1 103/ul Normal 0.0-0.7 [facility] Comment on above: Performed By: #### C VDTBH #### [facility] [address] [place] [address] Dr. Ramses Dumas Eosinophils/100 WBC (Bld) 1.6 % Normal 0.9-7.0 [facility] Comment on above: Performed By: #### C VDTBH #### [facility] [address] [place] [address] Dr. Ramses Dumas Erythrocyte distribution width (RBC) [Ratio] 13.3 % Normal 11.0-15.0 [facility] Comment on above: Performed By: #### C VDTBH #### [facility] [address] [place] [address] Dr. Ramses Dumas Hematocrit (Bld) [Volume fraction] 40.6 % Normal 36.0-48.0 [facility] Comment on above: Performed By: #### C VDTBH #### [facility] [address] [place] [address] Dr. Ramses Dumas Hemoglobin (Bld) [Mass/Vol] 13.2 g/dL Normal 12.0-16.0 [facility] Comment on above: Performed By: #### C VDTBH #### [facility] [address] [place] [address] Dr. Ramses Dumas IG # 0.01 10e3/ul Normal 0.00-0.03 [facility] Comment on above: Performed By: #### C VDTBH #### [facility] [address] [place] [address] Dr. Ramses Dumas IG % 0.2 % Normal 0.0-0.5 [facility] Comment on above: Performed By: #### C VDTBH #### [facility] [address] [place] [address] Dr. Ramses Dumas LYMPH # 2.4 103/ul Normal 1.2-3.8 [facility] Comment on above: Performed By: #### C VDTBH #### [facility] [address] [place] [address] Dr. Ramses Dumas Lymphocytes/100 WBC (Bld) 37.7 % Normal 20.5-60.0 [facility] Comment on above: Performed By: #### C VDTBH #### [facility] [address] [place] [address] Dr. Ramses Dumas MANUAL DIFF REQ NO Normal [facility] Comment on above: Performed By: #### C VDTBH #### [facility] [address] [place] [address] Dr. Ramses Dumas MCH (RBC) [Entitic mass] 26.7 pg Normal 26.7-34.0 [facility] Comment on above: Performed By: #### C VDTBH #### [facility] [address] [place] [address] Dr. Ramses Dumas MCHC (RBC) [Mass/Vol] 32.5 g/dL Normal 29.9-35.2 [facility] Comment on above: Performed By: #### C VDTBH #### [facility] [address] [place] [address] Dr. Ramses Dumas MCV (RBC) [Entitic vol] 82.0 fL Normal 81.0-99.0 [facility] Comment on above: Performed By: #### C VDTBH #### [facility] [address] [address] [address] Ramses Dumas MONO # 0.6 103/ul Normal 0.3-0.8 [facility] Comment on above: Performed By: #### C VDTBH #### [facility] [address] [place] [address] Dr. Ramses Dumas Monocytes/100 WBC (Bld) 8.6 % Normal 1.7-12.0 [facility] Comment on above: Performed By: #### C VDTBH #### [facility] [address] [place] [address] Dr. Ramses Dumas NEUT # 3.3 103/ul Normal 1.4-6.5 [facility] Comment on above: Performed By: #### C VDTBH #### [facility] [address] [place] [address] Dr. Ramses Dumas Neutrophils/100 WBC (Bld) 51.1 % Normal 43.0-75.0 [facility] Comment on above: Performed By: #### C VDTBH #### [facility] [address] [place] [address] Dr. Ramses Dumas Platelet mean volume (Bld) [Entitic vol] 8.7 fL Critically low 9.5-13.5 [facility] Comment on above: Performed By: #### C VDTBH #### [facility] [address] [place] [address] Dr. Ramses Dumas PLT 409 103/ul Normal 150-450 [facility] Comment on above: Performed By: #### C VDTBH #### [facility] [address] [place] [address] Dr. Ramses Dumas RBC 4.95 106/ul Normal 4.20-5.40 [facility] Comment on above: Performed By: #### C VDTBH #### [facility] [address] [place] [address] Dr. Ramses Dumas WBC 6.4 103/ul Normal 4.0-11.0 [facility] Comment on above: Performed By: #### C VDTBH #### [facility] [address] [place] [address] Dr. Ramses Dumas [facility]20 SARS-CoV-2 (COVID-19) RNA FRANCESCA+probe Ql (Unsp spec) Not detected Normal NOT DETECTED [facility] Comment on above: Result Comment: When [...] for this test is supported by the Assignment Editor of Health and Human Service's declaration that [...] used). Performed By: #### C VDTB #### [facility] [address] [place] [address] Dr. Ramses Dumas DRUG SCREEN RAPID (URINE)on 08-13-2022 AMP Negative Normal NEGATIVE [facility] Comment on above: Performed By: #### C BC #### [facility] [address] [place] [address] Dr. Ramses Dumas BAR Negative Normal NEGATIVE [facility] Comment on above: Performed By: #### C BC #### [facility] [address] [place] [address] Dr. Rmases Dumas BUP Negative Normal NEGATIVE [facility] Comment on above: Performed By: #### C BC #### [facility] [address] [place] [address] Dr. Ramses Dumas BZO Negative Normal NEGATIVE [facility] Comment on above: Performed By: #### C BC #### [facility] [address] [place] [address] Dr. Ramses Dumas ODILIA Negative Normal NEGATIVE [facility] Comment on above: Performed By: #### C BC #### [facility] [address] [place] [address] Dr. Ramses Dumas CUT-OFFS SEE BELOW Normal [facility] Comment on above: Result Comment: AMP (Amphetamine): 500ng/mL, BAR (Barbituates): 200 ng/mL, BZO (Benzodiazepines): 150 ng/mL, BUP (Buprenorphine): 10 ng/mL, ODILIA (Cocaine): 150 ng/mL, mAMP (Methamphetamine): 500 ng/mL, MTD (Methadone): 200 ng/mL, OPI (Opiates): 100 ng/mL, OXY (Oxycodone): 100 ng/mL, PCP (Phencyclidine): 25 ng/mL, PPX (Propoxyphene): 300 ng/mL, THC (Cannabinoids): 50 ng/mL, TCA (Trycyclic Antidepressants): 300 ng/mL Performed By: #### C BC #### [facility] [address] [place] [address] Dr. Ramses Dumas DRUG CUT HEADER DRUG CLASS TEST SYSTEM CUT-OFF CONCENTRATIONS ARE FOLLOWS: Normal [facility] Comment on above: Performed By: #### C BC #### [facility] [address] [place] [address] Dr. Ramses Dumas mAMP Negative Normal NEGATIVE [facility] Comment on above: Performed By: #### C BC #### [facility] [address] [place] [address] Dr. Ramses Dumas MTD Negative Normal NEGATIVE [facility] Comment on above: Performed By: #### C BC #### [facility] [address] [place] [address] Dr. Ramses Dumas OPI Negative Normal NEGATIVE [facility] Comment on above: Performed By: #### C BC #### [facility] [address] [place] [address] Dr. Ramses Dumas OXY Negative Normal NEGATIVE [facility] Comment on above: Performed By: #### C BC #### [facility] [address] [place] [address] Dr. Ramses Dumas PCP Negative Normal NEGATIVE [facility] Comment on above: Performed By: #### C BC #### [facility] [address] [address] [address] Ramses Dumas PPX Negative Normal NEGATIVE [facility] Comment on above: Performed By: #### C BC #### [facility] [address] [place] [address] Dr. Ramses Dumas TCA Negative Normal NEGATIVE [facility] Comment on above: Performed By: #### C BC #### [facility] [address] [place] [address] Dr. Ramses Dumas THC Negative Normal NEGATIVE [facility] Comment on above: Performed By: #### C BC #### [facility] [address] [place] [address] Dr. Ramses Dumas ER URINE PROFILEon 2 Bilirubin Ql (U) Negative Normal NEGATIVE [facility] Comment on above: Performed By: #### C BC #### [facility] [address] [place] [address] Dr. Ramses Dumas Clarity (U) CLEAR Normal CLEAR [facility] Comment on above: Performed By: #### C BC #### [facility] [address] [place] [address] Dr. Ramses Dumas Color (U) LT. YELLOW Normal YELLOW [facility] Comment on above: Performed By: #### C BC #### [facility] [address] [place] [address] Dr. Ramses Dumas ERUWalter A micrscopic examination will be performed if indicated. Normal [facility] Comment on above: Performed By: #### C BC #### [facility] [address] [place] [address] Dr. Ramses Dumas Glucose Ql (U) Negative Normal NEGATIVE [facility] Comment on above: Performed By: #### C BC #### [facility] [address] [place] [address] Dr. Ramses Dumas Hemoglobin Ql (U) LARGE Abnormal NEGATIVE [facility] Comment on above: Performed By: #### C BC #### [facility] [address] [place] [address] Dr. Ramses Dumas Ketones Ql (U) Negative Normal NEGATIVE [facility] Comment on above: Performed By: #### C BC #### [facility] [address] [place] [address] Dr. Ramses Dumas LEUKOCYTES LARGE Abnormal NEGATIVE [facility] Comment on above: Performed By: #### C BC #### [facility] [address] [place] [address] Dr. Ramses Dumas Nitrite Ql (U) Positive Abnormal NEGATIVE [facility] Comment on above: Performed By: #### C BC #### [facility] [address] [place] [address] Dr. Ramses Dumas pH (U) 6.0 [pH] Normal 5-9 [facility] Comment on above: Performed By: #### C BC #### [facility] [address] [place] [address] Dr. Ramses Dumas Protein (U) [Mass/Vol] 30 mg/dL Abnormal NEGATIVE/ TRACE [facility] Comment on above: Performed By: #### C BC #### [facility] [address] [place] [address] Dr. Ramses Dumas SPEC GRAVITY >=1.030 Abnormal 1.005-<=1.02 5 [facility] Comment on above: Performed By: #### C BC #### [facility] [address] [place] [address] Dr. Ramses Dumas UR MICRO IND INDICATED Normal [facility] Comment on above: Performed By: #### C BC #### [facility] [address] [place] [address] Dr. Ramses Dumas Urobilinogen Qn (U) 0.2 {Lucero'U}/dL Normal 0.2 - 1. 0 [facility] Comment on above: Performed By: #### C BC #### [facility] [address] [place] [address] Dr. Ramses Dumas ETHANOL (BLD ALC)on 08-13-20 ALC NOTE NOTE: 80 mg/dl is th e legal limit for a blood alcohol level Normal [facility] Comment on above: Performed By: #### B LDCX2 #### [facility] [address] [place] [address] Dr. Ramses Duams Ethanol [Mass/Vol] mg/dL Normal [facility] Comment on above: Performed By: #### B LDCX2 #### [facility] [address] [place] [address] Dr. Ramses Dumas URon 08-13-2022 , QUAL Negative Normal NEGATIVE [facility] Comment on above: Performed By: #### C BC #### [facility] [address] [place] [address] Dr. Ramses Dumas PROF 14(COMP METB)on 022 Albumin [Mass/Vol] 3.8 g/dL Normal 3.4-5.0 [facility] Comment on above: Performed By: #### U RCX #### [facility] [address] [place] [address] Dr. Ramses Dumas Albumin/Globulin [Mass ratio] 0.9 {ratio} Normal [facility] Comment on above: Performed By: #### U RCX #### [facility] [address] [place] [address] Dr. Ramses Dumas ALP [Catalytic activity/Vol] 82 U/L Normal 46-116 [facility] Comment on above: Performed By: #### U RCX #### [facility] [address] [place] [address] Dr. Ramses Dumas ALT [Catalytic activity/Vol] 41 U/L Normal 14-59 [facility] Comment on above: Performed By: #### U RCX #### [facility] [address] [place] [address] Dr. Ramses Dumas Anion gap [Moles/Vol] 9.3 mmol/L Normal [facility] Comment on above: Performed By: #### U RCX #### [facility] [address] [place] [address] Dr. Ramses Dumas AST [Catalytic activity/Vol] 21 U/L Normal 15-37 [facility] Comment on above: Performed By: #### U RCX #### [facility] [address] [address] [address] Ramses Dumas Bilirubin [Mass/Vol] 0.3 mg/dL Normal 0.2-1.0 [facility] Comment on above: Performed By: #### U RCX #### [facility] [address] [address] [address] Ramses Dumas Calcium [Mass/Vol] 8.9 mg/dL Normal 8.5-10.1 [facility] Comment on above: Performed By: #### U RCX #### [facility] [address] [address] [address] Ramses Dumas Chloride [Moles/Vol] 105 mmol/L Normal 98-107 [facility] Comment on above: Performed By: #### U RCX #### [facility] [address] [place] [address] Dr. Ramses Dumas CO2 [Moles/Vol] 28.5 mmol/L Normal 21.0-32.0 [facility] Comment on above: Performed By: #### U RCX #### [facility] [address] [address] [address] Ramses Dumas Creatinine [Mass/Vol] 0.81 mg/dL Normal 0.55-1.02 [facility] Comment on above: Performed By: #### U RCX #### [facility] [address] [place] [address] Dr. Ramses Dumas EGFR-AF KITTITIAN >60 Normal >=60 [facility] Comment on above: Performed By: #### U RCX #### [facility] [address] [place] [address] Dr. Ramses Dumas EGFR-NON AF KITTITIAN >60 Normal >=60 [facility] Comment on above: Performed By: #### U RCX #### [facility] [address] [place] [address] Dr. Ramses Dumas Globulin (S) [Mass/Vol] 4.1 g/dL Normal [facility] Comment on above: Performed By: #### U RCX #### [facility] [address] [address] [address] Ramses Dumas Glucose [Mass/Vol] 100 mg/dL Normal 74-106 [facility] Comment on above: Performed By: #### U RCX #### [facility] [address] [place] [address] Dr. Ramses Dumas Potassium [Moles/Vol] 3.8 mmol/L Normal 3.5-5.1 [facility] Comment on above: Performed By: #### U RCX #### [facility] [address] [address] [address] Ramses Dumas Protein [Mass/Vol] 7.9 g/dL Normal 6.4-8.2 [facility] Comment on above: Performed By: #### U RCX #### [facility] [address] [place] [address] Dr. Ramses Dumas Sodium [Moles/Vol] 139 mmol/L Normal 136-145 [facility] Comment on above: Performed By: #### U RCX #### [facility] [address] [place] [address] Dr. Ramses Dumas Urea nitrogen [Mass/Vol] 10.0 mg/dL Normal 7.0-18.0 [facility] Comment on above: Performed By: #### U RCX #### [facility] [address] [place] [address] Dr. Ramses Dumas Urea nitrogen/Creatinine [Mass ratio] 12.3 mg/mg Normal [facility] Comment on above: Performed By: #### U RCX #### [facility] [address] [place] [address] Dr. Ramses Dumas SALICYLATEon 08-13-2022 SALICYLATE <2.8 Normal <=19.9 [facility] Comment on above: Performed By: #### U RCX #### [facility] [address] [place] [address] Dr. Ramses Dumas URINE MICROSCOPIC ONLYon BACTERIA LARGE Abnormal NONE SEEN [facility] Comment on above: Performed By: #### C BC #### [facility] [address] [place] [address] Dr. Ramses Dumas Bacteria identified Cx Nom (U) INDICATED Normal [facility] Comment on above: Performed By: #### C BC #### [facility] [address] [place] [address] Dr. Ramses Dumas CA OX CRYSTALS RARE Normal [facility] Comment on above: Performed By: #### C BC #### [facility] [address] [place] [address] Dr. Ramses Dumas CAST NONE SEEN Normal NONE SEEN [facility] Comment on above: Performed By: #### C BC #### [facility] [address] [place] [address] Dr. Ramses Dumas Crystals LM Nom (Urine sed) SEEN Abnormal NONE SEEN [facility] Comment on above: Performed By: #### C BC #### [facility] [address] [place] [address] Dr. Ramses Dumas Epithelial cells LM Ql (Urine sed) MODERATE Abnormal NONE SEEN /RARE [facility] Comment on above: Performed By: #### C BC #### [facility] [address] [place] [address] Dr. Ramses Dumas MUCOUS NONE SEEN Normal NONE SEEN [facility] Comment on above: Performed By: #### C BC #### [facility] [address] [place] [address] Dr. Ramses Dumas RBC 10-20 Abnormal 0-2 [facility] Comment on above: Performed By: #### C BC #### [facility] [address] [place] [address] Dr. Ramses Dumas WBC 20-50 Abnormal NONE SEEN [facility] Comment on above: Performed By: #### C BC #### [facility] [address] [place] [address] Dr. Ramses Dumas Pap IG,rfx Aptima HPV all pt hon 08-09-2022 . . Normal [facility] Comment on above: Performed By: #### C MP #### [facility] [address] [place] [address] Dr. Ramses Dumas DIAGNOSIS: Comment Abnormal [facility] Comment on above: Result Comment: EPIT HELIAL CELL ABNORMALITY. LOW GRADE SQUAMOUS INTRAEPITHELIAL LESION (LSIL). Performed By: #### C MP #### [facility] [address] [address] [address] Ramses Dumas Electronically signed by: Comment Normal [facility] Comment on above: Result Comment: Arnaud Joseph MD, Pathologist Performed By: #### C MP #### [facility] [address] [place] [address] Dr. Ramses Dumas HPV Aptima Negative Normal Negative [facility] Comment on above: Result Comment: This nucleic acid amplification test detects fourteen high-risk HPV types (16,18,31,33,35,39,45,51,52,56,58,59,66,68) without differentiation. Performed By: #### C MP #### [facility] [address] [place] [address] Dr. Ramses Dumas Methodology: Comment Normal [facility] Comment on above: Result Comment: This liquid based ThinPrep(R) pap test was screened with the use of an image guided system. Performed By: #### C MP #### [facility] [address] [place] [address] Dr. Ramses Dumas Note: Comment Normal [facility] Comment on above: Result Comment: The Pap smear is a screening test designed to aid in the detection of premalignant and malignant conditions of the uterine cervix. It is not a diagnostic procedure and should not be used as the sole means of detecting cervical cancer. Both false-positive and false-negative reports do occur. . Performed By: #### C MP #### [facility] [address] [place] [address] Dr. Ramses Dumas Pathologist Provided ICD10 Comment Normal [facility] Comment on above: Result Comment: [id number] Performed By: #### C MP #### [facility] [address] [place], [place] [id number] Dr. Ramses Dumas Performed by: Comment Normal [facility] Comment on above: Result Comment: Gail Ruano, Rafter Cutting Machine Operator (ASCP) Performed By: #### C MP #### [facility] [address] [place] [address] Dr. Ramses Dumas Reflex Criteria: Comment Normal [facility] Comment on above: Result Comment: See below for HPV testing results. . Performed By: #### C MP #### [facility] [address] [place], [place] [address] Dr. Ramses Dumas Specimen adequacy: Comment Normal [facility] Comment on above: Result Comment: Sati sfactory for evaluation. Endocervical and/or squamous metaplastic cells (endocervical component) are present. Performed By: #### C MP #### [facility] [address] [place], [place] [address] Dr. Ramses Dumas Vital Signs Date Time Vital Sign Value Performing Clinician Facility 04-05-2025 13:06-0400 Body mass index (BMI) [Ratio] 29.86 kg/m2 Jefferson Bernie [employer] Work Phone: [facility] 04-05-2025 13:06-0400 Body weight 83.92 kg [employer] Work Phone: [facility] 04-05-2025 13:06-0400 Diastolic blood pressure 72 mm[Hg] Jefferson Bernie DO Work Phone: [facility] 04-05-2025 13:06-0400 Systolic blood pressure 124 mm[Hg] Jefferson Bernie DO Work Phone: [facility] 01-29-2025 09:23-0400 Body temperature 98.1 [degF] Luis Felipe [facility]acruz [facility] [employer] 01-29-2025 09:23-0400 Diastolic blood pressure 86 mm[Hg] Luis Felipe Delacruz [facility] [employer] 01-29-2025 09:23-0400 Heart rate 81 /min Luis Felipe Delacruz MD [facility] [employer] 01-29-2025 09:23-0400 Respiratory rate 18 /min Luis Felipe Delacruz MD Work Phone: [facility] [employer] 01-29-2025 09:23-0400 SaO2% (BldA) [Mass fraction] 100 % Luis Felipe Delacruz MD Work Phone: [employer] 01-29-2025 09:23-0400 Systolic blood pressure 129 mm[Hg] Luis Felipe Delacruz MD Work Phone: [employer] 01-29-2025 06:00-0400 Body mass index (BMI) [Ratio] 29.01 kg/m2 Luis Felipe Delacruz MD Work Phone: [facility] [employer] 01-29-2025 06:00-0400 Body weight 81.5 kg Luis Felipe Delacruz MD Work Phone: [employer] 01-27-2025 10:01-0400 Body height 167.6 cm Luis Felipe Delacruz MD Work Phone: [facility] [employer] 01-22-2025 11:49-0400 Body temperature 97.7 [degF] Luis Felipe Delacruz MD Work Phone: [employer] 01-22-2025 11:49-0400 Diastolic blood pressure 75 mm[Hg] Luis Felipe Delacruz MD Work Phone: [employer] 01-22-2025 11:49-0400 Heart rate 54 /min Luis Felipe Delacruz MD Work Phone: [facility] [employer] 01-22-2025 11:49-0400 Respiratory rate 15 /min Luis Felipe Delacruz MD Work Phone: [employer] 01-22-2025 11:49-0400 SaO2% (BldA) [Mass fraction] 98 % Luis Felipe Delacruz MD Work Phone: [employer] 01-22-2025 11:49-0400 Systolic blood pressure 108 mm[Hg] Luis Felipe Delacruz MD Work Phone: [employer] 01-21-2025 23:45-0400 Body height 167.6 cm Luis Felipe Delacruz MD Work Phone: [facility] [employer] 01-21-2025 23:45-0400 Body mass index (BMI) [Ratio] 28.23 kg/m2 Luis Felipe Delacruz MD Work Phone: [facility] 01-21-2025 23:45-0400 Body weight 79.3 kg Luis Felipe Delacruz MD Work Phone: [facility] 04-10-2024 07:30-0400 Body temperature 98 [degF] MD Domingo Snyder Work Phone: [facility] 04-10-2024 07:30-0400 Diastolic blood pressure 73 mm[Hg] MD Domingo Snyder Work Phone: [facility] 04-10-2024 07:30-0400 Heart rate 75 /min MD Domingo Snyder Work Phone: [facility] 04-10-2024 07:30-0400 Respiratory rate 16 /min MD Domingo Snyder Work Phone: [facility] 04-10-2024 07:30-0400 SaO2% (BldA) [Mass fraction] 100 % MD Domingo Snyder Work Phone: [facility] 04-10-2024 07:30-0400 Systolic blood pressure 123 mm[Hg] MD Domingo Snyder Work Phone: [facility] 04-08-2024 22:44-0400 Body height 167.64 cm MD Domingo Snyder Work Phone: [facility] 04-08-2024 22:44-0400 Body weight 86.58 kg MD Domingo Snyder Work Phone: [facility] 03-20-2023 10:30-0400 Blood Pressure Location Nona RAYGOZA [facility] 03-20-2023 10:30-0400 Diastolic blood pressure 73 mm[Hg] Nona RAYGOZA [facility] 03-20-2023 10:30-0400 Heart rate 80 /min Nona RAYGOZA [facility] 03-20-2023 10:30-0400 Respiratory rate 16 /min Nona RAYGOZA [facility] 03-20-2023 10:30-0400 Systolic blood pressure 128 mm[Hg] Nona RAYGOZA [facility] Encounters Encounter Date Encounter Type Care Provider Facility Start: 04-24-2025 End: 04-24-2025 Mandeep Leiva MD Work Phone: [facility] Start: 04-24-2025 End: 04-24-2025 Mandeep Leiva MD Work Phone: [facility] Start: 04-24-2025 End: 04-24-2025 Postop follow up visit related to original px Patrick Leiva MD Work Phone: [facility] Comment on above: Encounter for remova l of sutures (Primary Dx) Start: 04-24-2025 End: 04-24-2025 ambulatory PATRICK A PETITTI Not Available Start: 04-10-2025 End: 04-10-2025 Mandeep Leiva MD Work Phone: [facility] Start: 04-10-2025 End: 04-10-2025 Mandeep Leiva MD Work Phone: [facility] Start: 04-10-2025 End: 04-10-2025 Office outpatient new 20 minutes Patrick Leiva MD Work Phone: [facility] Comment on above: Hordeolum externum o f right upper eyelid (Primary Dx); Neoplasm of unspecified behavior of bone, soft tissue, and skin Start: 04-10-2025 End: 04-10-2025 ambulatory PATRICK A PETITTI Not Available Start: 04-05-2025 End: 04-05-2025 Bamboo flowsfrancie Gibbs DO Work Phone: [facility] Start: 04-05-2025 End: 04-11-2025 Bamboo flowsheet Jefferson Laughlino DO Work Phone: [facility] Start: 04-05-2025 End: 04-11-2025 Clinisync Result Encounter Jefferson Cotazio DO Work Phone: [facility] Unsolicited Start: 04-05-2025 End: 04-05-2025 Patient encounter procedure Jefferson Laughlino DO Work Phone: [facility] Start: 04-05-2025 End: 04-05-2025 Periodic preventive med est patient 18-39 yrs Jefferson Cotazio DO Work Phone: [facility] Comment on above: Well woman exam with routine gynecological exam; H/O: hysterectomy; Night sweats Start: 04-05-2025 End: 04-05-2025 ambulatory JEFFERSON GIBBS Not Available Start: 03-16-2025 End: 03-16-2025 ambulatory Adonis Guerra Facility:[facility] Start: 01-26-2025 End: 01-29-2025 Evaluation and management of inpatient Luis Felipe Delacruz MD Work Phone: [facility]urg Comment on above: Bilateral ureteral c alculi; Acute postoperative pain Start: 01-26-2025 Emergency department patient visit DOMINGO SNYDER Facility:[facility] Start: 01-21-2025 End: 01-22-2025 Evaluation and management of inpatient Luis Felipe Delacruz MD Work Phone: [facility] MED SURG Comment on above: Acute postoperative pain (Primary Dx); Renal calculus, left Start: 01-21-2025 End: 01-21-2025 ambulatory Domingo Snyder MD Work Phone: [facility] Work Phone: Start: 01-21-2025 End: 01-21-2025 Departed Referred Domingo Snyder MD Work Phone: [facility] Start: 01-17-2025 End: 01-19-2025 ambulatory DOMINGO SNYDER [facility] Start: 01-17-2025 End: 01-19-2025 Subsequent hospital visit by physician Octavio Shi Rn [facility] Special Procedures Comment on above: Arrived VUR (vesicoureteric reflux) Start: 01-05-2025 End: 01-07-2025 ambulatory ADONIS Escalera [facility] Start: 12-02-2024 End: 12-02-2024 ambulatory Domingo Snyder MD Work Phone: [facility] Work Phone: Start: 12-02-2024 End: 12-02-2024 Departed Referred Domingo Snyder MD Work Phone: [facility] Start: 06-16-2024 End: 10-03-2024 ambulatory [place] Start: 04-09-2024 Non-patient / Non-visit MD Vicente Snyder Work Phone: [facility] Work Phone: Start: 04-08-2024 End: 04-10-2024 Evaluation and management of inpatient MD Domingo Snyder Work Phone: [facility] [facility] [address] Work Phone: Start: 04-08-2024 ambulatory Domingo Snyder Facility: [facility] Start: 12-04-2023 End: 12-05-2023 ambulatory Nona RAYGOZA Facility:[facility] Start: 12-04-2023 End: 12-04-2023 Patient encounter procedure Nona RAYGOZA [facility] Start: 04-10-2023 End: 04-10-2023 Patient encounter status Jefferson Gibbs DO Work Phone: [facility] Start: 04-09-2023 End: 04-10-2023 ambulatory Nona RAYGOZA Facility:[id number] Start: 03-20-2023 End: 03-21-2023 ambulatory Nona RAYGOZA Facility:[facility] Start: 03-20-2023 End: 03-20-2023 Patient encounter procedure Nona RAYGOZA [facility] Start: 02-16-2023 End: 02-16-[address] DOMINGO SNYDER . Facility:[facility] Start: 02-02-2023 End: 02-02-[address] DOMINGO SNYDER . Facility:[facility] Start: 12-26-2022 End: 12-27-2022 ambulatory Nona RAYGOZA Facility:[facility] Start: 12-26-2022 End: 12-26-2022 Patient encounter procedure Nona Yue IDALMIS [facility] Start: 12-16-2022 End: 12-17-[address] NONA RAYGOZA . Facility:[facility] Start: 12-15-2022 End: 12-16-[address] NONA RAYGOZA . Facility:[facility] Start: 11-27-[address] DOMINGO SNYDER . Facili ty:[facility] Start: 11-07-2022 End: 11-07-[address] DOMINGO SNYDER . Facility:[facility] Start: 11-04-2022 Encounter for preprocedural cardiovascular examination DR JEFFERSON GIBBS . [facility] Start: 11-04-2022 Encounter for preprocedural laboratory examination DR JEFFERSON GIBBS . [facility] Start: 11-03-2022 End: 11-04-2022 Encounter for preprocedural cardiovascular examination DR DOMINGO SNYDER . Facility:[facility] Start: 11-03-2022 End: 11-04-[address] DOMINGO SNYDER . Facility:[facility] Start: 09-20-2022 Encounter for preprocedural laboratory examination DR NONA RAYGOZA . [facility] Start: 09-18-2022 End: 09-18-[address] NONA RAYGOZA . Facility:[facility] Start: 09-16-2022 End: 09-17-[address] NONA RAYGOZA . Facility:[facility] Start: 09-16-2022 End: 09-17-2022 Encounter for preprocedural laboratory examination DR NONA RAYGOZA . Facility:[facility] Start: 09-05-2022 End: 09-05-2022 ambulatory ORA BOND . Facility:[facility] Start: 09-04-2022 End: 09-04-2022 ambulatory DANIEL MONTGOMERY Facility:[facility] Start: 09-04-2022 End: 09-04-2022 ambulatory Daniel Montgomery PUMP AND BLOWER OPERATOR.CREDIT CONSULTANT Work Phone: Urology Comment on above: NO SHOW (Primary Dx) Start: 09-04-2022 End: 09-04-2022 Telemedicine consultation with patient Daniel Montgomery PUMP AND BLOWER OPERATOR.CREDIT CONSULTANT Work Phone: [facility] Start: 08-28-2022 End: 08-29-[address] ERWIN MOORE Facility:[facility] Start: 08-22-2022 End: 08-24-[address] DOMINGO SNYDER . Facility:[facility] Start: 08-13-2022 End: 08-13-2022 ambulatory ORA BOND . Facility:[facility] Start: 07-31-2022 Encounter for cervic al smear to confirm findings of recent normal smear following initial abnormal smear DR JEFFERSON GIBBS . [facility] Start: 07-30-2022 End: 07-30-[address] DOMINGO SNYDER . Facility:[facility] Start: 07-30-2022 End: 07-30-2022 Encounter for cervical smear to confirm findings of recent normal smear following initial abnormal smear DR DOMINGO SNYDER . Facility:[facility] Start: 07-02-2022 End: 07-03-[address] DOMINGO SNYDER . Facility:[facility] Procedures Date Procedure Procedure Detail Performing Clinician Start: 04-10-2025 End: 04-10-2025 SKIN / NAIL BIOPSY Patrick Leiva MD Work Phone: Start: 04-05-2025 IGP,APTIMA HPV,AGE GDLN Jefferson Gibbs DO Work Phone: Start: 01-27-2025 Fluoroscopy during operation Edwina Espino MD Work Phone: Start: 01-27-2025 Culture bacterial qu anttative colony count urine Edwina Espino MD Work Phone: Start: 01-27-2025 CULTURE, BLOOD 1 Fco Hemphill DO Work Phone: Start: 01-27-2025 CULTURE, BLOOD 1 Fco Hemphill DO Work Phone: Start: 01-27-2025 Basic metabolic pane l calcium total Kyung Miester PUMP AND BLOWER OPERATOR - VOLLEYBALL PLAYER Work Phone: Start: 01-26-2025 Basic metabolic pane [...] laser li thotripsy of ureteric calculus Nona RAYGOZA Start: 08-22-2022 Cystoscopic insertio n of ureteric stent Nona RAYGOZA Start: 04-05-2020 Ureteroscopy Nona LEE Start: 03-01-2020 Ureteroscopy Nona LEE Comment on above: left Start: 02-27-2020 Cystoscopic insertio n of ureteric stent Nona RAYGOZA Start: 12-19-2019 Cystourethroscopy wi th dilation of urethral stricture Nona RAYGOZA Start: 05-30-2012 Cholecystectomy Nona RAYGOZA H/O: hysterectomy H/O: hysterectomy Jefferson Gibbs DO Work Phone: Plan of Treatment Date Care Activity Detail Author Start: 02-06-2031 DTaP/Tdap/Td vaccine (7 - Td or Tdap) DTaP/Tdap/Td vaccine (7 - Td or Tdap) [facility] Start: 04-09-2026 End: 04-09-2026 Patient encounter procedure 04/09/2026 9:00 AM EDT Office Visit [facility] [address] [place] [id number] Jefferson Gibbs DO [address] [place] [address] [facility] Start: 05-19-2025 Influenza vaccination Flu vaccine (Season Ended) [facility] Start: 05-15-2025 End: 05-15-2025 Patient encounter procedure 05/15/2025 3:30 PM EDT Office Visit [facility] [address] [place] [address] Patrick Leiva MD [address] [place] [address] [facility] Start: 04-24-2025 End: 04-24-2025 Patient encounter procedure [facility] Comment on above: Arrived Start: 04-10-2025 End: 04-10-2025 Patient encounter procedure [facility] Comment on above: Arrived Start: 04-05-2025 End: 04-05-2025 Patient encounter procedure 04/05/2025 1:00 PM EDT Office Visit [facility] [address] [place] [address] Jefferson Gibbs, DO [address] [place] [address] Arrived [facility] Comment on above: Arrived Start: 01-22-2025 End: 01-22-2025 CYSTOSCOPY URETERAL STENT INSERTION CYSTOSCOPY URETERAL STENT INSERTION Renal calculus, left 01/22/2025 9:28 AM EDT [facility] Start: 01-21-2025 Urine culture [facility] Start: 01-21-2025 Bacteria identified in Urine by Culture Urine Culture [facility] Start: 12-02-2024 Urine culture [facility] Start: 12-02-2024 Bacteria identified in Urine by Culture Urine Culture [facility] Start: 06-19-2024 COVID-19 Vaccine () COVID-19 Vaccine () [facility] Start: 04-10-2024 [facility] Start: 04-08-2024 Referral to Multigraph Operator [facility] Start: 04-08-2024 Hospital admission [facility] Start: 04-08-2024 [facility] Start: 06-19-2022 Influenza vaccination INFLUENZA (#1) [facility] Start: 10-19-2021 DEPRESSION ASSESSMENT DEPRESSION ASSESSMENT [facility] Start: 2021 HPV TESTING HPV TESTING [facility] Start: 2021 Screening for malignant neoplasm of cervix [facility] Start: 2012 PAP TESTING PAP TESTING [facility] Start: 2012 Screening for malignant neoplasm of cervix Pap smear [facility] Start: 2010 Urine microalbumin profile DTAP,TDAP,TD (1 - Tdap) [facility] Start: 2009 HEPATITIS C SCREENING HEPATITIS C SCREENING [facility] Start: 2009 Hepatitis C screening Hepatitis C screen [facility] Start: 2009 HIV SCREENING HIV SCREENING [facility] Start: 2006 HIV screening HIV screen [facility] Start: 2004 Varicella vaccine (1 of 2 - 13+ 2-dose series) Varicella vaccine (1 of 2 - 13+ 2-dose series) [facility] Start: 2003 Depression Screen Depression Screen [facility] Start: 1995 Polio vaccine (4 of 4 - 4-dose series) Polio vaccine (4 of 4 - 4-dose series) [facility] Start: 03-14-1992 COVID-19 VACCINE (#1) COVID-19 VACCINE (#1) [facility] Start: 1991 HEPATITIS B (1 of 3 - 3-dose series) HEPATITIS B (1 of 3 - 3-dose series) [facility] End: 01-24-2025 Basic metabolic 2000 panel - Serum or Plasma Basic metabolic panel Lab Routine Daily for 3 Days starting 01/22/2025 until 01/24/2025, 1 completed [facility] Comment on above: Daily for 3 Days starting 01/22/2025 unt il 01/24/2025, 1 completed End: 01-24-2025 CBC W Auto Differential panel - Blood CBC with Auto Differential Lab Routine Daily for 3 Days starting 01/22/2025 until 01/24/2025 [facility] [employer] Comment on above: Daily for 3 Days starting 01/22/2025 unt il 01/24/2025 Culture, Blood 1 [facility] Culture, Urine [facility] [employer] [facility] Comment on above: Release Upon Ordering for 1 Occurrences starting 01/22/2025 Cytology Cervical or vaginal smear or scraping study Pap Smear Pathology and Cytology Routine Well woman exam with routine gynecological exam Ordered: 04/05/2025 [employer] Work Phone: Comment on above: Ordered: 04/05/2025 Dermatopathology exam Dermatopat hology exam Pathology and Cytology Timed Neoplasm of unspecified behavior of bone, soft tissue, and skin Release Upon Ordering for 1 Occurrences starting 04/10/2025 [employer] Work Phone: Comment on above: Release Upon Ordering for 1 Occurrences starting 04/10/2025 End: 01-22-2025 Glucose [Mass/volume] in Serum or Plasma POCT Glucose Point of Care Testing Routine One Time for 1 Occurrences starting 01/22/2025 until 01/22/2025 [employer] Work Phone: Comment on above: One Time for 1 Occurrences starting 03/2025 until 01/22/2025 Human papilloma viru s DNA [Presence] in Unspecified specimen by Probe with amplification HPV DNA probe, amplified Microbiology Routine Well woman exam with routine gynecological exam Ordered: 04/05/2025 [facility] Comment on above: Ordered: 04/05/2025 Oxygen therapy [Mini mum Data Set] Initiate Oxygen Therapy Protocol Respiratory Care Routine As Needed until discontinued starting 01/21/2025 [employer] Comment on above: As Needed until discontinued starting Oxygen therapy [Mini mum Data Set] Initiate Oxygen Therapy Protocol Respiratory Care Routine As Needed until discontinued starting 01/26/2025 [employer] Comment on above: As Needed until discontinued starting Patient Education Bipolar Disord er (DC) [facility] [place] Instructions Know your Meds [facility] Work Phone: Patient referral [facility] Work Phone: End: 01-22-2025 Stone Analysis Stone Analysis Microbiology Routine One Time for 1 Occurrences starting 01/22/2025 until 01/22/2025 [employer] Work Phone: Comment on above: One Time for 1 Occurrences starting 03/2025 until 01/22/2025 Stone Analysis Stone Analysis Microbiology [employer] Label Print 01/22/2025 4:44 AM EDT [employer] End: 01-26-2025 Stone Analysis Stone Analysis Microbiology Routine One Time for 1 Occurrences starting 01/26/2025 until 01/26/2025 [employer] Comment on above: One Time for 1 Occurrences starting 01/17 until 01/26/2025 Immunizations Immunization Date Immunization Notes Care Provider Beata moore 08-01-2019 influenza virus vaccine, unspecified formulation Nona RAYGOZA [facility] 08-09-2018 tetanus toxoid, redu franco diphtheria toxoid, and acellular pertussis vaccine, adsorbed Nona RAYGOZA [facility] 08-08-2018 influenza virus vaccine, unspecified formulation Nona RAYGOZA [facility] 06-19-2004 hepatitis B vaccine, pediatric or pediatric/adolescent dosage Nona RAYGOZA [facility] 03-27-2004 hepatitis B vaccine, pediatric or pediatric/adolescent dosage Nona RAYGOZA [facility] 12-18-2003 hepatitis B vaccine, pediatric or pediatric/adolescent dosage Nona RAYGOZA [facility] 12-18-2003 measles, mumps and rubella virus vaccine Nona RAYGOZA [facility] 04-10-1993 DTaP, unspecified formulation Nona RAYGOZA [facility] 04-10-1993 poliovirus vaccine, unspecified formulation Nona RAYGOZA [facility] 12-28-1992 Hib, unspecified formulation Nona RAYGOZA [facility] 12-28-1992 measles, mumps and rubella virus vaccine Nona RAYGOZA [facility] 03-26-1992 Hib, unspecified formulation Nona RAYGOZA [facility] 01-18-1992 Hib, unspecified formulation Nona RAYGOZA [facility] 1991 Hib, unspecified formulation Nona RAYGOZA [facility] Payers Date Payer Category Payer Unknown [id number] 2023 Private Health Insurance [employer] [id number] 2023 Unknown [id number] 2023 Self-pay 2021 Medicaid [place] MEDICAID TERM 09/17 [facility] MEDICAID [id number] 2021-Present [phone] [address] [place] [address] Medicaid [id number] 1991 Unknown [id number] 2.16.840.1.752336.3.579.2. 593 1991 Unknown [id number] 2.16.840.1.088420.3.579.2. 593 1991 Unknown [id number] 2.16.840.1.366000.3.579.2. 593 1991 Unknown [id number] 2.16.840.1.622152.3.579.2. 593 1991 Unknown [id number] 2.16.840.1.422111.3.579.2. 593 1991 Unknown [id number] 2.16.840.1.533214.3.579.2. 593 1991 Unknown [id number] 2.16.840.1.201614.3.579.2. 593 1991 Unknown [id number] 2.16.840.1.784325.3.579.2. 593 1991 Unknown [id number] 2.16.840.1.921911.3.579.2. 593 1991 Unknown [id number] 2.16.840.1.488246.3.579.2. 593 1991 Unknown [id number] 2.16.840.1.338031.3.579.2. 593 1991 Unknown [id number] 2.16.840.1.359536.3.579.2. 593 1991 Unknown [id number] 2.16.840.1.275670.3.579.2. 593 1991 Unknown [id number] 2.16.840.1.675991.3.579.2. 593 1991 Unknown [id number] 2.16.840.1.678898.3.579.2. 593 1991 Unknown [id number] 2.16.840.1.294877.3.579.2. 593 1991 Unknown [id number] 2.16.840.1.750641.3.579.2. 727 1991 Unknown [id number] 2.16.840.1.777940.3.579.2. 727 1991 Unknown [id number] 2.16.840.1.578940.3.579.2. 727 1991 Unknown [id number] 2.16.840.1.392574.3.579.2. 727 1991 Unknown [id number] 2.16.840.1.040683.3.579.2. 174 1991 Unknown [id number] 2.16.840.1.990719.3.579.2. 175 1991 Unknown [id number] 2.16.840.1.134463.3.579.2. 175 1991 Unknown [id number] 2.16.840.1.316487.3.579.2. 175 1991 Unknown [id number] 2.16.840.1.961327.3.579.2. 175 1991 Unknown [id number] 2.16.840.1.272925.3.579.2. 718 1991 Unknown [id number] 2.16.840.1.803596.3.579.2. 1259 1991 Unknown [id number] 2.16.840.1.787692.3.579.2. 1259 1991 Unknown [id number] 2.16.840.1.176773.3.579.2. 1259 1959 Medicaid [id number] 1959 Self-pay [id number] 1959 Unknown [id number] Unknown [id number] 2.16.840.1.345730.3.579.2. 531 Unknown [id number] 2.16.840.1.281288.3.579.2. 531 Unknown [id number] 2.16.840.1.035395.3.579.2. 531 Unknown [id number] 2.16.840.1.089039.3.579.2. 531 Social History Date Type Detail Facility Tobacco smoking stat [facility] Tobacco smoking consumption unknown [facility] Start: 1991 Sex Assigned At Not on file [facility] Start: 08-20-2021 End: 04-10-2025 Tobacco smoking status Never smoked tobacco (finding) [facility] Tobacco smoking status Never [facility] Start: 01-22-2025 End: 04-10-2025 Sex Assigned At Female [facility] Start: 1990 Sex Assigned At Female Gabbie [facility] Start: 11-24-2024 End: 12-04-2024 Sex Female (finding) [facility] Start: 01-22-2025 End: 06-23-2025 Tobacco use and exposure Smokeless tobacco non-user [employer] Start: 01-22-2025 End: 01-27-2025 Alcoholic beverage intake Ex-drinker (finding) [employer] Start: 01-22-2025 End: 04-10-2025 History of Social function [employer] Has the electric, [employer] s, oil, or water company threatened to shut off services in your home in past 12Mo No [employer] (I/We) worried wheth er (my/our) food would run out before (I/we) got money to buy more. Never true [employer] Start: 01-10-2024 End: 04-24-2025 Alcoholic beverage intake Lifetime non-drinker (finding) [facility] Medical Equipment Procedure Code Equipment Code Equipment Origin al Text Equipment Identifier Dates Stent Uret 6fr L 26cm Percflx Hydr+ Tapr Tip Grad - [id number] , [id number] FDA Start: 01-22-2025 Stent Uret 6fr L 26cm Percflx Hydr+ Dbl Pgtl Thrd 2 - [id number] ()[id number] , [id number], [id number] FDA Start: 01-27-2025 Goals Date Patient Goal Desired Activity /State Functional Status Date Assessment Result Facility 04-10-2024 Functional status Patient at Baseline [facility] Work Phone: 03-20-2023 Functional Status N/A [facility] Mental Status Date Assessment Result Facility 04-10-2024 Cognitive function Cognitive Sta tus Patient at Baseline [facility] Work Phone: Clinical Notes 07-03-2022 to 04-24-2025 Patrick Leiva MD - 04/24/2025 10:25 AM Waylon Leiva MD - 04/10/2025 9:50 AM Nithya Sutton LPN - 04/05/2025 1:00 PM Balwinder Page RN - 01/29/2025 9:32 AM EDTDischarge Instructions Note Date & Type Note Facility 04-24-2025 History of Present illness Narrative Images from the original note were not included. Suture Removal Patient here for suture removal: No complaints of redness, drainage or swelling at site, compliant with wound care. Location: right lower back Procedure Performed: Punch biopsy Date of Procedure: 04/10/2025 Medications: none All pertinent medical history, medications, and allergies were reviewed. General Exam: alert, oriented to person, place, and time, normal affect, well appearing Unaccompanied A focused exam completed based on patient reported problems, see below: Skin Exam 1. ENCOUNTER FOR REMOVAL OF SUTURES Right Lower Back Sutures are intact, Skin edges are well-approximated, Mild erythema along incision line, Crusting noted along incision line Suture Removal: Procedure: Sutures were removed without difficulty. Tincture of Benzoin was applied around site in preparation of steri-strips. Steri-strips were applied Post-Procedure instructions: Instructed to discontinue wound care., Instructed to keep steri strips on for at least 5-7 days., Pathology results discussed. Next Visit: as scheduled documented in this encounter [facility] 04-10-2025 History of Present illness Narrative Images from the original note were not included. Lesions: Location: right shoulder, Duration: years Quality: denies pain Associated symptoms: change in color Treatments: none Lesion # 2: Location: left lower back Duration: 6 months Quality: denies pain, denies itch Associated symptoms: enlarged Treatments: none Location #3: right eyelid Duration: 1 week Quality: denies pain Associated symptoms: enlarged Treatments: warm moist compress, pimple patches Established patient All pertinent medical history, medications, and allergies were reviewed. General Exam: alert, oriented to person, place, and time, normal affect, well appearing Unaccompanied A focused exam completed based on patient reported problems, see below: Skin Exam 1. HORDEOLUM EXTERNUM OF RIGHT UPPER EYELID Right Upper Eyelid Pennside papule Favor possible stye, recommend patient continue warm compresses and OTC antibiotic ointment on the area until resolved, notify office if worsening despite treatment. 2. NEOPLASM OF UNSPECIFIED BEHAVIOR OF BONE, SOFT TISSUE, AND SKIN (2) Right Shoulder - Posterior Irregularly pigmented papule Lesion biopsy Type of biopsy: tangential Informed consent: discussed and consent obtained Informed consent comment: The risks and benefits of the biopsy were discussed. Risks include but are not limited to bleeding, infection, scarring, pain, and nerve damage. An opportunity to ask questions prior to the procedure was permitted and all questions were answered. Patient was prepped and draped in usual sterile fashion: area cleansed with alcohol. Anesthesia: the lesion was anesthetized in a standard fashion Anesthetic: 1% lidocaine w/ epinephrine 1-100,000 buffered w/ 8.4% NaHCO3 Instrument used: DermaBlade Hemostasis achieved with: electrodesiccation Outcome: patient tolerated procedure well Outcome comment: The specimen was placed in a prelabeled formalin container to be sent for pathology Post-procedure details: sterile dressing applied and wound care instructions given Post-procedure details comment: Emphasized need to contact clinic for any signs of infection, uncontrollable bleeding, or complications. Dressing type: bandage Additional details: Photo taken Amount of lidocaine used: 1.0 cc Specimen A - Dermatopathology exam Differential Diagnosis: lentigo vs lentigo maligna Check Margins: No Size of lesion: 0.7 x 0.7 cm Right Lower Back Atropic white plaque Lesion biopsy Type of biopsy: punch Informed consent: discussed and consent obtained Informed consent comment: The risks and benefits of the biopsy were discussed. Risks include but are not limited to bleeding, infection, scarring, pain, and nerve damage. An opportunity to ask questions prior to the procedure was permitted and all questions were answered. Patient was prepped and draped in usual sterile fashion: area cleansed with alcohol. Anesthesia: the lesion was anesthetized in a standard fashion Anesthetic: 1% lidocaine w/ epinephrine 1-100,000 buffered w/ 8.4% NaHCO3 Punch size: 3 mm Suture size: 4-0 Suture type: nylon Hemostasis achieved with: suture and electrodesiccation Outcome: patient tolerated procedure well Outcome comment: The specimen was placed in a prelabeled formalin container to be sent for pathology Post-procedure details: sterile dressing applied and wound care instructions given Post-procedure details comment: Emphasized need to contact clinic for any signs of infection, uncontrollable bleeding, or complications. Dressing type: bandage Additional details: Photo taken Amount of lidocaine used: 2.0 ml Specimen sent for H&E Number of sutures: 2 Specimen B - Dermatopathology exam Differential Diagnosis: morphea vs LS&A Check Margins: No Next Visit: 2 weeks documented in this encounter [facility] 04-05-2025 History of Present illness Narrative Reason for Appointment: Patient ID: Diana Barriga is a 34 y.o. female who presents [...] (BMI) of 40.1 to 44.9 in adult ([facility]) 04/10/2023 Encounter for follow-up examination after completed treatment for conditions other than malignant neoplasm 04/10/2023 IUD contraception 04/10/2023 Menorrhagia with regular cycle 04/10/2023 Anti-M isoimmunization affecting , 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[facility]) 03/18/2018 Anxiety 07/26/2020 Bipolar disorder ([facility]) 06/01/2023 Dysuria 06/01/2023 Entrapment of left ulnar nerve 06/01/2023 Feeling of incomplete bladder emptying 06/01/2023 Flank pain 06/01/2023 Frequency of urination 06/01/2023 History of chlamydia 07/26/2020 History of gestational diabetes 07/26/2020 History of kidney stones 06/01/2023 Hypercalciuria 06/01/2023 Hyperoxaluria 06/01/2023 Intrauterine ([facility]) 02/18/2018 Lesion of ulnar nerve 06/01/2023 Mass of scalp 06/01/2023 Muscle pain 06/01/2023 Microhematuria 06/01/2023 Astigmatism 05/05/2017 Nocturia 06/01/2023 Overweight 06/01/2023 Pyelonephritis 06/01/2023 Kidney stone 06/01/2023 Retroflexion of uterus 06/01/2023 Sprain of calcaneofibular ligament 06/01/2023 Streptococcal pharyngitis 06/01/2023 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/01/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 06/01/2023 Superficial thrombophlebitis 06/01/2023 Term delivery with labor in third trimester ([facility]) 08/06/2018 Urge incontinence 06/01/2023 Urinary urgency 06/01/2023 UTI (urinary tract infection) 06/01/2023 Mass of left breast 01/08/2024 Resolved Ambulatory Problems Diagnosis Date Noted Encounter for gynecological examination (general) (routine) without abnormal findings 04/10/2023 Past Medical History: Diagnosis Date Abnormal Pap smear of cervix Anxiety and depression Bipolar 1 disorder (HCC) Bladder prolapse, congenital ([facility]) Dysplasia of cervix S/P VH (vaginal hysterectomy) 05/06/2023 Yeast infection HISTORY PAST MEDICAL HISTORY SOCIAL HISTORY Past Medical History: Diagnosis Date Abnormal Pap smear of cervix Anxiety and depression Bipolar 1 disorder (HCC) Bladder prolapse, congenital ([facility]) Dysplasia of cervix History of kidney stones [...] nursing note reviewed. Exam conducted with a red cap present. Vitals: Estimated body mass index is 29.86 kg/m as calculated from the following: Height as of 06/16/23: 5' 6 . Weight as of this [...] them. Patient can also view results via [employer]. I reinforced importance of condom use for [...] Jefferson Gibbs DO documented in this encounter [facility] 01-29-2025 History of Present illness Narrative Patient given all discharge instructions and education. Patient and present for teaching. Patient voices she still has antibiotic at home and was instructed to continue to taking them. Patient also instructed to pull stent. Awaiting scripts from pharmacy. Images from the original note were not included. [facility] Office: [phone] Duncan Shelton DO, Rad Burks DO, Gerald [...] Luis Felipe Delacruz MD, Tavares Cardoza MD, aCsey Chavez DO, Analia Ring MD, Lyle Nguyen MD, Nathen Rogers MD, Cata Rogers MD, Johnathon Cerda MD, Makenzie Alberts CNP, Hodan Grove CNP, Casey Mercer CNP, Galilea Bradshaw DNP, Ritika Villaseñor CNP, Indu Montoya CNP, Angelica Chaney CNP, Vivian Kahn CNP, Garima Balbuena PA-C, Kyung Barkley CNP, Hetal Morris CNP, Yvette Canchola CNP, Gail Greene CNP, Dominguez Nunez PA-C, Mar Sanchez, WAYNE, Cecelia Pearson, KYUNG, Ivy Cortes, WAYNE, Felicita Rm, WAYNE, Pau Viera, WAYNE [facility] IN-PATIENT SERVICE [facility] Progress Note 01/29/2025 9:05 AM Name: Diana Barriga Acct: [id number] Room: [address] [place] [address] Day: 3 Admit Date: 01/26/2025 5:25 PM [...] Intake/Output Summary (Last 24 hours) at 01/29/2025 09 Last data filed at 01/28/2025 1756 Gross [...] results for input(s): LABALBU , LABA1C , I5KUKPL , FT4 , TSH , AST , ALT , LDH , GGT , ALKPHOS , BILITOT , BILIDIR , AMMONIA , AMYLASE , LIPASE , LACTATE , CHOL , HDL , CHOLHDLRATIO , TRIG , VLDL , ZKI91FR , PHENYTOIN , PHENYF , URICACID , POCGLU in the last 72 hours. Invalid input(s): PROT , E6AQSRJ , LABGGT , LDLCHOLESTEROL ABG:No results found for: POCPH , PHART , PH , POCPCO2 , KXB8RRJ , PCO2 , POCPO2 , PO2ART , PO2 , POCHCO3 , NEY0ZLK , HCO3 , NBEA , PBEA , BEART , BE , THGBART , THB , CCJ0DFM , [id number] , Y7AFCTGO , O2SAT , FIO2 Lab Results Component [...] Medical Decision Making: Medium Nathen Hemphill DO 01/29/2025 9:05 AM Images from the original note were not included. [facility] Office: [phone] Duncan Shelton DO, Rad Burks DO, Gerald [...] Rogers MD, Johnathon Cerda MD, Makenzie Alberts, CREDIT CONSULTANT, Hodan Grove, CREDIT CONSULTANT, Casey Mercer, CREDIT CONSULTANT, Galilea Bradshaw, [facility], Ritika Villaseñor, CREDIT CONSULTANT, Indu Montoya, CREDIT CONSULTANT, Angelica Chaney, CREDIT CONSULTANT, Vivian Kahn, CREDIT CONSULTANT, Garima Balbuena, PA-C, Kyung Barkley, CREDIT CONSULTANT, Hetal Morris, CREDIT CONSULTANT, Yvette Canchola, CREDIT CONSULTANT, Gail Greene, CREDIT CONSULTANT, Dominguez Nunez, PA-C, Mar Sanchez, CREDIT CONSULTANT, Cecelia Pearson, APPLICATIONS SCIENTIST, Ivy Cortes, CREDIT CONSULTANT, Felicita Rm, CREDIT CONSULTANT, Pau Viera, CREDIT CONSULTANT [facility] IN-PATIENT SERVICE [facility] Progress Note 01/28/2025 1:05 PM Name: Diana Barriga Acct: [id number] Room: [facility]/0321-02 Day: 2 Admit Date: 01/26/2025 5:25 PM [...] Net 2713.35 ml Labs: Hematology: Recent Labs 01/26/25 1851 01/27/25 0728 WBC 5.9 3.9 RBC 4.30 3.95 HGB 12.0 10.7* HCT 38.1 34.2* MCV 88.6 86.6 MCH 27.9 27.1 MCHC 31.5 31.3 RDW 12.7 12.6 PLT 261 238 MPV 9.0 9.1 Chemistry: Recent Labs 01/26/25 1851 01/27/25 0728 NA 139 139 K 3.7 3.9 CL 106 108* CO2 21 22 GLUCOSE 126* 85 BUN 12 11 CREATININE 0.9 0.7 ANIONGAP 12 9 LABGLOM 87 >90 CALCIUM 8.6 8.3* No results for input(s): LABALBU , LABA1C , T2NGPVE , FT4 , TSH , AST , ALT , LDH , GGT , ALKPHOS , BILITOT , BILIDIR , AMMONIA , AMYLASE , LIPASE , LACTATE , CHOL , HDL , CHOLHDLRATIO , TRIG , VLDL , XHZ08HK , PHENYTOIN , PHENYF , URICACID , POCGLU in the last 72 hours. Invalid input(s): PROT , I1HOFSR , LABGGT , LDLCHOLESTEROL ABG:No results found for: POCPH , PHART , PH , POCPCO2 , VHY4ZOE , PCO2 , POCPO2 , PO2ART , PO2 , POCHCO3 , RBP8XUL , HCO3 , NBEA , PBEA , BEART , BE , THGBART , THB , TZB4RTZ , CUVB4WJE , U6SFJASJ , O2SAT , FIO2 Lab Results Component [...] ppx Medical Decision Making: Daja Hemphill DO 01/28/2025 1:05 PM Urology Progress [...] [P.O.:25; I.V.:2508.4] Out: 400 [Urine:400] Recent Labs 01/26/25 1851 01/27/25 0728 WBC 5.9 3.9 HGB 12.0 10.7* HCT 38.1 34.2* MCV 88.6 86.6 PLT 261 238 Recent Labs 01/26/25 1851 01/27/25 0728 NA 139 139 K 3.7 3.9 CL 106 108* CO2 21 22 BUN 12 11 CREATININE 0.9 0.7 Recent Labs 01/26/25 1753 COLORU [place]* PHUR 6.5 WBCUA 20 TO 50 RBCUA [...] mass loss Fluid Accumulation: Unable to assess Real Estate Transaction Manager Strength: Not Performed Nutrition Assessment: 34 y.o.F [...] Measures: Height: 167.6 cm (5' 5.98 ) [place] Body Weight (IBW): 130 lbs (59 kg) Current Body Weight: 81.6 kg (179 lb 14.3 oz), 138.4 % IBW. Current BMI (kg/m2): 29 Estimated Daily Nutrient Needs: Energy Requirements Based On: Formula Weight Used for Energy Requirements: Current Energy (kcal/day): 3876-8910 kcals/day Weight Used for Protein Requirements: Current Protein (g/day): 82-92 g/day Method Used for Fluid Requirements: 1 ml/kcal Fluid (ml/day): 9130-5178 ml/day Nutrition Diagnosis: Inadequate oral intake related [...] determine Anastasiya Medel RDN, LD, MS Contact: [phone] Images from the original note were not included. [facility] Office: [phone] Duncan Shelton DO, Rad Burks DO, Gerald [...] Rogers MD, Johnathon Cerda MD, Makenzie Alberts, CREDIT CONSULTANT, [place], CREDIT CONSULTANT, Casey Mercer, CREDIT CONSULTANT, Galilea Bradshaw, [facility], Ritika Villaseñor, CREDIT CONSULTANT, Indu Montoya, CREDIT CONSULTANT, Angelica Chaney, CREDIT CONSULTANT, Vivian Kahn, CREDIT CONSULTANT, Garima Balbuena, PA-C, Kyung Barkley, CREDIT CONSULTANT, Hetal Morris, CREDIT CONSULTANT, Yvette Canchola, CREDIT CONSULTANT, Gail Greene, CREDIT CONSULTANT, Dominguez Nunez, PA-C, Mar Sanchez, CREDIT CONSULTANT, Cecelia Pearson, APPLICATIONS SCIENTIST, Ivy Cortes, CREDIT CONSULTANT, Felicita Rm, CREDIT CONSULTANT, Pau Viera, CREDIT CONSULTANT [facility] IN-PATIENT SERVICE [facility] Progress Note 01/27/2025 9:31 AM Name: Diana Barriga Acct: [id number] Room: 0321/0321-02 Day: 1 Admit Date: 01/26/2025 5:25 PM PCP: Domingo Snyder MD Code Status: Full Code Subjective: Started having increased pain and pressure on left side on Thursday. Called Urologist yesterday who recommended going to [place]. She had a CT scan which showed [...] Intake/Output Summary (Last 24 hours) at 01/27/2025 0931 Last data filed at 01/27/2025 0429 Gross [...] results for input(s): LABALBU , LABA1C , E7ZVJFB , FT4 , TSH , AST , ALT , LDH , GGT , ALKPHOS , BILITOT , BILIDIR , AMMONIA , AMYLASE , LIPASE , LACTATE , CHOL , HDL , CHOLHDLRATIO , TRIG , VLDL , EPR16TD , PHENYTOIN , PHENYF , URICACID , POCGLU in the last 72 hours. Invalid input(s): PROT , T4BERMG , LABGGT , LDLCHOLESTEROL ABG:No results found for: POCPH , PHART , PH , POCPCO2 , DCS7WIY , PCO2 , POCPO2 , PO2ART , PO2 , POCHCO3 , BWX6XNA , HCO3 , NBEA , PBEA , BEART , BE , THGBART , THB , MHD2HLZ , XODX9UCD , U1BURFSY , O2SAT , FIO2 Lab Results Component [...] Medical Decision Making: Medium Nathen Hemphill DO 01/27/2025 9:31 AM Urology Progress [...] CREATININE 0.9 Recent Labs 01/26/25 1753 COLORU [place]* PHUR 6.5 WBCUA 20 TO 50 RBCUA [...] 4:28 PM EDT documented in this encounter [facility] 01-29-2025 Hospital course Narrative Images from the original note were not included. [facility] Office: [phone] Duncan Shelton DO, Rad Burks DO, Gerald [...] Rogers MD, Johnathon Cerda MD, Makenzie Alberts, CREDIT CONSULTANT, [place], CREDIT CONSULTANT, Casey Mercer, CREDIT CONSULTANT, Galilea Bradshaw, [facility], Ritika Villaseñor, CREDIT CONSULTANT, Indu Montoya, CREDIT CONSULTANT, Angelica Chaney, CREDIT CONSULTANT, Vivian Kahn, CREDIT CONSULTANT, Garima Balbuena, PA-C, Kyung Barkley, CREDIT CONSULTANT, Hetal Morris, CREDIT CONSULTANT, Yvette Canchola, CREDIT CONSULTANT, Gail Greene, CREDIT CONSULTANT, Dominguez Nunez PA-C, Mar Sanchez, CREDIT CONSULTANT, Cecelia Pearson, [facility], Ivy Cortes, CREDIT CONSULTANT, Felicita Rm, CREDIT CONSULTANT, Pau Viera, CREDIT CONSULTANT [facility] IN-PATIENT SERVICE [facility] Discharge Summary Patient ID: Diana Barriga : 1990 ACCOUNT: [id number] Patient's PCP: Domingo Snyder MD Admit Date: [...] Home Physician Follow Up: Domingo Snyder MD [address] [facility] [address] Schedule an appointment as soon as possible for a visit in 1 week(s) Adonis Guerra MD [address] [place] [id number] Follow up Renal US in 6 [...] narcotics Please call attending physician or hospital solid glass rod dowel machine operator with questions Call or Present to [...] this patient's care. documented in this encounter [facility] 01-28-2025 Hospital Discharge instructions Glen Desai MD - 01/28/2025 7:35 AM EDT Ureteroscopy [...] narcotics Please call attending physician or hospital solid glass rod dowel machine operator with questions Call or Present to [...] call with questions. documented in this encounter [facility] 01-22-2025 History of Present illness Narrative CLINICAL PHARMACY NOTE: MEDS TO BEDS Total # of Prescriptions Filled: 4 The following medications were delivered to the patient: Tamsulosin 0.4 mg Sulfamethoxazole-trimethoprim 800-160 Hyoscyamine 0.125 mg Oxycodone 5 mg Additional Documentation: dropped off to patient in room 350 on 01/22/25 at 2 pm by eboni kline. Copay was 11.63 and paid by clover documented in this encounter [facility] 01-22-2025 Hospital course Narrative Images from the original note were not included. [facility] Office: [phone] Duncan Shelton DO, Rad Burks DO, Gerald [...] Mercer CNP, Galilea Bradshaw DNP, Ritika Villaseñor, WAYNE, Indu Montoya CNP, Angelica Chaney CNP, Vivian Kahn CNP, Garima Balbuena PA-C, Kyung Barkley CNP, Hetal Morris CNP, Yvette Canchola, WAYNE, Gail Greene, WAYNE, Dominguez Nunez PA-C, Mar Sanchez, WAYNE, Cecelia Pearson, KYUNG, Ivy Cortes CNP, Felicita Rm CNP, Pau Viera, WAYNE [facility] IN-PATIENT SERVICE [facility] Discharge Summary Patient ID: Diana Barriga : 1990 ACCOUNT: [id number] Patient's PCP: Domingo Snyder MD Admit Date: [...] who was transferred to our hospital from [facility] for evaluation of flank pain. CT [...] Home Physician Follow Up: Adonis Guerra MD [address] [place] [id number] Schedule an appointment as soon as possible [...] Your Medications [facility] [place] [place] [facility] [id number] [facility] - P [phone] - F [phone] [address] [facility] [address] hyoscyamine 0.125 MG tablet oxyCODONE 5 MG immediate release tablet sulfamethoxazole-trimethoprim 800-160 MG per tablet tamsulosin 0.4 MG capsule No discharge procedures on file. Time Spent on discharge is 33 mins in patient examination, evaluation, counseling as well as medication reconciliation, prescriptions for required medications, discharge plan and follow up. Electronically signed by Nathen Hemphill DO 01/22/2025 1:50 PM Thank you Domingo Becker MD for the opportunity to be involved in this patient's care. v documented in this encounter [facility] 01-22-2025 Hospital Discharge instructions Zia Covington MD - 01/22/2025 9:27 AM EDT Cystoscopy, [...] narcotics Please call attending physician or hospital solid glass rod dowel machine operator with questions Call or Present to ED if fever (> 101F), intractable nausea vomiting or pain. Rx e-prescribed Pt should follow up with Dr. Guerra, in 1-2 weeks, for definitive stone treatment, call to confirm appointment documented in this encounter [facility] 04-10-2024 Discharge summary Note Date/Time April 10, 2024 7:10am [facility] [address] [place] [address] Discharge Summary Signed Patient: Diana Barriga MR#: [id number] : 1990 Acct:[id number] Age/Sex: 33 / F Adm Date: 4 Loc: Room: [address] [place] [address]: Arnulfo Aviles MD Copies to: [...] Dr. Fenton but wants to switch to [place]. Along with this patient is in marriage counseling with her current and that today's session was not good. Patient stated she needs to be home to take care of her kids, the custody [place], and her marriage. Patient upset because she missed her son's play and has plans to take kids to [place] tomorrow. Patient denies any suicidal ideation denies hallucinations denies racing thoughts. Patient reports that there is no changes in her appetite or sleep. Patient reports that she feels fine. She has tried a lot of medications in the past and believes none of them have worked. He is going to [place] for psych therapy. He wants to try [...] She has an appointment coming up with [place] counseling. She deniedrecent suicide attempts or self injures [...] Restriction Diet: Regular Instructions: Bipolar Disorder (DC), [facility] Behavioral Health [place] Instructions, Know your Meds [...] signed by Arnulfo Aviles MD> 04/10/24 0929 [facility] Work Phone: 1(838) 469-874506-22-2024 History and physical note Author Arnulfo metzger [facility] April 09, 2024 9:09am Note Date/Time April 09, 2024 8:43 am [facility] [address] [place] [address] Psychiatry H&P Signed Patient: Diana Barriga MR#: [id number] : 1990 Acct:[id number] Age/Sex: 33 / F Adm Date: 4 Loc: Room: [address] [place] [address] Type: ADM IN Attending Dr: Arnulfo Aviles MD Copies to: MD Domingo Tate MD~ Date of Service: 04/09/2024 [facility] Narrative Narrative: Ms. Barriga is a 33 [...] Dr. Fenton but wants to switch to [place]. Along with this patient is in marriage counseling with her current and that today's session was not good. Patient stated she needs to be home to take care of her kids, the custody [place], and her marriage. Patient upset because she missed her son's play and has plans to take kids to [place] tomorrow. Patient denies any suicidal ideation denies hallucinations denies racing thoughts. Patient reports that there is no changes in her appetite or sleep. Patient reports that she feels fine. She has tried a lot of medications in the past and believes none of them have worked. He is going to [place] for psych therapy. He wants to try therapy before any medications. 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 Documented By: Arnulfo Aviles MD 4 0868 Signed By: <Electronically signed by Arnulfo Aviles MD> 04/09/24 0909 [facility] Work Phone: 1(605) 941-911906-02-2023 Hospital Discharge instructions Follow Up Care 03/20/2023 11:51:58 With:IDALMIS BORDEN, Nona Turner, URL Address: [address] [place], [place] [id number]- When: Unknown [facility] 06-02-2023 Hospital Discharge instructions Patient Education 03/20/2023 [...] include: ?8 oz (237 mL) of milk, vdsbema-ukdttomkjfpt-ookio milk, and calcium- fortifiedfruit juice. Calcium-fortified means [...] ?Spinach (cooked), rhubarb, beets, sweet potatoes, and Belgian chard. ?Peanuts. ?Potato chips, indian fries, and baked potatoes with skin on. ?Nuts and nut products. ?Chocolate. If you regularly take a diuretic medicine, make sure to eat at least 1 or 2 servings of fruits or vegetables that are high in potassium each day. These include: ?Avocado. ?Banana. ?[place], prune, carrot, or tomato juice. ?Baked potato. [...] magnesium, fish oil, or vitamin B6. Take adcw-hbx-ykormzp and prescription medicines only as told by [...] Casseroles. Pizza. Lasagna. Frozen meals. Potato chips. Angolan fries. The items listed above may not [...] provider. Document Revised: 06/16/2022 Document Reviewed: 06/16/2022 [employer] Patient Education 2022 Dining Secretary. Follow Up Care 12/26/2022 08:46:46 With:IDALMIS BORDEN, Nona Turner, URL Address: [facility] [address], [place] [id number]- When: Unknown [facility] 01-20-2023 NoteOPERATIVE NOTE OPERATION DATE: 11/07/2022 PROCEDURE: Mery endometrial ablation with LEEP. PREOPERATIVE DIAGNOSIS: Cervical dysplasia, menorrhagia. POSTOPERATIVE DIAGNOSIS: Cervical dysplasia, menorrhagia. ANESTHESIA: General. SURGEON: Jefferson Gibbs D.O. PHYSICIAN OFFICE REP: None. BLOOD LOSS: 50 mL. URINE OUTPUT: [...] taken to Recovery Room in stable condition.[id number] Discharge instructions Follow Up Care 09/25/2022 13:54:04 With:IDALMIS BORDEN, Nona Turner, URL Address: [address] [place], [place] [id number]- When: Unknown [facility] 12-01-2022 NoteOPERATIVE NOTE OPERATION DATE: 09/18/2022 PREOPERATIVE [...] usual fashion. I started by passing a 22-Angolan Olympus cystoscope per urethra and into the [...] removed. She was then transferred to a gurrangeley and wheeled to PACU in stable condition.[facility] [id number] NoteHNO ID: [id number] Author: Daniel Montgomery APRN.CREDIT CONSULTANT Service: ? Author Type: Nurse Practitioner Type: Progress Notes Filed: 09/04/2022 7:46 AM Note Text: The patient did not show up for this appointment. The patient did not show up for this appointment.[facility]so[facility]pa20-11-7947 History of Present illness Narrative* Daniel Montgomery APRN.CREDIT CONSULTANT - 09/04/2022 7:40 AM EST The patient did not show up for this appointment. The patient did not show up for this appointment. [facility] NotePROCEDURE: XR ANKLE LT MIN 3 V COMPARISON: None. HISTORY: Sprain of calcaneofibular ligament FINDINGS: BONES:No fracture, acute abnormality, or significant arthropathy. SOFT TISSUES:Extensive lateral soft tissue swelling EFFUSION:None visible. OTHER: Negative. IMPRESSION: Lateral soft tissue swelling. No acute fracture Electronically authenticated by: GLEN PEREZ Date: 2022-07-03 07:09[facility] Future Appointments Appointment Date:03/20/2023 10:15:00 AM Scheduled Provider:Nona RAYGOZA MD Location:[facility] Appointment Type:URO Office Visit [facility] evaluation + Plan note Future Appointments Appointment Date:12/04/2023 09:45:00 AM Scheduled Provider:Nona RAYGOZA MD Location:[facility] Appointment Type:URO Office Visit Diagnostic Tests Pending * Electrolyte Panel 03/20/23 [facility] evaluation note* Diagnosis NO SHOW- Primary [facility] encounter [facility]* Diagnosis Onset Date Resolution Status Bipolar disorder acute [facility] Work Phone: evaluation noteNo assessment information available [facility] Work Phone: evaluation note* Diagnosis VUR (vesicoureteric reflux) Vesicoureteral reflux, unspecified or without reflux nephropathy documented in this encounter [facility] note* Diagnosis Left ureteral calculus- Primary Calculus of ureter Renal calculus, left Calculus of kidney Acute postoperative pain Other acute postoperative pain Acute cystitis without hematuria Acute cystitis Acute postoperative pain Other acute postoperative pain Urinary tract obstruction by kidney stone Calculus of kidney documented in this encounter [facility] note* Diagnosis Hydronephrosis with renal calculous obstruction- Primary Bilateral ureteral calculi Acute postoperative pain Other acute postoperative pain Left ureteral calculus Calculus of ureter S/P cystoscopy with ureteral stent placement Pyelonephritis Pyelonephritis, unspecified documented in this encounter [facility] [employer] [facility] Diagnosis Well woman exam with routine gynecological exam Routine gynecological examination H/O: hysterectomy Acquired absence of both cervix and uterus Night sweats Generalized hyperhidrosis documented in this encounter [facility]* Diagnosis Hordeolum externum of right upper eyelid- Primary Neoplasm of unspecified behavior of bone, soft tissue, and skin documented in this encounter [facility] HealthcareEvaluation note* Diagnosis Encounter for removal of sutures- Primary documented in this encounter [facility] HealthcareHospital course Narrative No data available for this section [facility] progress note No data available for this section [facility] reason for visit Narrative* Imaging (Routine) - Open Specialty Diagnoses / Procedures Referred By Luis grigsby Referred To Contact Radiology Diagnoses VUR (vesicoureteric reflux) Procedures FL VOIDING URETHROCYSTOGRAM S&I Adonis Guerra MD [address] [place] [address] Phone: tel: fax: Referral ID Status Reason Start Date Expiration Date Visits Re quested Visits Authorized [id number] Open 01/09/2025 01/09/2026 1 1 [employer] for visit Narrative* Auth/Cert Specialty Diagnoses / Procedures Referred By Luis grigsby Referred To Contact Diagnoses Urinary tract obstruction by kidney stone UTI (urinary tract infection) Ureteral calculi Luis Felipe Delacruz MD [address] [place] [address] Phone: tel: fax: [employer] [address] [place] [address] Referral ID Status Reason Start Date Expiration Date Visits Re quested Visits Authorized [id number] [employer]Reason for visit Narrative* Auth/Cert Specialty Diagnoses / Procedures Referred By Luis grigsby Referred To Contact Diagnoses Hydronephrosis, left Luis Felipe Delacruz MD [address] [place] [address] Phone: tel: fax: [facility] [address] [place] [address] Referral ID Status Reason Start Date Expiration Date Visits Re quested Visits Authorized [id number] 1 1 [facility] Summary Purpose Family History No [...] or prosecute any alcohol or drug abuse patient.[facility] Reason for Visit (unrecogniz ed section and content) Reason Onset Date Comments No Show 09/04/2022 No show Reason Comments Gynecologic Exam Reason Comments Suspicious Skin Lesion Reason Comments Suture / Staple Removal Care Teams (unrecognized sec tion and content) Edger Tailer Relationship Specialty Start Date End Date Domingo Snyder MD [address] [place] [address] Referring Family Medicine 09/01/22 Team Status: Active [...] December 02, 2024 End: December 02, 2024 Edger Tailer Relationship Specialty Start Date End Date Domingo Snyder MD [address] [place] [address] PCP - General Family Medicine 01/05/25 Edger Tailer Relationship Specialty Start Date End Date Domingo Snyder MD [address] [place] [phone] PCP - General Family Medicine 01/05/25 Edger Tailer Relationship Specialty Start Date End Date Domingo Snyder MD [address] [place] [address] PCP - General Family Medicine 01/05/25 Team Status: Inactive Member Role Status Dates Javi Tanner PA-C Attending Provider Active Start: January 21, 2025 End: January 21, 2025 Edger Tailer Relationship Specialty Start Date End Date Domingo Snyder MD [address] [place] [facility] [place] [id number] PCP - General Family Medicine 01/05/25 Edger Tailer Relationship Specialty Start Date End Date Domingo Snyder MD [address] [place] [facility] [place] [phone] PCP - General Family Medicine 04/13/23 Edger Tailer Relationship Specialty Start Date End Date Domingo Snyder MD [address] [place] [facility] [place] [phone] PCP - General Family Medicine 04/13/23 Edger Tailer Relationship Specialty Start Date End Date Domingo Snyder MD [address] [place] [facility] [place] [phone] PCP - General Family Medicine 04/13/23 Edger Tailer Relationship Specialty Start Date End Date Domingo Snyder MD [address] [place] [facility] [place] [phone] PCP - General Family Medicine 04/13/23 Edger Tailer Relationship Specialty Start Date End Date Domingo Snyder MD [address] [place] [facility] [place] [id number] PCP - General Family Medicine 04/13/23 INFORMATION SOURCE (unrecogn ized section and content) DATE CREATED AUTHOR 09/06/2022 [facility] DATE CREATED AUTHOR AUTHOR'S ORGANIZ ATION 02/19/2023 [facility] DATE CREATED AUTHOR AUTHOR'S ORGANIZ ATION 12/06/2023 [facility] DATE CREATED AUTHOR AUTHOR'S ORGANIZ ATION 10/05/2024 [place] DATE CREATED AUTHOR AUTHOR'S ORGANIZ ATION 01/16/2025 Lali aguilar DATE CREATED AUTHOR AUTHOR'S ORGANIZ ATION 01/25/2025 [facility] DATE CREATED AUTHOR AUTHOR'S ORGANIZ ATION 02/03/2025 [facility] DATE CREATED AUTHOR AUTHOR'S ORGANIZ ATION 04/05/2025 [facility] DATE CREATED AUTHOR AUTHOR'S ORGANIZ ATION 04/27/2025 [facility] dical Specialists [facility] Goals (unrecognized section and content) Goals may [...] Daily Amount: 20 mg 8 tablet 01/22/2025 hyoscyamine (LEVSIN) 0.125 MG tablet Take 1 [...] Daily Amount: 20 mg 8 tablet 01/29/2025 5 Scheduled Active and Recently Administ ered Medications (unrecognized section and content) Medication Order 01/20/2025 01/21/2025 01/22/2025 ceFAZolin (ANCEF) 2000 mg in sterile water 20 mL IV syringe (COMPLETED) 2,000 mg, IntraVENous, PREMIUM REPRESENTATIVE TO O.R., On 01/22/25 at 0930, For 1 dose, Administer over 5 mins. 0928 (MAR Hold - Provider: Tamy Autohold - Reason: Unreviewed Transfer Orders)0930 (Automatically Held - Provider: Tamy Autohold)0939 (Given - Provider: KONSTANTIN Baird CRNA)0940 ([facility] Unhold - Provider: KONSTANTIN Baird CRNA) cefTRIAXone (ROCEPHIN) 1,000 mg in sterile water 10 mL IV syringe 1,000 mg, IntraVENous, EVERY 24 HOURS, First dose on 01/22/25 at 1900, For 10 days, Administer as slow IV Push over 5 mins Reconstitute 1 g vials with 9.6 mL of designated diluent to produce a 100 mg/mL solution. 927 (MAR Hold - Provider: Tamy Autohold - Reason: Unreviewed Transfer Orders)1027 ([facility] Unhold - Provider: Anastasiya Coates RN)1900 (Due - Provider: Sudeep Ordonez [facility]) enoxaparin (LOVENOX) injection 40 mg 40 mg, [...] Tamy Autohold - Reason: Unreviewed Transfer Orders)1027 ([facility] Unhold - Provider: Anastasiya Coates RN) ibuprofen (ADVIL;MOTRIN) tablet 600 mg (COMPLETED) 600 mg, Oral, ONCE, 1 dose, On 01/22/25 at 0015 7169 (Given - Provider: Aundrea Beltre RN) tamsulosin (FLOMAX) capsule 0.4 mg 0.4 mg, Oral, DAILY, First dose on 01/22/25 at 0900, Until Discontinued, Do not crush or break. Give 30 minutes after a full meal to limit risk of orthostatic hypotension/falls. 0834 (Given - Provid er: Anastasiya Coates RN)09 (DEC Hold - Provider: Tamy Autohold - Reason: Unreviewed Transfer Orders)102 ([facility] Unhold - Provider: Anastasiya Coates RN) Continuous Medication Order 01/20/2025 01/21/2025 01/22/2025 0.9 % sodium chloride infusion (CANCELED) IntraVENous, at 150 mL/hr, CONTINUOUS, Starting on 01/22/25 at 0015 0002 (New Bag - Prov ider: Aundrea Beltre, FELA)0557 (New Bag - Provider: Aundrea Beltre RN)09 (DEC Hold - Provider: Tamy Autohold - Reason: Unreviewed Transfer Orders)102 ([facility] Unhold - Provider: Anastasiya Coates RN) PRN Medication Order 01/20/2025 01/21/2025 01/22/2025 acetaminophen (TYLENOL) suppository 650 mg(Linked Group 1) 650 mg, Rectal, EVERY 6 HOURS PRN, Starting on 01/21/25 at 2346, Until Discontinued, Pain Mild (1-3), allowed for higher pain score per patient request, Fever, For temp greater than 100.4 F (38 C), Administer if oral route cannot be used. 927 (DEC Hold - Pro vider: [facility] Autoh[employer] - Reason: Unreviewed Transfer Orders)102 ([facility] Unhold - Provider: Anastasiya Coates RN) acetaminophen (TYLENOL) tablet 650 mg(Linked Group 1) 650 mg, Oral, EVERY 6 HOURS PRN, Starting on 01/21/25 at 2346, Until Discontinued, Pain Mild (1-3), allowed for higher pain score per patient request, Fever, For temp greater than 100.4 F (38 C), Maximum dose of acetaminophen is 4000 mg from all sources in 24 hours. 927 (DEC Hold - Pro vider: [facility] [employer] - Reason: Unreviewed Transfer Orders)102 ([facility] Unhold - Provider: Anastasiya Coates RN) magnesium [...] 30ml/min 0928 (DEC Hold - Pro vider: [facility] [employer] - Reason: Unreviewed Transfer Orders)1027 ([facility] Unhold - Provider: Anastasiya Coates RN) morphine (PF) injection 2 mg(Linked Group 2) 2 mg, IntraVENous, EVERY 2 HOURS PRN, Starting on Sat 425 at 2346, Until Discontinued, Pain Moderate (4-6), [...] (See Alternative - Provider: Anastasiya Coates RN)0928 ([facility] Hold - Provider: [facility] [employer] - Reason: Unreviewed Transfer Orders)1027 ([facility] Unhold - Provider: Anastasiya Coates RN) morphine [...] Aundrea Beltre RN)0832 (Given - Provider: Anastasiya Coates RN)0928 ([facility] Hold - Provider: [facility] [employer] - Reason: Unreviewed Transfer Orders)1027 ([facility] Unhold - Provider: Anastasiya Coates, RN) ondansetron (ZOFRAN) injection 4 mg(Linked Group 3) 4 mg, IntraVENous, EVERY 6 HOURS PRN, Starting on 4/5/25 at 2346, Until Discontinued, Nausea, Vomiting, Administer if oral route cannot be used. 0001 (Given - Provid er: Aundrea Beltre RN)0554 (Given - Provider: Aundrea Beltre RN)0928 ([facility] Hold - Provider: [facility] [employer] - Reason: Unreviewed Transfer Orders)1027 ([facility] Unhold - Provider: Anastasiya Coates, RN) ondansetron (ZOFRAN-ODT) disintegrating tablet 4 mg(Linked Group 3) 4 mg, Oral, EVERY 8 HOURS PRN, Starting on 4/5/25 at 2346, Until Discontinued, Nausea, Vomiting 0001 (See Alternativ e - Provider: Aundrea Beltre RN)0554 (See Alternative - Provider: Aundrea Beltre RN)0928 ([facility] Hold - Provider: [facility] [employer] - Reason: Unreviewed Transfer Orders)1027 ([facility] Unhold - Provider: Anastasiya Coates, FELA) oxyCODONE (ROXICODONE) immediate release tablet 2.5 mg(Linked Group 4) 2.5 mg, Oral, EVERY 4 HOURS PRN, Starting on 4/5/25 at 2346, Until Discontinued, Pain Moderate (4-6), allowed for higher pain score per patient request 0000 (See Alternativ e - Provider: Aundrea Beltre RN)0928 ([facility] Hold - Provider: [facility] [employer] - Reason: Unreviewed Transfer Orders)1027 ([facility] Unhold - Provider: Anastasiya Coates, RN)1053 (See Alternative - Provider: Anastasiya Coates RN) oxyCODONE (ROXICODONE) immediate release tablet 5 mg(Linked Group 4) 5 mg, Oral, EVERY 4 HOURS PRN, Starting on 4/5/25 at 2346, Until Discontinued, Pain Severe (7-10) 0000 (Given - Provid er: Aundrea Beltre RN)0928 ([facility] Hold - Provider: [facility] [employer] - Reason: Unreviewed Transfer Orders)1027 ([facility] Unhold - Provider: Anastasiya Coates RN)1053 (Given - Provider: Anastasiya Coates RN) polyethylene glycol (GLYCOLAX) packet 17 g 17 g, Oral, DAILY PRN, Starting on 01/21/25 at 2346, Until Discontinued, Constipation, First line therapy for constipation 28 ([facility] Hold - Pro vider: [facility] [employer] - Reason: Unreviewed Transfer Orders)1027 ([facility] Unhold - Provider: Anastasiya Coates RN) potassium [...] further dilute if GI adverse effects occur. 927 ([facility] Hold - Pro vider: [facility] [employer] - Reason: Unreviewed Transfer Orders)1027 ([facility] Unhold - Provider: Anastasiya Coates RN) potassium chloride (KLOR-CON M) extended release tablet 40 mEq(Linked Group 5) 40 mEq, Oral, PRN, Starting on Sat 4 at 2346, Until Discontinued, Potassium Replacement, May [...] in half and each half swallowed separately. 0928 ([facility] Hold - Pro vider: [facility] [employer] - Reason: Unreviewed Transfer Orders)1027 ([facility] Unhold - Provider: nAastasiya Coates RN) potassium chloride 10 mEq/100 mL IVPB (Peripheral Line)(Linked Group 5) 10 mEq, IntraVENous, PRN, Starting on Sat 4 at 2346, Until Discontinued, at 100 mL/hr, [...] patients with CrCl less than 30 mL/min. 09 ([facility] Hold - Pro vider: [facility] [employer] - Reason: Unreviewed Transfer Orders)102 ([facility] Unhold - Provider: Anastasiya Coates RN) prochlorperazine [...] (Given - Provid er: Anastasiya Coates RN)927 ([facility] Hold - Provider: Tamy Autohold - Reason: Unreviewed Transfer Orders)102 ([facility] Unhold - Provider: Anastasiya Coates RN) sterile water for irrigation (CANCELED) PRN, Starting on 01/22/25 at 0942, Intra-op 0942 (Given - Provid er: Surendra Salinas MD) Linked Groups Order Group 1: acetaminophen (TYLENOL) tablet 650 mgJump to med 650 mg, Oral, EVERY 6 HOURS PRN, Starting on Sat 4 at 2346, Until Discontinued, Pain Mild (1-3), allowed for higher pain score per patient request, Fever, For temp greater than 100.4 F (38 C), Maximum dose of acetaminophen is 4000 mg from all sources in 24 hours. Or acetaminophen (TYLENOL) suppository 650 mgJump to med 650 mg, Rectal, EVERY 6 HOURS PRN, Starting on Sat 4 at 2346, Until Discontinued, Pain Mild (1-3), [...] IntraVENous, EVERY 6 HOURS PRN, Starting on Sat 4 at 2346, Until Discontinued, Nausea, Vomiting, Administer [...] Provider: Tamy Autohold - Reason: Unreviewed Transfer Orders)174 ([facility] Unhold - Provider: Balwinder Ashton RN)2032 [...] Provider: Tamy Autohold - Reason: Unreviewed Transfer Orders)174 ([facility] Unhold - Provider: Balwinder Ashton RN) 09 (Not Given - Provider: Balwinder Ashton RN - Reason: Patient/family refused) 0817 (Not Given - Provider: Balwinder Ashton RN - Reason: Patient/family refused) sodium chloride flush 0.9 % injection 5-40 mL 5-40 mL, IntraVENous, EVERY 12 HOURS SCHEDULED (2 times per day), First dose on Julia 01/26/25 at 2100, Until Discontinued, For Line Patency: [...] mL/lumen 0904 (Given - Provider: Yamel Leavitt)1440 (MAR Hold - Provider: Tamy Autohold - Reason: Unreviewed Transfer Orders)174 ([facility] Unhold - Provider: Balwinder Ashton RN)2032 (Given - Provider: Gretchen Tony) 0900 (Given - Provider: Balwinder Ashton RN)2200 (Given - Provider: Gretchen Tony) 0817 (Not [...] (DEC Unhold - Provider: Balwinder Ashton RN) 0858 [...] less into rate field of order. 1440 (DEC Hold - Provider: Tamy Autohold - Reason: Unreviewed Transfer Orders)1744 ([facility] Unhold - Provider: Balwinder Ashton RN) acetaminophen (TYLENOL) tablet 650 mg 650 mg, Oral, EVERY 6 HOURS PRN, Starting on Julia 01/26/25 at 2128, Until Discontinued, Pain Mild (1-3), allowed for higher pain score per patient request, Maximum dose of acetaminophen is 4000 mg from all sources in 24 hours. 1440 (DEC Hold - Provider: [facility] [employer] - Reason: Unreviewed Transfer Orders)1744 (DEC Unhold - Provider: Balwinder Ashton RN) diatrizoate meglumine (CYSTOGRAFIN) 30 % solution (CANCELED) PRN, Starting on Thu01/27/25 at 1553, Until Thu01/27/25 at 1601, Intra-op 1553 (Given - Provider: Edwina Espino MD) fentaNYL (SUBLIMAZE) injection 50 mcg (COMPLETED) 50 mcg, IntraVENous, EVERY 5 MIN PRN, 2 doses, Starting on 01/27/25 at 1658, Until Thu01/27/25 at 1707, Pain [...] Provider: Sabra Beard RN)0359 (Given - Provider: Sbara Beard RN)0717 (Given - Provider: Balwinder Ashton RN)1014 (Given - Provider: Balwinder Ashton RN)1329 (Given - Provider: Balwinder Ashton RN)1440 (DEC Hold - Provider: Tamy Autohold - [...] Sabra Beard RN)1440 (DEC Hold - Provider: [facility] [employer] - Reason: Unreviewed Transfer Orders)1744 (DEC Unhold - Provider: Balwinder Ashton RN)2033 (Given - Provider: Gretchen Tony) 0453 (Given - Provider: Gretchen Tony) ketorolac (TORADOL) injection 30 mg 30 mg, IntraVENous, EVERY 6 HOURS PRN, Starting on Julia 01/26/25 at 2128, Until 01/31/25 at 2126, Pain Moderate (4-6), allowed for higher pain score per patient request, Pain Severe (7-10), Do not administer for more than 5 days. 0717 (Given - Provider: Balwinder Ashton RN)1440 (DEC Hold - Provider: [facility] [employer] - Reason: Unreviewed Transfer Orders)1744 (DEC Unhold - Provider: Balwinder Ashton RN)1759 (Given [...] 0806 (Given - Provider: Balwinder Ashton RN)1440 ([facility] Hold - Provider: Tamy Autohold - Reason: Unreviewed Transfer Orders)1744 ([facility] Unhold - Provider: Balwinder Ashton RN) 1203 (Given - Provider: Maryam Avila) ondansetron (ZOFRAN-ODT) disintegrating tablet 4 mg(Linked Group 1) 4 mg, Oral, EVERY 8 HOURS PRN, Starting on Julia 01/26/25 at 1726, Until Discontinued, Nausea, Vomiting 0806 (See Alternative - Provider: Balwinder Ashton RN)1440 ([facility] Hold - Provider: [facility] [employer] - Reason: Unreviewed Transfer Orders)1744 ([facility] Unhold - Provider: Balwinder Ashton RN) 1203 (See Alternative - Provider: Maryam Avila) oxyCODONE-acetaminophen (PERCOCET) 5-325 MG per tablet 2 tablet 2 tablet, Oral, EVERY 4 HOURS PRN, Starting on Julia 01/26/25 at 1736, Until Discontinued, Pain Mild (1-3), allowed for higher pain score per patient request, Pain Moderate (4-6), allowed for higher pain score per patient request, Maximum dose of acetaminophen is 4000 mg from all sources in 24 hours. 0008 (Given - Provider: Sabra Beard RN)1440 ([facility] Hold - Provider: [facility] [employer] - Reason: Unreviewed Transfer Orders)1744 ([facility] Unhold - Provider: Balwinder Ashton RN)2033 (Given - Provider: Gretchen Tony) 0709 (Given - Provider: Gretchen Tony)1106 (Given - Provider: Balwinder Ashton RN)1610 (Given - Provider: Maryam Avila) 0040 (Given - Provider: Gretchen Tony)0711 (Given - Provider: Gretchen Tony) polyethylene glycol (GLYCOLAX) packet 17 g 17 g, Oral, DAILY PRN, Starting on Julia 01/26/25 at 1726, Until Discontinued, Constipation, First line therapy for constipation 1440 ([facility] Hold - Provider: Tamy Autohold - Reason: Unreviewed Transfer Orders)1744 ([facility] Unhold - Provider: Balwinder Ashton RN) prochlorperazine [...] 1330 (Given - Provider: Balwinder Ashton RN)1440 ([facility] Hold - Provider: Tamy Autohold - Reason: Unreviewed Transfer Orders)1744 ([facility] Unhold - Provider: Balwinder Ashton RN) sod [...] or Central Line = 20 mL/lumen 1440 ([facility] Hold - Provider: Tamy Autohold - Reason: Unreviewed Transfer Orders)1744 ([facility] Unhold - Provider: Balwinder Ashton RN) Linked [...] BE BASED ON THE PRIMARY CLINICAL RECORDS. [facility] [employer] [facility]. provides no warranty or guarantee of the accuracy or completeness of information in this document.
[2025-05-05 19:24] LABS: Glucose Urine UA NEGATIVE (NEGATIVE)
[2025-05-05 19:34] LABS: Cast Seen? NONE SEEN #/LPF (NONE SEEN); Crystals Seen? None Seen #/HPF (None Seen); Urine Culture Indicated YES-FRMC
[2025-05-05] MEDS: KETOROLAC TROMETHAMINE 30 MG/ML VIAL IVP (19:34)
[2025-05-05 19:43] LABS: Hematocrit 37.5 % (36.0-48.0); Hemoglobin 12.7 g/dL (12.0-16.0); Immature Granulocytes Abs Auto 0.00 10^3/uL (0.00-0.03); Immature Granulocytes Pct Auto 0.0 % (0.0-0.5); Lymphocytes Absolute Auto 3.3 10^3/uL (1.2-3.8); Mean Corpuscular HGB Conc 33.9 g/dL (29.9-35.2); Mean Corpuscular Hemoglobin 29.3 pg (26.7-34.0); Mean Corpuscular Volume 86.6 fL (81.0-99.0); Platelet Count 299 10^3/uL (150-450); Red Blood Count 4.33 10^6/uL (4.20-5.40); White Blood Count 6.8 10^3/uL (4.0-11.0)
[2025-05-05 19:55] LABS: Anion Gap 13.1; Blood Urea Nitrogen 8.0 mg/dL (7.0-18.0); Calcium 9.5 mg/dL (8.5-10.1); Carbon Dioxide 30.3 mmol/L (21.0-32.0); Chloride 104 mmol/L (98-107); Estimated GFR (African America >60 (>=60 mL/min/1.73m^2); Estimated GFR (Non-African Ame >60 (>=60 mL/min/1.73m^2); Glucose 90 mg/dL (74-106); Potassium 3.4 mmol/L (3.5-5.1); Sodium 144 mmol/L (136-145)
[2025-05-05] MEDS: CIPROFLOXACIN IN 5 % DEXTROSE 400 MG/200 ML PREMIX 200 MG IV (19:55)
--- NOTE | 2025-05-05 20:20 | CT_ITS ---
The [address] [address] Patient Name: CORI BARRIGA MRN: [id number] date: 1990 Sex: F Assigned Patient Location: ER Current Patient Location: ER Accession/Order Number: [id number] Exam Date: 05/05/2025 21:09 Report Date: 05/05/2025 21:15 At the request of: HERMAN HAY Procedure: CT abdomen pelvis wo con CT abdomen pelvis wo con 05/05/2025 8:55 PM SIGNS AND SYMPTOMS: left flank pain, UTI, hx kidney stones TECHNIQUE: Multidetector ct axial images of the abdomen and pelvis were obtained without IV contrast. Multiplanar reformats were performed and reviewed to further define anatomy and possible pathology. CT was performed with one or more of the following dose reduction techniques: Automated exposure control, adjustment of the mA and/or kV according to patient size, or use of iterative reconstruction technique. COMPARISON: 01/21/2025 FINDINGS: Lower Chest: There is dependent atelectasis. ABDOMEN: Liver: Within normal limits. Bile Ducts: Normal caliber. Gallbladder: Previously removed Pancreas: Within normal limits. Spleen: Within normal limits. Adrenals: Within normal limits. Kidneys: Multiple nonobstructing renal stones are noted on the left measuring up to 5 mm in greatest dimension. There is a 9 mm stone at the inferior pole of the right renal collecting system. Pelvis: Reproductive Organs: No pelvic masses. Ureters: Within normal limits. Bladder: Within normal limits. Bowel: Normal caliber. There is a normal appendix in the right lower quadrant. Mesenteric Lymph Nodes: No enlarged mesenteric lymph nodes. Peritoneum: No ascites or free air, no fluid collection. Vessels: within normal limits Retroperitoneum: Within normal limits. Abdominal Wall: There is a fat-containing periumbilical hernia. Bones: Within normal limits. CT/CT abdomen pelvis wo con IMPRESSION: No bowel obstruction or obstructive uropathy. Nonobstructing renal stones are present bilaterally. Additional chronic appearing findings are noted as above. Impression dictated by: Enrique Conley M.D. 05/05/2025 9:15 PM Dictation Location: [place] [address] Electronically authenticated by: [id number] Y Date: 05/05/2025 21:15
[2025-05-05] MEDS: PROMETHAZINE HCL 12.5 MG in 0.9 % SODIUM CHLORIDE 50 ML 202 MG IV (20:31)
[2025-05-05] MEDS: HYDROMORPHONE HCL 1 MG/ML CARTRIDGE IVP (20:32)
== END 2025-05-05 22:12 | disposition home or self-care (01) ==
PROVIDERS: Emergency Provider Emergency Medicine; PCP Family Medicine
DX: N39.0 Urinary tract infection, site not specified (principal); R10.9 Unspecified abdominal pain; R11.2 Nausea with vomiting, unspecified; Z87.440 Personal history of urinary (tract) infections; Z87.442 Personal history of urinary calculi; Z90.710 Acquired absence of both cervix and uterus; Z90.49 Acquired absence of other specified parts of digestive tract
CPT/HCPCS: 36415; 74176; 80048; 81001; 85025; 87086; 87088; 87186; 96365; 96366; 96368; 96375; 99285; J0744; J1171; J1885; J2405; J2550

== ENCOUNTER 2025-05-24 12:12 | Outpatient (OUT) | payer OTHER, SELFPAY ==
--- OUTSIDE RECORDS SUMMARY | 2024-05-09 04:30 | XMS_ITS ---
Author Organization [facility] Serv es Address [address] [place] [address] Care Team Providers Care [place] Marshal Name Role Phone Iván Puckett Primary Care Provider [phone] Dulce Maria Grey Unavailable [phone] REASON FOR VISIT PROPHY Encounters Encounter Location Date Provider Diagnosis [address] [place] [address] 05/09/2024 Dulce Maria Matthews Plan Of Treatment No Information Progress Notes * CORI BARRIGA LDOB: [birth year] (34 yo F)Acc No.[id number]:05/09/2024 Patient: Connor QUIROZ CORI Hyman Provider: Ladonna Baugh :1990 A ge:33 Y S ex:Female Date:05/09/2024 [facility] [id number] Pcp:Iván Puckett Subjective: * Chief Complaints: * 1 . PROPHY. * Medical History: Objective: * Vitals: Assessment: Plan: * Treatment: * Images: * Electronic signature of Karissa Matthews on 05/24/2025 at 12:16 PM EDT Sign off status: Pending * Provider: Ladonna Baugh Date: 05/09/2024 Generated for Parthi ng/Faxing/eTransmitting on: 0 05/24/2025 12:16 PM EDT
--- OUTSIDE RECORDS SUMMARY | 2025-05-06 11:20 | XMS_ITS ---
Author Organization The [facility] in [place] Address [address] [place] [address] Care Team Providers Care Car Examiner Name Role Phone Kendrick Das Primary Care Provider REASON FOR VISIT urine cx- Encounters Encounter Location Date Provider Diagnosis [facility] [address] [place] [id number] 05/06/2025 Kendrick Das Plan Of Treatment Next Appt Details Provider Name:Kendrick Das, 10:00:00 AM, [address] [place], [address], Progress Notes * Diana BEAVER LDOB: 1 (34 yo F)Acc No.[id number]:05/06/2025 Patient: Diana RATLIFF :1990 A ge:34 Y S ex:Female Address:[address] [place] [address], [phone] * true * Date: Generated for Meenakshi krishnan/Neisha/eTransmitting on: 0 05/24/2025 12:16 PM EDT
--- OUTSIDE RECORDS SUMMARY | 2025-05-08 16:46 | XMS_ITS ---
Author Organization The [facility] in [place] Address [address] [place] [address] Care Team Providers Care Dewatering Filtering Supervisor Name Role Phone Kendrick Das Primary Care Provider REASON FOR VISIT Urine Encounters Encounter Location Date Provider Diagnosis [address] [phone] 05/08/2025 Kendrick Thiago Plan Of Treatment Next Appt Details Provider Name:Kendrick Das, 10:00:00 AM, [address] [place], [address], Progress Notes * Diana BEAVER LDOB: 1 (34 yo F)Acc No.[id number]:05/08/2025 Patient: Diana RATLIFF :1990 A ge:34 Y S ex:Female Address:[address] [place] [address], [id number] * true * Date: Generated for Meenakshi krishnan/Neisha/eTransmitting on: 0 05/24/2025 12:14 PM EDT
--- OUTSIDE RECORDS SUMMARY | 2025-05-15 15:30 | XMS_ITS | Encounter Summary ---
Author Organization [facility] Address [address] [place] [address] Care Team Providers Care Solar System Designer Name Role Phone Ignacio Das MD Primary Care Provider [phone] Encounter Details Date Type Department Care Team (Late st Contact Info) Description 05/15/2025 3:30 PM EDT Office [facility] [address] [facility] [address] [place] [phone] Alejandra Leiva MD [address] [facility] [address] [place] [address] Neoplasm of unspecified behavior of bone, soft tissue, and skin (Primary Dx) Social History Tobacco Use Types Packs/Day Years [...] on file documented as of this encounter Progress Notes * Alejandra Leiva MD - 05/15/2025 3:30 PM EDT Images from the original note were not included. Subjective Diana Beaver is a 34 y.o. female who presents for the following: Excision Location: Right shoulder, posterior Date of biopsy: 04/10/2025 Diagnosis: Severely atypical nevus Pre-Op Checklist: History of pacemaker/defibrillator: No History of joint replacement in the past 2 years: No History of HIV/Hepatitis B/Hepatitis C: No Latex allergy: No Is the patient currently on a blood thinner? No All pertinent medical history, medications, and allergies were reviewed. Surgical assistants: Ceci Crowder CMA and Ceci Morris LPN Objective Well appearing patient in no apparent distress; mood and affect are within normal limits. Skin Exam 1. NEOPLASM OF UNSPECIFIED BEHAVIOR OF BONE, SOFT TISSUE, AND SKIN Right Shoulder - Posterior Erythematous macule at biopsy site Skin excision Lesion length (cm): 0.7 Lesion width (cm): 0.7 Margin per side (cm): 0.4 Total excision diameter (cm): 1.5 Informed consent: discussed and consent obtained Informed consent comment: Risks and possible complications were discussed as noted on the consent form. The consent form was signed prior to the procedure. Timeout: patient name, date of , surgical site, and procedure verified Timeout comment: Patient and provider identified site. Site was marked and excision was drawn out. Photo was taken and shown to patient, patient verified this is the correct site. Procedure prep: Patient was prepped and draped in usual sterile fashion (The planned incision lineswere drawn along relaxed skin tension lines, if possible, to minimize scarring and deformity of surrounding structures.) Prep type: Chlorhexidine Anesthesia: the lesion was anesthetized in a standard fashion Anesthesia comment: The local anesthetic was injected to create a field block at the site of the procedure. Anesthetic: 1% lidocaine w/ epinephrine 1-100,000 buffered w/ 8.4% NaHCO3 Instrument used: #15 blade Instrument used comment: Incisions were made as drawn, and the surrounding tissue was undermined until the skin edges could be approximated without undue tension. Any tissue redundancies were removed. Hemostasis achieved with: electrodesiccation Additional details: Amount of lidocaine used: 6.0 ml Estimated blood loss: 1.0 ml Skin repair Complexity: Intermediate Final length (cm): 4.2 Reason for type of repair: allow closure of the large defect Undermining: edges undermined Undermining comment: The surrounding tissue was undermined until the skin edges could be approximated without undue tension. Any tissue redundancies were removed. Subcutaneous layers (deep stitches): Suture size: 3-0 Suture type comment: Biosyn Stitches: Buried horizontal mattress (Closure was performed in a layered fashion with subcutaneous tissue closed first using tension-bearing absorbable sutures to the level of the superficial fascia.) Fine/surface layer approximation (top stitches): Suture size: 4-0 Suture type: Prolene (polypropylene) Stitches: simple running Stitches comment: Epicuticular skin sutures were then placed with minimal tension. Suture removal (days): 14 Outcome: patient tolerated procedure well with no complications Post-procedure details: sterile dressing applied and wound care instructions given Post-procedure details comment: It was emphasized to the patient to contact the office for any signs of infection, uncontrollable bleeding, or complications. Dressing type: pressure dressing Specimen A - Dermatopathology exam Differential Diagnosis: Severely atypical nevus Check Margins: Yes Previous accession number: [id number] 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, soft tissue, and skin Plan: Skin excision, Skin repair Follow up: 14 days for s/r documented in this encounter Plan of Treatment Upcoming Encounters Date Type Department Care Team (Late st Contact Info) Description 05/29/2025 2:45 PM EDT Office Visit [facility] [address] [place] [phone] Alejandra Leiva MD [address] [place] [address] 04/09/2026 9:00 AM EDT Office Visit [facility] [address] [facility] [facility] [place] [phone] Jefferson Gibbs DO [address] [facility] [address] [place], [place] [id number] documented as of this encounter Procedures Procedure Name Priority Date/Time Associated Diagnosis Comments SKIN REPAIR Routine 05/15/2025 3:41 PM EDT Neoplasm of unspecified behavior of bone, soft tissue, and skin SKIN EXCISION Routine 05/15/2025 3:41 PM EDT Neoplasm of unspecified behavior of bone, soft tissue, and skin DERMATOPATHOLOGY EXAM Routine 05/15/2025 12:00 AM EDT Neoplasm of unspecified behavior of bone, soft tissue, and skin documented in this encounter Results * Skin repair (05/15/2025 3:41 PM EDT) Narrative Falguni Hui LPN - 05/15/2025 3:41 PM EDT Complexity: Intermediate Final length (cm): 4.2 Reason for type of repair: allow closure of the large defect Undermining: edges undermined Undermining comment: The surrounding tissue was undermined until the skin edges could be approximated without undue tension. Any tissue redundancies were removed. Subcutaneous layers (deep stitches): Suture size: 3-0 Suture type comment: Biosyn Stitches: Buried horizontal mattress (Closure was performed in a layered fashion with subcutaneous tissue closed first using tension-bearing absorbable sutures to the level of the superficial fascia.) Fine/surface layer approximation (top stitches): Suture size: 4-0 Suture type: Prolene (polypropylene) Stitches: simple running Stitches comment: Epicuticular skin sutures were then placed with minimal tension. Suture removal (days): 14 Outcome: patient tolerated procedure well with no complications Post-procedure details: sterile dressing applied and wound care instructions given Post-procedure details comment: It was emphasized to the patient to contact the office for any signs of infection, uncontrollable bleeding, or complications. Dressing type: pressure dressing Alejandra Leiva MD DERM PROCEDURE ORDERABLES Fin al Result * Skin excision (05/15/2025 3:41 PM EDT) Narrative CecilioFalguni Crow LPN - 05/15/2025 3:41 PM EDT Lesion length (cm): 0.7 Lesion width (cm): 0.7 Margin per side (cm): 0.4 Total excision diameter (cm): 1.5 Informed consent: discussed and consent obtained Informed consent comment: Risks and possible complications were discussed as noted on the consent form. The consent form was signed prior to the procedure. Timeout: patient name, date of , surgical site, and procedure verified Timeout comment: Patient and provider identified site. Site was marked and excision was drawn out. Photo was taken and shown to patient, patient verified this is the correct site. Procedure prep: Patient was prepped and draped in usual sterile fashion (The planned incision lines were drawn along relaxed skin tension lines, if possible, to minimize scarring and deformity of surrounding structures.) Prep type: Chlorhexidine Anesthesia: the lesion was anesthetized in a standard fashion Anesthesia comment: The local anesthetic was injected to create a field block at the site of the procedure. Anesthetic: 1% lidocaine w/ epinephrine 1-100,000 buffered w/ 8.4% NaHCO3 Instrument used: #15 blade Instrument used comment: Incisions were made as drawn, and the surrounding tissue was undermined until the skin edges could be approximated without undue tension. Any tissue redundancies were removed. Hemostasis achieved with: electrodesiccation Additional details: Amount of lidocaine used: 6.0 ml Estimated blood loss: 1.0 ml Alejandra Leiva MD DERM PROCEDURE ORDERABLES Fin al Result * Dermatopathology exam (05/15/2025 12:00 AM EDT) SPECIMEN TYPE ------ SPECIMEN: RIGHT SHOULDER- POSTERIOR ------ [facility] ICD10 Code D23.60 [facility] PROTOCOL EXC - EXCISION EZIO HAN Final Diagnosis SCAR AND WOUND REPAIR REACTION, EXCISED (SEE COMMENT). COMMENT: A residual or recurrent melanocytic lesion is not seen. This case is reviewed in conjunction with the previous biopsy as listed in the case history summary. [facility] Gross Text 3 blocks, (tips in 1) (3 in 2, 3) (jg/kb) (05/17/25) [facility] Microscopic Description Microscopic examination performed. [facility] CPT 03415*1 [facility] Skin Topography unknown / Unknown 05/15/2025 3:41 PM EDT Comment:Differential Diagnos is: Severely atypical nevus Check Margins: Yes Previous accession number: [id number] 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, soft tissue, and skin Plan: Skin excision, Skin repair us Alejandra A Petitti MD LAB PATHOLOGY ORDERABLES Jessica caruso Result [facility] documented in this encounter Visit Diagnoses Diagnosis Neoplasm of unspecified behavior of bone, soft tissue, and skin- Primary documented in this encounter Care Teams Solar System Designer Relationship Specialty Start Date End Date Ignacio Das MD [address] [place] [phone] PCP - General Family Medicine 04/13/23 documented as of this encounter
--- OUTSIDE RECORDS SUMMARY | 2025-05-23 05:15 | XMS_ITS ---
Author Organization The [facility] in [place] Address [address] [place] [address] Care Team Providers Care Enrollment Specialist Name Role Phone Thiago Kendrick Primary Care Provider Allergies No Known Allergies Reason For Referral Diagnosis 1 Arthralgia (M25.50) Referral Organization [facility] Referring Provider First Name Kendrick Referring Provider Last Name Thiago Referring Provider Speciality Family Med andrew Referred Provider Keith Craig Referred Provider [...] Status W/U Status Risk Notes Problem Arthralgia (06897620) Arthralgia (M25.50) Active confirmed Vital Signs Blood pressure systolic 140 mm Hg 05/23/20 25 Blood pressure diastolic 88 mm Hg 025 Height 66 in 05/23/2025 Weight 187.4 lbs 05/23/2025 BMI 30.24 kg/m2 05/23/2025 Encounters Encounter Location Date Provider Diagnosis [facility] [address] [place] [address] 05/23/2025 Kendrick Das Arthralgia M25.5 0 Assessments Encounter Date Diagnosis (ICD Code) Assessment Notes Treatment Notes Treatment Clinical Notes Section Notes 05/23/2025 Arthralgia (ICD-10 - M25.50) Plan Of Treatment Pending Test Test Name Order Date RHEUMATOID PANEL 05/23/2025 CBC AUTO DIFF 05/23/2025 PROF 14(COMP METB) 05/23/2025 SED RATE WESTERGREN 05/23/2025 Referrals Referral Date Details 05/23/2025 05/23/2025, Keith Craig Next Appt Details Provider Name:Kendrick Das, 10:00:00 AM, [address] [place], [address], Progress Notes * NITHYA, Diana LDOB: 1 (34 yo F)Acc No.[id number]:05/23/2025 UNLOCKED PROGRESS NOTE Progress Note Patient: Diana RATLIFF Provider: Walter Das ([facility])MD :1990 A ge:34 Y S ex:Female Date:05/23/2025 Address:[address] [place], [place] [id number] Check In:08:59 AM ESTCheck O ut:09:35 AM EST Subjective: * Chief Complaints: * 1 . Pain everywhere, shooting pains down legs and arms- numbness- felt sick for the last week- headaches, nausea. 2. just completed Cipro for UTI. * HPI: G eneral: gett some finger [...] enies. S wollen joints d enies. * Medical History: K idney Stone, Right, [...] Cystoscopy, Left retrograde pyelogram, ureteral stent- Dr. Casillas , Hysterectomy, Bilat Salpingectomy- Bernie 05/06/23, urethral dilation , Right laser lithotripsy - Dr Villa 11/2021, ureteral stent placement on Left side 01/22/25, Cystoscopy, Holmium Laser Lithotripsy, Lt stent replacement, Rt stent placement- Dr Desai 01/27/25. * Hospitalization/Major Diagno stic Procedure: M ultiple for kidney stones and stents . * [...] tablet Orally Twice a day , Taking Promethazine HCl 25 MG Tablet 1 tablet as needed Orally q6h , Notes to Pharmacist: PRN, Taking tiZANidine HCl 4 MG Tablet 2 tabs Orally qhs , Discontinued Nitrofurantoin Monohyd Macro 100 MG Capsule 1 capsule with food Orally every 12 hrs , Discontinued Ondansetron 4 MG Tablet Disintegrating 1 tablet on the tongue and allow to dissolve Orally qid , Notes to Pharmacist: PRN, Medication List reviewed and reconciled with the patient * Allergies: N .K.D.A. Objective: * Vitals: W t:187.4lbs, Ht: 66 [...] - M25.50 (Primary) Plan: * Treatment: * Preventive Medicine: Screenings/Counseling: B [place] ACTION PLAN Above Normal BMI Follow-up D ietary management education, guidance, and counseling * * Electronic signature of Kendrick Das MD, [id number] on 05/24/2025 at 12:15 PM EDT Sign off status: Pending Visit Status: C (Check Out) * Provider: Walter Das (TTC)MD Date: 0 05/23/2025 Generated for Printi ng/Faxing/eTransmitting on: 0 05/24/2025 12:15 PM EDT History and Physical Notes * [...]
--- OUTSIDE RECORDS SUMMARY | 2025-05-24 12:14 | XMS_ITS | Encounter Summary ---
Author Organization [facility] Address [address] [place] [address] Care Team Providers Care Stratigrapher Name Role Phone Ignacio Das MD Primary Care Provider [phone] Encounter Details Date Type Department Care Team (Late Contact Info) Description 12/23/2023 Clinisync Result Encounter [facility] External Department Unsolicited Tamiko Chacon PA [address] [facility] [address] [place], [id number] Social History Tobacco Use Types Packs/Day Years [...] Department Care Team (Late Contact Info) Description 05/29/2025 2:45 PM EDT Office [facility] [address] [place] [phone] Alejandra Leiva MD [address] [place] [address] 04/09/2026 9:00 AM EDT Office Visit [facility] [address] [place] [phone] Jefferson Gibbs DO [address] [place], [place] [phone] documented as of this encounter Procedures Procedure Name Priority Date/Time Associated Diagnosis Comments MM TOMOSYNTHESIS DIAGNOSTIC BI 12/23/2023 1:47 PM EST documented in this encounter Results * MM TOMOSYNTHESIS DIAGNOSTIC BI (12/23/2023 1:47 PM EST) Anatomical Region Laterality Modality Other 12/23/2023 1:47 PM EST Narrative 12/23/2023 1:48 [place] [address] Mammography Report Signed Patient: DIANA BEAVER MR#: [id number] : 1990 Acct:[id number] Age/Sex: 33 / F ADM Date: 12/23/23 Loc: MAMMO Attending Dr: Jefferson Gibbs D.O. Ordering Physician: Tamiko Chacon Results: Date of Service: 12/23/23 Follow Up: Procedure(s): MM tomosynthesis diagnostic BI Accession Number(s): [id number] cc: Tamiko Chacon; Ignacio Das M.D. Patient Name: DIANA BEAVER MR#: [id number] : 1990 Exam Date: 12/23/2023 Ordering Doctor: [...] Treatments None Family Cancers None LOCATION: The [facility] BREAST COMPOSITION: Extremely dense, which lowers the [...] Signed By: 12/23/23 1348 DD/ 1347 TD/TT: Director Of Accreditation: Procedure Note Radiology, Radiologist, MD - 12/23/2023 [place] [address] Mammography Report Signed Patient: DIANA BEAVER LMR#: [id number] : 1990Acct:[id number] Age/Sex: 33 / FADM Date: 12/23/23 Loc: MAMMO Attending Dr: Jefferson Gibbs D.O. Ordering Physician: Tamiko Najeraults: Date of Service: 12/23/23Follow Up: Procedure(s): MM tomosynthesis diagnostic BI Accession Number(s): [id number] cc: Tamiko Chacon; Ignacio Das M.D. Patient Name: DIANA BEAVER MR#: [id number] : 1990 Exam Date: 12/23/2023 Ordering Doctor: [...] Treatments None Family Cancers None LOCATION: The [facility] BREAST COMPOSITION: Extremely dense, which lowers [...] M.D. Signed By:12/23/23 1348 DD/ 1347 TD/TT: Director Of Accreditation: Tamiko MADDOX [facility] Final Result documented in this encounter Visit Diagnoses Not on filedocumented in this encounter Care Teams Stratigrapher Relationship Specialty Start Date End Date Ignacio Das MD [address] [place] [address] PCP - General Family Medicine 04/13/23 documented as of this encounter
--- OUTSIDE RECORDS SUMMARY | 2025-05-24 12:14 | XMS_ITS | Encounter Summary ---
Author Organization [facility] Address [address] [place] [address] Care Team Providers Care Revenue Field Auditor Name Role Phone Ignacio Das MD Primary Care Provider [phone] Encounter Details Date Type Department Care Team (Late Contact Info) Description 12/29/2023 Clinisync Result Encounter [facility] External Department Unsolicited Jefferson Gibbs, DO [address] [place] [address] Social History Tobacco Use Types Packs/Day Years [...] [address] [place] [phone] Alejandra Leiva MD [address] [place] [address] 04/09/2026 9:00 AM EDT Office Visit [facility] [place] [facility] [address] [facility] [place] [address] Jefferson Gibbs DO [address] [place] [address] documented as of this encounter Procedures Procedure Name Priority Date/Time Associated Diagnosis Comments MM POST BIOPSY LT 12/29/2023 8:5 7 AM EDT documented in this encounter Results * MM POST BIOPSY LT (12/29/2023 8:57 AM EDT) Anatomical Region Laterality Modality Other 12/29/2023 8:57 AM EDT Narrative 12/29/2023 8:57 AM EDT The [place] [id number] Mammography Report Signed Patient: DIANA BEAVER MR#: [id number] : 1990 Acct:[id number] Age/Sex: 33 / F ADM Date: 12/29/23 Loc: US Attending Dr: Jefferson Gibbs D.O. Ordering Physician: Jefferson Gibbs D.O. Results: Date of Service: 12/29/23 Follow Up: Procedure(s): MM post biopsy LT Accession Number(s): [id number] cc: Jefferson Gibbs D.O.; Ignacio Das M.D. Patient Name: DIAAN BEAVER MR#: [id number] : 1990 Exam Date: 12/29/2023 Ordering Doctor: [...] Signed By: 12/29/23 0857 DD/ 0857 TD/TT: Axle Turner: Procedure Note Radiology, Radiologist, - 12/29/[address] [address] Mammography Report Signed Patient: DIANA BEAVER LMR#: [id number] : 1990Acct:[id number] Age/Sex: 33 / FADM Date: 12/29/23 Loc: US Attending Dr: Jefferson Gibbs D.O. Ordering Physician: Jefferson Gibbs D.O.Results: Date of Service: 12/29/23Follow Up: Procedure(s): MM post biopsy LT Accession Number(s): [id number] cc: Jefferson Gibbs D.O.; Ignacio Das M.D. Patient Name: DIANA BEAVER MR#: [id number] : 1990 Exam Date: 12/29/2023 Ordering Doctor: [...] M.D. Signed By:12/29/23 0857 DD/ 0857 TD/TT: Axle Turner: Jefferson Gibbs DO [facility] Final Result documented in this encounter Visit Diagnoses Not on filedocumented in this encounter Care Teams Revenue Field Auditor Relationship Specialty Start Date End Date Ignacio Das MD [facility] [place] [address] PCP - General Family Medicine 04/13/23 documented as of this encounter
--- OUTSIDE RECORDS SUMMARY | 2025-05-24 12:14 | XMS_ITS | Encounter Summary ---
Author Organization [facility] Address [address] [place] [address] Care Team Providers Care Strip Machine Tender Name Role Phone Ignacio Das MD Primary Care Provider [phone] Encounter Details Date Type Department Care Team (Late Contact Info) Description 12/29/2023 Clinisync Result Encounter [facility] External Department Unsolicited Jefferson Gibbs, DO [address] [place] [address] Social History Tobacco Use Types Packs/Day Years [...] [address] [place] [phone] Alejandra Leiva MD [address] [place] [address] 04/09/2026 9:00 AM EDT Office [facility] [place] [facility] [address] [facility] [place] [phone] Jefferson Gibbs DO [address] [place] [address] documented as of this encounter Procedures Procedure Name Priority Date/Time Associated Diagnosis Comments US GUIDED BREAST BIOPSY LT 12/29/2023 8:24 AM EDT documented in this encounter Results * US GUIDED BREAST BIOPSY LT (12/29/2023 8:24 AM EDT) Anatomical Region Laterality Modality Radiographic Megan ging 12/29/2023 8:24 AM EDT Narrative 12/29/2023 8:27 [place] [address] Ultrasound Report Signed Patient: DIANA BEAVER MR#: [id number] : 1990 Acct:[id number] Age/Sex: 33 / F ADM Date: 12/29/23 Loc: US Attending Dr: Jefferson Gibbs D.O. Ordering Physician: Jefferson Gibbs D.O. Date of Service: 12/29/23 Procedure(s): US breast vac bx w/ clip LT Accession Number(s): [id number] cc: Jefferson Gibbs D.O.; Ignacio Das M.D. [address] [address] Patient Name: DIANA BEAVER MRN: [id number] date: 1990 Sex: F Assigned Patient Location: Current Patient Location: US Accession/Order Number: [id number] Exam Date: 12/29/2023 07:20 Report Date: 12/29/2023 [...] M.D. Signed By: 12/29/23826 DD/ 3 TD/TT: Armor Reconnaissance Vehicle Driver: Procedure Note Radiology, Radiologist, MD - 12/29/2023 [place] [address] Ultrasound Report Signed Patient: DIANA BEAVER LMR#: [id number] : 1990Acct:[id number] Age/Sex: 33 / FADM Date: 12/29/23 Loc: US Attending Dr: Jefferson Gibbs D.O. Ordering Physician: Jefferson Gibbs D.O. Date of Service: 12/29/23 Procedure(s): US breast vac bx w/ clip LT Accession Number(s): [id number] cc: Jefferson Gibbs D.O.; Ignacio Das M.D. The [address] [id number] Patient Name: DIANA BEAVER MRN: [id number] date: 1990 Sex: F Assigned Patient Location: US Current Patient Location: US Accession/Order Number: [id number] Exam Date: 12/29/2023 07:20 Report Date: 12/29/2023 [...] Graff M.D. Signed By:12/29/23826 DD/ 3 TD/TT: Armor Reconnaissance Vehicle Driver: us Jefferson Bernie DO IMG XR PROCEDURES Final Result documented in this encounter Visit Diagnoses Not on filedocumented in this encounter Care Teams Strip Machine Tender Relationship Specialty Start Date End Date Ignacio Das MD [address] [place] [address] PCP - General Family Medicine 04/13/23 documented as of this encounter
--- OUTSIDE RECORDS SUMMARY | 2025-05-24 12:14 | XMS_ITS | Encounter Summary ---
Author Organization [facility] Address [address] [place] [address] Care Team Providers Care Billet Worker Name Role Phone Ignacio aDs MD Primary Care Provider [phone] Encounter Details Date Type Department Care Team (Late Contact Info) Description 12/23/2023 Clinisync Result Encounter [facility] External Department Unsolicited Jefferson Gibbs, DO [address] [place] [address] Social History Tobacco Use Types Packs/Day Years [...] [address] [place] [phone] Alejandra Leiva MD [address] [place] [address] 04/09/2026 9:00 AM EDT Office Visit [facility] [place] [facility] [address] [facility] [place] [phone] Jefferson Gibbs DO [address] [place] [address] documented as of this encounter Procedures Procedure Name Priority Date/Time Associated Diagnosis Comments US BREAST LT LIMITED 12/23/2023 1:47 PM EST documented in this encounter Results * US BREAST LT LIMITED (12/23/2023 1:47 PM EST) Anatomical Region Laterality Modality Other 12/23/2023 1:47 PM EST Narrative 12/23/2023 1:48 [place] [address] Ultrasound Report Signed Patient: DIANA BEAVER MR#: [id number] : 1990 Acct:[id number] Age/Sex: 33 / F ADM Date: 12/23/23 Loc: MAMMO Attending Dr: Jefferson Gibbs D.O. Ordering Physician: Jefferson Gibbs D.O. Date of Service: 12/23/23 Procedure(s): US breast LT limited Accession Number(s): [id number] cc: Jefferson Gibbs D.O.; Ignacio Das M.D. Patient Name: DIANA BEAVER MR#: [id number] : 1990 Exam Date: 12/23/2023 Ordering Doctor: [...] Treatments None Family Cancers None LOCATION: The [facility] BREAST COMPOSITION: Extremely dense, which lowers [...] Signed By: 12/23/23 1348 DD/ 1347 TD/TT: Sustainable Systems Analyst: Procedure Note Radiology, Radiologist, - 12/23/2023 [place] [address] Ultrasound Report Signed Patient: DIANA BEAVER LMR#: [id number] : 1990Acct:[id number] Age/Sex: 33 / FADM Date: 12/23/23 Loc: MAMMO Attending Dr: Jefferson Gibbs D.O. Ordering Physician: Jefferson Gibbs D.O. Date of Service: 12/23/23 Procedure(s): US breast LT limited Accession Number(s): [id number] cc: Jefferson Gibbs D.O.; Igncaio Das M.D. Patient Name: DIANA BEAVER MR#: [id number] : 1990 Exam Date: 12/23/2023 Ordering Doctor: [...] Treatments None Family Cancers None LOCATION: The [facility] BREAST COMPOSITION: Extremely dense, which lowers [...] M.D. Signed By:12/23/23 1348 DD/ 1347 TD/TT: Sustainable Systems Analyst: [facility] DO [facility] Final Result documented in this encounter Visit Diagnoses Not on filedocumented in this encounter Care Teams Billet Worker Relationship Specialty Start Date End Date Ignacio Das MD [address] [place] [address] PCP - General Family Medicine 04/13/23 documented as of this encounter
--- OUTSIDE RECORDS SUMMARY | 2025-05-24 12:15 | XMS_ITS | Encounter Summary ---
Author Organization [facility] Address [address] [place] [address] Care Team Providers Care Senior Counsel Name Role Phone Ignacio Das MD Primary Care Provider [phone] Encounter Details Date Type Department Care Team (Late Contact Info) Description 05/15/2025 Telephone [facility] [address] [place] [address] Jefferson Gibbs DO [address] [place], [place] [address] Social History Tobacco Use Types Packs/Day Years [...] on file documented as of this encounter Miscellaneous Notes * Telephone Encounter - Tana Shell LPN - 05/15/2025 10:43 AM EDT I was calling because I was recently put on an antibiotic by another drTereza, and I am now experiencingsome symptoms of a yeast infection, so I was wondering if Dr. Gibbs could prescribe me the medication for that? Patient was called and detailed message was left for the patient advising that script would be sentin for her. documented in this encounter Plan of Treatment Upcoming Encounters Date Type Department Care Team (Late Contact Info) Description 05/29/2025 2:45 PM EDT Office Visit [facility] [place] [facility] [address] [place] [address] Alejandra Leiva MD [address] [place] [address] 04/09/2026 9:00 AM EDT Office [facility] [place] [facility] [address] [facility] [place] [address] Jefferson Gibbs DO [address] [facility] [place] [address] documented as of this encounter Visit Diagnoses Diagnosis Yeast infection documented in this encounter Care Teams Senior Counsel Relationship Specialty Start Date End Date Ignacio Das MD [address] [facility] [place] [address] PCP - General Family Medicine 04/13/23 documented as of this encounter
--- OUTSIDE RECORDS SUMMARY | 2025-05-24 12:15 | XMS_ITS | Encounter Summary ---
Author Organization [facility] Address [address] [place] [address] Care Team Providers Care Plate Painter Name Role Phone Ignacio Das MD Primary Care Provider [phone] Encounter Details Date Type Department Care Team (Late Contact Info) Description 05/19/2025 Results Follow-Up [facility] [address] [facility] [address] [place] [address] Alejandra Leiva MD [address] [facility] [address] [place] [address] Social History Tobacco Use Types Packs/Day Years [...] Office Visit [facility] [address] [facility] [address] [place] [address] Alejandra Leiva MD [address] [facility] [address] [place] [address] 04/09/2026 9:00 AM EDT Office Visit [place] [address] [facility] [place] [address] Jefferson Gibbs DO [address] [place] [address] documented as of this encounter Visit Diagnoses Not on filedocumented in this encounter Care Teams Plate Painter Relationship Specialty Start Date End Date Ignacio Das MD [address] [facility] [address] PCP - General Family Medicine 04/13/23 documented as of this encounter
--- OUTSIDE RECORDS SUMMARY | 2025-05-24 12:15 | XMS_ITS | Encounter Summary ---
Author Organization [facility] Address [address] [place] [address] Care Team Providers Care Property Management Bookkeeper Name Role Phone Ignacio Das MD Primary Care Provider [phone] Encounter Details Date Type Department Care Team (Late Contact Info) Description 04/18/2025 Results Follow-Up [facility] [address] [facility] [address] [place] [address] Alejandra Leiva MD [address] [facility] [address] [place] [address] Social History Tobacco Use Types [...] Office Visit [facility] [address] [facility] [address] [place] [address] Alejandra Leiva MD [address] [facility] [address] [place] [address] 04/09/2026 9:00 AM EDT Office Visit [facility] [address] [facility] [place] [address] Jefferson Gibbs DO [address] [place] [address] documented as of this encounter Visit Diagnoses Not on filedocumented in this encounter Care Teams Property Management Bookkeeper Relationship Specialty Start Date End Date Ignacio Das MD [address] [facility] [place] [address] PCP - General Family Medicine 04/13/23 documented as of this encounter
--- OUTSIDE RECORDS SUMMARY | 2025-05-24 12:15 | XMS_ITS | Encounter Summary ---
Author Organization [facility] Address [address] [place] [address] Care Team Providers Care Crane Crew Supervisor Name Role Phone Ignacio Das MD Primary Care Provider [phone] Encounter Details Date Type Department Care Team (Late Contact Info) Description 04/18/2025 Results Follow-Up [place] [facility] [address] [place] [address] Tana Shell LPN [address] [facility] [address] [facility]11 Social History Tobacco Use Types Packs/Day Years [...] [address] [place] [id number] Alejandra Leiva MD [address] [place], [place] [id number] 04/09/2026 9:00 AM EDT Office Visit [place] [facility] [address] [place] [address] Jefferson Gibbs DO [address] [place] [address] [place] [address] documented as of this encounter Visit Diagnoses Not on filedocumented in this encounter Care Teams Crane Crew Supervisor Relationship Specialty Start Date End Date Ignacio Das MD [address] [facility] [place] [phone] PCP - General Family Medicine 04/13/23 documented as of this encounter
--- OUTSIDE RECORDS SUMMARY | 2025-05-24 12:15 | XMS_ITS | Clinical Summary ---
Author Organization [facility] Address [address] [place] [address] Care Team Providers Care Car Racer Name Role Phone Ignacoi Das MD Unavailable [phone] 1 Social History Tobacco Use Types Packs/Day Years Used Date Smoking Tobacco: Never Assessed Area Deprivation Index Answer Date Corky rded National Score (1-100), lower number is lower ri sk 70 11/01/2022 State Score (1-10), lower number is lower risk N ot on file 11/01/2022 Data from: https://www.neighborhoodatlas.medicine.[facility].edu/. Last address used for calculation [address] [place] [address] 11/01/2022 Comments Unknown Sex and Gender Information Value Date Recorded Sex Assigned at Not on file Legal Sex Female 7:07 PM EST Gender Identity Not on file Sexual Orientation Not on file Plan of Treatment Health Maintenance Due Date Last Done Comments Anxiety Screening 2009 Depression Screening 2009 HIV Screening 2009 Hepatitis C Screening 2009 Cervical Cancer Screening 2012 Influenza Vaccine (#1) 2025 9, 08/08/2018, 08/22/2009 DTaP,Tdap,Td Vaccine (7 - Td or Tdap) 02/06/2031 02/06/2021, 08/09/2018, 04/10/1993, Additional history exists Hepatitis B Vaccine Completed 06/19/2004, 03/27/2004, 12/18/2003 Insurance [facility] MEDICAID Care Teams Car Racer Relationship Specialty Start Date End Date Ignacio Das MD Referring Family Medicine 09/01/22
--- OUTSIDE RECORDS SUMMARY | 2025-05-24 12:15 | XMS_ITS | Encounter Summary ---
Author Organization [facility] Address [address] [place] [address] Care Team Providers Care Safety Glass Installer Name Role Phone Ignacio Das MD Primary Care Provider [phone] Encounter Details Date Type Department Care Team (Late Contact Info) Description 05/27/2023 Abstract [facility] [facility] [address] [place] [phone] Jefferson Gibbs DO [address] [facility] [place] [address] Social History Tobacco Use Types Packs/Day Years [...] [address] [place] [phone] Alejandra Leiva MD [address] [place] [address] 04/09/2026 9:00 AM EDT Office Visit [facility] [address] [place] [address] Jefferson Gibbs DO [address] [facility] [place] [address] documented as of this encounter Visit Diagnoses Not on filedocumented in this encounter Care Teams Safety Glass Installer Relationship Specialty Start Date End Date Ignacio Das MD [address] [facility] [place] [address] PCP - General Family Medicine 04/13/23 documented as of this encounter
--- OUTSIDE RECORDS SUMMARY | 2025-05-24 12:15 | XMS_ITS | Patient Health Record ---
Author Organization [facility] in [place] Address [address] [place] [address] Care Team Providers Care Physical Security Manager Name Role Phone Kendrick Das Primary Care Provider Breonna Sanchez Unavailable [phone] Allergies No Known Allergies Results Component Value Reference Range Notes MAGNESIUM Reviewed date:07/28/2024 07:31:04 PM Interpretation: Performing Lab: Notes/Report: [facility] , Magnesium 1.5 1.8-2.4 mg/dL Performing Lab: see note ML - [facility] LB PHOSPHORUS Reviewed date:07/28/2024 07:31:04 PM Interpretation: Performing Lab: Notes/Report: [facility] , Phosphorus 3.6 2.6-4.7 mg/dL Performing Lab: see note ML - [facility] LB VITAMIN D 25 [place] Reviewed date:07/28/2024 07:31:04 PM Interpretation: Performing Lab: Notes/Report: [facility] , Vitamin D 21.7 <20 ng/mL Vit D deficient 20-<30 ng/mL Vit D insufficient 30-100 ng/mL Vit D sufficient >100 ng/mL Potential Toxicity Performing Lab: see note ML - [facility] LB Calcium, Ionized, Serum Reviewed date:07/29/2024 01:04:17 PM Interpretation: Performing Lab: Notes/Report: [facility] , Calcium, Ionized, Serum 5.2 4.5-5.6 mg/dL Performed at: - [facility] [id number] Parking Patroller: Travis Menjivar PhD, Phone: [phone] Performing Lab: see note LC - [facility] LB AMMONIA Reviewed date:09/08/2024 02:54:07 PM Interpretation: Performing Lab: Notes/Report: [facility] , Ammonia <10 11-32 umol/L Performing Lab: see note ML - [facility] LB CBC AUTO DIFF Reviewed date:09/08/2024 02:54:07 PM Interpretation: Performing Lab: Notes/Report: [facility] , White Blood Count 6.0 4.0-11.0 [...] Performing Lab: see note ML - [facility] LB CRP Reviewed date:09/08/2024 02:54:07 PM Interpretation: Performing Lab: Notes/Report: [facility] , C Reactive Protein <0.50 <=0.50 mg/dL Performing Lab: see note ML - [facility] LB MAGNESIUM Reviewed date:09/08/2024 02:54:07 PM Interpretation: Performing Lab: Notes/Report: [facility] , Magnesium 1.6 1.8-2.4 mg/dL Performing Lab: see note - [facility] LB PROF 14(COMP METB) Reviewed date:09/08/2024 02:54:07 PM Interpretation: Performing Lab: Notes/Report: [facility] , Sodium 141 136-145 mmol/L Potassium [...] Performing Lab: see note ML - [facility] LB UA DIP NONAUTO WO MICRO [...] PM Interpretation: Performing Lab: Notes/Report: Source Facility: [place] [address] XRay Report Signed Patient: DIANA BARRIGA MR#: [id number] : 1990 Acct:[id number] Age/Sex: 34 / F ADM Date: 03/28/25 Loc: RAD Attending Dr: Domingo Das M.D. Ordering Physician: Domingo Das M.D. Date of Service: 03/28/25 Procedure(s): XR sacrum coccyx min 2V Accession Number(s): [id number] cc: Domingo Das M.D. [place] [address] Patient Name: DIANA BARRIGA MRN: [id number] date: 1990 Sex: F Assigned Patient Location: [facility] Current Patient Location: [facility] Accession/Order Number: [id number] Exam Date: 03/28/2025 08:29 Report Date: 03/28/2025 [...] Celis M.D. 03/28/2025 8:35 AM Dictation Location: [place] [address] Electronically authenticated by: [id number] Y Date: 03/28/2025 08:35 Dictated By: Imani Celis M.D. Signed By: 03/28/2537 DD/ 4 TD/TT: Supervisory Examiner: [place] [address] XRay Report Signed Patient: RAMIN BARRIGA MR#: [id number] : 1990 Acct:[id number] Age/Sex: 34 / F ADM Date: 03/28/25 Loc: RAD Attending Dr: Radha Das M.D. Ordering Physician: Domingo Das M.D. Date of Service: 03/28/25 Procedure(s): XR sac rum coccyx min 2V Accession Number(s): [id number] cc: Domingo Das M.D. [place] [address] Patient Name: DIANA BARRIGA MRN: [id number] date: 1990 Sex: F Assigned Patient Location: [facility] Current Patient Location: [facility] Accession/Order Numb er: [id number] Exam Date: 03/28/2025 08:29 Report Date: 03/28/2025 [...] Celis M.D. 03/28/2025 8:35 AM Dictation Location: [place] [address] Electronically authenticated by: [id number] Y Date: 03/28/2025 08:35 Dictated By: Imani Celis M.D. Signed By: 03/28/2537 DD/ TD/TT: Supervisory Examiner: Erythrocyte Sedimentation Ra te Reviewed date:09/08/2024 02:54:07 PM Interpretation: Performing Lab: Notes/Report: [facility] , Erythrocyte Sedimentation Rate 10 <=20 mm/hr Performing Lab: see note ML - [facility] LB UA (CLEAN or CATCH) AUTOMATED LOGISTICS SPECIALIST or M ICRO IF IND. Reviewed date:10/02/2024 08:18:34 PM Interpretation: Performing Lab: Notes/Report: [facility] , Color Urine LT. YELLOW YELLOW Clarity Urine CLOUDY CLEAR Specific [place] Urine 1.020 1.005-1.025 pH Urine 7.5 5.0-9.0 Protein Urine NEGATIVE NEG/TRACE mg/dL Glucose Urine UA NEGATIVE NEGATIVE mg/dL Bilirubin Urine NEGATIVE NEGATIVE Ketones Urine NEGATIVE NEGATIVE mg/dL Blood Urine NEGATIVE NEGATIVE Nitrite Urine NEGATIVE NEGATIVE Urobilinogen Urine 1.0 0.2-1.0 EU/dL Leukocyte Esterase Urine MODERATE NEGATIVE Urine Microscopic Indicated YES Performing Lab: see note ML - [facility] LB URINE MICROSCOPIC ONLY Reviewed date:10/02/2024 08:18:34 PM Interpretation: Performing Lab: Notes/Report: [facility] , WBC Urine 5-10 NONE SEEN #/HPF RBC Urine 0-2 0-2 #/HPF Bacteria Urine SMALL NONE SEEN #/HPF Mucus Urine TRACE NONE SEEN Squamous Epithelial Cell Urine FEW NONE/RARE #/LPF Crystals Seen? None Seen None Seen #/HPF Amorphous Sediment Urine FEW Cast Seen? NONE SEEN NONE SEEN #/LPF Urine Culture Indicated YES Performing Lab: see note ML - [facility] LB Urine Culture - [facility] Reviewed date:12/07/2024 07:22:21 PM Interpretation: Performing Lab: Notes/Report: [facility] , Urine Culture - [facility] See Below For Report [facility]rine [facility] 30,000 colonies/ml mixed [facility]rine [facility] bacterial skin contaminants [facility] 30,000 colonies/ml mixed Urine [facility] - [facility] 2 Days Urine Culture - [facility] 30,000 colonies/ml mixed [facility]rine [facility] Urine Culture [facility] 30,000 colonies/ml mixed Urine [facility] Testing performed a [facility] Urine Culture - [facility] 30,000 colonies/ml mixed [facility]rine [facility] [address] [place] [address] Urine Culture - [facility] 30,000 colonies/ml mixed Performing Lab: see note ML - [facility] LB XR abdomen 1V Reviewed date:12/03/2024 02:14:40 PM Interpretation: Performing Lab: Notes/Report: Source Facility: [facility] [place] [address] XRay Report Signed Patient: DIANA BARRIGA MR#: [id number] : 1990 Acct:[id number] Age/Sex: 34 / F ADM Date: 12/02/24 Loc: ER Attending Dr: Ordering Physician: Ninoska Leonard Date of Service: 12/02/24 Procedure(s): XR abdomen 1V Accession Number(s): [id number] cc: Domingo Das M.D.; Ninoska Leonard [place] [address] Patient Name: DIANA BARRIGA MRN: [id number] date: 1990 Sex: F Assigned Patient Location: ER Current Patient Location: Accession/Order Number: [id number] Exam Date: 12/02/2024 18:12 Report Date: 12/02/2024 [...] M.D. Signed By: 12/02/242008 DD/ 06 TD/TT: Supervisory Examiner: [place] [address] XRay Report Signed Patient: RAMIN BARRIGA MR#: [id number] : 1990 Acct:[id number] Age/Sex: 34 / F ADM Date: 12/02/24 Loc: ER Attending Dr: Ordering Physician: Ninoska Leonard Date of Service: 12/02/24 Procedure(s): XR abd omen 1V Accession Number(s): [id number] cc: Domingo Das M.D. ; Ninoska Leonard [place] [address] Patient Name: DIANA BARRIGA MRN: [id number] date: 1990 Sex: F Assigned Patient Location: ER Current Patient Location: Accession/Order Numb er: [id number] Exam Date: 12/02/2024 18:12 Report Date: 12/02/2024 [...] M.D. Signed By: 12/02/242008 DD/ 06 TD/TT: Supervisory Examiner: NM KIDNEY W FLOW AND FUNCTIO N W PHARMACOLOGICAL INTERVENTION Reviewed date:01/22/2025 03:38:47 PM Interpretation: Performing Lab: Notes/Report: EXAMINATION: NM KIDNEY W FLOW AND FUNCTION W PHARMACOLOGICAL INTERVENTION Performed at: [address] [address] Performed at: [facility] Reviewed date:03/28/2025 04:31:58 PM Interpretation: Performing Lab: Notes/Report: Radiology exam is complete. No Radiologist dictation. Please follow up with ordering provider. Performed at: [facility] [employer] [address] [place] [id number] Performed at: Urine Culture - [facility] Reviewed date:05/08/2025 02:50:28 PM Interpretation: Performing Lab: Notes/Report: [facility] , Urine Culture - [facility] See Below For Report Urine [facility] Testing performed at [facility] O:CITFRC Isolated Urine Culture - [facility] Organism Comments Organism: 1.1 Antibiotic Interpretation ANASTASIA Status Urine Culture - [facility] [address] [place] [address] Urine Culture - [facility] Testing performed at [facility] O:CITFRC Isolated Urine Culture - [facility] Organism Comments Organism: 1.1 Antibiotic Interpretation ANASTASIA Status Urine Culture - [facility] See Below For Report Urine Culture - [facility] Testing performed at [facility] O:CITFRC Isolated Urine Culture - [facility] Organism Comments Organism: 1.1 Antibiotic Interpretation ANASTASIA Status Urine Culture - [facility] See Below For Report Urine Culture - [facility] Testing performed at [facility] O:CITFRC Isolated Urine Culture - [facility] Organism Comments Organism: 1.1 Antibiotic Interpretation ANASTASIA Status Urine Culture - [facility] 75,000 CFU/ML Urine Culture - [facility] Testing performed at [facility] O:CITFRC Isolated Urine Culture - [facility] Organism Comments Organism: 1.1 Antibiotic Interpretation ANASTASIA Status Urine Culture - [facility] See Below For Report Urine Culture - [facility] Testing performed at [facility] O:CITFRC Isolated Urine Culture - [facility] Organism Comments Organism: 1.1 Antibiotic Interpretation ANASTASIA Status Urine Culture - [facility] Amikacin S F Urine Culture - [facility] Testing performed at [facility] O:CITFRC Isolated Urine Culture - [facility] Organism Comments Organism: 1.1 Antibiotic Interpretation ANASTASIA Status Urine [facility] - [facility] Aztreonam I F Urine Culture - [facility] Testing performed at [facility] O:CITFRC Isolated Urine Culture - [facility] Organism Comments Organism: 1.1 Antibiotic Interpretation ANASTASIA Status Urine Culture - [facility] Ceftazidime I F Urine Culture - [facility] Testing performed at [facility] O:CITFRC Isolated Urine Culture - [facility] Organism Comments Organism: 1.1 Antibiotic Interpretation ANASTASIA Status Urine Culture - [facility] Ceftazidime/Avibact am S F Urine Culture - [facility] Testing performed at [facility] O:CITFRC Isolated Urine Culture - [facility] Organism Comments Organism: 1.1 Antibiotic Interpretation ANASTASIA Status Urine Culture - [facility] Ciprofloxacin S F Urine Culture - [facility] Testing performed at [facility] O:CITFRC Isolated Urine Culture - [facility] Organism Comments Organism: 1.1 Antibiotic Interpretation ANASTASIA Status Urine Culture - [facility] Ertapenem S F Urine Culture - [facility] Testing performed at [facility] O:CITFRC Isolated Urine Culture - [facility] Organism Comments Organism: 1.1 Antibiotic Interpretation ANASTASIA Status Urine Culture - [facility] Gentamicin S F Urine Culture - [facility] Testing performed at [facility] O:CITFRC Isolated Urine Culture - [facility] Organism Comments Organism: 1.1 Antibiotic Interpretation ANASTASIA Status Urine Culture - [facility] Levofloxacin S F Urine Culture - [facility] Testing performed at [facility] O:CITFRC Isolated Urine Culture - [facility] Organism Comments Organism: 1.1 Antibiotic Interpretation ANASTASIA Status Urine Culture - [facility] Meropenem S F Urine Culture - [facility] Testing performed at [facility] O:CITFRC Isolated Urine Culture - [facility] Organism Comments Organism: 1.1 Antibiotic Interpretation ANASTASIA Status Urine Culture - [facility] Nitrofurantoin S F Urine Culture - [facility] Testing performed at [facility] O:CITFRC Isolated Urine Culture - [facility] Organism Comments Organism: 1.1 Antibiotic Interpretation ANASTASIA Status Urine Culture - [facility] Tetracycline S F Urine Culture - [facility] Testing performed at [facility] O:CITFRC Isolated Urine Culture - [facility] Organism Comments Organism: 1.1 Antibiotic Interpretation ANASTASIA Status Urine Culture - [facility] Tigecycline S F Urine Culture - [facility] Testing performed at [facility] O:CITFRC Isolated Urine Culture - [facility] Organism Comments Organism: 1.1 Antibiotic Interpretation ANASTASIA Status Urine Culture - [facility] Tobramycin S F Urine Culture - [facility] Testing performed at [facility] O:CITFRC Isolated Urine Culture - [facility] Organism Comments Organism: 1.1 Antibiotic Interpretation ANASTASIA Status Urine Culture - [facility] Cefepime S F Urine Culture - [facility] Testing performed at [facility] O:CITFRC Isolated Urine Culture - [facility] Organism Comments Organism: 1.1 Antibiotic Interpretation ANASTASIA Status Urine Culture - [facility] Ceftriaxone I F Urine Culture - [facility] Testing performed at [facility] O:CITFRC Isolated Urine Culture - [facility] Organism Comments Organism: 1.1 Antibiotic Interpretation ANASTASIA Status Urine Culture - [facility] Piperacillin/Tazoba ctam I F Urine Culture - [facility] Testing performed at [facility] O:CITFRC Isolated Urine Culture - [facility] Organism Comments Organism: 1.1 Antibiotic Interpretation ANASTASIA Status Urine Culture - [facility] Trimethoprim/Sulfa R F Urine Culture - [facility] Testing performed at [facility] O:CITFRC Isolated Urine Culture - [facility] Organism Comments Organism: 1.1 Antibiotic Interpretation ANASTASIA Status Performing Lab: see note ML - [facility] LB SEE REPORT - Non Linear Editor Id information not found for OBX-specific improvement director legend URINE MICROSCOPIC ONLY Reviewed date:05/06/2025 03:21:39 PM Interpretation: Performing Lab: Notes/Report: [facility] , WBC Urine 5-10 NONE SEEN #/HPF RBC Urine 2-5 0-2 #/HPF Bacteria Urine LARGE NONE SEEN #/HPF Mucus Urine NONE SEEN NONE SEEN Squamous Epithelial Cell Urine FEW NONE/RARE #/LPF Crystals Seen? None Seen None Seen #/HPF Cast Seen? NONE SEEN NONE SEEN #/LPF Urine Culture Indicated YES[place] Performing Lab: see note ML - [facility] LB UA (CLEAN or CATCH) AUTOMATED LOGISTICS SPECIALIST or M ICRO IF IND. Reviewed date:05/06/2025 03:21:39 PM Interpretation: Performing Lab: Notes/Report: [facility] , Color Urine LT. YELLOW YELLOW Clarity Urine CLOUDY CLEAR Specific [place] Urine 1.015 1.005-1.025 pH Urine 7.5 5.0-9.0 Protein Urine NEGATIVE NEG/TRACE mg/dL Glucose Urine UA NEGATIVE NEGATIVE mg/dL Bilirubin Urine NEGATIVE NEGATIVE Ketones Urine NEGATIVE NEGATIVE mg/dL Blood Urine TRACE-I NEGATIVE Nitrite Urine NEGATIVE NEGATIVE Urobilinogen Urine 0.2 0.2-1.0 EU/dL Leukocyte Esterase Urine MODERATE NEGATIVE Urine Microscopic Indicated YES Performing Lab: see note ML - [facility] LB PROF CHEM 8 (BAS METB) Reviewed date:05/06/2025 03:21:39 PM Interpretation: Performing Lab: Notes/Report: [facility] , Sodium 144 136-145 mmol/L Potassium 3.4 3.5-5.1 mmol/L Chloride 104 98-107 mmol/L Carbon Dioxide 30.3 21.0-32.0 mmol/L Anion Gap 13.1 Glucose 90 74-106 mg/dL Blood Urea Nitrogen 8.0 7.0-18.0 mg/dL Creatinine 0.74 0.55-1.02 mg/dL Estimated GFR ( Kyung >60 >=60 mL/min/1.73m 2 Estimated GFR (Non- Shefali >60 >=60 mL/min/1.73m 2 BUN Creatinine Ratio 10.8 Calcium 9.5 8.5-10.1 mg/dL Performing Lab: see note ML - [facility] LB CBC AUTO DIFF Reviewed date:05/06/2025 03:21:39 PM Interpretation: Performing Lab: Notes/Report: [facility] , White Blood Count 6.8 4.0-11.0 10 3/uL Red Blood Count 4.33 4.20-5.40 10 6/uL Hemoglobin 12.7 12.0-16.0 g/dL Hematocrit 37.5 36.0-48.0 % Mean Corpuscular Volume 86.6 81.0-99.0 fL Mean Corpuscular Hemoglobin 29.3 26.7-34.0 pg Mean Corpuscular HGB Conc 33.9 29.9-35.2 g/dL Red Cell Distribution Width 12.7 11.0-15.0 % Platelet Count 299 150-450 10 3/uL Mean Platelet Volume 9.6 9.5-13.5 fL Neutrophils Percent Auto 41.6 43.0-75.0 % Lymphocytes Percent Auto 47.8 20.5-60.0 % Monocytes Percent Auto 9.2 1.7-12.0 % Eosinophils Percent Auto 0.7 0.9-7.0 % Basophils Percent Auto 0.7 0.2-2.0 % Immature Granulocytes Pct Auto 0.0 0.0-0.5 % Neutrophils Absolute Auto 2.8 1.4-6.5 10 3/uL Lymphocytes Absolute Auto 3.3 1.2-3.8 10 3/uL Monocytes Absolute Auto 0.6 0.3-0.8 10 3/uL Eosinophils Absolute Auto 0.1 0.0-0.7 10 3/uL Basophils Absolute Auto 0.1 0.0-0.1 10 3/uL Immature Granulocytes Abs Auto 0.00 0.00-0.03 10 3/uL Performing Lab: see note ML - [facility] LB IGP,Aptima HPV,Age Gdln Reviewed date:04/12/2025 09:12:34 PM Interpretation: Performing Lab: Notes/Report: SPATULA-ALONE VAGINA [facility] , Age Gdln ACOG Testing Note . TESTS RESULT FLAG UNITS REF RANGE LAB Clinician Provided Cytology Information Source.............Nv fly No. of containers..01 ThinPrep Vial Age Algo ACOG Radha... 30-65 01 FLAG LEGEND: L-Low Normal,H-High Normal,LL-Alert Low,HH-Alert High <-Panic Low,>-Panic High,A-Abnormal,AA-Cr itical Abnormal Performed at: 01 =G [facility] [address] [address] [place] [address] Shereen Caal MD, IGP, Aptima HPV, rfx 16/18,45 Note . TESTS RESULT FLAG UNITS REF RANGE LAB DIAGNOSIS: [A] 02 EPITHELIAL CELL ABNORMALITY. ATYPICAL SQUAMOUS CELLS OF UNDETERMINED SIGNIFICANCE (ASC-US). Recommendation: [A] 02 Suggest follow up as clinically appropriate. Specimen adequacy: 02 Satisfactory for evaluation. Performed by: 02 Tamiko Barrow, Planting Material Unloader ([facility]) Electronically si... Capri Boston MD, Pathologist . 02 Pathologist [...] L-Low Normal,H-High Normal,LL-Alert Low,HH-Alert High <-Panic Low,>-Panic High,A-Abnormal,AA-Cr itical Abnormal Performed at: 02 WB [facility] [address] [place] [address] Shereen Caal MD, HPV Aptima Negative Negative This nucleic acid amplification test detects fourteen high- risk HPV types (16,18,31,33,35,39,45 ,51,52,56,58,59,66,68 ) without differentiation. Performed at: =G - [facility] [address] [id number] Parking Patroller: Shereen Caal MD, Phone: [phone] Performed at: - [facility] [id number] Parking Patroller: Shereen Caal MD, Phone: [phone] Performing Lab: see note - [facility] LB XR lumbar spine min 4V Reviewed date:03/28/2025 04:31:58 PM Interpretation: Performing Lab: Notes/Report: Source Facility: [place] [address] XRay Report Signed Patient: DIANA BARRIGA MR#: [id number] : 1990 Acct:[id number] Age/Sex: 34 / F ADM Date: 03/28/25 Loc: RAD Attending Dr: Domingo Das M.D. Ordering Physician: Domingo Das M.D. Date of Service: 03/28/25 Procedure(s): XR lumbar spine min 4V Accession Number(s): [id number] cc: Domingo Das M.D. [place] [address] Patient Name: DIANA BARRIGA MRN: [id number] date: 1990 Sex: F Assigned Patient Location: [facility] Current Patient Location: [facility] Accession/Order Number: [id number] Exam Date: 03/28/2025 08:29 Report Date: 03/28/2025 [...] Celis M.D. 03/28/2025 8:35 AM Dictation Location: [place] [address] Electronically authenticated by: [id number] Y Date: 03/28/2025 08:35 Dictated By: Imani Celis M.D. Signed By: 03/28/2538 DD/ TD/TT: Supervisory Examiner: [place] [address] XRay Report Signed Patient: RAMIN BARRIGA MR#: [id number] : 1990 Acct:[id number] Age/Sex: 34 / F ADM Date: 03/28/25 Loc: [facility] Attending Dr: Radha Das M.D. Ordering Physician: Domingo Das M.D. Date of Service: 03/28/25 Procedure(s): XR lum bar spine min 4V Accession Number(s): [id number] cc: Domingo Das M.D. [place] [id number] Patient Name: DIANA BARRIGA MRN: [id number] date: 1990 Sex: F Assigned Patient Location: [facility] Current Patient Location: [facility] Accession/Order Numb er: [id number] Exam Date: 03/28/2025 08:29 Report Date: 03/28/2025 [...] Celis M.D. 03/28/2025 8:35 AM Dictation Location: [place] [address] Electronically authenticated by: [id number] Y Date: 03/28/2025 08:35 Dictated By: Imani Celis M.D. Signed By: 03/28/25 0838 DD/ 0835 TD/TT: Supervisory Examiner: [facility]rine [facility] Reviewed date:01/24/2025 03:36:36 PM Interpretation: Performing Lab: Notes/Report: [facility] , Urine Culture [facility] See Below For Report Urine [facility] Testing performed at [facility] O:ESCCOL Isolated Urine Culture - [facility] [place] Count Organism: 1.1 Antibiotic Interpretation ANASTASIA Status Urine Culture - [facility] [address] [address] Urine Culture - [facility] Testing performed at [facility] O:ESCCOL Isolated Urine Culture - [facility] [place] Count Organism: 1.1 Antibiotic Interpretation ANASTASIA Status Urine Culture - [facility] See Below For Report Urine Culture - [facility] Testing performed at [facility] O:ESCCOL Isolated Urine Culture - [facility] [place] Count Organism: 1.1 Antibiotic Interpretation ANASTASIA Status Urine Culture - [facility] See Below For Report Urine Culture - [facility] Testing performed at [facility] O:ESCCOL Isolated Urine Culture - [facility] [place] Count Organism: 1.1 Antibiotic Interpretation ANASTASIA Status Urine [facility] >100,000 Urine Culture - [facility] Testing performed at [facility] O:ESCCOL Isolated Urine Culture - [facility] [place] Count Organism: 1.1 Antibiotic Interpretation ANASTASIA Status Urine Culture - [facility] See Below For Report Urine Culture - [facility] Testing performed at [facility] O:ESCCOL Isolated Urine Culture - [facility] [place] Count Organism: 1.1 Antibiotic Interpretation ANASTASIA Status Urine Culture - [facility] Amikacin S F Urine Culture - [facility] Testing performed at [facility] O:ESCCOL Isolated Urine Culture - [facility] [place] Count Organism: 1.1 Antibiotic Interpretation ANASTASIA Status Urine Culture - [facility] Amoxicillin/Clavula chacho S F Urine Culture - [facility] Testing performed at [facility] O:ESCCOL Isolated Urine Culture - [facility] [place] Count Organism: 1.1 Antibiotic Interpretation ANASTASIA Status Urine [facility] - [facility] Ampicillin S F Urine Culture - [facility] Testing performed at [facility] O:ESCCOL Isolated Urine Culture - [facility] [place] Count Organism: 1.1 Antibiotic Interpretation ANASTASIA Status Urine [facility] Aztreonam S F Urine Culture - [facility] Testing performed at [facility] O:ESCCOL Isolated Urine Culture - [facility] [place] Count Organism: 1.1 Antibiotic Interpretation ANASTASIA Status Urine Culture - [facility] Ceftazidime S F Urine Culture - [facility] Testing performed at [facility] O:ESCCOL Isolated Urine Culture - [facility] [place] Count Organism: 1.1 Antibiotic Interpretation ANASTASIA Status Urine Culture - [facility] Ceftazidime/Avibact am S F Urine Culture - [facility] Testing performed at [facility] O:ESCCOL Isolated Urine Culture - [facility] [place] Count Organism: 1.1 Antibiotic Interpretation ANASTASIA Status Urine Culture [facility] Ceftolozane/Tazobac lewis S F Urine Culture - [facility] Testing performed at [facility] O:ESCCOL Isolated Urine Culture - [facility] [place] Count Organism: 1.1 Antibiotic Interpretation ANASTASIA Status Urine Culture - [facility] Ciprofloxacin S F Urine Culture - [facility] Testing performed at [facility] O:ESCCOL Isolated Urine Culture - [facility] [place] Count Organism: 1.1 Antibiotic Interpretation ANASTASIA Status Urine Culture - [facility] Ertapenem S F Urine Culture - [facility] Testing performed at [facility] O:ESCCOL Isolated Urine Culture - [facility] [place] Count Organism: 1.1 Antibiotic Interpretation ANASTASIA Status Urine [facility] Gentamicin S F Urine Culture - [facility] Testing performed at [facility] O:ESCCOL Isolated Urine Culture - [facility] [place] Count Organism: 1.1 Antibiotic Interpretation ANASTASIA Status Urine [facility] Levofloxacin S F Urine Culture - [facility] Testing performed at [facility] O:ESCCOL Isolated Urine Culture - [facility] [place] Count Organism: 1.1 Antibiotic Interpretation ANASTASIA Status Urine Culture [facility] Meropenem S F Urine Culture - [facility] Testing performed at [facility] O:ESCCOL Isolated Urine Culture - [facility] [place] Count Organism: 1.1 Antibiotic Interpretation ANASTASIA Status Urine Culture - [facility] Meropenem/Vaborbact am S F Urine Culture - [facility] Testing performed at [facility] O:ESCCOL Isolated Urine Culture - [facility] [place] Count Organism: 1.1 Antibiotic Interpretation ANASTASIA Status Urine Culture - [facility] Nitrofurantoin S F Urine Culture - [facility] Testing performed at [facility] O:ESCCOL Isolated Urine Culture - [facility] [place] Count Organism: 1.1 Antibiotic Interpretation ANASTASIA Status Urine Culture - [facility] Tetracycline S F Urine Culture - [facility] Testing performed at [facility] O:ESCCOL Isolated Urine Culture - [facility] [place] Count Organism: 1.1 Antibiotic Interpretation ANASTASIA Status Urine Culture - [facility] Tigecycline S F Urine Culture - [facility] Testing performed at [facility] O:ESCCOL Isolated Urine Culture - [facility] [place] Count Organism: 1.1 Antibiotic Interpretation ANASTASIA Status Urine Culture - [facility] Tobramycin S F Urine Culture - [facility] Testing performed at [facility] O:ESCCOL Isolated Urine Culture - [facility] [place] Count Organism: 1.1 Antibiotic Interpretation ANASTASIA Status Urine Culture - [facility] Ampicillin/Sulbactam S F Urine Culture - [facility] Testing performed at [facility] O:ESCCOL Isolated Urine Culture - [facility] [place] Count Organism: 1.1 Antibiotic Interpretation ANASTASIA Status Urine Culture - [facility] Cefazolin S F Urine Culture - [facility] Testing performed at [facility] O:ESCCOL Isolated Urine Culture - [facility] [place] Count Organism: 1.1 Antibiotic Interpretation ANASTASIA Status Urine Culture - [facility] Cefepime S F Urine Culture - [facility] Testing performed at [facility] O:ESCCOL Isolated Urine Culture - [facility] [place] Count Organism: 1.1 Antibiotic Interpretation ANASTASIA Status Urine Culture - [facility] Ceftriaxone S F Urine Culture - [facility] Testing performed at [facility] O:ESCCOL Isolated Urine Culture - [facility] [place] Count Organism: 1.1 Antibiotic Interpretation ANASTASIA Status Urine Culture - [facility] Cefuroxime S F Urine Culture - [facility] Testing performed at [facility] O:ESCCOL Isolated Urine Culture - [facility] [place] Count Organism: 1.1 Antibiotic Interpretation ANASTASIA Status Urine Culture - [facility] Piperacillin/Tazoba ctam S F Urine Culture - [facility] Testing performed at [facility] O:ESCCOL Isolated Urine Culture - [facility] [place] Count Organism: 1.1 Antibiotic Interpretation ANASTASIA Status Urine Culture - [facility] Trimethoprim/Sulfa S F Urine Culture - [facility] Testing performed at [facility] O:ESCCOL Isolated Urine Culture - [facility] [place] Count Organism: 1.1 Antibiotic Interpretation ANASTASIA Status Performing Lab: see note ML - [facility] LB SEE REPORT - Non Linear Editor Id information not found for OBX-specific improvement director legend UA Micro, reflex to culture Reviewed date:01/22/2025 03:38:47 PM Interpretation: Performing Lab: Notes/Report: [facility] , Color Urine LT. YELLOW YELLOW Clarity Urine CLOUDY CLEAR Specific [place] Urine 1.010 1.005-1.025 pH Urine 6.5 5.0-9.0 [...] SEEN NONE SEEN #/LPF Urine Culture Indicated [place] [place] Performing Lab: see note ML - [facility] LB HCG Qualitative* Reviewed date:01/22/2025 03:38:47 PM Interpretation: Performing Lab: Notes/Report: [facility] , HCG Qualitative NEGATIVE NEGATIVE Performing Lab: see note ML - [facility] LB PROF 14(COMP METB) Reviewed date:01/22/2025 03:38:47 PM Interpretation: Performing Lab: Notes/Report: [facility] , Sodium 139 136-145 mmol/L Potassium 3.3 [...] 1.0 Performing Lab: see note ML - [facility] LB LACTATE or LACTIC ACID Reviewed date:01/22/2025 03:38:47 PM Interpretation: Performing Lab: Notes/Report: [facility] , Lactate/Lactic Acid 1.3 0.4-2.0 mmol/L Performing Lab: see note - [facility] LB CBC AUTO DIFF Reviewed date:01/22/2025 03:38:47 PM Interpretation: Performing Lab: Notes/Report: [facility] , White Blood Count 8.2 4.0-11.0 [...] 10 3/uL Performing Lab: see note - [facility] LB FL VOIDING URETHROCYSTOGRAM S AND I Reviewed date:01/22/2025 03:38:47 PM Interpretation: Performing Lab: Notes/Report: EXAMINATION: Performed at: [facility] [address] [place] [address] Performed at: UA Micro, reflex to culture Reviewed date:12/03/2024 02:14:40 PM Interpretation: Performing Lab: Notes/Report: [facility] , Color Urine DK. ORANGE YELLOW Clarity Urine CLEAR CLEAR Specific [place] Urine <=1.005 1.005-1.025 pH Urine 6.5 5.0-9.0 [...] SEEN NONE SEEN #/LPF Urine Culture Indicated [place] [place] Performing Lab: see note ML - [facility] LB PROF 14(COMP METB) Reviewed date:12/03/2024 02:14:40 PM Interpretation: Performing Lab: Notes/Report: [facility] , Sodium 142 136-145 mmol/L Potassium [...] 1.1 Performing Lab: see note ML - [facility] LB LIPASE Reviewed date:12/03/2024 02:14:40 PM Interpretation: Performing Lab: Notes/Report: [facility] , Lipase 29.0 16.0-77.0 U/L Performing Lab: see note ML - [facility] LB LACTATE or LACTIC ACID Reviewed date:12/03/2024 02:14:40 PM Interpretation: Performing Lab: Notes/Report: [facility] , Lactate/Lactic Acid 1.1 0.4-2.0 mmol/L Performing Lab: see note ML - [facility] LB CBC AUTO DIFF Reviewed date:12/03/2024 02:14:40 PM Interpretation: Performing Lab: Notes/Report: [facility] , White Blood Count 7.3 4.0-11.0 [...] 3/uL Performing Lab: see note ML - [facility] LB Urine Culture, Routine Reviewed date:10/04/2024 12:21:27 PM Interpretation: Performing Lab: Notes/Report: [facility] , Urine Culture, Routine See Below For Report Urine Culture, Routine Urine Culture, Routine Mixed urogenital greg Urine Culture, Routine Urine Culture, Routine 10,000-25,000 col bryon forming units per mL Urine Culture, Routine Urine Culture, Routine Performed at: - [facility] [place] Urine Culture, Routine Urine Culture, Routine [address] [place], [place] [id number] Urine Culture, Routine Urine Culture, Routine Parking Patroller: Arie Menjivar PhD, Phone: [phone] Urine Culture, Routine Performing Lab: see note LC - [facility] LB SEE REPORT - Non Linear Editor Id information not found for OBX-specific improvement director legend CT abdomen pelvis wo con Reviewed date:09/28/2024 07:53:59 PM Interpretation: Performing Lab: Notes/Report: Source Facility: [facility], [place] [address] [address] [address] Scan Report Signed Patient: DIANA BARRIGA MR#: [id number] : 1990 Acct:[id number] Age/Sex: 34 / F ADM Date: 09/28/24 Loc: ER Attending Dr: Ordering Physician: Stephanie Ramirez Date of Service: 09/28/24 Procedure(s): CT abdomen pelvis wo con Accession Number(s): [id number] cc: Domingo Das M.D. [place] [address] Patient Name: DIANA BARRIGA MRN: [id number] date: 1990 Sex: F Assigned Patient Location: ER Current Patient Location: ER Accession/Order Number: [id number] Exam Date: 09/28/2024 15:52 Report Date: 09/28/2024 [...] Signed By: 09/28/24 1631 DD/ 1628 TD/TT: Supervisory Examiner: [place] [address] CT Scan Report Signed Patient: RAMIN BARRIGA MR#: [id number] : 1990 Acct:[id number] Age/Sex: 34 / F ADM Date: 09/28/24 Loc: ER Attending Dr: Ordering Physician: Stephanie Ramirez Date of Service: 09/28/24 Procedure(s): CT abd omen pelvis wo con Accession Number(s): [id number] cc: Domingo Das M.D. [place] [address] Patient Name: DIANA BARRIGA MRN: [facility]:[id number] date: 1990 Sex: F Assigned Patient Location: ER Current Patient Location: ER Accession/Order Numb er: [id number] Exam Date: 15:52 Report Date: 09/28/2024 16:28 [...] Signed By: 09/28/24 1631 DD/ 1628 TD/TT: Supervisory Examiner: Urine Culture, Routine Reviewed date:10/03/2024 06:15:29 PM [...] Status [facility]rine [facility], [facility], Routine Organism: Gram negative christelle : O:ECMS Isolated O:GNR Isolated Organism: 1.1 Antibiotic Interpretation ANASTASIA Status Urine Culture, Routine [address] [place], [place] [id number] Urine Culture, Routine Organism: Gram negative christelle : O:ECMS Isolated O:GNR Isolated Organism: 1.1 Antibiotic Interpretation ANASTASIA Status Urine Culture, Routine Parking Patroller: Arie Menjivar PhD, Phone: [phone] Urine Culture, Routine Organism: Gram negative christelle [...] LC - [facility] LB SEE REPORT - Non Linear Editor Id information not found for OBX-specific improvement director legend Manual Differential Reviewed date:09/28/2024 07:53:59 PM Interpretation: Performing Lab: Notes/Report: [facility] , Segmented Neutrophils % Manual 37.0 43.0-75.0 [...] 1 0 3/uL Performing Lab: see note - [facility] LB URINE MICROSCOPIC ONLY Reviewed date:09/28/2024 07:53:59 PM Interpretation: Performing Lab: Notes/Report: [facility] , WBC Urine 50-75 NONE SEEN #/HPF RBC Urine 2-5 0-2 #/HPF Bacteria Urine LARGE NONE SEEN #/HPF Mucus Urine MODERATE NONE SEEN Squamous Epithelial Cell Urine FEW NONE/RARE #/LPF Crystals Seen? None Seen None Seen #/HPF Cast Seen? NONE SEEN NONE SEEN #/LPF Urine Culture Indicated YES Performing Lab: see note ML - [facility] LB UA (CLEAN or CATCH) AUTOMATED LOGISTICS SPECIALIST or M ICRO IF IND. Reviewed date:09/28/2024 07:53:59 PM Interpretation: Performing Lab: Notes/Report: [facility] , Color Urine LT. YELLOW YELLOW Clarity Urine SL CLOUDY CLEAR Specific [place] Urine 1.020 1.005-1.025 pH Urine 6.5 5.0-9.0 Protein Urine 30 NEG/TRACE mg/dL Glucose Urine UA NEGATIVE NEGATIVE mg/dL Bilirubin Urine NEGATIVE NEGATIVE Ketones Urine NEGATIVE NEGATIVE mg/dL Blood Urine MODERATE NEGATIVE Nitrite Urine POSITIVE NEGATIVE Urobilinogen Urine 1.0 0.2-1.0 EU/dL Leukocyte Esterase Urine SMALL NEGATIVE Urine Microscopic Indicated YES Performing Lab: see note ML - [facility] LB PROF 14(COMP METB) Reviewed date:09/28/2024 07:53:59 PM Interpretation: Performing Lab: Notes/Report: [facility] , Sodium 143 136-145 mmol/L Potassium [...] 1.0 Performing Lab: see note ML - [facility] LB CBC AUTO DIFF Reviewed date:09/28/2024 07:53:59 PM Interpretation: Performing Lab: Notes/Report: [facility] , White Blood Count 5.7 4.0-11.0 [...] Performing Lab: see note ML - [facility] LB XR hip BI w PEL 1V Reviewed date:07/29/2024 01:04:17 PM Interpretation: Performing Lab: Notes/Report: Source Facility: [facility]-[address] [place] [address] [place] [address] XRay Report Signed Patient: DIANA BARRIGA MR#: [id number] : 1990 Acct:[id number] Age/Sex: 33 / F ADM Date: 07/28/24 Loc: LAB Attending Dr: Domingo Das M.D. Ordering Physician: Domingo Das M.D. Date of Service: 07/28/24 Procedure(s): XR hip BI w PEL 1V Accession Number(s): [id number] cc: Domingo Das M.D. [place] [address] Patient Name: DIANA BARRIGA MRN: [id number] date: 1990 Sex: F Assigned Patient Location: LAB Current Patient Location: Accession/Order Number: [id number] Exam Date: 07/28/2024 09:45 Report Date: 07/29/2024 [...] M.D. Signed By: 07/29/24451 DD/ 9 TD/TT: Supervisory Examiner: [place] [address] XRay Report Signed Patient: RAMIN BARRIGA MR#: [id number] : 1990 Acct:[id number] Age/Sex: 33 / F ADM Date: 07/28/24 Loc: LAB Attending Dr: Radha Das M.D. Ordering Physician: Domingo Das M.D. Date of Service: 07/28/24 Procedure(s): XR hip BI w PEL 1V Accession Number(s): [id number] cc: Domingo Das M.D. [place] [address] Patient Name: DIANA BARRIGA MRN: [id number] date: 1990 Sex: F Assigned Patient Location: LAB Current Patient Location: Accession/Order Numb er: [id number] Exam Date: 09:45 Report Date: 07/29/2024 04:50 [...] M.D. Signed By: 07/29/24451 DD/ 9 TD/TT: Supervisory Examiner: XR lumbar spine min 4V Reviewed date:07/28/2024 07:31:04 PM Interpretation: Performing Lab: Notes/Report: Source Facility: [place] [address] XRay Report Signed Patient: DIANA BARRIGA MR#: [id number] : 1990 Acct:[id number] Age/Sex: 33 / F ADM Date: 07/28/24 Loc: LAB Attending Dr: Domingo Das M.D. Ordering Physician: Domingo Das M.D. Date of Service: 07/28/24 Procedure(s): XR lumbar spine min 4V Accession Number(s): [id number] cc: Domingo Das M.D. [place] [address] Patient Name: DIANA BARRIGA MRN: [id number] date: 1990 Sex: F Assigned Patient Location: LAB Current Patient Location: LAB Accession/Order Number: [id number] Exam Date: 07/28/2024 09:45 Report Date: 07/28/2024 [...] Rene M.D. Signed By: 07/28/24 1108 DD/ 04 TD/TT: Supervisory Examiner: [place] [address] XRay Report Signed Patient: RAMIN BARRIGA MR#: [id number] : 1990 Acct:[id number] Age/Sex: 33 / F ADM Date: 07/28/24 Loc: LAB Attending Dr: Radha Das M.D. Ordering Physician: Domingo Das M.D. Date of Service: 07/28/24 Procedure(s): XR lum bar spine min 4V Accession Number(s): [id number] cc: Domingo Das M.D. [place] [address] Patient Name: DIANA BARRIGA MRN: [id number] date: 1990 Sex: F Assigned Patient Location: LAB Current Patient Location: LAB Accession/Order Numb er: [id number] Exam Date: 09:45 Report Date: 07/28/2024 11:05 [...] Dictated By: Manfred Rene M.D. Signed By: 07/28/241107 DD/ 04 TD/TT: Supervisory Examiner: Vitamin B12 Reviewed date:07/29/2024 01:04:17 PM Interpretation: Performing Lab: Notes/Report: [facility] , Vitamin B12 559 799-3820 pg/mL Performed at: [facility] [address] [id number] Parking Patroller: Travis Menjivar PhD, Phone: [phone] Performing Lab: see note - [facility] LB TSH Reviewed date:07/28/2024 07:31:04 PM Interpretation: Performing Lab: Notes/Report: [facility] , Thyroid Stimulating Hormone 1.218 0.358-3.740 uIU/mL Performing Lab: see note ML - [facility] LB T4 Reviewed date:07/28/2024 07:31:04 PM Interpretation: Performing Lab: Notes/Report: [facility] , T4 Thyroxine 8.40 4.80-13.90 ug/dL Performing Lab: see note ML - [facility] LB PROF 14(COMP METB) Reviewed date:07/28/2024 07:31:04 PM Interpretation: Performing Lab: Notes/Report: [facility] , Sodium 139 136-145 mmol/L Potassium [...] Performing Lab: see note ML - [facility] LB IRON Reviewed date:07/28/2024 07:31:04 PM Interpretation: Performing Lab: Notes/Report: [facility] , Iron 54.0 50.0-170.0 ug/dL Performing Lab: see note ML - [facility] LB FREE T3 Reviewed date:07/28/2024 07:31:04 PM Interpretation: Performing Lab: Notes/Report: [facility] , Free T3 2.73 2.18-3.98 pg/mL Performing Lab: see note ML - [facility] LB FOLATE Reviewed date:07/28/2024 07:31:04 PM Interpretation: Performing Lab: Notes/Report: [facility] , Folate 4.40 8.60-58.90 ng/mL Performing Lab: see note ML - [facility] LB CBC AUTO DIFF Reviewed date:07/28/2024 10:17:10 AM Interpretation: Performing Lab: Notes/Report: [facility] , White Blood Count 6.7 4.0-11.0 [...] Performing Lab: see note ML - [facility] LB SARS-CoV-2 Ag* Reviewed date:06/29/2024 09:48:01 PM Interpretation: Performing Lab: Notes/Report: [facility] , SARS-CoV-2 Ag NEGATIVE NEGATIVE This [...] is revoked sooner. Performing Lab: see note - [facility] LB CT abdomen pelvis wo con Reviewed date:05/06/2025 03:21:39 PM Interpretation: Performing Lab: Notes/Report: Source Facility: [place] [address] [place] [address] CT Scan Report Signed Patient: DIANA BARRIGA MR#: [id number] : 1990 Acct:[id number] Age/Sex: 34 / F ADM Date: 05/05/25 Loc: ER Attending Dr: Ordering Physician: Herman Hay D.O. Date of Service: 05/05/25 Procedure(s): CT abdomen pelvis wo con Accession Number(s): [id number] cc: Domingo Das M.D. [address] [address] Patient Name: DIANA BARRIGA MRN: [id number] date: 1990 Sex: F Assigned Patient Location: ER Current Patient Location: ER Accession/Order Number: [id number] Exam Date: 05/05/2025 21:09 Report Date: 05/05/2025 21:15 At the request of: HERMAN HAY Procedure: CT abdomen pelvis wo con CT abdomen pelvis wo con 05/05/2025 8:55 PM SIGNS AND SYMPTOMS: left flank pain, UTI, hx kidney stones TECHNIQUE: Multidetector ct axial images of the abdomen and pelvis were obtained without IV contrast. Multiplanar reformats were performed and reviewed to further define anatomy and possible pathology. CT was performed with one or more of the following dose reduction techniques: Automated exposure control, adjustment of the mA and/or kV according to patient size, or use of iterative reconstruction technique. COMPARISON: 01/21/2025 FINDINGS: Lower Chest: There is dependent atelectasis. ABDOMEN: Liver: Within normal limits. Bile Ducts: Normal caliber. Gallbladder: Previously removed Pancreas: Within normal limits. Spleen: Within normal limits. Adrenals: Within normal limits. Kidneys: Multiple nonobstructing renal stones are noted on the left measuring up to 5 mm in greatest dimension. There is a 9 mm stone at the inferior pole of the right renal collecting system. Pelvis: Reproductive Organs: No pelvic masses. Ureters: Within normal limits. Bladder: Within normal limits. Bowel: Normal caliber. There is a normal appendix in the right lower quadrant. Mesenteric Lymph Nodes: No enlarged mesenteric lymph nodes. Peritoneum: No ascites or free air, no fluid collection. Vessels: within normal limits Retroperitoneum: Within normal limits. Abdominal Wall: There is a fat-containing periumbilical hernia. Bones: Within normal limits. CT/CT abdomen pelvis wo con IMPRESSION: No bowel obstruction or obstructive uropathy. Nonobstructing renal stones are present bilaterally. Additional chronic appearing findings are noted as above. Impression dictated by: Enrique Conley M.D. 05/05/2025 9:15 PM Dictation Location: [place] [address] Electronically authenticated by: [id number] Y Date: 05/05/2025 21:15 Dictated By: Enrique Conley M.D. Signed By: 05/05/252117 DD/ 14 TD/TT: Supervisory Examiner: [place] [address] CT Scan Report Signed Patient: RAMIN BARRIGA MR#: [id number] : 1990 Acct:[id number] Age/Sex: 34 / F ADM Date: 05/05/25 Loc: ER Attending Dr: Ordering Physician: Herman Hay D.O. Date of Service: 05/05/25 Procedure(s): CT abd omen pelvis wo con Accession Number(s): [id number] cc: Domingo Das M.D. [place] [address] Patient Name: DIANA BARRIGA MRN: [id number] date: 1990 Sex: F Assigned Patient Location: ER Current Patient Location: ER Accession/Order Numb er: [id number] Exam Date: 05/05/2025 21:09 Report Date: 05/05/2025 21:15 At the request of: HERMAN HAY Procedure: CT abdome n pelvis wo con CT abdomen pelvis wo con 05/05/2025 8:55 PM SIGNS AND SYMPTOMS: left flank pain, UTI, hx kidney stones TECHNIQUE: Multidete ctor ct axial images of the abdomen and pelvis were obtained without IV contrast. Multiplanar reformats were performed and reviewed to further define anatomy and possible pathology. CT was performed with one or more of the following dose reduction techniques: Automated exposure control, adjustment of the mA and/or kV according to patient size, or use of iterative reconstruction technique. COMPARISON: 01/21/2025 FINDINGS: Lower Chest: There i s dependent atelectasis. ABDOMEN: Liver: Within normal limits. Bile Ducts: Normal caliber. Gallbladder: Previou sly removed Pancreas: Within nor mal limits. Spleen: Within sari l limits. Adrenals: Within nor mal limits. Kidneys: Multiple nonobstructing renal stones are noted on the left measuring up to [address] dimension. There is a 9 mm stone at the inferior pole of the right renal collecting system. Pelvis: Reproductive Organs: No pelvic masses. Ureters: Within norm al limits. Bladder: Within norm al limits. Bowel: Normal calibe r. There is a normal appendix in the right lower quadrant. Mesenteric Lymph Nod es: No enlarged mesenteric lymph nodes. Peritoneum: No ascit es or free air, no fluid collection. Vessels: within norm al limits Retroperitoneum: Wit hin normal limits. Abdominal Wall: Ther e is a fat-containing periumbilical hernia. Bones: Within normal limits. C T/CT abdomen pelvis wo con IMPRESSION: No bowel obstruction or obstructive uropathy. Nonobstructing renal stones are present bilaterally. Additional chronic appearing findings are noted as above. Impression dictated by: Enrique Conley M.D. 05/05/2025 9:15 PM Dictation Location: [place] [address] Electronically authenticated by: [id number] Y Date: 05/05/2025 21:15 Dictated By: Enrique Conley M.D. Signed By: 05/05/252117 DD/ 14 TD/TT: Supervisory Examiner: Reason For Referral Diagnosis 1 Pyelonephritis (N12) Referral Organization [facility] Referring Provider First Name Kendrick Referring Provider Last Name alonso Referring Provider [facility] Referred Organization [facility] Referred Provider BREONNA SANCHEZ Referred Address [address] ,[facility] [address],[place], [place],[address], Referred Provider Specialty Urology Referral Priority Routine Diagnosis 1 Low back pain at [facility] (M54.50) Referral Organization [facility] Referring Provider First Name Kendrick Referring Provider Last Name Thiago Referring Provider [facility] Referred Provider [facility] Referred Provider Specialty Physical The rapist Referral Priority Routine Diagnosis 1 Arthralgia (M25.50) Referral Organization [facility] Referring Provider First Name Kendrick Referring Provider Last Name [facility] Referring Provider [facility] Referred Provider Keith Craig Referred Provider Specialty Rheumatology Referral Priority Routine Medications Medication SIG (Take, Route, Frequency, Duration) Notes Start Date End Date Status Promethazine HCl 25 MG 1 tablet as neede d Orally q6h for 5 days PRN 01/23/2025 Active tiZANidine HCl 4 MG 2 tabs Orally qhs fo r 30 days 03/15/2025 Active Meloxicam 15 MG 1 tablet Orally Once a day for 30 days 03/15/2025 Active Methenamine Hippurate 1 GM 1 tablet Oral ly Twice a day for 30 days 01/24/2025 Active Social History Tobacco Use: Social History [...] Problem Status W/U Status Risk Notes Problem 08242931 Essential (primary) hypertension (I10) Active confirmed Problem 983300969 Gastritis and duodenitis (535.50) Active confirmed Problem 615970159 Bipolar disorder , unspecified (F31.9) Active confirmed Problem Hypomagnesemia (097719373) Hypomagnesemia (E83.42) Active confirmed Problem 66643057 Anxiety disorder , unspecified (F41.9) Active confirmed Problem 090467905 Insomnia, unspecified (G47.00) Active confirmed Problem 11857744 Other chronic pa in (G89.29) Active confirmed Problem Streptococcal pharyngitis (09001713) Streptococcal pharyngitis (J02.0) Active confirmed Problem 645380783 Calculus of kidn ey (N20.0) Active confirmed Problem Sprain of calcaneofibular ligament (14998775) Sprain of calcaneofibular ligament of left ankle, initial encounter (S93.412A) Active confirmed Problem Gastroesophageal reflux disease (528208168) GERD (gastroesophageal reflux disease) (K21.9) Active confirmed Problem Lumbar radiculopathy (198387360) Lumbar radiculopathy (M54.16) Active confirmed Problem Arthralgia (37594390) Arthralgia (M25.50) Active confirmed Problem Kidney stone (50584643) Kidney stones (N20.0) Active confirmed Problem Nephrolithiasis (11411299) Nephrolithiasis (N20.0) Active confirmed Problem Gastritis (0865852) Gastritis (K29.70) Active c onfirmed Problem Well adult (167041169) Well adult (Z00.00) Active confirmed Problem Lesion of ulnar nerve (593406071) Ulnar nerve compression, right (G56.21) Active confirmed Problem Pyelonephritis (38316858) Pyelonephritis (N12) Active confirmed Problem Muscle spasm (84234590) Muscle spasm (M62.838) Active confirmed Problem Overweight (356070913) Over weight (E66.3) Active confirmed Problem Lesion of ulnar nerve (676496948) Ulnar nerve compression, left (G56.22) Active confirmed Problem Entrapment of left ulnar nerve (762430218831621) Entrapment of left ulnar nerve (G56.22) Active confirmed Problem Superficial thrombophlebitis (9200716) Superficial thrombophlebitis (I80.9) Active confirmed Problem Change of urinary catheter bag (procedure) (891235262) Catheter (urine) change required (Z46.6) Active confirmed Problem Mass of scalp (592259366) Mass of scalp (R22.0) Active confirmed Problem Lesion of ulnar nerve (726111646) Impingement of right ulnar nerve (G56.21) Active confirmed Problem Acute urinary tract infection (382540627) Acute UTI (N39.0) Active confirmed Problem Kidney stone (60207553) Kidney stone on right side (N20.0) Active confirmed Problem Retroflexion of uterus (51650550) Retroflexion of uterus (N85.4) Active confirmed Problem Disorder of kidney and/or ureter (100399465) Abnormal position of kidney (N28.89) Active confirmed Problem 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) Obstruction of ureter, 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 Problem Kidney stone (35409930) Altered urinary elimination pattern due to calculus of kidney (N20.0) Active confirmed Problem Muscle pain (10982218) Myalgia, unspecified site (M79.10) Active confirmed Problem Vesicoureteric reflux (disorder) (971851882) VUR (vesicoureteric reflux) (N13.70) Active confirmed Problem 35009649 Depression, unspecified (F32.A) Active confirmed Problem 698457839 Low back pain, unspecified (M54.50) Active confirmed Vital Signs Temperature 98.4 degrees Fahrenheit 06/29/2024 Blood pressure diastolic 88 mm Hg 05/23/2025 Height 66 in 05/23/2025 Blood pressure systolic 140 mm Hg 05/23/2025 Weight 187.4 lbs 05/23/2025 BMI 30.24 kg/m2 05/23/2025 Procedures Procedure Date Ordered Date Performed Result Body Sit e Voiding Cystourethrogram 01/05/2025 01/09/2025 N/A ESWL 01/24/2025 01/24/2025 N/A Ureteral Laser Lithotripsy 01/24/2025 01/24/2025 N/A Encounters Encounter Location Date Provider Diagnosis Urology [address] [place] [address] 01/26/2025 Breonna Sanchez Urology [address] [place] [address] 03/16/2025 Breonna Sanchez Urinary tract infect ion, site not specified N39.0 [facility] [address] [place] [address] 03/28/2025 Kendrick Hoy Low back pain at multiple sites M54.50 [facility] [address] [place] [address] 05/06/2025 Kendrick alonso [facility] [address] [place] [address] 05/08/2025 Kendrick Das [facility] [address] [place] [address] 09/07/2024 Kendrick Hoy Pyelonephritis N12 a nd Kidney stones N20.0 [facility] [address] [place] [address] 09/08/2024 Kendrick alonso [facility] [address] [place] [address] 10/03/2024 Kendrick Joséy Urology [address] [place] [address] 01/05/2025 Breonna Sanchez VUR (vesicoureteric reflux) N13.70 [facility] [address] [facility] [place] [address] 01/23/2025 Kendrick Joséalonso [facility] [address] [facility] [place] [address] 01/24/2025 Kendrick Thiago [facility] [address] [facility] [place] [address] 06/29/2024 Kendrick Thiago [facility] [address] [facility] [place] [address] 07/28/2024 Kendrick Das [facility] [address] [facility] [place] [address] 07/29/2024 Kendrick Thiago [facility] [address] [facility] [place] [address] 05/23/2025 Kendrick Das Arthralgia M25.50 [facility] [address] [facility] [place] [address] 06/29/2024 Kendrick Das Acute non-recurrent sinusitis, unspecified location J01.90 and Nasal congestion R09.[address] [place] [address] 03/23/2025 Kendrick Das Lumbar radiculopathy M54.[address] [place] [address] 09/07/2024 Kendrick Das Well adult Z00.00 ; Hypomagnesemia E83.42 ; GERD (gastroesophageal reflux disease) K21.9 and Kidney stones N20.0 [place] [address] [facility] [place] [address] 10/06/2024 Kendrick Das Acute UTI N39.[address] [place] [address] 12/01/2024 Kendrick Das Acute UTI N39.0 ; UT I (urinary tract infection), uncomplicated N39.0 and Dysuria R30.[address] [address] 02/01/2025 Kendrick Hoy Kidney stones N20.[address] [address] 03/15/2025 Kendrick Hoy Essential (primary) hypertension I10 and Low back pain, unspecified M54.[address] [address] 01/24/2025 Breonna Sanchez VUR (vesicoureteric reflux) N13.70 ; Kidney stones N20.0 and UTI (urinary tract infection), uncomplicated N39.[address] [address] 03/16/2025 Breonna Sanchez Dysuria R30.0 and UT I (urinary tract infection), uncomplicated N39.[address] [address] 11/24/2024 Breonna Sanchez Acute UTI N39.0 ; Ki dney stones N20.0 ; Pyelonephritis N12 and VUR (vesicoureteric reflux) N13.[address] [address] 07/28/2024 Kendrick Hoy Myalgia, unspecified site M79.10 ; Low back pain, unspecified M54.50 and Muscle spasm M62.[address] [address] 09/30/2024 Kendrick Hoy Kidney stones N20.0 and Pyelonephritis N12 Assessments Encounter Date Diagnosis (ICD Code) Assessment Notes Treatment Notes Treatment Clinical Notes Section Notes 09/07/2024 Well adult (ICD-10 - Z00.00) 09/07/2024 Hypomagnesemia (ICD-10 - E83.42) 06/29/2024 Acute non-recurrent sinusitis, unspecified location (ICD-10 - J01.90) Rest and drink more liquids, especially water. You may use a humidifier or vaporizer to help keep the drainage moist. Zkba-xoi-teolflo Nasal Saline may help the stuffy and runny nose. Use Ibuprofen and or Tylenol as needed for fever, chills, body aches or pain. Children 5 years old should not be given enyb-ewa-mseyxhp cough and cold medications such as guaifenesin and dextromethorphan. If you're over age 5, you may try zgtm-oez-wpgdgez cold medications such as guaifenesin and dextromethorphan, [...] until they are finished. You can use mibj-uax-khmbzcg acetaminophen or ibuprofen if needed for pain. [...] M54.50) 03/23/2025 Lumbar radiculopathy (ICD-10 - M54.16) 05/23/2025 Arthralgia (ICD-10 - M25.50) 09/07/2024 Pyelonephritis (ICD-10 - N12) 09/07/2024 Kidney [...] N20.0) 06/29/2024 Nasal congestion (ICD-10 - R09.81) 09/07/2024 GERD (gastroesophageal reflux disease) (ICD-10 - K21.9) 09/07/2024 Kidney stones (ICD-10 - N20.0) 11/24/2024 Pyelonephritis (ICD-10 - N12) 11/24/2024 VUR (vesicoureteric reflux) (ICD-10 - N13.70) 09/30/2024 Other sending over fo r icv [...] NUC MED Renal Flow with Lasix 11/24/2024 RHEUMATOID PANEL 05/23/2025 Insulin Level 09/16/2023 CBC AUTO DIFF 05/23/2025 Covid-19 PCR (CVDTBH) 06/29/2024 PROF 14(COMP METB) 05/23/2025 SED RATE WESTERGREN 05/23/2025 SED RATE WESTERGREN 09/07/2024 VIT B12 AND FOLATE 07/28/2024 MRI LSPINE WO CON 03/23/2025 XR HIP LT 2 3V W PELVIS 07/28/2024 XR LSPINE MIN 4 VIEWS 03/23/2025 XR LSPINE MIN 4 VIEWS 07/28/2024 THYROID PANEL (T4/TSH/FREE T3) THYROID PANEL (T4/TSH/FREE T3) 3 XR HIP RT 2 3V W PELVIS 07/28/2024 Next Appt Details Provider Name:Kendrick Ryan Arnavalonso, 10:00:00 AM, [address] [facility], [place], [address], Insurance Providers Payer Name Payer Address Payer Phone Subscriber Number Group Number Insured Name Patient Relationship to Insured Coverage Start Date Coverage End Date [employer] [address] [place] [address] [id number] Wesly Barriga Spouse - patient is the [...] G56.22 Depression Anxiety Surgical History Surgery Date(Month/Year) urethral dilation Hysterectomy, Bilat Salpingectomy- Bernie 05/06/23 Cystoscopy, Left retrograde pyelogram, u reteral stent- Dr. Souza's Right Renal Calculus 05/24/2020 Cholecystectomy Cystoscopy, Holmium Laser Li thotripsy, Lt stent replacement, Rt stent placement- Dr Desai 01/27/25 ureteral stent placement on Left side 01/22/25 Right laser lithotripsy - Dr Villa 12/08 21 Hospitalization History Reason Date(Month/Year) Multiple for kidney stones and stents
--- OUTSIDE RECORDS SUMMARY | 2025-05-24 12:15 | XMS_ITS | Encounter Summary ---
Author Organization [facility] Address [address] [place] [address] Care Team Providers Care Varnish Cooker Name Role Phone Ignacio Das MD Primary Care Provider [phone] Encounter Details Date Type Department Care Team (Late Contact Info) Description 04/18/2025 Orders Only [facility] [address] [place] [address] Tana Shell LPN [address] [employer] [place] [address] [place] [address] Social History Tobacco Use Types Packs/Day Years [...] [address] [place] [phone] Alejandra Leiva MD [address] [place] [address] 04/09/2026 9:00 AM EDT Office Visit [facility] [address] [place] [address] Jefferson Gibbs DO [address] [place] [address] documented as of this encounter Procedures Procedure Name Priority Date/Time Associated Diagnosis Comments PAP SMEAR Routine 04/05/2025 12:00 AM EDT documented in this encounter Results * (ABNORMAL) Pap Smear (04/05/2025 12:00 AM EDT) Swab Cervical swab / Unknown us Bernie Nurse [facility] LAB CYTOLOGY ORDERABLES Final Result EXTERNAL LAB documented in this encounter Visit Diagnoses Not on filedocumented in this encounter Care Teams Varnish Cooker Relationship Specialty Start Date End Date Ignacio Das MD [address] [place] [address] PCP - General Family Medicine 04/13/23 documented as of this encounter
--- OUTSIDE RECORDS SUMMARY | 2025-05-24 12:15 | XMS_ITS | Encounter Summary ---
Author Organization [facility] Address [address] [facility] [place] [address] Care Team Providers Care Audio Tape Librarian Name Role Phone Ignacio Das MD Primary Care Provider [phone] Encounter Details Date Type Department Care Team (Latest Contact Info) Description 05/15/2025 Travel Social History Tobacco Use Types Packs/Day [...] Office Visit [facility] [address] [facility] [address] [place] [address] Alejandra Leiva MD [address] [facility] [address] [place] [address] 04/09/2026 9:00 AM EDT Office Visit [facility] [place] OBRACHEL [address] [facility] [place] [address] Jefferson Gibbs DO [address] [facility] [address] [place], [place] [address] documented as of this encounter Visit Diagnoses Not on filedocumented in this encounter Care Teams Audio Tape Librarian Relationship Specialty Start Date End Date Ignacio Das MD [address] [place] [address] PCP - General Family Medicine 04/13/23 documented as of this encounter
--- OUTSIDE RECORDS SUMMARY | 2025-05-24 12:16 | XMS_ITS | Encounter Summary ---
Author Organization [facility] tem Address [id number] [address] [place] [address] Care Team Providers Care Cigar Packer Name Role Phone Ignacio Das MD Primary Care Provider [phone] Encounter Details Date Type Department Care Team (Late st Contact Info) Description 07/26/2020 Orders Only Maternal- Medicine at [facility] [address] [place] [address] External, Scanning Provider Social History Tobacco Use [...] on filedocumented in this encounter Care Teams Cigar Packer Relationship Specialty Start Date End Date Ignacio Das MD PCP - General Family Medicine 09/17/20 documented as of this encounter
--- OUTSIDE RECORDS SUMMARY | 2025-05-24 12:16 | XMS_ITS | Encounter Summary ---
Author Organization [facility] Address [address] [place] [address] Care Team Providers Care Machine Candle Molder Name Role Phone Ignacio Das MD Primary Care Provider [phone] Encounter Details Date Type Department Care Team ([facility] Contact Info) Description 05/06/2023 Abstract [facility] [address] [facility] [place] [address] Jefferson Gibbs DO [address] [facility] [address] [place], [place] [address] Social History Tobacco Use Types Packs/Day Years [...] Upcoming Encounters Date Type Department Care Team ([facility] Contact Info) Description 05/29/2025 2:45 PM EDT Office Visit [facility] [address] [place] [address] Alejandra Leiva MD [address] [place], [place] [address] 04/09/2026 9:00 AM EDT Office Visit [facility] [address] [employer] [place] [address] Jefferson Gibbs, [address] [place] [address] documented as of this encounter Visit Diagnoses Not on filedocumented in this encounter Care Teams Machine Candle Molder Relationship Specialty Start Date End Date Ignacio Das MD [address] [facility] [place] [address] PCP - General Family Medicine 04/13/23 documented as of this encounter
--- OUTSIDE RECORDS SUMMARY | 2025-05-24 12:16 | XMS_ITS | Patient Health Record ---
Author Organization [facility] es Address [address] [place] [address] Care Team Providers Care Vegetable Cook Name Role Phone Iván Puckett Primary Care Provider Reason For Referral No Information Plan Of Treatment No Information Insurance Providers Payer Name Payer Address Payer Phone Subscriber Number Group Number Insured Name Patient Relationship to Insured Coverage Start Date Coverage End Date [employer] [place] [employer] [address] [address] [place] [address] [id number] CORI BARRIGA Self - patient is the insured 3 [employer] [facility] [place] [address] [place] [address] [phone] [id number] CORI BARRIGA Self - patient is the insured 3
--- OUTSIDE RECORDS SUMMARY | 2025-05-24 12:16 | XMS_ITS | Encounter Summary ---
Author Organization [facility] [employer] [facility] tem Address [id number] [address] [place] [address] Care Team Providers Care Dining Car Waiter/Waitress Name Role Phone Ignacio Das MD Primary Care Provider [phone] Encounter Details Date Type Department Care Team (Late st Contact Info) Description 07/26/2020 Abstract Maternal- Medicine at [facility] [address] [place] [address] Billy Cazares MD [address] [facility], [address] [place], [place] [phone] Social History Tobacco Use Types Packs/Day Years [...] on filedocumented in this encounter Care Teams Dining Car Waiter/Waitress Relationship Specialty Start Date End Date Ignacio Das MD PCP - General Family Medicine 09/17/20 documented as of this encounter
--- OUTSIDE RECORDS SUMMARY | 2025-05-24 12:16 | XMS_ITS | Encounter Summary ---
Author Organization [facility] Address [address] [place] [address] Care Team Providers Care Tissue Inserter Name Role Phone Ignacio Das MD Primary Care Provider [phone] Encounter Details Date Type Department Care Team ([facility] Contact Info) Description 04/30/2023 Abstract [facility] [address] [place] [address] Jefferson Gibbs DO [address] [facility] [address] [place], [place] [address] Social History Tobacco Use Types Packs/Day Years [...] Upcoming Encounters Date Type Department Care Team ([facility] Contact Info) Description 05/29/2025 2:45 PM EDT Office Visit [facility] [address] [place] [address] Alejandra Leiva MD [address] [place], [place] [address] 04/09/2026 9:00 AM EDT Office Visit [facility] [address] [place] [address] Jefferson Gibbs, [address] [place] [address] documented as of this encounter Visit Diagnoses Not on filedocumented in this encounter Care Teams Tissue Inserter Relationship Specialty Start Date End Date Ignacio Das MD [address] [facility] [place] [address] PCP - General Family Medicine 04/13/23 documented as of this encounter
--- OUTSIDE RECORDS SUMMARY | 2025-05-24 12:16 | XMS_ITS | Clinical Summary ---
Author Organization [employer] tem Address [facility][id number] [address] [place] [address] Care Team Providers Care Derrick Builder Name Role Phone Ignacio Das MD Primary Care Provider [phone] Allergies No known active allergies Medications prenat.vits,rodger,min [...] Narrative COPATH - 02/03/2018 12:11 PM EDT [facility] [address] [place] [address] Gynecologic Cytology Consultation Patient Name: DIANA NEAMORADO : 1990 (Age: 27) Gender: F Taken: 01/22/2018 Reported: 02/03/2018 Physician(s): Yuniel Rosenberg MD [phone]) Copy To: Med. Rec. #: [id number] Acct: # [id number] Final Cytologic Interpretation Cervical (with or without endocervical) ThinPrep: Satisfactory for evaluation. A transformation zone component is present. NEGATIVE FOR INTRAEPITHELIAL LESION OR MALIGNANCY. Shift in greg suggestive of bacterial vaginosis. jja/02/03/2018 Electronically Signed Out By CARON Galeano (ASCP) Date of Last Menstrual Period: 12/25/2017 Other Clinical Conditions: Screening/Routine z01.419 Instructor Watch Assembly exam wo/abn findings Source of Specimen Cervical (with or without endocervical) ThinPrep Thin Prep Pap (TYPE CASTING MACHINE OPERATOR) Fee Code(s): G0145 The Pap test is a screening test with an inherent, but low, probability of error. The Pap test is primarily effective for the diagnosis and prevention of squamous cell carcinoma. Regular screening is critical for prevention. ThinPrep liquid-based slides, which meet the Japanese Professor criteria for automated screening, have been screened by the ThinPrep Imaging System (as of 07/05/07) along with an additional manual rescreening by a settlement agent and, if indicated, by a pathologist.Yuniel Rosenberg, [...] 9:20 AM 08/14/2018 4:36 PM Care Teams Derrick Builder Relationship Specialty Start Date End Date Ignacio Das MD PCP - General Family Medicine 09/17/20
--- OUTSIDE RECORDS SUMMARY | 2025-05-24 12:16 | XMS_ITS | Encounter Summary ---
Author Organization [facility] Address [address] [place] [address] Care Team Providers Care Geochemical Manager Name Role Phone Ignacio Das MD Primary Care Provider [phone] Encounter Details Date Type Department Care Team (Late Contact Info) Description 05/15/2023 Abstract [facility] [place] [facility] [address] [facility] [address] Tamiko Chacon PA [address] [facility] [address] [place], [place] [address] Social History Tobacco Use Types Packs/Day Years [...] Dermatology [address] [place] [address] Alejandra Leiva MD [address] [place] [address] 04/09/2026 9:00 AM EDT Office Visit [facility] [address] [facility] [place] [address] Jefferson Gibbs DO [address] [facility] [place] [address] documented as of this encounter Visit Diagnoses Not on filedocumented in this encounter Care Teams Geochemical Manager Relationship Specialty Start Date End Date Ignacio Das MD [address] [facility] [place] [address] PCP - General Family Medicine 04/13/23 documented as of this encounter
--- OUTSIDE RECORDS SUMMARY | 2025-05-24 12:16 | XMS_ITS | Encounter Summary ---
Author Organization [facility] Address [address] [place] [address] Care Team Providers Care Shredder/Granulator Operator Name Role Phone Ignacio Das MD Primary Care Provider [phone] Encounter Details Date Type Department Care Team ([facility] Contact Info) Description 04/30/2023 Abstract [facility] [address] [facility] [place] [address] Jefferson Gibbs DO [address] [facility] [address] [place], [place] [address] Social History Tobacco Use Types Packs/Day Years [...] Upcoming Encounters Date Type Department Care Team ([facility] Contact Info) Description 05/29/2025 2:45 PM EDT Office Visit [facility] [address] [place] [address] Alejandra Leiva MD [address] [place], [place] [phone] 04/09/2026 9:00 AM EDT Office Visit [place] [facility] [address] [place] [address] Jefferson Gibbs, [address] [place] [address] documented as of this encounter Visit Diagnoses Not on filedocumented in this encounter Care Teams Shredder/Granulator Operator Relationship Specialty Start Date End Date Ignacio Das MD [address] [facility] [place] [address] PCP - General Family Medicine 04/13/23 documented as of this encounter
--- NOTE | 2025-05-24 12:17 | MR_ITS ---
The [address] [address] Patient Name: CORI BARRIGA MRN: [id number] date: 1990 Sex: F Assigned Patient Location: MRI Current Patient Location: MRI Accession/Order Number: [id number] Exam Date: 05/24/2025 15:59 Report Date: 05/24/2025 16:09 At the request of: DOMINGO SNYDER MD Procedure: MR lumbar spine wo con MRI lumbar spine performed without contrast INDICATION: Lumbar radiculopathy COMPARISON: X-rays lumbar spine 03/28/2025 FINDINGS: Lumbar vertebral heights, alignment and bone marrow signal is unremarkable. There is mild intervertebral space narrowing L4-5. Conus medullaris terminates normally at superior plate of L1. Paraspinal soft tissues are unremarkable. T12-L3: No significant disease, disc protrusion, central canal or neural from narrowing. L3-4: Mild facet arthropathy. This causes mild right neural foraminal narrowing. Otherwise, no significant disc disease, disc protrusion central canal or left neural foraminal narrowing L4-5: Circumferential disc bulge with transverse band of T2 hyperintense suggestive of focal fissure. There is moderate severe facet arthropathy. Qfix-ya-gotuejby right neural foraminal narrowing and mild left neural foraminal narrowing. Canal is patent. L5-S1: Mild to moderate facet arthropathy. Otherwise no significant disease central canal or neural foraminal narrowing. MR/MR lumbar spine wo con IMPRESSION: Overall mild degenerative changes notably L4-5 predominantly caused by posterior element degenerative changes level. Please see body report for level by level details. Impression dictated by: Jaime Mcintyre M.D. 05/24/2025 4:09 PM Dictation Location: [place] [address] Electronically authenticated by: [id number] Y Date: 05/24/2025 16:09
[2025-05-24 13:59] LABS: Hematocrit 42.0 % (36.0-48.0); Hemoglobin 14.1 g/dL (12.0-16.0); Immature Granulocytes Abs Auto 0.00 10^3/uL (0.00-0.03); Immature Granulocytes Pct Auto 0.0 % (0.0-0.5); Lymphocytes Absolute Auto 2.9 10^3/uL (1.2-3.8); Mean Corpuscular HGB Conc 33.6 g/dL (29.9-35.2); Mean Corpuscular Hemoglobin 28.7 pg (26.7-34.0); Mean Corpuscular Volume 85.4 fL (81.0-99.0); Platelet Count 309 10^3/uL (150-450); Red Blood Count 4.92 10^6/uL (4.20-5.40); White Blood Count 7.0 10^3/uL (4.0-11.0)
[2025-05-24 15:34] LABS: Alanine Aminotransferase 45 U/L (14-59); Albumin Globulin Ratio 1.1; Albumin Level 4.4 g/dL (3.4-5.0); Alkaline Phosphatase 78 U/L (46-116); Anion Gap 9.2; Aspartate Amino Transferase 24 U/L (15-37); Blood Urea Nitrogen 12.0 mg/dL (7.0-18.0); Calcium 9.6 mg/dL (8.5-10.1); Carbon Dioxide 31.2 mmol/L (21.0-32.0); Chloride 105 mmol/L (98-107); Estimated GFR (African America >60 (>=60 mL/min/1.73m^2); Estimated GFR (Non-African Ame >60 (>=60 mL/min/1.73m^2); Globulin 3.9 g/dL; Glucose 85 mg/dL (74-106); Potassium 3.4 mmol/L (3.5-5.1); Sodium 142 mmol/L (136-145); Total Protein 8.3 g/dL (6.4-8.2); Uric Acid 4.8 mg/dL (2.6-6.0)
[2025-05-26 18:08] LABS: Antinuclear Antibodies, IFA Negative (.)
== END 2025-05-24 12:13 | disposition home or self-care (01) ==
LOC: MRI 12:12
PROVIDERS: PCP Family Medicine; Visit Provider Family Medicine
DX: M54.16 Radiculopathy, lumbar region (principal); M25.50 Pain in unspecified joint; M51.369 Other intervertebral disc degeneration, lumbar region without mention of lumbar back pain or lower extremity pain
CPT/HCPCS: 36415; 72148; 80053; 84550; 85025; 85652; 86038; 86060; 86140; 86431

== ENCOUNTER 2025-06-19 00:30 | Emergency (ER) | payer OTHER, SELFPAY ==
--- OUTSIDE RECORDS SUMMARY | 2024-05-09 04:30 | XMS_ITS ---
Author Organization [facility] Serv es Address [address] [place] [address] Care Team Providers Care Mercerizing Range Feeder Name Role Phone Iván Puckett Primary Care Provider [phone] Dulce Maria Grey Unavailable [phone] REASON FOR VISIT PROPHY Encounters Encounter Location Date Provider Diagnosis [place] [address] [place] [address] 05/09/2024 Dulce Maria Matthews Plan Of Treatment No Information Progress Notes * CORI BARRIGA LDOB: [birth year] (34 yo F)Acc No.[id number]:05/09/2024 Patient: Connor QUIROZ CORI Hyman Provider: Ladonna Baugh :1990 A ge:33 Y S ex:Female Date:05/09/2024 [facility] [facility] Pcp:Iván Puckett Subjective: * Chief Complaints: * 1 . PROPHY. * Medical History: Objective: * Vitals: Assessment: Plan: * Treatment: * Images: * Electronic signature of Karissa Matthews on 06/19/2025 at 12:37 AM EDT Sign off status: Pending * Provider: Ladonna Baugh Date: 05/09/2024 Generated for Printi ng/Faxing/eTransmitting on: 0 06/19/2025 12:37 AM EDT
--- OUTSIDE RECORDS SUMMARY | 2025-05-23 05:15 | XMS_ITS ---
Author Organization [facility] [place] Address [address] [place] [address] Care Team Providers Care Accelerator Technician Name Role Phone Kendrick Das Primary Care Provider Allergies No Known Allergies Results Component Value Reference Range Notes CBC AUTO DIFF Reviewed date:05/24/2025 02:35:47 PM Interpretation: Performing Lab: Notes/Report: [facility] , White Blood Count 7.0 4.0-11.0 10 3/uL Red Blood Count 4.92 4.20-5.40 10 6/uL Hemoglobin 14.1 12.0-16.0 g/dL Hematocrit 42.0 36.0-48.0 % Mean Corpuscular Volume 85.4 81.0-99.0 fL Mean Corpuscular Hemoglobin 28.7 26.7-34.0 pg Mean Corpuscular HGB Conc 33.6 29.9-35.2 g/dL Red Cell Distribution Width 12.5 11.0-15.0 % Platelet Count 309 150-450 10 3/uL Mean Platelet Volume 9.3 9.5-13.5 fL Neutrophils Percent Auto 50.6 43.0-75.0 % Lymphocytes Percent Auto 40.7 20.5-60.0 % Monocytes Percent Auto 7.4 1.7-12.0 % Eosinophils Percent Auto 0.6 0.9-7.0 % Basophils Percent Auto 0.7 0.2-2.0 % Immature Granulocytes Pct Auto 0.0 0.0-0.5 % Neutrophils Absolute Auto 3.6 1.4-6.5 10 3/uL Lymphocytes Absolute Auto 2.9 1.2-3.8 10 3/uL Monocytes Absolute Auto 0.5 0.3-0.8 10 3/uL Eosinophils Absolute Auto 0.0 0.0-0.7 10 3/uL Basophils Absolute Auto 0.1 0.0-0.1 10 3/uL Immature Granulocytes Abs Auto 0.00 0.00-0.03 10 3/uL Performing Lab: see note ML - [facility] PROF 14(COMP METB) Reviewed date:05/24/2025 05:16:43 PM Interpretation: Performing Lab: Notes/Report: [facility] , Sodium 142 136-145 mmol/L Potassium 3.4 3.5-5.1 mmol/L Chloride 105 98-107 mmol/L Carbon Dioxide 31.2 21.0-32.0 mmol/L Anion Gap 9.2 Glucose 85 74-106 mg/dL Blood Urea Nitrogen 12.0 7.0-18.0 mg/dL Creatinine 0.79 0.55-1.02 mg/dL Estimated GFR ( Kyung >60 >=60 mL/mi n/1.73m 2 Estimated GFR (Non- Shefali >60 >=60 mL/mi n/1.73m 2 BUN Creatinine Ratio 15.2 Calcium 9.6 8.5-10.1 mg/dL Bilirubin Total 0.6 0.2-1.0 mg/dL Aspartate Amino Transferase 24 15-37 U/L Alanine Aminotransferase 45 14-59 U/L Alkaline Phosphatase 78 46-116 U/L Total Protein 8.3 6.4-8.2 g/dL Albumin Level 4.4 3.4-5.0 g/dL Globulin 3.9 Albumin Globulin Ratio 1.1 Performing Lab: see note ML - [facility] LB Reason For Referral Diagnosis 1 Arthralgia (M25.50) Referral Organization [facility] Medicine Referring Provider First Name Kendrick Referring Provider Last Name Thiago Referring Provider Speciality Family [facility] andrew Referred Provider Keith Craig Referred Provider Specialty Rheumatology Referral Priority Routine REASON FOR VISIT Pain everywhere, shooting pains down legs and arms- numbness- felt sick for the last week- headaches, nausea, just completed Cipro for UTI Medications Medication SIG (Take, Route, Frequency, Duration) Notes Start Date End Date Status Promethazine HCl 25 MG 1 tablet as neede d Orally q6h for 5 days PRN 01/23/2025 Active tiZANidine HCl 4 MG 2 tabs Orally qhs fo r 30 days 03/15/2025 Active Methenamine Hippurate 1 GM 1 tablet Oral ly Twice a day for 30 days 01/24/2025 Active Meloxicam 15 MG 1 tablet Orally Once a day for 30 days 03/15/2025 Active Social History Tobacco Use: Social History Observation Description Date Details (start date - stop date) Never Smoker NA - NA Tobacco Use/Smoking Question Answer Notes Patient is a nonsmoker Problems Problem Type SNOMED Code ICD Code Onset Dates Problem Status W/U Status Risk Notes Problem Arthralgia (M25.50) Active confirmed Vital Signs Weight 187.4 lbs 05/23/2025 Height 66 in 05/23/2025 Blood pressure systolic 140 mm Hg 05/23/20 25 Blood pressure diastolic 88 mm Hg 025 BMI 30.24 kg/m2 05/23/2025 Encounters Encounter Location Date Provider Diagnosis [facility] [address] [place] [address] 05/23/2025 Kendrick Das Arthralgia M25.5 0 Assessments Encounter Date Diagnosis (ICD Code) Assessment Notes Treatment Notes Treatment Clinical Notes Section Notes 05/23/2025 Arthralgia (ICD-10 - M25.50) Plan Of Treatment Pending Test Test Name Order Date RHEUMATOID PANEL 05/23/2025 SED RATE WESTERGREN 05/23/2025 Referrals Referral Date Details 05/23/2025 05/23/2025, Keith Craig Next Appt Details Provider Name:Kendrick Connor Das, 10:00:00 AM, [address] [place], [address], Progress Notes * Diana BEAVER LDOB: [birth year] (34 yo F)Acc No.[id number]:05/23/2025 Progress Note Patient: Diana RATLIFF Provider: Walter Das ([facility])MD :1990 A ge:34 Y S ex:Female Date:05/23/2025 Address:[place], [id number] Check In:08:59 AM ESTCheck O ut:09:35 AM EST Subjective: * Chief Complaints: * P ain everywhere, shooting pains down legs and arms- numbness- felt sick for the last week- headaches, nauseajust completed Cipro for UTI * HPI: G eneral: gett some finger locking -. * ROS: E ENT: hearing changes d enies. v isual changes d enies.?non-healing mouth sores d enies. s wollen glands or neck lumps d enies. h oarseness d enies. s ore throat d enies. d ifficulty swallowing d enies. n ose bleeds d enies. n donald congestion d enies. e ar ache d enies. e ar discharge?denies. r inging in ears d enies. l ight sensitivity d enies. e ye pain d enies. b lurring d enies. e ye irritation d enies. d ouble vision d enies.?vision loss d enies. G eneral/Constitutional: Sweats: D enies. F atigue d enies. S leep problems d enies. A norexia d enies. M alaise d enies. W eight loss d enies.?Fatigue or Weakness d enies. F ever or Chills d enies. C ardiovascular: Shortness of Breath w/lying flat d enies. L ightheadedness/dizziness d enies. C hest tightness/ heavy pressure d enies. S welling of legs, ankles, or feet d enies. W aking up with shortness of breath d enies. C hest pain denies. P alpitations d enies. W eight gain d enies. R espiratory: Chronic or frequent cough d enies. C oughing up blood?denies. D ifficulty breathing d enies. P roductive cough d enies. S noring?denies. S hortness of breath that awakens from sleep (PND) d enies. C hest pain d enies. S putum production d enies. W heezing d enies. M usculoskeletal: Joint pain d enies. J oint Fluid d enies. B ack pain d enies. K nee pain d enies. N ameena pain d enies. J oint Stiffness d enies. M uscle cramps d enies. W eakness of muscles d enies. A rthritis d enies. M uscle aches d enies. P ain in shoulder(s) d enies. S wollen joints d enies. * Active Problem List J02.0 Streptococcal pharyn gitis Modified On:03/19/2023 Status:confirmed S93.412A Sprain of calcaneofi bular ligament of left ankle, initial encounter Modified On:03/19/2023 Status:confirmed N20.0 Kidney stones Modified On:03/19/2023 Status:confirmed Z00.00 Well adult Modified On:03/19/2023 Status:confirmed N12 Pyelonephritis Modified On:03/19/2023 Status:confirmed E66.3 [...] spasm Modified On:07/28/2024 Status:confirmed E83.42 Hypomagnesemia Modified On:09/07/2024 Status:confirmed K21.9 GERD (gastroesophage al reflux disease) Modified On:09/07/2024 Status:confirmed N39.0 Acute UTI Modified On:10/06/2024U Status:confirmed N13.70 VUR (vesicoureteric reflux) Modified On:11/24/2024 Status:confirmed M54.16 Lumbar radiculopathy Modified On:03/23/2025 Status:confirmed N20.0 Altered urinary elim ination pattern due to calculus of kidney Modified On:04/26/2025U Status:confirmed Z46.6 Catheter (urine) calderon nge required Modified On:04/26/2025 Status:confirmed N28.89 Abnormal position of kidney Modified On:07/09/2025W/U Status:confirmed M25.50 Arthralgia Modified On:05/23/2025W/U Status:confirmed * Medical History: * Surgical History: [...] Tablet 1 tablet Orally Twice a day Promethazine HCl 25 MG Tablet 1 tablet as needed Orally q6h , Notes to Pharmacist: PRNtiZANidine HCl 4 MG Tablet 2 tabs Orally qhs Taking Meloxicam 15 MG Tablet 1 tablet Orally Once a day Taking Methenamine Hippurate 1 GM Tablet 1 tablet Orally Twice a day Taking Promethazine HCl 25 MG Tablet 1 tablet as needed Orally q6h , Notes to Pharmacist: PRNTaking tiZANidine HCl 4 MG Tablet 2 tabs Orally qhs DiscontinuedNitrofurantoin Monohyd Macro 100 MG Capsule 1 capsule with food Orally every 12 hrs Ondansetron 4 MG Tablet Disintegrating 1 tablet on the tongue and allow to dissolve Orally qid , Notes to Pharmacist: PRNMedication List reviewed and reconciled with the patientDiscontinued Nitrofurantoin Monohyd Macro 100 MG Capsule 1 capsule with food Orally every 12 hrs Discontinued Ondansetron 4 MG Tablet Disintegrating 1 tablet on the tongue and allow to dissolve Orally qid , Notes to Pharmacist: PRNMedication List reviewed and reconciled with the patient * Allergies: N .K.D.A.no[Allergies Verified] Objective: * Vitals: W t:187.4lbs, Ht: 66 in, BP:140/88mm Hg, BMI:30.24Index, Ht-cm: 167.64 cm, Wt-k kg. * Examination: P hysical Exam: GENERAL: w ell developed, well nourished, in no acute distress. HEAD: n ormocephalic/atraumatic. EYES: p upils equal, round and reactive to light, conjunctivae and sclerae normal. EARS: n o deformity or lesion of external ear, canals and TM appear normal bilaterally, TM's intact, not inflamed with normal light reflex, hearing grossly normal to conversational speech. NOSE: n o deformity, discharge, inflammation, or lesions.? MOUTH: m ucous membranes moist, normal oropharynx and posterior pharynx without lesions or exudates, tongue normal, dentition normal. NECK: n ameena supple, no masses or palpable cervical nodes, trachea midline, thyroid without nodules, masses, tenderness, or enlargement. CHEST: n o chest wall deformity, no chest wall tenderness.? LUNGS: n ormal respiratory effort and clear to auscultation, no wheezes, rales, or rhonchi, good air exchange. CARDIO: r egular rate and rhythm, normal S1 and S2, nor murmur, rub, or gallop. PULSES: n ormal capillary refill. ABDOMEN: s oft, non-distended, non-tender, no masses. MUSCULOSKELETAL: n o deformity or scoliosis noted, normal range of motion, joints normal, no erythema, edema, effusion, or ecchymosis. EXTREMITY: n o clubbing, cyanosis, edema, or deformity with normal ROM in both upper and lower bilateral extremities. NEUROLOGIC: g rossly normal. SKIN: n o rashes, ulcerations, or suspicious lesions. LYMPH NODES: n o cervical adenopathy, nodes normal. MENTAL STATUS: a lert and oriented x3, normal mood and affect. Assessment: * Assessment: 1. A rthralgia - M25.50 (Primary) Plan: * Treatment: * Labs: * L ab: PROF 14(COMP METB) (Collection Date & Time - 05/24/2025 01:44 PM) L ab: CBC AUTO DIFF (Collection Date & Time - 05/24/2025 01:44 PM) * Procedure Codes: * Preventive Medicine: Screenings/Counseling: B NC ACTION PLAN Above Normal BMI Follow-up D ietary management education, guidance, and counseling * * Sign off status: Completed Visit Status: C HK (Check Out) true * Provider: Walter Das ([facility])MD Date: 0 05/23/2025 Generated for Printi ng/Fawendyg/eTransmitting on: 0 06/19/2025 12:37 AM EDT History and Physical Notes * HPI (History of Present Illness) Category Sub-Category Detail Notes Category Not es General gett some finge r locking - Examination Category Sub-Category Detail Notes Category Not es Physical Exam GENERAL: well developed, well nourished, in no acute distress HEAD: normocephalic/atraum atic EYES: pupils equal, round and reactive to light, conjunctivae and sclerae normal EARS: no deformity or lesi on of external ear, canals and TM appear normal bilaterally, TM's intact, not inflamed with normal light reflex, hearing grossly normal to conversational speech NOSE: no deformity, discha rge, inflammation, or lesions MOUTH: mucous membranes shawn st, normal oropharynx and posterior pharynx without lesions or exudates, tongue normal, dentition normal NECK: neck supple, no mass es or palpable cervical nodes, trachea midline, thyroid without nodules, masses, tenderness, or enlargement CHEST: no chest wall deform ity, no chest wall tenderness LUNGS: normal respiratory e ffort and clear to auscultation, no wheezes, rales, or rhonchi, good air exchange CARDIO: regular rate and rhy thm, normal S1 and S2, nor murmur, rub, or gallop PULSES: normal capillary ref ill ABDOMEN: soft, non-distended, non-tender, no masses RECTAL: MUSCULOSKELETAL: no deformity or scol iosis noted, normal range of motion, joints normal, no erythema, edema, effusion, or ecchymosis EXTREMITY: no clubbing, cyanosi s, edema, or deformity with normal ROM in both upper and lower bilateral extremities NEUROLOGIC: grossly normal SKIN: no rashes, ulceratio ns, or suspicious lesions LYMPH NODES: no cervical adenopat hy, nodes normal MENTAL STATUS: alert and oriented x 3, normal mood and affect Consultation Request Notes Referral Date Referring Provider Referred Provider Not es 05/23/2025 Kendrick Das Matthew
--- OUTSIDE RECORDS SUMMARY | 2025-05-24 13:16 | XMS_ITS ---
Author Organization The [facility] in [place] Address [address] [place] [address] Care Team Providers Care Support Dba Name Role Phone Kendrick Das Primary Care Provider REASON FOR VISIT review labs- Medications Medication SIG (Take, Route, Frequency, Duration) Notes Start Date End Date Status Potassium Chloride ER 10 MEQ 1 tablet with food Orally Twice a day for 30 days 05/25/2025 Active Encounters Encounter Location Date Provider [facility] [address] [place] [address] 05/24/2025 Kendrick Das Plan Of Treatment Medication Medication Name Sig Start Date Stop Date Notes Potassium Chloride ER 10 MEQ 1 tablet wi th food Orally Twice a day for 30 days 05/25/2025 Next Appt Details Provider Name:Kendrick Das, 10:00:00 AM, [address] [place], [address], Progress Notes * Diana BEAVER LDOB: 1 (34 yo F)Acc No.[id number]:05/24/2025 Patient: Diana RATLIFF :1990 A ge:34 Y S ex:Female Address:[address] [place] [address], [phone] * Refills Start Potassium Chloride ER Tablet Extended Release, 10 MEQ, Orally, 60, 1 tablet with food, Twice a day, 30 days, Refills=11 * true * Date: Generated for Meenakshi krishnan/Neisha/Trell on: 0 06/19/2025 12:37 AM EDT
--- OUTSIDE RECORDS SUMMARY | 2025-05-28 15:54 | XMS_ITS ---
Author Organization The [facility] in [place] Address [address] [place] [address] Care Team Providers Care Human Resource Management Instructor Name Role Phone ThiagoKendrick Primary Care Provider REASON FOR VISIT lab results- something for yeast Medications Medication SIG (Take, Route, Frequency, Duration) Notes Start Date End Date Status Amoxicillin 500 MG 2 capsule Orally BID for 30 days 30 days is correct 05/29/2025 Active Diflucan 100 MG 1 tablet Orally naif y for 10 days 05/29/2025 Active Encounters Encounter Location Date Provider Diagnosis [facility] [address] [place] [address] 05/28/2025 Kendrick Das Arthralgia M25.5 0 Assessments Encounter Date Diagnosis (ICD Code) Assessment Notes Treatment Notes Treatment Clinical Notes Section Notes 05/28/2025 Arthralgia (ICD-10 - M25.50) Plan Of Treatment Medication Medication Name Sig Start Date Stop Date Notes Amoxicillin 500 MG 2 capsule Orally BID for 30 days 05/29/2025 30 days is correct Diflucan 100 MG 1 tablet Orally naif y for 10 days 05/29/2025 Pending Test Test Name Order Date ANTI - DNASE B (STREPTOCOCCAL) ASO ([id number]), BLOOD 025 Next Appt Details Provider Name:Kendrick Das, 10:00:00 AM, [address] [place], [address], Progress Notes * NITHYA, Diana LDOB: 1 (34 yo F)Acc No.[id number]:05/28/2025 Patient: Diana RATLIFF :1990 A ge:34 Y S ex:Female Address:[address] [place] [address], [phone] * Refills Start Amoxicillin Capsule, 500 MG, Orally, 120 Capsule, 2 capsule, BID, 30 days, Refills=0 Start Diflucan Tablet, 100 MG, Orally, 10 Tablet, 1 tablet, daily, 10 days, Refills=1 Subjective: * Chief Complaints: * L ab results- something for yeast * Medical History: * Surgical History: * Hospitalization/Major Diagno stic Procedure: * Medications: Objective: * Vitals: * Physical Examination: Assessment: * Assessment: 1. A rthralgia - M25.50 (Primary) Plan: * Treatment: 2. O thers Start Amoxicillin Capsule, 500 MG, 2 capsule, Orally, BID, 30 days, 120 Capsule, Refills 0, Notes to Pharmacist: 30 days is correct; S tart Diflucan Tablet, 100 MG, 1 tablet, Orally, daily, 10 days, 10 Tablet, Refills 1. * Procedure Codes: * true * Date: Generated for Meenakshi krishnan/Neisha/Lindasmitting on: 0 06/19/2025 12:36 AM EDT
--- OUTSIDE RECORDS SUMMARY | 2025-06-07 10:30 | XMS_ITS ---
Author Organization The [facility] in [place] Address [address] [place] [address] Care Team Providers Care Business Banking Sales Assistant Name Role Phone Kendrick Das Primary Care Provider Allergies No Known Allergies REASON FOR VISIT procedure infection Medications Medication SIG (Take, Route, Frequency, Duration) Notes Start Date End Date Status Potassium Chloride ER 10 MEQ 1 tablet with food Orally Twice a day for 30 days 05/25/2025 Active Promethazine HCl 25 MG 1 tablet as neede d Orally q6h for 5 days PRN 01/23/2025 Active tiZANidine HCl 4 MG 2 tabs Orally qhs fo r 30 days 03/15/2025 Active Doxycycline Monohydrate 100 MG 1 tablet Orally bid for 10 days 06/07/2025 Active Mupirocin 2 % 1 application Computational Theory Scientist ally Twice a day for 5 days 06/07/2025 Active Meloxicam 15 MG 1 tablet Orally Once a day for 30 days 03/15/2025 Active Methenamine Hippurate 1 GM 1 tablet Oral ly Twice a day for 30 days 01/24/2025 Active Social History Tobacco Use: Social History Observation Description Date Details (start date - stop date) Never Smoker NA - NA Tobacco Use/Smoking Question Answer Notes Patient is a nonsmoker Section Notes: . Problems Problem Type SNOMED Code ICD Code Onset Dates Problem Status W/U Status Risk Notes Problem Cellulitis (604451546) Cellulitis (L03.90) Active confirmed Vital Signs Weight 185 lbs 06/07/2025 Height 66 in 06/07/2025 Blood pressure systolic 118 mm Hg 06/07/20 25 Blood pressure diastolic 82 mm Hg 025 BMI 29.86 kg/m2 06/07/2025 Encounters Encounter Location Date Provider Diagnosis [facility] [address] [place] [address] 06/07/2025 Kendrick Das Cellulitis L03.9 0 Assessments Encounter Date Diagnosis (ICD Code) Assessment Notes Treatment Notes Treatment Clinical Notes Section Notes 06/07/2025 Cellulitis (ICD-10 - L03.90) Plan Of Treatment Medication Medication Name Sig Start Date Stop Date Notes Doxycycline Monohydrate 100 MG 1 tablet Orally bid for 10 days 06/07/2025 Mupirocin 2 % 1 application Computational Theory Scientist ally Twice a day for 5 days 06/07/2025 Next Appt Details Provider Name:Kendrick Dsa, 10:00:00 AM, [address] [place], [address], Progress Notes * Diana BEAVER LDOB: 1 (34 yo F)Acc No.[id number]:06/07/2025 Progress Note Patient: Diana RATLIFF L Provider: Walter Das ([facility])MD :1990 A ge:34 Y S ex:Female Date:06/07/2025 Address:[address] [place], [place] [id number] Check In:02:15 PM ESTCheck O ut:03:02 PM EST Subjective: * Chief Complaints: * P rocedure infection * HPI: G eneral: R lower latera side - hurting more some drainage. * ROS: E ENT: hearing changes d [...] ligament of left ankle, initial encounter Modified On:03/19/2023W/U Status:confirmed N20.0 Kidney stones Modified On:03/19/2023/U Status:confirmed Z00.00 Well adult Modified On:03/19/2023 Status:confirmed [...] kidney Modified On:04/10/2023 Status:confirmed N20.0 Nephrolithiasis Modified On:04/19/2024U Status:confirmed G56.22 Ulnar nerve compress ion, left Modified On:04/19/2024 Status:confirmed G56.21 Ulnar nerve compress ion, right Modified On:04/19/2024 Status:confirmed M62.838 Muscle spasm Modified On:07/28/2024 Status:confirmed E83.42 Hypomagnesemia Modified On:09/07/2024U Status:confirmed K21.9 GERD (gastroesophage al reflux disease) Modified On:09/07/2024U Status:confirmed N39.0 Acute UTI Modified On:10/06/2024 Status:confirmed N13.70 VUR (vesicoureteric reflux) Modified On:11/24/2024 Status:confirmed M54.16 Lumbar radiculopathy Modified On:03/23/2025 Status:confirmed N20.0 Altered urinary elim ination pattern due to calculus of kidney Modified On:04/26/2025 Status:confirmed Z46.6 Catheter (urine) calderon nge required Modified On:04/26/2025 Status:confirmed N28.89 Abnormal position of kidney Modified On:04/26/2025 Status:confirmed M25.50 Arthralgia Modified On:05/23/2025 Status:confirmed L03.90 Cellulitis Modified On:06/07/2025 Status:confirmed * Medical History: * Surgical History: [...] Use/Smoking P atient is a n onsmoker . * Medications: T akingMeloxicam 15 MG Tablet 1 tablet Orally Once a day Methenamine Hippurate 1 GM Tablet 1 tablet Orally Twice a day Potassium Chloride ER 10 MEQ Tablet Extended Release 1 tablet with food Orally Twice a day Promethazine HCl 25 MG Tablet 1 tablet as needed Orally q6h , Notes to Pharmacist: PRNtiZANidine HCl 4 MG Tablet 2 tabs Orally qhs Taking Meloxicam 15 MG Tablet 1 tablet Orally Once a day Taking Methenamine Hippurate 1 GM Tablet 1 tablet Orally Twice a day Taking Potassium Chloride ER 10 MEQ Tablet Extended Release 1 tablet with food Orally Twice a day Taking Promethazine HCl 25 MG Tablet 1 tablet as needed Orally q6h , Notes to Pharmacist: PRNTaking tiZANidine HCl 4 MG Tablet 2 tabs Orally qhs DiscontinuedAmoxicillin 500 MG Capsule 2 capsule Orally BID , Notes to Pharmacist: 30 days is correctDiflucan 100 MG Tablet 1 tablet Orally daily Medication List reviewed and reconciled with the patientDiscontinued Amoxicillin 500 MG Capsule 2 capsule Orally BID , Notes to Pharmacist: 30 days is correctDiscontinued Diflucan 100 MG Tablet 1 tablet Orally daily Medication List reviewed and reconciled with the patient * Allergies: N .K.D.A.no[Allergies Verified] Objective: * Vitals: W t:185lbs, Ht: 66 in, BP:118/82mm Hg, BMI:29.86Index, Ht-cm: 167.64 cm, Wt-k.92 kg. * Examination: P hysical Exam: GENERAL: [...] gallop. PULSES: n ormal capillary refill. ABDOMEN: R flank area iwht 2 cm erythema ans soem drainge.? MUSCULOSKELETAL: n o deformity or scoliosis noted, [...] mood and affect. Assessment: * Assessment: 1. C xander - L03.90 (Primary) Plan: * Treatment: * Procedure Codes: 3 079F DIAST BP 80-89 MM [id number] SYST BP LT 130 MM HG * Preventive Medicine: Screenings/Counseling: B [place] ACTION PLAN Above Normal BMI Follow-up D ietary management education, guidance, and counseling * * Sign off status: Completed Visit Status: C HK (Check Out) true * Provider: Walter Das ([facility])MD Date: 06/07/2025 Generated for Meenakshi krishnan/Neisha/eTquiquesmitting on: 06/19/2025 12:36 AM EDT History and Physical Notes * HPI (History of Present Illness) Category Sub-Category Detail Notes Category Not es General R lower latera side - hurting more some drainage Examination Category Sub-Category Detail Notes Category Not [...] gallop PULSES: normal capillary ref ill ABDOMEN: R flank area iwht 2 cm erythema ans soem drainge RECTAL: MUSCULOSKELETAL: no deformity or scol iosis [...]
--- OUTSIDE RECORDS SUMMARY | 2025-06-16 09:45 | XMS_ITS ---
Author Organization [facility] in [place] Address [address] [place] [address] Care Team Providers Care Marble Helper Name Role Phone Kendrick Das Primary Care Provider Allergies No Known Allergies REASON FOR VISIT F/U MULTIPLE ISSUES, in last week had a spot derm removed a spot, spot still painful not looking better, sickness s/s not getting any better, not eating much Medications Medication SIG (Take, Route, Frequency, Duration) Notes Start Date End Date Status Promethazine HCl 25 MG 1 tablet as neede d Orally q6h for 5 days PRN 01/23/2025 Active Mupirocin 2 % 1 application Mining Speculator ally Twice a day for 5 days 06/07/2025 Active Potassium Chloride ER 10 MEQ 1 tablet with food Orally Twice a day for 30 days 05/25/2025 Active Methenamine Hippurate 1 GM 1 tablet Oral ly Twice a day for 30 days 01/24/2025 Active Ketoprofen 10 % as directed Externally 06/16/2025 Active tiZANidine HCl 4 MG 2 tabs Orally qhs fo r 30 days 03/15/2025 Active Meloxicam 15 MG 1 tablet Orally Once a day for 30 days 03/15/2025 Active Ooegyghzkj-Vcni-Epljhszmdh 20-2-10 % as directed Externally 06/16/2025 Activ e Doxycycline Monohydrate 100 MG 1 tablet Orally bid for 10 days 06/07/2025 Active Social History Tobacco Use: Social History Observation Description Date Details (start date - stop date) Never Smoker NA - NA Tobacco Use/Smoking Question Answer Notes Patient is a nonsmoker Section Notes: . Problems Problem Type SNOMED Code ICD Code Onset Dates Problem Status W/U Status Risk Notes Problem Cervical radiculopathy (36011667) Cervical radiculopathy (M54.12) Active confirmed Problem Abdominal pain (19363005) Abdominal pain (R10.9) Active confirmed Vital Signs Weight 184.2 lbs 06/16/2025 Height 66 in 06/16/2025 Blood pressure systolic 122 mm Hg 06/16/20 25 Blood pressure diastolic 78 mm Hg 025 BMI 29.73 kg/m2 06/16/2025 Encounters Encounter Location Date Provider Diagnosis [facility] [address] [place] [address] 06/16/2025 Kendrick Das Cervical radiculopat hy M54.12 and Abdominal pain R10.9 Assessments Encounter Date Diagnosis (ICD Code) Assessment Notes Treatment Notes Treatment Clinical Notes Section Notes 06/16/2025 Cervical radiculopathy (ICD-10 - M54.12) 06/16/2025 Abdominal pain (ICD-10 - R10.9) 06/16/2025 Other Recommended to rest and use a heating pad on the area. Take NSAIDs for pain as needed Plan Of Treatment Medication Medication Name Sig Start Date Stop Date Notes Ketoprofen 10 % as directed Externally 06/16/2025 Dxgrgiusov-Jdxr-Vpupjqtcqw 2 0-2-10 % as directed Externally 06/16/2025 Treatment Notes Assessment Notes Other Recommended to rest and use a heating pad on the area. Take NSAIDs for pain as needed Pending Test Test Name Order Date MRI CSPINE WO CON 06/16/2025 US ABD 06/16/2025 Next Appt Details Provider Name:Kendrick Das, 10:00:00 AM, [address] [place], [address], Progress Notes * Diana BEAVER LDOB: 1 (34 yo F)Acc No.[id number]:06/16/2025 UNLOCKED PROGRESS NOTE Progress Note Patient: Osvaldo RATLIFFjuan Hyman Provider: Walter Das ([facility])MD :1990 A ge:34 Y S ex:Female Date:06/16/2025 Address:[place], [id number] Check In:01:32 PM ESTCheck O ut:02:22 PM EST Subjective: * Chief Complaints: * 1 . F/U MULTIPLE ISSUES. 2. In last week had a spot derm removed a spot. 3. Spot still painful not looking better. 4. Sickness s/s not getting any better. 5. Not eating much. * HPI: G eneral: Had bx a - skin a month ago 0 - did topical and pills - but feels like has injfection R lat - post waist line neck acting up - needs MRI with paresthsia in arms - copleted PT - felt worse after PT ABd poa - feeling fuoller fast- had ct month + ago - needs u/s. B ack Pain: The patient complains of [...] d enies. M usculoskeletal: Comments S ee [facility] for details. N eurologic: Dizziness d enies. [...] a n onsmoker . * Medications: T aking Doxycycline Monohydrate 100 MG Tablet 1 tablet Orally bid , Taking Meloxicam 15 MG Tablet 1 tablet Orally Once a day , Taking Methenamine Hippurate 1 GM Tablet 1 tablet Orally Twice a day , Taking Mupirocin 2 % Ointment 1 application Externally Twice a day , Taking Potassium Chloride ER 10 MEQ Tablet Extended Release 1 tablet with food Orally Twice a day , Taking Promethazine HCl 25 MG Tablet 1 tablet as needed Orally q6h , Notes to Pharmacist: PRN, Taking tiZANidine HCl 4 MG Tablet 2 tabs Orally qhs , Medication List reviewed and reconciled with the patient * Allergies: N .K.D.A. Objective: * Vitals: W t:184.2lbs, Ht: 66 in, BP:122/78mm Hg, BMI:29.73Index, Ht-cm: 167.64 cm, Wt-k.55 kg. * Examination: A bdomen Exam:: R latearl waist line - mild erytnema - sloly healing bx site. G eneral Examination: GENERAL APPEARANCE: i n no acute distress, well developed, well nourished. LUNGS: clear to auscultation bilaterally. CARDIO: S1, S2 normal, no murmurs, rubs, gallops. MUSCULOSKELETAL: ____. EXTREMITIES: no clubbing, cyanosis, or edema. NEUROLOGIC: alert, oriented to time, place, & person.? Assessment: * Assessment: 1. C ervical radiculopathy - M54.12 (Primary) 2 . A bdominal pain - R10.9? Plan: * Treatment: 2. A bdominal pain I maging: US ABD 3. O thers Start Szladqtgci-Puos-Tctiizagyw Cream, 20-2-10 %, as directed, Externally; S tart Ketoprofen Cream, 10 %, as directed, Externally. Notes: Recommended to rest and use a heating pad on the area. Take NSAIDs for pain as needed ? * Preventive Medicine: Screenings/Counseling: B [place] ACTION PLAN Above Normal BMI Follow-up D ietary management education, guidance, and counseling * * Electronic signature of Kendrick Das MD, [phone] on 06/19/2025 at 12:36 AM EDT Sign off status: Pending Visit Status: C HK (Check Out) * Provider: Walter Das ([facility])MD Date: 0 06/16/2025 Generated for Printi ng/Faxing/eTransmitting on: 0 06/19/2025 12:36 AM EDT History and Physical Notes * HPI (History of Present Illness) Category Sub-Category Detail Notes Category Not es General Had bx a - skin a month ago 0 - did topical and pills - but feels like has injfection R lat - post waist line neck acting up - needs MRI with paresthsia in arms - copleted PT - felt worse after PT ABd poa - feeling fuoller fast- had ct month + ago - needs u/s Examination Category Sub-Category Detail Notes Category Not es Abdomen Exam: R latearl wais t line - mild erytnema - sloly healing bx site General Examination GENERAL APPEARANCE: in no ac hernan distress, well developed, well nourished CARDIO: S1, S2 normal, no mu rmurs, rubs, gallops LUNGS: clear to auscultatio n bilaterally NEUROLOGIC: alert, oriented to t leonid, place, & person EXTREMITIES: no clubbing, cyanosi s, or edema MUSCULOSKELETAL: ____
[2025-06-19 00:33] VITALS: BP 150/100; PULSE 89; TEMP 37; O2SAT 97; BMI 28.2
--- OUTSIDE RECORDS SUMMARY | 2025-06-19 00:35 | XMS_ITS | Encounter Summary ---
Author Organization [facility] Address [address] [place] [address] Care Team Providers Care Film Spooler Name Role Phone Ignacio Das MD Primary Care Provider [phone] Encounter Details Date Type Department Care Team (Late Contact Info) Description 12/29/2023 Clinisync Result Encounter [facility] External Department Unsolicited Jefferson Gibbs DO [address] [place] [address] Social History Tobacco Use Types Packs/Day Years [...] Department Care Team (Late Contact Info) Description 04/09/2026 9:00 AM EDT Office Visit [facility] [address] [place] [phone] Jefferson Gibbs DO [address] [place] [address] 05/29/2026 1:15 PM EDT Office Visit [facility] [address] [place] [address] Alejandra Leiva MD [address] [place] [address] documented as of this encounter Procedures Procedure Name Priority Date/Time Associated Diagnosis Comments US GUIDED BREAST BIOPSY LT 12/29/2023 8:24 AM EDT documented in this encounter Results * US GUIDED BREAST BIOPSY LT (12/29/2023 8:24 AM EDT) Anatomical Region Laterality Modality Radiographic Megan ging 12/29/2023 8:24 AM EDT Narrative 12/29/2023 8:27 [place] [address] Ultrasound Report Signed Patient: DIANA BEAVER MR#: [id number] : 1990 Acct:[id number] Age/Sex: 33 / F ADM Date: 12/29/23 Loc: US Attending Dr: Jefferson Gibbs D.O. Ordering Physician: Jefferson Gibbs D.O. Date of Service: 12/29/23 Procedure(s): US breast vac bx w/ clip LT Accession Number(s): [id number] cc: Jefferson Gibbs D.O.; Ignacio Das M.D. [address] [address] Patient Name: DIANA BEAVER MRN: [id number] date: 1990 Sex: F Assigned Patient Location: Current Patient Location: US Accession/Order Number: [id number] Exam Date: 12/29/2023 07:20 Report Date: 12/29/2023 [...] M.D. Signed By: 12/29/23826 DD/ 3 TD/TT: Funeral Service Apprentice: Procedure Note Radiology, Radiologist, MD - 12/29/2023 [place] [address] Ultrasound Report Signed Patient: DIANA BEAVER LMR#: [id number] : 1990Acct:[id number] Age/Sex: 33 / FADM Date: 12/29/23 Loc: US Attending Dr: Jefferson Gibbs D.O. Ordering Physician: Jefferson Gibbs D.O. Date of Service: 12/29/23 Procedure(s): US breast vac bx w/ clip LT Accession Number(s): [id number] cc: Jefferson Gibbs D.O.; Ignacio Das M.D. The [address] [id number] Patient Name: DIANA BEAVER MRN: [id number] date: 1990 Sex: F Assigned Patient Location: US Current Patient Location: US Accession/Order Number: [id number] Exam Date: 12/29/2023 07:20 Report Date: 12/29/2023 [...] Graff M.D. Signed By:12/29/23826 DD/ 3 TD/TT: Funeral Service Apprentice: us Jefferson Bernie DO IMG XR PROCEDURES Final Result documented in this encounter Visit Diagnoses Not on filedocumented in this encounter Care Teams Film Spooler Relationship Specialty Start Date End Date Ignacio Das MD [address] [place] [address] PCP - General Family Medicine 04/13/23 documented as of this encounter
--- OUTSIDE RECORDS SUMMARY | 2025-06-19 00:35 | XMS_ITS | Encounter Summary ---
Author Organization [facility] Address [address] [place] [address] Care Team Providers Care Qualitative Field Project Manager Name Role Phone Ignacio Das MD Primary Care Provider [phone] Encounter Details Date Type Department Care Team (Late Contact Info) Description 12/29/2023 Clinisync Result Encounter [facility] External Department Unsolicited Jefferson Gibbs DO [address] [place] [address] Social History Tobacco Use Types Packs/Day Years [...] EDT Office Visit [facility] [address] [place] [address] Jefferson Gibbs DO [address] [place] [address] 05/29/2026 1:15 PM EDT Office Visit [facility] [address] [place] [address] Alejandra Leiva MD [address] [place] [address] documented as of this encounter Procedures Procedure Name Priority Date/Time Associated Diagnosis Comments MM POST BIOPSY LT 12/29/2023 8:5 7 AM EDT documented in this encounter Results * MM POST BIOPSY LT (12/29/2023 8:57 AM EDT) Anatomical Region Laterality Modality Other 12/29/2023 8:57 AM EDT Narrative 12/29/2023 8:57 AM EDT The [place] [id number] Mammography Report Signed Patient: DIANA BEAVER MR#: [id number] : 1990 Acct:[id number] Age/Sex: 33 / F ADM Date: 12/29/23 Loc: US Attending Dr: Jefferson Gibbs D.O. Ordering Physician: Jefferson Gibbs D.O. Results: Date of Service: 12/29/23 Follow Up: Procedure(s): MM post biopsy LT Accession Number(s): [id number] cc: Jefferson Gibbs D.O.; Ignacio Das M.D. Patient Name: DIANA BEAVER MR#: [id number] : 1990 Exam Date: 12/29/2023 Ordering Doctor: [...] Signed By: 12/29/23 0857 DD/ 0857 TD/TT: Java Lead: Procedure Note Radiology, Radiologist, - 12/29/[address] [address] Mammography Report Signed Patient: DIANA BEAVER LMR#: [id number] : 1990Acct:[id number] Age/Sex: 33 / FADM Date: 12/29/23 Loc: US Attending Dr: Jefferson Gibbs D.O. Ordering Physician: Jefferson Gibbs D.O.Results: Date of Service: 12/29/23Follow Up: Procedure(s): MM post biopsy LT Accession Number(s): [id number] cc: Jefferson Gibbs D.O.; Ignacio Das M.D. Patient Name: DIANA BEAVER MR#: [id number] : 1990 Exam Date: 12/29/2023 Ordering Doctor: [...] M.D. Signed By:12/29/23 0857 DD/ 0857 TD/TT: Java Lead: Jefferson Gibbs DO [facility] Final Result documented in this encounter Visit Diagnoses Not on filedocumented in this encounter Care Teams Qualitative Field Project Manager Relationship Specialty Start Date End Date Ignacio Das MD [facility] [place] [address] PCP - General Family Medicine 04/13/23 documented as of this encounter
--- OUTSIDE RECORDS SUMMARY | 2025-06-19 00:35 | XMS_ITS | Encounter Summary ---
Author Organization [facility] Address [address] [place] [address] Care Team Providers Care Fire Extinguisher Charger Name Role Phone Ignacio Das MD Primary Care Provider [phone] Encounter Details Date Type Department Care Team (Late Contact Info) Description 12/23/2023 Clinisync Result Encounter [facility] External Department Unsolicited Tamiko Chacon PA [address] [place], [facility] Social History Tobacco Use Types [...] AM EDT Office Visit [place] [facility] [address] [address] Jefferson Gibbs DO [address] [place], [facility] 05/29/2026 1:15 PM EDT Office Visit [facility] [address] [place] [phone] Alejandra Leiva MD [address] [place] [address] documented as of this encounter Procedures Procedure Name Priority Date/Time Associated Diagnosis Comments MM TOMOSYNTHESIS DIAGNOSTIC BI 12/23/2023 1:47 PM EST documented in this encounter Results * MM TOMOSYNTHESIS DIAGNOSTIC BI (12/23/2023 1:47 PM EST) Anatomical Region Laterality Modality Other 12/23/2023 1:47 PM EST Narrative 12/23/2023 1:48 [place] [address] Mammography Report Signed Patient: DIANA BEAVER MR#: [id number] : 1990 Acct:[id number] Age/Sex: 33 / F ADM Date: 12/23/23 Loc: MAMMO Attending Dr: Jefferson Gibbs D.O. Ordering Physician: Tamiko Chacon Results: Date of Service: 12/23/23 Follow Up: Procedure(s): MM tomosynthesis diagnostic BI Accession Number(s): [id number] cc: Tamiko Chacon; Ignacio Das M.D. Patient Name: DIANA BEAVER MR#: [id number] : 1990 Exam Date: 12/23/2023 Ordering Doctor: [...] Treatments None Family Cancers None LOCATION: [facility] BREAST COMPOSITION: Extremely dense, which lowers [...] Signed By: 12/23/23 1348 DD/ 1347 TD/TT: Captain Airline Pilot: Procedure Note Radiology, Radiologist, MD - 12/23/2023 [place] [address] Mammography Report Signed Patient: DIANA BEAVER LMR#: [id number] : 1990Acct:[id number] Age/Sex: 33 / FADM Date: 12/23/23 Loc: MAMMO Attending Dr: Jefferson Gibbs D.O. Ordering Physician: Tamiko Najeraults: Date of Service: 12/23/23Follow Up: Procedure(s): MM tomosynthesis diagnostic BI Accession Number(s): [id number] cc: Tamiko Chacon; Ignacio Das M.D. Patient Name: DIANA BEAVER MR#: [id number] : 1990 Exam Date: 12/23/2023 Ordering Doctor: [...] M.D. Signed By:12/23/23 1348 DD/ 1347 TD/TT: Captain Airline Pilot: Tamiko MADDOX [facility] Final Result documented in this encounter Visit Diagnoses Not on filedocumented in this encounter Care Teams Fire Extinguisher Charger Relationship Specialty Start Date End Date Ignacio Das MD [address] [place] [address] PCP - General Family Medicine 04/13/23 documented as of this encounter
--- OUTSIDE RECORDS SUMMARY | 2025-06-19 00:35 | XMS_ITS | Encounter Summary ---
Author Organization [facility] Address [address] [place] [address] Care Team Providers Care Rag Washer Name Role Phone Ignacio Das MD Primary Care Provider [phone] Encounter Details Date Type Department Care Team (Late Contact Info) Description 12/23/2023 Clinisync Result Encounter [facility] External Department Unsolicited Jefferson Gibbs DO [address] [place] [address] Social History Tobacco Use Types Packs/Day Years [...] EDT Office Visit [facility] [address] [place] [phone] Jefferson Gibbs DO [address] [place] [address] 05/29/2026 1:15 PM EDT Office Visit [facility] [address] [place] [address] Alejandra Leiva MD [address] [place] [address] documented as of this encounter Procedures Procedure Name Priority Date/Time Associated Diagnosis Comments US BREAST LT LIMITED 12/23/2023 1:47 PM EST documented in this encounter Results * US BREAST LT LIMITED (12/23/2023 1:47 PM EST) Anatomical Region Laterality Modality Other 12/23/2023 1:47 PM EST Narrative 12/23/2023 1:48 [place] [address] Ultrasound Report Signed Patient: DIANA BEAVER MR#: [id number] : 1990 Acct:[id number] Age/Sex: 33 / F ADM Date: 12/23/23 Loc: MAMMO Attending Dr: Jefferson Gibbs D.O. Ordering Physician: Jefferson Gibbs D.O. Date of Service: 12/23/23 Procedure(s): US breast LT limited Accession Number(s): [id number] cc: Jefferson Gibbs D.O.; Ignacio Das M.D. Patient Name: DIANA BEAVER MR#: [id number] : 1990 Exam Date: 12/23/2023 Ordering Doctor: [...] Treatments None Family Cancers None LOCATION: [facility] BREAST COMPOSITION: Extremely dense, which lowers [...] Signed By: 12/23/23 1348 DD/ 1347 TD/TT: Events Traffic Controller: Procedure Note Radiology, Radiologist, - 12/23/2023 [place] [address] Ultrasound Report Signed Patient: DIANA BEAVER LMR#: [id number] : 1990Acct:[id number] Age/Sex: 33 / FADM Date: 12/23/23 Loc: MAMMO Attending Dr: Jefferson Gibbs D.O. Ordering Physician: Jefferson Gibbs D.O. Date of Service: 12/23/23 Procedure(s): US breast LT limited Accession Number(s): [id number] cc: Jefferson Gibbs D.O.; Ignacio Das M.D. Patient Name: DIANA BEAVER MR#: [id number] : 1990 Exam Date: 12/23/2023 Ordering Doctor: [...] Treatments None Family Cancers None LOCATION: [facility] BREAST COMPOSITION: Extremely dense, which lowers [...] M.D. Signed By:12/23/23 1348 DD/ 1347 TD/TT: Events Traffic Controller: [facility] DO [facility] Final Result documented in this encounter Visit Diagnoses Not on filedocumented in this encounter Care Teams Rag Washer Relationship Specialty Start Date End Date Ignacio Das MD [address] [place] [address] PCP - General Family Medicine 04/13/23 documented as of this encounter
--- OUTSIDE RECORDS SUMMARY | 2025-06-19 00:37 | XMS_ITS | Encounter Summary ---
Author Organization [facility] Address [address] [place] [address] Care Team Providers Care Air And Hydronic Balancing Technician Name Role Phone Ignacio Das MD Primary Care Provider [phone] Encounter Details Date Type Department Care Team (Latest Contact Info) Description 04/18/2025 Results Follow-Up [facility] [address] [place] [address] Alejandra Leiva MD [address] [place] [address] Dermatopathology exam Social History Tobacco Use Types Packs/Day Years [...] Care Team (Late st Contact Info) Description 04/09/2026 9:00 AM EDT Office Visit [facility] [address] [place] [place] [phone] Jefferson Gibbs DO [address] [place], [place] [address] 05/29/2026 1:15 PM EDT Office Visit [facility] [address] [place] [address] Alejandra Leiva MD [address] [place] [address] documented as of this encounter Visit Diagnoses Not on filedocumented in this encounter Care Teams Air And Hydronic Balancing Technician Relationship Specialty Start Date End Date Ignacio Das MD [address] [facility] [place] [phone] PCP - General Family Medicine 04/13/23 documented as of this encounter
--- OUTSIDE RECORDS SUMMARY | 2025-06-19 00:37 | XMS_ITS | Clinical Summary ---
Author Organization [employer] [facility] Address [id number] [address] [place] [address] Care Team Providers Care Any Commodity Buyer Name Role Phone Ignacio Das MD Primary Care Provider [phone] Allergies No known active allergies Medications prenat.vits,rodger,min [...] Narrative COPATH - 02/03/2018 12:11 PM EDT [facility] [address] [place] [address] Gynecologic Cytology Consultation Patient Name: DIANA ENAMORADO : 1990 (Age: 27) Gender: F Taken: 01/22/2018 Reported: 02/03/2018 Physician(s): Yuniel Rosenberg MD [phone]) Copy To: Med. Rec. #: [id number] Acct: # [id number] Final Cytologic Interpretation Cervical (with or without endocervical) ThinPrep: Satisfactory for evaluation. A transformation zone component is present. NEGATIVE FOR INTRAEPITHELIAL LESION OR MALIGNANCY. Shift in greg suggestive of bacterial vaginosis. jja/02/03/2018 Electronically Signed Out By CARON Galeano (ASCP) Date of Last Menstrual Period: 12/25/2017 Other Clinical Conditions: Screening/Routine z01.419 Real Estate Listing Consultant exam wo/abn findings Source of Specimen Cervical (with or without endocervical) ThinPrep Thin Prep Pap (GOLD LAYER) Fee Code(s): G0145 The Pap test is a screening test with an inherent, but low, probability of error. The Pap test is primarily effective for the diagnosis and prevention of squamous cell carcinoma. Regular screening is critical for prevention. ThinPrep liquid-based slides, which meet the [employer] Sql Developer criteria for automated screening, have been screened by the ThinPrep Imaging System (as of 07/05/07) along with an additional manual rescreening by a information assurance specialist and, if indicated, by a pathologist.Yuniel Rosenberg, [...] 9:20 AM 08/14/2018 4:36 PM Care Teams Any Commodity Buyer Relationship Specialty Start Date End Date Ignacio Das MD PCP - General Family Medicine 09/17/20
--- OUTSIDE RECORDS SUMMARY | 2025-06-19 00:37 | XMS_ITS | Patient Health Record ---
Author Organization [facility] [place] Address [address] [place] [address] Care Team Providers Care Grey Washer Name Role Phone Kendrick Das Primary Care Provider Daniel Adonis Unavailable [phone] Allergies No Known Allergies Results Component Value Reference Range Notes UA DIP NONAUTO WO MICRO (810 02) - IN OFFICE Reviewed date:03/16/2025 03:01:21 PM Interpretation: Performing Lab: Notes/Report: COLOR yellow CLARITY cloudy GLUCOSE neg BLOOD 1+ PROTEIN 1+ NITRITE positive LEUKOCYTE ESTERASE 3+ SARS-CoV-2 Ag* Reviewed date:06/29/2024 09:48:01 PM Interpretation: Performing Lab: Notes/Report: [facility] , SARS-CoV-2 Ag NEGATIVE NEGATIVE This [...] Performing Lab: see note ML - [facility] LB PROF 14(COMP METB) Reviewed date:05/24/2025 05:16:43 PM Interpretation: Performing Lab: Notes/Report: [facility] , Sodium 142 136-145 mmol/L Potassium 3.4 3.5-5.1 mmol/L Chloride 105 98-107 mmol/L Carbon Dioxide 31.2 21.0-32.0 mmol/L Anion Gap 9.2 Glucose 85 74-106 mg/dL Blood Urea Nitrogen 12.0 7.0-18.0 mg/dL Creatinine 0.79 0.55-1.02 mg/dL Estimated GFR ( Kyung >60 >=60 mL/min/1.73m 2 Estimated GFR (Non- Shefali >60 >=60 mL/min/1.73m 2 BUN Creatinine Ratio 15.2 Calcium 9.6 8.5-10.1 mg/dL Bilirubin Total 0.6 0.2-1.0 mg/dL Aspartate Amino Transferase 24 15-37 U/L Alanine Aminotransferase 45 14-59 U/L Alkaline Phosphatase 78 46-116 U/L Total Protein 8.3 6.4-8.2 g/dL Albumin Level 4.4 3.4-5.0 g/dL Globulin 3.9 Albumin Globulin Ratio 1.1 Performing Lab: see note - [facility] LB Erythrocyte Sedimentation Ra te Reviewed date:05/24/2025 05:16:43 PM Interpretation: Performing Lab: Notes/Report: [facility] , Erythrocyte Sedimentation Rate 19 <=20 mm/hr Performing Lab: see note - [facility] LB CBC AUTO DIFF Reviewed date:05/24/2025 02:35:47 PM Interpretation: Performing Lab: Notes/Report: [facility] , White Blood Count 7.0 4.0-11.0 [...] Performing Lab: see note ML - [facility] LB XR sacrum coccyx min 2V Reviewed date:03/28/2025 04:31:58 PM Interpretation: Performing Lab: Notes/Report: Source Facility: [place] [address] XRay Report Signed Patient: DIANA BARRIGA MR#: [id number] : 1990 Acct:[id number] Age/Sex: 34 / F ADM Date: 03/28/25 Loc: RAD Attending Dr: Domingo Das M.D. Ordering Physician: Domingo Das M.D. Date of Service: 03/28/25 Procedure(s): XR sacrum coccyx min 2V Accession Number(s): [id number] cc: Domingo Das M.D. [place] [id number] Patient Name: DIANA BARRIGA MRN: [id number] date: 1990 Sex: F Assigned Patient Location: RAD Current Patient Location: RAD Accession/Order Number: [id number] Exam Date: 03/28/2025 08:29 Report Date: 03/28/2025 [...] Celis M.D. 03/28/2025 8:35 AM Dictation Location: [place] [address] Electronically authenticated by: [id number] Y Date: 03/28/2025 08:35 Dictated By: Imani Celis M.D. Signed By: 03/28/25 0837 DD/ TD/TT: Swage Tender: [place] [address] XRay Report Signed Patient: RAMIN BARRIGA MR#: [id number] : 1990 Acct:[id number] Age/Sex: 34 / F ADM Date: 03/28/25 Loc: RAD Attending Dr: Radha Das M.D. Ordering Physician: Domingo Das M.D. Date of Service: 03/28/25 Procedure(s): XR sac rum coccyx min 2V Accession Number(s): [id number] cc: Domingo Das M.D. [place] [id number] Patient Name: DIANA BARRIGA MRN: [id number] date: 1990 Sex: F Assigned Patient Location: [facility] Current Patient Location: RAD Accession/Order Numb er: [id number] Exam Date: 03/28/2025 08:29 Report Date: 03/28/2025 [...] Celis M.D. 03/28/2025 8:35 AM Dictation Location: [place] [address] Electronically authenticated by: [id number] Y Date: 03/28/2025 08:35 Dictated By: Imani Celis M.D. Signed By: 03/28/25 0837 DD/ 0835 TD/TT: Swage Tender: RUFINO MACE (810 02) - IN OFFICE Reviewed date:12/03/2024 02:14:40 PM Interpretation: Performing Lab: Notes/Report: COLOR straw CLARITY clear GLUCOSE neg BILIRUBIN neg KETONE neg SPECIFIC GRAVITY 1.015 BLOOD 50 PH 7 PROTEIN trace UROBILINOGEN neg NITRITE neg LEUKOCYTE ESTERASE trace PROF 14(COMP METB) Reviewed date:09/08/2024 02:54:07 PM Interpretation: Performing Lab: Notes/Report: [facility] , Sodium 141 136-145 mmol/L Potassium [...] 1.1 Performing Lab: see note ML - [facility] LB MAGNESIUM Reviewed date:09/08/2024 02:54:07 PM Interpretation: Performing Lab: Notes/Report: [facility] , Magnesium 1.6 1.8-2.4 mg/dL Performing Lab: see note ML - [facility] LB CRP Reviewed date:09/08/2024 02:54:07 PM Interpretation: Performing Lab: Notes/Report: [facility] , C Reactive Protein <0.50 <=0.50 mg/dL Performing Lab: see note ML - [facility] LB CBC AUTO DIFF Reviewed date:09/08/2024 02:54:07 PM Interpretation: Performing Lab: Notes/Report: [facility] , White Blood Count 6.0 4.0-11.0 [...] 10 3/uL Performing Lab: see note - [facility] LB AMMONIA Reviewed date:09/08/2024 02:54:07 PM Interpretation: Performing Lab: Notes/Report: [facility] , Ammonia <10 11-32 umol/L Performing Lab: see note - [facility] LB Calcium, Ionized, Serum Reviewed date:07/29/2024 01:04:17 PM Interpretation: Performing Lab: [facility]/Report: [facility] , Calcium, Ionized, Serum 5.2 4.5-5.6 mg/dL Performed at: [facility] [address] [id number] Button Sewer Hand: Travis Menjivar PhD, Phone: [phone] Performing Lab: see note - [facility] LB VITAMIN D 25 [place] Reviewed date:07/28/2024 07:31:04 PM Interpretation: Performing Lab: Notes/Report: [facility] , Vitamin D 21.7 <20 ng/mL Vit D deficient 20-<30 ng/mL Vit D insufficient 30-100 ng/mL Vit D sufficient >100 ng/mL Potential Toxicity Performing Lab: see note [place] LB PHOSPHORUS Reviewed date:07/28/2024 07:31:04 PM Interpretation: Performing Lab: Notes/Report: [facility] , Phosphorus 3.6 2.6-4.7 mg/dL Performing Lab: see note ML - [facility] LB MAGNESIUM Reviewed date:07/28/2024 07:31:04 PM Interpretation: Performing Lab: Notes/Report: [facility] , Magnesium 1.5 1.8-2.4 mg/dL Performing Lab: see note ML - [facility] LB NM KIDNEY W FLOW AND FUNCTIO N W PHARMACOLOGICAL INTERVENTION Reviewed date:01/22/2025 03:38:47 PM Interpretation: Performing Lab: Notes/Report: EXAMINATION: NM KIDNEY W FLOW AND FUNCTION W PHARMACOLOGICAL INTERVENTION Performed at: [place] [id number] Performed at: XR abdomen 1V Reviewed date:12/03/2024 02:14:40 PM Interpretation: Performing Lab: Notes/Report: Source Facility: [place] [address] [place] [address] XRay Report Signed Patient: DIANA BARRIGA MR#: [id number] : 1990 Acct:[id number] Age/Sex: 34 / F ADM Date: 12/02/24 Loc: ER Attending Dr: Ordering Physician: Ninoska Leonard Date of Service: 12/02/24 Procedure(s): XR abdomen 1V Accession Number(s): [id number] cc: Domingo Das M.D.; Ninoska Leonard [place] [id number] Patient Name: DIANA BARRIGA MRN: [id number] date: 1990 Sex: F Assigned Patient Location: ER Current Patient Location: Accession/Order Number: [id number] Exam Date: 12/02/2024 18:12 Report Date: 12/02/2024 [...] of bilateral nephrolithiasis Electronically authenticated by: KAT ADVENPORT Date: 12/02/2024 20:07 Dictated By: Kat Davenport M.D. Signed By: 12/02/242008 DD/ 06 TD/TT: Swage Tender: [place] [address] XRay Report Signed Patient: RAMIN BARRIGA MR#: [id number] : 1990 Acct:[id number] Age/Sex: 34 / F ADM Date: 12/02/24 Loc: ER Attending Dr: Ordering Physician: Ninoska Leonard Date of Service: 12/02/24 Procedure(s): XR abd omen 1V Accession Number(s): [id number] cc: Domingo Das M.D. ; Ninoska Leonard [address] [address] Patient Name: DIANA BARRIGA MRN: [id number] date: 1990 Sex: F Assigned Patient Location: ER Current Patient Location: Accession/Order Numb er: [id number] Exam Date: 12/02/2024 18:12 Report Date: 12/02/2024 [...] M.D. Signed By: 12/02/242008 DD/ 06 TD/TT: Swage Tender: RUIFNO Mace, reflex to culture Reviewed date:12/03/2024 02:14:40 PM Interpretation: Performing Lab: Notes/Report: [facility] , Color Urine DK. ORANGE YELLOW Clarity Urine CLEAR CLEAR Specific [place] Urine <=1.005 1.005-1.025 pH Urine 6.5 5.0-9.0 [...] SEEN NONE SEEN #/LPF Urine Culture Indicated YES[place] Performing Lab: see note ML - [facility] LB PROF 14(COMP METB) Reviewed date:12/03/2024 02:14:40 PM Interpretation: Performing Lab: Notes/Report: [facility] , Sodium 142 136-145 mmol/L Potassium [...] 1.1 Performing Lab: see note ML - [facility] LB LIPASE Reviewed date:12/03/2024 02:14:40 PM Interpretation: Performing Lab: Notes/Report: [facility] , Lipase 29.0 16.0-77.0 U/L Performing Lab: see note ML - [facility] LB LACTATE or LACTIC ACID Reviewed date:12/03/2024 02:14:40 PM Interpretation: Performing Lab: Notes/Report: [facility] , Lactate/Lactic Acid 1.1 0.4-2.0 mmol/L Performing Lab: see note ML - [facility] LB CBC AUTO DIFF Reviewed date:12/03/2024 02:14:40 PM Interpretation: Performing Lab: Notes/Report: [facility] , White Blood Count 7.3 4.0-11.0 [...] 3/uL Performing Lab: see note ML - [facility] LB Urine Culture, Routine Reviewed date:10/04/2024 12:21:27 PM Interpretation: Performing Lab: Notes/Report: [facility] , Urine Culture, Routine See Below For Report Urine Culture, Routine Urine Culture, Routine Mixed urogenital greg Urine Culture, Routine Urine Culture, Routine 10,000-25,000 col bryon forming units per mL Urine Culture, Routine Urine Culture, Routine Performed at: [facility] Urine Culture, Routine Urine Culture, Routine [address] [place] [id number] Urine Culture, Routine Urine Culture, Routine Button Sewer Hand: Arie Menjivar PhD, Phone: [phone] Urine Culture, Routine Performing Lab: see note - [facility] LB SEE REPORT - Sign Carpenter Id information not found for OBX-specific insurance sales producer legend Erythrocyte Sedimentation Ra te Reviewed date:09/08/2024 02:54:07 PM Interpretation: Performing Lab: Notes/Report: [facility] , Erythrocyte Sedimentation Rate 10 <=20 mm/hr Performing Lab: see note ML - [facility] LB XR hip BI w PEL 1V Reviewed date:07/29/2024 01:04:17 PM Interpretation: Performing Lab: Notes/Report: Source Facility: [place] [address] [place] [address] XRay Report Signed Patient: DIANA BARRIGA MR#: [id number] : 1990 Acct:[id number] Age/Sex: 33 / F ADM Date: 07/28/24 Loc: LAB Attending Dr: Domingo Das M.D. Ordering Physician: Domingo Das M.D. Date of Service: 07/28/24 Procedure(s): XR hip BI w PEL 1V Accession Number(s): [id number] cc: Domingo Das M.D. [address], [place] [id number] Patient Name: DIANA BARRIGA MRN: [id number] date: 1990 Sex: F Assigned Patient Location: LAB Current Patient Location: Accession/Order Number: [id number] Exam Date: 07/28/2024 09:45 Report Date: 07/29/2024 [...] M.D. Signed By: 07/29/24451 DD/ 9 TD/TT: Swage Tender: [place] [address] XRay Report Signed Patient: RAMIN BARRIGA MR#: [id number] : 1990 Acct:[id number] Age/Sex: 33 / F ADM Date: 07/28/24 Loc: LAB Attending Dr: Radha Das M.D. Ordering Physician: Dominog Das M.D. Date of Service: 07/28/24 Procedure(s): XR hip BI w PEL 1V Accession Number(s): [id number] cc: Domingo Das M.D. [place] [id number] Patient Name: DIANA BARRIGA MRN: [id number] date: 1990 Sex: F Assigned Patient Location: LAB Current Patient Location: Accession/Order Numb er: [id number] Exam Date: 09:45 Report Date: 07/29/2024 04:50 [...] M.D. Signed By: 07/29/24451 DD/ 9 TD/TT: Swage Tender: XR lumbar spine min 4V Reviewed date:07/28/2024 07:31:04 PM Interpretation: Performing Lab: Notes/Report: Source Facility: [place] [address] XRay Report Signed Patient: DIANA BARRIGA MR#: [id number] : 1990 Acct:[id number] Age/Sex: 33 / F ADM Date: 07/28/24 Loc: LAB Attending Dr: Domingo Das M.D. Ordering Physician: Domingo Das M.D. Date of Service: 07/28/24 Procedure(s): XR lumbar spine min 4V Accession Number(s): [id number] cc: Domingo Das M.D. [place] [address] Patient Name: DIANA BARRIGA MRN: [id number] date: 1990 Sex: F Assigned Patient Location: LAB Current Patient Location: LAB Accession/Order Number: [id number] Exam Date: 07/28/2024 09:45 Report Date: 07/28/2024 [...] M.D. Signed By: 07/28/24 1108 DD/ TD/TT: Swage Tender: [place] [address] XRay Report Signed Patient: RAMIN BARRIGA MR#: [id number] : 1990 Acct:[id number] Age/Sex: 33 / F ADM Date: 07/28/24 Loc: LAB Attending Dr: Radha Das M.D. Ordering Physician: Domingo Das M.D. Date of Service: 07/28/24 Procedure(s): XR lum bar spine min 4V Accession Number(s): [id number] cc: Domingo Das M.D. [place] [address] Patient Name: DIANA BARRIGA MRN: [id number] date: 1990 Sex: F Assigned Patient Location: LAB Current Patient Location: LAB Accession/Order Numb er: [id number] Exam Date: 09:45 Report Date: 07/28/2024 11:05 [...] M.D. Signed By: 07/28/248 DD/ 04 TD/TT: Swage Tender: Vitamin B12 Reviewed date:07/29/2024 01:04:17 PM Interpretation: Performing Lab: [facility]/Report: [facility] , Vitamin B12 983 649-1121 pg/mL Performed at: [facility] [address] [id number] Button Sewer Hand: Travis Menjivar PhD, Phone: [phone] Performing Lab: see note - [facility] LB TSH Reviewed date:07/28/2024 07:31:04 PM Interpretation: Performing Lab: Notes/Report: [facility] , Thyroid Stimulating Hormone 1.218 0.358-3.740 uIU/mL Performing Lab: see note ML - [facility] LB T4 Reviewed date:07/28/2024 07:31:04 PM Interpretation: Performing Lab: Notes/Report: [facility] , T4 Thyroxine 8.40 4.80-13.90 ug/dL Performing Lab: see note - [facility] LB PROF 14(COMP METB) Reviewed date:07/28/2024 07:31:04 PM Interpretation: Performing Lab: Notes/Report: [facility] , Sodium 139 136-145 mmol/L Potassium [...] 1.0 Performing Lab: see note ML - [facility] IRON Reviewed date:07/28/2024 07:31:04 PM Interpretation: Performing Lab: Notes/Report: [facility] , Iron 54.0 50.0-170.0 ug/dL Performing Lab: see note ML - [facility] FREE T3 Reviewed date:07/28/2024 07:31:04 PM Interpretation: Performing Lab: Notes/Report: [facility] , Free T3 2.73 2.18-3.98 pg/mL Performing Lab: see note ML - [facility] LB FOLATE Reviewed date:07/28/2024 07:31:04 PM Interpretation: Performing Lab: Notes/Report: [facility] , Folate 4.40 8.60-58.90 ng/mL Performing Lab: see note ML - [facility] LB CBC AUTO DIFF Reviewed date:07/28/2024 10:17:10 AM Interpretation: Performing Lab: Notes/Report: [facility] , White Blood Count 6.7 4.0-11.0 [...] 3/uL Performing Lab: see note ML - [facility] LB Urine Culture - [facility] Reviewed date:12/07/2024 07:22:21 PM Interpretation: Performing Lab: Notes/Report: [facility] , Urine Culture - [facility] See Below For Report Urine Culture - [facility] 30,000 colonies/ml mixed Urine Culture - [facility] bacterial skin contaminants Urine Culture - [place] 30,000 colonies/ml mixed Urine Culture - [facility] 2 Days Urine Culture - [place] 30,000 colonies/ml mixed Urine Culture - [facility] Urine Culture - [place] 30,000 colonies/ml mixed Urine Culture - [facility] Testing performed a [facility] Urine Culture - FR 30,000 colonies/ml mixed Urine Culture - [facility] [address] [place] [address] Urine Culture - [facility] 30,000 colonies/ml mixed Performing Lab: see note ML - [facility] LB URINE MICROSCOPIC ONLY Reviewed date:10/02/2024 08:18:34 PM Interpretation: Performing Lab: Notes/Report: [facility] , WBC Urine 5-10 NONE SEEN #/HPF RBC Urine 0-2 0-2 #/HPF Bacteria Urine SMALL NONE SEEN #/HPF Mucus Urine TRACE NONE SEEN Squamous Epithelial Cell Urine FEW NONE/RARE #/LPF Crystals Seen? None Seen None Seen #/HPF Amorphous Sediment Urine FEW Cast Seen? NONE SEEN NONE SEEN #/LPF Urine Culture Indicated YES Performing Lab: see note ML - [facility] LB UA (CLEAN or CATCH) WEIGHER AND MIXER or M ICRO IF IND. Reviewed date:10/02/2024 08:18:34 PM Interpretation: Performing Lab: Notes/Report: [facility] , Color Urine LT. YELLOW YELLOW Clarity Urine CLOUDY CLEAR Specific [place] Urine 1.020 1.005-1.025 pH Urine 7.5 5.0-9.0 Protein Urine NEGATIVE NEG/TRACE mg/dL Glucose Urine UA NEGATIVE NEGATIVE mg/dL Bilirubin Urine NEGATIVE NEGATIVE Ketones Urine NEGATIVE NEGATIVE mg/dL Blood Urine NEGATIVE NEGATIVE Nitrite Urine NEGATIVE NEGATIVE Urobilinogen Urine 1.0 0.2-1.0 EU/dL Leukocyte Esterase Urine MODERATE NEGATIVE Urine Microscopic Indicated YES Performing Lab: see note ML - [facility] LB CT abdomen pelvis wo con Reviewed date:09/28/2024 07:53:59 PM Interpretation: Performing Lab: Notes/Report: Source Facility: [place] [address] CT Scan Report Signed Patient: DIANA BARRIGA MR#: [id number] : 1990 Acct:[id number] Age/Sex: 34 / F ADM Date: 09/28/24 Loc: ER Attending Dr: Ordering Physician: Stephanie Ramirez Date of Service: 09/28/24 Procedure(s): CT abdomen pelvis wo con Accession Number(s): [id number] cc: Domingo Das M.D. [place] [id number] Patient Name: DIANA BARRIGA MRN: [id number] date: 1990 Sex: F Assigned Patient Location: ER Current Patient Location: ER Accession/Order Number: [id number] Exam Date: 09/28/2024 15:52 Report Date: 09/28/2024 [...] Signed By: 09/28/24 1631 DD/ 1628 TD/TT: Swage Tender: [place] [address] CT Scan Report Signed Patient: RAMIN BARRIGA MR#: [id number] : 1990 Acct:[id number] Age/Sex: 34 / F ADM Date: 09/28/24 Loc: ER Attending Dr: Ordering Physician: Stephanie Ramirez Date of Service: 09/28/24 Procedure(s): CT abd omen pelvis wo con Accession Number(s): [id number] cc: Domingo Das M.D. [place] [id number] Patient Name: DIANA BARRIGA MRN: [facility]:[id number] date: 1990 Sex: F Assigned Patient Location: ER Current Patient Location: ER Accession/Order Numb er: [id number] Exam Date: 15:52 Report Date: 09/28/2024 16:28 [...] Signed By: 09/28/24 1631 DD/ 1628 TD/TT: Swage Tender: Urine Culture, Routine Reviewed date:10/03/2024 06:15:29 PM [...] Status Urine Culture, Routine [facility] Urine Culture, Routine Organism: Gram negative christelle : O:ECMS Isolated O:GNR Isolated Organism: 1.1 Antibiotic Interpretation ANASTASIA Status Urine Culture, Routine [address] [place], [place] [id number] Urine Culture, Routine Organism: Gram negative christelle : O:ECMS Isolated O:GNR Isolated Organism: 1.1 Antibiotic Interpretation ANASTASIA Status Urine Culture, Routine Button Sewer Hand: Arie Menjivar PhD, Phone: [phone] Urine Culture, Routine Organism: Gram negative christelle [...] LC - [facility] LB SEE REPORT - Sign Carpenter Id information not found for OBX-specific insurance sales producer legend Manual Differential Reviewed date:09/28/2024 07:53:59 PM Interpretation: Performing Lab: Notes/Report: [facility] , Segmented Neutrophils % Manual 37.0 [...] 3/uL Performing Lab: see note ML - [facility] LB URINE MICROSCOPIC ONLY Reviewed date:09/28/2024 07:53:59 PM Interpretation: Performing Lab: Notes/Report: [facility] , WBC Urine 50-75 NONE SEEN #/HPF RBC Urine 2-5 0-2 #/HPF Bacteria Urine LARGE NONE SEEN #/HPF Mucus Urine MODERATE NONE SEEN Squamous Epithelial Cell Urine FEW NONE/RARE #/LPF Crystals Seen? None Seen None Seen #/HPF Cast Seen? NONE SEEN NONE SEEN #/LPF Urine Culture Indicated YES Performing Lab: see note ML - [facility] LB UA (CLEAN or CATCH) WEIGHER AND MIXER or M ICRO IF IND. Reviewed date:09/28/2024 07:53:59 PM Interpretation: Performing Lab: Notes/Report: [facility] , Color Urine LT. YELLOW YELLOW Clarity Urine SL CLOUDY CLEAR Specific [place] Urine 1.020 1.005-1.025 pH Urine 6.5 5.0-9.0 Protein Urine 30 NEG/TRACE mg/dL Glucose Urine UA NEGATIVE NEGATIVE mg/dL Bilirubin Urine NEGATIVE NEGATIVE Ketones Urine NEGATIVE NEGATIVE mg/dL Blood Urine MODERATE NEGATIVE Nitrite Urine POSITIVE NEGATIVE Urobilinogen Urine 1.0 0.2-1.0 EU/dL Leukocyte Esterase Urine SMALL NEGATIVE Urine Microscopic Indicated YES Performing Lab: see note ML - [facility] LB PROF 14(COMP METB) Reviewed date:09/28/2024 07:53:59 PM Interpretation: Performing Lab: Notes/Report: [facility] , Sodium 143 136-145 mmol/L Potassium [...] 1.0 Performing Lab: see note ML - [facility] LB CBC AUTO DIFF Reviewed date:09/28/2024 07:53:59 PM Interpretation: Performing Lab: Notes/Report: [facility] , White Blood Count 5.7 4.0-11.0 [...] 8.9 9.5-13.5 fL Performing Lab: see note - [facility] LB FL VOIDING URETHROCYSTOGRAM S AND I Reviewed date:01/22/2025 03:38:47 PM Interpretation: Performing Lab: Notes/Report: EXAMINATION: Performed at: [facility] [address] [address] Performed at: [facility] SURGICAL PROCEDUR ES Reviewed date:03/28/2025 04:31:58 PM Interpretation: Performing Lab: Notes/Report: Radiology exam is complete. No Radiologist dictation. Please follow up with ordering provider. Performed at: [facility] [address] Performed at: IGP,Aptima HPV,Age Gdln Reviewed date:04/12/2025 09:12:34 PM Interpretation: Performing Lab: Notes/Report: SPATPRATEEK-ALONE VAGINA [facility] , Age Gdln ACOG Testing Note . TESTS RESULT FLAG UNITS REF RANGE LAB Clinician Provided Cytology Information Source.............Az fly No. of containers..01 ThinPrep Vial Age Algo ACOG Radha... 30-65 01 FLAG LEGEND: L-Low Normal,H-High Normal,LL-Alert Low,HH-Alert High <-Panic Low,>-Panic High,A-Abnormal,AA-Cr itical Abnormal Performed at: 01 =G [facility] [address] [place] [address] Shereen Caal MD, IGP, Aptima HPV, rfx 16/18,45 Note . TESTS RESULT FLAG UNITS REF RANGE LAB DIAGNOSIS: [A] 02 EPITHELIAL CELL ABNORMALITY. ATYPICAL SQUAMOUS CELLS OF UNDETERMINED SIGNIFICANCE (ASC-US). Recommendation: [A] 02 Suggest follow up as clinically appropriate. Specimen adequacy: 02 Satisfactory for evaluation. Performed by: 02 Tamiko Barrow, Academic Physician ([facility]) Electronically . Capri Boston MD, Pathologist . 02 Pathologist [...] Low,>-Panic High,A-Abnormal,AA-Cr itical Abnormal Performed at: [address] [place] [address] Shereen Caal MD, HPV Aptima Negative Negative This nucleic acid amplification test detects fourteen high- risk HPV types (16,18,31,33,35,39,45 ,51,52,56,58,59,66,68 ) without differentiation. Performed at: = - [facility] [address] [address] [id number] Button Sewer Hand: Shereen Caal MD, Phone: [phone] Performed at: [facility] - [address] [place] [id number] Button Sewer Hand: Shereen Caal MD, Phone: [phone] Performing Lab: see note LC - [facility] LB CBC AUTO DIFF Reviewed date:05/06/2025 03:21:39 PM Interpretation: Performing Lab: Notes/Report: [facility] , White Blood Count 6.8 4.0-11.0 [...] Performing Lab: see note ML - [facility] LB PROF CHEM 8 (BAS METB) Reviewed date:05/06/2025 03:21:39 PM Interpretation: Performing Lab: Notes/Report: [facility] , Sodium 144 136-145 mmol/L Potassium [...] mg/dL Performing Lab: see note ML - [facility] LB UA (CLEAN or CATCH) WEIGHER AND MIXER or M ICRO IF IND. Reviewed date:05/06/2025 03:21:39 PM Interpretation: Performing Lab: Notes/Report: [facility] , Color Urine LT. YELLOW YELLOW Clarity Urine CLOUDY CLEAR Specific [place] Urine 1.015 1.005-1.025 pH Urine 7.5 5.0-9.0 Protein Urine NEGATIVE NEG/TRACE mg/dL Glucose Urine UA NEGATIVE NEGATIVE mg/dL Bilirubin Urine NEGATIVE NEGATIVE Ketones Urine NEGATIVE NEGATIVE mg/dL Blood Urine TRACE-I NEGATIVE Nitrite Urine NEGATIVE NEGATIVE Urobilinogen Urine 0.2 0.2-1.0 EU/dL Leukocyte Esterase Urine MODERATE NEGATIVE Urine Microscopic Indicated YES Performing Lab: see note ML - [facility] LB URINE MICROSCOPIC ONLY Reviewed date:05/06/2025 03:21:39 PM Interpretation: Performing Lab: Notes/Report: [facility] , WBC Urine 5-10 NONE SEEN #/HPF RBC Urine 2-5 0-2 #/HPF Bacteria Urine LARGE NONE SEEN #/HPF Mucus Urine NONE SEEN NONE SEEN Squamous Epithelial Cell Urine FEW NONE/RARE #/LPF Crystals Seen? None Seen None Seen #/HPF Cast Seen? NONE SEEN NONE SEEN #/LPF Urine Culture [place] [place] Performing Lab: see note ML - [facility] LB Urine Culture - [facility] [place] Reviewed date:05/08/2025 02:50:28 PM Interpretation: Performing Lab: Notes/Report: [facility] , Urine Culture - [facility] [place] See Below For Report Urine Culture - [facility] [place] Testing performed at [facility] O:CITFRC Isolated Urine Culture - [facility] [place] Organism Comments Organism: 1.1 Antibiotic Interpretation ANASTASIA Status Urine Culture - [facility] [place] [address] [place] [address] Urine Culture - [facility] Testing performed at [facility] O:CITFRC Isolated Urine Culture - [facility] Organism Comments Organism: 1.1 Antibiotic Interpretation ANASTASIA Status Urine Culture - [facility] See Below For Report Urine Culture - [facility] Testing performed at [facility] O:CITFRC Isolated Urine Culture - [facility] Organism Comments Organism: 1.1 Antibiotic Interpretation ANASTASIA Status Urine Culture - [facility] See Below For Report Urine Culture - [facility] Testing performed at [facility] O:CITFRC Isolated Urine Culture - [facility] Organism Comments Organism: 1.1 Antibiotic Interpretation ANASTASIA Status Urine Culture - [facility] 75,000 CFU/ML Urine Culture - [facility] Testing performed at [facility] O:CITFRC Isolated Urine Culture - [facility] Organism Comments Organism: 1.1 Antibiotic Interpretation ANASTASIA Status Urine Culture - [facility] See Below For Report Urine Culture - [facility] Testing performed at [facility] O:CITFRC Isolated Urine Culture - [facility] Organism Comments Organism: 1.1 Antibiotic Interpretation ANASTASIA Status Urine Culture - [facility] Amikacin S F Urine Culture - [facility] Testing performed at [facility] O:CITFRC Isolated Urine Culture - [facility] Organism Comments Organism: 1.1 Antibiotic Interpretation ANASTASIA Status Urine Culture - [facility] Aztreonam I F Urine Culture - [facility] Testing performed at [facility] O:CITFRC Isolated Urine Culture - [facility] Organism Comments Organism: 1.1 Antibiotic Interpretation ANASTASIA Status Urine Culture - [facility] Ceftazidime I F Urine Culture - [facility] Testing performed at [facility] O:CITFRC Isolated Urine Culture - [facility] Organism Comments Organism: 1.1 Antibiotic Interpretation ANASTASIA Status Urine Culture - [facility] Ceftazidime/Avibact am S F Urine Culture - [facility] Testing performed at [facility] O:CITFRC Isolated Urine Culture - [facility] Organism Comments Organism: 1.1 Antibiotic Interpretation ANASTASIA Status Urine Culture - [facility] Ciprofloxacin S F Urine Culture - [facility] Testing performed at [facility] O:CITFRC Isolated Urine Culture - [facility] Organism Comments Organism: 1.1 Antibiotic Interpretation ANASTASIA Status Urine Culture - [facility] Ertapenem S F Urine Culture - [facility] Testing performed at [facility] O:CITFRC Isolated Urine Culture - [facility] Organism Comments Organism: 1.1 Antibiotic Interpretation ANASTASIA Status Urine Culture - [facility] Gentamicin S F Urine Culture - [facility] Testing performed at [facility] O:CITFRC Isolated Urine Culture - [facility] Organism Comments Organism: 1.1 Antibiotic Interpretation ANASTASIA Status Urine Culture - [facility] Levofloxacin S F Urine Culture - [facility] Testing performed at [facility] O:CITFRC Isolated Urine Culture - [facility] Organism Comments Organism: 1.1 Antibiotic Interpretation ANASTASIA Status Urine Culture - [facility] Meropenem S F Urine Culture - [facility] Testing performed at [facility] O:CITFRC Isolated Urine Culture - [facility] Organism Comments Organism: 1.1 Antibiotic Interpretation ANASTASIA Status Urine Culture - [facility] Nitrofurantoin S F Urine Culture - [facility] Testing performed at [facility] O:CITFRC Isolated Urine Culture - [facility] Organism Comments Organism: 1.1 Antibiotic Interpretation ANASTASIA Status Urine Culture - [facility] Tetracycline S F Urine Culture - [facility] Testing performed at [facility] O:CITFRC Isolated Urine Culture - [facility] Organism Comments Organism: 1.1 Antibiotic Interpretation ANASTASIA Status Urine Culture - [facility] Tigecycline S F Urine Culture - [facility] Testing performed at [facility] O:CITFRC Isolated Urine Culture - [facility] Organism Comments Organism: 1.1 Antibiotic Interpretation ANASTASIA Status Urine Culture - [facility] Tobramycin S F Urine Culture - [facility] Testing performed at [facility] O:CITFRC Isolated Urine Culture - [facility] Organism Comments Organism: 1.1 Antibiotic Interpretation ANASTASIA Status Urine Culture - [facility] Cefepime S F Urine Culture - [facility] Testing performed at [facility] O:CITFRC Isolated Urine Culture - [facility] Organism Comments Organism: 1.1 Antibiotic Interpretation ANASTASIA Status Urine Culture - [facility] Ceftriaxone I F Urine Culture - [facility] Testing performed at [facility] O:CITFRC Isolated Urine Culture - [facility] Organism Comments Organism: 1.1 Antibiotic Interpretation ANASTASIA Status Urine Culture - [facility] Piperacillin/Tazoba ctam I F Urine Culture - [facility] Testing performed at [facility] O:CITFRC Isolated Urine Culture - [facility] Organism Comments Organism: 1.1 Antibiotic Interpretation ANASTASIA Status Urine Culture - [facility] Trimethoprim/Sulfa R F Urine Culture - [facility] Testing performed at [facility] O:CITFRC Isolated Urine Culture - [facility] Organism Comments Organism: 1.1 Antibiotic Interpretation ANASTASIA Status Performing Lab: see note ML - [facility] LB SEE REPORT - Sign Carpenter Id information not found for 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 Date of Service: 05/05/25 Procedure(s): CT abdomen pelvis wo con Accession Number(s): [id number] cc: Domingo Das M.D. [place] [address] Patient Name: DIANA BARRIGA MRN: [id number] date: 1990 Sex: F Assigned Patient Location: ER Current Patient Location: ER Accession/Order Number: [id number] Exam Date: 05/05/2025 21:09 Report Date: 05/05/2025 [...] Conley M.D. 05/05/2025 9:15 PM Dictation Location: [place] [address] Electronically authenticated by: [id number] Y Date: 05/05/2025 21:15 Dictated By: Enrique Conley M.D. Signed By: 05/05/252117 DD/ 14 TD/TT: Swage Tender: [place] [address] CT Scan Report Signed Patient: RAMIN BARRIGA MR#: [id number] : 1990 Acct:[id number] Age/Sex: 34 / F ADM Date: 05/05/25 Loc: ER Attending Dr: Ordering Physician: Herman Hay D.O. Date of Service: 05/05/25 Procedure(s): CT abd omen pelvis wo con Accession Number(s): [id number] cc: Domingo Das M.D. [place] [id number] Patient Name: DIANA BARRIGA MRN: [id number] date: 1990 Sex: F Assigned Patient Location: ER Current Patient Location: ER Accession/Order Numb er: [id number] Exam Date: 05/05/2025 21:09 Report Date: 05/05/2025 [...] i s dependent atelectasis. ABDOMEN: Liver: Within sari l limits. Bile Ducts: Normal caliber. Gallbladder: Previou [...] Conley M.D. 05/05/2025 9:15 PM Dictation Location: [place] [address] Electronically authenticated by: [id number] Y Date: 05/05/2025 21:15 Dictated By: Enrique Conley M.D. Signed By: 05/05/252117 DD/ 14 TD/TT: Swage Tender: JAIMIE by IFA Reviewed date:05/28/2025 07:56:46 PM Interpretation: Performing Lab: Notes/Report: [facility] , Antinuclear Antibodies, IFA Negative . Negative <1:80 Borderline 1:80 Positive >1:80 ICAP nomenclature: AC-0 For more information about Hep-2 cell patterns use ANApatterns.org, the official website for the International Consensus on Antinuclear Antibody (JAIMIE) Patterns (ICAP). Performed at: [address] [id number] Button Sewer Hand: Travis Menjivar PhD, Phone: [phone] Performing Lab: see note - [facility] LB CRP Reviewed date:05/24/2025 05:16:43 PM Interpretation: Performing Lab: Notes/Report: [facility] , C Reactive Protein <0.50 <=0.50 mg/dL Performing Lab: see note - [facility] LB RHEUMATOID FACTOR Reviewed date:05/28/2025 07:56:46 PM Interpretation: Performing Lab: Notes/Report: [facility] , Rheumatoid Factor (RF) <10.0 <14.0 IU/mL Performing Lab: see note [facility] URIC ACID SERUM Reviewed date:05/24/2025 05:16:43 PM Interpretation: Performing Lab: Notes/Report: [facility] , Uric Acid 4.8 2.6-6.0 mg/dL Performing Lab: see note - [facility] LB Antistreptolysin O Ab Reviewed date:05/28/2025 07:56:46 PM Interpretation: Performing Lab: Notes/Report: [facility] , Antistreptolysin O Ab 473.7 0.0-200.0 IU/mL Performed at: [address] [id number] Button Sewer Hand: Travis Menjivar PhD, Phone: [phone] Performing Lab: see note - [facility] LB MR lumbar spine wo con Reviewed date:05/24/2025 05:16:43 PM Interpretation: Performing Lab: Notes/Report: Source Facility: [facility]-[address] [place] [address] [place] [address] Magnetic Resonance Report Signed Patient: DIANA BARRIGA MR#: [id number] : 1990 Acct:[id number] Age/Sex: 34 / F ADM Date: 05/24/25 Loc: MRI Attending Dr: Domingo Das M.D. Ordering Physician: Domingo Das M.D. Date of Service: 05/24/25 Procedure(s): MR lumbar spine wo con Accession Number(s): [id number] cc: Domingo Das M.D. [address] [address] Patient Name: DIANA BARRIGA MRN: [id number] date: 1990 Sex: F Assigned Patient Location: MRI Current Patient Location: MRI Accession/Order Number: [id number] Exam Date: 05/24/2025 15:59 Report Date: 05/24/2025 16:09 At the request of: DOMINGO DAS MD Procedure: MR lumbar spine wo con MRI lumbar spine performed without contrast INDICATION: Lumbar radiculopathy COMPARISON: X-rays lumbar spine 03/28/2025 FINDINGS: Lumbar vertebral heights, alignment and bone marrow signal is unremarkable. There is mild intervertebral space narrowing L4-5. Conus medullaris terminates normally at superior plate of L1. Paraspinal soft tissues are unremarkable. T12-L3: No significant disease, disc protrusion, central canal or neural from narrowing. L3-4: Mild facet arthropathy. This causes mild right neural foraminal narrowing. Otherwise, no significant disc disease, disc protrusion central canal or left neural foraminal narrowing L4-5: Circumferential disc bulge with transverse band of T2 hyperintense suggestive of focal fissure. There is moderate severe facet arthropathy. Swyo-kj-ynzecykn right neural foraminal narrowing and mild left neural foraminal narrowing. Canal is patent. L5-S1: Mild to moderate facet arthropathy. Otherwise no significant disease central canal or neural foraminal narrowing. MR/MR lumbar spine wo con IMPRESSION: Overall mild degenerative changes notably L4-5 predominantly caused by posterior element degenerative changes level. Please see body report for level by level details. Impression dictated by: Jaime Mcintyre M.D. 05/24/2025 4:09 PM Dictation Location: [place] [address] Electronically authenticated by: [id number] Y Date: 05/24/2025 16:09 Dictated By: Jaime Mcintyre M.D. Signed By: 05/24/25 1611 DD/ 1609 TD/TT: Swage Tender: [place] [address] Magnetic Resonance Report Signed Patient: RAMIN BARRIGA MR#: [id number] : 1990 Acct:[id number] Age/Sex: 34 / F ADM Date: 05/24/25 Loc: MRI Attending Dr: Radha Das M.D. Ordering Physician: Domingo Das M.D. Date of Service: 05/24/25 Procedure(s): MR lum bar spine wo con Accession Number(s): [id number] cc: Domingo Das M.D. [place] [address] Patient Name: DIANA BARRIGA MRN: [id number] date: 1990 Sex: F Assigned Patient Location: MRI Current Patient Location: MRI Accession/Order Numb er: [id number] Exam Date: 05/24/2025 15:59 Report Date: 05/24/2025 16:09 At the request of: DOMINGO DAS MD Procedure: MR lumbar spine wo con MRI lumbar spine performed without contrast INDICATION: Lumbar radiculopathy COMPARISON: X-rays lumbar spine 03/28/2025 FINDINGS: Lumbar vertebral heights, alignment and bone marrow signal is unremarkable. There is mild intervertebral space narrowing L4-5. Conus medullaris terminate s normally at superior plate of L1. Paraspinal soft tissues are unremarkable. T12-L3: No significa nt disease, disc protrusion, central canal or neural from narrowing. L3-4: Mild facet arthropathy. This causes mild right neural foraminal narrowing. Otherwise , no significant disc disease, disc protrusion central canal or left neural foraminal narrowing L4-5: Circumferentia l disc bulge with transverse band of T2 hyperintense suggestive of focal fissure. There is moderate severe facet arthropathy. Igwi-qs-xnkuomui rig ht neural foraminal narrowing and mild left neural foraminal narrowing. Canal is patent. L5-S1: Mild to moder ate facet arthropathy. Otherwise no significant disease central canal or gil ral foraminal narrowing. M R/MR lumbar spine wo con IMPRESSION: Overall mild degenerative changes notably L4-5 predominantly caused by posterior element degenerative changes level. Please see body report for level by level details. Impression dictated by: Jaime Mcintyre M.D. 05/24/2025 4:09 PM Dictation Location: [place] [address] Electronically authenticated by: [id number] Y Date: 05/24/2025 16:09 Dictated By: Ladonna Mcintyre M.D. Signed By: 05/24/25 1611 DD/ 1609 TD/TT: Swage Tender: CBC AUTO DIFF Reviewed date:01/22/2025 03:38:47 PM Interpretation: Performing Lab: Notes/Report: [facility] , White Blood Count 8.2 4.0-11.0 [...] Performing Lab: see note ML - [facility] LB LACTATE or LACTIC ACID Reviewed date:01/22/2025 03:38:47 PM Interpretation: Performing Lab: Notes/Report: [facility] , Lactate/Lactic Acid 1.3 0.4-2.0 mmol/L Performing Lab: see note ML - [facility] LB PROF 14(COMP METB) Reviewed date:01/22/2025 03:38:47 PM Interpretation: Performing Lab: Notes/Report: [facility] , Sodium 139 136-145 mmol/L Potassium [...] Performing Lab: see note ML - [facility] LB HCG Qualitative* Reviewed date:01/22/2025 03:38:47 PM Interpretation: Performing Lab: Notes/Report: [facility] , HCG Qualitative NEGATIVE NEGATIVE Performing Lab: see note ML - [facility] LB UA Micro, reflex to culture Reviewed date:01/22/2025 03:38:47 PM Interpretation: Performing Lab: Notes/Report: [facility] , Color Urine LT. YELLOW YELLOW Clarity Urine CLOUDY CLEAR Specific [place] Urine 1.010 1.005-1.025 pH Urine 6.5 5.0-9.0 [...] SEEN NONE SEEN #/LPF Urine Culture Indicated YES-[facility] Performing Lab: see note ML - [facility] LB Urine Culture - [facility] Reviewed date:01/24/2025 03:36:36 PM Interpretation: Performing Lab: Notes/Report: [facility] , Urine Culture - [facility] See Below For Report Urine Culture - [facility] Testing performed at [facility] O:ESCCOL Isolated Urine Culture - [facility] Golden Count Organism: 1.1 Antibiotic Interpretation ANASTASIA Status Urine Culture - [facility] [address] [place] [address] [place] [address] Urine Culture - [facility] Testing performed at [facility] O:ESCCOL Isolated Urine Culture - [facility] Golden Count Organism: 1.1 Antibiotic Interpretation ANASTASIA Status Urine Culture - [facility] See Below For Report Urine Culture - [facility] Testing performed at [facility] O:ESCCOL Isolated Urine Culture - [facility] Golden Count Organism: 1.1 Antibiotic Interpretation ANASTASIA Status Urine Culture - [facility] See Below For Report Urine Culture - [facility] Testing performed at [facility] O:ESCCOL Isolated Urine Culture - [facility] Golden Count Organism: 1.1 Antibiotic Interpretation ANASTASIA Status Urine Culture - [facility] >100,000 Urine Culture - [facility] Testing performed at [facility] O:ESCCOL Isolated Urine Culture - [facility] Golden Count Organism: 1.1 Antibiotic Interpretation ANASTASIA Status Urine Culture - [facility] See Below For Report Urine Culture - [facility] Testing performed at [facility] O:ESCCOL Isolated Urine Culture - [facility] Golden Count Organism: 1.1 Antibiotic Interpretation ANASTASIA Status Urine Culture - [facility] Amikacin S F Urine Culture - [facility] Testing performed at [facility] O:ESCCOL Isolated Urine Culture - [facility] Golden Count Organism: 1.1 Antibiotic Interpretation ANASTASIA Status Urine Culture - [facility] Amoxicillin/Clavula chacho S F Urine Culture - [facility] Testing performed at [facility] O:ESCCOL Isolated Urine Culture - [facility] Golden Count Organism: 1.1 Antibiotic Interpretation ANASTASIA Status Urine Culture - [facility] Ampicillin S F Urine Culture - [facility] Testing performed at [facility] O:ESCCOL Isolated Urine Culture - [facility] Golden Count Organism: 1.1 Antibiotic Interpretation ANASTASIA Status Urine Culture - [facility] Aztreonam S F Urine Culture - [facility] Testing performed at [facility] O:ESCCOL Isolated Urine Culture - [facility] Golden Count Organism: 1.1 Antibiotic Interpretation ANASTASIA Status Urine Culture - [facility] Ceftazidime S F Urine Culture - [facility] Testing performed at [facility] O:ESCCOL Isolated Urine Culture - [facility] Golden Count Organism: 1.1 Antibiotic Interpretation ANASTASIA Status Urine Culture - [facility] Ceftazidime/Avibact am S F Urine Culture - [facility] Testing performed at [facility] O:ESCCOL Isolated Urine Culture - [facility] Golden Count Organism: 1.1 Antibiotic Interpretation ANASTASIA Status Urine Culture - [facility] Ceftolozane/Tazobac lewis S F Urine Culture - [facility] Testing performed at [facility] O:ESCCOL Isolated Urine Culture - [facility] Golden Count Organism: 1.1 Antibiotic Interpretation ANASTASIA Status Urine Culture - [facility] Ciprofloxacin S F Urine Culture - [facility] Testing performed at [facility] O:ESCCOL Isolated Urine Culture - [facility] Golden Count Organism: 1.1 Antibiotic Interpretation ANASTASIA Status Urine Culture - [facility] Ertapenem S F Urine Culture - [facility] Testing performed at [facility] O:ESCCOL Isolated Urine Culture - [facility] Golden Count Organism: 1.1 Antibiotic Interpretation ANASTASIA Status Urine Culture - [facility] Gentamicin S F Urine Culture - [facility] Testing performed at [facility] O:ESCCOL Isolated Urine Culture - [facility] Golden Count Organism: 1.1 Antibiotic Interpretation ANASTASIA Status Urine Culture - [facility] Levofloxacin S F Urine Culture - [facility] Testing performed at [facility] O:ESCCOL Isolated Urine Culture - [facility] Golden Count Organism: 1.1 Antibiotic Interpretation ANASTASIA Status Urine Culture - [facility] Meropenem S F Urine Culture - [facility] Testing performed at [facility] O:ESCCOL Isolated Urine Culture - [facility] Golden Count Organism: 1.1 Antibiotic Interpretation ANASTASIA Status Urine Culture - [facility] Meropenem/Vaborbact am S F Urine Culture - [facility] Testing performed at [facility] O:ESCCOL Isolated Urine Culture - [facility] Golden Count Organism: 1.1 Antibiotic Interpretation ANASTASIA Status Urine Culture - [facility] Nitrofurantoin S F Urine Culture - [facility] Testing performed at [facility] O:ESCCOL Isolated Urine Culture - [facility] Golden Count Organism: 1.1 Antibiotic Interpretation ANASTASIA Status Urine Culture - [facility] Tetracycline S F Urine Culture - [facility] Testing performed at [facility] O:ESCCOL Isolated Urine Culture - [facility] Golden Count Organism: 1.1 Antibiotic Interpretation ANASTASIA Status Urine Culture - [facility] Tigecycline S F Urine Culture - [facility] Testing performed at [facility] O:ESCCOL Isolated Urine Culture - [facility] Golden Count Organism: 1.1 Antibiotic Interpretation ANASTASIA Status Urine Culture - [facility] Tobramycin S F Urine Culture - [facility] Testing performed at [facility] O:ESCCOL Isolated Urine Culture - [facility] Golden Count Organism: 1.1 Antibiotic Interpretation ANASTASIA Status Urine Culture - [facility] Ampicillin/Sulbactam S F Urine Culture - [facility] Testing performed at [facility] O:ESCCOL Isolated Urine Culture - [facility] Golden Count Organism: 1.1 Antibiotic Interpretation ANASTASIA Status Urine Culture - [facility] Cefazolin S F Urine Culture - [facility] Testing performed at [facility] O:ESCCOL Isolated Urine Culture - [facility] Golden Count Organism: 1.1 Antibiotic Interpretation ANASTASIA Status Urine Culture - [facility] Cefepime S F Urine Culture - [facility] Testing performed at [facility] O:ESCCOL Isolated Urine Culture - [facility] Golden Count Organism: 1.1 Antibiotic Interpretation ANASTASIA Status Urine Culture - [facility] Ceftriaxone S F Urine Culture - [facility] Testing performed at [facility] O:ESCCOL Isolated Urine Culture - [facility] Golden Count Organism: 1.1 Antibiotic Interpretation ANASTASIA Status Urine Culture - [facility] Cefuroxime S F Urine Culture - [facility] Testing performed at [facility] O:ESCCOL Isolated Urine Culture - [facility] Golden Count Organism: 1.1 Antibiotic Interpretation ANASTASIA Status Urine Culture - [facility] Piperacillin/Tazoba ctam S F Urine Culture - [facility] Testing performed at [facility] O:ESCCOL Isolated Urine Culture - [facility] Golden Count Organism: 1.1 Antibiotic Interpretation ANASTASIA Status Urine Culture - [facility] Trimethoprim/Sulfa S F Urine Culture - [facility] Testing performed at [facility] O:ESCCOL Isolated Urine Culture - [facility] Golden Count Organism: 1.1 Antibiotic Interpretation ANASTASIA Status Performing Lab: see note ML - [facility] LB SEE REPORT - Sign Carpenter Id 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 Ordering Physician: Domingo Das M.D. Date of Service: 03/28/25 Procedure(s): XR lumbar spine min 4V Accession Number(s): [id number] cc: Domingo Das M.D. [place] [address] Patient Name: DIANA BARRIGA MRN: [id number] date: 1990 Sex: F Assigned Patient Location: [facility] Current Patient Location: [facility] Accession/Order Number: [id number] Exam Date: 03/28/2025 08:29 Report Date: 03/28/2025 [...] Celis M.D. 03/28/2025 8:35 AM Dictation Location: [place] [address] Electronically authenticated by: [id number] Y Date: 03/28/2025 08:35 Dictated By: Imani Celis M.D. Signed By: 03/28/2538 DD/ 4 TD/TT: Swage Tender: [place] [address] XRay Report Signed Patient: RAMIN BARRIGA MR#: [id number] : 1990 Acct:[id number] Age/Sex: 34 / F ADM Date: 03/28/25 Loc: RAD Attending Dr: Radha Das M.D. Ordering Physician: Domingo Das M.D. Date of Service: 03/28/25 Procedure(s): XR lum bar spine min 4V Accession Number(s): [id number] cc: Domingo Das M.D. [place] [address] Patient Name: DIANA BARRIGA MRN: [id number] date: 1990 Sex: F Assigned Patient Location: [facility] Current Patient Location: [facility] Accession/Order Numb er: [id number] Exam Date: 03/28/2025 08:29 Report Date: 03/28/2025 [...] Celis M.D. 03/28/2025 8:35 AM Dictation Location: [place] [address] Electronically authenticated by: [id number] Y Date: 03/28/2025 08:35 Dictated By: Imani Celis M.D. Signed By: 03/28/25837 DD/ 4 TD/TT: Swage Tender: Reason For Referral Diagnosis 1 Pyelonephritis (N12) Referral Organization [facility] Referring Provider First Name Kendrick Referring Provider Last Name Arnav Referring Provider [facility] Referred Organization [facility] Fan Ryan selena Referred Provider [facility] Referred Address [address],[facility] [address],[place], [place],[address], Referred Provider Specialty Urology Referral Priority Routine Diagnosis 1 Low back pain at [facility] (M54.50) Referral Organization [facility] Referring Provider First Name Kendrick Referring Provider Last Name Arnav Referring Provider [facility] Referred Provider [facility], Physical Therap y Referred Provider Specialty Physical The rapist Referral Priority Routine Diagnosis 1 Arthralgia (M25.50) Referral Organization [facility] Referring Provider First Name Kendrick Referring Provider Last Name [facility] Referring Provider [facility] Referred Provider Keith Craig Referred Provider Specialty Rheumatology Referral Priority Routine Medications Medication SIG (Take, Route, Frequency, Duration) Notes Start Date End Date Status Promethazine HCl 25 MG 1 tablet as neede d Orally q6h for 5 days PRN 01/23/2025 Active tiZANidine HCl 4 MG 2 tabs Orally qhs fo r 30 days 03/15/2025 Active Mupirocin 2 % 1 application Instructional Consultant ally Twice a day for 5 days 06/07/2025 Active Potassium Chloride ER 10 MEQ 1 tablet with food Orally Twice a day for 30 days 05/25/2025 Active Meloxicam 15 MG 1 tablet Orally Once a day for 30 days 03/15/2025 Active Ebncrpqjsd-Dpxo-Qrmhgmdypl 20-2-10 % as directed Externally 06/16/2025 Activ e Methenamine Hippurate 1 GM 1 tablet Oral ly Twice a day for 30 days 01/24/2025 Active Ketoprofen 10 % as directed Externally 06/16/2025 Active Doxycycline Monohydrate 100 MG 1 tablet [...] monthly (1 point) Points 1 Interpretation Negative Section Notes: . . Problems Problem Type SNOMED Code ICD Code Onset Dates Problem Status W/U Status Risk Notes Problem 84461770 Essential (primary) hypertension (I10) Active confirmed Problem 374242850 Gastritis and duodenitis (535.50) Active confirmed Problem 686517769 Bipolar disorder , unspecified (F31.9) Active confirmed Problem Hypomagnesemia (111733541) Hypomagnesemia (E83.42) Active confirmed Problem 17424437 Anxiety disorder , unspecified (F41.9) Active confirmed Problem 842567737 Insomnia, unspecified (G47.00) Active confirmed Problem 18169436 Other chronic pa in (G89.29) Active confirmed Problem Streptococcal pharyngitis (41409948) Streptococcal pharyngitis (J02.0) Active confirmed Problem 262126969 Calculus of kidn ey (N20.0) Active confirmed Problem Sprain of calcaneofibular ligament (18183233) Sprain of calcaneofibular ligament of left ankle, initial encounter (S93.412A) Active confirmed Problem Abdominal pain (01333611) Abdominal pain (R10.9) Active confirmed Problem Gastroesophageal reflux disease (388077220) GERD (gastroesophageal reflux disease) (K21.9) Active confirmed Problem Cervical radiculopathy (74183075) Cervical radiculopathy (M54.12) Active confirmed Problem Lumbar radiculopathy (988265494) Lumbar radiculopathy (M54.16) Active confirmed Problem Arthralgia (50117486) Arthralgia (M25.50) Active confirmed Problem Kidney stone (02072495) Kidney stones (N20.0) Active confirmed Problem Nephrolithiasis (62314608) Nephrolithiasis (N20.0) Active confirmed Problem Gastritis (2994363) Gastritis (K29.70) Active c onfirmed Problem Well adult (019023096) Well adult (Z00.00) Active confirmed Problem Cellulitis (588824915) Cellulitis (L03.90) Active confirmed Problem Lesion of ulnar nerve (493923137) Ulnar nerve compression, right (G56.21) Active confirmed Problem Pyelonephritis (28548516) Pyelonephritis (N12) Active confirmed Problem Muscle spasm (53253693) Muscle spasm (M62.838) Active confirmed Problem Overweight (720147557) Over weight (E66.3) Active confirmed Problem Lesion of ulnar nerve (951313040) Ulnar nerve compression, left (G56.22) Active confirmed Problem Entrapment of left ulnar nerve (524477662882540) Entrapment of left ulnar nerve (G56.22) Active confirmed Problem Superficial thrombophlebitis (6698877) Superficial thrombophlebitis (I80.9) Active confirmed Problem Change of urinary catheter bag (procedure) (623885403) Catheter (urine) change required (Z46.6) Active confirmed Problem Mass of scalp (981743355) Mass of scalp (R22.0) Active confirmed Problem Lesion of ulnar nerve (749971012) Impingement of right ulnar nerve (G56.21) Active confirmed Problem Acute urinary tract infection (971872777) Acute UTI (N39.0) Active confirmed Problem Kidney stone (35678737) Kidney stone on right side (N20.0) Active confirmed Problem Retroflexion of uterus (15149802) Retroflexion of uterus (N85.4) Active confirmed Problem Disorder of kidney and/or ureter (622772739) Abnormal position of kidney (N28.89) Active confirmed Problem 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, 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 Problem Kidney stone (86133286) Altered urinary elimination pattern due to calculus of kidney (N20.0) Active confirmed Problem Muscle pain (47757781) Myalgia, unspecified site (M79.10) Active confirmed Problem Vesicoureteric reflux (disorder) (200225433) VUR (vesicoureteric reflux) (N13.70) Active confirmed Problem 43273243 Depression, unspecified (F32.A) Active confirmed Problem 430125530 Low back pain, unspecified (M54.50) Active confirmed Vital Signs Temperature 98.4 degrees Fahrenheit 06/29/2024 Blood pressure diastolic 78 mm Hg 06/16/2025 Height 66 in 06/16/2025 Blood pressure systolic 122 mm Hg 06/16/2025 Weight 184.2 lbs 06/16/2025 BMI 29.73 kg/m2 06/16/2025 Procedures Procedure Date Ordered Date Performed Result Body Sit e Voiding Cystourethrogram 01/05/2025 01/09/2025 N/A ESWL 01/24/2025 01/24/2025 N/A Ureteral Laser Lithotripsy 01/24/2025 01/24/2025 N/A Encounters Encounter Location Date Provider Diagnosis [facility] [address] [place] [address] 07/28/2024 Kendrick Hoy Myalgia, unspecified site M79.10 ; Low back pain, unspecified M54.50 and Muscle spasm M62.[address] [address] 09/30/2024 Kendrick Hoy Kidney stones N20.0 and Pyelonephritis N[address] [address] 01/24/2025 Adonis Sanchez VUR (vesicoureteric reflux) N13.70 ; Kidney stones N20.0 and UTI (urinary tract infection), uncomplicated N39.0 Urology [facility] [address] [place] [address] 03/16/2025 Adonis Sanchez Dysuria R30.0 and UT I (urinary tract infection), uncomplicated N39.0 Urology Fan [address] [place] [address] 11/24/2024 Adonis Sanchez Acute UTI N39.0 ; Ki dney stones N20.0 ; Pyelonephritis N12 and VUR (vesicoureteric reflux) N13.[address] [place] [address] [place] [address] 09/07/2024 Kendrick Hoy Well adult Z00.00 ; Hypomagnesemia E83.42 ; GERD (gastroesophageal reflux disease) K21.9 and Kidney stones N20.[address] [address] 06/29/2024 Kendrick Hoy Acute non-recurrent sinusitis, unspecified location J01.90 and Nasal congestion R09.[address] [address] 05/23/2025 Kendrick Hoy Arthralgia M25.[address] [address] 06/07/2025 Kendrick Hoy Cellulitis L03.[address] [address] 06/16/2025 Kendrick Hoy Cervical radiculopat hy M54.12 and Abdominal pain R10.[address] [address] 10/06/2024 Kendrick Hoy Acute UTI N39.[address] [address] 12/01/2024 Kendrick Hoy Acute UTI N39.0 ; UT I (urinary tract infection), uncomplicated N39.0 and Dysuria R30.[address] [address] 02/01/2025 Kendrick Hoy Kidney stones N20.[address] [address] 03/15/2025 Kendrick Hoy Essential (primary) hypertension I10 and Low back pain, unspecified M54.50 [facility] [address] [place] [place] [address] 03/23/2025 Kendrick Hoy Lumbar radiculopathy M54.16 [facility] [address] [place] [place] [place] [address] 05/28/2025 Kendrick Arnavy Arthralgia M25.[address] [place] [address] 01/26/2025 Adonis Sanchez Urology [address] [place] [address] 03/16/2025 Adonis Sanchez Urinary tract infect ion, site not specified N39.0 [facility] [address] [place] [place] [address] 03/28/2025 Kendrick Hoy Low back pain at multiple sites M54.50 [facility] [address] [place] [place] [address] 05/06/2025 Kendrick Hoy [facility] [address] [place] [place] [place] [address] 05/08/2025 Kendrick Hoy [facility] [address] [place] [place] [place] [address] 05/24/2025 Kendrick [facility] [address] [place] [place] [address] 09/07/2024 Kendrick Arnavy Pyelonephritis N12 a nd Kidney stones N20.0 [facility] [address] [place] [place] [address] 09/08/2024 Kendrick Hoy [facility] [address] [place] [place] [facility] [address] 10/03/2024 Kendrick Das [facility] [address] [place] [address] 01/05/2025 Adonis Sanchez VUR (vesicoureteric reflux) N13.70 [facility] [address] [place] [place] [address] 01/23/2025 Kendrick Das [facility] [address] [place] [place] [address] 01/24/2025 Kendrick Das [facility] [address] [place] [place] [place] [address] 06/29/2024 Kendrick Das [facility] [address] [place] [place] [place] [address] 07/28/2024 Kendrick Das [facility] [address] [place] [place] [place] [address] 07/29/2024 Kendrick Das Assessments Encounter Date Diagnosis (ICD Code) Assessment Notes Treatment Notes Treatment Clinical Notes Section Notes 09/07/2024 Hypomagnesemia (ICD-10 - E83.42) 09/07/2024 Well adult (ICD-10 - Z00.00) 07/28/2024 Myalgia, unspecified site (ICD-10 - M79.10) [...] until they are finished. You can use cabm-mwj-hpwogeg acetaminophen or ibuprofen if needed for pain. [...] - M54.16) 05/23/2025 Arthralgia (ICD-10 - M25.50) 06/07/2025 Cellulitis (ICD-10 - L03.90) 06/16/2025 Abdominal pain (ICD-10 - R10.9) 06/16/2025 Cervical radiculopathy (ICD-10 - M54.12) 09/07/2024 Kidney stones (ICD-10 - N20.0) 09/07/2024 Pyelonephritis (ICD-10 - N12) 01/05/2025 VUR (vesicoureteric reflux) (ICD-10 - N13.70) 03/16/2025 Urinary tract infection, site not specified (ICD-10 - N39.0) 03/28/2025 Low back pain at multiple sites (ICD-10 - M54.50) 05/28/2025 Arthralgia (ICD-10 - M25.50) 06/29/2024 Acute non-recurrent sinusitis, unspecified location (ICD-10 - J01.90) Rest and drink more liquids, especially water. You may use a humidifier or vaporizer to help keep the drainage moist. Ucjj-mtf-gffywqe Nasal Saline may help the stuffy and runny nose. Use Ibuprofen and or Tylenol as needed for fever, chills, body aches or pain. Children 5 years old should not be given qyjh-fgs-sitilxv cough and cold medications such as guaifenesin and dextromethorphan. If you're over age 5, you may try gvjb-ytf-auzzhil cold medications such as guaifenesin and dextromethorphan, [...] N39.0) 01/24/2025 Kidney stones (ICD-10 - N20.0) 01/24/2025 VUR (vesicoureteric reflux) (ICD-10 - N13.70) [...] 11/24/2024 VUR (vesicoureteric reflux) (ICD-10 - N13.70) 11/24/2024 Other Atrophic left kidney. Needs renogram [...] area. Take NSAIDs for pain as needed 06/16/2025 Other Recommended to rest and use a heating pad on the area. Take NSAIDs for pain as needed Plan Of Treatment Pending Test Test Name Order Date CMP (COMPLETE METABOLIC PANEL) 3 CMP (COMPLETE METABOLIC PANEL) 4 CULTURE, URINE w SENSITIVITY 03/16/2025 ANTI - DNASE B (STREPTOCOCCAL) 5 HEMOGLOBIN A1C (GLYCO) 09/16/2023 IRON, TOTAL 09/16/2023 IRON, TOTAL 07/28/2024 LITHOLINK, 24 HR URINE 11/24/2024 LIPID PANEL (CHOL/TRIG/HDL/LDL) 09/16/20 23 CBC WITH DIFF 09/16/2023 CBC WITH DIFF 07/28/2024 ASO ([id number]), BLOOD 025 NUC MED Renal Flow with Lasix 11/24/2024 RHEUMATOID PANEL 05/23/2025 Insulin Level 09/16/2023 Covid-19 PCR (CVDTBH) 06/29/2024 SED RATE WESTERGREN 09/07/2024 SED RATE WESTERGREN 05/23/2025 VIT B12 AND FOLATE 07/28/2024 MRI CSPINE WO CON 06/16/2025 MRI LSPINE WO CON 03/23/2025 US ABD 06/16/2025 XR HIP LT 2 3V W PELVIS 07/28/2024 XR LSPINE MIN 4 VIEWS 07/28/2024 XR LSPINE MIN 4 VIEWS 03/23/2025 THYROID PANEL (T4/TSH/FREE T3) 4 THYROID PANEL (T4/TSH/FREE T3) 3 XR HIP RT 2 3V W PELVIS 07/28/2024 Next Appt Details Provider Name:Kendrick Das, 10:00:00 AM, [address] [place], [address], Insurance Providers Payer Name Payer Address Payer Phone Subscriber Number Group Number Insured Name Patient Relationship to Insured Coverage Start Date Coverage End Date [employer] [address] [place] [address] [id number] Wesly Barriga Spouse - patient is the [...] G56.22 Depression Anxiety Surgical History Surgery Date(Month/Year) Cholecystectomy Right Renal Calculus 05/24/2020 Cystoscopy, Left retrograde pyelogram, u reteral stent- Dr. Souza's Hysterectomy, Bilat Salpingectomy- Bernie 05/06/23 urethral dilation Right laser lithotripsy - Dr Villa 12/08 21 ureteral stent placement on Left side 01/22/25 Cystoscopy, Holmium Laser Li thotripsy, Lt stent replacement, Rt stent placement- Dr Desai 01/27/25 Hospitalization History Reason Date(Month/Year) Multiple for kidney stones and stents
--- OUTSIDE RECORDS SUMMARY | 2025-06-19 00:37 | XMS_ITS | Encounter Summary ---
Author Organization [facility] Address [address] [place] [address] Care Team Providers Care Sample Box Maker Name Role Phone Ignacio Das MD Primary Care Provider [phone] Encounter Details Date Type Department Care Team (Late Contact Info) Description 04/18/2025 Orders Only [facility] [address] [facility] [place] [address] Tana Shell LPN [address] [facility] [address] [place] [address] Social History Tobacco Use Types Packs/Day Years [...] AM EDT Office Visit [place] [address] [facility] [place] [address] Jefferson Gibbs DO [address] [place] [id number] 05/29/2026 1:15 PM EDT Office Visit [facility] [address] [place] [address] Alejandra Leiva MD [address] [place] [address] documented as of this encounter Procedures Procedure Name Priority Date/Time Associated Diagnosis Comments PAP SMEAR Routine 04/05/2025 12:00 AM EDT documented in this encounter Results * (ABNORMAL) Pap Smear (04/05/2025 12:00 AM EDT) Swab Cervical swab / Unknown Bernie Nurse [facility] LAB CYTOLOGY ORDERABLES Final Result EXTERNAL LAB documented in this encounter Visit Diagnoses Not on filedocumented in this encounter Care Teams Sample Box Maker Relationship Specialty Start Date End Date Ignacio Das MD [address] [place] [address] PCP - General Family Medicine 04/13/23 documented as of this encounter
--- OUTSIDE RECORDS SUMMARY | 2025-06-19 00:37 | XMS_ITS | Encounter Summary ---
Author Organization [facility] Address [address] [facility] [place] [address] Care Team Providers Care Licensed Embalmer Name Role Phone Ignacio Das MD Primary Care Provider [phone] Encounter Details Date Type Department Care Team ([facility] Contact Info) Description 05/27/2023 Abstract [facility] [address] [facility] [place] [address] Jefferson Gibbs DO [address], [facility] Social History Tobacco Use Types Packs/Day Years [...] AM EDT Office Visit [place] K[facility] [address] [place] [address] Jefferson Gibbs DO [address], [place] [address] 05/29/2026 1:15 PM EDT Office Visit [facility] [address] [place] [address] Alejandra Leiva MD [address] [place] [address] documented as of this encounter Visit Diagnoses Not on filedocumented in this encounter Care Teams Licensed Embalmer Relationship Specialty Start Date End Date Ignacio Das MD [address] [place] [address] PCP - General Family Medicine 04/13/23 documented as of this encounter
--- OUTSIDE RECORDS SUMMARY | 2025-06-19 00:37 | XMS_ITS | Patient Health Record ---
Author Organization [facility] es Address [address] [place] [address] Care Team Providers Care Transportation Maintenance Operator Name Role Phone Iván Puckett Primary Care Provider Reason For Referral No Information Plan Of Treatment No Information Insurance Providers Payer Name Payer Address Payer Phone Subscriber Number Group Number Insured Name Patient Relationship to Insured Coverage Start Date Coverage End Date [employer] [address] [address] [place] [address] [phone] [id number] CORI BARRIGA Self - patient is the insured 3 [employer] [facility] [employer] [address] [place] [address] [id number] CORI BARRIGA Self - patient is the insured 3
--- OUTSIDE RECORDS SUMMARY | 2025-06-19 00:37 | XMS_ITS | Encounter Summary ---
Author Organization [facility] [employer] [facility] tem Address [id number] [address] [place] [address] Care Team Providers Care Otr Flatbed Driver Name Role Phone Ignacio Das MD Primary Care Provider [phone] Encounter Details Date Type Department Care Team (Late st Contact Info) Description 07/26/2020 Abstract Maternal- Medicine at [facility] [address] [place] [address] Billy Cazares MD [address] [facility], [address] [place], [place] [id number] Social History Tobacco Use Types Packs/Day Years [...] on filedocumented in this encounter Care Teams Otr Flatbed Driver Relationship Specialty Start Date End Date Ignacio Das MD PCP - General Family Medicine 09/17/20 documented as of this encounter
--- OUTSIDE RECORDS SUMMARY | 2025-06-19 00:37 | XMS_ITS | Clinical Summary ---
Author Organization [facility] Address [address] [place] [address] Care Team Providers Care Utility Technician Name Role Phone Ignacio Das MD Unavailable [phone] Social History Tobacco Use Types Packs/Day Years Used Date Smoking Tobacco: Never Assessed Area Deprivation Index Answer Date Corky rded National Score (1-100), lower number is lower ri sk 70 11/01/2022 State Score (1-10), lower number is lower risk N ot on file 11/01/2022 Data from: https://www.neighborhoodatlas.medicine.[facility].edu/. Last address used for calculation [address] [place] [address] 11/01/2022 Comments Unknown Sex and Gender Information Value Date Recorded Sex Assigned at Not on file Legal Sex Female 7:07 PM EST Gender Identity Not on file Sexual Orientation Not on file Plan of Treatment Health Maintenance Due Date Last Done Comments Anxiety Screening 2009 Depression Screening 2009 HIV Screening 2009 Hepatitis C Screening 2009 Cervical Cancer Screening 2012 HPV Vaccine (1 - 3-dose SCDM series) 2018 Influenza Vaccine (#1) 2025 9, 08/08/2018, 08/22/2009 DTaP,Tdap,Td Vaccine (7 - Td or Tdap) 02/06/2031 02/06/2021, 08/09/2018, 04/10/1993, Additional history exists Hepatitis B Vaccine Completed 06/19/2004, 03/27/2004, 12/18/2003 Insurance [facility] MEDICAID Care Teams Utility Technician Relationship Specialty Start Date End Date Ignacio Das MD Referring Family Medicine 09/01/22
--- OUTSIDE RECORDS SUMMARY | 2025-06-19 00:37 | XMS_ITS | Clinical Summary ---
Author Organization [facility] Address [address] [facility], [address] [place] [address] Care Team Providers Care Compliance Professional Name Role Phone Ignacio Das MD Primary Care Provider [phone] Allergies No known active allergies Medications tamsulosin [...] kidney stone 2024 Left ureteral calculus 01/21/2025 Social History Tobacco Use Types Packs/Day Years Used Date Smoking Tobacco: Never Smokeless Tobacco: Never Tobacco Cessation:Counseling Given: No Alcohol Use Standard Drinks/Week Comments Not Currently 0 (1 standard drink = 0.6 oz pur e alcohol) [facility] Utilities Answer Date Recorded In the past 12 months has [employer], gas, oil, or water company threatened to shut [...] any time in the past 12 m [facility], were you homeless or living in a nursing home (including now)? No 01/26/2025 Food Insecurity Answer [...] COVID-19 Vaccine ( season) 2024 Flu vaccine (#1) 05/19/2025 08/01/2019, , 08/22/2009 DTaP/Tdap/Td vaccine (7 - Td or Tdap) 02/06/2031 02/06/2021, 08/09/2018, 04/10/1993, Additional history exists Hib vaccine Completed 12/28/1992, 05/1992, 01/18/1992, Additional history exists Hepatitis B vaccine Completed 06/19/2004, 03/27/2004, 12/18/2003 HPV vaccine (No Doses Required) Completed Hepatitis A vaccine Aged Out No longe [...] this topic Medical Devices Implanted Type Area Planer Stone Device Identifier Shelf Expiration Date Model / Serial / Lot Stent Uret 6fr L26cm Percflx Hydr+ Tapr Tip Grad - [id number] Implanted:Qty : 1 on 01/22/2025 by Sanya Trevizo MD at [facility] Left: Ureter [employer] [id number] 09/06/2027 [id number] 30 / / [id number] Stent Uret 6fr L26cm Percflx Hydr+ Dbl Pgtl Thrd 2 - [id number] Implanted:Qty : 1 on 01/27/2025 by Azar Espino MD at [facility] Left: Ureter [employer] [id number] 11/24/2027 [id number] 30 / / [id number] Stent Uret 6fr L26cm Percflx Hydr+ Dbl Pgtl Thrd 2 - [id number] Implanted:Qty : 1 on 01/27/2025 by Azar Espino MD at [facility] Right: Ureter [employer] [id number] 11/24/2027 [id number] 30 / / [id number] Insurance ALLIED BENEFIT SYSTEM Advance Directives * Full Code (Latest Code Status on File) Date Activated Date Inactivated Comments 01/26/2025 5:26 PM 01/29/2025 11:47 AM * Full Code Date Activated Date Inactivated Comments 01/21/2025 11:46 PM 01/22/2025 6:02 PM Care Teams Compliance Professional Relationship Specialty Start Date End Date Ignacio Das MD [address] [place] [address] PCP - General Family Medicine 01/05/25
--- OUTSIDE RECORDS SUMMARY | 2025-06-19 00:37 | XMS_ITS | Encounter Summary ---
Author Organization [facility] Address [address] [place] [address] Care Team Providers Care Knife Sharpener Name Role Phone Ignacio Das MD Primary Care Provider [phone] Encounter Details Date Type Department Care Team (Late Contact Info) Description 04/18/2025 Results Follow-Up [place] [facility] [address] [facility] [place] [phone] Tana Shell LPN [address] [facility] [address] [facility] IGP,APTIMA HPV,AGE GDLN Social History Tobacco Use Types Packs/Day Years [...] AM EDT Office Visit [place] [address] [facility] [facility] [phone] Jefferson Gibbs DO [address] [facility] [address] [place], [place] [id number] 05/29/2026 1:15 PM EDT Office Visit [facility] [address] [place] [address] Alejandra Leiva MD [address] [facility] [address] [place] [address] documented as of this encounter Visit Diagnoses Not on filedocumented in this encounter Care Teams Knife Sharpener Relationship Specialty Start Date End Date Ignacio Das MD [address] [facility] [place] [address] PCP - General Family Medicine 04/13/23 documented as of this encounter
--- OUTSIDE RECORDS SUMMARY | 2025-06-19 00:37 | XMS_ITS | Encounter Summary ---
Author Organization [facility] [employer] [facility] tem Address [id number] [address] [place] [address] Care Team Providers Care Technical Support 1 Software Engineer Name Role Phone Ignacio Das MD Primary Care Provider [phone] Encounter Details Date Type Department Care Team (Late st Contact Info) Description 07/26/2020 Orders Only Maternal- Medicine at [facility] [address] [place] [address] External, Scanning Provider Social History Tobacco Use [...] on filedocumented in this encounter Care Teams Technical Support 1 Software Engineer Relationship Specialty Start Date End Date Ignacio Das MD PCP - General Family Medicine 09/17/20 documented as of this encounter
--- OUTSIDE RECORDS SUMMARY | 2025-06-19 00:37 | XMS_ITS | Encounter Summary ---
Author Organization [facility] Address [address] [place] [address] Care Team Providers Care Roof Promenade Tile Setter Name Role Phone Ignacio Das MD Primary Care Provider [phone] Encounter Details Date Type Department Care Team (Latest Contact Info) Description 05/19/2025 Results Follow-Up [facility] [address] [place] [address] [place] [address] Alejandra Leiva MD [address] [place] [address] [place] [address] Dermatopathology exam Social History Tobacco [...] EDT Office Visit [place] [facility] [address] [facility] [place] [phone] Jefferson Gibbs DO [address] [facility] [address] [place], [place] [id number] 05/29/2026 1:15 PM EDT Office Visit [facility] [address] [place] [address] [place] [address] Alejandra Leiva MD [address] [place] [address] [place] [address] documented as of this encounter Visit Diagnoses Not on filedocumented in this encounter Care Teams Roof Promenade Tile Setter Relationship Specialty Start Date End Date Ignacio Das MD [address] [facility] [place] [phone] PCP - General Family Medicine 04/13/23 documented as of this encounter
--- OUTSIDE RECORDS SUMMARY | 2025-06-19 00:38 | XMS_ITS | Encounter Summary ---
Author Organization [facility] Address [address] [place] [address] Care Team Providers Care Assembly Line Inspector Name Role Phone Ignacio Das MD Primary Care Provider [phone] Encounter Details Date Type Department Care Team ([facility] Contact Info) Description 04/30/2023 Abstract [facility] [address] [place] [phone] Jefferson Gibbs DO [address] [place] [address] Social History Tobacco Use Types Packs/Day Years [...] Upcoming Encounters Date Type Department Care Team ([facility] Contact Info) Description 04/09/2026 9:00 AM EDT Office Visit [place] [address] [place] [phone] Jefferson Gibbs DO [address] [place] [place] [id number] 05/29/2026 1:15 PM EDT Office Visit [facility] [address] [place] [address] [place] [address] Alejandra Leiva MD [address] [facility] [place] [address] [place] [address] documented as of this encounter Visit Diagnoses Not on filedocumented in this encounter Care Teams Assembly Line Inspector Relationship Specialty Start Date End Date Ignacio Das MD [address] [facility] [place] [address] PCP - General Family Medicine 04/13/23 documented as of this encounter
--- OUTSIDE RECORDS SUMMARY | 2025-06-19 00:38 | XMS_ITS | Encounter Summary ---
Author Organization [facility] Address [address] [place] [address] Care Team Providers Care Audiometric Technician Name Role Phone Ignacio Das MD Primary Care Provider [phone] Encounter Details Date Type Department Care Team (Late Contact Info) Description 05/15/2023 Abstract [facility] [address] [facility] [place] [phone] Tamiko Chacon PA [address] [facility] [address] [place], [place] [address] Social History Tobacco Use Types Packs/Day Years [...] AM EDT Office Visit [place] [address] [facility] [place] [phone] Jefferson Gibbs DO [address] [facility] [address] [place], [place] [address] 05/29/2026 1:15 PM EDT Office Visit [facility] [address] [place] [address] [place] [address] Alejandra Leiva MD [address] [facility] [address] [place] [address] documented as of this encounter Visit Diagnoses Not on filedocumented in this encounter Care Teams Audiometric Technician Relationship Specialty Start Date End Date Ignacio Das MD [address] [place] [address] PCP - General Family Medicine 04/13/23 documented as of this encounter
--- OUTSIDE RECORDS SUMMARY | 2025-06-19 00:38 | XMS_ITS | CCD ---
Author Organization [facility] Care Team Providers Care Ben Day Artist Name Role Phone Domingo Snyder MD Unavailable DANIEL MONTGOMERY Attending Unavailable DOMINGO SNYDER Referring Unavailable Domingo Snyder Primary Care Physician LILLIAN ., DR LANE Primary Care Unavailable BERNIE ., DR TOLBERT Admitting Unavailable BERNIE ., DR TOLBERT Attending Unavailable SILVERIO, DR ERWNI Turner Consulting Unavailable SILVERIO, DR ERWIN Turner [...] Unavailable DAJUAN, DR GLEN Alford Consulting Unavailable RICHY ., DR LANE Primary Care Unavailable BERNIE [...] Unavailable BERNIE ., DR TOLBERT Attending Unavailable SCOT[place]ILLE, DR GLEN Alford Consulting Unavailable BERNIE ., [...] HOY ., DR LANE Primary Care Unavailable DVEAN, CASEY Consulting Unavailable KORTNEY ACOSTA Consulting Unavailable [...] Attending Unavailable RAYGOZANona R Attending Unavailable MD Domigno Snyder Primary Care Provider [phone] MD Arnulfo Aviles Admit Provider MD Arnulfo Aviles Attending Provider Domingo Snyder MD Primary Care Provider [phone] Domingo Snyder MD Attending Provider [phone] ADONIS GUERRA Referring Unavailable DOMINGO SNYDER Primary Care Unavailable Domingo Snyder MD Primary Care Provider [phone] Domingo Snyder MD Primary Care Provider [phone] Domingo Snyder MD Attending Provider [phone] Javi Tanner PA-C Attending Provider [phone] DOMINGO SNYDER Primary Care Unavailable JAVI TANNER Referring Unavailable SURENDRA SALINAS Consulting Unavailable MASHALEH I, MOHAMMAD Admitting Unavailable MASESTRELLA Kearns, KATED Attending Unavailable DOMINGO SNYDER Primary Care Unavailable ADONIS GUERRA Attending Unavailable ADONIS GUERRA Referring Unavailable DOMINGO SNYDER Primary Care Unavailable DOMINGO SNYDER Primary Care Unavailable SIDNEY, HAYLEY Z Referring Unavailable EDWINA ESPINO Consulting Unavailable MASHALEH I, MOHAMMAD Admitting Unavailable MASESTRELLA Kearns, KATED Attending Unavailable Adonis Guerra Attending Unavailable Adonis Guerra Admitting Unavailable DOMINGO SNYDER Primary Care Unavailable DOMINGO SNYDER Primary Care Unavailable Domingo Snyder MD Primary Care Provider [phone] Vj Fraire DO Attending Provider Domingo Snyder Attending Unavailable Domingo Snyder Admitting Unavailable Domingo Snyder Primary Care Unavailable Javi Tanner Admitting Unavailable Javi Tanner Attending Unavailable Vj Fraire Admitting Unavailable Vj Fraire Attending Unavailable JEFFERSON GIBBS Attending Unavailable PATRICK LEIVA Attending Unavailable PATRICK LEIVA Attending Unavailable PATRICK LEIVA Attending Unavailable Medications Current Medications Medication Drug Class(es) Dates Sig (Normalized) Sig (Original) benztropine mesylate 1 mg oral tablet (5 sources) Anticholinergic, Antihistamine Start: 12-24-2022 benztropine 1 mg Tab Refills(s) 0 Start Date: 12/24/22 Status: Ordered Start: 08-13-2022 End: 08-16-2022 take 1 tablet by mouth twice daily as needed Benztropine 1 mg tablet Discontinued 1 MG PO Twice daily as needed for eps August 13, 2022 12:00am August 16, 2022 11:38am busPIRone hydrochloride 7.5 mg oral tablet (5 sources) Start: 12-24-2022 busPIRone 7.5 mg oral [...] IntraVENous, EVERY 24 HOURS, First dose on Thu01/26/25 at 2044, Administer as slow IV Push over 5 mins Reconstitute 1 g vials with 9.6 mL of designated diluent to produce a 100 mg/mL solution. Start: 01-22-2025 End: 02-01-2025 citalopram 10 mg oral tablet (5 sources) Serotonin Reuptake Inhibitor Start: 12-24-2022 citalopram 10 mg Tab Refills(s) 0 Start Date: 12/24/22 Status: Ordered Start: 08-13-2022 End: 08-16-2022 take 1 tablet by mouth twice daily Citalopram 20 mg tablet Discontinued 20 MG PO Twice daily August 13, 2022 12:00am August 16, 2022 11:38am 168 hr estradiol 0.03721 mg/hr transdermal system (14 sources) Estrogen Start: 04-05-2025 End: 04-05-2026 estradiol (Climara) 0.05 MG/24HR Indications: Night sweats Place 1 patch over 7 days on the skin 1 (one) time per week 12 patch 3 04/05/2025 04/05/2026 Active fluconazole 150 mg oral tablet (2 sources) Azole Antifungal Start: 05-15-2025 End: 05-15-2025 take 1 tablet by mouth once, then take 1 tablet by mouth once fluconazole (Diflucan) 150 MG tablet Indications: Yeast infection Take 1 tablet (150 mg) by mouth 1 (one) time for 1 dose This is a 1 time dose, take single tablet by mouth. 1 tablet 1 05/15/2025 05/15/2025 Active 1 ml HYDROmorphone hydrochloride 1 mg/ml [...] ordered. hydrOXYzine pamoate 50 mg oral capsule (5 sources) Antihistamine Start: 12-24-2022 hydrOXYzine pamoate 50 mg Cap Refills(s) 0 Start Date: 12/24/22 Status: Ordered Start: 08-13-2022 End: 08-16-2022 take 1 capsule by mouth three times daily as needed for anxiety Hydroxyzine Pamoate 50 mg capsule Discontinued 50 MG PO Three times daily as needed for Anxiety August 13, 2022 12:00am August 16, 2022 11:38am ibuprofen 600 mg oral tablet (17 sources) Nonsteroidal Anti-inflammatory Drug Start: 01-29-2025 End: 02-05-2025 take 1 tablet by mouth three times daily as needed for pain ibuprofen (ADVIL;MOTRIN) 600 MG tablet Take 1 tablet by mouth 3 times daily as needed for Pain 21 tablet 01/29/2025 02/05/2025 Active Start: 01-22-2025 End: 01-21-2025 take 1 dose by mouth once 600 mg, Oral, ONCE, 1 dose, On 01/22/25 at 0015 Start: 05-07-2023 take 1 tablet [...] 2 mg nabumetone 750 mg oral tablet (15 sources) Nonsteroidal Anti-inflammatory Drug Start: 07-17-2023 nabumetone (Relaf en) 750 MG tablet Take 750 mg by mouth as needed in the morning and 750 mg as needed in the evening. 07/17/2023 Active Marlette (No Known Home Meds) (4 sources) Start: 04-08-2024 Marlette (No Kn own Home Meds) Active April 07, 2024 11:00pm Start: 04-08-2024 Marlette (No Kn own Home Meds) Active April 08, 2024 12:00am OLANZapine 15 mg oral tablet (5 sources) Atypical Antipsychotic Start: 12-24-2022 olanzap ine [...] potassium bicarbonate 25 meq effervescent oral tablet (15 sources) Start: 06-23-2023 Effer-K 25 MEQ effervescent tablet 06/23/2023 Active Potassium Chloride (1 source) Start: 01-21-2025 potassium chlo ride (KLOR-CON M) extended release tablet 40 mEq QUEtiapine 100 mg oral tablet (5 sources) Atypical Antipsychotic Start: 12-24-2022 quetiap ine [...] BID, # 30 tab(s), Refills(s) 3, Pharmacy: [facility]/pharmacy #[id number], 168, cm, 03/20/23 [...] stress. unspecified] Onset: 06-16-2024 Chronic Anxiety disorders (17 sources) Generalized anxiety disorder; Translations: [Anxiety] Onset: 07-26-2020 Chronic Genitourinary symptoms and ill-defined conditions (20 sources) Urge incontinence of urine; Translations: [Presence of urogenital implants] Onset: 09-09-2022 12-19-2019 Chronic Inflammation; infection of eye (except that caused by tuberculosis or sexually transmitteddisease) (2 sources) Hordeolum externum of upper eyelid of right eye; Translations: [Hordeolum externum right upper eyelid] 04-10-2025 Episodic Menstrual disorders (20 sources) Excessive and frequent menstruation with regular cycle; Translations: [Menorrhagia] Onset: 11-04-2022 Chronic Mood disorders (20 sources) Major depressive disorder, single episode, unspecified; Translations: [Major depressive disorder, recurrent, unspecified] Onset: 08-14-2022 03-20-2023 Chronic Nausea and vomiting (4 sources) Nausea with vomiting, unspecified; Translations: [NAUSEA WITH VOMITING UNSPECIFIED] Onset: 02-16-2023 Episodic Neoplasms of unspecified nature or uncertain behavior (4 sources) Neoplastic disease; Translations: [Neoplasm of unspecified behavior of bone, soft tissue, and skin] 04-10-2025 Episodic Other aftercare (1 source) Other half-way (current) drug therapy; Translations: [OTH DIGITAL MEDIA ANALYST CURRENT DRUG THERAPY] Onset: 02-18-2023 Episodic Other aftercare (1 source) correction (current) use of oral hypoglycemic drugs; Translations: [RESIDENTIAL USE ORAL HYPOGLYCEMIC DX] Onset: 02-18-2023 Episodic Other aftercare (4 sources) Removal of sutures done; Translations: [Encounter [...] 01-26-2025 01-27-2025 Episodic Other nervous system disorders (15 sources) Entrapment of left ulnar nerve; Translations: [Lesion of ulnar nerve, left upper limb] Onset: 06-01-2023 06-01-2023 Chronic Other nervous system disorders (15 sources) Lesion of ulnar nerve; Translations: [Lesion [...] Chronic Other nutritional; endocrine; and metabolic disorders (15 sources) Body mass index 40+ - severely [...] 02-18-2023 Episodic Suicide and intentional self-inflicted injury (8 sources) Suicidal ideations; Translations: [Suicidal thoughts] Onset: 08-13-2022 Episodic Unclassified (1 source) NO SHOW Unclassified (3 sources) Finding of sensation of bladder 08-20-2021 Unclassified (1 source) CONTACT W/AND (SUSP) EXPOS COVID-19; Translations: [CONTACT W/AND (SUSP) EXPOS COVID-19] Onset: 11-04-2022 Past or Other Problems Problem Classification Problem Date Documented Da te Episodic/Chronic Abdominal pain (20 sources) Flank pain; Translations: [Unspecified abdominal pain] Onset: 2 02-28-2020 Episodic Blindness and vision defects (15 sources) Astigmatism; Translations: [Unspecified astigmatism, unspecified eye] [...] Onset: 3 Episodic Contraceptive and procreative management (15 sources) Intrauterine contraceptive device in situ; Translations: [Presence of (intrauterine) contraceptive device] Onset: 3 04-10-2023 Episodic Deficiency and other anemia (1 source) Iron deficiency anemia, unspecified; Translations: [IRON DEFICIENCY ANEMIA UNSPECIFIED] Onset: 2 Episodic Diabetes or abnormal glucose tolerance complicating ; childbirth; or the puerperium (15 sources) History of gestational diabetes mellitus; Translations: [Personal history of gestational diabetes] Onset: 0 06-01-2023 Episodic Early or threatened labor (15 sources) Term delivered; Translations: [Term delivery with [...] PAPILLOMAVIRUS] Onset: 2 Episodic Nonmalignant breast conditions (15 sources) Lump in left breast; Translations: [Unspecified lump in the left breast, unspecified quadrant] Onset: 4 01-08-2024 Episodic Other aftercare (15 sources) Patient encounter status; Translations: [Encounter for follow-up examination after completed treatment for conditions other than malignant neoplasm] Onset: 3 04-10-2023 Episodic Other complications of (15 sources) 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, non-Rh blood-group incompatibility affecting ; Translations: [Maternal care for other isoimmunization, unspecified trimester, not applicable or unspecified] Onset: 8 06-01-2023 Episodic Other connective tissue disease (15 sources) Muscle pain; Translations: [Myalgia, unspecified site] Onset: 3 06-01-2023 Episodic Other diseases of bladder and urethra (18 sources) Urethral stricture; Translations: [Unspecified urethral stricture, female] Onset: 3 12-19-2019 Episodic Other diseases of kidney and ureters (15 sources) Stricture of ureter; Translations: [Crossing vessel and stricture of ureter without hydronephrosis] Onset: 3 06-01-2023 Episodic Other female genital disorders (15 sources) Retroflexed uterus; Translations: [Malposition of uterus] Onset: 3 06-01-2023 Episodic Other infections; including parasitic (15 sources) History of chlamydial infection; Translations: [Personal history of other infectious and parasitic diseases] Onset: 0 06-01-2023 Episodic Other nutritional; endocrine; and metabolic disorders (15 sources) Abnormal weight gain; Translations: [Abnormal weight gain] Onset: 3 04-10-2023 Episodic Other nutritional; endocrine; and metabolic disorders (15 sources) Overweight; Translations: [Overweight] Onset: 3 06-01-2023 Episodic Other and delivery including normal (15 sources) Intrauterine ; Translations: [Encounter for supervision of normal , unspecified, unspecified trimester] Onset: 8 06-01-2023 Episodic Other skin disorders (15 sources) Mass of scalp; Translations: [Localized swelling, mass and lump, head] Onset: 3 06-01-2023 Episodic Other upper respiratory infections (15 sources) Streptococcal sore throat; Translations: [Streptococcal pharyngitis] Onset: 3 06-01-2023 Episodic Ovarian cyst (1 source) Other ovarian cyst, right side; Translations: [OTHER OVARIAN CYST RIGHT SIDE] Onset: 3 Episodic Phlebitis; thrombophlebitis and thromboembolism (15 sources) Superficial thrombophlebitis; Translations: [Phlebitis and thrombophlebitis of unspecified site] Onset: 3 06-01-2023 Episodic Septicemia (except in labor) (1 source) Sepsis due to streptococcus, group B; Translations: [SEPSIS DUE TO STREPTOCOCCUS GROUP B] Onset: 2 Episodic Sprains and strains (19 sources) Sprain of calcaneofibular ligament of left ankle, initial encounter; Translations: [Sprain of calcaneofibular ligament] Onset: 2 Episodic Urinary tract infections (20 sources) Pyelonephritis; Translations: [Urinary tract infectious disease] Onset: 2 11-24-2019 Episodic Results Test Name Value Interpretation Reference Range Facility No Panel Informationon 05-15 Lesion length (cm): 0.7 Lesion width (cm): [...] 6.0 ml Estimated blood loss: 1.[address] [facility] Complexity: Intermediate Final length (cm): 4.2 Reason [...] bleeding, or complications. Dressing type: pressure dressing [facility] No Panel InformationOrdered By: Falguni Morirs on 05-15-2025 [facility] Urine Cultureon 05-05-2025 Bacteria identified Cx Nom (U) ORGANISM: Citrobacter freundii complex (O:CITFRC) [place] Count 75,000 Aerobic ANASTASIA Charge (NMIC56) ---- SUSCEPTIBILITY --- ORGANISM: O:CITFRC ANTIBIOTIC INTERPRETATION ANASTASIA Amikacin S <16 Aztreonam I <4 Cefepime S <2 Ceftazidime I <1 Ceftazidime/Avibactam S <4 Ceftriaxone I <1 Ciprofloxacin S <0.25 Ertapenem S <0.5 Gentamicin S <2 Levofloxacin S <0.5 Meropenem S <1 Nitrofurantoin S <32 Piperacillin/Tazobact am I <8 Tetracycline S <4 Tigecycline S <2 Tobramycin S <2 Trimethoprim/Sulfamet hoxazole R >2 S = SUSCEPTIBLE I = INTERMEDIATE R [...] RESISTANT TO ALL B-LACTAM DRUGS. PERFORMED BY: [facility] [address] [place] [address] PATHOLOGIST [employer]UT[employer] SPECIALIST CALLUM ALVA M.D. Normal [facility] Comment on above: Performed By: #### C UU #### [facility] [address] [place] [address] [place] IGP,APTIMA HPV,AGE GDLNon AGE GDLN ACOG TESTING Note . [facility] Comment on above: TESTS RESULT FLAG UN ITS REF RANGE LAB Clinician Provided Cytology Information Source.............Vagina No. of containers..01 ThinPrep Vial Age Algo ACOG Radha... FLAG LEGEND: L-Low Normal,H-High Normal,LL-Alert Low,HH-Alert High <-Panic Low,>-Panic High,A-Abnormal,AA-Critical Abnormal Performed at: 01 =[address] [place] [address] Shereen Caal MD, HPV APTIMA Negative Negative [facility] Comment on above: This nucleic acid am plification test detects fourteen high- risk HPV types (16,18,31,33,35,39,45,51,52,56,58,59,66,68) without differentiation. Performed at: =[address] [id number] Insurance Agent: Shereen Caal MD, Phone: [phone] Performed at: [address] [id number] Insurance Agent: Shereen Caal MD, Phone: [phone] IGP, APTIMA HPV, RFX 16/18,[address] [facility] Comment on above: TESTS RESULT FLAG UN ITS REF RANGE LAB DIAGNOSIS: [A] 02 EPITHELIAL CELL ABNORMALITY. ATYPICAL SQUAMOUS CELLS OF UNDETERMINED SIGNIFICANCE (ASC-US). Recommendation: [A] 02 Suggest follow up as clinically appropriate. Specimen adequacy: 02 Satisfactory for evaluation. Performed by: 02 Tamiko Barrow, Director Of Individual Giving (ASCP) Electronically si... 02 Capri Boston MD, Pathologist [...] <-Panic Low,>-Panic High,A-Abnormal,AA-Critical Abnormal Performed at: [address] [phone] Shereen Caal MD, Interpretation and review of laboratory results Abnormal [facility] SPATULA-[facility]ONE [facility]AG[facility] No Panel Informationon 04-10 Type of biopsy: [facility] Informed consent: discussed and consent obtained Informed [...] sent for H&E Number of sutures: 2 [facility] [employer] Type of biopsy: tangential Informed consent: discussed [...] taken Amount of lidocaine used: 1.0 cc [facility] Outside Recordson 04-03-2025 Outside Records [id number] [facility] Coding Summaryon 03-23-2025 Coding Summary HTMLBase 64 FzyaziwzGIf5xGj+PGhlY WQ+FP3QTCRuJ59svIAtgT 6wJ0FNVRdBQkhqUEDACOv RUbUrqvDdBR8ykRHrUGSq IC8+HK1cKWXvJdxrzNWyo 7H6eJU1F75kny0mYYqdxM I9PTDtBiWzmbddl1vlcHk 6IDcuNmluOyBt DUHfiZ81ZFV6nA00Ia61l PJtpCOdw9vekFq6LzFaKD RpWFJ6tYmgALvaq5OyBZM aW36ptKXqh5C4 DNGnrCiplFGcXjHldDD7h B8yOFikhzjya3icqfuyAo i7ss82nDNeq5W2vAO6A2L zuaT7ADBfbAZx OkndgTPEwY4ukcmfv3fgr oytZyWcCVDeYGb9XFv7JD PihBpqLaByLC89FCT9XFQ ixmDdR2ImVTXv bFyvMfJ8v1D7Zi6EM4GAY wlmJ0MKBOPBNFormYN+PC 00oa04Z1GkLcbyBdw4CTK dYGL3qXA1qC6h KJGrWSygz8I6gQE0A4Qey aUaew7vh4azPJSrVQobB8 7xwRKcz8V5TOKdaWL5FBI ghXrkTcFurQ90 Oyc+IHFvaXbzj2AzTxnyp 3zvj1armNu8YgpdGYQyfk FzwFgaHRZ9o1CsUd8lZJU lgCE4wSE7hG2q CsDbZpY4EWhnD565QvVxq WLaYlboP04vM2JiaEG+PH GeIfv5TYOzvKsqHW7xR1H hZGRpbmctbGVm uMvzIV6cKUJrveayXUUyz D0uMVCjI4v8PbZnQmC4YG amQ2VfLGYjzinkDa72gR3 uPoZeHyL3GMsu R9PejeL3OTHfqFQoIDvrH AK7B76hg3A2NQDzZXHgYE F6kJY8hN7ylQcdbylqnUS mdDsgdmVydGlj SNkrSPknK348EHUdyYjvZ kNvZGluZyBEYXRlOiAgMD YvMDUvMjAyNTwvdGQ+PHR iTTY6zPzkJIWi xIYrCCabAc3bhBnlbDnyX G3eAFDdutjeMLKecK8oTG FxqSZfiCdmFR6aZCVxgli qf259EjBoPUY0 IIIfvCNhS4LssF3oJdSsZ JVnMDVbY9FemBJtGIwbX9 00NDbrEtS8ZFOnuhVmG7O sLWFsaWduOiB0 d8K0Bu3Ta0BymewgO7Myz GLuAaTbPklnKJp9T5VdPx wvdHI+IJ81DSQpEQ93FFw 8FHG6uUuyDIju FZGhP1QvwV5iIxYfYIIeO GRkOyc+PHRhYmxlIHdpZH RoPScxMDAlJyBzdHlsZT0 vZo6uPMOfTUMx nYjbvLRmDgHaa8znOZIrC VmyON0rmZvvQ3YweOO8EQ Gcr3t0Qg96N76uO7WvoSJ +YIBvsDN7dSD1 sC8qUdGlIrF3TPyzM551W gRwjCDsLewsq4vrb6wfiG a0UjJ5DLOjdrSjxJbjKNV 3o3GkKi76Q20l IHdpZHRoPSIxNSUiIHZhb Bpedq4dkA4xFo0+PGNvbC E6zZM5oW6hSsGaHzE6SJg kW403XkLapYAa Xivqs5cnl4zqlVq4XiJxL GAroxGvnQhqIBZ0m1JqHg 70A0LexCoqd0KmHch6vt1 2mBTbk9U7kZY4 Q2HkLIHqyboxqXGazDkcA H4lPSZjznxbUOTgfE0pAK PwD7c7CsZzNxI9UNavB5O gcaC0IWDtxFQz ZDUjiZULdL9yfaflw3grn czaZvMlZSJlZGy1MAf2KD SuqLunVxQeJOL1CjU2HLK 2wSMedD9tnPyk cxvmhI9vGaf+JUW6fPDqj WJEMK7lQsaotRN+PHRkIH O6dRogBCnaRNVejX6gEIH jF1v3KhGsRtH7 VPsmI4XtqnU9MYCunHLaE LTimOWNoC9vvvswm0fuva adPmRlWJBySQu4YBl4BPH saWduOiBsZWZ0 BoW4EVF7hEAsrX4tlLuqz jmnnD3ePmu+QmlydGggRG Q1SFh4O1QlBte9UBQgcYb fIA3czQSpHQtb Ms2rmAuhbWjtEV1pQHSek nwjd270OnPoj5gaERYouF XcODguKKJ0S81xy1Z3XKW oIATeDFJ5sZT1 nE0kjTvzjxaldSVtsXvha bCybXjnHSjeFAboO018YE HeoAomDrMoCYb3T6UmNjz 6OVKglLefUB0i qRAfPRjiAq6spGthjLxfV T9gZAHuvpgnj617FpEli2 zeYOWdwUTeAXyuQLA4Q23 np6J4XDZpIKVg LTL5pCY7gO6biBcglpkql GVmdDsgdmVydGljYWwtYW goQ884YOVuyWryWyQccNy 5Z1XrTda5KTNb gJfyFM8dwBCjNKweFp8yc JfuzTqwHV9kDJHjxikfc4 34RuSve4ctLQTpjNXxGJt tDDO6K16fy1T2 KNKqEEOqMAQ8cNH4bT5ct GlnbjogbGVmdDsgdmVydG xfOSxqJFkgA969POZwkMj nPlBhdGllbnQg WHmtSDo5K2WlXyoooWP+P K46APKnMR87tRDivIOaw5 chlCq8DxUeIEXySDF1rQw sOBtgm0LuRTLk P04psFTro8U6OZUkkTwqr FIyRqMrcJA9jF6uCSazje ovr2mtstbxCxxxh7eojj9 4jY09E55mDLum ZHRoPSIzMCUiIHZhbGlnb n9ieJ7kOx4+NMRbqNW0dI W7yH4mBPZhXmQ8UOmvR67 9InRvcCIvPjxj t5twt0yxeEm0UdS0HZKij mTbpJhlXEK2n5WpAx89S6 9sIHdpZHRoPSIyMCUiIHZ epVpfhe4kzM5s Ii8+GOTqbXX0zXD1kP4bE hDqKeC2GPctA568UyHubK MlFlfqL15rE3IufEM+PHR lJvv8PQGfeGnx XY5irRRjLHerRe8bKFN9L eXoKmRjRDmfS0UbBADamb qyqzoccDM3YGReDBJceE1 3Pf7kcQtkBBGr oCKAzO8hayajx9psqnlvH jMpFRWuLYv0KLt8VWQvpH pyAbKhQTD1TwK5GPT0qCY fsG9mpSrwgtcn gQ6bM6OdNZSdroxjGe27g V3fAzFoYaP3CBooKdk+TU 9GUXjmQ0NCMFWQXXUVS9Q WTG39H2JpIvg4 CRQuaUttBE8oiOExVMdcA p9feDepcLwgUV0xOCKcei onXDIjdD5sPVZpiZVglUj sHX8tBIYruamf w487DmLhYFJ3XORwcXEoD 1UnxV8wHuNvOMBzESWeV9 XijTErDIsmR967FDyzQeD 9XMCiroIeY2Pw PXMgoIhqTcW6c9R7Me2uE X0pLy4qRJkwLC99ND07hU Efs2B5uPY9J6JtYBJmzho kfjidxSY5KUSq KNDfyX22eJEjEMrkYd3ps 3H8m402GWKuYABmlT96Kx 2vaDsmYLGcfUYNjQ6jxlq sc2wvroivZaSn DSLiOYv9MTz4USQbiMfqO rUwBMB6ZqW8DTB8oWXbnH 7bxXkuhvotnF9cZra+MzM bLMAigdU8P8Pw Uab5IXXprHonDV6oeTDcX UuePl0qjGbufLnzQT4oFG TasfeoAZBgjW2lUNJbiMX zgRplZR7hHINi jctvy298OcCwYLS6APGup FFiM4MwzI2jMxWzLKMxVS AbO0GihWLuVCefZ050PMu zNjT1ZIRkscGu N2DdBUWonZoeAvO6n1F0S e9CYR4PWHW7L9FhPlx4BE GkkHrmMO8wxEIpDFpdMs3 njBfczGawLM0z KSYlmkawSQLwaO6kRFLaz HSmrZroCB9vQZOvlflrh9 88YbBcCKZ6ZDNuyVEbS9J qxG2uAkTyVTQp ZBZsV4RodMUzWEunT055M TvkNkA0HDCpkeGhI0PtQJ VosWnbJrF7y7F4Mo1VVPn vdGQ+OG47fw99 K8AwFvtvOyb5TTHxUYS1q MB4bZ4dFZQyKTjqo9T2aX G9O1WlomCwmz2uh4ypWKZ lADltK31flOQr e2H1HGDzgIQ8GEGawXggH oNhoY96Pjn+PGNvbGdyb3 ZfZtbpm7hcv2hkkNn1VeE wJSIgdmFsaWdu OKW3n7QwMu17W47eCZnaO HRoPSIzMCUiIHZhbGlnbj 5pbJ2qJh9+ENVlfCT1hDS 5kD2iFtVpAbQ9 ZTnhB229LoYirYTkGbqvn 1iox7ifzPa4MeGuRBGrji WcxAnkBYC5y7EgCy05T3F pvCvtv6YlKaq5 ls67wJTfy8A4iLY2Q7MnE LEofwfyyKXecQhiSK6nRG LwmgjpSTIzmK4pDXMyF9f 0AhVcVcK2OWai C7TftlG4NRRcvHIhSGKde MQIwQ0bbwwnr1cjjctwYs XkAMJhXMa1QPw3ROJbiIe cSgDxVAX0SxA3 INR4nGZovS5ojMlqikqfm G9wOyc+SSp6e8gwoOFnHE 8sfJV5SS20DT17tUVaq0M 8cOX4C3EfZXNi fliottgwdHP8SHYeRYThj E15Jm7hxYycVn4rMIHaNT F1FTCmpSQvF4KxwG7eGlS ySCFsMKFdU5Zu dGMaXHjeX559UYpxJgK3W SLrjbScS5ZrCKYueApnCs D7i2M5Qd4VIL61XF09TT1 0qSTte1G9nKQ8 I5WxTUVapbrosbkmzEI5U JWjYOPfsF98Dc8jzRjhOv 6qPGRuDAE2VVThrWBzP1W klI9vEyKvOTRk OEFaH4YhfIGwCNcfN790F VcdHoC1OFBjnlEbH6OxTZ NevDjkJyH0p2C3So4EGi3 8EC00HD67zHLk z6I1cFM7W2GoOMGabbgwb vdnaSD6GLLwBLZiyR61Bl 6joVapQb7zKZPlYZY2PGE rmCYjO9VpsL2k RtRaXWOoJPIaN5GkwSHmB PhaT188PYbbQzF6RJMhbc BsA5VcMKSeeXeyYeI0b7T 6Ce1RYSeunxw7 Y8SaVdltmKH+PJ05GBKsW R89sXByoCIwn5wkgQr4Cs FlHXVsHJX6cIfeEIsym9A pXXWtB93ccISl c2U (more content not included)... [facility] Provider [place] 03-20-2025 Provider Orders [id number]#1. 00OTGTIFF [facility] C Urineon 03-18-2025 C Urine >100,000 cfu/ml [...] <=2 Verified Tri/Sulf S <=2/38 Verified Normal [facility] Comment on above: Performed By: #### [id number] #### [facility] (DEFAULT) [address] [place] [address] Provider [place] 03-16-2025 Provider Orders [id number]#1. 00OTGTIFF Normal [facility] Cult,Bloodon 02-01-2025 Cult,Blood Specimen Description .BLOOD Special Requests Culture NO GROWTH 5 DAYS Report Status FINAL 02/01/2025 [facility] Comment on above: Performed By: #### B C #### [place] [id number] Insurance Agent: Alejandro Salazar MD Cult,Blood Specimen Description .BLOOD Special Requests RIGHT HAND 1ML Culture NO GROWTH 5 DAYS Report Status FINAL 02/01/2025 [facility] Comment on above: Performed By: #### B C #### [address] [id number] Insurance Agent: Alejandro Salazar MD Coding Summaryon 01-30-2025 Coding Summary HTMLBase 64 GnkauxbgUDj2wAx+PGhlY WQ+RP5DVEKiZ76zoMYuuQ 7tT8MGCHpMIzyoIBRMLZk FRvVsskWaMM0bpGMoCWYx IC8+PT5xGCDiSsonrCPen 5P6kSY1I77bgn3oWKtmpR T0IHYtVkDqnzpmp6qglCk 6IDcuNmluOyBt KPDnsB46BAV8aX43Fd24i EWszPIjq4mzeYe8XcFrTU SsPPQ5vCsnKTxic2JoSEH fB15ezYEoo9P5 OABixOeozTMkHuSagAV3a Z5eEHxjhzmxz6asptnuYn q1ko81sKJym3Q2ePE0J0P hglM6JABblZBy WhyrtTNXrQ5biysjx8nwv tdsMyEfEATgIEd0YBy0BJ IbkJmoFdBoCA87QOF5RKX hhcWuS7PkLGIa uYvcJhM2e4A0Zk1EE2XSP schS3DHMUZVAGtfcCF+PC 73ej65B1MvCqndHhr3FCH iHCX3fDU3bZ7h DEOuHGrhl6H8fSY3M9Sav lJoek2ki2wuMAGcUJfxL2 0lrFDny6O3WVMlnZA0IQI wmWbsAmUwhF08 Oyc+XSBvfMwka6XuDxqbj 1tbz2zqcDb2EeeoFHWtgt OddDtnSHL4v5WxLu1pSTV bgOF5cNL8qD9o NsJsXsX1DFyjG244KtFpr CUiWqvvJ37hI8CklAS+PH YxUuf1QHMbeNkrQZ9zD8X hZGRpbmctbGVm lLhnYH6xWOLepirmGEWgl V6xBCWjU4o0NqCsPwZ6JI oxZ4ObCYKpdpmpSv23rV2 nXbOrYlU4FIxy C5RqrlF0PNXckVIqRDisB AW3A61dr7K0PPStQYNzKJ Q8yTD9uO9pzCdimwtgmIW mdDsgdmVydGlj VZatSFkfL019KWUqbLcoA kNvZGluZyBEYXRlOiAgMD QvMTQvMjAyNTwvdGQ+PHR yTXB5xSyoFOTg qGZuYSfaJk9gtVlzgBwaW Q2fNNAxhfpbQAYkjA6dIA TdaRCqcDlwPF2kWWRciin qz023MiReQTZ2 TRVrwUIeG6VwjW1xVeNzN HMyCZOtZ0DyvOGhPDpaN5 81KSfsUwT9OCYuhqYiN9G sLWFsaWduOiB0 s3H3Mj1Bh0BnsmqcR4Ifc RUgFyKwEcsrLXq4Z8JgWx wvdHI+XV98RQLwEE57XIj 2NFW2nQyiCCbt EIBmS6NhnV4qTfRnTSTuB GRkOyc+PHRhYmxlIHdpZH RoPScxMDAlJyBzdHlsZT0 oXt0kZRHaGUDp iKpvuLSwLfAen2eaFOWmX CtoUD8xsRcrM7UppTB6NP Xxe9f2Jo00T22qG0OlxZC +IHNqzEK7cKW6 iH2yBdQwAdP0DIisL455J zTpfYJePukfw2frx6kulU q2QkI1VIUgaoGkeSkzTVP 6m5QeLj05K93p IHdpZHRoPSIxNSUiIHZhb Jlxbq7btI1wFv0+PGNvbC N8dQT6pW1wVaOfOqL9ULw jN494CzDnyNVl Mapof8lxz8xtbOt4QeSyQ EOwunMsjTmzPHK5z9CbFc 35Q8DusZpmu8FyHga9kt1 1hKQwq8P9qYS4 C7LlEIDcwlesiACsoQtdW G1eSVHjuwjyEBYjeG8bYF YcE3n4LwArHyK6PUqvH1L zwuX5QBBneNLo TDXeoIMOsJ5uleyzo7ygo uneLgSuPJIpDVa4EWk0VW RpdCrhCwEzPTU7ZdD9VZE 0zATqeZ3pvRnc ghcdtM9uJat+MRS7kCIop RSAST8hXcheaKE+PHRkIH K6zAkyGJnuVHOraO7tNSC wT3s2RiXtTnI4 ZLbwX9AtjfD1KTRryFLlK VSssMJHhP4ututjs3jogi neExBnNLAmSIg6XWw3KBU saWduOiBsZWZ0 TvJ6TOI1tFQofM9yxBssn qqahX0kMre+QmlydGggRG T6USs4J0WfWui4MUHirGj wCF6pcUZcZTcu Sn0kyKeilNdxIX1eZNMju armm943TnUnf6hoCWUmqI KnCVpfDUP7K38du7K5YBD iAJCqXVZ7pAL0 lV2tyMuxfixknSDgoOlpr sGubQwrWUqlYHplW612TQ YovFnqLeUpGFf6T7DcQvt 7OROooQxmLT8u yZTyKZtpRa4unYjwvLyvJ O6fDCGbpcyzs824ZlCuj2 jjFHRfdEOySPsiNHP6A63 yb3Q5IQHaNEUs MAB4aVM3gI7oyWnxlakuy GVmdDsgdmVydGljYWwtYW ioA494TVNwwTxkOcEchOu 1Y3JkFyi8IAZk gBeqKI0ysMOcHPapLl2ds UsieKmlSA7aXMLucjiwe3 27PrCxj2jfWUQhwJTeQOe gXZP3L10wx3A3 JQOdQXDpGLC2uOA0kN7pt GlnbjogbGVmdDsgdmVydG rvNAwdINymT143KDSnrBx nPlBhdGllbnQg CLbzZPz6M8TeYzuuvYC+P W79SIMdRK50qKCgzLRfk1 tckRc2CgTnVPRkPHE7qPp xARbel5XgFPLh N47jeMHxf3Y4THApsXqly IZzCyPlrDM3mW4xYZxcrq wdf5pfdsjkNeilk2kqmr0 7eE82P40zJUjf ZHRoPSIzMCUiIHZhbGlnb d5uoJ0gZh6+UHUvzGY4hJ S5wD0aZPZrZkT0LDznK72 9InRvcCIvPjxj p6aqs6gznMz3KjT4ASQqo sJxfPxdXIL8a5XpYq10V8 9sIHdpZHRoPSIyMCUiIHZ ruIrvxh7pjE5n Ii8+KRAygLT8aBJ1lJ3tR eBjXvL4OMksH978NsXzzN PgSumuP37qS6IofLW+PHR fQjr6FWKzyOoq NF1yxAUvXIefMb5iNHC8Y tPvSnImBXaaS7TlFSAfra zwoibspEK1NUUmWMVgeT5 8Hs5riNvxSXUc kEEQtF5tvmqhj1koqirbL oFkAUQjABk9EYh9AKQpxM syMhJaSTL4ZkZ6CHP3nHW xjU3emThdpyog bJ0rP3MoPSCdqyhvMi74k F0wZsSoIdL8JZirAdo+TU 6QSXjwC9LZPOENUZFGH9A DWR85V9NcQsf3 KTAdqEviAP9ifJSaKWzqI s5ibRiiyGnaPR1uXAJyyc ieOYHsrN3cVPZxfCSkrHf jTJ2vHJSfoozo q105RqKbLNZ5WWPyyEVmA 6MpsO0iIpJkYCPiAVFtK7 JquDOiCNaxV139ARsrEiG 2COZtpbJvM2Ze YVVhiJqpWwK4z7Q9Vg0wQ I5cJj0xRYbqDK13OU82nS Bdq0S1vQH0D1DgPDDmfgt oovtfaVF0JWEo LKUmbA33gGJfKFyoKm5pd 8S7f401NLKsJCPqbR69Mb 3ozKysFDQfnRTTpO9wtjn dc7jfbduyAaWs GLQsQLp6NBe9SLGrtJlxI xNjJXO0DxL5OTY3gFFdoQ 8mgGduzuarzA8rErx+MzM zOXHkkmM1B1Hk Nlx0TKOuwMeyWN2kyPDjX WmuOb7ymKrfdHoxKM2zLQ YjvjpsOZKjrI5rTVZmlOL spVajII8oHTLq gssgs179ZkRvDGS4SSCub NOaG0XgkS5cNeMdIPXsFY FwZ3YqqRXyNFwoN260WXk rTvT9FWArmaEp V8JwFAOupDjuWcT5n3C1V o9XYQ2VNPM5S6GpYmb3BB NiqXwjPU7axLZhAVphZo5 tnYvqnJzpNO6c MTJuaxwmBZItkI3cFOPua ROudAihXC6lYEUevfdok7 92RfByTHX3FYJdyQDsO0O oiY6cFmLmFKTk NPSnD0FdhCDwTFaqT040D FrcWgD9CGVqjtZyX1TiSN GxlYaaTnJ4m8Q2Vx6OnMA nK3XfQ9s7B6Xc PjwvdHI+QE41HWTzAE03z UJjwASon3temIe3JqRsGH FxRWC0mIxeQItxp2LpYXD lC64hgDYxs3S8 LPPcgFdxkTSsMuAwwPL4b B9tAWnqyagib4upzhakRi lbd7vqrt11jG16O08rMIo pZHRoPSIzMCUi WVQurUtnys3qoM2yIo6+P WUerJJ7iQX4bS8rQrQsEt X6GRrjZ691YcRdfEVhRzy hx9wtc4cwgTh2 TzVbNNYfnaHhhLljIRT3y 6OgJe35B94sXJrmKSOoTI WaAIQoTKYyhKvmzl4byR8 wIi8+IV1vr8kh ms57hQ73bJB+BWVnPCZ3b QxzPJbfEOVccI3eUQxhSx J6AGVoFjJfqE74cUIaHOh eVh2keNoaoDze JU4fXBYwdcrud918JfMge 1sfCANlqRJlMIqeYFT9W0 7zr1Q1EACqXCHdMXA8mQT 6cN7lgTvazmzq bGVmdDsgdmVydGljYWwtY NdqZ695IRQqdIvkIuPsjT NvP0crbhRIFZ4wCyjjjQK +KMNoLGC7zDob QXrnZUCqsR9rKICmT6f6P dLvTdO7OAuvB3FvabJ1HL XphURvXENcxZXYeZ9stos lw1cjzzhiQpAc HOPyEJq8EDw0RFIwrVjfX eNtNCH8DeS8YTA1fZKvjB 2xtCgngkhtlY6oMlq+Rkl OOjwvdGQ+PHRk APZ8nAfdDNzaDLRhrC7aE DCnG6v0BtCbDlO8HVxjJ8 KtlrD9XFJvrGFxMIZkoJJ MeJ6vmglmf7hr olfzIkTtYSUwGUr2DXf3P WTgnQemXxXtFYA1LwE7DN E1zAPhkQ8xbWnptkwnaU6 wOyc+TVJOOjwv dGQ+DRVeLNM3pTriHEfkI BGppD4yRPZdJ7n5QvLnXm M5ECgzA5OdzfB1MTBrwUA mWLFljUZUfM0f sdovq1ermpraXoPnKEBpB Ck2OEp4TMRseZnlIxUsCQ Q2MwO7MYN1wQFtyD0vbDf alvyvtT6gRrf+ GJT1UTN5WD98MR58P4SyX jwvdGFibGU+PHRhYmxlIH dpZHRoPScxMDAlJyBzdHl vZR8kQz2sULFf LWN (more content not included)... Normal [facility] C Urineon 01-28-2025 C Urine Urine Culture ordere d as a result of parameters set on specific urine dip and urine microsopic results. Mixed skin, or urogenital daiana. Clinically insignificant [facility] Comment on above: Performed By: #### 7 [id number], [id number], [id number], [id number], [id number] #### [facility] (DEFAULT) [address] [place] [address] Cult,Urineon 01-28-2025 Cult,Urine Specimen Description .BLADDER URINE FROM CYSTOSCOPY Special Requests Site: Urine Culture NO GROWTH Report Status FINAL 01/28/2025 Normal [facility] Comment on above: Performed By: #### B MP #### [address] [address] Insurance Agent: Alejandro Salazar MD Culture, Urineon 01-28-2025 Microorganism identified Cx Nom (Unsp spec) NO GROWTH [facility] Service comment (Unsp spec) [Interp] Site: Urine [facility] Specimen Description .BLADDER URINE FROM CYSTOSCOPY [facility] Basic Metabolic Profon 01-27 Anion gap [Moles/Vol] 9 mmol/L Normal 9-16 [facility] Comment on above: Performed By: #### B MP #### [address] [address] Insurance Agent: Alejandro Salazar MD Calcium [Mass/Vol] 8.3 mg/dL Low 8.6-10.4 [facility] Comment on above: Performed By: #### B MP #### [facility] [employer] [address] [place] [address] Insurance Agent: Alejandro Salazar MD Chloride [Moles/Vol] 108 mmol/L High 98-107 [facility] Comment on above: Performed By: #### B MP #### [facility] [employer] [address] [place] [address] Insurance Agent: Alejandro Salazar MD CO2 [Moles/Vol] 22 mmol/L Normal 20-31 [facility] Comment on above: Performed By: #### B MP #### [facility] [employer] [address] [place] [phone] Insurance Agent: Alejandro Salazar MD Creatinine [Mass/Vol] 0.7 mg/dL Normal 0.6-0.9 [facility] Comment on above: Performed By: #### B MP #### [address] [address] Insurance Agent: Alejandro Salazar MD GFR/1.73 sq M.predicted among non-blacks MDRD (S/P/Bld) [Vol rate/Area] mL/min/{1.73_m2} Normal >60 [facility] Comment on above: Result Comment: These [...] secretion. Performed By: #### B MP #### [facility] [employer] [address] [place] [phone] Insurance Agent: Alejandro Salazar MD Glucose [Mass/Vol] 85 mg/dL Normal 74-99 [facility] Comment on above: Performed By: #### B MP #### [address] [address] Insurance Agent: Alejandro Salazar MD Potassium [Moles/Vol] 3.9 mmol/L Normal 3.7-5.3 [facility] Comment on above: Performed By: #### B MP #### [facility] [employer] [address] [place] [phone] Insurance Agent: Alejandro Salazar MD Sodium [Moles/Vol] 139 mmol/L Normal 136-145 [facility] Comment on above: Performed By: #### B MP #### [facility] [employer] [address] [place] [address] Insurance Agent: Alejandro Salazar MD Urea nitrogen [Mass/Vol] 11 mg/dL Normal 6-20 [facility] Comment on above: Performed By: #### B #### [facility] [employer] [address] [place] [address] Insurance Agent: Alejandro Salazar MD Basic metabolic panelon 01-17 Anion gap [Moles/Vol] 9 mmol/L 9 - 16 mmol/L [facility] Calcium [Mass/Vol] 8.3 mg/dL Low 8.6 - 10. 4 mg/dL [facility] Chloride [Moles/Vol] 108 mmol/L High 98 - 10 7 mmol/L [facility] CO2 [Moles/Vol] 22 mmol/L 20 - 31 mmol/L [facility] Creatinine [Mass/Vol] 0.7 mg/dL 0.6 - 0.9 mg/dL [facility] [employer] Est, Glohayley Lundt Rate - PINF [facility] Comment on above: These results are not [...] [Mass/Vol] 85 mg/dL 74 - 99 mg/dL [facility] Interpretation and review of laboratory results Abnormal [facility] Potassium [Moles/Vol] 3.9 mmol/L 3.7 - 5.3 mmol/L [facility] Sodium [Moles/Vol] 139 mmol/L 136 - 145 mmol/L [facility] Urea nitrogen [Mass/Vol] 11 mg/dL 6 - 20 mg/dL [facility] CBC auto differentialon 01-17 Basophils (Bld) [#/Vol] 0.04 10*3/uL [facility] Basophils/100 WBC (Bld) 1 % 0 - 2 % [facility] Eosinophils (Bld) [#/Vol] 0.14 10*3/uL [facility] Eosinophils/100 WBC (Bld) 4 % 1 - 4 % [facility] Erythrocyte distribution width (RBC) [Ratio] 12.6 % 11.8 - 14.4 % [facility] Hematocrit (Bld) [Volume fraction] 34.2 % Low 36.3 - 47.1 % [facility] Hemoglobin (Bld) [Mass/Vol] 10.7 g/dL Low 11.9 - 15.1 g/dL [facility] Immature granulocytes (Bld) [#/Vol] [facility] Immature granulocytes/100 WBC (Bld) 0 % 0 [facility] Interpretation and review of laboratory results Abnormal [facility] Lymphocytes/100 WBC (Bld) 55 % High 24 - 43 % [facility] Lymphocytes/100 WBC (Bld) 2.11 % [facility] MCH (RBC) [Entitic mass] 27.1 pg 25.2 - 33.5 pg [facility] MCHC (RBC) [Mass/Vol] 31.3 g/dL 28.4 - 34.8 g/dL [facility] MCV (RBC) [Entitic vol] 86.6 fL 82.6 - 102.9 fL [facility] Monocytes/100 WBC (Bld) 9 % 3 - 12 % [facility] Monocytes/100 WBC (Bld) 0.35 % [facility] Neutrophils/100 WBC (Bld) 31 % Low 36 - 65 % [facility] Nucleated RBC/100 WBC (Bld) [Ratio] 0 % 0.0 per 100 WBC [facility] Platelet mean volume (Bld) [Entitic vol] 9.1 fL 8.1 - 13.5 fL [facility] Platelets (Bld) [#/Vol] 238 10*3/uL [facility] RBC (Bld) [#/Vol] 3.95 10*6/uL 3.95 - 5.1 1 m/uL [facility] Segmented neutrophils/100 WBC (Bld) 1.21 % Low [facility] WBC other (Bld) [#/Vol] 3.9 Bon [facility] Bon [facility] CBC with Diffon 01-27-2025 Abs. Basophil 0.04 k/uL Normal 0.00-0.20 [facility] Comment on above: Performed By: #### B MP #### [address] [address] Insurance Agent: Alejandro Salazar MD Abs.Imm.Granulocyte <0.03 Normal 0.00-0.30 [facility] Comment on above: Performed By: #### B MP #### [place] [address] Insurance Agent: Alejandro Salazar MD Abs.Neutrophil (Seg) 1.21 k/uL Low 1.50-8.10 [facility] Comment on above: Performed By: #### B MP #### [place] [address] Insurance Agent: Alejandro Salazar MD Basophils/100 WBC (Bld) 1 % Normal 0-2 [facility] Comment on above: Performed By: #### B MP #### [place] [address] Insurance Agent: Alejandro Salazar MD Eosinophils (Bld) [#/Vol] 0.14 10*3/uL Normal 0.00-0.44 [facility] Comment on above: Performed By: #### B MP #### [address] [address] Insurance Agent: Alejandro Salazar MD Eosinophils/100 WBC (Bld) 4 % Normal 1-4 [facility] Comment on above: Performed By: #### B MP #### [address] [address] Insurance Agent: Alejandro Salazar MD Erythrocyte distribution width (RBC) [Ratio] 12.6 % Normal 11.8-14.4 [facility] Comment on above: Performed By: #### B MP #### [address] [address] Insurance Agent: Alejandro Salazar MD Hematocrit (Bld) [Volume fraction] 34.2 % Low 36.3-47.1 [facility] Comment on above: Performed By: #### B MP #### [address] [address] Insurance Agent: Alejandro Salazar MD Hemoglobin (Bld) [Mass/Vol] 10.7 g/dL Low 11.9-15.1 [facility] Comment on above: Performed By: #### B MP #### [address] [address] Insurance Agent: Alejandro Salazar MD Immature granulocytes/100 WBC (Bld) 0 % Normal 0 [facility] Comment on above: Performed By: #### B MP #### [address] [address] Insurance Agent: Alejandro Salazar MD Lymphocytes (Bld) [#/Vol] 2.11 10*3/uL Normal 1.10-3.70 [facility] Comment on above: Performed By: #### B MP #### [address] [address] Insurance Agent: Alejandro Salazar MD Lymphocytes/100 WBC (Bld) 55 % High 24-43 [facility] Comment on above: Performed By: #### B MP #### [address] [address] Insurance Agent: Alejandro Salazar MD MCH (RBC) [Entitic mass] 27.1 pg Normal 25.2-33.5 [facility] Comment on above: Performed By: #### B MP #### [address] [address] Insurance Agent: Alejandro Salazar MD MCHC (RBC) [Mass/Vol] 31.3 g/dL Normal 28.4-34.8 [facility] Comment on above: Performed By: #### B MP #### [address] [address] Insurance Agent: Alejandro Salazar MD MCV (RBC) [Entitic vol] 86.6 fL Normal 82.6-102.9 [facility] Comment on above: Performed By: #### B MP #### [address] [address] Insurance Agent: Alejandro Salazar MD Monocytes (Bld) [#/Vol] 0.35 10*3/uL Normal 0.10-1.20 [facility] Comment on above: Performed By: #### B MP #### [address] [address] Insurance Agent: Alejandro Salazar MD Monocytes/100 WBC (Bld) 9 % Normal 3-12 [facility] Comment on above: Performed By: #### B MP #### [address] [address] Insurance Agent: Alejandro Salazar MD Neutrophil (Seg) 31 % Low 36-65 [facility] Comment on above: Performed By: #### B MP #### [address] [address] Insurance Agent: Alejandro Salazar MD NRBC Automated 0.0 per 100 WBC Normal 0.0 [facility] Comment on above: Performed By: #### B MP #### [address] [address] Insurance Agent: Alejandro Salazar MD Platelet mean volume (Bld) [Entitic vol] 9.1 fL Normal 8.1-13.5 [facility] Comment on above: Performed By: #### B MP #### [facility] [place] [address] Insurance Agent: Alejandro Salazar MD Platelets (Bld) [#/Vol] 238 10*3/uL Normal 138-453 [facility] Comment on above: Performed By: #### B MP #### [facility] [address] [place] [address] Insurance Agent: Alejandro Salazar MD RBC (Bld) [#/Vol] 3.95 10*6/uL Normal 3.95-5.11 [facility] Comment on above: Performed By: #### B MP #### [facility] [address] [place] [address] Insurance Agent: Alejandro Salazar MD WBC (Bld) [#/Vol] 3.9 10*3/uL Normal 3.5-11.3 [facility] Comment on above: Performed By: #### B MP #### [facility] [employer] [address] [place] [address] Insurance Agent: Alejandro Salazar MD Consent Formson 01-27-2025 Consent Forms [id number] 0 [id number]. [id number] [facility] Cult,Urineon 01-27-2025 Cult,Urine Specimen Description .URINE Culture NO SIGNIFICANT GROWTH Report Status FINAL 01/27/2025 Normal [facility] Comment on above: Performed By: #### B MP #### [facility] [employer] [address] [place] [address] Insurance Agent: Alejandro Salazar MD Culture, Urineon 01-27-2025 Microorganism identified Cx Nom (Unsp spec) NO SIGNIFICANT GROWTH [facility] .[facility]INE [facility] [facility] FLUORO FOR SURGICAL PROCEDUR ESon 01-27-2025 FLUORO FOR SURGICAL PROCEDURES Radiology exam is complete. No Radiologist dictation. Please follow up with ordering provider. Final result Normal [facility] Guidance-- during surgeryon 01-27-2025 Radiology exam is complete. No Radiologist dictation. Please follow up with ordering provider. MHPN RIS CONSOLIDATED .Auto Diff 1on 01-26-2025 Auto [place] % 10 % Normal 1-12 [facility] Comment on above: Performed By: #### 7 [id number], [id number], [id number], [id number], [id number] #### [facility] (DEFAULT) [address] [place] [address] Baso Abs# 0.0 x10 Normal 0.0-0.2 [facility] Comment on above: Performed By: #### 7 [id number], [id number], [id number], [id number], [id number] #### [facility] (DEFAULT) [address] [place] [address] Basophils/100 WBC (Bld) 0.7 % Normal 0.2-2.0 [facility] Comment on above: Performed By: #### 7 [id number], [id number], [id number], [id number], [id number] #### [facility] (DEFAULT) [address] [place] [address] Eos Abs# 0.1 x10 Normal 0.0-0.4 [facility] Comment on above: Performed By: #### 7 624390, [id number], [id number], [id number], [id number] #### [facility] (DEFAULT) [address] [place] [address] Eosinophils/100 WBC (Bld) 2.4 % Normal 0.9-4.0 [facility] Comment on above: Performed By: #### 7 540347, [id number], [id number], [id number], [id number] #### [facility] (DEFAULT) [address] [place] [address] Lymph Abs# 1.8 x10 Normal 1.3-2.9 [facility] Comment on above: Performed By: #### 7 106307, [id number], [id number], [id number], [id number] #### [facility] (DEFAULT) [address] [place] [address] Lymphocytes/100 WBC (Bld) 38 % Normal 14-48 [facility] Comment on above: Performed By: #### 7 [id number], [id number], [id number], [id number], [id number] #### [facility] (DEFAULT) [address] [place] [address] [place] Abs# 0.5 x10 Normal 0.0-0.8 [facility] Comment on above: Performed By: #### 7 [id number], [id number], [id number], [id number], [id number] #### [facility] (DEFAULT) [address] [place] [address] Neut Abs# 2.4 x10 Normal 1.5-9.2 [facility] Comment on above: Performed By: #### 7 [id number], [id number], [id number], [id number], [id number] #### [facility] (DEFAULT) [address] [place] [address] Neutrophils/100 WBC (Bld) 49 % Normal 44-88 [facility] Comment on above: Performed By: #### 7 [id number], [id number], [id number], [id number], [id number] #### [facility] (DEFAULT) [address] [place] [address] Basic Metabolic Panelon 04-1 0 Anion gap [Moles/Vol] 12 mmol/L 9 - 16 mmol/L [facility] Calcium [Mass/Vol] 8.6 mg/dL 8.6 - 10. 4 mg/dL [facility] Chloride [Moles/Vol] 106 mmol/L 98 - 10 7 mmol/L [facility] CO2 [Moles/Vol] 21 mmol/L 20 - 31 mmol/L [facility] Creatinine [Mass/Vol] 0.9 mg/dL 0.6 - 0.9 mg/dL [facility] Est, Glom Filt Rate 87 - PINF [facility] Comment on above: These results are not [...] 126 mg/dL High 74 - 99 mg/dL [facility] Interpretation and review of laboratory results Abnormal [facility] Potassium [Moles/Vol] 3.7 mmol/L 3.7 - 5.3 mmol/L [facility] Sodium [Moles/Vol] 139 mmol/L 136 - 145 mmol/L [facility] Urea nitrogen [Mass/Vol] 12 mg/dL 6 - 20 mg/dL [facility] Basic Metabolic Profon 01-26 Anion gap [Moles/Vol] 12 mmol/L Normal 9-16 [facility] Comment on above: Performed By: #### B MP #### [facility] [employer] [address] [place] [address] Insurance Agent: Alejandro Salazar MD Calcium [Mass/Vol] 8.6 mg/dL Normal 8.6-10.4 [facility] Comment on above: Performed By: #### B MP #### [facility] [employer] [address] [place] [address] Insurance Agent: Alejandro Salazar MD Chloride [Moles/Vol] 106 mmol/L Normal 98-107 [facility] Comment on above: Performed By: #### B MP #### [facility] [employer] [address] [place] [address] Insurance Agent: Alejandro Salazar MD CO2 [Moles/Vol] 21 mmol/L Normal 20-31 [facility] Comment on above: Performed By: #### B MP #### [facility] [employer] [address] [place] [address] [phone] Insurance Agent: Alejandro Salazar MD Creatinine [Mass/Vol] 0.9 mg/dL Normal 0.6-0.9 [facility] Comment on above: Performed By: #### B MP #### [facility] [employer] [address] [place] [address] Insurance Agent: Alejandro Salazar MD GFR/1.73 sq M.predicted among non-blacks MDRD (S/P/Bld) [Vol rate/Area] 87 mL/min/{1.73_m2} Normal >60 [facility] Comment on above: Result Comment: These [...] secretion. Performed By: #### B MP #### [facility] [employer] [address] [place] [address] Insurance Agent: Alejandro Salazar MD Glucose [Mass/Vol] 126 mg/dL High 74-99 [facility] Comment on above: Performed By: #### B MP #### [address] [address] Insurance Agent: Alejandro Salazar MD Potassium [Moles/Vol] 3.7 mmol/L Normal 3.7-5.3 [facility] Comment on above: Performed By: #### B MP #### [facility] [employer] [address] [place] [address] Insurance Agent: Alejandro Salazar MD Sodium [Moles/Vol] 139 mmol/L Normal 136-145 [facility] Comment on above: Performed By: #### B MP #### [address] [address] Insurance Agent: Alejandro Salazar MD Urea nitrogen [Mass/Vol] 12 mg/dL Normal 6-20 [facility] Comment on above: Performed By: #### B MP #### [employer] [address] [place] [address] Insurance Agent: Alejandro Salazar MD [facility] 01-26-2025 Erythrocyte distribution width (RBC) [Ratio] 12.7 % 11.8 - 14.4 % [facility] Hematocrit (Bld) [Volume fraction] 38.1 % 36.3 - 47.1 % [facility] Hemoglobin (Bld) [Mass/Vol] 12 g/dL 11.9 - 15.1 g/dL [facility] MCH (RBC) [Entitic mass] 27.9 pg 25.2 - 33.5 pg [facility] MCHC (RBC) [Mass/Vol] 31.5 g/dL 28.4 - 34.8 g/dL [facility] MCV (RBC) [Entitic vol] 88.6 fL 82.6 - 102.9 fL [facility] Nucleated RBC/100 WBC (Bld) [Ratio] 0 % 0.0 per 100 WBC [facility] Platelet mean volume (Bld) [Entitic vol] 9 fL 8.1 - 13.5 fL [facility] Platelets (Bld) [#/Vol] 261 10*3/uL [facility] RBC (Bld) [#/Vol] 4.3 10*6/uL 3.95 - 5.1 1 m/uL [facility] WBC other (Bld) [#/Vol] 5.9 [facility] Erythrocyte distribution width (RBC) [Ratio] 12.7 % Normal 11.8-14.4 [facility] Comment on above: Performed By: #### B MP #### [employer] [address] [place] [address] Insurance Agent: Alejandro Salazar MD Hematocrit (Bld) [Volume fraction] 38.1 % Normal 36.3-47.1 [facility] Comment on above: Performed By: #### B MP #### [employer] [address] [place] [phone] Insurance Agent: Alejandro Salazar MD Hemoglobin (Bld) [Mass/Vol] 12.0 g/dL Normal 11.9-15.1 [facility] Comment on above: Performed By: #### B MP #### [address] [id number] Insurance Agent: Alejandro Salazar MD MCH (RBC) [Entitic mass] 27.9 pg Normal 25.2-33.5 [facility] Comment on above: Performed By: #### B MP #### [address] [id number] Insurance Agent: Alejandro Salazar MD MCHC (RBC) [Mass/Vol] 31.5 g/dL Normal 28.4-34.8 [facility] Comment on above: Performed By: #### B MP #### [address] [id number] Insurance Agent: Alejandro Salazar MD MCV (RBC) [Entitic vol] 88.6 fL Normal 82.6-102.9 [facility] Comment on above: Performed By: #### B MP #### [address] [id number] Insurance Agent: Alejandro Salazar MD NRBC Automated 0.0 per 100 WBC Normal 0.0 [facility] Comment on above: Performed By: #### B MP #### [address] [id number] Insurance Agent: Alejandro Salazar MD Platelet mean volume (Bld) [Entitic vol] 9.0 fL Normal 8.1-13.5 [facility] Comment on above: Performed By: #### B MP #### [address] [id number] Insurance Agent: Alejandro Salazar MD Platelets (Bld) [#/Vol] 261 10*3/uL Normal 138-453 [facility] Comment on above: Performed By: #### B MP #### [address] [address] Insurance Agent: Alejandro Salazar MD RBC (Bld) [#/Vol] 4.30 10*6/uL Normal 3.95-5.11 [facility] Comment on above: Performed By: #### B MP #### [address] [address] Insurance Agent: Alejandro Salazar MD WBC (Bld) [#/Vol] 5.9 10*3/uL Normal 3.5-11.3 [facility] Comment on above: Performed By: #### B MP #### [address] [address] Insurance Agent: Alejandro Salazar MD CBC w/ Auto Diffon Erythrocyte distribution width (RBC) [Ratio] 13.6 % Normal 11.5-15.0 [facility] Comment on above: Performed By: #### 7 934495, [id number], 8885445652, 42420130, 243986206 #### [facility] (DEFAULT) [address] [place] [address] Hematocrit (Bld) [Volume fraction] 37.0 % Normal 33.7-40.4 [facility] Comment on above: Performed By: #### 7 255502, 8517619030, 8958152378, 53291949, 580000675 #### [facility] (DEFAULT) [address] [place] [address] Hemoglobin (Bld) [Mass/Vol] 12.7 g/dL Normal 11.3-15.9 [facility] Comment on above: Performed By: #### 7 408245, 8726095119, 8796140988, 65386870, 360362358 #### [facility] (DEFAULT) [address] [place] [address] 40178 Man Diff? Auto Invalid Interpretation Code [facility] Comment on above: Performed By: #### 7 849105, [id number], 4880139465, 97529529, 498774303 #### [facility] (DEFAULT) [address] [place] [address] MCH (RBC) [Entitic mass] 29 pg Normal 24-34 [facility] Comment on above: Performed By: #### 7 835472, 9540131941, 8949776443, 22290472, 848088279 #### [facility] (DEFAULT) [address] [place] [address] MCHC (RBC) [Mass/Vol] 34 g/dL Normal 26-37 [facility] Comment on above: Performed By: #### 7 914590, 7807538026, 5503669855, 15870001, 093103811 #### [facility] (DEFAULT) [address] [place] [address] MCV (RBC) [Entitic vol] 84 fL Normal 81-100 [facility] Comment on above: Performed By: #### 7 299574, 4651094077, 4580920705, 30277431, 676317472 #### [facility] (DEFAULT) [address] [place] [address] Platelet 287 x10 Normal 138-427 [facility] Comment on above: Performed By: #### 7 352753, 6988689199, 3719898284, 13637517, 856697208 #### [facility] (DEFAULT) [address] [place] [address] Platelet mean volume (Bld) [Entitic vol] 7.3 fL Normal 6.3-10.2 [facility] Comment on above: Performed By: #### 7 105957, 2348144080, 0767983428, 52100660, 727718816 #### [facility] (DEFAULT) [address] [place] [address] RBC 4.39 x10 Normal 3.70-5.30 [facility] Comment on above: Performed By: #### 7 211433, 6241880982, 0409541084, 72775777, 780826385 #### [facility] (DEFAULT) [address] [place] [address] WBC 4.8 x10 Normal 3.5-10.5 [facility] Comment on above: Performed By: #### 7 705582, 0774657205, 1871322040, 13689974, 516918063 #### [facility] (DEFAULT) [address] [place] [address] CMP Standardon 01-26-2025 eGFR Non AA >60 Invalid Interpretation Code [facility] Comment on above: Performed By: #### 7 912981, [id number], 0145526834, 45271491, 724086549 #### [facility] (DEFAULT) [address] [place] [address] eGFR AA >60 Invalid Interpretation Code [facility] Comment on above: Performed By: #### 7 976621, 3073663354, 3577220396, 62540244, 828954516 #### [facility] (DEFAULT) [address] [place] [address] Albumin [Mass/Vol] 3.7 g/dL Normal 3.5-5.0 [facility] Comment on above: Performed By: #### 7 119841, 5572231506, 7060539165, 95599602, 604910344 #### [facility] (DEFAULT) [address] [place] [address] Albumin/Globulin [Mass ratio] 1.0 {ratio} Low 1.4-2.6 [facility] Comment on above: Performed By: #### 7 631356, 9822447878, 1474569050, 56516136, 566259647 #### [facility] (DEFAULT) [address] [place] [address] Alk Phos 70 IU/L Normal 32-91 [facility] Comment on above: Performed By: #### 7 427763, 1910855604, 6565251614, 95433140, 798769300 #### [facility] (DEFAULT) [address] [place] [address] ALT [Catalytic activity/Vol] 75.0 U/L High 14.0-54.0 [facility] Comment on above: Performed By: #### 7 038972, 2208478229, 2836876549, 26996372, 621052999 #### [facility] (DEFAULT) [address] [place] [address] AST [Catalytic activity/Vol] 27 U/L Normal 15-41 [facility] Comment on above: Performed By: #### 7 177462, 4178078375, 8405413214, 15016185, 727202370 #### [facility] (DEFAULT) [address] [place] [address] Bili Total 0.7 mg/dL Normal 0.3-1.2 [facility] Comment on above: Performed By: #### 7 369986, 5696302118, 6351849221, 45964097, 312163026 #### [facility] (DEFAULT) [address] [place] [address] Creatinine [Mass/Vol] 0.94 mg/dL Normal 0.60-1.30 [facility] Comment on above: Performed By: #### 7 854149, 9606755162, 1517181794, 35860696, 116140168 #### [facility] (DEFAULT) [address] [place] [address] Globulin (S) [Mass/Vol] 3.5 g/dL Normal 1.5-4.3 [facility] Comment on above: Performed By: #### 7 367637, 1656551450, 3274980674, 53511438, 992986792 #### [facility] (DEFAULT) [address] [place] [address] Osmolality 277 mOsm/L Invalid Interpretation Code [facility] Comment on above: Performed By: #### 7 875317, 8606850822, 3492048897, 10674736, 620108601 #### [facility] (DEFAULT) [address] [place] [address] Protein [Mass/Vol] 7.2 g/dL Normal 6.5-8.1 [facility] Comment on above: Performed By: #### 7 291364, 4743414649, 3078919718, 26451610, 979964899 #### [facility] (DEFAULT) [address] [place] [address] Urea nitrogen [Mass/Vol] 13 mg/dL Normal 8-26 [facility] Comment on above: Performed By: #### 7 362226, 0175309911, 9100314888, 57350482, 282122023 #### [facility] (DEFAULT) [address] [place] [address] Urea nitrogen/Creatinine [Mass ratio] 13.8 mg/mg Normal 4.6-16.2 [facility] Comment on above: Performed By: #### 7 839906, 9007590037, 6925927085, 04689620, 289868635 #### [facility] (DEFAULT) [address] [place] [address] Anion gap [Moles/Vol] 13.6 mmol/L Normal 5.0-19.0 [facility] Comment on above: Performed By: #### 7 530654, 8110568653, 9169291158, 66250796, 874565545 #### [facility] (DEFAULT) [address] [place] [address] Calcium [Mass/Vol] 9.4 mg/dL Normal 8.9-10.3 [facility] Comment on above: Performed By: #### 7 858672, 3933604161, 4225516890, 43450390, 745291450 #### [facility] (DEFAULT) [address] [place] [address] Chloride [Moles/Vol] 104 mmol/L Normal 101-111 [facility] Comment on above: Performed By: #### 7 888272, 1576258618, 6563582920, 63666524, 852040860 #### [facility] (DEFAULT) [address] [place] [address] CO2 [Moles/Vol] 25 mmol/L Normal 21-32 [facility] Comment on above: Performed By: #### 7 957666, 2529835064, 1316474759, 62842258, 206277174 #### [facility] (DEFAULT) [address] [place] [address] Glucose [Mass/Vol] 93.0 mg/dL Normal 74.0-118.0 [facility] Comment on above: Performed By: #### 7 547043, 7131886553, 3665481671, 39463515, 675014504 #### [facility] (DEFAULT) [address] [place] [address] Potassium [Moles/Vol] 3.6 mmol/L Normal 3.6-5.1 [facility] Comment on above: Performed By: #### 7 486364, 5244742560, 6124687416, 66698393, 346655963 #### [facility] (DEFAULT) [address] [place] [address] Sodium [Moles/Vol] 139.0 mmol/L Normal 136.0-144.0 [facility] Comment on above: Performed By: #### 7 204959, 2004312447, 9415626390, 26240494, 040089065 #### [facility] (DEFAULT) [address] [place] [address] Abdomen/Pelvis w/o Contra ston 01-26-2025 CT [...] MD 01/26/25 2:00 pm Technologist: Boogie COLE [facility] ED Note-Nursingon 01-26-2025 ED Note-Nursing Pt stated she [facility] and Dr. Plata is requesting records. Track Machine Operator Repairer called [facility] to get records faxed. Stated they would be faxing results over. [facility] Extra Blueon 01-26-2025 Tube Collected Yes Invalid Interpretation Code [facility] Comment on above: Performed By: #### 7 173898, [id number], 4243319231, 86142161, 762095080 #### [facility] (DEFAULT) [address] [place] [address] Microscopic Urinalysison Bacteria LM Ql (Urine sed) None None [facility] Casts LM.LPF (Urine sed) [#/Area] 2 TO 5 HYALINE Reference range defined for non-centrifuged specimen. [facility] Epithelial cells LM.HPF (Urine sed) [#/Area] 2 TO 5 [facility] RBC LM.HPF (Urine sed) [#/Area] TOO NUMEROUS TO COUNT [facility] Comment on above: Reference range defi salty for non-centrifuged specimen. WBC LM.HPF (Urine sed) [#/Area] 20 TO 50 [facility] Bon [facility] Test Serum 1on Preg Serum Internal Control [place] [facility] Comment on above: Performed By: #### 7 353503, [id number], 1518035426, 98672433, 156226755 #### [facility] (DEFAULT) [address] [place] [address] Test Serum Qual Negative [facility] Comment on above: Performed By: #### 7 978543, 9857470139, 4248456944, 08669715, 862844400 #### [facility] (DEFAULT) [address] [place] [address] Stone Analysison 01-26-2025 Calculi description See Note [facility] Comment on above: Result Comment: (NOT E) Specimen consists of one rondon sample. The total weight is less than 2 mg. Performed By: #### A STONE #### [email or web address] [address] [place] [phone] Insurance Agent: Mane Tolbert MD Composition See Note [facility] Comment on above: Result Comment: (NOT [...] composition determined by FTIR analysis. Performed By: [email or web address] [address] [place] [address] Clay Stain Mixer: Jorge Melendrez MD, PhD CLIA Number: [id number] Performed By: #### A STONE #### [email or web address] [address] [place] [address] Insurance Agent: Mane Tolbert MD Mass See Note [facility] Comment on above: Result Comment: (NOT E) Sample mass < 2 mg. Small sample size prevents accurate weight determination. Performed By: #### A STONE #### [address] [address] Insurance Agent: Mane Tolbert MD Transfer Noteon 01-26-2025 Transfer Note Patient requires transfer to [facility] for a diagnosis of hydronephrosis. 1527- Kylie from [facility], Tamiko Mercedes NP paged, hospitalist speaks to Dr. Plata, accepts, top gun is open. 1539- Called [facility], self contained behavior unit teacher Austin gave 20 minute ETA. 1547- [facility] arrives 1550- [facility] calls, bed assignment given, room 321 bed 2, report number [id number] 1610- [facility] departs [Electronically Signed on: 01/26/2025 16:28 EDT] Beth Rodriguez RN [Verified on: 01/26/2025 16:28 EDT] Beth Rodriguez RN 1630- Dr. Plata signs physician note, this note was faxed to [facility] at fax number [phone]. [Electronically Signed on: 01/26/2025 16:31 EDT] Beth Rodriguez RN Normal [facility] UA [id number] 01-26-2025 UA Bacteria Trace Normal [facility] Comment on above: Order Comment: Urina lysis Microscopic order added on by [employer] Expert Rules system. Performed By: #### 7 265740, 7010567355, 2234927711, 40254221, 828341462 #### [facility] (DEFAULT) [address] [place] [address] UA Comment. See Comment Invalid Interpretation Code [facility] Comment on above: Order Comment: Urina lysis Microscopic order added on by [employer] system. Result Comment: 4+ S ulfa Crystals present Performed By: #### 7 212067, 5390607894, 3067939174, 46284285, 921750475 #### [facility] (DEFAULT) [address] [place] [address] UA RBC Gross Blood [facility] Comment on above: Order Comment: Urina lysis Microscopic order added on by [employer] system. Performed By: #### 7 461952, [id number], 7260659159, 72961764, 623713506 #### [facility] (DEFAULT) [address] [place] [address] UA Squam Epi Moderate Normal [facility] Comment on above: Order Comment: Urina lysis Microscopic order added on by [employer] system. Performed By: #### 7 364012, 4892925763, 1511433865, 08936976, 107743810 #### [facility] (DEFAULT) [address] [place] [address] UA WBC 3-5 Normal [facility] Comment on above: Order Comment: Urina lysis Microscopic order added on by [employer] system. Performed By: #### 7 973973, 2892092470, 7224992305, 69633119, 781315643 #### [facility] (DEFAULT) [address] [place] [address] UA w Culture if Ind Standard on 01-26-2025 Breakpoint UA [facility] Comment on above: Performed By: #### 7 261798, 3531755663, 3001828771, 83255688, 478497634 #### [facility] (DEFAULT) [address] [place] [address] Color (U) Red Normal [facility] Comment on above: Result Comment: Test cannot be satisfactorily determined due to intensely colored urine. Parameters which will be affected are: GLU, BRAIN, URO, KET, BLO, PRO, NIT, LISSA, SG, AND pH. Performed By: #### 7 903318, [id number], 6303873053, 37217984, 611834293 #### [facility] (DEFAULT) [address] [place] [address] Culture? Yes Normal [facility] Comment on above: Result Comment: Resu lt created by rule GL_MAGR_ADD_UA_CULT Result created by rule GL_MAGR_ADD_UA_CULT1 Performed By: #### 7 705439, 6265065069, 4218892647, 10649377, 633859824 #### [facility] (DEFAULT) [address] [place] [address] Glucose (U) [Mass/Vol] Negative Normal [facility] Comment on above: Performed By: #### 7 031005, 8472425913, 7504703603, 53183402, 417671661 #### [facility] (DEFAULT) [address] [place] [address] Ketones Ql (U) Negative Normal [facility] Comment on above: Performed By: #### 7 065838, 1177385815, 6170048397, 51506336, 718934916 #### [facility] (DEFAULT) [address] [place] [address] Micro? Indicated Invalid Interpretation Code [facility] Comment on above: Result Comment: Resu lt created by rule GL_MAGR_ADD_UA_MICRO Performed By: #### 7 053755, 7694929519, 9171998747, 57940793, 407076617 #### [facility] (DEFAULT) [address] [place] [address] UA Bilirubin SMALL Abnormal [facility] Comment on above: Performed By: #### 7 474730, 2194765236, 5205553788, 34802160, 096420491 #### [facility] (DEFAULT) [address] [place] [address] UA Blood LARGE Abnormal NEGATIVE [facility] Comment on above: Performed By: #### 7 908398, 3306007491, 5925010569, 50077563, 809423026 #### [facility] (DEFAULT) [address] [place] [address] UA Clarity CLOUDY Abnormal CLEAR [facility] Comment on above: Performed By: #### 7 674070, 0430457800, 4671504519, 70155379, 471165867 #### [facility] (DEFAULT) [address] [place] [address] UA Leuk Est MODERATE Abnormal NEGATIVE [facility] Comment on above: Performed By: #### 7 517632, 7392186053, 4751667260, 89240158, 371974601 #### [facility] (DEFAULT) [address] [place] [address] UA Nitrite Negative Normal NEGATIVE [facility] Comment on above: Performed By: #### 7 164883, 0881414579, 8548958167, 32309366, 692896346 #### [facility] (DEFAULT) [address] [place] [address] 23304 UA pH 7.0 Normal 5-8 [facility] Comment on above: Performed By: #### 7 664432, 8887696481, 4063145602, 30949918, 613588622 #### [facility] (DEFAULT) [address] [place] [address] 694[address] UA Protein 100 Abnormal NEGATIVE [facility] Comment on above: Performed By: #### 7 227906, 1544034177, 2901867204, 19232051, 608589231 #### [facility] (DEFAULT) [address] [place] [address] 18586 UA Spec Grav 1.020 Normal 1.001-1.035 [facility] Comment on above: Performed By: #### 7 316993, 5578621601, 9489434975, 62400371, 225815562 #### [facility] (DEFAULT) [address] [place] [address] UA Urobilinogen 0.2 mg/dL Normal 0.2-1.0 [facility] Comment on above: Performed By: #### 7 885722, 1192146213, 3932213672, 85223108, 507238051 #### [facility] (DEFAULT) [address] [place] [address] 6[address]31 Urine Source Clean Catch Normal [facility] Comment on above: Performed By: #### 7 399576, 4216470618, 0805641052, 60783724, 104222669 #### [facility] (DEFAULT) [address] [place] [address] UA w/Reflex Cultureon 2024 Bilirubin, SemiQt,Ur Negative Normal NEG [facility] Comment on above: Performed By: #### U AX, UMICAO #### [facility] [address] [place] [phone] Insurance Agent: Alejandro Salazar MD Blood, Urine LARGE Abnormal NEG [facility] Comment on above: Performed By: #### U AX, UMICAO #### [facility] [address] [place] [address] 8[address] Insurance Agent: Alejandro Salazar MD Clarity (U) Cloudy Abnormal CLEAR [facility] Comment on above: Performed By: #### U AX, UMICAO #### [facility] [employer] [address] [place] [phone] Insurance Agent: Alejandro Salazar MD Color (U) [place] Abnormal YEL [facility] Comment on above: Result Comment: INTE RPRET WITH CAUTION DUE TO INTENSE COLOR OF URINE. Performed By: #### U AX, UMICAO #### [facility] [employer] [address] [place] [address] 332[address] Insurance Agent: Alejandro Salazar MD Glucose Ql (U) Negative Normal NEG [facility] Comment on above: Performed By: #### U AX, UMICAO #### [facility] [address] [place] [address] 50132 Insurance Agent: Alejandro Salazar MD Ketones Ql (U) Negative Normal NEG [facility] Comment on above: Performed By: #### U AX, UMICAO #### [facility] [employer] [address] [place] [address] 0[address] Insurance Agent: Alejandro Salazar MD Leukocyte esterase Test strip Ql (U) MODERATE Abnormal NEG [facility] Comment on above: Performed By: #### U AX, UMICAO #### [employer] [facility] [address] Insurance Agent: Alejandro Salazar MD Nitrite,Ur Negative Normal NEG [facility] Comment on above: Performed By: #### U AX, UMICAO #### [facility] [address] [place] [address] 36738 Insurance Agent: Alejandro Salazar MD PH,Ur 6.5 Normal 5.0-8.0 [facility] Comment on above: Performed By: #### U AX, UMICAO #### [facility] [address] [place] [address] Insurance Agent: Alejandro Salazar MD Protein Ql (U) 2+ mg/dL Abnormal NEG [facility] Comment on above: Performed By: #### U AX UMICAO #### [facility] [employer] [address] [place] [address] Insurance Agent: Alejandro Salazar MD Spec. Disputanta,Ur 1.016 Normal 1.005-1.030 [facility] Comment on above: Performed By: #### U AX UMICAO #### [facility] [address] [place] [address] 101[address] Insurance Agent: Alejandro Salazar MD Urobilinogen,Ur Normal Normal 0.0-1.0 [facility] Comment on above: Performed By: #### U AX, UMICAO #### [employer] [address] [place] [address] Insurance Agent: Alejandro Salazar MD Urinalysis with Reflex to Cu ltureon 01-26-2025 Bilirubin Ql (U) Negative NEGATIVE [facility] [employer] Clarity (U) Cloudy Abnormal Clear [employer] Color (U) [place] Abnormal Yellow [employer] Comment on above: INTERPRET WITH CAUTI ON DUE TO INTENSE COLOR OF URINE. Glucose Test strip (U) [Mass/Vol] Negative NEGATIVE mg/dL [employer] Hemoglobin Auto test strip Ql (U) LARGE Abnormal NEGATIVE [facility] Interpretation and review of laboratory results Abnormal [facility] Ketones (U) [Mass/Vol] Negative NEGATIVE mg/dL [facility] Leukocyte esterase Test strip Ql (U) MODERATE Abnormal NEGATIVE [facility] Nitrite Ql (U) Negative NEGATIVE [facility] pH (U) 6.5 [pH] 5.0 - 8.0 [facility] Protein (U) [Mass/Vol] 2+ Abnormal NEGATIVE mg/dL [facility] Specific gravity (U) [Rel density] 1.016 1.005 - 1.030 [facility] Urobilinogen Qn (U) Normal 0.0 - 1. 0 EU/dL [facility] Urinalysis,Microon 5 Bacteria None Normal NONE [facility] Comment on above: Performed By: #### U AX, UMICAO #### [facility] [employer] [address] [place] [phone] Insurance Agent: Alejandro Salazar MD Casts 2 TO 5 HYALINE Normal 0-8 [facility] Comment on above: Result Comment: Refe rence range defined for non-centrifuged specimen. Performed By: #### U AX, UMICAO #### [employer] [address] [place] [address] Insurance Agent: Alejandro Salazar MD Epithelial cells LM Ql (Urine sed) 2 TO 5 Normal 0-5 [facility] Comment on above: Performed By: #### U AX, UMICAO #### [employer] [address] [place] [address] [phone] Insurance Agent: Alejandro Salazar MD Urine RBC's TOO NUMEROUS TO COUNT Normal 0-4 [facility] Comment on above: Result Comment: Refe rence range defined for non-centrifuged specimen. Performed By: #### U AX, UMICAO #### [employer] [address] [place] [address] Insurance Agent: Alejandro Salazar MD Urine WBC's 20 TO 50 Normal 0-5 [facility] Comment on above: Performed By: #### U AX, UMFERCHOO #### [address] [address] Insurance Agent: Alejandro Salazar MD Cult,Urineon 01-23-2025 Cult,Urine Specimen Description .BLADDER URINE FROM CYSTOSCOPY Special Requests Site: Urine Culture NO GROWTH Report Status FINAL 01/23/2025 Normal [facility] Comment on above: Performed By: #### U RC #### [address] [address] Insurance Agent: Alejandro Salazar MD Basic Metabolic Profon 01-22 Anion gap [Moles/Vol] 12 mmol/L Normal 9-16 [facility] Comment on above: Performed By: #### B MP #### [address] [address] Insurance Agent: Alejandro Salazar MD Calcium [Mass/Vol] 8.4 mg/dL Low 8.6-10.4 [facility] Comment on above: Performed By: #### B MP #### [address] [address] Insurance Agent: Alejandro Salazar MD Chloride [Moles/Vol] 107 mmol/L Normal 98-107 [facility] Comment on above: Performed By: #### B MP #### [address] [address] Insurance Agent: Alejandro Salazar MD CO2 [Moles/Vol] 21 mmol/L Normal 20-31 [facility] Comment on above: Performed By: #### B MP #### [address] [address] Insurance Agent: Alejandro Salazar MD Creatinine [Mass/Vol] 0.7 mg/dL Normal 0.6-0.9 [facility] Comment on above: Performed By: #### B MP #### [employer] [address] [place] [address] [phone] Insurance Agent: Alejandro Salazar MD GFR/1.73 sq M.predicted among non-blacks MDRD (S/P/Bld) [Vol rate/Area] mL/min/{1.73_m2} Normal >60 [facility] Comment on above: Result Comment: These [...] secretion. Performed By: #### B MP #### [employer] [address] [place] [phone] Insurance Agent: Alejandro Salazar MD Glucose [Mass/Vol] 94 mg/dL Normal 74-99 [facility] Comment on above: Performed By: #### B MP #### [facility] [address] [place] [phone] Insurance Agent: Alejandro Salazar MD Potassium [Moles/Vol] 4.2 mmol/L Normal 3.7-5.3 [facility] Comment on above: Result Comment: Spec imen hemolysis has exceeded the interference as defined by Denise. Value may be falsely increased. Suggest recollection if clinically indicated. Performed By: #### B MP #### [employer] [address] [place] [phone] Insurance Agent: Alejandro Salazar MD Sodium [Moles/Vol] 140 mmol/L Normal 136-145 [facility] Comment on above: Performed By: #### B MP #### [employer] [address] [place] [address] [phone] Insurance Agent: Alejandro Salazar MD Urea nitrogen [Mass/Vol] 6 mg/dL Normal 6-20 [facility] Comment on above: Performed By: #### B #### [facility] [employer] [address] [place] [address] Insurance Agent: Alejandro Salazar MD Basic metabolic panelon Anion gap [Moles/Vol] 12 mmol/L 9 - 16 mmol/L [facility] Calcium [Mass/Vol] 8.4 mg/dL Low 8.6 - 10. 4 mg/dL [facility] Chloride [Moles/Vol] 107 mmol/L 98 - 10 7 mmol/L [facility] CO2 [Moles/Vol] 21 mmol/L 20 - 31 mmol/L [facility] Creatinine [Mass/Vol] 0.7 mg/dL 0.6 - 0.9 mg/dL [facility] Est, Glohayley Lundt Rate - PINF [facility] Comment on above: These results are not [...] [Mass/Vol] 94 mg/dL 74 - 99 mg/dL [facility] Interpretation and review of laboratory results Abnormal [facility] Potassium [Moles/Vol] 4.2 mmol/L 3.7 - 5.3 mmol/L [facility] Comment on above: Specimen hemolysis h as exceeded the interference as defined by Denise. Value may be falsely increased. Suggest recollection if clinically indicated. Sodium [Moles/Vol] 140 mmol/L 136 - 145 mmol/L [facility] Urea nitrogen [Mass/Vol] 6 mg/dL 6 - 20 mg/dL [facility] CBC with Auto Differentialon 01-22-2025 Basophils (Bld) [#/Vol] 0.03 10*3/uL [facility] Basophils/100 WBC (Bld) 1 % 0 - 2 % [facility] Eosinophils (Bld) [#/Vol] [facility] Eosinophils/100 WBC (Bld) 1 % 1 - 4 % [facility] Erythrocyte distribution width (RBC) [Ratio] 12.5 % 11.8 - 14.4 % [facility] Hematocrit (Bld) [Volume fraction] 36.7 % 36.3 - 47.1 % [facility] Hemoglobin (Bld) [Mass/Vol] 11.8 g/dL Low 11.9 - 15.1 g/dL [facility] Immature granulocytes (Bld) [#/Vol] [facility] Immature granulocytes/100 WBC (Bld) 0 % 0 [facility] Interpretation and review of laboratory results Abnormal [facility] Lymphocytes/100 WBC (Bld) 34 % 24 - 43 % [facility] Lymphocytes/100 WBC (Bld) 1.19 % [facility] MCH (RBC) [Entitic mass] 27.6 pg 25.2 - 33.5 pg [facility] MCHC (RBC) [Mass/Vol] 32.2 g/dL 28.4 - 34.8 g/dL [facility] MCV (RBC) [Entitic vol] 85.7 fL 82.6 - 102.9 fL [facility] Monocytes/100 WBC (Bld) 9 % 3 - 12 % [facility] Monocytes/100 WBC (Bld) 0.3 % [facility] Neutrophils/100 WBC (Bld) 55 % 36 - 65 % [facility] Nucleated RBC/100 WBC (Bld) [Ratio] 0 % 0.0 per 100 WBC [facility] Platelet mean volume (Bld) [Entitic vol] 9.1 fL 8.1 - 13.5 fL [facility] Platelets (Bld) [#/Vol] 217 10*3/uL [facility] RBC (Bld) [#/Vol] 4.28 10*6/uL 3.95 - 5.1 1 m/uL [facility] Segmented neutrophils/100 WBC (Bld) 1.96 % [facility] WBC other (Bld) [#/Vol] 3.5 Bon [facility] Bon [facility] CBC with Diffon 01-22-2025 Abs. Basophil 0.03 k/uL Normal 0.00-0.20 [facility] Comment on above: Performed By: #### C DP #### [address] [address] Insurance Agent: Alejandro Salazar MD Abs. Eosinophil <0.03 Normal 0.00-0.44 [facility] Comment on above: Performed By: #### C DP #### [address] [address] Insurance Agent: Alejandro Salazar MD Abs.Imm.Granulocyte <0.03 Normal 0.00-0.30 [facility] Comment on above: Performed By: #### C DP #### [address] [address] Insurance Agent: Alejandro Salazar MD Abs.Neutrophil (Seg) 1.96 k/uL Normal 1.50-8.10 [facility] Comment on above: Performed By: #### C DP #### [address] [phone] Insurance Agent: Alejandro Salazar MD Basophils/100 WBC (Bld) 1 % Normal 0-2 [facility] Comment on above: Performed By: #### C DP #### [address] [phone] Insurance Agent: Alejandro Salazar MD Eosinophils/100 WBC (Bld) 1 % Normal 1-4 [facility] Comment on above: Performed By: #### C DP #### [address] [address] Insurance Agent: Alejandro Salazar MD Erythrocyte distribution width (RBC) [Ratio] 12.5 % Normal 11.8-14.4 [facility] Comment on above: Performed By: #### C DP #### [address] [address] Insurance Agent: Alejandro Salazar MD Hematocrit (Bld) [Volume fraction] 36.7 % Normal 36.3-47.1 [facility] Comment on above: Performed By: #### C DP #### [address] [address] Insurance Agent: Alejandro Salazar MD Hemoglobin (Bld) [Mass/Vol] 11.8 g/dL Low 11.9-15.1 [facility] Comment on above: Performed By: #### C DP #### [address] [address] Insurance Agent: Alejandro Salazar MD Immature granulocytes/100 WBC (Bld) 0 % Normal 0 [facility] Comment on above: Performed By: #### C DP #### [address] [address] Insurance Agent: Alejandro Salazar MD Lymphocytes (Bld) [#/Vol] 1.19 10*3/uL Normal 1.10-3.70 [facility] Comment on above: Performed By: #### C DP #### [address] [address] Insurance Agent: Alejandro Salazar MD Lymphocytes/100 WBC (Bld) 34 % Normal 24-43 [facility] Comment on above: Performed By: #### C DP #### [address] [address] Insurance Agent: Alejandro Salazar MD MCH (RBC) [Entitic mass] 27.6 pg Normal 25.2-33.5 [facility] Comment on above: Performed By: #### C DP #### [address] [address] Insurance Agent: Alejandro Salazar MD MCHC (RBC) [Mass/Vol] 32.2 g/dL Normal 28.4-34.8 [facility] Comment on above: Performed By: #### C DP #### [address] [address] Insurance Agent: Alejandro Salazar MD MCV (RBC) [Entitic vol] 85.7 fL Normal 82.6-102.9 [facility] Comment on above: Performed By: #### C DP #### [place] [address] Insurance Agent: Alejandro Salazar MD Monocytes (Bld) [#/Vol] 0.30 10*3/uL Normal 0.10-1.20 [facility] Comment on above: Performed By: #### C DP #### [place] [address] Insurance Agent: Alejandro Salazar MD Monocytes/100 WBC (Bld) 9 % Normal 3-12 [facility] Comment on above: Performed By: #### C DP #### [address] [address] Insurance Agent: Alejandro Salazar MD Neutrophil (Seg) 55 % Normal 36-65 [facility] Comment on above: Performed By: #### C DP #### [place] [address] Insurance Agent: Alejandro Salazar MD NRBC Automated 0.0 per 100 WBC Normal 0.0 [facility] Comment on above: Performed By: #### C DP #### [place] [address] Insurance Agent: Alejandro Salazar MD Platelet mean volume (Bld) [Entitic vol] 9.1 fL Normal 8.1-13.5 [facility] Comment on above: Performed By: #### C DP #### [facility] [address] [place] [address] Insurance Agent: Alejandro Salazar MD Platelets (Bld) [#/Vol] 217 10*3/uL Normal 138-453 [facility] Comment on above: Performed By: #### C DP #### [facility] [address] [place] [address] Insurance Agent: Alejandro Salazar MD RBC (Bld) [#/Vol] 4.28 10*6/uL Normal 3.95-5.11 [facility] Comment on above: Performed By: #### C DP #### [facility] [employer] [address] [place] [address] Insurance Agent: Alejandro Salazar MD WBC (Bld) [#/Vol] 3.5 10*3/uL Normal 3.5-11.3 [facility] Comment on above: Performed By: #### C DP #### [facility] [address] [place] [address] Insurance Agent: Alejandro Salazar MD FLUORO FOR SURGICAL PROCEDUR ESon 01-22-2025 FLUORO FOR SURGICAL PROCEDURES Radiology exam is complete. No Radiologist dictation. Please follow up with ordering provider. Final result Normal [facility] Guidance-- during surgeryon 01-22-2025 Radiology exam is complete. No Radiologist dictation. Please follow up with ordering provider. PN RIS CONSOLIDATED Lactic Acidon 01-22-2025 Lactic Acid, Whole Blood 1 mmol/L 0.7 - 2.1 mmol/L [facility] Lactic Acid,Whole Bl 1.0 mmol/L Normal 0.7-2.1 [facility] Comment on above: Performed By: #### L ACTIC #### [facility] [address] [place] [address] Insurance Agent: Alejandro Salazar MD PREVIOUS SPECIMENon 01-23-20 25 [facility] Urine Cultureon 01-21-2025 Bacteria identified Cx Nom (U) ORGANISM: Escherichia coli (O:ESCCOL) [place] Count >100,000 Aerobic ANASTASIA Charge ([id number]) ---- [...] RESISTANT TO ALL B-LACTAM DRUGS. PERFORMED BY: [place] [address] PATHOLOGIST CLUTCH SPECIALIST DAVID TIERNEY M.D. Normal [facility] Comment on above: Performed By: #### C UU #### [address] [place] VOIDING URETHROCYSTOGRAM S AND Ion 01-17-2025 [place] VOIDING URETHROCYSTOGRAM S AND I EXAMINATION: VOIDING CYSTO URETHROGRAM 01/17/2025 7:55 am COMPARISON: None. HISTORY: ORDERING SYSTEM PROVIDED HISTORY: VUR (vesicoureteric reflux) TECHNOLOGIST PROVIDED HISTORY: Is the patient ?->No Reason for Exam: frequent UTI, kidney stones FLUOROSCOPY DOSE AND TYPE: Radiation Exposure Index: DAP 184.84aLygl5, FINDINGS: 600 mL of Cystografin was instilled [...] Casey Sharma MD 01/17/25 Final result Normal [facility] [place] VOIDING URETHROCYSTOGRAM S&Ion 01-17-2025 1. No evidence for vesicoureteric reflux. 2. Small postvoid residual. [facility] RIS CONSOLIDATED EXAMINATION: VOIDING CYSTO URETHROGRAM 01/17/2025 7:55 am COMPARISON: None. HISTORY: ORDERING SYSTEM PROVIDED HISTORY: VUR (vesicoureteric reflux) TECHNOLOGIST PROVIDED HISTORY: Is the patient ?->No Reason for Exam: frequent UTI, kidney stones FLUOROSCOPY DOSE AND TYPE: Radiation Exposure Index: DAP 184.27cVksw1, FINDINGS: 600 mL of Cystografin was instilled [...] the urethra. There is small postvoid residual. [facility] RIS CONSOLIDATED Casey Sharma MD - 01/17/2025 EXAMINATION: VOIDING CYSTO URETHROGRAM 01/17/2025 7:55 am COMPARISON: None. HISTORY: ORDERING SYSTEM PROVIDED HISTORY: VUR (vesicoureteric reflux) TECHNOLOGIST PROVIDED HISTORY: Is the patient ?->No Reason for Exam: frequent UTI, kidney stones FLUOROSCOPY DOSE AND TYPE: Radiation Exposure Index: DAP 184.35pUtfo8, FINDINGS: 600 mL of Cystografin was instilled [...] for vesicoureteric reflux. 2. Small postvoid residual. [facility] Radiology Study observation (narrative) [facility] [place] VOIDING URETHROCYSTOGRAM S&IOrdered By: Casey Sharma on 01-17-2025 [facility] Work Phone: NM KIDNEY W FLOW AND [...] Glen Perez MD 01/16/25 Final result Normal [facility] Urine Cultureon 12-02-2024 Bacteria identified Cx Nom (U) 30,000 colonies/ml mixed bacterial skin contaminants 2 Days PERFORMED BY: [place] [address] PATHOLOGIST CLUTCH SPECIALIST DAVID TIERNEY M.D. Normal [facility] Comment on above: Performed By: #### C UU #### [address] Urine cultureOrdered By: Vicente Snyder on 12-02-2024 Bacteria identified Cx Nom (U) Urine culture [facility] Cholesterol [Mass/volume] in Serum or PlasmaOrdered By: Arnulfo Aviles on 04-09-2024 Cholesterol [Mass/Vol] 150 mg/dL 140-200 [facility] Comment on above: Chol less than 200 m g/dl low riskChol 201-239 mg/dl borderline riskChol 240 mg/dl and greater high risk Cholesterol in LDL Calc [Mas s/Vol]Ordered By: Arnulfo Aviles on 04-09-2024 Cholesterol in LDL [Mass/Vol] 90 mg/dL 0-100 [facility] Comment on above: LDL ATP III CLASSIFI CATIONLDL less than 100 mg/dL OptimalLDL 100-129 mg/dL Near or above optimalLDL 130-159 mg/dL Borderline highLDL 160-189 mg/dL HighLDL greater than 189 mg/dL Very high Cholesterol in VLDL Calc [Ma ss/Vol]Ordered By: Arnulfo Aviles on 04-09-2024 Cholesterol in VLDL [Mass/Vol] 16 mg/dL [facility] Serum or plasma high density lipoprotein (HDL) cholesterol measurementOrdered By: Arnulfo Aviles on 04-09-2024 Cholesterol in HDL [Mass/Vol] 44 mg/dL 23-92 [facility] Comment on above: HDL CHOL ATP-III CLA SSIFICATION Cardiovascular RiskHDL > or equal to 60 mg/dL LOWHDL < 40 mg/dL HIGH Serum or plasma total choles terol/high density lipoprotein (HDL) cholesterol mass ratOrdered By: Arnulfo Aviles on 04-09-2024 Cholesterol.total/Cho lesterol in HDL [Mass ratio] 3.4 {ratio} <5.0 [facility] Thyrotropin [Units/volume] i n Serum or PlasmaOrdered By: Arnulfo Aviles on 04-09-2024 TSH Qn 2.01 m[IU]/L 0.45-5.33 [facility] Triglyceride [Mass/volume] i n Serum or PlasmaOrdered By: Arnulfo Aviles on 04-09-2024 Triglyceride [Mass/Vol] 82 mg/dL 0-149 [facility] Comment on above: TRIG ATP III CLASSIF ICATIONTRIG less than 150 mg/dL NormalTRIG 150-199 mg/dL Borderline highTRIG 200-500 mg/dL High TRIG greater than 500 mg/dL Very highStandard traceable to the Center for Disease Conrtrol and Prevention (CDC) test method. Vitamin D+Metabolites [Mass/ volume] in Serum or PlasmaOrdered By: Arnulfo Aviles on 04-09-2024 Vitamin D+Metabolites [Mass/Vol] 26.2 ng/mL 30-100 [facility] Comment on above: VITAMIN D STATUS 25( [place])VITAMIN D RANGE (ng/mL) Deficient <20 Insufficient 20 to <30Sufficient 30 to 100Reference: José Miguel MF,Jennifer NC, Mady MARTI, et al. Evaluation,treatment, and prevention of vitamin D deficiency; an Endocrine Society clinical practice guideline. JCEM. 2010; 96(7):1911-30. Patient Letter FTon 2023 Patient Letter [facility] December 04, 2023 DIANA BARRIGA [address] [place] [id number] : 1990 Dear Diana, You missed your [...] [facility] [address], [place] [address] [facility] Lab Reportson 06-05-2023 Lab Reports [id number]#1 .00CD:127 [facility] Reminderson 04-24-2023 Reminders - From: Whitney [...] the pt with the results. duplicate message [facility] Operative Reporton Operative Report [id number]#1. 00CD:127 [facility] RAD - MISCon 04-10-2023 RAD - MISC [id number] .00CD:127 [facility] Lab Reportson 04-06-2023 Lab Reports [id number]#1 .00CD:127 [facility] Lab Reports [id number]#1 .00CD:127 [facility] Lab Reportson 03-23-2023 Lab Reports [id number]#1 .00CD:127 [facility] Lab Reports [id number] .00CD:127 Normal [facility] Lab Reports [id number] .00CD:127 Normal [facility] RAD - CT Reporton 03-23-2023 RAD - CT Report [id number] .00CD:127 Normal [facility] RAD - CT Report [id number] .00CD:127 Normal [facility] Ambulatory Visit Summaryon 0 03-20-2023 Ambulatory Visit Summary DIANA BARRIGA :1990 Visit Date:03/20/2023 Ambulatory Visit Instructions Your Diagnosis Kidney stone Hypercalciuria History of kidney stones Hyperoxaluria Your Care Team Attending Physician - IDALMIS BORDEN, Nona Turner Primary Care Physician - Domingo Snyder MD [...] When: Where: [facility] [address] [place] [address]- Medications What When Instructions Unchanged olanzapine-samidorpha n [...] handful of b (more content not included)... [facility] Consent for Procedure/Surger yon 03-20-2023 Consent for Procedure/Surgery [id number] .00CD:127 [facility] Patient Educationon 03-20-20 23 Patient Education [...] Spinach (cooked), rhubarb, beets, sweet potatoes, and [place]uran chard. ? Peanuts. ? Potato chips, british virgin islander fries, and baked potatoes with skin on. ? Nuts and nut products. ? Chocolate. ? If you regularly take a diuretic medicine, make sure to eat at least 1 or 2 servings of fruits or vegetables that are high in potassium each day. These include: ? Avocado. ? Banana. ? [place], prune, carrot, or tomato juice. ? Baked [...] fish oil, or vitamin B6. ? Take qbyt-nko-ollhger and prescription medicines only as told by your health care provider. These include supplements. What foods should I limit? Limit your in (more content not included)... Normal [facility] Urology Office/Clinic Noteon 03-20-2023 Urology Office/Clinic [...] Lt kidney pain. Did got to the [place] ER. DX'd & treated for UTI. (NEG [...] L. Ox slightly elevated. Pt presented to [facility] ER on 03/06/23 due to L [...] mg qd. SEs discussed. Rx sent to [facility]. -Electrolyte panel 4 weeks to the day [...] With When Contact Information Nona RAYGOZA MD, URL [facility] [address] [place] [address]- Additional Instructions: schedule R ESWL Patient Education [...] kidney s (more content not included)... Normal [facility] Comment on above: Result Comment: Elec tronically Signed By: Nona RAYGOZA MD\.br\Date and Time Signed: 03/20/23 11:30 EDT\.br\Electronically Co-Signed By: Whitney Collier\.br\Date and Time Co-Signed: 03/20/23 11:28 EDT CBC AUTO DIFFon 02-16-2023 BASO # 0.1 103/ul Normal 0.0-0.1 [facility] Comment on above: Performed By: #### U KJ 24 #### [facility] [address] [address] [address] Ramses Dumas Basophils/100 WBC (Bld) 0.5 % Normal 0.2-2.0 [facility] Comment on above: Performed By: #### U KJ 24 #### [facility] [address] [address] [address] Ramses Dumas EO # 0.0 103/ul Normal 0.0-0.7 [facility] Comment on above: Performed By: #### U KJ 24 #### [facility] [address] [place] [address] Dr. Ramses Dumas Eosinophils/100 WBC (Bld) 0.4 % Critically low 0.9-7.0 [facility] Comment on above: Performed By: #### U KJ 24 #### [facility] [address] [place] [address] Dr. Ramses Dumas Erythrocyte distribution width (RBC) [Ratio] 13.7 % Normal 11.0-15.0 [facility] Comment on above: Performed By: #### U KJ 24 #### [facility] [address] [place] [address] Dr. Ramses uDmas Hematocrit (Bld) [Volume fraction] 45.1 % Normal 36.0-48.0 [facility] Comment on above: Performed By: #### U KJ 24 #### [facility] [address] [place] [address] Dr. Ramses Dumas Hemoglobin (Bld) [Mass/Vol] 14.3 g/dL Normal 12.0-16.0 [facility] Comment on above: Performed By: #### U KJ 24 #### [facility] [address] [place] [address] Dr. Ramses Dumas IG # 0.02 10e3/ul Normal 0.00-0.03 [facility] Comment on above: Performed By: #### U KJ 24 #### [facility] [address] [place] [address] Dr. Ramses Dumas IG % 0.2 % Normal 0.0-0.5 [facility] Comment on above: Performed By: #### U KJ 24 #### [facility] [address] [place] [address] Dr. Ramses Dumas LYMPH # 2.5 103/ul Normal 1.2-3.8 [facility] Comment on above: Performed By: #### U KJ 24 #### [facility] [address] [place] [address] Dr. Ramses Dumas Lymphocytes/100 WBC (Bld) 26.4 % Normal 20.5-60.0 [facility] Comment on above: Performed By: #### U KJ 24 #### [facility] [address] [address] [address] Ramses Dumas MANUAL DIFF REQ NO Normal [facility] Comment on above: Performed By: #### U KJ 24 #### [facility] [address] [place] [address] Dr. Ramses Dumas MCH (RBC) [Entitic mass] 25.6 pg Critically low 26.7-34.0 [facility] Comment on above: Performed By: #### U KJ 24 #### [facility] [address] [place] [address] Dr. Ramses Dumas MCHC (RBC) [Mass/Vol] 31.7 g/dL Normal 29.9-35.2 [facility] Comment on above: Performed By: #### U KJ 24 #### [facility] [address] [place] [address] Dr. Ramses Dumas MCV (RBC) [Entitic vol] 80.7 fL Critically low 81.0-99.0 [facility] Comment on above: Performed By: #### U KJ 24 #### [facility] [address] [place] [address] Dr. Ramses Dumas MONO # 0.7 103/ul Normal 0.3-0.8 [facility] Comment on above: Performed By: #### U KJ 24 #### [facility] [address] [place] [address] Dr. Ramses Dumas Monocytes/100 WBC (Bld) 7.6 % Normal 1.7-12.0 [facility] Comment on above: Performed By: #### U KJ 24 #### [facility] [address] [place] [address] Dr. Ramses Dumas NEUT # 6.1 103/ul Normal 1.4-6.5 [facility] Comment on above: Performed By: #### U KJ 24 #### [facility] [address] [place] [address] Dr. Ramses Dumas Neutrophils/100 WBC (Bld) 64.9 % Normal 43.0-75.0 [facility] Comment on above: Performed By: #### U KJ 24 #### [facility] [address] [address] [address] Ramses Dumas Platelet mean volume (Bld) [Entitic vol] 11.0 fL Normal 9.5-13.5 [facility] Comment on above: Performed By: #### U KJ 24 #### [facility] [address] [address] [address] Ramses Dumas PLT 270 103/ul Normal 150-450 [facility] Comment on above: Performed By: #### U KJ 24 #### [facility] [address] [address] [address] Ramses Dumas RBC 5.59 106/ul Critically high 4.20-5.40 [facility] Comment on above: Performed By: #### U KJ 24 #### [facility] [address] [place] [address] Dr. Ramses Dumas WBC 9.4 103/ul Normal 4.0-11.0 [facility] Comment on above: Performed By: #### U KJ 24 #### [facility] [address] [place] [address] ABD/PELV W CONon [...] FARTUN NOVOA Date: 2023-02-16 18:21 Normal [facility] ER URINE PROFILEon 3 Bilirubin Ql (U) SMALL Abnormal NEGATIVE [facility] Comment on above: Performed By: #### C MP #### [facility] [address] [place] [address] Dr. Ramses Dumas Clarity (U) CLEAR Normal CLEAR [facility] Comment on above: Performed By: #### C MP #### [facility] [address] [place] [address] Dr. Ramses Dumas Color (U) YELLOW Normal YELLOW [facility] Comment on above: Performed By: #### C MP #### [facility] [address] [place] [address] Dr. Ramses Dumas ERUCARLOS ENRIQUE A micrscopic examination will be performed if indicated. Normal [facility] Comment on above: Performed By: #### C MP #### [facility] [address] [place] [address] Dr. Ramses Dumas Glucose Ql (U) Negative Normal NEGATIVE [facility] Comment on above: Performed By: #### C MP #### [facility] [address] [place] [address] Dr. Ramses Dumas Hemoglobin Ql (U) Negative Normal NEGATIVE [facility] Comment on above: Performed By: #### C MP #### [facility] [address] [place] [address] Dr. Ramses Dumas Ketones Ql (U) 40 mg/dl Abnormal NEGATIVE [facility] Comment on above: Performed By: #### C MP #### [facility] [address] [place] [address] Dr. Ramses Dumas LEUKOCYTES SMALL Abnormal NEGATIVE [facility] Comment on above: Performed By: #### C MP #### [facility] [address] [place] [address] Dr. Ramses Dumas Nitrite Ql (U) Negative Normal NEGATIVE [facility] Comment on above: Performed By: #### C MP #### [facility] [address] [place] [address] Dr. Ramses Dumas pH (U) 7.0 [pH] Normal 5-9 [facility] Comment on above: Performed By: #### C MP #### [facility] [address] [place] [address] Dr. Ramses Dumas Protein (U) [Mass/Vol] 30 mg/dL Abnormal NEGATIVE/ TRACE [facility] Comment on above: Performed By: #### C MP #### [facility] [address] [place] [address] Dr. Ramses Dumas SPEC GRAVITY 1.020 Normal 1.005-<=1.02 5 [facility] Comment on above: Performed By: #### C MP #### [facility] [address] [place] [address] Dr. Ramses Dumas UR MICRO IND INDICATED Normal [facility] Comment on above: Performed By: #### C MP #### [facility] [address] [place] [address] Dr. Ramses Dumas Urobilinogen Qn (U) 4 {Lucero'U}/dL Abnormal 0.2 - 1.0 [facility] Comment on above: Performed By: #### C MP #### [facility] [address] [place] [address] Dr. Ramses Dumas LIPASEon 02-16-2023 Lipase [Catalytic activity/Vol] 67.0 U/L Critically low 73.0-393.0 [facility] Comment on above: Performed By: #### U RCX #### [facility] [address] [address] [address] Ramses Dumas LIVER PROFILEon 02-16-2023 Albumin [Mass/Vol] 4.1 g/dL Normal 3.4-5.0 [facility] Comment on above: Performed By: #### U RCX #### [facility] [address] [place] [address] Dr. Ramses Dumas Albumin/Globulin [Mass ratio] 1.0 {ratio} Normal [facility] Comment on above: Performed By: #### U RCX #### [facility] [address] [address] [address] Ramses Dumas ALP [Catalytic activity/Vol] 85 U/L Normal 46-116 [facility] Comment on above: Performed By: #### U RCX #### [facility] [address] [place] [address] Dr. Ramses Dumas ALT [Catalytic activity/Vol] 61 U/L Critically high 14-59 [facility] Comment on above: Performed By: #### U RCX #### [facility] [address] [place] [address] Dr. Ramses Dumas AST [Catalytic activity/Vol] 43 U/L Critically high 15-37 [facility] Comment on above: Performed By: #### U RCX #### [facility] [address] [place] [address] Dr. Ramses Dumas BILI, CONJUGATED 0.1 mg/dL Normal 0.0-0.2 [facility] Comment on above: Performed By: #### U RCX #### [facility] [address] [place] [address] Dr. Ramses Dumas Bilirubin [Mass/Vol] 0.7 mg/dL Normal 0.2-1.0 [facility] Comment on above: Performed By: #### U RCX #### [facility] [address] [place] [address] Dr. Ramses Dumas Globulin (S) [Mass/Vol] 4.2 g/dL Normal [facility] Comment on above: Performed By: #### U RCX #### [facility] [address] [address] [address] Ramses Dumas Protein [Mass/Vol] 8.3 g/dL Critically high 6.4-8.2 [facility] Comment on above: Performed By: #### U RCX #### [facility] [address] [address] [address] Ramses Dumas URon 02-16-2023 , QUAL Negative Normal NEGATIVE [facility] Comment on above: Performed By: #### C MP #### [facility] [address] [place] [address] Dr. Ramses Dumas PROF CHEM 8 (BAS METB)on Anion gap [Moles/Vol] 14.2 mmol/L Normal [facility] Comment on above: Performed By: #### U RCX #### [facility] [address] [place] [address] Dr. Ramses Dumas Calcium [Mass/Vol] 9.5 mg/dL Normal 8.5-10.1 [facility] Comment on above: Performed By: #### U RCX #### [facility] [address] [address] [address] Ramses Dumas Chloride [Moles/Vol] 102 mmol/L Normal 98-107 [facility] Comment on above: Performed By: #### U RCX #### [facility] [address] [place] [address] Dr. Ramses Dumas CO2 [Moles/Vol] 27.5 mmol/L Normal 21.0-32.0 [facility] Comment on above: Performed By: #### U RCX #### [facility] [address] [place] [address] Dr. Ramses Dumas Creatinine [Mass/Vol] 0.71 mg/dL Normal 0.55-1.02 [facility] Comment on above: Performed By: #### U RCX #### [facility] [address] [place] [address] Dr. Ramses Dumas EGFR-AF CANADIAN >60 Normal >=60 [facility] Comment on above: Performed By: #### U RCX #### [facility] [address] [address] [address] Ramses Dumas EGFR-NON AF CANADIAN >60 Normal >=60 [facility] Comment on above: Performed By: #### U RCX #### [facility] [address] [address] [address] Ramses Dumas Glucose [Mass/Vol] 90 mg/dL Normal 74-106 [facility] Comment on above: Performed By: #### U RCX #### [facility] [address] [address] [address] Ramses Dumas Potassium [Moles/Vol] 3.7 mmol/L Normal 3.5-5.1 [facility] Comment on above: Performed By: #### U RCX #### [facility] [address] [place] [address] Dr. Ramses Dumas Sodium [Moles/Vol] 140 mmol/L Normal 136-145 [facility] Comment on above: Performed By: #### U RCX #### [facility] [address] [place] [address] Dr. Ramses Dumas Urea nitrogen [Mass/Vol] 6.0 mg/dL Critically low 7.0-18.0 [facility] Comment on above: Performed By: #### U RCX #### [facility] [address] [place] [address] Dr. Ramses Dumas Urea nitrogen/Creatinine [Mass ratio] 8.5 mg/mg Normal [facility] Comment on above: Performed By: #### U RCX #### [facility] [address] [place] [address] Dr. Ramses Dumas URINE MICROSCOPIC ONLYon BACTERIA NONE SEEN Normal NONE SEEN [facility] Comment on above: Performed By: #### U KJ 24 #### [facility] [address] [place] [address] Dr. Ramses Dumas Bacteria identified Cx Nom (U) NOT INDICATED Normal [facility] Comment on above: Performed By: #### U KJ 24 #### [facility] [address] [place] [address] Dr. Ramses Dumas CAST NONE SEEN Normal NONE SEEN [facility] Comment on above: Performed By: #### U KJ 24 #### [facility] [address] [place] [address] Dr. Ramses Dumas Crystals LM Nom (Urine sed) NONE SEEN Normal NONE SEEN [facility] Comment on above: Performed By: #### U KJ 24 #### [facility] [address] [place] [address] Dr. Ramses Dumas Epithelial cells LM Ql (Urine sed) FEW Abnormal NONE SEEN /RARE [facility] Comment on above: Performed By: #### U KJ 24 #### [facility] [address] [place] [address] Dr. Ramses Dumas MUCOUS SMALL Abnormal NONE SEEN [facility] Comment on above: Performed By: #### U KJ 24 #### [facility] [address] [place] [address] Dr. Ramses Dumas RBC NONE SEEN Abnormal 0-2 [facility] Comment on above: Performed By: #### U KJ 24 #### [facility] [address] [place] [address] Dr. Ramses Dumas WBC 0-2 Abnormal NONE SEEN [facility] Comment on above: Performed By: #### U KJ 24 #### [facility] [address] [place] [address] Dr. Ramses Dumas PAP ACOG PANEL 2: 30 to 65on 02-10-2023 . . Normal [facility] Comment on above: Result Comment: Perf ormed at: WB Performed By: #### U RCX #### [facility] [address] [place] [address] Dr. Ramses Dumas Age Gdln ACOG Testing 30-65 Normal [facility] Comment on above: Performed By: #### U RCX #### [facility] [address] [place] [address] Dr. Ramses Dumas DIAGNOSIS: Comment Normal [facility] Comment on above: Result Comment: NEGA TIVE FOR INTRAEPITHELIAL LESION OR MALIGNANCY. REACTIVE CELLULAR CHANGES AND/OR REPAIR ARE PRESENT. Performed at: WB Performed By: #### U RCX #### [facility] [address] [address] [address] Ramses Dumas Electronically signed by: Comment Normal [facility] Comment on above: Result Comment: Chelsey Boston MD, Pathologist Performed at: WB Performed By: #### U RCX #### [facility] [address] [address] [address] Ramses Dumas HPV Aptima Negative Normal Negative [facility] Comment on above: Result Comment: This nucleic acid amplification test detects fourteen high-risk HPV types (16,18,31,33,35,39,45,51,52,56,58,59,66,68) without differentiation. Performed at: =G Performed By: #### U RCX #### [facility] [address] [place] [address] Dr. Ramses Dumas HPV Genotype Reflex Comment Normal [facility] Comment on above: Result Comment: Crit eria not met, HPV Genotype not performed. Performed at: WB Performed By: #### U RCX #### [facility] [address] [place] [address] Dr. Ramses Dumas Methodology: Comment Normal [facility] Comment on above: Result Comment: This liquid based ThinPrep(R) pap test was screened with the use of an image guided system. Performed at: WB Performed By: #### U RCX #### [facility] [address] [place] [address] Dr. Ramses Dumas Note: Comment Normal [facility] [...] WB Performed By: #### U RCX #### [facility] [address] [place] [address] Dr. Ramses Dumas Performed by: Comment Normal [facility] Comment on above: Result Comment: Cuca Briceno, Core Drier (ASCP) Performed at: WB Performed By: #### U RCX #### [facility] [address] [address] [address] Ramses Dumas Specimen adequacy: Comment Normal [facility] Comment on above: Result Comment: Sati sfactory for evaluation. Endocervical and/or squamous metaplastic cells (endocervical component) are present. Performed at: WB Performed By: #### U RCX #### [facility] [address] [address] [address] Ramses Dumas Lab Reportson 12-29-2022 Lab Reports [id number]:127 Normal [facility] RAD - MISCon 12-21-2022 RAD - MISC [id number] .[id number]:127 Normal [facility] OXALATE 24HR URINEon 023 Oxalates, Urine 44 mg/L Normal Undefined [facility] Comment on above: Performed By: #### U KJ 24 #### [facility] [address] [place] [address] Dr. Ramses Dumas Oxalates, Urine 24hr 44 mg/24 hr Critically high 4-31 [facility] Comment on above: Performed By: #### U KJ 24 #### [facility] [address] [place] [address] Dr. Ramses Dumas CITRATE URINE 24HRon 023 Citric Acid, U, 24hr 658 mg/24 hr Normal 320-1240 [facility] Comment on above: Result Comment: This test was developed and its performance characteristics determined by [facility]. It has not been cleared or approved by the Food and Drug Administration. Performed By: #### C ITRATU #### [facility] [address] [place] [address] Dr. Ramses Dumas Citric Acid, Urine 658 mg/L Normal Undefined [facility] Comment on above: Performed By: #### C ITRATU #### [facility] [address] [place] [address] Dr. Ramses Dumas MAGNESIUM 24HR URINEon 12-17 Magnesium 24hr Urine 119.0 mg/24 hr Normal 12.0-293.0 [facility] Comment on above: Performed By: #### U RCX #### [facility] [address] [place] [address] Dr. Ramses Dumas Magnesium UR 11.9 mg/dL Normal Not Estab. [facility] Comment on above: Performed By: #### U RCX #### [facility] [address] [place] [address] Dr. Ramses Dumas PHOSPHORUS 24HR URINEon Phosphorus, Urine 81.4 mg/dL Normal Not Estab. [facility] Comment on above: Performed By: #### B LDCX2 #### [facility] [address] [place] [address] Dr. Ramses Dumas Phosphorus, Urine 24hr 814 mg/24 hr Normal 261-1078 [facility] Comment on above: Performed By: #### B LDCX2 #### [facility] [address] [place] [address] Dr. Ramses Dumas PTH INTACTon 12-17-2022 PTH, Intact 46 pg/mL Normal 15-65 [facility] Comment on above: Performed By: #### U RCX #### [facility] [address] [place] [address] Dr. Ramses Dumas URIC ACID 24 HR URINEon Uric Acid, Urine 69.9 mg/dL Normal Not Estab. The [facility] Comment on above: Performed By: #### U KJ 24 #### [facility] [address] [place] [address] Dr. Ramses Dumas Uric Acid, Urine 24hr 699.0 mg/24 hr Normal 173.7-902. 1 [facility] Comment on above: Performed By: #### U KJ 24 #### [facility] [address] [place] [address] Dr. Ramses Dumas BUNon 12-16-2022 Urea nitrogen [Mass/Vol] 7.0 mg/dL Normal 7.0-18.0 [facility] Comment on above: Performed By: #### C BC #### [facility] [address] [place] [address] Dr. Ramses Dumas CALCIUMon 12-16-2022 Calcium [Mass/Vol] 8.8 mg/dL Normal 8.5-10.1 [facility] Comment on above: Performed By: #### C BC #### [facility] [address] [place] [address] Dr. Ramses Dumas CALCIUM 24 HR URINEon 2022 CALC, 24 HR UR 295.0 mg/24 hr Normal 100.0-300.0 [facility] Comment on above: Performed By: #### B LDCX2 #### [facility] [address] [place] [address] Dr. Ramses Dumas UR CALCIUM 29.5 mg/dL Critically high 5.1-21.0 [facility] Comment on above: Performed By: #### B LDCX2 #### [facility] [address] [place] [address] Dr. Ramses Dumas CHLORIDEon 12-16-2022 Chloride [Moles/Vol] 105 mmol/L Normal 98-107 [facility] Comment on above: Performed By: #### C BC #### [facility] [address] [place] [address] Dr. Ramses Dumas CO2on 12-16-2022 CO2 [Moles/Vol] 26.4 mmol/L Normal 21.0-32.0 [facility] Comment on above: Performed By: #### C MP #### [facility] [address] [place] [address] Dr. Ramses Dumas CREA 24 HR URINEon 3 CREA, 24 HR UR 2337.30 mg/24 hr Critically high 800.00 -1,800 .00 [facility] Comment on above: Performed By: #### C VDTBH #### [facility] [address] [place] [address] Dr. Ramses Dumas URINE CREAT 233.73 mg/dL Normal 20.00-300.00 [facility] Comment on above: Performed By: #### C VDTBH #### [facility] [address] [address] [address] Ramses Dumas CREATININEon 12-16-2022 Creatinine [Mass/Vol] 0.70 mg/dL Normal 0.55-1.02 [facility] Comment on above: Performed By: #### C MP #### [facility] [address] [place] [address] Dr. Ramses Dumas EGFR-AF CANADIAN >60 Normal >=60 [facility] Comment on above: Performed By: #### C MP #### [facility] [address] [place] [address] Dr. Ramses Dumas EGFR-NON AF CANADIAN >60 Normal >=60 [facility] Comment on above: Performed By: #### C MP #### [facility] [address] [address] [address] Ramses Dumas NAon 12-16-2022 Sodium [Moles/Vol] 139 mmol/L Normal 136-145 [facility] Comment on above: Performed By: #### C MP #### [facility] [address] [place] [address] Dr. Ramses Dumas POTASSIUMon 12-16-2022 Potassium [Moles/Vol] 4.0 mmol/L Normal 3.5-5.1 [facility] Comment on above: Performed By: #### C MP #### [facility] [address] [place] [address] Dr. Ramses Dumas SODIUM 24 HR URINEon 023 NA, 24 HR UR 193 mmol/24 hr Normal 40-220 [facility] Comment on above: Performed By: #### C VDTBH #### [facility] [address] [place] [address] Dr. Ramses Dumas Sodium (U) [Moles/Vol] 193 mmol/L Critically high 30-90 [facility] Comment on above: Performed By: #### C VDTBH #### [facility] [address] [place] [address] Dr. Ramses Dumas UR TOT VOL 1000 ml/24 HR Normal [facility] Comment on above: Performed By: #### C VDTBH #### [facility] [address] [place] [address] Dr. Ramses Dumas Performed By: #### B LDCX2 #### [facility] [address] [place] [address] Dr. Ramses Dumas URIC ACID SERUMon 12-16-2022 Urate [Mass/Vol] 5.6 mg/dL Normal 2.6-6.0 [facility] Comment on above: Performed By: #### C MP #### [facility] [address] [place] [address] Dr. Ramses Dumas XR KUB 1 VIEWon [...] JENNIFER GATES Date: 2022-12-15 08:26 Normal [facility] CBC AUTO DIFFon 11-07-2022 BASO # 0.0 103/ul Normal 0.0-0.1 [facility] Comment on above: Performed By: #### U RCX #### [facility] [address] [place] [address] Dr. Ramses Dumas Basophils/100 WBC (Bld) 0.7 % Normal 0.2-2.0 [facility] Comment on above: Performed By: #### U RCX #### [facility] [address] [place] [address] Dr. Ramses Dumas EO # 0.1 103/ul Normal 0.0-0.7 [facility] Comment on above: Performed By: #### U RCX #### [facility] [address] [place] [address] Dr. Ramses Dumas Eosinophils/100 WBC (Bld) 1.9 % Normal 0.9-7.0 [facility] Comment on above: Performed By: #### U RCX #### [facility] [address] [place] [address] Dr. Ramses Dumas Erythrocyte distribution width (RBC) [Ratio] 13.6 % Normal 11.0-15.0 [facility] Comment on above: Performed By: #### U RCX #### [facility] [address] [place] [address] Dr. Ramses Dumas Hematocrit (Bld) [Volume fraction] 37.3 % Normal 36.0-48.0 [facility] Comment on above: Performed By: #### U RCX #### [facility] [address] [place] [address] Dr. Ramses Dumas Hemoglobin (Bld) [Mass/Vol] 12.2 g/dL Normal 12.0-16.0 [facility] Comment on above: Performed By: #### U RCX #### [facility] [address] [place] [address] Dr. Ramses Dumas IG # 0.02 10e3/ul Normal 0.00-0.03 [facility] Comment on above: Performed By: #### U RCX #### [facility] [address] [place] [address] Dr. Ramses Dumas IG % 0.3 % Normal 0.0-0.5 [facility] Comment on above: Performed By: #### U RCX #### [facility] [address] [place] [address] Dr. Ramses Dumas LYMPH # 2.3 103/ul Normal 1.2-3.8 [facility] Comment on above: Performed By: #### U RCX #### [facility] [address] [place] [address] Dr. Ramses Dumas Lymphocytes/100 WBC (Bld) 39.6 % Normal 20.5-60.0 [facility] Comment on above: Performed By: #### U RCX #### [facility] [address] [place] [address] Dr. Ramses Dumas MANUAL DIFF REQ NO Normal [facility] Comment on above: Performed By: #### U RCX #### [facility] [address] [address] [address] Ramses Dumas MCH (RBC) [Entitic mass] 26.4 pg Critically low 26.7-34.0 [facility] Comment on above: Performed By: #### U RCX #### [facility] [address] [place] [address] Dr. Ramses Dumas MCHC (RBC) [Mass/Vol] 32.7 g/dL Normal 29.9-35.2 [facility] Comment on above: Performed By: #### U RCX #### [facility] [address] [place] [address] Dr. Ramses Dumas MCV (RBC) [Entitic vol] 80.7 fL Critically low 81.0-99.0 [facility] Comment on above: Performed By: #### U RCX #### [facility] [address] [place] [address] Dr. Ramses Dumas MONO # 0.5 103/ul Normal 0.3-0.8 [facility] Comment on above: Performed By: #### U RCX #### [facility] [address] [place] [address] Dr. Ramses Dumas Monocytes/100 WBC (Bld) 8.0 % Normal 1.7-12.0 [facility] Comment on above: Performed By: #### U RCX #### [facility] [address] [place] [address] Dr. Ramses Dumas NEUT # 2.9 103/ul Normal 1.4-6.5 [facility] Comment on above: Performed By: #### U RCX #### [facility] [address] [place] [address] Dr. Ramses Dumas Neutrophils/100 WBC (Bld) 49.5 % Normal 43.0-75.0 [facility] Comment on above: Performed By: #### U RCX #### [facility] [address] [place] [address] Dr. Ramses Dumas Platelet mean volume (Bld) [Entitic vol] 9.0 fL Critically low 9.5-13.5 [facility] Comment on above: Performed By: #### U RCX #### [facility] [address] [place] [address] Dr. Ramses Dumas PLT 337 103/ul Normal 150-450 [facility] Comment on above: Performed By: #### U RCX #### [facility] [address] [place] [address] Dr. Ramses Dumas RBC 4.62 106/ul Normal 4.20-5.40 [facility] Comment on above: Performed By: #### U RCX #### [facility] [address] [place] [address] Dr. Ramses Dumas WBC 5.9 103/ul Normal 4.0-11.0 [facility] Comment on above: Performed By: #### U RCX #### [facility] [address] [place] [address] Dr. Ramses Dumas POINT OF CARE GLUCOSEon 10-20 Glucose [Mass/Vol] 115 mg/dL Critically high 74-106 [facility] Comment on above: Performed By: #### C VDTBH #### [facility] [address] [place] [address] Dr. Ramses Dumas PREG QUANT HCGon 11-07-2022 HCG QUANT <1 Normal [facility] Comment on above: Performed By: #### C VDTBH #### [facility] [address] [place] [address] Dr. Ramses Dumas HCG RANGE SEE BELOW Normal [facility] Comment on above: Result Comment: 5-50 0.2-1 WEEK 50-500 1-2 WEEKS 100-5,000 2-3 WEEKS 500-10,000 3-4 WEEKS 1,000-50,000 4-5 WEEKS 10,000-100,000 5-6 WEEKS 15,000-200,000 6-8 WEEKS 10,000-100,000 2-3 MONTHS Performed By: #### C VDTBH #### [facility] [address] [place] [address] Dr. Ramses Dumas US PELVIS AND TRANSVAGon [...] cm right ovarian simple cyst Normal [facility] CBC AUTO DIFFon 11-03-2022 BASO # 0.1 103/ul Normal 0.0-0.1 [facility] Comment on above: Performed By: #### U RCX #### [facility] [address] [address] [address] Ramses Dumas Basophils/100 WBC (Bld) 0.8 % Normal 0.2-2.0 [facility] Comment on above: Performed By: #### U RCX #### [facility] [address] [address] [address] Ramses Dumas EO # 0.1 103/ul Normal 0.0-0.7 [facility] Comment on above: Performed By: #### U RCX #### [facility] [address] [address] [address] Ramses Dumas Eosinophils/100 WBC (Bld) 1.4 % Normal 0.9-7.0 [facility] Comment on above: Performed By: #### U RCX #### [facility] [address] [address] [address] Ramses Dumas Erythrocyte distribution width (RBC) [Ratio] 13.4 % Normal 11.0-15.0 [facility] Comment on above: Performed By: #### U RCX #### [facility] [address] [place] [address] Dr. Ramses Dumas Hematocrit (Bld) [Volume fraction] 38.8 % Normal 36.0-48.0 [facility] Comment on above: Performed By: #### U RCX #### [facility] [address] [place] [address] Dr. Ramses Dumas Hemoglobin (Bld) [Mass/Vol] 12.7 g/dL Normal 12.0-16.0 [facility] Comment on above: Performed By: #### U RCX #### [facility] [address] [place] [address] Dr. Ramses Dumas IG # 0.01 10e3/ul Normal 0.00-0.03 [facility] Comment on above: Performed By: #### U RCX #### [facility] [address] [place] [address] Dr. Ramses Dumas IG % 0.1 % Normal 0.0-0.5 [facility] Comment on above: Performed By: #### U RCX #### [facility] [address] [place] [address] Dr. Ramses Dumas LYMPH # 1.9 103/ul Normal 1.2-3.8 [facility] Comment on above: Performed By: #### U RCX #### [facility] [address] [place] [address] Dr. Ramses Dumas Lymphocytes/100 WBC (Bld) 26.4 % Normal 20.5-60.0 [facility] Comment on above: Performed By: #### U RCX #### [facility] [address] [place] [address] Dr. Ramses Dumas MANUAL DIFF REQ NO Normal [facility] Comment on above: Performed By: #### U RCX #### [facility] [address] [place] [address] Dr. Ramses Dumas MCH (RBC) [Entitic mass] 26.3 pg Critically low 26.7-34.0 [facility] Comment on above: Performed By: #### U RCX #### [facility] [address] [address] [address] Ramses Dumas MCHC (RBC) [Mass/Vol] 32.7 g/dL Normal 29.9-35.2 [facility] Comment on above: Performed By: #### U RCX #### [facility] [address] [address] [address] Ramses Dumas MCV (RBC) [Entitic vol] 80.5 fL Critically low 81.0-99.0 [facility] Comment on above: Performed By: #### U RCX #### [facility] [address] [address] [address] Ramses Dumas MONO # 0.6 103/ul Normal 0.3-0.8 [facility] Comment on above: Performed By: #### U RCX #### [facility] [address] [address] [address] Ramses Dumas Monocytes/100 WBC (Bld) 8.2 % Normal 1.7-12.0 [facility] Comment on above: Performed By: #### U RCX #### [facility] [address] [place] [address] Dr. Ramses Dumas NEUT # 4.5 103/ul Normal 1.4-6.5 [facility] Comment on above: Performed By: #### U RCX #### [facility] [address] [address] [address] Ramses Dumas Neutrophils/100 WBC (Bld) 63.1 % Normal 43.0-75.0 [facility] Comment on above: Performed By: #### U RCX #### [facility] [address] [address] [address] Ramses Dumas Platelet mean volume (Bld) [Entitic vol] 8.9 fL Critically low 9.5-13.5 [facility] Comment on above: Performed By: #### U RCX #### [facility] [address] [place] [address] Dr. Ramses Dumas PLT 340 103/ul Normal 150-450 [facility] Comment on above: Performed By: #### U RCX #### [facility] [address] [address] [address] Ramses Dumas RBC 4.82 106/ul Normal 4.20-5.40 [facility] Comment on above: Performed By: #### U RCX #### [facility] [address] [address] [address] Ramses Dumas WBC 7.1 103/ul Normal 4.0-11.0 [facility] Comment on above: Performed By: #### U RCX #### [facility] [address] [address] [address] aRmses Dumas Covid-19 PCR ([facility])on 10-19 SARS-CoV-2 (COVID-19) RNA FRANCESCA+probe Ql (Unsp spec) Not detected Normal NOT DETECTED [facility] Comment on above: Result Comment: This test is not yet approved or cleared by the [place] FDA. When there are no FDA-approved or cleared tests available, and other criteria are met, FDA can make tests available under an emergency access mechanism called an Emergency Use Authorization (EUA). The EUA for this test is supported by the [place] of Health and Human Service's (HHS's) declaration [...] SARS-CoV-2. Performed By: #### U RCX #### [facility] [address] [place] [address] Dr. Ramses Dumas FREE T4on 11-03-2022 Free T4 [Mass/Vol] 0.99 ng/dL Normal 0.76-1.46 [facility] Comment on above: Performed By: #### B LDCX2 #### [facility] [address] [place] [address] Dr. Ramses Dumas GLYCOHEMOGLOBIN A1Con 2022 ADA RECOMMENDATION SEE BELOW Normal [facility] Comment on above: Result Comment: ADA RECOMMENDED LIMIT 4.0 - 6.0 ADA THERAPEUTIC TARGET < 7.0 ACTION SUGGESTED > 7.0 Performed By: #### C VDTBH #### [facility] [address] [place] [address] Dr. Ramses Dumas Glucose [Mass/Vol] 117 mg/dL Normal [facility] Comment on above: Performed By: #### C VDTBH #### [facility] [address] [place] [address] Dr. Ramses Dumas HbA1c (Bld) [Mass fraction] 5.7 % Normal 4.5-6.2 [facility] Comment on above: Performed By: #### C VDTBH #### [facility] [address] [place] [address] Dr. Ramses Dumas PROTIMEon 11-03-2022 INR Coag (PPP) [Relative time] 0.97 {INR} Normal [facility] Comment on above: Performed By: #### U KJ 24 #### [facility] [address] [place] [address] Dr. Ramses Dumas INR GUIDELINES SEE BELOW Normal [facility] Comment on above: Result Comment: TOÑA RED INR: 2.0 - 3.0 CONDITIONS NOT LISTED BELOW 2.5 - 3.5 FOR PROSTHETIC HEART VALVE REPLACEMENT 2.5 - 3.5 RECURRENT THROMBOSIS Performed By: #### U KJ 24 #### [facility] [address] [place] [address] Dr. Ramses Dumas PT Coag (PPP) [Time] 10.3 s Normal 9.0-11.6 [facility] Comment on above: Performed By: #### U KJ 24 #### [facility] [address] [place] [address] Dr. Ramses Dumas PTTon 11-03-2022 aPTT Coag (Bld) [Time] 27.7 s Normal 22.3-36.2 [facility] Comment on above: Performed By: #### U KJ 24 #### [facility] [address] [address] [address] Ramses Dumas TSHon 11-03-2022 TSH 0.667 uIU/mL Normal 0.358-3.740 [facility] Comment on above: Performed By: #### C VDTBH #### [facility] [address] [address] [address] Ramses Dumas PREG HCG QUALon 09-18-2022 , QUAL Negative Normal NEGATIVE [facility] Comment on above: Performed By: #### U KJ 24 #### [facility] [address] [address] [address] Ramses Dumas Covid-19 PCR ([facility])on 08-20 SARS-CoV-2 (COVID-19) RNA FRANCESCA+probe Ql (Unsp spec) Not detected Normal NOT DETECTED [facility] Comment on above: Result Comment: This test is not yet approved or cleared by the [place] FDA. When there are no FDA-approved or cleared tests available, and other criteria are met, FDA can make tests available under an emergency access mechanism called an Emergency Use Authorization (EUA). The EUA for this test is supported by the [place] of Health and Human Service's (HHS's) declaration [...] SARS-CoV-2. Performed By: #### C VDTBH #### [facility] [address] [place] [address] Dr. Ramses Dumas CBC AUTO DIFFon 09-05-2022 BASO # 0.1 103/ul Normal 0.0-0.1 [facility] Comment on above: Performed By: #### B LDCX2 #### [facility] [address] [place] [address] Dr. Ramses Dumas Basophils/100 WBC (Bld) 0.7 % Normal 0.2-2.0 [facility] Comment on above: Performed By: #### B LDCX2 #### [facility] [address] [place] [address] Dr. Ramses Dumas EO # 0.2 103/ul Normal 0.0-0.7 [facility] Comment on above: Performed By: #### B LDCX2 #### [facility] [address] [place] [address] Dr. Ramses Dumas Eosinophils/100 WBC (Bld) 2.2 % Normal 0.9-7.0 [facility] Comment on above: Performed By: #### B LDCX2 #### [facility] [address] [place] [address] Dr. Ramses Dumas Erythrocyte distribution width (RBC) [Ratio] 13.9 % Normal 11.0-15.0 [facility] Comment on above: Performed By: #### B LDCX2 #### [facility] [address] [place] [address] Dr. Ramses Dumas Hematocrit (Bld) [Volume fraction] 38.8 % Normal 36.0-48.0 [facility] Comment on above: Performed By: #### B LDCX2 #### [facility] [address] [place] [address] Dr. Ramses Dumas Hemoglobin (Bld) [Mass/Vol] 12.6 g/dL Normal 12.0-16.0 [facility] Comment on above: Performed By: #### B LDCX2 #### [facility] [address] [place] [address] Dr. Ramses Dumas IG # 0.03 10e3/ul Normal 0.00-0.03 [facility] Comment on above: Performed By: #### B LDCX2 #### [facility] [address] [place] [address] Dr. Ramses Dumas IG % 0.3 % Normal 0.0-0.5 [facility] Comment on above: Performed By: #### B LDCX2 #### [facility] [address] [place] [address] Dr. Ramses Dumas LYMPH # 2.3 103/ul Normal 1.2-3.8 [facility] Comment on above: Performed By: #### B LDCX2 #### [facility] [address] [place] [address] Dr. Ramses Dumas Lymphocytes/100 WBC (Bld) 21.3 % Normal 20.5-60.0 [facility] Comment on above: Performed By: #### B LDCX2 #### [facility] [address] [place] [address] Dr. Ramses Dumas MANUAL DIFF REQ NO Normal [facility] Comment on above: Performed By: #### B LDCX2 #### [facility] [address] [place] [address] Dr. Ramses Dumas MCH (RBC) [Entitic mass] 26.4 pg Critically low 26.7-34.0 [facility] Comment on above: Performed By: #### B LDCX2 #### [facility] [address] [place] [address] Dr. Ramses Dumas MCHC (RBC) [Mass/Vol] 32.5 g/dL Normal 29.9-35.2 [facility] Comment on above: Performed By: #### B LDCX2 #### [facility] [address] [place] [address] Dr. Ramses Dumas MCV (RBC) [Entitic vol] 81.2 fL Normal 81.0-99.0 [facility] Comment on above: Performed By: #### B LDCX2 #### [facility] [address] [place] [address] Dr. Ramses Dumas MONO # 0.8 103/ul Normal 0.3-0.8 [facility] Comment on above: Performed By: #### B LDCX2 #### [facility] [address] [place] [address] Dr. Ramses Dumas Monocytes/100 WBC (Bld) 7.4 % Normal 1.7-12.0 [facility] Comment on above: Performed By: #### B LDCX2 #### [facility] [address] [place] [address] Dr. Ramses Dumas NEUT # 7.3 103/ul Critically high 1.4-6.5 [facility] Comment on above: Performed By: #### B LDCX2 #### [facility] [address] [place] [address] Dr. Ramses Dumas Neutrophils/100 WBC (Bld) 68.1 % Normal 43.0-75.0 [facility] Comment on above: Performed By: #### B LDCX2 #### [facility] [address] [place] [address] Dr. Ramses Dumas Platelet mean volume (Bld) [Entitic vol] 8.8 fL Critically low 9.5-13.5 [facility] Comment on above: Performed By: #### B LDCX2 #### [facility] [address] [place] [address] Dr. Ramses Dumas PLT 323 103/ul Normal 150-450 [facility] Comment on above: Performed By: #### B LDCX2 #### [facility] [address] [place] [address] Dr. Ramses Dumas RBC 4.78 106/ul Normal 4.20-5.40 [facility] Comment on above: Performed By: #### B LDCX2 #### [facility] [address] [place] [address] Dr. Ramses Dumas WBC 10.7 103/ul Normal 4.0-11.0 [facility] Comment on above: Performed By: #### B LDCX2 #### [facility] [address] [place] [address] Dr. Ramses Dumas CULTURE URINEon 09-05-2022 CULTURE URINE Culture Observations : LIGHT GROWTH OF MIXED GENITAL DAIANA. NO POTENTIAL PATHOGENS SEEN. Normal [facility] Comment on above: Performed By: #### U RCX #### [facility] [address] [place] [address] Dr. Ramses Dumas ER URINE PROFILEon 2 Bilirubin Ql (U) Negative Normal NEGATIVE [facility] Comment on above: Performed By: #### B LDCX2 #### [facility] [address] [place] [address] Dr. Ramses Dumas Clarity (U) CLOUDY Abnormal CLEAR [facility] Comment on above: Performed By: #### B LDCX2 #### [facility] [address] [place] [address] Dr. Ramses Dumas Color (U) YELLOW Normal YELLOW [facility] Comment on above: Performed By: #### B LDCX2 #### [facility] [address] [place] [address] Dr. Ramses DELEON A micrscopic examination will be performed if indicated. Normal [facility] Comment on above: Performed By: #### B LDCX2 #### [facility] [address] [place] [address] Dr. Ramses Dumas Glucose Ql (U) Negative Normal NEGATIVE [facility] Comment on above: Performed By: #### B LDCX2 #### [facility] [address] [place] [address] Dr. Ramses Dumas Hemoglobin Ql (U) LARGE Abnormal NEGATIVE [facility] Comment on above: Performed By: #### B LDCX2 #### [facility] [address] [place] [address] Dr. Ramses Dumas Ketones Ql (U) Negative Normal NEGATIVE [facility] Comment on above: Performed By: #### B LDCX2 #### [facility] [address] [place] [address] Dr. Ramses Dumas LEUKOCYTES SMALL Abnormal NEGATIVE [facility] Comment on above: Performed By: #### B LDCX2 #### [facility] [address] [place] [address] Dr. Ramses Dumas Nitrite Ql (U) Negative Normal NEGATIVE [facility] Comment on above: Performed By: #### B LDCX2 #### [facility] [address] [place] [address] Dr. Ramses Dumas pH (U) 6.0 [pH] Normal 5-9 [facility] Comment on above: Performed By: #### B LDCX2 #### [facility] [address] [place] [address] Dr. Ramses Dumas Protein (U) [Mass/Vol] 100 mg/dL Abnormal NEGATIVE/ TRACE [facility] Comment on above: Performed By: #### B LDCX2 #### [facility] [address] [place] [address] Dr. Ramses Dumas SPEC GRAVITY >=1.030 Abnormal 1.005-<=1.02 5 [facility] Comment on above: Performed By: #### B LDCX2 #### [facility] [address] [place] [address] Dr. Ramses Dumas UR MICRO IND INDICATED Normal [facility] Comment on above: Performed By: #### B LDCX2 #### [facility] [address] [place] [address] Dr. Ramses Dumas Urobilinogen Qn (U) 0.2 {Lucero'U}/dL Normal 0.2 - 1. 0 [facility] Comment on above: Performed By: #### B LDCX2 #### [facility] [address] [place] [address] Dr. Ramses Dumas URon 09-05-2022 , QUAL Negative Normal NEGATIVE [facility] Comment on above: Performed By: #### B LDCX2 #### [facility] [address] [place] [address] Dr. Ramses Dumas PROF CHEM 8 (BAS METB)on Anion gap [Moles/Vol] 11.7 mmol/L Normal [facility] Comment on above: Performed By: #### C MP #### [facility] [address] [place] [address] Dr. Ramses Dumas Calcium [Mass/Vol] 9.1 mg/dL Normal 8.5-10.1 [facility] Comment on above: Performed By: #### C MP #### [facility] [address] [place] [address] Dr. Ramses Dumas Chloride [Moles/Vol] 103 mmol/L Normal 98-107 [facility] Comment on above: Performed By: #### C MP #### [facility] [address] [address] [address] Ramses Dumas CO2 [Moles/Vol] 25.9 mmol/L Normal 21.0-32.0 [facility] Comment on above: Performed By: #### C MP #### [facility] [address] [address] [address] Ramses Dumas Creatinine [Mass/Vol] 0.77 mg/dL Normal 0.55-1.02 [facility] Comment on above: Performed By: #### C MP #### [facility] [address] [address] [address] Ramses Dumas EGFR-AF CANADIAN >60 Normal >=60 [facility] Comment on above: Performed By: #### C MP #### [facility] [address] [address] [address] Ramses Dumas EGFR-NON AF CANADIAN >60 Normal >=60 [facility] Comment on above: Performed By: #### C MP #### [facility] [address] [address] [address] Ramses Dumas Glucose [Mass/Vol] 124 mg/dL Critically high 74-106 [facility] Comment on above: Performed By: #### C MP #### [facility] [address] [address] [address] Ramses Dumas Potassium [Moles/Vol] 3.6 mmol/L Normal 3.5-5.1 [facility] Comment on above: Performed By: #### C MP #### [facility] [address] [address] [address] Rasmes Dumas Sodium [Moles/Vol] 137 mmol/L Normal 136-145 [facility] Comment on above: Performed By: #### C MP #### [facility] [address] [address] [address] Ramses Dumas Urea nitrogen [Mass/Vol] 12.0 mg/dL Normal 7.0-18.0 [facility] Comment on above: Performed By: #### C MP #### [facility] [address] [address] [address] Ramses Dumas Urea nitrogen/Creatinine [Mass ratio] 15.6 mg/mg Normal [facility] Comment on above: Performed By: #### C MP #### [facility] [address] [place] [address] Dr. Ramses Dumas URINE MICROSCOPIC ONLYon AMORPHOUS CRYSTALS RARE Normal [facility] Comment on above: Performed By: #### B [id number] #### [facility] [address] [place] [address] Dr. Ramses Dumas BACTERIA TRACE Abnormal NONE SEEN [facility] Comment on above: Performed By: #### B LDCX2 #### [facility] [address] [place] [address] Dr. Ramses Dumas Bacteria identified Cx Nom (U) INDICATED Normal [facility] Comment on above: Performed By: #### B LDCX2 #### [facility] [address] [place] [address] Dr. Ramses Dumas CA OX CRYSTALS RARE Normal [facility] Comment on above: Performed By: #### B LDCX2 #### [facility] [address] [place] [address] Dr. Ramses Dumas CAST NONE SEEN Normal NONE SEEN [facility] Comment on above: Performed By: #### B LDCX2 #### [facility] [address] [place] [address] Dr. Ramses Dumas Crystals LM Nom (Urine sed) SEEN Abnormal NONE SEEN [facility] Comment on above: Performed By: #### B LDCX2 #### [facility] [address] [address] [address] Ramses Dumas Epithelial cells LM Ql (Urine sed) FEW Abnormal NONE SEEN /RARE [facility] Comment on above: Performed By: #### B LDCX2 #### [facility] [address] [place] [address] Dr. Ramses Dumas MUCOUS TRACE Abnormal NONE SEEN [facility] Comment on above: Performed By: #### B LDCX2 #### [facility] [address] [address] [address] Ramses Dumas RBC 50-75 Abnormal 0-2 [facility] Comment on above: Performed By: #### B LDCX2 #### [facility] [address] [place] [address] Dr. Ramses Dumas WBC 20-50 Abnormal NONE SEEN [facility] Comment on above: Performed By: #### B LDCX2 #### [facility] [address] [address] [address] Ramses Dumas YEAST PRESENT Abnormal NONE SEEN [facility] Comment on above: Performed By: #### B LDCX2 #### [facility] [address] [place] [address] Dr. Ramses Dumas US KIDNEYSon 09-05-2022 US [...] GLEN PEREZ Date: 2022-09-05 11:00 Normal [facility] CT ABD/PELVIS WO CONon 08-29 [...] ERICKA IGLESIAS Date: 2022-08-29 01:10 Normal [facility] CULTURE URINEon 08-29-2022 CULTURE URINE Culture Observations : LIGHT GROWTH OF MIXED GENITAL DAIANA. NO POTENTIAL PATHOGENS SEEN. Normal [facility] Comment on above: Performed By: #### U RCX #### [facility] [address] [place] [address] Dr. Ramses Dumas CBC AUTO DIFFon 08-28-2022 BASO # 0.1 103/ul Normal 0.0-0.1 [facility] Comment on above: Performed By: #### U RCX #### [facility] [address] [address] [address] Ramses Dumas Basophils/100 WBC (Bld) 0.5 % Normal 0.2-2.0 [facility] Comment on above: Performed By: #### U RCX #### [facility] [address] [place] [address] Dr. Ramses Dumas EO # 0.3 103/ul Normal 0.0-0.7 [facility] Comment on above: Performed By: #### U RCX #### [facility] [address] [address] [address] Ramses Dumas Eosinophils/100 WBC (Bld) 2.3 % Normal 0.9-7.0 [facility] Comment on above: Performed By: #### U RCX #### [facility] [address] [place] [address] Dr. Ramses Dumas Erythrocyte distribution width (RBC) [Ratio] 13.7 % Normal 11.0-15.0 [facility] Comment on above: Performed By: #### U RCX #### [facility] [address] [place] [address] Dr. Ramses Dumas Hematocrit (Bld) [Volume fraction] 36.7 % Normal 36.0-48.0 [facility] Comment on above: Performed By: #### U RCX #### [facility] [address] [place] [address] Dr. Ramses Dumas Hemoglobin (Bld) [Mass/Vol] 12.3 g/dL Normal 12.0-16.0 [facility] Comment on above: Performed By: #### U RCX #### [facility] [address] [place] [address] Dr. Ramses Dumas IG # 0.16 10e3/ul Critically high 0.00-0.03 [facility] Comment on above: Performed By: #### U RCX #### [facility] [address] [place] [address] Dr. Ramses Dumas IG % 1.1 % Critically high 0.0-0.5 [facility] Comment on above: Performed By: #### U RCX #### [facility] [address] [place] [address] Dr. Ramses Dumas LYMPH # 4.6 103/ul Critically high 1.2-3.8 [facility] Comment on above: Performed By: #### U RCX #### [facility] [address] [place] [address] Dr. Ramses Dumas Lymphocytes/100 WBC (Bld) 31.8 % Normal 20.5-60.0 [facility] Comment on above: Performed By: #### U RCX #### [facility] [address] [place] [address] Dr. Ramses Dumas MANUAL DIFF REQ NO Normal [facility] Comment on above: Performed By: #### U RCX #### [facility] [address] [place] [address] Dr. Ramses Dumas MCH (RBC) [Entitic mass] 26.9 pg Normal 26.7-34.0 [facility] Comment on above: Performed By: #### U RCX #### [facility] [address] [place] [address] Dr. Ramses Dumas MCHC (RBC) [Mass/Vol] 33.5 g/dL Normal 29.9-35.2 [facility] Comment on above: Performed By: #### U RCX #### [facility] [address] [place] [address] Dr. Ramses Dumas MCV (RBC) [Entitic vol] 80.3 fL Critically low 81.0-99.0 [facility] Comment on above: Performed By: #### U RCX #### [facility] [address] [place] [address] Dr. Ramses Dumas MONO # 1.0 103/ul Critically high 0.3-0.8 [facility] Comment on above: Performed By: #### U RCX #### [facility] [address] [place] [address] Dr. Ramses Dumas Monocytes/100 WBC (Bld) 7.0 % Normal 1.7-12.0 [facility] Comment on above: Performed By: #### U RCX #### [facility] [address] [place] [address] Dr. Ramses Dumas NEUT # 8.2 103/ul Critically high 1.4-6.5 [facility] Comment on above: Performed By: #### U RCX #### [facility] [address] [place] [address] Dr. Ramses Dumas Neutrophils/100 WBC (Bld) 57.3 % Normal 43.0-75.0 [facility] Comment on above: Performed By: #### U RCX #### [facility] [address] [place] [address] Dr. Ramses Dumas Platelet mean volume (Bld) [Entitic vol] 8.6 fL Critically low 9.5-13.5 [facility] Comment on above: Performed By: #### U RCX #### [facility] [address] [place] [address] Dr. Ramses Dumas PLT 395 103/ul Normal 150-450 [facility] Comment on above: Performed By: #### U RCX #### [facility] [address] [place] [address] Dr. Ramses Dumas RBC 4.57 106/ul Normal 4.20-5.40 [facility] Comment on above: Performed By: #### U RCX #### [facility] [address] [place] [address] Dr. Ramses Dumas WBC 14.3 103/ul Critically high 4.0-11.0 [facility] Comment on above: Performed By: #### U RCX #### [facility] [address] [place] [address] Dr. Ramses KUMAR URINE PROFILEon 2 Bilirubin Ql (U) Negative Normal NEGATIVE [facility] Comment on above: Performed By: #### U KJ 24 #### [facility] [address] [place] [address] Dr. Ramses Dumas Clarity (U) CLEAR Normal CLEAR [facility] Comment on above: Performed By: #### U KJ 24 #### [facility] [address] [place] [address] Dr. Ramses Dumsa Color (U) LT. YELLOW Normal YELLOW [facility] Comment on above: Performed By: #### U KJ 24 #### [facility] [address] [place] [address] Dr. Ramses Dumas ERUAHWalter A micrscopic examination will be performed if indicated. Normal [facility] Comment on above: Performed By: #### U KJ 24 #### [facility] [address] [address] [address] Ramses Dumas Glucose Ql (U) Negative Normal NEGATIVE [facility] Comment on above: Performed By: #### U KJ 24 #### [facility] [address] [place] [address] Dr. Ramses Dumas Hemoglobin Ql (U) LARGE Abnormal NEGATIVE [facility] Comment on above: Performed By: #### U KJ 24 #### [facility] [address] [place] [address] Dr. Ramses Dumas Ketones Ql (U) Negative Normal NEGATIVE [facility] Comment on above: Performed By: #### U KJ 24 #### [facility] [address] [place] [address] Dr. Ramses Dumas LEUKOCYTES MODERATE Abnormal NEGATIVE [facility] Comment on above: Performed By: #### U KJ 24 #### [facility] [address] [place] [address] Dr. Ramses Dumas Nitrite Ql (U) Negative Normal NEGATIVE [facility] Comment on above: Performed By: #### U KJ 24 #### [facility] [address] [place] [address] Dr. Ramses Dumas pH (U) 6.5 [pH] Normal 5-9 [facility] Comment on above: Performed By: #### U KJ 24 #### [facility] [address] [place] [address] Dr. Ramses Dumas Protein (U) [Mass/Vol] 100 mg/dL Abnormal NEGATIVE/ TRACE [facility] Comment on above: Performed By: #### U KJ 24 #### [facility] [address] [place] [address] Dr. Ramses Dumas SPEC GRAVITY 1.020 Normal 1.005-<=1.02 5 [facility] Comment on above: Performed By: #### U KJ 24 #### [facility] [address] [place] [address] Dr. Ramses Dumas UR MICRO IND INDICATED Normal [facility] Comment on above: Performed By: #### U KJ 24 #### [facility] [address] [place] [address] Dr. Ramses Dumas Urobilinogen Qn (U) 0.2 {Lucero'U}/dL Normal 0.2 - 1. 0 [facility] Comment on above: Performed By: #### U KJ 24 #### [facility] [address] [place] [address] Dr. Ramses Dumas PROF 14(COMP METB)on 022 Albumin [Mass/Vol] 3.3 g/dL Critically low 3.4-5.0 [facility] e [facility] Comment on above: Performed By: #### C MP #### [facility] [address] [place] [address] Dr. Ramses Dumas Albumin/Globulin [Mass ratio] 0.8 {ratio} Normal [facility] Comment on above: Performed By: #### C MP #### [facility] [address] [place] [address] Dr. Ramses Dumas ALP [Catalytic activity/Vol] 108 U/L Normal 46-116 [facility] Comment on above: Performed By: #### C MP #### [facility] [address] [place] [address] Dr. Ramses Dumas ALT [Catalytic activity/Vol] 103 U/L Critically high 14-59 [facility] Comment on above: Performed By: #### C MP #### [facility] [address] [place] [address] Dr. Ramses Dumas Anion gap [Moles/Vol] 6.6 mmol/L Normal [facility] Comment on above: Performed By: #### C MP #### [facility] [address] [place] [address] Dr. Ramses Dumas AST [Catalytic activity/Vol] 21 U/L Normal 15-37 [facility] Comment on above: Performed By: #### C MP #### [facility] [address] [place] [address] Dr. Ramses Dumas Bilirubin [Mass/Vol] 0.2 mg/dL Normal 0.2-1.0 [facility] Comment on above: Performed By: #### C MP #### [facility] [address] [place] [address] Dr. Ramses Dumas Calcium [Mass/Vol] 9.2 mg/dL Normal 8.5-10.1 [facility] Comment on above: Performed By: #### C MP #### [facility] [address] [address] [address] Ramses Dumas Chloride [Moles/Vol] 102 mmol/L Normal 98-107 [facility] Comment on above: Performed By: #### C MP #### [facility] [address] [address] [address] Ramses Dumas CO2 [Moles/Vol] 28.8 mmol/L Normal 21.0-32.0 [facility] Comment on above: Performed By: #### C MP #### [facility] [address] [place] [address] Dr. Ramses Dumas Creatinine [Mass/Vol] 0.92 mg/dL Normal 0.55-1.02 [facility] Comment on above: Performed By: #### C MP #### [facility] [address] [place] [address] Dr. Ramses Dumas EGFR-AF CANADIAN >60 Normal >=60 [facility] Comment on above: Performed By: #### C MP #### [facility] [address] [place] [address] Dr. Ramses Dumas EGFR-NON AF CANADIAN >60 Normal >=60 [facility] Comment on above: Performed By: #### C MP #### [facility] [address] [place] [address] Dr. Ramses Dumas Globulin (S) [Mass/Vol] 4.1 g/dL Normal [facility] Comment on above: Performed By: #### C MP #### [facility] [address] [address] [address] Ramses Dumas Glucose [Mass/Vol] 114 mg/dL Critically high 74-106 [facility] Comment on above: Performed By: #### C MP #### [facility] [address] [place] [address] Dr. Ramses Dumas Potassium [Moles/Vol] 3.4 mmol/L Critically low 3.5-5.1 [facility] Comment on above: Performed By: #### C MP #### [facility] [address] [address] [address] Ramses uDmas Protein [Mass/Vol] 7.4 g/dL Normal 6.4-8.2 [facility] Comment on above: Performed By: #### C MP #### [facility] [address] [address] [address] Ramses Dumas Sodium [Moles/Vol] 134 mmol/L Critically low 136-145 [facility] Comment on above: Performed By: #### C MP #### [facility] [address] [address] [address] Ramses Dumas Urea nitrogen [Mass/Vol] 11.0 mg/dL Normal 7.0-18.0 [facility] Comment on above: Performed By: #### C MP #### [facility] [address] [place] [address] Dr. Ramses Dumas Urea nitrogen/Creatinine [Mass ratio] 12.0 mg/mg Normal [facility] Comment on above: Performed By: #### C MP #### [facility] [address] [place] [address] Dr. Ramses Dumas URINE MICROSCOPIC ONLYon BACTERIA MODERATE Abnormal NONE SEEN [facility] Comment on above: Performed By: #### U KJ 24 #### [facility] [address] [place] [address] Dr. Ramses Dumas Bacteria identified Cx Nom (U) INDICATED Normal [facility] Comment on above: Performed By: #### U KJ 24 #### [facility] [address] [place] [address] Dr. Ramses Dumas CAST NONE SEEN Normal NONE SEEN [facility] Comment on above: Performed By: #### U KJ 24 #### [facility] [address] [place] [address] Dr. Ramses Dumas Crystals LM Nom (Urine sed) NONE SEEN Normal NONE SEEN [facility] Comment on above: Performed By: #### U KJ 24 #### [facility] [address] [place] [address] Dr. Ramses Dumas Epithelial cells LM Ql (Urine sed) RARE Normal NONE SEEN /RARE [facility] Comment on above: Performed By: #### U KJ 24 #### [facility] [address] [place] [address] Dr. Ramses Dumas MUCOUS NONE SEEN Normal NONE SEEN [facility] Comment on above: Performed By: #### U KJ 24 #### [facility] [address] [place] [address] Dr. Ramses Dumas RBC 20-50 Abnormal 0-2 [facility] Comment on above: Performed By: #### U KJ 24 #### [facility] [address] [place] [address] Dr. Ramses Dumas WBC 5-10 Abnormal NONE SEEN [facility] Comment on above: Performed By: #### U KJ 24 #### [facility] [address] [place] [address] Dr. Ramses Dumas CULTURE BLOODon 08-25-2022 Microscopic [...] F Tetracycline >=16 R F Normal [facility] Comment on above: Performed By: #### B LDCX2 #### [facility] [address] [place] [address] Dr. Ramses Dumas Microscopic examination of blood, [...] F Tetracycline >=16 R F Normal [facility] Comment on above: Performed By: #### C BC #### [facility] [address] [place] [address] Dr. Ramses Dumas CBC AUTO DIFFon 08-24-2022 BASO # 0.0 103/ul Normal 0.0-0.1 [facility] Comment on above: Performed By: #### C BC #### [facility] [address] [place] [address] Dr. Ramses Dumas Basophils/100 WBC (Bld) 0.1 % Critically low 0.2-2.0 [facility] Comment on above: Performed By: #### C BC #### [facility] [address] [place] [address] Dr. Ramses Dumas EO # 0.0 103/ul Normal 0.0-0.7 [facility] Comment on above: Performed By: #### C BC #### [facility] [address] [place] [address] Dr. Ramses Dumas Eosinophils/100 WBC (Bld) 0.0 % Critically low 0.9-7.0 [facility] Comment on above: Performed By: #### C BC #### [facility] [address] [place] [address] Dr. Ramses Dumas Erythrocyte distribution width (RBC) [Ratio] 13.5 % Normal 11.0-15.0 [facility] Comment on above: Performed By: #### C BC #### [facility] [address] [place] [address] Dr. Ramses Dumas Hematocrit (Bld) [Volume fraction] 33.0 % Critically low 36.0-48.0 [facility] Comment on above: Performed By: #### C BC #### [facility] [address] [address] [address] Ramses Dumas Hemoglobin (Bld) [Mass/Vol] 10.7 g/dL Critically low 12.0-16.0 [facility] Comment on above: Performed By: #### C BC #### [facility] [address] [address] [address] Ramses Dumas IG # 0.04 10e3/ul Critically high 0.00-0.03 [facility] Comment on above: Performed By: #### C BC #### [facility] [address] [place] [address] Dr. Ramses Dumas IG % 0.4 % Normal 0.0-0.5 [facility] Comment on above: Performed By: #### C BC #### [facility] [address] [place] [address] Dr. Ramses Dumas LYMPH # 0.8 103/ul Critically low 1.2-3.8 [facility] Comment on above: Performed By: #### C BC #### [facility] [address] [place] [address] Dr. Ramses Dumas Lymphocytes/100 WBC (Bld) 7.9 % Critically low 20.5-60.0 [facility] Comment on above: Performed By: #### C BC #### [facility] [address] [place] [address] Dr. Ramses Dumas MANUAL DIFF REQ NO Normal [facility] Comment on above: Performed By: #### C BC #### [facility] [address] [place] [address] Dr. Ramses Dumas MCH (RBC) [Entitic mass] 26.5 pg Critically low 26.7-34.0 [facility] Comment on above: Performed By: #### C BC #### [facility] [address] [place] [address] Dr. Ramses Dumas MCHC (RBC) [Mass/Vol] 32.4 g/dL Normal 29.9-35.2 [facility] Comment on above: Performed By: #### C BC #### [facility] [address] [place] [address] Dr. Ramses Dumas MCV (RBC) [Entitic vol] 81.7 fL Normal 81.0-99.0 [facility] Comment on above: Performed By: #### C BC #### [facility] [address] [place] [address] Dr. Ramses Dumas MONO # 0.6 103/ul Normal 0.3-0.8 [facility] Comment on above: Performed By: #### C BC #### [facility] [address] [place] [address] Dr. Ramses Dumas Monocytes/100 WBC (Bld) 6.3 % Normal 1.7-12.0 [facility] Comment on above: Performed By: #### C BC #### [facility] [address] [place] [address] Dr. Ramses Dumas NEUT # 8.6 103/ul Critically high 1.4-6.5 [facility] Comment on above: Performed By: #### C BC #### [facility] [address] [place] [address] Dr. Ramses Dumas Neutrophils/100 WBC (Bld) 85.3 % Critically high 43.0-75.0 [facility] Comment on above: Performed By: #### C BC #### [facility] [address] [place] [address] Dr. Ramses Dumas Platelet mean volume (Bld) [Entitic vol] 9.1 fL Critically low 9.5-13.5 [facility] Comment on above: Performed By: #### C BC #### [facility] [address] [place] [address] Dr. Ramses Dumas PLT 248 103/ul Normal 150-450 [facility] Comment on above: Performed By: #### C BC #### [facility] [address] [place] [address] Dr. Ramses Dumas RBC 4.04 106/ul Critically low 4.20-5.40 [facility] Comment on above: Performed By: #### C BC #### [facility] [address] [place] [address] Dr. Ramses Dumas WBC 10.1 103/ul Normal 4.0-11.0 [facility] Comment on above: Performed By: #### C BC #### [facility] [address] [place] [address] Dr. Ramses Dumas CULTURE URINEon 08-24-2022 CULTURE [...] S F Tetracycline >=16 R F Normal [facility] Comment on above: Performed By: #### U RCX #### [facility] [address] [place] [address] Dr. Ramses Dumas PROF 14(COMP METB)on 022 Albumin [Mass/Vol] 2.4 g/dL Critically low 3.4-5.0 [facility] Comment on above: Performed By: #### C VDTBH #### [facility] [address] [place] [address] Dr. Ramses Dumas Albumin/Globulin [Mass ratio] 0.7 {ratio} Normal [facility] Comment on above: Performed By: #### C VDTBH #### [facility] [address] [place] [address] Dr. Ramses Dumas ALP [Catalytic activity/Vol] 95 U/L Normal 46-116 [facility] Comment on above: Performed By: #### C VDTBH #### [facility] [address] [place] [address] Dr. Ramses Dumas ALT [Catalytic activity/Vol] 327 U/L Critically high 14-59 [facility] Comment on above: Performed By: #### C VDTBH #### [facility] [address] [place] [address] Dr. Ramses Dumas Anion gap [Moles/Vol] 8.7 mmol/L Normal [facility] Comment on above: Performed By: #### C VDTBH #### [facility] [address] [place] [address] Dr. Ramses Dumas AST [Catalytic activity/Vol] 165 U/L Critically high 15-37 [facility] Comment on above: Performed By: #### C VDTBH #### [facility] [address] [place] [address] Dr. Ramses Dumas Bilirubin [Mass/Vol] 0.4 mg/dL Normal 0.2-1.0 [facility] Comment on above: Performed By: #### C VDTBH #### [facility] [address] [place] [address] Dr. Ramses Dumas Calcium [Mass/Vol] 8.0 mg/dL Critically low 8.5-10.1 [facility] Comment on above: Performed By: #### C VDTBH #### [facility] [address] [place] [address] Dr. Ramses Dumas Chloride [Moles/Vol] 108 mmol/L Critically high 98-107 [facility] Comment on above: Performed By: #### C VDTBH #### [facility] [address] [place] [address] Dr. Ramses Dumas CO2 [Moles/Vol] 25.3 mmol/L Normal 21.0-32.0 [facility] Comment on above: Performed By: #### C VDTBH #### [facility] [address] [place] [address] Dr. Ramses Dumas Creatinine [Mass/Vol] 0.70 mg/dL Normal 0.55-1.02 [facility] Comment on above: Performed By: #### C VDTBH #### [facility] [address] [place] [address] Dr. Ramses Dumas EGFR-AF CANADIAN >60 Normal >=60 [facility] Comment on above: Performed By: #### C VDTBH #### [facility] [address] [place] [address] Dr. Ramses Dumas EGFR-NON AF CANADIAN >60 Normal >=60 [facility] Comment on above: Performed By: #### C VDTBH #### [facility] [address] [place] [address] Dr. Ramses Dumas Globulin (S) [Mass/Vol] 3.6 g/dL Normal [facility] Comment on above: Performed By: #### C VDTBH #### [facility] [address] [place] [address] Dr. Ramses Dumas Glucose [Mass/Vol] 160 mg/dL Critically high 74-106 [facility] Comment on above: Performed By: #### C VDTBH #### [facility] [address] [place] [address] Dr. Ramses Dumas Potassium [Moles/Vol] 4.0 mmol/L Normal 3.5-5.1 [facility] Comment on above: Performed By: #### C VDTBH #### [facility] [address] [place] [address] Dr. Ramses Dumas Protein [Mass/Vol] 6.0 g/dL Critically low 6.4-8.2 [facility] Comment on above: Performed By: #### C VDTBH #### [facility] [address] [place] [address] Dr. Ramses Dumas Sodium [Moles/Vol] 138 mmol/L Normal 136-145 [facility] Comment on above: Performed By: #### C VDTBH #### [facility] [address] [place] [address] Dr. Ramses Dumas Urea nitrogen [Mass/Vol] 6.0 mg/dL Critically low 7.0-18.0 [facility] Comment on above: Performed By: #### C VDTBH #### [facility] [address] [place] [address] Dr. Ramses Dumas Urea nitrogen/Creatinine [Mass ratio] 8.6 mg/mg Normal [facility] Comment on above: Performed By: #### C VDTBH #### [facility] [address] [place] [address] Dr. Ramses Dumas CBC AUTO DIFFon 08-23-2022 BASO # 0.0 103/ul Normal 0.0-0.1 [facility] Comment on above: Performed By: #### U RCX #### [facility] [address] [place] [address] Dr. Ramses Dumas Basophils/100 WBC (Bld) 0.2 % Normal 0.2-2.0 [facility] Comment on above: Performed By: #### U RCX #### [facility] [address] [place] [address] Dr. Ramses Dumas EO # 0.0 103/ul Normal 0.0-0.7 [facility] Comment on above: Performed By: #### U RCX #### [facility] [address] [place] [address] Dr. Ramses Dumas Eosinophils/100 WBC (Bld) 0.1 % Critically low 0.9-7.0 [facility] Comment on above: Performed By: #### U RCX #### [facility] [address] [place] [address] Dr. Ramses Dumas Erythrocyte distribution width (RBC) [Ratio] 13.4 % Normal 11.0-15.0 [facility] Comment on above: Performed By: #### U RCX #### [facility] [address] [place] [address] Dr. Ramses Dumas Hematocrit (Bld) [Volume fraction] 34.1 % Critically low 36.0-48.0 [facility] Comment on above: Performed By: #### U RCX #### [facility] [address] [place] [address] Dr. Ramses Dumas Hemoglobin (Bld) [Mass/Vol] 10.9 g/dL Critically low 12.0-16.0 [facility] Comment on above: Performed By: #### U RCX #### [facility] [address] [place] [address] Dr. Ramses Dumas IG # 0.02 10e3/ul Normal 0.00-0.03 [facility] Comment on above: Performed By: #### U RCX #### [facility] [address] [address] [address] Ramses Dumas IG % 0.2 % Normal 0.0-0.5 [facility] Comment on above: Performed By: #### U RCX #### [facility] [address] [address] [address] Ramses Dumas LYMPH # 0.7 103/ul Critically low 1.2-3.8 [facility] Comment on above: Performed By: #### U RCX #### [facility] [address] [address] [address] Ramses Dumas Lymphocytes/100 WBC (Bld) 6.9 % Critically low 20.5-60.0 [facility] Comment on above: Performed By: #### U RCX #### [facility] [address] [address] [address] Ramses Dumas MANUAL DIFF REQ NO Normal [facility] Comment on above: Performed By: #### U RCX #### [facility] [address] [address] [address] Ramses Dumas MCH (RBC) [Entitic mass] 26.1 pg Critically low 26.7-34.0 [facility] Comment on above: Performed By: #### U RCX #### [facility] [address] [address] [address] Ramses Dumas MCHC (RBC) [Mass/Vol] 32.0 g/dL Normal 29.9-35.2 [facility] Comment on above: Performed By: #### U RCX #### [facility] [address] [address] [address] Ramses Dumas MCV (RBC) [Entitic vol] 81.8 fL Normal 81.0-99.0 [facility] Comment on above: Performed By: #### U RCX #### [facility] [address] [address] [address] Ramses Dumas MONO # 0.6 103/ul Normal 0.3-0.8 [facility] Comment on above: Performed By: #### U RCX #### [facility] [address] [address] [address] Ramses Dumas Monocytes/100 WBC (Bld) 5.9 % Normal 1.7-12.0 [facility] Comment on above: Performed By: #### U RCX #### [facility] [address] [address] [address] Ramses Dumas NEUT # 8.2 103/ul Critically high 1.4-6.5 [facility] Comment on above: Performed By: #### U RCX #### [facility] [address] [place] [address] Dr. Ramses Dumas Neutrophils/100 WBC (Bld) 86.7 % Critically high 43.0-75.0 [facility] Comment on above: Performed By: #### U RCX #### [facility] [address] [place] [address] Dr. Ramses Dumas Platelet mean volume (Bld) [Entitic vol] 9.4 fL Critically low 9.5-13.5 [facility] Comment on above: Performed By: #### U RCX #### [facility] [address] [place] [address] Dr. Ramses Dumas PLT 235 103/ul Normal 150-450 [facility] Comment on above: Performed By: #### U RCX #### [facility] [address] [place] [address] Dr. Ramses Dumas RBC 4.17 106/ul Critically low 4.20-5.40 [facility] Comment on above: Performed By: #### U RCX #### [facility] [address] [place] [address] Dr. Ramses Dumas WBC 9.5 103/ul Normal 4.0-11.0 [facility] Comment on above: Performed By: #### U RCX #### [facility] [address] [place] [address] Dr. Ramses Dumas PROF 14(COMP METB)on 022 Albumin [Mass/Vol] 2.6 g/dL Critically low 3.4-5.0 [facility] Comment on above: Performed By: #### U KJ 24 #### [facility] [address] [address] [address] Ramses Dumas Albumin/Globulin [Mass ratio] 0.8 {ratio} Normal [facility] Comment on above: Performed By: #### U KJ 24 #### [facility] [address] [address] [address] Ramses Dumas ALP [Catalytic activity/Vol] 82 U/L Normal 46-116 [facility] Comment on above: Performed By: #### U KJ 24 #### [facility] [address] [address] [address] Ramses Dumas ALT [Catalytic activity/Vol] 257 U/L Critically high 14-59 [facility] Comment on above: Performed By: #### U KJ 24 #### [facility] [address] [place] [address] Dr. Ramses Dumas Anion gap [Moles/Vol] 10.3 mmol/L Normal [facility] Comment on above: Performed By: #### U KJ 24 #### [facility] [address] [place] [address] Dr. Ramses Dumas AST [Catalytic activity/Vol] 196 U/L Critically high 15-37 [facility] Comment on above: Performed By: #### U KJ 24 #### [facility] [address] [place] [address] Dr. Ramses Dumas Bilirubin [Mass/Vol] 0.5 mg/dL Normal 0.2-1.0 [facility] Comment on above: Performed By: #### U KJ 24 #### [facility] [address] [place] [address] Dr. Ramses Dumas Calcium [Mass/Vol] 7.8 mg/dL Critically low 8.5-10.1 [facility] Comment on above: Performed By: #### U KJ 24 #### [facility] [address] [place] [address] Dr. Ramses Dumas Chloride [Moles/Vol] 104 mmol/L Normal 98-107 [facility] Comment on above: Performed By: #### U KJ 24 #### [facility] [address] [address] [address] Ramses Dumas CO2 [Moles/Vol] 24.4 mmol/L Normal 21.0-32.0 [facility] Comment on above: Performed By: #### U KJ 24 #### [facility] [address] [address] [address] Ramses Dumas Creatinine [Mass/Vol] 1.09 mg/dL Critically high 0.55-1.02 [facility] Comment on above: Performed By: #### U KJ 24 #### [facility] [address] [address] [address] Ramses Dumas EGFR-AF CANADIAN >60 Normal >=60 [facility] Comment on above: Performed By: #### U KJ 24 #### [facility] [address] [address] [address] Ramses Dumas EGFR-NON AF CANADIAN 59 mL/min/1.73m2 Critically low >=60 [facility] Comment on above: Performed By: #### U KJ 24 #### [facility] [address] [address] [address] Ramses Dumas Globulin (S) [Mass/Vol] 3.3 g/dL Normal [facility] Comment on above: Performed By: #### U KJ 24 #### [facility] [address] [address] [address] Ramses Dumas Glucose [Mass/Vol] 143 mg/dL Critically high 74-106 [facility] Comment on above: Performed By: #### U KJ 24 #### [facility] [address] [address] [address] Ramses Dumas Potassium [Moles/Vol] 3.7 mmol/L Normal 3.5-5.1 [facility] Comment on above: Performed By: #### U KJ 24 #### [facility] [address] [address] [address] Ramses Dumas Protein [Mass/Vol] 5.9 g/dL Critically low 6.4-8.2 Th [facility] Comment on above: Performed By: #### U KJ 24 #### [facility] [address] [place] [address] Dr. Ramses Dumas Sodium [Moles/Vol] 135 mmol/L Critically low 136-145 [facility] Comment on above: Performed By: #### U KJ 24 #### [facility] [address] [place] [address] Dr. Ramses Dumas Urea nitrogen [Mass/Vol] 10.0 mg/dL Normal 7.0-18.0 [facility] Comment on above: Performed By: #### U KJ 24 #### [facility] [address] [place] [address] Dr. Ramses Dumas Urea nitrogen/Creatinine [Mass ratio] 9.2 mg/mg Normal [facility] Comment on above: Performed By: #### U KJ 24 #### [facility] [address] [place] [address] Dr. Ramses Dumas BLOOD CULTURE ID PANELon A. baumannii Not detected Normal NOT DETECTED [facility] Comment on above: Performed By: #### C VDTBH #### [facility] [address] [place] [address] Dr. Ramses Dumas Bacteriodes fragilis Not detected Normal NOT DETECTED [facility] Comment on above: Performed By: #### C VDTBH #### [facility] [address] [place] [address] Dr. Ramses Dumas BCID CONTROLS PASSED Normal [facility] Comment on above: Performed By: #### C VDTBH #### [facility] [address] [place] [address] Dr. Ramses Dumas BCIDBTHD BLOOD CULTURE BOTTLE INFORMATION Normal [facility] Comment on above: Performed By: #### C VDTBH #### [facility] [address] [place] [address] Dr. Ramses Dumas BCIDHD1 ANTIMICROBIAL RESISTANCE GENES Normal [facility] Comment on above: Performed By: #### C VDTBH #### [facility] [address] [place] [address] Dr. Ramses Dumas BCIDHD2 SEE BELOW [facility] Comment on above: Result Comment: Note : Antimicrobial resitance can occur via multiple mechanisms. A Not Detected result for the [employer] antomicrobial resistance gene assays does not indicate antimicrobial susceptibility. Subculturing is required for species identification and susceptibility testing of isolates. Performed By: #### C VDTBH #### [facility] [address] [place] [address] Dr. Ramses Dumas BCIDHD3 Positive Normal [facility] Comment on above: Performed By: #### C VDTBH #### [facility] [address] [place] [address] Dr. Ramses Dumas BCIDHD4 Negative Normal [facility] Comment on above: Performed By: #### C VDTBH #### [facility] [address] [place] [address] Dr. Ramses Dumas BCIDHD5 YEAST Normal [facility] Comment on above: Performed By: #### C VDTBH #### [facility] [address] [place] [address] Dr. Ramses Dumas Bottle Set: Set 1 Normal [facility] Comment on above: Performed By: #### C VDTBH #### [facility] [address] [place] [address] Dr. Ramses Dumas Bottle: Pediatric Normal [facility] Comment on above: Performed By: #### C VDTBH #### [facility] [address] [place] [address] Dr. Ramses Dumas C. neoformans/gattii Not detected Normal NOT DETECTED [facility] Comment on above: Performed By: #### C VDTBH #### [facility] [address] [place] [address] Dr. Ramses Dumas Kim albicans Not detected Normal NOT DETECTED [facility] Comment on above: Performed By: #### C VDTBH #### [facility] [address] [place] [address] Dr. Ramses Dumas Kim auris Not detected Normal NOT DETECTED [facility] Comment on above: Performed By: #### C VDTBH #### [facility] [address] [place] [address] Dr. Ramses Dumas Kim glabrata Not detected Normal NOT DETECTED [facility] Comment on above: Performed By: #### C VDTBH #### [facility] [address] [address] [address] Ramses Dumas Kim Krusei Not detected Normal NOT DETECTED [facility] Comment on above: Performed By: #### C VDTBH #### [facility] [address] [place] [address] Dr. Ramses Dumas Kim Parapsilosis Not detected Normal NOT DETECTED [facility] Comment on above: Performed By: #### C VDTBH #### [facility] [address] [address] [address] Ramses Dumas Kim Tropicalis Not detected Normal NOT DETECTED [facility] Comment on above: Performed By: #### C VDTBH #### [facility] [address] [place] [address] Dr. Ramses Dumas CTX-M Resistant Gene Not Applicable Normal NOT DETECTE D [facility] Comment on above: Performed By: #### C VDTBH #### [facility] [address] [place] [address] Dr. Ramses Dumas E. Cloacae complex Not detected Normal NOT DETECTED [facility] Comment on above: Performed By: #### C VDTBH #### [facility] [address] [place] [address] Dr. Ramses Dumas E. faecalis Not detected Normal NOT DETECTED [facility] Comment on above: Performed By: #### C VDTBH #### [facility] [address] [place] [address] Dr. Ramses Dumas E. faecium Not detected Normal NOT DETECTED [facility] Comment on above: Performed By: #### C VDTBH #### [facility] [address] [place] [address] Dr. Ramses Dumas Enterobacteriaceae Not detected Normal NOT DETECTED [facility] Comment on above: Performed By: #### C VDTBH #### [facility] [address] [place] [address] Dr. Ramses Dumas Escherichia coli Not detected Normal NOT DETECTED [facility] Comment on above: Performed By: #### C VDTBH #### [facility] [address] [place] [address] Dr. Ramses Dumas H. influenzae Not detected Normal NOT DETECTED [facility] Comment on above: Performed By: #### C VDTBH #### [facility] [address] [place] [address] Dr. Ramses Dumas IMP Resistant Gene Not Applicable Normal NOT DETECTED [facility] Comment on above: Performed By: #### C VDTBH #### [facility] [address] [place] [address] Dr. Ramses Dumas K. oxytoca Not detected Normal NOT DETECTED [facility] Comment on above: Performed By: #### C VDTBH #### [facility] [address] [place] [address] Dr. Ramses Dumas K. pneumoniae Not detected Normal NOT DETECTED [facility] Comment on above: Performed By: #### C VDTBH #### [facility] [address] [place] [address] Dr. Ramses Dumas Klebsiella aerogenes Not detected Normal NOT DETECTED [facility] Comment on above: Performed By: #### C VDTBH #### [facility] [address] [place] [address] Dr. Ramses Dumas KPC Resistant Gene Not detected Normal NOT DETECTED [facility] Comment on above: Performed By: #### C VDTBH #### [facility] [address] [place] [address] Dr. Ramses Dumas List. monocytogenes Not detected Normal NOT DETECTED [facility] Comment on above: Performed By: #### C VDTBH #### [facility] [address] [place] [address] Dr. Ramses Dumas Mcr-1 Resistant Gene Not Applicable Normal NOT DETECTE D [facility] Comment on above: Performed By: #### C VDTBH #### [facility] [address] [place] [address] Dr. Ramses Dumas mecA/C Not Applicable Normal NOT DETECTED [facility] Comment on above: Performed By: #### C VDTBH #### [facility] [address] [place] [address] Dr. Ramses Dumas mecA/C MREJ Not Applicable Normal NOT DETECTED [facility] Comment on above: Performed By: #### C VDTBH #### [facility] [address] [place] [address] Dr. Ramses Dumas N. meningitidis Not detected Normal NOT DETECTED [facility] Comment on above: Performed By: #### C VDTBH #### [facility] [address] [place] [address] Dr. Ramses Dumas NDM Resistant Gene Not Applicable Normal NOT DETECTED [facility] Comment on above: Performed By: #### C VDTBH #### [facility] [address] [place] [address] Dr. Ramses Dumas Oxa-48-like Not Applicable Normal NOT DETECTED [facility] Comment on above: Performed By: #### C VDTBH #### [facility] [address] [place] [address] Dr. Ramses Dumas Proteus Not detected Normal NOT DETECTED [facility] Comment on above: Performed By: #### C VDTBH #### [facility] [address] [place] [address] Dr. Ramses Dumas Pseud. aeruginosa Not detected Normal NOT DETECTED [facility] Comment on above: Performed By: #### C VDTBH #### [facility] [address] [place] [address] Dr. Ramses Dumas S. maltophilia Not detected Normal NOT DETECTED [facility] Comment on above: Performed By: #### C VDTBH #### [facility] [address] [place] [address] Dr. Ramses Dumas Salmonella Not detected Normal NOT DETECTED [facility] Comment on above: Performed By: #### C VDTBH #### [facility] [address] [place] [address] Dr. Ramses Dumas Seratia marcescens Not detected Normal NOT DETECTED [facility] Comment on above: Performed By: #### C VDTBH #### [facility] [address] [place] [address] Dr. Ramses Dumas Site: unknown/not given Normal [facility] Comment on above: Performed By: #### C VDTBH #### [facility] [address] [place] [address] Dr. Ramses Dumas Staph. aureus Not detected Normal NOT DETECTED [facility] Comment on above: Performed By: #### C VDTBH #### [facility] [address] [place] [address] Dr. Ramses Dumas Staph. epidermidis Not detected Normal NOT DETECTED [facility] Comment on above: Performed By: #### C VDTBH #### [facility] [address] [place] [address] Dr. Ramses Dumas Stapphillip. lugdunensis Not detected Normal NOT DETECTED [facility] Comment on above: Performed By: #### C VDTBH #### [facility] [address] [place] [address] Dr. Ramses Dumas Staphylococcus Not detected Normal NOT DETECTED [facility] Comment on above: Performed By: #### C VDTBH #### [facility] [address] [place] [address] Dr. Ramses Dumas Strep. agalactiae Detected Critically abnormal NOT DETECTED [facility] Comment on above: Performed By: #### C VDTBH #### [facility] [address] [place] [address] Dr. Ramses Dumas Strep. pneumoniae Not detected Normal NOT DETECTED [facility] Comment on above: Performed By: #### C VDTBH #### [facility] [address] [place] [address] Dr. Ramses Dumas Strep. pyogenes Not detected Normal NOT DETECTED [facility] Comment on above: Performed By: #### C VDTBH #### [facility] [address] [place] [address] Dr. Ramses Dumas Streptococcus Detected Critically abnormal NOT DETECTED [facility] Comment on above: Performed By: #### C VDTBH #### [facility] [address] [place] [address] Dr. Ramses Dumas Efrain/B Resist. Gene Not detected Normal NOT DETECTED [facility] Comment on above: Performed By: #### C VDTBH #### [facility] [address] [place] [address] Dr. Ramses Dumas VIM Resistant Gene Not Applicable Normal NOT DETECTED [facility] Comment on above: Performed By: #### C VDTBH #### [facility] [address] [place] [address] Dr. Ramses Dumas CBC AUTO DIFFon 08-22-2022 BASO # 0.1 103/ul Normal 0.0-0.1 [facility] Comment on above: Performed By: #### U KJ 24 #### [facility] [address] [place] [address] Dr. Ramses Dumas Basophils/100 WBC (Bld) 0.7 % Normal 0.2-2.0 [facility] Comment on above: Performed By: #### U KJ 24 #### [facility] [address] [place] [address] Dr. Ramses Dumas EO # 0.1 103/ul Normal 0.0-0.7 [facility] Comment on above: Performed By: #### U KJ 24 #### [facility] [address] [place] [address] Dr. Ramses Dumas Eosinophils/100 WBC (Bld) 1.7 % Normal 0.9-7.0 [facility] Comment on above: Performed By: #### U KJ 24 #### [facility] [address] [place] [address] Dr. Ramses Dumas Erythrocyte distribution width (RBC) [Ratio] 13.2 % Normal 11.0-15.0 [facility] Comment on above: Performed By: #### U KJ 24 #### [facility] [address] [place] [address] Dr. Ramses Dumas Hematocrit (Bld) [Volume fraction] 39.8 % Normal 36.0-48.0 [facility] Comment on above: Performed By: #### U KJ 24 #### [facility] [address] [place] [address] Dr. Ramses Dumas Hemoglobin (Bld) [Mass/Vol] 12.9 g/dL Normal 12.0-16.0 [facility] Comment on above: Performed By: #### U KJ 24 #### [facility] [address] [place] [address] Dr. Ramses Dumas IG # 0.02 10e3/ul Normal 0.00-0.03 [facility] Comment on above: Performed By: #### U KJ 24 #### [facility] [address] [place] [address] Dr. Ramses Dumas IG % 0.2 % Normal 0.0-0.5 [facility] Comment on above: Performed By: #### U KJ 24 #### [facility] [address] [place] [address] Dr. Ramses Dumas LYMPH # 3.2 103/ul Normal 1.2-3.8 [facility] Comment on above: Performed By: #### U KJ 24 #### [facility] [address] [place] [address] Dr. Ramses Dumas Lymphocytes/100 WBC (Bld) 40.0 % Normal 20.5-60.0 [facility] Comment on above: Performed By: #### U KJ 24 #### [facility] [address] [place] [address] Dr. Ramses Dumas MANUAL DIFF REQ NO Normal [facility] Comment on above: Performed By: #### U KJ 24 #### [facility] [address] [place] [address] Dr. Ramses Dumas MCH (RBC) [Entitic mass] 26.6 pg Critically low 26.7-34.0 [facility] Comment on above: Performed By: #### U KJ 24 #### [facility] [address] [place] [address] Dr. Ramses Dumas MCHC (RBC) [Mass/Vol] 32.4 g/dL Normal 29.9-35.2 [facility] Comment on above: Performed By: #### U KJ 24 #### [facility] [address] [place] [address] Dr. Ramses Dumas MCV (RBC) [Entitic vol] 82.1 fL Normal 81.0-99.0 [facility] Comment on above: Performed By: #### U KJ 24 #### [facility] [address] [place] [address] Dr. Ramses Dumas MONO # 0.6 103/ul Normal 0.3-0.8 [facility] Comment on above: Performed By: #### U KJ 24 #### [facility] [address] [place] [address] Dr. Ramses Dumas Monocytes/100 WBC (Bld) 7.5 % Normal 1.7-12.0 [facility] Comment on above: Performed By: #### U KJ 24 #### [facility] [address] [place] [address] Dr. Ramses Dumas NEUT # 4.0 103/ul Normal 1.4-6.5 [facility] Comment on above: Performed By: #### U KJ 24 #### [facility] [address] [place] [address] Dr. Ramses Dumas Neutrophils/100 WBC (Bld) 49.9 % Normal 43.0-75.0 [facility] Comment on above: Performed By: #### U KJ 24 #### [facility] [address] [place] [address] Dr. Ramses Dumas Platelet mean volume (Bld) [Entitic vol] 9.3 fL Critically low 9.5-13.5 [facility] Comment on above: Performed By: #### U KJ 24 #### [facility] [address] [place] [address] Dr. Ramses Dumas PLT 354 103/ul Normal 150-450 [facility] Comment on above: Performed By: #### U KJ 24 #### [facility] [address] [place] [address] Dr. Ramses Dumas RBC 4.85 106/ul Normal 4.20-5.40 [facility] Comment on above: Performed By: #### U KJ 24 #### [facility] [address] [place] [address] Dr. Ramses Dumas WBC 8.1 103/ul Normal 4.0-11.0 [facility] Comment on above: Performed By: #### U KJ 24 #### [facility] [address] [address] [address] ABD/PELVIS WO CONon [...] KESHIA IRIZARRY Date: 2022-08-22 07:04 Normal [facility] Covid-19 PCR (CVDTB)on SARS-CoV-2 (COVID-19) RNA FRANCESCA+probe Ql (Unsp spec) Not detected Normal NOT DETECTED [facility] Comment on above: Result [...] for this test is supported by the [place] of Health and Human Service's declaration that [...] used). Performed By: #### C MP #### [facility] [address] [place] [address] Dr. Ramses Dumas ER URINE PROFILEon 2 Bilirubin Ql (U) Negative Normal NEGATIVE [facility] Comment on above: Performed By: #### U RCX #### [facility] [address] [place] [address] Dr. Ramses Dumas Clarity (U) CLEAR Normal CLEAR [facility] Comment on above: Performed By: #### U RCX #### [facility] [address] [place] [address] Dr. Ramses Dumas Color (U) LT. YELLOW Normal YELLOW [facility] Comment on above: Performed By: #### U RCX #### [facility] [address] [place] [address] Dr. Ramses DELEON A micrscopic examination will be performed if indicated. Normal [facility] Comment on above: Performed By: #### U RCX #### [facility] [address] [place] [address] Dr. Ramses Dumas Glucose Ql (U) Negative Normal NEGATIVE [facility] Comment on above: Performed By: #### U RCX #### [facility] [address] [place] [address] Dr. Ramses Dumas Hemoglobin Ql (U) SMALL Abnormal NEGATIVE [facility] Comment on above: Performed By: #### U RCX #### [facility] [address] [place] [address] Dr. Ramses Dumas Ketones Ql (U) Negative Normal NEGATIVE [facility] Comment on above: Performed By: #### U RCX #### [facility] [address] [place] [address] Dr. Ramses Dumas LEUKOCYTES SMALL Abnormal NEGATIVE [facility] Comment on above: Performed By: #### U RCX #### [facility] [address] [place] [address] Dr. Ramses Dumas Nitrite Ql (U) Negative Normal NEGATIVE [facility] Comment on above: Performed By: #### U RCX #### [facility] [address] [place] [address] Dr. Ramses Dumas pH (U) 7.0 [pH] Normal 5-9 [facility] Comment on above: Performed By: #### U RCX #### [facility] [address] [place] [address] Dr. Ramses Dumas Protein (U) [Mass/Vol] 30 mg/dL Abnormal NEGATIVE/ TRACE [facility] Comment on above: Performed By: #### U RCX #### [facility] [address] [place] [address] Dr. Ramses Dumas SPEC GRAVITY 1.020 Normal 1.005-<=1.02 5 [facility] Comment on above: Performed By: #### U RCX #### [facility] [address] [place] [address] Dr. Ramses Dumas UR MICRO IND INDICATED Normal [facility] Comment on above: Performed By: #### U RCX #### [facility] [address] [place] [address] Dr. Ramses Dumas Urobilinogen Qn (U) 0.2 {Lucero'U}/dL Normal 0.2 - 1. 0 [facility] Comment on above: Performed By: #### U RCX #### [facility] [address] [place] [address] Dr. Ramses Dumas LACTATE/LACTIC ACIDon 2021 Lactate [Moles/Vol] 2.3 mmol/L Critically high 0.4-1.9 [facility] Comment on above: Performed By: #### U RCX #### [facility] [address] [place] [address] Dr. Ramses Dumas URon 08-22-2022 , QUAL Negative Normal NEGATIVE [facility] Comment on above: Performed By: #### U RCX #### [facility] [address] [address] [address] Ramses Dumas PROF 14(COMP METB)on 022 Albumin [Mass/Vol] 3.5 g/dL Normal 3.4-5.0 [facility] Comment on above: Performed By: #### U RCX #### [facility] [address] [place] [address] Dr. Ramses Dumas Albumin/Globulin [Mass ratio] 0.9 {ratio} Normal [facility] Comment on above: Performed By: #### U RCX #### [facility] [address] [place] [address] Dr. Ramses Dumas ALP [Catalytic activity/Vol] 92 U/L Normal 46-116 [facility] Comment on above: Performed By: #### U RCX #### [facility] [address] [place] [address] Dr. Ramses Dumas ALT [Catalytic activity/Vol] 139 U/L Critically high 14-59 [facility] Comment on above: Performed By: #### U RCX #### [facility] [address] [place] [address] Dr. Ramses Dumas Anion gap [Moles/Vol] 10.2 mmol/L Normal [facility] Comment on above: Performed By: #### U RCX #### [facility] [address] [place] [address] Dr. Ramses Dumas AST [Catalytic activity/Vol] 112 U/L Critically high 15-37 [facility] Comment on above: Performed By: #### U RCX #### [facility] [address] [place] [address] Dr. Ramses Dumas Bilirubin [Mass/Vol] 0.2 mg/dL Normal 0.2-1.0 [facility] Comment on above: Performed By: #### U RCX #### [facility] [address] [place] [address] Dr. Ramses Dumas Calcium [Mass/Vol] 8.8 mg/dL Normal 8.5-10.1 [facility] Comment on above: Performed By: #### U RCX #### [facility] [address] [address] [address] Ramses Dumas Chloride [Moles/Vol] 105 mmol/L Normal 98-107 [facility] Comment on above: Performed By: #### U RCX #### [facility] [address] [address] [address] Ramses Dumas CO2 [Moles/Vol] 26.3 mmol/L Normal 21.0-32.0 [facility] Comment on above: Performed By: #### U RCX #### [facility] [address] [place] [address] Dr. Ramses Dumas Creatinine [Mass/Vol] 0.95 mg/dL Normal 0.55-1.02 [facility] Comment on above: Performed By: #### U RCX #### [facility] [address] [place] [address] Dr. Ramses Dumas EGFR-AF CANADIAN >60 Normal >=60 [facility] Comment on above: Performed By: #### U RCX #### [facility] [address] [place] [address] Dr. Ramses Dumas EGFR-NON AF CANADIAN >60 Normal >=60 [facility] Comment on above: Performed By: #### U RCX #### [facility] [address] [place] [address] Dr. Ramses Dumas Globulin (S) [Mass/Vol] 3.9 g/dL Normal [facility] Comment on above: Performed By: #### U RCX #### [facility] [address] [place] [address] Dr. Ramses Dumas Glucose [Mass/Vol] 137 mg/dL Critically high 74-106 [facility] Comment on above: Performed By: #### U RCX #### [facility] [address] [place] [address] Dr. Ramses Dumas Potassium [Moles/Vol] 3.5 mmol/L Normal 3.5-5.1 [facility] Comment on above: Performed By: #### U RCX #### [facility] [address] [place] [address] Dr. Ramses Dumas Protein [Mass/Vol] 7.4 g/dL Normal 6.4-8.2 [facility] Comment on above: Performed By: #### U RCX #### [facility] [address] [place] [address] Dr. Ramses Dumas Sodium [Moles/Vol] 138 mmol/L Normal 136-145 [facility] Comment on above: Performed By: #### U RCX #### [facility] [address] [place] [address] Dr. Ramses Dumas Urea nitrogen [Mass/Vol] 11.0 mg/dL Normal 7.0-18.0 [facility] Comment on above: Performed By: #### U RCX #### [facility] [address] [place] [address] Dr. Ramses Dumas Urea nitrogen/Creatinine [Mass ratio] 11.6 mg/mg Normal [facility] Comment on above: Performed By: #### U RCX #### [facility] [address] [place] [address] Dr. Ramses Dumas URINE MICROSCOPIC ONLYon BACTERIA LARGE Abnormal NONE SEEN [facility] Comment on above: Performed By: #### U RCX #### [facility] [address] [place] [address] Dr. Ramses Dumas Bacteria identified Cx Nom (U) CX ALREADY ORDERED Normal [facility] Comment on above: Performed By: #### U RCX #### [facility] [address] [place] [address] Dr. Ramses Dumas CAST NONE SEEN Normal NONE SEEN [facility] Comment on above: Performed By: #### U RCX #### [facility] [address] [place] [address] Dr. Ramses Dumas Crystals LM Nom (Urine sed) NONE SEEN Normal NONE SEEN [facility] Comment on above: Performed By: #### U RCX #### [facility] [address] [place] [address] Dr. Ramses Dumas Epithelial cells LM Ql (Urine sed) MANY Abnormal NONE SEEN /RARE [facility] Comment on above: Performed By: #### U RCX #### [facility] [address] [place] [address] Dr. Ramses Dumas MUCOUS NONE SEEN Normal NONE SEEN [facility] Comment on above: Performed By: #### U RCX #### [facility] [address] [place] [address] Dr. Ramses Dumas RBC 5-10 Abnormal 0-2 [facility] Comment on above: Performed By: #### U RCX #### [facility] [address] [place] [address] Dr. Ramses Dumas WBC 50-75 Abnormal NONE SEEN [facility] Comment on above: Performed By: #### U RCX #### [facility] [address] [place] [address] Dr. Ramses Dumas CULTURE URINEon 08-15-2022 CULTURE [...] F Tetracycline >=16 R F Normal [facility] Comment on above: Performed By: #### U RCX #### [facility] [address] [place] [address] Dr. Ramses Dumas ACETAMINOPHENon 08-13-2022 Acetaminophen [Mass/Vol] ug/mL Critically low 10.0-30.0 [facility] Comment on above: Performed By: #### U RCX #### [facility] [address] [place] [address] Dr. Ramses Dumas CBC AUTO DIFFon 08-13-2022 BASO # 0.1 103/ul Normal 0.0-0.1 [facility] Comment on above: Performed By: #### C VDTBH #### [facility] [address] [place] [address] Dr. Ramses Dumas Basophils/100 WBC (Bld) 0.8 % Normal 0.2-2.0 [facility] Comment on above: Performed By: #### C VDTBH #### [facility] [address] [place] [address] Dr. Ramses Dumas EO # 0.1 103/ul Normal 0.0-0.7 [facility] Comment on above: Performed By: #### C VDTBH #### [facility] [address] [place] [address] Dr. Ramses Dumas Eosinophils/100 WBC (Bld) 1.6 % Normal 0.9-7.0 [facility] Comment on above: Performed By: #### C VDTBH #### [facility] [address] [place] [address] Dr. Ramses Dumas Erythrocyte distribution width (RBC) [Ratio] 13.3 % Normal 11.0-15.0 [facility] Comment on above: Performed By: #### C VDTBH #### [facility] [address] [place] [address] Dr. Ramses Dumas Hematocrit (Bld) [Volume fraction] 40.6 % Normal 36.0-48.0 [facility] Comment on above: Performed By: #### C VDTBH #### [facility] [address] [place] [address] Dr. Ramses Dumas Hemoglobin (Bld) [Mass/Vol] 13.2 g/dL Normal 12.0-16.0 [facility] Comment on above: Performed By: #### C VDTBH #### [facility] [address] [place] [address] Dr. Ramses Dumas IG # 0.01 10e3/ul Normal 0.00-0.03 [facility] Comment on above: Performed By: #### C VDTBH #### [facility] [address] [place] [address] Dr. Ramses Dumas IG % 0.2 % Normal 0.0-0.5 [facility] Comment on above: Performed By: #### C VDTBH #### [facility] [address] [place] [address] Dr. Ramses Dumas LYMPH # 2.4 103/ul Normal 1.2-3.8 [facility] Comment on above: Performed By: #### C VDTBH #### [facility] [address] [place] [address] Dr. Ramses Dumas Lymphocytes/100 WBC (Bld) 37.7 % Normal 20.5-60.0 [facility] Comment on above: Performed By: #### C VDTBH #### [facility] [address] [place] [address] Dr. Ramses Dumas MANUAL DIFF REQ NO Normal [facility] Comment on above: Performed By: #### C VDTBH #### [facility] [address] [place] [address] Dr. Ramses Dumas MCH (RBC) [Entitic mass] 26.7 pg Normal 26.7-34.0 [facility] Comment on above: Performed By: #### C VDTBH #### [facility] [address] [place] [address] Dr. Ramses Dumas MCHC (RBC) [Mass/Vol] 32.5 g/dL Normal 29.9-35.2 [facility] Comment on above: Performed By: #### C VDTBH #### [facility] [address] [place] [address] Dr. Ramses Dumas MCV (RBC) [Entitic vol] 82.0 fL Normal 81.0-99.0 [facility] Comment on above: Performed By: #### C VDTBH #### [facility] [address] [place] [address] Dr. Ramses Dumas MONO # 0.6 103/ul Normal 0.3-0.8 [facility] Comment on above: Performed By: #### C VDTBH #### [facility] [address] [place] [address] Dr. Ramses Dumas Monocytes/100 WBC (Bld) 8.6 % Normal 1.7-12.0 [facility] Comment on above: Performed By: #### C VDTBH #### [facility] [address] [place] [address] Dr. Ramses Dumas NEUT # 3.3 103/ul Normal 1.4-6.5 [facility] Comment on above: Performed By: #### C VDTBH #### [facility] [address] [place] [address] Dr. Ramses Dumas Neutrophils/100 WBC (Bld) 51.1 % Normal 43.0-75.0 [facility] Comment on above: Performed By: #### C VDTBH #### [facility] [address] [place] [address] Dr. Ramses Dumas Platelet mean volume (Bld) [Entitic vol] 8.7 fL Critically low 9.5-13.5 [facility] Comment on above: Performed By: #### C VDTBH #### [facility] [address] [place] [address] Dr. Ramses Dumas PLT 409 103/ul Normal 150-450 [facility] Comment on above: Performed By: #### C VDTBH #### [facility] [address] [place] [address] Dr. Ramses Dumas RBC 4.95 106/ul Normal 4.20-5.40 [facility] Comment on above: Performed By: #### C VDTBH #### [facility] [address] [place] [address] Dr. Ramses Dumas WBC 6.4 103/ul Normal 4.0-11.0 [facility] Comment on above: Performed By: #### C VDTBH #### [facility] [address] [place] [address] Dr. Ramses Dumas Covid-19 PCR ([facility])on 07-20 SARS-CoV-2 (COVID-19) RNA FRANCESCA+probe Ql (Unsp spec) Not detected Normal NOT DETECTED [facility] Comment on above: Result [...] for this test is supported by the [place] of Health and Human Service's declaration that [...] used). Performed By: #### C VDTB #### [facility] [address] [place] [address] Dr. Ramses Dumas DRUG SCREEN RAPID (URINE)on 08-13-2022 AMP Negative Normal NEGATIVE [facility] Comment on above: Performed By: #### C BC #### [facility] [address] [place] [address] Dr. Ramses Dumas BAR Negative Normal NEGATIVE [facility] Comment on above: Performed By: #### C BC #### [facility] [address] [place] [address] Dr. Ramses Dumas BUP Negative Normal NEGATIVE [facility] Comment on above: Performed By: #### C BC #### [facility] [address] [place] [address] Dr. Ramses Dumas BZO Negative Normal NEGATIVE [facility] Comment on above: Performed By: #### C BC #### [facility] [address] [place] [address] Dr. Ramses Dumas ODILIA Negative Normal NEGATIVE [facility] Comment on above: Performed By: #### C BC #### [facility] [address] [place] [address] Dr. Ramses Dumas CUT-OFFS SEE BELOW Normal [facility] Comment [...] ng/mL Performed By: #### C BC #### [facility] [address] [place] [address] Dr. Ramses Dumas DRUG CUT HEADER DRUG CLASS TEST SYSTEM CUT-OFF CONCENTRATIONS ARE FOLLOWS: Normal [facility] Comment on above: Performed By: #### C BC #### [facility] [address] [place] [address] Dr. Ramses Dumas mAMP Negative Normal NEGATIVE [facility] Comment on above: Performed By: #### C BC #### [facility] [address] [place] [address] Dr. Ramses Dumas MTD Negative Normal NEGATIVE [facility] Comment on above: Performed By: #### C BC #### [facility] [address] [place] [address] Dr. Ramses Dumas OPI Negative Normal NEGATIVE [facility] Comment on above: Performed By: #### C BC #### [facility] [address] [place] [address] Dr. Ramses Dumas OXY Negative Normal NEGATIVE [facility] Comment on above: Performed By: #### C BC #### [facility] [address] [place] [address] Dr. Ramses Dumas PCP Negative Normal NEGATIVE [facility] Comment on above: Performed By: #### C BC #### [facility] [address] [place] [address] Dr. Ramses Dumas PPX Negative Normal NEGATIVE [facility] Comment on above: Performed By: #### C BC #### [facility] [address] [place] [address] Dr. Ramses Dumas TCA Negative Normal NEGATIVE [facility] Comment on above: Performed By: #### C BC #### [facility] [address] [address] [address] Ramses Dumas THC Negative Normal NEGATIVE [facility] Comment on above: Performed By: #### C BC #### [facility] [address] [place] [address] Dr. Ramses Dumas ER URINE PROFILEon 2 Bilirubin Ql (U) Negative Normal NEGATIVE [facility] Comment on above: Performed By: #### C BC #### [facility] [address] [address] [address] Ramses Dumas Clarity (U) CLEAR Normal CLEAR [facility] Comment on above: Performed By: #### C BC #### [facility] [address] [place] [address] Dr. Ramses Dumas Color (U) LT. YELLOW Normal YELLOW [facility] Comment on above: Performed By: #### C BC #### [facility] [address] [place] [address] Dr. Ramses Dumas ERUCARLOS ENRIQUE A micrscopic examination will be performed if indicated. Normal [facility] Comment on above: Performed By: #### C BC #### [facility] [address] [place] [address] Dr. Ramses Dumas Glucose Ql (U) Negative Normal NEGATIVE [facility] Comment on above: Performed By: #### C BC #### [facility] [address] [address] [address] Ramses Dumas Hemoglobin Ql (U) LARGE Abnormal NEGATIVE [facility] Comment on above: Performed By: #### C BC #### [facility] [address] [address] [address] Ramses Dumas Ketones Ql (U) Negative Normal NEGATIVE [facility] Comment on above: Performed By: #### C BC #### [facility] [address] [place] [address] Dr. Ramses Dumas LEUKOCYTES LARGE Abnormal NEGATIVE [facility] Comment on above: Performed By: #### C BC #### [facility] [address] [place] [address] Dr. Ramses Dumas Nitrite Ql (U) Positive Abnormal NEGATIVE [facility] Comment on above: Performed By: #### C BC #### [facility] [address] [place] [address] Dr. Ramses Dumas pH (U) 6.0 [pH] Normal 5-9 [facility] Comment on above: Performed By: #### C BC #### [facility] [address] [place] [address] Dr. Ramses Dumas Protein (U) [Mass/Vol] 30 mg/dL Abnormal NEGATIVE/ TRACE [facility] Comment on above: Performed By: #### C BC #### [facility] [address] [place] [address] Dr. Ramses Dumas SPEC GRAVITY >=1.030 Abnormal 1.005-<=1.02 5 [facility] Comment on above: Performed By: #### C BC #### [facility] [address] [place] [address] Dr. Ramses Dumas UR MICRO IND INDICATED Normal [facility] Comment on above: Performed By: #### C BC #### [facility] [address] [place] [address] Dr. Ramses Dumas Urobilinogen Qn (U) 0.2 {Lucero'U}/dL Normal 0.2 - 1. 0 [facility] Comment on above: Performed By: #### C BC #### [facility] [address] [place] [address] Dr. Ramses Dumas ETHANOL (BLD ALC)on 08-13-20 ALC NOTE NOTE: 80 mg/dl is th e legal limit for a blood alcohol level Normal [facility] Comment on above: Performed By: #### B LDCX2 #### [facility] [address] [place] [address] Dr. Ramses Dumas Ethanol [Mass/Vol] mg/dL Normal [facility] Comment on above: Performed By: #### B LDCX2 #### [facility] [address] [place] [address] Dr. Ramses Dumas URon 08-13-2022 , QUAL Negative Normal NEGATIVE [facility] Comment on above: Performed By: #### C BC #### [facility] [address] [place] [address] Dr. Ramses Dumas PROF 14(COMP METB)on 022 Albumin [Mass/Vol] 3.8 g/dL Normal 3.4-5.0 [facility] Comment on above: Performed By: #### U RCX #### [facility] [address] [place] [address] Dr. Ramses Dumas Albumin/Globulin [Mass ratio] 0.9 {ratio} Normal [facility] Comment on above: Performed By: #### U RCX #### [facility] [address] [place] [address] Dr. Ramses Dumas ALP [Catalytic activity/Vol] 82 U/L Normal 46-116 [facility] Comment on above: Performed By: #### U RCX #### [facility] [address] [place] [address] Dr. Ramses Dumas ALT [Catalytic activity/Vol] 41 U/L Normal 14-59 [facility] Comment on above: Performed By: #### U RCX #### [facility] [address] [place] [address] Dr. Ramses Dumas Anion gap [Moles/Vol] 9.3 mmol/L Normal [facility] Comment on above: Performed By: #### U RCX #### [facility] [address] [place] [address] Dr. Ramses Dumas AST [Catalytic activity/Vol] 21 U/L Normal 15-37 [facility] Comment on above: Performed By: #### U RCX #### [facility] [address] [place] [address] Dr. Ramses Dumas Bilirubin [Mass/Vol] 0.3 mg/dL Normal 0.2-1.0 [facility] Comment on above: Performed By: #### U RCX #### [facility] [address] [place] [address] Dr. Ramses Dumas Calcium [Mass/Vol] 8.9 mg/dL Normal 8.5-10.1 [facility] Comment on above: Performed By: #### U RCX #### [facility] [address] [place] [address] Dr. Ramses Dumas Chloride [Moles/Vol] 105 mmol/L Normal 98-107 [facility] Comment on above: Performed By: #### U RCX #### [facility] [address] [address] [address] Ramses Dumas CO2 [Moles/Vol] 28.5 mmol/L Normal 21.0-32.0 [facility] Comment on above: Performed By: #### U RCX #### [facility] [address] [place] [address] Dr. Ramses Dumas Creatinine [Mass/Vol] 0.81 mg/dL Normal 0.55-1.02 [facility] Comment on above: Performed By: #### U RCX #### [facility] [address] [place] [address] Dr. Ramses Dumas EGFR-AF CANADIAN >60 Normal >=60 [facility] Comment on above: Performed By: #### U RCX #### [facility] [address] [place] [address] Dr. Ramses Dumas EGFR-NON AF CANADIAN >60 Normal >=60 [facility] Comment on above: Performed By: #### U RCX #### [facility] [address] [place] [address] Dr. Ramses Dumas Globulin (S) [Mass/Vol] 4.1 g/dL Normal [facility] Comment on above: Performed By: #### U RCX #### [facility] [address] [address] [address] Ramses Dumas Glucose [Mass/Vol] 100 mg/dL Normal 74-106 [facility] Comment on above: Performed By: #### U RCX #### [facility] [address] [place] [address] Dr. Ramses Dumas Potassium [Moles/Vol] 3.8 mmol/L Normal 3.5-5.1 [facility] Comment on above: Performed By: #### U RCX #### [facility] [address] [address] [address] Ramses Dumas Protein [Mass/Vol] 7.9 g/dL Normal 6.4-8.2 [facility] Comment on above: Performed By: #### U RCX #### [facility] [address] [address] [address] Ramses Dumas Sodium [Moles/Vol] 139 mmol/L Normal 136-145 [facility] Comment on above: Performed By: #### U RCX #### [facility] [address] [address] [address] Ramses Dumas Urea nitrogen [Mass/Vol] 10.0 mg/dL Normal 7.0-18.0 [facility] Comment on above: Performed By: #### U RCX #### [facility] [address] [address] [address] Ramses Dumas Urea nitrogen/Creatinine [Mass ratio] 12.3 mg/mg Normal [facility] Comment on above: Performed By: #### U RCX #### [facility] [address] [address] [address] Ramses Dumas SALICYLATEon 08-13-2022 SALICYLATE <2.8 Normal <=19.9 [facility] Comment on above: Performed By: #### U RCX #### [facility] [address] [address] [address] Ramses Dumas URINE MICROSCOPIC ONLYon BACTERIA LARGE Abnormal NONE SEEN [facility] Comment on above: Performed By: #### C BC #### [facility] [address] [address] [address] Ramses Dumas Bacteria identified Cx Nom (U) INDICATED Normal [facility] Comment on above: Performed By: #### C BC #### [facility] [address] [address] [address] Ramses Dumas CA OX CRYSTALS RARE Normal [facility] Comment on above: Performed By: #### C BC #### [facility] [address] [place] [address] Dr. Ramses Dumas CAST NONE SEEN Normal NONE SEEN [facility] Comment on above: Performed By: #### C BC #### [facility] [address] [place] [address] Dr. Ramses Dumas Crystals LM Nom (Urine sed) SEEN Abnormal NONE SEEN [facility] Comment on above: Performed By: #### C BC #### [facility] [address] [place] [address] Dr. Ramses Dumas Epithelial cells LM Ql (Urine sed) MODERATE Abnormal NONE SEEN /RARE [facility] Comment on above: Performed By: #### C BC #### [facility] [address] [place] [address] Dr. Ramses Dumas MUCOUS NONE SEEN Normal NONE SEEN [facility] Comment on above: Performed By: #### C BC #### [facility] [address] [place] [address] Dr. Ramses Dumas RBC 10-20 Abnormal 0-2 [facility] Comment on above: Performed By: #### C BC #### [facility] [address] [place] [address] Dr. Ramses Dumas WBC 20-50 Abnormal NONE SEEN [facility] Comment on above: Performed By: #### C BC #### [facility] [address] [place] [address] Dr. Ramses Dumas Pap IG,rfx Aptima HPV all pt hon 08-09-2022 . . Normal [facility] Comment on above: Performed By: #### C MP #### [facility] [address] [place] [address] Dr. Ramses Dumas DIAGNOSIS: Comment Abnormal [facility] Comment on above: Result Comment: EPIT HELIAL CELL ABNORMALITY. LOW GRADE SQUAMOUS INTRAEPITHELIAL LESION (LSIL). Performed By: #### C MP #### [facility] [address] [place] [address] Dr. Ramses Dumas Electronically signed by: Comment Normal [facility] Comment on above: Result Comment: Arnaud Joseph MD, Pathologist Performed By: #### C MP #### [facility] [address] [address] [address] Ramses Dumas HPV Aptima Negative Normal Negative [facility] Comment on above: Result Comment: This nucleic acid amplification test detects fourteen high-risk HPV types (16,18,31,33,35,39,45,51,52,56,58,59,66,68) without differentiation. Performed By: #### C MP #### [facility] [address] [address] [address] Ramses Dumas Methodology: Comment Normal [facility] Comment on above: Result Comment: This liquid based ThinPrep(R) pap test was screened with the use of an image guided system. Performed By: #### C MP #### [facility] [address] [place] [address] Dr. Ramses Dumas Note: Comment Normal [facility] [...] . Performed By: #### C MP #### [facility] [address] [place] [address] Dr. Ramses Dumas Pathologist Provided ICD10 Comment Normal [facility] Comment on above: Result Comment: [id number] Performed By: #### C MP #### [facility] [address] [place] [address] Dr. Ramses Dumas Performed by: Comment Normal [facility] Comment on above: Result Comment: Gail Ruano, Core Drier (ASCP) Performed By: #### C MP #### [facility] [address] [place], [place] [id number] Dr. Ramses Dumas Reflex Criteria: Comment Normal [facility] Comment on above: Result Comment: See below for HPV testing results. . Performed By: #### C MP #### [facility] [address] [place], [place] [id number] Dr. Ramses Dumas Specimen adequacy: Comment Normal [facility] Comment on above: Result Comment: Sati sfactory for evaluation. Endocervical and/or squamous metaplastic cells (endocervical component) are present. Performed By: #### C MP #### [facility] [address] [place] [address] Dr. Ramses Dumas Vital Signs Date Time Vital Sign Value Performing Clinician Facility 04-05-2025 13:06-0400 Body mass index (BMI) [Ratio] 29.86 kg/m2 [facility] [employer] Work Phone: [facility] 04-05-2025 13:06-0400 Body weight 83.92 kg [facility] [employer] Work Phone: [facility] 04-05-2025 13:06-0400 Diastolic blood pressure 72 mm[Hg] [facility] Work Phone: [facility] 04-05-2025 13:06-0400 Systolic blood pressure 124 mm[Hg] [facility] Work Phone: [facility] 01-29-2025 09:23-0400 Body temperature 98.1 [degF] Luis Felipe Delacruz [facility] [employer] [facility] [employer] 01-29-2025 09:23-0400 Diastolic blood pressure 86 mm[Hg] Luis Felipe Delacruz MD [facility] [employer] [facility] 01-29-2025 09:23-0400 Heart rate 81 /min Luis Felipe Delacruz MD [facility] Phone[facility] [employer] [employer] [facility] 01-29-2025 09:23-0400 Respiratory rate 18 /min Luis Felipe Delacruz MD [facility] [employer] [employer] [facility] [employer] 01-29-2025 09:23-0400 SaO2% (BldA) [Mass fraction] 100 % Luis Felipe Delacruz MD [facility] [employer] [employer] [facility] 01-29-2025 09:23-0400 Systolic blood pressure 129 mm[Hg] Luis Felipe Delacruz MD [facility] Phone[facility] [employer] [employer] [facility] [employer] 01-29-2025 06:00-0400 Body mass index (BMI) [Ratio] 29.01 kg/m2 Luis Felipe Delacruz MD Work Phone: [facility] [employer] 01-29-2025 06:00-0400 Body weight 81.5 kg Luis Felipe Delacruz MD Work Phone: [facility] [employer] 01-27-2025 10:01-0400 Body height 167.6 cm Luis Felipe Delacruz MD Work Phone: [facility] [employer] 01-22-2025 11:49-0400 Body temperature 97.7 [degF] Luis Felipe Delacruz MD Work Phone: [facility] [employer] 01-22-2025 11:49-0400 Diastolic blood pressure 75 mm[Hg] Luis Felipe Delacruz MD Work Phone: [facility] [employer] 01-22-2025 11:49-0400 Heart rate 54 /min Luis Felipe Delacruz MD Work Phone: [facility] [employer] 01-22-2025 11:49-0400 Respiratory rate 15 /min Luis Felipe Delacruz MD Work Phone: [facility] [employer] 01-22-2025 11:49-0400 SaO2% (BldA) [Mass fraction] 98 % Luis Felipe Delacruz MD Work Phone: [facility] [employer] 01-22-2025 11:49-0400 Systolic blood pressure 108 mm[Hg] Luis Felipe Delacruz MD Work Phone: [facility] [employer] 01-21-2025 23:45-0400 Body height 167.6 cm Luis Felipe Delacruz MD Work Phone: [facility] [employer] 01-21-2025 23:45-0400 Body mass index (BMI) [Ratio] 28.23 kg/m2 Luis Felipe Delacruz MD Work Phone: [facility] [employer] 01-21-2025 23:45-0400 Body weight 79.3 kg Luis Felipe Delacruz MD Work Phone: [facility] [employer] 04-10-2024 07:30-0400 Body temperature 98 [degF] MD Domingo Snyder Work Phone: [facility] 04-10-2024 07:30-0400 Diastolic blood pressure 73 mm[Hg] MD Domingo Snyder Work Phone: [facility] 04-10-2024 07:30-0400 Heart rate 75 /min MD Domingo Snyder Work Phone: [facility] 04-10-2024 07:30-0400 Respiratory rate 16 /min MD Domingo Snyder Work Phone: [facility] 04-10-2024 07:30-0400 SaO2% (BldA) [Mass fraction] 100 % MD Domingo Snyder Work Phone: [facility] 04-10-2024 07:30-0400 Systolic blood pressure 123 mm[Hg] MD Domingo Snyder Work Phone: [facility] 04-08-2024 22:44-0400 Body height 167.64 cm MD Domingo Snyder Work Phone: [facility] 04-08-2024 22:44-0400 Body weight 86.58 kg MD Domingo Snyder Work Phone: [facility] 03-20-2023 10:30-0400 Blood Pressure Location Nona ARYGOZA [facility] 03-20-2023 10:30-0400 Diastolic blood pressure 73 mm[Hg] Nona RAYGOZA [facility] 03-20-2023 10:30-0400 Heart rate 80 /min Nona RAYGOZA [facility] 03-20-2023 10:30-0400 Respiratory rate 16 /min Nona RAYGOZA [facility] [facility] 03-20-2023 10:30-0400 Systolic blood pressure 128 mm[Hg] Nona RAYGOZA [facility] Encounters Encounter Date Encounter Type Care Provider Facility Start: 05-29-2025 End: 05-29-2025 Postop follow up visit related to original px Patrick Leiva MD Work Phone: [facility] Comment on above: Encounter for remova l of sutures (Primary Dx) Start: 05-29-2025 End: 05-29-2025 Bamboo steven Leiva MD Work Phone: [facility] Start: 05-29-2025 End: 05-29-2025 Bamboo steven Leiva MD Work Phone: [facility] Start: 05-15-2025 End: 05-15-2025 Patient encounter procedure Patrick Leiva MD Work Phone: [facility] Comment on above: Neoplasm of unspecif ied behavior of bone, soft tissue, and skin (Primary Dx) Start: 05-15-2025 End: 05-15-2025 ambulatory PATRICK LEIVA Not Available Start: 05-05-2025 End: 05-05-2025 ambulatory Vj Fraire [facility] Work Phone: Start: 05-05-2025 End: 05-05-2025 Departed Referred Vj Fraire DO -LAB [facility] Start: 04-24-2025 End: 04-24-2025 Bamboo steven Leiva MD Work Phone: [facility] Start: 04-24-2025 End: 04-24-2025 Bamboo steven Leiva MD Work Phone: [facility] Start: 04-24-2025 End: 04-24-2025 Postop follow up visit related to original px Patrick Leiva MD Work Phone: [facility] Comment on above: Encounter for remova l of sutures (Primary Dx) Start: 04-24-2025 End: 04-24-2025 ambulatory PATRICK LEIVA Not Available Start: 04-10-2025 End: 04-10-2025 Bamboo flowsheet Patrick Leiva MD Work Phone: [facility] Start: 04-10-2025 End: 04-10-2025 Bamboo flowsheet Patrick Leiva MD Work Phone: [facility] Start: 04-10-2025 End: 04-10-2025 Office outpatient new 20 minutes Patrick Leiva MD Work Phone: [facility] Comment on above: Hordeolum externum o f right upper eyelid (Primary Dx); Neoplasm of unspecified behavior of bone, soft tissue, and skin Start: 04-10-2025 End: 04-10-2025 ambulatory PATRICK LEIVA Not Available Start: 04-05-2025 End: 04-05-2025 Bamboo flowsheet Jefferson Bernie DO Work Phone: [facility] Start: 04-05-2025 End: 04-11-2025 Bamboo flowsheet Jefferson Bernie DO Work Phone: [facility] Start: 04-05-2025 End: 04-11-2025 Clinisync Result Encounter Jefferson Bernie DO Work Phone: [facility] Unsolicited Start: 04-05-2025 End: 04-05-2025 Patient encounter procedure Jefferson Bernie DO Work Phone: [facility] Start: 04-05-2025 End: 04-05-2025 Periodic preventive med est patient 18-39 yrs Jefferson Bernie DO Work Phone: [facility] Comment on above: Well woman exam with routine gynecological exam; H/O: hysterectomy; Night sweats Start: 04-05-2025 End: 04-05-2025 ambulatory JEFFERSON BERNIE Not Available Start: 03-16-2025 End: 03-16-2025 ambulatory Adonis Guerra Facility:[facility] Start: 01-26-2025 End: 01-29-2025 Evaluation and management of inpatient Luis Felipe Delacruz MD Work Phone: [facility] Renal//Med Surg Comment on above: Bilateral ureteral c alculi; Acute postoperative pain Start: 01-26-2025 Emergency department patient visit DOMINGO RICHYane Facility:[facility] Start: 01-21-2025 End: 01-22-2025 Evaluation and management of inpatient Luis Felipe Delacruz MD Work Phone: [facility] 3C MED SURG Comment on above: Acute postoperative pain (Primary Dx); Renal calculus, left Start: 01-21-2025 End: 01-21-2025 ambulatory Domingo Snyder MD Work Phone: [facility] Work Phone: Start: 01-21-2025 End: 01-21-2025 Departed Referred Domingo Snyder MD Work Phone: [facility] Start: 01-17-2025 End: 01-19-2025 ambulatory DOMINGO SNYDER [facility] Start: 01-17-2025 End: 01-19-2025 Subsequent hospital visit by physician Octavio Shi Rn [facility] Special Procedures Comment on above: Arrived VUR (vesicoureteric reflux) Start: 01-05-2025 End: 01-07-2025 [facility] Start: 12-02-2024 End: 12-02-2024 ambulatory Domingo Snyder MD Work Phone: [facility] Work Phone: Start: 12-02-2024 End: 12-02-2024 Departed Referred Domingo Snyder MD Work Phone: [facility] Start: 06-16-2024 End: 10-03-2024 ambulatory Aragon Start: 04-09-2024 Non-patient / Non-visit MD Vicente Snyder Work Phone: [facility] Work Phone: Start: 04-08-2024 End: 04-10-2024 Evaluation and management of inpatient MD Domingo Snyder Work Phone: [facility] Work Phone: Start: 12-04-2023 End: 12-05-2023 ambulatory Nona RAYGOZA Facility:[facility] Start: 12-04-2023 End: 12-04-2023 Patient encounter procedure Nona RAYGOZA [facility] Start: 04-10-2023 End: 04-10-2023 Patient encounter status Jefferson Gibbs DO Work Phone: [facility] Start: 04-09-2023 End: 04-10-2023 ambulatory Nona RAYGOZA Facility:CD:[id number] Start: 03-20-2023 End: 03-21-2023 ambulatory Nona RAYGOZA Facility:[facility] [place] Start: 03-20-2023 End: 03-20-2023 Patient encounter procedure Nona RAYGOZA [facility] Start: 02-16-2023 End: 02-16-[address] DOMINGO SNYDER . Facility:[facility] Start: 02-02-2023 End: 02-02-[address] DOMINGO SNYDER . Facility:[facility] Start: 12-26-2022 End: 12-27-2022 ambulatory Nona RAYGOZA Facility:[facility] Start: 12-26-2022 End: 12-26-2022 Patient encounter procedure Nona RAYGOZA [facility] Start: 12-16-2022 End: 12-17-[address] NONA RAYGOZA . Facility:[facility] Start: 12-15-2022 End: 12-16-[address] NONA RAYGOZA . Facility:[facility] Start: 11-27-[address] DOMINGO SNYDER . Facili ty:[facility]1 Start: 11-07-2022 End: 11-07-[address] DOMINGO SNYDER . Facility:[facility] Start: 11-04-2022 Encounter for preprocedural cardiovascular examination DR JEFFERSON GIBBS . [facility] Start: 11-04-2022 Encounter for preprocedural laboratory examination DR JEFFERSON GIBBS . [facility] Start: 11-03-2022 End: 11-04-2022 Encounter for preprocedural cardiovascular examination DR DOMINGO SNYDER . Facility:[facility] Start: 11-03-2022 End: 11-04-[address] DOMINGO SNYDER . Facility:[facility] Start: 09-20-2022 Encounter for preprocedural laboratory examination DR NONA RAYGOZA . [facility] Start: 09-18-2022 End: 09-18-[address] NONA RAYGOZA . Facility:[facility] Start: 09-16-2022 End: 09-17-[address] NONA RAYGOZA . Facility:[facility] Start: 09-16-2022 End: 09-17-2022 Encounter for preprocedural laboratory examination DR NONA RAYGOZA . Facility:[facility] Start: 09-05-2022 End: 09-05-2022 ambulatory ORA BOND . 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 Facility:[facility] Start: 08-13-2022 End: 08-13-2022 ambulatory ORA BOND . Facility:[facility] Start: 07-31-2022 Encounter for cervic al smear to confirm findings of recent normal smear following initial abnormal smear DR JEFFERSON GIBBS . [facility] Start: 07-30-2022 End: 07-30-[address] DOMINGO SNYDER . Facility:[facility] Start: 07-30-2022 End: 07-30-2022 Encounter for cervical smear to confirm findings of recent normal smear following initial abnormal smear DR DOMINGO SNYDER . Facility:[facility] Start: 07-02-2022 End: 07-03-[address] DOMINGO SNYDER . Facility: Procedures Date Procedure Procedure Detail Performing Clinician Start: 05-15-2025 SKIN EXCISION Patrick luis MD Work Phone: Start: 05-15-2025 SKIN REPAIR Patrick garcía MD Work Phone: Start: 04-10-2025 End: 04-10-2025 SKIN / NAIL BIOPSY Patrick Leiva MD Work Phone: Start: 04-05-2025 IGP,APTIMA HPV,AGE GDLN Jefferson Bernie DO Work Phone: Start: 01-27-2025 Fluoroscopy during operation Edwina Espino MD Work Phone: Start: 01-27-2025 Culture bacterial qu anttative colony count urine Edwina Espino MD Work Phone: Start: 01-27-2025 CULTURE, BLOOD 1 [facility] sarahy Arora DO Work Phone: Start: 01-27-2025 CULTURE, BLOOD 1 [facility] sarahy Hemphill DO Work Phone: Start: 01-27-2025 Basic metabolic pane l calcium total Kyung Miester 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 - [employer]ING [employer]ENT Work Phone: Start: 01-26-2025 Basic metabolic pane [...] Nona RAYGOZA H/O: hysterectomy H/O: hysterectomy Jefferson Bernie DO Work Phone: Plan of Treatment Date Care Activity Detail Author Start: 02-06-2031 DTaP/Tdap/Td vaccine (7 - Td or Tdap) DTaP/Tdap/Td vaccine (7 - Td or Tdap) [facility] Start: 05-29-2026 End: 05-29-2026 Patient encounter procedure 05/29/2026 1:15 PM EDT Office Visit [facility] [address] [place] [address] Patrick Leiva MD [address] [place] [address] [facility] [place] [facility] Start: 04-09-2026 End: 04-09-2026 Patient encounter procedure [facility] Start: 05-29-2025 End: 05-29-2025 Patient encounter procedure [facility] Comment on above: Arrived Start: 05-19-2025 Influenza vaccination Flu vaccine (Season Ended) [facility] Start: 05-15-2025 End: 05-15-2025 Patient encounter procedure 05/15/2025 3:30 PM EDT Office Visit [facility] [address] [place] [phone] Patrick Leiva MD [address] [place] [address] [facility] Start: 05-05-2025 Urine culture [facility] Start: 05-05-2025 Bacteria identified in Urine by Culture Urine Culture [facility] Start: 04-24-2025 End: 04-24-2025 Patient encounter procedure [facility] Comment on above: Arrived Start: 04-10-2025 End: 04-10-2025 Patient encounter procedure [facility] Comment on above: Arrived Start: 04-05-2025 End: 04-05-2025 Patient encounter procedure 04/05/2025 1:00 PM EDT Office Visit [facility] [address] [place] [phone] Jefferson Gibbs DO [address] [address] Arrived [facility] Comment on above: Arrived Start: 01-22-2025 End: 01-22-2025 CYSTOSCOPY URETERAL STENT INSERTION CYSTOSCOPY URETERAL STENT INSERTION Renal calculus, left 01/22/2025 9:28 AM EDT [facility] Start: 01-21-2025 Urine culture [facility] Start: 01-21-2025 Bacteria identified in Urine by Culture Urine Culture [facility] Start: 12-02-2024 Urine culture [facility] Start: 12-02-2024 Bacteria identified in Urine by Culture Urine Culture [facility] Start: 06-19-2024 COVID-19 Vaccine ( season) COVID-19 Vaccine ( season) [facility] Start: 04-10-2024 [facility] Start: 04-08-2024 Referral to [facility] Start: 04-08-2024 Hospital admission [facility] Start: 04-08-2024 [facility] Start: 06-19-2022 Influenza vaccination INFLUENZA (#1) [facility] Start: 10-19-2021 DEPRESSION ASSESSMENT DEPRESSION ASSESSMENT [facility] Start: 2021 HPV TESTING HPV TESTING [facility] Start: 2021 [facility] [employer] [facility] Start: 2012 PAP TESTING PAP TESTING [facility] Start: 2012 Screening for malignant neoplasm of cervix Pap [facility] [employer] [facility] Start: 2010 Urine microalbumin profile DTAP,TDAP,TD (1 - Tdap) [facility] Start: 2009 HEPATITIS C SCREENING HEPATITIS C SCREENING [facility] Start: 2009 Hepatitis C screening Hepatitis C screen [facility] [employer] [facility] Start: 2009 HIV SCREENING HIV SCREENING [facility] Start: 2006 HIV screening [facility] Start: 2004 Varicella vaccine (1 of 2 - 13+ 2-dose series) Varicella vaccine (1 of 2 - 13+ 2-dose series) [facility] Start: 2003 Depression Screen Depression Screen [facility] Start: 1995 Polio vaccine (4 of 4 - 4-dose series) Polio vaccine (4 of 4 - 4-dose series) [facility] Start: 03-14-1992 COVID-19 VACCINE (#1) COVID-19 VACCINE (#1) [facility] Start: 1991 HEPATITIS B (1 of 3 - 3-dose series) HEPATITIS B (1 of 3 - 3-dose series) [facility] End: 01-24-2025 Basic metabolic 2000 panel - Serum or Plasma Basic metabolic panel Lab Routine Daily for 3 Days starting 01/22/2025 until 01/24/2025, 1 completed [employer] Comment on above: Daily for 3 Days starting 01/22/2025 unt il 01/24/2025, 1 completed End: 01-24-2025 CBC W Auto Differential panel - Blood CBC with Auto Differential Lab Routine Daily for 3 Days starting 01/22/2025 until 01/24/2025 [employer] Comment on above: Daily for 3 Days starting 01/22/2025 unt il 01/24/2025 Culture, Blood 1 [employer] Culture, Urine [employer] Comment on above: Release Upon Ordering for 1 Occurrences starting 01/22/2025 Cytology Cervical or vaginal smear or scraping study Pap Smear Pathology and Cytology Routine Well woman exam with routine gynecological exam Ordered: 04/05/2025 [facility] Work Phone: Comment on above: Ordered: 04/05/2025 Dermatopathology exam Dermatopat hology exam Pathology and Cytology Timed Neoplasm of unspecified behavior of bone, soft tissue, and skin Release Upon Ordering for 1 Occurrences starting 04/10/2025 [employer] Phone: Comment on above: Release Upon Ordering for 1 Occurrences starting 04/10/2025 Dermatopathology exam Dermatopat hology exam Pathology and Cytology Timed Neoplasm of unspecified behavior of bone, soft tissue, and skin Release Upon Ordering for 1 Occurrences starting 05/15/2025 [facility] Work Phone: Comment on above: Release Upon Ordering for 1 Occurrences starting 05/15/2025 End: 01-22-2025 Glucose [Mass/volume] in Serum or Plasma POCT Glucose Point of Care Testing Routine One Time for 1 Occurrences starting 01/22/2025 until 01/22/2025 [employer] Work Phone: Comment on above: One Time for 1 Occurrences starting 03/2025 until 01/22/2025 Human papilloma viru s DNA [Presence] in Unspecified specimen by Probe with amplification HPV DNA probe, amplified Microbiology Routine Well woman exam with routine gynecological exam Ordered: 04/05/2025 [facility] Comment on above: Ordered: 04/05/2025 Oxygen therapy [Mini mum Data Set] Initiate Oxygen Therapy Protocol Respiratory Care Routine As Needed until discontinued starting 01/21/2025 [employer] Comment on above: As Needed until discontinued starting Oxygen therapy [Mini mum Data Set] Initiate Oxygen Therapy Protocol Respiratory Care Routine As Needed until discontinued starting 01/26/2025 [employer] Comment on above: As Needed until discontinued starting Patient Education Bipolar Disord er (DC) [facility] [place] Instructions Know your Meds [facility] Work Phone: Patient referral [facility] Work Phone: End: 01-22-2025 Stone Analysis Stone Analysis Microbiology Routine One Time for 1 Occurrences starting 01/22/2025 until 01/22/2025 [employer] Work Phone: Comment on above: One Time for 1 Occurrences starting 03/2025 until 01/22/2025 Stone Analysis Stone Analysis Microbiology [employer] Label Print 01/22/2025 4:44 AM EDT [employer] End: 01-26-2025 Stone Analysis Stone Analysis Microbiology Routine One Time for 1 Occurrences starting 01/26/2025 until 01/26/2025 [employer] Comment on above: One Time for 1 Occurrences starting 01/17 until 01/26/2025 Immunizations Immunization Date Immunization Notes Care Provider Beata moore 08-01-2019 influenza virus vaccine, unspecified formulation Nona RAYGOZA [facility] 08-09-2018 tetanus toxoid, redu franco diphtheria toxoid, and acellular pertussis vaccine, adsorbed Nona RAYGOZA [facility] 08-08-2018 influenza virus vaccine, unspecified formulation Nona RAYGOZA [facility] 06-19-2004 hepatitis B vaccine, pediatric or pediatric/adolescent dosage Nona RAYGOZA [facility] 03-27-2004 hepatitis B vaccine, pediatric or pediatric/adolescent dosage Nona RAYGOZA [facility] 12-18-2003 hepatitis B vaccine, pediatric or pediatric/adolescent dosage Nona RAYGOZA [facility] 12-18-2003 measles, mumps and rubella virus vaccine Nona RAYGOZA [facility] 04-10-1993 DTaP, unspecified formulation [facility] [place] [facility] 04-10-1993 poliovirus vaccine, unspecified formulation [facility] [place] [facility] 12-28-1992 Hib, unspecified formulation Nona RAYGOZA [facility] 12-28-1992 measles, mumps and rubella virus vaccine [employer] [facility] 03-26-1992 Hib, unspecified formulation Nona RAYGOZA [facility] 01-18-1992 Hib, unspecified formulation Nona RAYGOZA [facility] 1991 Hib, unspecified formulation Nona RAYGOZA [facility] Payers Date Payer Category Payer Self-pay 2023 Private Health Insurance [employer] [id number] 2023 Unknown [id number] 2021 Medicaid [place] MEDICA[place]M 09/17 [facility] MEDICAID [id number] 2021-Present [phone] [address] [place] [address] Medicaid [id number] 1991 Unknown [id number] 2.16.840.1.908744.3.579.2. 593 1991 Unknown [id number] 2.16.840.1.256586.3.579.2. 593 1991 Unknown [id number] 2.16.840.1.323238.3.579.2. 593 1991 Unknown [id number] 2.16.840.1.608346.3.579.2. 593 1991 Unknown [id number] 2.16.840.1.668732.3.579.2. 593 1991 Unknown [id number] 2.16.840.1.421678.3.579.2. 593 1991 Unknown [id number] 2.16.840.1.929251.3.579.2. 593 1991 Unknown [id number] 2.16.840.1.543527.3.579.2. 593 1991 Unknown [id number] 2.16.840.1.233380.3.579.2. 593 1991 Unknown [id number] 2.16.840.1.428499.3.579.2. 593 1991 Unknown [id number] 2.16.840.1.038886.3.579.2. 593 1991 Unknown [id number] 2.16.840.1.401019.3.579.2. 593 1991 Unknown [id number] 2.16.840.1.419767.3.579.2. 593 1991 Unknown [id number] 2.16.840.1.190664.3.579.2. 593 1991 Unknown [id number] 2.16.840.1.847938.3.579.2. 593 1991 Unknown [id number] 2.16.840.1.488048.3.579.2. 593 1991 Unknown [id number] 2.16.840.1.038640.3.579.2. 727 1991 Unknown [id number] 2.16.840.1.803316.3.579.2. 727 1991 Unknown [id number] 2.16.840.1.903777.3.579.2. 727 1991 Unknown [id number] 2.16.840.1.873168.3.579.2. 727 1991 Unknown [id number] 2.16.840.1.478402.3.579.2. 174 1991 Unknown [id number] 2.16.840.1.482985.3.579.2. 175 1991 Unknown [id number] 2.16.840.1.609084.3.579.2. 175 1991 Unknown [id number] 2.16.840.1.040382.3.579.2. 175 1991 Unknown [id number] 2.16.840.1.728202.3.579.2. 175 1991 Unknown [id number] 2.16.840.1.315477.3.579.2. 718 1991 Unknown [id number] 2.16.840.1.593656.3.579.2. 1259 1991 Unknown [id number] 2.16.840.1.562602.3.579.2. 1259 1991 Unknown [id number] 2.16.840.1.709836.3.579.2. 1259 1991 Unknown [id number] 2.16.840.1.004400.3.579.2. 1259 1959 Medicaid [id number] 1959 Self-pay [id number] 1959 Unknown [id number] Unknown [id number] 2.16.840.1.802045.3.579.2. 531 Unknown [id number] 2.16.840.1.802389.3.579.2. 531 Unknown [id number] 2.16.840.1.002425.3.579.2. 531 Social History Date Type Detail [facility] Start: 1990 Sex Assigned At Not on file C [facility] Start: 08-20-2021 End: 04-10-2025 Tobacco smoking status Never smoked tobacco (finding) [facility] Tobacco smoking status Never [facility] Start: 01-22-2025 End: 05-15-2025 Sex Assigned At Female [facility] Start: 1990 Sex Assigned At Female F [facility] Start: 11-24-2024 End: 12-04-2024 Sex Female (finding) [facility] Start: 01-22-2025 End: 04-10-2025 Tobacco use and exposure Smokeless tobacco non-user [employer] Start: 01-22-2025 End: 01-27-2025 Alcoholic beverage intake Ex-drinker (finding) [employer] Start: 01-22-2025 End: 05-15-2025 History of Social function [employer] Has the [employer], or [employer] threatened to shut off services in your home in past 12Mo No Bon [employer] (I/We) worried wheth er (my/our) food would run out before (I/we) got money to buy more. Never true [employer] Start: 01-10-2024 End: 05-29-2025 Alcoholic beverage intake Lifetime non-drinker (finding) [facility] Medical Equipment Procedure Code Equipment Code Equipment Origin al Text Equipment Identifier Dates Stent Uret 6fr L 26cm Percflx Hydr+ Tapr Tip Grad - [id number] , [id number] FDA Start: 01-22-2025 Stent Uret 6fr L 26cm Percflx Hydr+ Dbl Pgtl Thrd 2 - [id number] ()[id number] , [id number], [id number] FDA Start: 01-27-2025 Goals Date Patient Goal Desired Activity /State Functional Status Date Assessment Result Facility 04-10-2024 Functional status Patient at Baseline [facility] Work Phone: 03-20-2023 Functional Status N/A [facility] Mental Status Date Assessment Result Facility 04-10-2024 Cognitive function Cognitive Sta tus Patient at Baseline [facility] Work Phone: Clinical Notes 07-03-2022 to 05-29-2025 Patrick Leiva MD - 05/29/2025 2:45 PM Waylon Leiva MD - 05/15/2025 3:30 PM Waylon Leiva MD - 04/24/2025 10:25 AM Waylon Leiva MD - 04/10/2025 9:50 AM EDTDischarge Instructions Note Date & Type Note Facility 05-29-2025 History of Present illness Narrative Suture Removal Patient here for suture removal: No complaints of redness, drainage or swelling at site, compliant with wound care. Location: Right shoulder, posterior Procedure Performed: Excision Date of Procedure: 05/15/2025 Medications: None All pertinent medical history, medications, and allergies were reviewed. General Exam: alert, oriented to person, place, and time, normal affect, well appearing A focused exam completed based on patient reported problems, see below: Skin Exam 1. ENCOUNTER FOR REMOVAL OF SUTURES Right Shoulder - Posterior Sutures are intact, Skin edges are well-approximated, Mild erythema along incision line, No drainage or edema noted Suture Removal: Procedure: Sutures were removed without difficulty. Tincture of Benzoin was applied around site in preparation of steri-strips. Steri-strips were applied Post-Procedure instructions: Instructed to discontinue wound care., Instructed to keep steri strips on for at least 5-7 days., Pathology results discussed. Next Visit: 1 year, skin check documented in this encounter [facility] 05-15-2025 History of Present illness Narrative Images from the original note were not included. Subjective Diana Barriga is a 34 y.o. female [...] medications, and allergies were reviewed. 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 04-24-2025 History of Present illness Narrative Images [...] Visit: as scheduled documented in this encounter [facility] 04-10-2025 History of Present illness Narrative Images [...] OF RIGHT UPPER EYELID Right Upper Eyelid Gaastra papule Favor possible stye, recommend patient continue [...] Visit: 2 weeks documented in this encounter 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/18/2018 Anxiety 07/26/2020 Bipolar disorder ([facility]) 06/01/2023 Dysuria 06/01/2023 Entrapment of left ulnar nerve 06/01/2023 Feeling of incomplete bladder emptying 06/01/2023 Flank pain 06/01/2023 Frequency of urination 06/01/2023 History of chlamydia 07/26/2020 History of gestational diabetes 07/26/2020 History of kidney stones 06/01/2023 Hypercalciuria 06/01/2023 Hyperoxaluria 06/01/2023 Intrauterine ([facility]) 02/18/2018 Lesion of ulnar nerve 06/01/2023 Mass of scalp 06/01/2023 Muscle pain 06/01/2023 Microhematuria 06/01/2023 Astigmatism 05/05/2017 Nocturia 06/01/2023 Overweight 06/01/2023 Pyelonephritis 06/01/2023 Kidney stone 06/01/2023 Retroflexion of uterus 06/01/2023 Sprain of calcaneofibular ligament 06/01/2023 Streptococcal pharyngitis 06/01/2023 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/01/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 06/01/2023 Superficial thrombophlebitis 06/01/2023 Term delivery with labor in third trimester ([facility] 08/06/2018 Urge incontinence 06/01/2023 Urinary urgency 06/01/2023 UTI (urinary tract infection) 06/01/2023 Mass of left breast 01/08/2024 Resolved Ambulatory Problems Diagnosis Date Noted Encounter for gynecological examination (general) (routine) without abnormal findings 04/10/2023 Past Medical History: Diagnosis Date Abnormal Pap smear of cervix Anxiety and depression Bipolar 1 disorder (HCC) Bladder prolapse, congenital ([facility]) Dysplasia of cervix S/P VH (vaginal hysterectomy) 05/06/2023 Yeast infection HISTORY PAST MEDICAL HISTORY SOCIAL HISTORY Past Medical History: Diagnosis Date Abnormal Pap smear of cervix Anxiety and depression Bipolar 1 disorder (HCC) Bladder prolapse, congenital ([facility]) Dysplasia of cervix History of kidney stones [...] nursing note reviewed. Exam conducted with a dean of instruction present. Vitals: Estimated body mass index is [...] them. Patient can also view results via [employer]. I reinforced importance of condom use for [...] Jefferson Gibbs DO documented in this encounter [facility] 01-29-2025 History of Present illness Narrative Patient given all discharge instructions and education. Patient and present for teaching. Patient voices she still has antibiotic at home and was instructed to continue to taking them. Patient also instructed to pull stent. Awaiting scripts from pharmacy. Images from the original note were not included. [facility] Office: [phone] Duncan Shelton DO, Rad Burks DO, Gerald [...] CNP, Angelica Chaney CNP, Vivian Kahn CNP, SANA LaraC, Kyung Barkley CNP, Hetal Morris CNP, Yvette Canchola, WAYNE, Gail Greene, WAYNE, Dominguez Nunez PA-C, Mar Sanchez CNP, Cecelia Pearson, KYUNG, Ivy Cortes, WAYNE, Felicita Rm, WAYNE, Pau Viera, WAYNE [facility]-PATIENT SERVICE [facility] Progress Note 01/29/2025 9:05 AM Name: Diana Barriga Acct: [id number] Room: [address] [place] [address] Day: 3 Admit Date: 01/26/2025 5:25 PM [...] results for input(s): LABALBU , LABA1C , H5XOJWN , FT4 , TSH , AST , ALT , LDH , GGT , ALKPHOS , BILITOT , BILIDIR , AMMONIA , AMYLASE , LIPASE , LACTATE , CHOL , HDL , CHOLHDLRATIO , TRIG , VLDL , NDF71RL , PHENYTOIN , PHENYF , URICACID , POCGLU in the last 72 hours. Invalid input(s): PROT , A3BARYU , LABGGT , LDLCHOLESTEROL ABG:No results found for: POCPH , PHART , PH , POCPCO2 , KXB4RCV , PCO2 , POCPO2 , PO2ART , PO2 , POCHCO3 , PPS8QVQ , HCO3 , NBEA , PBEA , BEART , BE , THGBART , THB , CJC0KZJ , QMZZ6XQA , X8NMLJVG , O2SAT , FIO2 Lab Results Component [...] from the original note were not included. [facility] Office: [phone] Duncan Shelton DO, Rad Burks DO, Gerald Le DO, Kyle Medina DO, Felipe Sandhu MD, Yancy Padgett MD, Sonia Alvarado MD, Kerri Meza MD, Arron Olson MD, Rebecca Cox MD, Deneen Kaur MD, Nathen Hemphlil DO, Lynda Jimenez MD, Everette Wiggins MD, [...] Rogers MD, Johnathon Cerda MD, Makenzie Alberts, [employer], Hodan Grove, DEAN [employer] INSTRUCTION, Casey Mercer, DEAN [employer] INSTRUCTION, Galilea Bradshaw, [facility], Ritika Villaseñor, DEAN OF INSTRUCTION, Indu Montoya, DEAN [employer] INSTRUCTION, Angelica Chaney, DE[employer] IN[employer]CTION, Vivian Kahn, DEAN OF INSTRUCTION, Graima Balbuena, PA-C, Kyung Barkley, DEAN [employer] INSTRUCTION, Hetal Morris, DEAN [employer] INSTRUCTION, Yvette Canchola, DEAN OF INSTRUCTION, Gail Greene, DEAN OF INSTRUCTION, Dominguez Nunez, PA-C, Mar Sanchez, DEAN OF INSTRUCTION, Cecelia Pearson, CYBER SECURITY ENGINEER, Ivy Cortes, DEAN [employer] INSTRUCTION, Felicita Rm, DEAN OF INSTRUCTION, Pau Viera, DEAN OF INSTRUCTION [facility] IN-PATIENT SERVICE [facility] Progress Note 01/28/2025 1:05 PM Name: Diana Barriga Acct: [id number] Room: 0321/0321-02 Day: 2 Admit Date: 01/26/2025 5:25 PM [...] results for input(s): LABALBU , LABA1C , H0IOZOG , FT4 , TSH , AST , ALT , LDH , GGT , ALKPHOS , BILITOT , BILIDIR , AMMONIA , AMYLASE , LIPASE , LACTATE , CHOL , HDL , CHOLHDLRATIO , TRIG , VLDL , BKP37HD , PHENYTOIN , PHENYF , URICACID , POCGLU in the last 72 hours. Invalid input(s): PROT , R7PMQBR , LABGGT , LDLCHOLESTEROL ABG:No results found for: POCPH , PHART , PH , POCPCO2 , DSF2QKM , PCO2 , POCPO2 , PO2ART , PO2 , POCHCO3 , PLY8MEX , HCO3 , NBEA , PBEA , BEART , BE , THGBART , THB , ZPJ7KHK , KUHG8EPE , W3YAOGOT , O2SAT , FIO2 Lab Results Component [...] 0.9 0.7 Recent Labs 01/26/25 1753 [address] [place]* PHUR 6.5 WBCUA 20 TO 50 RBCUA [...] mass loss Fluid Accumulation: Unable to assess Feller Hand Strength: Not Performed Nutrition Assessment: 34 y.o.F [...] Measures: Height: 167.6 cm (5' 5.98 ) Jay Body Weight (IBW): 130 lbs (59 kg) Current Body Weight: 81.6 kg (179 lb 14.3 oz), 138.4 % IBW. Current BMI (kg/m2): 29 Estimated Daily Nutrient Needs: Energy Requirements Based On: Formula Weight Used for Energy Requirements: Current Energy (kcal/day): 2109-4570 kcals/day Weight Used for Protein Requirements: Current Protein (g/day): 82-92 g/day Method Used for Fluid Requirements: 1 ml/kcal Fluid (ml/day): 1496-6033 ml/day Nutrition Diagnosis: Inadequate oral intake related [...] determine Anastasiya Medel RDN, LD, MS Contact: [phone] Images from the original note were not included. [facility] Office: [phone] Duncan Shelton DO, Rad Burks DO, Gerald [...] Rogers MD, Johnathon Cerda MD, Makenzie Alberts, DEAN OF INSTRUCTION, [place], DEAN OF INSTRUCTION, Casey Mercer, DEAN OF INSTRUCTION, Galilea Bradshaw, [facility], Ritika Villaseñor, DEAN [employer] INSTRUCTION, Indu Montoya, DEAN OF INSTRUCTION, Angelica Chaney, DEAN [employer] INSTRUCTION, Vivian Kahn, DEAN OF INSTRUCTION, Garima Balbuena, PA-C, Kyung Barkley, DEAN [employer] INSTRUCTION, Hetal Morris, DEAN OF INSTRUCTION, Yvette Canchola, DEAN OF INSTRUCTION, Gail Greene, DEAN OF INSTRUCTION, Dominguez Nunez, PA-C, Mar Sanchez, DEAN [employer] INSTRUCTION, Cecelia Pearson, CYBER SECURITY ENGINEER, Ivy Cortes, DEAN OF INSTRUCTION, Felicita Rm, DEAN OF INSTRUCTION, Pau Viera, DEAN OF INSTRUCTION [facility] IN-PATIENT SERVICE [facility] Progress Note 01/27/2025 9:31 AM Name: Diana Barriga Acct: [id number] Room: 0321/0321-02 Day: 1 Admit Date: 01/26/2025 5:25 PM PCP: Domingo Snyder MD Code Status: Full Code Subjective: Started having increased pain and pressure on left side on Thursday. Called Urologist yesterday who recommended going to [place]. She had a CT scan which showed [...] results for input(s): LABALBU , LABA1C , V7ZWAJA , FT4 , TSH , AST , ALT , LDH , GGT , ALKPHOS , BILITOT , BILIDIR , AMMONIA , AMYLASE , LIPASE , LACTATE , CHOL , HDL , CHOLHDLRATIO , TRIG , VLDL , HAX00BA , PHENYTOIN , PHENYF , URICACID , POCGLU in the last 72 hours. Invalid input(s): PROT , P2GGXLB , LABGGT , LDLCHOLESTEROL ABG:No results found for: POCPH , PHART , PH , POCPCO2 , OQV3VGN , PCO2 , POCPO2 , PO2ART , PO2 , POCHCO3 , VHC2XLA , HCO3 , NBEA , PBEA , BEART , BE , THGBART , THB , TKB4PGK , DFQS0LVR , K3WIUJDD , O2SAT , FIO2 Lab Results Component [...] CREATININE 0.9 Recent Labs 01/26/25 1753 [address] [place]* PHUR 6.5 WBCUA 20 TO 50 RBCUA [...] PM EDT documented in this encounter [facility] 01-29-2025 Hospital course Narrative Images from the original note were not included. [facility] Office: [phone] Duncan Shelton DO, Rad Burks DO, Gerald [...] Rogers MD, Johnathon Cerda MD, Makenzie Alberts, DEAN OF INSTRUCTION, [place], DEAN OF INSTRUCTION, Casey Mercer, DEAN OF INSTRUCTION, Galilea Bradshaw, [facility], Ritika Villaseñor, DEAN OF INSTRUCTION, Indu Montoya, DEAN OF INSTRUCTION, Angelica Chaney, DEAN OF INSTRUCTION, Vivian Kahn, DEAN OF INSTRUCTION, Garima Balbuena, PAAilynC, Kyung Barkley, DEAN OF INSTRUCTION, Hetal Morris, DEAN OF INSTRUCTION, Yvette Canchola, DEAN OF INSTRUCTION, Gail Greene, DEAN OF INSTRUCTION, Dominguez Nunez PAAilynC, Mar Sanchez, DEAN OF INSTRUCTION, Cecelia Pearson, [facility], Ivy Cortes, DEAN OF INSTRUCTION, Felicita Rm, DEAN OF INSTRUCTION, Pau Viera, DEAN OF INSTRUCTION [facility] IN-PATIENT SERVICE [facility] Discharge Summary Patient ID: Diana Barriga : 1990 ACCOUNT: [id number] Patient's PCP: Domingo Snyder MD Admit Date: [...] Physician Follow Up: Domingo Snyder MD [address] [facility] [address] Schedule an appointment as soon as possible for a visit in 1 week(s) Adonis Guerra MD [address] [place] [address] Follow up Renal US in 6 [...] narcotics Please call attending physician or hospital automatic vulcanizing lead operator with questions Call or Present to [...] this patient's care. documented in this encounter [facility] 01-28-2025 Hospital Discharge instructions Glen Desai MD [...] narcotics Please call attending physician or hospital automatic vulcanizing lead operator with questions Call or Present to [...] call with questions. documented in this encounter [facility] 01-22-2025 History of Present illness Narrative CLINICAL [...] paid by clover documented in this encounter [facility] 01-22-2025 Hospital course Narrative Images from the original note were not included. [facility] Office: [phone] Duncan Shelton DO, Rad Burks DO, Gerald [...] Galilea Bradshaw DNP, Ritika Villaseñor, WAYNE, Indu Montoya, WAYNE, Angelica Chaney CNP, Vivian Kahn CNP, Garima Balbuena PA-C, Kyung Barkley CNP, Hetal Morris CNP, Yvette Canchola, DE[employer] OF INSTRUCTION, Gail Greene, DEAN OF INSTRUCTION, Dominguez Nunez PA-C, Mar Sanchez CNP, Cecelia Perason, KYUNG, Ivy Cortes CNP, Felicita Rm, WAYNE, Pau Viera, WAYNE [facility] IN-PATIENT SERVICE [facility] Discharge Summary Patient ID: Diana Barriga : 1990 ACCOUNT: [id number] Patient's PCP: Domingo Snyder MD Admit Date: [...] who was transferred to our hospital from [facility] for evaluation of flank pain. CT scan [...] Home Physician Follow Up: Adonis Guerra MD [address] [place] [address] Schedule an appointment as soon as possible [...] Your Medications These medications were sent to [facility] - [place], [place] - [address] [facility] - P [phone] - F [phone] [address] [facility] [address] hyoscyamine 0.125 MG tablet oxyCODONE 5 MG [...] care. v documented in this encounter [facility] 01-22-2025 Hospital Discharge instructions Zia Covington MD [...] narcotics Please call attending physician or hospital automatic vulcanizing lead operator with questions Call or Present to ED if fever (> 101F), intractable nausea vomiting or pain. Rx e-prescribed Pt should follow up with Dr. Guerra, in 1-2 weeks, for definitive stone treatment, call to confirm appointment documented in this encounter [facility] 04-10-2024 Discharge summary Note Date/Time April 10, 2024 7:10am [facility] [address] [place] [address] Discharge Summary Signed Patient: Diana Barriga MR#: [id number] : 1990 Acct:[id number] Age/Sex: 33 / F Adm Date: 4 Loc: Room: [address] [place] [address]: Arnulfo Aviles MD Copies to: [...] Dr. Fenton but wants to switch to [facility]. Along with this patient is in marriage counseling with her current and that today's session was not good. Patient stated she needs to be home to take care of her kids, the custody [place], and her marriage. Patient upset because she missed her son's play and has plans to take kids to [place] tomorrow. Patient denies any suicidal ideation denies hallucinations denies racing thoughts. Patient reports that there is no changes in her appetite or sleep. Patient reports that she feels fine. She has tried a lot of medications in the past and believes none of them have worked. He is going to [facility] for psych therapy. He wants to try [...] She has an appointment coming up with [place] counseling. She deniedrecent suicide attempts or self [...] Restriction Diet: Regular Instructions: Bipolar Disorder (DC), [facility] DC Instructions, Know your Meds [...] by Arnulfo Aviles MD> 04/10/24 0929 [facility] Work Phone: 1(851) 263-469806-22-2024 History and physical note Author Arnulfo ornelas [facility] April 09, 2024 9:09am Note Date/Time April 09, 2024 8:43 am [facility] [address] [place] [address] Psychiatry H&P Signed Patient: Diana Barriga MR#: [id number] : 1990 Acct:[id number] Age/Sex: 33 / F Adm Date: 4 Loc: Room: [address] [place] [address] Type: ADM IN Attending Dr: Arnulfo Aviles [...] Dr. Fenton but wants to switch to [facility]. Along with this patient is in marriage counseling with her current and that today's session was not good. Patient stated she needs to be home to take care of her kids, the custody [place], and her marriage. Patient upset because she missed her son's play and has plans to take kids to [place] tomorrow. Patient denies any suicidal ideation denies hallucinations denies racing thoughts. Patient reports that there is no changes in her appetite or sleep. Patient reports that she feels fine. She has tried a lot of medications in the past and believes none of them have worked. He is going to [facility] for psych therapy. He wants to try therapy before any medications. 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 Documented By: Arnulfo Aviles MD 4 0825 Signed By: <Electronically signed by Arnulfo Aviles MD> 04/09/24 0909 [facility] Work Phone: 1(138) 381-514806-02-2023 Hospital Discharge instructions Follow Up Care 03/20/2023 11:51:58 With:IDALMIS BORDEN, Nona Turner, URL Address: [address] [place], [place] [address]- When: Unknown [facility] 06-02-2023 Hospital Discharge instructions Patient Education [...] include: ?8 oz (237 mL) of milk, bkcfohl-uvrrzdpulsfu-uitpe milk, and calcium- fortifiedfruit juice. Calcium-fortified means [...] ?Spinach (cooked), rhubarb, beets, sweet potatoes, and Honduran chard. ?Peanuts. ?Potato chips, british virgin islander fries, and baked potatoes with skin on. ?Nuts and nut products. ?Chocolate. If you regularly take a diuretic medicine, make sure to eat at least 1 or 2 servings of fruits or vegetables that are high in potassium each day. These include: ?Avocado. ?Banana. ?[place], prune, carrot, or tomato juice. ?Baked potato. [...] magnesium, fish oil, or vitamin B6. Take jcyz-szt-pqvhfwb and prescription medicines only as told by [...] Casseroles. Pizza. Lasagna. Frozen meals. Potato chips. Comoran fries. The items listed above may not [...] provider. Document Revised: 06/16/2022 Document Reviewed: 06/16/2022 [employer] Patient Education 2022 [employer] Follow Up Care 12/26/2022 08:46:46 With:IDALMIS BORDEN, Nona Turner, URL Address: [facility] [address], [place] [address]- When: Unknown [facility] 01-20-2023 NoteOPERATIVE NOTE OPERATION DATE: 11/07/2022 PROCEDURE: Mery endometrial ablation with LEEP. PREOPERATIVE DIAGNOSIS: Cervical dysplasia, menorrhagia. POSTOPERATIVE DIAGNOSIS: Cervical dysplasia, menorrhagia. ANESTHESIA: General. SURGEON: Jefferson Gibbs D.O. SENIOR SOFTWARE ENGINEER: None. BLOOD LOSS: 50 mL. URINE [...] taken to Recovery Room in stable condition.[facility] Discharge instructions Follow Up Care 09/25/2022 13:54:04 With:IDALMIS BORDEN, Nona Turner, DANYA Address: [address] [place], [place] [id number]- When: Unknown [facility] 12-01-2022 NoteOPERATIVE NOTE OPERATION DATE: 09/18/2022 [...] usual fashion. I started by passing a 22-Comor[place] Olympus cystoscope per urethra and into the [...] removed. She was then transferred to a gurkrypton and wheeled to PACU in stable condition.[facility] CenterOdijkmgi71-06-6609 NoteHNO ID: [id number] Author: Daniel Montgomery APRN.[facility] Service: ? Author Type: Nurse Practitioner Type: Progress Notes Filed: 09/04/2022 7:46 AM Note Text: The patient did not show up for this appointment. The patient did not show up for this appointment.[facility]iv[facility]-5540 History of Present illness Narrative* Daniel Montgomery APRN.DE[employer] - 09/04/2022 7:40 AM EST The patient did not show up for this appointment. The patient did not show up for this appointment. [facility] NotePROCEDURE: XR ANKLE LT MIN 3 V COMPARISON: None. HISTORY: Sprain of calcaneofibular ligament FINDINGS: BONES:No fracture, acute abnormality, or significant arthropathy. SOFT TISSUES:Extensive lateral soft tissue swelling EFFUSION:None visible. OTHER: Negative. IMPRESSION: Lateral soft tissue swelling. No acute fracture Electronically authenticated by: GLEN PEREZ Date: 2022-07-03 07:09[facility] Future Appointments Appointment Date:03/20/2023 10:15:00 AM Scheduled Provider:Nona RAYGOZA MD Location:[facility] Appointment Type:URO Office Visit [facility] evaluation + Plan note Future Appointments Appointment Date:12/04/2023 09:45:00 AM Scheduled Provider:Nona RAYGOZA MD Location:[facility] Appointment Type:URO Office Visit Diagnostic Tests Pending * Electrolyte Panel 03/20/23 [facility] evaluation note* Diagnosis NO SHOW- Primary [facility]* Diagnosis Onset Date Resolution Status Bipolar disorder acute [facility] Work Phone: evaluation noteNo assessment information available [facility] Work Phone: evaluation note* Diagnosis VUR (vesicoureteric reflux) Vesicoureteral reflux, unspecified or without reflux nephropathy [facility] [employer] [facility] note* Diagnosis Left ureteral calculus- Primary Calculus of ureter Renal calculus, left Calculus of kidney Acute postoperative pain Other acute postoperative pain Acute cystitis without hematuria Acute cystitis Acute postoperative pain Other acute postoperative pain Urinary tract obstruction by kidney stone Calculus of kidney documented [facility] [employer] [facility]* Diagnosis Hydronephrosis with renal calculous obstruction- Primary Bilateral ureteral calculi Acute postoperative pain Other acute postoperative pain Left ureteral calculus Calculus of ureter S/P cystoscopy with ureteral stent placement Pyelonephritis Pyelonephritis, unspecified documented in this encounter [facility] [employer] [facility]* Diagnosis Well woman exam with routine gynecological exam Routine gynecological examination H/O: hysterectomy Acquired absence of both cervix and uterus Night sweats Generalized hyperhidrosis [facility]* Diagnosis Hordeolum externum of right upper eyelid- Primary Neoplasm of unspecified behavior of bone, soft tissue, and skin documented in this encounter [facility]* Diagnosis Encounter for removal of sutures- Primary documented in this encounter [facility]* Diagnosis Neoplasm of unspecified behavior of bone, soft tissue, and skin- Primary documented in this encounter [facility]* Diagnosis Encounter for removal of sutures- Primary documented in this [facility] Narrative No data available for this section [facility] progress note No data available for this section [facility] reason for referral (narrative)No reason for referral information [facility]Prem[facility] Work Phone: Reason for visit Narrative* Imaging (Routine) - Open Specialty Diagnoses / Procedures Referred By Luis grigsby Referred To Contact Radiology Diagnoses VUR (vesicoureteric reflux) Procedures FL VOIDING URETHROCYSTOGRAM S&I Adonis Guerra MD [address] [place] [address] Phone: tel: fax: Referral ID Status Reason Start Date Expiration Date Visits Re quested Visits Authorized [id number] Open 01/09/2025 01/09/2026 1 1 [facility] [employer] [facility] for visit Narrative* Auth/Cert Specialty Diagnoses / Procedures Referred By Luis grigsby Referred To Contact Diagnoses Urinary tract obstruction by kidney stone UTI (urinary tract infection) Ureteral calculi Luis Felipe Delacruz MD [address] [facility] [place] [address] Phone: tel: fax: [facility] [employer] [address] [place] [address] Referral ID Status Reason Start Date Expiration Date Visits Re quested Visits Authorized [id number] [facility] [facility] N[facility]ative* Auth/Cert Specialty Diagnoses / Procedures Referred By Contac t Referred To Contact Diagnoses Hydronephrosis, left Luis Felipe Delacruz MD [address] [place] [address] Phone: tel: fax: [facility] [employer] [address] [place] [address] Referral ID Status Reason Start Date Expiration Date Visits Re quested Visits Authorized [id number] 1 1 [facility] [employer] Summary Purpose Family History Relationship Condition Age at Onset Recorded Date/T leonid Not Specified Hypertension Unknown family member Suicide Unknown grandparent Suicide Unknown Relationship Condition Age at Onset Recorded Date/T leonid mother Hypertension Unknown family member Suicide Unknown grandparent Suicide Unknown Advance Directives Advance Directive Response Recorded Date/ Time Advance [...] 5:24pm Unknown January 21, 2025 5:20 pm Chief Complaint Admit Date Unknown May 05, 2025 7:11 pm Additional Source Comments Source Comments (unrecognize d section and content) In the event this informatio n is protected by the Federal Confidentiality of Alcohol and Drug Abuse Patient Records regulations: The Federal rules restrict any use of the information to criminally investigate or prosecute any alcohol or drug abuse patient.[facility] Reason for Visit (unrecogniz ed section and content) Reason Onset Date Comments No Show 09/04/2022 No show Reason Comments Gynecologic Exam Reason Comments Suspicious Skin Lesion Reason Comments Suture / Staple Removal Care Teams (unrecognized sec tion and content) Ben Day Artist Relationship Specialty Start Date End Date Domingo Snyder MD [address] [place] [address] Referring Family Medicine 09/01/22 Team Status: Active [...] December 02, 2024 End: December 02, 2024 Ben Day Artist Relationship Specialty Start Date End Date Domingo Snyder MD [address] [place] [address] PCP - General Family Medicine 01/05/25 Ben Day Artist Relationship Specialty Start Date End Date Domingo Snyder MD [address] [place] [address] PCP - General Family Medicine 01/05/25 Ben Day Artist Relationship Specialty Start Date End Date Domingo Snyder MD [address] [place] [phone] PCP - General Family Medicine 01/05/25 Team Status: Inactive Member Role Status Dates Javi Tanner PA-C Attending Provider Active Start: January 21, 2025 End: January 21, 2025 Ben Day Artist Relationship Specialty Start Date End Date Domingo Snyder MD [address] [place] [address] PCP - General Family Medicine 01/05/25 Ben Day Artist Relationship Specialty Start Date End Date Domingo Snyder MD [address] [place] [address] PCP - General Family Medicine 04/13/23 Ben Day Artist Relationship Specialty Start Date End Date Domingo Snyder MD [address] [place] [facility] [address] PCP - General Family Medicine 04/13/23 Ben Day Artist Relationship Specialty Start Date End Date Domingo Snyder MD [address] [place] [facility] [address] PCP - General Family Medicine 04/13/23 Ben Day Artist Relationship Specialty Start Date End Date Domingo Snyder MD [address] [place] [facility] [address] PCP - General Family Medicine 04/13/23 Ben Day Artist Relationship Specialty Start Date End Date Domingo Snyder MD [address] [place] [address] PCP - General Family Medicine 04/13/23 Team Status: Inactive Member Role Status Dates Vj Fraire DO Attending Provider Active Start: May 05, 2025 End: May 05, 2025 Ben Day Artist Relationship Specialty Start Date End Date Domingo Snyder MD [address] [place] [address] PCP - General Family Medicine 04/13/23 Ben Day Artist Relationship Specialty Start Date End Date Domingo Snyder MD [address] [place] [address] PCP - General Family Medicine 04/13/23 INFORMATION SOURCE (unrecogn ized section and content) DATE CREATED AUTHOR 09/06/2022 [facility] DATE CREATED AUTHOR AUTHOR'S ORGANIZ ATION 02/19/2023 [facility] DATE CREATED AUTHOR AUTHOR'S ORGANIZ ATION 12/06/2023 [facility] DATE CREATED AUTHOR AUTHOR'S ORGANIZ ATION 10/05/2024 [facility] DATE CREATED AUTHOR AUTHOR'S ORGANIZ ATION 01/16/2025 [facility] DATE CREATED AUTHOR AUTHOR'S ORGANIZ ATION 02/03/2025 [facility] DATE CREATED AUTHOR AUTHOR'S ORGANIZ ATION 04/05/2025 [facility] DATE CREATED AUTHOR AUTHOR'S ORGANIZ ATION 05/09/2025 [facility] DATE CREATED AUTHOR AUTHOR'S ORGANIZ ATION 05/16/2025 [facility] EPIC Goals (unrecognized section and content) Goals may [...] as needed for Pain 21 tablet 01/29/2025 oxyCODONE (ROXICODONE) 5 MG immediate release tabletIndications:A [...] mL IV syringe (COMPLETED) 2,000 mg, IntraVENous, INFORMATICA ARCHITECT TO O.R., On 01/22/25 at 0930, For 1 dose, Administer over 5 mins. 0928 (MAR Hold - Provider: Tamy Autohold - Reason: Unreviewed Transfer Orders)0930 (Automatically Held - Provider: Tamy Autohold)0939 (Given - Provider: KONSTANTIN Baird CRNA)0940 (MAR Unhold - Provider: KONSTANTIN Baird CRNA) cefTRIAXone (ROCEPHIN) 1,000 mg in sterile water 10 mL IV syringe 1,000 mg, IntraVENous, EVERY 24 HOURS, First dose on 01/22/25 at 1900, For 10 days, Administer as slow IV Push over 5 mins Reconstitute 1 g vials with 9.6 mL of designated diluent to produce a 100 mg/mL solution. 0928 (MAR Hold - Provider: Tamy Autohold - Reason: Unreviewed Transfer Orders)1027 ([facility] Unhold - Provider: Anastasiya Coates RN)1900 (Due - Provider: Sudeep Ordonez [facility]) enoxaparin (LOVENOX) injection 40 mg 40 mg, SubCUTAneous, DAILY, First dose on 01/22/25 at 0900, Until Discontinued, Indication of Use: Prophylaxis-DVT/PE, Administer by deep subCUTAneous injection with pt lying down. Alternate injection sites on abdominal wall. Do not rub site after injection. Check with provider prior to any invasive procedure. 12 (Not Given - Provider: Anastasiya Coates RN - Reason: Patient/family refused - Comment: Pt. educated on importance and intent)0928 ([facility] Hold - Provider: [facility] [employer] - Reason: Unreviewed Transfer Orders)1027 ([facility] Unhold - Provider: Anastasiya Coates RN) ibuprofen (ADVIL;MOTRIN) tablet 600 mg (COMPLETED) 600 mg, Oral, ONCE, 1 dose, On 01/22/25 at 0015 2359 (Given - Provider: Aundrea Beltre, FELA) tamsulosin (FLOMAX) capsule 0.4 mg 0.4 mg, Oral, DAILY, First dose on 01/22/25 at 0900, Until Discontinued, Do not crush or break. Give 30 minutes after a full meal to limit risk of orthostatic hypotension/falls. 0834 (Given - Provid er: Anastasiya Coates RN)927 ([facility] Hold - Provider: Tamy Autohold - Reason: Unreviewed Transfer Orders)1027 ([facility] Unhold - Provider: Anastasiya Coates RN) Continuous Medication Order 01/20/2025 01/21/2025 01/22/2025 0.9 % sodium chloride infusion (CANCELED) IntraVENous, at 150 mL/hr, CONTINUOUS, Starting on 01/22/25 at 0015 0002 (New Bag - Prov ider: Aundrea Beltre RN)0557 (New Bag - Provider: Aundrea Beltre, FELA)0928 ([facility] Hold - Provider: [facility] [employer] - Reason: Unreviewed Transfer Orders)1027 ([facility] Unhold - Provider: Anastasiya Coates RN) PRN Medication Order 01/20/2025 01/21/2025 01/22/2025 acetaminophen (TYLENOL) suppository 650 mg(Linked Group 1) 650 mg, Rectal, EVERY 6 HOURS PRN, Starting on 01/21/25 at 2346, Until Discontinued, Pain Mild (1-3), allowed for higher pain score per patient request, Fever, For temp greater than 100.4 F (38 C), Administer if oral route cannot be used. 09 ([facility] Hold - Pro vider: [facility] [employer] - Reason: Unreviewed Transfer Orders)102 ([facility] Unhold - Provider: Anastasiya Coates RN) acetaminophen (TYLENOL) tablet 650 mg(Linked Group 1) 650 mg, Oral, EVERY 6 HOURS PRN, Starting on Sat 4/25 at 2346, Until Discontinued, Pain Mild (1-3), allowed for higher pain score per patient request, Fever, For temp greater than 100.4 F (38 C), Maximum dose of acetaminophen is 4000 mg from all sources in 24 hours. 927 ([facility] Hold - Pro vider: [facility] [employer] - Reason: Unreviewed Transfer Orders)102 ([facility] Unhold - Provider: Anastasiya Coates RN) magnesium sulfate 2000 mg in 50 mL IVPB premix 2,000 mg, IntraVENous, at 25 mL/hr, Administer over 2 Hours, PRN, Other, Magnesium Replacement, Starting on Sat 4 at 2346, Mag Lab Replacement Action 1.4-1.6 [...] in Patients with CrCl less than 30ml/min 927 ([facility] Hold - Pro vider: [facility] [employer] - Reason: Unreviewed Transfer Orders)1027 ([facility] Unhold - Provider: Anastasiya Coates RN) morphine [...] (See Alternative - Provider: Anastasiya Coates RN)0928 (MAR Hold - Provider: [facility] [employer] - Reason: Unreviewed Transfer Orders)1027 (MAR Unhold - Provider: Anastasiya Coates RN) morphine [...] RN)0832 (Given - Provider: Anastasiya Coates RN)0928 (MAR Hold - Provider: [facility] [employer] - Reason: Unreviewed Transfer Orders)1027 (MAR Unhold - Provider: Anastasiya Coates RN) ondansetron (ZOFRAN) injection 4 mg(Linked Group 3) 4 mg, IntraVENous, EVERY 6 HOURS PRN, Starting on 4/5/25 at 2346, Until Discontinued, Nausea, Vomiting, Administer if oral route cannot be used. 0001 (Given - Provid er: Aundrea Beltre RN)0554 (Given - Provider: Aundrea Beltre RN)0928 (MAR Hold - Provider: [facility] [employer] - Reason: Unreviewed Transfer Orders)1027 (MAR Unhold - Provider: Anastasiya Coates RN) ondansetron (ZOFRAN-ODT) disintegrating tablet 4 mg(Linked Group 3) 4 mg, Oral, EVERY 8 HOURS PRN, Starting on 4/5/25 at 2346, Until Discontinued, Nausea, Vomiting 0001 (See Alternativ e - Provider: Aundrea Beltre RN)0554 (See Alternative - Provider: Aundrea Beltre RN)0928 (MAR Hold - Provider: [facility] [employer] - Reason: Unreviewed Transfer Orders)1027 ([facility] Unhold - Provider: Anastasiya Coates RN) oxyCODONE (ROXICODONE) immediate release tablet 2.5 mg(Linked Group 4) 2.5 mg, Oral, EVERY 4 HOURS PRN, Starting on 4/5/25 at 2346, Until Discontinued, Pain Moderate (4-6), allowed for higher pain score per patient request 0000 (See Alternativ e - Provider: Aundrea Beltre RN)0928 (MAR Hold - Provider: [facility] [employer] - Reason: Unreviewed Transfer Orders)1027 ([facility] Unhold - Provider: Anastasiya Coates RN)1053 (See Alternative - Provider: Anastasiya Coates RN) oxyCODONE (ROXICODONE) immediate release tablet 5 mg(Linked Group 4) 5 mg, Oral, EVERY 4 HOURS PRN, Starting on Sat 4//25 at 2346, Until Discontinued, Pain Severe (7-10) 0000 (Given - Provid er: Aundrea Beltre RN)0928 ([facility] Hold - Provider: [facility] [employer] - Reason: Unreviewed Transfer Orders)1027 ([facility] Unhold - Provider: Anastasiya Coates RN)1053 (Given - Provider: Anastasiya Coates RN) polyethylene glycol (GLYCOLAX) packet 17 g 17 g, Oral, DAILY PRN, Starting on Sat 4/25 at 2346, Until Discontinued, Constipation, First line therapy for constipation 0928 ([facility] Hold - Pro vider: [facility] [employer] - Reason: Unreviewed Transfer Orders)1027 ([facility] Unhold - Provider: Anastasiya Coates RN) potassium bicarb-citric acid (EFFER-K) effervescent tablet 40 mEq(Linked Group 5) 40 mEq, Oral, PRN, Starting on Sat 4/25 at 2346, Until Discontinued, Per Potassium Replacement [...] dilute if GI adverse effects occur. 927 ([facility] Hold - Pro vider: [facility] [employer] - Reason: Unreviewed Transfer Orders)102 ([facility] Unhold - Provider: Anastasiya Coates RN) potassium [...] half and each half swallowed separately. 927 ([facility] Hold - Pro vider: [facility] [employer] - Reason: Unreviewed Transfer Orders)1026 ([facility] Unhold - Provider: Anastasiya Coates RN) potassium [...] with CrCl less than 30 mL/min. 927 ([facility] Hold - Pro vider: [facility] [employer] - Reason: Unreviewed Transfer Orders)1027 ([facility] Unhold - Provider: Anastasiya Coates RN) prochlorperazine [...] 0832 (Given - Provid er: Anastasiya Coates RN)0928 ([facility] Hold - Provider: Tamy Autohold - Reason: Unreviewed Transfer Orders)1027 ([facility] Unhold - Provider: Anastasiya Coates RN) sterile [...] EVERY 6 HOURS PRN, Starting on Sat 4/25 at 2346, Until Discontinued, Pain Mild (1-3), allowed for higher pain score per patient request, Fever, For temp greater than 100.4 F (38 C), Administer if oral route cannot be used. Group 2: morphine (PF) injection 2 mgJump to med 2 mg, IntraVENous, EVERY 2 HOURS PRN, Starting on Sat 4/25 at 2346, Until Discontinued, Pain Moderate (4-6), [...] EVERY 2 HOURS PRN, Starting on Sat 4/25 at 2346, Until Discontinued, Pain Severe (7-10), [...] RN) 0901 (Not Given - Provider: Balwinder Ashton, FELA - Reason: Patient/family refused) 0817 (Not Given - Provider: Balwinder Ashton, FELA - Reason: Patient/family refused) sodium chloride flush [...] Orders)1744 (MAR Unhold - Provider: Balwinder Ashton RN)2033 (Given - Provider: Gretchen Tony) 0900 (Given [...] hypotension/falls. 0904 (Given - Provider: Yamel Leavitt)1440 (MAR [...] less into rate field of order. 1440 (MAR Hold - Provider: Tamy Autohold - Reason: Unreviewed Transfer Orders)1744 (MAR Unhold - Provider: Balwinder Ashton RN) acetaminophen (TYLENOL) tablet 650 mg 650 mg, Oral, EVERY 6 HOURS PRN, Starting on Julia 01/26/25 at 2128, Until Discontinued, Pain Mild (1-3), allowed for higher pain score per patient request, Maximum dose of acetaminophen is 4000 mg from all sources in 24 hours. 1440 (MAR Hold - Provider: Tamy Autohold - Reason: Unreviewed Transfer Orders)1744 (MAR Unhold - Provider: Balwinder Ashton RN) diatrizoate [...] RN)1329 (Given - Provider: Balwinder Ashton RN)1440 (MAR Hold - Provider: Mar Autohold - Reason: Unreviewed Transfer Orders)1744 (MAR Unhold - Provider: Balwinder Ashton RN)1840 (Given [...] 0359 (Given - Provider: Sabra Beard RN)1440 (MAR Hold - Provider: Mar [employer] - Reason: Unreviewed Transfer Orders)1744 (MAR Unhold - Provider: Balwinder Ashton RN)2033 (Given [...] Balwinder Ashton RN)1440 (DEC Hold - Provider: [facility] [employer] - Reason: Unreviewed Transfer Orders)1744 (DEC Unhold - Provider: Balwinder Ashton RN)1759 (Given - Provider: Balwinder Ashton RN) 0452 (Given - Provider: Gretchen Tony)1106 (Given - Provider: Balwinder Ashton RN)1723 (Given - Provider: Maryam Avila) 0141 (Given - Provider: Gretchen Tony)0812 (Given - Provider: Balwinder Ashtno RN) ondansetron (ZOFRAN) injection 4 mg(Linked Group 1) 4 mg, IntraVENous, EVERY 6 HOURS PRN, Starting on Julia 01/26/25 at 1726, Until Discontinued, Nausea, Vomiting, Administer if oral route cannot be used. 0806 (Given - Provider: Balwinder Ashton RN)1440 (DEC Hold - Provider: [facility] [employer] - Reason: Unreviewed Transfer Orders)1744 ([facility] Unhold - Provider: Balwinder Ashton RN) 1203 (Given - Provider: Maryam Avila) ondansetron (ZOFRAN-ODT) disintegrating tablet 4 mg(Linked Group 1) 4 mg, Oral, EVERY 8 HOURS PRN, Starting on Julia 01/26/25 at 1726, Until Discontinued, Nausea, Vomiting 0806 (See Alternative - Provider: Balwinder Ashton RN)1440 (DEC Hold - Provider: [facility] [employer] - Reason: Unreviewed Transfer Orders)1744 (DEC Unhold - Provider: Balwinder Ashton RN) 1203 [...] 0008 (Given - Provider: Sabra Beard RN)1440 (MAR Hold - Provider: Tamy [employer] - Reason: Unreviewed Transfer Orders)1744 (MAR Unhold - Provider: Balwinder Ashton RN)2033 (Given [...] Constipation, First line therapy for constipation 1440 (MAR Hold - Provider: Tamy Autohold - Reason: Unreviewed Transfer Orders)174 (MAR Unhold - Provider: Balwinder Ashton RN) prochlorperazine [...] 1330 (Given - Provider: Balwinder Ashton RN)1440 (MAR Hold - Provider: Tamy Autohold - Reason: Unreviewed Transfer Orders)1744 (MAR Unhold - Provider: Balwinder Ashton RN) sod [...] mL 5-40 mL, IntraVENous, PRN, Starting on Julia 425 at 1726, Until Discontinued, Line Care, After [...] or Central Line = 20 mL/lumen 1440 ([facility] Hold - Provider: Tamy Autohold - Reason: Unreviewed Transfer Orders)1744 ([facility] Unhold - Provider: Balwinder Ashton RN) Linked Groups Order Group 1: ondansetron (ZOFRAN-ODT) disintegrating tablet 4 mgJump to med 4 mg, Oral, EVERY 8 HOURS PRN, Starting on Julia 01/26/25 at 1726, Until Discontinued, Nausea, Vomiting Or ondansetron (ZOFRAN) injection 4 mgJump to med 4 mg, IntraVENous, EVERY 6 HOURS PRN, Starting on Julia 425 at 1726, Until Discontinued, Nausea, Vomiting, Administer [...] BE BASED ON THE PRIMARY CLINICAL RECORDS. [employer] provides no warranty or guarantee of the accuracy or completeness of information in this document.
--- OUTSIDE RECORDS SUMMARY | 2025-06-19 00:38 | XMS_ITS | Encounter Summary ---
Author Organization [facility] Address [address] [place] [address] Care Team Providers Care Gaming Host Name Role Phone Ignacio Das MD Primary Care Provider [phone] Encounter Details Date Type Department Care Team ([facility] Contact Info) Description 05/06/2023 Abstract [facility] [address] [place] [id number] Jefferson Gibbs DO [address] [place] [address] Social History Tobacco Use Types Packs/Day Years [...] Upcoming Encounters Date Type Department Care Team ([facility] Contact Info) Description 04/09/2026 9:00 AM EDT Office Visit [facility] [address] [place] [phone] Jefferson Gibbs DO [address] [place] [id number] 05/29/2026 1:15 PM EDT Office Visit [facility] [address] [place] [address] Alejandra Leiva MD [address] [facility] [address] [place] [address] documented as of this encounter Visit Diagnoses Not on filedocumented in this encounter Care Teams Gaming Host Relationship Specialty Start Date End Date Ignacio Das MD [address] [facility] [place] [address] PCP - General Family Medicine 04/13/23 documented as of this encounter
--- OUTSIDE RECORDS SUMMARY | 2025-06-19 00:38 | XMS_ITS | Encounter Summary ---
Author Organization [facility] Address [address] [place] [address] Care Team Providers Care Sales Development Manager Name Role Phone Ignacio Das MD Primary Care Provider [phone] Encounter Details Date Type Department Care Team ([facility] Contact Info) Description 04/30/2023 Abstract [facility] [address] [facility] [place] [phone] Jefferson Gibbs DO [address] [place] [address] Social History Tobacco Use Types Packs/Day Years [...] Upcoming Encounters Date Type Department Care Team ([facility] Contact Info) Description 04/09/2026 9:00 AM EDT Office Visit [place] [facility] [address] [place] [phone] Jefferson Gibbs DO [address] [place] [id number] 05/29/2026 1:15 PM EDT Office Visit [facility] [address] [place] [address] Alejandra Leiva MD [address] [facility] [address] [place] [address] documented as of this encounter Visit Diagnoses Not on filedocumented in this encounter Care Teams Sales Development Manager Relationship Specialty Start Date End Date Ignacio Das MD [address] [facility] [place] [address] PCP - General Family Medicine 04/13/23 documented as of this encounter
--- NOTE | 2025-06-19 01:26 | ED.LOWEXI1 ---
HPI HPI - Extremity Injury (Lower) General Chief Complaint: Extremity Injury, Lower Stated Complaint: Extremity Injury, Lower Time Seen by Provider: 06/19/25 01:12 Source: patient Mode of arrival: walk-in Limitations: no limitations History of Present Illness HPI Narrative: tripped over a bat bag injuring toes right foot a couple of hours ago. Still has pain. No swelling or deformity or other injury Related Data Home Medications ?Medication ?Instructions ?Recorded ?Confirmed estradiol 0.05 mg/24 hr weekly 1 patch transdermal .Weekly 05/05/25 05/05/25 transdermal patch meloxicam 15 mg tablet 15 mg PO DAILY 05/05/25 05/05/25 methenamine hippurate 1 gram tablet 1 g PO BID 05/05/25 05/05/25 tizanidine 4 mg tablet 8 mg PO DAILY 05/05/25 05/05/25 Previous Rx's ?Medication ?Instructions ?Recorded phenazopyridine 200 mg tablet 200 mg PO Q8H PRN pain 6 doses #6 10/02/24 (Pyridium) tabs ciprofloxacin HCl 500 mg tablet 500 mg PO BID #10 tabs 05/05/25 (Cipro) ketorolac 10 mg tablet 10 mg PO Q8H PRN pain 5 days #15 05/05/25 tabs promethazine 25 mg tablet 25 mg PO Q6H PRN nausea and 05/05/25 vomiting #20 tabs Allergies Allergy/AdvReac Type Severity Reaction Status Date / Time No Known Drug Allergies Allergy Verified 06/19/25 00:36 Opioid HPI Opioid Management Most Recent Pain and Opioid Data: Last Pain Scale 7 Today, 00:42 Ur Phencyclidine Scrn, (NEGATIVE) Negative 04/08/24, 15:00 Review of Systems ROS Status of ROS 10 or more systems reviewed and unremarkable except as noted in history and below [facility] Medical History (Updated 06/19/25 @ 01:31 by Seng Verdin MD) Anxiety and depression ?F41.9 - Anxiety disorder, unspecified (ICD-10) ?F32.A - Depression, unspecified (ICD-10) Kidney stones ?N20.0 - Calculus of kidney (ICD-10) Bipolar disorder ?F31.9 - Bipolar disorder, unspecified (ICD-10) Kidney stones ?N20.0 - Calculus of kidney (ICD-10) Surgical History (Updated 12/02/24 @ 17:36 by Tamiko Taylor) H/O: hysterectomy ?Z90.710 - Acquired absence of both cervix and uterus (ICD-10) History of ultrasound guided needle biopsy ?Z98.890 - Other specified postprocedural states (ICD-10) H/O local excision of skin lesion ?Z98.890 - Other specified postprocedural states (ICD-10) S/P extracorporeal shock wave therapy (03/2023) ?Z98.890 - Other specified postprocedural states (ICD-10) History of wisdom tooth extraction ?K08.409 - Partial loss of teeth, unspecified cause, unspecified class (ICD-10) H/O LEEP ?Z98.890 - Other specified postprocedural states (ICD-10) History of endometrial ablation ?Z98.890 - Other specified postprocedural states (ICD-10) S/P cystoscopy ?Z98.890 - Other specified postprocedural states (ICD-10) S/P ureteral stent placement ?Z96.0 - Presence of urogenital implants (ICD-10) H/O ureteroscopy ?Z98.890 - Other specified postprocedural states (ICD-10) History of cholecystectomy ?Z90.49 - Acquired absence of other specified parts of digestive tract (ICD-10) Family History Other Family history of hypertension Social History Within the past year, how often did you have a drink containing alcohol: monthly or less Smoking status: Never smoker Non-prescribed substance use: denies use 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 Highest level of school completed/degree received: Master's degree Are you now , , , , never or living with a partner: Little interest or pleasure in doing things: not at all Feeling down, depressed, or hopeless: not at all Gender Identity: female Exam Constitutional Vital Signs, click to edit/add: Last Vital Signs Temp 98.6 F 06/19/25 00:33 Pulse 89 06/19/25 00:33 Resp 18 06/19/25 00:33 BP 150/100 H 06/19/25 00:33 Pulse Ox 97 09/01/25 00:33 O2 Del Method Room Air 06/19/25 00:33 Common normals: no apparent distress, average body habitus, oriented x3, no limitations, healthy appearing and alert HENMT Common normals: normocephalic and head/scalp atraumatic Eye Common normals: EOMs intact bilaterally and conjunctivae normal Respiratory Common normals: normal respiratory effort, no retractions and no use of accessory muscles Extremity Common normals: normal to inspection Other: right foot appears normal. no swelling or discoloration. tenderness of her toes. right ankle exam is neg Neuro Common normals: oriented x3, CN's II-XII intact bilaterally and moves all extremities Psych Appearance: grossly normal Course Vital Signs Vital signs: Vital Signs Temperature 98.6 F 06/19/25 00:33 Pulse Rate 89 06/19/25 00:33 Respiratory Rate 18 06/19/25 00:33 Blood Pressure 150/100 H 06/19/25 00:33 Pulse Oximetry 97 06/19/25 00:33 Oxygen Delivery Method Room Air 06/19/25 00:33 Temperature 98.6 F 06/19/25 00:33 Pulse Rate 89 06/19/25 00:33 Respiratory Rate 18 06/19/25 00:33 Blood Pressure 150/100 H 06/19/25 00:33 Pulse Oximetry 97 06/19/25 00:33 Oxygen Delivery Method Room Air 06/19/25 00:33 MDM - Extremity Injury (Lower) MDM Narrative Medical decision making narrative: patient presents after tripping over a bat bag with her right foot a couple of hours ago. complains of pain. Does have tenderness of her toes. but no swelling or discoloration. xrays of the foot per my preliminary review are neg for acute fracture. Patient informed this is the preliminary reading. she is provided with a post op shoe and discharged home to follow up with her doctor Discharge Plan Discharge Chief Complaint: Extremity Injury, Lower Clinical Impression: Contusion of foot, right Patient Disposition: Home, Self-Care Prescriptions / Home Meds: No Action phenazopyridine [Pyridium] 200 mg tablet 200 mg PO Q8H PRN (Reason: pain) Qty: 6 0RF meloxicam 15 mg tablet 15 mg PO DAILY tizanidine 4 mg tablet 8 mg PO DAILY methenamine hippurate 1 gram tablet 1 g PO BID estradiol 0.05 mg/24 hr patch weekly 1 patch transdermal .Weekly ciprofloxacin HCl [Cipro] 500 mg tablet 500 mg PO BID Qty: 10 0RF ketorolac 10 mg tablet 10 mg PO Q8H PRN (Reason: pain) 5 Days Qty: 15 0RF promethazine 25 mg tablet 25 mg PO Q6H PRN (Reason: nausea and vomiting) Qty: 20 0RF Print Language: Swedish Instructions: Foot Contusion (ED) Additional Instructions: follow up with Dr Das next week. Referrals: Ignacio Das MD [Primary Care Provider, Family Practice] - 1 week
== END 2025-06-19 01:39 | disposition home or self-care (01) ==
PROVIDERS: Emergency Provider Internal Medicine; PCP Family Medicine
DX: S90.31XA Contusion of right foot, initial encounter (principal); W22.8XXA Striking against or struck by other objects, initial encounter; Z90.710 Acquired absence of both cervix and uterus; Z90.49 Acquired absence of other specified parts of digestive tract
CPT/HCPCS: 73630; 99283

== ENCOUNTER 2025-06-23 07:14 | Outpatient (OUT) | payer OTHER, SELFPAY ==
--- OUTSIDE RECORDS SUMMARY | 2024-05-09 04:30 | XMS_ITS ---
Author Organization [facility] Serv es Address [address] [place] [address] Care Team Providers Care Commercial Real Estate Paralegal Name Role Phone Iván Puckett Primary Care Provider [phone] Dulce Maria Grey Unavailable [phone] REASON FOR VISIT PROPHY Encounters Encounter Location Date Provider Diagnosis [place] [address] [place] [address] 05/09/2024 Dulce Maria Matthews Plan Of Treatment No Information Progress Notes * CORI BARRIGA LDOB: 1 (34 yo F)Acc No.[id number]:05/09/2024 Patient: Connor QUIROZ CORI Hyman Provider: Ladonna Baugh :1990 A ge:33 Y S ex:Female Date:05/09/2024 [address] [facility] Pcp:Iván Puckett Subjective: * Chief Complaints: * 1 . PROPHY. * Medical History: Objective: * Vitals: Assessment: Plan: * Treatment: * Images: * Electronic signature of Karissa Matthews on 06/23/2025 at 07:18 AM EDT Sign off status: Pending * Provider: Ladonna Baugh Date: 05/09/2024 Generated for Printi ng/Faxing/eTransmitting on: 0 06/23/2025 07:18 AM EDT
--- OUTSIDE RECORDS SUMMARY | 2025-05-23 05:15 | XMS_ITS ---
Author Organization The [facility] in [place] Address [address] [place] [address] Care Team Providers Care Hand Painter Name Role Phone Kendrick Das Primary Care Provider [phone] Allergies No Known Allergies Results Component Value Reference Range Notes CBC AUTO DIFF Reviewed date:05/24/2025 02:35:47 PM Interpretation: Performing Lab: Notes/Report: [facility] , White Blood Count 7.0 4.0-11.0 [...] 3/uL Performing Lab: see note ML - [facility] LB PROF 14(COMP METB) Reviewed date:05/24/2025 05:16:43 PM Interpretation: Performing Lab: Notes/Report: The [facility] , Sodium 142 136-145 mmol/L Potassium 3.4 [...] Performing Lab: see note ML - The [facility] LB Reason For Referral Diagnosis 1 Arthralgia (M25.50) Referral Organization [facility] Medicine Referring Provider First Name Kendrick Referring Provider Last Name Thiago Referring Provider Speciality Family [facility] andrew Referred Provider Keith Craig Referred Provider [...] Status W/U Status Risk Notes Problem Arthralgia (51227669) Arthralgia (M25.50) Active confirmed Vital Signs Weight 187.4 lbs 05/23/2025 Height 66 in 05/23/2025 Blood pressure systolic 140 mm Hg 05/23/20 25 Blood pressure diastolic 88 mm Hg 025 BMI 30.24 kg/m2 05/23/2025 Encounters Encounter Location Date Provider Diagnosis [facility] [address] [place] [address] 05/23/2025 Kendrick Das Arthralgia M25.5 0 Assessments Encounter Date Diagnosis (ICD Code) Assessment Notes Treatment Notes Treatment Clinical Notes Section Notes 05/23/2025 Arthralgia (ICD-10 - M25.50) Plan Of Treatment Pending Test Test Name Order Date RHEUMATOID PANEL 05/23/2025 SED RATE WESTERGREN 05/23/2025 Referrals Referral Date Details 05/23/2025 05/23/2025, Keith Craig Next Appt Details Provider Name:Kendrick Das, 10:00:00 AM, [address] [place], [address], Progress Notes * Diana BEAVER LDOB: 1 (34 yo F)Acc No.[id number]:05/23/2025 Progress Note Patient: Diana RATLIFF Provider: Walter Das ([facility]), :1990 A ge:34 Y S ex:Female Date:05/23/2025 Address:[place], [id number] Check In:08:59 AM ESTCheck O ut:09:35 AM [...] Modified On:09/07/2024 Status:confirmed N39.0 Acute UTI Modified On:10/06/2024 Status:confirmed N13.70 VUR (vesicoureteric reflux) Modified On:11/24/2024 Status:confirmed M54.16 Lumbar radiculopathy Modified On:03/23/2025 Status:confirmed N20.0 Altered urinary elim ination pattern due to calculus of kidney Modified On:04/26/2025 Status:confirmed Z46.6 Catheter (urine) calderon nge required Modified On:04/26/2025 Status:confirmed N28.89 Abnormal position of kidney Modified On:04/26/2025W/U Status:confirmed M25.50 Arthralgia Modified On:05/23/2025W/U Status:confirmed * Medical History: * Surgical History: C holecystectomy Right Renal Calculus 05/24/2020Cystoscopy, Left retrograde pyelogram, ureteral stent- Dr. Souza's Hysterectomy, Bilat Salpingectomy- Bernie 05/06/23urethral dilation Right laser lithotripsy - Dr Villa 11/2021ureteral stent placement on Left side 01/22/25Cystoscopy, Holmium Laser Lithotripsy, Lt stent replacement, Rt stent placement- Dr Desai 01/27/25 * Hospitalization/Major Diagno stic Procedure: M ultipkaylyn for kidney stones and stents * Family [...] Procedure Codes: * Preventive Medicine: Screenings/Counseling: B [place] ACTION PLAN Above Normal BMI Follow-up D ietary management education, guidance, and counseling * * Sign off status: Completed Visit Status: C HK (Check Out) true * Provider: Walter Das (TTC)MD Date: 0 05/23/2025 Generated for Printi ng/Faxing/eTransmitting on: 06/23/2025 07:17 AM EDT History and Physical Notes * [...]
--- OUTSIDE RECORDS SUMMARY | 2025-05-24 13:16 | XMS_ITS ---
Author Organization [facility] [place] Address [address] [place] [address] Care Team Providers Care Costume Mistress Name Role Phone Kendrick Das Primary Care Provider REASON FOR VISIT review labs- Medications Medication SIG (Take, Route, Frequency, Duration) Notes Start Date End Date Status Potassium Chloride ER 10 MEQ 1 tablet with food Orally Twice a day for 30 days 05/25/2025 Active Encounters Encounter Location Date Provider Diagnosis [facility] [address] [place] [address] 05/24/2025 Kendrick Das Plan Of Treatment Medication Medication Name Sig Start Date Stop Date Notes Potassium Chloride ER 10 MEQ 1 tablet wi th food Orally Twice a day for 30 days 05/25/2025 Next Appt Details Provider Name:Kendrick Das, 10:00:00 AM, [address] [place], [address], Progress Notes * Diana BEAVER LDOB: 1 (34 yo F)Acc No.[id number]:05/24/2025 Patient: Diana RATLIFF :1990 A ge:34 Y S ex:Female Address:[address] [place] [address], [address] * Refills Start Potassium Chloride ER Tablet Extended Release, 10 MEQ, Orally, 60, 1 tablet with food, Twice a day, 30 days, Refills=11 * true * Date: Generated for Meenakshi krishnan/Neisha/Trell on: 0 06/23/2025 07:17 AM EDT
--- OUTSIDE RECORDS SUMMARY | 2025-05-28 15:54 | XMS_ITS ---
Author Organization The [facility] in [place] Address [address] [place] [address] Care Team Providers Care Network Engineer Name Role Phone ThiagoKendrick Primary Care Provider REASON FOR VISIT lab results- something for yeast Medications Medication SIG (Take, Route, Frequency, Duration) Notes Start Date End Date Status Amoxicillin 500 MG 2 capsule Orally BID for 30 days 30 days is correct 05/29/2025 Active Diflucan 100 MG 1 tablet Orally naif y for 10 days 05/29/2025 Active Encounters Encounter Location Date Provider Diagnosis [facility] [address] [place] [address] 05/28/2025 Kendrick Das Arthralgia M25.5 0 Assessments [...] Date ANTI - DNASE B (STREPTOCOCCAL) ASO ([id number]), BLOOD 025 Next Appt Details Provider Name:Kendrick Das, 10:00:00 AM, [address] [place], [address], Progress Notes * NITHYA, Diana LDOB: 1 (34 yo F)Acc No.[id number]:05/28/2025 Patient: Diana RATLIFF :1990 A ge:34 Y S ex:Female Address:[address] [place] [address], [phone] * Refills Start Amoxicillin Capsule, 500 MG, [...] Date: Generated for Meenakshi krishnan/Neisha/Lindasmitting on: 0 06/23/2025 07:17 AM EDT
--- OUTSIDE RECORDS SUMMARY | 2025-06-07 10:30 | XMS_ITS ---
Author Organization [facility] in [place] Address [address] [place] [address] Care Team Providers Care Log Raft Worker Name Role Phone Kendrick Das Primary Care [...] 06/07/2025 Active Mupirocin 2 % 1 application Shirt Maker ally Twice a day for 5 days [...] Status W/U Status Risk Notes Problem Cellulitis ([id number]) Cellulitis (L03.90) Active confirmed Vital Signs Weight 185 lbs 06/07/2025 Height 66 in 06/07/2025 Blood pressure systolic 118 mm Hg 06/07/20 25 Blood pressure diastolic 82 mm Hg 025 BMI 29.86 kg/m2 06/07/2025 Encounters Encounter Location Date Provider Diagnosis [facility] [address] [place] [address] 06/07/2025 Kendrick Das Cellulitis L03.9 0 Assessments Encounter Date Diagnosis (ICD Code) Assessment Notes Treatment Notes Treatment Clinical Notes Section Notes 06/07/2025 Cellulitis (ICD-10 - L03.90) Plan Of Treatment Medication Medication Name Sig Start Date Stop Date Notes Doxycycline Monohydrate 100 MG 1 tablet Orally bid for 10 days 06/07/2025 Mupirocin 2 % 1 application Shirt Maker ally Twice a day for 5 days 06/07/2025 Next Appt Details Provider Name:Kendrick Das, 10:00:00 AM, [address] [place], [address], Progress Notes * Diana BEAVER LDOB: 1 (34 yo F)Acc No.[id number]:06/07/2025 Progress Note Patient: Diana RATLIFF L Provider: Walter Das ([facility])MD :1990 A ge:34 Y S ex:Female Date:06/07/2025 Address:[address] [place], [place] [id number] Check In:02:15 PM ESTCheck O ut:03:02 PM [...] Codes: 3 079F DIAST BP 80-89 MM [id number] SYST BP LT 130 MM HG * Preventive Medicine: Screenings/Counseling: B [place] ACTION PLAN Above Normal BMI Follow-up D ietary management education, guidance, and counseling * * Sign off status: Completed Visit Status: C HK (Check Out) true * Provider: Walter Das ([facility])MD Date: 06/07/2025 Generated for Meenakshi krishnan/Neisha/eTquiquesmitting on: 06/23/2025 07:17 AM EDT History and [...]
--- OUTSIDE RECORDS SUMMARY | 2025-06-16 09:45 | XMS_ITS ---
Author Organization [facility] in [place] Address [address] [place] [address] Care Team Providers Care Telecommunications Professional Name Role Phone Kendrick Das Primary Care [...] 01/23/2025 Active Mupirocin 2 % [address] Edger ally Twice a day for 5 days [...] a day for 30 days 03/15/2025 Active Puyqyfbtex-Rzjx-Vujndckuwr 20-2-10 % as directed Externally 06/16/2025 Activ [...] W/U Status Risk Notes Problem Cervical radiculopathy (95417242) Cervical radiculopathy (M54.12) Active confirmed Problem Abdominal pain (95119572) Abdominal pain (R10.9) Active confirmed Vital Signs Weight 184.2 lbs 06/16/2025 Height 66 in 06/16/2025 Blood pressure systolic 122 mm Hg 06/16/20 25 Blood pressure diastolic 78 mm Hg 025 BMI 29.73 kg/m2 06/16/2025 Encounters Encounter Location Date Provider Diagnosis [facility] [address] [place] [address] 06/16/2025 Kendrick Das Cervical radiculopat hy M54.12 [...] Ketoprofen 10 % as directed Externally 06/16/2025 Mrxbjrigod-Vfyb-Tsvtotdlyi 2 0-2-10 % as directed Externally 06/16/2025 Treatment Notes Assessment Notes Other Recommended to rest and use a heating pad on the area. Take NSAIDs for pain as needed Pending Test Test Name Order Date MRI CSPINE WO CON 06/16/2025 US ABD 06/16/2025 Next Appt Details Provider Name:Kendrick Das, 10:00:00 AM, [address] [place], [address], Progress Notes * Diana BEAVER LDOB: 1 (34 yo F)Acc No.[id number]:06/16/2025 Progress Note Patient: Diana RATLIFF Provider: Walter Das ([facility])MD :1990 A ge:34 Y S ex:Female Date:06/16/2025 Address:[place], [id number] Check In:01:32 PM ESTCheck O ut:02:22 PM EST Subjective: * Chief Complaints: * F /U MULTIPLE ISSUESIn last week had a spot derm removed a spotSpot still painful not looking betterSickness s/s not getting any betterNot eating much * HPI: G eneral: Had bx a [...] heezing d enies. M usculoskeletal: Comments S [facility] for details. N eurologic: Dizziness d enies. F ainting d enies. H eadache?denies. * Active Problem List J02.0 Streptococcal pharyn gitis Modified On:03/19/2023U Status:confirmed S93.412A Sprain of calcaneofi bular ligament of left ankle, initial encounter Modified On:03/19/2023 Status:confirmed N20.0 Kidney stones Modified On:03/19/2023U Status:confirmed Z00.00 Well adult Modified On:03/19/2023U Status:confirmed N12 Pyelonephritis Modified On:03/19/2023U Status:confirmed E66.3 Over weight Modified On:03/19/2023 Status:confirmed [...] On:05/23/2025 Status:confirmed L03.90 Cellulitis Modified On:06/07/2025 Status:confirmed M54.12 Cervical radiculopat hy Modified On:06/16/2025 Status:confirmed R10.9 Abdominal pain Modified On:06/16/2025 Status:confirmed * Medical History: * Surgical History: [...] a n onsmoker . * Medications: T akingDoxycycline Monohydrate 100 MG Tablet 1 tablet Orally bid Meloxicam 15 MG Tablet 1 tablet Orally Once a day Methenamine Hippurate 1 GM Tablet 1 tablet Orally Twice a day Mupirocin 2 % Ointment 1 application Externally Twice a day Potassium Chloride ER 10 MEQ Tablet Extended Release 1 tablet with food Orally Twice a day Promethazine HCl 25 MG Tablet 1 tablet as needed Orally q6h , Notes to Pharmacist: PRNtiZANidine HCl 4 MG Tablet 2 tabs Orally qhs Medication List reviewed and reconciled with the patientTaking Doxycycline Monohydrate 100 MG Tablet 1 tablet Orally bid Taking Meloxicam 15 MG Tablet 1 tablet Orally Once a day Taking Methenamine Hippurate 1 GM Tablet 1 tablet Orally Twice a day Taking Mupirocin 2 % Ointment 1 application Externally Twice a day Taking Potassium Chloride ER 10 MEQ Tablet Extended Release 1 tablet with food Orally Twice a day Taking Promethazine HCl 25 MG Tablet 1 tablet as needed Orally q6h , Notes to Pharmacist: PRNTaking tiZANidine HCl 4 MG Tablet 2 tabs Orally qhs Medication List reviewed and reconciled with the patient * Allergies: N .K.D.A.no[Allergies Verified] Objective: * Vitals: W t:184.2lbs, Ht: 66 [...] maging: US ABD 3. O thers Start Shahwtmvhc-Dpty-Uzvuzuraiu Cream, 20-2-10 %, as directed, Externally; S tart Ketoprofen Cream, 10 %, as directed, Externally. Notes: Recommended to rest and use a heating pad on the area. Take NSAIDs for pain as needed ? * Procedure Codes: * Preventive Medicine: Screenings/Counseling: B ME ACTION PLAN Above Normal BMI Follow-up D ietary management education, guidance, and counseling * * Sign off status: Completed Visit Status: C HK (Check Out) true * Provider: Walter Das ([facility])MD Date: 0 06/16/2025 Generated for Printi ng/Fawendyg/eTransmitting on: 0 06/23/2025 07:17 AM EDT History and Physical [...] General Examination GENERAL APPEARANCE: in no ac cher-ae heights distress, well developed, well nourished CARDIO: S1, S2 normal, no mu rmurs, rubs, gallops LUNGS: clear to auscultatio n bilaterally NEUROLOGIC: alert, oriented to t leonid, place, & person EXTREMITIES: no clubbing, cyanosi s, or edema MUSCULOSKELETAL: ____
--- OUTSIDE RECORDS SUMMARY | 2025-06-23 07:17 | XMS_ITS | Encounter Summary ---
Author Organization [facility] Address [address] [place] [address] Care Team Providers Care Railroad Maintenance Clerk Name Role Phone Ignacio Das MD Primary Care Provider [phone] Encounter Details Date Type Department Care Team (Late Contact Info) Description 12/29/2023 Clinisync Result Encounter [facility] External Department Unsolicited Jefferson Gibbs DO [address] [facility] [place] [address] Social History Tobacco Use Types Packs/Day Years [...] EDT Office Visit [facility] [address] [facility] [address] [phone] Jefferson Gibbs DO [address] [facility] [place] [address] 05/29/2026 1:15 PM EDT Office Visit [facility] [address] [place] [address] Alejandra Leiva MD [address] [place] [address] documented as of this encounter Procedures Procedure Name Priority Date/Time Associated Diagnosis Comments US GUIDED BREAST BIOPSY LT 12/29/2023 8:24 AM EDT documented in this encounter Results * US GUIDED BREAST BIOPSY LT (12/29/2023 8:24 AM EDT) Anatomical Region Laterality Modality Radiographic Megan ging 12/29/2023 8:24 AM EDT Narrative 12/29/2023 8:27 [place] [address] Ultrasound Report Signed Patient: DIANA BEAVER MR#: [id number] : 1990 Acct:[id number] Age/Sex: 33 / F ADM Date: 12/29/23 Loc: US Attending Dr: Jefferson Gibbs D.O. Ordering Physician: Jefferson Gibbs D.O. Date of Service: 12/29/23 Procedure(s): US breast vac bx w/ clip LT Accession Number(s): [id number] cc: Jefferson Gibbs D.O.; Ignacio Das M.D. [address] [address] Patient Name: DIANA BEAVER MRN: [id number] date: 1990 Sex: F Assigned Patient Location: Current Patient Location: US Accession/Order Number: [id number] Exam Date: 12/29/2023 07:20 Report Date: 12/29/2023 [...] M.D. Signed By: 12/29/23826 DD/ 3 TD/TT: Sizing Sponger: Procedure Note Radiology, Radiologist, MD - 12/29/2023 [place] [address] Ultrasound Report Signed Patient: DIANA BEAVER LMR#: [id number] : 1990Acct:[id number] Age/Sex: 33 / FADM Date: 12/29/23 Loc: US Attending Dr: Jefferson Gibbs D.O. Ordering Physician: Jefferson Gibbs D.O. Date of Service: 12/29/23 Procedure(s): US breast vac bx w/ clip LT Accession Number(s): [id number] cc: Jefferson Gibbs D.O.; Ignacio Das M.D. The [address] [id number] Patient Name: DIANA BEAVER MRN: [id number] date: 1990 Sex: F Assigned Patient Location: US Current Patient Location: US Accession/Order Number: [id number] Exam Date: 12/29/2023 07:20 Report Date: 12/29/2023 [...] Graff M.D. Signed By:12/29/23826 DD/ 3 TD/TT: Sizing Sponger: us Jefferson Bernie DO IMG XR PROCEDURES Final Result documented in this encounter Visit Diagnoses Not on filedocumented in this encounter Care Teams Railroad Maintenance Clerk Relationship Specialty Start Date End Date Ignacio Das MD [address] [place] [address] PCP - General Family Medicine 04/13/23 documented as of this encounter
--- OUTSIDE RECORDS SUMMARY | 2025-06-23 07:17 | XMS_ITS | Encounter Summary ---
Author Organization [facility] Address [address] [place] [address] Care Team Providers Care Despatch Clerk Name Role Phone Ignacio Das MD Primary Care Provider [phone] Encounter Details Date Type Department Care Team (Latest Contact Info) Description 04/18/2025 Results Follow-Up [facility] [address] [place] [address] Alejandra Leiva MD [address] [place] [address] Dermatopathology exam Social History [...] [address] [facility] [place] [phone] Jefferson Gibbs DO [address] [facility] [address] [place], [place] [phone] 05/29/2026 1:15 PM EDT Office Visit [facility] [address] [place] [address] Alejandra Leiva MD [address] [place] [address] documented as of this encounter Visit Diagnoses Not on filedocumented in this encounter Care Teams Despatch Clerk Relationship Specialty Start Date End Date Ignacio Das MD [address] [facility] [place] [phone] PCP - General Family Medicine 04/13/23 documented as of this encounter
--- OUTSIDE RECORDS SUMMARY | 2025-06-23 07:17 | XMS_ITS | Encounter Summary ---
Author Organization [facility] Address [address] [facility] [place] [address] Care Team Providers Care Clerk Of Court Name Role Phone Ignacio Das MD Primary Care Provider [phone] Encounter Details Date Type Department Care Team ([facility] Contact Info) Description 05/27/2023 Abstract [facility] [address] [place] [phone] Jefferson Gibbs DO [address] [place], [facility] Social History Tobacco Use Types Packs/Day Years [...] Visit [facility] [address] [place] [phone] Jefferson Gibbs DO [address] [place], [place] [address] 05/29/2026 1:15 PM EDT Office Visit [facility] [address] [place] [address] Alejandra Leiva MD [address] [place] [address] documented as of this encounter Visit Diagnoses Not on filedocumented in this encounter Care Teams Clerk Of Court Relationship Specialty Start Date End Date Ignacio Das MD [address] [place] [address] PCP - General Family Medicine 04/13/23 documented as of this encounter
--- OUTSIDE RECORDS SUMMARY | 2025-06-23 07:17 | XMS_ITS | Encounter Summary ---
Author Organization [facility] Address [address] [place] [address] Care Team Providers Care Vacuum Frame Operator Name Role Phone Ignacio Das MD Primary Care Provider [phone] Encounter Details Date Type Department Care Team (Late Contact Info) Description 12/29/2023 Clinisync Result Encounter [facility] External Department Unsolicited Jefferson Gibbs DO [address] [facility] [place] [address] Social History Tobacco Use Types Packs/Day Years [...] EDT Office Visit [facility] [facility] [address] [facility] [place] [phone] Jefferson Gibbs DO [address] [facility] [place] [address] 05/29/2026 1:15 PM EDT Office Visit [facility] [address] [place] [address] Alejandra Leiva MD [address] [place] [address] documented as of this encounter Procedures Procedure Name Priority Date/Time Associated Diagnosis Comments MM POST BIOPSY LT 12/29/2023 8:5 7 AM EDT documented in this encounter Results * MM POST BIOPSY LT (12/29/2023 8:57 AM EDT) Anatomical Region Laterality Modality Other 12/29/2023 8:57 AM EDT Narrative 12/29/2023 8:57 AM EDT The [place] [id number] Mammography Report Signed Patient: DIANA BEAVER MR#: [id number] : 1990 Acct:[id number] Age/Sex: 33 / F ADM Date: 12/29/23 Loc: US Attending Dr: Jefferson Gibbs D.O. Ordering Physician: Jefferson Gibbs D.O. Results: Date of Service: 12/29/23 Follow Up: Procedure(s): MM post biopsy LT Accession Number(s): [id number] cc: Jefferson Gibbs D.O.; Ignacio Das M.D. Patient Name: DIANA BEAVER MR#: [id number] : 1990 Exam Date: 12/29/2023 Ordering Doctor: [...] MD on 12/29/2023 at 08:56 Approved by: Anrdzej Perez MD on 12/29/2023 at 08:57 Dictated By: Andrzej Perez M.D. Signed By: 12/29/23 0857 DD/ 0857 TD/TT: Coal Unloader: Procedure Note Radiology, Radiologist, - 12/29/[address] [address] Mammography Report Signed Patient: DIANA BEAVER LMR#: [id number] : 1990Acct:[id number] Age/Sex: 33 / FADM Date: 12/29/23 Loc: US Attending Dr: Jefferson Gibbs D.O. Ordering Physician: Jefferson Gibbs D.O.Results: Date of Service: 12/29/23Follow Up: Procedure(s): MM post biopsy LT Accession Number(s): [id number] cc: Jefferson Gibbs D.O.; Ignacio Das M.D. Patient Name: DIANA BEAVER MR#: [id number] : 1990 Exam Date: 12/29/2023 Ordering Doctor: [...] M.D. Signed By:12/29/23 0857 DD/ 0857 TD/TT: Coal Unloader: Jefferson Gibbs DO [facility] Final Result documented in this encounter Visit Diagnoses Not on filedocumented in this encounter Care Teams Vacuum Frame Operator Relationship Specialty Start Date End Date Ignacio Das MD [facility] [place] [address] PCP - General Family Medicine 04/13/23 documented as of this encounter
--- OUTSIDE RECORDS SUMMARY | 2025-06-23 07:17 | XMS_ITS | Clinical Summary ---
Author Organization [facility] Address [address] [place] [address] Care Team Providers Care Customer Care Team Coach Name Role Phone Ignacio aDs MD Unavailable [phone] Social History Tobacco Use Types Packs/Day Years Used Date Smoking Tobacco: Never Assessed Area Deprivation Index Answer Date Corky rded National Score (1-100), lower number is lower ri sk 70 11/01/2022 State Score (1-10), lower number is lower risk N ot on file 11/01/2022 Data from: https://www.neighborhoodatlas.medicine.[facility].edu/. Last address used for calculation [address] [place] [address] 11/01/2022 Comments Unknown Sex and Gender Information [...] B Vaccine Completed 06/19/2004, 03/27/2004, 12/18/2003 Insurance [facility] MEDICAID Care Teams Customer Care Team Coach Relationship Specialty Start Date End Date Ignacio Das MD Referring Family Medicine 09/01/22
--- OUTSIDE RECORDS SUMMARY | 2025-06-23 07:17 | XMS_ITS | Encounter Summary ---
Author Organization [facility] Address [address] [place] [address] Care Team Providers Care Service Station Manager Name Role Phone Ignacio Das MD Primary Care Provider [phone] Encounter Details Date Type Department Care Team (Late Contact Info) Description 12/23/2023 Clinisync Result Encounter [facility] External Department Unsolicited Jefferson Gibbs DO [address] [facility] [place] [address] Social History Tobacco Use Types Packs/Day Years [...] EDT Office Visit [facility] [address] [place] [phone] Jefferson Gibbs DO [address] [facility] [address] 05/29/2026 1:15 PM EDT Office Visit [facility] [address] [place] [address] Alejandra Leiva MD [address] [place] [address] documented as of this encounter Procedures Procedure Name Priority Date/Time Associated Diagnosis Comments US BREAST LT LIMITED 12/23/2023 1:47 PM EST documented in this encounter Results * US BREAST LT LIMITED (12/23/2023 1:47 PM EST) Anatomical Region Laterality Modality Other 12/23/2023 1:47 PM EST Narrative 12/23/2023 1:48 [place] [address] Ultrasound Report Signed Patient: DIANA BEAVER MR#: [id number] : 1990 Acct:[id number] Age/Sex: 33 / F ADM Date: 12/23/23 Loc: MAMMO Attending Dr: Jefferson Gibbs D.O. Ordering Physician: Jefferson Gibbs D.O. Date of Service: 12/23/23 Procedure(s): US breast LT limited Accession Number(s): [id number] cc: Jefferson Gibbs D.O.; Ignacio Das M.D. Patient Name: DIANA BEAVER MR#: [id number] : 1990 Exam Date: 12/23/2023 Ordering Doctor: [...] Treatments None Family Cancers None LOCATION: [facility] BREAST COMPOSITION: Extremely dense, which lowers the [...] Signed By: 12/23/23 1348 DD/ 1347 TD/TT: Front Office Spec: Procedure Note Radiology, Radiologist, - 12/23/2023 [place] [address] Ultrasound Report Signed Patient: DIANA BEAVER LMR#: [id number] : 1990Acct:[id number] Age/Sex: 33 / FADM Date: 12/23/23 Loc: MAMMO Attending Dr: Jefferson Gibbs D.O. Ordering Physician: Jefferson Gibbs D.O. Date of Service: 12/23/23 Procedure(s): US breast LT limited Accession Number(s): [id number] cc: Jefferson Gibbs D.O.; Ignacio Das M.D. Patient Name: DIANA BEAVER MR#: [id number] : 1990 Exam Date: 12/23/2023 Ordering Doctor: [...] Treatments None Family Cancers None LOCATION: [facility] BREAST COMPOSITION: Extremely dense, which lowers the [...] M.D. Signed By:12/23/23 1348 DD/ 1347 TD/TT: Front Office Spec: [facility] DO [facility] Final Result documented in this encounter Visit Diagnoses Not on filedocumented in this encounter Care Teams Service Station Manager Relationship Specialty Start Date End Date Ignacio Das MD [address] [place] [address] PCP - General Family Medicine 04/13/23 documented as of this encounter
--- OUTSIDE RECORDS SUMMARY | 2025-06-23 07:17 | XMS_ITS | Encounter Summary ---
Author Organization [facility] Address [address] [place] [address] Care Team Providers Care Glove Pairer Name Role Phone Ignacio Das MD Primary Care Provider [phone] Encounter Details Date Type Department Care Team (Late Contact Info) Description 04/18/2025 Orders Only [facility] [address] [facility] [place] [address] Tana Shell LPN [address] [place] [address] Social History Tobacco Use Types Packs/Day Years [...] AM EDT Office Visit [facility] [address] [facility] [place] [address] Jefferson Gibbs DO [address] [place] [phone] 05/29/2026 1:15 PM EDT Office Visit [facility] [address] [place] [phone] Alejandra Leiva MD [address] [place] [address] documented as of this encounter Procedures Procedure [...] on filedocumented in this encounter Care Teams Glove Pairer Relationship Specialty Start Date End Date Ignacio Das MD [address] [place] [address] PCP - General Family Medicine 04/13/23 documented as of this encounter
--- OUTSIDE RECORDS SUMMARY | 2025-06-23 07:17 | XMS_ITS | Encounter Summary ---
Author Organization [facility] Address [address] [place] [address] Care Team Providers Care Bobbin Winder Tender Name Role Phone Ignacio Das MD Primary Care Provider [phone] Encounter Details Date Type Department Care Team (Latest Contact Info) Description 05/19/2025 Results Follow-Up [facility] [address] [place] [address] Alejandra Leiva MD [address] [place] [address] Dermatopathology exam Social History Tobacco [...] EDT Office Visit [facility] [address] [place] [phone] Jefferson Gibbs DO [address] [facility] [address] [place], [place] [phone] 05/29/2026 1:15 PM EDT Office Visit [facility] [address] [place] [address] Alejandra Leiva MD [address] [place] [address] documented as of this encounter Visit Diagnoses Not on filedocumented in this encounter Care Teams Bobbin Winder Tender Relationship Specialty Start Date End Date Ignacio Das MD [address] [facility] [place] [phone] PCP - General Family Medicine 04/13/23 documented as of this encounter
--- OUTSIDE RECORDS SUMMARY | 2025-06-23 07:17 | XMS_ITS | Patient Health Record ---
Author Organization The [facility] [place] Address [address] [place] [address] Care Team Providers Care Computer Network Engineer Name Role Phone Kendrick Das Primary Care Provider Adonis Sanchez Unavailable [phone] Allergies No Known Allergies Results Component Value Reference Range Notes MAGNESIUM Reviewed date:07/28/2024 07:31:04 PM Interpretation: Performing Lab: Notes/Report: [facility] [place] , Magnesium 1.5 1.8-2.4 mg/dL Performing Lab: see note ML - [facility] LB PHOSPHORUS Reviewed date:07/28/2024 07:31:04 PM Interpretation: Performing Lab: Notes/Report: [facility] [place] , Phosphorus 3.6 2.6-4.7 mg/dL Performing Lab: see note ML - [facility] LB VITAMIN D 25 [place] Reviewed date:07/28/2024 07:31:04 PM Interpretation: Performing Lab: Notes/Report: [facility] [place] , Vitamin D 21.7 <20 ng/mL Vit D deficient 20-<30 ng/mL Vit D insufficient 30-100 ng/mL Vit D sufficient >100 ng/mL Potential Toxicity Performing Lab: see note ML - [facility] LB Calcium, Ionized, Serum Reviewed date:07/29/2024 01:04:17 PM Interpretation: Performing Lab: Notes/Report: [facility] , Calcium, Ionized, Serum 5.2 4.5-5.6 mg/dL Performed at: - [facility] [id number] Steward/Stewardess Dining Room: Travis Menjivar PhD, Phone: [phone] Performing Lab: see note LC - [facility] LB AMMONIA Reviewed date:09/08/2024 02:54:07 PM Interpretation: Performing Lab: Notes/Report: [facility] , Ammonia <10 11-32 umol/L Performing Lab: see note ML - [facility] LB CBC AUTO DIFF Reviewed date:09/08/2024 02:54:07 PM Interpretation: Performing Lab: Notes/Report: [facility] , White Blood Count 6.0 4.0-11.0 10 [...] Performing Lab: see note ML - [facility] LB CRP Reviewed date:09/08/2024 02:54:07 PM Interpretation: Performing Lab: Notes/Report: [facility] , C Reactive Protein <0.50 <=0.50 mg/dL Performing Lab: see note ML - [facility] LB MAGNESIUM Reviewed date:09/08/2024 02:54:07 PM Interpretation: Performing Lab: Notes/Report: [facility] , Magnesium 1.6 1.8-2.4 mg/dL Performing Lab: see note - [facility] LB PROF 14(COMP METB) Reviewed date:09/08/2024 02:54:07 PM Interpretation: Performing Lab: Notes/Report: [facility] , Sodium 141 136-145 mmol/L Potassium 3.7 [...] Performing Lab: see note ML - [facility] LB UA DIP NONAUTO WO MICRO (810 [...] PM Interpretation: Performing Lab: Notes/Report: Source Facility: [place] [address] XRay Report Signed Patient: DIANA BARRIGA MR#: [id number] : 1990 Acct:[id number] Age/Sex: 34 / F ADM Date: 03/28/25 Loc: RAD Attending Dr: Domingo Das M.D. Ordering Physician: Domingo Das M.D. Date of Service: 03/28/25 Procedure(s): XR sacrum coccyx min 2V Accession Number(s): [id number] cc: Domingo Das M.D. [place] [address] Patient Name: DIANA BARRIGA MRN: [id number] date: 1990 Sex: F Assigned Patient Location: [facility] Current Patient Location: [facility] Accession/Order Number: [id number] Exam Date: 03/28/2025 08:29 Report Date: 03/28/2025 [...] Celis M.D. 03/28/2025 8:35 AM Dictation Location: [place] [address] Electronically authenticated by: [id number] Y Date: 03/28/2025 08:35 Dictated By: Imani Celis M.D. Signed By: 03/28/2537 DD/ 4 TD/TT: Mail Order Sorter: [place] [address] XRay Report Signed Patient: RAMIN BARRIGA MR#: [id number] : 1990 Acct:[id number] Age/Sex: 34 / F ADM Date: 03/28/25 Loc: RAD Attending Dr: Radha Das M.D. Ordering Physician: Domingo Das M.D. Date of Service: 03/28/25 Procedure(s): XR sac rum coccyx min 2V Accession Number(s): [id number] cc: Domingo Das M.D. [place] [address] Patient Name: DIANA BARRIGA MRN: [id number] date: 1990 Sex: F Assigned Patient Location: [facility] Current Patient Location: [facility] Accession/Order Numb er: [id number] Exam Date: 03/28/2025 08:29 Report Date: 03/28/2025 [...] Celis M.D. 03/28/2025 8:35 AM Dictation Location: [place] [address] Electronically authenticated by: [id number] Y Date: 03/28/2025 08:35 Dictated By: Imani Celis M.D. Signed By: 03/28/2537 DD/ TD/TT: Mail Order Sorter: CBC AUTO DIFF Reviewed date:05/24/2025 02:35:47 PM Interpretation: Performing Lab: Notes/Report: [facility] , White Blood Count 7.0 [...] 3/uL Performing Lab: see note ML - [facility] LB PROF 14(COMP METB) Reviewed date:05/24/2025 05:16:43 PM Interpretation: Performing Lab: Notes/Report: [facility] , Sodium 142 136-145 mmol/L Potassium 3.4 [...] Performing Lab: see note ML - [facility] LB CBC AUTO DIFF Reviewed date:12/03/2024 02:14:40 PM Interpretation: Performing Lab: Notes/Report: [facility] , White Blood Count 7.3 4.0-11.0 10 [...] 3/uL Performing Lab: see note ML - [facility] LB LACTATE or LACTIC ACID Reviewed date:12/03/2024 02:14:40 PM Interpretation: Performing Lab: Notes/Report: [facility] , Lactate/Lactic Acid 1.1 0.4-2.0 mmol/L Performing Lab: see note ML - [facility] LB LIPASE Reviewed date:12/03/2024 02:14:40 PM Interpretation: Performing Lab: Notes/Report: [facility] , Lipase 29.0 16.0-77.0 U/L Performing Lab: see note - [facility] LB PROF 14(COMP METB) Reviewed date:12/03/2024 02:14:40 PM Interpretation: Performing Lab: Notes/Report: [facility] , Sodium 142 136-145 mmol/L Potassium 3.2 [...] 1.1 Performing Lab: see note ML - [facility] LB UA Micro, reflex to culture Reviewed date:12/03/2024 02:14:40 PM Interpretation: Performing Lab: Notes/Report: [facility] , Color Urine DK. ORANGE YELLOW Clarity Urine CLEAR CLEAR Specific [place] Urine <=1.005 1.005-1.025 pH Urine 6.5 5.0-9.0 [...] SEEN NONE SEEN #/LPF Urine Culture Indicated YES-[facility] Performing Lab: see note ML - [facility] LB FL VOIDING URETHROCYSTOGRAM S AND I Reviewed date:01/22/2025 03:38:47 PM Interpretation: Performing Lab: Notes/Report: EXAMINATION: Performed at: [facility] [employer] [address] [place] [address] Performed at: CBC AUTO DIFF Reviewed date:05/06/2025 03:21:39 PM Interpretation: Performing Lab: Notes/Report: [facility] , White Blood Count 6.8 4.0-11.0 10 [...] Performing Lab: see note ML - [facility] LB PROF CHEM 8 (BAS METB) Reviewed date:05/06/2025 03:21:39 PM Interpretation: Performing Lab: Notes/Report: [facility] , Sodium 144 136-145 mmol/L Potassium 3.4 [...] Performing Lab: see note ML - [facility] LB UA (CLEAN or CATCH) COMMERCIAL PEST CONTROL REPRESENTATIVE or M ICRO IF IND. Reviewed date:05/06/2025 03:21:39 PM Interpretation: Performing Lab: Notes/Report: [facility] , Color Urine LT. YELLOW YELLOW Clarity Urine CLOUDY CLEAR Specific [place] Urine 1.015 1.005-1.025 pH Urine 7.5 5.0-9.0 Protein Urine NEGATIVE NEG/TRACE mg/dL Glucose Urine UA NEGATIVE NEGATIVE mg/dL Bilirubin Urine NEGATIVE NEGATIVE Ketones Urine NEGATIVE NEGATIVE mg/dL Blood Urine TRACE-I NEGATIVE Nitrite Urine NEGATIVE NEGATIVE Urobilinogen Urine 0.2 0.2-1.0 EU/dL Leukocyte Esterase Urine MODERATE NEGATIVE Urine Microscopic Indicated YES Performing Lab: see note ML - [facility] LB URINE MICROSCOPIC ONLY Reviewed date:05/06/2025 03:21:39 PM Interpretation: Performing Lab: Notes/Report: [facility] , WBC Urine 5-10 NONE SEEN #/HPF RBC Urine 2-5 0-2 #/HPF Bacteria Urine LARGE NONE SEEN #/HPF Mucus Urine NONE SEEN NONE SEEN Squamous Epithelial Cell Urine FEW NONE/RARE #/LPF Crystals Seen? None Seen None Seen #/HPF Cast Seen? NONE SEEN NONE SEEN #/LPF Urine Culture Indicated YES-[facility] Performing Lab: see note ML - [facility] LB CT abdomen pelvis wo con Reviewed date:05/06/2025 03:21:39 PM Interpretation: Performing Lab: Notes/Report: Source Facility: [place] [address] CT Scan Report Signed Patient: DIANA BARRIGA MR#: [id number] : 1990 Acct:[id number] Age/Sex: 34 / F ADM Date: 05/05/25 Loc: ER Attending Dr: Ordering Physician: Herman Hay D.O. Date of Service: 05/05/25 Procedure(s): CT abdomen pelvis wo con Accession Number(s): [id number] cc: Domingo Das M.D. [place] [address] Patient Name: DIANA BARRIGA MRN: [id number] date: 1990 Sex: F Assigned Patient Location: ER Current Patient Location: ER Accession/Order Number: [id number] Exam Date: 05/05/2025 21:09 Report Date: 05/05/2025 [...] Conley M.D. 05/05/2025 9:15 PM Dictation Location: [place] [address] Electronically authenticated by: [id number] Y Date: 05/05/2025 21:15 Dictated By: Enrique Conley M.D. Signed By: 05/05/252117 DD/ 14 TD/TT: Mail Order Sorter: [place] [address] CT Scan Report Signed Patient: RAMIN BARRIGA MR#: [id number] : 1990 Acct:[id number] Age/Sex: 34 / F ADM Date: 05/05/25 Loc: ER Attending Dr: Ordering Physician: Herman Hay D.O. Date of Service: 05/05/25 Procedure(s): CT abd omen pelvis wo con Accession Number(s): [id number] cc: Domingo Das M.D. [address] [address] Patient Name: DIANA BARRIGA MRN: [id number] date: 1990 Sex: F Assigned Patient Location: ER Current Patient Location: ER Accession/Order Numb er: [id number] Exam Date: 05/05/2025 21:09 Report Date: 05/05/2025 [...] Conley M.D. 05/05/2025 9:15 PM Dictation Location: [place] [address] Electronically authenticated by: [id number] Y Date: 05/05/2025 21:15 Dictated By: Enrique Conley M.D. Signed By: 05/05/252117 DD/ 14 TD/TT: Mail Order Sorter: MR lumbar spine wo con Reviewed date:05/24/2025 05:16:43 PM Interpretation: Performing Lab: Notes/Report: Source Facility: [place] [address] Magnetic Resonance Report Signed Patient: DIANA BARRIGA MR#: [id number] : 1990 Acct:[id number] Age/Sex: 34 / F ADM Date: 05/24/25 Loc: MRI Attending Dr: Domingo Das M.D. Ordering Physician: Domingo Das M.D. Date of Service: 05/24/25 Procedure(s): MR lumbar spine wo con Accession Number(s): [id number] cc: Domingo Das M.D. [place] [address] Patient Name: DIANA BARRIGA MRN: [id number] date: 1990 Sex: F Assigned Patient Location: MRI Current Patient Location: MRI Accession/Order Number: [id number] Exam Date: 05/24/2025 15:59 Report Date: 05/24/2025 [...] fissure. There is moderate severe facet arthropathy. Cxpw-jn-qukdcnzi right neural foraminal narrowing and mild left [...] Mcintyre M.D. 05/24/2025 4:09 PM Dictation Location: [place] [address] Electronically authenticated by: [id number] Y Date: 05/24/2025 16:09 Dictated By: Jaime Mcintyre M.D. Signed By: 05/24/25 1611 DD/ 1609 TD/TT: Mail Order Sorter: [place] [address] Magnetic Resonance Report Signed Patient: RAMIN BARRIGA MR#: [id number] : 1990 Acct:[id number] Age/Sex: 34 / F ADM Date: 05/24/25 Loc: MRI Attending Dr: Radha Das M.D. Ordering Physician: Domingo Das M.D. Date of Service: 05/24/25 Procedure(s): MR lum bar spine wo con Accession Number(s): [id number] cc: Domingo Das M.D. [place] [id number] Patient Name: DIANA BARRIGA MRN: [id number] date: 1990 Sex: F Assigned Patient Location: MRI Current Patient Location: MRI Accession/Order Numb er: [id number] Exam Date: 05/24/2025 15:59 Report Date: 05/24/2025 [...] fissure. There is moderate severe facet arthropathy. Hxky-nx-jobosuoh rig ht neural foraminal narrowing and mild [...] Mcintyre M.D. 05/24/2025 4:09 PM Dictation Location: [place] [address] Electronically authenticated by: [id number] Y Date: 05/24/2025 16:09 Dictated By: Faith Mcintyre M.D. Signed By: 05/24/25 1611 DD/ 1609 TD/TT: Mail Order Sorter: Antistreptolysin O Ab Reviewed date:05/28/2025 07:56:46 PM Interpretation: Performing Lab: Notes/Report: [facility] , Antistreptolysin O Ab 473.7 0.0-200.0 IU/mL Performed at: [address] [id number] Steward/Stewardess Dining Room: Travis Menjivar PhD, Phone: [phone] Performing Lab: see note - [facility] LB Erythrocyte Sedimentation Ra te Reviewed date:05/24/2025 05:16:43 PM Interpretation: Performing Lab: Notes/Report: [facility] , Erythrocyte Sedimentation Rate 19 <=20 mm/hr Performing Lab: see note ML - [facility] LB URIC ACID SERUM Reviewed date:05/24/2025 05:16:43 PM Interpretation: Performing Lab: Notes/Report: [facility] , Uric Acid 4.8 2.6-6.0 mg/dL Performing Lab: see note ML - [facility] LB RHEUMATOID FACTOR Reviewed date:05/28/2025 07:56:46 PM Interpretation: Performing Lab: Notes/Report: [facility] , Rheumatoid Factor (RF) <10.0 <14.0 IU/mL Performing Lab: see note [facility] LB CRP Reviewed date:05/24/2025 05:16:43 PM Interpretation: Performing Lab: Notes/Report: [facility] , C Reactive Protein <0.50 <=0.50 mg/dL Performing Lab: see note ML - [facility] LB JAIMIE by IFA Reviewed date:05/28/2025 07:56:46 PM Interpretation: Performing Lab: Notes/Report: [facility] , Antinuclear Antibodies, IFA Negative . Negative <1:80 Borderline 1:80 Positive >1:80 ICAP nomenclature: AC-0 For more information about Hep-2 cell patterns use ANApatterns.org, the official website for the International Consensus on Antinuclear Antibody (JAIMIE) Patterns (ICAP). Performed at: [address] [id number] Steward/Stewardess Dining Room: Travis Menjivar PhD, Phone: [phone] Performing Lab: see note [facility] Urine Culture - [facility] Reviewed date:05/08/2025 02:50:28 PM Interpretation: Performing Lab: Notes/Report: [facility] , Urine Culture - [facility] See Below For Report Urine Culture - [facility] Testing performed at [facility] O:CITFRC Isolated Urine Culture - [facility] Organism Comments Organism: 1.1 Antibiotic Interpretation ANASTASIA Status Urine Culture - [facility] [address] [place] [address] Urine Culture - [facility] Testing performed at [facility] O:CITFRC Isolated Urine Culture - [facility] Organism Comments Organism: 1.1 Antibiotic Interpretation ANASTASIA Status Urine Culture - [facility] See Below For Report Urine Culture - [facility] Testing performed at [facility] O:CITFRC Isolated Urine Culture - [facility] Organism Comments Organism: 1.1 Antibiotic Interpretation ANASTASIA Status Urine Culture - [facility] See Below For Report Urine Culture - [facility] Testing performed at [facility] O:CITFRC Isolated Urine Culture - [facility] Organism Comments Organism: 1.1 Antibiotic Interpretation ANASTASIA Status Urine Culture - [facility] 75,000 CFU/ML Urine Culture - [facility] Testing performed at [facility] O:CITFRC Isolated Urine Culture - [facility] Organism Comments Organism: 1.1 Antibiotic Interpretation ANASTASIA Status Urine Culture - [facility] See Below For Report Urine Culture - [facility] Testing performed at [facility] O:CITFRC Isolated Urine Culture - [facility] Organism Comments Organism: 1.1 Antibiotic Interpretation ANASTASIA Status Urine Culture - [facility] Amikacin S F Urine Culture - [facility] Testing performed at [facility] O:CITFRC Isolated Urine Culture - [facility] Organism Comments Organism: 1.1 Antibiotic Interpretation ANASTASIA Status Urine Culture - [facility] Aztreonam I F Urine Culture - [facility] Testing performed at [facility] O:CITFRC Isolated Urine Culture - [facility] Organism Comments Organism: 1.1 Antibiotic Interpretation ANASTASIA Status Urine Culture - [facility] Ceftazidime I F Urine Culture - [facility] Testing performed at [facility] O:CITFRC Isolated Urine Culture - [facility] Organism Comments Organism: 1.1 Antibiotic Interpretation ANASTASIA Status Urine Culture - [facility] Ceftazidime/Avibact am S F Urine Culture - [facility] Testing performed at [facility] O:CITFRC Isolated Urine Culture - [facility] Organism Comments Organism: 1.1 Antibiotic Interpretation ANASTASIA Status Urine Culture - [facility] Ciprofloxacin S F Urine Culture - [facility] Testing performed at [facility] O:CITFRC Isolated Urine Culture - [facility] Organism Comments Organism: 1.1 Antibiotic Interpretation ANASTASIA Status Urine Culture - [facility] Ertapenem S F Urine Culture - [facility] Testing performed at [facility] O:CITFRC Isolated Urine Culture - [facility] Organism Comments Organism: 1.1 Antibiotic Interpretation ANASTASIA Status Urine Culture - [facility] Gentamicin S F Urine Culture - [facility] Testing performed at [facility] O:CITFRC Isolated Urine Culture - [facility] Organism Comments Organism: 1.1 Antibiotic Interpretation ANASTASIA Status Urine Culture - [facility] Levofloxacin S F Urine Culture - [facility] Testing performed at [facility] O:CITFRC Isolated Urine Culture - [facility] Organism Comments Organism: 1.1 Antibiotic Interpretation ANASTASIA Status Urine Culture - [facility] Meropenem S F Urine Culture - [facility] Testing performed at [facility] O:CITFRC Isolated Urine Culture - [facility] Organism Comments Organism: 1.1 Antibiotic Interpretation ANASTASIA Status Urine Culture - [facility] Nitrofurantoin S F Urine Culture - [facility] Testing performed at [facility] O:CITFRC Isolated Urine Culture - [facility] Organism Comments Organism: 1.1 Antibiotic Interpretation ANASTASIA Status Urine Culture - [facility] Tetracycline S F Urine Culture - [facility] Testing performed at [facility] O:CITFRC Isolated Urine Culture - [facility] Organism Comments Organism: 1.1 Antibiotic Interpretation ANASTASIA Status Urine Culture - [facility] Tigecycline S F Urine Culture - [facility] Testing performed at [facility] O:CITFRC Isolated Urine Culture - [facility] Organism Comments Organism: 1.1 Antibiotic Interpretation ANASTASIA Status Urine Culture - [facility] Tobramycin S F Urine Culture - [facility] Testing performed at [facility] O:CITFRC Isolated Urine Culture - [facility] Organism Comments Organism: 1.1 Antibiotic Interpretation ANASTASIA Status Urine Culture - [facility] Cefepime S F Urine Culture - [facility] Testing performed at [facility] O:CITFRC Isolated Urine Culture - [facility] Organism Comments Organism: 1.1 Antibiotic Interpretation ANASTASIA Status Urine Culture - [facility] Ceftriaxone I F Urine Culture - [facility] Testing performed at [facility] O:CITFRC Isolated Urine Culture - [facility] Organism Comments Organism: 1.1 Antibiotic Interpretation ANASTASIA Status Urine Culture - [facility] Piperacillin/Tazoba ctam I F Urine Culture - [facility] Testing performed at [facility] O:CITFRC Isolated Urine Culture - [facility] Organism Comments Organism: 1.1 Antibiotic Interpretation ANASTASIA Status Urine Culture - [facility] Trimethoprim/Sulfa R F Urine Culture - [facility] Testing performed at [facility] O:CITFRC Isolated Urine Culture - [facility] Organism Comments Organism: 1.1 Antibiotic Interpretation ANASTASIA Status Performing Lab: see note ML - [facility] LB SEE REPORT - Clerk Supervisor Id information not found for OBX-specific oil producer legend XR lumbar spine min 4V Reviewed date:03/28/2025 04:31:58 PM Interpretation: Performing Lab: Notes/Report: Source Facility: [facility] [place] [address] [place] [address] XRay Report Signed Patient: DIANA BARRIGA MR#: [id number] : 1990 Acct:[id number] Age/Sex: 34 / F ADM Date: 03/28/25 Loc: ALLYN Attending Dr: Domingo Das M.D. Ordering Physician: Domingo Das M.D. Date of Service: 03/28/25 Procedure(s): XR lumbar spine min 4V Accession Number(s): [id number] cc: Domingo Das M.D. [place] [address] Patient Name: DIANA BARRIGA MRN: [id number] date: 1990 Sex: F Assigned Patient Location: [facility] Current Patient Location: [facility] Accession/Order Number: [id number] Exam Date: 03/28/2025 08:29 Report Date: 03/28/2025 [...] Celis M.D. 03/28/2025 8:35 AM Dictation Location: [place] [address] Electronically authenticated by: [id number] Y Date: 03/28/2025 08:35 Dictated By: Imani Celis M.D. Signed By: 03/28/2538 DD/ 4 TD/TT: Mail Order Sorter: [place] [address] XRay Report Signed Patient: RAMIN BARRIGA MR#: [id number] : 1990 Acct:[id number] Age/Sex: 34 / F ADM Date: 03/28/25 Loc: RAD Attending Dr: Radha Das M.D. Ordering Physician: Domingo Das M.D. Date of Service: 03/28/25 Procedure(s): XR lum bar spine min 4V Accession Number(s): [id number] cc: Domingo Das M.D. [place] [address] Patient Name: DIANA BARRIGA MRN: [id number] date: 1990 Sex: F Assigned Patient Location: [facility] Current Patient Location: [facility] Accession/Order Numb er: [id number] Exam Date: 03/28/2025 08:29 Report Date: 03/28/2025 [...] Celis M.D. 03/28/2025 8:35 AM Dictation Location: [place] [address] Electronically authenticated by: [id number] Y Date: 03/28/2025 08:35 Dictated By: Imani Celis M.D. Signed By: 03/28/2538 DD/ 4 TD/TT: Mail Order Sorter: PRINCESS TAVERAS SURGICAL PROCEDUR ES Reviewed date:03/28/2025 04:31:58 PM Interpretation: Performing Lab: Notes/Report: Radiology exam is complete. No Radiologist dictation. Please follow up with ordering provider. Performed at: [facility] [employer] [address] Performed at: NM KIDNEY W FLOW AND FUNCTIO N W PHARMACOLOGICAL INTERVENTION Reviewed date:01/22/2025 03:38:47 PM Interpretation: Performing Lab: Notes/Report: EXAMINATION: NM KIDNEY W FLOW AND FUNCTION W PHARMACOLOGICAL INTERVENTION Performed at: [address] [address] Performed at: XR abdomen 1V Reviewed date:12/03/2024 02:14:40 PM Interpretation: Performing Lab: Notes/Report: Source Facility: [place] [address] [place] [address] XRay Report Signed Patient: DIANA BARRIGA MR#: [id number] : 1990 Acct:[id number] Age/Sex: 34 / F ADM Date: 12/02/24 Loc: ER Attending Dr: Ordering Physician: Ninoska Leonard Date of Service: 12/02/24 Procedure(s): XR abdomen 1V Accession Number(s): [id number] cc: Domingo Das M.D.; Ninoska Leonard [place] [id number] Patient Name: DIANA BARRIGA MRN: [id number] date: 1990 Sex: F Assigned Patient Location: ER Current Patient Location: Accession/Order Number: [id number] Exam Date: 12/02/2024 18:12 Report Date: 12/02/2024 [...] M.D. Signed By: 12/02/242008 DD/ 06 TD/TT: Mail Order Sorter: [place] [address] XRay Report Signed Patient: RAMIN BARRIGA MR#: [id number] : 1990 Acct:[id number] Age/Sex: 34 / F ADM Date: 12/02/24 Loc: ER Attending Dr: Ordering Physician: Ninoska Leonard Date of Service: 12/02/24 Procedure(s): XR abd omen 1V Accession Number(s): [id number] cc: Domingo Das M.D. ; Ninoska Leonard [address] [address] Patient Name: DIANA BARRIGA MRN: [id number] date: 1990 Sex: F Assigned Patient Location: ER Current Patient Location: Accession/Order Numb er: [id number] Exam Date: 12/02/2024 18:12 Report Date: 12/02/2024 [...] M.D. Signed By: 12/02/242008 DD/ 06 TD/TT: Mail Order Sorter: Urine Culture - [facility] Reviewed date:12/07/2024 07:22:21 PM Interpretation: Performing Lab: Notes/Report: [facility] , Urine Culture - [facility] See Below For Report Urine Culture - [facility] 30,000 colonies/ml mixed Urine Culture - [facility] bacterial skin contaminants Urine [facility] 30,000 colonies/ml mixed Urine Culture - [facility] 2 Days Urine Culture - [facility] 30,000 colonies/ml mixed Urine [facility] Urine [facility] - [facility] 30,000 colonies/ml mixed Urine Culture - [facility] Testing performed a [facility] Urine Culture - [facility] 30,000 colonies/ml mixed [facility] [address] [place] [address] Urine Culture - [facility] 30,000 colonies/ml mixed Performing Lab: see note ML - [facility] LB URINE MICROSCOPIC ONLY Reviewed date:10/02/2024 08:18:34 PM Interpretation: Performing Lab: Notes/Report: [facility] , WBC Urine 5-10 NONE SEEN #/HPF RBC Urine 0-2 0-2 #/HPF Bacteria Urine SMALL NONE SEEN #/HPF Mucus Urine TRACE NONE SEEN Squamous Epithelial Cell Urine FEW NONE/RARE #/LPF Crystals Seen? None Seen None Seen #/HPF Amorphous Sediment Urine FEW Cast Seen? NONE SEEN NONE SEEN #/LPF Urine Culture Indicated YES Performing Lab: see note ML - [facility] LB UA (CLEAN or CATCH) COMMERCIAL PEST CONTROL REPRESENTATIVE or M ICRO IF IND. Reviewed date:10/02/2024 08:18:34 PM Interpretation: Performing Lab: Notes/Report: [facility] , Color Urine LT. YELLOW YELLOW Clarity Urine CLOUDY CLEAR Specific [place] Urine 1.020 1.005-1.025 pH Urine 7.5 5.0-9.0 Protein Urine NEGATIVE NEG/TRACE mg/dL Glucose Urine UA NEGATIVE NEGATIVE mg/dL Bilirubin Urine NEGATIVE NEGATIVE Ketones Urine NEGATIVE NEGATIVE mg/dL Blood Urine NEGATIVE NEGATIVE Nitrite Urine NEGATIVE NEGATIVE Urobilinogen Urine 1.0 0.2-1.0 EU/dL Leukocyte Esterase Urine MODERATE NEGATIVE Urine Microscopic Indicated YES Performing Lab: see note ML - [facility] LB CT abdomen pelvis wo con Reviewed date:09/28/2024 07:53:59 PM Interpretation: Performing Lab: Notes/Report: Source Facility: [place] [address] CT Scan Report Signed Patient: DIANA BARRIGA MR#: [id number] : 1990 Acct:[id number] Age/Sex: 34 / F ADM Date: 09/28/24 Loc: ER Attending Dr: Ordering Physician: Stephanie Ramirez Date of Service: 09/28/24 Procedure(s): CT abdomen pelvis wo con Accession Number(s): [id number] cc: Domingo Das M.D. [place] [address] Patient Name: DIANA BARRIGA MRN: [id number] date: 1990 Sex: F Assigned Patient Location: ER Current Patient Location: ER Accession/Order Number: [id number] Exam Date: 09/28/2024 15:52 Report Date: 09/28/2024 [...] Signed By: 09/28/24 1631 DD/ 1628 TD/TT: Mail Order Sorter: [place] [address] CT Scan Report Signed Patient: RAMIN BARRIGA MR#: [id number] : 1990 Acct:[id number] Age/Sex: 34 / F ADM Date: 09/28/24 Loc: ER Attending Dr: Ordering Physician: Stephanie Ramirez Date of Service: 09/28/24 Procedure(s): CT abd omen pelvis wo con Accession Number(s): [id number] cc: Domingo Das M.D. [address] [address] Patient Name: DIANA BARRIGA MRN: [id number] date: 1990 Sex: F Assigned Patient Location: ER Current Patient Location: ER Accession/Order Numb er: [id number] Exam Date: 4 15:52 Report Date: 09/28/2024 16:28 At the [...] Signed By: 09/28/24 1631 DD/ 1628 TD/TT: Mail Order Sorter: Manual Differential Reviewed date:09/28/2024 07:53:59 PM Interpretation: Performing Lab: Notes/Report: [facility] , Segmented Neutrophils % Manual 37.0 43.0-75.0 [...] 3/uL Performing Lab: see note ML - [facility] LB URINE MICROSCOPIC ONLY Reviewed date:09/28/2024 07:53:59 PM Interpretation: Performing Lab: Notes/Report: [facility] , WBC Urine 50-75 NONE SEEN #/HPF RBC Urine 2-5 0-2 #/HPF Bacteria Urine LARGE NONE SEEN #/HPF Mucus Urine MODERATE NONE SEEN Squamous Epithelial Cell Urine FEW NONE/RARE #/LPF Crystals Seen? None Seen None Seen #/HPF Cast Seen? NONE SEEN NONE SEEN #/LPF Urine Culture Indicated YES Performing Lab: see note ML - [facility] LB UA (CLEAN or CATCH) COMMERCIAL PEST CONTROL REPRESENTATIVE or M ICRO IF IND. Reviewed date:09/28/2024 07:53:59 PM Interpretation: Performing Lab: Notes/Report: [facility] , Color Urine LT. YELLOW YELLOW Clarity Urine SL CLOUDY CLEAR Specific [place] Urine 1.020 1.005-1.025 pH Urine 6.5 5.0-9.0 Protein Urine 30 NEG/TRACE mg/dL Glucose Urine UA NEGATIVE NEGATIVE mg/dL Bilirubin Urine NEGATIVE NEGATIVE Ketones Urine NEGATIVE NEGATIVE mg/dL Blood Urine MODERATE NEGATIVE Nitrite Urine POSITIVE NEGATIVE Urobilinogen Urine 1.0 0.2-1.0 EU/dL Leukocyte Esterase Urine SMALL NEGATIVE Urine Microscopic Indicated YES Performing Lab: see note ML - [facility] LB PROF 14(COMP METB) Reviewed date:09/28/2024 07:53:59 PM Interpretation: Performing Lab: Notes/Report: [facility] , Sodium 143 136-145 mmol/L Potassium 3.6 [...] 1.0 Performing Lab: see note ML - [facility] LB CBC AUTO DIFF Reviewed date:09/28/2024 07:53:59 PM Interpretation: Performing Lab: Notes/Report: [facility] [place] , White Blood Count 5.7 4.0-11.0 10 [...] fL Performing Lab: see note ML - [facility] LB Erythrocyte Sedimentation Ra te Reviewed date:09/08/2024 02:54:07 PM Interpretation: Performing Lab: Notes/Report: [facility] , Erythrocyte Sedimentation Rate 10 <=20 mm/hr Performing Lab: see note - [facility] LB XR hip BI w PEL 1V Reviewed date:07/29/2024 01:04:17 PM Interpretation: Performing Lab: Notes/Report: Source Facility: [facility] [place] [address] [place] [address] XRay Report Signed Patient: DIANA BARRIGA MR#: [id number] : 1990 Acct:[id number] Age/Sex: 33 / F ADM Date: 07/28/24 Loc: LAB Attending Dr: Domingo Das M.D. Ordering Physician: Domingo Das M.D. Date of Service: 07/28/24 Procedure(s): XR hip BI w PEL 1V Accession Number(s): [id number] cc: Domingo Das M.D. [place] [address] Patient Name: DIANA BARRIGA MRN: [id number] date: 1990 Sex: F Assigned Patient Location: LAB Current Patient Location: Accession/Order Number: [id number] Exam Date: 07/28/2024 09:45 Report Date: 07/29/2024 [...] M.D. Signed By: 07/29/24451 DD/ 9 TD/TT: Mail Order Sorter: [place] [address] XRay Report Signed Patient: RAMIN BARRIGA MR#: [id number] : 1990 Acct:[id number] Age/Sex: 33 / F ADM Date: 07/28/24 Loc: LAB Attending Dr: Radha Das M.D. Ordering Physician: Domingo Das M.D. Date of Service: 07/28/24 Procedure(s): XR hip BI w PEL 1V Accession Number(s): [id number] cc: Domingo Das M.D. [place] [address] Patient Name: DIANA BARRIGA MRN: [id number] date: 1990 Sex: F Assigned Patient Location: LAB Current Patient Location: Accession/Order Numb er: [id number] Exam Date: 09:45 Report Date: 07/29/2024 04:50 [...] M.D. Signed By: 07/29/24451 DD/ 9 TD/TT: Mail Order Sorter: XR lumbar spine min 4V Reviewed date:07/28/2024 07:31:04 PM Interpretation: Performing Lab: Notes/Report: Source Facility: [place] [address] XRay Report Signed Patient: DIANA BARRIGA MR#: [id number] : 1990 Acct:[id number] Age/Sex: 33 / F ADM Date: 07/28/24 Loc: LAB Attending Dr: Domingo Das M.D. Ordering Physician: Domingo Das M.D. Date of Service: 07/28/24 Procedure(s): XR lumbar spine min 4V Accession Number(s): [id number] cc: Domingo Das M.D. [address] [address] Patient Name: DIANA BARRIGA MRN: [id number] date: 1990 Sex: F Assigned Patient Location: LAB Current Patient Location: LAB Accession/Order Number: [id number] Exam Date: 07/28/2024 09:45 Report Date: 07/28/2024 [...] Signed By: 07/28/24 1108 DD/ 1105 TD/TT: Mail Order Sorter: [place] [address] XRay Report Signed Patient: RAMIN BARRIGA MR#: [id number] : 1990 Acct:[id number] Age/Sex: 33 / F ADM Date: 07/28/24 Loc: LAB Attending Dr: Radha Das M.D. Ordering Physician: Domingo Das M.D. Date of Service: 07/28/24 Procedure(s): XR lum bar spine min 4V Accession Number(s): [id number] cc: Domingo Das M.D. [address] [address] Patient Name: DIANA BARRIGA MRN: [id number] date: 1990 Sex: F Assigned Patient Location: LAB Current Patient Location: LAB Accession/Order Numb er: [id number] Exam Date: 09:45 Report Date: 07/28/2024 11:05 [...] Signed By: 07/28/24 1108 DD/ 1105 TD/TT: Mail Order Sorter: Vitamin B12 Reviewed date:07/29/2024 01:04:17 PM Interpretation: Performing Lab: [facility]: [facility] Vitamin B12 345 349-0683 pg/mL Performed at: [facility] [address] [id number] Steward/Stewardess Dining Room: Travis Menjivar PhD, Phone: [phone] Performing Lab: see note - [facility] LB TSH Reviewed date:07/28/2024 07:31:04 PM Interpretation: Performing Lab: Notes/Report: [facility] , Thyroid Stimulating Hormone 1.218 0.358-3.740 uIU/mL Performing Lab: see note - [facility] LB T4 Reviewed date:07/28/2024 07:31:04 PM Interpretation: Performing Lab: Notes/Report: [facility] , T4 Thyroxine 8.40 4.80-13.90 ug/dL Performing Lab: see note - [facility] LB PROF 14(COMP METB) Reviewed date:07/28/2024 07:31:04 PM Interpretation: Performing Lab: Notes/Report: [facility] , Sodium 139 136-145 mmol/L Potassium 3.8 [...] 1.0 Performing Lab: see note ML - [facility] IRON Reviewed date:07/28/2024 07:31:04 PM Interpretation: Performing Lab: Notes/Report: [facility] , Iron 54.0 50.0-170.0 ug/dL Performing Lab: see note ML - [facility] FREE T3 Reviewed date:07/28/2024 07:31:04 PM Interpretation: Performing Lab: Notes/Report: [facility] , Free T3 2.73 2.18-3.98 pg/mL Performing Lab: see note ML - [facility] LB FOLATE Reviewed date:07/28/2024 07:31:04 PM Interpretation: Performing Lab: Notes/Report: [facility] , Folate 4.40 8.60-58.90 ng/mL Performing Lab: see note ML - [facility] LB CBC AUTO DIFF Reviewed date:07/28/2024 10:17:10 AM Interpretation: Performing Lab: Notes/Report: [facility] , White Blood Count 6.7 4.0-11.0 10 [...] Performing Lab: see note ML - [facility] LB SARS-CoV-2 Ag* Reviewed date:06/29/2024 09:48:01 PM Interpretation: Performing Lab: Notes/Report: [facility] , SARS-CoV-2 Ag NEGATIVE NEGATIVE This test [...] Performing Lab: see note ML - [facility] LB IGP,Aptima HPV,Age Gdln Reviewed date:04/12/2025 09:12:34 PM Interpretation: Performing Lab: Notes/Report: SPATULA-ALONE VAGINA [facility] , Age Gdln ACOG Testing Note . TESTS RESULT FLAG UNITS REF RANGE LAB Clinician Provided Cytology Information Source.............Or fly No. of containers..01 ThinPrep Vial Age Algo ACOG Radha... 01 FLAG LEGEND: L-Low Normal,H-High Normal,LL-Alert Low,HH-Alert High <-Panic Low,>-Panic High,A-Abnormal,AA-Cr itical Abnormal Performed at: 01 =G [facility] [address] [place] [address] Shereen Caal MD, IGP, Aptima HPV, rfx 16/18,45 Note . TESTS RESULT FLAG UNITS REF RANGE LAB DIAGNOSIS: [A] 02 EPITHELIAL CELL ABNORMALITY. ATYPICAL SQUAMOUS CELLS OF UNDETERMINED SIGNIFICANCE (ASC-US). Recommendation: [A] 02 Suggest follow up as clinically appropriate. Specimen adequacy: 02 Satisfactory for evaluation. Performed by: 02 Tamiko Barrow, Golf Club Head Inspector And Adjuster ([facility]) Electronically si... Capri Boston MD, Pathologist . [...] Low,>-Panic High,A-Abnormal,AA-Cr itical Abnormal Performed at: [address] [place] [address] Shereen Caal MD, HPV Aptima Negative Negative This nucleic acid amplification test detects fourteen high- risk HPV types (16,18,31,33,35,39,45 ,51,52,56,58,59,66,68 ) without differentiation. Performed at: =[address] [id number] Steward/Stewardess Dining Room: Shereen Caal MD, Phone: [phone] Performed at: WB - [facility] [place], [place] [id number] Steward/Stewardess Dining Room: Shereen Caal MD, Phone: [phone] Performing Lab: see note - [facility] LB Urine [facility] Reviewed date:01/24/2025 03:36:36 PM Interpretation: Performing Lab: Notes/Report: [facility] [place] , Urine Culture - [facility] See Below For Report Urine [facility] Testing performed at [facility] O:ESCCOL Isolated Urine Culture - [facility] [place] Count Organism: 1.1 Antibiotic Interpretation ANASTASIA Status Urine Culture - [facility] [address] [place] [place] [address] Urine Culture - [facility] Testing performed at [facility] O:ESCCOL Isolated Urine Culture - [facility] [place] Count Organism: 1.1 Antibiotic Interpretation ANASTASIA Status Urine Culture - [facility] See Below For Report Urine Culture - [facility] Testing performed at [facility] O:ESCCOL Isolated Urine Culture - [facility] [place] Count Organism: 1.1 Antibiotic Interpretation ANASTASIA Status Urine Culture - [facility] See Below For Report Urine Culture - [facility] Testing performed at [facility] O:ESCCOL Isolated Urine Culture - [facility] [place] Count Organism: 1.1 Antibiotic Interpretation ANASTASIA Status Urine Culture - [facility] >100,000 Urine Culture - [facility] Testing performed at [facility] O:ESCCOL Isolated Urine Culture - [facility] [place] Count Organism: 1.1 Antibiotic Interpretation ANASTASIA Status Urine Culture - [facility] See Below For Report Urine Culture - [facility] Testing performed at [facility] O:ESCCOL Isolated Urine Culture - [facility] [place] Count Organism: 1.1 Antibiotic Interpretation ANASTASIA Status Urine Culture - [facility] Amikacin S F Urine Culture - [facility] Testing performed at [facility] O:ESCCOL Isolated Urine Culture - [facility] [place] Count Organism: 1.1 Antibiotic Interpretation ANASTASIA Status Urine Culture - [facility] Amoxicillin/Clavula chacho S F Urine Culture - [facility] Testing performed at [facility] O:ESCCOL Isolated Urine Culture - [facility] [place] Count Organism: 1.1 Antibiotic Interpretation ANASTASIA Status Urine Culture - [facility] Ampicillin S F Urine Culture - [facility] Testing performed at [facility] O:ESCCOL Isolated Urine Culture - [facility] [place] Count Organism: 1.1 Antibiotic Interpretation ANASTASIA Status Urine Culture - [facility] Aztreonam S F Urine Culture - [facility] Testing performed at [facility] O:ESCCOL Isolated Urine Culture - [facility] [place] Count Organism: 1.1 Antibiotic Interpretation ANASTASIA Status Urine Culture - [facility] Ceftazidime S F Urine Culture - [facility] Testing performed at [facility] O:ESCCOL Isolated Urine Culture - [facility] [place] Count Organism: 1.1 Antibiotic Interpretation ANASTASIA Status Urine Culture - [facility] Ceftazidime/Avibact am S F Urine Culture - [facility] Testing performed at [facility] O:ESCCOL Isolated Urine Culture - [facility] [place] Count Organism: 1.1 Antibiotic Interpretation ANASTASIA Status Urine Culture - [facility] Ceftolozane/Tazobac lewis S F Urine Culture - [facility] Testing performed at [facility] O:ESCCOL Isolated Urine Culture - [facility] [place] Count Organism: 1.1 Antibiotic Interpretation ANASTASIA Status Urine Culture - [facility] Ciprofloxacin S F Urine Culture - [facility] Testing performed at [facility] O:ESCCOL Isolated Urine Culture - [facility] [place] Count Organism: 1.1 Antibiotic Interpretation ANASTASIA Status Urine Culture - [facility] Ertapenem S F Urine Culture - [facility] Testing performed at [facility] O:ESCCOL Isolated Urine Culture - [facility] [place] Count Organism: 1.1 Antibiotic Interpretation ANASTASIA Status Urine Culture - [facility] Gentamicin S F Urine Culture - [facility] Testing performed at [facility] O:ESCCOL Isolated Urine Culture - [facility] [place] Count Organism: 1.1 Antibiotic Interpretation ANASTASIA Status Urine Culture - [facility] Levofloxacin S F Urine Culture - [facility] Testing performed at [facility] O:ESCCOL Isolated Urine Culture - [facility] [place] Count Organism: 1.1 Antibiotic Interpretation ANASTASIA Status Urine Culture - [facility] Meropenem S F Urine Culture - [facility] Testing performed at [facility] O:ESCCOL Isolated Urine Culture - [facility] [place] Count Organism: 1.1 Antibiotic Interpretation ANASTASIA Status Urine Culture - [facility] Meropenem/Vaborbact am S F Urine Culture - [facility] Testing performed at [facility] O:ESCCOL Isolated Urine Culture - [facility] [place] Count Organism: 1.1 Antibiotic Interpretation ANASTASIA Status Urine Culture - [facility] Nitrofurantoin S F Urine Culture - [facility] Testing performed at [facility] O:ESCCOL Isolated Urine Culture - [facility] [place] Count Organism: 1.1 Antibiotic Interpretation ANASTASIA Status Urine Culture - [facility] Tetracycline S F Urine Culture - [facility] Testing performed at [facility] O:ESCCOL Isolated Urine Culture - [facility] [place] Count Organism: 1.1 Antibiotic Interpretation ANASTASIA Status Urine Culture - [facility] Tigecycline S F Urine Culture - [facility] Testing performed at [facility] O:ESCCOL Isolated Urine Culture - [facility] [place] Count Organism: 1.1 Antibiotic Interpretation ANASTASIA Status Urine Culture - [facility] Tobramycin S F Urine Culture - [facility] Testing performed at [facility] O:ESCCOL Isolated Urine Culture - [facility] [place] Count Organism: 1.1 Antibiotic Interpretation ANASTASIA Status Urine Culture - [facility] Ampicillin/Sulbactam S F Urine Culture - [facility] Testing performed at [facility] O:ESCCOL Isolated Urine Culture - [facility] [place] Count Organism: 1.1 Antibiotic Interpretation ANASTASIA Status Urine Culture - [facility] Cefazolin S F Urine Culture - [facility] Testing performed at [facility] O:ESCCOL Isolated Urine Culture - [facility] [place] Count Organism: 1.1 Antibiotic Interpretation ANASTASIA Status Urine Culture - [facility] Cefepime S F Urine Culture - [facility] Testing performed at [facility] O:ESCCOL Isolated Urine Culture - [facility] [place] Count Organism: 1.1 Antibiotic Interpretation ANASTASIA Status Urine Culture - [facility] Ceftriaxone S F Urine Culture - [facility] Testing performed at [facility] O:ESCCOL Isolated Urine Culture - [facility] [place] Count Organism: 1.1 Antibiotic Interpretation ANASTASIA Status Urine Culture - [facility] Cefuroxime S F Urine Culture - [facility] Testing performed at [facility] O:ESCCOL Isolated Urine Culture - [facility] [place] Count Organism: 1.1 Antibiotic Interpretation ANASTASIA Status Urine Culture - [facility] Piperacillin/Tazoba ctam S F Urine Culture - [facility] Testing performed at [facility] O:ESCCOL Isolated Urine Culture - [facility] [place] Count Organism: 1.1 Antibiotic Interpretation ANASTASIA Status Urine Culture - [facility] Trimethoprim/Sulfa S F Urine Culture - [facility] Testing performed at [facility] O:ESCCOL Isolated Urine Culture - [facility] [place] Count Organism: 1.1 Antibiotic Interpretation ANASTASIA Status Performing Lab: see note ML - [facility] LB SEE REPORT - Clerk Supervisor Id information not found for OBX-specific oil producer legend UA Micro, reflex to culture Reviewed date:01/22/2025 03:38:47 PM Interpretation: Performing Lab: Notes/Report: [facility] , Color Urine LT. YELLOW YELLOW Clarity Urine CLOUDY CLEAR Specific [place] Urine 1.010 1.005-1.025 pH Urine 6.5 5.0-9.0 [...] SEEN NONE SEEN #/LPF Urine Culture Indicated YES-[facility] Performing Lab: see note - [facility] LB HCG Qualitative* Reviewed date:01/22/2025 03:38:47 PM Interpretation: Performing Lab: Notes/Report: [facility] , HCG Qualitative NEGATIVE NEGATIVE Performing Lab: see note [facility] LB PROF 14(COMP METB) Reviewed date:01/22/2025 03:38:47 PM Interpretation: Performing Lab: Notes/Report: [facility] , Sodium 139 136-145 mmol/L Potassium 3.3 [...] 1.0 Performing Lab: see note ML - [facility] LB LACTATE or LACTIC ACID Reviewed date:01/22/2025 03:38:47 PM Interpretation: Performing Lab: Notes/Report: [facility] , Lactate/Lactic Acid 1.3 0.4-2.0 mmol/L Performing Lab: see note ML - [facility] LB CBC AUTO DIFF Reviewed date:01/22/2025 03:38:47 PM Interpretation: Performing Lab: Notes/Report: [facility] , White Blood Count 8.2 4.0-11.0 10 [...] 3/uL Performing Lab: see note ML - [facility] LB Urine Culture, Routine Reviewed date:10/04/2024 12:21:27 PM Interpretation: Performing Lab: Notes/Report: [facility] , Urine Culture, Routine See Below For Report Urine Culture, Routine Urine Culture, Routine Mixed urogenital greg Urine Culture, Routine Urine Culture, Routine 10,000-25,000 col bryon forming units per mL Urine Culture, Routine Urine Culture, Routine Performed at: - [facility] [place] Urine Culture, Routine Urine Culture, Routine [address] [place], [place] [id number] Urine Culture, Routine Urine Culture, Routine Steward/Stewardess Dining Room: Arie Menjivar PhD, Phone: [phone] Urine Culture, Routine Performing Lab: see note LC - [facility] LB SEE REPORT - Clerk Supervisor Id information not found for OBX-specific oil producer legend Urine Culture, Routine Reviewed date:10/03/2024 06:15:29 PM [...] ANASTASIA Status Urine Culture, Routine Performed at: [facility], Routine Organism: Gram negative christelle : O:ECMS Isolated O:GNR Isolated Organism: 1.1 Antibiotic Interpretation ANASTASIA Status Urine Culture, Routine [address] [place], [place] [id number] Urine Culture, Routine Organism: Gram negative christelle : O:ECMS Isolated O:GNR Isolated Organism: 1.1 Antibiotic Interpretation ANASTASIA Status Urine Culture, Routine Steward/Stewardess Dining Room: Arie Menjivar PhD, Phone: [phone] Urine Culture, Routine Organism: Gram negative christelle [...] LC - [facility] LB SEE REPORT - Clerk Supervisor Id information not found for OBX-specific oil producer legend Reason For Referral Diagnosis 1 Pyelonephritis (N12) Referral Organization [facility] Referring Provider First Name Kendrick Referring Provider Last Name Thiago Referring Provider [facility] Referred Organization [facility] [place] Referred Provider [facility] Referred Address [address],[facility] [address],[place], [place],[address], Referred Provider Specialty Urology Referral Priority Routine Diagnosis 1 Low back pain at [facility] (M54.50) Referral Organization [facility] Referring Provider First Name Kendrick Referring Provider Last Name Thiago Referring Provider [facility] Referred Provider [facility] Physical Therap y Referred Provider Specialty Physical The rapist Referral Priority Routine Diagnosis 1 Arthralgia (M25.50) Referral Organization [facility] Referring Provider First Name Kendrick Referring Provider Last Name Thiago Referring Provider [facility] Referred Provider Keith Craig Referred Provider Specialty Rheumatology Referral Priority Routine Medications Medication SIG (Take, Route, Frequency, Duration) Notes Start Date End Date Status Promethazine HCl 25 MG 1 tablet as neede d Orally q6h for 5 days PRN 01/23/2025 Active tiZANidine HCl 4 MG 2 tabs Orally qhs fo r 30 days 03/15/2025 Active Mupirocin 2 % 1 application Face Cleaner ally Twice a day for 5 days 06/07/2025 Active Potassium Chloride ER 10 MEQ 1 tablet with food Orally Twice a day for 30 days 05/25/2025 Active Meloxicam 15 MG 1 tablet Orally Once a day for 30 days 03/15/2025 Active Dsowvugvws-Vsvu-Mpgmshtchh 20-2-10 % as directed Externally 06/16/2025 Activ [...] Problem Status W/U Status Risk Notes Problem 55524936 Essential (primary) hypertension (I10) Active confirmed Problem 540311132 Gastritis and duodenitis (535.50) Active confirmed Problem 513172423 Bipolar disorder , unspecified (F31.9) Active confirmed Problem Hypomagnesemia (100259125) Hypomagnesemia (E83.42) Active confirmed Problem 05398147 Anxiety disorder , unspecified (F41.9) Active confirmed Problem 541747588 Insomnia, unspecified (G47.00) Active confirmed Problem 00868274 Other chronic pa in (G89.29) Active confirmed Problem Streptococcal pharyngitis (15225619) Streptococcal pharyngitis (J02.0) Active confirmed Problem 118119444 Calculus of kidn ey (N20.0) Active confirmed Problem Sprain of calcaneofibular ligament (04221647) Sprain of calcaneofibular ligament of left ankle, initial encounter (S93.412A) Active confirmed Problem Abdominal pain (89468478) Abdominal pain (R10.9) Active confirmed Problem Gastroesophageal reflux disease (911001485) GERD (gastroesophageal reflux disease) (K21.9) Active confirmed Problem Cervical radiculopathy (19784790) Cervical radiculopathy (M54.12) Active confirmed Problem Lumbar radiculopathy (835676836) Lumbar radiculopathy (M54.16) Active confirmed Problem Arthralgia (83217586) Arthralgia (M25.50) Active confirmed Problem Kidney stone (79608405) Kidney stones (N20.0) Active confirmed Problem Nephrolithiasis (69035583) Nephrolithiasis (N20.0) Active confirmed Problem Gastritis (2979842) Gastritis (K29.70) Active c onfirmed Problem Well adult (787778821) Well adult (Z00.00) Active confirmed Problem Cellulitis (524619529) Cellulitis (L03.90) Active confirmed Problem Lesion of ulnar nerve (622007926) Ulnar nerve compression, right (G56.21) Active confirmed Problem Pyelonephritis (20662294) Pyelonephritis (N12) Active confirmed Problem Muscle spasm (26062128) Muscle spasm (M62.838) Active confirmed Problem Overweight (399481032) Over weight (E66.3) Active confirmed Problem Lesion of ulnar nerve (548720818) Ulnar nerve compression, left (G56.22) Active confirmed Problem Entrapment of left ulnar nerve (918396375036562) Entrapment of left ulnar nerve (G56.22) Active confirmed Problem Superficial thrombophlebitis (6029944) Superficial thrombophlebitis (I80.9) Active confirmed Problem Change of urinary catheter bag (procedure) (037193835) Catheter (urine) change required (Z46.6) Active confirmed Problem Mass of scalp (927468578) Mass of scalp (R22.0) Active confirmed Problem Lesion of ulnar nerve (627858166) Impingement of right ulnar nerve (G56.21) Active confirmed Problem Acute urinary tract infection (054232937) Acute UTI (N39.0) Active confirmed Problem Kidney stone (54126724) Kidney stone on right side (N20.0) Active confirmed Problem Retroflexion of uterus (45698558) Retroflexion of uterus (N85.4) Active confirmed Problem Disorder of kidney and/or ureter (808215260) Abnormal position of kidney (N28.89) Active confirmed Problem 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) Obstruction of ureter, 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 Problem Kidney stone (01981908) Altered urinary elimination pattern due to calculus of kidney (N20.0) Active confirmed Problem Muscle pain (67334293) Myalgia, unspecified site (M79.10) Active confirmed Problem Vesicoureteric reflux (disorder) (109278961) VUR (vesicoureteric reflux) (N13.70) Active confirmed Problem 68870823 Depression, unspecified (F32.A) Active confirmed Problem 187914981 Low back pain, unspecified (M54.50) Active confirmed Vital Signs Temperature 98.4 degrees Fahrenheit 06/29/2024 Blood pressure diastolic 78 mm Hg 06/16/2025 Height 66 in 06/16/2025 Blood pressure systolic 122 mm Hg 06/16/2025 Weight 184.2 lbs 06/16/2025 BMI 29.73 kg/m2 06/16/2025 Procedures Procedure Date Ordered Date Performed Result Body Sit e Ureteral Laser Lithotripsy 01/24/2025 01/24/2025 N/A ESWL 01/24/2025 01/24/2025 N/A Voiding Cystourethrogram 01/05/2025 01/09/2025 N/A Encounters Encounter Location Date Provider Diagnosis [address] [address] 07/28/2024 Kendrick Hoy Myalgia, unspecified site M79.10 ; Low back pain, unspecified M54.50 and Muscle spasm M62.[address] [address] 09/30/2024 Kendrick Hoy Kidney stones N20.0 and Pyelonephritis N12 [address] [address] 10/06/2024 Kendrick Hoy Acute UTI N39.[address] [address] 12/01/2024 Kendrick Hoy Acute UTI N39.0 ; UT I (urinary tract infection), uncomplicated N39.0 and Dysuria R30.0 [address] [place] [address] 02/01/2025 Kendrick Hoy Kidney stones N20.0 [facility] [address] [place] [address] 09/07/2024 Kendrick Hoy Well adult Z00.00 ; Hypomagnesemia E83.42 ; GERD (gastroesophageal reflux disease) K21.9 and Kidney stones N20.0 [facility] [address] [place] [address] 06/29/2024 Kendrick Hoy Acute non-recurrent sinusitis, unspecified location J01.90 and Nasal congestion R09.81 [facility] [address] [place] [address] 03/23/2025 Kendrick Hoy Lumbar radiculopathy M54.16 [facility] [address] [place] [address] 05/23/2025 Kendrick Hoy Arthralgia M25.50 [facility] [address] [place] [address] 06/07/2025 Kendrick Hoy Cellulitis L03.90 [address] [place] [address] 06/16/2025 Kendrick Hoy Cervical radiculopat hy M54.12 and Abdominal pain R10.9 [address] [place] [address] 03/15/2025 Kendrick Hoy Essential (primary) hypertension I10 and Low back pain, unspecified M54.[address] [address] 03/16/2025 Adonis Sanchez Dysuria R30.0 and UT I (urinary tract infection), uncomplicated N39.[address] [address] 01/24/2025 Adonis Sanchez VUR (vesicoureteric reflux) N13.70 ; Kidney stones N20.0 and UTI (urinary tract infection), uncomplicated N39.[address] [address] 11/24/2024 Adonis Sanchez Acute UTI N39.0 ; Ki dney stones N20.0 ; Pyelonephritis N12 and VUR (vesicoureteric reflux) N13.70 [facility] [address] [place] [address] 06/29/2024 Kendrick Das [facility] [address] [place] [address] 07/28/2024 Kendrick alonso [facility] [address] [place] [address] 07/29/2024 Kendrick Das [facility] [address] [place] [address] 09/07/2024 Kendrick Joséy Pyelonephritis N12 a nd Kidney stones N20.0 [facility] [address] [place] [address] 09/08/2024 Kendrick Das [facility] [address] [place] [address] 10/03/2024 Kendrick Das [facility] [address] [place] [address] 01/05/2025 Adonis Sanchez VUR (vesicoureteric reflux) N13.70 [facility] [address] [place] [address] 01/23/2025 Kendrick Joséalonso [facility] [address] [place] [address] 01/24/2025 Kendrick Das [facility] [address] [place] [address] 01/26/2025 Adonis Sanchez [facility]rology [address] [place] [address] 03/16/2025 Adonis Sanchez Urinary tract infect ion, site not specified N39.0 [facility] [address] [place] [address] 03/28/2025 Kendrick Das Low back pain at multiple sites M54.50 [facility] [address] [place] [address] 05/06/2025 Kendrick Das [facility] [address] [facility] [place] [address] 05/08/2025 Kendrick Das [facility] [address] [facility] [place] [address] 05/24/2025 Kendrick Das [facility] [address] [facility] [place] [address] 05/28/2025 Kendrick Das Arthralgia M25.50 Assessments Encounter Date Diagnosis (ICD Code) Assessment Notes Treatment Notes Treatment Clinical Notes Section Notes 09/07/2024 Well adult (ICD-10 - Z00.00) 09/07/2024 Hypomagnesemia (ICD-10 - E83.42) 06/29/2024 Acute non-recurrent sinusitis, unspecified location (ICD-10 - J01.90) Rest and drink more liquids, especially water. You may use a humidifier or vaporizer to help keep the drainage moist. Qocy-wls-sxctvwu Nasal Saline may help the stuffy and runny nose. Use Ibuprofen and or Tylenol as needed for fever, chills, body aches or pain. Children 5 years old should not be given hucn-zpk-pakzegg cough and cold medications such as guaifenesin and dextromethorphan. If you're over age 5, you may try ylll-uwk-myovbyr cold medications such as guaifenesin and dextromethorphan, [...] days 11/24/2024 Acute UTI (ICD-10 - N39.0) 02/01/2025 Kidney stones (ICD-10 - N20.0) 03/16/2025 Dysuria (ICD-10 - R30.0) 03/16/2025 UTI (urinary tract infection), uncomplicated (ICD-10 - N39.0) 03/15/2025 Essential (primary) hypertension (ICD-10 - I10) 03/15/2025 Low back pain, unspecified (ICD-10 - M54.50) 03/23/2025 Lumbar radiculopathy (ICD-10 - M54.16) 05/23/2025 Arthralgia (ICD-10 - M25.50) 06/07/2025 Cellulitis (ICD-10 - L03.90) 06/16/2025 Cervical radiculopathy (ICD-10 - M54.12) 06/16/2025 Abdominal pain (ICD-10 - R10.9) 09/07/2024 Pyelonephritis (ICD-10 - N12) 09/07/2024 Kidney stones (ICD-10 - N20.0) 01/05/2025 VUR (vesicoureteric reflux) (ICD-10 - N13.70) 03/16/2025 Urinary tract infection, site not specified (ICD-10 - N39.0) 03/28/2025 Low back pain at multiple sites (ICD-10 - M54.50) 05/28/2025 Arthralgia (ICD-10 - M25.50) 09/30/2024 Kidney stones (ICD-10 - N20.0) 09/30/2024 [...] until they are finished. You can use mtet-zee-cgqojwe acetaminophen or ibuprofen if needed for pain. You should follow up with your Primary Care Physician or return to clinic if not improving in the next 3-5 days. 12/01/2024 Dysuria (ICD-10 - R30.0) 07/28/2024 Muscle [...] DIFF 09/16/2023 CBC WITH DIFF 07/28/2024 ASO ([id number]), BLOOD 025 NUC MED Renal Flow with [...] Provider Name:Kendrick Das, 10:00:00 AM, [address] [place], [address], Insurance Providers Payer Name Payer Address Payer Phone Subscriber Number Group Number Insured Name Patient Relationship to Insured Coverage Start Date Coverage End Date [employer] [address] [place] [address] [id number] Wesly Barriga Spouse - patient is the [...]
--- OUTSIDE RECORDS SUMMARY | 2025-06-23 07:17 | XMS_ITS | Encounter Summary ---
Author Organization [facility] Address [address] [place] [address] Care Team Providers Care Interactive Project Manager Name Role Phone Ignacio Das MD Primary Care Provider [phone] Encounter Details Date Type Department Care Team (Late Contact Info) Description 12/23/2023 Clinisync Result Encounter [facility] External Department Unsolicited Tamiko Chacon PA [address] [facility] [address] [place], [facility] Social History Tobacco Use Types Packs/Day [...] Office Visit [place] KESSLER [address] [facility] [place] [address] Jefferson Gibbs DO [address] [facility] [address] [place], [facility] 05/29/2026 1:15 PM EDT Office Visit [facility] [address] [place] [address] Alejandra Leiva MD [address] [place] [address] [place] [address] documented as of this encounter Procedures Procedure Name Priority Date/Time Associated Diagnosis Comments MM TOMOSYNTHESIS DIAGNOSTIC BI 12/23/2023 1:47 PM EST documented in this encounter Results * MM TOMOSYNTHESIS DIAGNOSTIC BI (12/23/2023 1:47 PM EST) Anatomical Region Laterality Modality Other 12/23/2023 1:47 PM EST Narrative 12/23/2023 1:48 [place] [address] Mammography Report Signed Patient: DIANA BEAVER MR#: [id number] : 1990 Acct:[id number] Age/Sex: 33 / F ADM Date: 12/23/23 Loc: MAMMO Attending Dr: Jefferson Gibbs D.O. Ordering Physician: Tamiko Chacon Results: Date of Service: 12/23/23 Follow Up: Procedure(s): MM tomosynthesis diagnostic BI Accession Number(s): [id number] cc: Tamiko Chacon; Ignacio Das M.D. Patient Name: DIANA BEAVER MR#: [id number] : 1990 Exam Date: 12/23/2023 Ordering Doctor: [...] Treatments None Family Cancers None LOCATION: [facility] BREAST COMPOSITION: Extremely dense, which lowers [...] Signed By: 12/23/23 1348 DD/ 1347 TD/TT: Senior Telecommunications Technician: Procedure Note Radiology, Radiologist, MD - 12/23/2023 [place] [address] Mammography Report Signed Patient: DIANA BEAVER LMR#: [id number] : 1990Acct:[id number] Age/Sex: 33 / FADM Date: 12/23/23 Loc: MAMMO Attending Dr: Jefferson Gibbs D.O. Ordering Physician: Tamiko Najeraults: Date of Service: 12/23/23Follow Up: Procedure(s): MM tomosynthesis diagnostic BI Accession Number(s): [id number] cc: Tamiko Chacon; Ignacio Das M.D. Patient Name: DIANA BEAVER MR#: [id number] : 1990 Exam Date: 12/23/2023 Ordering Doctor: [...] M.D. Signed By:12/23/23 1348 DD/ 1347 TD/TT: Senior Telecommunications Technician: Tamiko [facility] Final Result documented in this encounter Visit Diagnoses Not on filedocumented in this encounter Care Teams Interactive Project Manager Relationship Specialty Start Date End Date Ignacio Das MD [address] [place] [address] PCP - General Family Medicine 04/13/23 documented as of this encounter
--- OUTSIDE RECORDS SUMMARY | 2025-06-23 07:17 | XMS_ITS | Encounter Summary ---
Author Organization [facility] Address [address] [place] [address] Care Team Providers Care Management Specialist Name Role Phone Ignacio Das MD Primary Care Provider [phone] Encounter Details Date Type Department Care Team (Late Contact Info) Description 04/18/2025 Results Follow-Up [place] KESSLER [address] [place] [address] Tana Shell LPN [address] [facility] [address] IGP,APTIMA HPV,AGE GDLN Social History Tobacco Use [...] AM EDT Office Visit [place] KESSLER [address] [place] [address] Jefferson Gibbs DO [address] [facility] [address] [place], [place] [address] 05/29/2026 1:15 PM EDT Office Visit [facility] [address] [place] [address] Alejandra Leiva MD [address] [facility] [address] [place] [address] documented as of this encounter Visit Diagnoses Not on filedocumented in this encounter Care Teams Management Specialist Relationship Specialty Start Date End Date Ignacio Das MD [address] [facility] [place] [address] PCP - General Family Medicine 04/13/23 documented as of this encounter
--- NOTE | 2025-06-23 07:18 | US_ITS ---
The [address] [address] Patient Name: CORI BARRIGA MRN: [id number] date: 1990 Sex: F Assigned Patient Location: US Current Patient Location: [place] Accession/Order Number: [id number] Exam Date: 06/23/2025 07:40 Report Date: 06/23/2025 09:39 At the request of: DOMINGO SNYDER MD Procedure: US abdomen complete COMPLETE ABDOMINAL ULTRASOUND CLINICAL HISTORY: Mid abdominal pain for months nausea and vomiting. Prior cholecystectomy. R10.9 COMPARISON: CT 05/05/2025 The gallbladder is surgically absent. No intrahepatic biliary dilatation is evident. The common duct is slightly prominent measuring 6-7 mm. No filling defects are visualized in the segment that is imaged. The liver is normal in echogenicity. No intrahepatic masses are seen. There is appropriate hepatopetal flow within the main portal vein. The pancreas, as visualized shows no significant sonographic abnormality. The right kidney measures approximately 10.9 cm and the left 10.1 cm in craniocaudal dimension. There is some cortical thinning on the right. There is an echogenic focus with twinkle artifact at the inferior pole on the right suggesting a stone. It measures 5 - 6 mm in size. There is also a potential second stone measuring 2 - 3 mm. Left kidney is slightly lobulated and there are are additional stones measuring up to 7 - 8 mm. These stones were also visualized on the comparison CT. No hydronephrosis is identified. The spleen is normal in size and echogenicity with craniocaudal dimension of 9.8 cm. There is no aortic aneurysm. The IVC is patent. No ascites is seen. US/US abdomen complete IMPRESSION: BILATERAL NEPHROLITHIASIS, WITHOUT OBSTRUCTION. SLIGHTLY PROMINENT COMMON DUCT THAT IS LIKELY RELATED TO PREVIOUS CHOLECYSTECTOMY. OTHERWISE UNREMARKABLE ABDOMINAL ULTRASOUND. Impression dictated by: Imani Celis M.D. 06/23/2025 9:39 AM Dictation Location: [place] [address] Electronically authenticated by: [id number] Y Date: 06/23/2025 09:39
--- OUTSIDE RECORDS SUMMARY | 2025-06-23 07:18 | XMS_ITS | Clinical Summary ---
Author Organization [employer] tem Address [id number] [address] [place] [address] Care Team Providers Care Motion Picture Critic Name Role Phone Ignacio Das MD Primary Care Provider [phone] Allergies No known active allergies Medications prenat.vits,rodger,min [...] Narrative COPATH - 02/03/2018 12:11 PM EDT [facility] [address] [place] [address] Gynecologic Cytology Consultation Patient Name: DIANA ENAMORADO : 1990 (Age: 27) Gender: F Taken: 01/22/2018 Reported: 02/03/2018 Physician(s): Yuniel Rosenberg MD [phone]) Copy To: Med. Rec. #: [id number] Acct: # [id number] Final Cytologic Interpretation Cervical (with or without endocervical) ThinPrep: Satisfactory for evaluation. A transformation zone component is present. NEGATIVE FOR INTRAEPITHELIAL LESION OR MALIGNANCY. Shift in greg suggestive of bacterial vaginosis. jja/02/03/2018 Electronically Signed Out By CARON Galeano (ASCP) Date of Last Menstrual Period: 12/25/2017 Other Clinical Conditions: Screening/Routine z01.419 Sports Physician exam wo/abn findings Source of Specimen Cervical (with or without endocervical) ThinPrep Thin Prep Pap (WIRE SPRING RELAY ADJUSTER) Fee Code(s): G0145 The Pap test is a screening test with an inherent, but low, probability of error. The Pap test is primarily effective for the diagnosis and prevention of squamous cell carcinoma. Regular screening is critical for prevention. ThinPrep liquid-based slides, which meet the [employer] Human[employer] Teacher criteria for automated screening, have been screened by the ThinPrep Imaging System (as of 07/05/07) along with an additional manual rescreening by a gantry crane operator and, if indicated, by a pathologist.Yuniel Rosenberg, [...] 9:20 AM 08/14/2018 4:36 PM Care Teams Motion Picture Critic Relationship Specialty Start Date End Date Ignacio Das MD PCP - General Family Medicine 09/17/20
--- OUTSIDE RECORDS SUMMARY | 2025-06-23 07:18 | XMS_ITS | Encounter Summary ---
Author Organization [facility] Address [address] [facility] [place] [address] Care Team Providers Care Pneumatic Tube Fitter Name Role Phone Ignacio Das MD Primary Care Provider [phone] Encounter Details Date Type Department Care Team (Late Contact Info) Description 05/15/2023 Abstract [facility] [address] [place] [address] Tamiko Chacon PA [address] [facility] [address] [place], [place] [address] Social History Tobacco Use Types Packs/Day Years [...] AM EDT Office Visit [place] KESSLER [address] [place] [address] Jefferson Gibbs DO [address] [facility] [address] [place], [place] [address] 05/29/2026 1:15 PM EDT Office Visit [facility] [place] [facility] [address] [place] [address] [place] [address] Alejandra Leiva MD [address] [facility] [address] [place] [address] documented as of this encounter Visit Diagnoses Not on filedocumented in this encounter Care Teams Pneumatic Tube Fitter Relationship Specialty Start Date End Date Ignacio Das MD [address] [place] [address] PCP - General Family Medicine 04/13/23 documented as of this encounter
--- OUTSIDE RECORDS SUMMARY | 2025-06-23 07:18 | XMS_ITS | Encounter Summary ---
Author Organization [facility] [employer] [facility] tem Address [id number] [address] [place] [address] Care Team Providers Care Scrap Preparation Supervisor Name Role Phone Ignacio Das MD Primary Care Provider [phone] Encounter Details Date Type Department Care Team (Late st Contact Info) Description 07/26/2020 Abstract Maternal- Medicine at [facility] [address] [place] [address] Billy Cazares MD [address] [facility], [address] [place] [address] Social History Tobacco Use Types [...] on filedocumented in this encounter Care Teams Scrap Preparation Supervisor Relationship Specialty Start Date End Date Ignacio Das MD PCP - General Family Medicine 09/17/20 documented as of this encounter
--- OUTSIDE RECORDS SUMMARY | 2025-06-23 07:18 | XMS_ITS | Patient Health Record ---
Author Organization [facility] Address [address] [place] [address] Care Team Providers Care Mounting Inspector Name Role Phone Iván Puckett Primary Care Provider [phone] Reason For Referral No Information Plan Of Treatment No Information Insurance Providers Payer Name Payer Address Payer Phone Subscriber Number Group Number Insured Name Patient Relationship to Insured Coverage Start Date Coverage End Date [employer] [place] [employer] [address] [address] [place] [address] [id number] CORI BARRIGA Self - patient is the insured 3 [employer] [facility] [place] [address] [place] [address] [id number] CORI BARRIGA Self - patient is the insured 3
--- OUTSIDE RECORDS SUMMARY | 2025-06-23 07:18 | XMS_ITS | Clinical Summary ---
Author Organization [facility] Address [address] [facility], [address] [place] [address] Care Team Providers Care Grain Merchandiser Name Role Phone Ignacio Das MD Primary Care Provider [phone] Allergies No known active allergies Medications tamsulosin [...] drink = 0.6 oz pur e alcohol) [facility] Utilities Answer Date Recorded In the past 12 months has [employer], gas, oil, or water company threatened to [...] any time in the past 12 m [facility], were you homeless or living in a [place] health care facility (including now)? No 01/26/2025 Food Insecurity Answer [...] this topic Medical Devices Implanted Type Area Station Installer And Repairer Device Identifier Shelf Expiration Date Model / Serial / Lot Stent Uret 6fr L26cm Percflx Hydr+ Tapr Tip Grad - [id number] Implanted:Qty : 1 on 01/22/2025 by Sanya Trevizo MD at [facility] Left: Ureter [employer] [id number] 09/06/2027 [id number] 30 / / [id number] Stent Uret 6fr L26cm Percflx Hydr+ Dbl Pgtl Thrd 2 - [id number] Implanted:Qty : 1 on 01/27/2025 by Azar Espino MD at [facility] Left: Ureter [employer] [id number] 11/24/2027 [id number] 30 / / [id number] Stent Uret 6fr L26cm Percflx Hydr+ Dbl Pgtl Thrd 2 - [id number] Implanted:Qty : 1 on 01/27/2025 by Azar Espino MD at [facility] Right: Ureter [employer] [id number] 11/24/2027 [id number] 30 / / [id number] Insurance ALLIED BENEFIT SYSTEM Advance Directives * Full Code (Latest Code Status on File) Date Activated Date Inactivated Comments 01/26/2025 5:26 PM 01/29/2025 11:47 AM * Full Code Date Activated Date Inactivated Comments 01/21/2025 11:46 PM 01/22/2025 6:02 PM Care Teams Grain Merchandiser Relationship Specialty Start Date End Date Ignacio Das MD [address] [place] [address] PCP - General Family Medicine 01/05/25
--- OUTSIDE RECORDS SUMMARY | 2025-06-23 07:18 | XMS_ITS | Encounter Summary ---
Author Organization [facility] Address [address] [place] [address] Care Team Providers Care Sign Maker Name Role Phone Ignacio Das MD Primary Care Provider [phone] Encounter Details Date Type Department Care Team ([facility] Contact Info) Description 04/30/2023 Abstract [facility] [address] [facility] [place] [address] Jefferson Gibbs DO [address] [place] [address] Social History Tobacco Use Types Packs/Day Years [...] Upcoming Encounters Date Type Department Care Team ([facility] Contact Info) Description 04/09/2026 9:00 AM EDT Office Visit [place] KESSLER [address] [place] [address] Jefferson Gibbs DO [address] [place] [id number] 05/29/2026 1:15 PM EDT Office Visit [facility] [address] [place] [address] Alejandra Leiva MD [address] [facility] [address] [place] [address] documented as of this encounter Visit Diagnoses Not on filedocumented in this encounter Care Teams Sign Maker Relationship Specialty Start Date End Date Ignacio Das MD [address] [facility] [place] [address] PCP - General Family Medicine 04/13/23 documented as of this encounter
--- OUTSIDE RECORDS SUMMARY | 2025-06-23 07:18 | XMS_ITS | Encounter Summary ---
Author Organization [facility] [employer] [facility] tem Address [id number] [address] [place] [address] Care Team Providers Care Sales And Management Trainee Name Role Phone Ignacio Das MD Primary Care Provider [phone] Encounter Details Date Type Department Care Team (Late st Contact Info) Description 07/26/2020 Orders Only Maternal- Medicine at [facility] [address] [place] [address] External, Scanning Provider Social History Tobacco Use [...] filedocumented in this encounter Care Teams Sales And Management Trainee Relationship Specialty Start Date End Date Ignacio Das MD PCP - General Family Medicine 09/17/20 documented as of this encounter
--- OUTSIDE RECORDS SUMMARY | 2025-06-23 07:18 | XMS_ITS | CCD ---
Author Organization [facility] CliniSymo Care Team Providers Care Supervisor Building Maintenance Name Role Phone Domingo Snyder MD Unavailable DANIEL MONTGOMERY Attending Unavailable DOMINGO SNYDER Referring Unavailable Domingo Snyder Primary Care Physician [phone] LILLIAN ., DR LANE Primary Care Unavailable [...] Attending Unavailable VARUN ., ORA Admitting Unavailable ADJUAN, DR GLEN Alford Consulting Unavailable HOY ., [...] Unavailable BERNIE ., DR TOLBERT Attending Unavailable RICHMOND, DR GLEN Alford Consulting Unavailable BERNIE ., [...] Unavailable MD Domingo Snyder Primary Care Provider [phone] MD Arnulfo Aviles Admit Provider MD Arnulfo Aviles Attending Provider Domingo Snyder MD Primary Care Provider [phone] Domingo Snyder MD Attending Provider ADONIS GUERRA Referring Unavailable DOMINGO SNYDER Primary Care Unavailable Domingo Snyder MD Primary Care Provider [phone] Domingo Snyder MD Primary Care Provider [phone] Domingo Snyder MD Attending Provider Javi Tanner PA-C Attending Provider [phone] DOMINGO SNYDER Primary Care Unavailable JAVI TANNER Referring Unavailable SURENDRA SALINAS Consulting Unavailable MASHALEH I, MOHAMMAD Admitting Unavailable MASESTRELLA Kearns, KATED Attending Unavailable DOMINGO SNYDER Primary Care Unavailable ADONIS GUERRA Attending Unavailable ADONIS GUERRA Referring Unavailable DOMINGO SNYDER Primary Care Unavailable DOMINGO SNYDER Primary Care Unavailable SIDNEY, HAYLEY Z Referring Unavailable EDWNIA ESPINO Consulting Unavailable MASHALEH I, MOHAMMAD Admitting Unavailable MASESTRELLA Kearns, KATED Attending Unavailable Adonis Guerra Attending Unavailable Adonis Guerra Admitting Unavailable DOMINGO SNYDER Primary Care Unavailable DOMINGO SNYDER Primary Care Unavailable Domingo Snyder MD Primary Care Provider [phone] Vj Fraire DO Attending Provider Domingo Snyder [...] August 16, 2022 11:38am 168 hr estradiol 0.61314 mg/hr transdermal system (14 sources) Estrogen Start: [...] as needed in the evening. 07/17/2023 Active [place] (No Known Home Meds) (4 sources) Start: 04-08-2024 [place] (No Kn own Home Meds) Active April 07, 2024 11:00pm Start: 04-08-2024 [place] (No Kn own Home Meds) Active April [...] BID, # 30 tab(s), Refills(s) 3, Pharmacy: [facility]/pharmacy #[id number], 168, cm, 03/20/23 10:32:00 EDT, Height/Length [...] 04-10-2025 Episodic Other aftercare (1 source) Other care home (current) drug therapy; Translations: [OTH MEDIA SERVICES SPECIALIST CURRENT DRUG THERAPY] Onset: 02-18-2023 Episodic [...] 6.0 ml Estimated blood loss: 1.0 ml [facility] Complexity: Intermediate Final length (cm): 4.2 Reason [...] bleeding, or complications. Dressing type: pressure dressing [facility] No Panel InformationOrdered By: Falguni Morris on 05-15-2025 [facility] Urine Cultureon 05-05-2025 Bacteria identified Cx Nom (U) ORGANISM: Citrobacter freundii complex (O:CITFRC) [place] Count 75,000 Aerobic ANASTASIA Charge (NMIC56) ---- [...] RESISTANT TO ALL B-LACTAM DRUGS. PERFORMED BY: [facility] [address] [place] [address] PATHOLOGIST COMMERCIAL CREDIT OFFICER CALLUM ALVA M.D. Normal [facility] Comment on above: Performed By: #### C UU #### [facility] [address] [place] [address] [place] IGP,APTIMA HPV,AGE GDLNon AGE GDLN ACOG TESTING Note . [facility] Comment on above: TESTS RESULT FLAG UN ITS REF RANGE LAB Clinician Provided Cytology Information Source.............Vagina No. of containers..01 ThinPrep Vial Age Algo ACOG Radha... FLAG LEGEND: L-Low Normal,H-High Normal,LL-Alert Low,HH-Alert High <-Panic Low,>-Panic High,A-Abnormal,AA-Critical Abnormal Performed at: 01 =[address] [place] [address] Shereen Caal MD, HPV APTIMA Negative Negative [facility] Comment on above: This nucleic acid am plification test detects fourteen high- risk HPV types (16,18,31,33,35,39,45,51,52,56,58,59,66,68) without differentiation. Performed at: =[address] [id number] Fire Equipment Inspector Helper: Shereen Caal MD, Phone: [phone] Performed at: [address] [id number] Fire Equipment Inspector Helper: Shereen Caal MD, Phone: [phone] IGP, APTIMA HPV, RFX 16/18,45 Note Abnormal . [facility] Comment on above: TESTS RESULT FLAG UN ITS REF RANGE LAB DIAGNOSIS: [A] 02 EPITHELIAL CELL ABNORMALITY. ATYPICAL SQUAMOUS CELLS OF UNDETERMINED SIGNIFICANCE (ASC-US). Recommendation: [A] 02 Suggest follow up as clinically appropriate. Specimen adequacy: 02 Satisfactory for evaluation. Performed by: 02 Tamiko Barrow, Car Restorer (ASCP) Electronically si... 02 Capri Boston MD, [...] <-Panic Low,>-Panic High,A-Abnormal,AA-Critical Abnormal Performed at: [address] [address] Shereen Caal MD, Interpretation and review of laboratory results Abnormal [facility] SPATULA-[facility]ONE [facility] No Panel Informationon 04-10 Type of biopsy: [facility] Informed consent: discussed and consent obtained Informed [...] Number of sutures: [address] [facility] [employer] Type of biopsy: tangential Informed consent: discussed [...] taken Amount of lidocaine used: 1.0 cc [facility] Outside Recordson 04-03-2025 Outside Records [id number] [id number] Coding Summaryon 03-23-2025 Coding Summary HTMLBase 64 GzogfpynQEj6mNz+PGhlY WQ+SI1EXRSmU10dyEMuaZ 6oY2VHZPdRSfbkVJYPNEd MSyEgprAnDZ5wdCSoYCDg IC8+LC4aHPOaJixpeFQkr 6U1xXY4O91kiu1hWJybpU F8STBcUqYttdotr4vneGh 6IDcuNmluOyBt FLBwwS83GQF1qH34Gs59j VJdqTWof2khpIf7RzOpMY ZcYFN3oVdqAMvwv6RiIHJ xC70isTAmc3W4 RZPdoPqvvBZgEnCkwMR5r Q3dBYdazjcjm4hnyhlpFt h7sj37rCWzr1V6sRI9N3D skgG0GIRbxTNd GgukhWKPgM0geuiia1ofw qsvBtBoRSKfJPx5BWc1CJ BgkMuiDnUcGJ18OWT6HLK kfzSbW4WmAHKq iPctLuC6i3Y7Qn3QF3CKH shyV3DQBEWQCRcugWK+PC 14tf92S0HuEbnzKhb1MSD aOFC5vKM1wE4k VSApNUqnq3D2oFZ0Z7Pxs aJohp9ic3miDTZgURvgV7 8zsNVwi0I7NUKciQR1FNI flVzzOkOtcA04 Oyc+PHAczWhjb9BwToreb 7jhs9ejmNr0EwrdACZteo FtwFphDNS3h9ZwKu1uDDQ dwKA6zLL3gB5v QkXvKxA6FHmlE389AlShp EWjNrxzW55rY9IpfTN+PH AsEnr2UVWbzFepRH0tX3Y hZGRpbmctbGVm eUpzGK3iGQJfbspjHSIzn P1dCDWrM2x3GjRhBhN8IU diR2QiJVZjxcszWh60jB4 eYjVeIzS6WUkg U0TpbfX6BDSsvSVvKSzwV CS5D19ej0E3KOHcLNKhZT Q4sGO1iY1pxSyntvwozKI mdDsgdmVydGlj IWrpVZmgQ880ULNqrIeoA kNvZGluZyBEYXRlOiAgMD YvMDUvMjAyNTwvdGQ+PHR pGWB5wHxlGLOt aLMtYXyiPp6blBrcbQtoM X4aVVYayvqvGKGvqS0uFR HilARgfCqaLP1xAQBtpfc zx916EiVaMQP5 FMXypABcR7UlkL6nLhWfP QXwOPItP9PmlJGuPTmjY4 23OJyuKsQ4CCKfxqMeN0V sLWFsaWduOiB0 e4K3Cc0Ta2GgpspvR3Gcl APrYpVzGczoROc2K3NsJr wvdHI+SM72LHCoHT82JSt 6YSM2iAzxJXwe UHSaS2QjtH6iDoRiDCYrG GRkOyc+PHRhYmxlIHdpZH RoPScxMDAlJyBzdHlsZT0 aUg1nQMUaMGOk pLzlvTQjNwNnn1oeGOBgI IhkUE0ioGaeX5PexFD6KW Zwx5f3Xt27V62bO1IrtWQ +KUCxiBH2zCJ6 bO2zDjWnHjF6UCmfG104B gAqaVUuZpcic2xrb2uqvT r9TjR1GSYgosEwbRpiOJL 7n9SzEf43Q23o IHdpZHRoPSIxNSUiIHZhb Wvqng8vjQ4eJw5+PGNvbC W7rRC0gQ1aFqRsQkA3EPr hO889JeHlbOVb Ttkbe6zmg7razAa6UmIuI HEalsMxhNawUOD5d1VoAw 88F9DijZcxa9VwLvh6nn5 3fMSxa1Y6fAC1 N9SqSGZzttvuyBYrjPjtA W5mLDXginryAGQiuB3qUX HaG4m3KdOvGnM3HXfgO9D vitH6GGOilEIq OGOwqXJZvN7rzkcts3aii lnoRoRyZNYkKIl3CMm5GD LyqVloCqHiSHP8WhS6CJV 2eQBpoY2wuHda lwzkiL3tMvf+NNT1xXRuy ZKXSW5bAafiiNP+PHRkIH Q7xEqfDIasXRNbfH7dEPK oE9w6PfOxDbR8 ZDcpK2LpvmR0MDSiyETjV CXexWWGoV6ulovxw5vsiy rhMrXnUDEmZCd3SSi3TPK saWduOiBsZWZ0 AhU0WZU5pSVsrN4sjCaqt zahtZ5xWby+QmlydGggRG M6EDb9V2AaYiw0MNDayIr oCY6nlCQpEAnu Zt9bdLhifJtuRB9cWOKnq icxm595MaRlk5obOUArbP FyIRveNOE6M81ee8A1SZF rUGXtAAC8oIG2 lY2snTreyyfqaTNunYckr nAvvEqpLNsxSQckM878KJ HrpPdpExQgFRb5I4JbOfh 8VLKebYmuUB9v bGNjFUsqOh1qgLhkdVhoK S5mYHRolyscq809TxQsm0 reQERmqXEcJNygIXX0Y61 ad3J9JLAbDGJc QEL6hTA2mH7twSywfaodd GVmdDsgdmVydGljYWwtYW miC499BCIwhVdcLvExrWn 8H1DiAed8PWIa dQefUL0evJUrZSwiYw6wh MhisEwcHV9gACRvamegq3 03PyRtl0zjZOFnwPReOMa tSYJ3H32zj2L5 PQRaBYXqVMM8gEP3gO9ks GlnbjogbGVmdDsgdmVydG bxDLhzRSbwU010EMZhkEx nPlBhdGllbnQg XZtnYWe3F7UyZcyyiSH+P U26QYUbBY05pNXsvSWzl0 ulmFf0MnDqWNOpWWL1vJc xROhpd5WvXRJu M15fiMSgs6X3QAYplRxly OQlMxPvfIE7iE9gGYrwab tbr4cyarplBjdvn5mwvu1 6hY83K69qKVyo ZHRoPSIzMCUiIHZhbGlnb m7fhO1yGv2+EDAfiNJ4mV U5qP8dRYUfVsF6JBnnC00 9InRvcCIvPjxj v5euk1kgpNi1McF9ORKvs mUynGufTFM2v5WgLh53L6 9sIHdpZHRoPSIyMCUiIHZ noNynnp5qjY4o Ii8+OGLmjDH7qYL9uJ6kF zBwBwD8HNgiY736MoIrwZ PhJpbwT65hR5JplXU+PHR aXav0EXRjpObc SK2uyPZzMXreIc6jOKL7Z kMgQeJsRLhwK4VxLBSmcr fojrculQW1IAPhWVYbvM3 6Ve9shPvyALVy vWNDmC6birapa6ynddsgG fSgIEVlEFr9TVk6CHSllS zcYzXfQHK7VqW0QNA2hXE sjZ6vkZlpaiek fG0uG4RwKQIpivraZb47q N4xRuZuFaB5INoePbq+TU 0GTRpyI7JKMGVGBPEHB5C EUM04G6XdYsz2 AJQmaBvkOE3feGYeCMbuD a3cnIpovXmaRC2dAYSxkq xgYTKevD3yUBPsnTJbiZu aLZ0jCRMilpas n136BaMgGEV8SBDpzTBsT 3NiqC3hFlZoOJIbLDYjD6 XglADiQLvqS664IHyeYzA 1VHRxtcGdM4Jk CFShpEobNeH2d5E6Jg1rW T1qJe2vPQhiZL22HT98hT Trg9F0zXW0S2XcNCJstgd ihowruZN6KSSm DNMcjV24oTJhEIdlMk4ab 8X3l973EYAfQERziS70Xv 0kpSvcMJIvcUJVqM4ypuc wx8sobexsOvMf VERsYYt6GWm4DFHrsPmoN jKnZYW6RoI9DOV9mHBmlA 7vcDvehmmhuL7tDes+MzM pSZUhisJ5S4Ic Wuo3SEXnaDchBU8laXDaZ DjcBz3urHcdpNvnEV7uVB RtncxaZZVmoK1gVARrdWS zhSgxEH2vWEGj iykwd867DgPoNZP6FZLgw SLuH4XtcZ9xLiNtZOHiIR TuK7WfeJBwVXuvF991EOs rVlI2YGWeqvEu T6CbTSUssNruDrS3j0R2J m7MHM5IJAW5J9ZrTyk1PQ NgxCsvMJ4xjFOqJMugCq5 biJxxvMlmRP2a AEMtmcmvIZMiwN9rEAFtw DFvxTspTF1vXYAflqutl7 23GxZvGEK7XVFxrLEgW5C bwO8yLfXxTIKa CCLvS3EwcJNiKLayF159M HdmMvP1KCZaxfChB8DeSP UhpRxrIkQ1h2E3Sm8FBLp vdGQ+JR31sq77 X6FdKmvhIyj5CWOrKDB6g LK9gJ2qCHFhQLgyp1R4qJ N8D2NcnhVqso3xf6oiIGL tKIuxD19dcRDr o0T5SSIrzRC9FEFfnUggY rUesN84Tvc+PGNvbGdyb3 WhGkwcr3rmv1teeOr8UfT wJSIgdmFsaWdu KVJ8y8KkEc51W09sNPxlY HRoPSIzMCUiIHZhbGlnbj 8ppR0mLv4+FDJqnSG6aJB 8sJ5qOeHjVrD4 JWylA531BoAfbQBjSdlny 6srb4mhuTp5LyHbRHLpgf JhxWfmZSE2i0YzAm02O2A qtUbxz6XiUvs7 es17iXOmk9L1hKT4W8VqY IMhobgrsQOfqXdjYJ5xIC TvkghzUECyhR7yNDGaD4y 4GsWgTpF0HKnr B0DpstU6GAAabYBdDLPrn XWDcH2ncvupt8qkidysIm NuZNFhHVp3SJt3WWGaxSe zSaQmZRI3AkW8 KHN4yXOsgS0ljZrosisww G9wOyc+BDe4p9zucQGuRX 8woKF5OR39HE07yWJvv7E 3pKV0I8JaUVRy lnlruufsxTI5OYAbZSHtj W62De1obLddLx9gWZCiTN J6DKAtiNCdR6KmzL8uIeO gVAOnSSVoN6Wd bNLlJQoyL180HFlqUpF9M VIidnEqT5JeBTKqlZewVg H9l9N9Vp8CKB22BU20DQ8 7bOGsx5W6qNZ8 G9YyVQEefxyxbpgwtGC6K MXwTQXpvQ65Xq7aeAwiSi 5bQUSqEVQ5FDOmoYStA9K mlF3cWyKoYZWk TUExF7UdyBTaSEqdF671J WjbUaL2UYOfsmFeR4KyYV MvhJlvCtZ4v6B3Js2QMs9 6NY75JC31eTEv x6O3yPY3N8HvFZOaskrsh dqhkMQ8PYCuFQEaxX58Ts 2vfVgmQf1rSGUoOUO5CVU esOGnV3XqyM7m UpMtUQDnRKHqH3BvsVFmY TbjG364HPndBdH7SJLluh WdD6ZkLYHkqCzoMbP3e0S 9Se2GGEdbosf2 T8BsTwcyuQK+PH86SWHfX O63qYNagXUix4uyoRa8Pf OgHYXdOQF2rBpqCWcry8N rXXYbY54woPRu c2U (more content not included)... [facility] Provider Orderson 03-20-2025 Provider Orders [id number]#1. [id number] [facility] C Urineon 03-18-2025 C Urine >100,000 cfu/ml [...] <=2 Verified Tri/Sulf S <=2/38 Verified Normal [facility] Comment on above: Performed By: #### 6 [id number] #### [place] (DEFAULT) [address] [place] [address] Provider Orderson 03-16-2025 Provider Orders [id number]#1. [id number] Normal [facility] Cult,Bloodon 02-01-2025 Cult,Blood Specimen Description .BLOOD Special Requests Culture NO GROWTH 5 DAYS Report Status FINAL 02/01/2025 [facility] Comment on above: Performed By: #### B C #### [place] [id number] Fire Equipment Inspector Helper: Alejandro Salazar MD Cult,Blood Specimen Description .BLOOD Special Requests RIGHT HAND 1ML Culture NO GROWTH 5 DAYS Report Status FINAL 02/01/2025 [facility] Comment on above: Performed By: #### B C #### [address] [address] Fire Equipment Inspector Helper: Alejandro Salazar MD Coding Summaryon 01-30-2025 Coding Summary HTMLBase 64 WwbnunemJBn7uIe+PGhlY WQ+YZ4KFVXzE73niVZmdN 6nJ8YIYLhRKfsfRYMRUKh ICfGelmJuFX0ebITtCDSm IC8+MX0dARIeZbkztIIsb 3P6rZY3K44het8uCTcuuK Q5MLNeJoZxrxuar2etfMp 6IDcuNmluOyBt BGKvoA96JXT7sI43Kh81r VGxaHZll0fvvKc3UbAcID NaVIZ8nDqnYNhil8OqDXL uX05hpQUrd9E7 VODraRdrdMZbLeObxGO1w L7lZAdaaaxuk3nhygnuBz r5do08dDYge7J9gTU7Y5I aayF2WKUzvVYv DtafwIEReD4tjnmdh8bfu rpgWdNdQZRdASt6QRn2BE TvqNajHbWnOP69ZYK7GUY qtoJjX9ZgUYHg rNisVcE8i4I2Vh8MG9UWZ bwxS4BIQIGXSDypgEE+PC 63io47C3HzPjgeFhu2YET cSHO7cDP3sX9x VSPoEQhja2G3eEM5Y5Xnt zMyss7hr4fmDKHzZPeiM1 2xnOMjo1B2ZCTcmNM0VHH izJnyKfAsvJ56 Oyc+DSWryFqsi0HiEhmmg 5pmr5ckqFe7WuehCYCnxm EkeDkeSZT8i8NtIs6kEAI wwMR3yRE5uG3o GaMsWpV7PNhaX991ArFes UXtUdyvB23fG2VfmUT+PH EtWuy5ACYfiWypTR8bA6I hZGRpbmctbGVm iDieAS8gXFJjvkxpYCNxx H2zJKJkV8w8DaWwBmE5ZV kqU0SrOYHoqbjkYj13yQ0 jHzLoKlY2UHcc S8XyxzF5CJDcmMVtZOguQ HO3F48zc7I4FDSyTWGgYG F9qOX4tK2vpPwahqkzsIL mdDsgdmVydGlj VCcjVZxtJ130QAEqvXelR kNvZGluZyBEYXRlOiAgMD QvMTQvMjAyNTwvdGQ+PHR lFJN5wUdzYSTw bTAgDNupOf8klSzdfFzmL X0mQDRdqxxaXRWsiJ8jPH WdqELbqDqjVC8iPOKfmyo il747HwQwQXG1 XBUxkHUlC2DwwH9nBrRwR NGfZGUiJ2XnmVNyDIccU4 36EGnhKpQ7XVGsduKeV7U sLWFsaWduOiB0 x2D2Xl7Bx7CerjmxA4Uth DVgBqWeZmxsKBf9G0VpRs wvdHI+VD58VBWrSF64SVf 6KZS6xWknDOgc UQYwM8RcrK9dSyWeMBEyT GRkOyc+PHRhYmxlIHdpZH RoPScxMDAlJyBzdHlsZT0 rWi0fLHAmKUWx kBbhmZJjYkPov4whFUPwG PjuCK2ixPvzV2PieEK0QS Xwf1w8Bi64G34zW7RvqRP +OMNjvVF1aYZ1 jT3tEwDwLzO5SSmoL825P jTjnTMvGpljd8emw4emfW v6KbC7RVBmrdQqgNsxXZJ 9d4GnQp86W01i IHdpZHRoPSIxNSUiIHZhb Tuunt0lmD8dEs4+PGNvbC W2eZC8fJ1wFzAuNbD9TIn hK577AdHjgTGl Nmjck6fpc0anpCx2EgAxJ URgvzUtmJigAAT1u1YlVh 80Y7RxcTlzi5TwVbz7bz7 1pXCxf9T4bIJ6 C5PkZYAfdzgbtHTngWffQ Z4mKBArltgqKKOmyY7mMO WzT8h9DdQqDsE1GSfiA1E qtuH2WTIipLQd PQEykHVJaO8wlkqrt2pda efsIrGeKMAvIYj7NDt7WE NgzDdoMlDeTNR4UhD3GOI 7qORsjC4taSmr htnpuA1mOcn+WXR7hCGra AZZMK5fDpzjlBP+PHRkIH B7vExcQDncKNTwkZ5hCPY yU4f0KxBsCtF6 FMyvG8UlczL5UVEwcDIjN WMluGGVmL0hlqbkf7aopy pmPgHjLSXoXIy1GZp7RCG saWduOiBsZWZ0 FmN5CQD7sWVevI0nvHijp ggvuX6pClj+QmlydGggRG P9AWw0G1IpGge6RDCncVu uMI4zxTNpYZyh De7rqMfymOalZL1rYJXwe vasd948GbZzx7xiUGAfzO PeYUusQLN9K52ie9Z3VLE mMVTsIUO6qTZ1 oD4lwYlzuailyBZohTnoq gHdsBkjYSklMPwxF482MM VamXovWdTkEIi3Q9OmOfl 2TFDryUsnIW2y gPNbASdwZe5dqHjgxZncP V7fTOZqiafkw890YgTny5 hsTQPcoDJgFTtdNFR6M68 fs9I2WIRhZVSi MTM6tXZ3zN6yuQrueezyy GVmdDsgdmVydGljYWwtYW ucN209URRuzPwxChYrgFj 6D8VrVyn3JTHb kTffPF0ffJKcXUrjTe4zl WibxUizOY0cUDHikbfvk3 36RtTon3ziFQJehGRbHTl vODU5H78wo7T2 HAPpRWJkPOB8dAP9hA9kv GlnbjogbGVmdDsgdmVydG bxSKmvLJmlW614DEPepIv nPlBhdGllbnQg VIusZYp2V9WwGwceoYJ+P U67YWEiVE29pSUtaIEnz0 mmuBs8BsMjMKKvTJY3wRz fLIqay2BeHFRs Y72atIXde2N2PAGwkMqgp AIkNoLegRO6xU5bOCizha ykm4ubmlrsTqluu0vusw6 3fG18X16rIZso ZHRoPSIzMCUiIHZhbGlnb g7fxN4nVk3+IGLpaSE7bU O6cO7gARVnPuP3OZxpK73 9InRvcCIvPjxj m3tkm0qmcYq9TrX3JDLkj mCjaSfkALW9t0YzQo24M0 9sIHdpZHRoPSIyMCUiIHZ vfOkkmw5wiM0x Ii8+POTurXL9tQB7yN4lW aXtTvH9FGyaG351GnAhzZ SwCnmmR29kE1AvfMS+PHR uAll5ACOzbRoa IL1asUOyUYjrPn7dLZQ3H pFjRbTiTVheH8OkSFEcsj erdujrfZC0ASJpMAYqvV2 8Vp9fbDdpOYFl sLMNfO3ficjgl1clawzrK fDeWJCkPIg2BSr0MSHscC mpYiOeUQB3OjL9XMJ1vJS veR1ipFvqhkvj pZ7lY4EcFNTdcvlkZy03u D4iXcOjJfA8DZoiKgk+TU 7KIBrpX6MYMCWHGLZFO5D DGO35N6TjQcm9 DLPpeAfiYL8bgUMeJYzvI l5gkAjwbJtqFN5sBFGdfy cqOQZivW2lEJOjjVTteSl kMV0fYKWxlzdw f211MdXdPVL2NVRbxZZwG 8NulS8fBeQoAESjWPOaV9 NoeYBfNWrhC068QYgfDqE 5GNPnncTdX8Xy LXNiwOelTeB8f1V5Vw4lQ A9bWq8cCAfuZW63AZ79aJ Jbg7I9qMN0T4WzVMBlxfe kfepadYY0CJNq RJYynN54aKJeMJopCx0yp 2H2t829VPAvVVDhhT23Pv 2yrQkxDTQacNTXhA5ndds ad4xadtrjOnRu EVLxKBn8RRm4JPJoaEwmF sNiLOT0FeK2ROB3oDAhvS 5obItouasugQ8mGfi+MzM zCOQbvuO4B8Ao Nbw4GWNkfOahYJ3doZDjJ TlqJj5laKorfGkeDQ0kOC EzrnubFMYbkQ1zNJLmkRY spLbsQT1bZCRs scjcs805PsAyDSL9EXPqc HMsM1PbmN0hDeGsVHTgOX DjP2ByzWZlNEttR364GOt dIwB3ESFthmCc S1OeUTAfyXdoByI8h2C1J p4UTH4EMFX4R7RnYfy9XW ZeyKtgZF5nuPMlDZrsFj4 qgRhozUlzJW3w OSJaxjqlCWJdjI4lBWNur CPosHmsNS2mXLDxdotdf6 38BhGbJMR2RGKdwUZhL6N tpC0sOnYzQJJw OSQnZ8KyvWVwTRcfY884C WkfExP1ZFHgeoUjF1RzUF RejAimOvK4a6E1Iv8SlTI pT1YeC4j7W5Cv PjwvdHI+JJ98PQNrOO10v DEbjAEop0uoqZm9LjCnTX QbNHG5dQbsPVxzt7KnCIC nK81lpQJhq3E0 XWRaiGvldXKgDeXnsOJ8h F2hOIuueuitr8hquzhmQg xlb9ynvy42lP99V94xQXh pZHRoPSIzMCUi UUEsqVqewq4frO1yEs1+P GNenKX4tBI5lZ6aJcUrKu V0RIqxJ933XrIxpLXrReg hp4rha9sazSu6 HsBoOOMsmvCuvQlgCIH3y 3SzQn55V49uKYmxRFBmIE YsGMQyMIBjpRkmgn5dwT9 wIi8+SY6pa1wm fy85jB71mAY+WBPbWYF7c FagIOmeETKqrD2uGNyuVm B7KTGfZuRvhQ50cRYmBLb kIu9rjLbeyEjo XC8vSTDevgefv505PcFkc 0brPQOesSFkKSbnGTV0S0 3xs5R2PWGtSGCiPEB7aZC 1wS7rpLxsltrm bGVmdDsgdmVydGljYWwtY ZorI848QLQbrAvvXeCjsB RpW9kmpmHANG5qFmpbyON +ZSFbIYT2hWtx YXrlZWGxoT7kIEQeX9o5E bQgUbV7AXxiL7FthjG4WZ EzpYBfRSRhcPQBcX4ergz op6yzvxxlPfUl UYBgXMg8DIu5QKAznRcnQ rRaCAM0RoE0CFM1zDHkbH 3cmMjjpcgdwW8jNax+Rkl OOjwvdGQ+PHRk KAO7rCvtMOmwIABzsR2uN TOvH2a1ZqDeJhA9WOfxV3 EvveF7ZLVgzKKeZDXkcKP GkM1sxnecx1ui ovkxBbGiWTOlDPr1JHh1A GFygPbfMpClFSM7TrG7ER V9yDIboL2emApybiqspI3 wOyc+TVJOOjwv dGQ+HJAwPDE6cMbyVJigE XGomU9kRERqT3o7UjSrIv I1OGkiS3EwriX3NYOfsPQ oUVFdiMEByO4s mkrmj6xjyqgwFzSvDVImF Rb7BEa7ZBXzwYcrBlXsCX C7OiT0QWU8rNOvzU8dqXt nyjxmjN6dDsr+ XER1HLB3ZR82VJ30D4QsQ jwvdGFibGU+PHRhYmxlIH dpZHRoPScxMDAlJyBzdHl gQH9tUl2dYBPj LWN (more content not included)... Normal [facility] C Urineon 01-28-2025 C Urine Urine Culture ordere d as a result of parameters set on specific urine dip and urine microsopic results. Mixed skin, or urogenital daiana. Clinically insignificant [facility] Comment on above: Performed By: #### [id number], [id number] #### [place] (DEFAULT) [address] [place] [address] Cult,Urineon 01-28-2025 Cult,Urine Specimen Description .BLADDER URINE FROM CYSTOSCOPY Special Requests Site: Urine Culture NO GROWTH Report Status FINAL 01/28/2025 Normal [facility] Comment on above: Performed By: #### B MP #### [address] [address] [employer] Helper: Alejandro Salazar MD Culture, Urineon 01-28-2025 Microorganism identified Cx Nom (Unsp spec) NO GROWTH [facility] Service comment (Unsp spec) [Interp] Site: Urine [facility] Specimen Description .BLADDER URINE FROM CYSTOSCOPY [facility] Basic Metabolic Profon 01-27 Anion gap [Moles/Vol] 9 mmol/L Normal 9-16 [facility] Comment on above: Performed By: #### B MP #### [address] [address] [employer] Helper: Alejandro Salazar MD Calcium [Mass/Vol] 8.3 mg/dL Low 8.6-10.4 [facility] Comment on above: Performed By: #### B MP #### [facility] [employer] [address] [place] [address] [employer] Helper: Alejandro Salazar MD Chloride [Moles/Vol] 108 mmol/L High 98-107 [facility] Comment on above: Performed By: #### B MP #### [facility] [employer] [address] [place] [address] [employer]per: Alejandro Salazar MD CO2 [Moles/Vol] 22 mmol/L Normal 20-31 [facility] Comment on above: Performed By: #### B MP #### [facility] [employer] [address] [place] [address] [employer]: Alejandro Salazar MD Creatinine [Mass/Vol] 0.7 mg/dL Normal 0.6-0.9 [facility] Comment on above: Performed By: #### B MP #### [address] [address] [employer] Helper: Alejandro Salazar MD GFR/1.73 sq M.predicted among non-blacks MDRD (S/P/Bld) [Vol rate/Area] mL/min/{1.73_m2} Normal >60 [facility] Comment on above: Result Comment: These results [...] secretion. Performed By: #### B MP #### [facility] [employer] [address] [place] [address] [employer]per: Alejandro Salazar MD Glucose [Mass/Vol] 85 mg/dL Normal 74-99 [facility] Comment on above: Performed By: #### B MP #### [address] [address] [employer] Helper: Alejandro Salazar MD Potassium [Moles/Vol] 3.9 mmol/L Normal 3.7-5.3 [facility] Comment on above: Performed By: #### B MP #### [facility] [employer] [address] [place] [address] [employer] Helper: Alejandro Salazar MD Sodium [Moles/Vol] 139 mmol/L Normal 136-145 [facility] Comment on above: Performed By: #### B MP #### [facility] [employer] [address] [place] [address] [employer] Helper: Alejandro Salazar MD Urea nitrogen [Mass/Vol] 11 mg/dL Normal 6-20 [facility] Comment on above: Performed By: #### B #### [facility] [employer] [address] [place] [address] [employer] Helper: Alejandro Salazar MD Basic metabolic panelon 01-17 Anion gap [Moles/Vol] 9 mmol/L 9 - 16 mmol/L [facility] Calcium [Mass/Vol] 8.3 mg/dL Low 8.6 - 10. 4 mg/dL [facility] Chloride [Moles/Vol] 108 mmol/L High 98 - 10 7 mmol/L [facility] CO2 [Moles/Vol] 22 mmol/L 20 - 31 mmol/L [facility] Creatinine [Mass/Vol] 0.7 mg/dL 0.6 - 0.9 mg/dL [facility] Perzo Est, Glohayley Lundt Rate - PINF [facility] Comment on above: These results are not [...] [Mass/Vol] 85 mg/dL 74 - 99 mg/dL [facility] Interpretation and review of laboratory results Abnormal [facility] Potassium [Moles/Vol] 3.9 mmol/L 3.7 - 5.3 mmol/L [facility] Sodium [Moles/Vol] 139 mmol/L 136 - 145 mmol/L [facility] Urea nitrogen [Mass/Vol] 11 mg/dL 6 - 20 mg/dL [facility] CBC auto differentialon 01-17 Basophils (Bld) [#/Vol] 0.04 10*3/uL [facility] Basophils/100 WBC (Bld) 1 % 0 - 2 % [facility] Eosinophils (Bld) [#/Vol] 0.14 10*3/uL [facility] Eosinophils/100 WBC (Bld) 4 % 1 - 4 % [facility] Erythrocyte distribution width (RBC) [Ratio] 12.6 % 11.8 - 14.4 % [facility] Hematocrit (Bld) [Volume fraction] 34.2 % Low 36.3 - 47.1 % [facility] Hemoglobin (Bld) [Mass/Vol] 10.7 g/dL Low 11.9 - 15.1 g/dL [facility] Immature granulocytes (Bld) [#/Vol] [facility] Immature granulocytes/100 WBC (Bld) 0 % 0 [facility] Interpretation and review of laboratory results Abnormal [facility] Lymphocytes/100 WBC (Bld) 55 % High 24 - 43 % [facility] Lymphocytes/100 WBC (Bld) 2.11 % [facility] MCH (RBC) [Entitic mass] 27.1 pg 25.2 - 33.5 pg [facility] MCHC (RBC) [Mass/Vol] 31.3 g/dL 28.4 - 34.8 g/dL [facility] MCV (RBC) [Entitic vol] 86.6 fL 82.6 - 102.9 fL [facility] Monocytes/100 WBC (Bld) 9 % 3 - 12 % [facility] Monocytes/100 WBC (Bld) 0.35 % [facility] Neutrophils/100 WBC (Bld) 31 % Low 36 - 65 % [facility] Nucleated RBC/100 WBC (Bld) [Ratio] 0 % 0.0 per 100 WBC [facility] Platelet mean volume (Bld) [Entitic vol] 9.1 fL 8.1 - 13.5 fL [facility] Platelets (Bld) [#/Vol] 238 10*3/uL [facility] RBC (Bld) [#/Vol] 3.95 10*6/uL 3.95 - 5.1 1 m/uL [facility] Segmented neutrophils/100 WBC (Bld) 1.21 % Low [facility] WBC other (Bld) [#/Vol] 3.9 [facility] CBC with Diffon 01-27-2025 Abs. Basophil 0.04 k/uL Normal 0.00-0.20 [facility] Comment on above: Performed By: #### B MP #### [address] [address] [employer] Helper: Alejandro Salazar MD Abs.Imm.Granulocyte <0.03 Normal 0.00-0.30 [facility] Comment on above: Performed By: #### B MP #### [place] [address] [employer] Helper: Alejandro Salazar MD Abs.Neutrophil (Seg) 1.21 k/uL Low 1.50-8.10 [facility] Comment on above: Performed By: #### B MP #### [place] [address] [employer] Helper: Alejandro Salazar MD Basophils/100 WBC (Bld) 1 % Normal 0-2 [facility] Comment on above: Performed By: #### B MP #### [place] [address] [employer] Equipment Inspector Helper: Alejandro Salazar MD Eosinophils (Bld) [#/Vol] 0.14 10*3/uL Normal 0.00-0.44 [facility] Comment on above: Performed By: #### B MP #### [address] [address] [employer] Equipment Inspector Helper: Alejandro Salazar MD Eosinophils/100 WBC (Bld) 4 % Normal 1-4 [facility] Comment on above: Performed By: #### B MP #### [address] [address] [employer] Equipment Inspector Helper: Alejandro Salazar MD Erythrocyte distribution width (RBC) [Ratio] 12.6 % Normal 11.8-14.4 [facility] Comment on above: Performed By: #### B MP #### [address] [address] [employer] Equipment Inspector Helper: Alejandro Salazar MD Hematocrit (Bld) [Volume fraction] 34.2 % Low 36.3-47.1 [facility] Comment on above: Performed By: #### B MP #### [address] [address] Fire Equipment Inspector Helper: Alejandro Salazar MD Hemoglobin (Bld) [Mass/Vol] 10.7 g/dL Low 11.9-15.1 [facility] Comment on above: Performed By: #### B MP #### [address] [address] Fire Equipment Inspector Helper: Alejandro Salazar MD Immature granulocytes/100 WBC (Bld) 0 % Normal 0 [facility] Comment on above: Performed By: #### B MP #### [address] [address] Fire Equipment Inspector Helper: Alejandro Salazar MD Lymphocytes (Bld) [#/Vol] 2.11 10*3/uL Normal 1.10-3.70 [facility] Comment on above: Performed By: #### B MP #### [address] [address] Fire Equipment Inspector Helper: Alejandro Salazar MD Lymphocytes/100 WBC (Bld) 55 % High 24-43 [facility] Comment on above: Performed By: #### B MP #### [address] [address] Fire Equipment Inspector Helper: Alejandro Salazar MD MCH (RBC) [Entitic mass] 27.1 pg Normal 25.2-33.5 [facility] Comment on above: Performed By: #### B MP #### [address] [address] Fire Equipment Inspector Helper: Alejandro Salazar MD MCHC (RBC) [Mass/Vol] 31.3 g/dL Normal 28.4-34.8 [facility] Comment on above: Performed By: #### B MP #### [address] [address] Fire Equipment Inspector Helper: Alejandro Salazar MD MCV (RBC) [Entitic vol] 86.6 fL Normal 82.6-102.9 [facility] Comment on above: Performed By: #### B MP #### [address] [address] Fire Equipment Inspector Helper: Alejandro Salazar MD Monocytes (Bld) [#/Vol] 0.35 10*3/uL Normal 0.10-1.20 [facility] Comment on above: Performed By: #### B MP #### [address] [address] Fire Equipment Inspector Helper: Alejandro Salazar MD Monocytes/100 WBC (Bld) 9 % Normal 3-12 [facility] Comment on above: Performed By: #### B MP #### [address] [address] Fire Equipment Inspector Helper: Alejandro Salazar MD Neutrophil (Seg) 31 % Low 36-65 [facility] Comment on above: Performed By: #### B MP #### [address] [address] Fire Equipment Inspector Helper: Alejandro Salazar MD NRBC Automated 0.0 per 100 WBC Normal 0.0 [facility] Comment on above: Performed By: #### B MP #### [address] [address] Fire Equipment Inspector Helper: Alejandro Salazar MD Platelet mean volume (Bld) [Entitic vol] 9.1 fL Normal 8.1-13.5 [facility] Comment on above: Performed By: #### B MP #### [facility] [place] [address] Fire Equipment Inspector Helper: Alejandro Salazar MD Platelets (Bld) [#/Vol] 238 10*3/uL Normal 138-453 [facility] Comment on above: Performed By: #### B MP #### [facility] [address] [place] [address] Fire Equipment Inspector Helper: Alejandro Salazar MD RBC (Bld) [#/Vol] 3.95 10*6/uL Normal 3.95-5.11 [facility] Comment on above: Performed By: #### B MP #### [facility] [address] [place] [address] Fire Equipment Inspector Helper: Alejandro Salazar MD WBC (Bld) [#/Vol] 3.9 10*3/uL Normal 3.5-11.3 [facility] Comment on above: Performed By: #### B MP #### [facility] [employer] [address] [place] [address] Fire Equipment Inspector Helper: Alejandro Salazar MD Consent Formson 01-27-2025 Consent Forms [id number]. [id number] [facility] Cult,Urineon 01-27-2025 Cult,Urine Specimen Description .URINE Culture NO SIGNIFICANT GROWTH Report Status FINAL 01/27/2025 Normal [facility] Comment on above: Performed By: #### B MP #### [facility] [employer] [address] [place] [address] Fire Equipment Inspector Helper: Alejandro Salazar MD Culture, Urineon 01-27-2025 Microorganism identified Cx Nom (Unsp spec) NO SIGNIFICANT GROWTH [facility] .[facility] FLUORO FOR SURGICAL PROCEDUR ESon 01-27-2025 FLUORO FOR SURGICAL PROCEDURES Radiology exam is complete. No Radiologist dictation. Please follow up with ordering provider. Final result Normal [facility] Guidance-- during surgeryon 01-27-2025 Radiology exam is complete. No Radiologist dictation. Please follow up with ordering provider. MHPN RIS CONSOLIDATED .Auto Diff 1on 01-26-2025 Auto [place] % 10 % Normal 1-12 [facility] Comment on above: Performed By: #### 7 221618, [id number], [id number], 90728531, [id number] #### [place] (DEFAULT) [address] [place] [address] Baso Abs# 0.0 x10 Normal 0.0-0.2 [facility] Comment on above: Performed By: #### 7 632078, [id number], 6669309158, 37074897, 976392632 #### [place] (DEFAULT) [address] [place] [address] Basophils/100 WBC (Bld) 0.7 % Normal 0.2-2.0 [facility] Comment on above: Performed By: #### 7 633337, [id number], [id number], 74079384, 059005203 #### [place] (DEFAULT) [address] [place] [address] Eos Abs# 0.1 x10 Normal 0.0-0.4 [facility] Comment on above: Performed By: #### 7 202424, [id number], 4225990059, 56931295, 276251008 #### [place] (DEFAULT) [address] [place] [address] Eosinophils/100 WBC (Bld) 2.4 % Normal 0.9-4.0 [facility] Comment on above: Performed By: #### 7 598319, [id number], 3566524184, 77707101, 826673219 #### [place] (DEFAULT) [address] [place] [address] Lymph Abs# 1.8 x10 Normal 1.3-2.9 [facility] Comment on above: Performed By: #### 7 467515, 2267106867, 3613223234, 46186995, 593664925 #### [place] (DEFAULT) [address] [place] [address] Lymphocytes/100 WBC (Bld) 38 % Normal 14-48 [facility] Comment on above: Performed By: #### 7 727167, [id number], 6201751964, 37977460, 413707469 #### [place] (DEFAULT) [address] [place] [address] [place] Abs# 0.5 x10 Normal 0.0-0.8 [facility] Comment on above: Performed By: #### 7 776039, [id number], 0064466076, 26448643, 539740948 #### [place] (DEFAULT) [address] [place] [address] Neut Abs# 2.4 x10 Normal 1.5-9.2 [facility] Comment on above: Performed By: #### 7 186030, [id number], 6620210634, 26843614, 972572384 #### [place] (DEFAULT) [address] [place] [address] Neutrophils/100 WBC (Bld) 49 % Normal 44-88 [facility] Comment on above: Performed By: #### 7 982093, [id number], 9681535933, 59941533, 025486130 #### [place] (DEFAULT) [address] [place] [address] Basic Metabolic Panelon 04-1 0 Anion gap [Moles/Vol] 12 mmol/L 9 - 16 mmol/L [facility] Calcium [Mass/Vol] 8.6 mg/dL 8.6 - 10. 4 mg/dL [facility] Chloride [Moles/Vol] 106 mmol/L 98 - 10 7 mmol/L [facility] CO2 [Moles/Vol] 21 mmol/L 20 - 31 mmol/L [facility] Creatinine [Mass/Vol] 0.9 mg/dL 0.6 - 0.9 mg/dL [facility] Est, Glom Filt Rate 87 - PINF [facility] Comment on above: These results are not [...] 126 mg/dL High 74 - 99 mg/dL [facility] Interpretation and review of laboratory results Abnormal [facility] Potassium [Moles/Vol] 3.7 mmol/L 3.7 - 5.3 mmol/L [facility] Sodium [Moles/Vol] 139 mmol/L 136 - 145 mmol/L [facility] Urea nitrogen [Mass/Vol] 12 mg/dL 6 - 20 mg/dL [facility] Basic Metabolic Profon 01-26 Anion gap [Moles/Vol] 12 mmol/L Normal 9-16 [facility] Comment on above: Performed By: #### B MP #### [facility] [employer] [address] [place] [address] Fire Equipment Inspector Helper: Alejandro Salazar MD Calcium [Mass/Vol] 8.6 mg/dL Normal 8.6-10.4 [facility] Comment on above: Performed By: #### B MP #### [facility] [employer] [address] [place] [address] Fire Equipment Inspector Helper: Alejandro Salazar MD Chloride [Moles/Vol] 106 mmol/L Normal 98-107 [facility] Comment on above: Performed By: #### B MP #### [facility] [employer] [address] [place] [address] Fire Equipment Inspector Helper: Alejandro Salazar MD CO2 [Moles/Vol] 21 mmol/L Normal 20-31 [facility] Comment on above: Performed By: #### B MP #### [facility] [employer] [address] [place] [id number] Fire Equipment Inspector Helper: Alejandro Salazar MD Creatinine [Mass/Vol] 0.9 mg/dL Normal 0.6-0.9 [facility] Comment on above: Performed By: #### B MP #### [facility] [employer] [address] [place] [address] Fire Equipment Inspector Helper: Alejandro Salazar MD GFR/1.73 sq M.predicted among non-blacks MDRD (S/P/Bld) [Vol rate/Area] 87 mL/min/{1.73_m2} Normal >60 [facility] Comment on above: Result Comment: These results [...] secretion. Performed By: #### B MP #### [facility] [employer] [address] [place] [address] Fire Equipment Inspector Helper: Alejandro Salazar MD Glucose [Mass/Vol] 126 mg/dL High 74-99 [facility] Comment on above: Performed By: #### B MP #### [address] [address] Fire Equipment Inspector Helper: Alejandro Salazar MD Potassium [Moles/Vol] 3.7 mmol/L Normal 3.7-5.3 [facility] Comment on above: Performed By: #### B MP #### [facility] [employer] [address] [place] [address] Fire Equipment Inspector Helper: Alejandro Salazar MD Sodium [Moles/Vol] 139 mmol/L Normal 136-145 [facility] Comment on above: Performed By: #### B MP #### [address] [address] Fire Equipment Inspector Helper: Alejandro Salazar MD Urea nitrogen [Mass/Vol] 12 mg/dL Normal 6-20 [facility] Comment on above: Performed By: #### B MP #### [employer] [address] [place] [address] Fire Equipment Inspector Helper: Alejandro Salazar MD [facility] 01-26-2025 Erythrocyte distribution width (RBC) [Ratio] 12.7 % 11.8 - 14.4 % [facility] Hematocrit (Bld) [Volume fraction] 38.1 % 36.3 - 47.1 % [facility] Hemoglobin (Bld) [Mass/Vol] 12 g/dL 11.9 - 15.1 g/dL [facility] MCH (RBC) [Entitic mass] 27.9 pg 25.2 - 33.5 pg [facility] MCHC (RBC) [Mass/Vol] 31.5 g/dL 28.4 - 34.8 g/dL [facility] MCV (RBC) [Entitic vol] 88.6 fL 82.6 - 102.9 fL [facility] Nucleated RBC/100 WBC (Bld) [Ratio] 0 % 0.0 per 100 WBC [facility] Platelet mean volume (Bld) [Entitic vol] 9 fL 8.1 - 13.5 fL [facility] Platelets (Bld) [#/Vol] 261 10*3/uL [facility] RBC (Bld) [#/Vol] 4.3 10*6/uL 3.95 - 5.1 1 m/uL [facility] WBC other (Bld) [#/Vol] 5.9 [facility] Erythrocyte distribution width (RBC) [Ratio] 12.7 % Normal 11.8-14.4 [facility] Comment on above: Performed By: #### B MP #### [employer] [address] [place] [address] Fire Equipment Inspector Helper: Alejandro Salazar MD Hematocrit (Bld) [Volume fraction] 38.1 % Normal 36.3-47.1 [facility] Comment on above: Performed By: #### B MP #### [employer] [address] [place] [address] Fire Equipment Inspector Helper: Alejandro Salazar MD Hemoglobin (Bld) [Mass/Vol] 12.0 g/dL Normal 11.9-15.1 [facility] Comment on above: Performed By: #### B MP #### [address] [address] Fire Equipment Inspector Helper: Alejandro Salazar MD MCH (RBC) [Entitic mass] 27.9 pg Normal 25.2-33.5 [facility] Comment on above: Performed By: #### B MP #### [address] [address] Fire Equipment Inspector Helper: Alejandro Salazar MD MCHC (RBC) [Mass/Vol] 31.5 g/dL Normal 28.4-34.8 [facility] Comment on above: Performed By: #### B MP #### [address] [address] Fire Equipment Inspector Helper: Alejandro Salazar MD MCV (RBC) [Entitic vol] 88.6 fL Normal 82.6-102.9 [facility] Comment on above: Performed By: #### B MP #### [address] [address] Fire Equipment Inspector Helper: Alejandro Salazar MD NRBC Automated 0.0 per 100 WBC Normal 0.0 [facility] Comment on above: Performed By: #### B MP #### [address] [address] Fire Equipment Inspector Helper: Alejandro Salazar MD Platelet mean volume (Bld) [Entitic vol] 9.0 fL Normal 8.1-13.5 [facility] Comment on above: Performed By: #### B MP #### [address] [address] Fire Equipment Inspector Helper: Alejandro Salazar MD Platelets (Bld) [#/Vol] 261 10*3/uL Normal 138-453 [facility] Comment on above: Performed By: #### B MP #### [address] [address] Fire Equipment Inspector Helper: Alejandro Salazar MD RBC (Bld) [#/Vol] 4.30 10*6/uL Normal 3.95-5.11 [facility] Comment on above: Performed By: #### B MP #### [address] [address] Fire Equipment Inspector Helper: Alejandro Salazar MD WBC (Bld) [#/Vol] 5.9 10*3/uL Normal 3.5-11.3 [facility] Comment on above: Performed By: #### B MP #### [address] [address] Fire Equipment Inspector Helper: Alejandro Salazar MD CBC w/ Auto Diffon Erythrocyte distribution width (RBC) [Ratio] 13.6 % Normal 11.5-15.0 [facility] Comment on above: Performed By: #### 7 512412, [id number], 9648791501, 76708651, 195702734 #### [place] (DEFAULT) [address] [place] [address] Hematocrit (Bld) [Volume fraction] 37.0 % Normal 33.7-40.4 [facility] Comment on above: Performed By: #### 7 380770, [id number], 6242158105, 79495147, 801895655 #### [place] (DEFAULT) [address] [place] [address] Hemoglobin (Bld) [Mass/Vol] 12.7 g/dL Normal 11.3-15.9 [facility] Comment on above: Performed By: #### 7 810906, 2394462356, 1106074325, 83971744, 104242661 #### [place] (DEFAULT) [address] [place] [address] Man Diff? Auto Invalid Interpretation Code [facility] Comment on above: Performed By: #### 7 718466, [id number], 1225318584, 47288162, 082627180 #### [place] (DEFAULT) [address] [place] [address] MCH (RBC) [Entitic mass] 29 pg Normal 24-34 [facility] Comment on above: Performed By: #### 7 891113, 3855788388, 1864134646, 36900612, 616872072 #### [place] (DEFAULT) [address] [place] [address] MCHC (RBC) [Mass/Vol] 34 g/dL Normal 26-37 [facility] Comment on above: Performed By: #### 7 105422, [id number], 4887105087, 99152828, 288947876 #### [place] (DEFAULT) [address] [place] [address] MCV (RBC) [Entitic vol] 84 fL Normal 81-100 [facility] Comment on above: Performed By: #### 7 534457, 0010530855, 7105032127, 77123970, 726835225 #### [place] (DEFAULT) [address] [place] [address] Platelet 287 x10 Normal 138-427 [facility] Comment on above: Performed By: #### 7 911280, 8230983943, 4285742962, 75621278, 730820641 #### [place] (DEFAULT) [address] [place] [address] Platelet mean volume (Bld) [Entitic vol] 7.3 fL Normal 6.3-10.2 [facility] Comment on above: Performed By: #### 7 015058, 4697236255, 4249284996, 75495579, 346870984 #### [place] (DEFAULT) [address] [place] [address] RBC 4.39 x10 Normal 3.70-5.30 [facility] Comment on above: Performed By: #### 7 511263, 0062007031, 1301888100, 31735763, 063955907 #### [place] (DEFAULT) [address] [place] [address] WBC 4.8 x10 Normal 3.5-10.5 [facility] Comment on above: Performed By: #### 7 039288, 2818326451, 4169175297, 26721848, 485516686 #### [place] (DEFAULT) [address] [place] [address] CMP Standardon 01-26-2025 eGFR Non AA >60 Invalid Interpretation Code [facility] Comment on above: Performed By: #### 7 976177, 1713149656, 2805419209, 36356767, 236557717 #### [place] (DEFAULT) [address] [place] [address] eGFR AA >60 Invalid Interpretation Code [facility] Comment on above: Performed By: #### 7 356859, 3661002644, 7794019652, 22078105, 547580629 #### [place] (DEFAULT) [address] [place] [address] Albumin [Mass/Vol] 3.7 g/dL Normal 3.5-5.0 [facility] Comment on above: Performed By: #### 7 117606, 9630777608, 0965030215, 18044175, 118124854 #### [place] (DEFAULT) [address] [place] [address] Albumin/Globulin [Mass ratio] 1.0 {ratio} Low 1.4-2.6 [facility] Comment on above: Performed By: #### 7 493694, 5965667103, 6355783799, 90252223, 081099847 #### [place] (DEFAULT) [address] [place] [address] Alk Phos 70 IU/L Normal 32-91 [facility] Comment on above: Performed By: #### 7 348632, 8346207268, 8472646345, 06673509, 972784560 #### [place] (DEFAULT) [address] [place] [address] ALT [Catalytic activity/Vol] 75.0 U/L High 14.0-54.0 [facility] Comment on above: Performed By: #### 7 270314, 7436725387, 2078122367, 53162828, 797317950 #### [place] (DEFAULT) [address] [place] [address] AST [Catalytic activity/Vol] 27 U/L Normal 15-41 [facility] Comment on above: Performed By: #### 7 534868, 8593166392, 5384351329, 18687227, 866319844 #### [place] (DEFAULT) [address] [place] [address] Bili Total 0.7 mg/dL Normal 0.3-1.2 [facility] Comment on above: Performed By: #### 7 185307, 3106233961, 3670946725, 52037179, 851521672 #### [place] (DEFAULT) [address] [place] [address] Creatinine [Mass/Vol] 0.94 mg/dL Normal 0.60-1.30 [facility] Comment on above: Performed By: #### 7 475323, 1055235460, 4429246429, 56145419, 437851591 #### [place] (DEFAULT) [address] [place] [address] Globulin (S) [Mass/Vol] 3.5 g/dL Normal 1.5-4.3 [facility] Comment on above: Performed By: #### 7 328331, 8430972571, 3249945127, 30446098, 202343821 #### [place] (DEFAULT) [address] [place] [address] Osmolality 277 mOsm/L Invalid Interpretation Code [facility] Comment on above: Performed By: #### 7 482040, 5959129965, 4258900659, 03792895, 910153272 #### [place] (DEFAULT) [address] [place] [address] Protein [Mass/Vol] 7.2 g/dL Normal 6.5-8.1 [facility] Comment on above: Performed By: #### 7 587078, 1765417863, 2049148795, 67785815, 940754060 #### [place] (DEFAULT) [address] [place] [address] Urea nitrogen [Mass/Vol] 13 mg/dL Normal 8-26 [facility] Comment on above: Performed By: #### 7 843011, 7978975501, 3765912006, 63164710, 328629931 #### [place] (DEFAULT) [address] [place] [address] Urea nitrogen/Creatinine [Mass ratio] 13.8 mg/mg Normal 4.6-16.2 [facility] Comment on above: Performed By: #### 7 670215, 3206152165, 5821794721, 33333361, 763954489 #### [place] (DEFAULT) [address] [place] [address] Anion gap [Moles/Vol] 13.6 mmol/L Normal 5.0-19.0 [facility] Comment on above: Performed By: #### 7 162396, 2691297932, 4569934687, 92962080, 272528931 #### [place] (DEFAULT) [address] [place] [address] Calcium [Mass/Vol] 9.4 mg/dL Normal 8.9-10.3 [facility] Comment on above: Performed By: #### 7 373122, 6539226226, 2145413226, 99650136, 371854444 #### [place] (DEFAULT) [address] [place] [address] Chloride [Moles/Vol] 104 mmol/L Normal 101-111 [facility] Comment on above: Performed By: #### 7 598242, 6266467841, 9754575252, 73234660, 422615758 #### [place] (DEFAULT) [address] [place] [address] CO2 [Moles/Vol] 25 mmol/L Normal 21-32 [facility] Comment on above: Performed By: #### 7 517856, 8279707203, 6400000361, 27807781, 118433282 #### [place] (DEFAULT) [address] [place] [address] Glucose [Mass/Vol] 93.0 mg/dL Normal 74.0-118.0 [facility] Comment on above: Performed By: #### 7 141720, 9042659757, 0345489226, 89189619, 615818359 #### [place] (DEFAULT) [address] [place] [address] Potassium [Moles/Vol] 3.6 mmol/L Normal 3.6-5.1 [facility] Comment on above: Performed By: #### 7 197057, 1510764222, 5382083807, 61530230, 822261740 #### [place] (DEFAULT) [address] [place] [address] Sodium [Moles/Vol] 139.0 mmol/L Normal 136.0-144.0 [facility] Comment on above: Performed By: #### 7 996615, 0942502786, 4000194689, 39061185, 430179767 #### [place] (DEFAULT) [address] [place] [address] Abdomen/Pelvis w/o Contra ston 01-26-2025 CT [...] MD 01/26/25 2:00 pm Technologist: Boogie COLE [facility] ED Note-Nursingon 01-26-2025 ED Note-Nursing Pt stated she was seen in [facility] recently and Dr. Plata is requesting records. Chief Station Engineer called [facility] to get records faxed. Stated they would be faxing results over. [facility] Extra Blueon 01-26-2025 Tube Collected Yes Invalid Interpretation Code [facility] Comment on above: Performed By: #### 7 274250, [id number], 3786257719, 08872449, 156714350 #### [place] (DEFAULT) [address] [place] [address] Microscopic Urinalysison Bacteria LM Ql (Urine sed) None None [facility] Casts LM.LPF (Urine sed) [#/Area] 2 TO 5 HYALINE Reference range defined for non-centrifuged specimen. [facility] Epithelial cells LM.HPF (Urine sed) [#/Area] 2 TO 5 [facility] RBC LM.HPF (Urine sed) [#/Area] TOO NUMEROUS TO COUNT [facility] Comment on above: Reference range defi salty for non-centrifuged specimen. WBC LM.HPF (Urine sed) [#/Area] 20 TO 50 [facility] Bon [facility] Test Serum 1on Preg Serum Internal Control OK [facility] Comment on above: Performed By: #### 7 975121, [id number], 7720667049, 00307716, 034751321 #### [place] (DEFAULT) [address] [place] [address] Test Serum Qual Negative [facility] Comment on above: Performed By: #### 7 174279, 7073278378, 8654213591, 13840639, 498683059 #### [place] (DEFAULT) [address] [place] [address] Stone Analysison 01-26-2025 Calculi description See Note [facility] Comment on above: Result Comment: (NOT E) Specimen consists of one rondon sample. The total weight is less than 2 mg. Performed By: #### A STONE #### [employer] [address] [place] [address] [phone] Fire Equipment Inspector Helper: Mane Tolbert MD Composition See Note [facility] Comment on above: Result Comment: (NOT [...] composition determined by FTIR analysis. Performed By: [employer] [address] [place] [id number] Bicycle Repairman: Jorge Melendrez MD, PhD CLIA Number: [id number] Performed By: #### A STONE #### [employer] [address] [place] [id number] Fire Equipment Inspector Helper: Mane Tolbert MD Mass See Note [facility] Comment on above: Result Comment: (NOT E) Sample mass < 2 mg. Small sample size prevents accurate weight determination. Performed By: #### A STONE #### [address] [address] Fire Equipment Inspector Helper: Mane Tolbert MD Transfer Noteon 01-26-2025 Transfer Note Patient requires transfer to [facility] for a diagnosis of hydronephrosis. 1527- Kylie from [employer], Tamiko Mercedes NP paged, hospitalist speaks to Dr. Plata, accepts, top gun is open. 1539- Called [facility], rn palliative Austin gave 20 minute ETA. 1547- [facility] arrives 1550- [facility] [employer] calls, bed assignment given, room 321 bed 2, report number [id number] 1610- [facility] departs [Electronically Signed on: 01/26/2025 16:28 EDT] Beth Rodriguez RN [Verified on: 01/26/2025 16:28 EDT] Beth Rodriguez RN 1630- Dr. Plata signs physician note, this note was faxed to [facility] at fax number [phone]. [Electronically Signed on: 01/26/2025 16:31 EDT] Beth Rodriguez RN Normal [facility] UA Cyhxa9hl 01-26-2025 UA Bacteria Trace Normal [facility] Comment on above: Order Comment: Urina lysis Microscopic order added on by [employer] Rules system. Performed By: #### 7 [id number], [id number], [id number], [id number], [id number] #### [place] (DEFAULT) [address] [place] [address] UA Comment. See Comment Invalid Interpretation Code [facility] Comment on above: Order Comment: Urina lysis Microscopic order added on by [employer] Expert Rules system. Result Comment: 4+ S ulfa Crystals present Performed By: #### 7 [id number], [id number], [id number], [id number], [id number] #### [place] (DEFAULT) [address] [place] [address] UA RBC Gross Blood [facility] Comment on above: Order Comment: Urina lysis Microscopic order added on by [employer] Expert Rules system. Performed By: #### 7 551331, [id number], [id number], [id number], [id number] #### [place] (DEFAULT) [address] [place] [address] UA Squam Epi Moderate Normal [facility] Comment on above: Order Comment: Urina lysis Microscopic order added on by [employer] Rules system. Performed By: #### 7 558577, [id number], [id number], [id number], [id number] #### [place] (DEFAULT) [address] [place] [address] UA WBC 3-5 Normal [facility] Comment on above: Order Comment: Urina lysis Microscopic order added on by [employer] Rules system. Performed By: #### 7 917762, [id number], [id number], [id number], [id number] #### [place] (DEFAULT) [address] [place] [address] UA w Culture if Ind Standard on 01-26-2025 Breakpoint UA [facility] Comment on above: Performed By: #### 7 020341, [id number], [id number], [id number], [id number] #### [place] (DEFAULT) [address] [place] [address] Color (U) Red Normal [facility] Comment on above: Result Comment: Test cannot be satisfactorily determined due to intensely colored urine. Parameters which will be affected are: GLU, BRAIN, URO, KET, BLO, PRO, NIT, LISSA, SG, AND pH. Performed By: #### 7 407455, [id number], [id number], [id number], [id number] #### [place] (DEFAULT) [address] [place] [address] Culture? Yes Normal [facility] Comment on above: Result Comment: Resu lt created by rule GL_MAGR_ADD_UA_CULT Result created by rule GL_MAGR_ADD_UA_CULT1 Performed By: #### 7 583087, [id number], [id number], [id number], [id number] #### [place] (DEFAULT) [address] [place] [address] Glucose (U) [Mass/Vol] Negative Normal [facility] Comment on above: Performed By: #### 7 575541, [id number], [id number], [id number], [id number] #### [place] (DEFAULT) [address] [place] [address] Ketones Ql (U) Negative Normal [facility] Comment on above: Performed By: #### 7 280504, [id number], [id number], [id number], [id number] #### [place] (DEFAULT) [address] [place] [address] Micro? Indicated Invalid Interpretation Code [facility] Comment on above: Result Comment: Resu lt created by rule GL_MAGR_ADD_UA_MICRO Performed By: #### 7 428882, [id number], [id number], [id number], [id number] #### [place] (DEFAULT) [address] [place] [address] UA Bilirubin SMALL Abnormal [facility] Comment on above: Performed By: #### 7 142079, [id number], [id number], [id number], [id number] #### [place] (DEFAULT) [address] [place] [address] UA Blood LARGE Abnormal NEGATIVE [facility] Comment on above: Performed By: #### 7 683723, [id number], [id number], [id number], [id number] #### [place] (DEFAULT) [address] [place] [address] UA Clarity CLOUDY Abnormal CLEAR [facility] Comment on above: Performed By: #### 7 679334, [id number], [id number], [id number], [id number] #### [place] (DEFAULT) [address] [place] [address] UA Leuk Est MODERATE Abnormal NEGATIVE [facility] Comment on above: Performed By: #### 7 063567, [id number], [id number], [id number], [id number] #### [place] (DEFAULT) [address] [place] [address] UA Nitrite Negative Normal NEGATIVE [facility] Comment on above: Performed By: #### 7 833654, [id number], [id number], [id number], [id number] #### [place] (DEFAULT) [address] [place] [address] UA pH 7.0 Normal 5-8 [facility] Comment on above: Performed By: #### 7 493468, [id number], [id number], [id number], [id number] #### [place] (DEFAULT) [address] [place] [address] UA Protein 100 Abnormal NEGATIVE [facility] Comment on above: Performed By: #### 7 453230, [id number], [id number], [id number], [id number] #### [place] (DEFAULT) [address] [place] [address] UA Spec Grav 1.020 Normal 1.001-1.035 [facility] Comment on above: Performed By: #### 7 927282, [id number], [id number], [id number], [id number] #### [place] (DEFAULT) [address] [place] [address] UA Urobilinogen 0.2 mg/dL Normal 0.2-1.0 [facility] Comment on above: Performed By: #### 7 484490, [id number], [id number], [id number], [id number] #### [place] (DEFAULT) [address] [place] [address] Urine Source Clean Catch Normal [facility] Comment on above: Performed By: #### 7 725837, [id number], [id number], [id number], [id number] #### [place] (DEFAULT) [address] [place] [address] UA w/Reflex Cultureon 2024 Bilirubin, SemiQt,Ur Negative Normal NEG [facility] Comment on above: Performed By: #### U AX, UMICAO #### [facility] [employer] [address] [place] [address] Fire Equipment Inspector Helper: Alejandro Salazar MD Blood, Urine LARGE Abnormal NEG [facility] Comment on above: Performed By: #### U AX, UMICAO #### [facility] [address] [place] [address] Fire Equipment Inspector Helper: Alejandro Salazar MD Clarity (U) Cloudy Abnormal CLEAR [facility] Comment on above: Performed By: #### U AX, UMICAO #### [facility] [employer] [address] [place] [address] Fire Equipment Inspector Helper: Alejandro Salazar MD Color (U) [place] Abnormal YEL [facility] Comment on above: Result Comment: INTE RPRET WITH CAUTION DUE TO INTENSE COLOR OF URINE. Performed By: #### U AX, UMICAO #### [facility] [employer] [address] [place] [address] Fire Equipment Inspector Helper: Alejandro Salazar MD Glucose Ql (U) Negative Normal NEG [facility] Comment on above: Performed By: #### U AX, UMICAO #### [facility] [address] [place] [address] Fire Equipment Inspector Helper: Alejandro Salazar MD Ketones Ql (U) Negative Normal NEG [facility] Comment on above: Performed By: #### U AX, UMICAO #### [facility] [address] [place] [address] Fire Equipment Inspector Helper: Alejandro Salazar MD Leukocyte esterase Test strip Ql (U) MODERATE Abnormal NEG [facility] Comment on above: Performed By: #### U AX, UMICAO #### [employer] [facility] [place] [address] Fire Equipment Inspector Helper: Alejandro Salazar MD Nitrite,Ur Negative Normal NEG [facility] Comment on above: Performed By: #### U AX, UMICAO #### [facility] [address] [place] [address] Fire Equipment Inspector Helper: Alejandro Salazar MD PH,Ur 6.5 Normal 5.0-8.0 [facility] Comment on above: Performed By: #### U AX, UMICAO #### [facility] [address] [place] [address] Fire Equipment Inspector Helper: Alejandro Salazar MD Protein Ql (U) 2+ mg/dL Abnormal NEG [facility] Comment on above: Performed By: #### U AX UMICAO #### [facility] [employer] [address] [place] [address] Fire Equipment Inspector Helper: Alejandro Salazar MD Spec. [place],Ur 1.016 Normal 1.005-1.030 [facility] Comment on above: Performed By: #### U AX UMICAO #### [facility] [address] [place] [address] Fire Equipment Inspector Helper: Alejandro Salazar MD Urobilinogen,Ur Normal Normal 0.0-1.0 [facility] Comment on above: Performed By: #### U AX, UMICAO #### [facility] [employer] [address] [place] [address] Fire Equipment Inspector Helper: Alejandro Salazar MD Urinalysis with Reflex to Cu ltureon 01-26-2025 Bilirubin Ql (U) Negative NEGATIVE [facility] [employer] Clarity (U) Cloudy Abnormal [facility] [employer] Color (U) [place] Abnormal [facility] [employer] Comment on above: INTERPRET WITH CAUTI ON DUE TO INTENSE COLOR OF URINE. Glucose Test strip (U) [Mass/Vol] Negative NEGATIVE mg/dL [employer] Hemoglobin Auto test strip Ql (U) LARGE Abnormal NEGATIVE [facility] Interpretation and review of laboratory results Abnormal [facility] Ketones (U) [Mass/Vol] Negative NEGATIVE mg/dL [facility] Leukocyte esterase Test strip Ql (U) MODERATE Abnormal NEGATIVE [facility] Nitrite Ql (U) Negative NEGATIVE [facility] pH (U) 6.5 [pH] 5.0 - 8.0 [facility] Protein (U) [Mass/Vol] 2+ Abnormal NEGATIVE mg/dL [facility] Specific gravity (U) [Rel density] 1.016 1.005 - 1.030 [facility] Urobilinogen Qn (U) Normal 0.0 - 1. 0 EU/dL [facility] Urinalysis,Microon 5 Bacteria None Normal NONE [facility] Comment on above: Performed By: #### U AX, UMICAO #### [facility] [employer] [address] [place] [address] Fire Equipment Inspector Helper: Alejandro Salazar MD Casts 2 TO 5 HYALINE Normal 0-8 [facility] Comment on above: Result Comment: Refe rence range defined for non-centrifuged specimen. Performed By: #### U AX, UMICAO #### [employer] [address] [place] [address] Fire Equipment Inspector Helper: Alejandro Salazar MD Epithelial cells LM Ql (Urine sed) 2 TO 5 Normal 0-5 [facility] Comment on above: Performed By: #### U AX, UMICAO #### [employer] [address] [place] [address] Fire Equipment Inspector Helper: Alejandro Salazar MD Urine RBC's TOO NUMEROUS TO COUNT Normal 0-4 [facility] Comment on above: Result Comment: Refe rence range defined for non-centrifuged specimen. Performed By: #### U AX, UMICAO #### [employer] [address] [place] [address] Fire Equipment Inspector Helper: Alejandro Salazar MD Urine WBC's 20 TO 50 Normal 0-5 [facility] Comment on above: Performed By: #### U AX, UMFERCHOO #### [address] [address] Fire Equipment Inspector Helper: Alejandro Salazar MD Cult,Urineon 01-23-2025 Cult,Urine Specimen Description .BLADDER URINE FROM CYSTOSCOPY Special Requests Site: Urine Culture NO GROWTH Report Status FINAL 01/23/2025 Normal [facility] Comment on above: Performed By: #### U RC #### [address] [address] Fire Equipment Inspector Helper: Alejandro Salazar MD Basic Metabolic Profon 01-22 Anion gap [Moles/Vol] 12 mmol/L Normal 9-16 [facility] Comment on above: Performed By: #### B MP #### [address] [address] Fire Equipment Inspector Helper: Alejandro Salazar MD Calcium [Mass/Vol] 8.4 mg/dL Low 8.6-10.4 [facility] Comment on above: Performed By: #### B MP #### [address] [address] Fire Equipment Inspector Helper: Alejandro Salazar MD Chloride [Moles/Vol] 107 mmol/L Normal 98-107 [facility] Comment on above: Performed By: #### B MP #### [address] [address] Fire Equipment Inspector Helper: Alejandro Salazar MD CO2 [Moles/Vol] 21 mmol/L Normal 20-31 [facility] Comment on above: Performed By: #### B MP #### [address] [address] Fire Equipment Inspector Helper: Alejandro Salazar MD Creatinine [Mass/Vol] 0.7 mg/dL Normal 0.6-0.9 [facility] Comment on above: Performed By: #### B MP #### [employer] [address] [place] [address] [phone] Fire Equipment Inspector Helper: lAejandro Salazar MD GFR/1.73 sq M.predicted among non-blacks MDRD (S/P/Bld) [Vol rate/Area] mL/min/{1.73_m2} Normal >60 [facility] Comment on above: Result Comment: These results [...] secretion. Performed By: #### B MP #### [employer] [address] [place] [address] Fire Equipment Inspector Helper: Alejandro Salazar MD Glucose [Mass/Vol] 94 mg/dL Normal 74-99 [facility] Comment on above: Performed By: #### B MP #### [facility] [address] [place] [address] Fire Equipment Inspector Helper: Alejandro Salazar MD Potassium [Moles/Vol] 4.2 mmol/L Normal 3.7-5.3 [facility] Comment on above: Result Comment: Spec imen hemolysis has exceeded the interference as defined by Denise. Value may be falsely increased. Suggest recollection if clinically indicated. Performed By: #### B MP #### [employer] [address] [place] [address] Fire Equipment Inspector Helper: Alejandor Salazar MD Sodium [Moles/Vol] 140 mmol/L Normal 136-145 [facility] Comment on above: Performed By: #### B MP #### [employer] [address] [place] [address] [phone] Fire Equipment Inspector Helper: Alejandro Salazar MD Urea nitrogen [Mass/Vol] 6 mg/dL Normal 6-20 [facility] Comment on above: Performed By: #### B #### [facility] [employer] [address] [place] [address] Fire Equipment Inspector Helper: Alejandro Salazar MD Basic metabolic panelon Anion gap [Moles/Vol] 12 mmol/L 9 - 16 mmol/L [facility] Calcium [Mass/Vol] 8.4 mg/dL Low 8.6 - 10. 4 mg/dL [facility] Chloride [Moles/Vol] 107 mmol/L 98 - 10 7 mmol/L [facility] CO2 [Moles/Vol] 21 mmol/L 20 - 31 mmol/L [facility] Creatinine [Mass/Vol] 0.7 mg/dL 0.6 - 0.9 mg/dL [facility] Est, Glohayley Lundt Rate - PINF [facility] Comment on above: These results are not [...] [Mass/Vol] 94 mg/dL 74 - 99 mg/dL [facility] Interpretation and review of laboratory results Abnormal [facility] Potassium [Moles/Vol] 4.2 mmol/L 3.7 - 5.3 mmol/L [facility] Comment on above: Specimen hemolysis h as exceeded the interference as defined by Denise. Value may be falsely increased. Suggest recollection if clinically indicated. Sodium [Moles/Vol] 140 mmol/L 136 - 145 mmol/L [facility] Urea nitrogen [Mass/Vol] 6 mg/dL 6 - 20 mg/dL [facility] CBC with Auto Differentialon 01-22-2025 Basophils (Bld) [#/Vol] 0.03 10*3/uL [facility] Basophils/100 WBC (Bld) 1 % 0 - 2 % [facility] Eosinophils (Bld) [#/Vol] [facility] Eosinophils/100 WBC (Bld) 1 % 1 - 4 % [facility] Erythrocyte distribution width (RBC) [Ratio] 12.5 % 11.8 - 14.4 % [facility] Hematocrit (Bld) [Volume fraction] 36.7 % 36.3 - 47.1 % [facility] Hemoglobin (Bld) [Mass/Vol] 11.8 g/dL Low 11.9 - 15.1 g/dL [facility] Immature granulocytes (Bld) [#/Vol] [facility] Immature granulocytes/100 WBC (Bld) 0 % 0 [facility] Interpretation and review of laboratory results Abnormal [facility] Lymphocytes/100 WBC (Bld) 34 % 24 - 43 % [facility] Lymphocytes/100 WBC (Bld) 1.19 % [facility] MCH (RBC) [Entitic mass] 27.6 pg 25.2 - 33.5 pg [facility] MCHC (RBC) [Mass/Vol] 32.2 g/dL 28.4 - 34.8 g/dL [facility] MCV (RBC) [Entitic vol] 85.7 fL 82.6 - 102.9 fL [facility] Monocytes/100 WBC (Bld) 9 % 3 - 12 % [facility] Monocytes/100 WBC (Bld) 0.3 % [facility] Neutrophils/100 WBC (Bld) 55 % 36 - 65 % [facility] Nucleated RBC/100 WBC (Bld) [Ratio] 0 % 0.0 per 100 WBC [facility] Platelet mean volume (Bld) [Entitic vol] 9.1 fL 8.1 - 13.5 fL [facility] Platelets (Bld) [#/Vol] 217 10*3/uL [facility] RBC (Bld) [#/Vol] 4.28 10*6/uL 3.95 - 5.1 1 m/uL [facility] Segmented neutrophils/100 WBC (Bld) 1.96 % [facility] WBC other (Bld) [#/Vol] 3.5 [facility] CBC with Diffon 01-22-2025 Abs. Basophil 0.03 k/uL Normal 0.00-0.20 [facility] Comment on above: Performed By: #### C DP #### [address] [address] Fire Equipment Inspector Helper: Alejandro Salazar MD Abs. Eosinophil <0.03 Normal 0.00-0.44 [facility] Comment on above: Performed By: #### C DP #### [address] [address] Fire Equipment Inspector Helper: Alejandro Salazar MD Abs.Imm.Granulocyte <0.03 Normal 0.00-0.30 [facility] Comment on above: Performed By: #### C DP #### [address] [address] Fire Equipment Inspector Helper: Alejandro Salazar MD Abs.Neutrophil (Seg) 1.96 k/uL Normal 1.50-8.10 [facility] Comment on above: Performed By: #### C DP #### [address] [address] Fire Equipment Inspector Helper: Alejandro Salazar MD Basophils/100 WBC (Bld) 1 % Normal 0-2 [facility] Comment on above: Performed By: #### C DP #### [address] [address] Fire Equipment Inspector Helper: Alejandro Salazar MD Eosinophils/100 WBC (Bld) 1 % Normal 1-4 [facility] Comment on above: Performed By: #### C DP #### [address] [address] Fire Equipment Inspector Helper: Alejandro Salazar MD Erythrocyte distribution width (RBC) [Ratio] 12.5 % Normal 11.8-14.4 [facility] Comment on above: Performed By: #### C DP #### [address] [address] Fire Equipment Inspector Helper: Alejandro Salazar MD Hematocrit (Bld) [Volume fraction] 36.7 % Normal 36.3-47.1 [facility] Comment on above: Performed By: #### C DP #### [address] [address] Fire Equipment Inspector Helper: Alejandro Salazar MD Hemoglobin (Bld) [Mass/Vol] 11.8 g/dL Low 11.9-15.1 [facility] Comment on above: Performed By: #### C DP #### [address] [address] Fire Equipment Inspector Helper: Alejandro Salazar MD Immature granulocytes/100 WBC (Bld) 0 % Normal 0 [facility] Comment on above: Performed By: #### C DP #### [address] [address] Fire Equipment Inspector Helper: Alejandro Salazar MD Lymphocytes (Bld) [#/Vol] 1.19 10*3/uL Normal 1.10-3.70 [facility] Comment on above: Performed By: #### C DP #### [address] [address] Fire Equipment Inspector Helper: Alejandro Salazar MD Lymphocytes/100 WBC (Bld) 34 % Normal 24-43 [facility] Comment on above: Performed By: #### C DP #### [address] [address] Fire Equipment Inspector Helper: Alejandro Salazar MD MCH (RBC) [Entitic mass] 27.6 pg Normal 25.2-33.5 [facility] Comment on above: Performed By: #### C DP #### [address] [address] Fire Equipment Inspector Helper: Alejandro Salazar MD MCHC (RBC) [Mass/Vol] 32.2 g/dL Normal 28.4-34.8 [facility] Comment on above: Performed By: #### C DP #### [address] [address] Fire Equipment Inspector Helper: Alejandro Salazar MD MCV (RBC) [Entitic vol] 85.7 fL Normal 82.6-102.9 [facility] Comment on above: Performed By: #### C DP #### [place] [address] Fire Equipment Inspector Helper: Alejandro Salazar MD Monocytes (Bld) [#/Vol] 0.30 10*3/uL Normal 0.10-1.20 [facility] Comment on above: Performed By: #### C DP #### [place] [address] Fire Equipment Inspector Helper: Alejandro Salazar MD Monocytes/100 WBC (Bld) 9 % Normal 3-12 [facility] Comment on above: Performed By: #### C DP #### [address] [address] Fire Equipment Inspector Helper: Alejandro Salazar MD Neutrophil (Seg) 55 % Normal 36-65 [facility] Comment on above: Performed By: #### C DP #### [place] [address] Fire Equipment Inspector Helper: Alejandro Salazar MD NRBC Automated 0.0 per 100 WBC Normal 0.0 [facility] Comment on above: Performed By: #### C DP #### [place] [address] Fire Equipment Inspector Helper: Alejandro Salazar MD Platelet mean volume (Bld) [Entitic vol] 9.1 fL Normal 8.1-13.5 [facility] Comment on above: Performed By: #### C DP #### [facility] [address] [place] [address] Fire Equipment Inspector Helper: Alejandro Salazar MD Platelets (Bld) [#/Vol] 217 10*3/uL Normal 138-453 [facility] Comment on above: Performed By: #### C DP #### [facility] [address] [place] [address] Fire Equipment Inspector Helper: Alejandro Salazar MD RBC (Bld) [#/Vol] 4.28 10*6/uL Normal 3.95-5.11 [facility] Comment on above: Performed By: #### C DP #### [facility] [employer] [address] [place] [address] Fire Equipment Inspector Helper: Alejandro Salazar MD WBC (Bld) [#/Vol] 3.5 10*3/uL Normal 3.5-11.3 [facility] Comment on above: Performed By: #### C DP #### [facility] [address] [place] [address] Fire Equipment Inspector Helper: Alejandro Salazar MD [employer] ESon 01-22-2025 FLUORO FOR SURGICAL PROCEDURES Radiology exam is complete. No Radiologist dictation. Please follow up with ordering provider. Final result Normal [facility] Guidance-- during surgeryon 01-22-2025 Radiology exam is complete. No Radiologist dictation. Please follow up with ordering provider. PN RIS CONSOLIDATED Lactic Acidon 01-22-2025 Lactic Acid, Whole Blood 1 mmol/L 0.7 - 2.1 mmol/L [facility] Lactic Acid,Whole Bl 1.0 mmol/L Normal 0.7-2.1 [facility] Comment on above: Performed By: #### L ACTIC #### [facility] [address] [place] [address] Fire Equipment Inspector Helper: Alejandro Salazar MD PREVIOUS SPECIMENon 01-23-20 25 [facility] Urine Cultureon 01-21-2025 Bacteria identified Cx Nom (U) ORGANISM: Escherichia coli (O:ESCCOL) [place] Count >100,000 Aerobic ANASTASIA Charge (NMIC56) ---- [...] RESISTANT TO ALL B-LACTAM DRUGS. PERFORMED BY: [place] [address] PATHOLOGIST COMMERCIAL CREDIT OFFICER DAVID TIERNEY M.D. Normal [facility] Comment on above: Performed By: #### C UU #### [address] [place] VOIDING URETHROCYSTOGRAM S AND Ion 01-17-2025 [place] VOIDING URETHROCYSTOGRAM S AND I EXAMINATION: VOIDING CYSTO URETHROGRAM 01/17/2025 7:55 am COMPARISON: None. HISTORY: ORDERING SYSTEM PROVIDED HISTORY: VUR (vesicoureteric reflux) TECHNOLOGIST PROVIDED HISTORY: Is the patient ?->No Reason for Exam: frequent UTI, kidney stones FLUOROSCOPY DOSE AND TYPE: Radiation Exposure Index: DAP 184.23lZvkh8, FINDINGS: 600 mL of Cystografin was instilled [...] Casey Sharma MD 01/17/25 Final result Normal [facility] [place] VOIDING URETHROCYSTOGRAM S&Ion 01-17-2025 1. No evidence for vesicoureteric reflux. 2. Small postvoid residual. [facility] RIS CONSOLIDATED EXAMINATION: VOIDING CYSTO URETHROGRAM 01/17/2025 7:55 am COMPARISON: None. HISTORY: ORDERING SYSTEM PROVIDED HISTORY: VUR (vesicoureteric reflux) TECHNOLOGIST PROVIDED HISTORY: Is the patient ?->No Reason for Exam: frequent UTI, kidney stones FLUOROSCOPY DOSE AND TYPE: Radiation Exposure Index: DAP 184.27vJnmp6, FINDINGS: 600 mL of Cystografin was instilled [...] the urethra. There is small postvoid residual. [facility] RIS CONSOLIDATED Casey Sharma MD - 01/17/2025 EXAMINATION: VOIDING CYSTO URETHROGRAM 01/17/2025 7:55 am COMPARISON: None. HISTORY: ORDERING SYSTEM PROVIDED HISTORY: VUR (vesicoureteric reflux) TECHNOLOGIST PROVIDED HISTORY: Is the patient ?->No Reason for Exam: frequent UTI, kidney stones FLUOROSCOPY DOSE AND TYPE: Radiation Exposure Index: DAP 184.42yLcxa5, FINDINGS: 600 mL of Cystografin was instilled [...] for vesicoureteric reflux. 2. Small postvoid residual. [facility] Radiology Study observation (narrative) [facility] [place] VOIDING URETHROCYSTOGRAM S&IOrdered By: Casey Sharma on 01-17-2025 [facility] Work Phone: [place] KIDNEY W [...] Glen Perez MD 01/16/25 Final result Normal [facility] Urine Cultureon 12-02-2024 Bacteria identified Cx Nom (U) 30,000 colonies/ml mixed bacterial skin contaminants 2 Days PERFORMED BY: [place] [address] PATHOLOGIST COMMERCIAL CREDIT OFFICER DAVID TIERNEY M.D. Normal [facility] Comment on above: Performed By: #### C UU #### [address] Urine cultureOrdered By: Vicente Snyder on 12-02-2024 Bacteria identified Cx Nom (U) Urine culture [facility] Cholesterol [Mass/volume] in Serum or PlasmaOrdered By: Arnulfo Aviles on 04-09-2024 Cholesterol [Mass/Vol] 150 mg/dL 140-200 [facility] Comment on above: Chol less than 200 m g/dl low riskChol 201-239 mg/dl borderline riskChol 240 mg/dl and greater high risk Cholesterol in LDL Calc [Mas s/Vol]Ordered By: Arnulfo Aviles on 04-09-2024 Cholesterol in LDL [Mass/Vol] 90 mg/dL 0-100 [facility] Comment on above: LDL ATP III CLASSIFI CATIONLDL less than 100 mg/dL OptimalLDL 100-129 mg/dL Near or above optimalLDL 130-159 mg/dL Borderline highLDL 160-189 mg/dL HighLDL greater than 189 mg/dL Very high Cholesterol in VLDL Calc [Ma ss/Vol]Ordered By: Arnulfo Aviles on 04-09-2024 Cholesterol in VLDL [Mass/Vol] 16 mg/dL [facility] Serum or plasma high density lipoprotein (HDL) cholesterol measurementOrdered By: Arnulfo Aviles on 04-09-2024 Cholesterol in HDL [Mass/Vol] 44 mg/dL 23-92 [facility] Comment on above: HDL CHOL ATP-III CLA SSIFICATION Cardiovascular RiskHDL > or equal to 60 mg/dL LOWHDL < 40 mg/dL HIGH Serum or plasma total choles terol/high density lipoprotein (HDL) cholesterol mass ratOrdered By: Arnulfo Aviles on 04-09-2024 Cholesterol.total/Cho lesterol in HDL [Mass ratio] 3.4 {ratio} <5.0 [facility] Thyrotropin [Units/volume] i n Serum or PlasmaOrdered By: Arnulfo Aviles on 04-09-2024 TSH Qn 2.01 m[IU]/L 0.45-5.33 [facility] Triglyceride [Mass/volume] i n Serum or PlasmaOrdered By: Arnulfo Aviles on 04-09-2024 Triglyceride [Mass/Vol] 82 mg/dL 0-149 [facility] Comment on above: TRIG ATP III CLASSIF ICATIONTRIG less than 150 mg/dL NormalTRIG 150-199 mg/dL Borderline highTRIG 200-500 mg/dL High TRIG greater than 500 mg/dL Very highStandard traceable to the Center for Disease Conrtrol and Prevention (CDC) test method. Vitamin D+Metabolites [Mass/ volume] in Serum or PlasmaOrdered By: Arnulfo Aviles on 04-09-2024 Vitamin D+Metabolites [Mass/Vol] 26.2 ng/mL 30-100 [facility] Comment on above: VITAMIN D STATUS 25( [place])VITAMIN D RANGE (ng/mL) Deficient <20 Insufficient 20 to <30Sufficient 30 to 100Reference: José Miguel MF,Jennifer NC, Mady MARTI, et al. Evaluation,treatment, and prevention of vitamin D deficiency; an Endocrine Society clinical practice guideline. JCEM. 2010; 96(7):1911-30. Patient Letter FTon 2023 Patient Letter [facility] December 04, 2023 DIANA BARRIGA [address] [place] [phone] : 1990 Dear Diana, You missed your [...] [facility] [address], [place] [address] [facility] Lab Reportson 06-05-2023 Lab Reports [id number]#1 .00CD:127 [facility] Reminderson 04-24-2023 Reminders - [...] [facility] Operative Reporton Operative Report [id number]#1. 00CD:127 [facility] RAD - MISCon 04-10-2023 RAD - MISC [id number]#1 .00CD:127 [facility] Lab Reportson 04-06-2023 Lab Reports [id number]#1 .00CD:127 [facility] Lab Reports [id number]#1 .00CD:127 [facility] Lab Reportson 03-23-2023 Lab Reports [id number]#1 .00CD:127 [facility] Lab Reports [id number]#1 .00CD:127 [facility] Lab Reports [id number]#1 .00CD:127 [facility] RAD - CT Reporton 03-23-2023 RAD - CT Report [id number]#1 .00CD:127 [facility] RAD - CT Report [id number] .00CD:127 [facility] Ambulatory Visit Summaryon 0 03-20-2023 Ambulatory [...] Where: [facility] [address] [place] [address]- Medications What When Instructions Unchanged olanzapine-samidorpha n [...] for Procedure/Surger yon 03-20-2023 Consent for Procedure/Surgery [id number]#1 .00CD:127 [facility] Patient Educationon 03-20-20 23 [...] Spinach (cooked), rhubarb, beets, sweet potatoes, and Kazakh chard. ? Peanuts. ? Potato chips, belarusian fries, and baked potatoes with skin on. ? Nuts and nut products. ? Chocolate. ? If you regularly take a diuretic medicine, make sure to eat at least 1 or 2 servings of fruits or vegetables that are high in potassium each day. These include: ? Avocado. ? Banana. ? [place], prune, carrot, or tomato juice. ? Baked [...] fish oil, or vitamin B6. ? Take hizi-ngq-bfqwvhx and prescription medicines only as told by your health care provider. These include supplements. What foods should I limit? Limit your in (more content not included)... [facility] Office/Clinic Noteon 03-20-2023 Urology [...] Lt kidney pain. Did got to the [place] ER. DX'd & treated for UTI. (NEG [...] L. Ox slightly elevated. Pt presented to [facility] ER on 03/06/23 due to L [...] mg qd. SEs discussed. [facility] -Electrolyte panel 4 weeks to the day [...] MD, URL [facility] [address] [place] [address]- Additional Instructions: schedule R ESWL Patient Education [...] kidney s (more content not included)... [facility] Comment on above: Result Comment: Elec tronically Signed By: Nona RAYGOZA MD\.br\Date and Time Signed: 03/20/23 11:30 EDT\.br\Electronically Co-Signed By: Whitney Collier\.br\Date and Time Co-Signed: 03/20/23 11:28 EDT CBC AUTO DIFFon 02-16-2023 BASO # 0.1 103/ul Normal 0.0-0.1 [facility] Comment on above: Performed By: #### U KJ 24 #### [facility] [address] [address] [address] Ramses Dumas Basophils/100 WBC (Bld) 0.5 % Normal 0.2-2.0 [facility] Comment on above: Performed By: #### U KJ 24 #### [facility] [address] [address] [address] Ramses Dumas EO # 0.0 103/ul Normal 0.0-0.7 [facility] Comment on above: Performed By: #### U KJ 24 #### [facility] [address] [place] [address] Dr. Ramses Dumas Eosinophils/100 WBC (Bld) 0.4 % Critically low 0.9-7.0 [facility] Comment on above: Performed By: #### U KJ 24 #### [facility] [address] [place] [address] Dr. Ramses Dumas Erythrocyte distribution width (RBC) [Ratio] 13.7 % Normal 11.0-15.0 [facility] Comment on above: Performed By: #### U KJ 24 #### [facility] [address] [place] [address] Dr. Ramses Dumas Hematocrit (Bld) [Volume fraction] 45.1 % Normal 36.0-48.0 [facility] Comment on above: Performed By: #### U KJ 24 #### [facility] [address] [place] [address] Dr. Ramses Dumas Hemoglobin (Bld) [Mass/Vol] 14.3 g/dL Normal 12.0-16.0 [facility] Comment on above: Performed By: #### U KJ 24 #### [facility] [address] [place] [address] Dr. Ramses Dumas IG # 0.02 10e3/ul Normal 0.00-0.03 [facility] Comment on above: Performed By: #### U KJ 24 #### [facility] [address] [place] [address] Dr. Ramses Dumas IG % 0.2 % Normal 0.0-0.5 [facility] Comment on above: Performed By: #### U KJ 24 #### [facility] [address] [place] [address] Dr. Ramses Dumas LYMPH # 2.5 103/ul Normal 1.2-3.[address] [facility] Comment on above: Performed By: #### U KJ 24 #### [facility] [address] [place] [address] Dr. Ramses Dumas Lymphocytes/100 WBC (Bld) 26.4 % Normal 20.5-60.[address] [facility] Comment on above: Performed By: #### U KJ 24 #### [facility] [address] [address] [address] Ramses Dumas MANUAL DIFF REQ NO Normal [facility] Comment on above: Performed By: #### U KJ 24 #### [facility] [address] [place] [address] Dr. Ramses Dumas MCH (RBC) [Entitic mass] 25.6 pg Critically low 26.7-34.0 [facility] Comment on above: Performed By: #### U KJ 24 #### [facility] [address] [place] [address] Dr. Ramses Dumas MCHC (RBC) [Mass/Vol] 31.7 g/dL Normal 29.9-35.2 [facility] Comment on above: Performed By: #### U KJ 24 #### [facility] [address] [place] [address] Dr. Ramses Dumas MCV (RBC) [Entitic vol] 80.7 fL Critically low 81.0-99.0 [facility] Comment on above: Performed By: #### U KJ 24 #### [facility] [address] [place] [address] Dr. Ramses Dumas MONO # 0.7 103/ul Normal 0.3-0.8 [facility] Comment on above: Performed By: #### U KJ 24 #### [facility] [address] [place] [address] Dr. Ramses Dumas Monocytes/100 WBC (Bld) 7.6 % Normal 1.7-12.0 [facility] Comment on above: Performed By: #### U KJ 24 #### [facility] [address] [place] [address] Dr. Ramses Dumas NEUT # 6.1 103/ul Normal 1.4-6.[address] [facility] Comment on above: Performed By: #### U KJ 24 #### [facility] [address] [place] [address] Dr. Ramses Dumas Neutrophils/100 WBC (Bld) 64.9 % Normal 43.0-75.[address] [facility] Comment on above: Performed By: #### U KJ 24 #### [facility] [address] [address] [address] Ramses Dumas Platelet mean volume (Bld) [Entitic vol] 11.0 fL Normal 9.5-13.5 [facility] Comment on above: Performed By: #### U KJ 24 #### [facility] [address] [address] [address] Ramses Dumas PLT 270 103/ul Normal 150-[address] [facility] Comment on above: Performed By: #### U KJ 24 #### [facility] [address] [address] [address] Ramses Dumas RBC 5.59 106/ul Critically high 4.20-5.40 [facility] Comment on above: Performed By: #### U KJ 24 #### [facility] [address] [place] [address] Dr. Ramses Dumas WBC 9.4 103/ul Normal 4.0-11.0 [facility] Comment on above: Performed By: #### U KJ 24 #### [facility] [address] [place] [address] ABD/PELV W CONon [...] FARTUN NOVOA Date: 2023-02-16 18:[address] [facility] URINE PROFILEon 3 Bilirubin Ql (U) SMALL Abnormal NEGATIVE [facility] Comment on above: Performed By: #### C MP #### [facility] [address] [place] [address] Dr. Ramses Dumas Clarity (U) CLEAR Normal CLEAR [facility] Comment on above: Performed By: #### C MP #### [facility] [address] [place] [address] Dr. Ramses Dumas Color (U) YELLOW Normal YELLOW [facility] Comment on above: Performed By: #### C MP #### [facility] [address] [place] [address] Dr. Ramses Dumas ERUCARLOS ENRIQUE A micrscopic examination will be performed if indicated. Normal [facility] Comment on above: Performed By: #### C MP #### [facility] [address] [place] [address] Dr. Ramses Dumas Glucose Ql (U) Negative Normal NEGATIVE [facility] Comment on above: Performed By: #### C MP #### [facility] [address] [place] [address] Dr. Ramses Dumas Hemoglobin Ql (U) Negative Normal NEGATIVE [facility] Comment on above: Performed By: #### C MP #### [facility] [address] [place] [address] Dr. Ramses Dumas Ketones Ql (U) 40 mg/dl Abnormal NEGATIVE [facility] Comment on above: Performed By: #### C MP #### [facility] [address] [place] [address] Dr. Ramses Dumas LEUKOCYTES SMALL Abnormal NEGATIVE [facility] Comment on above: Performed By: #### C MP #### [facility] [address] [place] [address] Dr. Ramses Dumas Nitrite Ql (U) Negative Normal NEGATIVE [facility] Comment on above: Performed By: #### C MP #### [facility] [address] [place] [address] Dr. Ramses Dumas pH (U) 7.0 [pH] Normal 5-9 [facility] Comment on above: Performed By: #### C MP #### [facility] [address] [place] [address] Dr. Ramses Dumas Protein (U) [Mass/Vol] 30 mg/dL Abnormal NEGATIVE/ TRACE [facility] Comment on above: Performed By: #### C MP #### [facility] [address] [place] [address] Dr. Ramses Dumas SPEC GRAVITY 1.020 Normal 1.005-<=1.02 5 [facility] Comment on above: Performed By: #### C MP #### [facility] [address] [place] [address] Dr. Ramses Dumas UR MICRO IND INDICATED Normal [facility] Comment on above: Performed By: #### C MP #### [facility] [address] [place] [address] Dr. Ramses Dumas Urobilinogen Qn (U) 4 {Lucero'U}/dL Abnormal 0.2 - 1.[address] [facility] Comment on above: Performed By: #### C MP #### [facility] [address] [place] [address] Dr. Ramses Dumas LIPASEon 02-16-2023 Lipase [Catalytic activity/Vol] 67.0 U/L Critically low 73.0-393.0 [facility] Comment on above: Performed By: #### U RCX #### [facility] [address] [address] [address] Ramses Dumas LIVER PROFILEon 02-16-2023 Albumin [Mass/Vol] 4.1 g/dL Normal 3.4-5.0 [facility] Comment on above: Performed By: #### U RCX #### [facility] [address] [place] [address] Dr. Ramses Dumas Albumin/Globulin [Mass ratio] 1.0 {ratio} Normal [facility] Comment on above: Performed By: #### U RCX #### [facility] [address] [address] [address] Ramses Dumas ALP [Catalytic activity/Vol] 85 U/L Normal 46-116 [facility] Comment on above: Performed By: #### U RCX #### [facility] [address] [place] [address] Dr. Ramses Dumas ALT [Catalytic activity/Vol] 61 U/L Critically high 14-59 [facility] Comment on above: Performed By: #### U RCX #### [facility] [address] [place] [address] Dr. Ramses Dumas AST [Catalytic activity/Vol] 43 U/L Critically high 15-37 [facility] Comment on above: Performed By: #### U RCX #### [facility] [address] [place] [address] Dr. Ramses Dumas BILI, CONJUGATED 0.1 mg/dL Normal 0.0-0.2 [facility] Comment on above: Performed By: #### U RCX #### [facility] [address] [place] [address] Dr. Ramses Dumas Bilirubin [Mass/Vol] 0.7 mg/dL Normal 0.2-1.0 [facility] Comment on above: Performed By: #### U RCX #### [facility] [address] [place] [address] Dr. Ramses Dumas Globulin (S) [Mass/Vol] 4.2 g/dL Normal [facility] Comment on above: Performed By: #### U RCX #### [facility] [address] [address] [address] Ramses Dumas Protein [Mass/Vol] 8.3 g/dL Critically high 6.4-8.2 [facility] Comment on above: Performed By: #### U RCX #### [facility] [address] [address] [address] Ramses Dumas URon 02-16-2023 , QUAL Negative Normal NEGATIVE [facility] Comment on above: Performed By: #### C MP #### [facility] [address] [place] [address] Dr. Ramses Dumas PROF CHEM 8 (BAS METB)on Anion gap [Moles/Vol] 14.2 mmol/L Normal [facility] Comment on above: Performed By: #### U RCX #### [facility] [address] [place] [address] Dr. Ramses Dumas Calcium [Mass/Vol] 9.5 mg/dL Normal 8.5-10.1 [facility] Comment on above: Performed By: #### U RCX #### [facility] [address] [address] [address] Ramses Dumas Chloride [Moles/Vol] 102 mmol/L Normal 98-107 [facility] Comment on above: Performed By: #### U RCX #### [facility] [address] [place] [address] Dr. Ramses Dumas CO2 [Moles/Vol] 27.5 mmol/L Normal 21.0-32.0 [facility] Comment on above: Performed By: #### U RCX #### [facility] [address] [place] [address] Dr. Ramses Dumas Creatinine [Mass/Vol] 0.71 mg/dL Normal 0.55-1.02 [facility] Comment on above: Performed By: #### U RCX #### [facility] [address] [place] [address] Dr. Ramses Dumas EGFR-AF CAMEROONIAN >60 Normal >=60 [facility] Comment on above: Performed By: #### U RCX #### [facility] [address] [address] [address] Ramses Dumas EGFR-NON AF CAMEROONIAN >60 Normal >=[address] [facility] Comment on above: Performed By: #### U RCX #### [facility] [address] [address] [address] Ramses Dumas Glucose [Mass/Vol] 90 mg/dL Normal 74-106 [facility] Comment on above: Performed By: #### U RCX #### [facility] [address] [address] [address] Ramses Dumas Potassium [Moles/Vol] 3.7 mmol/L Normal 3.5-5.1 [facility] Comment on above: Performed By: #### U RCX #### [facility] [address] [place] [address] Dr. Ramses Dumas Sodium [Moles/Vol] 140 mmol/L Normal 136-145 [facility] Comment on above: Performed By: #### U RCX #### [facility] [address] [place] [address] Dr. Ramses Dumas Urea nitrogen [Mass/Vol] 6.0 mg/dL Critically low 7.0-18.0 [facility] Comment on above: Performed By: #### U RCX #### [facility] [address] [place] [address] Dr. Ramses Dumas Urea nitrogen/Creatinine [Mass ratio] 8.5 mg/mg Normal [facility] Comment on above: Performed By: #### U RCX #### [facility] [address] [place] [address] Dr. Ramses Dumas URINE MICROSCOPIC ONLYon BACTERIA NONE SEEN Normal NONE SEEN [facility] Comment on above: Performed By: #### U KJ 24 #### [facility] [address] [place] [address] Dr. Ramses Dumas Bacteria identified Cx Nom (U) NOT INDICATED Normal [facility] Comment on above: Performed By: #### U KJ 24 #### [facility] [address] [place] [address] Dr. Ramses Dumas CAST NONE SEEN Normal NONE SEEN [facility] Comment on above: Performed By: #### U KJ 24 #### [facility] [address] [place] [address] Dr. Ramses Dumas Crystals LM Nom (Urine sed) NONE SEEN Normal NONE SEEN [facility] Comment on above: Performed By: #### U KJ 24 #### [facility] [address] [place] [address] Dr. Ramses Dumas Epithelial cells LM Ql (Urine sed) FEW Abnormal NONE SEEN /RARE [facility] Comment on above: Performed By: #### U KJ 24 #### [facility] [address] [place] [address] Dr. Ramses Dumas MUCOUS SMALL Abnormal NONE SEEN [facility] Comment on above: Performed By: #### U KJ 24 #### [facility] [address] [place] [address] Dr. Ramses Dumas RBC NONE SEEN Abnormal 0-[address] [facility] Comment on above: Performed By: #### U KJ 24 #### [facility] [address] [place] [address] Dr. Ramses Dumas WBC 0-2 Abnormal NONE SEEN [facility] Comment on above: Performed By: #### U KJ 24 #### [facility] [address] [place] [address] Dr. Ramses Dumas PAP ACOG PANEL 2: 30 to 65on 02-10-2023 . . Normal [facility] Comment on above: Result Comment: Perf ormed at: WB Performed By: #### U RCX #### [facility] [address] [place] [address] Dr. Ramses Dumas Age Gdln ACOG Testing 30-65 Normal [facility] Comment on above: Performed By: #### U RCX #### [facility] [address] [place] [address] Dr. Ramses Dumas DIAGNOSIS: Comment Normal [facility] Comment on above: Result Comment: NEGA TIVE FOR INTRAEPITHELIAL LESION OR MALIGNANCY. REACTIVE CELLULAR CHANGES AND/OR REPAIR ARE PRESENT. Performed at: WB Performed By: #### U RCX #### [facility] [address] [address] [address] Ramses Dumas Electronically signed by: Comment Normal [facility] Comment on above: Result Comment: Chelsey Boston MD, Pathologist Performed at: WB Performed By: #### U RCX #### [facility] [address] [address] [address] Ramses Dumas HPV Aptima Negative Normal Negative [facility] Comment on above: Result Comment: This nucleic acid amplification test detects fourteen high-risk HPV types (16,18,31,33,35,39,45,51,52,56,58,59,66,68) without differentiation. Performed at: =G Performed By: #### U RCX #### [facility] [address] [place] [address] Dr. Ramses Dumas HPV Genotype Reflex Comment Normal [facility] Comment on above: Result Comment: Crit eria not met, HPV Genotype not performed. Performed at: WB Performed By: #### U RCX #### [facility] [address] [place] [address] Dr. Ramses Dumas Methodology: Comment Normal [facility] Comment on above: Result Comment: This liquid based ThinPrep(R) pap test was screened with the use of an image guided system. Performed at: WB Performed By: #### U RCX #### [facility] [address] [place] [address] Dr. Ramses Dumas Note: Comment Normal [facility] Comment on above: Result Comment: The [...] WB Performed By: #### U RCX #### [facility] [address] [place] [address] Dr. Ramses Dumas Performed by: Comment Normal [facility] Comment on above: Result Comment: Cuca Briceno, Equipment Installer (ASCP) Performed at: WB Performed By: #### U RCX #### [facility] [address] [address] [address] Ramses Dumas Specimen adequacy: Comment Normal [facility] Comment on above: Result Comment: Sati sfactory for evaluation. Endocervical and/or squamous metaplastic cells (endocervical component) are present. Performed at: WB Performed By: #### U RCX #### [facility] [address] [address] [address] Ramses Dumas Lab Reportson 12-29-2022 Lab Reports [id number] .[id number]:127 [facility] RAD - MISCon 12-21-2022 RAD - MISC [id number] .[id number]:127 Normal [facility] OXALATE 24HR URINEon 023 Oxalates, Urine 44 mg/L Normal Undefined [facility] Comment on above: Performed By: #### U KJ 24 #### [facility] [address] [place] [address] Dr. Ramses Dumas Oxalates, Urine 24hr 44 mg/24 hr Critically high 4-31 [facility] Comment on above: Performed By: #### U KJ 24 #### [facility] [address] [place] [address] Dr. Ramses Dumas CITRATE URINE 24HRon 023 Citric Acid, U, 24hr 658 mg/24 hr Normal 320-1240 [facility] Comment on above: Result Comment: This test was developed and its performance characteristics determined by [facility]. It has not been cleared or approved by the Food and Drug Administration. Performed By: #### C ITRATU #### [facility] [address] [place] [address] Dr. Ramses Dumas Citric Acid, Urine 658 mg/L Normal Undefined [facility] Comment on above: Performed By: #### C ITRATU #### [facility] [address] [place] [address] Dr. Ramses Dumas MAGNESIUM 24HR URINEon 12-17 Magnesium 24hr Urine 119.0 mg/24 hr Normal 12.0-293.[address] [facility] Comment on above: Performed By: #### U RCX #### [facility] [address] [place] [address] Dr. Ramses Dumas Magnesium UR 11.9 mg/dL Normal Not Estab. [facility] Comment on above: Performed By: #### U RCX #### [facility] [address] [place] [address] Dr. Ramses Dumas PHOSPHORUS 24HR URINEon Phosphorus, Urine 81.4 mg/dL Normal Not Estab. The [facility] Comment on above: Performed By: #### B LDCX2 #### [facility] [address] [place] [address] Dr. Ramses Dumas Phosphorus, Urine 24hr 814 mg/24 hr Normal 261-1078 [facility] Comment on above: Performed By: #### B LDCX2 #### [facility] [address] [place] [address] Dr. Ramses Dumas PTH INTACTon 12-17-2022 PTH, Intact 46 pg/mL Normal 15-[address] [facility] Comment on above: Performed By: #### U RCX #### [facility] [address] [place] [address] Dr. Ramses Dumas URIC ACID 24 HR URINEon Uric Acid, Urine 69.9 mg/dL Normal Not Estab. [facility] Comment on above: Performed By: #### U KJ 24 #### [facility] [address] [place] [address] Dr. Ramses Dumas Uric Acid, Urine 24hr 699.0 mg/24 hr Normal 173.7-902. [address] [facility] Comment on above: Performed By: #### U KJ 24 #### [facility] [address] [place] [address] Dr. Ramses Dumas BUNon 12-16-2022 Urea nitrogen [Mass/Vol] 7.0 mg/dL Normal 7.0-18.[address] [facility] Comment on above: Performed By: #### C BC #### [facility] [address] [place] [address] Dr. Ramses Dumas CALCIUMon 12-16-2022 Calcium [Mass/Vol] 8.8 mg/dL Normal 8.5-10.1 [facility] Comment on above: Performed By: #### C BC #### [facility] [address] [place] [address] Dr. Ramses Dumas CALCIUM 24 HR URINEon 2022 CALC, 24 HR UR 295.0 mg/24 hr Normal 100.0-300.0 [facility] Comment on above: Performed By: #### B LDCX2 #### [facility] [address] [place] [address] Dr. Ramses Dumas UR CALCIUM 29.5 mg/dL Critically high 5.1-21.0 [facility] Comment on above: Performed By: #### B LDCX2 #### [facility] [address] [place] [address] Dr. Ramses Dumas CHLORIDEon 12-16-2022 Chloride [Moles/Vol] 105 mmol/L Normal 98-107 [facility] Comment on above: Performed By: #### C BC #### [facility] [address] [place] [address] Dr. Ramses Dumas CO2on 12-16-2022 CO2 [Moles/Vol] 26.4 mmol/L Normal 21.0-32.0 [facility] Comment on above: Performed By: #### C MP #### [facility] [address] [place] [address] Dr. Ramses Dumas CREA 24 HR URINEon 3 CREA, 24 HR UR 2337.30 mg/24 hr Critically high 800.00 -1,800 .00 [facility] Comment on above: Performed By: #### C VDTBH #### [facility] [address] [place] [address] Dr. Ramses Dumas URINE CREAT 233.73 mg/dL Normal 20.00-300.00 [facility] Comment on above: Performed By: #### C VDTBH #### [facility] [address] [address] [address] Ramses Dumas CREATININEon 12-16-2022 Creatinine [Mass/Vol] 0.70 mg/dL Normal 0.55-1.02 [facility] Comment on above: Performed By: #### C MP #### [facility] [address] [place] [address] Dr. Ramses Dumas EGFR-AF CAMEROONIAN >60 Normal >=60 [facility] Comment on above: Performed By: #### C MP #### [facility] [address] [place] [address] Dr. Ramses Dumas EGFR-NON AF CAMEROONIAN >60 Normal >=60 [facility] Comment on above: Performed By: #### C MP #### [facility] [address] [address] [address] Ramses Dumas NAon 12-16-2022 Sodium [Moles/Vol] 139 mmol/L Normal 136-145 [facility] Comment on above: Performed By: #### C MP #### [facility] [address] [place] [address] Dr. Ramses Dumas POTASSIUMon 12-16-2022 Potassium [Moles/Vol] 4.0 mmol/L Normal 3.5-5.1 [facility] Comment on above: Performed By: #### C MP #### [facility] [address] [place] [address] Dr. Ramses Dumas SODIUM 24 HR URINEon 023 NA, 24 HR UR 193 mmol/24 hr Normal 40-220 [facility] Comment on above: Performed By: #### C VDTBH #### [facility] [address] [place] [address] Dr. Ramses Dumas Sodium (U) [Moles/Vol] 193 mmol/L Critically high 30-90 [facility] Comment on above: Performed By: #### C VDTBH #### [facility] [address] [place] [address] Dr. Ramses Dumas UR TOT VOL 1000 ml/24 HR Normal [facility] Comment on above: Performed By: #### C VDTBH #### [facility] [address] [place] [address] Dr. Ramses Dumas Performed By: #### B LDCX2 #### [facility] [address] [place] [address] Dr. Ramses Dumas URIC ACID SERUMon 12-16-2022 Urate [Mass/Vol] 5.6 mg/dL Normal 2.6-6.0 [facility] Comment on above: Performed By: #### C MP #### [facility] [address] [place] [address] Dr. Ramses Dumas XR KUB 1 VIEWon [...] JENNIFER GATES Date: 2022-12-15 08:[address] [facility] CBC AUTO DIFFon 11-07-2022 BASO # 0.0 103/ul Normal 0.0-0.1 [facility] Comment on above: Performed By: #### U RCX #### [facility] [address] [place] [address] Dr. Ramses Dumas Basophils/100 WBC (Bld) 0.7 % Normal 0.2-2.[address] [facility] Comment on above: Performed By: #### U RCX #### [facility] [address] [place] [address] Dr. Ramses Dumas EO # 0.1 103/ul Normal 0.0-0.7 [facility] Comment on above: Performed By: #### U RCX #### [facility] [address] [place] [address] Dr. Ramses Dumas Eosinophils/100 WBC (Bld) 1.9 % Normal 0.9-7.0 [facility] Comment on above: Performed By: #### U RCX #### [facility] [address] [place] [address] Dr. Ramses Dumas Erythrocyte distribution width (RBC) [Ratio] 13.6 % Normal 11.0-15.0 [facility] Comment on above: Performed By: #### U RCX #### [facility] [address] [place] [address] Dr. Ramses Dumas Hematocrit (Bld) [Volume fraction] 37.3 % Normal 36.0-48.0 [facility] Comment on above: Performed By: #### U RCX #### [facility] [address] [place] [address] Dr. Ramses Dumas Hemoglobin (Bld) [Mass/Vol] 12.2 g/dL Normal 12.0-16.0 [facility] Comment on above: Performed By: #### U RCX #### [facility] [address] [place] [address] Dr. Ramses Dumas IG # 0.02 10e3/ul Normal 0.00-0.03 [facility] Comment on above: Performed By: #### U RCX #### [facility] [address] [place] [address] Dr. Ramses Dumas IG % 0.3 % Normal 0.0-0.5 [facility] Comment on above: Performed By: #### U RCX #### [facility] [address] [place] [address] Dr. Ramses Dumas LYMPH # 2.3 103/ul Normal 1.2-3.8 [facility] Comment on above: Performed By: #### U RCX #### [facility] [address] [place] [address] Dr. Ramses Dumas Lymphocytes/100 WBC (Bld) 39.6 % Normal 20.5-60.0 [facility] Comment on above: Performed By: #### U RCX #### [facility] [address] [place] [address] Dr. Ramses Dumas MANUAL DIFF REQ NO Normal [facility] Comment on above: Performed By: #### U RCX #### [facility] [address] [address] [address] Ramses Dumas MCH (RBC) [Entitic mass] 26.4 pg Critically low 26.7-34.0 [facility] Comment on above: Performed By: #### U RCX #### [facility] [address] [place] [address] Dr. Ramses Dumas MCHC (RBC) [Mass/Vol] 32.7 g/dL Normal 29.9-35.2 [facility] Comment on above: Performed By: #### U RCX #### [facility] [address] [place] [address] Dr. Ramses Dumas MCV (RBC) [Entitic vol] 80.7 fL Critically low 81.0-99.0 [facility] Comment on above: Performed By: #### U RCX #### [facility] [address] [place] [address] Dr. Ramses Dumas MONO # 0.5 103/ul Normal 0.3-0.8 [facility] Comment on above: Performed By: #### U RCX #### [facility] [address] [place] [address] Dr. Ramses Dumas Monocytes/100 WBC (Bld) 8.0 % Normal 1.7-12.0 [facility] Comment on above: Performed By: #### U RCX #### [facility] [address] [place] [address] Dr. Ramses Dumas NEUT # 2.9 103/ul Normal 1.4-6.[address] [facility] Comment on above: Performed By: #### U RCX #### [facility] [address] [place] [address] Dr. Ramses Dumas Neutrophils/100 WBC (Bld) 49.5 % Normal 43.0-75.0 [facility] Comment on above: Performed By: #### U RCX #### [facility] [address] [place] [address] Dr. Ramses Dumas Platelet mean volume (Bld) [Entitic vol] 9.0 fL Critically low 9.5-13.5 [facility] Comment on above: Performed By: #### U RCX #### [facility] [address] [place] [address] Dr. Ramses Dumas PLT 337 103/ul Normal 150-450 [facility] Comment on above: Performed By: #### U RCX #### [facility] [address] [place] [address] Dr. Ramses Dumas RBC 4.62 106/ul Normal 4.20-5.40 [facility] Comment on above: Performed By: #### U RCX #### [facility] [address] [place] [address] Dr. Ramses Dumas WBC 5.9 103/ul Normal 4.0-11.0 [facility] Comment on above: Performed By: #### U RCX #### [facility] [address] [place] [address] Dr. Ramses Dumas POINT OF CARE GLUCOSEon 10-20 Glucose [Mass/Vol] 115 mg/dL Critically high 74-[address] [facility] Comment on above: Performed By: #### C VDTBH #### [facility] [address] [place] [address] Dr. Ramses Dumas PREG QUANT HCGon 11-07-2022 HCG QUANT <1 Normal [facility] Comment on above: Performed By: #### C VDTBH #### [facility] [address] [place] [address] Dr. Ramses Dumas HCG RANGE SEE BELOW Normal [facility] Comment on above: Result Comment: 5-50 0.2-1 WEEK 50-500 1-2 WEEKS 100-5,000 2-3 WEEKS 500-10,000 3-4 WEEKS 1,000-50,000 4-5 WEEKS 10,000-100,000 5-6 WEEKS 15,000-200,000 6-8 WEEKS 10,000-100,000 2-3 MONTHS Performed By: #### C VDTBH #### [facility] [address] [place] [address] Dr. Ramses Dumas US PELVIS AND TRANSVAGon [...] cm right ovarian simple cyst Normal [facility] CBC AUTO DIFFon 11-03-2022 BASO # 0.1 103/ul Normal 0.0-0.1 [facility] Comment on above: Performed By: #### U RCX #### [facility] [address] [address] [address] Ramses Dumas Basophils/100 WBC (Bld) 0.8 % Normal 0.2-2.[address] [facility] Comment on above: Performed By: #### U RCX #### [facility] [address] [address] [address] Ramses Dumas EO # 0.1 103/ul Normal 0.0-0.[address] [facility] Comment on above: Performed By: #### U RCX #### [facility] [address] [address] [address] Ramses Dumas Eosinophils/100 WBC (Bld) 1.4 % Normal 0.9-7.[address] [facility] Comment on above: Performed By: #### U RCX #### [facility] [address] [address] [address] Ramses Dumas Erythrocyte distribution width (RBC) [Ratio] 13.4 % Normal 11.0-15.0 [facility] Comment on above: Performed By: #### U RCX #### [facility] [address] [place] [address] Dr. Ramses Dumas Hematocrit (Bld) [Volume fraction] 38.8 % Normal 36.0-48.0 [facility] Comment on above: Performed By: #### U RCX #### [facility] [address] [place] [address] Dr. Ramses Dumas Hemoglobin (Bld) [Mass/Vol] 12.7 g/dL Normal 12.0-16.0 [facility] Comment on above: Performed By: #### U RCX #### [facility] [address] [place] [address] Dr. Ramses Dumas IG # 0.01 10e3/ul Normal 0.00-0.03 [facility] Comment on above: Performed By: #### U RCX #### [facility] [address] [place] [address] Dr. Ramses Dumas IG % 0.1 % Normal 0.0-0.5 [facility] Comment on above: Performed By: #### U RCX #### [facility] [address] [place] [address] Dr. Ramses Dumas LYMPH # 1.9 103/ul Normal 1.2-3.8 [facility] Comment on above: Performed By: #### U RCX #### [facility] [address] [place] [address] Dr. Ramses Dumas Lymphocytes/100 WBC (Bld) 26.4 % Normal 20.5-60.0 [facility] Comment on above: Performed By: #### U RCX #### [facility] [address] [place] [address] Dr. Ramses Dumas MANUAL DIFF REQ NO Normal [facility] Comment on above: Performed By: #### U RCX #### [facility] [address] [place] [address] Dr. Ramses Dumas MCH (RBC) [Entitic mass] 26.3 pg Critically low 26.7-34.0 [facility] Comment on above: Performed By: #### U RCX #### [facility] [address] [address] [address] Ramses Dumas MCHC (RBC) [Mass/Vol] 32.7 g/dL Normal 29.9-35.[address] [facility] Comment on above: Performed By: #### U RCX #### [facility] [address] [address] [address] Ramses Dumas MCV (RBC) [Entitic vol] 80.5 fL Critically low 81.0-99.0 [facility] Comment on above: Performed By: #### U RCX #### [facility] [address] [address] [address] Ramses Dumas MONO # 0.6 103/ul Normal 0.3-0.8 [facility] Comment on above: Performed By: #### U RCX #### [facility] [address] [address] [address] Ramses Dumas Monocytes/100 WBC (Bld) 8.2 % Normal 1.7-12.0 [facility] Comment on above: Performed By: #### U RCX #### [facility] [address] [place] [address] Dr. Ramses Dumas NEUT # 4.5 103/ul Normal 1.4-6.5 [facility] Comment on above: Performed By: #### U RCX #### [facility] [address] [address] [address] Ramses Dumas Neutrophils/100 WBC (Bld) 63.1 % Normal 43.0-75.[address] [facility] Comment on above: Performed By: #### U RCX #### [facility] [address] [address] [address] Ramses Dumas Platelet mean volume (Bld) [Entitic vol] 8.9 fL Critically low 9.5-13.5 [facility] Comment on above: Performed By: #### U RCX #### [facility] [address] [place] [address] Dr. Ramses Dumas PLT 340 103/ul Normal 150-[address] [facility] Comment on above: Performed By: #### U RCX #### [facility] [address] [address] [address] Ramses Dumas RBC 4.82 106/ul Normal 4.20-5.40 [facility] Comment on above: Performed By: #### U RCX #### [facility] [address] [address] [address] Ramses Dumas WBC 7.1 103/ul Normal 4.0-11.0 [facility] Comment on above: Performed By: #### U RCX #### [facility] [address] [address] [address] Ramses Dumas Covid-19 PCR ([facility])on 10-19 SARS-CoV-2 (COVID-19) RNA FRANCESCA+probe Ql (Unsp spec) Not detected Normal NOT DETECTED [facility] Comment on above: Result Comment: This test is not yet approved or cleared by the [place] FDA. When there are no FDA-approved or cleared tests available, and other criteria are met, FDA can make tests available under an emergency access mechanism called an Emergency Use Authorization (EUA). The EUA for this test is supported by the [place] of Health and Human Service's (HHS's) declaration [...] SARS-CoV-2. Performed By: #### U RCX #### [facility] [address] [place] [address] Dr. Ramses Dumas FREE T4on 11-03-2022 Free T4 [Mass/Vol] 0.99 ng/dL Normal 0.76-1.46 [facility] Comment on above: Performed By: #### B LDCX2 #### [facility] [address] [place] [address] Dr. Ramses Dumas GLYCOHEMOGLOBIN A1Con 2022 ADA RECOMMENDATION SEE BELOW Normal [facility] Comment on above: Result Comment: ADA RECOMMENDED LIMIT 4.0 - 6.0 ADA THERAPEUTIC TARGET < 7.0 ACTION SUGGESTED > 7.0 Performed By: #### C VDTBH #### [facility] [address] [place] [address] Dr. Ramses Dumas Glucose [Mass/Vol] 117 mg/dL Normal [facility] Comment on above: Performed By: #### C VDTBH #### [facility] [address] [place] [address] Dr. Ramses Dumas HbA1c (Bld) [Mass fraction] 5.7 % Normal 4.5-6.2 [facility] Comment on above: Performed By: #### C VDTBH #### [facility] [address] [place] [address] Dr. Ramses Dumas PROTIMEon 11-03-2022 INR Coag (PPP) [Relative time] 0.97 {INR} Normal [facility] Comment on above: Performed By: #### U KJ 24 #### [facility] [address] [place] [address] Dr. Ramses Dumas INR GUIDELINES SEE BELOW Normal [facility] Comment on above: Result Comment: TOÑA RED INR: 2.0 - 3.0 CONDITIONS NOT LISTED BELOW 2.5 - 3.5 FOR PROSTHETIC HEART VALVE REPLACEMENT 2.5 - 3.5 RECURRENT THROMBOSIS Performed By: #### U KJ 24 #### [facility] [address] [place] [address] Dr. Ramses Dumas PT Coag (PPP) [Time] 10.3 s Normal 9.0-11.[address] [facility] Comment on above: Performed By: #### U KJ 24 #### [facility] [address] [place] [address] Dr. Ramses Dumas PTTon 11-03-2022 aPTT Coag (Bld) [Time] 27.7 s Normal 22.3-36.2 [facility] Comment on above: Performed By: #### U KJ 24 #### [facility] [address] [address] [address] Ramses Dumas TSHon 11-03-2022 TSH 0.667 uIU/mL Normal 0.358-3.740 [facility] Comment on above: Performed By: #### C VDTBH #### [facility] [address] [address] [address] Ramses Dumas PREG HCG QUALon 09-18-2022 , QUAL Negative Normal NEGATIVE [facility] Comment on above: Performed By: #### U KJ 24 #### [facility] [address] [address] [address] Ramses Dumas Covid-19 PCR ([facility])on 08-20 SARS-CoV-2 (COVID-19) RNA FRANCESCA+probe Ql (Unsp spec) Not detected Normal NOT DETECTED [facility] Comment on above: Result Comment: This test is not yet approved or cleared by the [place] FDA. When there are no FDA-approved or cleared tests available, and other criteria are met, FDA can make tests available under an emergency access mechanism called an Emergency Use Authorization (EUA). The EUA for this test is supported by the [place] of Health and Human Service's (HHS's) declaration [...] SARS-CoV-2. Performed By: #### C VDTBH #### [facility] [address] [place] [address] Dr. Ramses Dumas CBC AUTO DIFFon 09-05-2022 BASO # 0.1 103/ul Normal 0.0-0.1 [facility] Comment on above: Performed By: #### B LDCX2 #### [facility] [address] [place] [address] Dr. Ramses Dumas Basophils/100 WBC (Bld) 0.7 % Normal 0.2-2.0 [facility] Comment on above: Performed By: #### B LDCX2 #### [facility] [address] [place] [address] Dr. Ramses Dumas EO # 0.2 103/ul Normal 0.0-0.[address] [facility] [facility] Comment on above: Performed By: #### B LDCX2 #### [facility] [address] [place] [address] Dr. Ramses Dumas Eosinophils/100 WBC (Bld) 2.2 % Normal 0.9-7.0 [facility] Comment on above: Performed By: #### B LDCX2 #### [facility] [address] [place] [address] Dr. Ramses Dumas Erythrocyte distribution width (RBC) [Ratio] 13.9 % Normal 11.0-15.0 [facility] Comment on above: Performed By: #### B LDCX2 #### [facility] [address] [place] [address] Dr. Ramses Dumas Hematocrit (Bld) [Volume fraction] 38.8 % Normal 36.0-48.0 [facility] Comment on above: Performed By: #### B [id number] #### [facility] [address] [place] [address] Dr. Ramses Dumas Hemoglobin (Bld) [Mass/Vol] 12.6 g/dL Normal 12.0-16.[address] [facility] Comment on above: Performed By: #### B LDCX2 #### [facility] [address] [place] [address] Dr. Ramses Dumas IG # 0.03 10e3/ul Normal 0.00-0.03 [facility] Comment on above: Performed By: #### B LDCX2 #### [facility] [address] [place] [address] Dr. Ramses Dumas IG % 0.3 % Normal 0.0-0.5 [facility] Comment on above: Performed By: #### B LDCX2 #### [facility] [address] [place] [address] Dr. Ramses Dumas LYMPH # 2.3 103/ul Normal 1.2-3.8 [facility] Comment on above: Performed By: #### B LDCX2 #### [facility] [address] [place] [address] Dr. Ramses Dumas Lymphocytes/100 WBC (Bld) 21.3 % Normal 20.5-60.0 [facility] Comment on above: Performed By: #### B LDCX2 #### [facility] [address] [place] [address] Dr. Ramses Dumas MANUAL DIFF REQ NO Normal [facility] Comment on above: Performed By: #### B LDCX2 #### [facility] [address] [place] [address] Dr. Ramses Dumas MCH (RBC) [Entitic mass] 26.4 pg Critically low 26.7-34.0 [facility] Comment on above: Performed By: #### B LDCX2 #### [facility] [address] [place] [address] Dr. Ramses Dumas MCHC (RBC) [Mass/Vol] 32.5 g/dL Normal 29.9-35.2 [facility] Comment on above: Performed By: #### B LDCX2 #### [facility] [address] [place] [address] Dr. Ramses Dumas MCV (RBC) [Entitic vol] 81.2 fL Normal 81.0-99.0 [facility] Comment on above: Performed By: #### B LDCX2 #### [facility] [address] [place] [address] Dr. Ramses Dumas MONO # 0.8 103/ul Normal 0.3-0.8 [facility] Comment on above: Performed By: #### B LDCX2 #### [facility] [address] [place] [address] Dr. Ramses Dumas Monocytes/100 WBC (Bld) 7.4 % Normal 1.7-12.0 [facility] Comment on above: Performed By: #### B LDCX2 #### [facility] [address] [place] [address] Dr. Ramses Dumas NEUT # 7.3 103/ul Critically high 1.4-6.5 [facility] Comment on above: Performed By: #### B LDCX2 #### [facility] [address] [place] [address] Dr. Ramses Dumas Neutrophils/100 WBC (Bld) 68.1 % Normal 43.0-75.[address] [facility] Comment on above: Performed By: #### B LDCX2 #### [facility] [address] [place] [address] Dr. Ramses Dumas Platelet mean volume (Bld) [Entitic vol] 8.8 fL Critically low 9.5-13.5 [facility] Comment on above: Performed By: #### B LDCX2 #### [facility] [address] [place] [address] Dr. Ramses Dumas PLT 323 103/ul Normal 150-[address] [facility] Comment on above: Performed By: #### B LDCX2 #### [facility] [address] [place] [address] Dr. Ramses Dumas RBC 4.78 106/ul Normal 4.20-5.[address] [facility] Comment on above: Performed By: #### B LDCX2 #### [facility] [address] [place] [address] Dr. Ramses Dumas WBC 10.7 103/ul Normal 4.0-11.[address] [facility] Comment on above: Performed By: #### B LDCX2 #### [facility] [address] [place] [address] Dr. Ramses Dumas CULTURE URINEon 09-05-2022 CULTURE URINE Culture Observations : LIGHT GROWTH OF MIXED GENITAL DAIANA. NO POTENTIAL PATHOGENS SEEN. Normal [facility] Comment on above: Performed By: #### U RCX #### [facility] [address] [place] [address] Dr. Ramses Dumas ER URINE PROFILEon 2 Bilirubin Ql (U) Negative Normal NEGATIVE [facility] Comment on above: Performed By: #### B LDCX2 #### [facility] [address] [place] [address] Dr. Ramses Dumas Clarity (U) CLOUDY Abnormal CLEAR [facility] Comment on above: Performed By: #### B LDCX2 #### [facility] [address] [place] [address] Dr. Ramses Dumas Color (U) YELLOW Normal YELLOW [facility] Comment on above: Performed By: #### B LDCX2 #### [facility] [address] [place] [address] Dr. Ramses DELEON A micrscopic examination will be performed if indicated. Normal [facility] Comment on above: Performed By: #### B LDCX2 #### [facility] [address] [place] [address] Dr. Ramses Dumas Glucose Ql (U) Negative Normal NEGATIVE [facility] Comment on above: Performed By: #### B LDCX2 #### [facility] [address] [place] [address] Dr. Ramses Dumas Hemoglobin Ql (U) LARGE Abnormal NEGATIVE [facility] Comment on above: Performed By: #### B LDCX2 #### [facility] [address] [place] [address] Dr. Ramses Dumas Ketones Ql (U) Negative Normal NEGATIVE [facility] Comment on above: Performed By: #### B LDCX2 #### [facility] [address] [place] [address] Dr. Ramses Dumas LEUKOCYTES SMALL Abnormal NEGATIVE [facility] Comment on above: Performed By: #### B LDCX2 #### [facility] [address] [place] [address] Dr. Ramses Dumas Nitrite Ql (U) Negative Normal NEGATIVE [facility] Comment on above: Performed By: #### B LDCX2 #### [facility] [address] [place] [address] Dr. Ramses Dumas pH (U) 6.0 [pH] Normal 5-9 [facility] Comment on above: Performed By: #### B LDCX2 #### [facility] [address] [place] [address] Dr. Ramses Dumas Protein (U) [Mass/Vol] 100 mg/dL Abnormal NEGATIVE/ TRACE [facility] Comment on above: Performed By: #### B LDCX2 #### [facility] [address] [place] [address] Dr. Ramses Dumas SPEC GRAVITY >=1.030 Abnormal 1.005-<=1.02 5 [facility] Comment on above: Performed By: #### B LDCX2 #### [facility] [address] [place] [address] Dr. Ramses Dumas UR MICRO IND INDICATED Normal [facility] Comment on above: Performed By: #### B LDCX2 #### [facility] [address] [place] [address] Dr. Ramses Dumas Urobilinogen Qn (U) 0.2 {Lucero'U}/dL Normal 0.2 - 1. 0 [facility] Comment on above: Performed By: #### B LDCX2 #### [facility] [address] [place] [address] Dr. Ramses Dumas URon 09-05-2022 , QUAL Negative Normal NEGATIVE [facility] Comment on above: Performed By: #### B LDCX2 #### [facility] [address] [place] [address] Dr. Ramses Dumas PROF CHEM 8 (BAS METB)on Anion gap [Moles/Vol] 11.7 mmol/L Normal [facility] Comment on above: Performed By: #### C MP #### [facility] [address] [place] [address] Dr. Ramses Dumas Calcium [Mass/Vol] 9.1 mg/dL Normal 8.5-10.1 [facility] Comment on above: Performed By: #### C MP #### [facility] [address] [place] [address] Dr. Ramses Dumas Chloride [Moles/Vol] 103 mmol/L Normal 98-107 [facility] Comment on above: Performed By: #### C MP #### [facility] [address] [address] [address] Ramses Dumas CO2 [Moles/Vol] 25.9 mmol/L Normal 21.0-32.0 [facility] Comment on above: Performed By: #### C MP #### [facility] [address] [address] [address] Ramses Dumas Creatinine [Mass/Vol] 0.77 mg/dL Normal 0.55-1.02 [facility] Comment on above: Performed By: #### C MP #### [facility] [address] [address] [address] Ramses Dumas EGFR-AF CAMEROONIAN >60 Normal >=60 [facility] Comment on above: Performed By: #### C MP #### [facility] [address] [address] [address] Ramses Dumas EGFR-NON AF CAMEROONIAN >60 Normal >=60 [facility] Comment on above: Performed By: #### C MP #### [facility] [address] [address] [address] Ramses Dumas Glucose [Mass/Vol] 124 mg/dL Critically high 74-106 [facility] Comment on above: Performed By: #### C MP #### [facility] [address] [address] [address] Ramses Dumas Potassium [Moles/Vol] 3.6 mmol/L Normal 3.5-5.1 [facility] Comment on above: Performed By: #### C MP #### [facility] [address] [address] [address] Ramses Dumas Sodium [Moles/Vol] 137 mmol/L Normal 136-145 [facility] Comment on above: Performed By: #### C MP #### [facility] [address] [address] [address] Ramses Dumas Urea nitrogen [Mass/Vol] 12.0 mg/dL Normal 7.0-18.0 [facility] Comment on above: Performed By: #### C MP #### [facility] [address] [address] [address] Ramses Dumas Urea nitrogen/Creatinine [Mass ratio] 15.6 mg/mg Normal [facility] Comment on above: Performed By: #### C MP #### [facility] [address] [place] [address] Dr. Ramses Dumas URINE MICROSCOPIC ONLYon AMORPHOUS CRYSTALS RARE Normal [facility] Comment on above: Performed By: #### B LDCX2 #### [facility] [address] [place] [address] Dr. Ramses Dumas BACTERIA TRACE Abnormal NONE SEEN [facility] Comment on above: Performed By: #### B LDCX2 #### [facility] [address] [place] [address] Dr. Ramses Dumas Bacteria identified Cx Nom (U) INDICATED Normal [facility] Comment on above: Performed By: #### B LDCX2 #### [facility] [address] [place] [address] Dr. Ramses Dumas CA OX CRYSTALS RARE Normal [facility] Comment on above: Performed By: #### B LDCX2 #### [facility] [address] [place] [address] Dr. Ramses Dumas CAST NONE SEEN Normal NONE SEEN [facility] Comment on above: Performed By: #### B LDCX2 #### [facility] [address] [place] [address] Dr. Ramses Dumas Crystals LM Nom (Urine sed) SEEN Abnormal NONE SEEN [facility] Comment on above: Performed By: #### B LDCX2 #### [facility] [address] [address] [address] Ramses Dumas Epithelial cells LM Ql (Urine sed) FEW Abnormal NONE SEEN /RARE [facility] Comment on above: Performed By: #### B LDCX2 #### [facility] [address] [place] [address] Dr. Ramses Dumas MUCOUS TRACE Abnormal NONE SEEN [facility] Comment on above: Performed By: #### B LDCX2 #### [facility] [address] [address] [address] Ramses Dumas RBC 50-75 Abnormal 0-[address] [facility] Comment on above: Performed By: #### B LDCX2 #### [facility] [address] [place] [address] Dr. Ramses Dumas WBC 20-50 Abnormal NONE SEEN [facility] Comment on above: Performed By: #### B LDCX2 #### [facility] [address] [address] [address] Ramses Dumas YEAST PRESENT Abnormal NONE SEEN [facility] Comment on above: Performed By: #### B LDCX2 #### [facility] [address] [place] [address] Dr. Ramses Dumas US KIDNEYSon 09-05-2022 US [...] GLEN PEREZ Date: 2022-09-05 11:[address] [facility] CT ABD/PELVIS WO CONon 08-29 CT [...] ERICKA IGLESIAS Date: 2022-08-29 01:[address] [facility] CULTURE URINEon 08-29-2022 CULTURE URINE Culture Observations : LIGHT GROWTH OF MIXED GENITAL DAIANA. NO POTENTIAL PATHOGENS SEEN. Normal [facility] Comment on above: Performed By: #### U RCX #### [facility] [address] [place] [address] Dr. Ramses Dumas CBC AUTO DIFFon 08-28-2022 BASO # 0.1 103/ul Normal 0.0-0.1 [facility] Comment on above: Performed By: #### U RCX #### [facility] [address] [address] [address] Ramses Dumas Basophils/100 WBC (Bld) 0.5 % Normal 0.2-2.[address] [facility] Comment on above: Performed By: #### U RCX #### [facility] [address] [place] [address] Dr. Ramses Dumas EO # 0.3 103/ul Normal 0.0-0.7 [facility] Comment on above: Performed By: #### U RCX #### [facility] [address] [address] [address] Ramses Dumas Eosinophils/100 WBC (Bld) 2.3 % Normal 0.9-7.0 [facility] Comment on above: Performed By: #### U RCX #### [facility] [address] [place] [address] Dr. Ramses Dumas Erythrocyte distribution width (RBC) [Ratio] 13.7 % Normal 11.0-15.0 [facility] Comment on above: Performed By: #### U RCX #### [facility] [address] [place] [address] Dr. Ramses Dumas Hematocrit (Bld) [Volume fraction] 36.7 % Normal 36.0-48.0 [facility] Comment on above: Performed By: #### U RCX #### [facility] [address] [place] [address] Dr. Ramses Dumas Hemoglobin (Bld) [Mass/Vol] 12.3 g/dL Normal 12.0-16.0 [facility] Comment on above: Performed By: #### U RCX #### [facility] [address] [place] [address] Dr. Ramses Dumas IG # 0.16 10e3/ul Critically high 0.00-0.03 [facility] Comment on above: Performed By: #### U RCX #### [facility] [address] [place] [address] Dr. Ramses Dumas IG % 1.1 % Critically high 0.0-0.5 [facility] Comment on above: Performed By: #### U RCX #### [facility] [address] [place] [address] Dr. Ramses Dmuas LYMPH # 4.6 103/ul Critically high 1.2-3.8 [facility] Comment on above: Performed By: #### U RCX #### [facility] [address] [place] [address] Dr. Ramses Dumas Lymphocytes/100 WBC (Bld) 31.8 % Normal 20.5-60.0 [facility] Comment on above: Performed By: #### U RCX #### [facility] [address] [place] [address] Dr. Ramses Dumas MANUAL DIFF REQ NO Normal [facility] Comment on above: Performed By: #### U RCX #### [facility] [address] [place] [address] Dr. Ramses Dumas MCH (RBC) [Entitic mass] 26.9 pg Normal 26.7-34.0 [facility] Comment on above: Performed By: #### U RCX #### [facility] [address] [place] [address] Dr. Ramses Dumas MCHC (RBC) [Mass/Vol] 33.5 g/dL Normal 29.9-35.2 [facility] Comment on above: Performed By: #### U RCX #### [facility] [address] [place] [address] Dr. Ramses Dumas MCV (RBC) [Entitic vol] 80.3 fL Critically low 81.0-99.0 [facility] Comment on above: Performed By: #### U RCX #### [facility] [address] [place] [address] Dr. Ramses Dumas MONO # 1.0 103/ul Critically high 0.3-0.8 [facility] Comment on above: Performed By: #### U RCX #### [facility] [address] [place] [address] Dr. Ramses Dumas Monocytes/100 WBC (Bld) 7.0 % Normal 1.7-12.0 [facility] Comment on above: Performed By: #### U RCX #### [facility] [address] [place] [address] Dr. Ramses Dumas NEUT # 8.2 103/ul Critically high 1.4-6.5 [facility] Comment on above: Performed By: #### U RCX #### [facility] [address] [place] [address] Dr. Ramses Dumas Neutrophils/100 WBC (Bld) 57.3 % Normal 43.0-75.0 [facility] Comment on above: Performed By: #### U RCX #### [facility] [address] [place] [address] Dr. Ramses Dumas Platelet mean volume (Bld) [Entitic vol] 8.6 fL Critically low 9.5-13.5 [facility] Comment on above: Performed By: #### U RCX #### [facility] [address] [place] [address] Dr. Ramses Dumas PLT 395 103/ul Normal 150-450 [facility] Comment on above: Performed By: #### U RCX #### [facility] [address] [place] [address] Dr. Ramses Dumas RBC 4.57 106/ul Normal 4.20-5.40 [facility] Comment on above: Performed By: #### U RCX #### [facility] [address] [place] [address] Dr. Ramses Dumas WBC 14.3 103/ul Critically high 4.0-11.0 [facility] Comment on above: Performed By: #### U RCX #### [facility] [address] [place] [address] Dr. Ramses KUMAR URINE PROFILEon 2 Bilirubin Ql (U) Negative Normal NEGATIVE [facility] Comment on above: Performed By: #### U KJ 24 #### [facility] [address] [place] [address] Dr. Ramses Dumas Clarity (U) CLEAR Normal CLEAR [facility] Comment on above: Performed By: #### U KJ 24 #### [facility] [address] [place] [address] Dr. Ramses Dumas Color (U) LT. YELLOW Normal YELLOW [facility] Comment on above: Performed By: #### U KJ 24 #### [facility] [address] [place] [address] Dr. Ramses Dumas ERUAHWalter A micrscopic examination will be performed if indicated. Normal [facility] Comment on above: Performed By: #### U KJ 24 #### [facility] [address] [address] [address] Ramses Dumas Glucose Ql (U) Negative Normal NEGATIVE [facility] Comment on above: Performed By: #### U KJ 24 #### [facility] [address] [place] [address] Dr. Ramses Dumas Hemoglobin Ql (U) LARGE Abnormal NEGATIVE [facility] Comment on above: Performed By: #### U KJ 24 #### [facility] [address] [place] [address] Dr. Ramses Dumas Ketones Ql (U) Negative Normal NEGATIVE [facility] Comment on above: Performed By: #### U KJ 24 #### [facility] [address] [place] [address] Dr. Ramses Dumas LEUKOCYTES MODERATE Abnormal NEGATIVE [facility] Comment on above: Performed By: #### U KJ 24 #### [facility] [address] [place] [address] Dr. Ramses Dumas Nitrite Ql (U) Negative Normal NEGATIVE [facility] Comment on above: Performed By: #### U KJ 24 #### [facility] [address] [place] [address] Dr. Ramses Dumas pH (U) 6.5 [pH] Normal 5-9 [facility] Comment on above: Performed By: #### U KJ 24 #### [facility] [address] [place] [address] Dr. Ramses Dumas Protein (U) [Mass/Vol] 100 mg/dL Abnormal NEGATIVE/ TRACE [facility] Comment on above: Performed By: #### U KJ 24 #### [facility] [address] [place] [address] Dr. Ramses Dumas SPEC GRAVITY 1.020 Normal 1.005-<=1.02 5 [facility] Comment on above: Performed By: #### U KJ 24 #### [facility] [address] [place] [address] Dr. Ramses Dumas UR MICRO IND INDICATED Normal [facility] Comment on above: Performed By: #### U KJ 24 #### [facility] [address] [place] [address] Dr. Ramses Dumas Urobilinogen Qn (U) 0.2 {Lucero'U}/dL Normal 0.2 - 1. 0 [facility] Comment on above: Performed By: #### U KJ 24 #### [facility] [address] [place] [address] Dr. Ramses Dumas PROF 14(COMP METB)on 022 Albumin [Mass/Vol] 3.3 g/dL Critically low 3.4-5.[address] [facility] Comment on above: Performed By: #### C MP #### [facility] [address] [place] [address] Dr. Ramses Dumas Albumin/Globulin [Mass ratio] 0.8 {ratio} Normal [facility] Comment on above: Performed By: #### C MP #### [facility] [address] [place] [address] Dr. Ramses Dumas ALP [Catalytic activity/Vol] 108 U/L Normal 46-116 [facility] Comment on above: Performed By: #### C MP #### [facility] [address] [place] [address] Dr. Ramses Dumas ALT [Catalytic activity/Vol] 103 U/L Critically high 14-59 [facility] Comment on above: Performed By: #### C MP #### [facility] [address] [place] [address] Dr. Ramses Dumas Anion gap [Moles/Vol] 6.6 mmol/L Normal [facility] Comment on above: Performed By: #### C MP #### [facility] [address] [place] [address] Dr. Ramses Dumas AST [Catalytic activity/Vol] 21 U/L Normal 15-37 [facility] Comment on above: Performed By: #### C MP #### [facility] [address] [place] [address] Dr. Ramses Dumas Bilirubin [Mass/Vol] 0.2 mg/dL Normal 0.2-1.0 [facility] Comment on above: Performed By: #### C MP #### [facility] [address] [place] [address] Dr. Ramses Dumas Calcium [Mass/Vol] 9.2 mg/dL Normal 8.5-10.1 [facility] Comment on above: Performed By: #### C MP #### [facility] [address] [address] [address] Ramses Dumas Chloride [Moles/Vol] 102 mmol/L Normal 98-107 [facility] Comment on above: Performed By: #### C MP #### [facility] [address] [address] [address] Ramses Dumas CO2 [Moles/Vol] 28.8 mmol/L Normal 21.0-32.0 [facility] Comment on above: Performed By: #### C MP #### [facility] [address] [place] [address] Dr. Ramses Dumas Creatinine [Mass/Vol] 0.92 mg/dL Normal 0.55-1.02 [facility] Comment on above: Performed By: #### C MP #### [facility] [address] [place] [address] Dr. Ramses Dumas EGFR-AF CAMEROONIAN >60 Normal >=60 [facility] Comment on above: Performed By: #### C MP #### [facility] [address] [place] [address] Dr. Ramses Dumas EGFR-NON AF CAMEROONIAN >60 Normal >=60 [facility] Comment on above: Performed By: #### C MP #### [facility] [address] [place] [address] Dr. Ramses Dumas Globulin (S) [Mass/Vol] 4.1 g/dL Normal [facility] Comment on above: Performed By: #### C MP #### [facility] [address] [address] [address] Ramses Dumas Glucose [Mass/Vol] 114 mg/dL Critically high 74-106 [facility] Comment on above: Performed By: #### C MP #### [facility] [address] [place] [address] Dr. Ramses Dumas Potassium [Moles/Vol] 3.4 mmol/L Critically low 3.5-5.1 [facility] Comment on above: Performed By: #### C MP #### [facility] [address] [address] [address] Ramses Dumas Protein [Mass/Vol] 7.4 g/dL Normal 6.4-8.2 [facility] Comment on above: Performed By: #### C MP #### [facility] [address] [address] [address] Ramses Dumas Sodium [Moles/Vol] 134 mmol/L Critically low 136-145 Th [facility] Comment on above: Performed By: #### C MP #### [facility] [address] [address] [address] Ramses Dumas Urea nitrogen [Mass/Vol] 11.0 mg/dL Normal 7.0-18.0 [facility] Comment on above: Performed By: #### C MP #### [facility] [address] [place] [address] Dr. Ramses Dumas Urea nitrogen/Creatinine [Mass ratio] 12.0 mg/mg Normal [facility] Comment on above: Performed By: #### C MP #### [facility] [address] [place] [address] Dr. Ramses Dumas URINE MICROSCOPIC ONLYon BACTERIA MODERATE Abnormal NONE SEEN [facility] Comment on above: Performed By: #### U KJ 24 #### [facility] [address] [place] [address] Dr. Ramses Dumas Bacteria identified Cx Nom (U) INDICATED Normal [facility] Comment on above: Performed By: #### U KJ 24 #### [facility] [address] [place] [address] Dr. Ramses Dumas CAST NONE SEEN Normal NONE SEEN [facility] Comment on above: Performed By: #### U KJ 24 #### [facility] [address] [place] [address] Dr. Ramses Dumas Crystals LM Nom (Urine sed) NONE SEEN Normal NONE SEEN [facility] Comment on above: Performed By: #### U KJ 24 #### [facility] [address] [place] [address] Dr. Ramses Dumas Epithelial cells LM Ql (Urine sed) RARE Normal NONE SEEN /RARE [facility] Comment on above: Performed By: #### U KJ 24 #### [facility] [address] [place] [address] Dr. Ramses Dumas MUCOUS NONE SEEN Normal NONE SEEN [facility] Comment on above: Performed By: #### U KJ 24 #### [facility] [address] [place] [address] Dr. Ramses Dumas RBC 20-50 Abnormal 0-[address] [facility] Comment on above: Performed By: #### U KJ 24 #### [facility] [address] [place] [address] Dr. Ramses Dumas WBC 5-10 Abnormal NONE SEEN [facility] Comment on above: Performed By: #### U KJ 24 #### [facility] [address] [place] [address] Dr. Ramses Dumas CULTURE BLOODon 08-25-2022 Microscopic [...] F Tetracycline >=16 R F Normal [facility] Comment on above: Performed By: #### B LDCX2 #### [facility] [address] [place] [address] Dr. Ramses Dumas Microscopic examination of blood, [...] F Tetracycline >=16 R F Normal [facility] Comment on above: Performed By: #### C BC #### [facility] [address] [place] [address] Dr. Ramses Dumas CBC AUTO DIFFon 08-24-2022 BASO # 0.0 103/ul Normal 0.0-0.1 [facility] Comment on above: Performed By: #### C BC #### [facility] [address] [place] [address] Dr. Ramses Dumas Basophils/100 WBC (Bld) 0.1 % Critically low 0.2-2.0 [facility] Comment on above: Performed By: #### C BC #### [facility] [address] [place] [address] Dr. Ramses Dumas EO # 0.0 103/ul Normal 0.0-0.[address] [facility] Comment on above: Performed By: #### C BC #### [facility] [address] [place] [address] Dr. Ramses Dumas Eosinophils/100 WBC (Bld) 0.0 % Critically low 0.9-7.0 [facility] Comment on above: Performed By: #### C BC #### [facility] [address] [place] [address] Dr. Ramses Dumas Erythrocyte distribution width (RBC) [Ratio] 13.5 % Normal 11.0-15.[address] [facility] Comment on above: Performed By: #### C BC #### [facility] [address] [place] [address] Dr. Ramses Dumas Hematocrit (Bld) [Volume fraction] 33.0 % Critically low 36.0-48.0 [facility] Comment on above: Performed By: #### C BC #### [facility] [address] [address] [address] Ramses Dumas Hemoglobin (Bld) [Mass/Vol] 10.7 g/dL Critically low 12.0-16.0 [facility] Comment on above: Performed By: #### C BC #### [facility] [address] [address] [address] Ramses Dumas IG # 0.04 10e3/ul Critically high 0.00-0.03 [facility] Comment on above: Performed By: #### C BC #### [facility] [address] [place] [address] Dr. Ramses Dumas IG % 0.4 % Normal 0.0-0.5 [facility] Comment on above: Performed By: #### C BC #### [facility] [address] [place] [address] Dr. Ramses Dumas LYMPH # 0.8 103/ul Critically low 1.2-3.8 [facility] Comment on above: Performed By: #### C BC #### [facility] [address] [place] [address] Dr. Ramses Dumas Lymphocytes/100 WBC (Bld) 7.9 % Critically low 20.5-60.0 [facility] Comment on above: Performed By: #### C BC #### [facility] [address] [place] [address] Dr. Ramses Dumas MANUAL DIFF REQ NO Normal [facility] Comment on above: Performed By: #### C BC #### [facility] [address] [place] [address] Dr. Ramses Dumas MCH (RBC) [Entitic mass] 26.5 pg Critically low 26.7-34.0 [facility] Comment on above: Performed By: #### C BC #### [facility] [address] [place] [address] Dr. Ramses Dumas MCHC (RBC) [Mass/Vol] 32.4 g/dL Normal 29.9-35.2 [facility] Comment on above: Performed By: #### C BC #### [facility] [address] [place] [address] Dr. Ramses Dumas MCV (RBC) [Entitic vol] 81.7 fL Normal 81.0-99.0 [facility] Comment on above: Performed By: #### C BC #### [facility] [address] [place] [address] Dr. Ramses Dumas MONO # 0.6 103/ul Normal 0.3-0.[address] [facility] Comment on above: Performed By: #### C BC #### [facility] [address] [place] [address] Dr. Ramses Dumas Monocytes/100 WBC (Bld) 6.3 % Normal 1.7-12.[address] [facility] Comment on above: Performed By: #### C BC #### [facility] [address] [place] [address] Dr. Ramses Dumas NEUT # 8.6 103/ul Critically high 1.4-6.5 [facility] Comment on above: Performed By: #### C BC #### [facility] [address] [place] [address] Dr. Ramses Dumas Neutrophils/100 WBC (Bld) 85.3 % Critically high 43.0-75.[address] [facility] Comment on above: Performed By: #### C BC #### [facility] [address] [place] [address] Dr. Ramses Dumas Platelet mean volume (Bld) [Entitic vol] 9.1 fL Critically low 9.5-13.[address] [facility] Comment on above: Performed By: #### C BC #### [facility] [address] [place] [address] Dr. Ramses Dumas PLT 248 103/ul Normal 150-[address] [facility] Comment on above: Performed By: #### C BC #### [facility] [address] [place] [address] Dr. Ramses Dumas RBC 4.04 106/ul Critically low 4.20-5.40 [facility] Comment on above: Performed By: #### C BC #### [facility] [address] [place] [address] Dr. Ramses Dumas WBC 10.1 103/ul Normal 4.0-11.0 [facility] Comment on above: Performed By: #### C BC #### [facility] [address] [place] [address] Dr. Ramses Dumas CULTURE URINEon 08-24-2022 CULTURE [...] F Tetracycline >=16 R F Normal [facility] Comment on above: Performed By: #### U RCX #### [facility] [address] [place] [address] Dr. Ramses Dumas PROF 14(COMP METB)on 022 Albumin [Mass/Vol] 2.4 g/dL Critically low 3.4-5.0 Th [facility] Comment on above: Performed By: #### C VDTBH #### [facility] [address] [place] [address] Dr. Ramses Dumas Albumin/Globulin [Mass ratio] 0.7 {ratio} Normal [facility] Comment on above: Performed By: #### C VDTBH #### [facility] [address] [place] [address] Dr. Ramses Dumas ALP [Catalytic activity/Vol] 95 U/L Normal 46-116 [facility] Comment on above: Performed By: #### C VDTBH #### [facility] [address] [place] [address] Dr. Ramses Dumas ALT [Catalytic activity/Vol] 327 U/L Critically high 14-59 [facility] Comment on above: Performed By: #### C VDTBH #### [facility] [address] [place] [address] Dr. Ramses Dumas Anion gap [Moles/Vol] 8.7 mmol/L Normal [facility] Comment on above: Performed By: #### C VDTBH #### [facility] [address] [place] [address] Dr. Ramses Dumas AST [Catalytic activity/Vol] 165 U/L Critically high 15-37 [facility] Comment on above: Performed By: #### C VDTBH #### [facility] [address] [place] [address] Dr. Ramses Dumas Bilirubin [Mass/Vol] 0.4 mg/dL Normal 0.2-1.0 [facility] Comment on above: Performed By: #### C VDTBH #### [facility] [address] [place] [address] Dr. Ramses Dumas Calcium [Mass/Vol] 8.0 mg/dL Critically low 8.5-10.1 Th [facility] Comment on above: Performed By: #### C VDTBH #### [facility] [address] [place] [address] Dr. Ramses Dumas Chloride [Moles/Vol] 108 mmol/L Critically high 98-107 [facility] Comment on above: Performed By: #### C VDTBH #### [facility] [address] [place] [address] Dr. Ramses Dumas CO2 [Moles/Vol] 25.3 mmol/L Normal 21.0-32.0 [facility] Comment on above: Performed By: #### C VDTBH #### [facility] [address] [place] [address] Dr. Ramses Dumas Creatinine [Mass/Vol] 0.70 mg/dL Normal 0.55-1.02 [facility] Comment on above: Performed By: #### C VDTBH #### [facility] [address] [place] [address] Dr. Ramses Dumas EGFR-AF CAMEROONIAN >60 Normal >=60 [facility] Comment on above: Performed By: #### C VDTBH #### [facility] [address] [place] [address] Dr. Ramses Dumas EGFR-NON AF CAMEROONIAN >60 Normal >=60 [facility] Comment on above: Performed By: #### C VDTBH #### [facility] [address] [place] [address] Dr. Ramses Dumas Globulin (S) [Mass/Vol] 3.6 g/dL Normal [facility] Comment on above: Performed By: #### C VDTBH #### [facility] [address] [place] [address] Dr. Ramses Dumas Glucose [Mass/Vol] 160 mg/dL Critically high 74-[address] [facility] Comment on above: Performed By: #### C VDTBH #### [facility] [address] [place] [address] Dr. Ramses Dumas Potassium [Moles/Vol] 4.0 mmol/L Normal 3.5-5.1 [facility] Comment on above: Performed By: #### C VDTBH #### [facility] [address] [place] [address] Dr. Ramses Dumas Protein [Mass/Vol] 6.0 g/dL Critically low 6.4-8.2 [facility] Comment on above: Performed By: #### C VDTBH #### [facility] [address] [place] [address] Dr. Ramses Dumas Sodium [Moles/Vol] 138 mmol/L Normal 136-145 [facility] Comment on above: Performed By: #### C VDTBH #### [facility] [address] [place] [address] Dr. Ramses Dumas Urea nitrogen [Mass/Vol] 6.0 mg/dL Critically low 7.0-18.0 [facility] Comment on above: Performed By: #### C VDTBH #### [facility] [address] [place] [address] Dr. Ramses Dumas Urea nitrogen/Creatinine [Mass ratio] 8.6 mg/mg Normal [facility] Comment on above: Performed By: #### C VDTBH #### [facility] [address] [place] [address] Dr. Ramses Dumas CBC AUTO DIFFon 08-23-2022 BASO # 0.0 103/ul Normal 0.0-0.1 [facility] Comment on above: Performed By: #### U RCX #### [facility] [address] [place] [address] Dr. Ramses Dumas Basophils/100 WBC (Bld) 0.2 % Normal 0.2-2.[address] [facility] Comment on above: Performed By: #### U RCX #### [facility] [address] [place] [address] Dr. Ramses Dumas EO # 0.0 103/ul Normal 0.0-0.[address] [facility] Comment on above: Performed By: #### U RCX #### [facility] [address] [place] [address] Dr. Ramses Dumas Eosinophils/100 WBC (Bld) 0.1 % Critically low 0.9-7.0 [facility] Comment on above: Performed By: #### U RCX #### [facility] [address] [place] [address] Dr. Ramses Dumas Erythrocyte distribution width (RBC) [Ratio] 13.4 % Normal 11.0-15.0 [facility] Comment on above: Performed By: #### U RCX #### [facility] [address] [place] [address] Dr. Ramses Dumas Hematocrit (Bld) [Volume fraction] 34.1 % Critically low 36.0-48.0 [facility] Comment on above: Performed By: #### U RCX #### [facility] [address] [place] [address] Dr. Ramses Dumas Hemoglobin (Bld) [Mass/Vol] 10.9 g/dL Critically low 12.0-16.[address] [facility] Comment on above: Performed By: #### U RCX #### [facility] [address] [place] [address] Dr. Ramses Dumas IG # 0.02 10e3/ul Normal 0.00-0.[address] [facility] Comment on above: Performed By: #### U RCX #### [facility] [address] [address] [address] Ramses Dumas IG % 0.2 % Normal 0.0-0.5 [facility] Comment on above: Performed By: #### U RCX #### [facility] [address] [address] [address] Ramses Dumas LYMPH # 0.7 103/ul Critically low 1.2-3.8 [facility] Comment on above: Performed By: #### U RCX #### [facility] [address] [address] [address] Ramses Dumas Lymphocytes/100 WBC (Bld) 6.9 % Critically low 20.5-60.0 [facility] Comment on above: Performed By: #### U RCX #### [facility] [address] [address] [address] Ramses Dumas MANUAL DIFF REQ NO Normal [facility] Comment on above: Performed By: #### U RCX #### [facility] [address] [address] [address] Ramses Dumas MCH (RBC) [Entitic mass] 26.1 pg Critically low 26.7-34.0 [facility] Comment on above: Performed By: #### U RCX #### [facility] [address] [address] [address] Ramses Dumas MCHC (RBC) [Mass/Vol] 32.0 g/dL Normal 29.9-35.[address] [facility] Comment on above: Performed By: #### U RCX #### [facility] [address] [address] [address] Ramses Dumas MCV (RBC) [Entitic vol] 81.8 fL Normal 81.0-99.[address] [facility] Comment on above: Performed By: #### U RCX #### [facility] [address] [address] [address] Ramses Dumas MONO # 0.6 103/ul Normal 0.3-0.8 [facility] Comment on above: Performed By: #### U RCX #### [facility] [address] [address] [address] Ramses Dumas Monocytes/100 WBC (Bld) 5.9 % Normal 1.7-12.0 [facility] Comment on above: Performed By: #### U RCX #### [facility] [address] [address] [address] Ramses Dumas NEUT # 8.2 103/ul Critically high 1.4-6.5 [facility] Comment on above: Performed By: #### U RCX #### [facility] [address] [place] [address] Dr. Ramses Dumas Neutrophils/100 WBC (Bld) 86.7 % Critically high 43.0-75.0 [facility] Comment on above: Performed By: #### U RCX #### [facility] [address] [place] [address] Dr. Ramses Dumas Platelet mean volume (Bld) [Entitic vol] 9.4 fL Critically low 9.5-13.5 [facility] Comment on above: Performed By: #### U RCX #### [facility] [address] [place] [address] Dr. Ramses Dumas PLT 235 103/ul Normal 150-450 [facility] Comment on above: Performed By: #### U RCX #### [facility] [address] [place] [address] Dr. Ramses Dumas RBC 4.17 106/ul Critically low 4.20-5.40 [facility] Comment on above: Performed By: #### U RCX #### [facility] [address] [place] [address] Dr. Ramses Dumas WBC 9.5 103/ul Normal 4.0-11.0 [facility] Comment on above: Performed By: #### U RCX #### [facility] [address] [place] [address] Dr. Ramses Dumas PROF 14(COMP METB)on 022 Albumin [Mass/Vol] 2.6 g/dL Critically low 3.4-5.0 [facility] Comment on above: Performed By: #### U KJ 24 #### [facility] [address] [address] [address] Ramses Dumas Albumin/Globulin [Mass ratio] 0.8 {ratio} Normal [facility] Comment on above: Performed By: #### U KJ 24 #### [facility] [address] [address] [address] Ramses Dumas ALP [Catalytic activity/Vol] 82 U/L Normal 46-116 [facility] Comment on above: Performed By: #### U KJ 24 #### [facility] [address] [address] [address] Ramses Dumas ALT [Catalytic activity/Vol] 257 U/L Critically high 14-59 [facility] Comment on above: Performed By: #### U KJ 24 #### [facility] [address] [place] [address] Dr. Ramses Dumas Anion gap [Moles/Vol] 10.3 mmol/L Normal [facility] Comment on above: Performed By: #### U KJ 24 #### [facility] [address] [place] [address] Dr. Ramses Dumas AST [Catalytic activity/Vol] 196 U/L Critically high 15-37 [facility] Comment on above: Performed By: #### U KJ 24 #### [facility] [address] [place] [address] Dr. Ramses Dumas Bilirubin [Mass/Vol] 0.5 mg/dL Normal 0.2-1.0 [facility] Comment on above: Performed By: #### U KJ 24 #### [facility] [address] [place] [address] Dr. Ramses Dumas Calcium [Mass/Vol] 7.8 mg/dL Critically low 8.5-10.1 [facility] Comment on above: Performed By: #### U KJ 24 #### [facility] [address] [place] [address] Dr. Ramses Dumas Chloride [Moles/Vol] 104 mmol/L Normal 98-107 [facility] Comment on above: Performed By: #### U KJ 24 #### [facility] [address] [address] [address] Ramses Dumas CO2 [Moles/Vol] 24.4 mmol/L Normal 21.0-32.0 [facility] Comment on above: Performed By: #### U KJ 24 #### [facility] [address] [address] [address] Ramses Dumas Creatinine [Mass/Vol] 1.09 mg/dL Critically high 0.55-1.02 [facility] Comment on above: Performed By: #### U KJ 24 #### [facility] [address] [address] [address] Ramses Dumas EGFR-AF CAMEROONIAN >60 Normal >=60 [facility] Comment on above: Performed By: #### U KJ 24 #### [facility] [address] [address] [address] Ramses Dumas EGFR-NON AF CAMEROONIAN 59 mL/min/1.73m2 Critically low >=60 [facility] Comment on above: Performed By: #### U KJ 24 #### [facility] [address] [address] [address] Ramses Dumas Globulin (S) [Mass/Vol] 3.3 g/dL Normal [facility] Comment on above: Performed By: #### U KJ 24 #### [facility] [address] [address] [address] Ramses Dumas Glucose [Mass/Vol] 143 mg/dL Critically high 74-[address] [facility] Comment on above: Performed By: #### U KJ 24 #### [facility] [address] [address] [address] Ramses Dumas Potassium [Moles/Vol] 3.7 mmol/L Normal 3.5-5.1 [facility] Comment on above: Performed By: #### U KJ 24 #### [facility] [address] [address] [address] Ramses Dumas Protein [Mass/Vol] 5.9 g/dL Critically low 6.4-8.[address] [facility] Comment on above: Performed By: #### U KJ 24 #### [facility] [address] [place] [address] Dr. Ramses Dumas Sodium [Moles/Vol] 135 mmol/L Critically low 136-145 Th [facility] Comment on above: Performed By: #### U KJ 24 #### [facility] [address] [place] [address] Dr. Ramses Dumas Urea nitrogen [Mass/Vol] 10.0 mg/dL Normal 7.0-18.0 [facility] Comment on above: Performed By: #### U KJ 24 #### [facility] [address] [place] [address] Dr. Ramses Dumas Urea nitrogen/Creatinine [Mass ratio] 9.2 mg/mg Normal [facility] Comment on above: Performed By: #### U KJ 24 #### [facility] [address] [place] [address] Dr. Ramses Dumas BLOOD CULTURE ID PANELon A. baumannii Not detected Normal NOT DETECTED [facility] Comment on above: Performed By: #### C VDTBH #### [facility] [address] [place] [address] Dr. Ramses Dumas Bacteriodes fragilis Not detected Normal NOT DETECTED [facility] Comment on above: Performed By: #### C VDTBH #### [facility] [address] [place] [address] Dr. Ramses Dumas BCID CONTROLS PASSED Normal [facility] Comment on above: Performed By: #### C VDTBH #### [facility] [address] [place] [address] Dr. Ramses Dumas BCIDBTHD BLOOD CULTURE BOTTLE INFORMATION Normal [facility] Comment on above: Performed By: #### C VDTBH #### [facility] [address] [place] [address] Dr. Ramses Dumas BCIDHD1 ANTIMICROBIAL RESISTANCE GENES Normal [facility] Comment on above: Performed By: #### C VDTBH #### [facility] [address] [place] [address] Dr. Ramses Dumas BCIDHD2 SEE BELOW [facility] Comment on above: Result Comment: Note : Antimicrobial resitance can occur via multiple mechanisms. A Not Detected result for the [employer] antomicrobial resistance gene assays does not indicate antimicrobial susceptibility. Subculturing is required for species identification and susceptibility testing of isolates. Performed By: #### C VDTBH #### [facility] [address] [place] [address] Dr. Ramses Dumas BCIDHD3 Positive Normal [facility] Comment on above: Performed By: #### C VDTBH #### [facility] [address] [place] [address] Dr. Ramses Dumas BCIDHD4 Negative Normal [facility] Comment on above: Performed By: #### C VDTBH #### [facility] [address] [place] [address] Dr. Ramses Dumas BCIDHD5 YEAST Normal [facility] Comment on above: Performed By: #### C VDTBH #### [facility] [address] [place] [address] Dr. Ramses Dumas Bottle Set: Set [address] [facility] Comment on above: Performed By: #### C VDTBH #### [facility] [address] [place] [address] Dr. Ramses Dumas Bottle: Pediatric Normal [facility] Comment on above: Performed By: #### C VDTBH #### [facility] [address] [place] [address] Dr. Ramses Dumas C. neoformans/gattii Not detected Normal NOT DETECTED [facility] Comment on above: Performed By: #### C VDTBH #### [facility] [address] [place] [address] Dr. Ramses Dumas Kim albicans Not detected Normal NOT DETECTED [facility] Comment on above: Performed By: #### C VDTBH #### [facility] [address] [place] [address] Dr. Ramses Dumas Kim auris Not detected Normal NOT DETECTED [facility] Comment on above: Performed By: #### C VDTBH #### [facility] [address] [place] [address] Dr. Ramses Dumas Kim glabrata Not detected Normal NOT DETECTED [facility] Comment on above: Performed By: #### C VDTBH #### [facility] [address] [address] [address] Ramses Dumas Kim Krusei Not detected Normal NOT DETECTED [facility] Comment on above: Performed By: #### C VDTBH #### [facility] [address] [place] [address] Dr. Ramses Dumas Kim Parapsilosis Not detected Normal NOT DETECTED [facility] Comment on above: Performed By: #### C VDTBH #### [facility] [address] [address] [address] Ramses Dumas Kim Tropicalis Not detected Normal NOT DETECTED [facility] Comment on above: Performed By: #### C VDTBH #### [facility] [address] [place] [address] Dr. Ramses Dumas CTX-M Resistant Gene Not Applicable Normal NOT DETECTE D [facility] Comment on above: Performed By: #### C VDTBH #### [facility] [address] [place] [address] Dr. Ramses Dumas E. Cloacae complex Not detected Normal NOT DETECTED [facility] Comment on above: Performed By: #### C VDTBH #### [facility] [address] [place] [address] Dr. Ramses Dumas E. faecalis Not detected Normal NOT DETECTED [facility] Comment on above: Performed By: #### C VDTBH #### [facility] [address] [place] [address] Dr. Ramses Dumas E. faecium Not detected Normal NOT DETECTED [facility] Comment on above: Performed By: #### C VDTBH #### [facility] [address] [place] [address] Dr. Ramses Dumas Enterobacteriaceae Not detected Normal NOT DETECTED [facility] Comment on above: Performed By: #### C VDTBH #### [facility] [address] [place] [address] Dr. Ramses Dumas Escherichia coli Not detected Normal NOT DETECTED [facility] Comment on above: Performed By: #### C VDTBH #### [facility] [address] [place] [address] Dr. Ramses Dumas H. influenzae Not detected Normal NOT DETECTED [facility] Comment on above: Performed By: #### C VDTBH #### [facility] [address] [place] [address] Dr. Ramses Dumas IMP Resistant Gene Not Applicable Normal NOT DETECTED [facility] Comment on above: Performed By: #### C VDTBH #### [facility] [address] [place] [address] Dr. Ramses Dumas K. oxytoca Not detected Normal NOT DETECTED [facility] Comment on above: Performed By: #### C VDTBH #### [facility] [address] [place] [address] Dr. Ramses Dumas K. pneumoniae Not detected Normal NOT DETECTED [facility] Comment on above: Performed By: #### C VDTBH #### [facility] [address] [place] [address] Dr. Ramses Dumas Klebsiella aerogenes Not detected Normal NOT DETECTED [facility] Comment on above: Performed By: #### C VDTBH #### [facility] [address] [place] [address] Dr. Ramses Dumas KPC Resistant Gene Not detected Normal NOT DETECTED [facility] Comment on above: Performed By: #### C VDTBH #### [facility] [address] [place] [address] Dr. Ramses Dumas List. monocytogenes Not detected Normal NOT DETECTED [facility] Comment on above: Performed By: #### C VDTBH #### [facility] [address] [place] [address] Dr. Ramses Dumas Mcr-1 Resistant Gene Not Applicable Normal NOT DETECTE D [facility] Comment on above: Performed By: #### C VDTBH #### [facility] [address] [place] [address] Dr. Ramses Dumas mecA/C Not Applicable Normal NOT DETECTED [facility] Comment on above: Performed By: #### C VDTBH #### [facility] [address] [place] [address] Dr. Ramses Dumas mecA/C MREJ Not Applicable Normal NOT DETECTED [facility] Comment on above: Performed By: #### C VDTBH #### [facility] [address] [place] [address] Dr. Ramses Dumas N. meningitidis Not detected Normal NOT DETECTED [facility] Comment on above: Performed By: #### C VDTBH #### [facility] [address] [place] [address] Dr. Ramses Dumas NDM Resistant Gene Not Applicable Normal NOT DETECTED [facility] Comment on above: Performed By: #### C VDTBH #### [facility] [address] [place] [address] Dr. Ramses Dumas Oxa-48-like Not Applicable Normal NOT DETECTED [facility] Comment on above: Performed By: #### C VDTBH #### [facility] [address] [place] [address] Dr. Ramses Dumas Proteus Not detected Normal NOT DETECTED [facility] Comment on above: Performed By: #### C VDTBH #### [facility] [address] [place] [address] Dr. Ramses Dumas Pseud. aeruginosa Not detected Normal NOT DETECTED [facility] Comment on above: Performed By: #### C VDTBH #### [facility] [address] [place] [address] Dr. Ramses Dumas S. maltophilia Not detected Normal NOT DETECTED [facility] Comment on above: Performed By: #### C VDTBH #### [facility] [address] [place] [address] Dr. Ramses Dumas Salmonella Not detected Normal NOT DETECTED [facility] Comment on above: Performed By: #### C VDTBH #### [facility] [address] [place] [address] Dr. Ramses Dumas Seratia marcescens Not detected Normal NOT DETECTED [facility] Comment on above: Performed By: #### C VDTBH #### [facility] [address] [place] [address] Dr. Ramses Dumas Site: unknown/not given Normal [facility] Comment on above: Performed By: #### C VDTBH #### [facility] [address] [place] [address] Dr. Ramses Dumas Staph. aureus Not detected Normal NOT DETECTED [facility] Comment on above: Performed By: #### C VDTBH #### [facility] [address] [place] [address] Dr. Ramses Dumas Staph. epidermidis Not detected Normal NOT DETECTED [facility] Comment on above: Performed By: #### C VDTBH #### [facility] [address] [place] [address] Dr. Ramses Dumas Stapphillip. lugdunensis Not detected Normal NOT DETECTED [facility] Comment on above: Performed By: #### C VDTBH #### [facility] [address] [place] [address] Dr. Ramses Dumas Staphylococcus Not detected Normal NOT DETECTED [facility] Comment on above: Performed By: #### C VDTBH #### [facility] [address] [place] [address] Dr. Ramses Dumas Strep. agalactiae Detected Critically abnormal NOT DETECTED [facility] Comment on above: Performed By: #### C VDTBH #### [facility] [address] [place] [address] Dr. Ramses Dumas Strep. pneumoniae Not detected Normal NOT DETECTED [facility] Comment on above: Performed By: #### C VDTBH #### [facility] [address] [place] [address] Dr. Ramses Dumas Strep. pyogenes Not detected Normal NOT DETECTED [facility] Comment on above: Performed By: #### C VDTBH #### [facility] [address] [place] [address] Dr. Ramses Dumas Streptococcus Detected Critically abnormal NOT DETECTED [facility] Comment on above: Performed By: #### C VDTBH #### [facility] [address] [place] [address] Dr. Ramses Dumas Efrain/B Resist. Gene Not detected Normal NOT DETECTED T [facility] Comment on above: Performed By: #### C VDTBH #### [facility] [address] [place] [address] Dr. Ramses Dumas VIM Resistant Gene Not Applicable Normal NOT DETECTED [facility] Comment on above: Performed By: #### C VDTBH #### [facility] [address] [place] [address] Dr. Ramses Dumas CBC AUTO DIFFon 08-22-2022 BASO # 0.1 103/ul Normal 0.0-0.1 [facility] Comment on above: Performed By: #### U KJ 24 #### [facility] [address] [place] [address] Dr. Ramses Dumas Basophils/100 WBC (Bld) 0.7 % Normal 0.2-2.0 [facility] Comment on above: Performed By: #### U KJ 24 #### [facility] [address] [place] [address] Dr. Ramses Dumas EO # 0.1 103/ul Normal 0.0-0.7 [facility] Comment on above: Performed By: #### U KJ 24 #### [facility] [address] [place] [address] Dr. Ramses Dumas Eosinophils/100 WBC (Bld) 1.7 % Normal 0.9-7.0 [facility] Comment on above: Performed By: #### U KJ 24 #### [facility] [address] [place] [address] Dr. Ramses Dumas Erythrocyte distribution width (RBC) [Ratio] 13.2 % Normal 11.0-15.0 [facility] Comment on above: Performed By: #### U KJ 24 #### [facility] [address] [place] [address] Dr. Ramses Dumas Hematocrit (Bld) [Volume fraction] 39.8 % Normal 36.0-48.0 [facility] Comment on above: Performed By: #### U KJ 24 #### [facility] [address] [place] [address] Dr. Ramses Dumas Hemoglobin (Bld) [Mass/Vol] 12.9 g/dL Normal 12.0-16.0 [facility] Comment on above: Performed By: #### U KJ 24 #### [facility] [address] [place] [address] Dr. Ramses Dumas IG # 0.02 10e3/ul Normal 0.00-0.03 [facility] Comment on above: Performed By: #### U KJ 24 #### [facility] [address] [place] [address] Dr. Ramses Dumas IG % 0.2 % Normal 0.0-0.5 [facility] Comment on above: Performed By: #### U KJ 24 #### [facility] [address] [place] [address] Dr. Ramses Dumas LYMPH # 3.2 103/ul Normal 1.2-3.8 [facility] Comment on above: Performed By: #### U KJ 24 #### [facility] [address] [place] [address] Dr. Ramses Dumas Lymphocytes/100 WBC (Bld) 40.0 % Normal 20.5-60.0 [facility] Comment on above: Performed By: #### U KJ 24 #### [facility] [address] [place] [address] Dr. Ramess Dumas MANUAL DIFF REQ NO Normal [facility] Comment on above: Performed By: #### U KJ 24 #### [facility] [address] [place] [address] Dr. Ramses Dumas MCH (RBC) [Entitic mass] 26.6 pg Critically low 26.7-34.0 [facility] Comment on above: Performed By: #### U KJ 24 #### [facility] [address] [place] [address] Dr. Ramses Dumas MCHC (RBC) [Mass/Vol] 32.4 g/dL Normal 29.9-35.2 [facility] Comment on above: Performed By: #### U KJ 24 #### [facility] [address] [place] [address] Dr. Ramses Dmuas MCV (RBC) [Entitic vol] 82.1 fL Normal 81.0-99.0 [facility] Comment on above: Performed By: #### U KJ 24 #### [facility] [address] [place] [address] Dr. Ramses Dumas MONO # 0.6 103/ul Normal 0.3-0.8 [facility] Comment on above: Performed By: #### U KJ 24 #### [facility] [address] [place] [address] Dr. Ramses Dumas Monocytes/100 WBC (Bld) 7.5 % Normal 1.7-12.0 [facility] Comment on above: Performed By: #### U KJ 24 #### [facility] [address] [place] [address] Dr. Ramses Dumas NEUT # 4.0 103/ul Normal 1.4-6.5 [facility] Comment on above: Performed By: #### U KJ 24 #### [facility] [address] [place] [address] Dr. Ramses Dumas Neutrophils/100 WBC (Bld) 49.9 % Normal 43.0-75.0 [facility] Comment on above: Performed By: #### U KJ 24 #### [facility] [address] [place] [address] Dr. Ramses Dumas Platelet mean volume (Bld) [Entitic vol] 9.3 fL Critically low 9.5-13.[address] [facility] Comment on above: Performed By: #### U KJ 24 #### [facility] [address] [place] [address] Dr. Ramses Dumas PLT 354 103/ul Normal 150-[address] [facility] Comment on above: Performed By: #### U KJ 24 #### [facility] [address] [place] [address] Dr. Ramses Dumas RBC 4.85 106/ul Normal 4.20-5.[address] [facility] Comment on above: Performed By: #### U KJ 24 #### [facility] [address] [place] [address] Dr. Ramses Dumas WBC 8.1 103/ul Normal 4.0-11.[address] [facility] Comment on above: Performed By: #### U KJ 24 #### [facility] [address] [address] [address] ABD/PELVIS WO CONon [...] KESHIA IRIZARRY Date: 2022-08-22 07:[address] [facility] Covid-19 PCR (CVDTB)on SARS-CoV-2 (COVID-19) RNA FRANCESCA+probe Ql (Unsp spec) Not detected Normal NOT DETECTED [facility] Comment on above: Result Comment: When [...] for this test is supported by the [employer] and [employer]'s declaration that [...] used). Performed By: #### C MP #### [facility] [address] [place] [address] Dr. Ramses Dumas ER URINE PROFILEon 2 Bilirubin Ql (U) Negative Normal NEGATIVE [facility] Comment on above: Performed By: #### U RCX #### [facility] [address] [place] [address] Dr. Ramses Dumas Clarity (U) CLEAR Normal CLEAR [facility] Comment on above: Performed By: #### U RCX #### [facility] [address] [place] [address] Dr. Ramses Dumas Color (U) LT. YELLOW Normal YELLOW [facility] Comment on above: Performed By: #### U RCX #### [facility] [address] [place] [address] Dr. Ramses DELEON A micrscopic examination will be performed if indicated. Normal [facility] Comment on above: Performed By: #### U RCX #### [facility] [address] [place] [address] Dr. Ramses Dumas Glucose Ql (U) Negative Normal NEGATIVE [facility] Comment on above: Performed By: #### U RCX #### [facility] [address] [place] [address] Dr. Ramses Dumas Hemoglobin Ql (U) SMALL Abnormal NEGATIVE [facility] Comment on above: Performed By: #### U RCX #### [facility] [address] [place] [address] Dr. Ramses Dumas Ketones Ql (U) Negative Normal NEGATIVE [facility] Comment on above: Performed By: #### U RCX #### [facility] [address] [place] [address] Dr. Ramses Dumas LEUKOCYTES SMALL Abnormal NEGATIVE [facility] Comment on above: Performed By: #### U RCX #### [facility] [address] [place] [address] Dr. Ramses Dumas Nitrite Ql (U) Negative Normal NEGATIVE [facility] Comment on above: Performed By: #### U RCX #### [facility] [address] [place] [address] Dr. Ramses Dumas pH (U) 7.0 [pH] Normal 5-9 [facility] Comment on above: Performed By: #### U RCX #### [facility] [address] [place] [address] Dr. Ramses Dumas Protein (U) [Mass/Vol] 30 mg/dL Abnormal NEGATIVE/ TRACE [facility] Comment on above: Performed By: #### U RCX #### [facility] [address] [place] [address] Dr. Ramses Dumas SPEC GRAVITY 1.020 Normal 1.005-<=1.02 5 [facility] Comment on above: Performed By: #### U RCX #### [facility] [address] [place] [address] Dr. Ramses Dumas UR MICRO IND INDICATED Normal [facility] Comment on above: Performed By: #### U RCX #### [facility] [address] [place] [address] Dr. Ramses Dumas Urobilinogen Qn (U) 0.2 {Lucero'U}/dL Normal 0.2 - 1. 0 [facility] Comment on above: Performed By: #### U RCX #### [facility] [address] [place] [address] Dr. Ramses Dumas LACTATE/LACTIC ACIDon 2021 Lactate [Moles/Vol] 2.3 mmol/L Critically high 0.4-1.9 [facility] Comment on above: Performed By: #### U RCX #### [facility] [address] [place] [address] Dr. Ramses Dumas URon 08-22-2022 , QUAL Negative Normal NEGATIVE [facility] Comment on above: Performed By: #### U RCX #### [facility] [address] [address] [address] Ramses Dumas PROF 14(COMP METB)on 022 Albumin [Mass/Vol] 3.5 g/dL Normal 3.4-5.0 [facility] Comment on above: Performed By: #### U RCX #### [facility] [address] [place] [address] Dr. Ramses Dumas Albumin/Globulin [Mass ratio] 0.9 {ratio} Normal [facility] Comment on above: Performed By: #### U RCX #### [facility] [address] [place] [address] Dr. Ramses Dumas ALP [Catalytic activity/Vol] 92 U/L Normal 46-116 [facility] Comment on above: Performed By: #### U RCX #### [facility] [address] [place] [address] Dr. Ramses Dumas ALT [Catalytic activity/Vol] 139 U/L Critically high 14-59 [facility] Comment on above: Performed By: #### U RCX #### [facility] [address] [place] [address] Dr. Ramses Dumas Anion gap [Moles/Vol] 10.2 mmol/L Normal [facility] Comment on above: Performed By: #### U RCX #### [facility] [address] [place] [address] Dr. Ramses Dumas AST [Catalytic activity/Vol] 112 U/L Critically high 15-37 [facility] Comment on above: Performed By: #### U RCX #### [facility] [address] [place] [address] Dr. Ramses Dumas Bilirubin [Mass/Vol] 0.2 mg/dL Normal 0.2-1.0 [facility] Comment on above: Performed By: #### U RCX #### [facility] [address] [place] [address] Dr. Ramses Dumas Calcium [Mass/Vol] 8.8 mg/dL Normal 8.5-10.1 [facility] Comment on above: Performed By: #### U RCX #### [facility] [address] [address] [address] Ramses Dumas Chloride [Moles/Vol] 105 mmol/L Normal 98-107 [facility] Comment on above: Performed By: #### U RCX #### [facility] [address] [address] [address] Ramses Dumas CO2 [Moles/Vol] 26.3 mmol/L Normal 21.0-32.0 [facility] Comment on above: Performed By: #### U RCX #### [facility] [address] [place] [address] Dr. Ramses Dumas Creatinine [Mass/Vol] 0.95 mg/dL Normal 0.55-1.02 [facility] Comment on above: Performed By: #### U RCX #### [facility] [address] [place] [address] Dr. Ramses Dumas EGFR-AF CAMEROONIAN >60 Normal >=60 [facility] Comment on above: Performed By: #### U RCX #### [facility] [address] [place] [address] Dr. Ramses Dumas EGFR-NON AF CAMEROONIAN >60 Normal >=60 [facility] Comment on above: Performed By: #### U RCX #### [facility] [address] [place] [address] Dr. Ramses Dumas Globulin (S) [Mass/Vol] 3.9 g/dL Normal [facility] Comment on above: Performed By: #### U RCX #### [facility] [address] [place] [address] Dr. Ramses Dumas Glucose [Mass/Vol] 137 mg/dL Critically high 74-106 [facility] Comment on above: Performed By: #### U RCX #### [facility] [address] [place] [address] Dr. Ramses Dumas Potassium [Moles/Vol] 3.5 mmol/L Normal 3.5-5.1 [facility] Comment on above: Performed By: #### U RCX #### [facility] [address] [place] [address] Dr. Ramses Dumas Protein [Mass/Vol] 7.4 g/dL Normal 6.4-8.2 [facility] Comment on above: Performed By: #### U RCX #### [facility] [address] [place] [address] Dr. Ramses Dumas Sodium [Moles/Vol] 138 mmol/L Normal 136-145 [facility] Comment on above: Performed By: #### U RCX #### [facility] [address] [place] [address] Dr. Ramses Dumas Urea nitrogen [Mass/Vol] 11.0 mg/dL Normal 7.0-18.0 [facility] Comment on above: Performed By: #### U RCX #### [facility] [address] [place] [address] Dr. Ramses Dumas Urea nitrogen/Creatinine [Mass ratio] 11.6 mg/mg Normal [facility] Comment on above: Performed By: #### U RCX #### [facility] [address] [place] [address] Dr. Ramses Dumas URINE MICROSCOPIC ONLYon BACTERIA LARGE Abnormal NONE SEEN [facility] Comment on above: Performed By: #### U RCX #### [facility] [address] [place] [address] Dr. Ramses Dumas Bacteria identified Cx Nom (U) CX ALREADY ORDERED Normal [facility] Comment on above: Performed By: #### U RCX #### [facility] [address] [place] [address] Dr. Ramses Dumas CAST NONE SEEN Normal NONE SEEN [facility] Comment on above: Performed By: #### U RCX #### [facility] [address] [place] [address] Dr. Ramses Dumas Crystals LM Nom (Urine sed) NONE SEEN Normal NONE SEEN [facility] Comment on above: Performed By: #### U RCX #### [facility] [address] [place] [address] Dr. Ramses Dumas Epithelial cells LM Ql (Urine sed) MANY Abnormal NONE SEEN /RARE [facility] Comment on above: Performed By: #### U RCX #### [facility] [address] [place] [address] Dr. Ramses Dumas MUCOUS NONE SEEN Normal NONE SEEN [facility] Comment on above: Performed By: #### U RCX #### [facility] [address] [place] [address] Dr. Ramses Dumas RBC 5-10 Abnormal 0-2 [facility] Comment on above: Performed By: #### U RCX #### [facility] [address] [place] [address] Dr. Ramses Dumas WBC 50-75 Abnormal NONE SEEN [facility] Comment on above: Performed By: #### U RCX #### [facility] [address] [place] [address] Dr. Ramses Dumas CULTURE URINEon 08-15-2022 CULTURE [...] F Tetracycline >=16 R F Normal [facility] Comment on above: Performed By: #### U RCX #### [facility] [address] [place] [address] Dr. Ramses Dumas ACETAMINOPHENon 08-13-2022 Acetaminophen [Mass/Vol] ug/mL Critically low 10.0-30.0 [facility] Comment on above: Performed By: #### U RCX #### [facility] [address] [place] [address] Dr. Ramses Dumas CBC AUTO DIFFon 08-13-2022 BASO # 0.1 103/ul Normal 0.0-0.1 [facility] Comment on above: Performed By: #### C VDTBH #### [facility] [address] [place] [address] Dr. Ramses Dumas Basophils/100 WBC (Bld) 0.8 % Normal 0.2-2.0 [facility] Comment on above: Performed By: #### C VDTBH #### [facility] [address] [place] [address] Dr. Ramses Dumas EO # 0.1 103/ul Normal 0.0-0.7 [facility] Comment on above: Performed By: #### C VDTBH #### [facility] [address] [place] [address] Dr. Ramses Dumas Eosinophils/100 WBC (Bld) 1.6 % Normal 0.9-7.0 [facility] Comment on above: Performed By: #### C VDTBH #### [facility] [address] [place] [address] Dr. Ramses Dumas Erythrocyte distribution width (RBC) [Ratio] 13.3 % Normal 11.0-15.0 [facility] Comment on above: Performed By: #### C VDTBH #### [facility] [address] [place] [address] Dr. Ramses Dumas Hematocrit (Bld) [Volume fraction] 40.6 % Normal 36.0-48.0 [facility] Comment on above: Performed By: #### C VDTBH #### [facility] [address] [place] [address] Dr. Ramses Dumas Hemoglobin (Bld) [Mass/Vol] 13.2 g/dL Normal 12.0-16.0 [facility] Comment on above: Performed By: #### C VDTBH #### [facility] [address] [place] [address] Dr. Ramses Dumas IG # 0.01 10e3/ul Normal 0.00-0.03 [facility] Comment on above: Performed By: #### C VDTBH #### [facility] [address] [place] [address] Dr. Ramses Dumas IG % 0.2 % Normal 0.0-0.5 [facility] Comment on above: Performed By: #### C VDTBH #### [facility] [address] [place] [address] Dr. Ramses Dumas LYMPH # 2.4 103/ul Normal 1.2-3.8 [facility] Comment on above: Performed By: #### C VDTBH #### [facility] [address] [place] [address] Dr. Ramses Dumas Lymphocytes/100 WBC (Bld) 37.7 % Normal 20.5-60.0 [facility] Comment on above: Performed By: #### C VDTBH #### [facility] [address] [place] [address] Dr. Ramses Dumas MANUAL DIFF REQ NO Normal [facility] Comment on above: Performed By: #### C VDTBH #### [facility] [address] [place] [address] Dr. Ramses Dumas MCH (RBC) [Entitic mass] 26.7 pg Normal 26.7-34.0 [facility] Comment on above: Performed By: #### C VDTBH #### [facility] [address] [place] [address] Dr. Ramses Dumas MCHC (RBC) [Mass/Vol] 32.5 g/dL Normal 29.9-35.2 [facility] Comment on above: Performed By: #### C VDTBH #### [facility] [address] [place] [address] Dr. Ramses Dumas MCV (RBC) [Entitic vol] 82.0 fL Normal 81.0-99.0 [facility] Comment on above: Performed By: #### C VDTBH #### [facility] [address] [place] [address] Dr. Ramses Dumas MONO # 0.6 103/ul Normal 0.3-0.8 [facility] Comment on above: Performed By: #### C VDTBH #### [facility] [address] [place] [address] Dr. Ramses Dumas Monocytes/100 WBC (Bld) 8.6 % Normal 1.7-12.0 [facility] Comment on above: Performed By: #### C VDTBH #### [facility] [address] [place] [address] Dr. Ramses Dumas NEUT # 3.3 103/ul Normal 1.4-6.5 [facility] Comment on above: Performed By: #### C VDTBH #### [facility] [address] [place] [address] Dr. Ramses Dumas Neutrophils/100 WBC (Bld) 51.1 % Normal 43.0-75.0 [facility] Comment on above: Performed By: #### C VDTBH #### [facility] [address] [place] [address] Dr. Ramses Dumas Platelet mean volume (Bld) [Entitic vol] 8.7 fL Critically low 9.5-13.5 [facility] Comment on above: Performed By: #### C VDTBH #### [facility] [address] [place] [address] Dr. Ramses Dumas PLT 409 103/ul Normal 150-[address] [facility] Comment on above: Performed By: #### C VDTBH #### [facility] [address] [place] [address] Dr. Ramses Dumas RBC 4.95 106/ul Normal 4.20-5.[address] [facility] Comment on above: Performed By: #### C VDTBH #### [facility] [address] [place] [address] Dr. Ramses Dumas WBC 6.4 103/ul Normal 4.0-11.[address] [facility] Comment on above: Performed By: #### C VDTBH #### [facility] [address] [place] [address] Dr. Ramses Dumas Covid-19 PCR ([facility])on 07-20 SARS-CoV-2 (COVID-19) RNA FRANCESCA+probe Ql (Unsp spec) Not detected Normal NOT DETECTED [facility] Comment on above: Result Comment: When [...] for this test is supported by the [place] of Health and Human Service's declaration that [...] used). Performed By: #### C VDTB #### [facility] [address] [place] [address] Dr. Ramses Dumas DRUG SCREEN RAPID (URINE)on 08-13-2022 AMP Negative Normal NEGATIVE [facility] Comment on above: Performed By: #### C BC #### [facility] [address] [place] [address] Dr. Ramses Dumas BAR Negative Normal NEGATIVE [facility] Comment on above: Performed By: #### C BC #### [facility] [address] [place] [address] Dr. Ramses Dumas BUP Negative Normal NEGATIVE [facility] Comment on above: Performed By: #### C BC #### [facility] [address] [place] [address] Dr. Ramses Dumas BZO Negative Normal NEGATIVE [facility] Comment on above: Performed By: #### C BC #### [facility] [address] [place] [address] Dr. Ramses Dumas ODILIA Negative Normal NEGATIVE [facility] Comment on above: Performed By: #### C BC #### [facility] [address] [place] [address] Dr. Ramses Dumas CUT-OFFS SEE BELOW Normal [facility] Comment on above: Result Comment: AMP [...] ng/mL Performed By: #### C BC #### [facility] [address] [place] [address] Dr. Ramses Dumas DRUG CUT HEADER DRUG CLASS TEST SYSTEM CUT-OFF CONCENTRATIONS ARE FOLLOWS: Normal [facility] Comment on above: Performed By: #### C BC #### [facility] [address] [place] [address] Dr. Ramses Dumas mAMP Negative Normal NEGATIVE [facility] Comment on above: Performed By: #### C BC #### [facility] [address] [place] [address] Dr. Ramses Dumas MTD Negative Normal NEGATIVE [facility] Comment on above: Performed By: #### C BC #### [facility] [address] [place] [address] Dr. Ramses Dumas OPI Negative Normal NEGATIVE [facility] Comment on above: Performed By: #### C BC #### [facility] [address] [place] [address] Dr. Ramses Dumas OXY Negative Normal NEGATIVE [facility] Comment on above: Performed By: #### C BC #### [facility] [address] [place] [address] Dr. Ramses Dumas PCP Negative Normal NEGATIVE [facility] Comment on above: Performed By: #### C BC #### [facility] [address] [place] [address] Dr. Ramses Dumas PPX Negative Normal NEGATIVE [facility] Comment on above: Performed By: #### C BC #### [facility] [address] [place] [address] Dr. Ramses Dumas TCA Negative Normal NEGATIVE [facility] Comment on above: Performed By: #### C BC #### [facility] [address] [address] [address] Ramses Dumas THC Negative Normal NEGATIVE [facility] Comment on above: Performed By: #### C BC #### [facility] [address] [place] [address] Dr. Ramses Dumas ER URINE PROFILEon 2 Bilirubin Ql (U) Negative Normal NEGATIVE [facility] Comment on above: Performed By: #### C BC #### [facility] [address] [address] [address] Ramses Dumas Clarity (U) CLEAR Normal CLEAR [facility] Comment on above: Performed By: #### C BC #### [facility] [address] [place] [address] Dr. Ramses Dumas Color (U) LT. YELLOW Normal YELLOW [facility] Comment on above: Performed By: #### C BC #### [facility] [address] [place] [address] Dr. Ramses Dumas ERUCARLOS ENRIQUE A micrscopic examination will be performed if indicated. Normal [facility] Comment on above: Performed By: #### C BC #### [facility] [address] [place] [address] Dr. Ramses Dumas Glucose Ql (U) Negative Normal NEGATIVE [facility] Comment on above: Performed By: #### C BC #### [facility] [address] [address] [address] Ramses Dumas Hemoglobin Ql (U) LARGE Abnormal NEGATIVE [facility] Comment on above: Performed By: #### C BC #### [facility] [address] [address] [address] Ramses Dumas Ketones Ql (U) Negative Normal NEGATIVE [facility] Comment on above: Performed By: #### C BC #### [facility] [address] [place] [address] Dr. Ramses Dumas LEUKOCYTES LARGE Abnormal NEGATIVE [facility] Comment on above: Performed By: #### C BC #### [facility] [address] [place] [address] Dr. Ramses Dumas Nitrite Ql (U) Positive Abnormal NEGATIVE [facility] Comment on above: Performed By: #### C BC #### [facility] [address] [place] [address] Dr. Ramses Dumas pH (U) 6.0 [pH] Normal 5-9 [facility] Comment on above: Performed By: #### C BC #### [facility] [address] [place] [address] Dr. Ramses Dumas Protein (U) [Mass/Vol] 30 mg/dL Abnormal NEGATIVE/ TRACE [facility] Comment on above: Performed By: #### C BC #### [facility] [address] [place] [address] Dr. Ramses Dumas SPEC GRAVITY >=1.030 Abnormal 1.005-<=1.02 5 [facility] Comment on above: Performed By: #### C BC #### [facility] [address] [place] [address] Dr. Ramses Dumas UR MICRO IND INDICATED Normal [facility] Comment on above: Performed By: #### C BC #### [facility] [address] [place] [address] Dr. Ramses Dumas Urobilinogen Qn (U) 0.2 {Lucero'U}/dL Normal 0.2 - 1. 0 [facility] Comment on above: Performed By: #### C BC #### [facility] [address] [place] [address] Dr. Ramses Dumas ETHANOL (BLD ALC)on 08-13-20 ALC NOTE NOTE: 80 mg/dl is th e legal limit for a blood alcohol level Normal [facility] Comment on above: Performed By: #### B LDCX2 #### [facility] [address] [place] [address] Dr. Ramses Dumas Ethanol [Mass/Vol] mg/dL Normal [facility] Comment on above: Performed By: #### B LDCX2 #### [facility] [address] [place] [address] Dr. Ramses Dumas URon 08-13-2022 , QUAL Negative Normal NEGATIVE [facility] Comment on above: Performed By: #### C BC #### [facility] [address] [place] [address] Dr. Ramses Dumas PROF 14(COMP METB)on 022 Albumin [Mass/Vol] 3.8 g/dL Normal 3.4-5.0 [facility] Comment on above: Performed By: #### U RCX #### [facility] [address] [place] [address] Dr. Ramses Dumas Albumin/Globulin [Mass ratio] 0.9 {ratio} Normal [facility] Comment on above: Performed By: #### U RCX #### [facility] [address] [place] [address] Dr. Ramses Dumas ALP [Catalytic activity/Vol] 82 U/L Normal 46-116 [facility] Comment on above: Performed By: #### U RCX #### [facility] [address] [place] [address] Dr. Ramses Dumas ALT [Catalytic activity/Vol] 41 U/L Normal 14-59 [facility] Comment on above: Performed By: #### U RCX #### [facility] [address] [place] [address] Dr. Ramses Dumas Anion gap [Moles/Vol] 9.3 mmol/L Normal [facility] Comment on above: Performed By: #### U RCX #### [facility] [address] [place] [address] Dr. Ramses Dumas AST [Catalytic activity/Vol] 21 U/L Normal 15-37 [facility] Comment on above: Performed By: #### U RCX #### [facility] [address] [place] [address] Dr. Ramses Dumas Bilirubin [Mass/Vol] 0.3 mg/dL Normal 0.2-1.0 [facility] Comment on above: Performed By: #### U RCX #### [facility] [address] [place] [address] Dr. Ramses Dumas Calcium [Mass/Vol] 8.9 mg/dL Normal 8.5-10.1 [facility] Comment on above: Performed By: #### U RCX #### [facility] [address] [place] [address] Dr. Ramses Dumas Chloride [Moles/Vol] 105 mmol/L Normal 98-[address] [facility] Comment on above: Performed By: #### U RCX #### [facility] [address] [address] [address] Ramses Dumas CO2 [Moles/Vol] 28.5 mmol/L Normal 21.0-32.0 [facility] Comment on above: Performed By: #### U RCX #### [facility] [address] [place] [address] Dr. Ramses Dumas Creatinine [Mass/Vol] 0.81 mg/dL Normal 0.55-1.02 [facility] Comment on above: Performed By: #### U RCX #### [facility] [address] [place] [address] Dr. Ramses Dumas EGFR-AF CAMEROONIAN >60 Normal >=60 [facility] Comment on above: Performed By: #### U RCX #### [facility] [address] [place] [address] Dr. Ramses Dumas EGFR-NON AF CAMEROONIAN >60 Normal >=60 [facility] Comment on above: Performed By: #### U RCX #### [facility] [address] [place] [address] Dr. Ramses Dumas Globulin (S) [Mass/Vol] 4.1 g/dL Normal [facility] Comment on above: Performed By: #### U RCX #### [facility] [address] [address] [address] Ramses Dumas Glucose [Mass/Vol] 100 mg/dL Normal 74-106 [facility] Comment on above: Performed By: #### U RCX #### [facility] [address] [place] [address] Dr. Ramses Dumas Potassium [Moles/Vol] 3.8 mmol/L Normal 3.5-5.[address] [facility] Comment on above: Performed By: #### U RCX #### [facility] [address] [address] [address] Ramses Dumas Protein [Mass/Vol] 7.9 g/dL Normal 6.4-8.2 [facility] Comment on above: Performed By: #### U RCX #### [facility] [address] [address] [address] Ramses Dumas Sodium [Moles/Vol] 139 mmol/L Normal 136-145 [facility] Comment on above: Performed By: #### U RCX #### [facility] [address] [address] [address] Ramses Dumas Urea nitrogen [Mass/Vol] 10.0 mg/dL Normal 7.0-18.0 [facility] Comment on above: Performed By: #### U RCX #### [facility] [address] [address] [address] Ramses Dumas Urea nitrogen/Creatinine [Mass ratio] 12.3 mg/mg Normal [facility] Comment on above: Performed By: #### U RCX #### [facility] [address] [address] [address] Ramses Dumas SALICYLATEon 08-13-2022 SALICYLATE <2.8 Normal <=19.9 [facility] Comment on above: Performed By: #### U RCX #### [facility] [address] [address] [address] Ramses Dumas URINE MICROSCOPIC ONLYon BACTERIA LARGE Abnormal NONE SEEN [facility] Comment on above: Performed By: #### C BC #### [facility] [address] [address] [address] Ramses Dumas Bacteria identified Cx Nom (U) INDICATED Normal [facility] Comment on above: Performed By: #### C BC #### [facility] [address] [address] [address] Ramses Dumas CA OX CRYSTALS RARE Normal [facility] Comment on above: Performed By: #### C BC #### [facility] [address] [place] [address] Dr. Ramses Dumas CAST NONE SEEN Normal NONE SEEN [facility] Comment on above: Performed By: #### C BC #### [facility] [address] [place] [address] Dr. Ramses Dumas Crystals LM Nom (Urine sed) SEEN Abnormal NONE SEEN [facility] Comment on above: Performed By: #### C BC #### [facility] [address] [place] [address] Dr. Ramses Dumas Epithelial cells LM Ql (Urine sed) MODERATE Abnormal NONE SEEN /RARE [facility] Comment on above: Performed By: #### C BC #### [facility] [address] [place] [address] Dr. Ramses Dumas MUCOUS NONE SEEN Normal NONE SEEN [facility] Comment on above: Performed By: #### C BC #### [facility] [address] [place] [address] Dr. Ramses Dumas RBC 10-20 Abnormal 0-2 [facility] Comment on above: Performed By: #### C BC #### [facility] [address] [place] [address] Dr. Ramses Dumas WBC 20-50 Abnormal NONE SEEN [facility] Comment on above: Performed By: #### C BC #### [facility] [address] [place] [address] Dr. Ramses Dumas Pap IG,rfx Aptima HPV all pt hon 08-09-2022 . . Normal [facility] Comment on above: Performed By: #### C MP #### [facility] [address] [place] [address] Dr. Ramses Dumas DIAGNOSIS: Comment Abnormal [facility] Comment on above: Result Comment: EPIT HELIAL CELL ABNORMALITY. LOW GRADE SQUAMOUS INTRAEPITHELIAL LESION (LSIL). Performed By: #### C MP #### [facility] [address] [place] [address] Dr. Ramses Dumas Electronically signed by: Comment Normal [facility] Comment on above: Result Comment: Arnaud Joseph MD, Pathologist Performed By: #### C MP #### [facility] [address] [address] [address] Ramses Dumas HPV Aptima Negative Normal Negative [facility] Comment on above: Result Comment: This nucleic acid amplification test detects fourteen high-risk HPV types (16,18,31,33,35,39,45,51,52,56,58,59,66,68) without differentiation. Performed By: #### C MP #### [facility] [address] [address] [address] Ramses Dumas Methodology: Comment Normal [facility] Comment on above: Result Comment: This liquid based ThinPrep(R) pap test was screened with the use of an image guided system. Performed By: #### C MP #### [facility] [address] [place] [address] Dr. Ramses Dumas Note: Comment Normal [facility] Comment on above: Result Comment: The Pap smear is a screening test designed to aid in the detection of premalignant and malignant conditions of the uterine cervix. It is not a diagnostic procedure and should not be used as the sole means of detecting cervical cancer. Both false-positive and false-negative reports do occur. . Performed By: #### C MP #### [facility] [address] [place] [address] Dr. Ramses Dumas Pathologist Provided ICD10 Comment Normal [facility] Comment on above: Result Comment: [id number] Performed By: #### C MP #### [facility] [address] [place] [address] Dr. Ramses Dumas Performed by: Comment Normal [facility] Comment on above: Result Comment: Gail Ruano, Equipment Installer (ASCP) Performed By: #### C MP #### [facility] [address] [place], [place] [id number] Dr. Ramses Dumas Reflex Criteria: Comment Normal [facility] Comment on above: Result Comment: See below for HPV testing results. . Performed By: #### C MP #### [facility] [address] [place], [place] [id number] Dr. Ramses Dumas Specimen adequacy: Comment Normal [facility] Comment on above: Result Comment: Sati sfactory for evaluation. Endocervical and/or squamous metaplastic cells (endocervical component) are present. Performed By: #### C MP #### [facility] [address] [place] [address] Dr. Ramses Dumas Vital Signs Date Time Vital Sign Value Performing Clinician Facility 04-05-2025 13:06-0400 Body mass index (BMI) [Ratio] 29.86 kg/m2 [facility] [employer] Work Phone: [facility] 04-05-2025 13:06-0400 Body weight 83.92 kg [facility] [employer] Work Phone: [facility] 04-05-2025 13:06-0400 Diastolic blood pressure 72 mm[Hg] [facility] Work Phone: [facility] 04-05-2025 13:06-0400 Systolic blood pressure 124 mm[Hg] [facility] Work Phone: [facility] 01-29-2025 09:23-0400 Body temperature 98.1 [degF] Luis Fel[facility]ruz [facility] 01-29-2025 09:23-0400 Diastolic blood pressure 86 mm[Hg] Luis Felipe [facility]acruz [facility] 01-29-2025 09:23-0400 Heart rate 81 /min Luis Felipe Delacruz MD [facility] 01-29-2025 09:23-0400 Respiratory rate 18 /min Luis Felipe Delacruz MD [facility] 01-29-2025 09:23-0400 SaO2% (BldA) [Mass fraction] 100 % Luis Felipe Delacruz MD [facility] 01-29-2025 09:23-0400 Systolic blood pressure 129 mm[Hg] Luis Felipe Delacruz MD [facility] 01-29-2025 06:00-0400 Body mass index (BMI) [Ratio] 29.01 kg/m2 Luis Felipe Delacruz MD Work Phone: [facility] [email or web address] 01-29-2025 06:00-0400 Body weight 81.5 kg Luis Felipe Delacruz MD Work Phone: [facility] [email or web address] 01-27-2025 10:01-0400 Body height 167.6 cm Luis Felipe Delacruz MD Work Phone: [facility] [email or web address] 01-22-2025 11:49-0400 Body temperature 97.7 [degF] Luis Felipe Delacruz MD Work Phone: [facility] [email or web address] 01-22-2025 11:49-0400 Diastolic blood pressure 75 mm[Hg] Luis Felipe Delacruz MD Work Phone: [facility] [email or web address] 01-22-2025 11:49-0400 Heart rate 54 /min Luis Felipe Delacruz MD Work Phone: [facility] [email or web address] 01-22-2025 11:49-0400 Respiratory rate 15 /min Luis Felipe Delacruz MD Work Phone: [facility] [email or web address] 01-22-2025 11:49-0400 SaO2% (BldA) [Mass fraction] 98 % Luis Felipe Delacruz MD Work Phone: [facility] [email or web address] 01-22-2025 11:49-0400 Systolic blood pressure 108 mm[Hg] Luis Felipe Delacruz MD Work Phone: [facility] [email or web address] 01-21-2025 23:45-0400 Body height 167.6 cm Luis Felipe Delacruz MD Work Phone: [facility] [email or web address] 01-21-2025 23:45-0400 Body mass index (BMI) [Ratio] 28.23 kg/m2 Luis Felipe Delacruz MD Work Phone: [facility] [email or web address] 01-21-2025 23:45-0400 Body weight 79.3 kg Luis Felipe Delacruz MD Work Phone: [facility] [email or web address] 04-10-2024 07:30-0400 Body temperature 98 [degF] MD Domingo Snyder Work Phone: [facility] 04-10-2024 07:30-0400 Diastolic blood pressure 73 mm[Hg] MD Domingo Snyder Work Phone: [facility] 04-10-2024 07:30-0400 Heart rate 75 /min MD Domingo Snyder Work Phone: [facility] 04-10-2024 07:30-0400 Respiratory rate 16 /min MD Domingo Snyder Work Phone: [facility] 04-10-2024 07:30-0400 SaO2% (BldA) [Mass fraction] 100 % MD Domingo Snyder Work Phone: [facility] 04-10-2024 07:30-0400 Systolic blood pressure 123 mm[Hg] MD Domingo Snyder Work Phone: [facility] 04-08-2024 22:44-0400 Body height 167.64 cm MD Domingo Snyder Work Phone: [facility] 04-08-2024 22:44-0400 Body weight 86.58 kg MD Domingo Snyder Work Phone: [facility] 03-20-2023 10:30-0400 Blood Pressure Location Nona RAYGOZA [facility] 03-20-2023 10:30-0400 Diastolic blood pressure 73 mm[Hg] Nona RAYGOZA [facility] 03-20-2023 10:30-0400 Heart rate 80 /min Nona RAYGOZA [facility] 03-20-2023 10:30-0400 Respiratory rate 16 /min Nona RAYGOZA [facility] 03-20-2023 10:30-0400 Systolic blood pressure 128 mm[Hg] Nona RAYGOZA [facility] Encounters Encounter Date Encounter Type [...] Start: 05-05-2025 End: 05-05-2025 ambulatory Vj Fraire [facility] Work Phone: Start: 05-05-2025 End: 05-05-2025 Departed Referred Vj Fraire DO -LAB [facility] Start: 04-24-2025 End: 04-24-2025 Bamboo steven Leiva MD Work Phone: [facility] Start: 04-24-2025 End: 04-24-2025 Bamboo steven Leiva MD Work Phone: [facility] Start: 04-24-2025 End: 04-24-2025 Postop follow up visit related to original px Patrick Leiva MD Work Phone: [facility] Comment on above: Encounter for remova [...] Start: 03-16-2025 End: 03-16-2025 ambulatory Adonis Guerra Facility:[facility] Start: 01-26-2025 End: 01-29-2025 Evaluation and management of inpatient Luis Felipe Delacruz MD Work Phone: [facility] Renal//Med Surg Comment on above: Bilateral ureteral c alculi; Acute postoperative pain Start: 01-26-2025 Emergency department patient visit DOMINGO RICHYane Facility:[facility] Start: 01-21-2025 End: 01-22-2025 Evaluation and management of inpatient Luis Felipe Delacruz MD Work Phone: [facility] 3C MED SURG Comment on above: Acute postoperative pain (Primary Dx); Renal calculus, left Start: 01-21-2025 End: 01-21-2025 ambulatory Domingo Snyder MD Work Phone: [facility] Work Phone: Start: 01-21-2025 End: 01-21-2025 Departed Referred Domingo Snyder MD Work Phone: [facility] Start: 01-17-2025 End: 01-19-2025 ambulatory DOMINGO SNYDER [facility] Start: 01-17-2025 End: 01-19-2025 Subsequent hospital visit by physician Octavio Shi Rn [facility] Special Procedures Comment on above: Arrived VUR (vesicoureteric reflux) Start: 01-05-2025 End: 01-07-2025 [facility] Start: 12-02-2024 End: 12-02-2024 ambulatory Domingo Snyder MD Work Phone: [facility] Work Phone: Start: 12-02-2024 End: 12-02-2024 Departed Referred Domingo Snyder MD Work Phone: [facility] Start: 06-16-2024 End: 10-03-2024 ambulatory [place] Start: 04-09-2024 Non-patient / Non-visit MD Vicente Snyder Work Phone: [facility] Out[facility] Work Phone: Start: 04-08-2024 End: 04-10-2024 Evaluation and management of inpatient MD Domingo Snyder Work Phone: [facility] Work Phone: Start: 12-04-2023 End: 12-05-2023 ambulatory Nona RAYGOZA Facility:[facility] Start: 12-04-2023 End: 12-04-2023 Patient encounter procedure Nona RAYGOZA [facility] Start: 04-10-2023 End: 04-10-2023 Patient encounter status Jefferson Gibbs DO Work Phone: [facility] Start: 04-09-2023 End: 04-10-2023 ambulatory Nona RAYGOZA Facility:[id number] Start: 03-20-2023 End: 03-21-2023 ambulatory Nona RAYGOZA Facility:[facility] Start: 03-20-2023 End: 03-20-2023 Patient encounter procedure Nona RAYGOZA [facility] Start: 02-16-2023 End: 02-16-[address] DOMINGO SNYDER . Facility:[facility] Start: 02-02-2023 End: 02-02-[address] DOMINGO SNYDER . Facility:[facility] Start: 12-26-2022 End: 12-27-2022 ambulatory Nona RAYGOZA Facility:[facility] Start: 12-26-2022 End: 12-26-2022 Patient encounter procedure Nona RAYGOZA [facility] Start: 12-16-2022 End: 12-17-[address] NONA RAYGOZA . Facility:[facility] Start: 12-15-2022 End: 12-16-[address] NONA RAYGOZA . Facility:[facility] Start: 11-27-[address] DOMINGO SNYDER . Facili ty:[facility] Start: 11-07-2022 End: 11-07-[address] DOMINGO SNYDER . Facility:[facility] Start: 11-04-2022 Encounter for preprocedural cardiovascular examination DR JEFFERSON GIBBS . [facility] Start: 11-04-2022 Encounter for preprocedural laboratory examination DR JEFFERSON GIBBS . [facility] Start: 11-03-2022 End: 11-04-2022 Encounter for preprocedural cardiovascular examination DR DOMINGO SNYDER . Facility:[facility] Start: 11-03-2022 End: 11-04-[address] DOMINGO SNYDER . Facility:[facility] Start: 09-20-2022 Encounter for preprocedural laboratory examination DR NONA RAYGOZA . [facility] Start: 09-18-2022 End: 09-18-[address] NONA RAYGOZA . Facility:[facility] Start: 09-16-2022 End: 09-17-[address] NONA RAYGOZA . Facility:[facility] Start: 09-16-2022 End: 09-17-2022 Encounter for preprocedural laboratory examination DR NONA RAYGOZA . Facility:[facility] Start: 09-05-2022 End: 09-05-2022 ambulatory ORA BOND . Facility:[facility] Start: 09-04-2022 End: 09-04-2022 ambulatory DANIEL MONTGOMERY Facility:[facility] Start: 09-04-2022 End: 09-04-2022 ambulatory Daniel Montgomery DINING ROOM ATTENDANT.ENTRY WRITER Work Phone: Urology Comment on above: NO SHOW (Primary Dx) Start: 09-04-2022 End: 09-04-2022 Telemedicine consultation with patient Daniel Montgomery DINING ROOM ATTENDANT.ENTRY WRITER Work Phone: [facility] Start: 08-28-2022 End: 08-29-[address] ERWIN MOORE Facility:[facility] Start: 08-22-2022 End: 08-24-[address] DOMINGO SNYDER . Facility:[facility] Start: 08-13-2022 End: 08-13-2022 ambulatory ORA BOND . Facility:[facility] Start: 07-31-2022 Encounter for cervic al smear to confirm findings of recent normal smear following initial abnormal smear DR JEFFERSON GIBBS . [facility] Start: 07-30-2022 End: 07-30-[address] [...] Work Phone: Start: 01-27-2025 CULTURE, BLOOD 1 [facility] sarahy Arora DO Work Phone: Start: 01-27-2025 CULTURE, BLOOD 1 [facility] sarahy Hemphill DO Work Phone: Start: 01-27-2025 Basic metabolic pane l calcium total Kyung Miester DINING ROOM ATTENDANT - MANAGER PUBLIC Work Phone: Start: 01-26-2025 Basic metabolic pane [...] DTaP/Tdap/Td vaccine (7 - Td or Tdap) [facility] Start: 05-29-2026 End: 05-29-2026 Patient encounter procedure 05/29/2026 1:15 PM EDT Office Visit [facility] [address] [place] [address] Patrcik Leiva MD [address] [place] [address] [facility] [place] [facility] Start: 04-09-2026 End: 04-09-2026 Patient encounter procedure [facility] Start: 05-29-2025 End: 05-29-2025 Patient encounter procedure [facility] Comment on above: Arrived Start: 05-19-2025 Influenza vaccination Flu vaccine (Season Ended) [facility] Start: 05-15-2025 End: 05-15-2025 Patient encounter procedure 05/15/2025 3:30 PM EDT Office Visit [facility] [address] [place] [id number] Patrick Leiva MD [address] [place] [address] [facility] Start: 05-05-2025 Urine culture [facility] Start: 05-05-2025 Bacteria identified in Urine by Culture Urine Culture [facility] Start: 04-24-2025 End: 04-24-2025 Patient encounter procedure [facility] Comment on above: Arrived Start: 04-10-2025 End: 04-10-2025 Patient encounter procedure [facility] Comment on above: Arrived Start: 04-05-2025 End: 04-05-2025 Patient encounter procedure 04/05/2025 1:00 PM EDT Office Visit [facility] [address] [place] [id number] Jefferson Gibbs DO [address] [place] [address] Arrived [facility] Comment on above: Arrived Start: 01-22-2025 End: 01-22-2025 CYSTOSCOPY URETERAL STENT INSERTION CYSTOSCOPY URETERAL STENT INSERTION Renal calculus, left 01/22/2025 9:28 AM EDT [facility] Start: 01-21-2025 Urine culture [facility] Start: 01-21-2025 Bacteria identified in Urine by Culture Urine Culture [facility] Start: 12-02-2024 Urine culture [facility] Start: 12-02-2024 Bacteria identified in Urine by Culture Urine Culture [facility] Start: 06-19-2024 COVID-19 Vaccine ( season) COVID-19 Vaccine ( season) [facility] Start: 04-10-2024 [facility] Start: 04-08-2024 Referral to Phlebotomist Lab Assistant [facility] Start: 04-08-2024 Hospital admission [facility] Start: 04-08-2024 [facility] Start: 06-19-2022 Influenza vaccination INFLUENZA (#1) [facility] Start: 10-19-2021 DEPRESSION ASSESSMENT DEPRESSION ASSESSMENT [facility] Start: 2021 HPV TESTING HPV TESTING [facility] Start: 2021 [facility] Start: 2012 PAP TESTING PAP TESTING [facility] Start: 2012 Screening for malignant neoplasm of cervix Pap [facility] Start: 2010 Urine microalbumin profile DTAP,TDAP,TD (1 - Tdap) [facility] Start: 2009 HEPATITIS C SCREENING HEPATITIS C SCREENING [facility] Start: 2009 Hepatitis C screening Hepatitis C screen [facility] Start: 2009 HIV SCREENING HIV SCREENING [facility] Start: 2006 HIV screening [facility] Start: 2004 Varicella vaccine (1 of 2 - 13+ 2-dose series) Varicella vaccine (1 of 2 - 13+ 2-dose series) [facility] Start: 2003 Depression Screen Depression Screen [facility] Start: 1995 Polio vaccine (4 of 4 - 4-dose series) Polio vaccine (4 of 4 - 4-dose series) [facility] Start: 03-14-1992 COVID-19 VACCINE (#1) COVID-19 VACCINE (#1) [facility] Start: 1991 HEPATITIS B (1 of 3 - 3-dose series) HEPATITIS B (1 of 3 - 3-dose series) [facility] End: 01-24-2025 Basic metabolic 2000 panel - Serum or Plasma Basic metabolic panel Lab Routine Daily for 3 Days starting 01/22/2025 until 01/24/2025, 1 completed [employer] Comment on above: Daily for 3 Days starting 01/22/2025 unt il 01/24/2025, 1 completed End: 01-24-2025 CBC W Auto Differential panel - Blood CBC with Auto Differential Lab Routine Daily for 3 Days starting 01/22/2025 until 01/24/2025 [employer] Comment on above: Daily for 3 Days starting 01/22/2025 unt il 01/24/2025 Culture, Blood 1 [employer] Culture, Urine [employer] Comment on above: Release Upon Ordering for 1 Occurrences starting 01/22/2025 Cytology Cervical or vaginal smear or scraping study Pap Smear Pathology and Cytology Routine Well woman exam with routine gynecological exam Ordered: 04/05/2025 [email or web address] Work Phone: Comment on above: Ordered: 04/05/2025 Dermatopathology exam Dermatopat hology exam Pathology and Cytology Timed Neoplasm of unspecified behavior of bone, soft tissue, and skin Release Upon Ordering for 1 Occurrences starting 04/10/2025 [employer] Phone: Comment on above: Release Upon Ordering for 1 Occurrences starting 04/10/2025 Dermatopathology exam Dermatopat hology exam Pathology and Cytology Timed Neoplasm of unspecified behavior of bone, soft tissue, and skin Release Upon Ordering for 1 Occurrences starting 05/15/2025 [email or web address] Work Phone: Comment on above: Release Upon Ordering for 1 Occurrences starting 05/15/2025 End: 01-22-2025 Glucose [Mass/volume] in Serum or Plasma POCT Glucose Point of Care Testing Routine One Time for 1 Occurrences starting 01/22/2025 until 01/22/2025 [employer] Work Phone: Comment on above: One Time for 1 Occurrences starting 03/2025 until 01/22/2025 Human papilloma viru s DNA [Presence] in Unspecified specimen by Probe with amplification HPV DNA probe, amplified Microbiology Routine Well woman exam with routine gynecological exam Ordered: 04/05/2025 [facility] Comment on above: Ordered: 04/05/2025 Oxygen therapy [Mini mum Data Set] Initiate Oxygen Therapy Protocol Respiratory Care Routine As Needed until discontinued starting 01/21/2025 [employer] Comment on above: As Needed until discontinued starting Oxygen therapy [Mini mum Data Set] Initiate Oxygen Therapy Protocol Respiratory Care Routine As Needed until discontinued starting 01/26/2025 [employer] Comment on above: As Needed until discontinued starting Patient Education Bipolar Disord er (DC) [facility] [place] Instructions Know your Meds [facility] Work Phone: Patient referral [facility] Work Phone: End: 01-22-2025 Stone Analysis Stone Analysis Microbiology Routine One Time for 1 Occurrences starting 01/22/2025 until 01/22/2025 [employer] Work Phone: Comment on above: One Time for 1 Occurrences starting 03/2025 until 01/22/2025 Stone Analysis Stone Analysis Microbiology [employer] Label Print 01/22/2025 4:44 AM EDT [employer] End: 01-26-2025 Stone Analysis Stone Analysis Microbiology Routine One Time for 1 Occurrences starting 01/26/2025 until 01/26/2025 [employer] Comment on above: One Time for 1 Occurrences starting 01/17 until 01/26/2025 Immunizations Immunization Date Immunization Notes Care Provider Beata moore 08-01-2019 influenza virus vaccine, unspecified formulation Nona RAYGOZA [facility] 08-09-2018 tetanus toxoid, redu franco diphtheria toxoid, and acellular pertussis vaccine, adsorbed Nona RAYGOZA [facility] 08-08-2018 influenza virus vaccine, unspecified formulation Nona RAYGOZA [facility] 06-19-2004 hepatitis B vaccine, pediatric or pediatric/adolescent dosage Nona RAYGOZA [facility] 03-27-2004 hepatitis B vaccine, pediatric or pediatric/adolescent dosage Nona RAYGOZA [facility] 12-18-2003 hepatitis B vaccine, pediatric or pediatric/adolescent dosage Nona RAYGOZA [facility] 12-18-2003 measles, mumps and rubella virus vaccine Nona RAYGOZA [facility] 04-10-1993 DTaP, unspecified formulation [employer] [facility] 04-10-1993 poliovirus vaccine, unspecified formulation [employer] [facility] 12-28-1992 Hib, unspecified formulation Nona RAYGOZA [facility] 12-28-1992 measles, mumps and rubella virus vaccine Nona [employer] [facility] 03-26-1992 Hib, unspecified formulation Nona RAYGOZA [facility] 01-18-1992 Hib, unspecified formulation Nona RAYGOZA [facility] 1991 Hib, unspecified formulation Nona RAYGOZA [facility] Payers Date Payer Category Payer Self-pay 2023 Private Health Insurance [employer] [id number] 2023 Unknown [id number] 2021 Medicaid [place] MEDICAID TERM 09/17 [facility] MEDICAID [id number] 2021-Present [phone] [address] [place] [address] Medicaid [id number] 1991 Unknown [id number] 2.16.840.1.219064.3.579.2. 593 1991 Unknown [id number] 2.16.840.1.740934.3.579.2. 593 1991 Unknown [id number] 2.16.840.1.482569.3.579.2. 593 1991 Unknown [id number] 2.16.840.1.401596.3.579.2. 593 1991 Unknown [id number] 2.16.840.1.732269.3.579.2. 593 1991 Unknown [id number] 2.16.840.1.643368.3.579.2. 593 1991 Unknown [id number] 2.16.840.1.328676.3.579.2. 593 1991 Unknown [id number] 2.16.840.1.142537.3.579.2. 593 1991 Unknown [id number] 2.16.840.1.880262.3.579.2. 593 1991 Unknown [id number] 2.16.840.1.593219.3.579.2. 593 1991 Unknown [id number] 2.16.840.1.085589.3.579.2. 593 1991 Unknown [id number] 2.16.840.1.364103.3.579.2. 593 1991 Unknown [id number] 2.16.840.1.141776.3.579.2. 593 1991 Unknown [id number] 2.16.840.1.700088.3.579.2. 593 1991 Unknown [id number] 2.16.840.1.634441.3.579.2. 593 1991 Unknown [id number] 2.16.840.1.806414.3.579.2. 593 1991 Unknown [id number] 2.16.840.1.411163.3.579.2. 727 1991 Unknown [id number] 2.16.840.1.231522.3.579.2. 727 1991 Unknown [id number] 2.16.840.1.873998.3.579.2. 727 1991 Unknown [id number] 2.16.840.1.630720.3.579.2. 727 1991 Unknown [id number] 2.16.840.1.935558.3.579.2. 174 1991 Unknown [id number] 2.16.840.1.112293.3.579.2. 175 1991 Unknown [id number] 2.16.840.1.290828.3.579.2. 175 1991 Unknown [id number] 2.16.840.1.880811.3.579.2. 175 1991 Unknown [id number] 2.16.840.1.691836.3.579.2. 175 1991 Unknown [id number] 2.16.840.1.078162.3.579.2. 718 1991 Unknown [id number] 2.16.840.1.046475.3.579.2. 1259 1991 Unknown [id number] 2.16.840.1.695786.3.579.2. 1259 1991 Unknown [id number] 2.16.840.1.660688.3.579.2. 1259 1991 Unknown [id number] 2.16.840.1.841082.3.579.2. 1259 1959 Medicaid [id number] 1959 Self-pay [id number] 1959 Unknown [id number] Unknown [id number] 2.16.840.1.972782.3.579.2. 531 Unknown [id number] 2.16.840.1.741506.3.579.2. 531 Unknown [id number] 2.16.840.1.921480.3.579.2. 531 Social History Date Type Detail Facility [facility] Start: 1990 Sex Assigned At Not on file C [facility] Start: 08-20-2021 End: 04-10-2025 Tobacco smoking status Never smoked tobacco (finding) [facility] Tobacco smoking status Never [facility] Start: 01-22-2025 End: 05-15-2025 Sex Assigned At Female [facility] Start: 1990 Sex Assigned At Female [facility] Start: 11-24-2024 End: 12-04-2024 Sex Female (finding) [facility] Start: 01-22-2025 End: 04-10-2025 Tobacco use and exposure Smokeless tobacco non-user [employer] Start: 01-22-2025 End: 01-27-2025 Alcoholic beverage intake Ex-drinker (finding) [employer] Start: 01-22-2025 End: 05-15-2025 History of Social function [employer] Has the [employer], or [employer] threatened to shut off services in your home in past 12Mo No [email or web address] (I/We) worried wheth er (my/our) food would run out before (I/we) got money to buy more. Never true [email or web address] Start: 01-10-2024 End: 05-29-2025 Alcoholic beverage intake Lifetime non-drinker (finding) [facility] Medical [facility] Procedure Code Equipment Code Equipment Origin al Text Equipment Identifier Dates Stent Uret 6fr L 26cm Percflx Hydr+ Tapr Tip Grad - [id number] , [id number] FDA Start: 01-22-2025 Stent Uret 6fr L 26cm Percflx Hydr+ Dbl Pgtl Thrd 2 - [id number] , [id number], [id number] FDA Start: 01-27-2025 Goals Date Patient Goal Desired Activity /State Functional Status Date Assessment Result Facility 04-10-2024 Functional status Patient at Baseline [facility] Work Phone: 03-20-2023 Functional Status N/A [facility] Mental Status Date Assessment Result Facility 04-10-2024 Cognitive function Cognitive Sta tus Patient at Baseline [facility] Work Phone: Clinical Notes [...] year, skin check documented in this encounter [facility] 05-15-2025 History of Present illness Narrative Images [...] nevus Check Margins: Yes Previous accession number: [id number] 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, soft tissue, and skin Plan: Skin excision, Skin repair Follow up: 14 days for s/r documented in this encounter [facility] 04-24-2025 History of Present illness Narrative Images [...] Visit: as scheduled documented in this encounter [facility] 04-10-2025 History of Present illness Narrative Images [...] OF RIGHT UPPER EYELID Right Upper Eyelid Streator papule Favor possible stye, recommend patient continue [...] Visit: 2 weeks documented in this encounter [facility] 04-05-2025 History of Present illness Narrative Reason [...] (BMI) of 40.1 to 44.9 in adult ([facility]) 04/10/2023 Encounter for follow-up examination after completed treatment for conditions other than malignant neoplasm 04/10/2023 IUD contraception 04/10/2023 Menorrhagia with regular cycle 04/10/2023 Anti-M isoimmunization affecting , 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[facility]) 03/18/2018 Anxiety 07/26/2020 Bipolar disorder ([facility]) 06/01/2023 Dysuria 06/01/2023 Entrapment of left ulnar nerve 06/01/2023 Feeling of incomplete bladder emptying 06/01/2023 Flank pain 06/01/2023 Frequency of urination 06/01/2023 History of chlamydia 07/26/2020 History of gestational diabetes 07/26/2020 History of kidney stones 06/01/2023 Hypercalciuria 06/01/2023 Hyperoxaluria 06/01/2023 Intrauterine ([facility]) 02/18/2018 Lesion of ulnar nerve 06/01/2023 Mass of scalp 06/01/2023 Muscle pain 06/01/2023 Microhematuria 06/01/2023 Astigmatism 05/05/2017 Nocturia 06/01/2023 Overweight 06/01/2023 Pyelonephritis 06/01/2023 Kidney stone 06/01/2023 Retroflexion of uterus 06/01/2023 Sprain of calcaneofibular ligament 06/01/2023 Streptococcal pharyngitis 06/01/2023 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/01/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 06/01/2023 Superficial thrombophlebitis 06/01/2023 Term delivery with labor in third trimester ([facility]) 08/06/2018 Urge incontinence 06/01/2023 Urinary urgency 06/01/2023 UTI (urinary tract infection) 06/01/2023 Mass of left breast 01/08/2024 Resolved Ambulatory Problems Diagnosis Date Noted Encounter for gynecological examination (general) (routine) without abnormal findings 04/10/2023 Past Medical History: Diagnosis Date Abnormal Pap smear of cervix Anxiety and depression Bipolar 1 disorder (HCC) Bladder prolapse, congenital ([facility]) Dysplasia of cervix S/P VH (vaginal hysterectomy) 05/06/2023 Yeast infection HISTORY PAST MEDICAL HISTORY SOCIAL HISTORY Past Medical History: Diagnosis Date Abnormal Pap smear of cervix Anxiety and depression Bipolar 1 disorder (HCC) Bladder prolapse, congenital ([facility]) Dysplasia of cervix History of kidney stones [...] nursing note reviewed. Exam conducted with a dispatcher motor vehicle present. Vitals: Estimated body mass index is [...] them. Patient can also view results via [employer]. I reinforced importance of condom use for [...] Jefferson Gibbs DO documented in this encounter [facility] 01-29-2025 History of Present illness Narrative Patient given all discharge instructions and education. Patient and present for teaching. Patient voices she still has antibiotic at home and was instructed to continue to taking them. Patient also instructed to pull stent. Awaiting scripts from pharmacy. Images from the original note were not included. [facility] Office: [phone] Duncan Shelton DO, Rad Burks DO, Gerald [...] WAYNE, Felicita Rm, WAYNE, Pau Viera, WAYNE [facility] IN-PATIENT SERVICE [facility] Progress Note 01/29/2025 9:05 AM Name: Diana Barriga Acct: [id number] Room: [address] [place] [address] Day: 3 Admit Date: 01/26/2025 5:25 PM [...] results for input(s): LABALBU , LABA1C , B9VAVCB , FT4 , TSH , AST , ALT , LDH , GGT , ALKPHOS , BILITOT , BILIDIR , AMMONIA , AMYLASE , LIPASE , LACTATE , CHOL , HDL , CHOLHDLRATIO , TRIG , VLDL , HHQ55TT , PHENYTOIN , PHENYF , URICACID , POCGLU in the last 72 hours. Invalid input(s): PROT , E0ISGIP , LABGGT , LDLCHOLESTEROL ABG:No results found for: POCPH , PHART , PH , POCPCO2 , PKH3ZNZ , PCO2 , POCPO2 , PO2ART , PO2 , POCHCO3 , SHH4PPZ , HCO3 , NBEA , PBEA , BEART , BE , THGBART , THB , REU4GAL , YSEX3NYZ , R2WESECW , O2SAT , FIO2 Lab Results Component [...] from the original note were not included. [facility] Office: [phone] Duncan Shelton DO, Rad Burks DO, Gerald [...] Rogers MD, Johnathon Cerda MD, Makenzie Alberts, ENTRY WRITER, Hodan [place], ENTRY WRITER, Casey Mercer, ENTRY WRITER, Galilea Bradshaw, [facility], Ritika Villaseñor, ENTRY WRITER, Indu Montoya, ENTRY WRITER, Angelica Chaney, ENTRY WRITER, Vivian Kahn, ENTRY WRITER, Garima Balbuena, PA-C, Kyung Barkley, ENTRY WRITER, Hetal Morris, ENTRY WRITER, Yvette Canchola, ENTRY WRITER, Gail Greene, ENTRY WRITER, Dominguez Nunez, PA-C, Mar Sanchez, ENTRY WRITER, Cecelia Pearson, MS ACCESS DATABASE DEVELOPER, Ivy Cortes, ENTRY WRITER, Felicita Rm, ENTRY WRITER, Pau Viera, ENTRY WRITER [facility] IN-PATIENT SERVICE [facility] Progress Note 01/28/2025 1:05 PM Name: Diana Barriga Acct: [id number] Room: 0321/0321-02 Day: 2 Admit Date: 01/26/2025 [...] results for input(s): LABALBU , LABA1C , V6JNYKO , FT4 , TSH , AST , ALT , LDH , GGT , ALKPHOS , BILITOT , BILIDIR , AMMONIA , AMYLASE , LIPASE , LACTATE , CHOL , HDL , CHOLHDLRATIO , TRIG , VLDL , JRS16KZ , PHENYTOIN , PHENYF , URICACID , POCGLU in the last 72 hours. Invalid input(s): PROT , N0GLNCX , LABGGT , LDLCHOLESTEROL ABG:No results found for: POCPH , PHART , PH , POCPCO2 , QYP9LSN , PCO2 , POCPO2 , PO2ART , PO2 , POCHCO3 , POH3ESM , HCO3 , NBEA , PBEA , BEART , BE , THGBART , THB , GTR1DCI , TMFK1YMX , I3JHCLBZ , O2SAT , FIO2 Lab Results Component [...] 0.9 0.7 Recent Labs 01/26/25 1753 [address] [place]* PHUR 6.5 WBCUA 20 TO 50 RBCUA [...] mass loss Fluid Accumulation: Unable to assess Medical Records Custodian Strength: Not Performed Nutrition Assessment: 34 y.o.F [...] Measures: Height: 167.6 cm (5' 5.98 ) [place] Body Weight (IBW): 130 lbs (59 kg) Current Body Weight: 81.6 kg (179 lb 14.3 oz), 138.4 % IBW. Current BMI (kg/m2): 29 Estimated Daily Nutrient Needs: Energy Requirements Based On: Formula Weight Used for Energy Requirements: Current Energy (kcal/day): 8167-2323 kcals/day Weight Used for Protein Requirements: Current Protein (g/day): 82-92 g/day Method Used for Fluid Requirements: 1 ml/kcal Fluid (ml/day): 0706-8344 ml/day Nutrition Diagnosis: Inadequate oral intake related [...] determine Anastasiya Medel RDN, LD, MS Contact: [phone] Images from the original note were not included. [facility] Office: [phone] Duncan Shelton DO, Rad Burks DO, Gerald [...] Rogers MD, Johnathon Cerda MD, Makenzie Alberts, ENTRY WRITER, [place], ENTRY WRITER, Casey Mercer, ENTRY WRITER, Galilea Bradshaw, [facility], Ritika Villaseñor, ENTRY WRITER, Indu Montoya, ENTRY WRITER, Angelica Chaney, ENTRY WRITER, Vivian Kahn, ENTRY WRITER, Garima Balbuena, PA-C, Kyung Barkley, ENTRY WRITER, Hetal Morris, ENTRY WRITER, Yvette Canchola, ENTRY WRITER, Gail Greene, ENTRY WRITER, Dominguez Nunez, PA-C, Mar Sanchez, ENTRY WRITER, Cecelia Pearson, MS ACCESS DATABASE DEVELOPER, Ivy Cortes, ENTRY WRITER, Felicita Rm, ENTRY WRITER, Pau Viera, ENTRY WRITER [facility] IN-PATIENT SERVICE [facility] Progress Note 01/27/2025 9:31 AM Name: Diana Barriga Acct: [id number] Room: 0321/0321-02 Day: 1 Admit Date: 01/26/2025 [...] results for input(s): LABALBU , LABA1C , E4RZJLS , FT4 , TSH , AST , ALT , LDH , GGT , ALKPHOS , BILITOT , BILIDIR , AMMONIA , AMYLASE , LIPASE , LACTATE , CHOL , HDL , CHOLHDLRATIO , TRIG , VLDL , ZCK89UY , PHENYTOIN , PHENYF , URICACID , POCGLU in the last 72 hours. Invalid input(s): PROT , M1AMZKK , LABGGT , LDLCHOLESTEROL ABG:No results found for: POCPH , PHART , PH , POCPCO2 , OMO2DOQ , PCO2 , POCPO2 , PO2ART , PO2 , POCHCO3 , LYT5LBC , HCO3 , NBEA , PBEA , BEART , BE , THGBART , THB , VFP3EFN , UYOH8HIQ , D3JKLVDK , O2SAT , FIO2 Lab Results Component [...] CREATININE 0.9 Recent Labs 01/26/25 [address] [place]* PHUR 6.5 WBCUA 20 TO 50 RBCUA [...] PM EDT documented in this encounter [facility] 01-29-2025 Hospital course Narrative Images from the original note were not included. [facility] Office: [phone] Duncan Shelton DO, Rad Burks DO, Gerald [...] Rogers MD, Johnathon Cerda MD, Makenzie Alberts, ENTRY WRITER, [place], ENTRY WRITER, Casey Mercer, ENTRY WRITER, Galilea Bradshaw, [facility], Ritika Villaseñor, ENTRY WRITER, Indu Montoya, ENTRY WRITER, Angelica Chaney, ENTRY WRITER, Vivian Kahn, ENTRY WRITER, Garima Balbuena, PAAilynC, Kyung Barkley, ENTRY WRITER, Hetal Morris, ENTRY WRITER, Yvette Canchola, ENTRY WRITER, Gail Greene, ENTRY WRITER, Dominguez Nunez PAAilynC, Mar Sanchez, ENTRY WRITER, Cecelia Pearson, [facility], Ivy Cortes, ENTRY WRITER, Felicita Rm, ENTRY WRITER, Pau Viera, ENTRY WRITER [facility] IN-PATIENT SERVICE [facility] Discharge Summary Patient ID: Diana Barriga : 1990 ACCOUNT: [id number] Patient's PCP: Domingo Snyder MD Admit Date: [...] Physician Follow Up: Domingo Snyder MD [address] [facility] [address] Schedule an appointment as soon as possible for a visit in 1 week(s) Adonis Guerra MD [address] [facility] [place] [address] Follow up Renal US in 6 [...] narcotics Please call attending physician or hospital incubator operator with questions Call or Present to [...] this patient's care. documented in this encounter [facility] 01-28-2025 Hospital Discharge instructions [place] [...] narcotics Please call attending physician or hospital incubator operator with questions Call or Present to [...] call with questions. documented in this encounter [facility] 01-22-2025 History of Present illness [...] paid by clover documented in this encounter [facility] 01-22-2025 Hospital course Narrative Images from the original note were not included. [facility] Office: [phone] Duncan Shelton DO, Rad Burks DO, Gerald [...] Barkley CNP, Hetal Morris CNP, Yvette Canchola, ENTRY WRITER, Gail Greene, ENTRY WRITER, Dominguez Nunez PA-C, Mar Sanchez CNP, Cecelia Pearson, KYUNG, Ivy Cortes CNP, Felicita Rm, WAYNE, Pau Viera, WAYNE [facility] IN-PATIENT SERVICE [facility] Discharge Summary Patient ID: Diana Barriga : 1990 ACCOUNT: [id number] Patient's PCP: Domingo Snyder MD Admit Date: [...] who was transferred to our hospital from [facility] for evaluation of flank pain. CT [...] Home Physician Follow Up: Adonis Guerra MD [address] [place] [address] Schedule an appointment as soon as [...] Your Medications These medications were sent to [facility] - [place], [place] - [address] [facility] - P [phone] - F [phone] [address] [facility] [address] [address] hyoscyamine 0.125 MG tablet oxyCODONE 5 MG [...] patient's care. v documented in this encounter [facility] 01-22-2025 Hospital Discharge instructions Zia [...] narcotics Please call attending physician or hospital incubator operator with questions Call or Present to ED if fever (> 101F), intractable nausea vomiting or pain. Rx e-prescribed Pt should follow up with Dr. Guerra, in 1-2 weeks, for definitive stone treatment, call to confirm appointment documented in this encounter [facility] 04-10-2024 Discharge summary Note Date/Time April 10, 2024 7:10am [facility] [address] [place] [address] Discharge Summary Signed Patient: Diana Barriga MR#: [id number] : 1990 Acct:[id number] Age/Sex: 33 / F Adm Date: 4 Loc: Room: [address] [place] [address]: Arnulfo Aviles MD Copies to: [...] Dr. Fenton but wants to switch to [facility]. Along with this patient is in marriage counseling with her current and that today's session was not good. Patient stated she needs to be home to take care of her kids, the custody [place], and her marriage. Patient upset because she missed her son's play and has plans to take kids to [place] tomorrow. Patient denies any suicidal ideation denies hallucinations denies racing thoughts. Patient reports that there is no changes in her appetite or sleep. Patient reports that she feels fine. She has tried a lot of medications in the past and believes none of them have worked. He is going to [facility] for psych therapy. He wants to try [...] She has an appointment coming up with [facility]. She deniedrecent suicide attempts or self [...] Restriction Diet: Regular Instructions: Bipolar Disorder (DC), [facility] [place] Instructions, Know your Meds [...] signed by Arnulfo Aviles MD> 04/10/24 [address] [facility] Work Phone: 1(394) 873-320706-22-2024 History and physical note Author Arnulfo ornelas [facility] April 09, 2024 9:09am Note Date/Time April 09, 2024 8:43 am [facility] [address] [place] [address] Psychiatry H&P Signed Patient: Diana Barriga MR#: [id number] : 1990 Acct:[id number] Age/Sex: 33 / F Adm Date: 4 Loc: Room: [address] [place] [address] Type: ADM IN Attending Dr: Arnulfo Aviles [...] Dr. Fenton but wants to switch to [facility]. Along with this patient is in marriage counseling with her current and that today's session was not good. Patient stated she needs to be home to take care of her kids, the custody [place], and her marriage. Patient upset because she missed her son's play and has plans to take kids to [place] tomorrow. Patient denies any suicidal ideation denies hallucinations denies racing thoughts. Patient reports that there is no changes in her appetite or sleep. Patient reports that she feels fine. She has tried a lot of medications in the past and believes none of them have worked. He is going to [facility] for psych therapy. He wants to try therapy before any medications. 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 Documented By: Arnulfo Aviles MD 4 0872 Signed By: <Electronically signed by Arnulfo Aviles MD> 04/09/24 0909 [facility] Work Phone: 1(527) 854-248606-02-2023 Hospital Discharge instructions Follow Up Care 03/20/2023 11:51:58 With:IDALMIS BORDEN, Nona Turner, URL Address: [address] [place], [place] [address]- When: Unknown [facility] 06-02-2023 Hospital Discharge instructions Patient [...] include: ?8 oz (237 mL) of milk, ukrlzqd-ptlqvekrpkdd-hggsv milk, and calcium- fortifiedfruit juice. Calcium-fortified means [...] ?Spinach (cooked), rhubarb, beets, sweet potatoes, and Kazakh chard. ?Peanuts. ?Potato chips, belarusian fries, and baked potatoes with skin on. ?Nuts and nut products. ?Chocolate. If you regularly take a diuretic medicine, make sure to eat at least 1 or 2 servings of fruits or vegetables that are high in potassium each day. These include: ?Avocado. ?Banana. ?[place], prune, carrot, or tomato juice. ?Baked potato. [...] magnesium, fish oil, or vitamin B6. Take kvmi-spm-inyuwje and prescription medicines only as told by [...] Casseroles. Pizza. Lasagna. Frozen meals. Potato chips. Russian fries. The items listed above may not [...] provider. Document Revised: 06/16/2022 Document Reviewed: 06/16/2022 [employer] Patient Education 2022 [employer] Follow Up Care 12/26/2022 08:46:46 With:IDALMIS BORDEN, Nona Turner, URL Address: [facility] [address], [place] [address]- When: Unknown [facility] 01-20-2023 NoteOPERATIVE NOTE OPERATION DATE: 11/07/2022 PROCEDURE: Mery endometrial ablation with LEEP. PREOPERATIVE DIAGNOSIS: Cervical dysplasia, menorrhagia. POSTOPERATIVE DIAGNOSIS: Cervical dysplasia, menorrhagia. ANESTHESIA: General. SURGEON: Jefferson Gibbs D.O. [employer] CONSULTANT: None. BLOOD LOSS: 50 mL. URINE OUTPUT: [...] taken to Recovery Room in stable condition.[id number] Hospital Discharge instructions Follow Up Care 09/25/2022 13:54:04 With:IDALIMS BORDEN, oNna Turner, DANYA Address: [address] [place], [place] [address]- When: Unknown [facility] 12-01-2022 NoteOPERATIVE NOTE OPERATION DATE: [...] usual fashion. I started by passing a 22-Russian Olympus cystoscope per urethra and into the [...] removed. She was then transferred to a gurtinnie and wheeled to PACU in stable condition.[facility] [id number] NoteHNO ID: [id number] Author: Daniel Montgomery APRN.[facility] Service: ? Author Type: Nurse Practitioner Type: Progress Notes Filed: 09/04/2022 7:46 AM Note Text: The patient did not show up for this appointment. The patient did not show up for this appointment.[id number] History of Present illness Narrative* Daniel Montgomery APRN.ENTRY WRITER - 09/04/2022 7:40 AM EST The patient did not show up for this appointment. The patient did not show up for this appointment. [facility] NotePROCEDURE: XR ANKLE LT MIN 3 V COMPARISON: None. HISTORY: Sprain of calcaneofibular ligament FINDINGS: BONES:No fracture, acute abnormality, or significant arthropathy. SOFT TISSUES:Extensive lateral soft tissue swelling EFFUSION:None visible. OTHER: Negative. IMPRESSION: Lateral soft tissue swelling. No acute fracture Electronically authenticated by: GLEN PEREZ Date: 2022-07-03 07:09[facility] Future Appointments Appointment Date:03/20/2023 10:15:00 AM Scheduled Provider:Nona RAYGOZA MD Location:[facility] Appointment Type:URO Office Visit [facility] evaluation + Plan note Future Appointments Appointment Date:12/04/2023 09:45:00 AM Scheduled Provider:Nona RAYGOZA MD Location:[facility] Appointment Type:URO Office Visit Diagnostic Tests Pending * Electrolyte Panel 03/20/23 [facility] evaluation note* Diagnosis NO SHOW- Primary [facility] encounter [facility]* Diagnosis Onset Date Resolution Status Bipolar disorder acute [facility] Work Phone: evaluation noteNo assessment information available [facility] Work Phone: evaluation note* Diagnosis VUR (vesicoureteric reflux) Vesicoureteral reflux, unspecified or without reflux nephropathy [facility]* Diagnosis Left ureteral calculus- Primary Calculus of ureter Renal calculus, left Calculus of kidney Acute postoperative pain Other acute postoperative pain Acute cystitis without hematuria Acute cystitis Acute postoperative pain Other acute postoperative pain Urinary tract obstruction by kidney stone Calculus of kidney documented in this [facility]* Diagnosis Hydronephrosis with renal calculous obstruction- Primary Bilateral ureteral calculi Acute postoperative pain Other acute postoperative pain Left ureteral calculus Calculus of ureter S/P cystoscopy with ureteral stent placement Pyelonephritis Pyelonephritis, unspecified documented in this encounter [facility] [employer] [facility]* Diagnosis Well woman exam with routine gynecological exam Routine gynecological examination H/O: hysterectomy Acquired absence of both cervix and uterus Night sweats Generalized hyperhidrosis documented in this encounter [facility]* Diagnosis Hordeolum externum of right upper eyelid- Primary Neoplasm of unspecified behavior of bone, soft tissue, and skin documented in this encounter [facility]* Diagnosis Encounter for removal of sutures- Primary documented in this encounter [facility]* Diagnosis Neoplasm of unspecified behavior of bone, soft tissue, and skin- Primary documented in this encounter [facility]* Diagnosis Encounter for removal of sutures- Primary documented in this encounter [facility] HealthcareHospital course Narrative No data available for this section [facility] progress note No data available for this section [facility] reason for referral (narrative)No reason for referral information [facility] Work Phone: Reason for visit Narrative* Imaging (Routine) - Open Specialty Diagnoses / Procedures Referred By Luis grigsby Referred To Contact Radiology Diagnoses VUR (vesicoureteric reflux) Procedures [place] VOIDING URETHROCYSTOGRAM S&I Adonis Guerra MD [address] [place] [address] Phone: tel: fax: Referral ID Status Reason Start Date Expiration Date Visits Re quested Visits Authorized [id number] Open 01/09/2025 01/09/2026 1 1 [facility] [employer] [facility] for visit Narrative* Auth/Cert Specialty Diagnoses / Procedures Referred By Luis grigsby Referred To Contact Diagnoses Urinary tract obstruction by kidney stone UTI (urinary tract infection) Ureteral calculi Luis Felipe Delacruz MD [address] [facility] [place] [address] Phone: tel: fax: [facility] [email or web address] [address] [place] [address] Referral ID Status Reason Start Date Expiration Date Visits Re quested Visits Authorized [id number] [facility] [employer] [facility] N[facility]* Auth/Cert Specialty Diagnoses / Procedures Referred By Contac t Referred To Contact Diagnoses Hydronephrosis, left Luis Felipe Delacruz MD [address] [place] [address] Phone: tel: fax: [facility] [email or web address] [address] [place] [address] Referral ID Status Reason Start Date Expiration Date Visits Re quested Visits Authorized [id number] 1 1 [facility] [email or web address] Summary Purpose Family History Relationship Condition Age [...] prosecute any alcohol or drug abuse patient.[facility] Reason for Visit (unrecogniz ed section and content) Reason Onset Date Comments No Show 09/04/2022 No show Reason Comments Gynecologic Exam Reason Comments Suspicious Skin Lesion Reason Comments Suture / Staple Removal Care Teams (unrecognized sec tion and content) Supervisor Building Maintenance Relationship Specialty Start Date End Date Domingo Snyder MD [address] [place] [address] Referring Family Medicine 09/01/22 Team Status: Active [...] December 02, 2024 End: December 02, 2024 Supervisor Building Maintenance Relationship Specialty Start Date End Date Domingo Snyder MD [address] [place] [address] PCP - General Family Medicine 01/05/25 Supervisor Building Maintenance Relationship Specialty Start Date End Date Domingo Snyder MD [address] [place] [address] PCP - General Family Medicine 01/05/25 Supervisor Building Maintenance Relationship Specialty Start Date End Date Domingo Snyder MD [address] [place] [id number] PCP - General Family Medicine 01/05/25 Team Status: Inactive Member Role Status Dates Javi Tanner PA-C Attending Provider Active Start: January 21, 2025 End: January 21, 2025 Supervisor Building Maintenance Relationship Specialty Start Date End Date Domingo Snyder MD [address] [place] [address] PCP - General Family Medicine 01/05/25 Supervisor Building Maintenance Relationship Specialty Start Date End Date Domingo Snyder MD [address] [place] [address] PCP - General Family Medicine 04/13/23 Supervisor Building Maintenance Relationship Specialty Start Date End Date Domingo Snyder MD [address] [facility] [place] [address] PCP - General Family Medicine 04/13/23 Supervisor Building Maintenance Relationship Specialty Start Date End Date Domingo Snyder MD [address] [facility] [place] [address] PCP - General Family Medicine 04/13/23 Supervisor Building Maintenance Relationship Specialty Start Date End Date Domingo Snyder MD [address] [facility] [place] [address] PCP - General Family Medicine 04/13/23 Supervisor Building Maintenance Relationship Specialty Start Date End Date Domingo Snyder MD [address] [place] [address] PCP - General Family Medicine 04/13/23 Team Status: Inactive Member Role Status Dates Vj Fraire DO Attending Provider Active Start: May 05, 2025 End: May 05, 2025 Supervisor Building Maintenance Relationship Specialty Start Date End Date Domingo Snyder MD [address] [place] [address] PCP - General Family Medicine 04/13/23 Supervisor Building Maintenance Relationship Specialty Start Date End Date Domingo Snyder MD [address] [place] [address] PCP - General Family Medicine 04/13/23 INFORMATION SOURCE (unrecogn ized section and content) DATE CREATED AUTHOR 09/06/2022 [facility] DATE CREATED AUTHOR AUTHOR'S ORGANIZ ATION 02/19/2023 [facility] DATE CREATED AUTHOR AUTHOR'S ORGANIZ ATION 12/06/2023 [facility] DATE CREATED AUTHOR AUTHOR'S ORGANIZ ATION 10/05/2024 [facility] DATE CREATED AUTHOR AUTHOR'S ORGANIZ ATION 01/16/2025 [facility] DATE CREATED AUTHOR AUTHOR'S ORGANIZ ATION 02/03/2025 [facility] DATE CREATED AUTHOR AUTHOR'S ORGANIZ ATION 04/05/2025 [facility] DATE CREATED AUTHOR AUTHOR'S ORGANIZ ATION 05/09/2025 [facility] DATE CREATED AUTHOR AUTHOR'S ORGANIZ ATION 05/16/2025 [facility] EPIC Goals (unrecognized section and [...] mL IV syringe (COMPLETED) 2,000 mg, IntraVENous, CLINICAL TRIALS DATA COORDINATOR TO O.R., On 01/22/25 at 0930, For [...] Tamy Autohold - Reason: Unreviewed Transfer Orders)1027 ([facility] Unhold - Provider: Anastasiya Coates RN)1900 (Due - Provider: Sudeep Ordonez [facility]) enoxaparin (LOVENOX) injection 40 mg 40 mg, [...] Comment: Pt. educated on importance and intent)0928 ([facility] Hold - Provider: [facility] [employer] - Reason: Unreviewed Transfer Orders)1027 ([facility] Unhold - Provider: Anastasiya Coates RN) [...] (Given - Provid er: Anastasiya Coates RN)927 ([facility] Hold - Provider: Tamy Autohold - Reason: Unreviewed Transfer Orders)1027 ([facility] Unhold - Provider: Anastasiya Coates RN) Continuous Medication Order 01/20/2025 01/21/2025 01/22/2025 0.9 % sodium chloride infusion (CANCELED) IntraVENous, at 150 mL/hr, CONTINUOUS, Starting on 01/22/25 at 0015 0002 (New Bag - Prov ider: Aundrea Beltre RN)0557 (New Bag - Provider: Aundrea Beltre, FELA)0928 ([facility] Hold - Provider: [facility] [employer] - Reason: Unreviewed Transfer Orders)1027 ([facility] Unhold - Provider: Anastasiya Coates RN) PRN Medication Order 01/20/2025 01/21/2025 01/22/2025 acetaminophen (TYLENOL) suppository 650 mg(Linked Group 1) 650 mg, Rectal, EVERY 6 HOURS PRN, Starting on 01/21/25 at 2346, Until Discontinued, Pain Mild (1-3), allowed for higher pain score per patient request, Fever, For temp greater than 100.4 F (38 C), Administer if oral route cannot be used. 09 ([facility] Hold - Pro vider: [facility] [employer] - Reason: Unreviewed Transfer Orders)102 ([facility] Unhold - Provider: Anastasiya Coates RN) acetaminophen (TYLENOL) tablet 650 mg(Linked Group 1) 650 mg, Oral, EVERY 6 HOURS PRN, Starting on Sat 4/25 at 2346, Until Discontinued, Pain Mild (1-3), allowed for higher pain score per patient request, Fever, For temp greater than 100.4 F (38 C), Maximum dose of acetaminophen is 4000 mg from all sources in 24 hours. 927 ([facility] Hold - Pro vider: [facility] [employer] - Reason: Unreviewed Transfer Orders)102 ([facility] Unhold - Provider: Anastasiya Coates RN) [...] Patients with CrCl less than 30ml/min 927 ([facility] Hold - Pro vider: [facility] [employer] - Reason: Unreviewed Transfer Orders)1027 ([facility] Unhold - Provider: Anastasiya Coates RN) [...] Anastasiya Coates RN)0928 ([facility] Hold - Provider: [facility] [employer] - Reason: Unreviewed Transfer Orders)1027 [...] specifically ordered. 0104 (Given - Provid er: vIory Arellano)0424 (Given - Provider: Aundrea Beltre RN)0832 (Given - Provider: Anastasiya Coates RN)0928 ([facility] Hold - Provider: [facility] [employer] - Reason: Unreviewed Transfer Orders)1027 ([facility] Unhold - Provider: Anastasiya Coates RN) ondansetron (ZOFRAN) injection 4 mg(Linked Group 3) 4 mg, IntraVENous, EVERY 6 HOURS PRN, Starting on 4/5/25 at 2346, Until Discontinued, Nausea, Vomiting, Administer if oral route cannot be used. 0001 (Given - Provid er: Aundrea Beltre RN)0554 (Given - Provider: Aundrea Beltre RN)0928 ([facility] Hold - Provider: [facility] [employer] - Reason: Unreviewed Transfer Orders)1027 ([facility] Unhold - Provider: Anastasiya Coates RN) ondansetron (ZOFRAN-ODT) disintegrating tablet 4 mg(Linked Group 3) 4 mg, Oral, EVERY 8 HOURS PRN, Starting on 4/5/25 at 2346, Until Discontinued, Nausea, Vomiting 0001 (See Alternativ e - Provider: Aundrea Beltre RN)0554 (See Alternative - Provider: Aundrea Beltre RN)0928 ([facility] Hold - Provider: [facility] [employer] - Reason: Unreviewed Transfer Orders)1027 ([facility] Unhold - Provider: Anastasiya Coates RN) oxyCODONE (ROXICODONE) immediate release tablet 2.5 mg(Linked Group 4) 2.5 mg, Oral, EVERY 4 HOURS PRN, Starting on 4/5/25 at 2346, Until Discontinued, Pain Moderate (4-6), allowed for higher pain score per patient request 0000 (See Alternativ e - Provider: Aundrea Beltre RN)0928 ([facility] Hold - Provider: [facility] [employer] - Reason: Unreviewed Transfer Orders)1027 ([facility] Unhold - Provider: Anastasiya Coates RN)1053 (See Alternative - Provider: Anastasiya Coates RN) oxyCODONE (ROXICODONE) immediate release tablet 5 mg(Linked Group 4) 5 mg, Oral, EVERY 4 HOURS PRN, Starting on Sat 4//25 at 2346, Until Discontinued, Pain Severe (7-10) 0000 (Given - Provid er: Aundrea Beltre RN)0928 ([facility] Hold - Provider: [facility] [employer] - Reason: Unreviewed Transfer Orders)1027 ([facility] Unhold - Provider: Anastasiya Coates RN)1053 (Given - Provider: Anastasiya Coates RN) polyethylene glycol (GLYCOLAX) packet 17 g 17 g, Oral, DAILY PRN, Starting on Sat 4/25 at 2346, Until Discontinued, Constipation, First line therapy for constipation 0928 ([facility] Hold - Pro vider: [facility] [employer] - Reason: Unreviewed Transfer Orders)1027 ([facility] Unhold - Provider: Anastasiya Coates RN) [...] dilute if GI adverse effects occur. 927 ([facility] Hold - Pro vider: [facility] [employer] - Reason: Unreviewed Transfer Orders)102 ([facility] Unhold - Provider: Anastasiya Coates RN) [...] half and each half swallowed separately. 927 ([facility] Hold - Pro vider: [facility] [employer] - Reason: Unreviewed Transfer Orders)1026 ([facility] Unhold - Provider: Anastasiya Coates RN) [...] with CrCl less than 30 mL/min. 927 ([facility] Hold - Pro vider: [facility] [employer] - Reason: Unreviewed Transfer Orders)1027 ([facility] Unhold - Provider: Anastasiya Coates RN) [...] Balwinder Ashton RN)1440 ([facility] Hold - Provider: [facility] [employer] - Reason: Unreviewed Transfer Orders)1744 [...] Balwinder Ashton RN)1440 ([facility] Hold - Provider: [facility] [employer] - Reason: Unreviewed Transfer Orders)1744 ([facility] Unhold - Provider: Balwinder Ashton RN) 1203 (Given - Provider: Maryam Avila) ondansetron (ZOFRAN-ODT) disintegrating tablet 4 mg(Linked Group 1) 4 mg, Oral, EVERY 8 HOURS PRN, Starting on Julia 01/26/25 at 1726, Until Discontinued, Nausea, Vomiting 0806 (See Alternative - Provider: Balwinder Ashton RN)1440 ([facility] Hold - Provider: [facility] [employer] - Reason: Unreviewed Transfer Orders)1744 [...] or Central Line = 20 mL/lumen 1440 ([facility] Hold - Provider: Tamy Autohold - Reason: Unreviewed Transfer Orders)1744 ([facility] Unhold - Provider: Balwinder Ashton RN) [...] BE BASED ON THE PRIMARY CLINICAL RECORDS. [employer] provides no warranty or guarantee of the accuracy or completeness of information in this document.
--- OUTSIDE RECORDS SUMMARY | 2025-06-23 07:18 | XMS_ITS | Encounter Summary ---
Author Organization [facility] Address [address] [place] [address] Care Team Providers Care Car Worker Helper Name Role Phone Ignacio Das MD Primary Care Provider [phone] Encounter Details Date Type Department Care Team ([facility] Contact Info) Description 04/30/2023 Abstract [facility] [address] [facility] [place] [place] [phone] Jefferson Gibbs DO [address] [place] [address] Social History Tobacco Use Types Packs/Day Years [...] Upcoming Encounters Date Type Department Care Team ([facility] Contact Info) Description 04/09/2026 9:00 AM EDT Office Visit [place] [facility] [address] [place] [phone] Jefferson Gibbs DO [address] [place] [id number] 05/29/2026 1:15 PM EDT Office Visit [facility] [address] [place] [address] Alejandra Leiva MD [address] [facility] [address] [place] [address] documented as of this encounter Visit Diagnoses Not on filedocumented in this encounter Care Teams Car Worker Helper Relationship Specialty Start Date End Date Ignacio Das MD [address] [place] [address] PCP - General Family Medicine 04/13/23 documented as of this encounter
--- OUTSIDE RECORDS SUMMARY | 2025-06-23 07:18 | XMS_ITS | Encounter Summary ---
Author Organization [facility] Address [address] [place] [address] Care Team Providers Care Brush Sander Name Role Phone Ignacio Das MD Primary Care Provider [phone] Encounter Details Date Type Department Care Team ([facility] Contact Info) Description 05/06/2023 Abstract [facility] [address] [facility] [place] [phone] Jefferson Gibbs DO [address] [place] [address] Social History Tobacco Use Types Packs/Day Years [...] Upcoming Encounters Date Type Department Care Team ([facility] Contact Info) Description 04/09/2026 9:00 AM EDT Office Visit [place] [facility] [address] [place] [phone] Jefferson Gibbs DO [address] [place] [id number] 05/29/2026 1:15 PM EDT Office Visit [facility] [address] [place] [address] Alejandra Leiva MD [address] [facility] [address] [place] [address] documented as of this encounter Visit Diagnoses Not on filedocumented in this encounter Care Teams Brush Sander Relationship Specialty Start Date End Date Ignacio Das MD [address] [facility] [place] [address] PCP - General Family Medicine 04/13/23 documented as of this encounter
== END 2025-06-23 07:15 | disposition home or self-care (01) ==
LOC: US 07:14
PROVIDERS: PCP Family Medicine; Visit Provider Family Medicine
DX: R10.9 Unspecified abdominal pain (principal); M54.12 Radiculopathy, cervical region; N20.0 Calculus of kidney
CPT/HCPCS: 76700

== ENCOUNTER 2025-07-08 16:38 | Emergency (ER) | payer OTHER, SELFPAY ==
[2025-07-08] VITALS (10 sets, daily range): BP systolic 134–142; BP diastolic 93–100; PULSE 80–96; TEMP 36.6; O2SAT 82–98; BMI 28.2
--- OUTSIDE RECORDS SUMMARY | 2025-07-08 16:44 | XMS_ITS | CCD ---
Author Organization [facility] CliniSysd Care Team Providers Care Teleprinter Name Role Phone Domingo Snyder MD Unavailable DANIEL MONTGOMERY Attending Unavailable DOMINGO SNYDER Referring Unavailable Domingo Snyder Primary Care Physician [phone] [address] ., DR LANE Primary Care Unavailable [...] Unavailable BERNIE ., DR TOLBERT Attending Unavailable HOLSTEIN, DR GLEN Alford Consulting Unavailable BERNIE ., [...] Unavailable MD Domingo Snyder Primary Care Provider [phone] MD Arnulfo Aviles Admit Provider MD Arnulfo Aviles Attending Provider Domingo Snyder MD Primary Care Provider [phone] Domingo Snyder MD Attending Provider ADONIS GUERRA Referring Unavailable DOMINGO SNYDER Primary Care Unavailable Domingo Snyder MD Primary Care Provider [phone] Domingo Snyder MD Primary Care Provider [phone] Domingo Snyder MD Attending Provider Javi Tanner PA-C Attending Provider [phone] DOMINGO SNYDER Primary Care Unavailable JAVI TANNER [...] Unavailable Domingo Snyder MD Primary Care Provider [phone] Vj Fraire DO Attending Provider Domingo Snyder [...] August 16, 2022 11:38am 168 hr estradiol 0.91550 mg/hr transdermal system (14 sources) Estrogen Start: [...] as needed in the evening. 07/17/2023 Active Haivana Nakya (No Known Home Meds) (4 sources) Start: 04-08-2024 Haivana Nakya (No Kn own Home Meds) Active April 07, 2024 11:00pm Start: 04-08-2024 Haivana Nakya (No Kn own Home Meds) Active April [...] # 30 tab(s), Refills(s) 3, Pharmacy: [facility]/pharmacy #[id number], 168, cm, 03/20/23 10:32:00 EDT, [...] 04-10-2025 Episodic Other aftercare (1 source) Other retirement (current) drug therapy; Translations: [OTH OWNER SPA DIRECTOR CURRENT DRUG THERAPY] Onset: 02-18-2023 Episodic Other aftercare (1 source) group home (current) use of oral hypoglycemic drugs; Translations: [OWNER SPA DIRECTOR USE ORAL HYPOGLYCEMIC DX] Onset: 02-18-2023 Episodic [...] 6.0 ml Estimated blood loss: 1.0 ml [facility] Complexity: Intermediate Final length (cm): 4.2 [...] bleeding, or complications. Dressing type: pressure dressing [facility] No Panel InformationOrdered By: Falguni Morris on 05-15-2025 [facility] Urine Cultureon 05-05-2025 Bacteria identified Cx Nom (U) ORGANISM: Citrobacter freundii complex (O:CITFRC) [place] Count 75,000 Aerobic ANASTASIA Charge (NMIC56) ---- [...] PERFORMED BY: [facility] [address] [place] [address] PATHOLOGIST COMMUNITY OUTREACH WORKER CALLUM ALAV M.D. Normal [facility] Comment on above: Performed By: #### C UU #### [facility] [address] [place] [address] [place] IGP,APTIMA HPV,AGE GDLNon AGE GDLN ACOG TESTING Note . [facility] Comment on above: TESTS RESULT FLAG UN ITS REF RANGE LAB Clinician Provided Cytology Information Source.............Vagina No. of containers..01 ThinPrep Vial Age Algo ACOG Radha... FLAG LEGEND: L-Low Normal,H-High Normal,LL-Alert Low,HH-Alert High <-Panic Low,>-Panic High,A-Abnormal,AA-Critical Abnormal Performed at: 01 =[address] [place] [address] Shereen Caal MD, HPV APTIMA Negative Negative [facility] Comment on above: This nucleic acid am plification test detects fourteen high- risk HPV types (16,18,31,33,35,39,45,51,52,56,58,59,66,68) without differentiation. Performed at: =[address] [id number] Director Service: Shereen Caal MD, Phone: [phone] Performed at: [address] [id number] Director Service: Shereen Caal MD, Phone: [phone] IGP, APTIMA HPV, RFX 16/18,45 Note Abnormal . [facility] Comment on above: TESTS RESULT FLAG UN ITS REF RANGE LAB DIAGNOSIS: [A] 02 EPITHELIAL CELL ABNORMALITY. ATYPICAL SQUAMOUS CELLS OF UNDETERMINED SIGNIFICANCE (ASC-US). Recommendation: [A] 02 Suggest follow up as clinically appropriate. Specimen adequacy: 02 Satisfactory for evaluation. Performed by: 02 Tamiko Barrow, Cylinder Press Operator Apprentice (ASCP) Electronically si... 02 Capri Boston MD, [...] <-Panic Low,>-Panic High,A-Abnormal,AA-Critical Abnormal Performed at: [address] [address] Shereen Caal MD, Interpretation and review of laboratory results Abnormal [facility] SPATULA-[facility] No Panel Informationon 04-10 Type of biopsy: [facility] Informed consent: discussed and consent obtained Informed [...] sent for H&E Number of sutures: 2 [facility] [employer] Type of biopsy: tangential Informed consent: discussed [...] taken Amount of lidocaine used: 1.0 cc [facility] Outside Recordson 04-03-2025 Outside Records [id number] #[facility] Coding Summaryon 03-23-2025 Coding Summary HTMLBase 64 UheqdbuzXKq8bSt+PGhlY WQ+OV1DYABuK75lqUPasM 2hZ5LGVKrGGhzcBZLOTDa RHnTdkcLkGP8lpNDeIWSv IC8+WG9qUCGiPpiltTOcn 4C3uGZ5E42kdo3aPEcqaP I3GZMnJdXgaljkb8wqwNk 6IDcuNmluOyBt FHEmaV73KEX9aA82Tw03d YLoeNOgy5akyZd5LrCnAG WwTMU9wAnsAFquu7XkBZB wM14nsGFpf3P8 ABSdqAervQWvEgXgrUE1z R4rTGmpddcma5toryhmKx x5xd17gIAje6A6zBI5N1W bolS2VHRzmMQz PsucgRSDeU8nnzags4egz cfvDrKzZEJrCHx9UPq1SK IwmJhmLfSsYB20RLF7XYR qrxKwZ7SlJFTw kLexAbX8n6X3Jb3IB2WUJ teaG9HFEDWGCTuroLA+PC 22dq30L2ZeIkvkBis4AVX kRJH5oSR5dC3z INRjQOgtf1N0cQI1S0Oac aCpsj1co5xyFPDeNXlzJ8 7wyDMoo4X5CHJvuVM0EZQ nqFjvOeEjtU04 Oyc+LJYtdNloi3FyXnmzs 0vos6xnbWm0SfwxDNFovs LqxCbuJOF2f3DdKy1yFDW afSF7vMV9zY3l OmEcBeW9PRdhT718LsFzm XJmMblwZ54dN8TvjEO+PH MmDnk4KWOgvKbjPG6xX8H hZGRpbmctbGVm vMpvJX5vQXErulozLKOcu J2cJCTtF7h6VhCkYvB9RM jhB4NnGOEanbfaFb54hC8 fGsWbFsE0RCit J9OosiV2ZFJsrWWhRXzeG WL8J58lw2L7BNZxUBXbNV L1nBB3mA1biJwfyedbhFD mdDsgdmVydGlj ILrkABglF906WGVieJjzN kNvZGluZyBEYXRlOiAgMD YvMDUvMjAyNTwvdGQ+PHR cSLC3rFiyORNt nXYfQIdpWs5zlCohvRlmI F1mLNMofzxzTSParV6zPG MykZAdwWnzLL2nJSPrwvs af513MjCbBBC6 DMNwlDWtB7DttN5bEoEdS JVeASGnY0AqfWQrAHpvF2 42HDxuJfE8FBMubqWxD7V sLWFsaWduOiB0 x3B5Cx9Aa5SqmanpM8Jjg YEiXpZkVovoYWe8F2TzIt wvdHI+HH88ZTLlVI60EZy 9YGR3gZkiJMdo IRAzG9ZxmR9eGoRgBATzM GRkOyc+PHRhYmxlIHdpZH RoPScxMDAlJyBzdHlsZT0 eEf1tEJDkUFLg iVinqOAlJbWok7wkTHWbX DiiJX1mkPavR5DquYN9WC Mxk6b4Ot66H87cW6SbzCT +GHPgzBF1bWM8 eE7lRaOcZxD2UYnhT435A zNblUGaSpcgv5bnp0zslP f6UoH6PHXkemWzxUtyHPG 6h4EmAt21P83h IHdpZHRoPSIxNSUiIHZhb Szlxi4agY2mNj2+PGNvbC X7bUN3wE3sXmDoAjN0UFu fP168XhWmcOUl Pwtun6oor7eekPh1AbJaM TOxntIdoGruDZM4b9SlHj 69S8BkvGfoi7SyMxf3nr8 7nXGyb0K7nPR9 X8SeMNAhrpfgsHQehYuhH Q9qJRBozankJFAyvK3zMX ZuA7p0LcFlNfC8LPrmT9M qyqQ6QJAqpEAl XCJhtCEMaJ1pqqris3hzw apyPgWiNVWpMYv8CJz4LT IylEczXeDiFNW5VzT1QMO 2cFMivU3oqOyp tetoaP4xZal+CVS6uEEdg QRYJA0qCvcnmMT+PHRkIH I0yCybWMeqTWOljG0xGOR oC0e4SyDwAsS4 OCthI1JvkiS5VHQywBMfS GYlfVODqU3vogror2zpte beBnZuKSHfLIr9QKj9GBZ saWduOiBsZWZ0 BmL6SMG5tVIrxN0cqQxan zcvpD3lZmm+QmlydGggRG D9EYa1Y9OhZsf9ZHKtlSx jXD6puSOjFVli Dn2tfAxxoZxrNU1jCLLdh uhco652XzSix2ryIBEvgQ GbFEgoQZC6L20ce6J9QLT yNBAbLSR1nYD3 gQ0brGqmjygekVXmfGrke nGxgDbgLLxxUBvoZ538JZ FznMdhYqHrTUj7N0GfWgp 1GZMtiWmcEI3i uZTcELlqUa6iwWxuaTeoT T6sBEUqwecgc053VyEqh5 emLIPzrOPfKClkDZR3B70 zv5C0XKCjCPFt BVQ7mZP8aH4rnPbtffmld GVmdDsgdmVydGljYWwtYW iaT243IGYbuJosZjSvuZs 1H4JrLtm1ZZPf yEwePW6fuRCoPIvsSp5mb RrhoEblBL4rKSYhywyqt1 84XlXrf8icGEQcaISsOCw bHAE1Z40jw6A1 GWDmRVEsUZT5rFC9eZ4ye GlnbjogbGVmdDsgdmVydG ncUQaqHPurO606GHJcfMv nPlBhdGllbnQg CQlyBEb9B2CwIrzokWD+P B82RFYvIX97yBMlqSNlo0 eklDu9McQiZNYaFTG4pWu vYPuxk3EmGBXr F50boGTxn8D8YRYxqXkba ZGzPdPucVV1dK3vILkyet bjl0vlbkurGxcvm5cjiw5 7nF25B75tSKmz ZHRoPSIzMCUiIHZhbGlnb i5paQ3iUp0+OETspHV4dC S0lC5eFMDoMuH1KHxkI96 9InRvcCIvPjxj l6itk0oboNr7YsE2MCOcs zIohAqwEGJ6s6WwFe99N7 9sIHdpZHRoPSIyMCUiIHZ yySbdgw3gjW0s Ii8+XAIlkSQ2fPH4qR9xW wDlHkK6ITmhD371JpVboT WkHyuqP69fG6BpnYX+PHR dIvq3RSGpzAmo HJ5koUVtFKcdPy3yDVD5V aSfYnGzPEcjN4RtQWNsid oxelgukVX5DJJkUQRwzO6 1Py6snMvzJBCy jGYTaX9cihixx1jmlzddU tUpMZLiRLa2JLy1XUWiuO koKpAdSTX3GjZ1DIK2tKG pqR4spHsqjmzg nD2jP2JzSFOdqawcVl86p P2tRcLoIlW0RXtsNhd+TU 8EBLvdW2CMFJSVLFSFC2U PQY36B9FkUmq4 CVLigVhlMV4eqDAvDQbaC c0hkJvbrDfaLE3cEYIifh rsYKQdyO3fDUJanONtcQx vVJ2cTGDvepxs w190KpCvMWM2JIZceZPjK 4DshH0rYvZpFUMaTPDmE5 CgmZGxHHmhC684EAulOmO 9VSNfbrOsN9Ht GJVsaIuyIsA2n3D3Ls9jC K5tSu6qJYctUL40QT04gN Sxh0C5mIH3J9ZlAOZazzs vkkxkiNS1NJVl EZWkaY25iJAsUYwrBn2cq 8T5d368BPHlQZHngC84Jo 5miWyeOICmtWUMlL0yaky hn2abidhdExJj WCOmAKn5DPp9GOElsYahX gAgPGD6LrZ9MWP9vHLqeM 3siLxxtwhniE2dUkl+MzM rYQQgugJ9T3Lk Acy1WAEwrNwzOL6jhGQsN EhrQu6weYkkyXwlWN0hCW LfbsbqWDEbgT9jZOZqbTM hnZdzWU6pFNUy tvrjr366DtNpVRE0BVVcs WIyT6YxqX0bKyJiRHNmYV IjM0XkiITbDKutH652NGk iUmI7JORsdhPi D4TwOBGyiKlkXxC1x9A7Z h1PXF4QGPF9N0DbHnz2HW XxhDxnNS0gfKWuLYgdEn1 xqMjxcZkgHN5f QOPjikvcKCQxsM4jFRYpg CLzyOuvJZ9fURLkpfpbx0 23GtJcLWZ2QERkpVUhR0B dcS5lRdRrIVJc QADsQ3OmoJUoZDboA822U BmvOiF3OMZnjiTuU7CcXZ SlhIzlJnI2l3T9Pk4DGIr vdGQ+VF76pd70 R5RlMlqnXba9PALwPXM5b MW6xU3cQWSgXMrmk9C9kJ G7P0BiqoAkvq8xn9mtVXB ePHolY07ldCJl o5B1MNUrlFL0PWWevEvtH kGqeY15Emx+PGNvbGdyb3 AmFrmcm7alr3peaLb3RbI wJSIgdmFsaWdu TWE1u8GtAj14M09gGXqoU HRoPSIzMCUiIHZhbGlnbj 0hzC0pTp6+RDZwoBC2yPL 2sY3zKvKuEgO3 XTefH515DdCznDLmGzrmc 3kek7cqzVv0ZtSeQXYgax HduHqiWDA7s8GrGp43B5K xkClyg7BiDyh6 eh73oZMfu6D8sYU2B2PgC YVhunvjhZFcnDgdGX9lYF DbtvifGUDdpJ0sSXHrH8w 2ChXzPlN6UDrw X2IuloK4LNTkxZMrURCby XFXkH9thsxxa6mlayngSj TvSYTuYCp8ZHj4QSSjtGo rIkMnEOQ4QxQ8 RQC8xUNwtJ5hpGizfwxjp G9wOyc+MBd2q1febWJhTN 6zmNM5LM47QW37xBOyq7O 6oXJ0T4SzTJSi xfavcwfmqYB9OFTuURYfm C90Vm7viBybCt2iBMMoTP N0MABbzQGuP5SfaY8tTeB aYHXpPTEwF5Lo wZInLYzjX797UGtfPvF7Q FFicjXsO7YvIPBboElkLa K0q2D9Mv7HLS60LG22PK7 8jTUbj6H6wYU2 E8ZaXYGyvojrngfqiRT2L YWwQHVdyU38Qw0lqWkhGu 9bKZHpEQX5GQKsyWVhX0K kcE1xBnXwHEIj RVFpC0FrjRCsXZgcW045M QvwYjW3TTKukkBxL9HgFP KrxRqvXaW1l6Q6El1SFn0 8VS40TG76zZMn p8A1wNM9M3BaWKKytdkpi tjsbPK9XKIlYLOzuM53Qi 6jnPozEa7wDBKrQAA8KJN wdRNtT5AmlF0q PhJvSPAeEANpM7OetSScG JkgG543HFetDkH3NSDnnz NgS7FzBNBthTctYfL4r9F 3Qb4HNIfmccn9 T8VlSgdsuWB+QP86KRXvR P22rXPleMMda9xhqFe9Qk OmDXHbLLV4fDmeXUvvh3F eBFSxZ78kkRLm c2U (more content not included)... [facility] Provider Orderson 03-20-2025 Provider Orders [id number]#1. [id number] [facility] C Urineon 03-18-2025 C Urine >100,000 [...] <=2 Verified Tri/Sulf S <=2/38 Verified Normal [facility] Comment on above: Performed By: #### 6 [id number] #### [facility] (DEFAULT) [address] [place] [address] Provider Orderson 03-16-2025 Provider Orders [id number]#1. [id number] Normal [facility] Cult,Bloodon 02-01-2025 Cult,Blood Specimen Description .BLOOD Special Requests Culture NO GROWTH 5 DAYS Report Status FINAL 02/01/2025 [facility] Comment on above: Performed By: #### B C #### [place] [id number] Director Service: Alejandro Salazar MD Cult,Blood Specimen Description .BLOOD Special Requests RIGHT HAND 1ML Culture NO GROWTH 5 DAYS Report Status FINAL 02/01/2025 [facility] Comment on above: Performed By: #### B C #### [address] [address] Director Service: Alejandro Salazar MD Coding Summaryon 01-30-2025 Coding Summary HTMLBase 64 SqcgtzmiSIr6oAu+PGhlY WQ+XY9JNDJcU83anWBzwQ 8rY7JLRFqSTzvgVMDVLQg YXaVybsEgIM6hmCDoQNVf IC8+DU7zTQHqKuthaKJxp 7V1sYY7M07lbf2qWLnklI N9QXDmYsXweuqwf5wawBl 6IDcuNmluOyBt XZSnlJ01KMK5rK65Vr73m HFjzGJkw7cbvMf4GeIrHK XsKJB5xBanMOpgd0HmUKB jU90rlUVjh1N4 YDEwfRepdWTiQpJpfVG6f Z0mNLzovshyy1nxatebCn r6tn40yWWmr3S8rNI7Y4W fieW7OQDqzFZf PvfwnSCGmQ4feicys4jtg zpzNuFsEOWsBRp4SQx1IE FzkHupEfUhMW03ZWN0JSF bcjPfB1IjNMKs dIcnUyH8m8T9Rp3NU0MHF aphA9JTTWDETRsweCO+PC 08dg79Z7MgRcllBmz5GLI kSWU1oVQ3dW2c MWFrXCafh1J3sWQ7L6Aor sAwqf5ml0btJXLbBRdrF4 7vfZWte2X3QCLutAD0USD zxAxgVtSuyA34 Oyc+MGVneZbcy0ZxHmlcl 4ood5enwVy3XcnpNIIoyr AfeGasGVW9c2BbLw1xOZN lxKW8cUE0bS8d TrPlGyK9SPbnJ137MuAvn IFgOwbvD35bW8UwvRH+PH XzXdz2SIZulGhbNC4xQ3R hZGRpbmctbGVm zTirKF0oAZRyxoqjWGQrk G8zHLPzP3v0OsTsKrC4YG uyR5PrJGDrryndIt29cO2 qDqTiXgT5CAnz S7HzacQ6YKFvoDZzIEceK GD3U10md0A9OIWxXRMrBE V2tMB1qO1xsExxizshtRS mdDsgdmVydGlj AInyWAhiC466YURckPotE kNvZGluZyBEYXRlOiAgMD QvMTQvMjAyNTwvdGQ+PHR bUMQ4fEovZBHy yWMhUAsfHb1xuNczlGcgH W9tIRYxhlmzXBOurG2jMZ CciKJquLozSR0aDUJtnfh vk352SvBaLZP7 GMXgyHAoT8KpsG1hBhPtH MDhPAWmR1SfrYEkURqrJ4 22UJcsQvK7OKLppfDiH2E sLWFsaWduOiB0 v8G6Wz0Fu1MqkqovB0Fdl FCeSgUvBsbhXGy0K4KkLa wvdHI+HL97WJUnQD33AFl 7JSW8bAonHGes BUIiI2XvhA1rQgAxJZAuI GRkOyc+PHRhYmxlIHdpZH RoPScxMDAlJyBzdHlsZT0 tYo9jMESkBEKe yIaazETfUqGxx9iyGTSkK TmsYL2ywNtbB9PehAZ4RN Bkc4b6Pd09Q08nX6ErqRJ +DPTfsXN8gNN8 nD9gPcKwDiD4AJiuR622U gDidFDfPvxro0ywj2xasG c9CpX7DXOhbnUidKtuMHD 6y9MjHb70Z87f IHdpZHRoPSIxNSUiIHZhb Xhryd0teY6aHd3+PGNvbC U4vIS8aM6zFjYsIyG7ADt dP912KrRdxKCb Ntlyv2cqd4poyBf9VqMfS LGuzeWwhYnsCWS3d1KvIm 75U1DitWurg1BeHfu8qu7 8sLHra9C3bOY8 E0TpHEQqfjojcCYjtTnwV Y0fXIZqyqhaFRXtuV7dBV HsI4y5IeIcLfF2CKrmR4H jxlU9SXOqtVEy PFOrnQSJnD7fegtjf2awh wjkCoSnGFFiVHc4CCp5WH KuuZojHfNbCPU1TfH2ZMH 0nZCdtX3sfAaf tktzmQ2pBzy+DGR6mREqv LVTGD2bYftfxOL+PHRkIH Q9eEwnKDjjCXNfyQ6bGDI vH7p5UdLvLxK3 HFvtY1SysqR1VSTaiSPpN JQplTKDsK7lijslj2lupg vpArNtAMPqQJa7JFv3MPE saWduOiBsZWZ0 XdJ9ZTZ2kBRhiM5tuCljg ggryV2cZui+QmlydGggRG D6FTr8Z1WbNxb7QSFinRf fSU7zyVLzCTqq Qk0btMajhErsFA3iJAKba yoxy177WaWjo2lsRGBeuD YlYAhkFEF3M54pu9I0KAE xHONdDFU8eGG3 sT2amMrdhvccgZTzoVznx hLvlBxhDApuJBkqD924YF XsoHweJoWdPUt6H9GkZmr 8KFSrvOzcPJ0g zCIiPKvgXk3jaLfpvJluE C4dQIPhgfeap427AiDqs9 ghBKEcbDXkCGmhGJW3R62 hl7I4BZMqOEPt UDL7wFI2oF6qvLhvjfeno GVmdDsgdmVydGljYWwtYW ubT521MKGyrRvcHqJrlTo 4A1NoHdu5TGGz hDbtVL6ehEZzZUxlJi7fs QexkSsoGE9uIAMewivir2 18VyVrm2soCCGtgOSeLMk yUMM7U34zq5S6 BABbFHYoDVJ3aHU5vO6xb GlnbjogbGVmdDsgdmVydG cvCWwmQPdkV443MSNieMv nPlBhdGllbnQg SNhbYOg1I2QyJjsskEQ+P C79PYIvIH19aMOtePZem6 bcvUl8KtYpAONsMJI7sNl gWYzzx8ZpYQMm X87eiQTee8J6ASXksVfgt FOkQxZsgCB8xR1sLZijbd ilg6najubbQrxcs9bgki4 1aN48G04hVFcr ZHRoPSIzMCUiIHZhbGlnb o4vnY6eOu9+TIPziFP0pM Q4dA6eXDFtCaP4BMskR32 9InRvcCIvPjxj d5vzk0opvIo4YgB2RLAgu qNocKvoIUM6p6TnTc51T0 9sIHdpZHRoPSIyMCUiIHZ dhSiwou4mrF8i Ii8+ETTksPZ2uLS1kA5pH bMwCkL7UQrmU539HzDiqE FiImtwB63mK8RtxVL+PHR xHvs2GKWrgUan OX0koZYtNMeqVu6lRAU4F vGgVtEpSZsgA5QjRLOael gngkouxBX8QUWoYFRlpB8 2Qx1pqSmrDFOe fLXQuD3jxxnuv6yqmqdnH qPeWHBmLCr7MSu2IGKcsY dlKfZuMID4XwL8DHR2pDV lxT3diMtmcsav rY2dK2TmVJWfhtaeJb59b N6hWmLrGjC3YEhkAre+TU 4YGDbaL4FOBJJPBAHMT9P GUU03Y4JfEic4 KXXujBasNM9yrZRpDTqiI v2hmHfxyGvxPQ0mZLUkkg iuRTZywC3mJABnbUGzlEw fOT7sITWcgjlc f544UiBjZGD6PKPrkHLgN 9XugL1aKhVwMDCuZILrI2 VubFIvTKezW946UWzxZdL 5ZSFrxoBfY6Yh DBZvvWqlLcP3x3N6Mo0bU O4mOg1zIDzoAN61QL27yF Pmc6M8bIG7P2SnRPJurou tklxacWG2RHTa KDEbqD99jFDlLMyqTu5dx 6L7a689MKYmZSUkmM90Zz 7jeKhsIUMxwSHKrA9jrwf fe2xqmhkaHiWk NOKcFFg7DRn8SRYfwKfnN cEaWBC6YbK3KWE3aQIfcH 7jjEgvbudxqS1gTbf+MzM sVZPywcH6V7Gh Agx8ZRGtlQqcCC1taQZuT OakCi9wwFnjgPirVI1vLE LowihyWILtjA6fBITssQR fpJvqCH4nPOAb xifad969HwGbGDV2NFUtd LGvR9XqkA6fFdXaGQUdDN PfI5OxtIHrRDddN783OEp dTkP5MSPkcaIl C1NfSDSzzYmrXrP8g6M1Z i5PMU5ELIR2E7XhTsn8QF PgsZdgFI2baMKgXAhmOb8 uvHmgiJdvEJ1o ICAqwsahCCYbqR9sJEQvu YWeeIotXM6uKVMzxkfvc4 83FqIhPUO0VFTywBDvJ9I noG1yHnRfGIUu VPSeB3WjiRNoATmdV219N JsyVnR9KRApnvWuF7TjRM McvUxfXrQ2y0A8Bp7HgYB cB2DcR7w4P8Rp PjwvdHI+JY92YCHxNI80u NDemMWwn0becAu5IgSjDY FmZMZ7hLdjPRjqp4EqFVK qT34awLZtg2C0 IGHcvGqynPJwIiOxzHO4s H8gHGhtfiiwn3tcwvzvLb rsc3otiw87zN19M03vTEx pZHRoPSIzMCUi SWCaaCtcco0rtE5xMn2+P CGovEO3gYE3tP5eKzFbNx F4XFjlD747RxUswSGoFib gd1yxz1idqBw4 YrGnXCBckfCxiCjnOGK7y 2RnWl47R95bBZceLIEdDS CgBEWgPWUyuMwipi5fwO1 wIi8+HL9qg0qx vb25aS25lHV+BETjEZW7o TjgKGaqEXKmbK9bFSbzYa P2RDEyKdWolI17mWMzNOu jFx0rtZoaoXfz PM4ePLUikclsv521AlGnx 9gzUIJkqAXpRDtcATM3N0 4wb0B3HKMxEVScSGK8kJB 8zN2xePyhkddr bGVmdDsgdmVydGljYWwtY GzvZ453BUDumEorQnJtqM FnV8tjcqSEBS4mSemuhWZ +JRNpAXF8iDnr PQieYQOylT2ePFWiP7z8O xIjZvP3DLfiJ7XitpL8GC NxoSQfXWLwqMYLsA7hscb fs9zyqlukZcKl QLFbNOz4ZJx5XMYoiFaeS wVwQMY3UfS6BVC9uXTczE 6tcSqpsprxtD8lWhv+Rkl OOjwvdGQ+PHRk PGL6mYeeIObcOKJneE5eS JSpJ4h9QzGhBeJ1BCwwS3 TykeN8HUTwxNHiJRExuLA EsX1tdzbni4bb nkqyReRrGJErODx2CVo8N CEwbRjzJtKtDRB3PrT7DI Z6kXOfsK5sePkmipailN8 wOyc+TVJOOjwv dGQ+MNAzSGA8jQbaNPjsX OZlmK4uOJUaQ7p0KyVdMw N5UHpdX9CuejD1XJUxaRQ kNCFweJYReW7f rigdv7vigngqEoObGMKwT Ye6ENt1JCPhnUczXoWnRX V2IoM4TGO3hJIpbW3eiTc jhrcdnF6oQfs+ GYM9EBM3ZL46TC43U7RyM jwvdGFibGU+PHRhYmxlIH dpZHRoPScxMDAlJyBzdHl vBF4jTr5fBXWy LWN (more content not included)... Normal [facility] C Urineon 01-28-2025 C Urine Urine Culture ordere d as a result of parameters set on specific urine dip and urine microsopic results. Mixed skin, or urogenital daiana. Clinically insignificant [facility] Comment on above: Performed By: #### [id number], [id number] #### [facility] (DEFAULT) [address] [place] [address] Cult,Urineon 01-28-2025 Cult,Urine Specimen Description .BLADDER URINE FROM CYSTOSCOPY Special Requests Site: Urine Culture NO GROWTH Report Status FINAL 01/28/[address] [facility] Comment on above: Performed By: #### B MP #### [address] [address] Director Service: Alejandro aSlazar MD Culture, Urineon 01-28-2025 Microorganism identified Cx Nom (Unsp spec) NO GROWTH [facility] Service comment (Unsp spec) [Interp] Site: Urine [facility] Specimen Description .BLADDER URINE FROM CYSTOSCOPY [facility] Basic Metabolic Profon 01-27 Anion gap [Moles/Vol] 9 mmol/L Normal 9-16 [facility] Comment on above: Performed By: #### B MP #### [address] [address] Director Service: Alejandro Salazar MD Calcium [Mass/Vol] 8.3 mg/dL Low 8.6-10.4 [facility] Comment on above: Performed By: #### B MP #### [facility] [employer] [address] [place] [address] Director Service: Alejandro Salazar MD Chloride [Moles/Vol] 108 mmol/L High 98-107 [facility] Comment on above: Performed By: #### B MP #### [facility] [employer] [address] [place] [address] Director Service: Alejandro Salazar MD CO2 [Moles/Vol] 22 mmol/L Normal 20-31 [facility] Comment on above: Performed By: #### B MP #### [facility] [employer] [address] [place] [address] Director Service: Alejandro Salazar MD Creatinine [Mass/Vol] 0.7 mg/dL Normal 0.6-0.9 [facility] Comment on above: Performed By: #### B MP #### [address] [address] Director Service: Alejandro Salazar MD GFR/1.73 sq M.predicted among non-blacks MDRD (S/P/Bld) [Vol rate/Area] mL/min/{1.73_m2} Normal >60 [facility] Comment on above: Result Comment: These [...] secretion. Performed By: #### B MP #### [facility] [employer] [address] [place] [address] Director Service: Alejandro Salazar MD Glucose [Mass/Vol] 85 mg/dL Normal 74-99 [facility] Comment on above: Performed By: #### B MP #### [address] [address] Director Service: Alejandro Salazar MD Potassium [Moles/Vol] 3.9 mmol/L Normal 3.7-5.3 [facility] Comment on above: Performed By: #### B MP #### [facility] [employer] [address] [place] [address] Director Service: Alejandro Salazar MD Sodium [Moles/Vol] 139 mmol/L Normal 136-145 [facility] Comment on above: Performed By: #### B MP #### [facility] [employer] [address] [place] [address] Director Service: Alejandro Salazar MD Urea nitrogen [Mass/Vol] 11 mg/dL Normal 6-20 [facility] Comment on above: Performed By: #### B #### [facility] [employer] [address] [place] [address] Director Service: Alejandro Salazar MD Basic metabolic panelon 01-17 Anion gap [Moles/Vol] 9 mmol/L 9 - 16 mmol/L [facility] Calcium [Mass/Vol] 8.3 mg/dL Low 8.6 - 10. 4 mg/dL [facility] Chloride [Moles/Vol] 108 mmol/L High 98 - 10 7 mmol/L [facility] CO2 [Moles/Vol] 22 mmol/L 20 - 31 mmol/L [facility] Creatinine [Mass/Vol] 0.7 mg/dL 0.6 - 0.9 mg/dL [facility] Pharmacopeia Est, Glohayley Lundt Rate - PINF [facility] Comment on above: These results are not [...] [Mass/Vol] 85 mg/dL 74 - 99 mg/dL [facility] Interpretation and review of laboratory results Abnormal [facility] Potassium [Moles/Vol] 3.9 mmol/L 3.7 - 5.3 mmol/L [facility] Sodium [Moles/Vol] 139 mmol/L 136 - 145 mmol/L [facility] Urea nitrogen [Mass/Vol] 11 mg/dL 6 - 20 mg/dL [facility] CBC auto differentialon 01-17 Basophils (Bld) [#/Vol] 0.04 10*3/uL [facility] Basophils/100 WBC (Bld) 1 % 0 - 2 % [facility] Eosinophils (Bld) [#/Vol] 0.14 10*3/uL [facility] Eosinophils/100 WBC (Bld) 4 % 1 - 4 % [facility] Erythrocyte distribution width (RBC) [Ratio] 12.6 % 11.8 - 14.4 % [facility] Hematocrit (Bld) [Volume fraction] 34.2 % Low 36.3 - 47.1 % [facility] Hemoglobin (Bld) [Mass/Vol] 10.7 g/dL Low 11.9 - 15.1 g/dL [facility] Immature granulocytes (Bld) [#/Vol] [facility] Immature granulocytes/100 WBC (Bld) 0 % 0 [facility] Interpretation and review of laboratory results Abnormal [facility] Lymphocytes/100 WBC (Bld) 55 % High 24 - 43 % [facility] Lymphocytes/100 WBC (Bld) 2.11 % [facility] MCH (RBC) [Entitic mass] 27.1 pg 25.2 - 33.5 pg [facility] MCHC (RBC) [Mass/Vol] 31.3 g/dL 28.4 - 34.8 g/dL [facility] MCV (RBC) [Entitic vol] 86.6 fL 82.6 - 102.9 fL [facility] Monocytes/100 WBC (Bld) 9 % 3 - 12 % [facility] Monocytes/100 WBC (Bld) 0.35 % [facility] Neutrophils/100 WBC (Bld) 31 % Low 36 - 65 % [facility] Nucleated RBC/100 WBC (Bld) [Ratio] 0 % 0.0 per 100 WBC [facility] Platelet mean volume (Bld) [Entitic vol] 9.1 fL 8.1 - 13.5 fL [facility] Platelets (Bld) [#/Vol] 238 10*3/uL [facility] RBC (Bld) [#/Vol] 3.95 10*6/uL 3.95 - 5.1 1 m/uL [facility] Segmented neutrophils/100 WBC (Bld) 1.21 % Low [facility] WBC other (Bld) [#/Vol] 3.9 [facility] CBC with Diffon 01-27-2025 Abs. Basophil 0.04 k/uL Normal 0.00-0.20 [facility] Comment on above: Performed By: #### B MP #### [address] [address] Director Service: Alejandro Salazar MD Abs.Imm.Granulocyte <0.03 Normal 0.00-0.30 [facility] Comment on above: Performed By: #### B MP #### [place] [address] Director Service: Alejandro Salazar MD Abs.Neutrophil (Seg) 1.21 k/uL Low 1.50-8.10 [facility] Comment on above: Performed By: #### B MP #### [place] [address] Director Service: Alejandro Salazar MD Basophils/100 WBC (Bld) 1 % Normal 0-2 [facility] Comment on above: Performed By: #### B MP #### [place] [address] Director Service: Alejandro Salazar MD Eosinophils (Bld) [#/Vol] 0.14 10*3/uL Normal 0.00-0.44 [facility] Comment on above: Performed By: #### B MP #### [address] [address] Director Service: Alejandro Salazar MD Eosinophils/100 WBC (Bld) 4 % Normal 1-4 [facility] Comment on above: Performed By: #### B MP #### [address] [address] Director Service: Alejandro Salazar MD Erythrocyte distribution width (RBC) [Ratio] 12.6 % Normal 11.8-14.4 [facility] Comment on above: Performed By: #### B MP #### [address] [address] Director Service: Alejandro Salazar MD Hematocrit (Bld) [Volume fraction] 34.2 % Low 36.3-47.1 [facility] [facility] Comment on above: Performed By: #### B MP #### [address] [address] Director Service: Alejandro Salazar MD Hemoglobin (Bld) [Mass/Vol] 10.7 g/dL Low 11.9-15.1 [facility] Comment on above: Performed By: #### B MP #### [address] [address] Director Service: Alejandro Salazar MD Immature granulocytes/100 WBC (Bld) 0 % Normal 0 [facility] Comment on above: Performed By: #### B MP #### [address] [address] Director Service: Alejandro Salazar MD Lymphocytes (Bld) [#/Vol] 2.11 10*3/uL Normal 1.10-3.70 [facility] Comment on above: Performed By: #### B MP #### [address] [address] Director Service: Alejandro Salazar MD Lymphocytes/100 WBC (Bld) 55 % High 24-43 [facility] Comment on above: Performed By: #### B MP #### [address] [address] Director Service: Alejandro Salazar MD MCH (RBC) [Entitic mass] 27.1 pg Normal 25.2-33.5 [facility] Comment on above: Performed By: #### B MP #### [address] [address] Director Service: Alejandro Salazar MD MCHC (RBC) [Mass/Vol] 31.3 g/dL Normal 28.4-34.8 [facility] Comment on above: Performed By: #### B MP #### [address] [address] Director Service: Alejandro Salazar MD MCV (RBC) [Entitic vol] 86.6 fL Normal 82.6-102.9 [facility] Comment on above: Performed By: #### B MP #### [address] [address] Director Service: Alejandro Salazar MD Monocytes (Bld) [#/Vol] 0.35 10*3/uL Normal 0.10-1.20 [facility] Comment on above: Performed By: #### B MP #### [address] [address] Director Service: Alejandro Salazar MD Monocytes/100 WBC (Bld) 9 % Normal 3-12 [facility] Comment on above: Performed By: #### B MP #### [address] [address] Director Service: Alejanrdo Salazar MD Neutrophil (Seg) 31 % Low 36-65 [facility] Comment on above: Performed By: #### B MP #### [address] [address] Director Service: Alejandro Salazar MD NRBC Automated 0.0 per [address] [facility] Comment on above: Performed By: #### B MP #### [address] [address] Director Service: Alejandro Salazar MD Platelet mean volume (Bld) [Entitic vol] 9.1 fL Normal 8.1-13.5 [facility] Comment on above: Performed By: #### B MP #### [facility] [place] [address] Director Service: Alejandro Salazar MD Platelets (Bld) [#/Vol] 238 10*3/uL Normal 138-453 [facility] Comment on above: Performed By: #### B MP #### [facility] [address] [place] [address] Director Service: Alejandro Salazar MD RBC (Bld) [#/Vol] 3.95 10*6/uL Normal 3.95-5.11 [facility] Comment on above: Performed By: #### B MP #### [facility] [address] [place] [address] Director Service: Alejandro Salazar MD WBC (Bld) [#/Vol] 3.9 10*3/uL Normal 3.5-11.3 [facility] Comment on above: Performed By: #### B MP #### [facility] [employer] [address] [place] [address] Director Service: Alejandro Salazar MD Consent Formson 01-27-2025 Consent Forms [id number] [facility] Cult,Urineon 01-27-2025 Cult,Urine Specimen Description .URINE Culture NO SIGNIFICANT GROWTH Report Status FINAL 01/27/[address] [facility] Comment on above: Performed By: #### B MP #### [facility] [employer] [address] [place] [address] Director Service: Alejandro Salazar MD Culture, Urineon 01-27-2025 Microorganism identified Cx Nom (Unsp spec) NO SIGNIFICANT GROWTH [facility] Specimen Description .URINE [facility] FLUORO FOR SURGICAL PROCEDUR ESon 01-27-2025 FLUORO FOR SURGICAL PROCEDURES Radiology exam is complete. No Radiologist dictation. Please follow up with ordering provider. Final result Normal [facility] Guidance-- during surgeryon 01-27-2025 Radiology exam is complete. No Radiologist dictation. Please follow up with ordering provider. MHPN RIS CONSOLIDATED .Auto Diff 1on 01-26-2025 Auto Gem % 10 % Normal 1-12 [facility] Comment on above: Performed By: #### 7 930342, [id number], [id number], [id number], [id number] #### [facility] (DEFAULT) [address] [place] [address] Baso Abs# 0.0 x10 Normal 0.0-0.2 [facility] Comment on above: Performed By: #### 7 772178, [id number], 1063723005, 92463606, 022505493 #### [facility] (DEFAULT) [address] [place] [address] Basophils/100 WBC (Bld) 0.7 % Normal 0.2-2.0 [facility] Comment on above: Performed By: #### 7 949234, [id number], 8841801751, 26699660, 057068632 #### [facility] (DEFAULT) [address] [place] [address] Eos Abs# 0.1 x10 Normal 0.0-0.4 [facility] Comment on above: Performed By: #### 7 927375, [id number], 3881624480, 47771802, 869942661 #### [facility] (DEFAULT) [address] [place] [address] Eosinophils/100 WBC (Bld) 2.4 % Normal 0.9-4.0 [facility] Comment on above: Performed By: #### 7 762842, [id number], 0221553935, 93677988, 910165466 #### [facility] (DEFAULT) [address] [place] [address] Lymph Abs# 1.8 x10 Normal 1.3-2.9 [facility] Comment on above: Performed By: #### 7 018977, [id number], 8200285324, 52885744, 643762908 #### [facility] (DEFAULT) [address] [place] [address] Lymphocytes/100 WBC (Bld) 38 % Normal 14-48 [facility] Comment on above: Performed By: #### 7 162124, 2544430126, 6259990212, 11475488, 142043829 #### [facility] (DEFAULT) [address] [place] [address] Gem Abs# 0.5 x10 Normal 0.0-0.8 [facility] Comment on above: Performed By: #### 7 123802, [id number], 0494748692, 66621979, 351744787 #### [facility] (DEFAULT) [address] [place] [address] Neut Abs# 2.4 x10 Normal 1.5-9.2 [facility] Comment on above: Performed By: #### 7 045298, [id number], 8952706070, 23268025, 836300349 #### [facility] (DEFAULT) [address] [place] [address] Neutrophils/100 WBC (Bld) 49 % Normal 44-88 [facility] Comment on above: Performed By: #### 7 366541, 5917706113, 9564954263, 42408026, 148582383 #### [facility] (DEFAULT) [address] [place] [address] Basic Metabolic Panelon 04-1 0 Anion gap [Moles/Vol] 12 mmol/L 9 - 16 mmol/L [facility] Calcium [Mass/Vol] 8.6 mg/dL 8.6 - 10. 4 mg/dL [facility] Chloride [Moles/Vol] 106 mmol/L 98 - 10 7 mmol/L [facility] CO2 [Moles/Vol] 21 mmol/L 20 - 31 mmol/L [facility] Creatinine [Mass/Vol] 0.9 mg/dL 0.6 - 0.9 mg/dL [facility] Est, Glom Filt Rate 87 - PINF [facility] Comment on above: These results are not [...] 126 mg/dL High 74 - 99 mg/dL [facility] Interpretation and review of laboratory results Abnormal [facility] Potassium [Moles/Vol] 3.7 mmol/L 3.7 - 5.3 mmol/L [facility] Sodium [Moles/Vol] 139 mmol/L 136 - 145 mmol/L [facility] Urea nitrogen [Mass/Vol] 12 mg/dL 6 - 20 mg/dL [facility] Basic Metabolic Profon 01-26 Anion gap [Moles/Vol] 12 mmol/L Normal 9-16 [facility] Comment on above: Performed By: #### B MP #### [facility] [employer] [address] [place] [address] Director Service: Alejandro Salazar MD Calcium [Mass/Vol] 8.6 mg/dL Normal 8.6-10.4 [facility] Comment on above: Performed By: #### B MP #### [facility] [employer] [address] [place] [address] Director Service: Alejandro Salazar MD Chloride [Moles/Vol] 106 mmol/L Normal 98-107 [facility] Comment on above: Performed By: #### B MP #### [facility] [employer] [address] [place] [address] Director Service: Alejandro Salazar MD CO2 [Moles/Vol] 21 mmol/L Normal 20-31 [facility] Comment on above: Performed By: #### B MP #### [facility] [employer] [address] [place] [address] [phone] Director Service: Alejandro Salazar MD Creatinine [Mass/Vol] 0.9 mg/dL Normal 0.6-0.9 [facility] Comment on above: Performed By: #### B MP #### [facility] [employer] [address] [place] [address] Director Service: Alejandro Salazar MD GFR/1.73 sq M.predicted among non-blacks MDRD (S/P/Bld) [Vol rate/Area] 87 mL/min/{1.73_m2} Normal >60 [facility] Comment on above: Result Comment: These [...] secretion. Performed By: #### B MP #### [facility] [employer] [address] [place] [address] Director Service: Alejandro Salazar MD Glucose [Mass/Vol] 126 mg/dL High 74-99 [facility] Comment on above: Performed By: #### B MP #### [address] [address] Director Service: Alejandro Salazar MD Potassium [Moles/Vol] 3.7 mmol/L Normal 3.7-5.3 [facility] Comment on above: Performed By: #### B MP #### [facility] [employer] [address] [place] [address] Director Service: Alejandro Salazar MD Sodium [Moles/Vol] 139 mmol/L Normal 136-145 [facility] Comment on above: Performed By: #### B MP #### [address] [address] Director Service: Alejandro Salazar MD Urea nitrogen [Mass/Vol] 12 mg/dL Normal 6-20 [facility] Comment on above: Performed By: #### B MP #### [employer] [address] [place] [address] Director Service: Alejandro Salazar MD [facility] 01-26-2025 Erythrocyte distribution width (RBC) [Ratio] 12.7 % 11.8 - 14.4 % [facility] Hematocrit (Bld) [Volume fraction] 38.1 % 36.3 - 47.1 % [facility] Hemoglobin (Bld) [Mass/Vol] 12 g/dL 11.9 - 15.1 g/dL [facility] MCH (RBC) [Entitic mass] 27.9 pg 25.2 - 33.5 pg [facility] MCHC (RBC) [Mass/Vol] 31.5 g/dL 28.4 - 34.8 g/dL [facility] MCV (RBC) [Entitic vol] 88.6 fL 82.6 - 102.9 fL [facility] Nucleated RBC/100 WBC (Bld) [Ratio] 0 % 0.0 per 100 WBC [facility] Platelet mean volume (Bld) [Entitic vol] 9 fL 8.1 - 13.5 fL [facility] Platelets (Bld) [#/Vol] 261 10*3/uL [facility] RBC (Bld) [#/Vol] 4.3 10*6/uL 3.95 - 5.1 1 m/uL [facility] WBC other (Bld) [#/Vol] 5.9 [facility] Erythrocyte distribution width (RBC) [Ratio] 12.7 % Normal 11.8-14.4 [facility] Comment on above: Performed By: #### B MP #### [employer] [address] [place] [address] Director Service: Alejandro Salazar MD Hematocrit (Bld) [Volume fraction] 38.1 % Normal 36.3-47.1 [facility] Comment on above: Performed By: #### B MP #### [employer] [address] [place] [address] Director Service: Alejandro Salazar MD Hemoglobin (Bld) [Mass/Vol] 12.0 g/dL Normal 11.9-15.1 [facility] Comment on above: Performed By: #### B MP #### [address] [address] Director Service: Alejandro Salazar MD MCH (RBC) [Entitic mass] 27.9 pg Normal 25.2-33.5 [facility] Comment on above: Performed By: #### B MP #### [address] [address] Director Service: Alejandro Salazar MD MCHC (RBC) [Mass/Vol] 31.5 g/dL Normal 28.4-34.8 [facility] Comment on above: Performed By: #### B MP #### [address] [address] Director Service: Alejandro Salazar MD MCV (RBC) [Entitic vol] 88.6 fL Normal 82.6-102.9 [facility] Comment on above: Performed By: #### B MP #### [address] [address] Director Service: Alejandro Salazar MD NRBC Automated 0.0 per [address] [facility] Comment on above: Performed By: #### B MP #### [address] [address] Director Service: Alejandro Salazar MD Platelet mean volume (Bld) [Entitic vol] 9.0 fL Normal 8.1-13.5 [facility] Comment on above: Performed By: #### B MP #### [address] [address] Director Service: Alejandro Salazar MD Platelets (Bld) [#/Vol] 261 10*3/uL Normal 138-453 [facility] Comment on above: Performed By: #### B MP #### [address] [address] Director Service: Alejandro Salazar MD RBC (Bld) [#/Vol] 4.30 10*6/uL Normal 3.95-5.11 [facility] Comment on above: Performed By: #### B MP #### [address] [address] Director Service: Alejandro Salazar MD WBC (Bld) [#/Vol] 5.9 10*3/uL Normal 3.5-11.3 [facility] Comment on above: Performed By: #### B MP #### [address] [address] Director Service: Alejandro Salazar MD CBC w/ Auto Diffon Erythrocyte distribution width (RBC) [Ratio] 13.6 % Normal 11.5-15.0 [facility] Comment on above: Performed By: #### 7 393787, [id number], 5971272426, 32585468, 259178058 #### [facility] (DEFAULT) [address] [place] [address] Hematocrit (Bld) [Volume fraction] 37.0 % Normal 33.7-40.4 [facility] Comment on above: Performed By: #### 7 237469, 3960242774, 9029494567, 05538603, 092031291 #### [facility] (DEFAULT) [address] [place] [address] Hemoglobin (Bld) [Mass/Vol] 12.7 g/dL Normal 11.3-15.9 [facility] Comment on above: Performed By: #### 7 635974, 1944079772, 2499329742, 94642234, 241138950 #### [facility] (DEFAULT) [address] [place] [address] Man Diff? Auto Invalid Interpretation Code [facility] Comment on above: Performed By: #### 7 224950, [id number], 6026671185, 61313306, 247143594 #### [facility] (DEFAULT) [address] [place] [address] MCH (RBC) [Entitic mass] 29 pg Normal 24-34 [facility] Comment on above: Performed By: #### 7 084746, [id number], 0742286013, 75055158, 795275566 #### [facility] (DEFAULT) [address] [place] [address] MCHC (RBC) [Mass/Vol] 34 g/dL Normal 26-[address] [facility] Comment on above: Performed By: #### 7 516863, 1168214760, 6930145476, 78927133, 166728218 #### [facility] (DEFAULT) [address] [place] [address] MCV (RBC) [Entitic vol] 84 fL Normal 81-100 [facility] Comment on above: Performed By: #### 7 092823, 1685927935, 6077028876, 01951802, 654543100 #### [facility] (DEFAULT) [address] [place] [address] Platelet 287 x10 Normal 138-427 [facility] Comment on above: Performed By: #### 7 788191, 4783662360, 7453672132, 71114661, 546988790 #### [facility] (DEFAULT) [address] [place] [address] Platelet mean volume (Bld) [Entitic vol] 7.3 fL Normal 6.3-10.2 [facility] Comment on above: Performed By: #### 7 286894, 5874070272, 5058397358, 48545072, 796686198 #### [facility] (DEFAULT) [address] [place] [address] RBC 4.39 x10 Normal 3.70-5.30 [facility] Comment on above: Performed By: #### 7 826084, 9630581753, 5164691572, 78486905, 751106820 #### [facility] (DEFAULT) [address] [place] [address] WBC 4.8 x10 Normal 3.5-10.5 [facility] Comment on above: Performed By: #### 7 708879, 6914832320, 0692812115, 81904025, 801660382 #### [facility] (DEFAULT) [address] [place] [address] CMP Standardon 01-26-2025 eGFR Non AA >60 Invalid Interpretation Code [facility] Comment on above: Performed By: #### 7 891187, [id number], 6759595886, 45685340, 513968893 #### [facility] (DEFAULT) [address] [place] [address] eGFR AA >60 Invalid Interpretation Code [facility] Comment on above: Performed By: #### 7 276303, 6915541194, 5710647879, 97782635, 639509249 #### [facility] (DEFAULT) [address] [place] [address] Albumin [Mass/Vol] 3.7 g/dL Normal 3.5-5.[address] [facility] Comment on above: Performed By: #### 7 464988, 5299235125, 9323816166, 57941288, 317324665 #### [facility] (DEFAULT) [address] [place] [address] Albumin/Globulin [Mass ratio] 1.0 {ratio} Low 1.4-2.6 [facility] Comment on above: Performed By: #### 7 542161, 1055109000, 1232636023, 68145238, 716383732 #### [facility] (DEFAULT) [address] [place] [address] Alk Phos 70 IU/L Normal 32-91 [facility] Comment on above: Performed By: #### 7 531881, 4267949442, 4534144466, 09797952, 922313055 #### [facility] (DEFAULT) [address] [place] [address] ALT [Catalytic activity/Vol] 75.0 U/L High 14.0-54.0 [facility] Comment on above: Performed By: #### 7 432896, 5476170635, 7077907282, 87627735, 699928153 #### [facility] (DEFAULT) [address] [place] [address] 33043 AST [Catalytic activity/Vol] 27 U/L Normal 15-41 [facility] Comment on above: Performed By: #### 7 048735, 3284186400, 8858498029, 85515077, 768859570 #### [facility] (DEFAULT) [address] [place] [address] Bili Total 0.7 mg/dL Normal 0.3-1.2 [facility] Comment on above: Performed By: #### 7 113122, 7227440713, 4282120853, 86418182, 258378539 #### [facility] (DEFAULT) [address] [place] [address] Creatinine [Mass/Vol] 0.94 mg/dL Normal 0.60-1.[address] [facility] Comment on above: Performed By: #### 7 824210, 5854144549, 1375854578, 16625553, 956767775 #### [facility] (DEFAULT) [address] [place] [address] Globulin (S) [Mass/Vol] 3.5 g/dL Normal 1.5-4.3 [facility] Comment on above: Performed By: #### 7 642264, 4607914051, 8957740556, 19638481, 425660066 #### [facility] (DEFAULT) [address] [place] [address] Osmolality 277 mOsm/L Invalid Interpretation Code [facility] Comment on above: Performed By: #### 7 850982, 0385161787, 6664865135, 00594107, 194774160 #### [facility] (DEFAULT) [address] [place] [address]180 Protein [Mass/Vol] 7.2 g/dL Normal 6.5-8.[address] [facility] Comment on above: Performed By: #### 7 658323, 0590125361, 9340707555, 29882196, 940081283 #### [facility] (DEFAULT) [address] [place] [address] Urea nitrogen [Mass/Vol] 13 mg/dL Normal 8-26 [facility] Comment on above: Performed By: #### 7 788970, 8510636998, 7795429432, 53832554, 444639819 #### [facility] (DEFAULT) [address] [place] [address] Urea nitrogen/Creatinine [Mass ratio] 13.8 mg/mg Normal 4.6-16.2 [facility] Comment on above: Performed By: #### 7 479280, 4536335926, 6310332627, 82924255, 564726181 #### [facility] (DEFAULT) [address] [place] [address]886 Anion gap [Moles/Vol] 13.6 mmol/L Normal 5.0-19.0 [facility] Comment on above: Performed By: #### 7 243244, 9163203659, 6564256426, 34538173, 887665946 #### [facility] (DEFAULT) [address] [place] [address] Calcium [Mass/Vol] 9.4 mg/dL Normal 8.9-10.[address] [facility] Comment on above: Performed By: #### 7 250118, 8283995360, 1803947817, 79285169, 737510234 #### [facility] (DEFAULT) [address] [place] [address] Chloride [Moles/Vol] 104 mmol/L Normal 101-111 [facility] Comment on above: Performed By: #### 7 768219, 6315343534, 1457716906, 00743443, 171573667 #### [facility] (DEFAULT) [address] [place] [address] 14881 CO2 [Moles/Vol] 25 mmol/L Normal 21-32 [facility] Comment on above: Performed By: #### 7 210424, 2436070090, 5058716581, 26839623, 811549618 #### [facility] (DEFAULT) [address] [place] [address] Glucose [Mass/Vol] 93.0 mg/dL Normal 74.0-118.[address] [facility] Comment on above: Performed By: #### 7 783180, 2211173955, 2903171021, 46436250, 465411135 #### [facility] (DEFAULT) [address] [place] [address] Potassium [Moles/Vol] 3.6 mmol/L Normal 3.6-5.[address] [facility] Comment on above: Performed By: #### 7 751967, 0193637725, 7921120534, 61574464, 239829460 #### [facility] (DEFAULT) [address] [place] [address]67 Sodium [Moles/Vol] 139.0 mmol/L Normal 136.0-144.[address] [facility] Comment on above: Performed By: #### 7 724025, 8950105378, 2641057251, 77489166, 088037616 #### [facility] (DEFAULT) [address] [place] [address] Abdomen/Pelvis w/o Contra ston 01-26-2025 CT [...] MD 01/26/25 2:00 pm Technologist: Boogie COLE [facility] ED Note-Nursingon 01-26-2025 ED Note-Nursing Pt stated she was seen in [facility] recently and Dr. Plata is requesting records. Logistics Associate called [facility] to get records faxed. Stated they would be faxing results over. [facility] Extra Blueon 01-26-2025 Tube Collected Yes Invalid Interpretation Code [facility] Comment on above: Performed By: #### 7 518221, 1005344383, 5866453534, 51291435, 146515069 #### [facility] (DEFAULT) [address] [place] [address] Microscopic Urinalysison Bacteria LM Ql (Urine sed) None None [facility] Casts LM.LPF (Urine sed) [#/Area] 2 TO 5 HYALINE Reference range defined for non-centrifuged specimen. [facility] Epithelial cells LM.HPF (Urine sed) [#/Area] 2 TO 5 [facility] RBC LM.HPF (Urine sed) [#/Area] TOO NUMEROUS TO COUNT [facility] Comment on above: Reference range defi salty for non-centrifuged specimen. WBC LM.HPF (Urine sed) [#/Area] 20 TO 50 [facility] Bon [facility] Test Serum 1on Preg Serum Internal Control OK [facility] Comment on above: Performed By: #### 7 371835, 2808309330, 5416460094, 94657691, 586803806 #### [facility] (DEFAULT) [address] [place] [address] Test Serum Qual Negative [facility] Comment on above: Performed By: #### 7 290554, 3716360492, 1362072988, 47697942, 549827314 #### [facility] (DEFAULT) [address] [place] [address] Stone Analysison 01-26-2025 Calculi description See Note [facility] Comment on above: Result Comment: (NOT E) Specimen consists of one rondon sample. The total weight is less than 2 mg. Performed By: #### A STONE #### [facility] [address] [place] [address] [id number] Director Service: Mane Tolbert MD Composition See Note [facility] Comment on above: Result Comment: (NOT [...] composition determined by FTIR analysis. Performed By: [facility] [address] [place] [address] Software Sales Manager: Jorge Melendrez MD, PhD CLIA Number: [id number] Performed By: #### A STONE #### [facility] [address] [place] [address] Director Service: Mane Tolbert MD Mass See Note [facility] Comment on above: Result Comment: (NOT E) Sample mass < 2 mg. Small sample size prevents accurate weight determination. Performed By: #### A STONE #### [address] [address] Director Service: Mane Tolbert MD Transfer Noteon 01-26-2025 Transfer Note Patient requires transfer to [facility] for a diagnosis of hydronephrosis. 1527- Kylie from [employer], Tamiko Mercedes NP paged, hospitalist speaks to Dr. Plata, accepts, top gun is open. 1539- Called [facility], chief talent officer Austin gave 20 minute ETA. 1547- [facility] arrives 1550- [employer] calls, bed assignment given, room 321 bed 2, report number [id number] 1610- [facility] departs [Electronically Signed on: 01/26/2025 16:28 EDT] Beth Rodriguez RN [Verified on: 01/26/2025 16:28 EDT] Beth Rodriguez RN 1630- Dr. Plata signs physician note, this note was faxed to [facility] at fax number [phone]. [Electronically Signed on: 01/26/2025 16:31 EDT] Beth Rodriguez RN Normal [facility] UA [id number] 01-26-2025 UA Bacteria Trace Normal [facility] Comment on above: Order Comment: Urina lysis Microscopic order added on by [employer] Expert Rules system. Performed By: #### 7 [id number], [id number], [id number], [id number], [id number] #### [facility] (DEFAULT) [address] [place] [address] UA Comment. See Comment Invalid Interpretation Code [facility] Comment on above: Order Comment: Urina lysis Microscopic order added on by [employer] Rules system. Result Comment: 4+ S ulfa Crystals present Performed By: #### 7 [id number], [id number], [id number], [id number], [id number] #### [facility] (DEFAULT) [address] [place] [address] RBC Gross Blood [facility] Comment on above: Order Comment: Urina lysis Microscopic order added on by [employer] Rules system. Performed By: #### 7 134205, [id number], [id number], [id number], [id number] #### [facility] (DEFAULT) [address] [place] [address] UA Squam Epi Moderate Normal [facility] Comment on above: Order Comment: Urina lysis Microscopic order added on by [employer] Expert Rules system. Performed By: #### 7 225982, [id number], [id number], [id number], [id number] #### [facility] (DEFAULT) [address] [place] [address] UA WBC 3-5 Normal [facility] Comment on above: Order Comment: Urina lysis Microscopic order added on by [employer] Expert Rules system. Performed By: #### 7 536436, [id number], [id number], [id number], [id number] #### [facility] (DEFAULT) [address] [place] [address] UA w Culture if Ind Standard on 01-26-[address] [facility] Comment on above: Performed By: #### 7 535900, [id number], [id number], [id number], [id number] #### [facility] (DEFAULT) [address] [place] [address] Color (U) Red Normal [facility] Comment on above: Result Comment: Test cannot be satisfactorily determined due to intensely colored urine. Parameters which will be affected are: GLU, BRAIN, URO, KET, BLO, PRO, NIT, LISSA, SG, AND pH. Performed By: #### 7 266663, [id number], [id number], [id number], [id number] #### [facility] (DEFAULT) [address] [place] [address] Culture? Yes Normal [facility] Comment on above: Result Comment: Resu lt created by rule GL_MAGR_ADD_UA_CULT Result created by rule GL_MAGR_ADD_UA_CULT1 Performed By: #### 7 369386, [id number], [id number], [id number], [id number] #### [facility] (DEFAULT) [address] [place] [address] Glucose (U) [Mass/Vol] Negative Normal [facility] Comment on above: Performed By: #### 7 394876, [id number], [id number], [id number], [id number] #### [facility] (DEFAULT) [address] [place] [address] Ketones Ql (U) Negative Normal [facility] Comment on above: Performed By: #### 7 991733, [id number], [id number], [id number], [id number] #### [facility] (DEFAULT) [address] [place] [address] Micro? Indicated Invalid Interpretation Code [facility] Comment on above: Result Comment: Resu lt created by rule GL_MAGR_ADD_UA_MICRO Performed By: #### 7 401209, [id number], [id number], [id number], [id number] #### [facility] (DEFAULT) [address] [place] [address] UA Bilirubin SMALL Abnormal [facility] Comment on above: Performed By: #### 7 186665, [id number], [id number], [id number], [id number] #### [facility] (DEFAULT) [address] [place] [address] UA Blood LARGE Abnormal NEGATIVE [facility] Comment on above: Performed By: #### 7 352400, [id number], [id number], [id number], [id number] #### [facility] (DEFAULT) [address] [place] [address] UA Clarity CLOUDY Abnormal CLEAR [facility] Comment on above: Performed By: #### 7 951870, [id number], [id number], [id number], [id number] #### [facility] (DEFAULT) [address] [place] [address] UA Leuk Est MODERATE Abnormal NEGATIVE [facility] Comment on above: Performed By: #### 7 763504, [id number], [id number], [id number], [id number] #### [facility] (DEFAULT) [address] [place] [address] UA Nitrite Negative Normal NEGATIVE [facility] Comment on above: Performed By: #### 7 405923, [id number], [id number], [id number], [id number] #### [facility] (DEFAULT) [address] [place] [address] UA pH 7.0 Normal 5-8 [facility] Comment on above: Performed By: #### 7 358896, [id number], [id number], [id number], [id number] #### [facility] (DEFAULT) [address] [place] [address] UA Protein 100 Abnormal NEGATIVE [facility] Comment on above: Performed By: #### 7 863244, [id number], [id number], [id number], [id number] #### [facility] (DEFAULT) [address] [place] [address] UA Spec Grav 1.020 Normal 1.001-1.035 [facility] Comment on above: Performed By: #### 7 431305, [id number], [id number], [id number], [id number] #### [facility] (DEFAULT) [address] [place] [address] UA Urobilinogen 0.2 mg/dL Normal 0.2-1.0 [facility] Comment on above: Performed By: #### 7 969446, [id number], [id number], [id number], [id number] #### [facility] (DEFAULT) [address] [place] [address] Urine Source Clean Catch Normal [facility] Comment on above: Performed By: #### 7 112193, [id number], [id number], [id number], [id number] #### [facility] (DEFAULT) [address] [place] [address] UA w/Reflex Cultureon 2024 Bilirubin, SemiQt,Ur Negative Normal NEG [facility] Comment on above: Performed By: #### U AX, UMICAO #### [facility] [address] [place] [address] Director Service: Alejandro Salazar MD Blood, Urine LARGE Abnormal NEG [facility] Comment on above: Performed By: #### U AX, UMICAO #### [facility] [address] [place] [address] Director Service: Alejandro Salazar MD Clarity (U) Cloudy Abnormal CLEAR [facility] Comment on above: Performed By: #### U AX, UMICAO #### [facility] [address] [place] [address] Director Service: Alejandro Salazar MD Color (U) [place] Abnormal YEL [facility] Comment on above: Result Comment: INTE RPRET WITH CAUTION DUE TO INTENSE COLOR OF URINE. Performed By: #### U AX, UMICAO #### [facility] [address] [place] [address] Director Service: Alejandro Salazar MD Glucose Ql (U) Negative Normal NEG [facility] Comment on above: Performed By: #### U AX, UMICAO #### [facility] [address] [place] [address] Director Service: Alejandro Salazar MD Ketones Ql (U) Negative Normal NEG [facility] Comment on above: Performed By: #### U AX, UMICAO #### [facility] [address] [place] [address] Director Service: Alejandro Salazar MD Leukocyte esterase Test strip Ql (U) MODERATE Abnormal NEG [facility] Comment on above: Performed By: #### U AX, UMICAO #### [facility] [place] [address] Director Service: Alejandro Salazar MD Nitrite,Ur Negative Normal NEG [facility] Comment on above: Performed By: #### U AX, UMICAO #### [facility] [address] [place] [address] Director Service: Alejandro Salazar MD PH,Ur 6.5 Normal 5.0-8.0 [facility] Comment on above: Performed By: #### U AX, UMICAO #### [facility] [address] [place] [address] Director Service: Alejandro Salazar MD Protein Ql (U) 2+ mg/dL Abnormal NEG [facility] Comment on above: Performed By: #### U AX UMICAO #### [facility] [address] [place] [address] Director Service: Alejandro Salazar MD Spec. [place],Ur 1.016 Normal 1.005-1.030 [facility] Comment on above: Performed By: #### U AX UMICAO #### [facility] [address] [place] [address] Director Service: Alejandro Salazar MD Urobilinogen,Ur Normal Normal 0.0-1.0 [facility] Comment on above: Performed By: #### U AX, UMICAO #### [facility] [address] [place] [address] Director Service: Alejandro Salazar MD Urinalysis with Reflex to Cu ltureon 01-26-2025 Bilirubin Ql (U) Negative NEGATIVE [facility] Clarity (U) Cloudy Abnormal Clear [facility] Color (U) [place] Abnormal Yellow [facility] Comment on above: INTERPRET WITH CAUTI ON DUE TO INTENSE COLOR OF URINE. Glucose Test strip (U) [Mass/Vol] Negative NEGATIVE mg/dL [facility] Hemoglobin Auto test strip Ql (U) LARGE Abnormal NEGATIVE [facility] Interpretation and review of laboratory results Abnormal [facility] Ketones (U) [Mass/Vol] Negative NEGATIVE mg/dL [facility] Leukocyte esterase Test strip Ql (U) MODERATE Abnormal NEGATIVE [facility] Nitrite Ql (U) Negative NEGATIVE [facility] pH (U) 6.5 [pH] 5.0 - 8.0 [facility] Protein (U) [Mass/Vol] 2+ Abnormal NEGATIVE mg/dL [facility] Specific gravity (U) [Rel density] 1.016 1.005 - 1.030 [facility] Urobilinogen Qn (U) Normal 0.0 - 1. 0 EU/dL [facility] Urinalysis,Microon 5 Bacteria None Normal NONE [facility] Comment on above: Performed By: #### U AX, UMICAO #### [facility] [address] [place] [address] Director Service: Alejandro Salazar MD Casts 2 TO 5 HYALINE Normal 0-8 [facility] Comment on above: Result Comment: Refe rence range defined for non-centrifuged specimen. Performed By: #### U AX, UMICAO #### [facility] [address] [place] [address] Director Service: Alejandro Salazar MD Epithelial cells LM Ql (Urine sed) 2 TO 5 Normal 0-5 [facility] Comment on above: Performed By: #### U AX, UMICAO #### [facility] [address] [place] [address] Director Service: Alejandro Salazar MD Urine RBC's TOO NUMEROUS TO COUNT Normal 0-4 [facility] Comment on above: Result Comment: Refe rence range defined for non-centrifuged specimen. Performed By: #### U AX, UMICAO #### [facility] [address] [place] [address] Director Service: Alejandro Salazar MD Urine WBC's 20 TO 50 Normal 0-5 [facility] Comment on above: Performed By: #### U AX, UMFERCHOO #### [address] [address] Director Service: Alejandro Salazar MD Cult,Urineon 01-23-2025 Cult,Urine Specimen Description .BLADDER URINE FROM CYSTOSCOPY Special Requests Site: Urine Culture NO GROWTH Report Status FINAL 01/23/[address] [facility] Comment on above: Performed By: #### U RC #### [address] [address] Director Service: Alejandro Salazar MD Basic Metabolic Profon 01-22 Anion gap [Moles/Vol] 12 mmol/L Normal 9-16 [facility] Comment on above: Performed By: #### B MP #### [address] [address] Director Service: Alejandro Salazar MD Calcium [Mass/Vol] 8.4 mg/dL Low 8.6-10.4 [facility] Comment on above: Performed By: #### B MP #### [address] [address] Director Service: Alejandro Salazar MD Chloride [Moles/Vol] 107 mmol/L Normal 98-107 [facility] Comment on above: Performed By: #### B MP #### [address] [address] Director Service: Alejandro Salazar MD CO2 [Moles/Vol] 21 mmol/L Normal 20-31 [facility] Comment on above: Performed By: #### B MP #### [address] [address] Director Service: Alejandro Salazar MD Creatinine [Mass/Vol] 0.7 mg/dL Normal 0.6-0.9 [facility] Comment on above: Performed By: #### B MP #### [facility] [address] [place] [address] [phone] Director Service: Alejandro Salazar MD GFR/1.73 sq M.predicted among non-blacks MDRD (S/P/Bld) [Vol rate/Area] mL/min/{1.73_m2} Normal >60 [facility] Comment on above: Result Comment: These [...] secretion. Performed By: #### B MP #### [facility] [address] [place] [address] Director Service: Alejandro Salazar MD Glucose [Mass/Vol] 94 mg/dL Normal 74-99 [facility] Comment on above: Performed By: #### B MP #### [facility] [address] [place] [address] Director Service: Alejandro Salazar MD Potassium [Moles/Vol] 4.2 mmol/L Normal 3.7-5.3 [facility] Comment on above: Result Comment: Spec imen hemolysis has exceeded the interference as defined by Denise. Value may be falsely increased. Suggest recollection if clinically indicated. Performed By: #### B MP #### [facility] [address] [place] [address] Director Service: Alejandro Salazar MD Sodium [Moles/Vol] 140 mmol/L Normal 136-145 [facility] Comment on above: Performed By: #### B MP #### [facility] [address] [place] [address] [phone] Director Service: Alejandro Salazar MD Urea nitrogen [Mass/Vol] 6 mg/dL Normal 6-20 [facility] Comment on above: Performed By: #### B #### [facility] [address] [place] [address] Director Service: Alejandro Salazar MD Basic metabolic panelon Anion gap [Moles/Vol] 12 mmol/L 9 - 16 mmol/L [facility] Calcium [Mass/Vol] 8.4 mg/dL Low 8.6 - 10. 4 mg/dL [facility] Chloride [Moles/Vol] 107 mmol/L 98 - 10 7 mmol/L [facility] CO2 [Moles/Vol] 21 mmol/L 20 - 31 mmol/L [facility] Creatinine [Mass/Vol] 0.7 mg/dL 0.6 - 0.9 mg/dL [facility] Est, Glohayley Lundt Rate - PINF [facility] Comment on above: These results are not [...] [Mass/Vol] 94 mg/dL 74 - 99 mg/dL [facility] Interpretation and review of laboratory results Abnormal [facility] Potassium [Moles/Vol] 4.2 mmol/L 3.7 - 5.3 mmol/L [facility] Comment on above: Specimen hemolysis h as exceeded the interference as defined by Denise. Value may be falsely increased. Suggest recollection if clinically indicated. Sodium [Moles/Vol] 140 mmol/L 136 - 145 mmol/L [facility] Urea nitrogen [Mass/Vol] 6 mg/dL 6 - 20 mg/dL [facility] CBC with Auto Differentialon 01-22-2025 Basophils (Bld) [#/Vol] 0.03 10*3/uL [facility] Basophils/100 WBC (Bld) 1 % 0 - 2 % [facility] Eosinophils (Bld) [#/Vol] [facility] Eosinophils/100 WBC (Bld) 1 % 1 - 4 % [facility] Erythrocyte distribution width (RBC) [Ratio] 12.5 % 11.8 - 14.4 % [facility] Hematocrit (Bld) [Volume fraction] 36.7 % 36.3 - 47.1 % [facility] Hemoglobin (Bld) [Mass/Vol] 11.8 g/dL Low 11.9 - 15.1 g/dL [facility] Immature granulocytes (Bld) [#/Vol] [facility] Immature granulocytes/100 WBC (Bld) 0 % 0 [facility] Interpretation and review of laboratory results Abnormal [facility] Lymphocytes/100 WBC (Bld) 34 % 24 - 43 % [facility] Lymphocytes/100 WBC (Bld) 1.19 % [facility] MCH (RBC) [Entitic mass] 27.6 pg 25.2 - 33.5 pg [facility] MCHC (RBC) [Mass/Vol] 32.2 g/dL 28.4 - 34.8 g/dL [facility] MCV (RBC) [Entitic vol] 85.7 fL 82.6 - 102.9 fL [facility] Monocytes/100 WBC (Bld) 9 % 3 - 12 % [facility] Monocytes/100 WBC (Bld) 0.3 % [facility] Neutrophils/100 WBC (Bld) 55 % 36 - 65 % [facility] Nucleated RBC/100 WBC (Bld) [Ratio] 0 % 0.0 per 100 WBC [facility] Platelet mean volume (Bld) [Entitic vol] 9.1 fL 8.1 - 13.5 fL [facility] Platelets (Bld) [#/Vol] 217 10*3/uL [facility] RBC (Bld) [#/Vol] 4.28 10*6/uL 3.95 - 5.1 1 m/uL [facility] Segmented neutrophils/100 WBC (Bld) 1.96 % [facility] WBC other (Bld) [#/Vol] 3.5 [facility] CBC with Diffon 01-22-2025 Abs. Basophil 0.03 k/uL Normal 0.00-0.20 [facility] Comment on above: Performed By: #### C DP #### [address] [address] Director Service: Alejandro Salazar MD Abs. Eosinophil <0.03 Normal 0.00-0.44 [facility] Comment on above: Performed By: #### C DP #### [address] [address] Director Service: Alejandro Salazar MD Abs.Imm.Granulocyte <0.03 Normal 0.00-0.30 [facility] Comment on above: Performed By: #### C DP #### [address] [address] Director Service: Alejandro Salazar MD Abs.Neutrophil (Seg) 1.96 k/uL Normal 1.50-8.10 [facility] Comment on above: Performed By: #### C DP #### [address] [address] Director Service: Alejandro Salazar MD Basophils/100 WBC (Bld) 1 % Normal 0-2 [facility] Comment on above: Performed By: #### C DP #### [address] [address] Director Service: Alejandro Salazar MD Eosinophils/100 WBC (Bld) 1 % Normal 1-4 [facility] Comment on above: Performed By: #### C DP #### [address] [address] Director Service: Alejandro Salazar MD Erythrocyte distribution width (RBC) [Ratio] 12.5 % Normal 11.8-14.4 [facility] Comment on above: Performed By: #### C DP #### [address] [address] Director Service: Alejandro Salazar MD Hematocrit (Bld) [Volume fraction] 36.7 % Normal 36.3-47.1 [facility] Comment on above: Performed By: #### C DP #### [address] [address] Director Service: Alejandro Salazar MD Hemoglobin (Bld) [Mass/Vol] 11.8 g/dL Low 11.9-15.1 [facility] Comment on above: Performed By: #### C DP #### [address] [address] Director Service: Alejandro Salazar MD Immature granulocytes/100 WBC (Bld) 0 % Normal 0 [facility] Comment on above: Performed By: #### C DP #### [address] [address] Director Service: Alejandro Salazar MD Lymphocytes (Bld) [#/Vol] 1.19 10*3/uL Normal 1.10-3.70 [facility] Comment on above: Performed By: #### C DP #### [address] [address] Director Service: Alejandro Salazar MD Lymphocytes/100 WBC (Bld) 34 % Normal 24-43 [facility] Comment on above: Performed By: #### C DP #### [address] [address] Director Service: Alejandro Salazar MD MCH (RBC) [Entitic mass] 27.6 pg Normal 25.2-33.5 [facility] Comment on above: Performed By: #### C DP #### [address] [address] Director Service: Alejandro Salazar MD MCHC (RBC) [Mass/Vol] 32.2 g/dL Normal 28.4-34.8 [facility] Comment on above: Performed By: #### C DP #### [address] [address] Director Service: Alejandro Salazar MD MCV (RBC) [Entitic vol] 85.7 fL Normal 82.6-102.9 [facility] Comment on above: Performed By: #### C DP #### [place] [address] Director Service: Alejandro Salazar MD Monocytes (Bld) [#/Vol] 0.30 10*3/uL Normal 0.10-1.20 [facility] Comment on above: Performed By: #### C DP #### [place] [address] Director Service: Alejandro Salazar MD Monocytes/100 WBC (Bld) 9 % Normal 3-12 [facility] Comment on above: Performed By: #### C DP #### [address] [address] Director Service: Alejandro Salazar MD Neutrophil (Seg) 55 % Normal 36-65 [facility] Comment on above: Performed By: #### C DP #### [place] [address] Director Service: Alejandro Salazar MD NRBC Automated 0.0 per [address] [facility] Comment on above: Performed By: #### C DP #### [place] [address] Director Service: Alejandro Salazar MD Platelet mean volume (Bld) [Entitic vol] 9.1 fL Normal 8.1-13.5 [facility] Comment on above: Performed By: #### C DP #### [facility] [address] [place] [address] Director Service: Alejandro Salazar MD Platelets (Bld) [#/Vol] 217 10*3/uL Normal 138-453 [facility] Comment on above: Performed By: #### C DP #### [facility] [address] [place] [address] Director Service: Alejandro Salazar MD RBC (Bld) [#/Vol] 4.28 10*6/uL Normal 3.95-5.11 [facility] Comment on above: Performed By: #### C DP #### [facility] [address] [place] [address] Director Service: Alejandro Salazar MD WBC (Bld) [#/Vol] 3.5 10*3/uL Normal 3.5-11.3 [facility] Comment on above: Performed By: #### C DP #### [facility] [address] [place] [address] Director Service: Alejandro Salazar MD FLUORO FOR SURGICAL PROCEDUR ESon 01-22-2025 FLUORO FOR SURGICAL PROCEDURES Radiology exam is complete. No Radiologist dictation. Please follow up with ordering provider. Final result Normal [facility] Guidance-- during surgeryon 01-22-2025 Radiology exam is complete. No Radiologist dictation. Please follow up with ordering provider. PN RIS CONSOLIDATED Lactic Acidon 01-22-2025 Lactic Acid, Whole Blood 1 mmol/L 0.7 - 2.1 mmol/L [facility] Lactic Acid,Whole Bl 1.0 mmol/L Normal 0.7-2.1 [facility] Comment on above: Performed By: #### L ACTIC #### [facility] [address] [place] [address] Director Service: Alejandro Salazar MD PREVIOUS SPECIMENon 01-23-20 25 [facility] Urine Cultureon 01-21-2025 Bacteria identified Cx Nom (U) ORGANISM: Escherichia coli (O:ESCCOL) [place] Count >100,000 Aerobic ANASTASIA Charge (NMIC56) ---- [...] RESISTANT TO ALL B-LACTAM DRUGS. PERFORMED BY: [place] [address] PATHOLOGIST [employer]ITY [employer] WORKER DAVID TIERNEY M.D. Normal [facility] Comment on above: Performed By: #### C UU #### [address] [place] VOIDING URETHROCYSTOGRAM S AND Ion 01-17-2025 [place] VOIDING URETHROCYSTOGRAM S AND I EXAMINATION: VOIDING CYSTO URETHROGRAM 01/17/2025 7:55 am COMPARISON: None. HISTORY: ORDERING SYSTEM PROVIDED HISTORY: VUR (vesicoureteric reflux) TECHNOLOGIST PROVIDED HISTORY: Is the patient ?->No Reason for Exam: frequent UTI, kidney stones FLUOROSCOPY DOSE AND TYPE: Radiation Exposure Index: DAP [id number], FINDINGS: 600 mL of Cystografin was instilled [...] Casey Sharma MD 01/17/[address] [facility] [place] VOIDING URETHROCYSTOGRAM S&Ion 01-17-2025 1. No evidence for vesicoureteric reflux. 2. Small postvoid residual. [facility] RIS CONSOLIDATED EXAMINATION: VOIDING CYSTO URETHROGRAM 01/17/2025 7:55 am COMPARISON: None. HISTORY: ORDERING SYSTEM PROVIDED HISTORY: VUR (vesicoureteric reflux) TECHNOLOGIST PROVIDED HISTORY: Is the patient ?->No Reason for Exam: frequent UTI, kidney stones FLUOROSCOPY DOSE AND TYPE: Radiation Exposure Index: DAP [id number], FINDINGS: 600 mL of Cystografin was instilled [...] the urethra. There is small postvoid residual. [facility] RIS CONSOLIDATED Casey Sharma MD - 01/17/2025 EXAMINATION: VOIDING CYSTO URETHROGRAM 01/17/2025 7:55 am COMPARISON: None. HISTORY: ORDERING SYSTEM PROVIDED HISTORY: VUR (vesicoureteric reflux) TECHNOLOGIST PROVIDED HISTORY: Is the patient ?->No Reason for Exam: frequent UTI, kidney stones FLUOROSCOPY DOSE AND TYPE: Radiation Exposure Index: DAP [id number], FINDINGS: 600 mL of Cystografin was instilled [...] for vesicoureteric reflux. 2. Small postvoid residual. [facility] Radiology Study observation (narrative) [facility] [place] VOIDING URETHROCYSTOGRAM S&IOrdered By: Casey Sharma on 01-17-2025 [facility] Work Phone: NM KIDNEY W FLOW AND [...] Glen Perez MD 01/16/25 Final result Normal [facility] Urine Cultureon 12-02-2024 Bacteria identified Cx Nom (U) 30,000 colonies/ml mixed bacterial skin contaminants 2 Days PERFORMED BY: [place] [address] PATHOLOGIST COMMUNITY OUTREACH WORKER DAVID TIERNEY M.D. Normal [facility] Comment on above: Performed By: #### C UU #### [address] Urine cultureOrdered By: Vicente Snyder on 12-02-2024 Bacteria identified Cx Nom (U) Urine culture [facility] Cholesterol [Mass/volume] in Serum or PlasmaOrdered By: Arnulfo Aviles on 04-09-2024 Cholesterol [Mass/Vol] 150 mg/dL 140-200 [facility] Comment on above: Chol less than 200 m g/dl low riskChol 201-239 mg/dl borderline riskChol 240 mg/dl and greater high risk Cholesterol in LDL Calc [Mas s/Vol]Ordered By: Arnulfo Aviles on 04-09-2024 Cholesterol in LDL [Mass/Vol] 90 mg/dL 0-100 [facility] Comment on above: LDL ATP III CLASSIFI CATIONLDL less than 100 mg/dL OptimalLDL 100-129 mg/dL Near or above optimalLDL 130-159 mg/dL Borderline highLDL 160-189 mg/dL HighLDL greater than 189 mg/dL Very high Cholesterol in VLDL Calc [Ma ss/Vol]Ordered By: Arnulfo Aviles on 04-09-2024 Cholesterol in VLDL [Mass/Vol] 16 mg/dL [facility] Serum or plasma high density lipoprotein (HDL) cholesterol measurementOrdered By: Arnulfo Aviles on 04-09-2024 Cholesterol in HDL [Mass/Vol] 44 mg/dL 23-92 [facility] Comment on above: HDL CHOL ATP-III CLA SSIFICATION Cardiovascular RiskHDL > or equal to 60 mg/dL LOWHDL < 40 mg/dL HIGH Serum or plasma total choles terol/high density lipoprotein (HDL) cholesterol mass ratOrdered By: Arnulfo Aviles on 04-09-2024 Cholesterol.total/Cho lesterol in HDL [Mass ratio] 3.4 {ratio} <5.0 [facility] Thyrotropin [Units/volume] i n Serum or PlasmaOrdered By: Arnulfo Aviles on 04-09-2024 TSH Qn 2.01 m[IU]/L 0.45-5.33 [facility] Triglyceride [Mass/volume] i n Serum or PlasmaOrdered By: Arnulfo Aviles on 04-09-2024 Triglyceride [Mass/Vol] 82 mg/dL 0-149 [facility] Comment on above: TRIG ATP III CLASSIF ICATIONTRIG less than 150 mg/dL NormalTRIG 150-199 mg/dL Borderline highTRIG 200-500 mg/dL High TRIG greater than 500 mg/dL Very highStandard traceable to the Center for Disease Conrtrol and Prevention (CDC) test method. Vitamin D+Metabolites [Mass/ volume] in Serum or PlasmaOrdered By: Arnulfo Aviles on 04-09-2024 Vitamin D+Metabolites [Mass/Vol] 26.2 ng/mL 30-100 [facility] Comment on above: VITAMIN D STATUS 25( [place])VITAMIN D RANGE (ng/mL) Deficient <20 Insufficient 20 to <30Sufficient 30 to 100Reference: José Miguel MF,Jennifer NC, Mady MARTI, et al. Evaluation,treatment, and prevention of vitamin D deficiency; an Endocrine Society clinical practice guideline. JCEM. 2010; 96(7):1911-30. Patient Letter FTon 2023 Patient Letter [facility], [place]23 DIANA BARRIGA [address] [place] [phone] : 1990 Dear Diana, You missed your [...] [facility] [address], [place] [address] [facility] Lab Reportson 06-05-2023 Lab Reports [id number]#1 .00CD:127 [facility] Reminderson 04-24-2023 Reminders - From: Whitney Collier [...] with the results. duplicate message [facility] Operative Reporton Operative Report [id number]#1. 00CD:127 [facility] RAD - MISCon 04-10-2023 RAD - MISC [id number]#1 .00CD:127 [facility] Lab Reportson 04-06-2023 Lab Reports [id number]#1 .00CD:127 [facility] Lab Reports [id number]#1 .00CD:127 [facility] Lab Reportson 03-23-2023 Lab Reports [id number]#1 .00CD:127 [facility] Lab Reports [id number] .00CD:127 Normal [facility] Lab Reports [id number] .00CD:127 Normal [facility] RAD - CT Reporton 03-23-2023 RAD - CT Report [id number] .00CD:127 Normal [facility] RAD - CT Report [id number] .00CD:127 Normal [facility] Ambulatory Visit Summaryon 0 03-20-2023 Ambulatory [...] Where: [facility] [address] [place] [address]- Medications What When Instructions Unchanged olanzapine-samidorpha n [...] b (more content not included)... [facility] Consent for Procedure/Surger yon 03-20-2023 Consent for Procedure/Surgery [id number]#1 .00CD:127 [facility] Patient Educationon 03-20-20 23 Patient Education Nephrology [...] Spinach (cooked), rhubarb, beets, sweet potatoes, and Welsh chard. ? Peanuts. ? Potato chips, syriac fries, and baked potatoes with skin on. ? Nuts and nut products. ? Chocolate. ? If you regularly take a diuretic medicine, make sure to eat at least 1 or 2 servings of fruits or vegetables that are high in potassium each day. These include: ? Avocado. ? Banana. ? [place], prune, carrot, or tomato juice. ? Baked [...] fish oil, or vitamin B6. ? Take zecy-fwx-noxdiid and prescription medicines only as told by your health care provider. These include supplements. What foods should I limit? Limit your in (more content not included)... Normal [facility] Urology Office/Clinic Noteon 03-20-2023 Urology Office/Clinic [...] Lt kidney pain. Did got to the [place] ER. DX'd & treated for UTI. (NEG [...] L. Ox slightly elevated. Pt presented to [facility] ER on 03/06/23 due to L [...] mg qd. SEs discussed. Rx sent to [facility]. -Electrolyte panel 4 weeks to the day [...] MD, URL [facility] [address] [place] [address]- Additional Instructions: schedule R ESWL Patient Education [...] kidney s (more content not included)... Normal [facility] Comment on above: Result Comment: Elec tronically Signed By: Nona RAYGOZA MD\.br\Date and Time Signed: 03/20/23 11:30 EDT\.br\Electronically Co-Signed By: Whitney Collier\.br\Date and Time Co-Signed: 03/20/23 11:28 EDT CBC AUTO DIFFon 02-16-2023 BASO # 0.1 103/ul Normal 0.0-0.1 [facility] Comment on above: Performed By: #### U KJ 24 #### [facility] [address] [address] [address] Ramses Dumas Basophils/100 WBC (Bld) 0.5 % Normal 0.2-2.0 [facility] Comment on above: Performed By: #### U KJ 24 #### [facility] [address] [address] [address] Ramses Dumas EO # 0.0 103/ul Normal 0.0-0.7 [facility] Comment on above: Performed By: #### U KJ 24 #### [facility] [address] [place] [address] Dr. Ramses Dumas Eosinophils/100 WBC (Bld) 0.4 % Critically low 0.9-7.0 [facility] Comment on above: Performed By: #### U KJ 24 #### [facility] [address] [place] [address] Dr. Ramses Dumas Erythrocyte distribution width (RBC) [Ratio] 13.7 % Normal 11.0-15.0 [facility] Comment on above: Performed By: #### U KJ 24 #### [facility] [address] [place] [address] Dr. Ramses Dumas Hematocrit (Bld) [Volume fraction] 45.1 % Normal 36.0-48.0 [facility] Comment on above: Performed By: #### U KJ 24 #### [facility] [address] [place] [address] Dr. Ramses Dumas Hemoglobin (Bld) [Mass/Vol] 14.3 g/dL Normal 12.0-16.0 [facility] Comment on above: Performed By: #### U KJ 24 #### [facility] [address] [place] [address] Dr. Ramses Dumas IG # 0.02 10e3/ul Normal 0.00-0.03 [facility] Comment on above: Performed By: #### U KJ 24 #### [facility] [address] [place] [address] Dr. Ramses Dumas IG % 0.2 % Normal 0.0-0.5 [facility] Comment on above: Performed By: #### U KJ 24 #### [facility] [address] [place] [address] Dr. Ramses Dumas LYMPH # 2.5 103/ul Normal 1.2-3.8 [facility] Comment on above: Performed By: #### U KJ 24 #### [facility] [address] [place] [address] Dr. Ramses Dumas Lymphocytes/100 WBC (Bld) 26.4 % Normal 20.5-60.0 [facility] Comment on above: Performed By: #### U KJ 24 #### [facility] [address] [address] [address] Ramses Dumas MANUAL DIFF REQ NO Normal [place] Comment on above: Performed By: #### U KJ 24 #### [facility] [address] [place] [address] Dr. Ramses Dumas MCH (RBC) [Entitic mass] 25.6 pg Critically low 26.7-34.0 [facility] Comment on above: Performed By: #### U KJ 24 #### [facility] [address] [place] [address] Dr. Ramses Dumas MCHC (RBC) [Mass/Vol] 31.7 g/dL Normal 29.9-35.2 [facility] Comment on above: Performed By: #### U KJ 24 #### [facility] [address] [place] [address] Dr. Ramses Dumas MCV (RBC) [Entitic vol] 80.7 fL Critically low 81.0-99.0 [facility] Comment on above: Performed By: #### U KJ 24 #### [facility] [address] [place] [address] Dr. Ramses Dumas MONO # 0.7 103/ul Normal 0.3-0.8 [facility] Comment on above: Performed By: #### U KJ 24 #### [facility] [address] [place] [address] Dr. Ramses Dumas Monocytes/100 WBC (Bld) 7.6 % Normal 1.7-12.0 [facility] Comment on above: Performed By: #### U KJ 24 #### [facility] [address] [place] [address] Dr. Ramses Dumas NEUT # 6.1 103/ul Normal 1.4-6.5 [facility] Comment on above: Performed By: #### U KJ 24 #### [facility] [address] [place] [address] Dr. Ramses Dumas Neutrophils/100 WBC (Bld) 64.9 % Normal 43.0-75.0 [facility] Comment on above: Performed By: #### U KJ 24 #### [facility] [address] [address] [address] Ramses Dumas Platelet mean volume (Bld) [Entitic vol] 11.0 fL Normal 9.5-13.5 [facility] Comment on above: Performed By: #### U KJ 24 #### [facility] [address] [address] [address] Ramses Dumas PLT 270 103/ul Normal 150-450 [facility] Comment on above: Performed By: #### U KJ 24 #### [facility] [address] [address] [address] Ramses Dumas RBC 5.59 106/ul Critically high 4.20-5.40 [facility] Comment on above: Performed By: #### U KJ 24 #### [facility] [address] [place] [address] Dr. Ramses Dumas WBC 9.4 103/ul Normal 4.0-11.0 [facility] Comment on above: Performed By: #### U KJ 24 #### [facility] [address] [place] [address] ABD/PELV W CONon [...] FARTUN NOVOA Date: 2023-02-16 18:21 Normal [facility] URINE PROFILEon 3 Bilirubin Ql (U) SMALL Abnormal NEGATIVE [facility] Comment on above: Performed By: #### C MP #### [facility] [address] [place] [address] Dr. Ramses Dumas Clarity (U) CLEAR Normal CLEAR [facility] Comment on above: Performed By: #### C MP #### [facility] [address] [place] [address] Dr. Ramses Dumas Color (U) YELLOW Normal YELLOW [facility] Comment on above: Performed By: #### C MP #### [facility] [address] [place] [address] Dr. Ramses Dumas ERUCARLOS ENRIQUE A micrscopic examination will be performed if indicated. Normal [facility] Comment on above: Performed By: #### C MP #### [facility] [address] [place] [address] Dr. Ramses Dumas Glucose Ql (U) Negative Normal NEGATIVE [facility] Comment on above: Performed By: #### C MP #### [facility] [address] [place] [address] Dr. Ramses Dumas Hemoglobin Ql (U) Negative Normal NEGATIVE [facility] Comment on above: Performed By: #### C MP #### [facility] [address] [place] [address] Dr. Ramses Dumas Ketones Ql (U) 40 mg/dl Abnormal NEGATIVE [facility] Comment on above: Performed By: #### C MP #### [facility] [address] [place] [address] Dr. Ramses Dumas LEUKOCYTES SMALL Abnormal NEGATIVE [facility] Comment on above: Performed By: #### C MP #### [facility] [address] [place] [address] Dr. Ramses Dumas Nitrite Ql (U) Negative Normal NEGATIVE [facility] Comment on above: Performed By: #### C MP #### [facility] [address] [place] [address] Dr. Ramses Dumas pH (U) 7.0 [pH] Normal 5-9 [facility] Comment on above: Performed By: #### C MP #### [facility] [address] [place] [address] Dr. Ramses Dumas Protein (U) [Mass/Vol] 30 mg/dL Abnormal NEGATIVE/ TRACE [facility] Comment on above: Performed By: #### C MP #### [facility] [address] [place] [address] Dr. Ramses Dumas SPEC GRAVITY 1.020 Normal 1.005-<=1.02 5 [facility] Comment on above: Performed By: #### C MP #### [facility] [address] [place] [address] Dr. Ramses Dumas UR MICRO IND INDICATED Normal [facility] Comment on above: Performed By: #### C MP #### [facility] [address] [place] [address] Dr. Ramses Dumas Urobilinogen Qn (U) 4 {Lucero'U}/dL Abnormal 0.2 - 1.0 [facility] Comment on above: Performed By: #### C MP #### [facility] [address] [place] [address] Dr. Ramses Dumas LIPASEon 02-16-2023 Lipase [Catalytic activity/Vol] 67.0 U/L Critically low 73.0-393.0 [facility] Comment on above: Performed By: #### U RCX #### [facility] [address] [address] [address] Ramses Dumas LIVER PROFILEon 02-16-2023 Albumin [Mass/Vol] 4.1 g/dL Normal 3.4-5.0 [facility] Comment on above: Performed By: #### U RCX #### [facility] [address] [place] [address] Dr. Ramses Dumas Albumin/Globulin [Mass ratio] 1.0 {ratio} Normal [facility] Comment on above: Performed By: #### U RCX #### [facility] [address] [address] [address] Ramses Dumas ALP [Catalytic activity/Vol] 85 U/L Normal 46-116 [facility] Comment on above: Performed By: #### U RCX #### [facility] [address] [place] [address] Dr. Ramses Dumas ALT [Catalytic activity/Vol] 61 U/L Critically high 14-59 [facility] Comment on above: Performed By: #### U RCX #### [facility] [address] [place] [address] Dr. Ramses Dumas AST [Catalytic activity/Vol] 43 U/L Critically high 15-37 [facility] Comment on above: Performed By: #### U RCX #### [facility] [address] [place] [address] Dr. Ramses Dumas BILI, CONJUGATED 0.1 mg/dL Normal 0.0-0.2 [facility] Comment on above: Performed By: #### U RCX #### [facility] [address] [place] [address] Dr. Ramses Dumas Bilirubin [Mass/Vol] 0.7 mg/dL Normal 0.2-1.0 [facility] Comment on above: Performed By: #### U RCX #### [facility] [address] [place] [address] Dr. Ramses Dumas Globulin (S) [Mass/Vol] 4.2 g/dL Normal [facility] Comment on above: Performed By: #### U RCX #### [facility] [address] [address] [address] Ramses Dumas Protein [Mass/Vol] 8.3 g/dL Critically high 6.4-8.[address] [facility] Comment on above: Performed By: #### U RCX #### [facility] [address] [address] [address] Ramses Dumas URon 02-16-2023 , QUAL Negative Normal NEGATIVE [place] Comment on above: Performed By: #### C MP #### [facility] [address] [place] [address] Dr. Ramses Dumas PROF CHEM 8 (BAS METB)on Anion gap [Moles/Vol] 14.2 mmol/L Normal [facility] Comment on above: Performed By: #### U RCX #### [facility] [address] [place] [address] Dr. Ramses Dumas Calcium [Mass/Vol] 9.5 mg/dL Normal 8.5-10.1 [facility] Comment on above: Performed By: #### U RCX #### [facility] [address] [address] [address] Ramses Dumas Chloride [Moles/Vol] 102 mmol/L Normal 98-107 [facility] Comment on above: Performed By: #### U RCX #### [facility] [address] [place] [address] Dr. Ramses Dumas CO2 [Moles/Vol] 27.5 mmol/L Normal 21.0-32.0 [facility] Comment on above: Performed By: #### U RCX #### [facility] [address] [place] [address] Dr. Ramses Dumas Creatinine [Mass/Vol] 0.71 mg/dL Normal 0.55-1.02 [facility] Comment on above: Performed By: #### U RCX #### [facility] [address] [place] [address] Dr. Ramses Dumas EGFR-AF CROATIAN >60 Normal >=60 [facility] Comment on above: Performed By: #### U RCX #### [facility] [address] [address] [address] Ramses Dumas EGFR-NON AF CROATIAN >60 Normal >=60 [facility] Comment on above: Performed By: #### U RCX #### [facility] [address] [address] [address] Ramses Dumas Glucose [Mass/Vol] 90 mg/dL Normal 74-106 [facility] Comment on above: Performed By: #### U RCX #### [facility] [address] [address] [address] Ramses Dumas Potassium [Moles/Vol] 3.7 mmol/L Normal 3.5-5.1 [facility] Comment on above: Performed By: #### U RCX #### [facility] [address] [place] [address] Dr. Ramses Dumas Sodium [Moles/Vol] 140 mmol/L Normal 136-145 [facility] Comment on above: Performed By: #### U RCX #### [facility] [address] [place] [address] Dr. Ramses Dumas Urea nitrogen [Mass/Vol] 6.0 mg/dL Critically low 7.0-18.0 [facility] Comment on above: Performed By: #### U RCX #### [facility] [address] [place] [address] Dr. Ramses Dumas Urea nitrogen/Creatinine [Mass ratio] 8.5 mg/mg Normal [facility] Comment on above: Performed By: #### U RCX #### [facility] [address] [place] [address] Dr. Ramses Dumas URINE MICROSCOPIC ONLYon BACTERIA NONE SEEN Normal NONE SEEN [facility] Comment on above: Performed By: #### U KJ 24 #### [facility] [address] [place] [address] Dr. Ramses Dumas Bacteria identified Cx Nom (U) NOT INDICATED Normal [facility] Comment on above: Performed By: #### U KJ 24 #### [facility] [address] [place] [address] Dr. Ramses Dumas CAST NONE SEEN Normal NONE SEEN [facility] Comment on above: Performed By: #### U KJ 24 #### [facility] [address] [place] [address] Dr. Ramses Dumas Crystals LM Nom (Urine sed) NONE SEEN Normal NONE SEEN [facility] Comment on above: Performed By: #### U KJ 24 #### [facility] [address] [place] [address] Dr. Ramses Dumas Epithelial cells LM Ql (Urine sed) FEW Abnormal NONE SEEN /RARE [facility] Comment on above: Performed By: #### U KJ 24 #### [facility] [address] [place] [address] Dr. Ramses Dumas MUCOUS SMALL Abnormal NONE SEEN [facility] Comment on above: Performed By: #### U KJ 24 #### [facility] [address] [place] [address] Dr. Ramses Dumas RBC NONE SEEN Abnormal 0-2 [facility] Comment on above: Performed By: #### U KJ 24 #### [facility] [address] [place] [address] Dr. Ramses Dumas WBC 0-2 Abnormal NONE SEEN [facility] Comment on above: Performed By: #### U KJ 24 #### [facility] [address] [place] [address] Dr. Ramses Dumas PAP ACOG PANEL 2: 30 to 65on 02-10-2023 . . Normal [facility] Comment on above: Result Comment: Perf ormed at: WB Performed By: #### U RCX #### [facility] [address] [place] [address] Dr. Ramses Dumas Age Gdln ACOG Testing 30-65 Normal [facility] Comment on above: Performed By: #### U RCX #### [facility] [address] [place] [address] Dr. Ramses Dumas DIAGNOSIS: Comment Normal [facility] Comment on above: Result Comment: NEGA TIVE FOR INTRAEPITHELIAL LESION OR MALIGNANCY. REACTIVE CELLULAR CHANGES AND/OR REPAIR ARE PRESENT. Performed at: WB Performed By: #### U RCX #### [facility] [address] [address] [address] Ramses Dumas Electronically signed by: Comment Normal [facility] Comment on above: Result Comment: Chelsey Boston MD, Pathologist Performed at: WB Performed By: #### U RCX #### [facility] [address] [address] [address] Ramses Dumas HPV Aptima Negative Normal Negative [facility] Comment on above: Result Comment: This nucleic acid amplification test detects fourteen high-risk HPV types (16,18,31,33,35,39,45,51,52,56,58,59,66,68) without differentiation. Performed at: =G Performed By: #### U RCX #### [facility] [address] [place] [address] Dr. Ramses Dumas HPV Genotype Reflex Comment Normal [facility] Comment on above: Result Comment: Crit eria not met, HPV Genotype not performed. Performed at: WB Performed By: #### U RCX #### [facility] [address] [place] [address] Dr. Ramses Dumas Methodology: Comment Normal [facility] Comment on above: Result Comment: This liquid based ThinPrep(R) pap test was screened with the use of an image guided system. Performed at: WB Performed By: #### U RCX #### [facility] [address] [place] [address] Dr. Ramses Dumas Note: Comment [facility] [...] WB Performed By: #### U RCX #### [facility] [address] [place] [address] Dr. Ramses Dumas Performed by: Comment Normal [facility] Comment on above: Result Comment: Cuca Briceno, National [employer]s Recruiter (ASCP) Performed at: WB Performed By: #### U RCX #### [facility] [address] [address] [address] Ramses Dumas Specimen adequacy: Comment Normal [facility] Comment on above: Result Comment: Sati sfactory for evaluation. Endocervical and/or squamous metaplastic cells (endocervical component) are present. Performed at: WB Performed By: #### U RCX #### [facility] [address] [address] [address] Ramses Dumas Lab Reportson 12-29-2022 Lab Reports [id number] .00CD:127 Normal [facility] RAD - MISCon 12-21-2022 RAD - MISC [id number]#1 .00CD:127 Normal [facility] OXALATE 24HR URINEon 023 Oxalates, Urine 44 mg/L Normal Undefined [place] Comment on above: Performed By: #### U KJ 24 #### [facility] [address] [place] [address] Dr. Ramses Dumas Oxalates, Urine 24hr 44 mg/24 hr Critically high 4-31 [facility] Comment on above: Performed By: #### U KJ 24 #### [facility] [address] [place] [address] Dr. Ramses Dumas CITRATE URINE 24HRon 023 Citric Acid, U, 24hr 658 mg/24 hr Normal 320-1240 Th [facility] Comment on above: Result Comment: This test was developed and its performance characteristics determined by [facility]. It has not been cleared or approved by the Food and Drug Administration. Performed By: #### C ITRATU #### [facility] [address] [place] [address] Dr. Ramses Dumas Citric Acid, Urine 658 mg/L Normal Undefined [facility] Comment on above: Performed By: #### C ITRATU #### [facility] [address] [place] [address] Dr. Ramses Dumas MAGNESIUM 24HR URINEon 12-17 Magnesium 24hr Urine 119.0 mg/24 hr Normal 12.0-293.0 [facility] Comment on above: Performed By: #### U RCX #### [facility] [address] [place] [address] Dr. Ramses Dumas Magnesium UR 11.9 mg/dL Normal Not Estab. [facility] Comment on above: Performed By: #### U RCX #### [facility] [address] [place] [address] Dr. Ramses Dumas PHOSPHORUS 24HR URINEon Phosphorus, Urine 81.4 mg/dL Normal Not Estab. The [facility] Comment on above: Performed By: #### B LDCX2 #### [facility] [address] [place] [address] Dr. Ramses Dumas Phosphorus, Urine 24hr 814 mg/24 hr Normal 261-1078 [facility] Comment on above: Performed By: #### B LDCX2 #### [facility] [address] [place] [address] Dr. Ramses Dumas PTH INTACTon 12-17-2022 PTH, Intact 46 pg/mL Normal 15-65 [facility] Comment on above: Performed By: #### U RCX #### [facility] [address] [place] [address] Dr. Ramses Dumas URIC ACID 24 HR URINEon Uric Acid, Urine 69.9 mg/dL Normal Not Estab. The [facility] Comment on above: Performed By: #### U KJ 24 #### [facility] [address] [place] [address] Dr. Ramses Dumas Uric Acid, Urine 24hr 699.0 mg/24 hr Normal 173.7-902. 1 [facility] Comment on above: Performed By: #### U KJ 24 #### [facility] [address] [place] [address] Dr. Ramses Dumas BUNon 12-16-2022 Urea nitrogen [Mass/Vol] 7.0 mg/dL Normal 7.0-18.0 [facility] Comment on above: Performed By: #### C BC #### [facility] [address] [place] [address] Dr. Ramses Dumas CALCIUMon 12-16-2022 Calcium [Mass/Vol] 8.8 mg/dL Normal 8.5-10.1 [facility] Comment on above: Performed By: #### C BC #### [facility] [address] [place] [address] Dr. Ramses Dumas CALCIUM 24 HR URINEon 2022 CALC, 24 HR UR 295.0 mg/24 hr Normal 100.0-300.0 [facility] Comment on above: Performed By: #### B LDCX2 #### [facility] [address] [place] [address] Dr. Ramses Dumas UR CALCIUM 29.5 mg/dL Critically high 5.1-21.0 [place] Comment on above: Performed By: #### B LDCX2 #### [facility] [address] [place] [address] Dr. Ramses Dumas CHLORIDEon 12-16-2022 Chloride [Moles/Vol] 105 mmol/L Normal 98-107 [facility] Comment on above: Performed By: #### C BC #### [facility] [address] [place] [address] Dr. Ramses Dumas CO2on 12-16-2022 CO2 [Moles/Vol] 26.4 mmol/L Normal 21.0-32.0 [facility] Comment on above: Performed By: #### C MP #### [facility] [address] [place] [address] Dr. Ramses Dumas CREA 24 HR URINEon 3 CREA, 24 HR UR 2337.30 mg/24 hr Critically high 800.00 -1,800 .00 [facility] Comment on above: Performed By: #### C VDTBH #### [facility] [address] [place] [address] Dr. Ramses Dumas URINE CREAT 233.73 mg/dL Normal 20.00-300.00 [facility] Comment on above: Performed By: #### C VDTBH #### [facility] [address] [address] [address] Ramses Dumas CREATININEon 12-16-2022 Creatinine [Mass/Vol] 0.70 mg/dL Normal 0.55-1.02 [facility] Comment on above: Performed By: #### C MP #### [facility] [address] [place] [address] Dr. Ramses Dumas EGFR-AF CROATIAN >60 Normal >=60 [facility] Comment on above: Performed By: #### C MP #### [facility] [address] [place] [address] Dr. Ramses Dumsa EGFR-NON AF CROATIAN >60 Normal >=60 [facility] Comment on above: Performed By: #### C MP #### [facility] [address] [address] [address] Ramses Dumas NAon 12-16-2022 Sodium [Moles/Vol] 139 mmol/L Normal 136-145 [facility] Comment on above: Performed By: #### C MP #### [facility] [address] [place] [address] Dr. Ramses Dumas POTASSIUMon 12-16-2022 Potassium [Moles/Vol] 4.0 mmol/L Normal 3.5-5.1 [facility] Comment on above: Performed By: #### C MP #### [facility] [address] [place] [address] Dr. Ramses Dumas SODIUM 24 HR URINEon 023 NA, 24 HR UR 193 mmol/24 hr Normal 40-220 [facility] Comment on above: Performed By: #### C VDTBH #### [facility] [address] [place] [address] Dr. Ramses Dumas Sodium (U) [Moles/Vol] 193 mmol/L Critically high 30-90 [facility] Comment on above: Performed By: #### C VDTBH #### [facility] [address] [place] [address] Dr. Ramses Dumas UR TOT VOL 1000 ml/24 HR Normal [facility] Comment on above: Performed By: #### C VDTBH #### [facility] [address] [place] [address] Dr. Ramses Dumas Performed By: #### B LDCX2 #### [facility] [address] [place] [address] Dr. Ramses Dumas URIC ACID SERUMon 12-16-2022 Urate [Mass/Vol] 5.6 mg/dL Normal 2.6-6.0 [facility] Comment on above: Performed By: #### C MP #### [facility] [address] [place] [address] Dr. Ramses Dumas XR KUB 1 VIEWon [...] JENNIFER GATES Date: 2022-12-15 08:26 Normal [facility] CBC AUTO DIFFon 11-07-2022 BASO # 0.0 103/ul Normal 0.0-0.1 [facility] Comment on above: Performed By: #### U RCX #### [facility] [address] [place] [address] Dr. Ramses Dumas Basophils/100 WBC (Bld) 0.7 % Normal 0.2-2.0 [facility] Comment on above: Performed By: #### U RCX #### [facility] [address] [place] [address] Dr. Ramses Dumas EO # 0.1 103/ul Normal 0.0-0.7 [facility] Comment on above: Performed By: #### U RCX #### [facility] [address] [place] [address] Dr. Ramses Dumas Eosinophils/100 WBC (Bld) 1.9 % Normal 0.9-7.0 [facility] Comment on above: Performed By: #### U RCX #### [facility] [address] [place] [address] Dr. Ramses Dumas Erythrocyte distribution width (RBC) [Ratio] 13.6 % Normal 11.0-15.0 [facility] Comment on above: Performed By: #### U RCX #### [facility] [address] [place] [address] Dr. Ramess Dumas Hematocrit (Bld) [Volume fraction] 37.3 % Normal 36.0-48.0 [facility] Comment on above: Performed By: #### U RCX #### [facility] [address] [place] [address] Dr. Ramses Dumas Hemoglobin (Bld) [Mass/Vol] 12.2 g/dL Normal 12.0-16.0 [facility] Comment on above: Performed By: #### U RCX #### [facility] [address] [place] [address] Dr. Ramses Dumas IG # 0.02 10e3/ul Normal 0.00-0.03 [facility] Comment on above: Performed By: #### U RCX #### [facility] [address] [place] [address] Dr. Ramses Dumas IG % 0.3 % Normal 0.0-0.5 [facility] Comment on above: Performed By: #### U RCX #### [facility] [address] [place] [address] Dr. Ramses Dumas LYMPH # 2.3 103/ul Normal 1.2-3.8 [facility] Comment on above: Performed By: #### U RCX #### [facility] [address] [place] [address] Dr. Ramses Dumas Lymphocytes/100 WBC (Bld) 39.6 % Normal 20.5-60.0 [facility] Comment on above: Performed By: #### U RCX #### [facility] [address] [place] [address] Dr. Ramses Dumas MANUAL DIFF REQ NO Normal [place] Comment on above: Performed By: #### U RCX #### [facility] [address] [address] [address] Ramses Dumas MCH (RBC) [Entitic mass] 26.4 pg Critically low 26.7-34.0 [facility] Comment on above: Performed By: #### U RCX #### [facility] [address] [place] [address] Dr. Ramses Dumas MCHC (RBC) [Mass/Vol] 32.7 g/dL Normal 29.9-35.2 [facility] Comment on above: Performed By: #### U RCX #### [facility] [address] [place] [address] Dr. Ramses Dumas MCV (RBC) [Entitic vol] 80.7 fL Critically low 81.0-99.0 [facility] Comment on above: Performed By: #### U RCX #### [facility] [address] [place] [address] Dr. Ramses Dumas MONO # 0.5 103/ul Normal 0.3-0.8 [facility] Comment on above: Performed By: #### U RCX #### [facility] [address] [place] [address] Dr. Ramses Dumas Monocytes/100 WBC (Bld) 8.0 % Normal 1.7-12.0 [facility] Comment on above: Performed By: #### U RCX #### [facility] [address] [place] [address] Dr. Ramses Dumas NEUT # 2.9 103/ul Normal 1.4-6.5 [facility] Comment on above: Performed By: #### U RCX #### [facility] [address] [place] [address] Dr. Ramses Dumas Neutrophils/100 WBC (Bld) 49.5 % Normal 43.0-75.0 [facility] Comment on above: Performed By: #### U RCX #### [facility] [address] [place] [address] Dr. Ramses Dumas Platelet mean volume (Bld) [Entitic vol] 9.0 fL Critically low 9.5-13.5 [facility] Comment on above: Performed By: #### U RCX #### [facility] [address] [place] [address] Dr. Ramses Dumas PLT 337 103/ul Normal 150-450 [facility] Comment on above: Performed By: #### U RCX #### [facility] [address] [place] [address] Dr. Ramses Dumas RBC 4.62 106/ul Normal 4.20-5.40 [facility] Comment on above: Performed By: #### U RCX #### [facility] [address] [place] [address] Dr. Ramses Dumas WBC 5.9 103/ul Normal 4.0-11.0 [facility] Comment on above: Performed By: #### U RCX #### [facility] [address] [place] [address] Dr. Ramses Dumas POINT OF CARE GLUCOSEon 10-20 Glucose [Mass/Vol] 115 mg/dL Critically high 74-106 [facility] Comment on above: Performed By: #### C VDTBH #### [facility] [address] [place] [address] Dr. Ramses Dumas PREG QUANT HCGon 11-07-2022 HCG QUANT <1 Normal [facility] Comment on above: Performed By: #### C VDTBH #### [facility] [address] [place] [address] Dr. Ramses Dumas HCG RANGE SEE BELOW Normal [facility] Comment on above: Result Comment: 5-50 0.2-1 WEEK 50-500 1-2 WEEKS 100-5,000 2-3 WEEKS 500-10,000 3-4 WEEKS 1,000-50,000 4-5 WEEKS 10,000-100,000 5-6 WEEKS 15,000-200,000 6-8 WEEKS 10,000-100,000 2-3 MONTHS Performed By: #### C VDTBH #### [facility] [address] [place] [address] Dr. Ramses Dumas US PELVIS AND TRANSVAGon [...] cm right ovarian simple cyst Normal [facility] CBC AUTO DIFFon 11-03-2022 BASO # 0.1 103/ul Normal 0.0-0.1 [facility] Comment on above: Performed By: #### U RCX #### [facility] [address] [address] [address] Ramses Dumas Basophils/100 WBC (Bld) 0.8 % Normal 0.2-2.0 [facility] Comment on above: Performed By: #### U RCX #### [facility] [address] [address] [address] Ramses Dumas EO # 0.1 103/ul Normal 0.0-0.7 [facility] Comment on above: Performed By: #### U RCX #### [facility] [address] [address] [address] Ramses Dumas Eosinophils/100 WBC (Bld) 1.4 % Normal 0.9-7.0 [facility] Comment on above: Performed By: #### U RCX #### [facility] [address] [address] [address] Ramses Dumas Erythrocyte distribution width (RBC) [Ratio] 13.4 % Normal 11.0-15.0 [facility] Comment on above: Performed By: #### U RCX #### [facility] [address] [place] [address] Dr. Ramses Dumas Hematocrit (Bld) [Volume fraction] 38.8 % Normal 36.0-48.0 [facility] Comment on above: Performed By: #### U RCX #### [facility] [address] [place] [address] Dr. Ramses Dumas Hemoglobin (Bld) [Mass/Vol] 12.7 g/dL Normal 12.0-16.0 [facility] Comment on above: Performed By: #### U RCX #### [facility] [address] [place] [address] Dr. Ramses Dumas IG # 0.01 10e3/ul Normal 0.00-0.03 [facility] Comment on above: Performed By: #### U RCX #### [facility] [address] [place] [address] Dr. Ramses Dumas IG % 0.1 % Normal 0.0-0.5 [facility] Comment on above: Performed By: #### U RCX #### [facility] [address] [place] [address] Dr. Ramses Dumas LYMPH # 1.9 103/ul Normal 1.2-3.8 [facility] Comment on above: Performed By: #### U RCX #### [facility] [address] [place] [address] Dr. Ramses Dumas Lymphocytes/100 WBC (Bld) 26.4 % Normal 20.5-60.0 [facility] Comment on above: Performed By: #### U RCX #### [facility] [address] [place] [address] Dr. Ramses Dumas MANUAL DIFF REQ NO Normal [place] Comment on above: Performed By: #### U RCX #### [facility] [address] [place] [address] Dr. Ramses Dumas MCH (RBC) [Entitic mass] 26.3 pg Critically low 26.7-34.0 [facility] Comment on above: Performed By: #### U RCX #### [facility] [address] [address] [address] Ramses Dumas MCHC (RBC) [Mass/Vol] 32.7 g/dL Normal 29.9-35.2 [facility] Comment on above: Performed By: #### U RCX #### [facility] [address] [address] [address] Ramses Dumas MCV (RBC) [Entitic vol] 80.5 fL Critically low 81.0-99.0 [facility] Comment on above: Performed By: #### U RCX #### [facility] [address] [address] [address] Ramses Dumas MONO # 0.6 103/ul Normal 0.3-0.8 [facility] Comment on above: Performed By: #### U RCX #### [facility] [address] [address] [address] Ramses Dumas Monocytes/100 WBC (Bld) 8.2 % Normal 1.7-12.0 [facility] Comment on above: Performed By: #### U RCX #### [facility] [address] [place] [address] Dr. Ramses Dumas NEUT # 4.5 103/ul Normal 1.4-6.5 [facility] Comment on above: Performed By: #### U RCX #### [facility] [address] [address] [address] Ramses Dumas Neutrophils/100 WBC (Bld) 63.1 % Normal 43.0-75.0 [facility] Comment on above: Performed By: #### U RCX #### [facility] [address] [address] [address] Ramses Dumas Platelet mean volume (Bld) [Entitic vol] 8.9 fL Critically low 9.5-13.5 [facility] Comment on above: Performed By: #### U RCX #### [facility] [address] [place] [address] Dr. Ramses Dumas PLT 340 103/ul Normal 150-450 [facility] Comment on above: Performed By: #### U RCX #### [facility] [address] [address] [address] Ramses Dumas RBC 4.82 106/ul Normal 4.20-5.40 [facility] Comment on above: Performed By: #### U RCX #### [facility] [address] [address] [address] Ramses Dumas WBC 7.1 103/ul Normal 4.0-11.0 [facility] Comment on above: Performed By: #### U RCX #### [facility] [address] [address] [address] Ramses Dumas Covid-19 PCR ([facility])on 10-19 SARS-CoV-2 (COVID-19) RNA FRANCESCA+probe Ql (Unsp spec) Not detected Normal NOT DETECTED [facility] Comment on above: Result Comment: This test is not yet approved or cleared by the [place] FDA. When there are no FDA-approved or cleared tests available, and other criteria are met, FDA can make tests available under an emergency access mechanism called an Emergency Use Authorization (EUA). The EUA for this test is supported by the [place] of Health and Human Service's (HHS's) declaration [...] SARS-CoV-2. Performed By: #### U RCX #### [facility] [address] [place] [address] Dr. Ramses Dumas FREE T4on 11-03-2022 Free T4 [Mass/Vol] 0.99 ng/dL Normal 0.76-1.46 [facility] Comment on above: Performed By: #### B LDCX2 #### [facility] [address] [place] [address] Dr. Ramses Dumas GLYCOHEMOGLOBIN A1Con 2022 ADA RECOMMENDATION SEE BELOW Normal [facility] Comment on above: Result Comment: ADA RECOMMENDED LIMIT 4.0 - 6.0 ADA THERAPEUTIC TARGET < 7.0 ACTION SUGGESTED > 7.0 Performed By: #### C VDTBH #### [facility] [address] [place] [address] Dr. Ramses Dumas Glucose [Mass/Vol] 117 mg/dL Normal [facility] Comment on above: Performed By: #### C VDTBH #### [facility] [address] [place] [address] Dr. Ramses Dumas HbA1c (Bld) [Mass fraction] 5.7 % Normal 4.5-6.2 [facility] Comment on above: Performed By: #### C VDTBH #### [facility] [address] [place] [address] Dr. Ramses Dumas PROTIMEon 11-03-2022 INR Coag (PPP) [Relative time] 0.97 {INR} Normal [facility] Comment on above: Performed By: #### U KJ 24 #### [facility] [address] [place] [address] Dr. Ramses Dumas INR GUIDELINES SEE BELOW Normal [facility] Comment on above: Result Comment: TOÑA RED INR: 2.0 - 3.0 CONDITIONS NOT LISTED BELOW 2.5 - 3.5 FOR PROSTHETIC HEART VALVE REPLACEMENT 2.5 - 3.5 RECURRENT THROMBOSIS Performed By: #### U KJ 24 #### [facility] [address] [place] [address] Dr. Ramses Dumas PT Coag (PPP) [Time] 10.3 s Normal 9.0-11.6 [facility] Comment on above: Performed By: #### U KJ 24 #### [facility] [address] [place] [address] Dr. Ramses Dumas PTTon 11-03-2022 aPTT Coag (Bld) [Time] 27.7 s Normal 22.3-36.2 [facility] Comment on above: Performed By: #### U KJ 24 #### [facility] [address] [address] [address] Ramses Dumas TSHon 11-03-2022 TSH 0.667 uIU/mL Normal 0.358-3.740 [facility] Comment on above: Performed By: #### C VDTBH #### [facility] [address] [address] [address] Ramses Dumas PREG HCG QUALon 09-18-2022 , QUAL Negative Normal NEGATIVE [facility] Comment on above: Performed By: #### U KJ 24 #### [facility] [address] [address] [address] Ramses Dumas Covid-19 PCR ([facility])on 08-20 SARS-CoV-2 (COVID-19) RNA FRANCESCA+probe Ql (Unsp spec) Not detected Normal NOT DETECTED [facility] Comment on above: Result Comment: This test is not yet approved or cleared by the [place] FDA. When there are no FDA-approved or cleared tests available, and other criteria are met, FDA can make tests available under an emergency access mechanism called an Emergency Use Authorization (EUA). The EUA for this test is supported by the [place] of Health and Human Service's (HHS's) declaration [...] SARS-CoV-2. Performed By: #### C VDTBH #### [facility] [address] [place] [address] Dr. Ramses Dumas CBC AUTO DIFFon 09-05-2022 BASO # 0.1 103/ul Normal 0.0-0.1 [facility] Comment on above: Performed By: #### B LDCX2 #### [facility] [address] [place] [address] Dr. Ramses Dumas Basophils/100 WBC (Bld) 0.7 % Normal 0.2-2.0 [facility] Comment on above: Performed By: #### B LDCX2 #### [facility] [address] [place] [address] Dr. Ramses Dumas EO # 0.2 103/ul Normal 0.0-0.7 [facility] Comment on above: Performed By: #### B LDCX2 #### [facility] [address] [place] [address] Dr. Ramses Dumas Eosinophils/100 WBC (Bld) 2.2 % Normal 0.9-7.0 [facility] Comment on above: Performed By: #### B LDCX2 #### [facility] [address] [place] [address] Dr. Ramses Dumas Erythrocyte distribution width (RBC) [Ratio] 13.9 % Normal 11.0-15.0 [facility] Comment on above: Performed By: #### B LDCX2 #### [facility] [address] [place] [address] Dr. Ramses Dumas Hematocrit (Bld) [Volume fraction] 38.8 % Normal 36.0-48.0 [facility] Comment on above: Performed By: #### B LDCX2 #### [facility] [address] [place] [address] Dr. Ramses Dumas Hemoglobin (Bld) [Mass/Vol] 12.6 g/dL Normal 12.0-16.0 [facility] Comment on above: Performed By: #### B LDCX2 #### [facility] [address] [place] [address] Dr. Ramses Dumas IG # 0.03 10e3/ul Normal 0.00-0.03 [facility] Comment on above: Performed By: #### B LDCX2 #### [facility] [address] [place] [address] Dr. Ramses Dumas IG % 0.3 % Normal 0.0-0.5 [facility] Comment on above: Performed By: #### B LDCX2 #### [facility] [address] [place] [address] Dr. Ramses Dumas LYMPH # 2.3 103/ul Normal 1.2-3.8 [facility] Comment on above: Performed By: #### B LDCX2 #### [facility] [address] [place] [address] Dr. Ramses Dumas Lymphocytes/100 WBC (Bld) 21.3 % Normal 20.5-60.0 [facility] Comment on above: Performed By: #### B LDCX2 #### [facility] [address] [place] [address] Dr. Ramses Dumas MANUAL DIFF REQ NO Normal [place] Comment on above: Performed By: #### B LDCX2 #### [facility] [address] [place] [address] Dr. Ramses Dumas MCH (RBC) [Entitic mass] 26.4 pg Critically low 26.7-34.0 [facility] Comment on above: Performed By: #### B LDCX2 #### [facility] [address] [place] [address] Dr. Ramses Dumas MCHC (RBC) [Mass/Vol] 32.5 g/dL Normal 29.9-35.2 [facility] Comment on above: Performed By: #### B LDCX2 #### [facility] [address] [place] [address] Dr. Ramses Dumas MCV (RBC) [Entitic vol] 81.2 fL Normal 81.0-99.0 [facility] Comment on above: Performed By: #### B LDCX2 #### [facility] [address] [place] [address] Dr. Ramses Dumas MONO # 0.8 103/ul Normal 0.3-0.8 [facility] Comment on above: Performed By: #### B LDCX2 #### [facility] [address] [place] [address] Dr. Ramses Dumas Monocytes/100 WBC (Bld) 7.4 % Normal 1.7-12.0 [facility] Comment on above: Performed By: #### B LDCX2 #### [facility] [address] [place] [address] Dr. Ramses Dumas NEUT # 7.3 103/ul Critically high 1.4-6.5 [place] Comment on above: Performed By: #### B LDCX2 #### [facility] [address] [place] [address] Dr. Ramses Dumas Neutrophils/100 WBC (Bld) 68.1 % Normal 43.0-75.0 [facility] Comment on above: Performed By: #### B LDCX2 #### [facility] [address] [place] [address] Dr. Ramses Dumas Platelet mean volume (Bld) [Entitic vol] 8.8 fL Critically low 9.5-13.5 [facility] Comment on above: Performed By: #### B LDCX2 #### [facility] [address] [place] [address] Dr. Ramses Dumas PLT 323 103/ul Normal 150-450 [facility] Comment on above: Performed By: #### B LDCX2 #### [facility] [address] [place] [id number] Dr. Ramses Dumas RBC 4.78 106/ul Normal 4.20-5.40 [facility] Comment on above: Performed By: #### B [id number] #### [facility] [address] [place] [address] Dr. Ramses Dumas WBC 10.7 103/ul Normal 4.0-11.0 [facility] Comment on above: Performed By: #### B [id number] #### [facility] [address] [place] [address] Dr. Ramses Dumas CULTURE URINEon 09-05-2022 CULTURE URINE Culture Observations : LIGHT GROWTH OF MIXED GENITAL DAIANA. NO POTENTIAL PATHOGENS SEEN. Normal [facility] Comment on above: Performed By: #### U RCX #### [facility] [address] [place] [address] Dr. Ramses Dumas ER URINE PROFILEon 2 Bilirubin Ql (U) Negative Normal NEGATIVE [facility] Comment on above: Performed By: #### B [id number] #### [facility] [address] [place] [address] Dr. Ramses Dumas Clarity (U) CLOUDY Abnormal CLEAR [facility] Comment on above: Performed By: #### B [id number] #### [facility] [address] [place] [address] Dr. Ramses Dumas Color (U) YELLOW Normal YELLOW [facility] Comment on above: Performed By: #### B [id number] #### [facility] [address] [place] [address] Dr. Ramses DELEON A micrscopic examination will be performed if indicated. Normal [facility] Comment on above: Performed By: #### B [id number] #### [facility] [address] [place] [address] Dr. Ramses Dumas Glucose Ql (U) Negative Normal NEGATIVE [facility] Comment on above: Performed By: #### B [id number] #### [facility] [address] [place] [address] Dr. Ramses Dumas Hemoglobin Ql (U) LARGE Abnormal NEGATIVE [facility] Comment on above: Performed By: #### B [id number] #### [facility] [address] [place] [address] Dr. Ramses Dumas Ketones Ql (U) Negative Normal NEGATIVE [facility] Comment on above: Performed By: #### B [id number] #### [facility] [address] [place] [address] Dr. Ramses Dumas LEUKOCYTES SMALL Abnormal NEGATIVE [facility] Comment on above: Performed By: #### B LDCX2 #### [facility] [address] [place] [address] Dr. Ramses Dumas Nitrite Ql (U) Negative Normal NEGATIVE [facility] Comment on above: Performed By: #### B [id number] #### [facility] [address] [place] [address] Dr. Ramses Dumas pH (U) 6.0 [pH] Normal 5-9 [facility] Comment on above: Performed By: #### B [id number] #### [facility] [address] [place] [address] Dr. Ramses Dumas Protein (U) [Mass/Vol] 100 mg/dL Abnormal NEGATIVE/ TRACE [facility] Comment on above: Performed By: #### B [id number] #### [facility] [address] [place] [address] Dr. Ramses Dumas SPEC GRAVITY >=1.030 Abnormal 1.005-<=1.02 5 [facility] Comment on above: Performed By: #### B LDCX2 #### [facility] [address] [place] [address] Dr. Ramses Dumas UR MICRO IND INDICATED Normal [facility] Comment on above: Performed By: #### B [id number] #### [facility] [address] [place] [address] Dr. Ramses Dumas Urobilinogen Qn (U) 0.2 {Lucero'U}/dL Normal 0.2 - 1. 0 [facility] Comment on above: Performed By: #### B LDCX2 #### [facility] [address] [place] [address] Dr. Ramses Dumas URon 09-05-2022 , QUAL Negative Normal NEGATIVE [place] Comment on above: Performed By: #### B [id number] #### [facility] [address] [place] [address] Dr. Ramses Dumas PROF CHEM 8 (BAS METB)on Anion gap [Moles/Vol] 11.7 mmol/L Normal [facility] Comment on above: Performed By: #### C MP #### [facility] [address] [place] [address] Dr. Ramses Dumas Calcium [Mass/Vol] 9.1 mg/dL Normal 8.5-10.1 [facility] Comment on above: Performed By: #### C MP #### [facility] [address] [place] [address] Dr. Ramses Dumas Chloride [Moles/Vol] 103 mmol/L Normal 98-107 [facility] Comment on above: Performed By: #### C MP #### [facility] [address] [address] [address] Ramses Dumas CO2 [Moles/Vol] 25.9 mmol/L Normal 21.0-32.0 [facility] Comment on above: Performed By: #### C MP #### [facility] [address] [address] [address] Ramses Dumas Creatinine [Mass/Vol] 0.77 mg/dL Normal 0.55-1.02 [facility] Comment on above: Performed By: #### C MP #### [facility] [address] [address] [address] Ramses Dumas EGFR-AF CROATIAN >60 Normal >=60 [facility] Comment on above: Performed By: #### C MP #### [facility] [address] [address] [address] Ramses Dumas EGFR-NON AF CROATIAN >60 Normal >=60 [facility] Comment on above: Performed By: #### C MP #### [facility] [address] [address] [address] Ramses Dumas Glucose [Mass/Vol] 124 mg/dL Critically high 74-[address] [facility] Comment on above: Performed By: #### C MP #### [facility] [address] [address] [address] Ramses Dumas Potassium [Moles/Vol] 3.6 mmol/L Normal 3.5-5.1 [facility] Comment on above: Performed By: #### C MP #### [facility] [address] [address] [address] Ramses Dumas Sodium [Moles/Vol] 137 mmol/L Normal 136-145 [facility] Comment on above: Performed By: #### C MP #### [facility] [address] [address] [address] Ramses Dumas Urea nitrogen [Mass/Vol] 12.0 mg/dL Normal 7.0-18.0 [facility] Comment on above: Performed By: #### C MP #### [facility] [address] [address] [address] Ramses Dumas Urea nitrogen/Creatinine [Mass ratio] 15.6 mg/mg Normal [facility] Comment on above: Performed By: #### C MP #### [facility] [address] [place] [address] Dr. Ramses Dumas URINE MICROSCOPIC ONLYon AMORPHOUS CRYSTALS RARE Normal [facility] Comment on above: Performed By: #### B [id number] #### [facility] [address] [place] [address] Dr. Ramses Dumas BACTERIA TRACE Abnormal NONE SEEN [facility] Comment on above: Performed By: #### B LDCX2 #### [facility] [address] [place] [address] Dr. Ramses Dumas Bacteria identified Cx Nom (U) INDICATED Normal [facility] Comment on above: Performed By: #### B LDCX2 #### [facility] [address] [place] [address] Dr. Ramses Dumas CA OX CRYSTALS RARE Normal [facility] Comment on above: Performed By: #### B [id number] #### [facility] [address] [place] [address] Dr. Ramses Dumas CAST NONE SEEN Normal NONE SEEN [facility] Comment on above: Performed By: #### B LDCX2 #### [facility] [address] [place] [address] Dr. Ramses Dumas Crystals LM Nom (Urine sed) SEEN Abnormal NONE SEEN [facility] Comment on above: Performed By: #### B LDCX2 #### [facility] [address] [address] [address] Ramses Dumas Epithelial cells LM Ql (Urine sed) FEW Abnormal NONE SEEN /RARE [facility] Comment on above: Performed By: #### B LDCX2 #### [facility] [address] [place] [address] Dr. Ramses Dumas MUCOUS TRACE Abnormal NONE SEEN [facility] Comment on above: Performed By: #### B LDCX2 #### [facility] [address] [address] [address] Ramses Dumas RBC 50-75 Abnormal 0-2 [facility] Comment on above: Performed By: #### B LDCX2 #### [facility] [address] [place] [address] Dr. Ramses Dumas WBC 20-50 Abnormal NONE SEEN [facility] Comment on above: Performed By: #### B LDCX2 #### [facility] [address] [address] [address] Ramses Dumas YEAST PRESENT Abnormal NONE SEEN [facility] Comment on above: Performed By: #### B LDCX2 #### [facility] [address] [place] [address] Dr. Ramses Dumas US KIDNEYSon 09-05-2022 US [...] GLEN PEREZ Date: 2022-09-05 11:00 Normal [facility] CT ABD/PELVIS WO CONon 08-29 CT [...] ERICKA IGLESIAS Date: 2022-08-29 01:10 Normal [facility] CULTURE URINEon 08-29-2022 CULTURE URINE Culture Observations : LIGHT GROWTH OF MIXED GENITAL DAIANA. NO POTENTIAL PATHOGENS SEEN. Normal [facility] Comment on above: Performed By: #### U RCX #### [facility] [address] [place] [address] Dr. Ramses Dumas CBC AUTO DIFFon 08-28-2022 BASO # 0.1 103/ul Normal 0.0-0.1 [facility] Comment on above: Performed By: #### U RCX #### [facility] [address] [address] [address] Ramses Dumas Basophils/100 WBC (Bld) 0.5 % Normal 0.2-2.0 [facility] Comment on above: Performed By: #### U RCX #### [facility] [address] [place] [address] Dr. Ramses Dumas EO # 0.3 103/ul Normal 0.0-0.7 [facility] Comment on above: Performed By: #### U RCX #### [facility] [address] [address] [address] Ramses Dumas Eosinophils/100 WBC (Bld) 2.3 % Normal 0.9-7.0 [facility] Comment on above: Performed By: #### U RCX #### [facility] [address] [place] [address] Dr. Ramses Dumas Erythrocyte distribution width (RBC) [Ratio] 13.7 % Normal 11.0-15.0 [facility] Comment on above: Performed By: #### U RCX #### [facility] [address] [place] [address] Dr. Ramses Dumas Hematocrit (Bld) [Volume fraction] 36.7 % Normal 36.0-48.0 [facility] Comment on above: Performed By: #### U RCX #### [facility] [address] [place] [address] Dr. Ramses Dumas Hemoglobin (Bld) [Mass/Vol] 12.3 g/dL Normal 12.0-16.0 [facility] Comment on above: Performed By: #### U RCX #### [facility] [address] [place] [address] Dr. Ramses Dumas IG # 0.16 10e3/ul Critically high 0.00-0.03 [facility] Comment on above: Performed By: #### U RCX #### [facility] [address] [place] [address] Dr. Ramses Dumas IG % 1.1 % Critically high 0.0-0.5 [place] Comment on above: Performed By: #### U RCX #### [facility] [address] [place] [address] Dr. Ramses Dumas LYMPH # 4.6 103/ul Critically high 1.2-3.8 [facility] Comment on above: Performed By: #### U RCX #### [facility] [address] [place] [address] Dr. Ramses Dumas Lymphocytes/100 WBC (Bld) 31.8 % Normal 20.5-60.0 [facility] Comment on above: Performed By: #### U RCX #### [facility] [address] [place] [address] Dr. Ramses Dumas MANUAL DIFF REQ NO Normal [place] Comment on above: Performed By: #### U RCX #### [facility] [address] [place] [address] Dr. Ramses Dumas MCH (RBC) [Entitic mass] 26.9 pg Normal 26.7-34.0 [facility] Comment on above: Performed By: #### U RCX #### [facility] [address] [place] [address] Dr. Ramses Dumas MCHC (RBC) [Mass/Vol] 33.5 g/dL Normal 29.9-35.2 [facility] Comment on above: Performed By: #### U RCX #### [facility] [address] [place] [address] Dr. Ramses Dumas MCV (RBC) [Entitic vol] 80.3 fL Critically low 81.0-99.0 [facility] Comment on above: Performed By: #### U RCX #### [facility] [address] [place] [address] Dr. Ramses Dumas MONO # 1.0 103/ul Critically high 0.3-0.8 [place] Comment on above: Performed By: #### U RCX #### [facility] [address] [place] [address] Dr. Ramses Dumas Monocytes/100 WBC (Bld) 7.0 % Normal 1.7-12.0 [facility] Comment on above: Performed By: #### U RCX #### [facility] [address] [place] [address] Dr. Ramses Dumas NEUT # 8.2 103/ul Critically high 1.4-6.5 [facility] Comment on above: Performed By: #### U RCX #### [facility] [address] [place] [address] Dr. Ramses Dumas Neutrophils/100 WBC (Bld) 57.3 % Normal 43.0-75.0 [facility] Comment on above: Performed By: #### U RCX #### [facility] [address] [place] [address] Dr. Ramses Dumas Platelet mean volume (Bld) [Entitic vol] 8.6 fL Critically low 9.5-13.5 [facility] Comment on above: Performed By: #### U RCX #### [facility] [address] [place] [address] Dr. Ramses Dumas PLT 395 103/ul Normal 150-450 [facility] Comment on above: Performed By: #### U RCX #### [facility] [address] [place] [address] Dr. Ramses Dumas RBC 4.57 106/ul Normal 4.20-5.40 [facility] Comment on above: Performed By: #### U RCX #### [facility] [address] [place] [address] Dr. Ramses Dumas WBC 14.3 103/ul Critically high 4.0-11.0 [facility] Comment on above: Performed By: #### U RCX #### [facility] [address] [place] [address] Dr. Ramses KUMAR URINE PROFILEon 2 Bilirubin Ql (U) Negative Normal NEGATIVE [facility] Comment on above: Performed By: #### U KJ 24 #### [facility] [address] [place] [address] Dr. Ramses Dumas Clarity (U) CLEAR Normal CLEAR [facility] Comment on above: Performed By: #### U KJ 24 #### [facility] [address] [place] [address] Dr. Ramses Dumas Color (U) LT. YELLOW Normal YELLOW [facility] Comment on above: Performed By: #### U KJ 24 #### [facility] [address] [place] [address] Dr. Ramses Dumas ERUAHWalter A micrscopic examination will be performed if indicated. Normal [facility] Comment on above: Performed By: #### U KJ 24 #### [facility] [address] [address] [address] Ramses Dumas Glucose Ql (U) Negative Normal NEGATIVE [facility] Comment on above: Performed By: #### U KJ 24 #### [facility] [address] [place] [address] Dr. Ramses Dumas Hemoglobin Ql (U) LARGE Abnormal NEGATIVE [facility] Comment on above: Performed By: #### U KJ 24 #### [facility] [address] [place] [address] Dr. Ramses Dumas Ketones Ql (U) Negative Normal NEGATIVE [facility] Comment on above: Performed By: #### U KJ 24 #### [facility] [address] [place] [address] Dr. Ramses Dumas LEUKOCYTES MODERATE Abnormal NEGATIVE [facility] Comment on above: Performed By: #### U KJ 24 #### [facility] [address] [place] [address] Dr. Ramses Dumas Nitrite Ql (U) Negative Normal NEGATIVE [facility] Comment on above: Performed By: #### U KJ 24 #### [facility] [address] [place] [address] Dr. Ramses Dumas pH (U) 6.5 [pH] Normal 5-9 [facility] Comment on above: Performed By: #### U KJ 24 #### [facility] [address] [place] [address] Dr. Ramses Dumas Protein (U) [Mass/Vol] 100 mg/dL Abnormal NEGATIVE/ TRACE [facility] Comment on above: Performed By: #### U KJ 24 #### [facility] [address] [place] [address] Dr. Ramses Dumas SPEC GRAVITY 1.020 Normal 1.005-<=1.02 5 [facility] Comment on above: Performed By: #### U KJ 24 #### [facility] [address] [place] [address] Dr. Ramses Dumas UR MICRO IND INDICATED Normal [facility] Comment on above: Performed By: #### U KJ 24 #### [facility] [address] [place] [address] Dr. Ramses Dumas Urobilinogen Qn (U) 0.2 {Lucero'U}/dL Normal 0.2 - 1. 0 [facility] Comment on above: Performed By: #### U KJ 24 #### [facility] [address] [place] [address] Dr. Ramses Dumas PROF 14(COMP METB)on 022 Albumin [Mass/Vol] 3.3 g/dL Critically low 3.4-5.0 [facility] Comment on above: Performed By: #### C MP #### [facility] [address] [place] [address] Dr. Ramses Dumas Albumin/Globulin [Mass ratio] 0.8 {ratio} Normal [facility] Comment on above: Performed By: #### C MP #### [facility] [address] [place] [address] Dr. Ramses Dumas ALP [Catalytic activity/Vol] 108 U/L Normal 46-116 [facility] Comment on above: Performed By: #### C MP #### [facility] [address] [place] [address] Dr. Ramses Dumas ALT [Catalytic activity/Vol] 103 U/L Critically high 14-59 [facility] Comment on above: Performed By: #### C MP #### [facility] [address] [place] [address] Dr. Ramses Dumas Anion gap [Moles/Vol] 6.6 mmol/L Normal [facility] Comment on above: Performed By: #### C MP #### [facility] [address] [place] [address] Dr. Ramses Dumas AST [Catalytic activity/Vol] 21 U/L Normal 15-37 [facility] Comment on above: Performed By: #### C MP #### [facility] [address] [place] [address] Dr. Ramses Dumas Bilirubin [Mass/Vol] 0.2 mg/dL Normal 0.2-1.0 [facility] Comment on above: Performed By: #### C MP #### [facility] [address] [place] [address] Dr. Ramses Dumas Calcium [Mass/Vol] 9.2 mg/dL Normal 8.5-10.1 [facility] Comment on above: Performed By: #### C MP #### [facility] [address] [address] [address] Ramses Dumas Chloride [Moles/Vol] 102 mmol/L Normal 98-107 [facility] Comment on above: Performed By: #### C MP #### [facility] [address] [address] [address] Ramses Dumas CO2 [Moles/Vol] 28.8 mmol/L Normal 21.0-32.0 [facility] Comment on above: Performed By: #### C MP #### [facility] [address] [place] [address] Dr. Ramses Dumas Creatinine [Mass/Vol] 0.92 mg/dL Normal 0.55-1.02 [facility] Comment on above: Performed By: #### C MP #### [facility] [address] [place] [address] Dr. Ramses Dumas EGFR-AF CROATIAN >60 Normal >=60 [facility] Comment on above: Performed By: #### C MP #### [facility] [address] [place] [address] Dr. Ramses Dumas EGFR-NON AF CROATIAN >60 Normal >=60 [facility] Comment on above: Performed By: #### C MP #### [facility] [address] [place] [address] Dr. Ramses Dumas Globulin (S) [Mass/Vol] 4.1 g/dL Normal [facility] Comment on above: Performed By: #### C MP #### [facility] [address] [address] [address] Ramses Dumas Glucose [Mass/Vol] 114 mg/dL Critically high 74-[address] [facility] Comment on above: Performed By: #### C MP #### [facility] [address] [place] [address] Dr. Ramses Dumas Potassium [Moles/Vol] 3.4 mmol/L Critically low 3.5-5.1 [facility] Comment on above: Performed By: #### C MP #### [facility] [address] [address] [address] Ramses Dumas Protein [Mass/Vol] 7.4 g/dL Normal 6.4-8.2 [facility] Comment on above: Performed By: #### C MP #### [facility] [address] [address] [address] Ramses Dumas Sodium [Moles/Vol] 134 mmol/L Critically low 136-145 [facility] Comment on above: Performed By: #### C MP #### [facility] [address] [address] [address] Ramses Dumas Urea nitrogen [Mass/Vol] 11.0 mg/dL Normal 7.0-18.0 [facility] Comment on above: Performed By: #### C MP #### [facility] [address] [place] [address] Dr. Ramses Dumas Urea nitrogen/Creatinine [Mass ratio] 12.0 mg/mg Normal [facility] Comment on above: Performed By: #### C MP #### [facility] [address] [place] [address] Dr. Ramses Dumas URINE MICROSCOPIC ONLYon BACTERIA MODERATE Abnormal NONE SEEN [facility] Comment on above: Performed By: #### U KJ 24 #### [facility] [address] [place] [address] Dr. Ramses Dumas Bacteria identified Cx Nom (U) INDICATED Normal [facility] Comment on above: Performed By: #### U KJ 24 #### [facility] [address] [place] [address] Dr. Ramses Dumas CAST NONE SEEN Normal NONE SEEN [facility] Comment on above: Performed By: #### U KJ 24 #### [facility] [address] [place] [address] Dr. Ramses Dumas Crystals LM Nom (Urine sed) NONE SEEN Normal NONE SEEN [facility] Comment on above: Performed By: #### U KJ 24 #### [facility] [address] [place] [address] Dr. Ramses Dumas Epithelial cells LM Ql (Urine sed) RARE Normal NONE SEEN /RARE [facility] Comment on above: Performed By: #### U KJ 24 #### [facility] [address] [place] [address] Dr. Ramses Dumas MUCOUS NONE SEEN Normal NONE SEEN [facility] Comment on above: Performed By: #### U KJ 24 #### [facility] [address] [place] [address] Dr. Ramses Dumas RBC 20-50 Abnormal 0-2 [facility] Comment on above: Performed By: #### U KJ 24 #### [facility] [address] [place] [address] Dr. Ramses Dumas WBC 5-10 Abnormal NONE SEEN [facility] Comment on above: Performed By: #### U KJ 24 #### [facility] [address] [place] [address] Dr. Ramses Dumas CULTURE BLOODon 08-25-2022 Microscopic [...] F Tetracycline >=16 R F Normal [facility] Comment on above: Performed By: #### B LDCX2 #### [facility] [address] [place] [address] Dr. Ramses Dumas Microscopic examination of blood, [...] F Tetracycline >=16 R F Normal [facility] Comment on above: Performed By: #### C BC #### [facility] [address] [place] [address] Dr. Ramses Dumas CBC AUTO DIFFon 08-24-2022 BASO # 0.0 103/ul Normal 0.0-0.1 [facility] Comment on above: Performed By: #### C BC #### [facility] [address] [place] [address] Dr. Ramses Dumas Basophils/100 WBC (Bld) 0.1 % Critically low 0.2-2.0 [facility] Comment on above: Performed By: #### C BC #### [facility] [address] [place] [address] Dr. Ramses Dumas EO # 0.0 103/ul Normal 0.0-0.7 [facility] Comment on above: Performed By: #### C BC #### [facility] [address] [place] [address] Dr. Ramses Dumas Eosinophils/100 WBC (Bld) 0.0 % Critically low 0.9-7.0 [facility] Comment on above: Performed By: #### C BC #### [facility] [address] [place] [address] Dr. Ramses Dumas Erythrocyte distribution width (RBC) [Ratio] 13.5 % Normal 11.0-15.0 [facility] Comment on above: Performed By: #### C BC #### [facility] [address] [place] [address] Dr. Ramses Dumas Hematocrit (Bld) [Volume fraction] 33.0 % Critically low 36.0-48.0 [facility] Comment on above: Performed By: #### C BC #### [facility] [address] [address] [address] Ramses Dumas Hemoglobin (Bld) [Mass/Vol] 10.7 g/dL Critically low 12.0-16.0 [facility] Comment on above: Performed By: #### C BC #### [facility] [address] [address] [address] Ramses Dumas IG # 0.04 10e3/ul Critically high 0.00-0.03 [facility] Comment on above: Performed By: #### C BC #### [facility] [address] [place] [address] Dr. Ramses Dumas IG % 0.4 % Normal 0.0-0.5 [facility] Comment on above: Performed By: #### C BC #### [facility] [address] [place] [address] Dr. Ramses Dumas LYMPH # 0.8 103/ul Critically low 1.2-3.8 [facility] Comment on above: Performed By: #### C BC #### [facility] [address] [place] [address] Dr. Ramses Dumas Lymphocytes/100 WBC (Bld) 7.9 % Critically low 20.5-60.0 [facility] Comment on above: Performed By: #### C BC #### [facility] [address] [place] [address] Dr. Ramses Dumas MANUAL DIFF REQ NO Normal [place] Comment on above: Performed By: #### C BC #### [facility] [address] [place] [address] Dr. Ramses Dumas MCH (RBC) [Entitic mass] 26.5 pg Critically low 26.7-34.0 [facility] Comment on above: Performed By: #### C BC #### [facility] [address] [place] [address] Dr. Ramses Dumas MCHC (RBC) [Mass/Vol] 32.4 g/dL Normal 29.9-35.2 [facility] Comment on above: Performed By: #### C BC #### [facility] [address] [place] [address] Dr. Ramses Dumas MCV (RBC) [Entitic vol] 81.7 fL Normal 81.0-99.0 [facility] Comment on above: Performed By: #### C BC #### [facility] [address] [place] [address] Dr. Ramses Dumas MONO # 0.6 103/ul Normal 0.3-0.8 [facility] Comment on above: Performed By: #### C BC #### [facility] [address] [place] [address] Dr. Ramses Dumas Monocytes/100 WBC (Bld) 6.3 % Normal 1.7-12.0 [facility] Comment on above: Performed By: #### C BC #### [facility] [address] [place] [address] Dr. Ramses Dumas NEUT # 8.6 103/ul Critically high 1.4-6.5 [facility] Comment on above: Performed By: #### C BC #### [facility] [address] [place] [address] Dr. Ramses Dumas Neutrophils/100 WBC (Bld) 85.3 % Critically high 43.0-75.0 [facility] Comment on above: Performed By: #### C BC #### [facility] [address] [place] [address] Dr. Ramses Dumas Platelet mean volume (Bld) [Entitic vol] 9.1 fL Critically low 9.5-13.5 [facility] Comment on above: Performed By: #### C BC #### [facility] [address] [place] [address] Dr. Ramses Dumas PLT 248 103/ul Normal 150-450 [facility] Comment on above: Performed By: #### C BC #### [facility] [address] [place] [address] Dr. Ramses Dumas RBC 4.04 106/ul Critically low 4.20-5.40 [facility] Comment on above: Performed By: #### C BC #### [facility] [address] [place] [address] Dr. Ramses Dumas WBC 10.1 103/ul Normal 4.0-11.0 [facility] Comment on above: Performed By: #### C BC #### [facility] [address] [place] [address] Dr. Ramses Dumas CULTURE URINEon 08-24-2022 CULTURE [...] above: Performed By: #### U RCX #### [facility] [address] [place] [address] Dr. Ramses Dumas PROF 14(COMP METB)on 022 Albumin [Mass/Vol] 2.4 g/dL Critically low 3.4-5.0 [facility] Comment on above: Performed By: #### C VDTBH #### [facility] [address] [place] [address] Dr. Ramses Dumas Albumin/Globulin [Mass ratio] 0.7 {ratio} Normal [facility] Comment on above: Performed By: #### C VDTBH #### [facility] [address] [place] [address] Dr. Ramses Dumas ALP [Catalytic activity/Vol] 95 U/L Normal 46-116 [facility] Comment on above: Performed By: #### C VDTBH #### [facility] [address] [place] [address] Dr. Ramses Dumas ALT [Catalytic activity/Vol] 327 U/L Critically high 14-59 [facility] Comment on above: Performed By: #### C VDTBH #### [facility] [address] [place] [address] Dr. Ramses Dumas Anion gap [Moles/Vol] 8.7 mmol/L Normal [facility] Comment on above: Performed By: #### C VDTBH #### [facility] [address] [place] [address] Dr. Ramses Dumas AST [Catalytic activity/Vol] 165 U/L Critically high 15-37 [facility] Comment on above: Performed By: #### C VDTBH #### [facility] [address] [place] [address] Dr. Ramses Dumas Bilirubin [Mass/Vol] 0.4 mg/dL Normal 0.2-1.0 [facility] Comment on above: Performed By: #### C VDTBH #### [facility] [address] [place] [address] Dr. Ramses Dumas Calcium [Mass/Vol] 8.0 mg/dL Critically low 8.5-10.1 [facility] Comment on above: Performed By: #### C VDTBH #### [facility] [address] [place] [address] Dr. Ramses Dumas Chloride [Moles/Vol] 108 mmol/L Critically high 98-107 [facility] Comment on above: Performed By: #### C VDTBH #### [facility] [address] [place] [address] Dr. Ramses Dumas CO2 [Moles/Vol] 25.3 mmol/L Normal 21.0-32.0 [facility] Comment on above: Performed By: #### C VDTBH #### [facility] [address] [place] [address] Dr. Ramses Dumas Creatinine [Mass/Vol] 0.70 mg/dL Normal 0.55-1.02 [facility] Comment on above: Performed By: #### C VDTBH #### [facility] [address] [place] [address] Dr. Ramses Dumas EGFR-AF CROATIAN >60 Normal >=60 [facility] Comment on above: Performed By: #### C VDTBH #### [facility] [address] [place] [address] Dr. Ramses Dumas EGFR-NON AF CROATIAN >60 Normal >=60 [facility] Comment on above: Performed By: #### C VDTBH #### [facility] [address] [place] [address] Dr. Ramses Dumas Globulin (S) [Mass/Vol] 3.6 g/dL Normal [facility] Comment on above: Performed By: #### C VDTBH #### [facility] [address] [place] [address] Dr. Ramses Dumas Glucose [Mass/Vol] 160 mg/dL Critically high 74-106 [facility] Comment on above: Performed By: #### C VDTBH #### [facility] [address] [place] [address] Dr. Ramses Dumas Potassium [Moles/Vol] 4.0 mmol/L Normal 3.5-5.1 [facility] Comment on above: Performed By: #### C VDTBH #### [facility] [address] [place] [address] Dr. Ramses Dumas Protein [Mass/Vol] 6.0 g/dL Critically low 6.4-8.2 [facility] Comment on above: Performed By: #### C VDTBH #### [facility] [address] [place] [address] Dr. Ramses Dumas Sodium [Moles/Vol] 138 mmol/L Normal 136-145 [facility] Comment on above: Performed By: #### C VDTBH #### [facility] [address] [place] [address] Dr. Ramses Dumas Urea nitrogen [Mass/Vol] 6.0 mg/dL Critically low 7.0-18.0 [facility] Comment on above: Performed By: #### C VDTBH #### [facility] [address] [place] [address] Dr. Ramses Dumas Urea nitrogen/Creatinine [Mass ratio] 8.6 mg/mg Normal [facility] Comment on above: Performed By: #### C VDTBH #### [facility] [address] [place] [address] Dr. Ramses Dumas CBC AUTO DIFFon 08-23-2022 BASO # 0.0 103/ul Normal 0.0-0.1 [facility] Comment on above: Performed By: #### U RCX #### [facility] [address] [place] [address] Dr. Ramses Dumas Basophils/100 WBC (Bld) 0.2 % Normal 0.2-2.0 [facility] Comment on above: Performed By: #### U RCX #### [facility] [address] [place] [address] Dr. Ramses Dumas EO # 0.0 103/ul Normal 0.0-0.7 [facility] Comment on above: Performed By: #### U RCX #### [facility] [address] [place] [address] Dr. Ramses Dumas Eosinophils/100 WBC (Bld) 0.1 % Critically low 0.9-7.0 [facility] Comment on above: Performed By: #### U RCX #### [facility] [address] [place] [address] Dr. Ramses Dumas Erythrocyte distribution width (RBC) [Ratio] 13.4 % Normal 11.0-15.0 [facility] Comment on above: Performed By: #### U RCX #### [facility] [address] [place] [address] Dr. Ramses Dumas Hematocrit (Bld) [Volume fraction] 34.1 % Critically low 36.0-48.0 [facility] Comment on above: Performed By: #### U RCX #### [facility] [address] [place] [address] Dr. Ramses Dumas Hemoglobin (Bld) [Mass/Vol] 10.9 g/dL Critically low 12.0-16.0 [facility] Comment on above: Performed By: #### U RCX #### [facility] [address] [place] [address] Dr. Ramses Dumas IG # 0.02 10e3/ul Normal 0.00-0.03 [facility] Comment on above: Performed By: #### U RCX #### [facility] [address] [address] [address] Ramses Dumas IG % 0.2 % Normal 0.0-0.5 [facility] Comment on above: Performed By: #### U RCX #### [facility] [address] [address] [address] Ramses Dumas LYMPH # 0.7 103/ul Critically low 1.2-3.8 [facility] Comment on above: Performed By: #### U RCX #### [facility] [address] [address] [address] Ramses Dumas Lymphocytes/100 WBC (Bld) 6.9 % Critically low 20.5-60.0 [facility] Comment on above: Performed By: #### U RCX #### [facility] [address] [address] [address] Ramses Dumas MANUAL DIFF REQ NO Normal [place] Comment on above: Performed By: #### U RCX #### [facility] [address] [address] [address] Ramses Dumas MCH (RBC) [Entitic mass] 26.1 pg Critically low 26.7-34.0 [facility] Comment on above: Performed By: #### U RCX #### [facility] [address] [address] [address] Ramses Dumas MCHC (RBC) [Mass/Vol] 32.0 g/dL Normal 29.9-35.2 [facility] Comment on above: Performed By: #### U RCX #### [facility] [address] [address] [address] Ramses Dumas MCV (RBC) [Entitic vol] 81.8 fL Normal 81.0-99.0 [facility] Comment on above: Performed By: #### U RCX #### [facility] [address] [address] [address] Ramses Dumas MONO # 0.6 103/ul Normal 0.3-0.8 [facility] Comment on above: Performed By: #### U RCX #### [facility] [address] [address] [address] Ramses Dumas Monocytes/100 WBC (Bld) 5.9 % Normal 1.7-12.0 [facility] Comment on above: Performed By: #### U RCX #### [facility] [address] [address] [address] Ramses Dumas NEUT # 8.2 103/ul Critically high 1.4-6.5 [place] Comment on above: Performed By: #### U RCX #### [facility] [address] [place] [address] Dr. Ramses Dumas Neutrophils/100 WBC (Bld) 86.7 % Critically high 43.0-75.0 [facility] Comment on above: Performed By: #### U RCX #### [facility] [address] [place] [address] Dr. Ramses Dumas Platelet mean volume (Bld) [Entitic vol] 9.4 fL Critically low 9.5-13.5 [facility] Comment on above: Performed By: #### U RCX #### [facility] [address] [place] [address] Dr. Ramses Dumas PLT 235 103/ul Normal 150-450 [facility] Comment on above: Performed By: #### U RCX #### [facility] [address] [place] [address] Dr. Ramses Dumas RBC 4.17 106/ul Critically low 4.20-5.40 [facility] Comment on above: Performed By: #### U RCX #### [facility] [address] [place] [address] Dr. Ramses Dumas WBC 9.5 103/ul Normal 4.0-11.0 [facility] Comment on above: Performed By: #### U RCX #### [facility] [address] [place] [address] Dr. Ramses Dumas PROF 14(COMP METB)on 022 Albumin [Mass/Vol] 2.6 g/dL Critically low 3.4-5.0 [facility] Comment on above: Performed By: #### U KJ 24 #### [facility] [address] [address] [address] Ramses Dumas Albumin/Globulin [Mass ratio] 0.8 {ratio} Normal [facility] Comment on above: Performed By: #### U KJ 24 #### [facility] [address] [address] [address] Ramses Dumas ALP [Catalytic activity/Vol] 82 U/L Normal 46-116 [facility] Comment on above: Performed By: #### U KJ 24 #### [facility] [address] [address] [address] Ramses Dumas ALT [Catalytic activity/Vol] 257 U/L Critically high 14-59 [facility] Comment on above: Performed By: #### U KJ 24 #### [facility] [address] [place] [address] Dr. Ramses Dumas Anion gap [Moles/Vol] 10.3 mmol/L Normal [facility] Comment on above: Performed By: #### U KJ 24 #### [facility] [address] [place] [address] Dr. Ramses Dumas AST [Catalytic activity/Vol] 196 U/L Critically high 15-37 [facility] Comment on above: Performed By: #### U KJ 24 #### [facility] [address] [place] [address] Dr. Ramses Dumas Bilirubin [Mass/Vol] 0.5 mg/dL Normal 0.2-1.0 [facility] Comment on above: Performed By: #### U KJ 24 #### [facility] [address] [place] [address] Dr. Ramses Dumas Calcium [Mass/Vol] 7.8 mg/dL Critically low 8.5-10.1 [facility] Comment on above: Performed By: #### U KJ 24 #### [facility] [address] [place] [address] Dr. Ramses Dumas Chloride [Moles/Vol] 104 mmol/L Normal 98-107 [facility] Comment on above: Performed By: #### U KJ 24 #### [facility] [address] [address] [address] Ramses Dumas CO2 [Moles/Vol] 24.4 mmol/L Normal 21.0-32.0 [facility] Comment on above: Performed By: #### U KJ 24 #### [facility] [address] [address] [address] Ramses Dumas Creatinine [Mass/Vol] 1.09 mg/dL Critically high 0.55-1.02 [facility] Comment on above: Performed By: #### U KJ 24 #### [facility] [address] [address] [address] Ramses Dumas EGFR-AF CROATIAN >60 Normal >=60 [facility] Comment on above: Performed By: #### U KJ 24 #### [facility] [address] [address] [address] Ramses Dumas EGFR-NON AF CROATIAN 59 mL/min/1.73m2 Critically low >=60 [facility] Comment on above: Performed By: #### U KJ 24 #### [facility] [address] [address] [address] Ramses Dumas Globulin (S) [Mass/Vol] 3.3 g/dL Normal [facility] Comment on above: Performed By: #### U KJ 24 #### [facility] [address] [address] [address] Ramses Dumas Glucose [Mass/Vol] 143 mg/dL Critically high 74-106 T [facility] Comment on above: Performed By: #### U KJ 24 #### [facility] [address] [address] [address] Ramses Dumas Potassium [Moles/Vol] 3.7 mmol/L Normal 3.5-5.1 [facility] Comment on above: Performed By: #### U KJ 24 #### [facility] [address] [address] [address] Ramses Dumas Protein [Mass/Vol] 5.9 g/dL Critically low 6.4-8.2 [facility] Comment on above: Performed By: #### U KJ 24 #### [facility] [address] [place] [address] Dr. Ramses Dumas Sodium [Moles/Vol] 135 mmol/L Critically low 136-145 Th [facility] Comment on above: Performed By: #### U KJ 24 #### [facility] [address] [place] [address] Dr. Ramses Dumas Urea nitrogen [Mass/Vol] 10.0 mg/dL Normal 7.0-18.0 [facility] Comment on above: Performed By: #### U KJ 24 #### [facility] [address] [place] [address] Dr. Ramses Dumas Urea nitrogen/Creatinine [Mass ratio] 9.2 mg/mg Normal [facility] Comment on above: Performed By: #### U KJ 24 #### [facility] [address] [place] [address] Dr. Ramses Dumas BLOOD CULTURE ID PANELon A. baumannii Not detected Normal NOT DETECTED [facility] Comment on above: Performed By: #### C VDTBH #### [facility] [address] [place] [address] Dr. Ramses Dumas Bacteriodes fragilis Not detected Normal NOT DETECTED [facility] Comment on above: Performed By: #### C VDTBH #### [facility] [address] [place] [address] Dr. Ramses Dumas BCID CONTROLS PASSED Normal [facility] Comment on above: Performed By: #### C VDTBH #### [facility] [address] [place] [address] Dr. Ramses Dumas BCIDBTHD BLOOD CULTURE BOTTLE INFORMATION Normal [facility] Comment on above: Performed By: #### C VDTBH #### [facility] [address] [place] [address] Dr. Ramses Dumas BCIDHD1 ANTIMICROBIAL RESISTANCE GENES Normal [facility] Comment on above: Performed By: #### C VDTBH #### [facility] [address] [place] [address] Dr. Ramses Dumas BCIDHD2 SEE BELOW [facility] Comment on above: Result Comment: Note : Antimicrobial resitance can occur via multiple mechanisms. A Not Detected result for the [employer] antomicrobial resistance gene assays does not indicate antimicrobial susceptibility. Subculturing is required for species identification and susceptibility testing of isolates. Performed By: #### C VDTBH #### [facility] [address] [place] [address] Dr. Ramses Dumas BCIDHD3 Positive Normal [facility] Comment on above: Performed By: #### C VDTBH #### [facility] [address] [place] [address] Dr. Ramses Dumas BCIDHD4 Negative Normal [facility] Comment on above: Performed By: #### C VDTBH #### [facility] [address] [place] [address] Dr. Ramses Dumas BCIDHD5 YEAST Normal [facility] Comment on above: Performed By: #### C VDTBH #### [facility] [address] [place] [address] Dr. Ramses Dumas Bottle Set: Set 1 Normal [facility] Comment on above: Performed By: #### C VDTBH #### [facility] [address] [place] [address] Dr. Ramses Dumas Bottle: Pediatric Normal [facility] Comment on above: Performed By: #### C VDTBH #### [facility] [address] [place] [address] Dr. Ramses Dumas C. neoformans/gattii Not detected Normal NOT DETECTED [facility] Comment on above: Performed By: #### C VDTBH #### [facility] [address] [place] [address] Dr. Ramses Dumas Kim albicans Not detected Normal NOT DETECTED [facility] Comment on above: Performed By: #### C VDTBH #### [facility] [address] [place] [address] Dr. Ramses Dumas Kim auris Not detected Normal NOT DETECTED [facility] Comment on above: Performed By: #### C VDTBH #### [facility] [address] [place] [address] Dr. Ramses Dumas Kim glabrata Not detected Normal NOT DETECTED [facility] Comment on above: Performed By: #### C VDTBH #### [facility] [address] [address] [address] Ramses Dumas Kim Krusei Not detected Normal NOT DETECTED [facility] Comment on above: Performed By: #### C VDTBH #### [facility] [address] [place] [address] Dr. Ramses Dumas Kim Parapsilosis Not detected Normal NOT DETECTED [facility] Comment on above: Performed By: #### C VDTBH #### [facility] [address] [address] [address] Ramses Dumas Kim Tropicalis Not detected Normal NOT DETECTED [facility] Comment on above: Performed By: #### C VDTBH #### [facility] [address] [place] [address] Dr. Ramses Dumas CTX-M Resistant Gene Not Applicable Normal NOT DETECTE D [facility] Comment on above: Performed By: #### C VDTBH #### [facility] [address] [place] [address] Dr. Ramses Dumas E. Cloacae complex Not detected Normal NOT DETECTED [facility] Comment on above: Performed By: #### C VDTBH #### [facility] [address] [place] [address] Dr. Ramses Dumas E. faecalis Not detected Normal NOT DETECTED [facility] Comment on above: Performed By: #### C VDTBH #### [facility] [address] [place] [address] Dr. Ramses Dumas E. faecium Not detected Normal NOT DETECTED [facility] Comment on above: Performed By: #### C VDTBH #### [facility] [address] [place] [address] Dr. Ramses Dumas Enterobacteriaceae Not detected Normal NOT DETECTED [facility] Comment on above: Performed By: #### C VDTBH #### [facility] [address] [place] [address] Dr. Ramses Dumas Escherichia coli Not detected Normal NOT DETECTED [facility] Comment on above: Performed By: #### C VDTBH #### [facility] [address] [place] [address] Dr. Ramses Dumas H. influenzae Not detected Normal NOT DETECTED [facility] Comment on above: Performed By: #### C VDTBH #### [facility] [address] [place] [address] Dr. Ramses Dumas IMP Resistant Gene Not Applicable Normal NOT DETECTED [facility] Comment on above: Performed By: #### C VDTBH #### [facility] [address] [place] [address] Dr. Ramses Dumas K. oxytoca Not detected Normal NOT DETECTED [facility] Comment on above: Performed By: #### C VDTBH #### [facility] [address] [place] [address] Dr. Ramses Dumas K. pneumoniae Not detected Normal NOT DETECTED [facility] Comment on above: Performed By: #### C VDTBH #### [facility] [address] [place] [address] Dr. Ramses Dumas Klebsiella aerogenes Not detected Normal NOT DETECTED [facility] Comment on above: Performed By: #### C VDTBH #### [facility] [address] [place] [address] Dr. Ramses Dumas KPC Resistant Gene Not detected Normal NOT DETECTED [facility] Comment on above: Performed By: #### C VDTBH #### [facility] [address] [place] [address] Dr. Ramses Dumas List. monocytogenes Not detected Normal NOT DETECTED [facility] Comment on above: Performed By: #### C VDTBH #### [facility] [address] [place] [address] Dr. Ramses Dumas Mcr-1 Resistant Gene Not Applicable Normal NOT DETECTE D [facility] Comment on above: Performed By: #### C VDTBH #### [facility] [address] [place] [address] Dr. Ramses Dumas mecA/C Not Applicable Normal NOT DETECTED [facility] Comment on above: Performed By: #### C VDTBH #### [facility] [address] [place] [address] Dr. Ramses Dumas mecA/C MREJ Not Applicable Normal NOT DETECTED [facility] Comment on above: Performed By: #### C VDTBH #### [facility] [address] [place] [address] Dr. Ramses Dumas N. meningitidis Not detected Normal NOT DETECTED [facility] Comment on above: Performed By: #### C VDTBH #### [facility] [address] [place] [address] Dr. Ramses Dumas NDM Resistant Gene Not Applicable Normal NOT DETECTED [facility] Comment on above: Performed By: #### C VDTBH #### [facility] [address] [place] [address] Dr. Ramses Dumas Oxa-48-like Not Applicable Normal NOT DETECTED [facility] Comment on above: Performed By: #### C VDTBH #### [facility] [address] [place] [address] Dr. Ramses Dumas Proteus Not detected Normal NOT DETECTED [facility] Comment on above: Performed By: #### C VDTBH #### [facility] [address] [place] [address] Dr. Ramses Dumas Pseud. aeruginosa Not detected Normal NOT DETECTED [facility] Comment on above: Performed By: #### C VDTBH #### [facility] [address] [place] [address] Dr. Ramses Dumas S. maltophilia Not detected Normal NOT DETECTED [facility] Comment on above: Performed By: #### C VDTBH #### [facility] [address] [place] [address] Dr. Ramses Dumas Salmonella Not detected Normal NOT DETECTED [facility] Comment on above: Performed By: #### C VDTBH #### [facility] [address] [place] [address] Dr. Ramses Dumas Seratia marcescens Not detected Normal NOT DETECTED [facility] Comment on above: Performed By: #### C VDTBH #### [facility] [address] [place] [address] Dr. Ramses Dumas Site: unknown/not given Normal [facility] Comment on above: Performed By: #### C VDTBH #### [facility] [address] [place] [address] Dr. Ramses Dumas Staph. aureus Not detected Normal NOT DETECTED [facility] Comment on above: Performed By: #### C VDTBH #### [facility] [address] [place] [address] Dr. Ramses Dumas Staph. epidermidis Not detected Normal NOT DETECTED [facility] Comment on above: Performed By: #### C VDTBH #### [facility] [address] [place] [address] Dr. Ramses Dumas Stapphillip. lugdunensis Not detected Normal NOT DETECTED [facility] Comment on above: Performed By: #### C VDTBH #### [facility] [address] [place] [address] Dr. Ramses Dumas Staphylococcus Not detected Normal NOT DETECTED [facility] Comment on above: Performed By: #### C VDTBH #### [facility] [address] [place] [address] Dr. Ramses Dumas Strep. agalactiae Detected Critically abnormal NOT DETECTED [facility] Comment on above: Performed By: #### C VDTBH #### [facility] [address] [place] [address] Dr. Ramses Dumas Strep. pneumoniae Not detected Normal NOT DETECTED [facility] Comment on above: Performed By: #### C VDTBH #### [facility] [address] [place] [address] Dr. Ramses Dumas Strep. pyogenes Not detected Normal NOT DETECTED [facility] Comment on above: Performed By: #### C VDTBH #### [facility] [address] [place] [address] Dr. Ramses Dumas Streptococcus Detected Critically abnormal NOT DETECTED [facility] Comment on above: Performed By: #### C VDTBH #### [facility] [address] [place] [address] Dr. Ramses Dumas Efrain/B Resist. Gene Not detected Normal NOT DETECTED [facility] Comment on above: Performed By: #### C VDTBH #### [facility] [address] [place] [address] Dr. Ramses Dumas VIM Resistant Gene Not Applicable Normal NOT DETECTED [facility] Comment on above: Performed By: #### C VDTBH #### [facility] [address] [place] [address] Dr. Ramses Dumas CBC AUTO DIFFon 08-22-2022 BASO # 0.1 103/ul Normal 0.0-0.1 [facility] Comment on above: Performed By: #### U KJ 24 #### [facility] [address] [place] [address] Dr. Ramses Dumas Basophils/100 WBC (Bld) 0.7 % Normal 0.2-2.0 [facility] Comment on above: Performed By: #### U KJ 24 #### [facility] [address] [place] [address] Dr. Ramses Dumas EO # 0.1 103/ul Normal 0.0-0.7 [facility] Comment on above: Performed By: #### U KJ 24 #### [facility] [address] [place] [address] Dr. Ramses Dumas Eosinophils/100 WBC (Bld) 1.7 % Normal 0.9-7.0 [facility] Comment on above: Performed By: #### U KJ 24 #### [facility] [address] [place] [address] Dr. Ramses Dumas Erythrocyte distribution width (RBC) [Ratio] 13.2 % Normal 11.0-15.0 [facility] Comment on above: Performed By: #### U KJ 24 #### [facility] [address] [place] [address] Dr. Ramses Dumas Hematocrit (Bld) [Volume fraction] 39.8 % Normal 36.0-48.0 [facility] Comment on above: Performed By: #### U KJ 24 #### [facility] [address] [place] [address] Dr. Ramses Dumas Hemoglobin (Bld) [Mass/Vol] 12.9 g/dL Normal 12.0-16.0 [facility] Comment on above: Performed By: #### U KJ 24 #### [facility] [address] [place] [address] Dr. Ramses Dumas IG # 0.02 10e3/ul Normal 0.00-0.03 [facility] Comment on above: Performed By: #### U KJ 24 #### [facility] [address] [place] [address] Dr. Ramses Dumas IG % 0.2 % Normal 0.0-0.5 [facility] Comment on above: Performed By: #### U KJ 24 #### [facility] [address] [place] [address] Dr. Ramses Dumas LYMPH # 3.2 103/ul Normal 1.2-3.8 [facility] Comment on above: Performed By: #### U KJ 24 #### [facility] [address] [place] [address] Dr. Ramses Dumas Lymphocytes/100 WBC (Bld) 40.0 % Normal 20.5-60.0 [facility] Comment on above: Performed By: #### U KJ 24 #### [facility] [address] [place] [address] Dr. Ramses Dumas MANUAL DIFF REQ NO Normal [place] Comment on above: Performed By: #### U KJ 24 #### [facility] [address] [place] [address] Dr. Ramses Dumas MCH (RBC) [Entitic mass] 26.6 pg Critically low 26.7-34.0 [facility] Comment on above: Performed By: #### U KJ 24 #### [facility] [address] [place] [address] Dr. Ramses Dumas MCHC (RBC) [Mass/Vol] 32.4 g/dL Normal 29.9-35.2 [facility] Comment on above: Performed By: #### U KJ 24 #### [facility] [address] [place] [address] Dr. Ramses Dumas MCV (RBC) [Entitic vol] 82.1 fL Normal 81.0-99.0 [facility] Comment on above: Performed By: #### U KJ 24 #### [facility] [address] [place] [address] Dr. Ramses Dumas MONO # 0.6 103/ul Normal 0.3-0.8 [facility] Comment on above: Performed By: #### U KJ 24 #### [facility] [address] [place] [address] Dr. Ramses Dumas Monocytes/100 WBC (Bld) 7.5 % Normal 1.7-12.0 [facility] Comment on above: Performed By: #### U KJ 24 #### [facility] [address] [place] [address] Dr. Ramses Dumas NEUT # 4.0 103/ul Normal 1.4-6.5 [facility] Comment on above: Performed By: #### U KJ 24 #### [facility] [address] [place] [address] Dr. Ramses Dumas Neutrophils/100 WBC (Bld) 49.9 % Normal 43.0-75.0 [facility] Comment on above: Performed By: #### U KJ 24 #### [facility] [address] [place] [address] Dr. Ramses Dumas Platelet mean volume (Bld) [Entitic vol] 9.3 fL Critically low 9.5-13.5 [facility] Comment on above: Performed By: #### U KJ 24 #### [facility] [address] [place] [address] Dr. Ramses Dumas PLT 354 103/ul Normal 150-450 [facility] Comment on above: Performed By: #### U KJ 24 #### [facility] [address] [place] [address] Dr. Ramses Dumas RBC 4.85 106/ul Normal 4.20-5.40 [facility] Comment on above: Performed By: #### U KJ 24 #### [facility] [address] [place] [address] Dr. Ramses Dumas WBC 8.1 103/ul Normal 4.0-11.0 [facility] Comment on above: Performed By: #### U KJ 24 #### [facility] [address] [address] [address] ABD/PELVIS WO CONon [...] KESHIA IRIZARRY Date: 2022-08-22 07:04 Normal [facility] Covid-19 PCR (CVDTB)on SARS-CoV-2 (COVID-19) RNA FRANCESCA+probe Ql (Unsp spec) Not detected Normal NOT DETECTED [facility] Comment on above: Result Comment: When [...] for this test is supported by the [employer] / [employer] of Health and Human Service's declaration that [...] used). Performed By: #### C MP #### [facility] [address] [place] [address] Dr. Ramses Dumas ER URINE PROFILEon 2 Bilirubin Ql (U) Negative Normal NEGATIVE [facility] Comment on above: Performed By: #### U RCX #### [facility] [address] [place] [address] Dr. Ramses Dumas Clarity (U) CLEAR Normal CLEAR [facility] Comment on above: Performed By: #### U RCX #### [facility] [address] [place] [address] Dr. Ramses Dumas Color (U) LT. YELLOW Normal YELLOW [facility] Comment on above: Performed By: #### U RCX #### [facility] [address] [place] [address] Dr. Ramses DELEON A micrscopic examination will be performed if indicated. Normal [facility] Comment on above: Performed By: #### U RCX #### [facility] [address] [place] [address] Dr. Ramses Dumas Glucose Ql (U) Negative Normal NEGATIVE [facility] Comment on above: Performed By: #### U RCX #### [facility] [address] [place] [address] Dr. Ramses Dumas Hemoglobin Ql (U) SMALL Abnormal NEGATIVE [facility] Comment on above: Performed By: #### U RCX #### [facility] [address] [place] [address] Dr. Ramses Dumas Ketones Ql (U) Negative Normal NEGATIVE [facility] Comment on above: Performed By: #### U RCX #### [facility] [address] [place] [address] Dr. Ramses Dumas LEUKOCYTES SMALL Abnormal NEGATIVE [facility] Comment on above: Performed By: #### U RCX #### [facility] [address] [place] [address] Dr. Ramses Dumas Nitrite Ql (U) Negative Normal NEGATIVE [facility] Comment on above: Performed By: #### U RCX #### [facility] [address] [place] [address] Dr. Ramses Dumas pH (U) 7.0 [pH] Normal 5-9 [facility] Comment on above: Performed By: #### U RCX #### [facility] [address] [place] [address] Dr. Ramses Dumas Protein (U) [Mass/Vol] 30 mg/dL Abnormal NEGATIVE/ TRACE [facility] Comment on above: Performed By: #### U RCX #### [facility] [address] [place] [address] Dr. Ramses Dumas SPEC GRAVITY 1.020 Normal 1.005-<=1.02 5 [facility] Comment on above: Performed By: #### U RCX #### [facility] [address] [place] [address] Dr. Ramses Dumas UR MICRO IND INDICATED Normal [facility] Comment on above: Performed By: #### U RCX #### [facility] [address] [place] [address] Dr. Ramses Dumas Urobilinogen Qn (U) 0.2 {Lucero'U}/dL Normal 0.2 - 1. 0 [facility] Comment on above: Performed By: #### U RCX #### [facility] [address] [place] [address] Dr. Ramses Dumas LACTATE/LACTIC ACIDon 2021 Lactate [Moles/Vol] 2.3 mmol/L Critically high 0.4-1.9 [facility] Comment on above: Performed By: #### U RCX #### [facility] [address] [place] [address] Dr. Ramses Dumas URon 08-22-2022 , QUAL Negative Normal NEGATIVE [place] Comment on above: Performed By: #### U RCX #### [facility] [address] [address] [address] Ramses Dumas PROF 14(COMP METB)on 022 Albumin [Mass/Vol] 3.5 g/dL Normal 3.4-5.0 [facility] Comment on above: Performed By: #### U RCX #### [facility] [address] [place] [address] Dr. Ramses Dumas Albumin/Globulin [Mass ratio] 0.9 {ratio} Normal [facility] Comment on above: Performed By: #### U RCX #### [facility] [address] [place] [address] Dr. Ramses Dumas ALP [Catalytic activity/Vol] 92 U/L Normal 46-116 [facility] Comment on above: Performed By: #### U RCX #### [facility] [address] [place] [address] Dr. Ramses Dumas ALT [Catalytic activity/Vol] 139 U/L Critically high 14-59 [facility] Comment on above: Performed By: #### U RCX #### [facility] [address] [place] [address] Dr. Ramses Dumas Anion gap [Moles/Vol] 10.2 mmol/L Normal [facility] Comment on above: Performed By: #### U RCX #### [facility] [address] [place] [address] Dr. Ramses Dumas AST [Catalytic activity/Vol] 112 U/L Critically high 15-37 [facility] Comment on above: Performed By: #### U RCX #### [facility] [address] [place] [address] Dr. Ramses Dumas Bilirubin [Mass/Vol] 0.2 mg/dL Normal 0.2-1.0 [facility] Comment on above: Performed By: #### U RCX #### [facility] [address] [place] [address] Dr. Ramses Dumas Calcium [Mass/Vol] 8.8 mg/dL Normal 8.5-10.1 [facility] Comment on above: Performed By: #### U RCX #### [facility] [address] [address] [address] Ramses Dumas Chloride [Moles/Vol] 105 mmol/L Normal 98-107 [facility] Comment on above: Performed By: #### U RCX #### [facility] [address] [address] [address] Ramses Dumas CO2 [Moles/Vol] 26.3 mmol/L Normal 21.0-32.0 [facility] Comment on above: Performed By: #### U RCX #### [facility] [address] [place] [address] Dr. Ramses Dumas Creatinine [Mass/Vol] 0.95 mg/dL Normal 0.55-1.02 [facility] Comment on above: Performed By: #### U RCX #### [facility] [address] [place] [address] Dr. Ramses Dumas EGFR-AF CROATIAN >60 Normal >=60 [facility] Comment on above: Performed By: #### U RCX #### [facility] [address] [place] [address] Dr. Ramses Dumas EGFR-NON AF CROATIAN >60 Normal >=60 [facility] Comment on above: Performed By: #### U RCX #### [facility] [address] [place] [address] Dr. Ramses Dumas Globulin (S) [Mass/Vol] 3.9 g/dL Normal [facility] Comment on above: Performed By: #### U RCX #### [facility] [address] [place] [address] Dr. Ramses Dumas Glucose [Mass/Vol] 137 mg/dL Critically high 74-[address] [facility] Comment on above: Performed By: #### U RCX #### [facility] [address] [place] [address] Dr. Ramses Dumas Potassium [Moles/Vol] 3.5 mmol/L Normal 3.5-5.1 [facility] Comment on above: Performed By: #### U RCX #### [facility] [address] [place] [address] Dr. Ramses Dumas Protein [Mass/Vol] 7.4 g/dL Normal 6.4-8.2 [facility] Comment on above: Performed By: #### U RCX #### [facility] [address] [place] [address] Dr. Ramses Dumas Sodium [Moles/Vol] 138 mmol/L Normal 136-145 [facility] Comment on above: Performed By: #### U RCX #### [facility] [address] [place] [address] Dr. Ramses Dumas Urea nitrogen [Mass/Vol] 11.0 mg/dL Normal 7.0-18.0 [facility] Comment on above: Performed By: #### U RCX #### [facility] [address] [place] [address] Dr. Ramses Dumas Urea nitrogen/Creatinine [Mass ratio] 11.6 mg/mg Normal [facility] Comment on above: Performed By: #### U RCX #### [facility] [address] [place] [address] Dr. Ramses Dumas URINE MICROSCOPIC ONLYon BACTERIA LARGE Abnormal NONE SEEN [facility] Comment on above: Performed By: #### U RCX #### [facility] [address] [place] [address] Dr. Ramses Dumas Bacteria identified Cx Nom (U) CX ALREADY ORDERED Normal [facility] Comment on above: Performed By: #### U RCX #### [facility] [address] [place] [address] Dr. Ramses Dumas CAST NONE SEEN Normal NONE SEEN [facility] Comment on above: Performed By: #### U RCX #### [facility] [address] [place] [address] Dr. Ramses Dumas Crystals LM Nom (Urine sed) NONE SEEN Normal NONE SEEN [facility] Comment on above: Performed By: #### U RCX #### [facility] [address] [place] [address] Dr. Ramses Dumas Epithelial cells LM Ql (Urine sed) MANY Abnormal NONE SEEN /RARE [facility] Comment on above: Performed By: #### U RCX #### [facility] [address] [place] [address] Dr. Ramses Dumas MUCOUS NONE SEEN Normal NONE SEEN [facility] Comment on above: Performed By: #### U RCX #### [facility] [address] [place] [address] Dr. Ramses Dumas RBC 5-10 Abnormal 0-2 [facility] Comment on above: Performed By: #### U RCX #### [facility] [address] [place] [address] Dr. Ramses Dumas WBC 50-75 Abnormal NONE SEEN [facility] Comment on above: Performed By: #### U RCX #### [facility] [address] [place] [address] Dr. Ramses Dumas CULTURE URINEon 08-15-2022 CULTURE [...] F Tetracycline >=16 R F Normal [facility] Comment on above: Performed By: #### U RCX #### [facility] [address] [place] [address] Dr. Ramses Dumas ACETAMINOPHENon 08-13-2022 Acetaminophen [Mass/Vol] ug/mL Critically low 10.0-30.0 [facility] Comment on above: Performed By: #### U RCX #### [facility] [address] [place] [address] Dr. Ramses Dumas CBC AUTO DIFFon 08-13-2022 BASO # 0.1 103/ul Normal 0.0-0.1 [facility] Comment on above: Performed By: #### C VDTBH #### [facility] [address] [place] [address] Dr. Ramses Dumas Basophils/100 WBC (Bld) 0.8 % Normal 0.2-2.0 [facility] Comment on above: Performed By: #### C VDTBH #### [facility] [address] [place] [address] Dr. Ramses Dumas EO # 0.1 103/ul Normal 0.0-0.7 [facility] Comment on above: Performed By: #### C VDTBH #### [facility] [address] [place] [address] Dr. Ramses Dumas Eosinophils/100 WBC (Bld) 1.6 % Normal 0.9-7.0 [facility] Comment on above: Performed By: #### C VDTBH #### [facility] [address] [place] [address] Dr. Ramses Dumas Erythrocyte distribution width (RBC) [Ratio] 13.3 % Normal 11.0-15.0 [facility] Comment on above: Performed By: #### C VDTBH #### [facility] [address] [place] [address] Dr. Ramses Dumas Hematocrit (Bld) [Volume fraction] 40.6 % Normal 36.0-48.0 [facility] Comment on above: Performed By: #### C VDTBH #### [facility] [address] [place] [address] Dr. Ramses Dumas Hemoglobin (Bld) [Mass/Vol] 13.2 g/dL Normal 12.0-16.0 [facility] Comment on above: Performed By: #### C VDTBH #### [facility] [address] [place] [address] Dr. Ramses Dumas IG # 0.01 10e3/ul Normal 0.00-0.03 [facility] Comment on above: Performed By: #### C VDTBH #### [facility] [address] [place] [address] Dr. Ramses Dumas IG % 0.2 % Normal 0.0-0.5 [facility] Comment on above: Performed By: #### C VDTBH #### [facility] [address] [place] [address] Dr. Ramses Dumas LYMPH # 2.4 103/ul Normal 1.2-3.8 [facility] Comment on above: Performed By: #### C VDTBH #### [facility] [address] [place] [address] Dr. Ramses Dumas Lymphocytes/100 WBC (Bld) 37.7 % Normal 20.5-60.0 [facility] Comment on above: Performed By: #### C VDTBH #### [facility] [address] [place] [address] Dr. Ramses Dumas MANUAL DIFF REQ NO Normal [place] Comment on above: Performed By: #### C VDTBH #### [facility] [address] [place] [address] Dr. Ramses Dumas MCH (RBC) [Entitic mass] 26.7 pg Normal 26.7-34.0 [facility] Comment on above: Performed By: #### C VDTBH #### [facility] [address] [place] [address] Dr. Ramses Dumas MCHC (RBC) [Mass/Vol] 32.5 g/dL Normal 29.9-35.2 [facility] Comment on above: Performed By: #### C VDTBH #### [facility] [address] [place] [address] Dr. Ramses Dumas MCV (RBC) [Entitic vol] 82.0 fL Normal 81.0-99.0 [facility] Comment on above: Performed By: #### C VDTBH #### [facility] [address] [place] [address] Dr. Ramses Dumas MONO # 0.6 103/ul Normal 0.3-0.8 [facility] Comment on above: Performed By: #### C VDTBH #### [facility] [address] [place] [address] Dr. Ramses Dumas Monocytes/100 WBC (Bld) 8.6 % Normal 1.7-12.0 [facility] Comment on above: Performed By: #### C VDTBH #### [facility] [address] [place] [address] Dr. Ramses Dumas NEUT # 3.3 103/ul Normal 1.4-6.5 [facility] Comment on above: Performed By: #### C VDTBH #### [facility] [address] [place] [address] Dr. Ramses Dumas Neutrophils/100 WBC (Bld) 51.1 % Normal 43.0-75.0 [facility] Comment on above: Performed By: #### C VDTBH #### [facility] [address] [place] [address] Dr. Ramses Dumas Platelet mean volume (Bld) [Entitic vol] 8.7 fL Critically low 9.5-13.5 [facility] Comment on above: Performed By: #### C VDTBH #### [facility] [address] [place] [address] Dr. Ramses Dumas PLT 409 103/ul Normal 150-450 [facility] Comment on above: Performed By: #### C VDTBH #### [facility] [address] [place] [address] Dr. Ramses Dumas RBC 4.95 106/ul Normal 4.20-5.40 [facility] Comment on above: Performed By: #### C VDTBH #### [facility] [address] [place] [address] Dr. Ramses Dumas WBC 6.4 103/ul Normal 4.0-11.0 [facility] Comment on above: Performed By: #### C VDTBH #### [facility] [address] [place] [address] Dr. Ramses Dumas Covid-19 PCR ([facility])on 07-20 SARS-CoV-2 (COVID-19) RNA FRANCESCA+probe Ql (Unsp spec) Not detected Normal NOT DETECTED [facility] Comment on above: Result Comment: When [...] for this test is supported by the [place] of Health and Human Service's declaration that [...] used). Performed By: #### C VDTB #### [facility] [address] [place] [address] Dr. aRmses Dumas DRUG SCREEN RAPID (URINE)on 08-13-2022 AMP Negative Normal NEGATIVE [facility] Comment on above: Performed By: #### C BC #### [facility] [address] [place] [address] Dr. Ramses Dumas BAR Negative Normal NEGATIVE [facility] Comment on above: Performed By: #### C BC #### [facility] [address] [place] [address] Dr. Ramses Dumas BUP Negative Normal NEGATIVE [facility] Comment on above: Performed By: #### C BC #### [facility] [address] [place] [address] Dr. Ramses Dumas BZO Negative Normal NEGATIVE [facility] Comment on above: Performed By: #### C BC #### [facility] [address] [place] [address] Dr. Ramses Dumas ODILIA Negative Normal NEGATIVE [facility] Comment on above: Performed By: #### C BC #### [facility] [address] [place] [address] Dr. Ramses Dumas CUT-OFFS SEE BELOW Normal [...] ng/mL Performed By: #### C BC #### [facility] [address] [place] [address] Dr. Ramses Dumas DRUG CUT HEADER DRUG CLASS TEST SYSTEM CUT-OFF CONCENTRATIONS ARE FOLLOWS: Normal [facility] Comment on above: Performed By: #### C BC #### [facility] [address] [place] [address] Dr. Ramses Dumas mAMP Negative Normal NEGATIVE [facility] Comment on above: Performed By: #### C BC #### [facility] [address] [place] [address] Dr. Ramses Dumas MTD Negative Normal NEGATIVE [facility] Comment on above: Performed By: #### C BC #### [facility] [address] [place] [address] Dr. Ramses Dumas OPI Negative Normal NEGATIVE [facility] Comment on above: Performed By: #### C BC #### [facility] [address] [place] [address] Dr. Ramses Dumas OXY Negative Normal NEGATIVE [facility] Comment on above: Performed By: #### C BC #### [facility] [address] [place] [address] Dr. Ramses Dumas PCP Negative Normal NEGATIVE [facility] Comment on above: Performed By: #### C BC #### [facility] [address] [place] [address] Dr. Ramses Dumas PPX Negative Normal NEGATIVE [facility] Comment on above: Performed By: #### C BC #### [facility] [address] [place] [address] Dr. Ramses Dumas TCA Negative Normal NEGATIVE [facility] Comment on above: Performed By: #### C BC #### [facility] [address] [address] [address] Ramses Dumas THC Negative Normal NEGATIVE [facility] Comment on above: Performed By: #### C BC #### [facility] [address] [place] [address] Dr. Ramses Dumas ER URINE PROFILEon 2 Bilirubin Ql (U) Negative Normal NEGATIVE [facility] Comment on above: Performed By: #### C BC #### [facility] [address] [address] [address] Ramses Dumas Clarity (U) CLEAR Normal CLEAR [facility] Comment on above: Performed By: #### C BC #### [facility] [address] [place] [address] Dr. Ramses Dumas Color (U) LT. YELLOW Normal YELLOW [facility] Comment on above: Performed By: #### C BC #### [facility] [address] [place] [address] Dr. Ramses Dumas ERUCARLOS ENRIQUE A micrscopic examination will be performed if indicated. Normal [facility] Comment on above: Performed By: #### C BC #### [facility] [address] [place] [address] Dr. Ramses Dumas Glucose Ql (U) Negative Normal NEGATIVE [facility] Comment on above: Performed By: #### C BC #### [facility] [address] [address] [address] Ramses Dumas Hemoglobin Ql (U) LARGE Abnormal NEGATIVE [facility] Comment on above: Performed By: #### C BC #### [facility] [address] [address] [address] Ramses Dumas Ketones Ql (U) Negative Normal NEGATIVE [facility] Comment on above: Performed By: #### C BC #### [facility] [address] [place] [address] Dr. Ramses Dumas LEUKOCYTES LARGE Abnormal NEGATIVE [facility] Comment on above: Performed By: #### C BC #### [facility] [address] [place] [address] Dr. Ramses Dumas Nitrite Ql (U) Positive Abnormal NEGATIVE [facility] Comment on above: Performed By: #### C BC #### [facility] [address] [place] [address] Dr. Ramses Dumas pH (U) 6.0 [pH] Normal 5-9 [facility] Comment on above: Performed By: #### C BC #### [facility] [address] [place] [address] Dr. Ramses Dumas Protein (U) [Mass/Vol] 30 mg/dL Abnormal NEGATIVE/ TRACE [facility] Comment on above: Performed By: #### C BC #### [facility] [address] [place] [address] Dr. Ramses Dumas SPEC GRAVITY >=1.030 Abnormal 1.005-<=1.02 5 [facility] Comment on above: Performed By: #### C BC #### [facility] [address] [place] [address] Dr. Ramses Dumas UR MICRO IND INDICATED Normal [facility] Comment on above: Performed By: #### C BC #### [facility] [address] [place] [address] Dr. Ramses Dumas Urobilinogen Qn (U) 0.2 {Lucero'U}/dL Normal 0.2 - 1. 0 [facility] Comment on above: Performed By: #### C BC #### [facility] [address] [place] [address] Dr. Ramses Dumas ETHANOL (BLD ALC)on 08-13-20 ALC NOTE NOTE: 80 mg/dl is th e legal limit for a blood alcohol level Normal [facility] Comment on above: Performed By: #### B LDCX2 #### [facility] [address] [place] [address] Dr. Ramses Dumas Ethanol [Mass/Vol] mg/dL Normal [facility] Comment on above: Performed By: #### B LDCX2 #### [facility] [address] [place] [address] Dr. Ramses Dumas URon 08-13-2022 , QUAL Negative Normal NEGATIVE [facility] Comment on above: Performed By: #### C BC #### [facility] [address] [place] [address] Dr. Ramses Dumas PROF 14(COMP METB)on 022 Albumin [Mass/Vol] 3.8 g/dL Normal 3.4-5.0 [facility] Comment on above: Performed By: #### U RCX #### [facility] [address] [place] [address] Dr. Ramses Dumas Albumin/Globulin [Mass ratio] 0.9 {ratio} Normal [facility] Comment on above: Performed By: #### U RCX #### [facility] [address] [place] [address] Dr. Ramses Dumas ALP [Catalytic activity/Vol] 82 U/L Normal 46-116 [facility] Comment on above: Performed By: #### U RCX #### [facility] [address] [place] [address] Dr. Ramses Dumas ALT [Catalytic activity/Vol] 41 U/L Normal 14-59 [facility] Comment on above: Performed By: #### U RCX #### [facility] [address] [place] [address] Dr. Ramses Dumas Anion gap [Moles/Vol] 9.3 mmol/L Normal [facility] Comment on above: Performed By: #### U RCX #### [facility] [address] [place] [address] Dr. Ramses Dumas AST [Catalytic activity/Vol] 21 U/L Normal 15-37 [facility] Comment on above: Performed By: #### U RCX #### [facility] [address] [place] [address] Dr. Ramses Dumas Bilirubin [Mass/Vol] 0.3 mg/dL Normal 0.2-1.0 [facility] Comment on above: Performed By: #### U RCX #### [facility] [address] [place] [address] Dr. Ramses Dumas Calcium [Mass/Vol] 8.9 mg/dL Normal 8.5-10.1 [facility] Comment on above: Performed By: #### U RCX #### [facility] [address] [place] [address] Dr. Ramses Dumas Chloride [Moles/Vol] 105 mmol/L Normal 98-107 [facility] Comment on above: Performed By: #### U RCX #### [facility] [address] [address] [address] Ramses Dumas CO2 [Moles/Vol] 28.5 mmol/L Normal 21.0-32.0 [facility] Comment on above: Performed By: #### U RCX #### [facility] [address] [place] [address] Dr. Ramses Dumas Creatinine [Mass/Vol] 0.81 mg/dL Normal 0.55-1.02 [facility] Comment on above: Performed By: #### U RCX #### [facility] [address] [place] [address] Dr. Ramses Dumas EGFR-AF CROATIAN >60 Normal >=60 [facility] Comment on above: Performed By: #### U RCX #### [facility] [address] [place] [address] Dr. Ramses Dumas EGFR-NON AF CROATIAN >60 Normal >=60 [facility] Comment on above: Performed By: #### U RCX #### [facility] [address] [place] [address] Dr. Ramses Dumas Globulin (S) [Mass/Vol] 4.1 g/dL Normal [facility] Comment on above: Performed By: #### U RCX #### [facility] [address] [address] [address] Ramses Dumas Glucose [Mass/Vol] 100 mg/dL Normal 74-106 [facility] Comment on above: Performed By: #### U RCX #### [facility] [address] [place] [address] Dr. Ramses Dumas Potassium [Moles/Vol] 3.8 mmol/L Normal 3.5-5.1 [facility] Comment on above: Performed By: #### U RCX #### [facility] [address] [address] [address] Ramses Dumas Protein [Mass/Vol] 7.9 g/dL Normal 6.4-8.2 [facility] Comment on above: Performed By: #### U RCX #### [facility] [address] [address] [address] Ramses Dumas Sodium [Moles/Vol] 139 mmol/L Normal 136-145 [facility] Comment on above: Performed By: #### U RCX #### [facility] [address] [address] [address] Ramses Dumas Urea nitrogen [Mass/Vol] 10.0 mg/dL Normal 7.0-18.0 [facility] Comment on above: Performed By: #### U RCX #### [facility] [address] [address] [address] Ramses Dumas Urea nitrogen/Creatinine [Mass ratio] 12.3 mg/mg Normal [facility] Comment on above: Performed By: #### U RCX #### [facility] [address] [address] [address] Ramses Dumas SALICYLATEon 08-13-2022 SALICYLATE <2.8 Normal <=19.9 [facility] Comment on above: Performed By: #### U RCX #### [facility] [address] [address] [address] Ramses Dumas URINE MICROSCOPIC ONLYon BACTERIA LARGE Abnormal NONE SEEN [facility] Comment on above: Performed By: #### C BC #### [facility] [address] [address] [address] Ramses Dumas Bacteria identified Cx Nom (U) INDICATED Normal [facility] Comment on above: Performed By: #### C BC #### [facility] [address] [address] [address] Ramses Dumas CA OX CRYSTALS RARE Normal [facility] Comment on above: Performed By: #### C BC #### [facility] [address] [place] [address] Dr. Ramses Dumas CAST NONE SEEN Normal NONE SEEN [facility] Comment on above: Performed By: #### C BC #### [facility] [address] [place] [address] Dr. Ramses Dumas Crystals LM Nom (Urine sed) SEEN Abnormal NONE SEEN [facility] Comment on above: Performed By: #### C BC #### [facility] [address] [place] [address] Dr. Ramses Dumas Epithelial cells LM Ql (Urine sed) MODERATE Abnormal NONE SEEN /RARE [facility] Comment on above: Performed By: #### C BC #### [facility] [address] [place] [address] Dr. Ramses Dumas MUCOUS NONE SEEN Normal NONE SEEN [facility] Comment on above: Performed By: #### C BC #### [facility] [address] [place] [address] Dr. Ramses Dumas RBC 10-20 Abnormal 0-2 [facility] Comment on above: Performed By: #### C BC #### [facility] [address] [place] [address] Dr. Ramses Dumas WBC 20-50 Abnormal NONE SEEN [facility] Comment on above: Performed By: #### C BC #### [facility] [address] [place] [address] Dr. Ramses Dumas Pap IG,rfx Aptima HPV all pt hon 08-09-2022 . . Normal [facility] Comment on above: Performed By: #### C MP #### [facility] [address] [place] [address] Dr. Ramses Dumas DIAGNOSIS: Comment Abnormal [facility] Comment on above: Result Comment: EPIT HELIAL CELL ABNORMALITY. LOW GRADE SQUAMOUS INTRAEPITHELIAL LESION (LSIL). Performed By: #### C MP #### [facility] [address] [place] [address] Dr. Ramses Dumas Electronically signed by: Comment Normal [facility] Comment on above: Result Comment: Arnaud Joseph MD, Pathologist Performed By: #### C MP #### [facility] [address] [address] [address] Ramses Dumas HPV Aptima Negative Normal Negative [facility] Comment on above: Result Comment: This nucleic acid amplification test detects fourteen high-risk HPV types (16,18,31,33,35,39,45,51,52,56,58,59,66,68) without differentiation. Performed By: #### C MP #### [facility] [address] [address] [address] Ramses Dumas Methodology: Comment Normal [facility] Comment on above: Result Comment: This liquid based ThinPrep(R) pap test was screened with the use of an image guided system. Performed By: #### C MP #### [facility] [address] [place] [address] Dr. Ramses Dumas Note: Comment Normal [facility] [...] . Performed By: #### C MP #### [facility] [address] [place] [address] Dr. Ramses Dumas Pathologist Provided ICD10 Comment Normal [facility] Comment on above: Result Comment: [id number] Performed By: #### C MP #### [facility] [address] [place] [address] Dr. Ramses Dumas Performed by: Comment Normal [facility] Comment on above: Result Comment: Gail Ruano, National Accounts Recruiter (ASCP) Performed By: #### C MP #### [facility] [address] [place], [place] [id number] Dr. Ramses Dumas Reflex Criteria: Comment Normal [facility] Comment on above: Result Comment: See below for HPV testing results. . Performed By: #### C MP #### [facility] [address] [place], [place] [id number] Dr. Ramses Dumas Specimen adequacy: Comment Normal [facility] Comment on above: Result Comment: Sati sfactory for evaluation. Endocervical and/or squamous metaplastic cells (endocervical component) are present. Performed By: #### C MP #### [facility] [address] [place] [address] Dr. Ramses Dumas Vital Signs Date Time Vital Sign Value Performing Clinician Facility 04-05-2025 13:06-0400 Body mass index (BMI) [Ratio] 29.86 kg/m2 Jefferson [employer] Work Phone: [facility] 04-05-2025 13:06-0400 Body weight 83.92 kg Jefferson Bernie [employer] Work Phone: [facility] 04-05-2025 13:06-0400 Diastolic blood pressure 72 mm[Hg] [facility] Work Phone: [facility] 04-05-2025 13:06-0400 Systolic blood pressure 124 mm[Hg] [facility] Work Phone: [facility] 01-29-2025 09:23-0400 Body temperature 98.1 [degF] Luis Felipe Delacruz MD [facility] 01-29-2025 09:23-0400 Diastolic blood pressure 86 mm[Hg] Luis Felipe Delacruz MD Work Phone[facility] 01-29-2025 09:23-0400 Heart rate 81 /min Luis Felipe Delacruz MD Work Phone: [facility] 01-29-2025 09:23-0400 Respiratory rate 18 /min Luis Felipe Delacruz MD Work Phone: [facility] 01-29-2025 09:23-0400 SaO2% (BldA) [Mass fraction] 100 % Luis Felipe Delacruz MD Work Phone: [facility] 01-29-2025 09:23-0400 Systolic blood pressure 129 mm[Hg] Luis Felipe Delacruz MD Work Phone: [facility] 01-29-2025 06:00-0400 Body mass index (BMI) [Ratio] 29.01 kg/m2 Luis Felipe Delacruz MD Work Phone: [facility] 01-29-2025 06:00-0400 Body weight 81.5 kg Luis Felipe Delacruz MD Work Phone: [facility] 01-27-2025 10:01-0400 Body height 167.6 cm Luis Felipe Delacruz MD Work Phone: [facility] 01-22-2025 11:49-0400 Body temperature 97.7 [degF] Luis Felipe Delacruz MD Work Phone: [facility] 01-22-2025 11:49-0400 Diastolic blood pressure 75 mm[Hg] Luis Felipe Delacruz MD Work Phone: [facility] 01-22-2025 11:49-0400 Heart rate 54 /min Luis Felipe Delacruz MD Work Phone: [facility] 01-22-2025 11:49-0400 Respiratory rate 15 /min Luis Felipe Delacruz MD Work Phone: [facility] 01-22-2025 11:49-0400 SaO2% (BldA) [Mass fraction] 98 % Luis Felipe Delacruz MD Work Phone: [facility] 01-22-2025 11:49-0400 Systolic blood pressure 108 mm[Hg] Luis Felipe Delacruz MD Work Phone: [facility] 01-21-2025 23:45-0400 Body height 167.6 cm Luis Felipe Delacruz MD Work Phone: [facility] 01-21-2025 23:45-0400 Body mass index (BMI) [Ratio] 28.23 kg/m2 Luis Felipe Delacruz MD Work Phone: [facility] 01-21-2025 23:45-0400 Body weight 79.3 kg Luis Felipe Delacruz MD Work Phone: [facility] 04-10-2024 07:30-0400 Body temperature 98 [degF] MD Domingo Snyder Work Phone: [facility] 04-10-2024 07:30-0400 Diastolic blood pressure 73 mm[Hg] MD Domingo Snyder Work Phone: [facility] 04-10-2024 07:30-0400 Heart rate 75 /min MD Domingo Snyder Work Phone: [facility] 04-10-2024 07:30-0400 Respiratory rate 16 /min MD Domingo Snyder Work Phone: [facility] 04-10-2024 07:30-0400 SaO2% (BldA) [Mass fraction] 100 % MD Domingo Snyder Work Phone: [facility] 04-10-2024 07:30-0400 Systolic blood pressure 123 mm[Hg] MD Domingo Snyder Work Phone: [facility] 04-08-2024 22:44-0400 Body height 167.64 cm MD Domingo Snyder Work Phone: [facility] 04-08-2024 22:44-0400 Body weight 86.58 kg MD Domingo Snyder Work Phone: [facility] 03-20-2023 10:30-0400 Blood Pressure Location Nona RAYGOZA [facility] 03-20-2023 10:30-0400 Diastolic blood pressure 73 mm[Hg] Nona RAYGOZA [facility] 03-20-2023 10:30-0400 Heart rate 80 /min Nona RAYGOZA [facility] 03-20-2023 10:30-0400 Respiratory rate 16 /min Nona RAYGOZA [facility] 03-20-2023 10:30-0400 Systolic blood pressure 128 mm[Hg] Nona RAYGOZA [facility] Encounters Encounter Date Encounter Type Care [...] Start: 05-05-2025 End: 05-05-2025 ambulatory Vj Fraire [facility] Work Phone: Start: 05-05-2025 End: 05-05-2025 Departed Referred Vj Fraire DO -[facility] Start: 04-24-2025 End: 04-24-2025 Bamboo steven Leiva MD Work Phone: [facility] Start: 04-24-2025 End: 04-24-2025 Bamboo steven Leiva MD Work Phone: [facility] Start: 04-24-2025 End: 04-24-2025 Postop follow up visit related to original px Patrick Leiva MD Work Phone: [facility] Comment on above: Encounter for [...] Start: 03-16-2025 End: 03-16-2025 ambulatory Adonis Guerra Facility:[facility] Start: 01-26-2025 End: 01-29-2025 Evaluation and management of inpatient Luis Felipe Delacruz MD Work Phone: [facility] Renal//Med Surg Comment on above: Bilateral ureteral c alculi; Acute postoperative pain Start: 01-26-2025 Emergency department patient visit DOMINGO RICHYane Facility:[facility] Start: 01-21-2025 End: 01-22-2025 Evaluation and management of inpatient Luis Felipe Delacruz MD Work Phone: [facility] 3C MED SURG Comment on above: Acute postoperative pain (Primary Dx); Renal calculus, left Start: 01-21-2025 End: 01-21-2025 ambulatory Domingo Snyder MD Work Phone: [facility] Work Phone: Start: 01-21-2025 End: 01-21-2025 Departed Referred Domingo Snyder MD Work Phone: [facility] Start: 01-17-2025 End: 01-19-[address] [facility] Start: 01-17-2025 End: 01-19-2025 Subsequent hospital visit by physician Octavio Shi Rn [facility] Special Procedures Comment on above: Arrived VUR (vesicoureteric reflux) Start: 01-05-2025 End: 01-07-2025 [facility] Start: 12-02-2024 End: 12-02-2024 ambulatory Domingo Snyder MD Work Phone: [facility] Work Phone: Start: 12-02-2024 End: 12-02-2024 Departed Referred Domingo Snyder MD Work Phone: [facility] Start: 06-16-2024 End: 10-03-2024 ambulatory [place] Start: 04-09-2024 Non-patient / Non-visit MD Vicente Snyder Work Phone: [facility] Out[facility] Work Phone: Start: 04-08-2024 End: 04-10-2024 Evaluation and management of inpatient MD Domingo Snyder Work Phone: [facility] Work Phone: Start: 12-04-2023 End: 12-05-2023 ambulatory Nona RAYGOZA Facility:[facility] Start: 12-04-2023 End: 12-04-2023 Patient encounter procedure Nona RAYGOZA [facility] Start: 04-10-2023 End: 04-10-2023 Patient encounter status Jefferson Gibbs DO Work Phone: [facility] Start: 04-09-2023 End: 04-10-2023 ambulatory Nona RAYGOZA Facility:[id number] Start: 03-20-2023 End: 03-21-2023 ambulatory Nona RAYGOZA Facility:[facility] Start: 03-20-2023 End: 03-20-2023 Patient encounter procedure Nona RAYGOZA [facility] Start: 02-16-2023 End: 02-16-[address] DOMINGO SNYDER . Facility:[facility] Start: 02-02-2023 End: 02-02-[address] DOMINGO SNYDER . Facility:[facility] Start: 12-26-2022 End: 12-27-2022 ambulatory Nona RAYGOZA Facility:[facility] Start: 12-26-2022 End: 12-26-2022 Patient encounter procedure Nona RAYGOZA [facility] Start: 12-16-2022 End: 12-17-[address] NONA RAYGOZA . Facility:[facility] Start: 12-15-2022 End: 12-16-[address] NONA RAYGOZA . Facility:[facility] Start: 11-27-[address] DOMINGO SNYDER . Facili ty:[facility] Start: 11-07-2022 End: 11-07-[address] DOMINGO SNYDER . Facility:[facility] Start: 11-04-2022 Encounter for preprocedural cardiovascular examination DR JEFFERSON GIBBS . [facility] Start: 11-04-2022 Encounter for preprocedural laboratory examination DR JEFFERSON GIBBS . [facility] Start: 11-03-2022 End: 11-04-2022 Encounter for preprocedural cardiovascular examination DR DOMINGO SNYDER . Facility:[facility] Start: 11-03-2022 End: 11-04-[address] DOMINGO SNYDER . Facility:[facility] Start: 09-20-2022 Encounter for preprocedural laboratory examination DR NONA RAYGOZA . [facility] Start: 09-18-2022 End: 09-18-[address] NONA RAYGOZA . Facility:[facility] Start: 09-16-2022 End: 09-17-[address] NONA RAYGOZA . Facility:[facility] Start: 09-16-2022 End: 09-17-2022 Encounter for preprocedural laboratory examination DR NONA RAYGOZA . Facility:[facility] Start: 09-05-2022 End: 09-05-2022 ambulatory ORA BOND . 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 Facility:[facility] Start: 08-13-2022 End: 08-13-2022 ambulatory ORA BOND . Facility:[facility] Start: 07-31-2022 Encounter for cervic al smear to confirm findings of recent normal smear following initial abnormal smear DR JEFFERSON GIBBS . [facility] Start: 07-30-2022 End: 07-30-[address] [...] Work Phone: Start: 01-27-2025 CULTURE, BLOOD 1 [facility] sarahy Arora DO Work Phone: Start: 01-27-2025 CULTURE, BLOOD 1 [facility] sarahy Hemphill DO Work Phone: Start: 01-27-2025 Basic metabolic pane l calcium total Kyung Miester ENTRY LEVEL ACCOUNTANT - [employer] ADMINISTRATOR Work Phone: Start: 01-26-2025 Basic metabolic pane [...] DTaP/Tdap/Td vaccine (7 - Td or Tdap) [facility] Start: 05-29-2026 End: 05-29-2026 Patient encounter procedure 05/29/2026 1:15 PM EDT Office Visit [facility] [address] [place] [address] Patrick Leiva MD [address] [place] [address] [facility] [place] [facility] Start: 04-09-2026 End: 04-09-2026 Patient encounter procedure [facility] Start: 05-29-2025 End: 05-29-2025 Patient encounter procedure [facility] [place] [facility] Comment on above: Arrived Start: 05-19-2025 Influenza vaccination Flu vaccine (Season Ended) [facility] Start: 05-15-2025 End: 05-15-2025 Patient encounter procedure 05/15/2025 3:30 PM EDT Office Visit [facility] [address] [place] [id number] Patrick Leiva MD [address] [place] [address] [facility] Start: 05-05-2025 Urine culture [facility] Start: 05-05-2025 Bacteria identified in Urine by Culture Urine Culture [facility] Start: 04-24-2025 End: 04-24-2025 Patient encounter procedure [facility] Comment on above: Arrived Start: 04-10-2025 End: 04-10-2025 Patient encounter procedure [facility] Comment on above: Arrived Start: 04-05-2025 End: 04-05-2025 Patient encounter procedure 04/05/2025 1:00 PM EDT Office Visit [facility] [address] [place] [id number] Jefferson Gibbs DO [address] [place] [address] Arrived [facility] Comment on above: Arrived Start: 01-22-2025 End: 01-22-2025 CYSTOSCOPY URETERAL STENT INSERTION CYSTOSCOPY URETERAL STENT INSERTION Renal calculus, left 01/22/2025 9:28 AM EDT [facility] Start: 01-21-2025 Urine culture [facility] Start: 01-21-2025 Bacteria identified in Urine by Culture Urine Culture [facility] Start: 12-02-2024 Urine culture [facility] Start: 12-02-2024 Bacteria identified in Urine by Culture Urine Culture [facility] Start: 06-19-2024 COVID-19 Vaccine ( season) COVID-19 Vaccine ( season) [facility] Start: 04-10-2024 [facility] Start: 04-08-2024 Referral to [facility] Start: 04-08-2024 Hospital admission [facility] Start: 04-08-2024 [facility] Start: 06-19-2022 Influenza vaccination INFLUENZA (#1) [facility] Start: 10-19-2021 DEPRESSION ASSESSMENT DEPRESSION ASSESSMENT [facility] Start: 2021 HPV TESTING HPV TESTING [facility] Start: 2021 Screening for malignant neoplasm of cervix [facility] Start: 2012 PAP TESTING PAP TESTING [facility] Start: 2012 Screening for malignant neoplasm of cervix Pap smear [facility] Start: 2010 Urine microalbumin profile DTAP,TDAP,TD (1 - Tdap) [facility] Start: 2009 HEPATITIS C SCREENING HEPATITIS C SCREENING [facility] Start: 2009 Hepatitis C screening Hepatitis C screen [facility] Start: 2009 HIV SCREENING HIV SCREENING [facility] Start: 2006 HIV screening [facility] Start: 2004 Varicella vaccine (1 of 2 - 13+ 2-dose series) Varicella vaccine (1 of 2 - 13+ 2-dose series) [facility] Start: 2003 Depression Screen Depression Screen [facility] Start: 1995 Polio vaccine (4 of 4 - 4-dose series) Polio vaccine (4 of 4 - 4-dose series) [facility] Start: 03-14-1992 COVID-19 VACCINE (#1) COVID-19 VACCINE (#1) [facility] Start: 1991 HEPATITIS B (1 of 3 - 3-dose series) HEPATITIS B (1 of 3 - 3-dose series) [facility] End: 01-24-2025 Basic metabolic 2000 panel - Serum or Plasma Basic metabolic panel Lab Routine Daily for 3 Days starting 01/22/2025 until 01/24/2025, 1 completed [email or web address] Comment on above: Daily for 3 Days starting 01/22/2025 unt il 01/24/2025, 1 completed End: 01-24-2025 CBC W Auto Differential panel - Blood CBC with Auto Differential Lab Routine Daily for 3 Days starting 01/22/2025 until 01/24/2025 [employer] Comment on above: Daily for 3 Days starting 01/22/2025 unt il 01/24/2025 Culture, Blood 1 [employer] Culture, Urine [employer] Comment on above: Release Upon Ordering for 1 Occurrences starting 01/22/2025 Cytology Cervical or vaginal smear or scraping study Pap Smear Pathology and Cytology Routine Well woman exam with routine gynecological exam Ordered: 04/05/2025 [employer] Work Phone: Comment on above: Ordered: 04/05/2025 Dermatopathology exam Dermatopat hology exam Pathology and Cytology Timed Neoplasm of unspecified behavior of bone, soft tissue, and skin Release Upon Ordering for 1 Occurrences starting 04/10/2025 [email or web address] Phone: Comment on above: Release Upon Ordering for 1 Occurrences starting 04/10/2025 Dermatopathology exam Dermatopat hology exam Pathology and Cytology Timed Neoplasm of unspecified behavior of bone, soft tissue, and skin Release Upon Ordering for 1 Occurrences starting 05/15/2025 [employer] Work Phone: Comment on above: Release Upon Ordering for 1 Occurrences starting 05/15/2025 End: 01-22-2025 Glucose [Mass/volume] in Serum or Plasma POCT Glucose Point of Care Testing Routine One Time for 1 Occurrences starting 01/22/2025 until 01/22/2025 [employer] Work Phone: Comment on above: One Time for 1 Occurrences starting 03/2025 until 01/22/2025 Human papilloma viru s DNA [Presence] in Unspecified specimen by Probe with amplification HPV DNA probe, amplified Microbiology Routine Well woman exam with routine gynecological exam Ordered: 04/05/2025 [facility] Comment on above: Ordered: 04/05/2025 Oxygen therapy [Mini mum Data Set] Initiate Oxygen Therapy Protocol Respiratory Care Routine As Needed until discontinued starting 01/21/2025 [employer] Comment on above: As Needed until discontinued starting Oxygen therapy [Mini mum Data Set] Initiate Oxygen Therapy Protocol Respiratory Care Routine As Needed until discontinued starting 01/26/2025 [employer] Comment on above: As Needed until discontinued starting Patient Education Bipolar Disord er (DC) [facility] [place] Instructions Know your Meds [facility] Work Phone: Patient referral [facility] Work Phone: End: 01-22-2025 Stone Analysis Stone Analysis Microbiology Routine One Time for 1 Occurrences starting 01/22/2025 until 01/22/2025 [employer] Work Phone: Comment on above: One Time for 1 Occurrences starting 03/2025 until 01/22/2025 Stone Analysis Stone Analysis Microbiology [employer] Label Print 01/22/2025 4:44 AM EDT [employer] End: 01-26-2025 Stone Analysis Stone Analysis Microbiology Routine One Time for 1 Occurrences starting 01/26/2025 until 01/26/2025 [employer] Comment on above: One Time for 1 Occurrences starting 01/17 until 01/26/2025 Immunizations Immunization Date Immunization Notes Care Provider Beata moore 08-01-2019 influenza virus vaccine, unspecified formulation Nona RAYGOZA [facility] 08-09-2018 tetanus toxoid, redu franco diphtheria toxoid, and acellular pertussis vaccine, adsorbed Nona RAYGOZA [facility] 08-08-2018 influenza virus vaccine, unspecified formulation Nona RAYGOZA [facility] 06-19-2004 hepatitis B vaccine, pediatric or pediatric/adolescent dosage Nona RAYGOZA [facility] 03-27-2004 hepatitis B vaccine, pediatric or pediatric/adolescent dosage Nona RAYGOZA [facility] 12-18-2003 hepatitis B vaccine, pediatric or pediatric/adolescent dosage Nona RAYGOZA [facility] 12-18-2003 measles, mumps and rubella virus vaccine Nona RAYGOZA [facility] 04-10-1993 DTaP, unspecified formulation Entrada [facility] 04-10-1993 poliovirus vaccine, unspecified formulation Entrada [facility] 12-28-1992 Hib, unspecified formulation Nona RAYGOZA [facility] 12-28-1992 measles, mumps and rubella virus vaccine Nona Motista [facility] 03-26-1992 Hib, unspecified formulation Nona RAYGOZA [facility] 01-18-1992 Hib, unspecified formulation Nona RAYGOZA [facility] 1991 Hib, unspecified formulation Nona RAYGOZA [facility] Payers Date Payer Category Payer Self-pay 2023 Private Health Insurance [employer] [id number] 2023 Unknown [id number] 2021 Medicaid [place] MEDICAID TERM 09/17 [facility] MEDICAID [id number] 2021-Present [phone] [address] [place] [address] Medicaid [id number] 1991 Unknown [id number] 2.16.840.1.188189.3.579.2. 593 1991 Unknown [id number] 2.16.840.1.774974.3.579.2. 593 1991 Unknown [id number] 2.16.840.1.424939.3.579.2. 593 1991 Unknown [id number] 2.16.840.1.595117.3.579.2. 593 1991 Unknown [id number] 2.16.840.1.248702.3.579.2. 593 1991 Unknown [id number] 2.16.840.1.876172.3.579.2. 593 1991 Unknown [id number] 2.16.840.1.967347.3.579.2. 593 1991 Unknown [id number] 2.16.840.1.391668.3.579.2. 593 1991 Unknown [id number] 2.16.840.1.036892.3.579.2. 593 1991 Unknown [id number] 2.16.840.1.762898.3.579.2. 593 1991 Unknown [id number] 2.16.840.1.574556.3.579.2. 593 1991 Unknown [id number] 2.16.840.1.527842.3.579.2. 593 1991 Unknown [id number] 2.16.840.1.402541.3.579.2. 593 1991 Unknown [id number] 2.16.840.1.341156.3.579.2. 593 1991 Unknown [id number] 2.16.840.1.269097.3.579.2. 593 1991 Unknown [id number] 2.16.840.1.354567.3.579.2. 593 1991 Unknown [id number] 2.16.840.1.551862.3.579.2. 727 1991 Unknown [id number] 2.16.840.1.077699.3.579.2. 727 1991 Unknown [id number] 2.16.840.1.376935.3.579.2. 727 1991 Unknown [id number] 2.16.840.1.411167.3.579.2. 727 1991 Unknown [id number] 2.16.840.1.864602.3.579.2. 174 1991 Unknown [id number] 2.16.840.1.392173.3.579.2. 175 1991 Unknown [id number] 2.16.840.1.379534.3.579.2. 175 1991 Unknown [id number] 2.16.840.1.920772.3.579.2. 175 1991 Unknown [id number] 2.16.840.1.751015.3.579.2. 175 1991 Unknown [id number] 2.16.840.1.138087.3.579.2. 718 1991 Unknown [id number] 2.16.840.1.650410.3.579.2. 1259 1991 Unknown [id number] 2.16.840.1.233013.3.579.2. 1259 1991 Unknown [id number] 2.16.840.1.965011.3.579.2. 1259 1991 Unknown [id number] 2.16.840.1.605676.3.579.2. 1259 1958 Medicaid [id number] 1958 Self-pay [id number] 1959 Unknown [id number] Unknown [id number] 2.16.840.1.977513.3.579.2. 531 Unknown [id number] 2.16.840.1.747379.3.579.2. 531 Unknown [id number] 2.16.840.1.547573.3.579.2. 531 Social History Date Type Detail Facility [facility] consumption [facility] Start: 1990 Sex Assigned At Not on file [facility] Start: 08-20-2021 End: 04-10-2025 Tobacco smoking status Never smoked tobacco (finding) [facility] Tobacco smoking status Never [facility] Start: 01-22-2025 End: 05-15-2025 Sex Assigned At Female [facility] Start: 1990 Sex Assigned At Female F [facility] Start: 11-24-2024 End: 12-04-2024 Sex Female (finding) [facility] Start: 01-22-2025 End: 04-10-2025 Tobacco use and exposure Smokeless tobacco non-user [employer] Start: 01-22-2025 End: 01-27-2025 Alcoholic beverage intake Ex-drinker (finding) [employer] Start: 01-22-2025 End: 05-15-2025 History of Social function [employer] Has the [employer], or [employer] threatened to shut off services in your home in past 12Mo No [employer] (I/We) worried wheth er (my/our) food would run out before (I/we) got money to buy more. Never true [employer] Start: 01-10-2024 End: 05-29-2025 Alcoholic beverage intake Lifetime non-drinker (finding) [facility] Medical Equipment Procedure Code Equipment Code Equipment Origin al Text Equipment Identifier Dates Stent Uret 6fr L 26cm Percflx Hydr+ Tapr Tip Grad - [id number] ()[id number] [id number] , [id number] FDA Start: 01-22-2025 Stent Uret 6fr L 26cm Percflx Hydr+ Dbl Pgtl Thrd 2 - [id number] ()[id number] [id number] , [id number], [id number] FDA Start: 01-27-2025 Goals Date Patient Goal Desired Activity /State Functional Status Date Assessment Result Facility 04-10-2024 Functional status Patient at [facility] Work Phone: 03-20-2023 Functional Status N/A [facility] Mental Status Date Assessment Result Facility 04-10-2024 Cognitive function Cognitive Sta tus Patient at Baseline [facility] Work Phone: Clinical Notes 07-03-2022 [...] year, skin check documented in this encounter [facility] 05-15-2025 History of Present illness Narrative [...] nevus Check Margins: Yes Previous accession number: [id number] 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, soft tissue, and skin Plan: Skin excision, Skin repair Follow up: 14 days for s/r documented in this encounter [facility] 04-24-2025 History of Present illness Narrative [...] Visit: as scheduled documented in this encounter [facility] 04-10-2025 History of Present illness Narrative [...] OF RIGHT UPPER EYELID Right Upper Eyelid Hartman papule Favor possible stye, recommend patient continue [...] Visit: 2 weeks documented in this encounter [facility] 04-05-2025 History of Present illness Narrative [...] (BMI) of 40.1 to 44.9 in adult ([facility]) 04/10/2023 Encounter for follow-up examination after completed treatment for conditions other than malignant neoplasm 04/10/2023 IUD contraception 04/10/2023 Menorrhagia with regular cycle 04/10/2023 Anti-M isoimmunization affecting , 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 Anxiety 07/26/2020 Bipolar disorder ([facility]) 06/01/2023 Dysuria 06/01/2023 Entrapment of left ulnar nerve 06/01/2023 Feeling of incomplete bladder emptying 06/01/2023 Flank pain 06/01/2023 Frequency of urination 06/01/2023 History of chlamydia 07/26/2020 History of gestational diabetes 07/26/2020 History of kidney stones 06/01/2023 Hypercalciuria 06/01/2023 Hyperoxaluria 06/01/2023 Intrauterine ([facility]) 02/18/2018 Lesion of ulnar nerve 06/01/2023 Mass of scalp 06/01/2023 Muscle pain 06/01/2023 Microhematuria 06/01/2023 Astigmatism 05/05/2017 Nocturia 06/01/2023 Overweight 06/01/2023 Pyelonephritis 06/01/2023 Kidney stone 06/01/2023 Retroflexion of uterus 06/01/2023 Sprain of calcaneofibular ligament 06/01/2023 Streptococcal pharyngitis 06/01/2023 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/01/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 06/01/2023 Superficial thrombophlebitis 06/01/2023 Term delivery with labor in third trimester ([facility]) 08/06/2018 Urge incontinence 06/01/2023 Urinary urgency 06/01/2023 UTI (urinary tract infection) 06/01/2023 Mass of left breast 01/08/2024 Resolved Ambulatory Problems Diagnosis Date Noted Encounter for gynecological examination (general) (routine) without abnormal findings 04/10/2023 Past Medical History: Diagnosis Date Abnormal Pap smear of cervix Anxiety and depression Bipolar 1 disorder (HCC) Bladder prolapse, congenital ([facility]) Dysplasia of cervix S/P VH (vaginal hysterectomy) 05/06/2023 Yeast infection HISTORY PAST MEDICAL HISTORY SOCIAL HISTORY Past Medical History: Diagnosis Date Abnormal Pap smear of cervix Anxiety and depression Bipolar 1 disorder (HCC) Bladder prolapse, congenital ([facility]) Dysplasia of cervix History of [...] nursing note reviewed. Exam conducted with a preform machine operator present. Vitals: Estimated body mass [...] them. Patient can also view results via [employer]. I reinforced importance of condom use for [...] Jefferson Gibbs DO documented in this encounter [facility] 01-29-2025 History of Present illness Narrative Patient given all discharge instructions and education. Patient and present for teaching. Patient voices she still has antibiotic at home and was instructed to continue to taking them. Patient also instructed to pull stent. Awaiting scripts from pharmacy. Images from the original note were not included. [facility] Office: [phone] Duncan Shelton DO, Rad Burks DO, Gerald Le DO, Kyle Medina DO, Felipe Sandhu MD, Yancy Padgett MD, Sonia Alvarado MD, Kerri [place]za MD, Arron Olson MD, Rebecca Cox MD, Deneen Kaur MD, Nathen Hemphill DO, Lynda Jimenez MD, Everette Wiggins MD, Andrey Shelton DO, Dorita Leigh MD, Dangelo eFrnandez DO, Ciara Sales MD, Elaine Silverman MD, [...] Morris CNP, Yvette Canchola, WAYNE, Gail Greene, WAYEN, Dominguez Nunez PA-C, Mar Sanchez CNP, Cecelia Pearson, KYUNG, Ivy Cortes, WAYNE, Felicita Rm, WAYNE, Pau Viera, WAYNE [facility] IN-PATIENT SERVICE [facility] Progress Note 01/29/2025 9:05 AM Name: Diana Barriga Acct: [id number] Room: [address] [place] [address] Day: 3 Admit Date: 01/26/2025 5:25 PM [...] results for input(s): LABALBU , LABA1C , E3JJDJD , FT4 , TSH , AST , ALT , LDH , GGT , ALKPHOS , BILITOT , BILIDIR , AMMONIA , AMYLASE , LIPASE , LACTATE , CHOL , HDL , CHOLHDLRATIO , TRIG , VLDL , ALV77NK , PHENYTOIN , PHENYF , URICACID , POCGLU in the last 72 hours. Invalid input(s): PROT , K8IEQGZ , LABGGT , LDLCHOLESTEROL ABG:No results found for: POCPH , PHART , PH , POCPCO2 , VIX4LLB , PCO2 , POCPO2 , PO2ART , PO2 , POCHCO3 , YUD3ZLI , HCO3 , NBEA , PBEA , BEART , BE , THGBART , THB , HRG1QCT , AVWX5NRY , T2VEBKKN , O2SAT , FIO2 Lab Results Component [...] from the original note were not included. [facility] Office: [phone] Duncan Shelton DO, Rad Burks DO, Gerald [...] Rogers MD, Johnathon Cerda MD, Makenzie Alberts, CONCRETE MIXER TRUCK DRIVER, [place], CONCRETE MIXER TRUCK DRIVER, Casey Mercer, CONCRETE MIXER TRUCK DRIVER, Galilea Bradshaw, [facility], Ritika Villaseñor, CONCRETE MIXER TRUCK DRIVER, Indu Montoya, CONCRETE MIXER TRUCK DRIVER, Angelica Chaney, CONCRETE MIXER TRUCK DRIVER, Vivian Kahn, CONCRETE MIXER TRUCK DRIVER, Garima Balbuena, PA-C, Kyung Barkley, CONCRETE MIXER TRUCK DRIVER, Hetal Morris, CONCRETE MIXER TRUCK DRIVER, Yvette Canchola, CONCRETE MIXER TRUCK DRIVER, Gail Greene, CONCRETE MIXER TRUCK DRIVER, Dominguez Nunez, PA-C, Mar Sanchez, CONCRETE MIXER TRUCK DRIVER, Cecelia Pearson, FINANCIAL SYSTEMS MANAGER, Ivy Cortes, CONCRETE MIXER TRUCK DRIVER, Felicita Rm, CONCRETE MIXER TRUCK DRIVER, Pau Viera, CONCRETE MIXER TRUCK DRIVER [facility] IN-PATIENT SERVICE [facility] Progress Note 01/28/2025 1:05 PM Name: Diana Barriga Acct: [id number] Room: 0321/0321-02 Day: 2 Admit Date: 01/26/2025 [...] results for input(s): LABALBU , LABA1C , X1JWKPP , FT4 , TSH , AST , ALT , LDH , GGT , ALKPHOS , BILITOT , BILIDIR , AMMONIA , AMYLASE , LIPASE , LACTATE , CHOL , HDL , CHOLHDLRATIO , TRIG , VLDL , LGV10EB , PHENYTOIN , PHENYF , URICACID , POCGLU in the last 72 hours. Invalid input(s): PROT , O8XLUIQ , LABGGT , LDLCHOLESTEROL ABG:No results found for: POCPH , PHART , PH , POCPCO2 , YBC0DYF , PCO2 , POCPO2 , PO2ART , PO2 , POCHCO3 , MWT5LJV , HCO3 , NBEA , PBEA , BEART , BE , THGBART , THB , EXI5KXD , RDFF6YSY , O3NZSWTP , O2SAT , FIO2 Lab Results Component [...] 0.9 0.7 Recent Labs 01/26/25 17[address] [facility]* PHUR 6.5 WBCUA 20 TO 50 RBCUA [...] mass loss Fluid Accumulation: Unable to assess Publishing Director Strength: Not Performed Nutrition Assessment: 34 y.o.F [...] Measures: Height: 167.6 cm (5' 5.98 ) Pearson Body Weight (IBW): 130 lbs (59 kg) Current Body Weight: 81.6 kg (179 lb 14.3 oz), 138.4 % IBW. Current BMI (kg/m2): 29 Estimated Daily Nutrient Needs: Energy Requirements Based On: Formula Weight Used for Energy Requirements: Current Energy (kcal/day): 0615-4377 kcals/day Weight Used for Protein Requirements: Current Protein (g/day): 82-92 g/day Method Used for Fluid Requirements: 1 ml/kcal Fluid (ml/day): 1547-8655 ml/day Nutrition Diagnosis: Inadequate oral intake related [...] determine Anastasiya Medel RDN, LD, MS Contact: [phone] Images from the original note were not included. [facility] Office: [phone] Duncan Shelton DO, Rad Burks DO, Gerald [...] Rogers MD, Johnathon Cerda MD, Makenzie Alberts, CONCRETE MIXER TRUCK DRIVER, [place], CONCRETE MIXER TRUCK DRIVER, Casey Mercer, CONCRETE MIXER TRUCK DRIVER, Galilea Bradshaw, [facility], Ritika Villaseñor, CONCRETE MIXER TRUCK DRIVER, Indu Montoya, CONCRETE MIXER TRUCK DRIVER, Angelica Chaney, CONCRETE MIXER TRUCK DRIVER, Vivian Kahn, CONCRETE MIXER TRUCK DRIVER, Garima Balbuena, PA-C, Kyung Barkley, CONCRETE MIXER TRUCK DRIVER, Hetal Morris, CONCRETE MIXER TRUCK DRIVER, Yvette Canchola, CONCRETE MIXER TRUCK DRIVER, Gail Greene, CONCRETE MIXER TRUCK DRIVER, Dominguez Nunez, PA-C, Mar Sanchez, CONCRETE MIXER TRUCK DRIVER, Cecelia Pearson, FINANCIAL SYSTEMS MANAGER, Ivy Cortes, CONCRETE MIXER TRUCK DRIVER, Felicita Rm, CONCRETE MIXER TRUCK DRIVER, Pau Viera, CONCRETE MIXER TRUCK DRIVER [facility] IN-PATIENT SERVICE [facility] Progress Note 01/27/2025 9:31 AM Name: Diana Barriga Acct: [id number] Room: 0321/0321-02 Day: 1 Admit Date: 01/26/2025 [...] results for input(s): LABALBU , LABA1C , R9NDVUF , FT4 , TSH , AST , ALT , LDH , GGT , ALKPHOS , BILITOT , BILIDIR , AMMONIA , AMYLASE , LIPASE , LACTATE , CHOL , HDL , CHOLHDLRATIO , TRIG , VLDL , XUD37AM , PHENYTOIN , PHENYF , URICACID , POCGLU in the last 72 hours. Invalid input(s): PROT , N1ZDYYF , LABGGT , LDLCHOLESTEROL ABG:No results found for: POCPH , PHART , PH , POCPCO2 , YNW7ARX , PCO2 , POCPO2 , PO2ART , PO2 , POCHCO3 , GEM1SDC , HCO3 , NBEA , PBEA , BEART , BE , THGBART , THB , MPG3SHM , ILYD1JOW , Z6TKNVQI , O2SAT , FIO2 Lab Results Component [...] CREATININE 0.9 Recent Labs 01/26/25 [address] [facility]* PHUR 6.5 WBCUA 20 TO 50 RBCUA [...] PM EDT documented in this encounter [facility] 01-29-2025 Hospital course Narrative Images from the original note were not included. [facility] Office: [phone] Duncan Shelton DO, Rad Burks DO, Gerald [...] Rogers MD, Johnathon Cerda MD, Makenzie Alberts, CONCRETE MIXER TRUCK DRIVER, [place], CONCRETE MIXER TRUCK DRIVER, Casey Mercer, CONCRETE MIXER TRUCK DRIVER, Galilea Bradshaw, [facility], Ritika Villaseñor, CONCRETE MIXER TRUCK DRIVER, Indu Montoya, CONCRETE MIXER TRUCK DRIVER, Angelica Chaney, CONCRETE MIXER TRUCK DRIVER, Vivian Kahn, CONCRETE MIXER TRUCK DRIVER, Garima Balbuena, PAAilynC, Kyung Barkley, CONCRETE MIXER TRUCK DRIVER, Hetal Morris, CONCRETE MIXER TRUCK DRIVER, Yvette Canchola, CONCRETE MIXER TRUCK DRIVER, Gail Greene, CONCRETE MIXER TRUCK DRIVER, Dominguez Nunez PAAilynC, Mar Sanchez, CONCRETE MIXER TRUCK DRIVER, Cecelia Pearson, [facility], Ivy Cortes, CONCRETE MIXER TRUCK DRIVER, Felicita Rm, CONCRETE MIXER TRUCK DRIVER, Pau Viera, CONCRETE MIXER TRUCK DRIVER [facility] IN-PATIENT SERVICE [facility] Discharge Summary Patient ID: Diana Barriga : 1990 ACCOUNT: [id number] Patient's PCP: Domingo Snyder MD Admit Date: [...] Physician Follow Up: Domingo Snyder MD [address] [facility] [address] Schedule an appointment as soon as possible for a visit in 1 week(s) Adonis Guerra MD [address] [facility] [place] [address] Follow up Renal US in 6 [...] narcotics Please call attending physician or hospital digital production operator with questions Call or Present to [...] this patient's care. documented in this encounter [facility] 01-28-2025 Hospital Discharge instructions Glen Desai MD [...] narcotics Please call attending physician or hospital digital production operator with questions Call or Present to [...] call with questions. documented in this encounter [facility] 01-22-2025 History of Present illness Narrative CLINICAL [...] paid by clover documented in this encounter [facility] 01-22-2025 Hospital course Narrative Images from the original note were not included. [facility] Office: [phone] Duncan Shelton DO, Rad Burks DO, Gerald [...] Barkley CNP, Hetal Morris CNP, Yvette Canchola, CONCRETE MIXER TRUCK DRIVER, Gail Greene, CONCRETE MIXER TRUCK DRIVER, Dominguez Nunez PA-C, Mar Sanchez CNP, Cecelia Pearson, KYUNG, Ivy Cortes CNP, Felicita Rm, WAYNE, Pau Viera, WAYNE [facility] IN-PATIENT SERVICE [facility] Discharge Summary Patient ID: Diana Barriga : 1990 ACCOUNT: [id number] Patient's PCP: Domingo Snyder MD Admit Date: [...] who was transferred to our hospital from [facility] for evaluation of flank pain. CT [...] Home Physician Follow Up: Adonis Guerra MD [address] [place] [address] Schedule an appointment as soon as [...] Your Medications These medications were sent to [facility]OS[facility] MIGUEL - [place], [place] - [address] [facility] - P [phone] - F [phone] [address] [facility] [address] hyoscyamine 0.125 MG tablet oxyCODONE 5 MG [...] patient's care. v documented in this encounter [facility] 01-22-2025 Hospital Discharge instructions Zia Covington MD [...] narcotics Please call attending physician or hospital digital production operator with questions Call or Present to ED if fever (> 101F), intractable nausea vomiting or pain. Rx e-prescribed Pt should follow up with Dr. Guerra, in 1-2 weeks, for definitive stone treatment, call to confirm appointment documented in this encounter [facility] 04-10-2024 Discharge summary Note Date/Time April 10, 2024 7:10am [facility] [address] [place] [address] Discharge Summary Signed Patient: Diana Barriga MR#: [id number] : 1990 Acct:[id number] Age/Sex: 33 / F Adm Date: 4 Loc: Room: [address] [place] [address]: Arnulfo Aviles MD Copies to: [...] Dr. Fenton but wants to switch to [facility]. Along with this patient is in marriage counseling with her current and that today's session was not good. Patient stated she needs to be home to take care of her kids, the custody [place], and her marriage. Patient upset because she missed her son's play and has plans to take kids to [place] tomorrow. Patient denies any suicidal ideation denies hallucinations denies racing thoughts. Patient reports that there is no changes in her appetite or sleep. Patient reports that she feels fine. She has tried a lot of medications in the past and believes none of them have worked. He is going to [facility] for psych therapy. He wants to [...] She has an appointment coming up with [place] counseling. She deniedrecent suicide attempts or self [...] Diet: Regular Instructions: Bipolar Disorder (DC), [facility] DC Instructions, Know your Meds [...] signed by Arnulfo Aviles MD> 04/10/24 0929 [facility] Work Phone: 1(290) 521-141706-22-2024 History and physical note Author Arnulfo ornelas [facility] April 09, 2024 9:09am Note Date/Time April 09, 2024 8:43 am [facility] [address] [place] [address] Psychiatry H&P Signed Patient: Diana Barriga MR#: [id number] : 1990 Acct:[id number] Age/Sex: 33 / F Adm Date: 4 Loc: Room: [address] [place] [address] Type: ADM IN Attending Dr: Arnulfo Aviles [...] Dr. Fenton but wants to switch to [facility]. Along with this patient is in marriage counseling with her current and that today's session was not good. Patient stated she needs to be home to take care of her kids, the custody [place], and her marriage. Patient upset because she missed her son's play and has plans to take kids to [place] tomorrow. Patient denies any suicidal ideation denies hallucinations denies racing thoughts. Patient reports that there is no changes in her appetite or sleep. Patient reports that she feels fine. She has tried a lot of medications in the past and believes none of them have worked. He is going to [facility] for psych therapy. He wants to try therapy before any medications. 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 Documented By: Arnulfo Aviles MD 4 0834 Signed By: <Electronically signed by Arnulfo Aviles MD> 04/09/24 0909 [facility] Work Phone: 1(117) 312-659806-02-2023 Hospital Discharge instructions Follow Up Care 03/20/2023 11:51:58 With:IDALMIS BORDEN, Nona Turner, URL Address: [address] [place], [place] [id number]- When: Unknown [facility] 06-02-2023 Hospital Discharge instructions Patient Education [...] include: ?8 oz (237 mL) of milk, aaaxkpu-sliqqgtvhcye-yxput milk, and calcium- fortifiedfruit juice. Calcium-fortified means [...] ?Spinach (cooked), rhubarb, beets, sweet potatoes, and Welsh chard. ?Peanuts. ?Potato chips, syriac fries, and baked potatoes with skin on. ?Nuts and nut products. ?Chocolate. If you regularly take a diuretic medicine, make sure to eat at least 1 or 2 servings of fruits or vegetables that are high in potassium each day. These include: ?Avocado. ?Banana. ?[place], prune, carrot, or tomato juice. ?Baked potato. [...] magnesium, fish oil, or vitamin B6. Take azas-tsl-vwsbpzl and prescription medicines only as told by [...] Casseroles. Pizza. Lasagna. Frozen meals. Potato chips. Guinean fries. The items listed above may [...] provider. Document Revised: 06/16/2022 Document Reviewed: 06/16/2022 [employer] Patient Education 2022 [employer] Follow Up Care 12/26/2022 08:46:46 With:IDALMIS BORDEN, Nona Turner, URL Address: [facility] [address], [place] [address]- When: Unknown [facility] 01-20-2023 NoteOPERATIVE NOTE OPERATION DATE: 11/07/2022 PROCEDURE: Mery endometrial ablation with LEEP. PREOPERATIVE DIAGNOSIS: Cervical dysplasia, menorrhagia. POSTOPERATIVE DIAGNOSIS: Cervical dysplasia, menorrhagia. ANESTHESIA: General. SURGEON: Jefferson Gibbs D.O. SERVICE MANAGER: None. BLOOD LOSS: 50 mL. [...] taken to [facility] stable condition[facility] Follow Up Care 09/25/2022 13:54:04 With:IDALMIS BORDEN, Nona Turner, DANYA Address: [address] [place], [place] [id number]- When: Unknown [facility] 12-01-2022 NoteOPERATIVE NOTE OPERATION DATE: 09/18/2022 [...] usual fashion. I started by passing a 22-Guinean Olympus cystoscope per urethra and into the [...] removed. She was then transferred to a gurthayer and wheeled to PACU in stable condition.[id number] NoteHNO ID: [id number] Author: Daniel Montgomery APRN.[facility] Service: ? Author Type: Nurse Practitioner Type: Progress Notes Filed: 09/04/2022 7:46 AM Note Text: The patient did not show up for this appointment. The patient did not show up for this appointment.[id number] History of Present illness Narrative* Daniel Montgomery APRN.CONCRETE MIXER TRUCK DRIVER - 09/04/2022 7:40 AM EST The patient did not show up for this appointment. The patient did not show up for this appointment. [facility] NotePROCEDURE: XR ANKLE LT MIN 3 V COMPARISON: None. HISTORY: Sprain of calcaneofibular ligament FINDINGS: BONES:No fracture, acute abnormality, or significant arthropathy. SOFT TISSUES:Extensive lateral soft tissue swelling EFFUSION:None visible. OTHER: Negative. IMPRESSION: Lateral soft tissue swelling. No acute fracture Electronically authenticated by: GLEN PEREZ Date: 2022-07-03 07:09[facility] Future Appointments Appointment Date:03/20/2023 10:15:00 AM Scheduled Provider:Nona RAYGOZA MD Location:[facility] Appointment Type:URO Office Visit [facility] evaluation + Plan note Future Appointments Appointment Date:12/04/2023 09:45:00 AM Scheduled Provider:Nona RAYGOZA MD Location:[facility] Appointment Type:URO Office Visit Diagnostic Tests Pending * Electrolyte Panel 03/20/23 [facility] evaluation note* Diagnosis NO SHOW- Primary documented in this encounter [facility]* Diagnosis Onset Date Resolution Status Bipolar disorder acute [facility] Work Phone: evaluation noteNo assessment information available [facility] Work Phone: evaluation note* Diagnosis VUR (vesicoureteric reflux) Vesicoureteral reflux, unspecified or without reflux nephropathy [facility]* Diagnosis Left ureteral calculus- Primary Calculus of ureter Renal calculus, left Calculus of kidney Acute postoperative pain Other acute postoperative pain Acute cystitis without hematuria Acute cystitis Acute postoperative pain Other acute postoperative pain Urinary tract obstruction by kidney stone Calculus of kidney documented in [facility]* Diagnosis Hydronephrosis with renal calculous obstruction- Primary Bilateral ureteral calculi Acute postoperative pain Other acute postoperative pain Left ureteral calculus Calculus of ureter S/P cystoscopy with ureteral stent placement Pyelonephritis Pyelonephritis, unspecified documented in this encounter [facility] [facility]* Diagnosis Well woman exam with routine gynecological exam Routine gynecological examination H/O: hysterectomy Acquired absence of both cervix and uterus Night sweats Generalized hyperhidrosis documented [facility]* Diagnosis Hordeolum externum of right upper eyelid- Primary Neoplasm of unspecified behavior of bone, soft tissue, and skin documented in this encounter [facility]* Diagnosis Encounter for removal of sutures- Primary documented in this encounter [facility]* Diagnosis Neoplasm of unspecified behavior of bone, soft tissue, and skin- Primary documented in this encounter [facility]* Diagnosis Encounter for removal of sutures- Primary documented in this encounter [facility] HealthcareHospital course Narrative No data available for this section [facility] progress note No data available for this section [facility] reason for referral (narrative)No reason for referral [facility] Work Phone: Reason for visit Narrative* Imaging (Routine) - Open Specialty Diagnoses / Procedures Referred By Luis grigsby Referred To Contact Radiology Diagnoses VUR (vesicoureteric reflux) Procedures FL VOIDING URETHROCYSTOGRAM S&I Adonis Guerra MD [address] [place] [address] Phone: tel: fax: Referral ID Status Reason Start Date Expiration Date Visits Re quested Visits Authorized [id number] Open 01/09/2025 01/09/2026 1 1 [employer] [facility] for visit Narrative* Auth/Cert Specialty Diagnoses / Procedures Referred By Luis grigsby Referred To Contact Diagnoses Urinary tract obstruction by kidney stone UTI (urinary tract infection) Ureteral calculi Luis Felipe Delacruz MD [address] [facility] [place] [address] Phone: tel: fax: [employer] [address] [place] [address] Referral ID Status Reason Start Date Expiration Date Visits Re quested Visits Authorized [id number] [facility] [facility] Company[facility] for visit Narrative* Auth/Cert Specialty Diagnoses / Procedures Referred By Contac t Referred To Contact Diagnoses Hydronephrosis, left Luis Felipe Delacruz MD [address] [place] [address] Phone: tel: fax: [employer] [address] [place] [address] Referral ID Status Reason Start Date Expiration Date Visits Re quested Visits Authorized [id number] 1 1 [employer] Summary Purpose Family History Relationship Condition Age [...] or prosecute any alcohol or drug abuse patient.[facility] Reason for Visit (unrecogniz ed section and content) Reason Onset Date Comments No Show 09/04/2022 No show Reason Comments Gynecologic Exam Reason Comments Suspicious Skin Lesion Reason Comments Suture / Staple Removal Care Teams (unrecognized sec tion and content) Teleprinter Relationship Specialty Start Date End Date Domingo Snyder MD [address] [place] [address] Referring Family Medicine 09/01/22 Team Status: Active [...] December 02, 2024 End: December 02, 2024 Teleprinter Relationship Specialty Start Date End Date Domingo Snyder MD [address] [place] [address] PCP - General Family Medicine 01/05/25 Teleprinter Relationship Specialty Start Date End Date Domingo Snyder MD [address] [place] [address] PCP - General Family Medicine 01/05/25 Teleprinter Relationship Specialty Start Date End Date Domingo Snyder MD [address] [place] [id number] PCP - General Family Medicine 01/05/25 Team Status: Inactive Member Role Status Dates Javi Tanner PA-C Attending Provider Active Start: January 21, 2025 End: January 21, 2025 Teleprinter Relationship Specialty Start Date End Date Domingo Snyder MD [address] [place] [address] PCP - General Family Medicine 01/05/25 Teleprinter Relationship Specialty Start Date End Date Domingo Snyder MD [address] [place] [address] PCP - General Family Medicine 04/13/23 Teleprinter Relationship Specialty Start Date End Date Domingo Snyder MD [address] [place] [facility] [address] PCP - General Family Medicine 04/13/23 Teleprinter Relationship Specialty Start Date End Date Domingo Snyder MD [address] [place] [facility] [address] PCP - General Family Medicine 04/13/23 Teleprinter Relationship Specialty Start Date End Date Domingo Snyder MD [address] [place] [facility] [address] PCP - General Family Medicine 04/13/23 Teleprinter Relationship Specialty Start Date End Date Domingo Snyder MD [address] [place] [address] PCP - General Family Medicine 04/13/23 Team Status: Inactive Member Role Status Dates Vj Fraire DO Attending Provider Active Start: May 05, 2025 End: May 05, 2025 Teleprinter Relationship Specialty Start Date End Date Domingo Snyder MD [address] [place] [address] PCP - General Family Medicine 04/13/23 Teleprinter Relationship Specialty Start Date End Date Domingo Snyder MD [address] [place] [address] PCP - General Family Medicine 04/13/23 INFORMATION SOURCE (unrecogn ized section and content) DATE CREATED AUTHOR 09/06/2022 [facility] DATE CREATED AUTHOR AUTHOR'S ORGANIZ ATION 02/19/2023 [facility] DATE CREATED AUTHOR AUTHOR'S ORGANIZ ATION 12/06/2023 [facility] DATE CREATED AUTHOR AUTHOR'S ORGANIZ ATION 10/05/2024 [facility] DATE CREATED AUTHOR AUTHOR'S ORGANIZ ATION 01/16/2025 [facility] DATE CREATED AUTHOR AUTHOR'S ORGANIZ ATION 02/03/2025 [facility] DATE CREATED AUTHOR AUTHOR'S ORGANIZ ATION 04/05/2025 [facility] DATE CREATED AUTHOR AUTHOR'S ORGANIZ ATION 05/09/2025 [facility] DATE CREATED AUTHOR AUTHOR'S ORGANIZ ATION 05/16/2025 [facility] EPIC Goals (unrecognized section and [...] mL IV syringe (COMPLETED) 2,000 mg, IntraVENous, SOLDERER ELECTRONIC TO O.R., On 01/22/25 at 0930, For [...] Tamy [employer] - Reason: Unreviewed Transfer Orders)1027 ([facility] Unhold - Provider: Anastasiya Coates RN)1900 (Due - Provider: Sudeep Ordonez [facility]) enoxaparin (LOVENOX) injection 40 mg 40 mg, [...] Comment: Pt. educated on importance and intent)0928 ([facility] Hold - Provider: [facility] [employer] - Reason: Unreviewed Transfer Orders)1027 ([facility] Unhold - Provider: Anastasiya Coates RN) ibuprofen [...] (Given - Provid er: Anastasiya Coates RN)927 ([facility] Hold - Provider: Tamy [employer]ohold - Reason: Unreviewed Transfer Orders)1027 ([facility] Unhold - Provider: Anastasiya Coates RN) Continuous Medication Order 01/20/2025 01/21/2025 01/22/2025 0.9 % sodium chloride infusion (CANCELED) IntraVENous, at 150 mL/hr, CONTINUOUS, Starting on 01/22/25 at 0015 0002 (New Bag - Prov ider: Aundrea Beltre RN)0557 (New Bag - Provider: Aundrea Beltre, FELA)0928 ([facility] Hold - Provider: [facility] [employer] - Reason: Unreviewed Transfer Orders)1027 ([facility] Unhold - Provider: Anastasiya Coates RN) PRN Medication Order 01/20/2025 01/21/2025 01/22/2025 acetaminophen (TYLENOL) suppository 650 mg(Linked Group 1) 650 mg, Rectal, EVERY 6 HOURS PRN, Starting on 01/21/25 at 2346, Until Discontinued, Pain Mild (1-3), allowed for higher pain score per patient request, Fever, For temp greater than 100.4 F (38 C), Administer if oral route cannot be used. 09 ([facility] Hold - Pro vider: [facility] [employer] - Reason: Unreviewed Transfer Orders)102 ([facility] Unhold - Provider: Anastasiya Coates RN) acetaminophen (TYLENOL) tablet 650 mg(Linked Group 1) 650 mg, Oral, EVERY 6 HOURS PRN, Starting on Sat 4/25 at 2346, Until Discontinued, Pain Mild (1-3), allowed for higher pain score per patient request, Fever, For temp greater than 100.4 F (38 C), Maximum dose of acetaminophen is 4000 mg from all sources in 24 hours. 927 ([facility] Hold - Pro vider: [facility] [employer] - Reason: Unreviewed Transfer Orders)102 ([facility] Unhold - Provider: Anastasiya Coates RN) magnesium [...] Patients with CrCl less than 30ml/min 927 ([facility] Hold - Pro vider: [facility] [employer] - Reason: Unreviewed Transfer Orders)1027 ([facility] Unhold - Provider: Anastasiya Coates RN) morphine [...] Anastasiya Coates RN)0928 ([facility] Hold - Provider: [facility] [employer] - Reason: Unreviewed Transfer Orders)1027 ([facility] [...] Anastasiya Coates RN)0928 ([facility] Hold - Provider: [facility] [employer] - Reason: Unreviewed Transfer Orders)1027 ([facility] Unhold - Provider: Anastasiya Coates RN) ondansetron (ZOFRAN) injection 4 mg(Linked Group 3) 4 mg, IntraVENous, EVERY 6 HOURS PRN, Starting on 4/5/25 at 2346, Until Discontinued, Nausea, Vomiting, Administer if oral route cannot be used. 0001 (Given - Provid er: Aundrea Beltre RN)0554 (Given - Provider: Aundrea Beltre RN)0928 ([facility] Hold - Provider: [facility] [employer] - Reason: Unreviewed Transfer Orders)1027 ([facility] Unhold - Provider: Anastasiya Coates RN) ondansetron (ZOFRAN-ODT) disintegrating tablet 4 mg(Linked Group 3) 4 mg, Oral, EVERY 8 HOURS PRN, Starting on 4/5/25 at 2346, Until Discontinued, Nausea, Vomiting 0001 (See Alternativ e - Provider: Aundrea Beltre RN)0554 (See Alternative - Provider: Aundrea Beltre RN)0928 ([facility] Hold - Provider: [facility] [employer] - Reason: Unreviewed Transfer Orders)1027 ([facility] Unhold - Provider: Anastasiya Coates RN) oxyCODONE (ROXICODONE) immediate release tablet 2.5 mg(Linked Group 4) 2.5 mg, Oral, EVERY 4 HOURS PRN, Starting on 4/5/25 at 2346, Until Discontinued, Pain Moderate (4-6), allowed for higher pain score per patient request 0000 (See Alternativ e - Provider: Aundrea Beltre RN)0928 ([facility] Hold - Provider: [facility] [employer] - Reason: Unreviewed Transfer Orders)1027 ([facility] Unhold - Provider: Anastasiya Coates RN)1053 (See Alternative - Provider: Anastasiya Coates RN) oxyCODONE (ROXICODONE) immediate release tablet 5 mg(Linked Group 4) 5 mg, Oral, EVERY 4 HOURS PRN, Starting on Sat 4//25 at 2346, Until Discontinued, Pain Severe (7-10) 0000 (Given - Provid er: Aundrea Beltre RN)0928 ([facility] Hold - Provider: [facility] [employer] - Reason: Unreviewed Transfer Orders)1027 ([facility] Unhold - Provider: Anastasiya Coates RN)1053 (Given - Provider: Anastasiya Coates RN) polyethylene glycol (GLYCOLAX) packet 17 g 17 g, Oral, DAILY PRN, Starting on Sat 4/25 at 2346, Until Discontinued, Constipation, First line therapy for constipation 0928 ([facility] Hold - Pro vider: [facility] [employer] - Reason: Unreviewed Transfer Orders)1027 ([facility] Unhold - Provider: Anastasiya Coates RN) potassium [...] dilute if GI adverse effects occur. 927 ([facility] Hold - Pro vider: [facility] [employer] - Reason: Unreviewed Transfer Orders)102 ([facility] Unhold - Provider: Anastasiya Coates RN) potassium [...] half and each half swallowed separately. 927 ([facility] Hold - Pro vider: [facility] [employer] - Reason: Unreviewed Transfer Orders)1026 ([facility] Unhold - Provider: Anastasiya Coates RN) potassium [...] with CrCl less than 30 mL/min. 927 ([facility] Hold - Pro vider: [facility] [employer] - Reason: Unreviewed Transfer Orders)1027 ([facility] Unhold - Provider: Anastasiya Coates RN) prochlorperazine [...] Gretchen Tony)0800 (Rate/Dose Change - Provider: Gretchen Toyn)0802 (Rate/Dose Change - Provider: Gretchen Tony)1443 (Stopped [...] Balwinder Ashton RN)1440 (DEC Hold - Provider: [facility] [employer] - Reason: Unreviewed Transfer Orders)1744 (DEC [...] Balwinder Ashton RN)1440 (DEC Hold - Provider: [facility] [employer] - Reason: Unreviewed Transfer Orders)1744 ([facility] Unhold - Provider: Balwinder Ashton RN) 1203 (Given - Provider: Maryam Avila) ondansetron (ZOFRAN-ODT) disintegrating tablet 4 mg(Linked Group 1) 4 mg, Oral, EVERY 8 HOURS PRN, Starting on Julia 01/26/25 at 1726, Until Discontinued, Nausea, Vomiting 0806 (See Alternative - Provider: Balwinder Ashton RN)1440 ([facility] Hold - Provider: [facility] [employer] - Reason: Unreviewed Transfer Orders)1744 (DEC [...] or Central Line = 20 mL/lumen 1440 ([facility] Hold - Provider: Tamy [employer] - Reason: Unreviewed Transfer Orders)1744 ([facility] Unhold - Provider: Balwinder Ashton RN) Linked [...] BE BASED ON THE PRIMARY CLINICAL RECORDS. [employer] provides no warranty or guarantee of the accuracy or completeness of information in this document.
--- NOTE | 2025-07-08 17:10 | ECG_ITS ---
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 Measurements Intervals [place] Rate: 87 P: 51 CT: 154 QRS: 75 QRSD: 86 T: 58 QT: 356 QTc: 400 Interpretive Statements 1100 Sinus rhythm 4068 Nonspecific [place] abnormality 9130 borderline ECG Compared to ECG 04/08/2024 14:53:16 No significant changes Electronically Signed On 07-09-2025 13:53:05 EDT by BENEDICTO TORRES M.D.
--- NOTE | 2025-07-08 17:11 | CT_ITS ---
The [address] [address] Patient Name: CORI BARRIGA MRN: [id number] date: 1990 Sex: F Assigned Patient Location: ER Current Patient Location: ER Accession/Order Number: [id number] Exam Date: 07/08/2025 18:10 Report Date: 07/08/2025 18:38 At the request of: MESHA SAM MD Procedure: CT abdomen pelvis w con CT ABDOMEN AND PELVIS WITH INTRAVENOUS CONTRAST: CLINICAL HISTORY: Mid abdominal pain COMPARISON: 05/05/2025 TECHNIQUE: Spiral images were obtained through the abdomen and pelvis following the administration of intravenous contrast. This CT exam was performed using one or more following dose reduction techniques: Automated exposure control, adjustment of the mA and/or kV according to patient size, or use of iterative reconstruction technique. FINDINGS: Lung Bases: [Minimal hypoventilatory changes.] Organs:Cholecystectomy. Otherwise the liver, spleen, adrenals pancreas unremarkable. Areas of cortical thinning and scarring left kidney no hydronephrosis. Bilateral nephrolithiasis..[ GI: Mild retained stool. No bowel obstruction. Colonic diverticulosis. Appendix unremarkable.[ Pelvis:[4.1 x 3.8 cm right adnexal cyst. Hysterectomy. Bladder is unremarkable.] Peritoneum/Retroperitoneum:No free air or free fluid. No pathologic adenopathy. Aorta normal caliber.[ Abd wall/Bones:Facet arthropathy lower lumbar spine. No suspicious osseous lesion. Tiny fat-containing mammogram.[ CT/CT abdomen pelvis w con IMPRESSION: Negative acute inflammatory process or bowel obstruction. Bilateral nonobstructive nephrolithiasis. No hydronephrosis. Right adnexal cyst 4.1 cm size likely physiologic. Impression dictated by: Jaime Mcintyre M.D. 07/08/2025 6:38 PM Dictation Location: [place] [address] Electronically authenticated by: [id number] Y Date: 07/08/2025 18:38
--- NOTE | 2025-07-08 17:16 | ED.GENADUL1 ---
HPI HPI - General Adult General Chief complaint: Nausea/Vomiting/Diarrhea Stated complaint: nausea/vomiting Time Seen by Provider: 07/08/25 16:56 Source: patient Mode of arrival: walk-in Limitations: no limitations History of Present Illness HPI narrative: 34-year-old female presents to the emergency department for abdominal pain. She has been having this almost every day for a month, particularly after she eats. No vomiting or fever or trauma. Sometimes she feels constipated. She has had a hysterectomy. She has also had some other symptoms including neurologic symptoms and has been referred out to specialists. Related Data Home Medications ?Medication ?Instructions ?Recorded ?Confirmed estradiol 0.05 mg/24 hr weekly 1 patch transdermal .Weekly 05/05/25 05/05/25 transdermal patch meloxicam 15 mg tablet 15 mg PO DAILY 05/05/25 05/05/25 methenamine hippurate 1 gram tablet 1 g PO BID 05/05/25 05/05/25 tizanidine 4 mg tablet 8 mg PO DAILY 05/05/25 05/05/25 Previous Rx's ?Medication ?Instructions ?Recorded phenazopyridine 200 mg tablet 200 mg PO Q8H PRN pain 6 doses #6 10/02/24 (Pyridium) tabs ciprofloxacin HCl 500 mg tablet 500 mg PO BID #10 tabs 05/05/25 (Cipro) ketorolac 10 mg tablet 10 mg PO Q8H PRN pain 5 days #15 05/05/25 tabs promethazine 25 mg tablet 25 mg PO Q6H PRN nausea and 05/05/25 vomiting #20 tabs dicyclomine 10 mg capsule 10 mg PO QID PRN abdominal pain 07/08/25 #20 caps ondansetron 4 mg disintegrating 4 mg PO Q6H PRN nausea and 07/08/25 tablet vomiting #20 tabs Allergies Allergy/AdvReac Type Severity Reaction Status Date / Time No Known Drug Allergies Allergy Verified 07/08/25 17:04 Opioid HPI Opioid Management Most Recent Opioid Data: Last Pain Scale 7 Today, 18:31 Last MAR Pain Assessment Today, 18:31 Ur Phencyclidine Scrn, (NEGATIVE) Negative 04/08/24, 15:00 Review of Systems ROS Narrative A ten point review of systems is negative except as noted above. [facility] Medical History (Updated 07/08/25 @ 18:55 by Nawaf Soto MD) Anxiety and depression ?F41.9 - Anxiety disorder, unspecified (ICD-10) ?F32.A - Depression, unspecified (ICD-10) Kidney stones ?N20.0 - Calculus of kidney (ICD-10) Bipolar disorder ?F31.9 - Bipolar disorder, unspecified (ICD-10) Kidney stones ?N20.0 - Calculus of kidney (ICD-10) Surgical History (Updated 12/02/24 @ 17:36 by Tamiko Taylor) H/O: hysterectomy ?Z90.710 - Acquired absence of both cervix and uterus (ICD-10) History of ultrasound guided needle biopsy ?Z98.890 - Other specified postprocedural states (ICD-10) H/O local excision of skin lesion ?Z98.890 - Other specified postprocedural states (ICD-10) S/P extracorporeal shock wave therapy (03/2023) ?Z98.890 - Other specified postprocedural states (ICD-10) History of wisdom tooth extraction ?K08.409 - Partial loss of teeth, unspecified cause, unspecified class (ICD-10) H/O LEEP ?Z98.890 - Other specified postprocedural states (ICD-10) History of endometrial ablation ?Z98.890 - Other specified postprocedural states (ICD-10) S/P cystoscopy ?Z98.890 - Other specified postprocedural states (ICD-10) S/P ureteral stent placement ?Z96.0 - Presence of urogenital implants (ICD-10) H/O ureteroscopy ?Z98.890 - Other specified postprocedural states (ICD-10) History of cholecystectomy ?Z90.49 - Acquired absence of other specified parts of digestive tract (ICD-10) Family History Other Family history of hypertension Social History Within the past year, how often did you have a drink containing alcohol: monthly or less Smoking status: Never smoker Non-prescribed substance use: denies use 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 General: The patient appears well and in no apparent distress. Patient is resting comfortably on cart. Skin: Warm, dry, no pallor noted. There is no rash noted. Head: Normocephalic, atraumatic Eye: Normal conjunctiva, no drainage Ears, Nose, Mouth, and Throat: oral mucosa is moist. Nares patent. Cardiovascular: Regular Rate and Rhythm Respiratory: Patient is in no distress, no accessory muscle use, lungs are clear to auscultation, no wheezing, rales or rhonchi Back: non-tender GI: Mild diffuse tenderness without distention or mass Musculoskeletal: The patient has no evidence of calf tenderness, no pitting edema, symmetrical pulses noted bilaterally Neurological: A&O, normal speech Psychiatric: Cooperative, tearful Constitutional Vital Signs, click to edit/add: Last Vital Signs Temp 98 F 07/08/25 16:54 Pulse 80 07/08/25 18:30 Resp 21 H 07/08/25 18:30 BP 134/93 H 07/08/25 17:21 Pulse Ox 97 07/08/25 18:30 O2 Del Method Room Air 07/08/25 16:54 Course Vital Signs Vital signs: Vital Signs Temperature 98 F 07/08/25 16:54 Pulse Rate 96 H 07/08/25 16:54 Respiratory Rate 18 07/08/25 16:54 Blood Pressure 142/100 H 07/08/25 16:54 Pulse Oximetry 95 07/08/25 16:54 Oxygen Delivery Method Room Air 07/08/25 16:54 Temperature 98 F 07/08/25 16:54 Pulse Rate 80 07/08/25 18:30 Respiratory Rate 21 H 07/08/25 18:30 Blood Pressure 134/93 H 07/08/25 17:21 Pulse Oximetry 97 07/08/25 18:30 Oxygen Delivery Method Room Air 07/08/25 16:54 Medical Decision Making MDM Narrative Medical decision making narrative: Extensive workup is negative except for potassium of 2.9. CT scan is negative. Other blood work is normal. She is prescribed Bentyl and Zofran and will follow-up with her PCP. Treatment diagnosis and follow-up were discussed with the patient. Differential Diagnosis Differential Diagnosis: Constipation, UTI, bowel obstruction, pancreatitis, hepatitis, diverticulit Lab Data Lab results reviewed: Yes I reviewed the patient's lab results Labs: Lab Results 07/08/25 07/08/25 Range/Units 17:12 17:31 WBC 5.9 (4.0-11.0) 10^3/uL RBC 4.27 (4.20-5.40) 10^6/uL Hgb 12.5 (12.0-16.0) g/dL Hct 36.0 (36.0-48.0) % MCV 84.3 (81.0-99.0) fL MCH 29.3 (26.7-34.0) pg MCHC 34.7 (29.9-35.2) g/dL RDW 12.1 (11.0-15.0) % Plt Count 295 (150-450) 10^3/uL MPV 9.4 L (9.5-13.5) fL Neut % (Auto) 43.7 (43.0-75.0) % Lymph % (Auto) 46.6 (20.5-60.0) % Swain % (Auto) 8.6 (1.7-12.0) % Eos % (Auto) 0.3 L (0.9-7.0) % Baso % (Auto) 0.8 (0.2-2.0) % Neut # (Auto) 2.6 (1.4-6.5) 10^3/uL Lymph # (Auto) 2.8 (1.2-3.8) 10^3/uL Swain # (Auto) 0.5 (0.3-0.8) 10^3/uL Eos # (Auto) 0.0 (0.0-0.7) 10^3/uL Baso # (Auto) 0.1 (0.0-0.1) 10^3/uL Abs Immat Gran (auto) 0.00 (0.00-0.03) 10^3/uL Imm/Tot Granulo (auto) 0.0 (0.0-0.5) % Sodium 141 (136-145) mmol/L Potassium 2.9 L* (3.5-5.1) mmol/L Chloride 107 (98-107) mmol/L Carbon Dioxide 28.2 (21.0-32.0) mmol/L Anion Gap 8.7 BUN 5.0 L (7.0-18.0) mg/dL Creatinine 0.60 (0.55-1.02) mg/dL Est GFR ( Amer) >60 (>=60 mL/min/1.73m^2) Est GFR (Non-Af Amer) >60 (>=60 mL/min/1.73m^2) BUN/Creatinine Ratio 8.3 Glucose 116 H (74-106) mg/dL Calcium 8.9 (8.5-10.1) mg/dL Total Bilirubin 0.5 (0.2-1.0) mg/dL Direct Bilirubin 0.1 (0.0-0.2) mg/dL AST 32 (15-37) U/L ALT 102 H (14-59) U/L Alkaline Phosphatase 66 (46-116) U/L Total Protein 7.1 (6.4-8.2) g/dL Albumin 3.7 (3.4-5.0) g/dL Globulin 3.4 g/dL Albumin/Globulin Ratio 1.1 Amylase 56 (25-115) U/L Lipase 26.0 (16.0-77.0) U/L Urine Color Lt. yellow (YELLOW) Urine Clarity Sl cloudy (CLEAR) Urine pH 8.0 (5.0-9.0) Ur Specific [place] 1.015 (1.005-1.025) Urine Protein Negative (NEG/TRACE) mg/dL Urine Glucose (UA) Negative (NEGATIVE) mg/dL Urine Ketones Negative (NEGATIVE) mg/dL Urine Occult Blood Negative (NEGATIVE) Urine Nitrite Negative (NEGATIVE) Urine Bilirubin Negative (NEGATIVE) Urine Urobilinogen 0.2 (0.2-1.0) EU/dL Ur Leukocyte Esterase Trace A (NEGATIVE) Urine RBC 0-2 (0-2) #/HPF Urine WBC 2-5 A (NONE SEEN) #/HPF Ur Squamous Epith Cells Few A (NONE/RARE) #/LPF Ur Transition Epith Cell Rare A (NONE SEEN) #/LPF Urine Crystals Seen A (None Seen) #/HPF Amorphous Sediment Moderate Urine Bacteria Trace A (NONE SEEN) #/HPF Urine Casts None seen (NONE SEEN) #/LPF Urine Mucus Small A (NONE SEEN) Ur Culture Indicated? No Imaging Data CT scan - abdomen: Radiologist's impression: ITS Impressions Abdomen/Pelvis CT 07/08/25 17:11 IMPRESSION: Negative acute inflammatory process or bowel obstruction. Bilateral nonobstructive nephrolithiasis. No hydronephrosis. Right adnexal cyst 4.1 cm size likely physiologic. Impression dictated by: Jaime Mcintyre M.D. 07/08/2025 6:38 PM Dictation Location: [place] [address] Electronically authenticated by: [id number] Y Date: 07/08/2025 18:38 ECG Data Attestation: I personally reviewed and interpreted this ECG as follows: (EKG on my interpretation shows sinus rhythm with rate of 87 and no acute change) Discharge Plan Discharge Chief Complaint: Nausea/Vomiting/Diarrhea Clinical Impression: Abdominal pain Patient Disposition: Home, Self-Care Time of Disposition Decision: 18:55 Condition: Good Mode of Transportation: Private Vehicle Prescriptions / Home Meds: New ondansetron 4 mg tablet,disintegrating 4 mg PO Q6H PRN (Reason: nausea and vomiting) Qty: 20 0RF dicyclomine 10 mg capsule 10 mg PO QID PRN (Reason: abdominal pain) Qty: 20 0RF No Action phenazopyridine [Pyridium] 200 mg tablet 200 mg PO Q8H PRN (Reason: pain) Qty: 6 0RF meloxicam 15 mg tablet 15 mg PO DAILY tizanidine 4 mg tablet 8 mg PO DAILY methenamine hippurate 1 gram tablet 1 g PO BID estradiol 0.05 mg/24 hr patch weekly 1 patch transdermal .Weekly ciprofloxacin HCl [Cipro] 500 mg tablet 500 mg PO BID Qty: 10 0RF ketorolac 10 mg tablet 10 mg PO Q8H PRN (Reason: pain) 5 Days Qty: 15 0RF promethazine 25 mg tablet 25 mg PO Q6H PRN (Reason: nausea and vomiting) Qty: 20 0RF Print Language: [place] Leonean Instructions: Abdominal Pain (ED) Referrals: Ignacio Das MD [Primary Care Provider, Family Practice] - 1 week
[2025-07-08 17:28] LABS: Glucose Urine UA NEGATIVE (NEGATIVE)
[2025-07-08 17:36] LABS: Cast Seen? NONE SEEN #/LPF (NONE SEEN); Crystals Seen? Seen #/HPF (None Seen); Urine Culture Indicated NO
[2025-07-08 17:41] LABS: Hematocrit 36.0 % (36.0-48.0); Hemoglobin 12.5 g/dL (12.0-16.0); Immature Granulocytes Abs Auto 0.00 10^3/uL (0.00-0.03); Immature Granulocytes Pct Auto 0.0 % (0.0-0.5); Lymphocytes Absolute Auto 2.8 10^3/uL (1.2-3.8); Mean Corpuscular HGB Conc 34.7 g/dL (29.9-35.2); Mean Corpuscular Hemoglobin 29.3 pg (26.7-34.0); Mean Corpuscular Volume 84.3 fL (81.0-99.0); Platelet Count 295 10^3/uL (150-450); Red Blood Count 4.27 10^6/uL (4.20-5.40); White Blood Count 5.9 10^3/uL (4.0-11.0)
[2025-07-08 18:03] LABS: Anion Gap 8.7; Blood Urea Nitrogen 5.0 mg/dL (7.0-18.0); Calcium 8.9 mg/dL (8.5-10.1); Carbon Dioxide 28.2 mmol/L (21.0-32.0); Chloride 107 mmol/L (98-107); Estimated GFR (African America >60 (>=60 mL/min/1.73m^2); Estimated GFR (Non-African Ame >60 (>=60 mL/min/1.73m^2); Glucose 116 mg/dL (74-106); Sodium 141 mmol/L (136-145)
[2025-07-08 18:04] LABS: Alanine Aminotransferase 102 U/L (14-59); Albumin Globulin Ratio 1.1; Albumin Level 3.7 g/dL (3.4-5.0); Alkaline Phosphatase 66 U/L (46-116); Amylase 56 U/L (25-115); Aspartate Amino Transferase 32 U/L (15-37); Globulin 3.4 g/dL; Lipase 26.0 U/L (16.0-77.0); Total Protein 7.1 g/dL (6.4-8.2)
[2025-07-08 18:21] LABS: Potassium 2.9 mmol/L (3.5-5.1)
[2025-07-08] MEDS: 0.9 % SODIUM CHLORIDE 1,000 ML 1000 ML IV (18:30)
[2025-07-08] MEDS: MORPHINE SULFATE 4 MG/ML VIAL IV (18:31)
[2025-07-08] MEDS: POTASSIUM BICARBONATE/CIT 25 MEQ TABLET EFF 50 MEQ PO (19:09)
== END 2025-07-08 19:20 | disposition home or self-care (01) ==
PROVIDERS: Emergency Provider Emergency Medicine; PCP Family Medicine
DX: R10.9 Unspecified abdominal pain (principal); Z90.710 Acquired absence of both cervix and uterus; Z90.49 Acquired absence of other specified parts of digestive tract
CPT/HCPCS: 36415; 74177; 80048; 80076; 81001; 82150; 83690; 85025; 93005; 96374; 96375; 99285; J2270; J2405; Q9967

== ENCOUNTER 2025-07-11 09:26 | Outpatient (OUT) | payer OTHER, SELFPAY ==
--- NOTE | 2025-07-11 09:28 | MR_ITS ---
The [address] [address] Patient Name: CORI BARRIGA MRN: [id number] date: 1990 Sex: F Assigned Patient Location: MRI Current Patient Location: [facility] Accession/Order Number: [id number] Exam Date: 07/11/2025 10:00 Report Date: 07/11/2025 16:57 At the request of: DOMINGO SNYDER MD Procedure: MR cervical spine wo con EXAMINATION: MRI OF THE CERVICAL SPINE WITHOUT CONTRAST CLINICAL DATA: Cervical Radiculopathy TECHNIQUE: Multiecho imaging was performed in the sagittal and axial plane without contrast FINDINGS: The craniocervical junction is maintained. There is mild reversal normal cervical lordosis may relate to muscle spasm or patient positioning. Minimal intervertebral space narrowing C4-C6. Otherwise, the vertebral body heights, Alignment and bone marrow signal is unremarkable. Cervical cord demonstrates normal signal and morphology. Prevertebral and paraspinal soft tissues are unremarkable. C2-C3: Unremarkable. C3-C4: No significant disease central canal or neural foraminal narrowing identified. There is mild facet arthropathy, left greater than right C4-C5: Minor uncovertebral and facet arthropathy. No central disease central canal or neural from narrowing identified. C5-6: Minimal broad-based disc bulge and vertebral spurring. Mild central canal narrowing. Mild right minimal left foraminal narrowing. C6-C7: Minimal annular bulge. No significant disease central canal or neural foraminal narrowing identified. C7-T1: Mild facet arthropathy. Otherwise no significant disease is canal or neural from narrowing identified. MR/MR cervical spine wo con IMPRESSION: Minimal degenerative changes notably C5-6. No high-grade canal or neural foraminal narrowing identified. Impression dictated by: Jaime Mcintyre M.D. 07/11/2025 4:57 PM Dictation Location: [place] [address] Electronically authenticated by: [id number] Y Date: 07/11/2025 16:57
--- OUTSIDE RECORDS SUMMARY | 2025-07-11 09:32 | XMS_ITS | CCD ---
Author Organization [facility]iniSy[facility] Care Team Providers Care Neonatal Surgeon Name Role Phone Domingo Snyder MD Unavailable DANIEL MONTGOMERY Attending Unavailable DOMINGO SNYDER Referring Unavailable Domingo Snyder Primary Care Physician [phone] [address] ., DR LANE Primary Care Unavailable [...] Unavailable BERNIE ., DR TOLBERT Attending Unavailable CROMWELL, DR GLEN Alford Consulting Unavailable BERNIE ., [...] Unavailable MD Domingo Snyder Primary Care Provider [phone] MD Arnulfo Aviles Admit Provider MD Arnulfo Aviles Attending Provider Domingo Snyder MD Primary Care Provider [phone] Domingo Snyder MD Attending Provider [phone] ADONIS GUERRA Referring Unavailable DOMINGO SNYDER Primary Care Unavailable Domingo Snyder MD Primary Care Provider [phone] Domingo Snyder MD Primary Care Provider [phone] Domingo Snyder MD Attending Provider [phone] Javi Tanner PA-C Attending Provider [phone] DOMINGO SNYDER Primary Care Unavailable JAVI TANNER [...] Unavailable Domingo Snyder MD Primary Care Provider [phone] Vj Fraire DO Attending Provider Domingo Snyder [...] August 16, 2022 11:38am 168 hr estradiol 0.48306 mg/hr transdermal system (14 sources) Estrogen Start: [...] as needed in the evening. 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 Complexity: Intermediate Final length (cm): 4.2 [...] bleeding, or complications. Dressing type: pressure dressing [facility] No Panel InformationOrdered By: Falguni Morris on 05-15-2025 [facility] Urine Cultureon 05-05-2025 Bacteria identified Cx Nom (U) ORGANISM: Citrobacter freundii complex (O:CITFRC) Beccaria Count 75,000 Aerobic ANASTASIA Charge (NMIC56) ---- [...] RESISTANT TO ALL B-LACTAM DRUGS. PERFORMED BY: [facility] [address] [place] [address] PATHOLOGIST FOREST FIRE FIGHTERS DISPATCHER CALLUM ALVA M.D. Normal [facility] Comment on above: Performed By: #### C UU #### [facility] [address] [place] [address] [place] IGP,APTIMA HPV,AGE GDLNon AGE GDLN ACOG TESTING Note . [facility] Comment on above: TESTS RESULT FLAG UN ITS REF RANGE LAB Clinician Provided Cytology Information Source.............Vagina No. of containers..01 ThinPrep Vial Age Algo ACOG Radha... FLAG LEGEND: L-Low Normal,H-High Normal,LL-Alert Low,HH-Alert High <-Panic Low,>-Panic High,A-Abnormal,AA-Critical Abnormal Performed at: 01 =[address] [place] [address] Shereen Caal MD, HPV APTIMA Negative Negative [facility] Comment on above: This nucleic acid am plification test detects fourteen high- risk HPV types (16,18,31,33,35,39,45,51,52,56,58,59,66,68) without differentiation. Performed at: =[address] [id number] Telemarketer: Shereen Caal MD, Phone: [phone] Performed at: [address] [id number] Telemarketer: Shereen Caal MD, Phone: [phone] IGP, APTIMA HPV, RFX 16/18,45 Note Abnormal . [facility] Comment on above: TESTS RESULT FLAG UN ITS REF RANGE LAB DIAGNOSIS: [A] 02 EPITHELIAL CELL ABNORMALITY. ATYPICAL SQUAMOUS CELLS OF UNDETERMINED SIGNIFICANCE (ASC-US). Recommendation: [A] 02 Suggest follow up as clinically appropriate. Specimen adequacy: 02 Satisfactory for evaluation. Performed by: 02 Tamiko Barrow, Embedded Systems Engineer (ASCP) Electronically si... 02 Capri Boston MD, [...] <-Panic Low,>-Panic High,A-Abnormal,AA-Critical Abnormal Performed at: [address] [address] Shereen Caal MD, Interpretation and review of laboratory results Abnormal [facility] SP[facility] No Panel Informationon 04-10 Type of biopsy: [facility] Informed consent: discussed and consent obtained Informed [...] sent for H&E Number of sutures: 2 [facility] [place] Type of biopsy: tangential Informed consent: discussed [...] taken Amount of lidocaine used: 1.0 cc [facility] Outside Recordson 04-03-2025 Outside Records [id number] [facility] Coding Summaryon 03-23-2025 Coding Summary HTMLBase 64 SxvhypjgQOp6xPr+PGhlY WQ+MA9GVJZjM42xaOHxyG 7vA5OUKLkEXfspWVJGLNb TCgWebvXcUM4hlTCfMOFw IC8+LG8dYKZqRifkkTJgz 6H0sJU0X55mje1pRStgdD G1RXXwNqHjvnsuy0ikiWw 6IDcuNmluOyBt QRAwuK93DLA1eA65Mh07a LDclPLyw6xyaUc4VxYtAB YuRUX4fTrpZBwfl9CiLKC fH55jbZEmw9U5 VXVfjVhorZIjQtDrcLY5a M9xTAtaktisx6ebkgyeKz o0jx49hLNbk8F5pGM4X4V sjxZ5TTXdoXNf FsiqaNZYsY6aiymdm8otf ndfReKbYGImWSj7IDt6EJ SfgMmuUnBxUI58MNN8YVQ kijHeT5RoNLTr xEbzZyK3w2R6Do2FV8CSC ioaS8NPALUJXNdzsWR+PC 39yr63E1DmVawlFmx1INI mKXS2wCT5lT2s HLSvVRots4I8rAB6K9Upi sLhse5jd5mrHYVdQXtfU8 1dkFTjd0T3YNQcxMO2IFK rkEppOvFbgA41 Oyc+MMPuiTzjw9StBkyrr 9bns9ejcEa8QklhWHQhfv VvqBpnRVE3l6VsLj3jNPM hvVS0xNJ7xA4a SyQkPmX5ITioQ708MuUol UYoHdqkP05fP3KefQZ+PH OcKay5THHpsClwCO9eI8R hZGRpbmctbGVm mIhlDD1pIYYihtoqPXQwk R3eVRDvW5q1BdUjNeG6FW hlX8XyUYBxjbfwFj46xD0 tZwXyTqZ9NCzx E6KkysJ5KWEonTIcSGmtX SM1O04xt3F1TBUlONQtNJ O8sGQ9zE9cfSrybmzfvOZ mdDsgdmVydGlj HCfiANtdN141JNPyfLreB kNvZGluZyBEYXRlOiAgMD YvMDUvMjAyNTwvdGQ+PHR iPAV3eGjmBTRb rFYtOTisUv0adZpxgEwoF Y6rTQZqdvnqPMBjqM9lGX EeeAZrdJmgMB9eJOCryew xq592AcJpTBD4 BGHpwKHhQ1YdwE1iTbJyF VHnHTEhX9BkhUPjAMbeH3 74XJsoHxF0CGRwrzPsB8M sLWFsaWduOiB0 j9A5Am6Mm4HmbzosO2Rtw QFbBpDuJfwmZAt2M9DxPh wvdHI+VC49RCDsEO48WOk 2ETT0hCosYDah FAVhR3KeeQ0dMhWfABCjN GRkOyc+PHRhYmxlIHdpZH RoPScxMDAlJyBzdHlsZT0 iFz2eOJKnBJMg oOnqfZVrIeUye5xaPDOmF MngOG8gePulZ4PdnVT2EO Bou9w8Jp04V52bH5YznRJ +SNBnsSZ5gCO4 nU9xDkAjZbT0CUibY859Z hDybFExPevlj0slv1yfmA e0NfU1SVJpjlPupScnTMF 4i2VjMu30R93j IHdpZHRoPSIxNSUiIHZhb Czcbx5owH8mBc2+PGNvbC X3lUF1sU4kPmPyAtO1ZUm uI966RgImpZJv Uncje3gjj5jdpMr1GuOaS CWgzwAcnGfrRBU5u2CmSj 79O7RsdZitu6XrLzp8xf2 8sYAwz8F3jJD8 M6OfFRGbaqetxKSqjPpdB Y2fVYWyfpxfHWCmwR1hIZ FlH5o0IrUjFxF3XWbbD4V jwjD7PEXwrUTg YOGydUHZeU1wzmwim2odn pouVtDaVLHzJDu4JNu2FI JlkJhoXlXwHVH0WkL9UJT 8hMMaeM6okXaa zzroaM0hMyz+ACU7bCTie LQUHZ6bIkpejVB+PHRkIH X5sAzzDFnsPFAfgQ3qNMU mS1r2JlDzNjL0 XIciP0IrhvS3YAXvjSNuI LKikSUTaN0yfpyfl4abcd tnOxKhGDOyVGn8OSg9JXS saWduOiBsZWZ0 NlV9PWP3gFVdmD2ghGwlh lgohL3bOwq+QmlydGggRG H8WFl7R2PrTdo4WHYqoKk lJY4pwZDzKKro Hm8bwIlavThbJT7iMLWnr itmk279YoGfv3suGISuuM QqQJneEVY0I40fl4P1EZK vJRZcVSA5rWE9 iF3ufGkiyligpNQzeKyqu dDyhEpxGNfaARqiA582YP FjoUsdQoKkOGb7R8WoIak 1KIUosSwjRA9x gDSbVXenIa9evGydjHkrM I0lNRNcjlquo771VaStl9 keGLWtdQWxDPlqRYI1X46 xq4P7DFZrYZCe MHH0yST2jP5jaUuhalqob GVmdDsgdmVydGljYWwtYW fgG086VHVjrYitPhFwrMd 9S5ShLfm5QHPd oYcfDO5lhKKoFXplLn0qi DrizRysCO5lGEWhwxvlg5 64TgKrb0jdIRGzaJPrKHc jZOG4G81rc9F4 UABlYBAiVFD2gLP4kO5ij GlnbjogbGVmdDsgdmVydG jhLBwxGNsbJ846PTOoiCs nPlBhdGllbnQg OKadTAs8B7DnKwslwPP+P B12LOTqZW60xVJrpPWou4 tptZp2CqBgSJQzUUD7qMb tJNmfh2EjATQi F05vwOExo2Y0EIKynXauc YHbBiDnbKY0wM6rECzdru itt9qhmggxXixyu3jtch9 6iB46Y66qKVjy ZHRoPSIzMCUiIHZhbGlnb h3hhC4jLp1+JBPwrLP0yH Z3nB1zGMWkGlB1QKwqM54 9InRvcCIvPjxj v7ncm6oxaSh8DoF6ASTfk tTdcPlhDTN9k4SqJf43W9 9sIHdpZHRoPSIyMCUiIHZ olTsczx3dzH1o Ii8+VNHazJF1lWB0eE2sO cCrXwD1ZBawW428KxFqcH VsFvzhV48cL2GxoMC+PHR iOro8BPDzxKgk NM0fcEDsKSctMx1kXZX1W qVkNcOtNXzkL9LiTBSgfv fchsghoXR2LVFxOTZzoD4 8Kh2imNeoSTDb qIHNfG2qsvdsy7towikbA eVeQTJjARk7VSh2IRAroU pzOpZoTGB6KuL4FYT3cJO dsS2hsHpjvcsq qN2hG7OxCXGbmsbwZy39c G7sHzOvQuV5ULmsCmu+TU 1TLDreE1NMNEUFRPAPK8V JAU45R6XiGuv1 NCUjmUfiLT3mzRTePGqvA o0mmYduhLgnDM5lUFBsku nkFZDakU4iPRVxnRYqeWp oCN5hGXGbzzes y270XyBvIEB7HPVcdINtA 4PizO3qDiPxUNJpDWFdJ2 PonSItYTylN745RAdlNgO 1IJIwguBzA1Ew ZYKssAclGvT6b2V3Up1bG M5wRk9dVMgdZE20FA22pZ Igi2W7wRZ8A9YzETUrxry cuhfauIJ9GEGs WRUznD67mJTqIJvpOu1kt 8U5i404ZOWrREJhlF22Uf 9hcUkqQDOitMWCaZ9bleh qn0dcupebXnFa GAQlJLj8URt7BHPisJqjO nWqYPJ2VeT1SJP7kNUzrX 1ytXrhjxftbS2qUze+MzM iHZXgowH9X3Kz Rbj4NWRecJflVU9weOLwY ByzFv8xgYgzvPutXF7qEU TgyiqcQWYdiO5rAIOsgPJ taKywLR8bTQOx edavj873QuQxVVD7CVDce XJhW0SkuG7mMbQjXPXeVZ QsE0VoxRQrUQncH689LTh sWyU6ITVshxOw I9XeZUQhwHzxBpC6f5P3Y w8PEK6UFIG6Q4EgLlb6JZ GysJnbHF6ykJNqWLtdVn6 dzFdxhOmgIE5k JUJmjawmWSLpzV2eBQFsj JXkeDxmRC5jPFXqeqksu6 20AvGoKQB2AJPdrKLyO3Z hdN9oAbYhDXJi CYVjS2PxxTShOPtaT542U TokOlL5VBSrxaGoE6LfIU HalAaiKgX5o4B7Zr0FEKw vdGQ+OW47rd54 A2StUxxzZms9XFBfFMV7u OM3mE5kHHTkAPtaj5H5gN C3S9ZblfVtzk1zn3ilRNG nYGzaX21gfSYh t6U4DIAdrVB2NVIpjZltT iUuuJ21Glp+PGNvbGdyb3 DzUcaxw5tgh4odhKe3IbZ wJSIgdmFsaWdu FQA7q8IhDn80G78gBMicW HRoPSIzMCUiIHZhbGlnbj 9pzI3kJb6+HPIojMR6dJF 1tF6gFlHjKiZ9 QTmnK636PqErmIAxKmmhk 5his1sxqDv0TnEgEWSiuf SkxWkgXEK7q5GfTn86T3N huAjba4MzCpv4 rf95ePSkw8Q3hRZ6T9SeJ YXpgmjgiPVyuSgdAY7hIT JnumcwLFWsrS1uJJKxM4w 7UqQmPmS5UGom G6DujbP4WFZzhLIzRDAfl TQQuV3mpcbtt4fuxyapYk VsQXMrSHn3OZt8BIHkfCy cXzQcRTZ7HeW1 JNB0uHVuzW6guTyjbmgcc G9wOyc+JBz2r7jfoBEnNS 6rhWN7WO76AI28aFGcq4Q 0hXD7Y4CcHFGm isdsrazicQL9MRXyIPWyt W77Eb0joAdpUc4zSYVsDE W3EMPusDGgC9QwwP8hGrK ePMHnVSHeO2Od uYOtWByjE226SOblTsJ9J DSpbdBuX3DaJDRwsTztGw F0b7Z2Ll6MIO03ED21MK9 5lPJow4H5uOY2 L9MpJKMwsrgyowsprYJ5F GQcPZEzeQ05Nq1nsTysFd 5bZOQvBXI1MKDcxAWnA9R cgA4oZkIwXQGh KVXzU9IyjTBnTNotQ941U YhmLjX2UINuhvUwP6VcHA IptArdEgV4c8C6Xs3UGx0 9BC73PQ06wMJj s6U7lOI1W0AvFTMrokxzn ogxaUI3VDSqPPUbhQ46Yk 6uhGqlUz5hTHBmDOP5ALR obOBeD1DqvK0m ZkXlPJDrHXQoT7YjkOFvX LecK969DNcyBsU7XVSqgx BjL1AcOJVzfXirBlK6e8P 5Yl5ACKnryyj9 I4NsXjmkuRG+GV27RPSwZ Y37nSHksOQdf5lvdGh8Ay YcQOApGCP6tVzmBXkav2A mZMLaB53mnWQf c2U (more content not included)... [facility] Provider Orderson 03-20-2025 Provider Orders [id number]#1. [id number] [facility] C Urineon 03-18-2025 C Urine [...] <=2 Verified Tri/Sulf S <=2/38 Verified Normal [facility] Comment on above: Performed By: #### [id number] #### [facility] (DEFAULT) [address] [place] [address] Provider Orderson 03-16-2025 Provider Orders [id number]#1. [id number] Normal [facility] Cult,Bloodon 02-01-2025 Cult,Blood Specimen Description .BLOOD Special Requests Culture NO GROWTH 5 DAYS Report Status FINAL 02/01/2025 [facility] Comment on above: Performed By: #### B C #### [place] [id number] Telemarketer: Alejandro Salazar MD Cult,Blood Specimen Description .BLOOD Special Requests RIGHT HAND 1ML Culture NO GROWTH 5 DAYS Report Status FINAL 02/01/2025 [facility] Comment on above: Performed By: #### B C #### [address] [address] Telemarketer: Alejandro Salazar MD Coding Summaryon 01-30-2025 Coding Summary HTMLBase 64 MxkbyvmvDUi0mXz+PGhlY WQ+YM7UPNNtB68saCFckD 1jP8CUSFnHOuluTCULNBc GCjZxepAtQD3ahPNsLFNu IC8+QA7eEPYeNkalzBIml 1Y8jUJ1D42zlq3yFWqkoY B4QMYuQpNaethmg2ggaRq 6IDcuNmluOyBt HIVlzZ01EHD5nM45Mo00v EFliISra4fbjBw5SfBlOW UtLZE6nPjaLGbwq2UvWIP vG42axATqr4R4 KPIgaBxtyZZbNsZxxLA3k H5sNYfkbqgpp7xzbaggBf k5kh14vUNij5O7vCW1L5C atzM6AXZotQFj GijtoUAMdU5vuddpg8jnt xjyRsEqANHbPKy2CDc8KF DovIroWeZbWN41BNB2BGK hypJnX1RxDAEb cNrmEuJ4u0H3Ik6AS3QES xwgZ3PJGXHKSDihaHL+PC 73co32R0XoUpsjKrj2DNM uBZN3nYF5iM3t TQLlDQpru7K1wJO5V5Rzv rNzuj2rb0llWPAlKFgdO5 8ezVFap1V7YAPkhLZ5VJU peIipLcFvkJ41 Oyc+VMCpuDaxv8OxVjpkm 4qsk0szvZm0QtelPUGeaa CzbTbuDMI1h1XcGz8qPPV eiXW6gEO3oX4a BuGuVyK5TNfeY083JkApm LMwHqsfB21uD4KmlTM+PH ScAum9WGFjcYvfWA3uZ5V hZGRpbmctbGVm zEmeNK4vVWAqhaweWFFyv C7fQKCpE0w5IoXpMpD3SY ijA4CyAFOrfdkiBc52fY8 mCbRcUzR9TVrq G9VxhaK3KWMowHTrDPnfV AQ2G91fq8D6OBVlQVFfIM Q7bZT1tY7ihXadhydorGB mdDsgdmVydGlj MRzoTLrcU929BHBrsRpjZ kNvZGluZyBEYXRlOiAgMD QvMTQvMjAyNTwvdGQ+PHR kKSP7kKriWQJp bMAbFJddTf0wxBvpsXlwH Z7yPQKbyeopQDMuhL7tNK ZtpYSmlHloRO1vQPFrbzv jf443OjXxEWL4 TOLyoCNiH8IsyO5sBnAlS DGsYCWqN6CmdYPlXMkgJ3 79IQcbWgT1VJGvvpWgK7T sLWFsaWduOiB0 v2J2Uf6Jm1DtvrbeH6Xzq IXdFdErYtotWPi2X7KpPk wvdHI+SS02CLWrSE10IJo 0QLB7mWerJIsy AVTsC9JwzB5oVhCdBOQyD GRkOyc+PHRhYmxlIHdpZH RoPScxMDAlJyBzdHlsZT0 mVz7aJHSzBXRs pLxvtGZsEoHsu2grFWKsQ EuwNK0bsHcfW2GagMG7LF Sef2c0Ng24E10jP8CqnVO +ZTAbpPF7sYB7 oA9nPxApSyA5YOwtB486M dLzvZKuZtfcc2vxp3oqoF j5LpY0KOWalbRcxFwcHRQ 8k8VzDq93D24s IHdpZHRoPSIxNSUiIHZhb Spojl4eiR6bLk7+PGNvbC T1mQD1tT0eBzKeGyX9GLz qB077KaIgmLQv Znsnk4poi4iabYz9JyIkM JJliuIxqTnnJYM5o6TmDp 52Q8NppWlzl5WmUha2aq0 4yIGfh0M5bMS6 I5ExMWLfedeqaQBlfXufK O3zZBOtvgpzFPFcdS2iHO SxF5n0VjMqInK0ZSqdG6M plnC0OGOksJXk LCGqyGQRjY0ozwcqo4uox byjMnSqSKYdMFl6YKe5BV QgjWhgZfYaPSM2SuZ3FWP 9aEJzdH5hmLol dlufuL5qQbl+TYI2bPRns RAJRN2gKwalrXR+PHRkIH J2oBwfRQsnBNSufL8aYYA xD9p3KmUlSqT8 IRjpD9HwtpD8NBWdcQKgA JDarGDQdM5vobppi0ltrg vvNsBjZFNuEVx5KDj9MUE saWduOiBsZWZ0 FcV7KDC5oOJmhJ3deJrli fifgS0mKtj+QmlydGggRG M8YIb7N3HfLui9MAQlaTc fKE4zhGXaSTnk Ne2qnAqoeLrpLN9hUAWwo hvyr812VjWuz2ofJLLfjY PzCDlvQCB6D84ow7K4SDZ xRZJdNZW1jED1 vO2jaGnlmgxpjYPbfPflq bPzcWbmIFvvAUwjP995BZ OxrBnsGrLjPUh0U4EyOur 1BLVdgCsuMA0g gQIjYLmkOm1msJdvvBrnN K6bHLQnlkpwi538MiOvt1 hwLZBtjQPvNWicKXX8U35 he5Z8BGQjFTXg DDR8hWQ7tW8wcEfirbdzs GVmdDsgdmVydGljYWwtYW wlV565EYHosFopXhFabLq 0W2GzKrl3WJNl xLsjJR7iwYWoQLejXu3sd QnuqPjtZE7bJYCkfkrpn2 65UkIhl7pdJSUepCYtHLh yNEG7J29ed6V6 YTHxLNOmDMM9pBE1eP0nh GlnbjogbGVmdDsgdmVydG ggKGyzVKyiS664HZVewFj nPlBhdGllbnQg URpjDTr4T6GzVzysoIE+P T94VLMdRI11jEKchAJcp9 zruMy5BuZuYLCpCCM0oAi tLLsxh7KnYXYo K48puEIrv2P7WLUriRnpb HCwJoRcnWF4iH0yJDnttg bka8snprgbIzmfj1ktot4 8zV83Y21gISgx ZHRoPSIzMCUiIHZhbGlnb x3azZ5lTy3+OHIpzDV9nI I5jW1uNJJbXeN9EVxgF00 9InRvcCIvPjxj w7zib2idfEr5JiA7DQRlz xHlqMebUQL7b7UuFo86H9 9sIHdpZHRoPSIyMCUiIHZ rtThuvo4tmX8z Ii8+TOGlaTJ2jFR0fJ5zL tEdUrS1XZntM768XwXtfM YtOpfkF43gZ0AbxDY+PHR pLek0KPKphBvn NB5suXCdATufSr5zEEO8S rEfRxLcPEscH9LlIYIwzd qsvxebrKC7YQZrZWYrdS4 9Sn2stDzgFQLb zYWUoL0ivkodb6fkofilE jNxASXuHVp4YQy2KPVwlG ozXvIjWXG0FyV0VXO2fDR psC8htHxyhtpq uB8bB1XfHWOnznhuFu71b G3qJjPpQbU2DJsoVxz+TU 0IRWjlV2KSFOTNSWEAI3V MOO17T5JoVgz6 ADJcdDhvOP4sgQJtQHdxE i1xnLaokAgjKE9pTWMxlx irBCMjeN6bVFDhpXNebIv wTC9qNRLibojz t395BaBfEAS0LRZhuWSwG 3LsqI4qFvGgTJRoSNIjG9 EepIJzXSwfY536MYbzOcF 6EGIfgeMdU3Zb CNLztUzoZwX0x0C3Da7xC F9vPh3nWLrbWI83ZU75iD Ouz0A0jLC8S0NfUCRzcqo rjdhuvYA7TMMm MTClrL48lIJyXNewMd9un 4Z0m451HEEqNPVsrQ58Ht 4kqAiwIBOphVUKxE4stvd qv2bhcuzyLtWb DDJtBCz9XHr3QRNyrDnuC mNkFGE2CrN3EKS4mFEffI 2zgBjlzrjbwP3fGzh+MzM fLLKcdxY3P1Mk Hmz1JJBrlGaaKR5wzMAkA TsoXe2dwUzenDpqMV0sSQ IkmcmlPTIhuJ1yHXOzkVA ppBgxIV8fTILp fegun573TbQjOAY9GSXls WSrQ0WifE6wPjGqMYCsVE TiT2FctOLcDTswY891POh hVbP4HQQmbdIt S5WbFJQepEnmIkR3t1X3M o7FEQ2OZLT6V0FeTup4FX QetKtoAJ5rjLDaXFvaXi6 laEszzHnuFZ9o HYEoowfwXZYooU2gWEUsx ZLehSslAN6kNJHlrqmhh7 59WnGcFPE0HCAdqUJdN1S ntJ3yBkZoJEPn JNNmR6XkxNFyJZmdX659K OitJmS3YPCyvvDjJ2FdFS SyjAeyWoZ3s9S2Wv9QhJL mY0BrC3t1B6Sh PjwvdHI+TO57KUVcGB99g KAsbLAty8jgnDd2ToDsBS UmUCD2xMmuXHjyb1CfBIM cD49rtSUpu2U0 TDSleMfizKWkNsMijEB1n N8dWWessyxmu4djsbupEt ckn3nvha82fA63D90hUKb pZHRoPSIzMCUi TCOtjKojyb2hkX1hZt8+P HFvkBV5cHP8iR7sIzTrWq U1BZppD182LlExkYGsNsx di9oil9hwcEd5 LaOrEWEizuZtiPmcCDC4r 5RjEi97W07iGSryUKNxJE SfMCGxYCFexYewie6rpX1 wIi8+QT9oi6us jt73pW31tMX+QLUvWYM6r AliBCovVXMuwP5nADtcEz Q3TFNcLiCdbC83bYDiQIt xOa7gyNksrGzr XO9uHIOcijquv103UyEqt 6btKOMihBTtHYnuXCN2H4 7oi2M1EHTxRDGeAGV2mCL 7uH7xaJuupbqn bGVmdDsgdmVydGljYWwtY UzxA877BVByjKyhRcUxbJ LvC0hxtpJYUR0qSlwdpHY +UQWiEAX1sOmj XHfmTUHhrF0uPLDoW4e5Z pZtDhA1OGrqY1ScrmX1FC QbsCOkIVAacLLLqF1ecgx ro9ksumsaFgNf HHDzTDd5NNa1PNNsdOotW rWnXLJ1ArG6HSW2hHTryJ 5buChijvpleH3eQqj+Rkl OOjwvdGQ+PHRk MVG7wNrvDZsmIWAxvL4dF XTwY4x0ZdRrXfR3KStdV6 BsjrM5DXEkvNRgJNPrdPU CrA3pebsdb0hm zcbiAtSzSYUuXHo0VMv1K YJlsZynRdVhKJZ3QlB6XS E2bAPaeK8owHvyqanruA1 wOyc+TVJOOjwv dGQ+SWFvCUV9xMwhOHbyZ XUoeI4aZKEmF8s6OvCqRl V3XNowO0YfxnP9IPLezUH mVTSeoKQEfR8b agoll7baagdhKmMhZZQgT Au6MMx7QQQvrNsaQaChDI I2QhZ3MQD5pWSaiK6hqSn swtlevL4tMmh+ ZKQ0NAC7WX12CW26L2WaW jwvdGFibGU+PHRhYmxlIH dpZHRoPScxMDAlJyBzdHl oVB0yTl1vMVBi LWN (more content not included)... Normal [facility] C Urineon 01-28-2025 C Urine Urine Culture ordere d as a result of parameters set on specific urine dip and urine microsopic results. Mixed skin, or urogenital daiana. Clinically insignificant [facility] Comment on above: Performed By: #### [id number], [id number] #### [facility] (DEFAULT) [address] [place] [address] Cult,Urineon 01-28-2025 Cult,Urine Specimen Description .BLADDER URINE FROM CYSTOSCOPY Special Requests Site: Urine Culture NO GROWTH Report Status FINAL 01/28/2025 Normal [facility] Comment on above: Performed By: #### B MP #### [address] [address] Telemarketer: Alejandro Salazar MD Culture, Urineon 01-28-2025 Microorganism identified Cx Nom (Unsp spec) NO GROWTH [facility] Service comment (Unsp spec) [Interp] Site: Urine [facility] Specimen Description .BLADDER URINE FROM CYSTOSCOPY [facility] Basic Metabolic Profon 01-27 Anion gap [Moles/Vol] 9 mmol/L Normal 9-16 [facility] Comment on above: Performed By: #### B MP #### [address] [address] Telemarketer: Alejandro Salazar MD Calcium [Mass/Vol] 8.3 mg/dL Low 8.6-10.4 [facility] Comment on above: Performed By: #### B MP #### [facility] [employer] [address] [place] [id number] Telemarketer: Alejandro Salazar MD Chloride [Moles/Vol] 108 mmol/L High 98-107 [facility] Comment on above: Performed By: #### B MP #### [facility] [employer] [address] [place] [address] Telemarketer: Alejandro Salazar MD CO2 [Moles/Vol] 22 mmol/L Normal 20-31 [facility] Comment on above: Performed By: #### B MP #### [facility] [employer] [address] [place] [phone] Telemarketer: Alejandro Salazar MD Creatinine [Mass/Vol] 0.7 mg/dL Normal 0.6-0.9 [facility] Comment on above: Performed By: #### B MP #### [address] [address] Telemarketer: Alejandro Salazar MD GFR/1.73 sq M.predicted among non-blacks MDRD (S/P/Bld) [Vol rate/Area] mL/min/{1.73_m2} Normal >60 [facility] Comment on above: Result Comment: These [...] secretion. Performed By: #### B MP #### [facility] [employer] [address] [place] [address] Telemarketer: Alejandro Salazar MD Glucose [Mass/Vol] 85 mg/dL Normal 74-99 [facility] Comment on above: Performed By: #### B MP #### [address] [address] Telemarketer: Alejandro Salazar MD Potassium [Moles/Vol] 3.9 mmol/L Normal 3.7-5.3 [facility] Comment on above: Performed By: #### B MP #### [facility] [employer] [address] [place] [address] Telemarketer: Alejandro Salazar MD Sodium [Moles/Vol] 139 mmol/L Normal 136-145 [facility] Comment on above: Performed By: #### B MP #### [facility] [employer] [address] [place] [address] Telemarketer: Alejandro Salazar MD Urea nitrogen [Mass/Vol] 11 mg/dL Normal 6-20 [facility] Comment on above: Performed By: #### B #### [facility] [employer] [address] [place] [address] Telemarketer: Alejandro Salazar MD Basic metabolic panelon 01-17 [...] [Mass/Vol] 0.7 mg/dL 0.6 - 0.9 mg/dL [facility] [employer], Glohayley Lundt Rate - PINF [facility] Comment on above: These results are not [...] [Mass/Vol] 11 mg/dL 6 - 20 mg/dL [facility] CBC auto differentialon 01-17 Basophils (Bld) [#/Vol] 0.04 10*3/uL [facility] Basophils/100 WBC (Bld) 1 % 0 - 2 % [facility] Eosinophils (Bld) [#/Vol] 0.14 10*3/uL [facility] Eosinophils/100 WBC (Bld) 4 % 1 - 4 % [facility] Erythrocyte distribution width (RBC) [Ratio] 12.6 % 11.8 - 14.4 % [facility] Hematocrit (Bld) [Volume fraction] 34.2 % Low 36.3 - 47.1 % [facility] Hemoglobin (Bld) [Mass/Vol] 10.7 g/dL Low 11.9 - 15.1 g/dL [facility] Immature granulocytes (Bld) [#/Vol] [facility] Immature granulocytes/100 WBC (Bld) 0 % 0 [facility] Interpretation and review of laboratory results Abnormal [facility] Lymphocytes/100 WBC (Bld) 55 % High 24 - 43 % [facility] Lymphocytes/100 WBC (Bld) 2.11 % [facility] MCH (RBC) [Entitic mass] 27.1 pg 25.2 - 33.5 pg [facility] MCHC (RBC) [Mass/Vol] 31.3 g/dL 28.4 - 34.8 g/dL [facility] MCV (RBC) [Entitic vol] 86.6 fL 82.6 - 102.9 fL [facility] Monocytes/100 WBC (Bld) 9 % [...] Campus WBC other (Bld) [#/Vol] 3.9 [facility] CBC with Diffon 01-27-2025 Abs. Basophil 0.04 k/uL Normal 0.00-0.20 [facility] Comment on above: Performed By: #### B MP #### [address] [address] Telemarketer: Alejandro Salazar MD Abs.Imm.Granulocyte <0.03 Normal 0.00-0.30 [facility] Comment on above: Performed By: #### B MP #### [place] [address] Telemarketer: Alejandro Salazar MD Abs.Neutrophil (Seg) 1.21 k/uL Low 1.50-8.10 [facility] Comment on above: Performed By: #### B MP #### [place] [address] Telemarketer: Alejandro Salazar MD Basophils/100 WBC (Bld) 1 % Normal 0-2 [facility] Comment on above: Performed By: #### B MP #### [place] [address] Telemarketer: Alejandro Salazar MD Eosinophils (Bld) [#/Vol] 0.14 10*3/uL Normal 0.00-0.44 [facility] Comment on above: Performed By: #### B MP #### [address] [address] Telemarketer: Alejandro Salazar MD Eosinophils/100 WBC (Bld) 4 % Normal 1-4 [facility] Comment on above: Performed By: #### B MP #### [address] [address] Telemarketer: Alejandro Salazar MD Erythrocyte distribution width (RBC) [Ratio] 12.6 % Normal 11.8-14.4 [facility] Comment on above: Performed By: #### B MP #### [address] [address] Telemarketer: Alejandro Salazar MD Hematocrit (Bld) [Volume fraction] 34.2 % Low 36.3-47.1 [facility] Comment on above: Performed By: #### B MP #### [address] [address] Telemarketer: Alejandro Salazar MD Hemoglobin (Bld) [Mass/Vol] 10.7 g/dL Low 11.9-15.1 [facility] Comment on above: Performed By: #### B MP #### [address] [address] Telemarketer: Alejandro Salazar MD Immature granulocytes/100 WBC (Bld) 0 % Normal 0 [facility] Comment on above: Performed By: #### B MP #### [address] [address] Telemarketer: Alejandro Salazar MD Lymphocytes (Bld) [#/Vol] 2.11 10*3/uL Normal 1.10-3.70 [facility] Comment on above: Performed By: #### B MP #### [address] [address] Telemarketer: Alejandro Salazar MD Lymphocytes/100 WBC (Bld) 55 % High 24-43 [facility] Comment on above: Performed By: #### B MP #### [address] [address] Telemarketer: Alejandro Salazar MD MCH (RBC) [Entitic mass] 27.1 pg Normal 25.2-33.5 [facility] Comment on above: Performed By: #### B MP #### [address] [address] Telemarketer: Alejandro Salazar MD MCHC (RBC) [Mass/Vol] 31.3 g/dL Normal 28.4-34.8 [facility] Comment on above: Performed By: #### B MP #### [address] [address] Telemarketer: Alejandro Salazar MD MCV (RBC) [Entitic vol] 86.6 fL Normal 82.6-102.9 [facility] Comment on above: Performed By: #### B MP #### [address] [address] Telemarketer: Alejandro Salazar MD Monocytes (Bld) [#/Vol] 0.35 10*3/uL Normal 0.10-1.20 [facility] Comment on above: Performed By: #### B MP #### [address] [address] Telemarketer: Alejandro Salazar MD Monocytes/100 WBC (Bld) 9 % Normal 3-12 [facility] Comment on above: Performed By: #### B MP #### [address] [address] Telemarketer: Alejandro Salazar MD Neutrophil (Seg) 31 % Low 36-65 [facility] Comment on above: Performed By: #### B MP #### [address] [address] Telemarketer: Alejandro Salazar MD NRBC Automated 0.0 per 100 WBC Normal 0.0 [facility] Comment on above: Performed By: #### B MP #### [address] [address] Telemarketer: Alejandro Salazar MD Platelet mean volume (Bld) [Entitic vol] 9.1 fL Normal 8.1-13.5 [facility] Comment on above: Performed By: #### B MP #### [facility] [place] [address] Telemarketer: Alejandro Salazar MD Platelets (Bld) [#/Vol] 238 10*3/uL Normal 138-453 [facility] Comment on above: Performed By: #### B MP #### [facility] [address] [place] [address] Telemarketer: Alejandro Salazar MD RBC (Bld) [#/Vol] 3.95 10*6/uL Normal 3.95-5.11 [facility] Comment on above: Performed By: #### B MP #### [facility] [address] [place] [address] Telemarketer: Alejandro Salazar MD WBC (Bld) [#/Vol] 3.9 10*3/uL Normal 3.5-11.3 [facility] Comment on above: Performed By: #### B MP #### [facility] [employer] [address] [place] [address] Telemarketer: Alejandro Salazar MD Consent Formson 01-27-2025 Consent Forms [id number]. [id number] [facility] Cult,Urineon 01-27-2025 Cult,Urine Specimen Description .URINE Culture NO SIGNIFICANT GROWTH Report Status FINAL 01/27/2025 Normal [facility] Comment on above: Performed By: #### B MP #### [facility] [employer] [address] [place] [address] Telemarketer: Alejandro Salzaar MD Culture, Urineon 01-27-2025 Microorganism identified Cx Nom (Unsp spec) NO SIGNIFICANT GROWTH [facility] Specimen Description .URINE [facility] OB10 [facility] FLUORO FOR SURGICAL PROCEDUR ESon 01-27-2025 FLUORO FOR SURGICAL PROCEDURES Radiology exam is complete. No Radiologist dictation. Please follow up with ordering provider. Final result Normal [facility] Guidance-- during surgeryon 01-27-2025 Radiology exam is complete. No Radiologist dictation. Please follow up with ordering provider. MHPN RIS CONSOLIDATED .Auto Diff 1on 01-26-2025 Auto Dale % 10 % Normal 1-12 [facility] Comment on above: Performed By: #### 7 146406, [id number], [id number], [id number], [id number] #### [facility] (DEFAULT) [address] [place] [address] Baso Abs# 0.0 x10 Normal 0.0-0.2 [facility] Comment on above: Performed By: #### 7 169069, [id number], [id number], 90452870, 320943419 #### [facility] (DEFAULT) [address] [place] [address] Basophils/100 WBC (Bld) 0.7 % Normal 0.2-2.0 [facility] Comment on above: Performed By: #### 7 944742, [id number], [id number], 92872227, [id number] #### [facility] (DEFAULT) [address] [place] [address] Eos Abs# 0.1 x10 Normal 0.0-0.4 [facility] Comment on above: Performed By: #### 7 941820, [id number], 3199554171, 46424700, [id number] #### [facility] (DEFAULT) [address] [place] [address] Eosinophils/100 WBC (Bld) 2.4 % Normal 0.9-4.0 [facility] Comment on above: Performed By: #### 7 805148, [id number], 8773196439, 72308377, 927952303 #### [facility] (DEFAULT) [address] [place] [address] Lymph Abs# 1.8 x10 Normal 1.3-2.9 [facility] Comment on above: Performed By: #### 7 111845, [id number], 5196887791, 54837196, 627677338 #### [facility] (DEFAULT) [address] [place] [address] Lymphocytes/100 WBC (Bld) 38 % Normal 14-48 [facility] Comment on above: Performed By: #### 7 914775, 1578601072, 2700700875, 75950639, 367503946 #### [facility] (DEFAULT) [address] [place] [address] Dale Abs# 0.5 x10 Normal 0.0-0.8 [facility] Comment on above: Performed By: #### 7 184235, 1188552982, 5922810737, 99159140, 225145139 #### [facility] (DEFAULT) [address] [place] [address] Neut Abs# 2.4 x10 Normal 1.5-9.2 [facility] Comment on above: Performed By: #### 7 560668, [id number], 5884111969, 08849640, 803425464 #### [facility] (DEFAULT) [address] [place] [address] Neutrophils/100 WBC (Bld) 49 % Normal 44-88 [facility] Comment on above: Performed By: #### 7 115466, [id number], 5197384589, 65308663, 540564055 #### [facility] (DEFAULT) [address] [place] [address] Basic Metabolic Panelon 04-1 0 Anion gap [...] Est, Glom Filt Rate 87 - PINF [facility] Comment on above: These results are not [...] [Mass/Vol] 12 mg/dL 6 - 20 mg/dL [facility] Basic Metabolic Profon 01-26 Anion gap [Moles/Vol] 12 mmol/L Normal 9-16 [facility] Comment on above: Performed By: #### B MP #### [facility] [employer] [address] [place] [address] Telemarketer: Alejandro Salazar MD Calcium [Mass/Vol] 8.6 mg/dL Normal 8.6-10.4 [facility] Comment on above: Performed By: #### B MP #### [facility] [employer] [address] [place] [address] Telemarketer: Alejandro Salazar MD Chloride [Moles/Vol] 106 mmol/L Normal 98-107 [facility] Comment on above: Performed By: #### B MP #### [facility] [employer] [address] [place] [address] Telemarketer: Alejandro Salazar MD CO2 [Moles/Vol] 21 mmol/L Normal 20-31 [facility] Comment on above: Performed By: #### B MP #### [facility] [employer] [address] [place] [address] [id number] Telemarketer: Alejandro Salazar MD Creatinine [Mass/Vol] 0.9 mg/dL Normal 0.6-0.9 [facility] Comment on above: Performed By: #### B MP #### [facility] [employer] [address] [place] [address] Telemarketer: Alejandro Salazar MD GFR/1.73 sq M.predicted among non-blacks MDRD (S/P/Bld) [Vol rate/Area] 87 mL/min/{1.73_m2} Normal >60 [facility] Comment on above: Result Comment: These [...] secretion. Performed By: #### B MP #### [facility] [employer] [address] [place] [address] Telemarketer: Alejandro Salazar MD Glucose [Mass/Vol] 126 mg/dL High 74-99 [facility] Comment on above: Performed By: #### B MP #### [address] [address] Telemarketer: Alejandro Salazar MD Potassium [Moles/Vol] 3.7 mmol/L Normal 3.7-5.3 [facility] Comment on above: Performed By: #### B MP #### [facility] [employer] [address] [place] [address] Telemarketer: Alejandro Salazar MD Sodium [Moles/Vol] 139 mmol/L Normal 136-145 [facility] Comment on above: Performed By: #### B MP #### [address] [address] Telemarketer: Alejandro Salazar MD Urea nitrogen [Mass/Vol] 12 mg/dL Normal 6-20 [facility] Comment on above: Performed By: #### B MP #### [employer] [address] [place] [address] Telemarketer: Alejandro Slaazar MD [facility] 01-26-2025 Erythrocyte distribution width (RBC) [Ratio] [...] [facility] WBC other (Bld) [#/Vol] 5.9 [facility] Erythrocyte distribution width (RBC) [Ratio] 12.7 % Normal 11.8-14.4 [facility] Comment on above: Performed By: #### B MP #### [employer] [address] [place] [address] Telemarketer: Alejandro Salazar MD Hematocrit (Bld) [Volume fraction] 38.1 % Normal 36.3-47.1 [facility] Comment on above: Performed By: #### B MP #### [employer] [address] [place] [address] Telemarketer: Alejandro Salazar MD Hemoglobin (Bld) [Mass/Vol] 12.0 g/dL Normal 11.9-15.1 [facility] Comment on above: Performed By: #### B MP #### [address] [address] Telemarketer: Alejandro Salazar MD MCH (RBC) [Entitic mass] 27.9 pg Normal 25.2-33.5 [facility] Comment on above: Performed By: #### B MP #### [address] [address] Telemarketer: Alejandro Salazar MD MCHC (RBC) [Mass/Vol] 31.5 g/dL Normal 28.4-34.8 [facility] Comment on above: Performed By: #### B MP #### [address] [address] Telemarketer: Alejandro Salazar MD MCV (RBC) [Entitic vol] 88.6 fL Normal 82.6-102.9 [facility] Comment on above: Performed By: #### B MP #### [address] [address] Telemarketer: Alejandro Salazar MD NRBC Automated 0.0 per 100 WBC Normal 0.0 [facility] Comment on above: Performed By: #### B MP #### [address] [address] Telemarketer: Alejandro Salazar MD Platelet mean volume (Bld) [Entitic vol] 9.0 fL Normal 8.1-13.5 [facility] Comment on above: Performed By: #### B MP #### [address] [address] Telemarketer: Alejandro Salazar MD Platelets (Bld) [#/Vol] 261 10*3/uL Normal 138-453 [facility] Comment on above: Performed By: #### B MP #### [address] [address] Telemarketer: Alejandro Salazar MD RBC (Bld) [#/Vol] 4.30 10*6/uL Normal 3.95-5.11 [facility] Comment on above: Performed By: #### B MP #### [address] [address] Telemarketer: Alejandro Salazar MD WBC (Bld) [#/Vol] 5.9 10*3/uL Normal 3.5-11.3 [facility] Comment on above: Performed By: #### B MP #### [address] [address] Telemarketer: Alejandro Salazar MD CBC w/ Auto Diffon Erythrocyte distribution width (RBC) [Ratio] 13.6 % Normal 11.5-15.0 [facility] Comment on above: Performed By: #### 7 260049, [id number], 6976956263, 67533645, 505988372 #### [facility] (DEFAULT) [address] [place] [address] Hematocrit (Bld) [Volume fraction] 37.0 % Normal 33.7-40.4 [facility] Comment on above: Performed By: #### 7 655859, [id number], 8819775982, 51180963, 888209104 #### [facility] (DEFAULT) [address] [place] [address] Hemoglobin (Bld) [Mass/Vol] 12.7 g/dL Normal 11.3-15.9 [facility] Comment on above: Performed By: #### 7 292094, 5391196589, 7474381619, 48056600, 416751555 #### [facility] (DEFAULT) [address] [place] [address] Man Diff? Auto Invalid Interpretation Code [facility] Comment on above: Performed By: #### 7 192782, [id number], 0167788258, 07346670, 836086975 #### [facility] (DEFAULT) [address] [place] [address] MCH (RBC) [Entitic mass] 29 pg Normal 24-34 [facility] Comment on above: Performed By: #### 7 047697, 6135435105, 3073068402, 36929062, 057045713 #### [facility] (DEFAULT) [address] [place] [address] MCHC (RBC) [Mass/Vol] 34 g/dL Normal 26-37 [facility] Comment on above: Performed By: #### 7 156105, 4246286041, 5393970579, 03960161, 557343342 #### [facility] (DEFAULT) [address] [place] [address] MCV (RBC) [Entitic vol] 84 fL Normal 81-100 [facility] Comment on above: Performed By: #### 7 222703, 5303279489, 5072108748, 84880172, 734810763 #### [facility] (DEFAULT) [address] [place] [address] Platelet 287 x10 Normal 138-427 [facility] Comment on above: Performed By: #### 7 820801, 7023885084, 4083721768, 92852661, 900538550 #### [facility] (DEFAULT) [address] [place] [address] Platelet mean volume (Bld) [Entitic vol] 7.3 fL Normal 6.3-10.2 [facility] Comment on above: Performed By: #### 7 965488, 4834393752, 6718595818, 96661833, 416784626 #### [facility] (DEFAULT) [address] [place] [address] RBC 4.39 x10 Normal 3.70-5.30 [facility] Comment on above: Performed By: #### 7 524870, 6528874518, 1671119437, 80615746, 884043931 #### [facility] (DEFAULT) [address] [place] [address] WBC 4.8 x10 Normal 3.5-10.5 [facility] Comment on above: Performed By: #### 7 614229, 6731264220, 1697229510, 27547449, 598225626 #### [facility] (DEFAULT) [address] [place] [address] CMP Standardon 01-26-2025 eGFR Non AA >60 Invalid Interpretation Code [facility] Comment on above: Performed By: #### 7 246325, [id number], 4480671451, 20137954, 743549101 #### [facility] (DEFAULT) [address] [place] [address] eGFR AA >60 Invalid Interpretation Code [facility] Comment on above: Performed By: #### 7 610403, 3203626952, 5887865972, 14456451, 108649410 #### [facility] (DEFAULT) [address] [place] [address] Albumin [Mass/Vol] 3.7 g/dL Normal 3.5-5.0 [facility] Comment on above: Performed By: #### 7 064237, 4836316056, 4870812037, 97693592, 552100226 #### [facility] (DEFAULT) [address] [place] [address] Albumin/Globulin [Mass ratio] 1.0 {ratio} Low 1.4-2.6 [facility] Comment on above: Performed By: #### 7 160544, 2394024130, 7059939976, 08947150, 917432133 #### [facility] (DEFAULT) [address] [place] [address] Alk Phos 70 IU/L Normal 32-91 [facility] Comment on above: Performed By: #### 7 372605, 8973771537, 2933645310, 74227391, 993871944 #### [facility] (DEFAULT) [address] [place] [address] ALT [Catalytic activity/Vol] 75.0 U/L High 14.0-54.0 [facility] Comment on above: Performed By: #### 7 626433, 0995268987, 3355640207, 42419275, 856091975 #### [facility] (DEFAULT) [address] [place] [address] AST [Catalytic activity/Vol] 27 U/L Normal 15-41 [facility] Comment on above: Performed By: #### 7 558550, 0178080920, 4839678849, 16525779, 570544001 #### [facility] (DEFAULT) [address] [place] [address] Bili Total 0.7 mg/dL Normal 0.3-1.2 [facility] Comment on above: Performed By: #### 7 423587, 6881296567, 0828105973, 89399625, 861939366 #### [facility] (DEFAULT) [address] [place] [address] Creatinine [Mass/Vol] 0.94 mg/dL Normal 0.60-1.30 [facility] Comment on above: Performed By: #### 7 951466, 6397396326, 4421592398, 16329007, 541116396 #### [facility] (DEFAULT) [address] [place] [address] Globulin (S) [Mass/Vol] 3.5 g/dL Normal 1.5-4.3 [facility] Comment on above: Performed By: #### 7 996012, 7720519783, 0892456354, 81914685, 135207136 #### [facility] (DEFAULT) [address] [place] [address] Osmolality 277 mOsm/L Invalid Interpretation Code [facility] Comment on above: Performed By: #### 7 079418, 2064357277, 2121054471, 63405138, 542959897 #### [facility] (DEFAULT) [address] [place] [address] Protein [Mass/Vol] 7.2 g/dL Normal 6.5-8.1 [facility] Comment on above: Performed By: #### 7 752569, 1247701523, 2227145456, 47435698, 625083427 #### [facility] (DEFAULT) [address] [place] [address] Urea nitrogen [Mass/Vol] 13 mg/dL Normal 8-26 [facility] Comment on above: Performed By: #### 7 253381, 8650159057, 8991813380, 49769719, 761396814 #### [facility] (DEFAULT) [address] [place] [address] Urea nitrogen/Creatinine [Mass ratio] 13.8 mg/mg Normal 4.6-16.2 [facility] Comment on above: Performed By: #### 7 553009, 5767963766, 5275860786, 66989878, 042357879 #### [facility] (DEFAULT) [address] [place] [address] Anion gap [Moles/Vol] 13.6 mmol/L Normal 5.0-19.0 [facility] Comment on above: Performed By: #### 7 814490, 9805037514, 1921108185, 86307625, 659636759 #### [facility] (DEFAULT) [address] [place] [address] Calcium [Mass/Vol] 9.4 mg/dL Normal 8.9-10.3 [facility] Comment on above: Performed By: #### 7 273986, 3675663438, 1515667556, 00499605, 861166622 #### [facility] (DEFAULT) [address] [place] [address] Chloride [Moles/Vol] 104 mmol/L Normal 101-111 [facility] Comment on above: Performed By: #### 7 563678, 4226394247, 8612036954, 85341464, 754032940 #### [facility] (DEFAULT) [address] [place] [address] CO2 [Moles/Vol] 25 mmol/L Normal 21-32 [facility] Comment on above: Performed By: #### 7 754981, 4697189584, 2271828782, 56674779, 070690727 #### [facility] (DEFAULT) [address] [place] [address] Glucose [Mass/Vol] 93.0 mg/dL Normal 74.0-118.0 [facility] Comment on above: Performed By: #### 7 728291, 3740404244, 4996780429, 56116044, 222035194 #### [facility] (DEFAULT) [address] [place] [address] Potassium [Moles/Vol] 3.6 mmol/L Normal 3.6-5.1 [facility] Comment on above: Performed By: #### 7 987285, 9221952193, 6051715464, 20276590, 280927197 #### [facility] (DEFAULT) [address] [place] [address] Sodium [Moles/Vol] 139.0 mmol/L Normal 136.0-144.0 [facility] Comment on above: Performed By: #### 7 765038, 4317395480, 1751610261, 52087084, 960715898 #### [facility] (DEFAULT) [address] [place] [address] Abdomen/Pelvis w/o Contra ston 01-26-2025 CT [...] MD 01/26/25 2:00 pm Technologist: Boogie COLE [facility] ED Note-Nursingon 01-26-2025 ED Note-Nursing Pt stated she was seen in [facility] recently and Dr. Plata is requesting records. Master Control Technician called [facility] to get records faxed. Stated they would be faxing results over. [facility] Extra Blueon 01-26-2025 Tube Collected Yes Invalid Interpretation Code [facility] Comment on above: Performed By: #### 7 589600, 2453105553, 1440584455, 07890490, 965359424 #### [facility] (DEFAULT) [address] [place] [address] Microscopic Urinalysison Bacteria LM Ql (Urine sed) None None [facility] Casts LM.LPF (Urine sed) [#/Area] 2 TO 5 HYALINE Reference range defined for non-centrifuged specimen. [facility] Epithelial cells LM.HPF (Urine sed) [#/Area] 2 TO 5 [facility] RBC LM.HPF (Urine sed) [#/Area] TOO NUMEROUS TO COUNT [facility] Comment on above: Reference range defi salty for non-centrifuged specimen. WBC LM.HPF (Urine sed) [#/Area] 20 TO 50 [facility] Test Serum 1on Preg Serum Internal Control OK [facility] Comment on above: Performed By: #### 7 288428, [id number], 3732438373, 10093699, 872378949 #### [facility] (DEFAULT) [address] [place] [address] Test Serum Qual Negative [facility] Comment on above: Performed By: #### 7 549653, [id number], 9888839447, 29328809, 036980954 #### [facility] (DEFAULT) [address] [place] [address] Stone Analysison 01-26-2025 Calculi description See Note [facility] Comment on above: Result Comment: (NOT E) Specimen consists of one rondon sample. The total weight is less than 2 mg. Performed By: #### A STONE #### [employer] [address] [place] [address] [phone] Telemarketer: Mane Tolbert MD Composition See Note [facility] Comment on above: Result Comment: [...] composition determined by FTIR analysis. Performed By: [employer] [address] [place] [address] Veterinary Technician: Jorge Melendrez MD, PhD CLIA Number: [id number] Performed By: #### A STONE #### [employer] [address] [place] [address] Telemarketer: Mane Tolbert MD Mass See Note [facility] Comment on above: Result Comment: (NOT E) Sample mass < 2 mg. Small sample size prevents accurate weight determination. Performed By: #### A STONE #### [address] [address] Telemarketer: Mane Tolbert MD Transfer Noteon 01-26-2025 Transfer Note Patient requires transfer to [facility] for a diagnosis of hydronephrosis. 1527- Kylie from [facility], Tamiko Mercedes NP paged, hospitalist speaks to Dr. Plata, accepts, top gun is open. 1539- Called [facility], science teacher Austin gave 20 minute ETA. 1547- [facility] arrives 1550- [facility] calls, bed assignment given, room 321 bed 2, report number [id number] 1610- [facility] departs [Electronically Signed on: 01/26/2025 16:28 EDT] Beth Rodriguez RN [Verified on: 01/26/2025 16:28 EDT] Beth Rodriguez RN 1630- Dr. Plata signs physician note, this note was faxed to [facility] at fax number [phone]. [Electronically Signed on: 01/26/2025 16:31 EDT] Beth Rodriguez RN Normal [facility] UA [id number] 01-26-2025 UA Bacteria Trace Normal [facility] Comment on above: Order Comment: Urina lysis Microscopic order added on by [employer] Expert Rules system. Performed By: #### 7 043597, [id number], [id number], 70730073, 341078637 #### [facility] (DEFAULT) [address] [place] [address] UA Comment. See Comment Invalid Interpretation Code [facility] Comment on above: Order Comment: Urina lysis Microscopic order added on by [employer] Expert Rules system. Result Comment: 4+ S ulfa Crystals present Performed By: #### 7 780528, [id number], 7835250145, 32363324, 620931512 #### [facility] (DEFAULT) [address] [place] [address] UA RBC Gross Blood [facility] Comment on above: Order Comment: Urina lysis Microscopic order added on by [employer] Rules system. Performed By: #### 7 600354, [id number], [id number], 10022829, 958010466 #### [facility] (DEFAULT) [address] [place] [address] UA Squam Epi Moderate Normal [facility] Comment on above: Order Comment: Urina lysis Microscopic order added on by [employer] Rules system. Performed By: #### 7 758751, [id number], 1233735012, 16626517, 200692816 #### [facility] (DEFAULT) [address] [place] [address] UA WBC 3-5 Normal [facility] Comment on above: Order Comment: Urina lysis Microscopic order added on by [employer] Rules system. Performed By: #### 7 826454, 4795039057, 4303722580, 19906656, 808824535 #### [facility] (DEFAULT) [address] [place] [address] UA w Culture if Ind Standard on 01-26-2025 Breakpoint UA [facility] Comment on above: Performed By: #### 7 584594, [id number], [id number], [id number], [id number] #### [facility] (DEFAULT) [address] [place] [address] Color (U) Red Normal [facility] Comment on above: Result Comment: Test cannot be satisfactorily determined due to intensely colored urine. Parameters which will be affected are: GLU, BRAIN, URO, KET, BLO, PRO, NIT, LISSA, SG, AND pH. Performed By: #### 7 [id number], [id number], [id number], [id number], [id number] #### [facility] (DEFAULT) [address] [place] [address] Culture? Yes Normal [facility] Comment on above: Result Comment: Resu lt created by rule GL_MAGR_ADD_UA_CULT Result created by rule GL_MAGR_ADD_UA_CULT1 Performed By: #### 7 [id number], [id number], [id number], [id number], [id number] #### [facility] (DEFAULT) [address] [place] [address] Glucose (U) [Mass/Vol] Negative Normal [facility] Comment on above: Performed By: #### 7 181963, [id number], [id number], [id number], [id number] #### [facility] (DEFAULT) [address] [place] [address] Ketones Ql (U) Negative Normal [facility] Comment on above: Performed By: #### 7 705682, [id number], [id number], [id number], [id number] #### [facility] (DEFAULT) [address] [place] [address] Micro? Indicated Invalid Interpretation Code [facility] Comment on above: Result Comment: Resu lt created by rule GL_MAGR_ADD_UA_MICRO Performed By: #### 7 062944, [id number], [id number], [id number], [id number] #### [facility] (DEFAULT) [address] [place] [address] UA Bilirubin SMALL Abnormal [facility] Comment on above: Performed By: #### 7 496286, [id number], [id number], [id number], [id number] #### [facility] (DEFAULT) [address] [place] [address] UA Blood LARGE Abnormal NEGATIVE [facility] Comment on above: Performed By: #### 7 359896, [id number], [id number], [id number], [id number] #### [facility] (DEFAULT) [address] [place] [address] UA Clarity CLOUDY Abnormal CLEAR [facility] Comment on above: Performed By: #### 7 303658, [id number], [id number], [id number], [id number] #### [facility] (DEFAULT) [address] [place] [address] UA Leuk Est MODERATE Abnormal NEGATIVE [facility] Comment on above: Performed By: #### 7 313049, [id number], [id number], [id number], [id number] #### [facility] (DEFAULT) [address] [place] [address] 24607 UA Nitrite Negative Normal NEGATIVE [facility] Comment on above: Performed By: #### 7 886595, [id number], [id number], [id number], [id number] #### [facility] (DEFAULT) [address] [place] [address] 24783 UA pH 7.0 Normal 5-8 [facility] Comment on above: Performed By: #### 7 046726, [id number], [id number], [id number], [id number] #### [facility] (DEFAULT) [address] [place] [address] 22470 UA Protein 100 Abnormal NEGATIVE [facility] Comment on above: Performed By: #### 7 451963, [id number], [id number], [id number], [id number] #### [facility] (DEFAULT) [address] [place] [address] 11128 UA Spec Grav 1.020 Normal 1.001-1.035 [facility] Comment on above: Performed By: #### 7 114983, [id number], [id number], [id number], [id number] #### [facility] (DEFAULT) [address] [place] [address] UA Urobilinogen 0.2 mg/dL Normal 0.2-1.0 [facility] Comment on above: Performed By: #### 7 274239, [id number], [id number], [id number], [id number] #### [facility] (DEFAULT) [address] [place] [address] Urine Source Clean Catch Normal [facility] Comment on above: Performed By: #### 7 169656, [id number], [id number], [id number], [id number] #### [facility] (DEFAULT) [address] [place] [address] UA w/Reflex Cultureon 2024 Bilirubin, SemiQt,Ur Negative Normal NEG [facility] Comment on above: Performed By: #### U AX, UMICAO #### [facility] [employer] [address] [place] [address] Telemarketer: Alejandro Salazar MD Blood, Urine LARGE Abnormal NEG [facility] Comment on above: Performed By: #### U AX, UMICAO #### [facility] [address] [place] [address] Telemarketer: Alejandro Salazar MD Clarity (U) Cloudy Abnormal CLEAR [facility] Comment on above: Performed By: #### U AX, UMICAO #### [facility] [employer] [address] [place] [address] Telemarketer: Alejandro aSlazar MD Color (U) [place] Abnormal YEL [facility] Comment on above: Result Comment: INTE RPRET WITH CAUTION DUE TO INTENSE COLOR OF URINE. Performed By: #### U AX, UMICAO #### [facility] [employer] [address] [place] [address] Telemarketer: Alejandro Salazar MD Glucose Ql (U) Negative Normal NEG [facility] Comment on above: Performed By: #### U AX, UMICAO #### [facility] [employer] [address] [place] [address] Telemarketer: Alejandro Salazar MD Ketones Ql (U) Negative Normal NEG [facility] Comment on above: Performed By: #### U AX, UMICAO #### [facility] [employer] [address] [place] [address] Telemarketer: Alejandro Salazar MD Leukocyte esterase Test strip Ql (U) MODERATE Abnormal NEG [facility] Comment on above: Performed By: #### U AX, UMICAO #### [employer] [facility] [place] [address] Telemarketer: Alejandro Salazar MD Nitrite,Ur Negative Normal NEG [facility] Comment on above: Performed By: #### U AX, UMICAO #### [facility] [address] [place] [address] Telemarketer: Alejandro Salazar MD PH,Ur 6.5 Normal 5.0-8.0 [facility] Comment on above: Performed By: #### U AX, UMICAO #### [facility] [address] [place] [address] Telemarketer: Alejandro Salazar MD Protein Ql (U) 2+ mg/dL Abnormal NEG [facility] Comment on above: Performed By: #### U AX UMICAO #### [facility] [employer] [address] [place] [address] Telemarketer: Alejandro Salazar MD Spec. [place],Ur 1.016 Normal 1.005-1.030 [facility] Comment on above: Performed By: #### U AX UMICAO #### [facility] [address] [place] [address] Telemarketer: Alejandro Salazar MD Urobilinogen,Ur Normal Normal 0.0-1.0 [facility] Comment on above: Performed By: #### U AX, UMICAO #### [employer] [address] [place] [address] Telemarketer: Alejandro Salazar MD Urinalysis with Reflex to Cu ltureon 01-26-2025 Bilirubin Ql (U) Negative NEGATIVE [facility] Clarity (U) Cloudy Abnormal Clear [employer] [employer] [facility] Color (U) [place] Abnormal Yellow [facility] Comment on above: INTERPRET WITH CAUTI ON DUE TO INTENSE COLOR OF URINE. Glucose Test strip (U) [Mass/Vol] Negative NEGATIVE mg/dL [facility] Hemoglobin Auto test strip Ql (U) LARGE Abnormal NEGATIVE [facility] Interpretation and review of laboratory results Abnormal [facility] Ketones (U) [Mass/Vol] Negative NEGATIVE mg/dL [facility] Leukocyte esterase Test strip Ql (U) MODERATE Abnormal NEGATIVE [facility] Nitrite Ql (U) Negative NEGATIVE [facility] pH (U) 6.5 [pH] 5.0 - 8.0 [facility] Protein (U) [Mass/Vol] 2+ Abnormal NEGATIVE mg/dL [facility] Specific gravity (U) [Rel density] 1.016 1.005 - 1.030 [facility] Urobilinogen Qn (U) Normal 0.0 - 1. 0 EU/dL [facility] Urinalysis,Microon 5 Bacteria None Normal NONE [facility] Comment on above: Performed By: #### U AX, UMICAO #### [facility] [employer] [address] [place] [address] Telemarketer: Alejandro Salazar MD Casts 2 TO 5 HYALINE Normal 0-8 [facility] Comment on above: Result Comment: Refe rence range defined for non-centrifuged specimen. Performed By: #### U AX, UMICAO #### [employer] [address] [place] [address] Telemarketer: Alejandro Salazar MD Epithelial cells LM Ql (Urine sed) 2 TO 5 Normal 0-5 [facility] Comment on above: Performed By: #### U AX, UMICAO #### [employer] [address] [place] [address] Telemarketer: Alejandro Salazar MD Urine RBC's TOO NUMEROUS TO COUNT Normal 0-[address] [facility] Comment on above: Result Comment: Refe rence range defined for non-centrifuged specimen. Performed By: #### U AX, UMICAO #### [employer] [address] [place] [address] Telemarketer: Alejandro Salazar MD Urine WBC's 20 TO 50 Normal 0-5 [facility] Comment on above: Performed By: #### U AX, UMFERCHOO #### [address] [address] Telemarketer: Alejandro Salazar MD Cult,Urineon 01-23-2025 Cult,Urine Specimen Description .BLADDER URINE FROM CYSTOSCOPY Special Requests Site: Urine Culture NO GROWTH Report Status FINAL 01/23/2025 Normal [facility] Comment on above: Performed By: #### U RC #### [address] [address] Telemarketer: Alejandro Salazar MD Basic Metabolic Profon 01-22 Anion gap [Moles/Vol] 12 mmol/L Normal 9-16 [facility] Comment on above: Performed By: #### B MP #### [address] [address] Telemarketer: Alejandro Salazar MD Calcium [Mass/Vol] 8.4 mg/dL Low 8.6-10.4 [facility] Comment on above: Performed By: #### B MP #### [address] [address] Telemarketer: Alejandro Salazar MD Chloride [Moles/Vol] 107 mmol/L Normal 98-107 [facility] Comment on above: Performed By: #### B MP #### [address] [address] Telemarketer: Alejandro Salazar MD CO2 [Moles/Vol] 21 mmol/L Normal 20-31 [facility] Comment on above: Performed By: #### B MP #### [address] [address] Telemarketer: Alejandro Salazar MD Creatinine [Mass/Vol] 0.7 mg/dL Normal 0.6-0.9 [facility] Comment on above: Performed By: #### B MP #### [employer] [address] [place] [phone] Telemarketer: Alejandro Salazar MD GFR/1.73 sq M.predicted among non-blacks MDRD (S/P/Bld) [Vol rate/Area] mL/min/{1.73_m2} Normal >60 [facility] Comment on above: Result Comment: These [...] secretion. Performed By: #### B MP #### [employer] [address] [place] [address] Telemarketer: Alejandro Salazar MD Glucose [Mass/Vol] 94 mg/dL Normal 74-99 [facility] Comment on above: Performed By: #### B MP #### [facility] [address] [place] [address] Telemarketer: Alejandro Salazar MD Potassium [Moles/Vol] 4.2 mmol/L Normal 3.7-5.3 [facility] Comment on above: Result Comment: Spec imen hemolysis has exceeded the interference as defined by Denise. Value may be falsely increased. Suggest recollection if clinically indicated. Performed By: #### B MP #### [employer] [address] [place] [address] Telemarketer: Alejandro Salazar MD Sodium [Moles/Vol] 140 mmol/L Normal 136-145 [facility] Comment on above: Performed By: #### B MP #### [employer] [address] [place] [address] [phone] Telemarketer: Alejandro Salazar MD Urea nitrogen [Mass/Vol] 6 mg/dL Normal 6-20 [facility] Comment on above: Performed By: #### B #### [facility] [employer] [address] [place] [address] Telemarketer: Alejandro Salazar MD Basic metabolic panelon Anion [...] Campus Est, Glohayley Lundt Rate - PINF [facility] Comment on above: These results are not [...] [Mass/Vol] 6 mg/dL 6 - 20 mg/dL [facility] CBC with Auto Differentialon 01-22-2025 Basophils (Bld) [#/Vol] 0.03 10*3/uL [facility] Basophils/100 WBC (Bld) 1 % 0 - 2 % [facility] Eosinophils (Bld) [#/Vol] [facility] Eosinophils/100 WBC (Bld) 1 % 1 - 4 % [facility] Erythrocyte distribution width (RBC) [Ratio] 12.5 % 11.8 - 14.4 % [facility] Hematocrit (Bld) [Volume fraction] 36.7 % 36.3 - 47.1 % [facility] Hemoglobin (Bld) [Mass/Vol] 11.8 g/dL Low 11.9 - 15.1 g/dL [facility] Immature granulocytes (Bld) [#/Vol] [facility] Immature granulocytes/100 WBC (Bld) 0 [...] vol] 85.7 fL 82.6 - 102.9 fL [facility] Monocytes/100 WBC (Bld) 9 % [...] Campus WBC other (Bld) [#/Vol] 3.5 [facility] CBC with Diffon 01-22-2025 Abs. Basophil 0.03 k/uL Normal 0.00-0.20 [facility] Comment on above: Performed By: #### C DP #### [address] [address] Telemarketer: Alejandro Salazar MD Abs. Eosinophil <0.03 Normal 0.00-0.44 [facility] Comment on above: Performed By: #### C DP #### [address] [address] Telemarketer: Alejandro Salazar MD Abs.Imm.Granulocyte <0.03 Normal 0.00-0.30 [facility] Comment on above: Performed By: #### C DP #### [address] [address] Telemarketer: Alejandro Salazar MD Abs.Neutrophil (Seg) 1.96 k/uL Normal 1.50-8.10 [facility] Comment on above: Performed By: #### C DP #### [address] [address] Telemarketer: Alejandor Salazar MD Basophils/100 WBC (Bld) 1 % Normal 0-2 [facility] Comment on above: Performed By: #### C DP #### [address] [address] Telemarketer: Alejandro Salazar MD Eosinophils/100 WBC (Bld) 1 % Normal 1-4 [facility] Comment on above: Performed By: #### C DP #### [address] [address] Telemarketer: Alejandro Salazar MD Erythrocyte distribution width (RBC) [Ratio] 12.5 % Normal 11.8-14.4 [facility] Comment on above: Performed By: #### C DP #### [address] [address] Telemarketer: Alejandro Salazar MD Hematocrit (Bld) [Volume fraction] 36.7 % Normal 36.3-47.1 [facility] Comment on above: Performed By: #### C DP #### [address] [address] Telemarketer: Alejandro Salazar MD Hemoglobin (Bld) [Mass/Vol] 11.8 g/dL Low 11.9-15.1 [facility] Comment on above: Performed By: #### C DP #### [address] [address] Telemarketer: Alejandro Salazar MD Immature granulocytes/100 WBC (Bld) 0 % Normal 0 [facility] Comment on above: Performed By: #### C DP #### [address] [address] Telemarketer: Alejandro Salazar MD Lymphocytes (Bld) [#/Vol] 1.19 10*3/uL Normal 1.10-3.70 [facility] Comment on above: Performed By: #### C DP #### [address] [address] Telemarketer: Alejandro Salazar MD Lymphocytes/100 WBC (Bld) 34 % Normal 24-43 [facility] Comment on above: Performed By: #### C DP #### [address] [address] Telemarketer: Alejandro Salazar MD MCH (RBC) [Entitic mass] 27.6 pg Normal 25.2-33.5 [facility] Comment on above: Performed By: #### C DP #### [address] [address] Telemarketer: Alejandro Salazar MD MCHC (RBC) [Mass/Vol] 32.2 g/dL Normal 28.4-34.8 [facility] Comment on above: Performed By: #### C DP #### [address] [address] Telemarketer: Alejandro Salazar MD MCV (RBC) [Entitic vol] 85.7 fL Normal 82.6-102.9 [facility] Comment on above: Performed By: #### C DP #### [place] [address] Telemarketer: Alejandro Salazar MD Monocytes (Bld) [#/Vol] 0.30 10*3/uL Normal 0.10-1.20 [facility] Comment on above: Performed By: #### C DP #### [place] [address] Telemarketer: Alejandro Salazar MD Monocytes/100 WBC (Bld) 9 % Normal 3-12 [facility] Comment on above: Performed By: #### C DP #### [address] [address] Telemarketer: Alejandro Salazar MD Neutrophil (Seg) 55 % Normal 36-65 [facility] Comment on above: Performed By: #### C DP #### [place] [address] Telemarketer: Alejandro Salazar MD NRBC Automated 0.0 per 100 WBC Normal 0.0 [facility] Comment on above: Performed By: #### C DP #### [place] [address] Telemarketer: Alejandro Salazar MD Platelet mean volume (Bld) [Entitic vol] 9.1 fL Normal 8.1-13.5 [facility] Comment on above: Performed By: #### C DP #### [facility] [address] [place] [address] Telemarketer: Alejandro Salazar MD Platelets (Bld) [#/Vol] 217 10*3/uL Normal 138-453 [facility] Comment on above: Performed By: #### C DP #### [facility] [address] [place] [address] Telemarketer: Alejandro Salazar MD RBC (Bld) [#/Vol] 4.28 10*6/uL Normal 3.95-5.11 [facility] Comment on above: Performed By: #### C DP #### [facility] [employer] [address] [place] [address] Telemarketer: Alejandro Salazar MD WBC (Bld) [#/Vol] 3.5 10*3/uL Normal 3.5-11.3 [facility] Comment on above: Performed By: #### C DP #### [facility] [address] [place] [address] Telemarketer: Alejandro Salazar MD FLUORO FOR SURGICAL PROCEDUR ESon 01-22-2025 FLUORO FOR SURGICAL PROCEDURES Radiology exam is complete. No Radiologist dictation. Please follow up with ordering provider. Final result Normal [facility] Guidance-- during surgeryon 01-22-2025 Radiology exam is complete. No Radiologist dictation. Please follow up with ordering provider. PN RIS CONSOLIDATED Lactic Acidon 01-22-2025 Lactic Acid, Whole Blood 1 mmol/L 0.7 - 2.1 mmol/L [facility] Lactic Acid,Whole Bl 1.0 mmol/L Normal 0.7-2.1 [facility] Comment on above: Performed By: #### L ACTIC #### [facility] [address] [place] [address] Telemarketer: Alejandro Salazar MD PREVIOUS SPECIMENon 01-23-20 25 [facility] Urine Cultureon 01-21-2025 Bacteria identified Cx Nom (U) ORGANISM: Escherichia coli (O:ESCCOL) Beccaria Count >100,000 Aerobic ANASTASIA Charge (NMIC56) ---- [...] RESISTANT TO ALL B-LACTAM DRUGS. PERFORMED BY: [place] [address] PATHOLOGIST [employer] DISPATCHER DAVID TIERNEY M.D. Normal [facility] Comment on above: Performed By: #### C UU #### [address] [place] VOIDING URETHROCYSTOGRAM S AND Ion 01-17-2025 [place] VOIDING URETHROCYSTOGRAM S AND I EXAMINATION: VOIDING CYSTO URETHROGRAM 01/17/2025 7:55 am COMPARISON: None. HISTORY: ORDERING SYSTEM PROVIDED HISTORY: VUR (vesicoureteric reflux) TECHNOLOGIST PROVIDED HISTORY: Is the patient ?->No Reason for Exam: frequent UTI, kidney stones FLUOROSCOPY DOSE AND TYPE: Radiation Exposure Index: DAP 184.19oSupi8, FINDINGS: 600 mL of Cystografin was instilled [...] Casey Sharma MD 01/17/25 Final result Normal [facility] [place] VOIDING URETHROCYSTOGRAM S&Ion 01-17-2025 1. No evidence for vesicoureteric reflux. 2. Small postvoid residual. [facility] RIS CONSOLIDATED EXAMINATION: VOIDING CYSTO URETHROGRAM 01/17/2025 7:55 am COMPARISON: None. HISTORY: ORDERING SYSTEM PROVIDED HISTORY: VUR (vesicoureteric reflux) TECHNOLOGIST PROVIDED HISTORY: Is the patient ?->No Reason for Exam: frequent UTI, kidney stones FLUOROSCOPY DOSE AND TYPE: Radiation Exposure Index: DAP 184.55aOzbg9, FINDINGS: 600 mL of Cystografin was instilled [...] the urethra. There is small postvoid residual. [facility] RIS CONSOLIDATED Casey Sharma MD - 01/17/2025 EXAMINATION: VOIDING CYSTO URETHROGRAM 01/17/2025 7:55 am COMPARISON: None. HISTORY: ORDERING SYSTEM PROVIDED HISTORY: VUR (vesicoureteric reflux) TECHNOLOGIST PROVIDED HISTORY: Is the patient ?->No Reason for Exam: frequent UTI, kidney stones FLUOROSCOPY DOSE AND TYPE: Radiation Exposure Index: DAP 184.73rJijn1, FINDINGS: 600 mL of Cystografin was instilled [...] MD 01/16/25 Final result Normal [facility] Urine Cultureon 12-02-2024 Bacteria identified Cx Nom (U) 30,000 colonies/ml mixed bacterial skin contaminants 2 Days PERFORMED BY: [place] [address] PATHOLOGIST [employer] DISP[employer]ER DAVID TIERNEY M.D. Normal [facility] Comment on above: Performed By: #### C UU #### [address] Urine cultureOrdered By: Vicente Snyder on 12-02-2024 Bacteria identified Cx Nom (U) Urine culture [facility] Cholesterol [Mass/volume] in Serum or PlasmaOrdered By: Arnulfo Aviles on 04-09-2024 Cholesterol [Mass/Vol] 150 mg/dL 140-200 [facility] Comment on above: Chol less than 200 m g/dl low riskChol 201-239 mg/dl borderline riskChol 240 mg/dl and greater high risk Cholesterol in LDL Calc [Mas s/Vol]Ordered By: Arnulfo Aviles on 04-09-2024 Cholesterol in LDL [Mass/Vol] 90 mg/dL 0-100 [facility] Comment on above: LDL ATP III CLASSIFI CATIONLDL less than 100 mg/dL OptimalLDL 100-129 mg/dL Near or above optimalLDL 130-159 mg/dL Borderline highLDL 160-189 mg/dL HighLDL greater than 189 mg/dL Very high Cholesterol in VLDL Calc [Ma ss/Vol]Ordered By: Arnulfo Aviles on 04-09-2024 Cholesterol in VLDL [Mass/Vol] 16 mg/dL [facility] Serum or plasma high density lipoprotein (HDL) cholesterol measurementOrdered By: Arnulfo Aviles on 04-09-2024 Cholesterol in HDL [Mass/Vol] 44 mg/dL 23-92 [facility] Comment on above: HDL CHOL ATP-III CLA SSIFICATION Cardiovascular RiskHDL > or equal to 60 mg/dL LOWHDL < 40 mg/dL HIGH Serum or plasma total choles terol/high density lipoprotein (HDL) cholesterol mass ratOrdered By: Arnulfo Aviles on 04-09-2024 Cholesterol.total/Cho lesterol in HDL [Mass ratio] 3.4 {ratio} <5.0 [facility] Thyrotropin [Units/volume] i n Serum or PlasmaOrdered By: Arnulfo Aviles on 04-09-2024 TSH Qn 2.01 m[IU]/L 0.45-5.33 [facility] Triglyceride [Mass/volume] i n Serum or PlasmaOrdered By: Arnulfo Aviles on 04-09-2024 Triglyceride [Mass/Vol] 82 mg/dL 0-149 [facility] Comment on above: TRIG ATP III CLASSIF ICATIONTRIG less than 150 mg/dL NormalTRIG 150-199 mg/dL Borderline highTRIG 200-500 mg/dL High TRIG greater than 500 mg/dL Very highStandard traceable to the Center for Disease Conrtrol and Prevention (CDC) test method. Vitamin D+Metabolites [Mass/ volume] in Serum or PlasmaOrdered By: Arnulfo Aviles on 04-09-2024 Vitamin D+Metabolites [Mass/Vol] 26.2 ng/mL 30-100 [facility] Comment on above: VITAMIN D STATUS 25( [place])VITAMIN D RANGE (ng/mL) Deficient <20 Insufficient 20 to <30Sufficient 30 to 100Reference: José Miguel MF,Jennifer NC, Mady MARTI, et al. Evaluation,treatment, and prevention of vitamin D deficiency; an Endocrine Society clinical practice guideline. JCEM. 2010; 96(7):1911-30. Patient Letter FTon 2023 Patient Letter [facility] December 04, 2023 DIANA BARRIGA [address] [place] [id number] : 1990 Dear Diana, You missed your [...] [facility] [address], [place] [address] [facility] Lab Reportson 06-05-2023 Lab Reports [id number] .00CD:127 [facility] Reminderson 04-24-2023 Reminders - From: [...] with the results. duplicate message [facility] Operative Reporton Operative Report [id number]. 00CD:127 [facility] RAD - MISCon 04-10-2023 RAD - MISC [id number] .00CD:127 [facility] Lab Reportson 04-06-2023 Lab Reports [id number] .00CD:127 [facility] [facility] Lab Reports [id number] .[id number]:127 [facility] Lab Reportson 03-23-2023 Lab Reports [id number] .00CD:127 [facility] Lab Reports [id number] .00CD:127 Normal [facility] Lab Reports [id number] .00CD:127 Normal [facility] RAD - CT Reporton 03-23-2023 RAD - CT Report [id number] .00CD:127 Normal [facility] RAD - CT Report [id number] .00CD:127 Normal [facility] Ambulatory Visit Summaryon 0 03-20-2023 [...] Where: [facility] [address] [place] [address]- Medications What When Instructions Unchanged olanzapine-samidorpha n [...] b (more content not included)... [facility] Consent for Procedure/Surger yon 03-20-2023 Consent for Procedure/Surgery [id number] .00CD:127 [facility] Patient Educationon 03-20-20 23 Patient [...] Spinach (cooked), rhubarb, beets, sweet potatoes, and Cameroonian chard. ? Peanuts. ? Potato chips, croatian fries, and baked potatoes with skin on. ? Nuts and nut products. ? Chocolate. ? If you regularly take a diuretic medicine, make sure to eat at least 1 or 2 servings of fruits or vegetables that are high in potassium each day. These include: ? Avocado. ? Banana. ? [place], prune, carrot, or tomato juice. ? Baked [...] fish oil, or vitamin B6. ? Take eoif-eiu-qkinkkc and prescription medicines only as told by your health care provider. These include supplements. What foods should I limit? Limit your in (more content not included)... Normal [facility] Urology Office/Clinic Noteon 03-20-2023 Urology [...] Lt kidney pain. Did got to the [place] ER. DX'd & treated for UTI. (NEG [...] L. Ox slightly elevated. Pt presented to [facility] ER on 03/06/23 due to L [...] mg qd. SEs discussed. [facility]. -Electrolyte panel 4 weeks to the day [...] MD, URL [facility] [address] [place] [address]- Additional Instructions: schedule R ESWL Patient Education [...] kidney s (more content not included)... Normal [facility] Comment on above: Result Comment: Elec tronically Signed By: Nona RAYGOZA MD\.br\Date and Time Signed: 03/20/23 11:30 EDT\.br\Electronically Co-Signed By: Whitney Collier\.br\Date and Time Co-Signed: 03/20/23 11:28 EDT CBC AUTO DIFFon 02-16-2023 BASO # 0.1 103/ul Normal 0.0-0.1 [facility] Comment on above: Performed By: #### U KJ 24 #### [facility] [address] [address] [address] Ramses Dumas Basophils/100 WBC (Bld) 0.5 % Normal 0.2-2.0 [facility] Comment on above: Performed By: #### U KJ 24 #### [facility] [address] [address] [address] Ramses Dumas EO # 0.0 103/ul Normal 0.0-0.7 [facility] Comment on above: Performed By: #### U JK 24 #### [facility] [address] [place] [address] Dr. Ramses Dumas Eosinophils/100 WBC (Bld) 0.4 % Critically low 0.9-7.0 [facility] Comment on above: Performed By: #### U KJ 24 #### [facility] [address] [place] [address] Dr. Ramses Dumas Erythrocyte distribution width (RBC) [Ratio] 13.7 % Normal 11.0-15.0 [facility] Comment on above: Performed By: #### U KJ 24 #### [facility] [address] [place] [address] Dr. Ramses Dumas Hematocrit (Bld) [Volume fraction] 45.1 % Normal 36.0-48.0 [facility] Comment on above: Performed By: #### U KJ 24 #### [facility] [address] [place] [address] Dr. Ramses Dumas Hemoglobin (Bld) [Mass/Vol] 14.3 g/dL Normal 12.0-16.0 [facility] Comment on above: Performed By: #### U KJ 24 #### [facility] [address] [place] [address] Dr. Ramses Dumas IG # 0.02 10e3/ul Normal 0.00-0.03 [facility] Comment on above: Performed By: #### U KJ 24 #### [facility] [address] [place] [address] Dr. Ramses Dumas IG % 0.2 % Normal 0.0-0.5 [facility] Comment on above: Performed By: #### U KJ 24 #### [facility] [address] [place] [address] Dr. Ramses Dumas LYMPH # 2.5 103/ul Normal 1.2-3.8 [facility] Comment on above: Performed By: #### U KJ 24 #### [facility] [address] [place] [address] Dr. Ramses Dumas Lymphocytes/100 WBC (Bld) 26.4 % Normal 20.5-60.0 [facility] Comment on above: Performed By: #### U KJ 24 #### [facility] [address] [address] [address] Ramses Dumas MANUAL DIFF REQ NO Normal [facility] Comment on above: Performed By: #### U KJ 24 #### [facility] [address] [place] [address] Dr. Ramses Dumas MCH (RBC) [Entitic mass] 25.6 pg Critically low 26.7-34.0 [facility] Comment on above: Performed By: #### U KJ 24 #### [facility] [address] [place] [address] Dr. Ramses Dumas MCHC (RBC) [Mass/Vol] 31.7 g/dL Normal 29.9-35.2 [facility] Comment on above: Performed By: #### U KJ 24 #### [facility] [address] [place] [address] Dr. Ramses Dumas MCV (RBC) [Entitic vol] 80.7 fL Critically low 81.0-99.0 [facility] Comment on above: Performed By: #### U KJ 24 #### [facility] [address] [place] [address] Dr. Ramses Dumas MONO # 0.7 103/ul Normal 0.3-0.8 [facility] Comment on above: Performed By: #### U KJ 24 #### [facility] [address] [place] [address] Dr. Ramses Dumas Monocytes/100 WBC (Bld) 7.6 % Normal 1.7-12.0 [facility] Comment on above: Performed By: #### U KJ 24 #### [facility] [address] [place] [address] Dr. Ramses Dumas NEUT # 6.1 103/ul Normal 1.4-6.5 [facility] Comment on above: Performed By: #### U KJ 24 #### [facility] [address] [place] [address] Dr. Ramses Dumas Neutrophils/100 WBC (Bld) 64.9 % Normal 43.0-75.0 [facility] Comment on above: Performed By: #### U KJ 24 #### [facility] [address] [address] [address] Ramses Dumas Platelet mean volume (Bld) [Entitic vol] 11.0 fL Normal 9.5-13.5 [facility] Comment on above: Performed By: #### U KJ 24 #### [facility] [address] [address] [address] Ramses Dumas PLT 270 103/ul Normal 150-450 [facility] Comment on above: Performed By: #### U KJ 24 #### [facility] [address] [address] [address] Ramses Dumas RBC 5.59 106/ul Critically high 4.20-5.40 [facility] Comment on above: Performed By: #### U KJ 24 #### [facility] [address] [place] [address] Dr. Ramses Dumas WBC 9.4 103/ul Normal 4.0-11.0 [facility] Comment on above: Performed By: #### U KJ 24 #### [facility] [address] [place] [address] ABD/PELV W CONon [...] FARTUN NOVOA Date: 2023-02-16 18:21 Normal [facility] URINE PROFILEon 3 Bilirubin Ql (U) SMALL Abnormal NEGATIVE [facility] Comment on above: Performed By: #### C MP #### [facility] [address] [place] [address] Dr. Ramses Dumas Clarity (U) CLEAR Normal CLEAR [facility] Comment on above: Performed By: #### C MP #### [facility] [address] [place] [address] Dr. Ramses Dumas Color (U) YELLOW Normal YELLOW [facility] Comment on above: Performed By: #### C MP #### [facility] [address] [place] [address] Dr. Ramses Dumas ERUCARLOS ENRIQUE A micrscopic examination will be performed if indicated. Normal [facility] Comment on above: Performed By: #### C MP #### [facility] [address] [place] [address] Dr. Ramses Dumas Glucose Ql (U) Negative Normal NEGATIVE [facility] Comment on above: Performed By: #### C MP #### [facility] [address] [place] [address] Dr. Ramses Dumas Hemoglobin Ql (U) Negative Normal NEGATIVE [facility] Comment on above: Performed By: #### C MP #### [facility] [address] [place] [address] Dr. Ramses Dumas Ketones Ql (U) 40 mg/dl Abnormal NEGATIVE [facility] Comment on above: Performed By: #### C MP #### [facility] [address] [place] [address] Dr. Ramses Dumas LEUKOCYTES SMALL Abnormal NEGATIVE [facility] Comment on above: Performed By: #### C MP #### [facility] [address] [place] [address] Dr. Ramses Dumas Nitrite Ql (U) Negative Normal NEGATIVE [facility] Comment on above: Performed By: #### C MP #### [facility] [address] [place] [address] Dr. Ramses Dumas pH (U) 7.0 [pH] Normal 5-9 [facility] Comment on above: Performed By: #### C MP #### [facility] [address] [place] [address] Dr. Ramses Dumas Protein (U) [Mass/Vol] 30 mg/dL Abnormal NEGATIVE/ TRACE [facility] Comment on above: Performed By: #### C MP #### [facility] [address] [place] [address] Dr. Ramses Dumas SPEC GRAVITY 1.020 Normal 1.005-<=1.02 5 [facility] Comment on above: Performed By: #### C MP #### [facility] [address] [place] [address] Dr. Ramses Dumas UR MICRO IND INDICATED Normal [facility] Comment on above: Performed By: #### C MP #### [facility] [address] [place] [address] Dr. Ramses Dumas Urobilinogen Qn (U) 4 {Lucero'U}/dL Abnormal 0.2 - 1.0 [facility] Comment on above: Performed By: #### C MP #### [facility] [address] [place] [address] Dr. Ramses Dumas LIPASEon 02-16-2023 Lipase [Catalytic activity/Vol] 67.0 U/L Critically low 73.0-393.0 [facility] Comment on above: Performed By: #### U RCX #### [facility] [address] [address] [address] Ramses Dumas LIVER PROFILEon 02-16-2023 Albumin [Mass/Vol] 4.1 g/dL Normal 3.4-5.0 [facility] Comment on above: Performed By: #### U RCX #### [facility] [address] [place] [address] Dr. Ramses Dumas Albumin/Globulin [Mass ratio] 1.0 {ratio} Normal [facility] Comment on above: Performed By: #### U RCX #### [facility] [address] [address] [address] Ramses Dumas ALP [Catalytic activity/Vol] 85 U/L Normal 46-116 [facility] Comment on above: Performed By: #### U RCX #### [facility] [address] [place] [address] Dr. Ramses Dumas ALT [Catalytic activity/Vol] 61 U/L Critically high 14-59 [facility] Comment on above: Performed By: #### U RCX #### [facility] [address] [place] [address] Dr. Ramses Dumas AST [Catalytic activity/Vol] 43 U/L Critically high 15-37 [facility] Comment on above: Performed By: #### U RCX #### [facility] [address] [place] [address] Dr. Ramses Dumas BILI, CONJUGATED 0.1 mg/dL Normal 0.0-0.2 [facility] Comment on above: Performed By: #### U RCX #### [facility] [address] [place] [address] Dr. Ramses Dumas Bilirubin [Mass/Vol] 0.7 mg/dL Normal 0.2-1.0 [facility] Comment on above: Performed By: #### U RCX #### [facility] [address] [place] [address] Dr. Ramses Dumas Globulin (S) [Mass/Vol] 4.2 g/dL Normal [facility] Comment on above: Performed By: #### U RCX #### [facility] [address] [address] [address] Ramses Dumas Protein [Mass/Vol] 8.3 g/dL Critically high 6.4-8.2 [facility] Comment on above: Performed By: #### U RCX #### [facility] [address] [address] [address] Ramses Dumas URon 02-16-2023 , QUAL Negative Normal NEGATIVE [facility] Comment on above: Performed By: #### C MP #### [facility] [address] [place] [address] Dr. Ramses Dumas PROF CHEM 8 (BAS METB)on Anion gap [Moles/Vol] 14.2 mmol/L Normal [facility] Comment on above: Performed By: #### U RCX #### [facility] [address] [place] [address] Dr. Ramses Dumas Calcium [Mass/Vol] 9.5 mg/dL Normal 8.5-10.1 [facility] Comment on above: Performed By: #### U RCX #### [facility] [address] [address] [address] Ramses Dumas Chloride [Moles/Vol] 102 mmol/L Normal 98-107 [facility] Comment on above: Performed By: #### U RCX #### [facility] [address] [place] [address] Dr. Ramses Dumas CO2 [Moles/Vol] 27.5 mmol/L Normal 21.0-32.0 [facility] Comment on above: Performed By: #### U RCX #### [facility] [address] [place] [address] Dr. Ramses Dumas Creatinine [Mass/Vol] 0.71 mg/dL Normal 0.55-1.02 [facility] Comment on above: Performed By: #### U RCX #### [facility] [address] [place] [address] Dr. Ramses Dumas EGFR-AF DOMINICAN >60 Normal >=60 [facility] Comment on above: Performed By: #### U RCX #### [facility] [address] [address] [address] Ramses Dumas EGFR-NON AF DOMINICAN >60 Normal >=60 [facility] Comment on above: Performed By: #### U RCX #### [facility] [address] [address] [address] Ramses Dumas Glucose [Mass/Vol] 90 mg/dL Normal 74-106 [facility] Comment on above: Performed By: #### U RCX #### [facility] [address] [address] [address] Ramses Dumas Potassium [Moles/Vol] 3.7 mmol/L Normal 3.5-5.1 [facility] Comment on above: Performed By: #### U RCX #### [facility] [address] [place] [address] Dr. Ramses Dumas Sodium [Moles/Vol] 140 mmol/L Normal 136-145 [facility] Comment on above: Performed By: #### U RCX #### [facility] [address] [place] [address] Dr. Ramses Dumas Urea nitrogen [Mass/Vol] 6.0 mg/dL Critically low 7.0-18.0 [facility] Comment on above: Performed By: #### U RCX #### [facility] [address] [place] [address] Dr. Ramses Dumas Urea nitrogen/Creatinine [Mass ratio] 8.5 mg/mg Normal [facility] Comment on above: Performed By: #### U RCX #### [facility] [address] [place] [address] Dr. Ramses Dumas URINE MICROSCOPIC ONLYon BACTERIA NONE SEEN Normal NONE SEEN [facility] Comment on above: Performed By: #### U KJ 24 #### [facility] [address] [place] [address] Dr. Ramses Dumas Bacteria identified Cx Nom (U) NOT INDICATED Normal [facility] Comment on above: Performed By: #### U KJ 24 #### [facility] [address] [place] [address] Dr. Ramses Dumas CAST NONE SEEN Normal NONE SEEN [facility] Comment on above: Performed By: #### U KJ 24 #### [facility] [address] [place] [address] Dr. Ramses Dumas Crystals LM Nom (Urine sed) NONE SEEN Normal NONE SEEN [facility] Comment on above: Performed By: #### U KJ 24 #### [facility] [address] [place] [address] Dr. Ramses Dumas Epithelial cells LM Ql (Urine sed) FEW Abnormal NONE SEEN /RARE [facility] Comment on above: Performed By: #### U KJ 24 #### [facility] [address] [place] [address] Dr. Ramses Dumas MUCOUS SMALL Abnormal NONE SEEN [facility] Comment on above: Performed By: #### U KJ 24 #### [facility] [address] [place] [address] Dr. Ramses Dumas RBC NONE SEEN Abnormal 0-2 [facility] Comment on above: Performed By: #### U KJ 24 #### [facility] [address] [place] [address] Dr. Ramses Dumas WBC 0-2 Abnormal NONE SEEN [facility] Comment on above: Performed By: #### U KJ 24 #### [facility] [address] [place] [address] Dr. Ramses Dumas PAP ACOG PANEL 2: 30 to 65on 02-10-2023 . . Normal [facility] Comment on above: Result Comment: Perf ormed at: WB Performed By: #### U RCX #### [facility] [address] [place] [address] Dr. Ramses Dumas Age Gdln ACOG Testing 30-65 Normal [facility] Comment on above: Performed By: #### U RCX #### [facility] [address] [place] [address] Dr. Ramses Dumas DIAGNOSIS: Comment Normal [facility] Comment on above: Result Comment: NEGA TIVE FOR INTRAEPITHELIAL LESION OR MALIGNANCY. REACTIVE CELLULAR CHANGES AND/OR REPAIR ARE PRESENT. Performed at: WB Performed By: #### U RCX #### [facility] [address] [address] [address] Ramses Dumas Electronically signed by: Comment Normal [facility] Comment on above: Result Comment: Chelsey Boston MD, Pathologist Performed at: WB Performed By: #### U RCX #### [facility] [address] [address] [address] Ramses Dumas HPV Aptima Negative Normal Negative [facility] Comment on above: Result Comment: This nucleic acid amplification test detects fourteen high-risk HPV types (16,18,31,33,35,39,45,51,52,56,58,59,66,68) without differentiation. Performed at: =G Performed By: #### U RCX #### [facility] [address] [place] [address] Dr. Ramses Dumas HPV Genotype Reflex Comment Normal [facility] Comment on above: Result Comment: Crit eria not met, HPV Genotype not performed. Performed at: WB Performed By: #### U RCX #### [facility] [address] [place] [address] Dr. Ramses Dumas Methodology: Comment Normal [facility] Comment on above: Result Comment: This liquid based ThinPrep(R) pap test was screened with the use of an image guided system. Performed at: WB Performed By: #### U RCX #### [facility] [address] [place] [address] Dr. Ramses Dumas Note: Comment Normal [facility] Comment on above: Result Comment: The Pap smear is a screening test designed to aid in the detection of premalignant and malignant conditions of the uterine cervix. It is not a diagnostic procedure and should not be used as the sole means of detecting cervical cancer. Both false-positive and false-negative reports do occur. . Performed at: WB Performed By: #### U RCX #### [facility] [address] [place] [address] Dr. Ramses Dumas Performed by: Comment Normal [facility] Comment on above: Result Comment: Cuca Briceno, Client Engagement Manager (ASCP) Performed at: WB Performed By: #### U RCX #### [facility] [address] [address] [address] Ramses Dumas Specimen adequacy: Comment Normal [facility] Comment on above: Result Comment: Sati sfactory for evaluation. Endocervical and/or squamous metaplastic cells (endocervical component) are present. Performed at: WB Performed By: #### U RCX #### [facility] [address] [address] [address] Ramses Dumas Lab Reportson 12-29-2022 Lab Reports [id number] .00CD:127 Normal [facility] RAD - MISCon 12-21-2022 RAD - MISC [id number] .00CD:127 Normal [facility] OXALATE 24HR URINEon 023 Oxalates, Urine 44 mg/L Normal Undefined [facility] Comment on above: Performed By: #### U KJ 24 #### [facility] [address] [place] [address] Dr. Ramses Dumas Oxalates, Urine 24hr 44 mg/24 hr Critically high 4-31 [facility] Comment on above: Performed By: #### U KJ 24 #### [facility] [address] [place] [address] Dr. Ramses Dumas CITRATE URINE 24HRon 023 Citric Acid, U, 24hr 658 mg/24 hr Normal 320-1240 [facility] Comment on above: Result Comment: This test was developed and its performance characteristics determined by [facility]. It has not been cleared or approved by the Food and Drug Administration. Performed By: #### C ITRATU #### [facility] [address] [place] [address] Dr. Ramses Dumas Citric Acid, Urine 658 mg/L Normal Undefined [facility] Comment on above: Performed By: #### C ITRATU #### [facility] [address] [place] [address] Dr. Ramses Dumas MAGNESIUM 24HR URINEon 12-17 Magnesium 24hr Urine 119.0 mg/24 hr Normal 12.0-293.0 [facility] Comment on above: Performed By: #### U RCX #### [facility] [address] [place] [address] Dr. Ramses Dumas Magnesium UR 11.9 mg/dL Normal Not Estab. [facility] Comment on above: Performed By: #### U RCX #### [facility] [address] [place] [address] Dr. Ramses Dumas PHOSPHORUS 24HR URINEon Phosphorus, Urine 81.4 mg/dL Normal Not Estab. [facility] Comment on above: Performed By: #### B LDCX2 #### [facility] [address] [place] [address] Dr. Ramses Dumas Phosphorus, Urine 24hr 814 mg/24 hr Normal 261-1078 [facility] Comment on above: Performed By: #### B LDCX2 #### [facility] [address] [place] [address] Dr. Ramses Dumas PTH INTACTon 12-17-2022 PTH, Intact 46 pg/mL Normal 15-65 [facility] Comment on above: Performed By: #### U RCX #### [facility] [address] [place] [address] Dr. Ramses Dumas URIC ACID 24 HR URINEon Uric Acid, Urine 69.9 mg/dL Normal Not Estab. [facility] Comment on above: Performed By: #### U KJ 24 #### [facility] [address] [place] [address] Dr. Ramses Dumas Uric Acid, Urine 24hr 699.0 mg/24 hr Normal 173.7-902. 1 [facility] Comment on above: Performed By: #### U KJ 24 #### [facility] [address] [place] [address] Dr. Ramses Dumas BUNon 12-16-2022 Urea nitrogen [Mass/Vol] 7.0 mg/dL Normal 7.0-18.0 [facility] Comment on above: Performed By: #### C BC #### [facility] [address] [place] [address] Dr. Ramses Dumas CALCIUMon 12-16-2022 Calcium [Mass/Vol] 8.8 mg/dL Normal 8.5-10.1 [facility] Comment on above: Performed By: #### C BC #### [facility] [address] [place] [address] Dr. Ramses Dumas CALCIUM 24 HR URINEon 2022 CALC, 24 HR UR 295.0 mg/24 hr Normal 100.0-300.0 [facility] Comment on above: Performed By: #### B LDCX2 #### [facility] [address] [place] [address] Dr. Ramses Dumas UR CALCIUM 29.5 mg/dL Critically high 5.1-21.0 [facility] Comment on above: Performed By: #### B LDCX2 #### [facility] [address] [place] [address] Dr. Ramses Dumas CHLORIDEon 12-16-2022 Chloride [Moles/Vol] 105 mmol/L Normal 98-107 [facility] Comment on above: Performed By: #### C BC #### [facility] Laboratory [address] [place] [address] Dr. Ramses Dumas CO2on 12-16-2022 CO2 [Moles/Vol] 26.4 mmol/L Normal 21.0-32.0 [facility] Comment on above: Performed By: #### C MP #### [facility] [address] [place] [address] Dr. Ramses Dumas CREA 24 HR URINEon 3 CREA, 24 HR UR 2337.30 mg/24 hr Critically high 800.00 -1,800 .00 [facility] Comment on above: Performed By: #### C VDTBH #### [facility] [address] [place] [address] Dr. Ramses Dumas URINE CREAT 233.73 mg/dL Normal 20.00-300.00 [facility] Comment on above: Performed By: #### C VDTBH #### [facility] [address] [address] [address] Ramses Dumas CREATININEon 12-16-2022 Creatinine [Mass/Vol] 0.70 mg/dL Normal 0.55-1.02 [facility] Comment on above: Performed By: #### C MP #### [facility] [address] [place] [address] Dr. Ramses Dumas EGFR-AF DOMINICAN >60 Normal >=60 [facility] Comment on above: Performed By: #### C MP #### [facility] [address] [place] [address] Dr. Ramses Dumas EGFR-NON AF DOMINICAN >60 Normal >=60 [facility] Comment on above: Performed By: #### C MP #### [facility] [address] [address] [address] Ramses Dumas NAon 12-16-2022 Sodium [Moles/Vol] 139 mmol/L Normal 136-145 [facility] Comment on above: Performed By: #### C MP #### [facility] [address] [place] [address] Dr. Ramses Dumas POTASSIUMon 12-16-2022 Potassium [Moles/Vol] 4.0 mmol/L Normal 3.5-5.1 [facility] Comment on above: Performed By: #### C MP #### [facility] [address] [place] [address] Dr. Ramses Dumas SODIUM 24 HR URINEon 023 NA, 24 HR UR 193 mmol/24 hr Normal 40-220 [facility] Comment on above: Performed By: #### C VDTBH #### [facility] [address] [place] [address] Dr. Ramses Dumas Sodium (U) [Moles/Vol] 193 mmol/L Critically high 30-90 [facility] Comment on above: Performed By: #### C VDTBH #### [facility] [address] [place] [address] Dr. Ramses Dumas UR TOT VOL 1000 ml/24 HR Normal [facility] Comment on above: Performed By: #### C VDTBH #### [facility] [address] [place] [address] Dr. Ramses Dumas Performed By: #### B LDCX2 #### [facility] [address] [place] [address] Dr. Ramses Dumas URIC ACID SERUMon 12-16-2022 Urate [Mass/Vol] 5.6 mg/dL Normal 2.6-6.0 [facility] Comment on above: Performed By: #### C MP #### [facility] [address] [place] [address] Dr. Ramses Dumas XR KUB 1 VIEWon [...] JENNIFER GATES Date: 2022-12-15 08:26 Normal [facility] CBC AUTO DIFFon 11-07-2022 BASO # 0.0 103/ul Normal 0.0-0.1 [facility] Comment on above: Performed By: #### U RCX #### [facility] [address] [place] [address] Dr. Ramses Dumas Basophils/100 WBC (Bld) 0.7 % Normal 0.2-2.0 [facility] Comment on above: Performed By: #### U RCX #### [facility] [address] [place] [address] Dr. Ramses Dumas EO # 0.1 103/ul Normal 0.0-0.7 [facility] Comment on above: Performed By: #### U RCX #### [facility] [address] [place] [address] Dr. Ramses Dumas Eosinophils/100 WBC (Bld) 1.9 % Normal 0.9-7.0 [facility] Comment on above: Performed By: #### U RCX #### [facility] [address] [place] [address] Dr. Ramses Dumas Erythrocyte distribution width (RBC) [Ratio] 13.6 % Normal 11.0-15.0 [facility] Comment on above: Performed By: #### U RCX #### [facility] [address] [place] [address] Dr. Ramses Dumas Hematocrit (Bld) [Volume fraction] 37.3 % Normal 36.0-48.0 [facility] Comment on above: Performed By: #### U RCX #### [facility] [address] [place] [address] Dr. Ramses Dumas Hemoglobin (Bld) [Mass/Vol] 12.2 g/dL Normal 12.0-16.0 [facility] Comment on above: Performed By: #### U RCX #### [facility] [address] [place] [address] Dr. Ramses Dumas IG # 0.02 10e3/ul Normal 0.00-0.03 [facility] Comment on above: Performed By: #### U RCX #### [facility] [address] [place] [address] Dr. Ramses Dumas IG % 0.3 % Normal 0.0-0.5 [facility] Comment on above: Performed By: #### U RCX #### [facility] [address] [place] [address] Dr. Ramses Dumas LYMPH # 2.3 103/ul Normal 1.2-3.8 [facility] Comment on above: Performed By: #### U RCX #### [facility] [address] [place] [address] Dr. Ramses Dumas Lymphocytes/100 WBC (Bld) 39.6 % Normal 20.5-60.0 [facility] Comment on above: Performed By: #### U RCX #### [facility] [address] [place] [address] Dr. Ramses Dumas MANUAL DIFF REQ NO Normal [facility] Comment on above: Performed By: #### U RCX #### [facility] [address] [address] [address] Ramses Dumas MCH (RBC) [Entitic mass] 26.4 pg Critically low 26.7-34.0 [facility] Comment on above: Performed By: #### U RCX #### [facility] [address] [place] [address] Dr. Ramses Dumas MCHC (RBC) [Mass/Vol] 32.7 g/dL Normal 29.9-35.2 [facility] Comment on above: Performed By: #### U RCX #### [facility] [address] [place] [address] Dr. Ramses Dumas MCV (RBC) [Entitic vol] 80.7 fL Critically low 81.0-99.0 [facility] Comment on above: Performed By: #### U RCX #### [facility] [address] [place] [address] Dr. Ramses Dumas MONO # 0.5 103/ul Normal 0.3-0.8 [facility] Comment on above: Performed By: #### U RCX #### [facility] [address] [place] [address] Dr. Ramses Dumas Monocytes/100 WBC (Bld) 8.0 % Normal 1.7-12.0 [facility] Comment on above: Performed By: #### U RCX #### [facility] [address] [place] [address] Dr. Ramses Dumas NEUT # 2.9 103/ul Normal 1.4-6.5 [facility] Comment on above: Performed By: #### U RCX #### [facility] [address] [place] [address] Dr. Ramses Dumas Neutrophils/100 WBC (Bld) 49.5 % Normal 43.0-75.0 [facility] Comment on above: Performed By: #### U RCX #### [facility] [address] [place] [address] Dr. Ramses Dumas Platelet mean volume (Bld) [Entitic vol] 9.0 fL Critically low 9.5-13.5 [facility] Comment on above: Performed By: #### U RCX #### [facility] [address] [place] [address] Dr. Ramses Dumas PLT 337 103/ul Normal 150-450 [facility] Comment on above: Performed By: #### U RCX #### [facility] [address] [place] [address] Dr. Ramses Dumas RBC 4.62 106/ul Normal 4.20-5.40 [facility] Comment on above: Performed By: #### U RCX #### [facility] [address] [place] [address] Dr. Ramses Dumas WBC 5.9 103/ul Normal 4.0-11.0 [facility] Comment on above: Performed By: #### U RCX #### [facility] [address] [place] [address] Dr. Ramses Dumas POINT OF CARE GLUCOSEon 10-20 Glucose [Mass/Vol] 115 mg/dL Critically high 74-106 [facility] Comment on above: Performed By: #### C VDTBH #### [facility] [address] [place] [address] Dr. Ramses Dumas PREG QUANT HCGon 11-07-2022 HCG QUANT <1 Normal [facility] Comment on above: Performed By: #### C VDTBH #### [facility] [address] [place] [address] Dr. Ramses Dumas HCG RANGE SEE BELOW Normal [facility] Comment on above: Result Comment: 5-50 0.2-1 WEEK 50-500 1-2 WEEKS 100-5,000 2-3 WEEKS 500-10,000 3-4 WEEKS 1,000-50,000 4-5 WEEKS 10,000-100,000 5-6 WEEKS 15,000-200,000 6-8 WEEKS 10,000-100,000 2-3 MONTHS Performed By: #### C VDTBH #### [facility] [address] [place] [address] Dr. Ramses Dumas US PELVIS AND TRANSVAGon [...] cm right ovarian simple cyst Normal [facility] CBC AUTO DIFFon 11-03-2022 BASO # 0.1 103/ul Normal 0.0-0.1 [facility] Comment on above: Performed By: #### U RCX #### [facility] [address] [address] [address] Ramses Dumas Basophils/100 WBC (Bld) 0.8 % Normal 0.2-2.0 [facility] Comment on above: Performed By: #### U RCX #### [facility] [address] [address] [address] Ramses Dumas EO # 0.1 103/ul Normal 0.0-0.7 [facility] Comment on above: Performed By: #### U RCX #### [facility] [address] [address] [address] Ramses Dumas Eosinophils/100 WBC (Bld) 1.4 % Normal 0.9-7.0 [facility] Comment on above: Performed By: #### U RCX #### [facility] [address] [address] [address] Ramses Dumas Erythrocyte distribution width (RBC) [Ratio] 13.4 % Normal 11.0-15.0 [facility] Comment on above: Performed By: #### U RCX #### [facility] [address] [place] [address] Dr. Ramses Dumas Hematocrit (Bld) [Volume fraction] 38.8 % Normal 36.0-48.0 [facility] Comment on above: Performed By: #### U RCX #### [facility] [address] [place] [address] Dr. Ramses Dumas Hemoglobin (Bld) [Mass/Vol] 12.7 g/dL Normal 12.0-16.0 [facility] Comment on above: Performed By: #### U RCX #### [facility] [address] [place] [address] Dr. Ramses Dumas IG # 0.01 10e3/ul Normal 0.00-0.03 [facility] Comment on above: Performed By: #### U RCX #### [facility] [address] [place] [address] Dr. Ramses Dumas IG % 0.1 % Normal 0.0-0.5 [facility] Comment on above: Performed By: #### U RCX #### [facility] [address] [place] [address] Dr. Ramses Dumas LYMPH # 1.9 103/ul Normal 1.2-3.8 [facility] Comment on above: Performed By: #### U RCX #### [facility] [address] [place] [address] Dr. Ramses Dumas Lymphocytes/100 WBC (Bld) 26.4 % Normal 20.5-60.0 [facility] Comment on above: Performed By: #### U RCX #### [facility] [address] [place] [address] Dr. Ramses Dumas MANUAL DIFF REQ NO Normal [facility] Comment on above: Performed By: #### U RCX #### [facility] [address] [place] [address] Dr. Ramses Dumas MCH (RBC) [Entitic mass] 26.3 pg Critically low 26.7-34.0 [facility] Comment on above: Performed By: #### U RCX #### [facility] [address] [address] [address] Ramses Dumas MCHC (RBC) [Mass/Vol] 32.7 g/dL Normal 29.9-35.2 [facility] Comment on above: Performed By: #### U RCX #### [facility] [address] [address] [address] Ramses Dumas MCV (RBC) [Entitic vol] 80.5 fL Critically low 81.0-99.0 [facility] Comment on above: Performed By: #### U RCX #### [facility] [address] [address] [address] Ramses Dumas MONO # 0.6 103/ul Normal 0.3-0.8 [facility] Comment on above: Performed By: #### U RCX #### [facility] [address] [address] [address] Ramses Dumas Monocytes/100 WBC (Bld) 8.2 % Normal 1.7-12.0 [facility] Comment on above: Performed By: #### U RCX #### [facility] [address] [place] [address] Dr. Ramses Dumas NEUT # 4.5 103/ul Normal 1.4-6.5 [facility] Comment on above: Performed By: #### U RCX #### [facility] [address] [address] [address] Ramses Dumas Neutrophils/100 WBC (Bld) 63.1 % Normal 43.0-75.0 [facility] Comment on above: Performed By: #### U RCX #### [facility] [address] [address] [address] Ramses Dumas Platelet mean volume (Bld) [Entitic vol] 8.9 fL Critically low 9.5-13.5 [facility] Comment on above: Performed By: #### U RCX #### [facility] [address] [place] [address] Dr. Ramses Dumas PLT 340 103/ul Normal 150-450 [facility] Comment on above: Performed By: #### U RCX #### [facility] [address] [address] [address] Ramses Dumas RBC 4.82 106/ul Normal 4.20-5.40 [facility] Comment on above: Performed By: #### U RCX #### [facility] [address] [address] [address] Ramses Dumas WBC 7.1 103/ul Normal 4.0-11.0 [facility] Comment on above: Performed By: #### U RCX #### [facility] [address] [address] [address] Ramses Dumas Covid-19 PCR ([facility])on 10-19 SARS-CoV-2 (COVID-19) RNA FRANCESCA+probe Ql (Unsp spec) Not detected Normal NOT DETECTED [facility] Comment on above: Result Comment: This test is not yet approved or cleared by the [place] FDA. When there are no FDA-approved or cleared tests available, and other criteria are met, FDA can make tests available under an emergency access mechanism called an Emergency Use Authorization (EUA). The EUA for this test is supported by the [employer] of Health and Human Service's (HHS's) declaration [...] SARS-CoV-2. Performed By: #### U RCX #### [facility] [address] [place] [address] Dr. Ramses Dumas FREE T4on 11-03-2022 Free T4 [Mass/Vol] 0.99 ng/dL Normal 0.76-1.46 [facility] Comment on above: Performed By: #### B LDCX2 #### [facility] [address] [place] [address] Dr. Ramses Dumas GLYCOHEMOGLOBIN A1Con 2022 ADA RECOMMENDATION SEE BELOW Normal [facility] Comment on above: Result Comment: ADA RECOMMENDED LIMIT 4.0 - 6.0 ADA THERAPEUTIC TARGET < 7.0 ACTION SUGGESTED > 7.0 Performed By: #### C VDTBH #### [facility] [address] [place] [address] Dr. Ramses Dumas Glucose [Mass/Vol] 117 mg/dL Normal [facility] Comment on above: Performed By: #### C VDTBH #### [facility] [address] [place] [address] Dr. Ramses Dumas HbA1c (Bld) [Mass fraction] 5.7 % Normal 4.5-6.2 [facility] Comment on above: Performed By: #### C VDTBH #### [facility] [address] [place] [address] Dr. Ramses Dumas PROTIMEon 11-03-2022 INR Coag (PPP) [Relative time] 0.97 {INR} Normal [facility] Comment on above: Performed By: #### U KJ 24 #### [facility] [address] [place] [address] Dr. Ramses Dumas INR GUIDELINES SEE BELOW Normal [facility] Comment on above: Result Comment: TOÑA RED INR: 2.0 - 3.0 CONDITIONS NOT LISTED BELOW 2.5 - 3.5 FOR PROSTHETIC HEART VALVE REPLACEMENT 2.5 - 3.5 RECURRENT THROMBOSIS Performed By: #### U KJ 24 #### [facility] [address] [place] [address] Dr. Ramses Dumas PT Coag (PPP) [Time] 10.3 s Normal 9.0-11.6 [facility] Comment on above: Performed By: #### U KJ 24 #### [facility] [address] [place] [address] Dr. Ramses Dumas PTTon 11-03-2022 aPTT Coag (Bld) [Time] 27.7 s Normal 22.3-36.2 [facility] Comment on above: Performed By: #### U KJ 24 #### [facility] [address] [address] [address] Ramses Dumas TSHon 11-03-2022 TSH 0.667 uIU/mL Normal 0.358-3.740 [facility] Comment on above: Performed By: #### C VDTBH #### [facility] [address] [address] [address] Ramses Dumas PREG HCG QUALon 09-18-2022 , QUAL Negative Normal NEGATIVE [facility] Comment on above: Performed By: #### U KJ 24 #### [facility] [address] [address] [address] Ramses Dumas Covid-19 PCR ([facility])on 08-20 SARS-CoV-2 (COVID-19) RNA FRANCESCA+probe Ql (Unsp spec) Not detected Normal NOT DETECTED [facility] Comment on above: Result Comment: This test is not yet approved or cleared by the [place] FDA. When there are no FDA-approved or cleared tests available, and other criteria are met, FDA can make tests available under an emergency access mechanism called an Emergency Use Authorization (EUA). The EUA for this test is supported by the [employer] of Health and Human Service's (HHS's) declaration [...] SARS-CoV-2. Performed By: #### C VDTBH #### [facility] [address] [place] [address] Dr. Ramses Dumas CBC AUTO DIFFon 09-05-2022 BASO # 0.1 103/ul Normal 0.0-0.1 [facility] Comment on above: Performed By: #### B LDCX2 #### [facility] [address] [place] [address] Dr. Ramses Dumas Basophils/100 WBC (Bld) 0.7 % Normal 0.2-2.0 [facility] Comment on above: Performed By: #### B LDCX2 #### [facility] [address] [place] [address] Dr. Ramses Dumas EO # 0.2 103/ul Normal 0.0-0.7 [facility] Comment on above: Performed By: #### B LDCX2 #### [facility] [address] [place] [address] Dr. Ramses Dumas Eosinophils/100 WBC (Bld) 2.2 % Normal 0.9-7.0 [facility] Comment on above: Performed By: #### B LDCX2 #### [facility] [address] [place] [address] Dr. Ramses Dumas Erythrocyte distribution width (RBC) [Ratio] 13.9 % Normal 11.0-15.0 [facility] Comment on above: Performed By: #### B LDCX2 #### [facility] [address] [place] [address] Dr. Ramses Dumas Hematocrit (Bld) [Volume fraction] 38.8 % Normal 36.0-48.0 [facility] Comment on above: Performed By: #### B LDCX2 #### [facility] [address] [place] [address] Dr. Ramses Dumas Hemoglobin (Bld) [Mass/Vol] 12.6 g/dL Normal 12.0-16.0 [facility] Comment on above: Performed By: #### B LDCX2 #### [facility] [address] [place] [address] Dr. Ramses Dumas IG # 0.03 10e3/ul Normal 0.00-0.03 [facility] Comment on above: Performed By: #### B LDCX2 #### [facility] [address] [place] [address] Dr. Ramses Dumas IG % 0.3 % Normal 0.0-0.5 [facility] Comment on above: Performed By: #### B LDCX2 #### [facility] [address] [place] [address] Dr. Ramses Dumas LYMPH # 2.3 103/ul Normal 1.2-3.8 [facility] Comment on above: Performed By: #### B LDCX2 #### [facility] [address] [place] [address] Dr. Ramses Dumas Lymphocytes/100 WBC (Bld) 21.3 % Normal 20.5-60.0 [facility] Comment on above: Performed By: #### B LDCX2 #### [facility] [address] [place] [address] Dr. Ramses Dumas MANUAL DIFF REQ NO Normal [facility] Comment on above: Performed By: #### B LDCX2 #### [facility] [address] [place] [address] Dr. Ramses Dumas MCH (RBC) [Entitic mass] 26.4 pg Critically low 26.7-34.0 [facility] Comment on above: Performed By: #### B LDCX2 #### [facility] [address] [place] [address] Dr. Ramses Dumas MCHC (RBC) [Mass/Vol] 32.5 g/dL Normal 29.9-35.2 [facility] Comment on above: Performed By: #### B LDCX2 #### [facility] [address] [place] [address] Dr. Ramses Dumas MCV (RBC) [Entitic vol] 81.2 fL Normal 81.0-99.0 [facility] Comment on above: Performed By: #### B LDCX2 #### [facility] [address] [place] [address] Dr. Ramses Dumas MONO # 0.8 103/ul Normal 0.3-0.8 [facility] Comment on above: Performed By: #### B LDCX2 #### [facility] [address] [place] [address] Dr. Ramses Dumas Monocytes/100 WBC (Bld) 7.4 % Normal 1.7-12.0 [facility] Comment on above: Performed By: #### B LDCX2 #### [facility] [address] [place] [address] Dr. Ramses Dumas NEUT # 7.3 103/ul Critically high 1.4-6.5 [facility] Comment on above: Performed By: #### B LDCX2 #### [facility] [address] [place] [address] Dr. Ramses Dumas Neutrophils/100 WBC (Bld) 68.1 % Normal 43.0-75.0 [facility] Comment on above: Performed By: #### B LDCX2 #### [facility] [address] [place] [address] Dr. Ramses Dumas Platelet mean volume (Bld) [Entitic vol] 8.8 fL Critically low 9.5-13.5 [facility] Comment on above: Performed By: #### B LDCX2 #### [facility] [address] [place] [address] Dr. Ramses Dumas PLT 323 103/ul Normal 150-450 [facility] Comment on above: Performed By: #### B LDCX2 #### [facility] [address] [place] [address] Dr. Ramses Dumas RBC 4.78 106/ul Normal 4.20-5.40 [facility] Comment on above: Performed By: #### B LDCX2 #### [facility] [address] [place] [address] Dr. Ramses Dumas WBC 10.7 103/ul Normal 4.0-11.0 [facility] Comment on above: Performed By: #### B LDCX2 #### [facility] [address] [place] [address] Dr. Ramses Dumas CULTURE URINEon 09-05-2022 CULTURE URINE Culture Observations : LIGHT GROWTH OF MIXED GENITAL DAIANA. NO POTENTIAL PATHOGENS SEEN. Normal [facility] Comment on above: Performed By: #### U RCX #### [facility] [address] [place] [address] Dr. Ramses Dumas ER URINE PROFILEon 2 Bilirubin Ql (U) Negative Normal NEGATIVE [facility] Comment on above: Performed By: #### B LDCX2 #### [facility] [address] [place] [address] Dr. Ramses Dumas Clarity (U) CLOUDY Abnormal CLEAR [facility] Comment on above: Performed By: #### B LDCX2 #### [facility] [address] [place] [address] Dr. Ramses Dumas Color (U) YELLOW Normal YELLOW [facility] Comment on above: Performed By: #### B LDCX2 #### [facility] [address] [place] [address] Dr. Ramses DELEON A micrscopic examination will be performed if indicated. Normal [facility] Comment on above: Performed By: #### B LDCX2 #### [facility] [address] [place] [address] Dr. Ramses Dumas Glucose Ql (U) Negative Normal NEGATIVE [facility] Comment on above: Performed By: #### B LDCX2 #### [facility] [address] [place] [address] Dr. Ramses Dumas Hemoglobin Ql (U) LARGE Abnormal NEGATIVE [facility] Comment on above: Performed By: #### B LDCX2 #### [facility] [address] [place] [address] Dr. Ramses Dumas Ketones Ql (U) Negative Normal NEGATIVE [facility] Comment on above: Performed By: #### B LDCX2 #### [facility] [address] [place] [address] Dr. Ramses Dumas LEUKOCYTES SMALL Abnormal NEGATIVE [facility] Comment on above: Performed By: #### B LDCX2 #### [facility] [address] [place] [address] Dr. Ramses Dumas Nitrite Ql (U) Negative Normal NEGATIVE [facility] Comment on above: Performed By: #### B [id number] #### [facility] [address] [place] [address] Dr. Ramses Dumas pH (U) 6.0 [pH] Normal 5-9 [facility] Comment on above: Performed By: #### B [id number] #### [facility] [address] [place] [address] Dr. Ramses Dumas Protein (U) [Mass/Vol] 100 mg/dL Abnormal NEGATIVE/ TRACE [facility] Comment on above: Performed By: #### B LDCX2 #### [facility] [address] [place] [address] Dr. Ramsse Dumas SPEC GRAVITY >=1.030 Abnormal 1.005-<=1.02 5 [facility] Comment on above: Performed By: #### B [id number] #### [facility] [address] [place] [address] Dr. Ramses Dumas UR MICRO IND INDICATED Normal [facility] Comment on above: Performed By: #### B [id number] #### [facility] [address] [place] [address] Dr. Ramses Dumas Urobilinogen Qn (U) 0.2 {Lucero'U}/dL Normal 0.2 - 1. 0 [facility] Comment on above: Performed By: #### B LDCX2 #### [facility] [address] [place] [address] Dr. Ramses Dumas URon 09-05-2022 , QUAL Negative Normal NEGATIVE [facility] Comment on above: Performed By: #### B [id number] #### [facility] [address] [place] [address] Dr. Ramses Dumas PROF CHEM 8 (BAS METB)on Anion gap [Moles/Vol] 11.7 mmol/L Normal [facility] Comment on above: Performed By: #### C MP #### [facility] [address] [place] [address] Dr. Ramses Dumas Calcium [Mass/Vol] 9.1 mg/dL Normal 8.5-10.1 [facility] Comment on above: Performed By: #### C MP #### [facility] [address] [place] [address] Dr. Ramses Dumas Chloride [Moles/Vol] 103 mmol/L Normal 98-107 [facility] Comment on above: Performed By: #### C MP #### [facility] [address] [address] [address] Ramses Dumas CO2 [Moles/Vol] 25.9 mmol/L Normal 21.0-32.0 [facility] Comment on above: Performed By: #### C MP #### [facility] [address] [address] [address] Ramses Dumas Creatinine [Mass/Vol] 0.77 mg/dL Normal 0.55-1.02 [facility] Comment on above: Performed By: #### C MP #### [facility] [address] [address] [address] Ramses Dumas EGFR-AF DOMINICAN >60 Normal >=60 [facility] Comment on above: Performed By: #### C MP #### [facility] [address] [address] [address] Ramses Dumas EGFR-NON AF DOMINICAN >60 Normal >=60 [facility] Comment on above: Performed By: #### C MP #### [facility] [address] [address] [address] Ramses Dumas Glucose [Mass/Vol] 124 mg/dL Critically high 74-106 [facility] Comment on above: Performed By: #### C MP #### [facility] [address] [address] [address] Ramses Dumas Potassium [Moles/Vol] 3.6 mmol/L Normal 3.5-5.1 [facility] Comment on above: Performed By: #### C MP #### [facility] [address] [address] [address] Ramses Dumas Sodium [Moles/Vol] 137 mmol/L Normal 136-145 [facility] Comment on above: Performed By: #### C MP #### [facility] [address] [address] [address] Ramses Dumas Urea nitrogen [Mass/Vol] 12.0 mg/dL Normal 7.0-18.0 [facility] Comment on above: Performed By: #### C MP #### [facility] [address] [address] [address] Ramses Dumas Urea nitrogen/Creatinine [Mass ratio] 15.6 mg/mg Normal [facility] Comment on above: Performed By: #### C MP #### [facility] [address] [place] [address] Dr. Ramses Dumas URINE MICROSCOPIC ONLYon AMORPHOUS CRYSTALS RARE Normal [facility] Comment on above: Performed By: #### B [id number] #### [facility] [address] [place] [address] Dr. Ramses Dumas BACTERIA TRACE Abnormal NONE SEEN [facility] Comment on above: Performed By: #### B LDCX2 #### [facility] [address] [place] [address] Dr. Ramses Dumas Bacteria identified Cx Nom (U) INDICATED Normal [facility] Comment on above: Performed By: #### B [id number] #### [facility] [address] [place] [address] Dr. Ramses Dumas CA OX CRYSTALS RARE Normal [facility] Comment on above: Performed By: #### B [id number] #### [facility] [address] [place] [address] Dr. Ramses Dumas CAST NONE SEEN Normal NONE SEEN [facility] Comment on above: Performed By: #### B [id number] #### [facility] [address] [place] [address] Dr. Ramses Dumas Crystals LM Nom (Urine sed) SEEN Abnormal NONE SEEN [facility] Comment on above: Performed By: #### B LDCX2 #### [facility] [address] [address] [address] Ramses Dumas Epithelial cells LM Ql (Urine sed) FEW Abnormal NONE SEEN /RARE [facility] Comment on above: Performed By: #### B LDCX2 #### [facility] [address] [place] [address] Dr. Ramses Dumas MUCOUS TRACE Abnormal NONE SEEN [facility] Comment on above: Performed By: #### B LDCX2 #### [facility] [address] [address] [address] Ramses Dumas RBC 50-75 Abnormal 0-2 [facility] Comment on above: Performed By: #### B LDCX2 #### [facility] [address] [place] [address] Dr. Ramses Dumas WBC 20-50 Abnormal NONE SEEN [facility] Comment on above: Performed By: #### B LDCX2 #### [facility] [address] [address] [address] Ramses Dumas YEAST PRESENT Abnormal NONE SEEN [facility] Comment on above: Performed By: #### B [id number] #### [facility] [address] [place] [address] Dr. Ramses Dumas US KIDNEYSon 09-05-2022 US [...] GLEN PEREZ Date: 2022-09-05 11:00 Normal [facility] CT ABD/PELVIS WO CONon 08-29 CT [...] ERICKA IGLESIAS Date: 2022-08-29 01:10 Normal [facility] CULTURE URINEon 08-29-2022 CULTURE URINE Culture Observations : LIGHT GROWTH OF MIXED GENITAL DAIANA. NO POTENTIAL PATHOGENS SEEN. Normal [facility] Comment on above: Performed By: #### U RCX #### [facility] [address] [place] [address] Dr. Ramses Dumas CBC AUTO DIFFon 08-28-2022 BASO # 0.1 103/ul Normal 0.0-0.1 [facility] Comment on above: Performed By: #### U RCX #### [facility] [address] [address] [address] Ramses Dumas Basophils/100 WBC (Bld) 0.5 % Normal 0.2-2.0 [facility] Comment on above: Performed By: #### U RCX #### [facility] [address] [place] [address] Dr. Ramses Dumas EO # 0.3 103/ul Normal 0.0-0.7 [facility] Comment on above: Performed By: #### U RCX #### [facility] [address] [address] [address] Ramses Dumas Eosinophils/100 WBC (Bld) 2.3 % Normal 0.9-7.0 [facility] Comment on above: Performed By: #### U RCX #### [facility] [address] [place] [address] Dr. Ramses Dumas Erythrocyte distribution width (RBC) [Ratio] 13.7 % Normal 11.0-15.0 [facility] Comment on above: Performed By: #### U RCX #### [facility] [address] [place] [address] Dr. Ramses Dumas Hematocrit (Bld) [Volume fraction] 36.7 % Normal 36.0-48.0 [facility] Comment on above: Performed By: #### U RCX #### [facility] [address] [place] [address] Dr. Ramses Dumas Hemoglobin (Bld) [Mass/Vol] 12.3 g/dL Normal 12.0-16.0 [facility] Comment on above: Performed By: #### U RCX #### [facility] [address] [place] [address] Dr. Ramses Dumas IG # 0.16 10e3/ul Critically high 0.00-0.03 [facility] Comment on above: Performed By: #### U RCX #### [facility] [address] [place] [address] Dr. Ramses Dumas IG % 1.1 % Critically high 0.0-0.5 [facility] Comment on above: Performed By: #### U RCX #### [facility] [address] [place] [address] Dr. Ramses Dumas LYMPH # 4.6 103/ul Critically high 1.2-3.8 [facility] Comment on above: Performed By: #### U RCX #### [facility] [address] [place] [address] Dr. Ramses Dumas Lymphocytes/100 WBC (Bld) 31.8 % Normal 20.5-60.0 [facility] Comment on above: Performed By: #### U RCX #### [facility] [address] [place] [address] Dr. Ramses Dumas MANUAL DIFF REQ NO Normal [facility] Comment on above: Performed By: #### U RCX #### [facility] [address] [place] [address] Dr. Ramses Dumas MCH (RBC) [Entitic mass] 26.9 pg Normal 26.7-34.0 [facility] Comment on above: Performed By: #### U RCX #### [facility] [address] [place] [address] Dr. Ramses Dumas MCHC (RBC) [Mass/Vol] 33.5 g/dL Normal 29.9-35.2 [facility] Comment on above: Performed By: #### U RCX #### [facility] [address] [place] [address] Dr. Ramses Dumas MCV (RBC) [Entitic vol] 80.3 fL Critically low 81.0-99.0 [facility] Comment on above: Performed By: #### U RCX #### [facility] [address] [place] [address] Dr. Ramses Dumas MONO # 1.0 103/ul Critically high 0.3-0.8 [facility] Comment on above: Performed By: #### U RCX #### [facility] [address] [place] [address] Dr. Ramses Dumas Monocytes/100 WBC (Bld) 7.0 % Normal 1.7-12.0 [facility] Comment on above: Performed By: #### U RCX #### [facility] [address] [place] [address] Dr. Ramses Dumas NEUT # 8.2 103/ul Critically high 1.4-6.5 [facility] Comment on above: Performed By: #### U RCX #### [facility] [address] [place] [address] Dr. Ramses Dumas Neutrophils/100 WBC (Bld) 57.3 % Normal 43.0-75.0 [facility] Comment on above: Performed By: #### U RCX #### [facility] [address] [place] [address] Dr. Ramses Dumas Platelet mean volume (Bld) [Entitic vol] 8.6 fL Critically low 9.5-13.5 [facility] Comment on above: Performed By: #### U RCX #### [facility] [address] [place] [address] Dr. Ramses Dumas PLT 395 103/ul Normal 150-450 [facility] Comment on above: Performed By: #### U RCX #### [facility] [address] [place] [address] Dr. Ramses Dumas RBC 4.57 106/ul Normal 4.20-5.40 [facility] Comment on above: Performed By: #### U RCX #### [facility] [address] [place] [address] Dr. Ramses Dumas WBC 14.3 103/ul Critically high 4.0-11.0 [facility] Comment on above: Performed By: #### U RCX #### [facility] [address] [place] [address] Dr. Ramses KUMAR URINE PROFILEon 2 Bilirubin Ql (U) Negative Normal NEGATIVE [facility] Comment on above: Performed By: #### U KJ 24 #### [facility] [address] [place] [address] Dr. Ramses Dumas Clarity (U) CLEAR Normal CLEAR [facility] Comment on above: Performed By: #### U KJ 24 #### [facility] [address] [place] [address] Dr. Ramses Dumas Color (U) LT. YELLOW Normal YELLOW [facility] Comment on above: Performed By: #### U KJ 24 #### [facility] [address] [place] [address] Dr. Ramses Dumas ERUAHWalter A micrscopic examination will be performed if indicated. Normal [facility] Comment on above: Performed By: #### U KJ 24 #### [facility] [address] [address] [address] Ramses Dumas Glucose Ql (U) Negative Normal NEGATIVE [facility] Comment on above: Performed By: #### U KJ 24 #### [facility] [address] [place] [address] Dr. Ramses Dumas Hemoglobin Ql (U) LARGE Abnormal NEGATIVE [facility] Comment on above: Performed By: #### U KJ 24 #### [facility] [address] [place] [address] Dr. Ramses Dumas Ketones Ql (U) Negative Normal NEGATIVE [facility] Comment on above: Performed By: #### U KJ 24 #### [facility] [address] [place] [address] Dr. Ramses Dumas LEUKOCYTES MODERATE Abnormal NEGATIVE [facility] Comment on above: Performed By: #### U KJ 24 #### [facility] [address] [place] [address] Dr. Ramses Dumas Nitrite Ql (U) Negative Normal NEGATIVE [facility] Comment on above: Performed By: #### U KJ 24 #### [facility] [address] [place] [address] Dr. Ramses Dumas pH (U) 6.5 [pH] Normal 5-9 [facility] Comment on above: Performed By: #### U KJ 24 #### [facility] [address] [place] [address] Dr. Ramses Dumas Protein (U) [Mass/Vol] 100 mg/dL Abnormal NEGATIVE/ TRACE [facility] Comment on above: Performed By: #### U KJ 24 #### [facility] [address] [place] [address] Dr. Ramses Dumas SPEC GRAVITY 1.020 Normal 1.005-<=1.02 5 [facility] Comment on above: Performed By: #### U KJ 24 #### [facility] [address] [place] [address] Dr. Ramses Dumas UR MICRO IND INDICATED Normal [facility] Comment on above: Performed By: #### U KJ 24 #### [facility] [address] [place] [address] Dr. Ramses Dumas Urobilinogen Qn (U) 0.2 {Lucero'U}/dL Normal 0.2 - 1. 0 [facility] Comment on above: Performed By: #### U KJ 24 #### [facility] [address] [place] [address] Dr. Ramses Dumas PROF 14(COMP METB)on 022 Albumin [Mass/Vol] 3.3 g/dL Critically low 3.4-5.0 [facility] Comment on above: Performed By: #### C MP #### [facility] [address] [place] [address] Dr. Ramses Dumas Albumin/Globulin [Mass ratio] 0.8 {ratio} Normal [facility] Comment on above: Performed By: #### C MP #### [facility] [address] [place] [address] Dr. Ramses Dumas ALP [Catalytic activity/Vol] 108 U/L Normal 46-116 [facility] Comment on above: Performed By: #### C MP #### [facility] [address] [place] [address] Dr. Ramses Dumas ALT [Catalytic activity/Vol] 103 U/L Critically high 14-59 [facility] Comment on above: Performed By: #### C MP #### [facility] [address] [place] [address] Dr. Ramses Dumas Anion gap [Moles/Vol] 6.6 mmol/L Normal [facility] Comment on above: Performed By: #### C MP #### [facility] [address] [place] [address] Dr. Rmases Dumas AST [Catalytic activity/Vol] 21 U/L Normal 15-37 [facility] Comment on above: Performed By: #### C MP #### [facility] [address] [place] [address] Dr. Ramses Dumas Bilirubin [Mass/Vol] 0.2 mg/dL Normal 0.2-1.0 [facility] Comment on above: Performed By: #### C MP #### [facility] [address] [place] [address] Dr. Ramses Dumas Calcium [Mass/Vol] 9.2 mg/dL Normal 8.5-10.1 [facility] Comment on above: Performed By: #### C MP #### [facility] [address] [address] [address] Ramses Dumas Chloride [Moles/Vol] 102 mmol/L Normal 98-107 [facility] Comment on above: Performed By: #### C MP #### [facility] [address] [address] [address] Ramses Dumas CO2 [Moles/Vol] 28.8 mmol/L Normal 21.0-32.0 [facility] Comment on above: Performed By: #### C MP #### [facility] [address] [place] [address] Dr. Rasmes Dumas Creatinine [Mass/Vol] 0.92 mg/dL Normal 0.55-1.02 [facility] Comment on above: Performed By: #### C MP #### [facility] [address] [place] [address] Dr. Ramses Dumas EGFR-AF DOMINICAN >60 Normal >=60 [facility] Comment on above: Performed By: #### C MP #### [facility] [address] [place] [address] Dr. Ramses Dumas EGFR-NON AF DOMINICAN >60 Normal >=60 [facility] Comment on above: Performed By: #### C MP #### [facility] [address] [place] [address] Dr. Ramses Dumas Globulin (S) [Mass/Vol] 4.1 g/dL Normal [facility] Comment on above: Performed By: #### C MP #### [facility] [address] [address] [address] Ramses Dumas Glucose [Mass/Vol] 114 mg/dL Critically high 74-106 [facility] Comment on above: Performed By: #### C MP #### [facility] [address] [place] [address] Dr. Ramses Dumas Potassium [Moles/Vol] 3.4 mmol/L Critically low 3.5-5.1 [facility] Comment on above: Performed By: #### C MP #### [facility] [address] [address] [address] Ramses Dumas Protein [Mass/Vol] 7.4 g/dL Normal 6.4-8.2 [facility] Comment on above: Performed By: #### C MP #### [facility] [address] [address] [address] Ramses Dmuas Sodium [Moles/Vol] 134 mmol/L Critically low 136-145 [facility] Comment on above: Performed By: #### C MP #### [facility] [address] [address] [address] Ramses Dumas Urea nitrogen [Mass/Vol] 11.0 mg/dL Normal 7.0-18.0 [facility] Comment on above: Performed By: #### C MP #### [facility] [address] [place] [address] Dr. Ramses Dumas Urea nitrogen/Creatinine [Mass ratio] 12.0 mg/mg Normal [facility] Comment on above: Performed By: #### C MP #### [facility] [address] [place] [address] Dr. Ramses Dumas URINE MICROSCOPIC ONLYon BACTERIA MODERATE Abnormal NONE SEEN [facility] Comment on above: Performed By: #### U KJ 24 #### [facility] [address] [place] [address] Dr. Ramses Dumas Bacteria identified Cx Nom (U) INDICATED Normal [facility] Comment on above: Performed By: #### U KJ 24 #### [facility] [address] [place] [address] Dr. Ramses Dumas CAST NONE SEEN Normal NONE SEEN [facility] Comment on above: Performed By: #### U KJ 24 #### [facility] [address] [place] [address] Dr. Ramses Dumas Crystals LM Nom (Urine sed) NONE SEEN Normal NONE SEEN [facility] Comment on above: Performed By: #### U KJ 24 #### [facility] [address] [place] [address] Dr. Ramses Dumas Epithelial cells LM Ql (Urine sed) RARE Normal NONE SEEN /RARE [facility] Comment on above: Performed By: #### U KJ 24 #### [facility] [address] [place] [address] Dr. Ramses Dumas MUCOUS NONE SEEN Normal NONE SEEN [facility] Comment on above: Performed By: #### U KJ 24 #### [facility] [address] [place] [address] Dr. Ramses Dumas RBC 20-50 Abnormal 0-2 [facility] Comment on above: Performed By: #### U KJ 24 #### [facility] [address] [place] [address] Dr. Ramses Dumas WBC 5-10 Abnormal NONE SEEN [facility] Comment on above: Performed By: #### U KJ 24 #### [facility] [address] [place] [address] Dr. Ramses Dumas CULTURE BLOODon 08-25-2022 Microscopic [...] F Tetracycline >=16 R F Normal [facility] Comment on above: Performed By: #### B LDCX2 #### [facility] [address] [place] [address] Dr. Ramses Dumas Microscopic examination of blood, [...] F Tetracycline >=16 R F Normal [facility] Comment on above: Performed By: #### C BC #### [facility] [address] [place] [address] Dr. Ramses Dumas CBC AUTO DIFFon 08-24-2022 BASO # 0.0 103/ul Normal 0.0-0.1 [facility] Comment on above: Performed By: #### C BC #### [facility] [address] [place] [address] Dr. Ramses Dumas Basophils/100 WBC (Bld) 0.1 % Critically low 0.2-2.0 [facility] Comment on above: Performed By: #### C BC #### [facility] [address] [place] [address] Dr. Ramses Dumas EO # 0.0 103/ul Normal 0.0-0.7 [facility] Comment on above: Performed By: #### C BC #### [facility] [address] [place] [address] Dr. Ramses Dumas Eosinophils/100 WBC (Bld) 0.0 % Critically low 0.9-7.0 [facility] Comment on above: Performed By: #### C BC #### [facility] [address] [place] [address] Dr. Ramses Dumas Erythrocyte distribution width (RBC) [Ratio] 13.5 % Normal 11.0-15.0 [facility] Comment on above: Performed By: #### C BC #### [facility] [address] [place] [address] Dr. Ramses Dumas Hematocrit (Bld) [Volume fraction] 33.0 % Critically low 36.0-48.0 [facility] Comment on above: Performed By: #### C BC #### [facility] [address] [address] [address] Ramses Dumas Hemoglobin (Bld) [Mass/Vol] 10.7 g/dL Critically low 12.0-16.0 [facility] Comment on above: Performed By: #### C BC #### [facility] [address] [address] [address] Ramses Dumas IG # 0.04 10e3/ul Critically high 0.00-0.03 [facility] Comment on above: Performed By: #### C BC #### [facility] [address] [place] [address] Dr. Ramses Dumas IG % 0.4 % Normal 0.0-0.5 [facility] Comment on above: Performed By: #### C BC #### [facility] [address] [place] [address] Dr. Ramses Dumas LYMPH # 0.8 103/ul Critically low 1.2-3.8 [facility] Comment on above: Performed By: #### C BC #### [facility] [address] [place] [address] Dr. Ramses Dumas Lymphocytes/100 WBC (Bld) 7.9 % Critically low 20.5-60.0 [facility] Comment on above: Performed By: #### C BC #### [facility] [address] [place] [address] Dr. Ramses Dumas MANUAL DIFF REQ NO Normal [facility] Comment on above: Performed By: #### C BC #### [facility] [address] [place] [address] Dr. Ramses Dumas MCH (RBC) [Entitic mass] 26.5 pg Critically low 26.7-34.0 [facility] Comment on above: Performed By: #### C BC #### [facility] [address] [place] [address] Dr. Ramses Dumas MCHC (RBC) [Mass/Vol] 32.4 g/dL Normal 29.9-35.2 [facility] Comment on above: Performed By: #### C BC #### [facility] [address] [place] [address] Dr. Ramses Dumas MCV (RBC) [Entitic vol] 81.7 fL Normal 81.0-99.0 [facility] Comment on above: Performed By: #### C BC #### [facility] [address] [place] [address] Dr. Ramses Dumas MONO # 0.6 103/ul Normal 0.3-0.8 [facility] Comment on above: Performed By: #### C BC #### [facility] [address] [place] [address] Dr. Ramses Dumas Monocytes/100 WBC (Bld) 6.3 % Normal 1.7-12.0 [facility] Comment on above: Performed By: #### C BC #### [facility] [address] [place] [address] Dr. Ramses Dumas NEUT # 8.6 103/ul Critically high 1.4-6.5 [facility] Comment on above: Performed By: #### C BC #### [facility] [address] [place] [address] Dr. Ramses Dumas Neutrophils/100 WBC (Bld) 85.3 % Critically high 43.0-75.0 [facility] Comment on above: Performed By: #### C BC #### [facility] [address] [place] [address] Dr. Ramses Dumas Platelet mean volume (Bld) [Entitic vol] 9.1 fL Critically low 9.5-13.5 [facility] Comment on above: Performed By: #### C BC #### [facility] [address] [place] [address] Dr. Ramses Dumas PLT 248 103/ul Normal 150-450 [facility] Comment on above: Performed By: #### C BC #### [facility] [address] [place] [address] Dr. Ramses Dumas RBC 4.04 106/ul Critically low 4.20-5.40 [facility] Comment on above: Performed By: #### C BC #### [facility] [address] [place] [address] Dr. Ramses Dumas WBC 10.1 103/ul Normal 4.0-11.0 [facility] Comment on above: Performed By: #### C BC #### [facility] [address] [place] [address] Dr. Ramses Dumas CULTURE URINEon 08-24-2022 CULTURE [...] S F Tetracycline >=16 R F Normal [facility] Comment on above: Performed By: #### U RCX #### [facility] [address] [place] [address] Dr. Ramses Dumas PROF 14(COMP METB)on 022 Albumin [Mass/Vol] 2.4 g/dL Critically low 3.4-5.0 Th [facility] Comment on above: Performed By: #### C VDTBH #### [facility] [address] [place] [address] Dr. Ramses Dumas Albumin/Globulin [Mass ratio] 0.7 {ratio} Normal [facility] Comment on above: Performed By: #### C VDTBH #### [facility] [address] [place] [address] Dr. Ramses Dumas ALP [Catalytic activity/Vol] 95 U/L Normal 46-116 [facility] Comment on above: Performed By: #### C VDTBH #### [facility] [address] [place] [address] Dr. Ramses Dumas ALT [Catalytic activity/Vol] 327 U/L Critically high 14-59 [facility] Comment on above: Performed By: #### C VDTBH #### [facility] [address] [place] [address] Dr. Ramses Dumas Anion gap [Moles/Vol] 8.7 mmol/L Normal [facility] Comment on above: Performed By: #### C VDTBH #### [facility] [address] [place] [address] Dr. Ramses Dumas AST [Catalytic activity/Vol] 165 U/L Critically high 15-37 [facility] Comment on above: Performed By: #### C VDTBH #### [facility] [address] [place] [address] Dr. Ramses Dumas Bilirubin [Mass/Vol] 0.4 mg/dL Normal 0.2-1.0 [facility] Comment on above: Performed By: #### C VDTBH #### [facility] [address] [place] [address] Dr. Ramses Dumas Calcium [Mass/Vol] 8.0 mg/dL Critically low 8.5-10.1 Th [facility] Comment on above: Performed By: #### C VDTBH #### [facility] [address] [place] [address] Dr. Ramses Dumas Chloride [Moles/Vol] 108 mmol/L Critically high 98-107 [facility] Comment on above: Performed By: #### C VDTBH #### [facility] [address] [place] [address] Dr. Ramses Dumas CO2 [Moles/Vol] 25.3 mmol/L Normal 21.0-32.0 [facility] Comment on above: Performed By: #### C VDTBH #### [facility] [address] [place] [address] Dr. Ramses Dumas Creatinine [Mass/Vol] 0.70 mg/dL Normal 0.55-1.02 [facility] Comment on above: Performed By: #### C VDTBH #### [facility] [address] [place] [address] Dr. Ramses Dumas EGFR-AF DOMINICAN >60 Normal >=60 [facility] Comment on above: Performed By: #### C VDTBH #### [facility] [address] [place] [address] Dr. Ramses Dumas EGFR-NON AF DOMINICAN >60 Normal >=60 [facility] Comment on above: Performed By: #### C VDTBH #### [facility] [address] [place] [address] Dr. Ramses Dumas Globulin (S) [Mass/Vol] 3.6 g/dL Normal [facility] Comment on above: Performed By: #### C VDTBH #### [facility] [address] [place] [address] Dr. Ramses Dumas Glucose [Mass/Vol] 160 mg/dL Critically high 74-106 T [facility] Comment on above: Performed By: #### C VDTBH #### [facility] [address] [place] [address] Dr. Ramses Dumas Potassium [Moles/Vol] 4.0 mmol/L Normal 3.5-5.1 [facility] Comment on above: Performed By: #### C VDTBH #### [facility] [address] [place] [address] Dr. Ramses Dumas Protein [Mass/Vol] 6.0 g/dL Critically low 6.4-8.2 Th [facility] Comment on above: Performed By: #### C VDTBH #### [facility] [address] [place] [address] Dr. Ramses Dumas Sodium [Moles/Vol] 138 mmol/L Normal 136-145 [facility] Comment on above: Performed By: #### C VDTBH #### [facility] [address] [place] [address] Dr. Ramses Dumas Urea nitrogen [Mass/Vol] 6.0 mg/dL Critically low 7.0-18.0 [facility] Comment on above: Performed By: #### C VDTBH #### [facility] [address] [place] [address] Dr. Ramses Dumas Urea nitrogen/Creatinine [Mass ratio] 8.6 mg/mg Normal [facility] Comment on above: Performed By: #### C VDTBH #### [facility] [address] [place] [address] Dr. Ramses Dumas CBC AUTO DIFFon 08-23-2022 BASO # 0.0 103/ul Normal 0.0-0.1 [facility] Comment on above: Performed By: #### U RCX #### [facility] [address] [place] [address] Dr. Ramses Dumas Basophils/100 WBC (Bld) 0.2 % Normal 0.2-2.0 [facility] Comment on above: Performed By: #### U RCX #### [facility] [address] [place] [address] Dr. Ramses Dumas EO # 0.0 103/ul Normal 0.0-0.7 [facility] Comment on above: Performed By: #### U RCX #### [facility] [address] [place] [address] Dr. Ramses Dumas Eosinophils/100 WBC (Bld) 0.1 % Critically low 0.9-7.0 [facility] Comment on above: Performed By: #### U RCX #### [facility] [address] [place] [address] Dr. Ramses Dumas Erythrocyte distribution width (RBC) [Ratio] 13.4 % Normal 11.0-15.0 [facility] Comment on above: Performed By: #### U RCX #### [facility] [address] [place] [address] Dr. Ramses Dumas Hematocrit (Bld) [Volume fraction] 34.1 % Critically low 36.0-48.0 [facility] Comment on above: Performed By: #### U RCX #### [facility] [address] [place] [address] Dr. Ramses Dumas Hemoglobin (Bld) [Mass/Vol] 10.9 g/dL Critically low 12.0-16.0 [facility] Comment on above: Performed By: #### U RCX #### [facility] [address] [place] [address] Dr. Ramses Dumas IG # 0.02 10e3/ul Normal 0.00-0.03 [facility] Comment on above: Performed By: #### U RCX #### [facility] [address] [address] [address] Ramses Dumas IG % 0.2 % Normal 0.0-0.5 [facility] Comment on above: Performed By: #### U RCX #### [facility] [address] [address] [address] Ramses Dumas LYMPH # 0.7 103/ul Critically low 1.2-3.8 The [facility] Comment on above: Performed By: #### U RCX #### [facility] [address] [address] [address] Ramses Dumas Lymphocytes/100 WBC (Bld) 6.9 % Critically low 20.5-60.0 [facility] Comment on above: Performed By: #### U RCX #### [facility] [address] [address] [address] Ramses Dumas MANUAL DIFF REQ NO Normal [facility] Comment on above: Performed By: #### U RCX #### [facility] [address] [address] [address] Ramses Dumas MCH (RBC) [Entitic mass] 26.1 pg Critically low 26.7-34.0 [facility] Comment on above: Performed By: #### U RCX #### [facility] [address] [address] [address] Ramses Dumas MCHC (RBC) [Mass/Vol] 32.0 g/dL Normal 29.9-35.2 [facility] Comment on above: Performed By: #### U RCX #### [facility] [address] [address] [address] Ramses Dumas MCV (RBC) [Entitic vol] 81.8 fL Normal 81.0-99.0 [facility] Comment on above: Performed By: #### U RCX #### [facility] [address] [address] [address] Ramses Dumas MONO # 0.6 103/ul Normal 0.3-0.8 [facility] Comment on above: Performed By: #### U RCX #### [facility] [address] [address] [address] Ramses Dumas Monocytes/100 WBC (Bld) 5.9 % Normal 1.7-12.0 [facility] Comment on above: Performed By: #### U RCX #### [facility] [address] [address] [address] Ramses Dumas NEUT # 8.2 103/ul Critically high 1.4-6.5 [facility] Comment on above: Performed By: #### U RCX #### [facility] [address] [place] [address] Dr. Ramses Dumas Neutrophils/100 WBC (Bld) 86.7 % Critically high 43.0-75.0 [facility] Comment on above: Performed By: #### U RCX #### [facility] [address] [place] [address] Dr. Ramses Dumas Platelet mean volume (Bld) [Entitic vol] 9.4 fL Critically low 9.5-13.5 [facility] Comment on above: Performed By: #### U RCX #### [facility] [address] [place] [address] Dr. Ramses Dumas PLT 235 103/ul Normal 150-450 [facility] Comment on above: Performed By: #### U RCX #### [facility] [address] [place] [address] Dr. Ramses Dumas RBC 4.17 106/ul Critically low 4.20-5.40 [facility] Comment on above: Performed By: #### U RCX #### [facility] [address] [place] [address] Dr. Ramses Dumas WBC 9.5 103/ul Normal 4.0-11.0 [facility] Comment on above: Performed By: #### U RCX #### [facility] [address] [place] [address] Dr. Ramses Dumas PROF 14(COMP METB)on 022 Albumin [Mass/Vol] 2.6 g/dL Critically low 3.4-5.0 [facility] Comment on above: Performed By: #### U KJ 24 #### [facility] [address] [address] [address] Ramses Dumas Albumin/Globulin [Mass ratio] 0.8 {ratio} Normal [facility] Comment on above: Performed By: #### U KJ 24 #### [facility] [address] [address] [address] Ramses Dumas ALP [Catalytic activity/Vol] 82 U/L Normal 46-116 [facility] Comment on above: Performed By: #### U KJ 24 #### [facility] [address] [address] [address] Ramses Dumas ALT [Catalytic activity/Vol] 257 U/L Critically high 14-59 [facility] Comment on above: Performed By: #### U KJ 24 #### [facility] [address] [place] [address] Dr. Ramses Dumas Anion gap [Moles/Vol] 10.3 mmol/L Normal [facility] Comment on above: Performed By: #### U KJ 24 #### [facility] [address] [place] [address] Dr. Ramses Dumas AST [Catalytic activity/Vol] 196 U/L Critically high 15-37 [facility] Comment on above: Performed By: #### U KJ 24 #### [facility] [address] [place] [address] Dr. Ramses Dumas Bilirubin [Mass/Vol] 0.5 mg/dL Normal 0.2-1.0 [facility] Comment on above: Performed By: #### U KJ 24 #### [facility] [address] [place] [address] Dr. Ramses Dumas Calcium [Mass/Vol] 7.8 mg/dL Critically low 8.5-10.1 [facility] Comment on above: Performed By: #### U KJ 24 #### [facility] [address] [place] [address] Dr. Ramses Dumas Chloride [Moles/Vol] 104 mmol/L Normal 98-107 [facility] Comment on above: Performed By: #### U KJ 24 #### [facility] [address] [address] [address] Ramses Dumas CO2 [Moles/Vol] 24.4 mmol/L Normal 21.0-32.0 [facility] Comment on above: Performed By: #### U KJ 24 #### [facility] [address] [address] [address] Ramses Dumas Creatinine [Mass/Vol] 1.09 mg/dL Critically high 0.55-1.02 [facility] Comment on above: Performed By: #### U KJ 24 #### [facility] [address] [address] [address] Ramses Dumas EGFR-AF DOMINICAN >60 Normal >=60 [facility] Comment on above: Performed By: #### U KJ 24 #### [facility] [address] [address] [address] Ramses Dumas EGFR-NON AF DOMINICAN 59 mL/min/1.73m2 Critically low >=60 [facility] Comment on above: Performed By: #### U KJ 24 #### [facility] [address] [address] [address] Ramses Dumas Globulin (S) [Mass/Vol] 3.3 g/dL Normal [facility] Comment on above: Performed By: #### U KJ 24 #### [facility] [address] [address] [address] Ramses Dumas Glucose [Mass/Vol] 143 mg/dL Critically high 74-106 T [facility] Comment on above: Performed By: #### U KJ 24 #### [facility] [address] [address] [address] Ramses Dumas Potassium [Moles/Vol] 3.7 mmol/L Normal 3.5-5.1 [facility] Comment on above: Performed By: #### U KJ 24 #### [facility] [address] [address] [address] Ramses Dumas Protein [Mass/Vol] 5.9 g/dL Critically low 6.4-8.2 Th [facility] Comment on above: Performed By: #### U KJ 24 #### [facility] [address] [place] [address] Dr. Ramses Dumas Sodium [Moles/Vol] 135 mmol/L Critically low 136-145 Th [facility] Comment on above: Performed By: #### U KJ 24 #### [facility] [address] [place] [address] Dr. Ramses Dumas Urea nitrogen [Mass/Vol] 10.0 mg/dL Normal 7.0-18.0 [facility] Comment on above: Performed By: #### U KJ 24 #### [facility] [address] [place] [address] Dr. Ramses Dumas Urea nitrogen/Creatinine [Mass ratio] 9.2 mg/mg Normal [facility] Comment on above: Performed By: #### U KJ 24 #### [facility] [address] [place] [address] Dr. Ramses Dumas BLOOD CULTURE ID PANELon A. baumannii Not detected Normal NOT DETECTED [facility] Comment on above: Performed By: #### C VDTBH #### [facility] [address] [place] [address] Dr. Ramses Dumas Bacteriodes fragilis Not detected Normal NOT DETECTED [facility] Comment on above: Performed By: #### C VDTBH #### [facility] [address] [place] [address] Dr. Ramses Dumas BCID CONTROLS PASSED Normal [facility] Comment on above: Performed By: #### C VDTBH #### [facility] [address] [place] [address] Dr. Ramses Dumas BCIDBTHD BLOOD CULTURE BOTTLE INFORMATION Normal [facility] Comment on above: Performed By: #### C VDTBH #### [facility] [address] [place] [address] Dr. Ramses Dumas BCIDHD1 ANTIMICROBIAL RESISTANCE GENES Normal [facility] Comment on above: Performed By: #### C VDTBH #### [facility] [address] [place] [address] Dr. Ramses Dumas BCIDHD2 SEE BELOW [facility] Comment on above: Result Comment: Note : Antimicrobial resitance can occur via multiple mechanisms. A Not Detected result for the [employer] antomicrobial resistance gene assays does not indicate antimicrobial susceptibility. Subculturing is required for species identification and susceptibility testing of isolates. Performed By: #### C VDTBH #### [facility] [address] [place] [address] Dr. Ramses Dumas BCIDHD3 Positive Normal [facility] Comment on above: Performed By: #### C VDTBH #### [facility] [address] [place] [address] Dr. Ramses Dumas BCIDHD4 Negative Normal [facility] Comment on above: Performed By: #### C VDTBH #### [facility] [address] [place] [address] Dr. Ramses Dumas BCIDHD5 YEAST Normal [facility] Comment on above: Performed By: #### C VDTBH #### [facility] [address] [place] [address] Dr. Ramses Dumas Bottle Set: Set 1 Normal [facility] Comment on above: Performed By: #### C VDTBH #### [facility] [address] [place] [address] Dr. Ramses Dumas Bottle: Pediatric Normal [facility] Comment on above: Performed By: #### C VDTBH #### [facility] [address] [place] [address] Dr. Ramses Dumas C. neoformans/gattii Not detected Normal NOT DETECTED [facility] Comment on above: Performed By: #### C VDTBH #### [facility] [address] [place] [address] Dr. Ramses Dumas Ikm albicans Not detected Normal NOT DETECTED [facility] Comment on above: Performed By: #### C VDTBH #### [facility] [address] [place] [address] Dr. Ramses Dumas Kim auris Not detected Normal NOT DETECTED [facility] Comment on above: Performed By: #### C VDTBH #### [facility] [address] [place] [address] Dr. Ramses Dumas Kim glabrata Not detected Normal NOT DETECTED [facility] Comment on above: Performed By: #### C VDTBH #### [facility] [address] [address] [address] Ramses Dumas Kim Krusei Not detected Normal NOT DETECTED The [facility] Comment on above: Performed By: #### C VDTBH #### [facility] [address] [place] [address] Dr. Ramses Dumas Kim Parapsilosis Not detected Normal NOT DETECTED [facility] Comment on above: Performed By: #### C VDTBH #### [facility] [address] [address] [address] Ramses Dumas Kim Tropicalis Not detected Normal NOT DETECTED [facility] Comment on above: Performed By: #### C VDTBH #### [facility] [address] [place] [address] Dr. Ramses Dumas CTX-M Resistant Gene Not Applicable Normal NOT DETECTE D [facility] Comment on above: Performed By: #### C VDTBH #### [facility] [address] [place] [address] Dr. Ramses Dumas E. Cloacae complex Not detected Normal NOT DETECTED [facility] Comment on above: Performed By: #### C VDTBH #### [facility] [address] [place] [address] Dr. Ramses Dumas E. faecalis Not detected Normal NOT DETECTED [facility] Comment on above: Performed By: #### C VDTBH #### [facility] [address] [place] [address] Dr. Ramses Dumas E. faecium Not detected Normal NOT DETECTED [facility] Comment on above: Performed By: #### C VDTBH #### [facility] [address] [place] [address] Dr. Ramses Dumas Enterobacteriaceae Not detected Normal NOT DETECTED [facility] Comment on above: Performed By: #### C VDTBH #### [facility] [address] [place] [address] Dr. Ramses Dumas Escherichia coli Not detected Normal NOT DETECTED [facility] Comment on above: Performed By: #### C VDTBH #### [facility] [address] [place] [address] Dr. Ramses Dumas H. influenzae Not detected Normal NOT DETECTED [facility] Comment on above: Performed By: #### C VDTBH #### [facility] [address] [place] [address] Dr. Ramses Dumas IMP Resistant Gene Not Applicable Normal NOT DETECTED [facility] Comment on above: Performed By: #### C VDTBH #### [facility] [address] [place] [address] Dr. Ramses Dumas K. oxytoca Not detected Normal NOT DETECTED [facility] Comment on above: Performed By: #### C VDTBH #### [facility] [address] [place] [address] Dr. Ramses Dumas K. pneumoniae Not detected Normal NOT DETECTED [facility] Comment on above: Performed By: #### C VDTBH #### [facility] [address] [place] [address] Dr. Ramses Dumas Klebsiella aerogenes Not detected Normal NOT DETECTED [facility] Comment on above: Performed By: #### C VDTBH #### [facility] [address] [place] [address] Dr. Ramses Dumas KPC Resistant Gene Not detected Normal NOT DETECTED [facility] Comment on above: Performed By: #### C VDTBH #### [facility] [address] [place] [address] Dr. Ramses Dumas List. monocytogenes Not detected Normal NOT DETECTED [facility] Comment on above: Performed By: #### C VDTBH #### [facility] [address] [place] [address] Dr. Ramses Dumas Mcr-1 Resistant Gene Not Applicable Normal NOT DETECTE D [facility] Comment on above: Performed By: #### C VDTBH #### [facility] [address] [place] [address] Dr. Ramses Dumas mecA/C Not Applicable Normal NOT DETECTED [facility] Comment on above: Performed By: #### C VDTBH #### [facility] [address] [place] [address] Dr. Ramses Dumas mecA/C MREJ Not Applicable Normal NOT DETECTED [facility] Comment on above: Performed By: #### C VDTBH #### [facility] [address] [place] [address] Dr. Ramses Dumas N. meningitidis Not detected Normal NOT DETECTED [facility] Comment on above: Performed By: #### C VDTBH #### [facility] [address] [place] [address] Dr. Ramses Dumas NDM Resistant Gene Not Applicable Normal NOT DETECTED [facility] Comment on above: Performed By: #### C VDTBH #### [facility] [address] [place] [address] Dr. Ramses Dumas Oxa-48-like Not Applicable Normal NOT DETECTED [facility] Comment on above: Performed By: #### C VDTBH #### [facility] [address] [place] [address] Dr. Ramses Dumas Proteus Not detected Normal NOT DETECTED [facility] Comment on above: Performed By: #### C VDTBH #### [facility] [address] [place] [address] Dr. Ramses Dumas Pseud. aeruginosa Not detected Normal NOT DETECTED [facility] Comment on above: Performed By: #### C VDTBH #### [facility] [address] [place] [address] Dr. Ramses Dumas S. maltophilia Not detected Normal NOT DETECTED [facility] Comment on above: Performed By: #### C VDTBH #### [facility] [address] [place] [address] Dr. Ramses Dumas Salmonella Not detected Normal NOT DETECTED [facility] Comment on above: Performed By: #### C VDTBH #### [facility] [address] [place] [address] Dr. Ramses Dumas Seratia marcescens Not detected Normal NOT DETECTED [facility] Comment on above: Performed By: #### C VDTBH #### [facility] [facility] [address] [place] [address] Dr. Ramses Dumas Site: unknown/not given Normal [facility] Comment on above: Performed By: #### C VDTBH #### [facility] [address] [place] [address] Dr. Ramses Dumas Staph. aureus Not detected Normal NOT DETECTED [facility] Comment on above: Performed By: #### C VDTBH #### [facility] [address] [place] [address] Dr. Ramses Dumas Staph. epidermidis Not detected Normal NOT DETECTED [facility] Comment on above: Performed By: #### C VDTBH #### [facility] [address] [place] [address] Dr. Ramses Dumas Stapphillip. lugdunensis Not detected Normal NOT DETECTED [facility] Comment on above: Performed By: #### C VDTBH #### [facility] [address] [place] [address] Dr. Ramses Dumas Staphylococcus Not detected Normal NOT DETECTED [facility] Comment on above: Performed By: #### C VDTBH #### [facility] [address] [place] [address] Dr. Ramses Dumas Strep. agalactiae Detected Critically abnormal NOT DETECTED [facility] Comment on above: Performed By: #### C VDTBH #### [facility] [address] [place] [address] Dr. Ramses Dumas Strep. pneumoniae Not detected Normal NOT DETECTED [facility] Comment on above: Performed By: #### C VDTBH #### [facility] [address] [place] [address] Dr. Ramses Dumas Strep. pyogenes Not detected Normal NOT DETECTED [facility] Comment on above: Performed By: #### C VDTBH #### [facility] [address] [place] [address] Dr. Ramses Dumas Streptococcus Detected Critically abnormal NOT DETECTED [facility] Comment on above: Performed By: #### C VDTBH #### [facility] [address] [place] [address] Dr. Ramses Dumas Efrain/B Resist. Gene Not detected Normal NOT DETECTED [facility] Comment on above: Performed By: #### C VDTBH #### [facility] [address] [place] [address] Dr. Ramses Dumas VIM Resistant Gene Not Applicable Normal NOT DETECTED [facility] Comment on above: Performed By: #### C VDTBH #### [facility] [address] [place] [address] Dr. Ramses Dumas CBC AUTO DIFFon 08-22-2022 BASO # 0.1 103/ul Normal 0.0-0.1 [facility] Comment on above: Performed By: #### U KJ 24 #### [facility] [address] [place] [address] Dr. Ramses Dumas Basophils/100 WBC (Bld) 0.7 % Normal 0.2-2.0 [facility] Comment on above: Performed By: #### U KJ 24 #### [facility] [address] [place] [address] Dr. Ramses Dumas EO # 0.1 103/ul Normal 0.0-0.7 [facility] Comment on above: Performed By: #### U KJ 24 #### [facility] [address] [place] [address] Dr. Ramses Dumas Eosinophils/100 WBC (Bld) 1.7 % Normal 0.9-7.0 [facility] Comment on above: Performed By: #### U KJ 24 #### [facility] [address] [place] [address] Dr. Ramses Dumas Erythrocyte distribution width (RBC) [Ratio] 13.2 % Normal 11.0-15.0 [facility] Comment on above: Performed By: #### U KJ 24 #### [facility] [address] [place] [address] Dr. Ramses Dumas Hematocrit (Bld) [Volume fraction] 39.8 % Normal 36.0-48.0 [facility] Comment on above: Performed By: #### U KJ 24 #### [facility] [address] [place] [address] Dr. Ramses Dumas Hemoglobin (Bld) [Mass/Vol] 12.9 g/dL Normal 12.0-16.0 [facility] Comment on above: Performed By: #### U KJ 24 #### [facility] [address] [place] [address] Dr. Ramses Dumas IG # 0.02 10e3/ul Normal 0.00-0.03 [facility] Comment on above: Performed By: #### U KJ 24 #### [facility] [address] [place] [address] Dr. Ramses Dumas IG % 0.2 % Normal 0.0-0.5 [facility] Comment on above: Performed By: #### U KJ 24 #### [facility] [address] [place] [address] Dr. Ramses Dumas LYMPH # 3.2 103/ul Normal 1.2-3.8 [facility] Comment on above: Performed By: #### U KJ 24 #### [facility] [address] [place] [address] Dr. Ramses Dumas Lymphocytes/100 WBC (Bld) 40.0 % Normal 20.5-60.0 [facility] Comment on above: Performed By: #### U KJ 24 #### [facility] [address] [place] [address] Dr. Ramses Dumas MANUAL DIFF REQ NO Normal [facility] Comment on above: Performed By: #### U KJ 24 #### [facility] [address] [place] [address] Dr. Ramses Dumas MCH (RBC) [Entitic mass] 26.6 pg Critically low 26.7-34.0 [facility] Comment on above: Performed By: #### U KJ 24 #### [facility] [address] [place] [address] Dr. Ramses Dumas MCHC (RBC) [Mass/Vol] 32.4 g/dL Normal 29.9-35.2 [facility] Comment on above: Performed By: #### U KJ 24 #### [facility] [address] [place] [address] Dr. Ramses Dumas MCV (RBC) [Entitic vol] 82.1 fL Normal 81.0-99.0 [facility] Comment on above: Performed By: #### U KJ 24 #### [facility] [address] [place] [address] Dr. Ramses Dumas MONO # 0.6 103/ul Normal 0.3-0.8 [facility] Comment on above: Performed By: #### U KJ 24 #### [facility] [address] [place] [address] Dr. Ramses Dumas Monocytes/100 WBC (Bld) 7.5 % Normal 1.7-12.0 [facility] Comment on above: Performed By: #### U KJ 24 #### [facility] [address] [place] [address] Dr. Ramses Dumas NEUT # 4.0 103/ul Normal 1.4-6.5 [facility] Comment on above: Performed By: #### U KJ 24 #### [facility] [address] [place] [address] Dr. Ramses Dumas Neutrophils/100 WBC (Bld) 49.9 % Normal 43.0-75.0 [facility] Comment on above: Performed By: #### U KJ 24 #### [facility] [address] [place] [address] Dr. Ramses Dumas Platelet mean volume (Bld) [Entitic vol] 9.3 fL Critically low 9.5-13.5 [facility] Comment on above: Performed By: #### U KJ 24 #### [facility] [address] [place] [address] Dr. Ramses Dumas PLT 354 103/ul Normal 150-450 [facility] Comment on above: Performed By: #### U KJ 24 #### [facility] [address] [place] [address] Dr. Ramses Dumas RBC 4.85 106/ul Normal 4.20-5.40 [facility] Comment on above: Performed By: #### U KJ 24 #### [facility] [address] [place] [address] Dr. Ramses Dumas WBC 8.1 103/ul Normal 4.0-11.0 [facility] Comment on above: Performed By: #### U KJ 24 #### [facility] [address] [address] ABD/PELVIS WO CONon [...] KESHIA IRIZARRY Date: 2022-08-22 07:04 Normal [facility] Covid-19 PCR (CVDTB)on SARS-CoV-2 (COVID-19) RNA FRANCESCA+probe Ql (Unsp spec) Not detected Normal NOT DETECTED [facility] Comment on above: Result Comment: When [...] for this test is supported by the [employer] of Health and Human Service's declaration that [...] used). Performed By: #### C MP #### [facility] [address] [place] [address] Dr. Ramses Dumas ER URINE PROFILEon 2 Bilirubin Ql (U) Negative Normal NEGATIVE [facility] Comment on above: Performed By: #### U RCX #### [facility] [address] [place] [address] Dr. Ramses Dumas Clarity (U) CLEAR Normal CLEAR [facility] Comment on above: Performed By: #### U RCX #### [facility] [address] [place] [address] Dr. Ramses Dumas Color (U) LT. YELLOW Normal YELLOW [facility] Comment on above: Performed By: #### U RCX #### [facility] [address] [place] [address] Dr. Ramses DELEON A micrscopic examination will be performed if indicated. Normal [facility] Comment on above: Performed By: #### U RCX #### [facility] [address] [place] [address] Dr. Ramses Dumas Glucose Ql (U) Negative Normal NEGATIVE [facility] Comment on above: Performed By: #### U RCX #### [facility] [address] [place] [address] Dr. Ramses Dumas Hemoglobin Ql (U) SMALL Abnormal NEGATIVE [facility] Comment on above: Performed By: #### U RCX #### [facility] [address] [place] [address] Dr. Ramses Dumas Ketones Ql (U) Negative Normal NEGATIVE [facility] Comment on above: Performed By: #### U RCX #### [facility] [address] [place] [address] Dr. Ramses Dumas LEUKOCYTES SMALL Abnormal NEGATIVE [facility] Comment on above: Performed By: #### U RCX #### [facility] [address] [place] [address] Dr. Ramses Dumas Nitrite Ql (U) Negative Normal NEGATIVE [facility] Comment on above: Performed By: #### U RCX #### [facility] [address] [place] [address] Dr. Ramses Dumas pH (U) 7.0 [pH] Normal 5-9 [facility] Comment on above: Performed By: #### U RCX #### [facility] [address] [place] [address] Dr. Ramses Dumas Protein (U) [Mass/Vol] 30 mg/dL Abnormal NEGATIVE/ TRACE [facility] Comment on above: Performed By: #### U RCX #### [facility] [address] [place] [address] Dr. Ramses Dumas SPEC GRAVITY 1.020 Normal 1.005-<=1.02 5 [facility] Comment on above: Performed By: #### U RCX #### [facility] [address] [place] [address] Dr. Ramses Dumas UR MICRO IND INDICATED Normal [facility] Comment on above: Performed By: #### U RCX #### [facility] [address] [place] [address] Dr. Ramses Dumas Urobilinogen Qn (U) 0.2 {Lucero'U}/dL Normal 0.2 - 1. 0 [facility] Comment on above: Performed By: #### U RCX #### [facility] [address] [place] [address] Dr. Ramses Dumas LACTATE/LACTIC ACIDon 2021 Lactate [Moles/Vol] 2.3 mmol/L Critically high 0.4-1.9 [facility] Comment on above: Performed By: #### U RCX #### [facility] [address] [place] [address] Dr. Ramses Dumas URon 08-22-2022 , QUAL Negative Normal NEGATIVE [facility] Comment on above: Performed By: #### U RCX #### [facility] [address] [address] [address] Ramses Dumas PROF 14(COMP METB)on 022 Albumin [Mass/Vol] 3.5 g/dL Normal 3.4-5.0 [facility] Comment on above: Performed By: #### U RCX #### [facility] [address] [place] [address] Dr. Ramses Dumas Albumin/Globulin [Mass ratio] 0.9 {ratio} Normal [facility] Comment on above: Performed By: #### U RCX #### [facility] [address] [place] [address] Dr. Ramses Dumas ALP [Catalytic activity/Vol] 92 U/L Normal 46-116 [facility] Comment on above: Performed By: #### U RCX #### [facility] [address] [place] [address] Dr. Ramses Dumas ALT [Catalytic activity/Vol] 139 U/L Critically high 14-59 [facility] Comment on above: Performed By: #### U RCX #### [facility] [address] [place] [address] Dr. Ramses Dumas Anion gap [Moles/Vol] 10.2 mmol/L Normal [facility] Comment on above: Performed By: #### U RCX #### [facility] [address] [place] [address] Dr. Ramses Dumas AST [Catalytic activity/Vol] 112 U/L Critically high 15-37 [facility] Comment on above: Performed By: #### U RCX #### [facility] [address] [place] [address] Dr. Ramses Dumas Bilirubin [Mass/Vol] 0.2 mg/dL Normal 0.2-1.0 [facility] Comment on above: Performed By: #### U RCX #### [facility] [address] [place] [address] Dr. Ramses Dumas Calcium [Mass/Vol] 8.8 mg/dL Normal 8.5-10.1 [facility] Comment on above: Performed By: #### U RCX #### [facility] [address] [address] [address] Ramses Dumas Chloride [Moles/Vol] 105 mmol/L Normal 98-107 [facility] Comment on above: Performed By: #### U RCX #### [facility] [address] [address] [address] Ramses Dumas CO2 [Moles/Vol] 26.3 mmol/L Normal 21.0-32.0 [facility] Comment on above: Performed By: #### U RCX #### [facility] [address] [place] [address] Dr. Ramses Dumas Creatinine [Mass/Vol] 0.95 mg/dL Normal 0.55-1.02 [facility] Comment on above: Performed By: #### U RCX #### [facility] [address] [place] [address] Dr. Ramses Dumas EGFR-AF DOMINICAN >60 Normal >=60 [facility] Comment on above: Performed By: #### U RCX #### [facility] [address] [place] [address] Dr. Ramses Dumas EGFR-NON AF DOMINICAN >60 Normal >=60 [facility] Comment on above: Performed By: #### U RCX #### [facility] [address] [place] [address] Dr. Ramses Dumas Globulin (S) [Mass/Vol] 3.9 g/dL Normal [facility] Comment on above: Performed By: #### U RCX #### [facility] [address] [place] [address] Dr. Ramses Dumas Glucose [Mass/Vol] 137 mg/dL Critically high 74-106 [facility] Comment on above: Performed By: #### U RCX #### [facility] [address] [place] [address] Dr. Ramses Dumas Potassium [Moles/Vol] 3.5 mmol/L Normal 3.5-5.1 [facility] Comment on above: Performed By: #### U RCX #### [facility] [address] [place] [address] Dr. Ramses Dumas Protein [Mass/Vol] 7.4 g/dL Normal 6.4-8.2 [facility] Comment on above: Performed By: #### U RCX #### [facility] [address] [place] [address] Dr. Ramses Dumas Sodium [Moles/Vol] 138 mmol/L Normal 136-145 [facility] Comment on above: Performed By: #### U RCX #### [facility] [address] [place] [address] Dr. Ramses Dumas Urea nitrogen [Mass/Vol] 11.0 mg/dL Normal 7.0-18.0 [facility] Comment on above: Performed By: #### U RCX #### [facility] [address] [place] [address] Dr. Ramses Dumas Urea nitrogen/Creatinine [Mass ratio] 11.6 mg/mg Normal [facility] Comment on above: Performed By: #### U RCX #### [facility] [address] [place] [address] Dr. Ramses Dumas URINE MICROSCOPIC ONLYon BACTERIA LARGE Abnormal NONE SEEN [facility] Comment on above: Performed By: #### U RCX #### [facility] [address] [place] [address] Dr. Ramses Dumas Bacteria identified Cx Nom (U) CX ALREADY ORDERED Normal [facility] Comment on above: Performed By: #### U RCX #### [facility] [address] [place] [address] Dr. Ramses Dumas CAST NONE SEEN Normal NONE SEEN [facility] Comment on above: Performed By: #### U RCX #### [facility] [address] [place] [address] Dr. Rasmes Dumas Crystals LM Nom (Urine sed) NONE SEEN Normal NONE SEEN [facility] Comment on above: Performed By: #### U RCX #### [facility] [address] [place] [address] Dr. Ramses Dumas Epithelial cells LM Ql (Urine sed) MANY Abnormal NONE SEEN /RARE [facility] Comment on above: Performed By: #### U RCX #### [facility] [address] [place] [address] Dr. Ramses Dumas MUCOUS NONE SEEN Normal NONE SEEN [facility] Comment on above: Performed By: #### U RCX #### [facility] [address] [place] [address] Dr. Ramses Dumas RBC 5-10 Abnormal 0-2 [facility] Comment on above: Performed By: #### U RCX #### [facility] [address] [place] [address] Dr. Ramses Dumas WBC 50-75 Abnormal NONE SEEN [facility] Comment on above: Performed By: #### U RCX #### [facility] [address] [place] [address] Dr. Ramses Dumas CULTURE URINEon 08-15-2022 CULTURE [...] F Tetracycline >=16 R F Normal [facility] Comment on above: Performed By: #### U RCX #### [facility] [address] [place] [address] Dr. Ramses Dumas ACETAMINOPHENon 08-13-2022 Acetaminophen [Mass/Vol] ug/mL Critically low 10.0-30.0 [facility] Comment on above: Performed By: #### U RCX #### [facility] [address] [place] [address] Dr. Ramses Dumas CBC AUTO DIFFon 08-13-2022 BASO # 0.1 103/ul Normal 0.0-0.1 [facility] Comment on above: Performed By: #### C VDTBH #### [facility] [address] [place] [address] Dr. Ramses Dumas Basophils/100 WBC (Bld) 0.8 % Normal 0.2-2.0 [facility] Comment on above: Performed By: #### C VDTBH #### [facility] [address] [place] [address] Dr. Ramses Dumas EO # 0.1 103/ul Normal 0.0-0.7 [facility] Comment on above: Performed By: #### C VDTBH #### [facility] [address] [place] [address] Dr. Ramses Dumas Eosinophils/100 WBC (Bld) 1.6 % Normal 0.9-7.0 [facility] Comment on above: Performed By: #### C VDTBH #### [facility] [address] [place] [address] Dr. Ramses Dumas Erythrocyte distribution width (RBC) [Ratio] 13.3 % Normal 11.0-15.0 [facility] Comment on above: Performed By: #### C VDTBH #### [facility] [address] [place] [address] Dr. Ramses Dumas Hematocrit (Bld) [Volume fraction] 40.6 % Normal 36.0-48.0 [facility] Comment on above: Performed By: #### C VDTBH #### [facility] [address] [place] [address] Dr. Ramses Dumas Hemoglobin (Bld) [Mass/Vol] 13.2 g/dL Normal 12.0-16.0 [facility] Comment on above: Performed By: #### C VDTBH #### [facility] [address] [place] [address] Dr. Ramses Dumas IG # 0.01 10e3/ul Normal 0.00-0.03 [facility] Comment on above: Performed By: #### C VDTBH #### [facility] [address] [place] [address] Dr. Ramses Dumas IG % 0.2 % Normal 0.0-0.5 [facility] Comment on above: Performed By: #### C VDTBH #### [facility] [address] [place] [address] Dr. Ramses Dumas LYMPH # 2.4 103/ul Normal 1.2-3.8 [facility] Comment on above: Performed By: #### C VDTBH #### [facility] [address] [place] [address] Dr. Ramses Dumas Lymphocytes/100 WBC (Bld) 37.7 % Normal 20.5-60.0 [facility] Comment on above: Performed By: #### C VDTBH #### [facility] [address] [place] [address] Dr. Ramses Dumas MANUAL DIFF REQ NO Normal [facility] Comment on above: Performed By: #### C VDTBH #### [facility] [address] [place] [address] Dr. Ramses Dumas MCH (RBC) [Entitic mass] 26.7 pg Normal 26.7-34.0 [facility] Comment on above: Performed By: #### C VDTBH #### [facility] [address] [place] [address] Dr. Ramses Dumas MCHC (RBC) [Mass/Vol] 32.5 g/dL Normal 29.9-35.2 [facility] Comment on above: Performed By: #### C VDTBH #### [facility] [address] [place] [address] Dr. Ramses Dumas MCV (RBC) [Entitic vol] 82.0 fL Normal 81.0-99.0 [facility] Comment on above: Performed By: #### C VDTBH #### [facility] [address] [place] [address] Dr. Ramses Dumas MONO # 0.6 103/ul Normal 0.3-0.8 [facility] Comment on above: Performed By: #### C VDTBH #### [facility] [address] [place] [address] Dr. Ramses Dumas Monocytes/100 WBC (Bld) 8.6 % Normal 1.7-12.0 [facility] Comment on above: Performed By: #### C VDTBH #### [facility] [address] [place] [address] Dr. Ramses Dumas NEUT # 3.3 103/ul Normal 1.4-6.5 [facility] Comment on above: Performed By: #### C VDTBH #### [facility] [address] [place] [address] Dr. Ramses Dumas Neutrophils/100 WBC (Bld) 51.1 % Normal 43.0-75.0 [facility] Comment on above: Performed By: #### C VDTBH #### [facility] [address] [place] [address] Dr. Ramses Dumas Platelet mean volume (Bld) [Entitic vol] 8.7 fL Critically low 9.5-13.5 [facility] Comment on above: Performed By: #### C VDTBH #### [facility] [address] [place] [address] Dr. Ramses Dumas PLT 409 103/ul Normal 150-450 [facility] Comment on above: Performed By: #### C VDTBH #### [facility] [address] [place] [address] Dr. Ramses Dumas RBC 4.95 106/ul Normal 4.20-5.40 [facility] Comment on above: Performed By: #### C VDTBH #### [facility] [address] [place] [address] Dr. Ramses Dumas WBC 6.4 103/ul Normal 4.0-11.0 [facility] Comment on above: Performed By: #### C VDTBH #### [facility] [address] [place] [address] Dr. Ramses Dumas Covid-19 PCR ([facility])on 07-20 SARS-CoV-2 (COVID-19) RNA FRANCESCA+probe Ql (Unsp spec) Not detected Normal NOT DETECTED [facility] Comment on above: Result Comment: When [...] for this test is supported by the [employer] of Health and Human Service's declaration that [...] used). Performed By: #### C VDTB #### [facility] [address] [place] [address] Dr. Ramses Dumas DRUG SCREEN RAPID (URINE)on 08-13-2022 AMP Negative Normal NEGATIVE [facility] Comment on above: Performed By: #### C BC #### [facility] [address] [place] [address] Dr. Ramses Dumas BAR Negative Normal NEGATIVE [facility] Comment on above: Performed By: #### C BC #### [facility] [address] [place] [address] Dr. Ramses Dumas BUP Negative Normal NEGATIVE [facility] Comment on above: Performed By: #### C BC #### [facility] [address] [place] [address] Dr. Ramses Dumas BZO Negative Normal NEGATIVE [facility] Comment on above: Performed By: #### C BC #### [facility] [address] [place] [address] Dr. Ramses Dumas ODILIA Negative Normal NEGATIVE [facility] Comment on above: Performed By: #### C BC #### [facility] [address] [place] [address] Dr. Ramses Dumas CUT-OFFS SEE BELOW Normal [facility] Comment on above: Result Comment: AMP [...] ng/mL Performed By: #### C BC #### [facility] [address] [place] [address] Dr. Ramses Dumas DRUG CUT HEADER DRUG CLASS TEST SYSTEM CUT-OFF CONCENTRATIONS ARE FOLLOWS: Normal [facility] Comment on above: Performed By: #### C BC #### [facility] [address] [place] [address] Dr. Ramses Dumas mAMP Negative Normal NEGATIVE [facility] Comment on above: Performed By: #### C BC #### [facility] [address] [place] [address] Dr. Ramses Dumas MTD Negative Normal NEGATIVE [facility] Comment on above: Performed By: #### C BC #### [facility] [address] [place] [address] Dr. Ramses Dumas OPI Negative Normal NEGATIVE [facility] Comment on above: Performed By: #### C BC #### [facility] [address] [place] [address] Dr. Ramses Dumas OXY Negative Normal NEGATIVE [facility] Comment on above: Performed By: #### C BC #### [facility] [address] [place] [address] Dr. Ramses Dumas PCP Negative Normal NEGATIVE [facility] Comment on above: Performed By: #### C BC #### [facility] [address] [place] [address] Dr. Ramses Dumas PPX Negative Normal NEGATIVE [facility] Comment on above: Performed By: #### C BC #### [facility] [address] [place] [address] Dr. Ramses Dumas TCA Negative Normal NEGATIVE [facility] Comment on above: Performed By: #### C BC #### [facility] [address] [address] [address] Ramses Dumas THC Negative Normal NEGATIVE [facility] Comment on above: Performed By: #### C BC #### [facility] [address] [place] [address] Dr. Ramses Dumas ER URINE PROFILEon 2 Bilirubin Ql (U) Negative Normal NEGATIVE [facility] Comment on above: Performed By: #### C BC #### [facility] [address] [address] [address] Ramses Dumas Clarity (U) CLEAR Normal CLEAR [facility] Comment on above: Performed By: #### C BC #### [facility] [address] [place] [address] Dr. Ramses Dumas Color (U) LT. YELLOW Normal YELLOW [facility] Comment on above: Performed By: #### C BC #### [facility] [address] [place] [address] Dr. Ramses Dumas ERUCARLOS ENRIQUE A micrscopic examination will be performed if indicated. Normal [facility] Comment on above: Performed By: #### C BC #### [facility] [address] [place] [address] Dr. Ramses uDmas Glucose Ql (U) Negative Normal NEGATIVE [facility] Comment on above: Performed By: #### C BC #### [facility] [address] [address] [address] Ramses Dumas Hemoglobin Ql (U) LARGE Abnormal NEGATIVE [facility] Comment on above: Performed By: #### C BC #### [facility] [address] [address] [address] Ramses Dumas Ketones Ql (U) Negative Normal NEGATIVE [facility] Comment on above: Performed By: #### C BC #### [facility] [address] [place] [address] Dr. Ramses Dumas LEUKOCYTES LARGE Abnormal NEGATIVE [facility] Comment on above: Performed By: #### C BC #### [facility] [address] [place] [address] Dr. Ramses Dumas Nitrite Ql (U) Positive Abnormal NEGATIVE [facility] Comment on above: Performed By: #### C BC #### [facility] [address] [place] [address] Dr. Ramses Dumas pH (U) 6.0 [pH] Normal 5-9 [facility] Comment on above: Performed By: #### C BC #### [facility] [address] [place] [address] Dr. Ramses Dumas Protein (U) [Mass/Vol] 30 mg/dL Abnormal NEGATIVE/ TRACE [facility] Comment on above: Performed By: #### C BC #### [facility] [address] [place] [address] Dr. Ramses Dumas SPEC GRAVITY >=1.030 Abnormal 1.005-<=1.02 5 [facility] Comment on above: Performed By: #### C BC #### [facility] [address] [place] [address] Dr. Ramses Dumas UR MICRO IND INDICATED Normal [facility] Comment on above: Performed By: #### C BC #### [facility] [address] [place] [address] Dr. Ramses Dumas Urobilinogen Qn (U) 0.2 {Lucero'U}/dL Normal 0.2 - 1. 0 [facility] Comment on above: Performed By: #### C BC #### [facility] [address] [place] [address] Dr. Ramses Dumas ETHANOL (BLD ALC)on 08-13-20 ALC NOTE NOTE: 80 mg/dl is th e legal limit for a blood alcohol level Normal [facility] Comment on above: Performed By: #### B LDCX2 #### [facility] [address] [place] [address] Dr. Ramses Dumas Ethanol [Mass/Vol] mg/dL Normal [facility] Comment on above: Performed By: #### B LDCX2 #### [facility] [address] [place] [address] Dr. Ramses Dumas URon 08-13-2022 , QUAL Negative Normal NEGATIVE [facility] Comment on above: Performed By: #### C BC #### [facility] [address] [place] [address] Dr. Ramses Dumas PROF 14(COMP METB)on 022 Albumin [Mass/Vol] 3.8 g/dL Normal 3.4-5.0 [facility] Comment on above: Performed By: #### U RCX #### [facility] [address] [place] [address] Dr. Ramses Dumas Albumin/Globulin [Mass ratio] 0.9 {ratio} Normal [facility] Comment on above: Performed By: #### U RCX #### [facility] [address] [place] [address] Dr. Ramses Dumas ALP [Catalytic activity/Vol] 82 U/L Normal 46-116 [facility] Comment on above: Performed By: #### U RCX #### [facility] [address] [place] [address] Dr. Ramses Dumas ALT [Catalytic activity/Vol] 41 U/L Normal 14-59 [facility] Comment on above: Performed By: #### U RCX #### [facility] [address] [place] [address] Dr. Ramses Dumas Anion gap [Moles/Vol] 9.3 mmol/L Normal [facility] Comment on above: Performed By: #### U RCX #### [facility] [address] [place] [address] Dr. Ramses Dumas AST [Catalytic activity/Vol] 21 U/L Normal 15-37 [facility] Comment on above: Performed By: #### U RCX #### [facility] [address] [place] [address] Dr. Ramses Dumas Bilirubin [Mass/Vol] 0.3 mg/dL Normal 0.2-1.0 [facility] Comment on above: Performed By: #### U RCX #### [facility] [address] [place] [address] Dr. Ramses Dumas Calcium [Mass/Vol] 8.9 mg/dL Normal 8.5-10.1 [facility] Comment on above: Performed By: #### U RCX #### [facility] [address] [place] [address] Dr. Ramses Dumas Chloride [Moles/Vol] 105 mmol/L Normal 98-107 [facility] Comment on above: Performed By: #### U RCX #### [facility] [address] [address] [address] Ramses Dumas CO2 [Moles/Vol] 28.5 mmol/L Normal 21.0-32.0 [facility] Comment on above: Performed By: #### U RCX #### [facility] [address] [place] [address] Dr. Ramses Dumas Creatinine [Mass/Vol] 0.81 mg/dL Normal 0.55-1.02 [facility] Comment on above: Performed By: #### U RCX #### [facility] [address] [place] [address] Dr. Ramses Dumas EGFR-AF DOMINICAN >60 Normal >=60 [facility] Comment on above: Performed By: #### U RCX #### [facility] [address] [place] [address] Dr. Ramses Dumas EGFR-NON AF DOMINICAN >60 Normal >=60 [facility] Comment on above: Performed By: #### U RCX #### [facility] [address] [place] [address] Dr. Ramses Dumas Globulin (S) [Mass/Vol] 4.1 g/dL Normal [facility] Comment on above: Performed By: #### U RCX #### [facility] [address] [address] [address] Ramses Dumas Glucose [Mass/Vol] 100 mg/dL Normal 74-106 [facility] Comment on above: Performed By: #### U RCX #### [facility] [address] [place] [address] Dr. Ramses Dumas Potassium [Moles/Vol] 3.8 mmol/L Normal 3.5-5.1 [facility] Comment on above: Performed By: #### U RCX #### [facility] [address] [address] [address] Ramses Dumas Protein [Mass/Vol] 7.9 g/dL Normal 6.4-8.2 [facility] Comment on above: Performed By: #### U RCX #### [facility] [address] [address] [address] Ramses Dumas Sodium [Moles/Vol] 139 mmol/L Normal 136-145 [facility] Comment on above: Performed By: #### U RCX #### [facility] [address] [address] [address] Ramses Dumas Urea nitrogen [Mass/Vol] 10.0 mg/dL Normal 7.0-18.0 [facility] Comment on above: Performed By: #### U RCX #### [facility] [address] [address] [address] Ramses Dumas Urea nitrogen/Creatinine [Mass ratio] 12.3 mg/mg Normal [facility] Comment on above: Performed By: #### U RCX #### [facility] [address] [address] [address] Ramses Dumas SALICYLATEon 08-13-2022 SALICYLATE <2.8 Normal <=19.9 [facility] Comment on above: Performed By: #### U RCX #### [facility] [address] [address] [address] Ramses Dumas URINE MICROSCOPIC ONLYon BACTERIA LARGE Abnormal NONE SEEN [facility] Comment on above: Performed By: #### C BC #### [facility] [address] [address] [address] Ramses Dumas Bacteria identified Cx Nom (U) INDICATED Normal [facility] Comment on above: Performed By: #### C BC #### [facility] [address] [address] [address] Ramses Dumas CA OX CRYSTALS RARE Normal [facility] Comment on above: Performed By: #### C BC #### [facility] [address] [place] [address] Dr. Ramses Dumas CAST NONE SEEN Normal NONE SEEN [facility] Comment on above: Performed By: #### C BC #### [facility] [address] [place] [address] Dr. Ramses Dumas Crystals LM Nom (Urine sed) SEEN Abnormal NONE SEEN [facility] Comment on above: Performed By: #### C BC #### [facility] [address] [place] [address] Dr. Ramses Dumas Epithelial cells LM Ql (Urine sed) MODERATE Abnormal NONE SEEN /RARE [facility] Comment on above: Performed By: #### C BC #### [facility] [address] [place] [address] Dr. Ramses Dumas MUCOUS NONE SEEN Normal NONE SEEN [facility] Comment on above: Performed By: #### C BC #### [facility] [address] [place] [address] Dr. Ramses Dumas RBC 10-20 Abnormal 0-2 [facility] Comment on above: Performed By: #### C BC #### [facility] [address] [place] [address] Dr. Ramess Dumas WBC 20-50 Abnormal NONE SEEN [facility] Comment on above: Performed By: #### C BC #### [facility] [address] [place] [address] Dr. Ramses Dumas Pap IG,rfx Aptima HPV all pt hon 08-09-2022 . . Normal [facility] Comment on above: Performed By: #### C MP #### [facility] [address] [place] [address] Dr. Ramses Dumas DIAGNOSIS: Comment Abnormal [facility] Comment on above: Result Comment: EPIT HELIAL CELL ABNORMALITY. LOW GRADE SQUAMOUS INTRAEPITHELIAL LESION (LSIL). Performed By: #### C MP #### [facility] [address] [place] [address] Dr. Ramses Dumas Electronically signed by: Comment Normal [facility] Comment on above: Result Comment: Arnaud Joseph MD, Pathologist Performed By: #### C MP #### [facility] [address] [address] [address] Ramses Dumas HPV Aptima Negative Normal Negative [facility] Comment on above: Result Comment: This nucleic acid amplification test detects fourteen high-risk HPV types (16,18,31,33,35,39,45,51,52,56,58,59,66,68) without differentiation. Performed By: #### C MP #### [facility] [address] [address] [address] Ramses Dumas Methodology: Comment Normal [facility] Comment on above: Result Comment: This liquid based ThinPrep(R) pap test was screened with the use of an image guided system. Performed By: #### C MP #### [facility] [address] [place] [address] Dr. Ramses Dumas Note: Comment Normal [facility] Comment on above: Result Comment: The Pap smear is a screening test designed to aid in the detection of premalignant and malignant conditions of the uterine cervix. It is not a diagnostic procedure and should not be used as the sole means of detecting cervical cancer. Both false-positive and false-negative reports do occur. . Performed By: #### C MP #### [facility] [address] [place] [address] Dr. Ramses Dumas Pathologist Provided ICD10 Comment Normal [facility] Comment on above: Result Comment: [id number] Performed By: #### C MP #### [facility] [address] [place] [address] Dr. Ramses Dumas Performed by: Comment Normal [facility] Comment on above: Result Comment: Gail Ruano, Client Engagement Manager (ASCP) Performed By: #### C MP #### [facility] [address] [place], [place] [id number] Dr. Ramses Dumas Reflex Criteria: Comment Normal [facility] Comment on above: Result Comment: See below for HPV testing results. . Performed By: #### C MP #### [facility] [address] [place], [place] [id number] Dr. Ramses Dumas Specimen adequacy: Comment Normal [facility] Comment on above: Result Comment: Sati sfactory for evaluation. Endocervical and/or squamous metaplastic cells (endocervical component) are present. Performed By: #### C MP #### [facility] [address] [place] [address] Dr. Ramses Dumas Vital Signs Date Time Vital Sign Value Performing Clinician Facility 04-05-2025 13:06-0400 Body mass index (BMI) [Ratio] 29.86 kg/m2 Jefferson QUIQ Work Phone: [facility] 04-05-2025 13:06-0400 Body weight 83.92 kg Jefferson Bernie [employer] Work Phone: [facility] 04-05-2025 13:06-0400 Diastolic blood pressure 72 mm[Hg] [facility] Work Phone: [facility] 04-05-2025 13:06-0400 Systolic blood pressure 124 mm[Hg] [facility] Work Phone: [facility] 01-29-2025 09:23-0400 Body temperature 98.1 [degF] Luis Felipe Delacruz MD [facility] [employer] 01-29-2025 09:23-0400 Diastolic blood pressure 86 mm[Hg] Luis Felipe Delacruz MD [facility] 01-29-2025 09:23-0400 Heart rate 81 /min Luis Felipe Delacruz MD [facility] 01-29-2025 09:23-0400 Respiratory rate 18 /min Luis Felipe Delacruz MD [facility] [employer] 01-29-2025 09:23-0400 SaO2% (BldA) [Mass fraction] 100 % Luis Felipe Delacruz MD [facility] 01-29-2025 09:23-0400 Systolic blood pressure 129 mm[Hg] Luis Felipe Delacruz MD [facility] [employer] 01-29-2025 06:00-0400 Body mass index (BMI) [Ratio] 29.01 kg/m2 Luis Felipe Delacruz MD Work Phone: [facility] [email or web address] 01-29-2025 06:00-0400 Body weight 81.5 kg Luis Felipe Delacruz MD Work Phone: [facility] [email or web address] 01-27-2025 10:01-0400 Body height 167.6 cm Luis Felipe Delacruz MD Work Phone: [facility] [email or web address] 01-22-2025 11:49-0400 Body temperature 97.7 [degF] Luis Felipe Delacruz MD Work Phone: [facility] [email or web address] 01-22-2025 11:49-0400 Diastolic blood pressure 75 mm[Hg] Luis Felipe Delacruz MD Work Phone: [facility] [email or web address] 01-22-2025 11:49-0400 Heart rate 54 /min Luis Felipe Delacruz MD Work Phone: [facility] [email or web address] 01-22-2025 11:49-0400 Respiratory rate 15 /min Luis Felipe Delacruz MD Work Phone: [facility] [email or web address] 01-22-2025 11:49-0400 SaO2% (BldA) [Mass fraction] 98 % Luis Felipe Delacruz MD Work Phone: [facility] [email or web address] 01-22-2025 11:49-0400 Systolic blood pressure 108 mm[Hg] Luis Felipe Delacruz MD Work Phone: [facility] [email or web address] 01-21-2025 23:45-0400 Body height 167.6 cm Luis Felipe Delacruz MD Work Phone: [facility] [email or web address] 01-21-2025 23:45-0400 Body mass index (BMI) [Ratio] 28.23 kg/m2 Luis Felipe Delacruz MD Work Phone: [facility] [email or web address] 01-21-2025 23:45-0400 Body weight 79.3 kg Luis Felipe Delacruz MD Work Phone: [facility] [email or web address] 04-10-2024 07:30-0400 Body temperature 98 [degF] MD Domingo Snyder Work Phone: [facility] 04-10-2024 07:30-0400 Diastolic blood pressure 73 mm[Hg] MD Domingo Snyder Work Phone: [facility] 04-10-2024 07:30-0400 Heart rate 75 /min MD Domingo Snyder Work Phone: [facility] 04-10-2024 07:30-0400 Respiratory rate 16 /min MD Domingo Snyder Work Phone: [facility] 04-10-2024 07:30-0400 SaO2% (BldA) [Mass fraction] 100 % MD Domingo Snyder Work Phone: [facility] 04-10-2024 07:30-0400 Systolic blood pressure 123 mm[Hg] MD Domingo Snyder Work Phone: [facility] 04-08-2024 22:44-0400 Body height 167.64 cm MD Domingo Snyder Work Phone: [facility] 04-08-2024 22:44-0400 Body weight 86.58 kg MD Domingo Snyder Work Phone: [facility] 03-20-2023 10:30-0400 Blood Pressure Location Nona RAYGOZA [facility] 03-20-2023 10:30-0400 Diastolic blood pressure 73 mm[Hg] Nona RAYGOZA [facility] 03-20-2023 10:30-0400 Heart rate 80 /min Nona RAYGOZA [facility] 03-20-2023 10:30-0400 Respiratory rate 16 /min Nona RAYGOZA [facility] 03-20-2023 10:30-0400 Systolic blood pressure 128 mm[Hg] Nona RAYGOZA [facility] Encounters Encounter Date Encounter [...] Start: 05-05-2025 End: 05-05-2025 ambulatory Vj Fraire [facility] Work Phone: Start: 05-05-2025 End: 05-05-2025 Departed Referred Vj Fraire DO -LAB [facility] Start: 04-24-2025 End: 04-24-2025 Bamboo steven Leiva MD Work Phone: [facility] Start: 04-24-2025 End: 04-24-2025 Bamboo steven Leiva MD Work Phone: [facility] Start: 04-24-2025 End: 04-24-2025 Postop follow up visit related to original px Patrick Leiva MD Work Phone: [facility] Comment on above: Encounter for remova [...] Start: 03-16-2025 End: 03-16-2025 ambulatory Adonis Guerra Facility:[facility] Start: 01-26-2025 End: 01-29-2025 Evaluation and management of inpatient Luis Felipe Delacruz MD Work Phone: [facility] Renal//Med Surg Comment on above: Bilateral ureteral c alculi; Acute postoperative pain Start: 01-26-2025 Emergency department patient visit DOMINGO RICHYane Facility:[facility] Start: 01-21-2025 End: 01-22-2025 Evaluation and management of inpatient Luis Felipe Delacruz MD Work Phone: [facility] 3C MED SURG Comment on above: Acute postoperative pain (Primary Dx); Renal calculus, left Start: 01-21-2025 End: 01-21-2025 ambulatory Domingo Snyder MD Work Phone: [facility] Work Phone: Start: 01-21-2025 End: 01-21-2025 Departed Referred Domingo Snyder MD Work Phone: [facility] Start: 01-17-2025 End: 01-19-2025 ambulatory DOMINGO SNYDER [facility] Start: 01-17-2025 End: 01-19-2025 Subsequent hospital visit by physician Octavio Shi Rn [facility] Special Procedures Comment on above: Arrived VUR (vesicoureteric reflux) Start: 01-05-2025 End: 01-07-2025 [facility] Start: 12-02-2024 End: 12-02-2024 ambulatory Domingo Snyder MD Work Phone: [facility] Work Phone: Start: 12-02-2024 End: 12-02-2024 Departed Referred Domingo Snyder MD Work Phone: [facility] Start: 06-16-2024 End: 10-03-2024 ambulatory [facility] Start: 04-09-2024 Non-patient / Non-visit MD Vicente Snyder Work Phone: [facility] Work Phone: Start: 04-08-2024 End: 04-10-2024 Evaluation and management of inpatient MD Domingo Snyder Work Phone: [facility] Work Phone: Start: 12-04-2023 End: 12-05-2023 ambulatory Nona RAYGOZA Facility:[facility] [place] Start: 12-04-2023 End: 12-04-2023 Patient encounter procedure Nona RAYGOZA [facility] Start: 04-10-2023 End: 04-10-2023 Patient encounter status Jefferson Gibbs DO Work Phone: [facility] Start: 04-09-2023 End: 04-10-2023 ambulatory Nona RAYGOZA Facility:CD:[id number] Start: 03-20-2023 End: 03-21-2023 ambulatory Nona RAYGOZA Facility:[facility] [place] Start: 03-20-2023 End: 03-20-2023 Patient encounter procedure Nona RAYGOZA [facility] Start: 02-16-2023 End: 02-16-[address] DOMINGO SNYDER . Facility:[facility] Start: 02-02-2023 End: 02-02-[address] DOMINGO SNYDER . Facility:[facility] Start: 12-26-2022 End: 12-27-2022 ambulatory Nona RAYGOZA Facility:[facility] [place] Start: 12-26-2022 End: 12-26-2022 Patient encounter procedure Nona RAYGOZA [facility] Start: 12-16-2022 End: 12-17-[address] NONA RAYGOZA . Facility:[facility] Start: 12-15-2022 End: 12-16-[address] NONA RAYGOZA . Facility:[facility] Start: 11-27-[address] DOMINGO SNYDER . Facili ty:[facility] Start: 11-07-2022 End: 11-07-[address] DOMINGO SNYDER . Facility:[facility] Start: 11-04-2022 Encounter for preprocedural cardiovascular examination DR JEFFERSON GIBBS . [facility] Start: 11-04-2022 Encounter for preprocedural laboratory examination DR JEFFERSON GIBBS . [facility] Start: 11-03-2022 End: 11-04-2022 Encounter for preprocedural cardiovascular examination DR DOMINGO SNYDER . Facility:[facility] Start: 11-03-2022 End: 11-04-[address] DOMINGO SNYDER . Facility:[facility] Start: 09-20-2022 Encounter for preprocedural laboratory examination DR NONA RAYGOZA . [facility] Start: 09-18-2022 End: 09-18-[address] NONA RAYGOZA . Facility:[facility] Start: 09-16-2022 End: 09-17-[address] NONA RAYGOZA . Facility:[facility] Start: 09-16-2022 End: 09-17-2022 Encounter for preprocedural laboratory examination DR NONA RAYGOZA . Facility:[facility] Start: 09-05-2022 End: 09-05-2022 ambulatory ORA BOND . Facility:[facility] Start: 09-04-2022 End: 09-04-2022 ambulatory DANIEL MONTGOMERY Facility:[facility] Start: 09-04-2022 End: 09-04-2022 ambulatory Daniel Montgomery CORN GRINDER.KEG WASHER Work Phone: Urology Comment on above: NO SHOW (Primary Dx) Start: 09-04-2022 End: 09-04-2022 Telemedicine consultation with patient Daniel Montgomery CORN GRINDER.KEG WASHER Work Phone: [facility] Start: 08-28-2022 End: 08-29-[address] ERWIN MOORE Facility:[facility] Start: 08-22-2022 End: 08-24-[address] DOMINGO SNYDER . Facility:[facility] Start: 08-13-2022 End: 08-13-2022 ambulatory ORA BOND . Facility:[facility] Start: 07-31-2022 Encounter for cervic al smear to confirm findings of recent normal smear following initial abnormal smear DR JEFFERSON GIBBS . [facility] Start: 07-30-2022 End: 07-30-[address] [...] Work Phone: Start: 01-27-2025 CULTURE, BLOOD 1 [facility] sarahy Arora DO Work Phone: Start: 01-27-2025 CULTURE, BLOOD 1 [facility] sarahy Hemphill DO Work Phone: Start: 01-27-2025 Basic metabolic pane l calcium total Kyung Miester CORN GRINDER - EXHIBIT DESIGNER Work Phone: Start: 01-26-2025 Basic metabolic pane [...] Cystoscopic laser li thotripsy of ureteric calculus Nnoa RAYGOZA Start: 08-22-2022 Cystoscopic insertio n of [...] Dermatology [address] [place] [address] Patrick Leiva MD [address] [place] [address] [facility] [place] [facility] Start: 04-09-2026 End: 04-09-2026 Patient encounter procedure [facility] Start: 05-29-2025 End: 05-29-2025 Patient encounter procedure [facility] [place] [facility] Comment on above: Arrived Start: 05-19-2025 Influenza vaccination Flu vaccine (Season Ended) [facility] Start: 05-15-2025 End: 05-15-2025 Patient encounter procedure 05/15/2025 3:30 PM EDT Office Visit [facility] [address] [place] [id number] Patrick Leiva MD [address] [place] [address] [facility] Start: 05-05-2025 Urine culture [facility] Start: 05-05-2025 Bacteria identified in Urine by Culture Urine Culture [facility] Start: 04-24-2025 End: 04-24-2025 Patient encounter procedure [facility] Comment on above: Arrived Start: 04-10-2025 End: 04-10-2025 Patient encounter procedure [facility] Comment on above: Arrived Start: 04-05-2025 End: 04-05-2025 Patient encounter procedure 04/05/2025 1:00 PM EDT Office Visit [facility] [address] [place] [id number] Jefferson Gibbs DO [address] [place] [address] Arrived [facility] Comment on above: Arrived Start: 01-22-2025 End: 01-22-2025 CYSTOSCOPY URETERAL STENT INSERTION CYSTOSCOPY URETERAL STENT INSERTION Renal calculus, left 01/22/2025 9:28 AM EDT [facility] Start: 01-21-2025 Urine culture [facility] Start: 01-21-2025 Bacteria identified in Urine by Culture Urine Culture [facility] Start: 12-02-2024 Urine culture [facility] Start: 12-02-2024 Bacteria identified in Urine by Culture Urine Culture [facility] Start: 06-19-2024 COVID-19 Vaccine ( season) COVID-19 Vaccine ( season) [facility] Start: 04-10-2024 [facility] Start: 04-08-2024 Referral to Supervisor [place] [facility] Start: 04-08-2024 Hospital admission [facility] Start: 04-08-2024 [facility] Start: 06-19-2022 Influenza vaccination INFLUENZA (#1) [facility] Start: 10-19-2021 DEPRESSION ASSESSMENT DEPRESSION ASSESSMENT [facility] Start: 2021 HPV TESTING HPV TESTING [facility] Start: 2021 [facility]ix [facility] Start: 2012 PAP TESTING PAP TESTING [facility] Start: 2012 Screening for malignant neoplasm of cervix Pap smear [facility] Start: 2010 Urine microalbumin profile DTAP,TDAP,TD (1 - Tdap) [facility] Start: 2009 HEPATITIS C SCREENING HEPATITIS C SCREENING [facility] Start: 2009 Hepatitis C screening Hepatitis C screen [facility] Start: 2009 HIV SCREENING HIV SCREENING [facility] Start: 2006 HIV screening [facility] Start: 2004 Varicella vaccine (1 of 2 - 13+ 2-dose series) Varicella vaccine (1 of 2 - 13+ 2-dose series) [facility] Start: 2003 Depression Screen Depression Screen [facility] Start: 1995 Polio vaccine (4 of 4 - 4-dose series) Polio vaccine (4 of 4 - 4-dose series) [facility] Start: 03-14-1992 COVID-19 VACCINE (#1) COVID-19 VACCINE (#1) [facility] Start: 1991 HEPATITIS B (1 of 3 - 3-dose series) HEPATITIS B (1 of 3 - 3-dose series) [facility] End: 01-24-2025 Basic metabolic 2000 panel - Serum or Plasma Basic metabolic panel Lab Routine Daily for 3 Days starting 01/22/2025 until 01/24/2025, 1 completed [facility] Comment on above: Daily for 3 Days starting 01/22/2025 unt il 01/24/2025, 1 completed End: 01-24-2025 CBC W Auto Differential panel - Blood CBC with Auto Differential Lab Routine Daily for 3 Days starting 01/22/2025 until 01/24/2025 [facility] Comment on above: Daily for 3 Days starting 01/22/2025 unt il 01/24/2025 Culture, Blood 1 [facility] Culture, Urine [employer] Comment on above: Release Upon Ordering for 1 Occurrences starting 01/22/2025 Cytology Cervical or vaginal smear or scraping study Pap Smear Pathology and Cytology Routine Well woman exam with routine gynecological exam Ordered: 04/05/2025 [employer] Work Phone: Comment on above: Ordered: 04/05/2025 Dermatopathology exam Dermatopat hology exam Pathology and Cytology Timed Neoplasm of unspecified behavior of bone, soft tissue, and skin Release Upon Ordering for 1 Occurrences starting 04/10/2025 [employer] Phone: Comment on above: Release Upon Ordering for 1 Occurrences starting 04/10/2025 Dermatopathology exam Dermatopat hology exam Pathology and Cytology Timed Neoplasm of unspecified behavior of bone, soft tissue, and skin Release Upon Ordering for 1 Occurrences starting 05/15/2025 [facility] Work Phone: Comment on above: Release Upon Ordering for 1 Occurrences starting 05/15/2025 End: 01-22-2025 Glucose [Mass/volume] in Serum or Plasma POCT Glucose Point of Care Testing Routine One Time for 1 Occurrences starting 01/22/2025 until 01/22/2025 [employer] Work Phone: Comment on above: One Time for 1 Occurrences starting 03/2025 until 01/22/2025 Human papilloma viru s DNA [Presence] in Unspecified specimen by Probe with amplification HPV DNA probe, amplified Microbiology Routine Well woman exam with routine gynecological exam Ordered: 04/05/2025 [facility] Comment on above: Ordered: 04/05/2025 Oxygen therapy [Mini mum Data Set] Initiate Oxygen Therapy Protocol Respiratory Care Routine As Needed until discontinued starting 01/21/2025 [employer] Comment on above: As Needed until discontinued starting Oxygen therapy [Mini mum Data Set] Initiate Oxygen Therapy Protocol Respiratory Care Routine As Needed until discontinued starting 01/26/2025 [employer] [facility] Comment on above: As Needed until discontinued starting Patient Education Bipolar Disord er (DC) [facility] [place] Instructions Know your Meds [facility] Work Phone: Patient referral [facility] Work Phone: End: 01-22-2025 Stone Analysis Stone Analysis Microbiology Routine One Time for 1 Occurrences starting 01/22/2025 until 01/22/2025 [employer] [facility] Work Phone: Comment on above: One Time for 1 Occurrences starting 03/2025 until 01/22/2025 Stone Analysis Stone Analysis Microbiology [employer] Label Print 01/22/2025 4:44 AM EDT [facility] End: 01-26-2025 Stone Analysis Stone Analysis Microbiology Routine One Time for 1 Occurrences starting 01/26/2025 until 01/26/2025 [facility] Comment on above: One Time for 1 Occurrences starting 01/17 until 01/26/2025 Immunizations Immunization Date Immunization Notes Care Provider Beata moore 08-01-2019 influenza virus vaccine, unspecified formulation Nona RAYGOZA [facility] 08-09-2018 tetanus toxoid, redu franco diphtheria toxoid, and acellular pertussis vaccine, adsorbed Nona RAYGOZA [facility] 08-08-2018 influenza virus vaccine, unspecified formulation Nona RAYGOZA [facility] 06-19-2004 hepatitis B vaccine, pediatric or pediatric/adolescent dosage Nona RAYGOZA [facility] 03-27-2004 hepatitis B vaccine, pediatric or pediatric/adolescent dosage Nona RAYGOZA [facility] 12-18-2003 hepatitis B vaccine, pediatric or pediatric/adolescent dosage Nona RAYGOZA [facility] 12-18-2003 measles, mumps and rubella virus vaccine Nona RAYGOZA [facility] 04-10-1993 DTaP, unspecified formulation [employer] [facility] 04-10-1993 poliovirus vaccine, unspecified formulation [employer] [facility] 12-28-1992 Hib, unspecified formulation Nona RAYGOZA [facility] 12-28-1992 measles, mumps and rubella virus vaccine Nona [employer] [facility] 03-26-1992 Hib, unspecified formulation Nona RAYGOZA [facility] 01-18-1992 Hib, unspecified formulation Nona RAYGOZA [facility] 1991 Hib, unspecified formulation Nona RAYGOZA [facility] Payers Date Payer Category Payer Self-pay 2023 Private Health Insurance [employer] [id number] 2023 Unknown [id number] 2021 Medicaid [place] MEDICAID TERM 09/17 [facility] MEDICAID [id number] 2021-Present [phone] [address] [place] [address] Medicaid [id number] 1991 Unknown [id number] 2.16.840.1.992918.3.579.2. 593 1991 Unknown [id number] 2.16.840.1.264054.3.579.2. 593 1991 Unknown [id number] 2.16.840.1.569131.3.579.2. 593 1991 Unknown [id number] 2.16.840.1.288413.3.579.2. 593 1991 Unknown [id number] 2.16.840.1.141077.3.579.2. 593 1991 Unknown [id number] 2.16.840.1.121707.3.579.2. 593 1991 Unknown [id number] 2.16.840.1.083379.3.579.2. 593 1991 Unknown [id number] 2.16.840.1.594332.3.579.2. 593 1991 Unknown [id number] 2.16.840.1.151281.3.579.2. 593 1991 Unknown [id number] 2.16.840.1.352623.3.579.2. 593 1991 Unknown [id number] 2.16.840.1.288042.3.579.2. 593 1991 Unknown [id number] 2.16.840.1.372584.3.579.2. 593 1991 Unknown [id number] 2.16.840.1.135116.3.579.2. 593 1991 Unknown [id number] 2.16.840.1.075102.3.579.2. 593 1991 Unknown [id number] 2.16.840.1.241153.3.579.2. 593 1991 Unknown [id number] 2.16.840.1.065505.3.579.2. 593 1991 Unknown [id number] 2.16.840.1.871809.3.579.2. 727 1991 Unknown [id number] 2.16.840.1.404286.3.579.2. 727 1991 Unknown [id number] 2.16.840.1.972204.3.579.2. 727 1991 Unknown [id number] 2.16.840.1.857587.3.579.2. 727 1991 Unknown [id number] 2.16.840.1.353066.3.579.2. 174 1991 Unknown [id number] 2.16.840.1.256350.3.579.2. 175 1991 Unknown [id number] 2.16.840.1.190100.3.579.2. 175 1991 Unknown [id number] 2.16.840.1.522774.3.579.2. 175 1991 Unknown [id number] 2.16.840.1.637198.3.579.2. 175 1991 Unknown [id number] 2.16.840.1.242883.3.579.2. 718 1991 Unknown [id number] 2.16.840.1.663456.3.579.2. 1259 1991 Unknown [id number] 2.16.840.1.250778.3.579.2. 1259 1991 Unknown [id number] 2.16.840.1.859314.3.579.2. 1259 1991 Unknown [id number] 2.16.840.1.343957.3.579.2. 1259 1959 Medicaid [id number] 1959 Self-pay [id number] 1959 Unknown [id number] Unknown [id number] 2.16.840.1.131770.3.579.2. 531 Unknown [id number] 2.16.840.1.077040.3.579.2. 531 Unknown [id number] 2.16.840.1.794211.3.579.2. 531 Social History Date Type Detail Facility [facility] consumption [facility] Start: 1990 Sex Assigned At Not on file C [facility] Start: 08-20-2021 End: 04-10-2025 Tobacco smoking status Never smoked tobacco (finding) [facility] Tobacco smoking status Never [facility] Start: 01-22-2025 End: 05-15-2025 Sex Assigned At Female [facility] Start: 1990 Sex Assigned At Female F [facility] Start: 11-24-2024 End: 12-04-2024 Sex Female (finding) [facility] Start: 01-22-2025 End: 04-10-2025 Tobacco use and exposure Smokeless tobacco non-user [facility] Start: 01-22-2025 End: 01-27-2025 Alcoholic beverage intake Ex-drinker (finding) [facility] Start: 01-22-2025 End: 05-15-2025 History of Social function [facility] Has the [employer], or [employer] Guardian threatened to shut off services in your home in past 12Mo No Bon eRALOS3 (I/We) worried wheth er (my/our) food would run out before (I/we) got money to buy more. Never true Bon [employer] Start: 01-10-2024 End: 05-29-2025 Alcoholic beverage intake Lifetime non-drinker (finding) [facility] Procedure Code Equipment Code Equipment Origin al Text Equipment Identifier Dates Stent Uret 6fr L 26cm Percflx Hydr+ Tapr Tip Grad - [id number] ()[id number] , [id number] FDA Start: 01-22-2025 Stent Uret 6fr L 26cm Percflx Hydr+ Dbl Pgtl Thrd 2 - [id number] ()[id number] [id number] , [id number], [id number] FDA Start: 01-27-2025 Goals Date Patient Goal Desired Activity /State Functional Status Date Assessment Result Facility 04-10-2024 Functional status Patient at Baseline [facility] Work Phone: 03-20-2023 Functional Status N/A [facility] Mental Status Date Assessment Result Facility 04-10-2024 Cognitive function Cognitive Sta tus Patient at Baseline [facility] Work Phone: Clinical Notes 07-03-2022 [...] year, skin check documented in this encounter 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 04-24-2025 History of Present illness Narrative [...] Visit: as scheduled documented in this encounter [facility] 04-10-2025 History of Present illness Narrative [...] OF RIGHT UPPER EYELID Right Upper Eyelid [place] papule Favor possible stye, recommend patient continue [...] Visit: 2 weeks documented in this encounter 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/18/2018 Anxiety 07/26/2020 Bipolar disorder ([facility]) 06/01/2023 Dysuria 06/01/2023 Entrapment of left ulnar nerve 06/01/2023 Feeling of incomplete bladder emptying 06/01/2023 Flank pain 06/01/2023 Frequency of urination 06/01/2023 History of chlamydia 07/26/2020 History of gestational diabetes 07/26/2020 History of kidney stones 06/01/2023 Hypercalciuria 06/01/2023 Hyperoxaluria 06/01/2023 Intrauterine ([facility]) 02/18/2018 Lesion of ulnar nerve 06/01/2023 Mass of scalp 06/01/2023 Muscle pain 06/01/2023 Microhematuria 06/01/2023 Astigmatism 05/05/2017 Nocturia 06/01/2023 Overweight 06/01/2023 Pyelonephritis 06/01/2023 Kidney stone 06/01/2023 Retroflexion of uterus 06/01/2023 Sprain of calcaneofibular ligament 06/01/2023 Streptococcal pharyngitis 06/01/2023 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/01/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 06/01/2023 Superficial thrombophlebitis 06/01/2023 Term delivery with labor in third trimester ([facility]) 08/06/2018 Urge incontinence 06/01/2023 Urinary urgency 06/01/2023 UTI (urinary tract infection) 06/01/2023 Mass of left breast 01/08/2024 Resolved Ambulatory Problems Diagnosis Date Noted Encounter for gynecological examination (general) (routine) without abnormal findings 04/10/2023 Past Medical History: Diagnosis Date Abnormal Pap smear of cervix Anxiety and depression Bipolar 1 disorder (HCC) Bladder prolapse, congenital ([facility]) Dysplasia of cervix S/P VH (vaginal hysterectomy) 05/06/2023 Yeast infection HISTORY PAST MEDICAL HISTORY SOCIAL HISTORY Past Medical History: Diagnosis Date Abnormal Pap smear of cervix Anxiety and depression Bipolar 1 disorder (HCC) Bladder prolapse, congenital ([facility]) Dysplasia of cervix History of [...] nursing note reviewed. Exam conducted with a managing consultant clinical professor present. Vitals: Estimated body mass index is [...] them. Patient can also view results via [employer]. I reinforced importance of condom use for [...] Jefferson Gibbs DO documented in this encounter [facility] 01-29-2025 History of Present illness Narrative Patient given all discharge instructions and education. Patient and present for teaching. Patient voices she still has antibiotic at home and was instructed to continue to taking them. Patient also instructed to pull stent. Awaiting scripts from pharmacy. Images from the original note were not included. [facility] Office: [phone] Duncan Shelton DO, Rad Burks DO, Gerald [...] WAYNE, Felicita Rm, WAYNE, Pau Viera, WAYNE [facility] IN-PATIENT SERVICE [facility] Progress Note 01/29/2025 9:05 AM Name: Diana Barriga Acct: [id number] Room: [address] [place] [address] Day: 3 Admit Date: 01/26/2025 5:25 PM [...] results for input(s): LABALBU , LABA1C , C7MMEFF , FT4 , TSH , AST , ALT , LDH , GGT , ALKPHOS , BILITOT , BILIDIR , AMMONIA , AMYLASE , LIPASE , LACTATE , CHOL , HDL , CHOLHDLRATIO , TRIG , VLDL , RUT24UE , PHENYTOIN , PHENYF , URICACID , POCGLU in the last 72 hours. Invalid input(s): PROT , I8CWWLM , LABGGT , LDLCHOLESTEROL ABG:No results found for: POCPH , PHART , PH , POCPCO2 , ZSW9BQU , PCO2 , POCPO2 , PO2ART , PO2 , POCHCO3 , TIR7GEO , HCO3 , NBEA , PBEA , BEART , BE , THGBART , THB , XUK7MBW , IXYX1UJE , N5SMKIHH , O2SAT , FIO2 Lab Results Component [...] the original note were not included. [facility] Office: [phone] Duncan Shelton DO, Rad Burks DO, Gerald [...] Rogers MD, Johnathon Cerda MD, Makenzie Alberts, KEG WASHER, [place], KEG WASHER, Casey Mercer, KEG WASHER, Galilea Bradshaw, [facility], Ritika Villaseñor, KEG WASHER, Indu Montoya, KEG WASHER, Angelica Chaney, KEG WASHER, Vivian Kahn, KEG WASHER, Garima Balbuena, PA-C, Kyung Barkley, KEG WASHER, Hetal Morris, KEG WASHER, Yvette Canchola, KEG WASHER, Gail Greene, KEG WASHER, Dominguez Nunez, PA-C, Mar Sanchez, KEG WASHER, Cecelia Pearson, PROJECT COORDINATOR RN, Ivy Cortes, KEG WASHER, Felicita Rm, KEG WASHER, Pau Viera, KEG WASHER [facility] IN-PATIENT SERVICE [facility] Progress Note 01/28/2025 1:05 PM Name: Diana Barriga Acct: [id number] Room: 0321/0321-02 Day: 2 Admit Date: 01/26/2025 [...] results for input(s): LABALBU , LABA1C , M9LTAGN , FT4 , TSH , AST , ALT , LDH , GGT , ALKPHOS , BILITOT , BILIDIR , AMMONIA , AMYLASE , LIPASE , LACTATE , CHOL , HDL , CHOLHDLRATIO , TRIG , VLDL , GEU08GT , PHENYTOIN , PHENYF , URICACID , POCGLU in the last 72 hours. 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 Current BMI (kg/m2): 29 Estimated Daily Nutrient Needs: Energy Requirements Based On: Formula Weight Used for Energy Requirements: Current Energy (kcal/day): 6865-0064 kcals/day Weight Used for Protein Requirements: Current Protein (g/day): 82-92 g/day Method Used for Fluid Requirements: 1 ml/kcal Fluid (ml/day): 7346-7296 ml/day Nutrition Diagnosis: Inadequate oral intake related [...] determine Anastasiya Medel RDN, LD, MS Contact: [phone] Images from the original note were not included. [facility] Office: [phone] Duncan Shelton DO, Rad Burks DO, Gerald [...] Rogers MD, Johnathon Cerda MD, Makenzie Alberts, KEG WASHER, [place], KEG WASHER, Casey Mercer, KEG WASHER, Galilea Bradshaw, [facility], Ritika Villaseñor, KEG WASHER, Indu Montoya, KEG WASHER, Angelica Chaney, KEG WASHER, Vivian Kahn, KEG WASHER, Garima Balbuena, PA-C, Kyung Barkley, KEG WASHER, Hetal Morris, KEG WASHER, Yvette Canchola, KEG WASHER, Gail Greene, KEG WASHER, Dominguez Nunez, PA-C, Mar Sanchez, KEG WASHER, Cecelia Pearson, PROJECT COORDINATOR RN, Ivy Cortes, KEG WASHER, Felicita Rm, KEG WASHER, Pau Viera, KEG WASHER [facility] IN-PATIENT SERVICE [facility] Progress Note 01/27/2025 9:31 AM Name: Diana Barriga Acct: [id number] Room: 0321/0321-02 Day: 1 Admit Date: 01/26/2025 [...] results for input(s): LABALBU , LABA1C , B6IBKGU , FT4 , TSH , AST , ALT , LDH , GGT , ALKPHOS , BILITOT , BILIDIR , AMMONIA , AMYLASE , LIPASE , LACTATE , CHOL , HDL , CHOLHDLRATIO , TRIG , VLDL , PII17TN , PHENYTOIN , PHENYF , URICACID , POCGLU in the last 72 hours. Invalid input(s): PROT , U5JJQMN , LABGGT , LDLCHOLESTEROL ABG:No results found for: POCPH , PHART , PH , POCPCO2 , GAJ9KVP , PCO2 , POCPO2 , PO2ART , PO2 , POCHCO3 , MNF6YUE , HCO3 , NBEA , PBEA , BEART , BE , THGBART , THB , KOR6AFY , LRNY1OEB , O0VOFJXB , O2SAT , FIO2 Lab Results Component [...] CREATININE 0.9 Recent Labs 01/26/25 1753 [address] [place]* PHUR 6.5 WBCUA 20 TO 50 RBCUA [...] PM EDT documented in this encounter [facility] 01-29-2025 Hospital course Narrative Images from the original note were not included. [facility] Office: [phone] Duncan Shelton DO, Rad Burks DO, Gerald [...] Rogers MD, Johnathon Cerda MD, Makenzie Alberts, KEG WASHER, [place], KEG WASHER, Casey Mercer, KEG WASHER, Galilea Bradshaw, [facility], Ritika Villaseñor, KEG WASHER, Indu Montoya, KEG WASHER, Angelica Chaney, KEG WASHER, Vivian Kahn, KEG WASHER, Garima Balbuena, PAAilynC, Kyung Barkley, KEG WASHER, Hetal Morris, KEG WASHER, Yvette Canchola, KEG WASHER, Gail Greene, KEG WASHER, Dominguez Nunez PAAilynC, Mar Sanchez, KEG WASHER, Cecelia Pearson, [facility], Ivy Cortes, KEG WASHER, Felicita Rm, KEG WASHER, Pau Viera, KEG WASHER [facility] IN-PATIENT SERVICE [facility] Discharge Summary Patient ID: Diana Barriga : 1990 ACCOUNT: [id number] Patient's PCP: Domingo Snyder MD Admit Date: [...] Physician Follow Up: Domingo Snyder MD [address] [facility] [address] Schedule an appointment as soon as possible for a visit in 1 week(s) Adonis Guerra MD [address] [place] [address] Follow up Renal US in 6 [...] narcotics Please call attending physician or hospital ross lift operator with questions Call or Present to [...] narcotics Please call attending physician or hospital ross lift operator with questions Call or Present to [...] the original note were not included. [facility] Office: [phone] Duncan Shelton DO, Rad Burks DO, Gerald [...] Barkley CNP, Hetal Morris CNP, Yvette Canchola, KEG WASHER, Gail Greene, KEG WASHER, Dominguez Nunez PA-C, Mar Sanchez CNP, Cecelia Pearson, KYUNG, Ivy Cortes CNP, Felicita Rm, WAYNE, Pau Viera, WAYNE [facility] IN-PATIENT SERVICE [facility] Discharge Summary Patient ID: Diana Barriga : 1990 ACCOUNT: [id number] Patient's PCP: Domingo Snyder MD Admit Date: [...] who was transferred to our hospital from [facility] for evaluation of flank pain. CT [...] Home Physician Follow Up: Adonis Guerra MD [address] [place] [address] Schedule an appointment as soon as [...] Your Medications These medications were sent to [facility] JOS[facility] MIGUEL - [place], [place] - [address] [facility] - P [phone] - F [phone] [address] [facility] [address] hyoscyamine 0.125 MG tablet oxyCODONE 5 MG [...] narcotics Please call attending physician or hospital ross lift operator with questions Call or Present to ED if fever (> 101F), intractable nausea vomiting or pain. Rx e-prescribed Pt should follow up with Dr. Guerra, in 1-2 weeks, for definitive stone treatment, call to confirm appointment documented in this encounter [facility] 04-10-2024 Discharge summary Note Date/Time April 10, 2024 7:10am [facility] [address] [place] [address] Discharge Summary Signed Patient: Diana Barriga MR#: [id number] : 1990 Acct:[id number] Age/Sex: 33 / F Adm Date: 4 Loc: Room: [address] [place] [address]: Arnulfo Aviles MD Copies to: [...] Dr. Fenton but wants to switch to [facility]. Along with this patient is in marriage counseling with her current and that today's session was not good. Patient stated she needs to be home to take care of her kids, the custody [place], and her marriage. Patient upset because she missed her son's play and has plans to take kids to [place] tomorrow. Patient denies any suicidal ideation denies hallucinations denies racing thoughts. Patient reports that there is no changes in her appetite or sleep. Patient reports that she feels fine. She has tried a lot of medications in the past and believes none of them have worked. He is going to [facility] for psych therapy. He wants to try [...] She has an appointment coming up with [facility]. She deniedrecent suicide attempts or self [...] Restriction Diet: Regular Instructions: Bipolar Disorder (DC), [facility] DC Instructions, Know your Meds [...] signed by Arnulfo Aviles MD> 04/10/24 0929 [facility] Work Phone: 1(338) 418-709206-22-2024 History and physical note Author Arnulfo ornelas [facility] April 09, 2024 9:09am Note Date/Time April 09, 2024 8:43 am [facility] [address] [place] [address] Psychiatry H&P Signed Patient: Diana Barriga MR#: [id number] : 1990 Acct:[id number] Age/Sex: 33 / F Adm Date: 4 Loc: Room: [address] [place] [address] Type: ADM IN Attending Dr: Arnulfo Aviles [...] Dr. Fenton but wants to switch to [place] [facility]. Along with this patient is in marriage counseling with her current and that today's session was not good. Patient stated she needs to be home to take care of her kids, the custody [place], and her marriage. Patient upset because she missed her son's play and has plans to take kids to [place] tomorrow. Patient denies any suicidal ideation denies hallucinations denies racing thoughts. Patient reports that there is no changes in her appetite or sleep. Patient reports that she feels fine. She has tried a lot of medications in the past and believes none of them have worked. He is going to [facility] for psych therapy. He wants to try therapy before any medications. 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 Medical History (Updated 08/14/22 @ 08:17 [...] provided. Documented By: Arnulfo Aviles MD 4 [id number] Signed By: <Electronically signed by Arnulfo Aviles MD> 04/09/24 0909 [facility] Work Phone: 1(162) 747-103306-02-2023 Hospital Discharge instructions Follow Up Care 03/20/2023 11:51:58 With:IDALMIS BORDEN, Nona Turner, URL Address: [address] [place], [place] [id number]- When: Unknown [facility] 06-02-2023 Hospital Discharge instructions [...] include: ?8 oz (237 mL) of milk, wtsylrj-syfzklbglwcd-izixg milk, and calcium- fortifiedfruit juice. Calcium-fortified means [...] ?Spinach (cooked), rhubarb, beets, sweet potatoes, and Cameroonian chard. ?Peanuts. ?Potato chips, croatian fries, and baked potatoes with skin on. ?Nuts and nut products. ?Chocolate. If you regularly take a diuretic medicine, make sure to eat at least 1 or 2 servings of fruits or vegetables that are high in potassium each day. These include: ?Avocado. ?Banana. ?[place], prune, carrot, or tomato juice. ?Baked potato. [...] magnesium, fish oil, or vitamin B6. Take eyhb-kig-kivtsur and prescription medicines only as told by [...] Casseroles. Pizza. Lasagna. Frozen meals. Potato chips. Belarusian fries. The items listed above may not [...] provider. Document Revised: 06/16/2022 Document Reviewed: 06/16/2022 [employer] Patient Education 2022 [employer] Follow Up Care 12/26/2022 08:46:46 With:IDALMIS BORDEN, Nona Turner, URL Address: [facility] [address], [place] [address]- When: Unknown [facility] 01-20-2023 NoteOPERATIVE NOTE OPERATION DATE: 11/07/2022 PROCEDURE: Mery endometrial ablation with LEEP. PREOPERATIVE DIAGNOSIS: Cervical dysplasia, menorrhagia. POSTOPERATIVE DIAGNOSIS: Cervical dysplasia, menorrhagia. ANESTHESIA: General. SURGEON: Jefferson Gibbs D.O. FULL FASHIONED GARMENT KNITTER: None. BLOOD LOSS: 50 mL. URINE OUTPUT: [...] taken to Recovery Room in stable condition.[id number] Discharge instructions Follow Up Care 09/25/2022 13:54:04 With:IDALMIS BORDEN, Nona Turner, DANYA Address: [address] [place], [place] [id number]- When: Unknown [facility] 12-01-2022 NoteOPERATIVE NOTE OPERATION [...] usual fashion. I started by passing a 22-Belarusian Olympus cystoscope per urethra and into the [...] removed. She was then transferred to a gurpahrump and wheeled to PACU in stable condition.[facility] [id number] NoteHNO ID: [id number] Author: Daniel Montgomery APRN.[facility] Service: ? Author Type: Nurse Practitioner Type: Progress Notes Filed: 09/04/2022 7:46 AM Note Text: The patient did not show up for this appointment. The patient did not show up for this appointment.[facility] [id number] History of Present illness Narrative* Daniel Montgomery APRN.KEG WASHER - 09/04/2022 7:40 AM EST The patient did not show up for this appointment. The patient did not show up for this appointment. [facility] NotePROCEDURE: XR ANKLE LT MIN 3 V COMPARISON: None. HISTORY: Sprain of calcaneofibular ligament FINDINGS: BONES:No fracture, acute abnormality, or significant arthropathy. SOFT TISSUES:Extensive lateral soft tissue swelling EFFUSION:None visible. OTHER: Negative. IMPRESSION: Lateral soft tissue swelling. No acute fracture Electronically authenticated by: GLEN PEREZ Date: 2022-07-03 07:09[facility] Future Appointments Appointment Date:03/20/2023 10:15:00 AM Scheduled Provider:Nona RAYGOZA MD Location:[facility] Appointment Type:URO Office Visit [facility] evaluation + Plan note Future Appointments Appointment Date:12/04/2023 09:45:00 AM Scheduled Provider:Nona RAYGOZA MD Location:[facility] Appointment Type:URO Office Visit Diagnostic Tests Pending * Electrolyte Panel 03/20/23 [facility] evaluation note* Diagnosis NO SHOW- Primary documented in this encounter [facility]* Diagnosis Onset Date Resolution Status Bipolar disorder acute [facility] Work Phone: evaluation noteNo assessment information available [facility] Work Phone: evaluation note* Diagnosis VUR (vesicoureteric reflux) Vesicoureteral reflux, unspecified or without reflux nephropathy [facility]* Diagnosis Left ureteral calculus- Primary Calculus of ureter Renal calculus, left Calculus of kidney Acute postoperative pain Other acute postoperative pain Acute cystitis without hematuria Acute cystitis Acute postoperative pain Other acute postoperative pain Urinary tract obstruction by kidney stone Calculus of kidney documented in this encounter [facility]* Diagnosis Hydronephrosis with renal calculous obstruction- Primary Bilateral ureteral calculi Acute postoperative pain Other acute postoperative pain Left ureteral calculus Calculus of ureter S/P cystoscopy with ureteral stent placement Pyelonephritis Pyelonephritis, unspecified documented in this encounter [facility] [employer] [facility]* Diagnosis Well woman exam with routine gynecological exam Routine gynecological examination H/O: hysterectomy Acquired absence of both cervix and uterus Night sweats Generalized hyperhidrosis documented in this encounter [facility]* Diagnosis Hordeolum externum of right upper eyelid- Primary Neoplasm of unspecified behavior of bone, soft tissue, and skin documented in this encounter [facility]* Diagnosis Encounter for removal of sutures- Primary documented in this encounter [facility]* Diagnosis Neoplasm of unspecified behavior of bone, soft tissue, and skin- Primary documented in this encounter [facility]* Diagnosis Encounter for removal of sutures- Primary documented in this encounter [facility] HealthcareHospital course Narrative No data available for this section [facility] progress note No data available for this section [facility] reason for referral (narrative)No reason for referral [facility] Work Phone: Reason for visit Narrative* Imaging (Routine) - Open Specialty Diagnoses / Procedures Referred By Luis grigsby Referred To Contact Radiology Diagnoses VUR (vesicoureteric reflux) Procedures FL VOIDING URETHROCYSTOGRAM S&I Adonis Guerra MD [address] [place] [address] Phone: tel: fax: Referral ID Status Reason Start Date Expiration Date Visits Re quested Visits Authorized [id number] Open 01/09/2025 01/09/2026 1 1 [facility] [employer] [facility] for visit Narrative* Auth/Cert Specialty Diagnoses / Procedures Referred By Luis grigsby Referred To Contact Diagnoses Urinary tract obstruction by kidney stone UTI (urinary tract infection) Ureteral calculi Luis Felipe Delacruz MD [address] [facility] [place] [address] Phone: tel: fax: [id number] [address] [place] [address] Referral ID Status Reason Start Date Expiration Date Visits Re quested Visits Authorized [id number] [facility] [employer] [facility] Narrative* Auth/Cert Specialty Diagnoses / Procedures Referred By Contac t Referred To Contact Diagnoses Hydronephrosis, left Luis Felipe Delacruz MD [address] [place] [address] Phone: tel: fax: [id number] [address] [place] [address] Referral ID Status Reason Start Date Expiration Date Visits Re quested Visits Authorized [id number] 1 1 [email or web address] Summary Purpose Family History Relationship Condition Age [...] or prosecute any alcohol or drug abuse patient[facility] Reason for Visit (unrecogniz ed section and content) Reason Onset Date Comments No Show 09/04/2022 No show Reason Comments Gynecologic Exam Reason Comments Suspicious Skin Lesion Reason Comments Suture / Staple Removal Care Teams (unrecognized sec tion and content) Neonatal Surgeon Relationship Specialty Start Date End Date Domingo Snyder MD [address] [place] [address] Referring Family Medicine 09/01/22 Team Status: Active [...] December 02, 2024 End: December 02, 2024 Neonatal Surgeon Relationship Specialty Start Date End Date Domingo Snyder MD [address] [place] [address] PCP - General Family Medicine 01/05/25 Neonatal Surgeon Relationship Specialty Start Date End Date Domingo Snyder MD [address] [place] [address] PCP - General Family Medicine 01/05/25 Neonatal Surgeon Relationship Specialty Start Date End Date Domingo Snyder MD [address] [place] [id number] PCP - General Family Medicine 01/05/25 Team Status: Inactive Member Role Status Dates Javi Tanner PA-C Attending Provider Active Start: January 21, 2025 End: January 21, 2025 Neonatal Surgeon Relationship Specialty Start Date End Date Domingo Snyder MD [address] [place] [address] PCP - General Family Medicine 01/05/25 Neonatal Surgeon Relationship Specialty Start Date End Date Domingo Snyder MD [address] [place] [address] PCP - General Family Medicine 04/13/23 Neonatal Surgeon Relationship Specialty Start Date End Date Domingo Snyder MD [address] [facility] [place] [address] PCP - General Family Medicine 04/13/23 Neonatal Surgeon Relationship Specialty Start Date End Date Domingo Snyder MD [address] [facility] [place] [address] PCP - General Family Medicine 04/13/23 Neonatal Surgeon Relationship Specialty Start Date End Date Domingo Snyder MD [address] [facility] [place] [address] PCP - General Family Medicine 04/13/23 Neonatal Surgeon Relationship Specialty Start Date End Date Domingo Snyder MD [address] [place] [address] PCP - General Family Medicine 04/13/23 Team Status: Inactive Member Role Status Dates Vj Fraire DO Attending Provider Active Start: May 05, 2025 End: May 05, 2025 Neonatal Surgeon Relationship Specialty Start Date End Date Domingo Snyder MD [address] [place] [address] PCP - General Family Medicine 04/13/23 Neonatal Surgeon Relationship Specialty Start Date End Date Domingo Snyder MD [address] [place] [address] PCP - General Family Medicine 04/13/23 INFORMATION SOURCE (unrecogn ized section and content) DATE CREATED AUTHOR 09/06/2022 [facility] DATE CREATED AUTHOR AUTHOR'S ORGANIZ ATION 02/19/2023 [facility] DATE CREATED AUTHOR AUTHOR'S ORGANIZ ATION 12/06/2023 [facility] DATE CREATED AUTHOR AUTHOR'S ORGANIZ ATION 10/05/2024 [facility] DATE CREATED AUTHOR AUTHOR'S ORGANIZ ATION 01/16/2025 [facility] DATE CREATED AUTHOR AUTHOR'S ORGANIZ ATION 02/03/2025 [facility] DATE CREATED AUTHOR AUTHOR'S ORGANIZ ATION 04/05/2025 [facility] DATE CREATED AUTHOR AUTHOR'S ORGANIZ ATION 05/09/2025 [facility] DATE CREATED AUTHOR AUTHOR'S ORGANIZ ATION 05/16/2025 [facility] EPIC Goals (unrecognized section [...] mL IV syringe (COMPLETED) 2,000 mg, IntraVENous, DECAL TRANSFERRER TO O.R., On 01/22/25 at 0930, For [...] Tamy Autohold - Reason: Unreviewed Transfer Orders)1027 ([facility] Unhold - Provider: Anastasiya Coates RN)1900 (Due - Provider: Sudeep Ordonez [facility]) enoxaparin (LOVENOX) injection 40 mg 40 [...] Comment: Pt. educated on importance and intent)0928 ([facility] Hold - Provider: [facility] [employer] - Reason: Unreviewed Transfer Orders)1027 ([facility] Unhold - Provider: Anastasiya Coates RN) ibuprofen [...] (Given - Provid er: Anastasiya Coates RN)927 ([facility] Hold - Provider: Tamy Autohold - Reason: Unreviewed Transfer Orders)1027 ([facility] Unhold - Provider: Anastasiya Coates RN) Continuous Medication Order 01/20/2025 01/21/2025 01/22/2025 0.9 % sodium chloride infusion (CANCELED) IntraVENous, at 150 mL/hr, CONTINUOUS, Starting on 01/22/25 at 0015 0002 (New Bag - Prov ider: Aundrea Beltre RN)0557 (New Bag - Provider: Aundrea Beltre, FELA)0928 ([facility] Hold - Provider: [facility] [employer] - Reason: Unreviewed Transfer Orders)1027 ([facility] Unhold - Provider: Anastasiya Coates RN) PRN Medication Order 01/20/2025 01/21/2025 01/22/2025 acetaminophen (TYLENOL) suppository 650 mg(Linked Group 1) 650 mg, Rectal, EVERY 6 HOURS PRN, Starting on 01/21/25 at 2346, Until Discontinued, Pain Mild (1-3), allowed for higher pain score per patient request, Fever, For temp greater than 100.4 F (38 C), Administer if oral route cannot be used. 09 ([facility] Hold - Pro vider: [facility] [employer] - Reason: Unreviewed Transfer Orders)102 ([facility] Unhold - Provider: Anastasiya Coates RN) acetaminophen (TYLENOL) tablet 650 mg(Linked Group 1) 650 mg, Oral, EVERY 6 HOURS PRN, Starting on Sat 4/25 at 2346, Until Discontinued, Pain Mild (1-3), allowed for higher pain score per patient request, Fever, For temp greater than 100.4 F (38 C), Maximum dose of acetaminophen is 4000 mg from all sources in 24 hours. 927 ([facility] Hold - Pro vider: [facility] [employer] - Reason: Unreviewed Transfer Orders)102 ([facility] Unhold - Provider: Anastasiya oCates RN) magnesium sulfate 2000 mg in 50 [...] Patients with CrCl less than 30ml/min 927 ([facility] Hold - Pro vider: [facility] [employer] - Reason: Unreviewed Transfer Orders)1027 ([facility] Unhold - Provider: Anastasiya Coates RN) morphine [...] Anastasiya Coates RN)0928 ([facility] Hold - Provider: [facility] [employer] - Reason: Unreviewed Transfer Orders)1027 ([facility] [...] Anastasiya Coates RN)0928 ([facility] Hold - Provider: [facility] [employer] - Reason: Unreviewed Transfer Orders)1027 ([facility] Unhold - Provider: Anastasiya Coates RN) ondansetron (ZOFRAN) injection 4 mg(Linked Group 3) 4 mg, IntraVENous, EVERY 6 HOURS PRN, Starting on 4/5/25 at 2346, Until Discontinued, Nausea, Vomiting, Administer if oral route cannot be used. 0001 (Given - Provid er: Aundrea Beltre RN)0554 (Given - Provider: Aundrea Beltre RN)0928 ([facility] Hold - Provider: [facility] [employer] - Reason: Unreviewed Transfer Orders)1027 ([facility] Unhold - Provider: Anastasiya Coates RN) ondansetron (ZOFRAN-ODT) disintegrating tablet 4 mg(Linked Group 3) 4 mg, Oral, EVERY 8 HOURS PRN, Starting on 4/5/25 at 2346, Until Discontinued, Nausea, Vomiting 0001 (See Alternativ e - Provider: Aundrea Beltre RN)0554 (See Alternative - Provider: Aundrea Beltre RN)0928 ([facility] Hold - Provider: [facility] [employer] - Reason: Unreviewed Transfer Orders)1027 ([facility] Unhold - Provider: Anastasiya Coates RN) oxyCODONE (ROXICODONE) immediate release tablet 2.5 mg(Linked Group 4) 2.5 mg, Oral, EVERY 4 HOURS PRN, Starting on 4/5/25 at 2346, Until Discontinued, Pain Moderate (4-6), allowed for higher pain score per patient request 0000 (See Alternativ e - Provider: Aundrea Beltre RN)0928 ([facility] Hold - Provider: [facility] [employer] - Reason: Unreviewed Transfer Orders)1027 ([facility] Unhold - Provider: Anastasiya Coates RN)1053 (See Alternative - Provider: Anastasiya Cotaes RN) oxyCODONE (ROXICODONE) immediate release tablet 5 mg(Linked Group 4) 5 mg, Oral, EVERY 4 HOURS PRN, Starting on Sat 4//25 at 2346, Until Discontinued, Pain Severe (7-10) 0000 (Given - Provid er: Aundrea Beltre RN)0928 ([facility] Hold - Provider: [facility] [employer] - Reason: Unreviewed Transfer Orders)1027 ([facility] Unhold - Provider: Anastasiya Coates RN)1053 (Given - Provider: Anastasiya Coates RN) polyethylene glycol (GLYCOLAX) packet 17 g 17 g, Oral, DAILY PRN, Starting on Sat 4/25 at 2346, Until Discontinued, Constipation, First line therapy for constipation 0928 ([facility] Hold - Pro vider: [facility] [employer] - Reason: Unreviewed Transfer Orders)1027 ([facility] Unhold - Provider: Anastasiya Coates RN) potassium [...] dilute if GI adverse effects occur. 927 ([facility] Hold - Pro vider: [facility] [employer] - Reason: Unreviewed Transfer Orders)102 ([facility] Unhold - Provider: Anastasiya Coates RN) potassium [...] half and each half swallowed separately. 927 ([facility] Hold - Pro vider: [facility] [employer] - Reason: Unreviewed Transfer Orders)1026 ([facility] Unhold - Provider: Anastasiya Coates RN) potassium [...] with CrCl less than 30 mL/min. 927 ([facility] Hold - Pro vider: [facility] [employer] - Reason: Unreviewed Transfer Orders)1027 ([facility] [place] Unhold - Provider: Anastasiya Coates RN) prochlorperazine [...] Balwinder Ashton RN)1440 (DEC Hold - Provider: [facility] [employer] - Reason: Unreviewed Transfer Orders)1744 (DEC [...] Balwinder Ashton RN)1440 (DEC Hold - Provider: [facility] [employer] - Reason: Unreviewed Transfer Orders)1744 ([facility] [place] Unhold - Provider: Balwinder Ashton RN) 1203 (Given - Provider: Maryam Avila) ondansetron (ZOFRAN-ODT) disintegrating tablet 4 mg(Linked Group 1) 4 mg, Oral, EVERY 8 HOURS PRN, Starting on Julia 01/26/25 at 1726, Until Discontinued, Nausea, Vomiting 0806 (See Alternative - Provider: Balwinder Ashton RN)1440 (DEC Hold - Provider: [facility] [employer] - Reason: Unreviewed Transfer Orders)1744 (DEC [...] or Central Line = 20 mL/lumen 1440 ([facility] [place] Hold - Provider: Tamy [employer] - Reason: Unreviewed Transfer Orders)1744 ([facility] [place] Unhold - Provider: Balwinder Ashton RN) Linked [...] BE BASED ON THE PRIMARY CLINICAL RECORDS. [email or web address] provides no warranty or guarantee of the accuracy or completeness of information in this document.
== END 2025-07-11 09:27 | disposition home or self-care (01) ==
LOC: MRI 09:26
PROVIDERS: PCP Family Medicine; Visit Provider Family Medicine
DX: M54.12 Radiculopathy, cervical region (principal); K52.9 Noninfective gastroenteritis and colitis, unspecified
CPT/HCPCS: 36415; 72141; 80053; 83735; 84100

== ENCOUNTER 2025-07-11 16:00 | Outpatient (OUT) | payer OTHER, SELFPAY ==
--- OUTSIDE RECORDS SUMMARY | 2025-07-11 16:10 | XMS_ITS | CCD ---
Author Organization [facility] CliniSyil Care Team Providers Care Lead Atg Developer Name Role Phone Domingo Snyder MD Unavailable DANIEL MONTGOMERY Attending Unavailable DOMINGO SNYDER Referring Unavailable Domingo Snyder Primary Care Physician [phone] LILLIAN ., DR LANE Primary Care Unavailable [...] Unavailable BERNIE ., DR TOLBERT Attending Unavailable WINTER, DR GLEN Alford Consulting Unavailable BERNIE ., [...] KESHIA Consulting Unavailable GM HERNANDEZ Consulting Unavailable BENRIE ., DR TOLBERT Admitting Unavailable HOY ., DR LANE Primary Care Unavailable BERNIE ., DR TOLBERT Attending Unavailable BERNIE ., DR TOLBERT Consulting Unavailable RAYGOZA Nona R Attending Unavailable RAYGOZANona R Attending Unavailable RAYGOZA Nona R Attending Unavailable RAYGOZANona R Attending Unavailable MD Domingo Snyder Primary Care Provider [phone] MD Arnulfo Aviles Admit Provider MD Arnulfo Aviles Attending Provider Domingo Snyder MD Primary Care Provider [phone] Domingo Snyder MD Attending Provider [phone] ADONIS GUERRA Referring Unavailable DOMINGO SNYDER Primary Care Unavailable Domingo Snyder MD Primary Care Provider [phone] Domingo Snyder MD Primary Care Provider [phone] Domingo nSyder MD Attending Provider [phone] Javi Tanner PA-C Attending Provider [phone] DOMINGO SNYDER Primary Care Unavailable JAVI TANNER [...] Unavailable Domingo Snyder MD Primary Care Provider [phone] Vj Fraire DO Attending Provider Domingo Snyder Attending Unavailable Dmoingo Snyder Admitting Unavailable Domingo Snyder Primary Care [...] August 16, 2022 11:38am 168 hr estradiol 0.89595 mg/hr transdermal system (14 sources) Estrogen Start: [...] as needed in the evening. 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 Dressing type: pressure dressing [facility] No Panel InformationOrdered By: Falguni Morris on 05-15-2025 [facility] Urine Cultureon 05-05-2025 Bacteria identified Cx Nom (U) ORGANISM: Citrobacter freundii complex (O:CITFRC) [place] Count 75,000 Aerobic ANASTASIA Charge (NMIC56) ---- [...] RESISTANT TO ALL B-LACTAM DRUGS. PERFORMED BY: [facility] [address] [place] [address] PATHOLOGIST ROTARY LITHOGRAPHIC PRESS OPERATOR CALLUM ALVA M.D. Normal [facility] Comment on above: Performed By: #### C UU #### [facility] [address] [place] [address] [place] IGP,APTIMA HPV,AGE GDLNon AGE GDLN ACOG TESTING Note . [facility] Comment on above: TESTS RESULT FLAG UN ITS REF RANGE LAB Clinician Provided Cytology Information Source.............Vagina No. of containers..01 ThinPrep Vial Age Algo ACOG Radha... FLAG LEGEND: L-Low Normal,H-High Normal,LL-Alert Low,HH-Alert High <-Panic Low,>-Panic High,A-Abnormal,AA-Critical Abnormal Performed at: 01 =[address] [place] [address] Shereen Caal MD, HPV APTIMA Negative Negative [facility] Comment on above: This nucleic acid am plification test detects fourteen high- risk HPV types (16,18,31,33,35,39,45,51,52,56,58,59,66,68) without differentiation. Performed at: =[address] [id number] [employer] Art[employer] Cannoneer: Shereen Caal MD, Phone: [phone] Performed at: [address] [id number] [employer] Art[employer] Cannoneer: Shereen Caal MD, Phone: [phone] IGP, APTIMA HPV, RFX 16/18,45 Note Abnormal . [facility] Comment on above: TESTS RESULT FLAG UN ITS REF RANGE LAB DIAGNOSIS: [A] 02 EPITHELIAL CELL ABNORMALITY. ATYPICAL SQUAMOUS CELLS OF UNDETERMINED SIGNIFICANCE (ASC-US). Recommendation: [A] 02 Suggest follow up as clinically appropriate. Specimen adequacy: 02 Satisfactory for evaluation. Performed by: 02 Tamiko Barrow, Chief Informatics Officer (ASCP) Electronically si... 02 Capri Boston MD, [...] <-Panic Low,>-Panic High,A-Abnormal,AA-Critical Abnormal Performed at: [address] [address] Shereen Caal MD, Interpretation and review of laboratory results Abnormal [facility] SPATULA-[facility]ONE VAG[facility] No Panel Informationon 04-10 Type of biopsy: [facility] Informed consent: discussed and consent obtained [...] sent for H&E Number of sutures: 2 [facility]Fire Type of biopsy: tangential Informed consent: discussed [...] taken Amount of lidocaine used: 1.0 cc [facility] Outside Recordson 04-03-2025 Outside Records [id number] [facility] Summaryon 03-23-2025 Coding Summary HTMLBase 64 SvidglabIIl7eIt+PGhlY WQ+RX6LQTClO91bwVSgnI 8cV2FRVFqVDkwuUHRALOf SIpIdygQzLO5wxRReMGKk IC8+SW6iMQEnNhivlNZti 8O2uFQ4A90cue3xXUliuP G5OABiOhDsosuqa0iodFw 6IDcuNmluOyBt UDErdW26JHR5iU48Rh08u EEbtQLux4izwZt3MvVaTQ IuNPG9wLqtOQvig7RhRTM jH16zvVRlf3P3 JLHigExksZNrOzXmqFV7x C0yEQijaacwo5ivvssbZn y5zq53sFPnp0B8xAK3R9I lwjY4OPActUYw XcipbGKKyJ5cjejve3siv aqcOaZaPVLcEJk8NOy7JY FghLudHjXaVK20OKQ1CNL irbVzE1BfTYHo hYroIhF1b4F7Al4NV6MBK hepJ4ECQZTJSFejiNL+PC 68ax45L5WeLzmuEsj6OVU cHIQ4jDR7lV0j YRZxIKkzh1B7iSU3O9Obv uQmog5cp5mfQVVxGKshH3 4alNDsd3B9HMGfiQB3UHA yzPmaTaEejY52 Oyc+QFVwlEqbw2YgNjjvt 1cen1yckKq2AjztRBFwjx HrmVttIIV6h0PgEf7uLOI umYR2xEL7xL8q XiWyRjA5MUufT597AzSub TPuGbifU01sY5AeySK+PH CrBer7KIYdkUapBD9oR0S hZGRpbmctbGVm aPlyOK5vKBEncqbnYBFoo C6eETFkQ6y1CzSvNmH3WL yuT0WpESXpzplfFc20aV2 bCpIcBnO4ZNrg G2VvxcK8RCTygNQsLFkpO GK2G39ih4L8IQUwBZRfOU H6lCM7hS5rfCqgazptbIF mdDsgdmVydGlj SIhqTDciM085BVBygFsoO kNvZGluZyBEYXRlOiAgMD YvMDUvMjAyNTwvdGQ+PHR kQUV2sZvkPMXj mYPhKIhqCe1xpRwcyEvbI O2vSMKlydjlPXTiqX3sFR PsqRKzzQohWN0dSUDmoda nu295FyOjAUJ4 FMJdaCIrZ6CaeW3qAbQqI ERvUUMeV8UxbTVvAYzuG5 41RSnpGdV1BJGdjqOoY4S sLWFsaWduOiB0 k2G2Co7Tw2OdxychC9Wgt VNaDnAiEbwgTTv3E6ObLr wvdHI+SM19KAYzYN35HQl 2FBG2iBijPKpe YVBcH8GoqJ5aMcOkGTHfT GRkOyc+PHRhYmxlIHdpZH RoPScxMDAlJyBzdHlsZT0 tSl4xXXQyRSFi qOqmsUQmYsFhg0ycZHDwU KqrPE4nhZmbZ9XaeMY0XW Tsm3o3Qw59O76wR5GvoBT +LYMwoKZ1jPH4 iP0dFaQxQkR8CHxjO378U aHzgIXhLaghi2srz7cogV j6VyO8KTGsydYebRphDTX 4r9DeXa23F09x IHdpZHRoPSIxNSUiIHZhb Mprfm4nfD0gLd3+PGNvbC A4gYX6sD4hXnObPcX6DMw pD599UzBdtHLx Arjjt3jzs1frmCe5BeCnD FKkeiSmrUreRWP6z3SxNw 52E1HpdIpth6FeFom4xu7 5nOVpq3O3qXW8 D0QnNDLbwrpzgWMfjRjvW R7hCELiedisQOBflN9bGD XcQ6k8AyQpIsF5CQrfN1Z cgpF2AQCtaXZi ZFJejMTNeZ9vlleyy7kmr gogVrSbAFFaDDs9ARk5KU UvdKxtNeKoGCE2TbN6GWJ 6bWCafL9ybDvh lqwcjF1qVpg+XSQ4cRCsq RJYQU2xAlwbjGZ+PHRkIH K0rOkiNEkwDNRquO6zWWU qG5b2ByEgYzU9 YEfaX0EkrzK4VUXvoWWqM RZhwVYUwE4nmruvt6maqj wtSmImLOPrENl2IYj6OIQ saWduOiBsZWZ0 IfU4WAQ6aDXcaO7eeVgsi bwjwY8eOxz+QmlydGggRG L8NQq2L3YhMln3PHJqnUv zOT7oxPNuBEau Sb7ldZzlfKiaHW6qJFWxr vncv997WgIog2exEVHkaJ PgOPaoMXR9H14up2F9FZI aDXVwTVM7tQK5 fG1wtMwyudhdjQYegXsdh sChxVfoYWexHJsvB098GC YitVzwZxLdWUr6P1QiAly 4IQMvfBhxKL2x jENnKUxoGs5plBzdrJtoE S2mAIVeomhrm886YuDax5 ceOQYgdPBtQJqeYON5Z31 oc4O3CETzXZQu NZG7lIN5tO1wwSmydyimg GVmdDsgdmVydGljYWwtYW nsE818QMZfxNhdTpYhqCm 0L1DyDgz0JKBc kGvgEL9ciHOgRCufDt3ve SezrVeuVY3fRBWstdvqf3 39YoHmr6iiIONhxFLdCQi xIHK2W87bb1U3 BJBvQRYcQSE1yXC8mR2nb GlnbjogbGVmdDsgdmVydG bxXYarPAmaC432JODkrAq nPlBhdGllbnQg JBboVGa1P1KtAclooQM+P B89GNBcHG74oZXfvNMhq2 yloUc0GlMfOKNeHEM5nUd oWFoci6NhYKEz Q63zvECsp9I8SIDqiUguc CRsMyMjhGN8hE5xGWbfko aks1tybjjjHtslq9kxqa4 7kM17O08wMTzt ZHRoPSIzMCUiIHZhbGlnb e8nkS8mRz7+OTUxvSO5qI O7nZ3tCTDbOzR9CYhdL97 9InRvcCIvPjxj e9zlt1swcBl6XaR0TYLlu pGskHjpMVA4l0CnHk53C4 9sIHdpZHRoPSIyMCUiIHZ kmGtrxc8ceT6w Ii8+XXHexPI4fLK8jY4nK kOqCnQ9BMrqE628RmIsmY KwTqbcL52aR2IviVW+PHR aDhb6BQSogDla AW8udNTeNSxeUn2mXAF0P aWeJxNcFKdiZ1FpPXWmjw ltplspgNB9KUFzHOHenL8 3Kz0kfQeoUJBw qVXRkA8wbsrnv1xbvdlsV tPcPIIpPRf9MJd8BTBizR nhOhGsGZR2OyJ0MYB5xTY loT4hbFmntdlp qF1dR2TcQZZhjceySj64c A3fIdBhJsJ3FCdcTzo+TU 8BQXslI3LSUNMAQVVEM2N LKR11I2QbIkj1 MAJuoQetTC2omYVdQTmgH w5okHecrFdxHN8cQXZhms yeJKBpmJ7hZYJazDRavTs tII3zQWItprzp f748DdBwFOG2ANXbbGMaN 6DkaK4jXwJxZUAcNEMfX2 AskCGeZPthD275TCrrFpN 4WVZzsbMlZ6Vy LVArwAoqFzG6z6A9He8sQ V0cOy0gLFsyKT06HS12kC Goa4F6cNU1N4FcHBLohpl hxrkobRD0AIDp BBEwhM58rBAqJZvcUm6na 0A9p486BFLzPONxgE76Fd 9bbTdsKTYaqUPCnX8ccut wy1kgmwxlYnVx EFRhMEo6KMy9MEVbkUpfH jQvTJO3ZzG5ICE0iQUttE 5qwMnynheklN2qNna+MzM xHVIklhI9A1Kg Dtp3XNVtyCjuKU0lrQJnU OfiFm1xuIqesJagPK8fAN KuqicbBMFbtE4vKPNpeYC stIuvLA7eQAZt nxnyq023WnVoDJD9OJHbr KVnP7HjbJ0lJfRfEEAcXM KpM4MxbSYuCApcH908MAi hMmD7NVWwslPg R3TnWBBfhQdwDjT1k3W0C m6LHL6VNZR2F5SwLcl7SD MzbSimTD4muHKaVXjrPa4 iqWniqSwvCW4f XVGhmvwpLXSxrU7mCLUwa RIceGcfIF1nJSYkemsax8 74UpFeUBR9DLSpwWAiW7N acN1iJsSuJCGg DEAwD0BpjXLfSFmdP583Z FcaTnW5DXTybwCmG8IcYT UjbOhiEgX9v8Q0Ao4EQEs vdGQ+PF28yg14 R9ZvAoyuZta1PQAaTAV2o NX1uR2rFHZvOPrec4V7sU J6H7GmghZfer2mb5ejHDK qZUjwM19ekEHp h5J1SKVwxGO3HYGbsFofD uWqfZ84Ovr+PGNvbGdyb3 KeEiamd6fxf7uieWa6GcL wJSIgdmFsaWdu IAN3y9VpDv59Q44uWOtiE HRoPSIzMCUiIHZhbGlnbj 7lkD1tDo4+IZKohDX7gAD 2sO9dWoCuKjX5 TIlkV480MtCieNApVpviq 6rbr7fnaTg5EsHuMFFnpe OymXldUBW9p0WxBq66Q7Y tvCzuh9AhHrs9 va52eEKxz6X9uRS8F8JqE GFjmigrjFJxhSguZA4wHG LsflneMZDnyX9yYBWcE6t 2NzIyQiI1XLqm Z4CywrL9WTFrqKWzVXCrt XIPbL7vunzps0loqcrvPe XiCDKiNKj9EKm7LPMwuSx xCiJsXEQ7YlG0 ISO7tBEedK6bzLmbdwzuc G9wOyc+MJn9k8qtkDHiUA 0lrYE4YR72JD00wCLwc1H 7nSR3W4YuERCf nvkcqnhkmYX8KADoWCMzc A67Rj6wyZdhNp0nBMAjSY Z9YRKrwYPtB0NfxK4pSyL aDIIaTVGkD8On iTHoMEnjE876KJsbMlC3E ROrtmUvT1DuIIUvqRagPz Y9e5O3Xo8AJH17PY57TI9 5nZBqn8L5dHH5 M9ZjXUVmxnvjaboioSO3G HZgFAGqlJ54Ng4dbOpoWr 8xPURqTLX4AVBdzXNyC8B stX4zCzSxAOVk YWPsB1VnoMVdISijR983L WvvFiX8FOCzkcDqH5EpDS FjwYxlBfM8k5A9Bb3VOk5 3KI89AC22rZOs n5E5vOE6U7AaPSZzhyotl kmcfDP9TBGiFCEakW88Ui 7dbJqeGk9uCAWeJOQ6CTM luTXnE5CecP1n CkAoYOKdLHLuW5OxlZTyP YgcT867OTphCkH3QIIiyr KdM3PpDXMkhJqkOtH9m2G 5Ai9NAKjaypj3 T6FxSjhotAF+LG07GCIsI X57oRSsqLSwe0xovWe6Ay FkAZGaMPZ2rVwsBYpct2X yHPXqB21glUBl c2U (more content not included)... [facility] Provider Orderson 03-20-2025 Provider Orders [id number]. [id number] [facility] C Urineon 03-18-2025 C Urine >100,000 [...] <=2 Verified Tri/Sulf S <=2/38 Verified Normal [facility] Comment on above: Performed By: #### [id number] #### [facility] (DEFAULT) [address] [place] [address] Provider Orderson 03-16-2025 Provider Orders [id number]#1. [id number] Normal [facility] Cult,Bloodon 02-01-2025 Cult,Blood Specimen Description .BLOOD Special Requests Culture NO GROWTH 5 DAYS Report Status FINAL 02/01/2025 [facility] Comment on above: Performed By: #### B C #### [place] [id number] [employer]oneer: Alejandro Salazar MD Cult,Blood Specimen Description .BLOOD Special Requests RIGHT HAND 1ML Culture NO GROWTH 5 DAYS Report Status FINAL 02/01/2025 [facility] Comment on above: Performed By: #### B C #### [address] [address] [employer] Cannoneer: Alejandro Salazar MD Coding Summaryon 01-30-2025 Coding Summary HTMLBase 64 BhmtghkpCLq1wNl+PGhlY WQ+US8VIGPiW16rfGLeeF 9wL6WTLYrXOqxfXZICYCf KAcOryoQtKJ3qrVNwRPRt IC8+TM0eNZKkWbpypBJle 4O6eHN8E33wvq8gWJklnX J2OVToCnKctadyv5cctAa 6IDcuNmluOyBt ULVcxH86KDL1dZ51Kc32l AJzrZVbp0kncRd3WpCpJU GoJXD7zSicENwvd3AcILL kT73nrOPtc1D7 RBYkbKegpERqPoBcePQ0p X4cNBrtvrbrs5ztazmgJu h0xq69tWBvj0P2vCU2K4X hqmZ9QVDuwUXn RnvanWVNaD6ssxpna6qzm ienCrSgRWYuAKz3GPv8SM FjuKmmPaRkCI50HCI4NJI mywAkN7WtIZRj zQkfUpI6c3Q0Gh5MT9JIJ egqJ6SLJCGNNVhqpZA+PC 22jb77M6SeMnrdPtw6AGW zRIE1yBU6oW3j CJTxGGkej6C1vTC1P4Xzx eUfzh7le3ocHYDaDWecV9 5plPUcf3Y6GUUxgFM9SAA jzFocWaQwfI08 Oyc+XLWyaEgpl4ErAjmlm 1tsz8ogcQr2JzeeQWHmcj AioNndNHM2v0PiDq3nTYA aqRR9wCK8bR4s SiSqZuW3WUnbY777SaVhh NHiIgjfJ26zK1UddHO+PH WaIxb0XIXlrUcpDH9xN5B hZGRpbmctbGVm pXlqKP0kGOBfrzjfUHSni E4mBHXvU7v1JkNdMoK3PN sqV9TqFQRcyegvQt34sQ8 vEcFoHdO5KEyo S0XuwsI6QHDjwWBkHEocI WQ1U71cq2P7PNZgDYRcYX P1zES9pE9beGjywmypuXR mdDsgdmVydGlj DLewDKriU024XFDovIuuJ kNvZGluZyBEYXRlOiAgMD QvMTQvMjAyNTwvdGQ+PHR uQFJ8nElbZPRa aMNhTLkoMb7ilPwsvMctN F7dVAFkyzfaJRIooK7dMZ DypRCmeUrlBR7fXSOhxff vt140PjNhKCF1 CLRtqPBlV9LwnA7mWfZvJ TYsCSUjF3IrjFYdFCjlW9 74RCscXrW5KMZicxXaL3Z sLWFsaWduOiB0 e8G1Kv3Nj8PscxjoF8Cmx HTaQlAwFwmqPMq8T7BuYp wvdHI+ZH61DLBjHP16YNs 0LUJ4wRgxKFgy CKNbZ8RufK4hJmEeKPYlD GRkOyc+PHRhYmxlIHdpZH RoPScxMDAlJyBzdHlsZT0 tLi2sRNHvSCAi iZputUSjOsLnt6vdLDOtE EflZP4kcSmyO0NjlMR3FT Cjv9p5Pj16I84qI8CykHL +XXGtxBX5kDX8 vV7fUzVqPaO9MDfoG876B jWhnDPyOyvfm8hyg1onhC p5KtW6IKHfvfFjtNlqTAB 2o1VsVh69S83x IHdpZHRoPSIxNSUiIHZhb Jgsik3coC4jLe7+PGNvbC H9zPX7uE6dFtVuVxA2MVn qG726TvFrqLMz Mtdye0oqt7snoKd4MgYsY UHhttUpnZewKWJ1v9WjYh 24Q8QviEels8ZvIvy1xm7 1nTNxg3H1wFC4 T9RoJPBonvpykTBliFdaZ Q0zRJAwtwctNGGvrD0vOW VlN0w5WlCkAeU1MGtlG3Z xhgG9KVRosDQi AGSzcUDFcN5ftahts1hmf fviZqCvVKCyASf9FJj6MK OxjFhpChGtGZV5PuK9LJP 9iKPckR7ftBhv ffiehV2bZyg+XKF8mVNpl QHWGR1hPpyuqPN+PHRkIH P5wVkmMPqvWZSfkJ4hMUX nX7x8NfTaYnC8 FOykW6LqbkN2UNOwfKXkO DXowHKJlF8ykxbea8syps buWrBvWBTfFTa9NKp9SWC saWduOiBsZWZ0 DyI5PES6tBKmwD0eeXhjt sjaxL4jIyw+QmlydGggRG F0BEh9P4TvDtk8UHOafHv qVR7udPVeRUrx Wg8rwHayvQjrMU7yILSxz phvg513YlCxm8paBNKdzD YrOBvdGMK2B43db5K2DKW jBYStTOX3lSK1 mH9cbCardwlexCNjlWurr lVrqBtfIOduCWghK945QZ HdsAneQvWjWBj7M8ZfCdj 5OLDleExcVC7n iJDpTVnoJe3xgDybaRasB D3zKMLcfhjxp630ZjUmv9 vuWMTcwSRbGIxxCZT3M78 xg3T0IBOpDXDc KDH4kGL5rP3ijUotmomqu GVmdDsgdmVydGljYWwtYW jgJ387GGBqsWzuYzBntUx 3K4SePan0TUVs iMxwAS8ktPBvVYqkBm2kz VsnuOjeET1aPNUgtadwn6 59BmKrs2dsEZUpcHHiVMx oSXX3L66na9X0 PFKqCZJySSL2gYM9pF7wo GlnbjogbGVmdDsgdmVydG inUKfpBKmdT950TQZrlSq nPlBhdGllbnQg ZRodUGa4S2MzTrbjpLJ+P K78DNLtPO45eXUjaAUxw3 wkcLg5ByUfVDVfIHO0kJj qOCwmo8VbZUBu Z57mtNQwz3N3ETHtoOfps NLnMfCkzCT4gG5sELckzx kyz0dccbupFafiz1uqrl1 0lI01E64sSDbc ZHRoPSIzMCUiIHZhbGlnb x6nsA8pBb4+NKOxhSS9sL D7cW5kAQCkYtT8SRkpF00 9InRvcCIvPjxj i5myx2vkkTi1DfH9PAFlz jZkyLwsIDE7p7OoIz22I3 9sIHdpZHRoPSIyMCUiIHZ esXtkiq0gbK1a Ii8+FLRrfLO9uON5kD9mT gRgRsJ7FXooQ112BhBjqE VsHlhzT68nL8NmpVU+PHR mQxi3CATwzUsn IZ7dfHJeCGapCw3cYWT3C fKwGkQeZMfjS1AuSNFfww uphnmalGT5DRPzPDCamU9 7Pe9itSclOBEs gUAYxQ6kmfjvn9czeaevK yFxEGWfQHc6MLx9JOSgyF ykJbUxWIO5OmU6RMB8bXU rjP9jaEjmkdir pJ4pR0MtCEOiqqngJc78h J8jQgIpZgT5QOhkHmn+TU 2HNWqaV0KJQZIFLZSKW4Q MCQ43P3MmXev9 OFGdzBjxNW9hxVLuGQmjQ w6nbOsrrIppFF6sQFCmds upRRAlsI7vNMIquABhzKf vLI3hGPStmgan a779HsPmJNA0XEQkuXFoB 5PlwE5lTvJcWKTjMZBhE8 LyvTZjIDwoA514LPewAmE 3KQUlofEqA3Jt JDHqjUgdWfG4z6F8Ea1lO M7vDx7ePYezGY56OQ28dU Vtu7S9aVP4Y4UbLKXkhln dchabtKJ4SKMg FTOxtH56eFRiUFxwIs2xg 2A8w014WMQlIEOsfX82Gp 1dxYpxUWZymAZUvC2kqxu sp3gwnbwuEhGv HTZkZAt0UWi3WCDsmGqkQ xJnDPE4UyI5ZUE3xXXnlU 1jsAnohvluvA5aYdb+MzM dDEOewxN5E4Hd Icr1VDAtrJkkFS0cpMReJ LuwJo3jbAkrtKtlOM4nVS LeipkcSBHksR4xNBBqrBS fuZnsYH8aKSIq kfokj358LfExLXS9WOEyk RLrG7SenU0oYfXiDHZkJC ZjA3PzoUPpDMepC712GMi yGxE6AJAtsbIc L8QeGMSxjIavVaX8y3J9U l7RLV3RDUT8C1OxOvd8PY GgaUayBH9znGRzPVwnNc9 xyLtxtVdlAY4r TXXhlconNTZcnT6qXAHfa UFexPquKN9mOWSbcbzds0 54GqJhBND2RVDoyBUtL8V xtB6kMjFxMYLc MESqY3AbhOEzKDerC460J EeeEwV6QSDaiuDqW0SxHS RphRzxChV5f2G3Lc2SwAW lF7BxL3u6J9Fv PjwvdHI+GR99SXZuFJ97s TYoqDJks5gixWr4FmNhBM QaCDR2cPykCQumk0FbDLK wH52fmUFvp6B9 WQBxnSwfaIBcYvMspMS7g I7xSBcqiddmz4vfewepNx opg1khsr40pH79B50rYBz pZHRoPSIzMCUi ULBnoDrveb1zrU5xWp3+P SBguVM5pQY6qX6aQeLnLb U4XUqoI210QbWvkYAdGep pk4hpl2ryhEo9 HqPmSVBvhnBfhRslGMO3b 3YtKd61S28cUTlsGVPkHH VbZZQgWVExjChcml8neN3 wIi8+QW1ug6mf tl99fA55sDQ+SJXrNBH5r YluBXfoGKHlkP3xRSwhDa M0LCEbItUvoD41qZTfBNk dRd0wgMjanYuc WU9sNPYncumbl799XrJez 2lgRVCyoSUaXUwyCZC4C1 3lj8J0KNHwRUOyHMT0yYK 7cE0deGwvqzby bGVmdDsgdmVydGljYWwtY XvbF968DIPlzTxdNjFxtD XeT0gyxrRVKC3pYgscwBZ +WRNaXAZ9dDaw IFfxGEJzpT0tFJFpR1c7P rIvRiG7VLixD4ZljbY7KZ GqwZAfRFKhpTNIaM9aiap au9ytvtycNgFe FYLaJEu5RTg3OTVpaVmzI gDdXRS7AtJ6GUF7dQThnF 3vwUldfsekhB4jDmu+Rkl OOjwvdGQ+PHRk YSU3iQagZDhhWJZpnT6xE XJjS9v3VjNsObM6BCgqX0 KyatR0KKYyoEVzTYIjmSM XxF6fmueuq4kf jrjmYlCxVZPoMTn2LWq0L NTboFjvNdJbLMI7ZqY9MC W3oSMjjC8ruRpadlzwiO9 wOyc+TVJOOjwv dGQ+EQLlIYD1iPqzYDlpR IOkwX2jHZHlD3t1OeQoQj I0PZnzN3WmfwD9VXLtaTW dGOHdfYMBaZ4r ephfd9gbdmcyVmVkBBWtZ Ui2JIb0IMIllBocKoLrVG L7IcP3TAS2oYQorZ5puEb fnpccbN3jCsu+ GBD1EVJ5YA66VM37W7UzV jwvdGFibGU+PHRhYmxlIH dpZHRoPScxMDAlJyBzdHl wQT1sWo1aZKYg LWN (more content not included)... Normal [facility] C Urineon 01-28-2025 C Urine Urine Culture ordere d as a result of parameters set on specific urine dip and urine microsopic results. Mixed skin, or urogenital daiana. Clinically insignificant [facility] Comment on above: Performed By: #### [id number], [id number] #### [facility] (DEFAULT) [address] [place] [address] Cult,Urineon 01-28-2025 Cult,Urine Specimen Description .BLADDER URINE FROM CYSTOSCOPY Special Requests Site: Urine Culture NO GROWTH Report Status FINAL 01/28/2025 Normal [facility] Comment on above: Performed By: #### B MP #### [address] [address] [employer]: Alejandro Salazar MD Culture, Urineon 01-28-2025 Microorganism identified Cx Nom (Unsp spec) NO GROWTH [facility] Service comment (Unsp spec) [Interp] Site: Urine [facility] Specimen Description .BLADDER URINE FROM CYSTOSCOPY [facility] Basic Metabolic Profon 01-27 Anion gap [Moles/Vol] 9 mmol/L Normal 9-16 [facility] Comment on above: Performed By: #### B MP #### [address] [address] [employer]: Alejandro Salazar MD Calcium [Mass/Vol] 8.3 mg/dL Low 8.6-10.4 [facility] Comment on above: Performed By: #### B MP #### [facility] [employer] [address] [place] [address] [employer]: Alejandro Salazar MD Chloride [Moles/Vol] 108 mmol/L High 98-107 [facility] Comment on above: Performed By: #### B MP #### [facility] [address] [place] [address] [employer]: Alejandro Salazar MD CO2 [Moles/Vol] 22 mmol/L Normal 20-31 [facility] Comment on above: Performed By: #### B MP #### [facility] [address] [place] [address] [employer]: Alejandro Salazar MD Creatinine [Mass/Vol] 0.7 mg/dL Normal 0.6-0.9 [facility] Comment on above: Performed By: #### B MP #### [address] [address] [employer]: Alejandro Salazar MD GFR/1.73 sq M.predicted among non-blacks MDRD (S/P/Bld) [Vol rate/Area] mL/min/{1.73_m2} Normal >60 [facility] Comment on above: Result Comment: These [...] By: #### B MP #### [facility] [address] [place] [address] [employer]: Alejandro Salazar MD Glucose [Mass/Vol] 85 mg/dL Normal 74-99 [facility] Comment on above: Performed By: #### B MP #### [address] [address] [employer]: Alejandro Salazar MD Potassium [Moles/Vol] 3.9 mmol/L Normal 3.7-5.3 [facility] Comment on above: Performed By: #### B MP #### [facility] [address] [place] [address] [employer]: Alejandro Salazar MD Sodium [Moles/Vol] 139 mmol/L Normal 136-145 [facility] Comment on above: Performed By: #### B MP #### [facility] [address] [place] [address] [employer]: Alejandro Salazar MD Urea nitrogen [Mass/Vol] 11 mg/dL Normal 6-20 [facility] Comment on above: Performed By: #### B #### [facility] [address] [place] [address] [employer]: Alejandro Salazar MD Basic metabolic panelon 01-17 Anion gap [Moles/Vol] 9 mmol/L 9 - 16 mmol/L [facility] Calcium [Mass/Vol] 8.3 mg/dL Low 8.6 - 10. 4 mg/dL [facility] Chloride [Moles/Vol] 108 mmol/L High 98 - 10 7 mmol/L [facility] CO2 [Moles/Vol] 22 mmol/L 20 - 31 mmol/L [facility] Creatinine [Mass/Vol] 0.7 mg/dL 0.6 - 0.9 mg/dL [facility] [employer], Glohayley Lundt Rate - PINF [facility] Comment on above: These results are [...] mg/dL 74 - 99 mg/dL [facility] Interpretation and review of laboratory results Abnormal [facility] Potassium [Moles/Vol] 3.9 mmol/L 3.7 - 5.3 mmol/L [facility] Sodium [Moles/Vol] 139 mmol/L 136 - 145 mmol/L [facility] Urea nitrogen [Mass/Vol] 11 mg/dL 6 - 20 mg/dL [facility] CBC auto differentialon 01-17 Basophils (Bld) [#/Vol] 0.04 10*3/uL [facility] Basophils/100 WBC (Bld) 1 % 0 - 2 % [facility] Eosinophils (Bld) [#/Vol] 0.14 10*3/uL [facility] Eosinophils/100 WBC (Bld) 4 % 1 - 4 % [facility] Erythrocyte distribution width (RBC) [Ratio] 12.6 % 11.8 - 14.4 % [facility] Hematocrit (Bld) [Volume fraction] 34.2 % Low 36.3 - 47.1 % [facility] Hemoglobin (Bld) [Mass/Vol] 10.7 g/dL Low 11.9 - 15.1 g/dL [facility] Immature granulocytes (Bld) [#/Vol] [facility] Immature granulocytes/100 WBC (Bld) 0 % 0 [facility] Interpretation and review of laboratory results Abnormal [facility] Lymphocytes/100 WBC (Bld) 55 % High 24 - 43 % [facility] Lymphocytes/100 WBC (Bld) 2.11 % [facility] MCH (RBC) [Entitic mass] 27.1 pg 25.2 - 33.5 pg [facility] MCHC (RBC) [Mass/Vol] 31.3 g/dL 28.4 - 34.8 g/dL [facility] MCV (RBC) [Entitic vol] 86.6 fL 82.6 - 102.9 fL [facility] Monocytes/100 WBC (Bld) 9 % 3 - 12 % [facility] Monocytes/100 WBC (Bld) 0.35 % [facility] Neutrophils/100 WBC (Bld) 31 % Low 36 - 65 % [facility] Nucleated RBC/100 WBC (Bld) [Ratio] 0 % 0.0 per 100 WBC [facility] Platelet mean volume (Bld) [Entitic vol] 9.1 fL 8.1 - 13.5 fL [facility] Platelets (Bld) [#/Vol] 238 10*3/uL [facility] RBC (Bld) [#/Vol] 3.95 10*6/uL 3.95 - 5.1 1 m/uL [facility] Segmented neutrophils/100 WBC (Bld) 1.21 % Low [facility] WBC other (Bld) [#/Vol] 3.9 [facility] CBC with Diffon 01-27-2025 Abs. Basophil 0.04 k/uL Normal 0.00-0.20 [facility] Comment on above: Performed By: #### B MP #### [address] [address] [employer]: Alejandro Salazar MD Abs.Imm.Granulocyte <0.03 Normal 0.00-0.30 [facility] Comment on above: Performed By: #### B MP #### [place] [address] [employer]: Alejandro Salazar MD Abs.Neutrophil (Seg) 1.21 k/uL Low 1.50-8.10 [facility] Comment on above: Performed By: #### B MP #### [place] [address] [employer]: Alejandro Salazar MD Basophils/100 WBC (Bld) 1 % Normal 0-2 [facility] Comment on above: Performed By: #### B MP #### [place] [address] [employer]: Alejandro Salazar MD Eosinophils (Bld) [#/Vol] 0.14 10*3/uL Normal 0.00-0.44 [facility] Comment on above: Performed By: #### B MP #### [address] [address] [employer]: Alejandro Salazar MD Eosinophils/100 WBC (Bld) 4 % Normal 1-4 [facility] Comment on above: Performed By: #### B MP #### [address] [address] [employer]: Alejandro Salazar MD Erythrocyte distribution width (RBC) [Ratio] 12.6 % Normal 11.8-14.4 [facility] Comment on above: Performed By: #### B MP #### [address] [address] [employer]: Alejandro Salazar MD Hematocrit (Bld) [Volume fraction] 34.2 % Low 36.3-47.1 [facility] Comment on above: Performed By: #### B MP #### [address] [address] [employer]: Alejandro Salazar MD Hemoglobin (Bld) [Mass/Vol] 10.7 g/dL Low 11.9-15.1 [facility] Comment on above: Performed By: #### B MP #### [address] [address] [employer]: Alejandro Salazar MD Immature granulocytes/100 WBC (Bld) 0 % Normal 0 [facility] Comment on above: Performed By: #### B MP #### [address] [address] [employer]: Alejandro Salazar MD Lymphocytes (Bld) [#/Vol] 2.11 10*3/uL Normal 1.10-3.70 [facility] Comment on above: Performed By: #### B MP #### [address] [address] [employer]: Alejandro Salazar MD Lymphocytes/100 WBC (Bld) 55 % High 24-43 [facility] Comment on above: Performed By: #### B MP #### [address] [address] [employer]: Alejandro Salazar MD MCH (RBC) [Entitic mass] 27.1 pg Normal 25.2-33.5 [facility] Comment on above: Performed By: #### B MP #### [address] [address] [employer]: Alejandro Salazar MD MCHC (RBC) [Mass/Vol] 31.3 g/dL Normal 28.4-34.8 [facility] Comment on above: Performed By: #### B MP #### [address] [address] [employer]: Alejandro Salazar MD MCV (RBC) [Entitic vol] 86.6 fL Normal 82.6-102.9 [facility] Comment on above: Performed By: #### B MP #### [address] [address] [employer]: Alejandro Salazar MD Monocytes (Bld) [#/Vol] 0.35 10*3/uL Normal 0.10-1.20 [facility] Comment on above: Performed By: #### B MP #### [address] [address] [employer]: Alejandro Salazar MD Monocytes/100 WBC (Bld) 9 % Normal 3-12 [facility] Comment on above: Performed By: #### B MP #### [address] [address] [employer]: Alejandro Salazar MD Neutrophil (Seg) 31 % Low 36-65 [facility] Comment on above: Performed By: #### B MP #### [address] [address] [employer]: Alejandro Salazar MD NRBC Automated 0.0 per 100 WBC Normal 0.0 [facility] Comment on above: Performed By: #### B MP #### [address] [address] [employer]: Alejandro Salazar MD Platelet mean volume (Bld) [Entitic vol] 9.1 fL Normal 8.1-13.5 [facility] Comment on above: Performed By: #### B MP #### [facility] [place] [address] [employer]: Alejandro Salazar MD Platelets (Bld) [#/Vol] 238 10*3/uL Normal 138-453 [facility] Comment on above: Performed By: #### B MP #### [facility] [address] [place] [address] [employer]: Alejandro Salazar MD RBC (Bld) [#/Vol] 3.95 10*6/uL Normal 3.95-5.11 [facility] Comment on above: Performed By: #### B MP #### [facility] [address] [place] [address] [employer]: Alejandro Salazar MD WBC (Bld) [#/Vol] 3.9 10*3/uL Normal 3.5-11.3 [facility] Comment on above: Performed By: #### B MP #### [facility] [address] [place] [address] [employer]: Alejandro Salazar MD Consent Formson 01-27-2025 Consent Forms [id number]. [id number] [facility] Cult,Urineon 01-27-2025 Cult,Urine Specimen Description .URINE Culture NO SIGNIFICANT GROWTH Report Status FINAL 01/27/2025 Normal [facility] Comment on above: Performed By: #### B MP #### [facility] [address] [place] [address] [employer]: Alejandro Salazar MD Culture, Urineon 01-27-2025 Microorganism identified Cx Nom (Unsp spec) NO SIGNIFICANT GROWTH [facility] .URINE [facility] FLUORO FOR SURGICAL PROCEDUR ESon 01-27-2025 FLUORO FOR SURGICAL PROCEDURES Radiology exam is complete. No Radiologist dictation. Please follow up with ordering provider. Final result Normal [facility] Guidance-- during surgeryon 01-27-2025 Radiology exam is complete. No Radiologist dictation. Please follow up with ordering provider. MHPN RIS CONSOLIDATED .Auto Diff 1on 01-26-2025 Auto [place] % 10 % Normal 1-12 [facility] Comment on above: Performed By: #### 7 289113, [id number], [id number], [id number], [id number] #### [facility] (DEFAULT) [address] [place] [address] Baso Abs# 0.0 x10 Normal 0.0-0.2 [facility] Comment on above: Performed By: #### 7 140104, [id number], [id number], 31142651, [id number] #### [facility] (DEFAULT) [address] [place] [address] Basophils/100 WBC (Bld) 0.7 % Normal 0.2-2.0 [facility] Comment on above: Performed By: #### 7 207383, [id number], [id number], 97840355, 034855298 #### [facility] (DEFAULT) [address] [place] [address] Eos Abs# 0.1 x10 Normal 0.0-0.4 [facility] Comment on above: Performed By: #### 7 436392, [id number], [id number], 65724496, 602036004 #### [facility] (DEFAULT) [address] [place] [address] Eosinophils/100 WBC (Bld) 2.4 % Normal 0.9-4.0 [facility] Comment on above: Performed By: #### 7 982279, [id number], [id number], 30034290, 600798240 #### [facility] (DEFAULT) [address] [place] [address] Lymph Abs# 1.8 x10 Normal 1.3-2.9 [facility] Comment on above: Performed By: #### 7 975773, [id number], 9606651987, [id number], [id number] #### [facility] (DEFAULT) [address] [place] [address] Lymphocytes/100 WBC (Bld) 38 % Normal 14-48 [facility] Comment on above: Performed By: #### 7 398287, [id number], 7040896483, 76167454, 182622055 #### [facility] (DEFAULT) [address] [place] [address] [place] Abs# 0.5 x10 Normal 0.0-0.8 [facility] Comment on above: Performed By: #### 7 372494, [id number], 5725882367, 64708731, 331574780 #### [facility] (DEFAULT) [address] [place] [address] Neut Abs# 2.4 x10 Normal 1.5-9.2 [facility] Comment on above: Performed By: #### 7 026342, [id number], 7874534357, 38886816, 329686951 #### [facility] (DEFAULT) [address] [place] [address] Neutrophils/100 WBC (Bld) 49 % Normal 44-88 [facility] Comment on above: Performed By: #### 7 079335, [id number], 0119060046, 09244025, [id number] #### [facility] (DEFAULT) [address] [place] [address] Basic Metabolic Panelon 04-1 0 Anion gap [Moles/Vol] 12 mmol/L 9 - 16 mmol/L [facility] Calcium [Mass/Vol] 8.6 mg/dL 8.6 - 10. 4 mg/dL [facility] Chloride [Moles/Vol] 106 mmol/L 98 - 10 7 mmol/L [facility] CO2 [Moles/Vol] 21 mmol/L 20 - 31 mmol/L [facility] Creatinine [Mass/Vol] 0.9 mg/dL 0.6 - 0.9 mg/dL [facility] Est, Glom Filt Rate 87 - PINF [facility] Comment on above: These results are [...] High 74 - 99 mg/dL [facility] Interpretation and review of laboratory results Abnormal [facility] Potassium [Moles/Vol] 3.7 mmol/L 3.7 - 5.3 mmol/L [facility] Sodium [Moles/Vol] 139 mmol/L 136 - 145 mmol/L [facility] Urea nitrogen [Mass/Vol] 12 mg/dL 6 - 20 mg/dL [facility] Basic Metabolic Profon 01-26 Anion gap [Moles/Vol] 12 mmol/L Normal 9-16 [facility] Comment on above: Performed By: #### B MP #### [facility] [address] [place] [address] [employer]: Alejandro Salazar MD Calcium [Mass/Vol] 8.6 mg/dL Normal 8.6-10.4 [facility] Comment on above: Performed By: #### B MP #### [facility] [address] [place] [address] [employer]: Alejandro Salazar MD Chloride [Moles/Vol] 106 mmol/L Normal 98-107 [facility] Comment on above: Performed By: #### B MP #### [facility] [address] [place] [address] [employer]: Alejandro Salazar MD CO2 [Moles/Vol] 21 mmol/L Normal 20-31 [facility] Comment on above: Performed By: #### B MP #### [facility] [address] [place] [id number] [employer]er: Alejandro Salazar MD Creatinine [Mass/Vol] 0.9 mg/dL Normal 0.6-0.9 [facility] Comment on above: Performed By: #### B MP #### [facility] [address] [place] [address] [employer]: Alejandro Saalzar MD GFR/1.73 sq M.predicted among non-blacks MDRD (S/P/Bld) [Vol rate/Area] 87 mL/min/{1.73_m2} Normal >60 [facility] Comment on above: Result Comment: These [...] By: #### B MP #### [facility] [address] [place] [address] [employer]: Alejandro Salazar MD Glucose [Mass/Vol] 126 mg/dL High 74-99 [facility] Comment on above: Performed By: #### B MP #### [address] [address] [employer]: Alejandro Salazar MD Potassium [Moles/Vol] 3.7 mmol/L Normal 3.7-5.3 [facility] Comment on above: Performed By: #### B MP #### [facility] [address] [place] [address] [employer]: Alejandro Salazar MD Sodium [Moles/Vol] 139 mmol/L Normal 136-145 [facility] Comment on above: Performed By: #### B MP #### [address] [address] [employer]: Alejandro Salazar MD Urea nitrogen [Mass/Vol] 12 mg/dL Normal 6-20 [facility] Comment on above: Performed By: #### B MP #### [employer] [address] [place] [address] [employer]er: Alejandro Salazar MD [facility] 01-26-2025 Erythrocyte distribution width (RBC) [Ratio] 12.7 % 11.8 - 14.4 % [facility] Hematocrit (Bld) [Volume fraction] 38.1 % 36.3 - 47.1 % [facility] Hemoglobin (Bld) [Mass/Vol] 12 g/dL 11.9 - 15.1 g/dL [facility] MCH (RBC) [Entitic mass] 27.9 pg 25.2 - 33.5 pg [facility] MCHC (RBC) [Mass/Vol] 31.5 g/dL 28.4 - 34.8 g/dL [facility] MCV (RBC) [Entitic vol] 88.6 fL 82.6 - 102.9 fL [facility] Nucleated RBC/100 WBC (Bld) [Ratio] 0 % 0.0 per 100 WBC [facility] Platelet mean volume (Bld) [Entitic vol] 9 fL 8.1 - 13.5 fL [facility] Platelets (Bld) [#/Vol] 261 10*3/uL [facility] RBC (Bld) [#/Vol] 4.3 10*6/uL 3.95 - 5.1 1 m/uL [facility] WBC other (Bld) [#/Vol] 5.9 [facility] Erythrocyte distribution width (RBC) [Ratio] 12.7 % Normal 11.8-14.4 [facility] Comment on above: Performed By: #### B MP #### [employer] [address] [place] [address] [employer]er: Alejandro Salazar MD Hematocrit (Bld) [Volume fraction] 38.1 % Normal 36.3-47.1 [facility] Comment on above: Performed By: #### B MP #### [employer] [address] [place] [address] [employer]er: Alejandro Salazar MD Hemoglobin (Bld) [Mass/Vol] 12.0 g/dL Normal 11.9-15.1 [facility] Comment on above: Performed By: #### B MP #### [address] [address] [employer]er: Alejandro Salazar MD MCH (RBC) [Entitic mass] 27.9 pg Normal 25.2-33.5 [facility] Comment on above: Performed By: #### B MP #### [address] [address] [employer] Cann[employer]er: Aleajndro Salazar MD MCHC (RBC) [Mass/Vol] 31.5 g/dL Normal 28.4-34.8 [facility] Comment on above: Performed By: #### B MP #### [address] [address] [employer]er: Alejandro Salazar MD MCV (RBC) [Entitic vol] 88.6 fL Normal 82.6-102.9 [facility] Comment on above: Performed By: #### B MP #### [address] [address] [employer]er: Alejandro Salazar MD NRBC Automated 0.0 per 100 WBC Normal 0.0 [facility] Comment on above: Performed By: #### B MP #### [address] [address] [employer]er: Alejandro Salazar MD Platelet mean volume (Bld) [Entitic vol] 9.0 fL Normal 8.1-13.5 [facility] Comment on above: Performed By: #### B MP #### [address] [address] [employer]er: Alejandro Salazar MD Platelets (Bld) [#/Vol] 261 10*3/uL Normal 138-453 [facility] Comment on above: Performed By: #### B MP #### [address] [address] [employer]er: Alejandro Salazar MD RBC (Bld) [#/Vol] 4.30 10*6/uL Normal 3.95-5.11 [facility] Comment on above: Performed By: #### B MP #### [address] [address] [employer]er: Alejandro Salazar MD WBC (Bld) [#/Vol] 5.9 10*3/uL Normal 3.5-11.3 [facility] Comment on above: Performed By: #### B MP #### [address] [address] [employer] Cannoneer: Alejandro Salazar MD CBC w/ Auto Diffon Erythrocyte distribution width (RBC) [Ratio] 13.6 % Normal 11.5-15.0 [facility] Comment on above: Performed By: #### 7 483797, [id number], 4846925547, 06677941, 818666852 #### [facility] (DEFAULT) [address] [place] [address] Hematocrit (Bld) [Volume fraction] 37.0 % Normal 33.7-40.4 [facility] Comment on above: Performed By: #### 7 178258, [id number], 5214859790, 01240642, 271308654 #### [facility] (DEFAULT) [address] [place] [address] Hemoglobin (Bld) [Mass/Vol] 12.7 g/dL Normal 11.3-15.9 [facility] Comment on above: Performed By: #### 7 357123, [id number], 9722764865, 71133090, [id number] #### [facility] (DEFAULT) [address] [place] [address] Man Diff? Auto Invalid Interpretation Code [facility] Comment on above: Performed By: #### 7 380617, [id number], 8935354224, 44463628, 619013972 #### [facility] (DEFAULT) [address] [place] [address] MCH (RBC) [Entitic mass] 29 pg Normal 24-34 [facility] Comment on above: Performed By: #### 7 380949, [id number], 8760423214, 71991215, 678755286 #### [facility] (DEFAULT) [address] [place] [address] MCHC (RBC) [Mass/Vol] 34 g/dL Normal 26-37 [facility] Comment on above: Performed By: #### 7 666208, [id number], 3220304166, 73427389, 718199920 #### [facility] (DEFAULT) [address] [place] [address] MCV (RBC) [Entitic vol] 84 fL Normal 81-100 [facility] Comment on above: Performed By: #### 7 439931, [id number], 6382021153, 01136206, 434556164 #### [facility] (DEFAULT) [address] [place] [address] Platelet 287 x10 Normal 138-427 [facility] Comment on above: Performed By: #### 7 324904, [id number], 0414503982, 57964391, 587000916 #### [facility] (DEFAULT) [address] [place] [address] Platelet mean volume (Bld) [Entitic vol] 7.3 fL Normal 6.3-10.2 [facility] Comment on above: Performed By: #### 7 927288, [id number], 8427878441, 20293255, 825528442 #### [facility] (DEFAULT) [address] [place] [address] RBC 4.39 x10 Normal 3.70-5.30 [facility] Comment on above: Performed By: #### 7 773039, [id number], 6920632337, 03724771, 471963053 #### [facility] (DEFAULT) [address] [place] [address] WBC 4.8 x10 Normal 3.5-10.5 [facility] Comment on above: Performed By: #### 7 073248, 8468954537, 5998928445, 70035948, 335323617 #### [facility] (DEFAULT) [address] [place] [address] CMP Standardon 01-26-2025 eGFR Non AA >60 Invalid Interpretation Code [facility] Comment on above: Performed By: #### 7 883291, 1417860395, 1213491250, 77684299, 946910039 #### [facility] (DEFAULT) [address] [place] [address] eGFR AA >60 Invalid Interpretation Code [facility] Comment on above: Performed By: #### 7 147152, [id number], 8185587849, 33248144, 752233217 #### [facility] (DEFAULT) [address] [place] [address] Albumin [Mass/Vol] 3.7 g/dL Normal 3.5-5.0 [facility] Comment on above: Performed By: #### 7 903031, 0551279035, 2227593940, 02314109, 784141613 #### [facility] (DEFAULT) [address] [place] [address] Albumin/Globulin [Mass ratio] 1.0 {ratio} Low 1.4-2.6 [facility] Comment on above: Performed By: #### 7 473131, 9777940253, 6349936238, 29520834, 377446059 #### [facility] (DEFAULT) [address] [place] [address] Alk Phos 70 IU/L Normal 32-91 [facility] Comment on above: Performed By: #### 7 816052, 1954277624, 9302239036, 78264191, 961633093 #### [facility] (DEFAULT) [address] [place] [address] ALT [Catalytic activity/Vol] 75.0 U/L High 14.0-54.0 [facility] Comment on above: Performed By: #### 7 083709, 3434922791, 7522260668, 31282965, 170866181 #### [facility] (DEFAULT) [address] [place] [address] AST [Catalytic activity/Vol] 27 U/L Normal 15-41 [facility] Comment on above: Performed By: #### 7 671464, 0360879852, 2143650677, 91532267, 936424727 #### [facility] (DEFAULT) [address] [place] [address] Bili Total 0.7 mg/dL Normal 0.3-1.2 [facility] Comment on above: Performed By: #### 7 369853, 1316657468, 2019385788, 15409191, 778189875 #### [facility] (DEFAULT) [address] [place] [address] Creatinine [Mass/Vol] 0.94 mg/dL Normal 0.60-1.30 [facility] Comment on above: Performed By: #### 7 864803, 4401603915, 5182160692, 05836450, 826759785 #### [facility] (DEFAULT) [address] [place] [address] Globulin (S) [Mass/Vol] 3.5 g/dL Normal 1.5-4.3 [facility] Comment on above: Performed By: #### 7 865272, 8860714687, 2614710132, 07073392, 850019218 #### [facility] (DEFAULT) [address] [place] [address] Osmolality 277 mOsm/L Invalid Interpretation Code [facility] Comment on above: Performed By: #### 7 270378, 2998254525, 4231594185, 76568564, 804079027 #### [facility] (DEFAULT) [address] [place] [address] Protein [Mass/Vol] 7.2 g/dL Normal 6.5-8.1 [facility] Comment on above: Performed By: #### 7 846624, 4897273372, 0740005214, 73690409, 515308375 #### [facility] (DEFAULT) [address] [place] [address] Urea nitrogen [Mass/Vol] 13 mg/dL Normal 8-26 [facility] Comment on above: Performed By: #### 7 950453, 6531374424, 8283460290, 08764521, 766278488 #### [facility] (DEFAULT) [address] [place] [address] Urea nitrogen/Creatinine [Mass ratio] 13.8 mg/mg Normal 4.6-16.2 [facility] Comment on above: Performed By: #### 7 586223, 4894760403, 7768153114, 32151300, 080730726 #### [facility] (DEFAULT) [address] [place] [address] Anion gap [Moles/Vol] 13.6 mmol/L Normal 5.0-19.0 [facility] Comment on above: Performed By: #### 7 250447, 9650922185, 2300132552, 33472301, 807222723 #### [facility] (DEFAULT) [address] [place] [address] Calcium [Mass/Vol] 9.4 mg/dL Normal 8.9-10.3 [facility] Comment on above: Performed By: #### 7 333137, 3272664468, 2145083855, 64844627, 378157854 #### [facility] (DEFAULT) [address] [place] [address] Chloride [Moles/Vol] 104 mmol/L Normal 101-111 [facility] Comment on above: Performed By: #### 7 928668, 3880943218, 7203286400, 22773402, 697114286 #### [facility] (DEFAULT) [address] [place] [address] CO2 [Moles/Vol] 25 mmol/L Normal 21-32 [facility] Comment on above: Performed By: #### 7 440382, 1923767309, 6760941921, 81782178, 295264301 #### [facility] (DEFAULT) [address] [place] [address] Glucose [Mass/Vol] 93.0 mg/dL Normal 74.0-118.0 [facility] Comment on above: Performed By: #### 7 646860, [id number], 5187981845, 61859353, 057361017 #### [facility] (DEFAULT) [address] [place] [address] Potassium [Moles/Vol] 3.6 mmol/L Normal 3.6-5.1 [facility] Comment on above: Performed By: #### 7 725243, 7441895072, 2367283168, 56284675, 250017115 #### [facility] (DEFAULT) [address] [place] [address] Sodium [Moles/Vol] 139.0 mmol/L Normal 136.0-144.0 [facility] Comment on above: Performed By: #### 7 343198, 0902089273, 1228150869, 94356247, 260358601 #### [facility] (DEFAULT) [address] [place] [address] Abdomen/Pelvis w/o Contra ston 01-26-2025 CT [...] MD 01/26/25 2:00 pm Technologist: Boogie COLE [facility] ED Note-Nursingon 01-26-2025 ED Note-Nursing Pt stated she was seen in [facility] recently and Dr. Plata is requesting records. Outboard Motorboat Rigger called [facility] to get records faxed. Stated they would be faxing results over. [facility] Extra Blueon 01-26-2025 Tube Collected Yes Invalid Interpretation Code [facility] Comment on above: Performed By: #### 7 818412, [id number], [id number], 23616665, 565134610 #### [facility] (DEFAULT) [address] [place] [address] Microscopic Urinalysison Bacteria LM Ql (Urine sed) None None [facility] Casts LM.LPF (Urine sed) [#/Area] 2 TO 5 HYALINE Reference range defined for non-centrifuged specimen. [facility] Epithelial cells LM.HPF (Urine sed) [#/Area] 2 TO 5 [facility] RBC LM.HPF (Urine sed) [#/Area] TOO NUMEROUS TO COUNT [facility] Comment on above: Reference range defi salty for non-centrifuged specimen. WBC LM.HPF (Urine sed) [#/Area] 20 TO 50 [facility] Test Serum 1on Preg Serum Internal Control [place] [facility] Comment on above: Performed By: #### 7 650599, [id number], 5723427338, 60770192, 129893046 #### [facility] [facility] ([facility] [address] [place] [address] Test Serum Qual Negative [facility] Comment on above: Performed By: #### 7 [id number], [id number], [id number], [id number], [id number] #### [facility] (DEFAULT) [address] [place] [address] Stone Analysison 01-26-2025 Calculi description See Note [facility] Comment on above: Result Comment: (NOT E) Specimen consists of one rondon sample. The total weight is less than 2 mg. Performed By: #### A STONE #### [employer] [address] [place] [address] [id number] [employer] Art[employer] Cannoneer: Mane Tolbert MD Composition See Note [facility] Comment on above: Result Comment: (NOT [...] composition determined by FTIR analysis. Performed By: [employer] [address] [place] [address] Interventional Radiology Tech: Jorge Melendrez MD, PhD CLIA Number: [id number] Performed By: #### A STONE #### [employer] [address] [place] [address] [employer] Art[employer] Cannoneer: Mane Tolbert MD Mass See Note [facility] Comment on above: Result Comment: (NOT E) Sample mass < 2 mg. Small sample size prevents accurate weight determination. Performed By: #### A STONE #### [address] [address] Field Art[employer] Cannoneer: Mane Tolbert MD Transfer Noteon 01-26-2025 Transfer Note Patient requires transfer to [facility] for a diagnosis of hydronephrosis. 1527- Kylie from [employer], Tamiko Mercedes NP paged, hospitalist speaks to Dr. Plata, accepts, top gun is open. 1539- Called [facility], systems engineer Austin gave 20 minute ETA. 1547- [facility] arrives 1550- [employer] calls, bed assignment given, room 321 bed 2, report number [id number] 1610- [facility] departs [Electronically Signed on: 01/26/2025 16:28 EDT] Beth Rodriugez RN [Verified on: 01/26/2025 16:28 EDT] Beth Rodriguez RN 1630- Dr. Plata signs physician note, this note was faxed to [facility] at fax number [phone]. [Electronically Signed on: 01/26/2025 16:31 EDT] Beth Rodriguez RN Normal [facility] UA Wynha2kw 01-26-2025 UA Bacteria Trace Normal [facility] Comment on above: Order Comment: Urina lysis Microscopic order added on by [employer] Rules system. Performed By: #### 7 [id number], [id number], [id number], [id number], [id number] #### [facility] (DEFAULT) [address] [place] [address] UA Comment. See Comment Invalid Interpretation Code [facility] Comment on above: Order Comment: Urina lysis Microscopic order added on by Discern Expert Rules system. Result Comment: 4+ S ulfa Crystals present Performed By: #### 7 [id number], [id number], [id number], [id number], [id number] #### [facility] (DEFAULT) [address] [place] [address] UA RBC Gross Blood [facility] Comment on above: Order Comment: Urina lysis Microscopic order added on by [employer] Expert Rules system. Performed By: #### 7 197962, [id number], [id number], [id number], [id number] #### [facility] (DEFAULT) [address] [place] [address] UA Squam Epi Moderate Normal [facility] Comment on above: Order Comment: Urina lysis Microscopic order added on by [employer] Rules system. Performed By: #### 7 290759, [id number], [id number], [id number], [id number] #### [facility] (DEFAULT) [address] [place] [address] UA WBC 3-5 Normal [facility] Comment on above: Order Comment: Urina lysis Microscopic order added on by [employer] Rules system. Performed By: #### 7 527054, [id number], [id number], [id number], [id number] #### [facility] (DEFAULT) [address] [place] [address] UA w Culture if Ind Standard on 01-26-2025 Breakpoint UA [facility] Comment on above: Performed By: #### 7 145612, [id number], [id number], [id number], [id number] #### [facility] (DEFAULT) [address] [place] [address] Color (U) Red Normal [facility] Comment on above: Result Comment: Test cannot be satisfactorily determined due to intensely colored urine. Parameters which will be affected are: GLU, BRAIN, URO, KET, BLO, PRO, NIT, LISSA, SG, AND pH. Performed By: #### 7 344152, [id number], [id number], [id number], [id number] #### [facility] (DEFAULT) [address] [place] [address] Culture? Yes Normal [facility] Comment on above: Result Comment: Resu lt created by rule GL_MAGR_ADD_UA_CULT Result created by rule GL_MAGR_ADD_UA_CULT1 Performed By: #### 7 709202, [id number], [id number], [id number], [id number] #### [facility] (DEFAULT) [address] [place] [address] Glucose (U) [Mass/Vol] Negative Normal [facility] Comment on above: Performed By: #### 7 237187, [id number], [id number], [id number], [id number] #### [facility] (DEFAULT) [address] [place] [address] Ketones Ql (U) Negative Normal [facility] Comment on above: Performed By: #### 7 948155, [id number], [id number], [id number], [id number] #### [facility] (DEFAULT) [address] [place] [address] Micro? Indicated Invalid Interpretation Code [facility] Comment on above: Result Comment: Resu lt created by rule GL_MAGR_ADD_UA_MICRO Performed By: #### 7 109542, [id number], [id number], [id number], [id number] #### [facility] (DEFAULT) [address] [place] [address] UA Bilirubin SMALL Abnormal [facility] Comment on above: Performed By: #### 7 377744, [id number], [id number], [id number], [id number] #### [facility] (DEFAULT) [address] [place] [address] UA Blood LARGE Abnormal NEGATIVE [facility] Comment on above: Performed By: #### 7 169432, [id number], [id number], [id number], [id number] #### [facility] (DEFAULT) [address] [place] [address] UA Clarity CLOUDY Abnormal CLEAR [facility] Comment on above: Performed By: #### 7 610948, [id number], [id number], [id number], [id number] #### [facility] (DEFAULT) [address] [place] [address] UA Leuk Est MODERATE Abnormal NEGATIVE [facility] Comment on above: Performed By: #### 7 489221, [id number], [id number], [id number], [id number] #### [facility] (DEFAULT) [address] [place] [address] UA Nitrite Negative Normal NEGATIVE [facility] Comment on above: Performed By: #### 7 582704, [id number], [id number], [id number], [id number] #### [facility] (DEFAULT) [address] [place] [address] UA pH 7.0 Normal 5-8 [facility] Comment on above: Performed By: #### 7 803481, [id number], [id number], [id number], [id number] #### [facility] (DEFAULT) [address] [place] [address] UA Protein 100 Abnormal NEGATIVE [facility] Comment on above: Performed By: #### 7 189418, [id number], [id number], [id number], [id number] #### [facility] (DEFAULT) [address] [place] [address] UA Spec Grav 1.020 Normal 1.001-1.035 [facility] Comment on above: Performed By: #### 7 461476, [id number], [id number], [id number], [id number] #### [facility] (DEFAULT) [address] [place] [address] UA Urobilinogen 0.2 mg/dL Normal 0.2-1.0 [facility] Comment on above: Performed By: #### 7 184044, [id number], [id number], [id number], [id number] #### [facility] (DEFAULT) [address] [place] [address] Urine Source Clean Catch Normal [facility] Comment on above: Performed By: #### 7 807430, [id number], [id number], [id number], [id number] #### [facility] (DEFAULT) [address] [place] [address] UA w/Reflex Cultureon 2024 Bilirubin, SemiQt,Ur Negative Normal NEG [facility] Comment on above: Performed By: #### U AX, UMICAO #### [facility] [address] [place] [address] Field Artillery Cannoneer: Alejandro Salazar MD Blood, Urine LARGE Abnormal NEG [facility] Comment on above: Performed By: #### U AX, UMICAO #### [facility] [address] [place] [address] Field Art[employer] Cannoneer: Alejandro Salazar MD Clarity (U) Cloudy Abnormal CLEAR [facility] Comment on above: Performed By: #### U AX, UMICAO #### [facility] [address] [place] [address] Field Art[employer] Cannoneer: Alejandro Salazar MD Color (U) Hayden Abnormal YEL [facility] Comment on above: Result Comment: INTE RPRET WITH CAUTION DUE TO INTENSE COLOR OF URINE. Performed By: #### U AX, UMICAO #### [facility] [address] [place] [address] [employer] Cannoneer: Alejandro Salazar MD Glucose Ql (U) Negative Normal NEG [facility] Comment on above: Performed By: #### U AX, UMICAO #### [facility] [address] [place] [address] Field Art[employer] Cannoneer: Alejandro Salazar MD Ketones Ql (U) Negative Normal NEG [facility] Comment on above: Performed By: #### U AX, UMICAO #### [facility] [address] [place] [address] [employer] Art[employer] Cannoneer: Alejandro Salazar MD Leukocyte esterase Test strip Ql (U) MODERATE Abnormal NEG [facility] Comment on above: Performed By: #### U AX, UMICAO #### [employer] [facility] [place] [address] Field Artillery Cannoneer: Alejandro Salazar MD Nitrite,Ur Negative Normal NEG [facility] Comment on above: Performed By: #### U AX, UMICAO #### [facility] [address] [place] [address] Field Art[employer] Cannoneer: Alejandro Salazar MD PH,Ur 6.5 Normal 5.0-8.0 [facility] Comment on above: Performed By: #### U AX, UMICAO #### [facility] [address] [place] [address] Field Art[employer] Cannoneer: Alejandro Salazar MD Protein Ql (U) 2+ mg/dL Abnormal NEG [facility] Comment on above: Performed By: #### U AX UMICAO #### [facility] [address] [place] [address] [employer] Art[employer] Cannoneer: Alejandro Salazar MD Spec. Brillion,Ur 1.016 Normal 1.005-1.030 [facility] Comment on above: Performed By: #### U AX UMICAO #### [facility] [address] [place] [address] Field Art[employer] Cannoneer: Alejandro Salazar MD Urobilinogen,Ur Normal Normal 0.0-1.0 [facility] Comment on above: Performed By: #### U AX, UMICAO #### [facility] [address] [place] [address] [employer] Art[employer] Cannoneer: Alejandro Salazar MD Urinalysis with Reflex to Cu ltureon 01-26-2025 Bilirubin Ql (U) Negative NEGATIVE [facility] Clarity (U) Cloudy Abnormal Clear [facility] Color (U) Hayden Abnormal Yellow [facility] Comment on above: INTERPRET WITH CAUTI ON DUE TO INTENSE COLOR OF URINE. Glucose Test strip (U) [Mass/Vol] Negative NEGATIVE mg/dL [facility] Hemoglobin Auto test strip Ql (U) LARGE Abnormal NEGATIVE [facility] Interpretation and review of laboratory results Abnormal [facility] Ketones (U) [Mass/Vol] Negative NEGATIVE mg/dL [facility] Leukocyte esterase Test strip Ql (U) MODERATE Abnormal NEGATIVE [facility] Nitrite Ql (U) Negative NEGATIVE [facility] pH (U) 6.5 [pH] 5.0 - 8.0 [facility] Protein (U) [Mass/Vol] 2+ Abnormal NEGATIVE mg/dL [facility] Specific gravity (U) [Rel density] 1.016 1.005 - 1.030 [facility] Urobilinogen Qn (U) Normal 0.0 - 1. 0 EU/dL [facility] Urinalysis,Microon 5 Bacteria None Normal NONE [facility] Comment on above: Performed By: #### U AX, UMICAO #### [facility] [address] [place] [address] [employer] Cannoneer: Alejandro Salazar MD Casts 2 TO 5 HYALINE Normal 0-8 [facility] Comment on above: Result Comment: Refe rence range defined for non-centrifuged specimen. Performed By: #### U AX, UMICAO #### [employer] [address] [place] [address] [employer] Cannoneer: Alejandro Salazar MD Epithelial cells LM Ql (Urine sed) 2 TO 5 Normal 0-5 [facility] Comment on above: Performed By: #### U AX, UMICAO #### [employer] [address] [place] [address] [employer] Cannoneer: Alejandro Salazar MD Urine RBC's TOO NUMEROUS TO COUNT Normal 0-4 [facility] Comment on above: Result Comment: Refe rence range defined for non-centrifuged specimen. Performed By: #### U AX, UMICAO #### [employer] [address] [place] [address] [employer] Cannoneer: Alejandro Salazar MD Urine WBC's 20 TO 50 Normal 0-5 [facility] Comment on above: Performed By: #### U AX, UMFERCHOO #### [address] [address] [employer] Cannoneer: Alejandro Salazar MD Cult,Urineon 01-23-2025 Cult,Urine Specimen Description .BLADDER URINE FROM CYSTOSCOPY Special Requests Site: Urine Culture NO GROWTH Report Status FINAL 01/23/2025 Normal [facility] Comment on above: Performed By: #### U RC #### [address] [address] [employer] Art[employer] Cannoneer: Alejandro Salazar MD Basic Metabolic Profon 01-22 Anion gap [Moles/Vol] 12 mmol/L Normal 9-16 [facility] Comment on above: Performed By: #### B MP #### [address] [address] [employer] Art[employer] Cannoneer: Alejandro Salazar MD Calcium [Mass/Vol] 8.4 mg/dL Low 8.6-10.4 [facility] Comment on above: Performed By: #### B MP #### [address] [address] [employer] Cannoneer: Alejandro Salazar MD Chloride [Moles/Vol] 107 mmol/L Normal 98-107 [facility] Comment on above: Performed By: #### B MP #### [address] [address] [employer] Cannoneer: Alejandro Salazar MD CO2 [Moles/Vol] 21 mmol/L Normal 20-31 [facility] Comment on above: Performed By: #### B MP #### [address] [address] [employer] Art[employer] Cannoneer: Alejandro Salazar MD Creatinine [Mass/Vol] 0.7 mg/dL Normal 0.6-0.9 [facility] Comment on above: Performed By: #### B MP #### [facility] [address] [place] [address] [id number] [employer] Cannoneer: Alejandro Salazar MD GFR/1.73 sq M.predicted among non-blacks MDRD (S/P/Bld) [Vol rate/Area] mL/min/{1.73_m2} Normal >60 [facility] Comment on above: Result Comment: These [...] secretion. Performed By: #### B MP #### [employer] [address] [place] [address] [employer] Cannoneer: Alejandro Salazar MD Glucose [Mass/Vol] 94 mg/dL Normal 74-99 [facility] Comment on above: Performed By: #### B MP #### [facility] [address] [place] [address] [employer] Cannoneer: Alejandro Salazar MD Potassium [Moles/Vol] 4.2 mmol/L Normal 3.7-5.3 [facility] Comment on above: Result Comment: Spec imen hemolysis has exceeded the interference as defined by Denise. Value may be falsely increased. Suggest recollection if clinically indicated. Performed By: #### B MP #### [employer] [address] [place] [address] [employer] Cannoneer: Alejandro Salazar MD Sodium [Moles/Vol] 140 mmol/L Normal 136-145 [facility] Comment on above: Performed By: #### B MP #### [employer] [address] [place] [address] [phone] [employer] Cannoneer: Alejandro Salazar MD Urea nitrogen [Mass/Vol] 6 mg/dL Normal 6-20 [facility] Comment on above: Performed By: #### B #### [facility] [address] [place] [address] [employer] Art[employer] Cannoneer: Alejandro Salazar MD Basic metabolic panelon Anion gap [Moles/Vol] 12 mmol/L 9 - 16 mmol/L [facility] Calcium [Mass/Vol] 8.4 mg/dL Low 8.6 - 10. 4 mg/dL [facility] Chloride [Moles/Vol] 107 mmol/L 98 - 10 7 mmol/L [facility] CO2 [Moles/Vol] 21 mmol/L 20 - 31 mmol/L [facility] Creatinine [Mass/Vol] 0.7 mg/dL 0.6 - 0.9 mg/dL [facility] Est, Glohayley Lundt Rate - PINF [facility] Comment on above: These results are [...] mg/dL 74 - 99 mg/dL [facility] Interpretation and review of laboratory results Abnormal [facility] Potassium [Moles/Vol] 4.2 mmol/L 3.7 - 5.3 mmol/L [facility] Comment on above: Specimen hemolysis h as exceeded the interference as defined by Denise. Value may be falsely increased. Suggest recollection if clinically indicated. Sodium [Moles/Vol] 140 mmol/L 136 - 145 mmol/L [facility] Urea nitrogen [Mass/Vol] 6 mg/dL 6 - 20 mg/dL [facility] CBC with Auto Differentialon 01-22-2025 Basophils (Bld) [#/Vol] 0.03 10*3/uL [facility] Basophils/100 WBC (Bld) 1 % 0 - 2 % [facility] Eosinophils (Bld) [#/Vol] [facility] Eosinophils/100 WBC (Bld) 1 % 1 - 4 % [facility] Erythrocyte distribution width (RBC) [Ratio] 12.5 % 11.8 - 14.4 % [facility] Hematocrit (Bld) [Volume fraction] 36.7 % 36.3 - 47.1 % [facility] Hemoglobin (Bld) [Mass/Vol] 11.8 g/dL Low 11.9 - 15.1 g/dL [facility] Immature granulocytes (Bld) [#/Vol] [facility] Immature granulocytes/100 WBC (Bld) 0 % 0 [facility] Interpretation and review of laboratory results Abnormal [facility] Lymphocytes/100 WBC (Bld) 34 % 24 - 43 % [facility] Lymphocytes/100 WBC (Bld) 1.19 % [facility] MCH (RBC) [Entitic mass] 27.6 pg 25.2 - 33.5 pg [facility] MCHC (RBC) [Mass/Vol] 32.2 g/dL 28.4 - 34.8 g/dL [facility] MCV (RBC) [Entitic vol] 85.7 fL 82.6 - 102.9 fL [facility] Monocytes/100 WBC (Bld) 9 % 3 - 12 % [facility] Monocytes/100 WBC (Bld) 0.3 % [facility] Neutrophils/100 WBC (Bld) 55 % 36 - 65 % [facility] Nucleated RBC/100 WBC (Bld) [Ratio] 0 % 0.0 per 100 WBC [facility] Platelet mean volume (Bld) [Entitic vol] 9.1 fL 8.1 - 13.5 fL [facility] Platelets (Bld) [#/Vol] 217 10*3/uL [facility] RBC (Bld) [#/Vol] 4.28 10*6/uL 3.95 - 5.1 1 m/uL [facility] Segmented neutrophils/100 WBC (Bld) 1.96 % [facility] WBC other (Bld) [#/Vol] 3.5 [facility] CBC with Diffon 01-22-2025 Abs. Basophil 0.03 k/uL Normal 0.00-0.20 [facility] Comment on above: Performed By: #### C DP #### [address] [address] [employer] Cannoneer: Alejandro Salazar MD Abs. Eosinophil <0.03 Normal 0.00-0.44 [facility] Comment on above: Performed By: #### C DP #### [address] [address] [employer] Cannoneer: Alejandro Salazar MD Abs.Imm.Granulocyte <0.03 Normal 0.00-0.30 [facility] Comment on above: Performed By: #### C DP #### [address] [address] [employer] Cannoneer: Alejandro Salazar MD Abs.Neutrophil (Seg) 1.96 k/uL Normal 1.50-8.10 [facility] Comment on above: Performed By: #### C DP #### [address] [address] [employer] Cannoneer: Alejandro Salazar MD Basophils/100 WBC (Bld) 1 % Normal 0-2 [facility] Comment on above: Performed By: #### C DP #### [address] [address] [employer] Cannoneer: Alejandro Salazar MD Eosinophils/100 WBC (Bld) 1 % Normal 1-4 [facility] Comment on above: Performed By: #### C DP #### [address] [address] [employer] Cannoneer: Alejandro Salazar MD Erythrocyte distribution width (RBC) [Ratio] 12.5 % Normal 11.8-14.4 [facility] Comment on above: Performed By: #### C DP #### [address] [address] [employer] Cannoneer: Alejandro Salazar MD Hematocrit (Bld) [Volume fraction] 36.7 % Normal 36.3-47.1 [facility] Comment on above: Performed By: #### C DP #### [address] [address] [employer] Cannoneer: Alejandro Salazar MD Hemoglobin (Bld) [Mass/Vol] 11.8 g/dL Low 11.9-15.1 [facility] Comment on above: Performed By: #### C DP #### [address] [address] [employer] Cannoneer: lAejandro Salazar MD Immature granulocytes/100 WBC (Bld) 0 % Normal 0 [facility] Comment on above: Performed By: #### C DP #### [address] [address] [employer] Cannoneer: Alejandro Salazar MD Lymphocytes (Bld) [#/Vol] 1.19 10*3/uL Normal 1.10-3.70 [facility] Comment on above: Performed By: #### C DP #### [address] [address] [employer] Cannoneer: Alejandro Salazar MD Lymphocytes/100 WBC (Bld) 34 % Normal 24-43 [facility] Comment on above: Performed By: #### C DP #### [address] [address] [employer] Cannoneer: Alejandro Salazar MD MCH (RBC) [Entitic mass] 27.6 pg Normal 25.2-33.5 [facility] Comment on above: Performed By: #### C DP #### [address] [address] [employer] Cannoneer: Alejandro Salazar MD MCHC (RBC) [Mass/Vol] 32.2 g/dL Normal 28.4-34.8 [facility] Comment on above: Performed By: #### C DP #### [address] [address] [employer] Cannoneer: Alejandro Salazar MD MCV (RBC) [Entitic vol] 85.7 fL Normal 82.6-102.9 [facility] Comment on above: Performed By: #### C DP #### [place] [address] [employer] Cannoneer: Alejandro Salazar MD Monocytes (Bld) [#/Vol] 0.30 10*3/uL Normal 0.10-1.20 [facility] Comment on above: Performed By: #### C DP #### [place] [address] [employer] Cannoneer: Alejandro Salazar MD Monocytes/100 WBC (Bld) 9 % Normal 3-12 [facility] Comment on above: Performed By: #### C DP #### [address] [address] [employer] Cannoneer: Alejandro Salazar MD Neutrophil (Seg) 55 % Normal 36-65 [facility] Comment on above: Performed By: #### C DP #### [place] [address] [employer] Cannoneer: Alejandro Salazar MD NRBC Automated 0.0 per 100 WBC Normal 0.0 [facility] Comment on above: Performed By: #### C DP #### [place] [address] [employer] Cannoneer: Alejandro Salazar MD Platelet mean volume (Bld) [Entitic vol] 9.1 fL Normal 8.1-13.5 [facility] Comment on above: Performed By: #### C DP #### [facility] [address] [place] [address] [employer] Art[employer] Cannoneer: Alejandro Salazar MD Platelets (Bld) [#/Vol] 217 10*3/uL Normal 138-453 [facility] Comment on above: Performed By: #### C DP #### [facility] [address] [place] [address] [employer] Cannoneer: Alejandro Salazar MD RBC (Bld) [#/Vol] 4.28 10*6/uL Normal 3.95-5.11 [facility] Comment on above: Performed By: #### C DP #### [facility] [address] [place] [address] [employer] Cannoneer: Alejandro Salazar MD WBC (Bld) [#/Vol] 3.5 10*3/uL Normal 3.5-11.3 [facility] Comment on above: Performed By: #### C DP #### [facility] [address] [place] [address] [employer] Cannoneer: Alejandro Salazar MD FLUORO FOR SURGICAL PROCEDUR ESon 01-22-2025 FLUORO FOR SURGICAL PROCEDURES Radiology exam is complete. No Radiologist dictation. Please follow up with ordering provider. Final result Normal [facility] Guidance-- during surgeryon 01-22-2025 Radiology exam is complete. No Radiologist dictation. Please follow up with ordering provider. PN RIS CONSOLIDATED Lactic Acidon 01-22-2025 Lactic Acid, Whole Blood 1 mmol/L 0.7 - 2.1 mmol/L [facility] Lactic Acid,Whole Bl 1.0 mmol/L Normal 0.7-2.1 [facility] Comment on above: Performed By: #### L ACTIC #### [facility] [address] [place] [address] [employer] Cannoneer: Alejandro Salazar MD PREVIOUS SPECIMENon 01-23-20 25 [facility] Urine Cultureon 01-21-2025 Bacteria identified Cx Nom (U) ORGANISM: Escherichia coli (O:ESCCOL) [place] Count >100,000 Aerobic ANASTASIA Charge (NMIC56) ---- [...] RESISTANT TO ALL B-LACTAM DRUGS. PERFORMED BY: [place] [address] PATHOLOGIST ROTARY LITHOGRAPHIC PRESS OPERATOR DAVID TIERNEY M.D. Normal [facility] Comment on above: Performed By: #### C UU #### [address] [place] VOIDING URETHROCYSTOGRAM S AND Ion 01-17-2025 [place] VOIDING URETHROCYSTOGRAM S AND I EXAMINATION: VOIDING CYSTO URETHROGRAM 01/17/2025 7:55 am COMPARISON: None. HISTORY: ORDERING SYSTEM PROVIDED HISTORY: VUR (vesicoureteric reflux) TECHNOLOGIST PROVIDED HISTORY: Is the patient ?->No Reason for Exam: frequent UTI, kidney stones FLUOROSCOPY DOSE AND TYPE: Radiation Exposure Index: DAP 184.05gScuy6, FINDINGS: 600 mL of Cystografin was instilled [...] Casey Sharma MD 01/17/25 Final result Normal [facility] [place] VOIDING URETHROCYSTOGRAM S&Ion 01-17-2025 1. No evidence for vesicoureteric reflux. 2. Small postvoid residual. [facility] RIS CONSOLIDATED EXAMINATION: VOIDING CYSTO URETHROGRAM 01/17/2025 7:55 am COMPARISON: None. HISTORY: ORDERING SYSTEM PROVIDED HISTORY: VUR (vesicoureteric reflux) TECHNOLOGIST PROVIDED HISTORY: Is the patient ?->No Reason for Exam: frequent UTI, kidney stones FLUOROSCOPY DOSE AND TYPE: Radiation Exposure Index: DAP 184.67kQzpp2, FINDINGS: 600 mL of Cystografin was instilled [...] the urethra. There is small postvoid residual. [facility] RIS CONSOLIDATED Casey Sharma MD - 01/17/2025 EXAMINATION: VOIDING CYSTO URETHROGRAM 01/17/2025 7:55 am COMPARISON: None. HISTORY: ORDERING SYSTEM PROVIDED HISTORY: VUR (vesicoureteric reflux) TECHNOLOGIST PROVIDED HISTORY: Is the patient ?->No Reason for Exam: frequent UTI, kidney stones FLUOROSCOPY DOSE AND TYPE: Radiation Exposure Index: DAP 184.64qLzcg5, FINDINGS: 600 mL of Cystografin was instilled [...] reflux. 2. Small postvoid residual. [facility] Radiology Study observation (narrative) [facility] [place] VOIDING URETHROCYSTOGRAM S&IOrdered By: Casey Sharma on 01-17-2025 [facility] Work Phone: [place] KIDNEY W FLOW [...] Glen Perez MD 01/16/25 Final result Normal [facility] Urine Cultureon 12-02-2024 Bacteria identified Cx Nom (U) 30,000 colonies/ml mixed bacterial skin contaminants 2 Days PERFORMED BY: [place] [address] PATHOLOGIST ROTARY LITHOGRAPHIC PRESS OPERATOR DAVID TIERNEY M.D. Normal [facility] Comment on above: Performed By: #### C UU #### [address] Urine cultureOrdered By: Vicente Snyder on 12-02-2024 Bacteria identified Cx Nom (U) Urine culture [facility] Cholesterol [Mass/volume] in Serum or PlasmaOrdered By: Arnulfo Aviles on 04-09-2024 Cholesterol [Mass/Vol] 150 mg/dL 140-200 [facility] Comment on above: Chol less than 200 m g/dl low riskChol 201-239 mg/dl borderline riskChol 240 mg/dl and greater high risk Cholesterol in LDL Calc [Mas s/Vol]Ordered By: Arnulfo Aviles on 04-09-2024 Cholesterol in LDL [Mass/Vol] 90 mg/dL 0-100 [facility] Comment on above: LDL ATP III CLASSIFI CATIONLDL less than 100 mg/dL OptimalLDL 100-129 mg/dL Near or above optimalLDL 130-159 mg/dL Borderline highLDL 160-189 mg/dL HighLDL greater than 189 mg/dL Very high Cholesterol in VLDL Calc [Ma ss/Vol]Ordered By: Arnulfo Aviles on 04-09-2024 Cholesterol in VLDL [Mass/Vol] 16 mg/dL [facility] Serum or plasma high density lipoprotein (HDL) cholesterol measurementOrdered By: Arnulfo Aivles on 04-09-2024 Cholesterol in HDL [Mass/Vol] 44 mg/dL 23-92 [facility] Comment on above: HDL CHOL ATP-III CLA SSIFICATION Cardiovascular RiskHDL > or equal to 60 mg/dL LOWHDL < 40 mg/dL HIGH Serum or plasma total choles terol/high density lipoprotein (HDL) cholesterol mass ratOrdered By: Arnulfo Aviles on 04-09-2024 Cholesterol.total/Cho lesterol in HDL [Mass ratio] 3.4 {ratio} <5.0 [facility] Thyrotropin [Units/volume] i n Serum or PlasmaOrdered By: Arnulfo Aviles on 04-09-2024 TSH Qn 2.01 m[IU]/L 0.45-5.33 [facility] Triglyceride [Mass/volume] i n Serum or PlasmaOrdered By: Arnulfo Aviles on 04-09-2024 Triglyceride [Mass/Vol] 82 mg/dL 0-149 [facility] Comment on above: TRIG ATP III CLASSIF ICATIONTRIG less than 150 mg/dL NormalTRIG 150-199 mg/dL Borderline highTRIG 200-500 mg/dL High TRIG greater than 500 mg/dL Very highStandard traceable to the Center for Disease Conrtrol and Prevention (CDC) test method. Vitamin D+Metabolites [Mass/ volume] in Serum or PlasmaOrdered By: Arnulfo Aviles on 04-09-2024 Vitamin D+Metabolites [Mass/Vol] 26.2 ng/mL 30-100 [facility] Comment on above: VITAMIN D STATUS 25( [place])VITAMIN D RANGE (ng/mL) Deficient <20 Insufficient 20 to <30Sufficient 30 to 100Reference: José Miguel MF,Jennifer NC, Mady MARTI, et al. Evaluation,treatment, and prevention of vitamin D deficiency; an Endocrine Society clinical practice guideline. JCEM. 2010; 96(7):1911-30. Patient Letter FTon 2023 Patient Letter [facility] December 04, 2023 DIANA BARRIGA [address] [place] [id number] : 1990 Dear Diana, You missed your [...] [facility] [address], [place] [address] [facility] Lab Reportson 06-05-2023 Lab Reports [id number]#1 .00CD:127 [facility] Reminderson 04-24-2023 Reminders - From: Whitney [...] the pt with the results. duplicate message [facility] Operative Reporton Operative Report [id number]#1. 00CD:127 [facility] RAD - MISCon 04-10-2023 RAD - MISC [id number]#1 .00CD:127 [facility] Lab Reportson 04-06-2023 Lab Reports [id number]#1 .00CD:127 [facility] Lab Reports [id number] .00CD:127 [facility] Lab Reportson 03-23-2023 Lab Reports [id number]#1 .00CD:127 [facility] Lab Reports [id number]#1 .00CD:127 Normal [facility] Lab Reports [id number]#1 .00CD:127 Normal [facility] RAD - CT Reporton 03-23-2023 RAD - CT Report [id number]#1 .00CD:127 Normal [facility] RAD - CT Report [id number]#1 .00CD:127 Normal [facility] Ambulatory Visit Summaryon 0 03-20-2023 [...] Where: [facility] [address] [place] [address]- Medications What When Instructions Unchanged olanzapine-samidorpha n [...] handful of b (more content not included)... [facility] Consent for Procedure/Surger yon 03-20-2023 Consent for Procedure/Surgery [id number]#1 .00CD:127 [facility] Patient Educationon 03-20-20 23 Patient Education [...] Spinach (cooked), rhubarb, beets, sweet potatoes, and [place]guillan chard. ? Peanuts. ? Potato chips, ukrainian fries, and baked potatoes with skin on. ? Nuts and nut products. ? Chocolate. ? If you regularly take a diuretic medicine, make sure to eat at least 1 or 2 servings of fruits or vegetables that are high in potassium each day. These include: ? Avocado. ? Banana. ? Hayden, prune, carrot, or tomato juice. ? Baked [...] fish oil, or vitamin B6. ? Take adge-jzv-orwasvk and prescription medicines only as told by your health care provider. These include supplements. What foods should I limit? Limit your in (more content not included)... Normal [facility] Urology Office/Clinic Noteon 03-20-2023 Urology [...] Lt kidney pain. Did got to the [place] ER. DX'd & treated for UTI. (NEG [...] L. Ox slightly elevated. Pt presented to [facility] ER on 03/06/23 due to [...] mg qd. SEs discussed. [facility] -Electrolyte panel 4 weeks to the day [...] MD, URL [facility] [address] [place] [address]- Additional Instructions: schedule R ESWL Patient Education [...] kidney s (more content not included)... Normal [facility] Comment on above: Result Comment: Elec tronically Signed By: Nona RAYGOZA MD\.br\Date and Time Signed: 03/20/23 11:30 EDT\.br\Electronically Co-Signed By: Whitney Collier\.br\Date and Time Co-Signed: 03/20/23 11:28 EDT CBC AUTO DIFFon 02-16-2023 BASO # 0.1 103/ul Normal 0.0-0.1 [facility] Comment on above: Performed By: #### U KJ 24 #### [facility] [address] [address] [address] Ramses Dumas Basophils/100 WBC (Bld) 0.5 % Normal 0.2-2.0 [facility] Comment on above: Performed By: #### U KJ 24 #### [facility] [address] [address] [address] Ramses Dumas EO # 0.0 103/ul Normal 0.0-0.7 [facility] Comment on above: Performed By: #### U KJ 24 #### [facility] [address] [place] [address] Dr. Ramses Dumas Eosinophils/100 WBC (Bld) 0.4 % Critically low 0.9-7.0 [facility] Comment on above: Performed By: #### U KJ 24 #### [facility] [address] [place] [address] Dr. Ramses Dumas Erythrocyte distribution width (RBC) [Ratio] 13.7 % Normal 11.0-15.0 [facility] Comment on above: Performed By: #### U KJ 24 #### [facility] [address] [place] [address] Dr. Ramses Dumas Hematocrit (Bld) [Volume fraction] 45.1 % Normal 36.0-48.0 [facility] Comment on above: Performed By: #### U KJ 24 #### [facility] [address] [place] [address] Dr. Ramses Dumas Hemoglobin (Bld) [Mass/Vol] 14.3 g/dL Normal 12.0-16.0 [facility] Comment on above: Performed By: #### U KJ 24 #### [facility] [address] [place] [address] Dr. Ramses Dumas IG # 0.02 10e3/ul Normal 0.00-0.03 [facility] Comment on above: Performed By: #### U KJ 24 #### [facility] [address] [place] [address] Dr. Ramses Dumas IG % 0.2 % Normal 0.0-0.5 [facility] Comment on above: Performed By: #### U KJ 24 #### [facility] [address] [place] [address] Dr. Ramses Dumas LYMPH # 2.5 103/ul Normal 1.2-3.8 [facility] Comment on above: Performed By: #### U KJ 24 #### [facility] [address] [place] [address] Dr. Ramses Dumas Lymphocytes/100 WBC (Bld) 26.4 % Normal 20.5-60.0 [facility] Comment on above: Performed By: #### U KJ 24 #### [facility] [address] [address] [address] Ramses Dumas MANUAL DIFF REQ NO Normal [facility] Comment on above: Performed By: #### U KJ 24 #### [facility] [address] [place] [address] Dr. Ramses Dumas MCH (RBC) [Entitic mass] 25.6 pg Critically low 26.7-34.0 [facility] Comment on above: Performed By: #### U KJ 24 #### [facility] [address] [place] [address] Dr. Ramses Dumas MCHC (RBC) [Mass/Vol] 31.7 g/dL Normal 29.9-35.2 [facility] Comment on above: Performed By: #### U KJ 24 #### [facility] [address] [place] [address] Dr. Ramses Dumas MCV (RBC) [Entitic vol] 80.7 fL Critically low 81.0-99.0 [facility] Comment on above: Performed By: #### U KJ 24 #### [facility] [address] [place] [address] Dr. Ramses Dumas MONO # 0.7 103/ul Normal 0.3-0.8 [facility] Comment on above: Performed By: #### U KJ 24 #### [facility] [address] [place] [address] Dr. Ramses Dumas Monocytes/100 WBC (Bld) 7.6 % Normal 1.7-12.0 [facility] Comment on above: Performed By: #### U KJ 24 #### [facility] [address] [place] [address] Dr. Ramses Dumas NEUT # 6.1 103/ul Normal 1.4-6.5 [facility] Comment on above: Performed By: #### U KJ 24 #### [facility] [address] [place] [address] Dr. Ramses Dumas Neutrophils/100 WBC (Bld) 64.9 % Normal 43.0-75.0 [facility] Comment on above: Performed By: #### U KJ 24 #### [facility] [address] [address] [address] Ramses Dumas Platelet mean volume (Bld) [Entitic vol] 11.0 fL Normal 9.5-13.5 [facility] Comment on above: Performed By: #### U KJ 24 #### [facility] [address] [address] [address] Ramses Dumas PLT 270 103/ul Normal 150-450 [facility] Comment on above: Performed By: #### U KJ 24 #### [facility] [address] [address] [address] Ramses Dumas RBC 5.59 106/ul Critically high 4.20-5.40 [facility] Comment on above: Performed By: #### U KJ 24 #### [facility] [address] [place] [address] Dr. Ramses Dumas WBC 9.4 103/ul Normal 4.0-11.0 [facility] Comment on above: Performed By: #### U KJ 24 #### [facility] [address] [place] [address] ABD/PELV W CONon [...] FARTUN NOVOA Date: 2023-02-16 18:21 Normal [facility] URINE PROFILEon 3 Bilirubin Ql (U) SMALL Abnormal NEGATIVE [facility] Comment on above: Performed By: #### C MP #### [facility] [address] [place] [address] Dr. Ramses Dumas Clarity (U) CLEAR Normal CLEAR [facility] Comment on above: Performed By: #### C MP #### [facility] [address] [place] [address] Dr. Ramses Dumas Color (U) YELLOW Normal YELLOW [facility] Comment on above: Performed By: #### C MP #### [facility] [address] [place] [address] Dr. Ramses Dumas ERUCARLOS ENRIQUE A micrscopic examination will be performed if indicated. Normal [facility] Comment on above: Performed By: #### C MP #### [facility] [address] [place] [address] Dr. Ramses Dumas Glucose Ql (U) Negative Normal NEGATIVE [facility] Comment on above: Performed By: #### C MP #### [facility] [address] [place] [address] Dr. Ramses Dumas Hemoglobin Ql (U) Negative Normal NEGATIVE [facility] Comment on above: Performed By: #### C MP #### [facility] [address] [place] [address] Dr. Ramses Dumas Ketones Ql (U) 40 mg/dl Abnormal NEGATIVE [facility] Comment on above: Performed By: #### C MP #### [facility] [address] [place] [address] Dr. Ramses Dumas LEUKOCYTES SMALL Abnormal NEGATIVE [facility] Comment on above: Performed By: #### C MP #### [facility] [address] [place] [address] Dr. Ramses Dumas Nitrite Ql (U) Negative Normal NEGATIVE [facility] Comment on above: Performed By: #### C MP #### [facility] [address] [place] [address] Dr. Ramses Dumas pH (U) 7.0 [pH] Normal 5-9 [facility] Comment on above: Performed By: #### C MP #### [facility] [address] [place] [address] Dr. Ramses Dumas Protein (U) [Mass/Vol] 30 mg/dL Abnormal NEGATIVE/ TRACE [facility] Comment on above: Performed By: #### C MP #### [facility] [address] [place] [address] Dr. Ramses Dumas SPEC GRAVITY 1.020 Normal 1.005-<=1.02 5 [facility] Comment on above: Performed By: #### C MP #### [facility] [address] [place] [address] Dr. Ramses Dumas UR MICRO IND INDICATED Normal [facility] Comment on above: Performed By: #### C MP #### [facility] [address] [place] [address] Dr. Ramses Dumas Urobilinogen Qn (U) 4 {Lucero'U}/dL Abnormal 0.2 - 1.0 [facility] Comment on above: Performed By: #### C MP #### [facility] [address] [place] [address] Dr. Ramses Dumas LIPASEon 02-16-2023 Lipase [Catalytic activity/Vol] 67.0 U/L Critically low 73.0-393.0 [facility] Comment on above: Performed By: #### U RCX #### [facility] [address] [address] [address] Ramses Dumas LIVER PROFILEon 02-16-2023 Albumin [Mass/Vol] 4.1 g/dL Normal 3.4-5.0 [facility] Comment on above: Performed By: #### U RCX #### [facility] [address] [place] [address] Dr. Ramses Dumas Albumin/Globulin [Mass ratio] 1.0 {ratio} Normal [facility] Comment on above: Performed By: #### U RCX #### [facility] [address] [address] [address] Ramses Dumas ALP [Catalytic activity/Vol] 85 U/L Normal 46-116 [facility] Comment on above: Performed By: #### U RCX #### [facility] [address] [place] [address] Dr. Ramses Dumas ALT [Catalytic activity/Vol] 61 U/L Critically high 14-59 [facility] Comment on above: Performed By: #### U RCX #### [facility] [address] [place] [address] Dr. Ramses Dumas AST [Catalytic activity/Vol] 43 U/L Critically high 15-37 [facility] Comment on above: Performed By: #### U RCX #### [facility] [address] [place] [address] Dr. Ramses Dumas BILI, CONJUGATED 0.1 mg/dL Normal 0.0-0.2 [facility] Comment on above: Performed By: #### U RCX #### [facility] [address] [place] [address] Dr. Ramses Dumas Bilirubin [Mass/Vol] 0.7 mg/dL Normal 0.2-1.0 [facility] Comment on above: Performed By: #### U RCX #### [facility] [address] [place] [address] Dr. Ramses Dumas Globulin (S) [Mass/Vol] 4.2 g/dL Normal [facility] Comment on above: Performed By: #### U RCX #### [facility] [address] [address] [address] Ramses Dumas Protein [Mass/Vol] 8.3 g/dL Critically high 6.4-8.2 [facility] Comment on above: Performed By: #### U RCX #### [facility] [address] [address] [address] Ramses Dumas URon 02-16-2023 , QUAL Negative Normal NEGATIVE [facility] Comment on above: Performed By: #### C MP #### [facility] [address] [place] [address] Dr. Ramses Dumas PROF CHEM 8 (BAS METB)on Anion gap [Moles/Vol] 14.2 mmol/L Normal [facility] Comment on above: Performed By: #### U RCX #### [facility] [address] [place] [address] Dr. Ramses Dumas Calcium [Mass/Vol] 9.5 mg/dL Normal 8.5-10.1 [facility] Comment on above: Performed By: #### U RCX #### [facility] [address] [address] [address] Ramses Dumas Chloride [Moles/Vol] 102 mmol/L Normal 98-107 [facility] Comment on above: Performed By: #### U RCX #### [facility] [address] [place] [address] Dr. Ramses Dumas CO2 [Moles/Vol] 27.5 mmol/L Normal 21.0-32.0 [facility] Comment on above: Performed By: #### U RCX #### [facility] [address] [place] [address] Dr. Ramses Dumas Creatinine [Mass/Vol] 0.71 mg/dL Normal 0.55-1.02 [facility] Comment on above: Performed By: #### U RCX #### [facility] [address] [place] [address] Dr. Ramses Dumas EGFR-AF SUDANESE >60 Normal >=60 [facility] Comment on above: Performed By: #### U RCX #### [facility] [address] [address] [address] Ramses Dumas EGFR-NON AF SUDANESE >60 Normal >=60 [facility] Comment on above: Performed By: #### U RCX #### [facility] [address] [address] [address] Ramses Dumas Glucose [Mass/Vol] 90 mg/dL Normal 74-106 [facility] Comment on above: Performed By: #### U RCX #### [facility] [address] [address] [address] Ramses Dumas Potassium [Moles/Vol] 3.7 mmol/L Normal 3.5-5.1 [facility] Comment on above: Performed By: #### U RCX #### [facility] [address] [place] [address] Dr. Ramses Dumas Sodium [Moles/Vol] 140 mmol/L Normal 136-145 [facility] Comment on above: Performed By: #### U RCX #### [facility] [address] [place] [address] Dr. Ramses Dumas Urea nitrogen [Mass/Vol] 6.0 mg/dL Critically low 7.0-18.0 [facility] Comment on above: Performed By: #### U RCX #### [facility] [address] [place] [address] Dr. Ramses Dumas Urea nitrogen/Creatinine [Mass ratio] 8.5 mg/mg Normal [facility] Comment on above: Performed By: #### U RCX #### [facility] [address] [place] [address] Dr. Ramses Dumas URINE MICROSCOPIC ONLYon BACTERIA NONE SEEN Normal NONE SEEN [facility] Comment on above: Performed By: #### U KJ 24 #### [facility] [address] [place] [address] Dr. Ramess Dumas Bacteria identified Cx Nom (U) NOT INDICATED Normal [facility] Comment on above: Performed By: #### U KJ 24 #### [facility] [address] [place] [address] Dr. Ramses Dumas CAST NONE SEEN Normal NONE SEEN [facility] Comment on above: Performed By: #### U KJ 24 #### [facility] [address] [place] [address] Dr. Ramses Dumas Crystals LM Nom (Urine sed) NONE SEEN Normal NONE SEEN [facility] Comment on above: Performed By: #### U KJ 24 #### [facility] [address] [place] [address] Dr. Ramses Dumas Epithelial cells LM Ql (Urine sed) FEW Abnormal NONE SEEN /RARE [facility] Comment on above: Performed By: #### U KJ 24 #### [facility] [address] [place] [address] Dr. Ramses Dumas MUCOUS SMALL Abnormal NONE SEEN [facility] Comment on above: Performed By: #### U KJ 24 #### [facility] [address] [place] [address] Dr. Ramses Dumas RBC NONE SEEN Abnormal 0-2 [facility] Comment on above: Performed By: #### U KJ 24 #### [facility] [address] [place] [address] Dr. Ramses Dumas WBC 0-2 Abnormal NONE SEEN [facility] Comment on above: Performed By: #### U KJ 24 #### [facility] [address] [place] [address] Dr. Ramses Dumas PAP ACOG PANEL 2: 30 to 65on 02-10-2023 . . Normal [facility] Comment on above: Result Comment: Perf ormed at: WB Performed By: #### U RCX #### [facility] [address] [place] [address] Dr. Ramses Dumas Age Gdln ACOG Testing 30-65 Normal [facility] Comment on above: Performed By: #### U RCX #### [facility] [address] [place] [address] Dr. Ramses Dumas DIAGNOSIS: Comment Normal [facility] Comment on above: Result Comment: NEGA TIVE FOR INTRAEPITHELIAL LESION OR MALIGNANCY. REACTIVE CELLULAR CHANGES AND/OR REPAIR ARE PRESENT. Performed at: WB Performed By: #### U RCX #### [facility] [address] [address] [address] Ramses Dumas Electronically signed by: Comment Normal [facility] Comment on above: Result Comment: Chelsey Boston MD, Pathologist Performed at: WB Performed By: #### U RCX #### [facility] [address] [address] [address] Ramses Dumas HPV Aptima Negative Normal Negative [facility] Comment on above: Result Comment: This nucleic acid amplification test detects fourteen high-risk HPV types (16,18,31,33,35,39,45,51,52,56,58,59,66,68) without differentiation. Performed at: =G Performed By: #### U RCX #### [facility] [address] [place] [address] Dr. Ramses Dumas HPV Genotype Reflex Comment Normal [facility] Comment on above: Result Comment: Crit eria not met, HPV Genotype not performed. Performed at: WB Performed By: #### U RCX #### [facility] [address] [place] [address] Dr. Ramses Dumas Methodology: Comment Normal [facility] Comment on above: Result Comment: This liquid based ThinPrep(R) pap test was screened with the use of an image guided system. Performed at: WB Performed By: #### U RCX #### [facility] [address] [place] [address] Dr. Ramses Dumas Note: Comment Normal [facility] Comment on above: Result Comment: The Pap smear is a screening test designed to aid in the detection of premalignant and malignant conditions of the uterine cervix. It is not a diagnostic procedure and should not be used as the sole means of detecting cervical cancer. Both false-positive and false-negative reports do occur. . Performed at: WB Performed By: #### U RCX #### [facility] [address] [place] [address] Dr. Ramses Dumas Performed by: Comment Normal [facility] Comment on above: Result Comment: Cuca Briceno, Bilingual Sales Representative (ASCP) Performed at: WB Performed By: #### U RCX #### [facility] [address] [address] [address] Ramses Dumas Specimen adequacy: Comment Normal [facility] Comment on above: Result Comment: Sati sfactory for evaluation. Endocervical and/or squamous metaplastic cells (endocervical component) are present. Performed at: WB Performed By: #### U RCX #### [facility] [address] [address] [address] Ramses Dumas Lab Reportson 12-29-2022 Lab Reports [id number] .[id number]:127 Normal [facility] RAD - MISCon 12-21-2022 RAD - MISC [id number] .[id number]:127 Normal [facility] OXALATE 24HR URINEon 023 Oxalates, Urine 44 mg/L Normal Undefined [facility] Comment on above: Performed By: #### U KJ 24 #### [facility] [address] [place] [address] Dr. Ramses Dumas Oxalates, Urine 24hr 44 mg/24 hr Critically high 4-31 [facility] Comment on above: Performed By: #### U KJ 24 #### [facility] [address] [place] [address] Dr. Ramses Dumas CITRATE URINE 24HRon 023 Citric Acid, U, 24hr 658 mg/24 hr Normal 320-1240 [facility] Comment on above: Result Comment: This test was developed and its performance characteristics determined by [facility]. It has not been cleared or approved by the Food and Drug Administration. Performed By: #### C ITRATU #### [facility] [address] [place] [address] Dr. Ramses Dumas Citric Acid, Urine 658 mg/L Normal Undefined [facility] Comment on above: Performed By: #### C ITRATU #### [facility] [address] [place] [address] Dr. Ramses Dumas MAGNESIUM 24HR URINEon 12-17 Magnesium 24hr Urine 119.0 mg/24 hr Normal 12.0-293.0 [facility] Comment on above: Performed By: #### U RCX #### [facility] [address] [place] [address] Dr. Ramses Dumas Magnesium UR 11.9 mg/dL Normal Not Estab. [facility] Comment on above: Performed By: #### U RCX #### [facility] [address] [place] [address] Dr. Ramses Dumas PHOSPHORUS 24HR URINEon Phosphorus, Urine 81.4 mg/dL Normal Not Estab. The [facility] Comment on above: Performed By: #### B LDCX2 #### [facility] [address] [place] [address] Dr. Ramses Dumas Phosphorus, Urine 24hr 814 mg/24 hr Normal 261-1078 [facility] Comment on above: Performed By: #### B LDCX2 #### [facility] [address] [place] [address] Dr. Ramses Dumas PTH INTACTon 12-17-2022 PTH, Intact 46 pg/mL Normal 15-65 [facility] Comment on above: Performed By: #### U RCX #### [facility] [address] [place] [address] Dr. Ramses Dumas URIC ACID 24 HR URINEon Uric Acid, Urine 69.9 mg/dL Normal Not Estab. [facility] Comment on above: Performed By: #### U KJ 24 #### [facility] [address] [place] [address] Dr. Ramses Dumas Uric Acid, Urine 24hr 699.0 mg/24 hr Normal 173.7-902. 1 [facility] Comment on above: Performed By: #### U KJ 24 #### [facility] [address] [place] [address] Dr. Ramses Dumas BUNon 12-16-2022 Urea nitrogen [Mass/Vol] 7.0 mg/dL Normal 7.0-18.0 [facility] Comment on above: Performed By: #### C BC #### [facility] [address] [place] [address] Dr. Ramses Dumas CALCIUMon 12-16-2022 Calcium [Mass/Vol] 8.8 mg/dL Normal 8.5-10.1 [facility] Comment on above: Performed By: #### C BC #### [facility] [address] [place] [address] Dr. Ramses Dumas CALCIUM 24 HR URINEon 2022 CALC, 24 HR UR 295.0 mg/24 hr Normal 100.0-300.0 [facility] Comment on above: Performed By: #### B LDCX2 #### [facility] [address] [place] [address] Dr. Ramses Dumas UR CALCIUM 29.5 mg/dL Critically high 5.1-21.0 [facility] Comment on above: Performed By: #### B LDCX2 #### [facility] [address] [place] [address] Dr. Ramses Dumas CHLORIDEon 12-16-2022 Chloride [Moles/Vol] 105 mmol/L Normal 98-107 [facility] Comment on above: Performed By: #### C BC #### [facility] [address] [place] [address] Dr. Ramses Dumas CO2on 12-16-2022 CO2 [Moles/Vol] 26.4 mmol/L Normal 21.0-32.0 [facility] Comment on above: Performed By: #### C MP #### [facility] [address] [place] [address] Dr. Ramses Dumas CREA 24 HR URINEon 3 CREA, 24 HR UR 2337.30 mg/24 hr Critically high 800.00 -1,800 .00 [facility] Comment on above: Performed By: #### C VDTBH #### [facility] [address] [place] [address] Dr. Ramses Dumas URINE CREAT 233.73 mg/dL Normal 20.00-300.00 [facility] Comment on above: Performed By: #### C VDTBH #### [facility] [address] [address] [address] Ramses Dumas CREATININEon 12-16-2022 Creatinine [Mass/Vol] 0.70 mg/dL Normal 0.55-1.02 [facility] Comment on above: Performed By: #### C MP #### [facility] [address] [place] [address] Dr. Ramses Dumas EGFR-AF SUDANESE >60 Normal >=60 [facility] Comment on above: Performed By: #### C MP #### [facility] [address] [place] [address] Dr. Ramses Dumas EGFR-NON AF SUDANESE >60 Normal >=60 [facility] Comment on above: Performed By: #### C MP #### [facility] [address] [address] [address] Ramses Dumas NAon 12-16-2022 Sodium [Moles/Vol] 139 mmol/L Normal 136-145 [facility] Comment on above: Performed By: #### C MP #### [facility] [address] [place] [address] Dr. Ramses Dumas POTASSIUMon 12-16-2022 Potassium [Moles/Vol] 4.0 mmol/L Normal 3.5-5.1 [facility] Comment on above: Performed By: #### C MP #### [facility] [address] [place] [address] Dr. Ramses Dumas SODIUM 24 HR URINEon 023 NA, 24 HR UR 193 mmol/24 hr Normal 40-220 [facility] Comment on above: Performed By: #### C VDTBH #### [facility] [address] [place] [address] Dr. Ramses Dumas Sodium (U) [Moles/Vol] 193 mmol/L Critically high 30-90 [facility] Comment on above: Performed By: #### C VDTBH #### [facility] [address] [place] [address] Dr. Ramses Dumas UR TOT VOL 1000 ml/24 HR Normal [facility] Comment on above: Performed By: #### C VDTBH #### [facility] [address] [place] [address] Dr. Ramses Dumas Performed By: #### B LDCX2 #### [facility] [address] [place] [address] Dr. Ramses Dumas URIC ACID SERUMon 12-16-2022 Urate [Mass/Vol] 5.6 mg/dL Normal 2.6-6.0 [facility] Comment on above: Performed By: #### C MP #### [facility] [address] [place] [address] Dr. Ramses Dumas XR KUB 1 VIEWon [...] JENNIFER GATES Date: 2022-12-15 08:26 Normal [facility] CBC AUTO DIFFon 11-07-2022 BASO # 0.0 103/ul Normal 0.0-0.1 [facility] Comment on above: Performed By: #### U RCX #### [facility] [address] [place] [address] Dr. Ramses Dumas Basophils/100 WBC (Bld) 0.7 % Normal 0.2-2.0 [facility] Comment on above: Performed By: #### U RCX #### [facility] [address] [place] [address] Dr. Ramses Dumas EO # 0.1 103/ul Normal 0.0-0.7 [facility] Comment on above: Performed By: #### U RCX #### [facility] [address] [place] [address] Dr. Ramses Dumas Eosinophils/100 WBC (Bld) 1.9 % Normal 0.9-7.0 [facility] Comment on above: Performed By: #### U RCX #### [facility] [address] [place] [address] Dr. Ramses Dumas Erythrocyte distribution width (RBC) [Ratio] 13.6 % Normal 11.0-15.0 [facility] Comment on above: Performed By: #### U RCX #### [facility] [address] [place] [address] Dr. Ramses Dumas Hematocrit (Bld) [Volume fraction] 37.3 % Normal 36.0-48.0 [facility] Comment on above: Performed By: #### U RCX #### [facility] [address] [place] [address] Dr. Ramses Dumas Hemoglobin (Bld) [Mass/Vol] 12.2 g/dL Normal 12.0-16.0 [facility] Comment on above: Performed By: #### U RCX #### [facility] [address] [place] [address] Dr. Ramses Dumas IG # 0.02 10e3/ul Normal 0.00-0.03 [facility] Comment on above: Performed By: #### U RCX #### [facility] [address] [place] [address] Dr. Ramses Dumas IG % 0.3 % Normal 0.0-0.5 [facility] Comment on above: Performed By: #### U RCX #### [facility] [address] [place] [address] Dr. Ramses Dumas LYMPH # 2.3 103/ul Normal 1.2-3.8 [facility] Comment on above: Performed By: #### U RCX #### [facility] [address] [place] [address] Dr. Ramses Dumas Lymphocytes/100 WBC (Bld) 39.6 % Normal 20.5-60.0 [facility] Comment on above: Performed By: #### U RCX #### [facility] [address] [place] [address] Dr. Ramses Dumas MANUAL DIFF REQ NO Normal [facility] Comment on above: Performed By: #### U RCX #### [facility] [address] [address] [address] Ramses Dumas MCH (RBC) [Entitic mass] 26.4 pg Critically low 26.7-34.0 [facility] Comment on above: Performed By: #### U RCX #### [facility] [address] [place] [address] Dr. Ramses Dumas MCHC (RBC) [Mass/Vol] 32.7 g/dL Normal 29.9-35.2 [facility] Comment on above: Performed By: #### U RCX #### [facility] [address] [place] [address] Dr. Ramses Dumas MCV (RBC) [Entitic vol] 80.7 fL Critically low 81.0-99.0 [facility] Comment on above: Performed By: #### U RCX #### [facility] [address] [place] [address] Dr. Ramses Dumas MONO # 0.5 103/ul Normal 0.3-0.8 [facility] Comment on above: Performed By: #### U RCX #### [facility] [address] [place] [address] Dr. Ramses Dumas Monocytes/100 WBC (Bld) 8.0 % Normal 1.7-12.0 [facility] Comment on above: Performed By: #### U RCX #### [facility] [address] [place] [address] Dr. Ramses Dumas NEUT # 2.9 103/ul Normal 1.4-6.5 [facility] Comment on above: Performed By: #### U RCX #### [facility] [address] [place] [address] Dr. Ramses Dumas Neutrophils/100 WBC (Bld) 49.5 % Normal 43.0-75.0 [facility] Comment on above: Performed By: #### U RCX #### [facility] [address] [place] [address] Dr. Ramses Dumas Platelet mean volume (Bld) [Entitic vol] 9.0 fL Critically low 9.5-13.5 [facility] Comment on above: Performed By: #### U RCX #### [facility] [address] [place] [address] Dr. Ramses Dumas PLT 337 103/ul Normal 150-450 [facility] Comment on above: Performed By: #### U RCX #### [facility] [address] [place] [address] Dr. Ramses Dumas RBC 4.62 106/ul Normal 4.20-5.40 [facility] Comment on above: Performed By: #### U RCX #### [facility] [address] [place] [address] Dr. Ramses Dumas WBC 5.9 103/ul Normal 4.0-11.0 [facility] Comment on above: Performed By: #### U RCX #### [facility] [address] [place] [address] Dr. Ramses Dumas POINT OF CARE GLUCOSEon 10-20 Glucose [Mass/Vol] 115 mg/dL Critically high 74-106 [facility] Comment on above: Performed By: #### C VDTBH #### [facility] [address] [place] [address] Dr. Ramses Dumas PREG QUANT HCGon 11-07-2022 HCG QUANT <1 Normal [facility] Comment on above: Performed By: #### C VDTBH #### [facility] [address] [place] [address] Dr. Ramses Dumas HCG RANGE SEE BELOW Normal [facility] Comment on above: Result Comment: 5-50 0.2-1 WEEK 50-500 1-2 WEEKS 100-5,000 2-3 WEEKS 500-10,000 3-4 WEEKS 1,000-50,000 4-5 WEEKS 10,000-100,000 5-6 WEEKS 15,000-200,000 6-8 WEEKS 10,000-100,000 2-3 MONTHS Performed By: #### C VDTBH #### [facility] [address] [place] [address] Dr. Ramses Dumas US PELVIS AND TRANSVAGon [...] cm right ovarian simple cyst Normal [facility] CBC AUTO DIFFon 11-03-2022 BASO # 0.1 103/ul Normal 0.0-0.1 [facility] Comment on above: Performed By: #### U RCX #### [facility] [address] [address] [address] Ramses Dumas Basophils/100 WBC (Bld) 0.8 % Normal 0.2-2.0 [facility] Comment on above: Performed By: #### U RCX #### [facility] [address] [address] [address] Ramses Dumas EO # 0.1 103/ul Normal 0.0-0.7 [facility] Comment on above: Performed By: #### U RCX #### [facility] [address] [address] [address] Ramses Dumas Eosinophils/100 WBC (Bld) 1.4 % Normal 0.9-7.0 [facility] Comment on above: Performed By: #### U RCX #### [facility] [address] [address] [address] Ramses Dumas Erythrocyte distribution width (RBC) [Ratio] 13.4 % Normal 11.0-15.0 [facility] Comment on above: Performed By: #### U RCX #### [facility] [address] [place] [address] Dr. Ramses Dumas Hematocrit (Bld) [Volume fraction] 38.8 % Normal 36.0-48.0 [facility] Comment on above: Performed By: #### U RCX #### [facility] [address] [place] [address] Dr. Ramses Dumas Hemoglobin (Bld) [Mass/Vol] 12.7 g/dL Normal 12.0-16.0 [facility] Comment on above: Performed By: #### U RCX #### [facility] [address] [place] [address] Dr. Ramses Dumas IG # 0.01 10e3/ul Normal 0.00-0.03 [facility] Comment on above: Performed By: #### U RCX #### [facility] [address] [place] [address] Dr. Ramses Dumas IG % 0.1 % Normal 0.0-0.5 [facility] Comment on above: Performed By: #### U RCX #### [facility] [address] [place] [address] Dr. Ramses Dumas LYMPH # 1.9 103/ul Normal 1.2-3.8 [facility] Comment on above: Performed By: #### U RCX #### [facility] [address] [place] [address] Dr. Ramses Dumas Lymphocytes/100 WBC (Bld) 26.4 % Normal 20.5-60.0 [facility] Comment on above: Performed By: #### U RCX #### [facility] [address] [place] [address] Dr. Ramses Dmuas MANUAL DIFF REQ NO Normal [facility] Comment on above: Performed By: #### U RCX #### [facility] [address] [place] [address] Dr. Ramses Dumas MCH (RBC) [Entitic mass] 26.3 pg Critically low 26.7-34.0 [facility] Comment on above: Performed By: #### U RCX #### [facility] [address] [address] [address] Ramses Dumas MCHC (RBC) [Mass/Vol] 32.7 g/dL Normal 29.9-35.2 [facility] Comment on above: Performed By: #### U RCX #### [facility] [address] [address] [address] Ramses Dumas MCV (RBC) [Entitic vol] 80.5 fL Critically low 81.0-99.0 [facility] Comment on above: Performed By: #### U RCX #### [facility] [address] [address] [address] Ramses Dumas MONO # 0.6 103/ul Normal 0.3-0.8 [facility] Comment on above: Performed By: #### U RCX #### [facility] [address] [address] [address] Ramses Dumas Monocytes/100 WBC (Bld) 8.2 % Normal 1.7-12.0 [facility] Comment on above: Performed By: #### U RCX #### [facility] [address] [place] [address] Dr. Ramses Dumas NEUT # 4.5 103/ul Normal 1.4-6.5 [facility] Comment on above: Performed By: #### U RCX #### [facility] [address] [address] [address] Ramses Dumas Neutrophils/100 WBC (Bld) 63.1 % Normal 43.0-75.0 [facility] Comment on above: Performed By: #### U RCX #### [facility] [address] [address] [address] Ramses Dumas Platelet mean volume (Bld) [Entitic vol] 8.9 fL Critically low 9.5-13.5 [facility] Comment on above: Performed By: #### U RCX #### [facility] [address] [place] [address] Dr. Ramses Dumas PLT 340 103/ul Normal 150-450 [facility] Comment on above: Performed By: #### U RCX #### [facility] [address] [address] [address] Ramses Dumas RBC 4.82 106/ul Normal 4.20-5.40 [facility] Comment on above: Performed By: #### U RCX #### [facility] [address] [address] [address] Ramses Dumas WBC 7.1 103/ul Normal 4.0-11.0 [facility] Comment on above: Performed By: #### U RCX #### [facility] [address] [address] [address] Ramses Dumas Covid-19 PCR ([facility])on 10-19 SARS-CoV-2 (COVID-19) RNA FRANCESCA+probe Ql (Unsp spec) Not detected Normal NOT DETECTED [facility] Comment on above: Result Comment: This test is not yet approved or cleared by the [place] FDA. When there are no FDA-approved or cleared tests available, and other criteria are met, FDA can make tests available under an emergency access mechanism called an Emergency Use Authorization (EUA). The EUA for this test is supported by the [place] of Health and Human Service's (HHS's) declaration [...] SARS-CoV-2. Performed By: #### U RCX #### [facility] [address] [place] [address] Dr. Ramses Dumas FREE T4on 11-03-2022 Free T4 [Mass/Vol] 0.99 ng/dL Normal 0.76-1.46 [facility] Comment on above: Performed By: #### B LDCX2 #### [facility] [address] [place] [address] Dr. Ramses Dumas GLYCOHEMOGLOBIN A1Con 2022 ADA RECOMMENDATION SEE BELOW Normal [facility] Comment on above: Result Comment: ADA RECOMMENDED LIMIT 4.0 - 6.0 ADA THERAPEUTIC TARGET < 7.0 ACTION SUGGESTED > 7.0 Performed By: #### C VDTBH #### [facility] [address] [place] [address] Dr. Ramses Dumas Glucose [Mass/Vol] 117 mg/dL Normal [facility] Comment on above: Performed By: #### C VDTBH #### [facility] [address] [place] [address] Dr. Ramses Dumas HbA1c (Bld) [Mass fraction] 5.7 % Normal 4.5-6.2 [facility] Comment on above: Performed By: #### C VDTBH #### [facility] [address] [place] [address] Dr. Ramses Dumas PROTIMEon 11-03-2022 INR Coag (PPP) [Relative time] 0.97 {INR} Normal [facility] Comment on above: Performed By: #### U KJ 24 #### [facility] [address] [place] [address] Dr. Ramses Dumas INR GUIDELINES SEE BELOW Normal [facility] Comment on above: Result Comment: TOÑA RED INR: 2.0 - 3.0 CONDITIONS NOT LISTED BELOW 2.5 - 3.5 FOR PROSTHETIC HEART VALVE REPLACEMENT 2.5 - 3.5 RECURRENT THROMBOSIS Performed By: #### U KJ 24 #### [facility] [address] [place] [address] Dr. Ramses Dumas PT Coag (PPP) [Time] 10.3 s Normal 9.0-11.6 [facility] Comment on above: Performed By: #### U KJ 24 #### [facility] [address] [place] [address] Dr. Ramses Dumas PTTon 11-03-2022 aPTT Coag (Bld) [Time] 27.7 s Normal 22.3-36.2 [facility] Comment on above: Performed By: #### U KJ 24 #### [facility] [address] [address] [address] Ramses Dumas TSHon 11-03-2022 TSH 0.667 uIU/mL Normal 0.358-3.740 [facility] Comment on above: Performed By: #### C VDTBH #### [facility] [address] [address] [address] Ramses Dumas PREG HCG QUALon 09-18-2022 , QUAL Negative Normal NEGATIVE [facility] Comment on above: Performed By: #### U KJ 24 #### [facility] [address] [address] [address] Ramses Dumas Covid-19 PCR ([facility])on 08-20 SARS-CoV-2 (COVID-19) RNA FRANCESCA+probe Ql (Unsp spec) Not detected Normal NOT DETECTED [facility] Comment on above: Result Comment: This test is not yet approved or cleared by the [place] FDA. When there are no FDA-approved or cleared tests available, and other criteria are met, FDA can make tests available under an emergency access mechanism called an Emergency Use Authorization (EUA). The EUA for this test is supported by the [place] of Health and Human Service's (HHS's) declaration [...] SARS-CoV-2. Performed By: #### C VDTBH #### [facility] [address] [place] [address] Dr. Ramses Dumas CBC AUTO DIFFon 09-05-2022 BASO # 0.1 103/ul Normal 0.0-0.1 [facility] Comment on above: Performed By: #### B [id number] #### [facility] [address] [place] [address] Dr. Ramses Dumas Basophils/100 WBC (Bld) 0.7 % Normal 0.2-2.0 [facility] Comment on above: Performed By: #### B LDCX2 #### [facility] [address] [place] [address] Dr. Ramses Dumas EO # 0.2 103/ul Normal 0.0-0.7 [facility] Comment on above: Performed By: #### B LDCX2 #### [facility] [address] [place] [address] Dr. Ramses Dumas Eosinophils/100 WBC (Bld) 2.2 % Normal 0.9-7.0 [facility] Comment on above: Performed By: #### B LDCX2 #### [facility] [address] [place] [address] Dr. Ramses Dumas Erythrocyte distribution width (RBC) [Ratio] 13.9 % Normal 11.0-15.0 [facility] Comment on above: Performed By: #### B LDCX2 #### [facility] [address] [place] [address] Dr. Ramses Dumas Hematocrit (Bld) [Volume fraction] 38.8 % Normal 36.0-48.0 [facility] Comment on above: Performed By: #### B LDCX2 #### [facility] [address] [place] [address] Dr. Ramses Dumas Hemoglobin (Bld) [Mass/Vol] 12.6 g/dL Normal 12.0-16.0 [facility] Comment on above: Performed By: #### B [id number] #### [facility] [address] [place] [address] Dr. Ramses Dumas IG # 0.03 10e3/ul Normal 0.00-0.03 [facility] Comment on above: Performed By: #### B LDCX2 #### [facility] [address] [place] [address] Dr. Ramses Dumas IG % 0.3 % Normal 0.0-0.5 [facility] Comment on above: Performed By: #### B [id number] #### [facility] [address] [place] [address] Dr. Ramses Dumas LYMPH # 2.3 103/ul Normal 1.2-3.8 [facility] Comment on above: Performed By: #### B [id number] #### [facility] [address] [place] [address] Dr. Ramses Dumas Lymphocytes/100 WBC (Bld) 21.3 % Normal 20.5-60.0 [facility] Comment on above: Performed By: #### B [id number] #### [facility] [address] [place] [address] Dr. Ramses Dumas MANUAL DIFF REQ NO Normal [facility] Comment on above: Performed By: #### B [id number] #### [facility] [address] [place] [address] Dr. Ramses Dumas MCH (RBC) [Entitic mass] 26.4 pg Critically low 26.7-34.0 [facility] Comment on above: Performed By: #### B [id number] #### [facility] [address] [place] [address] Dr. Ramses Dumas MCHC (RBC) [Mass/Vol] 32.5 g/dL Normal 29.9-35.2 [facility] Comment on above: Performed By: #### B LDCX2 #### [facility] [address] [place] [address] Dr. Ramses Dumas MCV (RBC) [Entitic vol] 81.2 fL Normal 81.0-99.0 [facility] Comment on above: Performed By: #### B [id number] #### [facility] [address] [place] [address] Dr. Ramses Dumas MONO # 0.8 103/ul Normal 0.3-0.8 [facility] Comment on above: Performed By: #### B LDCX2 #### [facility] [address] [place] [address] Dr. Ramses Dumas Monocytes/100 WBC (Bld) 7.4 % Normal 1.7-12.0 [facility] Comment on above: Performed By: #### B [id number] #### [facility] [address] [place] [address] Dr. Ramses Dumas NEUT # 7.3 103/ul Critically high 1.4-6.5 [facility] Comment on above: Performed By: #### B LDCX2 #### [facility] [address] [place] [address] Dr. Ramses Dumas Neutrophils/100 WBC (Bld) 68.1 % Normal 43.0-75.0 [facility] Comment on above: Performed By: #### B LDCX2 #### [facility] [address] [place] [address] Dr. Ramses Dumas Platelet mean volume (Bld) [Entitic vol] 8.8 fL Critically low 9.5-13.5 [facility] Comment on above: Performed By: #### B LDCX2 #### [facility] [address] [place] [address] Dr. Ramses Dumas PLT 323 103/ul Normal 150-450 [facility] Comment on above: Performed By: #### B [id number] #### [facility] [address] [place] [address] Dr. Ramses Dumas RBC 4.78 106/ul Normal 4.20-5.40 [facility] Comment on above: Performed By: #### B [id number] #### [facility] [address] [place] [address] Dr. Ramses Dumas WBC 10.7 103/ul Normal 4.0-11.0 [facility] Comment on above: Performed By: #### B [id number] #### [facility] [address] [place] [address] Dr. Ramses Dumas CULTURE URINEon 09-05-2022 CULTURE URINE Culture Observations : LIGHT GROWTH OF MIXED GENITAL DAIANA. NO POTENTIAL PATHOGENS SEEN. Normal [facility] Comment on above: Performed By: #### U RCX #### [facility] [address] [place] [address] Dr. Ramses Dumas ER URINE PROFILEon 2 Bilirubin Ql (U) Negative Normal NEGATIVE [facility] Comment on above: Performed By: #### B [id number] #### [facility] [address] [place] [address] Dr. Ramses Dumas Clarity (U) CLOUDY Abnormal CLEAR [facility] Comment on above: Performed By: #### B [id number] #### [facility] [address] [place] [address] Dr. Ramses Dumas Color (U) YELLOW Normal YELLOW [facility] Comment on above: Performed By: #### B [id number] #### [facility] [address] [place] [address] Dr. Ramses DELEON A micrscopic examination will be performed if indicated. Normal [facility] Comment on above: Performed By: #### B [id number] #### [facility] [address] [place] [address] Dr. Ramses Dumas Glucose Ql (U) Negative Normal NEGATIVE [facility] Comment on above: Performed By: #### B LDCX2 #### [facility] [address] [place] [address] Dr. Ramses Dumas Hemoglobin Ql (U) LARGE Abnormal NEGATIVE [facility] Comment on above: Performed By: #### B LDCX2 #### [facility] [address] [place] [address] Dr. Ramses Dumas Ketones Ql (U) Negative Normal NEGATIVE [facility] Comment on above: Performed By: #### B LDCX2 #### [facility] [address] [place] [address] Dr. Ramses Dumas LEUKOCYTES SMALL Abnormal NEGATIVE [facility] Comment on above: Performed By: #### B LDCX2 #### [facility] [address] [place] [address] Dr. Ramses Dumas Nitrite Ql (U) Negative Normal NEGATIVE [facility] Comment on above: Performed By: #### B LDCX2 #### [facility] [address] [place] [address] Dr. Ramses Dumas pH (U) 6.0 [pH] Normal 5-9 [facility] Comment on above: Performed By: #### B LDCX2 #### [facility] [address] [place] [address] Dr. Ramses Dumas Protein (U) [Mass/Vol] 100 mg/dL Abnormal NEGATIVE/ TRACE [facility] Comment on above: Performed By: #### B LDCX2 #### [facility] [address] [place] [address] Dr. Ramses Dumas SPEC GRAVITY >=1.030 Abnormal 1.005-<=1.02 5 [facility] Comment on above: Performed By: #### B LDCX2 #### [facility] [address] [place] [address] Dr. Ramses Dumas UR MICRO IND INDICATED Normal [facility] Comment on above: Performed By: #### B LDCX2 #### [facility] [address] [place] [address] Dr. Ramses Dumas Urobilinogen Qn (U) 0.2 {Lucero'U}/dL Normal 0.2 - 1. 0 [facility] Comment on above: Performed By: #### B LDCX2 #### [facility] [address] [place] [address] Dr. Ramses Dumas URon 09-05-2022 , QUAL Negative Normal NEGATIVE [facility] Comment on above: Performed By: #### B LDCX2 #### [facility] [address] [place] [address] Dr. Ramses Dumas PROF CHEM 8 (BAS METB)on Anion gap [Moles/Vol] 11.7 mmol/L Normal [facility] Comment on above: Performed By: #### C MP #### [facility] [address] [place] [address] Dr. Ramses Dumas Calcium [Mass/Vol] 9.1 mg/dL Normal 8.5-10.1 [facility] Comment on above: Performed By: #### C MP #### [facility] [address] [place] [address] Dr. Ramses Dumas Chloride [Moles/Vol] 103 mmol/L Normal 98-107 [facility] Comment on above: Performed By: #### C MP #### [facility] [address] [address] [address] Ramses Dumas CO2 [Moles/Vol] 25.9 mmol/L Normal 21.0-32.0 [facility] Comment on above: Performed By: #### C MP #### [facility] [address] [address] [address] Ramses Dumas Creatinine [Mass/Vol] 0.77 mg/dL Normal 0.55-1.02 [facility] Comment on above: Performed By: #### C MP #### [facility] [address] [address] [address] Ramses Dumas EGFR-AF SUDANESE >60 Normal >=60 [facility] Comment on above: Performed By: #### C MP #### [facility] [address] [address] [address] Ramses Dumas EGFR-NON AF SUDANESE >60 Normal >=60 [facility] Comment on above: Performed By: #### C MP #### [facility] [address] [address] [address] Ramses Dumas Glucose [Mass/Vol] 124 mg/dL Critically high 74-106 [facility] Comment on above: Performed By: #### C MP #### [facility] [address] [address] [address] Ramses Dumas Potassium [Moles/Vol] 3.6 mmol/L Normal 3.5-5.1 [facility] Comment on above: Performed By: #### C MP #### [facility] [address] [address] [address] Ramses Dumas Sodium [Moles/Vol] 137 mmol/L Normal 136-145 [facility] Comment on above: Performed By: #### C MP #### [facility] [address] [address] [address] Ramses Dumas Urea nitrogen [Mass/Vol] 12.0 mg/dL Normal 7.0-18.0 [facility] Comment on above: Performed By: #### C MP #### [facility] [address] [address] [address] Ramses Dumas Urea nitrogen/Creatinine [Mass ratio] 15.6 mg/mg Normal [facility] Comment on above: Performed By: #### C MP #### [facility] [address] [place] [address] Dr. Ramses Dumas URINE MICROSCOPIC ONLYon AMORPHOUS CRYSTALS RARE Normal [facility] Comment on above: Performed By: #### B LDCX2 #### [facility] [address] [place] [address] Dr. Ramses Dumas BACTERIA TRACE Abnormal NONE SEEN [facility] Comment on above: Performed By: #### B LDCX2 #### [facility] [address] [place] [address] Dr. Ramses Dumas Bacteria identified Cx Nom (U) INDICATED Normal [facility] Comment on above: Performed By: #### B LDCX2 #### [facility] [address] [place] [address] Dr. Ramses Dumas CA OX CRYSTALS RARE Normal [facility] Comment on above: Performed By: #### B LDCX2 #### [facility] [address] [place] [address] Dr. Ramses Dumas CAST NONE SEEN Normal NONE SEEN [facility] Comment on above: Performed By: #### B LDCX2 #### [facility] [address] [place] [address] Dr. Ramses Dumas Crystals LM Nom (Urine sed) SEEN Abnormal NONE SEEN [facility] Comment on above: Performed By: #### B LDCX2 #### [facility] [address] [address] [address] Ramses Dumas Epithelial cells LM Ql (Urine sed) FEW Abnormal NONE SEEN /RARE [facility] Comment on above: Performed By: #### B LDCX2 #### [facility] [address] [place] [address] Dr. Ramses Dumas MUCOUS TRACE Abnormal NONE SEEN [facility] Comment on above: Performed By: #### B LDCX2 #### [facility] [address] [address] [address] Ramses Dumas RBC 50-75 Abnormal 0-2 [facility] Comment on above: Performed By: #### B LDCX2 #### [facility] [address] [place] [address] Dr. Ramses Dumas WBC 20-50 Abnormal NONE SEEN [facility] Comment on above: Performed By: #### B LDCX2 #### [facility] [address] [address] [address] Ramses Dumas YEAST PRESENT Abnormal NONE SEEN [facility] Comment on above: Performed By: #### B LDCX2 #### [facility] [address] [place] [address] Dr. Ramses Dumas US KIDNEYSon 09-05-2022 US [...] GLEN PEREZ Date: 2022-09-05 11:00 Normal [facility] CT ABD/PELVIS WO CONon 08-29 [...] ERICKA IGLESIAS Date: 2022-08-29 01:10 Normal [facility] CULTURE URINEon 08-29-2022 CULTURE URINE Culture Observations : LIGHT GROWTH OF MIXED GENITAL DAIANA. NO POTENTIAL PATHOGENS SEEN. Normal [facility] Comment on above: Performed By: #### U RCX #### [facility] [address] [place] [address] Dr. Ramses Dumas CBC AUTO DIFFon 08-28-2022 BASO # 0.1 103/ul Normal 0.0-0.1 [facility] Comment on above: Performed By: #### U RCX #### [facility] [address] [address] [address] Ramses Dumas Basophils/100 WBC (Bld) 0.5 % Normal 0.2-2.0 [facility] Comment on above: Performed By: #### U RCX #### [facility] [address] [place] [address] Dr. Ramses Dumas EO # 0.3 103/ul Normal 0.0-0.7 [facility] Comment on above: Performed By: #### U RCX #### [facility] [address] [address] [address] Ramses Dumas Eosinophils/100 WBC (Bld) 2.3 % Normal 0.9-7.0 [facility] Comment on above: Performed By: #### U RCX #### [facility] [address] [place] [address] Dr. Ramses Dumas Erythrocyte distribution width (RBC) [Ratio] 13.7 % Normal 11.0-15.0 [facility] Comment on above: Performed By: #### U RCX #### [facility] [address] [place] [address] Dr. Ramses Dumas Hematocrit (Bld) [Volume fraction] 36.7 % Normal 36.0-48.0 [facility] Comment on above: Performed By: #### U RCX #### [facility] [address] [place] [address] Dr. Ramses Dumas Hemoglobin (Bld) [Mass/Vol] 12.3 g/dL Normal 12.0-16.0 [facility] Comment on above: Performed By: #### U RCX #### [facility] [address] [place] [address] Dr. Ramses Dumas IG # 0.16 10e3/ul Critically high 0.00-0.03 [facility] Comment on above: Performed By: #### U RCX #### [facility] [address] [place] [address] Dr. Ramses Dumas IG % 1.1 % Critically high 0.0-0.5 [facility] Comment on above: Performed By: #### U RCX #### [facility] [address] [place] [address] Dr. Ramses Dumas LYMPH # 4.6 103/ul Critically high 1.2-3.8 [facility] Comment on above: Performed By: #### U RCX #### [facility] [address] [place] [address] Dr. Ramses Dumas Lymphocytes/100 WBC (Bld) 31.8 % Normal 20.5-60.0 [facility] Comment on above: Performed By: #### U RCX #### [facility] [address] [place] [address] Dr. Ramses Dumas MANUAL DIFF REQ NO Normal [facility] Comment on above: Performed By: #### U RCX #### [facility] [address] [place] [address] Dr. Ramses Dumas MCH (RBC) [Entitic mass] 26.9 pg Normal 26.7-34.0 [facility] Comment on above: Performed By: #### U RCX #### [facility] [address] [place] [address] Dr. Ramses Dumas MCHC (RBC) [Mass/Vol] 33.5 g/dL Normal 29.9-35.2 [facility] Comment on above: Performed By: #### U RCX #### [facility] [address] [place] [address] Dr. Ramses Dumas MCV (RBC) [Entitic vol] 80.3 fL Critically low 81.0-99.0 [facility] Comment on above: Performed By: #### U RCX #### [facility] [address] [place] [address] Dr. Ramses Dumas MONO # 1.0 103/ul Critically high 0.3-0.8 [facility] Comment on above: Performed By: #### U RCX #### [facility] [address] [place] [address] Dr. Ramses Dumas Monocytes/100 WBC (Bld) 7.0 % Normal 1.7-12.0 [facility] Comment on above: Performed By: #### U RCX #### [facility] [address] [place] [address] Dr. Ramses Dumas NEUT # 8.2 103/ul Critically high 1.4-6.5 [facility] Comment on above: Performed By: #### U RCX #### [facility] [address] [place] [address] Dr. Ramses Dumas Neutrophils/100 WBC (Bld) 57.3 % Normal 43.0-75.0 [facility] Comment on above: Performed By: #### U RCX #### [facility] [address] [place] [address] Dr. Ramses Dumas Platelet mean volume (Bld) [Entitic vol] 8.6 fL Critically low 9.5-13.5 [facility] Comment on above: Performed By: #### U RCX #### [facility] [address] [place] [address] Dr. Ramses Dumas PLT 395 103/ul Normal 150-450 [facility] Comment on above: Performed By: #### U RCX #### [facility] [address] [place] [address] Dr. Ramses Dumas RBC 4.57 106/ul Normal 4.20-5.40 [facility] Comment on above: Performed By: #### U RCX #### [facility] [address] [place] [address] Dr. Ramses Dumas WBC 14.3 103/ul Critically high 4.0-11.0 [facility] Comment on above: Performed By: #### U RCX #### [facility] [address] [place] [address] Dr. Ramses KUMAR URINE PROFILEon 2 Bilirubin Ql (U) Negative Normal NEGATIVE [facility] Comment on above: Performed By: #### U KJ 24 #### [facility] [address] [place] [address] Dr. Ramses Dumas Clarity (U) CLEAR Normal CLEAR [facility] Comment on above: Performed By: #### U KJ 24 #### [facility] [address] [place] [address] Dr. Ramses Dumas Color (U) LT. YELLOW Normal YELLOW [facility] Comment on above: Performed By: #### U KJ 24 #### [facility] [address] [place] [address] Dr. Ramses Dumas ERUAHWalter A micrscopic examination will be performed if indicated. Normal [facility] Comment on above: Performed By: #### U KJ 24 #### [facility] [address] [address] [address] Ramses Dumas Glucose Ql (U) Negative Normal NEGATIVE [facility] Comment on above: Performed By: #### U KJ 24 #### [facility] [address] [place] [address] Dr. Ramses Dumas Hemoglobin Ql (U) LARGE Abnormal NEGATIVE [facility] Comment on above: Performed By: #### U KJ 24 #### [facility] [address] [place] [address] Dr. Ramses Dumas Ketones Ql (U) Negative Normal NEGATIVE [facility] Comment on above: Performed By: #### U KJ 24 #### [facility] [address] [place] [address] Dr. Ramses Dumas LEUKOCYTES MODERATE Abnormal NEGATIVE [facility] Comment on above: Performed By: #### U KJ 24 #### [facility] [address] [place] [address] Dr. Ramses Dumas Nitrite Ql (U) Negative Normal NEGATIVE [facility] Comment on above: Performed By: #### U KJ 24 #### [facility] [address] [place] [address] Dr. Ramses Dumas pH (U) 6.5 [pH] Normal 5-9 [facility] Comment on above: Performed By: #### U KJ 24 #### [facility] [address] [place] [address] Dr. Ramses Dumas Protein (U) [Mass/Vol] 100 mg/dL Abnormal NEGATIVE/ TRACE [facility] Comment on above: Performed By: #### U KJ 24 #### [facility] [address] [place] [address] Dr. Ramses Dumas SPEC GRAVITY 1.020 Normal 1.005-<=1.02 5 [facility] Comment on above: Performed By: #### U KJ 24 #### [facility] [address] [place] [address] Dr. Ramses Dumas UR MICRO IND INDICATED Normal [facility] Comment on above: Performed By: #### U KJ 24 #### [facility] [address] [place] [address] Dr. Ramses Dumas Urobilinogen Qn (U) 0.2 {Lucero'U}/dL Normal 0.2 - 1. 0 [facility] Comment on above: Performed By: #### U KJ 24 #### [facility] [address] [place] [address] Dr. Ramses Dumas PROF 14(COMP METB)on 022 Albumin [Mass/Vol] 3.3 g/dL Critically low 3.4-5.0 [facility] Comment on above: Performed By: #### C MP #### [facility] [address] [place] [address] Dr. Ramses Dumas Albumin/Globulin [Mass ratio] 0.8 {ratio} Normal [facility] Comment on above: Performed By: #### C MP #### [facility] [address] [place] [address] Dr. Ramses Dumas ALP [Catalytic activity/Vol] 108 U/L Normal 46-116 [facility] Comment on above: Performed By: #### C MP #### [facility] [address] [place] [address] Dr. Ramses Dumas ALT [Catalytic activity/Vol] 103 U/L Critically high 14-59 [facility] Comment on above: Performed By: #### C MP #### [facility] [address] [place] [address] Dr. Ramses Dumas Anion gap [Moles/Vol] 6.6 mmol/L Normal [facility] Comment on above: Performed By: #### C MP #### [facility] [address] [place] [address] Dr. Ramses Dumas AST [Catalytic activity/Vol] 21 U/L Normal 15-37 [facility] Comment on above: Performed By: #### C MP #### [facility] [address] [place] [address] Dr. Ramses Dumas Bilirubin [Mass/Vol] 0.2 mg/dL Normal 0.2-1.0 [facility] Comment on above: Performed By: #### C MP #### [facility] [address] [place] [address] Dr. Ramses Dumas Calcium [Mass/Vol] 9.2 mg/dL Normal 8.5-10.1 [facility] Comment on above: Performed By: #### C MP #### [facility] [address] [address] [address] Ramses Dumas Chloride [Moles/Vol] 102 mmol/L Normal 98-107 [facility] Comment on above: Performed By: #### C MP #### [facility] [address] [address] [address] Ramses Dumas CO2 [Moles/Vol] 28.8 mmol/L Normal 21.0-32.0 [facility] Comment on above: Performed By: #### C MP #### [facility] [address] [place] [address] Dr. Ramses Dumas Creatinine [Mass/Vol] 0.92 mg/dL Normal 0.55-1.02 [facility] Comment on above: Performed By: #### C MP #### [facility] [address] [place] [address] Dr. Ramses Dumas EGFR-AF SUDANESE >60 Normal >=60 [facility] Comment on above: Performed By: #### C MP #### [facility] [address] [place] [address] Dr. Ramses Dumas EGFR-NON AF SUDANESE >60 Normal >=60 [facility] Comment on above: Performed By: #### C MP #### [facility] [address] [place] [address] Dr. Ramses Dumas Globulin (S) [Mass/Vol] 4.1 g/dL Normal [facility] Comment on above: Performed By: #### C MP #### [facility] [address] [address] [address] Ramses Dumas Glucose [Mass/Vol] 114 mg/dL Critically high 74-106 [facility] Comment on above: Performed By: #### C MP #### [facility] [address] [place] [address] Dr. Ramses Dumas Potassium [Moles/Vol] 3.4 mmol/L Critically low 3.5-5.1 [facility] Comment on above: Performed By: #### C MP #### [facility] [address] [address] [address] Ramses Dumas Protein [Mass/Vol] 7.4 g/dL Normal 6.4-8.2 [facility] Comment on above: Performed By: #### C MP #### [facility] [address] [address] [address] Ramses Dumas Sodium [Moles/Vol] 134 mmol/L Critically low 136-145 [facility] Comment on above: Performed By: #### C MP #### [facility] [address] [address] [address] Ramses Dumas Urea nitrogen [Mass/Vol] 11.0 mg/dL Normal 7.0-18.0 [facility] Comment on above: Performed By: #### C MP #### [facility] [address] [place] [address] Dr. Ramses Dumas Urea nitrogen/Creatinine [Mass ratio] 12.0 mg/mg Normal [facility] Comment on above: Performed By: #### C MP #### [facility] [address] [place] [address] Dr. Ramses Dumas URINE MICROSCOPIC ONLYon BACTERIA MODERATE Abnormal NONE SEEN [facility] Comment on above: Performed By: #### U KJ 24 #### [facility] [address] [place] [address] Dr. Ramses Dumas Bacteria identified Cx Nom (U) INDICATED Normal [facility] Comment on above: Performed By: #### U KJ 24 #### [facility] [address] [place] [address] Dr. Ramses Dumas CAST NONE SEEN Normal NONE SEEN [facility] Comment on above: Performed By: #### U KJ 24 #### [facility] [address] [place] [address] Dr. Ramses Dumas Crystals LM Nom (Urine sed) NONE SEEN Normal NONE SEEN [facility] Comment on above: Performed By: #### U KJ 24 #### [facility] [address] [place] [address] Dr. Ramses Dumas Epithelial cells LM Ql (Urine sed) RARE Normal NONE SEEN /RARE [facility] Comment on above: Performed By: #### U KJ 24 #### [facility] [address] [place] [address] Dr. Ramses Dumas MUCOUS NONE SEEN Normal NONE SEEN [facility] Comment on above: Performed By: #### U KJ 24 #### [facility] [address] [place] [address] Dr. Ramses Dumas RBC 20-50 Abnormal 0-2 [facility] Comment on above: Performed By: #### U KJ 24 #### [facility] [address] [place] [address] Dr. Ramses Dumas WBC 5-10 Abnormal NONE SEEN [facility] Comment on above: Performed By: #### U KJ 24 #### [facility] [address] [place] [address] Dr. Ramses Dumas CULTURE BLOODon 08-25-2022 Microscopic [...] F Tetracycline >=16 R F Normal [facility] Comment on above: Performed By: #### B LDCX2 #### [facility] [address] [place] [address] Dr. Ramses Dumas Microscopic examination of blood, [...] F Tetracycline >=16 R F Normal [facility] Comment on above: Performed By: #### C BC #### [facility] [address] [place] [address] Dr. Ramses Dumas CBC AUTO DIFFon 08-24-2022 BASO # 0.0 103/ul Normal 0.0-0.1 [facility] Comment on above: Performed By: #### C BC #### [facility] [address] [place] [address] Dr. Ramses Dumas Basophils/100 WBC (Bld) 0.1 % Critically low 0.2-2.0 [facility] Comment on above: Performed By: #### C BC #### [facility] [address] [place] [address] Dr. Ramses Dumas EO # 0.0 103/ul Normal 0.0-0.7 [facility] Comment on above: Performed By: #### C BC #### [facility] [address] [place] [address] Dr. Ramses Dumas Eosinophils/100 WBC (Bld) 0.0 % Critically low 0.9-7.0 [facility] Comment on above: Performed By: #### C BC #### [facility] [address] [place] [address] Dr. Ramses Dumas Erythrocyte distribution width (RBC) [Ratio] 13.5 % Normal 11.0-15.0 [facility] Comment on above: Performed By: #### C BC #### [facility] [address] [place] [address] Dr. Ramses Dumas Hematocrit (Bld) [Volume fraction] 33.0 % Critically low 36.0-48.0 [facility] Comment on above: Performed By: #### C BC #### [facility] [address] [address] [address] Ramses Dumas Hemoglobin (Bld) [Mass/Vol] 10.7 g/dL Critically low 12.0-16.0 [facility] Comment on above: Performed By: #### C BC #### [facility] [address] [address] [address] Ramses Dumas IG # 0.04 10e3/ul Critically high 0.00-0.03 [facility] Comment on above: Performed By: #### C BC #### [facility] [address] [place] [address] Dr. Ramses Dumas IG % 0.4 % Normal 0.0-0.5 [facility] Comment on above: Performed By: #### C BC #### [facility] [address] [place] [address] Dr. Ramses Dumas LYMPH # 0.8 103/ul Critically low 1.2-3.8 [facility] Comment on above: Performed By: #### C BC #### [facility] [address] [place] [address] Dr. Ramses Dumas Lymphocytes/100 WBC (Bld) 7.9 % Critically low 20.5-60.0 [facility] Comment on above: Performed By: #### C BC #### [facility] [address] [place] [address] Dr. Ramses Dumas MANUAL DIFF REQ NO Normal [facility] Comment on above: Performed By: #### C BC #### [facility] [address] [place] [address] Dr. Ramses Dumas MCH (RBC) [Entitic mass] 26.5 pg Critically low 26.7-34.0 [facility] Comment on above: Performed By: #### C BC #### [facility] [address] [place] [address] Dr. Ramses Dumas MCHC (RBC) [Mass/Vol] 32.4 g/dL Normal 29.9-35.2 [facility] Comment on above: Performed By: #### C BC #### [facility] [address] [place] [address] Dr. Ramses Dumas MCV (RBC) [Entitic vol] 81.7 fL Normal 81.0-99.0 [facility] Comment on above: Performed By: #### C BC #### [facility] [address] [place] [address] Dr. Ramses Dumas MONO # 0.6 103/ul Normal 0.3-0.8 [facility] Comment on above: Performed By: #### C BC #### [facility] [address] [place] [address] Dr. Ramses Dumas Monocytes/100 WBC (Bld) 6.3 % Normal 1.7-12.0 [facility] Comment on above: Performed By: #### C BC #### [facility] [address] [place] [address] Dr. Ramses Dumas NEUT # 8.6 103/ul Critically high 1.4-6.5 [facility] Comment on above: Performed By: #### C BC #### [facility] [address] [place] [address] Dr. Ramses Dumas Neutrophils/100 WBC (Bld) 85.3 % Critically high 43.0-75.0 [facility] Comment on above: Performed By: #### C BC #### [facility] [address] [place] [address] Dr. Ramses Dumas Platelet mean volume (Bld) [Entitic vol] 9.1 fL Critically low 9.5-13.5 [facility] Comment on above: Performed By: #### C BC #### [facility] [address] [place] [address] Dr. Ramses Dumas PLT 248 103/ul Normal 150-450 [facility] Comment on above: Performed By: #### C BC #### [facility] [address] [place] [address] Dr. Ramses Dumas RBC 4.04 106/ul Critically low 4.20-5.40 [facility] Comment on above: Performed By: #### C BC #### [facility] [address] [place] [address] Dr. Ramses Dumas WBC 10.1 103/ul Normal 4.0-11.0 [facility] Comment on above: Performed By: #### C BC #### [facility] [address] [place] [address] Dr. Ramses Dumas CULTURE URINEon 08-24-2022 CULTURE [...] S F Tetracycline >=16 R F Normal [facility] Comment on above: Performed By: #### U RCX #### [facility] [address] [place] [address] Dr. Ramses Dumas PROF 14(COMP METB)on 022 Albumin [Mass/Vol] 2.4 g/dL Critically low 3.4-5.0 [facility] Comment on above: Performed By: #### C VDTBH #### [facility] [address] [place] [address] Dr. Ramses Dumas Albumin/Globulin [Mass ratio] 0.7 {ratio} Normal [facility] Comment on above: Performed By: #### C VDTBH #### [facility] [address] [place] [address] Dr. Ramses Dumas ALP [Catalytic activity/Vol] 95 U/L Normal 46-116 [facility] Comment on above: Performed By: #### C VDTBH #### [facility] [address] [place] [address] Dr. Ramses Dumas ALT [Catalytic activity/Vol] 327 U/L Critically high 14-59 [facility] Comment on above: Performed By: #### C VDTBH #### [facility] [address] [place] [address] Dr. Ramses Dumas Anion gap [Moles/Vol] 8.7 mmol/L Normal [facility] Comment on above: Performed By: #### C VDTBH #### [facility] [address] [place] [address] Dr. Ramses Dumas AST [Catalytic activity/Vol] 165 U/L Critically high 15-37 [facility] Comment on above: Performed By: #### C VDTBH #### [facility] [address] [place] [address] Dr. Ramses Dumas Bilirubin [Mass/Vol] 0.4 mg/dL Normal 0.2-1.0 [facility] Comment on above: Performed By: #### C VDTBH #### [facility] [address] [place] [address] Dr. Ramses Dumas Calcium [Mass/Vol] 8.0 mg/dL Critically low 8.5-10.1 [facility] Comment on above: Performed By: #### C VDTBH #### [facility] [address] [place] [address] Dr. Ramses Dmuas Chloride [Moles/Vol] 108 mmol/L Critically high 98-107 [facility] Comment on above: Performed By: #### C VDTBH #### [facility] [address] [place] [address] Dr. Ramses Dumas CO2 [Moles/Vol] 25.3 mmol/L Normal 21.0-32.0 [facility] Comment on above: Performed By: #### C VDTBH #### [facility] [address] [place] [address] Dr. Ramses Dumas Creatinine [Mass/Vol] 0.70 mg/dL Normal 0.55-1.02 [facility] Comment on above: Performed By: #### C VDTBH #### [facility] [address] [place] [address] Dr. Ramses Dumas EGFR-AF SUDANESE >60 Normal >=60 [facility] Comment on above: Performed By: #### C VDTBH #### [facility] [address] [place] [address] Dr. Ramses Dumas EGFR-NON AF SUDANESE >60 Normal >=60 [facility] Comment on above: Performed By: #### C VDTBH #### [facility] [address] [place] [address] Dr. Ramses Dumas Globulin (S) [Mass/Vol] 3.6 g/dL Normal [facility] Comment on above: Performed By: #### C VDTBH #### [facility] [address] [place] [address] Dr. Ramses Dumas Glucose [Mass/Vol] 160 mg/dL Critically high 74-106 [facility] Comment on above: Performed By: #### C VDTBH #### [facility] [address] [place] [address] Dr. Ramses Dumas Potassium [Moles/Vol] 4.0 mmol/L Normal 3.5-5.1 [facility] Comment on above: Performed By: #### C VDTBH #### [facility] [address] [place] [address] Dr. Ramses Dumas Protein [Mass/Vol] 6.0 g/dL Critically low 6.4-8.2 [facility] Comment on above: Performed By: #### C VDTBH #### [facility] [address] [place] [address] Dr. Ramses Dumas Sodium [Moles/Vol] 138 mmol/L Normal 136-145 [facility] Comment on above: Performed By: #### C VDTBH #### [facility] [address] [place] [address] Dr. Ramses Dumas Urea nitrogen [Mass/Vol] 6.0 mg/dL Critically low 7.0-18.0 [facility] Comment on above: Performed By: #### C VDTBH #### [facility] [address] [place] [address] Dr. Ramses Dumas Urea nitrogen/Creatinine [Mass ratio] 8.6 mg/mg Normal [facility] Comment on above: Performed By: #### C VDTBH #### [facility] [address] [place] [address] Dr. Ramses Dumas CBC AUTO DIFFon 08-23-2022 BASO # 0.0 103/ul Normal 0.0-0.1 [facility] Comment on above: Performed By: #### U RCX #### [facility] [address] [place] [address] Dr. Ramses Dumas Basophils/100 WBC (Bld) 0.2 % Normal 0.2-2.0 [facility] Comment on above: Performed By: #### U RCX #### [facility] [address] [place] [address] Dr. Ramses Dumas EO # 0.0 103/ul Normal 0.0-0.7 [facility] Comment on above: Performed By: #### U RCX #### [facility] [address] [place] [address] Dr. Ramses Dumas Eosinophils/100 WBC (Bld) 0.1 % Critically low 0.9-7.0 [facility] Comment on above: Performed By: #### U RCX #### [facility] [address] [place] [address] Dr. Ramses Dumas Erythrocyte distribution width (RBC) [Ratio] 13.4 % Normal 11.0-15.0 [facility] Comment on above: Performed By: #### U RCX #### [facility] [address] [place] [address] Dr. Ramses Dumas Hematocrit (Bld) [Volume fraction] 34.1 % Critically low 36.0-48.0 [facility] Comment on above: Performed By: #### U RCX #### [facility] [address] [place] [address] Dr. Ramses Dumas Hemoglobin (Bld) [Mass/Vol] 10.9 g/dL Critically low 12.0-16.0 [facility] Comment on above: Performed By: #### U RCX #### [facility] [address] [place] [address] Dr. Ramses Dumas IG # 0.02 10e3/ul Normal 0.00-0.03 [facility] Comment on above: Performed By: #### U RCX #### [facility] [address] [address] [address] Ramses Dumas IG % 0.2 % Normal 0.0-0.5 [facility] Comment on above: Performed By: #### U RCX #### [facility] [address] [address] [address] Ramses Dumas LYMPH # 0.7 103/ul Critically low 1.2-3.8 [facility] Comment on above: Performed By: #### U RCX #### [facility] [address] [address] [address] Ramses Dumas Lymphocytes/100 WBC (Bld) 6.9 % Critically low 20.5-60.0 [facility] Comment on above: Performed By: #### U RCX #### [facility] [address] [address] [address] Ramses Dumas MANUAL DIFF REQ NO Normal [facility] Comment on above: Performed By: #### U RCX #### [facility] [address] [address] [address] Ramses Dumas MCH (RBC) [Entitic mass] 26.1 pg Critically low 26.7-34.0 [facility] Comment on above: Performed By: #### U RCX #### [facility] [address] [address] [address] Ramses Dumas MCHC (RBC) [Mass/Vol] 32.0 g/dL Normal 29.9-35.2 [facility] Comment on above: Performed By: #### U RCX #### [facility] [address] [address] [address] Ramses Dumas MCV (RBC) [Entitic vol] 81.8 fL Normal 81.0-99.0 [facility] Comment on above: Performed By: #### U RCX #### [facility] [address] [address] [address] Ramses Dumas MONO # 0.6 103/ul Normal 0.3-0.8 [facility] Comment on above: Performed By: #### U RCX #### [facility] [address] [address] [address] Ramses Dumas Monocytes/100 WBC (Bld) 5.9 % Normal 1.7-12.0 [facility] Comment on above: Performed By: #### U RCX #### [facility] [address] [address] [address] Ramses Dumas NEUT # 8.2 103/ul Critically high 1.4-6.5 [facility] Comment on above: Performed By: #### U RCX #### [facility] [address] [place] [address] Dr. Ramses Dumas Neutrophils/100 WBC (Bld) 86.7 % Critically high 43.0-75.0 [facility] Comment on above: Performed By: #### U RCX #### [facility] [address] [place] [address] Dr. Ramses Dumas Platelet mean volume (Bld) [Entitic vol] 9.4 fL Critically low 9.5-13.5 [facility] Comment on above: Performed By: #### U RCX #### [facility] [address] [place] [address] Dr. Ramses Dumas PLT 235 103/ul Normal 150-450 [facility] Comment on above: Performed By: #### U RCX #### [facility] [address] [place] [address] Dr. Ramses Dumas RBC 4.17 106/ul Critically low 4.20-5.40 [facility] Comment on above: Performed By: #### U RCX #### [facility] [address] [place] [address] Dr. Ramses Dumas WBC 9.5 103/ul Normal 4.0-11.0 [facility] Comment on above: Performed By: #### U RCX #### [facility] [address] [place] [address] Dr. Ramses Dumas PROF 14(COMP METB)on 022 Albumin [Mass/Vol] 2.6 g/dL Critically low 3.4-5.0 [facility] Comment on above: Performed By: #### U KJ 24 #### [facility] [address] [address] [address] Ramses Dumas Albumin/Globulin [Mass ratio] 0.8 {ratio} Normal [facility] Comment on above: Performed By: #### U KJ 24 #### [facility] [address] [address] [address] Ramses Dumas ALP [Catalytic activity/Vol] 82 U/L Normal 46-116 [facility] Comment on above: Performed By: #### U KJ 24 #### [facility] [address] [address] [address] Ramses Dumas ALT [Catalytic activity/Vol] 257 U/L Critically high 14-59 [facility] Comment on above: Performed By: #### U KJ 24 #### [facility] [address] [place] [address] Dr. Ramses Dumas Anion gap [Moles/Vol] 10.3 mmol/L Normal [facility] Comment on above: Performed By: #### U KJ 24 #### [facility] [address] [place] [address] Dr. Ramses Dumas AST [Catalytic activity/Vol] 196 U/L Critically high 15-37 [facility] Comment on above: Performed By: #### U KJ 24 #### [facility] [address] [place] [address] Dr. Ramses Dumas Bilirubin [Mass/Vol] 0.5 mg/dL Normal 0.2-1.0 [facility] Comment on above: Performed By: #### U KJ 24 #### [facility] [address] [place] [address] Dr. Ramses Dumas Calcium [Mass/Vol] 7.8 mg/dL Critically low 8.5-10.1 [facility] Comment on above: Performed By: #### U KJ 24 #### [facility] [address] [place] [address] Dr. Ramses Dumas Chloride [Moles/Vol] 104 mmol/L Normal 98-107 [facility] Comment on above: Performed By: #### U KJ 24 #### [facility] [address] [address] [address] Ramses Dumas CO2 [Moles/Vol] 24.4 mmol/L Normal 21.0-32.0 [facility] Comment on above: Performed By: #### U KJ 24 #### [facility] [address] [address] [address] Ramses Dumas Creatinine [Mass/Vol] 1.09 mg/dL Critically high 0.55-1.02 [facility] Comment on above: Performed By: #### U KJ 24 #### [facility] [address] [address] [address] Ramses Dumas EGFR-AF SUDANESE >60 Normal >=60 [facility] Comment on above: Performed By: #### U KJ 24 #### [facility] [address] [address] [address] Ramses Dumas EGFR-NON AF SUDANESE 59 mL/min/1.73m2 Critically low >=60 [facility] Comment on above: Performed By: #### U KJ 24 #### [facility] [address] [address] [address] Ramses Dumas Globulin (S) [Mass/Vol] 3.3 g/dL Normal [facility] Comment on above: Performed By: #### U KJ 24 #### [facility] [address] [address] [address] Ramses Dumas Glucose [Mass/Vol] 143 mg/dL Critically high 74-106 T [facility] Comment on above: Performed By: #### U KJ 24 #### [facility] [address] [address] [address] Ramses Dumas Potassium [Moles/Vol] 3.7 mmol/L Normal 3.5-5.1 [facility] Comment on above: Performed By: #### U KJ 24 #### [facility] [address] [address] [address] Ramses Dumas Protein [Mass/Vol] 5.9 g/dL Critically low 6.4-8.2 [facility] Comment on above: Performed By: #### U KJ 24 #### [facility] [address] [place] [address] Dr. Ramses Dumas Sodium [Moles/Vol] 135 mmol/L Critically low 136-145 [facility] Comment on above: Performed By: #### U KJ 24 #### [facility] [address] [place] [address] Dr. Ramses Dumas Urea nitrogen [Mass/Vol] 10.0 mg/dL Normal 7.0-18.0 [facility] Comment on above: Performed By: #### U KJ 24 #### [facility] [address] [place] [address] Dr. Ramses Dumas Urea nitrogen/Creatinine [Mass ratio] 9.2 mg/mg Normal [facility] Comment on above: Performed By: #### U KJ 24 #### [facility] [address] [place] [address] Dr. Ramses Dumas BLOOD CULTURE ID PANELon A. baumannii Not detected Normal NOT DETECTED [facility] Comment on above: Performed By: #### C VDTBH #### [facility] [address] [place] [address] Dr. Ramses Dumas Bacteriodes fragilis Not detected Normal NOT DETECTED [facility] Comment on above: Performed By: #### C VDTBH #### [facility] [address] [place] [address] Dr. Ramses Dumas BCID CONTROLS PASSED Normal [facility] Comment on above: Performed By: #### C VDTBH #### [facility] [address] [place] [address] Dr. Ramses Dumas BCIDBTHD BLOOD CULTURE BOTTLE INFORMATION Normal [facility] Comment on above: Performed By: #### C VDTBH #### [facility] [address] [place] [address] Dr. Ramses Dumas BCIDHD1 ANTIMICROBIAL RESISTANCE GENES Normal [facility] Comment on above: Performed By: #### C VDTBH #### [facility] [address] [place] [address] Dr. Ramses Dumas BCIDHD2 SEE BELOW [facility] Comment on above: Result Comment: Note : Antimicrobial resitance can occur via multiple mechanisms. A Not Detected result for the [employer] antomicrobial resistance gene assays does not indicate antimicrobial susceptibility. Subculturing is required for species identification and susceptibility testing of isolates. Performed By: #### C VDTBH #### [facility] [address] [place] [address] Dr. Ramses Dumas BCIDHD3 Positive Normal [facility] Comment on above: Performed By: #### C VDTBH #### [facility] [address] [place] [address] Dr. Ramses Dumas BCIDHD4 Negative Normal [facility] Comment on above: Performed By: #### C VDTBH #### [facility] [address] [place] [address] Dr. Ramses Dumas BCIDHD5 YEAST Normal [facility] Comment on above: Performed By: #### C VDTBH #### [facility] [address] [place] [address] Dr. Ramses Dumas Bottle Set: Set 1 Normal [facility] Comment on above: Performed By: #### C VDTBH #### [facility] [address] [place] [address] Dr. Ramses Dumas Bottle: Pediatric Normal [facility] Comment on above: Performed By: #### C VDTBH #### [facility] [address] [place] [address] Dr. Ramses Dumas C. neoformans/gattii Not detected Normal NOT DETECTED [facility] Comment on above: Performed By: #### C VDTBH #### [facility] [address] [place] [address] Dr. Ramses Dumas Kim albicans Not detected Normal NOT DETECTED [facility] Comment on above: Performed By: #### C VDTBH #### [facility] [address] [place] [address] Dr. Ramses Dumas Kim auris Not detected Normal NOT DETECTED The [facility] Comment on above: Performed By: #### C VDTBH #### [facility] [address] [place] [address] Dr. Ramses Dumas Kim glabrata Not detected Normal NOT DETECTED [facility] Comment on above: Performed By: #### C VDTBH #### [facility] [address] [address] [address] Ramses Dumas Kim Krusei Not detected Normal NOT DETECTED [facility] Comment on above: Performed By: #### C VDTBH #### [facility] [address] [place] [address] Dr. Ramses Dumas Kim Parapsilosis Not detected Normal NOT DETECTED [facility] Comment on above: Performed By: #### C VDTBH #### [facility] [address] [address] [address] Ramses Dumas Kim Tropicalis Not detected Normal NOT DETECTED [facility] Comment on above: Performed By: #### C VDTBH #### [facility] [address] [place] [address] Dr. Ramses Dumas CTX-M Resistant Gene Not Applicable Normal NOT DETECTE D [facility] Comment on above: Performed By: #### C VDTBH #### [facility] [address] [place] [address] Dr. Ramses Dumas E. Cloacae complex Not detected Normal NOT DETECTED [facility] Comment on above: Performed By: #### C VDTBH #### [facility] [address] [place] [address] Dr. Ramses Dumas E. faecalis Not detected Normal NOT DETECTED The [facility] Comment on above: Performed By: #### C VDTBH #### [facility] [address] [place] [address] Dr. Ramses Dumas E. faecium Not detected Normal NOT DETECTED [facility] Comment on above: Performed By: #### C VDTBH #### [facility] [address] [place] [address] Dr. Ramses Dumas Enterobacteriaceae Not detected Normal NOT DETECTED [facility] Comment on above: Performed By: #### C VDTBH #### [facility] [address] [place] [address] Dr. Ramses Dumas Escherichia coli Not detected Normal NOT DETECTED [facility] Comment on above: Performed By: #### C VDTBH #### [facility] [address] [place] [address] Dr. Ramses Dumas H. influenzae Not detected Normal NOT DETECTED [facility] Comment on above: Performed By: #### C VDTBH #### [facility] [address] [place] [address] Dr. Ramses Dumas IMP Resistant Gene Not Applicable Normal NOT DETECTED [facility] Comment on above: Performed By: #### C VDTBH #### [facility] [address] [place] [address] Dr. Ramses Dumas K. oxytoca Not detected Normal NOT DETECTED [facility] Comment on above: Performed By: #### C VDTBH #### [facility] [address] [place] [address] Dr. Ramses Dumas K. pneumoniae Not detected Normal NOT DETECTED [facility] Comment on above: Performed By: #### C VDTBH #### [facility] [address] [place] [address] Dr. Ramses Dumas Klebsiella aerogenes Not detected Normal NOT DETECTED [facility] Comment on above: Performed By: #### C VDTBH #### [facility] [address] [place] [address] Dr. Ramses Dumas KPC Resistant Gene Not detected Normal NOT DETECTED [facility] Comment on above: Performed By: #### C VDTBH #### [facility] [address] [place] [address] Dr. Ramses Dumas List. monocytogenes Not detected Normal NOT DETECTED [facility] Comment on above: Performed By: #### C VDTBH #### [facility] [address] [place] [address] Dr. Ramses Dumas Mcr-1 Resistant Gene Not Applicable Normal NOT DETECTE D [facility] Comment on above: Performed By: #### C VDTBH #### [facility] [address] [place] [address] Dr. Ramses Dumas mecA/C Not Applicable Normal NOT DETECTED [facility] Comment on above: Performed By: #### C VDTBH #### [facility] [address] [place] [address] Dr. Ramses Dumas mecA/C MREJ Not Applicable Normal NOT DETECTED [facility] Comment on above: Performed By: #### C VDTBH #### [facility] [address] [place] [address] Dr. Ramses Dumas N. meningitidis Not detected Normal NOT DETECTED [facility] Comment on above: Performed By: #### C VDTBH #### [facility] [address] [place] [address] Dr. Ramses Dumas NDM Resistant Gene Not Applicable Normal NOT DETECTED [facility] Comment on above: Performed By: #### C VDTBH #### [facility] [address] [place] [address] Dr. Ramses Dumas Oxa-48-like Not Applicable Normal NOT DETECTED [facility] Comment on above: Performed By: #### C VDTBH #### [facility] [address] [place] [address] Dr. Ramses Dumas Proteus Not detected Normal NOT DETECTED [facility] Comment on above: Performed By: #### C VDTBH #### [facility] [address] [place] [address] Dr. Ramses Dumas Pseud. aeruginosa Not detected Normal NOT DETECTED [facility] Comment on above: Performed By: #### C VDTBH #### [facility] [address] [place] [address] Dr. Ramses Dumas S. maltophilia Not detected Normal NOT DETECTED [facility] Comment on above: Performed By: #### C VDTBH #### [facility] [address] [place] [address] Dr. Ramses Dumas Salmonella Not detected Normal NOT DETECTED [facility] Comment on above: Performed By: #### C VDTBH #### [facility] [address] [place] [address] Dr. Ramses Dumas Seratia marcescens Not detected Normal NOT DETECTED [facility] Comment on above: Performed By: #### C VDTBH #### [facility] [address] [place] [address] Dr. Ramses Dumas Site: unknown/not given Normal [facility] Comment on above: Performed By: #### C VDTBH #### [facility] [address] [place] [address] Dr. Ramses Dumas Staph. aureus Not detected Normal NOT DETECTED [facility] Comment on above: Performed By: #### C VDTBH #### [facility] [address] [place] [address] Dr. Ramses Dumas Staph. epidermidis Not detected Normal NOT DETECTED [facility] Comment on above: Performed By: #### C VDTBH #### [facility] [address] [place] [address] Dr. Ramses Dumas Stapphillip. lugdunensis Not detected Normal NOT DETECTED [facility] Comment on above: Performed By: #### C VDTBH #### [facility] [address] [place] [address] Dr. Ramses Dumas Staphylococcus Not detected Normal NOT DETECTED [facility] Comment on above: Performed By: #### C VDTBH #### [facility] [address] [place] [address] Dr. Ramses Dumas Strep. agalactiae Detected Critically abnormal NOT DETECTED [facility] Comment on above: Performed By: #### C VDTBH #### [facility] [address] [place] [address] Dr. Ramses Dumas Strep. pneumoniae Not detected Normal NOT DETECTED [facility] Comment on above: Performed By: #### C VDTBH #### [facility] [address] [place] [address] Dr. Ramses Dumas Strep. pyogenes Not detected Normal NOT DETECTED [facility] Comment on above: Performed By: #### C VDTBH #### [facility] [address] [place] [address] Dr. Ramses Dumas Streptococcus Detected Critically abnormal NOT DETECTED [facility] Comment on above: Performed By: #### C VDTBH #### [facility] [address] [place] [address] Dr. Ramses Dumas Efrain/B Resist. Gene Not detected Normal NOT DETECTED [facility] Comment on above: Performed By: #### C VDTBH #### [facility] [address] [place] [address] Dr. Ramses Dumas VIM Resistant Gene Not Applicable Normal NOT DETECTED [facility] Comment on above: Performed By: #### C VDTBH #### [facility] [address] [place] [address] Dr. Ramses Dumas CBC AUTO DIFFon 08-22-2022 BASO # 0.1 103/ul Normal 0.0-0.1 [facility] Comment on above: Performed By: #### U KJ 24 #### [facility] [address] [place] [address] Dr. Ramses Dumas Basophils/100 WBC (Bld) 0.7 % Normal 0.2-2.0 [facility] Comment on above: Performed By: #### U KJ 24 #### [facility] [address] [place] [address] Dr. Ramses Dumas EO # 0.1 103/ul Normal 0.0-0.7 [facility] Comment on above: Performed By: #### U KJ 24 #### [facility] [address] [place] [address] Dr. Ramses Dumas Eosinophils/100 WBC (Bld) 1.7 % Normal 0.9-7.0 [facility] Comment on above: Performed By: #### U KJ 24 #### [facility] [address] [place] [address] Dr. Ramses Dumas Erythrocyte distribution width (RBC) [Ratio] 13.2 % Normal 11.0-15.0 [facility] Comment on above: Performed By: #### U KJ 24 #### [facility] [address] [place] [address] Dr. Ramses Dumas Hematocrit (Bld) [Volume fraction] 39.8 % Normal 36.0-48.0 [facility] Comment on above: Performed By: #### U KJ 24 #### [facility] [address] [place] [address] Dr. Ramses Dumas Hemoglobin (Bld) [Mass/Vol] 12.9 g/dL Normal 12.0-16.0 [facility] Comment on above: Performed By: #### U KJ 24 #### [facility] [address] [place] [address] Dr. Ramses Dumas IG # 0.02 10e3/ul Normal 0.00-0.03 [facility] Comment on above: Performed By: #### U KJ 24 #### [facility] [address] [place] [address] Dr. Ramses Dumas IG % 0.2 % Normal 0.0-0.5 [facility] Comment on above: Performed By: #### U KJ 24 #### [facility] [address] [place] [address] Dr. Ramses Dumas LYMPH # 3.2 103/ul Normal 1.2-3.8 [facility] Comment on above: Performed By: #### U KJ 24 #### [facility] [address] [place] [address] Dr. Ramses Dumas Lymphocytes/100 WBC (Bld) 40.0 % Normal 20.5-60.0 [facility] Comment on above: Performed By: #### U KJ 24 #### [facility] [address] [place] [address] Dr. Ramses Dumas MANUAL DIFF REQ NO Normal [facility] Comment on above: Performed By: #### U KJ 24 #### [facility] [address] [place] [address] Dr. Ramses Dumas MCH (RBC) [Entitic mass] 26.6 pg Critically low 26.7-34.0 [facility] Comment on above: Performed By: #### U KJ 24 #### [facility] [address] [place] [address] Dr. Ramses Dumas MCHC (RBC) [Mass/Vol] 32.4 g/dL Normal 29.9-35.2 [facility] Comment on above: Performed By: #### U KJ 24 #### [facility] [address] [place] [address] Dr. Ramses Dumas MCV (RBC) [Entitic vol] 82.1 fL Normal 81.0-99.0 [facility] Comment on above: Performed By: #### U KJ 24 #### [facility] [address] [place] [address] Dr. Ramses Dumas MONO # 0.6 103/ul Normal 0.3-0.8 [facility] Comment on above: Performed By: #### U KJ 24 #### [facility] [address] [place] [address] Dr. Ramses Dumas Monocytes/100 WBC (Bld) 7.5 % Normal 1.7-12.0 [facility] Comment on above: Performed By: #### U KJ 24 #### [facility] [address] [place] [address] Dr. Ramses Dumas NEUT # 4.0 103/ul Normal 1.4-6.5 [facility] Comment on above: Performed By: #### U KJ 24 #### [facility] [address] [place] [address] Dr. Ramses Dumas Neutrophils/100 WBC (Bld) 49.9 % Normal 43.0-75.0 [facility] Comment on above: Performed By: #### U KJ 24 #### [facility] [address] [place] [address] Dr. Ramses Dumas Platelet mean volume (Bld) [Entitic vol] 9.3 fL Critically low 9.5-13.5 [facility] Comment on above: Performed By: #### U KJ 24 #### [facility] [address] [place] [address] Dr. Ramses Dumas PLT 354 103/ul Normal 150-450 [facility] Comment on above: Performed By: #### U KJ 24 #### [facility] [address] [place] [address] Dr. Ramses Dumas RBC 4.85 106/ul Normal 4.20-5.40 [facility] Comment on above: Performed By: #### U KJ 24 #### [facility] [address] [place] [address] Dr. Ramses Dumas WBC 8.1 103/ul Normal 4.0-11.0 [facility] Comment on above: Performed By: #### U KJ 24 #### [facility] [address] [address] [address] ABD/PELVIS WO CONon [...] KESHIA IRIZARRY Date: 2022-08-22 07:04 Normal [facility] Covid-19 PCR (CVDTB)on SARS-CoV-2 (COVID-19) RNA FRANCESCA+probe Ql (Unsp spec) Not detected Normal NOT DETECTED [facility] Comment on above: Result [...] for this test is supported by the Government Documents Librarian of Health and Human Service's declaration that [...] used). Performed By: #### C MP #### [facility] [address] [place] [address] Dr. Ramses Dumas ER URINE PROFILEon 2 Bilirubin Ql (U) Negative Normal NEGATIVE [facility] Comment on above: Performed By: #### U RCX #### [facility] [address] [place] [address] Dr. Ramses Dumas Clarity (U) CLEAR Normal CLEAR [facility] Comment on above: Performed By: #### U RCX #### [facility] [address] [place] [address] Dr. Ramses Dumas Color (U) LT. YELLOW Normal YELLOW [facility] Comment on above: Performed By: #### U RCX #### [facility] [address] [place] [address] Dr. Ramses DELEON A micrscopic examination will be performed if indicated. Normal [facility] Comment on above: Performed By: #### U RCX #### [facility] [address] [place] [address] Dr. Ramses Dumas Glucose Ql (U) Negative Normal NEGATIVE [facility] Comment on above: Performed By: #### U RCX #### [facility] [address] [place] [address] Dr. Ramses Dumas Hemoglobin Ql (U) SMALL Abnormal NEGATIVE [facility] Comment on above: Performed By: #### U RCX #### [facility] [address] [place] [address] Dr. Ramses Dumas Ketones Ql (U) Negative Normal NEGATIVE [facility] Comment on above: Performed By: #### U RCX #### [facility] [address] [place] [address] Dr. Ramses Dumas LEUKOCYTES SMALL Abnormal NEGATIVE [facility] Comment on above: Performed By: #### U RCX #### [facility] [address] [place] [address] Dr. Ramses Dumas Nitrite Ql (U) Negative Normal NEGATIVE [facility] Comment on above: Performed By: #### U RCX #### [facility] [address] [place] [address] Dr. Ramses Dumas pH (U) 7.0 [pH] Normal 5-9 [facility] Comment on above: Performed By: #### U RCX #### [facility] [address] [place] [address] Dr. Ramses Dumas Protein (U) [Mass/Vol] 30 mg/dL Abnormal NEGATIVE/ TRACE [facility] Comment on above: Performed By: #### U RCX #### [facility] [address] [place] [address] Dr. Ramses Dumas SPEC GRAVITY 1.020 Normal 1.005-<=1.02 5 [facility] Comment on above: Performed By: #### U RCX #### [facility] [address] [place] [address] Dr. Ramses Dumas UR MICRO IND INDICATED Normal [facility] Comment on above: Performed By: #### U RCX #### [facility] [address] [place] [address] Dr. Ramses Dumas Urobilinogen Qn (U) 0.2 {Lucero'U}/dL Normal 0.2 - 1. 0 [facility] Comment on above: Performed By: #### U RCX #### [facility] [address] [place] [address] Dr. Ramses Dumas LACTATE/LACTIC ACIDon 2021 Lactate [Moles/Vol] 2.3 mmol/L Critically high 0.4-1.9 [facility] Comment on above: Performed By: #### U RCX #### [facility] [address] [place] [address] Dr. Ramses Dumas URon 08-22-2022 , QUAL Negative Normal NEGATIVE [facility] Comment on above: Performed By: #### U RCX #### [facility] [address] [address] [address] Ramses Dumas PROF 14(COMP METB)on 022 Albumin [Mass/Vol] 3.5 g/dL Normal 3.4-5.0 [facility] Comment on above: Performed By: #### U RCX #### [facility] [address] [place] [address] Dr. Ramses Dumas Albumin/Globulin [Mass ratio] 0.9 {ratio} Normal [facility] Comment on above: Performed By: #### U RCX #### [facility] [address] [place] [address] Dr. Ramses Dumas ALP [Catalytic activity/Vol] 92 U/L Normal 46-116 [facility] Comment on above: Performed By: #### U RCX #### [facility] [address] [place] [address] Dr. Ramses Dumas ALT [Catalytic activity/Vol] 139 U/L Critically high 14-59 [facility] Comment on above: Performed By: #### U RCX #### [facility] [address] [place] [address] Dr. Ramses Dumas Anion gap [Moles/Vol] 10.2 mmol/L Normal [facility] Comment on above: Performed By: #### U RCX #### [facility] [address] [place] [address] Dr. Ramses Dumas AST [Catalytic activity/Vol] 112 U/L Critically high 15-37 [facility] Comment on above: Performed By: #### U RCX #### [facility] [address] [place] [address] Dr. Ramses Dumas Bilirubin [Mass/Vol] 0.2 mg/dL Normal 0.2-1.0 [facility] Comment on above: Performed By: #### U RCX #### [facility] [address] [place] [address] Dr. Ramses Dumas Calcium [Mass/Vol] 8.8 mg/dL Normal 8.5-10.1 [facility] Comment on above: Performed By: #### U RCX #### [facility] [address] [address] [address] Ramses Dumas Chloride [Moles/Vol] 105 mmol/L Normal 98-107 [facility] Comment on above: Performed By: #### U RCX #### [facility] [address] [address] [address] Ramses Dumas CO2 [Moles/Vol] 26.3 mmol/L Normal 21.0-32.0 [facility] Comment on above: Performed By: #### U RCX #### [facility] [address] [place] [address] Dr. Ramses Dumas Creatinine [Mass/Vol] 0.95 mg/dL Normal 0.55-1.02 [facility] Comment on above: Performed By: #### U RCX #### [facility] [address] [place] [address] Dr. Ramses Dumas EGFR-AF SUDANESE >60 Normal >=60 [facility] Comment on above: Performed By: #### U RCX #### [facility] [address] [place] [address] Dr. Ramses Dumas EGFR-NON AF SUDANESE >60 Normal >=60 [facility] Comment on above: Performed By: #### U RCX #### [facility] [address] [place] [address] Dr. Ramses Dumas Globulin (S) [Mass/Vol] 3.9 g/dL Normal [facility] Comment on above: Performed By: #### U RCX #### [facility] [address] [place] [address] Dr. Ramses Dumas Glucose [Mass/Vol] 137 mg/dL Critically high 74-106 [facility] Comment on above: Performed By: #### U RCX #### [facility] [address] [place] [address] Dr. Ramses Dumas Potassium [Moles/Vol] 3.5 mmol/L Normal 3.5-5.1 [facility] Comment on above: Performed By: #### U RCX #### [facility] [address] [place] [address] Dr. Ramses Dumas Protein [Mass/Vol] 7.4 g/dL Normal 6.4-8.2 [facility] Comment on above: Performed By: #### U RCX #### [facility] [address] [place] [address] Dr. Ramses Dumas Sodium [Moles/Vol] 138 mmol/L Normal 136-145 [facility] Comment on above: Performed By: #### U RCX #### [facility] [address] [place] [address] Dr. Ramses Dumas Urea nitrogen [Mass/Vol] 11.0 mg/dL Normal 7.0-18.0 [facility] Comment on above: Performed By: #### U RCX #### [facility] [address] [place] [address] Dr. Ramses Dumas Urea nitrogen/Creatinine [Mass ratio] 11.6 mg/mg Normal [facility] Comment on above: Performed By: #### U RCX #### [facility] [address] [place] [address] Dr. Ramses Dumas URINE MICROSCOPIC ONLYon BACTERIA LARGE Abnormal NONE SEEN [facility] Comment on above: Performed By: #### U RCX #### [facility] [address] [place] [address] Dr. Ramses Dumas Bacteria identified Cx Nom (U) CX ALREADY ORDERED Normal [facility] Comment on above: Performed By: #### U RCX #### [facility] [address] [place] [address] Dr. Ramses Dumas CAST NONE SEEN Normal NONE SEEN [facility] Comment on above: Performed By: #### U RCX #### [facility] [address] [place] [address] Dr. Ramses Dumas Crystals LM Nom (Urine sed) NONE SEEN Normal NONE SEEN [facility] Comment on above: Performed By: #### U RCX #### [facility] [address] [place] [address] Dr. Ramses Dumas Epithelial cells LM Ql (Urine sed) MANY Abnormal NONE SEEN /RARE [facility] Comment on above: Performed By: #### U RCX #### [facility] [address] [place] [address] Dr. Ramses Dumas MUCOUS NONE SEEN Normal NONE SEEN [facility] Comment on above: Performed By: #### U RCX #### [facility] [address] [place] [address] Dr. Ramses Dumas RBC 5-10 Abnormal 0-2 [facility] Comment on above: Performed By: #### U RCX #### [facility] [address] [place] [address] Dr. Ramses Dumas WBC 50-75 Abnormal NONE SEEN [facility] Comment on above: Performed By: #### U RCX #### [facility] [address] [place] [address] Dr. Ramses Dumas CULTURE URINEon 08-15-2022 CULTURE [...] F Tetracycline >=16 R F Normal [facility] Comment on above: Performed By: #### U RCX #### [facility] [address] [place] [address] Dr. Ramses Dumas ACETAMINOPHENon 08-13-2022 Acetaminophen [Mass/Vol] ug/mL Critically low 10.0-30.0 [facility] Comment on above: Performed By: #### U RCX #### [facility] [address] [place] [address] Dr. Ramses Dumas CBC AUTO DIFFon 08-13-2022 BASO # 0.1 103/ul Normal 0.0-0.1 [facility] Comment on above: Performed By: #### C VDTBH #### [facility] [address] [place] [address] Dr. Ramses Dumas Basophils/100 WBC (Bld) 0.8 % Normal 0.2-2.0 [facility] Comment on above: Performed By: #### C VDTBH #### [facility] [address] [place] [address] Dr. Ramses Dumas EO # 0.1 103/ul Normal 0.0-0.7 [facility] Comment on above: Performed By: #### C VDTBH #### [facility] [address] [place] [address] Dr. Ramses Dumas Eosinophils/100 WBC (Bld) 1.6 % Normal 0.9-7.0 [facility] Comment on above: Performed By: #### C VDTBH #### [facility] [address] [place] [address] Dr. Ramses Dumas Erythrocyte distribution width (RBC) [Ratio] 13.3 % Normal 11.0-15.0 [facility] Comment on above: Performed By: #### C VDTBH #### [facility] [address] [place] [address] Dr. Ramses Dumas Hematocrit (Bld) [Volume fraction] 40.6 % Normal 36.0-48.0 [facility] Comment on above: Performed By: #### C VDTBH #### [facility] [address] [place] [address] Dr. Ramses Dumas Hemoglobin (Bld) [Mass/Vol] 13.2 g/dL Normal 12.0-16.0 [facility] Comment on above: Performed By: #### C VDTBH #### [facility] [address] [place] [address] Dr. Ramses Dumas IG # 0.01 10e3/ul Normal 0.00-0.03 [facility] Comment on above: Performed By: #### C VDTBH #### [facility] [address] [place] [address] Dr. Ramses Dumas IG % 0.2 % Normal 0.0-0.5 [facility] Comment on above: Performed By: #### C VDTBH #### [facility] [address] [place] [address] Dr. Ramses Dumas LYMPH # 2.4 103/ul Normal 1.2-3.8 [facility] Comment on above: Performed By: #### C VDTBH #### [facility] [address] [place] [address] Dr. Ramses Dumas Lymphocytes/100 WBC (Bld) 37.7 % Normal 20.5-60.0 [facility] Comment on above: Performed By: #### C VDTBH #### [facility] [address] [place] [address] Dr. Ramses Dumas MANUAL DIFF REQ NO Normal [facility] Comment on above: Performed By: #### C VDTBH #### [facility] [address] [place] [address] Dr. Ramses Dumas MCH (RBC) [Entitic mass] 26.7 pg Normal 26.7-34.0 [facility] Comment on above: Performed By: #### C VDTBH #### [facility] [address] [place] [address] Dr. Ramses Dumas MCHC (RBC) [Mass/Vol] 32.5 g/dL Normal 29.9-35.2 [facility] Comment on above: Performed By: #### C VDTBH #### [facility] [address] [place] [address] Dr. Ramses Dumas MCV (RBC) [Entitic vol] 82.0 fL Normal 81.0-99.0 [facility] Comment on above: Performed By: #### C VDTBH #### [facility] [address] [place] [address] Dr. Ramses Dumas MONO # 0.6 103/ul Normal 0.3-0.8 [facility] Comment on above: Performed By: #### C VDTBH #### [facility] [address] [place] [address] Dr. Ramses Dumas Monocytes/100 WBC (Bld) 8.6 % Normal 1.7-12.0 [facility] Comment on above: Performed By: #### C VDTBH #### [facility] [address] [place] [address] Dr. Ramses Dumas NEUT # 3.3 103/ul Normal 1.4-6.5 [facility] Comment on above: Performed By: #### C VDTBH #### [facility] [address] [place] [address] Dr. Ramses Dumas Neutrophils/100 WBC (Bld) 51.1 % Normal 43.0-75.0 [facility] Comment on above: Performed By: #### C VDTBH #### [facility] [address] [place] [address] Dr. Ramses Dumas Platelet mean volume (Bld) [Entitic vol] 8.7 fL Critically low 9.5-13.5 [facility] Comment on above: Performed By: #### C VDTBH #### [facility] [address] [place] [address] Dr. Ramses Dumas PLT 409 103/ul Normal 150-450 [facility] Comment on above: Performed By: #### C VDTBH #### [facility] [address] [place] [address] Dr. Ramses Dumas RBC 4.95 106/ul Normal 4.20-5.40 [facility] Comment on above: Performed By: #### C VDTBH #### [facility] [address] [place] [address] Dr. Ramses Dumas WBC 6.4 103/ul Normal 4.0-11.0 [facility] Comment on above: Performed By: #### C VDTBH #### [facility] [address] [place] [address] Dr. Ramses Dumas Covid-19 PCR ([facility])on 07-20 SARS-CoV-2 (COVID-19) RNA FRANCESCA+probe Ql (Unsp spec) Not detected Normal NOT DETECTED [facility] Comment on above: Result [...] for this test is supported by the [place] of Health and Human Service's declaration that [...] used). Performed By: #### C VDTB #### [facility] [address] [place] [address] Dr. Ramses Dumas DRUG SCREEN RAPID (URINE)on 08-13-2022 AMP Negative Normal NEGATIVE [facility] Comment on above: Performed By: #### C BC #### [facility] [address] [place] [address] Dr. Rasmes Dumas BAR Negative Normal NEGATIVE [facility] Comment on above: Performed By: #### C BC #### [facility] [address] [place] [address] Dr. Ramses Dumas BUP Negative Normal NEGATIVE [facility] Comment on above: Performed By: #### C BC #### [facility] [address] [place] [address] Dr. Ramses Dumas BZO Negative Normal NEGATIVE [facility] Comment on above: Performed By: #### C BC #### [facility] [address] [place] [address] Dr. Ramses Dumas ODILIA Negative Normal NEGATIVE [facility] Comment on above: Performed By: #### C BC #### [facility] [address] [place] [address] Dr. Ramses Dumas CUT-OFFS SEE BELOW Normal [facility] Comment on above: Result Comment: AMP (Amphetamine): 500ng/mL, BAR (Barbituates): 200 ng/mL, BZO (Benzodiazepines): 150 ng/mL, BUP (Buprenorphine): 10 ng/mL, ODILIA (Cocaine): 150 ng/mL, mAMP (Methamphetamine): 500 ng/mL, MTD (Methadone): 200 ng/mL, OPI (Opiates): 100 ng/mL, OXY (Oxycodone): 100 ng/mL, PCP (Phencyclidine): 25 ng/mL, PPX (Propoxyphene): 300 ng/mL, THC (Cannabinoids): 50 ng/mL, TCA (Trycyclic Antidepressants): 300 ng/mL Performed By: #### C BC #### [facility] [address] [place] [address] Dr. Ramses Dumas DRUG CUT HEADER DRUG CLASS TEST SYSTEM CUT-OFF CONCENTRATIONS ARE FOLLOWS: Normal [facility] Comment on above: Performed By: #### C BC #### [facility] [address] [place] [address] Dr. Ramses Dumas mAMP Negative Normal NEGATIVE [facility] Comment on above: Performed By: #### C BC #### [facility] [address] [place] [address] Dr. Ramses Dumas MTD Negative Normal NEGATIVE [facility] Comment on above: Performed By: #### C BC #### [facility] [address] [place] [address] Dr. Ramses Dumas OPI Negative Normal NEGATIVE [facility] Comment on above: Performed By: #### C BC #### [facility] [address] [place] [address] Dr. Ramses Dumas OXY Negative Normal NEGATIVE [facility] Comment on above: Performed By: #### C BC #### [facility] [address] [place] [address] Dr. Ramses Dumas PCP Negative Normal NEGATIVE [facility] Comment on above: Performed By: #### C BC #### [facility] [address] [place] [address] Dr. Ramses Dumas PPX Negative Normal NEGATIVE [facility] Comment on above: Performed By: #### C BC #### [facility] [address] [place] [address] Dr. Ramses Dumas TCA Negative Normal NEGATIVE [facility] Comment on above: Performed By: #### C BC #### [facility] [address] [address] [address] Ramses Dumas THC Negative Normal NEGATIVE [facility] Comment on above: Performed By: #### C BC #### [facility] [address] [place] [address] Dr. Ramses Dumas ER URINE PROFILEon 2 Bilirubin Ql (U) Negative Normal NEGATIVE [facility] Comment on above: Performed By: #### C BC #### [facility] [address] [address] [address] Ramses Dumas Clarity (U) CLEAR Normal CLEAR [facility] Comment on above: Performed By: #### C BC #### [facility] [address] [place] [address] Dr. Ramses Dumas Color (U) LT. YELLOW Normal YELLOW [facility] Comment on above: Performed By: #### C BC #### [facility] [address] [place] [address] Dr. Ramses Dumas ERUCARLOS ENRIQUE A micrscopic examination will be performed if indicated. Normal [facility] Comment on above: Performed By: #### C BC #### [facility] [address] [place] [address] Dr. Ramses Dumas Glucose Ql (U) Negative Normal NEGATIVE [facility] Comment on above: Performed By: #### C BC #### [facility] [address] [address] [address] Ramses Dumas Hemoglobin Ql (U) LARGE Abnormal NEGATIVE [facility] Comment on above: Performed By: #### C BC #### [facility] [address] [address] [address] Ramses Dumas Ketones Ql (U) Negative Normal NEGATIVE [facility] Comment on above: Performed By: #### C BC #### [facility] [address] [place] [address] Dr. Ramses Dumas LEUKOCYTES LARGE Abnormal NEGATIVE [facility] Comment on above: Performed By: #### C BC #### [facility] [address] [place] [address] Dr. Ramses Dumas Nitrite Ql (U) Positive Abnormal NEGATIVE [facility] Comment on above: Performed By: #### C BC #### [facility] [address] [place] [address] Dr. Ramses Dumas pH (U) 6.0 [pH] Normal 5-9 [facility] Comment on above: Performed By: #### C BC #### [facility] [address] [place] [address] Dr. Ramses Dumas Protein (U) [Mass/Vol] 30 mg/dL Abnormal NEGATIVE/ TRACE [facility] Comment on above: Performed By: #### C BC #### [facility] [address] [place] [address] Dr. Ramses Dumas SPEC GRAVITY >=1.030 Abnormal 1.005-<=1.02 5 [facility] Comment on above: Performed By: #### C BC #### [facility] [address] [place] [address] Dr. Ramses Dumas UR MICRO IND INDICATED Normal [facility] Comment on above: Performed By: #### C BC #### [facility] [address] [place] [address] Dr. Ramses Dumas Urobilinogen Qn (U) 0.2 {Lucero'U}/dL Normal 0.2 - 1. 0 [facility] Comment on above: Performed By: #### C BC #### [facility] [address] [place] [address] Dr. Ramses Dumas ETHANOL (BLD ALC)on 08-13-20 ALC NOTE NOTE: 80 mg/dl is th e legal limit for a blood alcohol level Normal [facility] Comment on above: Performed By: #### B LDCX2 #### [facility] [address] [place] [address] Dr. Ramses Dumas Ethanol [Mass/Vol] mg/dL Normal [facility] Comment on above: Performed By: #### B LDCX2 #### [facility] [address] [place] [address] Dr. Ramses Dumas URon 08-13-2022 , QUAL Negative Normal NEGATIVE [facility] Comment on above: Performed By: #### C BC #### [facility] [address] [place] [address] Dr. Ramses Dumas PROF 14(COMP METB)on 022 Albumin [Mass/Vol] 3.8 g/dL Normal 3.4-5.0 [facility] Comment on above: Performed By: #### U RCX #### [facility] [address] [place] [address] Dr. Ramses Dumas Albumin/Globulin [Mass ratio] 0.9 {ratio} Normal [facility] Comment on above: Performed By: #### U RCX #### [facility] [address] [place] [address] Dr. Ramses Dumas ALP [Catalytic activity/Vol] 82 U/L Normal 46-116 [facility] Comment on above: Performed By: #### U RCX #### [facility] [address] [place] [address] Dr. Ramses Dumas ALT [Catalytic activity/Vol] 41 U/L Normal 14-59 [facility] Comment on above: Performed By: #### U RCX #### [facility] [address] [place] [address] Dr. Ramses Dumas Anion gap [Moles/Vol] 9.3 mmol/L Normal [facility] Comment on above: Performed By: #### U RCX #### [facility] [address] [place] [address] Dr. Ramses Dumas AST [Catalytic activity/Vol] 21 U/L Normal 15-37 [facility] Comment on above: Performed By: #### U RCX #### [facility] [address] [place] [address] Dr. Ramses Dumas Bilirubin [Mass/Vol] 0.3 mg/dL Normal 0.2-1.0 [facility] Comment on above: Performed By: #### U RCX #### [facility] [address] [place] [address] Dr. Ramses Dumas Calcium [Mass/Vol] 8.9 mg/dL Normal 8.5-10.1 [facility] Comment on above: Performed By: #### U RCX #### [facility] [address] [place] [address] Dr. Ramses Dumas Chloride [Moles/Vol] 105 mmol/L Normal 98-107 [facility] Comment on above: Performed By: #### U RCX #### [facility] [address] [address] [address] Ramses Dumas CO2 [Moles/Vol] 28.5 mmol/L Normal 21.0-32.0 [facility] Comment on above: Performed By: #### U RCX #### [facility] [address] [place] [address] Dr. Ramses Dumas Creatinine [Mass/Vol] 0.81 mg/dL Normal 0.55-1.02 [facility] Comment on above: Performed By: #### U RCX #### [facility] [address] [place] [address] Dr. Ramses Dumas EGFR-AF SUDANESE >60 Normal >=60 [facility] Comment on above: Performed By: #### U RCX #### [facility] [address] [place] [address] Dr. Ramses Dumas EGFR-NON AF SUDANESE >60 Normal >=60 [facility] Comment on above: Performed By: #### U RCX #### [facility] [address] [place] [address] Dr. Ramses Dumas Globulin (S) [Mass/Vol] 4.1 g/dL Normal [facility] Comment on above: Performed By: #### U RCX #### [facility] [address] [address] [address] Ramses Dumas Glucose [Mass/Vol] 100 mg/dL Normal 74-106 [facility] Comment on above: Performed By: #### U RCX #### [facility] [address] [place] [address] Dr. Ramses Dumas Potassium [Moles/Vol] 3.8 mmol/L Normal 3.5-5.1 [facility] Comment on above: Performed By: #### U RCX #### [facility] [address] [address] [address] Ramses Dumas Protein [Mass/Vol] 7.9 g/dL Normal 6.4-8.2 [facility] Comment on above: Performed By: #### U RCX #### [facility] [address] [address] [address] Ramses Dumas Sodium [Moles/Vol] 139 mmol/L Normal 136-145 [facility] Comment on above: Performed By: #### U RCX #### [facility] [address] [address] [address] Ramses Dumas Urea nitrogen [Mass/Vol] 10.0 mg/dL Normal 7.0-18.0 [facility] Comment on above: Performed By: #### U RCX #### [facility] [address] [address] [address] Ramses Dumas Urea nitrogen/Creatinine [Mass ratio] 12.3 mg/mg Normal [facility] Comment on above: Performed By: #### U RCX #### [facility] [address] [address] [address] Ramses Dumas SALICYLATEon 08-13-2022 SALICYLATE <2.8 Normal <=19.9 [facility] Comment on above: Performed By: #### U RCX #### [facility] [address] [address] [address] Ramses Dumas URINE MICROSCOPIC ONLYon BACTERIA LARGE Abnormal NONE SEEN [facility] Comment on above: Performed By: #### C BC #### [facility] [address] [address] [address] Ramses Dumas Bacteria identified Cx Nom (U) INDICATED Normal [facility] Comment on above: Performed By: #### C BC #### [facility] [address] [address] [address] Ramses Dumas CA OX CRYSTALS RARE Normal [facility] Comment on above: Performed By: #### C BC #### [facility] [address] [place] [address] Dr. Ramses Dumas CAST NONE SEEN Normal NONE SEEN [facility] Comment on above: Performed By: #### C BC #### [facility] [address] [place] [address] Dr. Ramses Dumas Crystals LM Nom (Urine sed) SEEN Abnormal NONE SEEN [facility] Comment on above: Performed By: #### C BC #### [facility] [address] [place] [address] Dr. Ramses Dumas Epithelial cells LM Ql (Urine sed) MODERATE Abnormal NONE SEEN /RARE [facility] Comment on above: Performed By: #### C BC #### [facility] [address] [place] [address] Dr. Ramses Dumas MUCOUS NONE SEEN Normal NONE SEEN [facility] Comment on above: Performed By: #### C BC #### [facility] [address] [place] [address] Dr. Ramses Dumas RBC 10-20 Abnormal 0-2 [facility] Comment on above: Performed By: #### C BC #### [facility] [address] [place] [address] Dr. Ramses Dumas WBC 20-50 Abnormal NONE SEEN [facility] Comment on above: Performed By: #### C BC #### [facility] [address] [place] [address] Dr. Ramses Dumas Pap IG,rfx Aptima HPV all pt hon 08-09-2022 . . Normal [facility] Comment on above: Performed By: #### C MP #### [facility] [address] [place] [address] Dr. Ramses Dumas DIAGNOSIS: Comment Abnormal [facility] Comment on above: Result Comment: EPIT HELIAL CELL ABNORMALITY. LOW GRADE SQUAMOUS INTRAEPITHELIAL LESION (LSIL). Performed By: #### C MP #### [facility] [address] [place] [address] Dr. Ramses Dumas Electronically signed by: Comment Normal [facility] Comment on above: Result Comment: Arnaud Joseph MD, Pathologist Performed By: #### C MP #### [facility] [address] [address] [address] Ramses Dumas HPV Aptima Negative Normal Negative [facility] Comment on above: Result Comment: This nucleic acid amplification test detects fourteen high-risk HPV types (16,18,31,33,35,39,45,51,52,56,58,59,66,68) without differentiation. Performed By: #### C MP #### [facility] [address] [address] [address] Ramses Dumas Methodology: Comment Normal [facility] Comment on above: Result Comment: This liquid based ThinPrep(R) pap test was screened with the use of an image guided system. Performed By: #### C MP #### [facility] [address] [place] [address] Dr. Ramses Dumas Note: Comment Normal [facility] Comment on above: Result Comment: The Pap smear is a screening test designed to aid in the detection of premalignant and malignant conditions of the uterine cervix. It is not a diagnostic procedure and should not be used as the sole means of detecting cervical cancer. Both false-positive and false-negative reports do occur. . Performed By: #### C MP #### [facility] [address] [place] [address] Dr. Ramses Dumas Pathologist Provided ICD10 Comment Normal [facility] Comment on above: Result Comment: [id number]. [id number] Performed By: #### C MP #### [facility] [address] [place] [address] Dr. Ramses Dumas Performed by: Comment Normal [facility] Comment on above: Result Comment: Gail Ruano, Bilingual Sales Representative (ASCP) Performed By: #### C MP #### [facility] [address] [place], [place] [id number] Dr. Ramses Dumas Reflex Criteria: Comment Normal [facility] Comment on above: Result Comment: See below for HPV testing results. . Performed By: #### C MP #### [facility] [address] [place], [place] [id number] Dr. Ramses Dumas Specimen adequacy: Comment Normal [facility] Comment on above: Result Comment: Sati sfactory for evaluation. Endocervical and/or squamous metaplastic cells (endocervical component) are present. Performed By: #### C MP #### [facility] [address] [place] [address] Dr. Ramses Dumas Vital Signs Date Time Vital Sign Value Performing Clinician Facility 04-05-2025 13:06-0400 Body mass index (BMI) [Ratio] 29.86 kg/m2 [facility] [employer] Work Phone: [facility] 04-05-2025 13:06-0400 Body weight 83.92 kg [facility] Work Phone: [facility] 04-05-2025 13:06-0400 Diastolic blood pressure 72 mm[Hg] [facility] Work Phone: [facility] 04-05-2025 13:06-0400 Systolic blood pressure 124 mm[Hg] [facility] Work Phone: [facility] 01-29-2025 09:23-0400 Body temperature 98.1 [degF] Luis Felipe Delacruz MD [facility] Phone: [facility] [employer] 01-29-2025 09:23-0400 Diastolic blood pressure 86 mm[Hg] Luis Felipe Delacruz MD Work Phone: [facility] 01-29-2025 09:23-0400 Heart rate 81 /min Luis Felipe Delacruz MD Work Phone: [facility] 01-29-2025 09:23-0400 Respiratory rate 18 /min Luis Felipe Delacruz MD Work Phone: [facility] [employer] 01-29-2025 09:23-0400 SaO2% (BldA) [Mass fraction] 100 % Luis Felipe Delacruz MD Work Phone: [facility] 01-29-2025 09:23-0400 Systolic blood pressure 129 mm[Hg] Luis Felipe Delacruz MD Work Phone: [facility] [employer] 01-29-2025 06:00-0400 Body mass index (BMI) [Ratio] 29.01 kg/m2 Luis Felipe Delacruz MD Work Phone: [facility] [employer] 01-29-2025 06:00-0400 Body weight 81.5 kg Luis Felipe Delacruz MD Work Phone: [facility] [employer] 01-27-2025 10:01-0400 Body height 167.6 cm Luis Felipe Delacruz MD Work Phone: [facility] [employer] 01-22-2025 11:49-0400 Body temperature 97.7 [degF] Luis Felipe Delacruz MD Work Phone: [facility] [employer] 01-22-2025 11:49-0400 Diastolic blood pressure 75 mm[Hg] Luis Felipe Delacruz MD Work Phone: [facility] [employer] 01-22-2025 11:49-0400 Heart rate 54 /min Luis Felipe Delacruz MD Work Phone: [facility] [employer] 01-22-2025 11:49-0400 Respiratory rate 15 /min Luis Felipe Delacruz MD Work Phone: [facility] [employer] 01-22-2025 11:49-0400 SaO2% (BldA) [Mass fraction] 98 % Luis Felipe Delacruz MD Work Phone: [facility] [employer] 01-22-2025 11:49-0400 Systolic blood pressure 108 mm[Hg] Luis Felipe Delacruz MD Work Phone: [facility] [employer] 01-21-2025 23:45-0400 Body height 167.6 cm Luis Felipe Delacruz MD Work Phone: [facility] [employer] 01-21-2025 23:45-0400 Body mass index (BMI) [Ratio] 28.23 kg/m2 Luis Felipe Delacruz MD Work Phone: [facility] [employer] 01-21-2025 23:45-0400 Body weight 79.3 kg Luis Felipe Delacruz MD Work Phone: [facility] [employer] 04-10-2024 07:30-0400 Body temperature 98 [degF] MD Domingo Snyder Work Phone: [facility] 04-10-2024 07:30-0400 Diastolic blood pressure 73 mm[Hg] MD Domingo Snyder Work Phone: [facility] 04-10-2024 07:30-0400 Heart rate 75 /min MD Domingo Snyder Work Phone: [facility] 04-10-2024 07:30-0400 Respiratory rate 16 /min MD Domingo Snyder Work Phone: [facility] 04-10-2024 07:30-0400 SaO2% (BldA) [Mass fraction] 100 % MD Domingo Snyder Work Phone: [facility] 04-10-2024 07:30-0400 Systolic blood pressure 123 mm[Hg] MD Domingo Snyder Work Phone: [facility] 04-08-2024 22:44-0400 Body height 167.64 cm MD Domingo Snyder Work Phone: [facility] 04-08-2024 22:44-0400 Body weight 86.58 kg MD Domingo Snyder Work Phone: [facility] 03-20-2023 10:30-0400 Blood Pressure Location Nona RAYGOZA [facility] 03-20-2023 10:30-0400 Diastolic blood pressure 73 mm[Hg] Nona RAYGOZA [facility] 03-20-2023 10:30-0400 Heart rate 80 /min Nona RAYGOZA [facility] 03-20-2023 10:30-0400 Respiratory rate 16 /min Nona RAYGOZA [facility] 03-20-2023 10:30-0400 Systolic blood pressure 128 mm[Hg] Nona RAYGOZA [facility] Encounters Encounter Date Encounter Type Care Provider [...] Start: 05-05-2025 End: 05-05-2025 ambulatory Vj Fraire [facility] Work Phone: Start: 05-05-2025 End: 05-05-2025 Departed Referred Vj Fraire DO -[facility] Start: 04-24-2025 End: 04-24-2025 Bamboo steven Leiva MD Work Phone: [facility] Start: 04-24-2025 End: 04-24-2025 Bamboo steven Leiva MD Work Phone: [facility] Start: 04-24-2025 End: 04-24-2025 Postop follow up visit related to original px Patrick Leiva MD Work Phone: [facility] Comment on above: Encounter for [...] Start: 03-16-2025 End: 03-16-2025 ambulatory Adonis Guerra Facility:[facility] Start: 01-26-2025 End: 01-29-2025 Evaluation and management of inpatient Luis Felipe Delacruz MD Work Phone: [facility] Renal//Med Surg Comment on above: Bilateral ureteral c alculi; Acute postoperative pain Start: 01-26-2025 Emergency department patient visit DOMINGO RICHYane Facility:[facility] Start: 01-21-2025 End: 01-22-2025 Evaluation and management of inpatient Luis Felipe Delacruz MD Work Phone: [facility] 3C MED SURG Comment on above: Acute postoperative pain (Primary Dx); Renal calculus, left Start: 01-21-2025 End: 01-21-2025 ambulatory Domingo Snyder MD Work Phone: [facility] Work Phone: Start: 01-21-2025 End: 01-21-2025 Departed Referred Domingo Snyder MD Work Phone: [facility] Start: 01-17-2025 End: 01-19-2025 ambulatory DOMINGO SNYDER [facility] Start: 01-17-2025 End: 01-19-2025 Subsequent hospital visit by physician Octavio Shi Rn [facility] Special Procedures Comment on above: Arrived VUR (vesicoureteric reflux) Start: 01-05-2025 End: 01-07-2025 [facility] Start: 12-02-2024 End: 12-02-2024 ambulatory Domingo Snyder MD Work Phone: [facility] Work Phone: Start: 12-02-2024 End: 12-02-2024 Departed Referred Domingo Snyder MD Work Phone: [facility] Start: 06-16-2024 End: 10-03-2024 ambulatory [place] Start: 04-09-2024 Non-patient / Non-visit MD Vicente Snyder Work Phone: [facility] Work Phone: Start: 04-08-2024 End: 04-10-2024 Evaluation and management of inpatient MD Domingo Snyder Work Phone: [facility] Work Phone: Start: 12-04-2023 End: 12-05-2023 ambulatory Nona RAYGOZA Facility:[facility] Start: 12-04-2023 End: 12-04-2023 Patient encounter procedure Nona RAYGOZA [facility] Start: 04-10-2023 End: 04-10-2023 Patient encounter status Jefferson Gibbs DO Work Phone: [facility] Start: 04-09-2023 End: 04-10-2023 ambulatory Nona RAYGOZA Facility:CD:[id number] Start: 03-20-2023 End: 03-21-2023 ambulatory Nona RAYGOZA Facility:[facility] Start: 03-20-2023 End: 03-20-2023 Patient encounter procedure Nona RAYGOZA [facility] Start: 02-16-2023 End: 02-16-[address] DOMINGO SNYDER . Facility:[facility] Start: 02-02-2023 End: 02-02-[address] DOMINGO SNYDER . Facility:[facility] Start: 12-26-2022 End: 12-27-2022 ambulatory Nona RAYGOZA Facility:[facility] Start: 12-26-2022 End: 12-26-2022 Patient encounter procedure Nona RAYGOZA [facility] Start: 12-16-2022 End: 12-17-[address] NONA RAYGOZA . Facility:[facility] Start: 12-15-2022 End: 12-16-[address] NONA RAYGOZA . Facility:[facility] Start: 11-27-[address] DOMINGO SNYDER . Facili ty:[facility] Start: 11-07-2022 End: 11-07-[address] DOMINGO SNYDER . Facility:[facility] Start: 11-04-2022 Encounter for preprocedural cardiovascular examination DR JEFFERSON GIBBS . [facility] Start: 11-04-2022 Encounter for preprocedural laboratory examination DR JEFFERSON GIBBS . [facility] Start: 11-03-2022 End: 11-04-2022 Encounter for preprocedural cardiovascular examination DR DOMINGO SNYDER . Facility:[facility] Start: 11-03-2022 End: 11-04-[address] DOMINGO SNYDER . Facility:[facility] Start: 09-20-2022 Encounter for preprocedural laboratory examination DR NONA RAYGOZA . [facility] Start: 09-18-2022 End: 09-18-[address] NONA RAYGOZA . Facility:[facility] Start: 09-16-2022 End: 09-17-[address] NONA RAYGOZA . Facility:[facility] Start: 09-16-2022 End: 09-17-2022 Encounter for preprocedural laboratory examination DR NONA RAYGOZA . Facility:[facility] Start: 09-05-2022 End: 09-05-2022 ambulatory ORA BOND . Facility:[facility] Start: 09-04-2022 End: 09-04-2022 ambulatory DANIEL MONTGOMERY Facility:[facility] Start: 09-04-2022 End: 09-04-2022 ambulatory Daniel Montgomery STOCK REPAIRER.PARTS REMOVER Work Phone: Urology Comment on above: NO SHOW (Primary Dx) Start: 09-04-2022 End: 09-04-2022 Telemedicine consultation with patient Daniel Montgomery STOCK REPAIRER.PARTS REMOVER Work Phone: [facility] Start: 08-28-2022 End: 08-29-[address] ERWIN MOORE Facility:[facility] Start: 08-22-2022 End: 08-24-[address] DOMINGO SNYDER . Facility:[facility] Start: 08-13-2022 End: 08-13-2022 ambulatory ORA BOND . Facility:[facility] Start: 07-31-2022 Encounter for cervic al smear to confirm findings of recent normal smear following initial abnormal smear DR JEFFERSON GIBBS . [facility] Start: 07-30-2022 End: 07-30-2022 ambulatory [...] Work Phone: Start: 01-27-2025 CULTURE, BLOOD 1 [facility] sarahy Arora DO Work Phone: Start: 01-27-2025 CULTURE, BLOOD 1 [facility] sarahy Hemphill DO Work Phone: Start: 01-27-2025 Basic metabolic pane l calcium total Kyung Miester STOCK REPAIRER - [employer]MING [employer]INTENANCE Work Phone: Start: 01-26-2025 Basic metabolic pane [...] Work Phone: Start: 01-22-2025 Fluoroscopy during operation uSrendra Salinas MD Work Phone: Start: 01-22-2025 Basic [...] (7 - Td or Tdap) [facility] Start: 05-29-2026 End: 05-29-2026 Patient encounter procedure 05/29/2026 1:15 PM EDT Office Visit [facility] [address] [place] [address] Patrick Leiva MD [address] [place] [address] [facility] [place] [facility] Start: 04-09-2026 End: 04-09-2026 Patient encounter procedure [facility] Start: 05-29-2025 End: 05-29-2025 Patient encounter procedure [facility] [place] [facility] Comment on above: Arrived Start: 05-19-2025 Influenza vaccination Flu vaccine (Season Ended) [facility] Start: 05-15-2025 End: 05-15-2025 Patient encounter procedure 05/15/2025 3:30 PM EDT Office Visit [facility] [address] [place] [id number] Patrick Leiva MD [address] [place] [address] [facility] Start: 05-05-2025 Urine culture [facility] Start: 05-05-2025 Bacteria identified in Urine by Culture Urine Culture [facility] Start: 04-24-2025 End: 04-24-2025 Patient encounter procedure [facility] Comment on above: Arrived Start: 04-10-2025 End: 04-10-2025 Patient encounter procedure [facility] Comment on above: Arrived Start: 04-05-2025 End: 04-05-2025 Patient encounter procedure 04/05/2025 1:00 PM EDT Office Visit [facility] [address] [id number] Jefferson Gibbs DO [address] [place] [address] Arrived [facility] Comment on above: Arrived Start: 01-22-2025 End: 01-22-2025 CYSTOSCOPY URETERAL STENT INSERTION CYSTOSCOPY URETERAL STENT INSERTION Renal calculus, left 01/22/2025 9:28 AM EDT [facility] Start: 01-21-2025 Urine culture [facility] Start: 01-21-2025 Bacteria identified in Urine by Culture Urine Culture [facility] Start: 12-02-2024 Urine culture [facility] Start: 12-02-2024 Bacteria identified in Urine by Culture Urine Culture [facility] Start: 06-19-2024 COVID-19 Vaccine ( season) COVID-19 Vaccine ( season) [facility] Start: 04-10-2024 [facility] Start: 04-08-2024 Referral to Animation Director [facility] Start: 04-08-2024 Hospital admission [facility] Start: 04-08-2024 [facility] Start: 06-19-2022 Influenza vaccination INFLUENZA (#1) [facility] Start: 10-19-2021 DEPRESSION ASSESSMENT DEPRESSION ASSESSMENT [facility] Start: 2021 HPV TESTING HPV TESTING [facility] Start: 2021 Screening for malignant neoplasm of cervix [facility] Start: 2012 PAP TESTING PAP TESTING [facility] Start: 2012 Screening for malignant neoplasm of cervix Pap smear [facility] Start: 2010 Urine microalbumin profile DTAP,TDAP,TD (1 - Tdap) [facility] Start: 2009 HEPATITIS C SCREENING HEPATITIS C SCREENING [facility] Start: 2009 Hepatitis C screening Hepatitis C screen [facility] Start: 2009 HIV SCREENING HIV SCREENING [facility] Start: 2006 HIV screening HIV screen [facility] Start: 2004 Varicella vaccine (1 of 2 - 13+ 2-dose series) Varicella vaccine (1 of 2 - 13+ 2-dose series) [facility] Start: 2003 Depression Screen Depression Screen [facility] Start: 1995 Polio vaccine (4 of 4 - 4-dose series) Polio vaccine (4 of 4 - 4-dose series) [facility] Start: 03-14-1992 COVID-19 VACCINE (#1) COVID-19 VACCINE (#1) [facility] Start: 1991 HEPATITIS B (1 of 3 - 3-dose series) HEPATITIS B (1 of 3 - 3-dose series) [facility] End: 01-24-2025 Basic metabolic 2000 panel - Serum or Plasma Basic metabolic panel Lab Routine Daily for 3 Days starting 01/22/2025 until 01/24/2025, 1 completed [employer] Comment on above: Daily for 3 Days starting 01/22/2025 unt il 01/24/2025, 1 completed End: 01-24-2025 CBC W Auto Differential panel - Blood CBC with Auto Differential Lab Routine Daily for 3 Days starting 01/22/2025 until 01/24/2025 [employer] Comment on above: Daily for 3 Days starting 01/22/2025 unt il 01/24/2025 Culture, Blood 1 [facility] Culture, Urine [employer] Comment on above: Release Upon Ordering for 1 Occurrences starting 01/22/2025 Cytology Cervical or vaginal smear or scraping study Pap Smear Pathology and Cytology Routine Well woman exam with routine gynecological exam Ordered: 04/05/2025 [employer] Work Phone: Comment on above: Ordered: 04/05/2025 Dermatopathology exam Dermatopat hology exam Pathology and Cytology Timed Neoplasm of unspecified behavior of bone, soft tissue, and skin Release Upon Ordering for 1 Occurrences starting 04/10/2025 [employer] Phone: Comment on above: Release Upon Ordering for 1 Occurrences starting 04/10/2025 Dermatopathology exam Dermatopat hology exam Pathology and Cytology Timed Neoplasm of unspecified behavior of bone, soft tissue, and skin Release Upon Ordering for 1 Occurrences starting 05/15/2025 [employer] Work Phone: Comment on above: Release Upon Ordering for 1 Occurrences starting 05/15/2025 End: 01-22-2025 Glucose [Mass/volume] in Serum or Plasma POCT Glucose Point of Care Testing Routine One Time for 1 Occurrences starting 01/22/2025 until 01/22/2025 [employer] Work Phone: Comment on above: One Time for 1 Occurrences starting 03/2025 until 01/22/2025 Human papilloma viru s DNA [Presence] in Unspecified specimen by Probe with amplification HPV DNA probe, amplified Microbiology Routine Well woman exam with routine gynecological exam Ordered: 04/05/2025 [facility] Comment on above: Ordered: 04/05/2025 Oxygen therapy [Mini mum Data Set] Initiate Oxygen Therapy Protocol Respiratory Care Routine As Needed until discontinued starting 01/21/2025 [employer] Comment on above: As Needed until discontinued starting Oxygen therapy [Mini mum Data Set] Initiate Oxygen Therapy Protocol Respiratory Care Routine As Needed until discontinued starting 01/26/2025 [employer] Comment on above: As Needed until discontinued starting Patient Education Bipolar Disord er (DC) [facility] DC Instructions Know your Meds [facility] Work Phone: Patient referral [facility] Work Phone: End: 01-22-2025 Stone Analysis Stone Analysis Microbiology Routine One Time for 1 Occurrences starting 01/22/2025 until 01/22/2025 [employer] Work Phone: Comment on above: One Time for 1 Occurrences starting 03/2025 until 01/22/2025 Stone Analysis Stone Analysis Microbiology [employer] Label Print 01/22/2025 4:44 AM EDT [employer] End: 01-26-2025 Stone Analysis Stone Analysis Microbiology Routine One Time for 1 Occurrences starting 01/26/2025 until 01/26/2025 [employer] Comment on above: One Time for 1 Occurrences starting 01/17 until 01/26/2025 Immunizations Immunization Date Immunization Notes Care Provider Beata moore 08-01-2019 influenza virus vaccine, unspecified formulation Nona RAYGOZA [facility] 08-09-2018 tetanus toxoid, redu franco diphtheria toxoid, and acellular pertussis vaccine, adsorbed Nona RAYGOZA [facility] 08-08-2018 influenza virus vaccine, unspecified formulation Nona RAYGOZA [facility] 06-19-2004 hepatitis B vaccine, pediatric or pediatric/adolescent dosage Nona RAYGOZA [facility] 03-27-2004 hepatitis B vaccine, pediatric or pediatric/adolescent dosage Nona RAYGOZA [facility] 12-18-2003 hepatitis B vaccine, pediatric or pediatric/adolescent dosage Nona RAYGOZA [facility] 12-18-2003 measles, mumps and rubella virus vaccine Nona RAYGOZA [facility] 04-10-1993 DTaP, unspecified formulation [employer] [facility] 04-10-1993 poliovirus vaccine, unspecified formulation [employer] [facility] 12-28-1992 Hib, unspecified formulation Nona RAYGOZA [facility] 12-28-1992 measles, mumps and rubella virus vaccine N[employer] [facility] 03-26-1992 Hib, unspecified formulation Nona RAYGOZA [facility] 01-18-1992 Hib, unspecified formulation Nona RAYGOZA [facility] 1991 Hib, unspecified formulation Nona RAYGOZA [facility] Payers Date Payer Category Payer Self-pay 2023 Private Health Insurance [employer] [id number] 2023 Unknown [id number] 2021 Medicaid [place] MEDICA[place] TERM 09/17 [facility] MEDICAID [id number] 2021-Present [phone] [address] [place] [address] Medicaid [id number] 1991 Unknown [id number] 2.16.840.1.856201.3.579.2. 593 1991 Unknown [id number] 2.16.840.1.422980.3.579.2. 593 1991 Unknown [id number] 2.16.840.1.655864.3.579.2. 593 1991 Unknown [id number] 2.16.840.1.401414.3.579.2. 593 1991 Unknown [id number] 2.16.840.1.111999.3.579.2. 593 1991 Unknown [id number] 2.16.840.1.654487.3.579.2. 593 1991 Unknown [id number] 2.16.840.1.544235.3.579.2. 593 1991 Unknown [id number] 2.16.840.1.350812.3.579.2. 593 1991 Unknown [id number] 2.16.840.1.971600.3.579.2. 593 1991 Unknown [id number] 2.16.840.1.461641.3.579.2. 593 1991 Unknown [id number] 2.16.840.1.207681.3.579.2. 593 1991 Unknown [id number] 2.16.840.1.698092.3.579.2. 593 1991 Unknown [id number] 2.16.840.1.648971.3.579.2. 593 1991 Unknown [id number] 2.16.840.1.081470.3.579.2. 593 1991 Unknown [id number] 2.16.840.1.648487.3.579.2. 593 1991 Unknown [id number] 2.16.840.1.140756.3.579.2. 593 1991 Unknown [id number] 2.16.840.1.031575.3.579.2. 727 1991 Unknown [id number] 2.16.840.1.029116.3.579.2. 727 1991 Unknown [id number] 2.16.840.1.954851.3.579.2. 727 1991 Unknown [id number] 2.16.840.1.711172.3.579.2. 727 1991 Unknown [id number] 2.16.840.1.467301.3.579.2. 174 1991 Unknown [id number] 2.16.840.1.112095.3.579.2. 175 1991 Unknown [id number] 2.16.840.1.145920.3.579.2. 175 1991 Unknown [id number] 2.16.840.1.132680.3.579.2. 175 1991 Unknown [id number] 2.16.840.1.675136.3.579.2. 175 1991 Unknown [id number] 2.16.840.1.694684.3.579.2. 718 1991 Unknown [id number] 2.16.840.1.537463.3.579.2. 1259 1991 Unknown [id number] 2.16.840.1.108491.3.579.2. 1259 1991 Unknown [id number] 2.16.840.1.875608.3.579.2. 1259 1991 Unknown [id number] 2.16.840.1.453038.3.579.2. 1259 1959 Medicaid [id number] 1959 Self-pay [id number] 1959 Unknown [id number] Unknown [id number] 2.16.840.1.859193.3.579.2. 531 Unknown [id number] 2.16.840.1.074631.3.579.2. 531 Unknown [id number] 2.16.840.1.652824.3.579.2. 531 Social History Date Type Detail [facility] Start: 1991 Sex Assigned At Not on file [facility] Start: 08-20-2021 End: 04-10-2025 Tobacco smoking status Never smoked tobacco (finding) [facility] Tobacco smoking status Never [facility] Start: 01-22-2025 End: 05-15-2025 Sex Assigned At Female [facility] Start: 1991 Sex Assigned At Female F [facility] Start: 11-24-2024 End: 12-04-2024 Sex Female (finding) [facility] Start: 01-22-2025 End: 04-10-2025 Tobacco use and exposure Smokeless tobacco non-user [facility] Start: 01-22-2025 End: 01-27-2025 Alcoholic beverage intake Ex-drinker (finding) [facility] Start: 01-22-2025 End: 05-15-2025 History of Social function [facility] Has the [employer], or [employer] threatened to shut off services in your home in past 12Mo [employer] (I/We) worried wheth er (my/our) food would run out before (I/we) got money to buy more. Never true [facility] [employer] Start: 01-10-2024 End: 05-29-2025 Alcoholic beverage intake Lifetime non-drinker (finding) [facility] Medical Equipment Procedure Code Equipment Code Equipment Origin al Text Equipment Identifier Dates Stent Uret 6fr L 26cm Percflx Hydr+ Tapr Tip Grad - [id number] , [id number] FDA Start: 01-22-2025 Stent Uret 6fr L 26cm Percflx Hydr+ Dbl Pgtl Thrd 2 - [id number] [id number] , [id number], [id number] FDA Start: 01-27-2025 Goals Date Patient Goal Desired Activity /State Functional Status Date Assessment Result Facility 04-10-2024 Functional status Patient at Baseline 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, soft tissue, and skin Plan: Skin excision, Skin repair Follow up: 14 days for s/r documented in this encounter [facility] 04-24-2025 History of Present illness Narrative [...] Visit: as scheduled documented in this encounter [facility] 04-10-2025 History of Present illness Narrative [...] OF RIGHT UPPER EYELID Right Upper Eyelid Parc papule Favor possible stye, recommend patient continue [...] Visit: 2 weeks documented in this encounter [facility] 04-05-2025 History of Present illness Narrative [...] (BMI) of 40.1 to 44.9 in adult ([facility]) 04/10/2023 Encounter for follow-up examination after completed treatment for conditions other than malignant neoplasm 04/10/2023 IUD contraception 04/10/2023 Menorrhagia with regular cycle 04/10/2023 Anti-M isoimmunization affecting , 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[facility]) 03/18/2018 Anxiety 07/26/2020 Bipolar disorder ([facility]) 06/01/2023 Dysuria 06/01/2023 Entrapment of left ulnar nerve 06/01/2023 Feeling of incomplete bladder emptying 06/01/2023 Flank pain 06/01/2023 Frequency of urination 06/01/2023 History of chlamydia 07/26/2020 History of gestational diabetes 07/26/2020 History of kidney stones 06/01/2023 Hypercalciuria 06/01/2023 Hyperoxaluria 06/01/2023 Intrauterine ([facility]) 02/18/2018 Lesion of ulnar nerve 06/01/2023 Mass of scalp 06/01/2023 Muscle pain 06/01/2023 Microhematuria 06/01/2023 Astigmatism 05/05/2017 Nocturia 06/01/2023 Overweight 06/01/2023 Pyelonephritis 06/01/2023 Kidney stone 06/01/2023 Retroflexion of uterus 06/01/2023 Sprain of calcaneofibular ligament 06/01/2023 Streptococcal pharyngitis 06/01/2023 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/01/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 06/01/2023 Superficial thrombophlebitis 06/01/2023 Term delivery with labor in third trimester ([facility]) 08/06/2018 Urge incontinence 06/01/2023 Urinary urgency 06/01/2023 UTI (urinary tract infection) 06/01/2023 Mass of left breast 01/08/2024 Resolved Ambulatory Problems Diagnosis Date Noted Encounter for gynecological examination (general) (routine) without abnormal findings 04/10/2023 Past Medical History: Diagnosis Date Abnormal Pap smear of cervix Anxiety and depression Bipolar 1 disorder (HCC) Bladder prolapse, congenital ([facility]) Dysplasia of cervix S/P VH (vaginal hysterectomy) 05/06/2023 Yeast infection HISTORY PAST MEDICAL HISTORY SOCIAL HISTORY Past Medical History: Diagnosis Date Abnormal Pap smear of cervix Anxiety and depression Bipolar 1 disorder (HCC) Bladder prolapse, congenital ([facility]) Dysplasia of cervix History of [...] nursing note reviewed. Exam conducted with a screen handler present. Vitals: Estimated body mass index is [...] them. Patient can also view results via [employer]. I reinforced importance of condom use for [...] Jefferson Gibbs DO documented in this encounter [facility] 01-29-2025 History of Present illness Narrative Patient given all discharge instructions and education. Patient and present for teaching. Patient voices she still has antibiotic at home and was instructed to continue to taking them. Patient also instructed to pull stent. Awaiting scripts from pharmacy. Images from the original note were not included. [facility] Office: [phone] Duncan Shelton DO, Rad Burks DO, Gerald [...] WAYNE, Felicita Rm, WAYNE, Pau Viera, WAYNE [facility] IN-PATIENT SERVICE [facility] Progress Note 01/29/2025 9:05 AM Name: Diana Barriga Acct: [id number] Room: [address] [place] [address] Day: 3 Admit Date: 01/26/2025 5:25 PM [...] results for input(s): LABALBU , LABA1C , D9USOZU , FT4 , TSH , AST , ALT , LDH , GGT , ALKPHOS , BILITOT , BILIDIR , AMMONIA , AMYLASE , LIPASE , LACTATE , CHOL , HDL , CHOLHDLRATIO , TRIG , VLDL , UDB83KY , PHENYTOIN , PHENYF , URICACID , POCGLU in the last 72 hours. Invalid input(s): PROT , C5SPFOF , LABGGT , LDLCHOLESTEROL ABG:No results found for: POCPH , PHART , PH , POCPCO2 , OAO7RRF , PCO2 , POCPO2 , PO2ART , PO2 , POCHCO3 , NSK9EOG , HCO3 , NBEA , PBEA , BEART , BE , THGBART , THB , YEK5EWB , GZPT0EKC , A9YMJSGF , O2SAT , FIO2 Lab Results Component [...] from the original note were not included. [facility] Office: [phone] Duncan Shelton DO, Rad Burks DO, Gerald [...] Rogers MD, Johnathon Cerda MD, Makenzie Alberts, PARTS REMOVER, [place], PARTS REMOVER, Casey Mercer, PARTS REMOVER, Galilea Bradshaw, [facility], Ritika Villaseñor, PARTS REMOVER, Indu Montoya, PARTS REMOVER, Angelica Chaney, PARTS REMOVER, Vivian Kahn, PARTS REMOVER, Garima Balbuena, PA-C, Kyung Barkley, PARTS REMOVER, Hetal Morris, PARTS REMOVER, Yvette Canchola, PARTS REMOVER, Gail Greene, PARTS REMOVER, Dominguez Nunez, PA-C, Mar Sanchez, PARTS REMOVER, Cecelia Pearson, METALWORKING SPECIALIST, Ivy Cortes, PARTS REMOVER, Felicita Rm, PARTS REMOVER, Pau Viera, PARTS REMOVER [facility] IN-PATIENT SERVICE [facility] Progress Note 01/28/2025 1:05 PM Name: Diana Barriga Acct: [id number] Room: 0321/0321-02 Day: 2 Admit Date: 01/26/2025 [...] results for input(s): LABALBU , LABA1C , U7XJDVD , FT4 , TSH , AST , ALT , LDH , GGT , ALKPHOS , BILITOT , BILIDIR , AMMONIA , AMYLASE , LIPASE , LACTATE , CHOL , HDL , CHOLHDLRATIO , TRIG , VLDL , CFL51LO , PHENYTOIN , PHENYF , URICACID , POCGLU in the last 72 hours. Invalid input(s): PROT , G7WNCJU , LABGGT , LDLCHOLESTEROL ABG:No results found for: POCPH , PHART , PH , POCPCO2 , TEM9RCO , PCO2 , POCPO2 , PO2ART , PO2 , POCHCO3 , VYI1EJI , HCO3 , NBEA , PBEA , BEART , BE , THGBART , THB , YUT0SPF , TQLI5BIO , X5MUQQOS , O2SAT , FIO2 Lab Results Component [...] 0.9 0.7 Recent Labs 01/26/25 1753 COLORU Hayden* PHUR 6.5 WBCUA 20 TO 50 RBCUA [...] mass loss Fluid Accumulation: Unable to assess Business Systems Analyst Strength: Not Performed Nutrition Assessment: 34 y.o.F [...] Measures: Height: 167.6 cm (5' 5.98 ) [place] Body Weight (IBW): 130 lbs (59 kg) Current Body Weight: 81.6 kg (179 lb 14.3 oz), 138.4 % IBW. Current BMI (kg/m2): 29 Estimated Daily Nutrient Needs: Energy Requirements Based On: Formula Weight Used for Energy Requirements: Current Energy (kcal/day): 6880-4485 kcals/day Weight Used for Protein Requirements: Current Protein (g/day): 82-92 g/day Method Used for Fluid Requirements: 1 ml/kcal Fluid (ml/day): 9342-6053 ml/day Nutrition Diagnosis: Inadequate oral intake related [...] determine Anastasiya Medel RDN, LD, MS Contact: [phone] Images from the original note were not included. [facility] Office: [phone] Duncan Shelton DO, Rad Burks DO, Gerald [...] Rogers MD, Johnathon Cerda MD, Makenzie Alberts, PARTS REMOVER, [place], PARTS REMOVER, Casey Mercer, PARTS REMOVER, Galilea Bradshaw, [facility], Ritika Villaseñor, PARTS REMOVER, Indu Montoya, PARTS REMOVER, Angelica Chaney, PARTS REMOVER, Vivian Kahn, PARTS REMOVER, Garima Balbuena, PA-C, Kyung Barkley, PARTS REMOVER, Hetal Morris, PARTS REMOVER, Yvette Canchola, PARTS REMOVER, Gail Greene, PARTS REMOVER, Dominguez Nunez, PA-C, Mar Sanchez, PARTS REMOVER, Cecelia Pearson, METALWORKING SPECIALIST, Ivy Cortes, PARTS REMOVER, Felicita Rm, PARTS REMOVER, Pau Viera, PARTS REMOVER [facility] IN-PATIENT SERVICE [facility] Progress Note 01/27/2025 9:31 AM Name: Diana Barriga Acct: [id number] Room: 0321/0321-02 Day: 1 Admit Date: 01/26/2025 [...] results for input(s): LABALBU , LABA1C , P2YCFIC , FT4 , TSH , AST , ALT , LDH , GGT , ALKPHOS , BILITOT , BILIDIR , AMMONIA , AMYLASE , LIPASE , LACTATE , CHOL , HDL , CHOLHDLRATIO , TRIG , VLDL , REI36OZ , PHENYTOIN , PHENYF , URICACID , POCGLU in the last 72 hours. Invalid input(s): PROT , O2JKZEH , LABGGT , LDLCHOLESTEROL ABG:No results found for: POCPH , PHART , PH , POCPCO2 , LBW3WJA , PCO2 , POCPO2 , PO2ART , PO2 , POCHCO3 , QGA5VHW , HCO3 , NBEA , PBEA , BEART , BE , THGBART , THB , UGM7XPK , BZIK9DZY , A9NSWDKA , O2SAT , FIO2 Lab Results Component [...] for DVT ppx Medical Decision Making: Medium aNthen Hemphill DO 01/27/2025 9:31 AM Urology Progress [...] CREATININE 0.9 Recent Labs 01/26/25 1753 COLORU Hayden* PHUR 6.5 WBCUA 20 TO 50 RBCUA [...] PM EDT documented in this encounter [facility] 01-29-2025 Hospital course Narrative Images from the original note were not included. [facility] Office: [phone] Duncan Shelton DO, Rad Burks DO, Gerald [...] Rogers MD, Johnathon Cerda MD, Makenzie Alberts, PARTS REMOVER, [place], PARTS REMOVER, Casey Mercer, PARTS REMOVER, Galilea Bradshaw, [facility], Ritika Villaseñor, PARTS REMOVER, Indu Montoya, PARTS REMOVER, Angelica Chaney, PARTS REMOVER, Vivian Kahn, PARTS REMOVER, Garima Balbuena, PAAilynC, Kyung Barkley, PARTS REMOVER, Hetal Morris, PARTS REMOVER, Yvette Canchola, PARTS REMOVER, Gail Greene, PARTS REMOVER, Dominguez Nunez PAAilynC, Mar Sanchez, PARTS REMOVER, Cecelia Pearson, [facility], Ivy Cortes, PARTS REMOVER, Felicita Rm, PARTS REMOVER, Pau Viera, PARTS REMOVER [facility] IN-PATIENT SERVICE [facility] Discharge Summary Patient ID: Diana Barriga : 1990 ACCOUNT: [id number] Patient's PCP: Domingo Snyder MD Admit Date: [...] Physician Follow Up: Domingo Snyder MD [address] [facility] [address] Schedule an appointment as soon as possible for a visit in 1 week(s) Adonis Guerra MD [address] [facility] [place] [address] Follow up Renal US in 6 [...] narcotics Please call attending physician or hospital patching machine operator with questions Call or Present [...] care. documented in this encounter [facility] 01-28-2025 Hospital Discharge instructions [place] [...] narcotics Please call attending physician or hospital patching machine operator with questions Call or Present [...] questions. documented in this encounter [facility] 01-22-2025 History of Present illness Narrative [...] clover documented in this encounter [facility] 01-22-2025 Hospital course Narrative Images from the original note were not included. [facility] Office: [phone] Duncan Shelton DO, Rad Burks DO, Gerald [...] Barkley CNP, Hetal Morris CNP, Yvette Canchola, PARTS REMOVER, Gail Greene, PARTS REMOVER, Dominguez Nunez PA-C, Mar Sanchez CNP, Cecelia Pearson, KYUNG, Ivy Cortes CNP, Felicita Rm, WAYNE, Pau Viera, WAYNE [facility] IN-PATIENT SERVICE [facility] Discharge Summary Patient ID: Diana Barriga : 1990 ACCOUNT: [id number] Patient's PCP: Domingo Snyder MD Admit Date: [...] who was transferred to our hospital from [facility] for evaluation of flank pain. [...] Home Physician Follow Up: Adonis Guerra MD [address] [place] [address] Schedule an appointment as soon as [...] Your Medications These medications were sent to [facility] - [place], [place] - [address] [facility] - P [phone] - F [phone] [address] [facility] [address] hyoscyamine 0.125 MG tablet oxyCODONE 5 MG [...] v documented in this encounter [facility] 01-22-2025 Hospital Discharge instructions Zia Covington [...] narcotics Please call attending physician or hospital patching machine operator with questions Call or Present to ED if fever (> 101F), intractable nausea vomiting or pain. Rx e-prescribed Pt should follow up with Dr. Guerra, in 1-2 weeks, for definitive stone treatment, call to confirm appointment documented in this encounter [facility] 04-10-2024 Discharge summary Note Date/Time April 10, 2024 7:10am [facility] [address] [place] [address] Discharge Summary Signed Patient: Diana Barriga MR#: [id number] : 1990 Acct:[id number] Age/Sex: 33 / F Adm Date: 4 Loc: Room: [address] [place] [address]: Arnulfo Aviles MD Copies to: [...] Dr. Fenton but wants to switch to [place]. Along with this patient is in marriage counseling with her current and that today's session was not good. Patient stated she needs to be home to take care of her kids, the custody charlton, and her marriage. Patient upset because she missed her son's play and has plans to take kids to [place] tomorrow. Patient denies any suicidal ideation denies hallucinations denies racing thoughts. Patient reports that there is no changes in her appetite or sleep. Patient reports that she feels fine. She has tried a lot of medications in the past and believes none of them have worked. He is going to [place] for psych therapy. He wants to try [...] She has an appointment coming up with [facility] counseling. She deniedrecent suicide attempts or self [...] signed by Arnulfo Aviles MD> 04/10/24 0929 [facility] Work Phone: 1(331) 992-845006-22-2024 History and physical note Author Arnulfo ornelas [facility] April 09, 2024 9:09am Note Date/Time April 09, 2024 8:43 am [facility] [address] [place] [address] Psychiatry H&P Signed Patient: Diana Barriga MR#: [id number] : 1990 Acct:[id number] Age/Sex: 33 / F Adm Date: 4 Loc: Room: [address] [place] [address] Type: ADM IN Attending Dr: Arnulfo Aviles [...] Dr. Fenton but wants to switch to [place]. Along with this patient is in marriage counseling with her current and that today's session was not good. Patient stated she needs to be home to take care of her kids, the custody char[place], and her marriage. Patient upset because she missed her son's play and has plans to take kids to [place] tomorrow. Patient denies any suicidal ideation denies hallucinations denies racing thoughts. Patient reports that there is no changes in her appetite or sleep. Patient reports that she feels fine. She has tried a lot of medications in the past and believes none of them have worked. He is going to [place] for psych therapy. He wants to try therapy before any medications. 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 Documented By: Arnulfo Aviles MD 4 0800 Signed By: <Electronically signed by Arnulfo Aviles MD> 04/09/24 0909 [facility] Work Phone: 1(713) 290-799106-02-2023 Hospital Discharge instructions Follow Up Care 03/20/2023 11:51:58 With:IDALMIS BORDEN, Nona Turner, URL Address: [address] [place], [place] [id number]- When: Unknown [facility] 06-02-2023 Hospital Discharge instructions Patient Education 03/20/2023 [...] include: ?8 oz (237 mL) of milk, nxoofgc-jurbpoaffwdh-pssmc milk, and calcium- fortifiedfruit juice. Calcium-fortified means [...] ?Spinach (cooked), rhubarb, beets, sweet potatoes, and Anguillan chard. ?Peanuts. ?Potato chips, ukrainian fries, and baked potatoes with skin on. ?Nuts and nut products. ?Chocolate. If you regularly take a diuretic medicine, make sure to eat at least 1 or 2 servings of fruits or vegetables that are high in potassium each day. These include: ?Avocado. ?Banana. ?Hayden, prune, carrot, or tomato juice. ?Baked potato. [...] magnesium, fish oil, or vitamin B6. Take maai-dov-brgmygx and prescription medicines only as told by [...] Casseroles. Pizza. Lasagna. Frozen meals. Potato chips. Maldivian fries. The items listed above may not [...] provider. Document Revised: 06/16/2022 Document Reviewed: 06/16/2022 [employer] Patient Education 2022 [employer] Follow Up Care 12/26/2022 08:46:46 With:IDALMIS BORDEN, Nona Turner, URL Address: [facility] [address], [place] [address]- When: Unknown [facility] 01-20-2023 NoteOPERATIVE NOTE OPERATION DATE: 11/07/2022 PROCEDURE: Mery endometrial ablation with LEEP. PREOPERATIVE DIAGNOSIS: Cervical dysplasia, menorrhagia. POSTOPERATIVE DIAGNOSIS: Cervical dysplasia, menorrhagia. ANESTHESIA: General. SURGEON: Jefferson Gibbs D.O. BREADING MACHINE TENDER: None. BLOOD LOSS: 50 mL. URINE OUTPUT: [...] taken to Recovery Room in stable condition.[id number] Discharge instructions Follow Up Care 09/25/2022 13:54:04 With:IDALMIS BODREN, Nona Turner, DANYA Address: [address] [place], [place] [address]- When: Unknown [facility] 12-01-2022 NoteOPERATIVE NOTE OPERATION DATE: 09/18/2022 PREOPERATIVE [...] usual fashion. I started by passing a 22-Maldivian Olympus cystoscope per urethra and into the [...] removed. She was then transferred to a [place] and wheeled to PACU in stable condition.[id number] NoteHNO ID: [id number] Author: Daniel Montgomery APRN.[facility] Service: ? Author Type: Nurse Practitioner Type: Progress Notes Filed: 09/04/2022 7:46 AM Note Text: The patient did not show up for this appointment. The patient did not show up for this appointment.[id number] History of Present illness Narrative* Daniel Montgomery APRN.PARTS REMOVER - 09/04/2022 7:40 AM EST The patient did not show up for this appointment. The patient did not show up for this appointment. [facility] NotePROCEDURE: XR ANKLE LT MIN 3 V COMPARISON: None. HISTORY: Sprain of calcaneofibular ligament FINDINGS: BONES:No fracture, acute abnormality, or significant arthropathy. SOFT TISSUES:Extensive lateral soft tissue swelling EFFUSION:None visible. OTHER: Negative. IMPRESSION: Lateral soft tissue swelling. No acute fracture Electronically authenticated by: GLEN PEREZ Date: 2022-07-03 07:09[facility] Future Appointments Appointment Date:03/20/2023 10:15:00 AM Scheduled Provider:Nona RAYGOZA MD Location:[facility] Appointment Type:URO Office Visit [facility] evaluation + Plan note Future Appointments Appointment Date:12/04/2023 09:45:00 AM Scheduled Provider:Nona RAYGOZA MD Location:[facility] Appointment Type:URO Office Visit Diagnostic Tests Pending * Electrolyte Panel 03/20/23 [facility] evaluation note* Diagnosis NO SHOW- Primary [facility]* Diagnosis Onset Date Resolution Status Bipolar disorder acute [facility] Work Phone: evaluation noteNo assessment information available [facility] Work Phone: evaluation note* Diagnosis VUR (vesicoureteric reflux) Vesicoureteral reflux, unspecified or without reflux nephropathy [facility] note* Diagnosis Left ureteral calculus- Primary Calculus of ureter Renal calculus, left Calculus of kidney Acute postoperative pain Other acute postoperative pain Acute cystitis without hematuria Acute cystitis Acute postoperative pain Other acute postoperative pain Urinary tract obstruction by kidney stone Calculus of kidney [facility]* Diagnosis Hydronephrosis with renal calculous obstruction- Primary Bilateral ureteral calculi Acute postoperative pain Other acute postoperative pain Left ureteral calculus Calculus of ureter S/P cystoscopy with ureteral stent placement Pyelonephritis Pyelonephritis, unspecified documented in this encounter [facility]* Diagnosis Well woman exam with routine gynecological exam Routine gynecological examination H/O: hysterectomy Acquired absence of both cervix and uterus Night sweats Generalized hyperhidrosis documented in this encounter [facility]* Diagnosis Hordeolum externum of right upper eyelid- Primary Neoplasm of unspecified behavior of bone, soft tissue, and skin documented in this encounter [facility]* Diagnosis Encounter for removal of sutures- Primary documented in this encounter [facility]* Diagnosis Neoplasm of unspecified behavior of bone, soft tissue, and skin- Primary documented in this encounter [facility] note* Diagnosis Encounter for removal of sutures- Primary documented in this encounter [facility] HealthcareHospital course Narrative No data available for this section [facility] progress note No data available for this section [facility] reason for referral (narrative)No reason for referral information [facility] Work Phone: Reason for visit Narrative* Imaging (Routine) - Open Specialty Diagnoses / Procedures Referred By Luis grigsby Referred To Contact Radiology Diagnoses VUR (vesicoureteric reflux) Procedures FL VOIDING URETHROCYSTOGRAM S&I Adonis Guerra MD [address] [place] [address] Phone: tel: fax: Referral ID Status Reason Start Date Expiration Date Visits Re quested Visits Authorized [id number] Open 01/09/2025 01/09/2026 1 1 [facility] for visit Narrative* Auth/Cert Specialty Diagnoses / Procedures Referred By Luis grigsby Referred To Contact Diagnoses Urinary tract obstruction by kidney stone UTI (urinary tract infection) Ureteral calculi Luis Felipe Delacruz MD [address] [facility] [place] [address] Phone: tel: fax: [facility] [employer] [address] [place] [address] Referral ID Status Reason Start Date Expiration Date Visits Re quested Visits Authorized [id number] [facility] Narrative* Auth/Cert Specialty Diagnoses / Procedures Referred By Contac t Referred To Contact Diagnoses Hydronephrosis, left Luis Felipe Delacruz MD [address] [place] [address] Phone: tel: fax: [facility] [employer] [address] [place] [address] Referral ID Status Reason Start Date Expiration Date Visits Re quested Visits Authorized [id number] 1 1 [facility] [employer] Summary Purpose Family History Relationship Condition Age [...] or prosecute any alcohol or drug abuse patient.[facility] Reason for Visit (unrecogniz ed section and content) Reason Onset Date Comments No Show 09/04/2022 No show Reason Comments Gynecologic Exam Reason Comments Suspicious Skin Lesion Reason Comments Suture / Staple Removal Care Teams (unrecognized sec tion and content) Lead Atg Developer Relationship Specialty Start Date End Date Domingo Snyder MD [address] [place] [address] Referring Family Medicine 09/01/22 Team Status: Active [...] December 02, 2024 End: December 02, 2024 Lead Atg Developer Relationship Specialty Start Date End Date Domingo Snyder MD [address] [place] [address] PCP - General Family Medicine 01/05/25 Lead Atg Developer Relationship Specialty Start Date End Date Domingo Snyder MD [address] [place] [address] PCP - General Family Medicine 01/05/25 Lead Atg Developer Relationship Specialty Start Date End Date Domingo Snyder MD [address] [place] [id number] PCP - General Family Medicine 01/05/25 Team Status: Inactive Member Role Status Dates Javi Tanner PA-C Attending Provider Active Start: January 21, 2025 End: January 21, 2025 Lead Atg Developer Relationship Specialty Start Date End Date Domingo Snyder MD [address] [place] [address] PCP - General Family Medicine 01/05/25 Lead Atg Developer Relationship Specialty Start Date End Date Domingo Snyder MD [address] [place] [address] PCP - General Family Medicine 04/13/23 Lead Atg Developer Relationship Specialty Start Date End Date Domingo Snyder MD [address] [place] [facility] [address] PCP - General Family Medicine 04/13/23 Lead Atg Developer Relationship Specialty Start Date End Date Domingo Snyder MD [address] [place] [facility] [address] PCP - General Family Medicine 04/13/23 Lead Atg Developer Relationship Specialty Start Date End Date Domingo Snyder MD [address] [place] [facility] [address] PCP - General Family Medicine 04/13/23 Lead Atg Developer Relationship Specialty Start Date End Date Domingo Snyder MD [address] [place] [address] PCP - General Family Medicine 04/13/23 Team Status: Inactive Member Role Status Dates Vj Fraire DO Attending Provider Active Start: May 05, 2025 End: May 05, 2025 Lead Atg Developer Relationship Specialty Start Date End Date Domingo Snyder MD [address] [place] [address] PCP - General Family Medicine 04/13/23 Lead Atg Developer Relationship Specialty Start Date End Date Domingo Snyder MD [address] [place] [address] PCP - General Family Medicine 04/13/23 INFORMATION SOURCE (unrecogn ized section and content) DATE CREATED AUTHOR 09/06/2022 [facility] DATE CREATED AUTHOR AUTHOR'S ORGANIZ ATION 02/19/2023 [facility] DATE CREATED AUTHOR AUTHOR'S ORGANIZ ATION 12/06/2023 [facility] DATE CREATED AUTHOR AUTHOR'S ORGANIZ ATION 10/05/2024 [place] DATE CREATED AUTHOR AUTHOR'S ORGANIZ ATION 01/16/2025 [facility] DATE CREATED AUTHOR AUTHOR'S ORGANIZ ATION 02/03/2025 [facility] DATE CREATED AUTHOR AUTHOR'S ORGANIZ ATION 04/05/[address] 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 educated on importance and intent)0928 ([facility] Hold - Provider: [facility] [employer] - Reason: Unreviewed Transfer Orders)1027 ([facility] Unhold - Provider: Anastasiya Coates RN) ibuprofen [...] (Given - Provid er: Anastasiya Coates RN)927 ([facility] Hold - Provider: Tamy Autohold - Reason: Unreviewed Transfer Orders)1027 ([facility] Unhold - Provider: Anastasiya Coates RN) Continuous Medication Order 01/20/2025 01/21/2025 01/22/2025 0.9 % sodium chloride infusion (CANCELED) IntraVENous, at 150 mL/hr, CONTINUOUS, Starting on 01/22/25 at 0015 0002 (New Bag - Prov ider: Aundrea Beltre RN)0557 (New Bag - Provider: Aundrea Beltre, FELA)0928 ([facility] Hold - Provider: [facility] [employer] - Reason: Unreviewed Transfer Orders)1027 ([facility] Unhold - Provider: Anastasiya Coates RN) PRN Medication Order 01/20/2025 01/21/2025 01/22/2025 acetaminophen (TYLENOL) suppository 650 mg(Linked Group 1) 650 mg, Rectal, EVERY 6 HOURS PRN, Starting on 01/21/25 at 2346, Until Discontinued, Pain Mild (1-3), allowed for higher pain score per patient request, Fever, For temp greater than 100.4 F (38 C), Administer if oral route cannot be used. 09 ([facility] Hold - Pro vider: [facility] [employer] - Reason: Unreviewed Transfer Orders)102 ([facility] Unhold - Provider: Anastasiya Coates RN) acetaminophen (TYLENOL) tablet 650 mg(Linked Group 1) 650 mg, Oral, EVERY 6 HOURS PRN, Starting on Sat 4/25 at 2346, Until Discontinued, Pain Mild (1-3), allowed for higher pain score per patient request, Fever, For temp greater than 100.4 F (38 C), Maximum dose of acetaminophen is 4000 mg from all sources in 24 hours. 927 ([facility] Hold - Pro vider: [facility] [employer] - Reason: Unreviewed Transfer Orders)102 ([facility] Unhold - Provider: Anastasiya Coates RN) magnesium [...] Patients with CrCl less than 30ml/min 927 ([facility] Hold - Pro vider: [facility] [employer] - Reason: Unreviewed Transfer Orders)1027 ([facility] Unhold - Provider: Anastasiya Coates RN) morphine [...] Anastasiya Coates RN)0928 ([facility] Hold - Provider: [facility] [employer] - Reason: Unreviewed Transfer Orders)1027 [...] Anastasiya Coates RN)0928 ([facility] Hold - Provider: [facility] [employer] - Reason: Unreviewed Transfer Orders)1027 ([facility] Unhold - Provider: Anastasiya Coates RN) ondansetron (ZOFRAN) injection 4 mg(Linked Group 3) 4 mg, IntraVENous, EVERY 6 HOURS PRN, Starting on 4/5/25 at 2346, Until Discontinued, Nausea, Vomiting, Administer if oral route cannot be used. 0001 (Given - Provid er: Aundrea Beltre RN)0554 (Given - Provider: Aundrea Beltre RN)0928 ([facility] Hold - Provider: [facility] [employer] - Reason: Unreviewed Transfer Orders)1027 ([facility] Unhold - Provider: Anastasiya Coates RN) ondansetron (ZOFRAN-ODT) disintegrating tablet 4 mg(Linked Group 3) 4 mg, Oral, EVERY 8 HOURS PRN, Starting on 4/5/25 at 2346, Until Discontinued, Nausea, Vomiting 0001 (See Alternativ e - Provider: Aundrea Beltre RN)0554 (See Alternative - Provider: Aundrea Beltre RN)0928 ([facility] Hold - Provider: [facility] [employer] - Reason: Unreviewed Transfer Orders)1027 ([facility] Unhold - Provider: Anastasiya Coates RN) oxyCODONE (ROXICODONE) immediate release tablet 2.5 mg(Linked Group 4) 2.5 mg, Oral, EVERY 4 HOURS PRN, Starting on 4/5/25 at 2346, Until Discontinued, Pain Moderate (4-6), allowed for higher pain score per patient request 0000 (See Alternativ e - Provider: Aundrea Beltre RN)0928 ([facility] Hold - Provider: [facility] [employer] - Reason: Unreviewed Transfer Orders)1027 ([facility] Unhold - Provider: Anastasiya Coates RN)1053 (See Alternative - Provider: Anastasiya Coates RN) oxyCODONE (ROXICODONE) immediate release tablet 5 mg(Linked Group 4) 5 mg, Oral, EVERY 4 HOURS PRN, Starting on Sat 4//25 at 2346, Until Discontinued, Pain Severe (7-10) 0000 (Given - Provid er: Aundrea Beltre RN)0928 ([facility] Hold - Provider: [facility] [employer] - Reason: Unreviewed Transfer Orders)1027 ([facility] Unhold - Provider: Anastasiya Coates RN)1053 (Given - Provider: Anastasiya Coates RN) polyethylene glycol (GLYCOLAX) packet 17 g 17 g, Oral, DAILY PRN, Starting on Sat 4/25 at 2346, Until Discontinued, Constipation, First line therapy for constipation 0928 ([facility] Hold - Pro vider: [facility] [employer] - Reason: Unreviewed Transfer Orders)1027 ([facility] Unhold - Provider: Anastasiya Coates RN) potassium [...] dilute if GI adverse effects occur. 927 ([facility] Hold - Pro vider: [facility] [employer] - Reason: Unreviewed Transfer Orders)102 ([facility] Unhold - Provider: Anastasiya Coates RN) potassium [...] half and each half swallowed separately. 927 ([facility] Hold - Pro vider: [facility] [employer] - Reason: Unreviewed Transfer Orders)1026 ([facility] Unhold - Provider: Anastasiya Coates RN) potassium [...] with CrCl less than 30 mL/min. 927 ([facility] Hold - Pro vider: [facility] [employer] - Reason: Unreviewed Transfer Orders)1027 ([facility] Unhold - Provider: Anastasiya Coates RN) prochlorperazine [...] IntraVENous, EVERY 24 HOURS, First dose on Juila 01/26/25 at 2045, Administer as slow IV [...] Oral, EVERY 6 HOURS PRN, Starting on Jluia 01/26/25 at 2128, Until Discontinued, Pain Mild [...] Balwinder Ashton RN)1440 ([facility] Hold - Provider: [facility] [employer] - Reason: Unreviewed Transfer Orders)1744 [...] Balwinder Ashton RN)1440 ([facility] Hold - Provider: [facility] [employer] - Reason: Unreviewed Transfer Orders)1744 ([facility] Unhold - Provider: Balwinder Ashton RN) 1203 (Given - Provider: Maryam Avila) ondansetron (ZOFRAN-ODT) disintegrating tablet 4 mg(Linked Group 1) 4 mg, Oral, EVERY 8 HOURS PRN, Starting on Julia 01/26/25 at 1726, Until Discontinued, Nausea, Vomiting 0806 (See Alternative - Provider: Balwinder Ashton RN)1440 ([facility] Hold - Provider: [facility] [employer] - Reason: Unreviewed Transfer Orders)1744 [...] or Central Line = 20 mL/lumen 1440 ([facility] Hold - Provider: Tamy [employer] - Reason: Unreviewed Transfer Orders)1744 ([facility] Unhold - Provider: Balwinder Ashton RN) Linked [...] BE BASED ON THE PRIMARY CLINICAL RECORDS. [employer] provides no warranty or guarantee of the accuracy or completeness of information in this document.
[2025-07-11 16:55] LABS: Alanine Aminotransferase 85 U/L (14-59); Albumin Globulin Ratio 1.2; Albumin Level 4.5 g/dL (3.4-5.0); Alkaline Phosphatase 67 U/L (46-116); Anion Gap 13.9; Aspartate Amino Transferase 31 U/L (15-37); Blood Urea Nitrogen 7.0 mg/dL (7.0-18.0); Calcium 9.2 mg/dL (8.5-10.1); Carbon Dioxide 27.2 mmol/L (21.0-32.0); Chloride 104 mmol/L (98-107); Estimated GFR (African America >60 (>=60 mL/min/1.73m^2); Estimated GFR (Non-African Ame >60 (>=60 mL/min/1.73m^2); Globulin 3.8 g/dL; Glucose 91 mg/dL (74-106); Magnesium 1.6 mg/dL (1.8-2.4); Potassium 3.1 mmol/L (3.5-5.1); Sodium 142 mmol/L (136-145); Total Protein 8.3 g/dL (6.4-8.2)
== END 2025-07-11 16:01 | disposition home or self-care (01) ==
LOC: LAB 16:02
PROVIDERS: PCP Family Medicine; Visit Provider Family Medicine
DX: K52.9 Noninfective gastroenteritis and colitis, unspecified (principal)
CPT/HCPCS: 36415; 80053; 83735; 84100

== ENCOUNTER 2025-07-18 08:22 | Outpatient (RCR) | payer OTHER, SELFPAY | END 2025-08-16 06:54 | disposition home or self-care (01) | LOC: PT 08:22 | PROVIDERS: PCP Family Medicine; Visit Provider Family Medicine | DX: M54.12 Radiculopathy, cervical region (principal); M54.50 Low back pain, unspecified | CPT/HCPCS: 97012; 97110; 97140; 97161 ==

== ENCOUNTER 2025-07-25 08:06 | Outpatient (OUT) | payer OTHER, SELFPAY ==
--- OUTSIDE RECORDS SUMMARY | 2025-07-25 08:10 | XMS_ITS | CCD ---
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 Name Role Phone Domingo Snyder MD Unavailable [...] JENNIFER Turner Consulting Unavailable HOY ., DR LAEN Primary Care Unavailable BERNIE ., DR TOLBERT Admitting Unavailable BERNIE ., DR TOLBERT Attending Unavailable LANTRY, DR GLEN Alford Consulting Unavailable BERNIE ., [...] Unavailable MD Domingo Snyder Primary Care Provider [phone] MD Arnulfo Aviles Admit Provider MD Arnulfo Aviles Attending Provider Domingo Snyder MD Primary Care Provider [phone] Domingo Snyder MD Attending Provider ADONIS GUERRA Referring Unavailable DOMINGO SNYDER Primary Care Unavailable Domingo Snyder MD Primary Care Provider [phone] Domingo Snyder MD Primary Care Provider [phone] Domingo Snyder MD Attending Provider Javi Tanner PA-C Attending Provider [phone] DOMINGO SNYDER Primary Care Unavailable JAVI TANNER [...] Unavailable Domingo Snyder MD Primary Care Provider [phone] Vj Fraire DO Attending Provider [phone] Domingo Snyder Attending Unavailable Domingo Snyder Admitting [...] August 16, 2022 11:38am 168 hr estradiol 0.25354 mg/hr transdermal system (14 sources) Estrogen Start: [...] as needed in the evening. 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 Dressing type: pressure dressing [facility] No Panel InformationOrdered By: Falguni Morris on 05-15-2025 [facility] Urine Cultureon 05-05-2025 Bacteria identified Cx Nom (U) ORGANISM: Citrobacter freundii complex (O:CITFRC) Richardson Count 75,000 Aerobic ANASTASIA Charge (NMIC56) ---- [...] RESISTANT TO ALL B-LACTAM DRUGS. PERFORMED BY: [facility] [address] [place] [address] PATHOLOGIST [employer] COXSWAIN CALLUM ALVA M.D. Normal [facility] Comment on above: Performed By: #### C UU #### [facility] [address] [place] [address] [place] IGP,APTIMA HPV,AGE GDLNon AGE GDLN ACOG TESTING Note . [facility] Comment on above: TESTS RESULT FLAG UN ITS REF RANGE LAB Clinician Provided Cytology Information Source.............Vagina No. of containers..01 ThinPrep Vial Age Algo ACOG Radha... FLAG LEGEND: L-Low Normal,H-High Normal,LL-Alert Low,HH-Alert High <-Panic Low,>-Panic High,A-Abnormal,AA-Critical Abnormal Performed at: 01 =[address] [place] [address] Shereen Caal MD, HPV APTIMA Negative Negative [facility] Comment on above: This nucleic acid am plification test detects fourteen high- risk HPV types (16,18,31,33,35,39,45,51,52,56,58,59,66,68) without differentiation. Performed at: =[address] [id number] English Composition Instructor: Shereen Caal MD, Phone: [phone] Performed at: [address] [id number] English Composition Instructor: Shereen Caal MD, Phone: [phone] IGP, APTIMA HPV, RFX 16/18,45 Note Abnormal . [facility] Comment on above: TESTS RESULT FLAG UN ITS REF RANGE LAB DIAGNOSIS: [A] 02 EPITHELIAL CELL ABNORMALITY. ATYPICAL SQUAMOUS CELLS OF UNDETERMINED SIGNIFICANCE (ASC-US). Recommendation: [A] 02 Suggest follow up as clinically appropriate. Specimen adequacy: 02 Satisfactory for evaluation. Performed by: 02 Tamiko Barrow, Doubler Operator (ASCP) Electronically si... 02 Capri Boston MD, [...] Low,>-Panic High,A-Abnormal,AA-Critical Abnormal Performed at: [address] [address] Shereen Caal MD, Interpretation and review of laboratory results Abnormal [facility] SPATULA-[facility]AG[facility] No Panel Informationon 04-10 Type of biopsy: [facility] Informed consent: discussed and consent obtained [...] sent for H&E Number of sutures: 2 [facility] [place] Type of biopsy: tangential Informed consent: discussed [...] taken Amount of lidocaine used: 1.0 cc [facility] Outside Recordson 04-03-2025 Outside Records [id number] [email or web address] Summaryon 03-23-2025 Coding Summary HTMLBase 64 YnmwiwdpHXm8hYe+PGhlY WQ+QX0MJFTnY92sfUGriK 0hH7IWLIqTIpliHBXYJSu FAgLaowLyKO7xdQMcGQCa IC8+OV5uNMHaScyetWVsu 2U6cFM9E96jji1zQSfokU Y4TWQzXpEtziyjv6rmrFa 6IDcuNmluOyBt OZJclY17LII5pG48Sm76m BOfaDJog9dmoCd7RyKkGJ IoDKF9mYeqJYscw7GoFDZ gY06zbGVgu8S7 CVHloLoukNKhKoHhdVI8f F4vQWmrsuesr2mvxgvqYh o3ei63dVCop7S0rVF1O1N oyxE6XZDvwNPs WobfdLXSgL1shfhig9sjb mgjOqVrONUtENa0RDb0EW WspVxwKyMxLE90DLH5CYE pkeBgK5PyMHCb gEyxKlF8a4O2Ga6VU6AID ukdL5PRZICWODgutLO+PC 43ce10C7QdIymkPfj2LOI cLGN4eDC0iB7m KDUnFFhfu4P8kWG8P0Twn nJoxw9nu2cbWRQjXPhwL1 2tyQAos9C3XNMhkPZ0CHR jzVhzThVlwR27 Oyc+UJFvlBzju4TgIdwrs 0pgg2rkuUg6HhfiHOLypw MskJmlKQQ8z1HmCy8kYZX ntJS3oAN5vN7v QaSyQzX8UTiiV958ApQzd FGaFuogC99eD3EdiFJ+PH XvHzt1CPXzrVztXO4oY7G hZGRpbmctbGVm iNlaVZ0iGIMduyhtLWJju H4qIJBxJ6z9CeShYuA8BM eaX1MhUZOwdtzgAk98eX0 gZbRsLcU8GHje Y7SphiL3WPNtsTMnWEewK TV0O86oh2X7YSNvWKAbYI Y1lJF7vJ3nfNzkklnmcXW mdDsgdmVydGlj PShgEZbqL359PYMckSuhA kNvZGluZyBEYXRlOiAgMD YvMDUvMjAyNTwvdGQ+PHR tLYQ4oGzkIYOr gKTyGZdwMx0gbLylqTnrR O5uLBFofwftSWBmvO2jMK NuhVFgoFdfDA3mHXFehuw ek816OkRaPGH2 ALAwuETyC6FgiW2rOlUeK YUfUQLlE3NjqWEtPMwkR6 25FHesZzF3QGZnaxGsH3D sLWFsaWduOiB0 e0C6Hv4Hl8VppffmV3Xyz BAxSbVhRrdwNOn5M0CzSk wvdHI+HN90WJElKS10FDa 7RAL1pBamVXmy FHIsK3SlwF0nLuWpMBMhO GRkOyc+PHRhYmxlIHdpZH RoPScxMDAlJyBzdHlsZT0 rVg5sRSSoOHEw uDsusKRtDkSda2xaNEYwJ DbzSX5qkKxcG4ZawPT5SY Zdl8i7Oq09U29kL8WxyAI +BAHrxYL8xSN6 hQ8vNeSfIdO2JGeuB324Q gZnyWHqGnzkj2ahf2qqtM u7EjH2RATcroUiiVjoDRH 9v1KwLh69M18h IHdpZHRoPSIxNSUiIHZhb Stjnb9axS3fOk9+PGNvbC P1cXG2wI2fXkHjStL6GWv xQ054JfCodWAd Vusep6amr0xpeBu0MhAyT RAhfySoiSxwYRQ9m5SfZr 56T6TknXeri1JgUjx3ad4 9sYHet0R6iCW1 P1WcSYCnosorlQBqpIluE T4tRXDgyncqFZNnyK3hUG VdD7p9DsSiXyU6RLplP4M ahvA4EZLvsSQk CPHjtDCQlZ8cpfkjr2oft glxOmZeUVXxSRe8EDw9GP GtmQogVxWqFGJ0LqX7JUD 0fUChyL2ooAkc oejmnC5tSvy+QPA1fMVil SGPUK6dKjjvzVI+PHRkIH V5kEynBBmhRMZxhR2bUKU oT1f5ReThKoK4 GDifO8DgnbQ0FBOvoPUrF YDvyNTDxI3shetsn0hybr gyZwMmXUSjJEk7HYc9PHB saWduOiBsZWZ0 DwR2YAN7kBPtvP3cqLgjk bjydZ7zNmh+QmlydGggRG A9SJg6U6XqLoh6AFSriXd eFN1onFJlFSbr Yy7enOmjwJovSH0hIQLbb qums461UvSzr8nwIAPwwL TtWLqzOWN4S10us2G7ATW uPEAdRAX2sCW4 wD2hvElamdubkKKawIbhm iAebKzvEVcdGOjyP852VF NhzRysEbYbBLe4L0EcOct 3JRPtpJnySL3o aWCfSCbnVs1kmJffvOmnT X5uFUJxmnnfy410OfYla9 oqBVPzfCYkIVcpYYA7K16 zd3U6HASmJCEr YAU0wCW7uV8uqGuhvzmvr GVmdDsgdmVydGljYWwtYW oiC242HBQpeJhnAaUccRl 9T4UkUvo6HUPm eDjgXF2ekRQxWEngQn4ol CuybMoyMK5bKUBfgwtww0 70DkCgk5kqZTRvpAOqEIc eTFF5L66qv9A6 BPGtEWHyCTA5zOD8yM4wt GlnbjogbGVmdDsgdmVydG scJYdxGChgN561TMOquXm nPlBhdGllbnQg TGklBPf0P9BrFumktCT+P A95RBYxFY24cWVmhCXgj7 mcvFs5HiZxVVPbHYM6jTp aITnra5LqOWVn O73dmPIbi4D4DOAugRgoq ZYhMyTrnTH4nI5xGArjek bfa3uzbrqzCkkwc4bkxp3 8cJ07C59iNVnz ZHRoPSIzMCUiIHZhbGlnb q4nzP2gHm5+TEFjvXU3iS Z2qM6cZIImYkS8MLotF62 9InRvcCIvPjxj w9ezb2uwtIi8DpX9CJOsv mMujRpxSLI4i4UmIm34R2 9sIHdpZHRoPSIyMCUiIHZ ndHwggm2zeH6p Ii8+AJFhaBV3zCM3oA4oX xTlCoN2BVtlX029OlPonT GeNpkaC06lO2VrdTV+PHR nSkx7AWByvQxo IG7ozSRkKHyyIn6uJIW4S iSvXnEcSKsgG6VwGNQmcd ujakfmtQB3WKFqLYVksU7 3Ac0azXiaJVYi cYVDuM6qynugs0jzkcmpD sBlEYRsWEd1VCl0CZZyeS yeIrCrBMH2TvD3ONL6cIG lhQ7riPcpnhve eC8yO4ZnRTKgeopiIo61l D0dOtAgZyF2LZynGer+TU 4XSRviH6BPTKHULCBVW7A MNS16B1ErDwr2 RODcoSegVW2ttBQqDMycN j0ujMqtqFyiMY0tFRFepb usYJHhrR7vPSYllIQmjRw nCC5eGOQvnhnv q487UiIqEWQ3GFBzaPRrU 0UohV7oPyVaNSVfYKMwV2 EthYAyJHsmY359SHjpRsS 9SEJjltYjQ9Ia GECajTqrGeL2u3Z2Qt9kK K6rCp4kXEpmVP07YF16jL Zth7M7bGP3T8YzMXJbgex pqznrmOD1NUYx JPRirK91hAObIUyvJf7ra 6V3a085TUNqCGPcwO23Rp 8rbEawZRUyvAUDnX9mnsp pf7cswtgnYeBg LKIiGRp3HKm0BBJqiAfnQ jFiWWZ9EeY0CHX3zQEfwV 9otKxeavhvcV3jZfp+MzM kCHGksgJ9P0Ri Srb7KTGzuVnjSU4ydLKhF XwlGv4hcLyzjZqiXW7eUS HxugniNIMtqV3vEXDnsLW lcNflVZ2xQASr zqvep130KkDwGFZ1FXQzt TXdH7YpiL8fCkJrLQCbLX EnJ6RvpKJaKZwfA278DBh rJvQ1YEClkyFz K9ZiTQLawRmfAuE2j4K4D z1XGN7AOOD3D4LdXuz6WO QarZtgHA5kdHVcFEezIv0 kxHdbhSphVN8i HOQfjbyaNCWacL6oAPGvv MPoyBtuSA4jZAXgpafbv7 78QeEdZUK5NWTyoQCrC3J dmX5lNyMxYLKo PHPnO7ItkNHsFTdzA468B CfxFnY3HLYmxmDwT1VjKT IwdIedMzI0m2Q7Tp5TCTp vdGQ+YL82en29 A4XbRimjOct3DZIpCIM3j RA2wI2iWMNwMEjpp8U3dT K4Q4JcwgFnru9ji5auNHG fPIpcV98hyFPf f0B2MGCncDW9URAdhItbK mBbaY95Add+PGNvbGdyb3 EeYhfde5icr1lyuEy6AoK wJSIgdmFsaWdu RYD1p5LoLq33H27oJJvtI HRoPSIzMCUiIHZhbGlnbj 6tqW2aLi7+HQIgzQF7tQW 6yZ9gBuFsZkN7 PUadD841QtGyaLWxBrhrt 7exu6fiaCi1FeCxESYlfs KcsQkeEVX0r7DfZn07G5F mkSkhu4TeVct0 vn77dLPpx9H7dYD5C9GpR YLdxnozrJWhbBkzWQ3gEO WtxeucFAKjvS5mEJWvB3h 2TwTbHcV2SLdf A9AjebZ1YQKhgMTvJCCrh ZNXvG8qvergz8ncvdqvCy IdZSNuIPe4VXp0SUPhiTv hMqNwNJU6RbO0 GYL8yJNefT7hxNcrisayv G9wOyc+OJt6q5ghxQRiCF 8lzKL8CJ99HD94dYVra9O 1vQG7H4YgLFBz lfyepzdsrTW9JJChORIbt U48Bp1ygFuvIu2yTWHzGK B0ZKPunFYmT6ZqrM0fZmA qCAOuYOTqB8Ly nFThKYceS032QIunYrK9X VClfoYfK2XlLDFgwDkcNu F0y8N1Ea6ICF47QE92ZK2 5dHBnj7N7wQY1 L6TqWTOxeoajfmkcuSK3G SOePIMouU72Dr4qeXsuZi 7mDMCmGJC8ORLpvIHdS7W yuJ5dLhAoIXYw KZFnF3BbgGKtKXaxO867A YlfCfY2DASgfyJsR6PdUC PekOhvUqD9w3R0Gr2HNv6 9CY43DK73tKVp b2V9bRD6A3KuPXFscryed gvtmHH1QOPuTMXjhZ57Zf 7xcZasNi5uSRTwXMA7YCE kmIVeQ6HqvB1f EqZfIPJyMEXaP6WroSPqD EvwD768THqfHyO4RBHwfg CwH4UqOPEfjWmuKlR9h8M 2Rm1SIVfpdwq1 E6NbKkmkgLP+PZ31IQPiR F85pOAbhXQay9vglZr5Ac VsCZAmKVP9mJgjXOyuh4H jWAIzX35zhQIp c2U (more content not included)... [facility] Provider Orderson 03-20-2025 Provider Orders [id number]#1. [id number] [facility] C Urineon 03-18-2025 C Urine >100,000 cfu/ml [...] <=2 Verified Tri/Sulf S <=2/38 Verified Normal [facility] Comment on above: Performed By: #### 6 [id number] #### [facility] (DEFAULT) [address] [place] [address] Provider Orderson 03-16-2025 Provider Orders [id number]#1. [email or web address] Normal [facility] Cult,Bloodon 02-01-2025 Cult,Blood Specimen Description .BLOOD Special Requests Culture NO GROWTH 5 DAYS Report Status FINAL 02/01/2025 [facility] Comment on above: Performed By: #### B C #### [place] [id number] English Composition Instructor: Alejandro Salazar MD Cult,Blood Specimen Description .BLOOD Special Requests RIGHT HAND 1ML Culture NO GROWTH 5 DAYS Report Status FINAL 02/01/2025 [facility] Comment on above: Performed By: #### B C #### [address] [id number] English Composition Instructor: Alejandro Salazar MD Coding Summaryon 01-30-2025 Coding Summary HTMLBase 64 VrqhfgwbUXh1yUa+PGhlY WQ+AK2VIRFvP45yjJLxiH 6fW4XTCRqTHmxcWBQSFBw JZsXkkrRzXR4xyMPmYHCj IC8+YD4tJHAsBikygHOms 7M1kVU6I15rne6pNRucbO W7GJHqCgJztfnjk4rfvXv 6IDcuNmluOyBt XINtbX60MPO0tB25Tm65s WWimVQns8uxdJz9JyKuUR PtTNE5dZrtGSgnl6VgPMB cT87ngZUsh8M4 QYOdkZjldYRnPkRayKT3f G6qYFrkrcmnp5irbnsjCk k8wj22iLVns8S0yFM3R1Y ekbE4TUEhuWPx WgsunOWVmS2ajvjsa8eto mdnIcWpGGFaUYj8OKr5KS OhkMceBsUpAU98XKM2ULY sbdIqP9EtENWj gUlrVjV8q8M3Ev9EK7NNI xkxX6PAHGXJBPracUH+PC 34na96U5QkXhylXyr3RQK yDTH3cTW4wO6e NAFaMEmpz9I7cWY8H8Uaf dUpkb1lm9poKKAiTHxoW4 5hdYOyl3L0MDFxzJB7MQW drDquJpNetN88 Oyc+PAVsnSzvu6BtPrkqz 9qmd5yxmFb3RfjeGHQyyf VuzXgwMVQ9d6FfGu8dVPX dzVG3hSC3wY6q IpItEmA5SRebX196JbEkk IBfWlciZ76vC1EndLZ+PH FmGls2CFQkdWttUS8jG9U hZGRpbmctbGVm gZabSP9fRJJmfamfKUQjh N0pMEJlR6u8HhNpMyS2KN jmY4JnPYTushzwAk46sC3 zNzSmRhI8SYzg W9SsdfC2SKKvbNFcQIrsG YL4I43kn5Y4LNSoTGQaWY X3oVM7lA5anIrocmxciPJ mdDsgdmVydGlj GXxiKWsjX310KXBzyAiwZ kNvZGluZyBEYXRlOiAgMD QvMTQvMjAyNTwvdGQ+PHR oHCF8vEmtEQVm vFTsLZjiCx4aiApkeZfsV H0dCRMvwlgvZOJolB0lUP XndWFqkIqcNK4sXCFsdbd yf400PbOlCLP2 LEObwRMjN0VvfL6iLdBwU BFpBWMxL8ToySTpNCiqB8 32JXwrEqH0MAPswqYfG7X sLWFsaWduOiB0 w6F9El8Ke4RdqkmxK9Fsm OQcSlPfSndwFSd2I1OtLi wvdHI+MQ83MOYsSW42MIc 5BZY9yPwsTEdg YLRkU9UxzG0cHaOcHUOwP GRkOyc+PHRhYmxlIHdpZH RoPScxMDAlJyBzdHlsZT0 rLf4dKBJkUJIi oJcawLErSwCfy4xfEIQoT VoqXW0vlKmuP5TgxVX9OT Qzt0a0Cc16X32lQ5MreEF +UVEwjSI6gFC1 aO2dTnVwKlT2QKlnV565X eIqvJIoMaoef9dgn3ziwT e3HzX9HPAiuaRzdTujAUQ 9a4WlTf79J23f IHdpZHRoPSIxNSUiIHZhb Acgeb3dcD7tFp6+PGNvbC X4qZL0xK4gUzOgXoH7GZi aA319FnXaxSGy Hqpwt3uch4zmsQu8EqAqW WXmjeMfdBpuFDY3t9OeBr 30P4QwuNyyj3GdGib7kw4 7jTRge0F1rSN8 X0IpHADaakfqxDJqeNtvB Y5cYFEwgifiNDEzyY2jBB ZwT1m9ZeJwEdJ3IAmcW3I pewT2EDFglUDr MXJgnQCLiX1teqjru5dwd mesJeYiMNZyTAr6PHl7RD OnpNgmBwYjZMP8EoO2NRH 7vMTiyU4yjTni tngkcT8eKdq+BGB5pNKht MDNDW3zGrzqzQS+PHRkIH O9sWpmFBamEBLcjC2nFOQ pR0l4ZnXgKfL3 ERlmU2MekiA1FAKwoCCaI OQgrDOYoP1qmlsct7frdk sgDvOpDYQgBJx1WNn0XFT saWduOiBsZWZ0 EiS4NBR0gCRikO5cyPbmz isdkE8mJom+QmlydGggRG Q2GFz1R5IoKmb9RXGesNb mOT2azHNwKAki Us8peCvndWduIA4eUSRhl jdom797PsPvk0rcGLXcqE TsANaeJVV4W01sl7D0LFJ fXAYxPSZ7nSA7 mH7jiJaqnhxjuUEpxAvmc hNxkLpcKJjmPCyhY316DI BstAelUqGnPDx0J4CyMqn 7IOVcpJqgCN5u qWAsFCfzNj5lgRvjaEahQ M2fJCEyblspu720LkOom1 caXXKnbEGkGQxmJXJ0G62 xx7G6XVTsHXMa KWZ6yAK7fO1agJjmhbvgg GVmdDsgdmVydGljYWwtYW wfV192BMYqkLxmPlRouVy 8R4VoXci7TABx vCctIE8qrUYuHKtwTs2fa WefuZooIG8cOQEpvybzs6 32PbTar9wvYNHlsKGsIIh lBHL6E43ut3F1 DVDoFKAvPSH5wMG3rA0zo GlnbjogbGVmdDsgdmVydG nkHMydPNgfY501FGSozBf nPlBhdGllbnQg OCghJHc0I6CsDygfyMW+P F88OGHgDW31zQFeaUYco3 sjbWw0YuHwUYGzITO7xBj nXXigy0RrVVIm H16iaNZkz6C2YEYzsXecd VJtVdHspLW7sU8aNQsdvx gpv1fwlvsqXhdfg1owhh0 1jV55A71eQRbe ZHRoPSIzMCUiIHZhbGlnb s9jxD5sHp0+CVOrvGU7rT F8fC8xISGkCkV3EHuxM21 9InRvcCIvPjxj w6prg7xhoYi2HwN9VUPbe vHfeAxyEOD2x6ZcXo06I2 9sIHdpZHRoPSIyMCUiIHZ bnPhqaf3nrC3n Ii8+QVMgpOE6pBY0xN7xX iPyRoE7YEgaR005MxTjrA XoGeuaF99oC2KdoCF+PHR eIic2DPFbiHab QH1qgMZlNZqrKx9eTBY0G eBtVhBeXPvbL9EsGMTmqe bqgowseMU2OPSqAUGciT0 2Zn0hmTrzHCPs jUUNzE4mpfgcj9cgbuaaF iZaAABaVHq0AGw6FBEbxS rpQmXyOXW2ZiD2LAL3iZR ylW8jcPiwwgdd nP2bL1TdZKXswnpfPn21i R3eHiMfIpT8EKnzRwg+TU 6AGBmhL1MAYBJHOZFGV8B QKN94H2LyLhq5 KXBbyZbkXM8wzUOaKMzhC z8szIechDetJQ4vMYUlwa tlJOJkdL2eFRDkvNOxdAv gNS0xBSRzyajb d976CxNkUGH8TJSvgQPzY 7VshW6eHnAyUUAaUCTvN1 JrbNKxUPieG358IThsUwU 9LIGktdZjG2Dz MLSaaVmjLeP8y2A9Nv0yZ V3zAo7yOLpqUY88HH38yZ Zwe0O8dUR0G4HyNLUfhjz ssdygpVG8BJZy SPXxvS82wSGgTZyrJd0ts 6Y5j770XIUwZDJqzH76Ve 2qrFllHSJvnYWFfB3ipde kz2edujowAoIf RIZlLVv6KWp3WKFwsBlkZ sWaPHP3PpK4DQB5kQYilP 5luTaevsasoJ3eMrh+MzM xBDNteiS9E4Ax Vyj6VMUlpKcwIQ1fqFReE VmmWd1dzHopkMdiYR5oIR HtahkvKBFilS7kVELvzTD xcHaaHD5yWZXu vtuxw926WiCpECI4RRUok FZoV0YujU5vLqBhUJVtEZ AlE2UruMXyDAkhZ279SSo wAqC2YMSxedIk A9RcLQEjuVmmPdQ8x0W2I e5EUW5QNVV3H4RiHsk1NL TqkQqkVL0gnQEeQWjfCl6 cpVpsuKihTM0r GHAlbcnoAZKaiC2aDWWgh KQktYpnXP3iJODogqbjn4 68YrLpNTC9JUQhyWYeE2C tnC3tJsHoEACy OBUeA3HmtGAhKHydG149A UuuHqO2TMDfaeOnA3GbDY HnbHhiXiZ3u9B7Mt4HzQM qP0UtT2h0F3Kz PjwvdHI+YE39FYObEL30l SZasKYfd1qysHy0JlSeGO MvPSO1jOmfITkel8PnBWX nA49bfTXib5W8 RGLscNtkvYFpVjTclTT5k M2dSXrthcash8udcyhoKz aic0kjst57lG82Q71vMXk pZHRoPSIzMCUi OYHibFemax8luL5vRn0+P MXblCR8xXI3uS3jKwFtLu Z0FKdgD040UmYrgJWlPgd pr0xtu1zvaCq2 SaKgTJNuoiIigMvxYQQ4q 3VhZd50K94eTZokONIvTZ PjBYXgZMAgjIuibf4thL5 wIi8+XW1kk4jt op84fV18jOR+VCQfFKB8u CoqLPvnCABrvY4pJPfzFu U3QFVlCvGhyL80nBXwFCv iLh7mbKrrdDkh JG0fUAIzhyvny948LmEjl 5zmXWZmaJOjFAjtQHO0X4 6yu8Q7QEEwRETuCMF9gFH 9dU2evKnrirqs bGVmdDsgdmVydGljYWwtY FjcN275CKDfnAxcIqRiqC MtS7qmjtCJSB8sYgcotZX +TSEaFHV3yXny QRlyWHTmgX7oYVUnQ5x3Z iVjIbC9YFieS6CckwR1BE HwlJAnSACanUSHaJ7btwi vt7bdudzaQuMr KYPgVBq8ZUf8OYGnfPvpU aCyJHL9GsR3DBT6xXQybW 9xrYrmbpnteQ2hIib+Rkl OOjwvdGQ+PHRk QYE1vXdvRVkrCQRvcP6uA ZEoQ3x9GgZkMoK8ZRupT8 SqpeD6HUZqlJFjUQVgsBI KeI4mscnsr6pi vtooZnIaRTOtIMk2KJm4G INpmSitLnEkFTM6TuO1GY R3sZYraF5lvDokqwexbH6 wOyc+TVJOOjwv dGQ+RSOgELI8eXxqFUzrV KMunD1eBNNoY8y2DpCnMh D0YBwfD0HscyO2YINjyTL lTXEhiJCIoW1a ueqnn0wotkofGxEwAKDbL Ww9BWu0BNUggYgnVcSdPH Z1EuM7VSA6aKDxtP0woJc mpnwowZ5xYdy+ ODT7VFH7UD17OR46U0NwD jwvdGFibGU+PHRhYmxlIH dpZHRoPScxMDAlJyBzdHl vAR2oRe7uLGYl LWN (more content not included)... Normal [facility] C Urineon 01-28-2025 C Urine Urine Culture ordere d as a result of parameters set on specific urine dip and urine microsopic results. Mixed skin, or urogenital daiana. Clinically insignificant [facility] Comment on above: Performed By: #### [id number], [id number] #### [facility] (DEFAULT) [address] [place] [address] Cult,Urineon 01-28-2025 Cult,Urine Specimen Description .BLADDER URINE FROM CYSTOSCOPY Special Requests Site: Urine Culture NO GROWTH Report Status FINAL 01/28/2025 Normal [facility] Comment on above: Performed By: #### B MP #### [address] [address] English Composition Instructor: Alejandro Salazar MD Culture, Urineon 01-28-2025 Microorganism identified Cx Nom (Unsp spec) NO GROWTH [facility] Service comment (Unsp spec) [Interp] Site: Urine [facility] Specimen Description .BLADDER URINE FROM CYSTOSCOPY [facility] Basic Metabolic Profon 01-27 Anion gap [Moles/Vol] 9 mmol/L Normal 9-16 [facility] Comment on above: Performed By: #### B MP #### [address] [address] [employer] Composition Instructor: Alejandro Salazar MD Calcium [Mass/Vol] 8.3 mg/dL Low 8.6-10.4 [facility] Comment on above: Performed By: #### B MP #### [facility] [employer] [address] [place] [address] [employer] Instructor: Alejandro Salazar MD Chloride [Moles/Vol] 108 mmol/L High 98-107 [facility] Comment on above: Performed By: #### B MP #### [facility] [employer] [address] [place] [address] [employer] Instructor: Alejandro Salazar MD CO2 [Moles/Vol] 22 mmol/L Normal 20-31 [facility] Comment on above: Performed By: #### B MP #### [facility] [employer] [address] [place] [address] [employer] Instructor: Alejandro Salazar MD Creatinine [Mass/Vol] 0.7 mg/dL Normal 0.6-0.9 [facility] Comment on above: Performed By: #### B MP #### [address] [address] [employer] Instructor: Alejandro Salazar MD GFR/1.73 sq M.predicted among non-blacks MDRD (S/P/Bld) [Vol rate/Area] mL/min/{1.73_m2} Normal >60 [facility] Comment on above: Result Comment: These [...] secretion. Performed By: #### B MP #### [facility] [employer] [address] [place] [address] [employer] Instructor: Alejandro Salazar MD Glucose [Mass/Vol] 85 mg/dL Normal 74-99 [facility] Comment on above: Performed By: #### B MP #### [address] [address] [employer] Instructor: Alejandro Salazar MD Potassium [Moles/Vol] 3.9 mmol/L Normal 3.7-5.3 [facility] Comment on above: Performed By: #### B MP #### [facility] [employer] [address] [place] [address] [employer] Instructor: Alejandro Salazar MD Sodium [Moles/Vol] 139 mmol/L Normal 136-145 [facility] Comment on above: Performed By: #### B MP #### [facility] [employer] [address] [place] [address] [employer] Instructor: Alejandro Salazar MD Urea nitrogen [Mass/Vol] 11 mg/dL Normal 6-20 [facility] Comment on above: Performed By: #### B #### [facility] [employer] [address] [place] [address] English Com[employer] Instructor: Alejandro Salazar MD Basic metabolic panelon 01-17 Anion gap [Moles/Vol] 9 mmol/L 9 - 16 mmol/L [facility] Calcium [Mass/Vol] 8.3 mg/dL Low 8.6 - 10. 4 mg/dL [facility] Chloride [Moles/Vol] 108 mmol/L High 98 - 10 7 mmol/L [facility] CO2 [Moles/Vol] 22 mmol/L 20 - 31 mmol/L [facility] Creatinine [Mass/Vol] 0.7 mg/dL 0.6 - 0.9 mg/dL [facility] [employer], Glohayley Lundt Rate - PINF [facility] Comment on above: These results are [...] [Mass/Vol] 85 mg/dL 74 - 99 mg/dL [facility] Interpretation and review of laboratory results Abnormal [facility] Potassium [Moles/Vol] 3.9 mmol/L 3.7 - 5.3 mmol/L [facility] Sodium [Moles/Vol] 139 mmol/L 136 - 145 mmol/L [facility] Urea nitrogen [Mass/Vol] 11 mg/dL 6 - 20 mg/dL [facility] CBC auto differentialon 01-17 Basophils (Bld) [#/Vol] 0.04 10*3/uL [facility] Basophils/100 WBC (Bld) 1 % 0 - 2 % [facility] Eosinophils (Bld) [#/Vol] 0.14 10*3/uL [facility] Eosinophils/100 WBC (Bld) 4 % 1 - 4 % [facility] Erythrocyte distribution width (RBC) [Ratio] 12.6 % 11.8 - 14.4 % [facility] Hematocrit (Bld) [Volume fraction] 34.2 % Low 36.3 - 47.1 % [facility] Hemoglobin (Bld) [Mass/Vol] 10.7 g/dL Low 11.9 - 15.1 g/dL [facility] Immature granulocytes (Bld) [#/Vol] [facility] Immature granulocytes/100 WBC (Bld) 0 % 0 [facility] Interpretation and review of laboratory results Abnormal [facility] Lymphocytes/100 WBC (Bld) 55 % High 24 - 43 % [facility] Lymphocytes/100 WBC (Bld) 2.11 % [facility] MCH (RBC) [Entitic mass] 27.1 pg 25.2 - 33.5 pg [facility] MCHC (RBC) [Mass/Vol] 31.3 g/dL 28.4 - 34.8 g/dL [facility] MCV (RBC) [Entitic vol] 86.6 fL 82.6 - 102.9 fL [facility] Monocytes/100 WBC (Bld) 9 % 3 - 12 % [facility] Monocytes/100 WBC (Bld) 0.35 % [facility] Neutrophils/100 WBC (Bld) 31 % Low 36 - 65 % [facility] Nucleated RBC/100 WBC (Bld) [Ratio] 0 % 0.0 per 100 WBC [facility] Platelet mean volume (Bld) [Entitic vol] 9.1 fL 8.1 - 13.5 fL [facility] Platelets (Bld) [#/Vol] 238 10*3/uL [facility] RBC (Bld) [#/Vol] 3.95 10*6/uL 3.95 - 5.1 1 m/uL [facility] Segmented neutrophils/100 WBC (Bld) 1.21 % Low [facility] WBC other (Bld) [#/Vol] 3.9 [facility] CBC with Diffon 01-27-2025 Abs. Basophil 0.04 k/uL Normal 0.00-0.20 [facility] Comment on above: Performed By: #### B MP #### [address] [address] English Composition Instructor: Alejandro Salazar MD Abs.Imm.Granulocyte <0.03 Normal 0.00-0.30 [facility] Comment on above: Performed By: #### B MP #### [place] [address] [employer] Instructor: Alejandro Salazar MD Abs.Neutrophil (Seg) 1.21 k/uL Low 1.50-8.10 [facility] Comment on above: Performed By: #### B MP #### [place] [address] [employer] Instructor: Alejandro Salazar MD Basophils/100 WBC (Bld) 1 % Normal 0-2 [facility] Comment on above: Performed By: #### B MP #### [place] [address] [employer] Instructor: Alejandro Salazar MD Eosinophils (Bld) [#/Vol] 0.14 10*3/uL Normal 0.00-0.44 [facility] Comment on above: Performed By: #### B MP #### [address] [address] English Composition Instructor: Alejandro Salazar MD Eosinophils/100 WBC (Bld) 4 % Normal 1-4 [facility] Comment on above: Performed By: #### B MP #### [address] [address] [employer] Instructor: Alejandro Salazar MD Erythrocyte distribution width (RBC) [Ratio] 12.6 % Normal 11.8-14.4 [facility] Comment on above: Performed By: #### B MP #### [address] [address] English Composition Instructor: Alejandro Slaazar MD Hematocrit (Bld) [Volume fraction] 34.2 % Low 36.3-47.1 [facility] Comment on above: Performed By: #### B MP #### [address] [address] English Composition Instructor: Alejandro Salazar MD Hemoglobin (Bld) [Mass/Vol] 10.7 g/dL Low 11.9-15.1 [facility] Comment on above: Performed By: #### B MP #### [address] [address] English Composition Instructor: Alejandro Salazar MD Immature granulocytes/100 WBC (Bld) 0 % Normal 0 [facility] Comment on above: Performed By: #### B MP #### [address] [address] English Composition Instructor: Alejandro Salazar MD Lymphocytes (Bld) [#/Vol] 2.11 10*3/uL Normal 1.10-3.70 [facility] Comment on above: Performed By: #### B MP #### [address] [address] English Composition Instructor: Alejandro Salazar MD Lymphocytes/100 WBC (Bld) 55 % High 24-43 [facility] Comment on above: Performed By: #### B MP #### [address] [address] English Composition Instructor: Alejandro Salazar MD MCH (RBC) [Entitic mass] 27.1 pg Normal 25.2-33.5 [facility] Comment on above: Performed By: #### B MP #### [address] [address] English Composition Instructor: Alejandro Salazar MD MCHC (RBC) [Mass/Vol] 31.3 g/dL Normal 28.4-34.8 [facility] Comment on above: Performed By: #### B MP #### [address] [address] English Composition Instructor: Alejandro Salazar MD MCV (RBC) [Entitic vol] 86.6 fL Normal 82.6-102.9 [facility] Comment on above: Performed By: #### B MP #### [address] [address] English Composition Instructor: Alejandro Salazar MD Monocytes (Bld) [#/Vol] 0.35 10*3/uL Normal 0.10-1.20 [facility] Comment on above: Performed By: #### B MP #### [address] [address] English Composition Instructor: Alejandro Salazar MD Monocytes/100 WBC (Bld) 9 % Normal 3-12 [facility] Comment on above: Performed By: #### B MP #### [address] [address] English Composition Instructor: Alejandro Salazar MD Neutrophil (Seg) 31 % Low 36-65 [facility] Comment on above: Performed By: #### B MP #### [address] [address] English Composition Instructor: Alejandro Salazar MD NRBC Automated 0.0 per 100 WBC Normal 0.0 [facility] Comment on above: Performed By: #### B MP #### [address] [address] English Composition Instructor: Alejandro Salazar MD Platelet mean volume (Bld) [Entitic vol] 9.1 fL Normal 8.1-13.5 [facility] Comment on above: Performed By: #### B MP #### [facility] [place] [address] English Composition Instructor: Alejandro Salazar MD Platelets (Bld) [#/Vol] 238 10*3/uL Normal 138-453 [facility] Comment on above: Performed By: #### B MP #### [facility] [address] [place] [address] English Composition Instructor: Alejandro Salazar MD RBC (Bld) [#/Vol] 3.95 10*6/uL Normal 3.95-5.11 [facility] Comment on above: Performed By: #### B MP #### [facility] [address] [place] [address] English Composition Instructor: Alejandro Salazar MD WBC (Bld) [#/Vol] 3.9 10*3/uL Normal 3.5-11.3 [facility] Comment on above: Performed By: #### B MP #### [facility] [employer] [address] [place] [address] English Composition Instructor: Alejandro Salazar MD Consent Formson 01-27-2025 Consent Forms [id number]. 00OTGTIFF [facility] Cult,Urineon 01-27-2025 Cult,Urine Specimen Description .URINE Culture NO SIGNIFICANT GROWTH Report Status FINAL 01/27/2025 Normal [facility] Comment on above: Performed By: #### B MP #### [facility] [employer] [address] [place] [address] English Composition Instructor: Alejandro Salazar MD Culture, Urineon 01-27-2025 Microorganism identified Cx Nom (Unsp spec) NO SIGNIFICANT GROWTH [facility] Spec[facility] Description .URINE [facility] FLUORO FOR SURGICAL PROCEDUR ESon 01-27-2025 FLUORO FOR SURGICAL PROCEDURES Radiology exam is complete. No Radiologist dictation. Please follow up with ordering provider. Final result Normal [facility] Guidance-- during surgeryon 01-27-2025 Radiology exam is complete. No Radiologist dictation. Please follow up with ordering provider. MHPN RIS CONSOLIDATED .Auto Diff 1on 01-26-2025 Auto [place] % 10 % Normal 1-12 [facility] Comment on above: Performed By: #### 7 995412, [id number], [id number], 06390069, [id number] #### [facility] (DEFAULT) [address] [place] [address] Baso Abs# 0.0 x10 Normal 0.0-0.2 [facility] Comment on above: Performed By: #### 7 873727, [id number], [id number], 24058859, [id number] #### [facility] (DEFAULT) [address] [place] [address] Basophils/100 WBC (Bld) 0.7 % Normal 0.2-2.0 [facility] Comment on above: Performed By: #### 7 282529, [id number], 6448637638, 22477745, 063200807 #### [facility] (DEFAULT) [address] [place] [address] Eos Abs# 0.1 x10 Normal 0.0-0.4 [facility] Comment on above: Performed By: #### 7 260050, [id number], 1406739080, 01419876, 746544126 #### [facility] (DEFAULT) [address] [place] [address] Eosinophils/100 WBC (Bld) 2.4 % Normal 0.9-4.0 [facility] Comment on above: Performed By: #### 7 782253, [id number], 0837708614, 01030545, 968375977 #### [facility] (DEFAULT) [address] [place] [address] Lymph Abs# 1.8 x10 Normal 1.3-2.9 [facility] Comment on above: Performed By: #### 7 176387, [id number], 4206724252, 79846044, 413715883 #### [facility] (DEFAULT) [address] [place] [address] Lymphocytes/100 WBC (Bld) 38 % Normal 14-48 [facility] Comment on above: Performed By: #### 7 150926, [id number], 8408726340, 87857063, 356976238 #### [facility] (DEFAULT) [address] [place] [address] [place] Abs# 0.5 x10 Normal 0.0-0.8 [facility] Comment on above: Performed By: #### 7 461343, 6186113565, 6628964470, 45363040, 542647998 #### [facility] (DEFAULT) [address] [place] [address] Neut Abs# 2.4 x10 Normal 1.5-9.2 [facility] Comment on above: Performed By: #### 7 770755, [id number], 9169013532, 25359553, 489056004 #### [facility] (DEFAULT) [address] [place] [address] Neutrophils/100 WBC (Bld) 49 % Normal 44-88 [facility] Comment on above: Performed By: #### 7 212466, [id number], 9839900578, 78654239, 990988311 #### [facility] (DEFAULT) [address] [place] [address] Basic Metabolic Panelon 04-1 0 Anion gap [Moles/Vol] 12 mmol/L 9 - 16 mmol/L [facility] Calcium [Mass/Vol] 8.6 mg/dL 8.6 - 10. 4 mg/dL [facility] Chloride [Moles/Vol] 106 mmol/L 98 - 10 7 mmol/L [facility] CO2 [Moles/Vol] 21 mmol/L 20 - 31 mmol/L [facility] Creatinine [Mass/Vol] 0.9 mg/dL 0.6 - 0.9 mg/dL [facility] Est, Glom Filt Rate 87 - PINF [facility] Comment on above: These results are [...] 126 mg/dL High 74 - 99 mg/dL [facility] Interpretation and review of laboratory results Abnormal [facility] Potassium [Moles/Vol] 3.7 mmol/L 3.7 - 5.3 mmol/L [facility] Sodium [Moles/Vol] 139 mmol/L 136 - 145 mmol/L [facility] Urea nitrogen [Mass/Vol] 12 mg/dL 6 - 20 mg/dL [facility] Basic Metabolic Profon 01-26 Anion gap [Moles/Vol] 12 mmol/L Normal 9-16 [facility] Comment on above: Performed By: #### B MP #### [facility] [employer] [address] [place] [address] English Composition Instructor: Alejandro Salazar MD Calcium [Mass/Vol] 8.6 mg/dL Normal 8.6-10.4 [facility] Comment on above: Performed By: #### B MP #### [facility] [employer] [address] [place] [address] English Composition Instructor: Alejandro Salazar MD Chloride [Moles/Vol] 106 mmol/L Normal 98-107 [facility] Comment on above: Performed By: #### B MP #### [facility] [employer] [address] [place] [address] English Composition Instructor: Alejandro Salazar MD CO2 [Moles/Vol] 21 mmol/L Normal 20-31 [facility] Comment on above: Performed By: #### B MP #### [facility] [employer] [address] [place] [address] [id number] English Composition Instructor: Alejandro Salazar MD Creatinine [Mass/Vol] 0.9 mg/dL Normal 0.6-0.9 [facility] Comment on above: Performed By: #### B MP #### [facility] [employer] [address] [place] [address] English Composition Instructor: Alejandro Salazar MD GFR/1.73 sq M.predicted among non-blacks MDRD (S/P/Bld) [Vol rate/Area] 87 mL/min/{1.73_m2} Normal >60 [facility] Comment on above: Result Comment: These [...] secretion. Performed By: #### B MP #### [facility] [employer] [address] [place] [address] English Composition Instructor: Alejandro Salazar MD Glucose [Mass/Vol] 126 mg/dL High 74-99 [facility] Comment on above: Performed By: #### B MP #### [address] [address] English Composition Instructor: Alejandro Salazar MD Potassium [Moles/Vol] 3.7 mmol/L Normal 3.7-5.3 [facility] Comment on above: Performed By: #### B MP #### [facility] [employer] [address] [place] [address] English Composition Instructor: Alejandro Salazar MD Sodium [Moles/Vol] 139 mmol/L Normal 136-145 [facility] Comment on above: Performed By: #### B MP #### [address] [address] English Composition Instructor: Alejandro Salazar MD Urea nitrogen [Mass/Vol] 12 mg/dL Normal 6-20 [facility] Comment on above: Performed By: #### B MP #### [employer] [address] [place] [address] English Composition Instructor: Alejandro Salazar MD [facility] 01-26-2025 Erythrocyte distribution width (RBC) [Ratio] 12.7 % 11.8 - 14.4 % [facility] Hematocrit (Bld) [Volume fraction] 38.1 % 36.3 - 47.1 % [facility] Hemoglobin (Bld) [Mass/Vol] 12 g/dL 11.9 - 15.1 g/dL [facility] MCH (RBC) [Entitic mass] 27.9 pg 25.2 - 33.5 pg [facility] MCHC (RBC) [Mass/Vol] 31.5 g/dL 28.4 - 34.8 g/dL [facility] MCV (RBC) [Entitic vol] 88.6 fL 82.6 - 102.9 fL [facility] Nucleated RBC/100 WBC (Bld) [Ratio] 0 % 0.0 per 100 WBC [facility] Platelet mean volume (Bld) [Entitic vol] 9 fL 8.1 - 13.5 fL [facility] Platelets (Bld) [#/Vol] 261 10*3/uL [facility] RBC (Bld) [#/Vol] 4.3 10*6/uL 3.95 - 5.1 1 m/uL [facility] WBC other (Bld) [#/Vol] 5.9 [facility] Erythrocyte distribution width (RBC) [Ratio] 12.7 % Normal 11.8-14.4 [facility] Comment on above: Performed By: #### B MP #### [employer] [address] [place] [address] English Composition Instructor: Alejandro Salazar MD Hematocrit (Bld) [Volume fraction] 38.1 % Normal 36.3-47.1 [facility] Comment on above: Performed By: #### B MP #### [employer] [address] [place] [address] English Composition Instructor: Alejandro Salazar MD Hemoglobin (Bld) [Mass/Vol] 12.0 g/dL Normal 11.9-15.1 [facility] Comment on above: Performed By: #### B MP #### [address] [address] English Composition Instructor: Alejandro Salazar MD MCH (RBC) [Entitic mass] 27.9 pg Normal 25.2-33.5 [facility] Comment on above: Performed By: #### B MP #### [address] [address] English Composition Instructor: Alejandro Salazar MD MCHC (RBC) [Mass/Vol] 31.5 g/dL Normal 28.4-34.8 [facility] Comment on above: Performed By: #### B MP #### [address] [address] English Composition Instructor: Alejandro Salazar MD MCV (RBC) [Entitic vol] 88.6 fL Normal 82.6-102.9 [facility] Comment on above: Performed By: #### B MP #### [address] [address] English Composition Instructor: Alejandro Salazar MD NRBC Automated 0.0 per 100 WBC Normal 0.0 [facility] Comment on above: Performed By: #### B MP #### [address] [address] English Composition Instructor: Alejandro Salazar MD Platelet mean volume (Bld) [Entitic vol] 9.0 fL Normal 8.1-13.5 [facility] Comment on above: Performed By: #### B MP #### [address] [address] English Composition Instructor: Alejandro Salazar MD Platelets (Bld) [#/Vol] 261 10*3/uL Normal 138-453 [facility] Comment on above: Performed By: #### B MP #### [address] [address] English Composition Instructor: Alejandro Salazar MD RBC (Bld) [#/Vol] 4.30 10*6/uL Normal 3.95-5.11 [facility] Comment on above: Performed By: #### B MP #### [address] [address] English Composition Instructor: Alejandro Salazar MD WBC (Bld) [#/Vol] 5.9 10*3/uL Normal 3.5-11.3 [facility] Comment on above: Performed By: #### B MP #### [address] [address] English Composition Instructor: Alejandro Salazar MD CBC w/ Auto Diffon Erythrocyte distribution width (RBC) [Ratio] 13.6 % Normal 11.5-15.0 [facility] Comment on above: Performed By: #### 7 004406, [id number], 4521972626, 54624155, 461040634 #### [facility] (DEFAULT) [address] [place] [address] Hematocrit (Bld) [Volume fraction] 37.0 % Normal 33.7-40.4 [facility] Comment on above: Performed By: #### 7 058135, [id number], 9685409646, 65922222, 917548510 #### [facility] (DEFAULT) [address] [place] [address] Hemoglobin (Bld) [Mass/Vol] 12.7 g/dL Normal 11.3-15.9 [facility] Comment on above: Performed By: #### 7 895310, 0535630992, 1740873085, 35185695, 950617396 #### [facility] (DEFAULT) [address] [place] [address] Man Diff? Auto Invalid Interpretation Code [facility] Comment on above: Performed By: #### 7 801857, 4380143308, 9331338137, 97041899, 876057136 #### [facility] (DEFAULT) [address] [place] [address] MCH (RBC) [Entitic mass] 29 pg Normal 24-34 [facility] Comment on above: Performed By: #### 7 709471, 2737466441, 9898935776, 02347330, 993822625 #### [facility] (DEFAULT) [address] [place] [address] MCHC (RBC) [Mass/Vol] 34 g/dL Normal 26-37 [facility] Comment on above: Performed By: #### 7 913301, 0436853837, 4775703671, 29038960, 986017395 #### [facility] (DEFAULT) [address] [place] [address] MCV (RBC) [Entitic vol] 84 fL Normal 81-100 [facility] Comment on above: Performed By: #### 7 206059, 6808952450, 1952914883, 19707188, 785888841 #### [facility] (DEFAULT) [address] [place] [address] Platelet 287 x10 Normal 138-427 [facility] Comment on above: Performed By: #### 7 670395, 0340277498, 8481699052, 60334395, 459103775 #### [facility] (DEFAULT) [address] [place] [address] Platelet mean volume (Bld) [Entitic vol] 7.3 fL Normal 6.3-10.2 [facility] Comment on above: Performed By: #### 7 885045, 4267645235, 0570558412, 17479720, 506829213 #### [facility] (DEFAULT) [address] [place] [address] RBC 4.39 x10 Normal 3.70-5.30 [facility] Comment on above: Performed By: #### 7 850405, 2252389391, 4528311845, 02677654, 660841478 #### [facility] (DEFAULT) [address] [place] [address] WBC 4.8 x10 Normal 3.5-10.5 [facility] Comment on above: Performed By: #### 7 333858, 5354979254, 6062171411, 26962574, 012119241 #### [facility] (DEFAULT) [address] [place] [address] CMP Standardon 01-26-2025 eGFR Non AA >60 Invalid Interpretation Code [facility] Comment on above: Performed By: #### 7 283788, 8953703644, 1284634220, 54201761, 339992004 #### [facility] (DEFAULT) [address] [place] [address] eGFR AA >60 Invalid Interpretation Code [facility] Comment on above: Performed By: #### 7 874114, 0331403173, 3005760215, 34825144, 876302313 #### [facility] (DEFAULT) [address] [place] [address] Albumin [Mass/Vol] 3.7 g/dL Normal 3.5-5.0 [facility] Comment on above: Performed By: #### 7 337195, 3088102164, 2260895589, 96403739, 928291926 #### [facility] (DEFAULT) [address] [place] [address] Albumin/Globulin [Mass ratio] 1.0 {ratio} Low 1.4-2.6 [facility] Comment on above: Performed By: #### 7 170349, 6642067971, 4504346309, 35400385, 400915241 #### [facility] (DEFAULT) [address] [place] [address] Alk Phos 70 IU/L Normal 32-91 [facility] Comment on above: Performed By: #### 7 768423, 9805037502, 6131238781, 65294249, 640471241 #### [facility] (DEFAULT) [address] [place] [address] ALT [Catalytic activity/Vol] 75.0 U/L High 14.0-54.0 [facility] Comment on above: Performed By: #### 7 414124, 4246301671, 0677513464, 52816067, 111257392 #### [facility] (DEFAULT) [address] [place] [address] AST [Catalytic activity/Vol] 27 U/L Normal 15-41 [facility] Comment on above: Performed By: #### 7 802563, 0470042303, 7810761767, 50073849, 638379251 #### [facility] (DEFAULT) [address] [place] [address] Bili Total 0.7 mg/dL Normal 0.3-1.2 [facility] Comment on above: Performed By: #### 7 425636, 0835532043, 6538810444, 60931143, 548748867 #### [facility] (DEFAULT) [address] [place] [address] Creatinine [Mass/Vol] 0.94 mg/dL Normal 0.60-1.30 [facility] Comment on above: Performed By: #### 7 324111, 6392748778, 3706843884, 68611488, 623470620 #### [facility] (DEFAULT) [address] [place] [address] Globulin (S) [Mass/Vol] 3.5 g/dL Normal 1.5-4.3 [facility] Comment on above: Performed By: #### 7 637368, 7985099563, 8232936494, 35692393, 045834400 #### [facility] (DEFAULT) [address] [place] [address] Osmolality 277 mOsm/L Invalid Interpretation Code [facility] Comment on above: Performed By: #### 7 246330, 6349501387, 2935000514, 58794033, 472788637 #### [facility] (DEFAULT) [address] [place] [address] Protein [Mass/Vol] 7.2 g/dL Normal 6.5-8.1 [facility] Comment on above: Performed By: #### 7 166751, 2777538295, 5967104693, 91280762, 472581239 #### [facility] (DEFAULT) [address] [place] [address] Urea nitrogen [Mass/Vol] 13 mg/dL Normal 8-26 [facility] Comment on above: Performed By: #### 7 593708, 1834764361, 8740695606, 82363646, 143818367 #### [facility] (DEFAULT) [address] [place] [address] Urea nitrogen/Creatinine [Mass ratio] 13.8 mg/mg Normal 4.6-16.2 [facility] Comment on above: Performed By: #### 7 294094, 1760903796, 2534977190, 57224209, 466695253 #### [facility] (DEFAULT) [address] [place] [address] Anion gap [Moles/Vol] 13.6 mmol/L Normal 5.0-19.0 [facility] Comment on above: Performed By: #### 7 868448, 3064643375, 5112734476, 82488054, 089868043 #### [facility] (DEFAULT) [address] [place] [address] Calcium [Mass/Vol] 9.4 mg/dL Normal 8.9-10.3 [facility] Comment on above: Performed By: #### 7 008503, 2959599380, 6128625480, 44311528, 891716140 #### [facility] (DEFAULT) [address] [place] [address] Chloride [Moles/Vol] 104 mmol/L Normal 101-111 [facility] Comment on above: Performed By: #### 7 301101, 5722898030, 1198021102, 87066321, 048725627 #### [facility] (DEFAULT) [address] [place] [address] CO2 [Moles/Vol] 25 mmol/L Normal 21-32 [facility] Comment on above: Performed By: #### 7 946545, 9219997278, 0649290753, 53673292, 693085420 #### [facility] (DEFAULT) [address] [place] [address] Glucose [Mass/Vol] 93.0 mg/dL Normal 74.0-118.0 [facility] Comment on above: Performed By: #### 7 218163, 8299703349, 5089534722, 06234736, 507283120 #### [facility] (DEFAULT) [address] [place] [address] Potassium [Moles/Vol] 3.6 mmol/L Normal 3.6-5.1 [facility] Comment on above: Performed By: #### 7 988939, 6799630309, 6234663810, 97621497, 992922566 #### [facility] (DEFAULT) [address] [place] [address] Sodium [Moles/Vol] 139.0 mmol/L Normal 136.0-144.0 [facility] Comment on above: Performed By: #### 7 706927, 0645492351, 7631867136, 50407155, 076816075 #### [facility] (DEFAULT) [address] [place] [address] [address] Abdomen/Pelvis w/o Contra ston 01-26-2025 CT [...] MD 01/26/25 2:00 pm Technologist: Boogie COLE [facility] ED Note-Nursingon 01-26-2025 ED Note-Nursing Pt stated she was seen in [facility] recently and Dr. Plata is requesting records. Sulfuric Acid Plant Supervisor called [facility] to get records faxed. Stated they would be faxing results over. [facility] Extra Blueon 01-26-2025 Tube Collected Yes Invalid Interpretation Code [facility] Comment on above: Performed By: #### 7 773061, 1065892703, 3459580440, 39933702, 254600848 #### [facility] (DEFAULT) [address] [place] [address] Microscopic Urinalysison Bacteria LM Ql (Urine sed) None None [facility] Casts LM.LPF (Urine sed) [#/Area] 2 TO 5 HYALINE Reference range defined for non-centrifuged specimen. [facility] Epithelial cells LM.HPF (Urine sed) [#/Area] 2 TO 5 [facility] RBC LM.HPF (Urine sed) [#/Area] TOO NUMEROUS TO COUNT [facility] Comment on above: Reference range defi salty for non-centrifuged specimen. WBC LM.HPF (Urine sed) [#/Area] 20 TO 50 [facility] Bon [facility] Test Serum 1on Preg Serum Internal Control OK [facility] Comment on above: Performed By: #### 7 069640, [id number], 5472842711, 86501703, 534776128 #### [facility] (DEFAULT) [address] [place] [address] Test Serum Qual Negative [facility] Comment on above: Performed By: #### 7 183716, 2691929973, 5628452885, 67878286, 387447772 #### [facility] (DEFAULT) [address] [place] [address] Stone Analysison 01-26-2025 Calculi description See Note [facility] Comment on above: Result Comment: (NOT E) Specimen consists of one rondon sample. The total weight is less than 2 mg. Performed By: #### A STONE #### [employer] [address] [place] [address] [id number] English Composition Instructor: Mane Tolbert MD Composition See Note [facility] Comment on above: Result Comment: (NOT [...] composition determined by FTIR analysis. Performed By: [facility] [address] [place] [address] Sander And Buffer: Jorge Melendrez MD, PhD CLIA Number: [id number] Performed By: #### A STONE #### [employer] [address] [place] [address] English Composition Instructor: Mane Tolbert MD Mass See Note [facility] Comment on above: Result Comment: (NOT E) Sample mass < 2 mg. Small sample size prevents accurate weight determination. Performed By: #### A STONE #### [address] [address] English Composition Instructor: Mane Tolbert MD Transfer Noteon 01-26-2025 Transfer Note Patient requires transfer to [facility] for a diagnosis of hydronephrosis. 1527- Kylie from [facility], Tamiko Mercedes NP paged, hospitalist speaks to Dr. Plata, accepts, top gun is open. 1539- Called [facility], yarn salvager Austin gave 20 minute ETA. 1547- [facility] arrives 1550- [facility] calls, bed assignment given, room 321 bed 2, report number [id number] 1610- [facility] departs [Electronically Signed on: 01/26/2025 16:28 EDT] Beth Rodriguez RN [Verified on: 01/26/2025 16:28 EDT] Beth Rodriguez RN 1630- Dr. Plata signs physician note, this note was faxed to [facility] at fax number [phone]. [Electronically Signed on: 01/26/2025 16:31 EDT] Beth Rodriguez RN Normal [facility] UA [id number] 01-26-2025 UA Bacteria Trace Normal [facility] Comment on above: Order Comment: Urina lysis Microscopic order added on by [employer] Expert Rules system. Performed By: #### 7 [id number], [id number], [id number], [id number], [id number] #### [facility] (DEFAULT) [address] [place] [address] UA Comment. See Comment Invalid Interpretation Code [facility] Comment on above: Order Comment: Urina lysis Microscopic order added on by Discern Expert Rules system. Result Comment: 4+ S ulfa Crystals present Performed By: #### 7 [id number], [id number], [id number], [id number], [id number] #### [facility] (DEFAULT) [address] [place] [address] UA RBC Gross Blood [facility] Comment on above: Order Comment: Urina lysis Microscopic order added on by Discern Expert Rules system. Performed By: #### 7 [id number], [id number], [id number], [id number], [id number] #### [facility] (DEFAULT) [address] [place] [address] UA Squam Epi Moderate Normal [facility] Comment on above: Order Comment: Urina lysis Microscopic order added on by [employer] Expert Rules system. Performed By: #### 7 [id number], [id number], [id number], [id number], [id number] #### [facility] (DEFAULT) [address] [place] [address] UA WBC 3-5 Normal [facility] Comment on above: Order Comment: Urina lysis Microscopic order added on by [employer] Expert Rules system. Performed By: #### 7 456374, [id number], [id number], [id number], [id number] #### [facility] (DEFAULT) [address] [place] [address] UA w Culture if Ind Standard on 01-26-2025 Breakpoint UA [facility] Comment on above: Performed By: #### 7 415215, [id number], [id number], [id number], [id number] #### [facility] (DEFAULT) [address] [place] [address] Color (U) Red Normal [facility] Comment on above: Result Comment: Test cannot be satisfactorily determined due to intensely colored urine. Parameters which will be affected are: GLU, BRAIN, URO, KET, BLO, PRO, NIT, LISSA, SG, AND pH. Performed By: #### 7 240230, [id number], [id number], [id number], [id number] #### [facility] (DEFAULT) [address] [place] [address] Culture? Yes Normal [facility] Comment on above: Result Comment: Resu lt created by rule GL_MAGR_ADD_UA_CULT Result created by rule GL_MAGR_ADD_UA_CULT1 Performed By: #### 7 267908, [id number], [id number], [id number], [id number] #### [facility] (DEFAULT) [address] [place] [address] Glucose (U) [Mass/Vol] Negative Normal [facility] Comment on above: Performed By: #### 7 416298, [id number], [id number], [id number], [id number] #### [facility] (DEFAULT) [address] [place] [address] Ketones Ql (U) Negative Normal [facility] Comment on above: Performed By: #### 7 392328, [id number], [id number], [id number], [id number] #### [facility] (DEFAULT) [address] [place] [address] Micro? Indicated Invalid Interpretation Code [facility] Comment on above: Result Comment: Resu lt created by rule GL_MAGR_ADD_UA_MICRO Performed By: #### 7 047343, [id number], [id number], [id number], [id number] #### [facility] (DEFAULT) [address] [place] [address] UA Bilirubin SMALL Abnormal [facility] Comment on above: Performed By: #### 7 922736, [id number], [id number], [id number], [id number] #### [facility] (DEFAULT) [address] [place] [address] UA Blood LARGE Abnormal NEGATIVE [facility] Comment on above: Performed By: #### 7 346580, [id number], [id number], [id number], [id number] #### [facility] (DEFAULT) [address] [place] [address] UA Clarity CLOUDY Abnormal CLEAR [facility] Comment on above: Performed By: #### 7 674330, [id number], [id number], [id number], [id number] #### [facility] (DEFAULT) [address] [place] [address] UA Leuk Est MODERATE Abnormal NEGATIVE [facility] Comment on above: Performed By: #### 7 937480, [id number], [id number], [id number], [id number] #### [facility] (DEFAULT) [address] [place] [address] UA Nitrite Negative Normal NEGATIVE [facility] Comment on above: Performed By: #### 7 934550, [id number], [id number], [id number], [id number] #### [facility] (DEFAULT) [address] [place] [address] UA pH 7.0 Normal 5-8 [facility] Comment on above: Performed By: #### 7 287892, [id number], [id number], [id number], [id number] #### [facility] (DEFAULT) [address] [place] [address] UA Protein 100 Abnormal NEGATIVE [facility] Comment on above: Performed By: #### 7 246144, [id number], [id number], [id number], [id number] #### [facility] (DEFAULT) [address] [place] [address] UA Spec Grav 1.020 Normal 1.001-1.035 [facility] Comment on above: Performed By: #### 7 330302, [id number], [id number], [id number], [id number] #### [facility] (DEFAULT) [address] [place] [address] UA Urobilinogen 0.2 mg/dL Normal 0.2-1.0 [facility] Comment on above: Performed By: #### 7 215726, [id number], [id number], [id number], [id number] #### [facility] (DEFAULT) [address] [place] [address] Urine Source Clean Catch Normal [facility] Comment on above: Performed By: #### 7 985212, [id number], [id number], [id number], [id number] #### [facility] (DEFAULT) [address] [place] [address] UA w/Reflex Cultureon 2024 Bilirubin, SemiQt,Ur Negative Normal NEG [facility] Comment on above: Performed By: #### U AX, UMICAO #### [facility] [address] [place] [address] English Composition Instructor: Alejandro Salazar MD Blood, Urine LARGE Abnormal NEG [facility] Comment on above: Performed By: #### U AX, UMICAO #### [facility] [address] [place] [address] English Composition Instructor: Alejandro Salazar MD Clarity (U) Cloudy Abnormal CLEAR [facility] Comment on above: Performed By: #### U AX, UMICAO #### [facility] [employer] [address] [place] [address] English Composition Instructor: Alejandro Salazar MD Color (U) [place] Abnormal YEL [facility] Comment on above: Result Comment: INTE RPRET WITH CAUTION DUE TO INTENSE COLOR OF URINE. Performed By: #### U AX, UMICAO #### [facility] [address] [place] [address] English Composition Instructor: Alejandro Salazar MD Glucose Ql (U) Negative Normal NEG [facility] Comment on above: Performed By: #### U AX, UMICAO #### [facility] [address] [place] [address] English Composition Instructor: Alejandro Salazar MD Ketones Ql (U) Negative Normal NEG [facility] Comment on above: Performed By: #### U AX, UMICAO #### [facility] [address] [place] [address] English Composition Instructor: Alejandro Salazar MD Leukocyte esterase Test strip Ql (U) MODERATE Abnormal NEG [facility] Comment on above: Performed By: #### U AX, UMICAO #### [facility] [place] [address] English Composition Instructor: Alejandro Salazar MD Nitrite,Ur Negative Normal NEG [facility] Comment on above: Performed By: #### U AX, UMICAO #### [facility] [address] [place] [address] English Composition Instructor: Alejandro Salazar MD PH,Ur 6.5 Normal 5.0-8.0 [facility] Comment on above: Performed By: #### U AX, UMICAO #### [facility] [address] [place] [address] English Composition Instructor: Alejandro Salazar MD Protein Ql (U) 2+ mg/dL Abnormal NEG [facility] Comment on above: Performed By: #### U AX UMICAO #### [facility] [employer] [address] [place] [address] English Composition Instructor: Alejandro Salazar MD Spec. [place],Ur 1.016 Normal 1.005-1.030 [facility] Comment on above: Performed By: #### U AX UMICAO #### [facility] [address] [place] [address] English Composition Instructor: Alejandro Salazar MD Urobilinogen,Ur Normal Normal 0.0-1.0 [facility] Comment on above: Performed By: #### U AX, UMICAO #### [facility] [address] [place] [address] English Composition Instructor: Alejandro Salazar MD Urinalysis with Reflex to Cu ltureon 01-26-2025 Bilirubin Ql (U) Negative NEGATIVE [facility] Clarity (U) Cloudy Abnormal Clear [facility] Color (U) [place] Abnormal Yellow [facility] Comment on above: INTERPRET WITH CAUTI ON DUE TO INTENSE COLOR OF URINE. Glucose Test strip (U) [Mass/Vol] Negative NEGATIVE mg/dL [facility] Hemoglobin Auto test strip Ql (U) LARGE Abnormal NEGATIVE [facility] Interpretation and review of laboratory results Abnormal [facility] Ketones (U) [Mass/Vol] Negative NEGATIVE mg/dL [facility] Leukocyte esterase Test strip Ql (U) MODERATE Abnormal NEGATIVE [facility] Nitrite Ql (U) Negative NEGATIVE [facility] pH (U) 6.5 [pH] 5.0 - 8.0 [facility] Protein (U) [Mass/Vol] 2+ Abnormal NEGATIVE mg/dL [facility] Specific gravity (U) [Rel density] 1.016 1.005 - 1.030 [facility] Urobilinogen Qn (U) Normal 0.0 - 1. 0 EU/dL [facility] Urinalysis,Microon 5 Bacteria None Normal NONE [facility] Comment on above: Performed By: #### U AX, UMICAO #### [facility] [employer] [address] [place] [address] English Composition Instructor: Alejandro Salazar MD Casts 2 TO 5 HYALINE Normal 0-8 [facility] Comment on above: Result Comment: Refe rence range defined for non-centrifuged specimen. Performed By: #### U AX, UMICAO #### [facility] [address] [place] [address] English Composition Instructor: Alejandro Salazar MD Epithelial cells LM Ql (Urine sed) 2 TO 5 Normal 0-5 [facility] Comment on above: Performed By: #### U AX, UMICAO #### [facility] [address] [place] [address] English Composition Instructor: Alejandro Salazar MD Urine RBC's TOO NUMEROUS TO COUNT Normal 0-4 [facility] Comment on above: Result Comment: Refe rence range defined for non-centrifuged specimen. Performed By: #### U AX, UMICAO #### [facility] [address] [place] [address] English Composition Instructor: Alejandro Salazar MD Urine WBC's 20 TO 50 Normal 0-5 [facility] Comment on above: Performed By: #### U AX, UMFERCHOO #### [address] [address] English Composition Instructor: Alejandro Salazar MD Cult,Urineon 01-23-2025 Cult,Urine Specimen Description .BLADDER URINE FROM CYSTOSCOPY Special Requests Site: Urine Culture NO GROWTH Report Status FINAL 01/23/2025 Normal [facility] Comment on above: Performed By: #### U RC #### [address] [address] English Composition Instructor: Alejandro Salazar MD Basic Metabolic Profon 01-22 Anion gap [Moles/Vol] 12 mmol/L Normal 9-16 [facility] Comment on above: Performed By: #### B MP #### [address] [address] English Composition Instructor: Alejandro Salazar MD Calcium [Mass/Vol] 8.4 mg/dL Low 8.6-10.4 [facility] Comment on above: Performed By: #### B MP #### [address] [address] English Composition Instructor: Alejandro Salazar MD Chloride [Moles/Vol] 107 mmol/L Normal 98-107 [facility] Comment on above: Performed By: #### B MP #### [address] [address] English Composition Instructor: Alejandro Salazar MD CO2 [Moles/Vol] 21 mmol/L Normal 20-31 [facility] Comment on above: Performed By: #### B MP #### [address] [address] English Composition Instructor: Alejandro Salazar MD Creatinine [Mass/Vol] 0.7 mg/dL Normal 0.6-0.9 [facility] Comment on above: Performed By: #### B MP #### [facility] [address] [place] [address] [id number] English Composition Instructor: Alejandro Salazar MD GFR/1.73 sq M.predicted among non-blacks MDRD (S/P/Bld) [Vol rate/Area] mL/min/{1.73_m2} Normal >60 [facility] Comment on above: Result Comment: These [...] secretion. Performed By: #### B MP #### [facility] [address] [place] [address] English Composition Instructor: Alejandro Salazar MD Glucose [Mass/Vol] 94 mg/dL Normal 74-99 [facility] Comment on above: Performed By: #### B MP #### [facility] [address] [place] [address] English Composition Instructor: Alejandro Salazar MD Potassium [Moles/Vol] 4.2 mmol/L Normal 3.7-5.3 [facility] Comment on above: Result Comment: Spec imen hemolysis has exceeded the interference as defined by Denise. Value may be falsely increased. Suggest recollection if clinically indicated. Performed By: #### B MP #### [facility] [address] [place] [address] English Composition Instructor: Alejandro Salazar MD Sodium [Moles/Vol] 140 mmol/L Normal 136-145 [facility] Comment on above: Performed By: #### B MP #### [facility] [address] [place] [address] [phone] English Composition Instructor: Alejandro Salazar MD Urea nitrogen [Mass/Vol] 6 mg/dL Normal 6-20 [facility] Comment on above: Performed By: #### B #### [facility] [address] [place] [address] English Composition Instructor: Alejandro Salazar MD Basic metabolic panelon Anion gap [Moles/Vol] 12 mmol/L 9 - 16 mmol/L [facility] Calcium [Mass/Vol] 8.4 mg/dL Low 8.6 - 10. 4 mg/dL [facility] Chloride [Moles/Vol] 107 mmol/L 98 - 10 7 mmol/L [facility] CO2 [Moles/Vol] 21 mmol/L 20 - 31 mmol/L [facility] Creatinine [Mass/Vol] 0.7 mg/dL 0.6 - 0.9 mg/dL [facility] Est, Glohayley Lundt Rate - PINF [facility] Comment on above: These results are [...] [Mass/Vol] 94 mg/dL 74 - 99 mg/dL [facility] Interpretation and review of laboratory results Abnormal [facility] Potassium [Moles/Vol] 4.2 mmol/L 3.7 - 5.3 mmol/L [facility] Comment on above: Specimen hemolysis h as exceeded the interference as defined by Denise. Value may be falsely increased. Suggest recollection if clinically indicated. Sodium [Moles/Vol] 140 mmol/L 136 - 145 mmol/L [facility] Urea nitrogen [Mass/Vol] 6 mg/dL 6 - 20 mg/dL [facility] CBC with Auto Differentialon 01-22-2025 Basophils (Bld) [#/Vol] 0.03 10*3/uL [facility] Basophils/100 WBC (Bld) 1 % 0 - 2 % [facility] Eosinophils (Bld) [#/Vol] [facility] Eosinophils/100 WBC (Bld) 1 % 1 - 4 % [facility] Erythrocyte distribution width (RBC) [Ratio] 12.5 % 11.8 - 14.4 % [facility] Hematocrit (Bld) [Volume fraction] 36.7 % 36.3 - 47.1 % [facility] Hemoglobin (Bld) [Mass/Vol] 11.8 g/dL Low 11.9 - 15.1 g/dL [facility] Immature granulocytes (Bld) [#/Vol] [facility] Immature granulocytes/100 WBC (Bld) 0 % 0 [facility] Interpretation and review of laboratory results Abnormal [facility] Lymphocytes/100 WBC (Bld) 34 % 24 - 43 % [facility] Lymphocytes/100 WBC (Bld) 1.19 % [facility] MCH (RBC) [Entitic mass] 27.6 pg 25.2 - 33.5 pg [facility] MCHC (RBC) [Mass/Vol] 32.2 g/dL 28.4 - 34.8 g/dL [facility] MCV (RBC) [Entitic vol] 85.7 fL 82.6 - 102.9 fL [facility] Monocytes/100 WBC (Bld) 9 % 3 - 12 % [facility] Monocytes/100 WBC (Bld) 0.3 % [facility] Neutrophils/100 WBC (Bld) 55 % 36 - 65 % [facility] Nucleated RBC/100 WBC (Bld) [Ratio] 0 % 0.0 per 100 WBC [facility] Platelet mean volume (Bld) [Entitic vol] 9.1 fL 8.1 - 13.5 fL [facility] Platelets (Bld) [#/Vol] 217 10*3/uL [facility] RBC (Bld) [#/Vol] 4.28 10*6/uL 3.95 - 5.1 1 m/uL [facility] Segmented neutrophils/100 WBC (Bld) 1.96 % [facility] WBC other (Bld) [#/Vol] 3.5 Bon [facility] Bon [facility] CBC with Diffon 01-22-2025 Abs. Basophil 0.03 k/uL Normal 0.00-0.20 [facility] Comment on above: Performed By: #### C DP #### [address] [address] English Composition Instructor: Alejandro Salazar MD Abs. Eosinophil <0.03 Normal 0.00-0.44 [facility] Comment on above: Performed By: #### C DP #### [address] [address] English Composition Instructor: Alejandro Salazar MD Abs.Imm.Granulocyte <0.03 Normal 0.00-0.30 [facility] Comment on above: Performed By: #### C DP #### [address] [address] English Composition Instructor: Alejandro Salazar MD Abs.Neutrophil (Seg) 1.96 k/uL Normal 1.50-8.10 [facility] Comment on above: Performed By: #### C DP #### [address] [address] English Composition Instructor: Alejandro Salazar MD Basophils/100 WBC (Bld) 1 % Normal 0-2 [facility] Comment on above: Performed By: #### C DP #### [address] [address] English Composition Instructor: Alejandro Salazar MD Eosinophils/100 WBC (Bld) 1 % Normal 1-4 [facility] Comment on above: Performed By: #### C DP #### [address] [address] English Composition Instructor: Alejandro Salazar MD Erythrocyte distribution width (RBC) [Ratio] 12.5 % Normal 11.8-14.4 [facility] Comment on above: Performed By: #### C DP #### [address] [address] English Composition Instructor: Alejandro Salazar MD Hematocrit (Bld) [Volume fraction] 36.7 % Normal 36.3-47.1 [facility] Comment on above: Performed By: #### C DP #### [address] [address] English Composition Instructor: Alejandro Salazar MD Hemoglobin (Bld) [Mass/Vol] 11.8 g/dL Low 11.9-15.1 [facility] Comment on above: Performed By: #### C DP #### [address] [address] English Composition Instructor: Alejandro Salazar MD Immature granulocytes/100 WBC (Bld) 0 % Normal 0 [facility] Comment on above: Performed By: #### C DP #### [address] [address] English Composition Instructor: Alejandro Salazar MD Lymphocytes (Bld) [#/Vol] 1.19 10*3/uL Normal 1.10-3.70 [facility] Comment on above: Performed By: #### C DP #### [address] [address] English Composition Instructor: Alejandro Salazar MD Lymphocytes/100 WBC (Bld) 34 % Normal 24-43 [facility] Comment on above: Performed By: #### C DP #### [address] [address] English Composition Instructor: Alejandro Salazar MD MCH (RBC) [Entitic mass] 27.6 pg Normal 25.2-33.5 [facility] Comment on above: Performed By: #### C DP #### [address] [address] English Composition Instructor: Alejandro Salazar MD MCHC (RBC) [Mass/Vol] 32.2 g/dL Normal 28.4-34.8 [facility] Comment on above: Performed By: #### C DP #### [address] [address] English Composition Instructor: Alejandro Salazar MD MCV (RBC) [Entitic vol] 85.7 fL Normal 82.6-102.9 [facility] Comment on above: Performed By: #### C DP #### [place] [address] English Composition Instructor: Alejandro Salazar MD Monocytes (Bld) [#/Vol] 0.30 10*3/uL Normal 0.10-1.20 [facility] Comment on above: Performed By: #### C DP #### [place] [address] English Composition Instructor: Alejandro Salazar MD Monocytes/100 WBC (Bld) 9 % Normal 3-12 [facility] Comment on above: Performed By: #### C DP #### [address] [address] English Composition Instructor: Alejandro Salazar MD Neutrophil (Seg) 55 % Normal 36-65 [facility] Comment on above: Performed By: #### C DP #### [place] [address] English Composition Instructor: Alejandro Salazar MD NRBC Automated 0.0 per 100 WBC Normal 0.0 [facility] Comment on above: Performed By: #### C DP #### [place] [address] English Composition Instructor: Alejandro Salazar MD Platelet mean volume (Bld) [Entitic vol] 9.1 fL Normal 8.1-13.5 [facility] Comment on above: Performed By: #### C DP #### [facility] [address] [place] [address] English Composition Instructor: Alejandro Salazar MD Platelets (Bld) [#/Vol] 217 10*3/uL Normal 138-453 [facility] Comment on above: Performed By: #### C DP #### [facility] [address] [place] [address] English Composition Instructor: Alejandro Salazar MD RBC (Bld) [#/Vol] 4.28 10*6/uL Normal 3.95-5.11 [facility] Comment on above: Performed By: #### C DP #### [facility] [address] [place] [address] English Composition Instructor: Alejandro Salazar MD WBC (Bld) [#/Vol] 3.5 10*3/uL Normal 3.5-11.3 [facility] Comment on above: Performed By: #### C DP #### [facility] [address] [place] [address] English Composition Instructor: Alejandro Salazar MD FLUORO FOR SURGICAL PROCEDUR ESon 01-22-2025 FLUORO FOR SURGICAL PROCEDURES Radiology exam is complete. No Radiologist dictation. Please follow up with ordering provider. Final result Normal [facility] Guidance-- during surgeryon 01-22-2025 Radiology exam is complete. No Radiologist dictation. Please follow up with ordering provider. PN RIS CONSOLIDATED Lactic Acidon 01-22-2025 Lactic Acid, Whole Blood 1 mmol/L 0.7 - 2.1 mmol/L [facility] Lactic Acid,Whole Bl 1.0 mmol/L Normal 0.7-2.1 [facility] Comment on above: Performed By: #### L ACTIC #### [facility] [address] [place] [address] English Composition Instructor: Alejandro Salazar MD PREVIOUS SPECIMENon 01-23-20 25 [facility] Urine Cultureon 01-21-2025 Bacteria identified Cx Nom (U) ORGANISM: Escherichia coli (O:ESCCOL) Richardson Count >100,000 Aerobic ANASTASIA Charge (NMIC56) ---- [...] RESISTANT TO ALL B-LACTAM DRUGS. PERFORMED BY: [place] [address] PATHOLOGIST [employer] DAV[employer] TIERNEY M.D. Normal [facility] Comment on above: Performed By: #### C UU #### [address] [place] VOIDING URETHROCYSTOGRAM S AND Ion 01-17-2025 [place] VOIDING URETHROCYSTOGRAM S AND I EXAMINATION: VOIDING CYSTO URETHROGRAM 01/17/2025 7:55 am COMPARISON: None. HISTORY: ORDERING SYSTEM PROVIDED HISTORY: VUR (vesicoureteric reflux) TECHNOLOGIST PROVIDED HISTORY: Is the patient ?->No Reason for Exam: frequent UTI, kidney stones FLUOROSCOPY DOSE AND TYPE: Radiation Exposure Index: DAP 184.02oXbyj2, FINDINGS: 600 mL of Cystografin was instilled [...] Casey Sharma MD 01/17/25 Final result Normal [facility] [place] VOIDING URETHROCYSTOGRAM S&Ion 01-17-2025 1. No evidence for vesicoureteric reflux. 2. Small postvoid residual. [facility] RIS CONSOLIDATED EXAMINATION: VOIDING CYSTO URETHROGRAM 01/17/2025 7:55 am COMPARISON: None. HISTORY: ORDERING SYSTEM PROVIDED HISTORY: VUR (vesicoureteric reflux) TECHNOLOGIST PROVIDED HISTORY: Is the patient ?->No Reason for Exam: frequent UTI, kidney stones FLUOROSCOPY DOSE AND TYPE: Radiation Exposure Index: DAP 184.40fFdws5, FINDINGS: 600 mL of Cystografin was instilled [...] DOSE AND TYPE: Radiation Exposure Index: DAP 184.41lEleg3, FINDINGS: 600 mL of Cystografin was instilled [...] for vesicoureteric reflux. 2. Small postvoid residual. [facility] Radiology Study observation (narrative) [facility] [place] VOIDING URETHROCYSTOGRAM S&IOrdered By: Casey Sharma on 01-17-2025 [facility] Work Phone: NM KIDNEY W FLOW AND [...] Glen Perez MD 01/16/25 Final result Normal [facility] Urine Cultureon 12-02-2024 Bacteria identified Cx Nom (U) 30,000 colonies/ml mixed bacterial skin contaminants 2 Days PERFORMED BY: [place] [address] PATHOLOGIST [employer] DAV[employer] TIERNEY M.D. Normal [facility] Comment on above: Performed By: #### C UU #### [address] Urine cultureOrdered By: Vicente Snyder on 12-02-2024 Bacteria identified Cx Nom (U) Urine culture [facility] Cholesterol [Mass/volume] in Serum or PlasmaOrdered By: Arnulfo Aviles on 04-09-2024 Cholesterol [Mass/Vol] 150 mg/dL 140-200 [facility] Comment on above: Chol less than 200 m g/dl low riskChol 201-239 mg/dl borderline riskChol 240 mg/dl and greater high risk Cholesterol in LDL Calc [Mas s/Vol]Ordered By: Arnulfo Aviles on 04-09-2024 Cholesterol in LDL [Mass/Vol] 90 mg/dL 0-100 [facility] Comment on above: LDL ATP III CLASSIFI CATIONLDL less than 100 mg/dL OptimalLDL 100-129 mg/dL Near or above optimalLDL 130-159 mg/dL Borderline highLDL 160-189 mg/dL HighLDL greater than 189 mg/dL Very high Cholesterol in VLDL Calc [Ma ss/Vol]Ordered By: Arnulfo Aviles on 04-09-2024 Cholesterol in VLDL [Mass/Vol] 16 mg/dL [facility] Serum or plasma high density lipoprotein (HDL) cholesterol measurementOrdered By: Arnulfo Aviles on 04-09-2024 Cholesterol in HDL [Mass/Vol] 44 mg/dL 23-92 [facility] Comment on above: HDL CHOL ATP-III CLA SSIFICATION Cardiovascular RiskHDL > or equal to 60 mg/dL LOWHDL < 40 mg/dL HIGH Serum or plasma total choles terol/high density lipoprotein (HDL) cholesterol mass ratOrdered By: Arnulfo Aviles on 04-09-2024 Cholesterol.total/Cho lesterol in HDL [Mass ratio] 3.4 {ratio} <5.0 [facility] Thyrotropin [Units/volume] i n Serum or PlasmaOrdered By: Arnulfo Aviles on 04-09-2024 TSH Qn 2.01 m[IU]/L 0.45-5.33 [facility] Triglyceride [Mass/volume] i n Serum or PlasmaOrdered By: Arnulfo Aviles on 04-09-2024 Triglyceride [Mass/Vol] 82 mg/dL 0-149 [facility] Comment on above: TRIG ATP III CLASSIF ICATIONTRIG less than 150 mg/dL NormalTRIG 150-199 mg/dL Borderline highTRIG 200-500 mg/dL High TRIG greater than 500 mg/dL Very highStandard traceable to the Center for Disease Conrtrol and Prevention (CDC) test method. Vitamin D+Metabolites [Mass/ volume] in Serum or PlasmaOrdered By: Arnulfo Aviles on 04-09-2024 Vitamin D+Metabolites [Mass/Vol] 26.2 ng/mL 30-100 [facility] Comment on above: VITAMIN D STATUS 25( [place])VITAMIN D RANGE (ng/mL) Deficient <20 Insufficient 20 to <30Sufficient 30 to 100Reference: José Miguel MF,Jennifer NC, Mady MARTI, et al. Evaluation,treatment, and prevention of vitamin D deficiency; an Endocrine Society clinical practice guideline. JCEM. 2010; 96(7):1911-30. Patient Letter FTon 2023 Patient Letter [facility] December 04, 2023 DIANA BARRIGA [address] [place] [id number] : 1990 Dear Diana, You missed your [...] [facility] [address], [place] [address] [facility] Lab Reportson 06-05-2023 Lab Reports [id number] .00CD:127 [facility] Reminderson 04-24-2023 Reminders - From: Whitney Collier [...] with the results. duplicate message [facility] Operative Reporton Operative Report [id number]#1. 00CD:127 [facility] RAD - MISCon 04-10-2023 RAD - MISC [id number] .00CD:127 [facility] Reportson 04-06-2023 Lab Reports [id number]#1 .00CD:127 [facility] Lab Reports [id number] .00CD:127 [facility] Reportson 03-23-2023 Lab Reports [id number]#1 .00CD:127 [facility] Lab Reports [id number] .00CD:127 Normal [facility] Lab Reports [id number] .00CD:127 Normal [facility] RAD - CT Reporton 03-23-2023 RAD - CT Report [id number] .00CD:127 Normal [facility] RAD - CT Report [id number] .00CD:127 Normal [facility] Ambulatory Visit Summaryon 0 03-20-2023 Ambulatory Visit [...] Where: [facility] [address] [place] [address]- Medications What When Instructions Unchanged olanzapine-samidorpha n [...] b (more content not included)... [facility] Consent for Procedure/Surger yon 03-20-2023 Consent for Procedure/Surgery [id number] .00CD:127 [facility] Patient Educationon 03-20-20 23 Patient Education Nephrology [...] Spinach (cooked), rhubarb, beets, sweet potatoes, and Jamaican chard. ? Peanuts. ? Potato chips, tajik fries, and baked potatoes with skin on. ? Nuts and nut products. ? Chocolate. ? If you regularly take a diuretic medicine, make sure to eat at least 1 or 2 servings of fruits or vegetables that are high in potassium each day. These include: ? Avocado. ? Banana. ? [place], prune, carrot, or tomato juice. ? Baked [...] fish oil, or vitamin B6. ? Take ppja-gfv-cccgjym and prescription medicines only as told by your health care provider. These include supplements. What foods should I limit? Limit your in (more content not included)... Normal [facility] Urology Office/Clinic Noteon 03-20-2023 Urology Office/Clinic Note [...] Lt kidney pain. Did got to the [place] ER. DX'd & treated for UTI. (NEG [...] L. Ox slightly elevated. Pt presented to [facility] ER on 03/06/23 due to L [...] mg qd. SEs discussed. Rx sent to [facility]. -Electrolyte panel 4 weeks to the day [...] MD, URL [facility] [address] [place] [address]- Additional Instructions: schedule R ESWL Patient Education [...] kidney s (more content not included)... Normal [facility] Comment on above: Result Comment: Elec tronically Signed By: Nona RAYGOZA MD\.br\Date and Time Signed: 03/20/23 11:30 EDT\.br\Electronically Co-Signed By: Whitney Collier\.br\Date and Time Co-Signed: 03/20/23 11:28 EDT CBC AUTO DIFFon 02-16-2023 BASO # 0.1 103/ul Normal 0.0-0.1 [facility] Comment on above: Performed By: #### U KJ 24 #### [facility] [address] [address] [address] Ramses Dumas Basophils/100 WBC (Bld) 0.5 % Normal 0.2-2.0 [facility] Comment on above: Performed By: #### U KJ 24 #### [facility] [address] [address] [address] Ramses Dumas EO # 0.0 103/ul Normal 0.0-0.7 [facility] Comment on above: Performed By: #### U KJ 24 #### [facility] [address] [place] [address] Dr. Ramses Dumas Eosinophils/100 WBC (Bld) 0.4 % Critically low 0.9-7.0 [facility] Comment on above: Performed By: #### U KJ 24 #### [facility] [address] [place] [address] Dr. Ramses Dumas Erythrocyte distribution width (RBC) [Ratio] 13.7 % Normal 11.0-15.0 [facility] Comment on above: Performed By: #### U KJ 24 #### [facility] [address] [place] [address] Dr. Ramses Dumas Hematocrit (Bld) [Volume fraction] 45.1 % Normal 36.0-48.0 [facility] Comment on above: Performed By: #### U KJ 24 #### [facility] [address] [place] [address] Dr. Ramses Dumas Hemoglobin (Bld) [Mass/Vol] 14.3 g/dL Normal 12.0-16.0 [facility] Comment on above: Performed By: #### U KJ 24 #### [facility] [address] [place] [address] Dr. Ramses Dumas IG # 0.02 10e3/ul Normal 0.00-0.03 [facility] Comment on above: Performed By: #### U KJ 24 #### [facility] [address] [place] [address] Dr. Ramses Dumas IG % 0.2 % Normal 0.0-0.5 [facility] Comment on above: Performed By: #### U KJ 24 #### [facility] [address] [place] [address] Dr. Ramses Dumas LYMPH # 2.5 103/ul Normal 1.2-3.8 [facility] Comment on above: Performed By: #### U KJ 24 #### [facility] [address] [place] [address] Dr. Ramses Dumas Lymphocytes/100 WBC (Bld) 26.4 % Normal 20.5-60.0 [facility] Comment on above: Performed By: #### U KJ 24 #### [facility] [address] [address] [address] Ramses Dumas MANUAL DIFF REQ NO Normal [facility] Comment on above: Performed By: #### U KJ 24 #### [facility] [address] [place] [address] Dr. Ramses Dumas MCH (RBC) [Entitic mass] 25.6 pg Critically low 26.7-34.0 [facility] Comment on above: Performed By: #### U KJ 24 #### [facility] [address] [place] [address] Dr. Ramses Dumas MCHC (RBC) [Mass/Vol] 31.7 g/dL Normal 29.9-35.2 [facility] Comment on above: Performed By: #### U KJ 24 #### [facility] [address] [place] [address] Dr. Ramses Dumas MCV (RBC) [Entitic vol] 80.7 fL Critically low 81.0-99.0 [facility] Comment on above: Performed By: #### U KJ 24 #### [facility] [address] [place] [address] Dr. Ramses Dumas MONO # 0.7 103/ul Normal 0.3-0.8 [facility] Comment on above: Performed By: #### U KJ 24 #### [facility] [address] [place] [address] Dr. Ramses Dumas Monocytes/100 WBC (Bld) 7.6 % Normal 1.7-12.0 [facility] Comment on above: Performed By: #### U KJ 24 #### [facility] [address] [place] [address] Dr. Ramses Dumas NEUT # 6.1 103/ul Normal 1.4-6.5 [facility] Comment on above: Performed By: #### U KJ 24 #### [facility] [address] [place] [address] Dr. Ramses Dumas Neutrophils/100 WBC (Bld) 64.9 % Normal 43.0-75.0 [facility] Comment on above: Performed By: #### U KJ 24 #### [facility] [address] [address] [address] Ramses Dumas Platelet mean volume (Bld) [Entitic vol] 11.0 fL Normal 9.5-13.5 [facility] Comment on above: Performed By: #### U KJ 24 #### [facility] [address] [address] [address] Ramses Dumas PLT 270 103/ul Normal 150-450 [facility] Comment on above: Performed By: #### U KJ 24 #### [facility] [address] [address] [address] Ramses Dumas RBC 5.59 106/ul Critically high 4.20-5.40 [facility] Comment on above: Performed By: #### U KJ 24 #### [facility] [address] [place] [address] Dr. Ramses Dumas WBC 9.4 103/ul Normal 4.0-11.0 [facility] Comment on above: Performed By: #### U KJ 24 #### [facility] [address] [place] [address] ABD/PELV W CONon [...] FARTUN NOVOA Date: 2023-02-16 18:21 Normal [facility] URINE PROFILEon 3 Bilirubin Ql (U) SMALL Abnormal NEGATIVE [facility] Comment on above: Performed By: #### C MP #### [facility] [address] [place] [address] Dr. Ramses Dumas Clarity (U) CLEAR Normal CLEAR [facility] Comment on above: Performed By: #### C MP #### [facility] [address] [place] [address] Dr. Ramses Dumas Color (U) YELLOW Normal YELLOW [facility] Comment on above: Performed By: #### C MP #### [facility] [address] [place] [address] Dr. Ramses Dumas ERUCARLOS ENRIQUE A micrscopic examination will be performed if indicated. Normal [facility] Comment on above: Performed By: #### C MP #### [facility] [address] [place] [address] Dr. Ramses Dumas Glucose Ql (U) Negative Normal NEGATIVE [facility] Comment on above: Performed By: #### C MP #### [facility] [address] [place] [address] Dr. Ramess Dumas Hemoglobin Ql (U) Negative Normal NEGATIVE [facility] Comment on above: Performed By: #### C MP #### [facility] [address] [place] [address] Dr. Ramses Dumas Ketones Ql (U) 40 mg/dl Abnormal NEGATIVE [facility] Comment on above: Performed By: #### C MP #### [facility] [address] [place] [address] Dr. Ramses Dumas LEUKOCYTES SMALL Abnormal NEGATIVE [facility] Comment on above: Performed By: #### C MP #### [facility] [address] [place] [address] Dr. Ramses Dumas Nitrite Ql (U) Negative Normal NEGATIVE [facility] Comment on above: Performed By: #### C MP #### [facility] [address] [place] [address] Dr. Ramses Dumas pH (U) 7.0 [pH] Normal 5-9 [facility] Comment on above: Performed By: #### C MP #### [facility] [address] [place] [address] Dr. Ramses Dumas Protein (U) [Mass/Vol] 30 mg/dL Abnormal NEGATIVE/ TRACE [facility] Comment on above: Performed By: #### C MP #### [facility] [address] [place] [address] Dr. Ramses Dumas SPEC GRAVITY 1.020 Normal 1.005-<=1.02 5 [facility] Comment on above: Performed By: #### C MP #### [facility] [address] [place] [address] Dr. Ramses Dumas UR MICRO IND INDICATED Normal [facility] Comment on above: Performed By: #### C MP #### [facility] [address] [place] [address] Dr. Ramses Dumas Urobilinogen Qn (U) 4 {Lucero'U}/dL Abnormal 0.2 - 1.0 [facility] Comment on above: Performed By: #### C MP #### [facility] [address] [place] [address] Dr. Ramses Dumas LIPASEon 02-16-2023 Lipase [Catalytic activity/Vol] 67.0 U/L Critically low 73.0-393.0 [facility] Comment on above: Performed By: #### U RCX #### [facility] [address] [address] [address] Ramses Dumas LIVER PROFILEon 02-16-2023 Albumin [Mass/Vol] 4.1 g/dL Normal 3.4-5.0 [facility] Comment on above: Performed By: #### U RCX #### [facility] [address] [place] [address] Dr. Ramses Dumas Albumin/Globulin [Mass ratio] 1.0 {ratio} Normal [facility] Comment on above: Performed By: #### U RCX #### [facility] [address] [address] [address] Ramses Dumas ALP [Catalytic activity/Vol] 85 U/L Normal 46-116 [facility] Comment on above: Performed By: #### U RCX #### [facility] [address] [place] [address] Dr. Ramses Dumas ALT [Catalytic activity/Vol] 61 U/L Critically high 14-59 [facility] Comment on above: Performed By: #### U RCX #### [facility] [address] [place] [address] Dr. Ramses Dumas AST [Catalytic activity/Vol] 43 U/L Critically high 15-37 [facility] Comment on above: Performed By: #### U RCX #### [facility] [address] [place] [address] Dr. Ramses Dumas BILI, CONJUGATED 0.1 mg/dL Normal 0.0-0.2 [facility] Comment on above: Performed By: #### U RCX #### [facility] [address] [place] [address] Dr. Ramses Dumas Bilirubin [Mass/Vol] 0.7 mg/dL Normal 0.2-1.0 [facility] Comment on above: Performed By: #### U RCX #### [facility] [address] [place] [address] Dr. Ramses Dumas Globulin (S) [Mass/Vol] 4.2 g/dL Normal [facility] Comment on above: Performed By: #### U RCX #### [facility] [address] [address] [address] Ramses Dumas Protein [Mass/Vol] 8.3 g/dL Critically high 6.4-8.2 [facility] Comment on above: Performed By: #### U RCX #### [facility] [address] [address] [address] Ramses Dumas URon 02-16-2023 , QUAL Negative Normal NEGATIVE [facility] Comment on above: Performed By: #### C MP #### [facility] [address] [place] [address] Dr. Ramses Dumas PROF CHEM 8 (BAS METB)on Anion gap [Moles/Vol] 14.2 mmol/L Normal [facility] Comment on above: Performed By: #### U RCX #### [facility] [address] [place] [address] Dr. Ramses Dumas Calcium [Mass/Vol] 9.5 mg/dL Normal 8.5-10.1 [facility] Comment on above: Performed By: #### U RCX #### [facility] [address] [address] [address] Ramses Dumas Chloride [Moles/Vol] 102 mmol/L Normal 98-107 [facility] Comment on above: Performed By: #### U RCX #### [facility] [address] [place] [address] Dr. Ramses Dumas CO2 [Moles/Vol] 27.5 mmol/L Normal 21.0-32.0 [facility] Comment on above: Performed By: #### U RCX #### [facility] [address] [place] [address] Dr. Ramses Dumas Creatinine [Mass/Vol] 0.71 mg/dL Normal 0.55-1.02 [facility] Comment on above: Performed By: #### U RCX #### [facility] [address] [place] [address] Dr. Ramses Dumas EGFR-AF BOTSWANAN >60 Normal >=60 [facility] Comment on above: Performed By: #### U RCX #### [facility] [address] [address] [address] Ramses Dumas EGFR-NON AF BOTSWANAN >60 Normal >=60 [facility] Comment on above: Performed By: #### U RCX #### [facility] [address] [address] [address] Ramses Dumas Glucose [Mass/Vol] 90 mg/dL Normal 74-106 [facility] Comment on above: Performed By: #### U RCX #### [facility] [address] [address] [address] Ramses Dumas Potassium [Moles/Vol] 3.7 mmol/L Normal 3.5-5.1 [facility] Comment on above: Performed By: #### U RCX #### [facility] [address] [place] [address] Dr. Ramses Dumas Sodium [Moles/Vol] 140 mmol/L Normal 136-145 [facility] Comment on above: Performed By: #### U RCX #### [facility] [address] [place] [address] Dr. Ramses Dumas Urea nitrogen [Mass/Vol] 6.0 mg/dL Critically low 7.0-18.0 [facility] Comment on above: Performed By: #### U RCX #### [facility] [address] [place] [address] Dr. Ramses Dumas Urea nitrogen/Creatinine [Mass ratio] 8.5 mg/mg Normal [facility] Comment on above: Performed By: #### U RCX #### [facility] [address] [place] [address] Dr. Ramses Dumas URINE MICROSCOPIC ONLYon BACTERIA NONE SEEN Normal NONE SEEN [facility] Comment on above: Performed By: #### U KJ 24 #### [facility] [address] [place] [address] Dr. Ramses Dumas Bacteria identified Cx Nom (U) NOT INDICATED Normal [facility] Comment on above: Performed By: #### U KJ 24 #### [facility] [address] [place] [address] Dr. Ramses Dumas CAST NONE SEEN Normal NONE SEEN [facility] Comment on above: Performed By: #### U KJ 24 #### [facility] [address] [place] [address] Dr. Ramses Dumas Crystals LM Nom (Urine sed) NONE SEEN Normal NONE SEEN [facility] Comment on above: Performed By: #### U KJ 24 #### [facility] [address] [place] [address] Dr. Ramses Dumas Epithelial cells LM Ql (Urine sed) FEW Abnormal NONE SEEN /RARE [facility] Comment on above: Performed By: #### U KJ 24 #### [facility] [address] [place] [address] Dr. Ramses Dumas MUCOUS SMALL Abnormal NONE SEEN [facility] Comment on above: Performed By: #### U KJ 24 #### [facility] [address] [place] [address] Dr. Ramses Dumas RBC NONE SEEN Abnormal 0-2 [facility] Comment on above: Performed By: #### U KJ 24 #### [facility] [address] [place] [address] Dr. Ramses Dumas WBC 0-2 Abnormal NONE SEEN [facility] Comment on above: Performed By: #### U KJ 24 #### [facility] [address] [place] [address] Dr. Ramses Dumas PAP ACOG PANEL 2: 30 to 65on 02-10-2023 . . Normal [facility] Comment on above: Result Comment: Perf ormed at: WB Performed By: #### U RCX #### [facility] [address] [place] [address] Dr. Ramses Dumas Age Gdln ACOG Testing 30-65 Normal [facility] Comment on above: Performed By: #### U RCX #### [facility] [address] [place] [address] Dr. Ramses Dumas DIAGNOSIS: Comment Normal [facility] Comment on above: Result Comment: NEGA TIVE FOR INTRAEPITHELIAL LESION OR MALIGNANCY. REACTIVE CELLULAR CHANGES AND/OR REPAIR ARE PRESENT. Performed at: WB Performed By: #### U RCX #### [facility] [address] [address] [address] Ramses Dumas Electronically signed by: Comment Normal [facility] Comment on above: Result Comment: Chelsey Boston MD, Pathologist Performed at: WB Performed By: #### U RCX #### [facility] [address] [address] [address] Ramses Dumas HPV Aptima Negative Normal Negative [facility] Comment on above: Result Comment: This nucleic acid amplification test detects fourteen high-risk HPV types (16,18,31,33,35,39,45,51,52,56,58,59,66,68) without differentiation. Performed at: =G Performed By: #### U RCX #### [facility] [address] [place] [address] Dr. Ramses Dumas HPV Genotype Reflex Comment Normal [facility] Comment on above: Result Comment: Crit eria not met, HPV Genotype not performed. Performed at: WB Performed By: #### U RCX #### [facility] [address] [place] [address] Dr. Ramses Dumas Methodology: Comment Normal [facility] Comment on above: Result Comment: This liquid based ThinPrep(R) pap test was screened with the use of an image guided system. Performed at: WB Performed By: #### U RCX #### [facility] [address] [place] [address] Dr. Ramses Dumas Note: Comment Normal [facility] Comment on above: Result Comment: [...] WB Performed By: #### U RCX #### [facility] [address] [place] [address] Dr. Ramses Dumas Performed by: Comment Normal [facility] Comment on above: Result Comment: Cuca Briceno, Vending Machine Technician (ASCP) Performed at: WB Performed By: #### U RCX #### [facility] [address] [address] [address] Ramses Dumas Specimen adequacy: Comment Normal [facility] Comment on above: Result Comment: Sati sfactory for evaluation. Endocervical and/or squamous metaplastic cells (endocervical component) are present. Performed at: WB Performed By: #### U RCX #### [facility] [address] [address] [address] Ramses Dumas Lab Reportson 12-29-2022 Lab Reports [id number]:127 Normal [facility] RAD - MISCon 12-21-2022 RAD - MISC [id number]:127 Normal [facility] OXALATE 24HR URINEon 023 Oxalates, Urine 44 mg/L Normal Undefined [facility] Comment on above: Performed By: #### U KJ 24 #### [facility] [address] [place] [address] Dr. Ramses Dumas Oxalates, Urine 24hr 44 mg/24 hr Critically high 4-31 [facility] Comment on above: Performed By: #### U KJ 24 #### [facility] [address] [place] [address] Dr. Ramses Dumas CITRATE URINE 24HRon 023 Citric Acid, U, 24hr 658 mg/24 hr Normal 320-1240 [facility] Comment on above: Result Comment: This test was developed and its performance characteristics determined by [facility]. It has not been cleared or approved by the Food and Drug Administration. Performed By: #### C ITRATU #### [facility] [address] [place] [address] Dr. Ramses Dumas Citric Acid, Urine 658 mg/L Normal Undefined [facility] Comment on above: Performed By: #### C ITRATU #### [facility] [address] [place] [address] Dr. Ramses Dumas MAGNESIUM 24HR URINEon 12-17 Magnesium 24hr Urine 119.0 mg/24 hr Normal 12.0-293.0 [facility] Comment on above: Performed By: #### U RCX #### [facility] [address] [place] [address] Dr. Ramses Dumas Magnesium UR 11.9 mg/dL Normal Not Estab. [facility] Comment on above: Performed By: #### U RCX #### [facility] [address] [place] [address] Dr. Ramses Dumas PHOSPHORUS 24HR URINEon Phosphorus, Urine 81.4 mg/dL Normal Not Estab. [facility] Comment on above: Performed By: #### B LDCX2 #### [facility] [address] [place] [address] Dr. Ramses Dumas Phosphorus, Urine 24hr 814 mg/24 hr Normal 261-1078 [facility] Comment on above: Performed By: #### B LDCX2 #### [facility] [address] [place] [address] Dr. Ramses Dumas PTH INTACTon 12-17-2022 PTH, Intact 46 pg/mL Normal 15-65 [facility] Comment on above: Performed By: #### U RCX #### [facility] [address] [place] [address] Dr. Ramses Dumas URIC ACID 24 HR URINEon Uric Acid, Urine 69.9 mg/dL Normal Not Estab. The [facility] Comment on above: Performed By: #### U KJ 24 #### [facility] [address] [place] [address] Dr. Ramses Dumas Uric Acid, Urine 24hr 699.0 mg/24 hr Normal 173.7-902. 1 [facility] Comment on above: Performed By: #### U KJ 24 #### [facility] [address] [place] [address] Dr. Ramses Dumas BUNon 12-16-2022 Urea nitrogen [Mass/Vol] 7.0 mg/dL Normal 7.0-18.0 [facility] Comment on above: Performed By: #### C BC #### [facility] [address] [place] [address] Dr. Ramses Dumas CALCIUMon 12-16-2022 Calcium [Mass/Vol] 8.8 mg/dL Normal 8.5-10.1 [facility] Comment on above: Performed By: #### C BC #### [facility] [address] [place] [address] Dr. Ramses Dumas CALCIUM 24 HR URINEon 2022 CALC, 24 HR UR 295.0 mg/24 hr Normal 100.0-300.0 [facility] Comment on above: Performed By: #### B LDCX2 #### [facility] [address] [place] [address] Dr. Ramses Dumas UR CALCIUM 29.5 mg/dL Critically high 5.1-21.0 [facility] Comment on above: Performed By: #### B LDCX2 #### [facility] [address] [place] [address] Dr. Ramses Dumas CHLORIDEon 12-16-2022 Chloride [Moles/Vol] 105 mmol/L Normal 98-107 [facility] Comment on above: Performed By: #### C BC #### [facility] [address] [place] [address] Dr. Ramses Dumas CO2on 12-16-2022 CO2 [Moles/Vol] 26.4 mmol/L Normal 21.0-32.0 [facility] Comment on above: Performed By: #### C MP #### [facility] [address] [place] [address] Dr. Ramses Dumas CREA 24 HR URINEon 3 CREA, 24 HR UR 2337.30 mg/24 hr Critically high 800.00 -1,800 .00 [facility] Comment on above: Performed By: #### C VDTBH #### [facility] [address] [place] [address] Dr. Ramses Dumas URINE CREAT 233.73 mg/dL Normal 20.00-300.[address] [facility] Comment on above: Performed By: #### C VDTBH #### [facility] [address] [address] [address] Ramses Dumas CREATININEon 12-16-2022 Creatinine [Mass/Vol] 0.70 mg/dL Normal 0.55-1.02 [facility] Comment on above: Performed By: #### C MP #### [facility] [address] [place] [address] Dr. Ramses Dumas EGFR-AF BOTSWANAN >60 Normal >=60 [facility] Comment on above: Performed By: #### C MP #### [facility] [address] [place] [address] Dr. Ramses Dumas EGFR-NON AF BOTSWANAN >60 Normal >=60 [facility] Comment on above: Performed By: #### C MP #### [facility] [address] [address] [address] Ramses Dumas NAon 12-16-2022 Sodium [Moles/Vol] 139 mmol/L Normal 136-145 [facility] Comment on above: Performed By: #### C MP #### [facility] [address] [place] [address] Dr. Ramses Dumas POTASSIUMon 12-16-2022 Potassium [Moles/Vol] 4.0 mmol/L Normal 3.5-5.1 [facility] Comment on above: Performed By: #### C MP #### [facility] [address] [place] [address] Dr. Ramses Dumas SODIUM 24 HR URINEon 023 NA, 24 HR UR 193 mmol/24 hr Normal 40-220 [facility] Comment on above: Performed By: #### C VDTBH #### [facility] [address] [place] [address] Dr. Ramses Dumas Sodium (U) [Moles/Vol] 193 mmol/L Critically high 30-90 [facility] Comment on above: Performed By: #### C VDTBH #### [facility] [address] [place] [address] Dr. Ramses Dumas UR TOT VOL 1000 ml/24 HR Normal [facility] Comment on above: Performed By: #### C VDTBH #### [facility] [address] [place] [address] Dr. Ramses Dumas Performed By: #### B LDCX2 #### [facility] [address] [place] [address] Dr. Ramses Dumas URIC ACID SERUMon 12-16-2022 Urate [Mass/Vol] 5.6 mg/dL Normal 2.6-6.0 [facility] Comment on above: Performed By: #### C MP #### [facility] [address] [place] [address] Dr. Ramses Dumas XR KUB 1 VIEWon [...] JENNIFER GATES Date: 2022-12-15 08:26 Normal [facility] CBC AUTO DIFFon 11-07-2022 BASO # 0.0 103/ul Normal 0.0-0.1 [facility] Comment on above: Performed By: #### U RCX #### [facility] [address] [place] [address] Dr. Ramses Dumas Basophils/100 WBC (Bld) 0.7 % Normal 0.2-2.0 [facility] Comment on above: Performed By: #### U RCX #### [facility] [address] [place] [address] Dr. Ramses Dumas EO # 0.1 103/ul Normal 0.0-0.7 [facility] Comment on above: Performed By: #### U RCX #### [facility] [address] [place] [address] Dr. Ramses Dumas Eosinophils/100 WBC (Bld) 1.9 % Normal 0.9-7.0 [facility] Comment on above: Performed By: #### U RCX #### [facility] [address] [place] [address] Dr. Ramses Dumas Erythrocyte distribution width (RBC) [Ratio] 13.6 % Normal 11.0-15.0 [facility] Comment on above: Performed By: #### U RCX #### [facility] [address] [place] [address] Dr. Ramses Dumas Hematocrit (Bld) [Volume fraction] 37.3 % Normal 36.0-48.0 [facility] Comment on above: Performed By: #### U RCX #### [facility] [address] [place] [address] Dr. Ramses Dumas Hemoglobin (Bld) [Mass/Vol] 12.2 g/dL Normal 12.0-16.0 [facility] Comment on above: Performed By: #### U RCX #### [facility] [address] [place] [address] Dr. Ramses Dumas IG # 0.02 10e3/ul Normal 0.00-0.03 [facility] Comment on above: Performed By: #### U RCX #### [facility] [address] [place] [address] Dr. Ramses Dumas IG % 0.3 % Normal 0.0-0.5 [facility] Comment on above: Performed By: #### U RCX #### [facility] [address] [place] [address] Dr. Ramses Dumas LYMPH # 2.3 103/ul Normal 1.2-3.8 [facility] Comment on above: Performed By: #### U RCX #### [facility] [address] [place] [address] Dr. Ramses Dumas Lymphocytes/100 WBC (Bld) 39.6 % Normal 20.5-60.0 [facility] Comment on above: Performed By: #### U RCX #### [facility] [address] [place] [address] Dr. Ramses Dumas MANUAL DIFF REQ NO Normal [facility] Comment on above: Performed By: #### U RCX #### [facility] [address] [address] [address] Ramses Dumas MCH (RBC) [Entitic mass] 26.4 pg Critically low 26.7-34.0 [facility] Comment on above: Performed By: #### U RCX #### [facility] [address] [place] [address] Dr. Ramses Dumas MCHC (RBC) [Mass/Vol] 32.7 g/dL Normal 29.9-35.2 [facility] Comment on above: Performed By: #### U RCX #### [facility] [address] [place] [address] Dr. Ramses Dumas MCV (RBC) [Entitic vol] 80.7 fL Critically low 81.0-99.0 [facility] Comment on above: Performed By: #### U RCX #### [facility] [address] [place] [address] Dr. Ramses Dumas MONO # 0.5 103/ul Normal 0.3-0.8 [facility] Comment on above: Performed By: #### U RCX #### [facility] [address] [place] [address] Dr. Ramses Dumas Monocytes/100 WBC (Bld) 8.0 % Normal 1.7-12.0 [facility] Comment on above: Performed By: #### U RCX #### [facility] [address] [place] [address] Dr. Ramses Dumas NEUT # 2.9 103/ul Normal 1.4-6.5 [facility] Comment on above: Performed By: #### U RCX #### [facility] [address] [place] [address] Dr. Ramses Dumas Neutrophils/100 WBC (Bld) 49.5 % Normal 43.0-75.0 [facility] Comment on above: Performed By: #### U RCX #### [facility] [address] [place] [address] Dr. Ramses Dumas Platelet mean volume (Bld) [Entitic vol] 9.0 fL Critically low 9.5-13.5 [facility] Comment on above: Performed By: #### U RCX #### [facility] [address] [place] [address] Dr. Ramses Dumas PLT 337 103/ul Normal 150-450 [facility] Comment on above: Performed By: #### U RCX #### [facility] [address] [place] [address] Dr. Ramses Dumas RBC 4.62 106/ul Normal 4.20-5.40 [facility] Comment on above: Performed By: #### U RCX #### [facility] [address] [place] [address] Dr. Ramses Dumas WBC 5.9 103/ul Normal 4.0-11.0 [facility] Comment on above: Performed By: #### U RCX #### [facility] [address] [place] [address] Dr. Ramses Dumas POINT OF CARE GLUCOSEon 10-20 Glucose [Mass/Vol] 115 mg/dL Critically high 74-106 [facility] Comment on above: Performed By: #### C VDTBH #### [facility] [address] [place] [address] Dr. Ramses Dumas PREG QUANT HCGon 11-07-2022 HCG QUANT <1 Normal [facility] Comment on above: Performed By: #### C VDTBH #### [facility] [address] [place] [address] Dr. Ramses Dumas HCG RANGE SEE BELOW Normal [facility] Comment on above: Result Comment: 5-50 0.2-1 WEEK 50-500 1-2 WEEKS 100-5,000 2-3 WEEKS 500-10,000 3-4 WEEKS 1,000-50,000 4-5 WEEKS 10,000-100,000 5-6 WEEKS 15,000-200,000 6-8 WEEKS 10,000-100,000 2-3 MONTHS Performed By: #### C VDTBH #### [facility] [address] [place] [address] Dr. Ramses Dumas US PELVIS AND TRANSVAGon [...] cm right ovarian simple cyst Normal [facility] CBC AUTO DIFFon 11-03-2022 BASO # 0.1 103/ul Normal 0.0-0.1 [facility] Comment on above: Performed By: #### U RCX #### [facility] [address] [address] [address] Ramses Dumas Basophils/100 WBC (Bld) 0.8 % Normal 0.2-2.0 [facility] Comment on above: Performed By: #### U RCX #### [facility] [address] [address] [address] Ramses Dumas EO # 0.1 103/ul Normal 0.0-0.7 [facility] Comment on above: Performed By: #### U RCX #### [facility] [address] [address] [address] Ramses Dumas Eosinophils/100 WBC (Bld) 1.4 % Normal 0.9-7.0 [facility] Comment on above: Performed By: #### U RCX #### [facility] [address] [address] [address] Ramses Dumas Erythrocyte distribution width (RBC) [Ratio] 13.4 % Normal 11.0-15.0 [facility] Comment on above: Performed By: #### U RCX #### [facility] [address] [place] [address] Dr. Ramses Dumas Hematocrit (Bld) [Volume fraction] 38.8 % Normal 36.0-48.0 [facility] Comment on above: Performed By: #### U RCX #### [facility] [address] [place] [address] Dr. Ramses Dumas Hemoglobin (Bld) [Mass/Vol] 12.7 g/dL Normal 12.0-16.0 [facility] Comment on above: Performed By: #### U RCX #### [facility] [address] [place] [address] Dr. Ramses Dumas IG # 0.01 10e3/ul Normal 0.00-0.03 [facility] Comment on above: Performed By: #### U RCX #### [facility] [address] [place] [address] Dr. Ramses Dumas IG % 0.1 % Normal 0.0-0.5 [facility] Comment on above: Performed By: #### U RCX #### [facility] [address] [place] [address] Dr. Ramses Dumas LYMPH # 1.9 103/ul Normal 1.2-3.8 [facility] Comment on above: Performed By: #### U RCX #### [facility] [address] [place] [address] Dr. Ramses Dumas Lymphocytes/100 WBC (Bld) 26.4 % Normal 20.5-60.0 [facility] Comment on above: Performed By: #### U RCX #### [facility] [address] [place] [address] Dr. Ramses Dumas MANUAL DIFF REQ NO Normal [facility] Comment on above: Performed By: #### U RCX #### [facility] [address] [place] [address] Dr. Ramses Dumas MCH (RBC) [Entitic mass] 26.3 pg Critically low 26.7-34.0 [facility] Comment on above: Performed By: #### U RCX #### [facility] [address] [address] [address] Ramses Dumas MCHC (RBC) [Mass/Vol] 32.7 g/dL Normal 29.9-35.2 [facility] Comment on above: Performed By: #### U RCX #### [facility] [address] [address] [address] Ramses Dumas MCV (RBC) [Entitic vol] 80.5 fL Critically low 81.0-99.0 [facility] Comment on above: Performed By: #### U RCX #### [facility] [address] [address] [address] Ramses Dumas MONO # 0.6 103/ul Normal 0.3-0.8 [facility] Comment on above: Performed By: #### U RCX #### [facility] [address] [address] [address] Ramses Dumas Monocytes/100 WBC (Bld) 8.2 % Normal 1.7-12.0 [facility] Comment on above: Performed By: #### U RCX #### [facility] [address] [place] [address] Dr. Ramses Dumas NEUT # 4.5 103/ul Normal 1.4-6.5 [facility] Comment on above: Performed By: #### U RCX #### [facility] [address] [address] [address] Ramses Dumas Neutrophils/100 WBC (Bld) 63.1 % Normal 43.0-75.0 [facility] Comment on above: Performed By: #### U RCX #### [facility] [address] [address] [address] Ramses Dumas Platelet mean volume (Bld) [Entitic vol] 8.9 fL Critically low 9.5-13.5 [facility] Comment on above: Performed By: #### U RCX #### [facility] [address] [place] [address] Dr. Ramses Dumas PLT 340 103/ul Normal 150-450 [facility] Comment on above: Performed By: #### U RCX #### [facility] [address] [address] [address] Ramses Dumas RBC 4.82 106/ul Normal 4.20-5.40 [facility] Comment on above: Performed By: #### U RCX #### [facility] [address] [address] [address] Ramses Dumas WBC 7.1 103/ul Normal 4.0-11.0 [facility] Comment on above: Performed By: #### U RCX #### [facility] [address] [address] [address] Ramses Dumas Covid-19 PCR ([facility])on 10-19 SARS-CoV-2 (COVID-19) RNA FRANCESCA+probe Ql (Unsp spec) Not detected Normal NOT DETECTED [facility] Comment on above: Result Comment: This test is not yet approved or cleared by the [place] FDA. When there are no FDA-approved or cleared tests available, and other criteria are met, FDA can make tests available under an emergency access mechanism called an Emergency Use Authorization (EUA). The EUA for this test is supported by the [place] of Health and Human Service's (HHS's) declaration [...] SARS-CoV-2. Performed By: #### U RCX #### [facility] [address] [place] [address] Dr. Ramses Dumas FREE T4on 11-03-2022 Free T4 [Mass/Vol] 0.99 ng/dL Normal 0.76-1.46 [facility] Comment on above: Performed By: #### B LDCX2 #### [facility] [address] [place] [address] Dr. Ramses Dumas GLYCOHEMOGLOBIN A1Con 2022 ADA RECOMMENDATION SEE BELOW Normal [facility] Comment on above: Result Comment: ADA RECOMMENDED LIMIT 4.0 - 6.0 ADA THERAPEUTIC TARGET < 7.0 ACTION SUGGESTED > 7.0 Performed By: #### C VDTBH #### [facility] [address] [place] [address] Dr. Ramses Dumas Glucose [Mass/Vol] 117 mg/dL Normal [facility] Comment on above: Performed By: #### C VDTBH #### [facility] [address] [place] [address] Dr. Ramses Dumas HbA1c (Bld) [Mass fraction] 5.7 % Normal 4.5-6.2 [facility] Comment on above: Performed By: #### C VDTBH #### [facility] [address] [place] [address] Dr. Ramses Dumas PROTIMEon 11-03-2022 INR Coag (PPP) [Relative time] 0.97 {INR} Normal [facility] Comment on above: Performed By: #### U KJ 24 #### [facility] [address] [place] [address] Dr. Ramses Dumas INR GUIDELINES SEE BELOW Normal [facility] Comment on above: Result Comment: TOÑA RED INR: 2.0 - 3.0 CONDITIONS NOT LISTED BELOW 2.5 - 3.5 FOR PROSTHETIC HEART VALVE REPLACEMENT 2.5 - 3.5 RECURRENT THROMBOSIS Performed By: #### U KJ 24 #### [facility] [address] [place] [address] Dr. Ramses Dumas PT Coag (PPP) [Time] 10.3 s Normal 9.0-11.6 [facility] Comment on above: Performed By: #### U KJ 24 #### [facility] [address] [place] [address] Dr. Ramses Dumas PTTon 11-03-2022 aPTT Coag (Bld) [Time] 27.7 s Normal 22.3-36.2 [facility] Comment on above: Performed By: #### U KJ 24 #### [facility] [address] [address] [address] Ramses Dumas TSHon 11-03-2022 TSH 0.667 uIU/mL Normal 0.358-3.740 [facility] Comment on above: Performed By: #### C VDTBH #### [facility] [address] [address] [address] Ramses Dumas PREG HCG QUALon 09-18-2022 , QUAL Negative Normal NEGATIVE [facility] Comment on above: Performed By: #### U KJ 24 #### [facility] [address] [address] [address] Ramses Dumas Covid-19 PCR ([facility])on 08-20 SARS-CoV-2 (COVID-19) RNA FRANCESCA+probe Ql (Unsp spec) Not detected Normal NOT DETECTED [facility] Comment on above: Result Comment: This test is not yet approved or cleared by the [place] FDA. When there are no FDA-approved or cleared tests available, and other criteria are met, FDA can make tests available under an emergency access mechanism called an Emergency Use Authorization (EUA). The EUA for this test is supported by the [place] of Health and Human Service's (HHS's) declaration [...] SARS-CoV-2. Performed By: #### C VDTBH #### [facility] [address] [place] [address] Dr. Ramess Dumas CBC AUTO DIFFon 09-05-2022 BASO # 0.1 103/ul Normal 0.0-0.1 [facility] Comment on above: Performed By: #### B LDCX2 #### [facility] [address] [place] [address] Dr. Ramses Dmuas Basophils/100 WBC (Bld) 0.7 % Normal 0.2-2.0 [facility] Comment on above: Performed By: #### B LDCX2 #### [facility] [address] [place] [address] Dr. Ramses Dumas EO # 0.2 103/ul Normal 0.0-0.7 [facility] Comment on above: Performed By: #### B LDCX2 #### [facility] [address] [place] [address] Dr. Ramses Dumas Eosinophils/100 WBC (Bld) 2.2 % Normal 0.9-7.0 [facility] Comment on above: Performed By: #### B LDCX2 #### [facility] [address] [place] [address] Dr. Ramses Dumas Erythrocyte distribution width (RBC) [Ratio] 13.9 % Normal 11.0-15.0 [facility] Comment on above: Performed By: #### B LDCX2 #### [facility] [address] [place] [address] Dr. Ramses Dumas Hematocrit (Bld) [Volume fraction] 38.8 % Normal 36.0-48.0 [facility] Comment on above: Performed By: #### B LDCX2 #### [facility] [address] [place] [address] Dr. Ramses Dumas Hemoglobin (Bld) [Mass/Vol] 12.6 g/dL Normal 12.0-16.0 [facility] Comment on above: Performed By: #### B LDCX2 #### [facility] [address] [place] [address] Dr. Ramses Dumas IG # 0.03 10e3/ul Normal 0.00-0.03 [facility] Comment on above: Performed By: #### B LDCX2 #### [facility] [address] [place] [address] Dr. Ramses Dumas IG % 0.3 % Normal 0.0-0.5 [facility] Comment on above: Performed By: #### B LDCX2 #### [facility] [address] [place] [address] Dr. Ramses Dumas LYMPH # 2.3 103/ul Normal 1.2-3.8 [facility] Comment on above: Performed By: #### B LDCX2 #### [facility] [address] [place] [address] Dr. Ramses Dumas Lymphocytes/100 WBC (Bld) 21.3 % Normal 20.5-60.0 [facility] Comment on above: Performed By: #### B LDCX2 #### [facility] [address] [place] [address] Dr. Ramses Dumas MANUAL DIFF REQ NO Normal [facility] Comment on above: Performed By: #### B LDCX2 #### [facility] [address] [place] [address] Dr. Ramses Dumas MCH (RBC) [Entitic mass] 26.4 pg Critically low 26.7-34.0 [facility] Comment on above: Performed By: #### B LDCX2 #### [facility] [address] [place] [address] Dr. Ramses Dumas MCHC (RBC) [Mass/Vol] 32.5 g/dL Normal 29.9-35.2 [facility] Comment on above: Performed By: #### B LDCX2 #### [facility] [address] [place] [address] Dr. Ramses Dumas MCV (RBC) [Entitic vol] 81.2 fL Normal 81.0-99.0 [facility] Comment on above: Performed By: #### B LDCX2 #### [facility] [address] [place] [address] Dr. Ramses Dumas MONO # 0.8 103/ul Normal 0.3-0.8 [facility] Comment on above: Performed By: #### B LDCX2 #### [facility] [address] [place] [address] Dr. Ramses Dumas Monocytes/100 WBC (Bld) 7.4 % Normal 1.7-12.0 [facility] Comment on above: Performed By: #### B LDCX2 #### [facility] [address] [place] [address] Dr. Ramses Dumas NEUT # 7.3 103/ul Critically high 1.4-6.5 [facility] Comment on above: Performed By: #### B LDCX2 #### [facility] [address] [place] [address] Dr. Ramses Dumas Neutrophils/100 WBC (Bld) 68.1 % Normal 43.0-75.0 [facility] Comment on above: Performed By: #### B LDCX2 #### [facility] [address] [place] [address] Dr. Ramses Dumas Platelet mean volume (Bld) [Entitic vol] 8.8 fL Critically low 9.5-13.5 [facility] Comment on above: Performed By: #### B LDCX2 #### [facility] [address] [place] [address] Dr. Ramses Dumas PLT 323 103/ul Normal 150-450 [facility] Comment on above: Performed By: #### B LDCX2 #### [facility] [address] [place] [address] Dr. Ramses Dumas RBC 4.78 106/ul Normal 4.20-5.40 [facility] Comment on above: Performed By: #### B LDCX2 #### [facility] [address] [place] [address] Dr. Ramses Dumas WBC 10.7 103/ul Normal 4.0-11.0 [facility] Comment on above: Performed By: #### B LDCX2 #### [facility] [address] [place] [address] Dr. Ramses Dumas CULTURE URINEon 09-05-2022 CULTURE URINE Culture Observations : LIGHT GROWTH OF MIXED GENITAL DAIANA. NO POTENTIAL PATHOGENS SEEN. Normal [facility] Comment on above: Performed By: #### U RCX #### [facility] [address] [place] [address] Dr. Ramses Dumas ER URINE PROFILEon 2 Bilirubin Ql (U) Negative Normal NEGATIVE [facility] Comment on above: Performed By: #### B LDCX2 #### [facility] [address] [place] [address] Dr. Ramses Dumas Clarity (U) CLOUDY Abnormal CLEAR [facility] Comment on above: Performed By: #### B LDCX2 #### [facility] [address] [place] [address] Dr. Ramses Dumas Color (U) YELLOW Normal YELLOW [facility] Comment on above: Performed By: #### B LDCX2 #### [facility] [address] [place] [address] Dr. Ramses DELEON A micrscopic examination will be performed if indicated. Normal [facility] Comment on above: Performed By: #### B LDCX2 #### [facility] [address] [place] [address] Dr. Ramses Dumas Glucose Ql (U) Negative Normal NEGATIVE [facility] Comment on above: Performed By: #### B LDCX2 #### [facility] [address] [place] [address] Dr. Ramses Dumas Hemoglobin Ql (U) LARGE Abnormal NEGATIVE [facility] Comment on above: Performed By: #### B LDCX2 #### [facility] [address] [place] [address] Dr. Ramses Dumas Ketones Ql (U) Negative Normal NEGATIVE [facility] Comment on above: Performed By: #### B LDCX2 #### [facility] [address] [place] [address] Dr. Ramses Dumas LEUKOCYTES SMALL Abnormal NEGATIVE [facility] Comment on above: Performed By: #### B LDCX2 #### [facility] [address] [place] [address] Dr. Ramses Dumas Nitrite Ql (U) Negative Normal NEGATIVE [facility] Comment on above: Performed By: #### B LDCX2 #### [facility] [address] [place] [address] Dr. Ramses Dumas pH (U) 6.0 [pH] Normal 5-9 [facility] Comment on above: Performed By: #### B LDCX2 #### [facility] [address] [place] [address] Dr. Ramses Dumas Protein (U) [Mass/Vol] 100 mg/dL Abnormal NEGATIVE/ TRACE [facility] Comment on above: Performed By: #### B LDCX2 #### [facility] [address] [place] [address] Dr. Ramses Dumas SPEC GRAVITY >=1.030 Abnormal 1.005-<=1.02 5 [facility] Comment on above: Performed By: #### B LDCX2 #### [facility] [address] [place] [address] Dr. Ramses Dumas UR MICRO IND INDICATED Normal [facility] Comment on above: Performed By: #### B LDCX2 #### [facility] [address] [place] [address] Dr. Ramses Dumas Urobilinogen Qn (U) 0.2 {Lucero'U}/dL Normal 0.2 - 1. 0 [facility] Comment on above: Performed By: #### B LDCX2 #### [facility] [address] [place] [address] Dr. Ramses Dumas URon 09-05-2022 , QUAL Negative Normal NEGATIVE [facility] Comment on above: Performed By: #### B LDCX2 #### [facility] [address] [place] [address] Dr. Ramses Dumas PROF CHEM 8 (BAS METB)on Anion gap [Moles/Vol] 11.7 mmol/L Normal [facility] Comment on above: Performed By: #### C MP #### [facility] [address] [place] [address] Dr. Ramses Dumas Calcium [Mass/Vol] 9.1 mg/dL Normal 8.5-10.1 [facility] Comment on above: Performed By: #### C MP #### [facility] [address] [place] [address] Dr. Ramses Dumas Chloride [Moles/Vol] 103 mmol/L Normal 98-107 [facility] Comment on above: Performed By: #### C MP #### [facility] [address] [address] [address] Ramses Dumas CO2 [Moles/Vol] 25.9 mmol/L Normal 21.0-32.0 [facility] Comment on above: Performed By: #### C MP #### [facility] [address] [address] [address] Ramses Dumas Creatinine [Mass/Vol] 0.77 mg/dL Normal 0.55-1.02 [facility] Comment on above: Performed By: #### C MP #### [facility] [address] [address] [address] Ramses Dumas EGFR-AF BOTSWANAN >60 Normal >=60 [facility] Comment on above: Performed By: #### C MP #### [facility] [address] [address] [address] Ramses Dumas EGFR-NON AF BOTSWANAN >60 Normal >=60 [facility] Comment on above: Performed By: #### C MP #### [facility] [address] [address] [address] Ramses Dumas Glucose [Mass/Vol] 124 mg/dL Critically high 74-106 [facility] Comment on above: Performed By: #### C MP #### [facility] [address] [address] [address] Ramses Dumas Potassium [Moles/Vol] 3.6 mmol/L Normal 3.5-5.1 [facility] Comment on above: Performed By: #### C MP #### [facility] [address] [address] [address] Ramses Dumas Sodium [Moles/Vol] 137 mmol/L Normal 136-145 [facility] Comment on above: Performed By: #### C MP #### [facility] [address] [address] [address] Ramses Dumas Urea nitrogen [Mass/Vol] 12.0 mg/dL Normal 7.0-18.0 [facility] Comment on above: Performed By: #### C MP #### [facility] [address] [address] [address] Ramses Dumas Urea nitrogen/Creatinine [Mass ratio] 15.6 mg/mg Normal [facility] Comment on above: Performed By: #### C MP #### [facility] [address] [place] [address] Dr. Ramses Dumas URINE MICROSCOPIC ONLYon AMORPHOUS CRYSTALS RARE Normal [facility] Comment on above: Performed By: #### B LDCX2 #### [facility] [address] [place] [address] Dr. Ramses Dumas BACTERIA TRACE Abnormal NONE SEEN [facility] Comment on above: Performed By: #### B LDCX2 #### [facility] [address] [place] [address] Dr. Ramses Dumas Bacteria identified Cx Nom (U) INDICATED Normal [facility] Comment on above: Performed By: #### B LDCX2 #### [facility] [address] [place] [address] Dr. Ramses Dumas CA OX CRYSTALS RARE Normal [facility] Comment on above: Performed By: #### B LDCX2 #### [facility] [address] [place] [address] Dr. Ramses Dumas CAST NONE SEEN Normal NONE SEEN [facility] Comment on above: Performed By: #### B LDCX2 #### [facility] [address] [place] [address] Dr. Ramses Dumas Crystals LM Nom (Urine sed) SEEN Abnormal NONE SEEN [facility] Comment on above: Performed By: #### B LDCX2 #### [facility] [address] [address] [address] Ramses Dumas Epithelial cells LM Ql (Urine sed) FEW Abnormal NONE SEEN /RARE [facility] Comment on above: Performed By: #### B LDCX2 #### [facility] [address] [place] [address] Dr. Ramses Dumas MUCOUS TRACE Abnormal NONE SEEN [facility] Comment on above: Performed By: #### B LDCX2 #### [facility] [address] [address] [address] Ramses Dumas RBC 50-75 Abnormal 0-2 [facility] Comment on above: Performed By: #### B LDCX2 #### [facility] [address] [place] [address] Dr. Ramses Dumas WBC 20-50 Abnormal NONE SEEN [facility] Comment on above: Performed By: #### B LDCX2 #### [facility] [address] [address] [address] Ramses Dumas YEAST PRESENT Abnormal NONE SEEN [facility] Comment on above: Performed By: #### B LDCX2 #### [facility] [address] [place] [address] Dr. Ramses Dumas US KIDNEYSon 09-05-2022 US [...] GLEN PEREZ Date: 2022-09-05 11:00 Normal [facility] CT ABD/PELVIS WO CONon 08-29 CT [...] ERICKA IGLESIAS Date: 2022-08-29 01:10 Normal [facility] CULTURE URINEon 08-29-2022 CULTURE URINE Culture Observations : LIGHT GROWTH OF MIXED GENITAL DAIANA. NO POTENTIAL PATHOGENS SEEN. Normal [facility] Comment on above: Performed By: #### U RCX #### [facility] [address] [place] [address] Dr. Ramses Dumas CBC AUTO DIFFon 08-28-2022 BASO # 0.1 103/ul Normal 0.0-0.1 [facility] Comment on above: Performed By: #### U RCX #### [facility] [address] [address] [address] Ramses Dumas Basophils/100 WBC (Bld) 0.5 % Normal 0.2-2.0 [facility] Comment on above: Performed By: #### U RCX #### [facility] [address] [place] [address] Dr. Ramses Dumas EO # 0.3 103/ul Normal 0.0-0.7 [facility] Comment on above: Performed By: #### U RCX #### [facility] [address] [address] [address] Ramses Dumas Eosinophils/100 WBC (Bld) 2.3 % Normal 0.9-7.0 [facility] Comment on above: Performed By: #### U RCX #### [facility] [address] [place] [address] Dr. Ramses Dumas Erythrocyte distribution width (RBC) [Ratio] 13.7 % Normal 11.0-15.0 [facility] Comment on above: Performed By: #### U RCX #### [facility] [address] [place] [address] Dr. Ramses Dumas Hematocrit (Bld) [Volume fraction] 36.7 % Normal 36.0-48.0 [facility] Comment on above: Performed By: #### U RCX #### [facility] [address] [place] [address] Dr. Ramses Dumas Hemoglobin (Bld) [Mass/Vol] 12.3 g/dL Normal 12.0-16.0 [facility] Comment on above: Performed By: #### U RCX #### [facility] [address] [place] [address] Dr. Ramses Dumas IG # 0.16 10e3/ul Critically high 0.00-0.03 [facility] Comment on above: Performed By: #### U RCX #### [facility] [address] [place] [address] Dr. Ramses Dumas IG % 1.1 % Critically high 0.0-0.5 [facility] Comment on above: Performed By: #### U RCX #### [facility] [address] [place] [address] Dr. Ramses Dumas LYMPH # 4.6 103/ul Critically high 1.2-3.[address] [facility] Comment on above: Performed By: #### U RCX #### [facility] [address] [place] [address] Dr. Ramses Dumas Lymphocytes/100 WBC (Bld) 31.8 % Normal 20.5-60.0 [facility] Comment on above: Performed By: #### U RCX #### [facility] [address] [place] [address] Dr. Ramses Dumas MANUAL DIFF REQ NO Normal [facility] Comment on above: Performed By: #### U RCX #### [facility] [address] [place] [address] Dr. Ramses Dumas MCH (RBC) [Entitic mass] 26.9 pg Normal 26.7-34.0 [facility] Comment on above: Performed By: #### U RCX #### [facility] [address] [place] [address] Dr. Ramses Dumas MCHC (RBC) [Mass/Vol] 33.5 g/dL Normal 29.9-35.2 [facility] Comment on above: Performed By: #### U RCX #### [facility] [address] [place] [address] Dr. Ramses Dumas MCV (RBC) [Entitic vol] 80.3 fL Critically low 81.0-99.0 [facility] Comment on above: Performed By: #### U RCX #### [facility] [address] [place] [address] Dr. Ramses Dumas MONO # 1.0 103/ul Critically high 0.3-0.8 [facility] Comment on above: Performed By: #### U RCX #### [facility] [address] [place] [address] Dr. Ramses Dumas Monocytes/100 WBC (Bld) 7.0 % Normal 1.7-12.0 [facility] Comment on above: Performed By: #### U RCX #### [facility] [address] [place] [address] Dr. Ramses Dumas NEUT # 8.2 103/ul Critically high 1.4-6.[address] [facility] Comment on above: Performed By: #### U RCX #### [facility] [address] [place] [address] Dr. Ramses Dumas Neutrophils/100 WBC (Bld) 57.3 % Normal 43.0-75.0 [facility] Comment on above: Performed By: #### U RCX #### [facility] [address] [place] [address] Dr. Ramses Dumas Platelet mean volume (Bld) [Entitic vol] 8.6 fL Critically low 9.5-13.5 [facility] Comment on above: Performed By: #### U RCX #### [facility] [address] [place] [address] Dr. Ramses Dumas PLT 395 103/ul Normal 150-450 [facility] Comment on above: Performed By: #### U RCX #### [facility] [address] [place] [address] Dr. Ramses Dumas RBC 4.57 106/ul Normal 4.20-5.40 [facility] Comment on above: Performed By: #### U RCX #### [facility] [address] [place] [address] Dr. Ramses Dumas WBC 14.3 103/ul Critically high 4.0-11.0 [facility] Comment on above: Performed By: #### U RCX #### [facility] [address] [place] [address] Dr. Ramses KUMAR URINE PROFILEon 2 Bilirubin Ql (U) Negative Normal NEGATIVE [facility] Comment on above: Performed By: #### U KJ 24 #### [facility] [address] [place] [address] Dr. Ramses Dumas Clarity (U) CLEAR Normal CLEAR [facility] Comment on above: Performed By: #### U JK 24 #### [facility] [address] [place] [address] Dr. Ramses Dumas Color (U) LT. YELLOW Normal YELLOW [facility] Comment on above: Performed By: #### U KJ 24 #### [facility] [address] [place] [address] Dr. Ramses Dumas ERUAHWalter A micrscopic examination will be performed if indicated. Normal [facility] Comment on above: Performed By: #### U KJ 24 #### [facility] [address] [address] [address] Ramses Dumas Glucose Ql (U) Negative Normal NEGATIVE [facility] Comment on above: Performed By: #### U KJ 24 #### [facility] [address] [place] [address] Dr. Ramses Dumas Hemoglobin Ql (U) LARGE Abnormal NEGATIVE [facility] Comment on above: Performed By: #### U KJ 24 #### [facility] [address] [place] [address] Dr. Ramses Dumas Ketones Ql (U) Negative Normal NEGATIVE [facility] Comment on above: Performed By: #### U KJ 24 #### [facility] [address] [place] [address] Dr. Ramses Dumas LEUKOCYTES MODERATE Abnormal NEGATIVE [facility] Comment on above: Performed By: #### U KJ 24 #### [facility] [address] [place] [address] Dr. Ramses Dumas Nitrite Ql (U) Negative Normal NEGATIVE [facility] Comment on above: Performed By: #### U KJ 24 #### [facility] [address] [place] [address] Dr. Ramses Dumas pH (U) 6.5 [pH] Normal 5-9 [facility] Comment on above: Performed By: #### U KJ 24 #### [facility] [address] [place] [address] Dr. Ramses Dumas Protein (U) [Mass/Vol] 100 mg/dL Abnormal NEGATIVE/ TRACE [facility] Comment on above: Performed By: #### U KJ 24 #### [facility] [address] [place] [address] Dr. Ramses Dumas SPEC GRAVITY 1.020 Normal 1.005-<=1.02 5 [facility] Comment on above: Performed By: #### U KJ 24 #### [facility] [address] [place] [address] Dr. Ramses Dumas UR MICRO IND INDICATED Normal [facility] Comment on above: Performed By: #### U KJ 24 #### [facility] [address] [place] [address] Dr. Ramses Dumas Urobilinogen Qn (U) 0.2 {Lucero'U}/dL Normal 0.2 - 1. 0 [facility] Comment on above: Performed By: #### U KJ 24 #### [facility] [address] [place] [address] Dr. Ramses Dumas PROF 14(COMP METB)on 022 Albumin [Mass/Vol] 3.3 g/dL Critically low 3.4-5.0 [facility] Comment on above: Performed By: #### C MP #### [facility] [address] [place] [address] Dr. Ramses Dumas Albumin/Globulin [Mass ratio] 0.8 {ratio} Normal [facility] Comment on above: Performed By: #### C MP #### [facility] [address] [place] [address] Dr. Ramses Dumas ALP [Catalytic activity/Vol] 108 U/L Normal 46-116 [facility] Comment on above: Performed By: #### C MP #### [facility] [address] [place] [address] Dr. Ramses Dumas ALT [Catalytic activity/Vol] 103 U/L Critically high 14-59 [facility] Comment on above: Performed By: #### C MP #### [facility] [address] [place] [address] Dr. Ramses Dumas Anion gap [Moles/Vol] 6.6 mmol/L Normal [facility] Comment on above: Performed By: #### C MP #### [facility] [address] [place] [address] Dr. Ramses Dumas AST [Catalytic activity/Vol] 21 U/L Normal 15-37 [facility] Comment on above: Performed By: #### C MP #### [facility] [address] [place] [address] Dr. Ramses Dumas Bilirubin [Mass/Vol] 0.2 mg/dL Normal 0.2-1.0 [facility] Comment on above: Performed By: #### C MP #### [facility] [address] [place] [address] Dr. Ramses Dumas Calcium [Mass/Vol] 9.2 mg/dL Normal 8.5-10.1 [facility] Comment on above: Performed By: #### C MP #### [facility] [address] [address] [address] Ramses Dumas Chloride [Moles/Vol] 102 mmol/L Normal 98-107 [facility] Comment on above: Performed By: #### C MP #### [facility] [address] [address] [address] Ramses Dumas CO2 [Moles/Vol] 28.8 mmol/L Normal 21.0-32.0 [facility] Comment on above: Performed By: #### C MP #### [facility] [address] [place] [address] Dr. Ramses Dumas Creatinine [Mass/Vol] 0.92 mg/dL Normal 0.55-1.02 [facility] Comment on above: Performed By: #### C MP #### [facility] [address] [place] [address] Dr. Ramses Dumas EGFR-AF BOTSWANAN >60 Normal >=60 [facility] Comment on above: Performed By: #### C MP #### [facility] [address] [place] [address] Dr. Ramses Dumas EGFR-NON AF BOTSWANAN >60 Normal >=60 [facility] Comment on above: Performed By: #### C MP #### [facility] [address] [place] [address] Dr. Ramses Dumas Globulin (S) [Mass/Vol] 4.1 g/dL Normal [facility] Comment on above: Performed By: #### C MP #### [facility] [address] [address] [address] Ramses Dumas Glucose [Mass/Vol] 114 mg/dL Critically high 74-106 [facility] Comment on above: Performed By: #### C MP #### [facility] [address] [place] [address] Dr. Ramses Dumas Potassium [Moles/Vol] 3.4 mmol/L Critically low 3.5-5.1 [facility] Comment on above: Performed By: #### C MP #### [facility] [address] [address] [address] Ramses Dumas Protein [Mass/Vol] 7.4 g/dL Normal 6.4-8.2 [facility] Comment on above: Performed By: #### C MP #### [facility] [address] [address] [address] Ramses Dumas Sodium [Moles/Vol] 134 mmol/L Critically low 136-145 [facility] Comment on above: Performed By: #### C MP #### [facility] [address] [address] [address] Ramses Dumsa Urea nitrogen [Mass/Vol] 11.0 mg/dL Normal 7.0-18.0 [facility] Comment on above: Performed By: #### C MP #### [facility] [address] [place] [address] Dr. Ramses Dumas Urea nitrogen/Creatinine [Mass ratio] 12.0 mg/mg Normal [facility] Comment on above: Performed By: #### C MP #### [facility] [address] [place] [address] Dr. Ramses Dumas URINE MICROSCOPIC ONLYon BACTERIA MODERATE Abnormal NONE SEEN [facility] Comment on above: Performed By: #### U KJ 24 #### [facility] [address] [place] [address] Dr. Ramses Dumas Bacteria identified Cx Nom (U) INDICATED Normal [facility] Comment on above: Performed By: #### U KJ 24 #### [facility] [address] [place] [address] Dr. Ramses Dumas CAST NONE SEEN Normal NONE SEEN [facility] Comment on above: Performed By: #### U KJ 24 #### [facility] [address] [place] [address] Dr. Ramses Dumas Crystals LM Nom (Urine sed) NONE SEEN Normal NONE SEEN [facility] Comment on above: Performed By: #### U KJ 24 #### [facility] [address] [place] [address] Dr. Ramses Dumas Epithelial cells LM Ql (Urine sed) RARE Normal NONE SEEN /RARE [facility] Comment on above: Performed By: #### U KJ 24 #### [facility] [address] [place] [address] Dr. Ramses Dumas MUCOUS NONE SEEN Normal NONE SEEN [facility] Comment on above: Performed By: #### U KJ 24 #### [facility] [address] [place] [address] Dr. Ramses Dumas RBC 20-50 Abnormal 0-2 [facility] Comment on above: Performed By: #### U KJ 24 #### [facility] [address] [place] [address] Dr. Ramses Dumas WBC 5-10 Abnormal NONE SEEN [facility] Comment on above: Performed By: #### U KJ 24 #### [facility] [address] [place] [address] Dr. Ramses Dumas CULTURE BLOODon 08-25-2022 Microscopic [...] F Tetracycline >=16 R F Normal [facility] Comment on above: Performed By: #### B LDCX2 #### [facility] [address] [place] [address] Dr. Ramses Dumas Microscopic examination of blood, [...] F Tetracycline >=16 R F Normal [facility] Comment on above: Performed By: #### C BC #### [facility] [address] [place] [address] Dr. Ramses Dumas CBC AUTO DIFFon 08-24-2022 BASO # 0.0 103/ul Normal 0.0-0.1 [facility] Comment on above: Performed By: #### C BC #### [facility] [address] [place] [address] Dr. Ramses Dumas Basophils/100 WBC (Bld) 0.1 % Critically low 0.2-2.0 [facility] Comment on above: Performed By: #### C BC #### [facility] [address] [place] [address] Dr. Ramses Dumas EO # 0.0 103/ul Normal 0.0-0.7 [facility] Comment on above: Performed By: #### C BC #### [facility] [address] [place] [address] Dr. Ramses Dumas Eosinophils/100 WBC (Bld) 0.0 % Critically low 0.9-7.0 [facility] Comment on above: Performed By: #### C BC #### [facility] [address] [place] [address] Dr. Ramses Dumas Erythrocyte distribution width (RBC) [Ratio] 13.5 % Normal 11.0-15.0 [facility] Comment on above: Performed By: #### C BC #### [facility] [address] [place] [address] Dr. Ramses Dumas Hematocrit (Bld) [Volume fraction] 33.0 % Critically low 36.0-48.0 [facility] Comment on above: Performed By: #### C BC #### [facility] [address] [address] [address] Ramses Dumas Hemoglobin (Bld) [Mass/Vol] 10.7 g/dL Critically low 12.0-16.0 [facility] Comment on above: Performed By: #### C BC #### [facility] [address] [address] [address] Ramses Dumas IG # 0.04 10e3/ul Critically high 0.00-0.03 [facility] Comment on above: Performed By: #### C BC #### [facility] [address] [place] [address] Dr. Ramses Dumas IG % 0.4 % Normal 0.0-0.5 [facility] Comment on above: Performed By: #### C BC #### [facility] [address] [place] [address] Dr. Ramses Dumas LYMPH # 0.8 103/ul Critically low 1.2-3.8 [facility] Comment on above: Performed By: #### C BC #### [facility] [address] [place] [address] Dr. Ramses Dumas Lymphocytes/100 WBC (Bld) 7.9 % Critically low 20.5-60.0 [facility] Comment on above: Performed By: #### C BC #### [facility] [address] [place] [address] Dr. Ramses Dumas MANUAL DIFF REQ NO Normal [facility] Comment on above: Performed By: #### C BC #### [facility] [address] [place] [address] Dr. Ramses Dumas MCH (RBC) [Entitic mass] 26.5 pg Critically low 26.7-34.0 [facility] Comment on above: Performed By: #### C BC #### [facility] [address] [place] [address] Dr. Ramses Dumas MCHC (RBC) [Mass/Vol] 32.4 g/dL Normal 29.9-35.2 [facility] Comment on above: Performed By: #### C BC #### [facility] [address] [place] [address] Dr. Ramses Dumas MCV (RBC) [Entitic vol] 81.7 fL Normal 81.0-99.0 [facility] Comment on above: Performed By: #### C BC #### [facility] [address] [place] [address] Dr. Ramses Dumas MONO # 0.6 103/ul Normal 0.3-0.8 [facility] Comment on above: Performed By: #### C BC #### [facility] [address] [place] [address] Dr. Ramses Dumas Monocytes/100 WBC (Bld) 6.3 % Normal 1.7-12.0 [facility] Comment on above: Performed By: #### C BC #### [facility] [address] [place] [address] Dr. Ramses Dumas NEUT # 8.6 103/ul Critically high 1.4-6.[address] [facility] Comment on above: Performed By: #### C BC #### [facility] [address] [place] [address] Dr. Ramses Dumas Neutrophils/100 WBC (Bld) 85.3 % Critically high 43.0-75.0 [facility] Comment on above: Performed By: #### C BC #### [facility] [address] [place] [address] Dr. Rmases Dumas Platelet mean volume (Bld) [Entitic vol] 9.1 fL Critically low 9.5-13.5 [facility] Comment on above: Performed By: #### C BC #### [facility] [address] [place] [address] Dr. Ramses Dumas PLT 248 103/ul Normal 150-450 [facility] Comment on above: Performed By: #### C BC #### [facility] [address] [place] [address] Dr. Ramses Dumas RBC 4.04 106/ul Critically low 4.20-5.[address] [facility] Comment on above: Performed By: #### C BC #### [facility] [address] [place] [address] Dr. Ramses Dumas WBC 10.1 103/ul Normal 4.0-11.0 [facility] Comment on above: Performed By: #### C BC #### [facility] [address] [place] [address] Dr. Ramses Dumas CULTURE URINEon 08-24-2022 CULTURE [...] S F Tetracycline >=16 R F Normal [facility] Comment on above: Performed By: #### U RCX #### [facility] [address] [place] [address] Dr. Ramses Dumas PROF 14(COMP METB)on 022 Albumin [Mass/Vol] 2.4 g/dL Critically low 3.4-5.0 [facility] Comment on above: Performed By: #### C VDTBH #### [facility] [address] [place] [address] Dr. Ramses Dumas Albumin/Globulin [Mass ratio] 0.7 {ratio} Normal [facility] Comment on above: Performed By: #### C VDTBH #### [facility] [address] [place] [address] Dr. Ramses Dumas ALP [Catalytic activity/Vol] 95 U/L Normal 46-116 [facility] Comment on above: Performed By: #### C VDTBH #### [facility] [address] [place] [address] Dr. Ramses Dumas ALT [Catalytic activity/Vol] 327 U/L Critically high 14-59 [facility] Comment on above: Performed By: #### C VDTBH #### [facility] [address] [place] [address] Dr. Ramses Dumas Anion gap [Moles/Vol] 8.7 mmol/L Normal [facility] Comment on above: Performed By: #### C VDTBH #### [facility] [address] [place] [address] Dr. Ramses Dumas AST [Catalytic activity/Vol] 165 U/L Critically high 15-37 [facility] Comment on above: Performed By: #### C VDTBH #### [facility] [address] [place] [address] Dr. Ramses Dumas Bilirubin [Mass/Vol] 0.4 mg/dL Normal 0.2-1.0 [facility] Comment on above: Performed By: #### C VDTBH #### [facility] [address] [place] [address] Dr. Ramses Dumas Calcium [Mass/Vol] 8.0 mg/dL Critically low 8.5-10.1 [facility] Comment on above: Performed By: #### C VDTBH #### [facility] [address] [place] [address] Dr. Ramses Dumas Chloride [Moles/Vol] 108 mmol/L Critically high 98-107 [facility] Comment on above: Performed By: #### C VDTBH #### [facility] [address] [place] [address] Dr. Ramses Dumas CO2 [Moles/Vol] 25.3 mmol/L Normal 21.0-32.0 [facility] Comment on above: Performed By: #### C VDTBH #### [facility] [address] [place] [address] Dr. Ramses Dumas Creatinine [Mass/Vol] 0.70 mg/dL Normal 0.55-1.02 [facility] Comment on above: Performed By: #### C VDTBH #### [facility] [address] [place] [address] Dr. Ramses Dumas EGFR-AF BOTSWANAN >60 Normal >=60 [facility] Comment on above: Performed By: #### C VDTBH #### [facility] [address] [place] [address] Dr. Ramses Dumas EGFR-NON AF BOTSWANAN >60 Normal >=60 [facility] Comment on above: Performed By: #### C VDTBH #### [facility] [address] [place] [address] Dr. Ramses Dumas Globulin (S) [Mass/Vol] 3.6 g/dL Normal [facility] Comment on above: Performed By: #### C VDTBH #### [facility] [address] [place] [address] Dr. Ramses Dumas Glucose [Mass/Vol] 160 mg/dL Critically high 74-106 [facility] Comment on above: Performed By: #### C VDTBH #### [facility] [address] [place] [address] Dr. Ramses Dumas Potassium [Moles/Vol] 4.0 mmol/L Normal 3.5-5.1 [facility] Comment on above: Performed By: #### C VDTBH #### [facility] [address] [place] [address] Dr. Ramses Dumas Protein [Mass/Vol] 6.0 g/dL Critically low 6.4-8.2 [facility] Comment on above: Performed By: #### C VDTBH #### [facility] [address] [place] [address] Dr. Ramses Dumas Sodium [Moles/Vol] 138 mmol/L Normal 136-145 [facility] Comment on above: Performed By: #### C VDTBH #### [facility] [address] [place] [address] Dr. Ramses Dumas Urea nitrogen [Mass/Vol] 6.0 mg/dL Critically low 7.0-18.0 [facility] Comment on above: Performed By: #### C VDTBH #### [facility] [address] [place] [address] Dr. Ramses Dumas Urea nitrogen/Creatinine [Mass ratio] 8.6 mg/mg Normal [facility] Comment on above: Performed By: #### C VDTBH #### [facility] [address] [place] [address] Dr. Ramses Dumas CBC AUTO DIFFon 08-23-2022 BASO # 0.0 103/ul Normal 0.0-0.1 [facility] Comment on above: Performed By: #### U RCX #### [facility] [address] [place] [address] Dr. Ramses Dumas Basophils/100 WBC (Bld) 0.2 % Normal 0.2-2.0 [facility] Comment on above: Performed By: #### U RCX #### [facility] [address] [place] [address] Dr. Ramses Dumas EO # 0.0 103/ul Normal 0.0-0.7 [facility] Comment on above: Performed By: #### U RCX #### [facility] [address] [place] [address] Dr. Ramses Dumas Eosinophils/100 WBC (Bld) 0.1 % Critically low 0.9-7.0 [facility] Comment on above: Performed By: #### U RCX #### [facility] [address] [place] [address] Dr. Ramses Dumas Erythrocyte distribution width (RBC) [Ratio] 13.4 % Normal 11.0-15.0 [facility] Comment on above: Performed By: #### U RCX #### [facility] [address] [place] [address] Dr. Ramses Dumas Hematocrit (Bld) [Volume fraction] 34.1 % Critically low 36.0-48.0 [facility] Comment on above: Performed By: #### U RCX #### [facility] [address] [place] [address] Dr. Ramses Dumas Hemoglobin (Bld) [Mass/Vol] 10.9 g/dL Critically low 12.0-16.0 [facility] Comment on above: Performed By: #### U RCX #### [facility] [address] [place] [address] Dr. Ramses Dumas IG # 0.02 10e3/ul Normal 0.00-0.03 [facility] Comment on above: Performed By: #### U RCX #### [facility] [address] [address] [address] Ramses Dumas IG % 0.2 % Normal 0.0-0.5 [facility] Comment on above: Performed By: #### U RCX #### [facility] [address] [address] [address] Ramses Dumas LYMPH # 0.7 103/ul Critically low 1.2-3.8 [facility] Comment on above: Performed By: #### U RCX #### [facility] [address] [address] [address] Ramses Dumas Lymphocytes/100 WBC (Bld) 6.9 % Critically low 20.5-60.0 [facility] Comment on above: Performed By: #### U RCX #### [facility] [address] [address] [address] Ramses Dumas MANUAL DIFF REQ NO Normal [facility] Comment on above: Performed By: #### U RCX #### [facility] [address] [address] [address] Ramses Dumas MCH (RBC) [Entitic mass] 26.1 pg Critically low 26.7-34.0 [facility] Comment on above: Performed By: #### U RCX #### [facility] [address] [address] [address] Ramses Dumas MCHC (RBC) [Mass/Vol] 32.0 g/dL Normal 29.9-35.2 [facility] Comment on above: Performed By: #### U RCX #### [facility] [address] [address] [address] Ramses Dumas MCV (RBC) [Entitic vol] 81.8 fL Normal 81.0-99.0 [facility] Comment on above: Performed By: #### U RCX #### [facility] [address] [address] [address] Ramses Dumas MONO # 0.6 103/ul Normal 0.3-0.8 [facility] Comment on above: Performed By: #### U RCX #### [facility] [address] [address] [address] Ramses Dumas Monocytes/100 WBC (Bld) 5.9 % Normal 1.7-12.0 [facility] Comment on above: Performed By: #### U RCX #### [facility] [address] [address] [address] Ramses Dumas NEUT # 8.2 103/ul Critically high 1.4-6.5 [facility] Comment on above: Performed By: #### U RCX #### [facility] [address] [place] [address] Dr. Ramses Dumas Neutrophils/100 WBC (Bld) 86.7 % Critically high 43.0-75.0 [facility] Comment on above: Performed By: #### U RCX #### [facility] [address] [place] [address] Dr. Ramses Dumas Platelet mean volume (Bld) [Entitic vol] 9.4 fL Critically low 9.5-13.5 [facility] Comment on above: Performed By: #### U RCX #### [facility] [address] [place] [address] Dr. Ramses Dumas PLT 235 103/ul Normal 150-450 [facility] Comment on above: Performed By: #### U RCX #### [facility] [address] [place] [address] Dr. Ramses Dumas RBC 4.17 106/ul Critically low 4.20-5.[address] [facility] Comment on above: Performed By: #### U RCX #### [facility] [address] [place] [address] Dr. Ramses Dumas WBC 9.5 103/ul Normal 4.0-11.0 [facility] Comment on above: Performed By: #### U RCX #### [facility] [address] [place] [address] Dr. Ramses Dumas PROF 14(COMP METB)on 022 Albumin [Mass/Vol] 2.6 g/dL Critically low 3.4-5.0 [facility] Comment on above: Performed By: #### U KJ 24 #### [facility] [address] [address] [address] Ramses Dumas Albumin/Globulin [Mass ratio] 0.8 {ratio} Normal [facility] Comment on above: Performed By: #### U KJ 24 #### [facility] [address] [address] [address] Ramses Dumas ALP [Catalytic activity/Vol] 82 U/L Normal 46-116 [facility] Comment on above: Performed By: #### U KJ 24 #### [facility] [address] [address] [address] Ramses Dumas ALT [Catalytic activity/Vol] 257 U/L Critically high 14-59 [facility] Comment on above: Performed By: #### U KJ 24 #### [facility] [address] [place] [address] Dr. Ramses Dumas Anion gap [Moles/Vol] 10.3 mmol/L Normal [facility] Comment on above: Performed By: #### U KJ 24 #### [facility] [address] [place] [address] Dr. Ramses Dumas AST [Catalytic activity/Vol] 196 U/L Critically high 15-37 [facility] Comment on above: Performed By: #### U KJ 24 #### [facility] [address] [place] [address] Dr. Ramses Dumas Bilirubin [Mass/Vol] 0.5 mg/dL Normal 0.2-1.0 [facility] Comment on above: Performed By: #### U KJ 24 #### [facility] [address] [place] [address] Dr. Ramses Dumas Calcium [Mass/Vol] 7.8 mg/dL Critically low 8.5-10.1 [facility] Comment on above: Performed By: #### U KJ 24 #### [facility] [address] [place] [address] Dr. Ramses Dumas Chloride [Moles/Vol] 104 mmol/L Normal 98-107 [facility] Comment on above: Performed By: #### U KJ 24 #### [facility] [address] [address] [address] Ramses Dumas CO2 [Moles/Vol] 24.4 mmol/L Normal 21.0-32.0 [facility] Comment on above: Performed By: #### U KJ 24 #### [facility] [address] [address] [address] Ramses Dumas Creatinine [Mass/Vol] 1.09 mg/dL Critically high 0.55-1.02 [facility] Comment on above: Performed By: #### U KJ 24 #### [facility] [address] [address] [address] Ramses Dumas EGFR-AF BOTSWANAN >60 Normal >=60 [facility] Comment on above: Performed By: #### U KJ 24 #### [facility] [address] [address] [address] Ramses Dumas EGFR-NON AF BOTSWANAN 59 mL/min/1.73m2 Critically low >=60 [facility] Comment on above: Performed By: #### U KJ 24 #### [facility] [address] [address] [address] Ramses Dumas Globulin (S) [Mass/Vol] 3.3 g/dL Normal [facility] Comment on above: Performed By: #### U KJ 24 #### [facility] [address] [address] [address] Ramses Dumas Glucose [Mass/Vol] 143 mg/dL Critically high 74-106 [facility] Comment on above: Performed By: #### U KJ 24 #### [facility] [address] [address] [address] Ramses Dumas Potassium [Moles/Vol] 3.7 mmol/L Normal 3.5-5.1 [facility] Comment on above: Performed By: #### U KJ 24 #### [facility] [address] [address] [address] Ramses Dumas Protein [Mass/Vol] 5.9 g/dL Critically low 6.4-8.2 [facility] Comment on above: Performed By: #### U KJ 24 #### [facility] [address] [place] [address] Dr. Ramses Dumas Sodium [Moles/Vol] 135 mmol/L Critically low 136-145 [facility] Comment on above: Performed By: #### U KJ 24 #### [facility] [address] [place] [address] Dr. Ramses Dumas Urea nitrogen [Mass/Vol] 10.0 mg/dL Normal 7.0-18.0 [facility] Comment on above: Performed By: #### U KJ 24 #### [facility] [address] [place] [address] Dr. Ramses Dumas Urea nitrogen/Creatinine [Mass ratio] 9.2 mg/mg Normal [facility] Comment on above: Performed By: #### U KJ 24 #### [facility] [address] [place] [address] Dr. Ramses Dumas BLOOD CULTURE ID PANELon A. baumannii Not detected Normal NOT DETECTED [facility] Comment on above: Performed By: #### C VDTBH #### [facility] [address] [place] [address] Dr. Ramses Dumas Bacteriodes fragilis Not detected Normal NOT DETECTED [facility] Comment on above: Performed By: #### C VDTBH #### [facility] [address] [place] [address] Dr. Ramses Dumas BCID CONTROLS PASSED Normal [facility] Comment on above: Performed By: #### C VDTBH #### [facility] [address] [place] [address] Dr. Ramses Dumas BCIDBTHD BLOOD CULTURE BOTTLE INFORMATION Normal [facility] Comment on above: Performed By: #### C VDTBH #### [facility] [address] [place] [address] Dr. Ramses Dumas BCIDHD1 ANTIMICROBIAL RESISTANCE GENES Normal [facility] Comment on above: Performed By: #### C VDTBH #### [facility] [address] [place] [address] Dr. Ramses Dumas BCIDHD2 SEE BELOW [place] Comment on above: Result Comment: Note : Antimicrobial resitance can occur via multiple mechanisms. A Not Detected result for the [employer] antomicrobial resistance gene assays does not indicate antimicrobial susceptibility. Subculturing is required for species identification and susceptibility testing of isolates. Performed By: #### C VDTBH #### [facility] [address] [place] [address] Dr. Ramses Dumas BCIDHD3 Positive Normal [facility] Comment on above: Performed By: #### C VDTBH #### [facility] [address] [place] [address] Dr. Ramses Dumas BCIDHD4 Negative Normal [facility] Comment on above: Performed By: #### C VDTBH #### [facility] [address] [place] [address] Dr. Ramses Dumas BCIDHD5 YEAST Normal [facility] Comment on above: Performed By: #### C VDTBH #### [facility] [address] [place] [address] Dr. Ramses Dumas Bottle Set: Set 1 Normal [facility] Comment on above: Performed By: #### C VDTBH #### [facility] [address] [place] [address] Dr. Ramses Dumas Bottle: Pediatric Normal [facility] Comment on above: Performed By: #### C VDTBH #### [facility] [address] [place] [address] Dr. Ramses Dumas C. neoformans/gattii Not detected Normal NOT DETECTED [facility] Comment on above: Performed By: #### C VDTBH #### [facility] [address] [place] [address] Dr. Ramses Dumas Kim albicans Not detected Normal NOT DETECTED [facility] Comment on above: Performed By: #### C VDTBH #### [facility] [address] [place] [address] Dr. Ramses Dumas Kim auris Not detected Normal NOT DETECTED [facility] Comment on above: Performed By: #### C VDTBH #### [facility] [address] [place] [address] Dr. Ramses Dumas Kim glabrata Not detected Normal NOT DETECTED [facility] Comment on above: Performed By: #### C VDTBH #### [facility] [address] [address] [address] Ramses Dumas Kim Krusei Not detected Normal NOT DETECTED [facility] Comment on above: Performed By: #### C VDTBH #### [facility] [address] [place] [address] Dr. Ramses Dumas Kim Parapsilosis Not detected Normal NOT DETECTED [facility] Comment on above: Performed By: #### C VDTBH #### [facility] [address] [address] [address] Ramses Dumas Kim Tropicalis Not detected Normal NOT DETECTED [facility] Comment on above: Performed By: #### C VDTBH #### [facility] [address] [place] [address] Dr. Ramses Dumas CTX-M Resistant Gene Not Applicable Normal NOT DETECTE D [facility] Comment on above: Performed By: #### C VDTBH #### [facility] [address] [place] [address] Dr. Ramses Dumas E. Cloacae complex Not detected Normal NOT DETECTED [facility] Comment on above: Performed By: #### C VDTBH #### [facility] [address] [place] [address] Dr. Ramses Dumas E. faecalis Not detected Normal NOT DETECTED [facility] Comment on above: Performed By: #### C VDTBH #### [facility] [address] [place] [address] Dr. Ramses Dumas E. faecium Not detected Normal NOT DETECTED [facility] Comment on above: Performed By: #### C VDTBH #### [facility] [address] [place] [address] Dr. Ramses Dumas Enterobacteriaceae Not detected Normal NOT DETECTED [facility] Comment on above: Performed By: #### C VDTBH #### [facility] [address] [place] [address] Dr. Ramses Dumas Escherichia coli Not detected Normal NOT DETECTED [facility] Comment on above: Performed By: #### C VDTBH #### [facility] [address] [place] [address] Dr. Ramses Dumas H. influenzae Not detected Normal NOT DETECTED [facility] Comment on above: Performed By: #### C VDTBH #### [facility] [address] [place] [address] Dr. Ramses Dumas IMP Resistant Gene Not Applicable Normal NOT DETECTED [facility] Comment on above: Performed By: #### C VDTBH #### [facility] [address] [place] [address] Dr. Ramses Dumas K. oxytoca Not detected Normal NOT DETECTED [facility] Comment on above: Performed By: #### C VDTBH #### [facility] [address] [place] [address] Dr. Ramses Dumas K. pneumoniae Not detected Normal NOT DETECTED [facility] Comment on above: Performed By: #### C VDTBH #### [facility] [address] [place] [address] Dr. Ramses Dumsa Klebsiella aerogenes Not detected Normal NOT DETECTED [facility] Comment on above: Performed By: #### C VDTBH #### [facility] [address] [place] [address] Dr. Ramses Dumas KPC Resistant Gene Not detected Normal NOT DETECTED [facility] Comment on above: Performed By: #### C VDTBH #### [facility] [address] [place] [address] Dr. Ramses Dumas List. monocytogenes Not detected Normal NOT DETECTED [facility] Comment on above: Performed By: #### C VDTBH #### [facility] [address] [place] [address] Dr. Ramses Dumas Mcr-1 Resistant Gene Not Applicable Normal NOT DETECTE D [facility] Comment on above: Performed By: #### C VDTBH #### [facility] [address] [place] [address] Dr. Ramses Dumas mecA/C Not Applicable Normal NOT DETECTED [facility] Comment on above: Performed By: #### C VDTBH #### [facility] [address] [place] [address] Dr. Ramses Dumas mecA/C MREJ Not Applicable Normal NOT DETECTED [facility] Comment on above: Performed By: #### C VDTBH #### [facility] [address] [place] [address] Dr. Ramses Dumas N. meningitidis Not detected Normal NOT DETECTED [facility] Comment on above: Performed By: #### C VDTBH #### [facility] [address] [place] [address] Dr. Ramses Dumas NDM Resistant Gene Not Applicable Normal NOT DETECTED [facility] Comment on above: Performed By: #### C VDTBH #### [facility] [address] [place] [address] Dr. Ramses Dumas Oxa-48-like Not Applicable Normal NOT DETECTED [facility] Comment on above: Performed By: #### C VDTBH #### [facility] [address] [place] [address] Dr. Ramses Dumas Proteus Not detected Normal NOT DETECTED [facility] Comment on above: Performed By: #### C VDTBH #### [facility] [address] [place] [address] Dr. Ramses Dumas Pseud. aeruginosa Not detected Normal NOT DETECTED [facility] Comment on above: Performed By: #### C VDTBH #### [facility] [address] [place] [address] Dr. Ramses Dumas S. maltophilia Not detected Normal NOT DETECTED [facility] Comment on above: Performed By: #### C VDTBH #### [facility] [address] [place] [address] Dr. Ramses Dumas Salmonella Not detected Normal NOT DETECTED [facility] Comment on above: Performed By: #### C VDTBH #### [facility] [address] [place] [address] Dr. Ramses Dumas Seratia marcescens Not detected Normal NOT DETECTED [facility] Comment on above: Performed By: #### C VDTBH #### [facility] [address] [place] [address] Dr. Ramses Dumas Site: unknown/not given Normal [facility] Comment on above: Performed By: #### C VDTBH #### [facility] [address] [place] [address] Dr. Ramses Dumas Staph. aureus Not detected Normal NOT DETECTED [facility] Comment on above: Performed By: #### C VDTBH #### [facility] [address] [place] [address] Dr. Ramses Dumas Staph. epidermidis Not detected Normal NOT DETECTED [facility] Comment on above: Performed By: #### C VDTBH #### [facility] [address] [place] [address] Dr. Ramses Dumas Stapphillip. lugdunensis Not detected Normal NOT DETECTED [facility] Comment on above: Performed By: #### C VDTBH #### [facility] [address] [place] [address] Dr. Ramses Dumas Staphylococcus Not detected Normal NOT DETECTED [facility] Comment on above: Performed By: #### C VDTBH #### [facility] [address] [place] [address] Dr. Ramses Dumas Strep. agalactiae Detected Critically abnormal NOT DETECTED [facility] Comment on above: Performed By: #### C VDTBH #### [facility] [address] [place] [address] Dr. Ramses Dumas Strep. pneumoniae Not detected Normal NOT DETECTED [facility] Comment on above: Performed By: #### C VDTBH #### [facility] [address] [place] [address] Dr. Ramses Dumas Strep. pyogenes Not detected Normal NOT DETECTED [facility] Comment on above: Performed By: #### C VDTBH #### [facility] [address] [place] [address] Dr. Ramses Dumas Streptococcus Detected Critically abnormal NOT DETECTED [facility] Comment on above: Performed By: #### C VDTBH #### [facility] [address] [place] [address] Dr. Ramses Dumas Efrain/B Resist. Gene Not detected Normal NOT DETECTED [facility] Comment on above: Performed By: #### C VDTBH #### [facility] [address] [place] [address] Dr. Ramses Dumas VIM Resistant Gene Not Applicable Normal NOT DETECTED [facility] Comment on above: Performed By: #### C VDTBH #### [facility] [address] [place] [address] Dr. Ramses Dumas CBC AUTO DIFFon 08-22-2022 BASO # 0.1 103/ul Normal 0.0-0.1 [facility] Comment on above: Performed By: #### U KJ 24 #### [facility] [address] [place] [address] Dr. Ramses Dumas Basophils/100 WBC (Bld) 0.7 % Normal 0.2-2.0 [facility] Comment on above: Performed By: #### U KJ 24 #### [facility] [address] [place] [address] Dr. Ramses Dumas EO # 0.1 103/ul Normal 0.0-0.7 [facility] Comment on above: Performed By: #### U KJ 24 #### [facility] [address] [place] [address] Dr. Ramses Dumas Eosinophils/100 WBC (Bld) 1.7 % Normal 0.9-7.0 [facility] Comment on above: Performed By: #### U KJ 24 #### [facility] [address] [place] [address] Dr. Ramses Dumas Erythrocyte distribution width (RBC) [Ratio] 13.2 % Normal 11.0-15.0 [facility] Comment on above: Performed By: #### U KJ 24 #### [facility] [address] [place] [address] Dr. Ramses Dumas Hematocrit (Bld) [Volume fraction] 39.8 % Normal 36.0-48.0 [facility] Comment on above: Performed By: #### U KJ 24 #### [facility] [address] [place] [address] Dr. Ramses Dumas Hemoglobin (Bld) [Mass/Vol] 12.9 g/dL Normal 12.0-16.0 [facility] Comment on above: Performed By: #### U KJ 24 #### [facility] [address] [place] [address] Dr. Ramses Dumas IG # 0.02 10e3/ul Normal 0.00-0.03 [facility] Comment on above: Performed By: #### U KJ 24 #### [facility] [address] [place] [address] Dr. Ramses Dumas IG % 0.2 % Normal 0.0-0.5 [facility] Comment on above: Performed By: #### U KJ 24 #### [facility] [address] [place] [address] Dr. Ramses Dumas LYMPH # 3.2 103/ul Normal 1.2-3.8 [facility] Comment on above: Performed By: #### U KJ 24 #### [facility] [address] [place] [address] Dr. Ramses Dumas Lymphocytes/100 WBC (Bld) 40.0 % Normal 20.5-60.0 [facility] Comment on above: Performed By: #### U KJ 24 #### [facility] [address] [place] [address] Dr. Ramses Dumas MANUAL DIFF REQ NO Normal [facility] Comment on above: Performed By: #### U KJ 24 #### [facility] [address] [place] [address] Dr. Ramses Dumas MCH (RBC) [Entitic mass] 26.6 pg Critically low 26.7-34.0 [facility] Comment on above: Performed By: #### U KJ 24 #### [facility] [address] [place] [address] Dr. Ramses Dumas MCHC (RBC) [Mass/Vol] 32.4 g/dL Normal 29.9-35.2 [facility] Comment on above: Performed By: #### U KJ 24 #### [facility] [address] [place] [address] Dr. Ramses Dumas MCV (RBC) [Entitic vol] 82.1 fL Normal 81.0-99.0 [facility] Comment on above: Performed By: #### U KJ 24 #### [facility] [address] [place] [address] Dr. Ramses Dumas MONO # 0.6 103/ul Normal 0.3-0.8 [facility] Comment on above: Performed By: #### U KJ 24 #### [facility] [address] [place] [address] Dr. Ramses Dumas Monocytes/100 WBC (Bld) 7.5 % Normal 1.7-12.0 [facility] Comment on above: Performed By: #### U KJ 24 #### [facility] [address] [place] [address] Dr. Ramses Dumas NEUT # 4.0 103/ul Normal 1.4-6.5 [facility] Comment on above: Performed By: #### U KJ 24 #### [facility] [address] [place] [address] Dr. Ramses Dumas Neutrophils/100 WBC (Bld) 49.9 % Normal 43.0-75.0 [facility] Comment on above: Performed By: #### U KJ 24 #### [facility] [address] [place] [address] Dr. Ramses Dumas Platelet mean volume (Bld) [Entitic vol] 9.3 fL Critically low 9.5-13.5 [facility] Comment on above: Performed By: #### U KJ 24 #### [facility] [address] [place] [address] Dr. Ramses Dumas PLT 354 103/ul Normal 150-450 [facility] Comment on above: Performed By: #### U KJ 24 #### [facility] [address] [place] [address] Dr. Ramses Dumas RBC 4.85 106/ul Normal 4.20-5.40 [facility] Comment on above: Performed By: #### U KJ 24 #### [facility] [address] [place] [address] Dr. Ramses Dumas WBC 8.1 103/ul Normal 4.0-11.0 [facility] Comment on above: Performed By: #### U KJ 24 #### [facility] [address] [address] ABD/PELVIS WO CONon [...] KESHIA IRIZARRY Date: 2022-08-22 07:04 Normal [facility] Covid-19 PCR (CVDTB)on SARS-CoV-2 (COVID-19) RNA FRANCESCA+probe Ql (Unsp spec) Not detected Normal NOT DETECTED [facility] Comment on above: Result Comment: When [...] for this test is supported by the [employer] and [employer] Service's declaration that [...] used). Performed By: #### C MP #### [facility] [address] [place] [address] Dr. Ramses Dumas ER URINE PROFILEon 2 Bilirubin Ql (U) Negative Normal NEGATIVE [facility] Comment on above: Performed By: #### U RCX #### [facility] [address] [place] [address] Dr. Ramses Dumas Clarity (U) CLEAR Normal CLEAR [facility] Comment on above: Performed By: #### U RCX #### [facility] [address] [place] [address] Dr. Ramses Dumas Color (U) LT. YELLOW Normal YELLOW [facility] Comment on above: Performed By: #### U RCX #### [facility] [address] [place] [address] Dr. Ramses DELEON A micrscopic examination will be performed if indicated. Normal [facility] Comment on above: Performed By: #### U RCX #### [facility] [address] [place] [address] Dr. Ramses Dumas Glucose Ql (U) Negative Normal NEGATIVE [facility] Comment on above: Performed By: #### U RCX #### [facility] [address] [place] [address] Dr. Ramses Dumas Hemoglobin Ql (U) SMALL Abnormal NEGATIVE [facility] Comment on above: Performed By: #### U RCX #### [facility] [address] [place] [address] Dr. Ramses Dumas Ketones Ql (U) Negative Normal NEGATIVE [facility] Comment on above: Performed By: #### U RCX #### [facility] [address] [place] [address] Dr. Ramses Dumas LEUKOCYTES SMALL Abnormal NEGATIVE [facility] Comment on above: Performed By: #### U RCX #### [facility] [address] [place] [address] Dr. Ramses Dumas Nitrite Ql (U) Negative Normal NEGATIVE [facility] Comment on above: Performed By: #### U RCX #### [facility] [address] [place] [address] Dr. Ramses Dumas pH (U) 7.0 [pH] Normal 5-9 [facility] Comment on above: Performed By: #### U RCX #### [facility] [address] [place] [address] Dr. Ramses Dumas Protein (U) [Mass/Vol] 30 mg/dL Abnormal NEGATIVE/ TRACE [facility] Comment on above: Performed By: #### U RCX #### [facility] [address] [place] [address] Dr. Ramses Dumas SPEC GRAVITY 1.020 Normal 1.005-<=1.02 5 [facility] Comment on above: Performed By: #### U RCX #### [facility] [address] [place] [address] Dr. Ramses Dumas UR MICRO IND INDICATED Normal [facility] Comment on above: Performed By: #### U RCX #### [facility] [address] [place] [address] Dr. Ramses Dumas Urobilinogen Qn (U) 0.2 {Lucero'U}/dL Normal 0.2 - 1. 0 [facility] Comment on above: Performed By: #### U RCX #### [facility] [address] [place] [address] Dr. Ramses Dumas LACTATE/LACTIC ACIDon 2021 Lactate [Moles/Vol] 2.3 mmol/L Critically high 0.4-1.9 [facility] Comment on above: Performed By: #### U RCX #### [facility] [address] [place] [address] Dr. Ramses Dmuas URon 08-22-2022 , QUAL Negative Normal NEGATIVE [facility] Comment on above: Performed By: #### U RCX #### [facility] [address] [address] [address] Ramses Dumas PROF 14(COMP METB)on 022 Albumin [Mass/Vol] 3.5 g/dL Normal 3.4-5.0 [facility] Comment on above: Performed By: #### U RCX #### [facility] [address] [place] [address] Dr. Ramses Dumas Albumin/Globulin [Mass ratio] 0.9 {ratio} Normal [facility] Comment on above: Performed By: #### U RCX #### [facility] [address] [place] [address] Dr. Ramses Dumas ALP [Catalytic activity/Vol] 92 U/L Normal 46-116 [facility] Comment on above: Performed By: #### U RCX #### [facility] [address] [place] [address] Dr. Ramses Dumas ALT [Catalytic activity/Vol] 139 U/L Critically high 14-59 [facility] Comment on above: Performed By: #### U RCX #### [facility] [address] [place] [address] Dr. Ramses Dumas Anion gap [Moles/Vol] 10.2 mmol/L Normal [facility] Comment on above: Performed By: #### U RCX #### [facility] [address] [place] [address] Dr. Ramses Dumas AST [Catalytic activity/Vol] 112 U/L Critically high 15-37 [facility] Comment on above: Performed By: #### U RCX #### [facility] [address] [place] [address] Dr. Ramses Dumas Bilirubin [Mass/Vol] 0.2 mg/dL Normal 0.2-1.0 [facility] Comment on above: Performed By: #### U RCX #### [facility] [address] [place] [address] Dr. Ramses Dumas Calcium [Mass/Vol] 8.8 mg/dL Normal 8.5-10.1 [facility] Comment on above: Performed By: #### U RCX #### [facility] [address] [address] [address] Ramses Dumas Chloride [Moles/Vol] 105 mmol/L Normal 98-107 [facility] Comment on above: Performed By: #### U RCX #### [facility] [address] [address] [address] Ramses Dumas CO2 [Moles/Vol] 26.3 mmol/L Normal 21.0-32.0 [facility] Comment on above: Performed By: #### U RCX #### [facility] [address] [place] [address] Dr. Ramses Dumas Creatinine [Mass/Vol] 0.95 mg/dL Normal 0.55-1.02 [facility] Comment on above: Performed By: #### U RCX #### [facility] [address] [place] [address] Dr. Ramses Dumas EGFR-AF BOTSWANAN >60 Normal >=60 [facility] Comment on above: Performed By: #### U RCX #### [facility] [address] [place] [address] Dr. Ramses Dumas EGFR-NON AF BOTSWANAN >60 Normal >=60 [facility] Comment on above: Performed By: #### U RCX #### [facility] [address] [place] [address] Dr. Ramses Dumas Globulin (S) [Mass/Vol] 3.9 g/dL Normal [facility] Comment on above: Performed By: #### U RCX #### [facility] [address] [place] [address] Dr. Ramses Dumas Glucose [Mass/Vol] 137 mg/dL Critically high 74-106 [facility] Comment on above: Performed By: #### U RCX #### [facility] [address] [place] [address] Dr. Ramses Dumas Potassium [Moles/Vol] 3.5 mmol/L Normal 3.5-5.1 [facility] Comment on above: Performed By: #### U RCX #### [facility] [address] [place] [address] Dr. Ramses Dumas Protein [Mass/Vol] 7.4 g/dL Normal 6.4-8.2 [facility] Comment on above: Performed By: #### U RCX #### [facility] [address] [place] [address] Dr. Ramses Dumas Sodium [Moles/Vol] 138 mmol/L Normal 136-145 [facility] Comment on above: Performed By: #### U RCX #### [facility] [address] [place] [address] Dr. Ramses Dumas Urea nitrogen [Mass/Vol] 11.0 mg/dL Normal 7.0-18.0 [facility] Comment on above: Performed By: #### U RCX #### [facility] [address] [place] [address] Dr. Ramses Dumas Urea nitrogen/Creatinine [Mass ratio] 11.6 mg/mg Normal [facility] Comment on above: Performed By: #### U RCX #### [facility] [address] [place] [address] Dr. Ramses Dumas URINE MICROSCOPIC ONLYon BACTERIA LARGE Abnormal NONE SEEN [facility] Comment on above: Performed By: #### U RCX #### [facility] [address] [place] [address] Dr. Ramses Dumas Bacteria identified Cx Nom (U) CX ALREADY ORDERED Normal [facility] Comment on above: Performed By: #### U RCX #### [facility] [address] [place] [address] Dr. Ramses Dumas CAST NONE SEEN Normal NONE SEEN [facility] Comment on above: Performed By: #### U RCX #### [facility] [address] [place] [address] Dr. Ramses Dumas Crystals LM Nom (Urine sed) NONE SEEN Normal NONE SEEN [facility] Comment on above: Performed By: #### U RCX #### [facility] [address] [place] [address] Dr. Ramses Dumas Epithelial cells LM Ql (Urine sed) MANY Abnormal NONE SEEN /RARE [facility] Comment on above: Performed By: #### U RCX #### [facility] [address] [place] [address] Dr. Ramses Dumas MUCOUS NONE SEEN Normal NONE SEEN [facility] Comment on above: Performed By: #### U RCX #### [facility] [address] [place] [address] Dr. Ramses Dumas RBC 5-10 Abnormal 0-2 [facility] Comment on above: Performed By: #### U RCX #### [facility] [address] [place] [address] Dr. Ramses Dumas WBC 50-75 Abnormal NONE SEEN [facility] Comment on above: Performed By: #### U RCX #### [facility] [address] [place] [address] Dr. Ramses Dumas CULTURE URINEon 08-15-2022 CULTURE [...] F Tetracycline >=16 R F Normal [facility] Comment on above: Performed By: #### U RCX #### [facility] [address] [place] [address] Dr. Ramses Dumas ACETAMINOPHENon 08-13-2022 Acetaminophen [Mass/Vol] ug/mL Critically low 10.0-30.0 [facility] Comment on above: Performed By: #### U RCX #### [facility] [address] [place] [address] Dr. Ramses Dumas CBC AUTO DIFFon 08-13-2022 BASO # 0.1 103/ul Normal 0.0-0.1 [facility] Comment on above: Performed By: #### C VDTBH #### [facility] [address] [place] [address] Dr. Ramses Dumas Basophils/100 WBC (Bld) 0.8 % Normal 0.2-2.0 [facility] Comment on above: Performed By: #### C VDTBH #### [facility] [address] [place] [address] Dr. Ramses Dumas EO # 0.1 103/ul Normal 0.0-0.7 [facility] Comment on above: Performed By: #### C VDTBH #### [facility] [address] [place] [address] Dr. Ramses Dumas Eosinophils/100 WBC (Bld) 1.6 % Normal 0.9-7.0 [facility] Comment on above: Performed By: #### C VDTBH #### [facility] [address] [place] [address] Dr. Ramses Dumas Erythrocyte distribution width (RBC) [Ratio] 13.3 % Normal 11.0-15.0 [facility] Comment on above: Performed By: #### C VDTBH #### [facility] [address] [place] [address] Dr. Ramses Dumas Hematocrit (Bld) [Volume fraction] 40.6 % Normal 36.0-48.0 [facility] Comment on above: Performed By: #### C VDTBH #### [facility] [address] [place] [address] Dr. Ramses Dumas Hemoglobin (Bld) [Mass/Vol] 13.2 g/dL Normal 12.0-16.0 [facility] Comment on above: Performed By: #### C VDTBH #### [facility] [address] [place] [address] Dr. Ramses Dumas IG # 0.01 10e3/ul Normal 0.00-0.03 [facility] Comment on above: Performed By: #### C VDTBH #### [facility] [address] [place] [address] Dr. Ramses Dumas IG % 0.2 % Normal 0.0-0.5 [facility] Comment on above: Performed By: #### C VDTBH #### [facility] [address] [place] [address] Dr. Ramses Dumas LYMPH # 2.4 103/ul Normal 1.2-3.8 [facility] Comment on above: Performed By: #### C VDTBH #### [facility] [address] [place] [address] Dr. Ramses Dumas Lymphocytes/100 WBC (Bld) 37.7 % Normal 20.5-60.0 [facility] Comment on above: Performed By: #### C VDTBH #### [facility] [address] [place] [address] Dr. Ramses Dumas MANUAL DIFF REQ NO Normal [facility] Comment on above: Performed By: #### C VDTBH #### [facility] [address] [place] [address] Dr. Ramses Dumas MCH (RBC) [Entitic mass] 26.7 pg Normal 26.7-34.0 [facility] Comment on above: Performed By: #### C VDTBH #### [facility] [address] [place] [address] Dr. Ramses Dumas MCHC (RBC) [Mass/Vol] 32.5 g/dL Normal 29.9-35.2 [facility] Comment on above: Performed By: #### C VDTBH #### [facility] [address] [place] [address] Dr. Ramses Dumas MCV (RBC) [Entitic vol] 82.0 fL Normal 81.0-99.0 [facility] Comment on above: Performed By: #### C VDTBH #### [facility] [address] [place] [address] Dr. Ramses Dumas MONO # 0.6 103/ul Normal 0.3-0.8 [facility] Comment on above: Performed By: #### C VDTBH #### [facility] [address] [place] [address] Dr. Ramses Dumas Monocytes/100 WBC (Bld) 8.6 % Normal 1.7-12.0 [facility] Comment on above: Performed By: #### C VDTBH #### [facility] [address] [place] [address] Dr. Ramses Dumas NEUT # 3.3 103/ul Normal 1.4-6.5 [facility] Comment on above: Performed By: #### C VDTBH #### [facility] [address] [place] [address] Dr. Ramses Dumas Neutrophils/100 WBC (Bld) 51.1 % Normal 43.0-75.0 [facility] Comment on above: Performed By: #### C VDTBH #### [facility] [address] [place] [address] Dr. Ramses Dumas Platelet mean volume (Bld) [Entitic vol] 8.7 fL Critically low 9.5-13.5 [facility] Comment on above: Performed By: #### C VDTBH #### [facility] [address] [place] [address] Dr. Ramses Dumas PLT 409 103/ul Normal 150-450 [facility] Comment on above: Performed By: #### C VDTBH #### [facility] [address] [place] [address] Dr. Ramses Dumas RBC 4.95 106/ul Normal 4.20-5.40 [facility] Comment on above: Performed By: #### C VDTBH #### [facility] [address] [place] [address] Dr. Ramses Dumas WBC 6.4 103/ul Normal 4.0-11.0 [facility] Comment on above: Performed By: #### C VDTBH #### [facility] [address] [place] [address] Dr. Ramses Dumas Covid-19 PCR ([facility])on 07-20 SARS-CoV-2 (COVID-19) RNA FRANCESCA+probe Ql (Unsp spec) Not detected Normal NOT DETECTED [facility] Comment on above: Result Comment: When [...] for this test is supported by the [employer] of [employer] and Human Service's declaration that [...] used). Performed By: #### C VDTB #### [facility] [address] [place] [address] Dr. Ramses Dumas DRUG SCREEN RAPID (URINE)on 08-13-2022 AMP Negative Normal NEGATIVE [facility] Comment on above: Performed By: #### C BC #### [facility] [address] [place] [address] Dr. Ramses Dumas BAR Negative Normal NEGATIVE [facility] Comment on above: Performed By: #### C BC #### [facility] [address] [place] [address] Dr. Ramses Dumas BUP Negative Normal NEGATIVE [facility] Comment on above: Performed By: #### C BC #### [facility] [address] [place] [address] Dr. Ramses Dumas BZO Negative Normal NEGATIVE [facility] Comment on above: Performed By: #### C BC #### [facility] [address] [place] [address] Dr. Ramses Dumas ODILIA Negative Normal NEGATIVE [facility] Comment on above: Performed By: #### C BC #### [facility] [address] [place] [address] Dr. Ramses Dumas CUT-OFFS SEE BELOW Normal [facility] Comment on above: Result Comment: AMP [...] ng/mL Performed By: #### C BC #### [facility] [address] [place] [address] Dr. Ramses Dumas DRUG CUT HEADER DRUG CLASS TEST SYSTEM CUT-OFF CONCENTRATIONS ARE FOLLOWS: Normal [facility] Comment on above: Performed By: #### C BC #### [facility] [address] [place] [address] Dr. Ramses Dumas mAMP Negative Normal NEGATIVE [facility] Comment on above: Performed By: #### C BC #### [facility] [address] [place] [address] Dr. Ramses Dumas MTD Negative Normal NEGATIVE [facility] Comment on above: Performed By: #### C BC #### [facility] [address] [place] [address] Dr. Ramses Dumas OPI Negative Normal NEGATIVE [facility] Comment on above: Performed By: #### C BC #### [facility] [address] [place] [address] Dr. Ramses Dumas OXY Negative Normal NEGATIVE [facility] Comment on above: Performed By: #### C BC #### [facility] [address] [place] [address] Dr. Ramses Dumas PCP Negative Normal NEGATIVE [facility] Comment on above: Performed By: #### C BC #### [facility] [address] [place] [address] Dr. Ramses Dumas PPX Negative Normal NEGATIVE [facility] Comment on above: Performed By: #### C BC #### [facility] [address] [place] [address] Dr. Ramses Dumas TCA Negative Normal NEGATIVE [facility] Comment on above: Performed By: #### C BC #### [facility] [address] [address] [address] Ramses Dumas THC Negative Normal NEGATIVE [facility] Comment on above: Performed By: #### C BC #### [facility] [address] [place] [address] Dr. Ramses Dumas ER URINE PROFILEon 2 Bilirubin Ql (U) Negative Normal NEGATIVE [facility] Comment on above: Performed By: #### C BC #### [facility] [address] [address] [address] Ramses Dumas Clarity (U) CLEAR Normal CLEAR [facility] Comment on above: Performed By: #### C BC #### [facility] [address] [place] [address] Dr. Ramses Dumas Color (U) LT. YELLOW Normal YELLOW [facility] Comment on above: Performed By: #### C BC #### [facility] [address] [place] [address] Dr. Ramses Dumas ERUCARLOS ENRIQUE A micrscopic examination will be performed if indicated. Normal [facility] Comment on above: Performed By: #### C BC #### [facility] [address] [place] [address] Dr. Ramses Dumas Glucose Ql (U) Negative Normal NEGATIVE [facility] Comment on above: Performed By: #### C BC #### [facility] [address] [address] [address] Ramses Dumas Hemoglobin Ql (U) LARGE Abnormal NEGATIVE [facility] Comment on above: Performed By: #### C BC #### [facility] [address] [address] [address] Ramses Dumas Ketones Ql (U) Negative Normal NEGATIVE [facility] Comment on above: Performed By: #### C BC #### [facility] [address] [place] [address] Dr. Ramses Dumas LEUKOCYTES LARGE Abnormal NEGATIVE [facility] Comment on above: Performed By: #### C BC #### [facility] [address] [place] [address] Dr. Ramses Dumas Nitrite Ql (U) Positive Abnormal NEGATIVE [facility] Comment on above: Performed By: #### C BC #### [facility] [address] [place] [address] Dr. Ramses Dumas pH (U) 6.0 [pH] Normal 5-9 [facility] Comment on above: Performed By: #### C BC #### [facility] [address] [place] [address] Dr. Ramses Dumas Protein (U) [Mass/Vol] 30 mg/dL Abnormal NEGATIVE/ TRACE [facility] Comment on above: Performed By: #### C BC #### [facility] [address] [place] [address] Dr. Ramses Dumas SPEC GRAVITY >=1.030 Abnormal 1.005-<=1.02 5 [facility] Comment on above: Performed By: #### C BC #### [facility] [address] [place] [address] Dr. Ramses Dumas UR MICRO IND INDICATED Normal [facility] Comment on above: Performed By: #### C BC #### [facility] [address] [place] [address] Dr. Ramses Dumas Urobilinogen Qn (U) 0.2 {Lucero'U}/dL Normal 0.2 - 1. 0 [facility] Comment on above: Performed By: #### C BC #### [facility] [address] [place] [address] Dr. Ramses Dumas ETHANOL (BLD ALC)on 08-13-20 ALC NOTE NOTE: 80 mg/dl is th e legal limit for a blood alcohol level Normal [facility] Comment on above: Performed By: #### B LDCX2 #### [facility] [address] [place] [address] Dr. Ramses Dumas Ethanol [Mass/Vol] mg/dL Normal [facility] Comment on above: Performed By: #### B LDCX2 #### [facility] [address] [place] [address] Dr. Ramses Dumas URon 08-13-2022 , QUAL Negative Normal NEGATIVE [facility] Comment on above: Performed By: #### C BC #### [facility] [address] [place] [address] Dr. Ramses Dumas PROF 14(COMP METB)on 022 Albumin [Mass/Vol] 3.8 g/dL Normal 3.4-5.0 [facility] Comment on above: Performed By: #### U RCX #### [facility] [address] [place] [address] Dr. Ramses Dumas Albumin/Globulin [Mass ratio] 0.9 {ratio} Normal [facility] Comment on above: Performed By: #### U RCX #### [facility] [address] [place] [address] Dr. Ramses Dumas ALP [Catalytic activity/Vol] 82 U/L Normal 46-116 [facility] Comment on above: Performed By: #### U RCX #### [facility] [address] [place] [address] Dr. Ramses Dumas ALT [Catalytic activity/Vol] 41 U/L Normal 14-59 [facility] Comment on above: Performed By: #### U RCX #### [facility] [address] [place] [address] Dr. Ramses Dumas Anion gap [Moles/Vol] 9.3 mmol/L Normal [facility] Comment on above: Performed By: #### U RCX #### [facility] [address] [place] [address] Dr. Ramses Dumas AST [Catalytic activity/Vol] 21 U/L Normal 15-37 [facility] Comment on above: Performed By: #### U RCX #### [facility] [address] [place] [address] Dr. Ramses Dumas Bilirubin [Mass/Vol] 0.3 mg/dL Normal 0.2-1.0 [facility] Comment on above: Performed By: #### U RCX #### [facility] [address] [place] [address] Dr. Ramses Dumas Calcium [Mass/Vol] 8.9 mg/dL Normal 8.5-10.1 [facility] Comment on above: Performed By: #### U RCX #### [facility] [address] [place] [address] Dr. Ramses Dumas Chloride [Moles/Vol] 105 mmol/L Normal 98-107 [facility] Comment on above: Performed By: #### U RCX #### [facility] [address] [address] [address] Ramses Dumas CO2 [Moles/Vol] 28.5 mmol/L Normal 21.0-32.0 [facility] Comment on above: Performed By: #### U RCX #### [facility] [address] [place] [address] Dr. Ramses Dumas Creatinine [Mass/Vol] 0.81 mg/dL Normal 0.55-1.02 [facility] Comment on above: Performed By: #### U RCX #### [facility] [address] [place] [address] Dr. Ramses Dumas EGFR-AF BOTSWANAN >60 Normal >=60 [facility] Comment on above: Performed By: #### U RCX #### [facility] [address] [place] [address] Dr. Ramses Dumas EGFR-NON AF BOTSWANAN >60 Normal >=60 [facility] Comment on above: Performed By: #### U RCX #### [facility] [address] [place] [address] Dr. Ramses Dumas Globulin (S) [Mass/Vol] 4.1 g/dL Normal [facility] Comment on above: Performed By: #### U RCX #### [facility] [address] [address] [address] Ramses Dumas Glucose [Mass/Vol] 100 mg/dL Normal 74-106 [facility] Comment on above: Performed By: #### U RCX #### [facility] [address] [place] [address] Dr. Ramses Dumas Potassium [Moles/Vol] 3.8 mmol/L Normal 3.5-5.1 [facility] Comment on above: Performed By: #### U RCX #### [facility] [address] [address] [address] Ramses Dumas Protein [Mass/Vol] 7.9 g/dL Normal 6.4-8.2 [facility] Comment on above: Performed By: #### U RCX #### [facility] [address] [address] [address] Ramses Dumas Sodium [Moles/Vol] 139 mmol/L Normal 136-145 [facility] Comment on above: Performed By: #### U RCX #### [facility] [address] [address] [address] Ramses Dumas Urea nitrogen [Mass/Vol] 10.0 mg/dL Normal 7.0-18.0 [facility] Comment on above: Performed By: #### U RCX #### [facility] [address] [address] [address] Ramses Dumas Urea nitrogen/Creatinine [Mass ratio] 12.3 mg/mg Normal [facility] Comment on above: Performed By: #### U RCX #### [facility] [address] [address] [address] Ramses Dumas SALICYLATEon 08-13-2022 SALICYLATE <2.8 Normal <=19.9 [facility] Comment on above: Performed By: #### U RCX #### [facility] [address] [address] [address] Ramses Dumas URINE MICROSCOPIC ONLYon BACTERIA LARGE Abnormal NONE SEEN [facility] Comment on above: Performed By: #### C BC #### [facility] [address] [address] [address] Ramses Dumas Bacteria identified Cx Nom (U) INDICATED Normal [facility] Comment on above: Performed By: #### C BC #### [facility] [address] [address] [address] Ramses Dumas CA OX CRYSTALS RARE Normal [facility] Comment on above: Performed By: #### C BC #### [facility] [address] [place] [address] Dr. Ramses Dumas CAST NONE SEEN Normal NONE SEEN [facility] Comment on above: Performed By: #### C BC #### [facility] [address] [place] [address] Dr. Ramses Dumas Crystals LM Nom (Urine sed) SEEN Abnormal NONE SEEN [facility] Comment on above: Performed By: #### C BC #### [facility] [address] [place] [address] Dr. Ramses Dumas Epithelial cells LM Ql (Urine sed) MODERATE Abnormal NONE SEEN /RARE [facility] Comment on above: Performed By: #### C BC #### [facility] [address] [place] [address] Dr. Ramses Dumas MUCOUS NONE SEEN Normal NONE SEEN [facility] Comment on above: Performed By: #### C BC #### [facility] [address] [place] [address] Dr. Ramses Dumas RBC 10-20 Abnormal 0-2 [facility] Comment on above: Performed By: #### C BC #### [facility] [address] [place] [address] Dr. Ramses Dumas WBC 20-50 Abnormal NONE SEEN [facility] Comment on above: Performed By: #### C BC #### [facility] [address] [place] [address] Dr. Ramses Dumas Pap IG,rfx Aptima HPV all pt hon 08-09-2022 . . Normal [facility] Comment on above: Performed By: #### C MP #### [facility] [address] [place] [address] Dr. Ramses Dumas DIAGNOSIS: Comment Abnormal [facility] Comment on above: Result Comment: EPIT HELIAL CELL ABNORMALITY. LOW GRADE SQUAMOUS INTRAEPITHELIAL LESION (LSIL). Performed By: #### C MP #### [facility] [address] [place] [address] Dr. Ramses Dumas Electronically signed by: Comment Normal [facility] Comment on above: Result Comment: Arnaud Joseph MD, Pathologist Performed By: #### C MP #### [facility] [address] [address] [address] Ramses Dumas HPV Aptima Negative Normal Negative [facility] Comment on above: Result Comment: This nucleic acid amplification test detects fourteen high-risk HPV types (16,18,31,33,35,39,45,51,52,56,58,59,66,68) without differentiation. Performed By: #### C MP #### [facility] [address] [address] [address] Ramses Dumas Methodology: Comment Normal [facility] Comment on above: Result Comment: This liquid based ThinPrep(R) pap test was screened with the use of an image guided system. Performed By: #### C MP #### [facility] [address] [place] [address] Dr. Ramses Dumas Note: Comment Normal [facility] Comment on above: Result Comment: The Pap smear is a screening test designed to aid in the detection of premalignant and malignant conditions of the uterine cervix. It is not a diagnostic procedure and should not be used as the sole means of detecting cervical cancer. Both false-positive and false-negative reports do occur. . Performed By: #### C MP #### [facility] [address] [place] [address] Dr. Ramses Dumas Pathologist Provided ICD10 Comment Normal [facility] Comment on above: Result Comment: [id number] Performed By: #### C MP #### [facility] [address] [place] [address] Dr. Ramses Dumas Performed by: Comment Normal [facility] Comment on above: Result Comment: Gail Ruano, Vending Machine Technician (ASCP) Performed By: #### C MP #### [facility] [address] [place], [place] [id number] Dr. Ramses Dumas Reflex Criteria: Comment Normal [facility] Comment on above: Result Comment: See below for HPV testing results. . Performed By: #### C MP #### [facility] [address] [place], [place] [id number] Dr. Ramses Dumas Specimen adequacy: Comment Normal [facility] Comment on above: Result Comment: Sati sfactory for evaluation. Endocervical and/or squamous metaplastic cells (endocervical component) are present. Performed By: #### C MP #### [facility] [address] [place] [address] Dr. Ramses Dumas Vital Signs Date Time Vital Sign Value Performing Clinician Facility 04-05-2025 13:06-0400 Body mass index (BMI) [Ratio] 29.86 kg/m2 [facility] [employer] Work Phone: [facility] 04-05-2025 13:06-0400 Body weight 83.92 kg Jefferson Bernie [employer] Work Phone: [facility] 04-05-2025 13:06-0400 Diastolic blood pressure 72 mm[Hg] [facility] Work Phone: [facility] 04-05-2025 13:06-0400 Systolic blood pressure 124 mm[Hg] [facility] Work Phone: [facility] 01-29-2025 09:23-0400 Body temperature 98.1 [degF] [facility] Fel[facility]acruz [facility] [employer] 01-29-2025 09:23-0400 Diastolic blood pressure 86 mm[Hg] Luis Felipe Delacruz [facility] 01-29-2025 09:23-0400 Heart rate 81 /min Luis Felipe Delacruz [facility] 01-29-2025 09:23-0400 Respiratory rate 18 /min Luis Felipe Delacruz [facility] [employer] 01-29-2025 09:23-0400 SaO2% (BldA) [Mass fraction] 100 % Luis Felipe Delacruz [facility] 01-29-2025 09:23-0400 Systolic blood pressure 129 mm[Hg] Luis Felipe Delacruz MD [facility] [employer] 01-29-2025 06:00-0400 Body mass index (BMI) [Ratio] 29.01 kg/m2 Luis Felipe Delacruz MD Work Phone: [facility] [employer] 01-29-2025 06:00-0400 Body weight 81.5 kg Luis Felipe Delacruz MD Work Phone: [facility] [employer] 01-27-2025 10:01-0400 Body height 167.6 cm Luis Felipe Delacruz MD Work Phone: [facility] [employer] 01-22-2025 11:49-0400 Body temperature 97.7 [degF] Luis Felipe Delacruz MD Work Phone: [facility] [employer] 01-22-2025 11:49-0400 Diastolic blood pressure 75 mm[Hg] Luis Felipe Delcaruz MD Work Phone: [facility] [employer] 01-22-2025 11:49-0400 Heart rate 54 /min Luis Felipe Delacruz MD Work Phone: [facility] [employer] 01-22-2025 11:49-0400 Respiratory rate 15 /min Luis Felipe Delacruz MD Work Phone: [facility] [employer] 01-22-2025 11:49-0400 SaO2% (BldA) [Mass fraction] 98 % Luis Felipe Delacruz MD Work Phone: [facility] [employer] 01-22-2025 11:49-0400 Systolic blood pressure 108 mm[Hg] Luis Felipe Delacruz MD Work Phone: [facility] [employer] 01-21-2025 23:45-0400 Body height 167.6 cm Luis Felipe Delacruz MD Work Phone: [facility] [employer] 01-21-2025 23:45-0400 Body mass index (BMI) [Ratio] 28.23 kg/m2 Luis Felipe Delacruz MD Work Phone: [facility] [employer] 01-21-2025 23:45-0400 Body weight 79.3 kg Luis Felipe Delacruz MD Work Phone: [facility] [employer] 04-10-2024 07:30-0400 Body temperature 98 [degF] MD Domingo Snyder Work Phone: [facility] 04-10-2024 07:30-0400 Diastolic blood pressure 73 mm[Hg] MD Domingo Snyder Work Phone: [facility] 04-10-2024 07:30-0400 Heart rate 75 /min MD Domingo Snyder Work Phone: [facility] 04-10-2024 07:30-0400 Respiratory rate 16 /min MD Domingo Snyder Work Phone: [facility] 04-10-2024 07:30-0400 SaO2% (BldA) [Mass fraction] 100 % MD Domingo Snyder Work Phone: [facility] 04-10-2024 07:30-0400 Systolic blood pressure 123 mm[Hg] MD Domingo Snyder Work Phone: [facility] 04-08-2024 22:44-0400 Body height 167.64 cm MD Domingo Snyder Work Phone: [facility] 04-08-2024 22:44-0400 Body weight 86.58 kg MD Domingo Snyder Work Phone: [facility] 03-20-2023 10:30-0400 Blood Pressure Location Nona RAYGOZA [facility] 03-20-2023 10:30-0400 Diastolic blood pressure 73 mm[Hg] Nona [facility] 03-20-2023 10:30-0400 Heart rate 80 /min Nona RAYGOZA [facility] 03-20-2023 10:30-0400 Respiratory rate 16 /min Nnoa RAYGOZA [facility] 03-20-2023 10:30-0400 Systolic blood pressure 128 mm[Hg] Nona RAYGOZA [facility] Encounters Encounter Date Encounter Type Care [...] Available Start: 05-05-2025 End: 05-05-2025 ambulatory Vj Fraier [facility] Work Phone: Start: 05-05-2025 End: 05-05-2025 Departed Referred Vj Fraire DO -[facility] Start: 04-24-2025 End: 04-24-2025 Bamboo steven Leiva MD Work Phone: [facility] Start: 04-24-2025 End: 04-24-2025 Bamboo steven Leiva MD Work Phone: [facility] Start: 04-24-2025 End: 04-24-2025 Postop follow up visit related to original px Patrick Leiva MD Work Phone: [facility] Comment on above: Encounter [...] Start: 03-16-2025 End: 03-16-2025 ambulatory Adonis Guerra Facility:[facility] Start: 01-26-2025 End: 01-29-2025 Evaluation and management of inpatient Luis Felipe Delacruz MD Work Phone: [facility] Renal//Med Surg Comment on above: Bilateral ureteral c alculi; Acute postoperative pain Start: 01-26-2025 Emergency department patient visit DOMINGO RICHYane Facility:[facility] Start: 01-21-2025 End: 01-22-2025 Evaluation and management of inpatient Luis Felipe Delacruz MD Work Phone: [facility] 3C MED SURG Comment on above: Acute postoperative pain (Primary Dx); Renal calculus, left Start: 01-21-2025 End: 01-21-2025 ambulatory Domingo Snyder MD Work Phone: [facility] Work Phone: Start: 01-21-2025 End: 01-21-2025 Departed Referred Domingo Snyder MD Work Phone: [facility] Start: 01-17-2025 End: 01-19-2025 ambulatory DOMINGO SNYDER [facility] Start: 01-17-2025 End: 01-19-2025 Subsequent hospital visit by physician Octavio Shi Rn [facility] Special Procedures Comment on above: Arrived VUR (vesicoureteric reflux) Start: 01-05-2025 End: 01-07-2025 [facility] Start: 12-02-2024 End: 12-02-2024 ambulatory Domingo Snyder MD Work Phone: [facility] Work Phone: Start: 12-02-2024 End: 12-02-2024 Departed Referred Domingo Snyder MD Work Phone: [facility] Start: 06-16-2024 End: 10-03-2024 ambulatory Bejou Start: 04-09-2024 Non-patient / Non-visit MD Vicente Snyder Work Phone: [facility] Med OutPt Work Phone: Start: 04-08-2024 End: 04-10-2024 Evaluation and management of inpatient MD Domingo Snyder Work Phone: [facility] Work Phone: Start: 12-04-2023 End: 12-05-2023 ambulatory Nona RAYGOZA Facility:[facility] Start: 12-04-2023 End: 12-04-2023 Patient encounter procedure Nona RAYGOZA [facility] Start: 04-10-2023 End: 04-10-2023 Patient encounter status Jefferson Gibbs DO Work Phone: [facility] Start: 04-09-2023 End: 04-10-2023 ambulatory Nona RAYGOZA Facility:CD:[id number] Start: 03-20-2023 End: 03-21-2023 ambulatory Nona RAYGOZA Facility:[facility] Start: 03-20-2023 End: 03-20-2023 Patient encounter procedure Nona RAYGOZA [facility] Start: 02-16-2023 End: 02-16-[address] DOMINGO SNYDER . Facility:[facility] Start: 02-02-2023 End: 02-02-[address] DOMINGO SNYDER . Facility:[facility] Start: 12-26-2022 End: 12-27-2022 ambulatory Nona RAYGOZA Facility:[facility] Start: 12-26-2022 End: 12-26-2022 Patient encounter procedure Nona RAYGOZA [facility] Start: 12-16-2022 End: 12-17-[address] NONA RAYGOZA . Facility:[facility] Start: 12-15-2022 End: 12-16-[address] NONA RAYGOZA . Facility:[facility] Start: 11-27-[address] DOMINGO SNYDER . Facili ty:[facility] Start: 11-07-2022 End: 11-07-[address] DOMINGO SNYDER . Facility:[facility] Start: 11-04-2022 Encounter for preprocedural cardiovascular examination DR JEFFERSON GIBBS . [facility] Start: 11-04-2022 Encounter for preprocedural laboratory examination DR JEFFERSON GIBBS . [facility] Start: 11-03-2022 End: 11-04-2022 Encounter for preprocedural cardiovascular examination DR DOMINGO SNYDER . Facility:[facility] Start: 11-03-2022 End: 11-04-[address] DOMINGO SNYDER . Facility:[facility] Start: 09-20-2022 Encounter for preprocedural laboratory examination DR NONA RAYGOZA . [facility] Start: 09-18-2022 End: 09-18-[address] NONA RAYGOZA . Facility:[facility] Start: 09-16-2022 End: 09-17-[address] NONA RAYGOZA . Facility:[facility] Start: 09-16-2022 End: 09-17-2022 Encounter for preprocedural laboratory examination DR NONA RAYGOZA . Facility:[facility] Start: 09-05-2022 End: 09-05-2022 ambulatory ORA BOND . Facility:[facility] Start: 09-04-2022 End: 09-04-2022 ambulatory DANIEL MONTGOMERY Facility:[facility] Start: 09-04-2022 End: 09-04-2022 ambulatory Daniel Montgomery PRINCIPAL INVESTIGATOR.SHINGLE PACKER Work Phone: Urology Comment on above: NO SHOW (Primary Dx) Start: 09-04-2022 End: 09-04-2022 Telemedicine consultation with patient Daniel Montgomery PRINCIPAL INVESTIGATOR.SHINGLE PACKER Work Phone: [facility] Start: 08-28-2022 End: 08-29-[address] ERWIN MOORE Facility:[facility] Start: 08-22-2022 End: 08-24-[address] DOMINGO SNYDER . Facility:[facility] Start: 08-13-2022 End: 08-13-2022 ambulatory ORA BOND . Facility:[facility] Start: 07-31-2022 Encounter for cervic al smear to confirm findings of recent normal smear following initial abnormal smear DR JEFFERSON GIBBS . [facility] Start: 07-30-2022 End: 07-30-[address] [...] Phone: Start: 01-27-2025 CULTURE, BLOOD 1 [facility] sarahy Arora DO Work Phone: Start: 01-27-2025 CULTURE, BLOOD 1 [facility] sarahy Hemphill DO Work Phone: Start: 01-27-2025 Basic metabolic pane l calcium total Kyung Miester PRINCIPAL INVESTIGATOR - AUTOMATIC DRILLING MACHINE OPERATOR Work Phone: Start: 01-26-2025 Basic metabolic pane [...] DTaP/Tdap/Td vaccine (7 - Td or Tdap) [facility] Start: 05-29-2026 End: 05-29-2026 Patient encounter procedure 05/29/2026 1:15 PM EDT Office Visit [facility] [address] [place] [address] Patrick Leiva MD [address] [place] [address] [facility] [place] [facility] Start: 04-09-2026 End: 04-09-2026 Patient encounter procedure [facility] Start: 05-29-2025 End: 05-29-2025 Patient encounter procedure [facility] [facility] Comment on above: Arrived Start: 05-19-2025 Influenza vaccination Flu vaccine (Season Ended) [facility] Start: 05-15-2025 End: 05-15-2025 Patient encounter procedure 05/15/2025 3:30 PM EDT Office Visit [facility] [address] [place] [id number] Patrick Leiva MD [address] [place] [address] [facility] Start: 05-05-2025 Urine culture [facility] Start: 05-05-2025 Bacteria identified in Urine by Culture Urine Culture [facility] Start: 04-24-2025 End: 04-24-2025 Patient encounter procedure [facility] Comment on above: Arrived Start: 04-10-2025 End: 04-10-2025 Patient encounter procedure [facility] Comment on above: Arrived Start: 04-05-2025 End: 04-05-2025 Patient encounter procedure 04/05/2025 1:00 PM EDT Office Visit [facility] [address] [place] [id number] Jefferson Gibbs DO [address] [place] [address] Arrived [facility] Comment on above: Arrived Start: 01-22-2025 End: 01-22-2025 CYSTOSCOPY URETERAL STENT INSERTION CYSTOSCOPY URETERAL STENT INSERTION Renal calculus, left 01/22/2025 9:28 AM EDT [facility] Start: 01-21-2025 Urine culture [facility] Start: 01-21-2025 Bacteria identified in Urine by Culture Urine Culture [facility] Start: 12-02-2024 Urine culture [facility] Start: 12-02-2024 Bacteria identified in Urine by Culture Urine Culture [facility] Start: 06-19-2024 COVID-19 Vaccine ( season) COVID-19 Vaccine ( season) [facility] Start: 04-10-2024 [facility] Start: 04-08-2024 Referral to Assembly Line Supervisor [facility] Start: 04-08-2024 Hospital admission [facility] Start: 04-08-2024 [facility] Start: 06-19-2022 Influenza vaccination INFLUENZA (#1) [facility] Start: 10-19-2021 DEPRESSION ASSESSMENT DEPRESSION ASSESSMENT [facility] Start: 2021 HPV TESTING HPV TESTING [facility] Start: 2021 [facility] Start: 2012 PAP TESTING PAP TESTING [facility] Start: 2012 Screening for malignant neoplasm of cervix Pap smear [facility] Start: 2010 Urine microalbumin profile DTAP,TDAP,TD (1 - Tdap) [facility] Start: 2009 HEPATITIS C SCREENING HEPATITIS C SCREENING [facility] Start: 2009 Hepatitis C screening [facility]atitis [facility] screen [facility] Start: 2009 HIV SCREENING HIV SCREENING [facility] Start: 2006 HIV screening [facility] Start: 2004 Varicella vaccine (1 of 2 - 13+ 2-dose series) Varicella vaccine (1 of 2 - 13+ 2-dose series) [facility] Start: 2003 Depression Screen Depression Screen [facility] Start: 1995 Polio vaccine (4 of 4 - 4-dose series) Polio vaccine (4 of 4 - 4-dose series) [facility] Start: 03-14-1992 COVID-19 VACCINE (#1) COVID-19 VACCINE (#1) [facility] Start: 1991 HEPATITIS B (1 of 3 - 3-dose series) HEPATITIS B (1 of 3 - 3-dose series) [facility] End: 01-24-2025 Basic metabolic 2000 panel - Serum or Plasma Basic metabolic panel Lab Routine Daily for 3 Days starting 01/22/2025 until 01/24/2025, 1 completed [facility] Comment on above: Daily for 3 Days starting 01/22/2025 unt il 01/24/2025, 1 completed End: 01-24-2025 CBC W Auto Differential panel - Blood CBC with Auto Differential Lab Routine Daily for 3 Days starting 01/22/2025 until 01/24/2025 [facility] Comment on above: Daily for 3 Days starting 01/22/2025 unt il 01/24/2025 Culture, Blood 1 [facility] Culture, Urine [employer] Comment on above: Release Upon Ordering for 1 Occurrences starting 01/22/2025 Cytology Cervical or vaginal smear or scraping study Pap Smear Pathology and Cytology Routine Well woman exam with routine gynecological exam Ordered: 04/05/2025 [employer] Work Phone: Comment on above: Ordered: 04/05/2025 Dermatopathology exam Dermatopat hology exam Pathology and Cytology Timed Neoplasm of unspecified behavior of bone, soft tissue, and skin Release Upon Ordering for 1 Occurrences starting 04/10/2025 [employer] Phone: Comment on above: Release Upon Ordering for 1 Occurrences starting 04/10/2025 Dermatopathology exam Dermatopat hology exam Pathology and Cytology Timed Neoplasm of unspecified behavior of bone, soft tissue, and skin Release Upon Ordering for 1 Occurrences starting 05/15/2025 [employer] Work Phone: Comment on above: Release Upon Ordering for 1 Occurrences starting 05/15/2025 End: 01-22-2025 Glucose [Mass/volume] in Serum or Plasma POCT Glucose Point of Care Testing Routine One Time for 1 Occurrences starting 01/22/2025 until 01/22/2025 [employer] Work Phone: Comment on above: One Time for 1 Occurrences starting 03/2025 until 01/22/2025 Human papilloma viru s DNA [Presence] in Unspecified specimen by Probe with amplification HPV DNA probe, amplified Microbiology Routine Well woman exam with routine gynecological exam Ordered: 04/05/2025 [facility] Comment on above: Ordered: 04/05/2025 Oxygen therapy [Mini mum Data Set] Initiate Oxygen Therapy Protocol Respiratory Care Routine As Needed until discontinued starting 01/21/2025 [facility] Comment on above: As Needed until discontinued starting Oxygen therapy [Mini mum Data Set] Initiate Oxygen Therapy Protocol Respiratory Care Routine As Needed until discontinued starting 01/26/2025 [facility] Comment on above: As Needed until discontinued starting Patient Education Bipolar Disord er (DC) [facility] Health DC Instructions Know your Meds [facility] Work Phone: Patient referral [facility] Work Phone: End: 01-22-2025 Stone Analysis Stone Analysis Microbiology Routine One Time for 1 Occurrences starting 01/22/2025 until 01/22/2025 [employer] Work Phone: Comment on above: One Time for 1 Occurrences starting 03/2025 until 01/22/2025 Stone Analysis Stone Analysis Microbiology [employer] Label Print 01/22/2025 4:44 AM EDT [facility] End: 01-26-2025 Stone Analysis Stone Analysis Microbiology Routine One Time for 1 Occurrences starting 01/26/2025 until 01/26/2025 [facility] Comment on above: One Time for 1 Occurrences starting 01/17 until 01/26/2025 Immunizations Immunization Date Immunization Notes Care Provider Beata moore 08-01-2019 influenza virus vaccine, unspecified formulation Nona RAYGOZA [facility] 08-09-2018 tetanus toxoid, redu franco diphtheria toxoid, and acellular pertussis vaccine, adsorbed Nona RAYGOZA [facility] 08-08-2018 influenza virus vaccine, unspecified formulation Nona RAYGOZA [facility] 06-19-2004 hepatitis B vaccine, pediatric or pediatric/adolescent dosage Nona RAYGOZA [facility] 03-27-2004 hepatitis B vaccine, pediatric or pediatric/adolescent dosage Nona RAYGOZA [facility] 12-18-2003 hepatitis B vaccine, pediatric or pediatric/adolescent dosage Nona RAYGOZA [facility] 12-18-2003 measles, mumps and rubella virus vaccine Nona RAYGOZA [facility] 04-10-1993 DTaP, unspecified formulation [employer] [facility] 04-10-1993 poliovirus vaccine, unspecified formulation [employer] [facility] 12-28-1992 Hib, unspecified formulation Nona RAYGOZA [facility] 12-28-1992 measles, mumps and rubella virus vaccine Nona [employer] [facility] 03-26-1992 Hib, unspecified formulation Nona RAYGOZA [facility] 01-18-1992 Hib, unspecified formulation Nona RAYGOZA [facility] 1991 Hib, unspecified formulation Nona RAYGOZA [facility] Payers Date Payer Category Payer Self-pay 2023 Private Health Insurance [employer] [id number] 2023 Unknown [id number] 2021 Medicaid [place] MEDICAID TERM 09/17 [facility] MEDICAID [id number] 2021-Present [phone] [address] [place] [address] Medicaid [id number] 1991 Unknown [id number] 2.16.840.1.802901.3.579.2. 593 1991 Unknown [id number] 2.16.840.1.379268.3.579.2. 593 1991 Unknown [id number] 2.16.840.1.093399.3.579.2. 593 1991 Unknown [id number] 2.16.840.1.987414.3.579.2. 593 1991 Unknown [id number] 2.16.840.1.540419.3.579.2. 593 1991 Unknown [id number] 2.16.840.1.242635.3.579.2. 593 1991 Unknown [id number] 2.16.840.1.953240.3.579.2. 593 1991 Unknown [id number] 2.16.840.1.140331.3.579.2. 593 1991 Unknown [id number] 2.16.840.1.102379.3.579.2. 593 1991 Unknown [id number] 2.16.840.1.032394.3.579.2. 593 1991 Unknown [id number] 2.16.840.1.232787.3.579.2. 593 1991 Unknown [id number] 2.16.840.1.969146.3.579.2. 593 1991 Unknown [id number] 2.16.840.1.365816.3.579.2. 593 1991 Unknown [id number] 2.16.840.1.986557.3.579.2. 593 1991 Unknown [id number] 2.16.840.1.984979.3.579.2. 593 1991 Unknown [id number] 2.16.840.1.029311.3.579.2. 593 1991 Unknown [id number] 2.16.840.1.177178.3.579.2. 727 1991 Unknown [id number] 2.16.840.1.568093.3.579.2. 727 1991 Unknown [id number] 2.16.840.1.377667.3.579.2. 727 1991 Unknown [id number] 2.16.840.1.668580.3.579.2. 727 1991 Unknown [id number] 2.16.840.1.569529.3.579.2. 174 1991 Unknown [id number] 2.16.840.1.520280.3.579.2. 175 1991 Unknown [id number] 2.16.840.1.634991.3.579.2. 175 1991 Unknown [id number] 2.16.840.1.917757.3.579.2. 175 1991 Unknown [id number] 2.16.840.1.941423.3.579.2. 175 1991 Unknown [id number] 2.16.840.1.362760.3.579.2. 718 1991 Unknown [id number] 2.16.840.1.291049.3.579.2. 1259 1991 Unknown [id number] 2.16.840.1.149736.3.579.2. 1259 1991 Unknown [id number] 2.16.840.1.002138.3.579.2. 1259 1991 Unknown [id number] 2.16.840.1.643699.3.579.2. 1259 1959 Medicaid [id number] 1959 Self-pay [id number] 1959 Unknown [id number] Unknown [id number] 2.16.840.1.999177.3.579.2. 531 Unknown [id number] 2.16.840.1.059197.3.579.2. 531 Unknown [id number] 2.16.840.1.569228.3.579.2. 531 Social History Date Type Detail [facility] Start: 1990 Sex Assigned At Not on file C [facility] Start: 08-20-2021 End: 04-10-2025 Tobacco smoking status Never smoked tobacco (finding) [facility] Tobacco smoking status Never [facility] Start: 01-22-2025 End: 05-15-2025 Sex Assigned At Female [facility] Start: 1990 Sex Assigned At Female F [facility] Start: 11-24-2024 End: 12-04-2024 Sex Female (finding) [facility] Start: 01-22-2025 End: 04-10-2025 Tobacco use and exposure Smokeless tobacco non-user [facility] Start: 01-22-2025 End: 01-27-2025 Alcoholic beverage intake Ex-drinker (finding) [facility] Start: 01-22-2025 End: 05-15-2025 History of Social function [facility] Has the [employer], or [employer] threatened to shut off services in your home in past 12Mo No [place] (I/We) worried wheth er (my/our) food would run out before (I/we) got money to buy more. Never true [employer] [facility] Start: 01-10-2024 End: 05-29-2025 Alcoholic beverage intake Lifetime non-drinker (finding) [facility] Medical Equipment Procedure Code Equipment Code Equipment Origin al Text Equipment Identifier Dates Stent Uret 6fr L 26cm Percflx Hydr+ Tapr Tip Grad - [id number] , [id number] FDA Start: 01-22-2025 Stent Uret 6fr L 26cm Percflx Hydr+ Dbl Pgtl Thrd 2 - [id number] ()[id number] , [id number], [id number] FDA Start: 01-27-2025 Goals Date Patient Goal Desired Activity /State Functional Status Date Assessment Result Facility 04-10-2024 Functional status [facility] at [facility] Work Phone: 03-20-2023 Functional Status N/A [facility] Mental Status Date Assessment Result Facility 04-10-2024 Cognitive function Cognitive Sta tus Patient at [facility] Work Phone: Clinical [...] year, skin check documented in this encounter [facility] 05-15-2025 History of Present illness Narrative [...] nevus Check Margins: Yes Previous accession number: [id number] 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, soft tissue, and skin Plan: Skin excision, Skin repair Follow up: 14 days for s/r documented in this encounter [facility] 04-24-2025 History of Present illness Narrative [...] Visit: as scheduled documented in this encounter [facility] 04-10-2025 History of Present illness Narrative [...] OF RIGHT UPPER EYELID Right Upper Eyelid Eudora papule Favor possible stye, recommend patient continue [...] Visit: 2 weeks documented in this encounter [facility] 04-05-2025 History of Present illness Narrative [...] (BMI) of 40.1 to 44.9 in adult ([facility] 04/10/2023 Encounter for follow-up examination after completed treatment for conditions other than malignant neoplasm 04/10/2023 IUD contraception 04/10/2023 Menorrhagia with regular cycle 04/10/2023 Anti-M isoimmunization affecting , 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[facility]) 03/18/2018 Anxiety 07/26/2020 Bipolar disorder ([facility]) 06/01/2023 Dysuria 06/01/2023 Entrapment of left ulnar nerve 06/01/2023 Feeling of incomplete bladder emptying 06/01/2023 Flank pain 06/01/2023 Frequency of urination 06/01/2023 History of chlamydia 07/26/2020 History of gestational diabetes 07/26/2020 History of kidney stones 06/01/2023 Hypercalciuria 06/01/2023 Hyperoxaluria 06/01/2023 Intrauterine ([facility]) 02/18/2018 Lesion of ulnar nerve 06/01/2023 Mass of scalp 06/01/2023 Muscle pain 06/01/2023 Microhematuria 06/01/2023 Astigmatism 05/05/2017 Nocturia 06/01/2023 Overweight 06/01/2023 Pyelonephritis 06/01/2023 Kidney stone 06/01/2023 Retroflexion of uterus 06/01/2023 Sprain of calcaneofibular ligament 06/01/2023 Streptococcal pharyngitis 06/01/2023 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/01/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 06/01/2023 Superficial thrombophlebitis 06/01/2023 Term delivery with labor in third trimester ([facility]) 08/06/2018 Urge incontinence 06/01/2023 Urinary urgency 06/01/2023 UTI (urinary tract infection) 06/01/2023 Mass of left breast 01/08/2024 Resolved Ambulatory Problems Diagnosis Date Noted Encounter for gynecological examination (general) (routine) without abnormal findings 04/10/2023 Past Medical History: Diagnosis Date Abnormal Pap smear of cervix Anxiety and depression Bipolar 1 disorder (HCC) Bladder prolapse, congenital ([facility]) Dysplasia of cervix S/P VH (vaginal hysterectomy) 05/06/2023 Yeast infection HISTORY PAST MEDICAL HISTORY SOCIAL HISTORY Past Medical History: Diagnosis Date Abnormal Pap smear of cervix Anxiety and depression Bipolar 1 disorder (HCC) Bladder prolapse, congenital ([facility]) Dysplasia of cervix History of [...] nursing note reviewed. Exam conducted with a sleeve turner present. Vitals: Estimated body mass index is [...] them. Patient can also view results via [employer]. I reinforced importance of condom use for [...] Jefferson Gibbs DO documented in this encounter [facility] 01-29-2025 History of Present illness Narrative Patient given all discharge instructions and education. Patient and present for teaching. Patient voices she still has antibiotic at home and was instructed to continue to taking them. Patient also instructed to pull stent. Awaiting scripts from pharmacy. Images from the original note were not included. [facility] Office: [phone] Duncan Shelton DO, Rad Burks DO, Gerald Le DO, Kyle Medina DO, Felipe Sandhu MD, Yancy Padgett MD, Sonia Alvarado MD, Kerri Meza MD, Arron Olson MD, Rebecca Cox MD, eDneen Kaur MD, Nathen Hemphill DO, Lynda Jimenez [...] Cecelia Pearson, KYUNG, Ivy Cortes, WAYNE, Felicita mR, WAYNE, Pau Viera, WAYNE [facility] IN-PATIENT SERVICE [facility] Progress Note 01/29/2025 9:05 AM Name: Diana Barriga Acct: [id number] Room: [address] [place] [address] Day: 3 Admit Date: 01/26/2025 5:25 PM [...] results for input(s): LABALBU , LABA1C , [id number] , FT4 , TSH , AST , ALT , LDH , GGT , ALKPHOS , BILITOT , BILIDIR , AMMONIA , AMYLASE , LIPASE , LACTATE , CHOL , HDL , CHOLHDLRATIO , TRIG , VLDL , KCM88FT , PHENYTOIN , PHENYF , URICACID , POCGLU in the last 72 hours. Invalid input(s): PROT , Q0MBHHZ , LABGGT , LDLCHOLESTEROL ABG:No results found for: POCPH , PHART , PH , POCPCO2 , OVT7TCN , PCO2 , POCPO2 , PO2ART , PO2 , POCHCO3 , TEY2VYN , HCO3 , NBEA , PBEA , BEART , BE , THGBART , THB , HVJ3XUD , NKVD6EKY , D2KIJTVY , O2SAT , FIO2 Lab Results Component [...] DVT ppx Medical Decision Making: Medium Nathen Hempihll DO 01/29/2025 9:05 AM Images from the original note were not included. [facility] Office: [phone] Duncan Shelton DO, Rad Burks DO, Gerald Le DO, Kyle Medina DO, Felipe Sandhu MD, Yancy Padgett MD, Sonia Alvarado MD, Kerri Meza MD, Arron Olson MD, Rebecca Cox MD, Deneen Kaur MD, Nathen Hemphill DO, Lynda Jimenez MD, Everette Wiggins MD, Andrey Shelton DO, Dorita Leigh MD, Daneglo Fernandez DO, Ciara Sales MD, Elaine Silverman MD, Nasra Smiley MD, Jace Haji MD, Dl Graham MD, Filomena Alexander MD, Lea Junior MD, Luis Felipe Delacruz MD, Tavares Cardoza MD, Casey Chavez DO, Analia Ring MD, Lyle Nguyen MD, Nathen Rogers MD, Cata Rogers MD, Johnathon Cerda MD, Makenzie Alberts, SHINGLE PACKER, [place], SHINGLE PACKER, Casey Mercer, SHINGLE PACKER, Galilea Bradshaw, [facility], Ritika Villaseñor, SHINGLE PACKER, Indu Montoya, SHINGLE PACKER, Angelica Chaney, SHINGLE PACKER, Vivian Kahn, SHINGLE PACKER, Garima Balbuena, PA-C, Kyung Barkley, SHINGLE PACKER, Hetal Morris, SHINGLE PACKER, Yvette Canchola, SHINGLE PACKER, Gail Greene, SHINGLE PACKER, Dominguez Nunez, PA-C, Mar Sanchez, SHINGLE PACKER, Cecelia Pearson, GEAR GR[employer], Ivy Cortes, SHINGLE PACKER, Felicita Rm, SHINGLE PACKER, Pau Viera, SHINGLE PACKER [facility] IN-PATIENT SERVICE [facility] Progress Note 01/28/2025 1:05 PM Name: Diana Barriga Acct: [id number] Room: 0321/0321-02 Day: 2 Admit Date: 01/26/2025 [...] results for input(s): LABALBU , LABA1C , A6SASRI , FT4 , TSH , AST , ALT , LDH , GGT , ALKPHOS , BILITOT , BILIDIR , AMMONIA , AMYLASE , LIPASE , LACTATE , CHOL , HDL , CHOLHDLRATIO , TRIG , VLDL , GML61WY , PHENYTOIN , PHENYF , URICACID , POCGLU in the last 72 hours. Invalid input(s): PROT , N4RLAVM , LABGGT , LDLCHOLESTEROL ABG:No results found for: POCPH , PHART , PH , POCPCO2 , EHI1DEJ , PCO2 , POCPO2 , PO2ART , PO2 , POCHCO3 , UGO8YQR , HCO3 , NBEA , PBEA , BEART , BE , THGBART , THB , YMS0KAH , KNVP0WKO , L9EGVBQJ , O2SAT , FIO2 Lab Results Component [...] 0.9 0.7 Recent Labs 01/26/25 1753 [facility]U [facility]* PHUR 6.5 WBCUA 20 TO 50 RBCUA [...] mass loss Fluid Accumulation: Unable to assess Channel Layer Strength: Not Performed Nutrition Assessment: 34 y.o.F [...] Measures: Height: 167.6 cm (5' 5.98 ) [place] Body Weight (IBW): 130 lbs (59 kg) Current Body Weight: 81.6 kg (179 lb 14.3 oz), 138.4 % IBW. Current BMI (kg/m2): 29 Estimated Daily Nutrient Needs: Energy Requirements Based On: Formula Weight Used for Energy Requirements: Current Energy (kcal/day): 7026-3968 kcals/day Weight Used for Protein Requirements: Current Protein (g/day): 82-92 g/day Method Used for Fluid Requirements: 1 ml/kcal Fluid (ml/day): 7534-3918 ml/day Nutrition Diagnosis: Inadequate oral intake related [...] determine Anastasiya Medel RDN, LD, MS Contact: [phone] Images from the original note were not included. [facility] Office: [phone] Duncan Shelton DO, Rad Burks DO, Gerald [...] Rogers MD, Johnathon Cerda MD, Makenzie Alberts, SHINGLE PACKER, [place], SHINGLE PACKER, Casey Mercer, SHINGLE PACKER, Galilea Bradshaw, [facility], Ritika Villaseñor, SHINGLE PACKER, Indu Montoya, SHINGLE PACKER, Angelica Chaney, SHINGLE PACKER, Vivian Kahn, SHINGLE PACKER, Garima Balbuena, PA-C, Kyung Barkley, SHINGLE PACKER, Hetal Morris, SHINGLE PACKER, Yvette Canchola, SHINGLE PACKER, Gail Greene, SHINGLE PACKER, Dominguez Nunez, PA-C, Mar Sanchez, SHINGLE PACKER, Cecelia Pearson, GEAR GRINDER, Ivy Cortes, SHINGLE PACKER, Felicita Rm, SHINGLE PACKER, Pau Viera, SHINGLE PACKER [facility] IN-PATIENT SERVICE [facility] Progress Note 01/27/2025 9:31 AM Name: Diana Barriga Acct: [id number] Room: 0321/0321-02 Day: 1 Admit Date: 01/26/2025 [...] results for input(s): LABALBU , LABA1C , M4YKSSS , FT4 , TSH , AST , ALT , LDH , GGT , ALKPHOS , BILITOT , BILIDIR , AMMONIA , AMYLASE , LIPASE , LACTATE , CHOL , HDL , CHOLHDLRATIO , TRIG , VLDL , ESC94TG , PHENYTOIN , PHENYF , URICACID , POCGLU in the last 72 hours. Invalid input(s): PROT , R7ABXTY , LABGGT , LDLCHOLESTEROL ABG:No results found for: POCPH , PHART , PH , POCPCO2 , HSQ6SYR , PCO2 , POCPO2 , PO2ART , PO2 , POCHCO3 , TLV7VRP , HCO3 , NBEA , PBEA , BEART , BE , THGBART , THB , QTJ5QEU , KDLY8LYD , H3KGHARX , O2SAT , FIO2 Lab Results Component [...] for DVT ppx Medical Decision Making: Medium Nahten Hemphill DO 01/27/2025 9:31 AM Urology Progress [...] CREATININE 0.9 Recent Labs 01/26/25 1753 [facility]ORU [facility]* PHUR 6.5 WBCUA 20 TO 50 RBCUA [...] PM EDT documented in this encounter [facility] 01-29-2025 Hospital course Narrative Images from the original note were not included. [facility] Office: [phone] Duncan Shelton DO, Rad Burks DO, Gerald [...] Rogers MD, Johnathon Cerda MD, Makenzie Alberts, SHINGLE PACKER, [place], SHINGLE PACKER, Casey Mercer, SHINGLE PACKER, Galilea Bradshaw, [facility], Ritika Villaseñor, SHINGLE PACKER, Indu Montoya, SHINGLE PACKER, Angelica Chaney, SHINGLE PACKER, Vivian Kahn, SHINGLE PACKER, Garima Balbuena, PAAilynC, Kyung Barkley, SHINGLE PACKER, Hetal Morris, SHINGLE PACKER, Yvette Canchola, SHINGLE PACKER, Gail Greene, SHINGLE PACKER, Dominguez Nunez PAAilynC, Mar Sanchez, SHINGLE PACKER, Cecelia Pearson, [facility], Ivy Cortes, SHINGLE PACKER, Felicita Rm, SHINGLE PACKER, Pau Viera, SHINGLE PACKER [facility] IN-PATIENT SERVICE [facility] Discharge Summary Patient ID: Diana Barriga : 1990 ACCOUNT: [id number] Patient's PCP: Domingo Snyder MD Admit Date: [...] Physician Follow Up: Domingo Snyder MD [address] [facility] [address] Schedule an appointment as soon as possible for a visit in 1 week(s) Adonis Guerra MD [address] [place] [address] Follow up Renal US in 6 [...] narcotics Please call attending physician or hospital safety grooving machine operator with questions Call or Present [...] this patient's care. documented in this encounter [facility] 01-28-2025 Hospital Discharge instructions Glen Desai MD [...] narcotics Please call attending physician or hospital safety grooving machine operator with questions Call or Present [...] call with questions. documented in this encounter [facility] 01-22-2025 History of Present illness Narrative CLINICAL [...] paid by clover documented in this encounter [facility] 01-22-2025 Hospital course Narrative Images from the original note were not included. [facility] Office: [phone] Duncan Shelton DO, Rad Burks DO, Gerald [...] Barkley CNP, Hetal Morris CNP, Yvette Canchola, SHINGLE PACKER, Gail Greene, SHINGLE PACKER, Dominguez Nunez PA-C, Mar Sanchez CNP, Cecelia Pearson, KYUNG, Ivy Cortes CNP, Felicita Rm, WAYNE, Pau Viera, WAYNE [facility] IN-PATIENT SERVICE [facility] Discharge Summary Patient ID: Diana Barriga : 1990 ACCOUNT: [id number] Patient's PCP: Domingo Snyder MD Admit Date: [...] who was transferred to our hospital from [facility] for evaluation of flank pain. CT [...] Home Physician Follow Up: Adonis Guerra MD [address] [place] [address] Schedule an appointment as soon as [...] Your Medications These medications were sent to [facility] - [place], [place] - [address] [facility] - P [phone] - F [phone] [facility] [address] hyoscyamine 0.125 MG tablet oxyCODONE 5 MG [...] patient's care. v documented in this encounter [facility] 01-22-2025 Hospital Discharge instructions Zia Covington [...] narcotics Please call attending physician or hospital safety grooving machine operator with questions Call or Present to ED if fever (> 101F), intractable nausea vomiting or pain. Rx e-prescribed Pt should follow up with Dr. Guerra, in 1-2 weeks, for definitive stone treatment, call to confirm appointment documented in this encounter [facility] 04-10-2024 Discharge summary Note Date/Time April 10, 2024 7:10am [facility] [address] [place] [address] Discharge Summary Signed Patient: Diana Barriga MR#: [id number] : 1990 Acct:[id number] Age/Sex: 33 / F Adm Date: 4 Loc: Room: [address] [place] [address]: Arnulfo Aviles MD Copies to: [...] Dr. Fenton but wants to switch to [place]. Along with this patient is in marriage counseling with her current and that today's session was not good. Patient stated she needs to be home to take care of her kids, the custody charlton, and her marriage. Patient upset because she missed her son's play and has plans to take kids to [place] tomorrow. Patient denies any suicidal ideation denies hallucinations denies racing thoughts. Patient reports that there is no changes in her appetite or sleep. Patient reports that she feels fine. She has tried a lot of medications in the past and believes none of them have worked. He is going to [facility] for psych therapy. He wants to try [...] She has an appointment coming up with [facility]. She deniedrecent suicide attempts or self [...] Restriction Diet: Regular Instructions: Bipolar Disorder (DC), [facility] Behavioral Health DC Instructions, [...] signed by Arnulfo Aviles MD> 04/10/24 0929 [facility] Work Phone: [phone] 498-221706-22-2024 History and physical note Author Arnulfo ornelas [facility] April 09, 2024 9:09am Note Date/Time April 09, 2024 8:43 am [facility] [address] [place] [address] Psychiatry H&P Signed Patient: Diana Barriga MR#: [id number] : 1990 Acct:[id number] Age/Sex: 33 / F Adm Date: 4 Loc: Room: [address] [place] [address] Type: ADM IN Attending Dr: Arnulfo Aviles [...] Dr. Fenton but wants to switch to [place]. Along with this patient is in marriage counseling with her current and that today's session was not good. Patient stated she needs to be home to take care of her kids, the custody charlton, and her marriage. Patient upset because she missed her son's play and has plans to take kids to [place] tomorrow. Patient denies any suicidal ideation denies hallucinations denies racing thoughts. Patient reports that there is no changes in her appetite or sleep. Patient reports that she feels fine. She has tried a lot of medications in the past and believes none of them have worked. He is going to [facility] for psych therapy. He wants to try therapy before any medications. 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: [employer] Review of symptoms: Constitutional: Denies chills [...] suicidality Insight: Intact Judgment: Intact [facility] Medical History (Updated 08/14/22 @ 08:17 by [...] provided. Documented By: Arnulfo Aviles MD 4 0855 Signed By: <Electronically signed by Arnulfo Aviles MD> 04/09/24 0909 [facility] Work Phone: [phone] 210-997106-02-2023 Hospital Discharge instructions Follow Up Care 03/20/2023 11:51:58 With:IDALMIS BORDEN, Nona Turner, URL Address: [address] [place], [place] [id number]- When: Unknown [facility] 06-02-2023 Hospital Discharge instructions Patient Education [...] include: ?8 oz (237 mL) of milk, tuusdcj-phooouwvspps-wvska milk, and calcium- fortifiedfruit juice. Calcium-fortified means [...] ?Spinach (cooked), rhubarb, beets, sweet potatoes, and Jamaican chard. ?Peanuts. ?Potato chips, tajik fries, and baked potatoes with skin on. ?Nuts and nut products. ?Chocolate. If you regularly take a diuretic medicine, make sure to eat at least 1 or 2 servings of fruits or vegetables that are high in potassium each day. These include: ?Avocado. ?Banana. ?[place], prune, carrot, or tomato juice. ?Baked potato. [...] magnesium, fish oil, or vitamin B6. Take sgun-dnq-bablztb and prescription medicines only as told by [...] Casseroles. Pizza. Lasagna. Frozen meals. Potato chips. Colombian fries. The items listed above may not [...] provider. Document Revised: 06/16/2022 Document Reviewed: 06/16/2022 check24 Patient Education 2022 [employer] Follow Up Care 12/26/2022 08:46:46 With:IDALMIS BORDEN, Nona Turner, URL Address: [facility] [address], [place] [address]- When: Unknown [facility] 01-20-2023 NoteOPERATIVE NOTE OPERATION DATE: 11/07/2022 PROCEDURE: Mery endometrial ablation with LEEP. PREOPERATIVE DIAGNOSIS: Cervical dysplasia, menorrhagia. POSTOPERATIVE DIAGNOSIS: Cervical dysplasia, menorrhagia. ANESTHESIA: General. SURGEON: Jefferson Gibbs D.O. POLICY LOAN CALCULATOR: None. BLOOD LOSS: 50 mL. URINE OUTPUT: [...] taken to Recovery Room in stable condition.[id number] Discharge instructions Follow Up Care 09/25/2022 13:54:04 With:IDALMIS BORDEN, Nona Turner, DANYA Address: [address] [place], [place] [id number]- When: Unknown [facility] 12-01-2022 NoteOPERATIVE NOTE OPERATION DATE: 09/18/2022 [...] usual fashion. I started by passing a 22-Colombian Olympus cystoscope per urethra and into the [...] removed. She was then transferred to a gurperkasie and wheeled to PACU in stable condition.[id number] NoteHNO ID: [id number] Author: Daniel Montgomery APRN.[facility] Service: ? Author Type: Nurse Practitioner Type: Progress Notes Filed: 09/04/2022 7:46 AM Note Text: The patient did not show up for this appointment. The patient did not show up for this appointment.[id number] History of Present illness Narrative* Daniel Montgomery APRN.SHINGLE PACKER - 09/04/2022 7:40 AM EST The patient did not show up for this appointment. The patient did not show up for this appointment. [facility] NotePROCEDURE: XR ANKLE LT MIN 3 V COMPARISON: None. HISTORY: Sprain of calcaneofibular ligament FINDINGS: BONES:No fracture, acute abnormality, or significant arthropathy. SOFT TISSUES:Extensive lateral soft tissue swelling EFFUSION:None visible. OTHER: Negative. IMPRESSION: Lateral soft tissue swelling. No acute fracture Electronically authenticated by: GLEN PEREZ Date: 2022-07-03 07:09[facility] Future Appointments Appointment Date:03/20/2023 10:15:00 AM Scheduled Provider:Nona RAYGOZA MD Location:[facility] Appointment Type:URO Office Visit [facility] evaluation + Plan note Future Appointments Appointment Date:12/04/2023 09:45:00 AM Scheduled Provider:Nona RAYGOZA MD Location:[facility] Appointment Type:URO Office Visit Diagnostic Tests Pending * Electrolyte Panel 03/20/23 [facility] evaluation note* Diagnosis NO SHOW- Primary [facility]* Diagnosis Onset Date Resolution Status Bipolar disorder acute [facility] Work Phone: evaluation noteNo assessment information available [facility] Work Phone: evaluation note* Diagnosis VUR (vesicoureteric reflux) Vesicoureteral reflux, unspecified or without reflux nephropathy [facility]* Diagnosis Left ureteral calculus- Primary Calculus of ureter Renal calculus, left Calculus of kidney Acute postoperative pain Other acute postoperative pain Acute cystitis without hematuria Acute cystitis Acute postoperative pain Other acute postoperative pain Urinary tract obstruction by kidney stone Calculus of kidney [facility]* Diagnosis Hydronephrosis with renal calculous obstruction- Primary Bilateral ureteral calculi Acute postoperative pain Other acute postoperative pain Left ureteral calculus Calculus of ureter S/P cystoscopy with ureteral stent placement Pyelonephritis Pyelonephritis, unspecified documented in this encounter [facility] [employer] [facility]* Diagnosis Well woman exam with routine gynecological exam Routine gynecological examination H/O: hysterectomy Acquired absence of both cervix and uterus Night sweats Generalized hyperhidrosis [facility] Diagnosis Hordeolum externum of right upper eyelid- Primary Neoplasm of unspecified behavior of bone, soft tissue, and skin [facility]* Diagnosis Encounter for removal of sutures- Primary [facility]* Diagnosis Neoplasm of unspecified behavior of bone, soft tissue, and skin- Primary [facility]* Diagnosis Encounter for removal of sutures- Primary [facility] Narrative No data available for this section [facility] progress note No data available for this section [facility] reason for referral (narrative)No reason for referral [facility] Work Phone: Reason for visit Narrative* Imaging (Routine) - Open Specialty Diagnoses / Procedures Referred By Luis grigsby Referred To Contact Radiology Diagnoses VUR (vesicoureteric reflux) Procedures FL VOIDING URETHROCYSTOGRAM S&I Adonis Guerra MD [address] [place] [address] Phone: tel: fax: Referral ID Status Reason Start Date Expiration Date Visits Re quested Visits Authorized [id number] Open 01/09/2025 01/09/2026 1 1 [facility] [employer] [facility] for visit Narrative* Auth/Cert Specialty Diagnoses / Procedures Referred By Luis grigsby Referred To Contact Diagnoses Urinary tract obstruction by kidney stone UTI (urinary tract infection) Ureteral calculi Luis Felipe Delacruz MD [address] [facility] [place] [address] Phone: tel: fax: [facility] [address] [place] [address] Referral ID Status Reason Start Date Expiration Date Visits Re quested Visits Authorized [id number] [facility] [employer] [facility] Narrative* Auth/Cert Specialty Diagnoses / Procedures Referred By Contac t Referred To Contact Diagnoses Hydronephrosis, left Luis Felipe Delacruz MD [address] [place] [address] Phone: tel: fax: [facility] [address] [place] [address] Referral ID Status Reason Start Date Expiration Date Visits Re quested Visits Authorized [id number] 1 1 [facility] Summary Purpose Family History Relationship Condition Age [...] or prosecute any alcohol or drug abuse patient.[facility] Reason for Visit (unrecogniz ed section and content) Reason Onset Date Comments No Show 09/04/2022 No show Reason Comments Gynecologic Exam Reason Comments Suspicious Skin Lesion Reason Comments Suture / Staple Removal Care Teams (unrecognized sec tion and content) 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 Specialty Start Date End Date Domingo Snyder MD [address] [place] [address] Referring Family Medicine 09/01/22 Team Status: Active Member Role Status Dates Domingo nSyder MD Primary Care Provider Active Team Status: [...] December 02, 2024 End: December 02, 2024 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 Specialty Start Date End Date Domingo Snyder MD [address] [place] [address] PCP - General Family Medicine 01/05/25 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 Specialty Start Date End Date Domingo Snyder MD [address] [place] [address] PCP - General Family Medicine 01/05/25 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 Specialty Start Date End Date Domingo Snyder MD [address] [place] [id number] PCP - General Family Medicine 01/05/25 Team Status: Inactive Member Role Status Dates Javi Tanner PA-C Attending Provider Active Start: January 21, 2025 End: January 21, 2025 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 Specialty Start Date End Date Domingo Snyder MD [address] [place] [address] PCP - General Family Medicine 01/05/25 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 Specialty Start Date End Date Domingo Snyder MD [address] [place] [address] PCP - General Family Medicine 04/13/23 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 Specialty Start Date End Date Domingo Snyder MD [address] [place] [address] PCP - General Family Medicine 04/13/23 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 Specialty Start Date End Date Domingo Snyder MD [address] [place] [place] [address] PCP - General Family Medicine 04/13/23 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 Specialty Start Date End Date Domingo Snyder MD [address] [place] [facility] [address] PCP - General Family Medicine 04/13/23 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 Specialty Start Date End Date Domingo Snyder MD [address] [place] [address] PCP - General Family Medicine 04/13/23 Team Status: Inactive Member Role Status Dates Vj Fraire DO Attending Provider Active Start: May 05, 2025 End: May 05, 2025 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 Specialty Start Date End Date Domingo Snyder MD [address] [place] [address] PCP - General Family Medicine 04/13/23 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 Start Date End Date Domingo Snyder MD [address] [place] [address] PCP - General Family Medicine 04/13/23 INFORMATION SOURCE (unrecogn ized section and content) DATE CREATED AUTHOR 09/06/2022 [facility] DATE CREATED AUTHOR AUTHOR'S ORGANIZ ATION 02/19/2023 [facility] DATE CREATED AUTHOR AUTHOR'S ORGANIZ ATION 12/06/2023 [facility] DATE CREATED AUTHOR AUTHOR'S ORGANIZ ATION 10/05/2024 [facility] DATE CREATED AUTHOR AUTHOR'S ORGANIZ ATION 01/16/2025 [facility] DATE CREATED AUTHOR AUTHOR'S ORGANIZ ATION 02/03/2025 [facility] DATE CREATED AUTHOR AUTHOR'S ORGANIZ ATION 04/05/2025 [facility] DATE CREATED AUTHOR AUTHOR'S ORGANIZ ATION 05/09/2025 [facility] DATE CREATED AUTHOR AUTHOR'S [...] mL IV syringe (COMPLETED) 2,000 mg, IntraVENous, 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 educated on importance and intent)0928 ([facility] Hold - Provider: [facility] - Reason: Unreviewed Transfer Orders)1027 ([facility] Unhold - Provider: Anastasiya Coates [...] (Given - Provid er: Anastasiya Coates RN)927 ([facility] Hold - Provider: Tamy Autohold - Reason: Unreviewed Transfer Orders)1027 ([facility] [facility] Unhold - Provider: Anastasiya Coates RN) Continuous Medication Order 01/20/2025 01/21/2025 01/22/2025 0.9 % sodium chloride infusion (CANCELED) IntraVENous, at 150 mL/hr, CONTINUOUS, Starting on 01/22/25 at 0015 0002 (New Bag - Prov ider: Aundrea Beltre RN)0557 (New Bag - Provider: Aundrea Beltre, FELA)0928 ([facility] Hold - Provider: [facility] - Reason: Unreviewed Transfer Orders)1027 ([facility] Unhold - Provider: Anastasiya Coates RN) PRN Medication Order 01/20/2025 01/21/2025 01/22/2025 acetaminophen (TYLENOL) suppository 650 mg(Linked Group 1) 650 mg, Rectal, EVERY 6 HOURS PRN, Starting on 01/21/25 at 2346, Until Discontinued, Pain Mild (1-3), allowed for higher pain score per patient request, Fever, For temp greater than 100.4 F (38 C), Administer if oral route cannot be used. 09 ([facility] Hold - Pro vider: [facility] - Reason: Unreviewed Transfer Orders)102 ([facility] Unhold - Provider: Anastasiya Coates [...] from all sources in 24 hours. 927 ([facility] Hold - Pro vider: [facility] - Reason: Unreviewed Transfer Orders)102 ([facility] Unhold - Provider: Anastasiya Coates [...] Patients with CrCl less than 30ml/min 927 ([facility] Hold - Pro vider: [facility] - Reason: Unreviewed Transfer Orders)1027 ([facility] Unhold - Provider: Anastasiya Coates [...] Anastasiya Coates RN)0928 ([facility] Hold - Provider: [facility] - Reason: Unreviewed Transfer Orders)1027 [...] Anastasiya Coates RN)0928 ([facility] Hold - Provider: [facility] - Reason: Unreviewed Transfer Orders)1027 ([facility] Unhold - Provider: Anastasiya Coates RN) ondansetron (ZOFRAN) injection 4 mg(Linked Group 3) 4 mg, IntraVENous, EVERY 6 HOURS PRN, Starting on 4/5/25 at 2346, Until Discontinued, Nausea, Vomiting, Administer if oral route cannot be used. 0001 (Given - Provid er: Aundrea Beltre RN)0554 (Given - Provider: Aundrea Beltre RN)0928 ([facility] Hold - Provider: [facility] - Reason: Unreviewed Transfer Orders)1027 ([facility] Unhold - Provider: Anastasiya Coates RN) ondansetron (ZOFRAN-ODT) disintegrating tablet 4 mg(Linked Group 3) 4 mg, Oral, EVERY 8 HOURS PRN, Starting on 4/5/25 at 2346, Until Discontinued, Nausea, Vomiting 0001 (See Alternativ e - Provider: Aundrea Beltre RN)0554 (See Alternative - Provider: Aundrea Beltre RN)0928 ([facility] Hold - Provider: [facility] - Reason: Unreviewed Transfer Orders)1027 ([facility] Unhold - Provider: Anastasiya Coates RN) oxyCODONE (ROXICODONE) immediate release tablet 2.5 mg(Linked Group 4) 2.5 mg, Oral, EVERY 4 HOURS PRN, Starting on 4/5/25 at 2346, Until Discontinued, Pain Moderate (4-6), allowed for higher pain score per patient request 0000 (See Alternativ e - Provider: Aundrea Beltre RN)0928 ([facility] Hold - Provider: [facility] - Reason: Unreviewed Transfer Orders)1027 ([facility] Unhold - Provider: Anastasiya Coates RN)1053 (See Alternative - Provider: Anastasiya Coates RN) oxyCODONE (ROXICODONE) immediate release tablet 5 mg(Linked Group 4) 5 mg, Oral, EVERY 4 HOURS PRN, Starting on Sat 4//25 at 2346, Until Discontinued, Pain Severe (7-10) 0000 (Given - Provid er: Aundrea Beltre RN)0928 ([facility] Hold - Provider: [facility] - Reason: Unreviewed Transfer Orders)1027 ([facility] Unhold - Provider: Anastasiya Coates RN)1053 (Given - Provider: Anastasiya Coates RN) polyethylene glycol (GLYCOLAX) packet 17 g 17 g, Oral, DAILY PRN, Starting on Sat 4/25 at 2346, Until Discontinued, Constipation, First line therapy for constipation 0928 ([facility] Hold - Pro vider: [facility] - Reason: Unreviewed Transfer Orders)1027 ([facility] Unhold - Provider: Anastasiya Coates [...] dilute if GI adverse effects occur. 927 ([facility] Hold - Pro vider: [facility] - Reason: Unreviewed Transfer Orders)102 ([facility] Unhold - Provider: Anastasiya Coates [...] and each half swallowed separately. 927 ([facility] Hold - Pro vider: [facility] - Reason: Unreviewed Transfer Orders)1026 ([facility] Unhold - Provider: Anastasiya Coates [...] CrCl less than 30 mL/min. 927 ([facility] Hold - Pro vider: [facility] - Reason: Unreviewed Transfer Orders)1027 ([facility] Unhold - Provider: Anastasiya Coates [...] Balwinder Ashton RN)2033 (Given - Provider: Gretchen Toyn) 0900 (Given - Provider: Balwinder Ashton RN)2200 [...] 5 days. 0717 (Given - Provider: Balwinder Ahston RN)1440 ([facility] Hold - Provider: [facility] - Reason: Unreviewed Transfer Orders)1744 [...] Balwinder Ashton RN)1440 ([facility] Hold - Provider: [facility] - Reason: Unreviewed Transfer Orders)1744 ([facility] Unhold - Provider: Balwinder Ashton RN) 1203 (Given - Provider: Maryam Avila) ondansetron (ZOFRAN-ODT) disintegrating tablet 4 mg(Linked Group 1) 4 mg, Oral, EVERY 8 HOURS PRN, Starting on Julia 01/26/25 at 1726, Until Discontinued, Nausea, Vomiting 0806 (See Alternative - Provider: Balwinder Ashton RN)1440 ([facility] Hold - Provider: [facility] - Reason: Unreviewed Transfer Orders)1744 [...] or Central Line = 20 mL/lumen 1440 ([facility] Hold - Provider: [facility] [employer] - Reason: Unreviewed Transfer Orders)1744 ([facility] Unhold - Provider: Balwinder Ashton [...] BE BASED ON THE PRIMARY CLINICAL RECORDS. [employer] provides no warranty or guarantee of the accuracy or completeness of information in this document.
--- NOTE | 2025-07-25 09:05 | FL_ITS ---
[facility] [place] [id number] Patient Name: CORI BARRIGA MRN: [id number] date: 1990 Sex: F Assigned Patient Location: [place] Current Patient Location: [place] Accession/Order Number: [id number] Exam Date: 07/25/2025 08:45 Report Date: 07/25/2025 09:37 At the request of: DOMINGO SNYDER MD Procedure: FL barium swallow DOUBLE CONTRAST ESOPHAGRAM CLINICAL HISTORY: Gastroenteritis COMPARISON: None TECHNIQUE: Double contrast esophagram was performed. Fluoroscopy time 2.2 minutes. 9images were obtained. FINDINGS: The esophagus appears normal in caliber without evidence of stricture, mass or ulcer. No gastroesophageal reflux was seen. No tertiary contractions. FL/[place] barium swallow IMPRESSION: UNREMARKABLE ESOPHAGRAM. Impression dictated by: Jeffry Prasad Jr., D.OTereza 07/25/2025 9:37 AM Dictation Location: [place] [address] Electronically authenticated by: [id number] Y Date: 07/25/2025 09:37
== END 2025-07-25 08:07 | disposition home or self-care (01) ==
LOC: FL 08:06
PROVIDERS: PCP Family Medicine; Visit Provider Family Medicine
DX: K52.9 Noninfective gastroenteritis and colitis, unspecified (principal); R20.2 Paresthesia of skin
CPT/HCPCS: 36415; 74220; 76120; 80053; 83735

== ENCOUNTER 2025-08-04 07:34 | Outpatient (OUT) | payer OTHER, SELFPAY ==
--- OUTSIDE RECORDS SUMMARY | 2024-05-09 04:30 | XMS_ITS ---
Author Organization [facility] Address [address] [place] [address] Care Team Providers Care Resident Engineer Name Role Phone Iván Puckett Primary Care Provider [phone] Dulce Maria Grey Unavailable [phone] REASON FOR VISIT PROPHY Encounters Encounter Location Date Provider Diagnosis [address] [place] [address] 05/09/2024 Dulce Maria Matthews Plan Of Treatment No Information Progress Notes * CORI BARRIGA LDOB: [birth year] (34 yo F)Acc No.[id number]:05/09/2024 Patient: Connor QUIROZ CORI Hyman Provider: Ladonna Baugh :1990 A ge:33 Y S ex:Female Date:05/09/2024 [facility] [facility] Pcp:Iván Puckett Subjective: * Chief Complaints: * P ROPHY * Electronic signature of Karissa Matthews on 08/04/2025 at 07:38 AM EDT Sign off status: Pending * Provider: Ladonna Baugh Date: 0 05/09/2024 Generated for Meenakshi ng/Fawendyg/eTransmitting on: 1 07:38 AM EDT
--- OUTSIDE RECORDS SUMMARY | 2025-08-04 07:37 | XMS_ITS | Patient Health Record ---
Author Organization [facility] in [place] Address [address] [place] [address] Care Team Providers Care Computer Repairer Name Role Phone Kendrick Das Primary Care Provider Adonis Sanchez Unavailable [phone] Allergies No Known Allergies Results Component Value Reference Range Notes LIPASE Reviewed date:12/03/2024 02:14:40 PM Interpretation: Performing Lab: Notes/Report: [facility] , Lipase 29.0 16.0-77.0 U/L Performing Lab: see note ML - [facility] LB PROF 14(COMP METB) Reviewed date:12/03/2024 02:14:40 PM Interpretation: Performing Lab: Notes/Report: [facility] , Sodium 142 136-145 mmol/L Potassium 3.2 [...] 1.1 Performing Lab: see note ML - [facility] LB UA Micro, reflex to culture Reviewed date:12/03/2024 02:14:40 PM Interpretation: Performing Lab: Notes/Report: [facility] , Color Urine DK. ORANGE YELLOW Clarity Urine CLEAR CLEAR Specific Fork Urine <=1.005 1.005-1.025 pH Urine 6.5 5.0-9.0 [...] SEEN NONE SEEN #/LPF Urine Culture Indicated YES-[facility] Performing Lab: see note ML - [facility] LB XR abdomen 1V Reviewed date:12/03/2024 02:14:40 PM Interpretation: Performing Lab: Notes/Report: Source Facility: [place] [address] [place] [address] XRay Report Signed Patient: DIANA BARRIGA MR#: [id number] : 1990 Acct:[id number] Age/Sex: 34 / F ADM Date: 12/02/24 Loc: ER Attending Dr: Ordering Physician: Ninoska Leonard Date of Service: 12/02/24 Procedure(s): XR abdomen 1V Accession Number(s): [id number] cc: Domingo Das M.D.; Ninoska Leonard [place] [address] Patient Name: DIANA BARRIGA MRN: [id number] date: 1990 Sex: F Assigned Patient Location: ER Current Patient Location: Accession/Order Number: [id number] Exam Date: 12/02/2024 18:12 Report Date: 12/02/2024 [...] M.D. Signed By: 12/02/242008 DD/ 06 TD/TT: Handkerchief Folder: LACTATE or LACTIC ACID Reviewed date:12/03/2024 02:14:40 PM Interpretation: Performing Lab: Notes/Report: [facility] , Lactate/Lactic Acid 1.1 0.4-2.0 mmol/L Performing Lab: see note ML - [facility] LB CBC AUTO DIFF Reviewed date:12/03/2024 02:14:40 PM Interpretation: Performing Lab: Notes/Report: [facility] , White Blood Count 7.3 4.0-11.0 10 [...] 10 3/uL Performing Lab: see note - [facility] LB Urine Culture, Routine Reviewed date:10/04/2024 12:21:27 PM Interpretation: Performing Lab: Notes/Report: [facility] , Urine Culture, Routine See Below For Report Urine Culture, Routine Urine Culture, Routine Mixed urogenital greg Urine Culture, Routine Urine Culture, Routine 10,000-25,000 col bryon forming units per mL Urine Culture, Routine Urine Culture, Routine [facility]formed [facility]: [facility] Urine Culture, Routine Urine Culture, Routine [address] [place] [phone] Urine Culture, Routine Urine Culture, Routine Hot Iron Worker: rAie Menjivar PhD, Phone: [phone] Urine Culture, Routine Performing Lab: see note LC - [facility] LB SEE REPORT - Show Girl Id information not found for OBX-specific cattle producers legend URINE MICROSCOPIC ONLY Reviewed date:10/02/2024 08:18:34 PM Interpretation: Performing Lab: Notes/Report: [facility] , WBC Urine 5-10 NONE SEEN #/HPF RBC Urine 0-2 0-2 #/HPF Bacteria Urine SMALL NONE SEEN #/HPF Mucus Urine TRACE NONE SEEN Squamous Epithelial Cell Urine FEW NONE/RARE #/LPF Crystals Seen? None Seen None Seen #/HPF Amorphous Sediment Urine FEW Cast Seen? NONE SEEN NONE SEEN #/LPF Urine Culture Indicated YES Performing Lab: see note - [facility] LB UA (CLEAN or CATCH) WELDER FITTER HELPER or M ICRO IF IND. Reviewed date:10/02/2024 08:18:34 PM Interpretation: Performing Lab: Notes/Report: [facility] , Color Urine LT. YELLOW YELLOW Clarity Urine CLOUDY CLEAR Specific Fork Urine 1.020 1.005-1.025 pH Urine 7.5 5.0-9.0 Protein Urine NEGATIVE NEG/TRACE mg/dL Glucose Urine UA NEGATIVE NEGATIVE mg/dL Bilirubin Urine NEGATIVE NEGATIVE Ketones Urine NEGATIVE NEGATIVE mg/dL Blood Urine NEGATIVE NEGATIVE Nitrite Urine NEGATIVE NEGATIVE Urobilinogen Urine 1.0 0.2-1.0 EU/dL Leukocyte Esterase Urine MODERATE NEGATIVE Urine Microscopic Indicated YES Performing Lab: see note ML - [facility] LB Urine Culture, Routine Reviewed date:10/03/2024 06:15:29 [...] Status Urine Culture, Routine [facility]formed at: - [facility] Urine Culture, Routine Organism: Gram negative christelle : O:ECMS Isolated O:GNR Isolated Organism: 1.1 Antibiotic Interpretation ANASTASIA Status Urine Culture, Routine [address], [place] [phone] Urine Culture, Routine Organism: Gram negative christelle : O:ECMS Isolated O:GNR Isolated Organism: 1.1 Antibiotic Interpretation ANASTASIA Status Urine Culture, Routine Hot Iron Worker: Arie Menjivar PhD, Phone: [phone] Urine Culture, Routine Organism: Gram negative christelle [...] Interpretation ANASTASIA Status Urine Culture, Routine Trimethoprim/Sulf ameth oxazole S F Urine Culture, Routine Organism: Gram negative christelle : O:ECMS Isolated O:GNR Isolated Organism: 1.1 Antibiotic Interpretation ANASTASIA Status Urine Culture, Routine Piperacillin/Tazo bacta m S F Urine Culture, Routine Organism: Gram negative christelle : O:ECMS Isolated O:GNR Isolated Organism: 1.1 Antibiotic Interpretation ANASTASIA Status Performing Lab: see note LC - [facility] LB SEE REPORT - Show Girl Id information not found for OBX-specific cattle producers legend Erythrocyte Sedimentation Ra te Reviewed date:09/08/2024 02:54:07 PM Interpretation: Performing Lab: Notes/Report: [facility] , Erythrocyte Sedimentation Rate 10 <=20 mm/hr Performing Lab: see note ML - [facility] LB FLUORO FOR SURGICAL PROCEDUR ES Reviewed date:03/28/2025 04:31:58 PM Interpretation: Performing Lab: Notes/Report: Radiology exam is complete. No Radiologist dictation. Please follow up with ordering provider. [facility]formed at: [facility] [place] [address] CBC AUTO DIFF Reviewed date:05/06/2025 03:21:39 PM Interpretation: Performing Lab: Notes/Report: [facility] , White Blood Count 6.8 4.0-11.0 10 [...] Performing Lab: see note ML - [facility] LB PROF CHEM 8 (BAS METB) Reviewed date:05/06/2025 03:21:39 PM Interpretation: Performing Lab: Notes/Report: [facility] , Sodium 144 136-145 mmol/L Potassium 3.4 [...] Performing Lab: see note ML - [facility] LB UA (CLEAN or CATCH) WELDER FITTER HELPER or M ICRO IF IND. Reviewed date:05/06/2025 03:21:39 PM Interpretation: Performing Lab: Notes/Report: [facility] , Color Urine LT. YELLOW YELLOW Clarity Urine CLOUDY CLEAR Specific Fork Urine 1.015 1.005-1.025 pH Urine 7.5 5.0-9.0 Protein Urine NEGATIVE NEG/TRACE mg/dL Glucose Urine UA NEGATIVE NEGATIVE mg/dL Bilirubin Urine NEGATIVE NEGATIVE Ketones Urine NEGATIVE NEGATIVE mg/dL Blood Urine TRACE-I NEGATIVE Nitrite Urine NEGATIVE NEGATIVE Urobilinogen Urine 0.2 0.2-1.0 EU/dL Leukocyte Esterase Urine MODERATE NEGATIVE Urine Microscopic Indicated YES Performing Lab: see note ML - [facility] LB URINE MICROSCOPIC ONLY Reviewed date:05/06/2025 03:21:39 PM Interpretation: Performing Lab: Notes/Report: [facility] , WBC Urine 5-10 NONE SEEN #/HPF RBC Urine 2-5 0-2 #/HPF Bacteria Urine LARGE NONE SEEN #/HPF Mucus Urine NONE SEEN NONE SEEN Squamous Epithelial Cell Urine FEW NONE/RARE #/LPF Crystals Seen? None Seen None Seen #/HPF Cast Seen? NONE SEEN NONE SEEN #/LPF Urine Culture Indicated YES-[facility] Performing Lab: see note ML - [facility] LB CT abdomen pelvis wo con Reviewed date:05/06/2025 03:21:39 PM Interpretation: Performing Lab: Notes/Report: Source Facility: [place] [address] CT Scan Report Signed Patient: DIANA BARRIGA MR#: [id number] : 1990 Acct:[id number] Age/Sex: 34 / F ADM Date: 05/05/25 Loc: ER Attending Dr: Ordering Physician: Herman Hay D.O. Date of Service: 05/05/25 Procedure(s): CT abdomen pelvis wo con Accession Number(s): [id number] cc: Domingo Das M.D. [place] [address] Patient Name: DIANA BARRIGA MRN: [id number] date: 1990 Sex: F Assigned Patient Location: ER Current Patient Location: ER Accession/Order Number: [id number] Exam Date: 05/05/2025 21:09 Report Date: 05/05/2025 [...] Conley M.D. 05/05/2025 9:15 PM Dictation Location: [place] [address] Electronically authenticated by: [id number] Y Date: 05/05/2025 21:15 Dictated By: Enrique Conley M.D. Signed By: 05/05/252117 DD/ 14 TD/TT: Handkerchief Folder: MAGNESIUM Reviewed date:07/25/2025 04:35:07 PM Interpretation: Performing Lab: Notes/Report: [facility] , Magnesium 1.8 1.8-2.4 mg/dL Performing Lab: see note ML - [facility] LB PROF 14(COMP METB) Reviewed date:07/25/2025 04:35:07 PM Interpretation: Performing Lab: Notes/Report: [facility] , Sodium 141 136-145 mmol/L Potassium 3.6 3.5-5.1 mmol/L Chloride 105 98-107 mmol/L Carbon Dioxide 27.3 21.0-32.0 mmol/L Anion Gap 12.3 Glucose 94 74-106 mg/dL Blood Urea Nitrogen 9.0 7.0-18.0 mg/dL Creatinine 0.65 0.55-1.02 mg/dL Estimated GFR ( Kyung >60 >=60 mL/min/1.73m 2 Estimated GFR (Non- Shefali >60 >=60 mL/min/1.73m 2 BUN Creatinine Ratio 13.8 Calcium 8.8 8.5-10.1 mg/dL Bilirubin Total 0.5 0.2-1.0 mg/dL Aspartate Amino Transferase 20 15-37 U/L Alanine Aminotransferase 34 14-59 U/L Alkaline Phosphatase 67 46-116 U/L Total Protein 7.5 6.4-8.2 g/dL Albumin Level 4.0 3.4-5.0 g/dL Globulin 3.5 Albumin Globulin Ratio 1.1 Performing Lab: see note ML - [facility] barium swallow Reviewed date:07/25/2025 04:35:07 PM Interpretation: Performing Lab: Notes/Report: Source Facility: [facility]-[address] [place] [address] [place] [address] Fluoroscopy Report Signed Patient: DIANA BARRIGA MR#: [id number] : 1990 Acct:[id number] Age/Sex: 34 / F ADM Date: 07/25/25 Loc: CT Attending Dr: Domingo Das M.D. Ordering Physician: Domingo Das M.D. Date of Service: 07/25/25 Procedure(s): FL barium swallow Accession Number(s): [id number] cc: Domingo Das M.D. [place] [address] Patient Name: DIANA BARRIGA MRN: [id number] date: 1990 Sex: F Assigned Patient Location: CT Current Patient Location: CT Accession/Order Number: [id number] Exam Date: 07/25/2025 08:45 Report Date: 07/25/2025 09:37 At the request of: DOMINGO DAS MD Procedure: FL barium swallow DOUBLE CONTRAST ESOPHAGRAM CLINICAL HISTORY: Gastroenteritis COMPARISON: None TECHNIQUE: Double contrast esophagram was performed. Fluoroscopy time 2.2 minutes. 9images were obtained. FINDINGS: The esophagus appears normal in caliber without evidence of stricture, mass or ulcer. No gastroesophageal reflux was seen. No tertiary contractions. FL/CT barium swallow IMPRESSION: UNREMARKABLE ESOPHAGRAM. Impression dictated by: Jeffry Prasad Jr., D.O. 07/25/2025 9:37 AM Dictation Location: [place] [address] Electronically authenticated by: [id number] Y Date: 07/25/2025 09:37 Dictated By: Jeffry Prasad M.D. Signed By: 07/25/25939 DD/ 6 TD/TT: Handkerchief Folder: PROF Vance(COMP METB) Reviewed date:07/11/2025 05:40:48 PM Interpretation: Performing Lab: Notes/Report: [facility] , Sodium 142 136-145 mmol/L Potassium 3.1 3.5-5.1 mmol/L Chloride 104 98-107 mmol/L Carbon Dioxide 27.2 21.0-32.0 mmol/L Anion Gap 13.9 Glucose 91 74-106 mg/dL Blood Urea Nitrogen 7.0 7.0-18.0 mg/dL Creatinine 0.70 0.55-1.02 mg/dL Estimated GFR ( Kyung >60 >=60 mL/min/1.73m 2 Estimated GFR (Non- Shefali >60 >=60 mL/min/1.73m 2 BUN Creatinine Ratio 10.0 Calcium 9.2 8.5-10.1 mg/dL Bilirubin Total 0.6 0.2-1.0 mg/dL Aspartate Amino Transferase 31 15-37 U/L Alanine Aminotransferase 85 14-59 U/L Alkaline Phosphatase 67 46-116 U/L Total Protein 8.3 6.4-8.2 g/dL Albumin Level 4.5 3.4-5.0 g/dL Globulin 3.8 Albumin Globulin Ratio 1.2 Performing Lab: see note ML - [facility] LB PHOSPHORUS Reviewed date:07/11/2025 05:40:48 PM Interpretation: Performing Lab: Notes/Report: [facility] , Phosphorus 2.9 2.6-4.7 mg/dL Performing Lab: see note - [facility] LB MAGNESIUM Reviewed date:07/11/2025 05:40:48 PM Interpretation: Performing Lab: Notes/Report: [facility] , Magnesium 1.6 1.8-2.4 mg/dL Performing Lab: see note - [facility] LB PROF 14(COMP METB) Reviewed date:05/24/2025 05:16:43 PM Interpretation: Performing Lab: Notes/Report: [facility] , Sodium 142 136-145 mmol/L Potassium 3.4 [...] 1.1 Performing Lab: see note ML - [facility] LB CBC AUTO DIFF Reviewed date:05/24/2025 02:35:47 PM Interpretation: Performing Lab: Notes/Report: [facility] , White Blood Count 7.0 4.0-11.0 10 [...] Performing Lab: see note ML - [facility] LB XR sacrum coccyx min 2V Reviewed date:03/28/2025 04:31:58 PM Interpretation: Performing Lab: Notes/Report: Source Facility: [facility]-[address] [place] [address] [place] [address] XRay Report Signed Patient: DIANA BARRIGA MR#: [id number] : 1990 Acct:[id number] Age/Sex: 34 / F ADM Date: 03/28/25 Loc: RAD Attending Dr: Domingo Das M.D. Ordering Physician: Domingo Das M.D. Date of Service: 03/28/25 Procedure(s): XR sacrum coccyx min 2V Accession Number(s): [id number] cc: Domingo Das M.D. [place] [id number] Patient Name: DIANA BARRIGA MRN: [id number] date: 1990 Sex: F Assigned Patient Location: [facility] Current Patient Location: [facility] Accession/Order Number: [id number] Exam Date: 03/28/2025 08:29 Report Date: 03/28/2025 [...] Celis M.D. 03/28/2025 8:35 AM Dictation Location: [place] [address] Electronically authenticated by: [id number] Y Date: 03/28/2025 08:35 Dictated By: Imani Celis M.D. Signed By: 03/28/25 0837 DD/ 0835 TD/TT: Handkerchief Folder: PROF Vance(COMP METB) Reviewed date:09/08/2024 02:54:07 PM Interpretation: Performing Lab: Notes/Report: [facility] , Sodium 141 136-145 mmol/L Potassium 3.7 [...] 1.1 Performing Lab: see note ML - [facility] LB MAGNESIUM Reviewed date:09/08/2024 02:54:07 PM Interpretation: Performing Lab: Notes/Report: [facility] , Magnesium 1.6 1.8-2.4 mg/dL Performing Lab: see note ML - [facility] LB CRP Reviewed date:09/08/2024 02:54:07 PM Interpretation: Performing Lab: Notes/Report: [facility] , C Reactive Protein <0.50 <=0.50 mg/dL Performing Lab: see note ML - [facility] LB CBC AUTO DIFF Reviewed date:09/08/2024 02:54:07 PM Interpretation: Performing Lab: Notes/Report: [facility] , White Blood Count 6.0 4.0-11.0 10 [...] 3/uL Performing Lab: see note ML - [facility] LB AMMONIA Reviewed date:09/08/2024 02:54:07 PM Interpretation: Performing Lab: Notes/Report: [facility] , Ammonia <10 11-32 umol/L Performing Lab: see note ML - [facility] LB NM KIDNEY W FLOW AND FUNCTIO N W PHARMACOLOGICAL INTERVENTION Reviewed date:01/22/2025 03:38:47 PM Interpretation: Performing Lab: Notes/Report: EXAMINATION: NM KIDNEY W FLOW AND FUNCTION W PHARMACOLOGICAL INTERVENTION Performed at: [address] [address] Urine Culture - [facility] Reviewed date:12/07/2024 07:22:21 PM Interpretation: Performing Lab: Notes/Report: [facility] , Urine Culture - [facility] See Below For Report Urine Culture - [facility] 30,000 colonies/ml mixed Urine Culture - [facility] bacterial skin contaminants Urine Culture - [facility] 30,000 colonies/ml mixed Urine Culture - [facility] 2 Days Urine Culture - [facility] 30,000 colonies/ml mixed Urine Culture - [facility] Urine Culture - [facility] 30,000 colonies/ml mixed Urine Culture - [facility] Testing performed a [facility] Urine Culture - [facility] 30,000 colonies/ml mixed Urine Culture - [facility] [address] [place] [address] Urine Culture - [facility] 30,000 colonies/ml mixed Performing Lab: see note ML - [facility] LB FL VOIDING URETHROCYSTOGRAM S AND I Reviewed date:01/22/2025 03:38:47 PM Interpretation: Performing Lab: Notes/Report: EXAMINATION: Performed at: [place] [address] CBC AUTO DIFF Reviewed date:01/22/2025 03:38:47 PM Interpretation: Performing Lab: Notes/Report: [facility] , White Blood Count 8.2 4.0-11.0 10 [...] Performing Lab: see note ML - [facility] LB LACTATE or LACTIC ACID Reviewed date:01/22/2025 03:38:47 PM Interpretation: Performing Lab: Notes/Report: [facility] , Lactate/Lactic Acid 1.3 0.4-2.0 mmol/L Performing Lab: see note ML - [facility] LB PROF 14(COMP METB) Reviewed date:01/22/2025 03:38:47 PM Interpretation: Performing Lab: Notes/Report: [facility] , Sodium 139 136-145 mmol/L Potassium 3.3 [...] Globulin Ratio 1.0 Performing Lab: see note - [facility] HCG Qualitative* Reviewed date:01/22/2025 03:38:47 PM Interpretation: Performing Lab: Notes/Report: [facility] , HCG Qualitative NEGATIVE NEGATIVE Performing Lab: see note - [facility] LB CT abdomen pelvis wo con Reviewed date:09/28/2024 07:53:59 PM Interpretation: Performing Lab: Notes/Report: Source Facility: [facility]-[address] [place] [address] [place] [address] CT Scan Report Signed Patient: DIANA BARRIGA MR#: [id number] : 1990 Acct:[id number] Age/Sex: 34 / F ADM Date: 09/28/24 Loc: ER Attending Dr: Ordering Physician: Stephanie Ramirez Date of Service: 09/28/24 Procedure(s): CT abdomen pelvis wo con Accession Number(s): [id number] cc: Domingo Das M.D. [place] [id number] Patient Name: DIANA BARRIGA MRN: [facility]:[id number] date: 1990 Sex: F Assigned Patient Location: ER Current Patient Location: ER Accession/Order Number: [id number] Exam Date: 09/28/2024 15:52 Report Date: 09/28/2024 [...] Signed By: 09/28/24 1631 DD/ 1628 TD/TT: Handkerchief Folder: RUFINO Valdes, reflex to culture Reviewed date:01/22/2025 03:38:47 PM Interpretation: Performing Lab: Notes/Report: [facility] , Color Urine LT. YELLOW YELLOW Clarity Urine CLOUDY CLEAR Specific Fork Urine 1.010 1.005-1.025 pH Urine 6.5 5.0-9.0 [...] SEEN NONE SEEN #/LPF Urine Culture Indicated YES-[facility] Performing Lab: see note - [facility] LB Manual Differential Reviewed date:09/28/2024 07:53:59 PM Interpretation: Performing Lab: Notes/Report: [facility] , Segmented Neutrophils % Manual 37.0 43.0-75.0 [...] 10 3/uL Basophils Abs Manual 0.05 0.00-0.10 10 3/uL Performing Lab: see note - [facility] LB URINE MICROSCOPIC ONLY Reviewed date:09/28/2024 07:53:59 PM Interpretation: Performing Lab: Notes/Report: [facility] , WBC Urine 50-75 NONE SEEN #/HPF RBC Urine 2-5 0-2 #/HPF Bacteria Urine LARGE NONE SEEN #/HPF Mucus Urine MODERATE NONE SEEN Squamous Epithelial Cell Urine FEW NONE/RARE #/LPF Crystals Seen? None Seen None Seen #/HPF Cast Seen? NONE SEEN NONE SEEN #/LPF Urine Culture Indicated YES Performing Lab: see note - [facility] LB UA (CLEAN or CATCH) WELDER FITTER HELPER or M ICRO IF IND. Reviewed date:09/28/2024 07:53:59 PM Interpretation: Performing Lab: Notes/Report: [facility] , Color Urine LT. YELLOW YELLOW Clarity Urine SL CLOUDY CLEAR Specific Fork Urine 1.020 1.005-1.025 pH Urine 6.5 5.0-9.0 Protein Urine 30 NEG/TRACE mg/dL Glucose Urine UA NEGATIVE NEGATIVE mg/dL Bilirubin Urine NEGATIVE NEGATIVE Ketones Urine NEGATIVE NEGATIVE mg/dL Blood Urine MODERATE NEGATIVE Nitrite Urine POSITIVE NEGATIVE Urobilinogen Urine 1.0 0.2-1.0 EU/dL Leukocyte Esterase Urine SMALL NEGATIVE Urine Microscopic Indicated YES Performing Lab: see note ML - [facility] LB PROF 14(COMP METB) Reviewed date:09/28/2024 07:53:59 PM Interpretation: Performing Lab: Notes/Report: [facility] , Sodium 143 136-145 mmol/L Potassium 3.6 [...] Performing Lab: see note ML - [facility] LB CBC AUTO DIFF Reviewed date:09/28/2024 07:53:59 PM Interpretation: Performing Lab: Notes/Report: [facility] , White Blood Count 5.7 4.0-11.0 10 [...] fL Performing Lab: see note ML - [facility] LB Urine Culture - [facility] Reviewed date:01/24/2025 03:36:36 PM Interpretation: Performing Lab: Notes/Report: [facility] , Urine Culture - [facility] See Below For Report Urine Culture - [facility] Testing performed at [facility] O:ESCCOL Isolated Urine Culture - [facility] [place] Count Organism: 1.1 Antibiotic Interpretation ANASTASIA Status Urine Culture - [facility] [address] [place] [address] [place] [address] Urine Culture - [facility] Testing performed at [facility] O:ESCCOL Isolated Urine Culture - [facility] [place] Count Organism: 1.1 Antibiotic Interpretation ANASTASIA Status Urine Culture - [facility] See Below For Report Urine Culture - [facility] Testing performed at [facility] O:ESCCOL Isolated Urine Culture - [facility] [place] Count Organism: 1.1 Antibiotic Interpretation ANASTASIA Status Urine Culture - [facility] See Below For Report Urine Culture - [facility] Testing performed at [facility] O:ESCCOL Isolated Urine Culture - [facility] [place] Count Organism: 1.1 Antibiotic Interpretation ANASTASIA Status Urine Culture - [facility] >100,000 Urine Culture - [facility] Testing performed at [facility] O:ESCCOL Isolated Urine Culture - [facility] [place] Count Organism: 1.1 Antibiotic Interpretation ANASTASIA Status Urine Culture - [facility] See Below For Report Urine Culture - [facility] Testing performed at [facility] O:ESCCOL Isolated Urine Culture - [facility] [place] Count Organism: 1.1 Antibiotic Interpretation ANASTASIA Status Urine Culture - [facility] Amikacin S F Urine Culture - [facility] Testing performed at [facility] O:ESCCOL Isolated Urine Culture - [facility] [place] Count Organism: 1.1 Antibiotic Interpretation ANASTASIA Status Urine Culture - [facility] Amoxicillin/Clavula thea e S F Urine Culture - [facility] Testing performed at [facility] O:ESCCOL Isolated Urine Culture - [facility] [place] Count Organism: 1.1 Antibiotic Interpretation ANASTASIA Status Urine Culture - [facility] Ampicillin S F Urine Culture - [facility] Testing performed at [facility] O:ESCCOL Isolated Urine Culture - [facility] [place] Count Organism: 1.1 Antibiotic Interpretation ANASTASIA Status Urine Culture - [facility] Aztreonam S F Urine Culture - [facility] Testing performed at [facility] O:ESCCOL Isolated Urine Culture - [facility] [place] Count Organism: 1.1 Antibiotic Interpretation ANASTASIA Status Urine Culture - [facility] Ceftazidime S F Urine Culture - [facility] Testing performed at [facility] O:ESCCOL Isolated Urine Culture - [facility] [place] Count Organism: 1.1 Antibiotic Interpretation ANASTASIA Status Urine Culture - [facility] Ceftazidime/Avibact am S F Urine Culture - [facility] Testing performed at [facility] O:ESCCOL Isolated Urine Culture - [facility] [place] Count Organism: 1.1 Antibiotic Interpretation ANASTASIA Status Urine Culture - [facility] Ceftolozane/Tazobac lewis S F Urine Culture - [facility] Testing performed at [facility] O:ESCCOL Isolated Urine Culture - [facility] [place] Count Organism: 1.1 Antibiotic Interpretation ANASTASIA Status Urine Culture - [facility] Ciprofloxacin S F Urine Culture - [facility] Testing performed at [facility] O:ESCCOL Isolated Urine Culture - [facility] [place] Count Organism: 1.1 Antibiotic Interpretation ANASTASIA Status Urine [facility] - [facility] Ertapenem S F [facility] Testing performed at [facility] O:ESCCOL Isolated Urine Culture - [facility] [place] Count Organism: 1.1 Antibiotic Interpretation ANASTASIA Status Urine Culture - [facility] Gentamicin S F Urine [facility] - [facility] Testing performed at [facility] O:ESCCOL Isolated Urine Culture - [facility] [place] Count Organism: 1.1 Antibiotic Interpretation ANASTASIA Status Urine Culture - [facility] Levofloxacin S F Urine Culture - [facility] Testing performed at [facility] O:ESCCOL Isolated Urine Culture - [facility] [place] Count Organism: 1.1 Antibiotic Interpretation ANASTASIA Status Urine Culture - [facility] Meropenem S F Urine Culture - [facility] Testing performed at [facility] O:ESCCOL Isolated Urine Culture - [facility] [place] Count Organism: 1.1 Antibiotic Interpretation ANASTASIA Status Urine Culture - [facility] Meropenem/Vaborbact am S F Urine Culture - [facility] Testing performed at [facility] O:ESCCOL Isolated Urine Culture - [facility] [place] Count Organism: 1.1 Antibiotic Interpretation ANASTASIA Status Urine Culture - [facility] Nitrofurantoin S F Urine Culture - [facility] Testing performed at [facility] O:ESCCOL Isolated Urine Culture - [facility] [place] Count Organism: 1.1 Antibiotic Interpretation ANASTASIA Status Urine Culture - [facility] Tetracycline S F Urine Culture - [facility] Testing performed at [facility] O:ESCCOL Isolated Urine Culture - [facility] [place] Count Organism: 1.1 Antibiotic Interpretation ANASTASIA Status Urine Culture [facility] Tigecycline S F Urine Culture - [facility] Testing performed at [facility] O:ESCCOL Isolated Urine Culture - [facility] [place] Count Organism: 1.1 Antibiotic Interpretation ANASTASIA Status Urine Culture [facility] Tobramycin S F Urine Culture - [facility] Testing performed at [facility] O:ESCCOL Isolated Urine Culture - [facility] [place] Count Organism: 1.1 Antibiotic Interpretation ANASTASIA Status Urine Culture [facility] Ampicillin/Sulbacta m S F Urine Culture - [facility] Testing performed at [facility] O:ESCCOL Isolated Urine Culture - [facility] [place] Count Organism: 1.1 Antibiotic Interpretation ANASTASIA Status Urine Culture [facility] Cefazolin S F Urine Culture - [facility] Testing performed at [facility] O:ESCCOL Isolated Urine Culture - [facility] [place] Count Organism: 1.1 Antibiotic Interpretation ANASTASIA Status Urine Culture [facility] Cefepime S F Urine Culture - [facility] Testing performed at [facility] O:ESCCOL Isolated Urine Culture - [facility] [place] Count Organism: 1.1 Antibiotic Interpretation ANASTASIA Status Urine Culture - [facility] Ceftriaxone S F Urine Culture - [facility] Testing performed at [facility] O:ESCCOL Isolated Urine Culture - [facility] [place] Count Organism: 1.1 Antibiotic Interpretation ANASTASIA Status Urine Culture - [facility] Cefuroxime S F Urine Culture - [facility] Testing performed at [facility] O:ESCCOL Isolated Urine Culture - [facility] [place] Count Organism: 1.1 Antibiotic Interpretation ANASTASIA Status Urine Culture [facility] Piperacillin/Tazoba cta m S F Urine Culture - [facility] Testing performed at [facility] O:ESCCOL Isolated Urine Culture - [facility] [place] Count Organism: 1.1 Antibiotic Interpretation ANASTASIA Status Urine Culture [facility] Trimethoprim/Sulfa S F Urine Culture - [facility] Testing performed at [facility] O:ESCCOL Isolated Urine Culture - [facility] [place] Count Organism: 1.1 Antibiotic Interpretation ANASTASIA Status Performing Lab: see note ML - [facility] LB SEE REPORT - Show Girl Id information not found for OBX-specific cattle producers legend XR lumbar spine min 4V Reviewed date:03/28/2025 04:31:58 PM Interpretation: Performing Lab: Notes/Report: Source Facility: [facility]-[address] [place] [address] [place] [address] XRay Report Signed Patient: DIANA BARRIGA MR#: [id number] : 1990 Acct:[id number] Age/Sex: 34 / F ADM Date: 03/28/25 Loc: RAD Attending Dr: Domingo Das M.D. Ordering Physician: Domingo Das M.D. Date of Service: 03/28/25 Procedure(s): XR lumbar spine min 4V Accession Number(s): [id number] cc: Domingo Das M.D. [place] [address] Patient Name: DIANA BARRIGA MRN: [id number] date: 1990 Sex: F Assigned Patient Location: [facility] Current Patient Location: [facility] Accession/Order Number: [id number] Exam Date: 03/28/2025 08:29 Report Date: 03/28/2025 [...] Celis M.D. 03/28/2025 8:35 AM Dictation Location: [place] [address] Electronically authenticated by: [id number] Y Date: 03/28/2025 08:35 Dictated By: Imani Celis M.D. Signed By: 03/28/25837 DD/ 4 TD/TT: Handkerchief Folder: Arash COONEYima HPV,Age Gdln Reviewed date:04/12/2025 09:12:34 PM Interpretation: Performing Lab: Notes/Report: SPATULA-ALONE VAGINA [facility] , Age Gdln ACOG Testing Note . TESTS RESULT FLAG UNITS REF RANGE LAB Clinician Provided Cytology Information Source.............Vag socorro No. of containers..01 ThinPrep Vial Loc Carrollo TONY Radha... 3065 01 FLAG LEGEND: L-Low Normal,H-High Normal,LL-Alert Low,HH-Alert High <-Panic Low,>-Panic High,A-Abnormal,AA-Cri tical Abnormal Performed at: 01 =G [facility] [address] [place] [address] Shereen Caal MD, IGP, Aptima HPV, rfx 16/18,45 Note . TESTS RESULT FLAG UNITS REF RANGE LAB DIAGNOSIS: [A] 02 EPITHELIAL CELL ABNORMALITY. ATYPICAL SQUAMOUS CELLS OF UNDETERMINED SIGNIFICANCE (ASC-US). Recommendation: [A] 02 Suggest follow up as clinically appropriate. Specimen adequacy: 02 Satisfactory for evaluation. Performed by: 02 Tamiko Barrow, Roofing Apprentice ([facility]) Electronically si... Capri Boston MD, [...] L-Low Normal,H-High Normal,LL-Alert Low,HH-Alert High <-Panic Low,>-Panic High,A-Abnormal,AA-Cri tical Abnormal Performed at: [address] [address] Shereen Caal MD, HPV Aptima Negative Negative This nucleic acid amplification test detects fourteen high- risk HPV types (16,18,31,33,35,39,45, 51,52,56,58,59,66,68) without differentiation. Performed at: =G - [facility] [address] [id number] Hot Iron Worker: Shereen Caal MD, Phone: [phone] Performed at: WB - [facility] [address] [id number] Hot Iron Worker: Shereen Caal MD, Phone: [phone] Performing Lab: see note - [facility] LB Urine Culture - [facility] Reviewed date:05/08/2025 02:50:28 PM Interpretation: Performing Lab: Notes/Report: [facility] , Urine Culture - [facility] See Below For Report Urine Culture - [facility] Testing performed at [facility] O:CITFRC Isolated Urine Culture - [facility] Organism Comments Organism: 1.1 Antibiotic Interpretation ANASTASIA Status Urine Culture - [facility] [address] [place] [address] Urine Culture - [facility] Testing performed at [facility] O:CITFRC Isolated Urine Culture - [facility] Organism Comments Organism: 1.1 Antibiotic Interpretation ANASTASIA Status Urine Culture - [facility] See Below For Report Urine Culture - [facility] Testing performed at [facility] O:CITFRC Isolated Urine Culture - [facility] Organism Comments Organism: 1.1 Antibiotic Interpretation ANASTASIA Status Urine Culture - [facility] See Below For Report Urine Culture - [facility] Testing performed at [facility] O:CITFRC Isolated Urine Culture - [facility] Organism Comments Organism: 1.1 Antibiotic Interpretation ANASTASIA Status Urine Culture - [facility] 75,000 CFU/ML Urine Culture - [facility] Testing performed at [facility] O:CITFRC Isolated Urine Culture - [facility] Organism Comments Organism: 1.1 Antibiotic Interpretation ANASTASIA Status Urine Culture - [facility] See Below For Report Urine Culture - [facility] Testing performed at [facility] O:CITFRC Isolated Urine Culture - [facility] Organism Comments Organism: 1.1 Antibiotic Interpretation ANASTASIA Status Urine Culture - [facility] Amikacin S F Urine Culture - [facility] Testing performed at [facility] O:CITFRC Isolated Urine Culture - [facility] Organism Comments Organism: 1.1 Antibiotic Interpretation ANASTASIA Status Urine Culture - [facility] Aztreonam I F Urine Culture - [facility] Testing performed at [facility] O:CITFRC Isolated Urine Culture - [facility] Organism Comments Organism: 1.1 Antibiotic Interpretation ANASTASIA Status Urine Culture - [facility] Ceftazidime I F Urine Culture - [facility] Testing performed at [facility] O:CITFRC Isolated Urine Culture - [facility] Organism Comments Organism: 1.1 Antibiotic Interpretation ANASTASIA Status Urine Culture - [facility] Ceftazidime/Avibact am S F Urine Culture - [facility] Testing performed at [facility] O:CITFRC Isolated Urine Culture - [facility] Organism Comments Organism: 1.1 Antibiotic Interpretation ANASTASIA Status Urine Culture - [facility] Ciprofloxacin S F Urine Culture - [facility] Testing performed at [facility] O:CITFRC Isolated Urine Culture - [facility] Organism Comments Organism: 1.1 Antibiotic Interpretation ANASTASIA Status Urine Culture - [facility] Ertapenem S F Urine Culture - [facility] Testing performed at [facility] O:CITFRC Isolated Urine Culture - [facility] Organism Comments Organism: 1.1 Antibiotic Interpretation ANASTASIA Status Urine Culture - [facility] Gentamicin S F Urine Culture - [facility] Testing performed at [facility] O:CITFRC Isolated Urine Culture - [facility] Organism Comments Organism: 1.1 Antibiotic Interpretation ANASTASIA Status Urine Culture - [facility] Levofloxacin S F Urine Culture - [facility] Testing performed at [facility] O:CITFRC Isolated Urine Culture - [facility] Organism Comments Organism: 1.1 Antibiotic Interpretation ANASTASIA Status Urine Culture - [facility] Meropenem S F Urine Culture - [facility] Testing performed at [facility] O:CITFRC Isolated Urine Culture - [facility] Organism Comments Organism: 1.1 Antibiotic Interpretation ANASTASIA Status Urine Culture - [facility] Nitrofurantoin S F Urine Culture - [facility] Testing performed at [facility] O:CITFRC Isolated Urine Culture - [facility] Organism Comments Organism: 1.1 Antibiotic Interpretation ANASTASIA Status Urine Culture - [facility] Tetracycline S F Urine Culture - [facility] Testing performed at [facility] O:CITFRC Isolated Urine Culture - [facility] Organism Comments Organism: 1.1 Antibiotic Interpretation ANASTASIA Status Urine Culture - [facility] Tigecycline S F Urine Culture - [facility] Testing performed at [facility] O:CITFRC Isolated Urine Culture - [facility] Organism Comments Organism: 1.1 Antibiotic Interpretation ANASTASIA Status Urine Culture - [facility] Tobramycin S F Urine Culture - [facility] Testing performed at [facility] O:CITFRC Isolated Urine Culture - [facility] Organism Comments Organism: 1.1 Antibiotic Interpretation ANASTASIA Status Urine Culture - [facility] Cefepime S F Urine Culture - [facility] Testing performed at [facility] O:CITFRC Isolated Urine Culture - [facility] Organism Comments Organism: 1.1 Antibiotic Interpretation ANASTASIA Status Urine Culture - [facility] Ceftriaxone I F Urine Culture - [facility] Testing performed at [facility] O:CITFRC Isolated Urine Culture - [facility] Organism Comments Organism: 1.1 Antibiotic Interpretation ANASTASIA Status Urine Culture - [facility] Piperacillin/Tazoba cta m I F Urine Culture - [facility] Testing performed at [facility] O:CITFRC Isolated Urine Culture - [facility] Organism Comments Organism: 1.1 Antibiotic Interpretation ANASTASIA Status Urine Culture - [facility] Trimethoprim/Sulfa R F Urine Culture - [facility] Testing performed at [facility] O:CITFRC Isolated Urine Culture - [facility] Organism Comments Organism: 1.1 Antibiotic Interpretation ANASTASIA Status Performing Lab: see note [facility] LB SEE REPORT - Show Girl Id information not found for OBX-specific cattle producers legend AJIMIE by IFA Reviewed date:05/28/2025 07:56:46 PM Interpretation: Performing Lab: Notes/Report: [facility] , Antinuclear Antibodies, IFA Negative . Negative <1:80 Borderline 1:80 Positive >1:80 ICAP nomenclature: AC-0 For more information about Hep-2 cell patterns use ANApatterns.org, the official website for the International Consensus on Antinuclear Antibody (JAIMIE) Patterns (ICAP). Performed at: [address] [id number] Hot Iron Worker: Travis Menjivar PhD, Phone: [phone] Performing Lab: see note - [facility] LB CRP Reviewed date:05/24/2025 05:16:43 PM Interpretation: Performing Lab: Notes/Report: [facility] , C Reactive Protein <0.50 <=0.50 mg/dL Performing Lab: see note - [facility] LB RHEUMATOID FACTOR Reviewed date:05/28/2025 07:56:46 PM Interpretation: Performing Lab: Notes/Report: [facility] , Rheumatoid Factor (RF) <10.0 <14.0 IU/mL Performing Lab: see note - [facility] LB URIC ACID SERUM Reviewed date:05/24/2025 05:16:43 PM Interpretation: Performing Lab: Notes/Report: [facility] , Uric Acid 4.8 2.6-6.0 mg/dL Performing Lab: see note - [facility] LB Erythrocyte Sedimentation Ra te Reviewed date:05/24/2025 05:16:43 PM Interpretation: Performing Lab: Notes/Report: [facility] , Erythrocyte Sedimentation Rate 19 <=20 mm/hr Performing Lab: see note - [facility] LB Antistreptolysin O Ab Reviewed date:05/28/2025 07:56:46 PM Interpretation: Performing Lab: Notes/Report: [facility] , Antistreptolysin O Ab 473.7 0.0-200.0 IU/mL Performed at: - [facility] [id number] Hot Iron Worker: Travis Menjivar PhD, Phone: [phone] Performing Lab: see note - [facility] LB MR lumbar spine wo con Reviewed date:05/24/2025 05:16:43 PM Interpretation: Performing Lab: Notes/Report: Source Facility: [place] [address] Magnetic Resonance Report Signed Patient: DIANA BARRIGA MR#: [id number] : 1990 Acct:[id number] Age/Sex: 34 / F ADM Date: 05/24/25 Loc: MRI Attending Dr: Domingo Das M.D. Ordering Physician: Domingo Das M.D. Date of Service: 05/24/25 Procedure(s): MR lumbar spine wo con Accession Number(s): [id number] cc: Domingo Das M.D. [place] [address] Patient Name: [place]IANA BARRIGA MRN: [id number] date: 1990 Sex: F Assigned Patient Location: MRI Current Patient Location: MRI Accession/Order Number: [id number] Exam Date: 05/24/2025 15:59 Report Date: 05/24/2025 [...] fissure. There is moderate severe facet arthropathy. [id number] right neural foraminal narrowing and mild left [...] Mcintyre M.D. 05/24/2025 4:09 PM Dictation Location: [place] [address] Electronically authenticated by: [id number] Y Date: 05/24/2025 16:09 Dictated By: Jaime Mcintyre M.D. Signed By: 05/24/25 1611 DD/ 1609 TD/TT: Handkerchief Folder: US abdomen complete Reviewed date:06/24/2025 04:22:59 PM Interpretation: Performing Lab: Notes/Report: Source Facility: [place] [address] [place] [address] Ultrasound Report Signed Patient: DIANA BARRIGA MR#: [id number] : 1990 Acct:[id number] Age/Sex: 34 / F ADM Date: 06/23/25 Loc: US Attending Dr: Domingo Das M.D. Ordering Physician: Domingo Das M.D. Date of Service: 06/23/25 Procedure(s): US abdomen complete Accession Number(s): [id number] cc: Domingo Das M.D. [place] [id number] Patient Name: [place] BARRIGA MRN: [id number] date: 1990 Sex: F Assigned Patient Location: US Current Patient Location: US Accession/Order Number: [id number] Exam Date: 06/23/2025 07:40 Report Date: 06/23/2025 09:39 At the request of: DOMINGO DAS MD Procedure: US abdomen complete COMPLETE ABDOMINAL ULTRASOUND CLINICAL HISTORY: Mid abdominal pain for months nausea and vomiting. Prior cholecystectomy. R10.9 COMPARISON: CT 05/05/2025 The gallbladder is surgically absent. No intrahepatic biliary dilatation is evident. The common duct is slightly prominent measuring 6-7 mm. No filling defects are visualized in the segment that is imaged. The liver is normal in echogenicity. No intrahepatic masses are seen. There is appropriate hepatopetal flow within the main portal vein. The pancreas, as visualized shows no significant sonographic abnormality. The right kidney measures approximately 10.9 cm and the left 10.1 cm in craniocaudal dimension. There is some cortical thinning on the right. There is an echogenic focus with twinkle artifact at the inferior pole on the right suggesting a stone. It measures 5 - 6 mm in size. There is also a potential second stone measuring 2 - 3 mm. Left kidney is slightly lobulated and there are are additional stones measuring up to 7 - 8 mm. These stones were also visualized on the comparison CT. No hydronephrosis is identified. The spleen is normal in size and echogenicity with craniocaudal dimension of 9.8 cm. There is no aortic aneurysm. The IVC is patent. No ascites is seen. US/US abdomen complete IMPRESSION: BILATERAL NEPHROLITHIASIS, WITHOUT OBSTRUCTION. SLIGHTLY PROMINENT COMMON DUCT THAT IS LIKELY RELATED TO PREVIOUS CHOLECYSTECTOMY. OTHERWISE UNREMARKABLE ABDOMINAL ULTRASOUND. Impression dictated by: Imani Celis M.D. 06/23/2025 9:39 AM Dictation Location: [place] [address] Electronically authenticated by: [id number] Y Date: 06/23/2025 09:39 Dictated By: Imani Celis M.D. Signed By: 06/23/2541 DD/ TD/TT: Handkerchief Folder: AMYLASE Reviewed date:07/09/2025 11:33:05 AM Interpretation: Performing Lab: Notes/Report: [facility] , Amylase 56 25-115 U/L Performing Lab: see note ML - [facility] LB CBC AUTO DIFF Reviewed date:07/09/2025 11:33:05 AM Interpretation: Performing Lab: Notes/Report: [facility] , White Blood Count 5.9 4.0-11.0 10 3/uL Red Blood Count 4.27 4.20-5.40 10 6/uL Hemoglobin 12.5 12.0-16.0 g/dL Hematocrit 36.0 36.0-48.0 % Mean Corpuscular Volume 84.3 81.0-99.0 fL Mean Corpuscular Hemoglobin 29.3 26.7-34.0 pg Mean Corpuscular HGB Conc 34.7 29.9-35.2 g/dL Red Cell Distribution Width 12.1 11.0-15.0 % Platelet Count 295 150-450 10 3/uL Mean Platelet Volume 9.4 9.5-13.5 fL Neutrophils Percent Auto 43.7 43.0-75.0 % Lymphocytes Percent Auto 46.6 20.5-60.0 % Monocytes Percent Auto 8.6 1.7-12.0 % Eosinophils Percent Auto 0.3 0.9-7.0 % Basophils Percent Auto 0.8 0.2-2.0 % Immature Granulocytes Pct Auto 0.0 0.0-0.5 % Neutrophils Absolute Auto 2.6 1.4-6.5 10 3/uL Lymphocytes Absolute Auto 2.8 1.2-3.8 10 3/uL Monocytes Absolute Auto 0.5 0.3-0.8 10 3/uL Eosinophils Absolute Auto 0.0 0.0-0.7 10 3/uL Basophils Absolute Auto 0.1 0.0-0.1 10 3/uL Immature Granulocytes Abs Auto 0.00 0.00-0.03 10 3/uL Performing Lab: see note ML - [facility] LB LIPASE Reviewed date:07/09/2025 11:33:05 AM Interpretation: Performing Lab: Notes/Report: [facility] , Lipase 26.0 16.0-77.0 U/L Performing Lab: see note ML - [facility] LB LIVER PROFILE Reviewed date:07/09/2025 11:33:05 AM Interpretation: Performing Lab: Notes/Report: [facility] , Bilirubin Total 0.5 0.2-1.0 mg/dL Bilirubin Direct 0.1 0.0-0.2 mg/dL Aspartate Amino Transferase 32 15-37 U/L Alanine Aminotransferase 102 14-59 U/L Alkaline Phosphatase 66 46-116 U/L Total Protein 7.1 6.4-8.2 g/dL Albumin Level 3.7 3.4-5.0 g/dL Globulin 3.4 Albumin Globulin Ratio 1.1 Performing Lab: see note ML - [facility] LB PROF CHEM 8 (BAS METB) Reviewed date:07/09/2025 11:33:05 AM Interpretation: Performing Lab: Notes/Report: [facility] , Sodium 141 136-145 mmol/L Potassium 2.9 3.5-5.1 mmol/L RESULTS [place] D TO DR. MESHA SAM Chloride 107 98-107 mmol/L Carbon Dioxide 28.2 21.0-32.0 mmol/L Anion Gap 8.7 Glucose 116 74-106 mg/dL Blood Urea Nitrogen 5.0 7.0-18.0 mg/dL Creatinine 0.60 0.55-1.02 mg/dL Estimated GFR ( Kyung >60 >=60 mL/min/1.73m 2 Estimated GFR (Non- Shefali >60 >=60 mL/min/1.73m 2 BUN Creatinine Ratio 8.3 Calcium 8.9 8.5-10.1 mg/dL Performing Lab: see note ML - [facility] LB UA RANDOM W or MICROSCOPIC Reviewed date:07/09/2025 11:33:05 AM Interpretation: Performing Lab: Notes/Report: [facility] , Color Urine LT. YELLOW YELLOW Clarity Urine SL CLOUDY CLEAR Specific Fork Urine 1.015 1.005-1.025 pH Urine 8.0 5.0-9.0 Protein Urine NEGATIVE NEG/TRACE mg/dL Glucose Urine UA NEGATIVE NEGATIVE mg/dL Bilirubin Urine NEGATIVE NEGATIVE Ketones Urine NEGATIVE NEGATIVE mg/dL Blood Urine NEGATIVE NEGATIVE Nitrite Urine NEGATIVE NEGATIVE Urobilinogen Urine 0.2 0.2-1.0 EU/dL Leukocyte Esterase Urine TRACE NEGATIVE WBC Urine 2-5 NONE SEEN #/HPF RBC Urine 0-2 0-2 #/HPF Bacteria Urine TRACE NONE SEEN #/HPF Mucus Urine SMALL NONE SEEN Squamous Epithelial Cell Urine FEW NONE/RARE #/LPF Transitional Epi Cells Urine RARE NONE SEEN #/LPF Crystals Seen? Seen None Seen #/HPF Amorphous Sediment Urine MODERATE Cast Seen? NONE SEEN NONE SEEN #/LPF Urine Culture Indicated NO Performing Lab: see note ML - [facility] LB ECG 12 lead Reviewed date:07/09/2025 06:32:52 PM Interpretation: Performing Lab: Notes/Report: Source Facility: [place] [address] Electrocardiograph Report Signed Patient: DIANA BARRIGA MR#: [id number] : 1990 Acct:[id number] Age/Sex: 34 / F ADM Date: 07/08/25 Loc: ER Attending Dr: Ordering Physician: Mesha Sam M.D. Date of Service: 07/08/25 Procedure(s): ECG 12 lead Accession Number(s): [id number] cc: [facility] Test Date: 2025-07-08 Pat Name: DIANA BARRIGA Department: Room: - Gender: Female Specification Consultant: : 1990 Requested By: DOMINGO DAS Order Number: [id number] Reading MD: BENEDICTO TORRES M.D. Measurements Intervals [place] Rate: 87 P: 51 CT: 154 QRS: 75 QRSD: 86 T: 58 QT: 356 QTc: 400 Interpretive Statements 1100 Sinus rhythm 4068 Nonspecific Twave abnormality 9130 borderline ECG Compared to ECG 04/08/2024 14:53:16 No significant changes Electronically Signed On 07-09-2025 13:53:05 EDT by BENEDICTO TORRES M.D. Dictated By: BENEDICTO TORRES Signed By: 07/09/25 5858 DD/ 1629 TD/TT: Handkerchief Folder: CT abdomen pelvis w con Reviewed date:07/09/2025 11:33:05 AM Interpretation: Performing Lab: Notes/Report: Source Facility: [place] [address] CT Scan Report Signed Patient: DIANA BARRIGA MR#: [id number] : 1990 Acct:[id number] Age/Sex: 34 / F ADM Date: 07/08/25 Loc: ER Attending Dr: Ordering Physician: Mesha Sam M.D. Date of Service: 07/08/25 Procedure(s): CT abdomen pelvis w con Accession Number(s): [id number] cc: Domingo Das M.D. [place] [address] Patient Name: DIANA BARRIGA MRN: [id number] date: 1990 Sex: F Assigned Patient Location: ER Current Patient Location: ER Accession/Order Number: [id number] Exam Date: 07/08/2025 18:10 Report Date: 07/08/2025 18:38 At the request of: MESHA SAM MD Procedure: CT abdomen pelvis w con CT ABDOMEN AND PELVIS WITH INTRAVENOUS CONTRAST: CLINICAL HISTORY: Mid abdominal pain COMPARISON: 05/05/2025 TECHNIQUE: Spiral images were obtained through the abdomen and pelvis following the administration of intravenous contrast. This CT exam was performed using one or more following dose reduction techniques: Automated exposure control, adjustment of the mA and/or kV according to patient size, or use of iterative reconstruction technique. FINDINGS: Lung Bases: [Minimal hypoventilatory changes.] Organs:Cholecystectomy. Otherwise the liver, spleen, adrenals pancreas unremarkable. Areas of cortical thinning and scarring left kidney no hydronephrosis. Bilateral nephrolithiasis..[ GI: Mild retained stool. No bowel obstruction. Colonic diverticulosis. Appendix unremarkable.[ Pelvis:[4.1 x 3.8 cm right adnexal cyst. Hysterectomy. Bladder is unremarkable.] Peritoneum/Retroperitoneum:No free air or free fluid. No pathologic adenopathy. Aorta normal caliber.[ Abd wall/Bones:Facet arthropathy lower lumbar spine. No suspicious osseous lesion. Tiny fat-containing mammogram.[ CT/CT abdomen pelvis w con IMPRESSION: Negative acute inflammatory process or bowel obstruction. Bilateral nonobstructive nephrolithiasis. No hydronephrosis. Right adnexal cyst 4.1 cm size likely physiologic. Impression dictated by: Jaime Mcintyre M.D. 07/08/2025 6:38 PM Dictation Location: [place] [address] Electronically authenticated by: [id number] Date: 07/08/2025 18:38 Dictated By: Jaime Mcintyre M.D. Signed By: 07/08/25 1841 DD/ 1838 TD/TT: Handkerchief Folder: MR cervical spine wo con Reviewed date:07/11/2025 05:40:48 PM Interpretation: Performing Lab: Notes/Report: Source Facility: [place] [address] Magnetic Resonance Report Signed Patient: DIANA BARRIGA MR#: [id number] : 1990 Acct:[id number] Age/Sex: 34 / F ADM Date: 07/11/25 Loc: MRI Attending Dr: Domingo Das M.D. Ordering Physician: Domingo Das M.D. Date of Service: 07/11/25 Procedure(s): MR cervical spine wo con Accession Number(s): [id number] cc: Domingo Das M.D. [place] [address] Patient Name: DIANA BARRIGA MRN: [id number] date: 1990 Sex: F Assigned Patient Location: MRI Current Patient Location: [facility] Accession/Order Number: [id number] Exam Date: 07/11/2025 10:00 Report Date: 07/11/2025 16:57 At the request of: DOMINGO DAS MD Procedure: MR cervical spine wo con EXAMINATION: MRI OF THE CERVICAL SPINE WITHOUT CONTRAST CLINICAL DATA: Cervical Radiculopathy TECHNIQUE: Multiecho imaging was performed in the sagittal and axial plane without contrast FINDINGS: The craniocervical junction is maintained. There is mild reversal normal cervical lordosis may relate to muscle spasm or patient positioning. Minimal intervertebral space narrowing C4-C6. Otherwise, the vertebral body heights, Alignment and bone marrow signal is unremarkable. Cervical cord demonstrates normal signal and morphology. Prevertebral and paraspinal soft tissues are unremarkable. C2-C3: Unremarkable. C3-C4: No significant disease central canal or neural foraminal narrowing identified. There is mild facet arthropathy, left greater than right C4-C5: Minor uncovertebral and facet arthropathy. No central disease central canal or neural from narrowing identified. C5-6: Minimal broad-based disc bulge and vertebral spurring. Mild central canal narrowing. Mild right minimal left foraminal narrowing. C6-C7: Minimal annular bulge. No significant disease central canal or neural foraminal narrowing identified. C7-T1: Mild facet arthropathy. Otherwise no significant disease is canal or neural from narrowing identified. MR/MR cervical spine wo con IMPRESSION: Minimal degenerative changes notably C5-6. No high-grade canal or neural foraminal narrowing identified. Impression dictated by: Jaime Mcintyre M.D. 07/11/2025 4:57 PM Dictation Location: [place] [address] Electronically authenticated by: [id number] Y Date: 07/11/2025 16:57 Dictated By: Jaime Mcintyre M.D. Signed By: 07/11/251699 DD/ 165 TD/TT: Handkerchief Folder: UA DIP NONAUTO WO MICRO (810 02) - IN OFFICE Reviewed date:03/16/2025 03:01:21 PM Interpretation: Performing Lab: Notes/Report: COLOR yellow CLARITY cloudy GLUCOSE neg BLOOD 1+ PROTEIN 1+ NITRITE positive LEUKOCYTE ESTERASE 3+ UA DIP NONAUTO WO MICRO (810 02) - IN OFFICE Reviewed date:12/03/2024 02:14:40 PM Interpretation: Performing Lab: Notes/Report: COLOR straw CLARITY clear GLUCOSE neg BILIRUBIN neg KETONE neg SPECIFIC GRAVITY 1.015 BLOOD 50 PH 7 PROTEIN trace UROBILINOGEN neg NITRITE neg LEUKOCYTE ESTERASE trace Reason For Referral Diagnosis 1 Pyelonephritis (N12) Referral Organization [facility] Referring Provider First Name Kendrick Referring Provider Last Name Thiago Referring Provider [facility]ity [facility] Referred Organization [facility] [place] Referred Provider [facility] Referred Address [address],[place], [place],[address],[place] Referred Provider Specialty Urology Referral Priority Routine Diagnosis 1 Low back pain at [facility] sites (M54.50) Referral Organization [facility] Referring Provider First Name Kendrick Referring Provider Last Name Arnav Referring Provider Speciality [facility] icine Referred Provider [facility] Referred Provider Specialty Physical The rapist Referral Priority Routine Diagnosis 1 Arthralgia (M25.50) Referral Organization [facility] Referring Provider First Name Kendrick Referring Provider Last Name [facility] Referring Provider [facility] Referred Provider Keith Craig Referred Provider Specialty Rheumatology Referral Priority Routine Reason any neurologist is f ine Diagnosis 1 Paresthesia (R20.2) Referral Organization [facility] Referring Provider First Name Kendrick Referring Provider Last Name [facility] Referred Provider Dinora Wallace Referred Provider Specialty Neurology Referral Priority Routine Diagnosis 1 Cervical radiculopat hy (M54.12) Referral Organization [facility] Referring Provider First Name Kendrick Referring Provider Last Name [facility] Referred Provider [facility] Referred Provider Specialty Physical The rapist Referral Priority Routine Medications Medication SIG (Take, Route, Frequency, Duration) Notes Start Date End Date Status Ketoprofen 10 % as directed Externally 06/16/2025 Active Doxycycline Monohydrate 100 MG 1 tablet Orally bid; Duration: 10 days 06/07/2025 Not-Taking tiZANidine HCl 4 MG 2 tabs Orally qhs; Duration: 30 days 03/15/2025 Active Potassium Chloride ER 20 MEQ 1 tablet with food Orally twice a day; Duration: 30 days CANCEL THE 10MEQ 07/12/2025 Active Promethazine HCl 25 MG 1 tablet as needed Orally q6h; Duration: 5 days PRN 01/23/2025 Active Magnesium Oxide 400 MG 1 tablet with food Orally twice a day; Duration: 30 days 07/12/2025 Active Mupirocin 2 % 1 application Externally Twice a day; Duration: 5 days 06/07/2025 Active Potassium Chloride ER 10 MEQ 1 tablet with food Orally Twice a day; Duration: 30 days 05/25/2025 Active Methenamine Hippurate 1 GM 1 tablet Orally Twice a day; Duration: 30 days 01/24/2025 Active Protonix 40 MG 1 tablet Orally Once a day; Duration: 30 days 07/10/2025 Active Meloxicam 15 MG 1 tablet Orally Once a day; Duration: 30 days 03/15/2025 Active Swhaobsrgl-Qjmk-Yoeai entin 20-2-10 % as directed Externally 06/16/2025 Active Social History Tobacco Use: Social History Observation Description Date Details (start date - stop date) Never Smoker NA - NA Tobacco Use/Smoking Question Answer Notes Patient is a nonsmoker AUDIT-C (Standard) Question Answer Notes Did you have a drink containing alcohol in the p ast year? No Points 0 Interpretation Negative Section Notes: . . . Problems Problem Type SNOMED Code ICD Code Onset Dates Problem Status W/U Status Risk Notes Problem Essential hypertension (86688830) Essential (primary) hypertension (I10) Active confirmed Problem Gastritis and duodenitis (034827688) Gastritis and duodenitis (535.50) Active confirmed Problem Bipolar disorder (69063008) Bipolar disorder, unspecified (F31.9) Active confirmed Problem Hypomagnesemia (586838893) Hypomagnesemia (E83.42) Active confirmed Problem Anxiety disorder (218198983) Anxiety disorder, unspecified (F41.9) Active confirmed Problem Insomnia (895193814) Insomnia, unspecified (G47.00) Active confirmed Problem Chronic pain (72411950) Other chronic pain (G89.29) Active confirmed Problem Streptococcal pharyngitis (87080005) Streptococcal pharyngitis (J02.0) Active confirmed Problem Calculus of kidney (57046130) Calculus of kidney (N20.0) Active confirmed Problem Sprain of calcaneofibular ligament (10434281) Sprain of calcaneofibular ligament of left ankle, initial encounter (S93.412A) Active confirmed Problem Abdominal pain (65883634) Abdominal pain (R10.9) Active confirmed Problem Gastroesophageal reflux disease (822858988) GERD (gastroesophageal reflux disease) (K21.9) Active confirmed Problem Cervical radiculopathy (55026858) Cervical radiculopathy (M54.12) Active confirmed Problem Lumbar radiculopathy (027726473) Lumbar radiculopathy (M54.16) Active confirmed Problem Arthralgia (43378293) Arthralgia (M25.50) Active confirmed Problem Kidney stone (08580188) Kidney stones (N20.0) Active confirmed Problem Nephrolithiasis (69327959) Nephrolithiasis (N20.0) Active confirmed Problem Gastritis (3007392) Gastritis (K29.70) Active c onfirmed Problem Well adult (750811671) Well adult (Z00.00) Active confirmed Problem Paresthesia (28554976) Paresthesia (R20.2) Active confirmed Problem Cellulitis (674813536) Cellulitis (L03.90) Active confirmed Problem Lesion of ulnar nerve (898738726) Ulnar nerve compression, right (G56.21) Active confirmed Problem Pyelonephritis (21124845) Pyelonephritis (N12) Active confirmed Problem Muscle spasm (81159463) Muscle spasm (M62.838) Active confirmed Problem Overweight (201885619) Over weight (E66.3) Active confirmed Problem Lesion of ulnar nerve (915330457) Ulnar nerve compression, left (G56.22) Active confirmed Problem Entrapment of left ulnar nerve (455851677011109) Entrapment of left ulnar nerve (G56.22) Active confirmed Problem Superficial thrombophlebitis (7164591) Superficial thrombophlebitis (I80.9) Active confirmed Problem Change of urinary catheter bag (procedure) (984375039) Catheter (urine) change required (Z46.6) Active confirmed Problem Mass of scalp (922046920) Mass of scalp (R22.0) Active confirmed Problem Lesion of ulnar nerve (439948376) Impingement of right ulnar nerve (G56.21) Active confirmed Problem Acute urinary tract infection (158331110) Acute UTI (N39.0) Active confirmed Problem Kidney stone (78760986) Kidney stone on right side (N20.0) Active confirmed Problem Retroflexion of uterus (13648307) Retroflexion of uterus (N85.4) Active confirmed Problem Disorder of kidney and/or ureter (102583517) Abnormal position of kidney (N28.89) Active confirmed Problem 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, 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 Problem Kidney stone (91786595) Altered urinary elimination pattern due to calculus of kidney (N20.0) Active confirmed Problem Muscle pain (52223216) Myalgia, unspecified site (M79.10) Active confirmed Problem Vesicoureteric reflux (disorder) (938334465) VUR (vesicoureteric reflux) (N13.70) Active confirmed Problem Depression (095659370) Depression, unspecified (F32.A) Active confirmed Problem Low back pain (903838628) Low back pain, unspecified (M54.50) Active confirmed Vital Signs Blood pressure diastolic 72 mm Hg 07/10/2025 Height 66 in 07/10/2025 Blood pressure systolic 122 mm Hg 07/10/2025 Weight 178 lbs 07/10/2025 BMI 28.73 kg/m2 07/10/2025 Procedures Procedure Date Ordered Date Performed Result Body Sit e Ureteral Laser Lithotripsy 01/24/2025 01/24/2025 N/A ESWL 01/24/2025 01/24/2025 N/A Voiding Cystourethrogram 01/05/2025 01/09/2025 N/A Encounters Encounter Location Date Provider Diagnosis [address] [address] 05/28/2025 Kendrick Das Arthralgia M25.[address] [address] 06/24/2025 Kendrick Das [address] [address] 07/09/2025 Kendrick Das [place] [address] [place] [address] 07/11/2025 Kendrick Das Cervical radiculopat hy M54.12 ; Low back pain, unspecified M54.50 ; Low magnesium levels R79.0 and Low potassium syndrome E87.6 [place] [address] [place] [place] [address] 07/25/2025 Kendrick Das [facility] [address] [place] [address] 01/26/2025 [facility] [address] [place] [address] 03/16/2025 Adonis Sanchez Urinary tract infect ion, site not specified N39.0 [facility] [address] [place] [address] 03/28/2025 Kendrick Hoy Low back pain at multiple sites M54.50 [facility] [address] [place] [address] 05/06/2025 Kendrick Joséy [facility] [address] [place] [address] 05/08/2025 Kendrick Joséy [facility] [address] [place] [address] 05/24/2025 Kendrick Das [facility] [address] [place] [address] 09/07/2024 Kendrick Hoy Pyelonephritis N12 a nd Kidney stones N20.0 [facility] [address] [place] [address] 09/08/2024 Kendrick Hoy [facility] [address] [place] [address] 10/03/2024 Kendrick Hoy [facility] [address] [place] [address] 01/05/2025 Adonis Sanchez VUR (vesicoureteric reflux) N13.70 [facility] [address] [place] [address] 01/23/2025 Kendrick Das [facility] [address] [place] [address] 01/24/2025 Kendrick Hoy [facility] [address] [place] [address] 11/24/2024 Adonis Sanchez Acute UTI N39.0 ; Ki dney stones N20.0 ; Pyelonephritis N12 and VUR (vesicoureteric reflux) N13.70 [facility] [address] [place] [address] 09/30/2024 Kendrick Hoy Kidney stones N20.0 and Pyelonephritis N12 [facility] [address] [place] [address] 01/24/2025 Adonis Sanchez VUR (vesicoureteric reflux) N13.70 ; Kidney stones N20.0 and UTI (urinary tract infection), uncomplicated N39.0 [facility] [address] [place] [address] 03/16/2025 Adonis Sanchez Dysuria R30.0 and UT I (urinary tract infection), uncomplicated N39.0 [facility] [address] [place] [place] [address] 09/07/2024 Kendrick Hoy Well adult Z00.00 ; Hypomagnesemia E83.42 ; GERD (gastroesophageal reflux disease) K21.9 and Kidney stones N20.0 [facility] [address] [place] [place] [address] [address] 05/23/2025 Kendrick Hoy Arthralgia M25.50 [place] [address] [place] [place] [address] 06/07/2025 Kendrick Hoy Cellulitis L03.90 [place] [address] [place] [address] 06/16/2025 Kendrick Hoy Cervical radiculopat hy M54.12 and Abdominal pain R10.9 [place] [address] [place] [place] [address] [address] 07/10/2025 Kendrick Hoy Gastroenteritis K52. 9 ; GERD (gastroesophageal reflux disease) K21.9 and Paresthesia R20.2 [facility] [address] [place] [place] [address] 10/06/2024 Kendrick Hoy Acute UTI N39.0 [facility] [address] [place] [place] [address] 12/01/2024 Kendrick Hoy Acute UTI N39.0 ; UT I (urinary tract infection), uncomplicated N39.0 and Dysuria R30.0 [facility] [address] [place] [place] [address] 02/01/2025 Kendrick Hoy Kidney stones N20.0 [facility] [address] [place] [place] [address] 03/15/2025 Kendrick Das Essential (primary) hypertension I10 and Low back pain, unspecified M54.50 [facility] [address] [place] [place] [address] 03/23/2025 Kendrick Das Lumbar radiculopathy M54.16 Assessments Encounter Date Diagnosis (ICD Code) Assessment Notes Treatment Notes Treatment Clinical Notes Section Notes 09/07/2024 Well adult (ICD-10 - Z00.00) 09/07/2024 Hypomagnesemia (ICD-10 - E83.42) 11/24/2024 Acute UTI (ICD-10 - N39.0) 09/30/2024 Kidney stones (ICD-10 - N20.0) 09/30/2024 Pyelonephritis (ICD-10 - N12) 10/06/2024 Acute UTI (ICD-10 - N39.0) 01/24/2025 VUR (vesicoureteric reflux) (ICD-10 - N13.70) 01/24/2025 Kidney stones (ICD-10 - N20.0) 12/01/2024 [...] until they are finished. You can use ajvp-mco-wcikuvi acetaminophen or ibuprofen if needed for pain. [...] M54.12) 06/16/2025 Abdominal pain (ICD-10 - R10.9) 07/10/2025 Gastroenteritis (ICD-10 - K52.9) Get plenty of rest. Stay hydrated by sucking on ice chips or taking small sips of water. You can also try drinking clear soda, clear broths or noncaffeinated sports drinks. Stop eating solid foods for a few hours to let your stomach settle. East back into eating by eating bland, twag-tf-xadplr foods like crackers, toast, gelatin, bananas, rice and chicken. Try to avoid foods/substances including dairy products, caffeine, alcohol, nicotine and fatty or highly seasoned foods. Medications such as ibuprofen or tylenol can make your stomach more upset, so use sparingly if at all. Also avoid ptjw-hjn-lkehyii anti-diarrheal medications because it can make it harder for your body to eliminate the virus. 07/10/2025 GERD (gastroesophageal reflux disease) (ICD-10 - K21.9) protonix - if not better =- dr Blanco for scopes 09/07/2024 Pyelonephritis (ICD-10 - N12) 09/07/2024 Kidney stones (ICD-10 - N20.0) 01/05/2025 VUR (vesicoureteric reflux) (ICD-10 - N13.70) 03/16/2025 Urinary tract infection, site not specified (ICD-10 - N39.0) 03/28/2025 Low back pain at multiple sites (ICD-10 - M54.50) 05/28/2025 Arthralgia (ICD-10 - M25.50) 07/11/2025 Cervical radiculopathy (ICD-10 - M54.12) 07/11/2025 Low back pain, unspecified (ICD-10 - M54.50) 07/11/2025 Low magnesium levels (ICD-10 - R79.0) 07/10/2025 Paresthesia (ICD-10 - R20.2) + FH - MS - diffuse paresthesia - occ double visiuon, also hx opituitary tumor - needs MRI wiht and wiothout cojtrast 12/01/2024 Dysuria (ICD-10 - R30.0) 01/24/2025 UTI (urinary tract infection), uncomplicated (ICD-10 - N39.0) 11/24/2024 Kidney stones (ICD-10 - N20.0) 09/07/2024 GERD (gastroesophageal reflux disease) (ICD-10 - K21.9) 09/07/2024 Kidney stones (ICD-10 - N20.0) 11/24/2024 Pyelonephritis (ICD-10 - N12) 07/11/2025 Low potassium syndrome (ICD-10 - E87.6) 11/24/2024 VUR (vesicoureteric reflux) (ICD-10 - N13.70) 11/24/2024 Other Atrophic left kidney. Needs renogram to check function of left kidney Suspect reflux. Will check VCUG. Litholink for kidney stones. 09/30/2024 Other sending over fo r icv fluids 01/24/2025 Other Left stent in place with bilateral kidney stones. Will need Left [...] DIFF 09/16/2023 CBC WITH DIFF 07/28/2024 ASO ([id number]), BLOOD 025 NUC MED Renal Flow with Lasix 11/24/2024 RHEUMATOID PANEL 05/23/2025 Insulin Level 09/16/2023 CMP - Comprehensive Metabolic Panel 06/20 Magnesium 07/11/2025 XR Upper GI w/ Esophogram 07/10/2025 XR Upper GI w/ Air + Small Bowel 025 Covid-19 PCR ([facility]) 06/29/2024 SED RATE WESTERGREN 09/07/2024 SED RATE WESTERGREN 05/23/2025 VIT B12 AND FOLATE 07/28/2024 MRI BRAIN WO W CON 07/10/2025 MRI CSPINE WO CON 06/16/2025 MRI LSPINE WO CON 03/23/2025 US ABD 06/16/2025 XR HIP LT 2 3V W PELVIS 07/28/2024 XR LSPINE MIN 4 VIEWS 07/28/2024 XR LSPINE MIN 4 VIEWS 03/23/2025 THYROID PANEL (T4/TSH/FREE T3) THYROID PANEL (T4/TSH/FREE T3) 3 XR HIP RT 2 3V W PELVIS 07/28/2024 Next Appt Details Provider Name:Kendrick Das, 10:00:00 AM, [address] [place], [address], Insurance Providers Payer Name Payer Address Payer Phone Subscriber Number Group Number Insured Name Patient Relationship to Insured Coverage Start Date Coverage End Date [employer] [address] [place] [phone] [id number] Wesly Barriga Spouse - patient is the [...] Depression Anxiety Surgical History Surgery Date(Month/Year) Cystoscopy, Holmium Laser Li thotripsy, Lt stent replacement, Rt stent placement- Dr Desai 01/27/25 Cholecystectomy Right Renal Calculus 05/24/2020 Cystoscopy, Left retrograde pyelogram, u reteral stent- Dr. Souza's Hysterectomy, Bilat Salpingectomy- Bernie 05/06/23 urethral dilation Right laser lithotripsy - Dr Villa 12/08 21 ureteral stent placement on Left side 01/22/25 Hospitalization History Reason Date(Month/Year) Multiple for kidney stones and stents
--- OUTSIDE RECORDS SUMMARY | 2025-08-04 07:37 | XMS_ITS | Clinical Summary ---
Author Organization [facility] Address [address] [place] [address] Care Team Providers Care Second Cook And Baker Name Role Phone Ignacio Das MD Primary Care Provider [phone] Allergies No known active allergies Medications ibuprofen 800 MG tablet Take 800 mg by mouth every 8 (eight) hours 3 Active nabumetone (Relafen) 750 MG tablet Take 750 mg by mouth as needed in the morning and 750 mg as needed in the evening. 3 Active Effer-K 25 MEQ effervescent tablet 3 Active estradiol (Climara) 0.05 MG/24HRIndication s:Night sweats Place 1 patch over 7 days on the skin 1 (one) time per week 12 patch 3 5 04/05/20 26 Active Active Problems Problem Noted Date Diagnosed Date Mass of left breast 01/08/2024 Bipolar disorder 06/01/2023 Dysuria 06/01/2023 Entrapment of left ulnar nerve 06/01/2023 Feeling of incomplete bladder emptying Flank pain 06/01/2023 Frequency of urination 06/01/2023 History of kidney stones 06/01/2023 Hypercalciuria 06/01/2023 Hyperoxaluria 06/01/2023 Lesion of ulnar nerve 06/01/2023 Mass of scalp 06/01/2023 Muscle pain 06/01/2023 Microhematuria 06/01/2023 Nocturia 06/01/2023 Overweight 06/01/2023 Pyelonephritis 06/01/2023 Kidney stone 06/01/2023 Retroflexion of uterus 06/01/2023 Sprain of calcaneofibular ligament 06/01/2023 Streptococcal pharyngitis 06/01/2023 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/01/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 06/01/2023 Superficial thrombophlebitis 06/01/2023 Urge incontinence 06/01/2023 Urinary urgency 06/01/2023 UTI (urinary tract infection) 06/01/2023 Abnormal weight gain 04/10/2023 Body mass index (BMI) of 40.1 to 44.9 in adult 0 04/10/2023 Encounter for follow-up exam ination after completed treatment for conditions other than malignant neoplasm 04/10/2023 IUD contraception 04/10/2023 Menorrhagia with regular cycle 04/10/2023 Anxiety 07/26/2020 History of chlamydia 07/26/2020 History of gestational diabetes 07/26/2020 Term delivery with l abor in third trimester ([facility]) 08/06/2018 Anti-M isoimmunization affec ting , 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/2018 Intrauterine ([facility]) 02/18/2018 Astigmatism 05/05/2017 Resolved Problems Problem Noted Date Diagnosed Date Resolved Date Encounter for gynecological examination (general) (routine) without abnormal findings 04/10/2023 04/10/2023 Encounters Date Type Department Care Team Description 05/29/2025 2:45 PM EDT Office Visit [facility] [address] [place] [phone] Alejandra Leiva MD Encounter for removal of sutures (Primary Dx) 05/29/2025 Bamboo flowsheet [facility] [address] [place] [address] Alejandra Leiva MD 05/29/2025 Travel 05/19/2025 Results Follow-Up [facility] [address] [place] [address] Alejandra Leiva MD Dermatopathology exam 05/15/2025 3:30 PM EDT Office Visit [facility] [address] [place] [phone] Alejandra Leiva MD Neoplasm of unspecified behavior of bone, soft tissue, and skin (Primary Dx) 05/15/2025 Travel 05/15/2025 Telephone [facility] [address] [place] [address] Jefferson Gibbs DO from Last 3 Months Family History Medical History Relation Name Comments Diabetes Maternal Grandmother Hypertension Mother Heart disease Paternal Grandfather Melanoma Neg Hx Relation Name Status Comments Father Alive Maternal Grandfather Maternal Grandmother Alive Mother Alive Paternal Grandfather Paternal Grandmother Sibling Alive Social History Tobacco Use Types Packs/Day Years Used Date Smoking Tobacco: Never Smokeless Tobacco: Never Tobacco Cessation:Counseling Given: Not Answered [...] (185 lb) 04/05/2025 1:06 PM EDT Height 167.6 cm (5' 6 ) 06/16/2023 2:48 PM EDT Body Mass Index 29.86 06/16/2023 2:48 PM EDT Plan of Treatment Upcoming Encounters Date Type Department Care Team (Late st Contact Info) Description 04/09/2026 9:00 AM EDT Office Visit [facility] [address] [place] [phone] Jefferson Gibbs DO [address] [facility] [address] [place], [place] [phone] 05/29/2026 1:15 PM EDT Office Visit [facility] [address] [place] [address] Alejandra Leiva MD [address] [place] [address] Procedures Procedure Name Priority Date/Time Associated Diagnosis Comments SKIN REPAIR Routine 05/15/2025 3:41 PM EDT Neoplasm of unspecified behavior of bone, soft tissue, and skin SKIN EXCISION Routine 05/15/2025 3:41 PM EDT Neoplasm of unspecified behavior of bone, soft tissue, and skin DERMATOPATHOLOGY EXAM Routine 05/15/2025 12:00 AM EDT Neoplasm of unspecified behavior of bone, soft tissue, and skin from Last 3 Months Results * Skin repair (05/15/2025 3:41 PM [...] bleeding, or complications. Dressing type: pressure dressing us Alejandra Leiva MD DERM PROCEDURE ORDERABLES Fin al Result * Skin excision (05/15/2025 3:41 PM EDT) Narrative Falguni Hui LPN - 05/15/2025 3:41 PM EDT Lesion [...] 6.0 ml Estimated blood loss: 1.0 ml us Alejandra Leiva MD DERM PROCEDURE ORDERABLES Fin al Result * Dermatopathology exam (05/15/2025 12:00 AM EDT) SPECIMEN TYPE ------ SPECIMEN: RIGHT SHOULDER- POSTERIOR ------ [facility] ICD10 Code D23.60 [facility] PROTOCOL EXC - EXCISION NÉSTOROR [facility] Final Diagnosis SCAR AND WOUND REPAIR REACTION, EXCISED (SEE COMMENT). COMMENT: A residual or recurrent melanocytic lesion is not seen. This case is reviewed in conjunction with the previous biopsy as listed in the case history summary. [facility] Gross Text 3 blocks, (tips in 1) (3 in 2, 3) (jg/kb) (05/17/25) [facility] Microscopic Description Microscopic examination performed. [facility] CPT 22171*1 [facility] Skin Topography unknown / Unknown 05/15/2025 3:41 PM EDT Comment:Differential Diagnos is: Severely atypical nevus Check Margins: Yes Previous accession number: [id number] 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, soft tissue, and skin Plan: Skin excision, Skin repair us Alejandra Leiva MD LAB PATHOLOGY ORDERABLES Jessica caruso Result [facility] from Last 3 Months Insurance [employer] Care Teams Second Cook And Baker Relationship Specialty Start Date End Date Ignacio Das MD [address] [place] [address] PCP - General Family Medicine 04/13/23
--- OUTSIDE RECORDS SUMMARY | 2025-08-04 07:37 | XMS_ITS | Encounter Summary ---
Author Organization [facility] Address [address] [place] [address] Care Team Providers Care Deep Submergence Vehicle Operator Name Role Phone Ignacio Das MD Primary Care Provider [phone] Encounter Details Date Type Department Care Team (Latest Contact Info) Description 05/19/2025 Results Follow-Up [facility] [address] [place] [address] Alejandra Leiva MD [address] [place] [address] Dermatopathology exam Social History Tobacco [...] EDT Office Visit [facility] [place] [facility] [address] [place] [phone] Jefferson Gibbs DO [address] [facility] [address] [place], [place] [phone] 05/29/2026 1:15 PM EDT Office Visit [facility] [address] [place] [address] Alejandra Leiva MD [address] [place] [address] documented as of this encounter Visit Diagnoses Not on filedocumented in this encounter Care Teams Deep Submergence Vehicle Operator Relationship Specialty Start Date End Date Ignacio Das MD [address] [facility] [place] [phone] PCP - General Family Medicine 04/13/23 documented as of this encounter
--- OUTSIDE RECORDS SUMMARY | 2025-08-04 07:37 | XMS_ITS | Encounter Summary ---
Author Organization [facility] Address [address] [place] [address] Care Team Providers Care Security Solutions Engineer Name Role Phone Ignacio Das MD Primary Care Provider [phone] Encounter Details Date Type Department Care Team (Late Contact Info) Description 12/29/2023 Clinisync Result Encounter [facility] External Department Unsolicited Jefferson Gibbs DO [address] [facility] [place] [address] Social History Tobacco Use Types Packs/Day Years [...] Visit [facility] [place] [facility] [address] [facility] [place] [phone] Jefferson Gibbs DO [address] [facility] [place] [address] 05/29/2026 1:15 PM EDT Office Visit [facility] [address] [place] [address] Alejandra Leiva MD [address] [place] [address] documented as of this encounter Procedures Procedure Name Priority Date/Time Associated Diagnosis Comments US GUIDED BREAST BIOPSY LT 12/29/2023 8:24 AM EDT documented in this encounter Results * US GUIDED BREAST BIOPSY LT (12/29/2023 8:24 AM EDT) Anatomical Region Laterality Modality Radiographic Megan ging 12/29/2023 8:24 AM EDT Narrative 12/29/2023 8:27 [place] [address] Ultrasound Report Signed Patient: DIANA BEAVER MR#: [id number] : 1990 Acct:[id number] Age/Sex: 33 / F ADM Date: 12/29/23 Loc: US Attending Dr: Jefferson Gibbs D.O. Ordering Physician: Jefferson Gibbs D.O. Date of Service: 12/29/23 Procedure(s): US breast vac bx w/ clip LT Accession Number(s): [id number] cc: Jefferson Gibbs D.O.; Ignacio Das M.D. [address] [address] Patient Name: DIANA BEAVER MRN: [id number] date: 1990 Sex: F Assigned Patient Location: Current Patient Location: US Accession/Order Number: [id number] Exam Date: 12/29/2023 07:20 Report Date: 12/29/2023 [...] M.D. Signed By: 12/29/23826 DD/ 3 TD/TT: Sand Control Worker: Procedure Note Radiology, Radiologist, MD - 12/29/2023 [place] [address] Ultrasound Report Signed Patient: DIANA BEAVER LMR#: [id number] : 1990Acct:[id number] Age/Sex: 33 / FADM Date: 12/29/23 Loc: US Attending Dr: Jefferson Gibbs D.O. Ordering Physician: Jefferson Gibbs D.O. Date of Service: 12/29/23 Procedure(s): US breast vac bx w/ clip LT Accession Number(s): [id number] cc: Jefferson Gibbs D.O.; Ignacio Das M.D. The [address] [id number] Patient Name: DIANA BEAVER MRN: [id number] date: 1990 Sex: F Assigned Patient Location: US Current Patient Location: US Accession/Order Number: [id number] Exam Date: 12/29/2023 07:20 Report Date: 12/29/2023 [...] Graff M.D. Signed By:12/29/23826 DD/ 3 TD/TT: Sand Control Worker: us Jefferson Bernie DO IMG XR PROCEDURES Final Result documented in this encounter Visit Diagnoses Not on filedocumented in this encounter Care Teams Security Solutions Engineer Relationship Specialty Start Date End Date Ignacio Das MD [address] [place] [address] PCP - General Family Medicine 04/13/23 documented as of this encounter
--- OUTSIDE RECORDS SUMMARY | 2025-08-04 07:37 | XMS_ITS | Encounter Summary ---
Author Organization [facility] Address [address] [place] [address] Care Team Providers Care Grassland Conservationist Name Role Phone Ignacio Das MD Primary Care Provider [phone] Encounter Details Date Type Department Care Team (Late Contact Info) Description 12/29/2023 Clinisync Result Encounter [facility] External Department Unsolicited Jefferson Gibbs DO [address] [facility] [place] [address] Social History Tobacco Use Types Packs/Day Years [...] EDT Office Visit [facility] [place] [facility] [address] [facility] [place] [phone] Jefferson Gibbs DO [address] [facility] [place] [address] 05/29/2026 1:15 PM EDT Office Visit [facility] [address] [place] [address] Alejandra Leiva MD [address] [place] [address] documented as of this encounter Procedures Procedure Name Priority Date/Time Associated Diagnosis Comments MM POST BIOPSY LT 12/29/2023 8:5 7 AM EDT documented in this encounter Results * MM POST BIOPSY LT (12/29/2023 8:57 AM EDT) Anatomical Region Laterality Modality Other 12/29/2023 8:57 AM EDT Narrative 12/29/2023 8:57 AM EDT The [place] [phone] Mammography Report Signed Patient: DIANA BEAVER MR#: [id number] : 1990 Acct:[id number] Age/Sex: 33 / F ADM Date: 12/29/23 Loc: US Attending Dr: Jefferson Gibbs D.O. Ordering Physician: Jefferson Gibbs D.O. Results: Date of Service: 12/29/23 Follow Up: Procedure(s): MM post biopsy LT Accession Number(s): [id number] cc: Jefferson Gibbs D.O.; Ignacio Das M.D. Patient Name: DIANA BEAVER MR#: [id number] : 1990 Exam Date: 12/29/2023 Ordering Doctor: [...] Signed By: 12/29/23 0857 DD/ 0857 TD/TT: Transfill Technician: Procedure Note Radiology, Radiologist, - 12/29/[address] [address] Mammography Report Signed Patient: DIANA BEAVER LMR#: [id number] : 1990Acct:[id number] Age/Sex: 33 / FADM Date: 12/29/23 Loc: US Attending Dr: Jefferson Gibbs D.O. Ordering Physician: Jefferson Gibbs D.O.Results: Date of Service: 12/29/23Follow Up: Procedure(s): MM post biopsy LT Accession Number(s): [id number] cc: Jefferson Gibbs D.O.; Ignacio Das M.D. Patient Name: DIANA BEAVER MR#: [id number] : 1990 Exam Date: 12/29/2023 Ordering Doctor: [...] M.D. Signed By:12/29/23 0857 DD/ 0857 TD/TT: Transfill Technician: Jefferson Gibbs DO [facility] Final Result documented in this encounter Visit Diagnoses Not on filedocumented in this encounter Care Teams Grassland Conservationist Relationship Specialty Start Date End Date Ignacio Das MD [facility] [place] [address] PCP - General Family Medicine 04/13/23 documented as of this encounter
--- OUTSIDE RECORDS SUMMARY | 2025-08-04 07:37 | XMS_ITS | Encounter Summary ---
Author Organization [facility] Address [address] [place] [address] Care Team Providers Care Institute Scientist Name Role Phone Ignacio Das MD Primary Care Provider [phone] Encounter Details Date Type Department Care Team (Late Contact Info) Description 12/23/2023 Clinisync Result Encounter [facility] External Department Unsolicited Tamiko Chacon PA [address] [facility] [address] [place], [facility] Social History Tobacco Use Types Packs/Day Years [...] AM EDT Office Visit [facility] [address] [facility] [place] [address] Jefferson Gibbs DO [address] [facility] [address] [place], [facility] 05/29/2026 1:15 PM EDT Office Visit [facility] [address] [place] [phone] Alejandra Leiva MD [address] [place] [address] documented as of this encounter Procedures Procedure Name Priority Date/Time Associated Diagnosis Comments MM TOMOSYNTHESIS DIAGNOSTIC BI 12/23/2023 1:47 PM EST documented in this encounter Results * MM TOMOSYNTHESIS DIAGNOSTIC BI (12/23/2023 1:47 PM EST) Anatomical Region Laterality Modality Other 12/23/2023 1:47 PM EST Narrative 12/23/2023 1:48 [place] [address] Mammography Report Signed Patient: DIANA BEAVER MR#: [id number] : 1990 Acct:[id number] Age/Sex: 33 / F ADM Date: 12/23/23 Loc: MAMMO Attending Dr: Jefferson Gibbs D.O. Ordering Physician: Tamiko Chacon Results: Date of Service: 12/23/23 Follow Up: Procedure(s): MM tomosynthesis diagnostic BI Accession Number(s): [id number] cc: Tamiko Chacon; Ignacio Das M.D. Patient Name: DIANA BEAVER MR#: [id number] : 1990 Exam Date: 12/23/2023 Ordering Doctor: [...] Treatments None Family Cancers None LOCATION: The [facility] BREAST COMPOSITION: Extremely dense, which lowers the [...] Signed By: 12/23/23 1348 DD/ 1347 TD/TT: Plant Taxonomy Teacher: Procedure Note Radiology, Radiologist, MD - 12/23/2023 [place] [address] Mammography Report Signed Patient: DIANA BEAVER LMR#: [id number] : 1990Acct:[id number] Age/Sex: 33 / FADM Date: 12/23/23 Loc: MAMMO Attending Dr: Jefferson Gibbs D.O. Ordering Physician: Tamiko Najeraults: Date of Service: 12/23/23Follow Up: Procedure(s): MM tomosynthesis diagnostic BI Accession Number(s): [id number] cc: Tamiko Chacon; Ignacio Das M.D. Patient Name: DIANA BEAVER MR#: [id number] : 1990 Exam Date: 12/23/2023 Ordering Doctor: [...] M.D. Signed By:12/23/23 1348 DD/ 1347 TD/TT: Plant Taxonomy Teacher: Tamiko MADDOX [facility] Final Result documented in this encounter Visit Diagnoses Not on filedocumented in this encounter Care Teams Institute Scientist Relationship Specialty Start Date End Date Ignacio Das MD [address] [place] [address] PCP - General Family Medicine 04/13/23 documented as of this encounter
--- OUTSIDE RECORDS SUMMARY | 2025-08-04 07:37 | XMS_ITS | Encounter Summary ---
Author Organization [facility] Address [address] [place] [address] Care Team Providers Care Ship Fastener Name Role Phone Ignacio Das MD Primary Care Provider [phone] Encounter Details Date Type Department Care Team (Late Contact Info) Description 12/23/2023 Clinisync Result Encounter [facility] External Department Unsolicited Jefferson Gibbs DO [address] [facility] [place] [address] Social History Tobacco Use Types Packs/Day Years [...] OBGYN [address] [facility] [place] [phone] eJfferson Gibbs DO [address] [facility] [place] [address] 05/29/2026 1:15 PM EDT Office Visit [facility] [address] [place] [address] Alejandra Leiva MD [address] [place] [address] documented as of this encounter Procedures Procedure Name Priority Date/Time Associated Diagnosis Comments US BREAST LT LIMITED 12/23/2023 1:47 PM EST documented in this encounter Results * US BREAST LT LIMITED (12/23/2023 1:47 PM EST) Anatomical Region Laterality Modality Other 12/23/2023 1:47 PM EST Narrative 12/23/2023 1:48 [place] [address] Ultrasound Report Signed Patient: DIANA BEAVER MR#: [id number] : 1990 Acct:[id number] Age/Sex: 33 / F ADM Date: 12/23/23 Loc: MAMMO Attending Dr: Jefferson Gibbs D.O. Ordering Physician: Jefferson Gibbs D.O. Date of Service: 12/23/23 Procedure(s): US breast LT limited Accession Number(s): [id number] cc: Jefferson Gibbs D.O.; Ignacio Das M.D. Patient Name: DIANA BEAVER MR#: [id number] : 1990 Exam Date: 12/23/2023 Ordering Doctor: [...] Treatments None Family Cancers None LOCATION: The [facility] BREAST COMPOSITION: Extremely dense, which lowers [...] Signed By: 12/23/23 1348 DD/ 1347 TD/TT: Parts Salesman: Procedure Note Radiology, Radiologist, - 12/23/2023 [place] [address] Ultrasound Report Signed Patient: DIANA BEVAER LMR#: [id number] : 1990Acct:[id number] Age/Sex: 33 / FADM Date: 12/23/23 Loc: MAMMO Attending Dr: Jefferson Gibbs D.O. Ordering Physician: Jefferson Gibbs D.O. Date of Service: 12/23/23 Procedure(s): US breast LT limited Accession Number(s): [id number] cc: Jefferson Gibbs D.O.; Ignacio Das M.D. Patient Name: DIANA BEAVER MR#: [id number] : 1990 Exam Date: 12/23/2023 Ordering Doctor: [...] Treatments None Family Cancers None LOCATION: The [facility] BREAST COMPOSITION: Extremely dense, which lowers [...] M.D. Signed By:12/23/23 1348 DD/ 1347 TD/TT: Parts Salesman: [facility] DO [facility] Final Result documented in this encounter Visit Diagnoses Not on filedocumented in this encounter Care Teams Ship Fastener Relationship Specialty Start Date End Date Ignacio Das MD [address] [place] [address] PCP - General Family Medicine 04/13/23 documented as of this encounter
--- OUTSIDE RECORDS SUMMARY | 2025-08-04 07:37 | XMS_ITS | Clinical Summary ---
Author Organization [facility] Address [address] [place] [address] Care Team Providers Care Ash Conveyor Operator Name Role Phone Ignacio Das MD Unavailable [phone] Social History Tobacco Use Types Packs/Day Years Used Date Smoking Tobacco: Never Assessed Area Deprivation Index Answer Date Corky rded National Score (1-100), lower number is lower ri sk 70 11/01/2022 State Score (1-10), lower number is lower risk N ot on file 11/01/2022 Data from: https://www.neighborhoodatlas.medicine.[facility].edu/. Last address used for calculation [address] [place] [address] 11/01/2022 Comments Unknown Sex and Gender Information [...] Vaccine (1 - 3-dose SCDM series) 2018 Covid-19 Vaccine (2024-2 6 season) 2025 Influenza Vaccine (#1) 2025 9, 08/08/2018, 08/22/2009 DTaP,Tdap,Td Vaccine (7 - Td or Tdap) 02/06/2031 02/06/2021, 08/09/2018, 04/10/1993, Additional history exists Hepatitis B Vaccine Completed 06/19/2004, 03/27/2004, 12/18/2003 Insurance MEDICAID Care Teams Ash Conveyor Operator Relationship Specialty Start Date End Date Ignacio Das MD Referring Family Medicine 09/01/22
--- OUTSIDE RECORDS SUMMARY | 2025-08-04 07:38 | XMS_ITS | Encounter Summary ---
Author Organization [facility] Address [address] [place] [address] Care Team Providers Care Master Certified Rv Technician Name Role Phone Ignacio Das MD Primary Care Provider [phone] Encounter Details Date Type Department Care Team (Late Contact Info) Description 04/18/2025 Results Follow-Up [facility] [address] [facility] [place] [phone] Tana Shell LPN [address] [facility] [address] [facility] [facility] IGP,APTIMA HPV,AGE GDLN Social History Tobacco [...] AM EDT Office Visit [facility] [address] [facility] [place] [address] Jefferson Gibbs DO [address] [facility] [address] [place], [place] [address] 05/29/2026 1:15 PM EDT Office Visit [facility] [address] [place] [address] Alejandra Leiva MD [address] [facility] [address] [place] [address] documented as of this encounter Visit Diagnoses Not on filedocumented in this encounter Care Teams Master Certified Rv Technician Relationship Specialty Start Date End Date Ignacio Das MD [address] [facility] [place] [address] PCP - General Family Medicine 04/13/23 documented as of this encounter
--- OUTSIDE RECORDS SUMMARY | 2025-08-04 07:38 | XMS_ITS | Encounter Summary ---
Author Organization [facility] Address [address] [place] [address] Care Team Providers Care Garage Hand Name Role Phone Ignacio Das MD Primary Care Provider [phone] Encounter Details Date Type Department Care Team (Late Contact Info) Description 04/18/2025 Orders Only [facility] [address] [facility] [address] [place] [address] Tana Shell LPN [address] [place] [address] Social History Tobacco Use Types Packs/Day Years [...] AM EDT Office Visit [facility] [address] [facility] [place] [address] Jefferson Gibbs DO [address] [place] [phone] 05/29/2026 1:15 PM EDT Office Visit [facility] [address] [place] [address] Alejandra Leiva MD [address] [place] [address] documented as of this encounter Procedures Procedure [...] on filedocumented in this encounter Care Teams Garage Hand Relationship Specialty Start Date End Date Ignacio Das MD [address] [place] [address] PCP - General Family Medicine 04/13/23 documented as of this encounter
--- OUTSIDE RECORDS SUMMARY | 2025-08-04 07:38 | XMS_ITS | Encounter Summary ---
Author Organization [facility] [employer] [facility] tem Address [id number] [address] [place] [address] Care Team Providers Care Rn Medicare Name Role Phone Ignacio Das MD Primary Care Provider [phone] Encounter Details Date Type Department Care Team (Late st Contact Info) Description 07/26/2020 Orders Only Maternal- Medicine at [facility] [address] [place] [address] External, Scanning Provider Social History Tobacco Use [...] on filedocumented in this encounter Care Teams Rn Medicare Relationship Specialty Start Date End Date Ignacio Das MD PCP - General Family Medicine 09/17/20 documented as of this encounter
--- OUTSIDE RECORDS SUMMARY | 2025-08-04 07:38 | XMS_ITS | Encounter Summary ---
Author Organization [facility] Address [address] [place] [address] Care Team Providers Care Window Installer Name Role Phone Ignacio Das MD Primary Care Provider [phone] Encounter Details Date Type Department Care Team ([facility] Contact Info) Description 04/30/2023 Abstract [facility] [address] [employer] [facility] [facility] [place] [phone] Jefferson Gibbs DO [address] [place] [address] Social History Tobacco Use Types Packs/Day Years [...] Upcoming Encounters Date Type Department Care Team ([facility] Contact Info) Description 04/09/2026 9:00 AM EDT Office Visit [place] [facility] [address] [place] [phone] Jefferson Gibbs DO [address] [place] [id number] 05/29/2026 1:15 PM EDT Office Visit [facility] [address] [place] [address] Alejandra Leiva MD [address] [facility] [address] [place] [address] documented as of this encounter Visit Diagnoses Not on filedocumented in this encounter Care Teams Window Installer Relationship Specialty Start Date End Date Ignacio Das MD [address] [place] [address] PCP - General Family Medicine 04/13/23 documented as of this encounter
--- OUTSIDE RECORDS SUMMARY | 2025-08-04 07:38 | XMS_ITS | Clinical Summary ---
Author Organization [facility] Address [address] [place] [address] Care Team Providers Care Floor Covering Printer Assistant Name Role Phone Ignacio Das MD Primary Care Provider [phone] Allergies No known active allergies Medications tamsulosin [...] drink = 0.6 oz pur e alcohol) [facility] [place] [facility] Utilities Answer Date Recorded In the past 12 months has [employer], gas, oil, or water company threatened to [...] any time in the past 12 m [facility], were you homeless or living in a half-way (including now)? No 01/26/2025 Food Insecurity Answer [...] 2021 HPV (without or with Pap) 2021 Flu vaccine (#1) 05/19/2025 08/01/2019, , 08/22/2009 COVID-19 Vaccine ( season) 2025 DTaP/Tdap/Td vaccine (7 - Td or Tdap) [...] this topic Medical Devices Implanted Type Area Forestry Pilot Device Identifier Shelf Expiration Date Model / Serial / Lot Stent Uret 6fr L26cm Percflx Hydr+ Tapr Tip Grad - [id number] Implanted:Qty : 1 on 01/22/2025 by Sanya Trevizo MD at [facility] Left: Ureter [employer] [id number] 09/06/2027 [id number] 30 / / [id number] Stent Uret 6fr L26cm Percflx Hydr+ Dbl Pgtl Thrd 2 - [id number] Implanted:Qty : 1 on 01/27/2025 by Azar Espino MD at [facility] Left: Ureter [employer] [id number] 11/24/2027 [id number] 30 / / [id number] Stent Uret 6fr L26cm Percflx Hydr+ Dbl Pgtl Thrd 2 - [id number] Implanted:Qty : 1 on 01/27/2025 by Azar Espino MD at [facility] Right: Ureter [employer] [id number] 11/24/2027 [id number] 30 / / [id number] Insurance ALLIED BENEFIT SYSTEM Advance Directives * Full Code (Latest Code Status on File) Date Activated Date Inactivated Comments 01/26/2025 5:26 PM 01/29/2025 11:47 AM * Full Code Date Activated Date Inactivated Comments 01/21/2025 11:46 PM 01/22/2025 6:02 PM Care Teams Floor Covering Printer Assistant Relationship Specialty Start Date End Date Ignacio Das MD [address] [place] [address] PCP - General Family Medicine 01/05/25
--- OUTSIDE RECORDS SUMMARY | 2025-08-04 07:38 | XMS_ITS | Encounter Summary ---
Author Organization [facility] Address [address] [place] [address] Care Team Providers Care Retail Representative Name Role Phone Ignacio Das MD Primary Care Provider [phone] Encounter Details Date Type Department Care Team ([facility] Contact Info) Description 04/30/2023 Abstract [facility] [address] [facility] [phone] Jefferson Gibbs DO [address] [place] [address] Social History Tobacco Use Types Packs/Day Years [...] Upcoming Encounters Date Type Department Care Team ([facility] Contact Info) Description 04/09/2026 9:00 AM EDT Office Visit [place] [facility] [address] [place] [phone] Jefferson Gibbs DO [address] [place] [id number] 05/29/2026 1:15 PM EDT Office Visit [facility] [address] [place] [address] Alejandra Leiva MD [address] [facility] [address] [place] [address] documented as of this encounter Visit Diagnoses Not on filedocumented in this encounter Care Teams Retail Representative Relationship Specialty Start Date End Date Ignacio Das MD [address] [place] [address] PCP - General Family Medicine 04/13/23 documented as of this encounter
--- OUTSIDE RECORDS SUMMARY | 2025-08-04 07:38 | XMS_ITS | Patient Health Record ---
Author Organization [facility] es Address [address] [place] [address] Care Team Providers Care Minor League Baseball Player Name Role Phone Iván Puckett Primary Care Provider [phone] Reason For Referral No Information Plan Of Treatment No Information Insurance Providers Payer Name Payer Address Payer Phone Subscriber Number Group Number Insured Name Patient Relationship to Insured Coverage Start Date Coverage End Date Dental Counce [employer] [address] [address] [place] [address] [phone] [id number] CORI BARRIGA Self - patient is the insured 3 [employer] [facility] Counce [address] [place] [address] [id number] CORI BARRIGA Self - patient is the insured 3
--- OUTSIDE RECORDS SUMMARY | 2025-08-04 07:38 | XMS_ITS | Encounter Summary ---
Author Organization [facility] Address [address] [place] [address] Care Team Providers Care Pocket Maker Name Role Phone Ignacio Das MD Primary Care Provider [phone] Encounter Details Date Type Department Care Team (Latest Contact Info) Description 04/18/2025 Results Follow-Up [facility] [address] [place] [address] Alejandra Leiva MD [address] [place] [address] Dermatopathology exam Social History Tobacco [...] [address] [facility] [place] [phone] Jefferson Gibbs DO [address] [facility] [address] [place], [place] [id number] 05/29/2026 1:15 PM EDT Office Visit [facility] [address] [place] [address] Alejandra Leiva MD [address] [place] [address] documented as of this encounter Visit Diagnoses Not on filedocumented in this encounter Care Teams Pocket Maker Relationship Specialty Start Date End Date Ignacio Das MD [address] [facility] [place] [phone] PCP - General Family Medicine 04/13/23 documented as of this encounter
--- OUTSIDE RECORDS SUMMARY | 2025-08-04 07:38 | XMS_ITS | CCD ---
Author Organization [facility] CliniSyde Care Team Providers Care Senior Marketing Coordinator Name Role Phone Domingo Snyder MD Unavailable [...] Unavailable BERNIE ., DR TOLBERT Attending Unavailable ELK GROVE, DR GLEN Alford Consulting Unavailable BERNIE ., [...] Unavailable MD Domingo Snyder Primary Care Provider [phone] MD Arnulfo Aviles Admit Provider MD Arnulfo Aviles Attending Provider [phone] Domingo Snyder MD Primary Care Provider [phone] Domingo Snyder MD Attending Provider ADONIS GUERRA Referring Unavailable DOMINGO SNYDER Primary Care Unavailable Domingo Snyder MD Primary Care Provider [phone] Domingo Snyder MD Primary Care Provider [phone] Domingo Snyder MD Attending Provider Javi Tanner PA-C Attending Provider [phone] DOMINGO SNYDER Primary Care Unavailable JAVI TANNER [...] Unavailable Domingo Snyder MD Primary Care Provider [phone] Vj Fraire DO Attending Provider Domingo Snyder [...] August 16, 2022 11:38am 168 hr estradiol 0.20416 mg/hr transdermal system (14 sources) Estrogen Start: [...] as needed in the evening. 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 Dressing type: pressure dressing [facility] No Panel InformationOrdered By: Falguni Morris on 05-15-2025 [facility] Urine Cultureon 05-05-2025 Bacteria identified Cx Nom (U) ORGANISM: Citrobacter freundii complex (O:CITFRC) [place] Count 75,000 Aerobic ANASTASIA Charge (NMIC56) ---- [...] RESISTANT TO ALL B-LACTAM DRUGS. PERFORMED BY: [facility] [address] [place] [address] PATHOLOGIST RESOURCE FORESTER CALLUM ALVA M.D. Normal [facility] Comment on above: Performed By: #### C UU #### [facility] [address] [place] [address] [place] IGP,APTIMA HPV,AGE GDLNon AGE GDLN ACOG TESTING Note . [facility] Comment on above: TESTS RESULT FLAG UN ITS REF RANGE LAB Clinician Provided Cytology Information Source.............Vagina No. of containers..01 ThinPrep Vial Age Algo ACOG Radha... FLAG LEGEND: L-Low Normal,H-High Normal,LL-Alert Low,HH-Alert High <-Panic Low,>-Panic High,A-Abnormal,AA-Critical Abnormal Performed at: 01 =[address] [place] [address] Shereen Caal MD, HPV APTIMA Negative Negative [facility] Comment on above: This nucleic acid am plification test detects fourteen high- risk HPV types (16,18,31,33,35,39,45,51,52,56,58,59,66,68) without differentiation. Performed at: =[address] [id number] Social Work Lecturer: Shereen Caal MD, Phone: [phone] Performed at: [address] [id number] Social Work Lecturer: Shereen Caal MD, Phone: [phone] IGP, APTIMA HPV, RFX 16/18,45 Note Abnormal . [facility] Comment on above: TESTS RESULT FLAG UN ITS REF RANGE LAB DIAGNOSIS: [A] 02 EPITHELIAL CELL ABNORMALITY. ATYPICAL SQUAMOUS CELLS OF UNDETERMINED SIGNIFICANCE (ASC-US). Recommendation: [A] 02 Suggest follow up as clinically appropriate. Specimen adequacy: 02 Satisfactory for evaluation. Performed by: 02 Tamiko Barrow, Fat Pressroom Worker (ASCP) Electronically si... 02 Capri Boston MD, [...] <-Panic Low,>-Panic High,A-Abnormal,AA-Critical Abnormal Performed at: [address] [address] Shereen Caal MD, Interpretation and review of laboratory results Abnormal [facility] SPATULA-ALONE [facility]AG[facility] No Panel Informationon 04-10 Type of biopsy: formerly [facility] Informed consent: discussed and consent obtained Informed [...] sent for H&E Number of sutures: 2 [facility] Think Passenger Type of biopsy: tangential Informed consent: discussed [...] taken Amount of lidocaine used: 1.0 cc [facility] Outside Recordson 04-03-2025 Outside Records [id number] [facility] Coding Summaryon 03-23-2025 Coding Summary HTMLBase 64 QwyhxxcqJZm1gEj+PGhlY WQ+FD5RAJInY24zwQUchF 8wW7BWZEgNJczjFTPKCHe QHwSifkOkDS7lhHKgFPNd IC8+WI4qUHPaXnqmqXZmk 8B7pLG3P03oan8xKMpxzJ U1ZTBwNlOyvtmzr6muuRx 6IDcuNmluOyBt OMXmuD22RMT6qF33Lz27d OZsbQUth8pyqBp6WbClXN JvLJJ6jMkgQRwfo3GlNIG wO08irIDwd0X2 DAXxoZtxbECsTvKmqAK6d T1lTEacxutum4qipanqJa l3zu27cVBje6F3qBX7Z6S qyfX1FLZmkBKp PystsKVNqP3qdhczv5bbu iqhHbXgYFRaVCy6GHq0GL CpsQdxTaDfXA82SHV1XQP jlrFzF9ZgJVLu uDsoOfF9z9C2Lu1CE5QOI bczX7EIWGRTOHrjoDU+PC 08ma01N5NjRpzgLiu0BXA nGPL4pXV6nZ1a NBVfEUnob3U6aKL1A9Fca qSutx0vf6zpZNLaGYbuS2 1iqNHxz7Q2DDXvdOR0LPB yxAleOfLnzP08 Oyc+AMWoiNusj1WaLljef 3mbs6jjbCh6IcalQUDjge IbhWwsJBI1h3KzRd6qKLZ etXR3zLS5dL5v NqAoHhV8LEojG069LbInl EMjLeajM87wC0JtuSU+PH ApRcu8GRKdgSaqRY5bZ4A hZGRpbmctbGVm oIygPF7nSXXnrgzeBMFgn J3dVTTfR5d7DfUrOdK4TT doA9QzJIZjqtrdAf85cW8 yOyYbQlY8ZAoq K2YrjsR3HNTdvXEbBNlsW MA8N45lb3U1AUVfKDTnYR Q1bDE5uV6djGtyqvogwGY mdDsgdmVydGlj ZFxbQGqhT316GUJczRrcN kNvZGluZyBEYXRlOiAgMD YvMDUvMjAyNTwvdGQ+PHR nRKE3hQogLTSp uLJeFFmvEf7azVydpDdyD V7kLLXmgtvcWPHjmS7tMB IyfACmzBhvJJ5vXKRvvab jc827IePiRRV5 LXLpxDHsR0EleN9kYvHgV DEdPKQgU1AdaENwETbzG7 02KSkxQxS8ALMesoSbC9R sLWFsaWduOiB0 n6A7Zo6Tj1HoqousN5Uwg AVuZhUxCufrQWe5P3PfNl wvdHI+PA10HTGhZG67IEs 8GSZ2jIxdLJha HEEsD7BcwJ6uZfRgSDSzK GRkOyc+PHRhYmxlIHdpZH RoPScxMDAlJyBzdHlsZT0 yWq7oBFPcEIHq aHcwxLRgBlVln1uaJGCmP NpjVX5gmKzhE7OawXC1JW Mtb4m1Ob98Q53mO5GthVQ +RBUziBT9jQX1 cH5nZvKrIjZ5HZygB765U uYujGByIyffi5yzj2bqyM t5AqL5GSMzlxKdoXigNUG 9u7LbGd21F95g IHdpZHRoPSIxNSUiIHZhb Ohhoc2kxD4gVc2+PGNvbC B7tIV0aR0jImKrCvW5YXv tS728WnLcfCPv Kxtjb2cub2izePf5MhOaI QBxbmTqyQuhKGA3v4JqCv 36C7NjkPfdr0HzNou4ik3 0oCJaj0J6rLV8 T0VzACAhirifdWYcfSfxW Y7fRPNpraekCGVchE1aGF GfX5m8WvWlUdU6TUptF2E qycB3XOSsnSYp OQAlqEDUjB3tdkifg8iir azdPqCvNRXcTFj5ETw3SR RdlZszAzGbPOB2AwX3RAS 4eILufB2fwXyh tjvbfT6eNyq+OLX1bIVbj JXFJD7eHdsogPO+PHRkIH S9sGjmFAopQCQefZ5bNCU nS5l6GqSqAlF3 JZgcT0XjpbF2XSAmwVIoQ JVynQIRcE7wuufgx4idzq njZjWzXKUjHVr7DNi5BYK saWduOiBsZWZ0 JiZ2PIH3vZKmuU5ceXrfl ubixW0hCtd+QmlydGggRG D0XQe5Y4PmMqf3LCKvwBh cQK0kaVTiMVrs Tx6glVcusJizAC3vYTKxw fyag050VjIcg7hdYOCeoH LkGCvjJCE9P37kl4Q7QNC uPVEcLKK2dOB3 bP4quWfcnhnlsVSphObqv tSaiAuxRLrzOYmwV242SY CiyQhkLeGhKVl9E8DkQwx 4FAMhfJamNU6u cHIgRZbhNy0niKcxdNdbJ J8nEZPkfzkgk229ErNgm5 srUPTdyJMwOVbtPQG7F07 cf9X2OBBoMXXw TOU9aLI2xC8vmIhcqtvdx GVmdDsgdmVydGljYWwtYW lyU184RZKblXnjAoDfrXo 3U2UyEdp2VQZw fQejSP4foPGxQFqjLy3rt GdreJytHS6cXJRtwmbhi9 70JkUyg2otSQMaxHZmKTx aOBG0Y33po8A0 BXTbOFThNFV3yBM9kI5gz GlnbjogbGVmdDsgdmVydG naWNwwITidY035EFItuHb nPlBhdGllbnQg FVmxEQk3J4DmUasopOJ+P V15XFQoFX01fFKimCZnl7 imnXa1UiMsJQGlPRV1xRs wFOhbf8LgFDOs A71uoPEno3M6MYHqiTsoy DZgSySiwUB5cS2aNYqczv rsw0pxaxnmTcicn7ktuw2 0uF14I04dMFdg ZHRoPSIzMCUiIHZhbGlnb a3yvF8yTs8+TIIhdJW4lW F7tP5rMAYmZdC0MCmzA76 9InRvcCIvPjxj o7lsw5gfnTc5NmU8JXVqt bVyeJwcCRP9v4ArYr20R9 9sIHdpZHRoPSIyMCUiIHZ fjVehim4jcM5y Ii8+BVWcaIC5oIW6eR0sM tDwXaG1WEnzT983WqGsaP YeYksaK93vV3FiqRD+PHR tZlj0XOBtyRhh PG6ahFEfZAuaQy1pIKA3U nHhGtZqOOnmF6WjSWSozh nakjqqcAB1XJLeJHJrpQ1 3Hw6cmJuaNSLz fSPKdS6rapwyp8wzczmkI yAsNUKoSRl4ANb0NLGnvU mxUvWkJBH9TiG5FWJ0qYH caK3dsUqxgovc hO6tZ0YuAOCjalipJr73z S8bLzCmEzE6YOsiXqm+TU 2CRZxnY8SRTMWIMWZPC6I FNJ29W4FsNvq2 WDMnfVyrUI0fxLMcHKrvW c4asVwwzTsfNV2fZQMhkd tiFZGxyJ9gZDUlgAVdeFk gIV8dAQIsfvuu n595AkJkMWX5JAMuiRNgA 8RyxS7yGmWvEHMzESQmT9 BtzSZzFCelU929AKjsUgY 7TFJqqhWeG6Ib TUUgcPbnKoS6m7H2Kq8aX A6yDl9sWYdhRU82RM08aB Mcg3X2rWH1N2OhSTIqfvx zwxcrzMU7IEHh VQTspN00aTOrAGysUx0rg 8M9t616QZEuUKNcdS54Zm 2jkNhlLWFotLDNoY3yhni ba0wpxqdiTnUw NMCcLBh9GCj5GREntOkiB iXyMFG1LnL9JTY4vRFadV 6fpGsqbrsteA8cOqd+MzM dOLFpbfO3L9Wy Nmq6MFCotAfgFT3utFLrB AaoVc4mkJjwiWdmKV6hED PeywvnTDMloA3zDIYpaVW jgNbeTQ8bUMUt oujwq735KrIcVSW4HDMrj KYyP2IyvE1lJzGaFNDyPU UjY4ZrmFVoQDanA048UOv qSgK8KXOrnpLj T0HpRVOvzNpbYcE4r4U2J t3XLK2LQGR8V6EqPck0IN CydSaqDF5imWDgYYgrId4 sfZxomSlrLY1k CXNdxluuTJYpoK4bSCUsn YOmeRnuYZ0gWUWccosfk1 20FhTuFNB2EOYoxUQaN2R clY8oGaMaMINu JZRrR5MrvZYwWXjtS050Q IwpVpI3QFJpyfHpY1UiYD LipWdsLvC4d9C0Uw5RVLq vdGQ+WE13fz24 F9DrVaaqHko4VHXlPWZ0a OO9qV4oVEJdGHnlb6L7cT A5B3FrleFubq6rx1mxPOT sXZjxS00xmRIu a6J3NNDopTH7PGFlyVwuY oFtyB99Xbx+PGNvbGdyb3 GaKqfvj7efu5afmXl6ExW wJSIgdmFsaWdu ALI4e1YrRt85C70hKJagP HRoPSIzMCUiIHZhbGlnbj 9ayL7pNi5+MFVfcXG2fOX 0bP7eAgYwWbH4 TKbeK517KzZrbOAkWcfds 6bpm1zrbAc6JtQyOQFvit RljMbcKGQ3e7AxGi09X1D ntIegv1PbOul4 zp69zZFwm7K0uLL9B9JdK BDuxxnzcHNepKobLV4wPX BzmwlvWKAucP0eJEPhQ0d 8MdUyKcV8XPjy A9GuliK3IBEuuMZwGAXgp RCJyD7uhodid7ppzimqTk EfSMLxXJi7XBd0IWRtcVg zPrSqTVW7JxE5 FFF3zYDwyX4cxGorrsooh G9wOyc+NDq0s2vqzSXmOE 4jsGV1YU67OZ94qOVdu7W 7tLN4H5ZcWDOr rgjmtccvpPG1EJOyPYMfd F29Ol1sqIuoSy6uOJHtVR W9JHUwuZMwZ6LusD3kHzL mLNVaMGRfB7Kh wJRsCNtdL929UVsiTiE5H KMwrbIyG0ZuIJKxyEllQv I2j4U2Vq9XTJ39NH41EQ4 5hTRse9L2gIW4 B2RyZWXzvscwknvrmMY8B WXsWARiaV53Wr5idQubPv 9xFATySCV1XCGmgOYcY8I hrU6hIjMjMCKm FRUjP7XpxZSfPCylK668W JvsPjJ9UIYpytFaX9QcBD EupAfpBnG3k6M7Ho8YDp3 0DS52DE06jKGo c5P6vGK2G2FoYDMkdjnjt jtgwVE5EMLbGBYamK21Fy 1yxCxzIt1pUFCiOSO9QRD uiCXcJ5YcoN5w WhCqTTNkZSXmG3BpbXHdC IbeY074YNxrZkH4IJXygq GoE6FnILMooFwbHiB2g6C 9Bv7TWGynunk1 R1IzAxpqiTD+EO21VHEjT T95bZQpbPIgb5wywMk0Ts OgLIDyURS8oNbrKYdvt7G fFJHpV84aqOMe c2U (more content not included)... [facility] Provider Orderson 03-20-2025 Provider Orders [id number]#1. [id number] [facility] C Urineon 03-18-2025 C Urine >100,000 cfu/ml [...] <=2 Verified Tri/Sulf S <=2/38 Verified Normal [facility] Comment on above: Performed By: #### 6 [id number] #### [facility] (DEFAULT) [address] [place] [address] Provider Orderson 03-16-2025 Provider Orders [id number]#1. 00OTGTIFF Normal [facility] Cult,Bloodon 02-01-2025 Cult,Blood Specimen Description .BLOOD Special Requests Culture NO GROWTH 5 DAYS Report Status FINAL 02/01/2025 [facility] Comment on above: Performed By: #### B C #### [place] [id number] Social Work Lecturer: Alejandro Salazar MD Cult,Blood Specimen Description .BLOOD Special Requests RIGHT HAND 1ML Culture NO GROWTH 5 DAYS Report Status FINAL 02/01/2025 [facility] Comment on above: Performed By: #### B C #### [address] [address] Social Work Lecturer: Alejandro Salazar MD Coding Summaryon 01-30-2025 Coding Summary HTMLBase 64 WnufhbckUPp7jRl+PGhlY WQ+WC6FMZAjQ25klRCguC 4bV4JNUWcAXgtnLWGOPSa TEpWqbwUfSB9ubYJrRQNy IC8+YG7bKCJzCwbpkONea 1M6kVV2S32uwm7fSJobdX U2RSUmDyFqwuqbx7ayeGf 6IDcuNmluOyBt CYJbtP27EPE6hY88Zz84u ANnaCVbk9qnfDd2BoHhDD BdYBG5zHiiIXwhw0ZzBWC vT18fgXFtw7Z6 UMXgcNwqiYOxCwWtiMK2t F7xKNxbwfdxh0xafqtzCy e0is63bWGui4C9kKT6Q4J nasT8PHXqdMVb DpqgfUIEeR5jtwlyb2nsy zvjFcOnSRWjRFb6LQa4UA BrzPzcIlVwSA41RCO2HIW mlpApB0MhKBJp nSozSiN7j8V3Kb2RR6PPP pqeX5TDVTGDTOhoaJV+PC 98ig55G0GmQpwxSdb8ICZ uHAW2xEC1tD2y IEIgCXrmr5J8lBX7L0Dqo iDfup2qb4xdDCKlYTwfE2 7bsCBky8H5OVEpeIP4TWI aiXpdXzMraJ17 Oyc+JMQvvYfaj2SjKgywm 2nlf4blnNe4IrksSJRfny BkyLebNAQ2l9PjYe0dIVS zdAG1hYB6gA0z VnBeQyL6GZfmH182BlHep PSgVbglU87aL5XlnSX+PH WpOpy7YZQgpSypCC5gO6T hZGRpbmctbGVm aJhfZL2wGGNsbywaOSItf P0tHLWuP9z7AdKlEqB4GT keA2RwCGYpbbrhHq08tC1 jQhWeEiE9YGqv O5RrltH1KBNhhJUgGXhfU UE6G45mj6O2YLDwWRWcXJ P6kQM7dX1otDxxhqekqDG mdDsgdmVydGlj CNdiRObjN394DTLekHulV kNvZGluZyBEYXRlOiAgMD QvMTQvMjAyNTwvdGQ+PHR aLWE3yUvvORKs qUSfEFnaAt0rmCxgaTjeP V8qMCPddqzdAPInjD3pFL FcjNSnaWvrUW7fFGQykku uf551IsFuUUW0 HXZicYQmG6GyeI3tIiAoJ IMdDIYzO7CrdBYbCZsqK5 19BWwfSoX4UXPrakUpR0O sLWFsaWduOiB0 x3R2Qn2Sr6TtekzeO7Krt LYnQjIrHzswDRs8N8UwKx wvdHI+MX71KBWpAU06NVw 0CKF6jMgpTAme OBCyC9GcfG8zIvRvQMDyP GRkOyc+PHRhYmxlIHdpZH RoPScxMDAlJyBzdHlsZT0 cUr5pOHWkCTMj eMjhmISdAkVzn9kwLRRtU IciKG2biCvjJ1IixBI1CT Neh2t0Js86R62cK3GjvBB +QCQrwZJ7zAU9 lN5cQcIvJyZ9YJryC266A nXvhOStUvzvo8onk5vbtX e8OvM6ETKjnhJasOzyZHT 9c5HjWm57S07u IHdpZHRoPSIxNSUiIHZhb Gtaey7fqO6xJr3+PGNvbC W8kBF2eA3qZyDqYrE6TPa tL411OmPbaHYj Lcxkx1vbk6kdcDb7GaUqN DMuffYhcPnkFPP1m6OnLz 48S0AfeDjnp5GsJpw6oq4 3pHDfi1A5kNI7 Z5CcYMYxmgkjwFEnpBqyM T3cPJYyoweuXRHxaD3cIW QbE2x0NePiOzH8UAwdL7X cdmL4HAWzaTZu SZXqgYHJbL5wmmscw7yzm qihUjCsWNTnTGb7GUj7DD TmwDfmFqZlMCV4GlN6BJD 6xJJjfU1rnEmk gcbuaP7jFxu+GPE7hZCtk RQIOJ8kJjmrbXS+PHRkIH X7pLmyZSegUMPicO8tSQO yA0y5DtSjFxS3 LHizS1BjjiR8LSTrqTApE GEnrHWRbO5riazfb6seir aiMdPpTCHwNHq7LBy9QXJ saWduOiBsZWZ0 HfH7PVN0mLBncW0ayAfab xqetE7eTuh+QmlydGggRG S2KAy0R0XjOek9GNYgzJq xYB6wxVJvJLwk Gd6cjOwhpNdcUF2iGFIrx nebp894NgWbi3nsTGCpzQ LbHUacPJU1B40ku5B7CUO vESTnYJK2yQK7 lG2noXarhzhpeDEdlDzts eWxiWuwUKejNPssA177HA HhdOrpEpGpFCb6N8VmZik 3KENswDnhDS7r jKQsNNfvCw5bpSliqTbhW I0eCNXzbzoyj207GuRvd6 coROAytTWfFPqzRCW1H85 tx0W7TZWkZPXv MSI3oYP1hN4fvSkzrxfww GVmdDsgdmVydGljYWwtYW ryT330IOIclOkdMxTxxXn 2H9FnGyh6GDLy rVcoWA5ecCGgHQxaPu3bp SydzNhjDJ7zFRMdxdfwn6 77IyAcg1ukBQXstZZtVHw dVCV4B62tn3Q8 TVWtDLKzGNS6jCK2xO4yk GlnbjogbGVmdDsgdmVydG agCYgqKYjfI699HYUfuIp nPlBhdGllbnQg TVihIHx7J5VbJhgriUX+P H17OHTgGF26yHNtdLKob4 yxhRy2HsYeOJGpKDO4vFv yVUkmk2OhHMDn U75ilOXiz6J3GQYjeEweo FPwWeHpsNL6qY8cFNyftf rsg8bmqwskSckax8dgfq2 6hO85L03kAKgd ZHRoPSIzMCUiIHZhbGlnb r4tpK1eEs7+LQIkrVB8nO V8vJ5xCKVjIvO5RIwxS68 9InRvcCIvPjxj f0suk5pefQe3DlO6IXGuc fIqnPowNRN3b9IqFk81M3 9sIHdpZHRoPSIyMCUiIHZ bvGgmru3hlK3k Ii8+AGCbpGE6eBP1mI5eL oCvTlU0WNjvJ504QwWtfH PtCmeyR67pH2FavWV+PHR eToi7VRKfkLac TT0raUVvPUjtVl5bHRF3F tLfPhDiCXotM4PtZJJqdy oewoagzXE4ZYElJYVazQ2 8Im2yuMegXIFj gRDXrI0jzdmty4ymcxntC qNfFHElUEx3LJt2LKDivT ssRnOhUIF6KcM2CQM6jPG blO7ugPconvqh aO0jY9DcSLNsdgkfUk06a P3sJaGvJgJ0KFwxDnx+TU 1TIIroJ4FCOJBIYJEHE0J GMJ12N0DfDmx0 UIKbvJtwSP8ydQTwEUvnM f7hlDtqhPocFJ3cHZRyfs nfFWUrqP5cXJIjhEAuxBv qSY8jVAWezevg d943KwJhSXS0AZKhxAZcD 5BpqX6oUlUgIGQsJMVuV9 TcqGLaWBhuT415OKuaVoN 0AWNytfStH4Is MOGfxRrcVgW6d3E1Yw9mT Q3xLo8oMHvtPV07LW42iF Dur2O6sXQ6A1ZmRNMryer hgsgsiGL6MVLr YMXqjF95hGJmQZlvHp4fi 4X4i536YMGcQTHdrE28Wm 4fnZpvRQYnuCWQgM2muri ds9vmhrchXgQi ZCVxHMu5AYw5IMNscVklP pSbDWW3YoZ5RSJ7hRJdtM 0zkGivafvrmC5sMns+MzM rVVQnhaR6G4Cj Iml0GOOjmVfvYV1vkQJgS BqeUb2kiZvqgLjqNH7pLR DtjuxlDPRjvF5dRPTycNS idBlnYY4wVLBw midry463WrJdDRW0QLBne IPkM9SkmS3jNdSiDGIgAF HjW9PceXRyDUefR903OEy zUgW6XJSizaTt S3JhCVYoiUnrZqX9q5A4M v5CDL9MMPW2H2BrJvj3GG UfxUxlRW1niCXtHUokUp2 yhIrwoKwvBW0u WBItovodDWGepE6uDUYbf ZHkwVusJI1rGSCpdxgtq4 81NsMnOGY0UYUofGDzX0N uaX9uKmDkVSYp FANiF8NazVItVMrjS425Z DrgVhE5WAXxvlJoK8YbGO RiuUhfTmS3i9S5Qm2TiEN hU4OfW9a2K4Gd PjwvdHI+DO74FARlKC09o QWxkTNbw4cpcCq6CcLtYP PgZRM1wCtsENpcl2JgRTW lT87djGJnf2D8 ZIYdnPhonCKyKfWztPL1i B4wMCewxleqs4ymgjzdCg dqj9txqt49aA80P81oLQb pZHRoPSIzMCUi GGSrnShnsx8xaQ1uTg1+P YKfsUM0xBT2tG9qOtEfXn S5RDasN279EoHdhJFqDit qr9ogr2zigRo3 GmVeNSAudcKmbSdgNZO5u 6TjZm13U39vUMcrRICxYQ GmBDStHCRerLgfcz0dsP7 wIi8+MX5im6jx pt67vT12bUO+CKXvEDN2o JmzBRjvZRTcdO8dLEyxTn Z8PUDnWqAivB96oJMfJCv lJy4adKsgtFsk UB1oFMCdohxob626JjEfu 5mfRPGutUNjKEpbLEA7F8 0pu0L4LTGkVJHvDOW7oEF 5mS3baQxpgodk bGVmdDsgdmVydGljYWwtY ItwD169YHTwcBfiJrNlmB CxE9ofizZYYX5sOzjqnQU +KEPnSTM4hFtf QEwyTXPauQ4kVMAgP3c3N gAjFvD1VLlsS8CmnuQ9SP SicYXwVOHcoDONfI6bplc wc8qypalgTnVi ZFGcZEn4EAz4VBQgrOfvZ zMnVPH9MbJ6KXP6yWXepT 5eqLaylticjC0zGcd+Rkl OOjwvdGQ+PHRk REN9uUwqZOqtHKZvmU7rG DOjF2u2LhHaPwR7NXalU2 RqcqX9WYHknONyAMUpdCK SpZ7uusvts5yt snctMaNkPYAqWGx5JKh0Y DQjaPjpXcTuBCB7WrA6VW O4pYEikI8xiRqwcgiodC6 wOyc+TVJOOjwv dGQ+NHVgSQY7rValQBybV FSfmC3nWFNsV0c6CjFiUq X1YSyaJ8WiteB9SHKraVO sSGNppWCDhI6r ubdog3elwcpjWfFnIREuS Yk5FHi0IMQbmQtbKuGuLC M7FeC2GDV2aBBoeW9mnVi vifmwrI4dQhn+ KBQ6ZCG9JH27WN80Z0XhU jwvdGFibGU+PHRhYmxlIH dpZHRoPScxMDAlJyBzdHl fFV9xWk2dNEWq LWN (more content not included)... Normal [facility] C Urineon 01-28-2025 C Urine Urine Culture ordere d as a result of parameters set on specific urine dip and urine microsopic results. Mixed skin, or urogenital daiana. Clinically insignificant [facility] [place] Comment on above: Performed By: #### [id number], [id number], [id number] #### [facility] (DEFAULT) [address] [place] [address] Cult,Urineon 01-28-2025 Cult,Urine Specimen Description .BLADDER URINE FROM CYSTOSCOPY Special Requests Site: Urine Culture NO GROWTH Report Status FINAL 01/28/2025 Normal [facility] Comment on above: Performed By: #### B MP #### [address] [address] Social Work Lecturer: Alejandro Salazar MD Culture, Urineon 01-28-2025 Microorganism identified Cx Nom (Unsp spec) NO GROWTH [facility] Service comment (Unsp spec) [Interp] Site: Urine [facility] Specimen Description .BLADDER URINE FROM CYSTOSCOPY [facility] Basic Metabolic Profon 01-27 Anion gap [Moles/Vol] 9 mmol/L Normal 9-16 [facility] Comment on above: Performed By: #### B MP #### [address] [address] Social Work Lecturer: Alejandro Salazar MD Calcium [Mass/Vol] 8.3 mg/dL Low 8.6-10.4 [facility] Comment on above: Performed By: #### B MP #### [facility] [employer] [address] [place] [address] Social Work Lecturer: Alejandro Salazar MD Chloride [Moles/Vol] 108 mmol/L High 98-107 [facility] Comment on above: Performed By: #### B MP #### [facility] [employer] [address] [place] [address] Social Work Lecturer: Alejandro Salazar MD CO2 [Moles/Vol] 22 mmol/L Normal 20-31 [facility] Comment on above: Performed By: #### B MP #### [facility] [employer] [address] [place] [address] Social Work Lecturer: Alejandro Salazar MD Creatinine [Mass/Vol] 0.7 mg/dL Normal 0.6-0.9 [facility] Comment on above: Performed By: #### B MP #### [address] [address] Social Work Lecturer: Alejandro Salazar MD GFR/1.73 sq M.predicted among [...] secretion. Performed By: #### B MP #### [facility] [employer] [address] [place] [address] Social Work Lecturer: Alejandro Salazar MD Glucose [Mass/Vol] 85 mg/dL Normal 74-99 [facility] Comment on above: Performed By: #### B MP #### [address] [address] Social Work Lecturer: Alejandro Salazar MD Potassium [Moles/Vol] 3.9 mmol/L Normal 3.7-5.3 [facility] Comment on above: Performed By: #### B MP #### [facility] [employer] [address] [place] [address] Social Work Lecturer: Alejandro Salazar MD Sodium [Moles/Vol] 139 mmol/L Normal 136-145 [facility] Comment on above: Performed By: #### B MP #### [facility] [employer] [address] [place] [address] Social Work Lecturer: Alejandro Salazar MD Urea nitrogen [Mass/Vol] 11 mg/dL Normal 6-20 [facility] Comment on above: Performed By: #### B #### [facility] [employer] [address] [place] [address] Social Work Lecturer: Alejandro Salazar MD Basic metabolic panelon 01-17 [...] - 0.9 mg/dL [facility] Transfluent Est, Glohayley Lundt Rate - PINF [facility] Comment on above: These [...] 11 mg/dL 6 - 20 mg/dL [facility] CBC auto differentialon 01-17 Basophils (Bld) [...] Campus WBC other (Bld) [#/Vol] 3.9 [facility] CBC with Diffon 01-27-2025 Abs. Basophil 0.04 k/uL Normal 0.00-0.20 [facility] Comment on above: Performed By: #### B MP #### [address] [address] Social Work Lecturer: Alejandro Salazar MD Abs.Imm.Granulocyte <0.03 Normal 0.00-0.30 [facility] Comment on above: Performed By: #### B MP #### [place] [address] Social Work Lecturer: Alejandro Salazar MD Abs.Neutrophil (Seg) 1.21 k/uL Low 1.50-8.10 [facility] Comment on above: Performed By: #### B MP #### [place] [address] Social Work Lecturer: Alejandro Salazar MD Basophils/100 WBC (Bld) 1 % Normal 0-2 [facility] Comment on above: Performed By: #### B MP #### [place] [address] Social Work Lecturer: Alejandro Salazar MD Eosinophils (Bld) [#/Vol] 0.14 10*3/uL Normal 0.00-0.44 [facility] Comment on above: Performed By: #### B MP #### [address] [address] Social Work Lecturer: Alejandro Salazar MD Eosinophils/100 WBC (Bld) 4 % Normal 1-4 [facility] Comment on above: Performed By: #### B MP #### [address] [address] Social Work Lecturer: Alejandro Salazar MD Erythrocyte distribution width (RBC) [Ratio] 12.6 % Normal 11.8-14.4 [facility] Comment on above: Performed By: #### B MP #### [address] [address] Social Work Lecturer: Alejandro Salazar MD Hematocrit (Bld) [Volume fraction] 34.2 % Low 36.3-47.1 [facility] Comment on above: Performed By: #### B MP #### [address] [address] Social Work Lecturer: Alejandro Salazar MD Hemoglobin (Bld) [Mass/Vol] 10.7 g/dL Low 11.9-15.1 [facility] Comment on above: Performed By: #### B MP #### [address] [address] Social Work Lecturer: Alejandro Salazar MD Immature granulocytes/100 WBC (Bld) 0 % Normal 0 [facility] Comment on above: Performed By: #### B MP #### [address] [address] Social Work Lecturer: Alejandro Salazar MD Lymphocytes (Bld) [#/Vol] 2.11 10*3/uL Normal 1.10-3.70 [facility] Comment on above: Performed By: #### B MP #### [address] [address] Social Work Lecturer: Alejandro Salazar MD Lymphocytes/100 WBC (Bld) 55 % High 24-43 [facility] Comment on above: Performed By: #### B MP #### [address] [address] Social Work Lecturer: Alejandro Salazar MD MCH (RBC) [Entitic mass] 27.1 pg Normal 25.2-33.5 [facility] Comment on above: Performed By: #### B MP #### [address] [address] Social Work Lecturer: Alejandro Salazar MD MCHC (RBC) [Mass/Vol] 31.3 g/dL Normal 28.4-34.8 [facility] Comment on above: Performed By: #### B MP #### [address] [address] Social Work Lecturer: Alejandro Salazar MD MCV (RBC) [Entitic vol] 86.6 fL Normal 82.6-102.9 [facility] Comment on above: Performed By: #### B MP #### [address] [address] Social Work Lecturer: Alejandro Salazar MD Monocytes (Bld) [#/Vol] 0.35 10*3/uL Normal 0.10-1.20 [facility] Comment on above: Performed By: #### B MP #### [address] [address] Social Work Lecturer: Alejandro Salazar MD Monocytes/100 WBC (Bld) 9 % Normal 3-12 [facility] Comment on above: Performed By: #### B MP #### [address] [address] Social Work Lecturer: Alejandro Salazar MD Neutrophil (Seg) 31 % Low 36-65 [facility] Comment on above: Performed By: #### B MP #### [address] [address] Social Work Lecturer: Alejandro Salazar MD NRBC Automated 0.0 per 100 WBC Normal 0.0 [facility] Comment on above: Performed By: #### B MP #### [address] [address] Social Work Lecturer: Alejandro Salazar MD Platelet mean volume (Bld) [Entitic vol] 9.1 fL Normal 8.1-13.5 [facility] Comment on above: Performed By: #### B MP #### [facility] [place] [address] Social Work Lecturer: Alejandro Salazar MD Platelets (Bld) [#/Vol] 238 10*3/uL Normal 138-453 [facility] Comment on above: Performed By: #### B MP #### [facility] [address] [place] [address] Social Work Lecturer: Alejandro Salazar MD RBC (Bld) [#/Vol] 3.95 10*6/uL Normal 3.95-5.11 [facility] Comment on above: Performed By: #### B MP #### [facility] [address] [place] [address] Social Work Lecturer: Alejandro Salazar MD WBC (Bld) [#/Vol] 3.9 10*3/uL Normal 3.5-11.3 [facility] Comment on above: Performed By: #### B MP #### [facility] [employer] [address] [place] [address] Social Work Lecturer: Alejandro Salazar MD Consent Formson 01-27-2025 Consent Forms [id number] [facility] Cult,Urineon 01-27-2025 Cult,Urine Specimen Description .URINE Culture NO SIGNIFICANT GROWTH Report Status FINAL 01/27/2025 Normal [facility] Comment on above: Performed By: #### B MP #### [facility] [employer] [address] [place] [address] 13905 Social Work Lecturer: Alejandro Salazar MD Culture, Urineon 01-27-2025 Microorganism identified Cx Nom (Unsp spec) NO SIGNIFICANT GROWTH [facility] .[facility]INE [facility] FLUORO FOR SURGICAL PROCEDUR ESon 01-27-2025 FLUORO FOR SURGICAL PROCEDURES Radiology exam is complete. No Radiologist dictation. Please follow up with ordering provider. Final result Normal [facility] Guidance-- during surgeryon 01-27-2025 Radiology exam is complete. No Radiologist dictation. Please follow up with ordering provider. MHPN RIS CONSOLIDATED .Auto Diff 1on 01-26-2025 Auto [place] % 10 % Normal 1-12 [facility] Comment on above: Performed By: #### 7 238249, [id number], [id number], 60962138, [id number] #### [facility] (DEFAULT) [address] [place] [address] 63194 Baso Abs# 0.0 x10 Normal 0.0-0.2 [facility] Comment on above: Performed By: #### 7 811035, [id number], 7408207421, 97850702, 296716401 #### [facility] (DEFAULT) [address] [place] [address] 99916 Basophils/100 WBC (Bld) 0.7 % Normal 0.2-2.0 [facility] Comment on above: Performed By: #### 7 198529, [id number], 4220432787, 61651948, 794214183 #### [facility] (DEFAULT) [address] [place] [address] 95087 Eos Abs# 0.1 x10 Normal 0.0-0.4 [facility] Comment on above: Performed By: #### 7 373524, 5736964192, 7774469190, 57251717, 967100739 #### [facility] (DEFAULT) [address] [place] [address] 12935 Eosinophils/100 WBC (Bld) 2.4 % Normal 0.9-4.0 [facility] Comment on above: Performed By: #### 7 484889, 1349177296, 8817728052, 18840458, 897072385 #### [facility] (DEFAULT) [address] [place] [address] 76484 Lymph Abs# 1.8 x10 Normal 1.3-2.9 [facility] Comment on above: Performed By: #### 7 640659, 2976543992, 7924746973, 07484708, 591590228 #### [facility] (DEFAULT) [address] [place] [address] 17465 Lymphocytes/100 WBC (Bld) 38 % Normal 14-48 [facility] Comment on above: Performed By: #### 7 224602, 9610898620, 8993036396, 16638063, 039161370 #### [facility] (DEFAULT) [address] [place] [address] 88752 [place] Abs# 0.5 x10 Normal 0.0-0.8 [facility] Comment on above: Performed By: #### 7 744544, 0261012220, 2642968832, 18693144, 761614649 #### [facility] (DEFAULT) [address] [place] [address] Neut Abs# 2.4 x10 Normal 1.5-9.2 [facility] Comment on above: Performed By: #### 7 089938, 4691623047, 8845738265, 21931155, 413904825 #### [facility] (DEFAULT) [address] [place] [address] 92581 Neutrophils/100 WBC (Bld) 49 % Normal 44-88 [facility] Comment on above: Performed By: #### 7 143196, 0883716077, 2715931255, 62874779, 352460134 #### [facility] (DEFAULT) [address] [place] [address] 21518 Basic Metabolic Panelon 04-1 0 Anion gap [...] Est, Glom Filt Rate 87 - PINF [facility] Comment on above: These [...] 12 mg/dL 6 - 20 mg/dL [facility] Basic Metabolic Profon 01-26 Anion gap [Moles/Vol] 12 mmol/L Normal 9-16 [facility] Comment on above: Performed By: #### B MP #### [facility] [employer] [address] [place] [address] 45285 Social Work Lecturer: Alejandro Salazar MD Calcium [Mass/Vol] 8.6 mg/dL Normal 8.6-10.4 [facility] Comment on above: Performed By: #### B MP #### [facility] [employer] [facility] [address] [place] [address] 68372 Social Work Lecturer: Alejandro Salazar MD Chloride [Moles/Vol] 106 mmol/L Normal 98-107 [facility] Comment on above: Performed By: #### B MP #### [facility] [employer] [facility] [address] [place] [address] 95007 Social Work Lecturer: Alejandro Salazar MD CO2 [Moles/Vol] 21 mmol/L Normal 20-31 [facility] Comment on above: Performed By: #### B MP #### [facility] [address] [place] [address] [id number] Social Work Lecturer: Alejandro Salazar MD Creatinine [Mass/Vol] 0.9 mg/dL Normal 0.6-0.9 [facility] Comment on above: Performed By: #### B MP #### [facility] [employer] [facility] [address] [place] [address] 61105 Social Work Lecturer: Alejandro Salazar MD GFR/1.73 sq M.predicted among [...] secretion. Performed By: #### B MP #### [facility] [employer] [facility] [address] [place] [address] 95959 Social Work Lecturer: Alejandro Salazar MD Glucose [Mass/Vol] 126 mg/dL High 74-99 [facility] Comment on above: Performed By: #### B MP #### [address] [address] Social Work Lecturer: Alejandro Salazar MD Potassium [Moles/Vol] 3.7 mmol/L Normal 3.7-5.3 [facility] Comment on above: Performed By: #### B MP #### [facility] [employer] [facility] [address] [place] [address] 17517 Social Work Lecturer: Alejandro Salazar MD Sodium [Moles/Vol] 139 mmol/L Normal 136-145 [facility] Comment on above: Performed By: #### B MP #### [address] [address] Social Work Lecturer: Alejandro Salazar MD Urea nitrogen [Mass/Vol] 12 mg/dL Normal 6-20 [facility] Comment on above: Performed By: #### B MP #### [facility] [address] [place] [address] Social Work Lecturer: Alejandro Salazar MD [facility] 01-26-2025 Erythrocyte distribution width (RBC) [Ratio] [...] Campus WBC other (Bld) [#/Vol] 5.9 [facility] Erythrocyte distribution width (RBC) [Ratio] 12.7 % Normal 11.8-14.4 [facility] Comment on above: Performed By: #### B MP #### [facility] [address] [place] [address] Social Work Lecturer: Alejandro Salazar MD Hematocrit (Bld) [Volume fraction] 38.1 % Normal 36.3-47.1 [facility] Comment on above: Performed By: #### B MP #### [facility] [address] [place] [address]6052 Social Work Lecturer: Alejandro Salazar MD Hemoglobin (Bld) [Mass/Vol] 12.0 g/dL Normal 11.9-15.1 [facility] Comment on above: Performed By: #### B MP #### [address] [address] Social Work Lecturer: Alejandro Salazar MD MCH (RBC) [Entitic mass] 27.9 pg Normal 25.2-33.5 [facility] Comment on above: Performed By: #### B MP #### [address] [address] Social Work Lecturer: Alejandro Salazar MD MCHC (RBC) [Mass/Vol] 31.5 g/dL Normal 28.4-34.8 [facility] Comment on above: Performed By: #### B MP #### [address] [address] Social Work Lecturer: Alejandro Salazar MD MCV (RBC) [Entitic vol] 88.6 fL Normal 82.6-102.9 [facility] Comment on above: Performed By: #### B MP #### [address] [address] Social Work Lecturer: Alejandro Salazar MD NRBC Automated 0.0 per 100 WBC Normal 0.0 [facility] Comment on above: Performed By: #### B MP #### [address] [address] Social Work Lecturer: Alejandro Salazar MD Platelet mean volume (Bld) [Entitic vol] 9.0 fL Normal 8.1-13.5 [facility] Comment on above: Performed By: #### B MP #### [address] [address] Social Work Lecturer: Alejandro Salazar MD Platelets (Bld) [#/Vol] 261 10*3/uL Normal 138-453 [facility] Comment on above: Performed By: #### B MP #### [address] [address] Social Work Lecturer: Alejandro Salazar MD RBC (Bld) [#/Vol] 4.30 10*6/uL Normal 3.95-5.11 [facility] Comment on above: Performed By: #### B MP #### [address] [address] Social Work Lecturer: Alejandro Salazar MD WBC (Bld) [#/Vol] 5.9 10*3/uL Normal 3.5-11.3 [facility] Comment on above: Performed By: #### B MP #### [address] [address] Social Work Lecturer: Alejandro Salazar MD CBC w/ Auto Diffon Erythrocyte distribution width (RBC) [Ratio] 13.6 % Normal 11.5-15.0 [facility] Comment on above: Performed By: #### 7 432223, 7381814242, 0539275665, 13149092, 546034046 #### [facility] (DEFAULT) [address] [place] [address] 88243 Hematocrit (Bld) [Volume fraction] 37.0 % Normal 33.7-40.4 [facility] Comment on above: Performed By: #### 7 918102, 7185548920, 0219817092, 11241250, 521150134 #### [facility] (DEFAULT) [address] [place] [address] 19426 Hemoglobin (Bld) [Mass/Vol] 12.7 g/dL Normal 11.3-15.9 [facility] Comment on above: Performed By: #### 7 587877, 3957657633, 5250533629, 17348018, 111840151 #### [facility] (DEFAULT) [address] [place] [address] 58990 Man Diff? Auto Invalid Interpretation Code [facility] Comment on above: Performed By: #### 7 967239, 3785535299, 2103709425, 03491050, 183736080 #### [facility] (DEFAULT) [address] [place] [address] MCH (RBC) [Entitic mass] 29 pg Normal 24-34 [facility] Comment on above: Performed By: #### 7 131191, 8651537353, 4426158936, 17998621, 012153497 #### [facility] (DEFAULT) [address] [place] [address] MCHC (RBC) [Mass/Vol] 34 g/dL Normal 26-37 [facility] Comment on above: Performed By: #### 7 684465, 7720532842, 3490029158, 71864415, 764464767 #### [facility] (DEFAULT) [address] [place] [address] MCV (RBC) [Entitic vol] 84 fL Normal 81-100 [facility] Comment on above: Performed By: #### 7 988199, 9630088184, 4859697452, 72096221, 643847872 #### [facility] (DEFAULT) [address] [place] [address] Platelet 287 x10 Normal 138-427 [facility] Comment on above: Performed By: #### 7 991314, 2926125943, 6929269067, 52228715, 702427703 #### [facility] (DEFAULT) [address] [place] [address] Platelet mean volume (Bld) [Entitic vol] 7.3 fL Normal 6.3-10.2 [facility] Comment on above: Performed By: #### 7 230804, 2388761563, 0944876178, 93388286, 702215717 #### [facility] (DEFAULT) [address] [place] [address] RBC 4.39 x10 Normal 3.70-5.30 [facility] Comment on above: Performed By: #### 7 752700, 0387572961, 0166092794, 57652392, 230738274 #### [facility] (DEFAULT) [address] [place] [address] WBC 4.8 x10 Normal 3.5-10.5 [facility] Comment on above: Performed By: #### 7 661208, 3677172734, 6353964680, 63470387, 246749885 #### [facility] (DEFAULT) [address] [place] [address] CMP Standardon 01-26-2025 eGFR Non AA >60 Invalid Interpretation Code [facility] Comment on above: Performed By: #### 7 074440, 7424457989, 6535682346, 42139451, 697964573 #### [facility] (DEFAULT) [address] [place] [address] eGFR AA >60 Invalid Interpretation Code [facility] Comment on above: Performed By: #### 7 439579, 5405626760, 4440924022, 24132038, 351468427 #### [facility] (DEFAULT) [address] [place] [address] Albumin [Mass/Vol] 3.7 g/dL Normal 3.5-5.0 [facility] Comment on above: Performed By: #### 7 774701, 3132563628, 1826130972, 47777491, 571880990 #### [facility] (DEFAULT) [address] [place] [address] Albumin/Globulin [Mass ratio] 1.0 {ratio} Low 1.4-2.6 [facility] Comment on above: Performed By: #### 7 893046, 6779315535, 3364124466, 85797329, 563969688 #### [facility] (DEFAULT) [address] [place] [address] Alk Phos 70 IU/L Normal 32-91 [facility] Comment on above: Performed By: #### 7 264490, 8471804618, 9858912960, 81250484, 944369461 #### [facility] (DEFAULT) [address] [place] [address] ALT [Catalytic activity/Vol] 75.0 U/L High 14.0-54.0 [facility] Comment on above: Performed By: #### 7 131226, 1633223393, 6983012310, 21766657, 682171696 #### [facility] (DEFAULT) [address] [place] [address] 72222 AST [Catalytic activity/Vol] 27 U/L Normal 15-41 [facility] Comment on above: Performed By: #### 7 875082, 5643092101, 2387160497, 15968734, 228023009 #### [facility] (DEFAULT) [address] [place] [address] 35409 Bili Total 0.7 mg/dL Normal 0.3-1.2 [facility] Comment on above: Performed By: #### 7 061143, 1691624310, 0774619704, 40533351, 039340453 #### [facility] (DEFAULT) [address] [place] [address] 03076 Creatinine [Mass/Vol] 0.94 mg/dL Normal 0.60-1.30 [facility] Comment on above: Performed By: #### 7 781081, 7966528186, 6980396288, 47448313, 990644057 #### [facility] (DEFAULT) [address] [place] [address] 23210 Globulin (S) [Mass/Vol] 3.5 g/dL Normal 1.5-4.3 [facility] Comment on above: Performed By: #### 7 764812, 6614660882, 9004570120, 13278322, 981821876 #### [facility] (DEFAULT) [address] [place] [address] 98066 Osmolality 277 mOsm/L Invalid Interpretation Code [facility] Comment on above: Performed By: #### 7 806173, 5730731502, 7129718431, 67346848, 823375023 #### [facility] (DEFAULT) [address] [place] [address] 24587 Protein [Mass/Vol] 7.2 g/dL Normal 6.5-8.1 [facility] Comment on above: Performed By: #### 7 662893, 2448369922, 1583779093, 87243770, 407678799 #### [facility] (DEFAULT) [address] [place] [address] 51623 Urea nitrogen [Mass/Vol] 13 mg/dL Normal 8-26 [facility] Comment on above: Performed By: #### 7 217008, 8201990328, 3310283630, 03395503, 864202093 #### [facility] (DEFAULT) [address] [place] [address] 03418 Urea nitrogen/Creatinine [Mass ratio] 13.8 mg/mg Normal 4.6-16.2 [facility] Comment on above: Performed By: #### 7 078896, 5902590561, 8513433726, 59158351, 152519280 #### [facility] (DEFAULT) [address] [place] [address] 35343 Anion gap [Moles/Vol] 13.6 mmol/L Normal 5.0-19.0 [facility] Comment on above: Performed By: #### 7 596179, 2111574704, 6969648354, 43417733, 061496459 #### [facility] (DEFAULT) [address] [place] [address] 38006 Calcium [Mass/Vol] 9.4 mg/dL Normal 8.9-10.3 [facility] Comment on above: Performed By: #### 7 670105, 7930273879, 4660777906, 62465493, 597610229 #### [facility] (DEFAULT) [address] [place] [address] 33687 Chloride [Moles/Vol] 104 mmol/L Normal 101-111 [facility] Comment on above: Performed By: #### 7 772620, 1824072599, 7525826104, 50735200, 245650806 #### [facility] (DEFAULT) [address] [place] [address] 50442 CO2 [Moles/Vol] 25 mmol/L Normal 21-32 [facility] Comment on above: Performed By: #### 7 385427, 1084187689, 8748394796, 29232198, 753324488 #### [facility] (DEFAULT) [address] [place] [address] 82154 Glucose [Mass/Vol] 93.0 mg/dL Normal 74.0-118.0 [facility] Comment on above: Performed By: #### 7 459655, 8812234790, 3313535533, 08668509, 025828064 #### [facility] (DEFAULT) [address] [place] [address] 43098 Potassium [Moles/Vol] 3.6 mmol/L Normal 3.6-5.1 [facility] Comment on above: Performed By: #### 7 494171, 8195377929, 4815526367, 30980442, 109258193 #### [facility] (DEFAULT) [address] [place] [address] 21983 Sodium [Moles/Vol] 139.0 mmol/L Normal 136.0-144.0 [facility] Comment on above: Performed By: #### 7 900178, 3719763929, 3938814956, 48332789, 530332908 #### [facility] (DEFAULT) [address] [place] [address] Abdomen/Pelvis w/o Contra ston 01-26-2025 CT [...] MD 01/26/25 2:00 pm Technologist: Boogie COLE [facility] ED Note-Nursingon 01-26-2025 ED Note-Nursing Pt stated she was seen in [facility] recently and Dr. Plata is requesting records. Menswear Salesperson called [facility] to get records faxed. Stated they would be faxing results over. [facility] Extra Blueon 01-26-2025 Tube Collected Yes Invalid Interpretation Code [facility] Comment on above: Performed By: #### 7 739983, 9304483815, 0802886516, 65338761, 043287699 #### [facility] (DEFAULT) [address] [place] [address] Microscopic Urinalysison Bacteria LM Ql (Urine sed) None None [facility] Casts LM.LPF (Urine sed) [#/Area] 2 TO 5 HYALINE Reference range defined for non-centrifuged specimen. [facility] Epithelial cells LM.HPF (Urine sed) [#/Area] 2 TO 5 [facility] RBC LM.HPF (Urine sed) [#/Area] TOO NUMEROUS TO COUNT [facility] Comment on above: Reference range defi salty for non-centrifuged specimen. WBC LM.HPF (Urine sed) [#/Area] 20 TO 50 [facility] Test Serum 1on Preg Serum Internal Control OK [facility] Comment on above: Performed By: #### 7 173371, 5409009824, 0848559434, 57693039, 326663776 #### [facility] (DEFAULT) [address] [place] [address] Test Serum Qual Negative [facility] Comment on above: Performed By: #### 7 154366, 6572992557, 9134027389, 89550859, 162635967 #### [facility] (DEFAULT) [address] [place] [address] Stone Analysison 01-26-2025 Calculi description See Note [facility] Comment on above: Result Comment: (NOT E) Specimen consists of one rondon sample. The total weight is less than 2 mg. Performed By: #### A STONE #### [employer] [address] [place] [address] [id number] Social Work Lecturer: Mane Tolbert MD Composition See Note [facility] Comment on above: Result Comment: (NOT [...] composition determined by FTIR analysis. Performed By: [facility] [address] [place] [address] Nailing Machine Feeder: Jorge Melendrez MD, PhD CLIA Number: [id number] Performed By: #### A STONE #### [employer] [address] [place] [address] Social Work Lecturer: Mane Tolbert MD Mass See Note [facility] Comment on above: Result Comment: (NOT E) Sample mass < 2 mg. Small sample size prevents accurate weight determination. Performed By: #### A STONE #### [address] [address] Social Work Lecturer: Mane Tolbert MD Transfer Noteon 01-26-2025 Transfer Note Patient requires transfer to [facility] for a diagnosis of hydronephrosis. 1527- Kylie from [facility], Tamiko Mercedes NP paged, hospitalist speaks to Dr. Plata, accepts, top gun is open. 1539- Called [facility], reconstructive surgeon Austin gave 20 minute ETA. 1547- [facility] arrives 1550- [facility] calls, bed assignment given, room 321 bed 2, report number [id number] 1610- [facility] departs [Electronically Signed on: 01/26/2025 16:28 EDT] Beth Rodriguez RN [Verified on: 01/26/2025 16:28 EDT] Beth Rodrgiuez RN 1630- Dr. Plata signs physician note, this note was faxed to [facility] at fax number [phone]. [Electronically Signed on: 01/26/2025 16:31 EDT] Beth Rodriguez RN Normal [facility] UA Eqget5it 01-26-2025 UA Bacteria Trace Normal [facility] Comment on above: Order Comment: Urina lysis Microscopic order added on by [employer] Expert Rules system. Performed By: #### 7 946763, [id number], 7434267413, 66417026, 432781947 #### [facility] (DEFAULT) [address] [place] [address] UA Comment. See Comment Invalid Interpretation Code [facility] Comment on above: Order Comment: Urina lysis Microscopic order added on by [employer] Expert Rules system. Result Comment: 4+ S ulfa Crystals present Performed By: #### 7 656225, 4309919524, 1791621071, 85675791, 336207962 #### [facility] (DEFAULT) [address] [place] [address] UA RBC Gross Blood [facility] Comment on above: Order Comment: Urina lysis Microscopic order added on by [employer] Rules system. Performed By: #### 7 429252, 3958795973, 7345029582, 28295018, 046092949 #### [facility] (DEFAULT) [address] [place] [address] UA Squam Epi Moderate Normal [facility] Comment on above: Order Comment: Urina lysis Microscopic order added on by [employer] Expert Rules system. Performed By: #### 7 369900, 4957853346, 3133663868, 29238275, 089588759 #### [facility] (DEFAULT) [address] [place] [address] UA WBC 3-5 Normal [facility] Comment on above: Order Comment: Urina lysis Microscopic order added on by [employer] Expert Rules system. Performed By: #### 7 057895, 8190303969, 7381153893, 52330401, 500275269 #### [facility] (DEFAULT) [address] [place] [address] UA w Culture if Ind Standard on 01-26-2025 Breakpoint UA [facility] Comment on above: Performed By: #### 7 540175, 1529598266, 0468245258, 01344281, 483139389 #### [facility] (DEFAULT) [address] [place] [address] Color (U) Red Normal [facility] Comment on above: Result Comment: Test cannot be satisfactorily determined due to intensely colored urine. Parameters which will be affected are: GLU, BRAIN, URO, KET, BLO, PRO, NIT, LISSA, SG, AND pH. Performed By: #### 7 824356, 3564619860, 9854120560, 86454998, 185563710 #### [facility] (DEFAULT) [address] [place] [address] Culture? Yes Normal [facility] Comment on above: Result Comment: Resu lt created by rule GL_MAGR_ADD_UA_CULT Result created by rule GL_MAGR_ADD_UA_CULT1 Performed By: #### 7 382841, 0411847511, 4657921444, 12502576, 467762029 #### [facility] (DEFAULT) [address] [place] [address] Glucose (U) [Mass/Vol] Negative Normal [facility] Comment on above: Performed By: #### 7 931644, 3282024583, 3021887750, 02676166, 639924219 #### [facility] (DEFAULT) [address] [place] [address] Ketones Ql (U) Negative Normal [facility] Comment on above: Performed By: #### 7 916454, 6168368483, 8067694600, 25744562, 944942281 #### [facility] (DEFAULT) [address] [place] [address] Micro? Indicated Invalid Interpretation Code [facility] Comment on above: Result Comment: Resu lt created by rule GL_MAGR_ADD_UA_MICRO Performed By: #### 7 815575, 7659271860, 7735538662, 91738649, 908219779 #### [facility] (DEFAULT) [address] [place] [address] UA Bilirubin SMALL Abnormal [facility] Comment on above: Performed By: #### 7 685847, 4006233201, 3738276786, 77091488, 993189674 #### [facility] (DEFAULT) [address] [place] [address] UA Blood LARGE Abnormal NEGATIVE [facility] Comment on above: Performed By: #### 7 718373, 1668414116, 6380015223, 41635310, 823973295 #### [facility] (DEFAULT) [address] [place] [address] UA Clarity CLOUDY Abnormal CLEAR [facility] Comment on above: Performed By: #### 7 966172, 4145043410, 1548487071, 83537188, 392999570 #### [facility] (DEFAULT) [address] [place] [address] 51697 UA Leuk Est MODERATE Abnormal NEGATIVE [facility] Comment on above: Performed By: #### 7 556756, 4439891874, 7781229478, 06148315, 759372641 #### [facility] (DEFAULT) [address] [place] [address] 16115 UA Nitrite Negative Normal NEGATIVE [facility] Comment on above: Performed By: #### 7 [id number], [id number], [id number], [id number], [id number] #### [facility] (DEFAULT) [address] [place] [address] UA pH 7.0 Normal 5-8 [facility] Comment on above: Performed By: #### 7 [id number], [id number], [id number], [id number], [id number] #### [facility] (DEFAULT) [address] [place] [address] 89324 UA Protein 100 Abnormal NEGATIVE [facility] Comment on above: Performed By: #### 7 [id number], [id number], [id number], [id number], [id number] #### [facility] (DEFAULT) [address] [place] [address] 68334 UA Spec Grav 1.020 Normal 1.001-1.035 [facility] Comment on above: Performed By: #### 7 [id number], [id number], [id number], [id number], [id number] #### [facility] (DEFAULT) [address] [place] [address] 09024 UA Urobilinogen 0.2 mg/dL Normal 0.2-1.0 [facility] Comment on above: Performed By: #### 7 [id number], [id number], [id number], [id number], [id number] #### [facility] (DEFAULT) [address] [place] [address] 30875 Urine Source Clean Catch Normal [facility] Comment on above: Performed By: #### 7 [id number], [id number], [id number], [id number], [id number] #### [facility] (DEFAULT) [address] [place] [address] UA w/Reflex Cultureon 2024 Bilirubin, SemiQt,Ur Negative Normal NEG [facility] Comment on above: Performed By: #### U AX, UMICAO #### [facility] [address] [place] [address] Social Work Lecturer: Alejandro Salazar MD Blood, Urine LARGE Abnormal NEG [facility] Comment on above: Performed By: #### U AX, UMICAO #### [facility] [address] [place] [address] Social Work Lecturer: Alejandro Salazar MD Clarity (U) Cloudy Abnormal CLEAR [facility] Comment on above: Performed By: #### U AX, UMICAO #### [facility] [address] [place] [address] 35520 Social Work Lecturer: Alejandro Salazar MD Color (U) Boundary Abnormal YEL [facility] Comment on above: Result Comment: INTE RPRET WITH CAUTION DUE TO INTENSE COLOR OF URINE. Performed By: #### U AX, UMICAO #### [facility] [address] [place] [address] 12084 Social Work Lecturer: Alejandro Salazar MD Glucose Ql (U) Negative Normal NEG [facility] Comment on above: Performed By: #### U AX, UMICAO #### [facility] [address] [place] [address] Social Work Lecturer: Alejandro Salazar MD Ketones Ql (U) Negative Normal NEG [facility] Comment on above: Performed By: #### U AX, UMICAO #### [facility] [address] [place] [address] 32284 Social Work Lecturer: Alejandro Salazar MD Leukocyte esterase Test strip Ql (U) MODERATE Abnormal NEG [facility] Comment on above: Performed By: #### U AX, UMICAO #### [facility] [place] [address] Social Work Lecturer: Alejandro Salazar MD Nitrite,Ur Negative Normal NEG [facility] Comment on above: Performed By: #### U AX, UMICAO #### [facility] [address] [place] [address] 48876 Social Work Lecturer: Alejandro Salazar MD PH,Ur 6.5 Normal 5.0-8.0 [facility] Comment on above: Performed By: #### U AX, UMICAO #### [facility] [address] [place] [address] 47769 Social Work Lecturer: Alejandro Salazar MD Protein Ql (U) 2+ mg/dL Abnormal NEG [facility] Comment on above: Performed By: #### U AX UMICAO #### [facility] [address] [place] [address] 61918 Social Work Lecturer: Alejandro Salazar MD Spec. [place],Ur 1.016 Normal 1.005-1.030 [facility] Comment on above: Performed By: #### U AX UMICAO #### [facility] [address] [place] [address] 6[address] Social Work Lecturer: Alejandro Salazar MD Urobilinogen,Ur Normal Normal 0.0-1.0 [facility] Comment on above: Performed By: #### U AX, UMICAO #### [email or web address] [address] [place] [address] 92882 Social Work Lecturer: Alejandro Salazar MD Urinalysis with Reflex to Cu ltureon 01-26-2025 Bilirubin Ql (U) Negative NEGATIVE [facility] Clarity (U) Cloudy Abnormal Clear [facility] Color (U) Boundary Abnormal [facility] Comment on above: INTERPRET WITH CAUTI ON DUE TO INTENSE COLOR OF URINE. Glucose Test strip (U) [Mass/Vol] Negative NEGATIVE mg/dL [facility] Hemoglobin Auto test strip Ql (U) LARGE Abnormal NEGATIVE [facility] Interpretation and review of laboratory results Abnormal [facility] Ketones (U) [Mass/Vol] Negative NEGATIVE mg/dL [facility] Leukocyte esterase Test strip Ql (U) MODERATE Abnormal NEGATIVE [facility] Nitrite Ql (U) Negative NEGATIVE [facility] pH (U) 6.5 [pH] 5.0 - 8.0 [facility] Protein (U) [Mass/Vol] 2+ Abnormal NEGATIVE mg/dL [facility] Specific gravity (U) [Rel density] 1.016 1.005 - 1.030 [facility] Urobilinogen Qn (U) Normal 0.0 - 1. 0 EU/dL [facility] Urinalysis,Microon 5 Bacteria None Normal NONE [facility] Comment on above: Performed By: #### U AX, UMICAO #### [facility] [address] [place] [address]879 Social Work Lecturer: Alejandro Salazar MD Casts 2 TO 5 HYALINE Normal 0-8 [facility] Comment on above: Result Comment: Refe rence range defined for non-centrifuged specimen. Performed By: #### U AX, UMICAO #### [facility] [address] [place] [address] 46092 Social Work Lecturer: Alejandro Salazar MD Epithelial cells LM Ql (Urine sed) 2 TO 5 Normal 0-5 [facility] Comment on above: Performed By: #### U AX, UMICAO #### [facility] [address] [place] [address] 24917 Social Work Lecturer: Alejandro Salazar MD Urine RBC's TOO NUMEROUS TO COUNT Normal 0-4 [facility] Comment on above: Result Comment: Refe rence range defined for non-centrifuged specimen. Performed By: #### U AX, UMICAO #### [facility] [address] [place] [address] 70970 Social Work Lecturer: Alejandro Salazar MD Urine WBC's 20 TO 50 Normal 0-5 [facility] Comment on above: Performed By: #### U AX, UMFERCHOO #### [address] [address] Social Work Lecturer: Alejandro Salazar MD Cult,Urineon 01-23-2025 Cult,Urine Specimen Description .BLADDER URINE FROM CYSTOSCOPY Special Requests Site: Urine Culture NO GROWTH Report Status FINAL 01/23/2025 Normal [facility] Comment on above: Performed By: #### U RC #### [address] [address] Social Work Lecturer: Alejandro Salazar MD Basic Metabolic Profon 01-22 Anion gap [Moles/Vol] 12 mmol/L Normal 9-16 [facility] Comment on above: Performed By: #### B MP #### [address] [address] Social Work Lecturer: Alejandro Salazar MD Calcium [Mass/Vol] 8.4 mg/dL Low 8.6-10.4 [facility] Comment on above: Performed By: #### B MP #### [address] [address] Social Work Lecturer: Alejandro Salazar MD Chloride [Moles/Vol] 107 mmol/L Normal 98-107 [facility] Comment on above: Performed By: #### B MP #### [address] [address] Social Work Lecturer: Alejandro Salazar MD CO2 [Moles/Vol] 21 mmol/L Normal 20-31 [facility] Comment on above: Performed By: #### B MP #### [address] [address] Social Work Lecturer: Alejandro Salazar MD Creatinine [Mass/Vol] 0.7 mg/dL Normal 0.6-0.9 [facility] Comment on above: Performed By: #### B MP #### [email or web address] [facility] [address] [place] [address] [phone] Social Work Lecturer: Alejandro Salazar MD GFR/1.73 sq M.predicted among [...] secretion. Performed By: #### B MP #### [facility] [address] [place] [address] Social Work Lecturer: Alejandro Salazar MD Glucose [Mass/Vol] 94 mg/dL Normal 74-99 [facility] Comment on above: Performed By: #### B MP #### [facility] [address] [place] [address] Social Work Lecturer: Alejandro Salazar MD Potassium [Moles/Vol] 4.2 mmol/L Normal 3.7-5.3 [facility] Comment on above: Result Comment: Spec imen hemolysis has exceeded the interference as defined by Denise. Value may be falsely increased. Suggest recollection if clinically indicated. Performed By: #### B MP #### [facility] [address] [place] [address] Social Work Lecturer: Alejandro Salazar MD Sodium [Moles/Vol] 140 mmol/L Normal 136-145 [facility] Comment on above: Performed By: #### B MP #### [facility] [address] [place] [address] [phone] Social Work Lecturer: Alejandro Salazar MD Urea nitrogen [Mass/Vol] 6 mg/dL Normal 6-20 [facility] Comment on above: Performed By: #### B #### [facility] [address] [place] [address] Social Work Lecturer: Alejandro Salazar MD Basic metabolic panelon Anion [...] Campus Est, Glohayley Lundt Rate - PINF [facility] Comment on above: These [...] 6 mg/dL 6 - 20 mg/dL [facility] CBC with Auto Differentialon 01-22-2025 Basophils [...] [facility] Immature granulocytes (Bld) [#/Vol] [facility] [...] Campus WBC other (Bld) [#/Vol] 3.5 [facility] CBC with Diffon 01-22-2025 Abs. Basophil 0.03 k/uL Normal 0.00-0.20 [facility] Comment on above: Performed By: #### C DP #### [address] [address] Social Work Lecturer: Alejandro Salazar MD Abs. Eosinophil <0.03 Normal 0.00-0.44 [facility] Comment on above: Performed By: #### C DP #### [address] [address] Social Work Lecturer: Alejandro Salazar MD Abs.Imm.Granulocyte <0.03 Normal 0.00-0.30 [facility] Comment on above: Performed By: #### C DP #### [address] [address] Social Work Lecturer: Alejandro Salazar MD Abs.Neutrophil (Seg) 1.96 k/uL Normal 1.50-8.10 [facility] Comment on above: Performed By: #### C DP #### [address] [address] Social Work Lecturer: Alejandro Salazar MD Basophils/100 WBC (Bld) 1 % Normal 0-2 [facility] Comment on above: Performed By: #### C DP #### [address] [address] Social Work Lecturer: Alejandro Salazar MD Eosinophils/100 WBC (Bld) 1 % Normal 1-4 [facility] Comment on above: Performed By: #### C DP #### [address] [address] Social Work Lecturer: Alejandro Salazar MD Erythrocyte distribution width (RBC) [Ratio] 12.5 % Normal 11.8-14.4 [facility] Comment on above: Performed By: #### C DP #### [address] [address] Social Work Lecturer: Alejandro Salazar MD Hematocrit (Bld) [Volume fraction] 36.7 % Normal 36.3-47.1 [facility] Comment on above: Performed By: #### C DP #### [address] [address] Social Work Lecturer: Alejandro Salazar MD Hemoglobin (Bld) [Mass/Vol] 11.8 g/dL Low 11.9-15.1 [facility] Comment on above: Performed By: #### C DP #### [address] [address] Social Work Lecturer: Alejandro Salazar MD Immature granulocytes/100 WBC (Bld) 0 % Normal 0 [facility] Comment on above: Performed By: #### C DP #### [address] [address] Social Work Lecturer: Alejandro Salazar MD Lymphocytes (Bld) [#/Vol] 1.19 10*3/uL Normal 1.10-3.70 [facility] Comment on above: Performed By: #### C DP #### [address] [address] Social Work Lecturer: Alejandro Salazar MD Lymphocytes/100 WBC (Bld) 34 % Normal 24-43 [facility] Comment on above: Performed By: #### C DP #### [address] [address] Social Work Lecturer: Alejandro Salazar MD MCH (RBC) [Entitic mass] 27.6 pg Normal 25.2-33.5 [facility] Comment on above: Performed By: #### C DP #### [address] [address] Social Work Lecturer: Alejandro Salazar MD MCHC (RBC) [Mass/Vol] 32.2 g/dL Normal 28.4-34.8 [facility] Comment on above: Performed By: #### C DP #### [address] [address] Social Work Lecturer: Alejandro Salazar MD MCV (RBC) [Entitic vol] 85.7 fL Normal 82.6-102.9 [facility] Comment on above: Performed By: #### C DP #### [place] [address] Social Work Lecturer: Alejandro Salazar MD Monocytes (Bld) [#/Vol] 0.30 10*3/uL Normal 0.10-1.20 [facility] Comment on above: Performed By: #### C DP #### [place] [address] Social Work Lecturer: Alejandro Salazar MD Monocytes/100 WBC (Bld) 9 % Normal 3-12 [facility] Comment on above: Performed By: #### C DP #### [address] [address] Social Work Lecturer: Alejandro Salazar MD Neutrophil (Seg) 55 % Normal 36-65 [facility] Comment on above: Performed By: #### C DP #### [place] [address] Social Work Lecturer: Alejandro Salazar MD NRBC Automated 0.0 per 100 WBC Normal 0.0 [facility] Comment on above: Performed By: #### C DP #### [place] [address] Social Work Lecturer: Alejandro Salazar MD Platelet mean volume (Bld) [Entitic vol] 9.1 fL Normal 8.1-13.5 [facility] Comment on above: Performed By: #### C DP #### [facility] [address] [place] [address] Social Work Lecturer: Alejandro Salazar MD Platelets (Bld) [#/Vol] 217 10*3/uL Normal 138-453 [facility] Comment on above: Performed By: #### C DP #### [facility] [address] [place] [address] Social Work Lecturer: Alejandro Salazar MD RBC (Bld) [#/Vol] 4.28 10*6/uL Normal 3.95-5.11 [facility] Comment on above: Performed By: #### C DP #### [facility] [address] [place] [address] Social Work Lecturer: Alejandro Salazar MD WBC (Bld) [#/Vol] 3.5 10*3/uL Normal 3.5-11.3 [facility] Comment on above: Performed By: #### C DP #### [facility] [address] [place] [address] Social Work Lecturer: Alejandro Salazar MD FLUORO FOR SURGICAL PROCEDUR [...] 1 mmol/L 0.7 - 2.1 mmol/L [facility] Lactic Acid,Whole Bl 1.0 mmol/L Normal 0.7-2.1 [facility] Comment on above: Performed By: #### L ACTIC #### [facility] [address] [place] [address] Social Work Lecturer: Alejandro Salazar MD PREVIOUS SPECIMENon 01-23-20 25 [facility] Urine Cultureon 01-21-2025 Bacteria identified Cx Nom (U) ORGANISM: Escherichia coli (O:ESCCOL) [place] Count >100,000 Aerobic ANASTASIA Charge (NMIC56) ---- [...] RESISTANT TO ALL B-LACTAM DRUGS. PERFORMED BY: [place] [address] PATHOLOGIST RESOURCE FORESTER DAVID TIERNEY M.D. Normal [facility] Comment on above: Performed By: #### C UU #### [address] [place] VOIDING URETHROCYSTOGRAM S AND Ion 01-17-2025 [place] VOIDING URETHROCYSTOGRAM S AND I EXAMINATION: VOIDING CYSTO URETHROGRAM 01/17/2025 7:55 am COMPARISON: None. HISTORY: ORDERING SYSTEM PROVIDED HISTORY: VUR (vesicoureteric reflux) TECHNOLOGIST PROVIDED HISTORY: Is the patient ?->No Reason for Exam: frequent UTI, kidney stones FLUOROSCOPY DOSE AND TYPE: Radiation Exposure Index: DAP 184.39dRllf2, FINDINGS: 600 mL of Cystografin was instilled [...] for vesicoureteric reflux. 2. Small postvoid residual. [facility] RIS CONSOLIDATED EXAMINATION: VOIDING CYSTO URETHROGRAM 01/17/2025 7:55 am COMPARISON: None. HISTORY: ORDERING SYSTEM PROVIDED HISTORY: VUR (vesicoureteric reflux) TECHNOLOGIST PROVIDED HISTORY: Is the patient ?->No Reason for Exam: frequent UTI, kidney stones FLUOROSCOPY DOSE AND TYPE: Radiation Exposure Index: DAP 184.40uTksg4, FINDINGS: 600 mL of Cystografin was instilled [...] the urethra. There is small postvoid residual. [facility] RIS CONSOLIDATED Casey Sharma MD - 01/17/2025 EXAMINATION: VOIDING CYSTO URETHROGRAM 01/17/2025 7:55 am COMPARISON: None. HISTORY: ORDERING SYSTEM PROVIDED HISTORY: VUR (vesicoureteric reflux) TECHNOLOGIST PROVIDED HISTORY: Is the patient ?->No Reason for Exam: frequent UTI, kidney stones FLUOROSCOPY DOSE AND TYPE: Radiation Exposure Index: DAP 184.11wBcjx9, FINDINGS: 600 mL of Cystografin was instilled [...] Glen Perez MD 01/16/25 Final result Normal [facility] Urine Cultureon 12-02-2024 Bacteria identified Cx Nom (U) 30,000 colonies/ml mixed bacterial skin contaminants 2 Days PERFORMED BY: [place] [address] PATHOLOGIST RESOURCE FORESTER DAVID TIERNEY M.D. Normal [facility] Comment on above: Performed By: #### C UU #### [address] Urine cultureOrdered By: Vicente Snyder on 12-02-2024 Bacteria identified Cx Nom (U) Urine culture [facility] Cholesterol [Mass/volume] in Serum or PlasmaOrdered By: Arnulfo Aviles on 04-09-2024 Cholesterol [Mass/Vol] 150 mg/dL 140-200 [facility] Comment on above: Chol less than 200 m g/dl low riskChol 201-239 mg/dl borderline riskChol 240 mg/dl and greater high risk Cholesterol in LDL Calc [Mas s/Vol]Ordered By: Arnulfo Aviles on 04-09-2024 Cholesterol in LDL [Mass/Vol] 90 mg/dL 0-100 [facility] Comment on above: LDL ATP III CLASSIFI CATIONLDL less than 100 mg/dL OptimalLDL 100-129 mg/dL Near or above optimalLDL 130-159 mg/dL Borderline highLDL 160-189 mg/dL HighLDL greater than 189 mg/dL Very high Cholesterol in VLDL Calc [Ma ss/Vol]Ordered By: Arnulfo Aviles on 04-09-2024 Cholesterol in VLDL [Mass/Vol] 16 mg/dL [facility] Serum or plasma high density lipoprotein (HDL) cholesterol measurementOrdered By: Arnulfo Aviles on 04-09-2024 Cholesterol in HDL [Mass/Vol] 44 mg/dL 23-92 [facility] Comment on above: HDL CHOL ATP-III CLA SSIFICATION Cardiovascular RiskHDL > or equal to 60 mg/dL LOWHDL < 40 mg/dL HIGH Serum or plasma total choles terol/high density lipoprotein (HDL) cholesterol mass ratOrdered By: Arnulfo Aviles on 04-09-2024 Cholesterol.total/Cho lesterol in HDL [Mass ratio] 3.4 {ratio} <5.0 [facility] Thyrotropin [Units/volume] i n Serum or PlasmaOrdered By: Arnulfo Aviles on 04-09-2024 TSH Qn 2.01 m[IU]/L 0.45-5.33 [facility] Triglyceride [Mass/volume] i n Serum or PlasmaOrdered By: Arnulfo Aviles on 04-09-2024 Triglyceride [Mass/Vol] 82 mg/dL 0-149 [facility] Comment on above: TRIG ATP III CLASSIF ICATIONTRIG less than 150 mg/dL NormalTRIG 150-199 mg/dL Borderline highTRIG 200-500 mg/dL High TRIG greater than 500 mg/dL Very highStandard traceable to the Center for Disease Conrtrol and Prevention (CDC) test method. Vitamin D+Metabolites [Mass/ volume] in Serum or PlasmaOrdered By: Arnulfo Aviles on 04-09-2024 Vitamin D+Metabolites [Mass/Vol] 26.2 ng/mL 30-100 [facility] Comment on above: VITAMIN D STATUS 25( [place])VITAMIN D RANGE (ng/mL) Deficient <20 Insufficient 20 to <30Sufficient 30 to 100Reference: José Miguel MF,Jennifer NC, Mady MARTI, et al. Evaluation,treatment, and prevention of vitamin D deficiency; an Endocrine Society clinical practice guideline. JCEM. 2010; 96(7):1911-30. Patient Letter FTon 2023 Patient Letter [facility] December 04, 2023 DIANA BARRIGA [address] [place] [id number] : 1990 Dear Diana, You missed your scheduled appointment on: 12/04/[address] oNna Raygoza. Please note our appointment slots fill [...] [facility] [address], [place] [address] [facility] Lab Reportson 06-05-2023 Lab Reports [id number] .00CD:127 [facility] Reminderson 04-24-2023 Reminders - From: Whitney [...] with the results. duplicate message [facility] Operative Reporton Operative Report [id number]#1. 00CD:127 [facility] RAD - MISCon 04-10-2023 RAD - MISC [id number] .00CD:127 [facility] Lab Reportson 04-06-2023 Lab Reports [id number]#1 .00CD:127 [facility] Lab Reports [id number] .00CD:127 [facility] Lab Reportson 03-23-2023 Lab Reports [id number] .00CD:127 [facility] Lab Reports [id number] .00CD:127 Normal [facility] Lab Reports [id number] .00CD:127 Normal [facility] RAD - CT Reporton 03-23-[address] RAD - CT Report [id number] .00CD:127 Normal [facility] RAD - CT Report [id number] .00CD:127 Normal [facility] Ambulatory Visit Summaryon 0 [...] Where: [facility] [address] [place] [address]- Medications What When Instructions Unchanged olanzapine-samidorpha n [...] b (more content not included)... [facility] Consent for Procedure/Surger yon 03-20-2023 Consent for Procedure/Surgery [id number] .00CD:127 [facility] Patient Educationon 03-20-20 23 Patient Education [...] Spinach (cooked), rhubarb, beets, sweet potatoes, and Cambodian chard. ? Peanuts. ? Potato chips, nepalese fries, and baked potatoes with skin on. ? Nuts and nut products. ? Chocolate. ? If you regularly take a diuretic medicine, make sure to eat at least 1 or 2 servings of fruits or vegetables that are high in potassium each day. These include: ? Avocado. ? Banana. ? Boundary, prune, carrot, or tomato juice. ? Baked [...] fish oil, or vitamin B6. ? Take lfuo-wpj-fmrrism and prescription medicines only as told by your health care provider. These include supplements. What foods should I limit? Limit your in (more content not included)... Normal [facility]rology Office/Clinic Noteon 03-20-2023 Urology Office/Clinic Note [...] Lt kidney pain. Did got to the [place] ER. DX'd & treated for UTI. (NEG [...] L. Ox slightly elevated. Pt presented to [facility] ER on 03/06/23 due to [...] mg qd. SEs discussed. [facility]. -Electrolyte panel 4 weeks to the day [...] MD, URL [facility] [address] [place] [address]- Additional Instructions: schedule R ESWL Patient Education [...] kidney s (more content not included)... Normal [facility] Comment on above: Result Comment: Elec tronically Signed By: Nona RAYGOZA MD\.br\Date and Time Signed: 03/20/23 11:30 EDT\.br\Electronically Co-Signed By: Whitney Collier\.br\Date and Time Co-Signed: 03/20/23 11:28 EDT CBC AUTO DIFFon 02-16-2023 BASO # 0.1 103/ul Normal 0.0-0.1 [facility] Comment on above: Performed By: #### U KJ 24 #### [facility] [address] [address] [address] Ramses Dumas Basophils/100 WBC (Bld) 0.5 % Normal 0.2-2.0 [facility] Comment on above: Performed By: #### U KJ 24 #### [facility] [address] [address] [address] Ramses Dumas EO # 0.0 103/ul Normal 0.0-0.7 [facility] Comment on above: Performed By: #### U KJ 24 #### [facility] [address] [place] [address] Dr. Ramses Dumas Eosinophils/100 WBC (Bld) 0.4 % Critically low 0.9-7.0 [facility] Comment on above: Performed By: #### U KJ 24 #### [facility] [address] [place] [address] Dr. Ramses Dumas Erythrocyte distribution width (RBC) [Ratio] 13.7 % Normal 11.0-15.0 [facility] Comment on above: Performed By: #### U KJ 24 #### [facility] [address] [place] [address] Dr. Ramses Dumas Hematocrit (Bld) [Volume fraction] 45.1 % Normal 36.0-48.0 [facility] Comment on above: Performed By: #### U KJ 24 #### [facility] [address] [place] [address] Dr. Ramses Dumas Hemoglobin (Bld) [Mass/Vol] 14.3 g/dL Normal 12.0-16.0 [facility] Comment on above: Performed By: #### U KJ 24 #### [facility] [address] [place] [address] Dr. Ramses Dumas IG # 0.02 10e3/ul Normal 0.00-0.03 [facility] Comment on above: Performed By: #### U KJ 24 #### [facility] [address] [place] [address] Dr. Ramses Dumas IG % 0.2 % Normal 0.0-0.5 [facility] Comment on above: Performed By: #### U KJ 24 #### [facility] [address] [place] [address] Dr. Ramses Dumas LYMPH # 2.5 103/ul Normal 1.2-3.8 [facility] Comment on above: Performed By: #### U KJ 24 #### [facility] [address] [place] [address] Dr. Ramses Dumas Lymphocytes/100 WBC (Bld) 26.4 % Normal 20.5-60.0 [facility] Comment on above: Performed By: #### U KJ 24 #### [facility] [address] [address] [address] Ramses Dumas MANUAL DIFF REQ NO Normal [facility] Comment on above: Performed By: #### U KJ 24 #### [facility] [address] [place] [address] Dr. Ramses Dumas MCH (RBC) [Entitic mass] 25.6 pg Critically low 26.7-34.0 [facility] Comment on above: Performed By: #### U KJ 24 #### [facility] [address] [place] [address] Dr. Ramses Dumas MCHC (RBC) [Mass/Vol] 31.7 g/dL Normal 29.9-35.2 [facility] Comment on above: Performed By: #### U KJ 24 #### [facility] [address] [place] [address] Dr. Ramses Dumas MCV (RBC) [Entitic vol] 80.7 fL Critically low 81.0-99.0 [facility] Comment on above: Performed By: #### U KJ 24 #### [facility] [address] [place] [address] Dr. Ramses Dumas MONO # 0.7 103/ul Normal 0.3-0.8 [facility] Comment on above: Performed By: #### U KJ 24 #### [facility] [address] [place] [address] Dr. Ramses Dumas Monocytes/100 WBC (Bld) 7.6 % Normal 1.7-12.0 [facility] Comment on above: Performed By: #### U KJ 24 #### [facility] [address] [place] [address] Dr. Ramses Dmuas NEUT # 6.1 103/ul Normal 1.4-6.5 [facility] Comment on above: Performed By: #### U KJ 24 #### [facility] [address] [place] [address] Dr. Ramses Dumas Neutrophils/100 WBC (Bld) 64.9 % Normal 43.0-75.0 [facility] Comment on above: Performed By: #### U KJ 24 #### [facility] [address] [address] [address] Ramses Dumas Platelet mean volume (Bld) [Entitic vol] 11.0 fL Normal 9.5-13.5 [facility] Comment on above: Performed By: #### U KJ 24 #### [facility] [address] [address] [address] Ramses Dumas PLT 270 103/ul Normal 150-450 [facility] Comment on above: Performed By: #### U KJ 24 #### [facility] [address] [address] [address] Ramses Dumas RBC 5.59 106/ul Critically high 4.20-5.40 [facility] Comment on above: Performed By: #### U KJ 24 #### [facility] [address] [place] [address] Dr. Ramses Dumas WBC 9.4 103/ul Normal 4.0-11.0 [facility] Comment on above: Performed By: #### U KJ 24 #### [facility] [address] [place] [address] ABD/PELV W CONon [...] FARTUN NOVOA Date: 2023-02-16 18:21 Normal [facility] ER URINE PROFILEon 3 Bilirubin Ql (U) SMALL Abnormal NEGATIVE [facility] Comment on above: Performed By: #### C MP #### [facility] [address] [place] [address] Dr. Ramses Dumas Clarity (U) CLEAR Normal CLEAR [facility] Comment on above: Performed By: #### C MP #### [facility] [address] [place] [address] Dr. Ramses Dumas Color (U) YELLOW Normal YELLOW [facility] Comment on above: Performed By: #### C MP #### [facility] [address] [place] [address] Dr. Ramses Dumas ERUCARLOS ENRIQUE A micrscopic examination will be performed if indicated. Normal [facility] Comment on above: Performed By: #### C MP #### [facility] [address] [place] [address] Dr. Ramses Dumas Glucose Ql (U) Negative Normal NEGATIVE [facility] Comment on above: Performed By: #### C MP #### [facility] [address] [place] [address] Dr. Ramses Dumas Hemoglobin Ql (U) Negative Normal NEGATIVE [facility] Comment on above: Performed By: #### C MP #### [facility] [address] [place] [address] Dr. Ramses Dumas Ketones Ql (U) 40 mg/dl Abnormal NEGATIVE [facility] Comment on above: Performed By: #### C MP #### [facility] [address] [place] [address] Dr. Ramses Dumas LEUKOCYTES SMALL Abnormal NEGATIVE [facility] Comment on above: Performed By: #### C MP #### [facility] [address] [place] [address] Dr. Ramses Dumas Nitrite Ql (U) Negative Normal NEGATIVE [facility] Comment on above: Performed By: #### C MP #### [facility] [address] [place] [address] Dr. Ramses Dumas pH (U) 7.0 [pH] Normal 5-9 [facility] Comment on above: Performed By: #### C MP #### [facility] [address] [place] [address] Dr. Ramses Dumas Protein (U) [Mass/Vol] 30 mg/dL Abnormal NEGATIVE/ TRACE [facility] Comment on above: Performed By: #### C MP #### [facility] [address] [place] [address] Dr. Ramses Dumas SPEC GRAVITY 1.020 Normal 1.005-<=1.02 5 [facility] Comment on above: Performed By: #### C MP #### [facility] [address] [place] [address] Dr. Ramses Dumas UR MICRO IND INDICATED Normal [facility] Comment on above: Performed By: #### C MP #### [facility] [address] [place] [address] Dr. Ramses Dumas Urobilinogen Qn (U) 4 {Lucero'U}/dL Abnormal 0.2 - 1.0 [facility] Comment on above: Performed By: #### C MP #### [facility] [address] [place] [address] Dr. Ramses Dumas LIPASEon 02-16-2023 Lipase [Catalytic activity/Vol] 67.0 U/L Critically low 73.0-393.0 [facility] Comment on above: Performed By: #### U RCX #### [facility] [address] [address] [address] Ramses Dumas LIVER PROFILEon 02-16-2023 Albumin [Mass/Vol] 4.1 g/dL Normal 3.4-5.0 [facility] Comment on above: Performed By: #### U RCX #### [facility] [address] [place] [address] Dr. Ramses Dumas Albumin/Globulin [Mass ratio] 1.0 {ratio} Normal [facility] Comment on above: Performed By: #### U RCX #### [facility] [address] [address] [address] Ramses Dumas ALP [Catalytic activity/Vol] 85 U/L Normal 46-116 [facility] Comment on above: Performed By: #### U RCX #### [facility] [address] [place] [address] Dr. Ramses Dumas ALT [Catalytic activity/Vol] 61 U/L Critically high 14-59 [facility] Comment on above: Performed By: #### U RCX #### [facility] [address] [place] [address] Dr. Ramses Dumas AST [Catalytic activity/Vol] 43 U/L Critically high 15-37 [facility] Comment on above: Performed By: #### U RCX #### [facility] [address] [place] [address] Dr. Ramses Dumas BILI, CONJUGATED 0.1 mg/dL Normal 0.0-0.2 [facility] Comment on above: Performed By: #### U RCX #### [facility] [address] [place] [address] Dr. Ramses Dumas Bilirubin [Mass/Vol] 0.7 mg/dL Normal 0.2-1.0 [facility] Comment on above: Performed By: #### U RCX #### [facility] [address] [place] [address] Dr. Ramses Dumas Globulin (S) [Mass/Vol] 4.2 g/dL Normal [facility] Comment on above: Performed By: #### U RCX #### [facility] [address] [address] [address] Ramses Dumas Protein [Mass/Vol] 8.3 g/dL Critically high 6.4-8.2 [facility] Comment on above: Performed By: #### U RCX #### [facility] [address] [address] [address] Ramses Dumas URon 02-16-2023 , QUAL Negative Normal NEGATIVE [facility] Comment on above: Performed By: #### C MP #### [facility] [address] [place] [address] Dr. Ramses Dumas PROF CHEM 8 (BAS METB)on Anion gap [Moles/Vol] 14.2 mmol/L Normal [facility] Comment on above: Performed By: #### U RCX #### [facility] [address] [place] [address] Dr. Ramses Dumas Calcium [Mass/Vol] 9.5 mg/dL Normal 8.5-10.1 [facility] Comment on above: Performed By: #### U RCX #### [facility] [address] [address] [address] Ramses Dumas Chloride [Moles/Vol] 102 mmol/L Normal 98-107 [facility] Comment on above: Performed By: #### U RCX #### [facility] [address] [place] [address] Dr. Ramses Dumas CO2 [Moles/Vol] 27.5 mmol/L Normal 21.0-32.0 [facility] Comment on above: Performed By: #### U RCX #### [facility] [address] [place] [address] Dr. Ramses Dumas Creatinine [Mass/Vol] 0.71 mg/dL Normal 0.55-1.02 [facility] Comment on above: Performed By: #### U RCX #### [facility] [address] [place] [address] Dr. Ramses Dumas EGFR-AF THAI >60 Normal >=60 [facility] Comment on above: Performed By: #### U RCX #### [facility] [address] [address] [address] Ramses Dumas EGFR-NON AF THAI >60 Normal >=60 [facility] Comment on above: Performed By: #### U RCX #### [facility] [address] [address] [address] Ramses Dumas Glucose [Mass/Vol] 90 mg/dL Normal 74-106 [facility] Comment on above: Performed By: #### U RCX #### [facility] [address] [address] [address] Ramses Dumas Potassium [Moles/Vol] 3.7 mmol/L Normal 3.5-5.1 [facility] Comment on above: Performed By: #### U RCX #### [facility] [address] [place] [address] Dr. Ramses Dumas Sodium [Moles/Vol] 140 mmol/L Normal 136-145 [facility] Comment on above: Performed By: #### U RCX #### [facility] [address] [place] [address] Dr. Ramses Dumas Urea nitrogen [Mass/Vol] 6.0 mg/dL Critically low 7.0-18.0 [facility] Comment on above: Performed By: #### U RCX #### [facility] [address] [place] [address] Dr. Ramses Dumas Urea nitrogen/Creatinine [Mass ratio] 8.5 mg/mg Normal [facility] Comment on above: Performed By: #### U RCX #### [facility] [address] [place] [address] Dr. Ramses Dumas URINE MICROSCOPIC ONLYon BACTERIA NONE SEEN Normal NONE SEEN [facility] Comment on above: Performed By: #### U KJ 24 #### [facility] [address] [place] [address] Dr. Ramses Dumas Bacteria identified Cx Nom (U) NOT INDICATED Normal [facility] Comment on above: Performed By: #### U KJ 24 #### [facility] [address] [place] [address] Dr. Ramses Dumas CAST NONE SEEN Normal NONE SEEN [facility] Comment on above: Performed By: #### U KJ 24 #### [facility] [address] [place] [address] Dr. Ramses Dumas Crystals LM Nom (Urine sed) NONE SEEN Normal NONE SEEN [facility] Comment on above: Performed By: #### U KJ 24 #### [facility] [address] [place] [address] Dr. Ramses Dumas Epithelial cells LM Ql (Urine sed) FEW Abnormal NONE SEEN /RARE [facility] Comment on above: Performed By: #### U KJ 24 #### [facility] [address] [place] [address] Dr. Ramses Dumas MUCOUS SMALL Abnormal NONE SEEN [facility] Comment on above: Performed By: #### U KJ 24 #### [facility] [address] [place] [address] Dr. Ramses Dumas RBC NONE SEEN Abnormal 0-2 [facility] Comment on above: Performed By: #### U KJ 24 #### [facility] [address] [place] [address] Dr. Ramses Dumas WBC 0-2 Abnormal NONE SEEN [facility] Comment on above: Performed By: #### U KJ 24 #### [facility] [address] [place] [address] Dr. Ramses Dumas PAP ACOG PANEL 2: 30 to 65on 02-10-2023 . . Normal [facility] Comment on above: Result Comment: Perf ormed at: WB Performed By: #### U RCX #### [facility] [address] [place] [address] Dr. Ramses Dumas Age Gdln ACOG Testing 30-65 Normal [facility] Comment on above: Performed By: #### U RCX #### [facility] [address] [place] [address] Dr. Ramses Dumas DIAGNOSIS: Comment Normal [facility] Comment on above: Result Comment: NEGA TIVE FOR INTRAEPITHELIAL LESION OR MALIGNANCY. REACTIVE CELLULAR CHANGES AND/OR REPAIR ARE PRESENT. Performed at: WB Performed By: #### U RCX #### [facility] [address] [address] [address] Ramses Dumas Electronically signed by: Comment Normal [facility] Comment on above: Result Comment: Chelsey Boston MD, Pathologist Performed at: WB Performed By: #### U RCX #### [facility] [address] [address] [address] Ramses Dumas HPV Aptima Negative Normal Negative [facility] Comment on above: Result Comment: This nucleic acid amplification test detects fourteen high-risk HPV types (16,18,31,33,35,39,45,51,52,56,58,59,66,68) without differentiation. Performed at: =G Performed By: #### U RCX #### [facility] [address] [place] [address] Dr. Ramses Dumas HPV Genotype Reflex Comment Normal [facility] Comment on above: Result Comment: Crit eria not met, HPV Genotype not performed. Performed at: WB Performed By: #### U RCX #### [facility] [address] [place] [address] Dr. Ramses Dumas Methodology: Comment Normal [facility] Comment on above: Result Comment: This liquid based ThinPrep(R) pap test was screened with the use of an image guided system. Performed at: WB Performed By: #### U RCX #### [facility] [address] [place] [address] Dr. Ramses Dumas Note: Comment Normal [facility] Comment on above: Result Comment: The [...] WB Performed By: #### U RCX #### [facility] [address] [place] [address] Dr. Ramses Dumas Performed by: Comment Normal [facility] Comment on above: Result Comment: Cuca Briceno, Physical Education Instructor (ASCP) Performed at: WB Performed By: #### U RCX #### [facility] [address] [address] [address] Rasmes Dumas Specimen adequacy: Comment Normal [facility] Comment on above: Result Comment: Sati sfactory for evaluation. Endocervical and/or squamous metaplastic cells (endocervical component) are present. Performed at: WB Performed By: #### U RCX #### [facility] [address] [address] [address] Ramses Dumas Lab Reportson 12-29-2022 Lab Reports [id number] .[id number]:127 Normal [facility] RAD - MISCon 12-21-2022 RAD - MISC [id number] .[id number]:127 Normal [facility] OXALATE 24HR URINEon 023 Oxalates, Urine 44 mg/L Normal Undefined [facility] Comment on above: Performed By: #### U KJ 24 #### [facility] [address] [place] [address] Dr. Ramses Dumas Oxalates, Urine 24hr 44 mg/24 hr Critically high 4-31 [facility] Comment on above: Performed By: #### U KJ 24 #### [facility] [address] [place] [address] Dr. Ramses Dumas CITRATE URINE 24HRon 023 Citric Acid, U, 24hr 658 mg/24 hr Normal 320-1240 [facility] Comment on above: Result Comment: This test was developed and its performance characteristics determined by [facility]. It has not been cleared or approved by the Food and Drug Administration. Performed By: #### C ITRATU #### [facility] [address] [place] [address] Dr. Ramses Dumas Citric Acid, Urine 658 mg/L Normal Undefined [facility] Comment on above: Performed By: #### C ITRATU #### [facility] [address] [place] [address] Dr. Ramses Dumas MAGNESIUM 24HR URINEon 12-17 Magnesium 24hr Urine 119.0 mg/24 hr Normal 12.0-293.0 [facility] Comment on above: Performed By: #### U RCX #### [facility] [address] [place] [address] Dr. Ramses Dumas Magnesium UR 11.9 mg/dL Normal Not Estab. [facility] Comment on above: Performed By: #### U RCX #### [facility] [address] [place] [address] Dr. Ramses Dumas PHOSPHORUS 24HR URINEon Phosphorus, Urine 81.4 mg/dL Normal Not Estab. [facility] Comment on above: Performed By: #### B LDCX2 #### [facility] [address] [place] [address] Dr. Ramses Dumas Phosphorus, Urine 24hr 814 mg/24 hr Normal 261-1078 [facility] Comment on above: Performed By: #### B LDCX2 #### [facility] [address] [place] [address] Dr. Ramses Dumas PTH INTACTon 12-17-2022 PTH, Intact 46 pg/mL Normal 15-65 [facility] Comment on above: Performed By: #### U RCX #### [facility] [address] [place] [address] Dr. Ramses Dumas URIC ACID 24 HR URINEon Uric Acid, Urine 69.9 mg/dL Normal Not Estab. [facility] Comment on above: Performed By: #### U KJ 24 #### [facility] [address] [place] [address] Dr. Ramses Dumas Uric Acid, Urine 24hr 699.0 mg/24 hr Normal 173.7-902. 1 [facility] Comment on above: Performed By: #### U KJ 24 #### [facility] [address] [place] [address] Dr. Ramses Dumas BUNon 12-16-2022 Urea nitrogen [Mass/Vol] 7.0 mg/dL Normal 7.0-18.0 [facility] Comment on above: Performed By: #### C BC #### [facility] [address] [place] [address] Dr. Ramses Dumas CALCIUMon 12-16-2022 Calcium [Mass/Vol] 8.8 mg/dL Normal 8.5-10.1 [facility] Comment on above: Performed By: #### C BC #### [facility] [address] [place] [address] Dr. Ramses Dumas CALCIUM 24 HR URINEon 2022 CALC, 24 HR UR 295.0 mg/24 hr Normal 100.0-300.0 [facility] Comment on above: Performed By: #### B LDCX2 #### [facility] [address] [place] [address] Dr. Ramses Dumas UR CALCIUM 29.5 mg/dL Critically high 5.1-21.0 [facility] Comment on above: Performed By: #### B LDCX2 #### [facility] [address] [place] [address] Dr. Ramses Dumas CHLORIDEon 12-16-2022 Chloride [Moles/Vol] 105 mmol/L Normal 98-107 [facility] Comment on above: Performed By: #### C BC #### [facility] [address] [place] [address] Dr. Ramses Dumas CO2on 12-16-2022 CO2 [Moles/Vol] 26.4 mmol/L Normal 21.0-32.0 [facility] Comment on above: Performed By: #### C MP #### [facility] [address] [place] [address] Dr. Ramses Dumas CREA 24 HR URINEon 3 CREA, 24 HR UR 2337.30 mg/24 hr Critically high 800.00 -1,800 .00 [facility] Comment on above: Performed By: #### C VDTBH #### [facility] [address] [place] [address] Dr. Ramses Dumas URINE CREAT 233.73 mg/dL Normal 20.00-300.[address] [facility] Comment on above: Performed By: #### C VDTBH #### [facility] [address] [address] [address] Ramses Dumas CREATININEon 12-16-2022 Creatinine [Mass/Vol] 0.70 mg/dL Normal 0.55-1.02 [facility] Comment on above: Performed By: #### C MP #### [facility] [address] [place] [address] Dr. Ramses Dumas EGFR-AF THAI >60 Normal >=60 [facility] Comment on above: Performed By: #### C MP #### [facility] [address] [place] [address] Dr. Ramses Dumas EGFR-NON AF THAI >60 Normal >=60 [facility] Comment on above: Performed By: #### C MP #### [facility] [address] [address] [address] Ramses Dumas NAon 12-16-2022 Sodium [Moles/Vol] 139 mmol/L Normal 136-145 [facility] Comment on above: Performed By: #### C MP #### [facility] [address] [place] [address] Dr. Ramses Dumas POTASSIUMon 12-16-2022 Potassium [Moles/Vol] 4.0 mmol/L Normal 3.5-5.1 [facility] Comment on above: Performed By: #### C MP #### [facility] [address] [place] [address] Dr. Rmases Dumas SODIUM 24 HR URINEon 023 NA, 24 HR UR 193 mmol/24 hr Normal 40-220 [facility] Comment on above: Performed By: #### C VDTBH #### [facility] [address] [place] [address] Dr. Ramses Dumas Sodium (U) [Moles/Vol] 193 mmol/L Critically high 30-90 [facility] Comment on above: Performed By: #### C VDTBH #### [facility] [address] [place] [address] Dr. Ramses Dumas UR TOT VOL 1000 ml/24 HR Normal [facility] Comment on above: Performed By: #### C VDTBH #### [facility] [address] [place] [address] Dr. Ramses Dumas Performed By: #### B LDCX2 #### [facility] [address] [place] [address] Dr. Ramses Dumas URIC ACID SERUMon 12-16-2022 Urate [Mass/Vol] 5.6 mg/dL Normal 2.6-6.0 [facility] Comment on above: Performed By: #### C MP #### [facility] [address] [place] [address] Dr. Ramses Dumas XR KUB 1 VIEWon [...] JENNIFER GATES Date: 2022-12-15 08:26 Normal [facility] CBC AUTO DIFFon 11-07-2022 BASO # 0.0 103/ul Normal 0.0-0.1 [facility] Comment on above: Performed By: #### U RCX #### [facility] [address] [place] [address] Dr. Ramses Dumas Basophils/100 WBC (Bld) 0.7 % Normal 0.2-2.0 [facility] Comment on above: Performed By: #### U RCX #### [facility] [address] [place] [address] Dr. Ramses Dumas EO # 0.1 103/ul Normal 0.0-0.7 [facility] Comment on above: Performed By: #### U RCX #### [facility] [address] [place] [address] Dr. Ramses Dumas Eosinophils/100 WBC (Bld) 1.9 % Normal 0.9-7.0 [facility] Comment on above: Performed By: #### U RCX #### [facility] [address] [place] [address] Dr. Ramses Dumas Erythrocyte distribution width (RBC) [Ratio] 13.6 % Normal 11.0-15.0 [facility] Comment on above: Performed By: #### U RCX #### [facility] [address] [place] [address] Dr. Ramses Dumas Hematocrit (Bld) [Volume fraction] 37.3 % Normal 36.0-48.0 [facility] Comment on above: Performed By: #### U RCX #### [facility] [address] [place] [address] Dr. Ramses Dumas Hemoglobin (Bld) [Mass/Vol] 12.2 g/dL Normal 12.0-16.0 [facility] Comment on above: Performed By: #### U RCX #### [facility] [address] [place] [address] Dr. Ramses Dumas IG # 0.02 10e3/ul Normal 0.00-0.03 [facility] Comment on above: Performed By: #### U RCX #### [facility] [address] [place] [address] Dr. Ramses Dumas IG % 0.3 % Normal 0.0-0.5 [facility] Comment on above: Performed By: #### U RCX #### [facility] [address] [place] [address] Dr. Ramses Dumas LYMPH # 2.3 103/ul Normal 1.2-3.8 [facility] Comment on above: Performed By: #### U RCX #### [facility] [address] [place] [address] Dr. Ramses Dumas Lymphocytes/100 WBC (Bld) 39.6 % Normal 20.5-60.0 [facility] Comment on above: Performed By: #### U RCX #### [facility] [address] [place] [address] Dr. Ramses Dumas MANUAL DIFF REQ NO Normal [facility] Comment on above: Performed By: #### U RCX #### [facility] [address] [address] [address] Ramses Dumas MCH (RBC) [Entitic mass] 26.4 pg Critically low 26.7-34.0 [facility] Comment on above: Performed By: #### U RCX #### [facility] [address] [place] [address] Dr. Ramses Dumas MCHC (RBC) [Mass/Vol] 32.7 g/dL Normal 29.9-35.2 [facility] Comment on above: Performed By: #### U RCX #### [facility] [address] [place] [address] Dr. Ramses Dumas MCV (RBC) [Entitic vol] 80.7 fL Critically low 81.0-99.0 [facility] Comment on above: Performed By: #### U RCX #### [facility] [address] [place] [address] Dr. Ramses Dumas MONO # 0.5 103/ul Normal 0.3-0.8 [facility] Comment on above: Performed By: #### U RCX #### [facility] [address] [place] [address] Dr. Ramses Dumas Monocytes/100 WBC (Bld) 8.0 % Normal 1.7-12.0 [facility] Comment on above: Performed By: #### U RCX #### [facility] [address] [place] [address] Dr. Ramses Dumas NEUT # 2.9 103/ul Normal 1.4-6.5 [facility] Comment on above: Performed By: #### U RCX #### [facility] [address] [place] [address] Dr. Ramses Dumas Neutrophils/100 WBC (Bld) 49.5 % Normal 43.0-75.0 [facility] Comment on above: Performed By: #### U RCX #### [facility] [address] [place] [address] Dr. Ramses Dumas Platelet mean volume (Bld) [Entitic vol] 9.0 fL Critically low 9.5-13.5 [facility] Comment on above: Performed By: #### U RCX #### [facility] [address] [place] [address] Dr. Ramses Dumas PLT 337 103/ul Normal 150-450 [facility] Comment on above: Performed By: #### U RCX #### [facility] [address] [place] [address] Dr. Ramses Dumas RBC 4.62 106/ul Normal 4.20-5.40 [facility] Comment on above: Performed By: #### U RCX #### [facility] [address] [place] [address] Dr. Ramses Dumas WBC 5.9 103/ul Normal 4.0-11.0 [facility] Comment on above: Performed By: #### U RCX #### [facility] [address] [place] [address] Dr. Ramses Dumas POINT OF CARE GLUCOSEon 10-20 Glucose [Mass/Vol] 115 mg/dL Critically high 74-106 [facility] Comment on above: Performed By: #### C VDTBH #### [facility] [address] [place] [address] Dr. Ramses Dumas PREG QUANT HCGon 11-07-2022 HCG QUANT <1 Normal [facility] Comment on above: Performed By: #### C VDTBH #### [facility] [address] [place] [address] Dr. Ramses Dumas HCG RANGE SEE BELOW Normal [facility] Comment on above: Result Comment: 5-50 0.2-1 WEEK 50-500 1-2 WEEKS 100-5,000 2-3 WEEKS 500-10,000 3-4 WEEKS 1,000-50,000 4-5 WEEKS 10,000-100,000 5-6 WEEKS 15,000-200,000 6-8 WEEKS 10,000-100,000 2-3 MONTHS Performed By: #### C VDTBH #### [facility] [address] [place] [address] Dr. Ramses Dumas US PELVIS AND TRANSVAGon [...] cm right ovarian simple cyst Normal [facility] CBC AUTO DIFFon 11-03-2022 BASO # 0.1 103/ul Normal 0.0-0.1 [facility] Comment on above: Performed By: #### U RCX #### [facility] [address] [address] [address] Ramses Dumas Basophils/100 WBC (Bld) 0.8 % Normal 0.2-2.0 [facility] Comment on above: Performed By: #### U RCX #### [facility] [address] [address] [address] Ramses Dumas EO # 0.1 103/ul Normal 0.0-0.7 [facility] Comment on above: Performed By: #### U RCX #### [facility] [address] [address] [address] Ramses Dumas Eosinophils/100 WBC (Bld) 1.4 % Normal 0.9-7.0 [facility] Comment on above: Performed By: #### U RCX #### [facility] [address] [address] [address] Ramses Dumas Erythrocyte distribution width (RBC) [Ratio] 13.4 % Normal 11.0-15.0 [facility] Comment on above: Performed By: #### U RCX #### [facility] [address] [place] [address] Dr. Ramses Dumas Hematocrit (Bld) [Volume fraction] 38.8 % Normal 36.0-48.0 [facility] Comment on above: Performed By: #### U RCX #### [facility] [address] [place] [address] Dr. Ramses Dumas Hemoglobin (Bld) [Mass/Vol] 12.7 g/dL Normal 12.0-16.0 [facility] Comment on above: Performed By: #### U RCX #### [facility] [address] [place] [address] Dr. Ramses Dumas IG # 0.01 10e3/ul Normal 0.00-0.03 [facility] Comment on above: Performed By: #### U RCX #### [facility] [address] [place] [address] Dr. Ramses Dumas IG % 0.1 % Normal 0.0-0.5 [facility] Comment on above: Performed By: #### U RCX #### [facility] [address] [place] [address] Dr. Ramses Dumas LYMPH # 1.9 103/ul Normal 1.2-3.8 [facility] Comment on above: Performed By: #### U RCX #### [facility] [address] [place] [address] Dr. Ramses Dumas Lymphocytes/100 WBC (Bld) 26.4 % Normal 20.5-60.0 [facility] Comment on above: Performed By: #### U RCX #### [facility] [address] [place] [address] Dr. Ramses Dumas MANUAL DIFF REQ NO Normal [facility] Comment on above: Performed By: #### U RCX #### [facility] [address] [place] [address] Dr. Ramses Dumas MCH (RBC) [Entitic mass] 26.3 pg Critically low 26.7-34.0 [facility] Comment on above: Performed By: #### U RCX #### [facility] [address] [address] [address] Ramses Dumas MCHC (RBC) [Mass/Vol] 32.7 g/dL Normal 29.9-35.2 [facility] Comment on above: Performed By: #### U RCX #### [facility] [address] [address] [address] Ramses Dumas MCV (RBC) [Entitic vol] 80.5 fL Critically low 81.0-99.0 [facility] Comment on above: Performed By: #### U RCX #### [facility] [address] [address] [address] Ramses Dumas MONO # 0.6 103/ul Normal 0.3-0.8 [facility] Comment on above: Performed By: #### U RCX #### [facility] [address] [address] [address] Ramses Dumas Monocytes/100 WBC (Bld) 8.2 % Normal 1.7-12.0 [facility] Comment on above: Performed By: #### U RCX #### [facility] [address] [place] [address] Dr. Ramses Dumas NEUT # 4.5 103/ul Normal 1.4-6.5 [facility] Comment on above: Performed By: #### U RCX #### [facility] [address] [address] [address] Ramses Dumas Neutrophils/100 WBC (Bld) 63.1 % Normal 43.0-75.0 [facility] Comment on above: Performed By: #### U RCX #### [facility] [address] [address] [address] Ramses Dumas Platelet mean volume (Bld) [Entitic vol] 8.9 fL Critically low 9.5-13.5 [facility] Comment on above: Performed By: #### U RCX #### [facility] [address] [place] [address] Dr. Ramses Dumas PLT 340 103/ul Normal 150-450 [facility] Comment on above: Performed By: #### U RCX #### [facility] [address] [address] [address] Ramses Dumas RBC 4.82 106/ul Normal 4.20-5.40 [facility] Comment on above: Performed By: #### U RCX #### [facility] [address] [address] [address] Ramses Dumas WBC 7.1 103/ul Normal 4.0-11.0 [facility] Comment on above: Performed By: #### U RCX #### [facility] [address] [address] [address] Ramses Dumas Covid-19 PCR ([facility])on 10-19 SARS-CoV-2 (COVID-19) RNA FRANCESCA+probe Ql (Unsp spec) Not detected Normal NOT DETECTED [facility] Comment on above: Result Comment: This test is not yet approved or cleared by the [place] FDA. When there are no FDA-approved or cleared tests available, and other criteria are met, FDA can make tests available under an emergency access mechanism called an Emergency Use Authorization (EUA). The EUA for this test is supported by the [place] of Health and Human Service's (HHS's) declaration [...] SARS-CoV-2. Performed By: #### U RCX #### [facility] [address] [place] [address] Dr. Ramses Dumas FREE T4on 11-03-2022 Free T4 [Mass/Vol] 0.99 ng/dL Normal 0.76-1.46 [facility] Comment on above: Performed By: #### B LDCX2 #### [facility] [address] [place] [address] Dr. Ramses Dumas GLYCOHEMOGLOBIN A1Con 2022 ADA RECOMMENDATION SEE BELOW Normal [facility] Comment on above: Result Comment: ADA RECOMMENDED LIMIT 4.0 - 6.0 ADA THERAPEUTIC TARGET < 7.0 ACTION SUGGESTED > 7.0 Performed By: #### C VDTBH #### [facility] [address] [place] [address] Dr. Ramses Dumas Glucose [Mass/Vol] 117 mg/dL Normal [facility] Comment on above: Performed By: #### C VDTBH #### [facility] [address] [place] [address] Dr. Ramses Dumas HbA1c (Bld) [Mass fraction] 5.7 % Normal 4.5-6.2 [facility] Comment on above: Performed By: #### C VDTBH #### [facility] [address] [place] [address] Dr. Ramses Dumas PROTIMEon 11-03-2022 INR Coag (PPP) [Relative time] 0.97 {INR} Normal [facility] Comment on above: Performed By: #### U KJ 24 #### [facility] [address] [place] [address] Dr. Ramses Dumas INR GUIDELINES SEE BELOW Normal [facility] Comment on above: Result Comment: TOÑA RED INR: 2.0 - 3.0 CONDITIONS NOT LISTED BELOW 2.5 - 3.5 FOR PROSTHETIC HEART VALVE REPLACEMENT 2.5 - 3.5 RECURRENT THROMBOSIS Performed By: #### U KJ 24 #### [facility] [address] [place] [address] Dr. Ramses Dumas PT Coag (PPP) [Time] 10.3 s Normal 9.0-11.6 [facility] Comment on above: Performed By: #### U KJ 24 #### [facility] [address] [place] [address] Dr. Ramses Dumas PTTon 11-03-2022 aPTT Coag (Bld) [Time] 27.7 s Normal 22.3-36.2 [facility] Comment on above: Performed By: #### U KJ 24 #### [facility] [address] [address] [address] Ramses Dumas TSHon 11-03-2022 TSH 0.667 uIU/mL Normal 0.358-3.740 [facility] Comment on above: Performed By: #### C VDTBH #### [facility] [address] [address] [address] Ramses Dumas PREG HCG QUALon 09-18-2022 , QUAL Negative Normal NEGATIVE [facility] Comment on above: Performed By: #### U KJ 24 #### [facility] [address] [address] [address] Ramses Dumas Covid-19 PCR ([facility])on 08-20 SARS-CoV-2 (COVID-19) RNA FRANCESCA+probe Ql (Unsp spec) Not detected Normal NOT DETECTED [facility] Comment on above: Result Comment: This test is not yet approved or cleared by the [place] FDA. When there are no FDA-approved or cleared tests available, and other criteria are met, FDA can make tests available under an emergency access mechanism called an Emergency Use Authorization (EUA). The EUA for this test is supported by the [place] of Health and Human Service's (HHS's) declaration [...] SARS-CoV-2. Performed By: #### C VDTBH #### [facility] [address] [place] [address] Dr. Ramses Dumas CBC AUTO DIFFon 09-05-2022 BASO # 0.1 103/ul Normal 0.0-0.1 [facility] Comment on above: Performed By: #### B LDCX2 #### [facility] [address] [place] [address] Dr. Ramses Dumas Basophils/100 WBC (Bld) 0.7 % Normal 0.2-2.0 [facility] Comment on above: Performed By: #### B LDCX2 #### [facility] [address] [place] [address] Dr. Ramses Dumas EO # 0.2 103/ul Normal 0.0-0.7 [facility] Comment on above: Performed By: #### B LDCX2 #### [facility] [address] [place] [address] Dr. Ramses Dumas Eosinophils/100 WBC (Bld) 2.2 % Normal 0.9-7.0 [facility] Comment on above: Performed By: #### B LDCX2 #### [facility] [address] [place] [address] Dr. Ramses Dumas Erythrocyte distribution width (RBC) [Ratio] 13.9 % Normal 11.0-15.0 [facility] Comment on above: Performed By: #### B LDCX2 #### [facility] [address] [place] [address] Dr. Ramses Dumas Hematocrit (Bld) [Volume fraction] 38.8 % Normal 36.0-48.0 [facility] Comment on above: Performed By: #### B LDCX2 #### [facility] [address] [place] [address] Dr. Ramses Dumas Hemoglobin (Bld) [Mass/Vol] 12.6 g/dL Normal 12.0-16.0 [facility] Comment on above: Performed By: #### B LDCX2 #### [facility] [address] [place] [address] Dr. Ramses Dumas IG # 0.03 10e3/ul Normal 0.00-0.03 [facility] Comment on above: Performed By: #### B LDCX2 #### [facility] [address] [place] [address] Dr. Ramses Dumas IG % 0.3 % Normal 0.0-0.5 [facility] Comment on above: Performed By: #### B LDCX2 #### [facility] [address] [place] [address] Dr. Ramses Dumas LYMPH # 2.3 103/ul Normal 1.2-3.8 [facility] Comment on above: Performed By: #### B LDCX2 #### [facility] [address] [place] [address] Dr. Ramses Dumas Lymphocytes/100 WBC (Bld) 21.3 % Normal 20.5-60.0 [facility] Comment on above: Performed By: #### B LDCX2 #### [facility] [address] [place] [address] Dr. Ramses Dumas MANUAL DIFF REQ NO Normal [facility] Comment on above: Performed By: #### B LDCX2 #### [facility] [address] [place] [address] Dr. Ramses Dumas MCH (RBC) [Entitic mass] 26.4 pg Critically low 26.7-34.0 [facility] Comment on above: Performed By: #### B LDCX2 #### [facility] [address] [place] [address] Dr. Ramses Dumas MCHC (RBC) [Mass/Vol] 32.5 g/dL Normal 29.9-35.2 [facility] Comment on above: Performed By: #### B LDCX2 #### [facility] [address] [place] [address] Dr. Ramses Dumas MCV (RBC) [Entitic vol] 81.2 fL Normal 81.0-99.0 [facility] Comment on above: Performed By: #### B LDCX2 #### [facility] [address] [place] [address] Dr. Ramses Dumas MONO # 0.8 103/ul Normal 0.3-0.8 [facility] Comment on above: Performed By: #### B LDCX2 #### [facility] [address] [place] [address] Dr. Ramses Dumas Monocytes/100 WBC (Bld) 7.4 % Normal 1.7-12.0 [facility] Comment on above: Performed By: #### B LDCX2 #### [facility] [address] [place] [address] Dr. Ramses Dumas NEUT # 7.3 103/ul Critically high 1.4-6.5 [facility] Comment on above: Performed By: #### B LDCX2 #### [facility] [address] [place] [address] Dr. Ramses Dumas Neutrophils/100 WBC (Bld) 68.1 % Normal 43.0-75.0 [facility] Comment on above: Performed By: #### B LDCX2 #### [facility] [address] [place] [address] Dr. Ramses Dumas Platelet mean volume (Bld) [Entitic vol] 8.8 fL Critically low 9.5-13.5 [facility] Comment on above: Performed By: #### B LDCX2 #### [facility] [address] [place] [address] Dr. Ramses Dumas PLT 323 103/ul Normal 150-450 [facility] Comment on above: Performed By: #### B LDCX2 #### [facility] [address] [place] [address] Dr. Ramses Dumas RBC 4.78 106/ul Normal 4.20-5.40 [facility] Comment on above: Performed By: #### B LDCX2 #### [facility] [address] [place] [address] Dr. Ramses Dumas WBC 10.7 103/ul Normal 4.0-11.0 [facility] Comment on above: Performed By: #### B LDCX2 #### [facility] [address] [place] [address] Dr. Ramses Dumas CULTURE URINEon 09-05-2022 CULTURE URINE Culture Observations : LIGHT GROWTH OF MIXED GENITAL DAIANA. NO POTENTIAL PATHOGENS SEEN. Normal [facility] Comment on above: Performed By: #### U RCX #### [facility] [address] [place] [address] Dr. Ramses Dumas ER URINE PROFILEon 2 Bilirubin Ql (U) Negative Normal NEGATIVE [facility] Comment on above: Performed By: #### B LDCX2 #### [facility] [address] [place] [address] Dr. Ramses Dumas Clarity (U) CLOUDY Abnormal CLEAR [facility] Comment on above: Performed By: #### B LDCX2 #### [facility] [address] [place] [address] Dr. Ramses Dumas Color (U) YELLOW Normal YELLOW [facility] Comment on above: Performed By: #### B LDCX2 #### [facility] [address] [place] [address] Dr. Ramses DELEON A micrscopic examination will be performed if indicated. Normal [facility] Comment on above: Performed By: #### B LDCX2 #### [facility] [address] [place] [address] Dr. Ramses Dumas Glucose Ql (U) Negative Normal NEGATIVE [facility] Comment on above: Performed By: #### B LDCX2 #### [facility] [address] [place] [address] Dr. Ramses Dumas Hemoglobin Ql (U) LARGE Abnormal NEGATIVE [facility] Comment on above: Performed By: #### B LDCX2 #### [facility] [address] [place] [address] Dr. Ramses Dumas Ketones Ql (U) Negative Normal NEGATIVE [facility] Comment on above: Performed By: #### B LDCX2 #### [facility] [address] [place] [address] Dr. Ramses Dumas LEUKOCYTES SMALL Abnormal NEGATIVE [facility] Comment on above: Performed By: #### B LDCX2 #### [facility] [address] [place] [address] Dr. Ramses Dumas Nitrite Ql (U) Negative Normal NEGATIVE [facility] Comment on above: Performed By: #### B LDCX2 #### [facility] [address] [place] [address] Dr. Ramses Dumas pH (U) 6.0 [pH] Normal 5-9 [facility] Comment on above: Performed By: #### B LDCX2 #### [facility] [address] [place] [address] Dr. Ramses Dumas Protein (U) [Mass/Vol] 100 mg/dL Abnormal NEGATIVE/ TRACE [facility] Comment on above: Performed By: #### B LDCX2 #### [facility] [address] [place] [address] Dr. Ramses Dumas SPEC GRAVITY >=1.030 Abnormal 1.005-<=1.02 5 [facility] Comment on above: Performed By: #### B LDCX2 #### [facility] [address] [place] [address] Dr. Ramses Dumas UR MICRO IND INDICATED Normal [facility] Comment on above: Performed By: #### B LDCX2 #### [facility] [address] [place] [address] Dr. Ramses Dumas Urobilinogen Qn (U) 0.2 {Lucero'U}/dL Normal 0.2 - 1. 0 [facility] Comment on above: Performed By: #### B LDCX2 #### [facility] [address] [place] [address] Dr. Ramses Dumas URon 09-05-2022 , QUAL Negative Normal NEGATIVE [facility] Comment on above: Performed By: #### B LDCX2 #### [facility] [address] [place] [address] Dr. Ramses Dumas PROF CHEM 8 (BAS METB)on Anion gap [Moles/Vol] 11.7 mmol/L Normal [facility] Comment on above: Performed By: #### C MP #### [facility] [address] [place] [address] Dr. Ramses Dumas Calcium [Mass/Vol] 9.1 mg/dL Normal 8.5-10.1 [facility] Comment on above: Performed By: #### C MP #### [facility] [address] [place] [address] Dr. Ramses Dumas Chloride [Moles/Vol] 103 mmol/L Normal 98-107 [facility] Comment on above: Performed By: #### C MP #### [facility] [address] [address] [address] Ramses Dumas CO2 [Moles/Vol] 25.9 mmol/L Normal 21.0-32.0 [facility] Comment on above: Performed By: #### C MP #### [facility] [address] [address] [address] Ramses Dumas Creatinine [Mass/Vol] 0.77 mg/dL Normal 0.55-1.02 [facility] Comment on above: Performed By: #### C MP #### [facility] [address] [address] [address] Ramses Dumas EGFR-AF THAI >60 Normal >=60 [facility] Comment on above: Performed By: #### C MP #### [facility] [address] [address] [address] Ramses Dumsa EGFR-NON AF THAI >60 Normal >=60 [facility] Comment on above: Performed By: #### C MP #### [facility] [address] [address] [address] Ramses Dumas Glucose [Mass/Vol] 124 mg/dL Critically high 74-106 [facility] Comment on above: Performed By: #### C MP #### [facility] [address] [address] [address] Ramses Dumas Potassium [Moles/Vol] 3.6 mmol/L Normal 3.5-5.1 [facility] Comment on above: Performed By: #### C MP #### [facility] [address] [address] [address] Ramses Dumas Sodium [Moles/Vol] 137 mmol/L Normal 136-145 [facility] Comment on above: Performed By: #### C MP #### [facility] [address] [address] [address] Ramses Dumas Urea nitrogen [Mass/Vol] 12.0 mg/dL Normal 7.0-18.0 [facility] Comment on above: Performed By: #### C MP #### [facility] [address] [address] [address] Ramses Dumas Urea nitrogen/Creatinine [Mass ratio] 15.6 mg/mg Normal [facility] [facility] Comment on above: Performed By: #### C MP #### [facility] [address] [place] [address] Dr. Ramses Dumas URINE MICROSCOPIC ONLYon AMORPHOUS CRYSTALS RARE Normal [facility] Comment on above: Performed By: #### B [id number] #### [facility] [address] [place] [address] Dr. Ramses Dumas BACTERIA TRACE Abnormal NONE SEEN [facility] Comment on above: Performed By: #### B [id number] #### [facility] [address] [place] [address] Dr. Ramses Dumas Bacteria identified Cx Nom (U) INDICATED Normal [facility] Comment on above: Performed By: #### B LDCX2 #### [facility] [address] [place] [address] Dr. Ramses Dumas CA OX CRYSTALS RARE Normal [facility] Comment on above: Performed By: #### B LDCX2 #### [facility] [address] [place] [address] Dr. Ramses Dumas CAST NONE SEEN Normal NONE SEEN [facility] Comment on above: Performed By: #### B [id number] #### [facility] [address] [place] [address] Dr. Ramses Dumas Crystals LM Nom (Urine sed) SEEN Abnormal NONE SEEN [facility] Comment on above: Performed By: #### B LDCX2 #### [facility] [address] [address] [address] Ramses Dumas Epithelial cells LM Ql (Urine sed) FEW Abnormal NONE SEEN /RARE [facility] Comment on above: Performed By: #### B LDCX2 #### [facility] [address] [place] [address] Dr. Ramses Dumas MUCOUS TRACE Abnormal NONE SEEN [facility] Comment on above: Performed By: #### B LDCX2 #### [facility] [address] [address] [address] Ramses Dumas RBC 50-75 Abnormal 0-2 [facility] Comment on above: Performed By: #### B LDCX2 #### [facility] [address] [place] [address] Dr. Ramses Dumas WBC 20-50 Abnormal NONE SEEN [facility] Comment on above: Performed By: #### B LDCX2 #### [facility] [address] [address] [address] Ramses Dumas YEAST PRESENT Abnormal NONE SEEN [facility] Comment on above: Performed By: #### B [id number] #### [facility] [address] [place] [address] Dr. Ramses Dumas US KIDNEYSon 09-05-2022 US [...] GLEN PEREZ Date: 2022-09-05 11:00 Normal [facility] CT ABD/PELVIS WO CONon 08-29 CT [...] ERICKA IGLESIAS Date: 2022-08-29 01:10 Normal [facility] CULTURE URINEon 08-29-2022 CULTURE URINE Culture Observations : LIGHT GROWTH OF MIXED GENITAL DAIANA. NO POTENTIAL PATHOGENS SEEN. Normal [facility] Comment on above: Performed By: #### U RCX #### [facility] [address] [place] [address] Dr. Ramses Dumas CBC AUTO DIFFon 08-28-2022 BASO # 0.1 103/ul Normal 0.0-0.1 [facility] Comment on above: Performed By: #### U RCX #### [facility] [address] [address] [address] Ramses Dumas Basophils/100 WBC (Bld) 0.5 % Normal 0.2-2.0 [facility] Comment on above: Performed By: #### U RCX #### [facility] [address] [place] [address] Dr. Ramses Dumas EO # 0.3 103/ul Normal 0.0-0.7 [facility] Comment on above: Performed By: #### U RCX #### [facility] [address] [address] [address] Ramses Dumas Eosinophils/100 WBC (Bld) 2.3 % Normal 0.9-7.0 [facility] Comment on above: Performed By: #### U RCX #### [facility] [address] [place] [address] Dr. Ramses Dumas Erythrocyte distribution width (RBC) [Ratio] 13.7 % Normal 11.0-15.0 [facility] Comment on above: Performed By: #### U RCX #### [facility] [address] [place] [address] Dr. Ramses Dumas Hematocrit (Bld) [Volume fraction] 36.7 % Normal 36.0-48.0 [facility] Comment on above: Performed By: #### U RCX #### [facility] [address] [place] [address] Dr. Ramses Dumas Hemoglobin (Bld) [Mass/Vol] 12.3 g/dL Normal 12.0-16.0 [facility] Comment on above: Performed By: #### U RCX #### [facility] [address] [place] [address] Dr. Ramses Dumas IG # 0.16 10e3/ul Critically high 0.00-0.03 [facility] Comment on above: Performed By: #### U RCX #### [facility] [address] [place] [address] Dr. Ramses Dumas IG % 1.1 % Critically high 0.0-0.5 [facility] Comment on above: Performed By: #### U RCX #### [facility] [address] [place] [address] Dr. Ramses Dumas LYMPH # 4.6 103/ul Critically high 1.2-3.[address] [facility] Comment on above: Performed By: #### U RCX #### [facility] [address] [place] [address] Dr. Ramses Dumas Lymphocytes/100 WBC (Bld) 31.8 % Normal 20.5-60.0 [facility] Comment on above: Performed By: #### U RCX #### [facility] [address] [place] [address] Dr. Ramses Dumas MANUAL DIFF REQ NO Normal [facility] Comment on above: Performed By: #### U RCX #### [facility] [address] [place] [address] Dr. Ramses Dumas MCH (RBC) [Entitic mass] 26.9 pg Normal 26.7-34.0 [facility] Comment on above: Performed By: #### U RCX #### [facility] [address] [place] [address] Dr. Ramses Dumas MCHC (RBC) [Mass/Vol] 33.5 g/dL Normal 29.9-35.2 [facility] Comment on above: Performed By: #### U RCX #### [facility] [address] [place] [address] Dr. Ramses Dumas MCV (RBC) [Entitic vol] 80.3 fL Critically low 81.0-99.0 [facility] Comment on above: Performed By: #### U RCX #### [facility] [address] [place] [address] Dr. Ramses Dumas MONO # 1.0 103/ul Critically high 0.3-0.8 [facility] Comment on above: Performed By: #### U RCX #### [facility] [address] [place] [address] Dr. Ramses Dumas Monocytes/100 WBC (Bld) 7.0 % Normal 1.7-12.0 [facility] Comment on above: Performed By: #### U RCX #### [facility] [address] [place] [address] Dr. Ramses Dumas NEUT # 8.2 103/ul Critically high 1.4-6.[address] [facility] Comment on above: Performed By: #### U RCX #### [facility] [address] [place] [address] Dr. Ramses Dumas Neutrophils/100 WBC (Bld) 57.3 % Normal 43.0-75.0 [facility] Comment on above: Performed By: #### U RCX #### [facility] [address] [place] [address] Dr. Ramses Dumas Platelet mean volume (Bld) [Entitic vol] 8.6 fL Critically low 9.5-13.5 [facility] Comment on above: Performed By: #### U RCX #### [facility] [address] [place] [address] Dr. Ramses Dumas PLT 395 103/ul Normal 150-450 [facility] Comment on above: Performed By: #### U RCX #### [facility] [address] [place] [address] Dr. Ramses Dumas RBC 4.57 106/ul Normal 4.20-5.40 [facility] Comment on above: Performed By: #### U RCX #### [facility] [address] [place] [address] Dr. Ramses Dumas WBC 14.3 103/ul Critically high 4.0-11.0 [facility] Comment on above: Performed By: #### U RCX #### [facility] [address] [place] [address] Dr. Ramses KUMAR URINE PROFILEon 2 Bilirubin Ql (U) Negative Normal NEGATIVE [facility] Comment on above: Performed By: #### U KJ 24 #### [facility] [address] [place] [address] Dr. Ramses Dumas Clarity (U) CLEAR Normal CLEAR [facility] Comment on above: Performed By: #### U KJ 24 #### [facility] [address] [place] [address] Dr. Ramses Dumas Color (U) LT. YELLOW Normal YELLOW [facility] Comment on above: Performed By: #### U KJ 24 #### [facility] [address] [place] [address] Dr. Ramses Dumas ERUAHWalter A micrscopic examination will be performed if indicated. Normal [facility] Comment on above: Performed By: #### U KJ 24 #### [facility] [address] [address] [address] Ramses Dumas Glucose Ql (U) Negative Normal NEGATIVE [facility] Comment on above: Performed By: #### U KJ 24 #### [facility] [address] [place] [address] Dr. Ramses Dumas Hemoglobin Ql (U) LARGE Abnormal NEGATIVE [facility] Comment on above: Performed By: #### U KJ 24 #### [facility] [address] [place] [address] Dr. Ramses Dumas Ketones Ql (U) Negative Normal NEGATIVE [facility] Comment on above: Performed By: #### U KJ 24 #### [facility] [address] [place] [address] Dr. Ramses Dumas LEUKOCYTES MODERATE Abnormal NEGATIVE [facility] Comment on above: Performed By: #### U KJ 24 #### [facility] [address] [place] [address] Dr. Ramses Dumas Nitrite Ql (U) Negative Normal NEGATIVE [facility] Comment on above: Performed By: #### U KJ 24 #### [facility] [address] [place] [address] Dr. Ramses Dumas pH (U) 6.5 [pH] Normal 5-9 [facility] Comment on above: Performed By: #### U KJ 24 #### [facility] [address] [place] [address] Dr. Ramses Dumas Protein (U) [Mass/Vol] 100 mg/dL Abnormal NEGATIVE/ TRACE [facility] Comment on above: Performed By: #### U KJ 24 #### [facility] [address] [place] [address] Dr. Ramses Dumas SPEC GRAVITY 1.020 Normal 1.005-<=1.02 5 [facility] Comment on above: Performed By: #### U KJ 24 #### [facility] [address] [place] [address] Dr. Ramses Dumas UR MICRO IND INDICATED Normal [facility] Comment on above: Performed By: #### U KJ 24 #### [facility] [address] [place] [address] Dr. Ramses Dumas Urobilinogen Qn (U) 0.2 {Ulcero'U}/dL Normal 0.2 - 1. 0 [facility] Comment on above: Performed By: #### U KJ 24 #### [facility] [address] [place] [address] Dr. Ramses Dumas PROF 14(COMP METB)on 022 Albumin [Mass/Vol] 3.3 g/dL Critically low 3.4-5.0 [facility] Comment on above: Performed By: #### C MP #### [facility] [address] [place] [address] Dr. Ramses Dumas Albumin/Globulin [Mass ratio] 0.8 {ratio} Normal [facility] Comment on above: Performed By: #### C MP #### [facility] [address] [place] [address] Dr. Ramses Dumas ALP [Catalytic activity/Vol] 108 U/L Normal 46-116 [facility] Comment on above: Performed By: #### C MP #### [facility] [address] [place] [address] Dr. Ramses Dumas ALT [Catalytic activity/Vol] 103 U/L Critically high 14-59 [facility] Comment on above: Performed By: #### C MP #### [facility] [address] [place] [address] Dr. Ramses Dumas Anion gap [Moles/Vol] 6.6 mmol/L Normal [facility] Comment on above: Performed By: #### C MP #### [facility] [address] [place] [address] Dr. Ramses Dumas AST [Catalytic activity/Vol] 21 U/L Normal 15-37 [facility] Comment on above: Performed By: #### C MP #### [facility] [address] [place] [address] Dr. Ramses Dumas Bilirubin [Mass/Vol] 0.2 mg/dL Normal 0.2-1.0 [facility] Comment on above: Performed By: #### C MP #### [facility] [address] [place] [address] Dr. Ramses Dumas Calcium [Mass/Vol] 9.2 mg/dL Normal 8.5-10.1 [facility] Comment on above: Performed By: #### C MP #### [facility] [address] [address] [address] Ramses Dumas Chloride [Moles/Vol] 102 mmol/L Normal 98-107 [facility] Comment on above: Performed By: #### C MP #### [facility] [address] [address] [address] Ramses Dumas CO2 [Moles/Vol] 28.8 mmol/L Normal 21.0-32.0 [facility] Comment on above: Performed By: #### C MP #### [facility] [address] [place] [address] Dr. Ramses Dumas Creatinine [Mass/Vol] 0.92 mg/dL Normal 0.55-1.02 [facility] Comment on above: Performed By: #### C MP #### [facility] [address] [place] [address] Dr. Ramses Dumas EGFR-AF THAI >60 Normal >=60 [facility] Comment on above: Performed By: #### C MP #### [facility] [address] [place] [address] Dr. Ramses Dumas EGFR-NON AF THAI >60 Normal >=60 [facility] Comment on above: Performed By: #### C MP #### [facility] [address] [place] [address] Dr. Ramses Dumas Globulin (S) [Mass/Vol] 4.1 g/dL Normal [facility] Comment on above: Performed By: #### C MP #### [facility] [address] [address] [address] Ramses Dumas Glucose [Mass/Vol] 114 mg/dL Critically high 74-106 [facility] Comment on above: Performed By: #### C MP #### [facility] [address] [place] [address] Dr. Ramses Dumas Potassium [Moles/Vol] 3.4 mmol/L Critically low 3.5-5.1 [facility] Comment on above: Performed By: #### C MP #### [facility] [address] [address] [address] Ramses Dumas Protein [Mass/Vol] 7.4 g/dL Normal 6.4-8.2 [facility] Comment on above: Performed By: #### C MP #### [facility] [address] [address] [address] Ramses Dumas Sodium [Moles/Vol] 134 mmol/L Critically low 136-145 [facility] Comment on above: Performed By: #### C MP #### [facility] [address] [address] [address] Ramses Dumas Urea nitrogen [Mass/Vol] 11.0 mg/dL Normal 7.0-18.0 [facility] Comment on above: Performed By: #### C MP #### [facility] [address] [place] [address] Dr. Ramses Dumas Urea nitrogen/Creatinine [Mass ratio] 12.0 mg/mg Normal [facility] Comment on above: Performed By: #### C MP #### [facility] [address] [place] [address] Dr. Ramses Dumas URINE MICROSCOPIC ONLYon BACTERIA MODERATE Abnormal NONE SEEN [facility] Comment on above: Performed By: #### U KJ 24 #### [facility] [address] [place] [address] Dr. Ramses Dumas Bacteria identified Cx Nom (U) INDICATED Normal [facility] Comment on above: Performed By: #### U KJ 24 #### [facility] [address] [place] [address] Dr. Ramses Dmuas CAST NONE SEEN Normal NONE SEEN [facility] Comment on above: Performed By: #### U KJ 24 #### [facility] [address] [place] [address] Dr. Ramses Dumas Crystals LM Nom (Urine sed) NONE SEEN Normal NONE SEEN [facility] Comment on above: Performed By: #### U KJ 24 #### [facility] [address] [place] [address] Dr. Ramses uDmas Epithelial cells LM Ql (Urine sed) RARE Normal NONE SEEN /RARE [facility] Comment on above: Performed By: #### U KJ 24 #### [facility] [address] [place] [address] Dr. Ramses Dumas MUCOUS NONE SEEN Normal NONE SEEN [facility] Comment on above: Performed By: #### U KJ 24 #### [facility] [address] [place] [address] Dr. Ramses Dumas RBC 20-50 Abnormal 0-2 [facility] Comment on above: Performed By: #### U KJ 24 #### [facility] [address] [place] [address] Dr. Ramses Dumas WBC 5-10 Abnormal NONE SEEN [facility] Comment on above: Performed By: #### U KJ 24 #### [facility] [address] [place] [address] Dr. Ramses Dumas CULTURE BLOODon 08-25-2022 Microscopic [...] F Tetracycline >=16 R F Normal [facility] Comment on above: Performed By: #### B LDCX2 #### [facility] [address] [place] [address] Dr. Ramses Dumas Microscopic examination of blood, [...] F Tetracycline >=16 R F Normal [facility] Comment on above: Performed By: #### C BC #### [facility] [address] [place] [address] Dr. Ramses Dumas CBC AUTO DIFFon 08-24-2022 BASO # 0.0 103/ul Normal 0.0-0.1 [facility] Comment on above: Performed By: #### C BC #### [facility] [address] [place] [address] Dr. Ramses Dumas Basophils/100 WBC (Bld) 0.1 % Critically low 0.2-2.0 [facility] Comment on above: Performed By: #### C BC #### [facility] [address] [place] [address] Dr. Ramses Dumas EO # 0.0 103/ul Normal 0.0-0.7 [facility] Comment on above: Performed By: #### C BC #### [facility] [address] [place] [address] Dr. Ramses Dumas Eosinophils/100 WBC (Bld) 0.0 % Critically low 0.9-7.0 [facility] Comment on above: Performed By: #### C BC #### [facility] [address] [place] [address] Dr. Ramses Dumas Erythrocyte distribution width (RBC) [Ratio] 13.5 % Normal 11.0-15.0 [facility] Comment on above: Performed By: #### C BC #### [facility] [address] [place] [address] Dr. Ramses Dumas Hematocrit (Bld) [Volume fraction] 33.0 % Critically low 36.0-48.0 [facility] Comment on above: Performed By: #### C BC #### [facility] [address] [address] [address] Ramses Dumas Hemoglobin (Bld) [Mass/Vol] 10.7 g/dL Critically low 12.0-16.0 [facility] Comment on above: Performed By: #### C BC #### [facility] [address] [address] [address] Ramses Dumas IG # 0.04 10e3/ul Critically high 0.00-0.03 [facility] Comment on above: Performed By: #### C BC #### [facility] [address] [place] [address] Dr. Ramses Dumas IG % 0.4 % Normal 0.0-0.5 [facility] Comment on above: Performed By: #### C BC #### [facility] [address] [place] [address] Dr. Ramses Dumas LYMPH # 0.8 103/ul Critically low 1.2-3.[address] [facility] Comment on above: Performed By: #### C BC #### [facility] [address] [place] [address] Dr. Ramses Dumas Lymphocytes/100 WBC (Bld) 7.9 % Critically low 20.5-60.0 [facility] Comment on above: Performed By: #### C BC #### [facility] [address] [place] [address] Dr. Ramses Dumas MANUAL DIFF REQ NO Normal [facility] Comment on above: Performed By: #### C BC #### [facility] [address] [place] [address] Dr. Ramses Dumas MCH (RBC) [Entitic mass] 26.5 pg Critically low 26.7-34.0 [facility] Comment on above: Performed By: #### C BC #### [facility] [address] [place] [address] Dr. Ramses Dumas MCHC (RBC) [Mass/Vol] 32.4 g/dL Normal 29.9-35.2 [facility] Comment on above: Performed By: #### C BC #### [facility] [address] [place] [address] Dr. Ramses Dumas MCV (RBC) [Entitic vol] 81.7 fL Normal 81.0-99.0 [facility] Comment on above: Performed By: #### C BC #### [facility] [address] [place] [address] Dr. Ramses Dumas MONO # 0.6 103/ul Normal 0.3-0.8 [facility] Comment on above: Performed By: #### C BC #### [facility] [address] [place] [address] Dr. Ramses Dumas Monocytes/100 WBC (Bld) 6.3 % Normal 1.7-12.0 [facility] Comment on above: Performed By: #### C BC #### [facility] [address] [place] [address] Dr. Ramses Dumas NEUT # 8.6 103/ul Critically high 1.4-6.[address] [facility] Comment on above: Performed By: #### C BC #### [facility] [address] [place] [address] Dr. Ramses Dumas Neutrophils/100 WBC (Bld) 85.3 % Critically high 43.0-75.0 [facility] Comment on above: Performed By: #### C BC #### [facility] [address] [place] [address] Dr. Ramses Dumas Platelet mean volume (Bld) [Entitic vol] 9.1 fL Critically low 9.5-13.5 [facility] Comment on above: Performed By: #### C BC #### [facility] [address] [place] [address] Dr. Ramses Dumas PLT 248 103/ul Normal 150-450 [facility] Comment on above: Performed By: #### C BC #### [facility] [address] [place] [address] Dr. Ramses Dumas RBC 4.04 106/ul Critically low 4.20-5.[address] [facility] Comment on above: Performed By: #### C BC #### [facility] [address] [place] [address] Dr. Ramses Dumas WBC 10.1 103/ul Normal 4.0-11.0 [facility] Comment on above: Performed By: #### C BC #### [facility] [address] [place] [address] Dr. Ramses Dumas CULTURE URINEon 08-24-2022 CULTURE [...] S F Tetracycline >=16 R F Normal [facility] Comment on above: Performed By: #### U RCX #### [facility] [address] [place] [address] Dr. Ramses Dumas PROF 14(COMP METB)on 022 Albumin [Mass/Vol] 2.4 g/dL Critically low 3.4-5.0 [facility] Comment on above: Performed By: #### C VDTBH #### [facility] [address] [place] [address] Dr. Ramses Dumas Albumin/Globulin [Mass ratio] 0.7 {ratio} Normal [facility] Comment on above: Performed By: #### C VDTBH #### [facility] [address] [place] [address] Dr. Ramses Dumas ALP [Catalytic activity/Vol] 95 U/L Normal 46-116 [facility] Comment on above: Performed By: #### C VDTBH #### [facility] [address] [place] [address] Dr. Ramses Dumas ALT [Catalytic activity/Vol] 327 U/L Critically high 14-59 [facility] Comment on above: Performed By: #### C VDTBH #### [facility] [address] [place] [address] Dr. Ramses Dumas Anion gap [Moles/Vol] 8.7 mmol/L Normal [facility] Comment on above: Performed By: #### C VDTBH #### [facility] [address] [place] [address] Dr. Ramses Dumas AST [Catalytic activity/Vol] 165 U/L Critically high 15-37 [facility] Comment on above: Performed By: #### C VDTBH #### [facility] [address] [place] [address] Dr. Ramses Dumas Bilirubin [Mass/Vol] 0.4 mg/dL Normal 0.2-1.0 [facility] Comment on above: Performed By: #### C VDTBH #### [facility] [address] [place] [address] Dr. Ramses Dumas Calcium [Mass/Vol] 8.0 mg/dL Critically low 8.5-10.1 Th [facility] Comment on above: Performed By: #### C VDTBH #### [facility] [address] [place] [address] Dr. Ramses Dumas Chloride [Moles/Vol] 108 mmol/L Critically high 98-107 [facility] Comment on above: Performed By: #### C VDTBH #### [facility] [address] [place] [address] Dr. Ramses Dumas CO2 [Moles/Vol] 25.3 mmol/L Normal 21.0-32.0 [facility] Comment on above: Performed By: #### C VDTBH #### [facility] [address] [place] [address] Dr. Ramses Dumas Creatinine [Mass/Vol] 0.70 mg/dL Normal 0.55-1.02 [facility] Comment on above: Performed By: #### C VDTBH #### [facility] [address] [place] [address] Dr. Ramses Dumas EGFR-AF THAI >60 Normal >=60 [facility] Comment on above: Performed By: #### C VDTBH #### [facility] [address] [place] [address] Dr. Ramses Dumas EGFR-NON AF THAI >60 Normal >=60 [facility] Comment on above: Performed By: #### C VDTBH #### [facility] [address] [place] [address] Dr. Ramses Dumas Globulin (S) [Mass/Vol] 3.6 g/dL Normal [facility] Comment on above: Performed By: #### C VDTBH #### [facility] [address] [place] [address] Dr. Ramses Dumas Glucose [Mass/Vol] 160 mg/dL Critically high 74-106 T [facility] Comment on above: Performed By: #### C VDTBH #### [facility] [address] [place] [address] Dr. Ramses Dumas Potassium [Moles/Vol] 4.0 mmol/L Normal 3.5-5.1 [facility] Comment on above: Performed By: #### C VDTBH #### [facility] [address] [place] [address] Dr. Ramses Dumas Protein [Mass/Vol] 6.0 g/dL Critically low 6.4-8.2 Th [facility] Comment on above: Performed By: #### C VDTBH #### [facility] [address] [place] [address] Dr. Ramses Dumas Sodium [Moles/Vol] 138 mmol/L Normal 136-145 [facility] Comment on above: Performed By: #### C VDTBH #### [facility] [address] [place] [address] Dr. Ramses Dumas Urea nitrogen [Mass/Vol] 6.0 mg/dL Critically low 7.0-18.0 [facility] Comment on above: Performed By: #### C VDTBH #### [facility] [address] [place] [address] Dr. Ramses Dumas Urea nitrogen/Creatinine [Mass ratio] 8.6 mg/mg Normal [facility] Comment on above: Performed By: #### C VDTBH #### [facility] [address] [place] [address] Dr. Ramses Dumas CBC AUTO DIFFon 08-23-2022 BASO # 0.0 103/ul Normal 0.0-0.1 [facility] Comment on above: Performed By: #### U RCX #### [facility] [address] [place] [address] Dr. Ramses Dumas Basophils/100 WBC (Bld) 0.2 % Normal 0.2-2.0 [facility] Comment on above: Performed By: #### U RCX #### [facility] [address] [place] [address] Dr. Ramses Dumas EO # 0.0 103/ul Normal 0.0-0.7 [facility] Comment on above: Performed By: #### U RCX #### [facility] [address] [place] [address] Dr. Ramses Dumas Eosinophils/100 WBC (Bld) 0.1 % Critically low 0.9-7.0 [facility] Comment on above: Performed By: #### U RCX #### [facility] [address] [place] [address] Dr. Ramses Dumas Erythrocyte distribution width (RBC) [Ratio] 13.4 % Normal 11.0-15.0 [facility] Comment on above: Performed By: #### U RCX #### [facility] [address] [place] [address] Dr. Ramses Dumas Hematocrit (Bld) [Volume fraction] 34.1 % Critically low 36.0-48.0 [facility] Comment on above: Performed By: #### U RCX #### [facility] [address] [place] [address] Dr. Ramses Dumas Hemoglobin (Bld) [Mass/Vol] 10.9 g/dL Critically low 12.0-16.0 [facility] Comment on above: Performed By: #### U RCX #### [facility] [address] [place] [address] Dr. Ramses Dumas IG # 0.02 10e3/ul Normal 0.00-0.03 [facility] Comment on above: Performed By: #### U RCX #### [facility] [address] [address] [address] Ramses Dumas IG % 0.2 % Normal 0.0-0.5 [facility] Comment on above: Performed By: #### U RCX #### [facility] [address] [address] [address] Ramses Dumas LYMPH # 0.7 103/ul Critically low 1.2-3.8 [facility] Comment on above: Performed By: #### U RCX #### [facility] [address] [address] [address] Ramses Dumas Lymphocytes/100 WBC (Bld) 6.9 % Critically low 20.5-60.0 [facility] Comment on above: Performed By: #### U RCX #### [facility] [address] [address] [address] Ramses Dumas MANUAL DIFF REQ NO Normal [facility] Comment on above: Performed By: #### U RCX #### [facility] [address] [address] [address] Ramses Dumas MCH (RBC) [Entitic mass] 26.1 pg Critically low 26.7-34.0 [facility] Comment on above: Performed By: #### U RCX #### [facility] [address] [address] [address] Ramses Dumas MCHC (RBC) [Mass/Vol] 32.0 g/dL Normal 29.9-35.2 [facility] Comment on above: Performed By: #### U RCX #### [facility] [address] [address] [address] Ramses Dumas MCV (RBC) [Entitic vol] 81.8 fL Normal 81.0-99.0 [facility] Comment on above: Performed By: #### U RCX #### [facility] [address] [address] [address] Ramses Dumas MONO # 0.6 103/ul Normal 0.3-0.8 [facility] Comment on above: Performed By: #### U RCX #### [facility] [address] [address] [address] Ramses Dumas Monocytes/100 WBC (Bld) 5.9 % Normal 1.7-12.0 [facility] Comment on above: Performed By: #### U RCX #### [facility] [address] [address] [address] Ramses Dumas NEUT # 8.2 103/ul Critically high 1.4-6.5 [facility] Comment on above: Performed By: #### U RCX #### [facility] [address] [place] [address] Dr. Ramses Dumas Neutrophils/100 WBC (Bld) 86.7 % Critically high 43.0-75.0 [facility] Comment on above: Performed By: #### U RCX #### [facility] [address] [place] [address] Dr. Ramses Dmuas Platelet mean volume (Bld) [Entitic vol] 9.4 fL Critically low 9.5-13.5 [facility] Comment on above: Performed By: #### U RCX #### [facility] [address] [place] [address] Dr. Ramses Dumas PLT 235 103/ul Normal 150-450 [facility] Comment on above: Performed By: #### U RCX #### [facility] [address] [place] [address] Dr. Ramses Dumas RBC 4.17 106/ul Critically low 4.20-5.[address] [facility] Comment on above: Performed By: #### U RCX #### [facility] [address] [place] [address] Dr. Ramses Dumas WBC 9.5 103/ul Normal 4.0-11.0 [facility] Comment on above: Performed By: #### U RCX #### [facility] [address] [place] [address] Dr. Ramses Dumas PROF 14(COMP METB)on 022 Albumin [Mass/Vol] 2.6 g/dL Critically low 3.4-5.0 [facility] Comment on above: Performed By: #### U KJ 24 #### [facility] [address] [address] [address] Ramses Dumas Albumin/Globulin [Mass ratio] 0.8 {ratio} Normal [facility] Comment on above: Performed By: #### U KJ 24 #### [facility] [address] [address] [address] Ramses Dumas ALP [Catalytic activity/Vol] 82 U/L Normal 46-116 [facility] Comment on above: Performed By: #### U KJ 24 #### [facility] [address] [address] [address] Ramses Dumas ALT [Catalytic activity/Vol] 257 U/L Critically high 14-59 [facility] Comment on above: Performed By: #### U KJ 24 #### [facility] [address] [place] [address] Dr. Ramses Dumas Anion gap [Moles/Vol] 10.3 mmol/L Normal [facility] Comment on above: Performed By: #### U KJ 24 #### [facility] [address] [place] [address] Dr. Ramses Dumas AST [Catalytic activity/Vol] 196 U/L Critically high 15-37 [facility] Comment on above: Performed By: #### U KJ 24 #### [facility] [address] [place] [address] Dr. Ramses Dumas Bilirubin [Mass/Vol] 0.5 mg/dL Normal 0.2-1.0 [facility] Comment on above: Performed By: #### U KJ 24 #### [facility] [address] [place] [address] Dr. Ramses Dumas Calcium [Mass/Vol] 7.8 mg/dL Critically low 8.5-10.1 [facility] Comment on above: Performed By: #### U KJ 24 #### [facility] [address] [place] [address] Dr. Ramses Dumas Chloride [Moles/Vol] 104 mmol/L Normal 98-107 [facility] Comment on above: Performed By: #### U KJ 24 #### [facility] [address] [address] [address] Ramses Dumas CO2 [Moles/Vol] 24.4 mmol/L Normal 21.0-32.0 [facility] Comment on above: Performed By: #### U KJ 24 #### [facility] [address] [address] [address] Ramses Dumas Creatinine [Mass/Vol] 1.09 mg/dL Critically high 0.55-1.02 [facility] Comment on above: Performed By: #### U KJ 24 #### [facility] [address] [address] [address] Ramses Dumas EGFR-AF THAI >60 Normal >=60 [facility] Comment on above: Performed By: #### U KJ 24 #### [facility] [address] [address] [address] Ramses Dumas EGFR-NON AF THAI 59 mL/min/1.73m2 Critically low >=60 [facility] Comment on above: Performed By: #### U KJ 24 #### [facility] [address] [address] [address] Ramses Dumas Globulin (S) [Mass/Vol] 3.3 g/dL Normal [facility] Comment on above: Performed By: #### U KJ 24 #### [facility] [address] [address] [address] Ramses Dumas Glucose [Mass/Vol] 143 mg/dL Critically high 74-106 T [facility] Comment on above: Performed By: #### U KJ 24 #### [facility] [address] [address] [address] Ramses Dumas Potassium [Moles/Vol] 3.7 mmol/L Normal 3.5-5.1 [facility] Comment on above: Performed By: #### U KJ 24 #### [facility] [address] [address] [address] Ramses Dumas Protein [Mass/Vol] 5.9 g/dL Critically low 6.4-8.2 Th e [facility] Comment on above: Performed By: #### U KJ 24 #### [facility] [address] [place] [address] Dr. Ramses Dumas Sodium [Moles/Vol] 135 mmol/L Critically low 136-145 Th [facility] Comment on above: Performed By: #### U KJ 24 #### [facility] [address] [place] [address] Dr. Ramses Dumas Urea nitrogen [Mass/Vol] 10.0 mg/dL Normal 7.0-18.0 [facility] Comment on above: Performed By: #### U KJ 24 #### [facility] [address] [place] [address] Dr. Ramses Dumas Urea nitrogen/Creatinine [Mass ratio] 9.2 mg/mg Normal [facility] Comment on above: Performed By: #### U KJ 24 #### [facility] [address] [place] [address] Dr. Ramses Dumas BLOOD CULTURE ID PANELon A. baumannii Not detected Normal NOT DETECTED [facility] Comment on above: Performed By: #### C VDTBH #### [facility] [address] [place] [address] Dr. Ramses Dumas Bacteriodes fragilis Not detected Normal NOT DETECTED [facility] Comment on above: Performed By: #### C VDTBH #### [facility] [address] [place] [address] Dr. Ramses Dumas BCID CONTROLS PASSED Normal [facility] Comment on above: Performed By: #### C VDTBH #### [facility] [address] [place] [address] Dr. Ramses Dumas BCIDBTHD BLOOD CULTURE BOTTLE INFORMATION Normal [facility] Comment on above: Performed By: #### C VDTBH #### [facility] [address] [place] [address] Dr. Ramses Dumas BCIDHD1 ANTIMICROBIAL RESISTANCE GENES Normal [facility] Comment on above: Performed By: #### C VDTBH #### [facility] [address] [place] [address] Dr. Ramses Dumas BCIDHD2 SEE BELOW [facility] Comment on above: Result Comment: Note : Antimicrobial resitance can occur via multiple mechanisms. A Not Detected result for the [employer] antomicrobial resistance gene assays does not indicate antimicrobial susceptibility. Subculturing is required for species identification and susceptibility testing of isolates. Performed By: #### C VDTBH #### [facility] [address] [place] [address] Dr. Ramses Dumas BCIDHD3 Positive Normal [facility] Comment on above: Performed By: #### C VDTBH #### [facility] [address] [place] [address] Dr. Ramses Dumas BCIDHD4 Negative Normal [facility] Comment on above: Performed By: #### C VDTBH #### [facility] [address] [place] [address] Dr. Ramses Dumas BCIDHD5 YEAST Normal [facility] Comment on above: Performed By: #### C VDTBH #### [facility] [address] [place] [address] Dr. Ramses Dumas Bottle Set: Set 1 Normal [facility] Comment on above: Performed By: #### C VDTBH #### [facility] [address] [place] [address] Dr. Ramses Dumas Bottle: Pediatric Normal [facility] Comment on above: Performed By: #### C VDTBH #### [facility] [address] [place] [address] Dr. Ramses Dumas C. neoformans/gattii Not detected Normal NOT DETECTED [facility] Comment on above: Performed By: #### C VDTBH #### [facility] [address] [place] [address] Dr. Ramses Dumas Kim albicans Not detected Normal NOT DETECTED [facility] Comment on above: Performed By: #### C VDTBH #### [facility] [address] [place] [address] Dr. Ramses Dumas Kim auris Not detected Normal NOT DETECTED [facility] Comment on above: Performed By: #### C VDTBH #### [facility] [address] [place] [address] Dr. Ramses Dumas Kim glabrata Not detected Normal NOT DETECTED [facility] Comment on above: Performed By: #### C VDTBH #### [facility] [address] [address] [address] Ramses Dumas Kim Krusei Not detected Normal NOT DETECTED [facility] Comment on above: Performed By: #### C VDTBH #### [facility] [address] [place] [address] Dr. Ramses Dumas Kim Parapsilosis Not detected Normal NOT DETECTED [facility] Comment on above: Performed By: #### C VDTBH #### [facility] [address] [address] [address] Ramses Dumas Kim Tropicalis Not detected Normal NOT DETECTED [facility] Comment on above: Performed By: #### C VDTBH #### [facility] [address] [place] [address] Dr. Ramses Dumas CTX-M Resistant Gene Not Applicable Normal NOT DETECTE D [facility] Comment on above: Performed By: #### C VDTBH #### [facility] [address] [place] [address] Dr. Ramses Dumas E. Cloacae complex Not detected Normal NOT DETECTED [facility] Comment on above: Performed By: #### C VDTBH #### [facility] [address] [place] [address] Dr. Ramses Dumas E. faecalis Not detected Normal NOT DETECTED [facility] Comment on above: Performed By: #### C VDTBH #### [facility] [address] [place] [address] Dr. Ramses Dumas E. faecium Not detected Normal NOT DETECTED [facility] Comment on above: Performed By: #### C VDTBH #### [facility] [address] [place] [address] Dr. Ramses Dumas Enterobacteriaceae Not detected Normal NOT DETECTED [facility] Comment on above: Performed By: #### C VDTBH #### [facility] [address] [place] [address] Dr. Ramses Dumas Escherichia coli Not detected Normal NOT DETECTED [facility] Comment on above: Performed By: #### C VDTBH #### [facility] [address] [place] [address] Dr. Ramses Dumas H. influenzae Not detected Normal NOT DETECTED [facility] Comment on above: Performed By: #### C VDTBH #### [facility] [address] [place] [address] Dr. Ramses Dumas IMP Resistant Gene Not Applicable Normal NOT DETECTED [facility] Comment on above: Performed By: #### C VDTBH #### [facility] [address] [place] [address] Dr. Ramses Dumas K. oxytoca Not detected Normal NOT DETECTED [facility] Comment on above: Performed By: #### C VDTBH #### [facility] [address] [place] [address] Dr. Ramses Dumas K. pneumoniae Not detected Normal NOT DETECTED [facility] Comment on above: Performed By: #### C VDTBH #### [facility] [address] [place] [address] Dr. Ramses Dumas Klebsiella aerogenes Not detected Normal NOT DETECTED [facility] Comment on above: Performed By: #### C VDTBH #### [facility] [address] [place] [address] Dr. Ramses Dumas KPC Resistant Gene Not detected Normal NOT DETECTED [facility] Comment on above: Performed By: #### C VDTBH #### [facility] [address] [place] [address] Dr. Ramses Dumas List. monocytogenes Not detected Normal NOT DETECTED [facility] Comment on above: Performed By: #### C VDTBH #### [facility] [address] [place] [address] Dr. Ramses Dumas Mcr-1 Resistant Gene Not Applicable Normal NOT DETECTE D [facility] Comment on above: Performed By: #### C VDTBH #### [facility] [address] [place] [address] Dr. Ramses Dumas mecA/C Not Applicable Normal NOT DETECTED [facility] Comment on above: Performed By: #### C VDTBH #### [facility] [address] [place] [address] Dr. Ramses Dumas mecA/C MREJ Not Applicable Normal NOT DETECTED [facility] Comment on above: Performed By: #### C VDTBH #### [facility] [address] [place] [address] Dr. Ramses Dumas N. meningitidis Not detected Normal NOT DETECTED [facility] Comment on above: Performed By: #### C VDTBH #### [facility] [address] [place] [address] Dr. Ramses Dumas NDM Resistant Gene Not Applicable Normal NOT DETECTED [facility] Comment on above: Performed By: #### C VDTBH #### [facility] [address] [place] [address] Dr. Ramses Dumas Oxa-48-like Not Applicable Normal NOT DETECTED [facility] Comment on above: Performed By: #### C VDTBH #### [facility] [address] [place] [address] Dr. Ramses Dumas Proteus Not detected Normal NOT DETECTED [facility] Comment on above: Performed By: #### C VDTBH #### [facility] [address] [place] [address] Dr. Ramses Dumas Pseud. aeruginosa Not detected Normal NOT DETECTED [facility] Comment on above: Performed By: #### C VDTBH #### [facility] [address] [place] [address] Dr. Ramses Dumas S. maltophilia Not detected Normal NOT DETECTED [facility] Comment on above: Performed By: #### C VDTBH #### [facility] [address] [place] [address] Dr. Ramses Dumas Salmonella Not detected Normal NOT DETECTED [facility] Comment on above: Performed By: #### C VDTBH #### [facility] [address] [place] [address] Dr. Ramses Dumas Seratia marcescens Not detected Normal NOT DETECTED [facility] Comment on above: Performed By: #### C VDTBH #### [facility] [address] [place] [address] Dr. Ramses Dumas Site: unknown/not given Normal [facility] Comment on above: Performed By: #### C VDTBH #### [facility] [address] [place] [address] Dr. Ramses Dumas Staph. aureus Not detected Normal NOT DETECTED [facility] Comment on above: Performed By: #### C VDTBH #### [facility] [address] [place] [address] Dr. Ramses Dumas Staph. epidermidis Not detected Normal NOT DETECTED [facility] Comment on above: Performed By: #### C VDTBH #### [facility] [address] [place] [address] Dr. Ramses Dumas Stapphillip. lugdunensis Not detected Normal NOT DETECTED [facility] Comment on above: Performed By: #### C VDTBH #### [facility] [address] [place] [address] Dr. Ramses Dumas Staphylococcus Not detected Normal NOT DETECTED [facility] Comment on above: Performed By: #### C VDTBH #### [facility] [address] [place] [address] Dr. Ramses Dumas Strep. agalactiae Detected Critically abnormal NOT DETECTED [facility] Comment on above: Performed By: #### C VDTBH #### [facility] [address] [place] [address] Dr. Ramses Dumas Strep. pneumoniae Not detected Normal NOT DETECTED [facility] Comment on above: Performed By: #### C VDTBH #### [facility] [address] [place] [address] Dr. Ramses Dumas Strep. pyogenes Not detected Normal NOT DETECTED [facility] Comment on above: Performed By: #### C VDTBH #### [facility] [address] [place] [address] Dr. Ramses Dumas Streptococcus Detected Critically abnormal NOT DETECTED [facility] Comment on above: Performed By: #### C VDTBH #### [facility] [address] [place] [address] Dr. Ramses Dumas Efrain/B Resist. Gene Not detected Normal NOT DETECTED [facility] Comment on above: Performed By: #### C VDTBH #### [facility] [address] [place] [address] Dr. Ramses Dumas VIM Resistant Gene Not Applicable Normal NOT DETECTED [facility] Comment on above: Performed By: #### C VDTBH #### [facility] [address] [place] [address] Dr. Ramses Dumas CBC AUTO DIFFon 08-22-2022 BASO # 0.1 103/ul Normal 0.0-0.1 [facility] Comment on above: Performed By: #### U KJ 24 #### [facility] [address] [place] [address] Dr. Ramses Dumas Basophils/100 WBC (Bld) 0.7 % Normal 0.2-2.0 [facility] Comment on above: Performed By: #### U KJ 24 #### [facility] Laboratory [address] [place] [address] Dr. Ramses Dumas EO # 0.1 103/ul Normal 0.0-0.7 [facility] Comment on above: Performed By: #### U KJ 24 #### [facility] [address] [place] [address] Dr. Ramses Dumas Eosinophils/100 WBC (Bld) 1.7 % Normal 0.9-7.0 [facility] Comment on above: Performed By: #### U KJ 24 #### [facility] [address] [place] [address] Dr. Ramses Dumas Erythrocyte distribution width (RBC) [Ratio] 13.2 % Normal 11.0-15.0 [facility] Comment on above: Performed By: #### U KJ 24 #### [facility] [address] [place] [address] Dr. Ramses Dumas Hematocrit (Bld) [Volume fraction] 39.8 % Normal 36.0-48.0 [facility] Comment on above: Performed By: #### U KJ 24 #### [facility] [address] [place] [address] Dr. Ramses Dumas Hemoglobin (Bld) [Mass/Vol] 12.9 g/dL Normal 12.0-16.0 [facility] Comment on above: Performed By: #### U KJ 24 #### [facility] [address] [place] [address] Dr. Ramses Dumas IG # 0.02 10e3/ul Normal 0.00-0.03 [facility] Comment on above: Performed By: #### U KJ 24 #### [facility] [address] [place] [address] Dr. Ramses Dumas IG % 0.2 % Normal 0.0-0.5 [facility] Comment on above: Performed By: #### U KJ 24 #### [facility] [address] [place] [address] Dr. Ramses Dumas LYMPH # 3.2 103/ul Normal 1.2-3.8 [facility] Comment on above: Performed By: #### U KJ 24 #### [facility] [address] [place] [address] Dr. Ramses Dumas Lymphocytes/100 WBC (Bld) 40.0 % Normal 20.5-60.0 [facility] Comment on above: Performed By: #### U KJ 24 #### [facility] [address] [place] [address] Dr. Ramses Dumas MANUAL DIFF REQ NO Normal [facility] Comment on above: Performed By: #### U KJ 24 #### [facility] [address] [place] [address] Dr. Ramses Dumas MCH (RBC) [Entitic mass] 26.6 pg Critically low 26.7-34.0 [facility] Comment on above: Performed By: #### U KJ 24 #### [facility] [address] [place] [address] Dr. Ramses Dumas MCHC (RBC) [Mass/Vol] 32.4 g/dL Normal 29.9-35.2 [facility] Comment on above: Performed By: #### U KJ 24 #### [facility] [address] [place] [address] Dr. Ramses Dumas MCV (RBC) [Entitic vol] 82.1 fL Normal 81.0-99.0 [facility] Comment on above: Performed By: #### U KJ 24 #### [facility] [address] [place] [address] Dr. Ramses Dumas MONO # 0.6 103/ul Normal 0.3-0.8 [facility] Comment on above: Performed By: #### U KJ 24 #### [facility] [address] [place] [address] Dr. Ramses Dumas Monocytes/100 WBC (Bld) 7.5 % Normal 1.7-12.0 [facility] Comment on above: Performed By: #### U KJ 24 #### [facility] [address] [place] [address] Dr. Ramses Dumas NEUT # 4.0 103/ul Normal 1.4-6.5 [facility] Comment on above: Performed By: #### U KJ 24 #### [facility] [address] [place] [address] Dr. Ramses Dumas Neutrophils/100 WBC (Bld) 49.9 % Normal 43.0-75.0 [facility] Comment on above: Performed By: #### U KJ 24 #### [facility] [address] [place] [address] Dr. Ramses Dumas Platelet mean volume (Bld) [Entitic vol] 9.3 fL Critically low 9.5-13.5 [facility] Comment on above: Performed By: #### U KJ 24 #### [facility] [address] [place] [address] Dr. Ramses Dumas PLT 354 103/ul Normal 150-450 [facility] Comment on above: Performed By: #### U KJ 24 #### [facility] [address] [place] [address] Dr. Ramses Dumas RBC 4.85 106/ul Normal 4.20-5.40 [facility] Comment on above: Performed By: #### U KJ 24 #### [facility] [address] [place] [address] Dr. Ramses Dumas WBC 8.1 103/ul Normal 4.0-11.0 [facility] Comment on above: Performed By: #### U KJ 24 #### [facility] [address] [address] [address] ABD/PELVIS WO CONon [...] KESHIA IRIZARRY Date: 2022-08-22 07:04 Normal [facility] Covid-19 PCR (CVDTB)on SARS-CoV-2 (COVID-19) RNA FRANCESCA+probe Ql (Unsp spec) Not detected Normal NOT DETECTED [facility] Comment on above: Result Comment: When [...] for this test is supported by the [place] of [employer] and Human Service's declaration that [...] used). Performed By: #### C MP #### [facility] [address] [place] [address] Dr. Ramses Dumas ER URINE PROFILEon 2 Bilirubin Ql (U) Negative Normal NEGATIVE [facility] Comment on above: Performed By: #### U RCX #### [facility] [address] [place] [address] Dr. Ramses Dumas Clarity (U) CLEAR Normal CLEAR [facility] Comment on above: Performed By: #### U RCX #### [facility] [address] [place] [address] Dr. Ramses Dumas Color (U) LT. YELLOW Normal YELLOW [facility] Comment on above: Performed By: #### U RCX #### [facility] [address] [place] [address] Dr. Ramses DELEON A micrscopic examination will be performed if indicated. Normal [facility] Comment on above: Performed By: #### U RCX #### [facility] [address] [place] [address] Dr. Ramses Dumas Glucose Ql (U) Negative Normal NEGATIVE [facility] Comment on above: Performed By: #### U RCX #### [facility] [address] [place] [address] Dr. Ramses Dumas Hemoglobin Ql (U) SMALL Abnormal NEGATIVE [facility] Comment on above: Performed By: #### U RCX #### [facility] [address] [place] [address] Dr. Ramses Dumas Ketones Ql (U) Negative Normal NEGATIVE [facility] Comment on above: Performed By: #### U RCX #### [facility] [address] [place] [address] Dr. Ramses Dumas LEUKOCYTES SMALL Abnormal NEGATIVE [facility] Comment on above: Performed By: #### U RCX #### [facility] [address] [place] [address] Dr. Ramses Dumas Nitrite Ql (U) Negative Normal NEGATIVE [facility] Comment on above: Performed By: #### U RCX #### [facility] [address] [place] [address] Dr. Ramses Dumas pH (U) 7.0 [pH] Normal 5-9 [facility] Comment on above: Performed By: #### U RCX #### [facility] [address] [place] [address] Dr. Ramses Dumas Protein (U) [Mass/Vol] 30 mg/dL Abnormal NEGATIVE/ TRACE [facility] Comment on above: Performed By: #### U RCX #### [facility] [address] [place] [address] Dr. Ramses Dumas SPEC GRAVITY 1.020 Normal 1.005-<=1.02 5 [facility] Comment on above: Performed By: #### U RCX #### [facility] [address] [place] [address] Dr. Ramses Dumas UR MICRO IND INDICATED Normal [facility] Comment on above: Performed By: #### U RCX #### [facility] [address] [place] [address] Dr. Ramses Dumas Urobilinogen Qn (U) 0.2 {Lucero'U}/dL Normal 0.2 - 1. 0 [facility] Comment on above: Performed By: #### U RCX #### [facility] [address] [place] [address] Dr. Ramses Dumas LACTATE/LACTIC ACIDon 2021 Lactate [Moles/Vol] 2.3 mmol/L Critically high 0.4-1.9 [facility] Comment on above: Performed By: #### U RCX #### [facility] [address] [place] [address] Dr. Ramses Dumas URon 08-22-2022 , QUAL Negative Normal NEGATIVE [facility] Comment on above: Performed By: #### U RCX #### [facility] [address] [address] [address] Ramses Dumas PROF 14(COMP METB)on 022 Albumin [Mass/Vol] 3.5 g/dL Normal 3.4-5.0 [facility] Comment on above: Performed By: #### U RCX #### [facility] [address] [place] [address] Dr. Ramses Dumas Albumin/Globulin [Mass ratio] 0.9 {ratio} Normal [facility] Comment on above: Performed By: #### U RCX #### [facility] [address] [place] [address] Dr. Ramses Dumas ALP [Catalytic activity/Vol] 92 U/L Normal 46-116 [facility] Comment on above: Performed By: #### U RCX #### [facility] [address] [place] [address] Dr. Ramses Dumas ALT [Catalytic activity/Vol] 139 U/L Critically high 14-59 [facility] Comment on above: Performed By: #### U RCX #### [facility] [address] [place] [address] Dr. Ramses Dumas Anion gap [Moles/Vol] 10.2 mmol/L Normal [facility] Comment on above: Performed By: #### U RCX #### [facility] [address] [place] [address] Dr. Ramses Dumas AST [Catalytic activity/Vol] 112 U/L Critically high 15-37 [facility] Comment on above: Performed By: #### U RCX #### [facility] [address] [place] [address] Dr. Ramses Dumas Bilirubin [Mass/Vol] 0.2 mg/dL Normal 0.2-1.0 [facility] Comment on above: Performed By: #### U RCX #### [facility] [address] [place] [address] Dr. Ramses Dumas Calcium [Mass/Vol] 8.8 mg/dL Normal 8.5-10.1 [facility] Comment on above: Performed By: #### U RCX #### [facility] [address] [address] [address] Ramses Dumas Chloride [Moles/Vol] 105 mmol/L Normal 98-107 [facility] Comment on above: Performed By: #### U RCX #### [facility] [address] [address] [address] Ramses Dumas CO2 [Moles/Vol] 26.3 mmol/L Normal 21.0-32.0 [facility] Comment on above: Performed By: #### U RCX #### [facility] [address] [place] [address] Dr. Ramses Dumas Creatinine [Mass/Vol] 0.95 mg/dL Normal 0.55-1.02 [facility] Comment on above: Performed By: #### U RCX #### [facility] [address] [place] [address] Dr. Ramses Dumas EGFR-AF THAI >60 Normal >=60 [facility] Comment on above: Performed By: #### U RCX #### [facility] [address] [place] [address] Dr. Ramses Dumas EGFR-NON AF THAI >60 Normal >=60 [facility] Comment on above: Performed By: #### U RCX #### [facility] [address] [place] [address] Dr. Ramses Dumas Globulin (S) [Mass/Vol] 3.9 g/dL Normal [facility] Comment on above: Performed By: #### U RCX #### [facility] [address] [place] [address] Dr. Ramses Dumas Glucose [Mass/Vol] 137 mg/dL Critically high 74-106 [facility] Comment on above: Performed By: #### U RCX #### [facility] [address] [place] [address] Dr. Ramses Dumas Potassium [Moles/Vol] 3.5 mmol/L Normal 3.5-5.1 [facility] Comment on above: Performed By: #### U RCX #### [facility] [address] [place] [address] Dr. Ramses Dumas Protein [Mass/Vol] 7.4 g/dL Normal 6.4-8.2 [facility] Comment on above: Performed By: #### U RCX #### [facility] [address] [place] [address] Dr. Ramses Dumas Sodium [Moles/Vol] 138 mmol/L Normal 136-145 [facility] Comment on above: Performed By: #### U RCX #### [facility] [address] [place] [address] Dr. Ramses Dumas Urea nitrogen [Mass/Vol] 11.0 mg/dL Normal 7.0-18.0 [facility] Comment on above: Performed By: #### U RCX #### [facility] [address] [place] [address] Dr. Ramses Dumas Urea nitrogen/Creatinine [Mass ratio] 11.6 mg/mg Normal [facility] Comment on above: Performed By: #### U RCX #### [facility] [address] [place] [address] Dr. Ramses Dumas URINE MICROSCOPIC ONLYon BACTERIA LARGE Abnormal NONE SEEN [facility] Comment on above: Performed By: #### U RCX #### [facility] [address] [place] [address] Dr. Ramses Dumas Bacteria identified Cx Nom (U) CX ALREADY ORDERED Normal [facility] Comment on above: Performed By: #### U RCX #### [facility] [address] [place] [address] Dr. Ramses Dumas CAST NONE SEEN Normal NONE SEEN [facility] Comment on above: Performed By: #### U RCX #### [facility] [address] [place] [address] Dr. Ramess Dumas Crystals LM Nom (Urine sed) NONE SEEN Normal NONE SEEN [facility] Comment on above: Performed By: #### U RCX #### [facility] [address] [place] [address] Dr. Ramses Dumas Epithelial cells LM Ql (Urine sed) MANY Abnormal NONE SEEN /RARE [facility] Comment on above: Performed By: #### U RCX #### [facility] [address] [place] [address] Dr. Ramses Dumas MUCOUS NONE SEEN Normal NONE SEEN [facility] Comment on above: Performed By: #### U RCX #### [facility] [address] [place] [address] Dr. Ramses Dumas RBC 5-10 Abnormal 0-2 [facility] Comment on above: Performed By: #### U RCX #### [facility] [address] [place] [address] Dr. Ramses Dumas WBC 50-75 Abnormal NONE SEEN [facility] Comment on above: Performed By: #### U RCX #### [facility] [address] [place] [address] Dr. Ramses Dumas CULTURE URINEon 08-15-2022 CULTURE [...] F Tetracycline >=16 R F Normal [facility] Comment on above: Performed By: #### U RCX #### [facility] [address] [place] [address] Dr. Ramses Dumas ACETAMINOPHENon 08-13-2022 Acetaminophen [Mass/Vol] ug/mL Critically low 10.0-30.0 [facility] Comment on above: Performed By: #### U RCX #### [facility] [address] [place] [address] Dr. Ramses Dumas CBC AUTO DIFFon 08-13-2022 BASO # 0.1 103/ul Normal 0.0-0.1 [facility] Comment on above: Performed By: #### C VDTBH #### [facility] [address] [place] [address] Dr. Ramses Dumas Basophils/100 WBC (Bld) 0.8 % Normal 0.2-2.0 [facility] Comment on above: Performed By: #### C VDTBH #### [facility] [address] [place] [address] Dr. Ramses Dumas EO # 0.1 103/ul Normal 0.0-0.7 [facility] Comment on above: Performed By: #### C VDTBH #### [facility] [address] [place] [address] Dr. Ramses Dumas Eosinophils/100 WBC (Bld) 1.6 % Normal 0.9-7.0 [facility] Comment on above: Performed By: #### C VDTBH #### [facility] [address] [place] [address] Dr. Ramses Dumas Erythrocyte distribution width (RBC) [Ratio] 13.3 % Normal 11.0-15.0 [facility] Comment on above: Performed By: #### C VDTBH #### [facility] [address] [place] [address] Dr. Ramses Dumas Hematocrit (Bld) [Volume fraction] 40.6 % Normal 36.0-48.0 [facility] Comment on above: Performed By: #### C VDTBH #### [facility] [address] [place] [address] Dr. Ramses Dumas Hemoglobin (Bld) [Mass/Vol] 13.2 g/dL Normal 12.0-16.0 [facility] Comment on above: Performed By: #### C VDTBH #### [facility] [address] [place] [address] Dr. Ramses Dumas IG # 0.01 10e3/ul Normal 0.00-0.03 [facility] Comment on above: Performed By: #### C VDTBH #### [facility] [address] [place] [address] Dr. Ramses Dumas IG % 0.2 % Normal 0.0-0.5 [facility] Comment on above: Performed By: #### C VDTBH #### [facility] [address] [place] [address] Dr. Ramses Dumas LYMPH # 2.4 103/ul Normal 1.2-3.8 [facility] Comment on above: Performed By: #### C VDTBH #### [facility] [address] [place] [address] Dr. Ramses Dumas Lymphocytes/100 WBC (Bld) 37.7 % Normal 20.5-60.0 [facility] Comment on above: Performed By: #### C VDTBH #### [facility] [address] [place] [address] Dr. Ramses Dumas MANUAL DIFF REQ NO Normal [facility] Comment on above: Performed By: #### C VDTBH #### [facility] [address] [place] [address] Dr. Ramses Dumas MCH (RBC) [Entitic mass] 26.7 pg Normal 26.7-34.0 [facility] Comment on above: Performed By: #### C VDTBH #### [facility] [address] [place] [address] Dr. Ramses Dumas MCHC (RBC) [Mass/Vol] 32.5 g/dL Normal 29.9-35.2 [facility] Comment on above: Performed By: #### C VDTBH #### [facility] [address] [place] [address] Dr. Ramses Dumas MCV (RBC) [Entitic vol] 82.0 fL Normal 81.0-99.0 [facility] Comment on above: Performed By: #### C VDTBH #### [facility] [address] [place] [address] Dr. Ramses Dumas MONO # 0.6 103/ul Normal 0.3-0.8 [facility] Comment on above: Performed By: #### C VDTBH #### [facility] [address] [place] [address] Dr. Ramses Dumas Monocytes/100 WBC (Bld) 8.6 % Normal 1.7-12.0 [facility] Comment on above: Performed By: #### C VDTBH #### [facility] [address] [place] [address] Dr. Ramses Dumas NEUT # 3.3 103/ul Normal 1.4-6.5 [facility] Comment on above: Performed By: #### C VDTBH #### [facility] [address] [place] [address] Dr. Ramses Dumas Neutrophils/100 WBC (Bld) 51.1 % Normal 43.0-75.0 [facility] Comment on above: Performed By: #### C VDTBH #### [facility] [address] [place] [address] Dr. Ramses Dumas Platelet mean volume (Bld) [Entitic vol] 8.7 fL Critically low 9.5-13.5 [facility] Comment on above: Performed By: #### C VDTBH #### [facility] [address] [place] [address] Dr. Ramses Dumas PLT 409 103/ul Normal 150-450 [facility] Comment on above: Performed By: #### C VDTBH #### [facility] [address] [place] [address] Dr. Ramses Dumas RBC 4.95 106/ul Normal 4.20-5.40 [facility] Comment on above: Performed By: #### C VDTBH #### [facility] [address] [place] [address] Dr. Ramses Dumas WBC 6.4 103/ul Normal 4.0-11.0 [facility] Comment on above: Performed By: #### C VDTBH #### [facility] [address] [place] [address] Dr. Ramses Dumas Covid-19 PCR ([facility])on 07-20 SARS-CoV-2 (COVID-19) RNA FRANCESCA+probe Ql (Unsp spec) Not detected Normal NOT DETECTED [facility] Comment on above: Result Comment: When [...] for this test is supported by the [place] [employer]'s declaration that [...] used). Performed By: #### C VDTB #### [facility] [address] [place] [address] Dr. Ramses Dumas DRUG SCREEN RAPID (URINE)on 08-13-2022 AMP Negative Normal NEGATIVE [facility] Comment on above: Performed By: #### C BC #### [facility] [address] [place] [address] Dr. Ramses Dumas BAR Negative Normal NEGATIVE [facility] Comment on above: Performed By: #### C BC #### [facility] [address] [place] [address] Dr. Ramses Dumas BUP Negative Normal NEGATIVE [facility] Comment on above: Performed By: #### C BC #### [facility] [address] [place] [address] Dr. Ramses Dumas BZO Negative Normal NEGATIVE [facility] Comment on above: Performed By: #### C BC #### [facility] [address] [place] [address] Dr. Ramses Dumas ODILIA Negative Normal NEGATIVE [facility] Comment on above: Performed By: #### C BC #### [facility] [address] [place] [address] Dr. Ramses Dumas CUT-OFFS SEE BELOW Normal [facility] Comment on above: Result Comment: AMP [...] ng/mL Performed By: #### C BC #### [facility] [address] [place] [address] Dr. Ramses Dumas DRUG CUT HEADER DRUG CLASS TEST SYSTEM CUT-OFF CONCENTRATIONS ARE FOLLOWS: Normal [facility] Comment on above: Performed By: #### C BC #### [facility] [address] [place] [address] Dr. Ramses Dumas mAMP Negative Normal NEGATIVE [facility] Comment on above: Performed By: #### C BC #### [facility] [address] [place] [address] Dr. Ramses Dumas MTD Negative Normal NEGATIVE [facility] Comment on above: Performed By: #### C BC #### [facility] [address] [place] [address] Dr. Ramses Dumas OPI Negative Normal NEGATIVE [facility] Comment on above: Performed By: #### C BC #### [facility] [address] [place] [address] Dr. Ramses Dumas OXY Negative Normal NEGATIVE [facility] Comment on above: Performed By: #### C BC #### [facility] [address] [place] [address] Dr. Ramses Dumas PCP Negative Normal NEGATIVE [facility] Comment on above: Performed By: #### C BC #### [facility] [address] [place] [address] Dr. Ramses Dumas PPX Negative Normal NEGATIVE [facility] Comment on above: Performed By: #### C BC #### [facility] [address] [place] [address] Dr. Ramses Dumas TCA Negative Normal NEGATIVE [facility] Comment on above: Performed By: #### C BC #### [facility] [address] [address] [address] Ramses Dumas THC Negative Normal NEGATIVE [facility] Comment on above: Performed By: #### C BC #### [facility] [address] [place] [address] Dr. Ramses Dumas ER URINE PROFILEon 2 Bilirubin Ql (U) Negative Normal NEGATIVE [facility] Comment on above: Performed By: #### C BC #### [facility] [address] [address] [address] Ramses Dumas Clarity (U) CLEAR Normal CLEAR [facility] Comment on above: Performed By: #### C BC #### [facility] [address] [place] [address] Dr. Ramses Dumas Color (U) LT. YELLOW Normal YELLOW [facility] Comment on above: Performed By: #### C BC #### [facility] [address] [place] [address] Dr. Ramses Dumas ERUCARLOS ENRIQUE A micrscopic examination will be performed if indicated. Normal [facility] Comment on above: Performed By: #### C BC #### [facility] [address] [place] [address] Dr. Ramses Dumas Glucose Ql (U) Negative Normal NEGATIVE [facility] Comment on above: Performed By: #### C BC #### [facility] [address] [address] [address] Ramses Dumas Hemoglobin Ql (U) LARGE Abnormal NEGATIVE [facility] Comment on above: Performed By: #### C BC #### [facility] [address] [address] [address] Ramses Dumas Ketones Ql (U) Negative Normal NEGATIVE [facility] Comment on above: Performed By: #### C BC #### [facility] [address] [place] [address] Dr. Ramses Dumas LEUKOCYTES LARGE Abnormal NEGATIVE [facility] Comment on above: Performed By: #### C BC #### [facility] [address] [place] [address] Dr. Ramses Dumas Nitrite Ql (U) Positive Abnormal NEGATIVE [facility] Comment on above: Performed By: #### C BC #### [facility] [address] [place] [address] Dr. Ramses Dumas pH (U) 6.0 [pH] Normal 5-9 [facility] Comment on above: Performed By: #### C BC #### [facility] [address] [place] [address] Dr. Ramses Dumas Protein (U) [Mass/Vol] 30 mg/dL Abnormal NEGATIVE/ TRACE [facility] Comment on above: Performed By: #### C BC #### [facility] [address] [place] [address] Dr. Ramses Dumas SPEC GRAVITY >=1.030 Abnormal 1.005-<=1.02 5 [facility] Comment on above: Performed By: #### C BC #### [facility] [address] [place] [address] Dr. Ramses Dumas UR MICRO IND INDICATED Normal [facility] Comment on above: Performed By: #### C BC #### [facility] [address] [place] [address] Dr. Ramses Dumas Urobilinogen Qn (U) 0.2 {Lucero'U}/dL Normal 0.2 - 1. 0 [facility] Comment on above: Performed By: #### C BC #### [facility] [address] [place] [address] Dr. Ramses Dumas ETHANOL (BLD ALC)on 08-13-20 ALC NOTE NOTE: 80 mg/dl is th e legal limit for a blood alcohol level Normal [facility] Comment on above: Performed By: #### B LDCX2 #### [facility] [address] [place] [address] Dr. Ramses Dumas Ethanol [Mass/Vol] mg/dL Normal [facility] Comment on above: Performed By: #### B LDCX2 #### [facility] [address] [place] [address] Dr. Ramses Dumas URon 08-13-2022 , QUAL Negative Normal NEGATIVE [facility] Comment on above: Performed By: #### C BC #### [facility] [address] [place] [address] Dr. Ramses Dumas PROF 14(COMP METB)on 022 Albumin [Mass/Vol] 3.8 g/dL Normal 3.4-5.0 [facility] Comment on above: Performed By: #### U RCX #### [facility] [address] [place] [address] Dr. Ramses Dumas Albumin/Globulin [Mass ratio] 0.9 {ratio} Normal [facility] Comment on above: Performed By: #### U RCX #### [facility] [address] [place] [address] Dr. Ramses Dumas ALP [Catalytic activity/Vol] 82 U/L Normal 46-116 [facility] Comment on above: Performed By: #### U RCX #### [facility] [address] [place] [address] Dr. Ramses Dumas ALT [Catalytic activity/Vol] 41 U/L Normal 14-59 [facility] Comment on above: Performed By: #### U RCX #### [facility] [address] [place] [address] Dr. Ramses Dumas Anion gap [Moles/Vol] 9.3 mmol/L Normal [facility] Comment on above: Performed By: #### U RCX #### [facility] [address] [place] [address] Dr. Ramses Dumas AST [Catalytic activity/Vol] 21 U/L Normal 15-37 [facility] Comment on above: Performed By: #### U RCX #### [facility] [address] [place] [address] Dr. Ramses Dumas Bilirubin [Mass/Vol] 0.3 mg/dL Normal 0.2-1.0 [facility] Comment on above: Performed By: #### U RCX #### [facility] [address] [place] [address] Dr. Ramses Dumas Calcium [Mass/Vol] 8.9 mg/dL Normal 8.5-10.1 [facility] Comment on above: Performed By: #### U RCX #### [facility] [address] [place] [address] Dr. Ramses Dumas Chloride [Moles/Vol] 105 mmol/L Normal 98-107 [facility] Comment on above: Performed By: #### U RCX #### [facility] [address] [address] [address] Ramses Dumas CO2 [Moles/Vol] 28.5 mmol/L Normal 21.0-32.0 [facility] Comment on above: Performed By: #### U RCX #### [facility] [address] [place] [address] Dr. Ramses Dumas Creatinine [Mass/Vol] 0.81 mg/dL Normal 0.55-1.02 [facility] Comment on above: Performed By: #### U RCX #### [facility] [address] [place] [address] Dr. Ramses Dumas EGFR-AF THAI >60 Normal >=60 [facility] Comment on above: Performed By: #### U RCX #### [facility] [address] [place] [address] Dr. Ramses Dumas EGFR-NON AF THAI >60 Normal >=60 [facility] Comment on above: Performed By: #### U RCX #### [facility] [address] [place] [address] Dr. Ramses Dumas Globulin (S) [Mass/Vol] 4.1 g/dL Normal [facility] Comment on above: Performed By: #### U RCX #### [facility] [address] [address] [address] Ramses Dumas Glucose [Mass/Vol] 100 mg/dL Normal 74-106 [facility] Comment on above: Performed By: #### U RCX #### [facility] [address] [place] [address] Dr. Ramses Dumas Potassium [Moles/Vol] 3.8 mmol/L Normal 3.5-5.1 [facility] Comment on above: Performed By: #### U RCX #### [facility] [address] [address] [address] Ramses Dumas Protein [Mass/Vol] 7.9 g/dL Normal 6.4-8.2 [facility] Comment on above: Performed By: #### U RCX #### [facility] [address] [address] [address] Ramses Dumas Sodium [Moles/Vol] 139 mmol/L Normal 136-145 [facility] Comment on above: Performed By: #### U RCX #### [facility] [address] [address] [address] Ramses Dumas Urea nitrogen [Mass/Vol] 10.0 mg/dL Normal 7.0-18.0 [facility] Comment on above: Performed By: #### U RCX #### [facility] [address] [address] [address] Ramses Dumas Urea nitrogen/Creatinine [Mass ratio] 12.3 mg/mg Normal [facility] Comment on above: Performed By: #### U RCX #### [facility] [address] [address] [address] Ramses Dumas SALICYLATEon 08-13-2022 SALICYLATE <2.8 Normal <=19.9 [facility] Comment on above: Performed By: #### U RCX #### [facility] [address] [address] [address] Ramses Dumas URINE MICROSCOPIC ONLYon BACTERIA LARGE Abnormal NONE SEEN [facility] Comment on above: Performed By: #### C BC #### [facility] [address] [address] [address] Ramses Dumas Bacteria identified Cx Nom (U) INDICATED Normal [facility] Comment on above: Performed By: #### C BC #### [facility] [address] [address] [address] Ramses Dumas CA OX CRYSTALS RARE Normal [facility] Comment on above: Performed By: #### C BC #### [facility] [address] [place] [address] Dr. Ramses Dumas CAST NONE SEEN Normal NONE SEEN [facility] Comment on above: Performed By: #### C BC #### [facility] [address] [place] [address] Dr. Ramses Dumas Crystals LM Nom (Urine sed) SEEN Abnormal NONE SEEN [facility] Comment on above: Performed By: #### C BC #### [facility] [address] [place] [address] Dr. Ramses Dumas Epithelial cells LM Ql (Urine sed) MODERATE Abnormal NONE SEEN /RARE [facility] Comment on above: Performed By: #### C BC #### [facility] [address] [place] [address] Dr. Ramses Dumas MUCOUS NONE SEEN Normal NONE SEEN [facility] Comment on above: Performed By: #### C BC #### [facility] [address] [place] [address] Dr. Ramses Dumas RBC 10-20 Abnormal 0-2 [facility] Comment on above: Performed By: #### C BC #### [facility] [address] [place] [address] Dr. Ramses Dumas WBC 20-50 Abnormal NONE SEEN [facility] Comment on above: Performed By: #### C BC #### [facility] [address] [place] [address] Dr. Ramses Dumas Pap IG,rfx Aptima HPV all pt hon 08-09-2022 . . Normal [facility] Comment on above: Performed By: #### C MP #### [facility] [address] [place] [address] Dr. Ramses Dumas DIAGNOSIS: Comment Abnormal [facility] Comment on above: Result Comment: EPIT HELIAL CELL ABNORMALITY. LOW GRADE SQUAMOUS INTRAEPITHELIAL LESION (LSIL). Performed By: #### C MP #### [facility] [address] [place] [address] Dr. Ramses Dumas Electronically signed by: Comment Normal [facility] Comment on above: Result Comment: Arnaud Joseph MD, Pathologist Performed By: #### C MP #### [facility] [address] [address] [address] Ramses Dumas HPV Aptima Negative Normal Negative [facility] Comment on above: Result Comment: This nucleic acid amplification test detects fourteen high-risk HPV types (16,18,31,33,35,39,45,51,52,56,58,59,66,68) without differentiation. Performed By: #### C MP #### [facility] [address] [address] [address] Ramses Dumas Methodology: Comment Normal [facility] Comment on above: Result Comment: This liquid based ThinPrep(R) pap test was screened with the use of an image guided system. Performed By: #### C MP #### [facility] [address] [place] [address] Dr. Ramses Dumas Note: Comment Normal [facility] Comment on above: Result Comment: The Pap smear is a screening test designed to aid in the detection of premalignant and malignant conditions of the uterine cervix. It is not a diagnostic procedure and should not be used as the sole means of detecting cervical cancer. Both false-positive and false-negative reports do occur. . Performed By: #### C MP #### [facility] [address] [place] [address] Dr. Ramses Dumas Pathologist Provided ICD10 Comment Normal [facility] Comment on above: Result Comment: [id number] Performed By: #### C MP #### [facility] [address] [place] [address] Dr. Ramses Dumas Performed by: Comment Normal [facility] Comment on above: Result Comment: Gail Ruano, Physical Education Instructor (ASCP) Performed By: #### C MP #### [facility] [address] [place], [place] [id number] Dr. Ramses Dumas Reflex Criteria: Comment Normal [facility] Comment on above: Result Comment: See below for HPV testing results. . Performed By: #### C MP #### [facility] [address] [place], [place] [id number] Dr. Ramses Dumas Specimen adequacy: Comment Normal [facility] Comment on above: Result Comment: Sati sfactory for evaluation. Endocervical and/or squamous metaplastic cells (endocervical component) are present. Performed By: #### C MP #### [facility] [address] [place] [address] Dr. Ramses Dumas Vital Signs Date Time Vital Sign Value Performing Clinician Facility 04-05-2025 13:06-0400 Body mass index (BMI) [Ratio] 29.86 kg/m2 [facility] Work Phone: [facility] 04-05-2025 13:06-0400 Body weight 83.92 kg Jefferson Bernie [employer] Work Phone: [facility] 04-05-2025 13:06-0400 Diastolic blood pressure 72 mm[Hg] [facility] Work Phone: [facility] 04-05-2025 13:06-0400 Systolic blood pressure 124 mm[Hg] [facility] Work Phone: [facility] 01-29-2025 09:23-0400 Body temperature 98.1 [degF] Luis Fel[facility]acruz [facility] [employer] 01-29-2025 09:23-0400 Diastolic blood pressure 86 mm[Hg] Luis Felipe Delacruz MD [facility] 01-29-2025 09:23-0400 Heart rate 81 /min Luis Felipe Delacruz MD [facility] 01-29-2025 09:23-0400 Respiratory rate 18 /min Luis Felipe Delacruz MD [facility] [employer] 01-29-2025 09:23-0400 SaO2% (BldA) [Mass fraction] 100 % Luis Felipe Delacruz MD [facility] 01-29-2025 09:23-0400 Systolic blood pressure 129 mm[Hg] Luis Felipe Delacruz MD [facility] [employer] 01-29-2025 06:00-0400 Body mass index (BMI) [Ratio] 29.01 kg/m2 Luis Felipe Delacruz MD Work Phone: [facility] [employer] 01-29-2025 06:00-0400 Body weight 81.5 kg Luis Felipe Delacruz MD Work Phone: [facility] [employer] 01-27-2025 10:01-0400 Body height 167.6 cm Luis Felipe Delacruz MD Work Phone: [facility] [employer] 01-22-2025 11:49-0400 Body temperature 97.7 [degF] Luis Felipe Delacruz MD Work Phone: [facility] [employer] 01-22-2025 11:49-0400 Diastolic blood pressure 75 mm[Hg] Luis Felipe Delacruz MD Work Phone: [facility] [employer] 01-22-2025 11:49-0400 Heart rate 54 /min Luis Felipe Delacruz MD Work Phone: [facility] [employer] 01-22-2025 11:49-0400 Respiratory rate 15 /min Luis Felipe Delacruz MD Work Phone: [facility] [employer] 01-22-2025 11:49-0400 SaO2% (BldA) [Mass fraction] 98 % Luis Felipe Delacruz MD Work Phone: [facility] [employer] 01-22-2025 11:49-0400 Systolic blood pressure 108 mm[Hg] Luis Felipe Delacruz MD Work Phone: [facility] [employer] 01-21-2025 23:45-0400 Body height 167.6 cm Luis Felipe Delacruz MD Work Phone: [facility] [employer] 01-21-2025 23:45-0400 Body mass index (BMI) [Ratio] 28.23 kg/m2 Luis Felipe Delacruz MD Work Phone: [facility] [employer] 01-21-2025 23:45-0400 Body weight 79.3 kg Luis Felipe Delacruz MD Work Phone: [facility] [employer] 04-10-2024 07:30-0400 Body temperature 98 [degF] MD Domingo Snyder Work Phone: [facility] 04-10-2024 07:30-0400 Diastolic blood pressure 73 mm[Hg] MD Domingo Snyder Work Phone: [facility] 04-10-2024 07:30-0400 Heart rate 75 /min MD Domingo Snyder Work Phone: [facility] 04-10-2024 07:30-0400 Respiratory rate 16 /min MD Domingo Snyder Work Phone: [facility] 04-10-2024 07:30-0400 SaO2% (BldA) [Mass fraction] 100 % MD Domingo Snyder Work Phone: [facility] 04-10-2024 07:30-0400 Systolic blood pressure 123 mm[Hg] MD Domingo Snyder Work Phone: [facility] 04-08-2024 22:44-0400 Body height 167.64 cm MD Domingo Snyder Work Phone: [facility] 04-08-2024 22:44-0400 Body weight 86.58 kg MD Domingo Snyder Work Phone: [facility] 03-20-2023 10:30-0400 Blood Pressure Location Nona RAYGOZA [facility] 03-20-2023 10:30-0400 Diastolic blood pressure 73 mm[Hg] Nona RAYGOZA [facility] 03-20-2023 10:30-0400 Heart rate 80 /min Nona RAYGOZA [facility] 03-20-2023 10:30-0400 Respiratory rate 16 /min Nona RAYGOZA [facility] 03-20-2023 10:30-0400 Systolic blood pressure 128 mm[Hg] Nona RAYGOZA [facility] Encounters Encounter Date Encounter Type Care [...] Start: 05-05-2025 End: 05-05-2025 ambulatory Vj Fraire [facility] Work Phone: Start: 05-05-2025 End: 05-05-2025 Departed Referred Vj Fraire DO -LAB [facility] Start: 04-24-2025 End: 04-24-2025 Bamboo steven Leiva MD Work Phone: [facility] Start: 04-24-2025 End: 04-24-2025 Bamboo steven Leiva MD Work Phone: [facility] Start: 04-24-2025 End: 04-24-2025 Postop follow up visit related to original px Patrick Leiva MD Work Phone: [facility] Comment on above: Encounter for [...] Start: 03-16-2025 End: 03-16-2025 ambulatory Adonis Guerra Facility:[facility] Start: 01-26-2025 End: 01-29-2025 Evaluation and management of inpatient Luis Felipe Delacruz MD Work Phone: [facility] Comment on above: Bilateral ureteral c alculi; Acute postoperative pain Start: 01-26-2025 Emergency department patient visit DOMINGO RICHYane Facility:[facility] Start: 01-21-2025 End: 01-22-2025 Evaluation and management of inpatient Luis Felipe Delacruz MD Work Phone: [facility] Comment on above: Acute postoperative pain (Primary Dx); Renal calculus, left Start: 01-21-2025 End: 01-21-2025 ambulatory Domingo Snyder MD Work Phone: [facility] Work Phone: Start: 01-21-2025 End: 01-21-2025 Departed Referred Domingo Snyder MD Work Phone: [facility] Start: 01-17-2025 End: 01-19-2025 ambulatory DOMINGO SNYDER [facility] Start: 01-17-2025 End: 01-19-2025 Subsequent hospital visit by physician Octavio Shi Rn [facility] Special [facility] Comment on above: Arrived VUR (vesicoureteric reflux) Start: 01-05-2025 End: 01-07-2025 [facility] Start: 12-02-2024 End: 12-02-2024 ambulatory Domingo Snyder MD Work Phone: [facility] Work Phone: Start: 12-02-2024 End: 12-02-2024 Departed Referred Domingo Snyder MD Work Phone: [facility] Start: 06-16-2024 End: 10-03-2024 ambulatory [place] Start: 04-09-2024 Non-patient / Non-visit MD Vicente Snyder Work Phone: [facility] Work Phone: Start: 04-08-2024 End: 04-10-2024 Evaluation and management of inpatient MD Domingo Snyder Work Phone: [facility] Work Phone: Start: 12-04-2023 End: 12-05-2023 ambulatory Nona RAYGOZA Facility:[facility] Start: 12-04-2023 End: 12-04-2023 Patient encounter procedure Nona RAYGOZA [facility] Start: 04-10-2023 End: 04-10-2023 Patient encounter status Jefferson Gibbs DO Work Phone: [facility] Start: 04-09-2023 End: 04-10-2023 ambulatory Nona RAYGOZA Facility:[id number] Start: 03-20-2023 End: 03-21-2023 ambulatory Nona RAYGOZA Facility:[facility] Start: 03-20-2023 End: 03-20-2023 Patient encounter procedure Nona RAYGOZA [facility] Start: 02-16-2023 End: 02-16-[address] DOMINGO SNYDER . Facility:[facility] Start: 02-02-2023 End: 02-02-[address] DOMINGO SNYDER . Facility:[facility] Start: 12-26-2022 End: 12-27-2022 ambulatory Nona RAYGOZA Facility:[facility] Start: 12-26-2022 End: 12-26-2022 Patient encounter procedure Nona RAYGOZA [facility] Start: 12-16-2022 End: 12-17-[address] NONA RAYGOZA . Facility:[facility] Start: 12-15-2022 End: 12-16-[address] NONA RAYGOZA . Facility:[facility] Start: 11-27-[address] DOMINGO SNYDER . Facili ty:[facility] Start: 11-07-2022 End: 11-07-[address] DOMINGO SNYDER . Facility:[facility] Start: 11-04-2022 Encounter for preprocedural cardiovascular examination DR JEFFERSON GIBBS . [facility] Start: 11-04-2022 Encounter for preprocedural laboratory examination DR JEFFERSON GIBBS . [facility] Start: 11-03-2022 End: 11-04-2022 Encounter for preprocedural cardiovascular examination DR DOMINGO SNYDER . Facility:[facility] Start: 11-03-2022 End: 11-04-[address] DOMINGO SNYDER . Facility:[facility] Start: 09-20-2022 Encounter for preprocedural laboratory examination DR NONA RAYGOZA . [facility] Start: 09-18-2022 End: 09-18-[address] NONA RAYGOZA . Facility:[facility] Start: 09-16-2022 End: 09-17-[address] NONA RAYGOZA . Facility:[facility] Start: 09-16-2022 End: 09-17-2022 Encounter for preprocedural laboratory examination DR NONA RAYGOZA . Facility:[facility] Start: 09-05-2022 End: 09-05-2022 ambulatory ORA BOND . Facility:[facility] Start: 09-04-2022 End: 09-04-2022 ambulatory DANIEL MONTGOMERY Facility:[facility] Start: 09-04-2022 End: 09-04-2022 ambulatory Daniel Montgomery SENIOR TECHNICAL SUPPORT ENGINEER.SALES OPERATIONS SPECIALIST Work Phone: Urology Comment on above: NO SHOW (Primary Dx) Start: 09-04-2022 End: 09-04-2022 Telemedicine consultation with patient Daniel Montgomery SENIOR TECHNICAL SUPPORT ENGINEER.SALES OPERATIONS SPECIALIST Work Phone: [facility] Start: 08-28-2022 End: 08-29-[address] ERWIN MOORE Facility:[facility] Start: 08-22-2022 End: 08-24-[address] DOMINGO SNYDER . Facility:[facility] Start: 08-13-2022 End: 08-13-2022 ambulatory ORA BOND . Facility:[facility] Start: 07-31-2022 Encounter for cervic al smear to confirm findings of recent normal smear following initial abnormal smear DR JEFFERSON GIBBS . [facility] Start: 07-30-2022 End: 07-30-[address] [...] Work Phone: Start: 01-27-2025 CULTURE, BLOOD 1 [facility] sarahy Arora DO Work Phone: Start: 01-27-2025 CULTURE, BLOOD 1 [facility] sarahy Hemphill DO Work Phone: Start: 01-27-2025 Basic metabolic pane l calcium total Kyung Miester SENIOR TECHNICAL SUPPORT ENGINEER - LONG TERM Work Phone: Start: 01-26-2025 Basic metabolic pane [...] wi th dilation of urethral stricture Nona RYAGOZA Start: 05-30-2012 Cholecystectomy Nona RAYGOZA H/O: hysterectomy [...] Dermatology [address] [place] [address] Patrick Leiva MD [address] [place] [address] [facility] Start: 04-09-2026 End: 04-09-2026 Patient encounter procedure [facility] Start: 05-29-2025 End: 05-29-2025 Patient encounter procedure [facility] Comment on above: Arrived Start: 05-19-2025 Influenza vaccination Flu vaccine (Season Ended) [facility] Start: 05-15-2025 End: 05-15-2025 Patient encounter procedure 05/15/2025 3:30 PM EDT Office Visit [facility] [address] [place] [id number] Patrick Leiva MD [address] [place] [address] [facility] Start: 05-05-2025 Urine culture [facility] Start: 05-05-2025 Bacteria identified in Urine by Culture Urine Culture [facility] Start: 04-24-2025 End: 04-24-2025 Patient encounter procedure [facility] Comment on above: Arrived Start: 04-10-2025 End: 04-10-2025 Patient encounter procedure [facility] Comment on above: Arrived Start: 04-05-2025 End: 04-05-2025 Patient encounter procedure 04/05/2025 1:00 PM EDT Office Visit [facility] [address] [place] [id number] Jefferson Gibbs DO [address] [place] [address] Arrived [facility] Comment on above: Arrived Start: 01-22-2025 End: 01-22-2025 CYSTOSCOPY URETERAL STENT INSERTION CYSTOSCOPY URETERAL STENT INSERTION Renal calculus, left 01/22/2025 9:28 AM EDT [facility] Start: 01-21-2025 Urine culture [facility] Start: 01-21-2025 Bacteria identified in Urine by Culture Urine Culture [facility] Start: 12-02-2024 Urine culture [facility] Start: 12-02-2024 Bacteria identified in Urine by Culture Urine Culture [facility] Start: 06-19-2024 COVID-19 Vaccine ( season) COVID-19 Vaccine ( season) [facility] Start: 04-10-2024 [facility] Start: 04-08-2024 Referral to Script Reader [facility] Start: 04-08-2024 Hospital admission [facility] Start: 04-08-2024 [facility] Start: 06-19-2022 Influenza vaccination INFLUENZA (#1) [facility] Start: 10-19-2021 DEPRESSION ASSESSMENT DEPRESSION ASSESSMENT [facility] Start: 2021 HPV TESTING HPV TESTING [facility] Start: 2021 [facility] Start: 2012 PAP TESTING PAP TESTING [facility] Start: 2012 Screening for malignant neoplasm of cervix Pap [facility] Start: 2010 Urine microalbumin profile DTAP,TDAP,TD (1 - Tdap) [facility] Start: 2009 HEPATITIS C SCREENING HEPATITIS C SCREENING [facility] Start: 2009 Hepatitis C screening Hepatitis C screen [facility] Start: 2009 HIV SCREENING HIV SCREENING [facility] Start: 2006 HIV screening [facility]: 2004 Varicella vaccine (1 of 2 - 13+ 2-dose series) Varicella vaccine (1 of 2 - 13+ 2-dose series) [facility] Start: 2003 Depression Screen Depression Screen [facility] Start: 1995 Polio vaccine (4 of 4 - 4-dose series) Polio vaccine (4 of 4 - 4-dose series) [facility] Start: 03-14-1992 COVID-19 VACCINE (#1) COVID-19 VACCINE (#1) [facility] Start: 1991 HEPATITIS B (1 of 3 - 3-dose series) HEPATITIS B (1 of 3 - 3-dose series) [facility] End: 01-24-2025 Basic metabolic 2000 panel - Serum or Plasma Basic metabolic panel Lab Routine Daily for 3 Days starting 01/22/2025 until 01/24/2025, 1 completed [facility] Comment on above: Daily for 3 Days starting 01/22/2025 unt il 01/24/2025, 1 completed End: 01-24-2025 CBC W Auto Differential panel - Blood CBC with Auto Differential Lab Routine Daily for 3 Days starting 01/22/2025 until 01/24/2025 [facility] Comment on above: Daily for 3 Days starting 01/22/2025 unt il 01/24/2025 Culture, Blood 1 [facility] Culture, Urine [employer] Comment on above: Release Upon Ordering for 1 Occurrences starting 01/22/2025 Cytology Cervical or vaginal smear or scraping study Pap Smear Pathology and Cytology Routine Well woman exam with routine gynecological exam Ordered: 04/05/2025 [employer] Work Phone: Comment on above: Ordered: 04/05/2025 Dermatopathology exam Dermatopat hology exam Pathology and Cytology Timed Neoplasm of unspecified behavior of bone, soft tissue, and skin Release Upon Ordering for 1 Occurrences starting 04/10/2025 [employer] Phone: Comment on above: Release Upon Ordering for 1 Occurrences starting 04/10/2025 Dermatopathology exam Dermatopat hology exam Pathology and Cytology Timed Neoplasm of unspecified behavior of bone, soft tissue, and skin Release Upon Ordering for 1 Occurrences starting 05/15/2025 [employer] Work Phone: Comment on above: Release Upon Ordering for 1 Occurrences starting 05/15/2025 End: 01-22-2025 Glucose [Mass/volume] in Serum or Plasma POCT Glucose Point of Care Testing Routine One Time for 1 Occurrences starting 01/22/2025 until 01/22/2025 [employer] Work Phone: Comment on above: One Time for 1 Occurrences starting 03/2025 until 01/22/2025 Human papilloma viru s DNA [Presence] in Unspecified specimen by Probe with amplification HPV DNA probe, amplified Microbiology Routine Well woman exam with routine gynecological exam Ordered: 04/05/2025 [facility] Comment on above: Ordered: 04/05/2025 Oxygen therapy [Mini mum Data Set] Initiate Oxygen Therapy Protocol Respiratory Care Routine As Needed until discontinued starting 01/21/2025 [facility] Comment on above: As Needed until discontinued starting Oxygen therapy [Mini mum Data Set] Initiate Oxygen Therapy Protocol Respiratory Care Routine As Needed until discontinued starting 01/26/2025 [facility] Comment on above: As Needed until discontinued starting Patient Education Bipolar Disord er ([place]) [facility] [place] Instructions Know your Meds [facility] Work Phone: Patient referral [facility] Work Phone: End: 01-22-2025 Stone Analysis Stone Analysis Microbiology Routine One Time for 1 Occurrences starting 01/22/2025 until 01/22/2025 [employer] Work Phone: Comment on above: One Time for 1 Occurrences starting 03/2025 until 01/22/2025 Stone Analysis Stone Analysis Microbiology [employer] Label Print 01/22/2025 4:44 AM EDT [facility] End: 01-26-2025 Stone Analysis Stone Analysis Microbiology Routine One Time for 1 Occurrences starting 01/26/2025 until 01/26/2025 [facility] Comment on above: One Time for 1 Occurrences starting 01/17 until 01/26/2025 Immunizations Immunization Date Immunization Notes Care Provider Beata moore 08-01-2019 influenza virus vaccine, unspecified formulation Nona RAYGOZA [facility] 08-09-2018 tetanus toxoid, redu franco diphtheria toxoid, and acellular pertussis vaccine, adsorbed Nona RAYGOZA [facility] 08-08-2018 influenza virus vaccine, unspecified formulation Nona RAYGOZA [facility] 06-19-2004 hepatitis B vaccine, pediatric or pediatric/adolescent dosage Nona RAYGOZA [facility] 03-27-2004 hepatitis B vaccine, pediatric or pediatric/adolescent dosage Nona RAYGOZA [facility] 12-18-2003 hepatitis B vaccine, pediatric or pediatric/adolescent dosage Nona RAYGOZA [facility] 12-18-2003 measles, mumps and rubella virus vaccine Nona RAYGOZA [facility] 04-10-1993 DTaP, unspecified formulation [employer] [facility] 04-10-1993 poliovirus vaccine, unspecified formulation [employer] [facility] 12-28-1992 Hib, unspecified formulation Nona RAYGOZA [facility] 12-28-1992 measles, mumps and rubella virus vaccine Nona [employer] [facility] 03-26-1992 Hib, unspecified formulation Nona RAYGOZA [facility] 01-18-1992 Hib, unspecified formulation Nona RAYGOZA [facility] 1991 Hib, unspecified formulation Nona RAYGOZA [facility] Payers Date Payer Category Payer Self-pay 2023 Private Health Insurance [employer] [id number] 2023 Unknown [id number] 2021 Medicaid [place] MEDICAID TERM 09/17 [facility] MEDICAID [id number] 2021-Present [phone] [address] [place] [address] Medicaid [id number] 1991 Unknown [id number] 2.16.840.1.078307.3.579.2. 593 1991 Unknown [id number] 2.16.840.1.264385.3.579.2. 593 1991 Unknown [id number] 2.16.840.1.990763.3.579.2. 593 1991 Unknown [id number] 2.16.840.1.234722.3.579.2. 593 1991 Unknown [id number] 2.16.840.1.847522.3.579.2. 593 1991 Unknown [id number] 2.16.840.1.472856.3.579.2. 593 1991 Unknown [id number] 2.16.840.1.256214.3.579.2. 593 1991 Unknown [id number] 2.16.840.1.242849.3.579.2. 593 1991 Unknown [id number] 2.16.840.1.449853.3.579.2. 593 1991 Unknown [id number] 2.16.840.1.923994.3.579.2. 593 1991 Unknown [id number] 2.16.840.1.237878.3.579.2. 593 1991 Unknown [id number] 2.16.840.1.057677.3.579.2. 593 1991 Unknown [id number] 2.16.840.1.233007.3.579.2. 593 1991 Unknown [id number] 2.16.840.1.962809.3.579.2. 593 1991 Unknown [id number] 2.16.840.1.487313.3.579.2. 593 1991 Unknown [id number] 2.16.840.1.196341.3.579.2. 593 1991 Unknown [id number] 2.16.840.1.789118.3.579.2. 727 1991 Unknown [id number] 2.16.840.1.604339.3.579.2. 727 1991 Unknown [id number] 2.16.840.1.814638.3.579.2. 727 1991 Unknown [id number] 2.16.840.1.841156.3.579.2. 727 1991 Unknown [id number] 2.16.840.1.877635.3.579.2. 174 1991 Unknown [id number] 2.16.840.1.757538.3.579.2. 175 1991 Unknown [id number] 2.16.840.1.453434.3.579.2. 175 1991 Unknown [id number] 2.16.840.1.943147.3.579.2. 175 1991 Unknown [id number] 2.16.840.1.530675.3.579.2. 175 1991 Unknown [id number] 2.16.840.1.010774.3.579.2. 718 1991 Unknown [id number] 2.16.840.1.307250.3.579.2. 1259 1991 Unknown [id number] 2.16.840.1.897847.3.579.2. 1259 1991 Unknown [id number] 2.16.840.1.567706.3.579.2. 1259 1991 Unknown [id number] 2.16.840.1.356692.3.579.2. 1259 1959 Medicaid [id number] 1958 Self-pay [id number] 1959 Unknown [id number] Unknown [id number] 2.16.840.1.125775.3.579.2. 531 Unknown [id number] 2.16.840.1.951698.3.579.2. 531 Unknown [id number] 2.16.840.1.910720.3.579.2. 531 Social History Date Type Detail Facility [facility] smoking consumption unknown [facility] Start: 1990 Sex Assigned At Not on file [facility] Start: 08-20-2021 End: 04-10-2025 Tobacco smoking status Never smoked tobacco (finding) [facility] Tobacco smoking status Never [facility] Start: 01-22-2025 End: 05-15-2025 Sex Assigned At Female [facility] Start: 1990 Sex Assigned At Female F [facility] Start: 11-24-2024 End: 12-04-2024 Sex Female (finding) [facility] Start: 01-22-2025 End: 04-10-2025 Tobacco use and exposure Smokeless tobacco non-user [facility] Start: 01-22-2025 End: 01-27-2025 Alcoholic beverage intake Ex-drinker (finding) [facility] Start: 01-22-2025 End: 05-15-2025 History of Social function [facility] Has the [employer], or [employer] threatened to shut off services in your home in past 12Mo No Bon [employer] (I/We) worried wheth er (my/our) food would run out before (I/we) got money to buy more. Never true Bon [employer] Start: 01-10-2024 End: 05-29-2025 Alcoholic beverage intake Lifetime non-drinker (finding) [facility] Medical Equipment Procedure Code Equipment Code Equipment Origin al Text Equipment Identifier Dates Stent Uret 6fr L 26cm Percflx Hydr+ Tapr Tip Grad - [id number] ()[id number] , [id number] FDA Start: 01-22-2025 Stent Uret 6fr L 26cm Percflx Hydr+ Dbl Pgtl Thrd 2 - [id number] ()[id number] , [id number], [id number] FDA Start: 01-27-2025 Goals Date Patient Goal Desired Activity /State Functional Status Date Assessment Result Facility 04-10-2024 Functional status Patient at [facility] Work Phone: 03-20-2023 Functional Status N/A [facility] Mental Status Date Assessment Result Facility 04-10-2024 Cognitive function Cognitive Sta tus Patient at Baseline [facility] Work Phone: Clinical Notes 07-03-2022 [...] year, skin check documented in this encounter [facility] 05-15-2025 History of Present illness [...] nevus Check Margins: Yes Previous accession number: [id number] 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, soft tissue, and skin Plan: Skin excision, Skin repair Follow up: 14 days for s/r documented in this encounter [facility] 04-24-2025 History of Present illness [...] Visit: as scheduled documented in this encounter [facility] 04-10-2025 History of Present illness [...] OF RIGHT UPPER EYELID Right Upper Eyelid Roxie papule Favor possible stye, recommend patient continue [...] Visit: 2 weeks documented in this encounter [facility] 04-05-2025 History of Present illness [...] (BMI) of 40.1 to 44.9 in adult ([facility]) 04/10/2023 Encounter for follow-up examination after completed treatment for conditions other than malignant neoplasm 04/10/2023 IUD contraception 04/10/2023 Menorrhagia with regular cycle 04/10/2023 Anti-M isoimmunization affecting , 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[facility]) 03/18/2018 Anxiety 07/26/2020 Bipolar disorder ([facility] 06/01/2023 Dysuria 06/01/2023 Entrapment of left ulnar nerve 06/01/2023 Feeling of incomplete bladder emptying 06/01/2023 Flank pain 06/01/2023 Frequency of urination 06/01/2023 History of chlamydia 07/26/2020 History of gestational diabetes 07/26/2020 History of kidney stones 06/01/2023 Hypercalciuria 06/01/2023 Hyperoxaluria 06/01/2023 Intrauterine ([facility]) 02/18/2018 Lesion of ulnar nerve 06/01/2023 Mass of scalp 06/01/2023 Muscle pain 06/01/2023 Microhematuria 06/01/2023 Astigmatism 05/05/2017 Nocturia 06/01/2023 Overweight 06/01/2023 Pyelonephritis 06/01/2023 Kidney stone 06/01/2023 Retroflexion of uterus 06/01/2023 Sprain of calcaneofibular ligament 06/01/2023 Streptococcal pharyngitis 06/01/2023 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/01/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 06/01/2023 Superficial thrombophlebitis 06/01/2023 Term delivery with labor in third trimester ([facility]) 08/06/2018 Urge incontinence 06/01/2023 Urinary urgency 06/01/2023 UTI (urinary tract infection) 06/01/2023 Mass of left breast 01/08/2024 Resolved Ambulatory Problems Diagnosis Date Noted Encounter for gynecological examination (general) (routine) without abnormal findings 04/10/2023 Past Medical History: Diagnosis Date Abnormal Pap smear of cervix Anxiety and depression Bipolar 1 disorder (HCC) Bladder prolapse, congenital ([facility]) Dysplasia of cervix S/P VH (vaginal hysterectomy) 05/06/2023 Yeast infection HISTORY PAST MEDICAL HISTORY SOCIAL HISTORY Past Medical History: Diagnosis Date Abnormal Pap smear of cervix Anxiety and depression Bipolar 1 disorder (HCC) Bladder prolapse, congenital ([facility]) Dysplasia of cervix History of [...] nursing note reviewed. Exam conducted with a set painter present. Vitals: Estimated body mass index is [...] them. Patient can also view results via [employer]. I reinforced importance of condom use for [...] Jefferson Gibbs DO documented in this encounter [facility] 01-29-2025 History of Present illness Narrative Patient given all discharge instructions and education. Patient and present for teaching. Patient voices she still has antibiotic at home and was instructed to continue to taking them. Patient also instructed to pull stent. Awaiting scripts from pharmacy. Images from the original note were not included. [facility] Office: [phone] Duncan Shelton DO, Rad Burks DO, Gerald Le DO, Kyle Medina DO, Felipe Sandhu MD, Yancy Padgett MD, Sonia Alvarado MD, Kerri Meza MD, Arron Olson MD, Rebecca Cox MD, Deneen Kaur MD, Nathen Hemphill DO, Lynad Jimenez MD, Everette Wiggins MD, Andrey Shelton [...] WAYNE, Felicita Rm, WAYNE, Pau Viera, WAYNE [facility] IN-PATIENT SERVICE [facility] Progress Note 01/29/2025 9:05 AM Name: Diana Barriga Acct: [id number] Room: [address] [place] [address] Day: 3 Admit Date: 01/26/2025 5:25 PM [...] results for input(s): LABALBU , LABA1C , P3BQIOJ , FT4 , TSH , AST , ALT , LDH , GGT , ALKPHOS , BILITOT , BILIDIR , AMMONIA , AMYLASE , LIPASE , LACTATE , CHOL , HDL , CHOLHDLRATIO , TRIG , VLDL , IKJ88HC , PHENYTOIN , PHENYF , URICACID , POCGLU in the last 72 hours. Invalid input(s): PROT , H5WFBZS , LABGGT , LDLCHOLESTEROL ABG:No results found for: POCPH , PHART , PH , POCPCO2 , PVW7GXS , PCO2 , POCPO2 , PO2ART , PO2 , POCHCO3 , LFO1EFV , HCO3 , NBEA , PBEA , BEART , BE , THGBART , THB , PKB1OTC , CJCW5GGD , M5AKJHCP , O2SAT , FIO2 Lab Results Component [...] from the original note were not included. [facility] Office: [phone] Duncan Shelton DO, Rad Burks DO, Gerald [...] Rogers MD, Johnathon Cerda MD, Makenzie Alberts, SALES OPERATIONS SPECIALIST, [place], SALES OPERATIONS SPECIALIST, Casey Mercer, SALES OPERATIONS SPECIALIST, Galilea Bradshaw, [facility], Ritika Villaseñor, SALES OPERATIONS SPECIALIST, Indu Montoya, SALES OPERATIONS SPECIALIST, Angelica Chaney, SALES OPERATIONS SPECIALIST, Vivian Kahn, SALES OPERATIONS SPECIALIST, Garima Balbuena, PA-C, Kyung Barkley, SALES OPERATIONS SPECIALIST, Hetal Morris, SALES OPERATIONS SPECIALIST, Yvette Canchola, SALES OPERATIONS SPECIALIST, Gail Greene, SALES OPERATIONS SPECIALIST, Dominguez Nunez, PA-C, Mar Sanchez, SALES OPERATIONS SPECIALIST, Cecelia Pearson, SIGN ERECTOR AND REPAIRER, Ivy Cortes, SALES OPERATIONS SPECIALIST, Felicita Rm, SALES OPERATIONS SPECIALIST, Pau Viera, SALES OPERATIONS SPECIALIST [facility] IN-PATIENT SERVICE [facility] Progress Note 01/28/2025 1:05 PM Name: Diana Barriga Acct: [id number] Room: 0321/0321-02 Day: 2 Admit Date: 01/26/2025 [...] results for input(s): LABALBU , LABA1C , R6DMSNM , FT4 , TSH , AST , ALT , LDH , GGT , ALKPHOS , BILITOT , BILIDIR , AMMONIA , AMYLASE , LIPASE , LACTATE , CHOL , HDL , CHOLHDLRATIO , TRIG , VLDL , CRY89VP , PHENYTOIN , PHENYF , URICACID , POCGLU in the last 72 hours. Invalid input(s): PROT , L4UVDHY , LABGGT , LDLCHOLESTEROL ABG:No results found for: POCPH , PHART , PH , POCPCO2 , UNL1FFQ , PCO2 , POCPO2 , PO2ART , PO2 , POCHCO3 , VAH9OSX , HCO3 , NBEA , PBEA , BEART , BE , THGBART , THB , SGR6KFZ , RBNC8DSO , B3LLZJKB , O2SAT , FIO2 Lab Results Component [...] 0.9 0.7 Recent Labs 01/26/25 1753 COLORU Boundary* PHUR 6.5 WBCUA 20 TO 50 RBCUA [...] mass loss Fluid Accumulation: Unable to assess Chicken Cutter Strength: Not Performed Nutrition Assessment: 34 y.o.F [...] Measures: Height: 167.6 cm (5' 5.98 ) [place] Body Weight (IBW): 130 lbs (59 kg) Current Body Weight: 81.6 kg (179 lb 14.3 oz), 138.4 % IBW. Current BMI (kg/m2): 29 Estimated Daily Nutrient Needs: Energy Requirements Based On: Formula Weight Used for Energy Requirements: Current Energy (kcal/day): 8990-2632 kcals/day Weight Used for Protein Requirements: Current Protein (g/day): 82-92 g/day Method Used for Fluid Requirements: 1 ml/kcal Fluid (ml/day): 0321-4713 ml/day Nutrition Diagnosis: Inadequate oral intake related [...] determine Anastasiya Medel RDN, LD, MS Contact: [phone] Images from the original note were not included. [facility] Office: [phone] Duncan Shelton DO, Rad Burks DO, Gerald [...] MD, Jace Haji MD, Dl Graham MD, Fliomena Alexander MD, Lea Junior MD, Luis Felipe Delacruz MD, Tavares Cardoza MD, Casey Chavez DO, Analia Ring MD, Lyle Nguyen MD, Nathen Rogers MD, Cata Rogers MD, Johnathon Cerda MD, Makenzie Alberts, SALES OPERATIONS SPECIALIST, [place], SALES OPERATIONS SPECIALIST, Casey Mercer, SALES OPERATIONS SPECIALIST, Galilea Bradshaw, [facility], Ritika Villaseñor, SALES OPERATIONS SPECIALIST, Indu Montoya, SALES OPERATIONS SPECIALIST, Angelica Chaney, SALES OPERATIONS SPECIALIST, Vivian Kahn, SALES OPERATIONS SPECIALIST, [place] Balbuena, PA-C, Kyung Barkley, SALES OPERATIONS SPECIALIST, Hetal Morris, SALES OPERATIONS SPECIALIST, Yvette Canchola, SALES OPERATIONS SPECIALIST, Gail Greene, SALES OPERATIONS SPECIALIST, Dominguez Nunez, PA-C, Mar Sanchez, SALES OPERATIONS SPECIALIST, Cecelia Pearson, SIGN ERECTOR AND REPAIRER, Ivy Cortes, SALES OPERATIONS SPECIALIST, Feliciat Rm, SALES OPERATIONS SPECIALIST, Pau Viera, SALES OPERATIONS SPECIALIST [facility] IN-PATIENT SERVICE [facility] Progress Note 01/27/2025 9:31 AM Name: Diana Barriga Acct: [id number] Room: 0321/0321-02 Day: 1 Admit Date: 01/26/2025 [...] results for input(s): LABALBU , LABA1C , Z4VVSVC , FT4 , TSH , AST , ALT , LDH , GGT , ALKPHOS , BILITOT , BILIDIR , AMMONIA , AMYLASE , LIPASE , LACTATE , CHOL , HDL , CHOLHDLRATIO , TRIG , VLDL , HWL69JM , PHENYTOIN , PHENYF , URICACID , POCGLU in the last 72 hours. Invalid input(s): PROT , T8IVHHU , LABGGT , LDLCHOLESTEROL ABG:No results found for: POCPH , PHART , PH , POCPCO2 , SLA7NPL , PCO2 , POCPO2 , PO2ART , PO2 , POCHCO3 , GQA4GXN , HCO3 , NBEA , PBEA , BEART , BE , THGBART , THB , XLG9AJR , ROSB8WIA , Q3ZYCJZV , O2SAT , FIO2 Lab Results Component [...] CREATININE 0.9 Recent Labs 01/26/25 1753 COLORU Boundary* PHUR 6.5 WBCUA 20 TO 50 RBCUA [...] PM EDT documented in this encounter [facility] 01-29-2025 Hospital course Narrative Images from the original note were not included. [facility] Office: [phone] Duncan Shelton DO, Rad Burks DO, Gerald [...] Rogers MD, Johnathon Cerda MD, Makenzie Alberts, SALES OPERATIONS SPECIALIST, [place], SALES OPERATIONS SPECIALIST, Casey Mercer, SALES OPERATIONS SPECIALIST, Galilea Bradshaw, [facility], Ritika Villaseñor, SALES OPERATIONS SPECIALIST, Indu Montoya, SALES OPERATIONS SPECIALIST, Angelica Chaney, SALES OPERATIONS SPECIALIST, Vivian Kahn, SALES OPERATIONS SPECIALIST, Gar[place] Balbuena, PAAilynC, Kyung Barkley, SALES OPERATIONS SPECIALIST, Hetal Morris, SALES OPERATIONS SPECIALIST, Yvette Canchola, SALES OPERATIONS SPECIALIST, Gail Greene, SALES OPERATIONS SPECIALIST, Dominguez Nunez PAAilynC, Mar Sanchez, SALES OPERATIONS SPECIALIST, Cecelia Pearson, [facility], Ivy Cortes, SALES OPERATIONS SPECIALIST, Felicita mR, SALES OPERATIONS SPECIALIST, Pau Viera, SALES OPERATIONS SPECIALIST [facility] IN-PATIENT SERVICE [facility] Discharge Summary Patient ID: Diana Barriga : 1990 ACCOUNT: [id number] Patient's PCP: Domingo Snyder MD Admit Date: [...] Physician Follow Up: Domingo Snyder MD [address] [facility] [address] Schedule an appointment as soon as possible for a visit in 1 week(s) Adonis Guerra MD [address] [place] [place] [address] Follow up [...] narcotics Please call attending physician or hospital finish off operator with questions Call or Present to [...] narcotics Please call attending physician or hospital finish off operator with questions Call or Present to [...] from the original note were not included. [facility] Office: [phone] Duncan Shelton DO, Rad Burks DO, Gerald Le DO, Kyle Medina DO, Felipe Sandhu MD, Yancy Padgett MD, Sonia Alvarado MD, Kerri Meza MD, Arron Olson MD, Rebecca Cxo MD, Deneen Kaur MD, Nathen Hemphill DO, [...] Barkley CNP, Hetal Morris CNP, Yvette Canchola, SALES OPERATIONS SPECIALIST, Gail Greene, SALES OPERATIONS SPECIALIST, Dominguez Nunez PA-C, Mar Sanchez CNP, Cecelia Pearson, KYUNG, Ivy Cortes CNP, Felicita Rm, WAYNE, Pau Viera, WAYNE [facility] IN-PATIENT SERVICE [facility] Discharge Summary Patient ID: Diana Barriga : 1990 ACCOUNT: [id number] Patient's PCP: Domingo Snyder MD Admit Date: [...] who was transferred to our hospital from [facility] for evaluation of flank pain. CT [...] Home Physician Follow Up: Adonis Guerra MD [address] [place] [address] Schedule an appointment [...] Your Medications These medications were sent to [facility] - [place], [place] - [address] - P [phone] - F [phone] [address] [facility] [address] hyoscyamine 0.125 MG tablet oxyCODONE 5 MG [...] narcotics Please call attending physician or hospital finish off operator with questions Call or Present to ED if fever (> 101F), intractable nausea vomiting or pain. Rx e-prescribed Pt should follow up with Dr. Guerra, in 1-2 weeks, for definitive stone treatment, call to confirm appointment documented in this encounter [facility] 04-10-2024 Discharge summary Note Date/Time April 10, 2024 7:10am [facility] [address] [place] [address] Discharge Summary Signed Patient: Diana Barriga MR#: [id number] : 1990 Acct:[id number] Age/Sex: 33 / F Adm Date: 4 Loc: Room: [address] [place] [address]: Arnulfo Aviles MD Copies to: [...] Dr. Fenton but wants to switch to [place]. Along with this patient is in marriage counseling with her current and that today's session was not good. Patient stated she needs to be home to take care of her kids, the custody [place], and her marriage. Patient upset because she missed her son's play and has plans to take kids to [place] tomorrow. Patient denies any suicidal ideation denies hallucinations denies racing thoughts. Patient reports that there is no changes in her appetite or sleep. Patient reports that she feels fine. She has tried a lot of medications in the past and believes none of them have worked. He is going to [place] for psych therapy. He wants to try [...] She has an appointment coming up with [facility]. She deniedrecent suicide attempts or self [...] Restriction Diet: Regular Instructions: Bipolar Disorder (DC), [facility] [place] Instructions, [...] Arnulfo Aviles MD> 04/10/24 0929 [facility] Work Phone: [phone]) 603-503406-22-2024 History and physical note Author Arnulfo ornelas [facility] April 09, 2024 9:09am Note Date/Time April 09, 2024 8:43 am [facility] [address] [place] [address] Psychiatry H&P Signed Patient: Diana Barriga MR#: [id number] : 1990 Acct:[id number] Age/Sex: 33 / F Adm Date: 4 Loc: Room: [address] [place] [address] Type: ADM IN Attending Dr: Arnulfo Aviles [...] Dr. Fenton but wants to switch to [place]. Along with this patient is in marriage counseling with her current and that today's session was not good. Patient stated she needs to be home to take care of her kids, the custody [place], and her marriage. Patient upset because she missed her son's play and has plans to take kids to [place] tomorrow. Patient denies any suicidal ideation denies hallucinations denies racing thoughts. Patient reports that there is no changes in her appetite or sleep. Patient reports that she feels fine. She has tried a lot of medications in the past and believes none of them have worked. He is going to [place] for psych therapy. He wants to try therapy before any medications. 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 Documented By: Arnulfo Aviles MD 4 0818 Signed By: <Electronically signed by Arnulfo Aviles MD> 04/09/24 0909 [facility] Work Phone: 1(644) 228-526406-02-2023 Hospital Discharge instructions Follow Up Care 03/20/2023 11:51:58 With:IDALMIS BORDEN, Nona Turner, URL Address: [address] [place], [place] [id number]- When: Unknown [facility] 06-02-2023 Hospital Discharge instructions Patient Education [...] include: ?8 oz (237 mL) of milk, hehyfus-ewylhhmrqrnf-bpwns milk, and calcium- fortifiedfruit juice. Calcium-fortified means [...] ?Spinach (cooked), rhubarb, beets, sweet potatoes, and Cambodian chard. ?Peanuts. ?Potato chips, nepalese fries, and baked potatoes with skin on. ?Nuts and nut products. ?Chocolate. If you regularly take a diuretic medicine, make sure to eat at least 1 or 2 servings of fruits or vegetables that are high in potassium each day. These include: ?Avocado. ?Banana. ?Boundary, prune, carrot, or tomato juice. ?Baked potato. [...] magnesium, fish oil, or vitamin B6. Take apkc-nic-lrvwomi and prescription medicines only as told by [...] Casseroles. Pizza. Lasagna. Frozen meals. Potato chips. Maltese fries. The items listed above may not [...] provider. Document Revised: 06/16/2022 Document Reviewed: 06/16/2022 [employer] Patient Education 2022 [employer] Follow Up Care 12/26/2022 08:46:46 With:IDALMIS BORDEN, Nona Turner, URL Address: [facility] [address], [place] [address]- When: Unknown [facility] 01-20-2023 NoteOPERATIVE NOTE OPERATION DATE: 11/07/2022 PROCEDURE: Mery endometrial ablation with LEEP. PREOPERATIVE DIAGNOSIS: Cervical dysplasia, menorrhagia. POSTOPERATIVE DIAGNOSIS: Cervical dysplasia, menorrhagia. ANESTHESIA: General. SURGEON: [place] Gibbs D.O. DAIRY FROZEN MANAGER: None. BLOOD LOSS: 50 mL. URINE [...] taken to Recovery Room in stable condition.[id number] Hospital Discharge instructions Follow Up Care 09/25/2022 13:54:04 With:IDALMIS BORDEN, Nona Turner, DANYA Address: [address] [place], [place] [id number]- When: Unknown [facility] 12-01-2022 NoteOPERATIVE NOTE OPERATION DATE: 09/18/2022 [...] usual fashion. I started by passing a 22-Maltese Olympus cystoscope per urethra and into the [...] removed. She was then transferred to a gurderry and wheeled to PACU in stable condition.[facility] [id number] NoteHNO ID: [id number] Author: Daniel Montgomery APRN.[facility] Service: ? Author Type: Nurse Practitioner Type: Progress Notes Filed: 09/04/2022 7:46 AM Note Text: The patient did not show up for this appointment. The patient did not show up for this appointment.[id number] History of Present illness Narrative* Daniel Montgomery APRN.SALES OPERATIONS SPECIALIST - 09/04/2022 7:40 AM EST The patient did not show up for this appointment. The patient did not show up for this appointment. [facility] NotePROCEDURE: XR ANKLE LT MIN 3 V COMPARISON: None. HISTORY: Sprain of calcaneofibular ligament FINDINGS: BONES:No fracture, acute abnormality, or significant arthropathy. SOFT TISSUES:Extensive lateral soft tissue swelling EFFUSION:None visible. OTHER: Negative. IMPRESSION: Lateral soft tissue swelling. No acute fracture Electronically authenticated by: GLEN PEREZ Date: 2022-07-03 07:09[facility] note Future Appointments Appointment Date:03/20/2023 10:15:00 AM Scheduled Provider:Nona RAYGOZA MD Location:[facility] Appointment Type:URO Office Visit [facility] evaluation + Plan note Future Appointments Appointment Date:12/04/2023 09:45:00 AM Scheduled Provider:Nona RAYGOZA MD Location:[facility] Appointment Type:URO Office Visit Diagnostic Tests Pending * Electrolyte Panel 03/20/23 [facility] evaluation note* Diagnosis NO SHOW- Primary [facility] this [facility]* Diagnosis Onset Date Resolution Status Bipolar disorder acute [facility] Work Phone: evaluation noteNo assessment information available [facility] Work Phone: evaluation note* Diagnosis VUR (vesicoureteric reflux) Vesicoureteral reflux, unspecified or without reflux nephropathy [facility]* Diagnosis Left ureteral calculus- Primary Calculus of ureter Renal calculus, left Calculus of kidney Acute postoperative pain Other acute postoperative pain Acute cystitis without hematuria Acute cystitis Acute postoperative pain Other acute postoperative pain Urinary tract obstruction by kidney stone Calculus of kidney documented in this encounter [facility]* Diagnosis Hydronephrosis with renal calculous obstruction- Primary Bilateral ureteral calculi Acute postoperative pain Other acute postoperative pain Left ureteral calculus Calculus of ureter S/P cystoscopy with ureteral stent placement Pyelonephritis Pyelonephritis, unspecified documented in this encounter [facility] Touch[employer] [facility]* Diagnosis Well woman exam with routine gynecological exam Routine gynecological examination H/O: hysterectomy Acquired absence of both cervix and uterus Night sweats Generalized hyperhidrosis [facility]* Diagnosis Hordeolum externum of right upper eyelid- Primary Neoplasm of unspecified behavior of bone, soft tissue, and skin documented in this [facility]* Diagnosis Encounter for removal of sutures- Primary documented in this encounter [facility]* Diagnosis Neoplasm of unspecified behavior of bone, soft tissue, and skin- Primary [facility] encounter [facility]* Diagnosis Encounter for removal of sutures- Primary documented in this encounter [facility] Narrative No data available for this section [facility] progress note No data available for this section [facility] reason for referral (narrative)No reason for referral [facility] Work Phone: Reason for visit Narrative* Imaging (Routine) - Open Specialty Diagnoses / Procedures Referred By Luis grigsby Referred To Contact Radiology Diagnoses VUR (vesicoureteric reflux) Procedures FL VOIDING URETHROCYSTOGRAM S&I Adonis Guerra MD [address] [place] [address] Phone: tel: fax: Referral ID Status Reason Start Date Expiration Date Visits Re quested Visits Authorized [id number] Open 01/09/2025 01/09/2026 1 1 [facility] [employer] [facility] for visit Narrative* Auth/Cert Specialty Diagnoses / Procedures Referred By Luis grigsby Referred To Contact Diagnoses Urinary tract obstruction by kidney stone UTI (urinary tract infection) Ureteral calculi Luis Felipe Delacruz MD [address] [facility] [place] [address] Phone: tel: fax: [facility] [employer] [address] [place] [address] Referral ID Status Reason Start Date Expiration Date Visits Re quested Visits Authorized [id number] [facility] [facility] for [facility] Narrative* Auth/Cert Specialty Diagnoses / Procedures Referred By Contac t Referred To Contact Diagnoses Hydronephrosis, left Luis Felipe Delacruz MD [address] [place] [address] Phone: tel: fax: [facility] [employer] [address] [place] [address] Referral ID Status Reason Start Date Expiration Date Visits Re quested Visits Authorized [id number] 1 1 [facility] [employer] Summary Purpose Family History Relationship Condition Age [...] or prosecute any alcohol or drug abuse patient.[facility] Reason for Visit (unrecogniz ed section and content) Reason Onset Date Comments No Show 09/04/2022 No show Reason Comments Gynecologic Exam Reason Comments Suspicious Skin Lesion Reason Comments Suture / Staple Removal Care Teams (unrecognized sec tion and content) Senior Marketing Coordinator Relationship Specialty Start Date End Date Domingo Snyder MD [address] [place] [address] Referring Family Medicine 09/01/22 Team Status: Active [...] December 02, 2024 End: December 02, 2024 Senior Marketing Coordinator Relationship Specialty Start Date End Date Domingo Snyder MD [address] [place] [address] PCP - General Family Medicine 01/05/25 Senior Marketing Coordinator Relationship Specialty Start Date End Date Domingo Snyder MD [address] [place] [address] PCP - General Family Medicine 01/05/25 Senior Marketing Coordinator Relationship Specialty Start Date End Date Domingo Snyder MD [address] [place] [id number] PCP - General Family Medicine 01/05/25 Team Status: Inactive Member Role Status Dates Javi Tanner PA-C Attending Provider Active Start: January 21, 2025 End: January 21, 2025 Senior Marketing Coordinator Relationship Specialty Start Date End Date Domingo Snyder MD [address] [place] [address] PCP - General Family Medicine 01/05/25 Senior Marketing Coordinator Relationship Specialty Start Date End Date Domingo Snyder MD [address] [place] [address] PCP - General Family Medicine 04/13/23 Senior Marketing Coordinator Relationship Specialty Start Date End Date Domingo Snyder MD [address] [place] [facility] [address] PCP - General Family Medicine 04/13/23 Senior Marketing Coordinator Relationship Specialty Start Date End Date Domingo Snyder MD [address] [place] [facility] [address] PCP - General Family Medicine 04/13/23 Senior Marketing Coordinator Relationship Specialty Start Date End Date Domingo Snyder MD [address] [place] [facility] [address] PCP - General Family Medicine 04/13/23 Senior Marketing Coordinator Relationship Specialty Start Date End Date Domingo Snyder MD [address] [place] [address] PCP - General Family Medicine 04/13/23 Team Status: Inactive Member Role Status Dates Vj Frarie DO Attending Provider Active Start: May 05, 2025 End: May 05, 2025 Senior Marketing Coordinator Relationship Specialty Start Date End Date Domingo Snyder MD [address] [place] [address] PCP - General Family Medicine 04/13/23 Senior Marketing Coordinator Relationship Specialty Start Date End Date Domingo Snyder MD [address] [place] [address] PCP - General Family Medicine 04/13/23 INFORMATION SOURCE (unrecogn ized section and content) DATE CREATED AUTHOR 09/06/2022 [facility] DATE CREATED AUTHOR AUTHOR'S ORGANIZ ATION 02/19/2023 [facility] DATE CREATED AUTHOR AUTHOR'S ORGANIZ ATION 12/06/2023 [facility] DATE CREATED AUTHOR AUTHOR'S ORGANIZ ATION 10/05/2024 [place] DATE CREATED AUTHOR AUTHOR'S ORGANIZ ATION 01/16/2025 [facility] DATE CREATED AUTHOR AUTHOR'S ORGANIZ ATION 02/03/2025 [facility] DATE CREATED AUTHOR AUTHOR'S ORGANIZ ATION 04/05/2025 [facility] DATE CREATED AUTHOR AUTHOR'S ORGANIZ ATION 05/09/2025 [facility] DATE CREATED AUTHOR AUTHOR'S ORGANIZ ATION 05/16/2025 [facility] EPIC Goals (unrecognized section [...] mL IV syringe (COMPLETED) 2,000 mg, IntraVENous, MANAGER BODY TO O.R., On 01/22/25 at 0930, For [...] Tamy Autohold - Reason: Unreviewed Transfer Orders)1027 ([facility] Unhold - Provider: Anastasiya Coates RN)1900 (Due - Provider: Sudeep Ordonez [facility]) enoxaparin (LOVENOX) injection 40 mg [...] Comment: Pt. educated on importance and intent)0928 ([facility] Hold - Provider: [facility] [employer] - Reason: Unreviewed Transfer Orders)1027 ([facility] Unhold - Provider: Anastasiya Coates RN) ibuprofen [...] (Given - Provid er: Anastasiya Coates RN)927 ([facility] Hold - Provider: Tamy Autohold - Reason: Unreviewed Transfer Orders)1027 ([facility] Unhold - Provider: Anastasiya Coates RN) Continuous Medication Order 01/20/2025 01/21/2025 01/22/2025 0.9 % sodium chloride infusion (CANCELED) IntraVENous, at 150 mL/hr, CONTINUOUS, Starting on 01/22/25 at 0015 0002 (New Bag - Prov ider: Aundrea Beltre RN)0557 (New Bag - Provider: Aundrea Beltre, FELA)0928 ([facility] Hold - Provider: [facility] [employer] - Reason: Unreviewed Transfer Orders)1027 ([facility] Unhold - Provider: Anastasiya Coates RN) PRN Medication Order 01/20/2025 01/21/2025 01/22/2025 acetaminophen (TYLENOL) suppository 650 mg(Linked Group 1) 650 mg, Rectal, EVERY 6 HOURS PRN, Starting on 01/21/25 at 2346, Until Discontinued, Pain Mild (1-3), allowed for higher pain score per patient request, Fever, For temp greater than 100.4 F (38 C), Administer if oral route cannot be used. 09 ([facility] Hold - Pro vider: [facility] [employer] - Reason: Unreviewed Transfer Orders)102 ([facility] Unhold - Provider: Anastasiya Coates RN) acetaminophen (TYLENOL) tablet 650 mg(Linked Group 1) 650 mg, Oral, EVERY 6 HOURS PRN, Starting on Sat 4/25 at 2346, Until Discontinued, Pain Mild (1-3), allowed for higher pain score per patient request, Fever, For temp greater than 100.4 F (38 C), Maximum dose of acetaminophen is 4000 mg from all sources in 24 hours. 927 ([facility] Hold - Pro vider: [facility] [employer] - Reason: Unreviewed Transfer Orders)102 ([facility] Unhold - Provider: Anastasiya Coates RN) magnesium [...] Patients with CrCl less than 30ml/min 927 ([facility] Hold - Pro vider: [facility] [employer] - Reason: Unreviewed Transfer Orders)1027 ([facility] Unhold - Provider: Anastasiya Coates RN) morphine [...] Anastasiya Coates RN)0928 ([facility] Hold - Provider: [facility] [employer] - Reason: Unreviewed [...] Anastasiya Coates RN)0928 ([facility] Hold - Provider: [facility] [employer] - Reason: Unreviewed [...] Aundrea Beltre RN)0928 ([facility] Hold - Provider: [facility] [employer] - Reason: Unreviewed Transfer Orders)1027 ([facility] Unhold - Provider: Anastasiya Coates RN) ondansetron (ZOFRAN-ODT) disintegrating tablet 4 mg(Linked Group 3) 4 mg, Oral, EVERY 8 HOURS PRN, Starting on 4/5/25 at 2346, Until Discontinued, Nausea, Vomiting 0001 (See Alternativ e - Provider: Aundrea Beltre RN)0554 (See Alternative - Provider: Aundrea Beltre RN)0928 ([facility] Hold - Provider: [facility] [employer] - Reason: Unreviewed Transfer Orders)1027 ([facility] Unhold - Provider: Anastasiya Coates RN) oxyCODONE (ROXICODONE) immediate release tablet 2.5 mg(Linked Group 4) 2.5 mg, Oral, EVERY 4 HOURS PRN, Starting on 4/5/25 at 2346, Until Discontinued, Pain Moderate (4-6), allowed for higher pain score per patient request 0000 (See Alternativ e - Provider: Aundrea Beltre RN)0928 ([facility] Hold - Provider: [facility] [employer] - Reason: Unreviewed Transfer Orders)1027 ([facility] Unhold - Provider: Anastasiya Coates RN)1053 (See Alternative - Provider: Anastasiya Coates RN) oxyCODONE (ROXICODONE) immediate release tablet 5 mg(Linked Group 4) 5 mg, Oral, EVERY 4 HOURS PRN, Starting on Sat 4//25 at 2346, Until Discontinued, Pain Severe (7-10) 0000 (Given - Provid er: Aundrea Beltre RN)0928 ([facility] Hold - Provider: [facility] [employer] - Reason: Unreviewed Transfer Orders)1027 ([facility] Unhold - Provider: Anastasiya Coates RN)1053 (Given - Provider: Anastasiya Coates RN) polyethylene glycol (GLYCOLAX) packet 17 g 17 g, Oral, DAILY PRN, Starting on Sat 4/25 at 2346, Until Discontinued, Constipation, First line therapy for constipation 0928 ([facility] Hold - Pro vider: [facility] [employer] - Reason: Unreviewed Transfer Orders)1027 ([facility] Unhold - Provider: Anastasiya Coates RN) potassium [...] dilute if GI adverse effects occur. 927 ([facility] Hold - Pro vider: [facility] [employer] - Reason: Unreviewed Transfer Orders)102 ([facility] Unhold - Provider: Anastasiya Coates RN) potassium [...] half and each half swallowed separately. 927 ([facility] Hold - Pro vider: [facility] [employer] - Reason: Unreviewed Transfer Orders)1026 ([facility] Unhold - Provider: Anastasiya Coates RN) potassium [...] with CrCl less than 30 mL/min. 927 ([facility] Hold - Pro vider: [facility] [employer] - Reason: Unreviewed Transfer Orders)1027 ([facility] Unhold - Provider: Anastasiya Coates RN) prochlorperazine [...] Balwinder Ashton RN)1440 ([facility] Hold - Provider: [facility] [employer] - Reason: Unreviewed [...] Balwinder Ashton RN)1440 ([facility] Hold - Provider: [facility] [employer] - Reason: Unreviewed Transfer Orders)1744 ([facility] Unhold - Provider: Balwinder Ashton RN) 1203 (Given - Provider: Maryam Avila) ondansetron (ZOFRAN-ODT) disintegrating tablet 4 mg(Linked Group 1) 4 mg, Oral, EVERY 8 HOURS PRN, Starting on Julia 01/26/25 at 1726, Until Discontinued, Nausea, Vomiting 0806 (See Alternative - Provider: Balwinder Ashton RN)1440 ([facility] Hold - Provider: [facility] [employer] - Reason: Unreviewed [...] or Central Line = 20 mL/lumen 1440 ([facility] Hold - Provider: Tamy Autohold - Reason: Unreviewed Transfer Orders)1744 ([facility] Unhold - Provider: Balwinder Ashton RN) Linked [...] BE BASED ON THE PRIMARY CLINICAL RECORDS. [employer] provides no warranty or guarantee of the accuracy or completeness of information in this document.
--- OUTSIDE RECORDS SUMMARY | 2025-08-04 07:38 | XMS_ITS | Encounter Summary ---
Author Organization [facility] Address [address] [facility] [place] [address] Care Team Providers Care Software Packaging Engineer Name Role Phone Ignacio Das MD Primary Care Provider [phone] Encounter Details Date Type Department Care Team ([facility] Contact Info) Description 05/27/2023 Abstract [facility] [address] [place] [phone] Jefferson Gibbs DO [address], [facility] Social History Tobacco Use Types Packs/Day [...] Office Visit [place] [facility] [address] [place] [phone] Jefferson Gibbs DO [address], [place] [address] 05/29/2026 1:15 PM EDT Office Visit [facility] [address] [place] [address] Alejandra Leiva MD [address] [place] [address] documented as of this encounter Visit Diagnoses Not on filedocumented in this encounter Care Teams Software Packaging Engineer Relationship Specialty Start Date End Date Ignacio Das MD [address] [place] [address] PCP - General Family Medicine 04/13/23 documented as of this encounter
--- OUTSIDE RECORDS SUMMARY | 2025-08-04 07:38 | XMS_ITS | Clinical Summary ---
Author Organization [employer] tem Address [id number] [address] [place] [address] Care Team Providers Care Wafer Polishing Lead Worker Name Role Phone Ignacio Das MD Primary Care Provider [phone] Allergies No known active allergies Medications prenat.vits,rodger,min [...] COPATH - 02/03/2018 12:11 PM EDT [facility] [address] [place] [address] Gynecologic Cytology Consultation Patient Name: DIANA ENAMORADO : 1990 (Age: 27) Gender: F Taken: 01/22/2018 Reported: 02/03/2018 Physician(s): Yuniel Rosenberg MD ([phone]) Copy To: Med. Rec. #: [id number] Acct: # [id number] Final Cytologic Interpretation Cervical (with or without endocervical) ThinPrep: Satisfactory for evaluation. A transformation zone component is present. NEGATIVE FOR INTRAEPITHELIAL LESION OR MALIGNANCY. Shift in greg suggestive of bacterial vaginosis. jja/02/03/2018 Electronically Signed Out By CARON Galeano (ASCP) Date of Last Menstrual Period: 12/25/2017 Other Clinical Conditions: Screening/Routine z01.419 County Agricultural Agent exam wo/abn findings Source of Specimen Cervical (with or without endocervical) ThinPrep Thin Prep Pap (DIRECTOR WATER AND WASTE SERVICES) Fee Code(s): G0145 The Pap test is a screening test with an inherent, but low, probability of error. The Pap test is primarily effective for the diagnosis and prevention of squamous cell carcinoma. Regular screening is critical for prevention. ThinPrep liquid-based slides, which meet the Frame Fixer criteria for automated screening, have been screened by the ThinPrep Imaging System (as of 07/05/07) along with an additional manual rescreening by a sand cutter operator and, if indicated, by a pathologist.Yuniel [...] 9:20 AM 08/14/2018 4:36 PM Care Teams Wafer Polishing Lead Worker Relationship Specialty Start Date End Date Ignacio Das MD PCP - General Family Medicine 09/17/20
--- OUTSIDE RECORDS SUMMARY | 2025-08-04 07:38 | XMS_ITS | Encounter Summary ---
Author Organization [facility] Address [address] [place] [address] Care Team Providers Care Automobile Rental Representative Name Role Phone Ignacio Das MD Primary Care Provider [phone] Encounter Details Date Type Department Care Team ([facility] Contact Info) Description 05/06/2023 Abstract [facility] [address] [facility] [place] [phone] Jefferson Gibbs DO [address] [place] [address] Social History Tobacco Use Types Packs/Day Years [...] Upcoming Encounters Date Type Department Care Team ([facility] Contact Info) Description 04/09/2026 9:00 AM EDT Office Visit [place] [facility] [address] [place] [phone] Jefferson Gibbs DO [address] [place] [id number] 05/29/2026 1:15 PM EDT Office Visit [facility] [address] [place] [address] Alejandra Leiva MD [address] [facility] [address] [place] [address] documented as of this encounter Visit Diagnoses Not on filedocumented in this encounter Care Teams Automobile Rental Representative Relationship Specialty Start Date End Date Ignacio Das MD [address] [facility] [place] [address] PCP - General Family Medicine 04/13/23 documented as of this encounter
--- OUTSIDE RECORDS SUMMARY | 2025-08-04 07:38 | XMS_ITS | Encounter Summary ---
Author Organization [facility] Address [address] [place] [address] Care Team Providers Care Jewish Thought Professor Name Role Phone Ignacio Das MD Primary Care Provider [phone] Encounter Details Date Type Department Care Team (Late Contact Info) Description 05/15/2023 Abstract [facility] [address] [facility] [place] [phone] Tamiko Chacon PA [address] [facility] [address] [place], [place] [address] Social History Tobacco Use Types Packs/Day Years [...] AM EDT Office Visit [place] [facility] [address] [facility] [place] [phone] Jefferson Gibbs DO [address] [facility] [address] [place], [place] [address] 05/29/2026 1:15 PM EDT Office Visit [facility] [place] [facility] [address] [place] [address] [place] [phone] Alejandra Leiva MD [address] [facility] [address] [place] [address] documented as of this encounter Visit Diagnoses Not on filedocumented in this encounter Care Teams Jewish Thought Professor Relationship Specialty Start Date End Date Ignacio Das MD [address] [place] [address] PCP - General Family Medicine 04/13/23 documented as of this encounter
--- OUTSIDE RECORDS SUMMARY | 2025-08-04 07:38 | XMS_ITS | Encounter Summary ---
Author Organization [facility] tem Address [id number] [address] [place] [address] Care Team Providers Care Customer Retention Specialist Name Role Phone Ignacio Das MD Primary Care Provider [phone] Encounter Details Date Type Department Care Team (Late st Contact Info) Description 07/26/2020 Abstract [facility]aternal- Medicine at [facility] [address] [place] [address] Billy Cazares MD Social History Tobacco Use Types Packs/Day Years [...] on filedocumented in this encounter Care Teams Customer Retention Specialist Relationship Specialty Start Date End Date Ignacio Das MD PCP - General Family Medicine 09/17/20 documented as of this encounter
--- NOTE | 2025-08-04 07:43 | MR_ITS ---
[facility] [place] [id number] Patient Name: CORI BARRIGA MRN: [id number] date: 1990 Sex: F Assigned Patient Location: MRI Current Patient Location: MRI Accession/Order Number: [id number] Exam Date: 08/04/2025 07:50 Report Date: 08/04/2025 09:14 At the request of: DOMINGO SNYDER MD Procedure: MR head/brain wo/w con MRI BRAIN WITHOUT AND WITH INTRAVENOUS CONTRAST CLINICAL DATA: Dizziness, weakness, headaches and paresthesias COMPARISON: CT brain 07/19/2021 Multiecho, multiplanar imaging of the brain was performed before and after intravenous administration of 17 mL of Dotarem. The ventricles are normal in size and position. There are no areas of abnormal signal intensity or enhancement within the supra or infratentorial brain. There is no restricted diffusion to suggest a recent ischemic event. No extra-axial collections or mass effect are seen. No midline abnormalities are noted. The imaged paranasal sinuses and mastoid air cells are clear. There is still a 4 - 5 mm plaque-like mass at the scalp at the top of the head. Signal parallels fat and this may be lipoma. MR/MR head/brain wo/w con IMPRESSION: NO ACUTE INTRACRANIAL FINDINGS. Impression dictated by: Imani Celis M.D. 08/04/2025 9:14 AM Dictation Location: [place] [address] Electronically authenticated by: [id number] Y Date: 08/04/2025 09:14
== END 2025-08-04 07:35 | disposition home or self-care (01) ==
LOC: MRI 07:35
PROVIDERS: PCP Family Medicine; Visit Provider Family Medicine
DX: K52.9 Noninfective gastroenteritis and colitis, unspecified (principal); R20.2 Paresthesia of skin
CPT/HCPCS: 70553; A9575

== ENCOUNTER 2025-08-15 09:02 | Outpatient (OUT) | payer OTHER, SELFPAY ==
[2025-07-25 08:44] LABS: Alanine Aminotransferase 34 U/L (14-59); Albumin Globulin Ratio 1.1; Albumin Level 4.0 g/dL (3.4-5.0); Alkaline Phosphatase 67 U/L (46-116); Anion Gap 12.3; Aspartate Amino Transferase 20 U/L (15-37); Blood Urea Nitrogen 9.0 mg/dL (7.0-18.0); Calcium 8.8 mg/dL (8.5-10.1); Carbon Dioxide 27.3 mmol/L (21.0-32.0); Chloride 105 mmol/L (98-107); Estimated GFR (African America >60 (>=60 mL/min/1.73m^2); Estimated GFR (Non-African Ame >60 (>=60 mL/min/1.73m^2); Globulin 3.5 g/dL; Glucose 94 mg/dL (74-106); Magnesium 1.8 mg/dL (1.8-2.4); Potassium 3.6 mmol/L (3.5-5.1); Sodium 141 mmol/L (136-145); Total Protein 7.5 g/dL (6.4-8.2)
--- OUTSIDE RECORDS SUMMARY | 2025-08-15 09:06 | XMS_ITS | Clinical Summary ---
Author Organization [employer] tem Address [id number] [address] [place] [address] Care Team Providers Care Alteration Tailor Name Role Phone Ignacio Das MD Primary Care Provider [phone] Allergies No known active allergies Medications MedicationSigDispense QuantityRefillsLast FilledStart DateEnd DateStatus prenat.vits,rodger,voq-nego-mqdqz ( VITAMIN) tablet Take 1 tablet by mouth daily.Active ondansetron ODT (ZOFRAN-ODT) 4 mg disintegrating tablet Dissolve 4 mg on tongue every 6 (six) hours as needed for nausea or vomiting. Active citalopram (CeleXA) 20 mg tablet Take 20 mg by mouth daily.Active promethazine (PHENERGAN) 12.5 mg tablet Take 12.5 mg by mouth every 6 (six) hours as needed for nausea or vomiting. Active Active Problems ProblemNoted DateDiagnosed DateHistory of gestational ddramzfd93/08/2020 Nuhurvjmsn80/08/1456Slfdbot79/08/2020History of luizycgmv19/08/2020Term delivery with labor in third wputdzmxd80/19/2018Anti-M isoimmunization affecting , ilrrigdcve93/31/2018Intrauterine /03/2018Well woman exam with routine gynecological exam01/22/20180196Lennnw26/18/3108Lyiotnxpnob09/18/2017 Immunizations ImmunizationAdministration DatesNext DueInfluenza, Injectable, quadrivalent (PF) 08/08/2018Tdap1 Family History Medical HistoryRelationNameCommentsHyperlipidemiaFatherThyroid diseaseFather CataractsMaternal GrandmotherDiabetesMaternal GrandmotherThyroid diseaseMaternal GrandmotherTuberculosisMaternal GrandmotherHypertensionMotherHeart disease Paternal GrandfatherHyperlipidemiaPaternal GrandmotherGlaucomaNeg HxMacular degenerationNeg HxRelationNameStatusCommentsBrotherAliveFatherAliveMaternal GrandfatherDeceasedMaternal GrandmotherAliveMotherAlivePaternal Grandfather DeceasedPaternal GrandmotherDeceasedSisterAlive Social History Tobacco UseTypesPacks/DayYears UsedDateSmoking Tobacco: NeverSmokeless Tobacco: NeverAlcohol UseStandard Drinks/WeekCommentsNo0 (1 standard drink = 0.6 oz pure alcohol)ChildcareAnswerDate EqyzarzxLmbeaiefmTlgdyit18/12/2019EmploymentAnswer Date GtnancxaRcsaipndecGuvbosw45/12/2019Purpose - LifeAnswerDate RecordedPurpose and direction in sckpBpbwxna22/12/2021CommentsNoSex and Gender InformationValueDate RecordedSex Assigned at BirthNot on fileLegal SexFemale 05/24/2015 11:49 AM EDTGender IdentityNot on fileSexual OrientationNot on file Last Filed Vital Signs Vital SignReadingTime TakenCommentsBlood Dytejxhq28/6609/17/2020 1:33 PM EST Rlcln98737/30/2020 1:33 PM DLTYmnlektredk67.5 ??C (97.7 ??F)07/29/2019 7:21 AM EDTRespiratory Lzbd6049 7:21 AM EDTOxygen Tnlkmazdnw460%07/29/2019 8:49 AM EDTInhaled Oxygen Concentration--Bthdhf809.5 kg (230 lb 6.1 oz)09/17/2020 1:33 PM AWKYcjcwn256.6 cm (5' 6 )07/29/2019 7:21 AM EDTBody Mass Index37.18 07/29/2019 7:21 AM EDT Plan of Treatment Health MaintenanceDue DateLast DoneCommentsDepression Pudkflzgc94/27/2003Tobacco Rrnnhozbg93/27/2003Adult BMI Hnyotqooq70/27/2009Pap Smear104 Influenza Eguemat27/, 08/08/2018, 08/22/2009DTaP,Tdap and Td Vaccines (6 - Td or Tdap), 04/10/1993, 03/26/1992, Additional history exists Medical Devices Not on file Procedures Procedure NamePriorityDate/TimeAssociated DiagnosisCommentsPAP SMEARRoutine 01/22/2018 9:35 AM EDT from Last 3 Months or Most Recently Relevant to Health Maintenance Results * Pap Smear (01/22/2018 9:35 AM EDT)Specimen (Source)Anatomical Location / LateralityCollection Method / VolumeCollection TimeReceived TimeCervical TP 01/22/2018 9:35 AM EDT01/22/2018 9:35 AM EDT Narrative COPATH - 02/03/2018 12:11 PM EDT [facility] ? [address] [place] [address] ? [place] [address] ? Gynecologic Cytology Consultation ? Patient Name: CORI ENAMORADO : 1990 (Age: 27) Gender: F Taken: 01/22/2018 Reported: 02/03/2018 Physician(s): Yuniel Rosenberg MD ([phone]) Copy To: ?? [facility]. Rec. #: [id number] Acct: # [id number] Final Cytologic Interpretation Cervical (with or without endocervical) ThinPrep: Satisfactory for evaluation. A transformation zone component is present. NEGATIVE FOR INTRAEPITHELIAL LESION OR MALIGNANCY. Shift in greg suggestive of bacterial vaginosis. ?? jja/02/03/2018 Electronically Signed Out By ?CARON Galeano (ASCP) Date of Last Menstrual Period: ? 12/25/2017 Other Clinical Conditions: Screening/Routine z01.419 Clinical Research Nurse exam wo/abn findings Source of Specimen Cervical (with or without endocervical) ThinPrep ? Thin Prep Pap (SWITCHBOARD OPERATOR HELPER) Fee Code(s): ?? G0145 The Pap test is a screening test with an inherent, but low, probability of error. The Pap test is primarily effective for the diagnosis and prevention of squamous cell carcinoma. Regular screening iscritical for prevention. ThinPrep liquid-based slides, which meet the Customer Assistance Representative criteria for automated screening, have been screened by the ThinPrep Imaging System (as of 07/05/07) along with an additional manual rescreening by a wire coating machine operator and, if indicated, by a pathologist.Yuniel Rosenberg, 02/02/2018 Authorizing ProviderResult TypeResult StatusRobert Walter Rosenberg DO PATHOLOGY/CYTOLOGY ORDERABLESFinal ResultPerforming OrganizationAddress City/State/ZIP CodePhone Number COPATH from Last 3 Months or Most Recently Relevant to Health Maintenance Insurance Advance Directives * Full Code (Latest Code Status on File) Date ActivatedDate HqchkjygjovZpaiqmij44/2/2018 12:30 AM08/20/2018 6:47 PM * Full Code Date ActivatedDate DjwsojgpbckTlzvwowj38/20/2018 9:20 AM08/14/2018 4:36 PM Care Teams Team MemberRelationshipSpecialtyStart DateEnd Date Ignacio Das MD PCP - GeneralFamily Gqucgtiq12/30/20
--- OUTSIDE RECORDS SUMMARY | 2025-08-15 09:06 | XMS_ITS | Clinical Summary ---
Author Organization [facility] Address [address] [place] [address] Care Team Providers Care Social Insurance Specialist Name Role Phone Ignacio Das MD Primary Care Provider [phone] Allergies No known active allergies Medications MedicationSigDispense QuantityRefillsLast FilledStart DateEnd DateStatus ibuprofen 800 MG tablet Take 800 mg by mouth every 8 (eight) hours05/07/2023ctive nabumetone (Relafen) 750 MG tablet Take 750 mg by mouth as needed in the morning and 750 mg as needed in the evening.07/17/2023ctive Effer-K 25 MEQ effervescent tablet 06/23/2023ctive estradiol (Climara) 0.05 MG/24HR Indications:Night sweatsPlace 1 patch over 7 days on the skin 1 (one) time per week 12 patch /ctive Active Problems ProblemNoted DateDiagnosed DateMass of left wnwgmz9801/08/2024ipolar disorder 06/01/20233073Jemkgwe44/14/2023Entrapment of left ulnar nerve06/01/2023Feeling of incomplete bladder vznoxtsp98/14/2023Flank pain06/01/2023Frequency of urination 06/01/2023History of kidney vtzzwn4406/01/20238626Hujkajdzsydecl84/14/2023 Tkbqzwncnwypt47/14/2023Lesion of ulnar nerve06/01/2023Mass of scalp06/01/2023 Muscle pain06/01/20235827Mgnnwvvmvmgloo40/14/9064Cbwacuig18/14/2023Overweight 06/01/20233007Yudxgwbhmnxiak43/14/2023idney stone06/01/2023Retroflexion of uterus 06/01/2023Sprain of calcaneofibular aekhsuol62/14/2023Streptococcal pharyngitis 06/01/2023Stricture of female mvuqnhy4906/01/2023Stricture of vdrjlm0506/01/2023 Superficial lprshepftvngaybb39/14/2023Urge ehoqjcabszlg20/14/2023Urinary urgency 06/01/2023UTI (urinary tract infection)06/01/2023bnormal weight gain04/10/2023 Body mass index (BMI) of 40.1 to 44.9 in adult04/10/2023Encounter for follow-up examination after completed treatment for conditions other than malignant ne kkvqlx0904/10/2023IUD camgwqqpseghu79/23/2023Menorrhagia with regular cycle 04/10/20235926Edxhpnq36/08/2020History of msehmqbfh34/08/2020History of gestational pulaqbvu41/08/2020Term delivery with labor in third trimester ([facility]) 08/06/2018Anti-M isoimmunization affecting , 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[facility]) 03/18/2018Intrauterine ([facility])02/18/20180143Ekpanoaudal00/18/2017 Resolved Problems ProblemNoted DateDiagnosed DateResolved DateEncounter for gynecological examination (general) (routine) without abnormal byttxqjs10 Encounters DateTypeDepartmentCare FaabSrcckerjtqt92/11/2025 2:45 PM EDTOffice Visit [facility] [place] [facility] [address] [place] [address] Alejandra Leiva MD Encounter for removal of sutures (Primary Dx)05/29/2025amboo flowsheet [facility] [place] [facility] [address] [place] [address] Alejandra Leiva MD 05/29/20256382Neeqkf01/01/2025Results Follow-Up [facility] [place] [facility] [address] [place] [address] Alejandra Leiva MD Dermatopathology exam05/15/2025 3:30 PM EDTOffice Visit [facility] [place] [facility] [address] [place] [address] Alejandra Leiva MD Neoplasm of unspecified behavior of bone, soft tissue, and skin (Primary Dx) 05/15/20251393Mhmybw60/28/2025Telephone [facility] [address] [place] [address] Jefferson Gibbs DO from Last 3 Months Family History Medical HistoryRelationNameCommentsDiabetesMaternal GrandmotherHypertension MotherHeart diseasePaternal GrandfatherMelanomaNeg HxRelationNameStatusComments FatherAliveMaternal GrandfatherDeceasedMaternal GrandmotherAliveMotherAlive Paternal GrandfatherDeceasedPaternal GrandmotherDeceasedSiblingAlive Social History Tobacco UseTypesPacks/DayYears UsedDateSmoking Tobacco: NeverSmokeless Tobacco: Never Tobacco Cessation:Counseling Given: Not Answered Alcohol UseStandard Drinks/WeekCommentsNever0 (1 standard drink = 0.6 oz pure alcohol)CommentsNoSex and Gender InformationValueDate RecordedSex Assigned at BirthNot on fileLegal VdnMigxsq63/15/2023 11:20 PM EDTGender IdentityNot on fileSexual OrientationNot on file Last Filed Vital Signs Vital SignReadingTime TakenCommentsBlood Kuymjjcg171/7206 1:06 PM EDT Pulse--Temperature--Respiratory Rate--Oxygen Saturation--Inhaled Oxygen Concentration--Fhrnwh17.9 kg (185 lb)04/05/2025 1:06 PM DMCVswykv687.6 cm (5' 6 )06/16/2023 2:48 PM EDTBody Mass Index29.8606/16/2023 2:48 PM EDT Plan of Treatment DateTypeDepartmentCare Team (Latest Contact Info)Czfmiyfgmhk50/22/2026 9:00 AM EDTOffice Visit [facility] [address] [place] [address] Jefferson Gibbs DO [address] [address] 05/29/2026 1:15 PM EDTOffice Visit [facility] [address] [place] [address] Alejandra Leiva MD [address] [place] [address] Procedures Procedure NamePriorityDate/TimeAssociated DiagnosisCommentsSKIN REPAIRRoutine 05/15/2025 3:41 PM EDT Neoplasm of unspecified behavior of bone, soft tissue, and skin SKIN RLMEIJGXYmolbyk81/28/2025 3:41 PM EDT Neoplasm of unspecified behavior of bone, soft tissue, and skin DERMATOPATHOLOGY RUZCSokougg87/28/2025 12:00 AM EDT Neoplasm of unspecified behavior of bone, soft tissue, and skin from Last 3 Months Results * Skin repair (05/15/2025 3:41 PM EDT) Narrative Falguni Hui LPN - 05/15/2025 3:41 PM EDT Complexity: Intermediate Final length (cm): ??4.2 Reason for type of repair: allow closure of the large defect ?? Undermining: edges undermined ?? Undermining comment: ??The surrounding tissue was undermined until the skin edges could be approximated without undue tension. Any tissue redundancies were removed. Subcutaneous layers (deep stitches): Suture size: ??3-0 Suture type comment: ??Biosyn Stitches: ??Buried horizontal mattress (Closure was performed in a layered fashion with subcutaneous tissue closed first using tension-bearing absorbable sutures to the level of the superficial fascia.) Fine/surface layer approximation (top stitches): Suture size: ??4-0 Suture type: Prolene (polypropylene) ?? Stitches: simple running ?? Stitches comment: ??Epicuticular skin sutures were then placed with minimal tension. Suture removal (days): ??14 Outcome: patient tolerated procedure well with no complications ?? Post-procedure details: sterile dressing applied and wound care instructions given ?? Post-procedure details comment: ??It was emphasized to the patient to contact the office for any signs of infection, uncontrollable bleeding, or complications. Dressing type: pressure dressing ?? Authorizing ProviderResult TypeResult StatusEmily A Petitti MDDERM PROCEDURE ORDERABLESFinal Result * Skin excision (05/15/2025 3:41 PM EDT) Narrative Falguni HuiCLOVIS - 05/15/2025 3:41 PM EDT Lesion length (cm): 0.7 Lesion width (cm): ??0.7 Margin per side (cm): ??0.4 Total excision diameter (cm): ??1.5 Informed consent: discussed and consent obtained ?? Informed consent comment: ??Risks and possible complications were discussed as noted on the consent form. The consent form was signed prior to the procedure. Timeout: patient name, date of , surgical site, and procedure verified ?? Timeout comment: ??Patient and provider identified site. Site was marked and excision was drawn out. Photo was taken and shown to patient, patient verified this is the correct site. Procedure prep: ??Patient was prepped and draped in usual sterile fashion (The planned incision lines were drawn along relaxed skin tension lines, if possible, to minimize scarring and deformity of surrounding structures.) Prep type: ??Chlorhexidine Anesthesia: the lesion was anesthetized in a standard fashion ?? Anesthesia comment: ??The local anesthetic was injected to create a field block at the site of the procedure. Anesthetic: ??1% lidocaine w/ epinephrine 1-100,000 buffered w/ 8.4% NaHCO3 Instrument used: #15 blade ?? Instrument used comment: ??Incisions were made as drawn, and the surrounding tissue was undermined until the skin edges could be approximated without undue tension. Any tissue redundancies were removed. Hemostasis achieved with: electrodesiccation ?? Additional details: ??Amount of lidocaine used: 6.0 ml Estimated blood loss: 1.0 ml Authorizing ProviderResult TypeResult StatusEmily A Petitti MDDERM PROCEDURE ORDERABLESFinal Result * Dermatopathology exam (05/15/2025 12:00 AM EDT)ComponentValueRef RangeTest MethodAnalysis TimePerformed AtPathologist SignatureSPECIMEN TYPE SPECIMEN: RIGHT SHOULDER- POSTERIOR [facility] ICD10 CodeD23.60[facility] DIAGNOSTICSPROTOCOLEXC - EXCISIONAURORA DIAGNOSTICS Final DiagnosisSCAR AND WOUND REPAIR REACTION, EXCISED (SEE COMMENT). COMMENT: A residual or recurrent melanocytic lesion is not seen. This case is reviewed in conjunction with the previous biopsy as listed in the case history summary. [facility] DIAGNOSTICSGross Text 3 blocks, (tips in 1) (3 in 2, 3) (jg/kb) (05/17/25) [facility]SMicroscopic DescriptionMicroscopic examination performed. 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
--- NOTE | 2025-08-15 09:14 | FL_ITS ---
The [address] [address] Patient Name: CORI BARRIGA MRN: [id number] date: 1990 Sex: F Assigned Patient Location: PR Current Patient Location: PR Accession/Order Number: [id number] Exam Date: 08/15/2025 09:40 Report Date: 08/15/2025 13:43 At the request of: DOMINGO SNYDER MD Procedure: FL cineradiography AIR CONTRAST UPPER GI SERIES WITH SMALL BOWEL SERIES CLINICAL HISTORY: Gastroenteritis K52.9 COMPARISON: Esophagram 07/25/2025 TECHNIQUE: Multiple images were obtained during a upper GI series and small bowel follow-through. Fluoroscopy time 4.5 minutes. FINDINGS: The esophagus is normal in caliber without evidence of stricture, mass or ulcer. No gastroesophageal reflux. No tertiary contractions. 7 demonstrates diffuse increased thickening of the roof full suggestive of underlying gastritis. No definitive mass or ulcer. There was delayed transit of the oral contrast to the duodenal bulb and C-loop. Imaging of the duodenal bulb and C-loop demonstrate no focal abnormality. Oral contrast is reached the colon within 1.5 hours. Normal fold pattern is seen. No splaying of bowel loops. Spot imaging of the terminal ileum demonstrates no focal abnormality. Fluoroscopic interrogation of the small bowel demonstrates no lesions. FL/PR small bowel follow through IMPRESSION: FLUOROSCOPIC EVIDENCE OF GASTRITIS. THERE IS ASSOCIATED DELAYED TRANSIT OF THE STOMACH CONTENTS INTO THE DUODENAL BULB AND C-LOOP. CORRELATION WITH ENDOSCOPY IS RECOMMENDED. Impression dictated by: Jeffry Prasad Jr., D.O. 08/15/2025 1:43 PM Dictation Location: [place] [address] Electronically authenticated by: [id number] Y Date: 08/15/2025 13:43
--- NOTE | 2025-08-15 09:14 | FL_ITS ---
The [address] [address] Patient Name: CORI BARRIGA MRN: [id number] date: 1990 Sex: F Assigned Patient Location: [place] Current Patient Location: [place] Accession/Order Number: [id number] Exam Date: 08/15/2025 09:40 Report Date: 08/15/2025 13:43 At the request of: DOMINGO SNYDER MD Procedure: FL cineradiography AIR CONTRAST UPPER GI SERIES WITH SMALL BOWEL SERIES CLINICAL HISTORY: Gastroenteritis K52.9 COMPARISON: Esophagram 07/25/2025 TECHNIQUE: Multiple images were obtained during a upper GI series and small bowel follow-through. Fluoroscopy time 4.5 minutes. FINDINGS: The esophagus is normal in caliber without evidence of stricture, mass or ulcer. No gastroesophageal reflux. No tertiary contractions. 7 demonstrates diffuse increased thickening of the roof full suggestive of underlying gastritis. No definitive mass or ulcer. There was delayed transit of the oral contrast to the duodenal bulb and C-loop. Imaging of the duodenal bulb and C-loop demonstrate no focal abnormality. Oral contrast is reached the colon within 1.5 hours. Normal fold pattern is seen. No splaying of bowel loops. Spot imaging of the terminal ileum demonstrates no focal abnormality. Fluoroscopic interrogation of the small bowel demonstrates no lesions. FL/OK upper GI w air IMPRESSION: FLUOROSCOPIC EVIDENCE OF GASTRITIS. THERE IS ASSOCIATED DELAYED TRANSIT OF THE STOMACH CONTENTS INTO THE DUODENAL BULB AND C-LOOP. CORRELATION WITH ENDOSCOPY IS RECOMMENDED. Impression dictated by: Jeffry Prasad Jr., D.O. 08/15/2025 1:43 PM Dictation Location: [place] [address] Electronically authenticated by: [id number] Y Date: 08/15/2025 13:43
--- NOTE | 2025-08-15 09:14 | FL_ITS ---
The [address] [address] Patient Name: CORI BARRIGA MRN: [id number] date: 1990 Sex: F Assigned Patient Location: [place] Current Patient Location: [place] Accession/Order Number: [id number] Exam Date: 08/15/2025 09:40 Report Date: 08/15/2025 13:43 At the request of: DOMINGO SNYDER MD Procedure: FL cineradiography AIR CONTRAST UPPER GI SERIES WITH SMALL BOWEL SERIES CLINICAL HISTORY: Gastroenteritis K52.9 COMPARISON: Esophagram 07/25/2025 TECHNIQUE: Multiple images were obtained during a upper GI series and small bowel follow-through. Fluoroscopy time 4.5 minutes. FINDINGS: The esophagus is normal in caliber without evidence of stricture, mass or ulcer. No gastroesophageal reflux. No tertiary contractions. 7 demonstrates diffuse increased thickening of the roof full suggestive of underlying gastritis. No definitive mass or ulcer. There was delayed transit of the oral contrast to the duodenal bulb and C-loop. Imaging of the duodenal bulb and C-loop demonstrate no focal abnormality. Oral contrast is reached the colon within 1.5 hours. Normal fold pattern is seen. No splaying of bowel loops. Spot imaging of the terminal ileum demonstrates no focal abnormality. Fluoroscopic interrogation of the small bowel demonstrates no lesions. FL/FL cineradiography IMPRESSION: FLUOROSCOPIC EVIDENCE OF GASTRITIS. THERE IS ASSOCIATED DELAYED TRANSIT OF THE STOMACH CONTENTS INTO THE DUODENAL BULB AND C-LOOP. CORRELATION WITH ENDOSCOPY IS RECOMMENDED. Impression dictated by: Jeffry Prasad Jr., D.O. 08/15/2025 1:43 PM Dictation Location: [place] [address] Electronically authenticated by: [id number] Y Date: 08/15/2025 13:43
== END 2025-08-15 09:03 | disposition home or self-care (01) ==
LOC: FL 09:02
PROVIDERS: PCP Family Medicine; Visit Provider Family Medicine
DX: R79.0 Abnormal level of blood mineral (principal); E87.6 Hypokalemia; K52.9 Noninfective gastroenteritis and colitis, unspecified; R20.2 Paresthesia of skin
CPT/HCPCS: 74246; 74248; 76120

== ENCOUNTER 2025-09-04 17:54 | Emergency (ER) | payer OTHER, SELFPAY ==
[2025-09-04 18:49] VITALS: BP 131/82; PULSE 87; TEMP 36.7; O2SAT 100; BMI 28.2
[2025-09-04 20:09] LABS: Glucose Urine UA NEGATIVE (NEGATIVE)
--- NOTE | 2025-09-04 20:16 | ED_ITS ---
HPI - Abdominal Pain General Chief Complaint: Abdominal Pain Stated Complaint: L FLANK PAIN Time Seen by Provider: 09/04/25 19:51 Source: patient Mode of arrival: ambulance Limitations: no limitations History of Present Illness HPI narrative: chronic abdominal pain for at least 6 months. recent UGI with evidence of gastritis for which she is on Protonix. Describes abdominal pain after eating. Also past history of kidney stones and has required stent placement in the past. Now presents with left flank pain and urgency. No fever. Was seen by her PCP today and states antibiotics was prescribed. Now here because of increasing pain Related Data Home Medications ?Medication ?Instructions ?Recorded ?Confirmed estradiol 0.05 mg/24 hr weekly 1 patch transdermal .We ekly 05/05/25 05/05/25 transdermal patch meloxicam 15 mg tablet 15 mg PO DAILY 05/05/2504/18 methenamine hippurate 1 gram tablet 1 g PO BID 5 05/05/25 tizanidine 4 mg tablet 8 mg PO DAILY 05/05/2505/05 Previous Rx's ?Medication ?Instructions ?Recorded phenazopyridine 200 mg tablet 200 mg PO Q8H PRN pain 6 doses #6 10/02/24 (Pyridium) tabs ciprofloxacin HCl 500 mg tablet 500 mg PO BID #10 tabs 05/05/25 (Cipro) ketorolac 10 mg tablet 10 mg PO Q8H PRN pain 5 days #15 05/05/25 tabs promethazine 25 mg tablet 25 mg PO Q6H PRN nausea and 05/05/25 vomiting #20 tabs dicyclomine 10 mg capsule 10 mg PO QID PRN abdominal p ain 07/08/25 #20 caps ondansetron 4 mg disintegrating 4 mg PO Q6H PRN nausea and 07/08/25 tablet vomiting #20 tabs Allergies Allergy/AdvReac Type Severity Reaction Status Date / Time No Known Drug Allergies Allergy Verified 07/08/25 17:04 Review of Systems ROS Status of ROS 10 or more systems reviewed and unremark able except as noted in history and below [facility] Medical History (Updated 09/04/25 @ 22:11 by Seng Verdin MD) Anxiety and depression ?F41.9 - Anxiety disorder, unspecified (ICD-10) ?F32.A - Depression, unspecified (ICD-10) Kidney stones ?N20.0 - Calculus of kidney (ICD-10) Bipolar disorder ?F31.9 - Bipolar disorder, unspecified (ICD-10) Kidney stones ?N20.0 - Calculus of kidney (ICD-10) Surgical History (Updated 12/02/24 @ 17:36 by Tamiko Taylor) H/O: hysterectomy ?Z90.710 - Acquired absence of both cervix and uterus (ICD-10) History of ultrasound guided needle biopsy ?Z98.890 - Other specified postprocedural states (ICD-10) H/O local excision of skin lesion ?Z98.890 - Other specified postprocedural states (ICD-10) S/P extracorporeal shock wave therapy (03/2023) ?Z98.890 - Other specified postprocedural states (ICD-10) History of wisdom tooth extraction ?K08.409 - Partial loss of teeth, unspecified cause, unspecified class (ICD- 10) H/O LEEP ?Z98.890 - Other specified postprocedural states (ICD-10) History of endometrial ablation ?Z98.890 - Other specified postprocedural states (ICD-10) S/P cystoscopy ?Z98.890 - Other specified postprocedural states (ICD-10) S/P ureteral stent placement ?Z96.0 - Presence of urogenital implants (ICD-10) H/O ureteroscopy ?Z98.890 - Other specified postprocedural states (ICD-10) History of cholecystectomy ?Z90.49 - Acquired absence of other specified parts of digestive tract (ICD- 10) Family History Other Family history of hypertension Social History Within the past year, how often did you have a drink containing alcohol: monthly or less Smoking status: Never smoker Non-prescribed substance use: denies use 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 Highest level of school completed/degree received: Master's degree Are you now , , , , never or living with a partner: Little interest or pleasure in doing things: not at all Feeling down, depressed, or hopeless: not at all Gender Identity: female Exam Constitutional Vital Signs, click to edit/add: Last Vital Signs Temp 98.1 F 09/04/25 18:49 Pulse 87 09/04/25 18:49 Resp 16 09/04/25 18:49 BP 131/82 09/04/25 18:49 Pulse Ox 100 09/04/25 18:49 O2 Del Method Room Air 09/04/25 18:49 Common normals: average body habitus, oriented x3, no limitations, healthy appearing, alert and well nourished [facility] Common normals: normocephalic and head/scalp atraumatic Eye Common normals: EOMs intact bilaterally and conjunctivae normal Respiratory Common normals: normal respiratory effort, no retractions, no use of accessory muscles and clear to auscultation bilaterally Cardio Common normals: regular rate, regular rhythm, S1 normal heart sound and S2 normal heart sound GI Common normals: Normal to inspection, nondistended, normoactive bowel sounds present and soft to palpation Other: mild lower abdomen tenderness. No guarding Extremity Common normals: normal to inspection and full ROM Neuro Common normals: oriented x3, CN's II-XII intact bilaterally, moves all extremities and no focal motor deficits Psych Appearance: grossly normal Course Vital Signs Vital signs: Vital Signs Temperature 98.1 F 09/04/25 18:49 Pulse Rate 87 09/04/25 18:49 Respiratory Rate 16 09/04/25 18:49 Blood Pressure 131/82 09/04/25 18:49 Pulse Oximetry 100 09/04/25 18:49 Oxygen Delivery Method Room Air 09/04/25 18:49 Temperature 98.1 F 09/04/25 18:49 Pulse Rate 87 09/04/25 18:49 Respiratory Rate 16 09/04/25 18:49 Blood Pressure 131/82 09/04/25 18:49 Pulse Oximetry 100 09/04/25 18:49 Oxygen Delivery Method Room Air 09/04/25 18:49 MDM - Abdominal Pain MDM Narrative Medical decision making narrative: chronic abdominal pain and past history of kidney stones. Presents complaining of left flank pain concerned she may have a kidney stone. Seen earlier today by Dr Das who was concerned about kidney stones and UTI. States she was prescribed flomax and given antibiotic. Presented here because of increasing flank pain. No fever. Exam without focal findings on palpation of the abdomen. CT abdomen with nephrolithiasis but no ureteral stones or hydronephrosis. No inflammatory findings. UA with trace bacteria and 2-5 WBC patient medicated with fentanyl which provided some relief. She has an appointment with GI in about 2 weeks as part of the workup of her chronic abdominal pain. Recent UGI with small bowel follow thru demonstrated gastritis for which she is on protonix she is to continue protonix and follow up with GI Lab Data Labs: Lab Results 09/04/25 09/04/25 Range/Units 19:50 20:48 WBC 6.6 (4.0-11.0) 10^3/uL RBC 4.40 (4.20-5.40) 10^6/uL Hgb 12.7 (12.0-16.0) g/dL Hct 37.1 (36.0-48.0) % MCV 84.3 (81.0-99.0) fL MCH 28.9 (26.7-34.0) pg MCHC 34.2 (29.9-35.2) g/dL RDW 12.1 (11.0-15.0) % Plt Count 286 (150-450) 10^3/uL MPV 9.2 L (9.5-13.5) fL Neut % (Auto) 55.8 (43.0-75.0) % Lymph % (Auto) 35.5 (20.5-60.0) % Ashley % (Auto) 7.4 (1.7-12.0) % Eos % (Auto) 0.5 L (0.9-7.0) % Baso % (Auto) 0.6 (0.2-2.0) % Neut # (Auto) 3.7 (1.4-6.5) 10^3/uL Lymph # (Auto) 2.4 (1.2-3.8) 10^3/uL Ashley # (Auto) 0.5 (0.3-0.8) 10^3/uL Eos # (Auto) 0.0 (0.0-0.7) 10^3/uL Baso # (Auto) 0.0 (0.0-0.1) 10^3/uL Abs Immat Gran (auto) 0.01 (0.00-0.03) 10^3/uL Imm/Tot Granulo (auto) 0.2 (0.0-0.5) % Sodium 143 (136-145) mmol/L Potassium 3.3 L (3.5-5.1) mmol/L Chloride 108 H (98-107) mmol/L Carbon Dioxide 29.2 (21.0-32.0) mmol/L Anion Gap 9.1 BUN 11.0 (7.0-18.0) mg/dL Creatinine 1.06 H (0.55-1.02) mg/dL Est GFR ( Amer) >60 (>=60 mL/min/1.73m^2) Est GFR (Non-Af Amer) 60 (>=60 mL/min/1.73m^2) BUN/Creatinine Ratio 10.4 Glucose 110 H (74-106) mg/dL Lactate 0.7 (0.4-2.0) mmol/L Calcium 8.9 (8.5-10.1) mg/dL Total Bilirubin 0.4 (0.2-1.0) mg/dL AST 17 (15-37) U/L ALT 36 (14-59) U/L Alkaline Phosphatase 77 (46-116) U/L Total Protein 6.7 (6.4-8.2) g/dL Albumin 3.8 (3.4-5.0) g/dL Globulin 2.9 g/dL Albumin/Globulin Ratio 1.3 Lipase 20.0 (16.0-77.0) U/L Urine Color Yellow (YELLOW) Urine Clarity Clear (CLEAR) Urine pH 6.0 (5.0-9.0) Ur Specific [place] >=1.030 A (1.005-1.025) Urine Protein Negative (NEG/TRACE) mg/dL Urine Glucose (UA) Negative (NEGATIVE) mg/dL Urine Ketones Trace A (NEGATIVE) mg/dL Urine Occult Blood Negative (NEGATIVE) Urine Nitrite Negative (NEGATIVE) Urine Bilirubin Negative (NEGATIVE) Urine Urobilinogen 0.2 (0.2-1.0) EU/dL Ur Leukocyte Esterase Negative (NEGATIVE) Urine RBC None seen (0-2) #/HPF Urine WBC 2-5 A (NONE SEEN) #/HPF Ur Squamous Epith Cells Few A (NONE/RARE) #/LPF Urine Crystals Seen A (None Seen) #/HPF Amorphous Sediment Few Urine Bacteria Small A (NONE SEEN) #/HPF Urine Casts None seen (NONE SEEN) #/LPF Urine Mucus Large A (NONE SEEN) Ur Culture Indicated? Yes-[facility] [place] Discharge Plan Discharge Chief Complaint: Abdominal Pain Clinical Impression: Abdominal pain Patient Disposition: Home, Self-Care Prescriptions / Home Meds: No Action phenazopyridine [Pyridium] 200 mg tablet 200 mg PO Q8H PRN (Reason: pain) Qty: 6 0RF meloxicam 15 mg tablet 15 mg PO DAILY tizanidine 4 mg tablet 8 mg PO DAILY methenamine hippurate 1 gram tablet 1 g PO BID estradiol 0.05 mg/24 hr patch weekly 1 patch transdermal .Weekly ciprofloxacin HCl [Cipro] 500 mg tablet 500 mg PO BID Qty: 10 0RF ketorolac 10 mg tablet 10 mg PO Q8H PRN (Reason: pain) 5 Days Qty: 15 0RF promethazine 25 mg tablet 25 mg PO Q6H PRN (Reason: nausea and vomiting) Qty: 20 0RF ondansetron 4 mg tablet,disintegrating 4 mg PO Q6H PRN (Reason: nausea and vomiting) Qty: 20 0RF dicyclomine 10 mg capsule 10 mg PO QID PRN (Reason: abdominal pain) Qty: 20 0RF Print Language: Albanian Instructions: Abdominal Pain (ED) Referrals: Ignacio Das MD [Primary Care Provider, Family Practice] - 1 week
--- NOTE | 2025-09-04 20:22 | CT_ITS ---
[address] [address] Patient Name: CORI BARRIGA MRN: [id number] date: 1990 Sex: F Assigned Patient Location: ER Current Patient Location: ED.MAIN Accession/Order Number: [id number] Exam Date: 09/04/2025 20:30 Report Date: 09/04/2025 21:36 At the request of: VARGHESE CHUA MD Procedure: CT abdomen pelvis wo con CT Abdomen and Pelvis withoutcontrast TECHNIQUE: Axial imaging with 2-D reconstruction. The CT exam was performed using one or more the following dose reduction techniques: Automated exposure control, adjustment of the MA and/or Kv according to patient size, or use of the iterative reconstruction technique. COMPARISON: 07/08/2025 History: Left flank pain LIMITATIONS: None LOWER THORAX Unremarkable LIVER: Unremarkable GALLBLADDER: Cholecystectomy clips identified. BILE DUCTS: No dilatation SPLEEN: Unremarkable PANCREAS: Unremarkable ADRENAL GLANDS: Unremarkable KIDNEYS:Bilateral nephrolithiasis measuring up to 5 mm. No hydronephrosis. AORTA: No abdominal aortic aneurysm identified. RETROPERITONEUM: No significant retroperitoneal abnormalities identified. MESENTERY:Unremarkable STOMACH:Unremarkable SMALL BOWEL: The small bowel loops are nondistended. APPENDIX: The appendix is normal. COLON: Unremarkable URINARY BLADDER: Urinary bladder is unremarkable. REPRODUCTIVE SYSTEM: The uterus is absent. PNEUMOPERITONEUM: None PERITONEAL FLUID:None BONY STRUCTURES: Unremarkable ABDOMINAL WALL: Unremarkable CT/CT abdomen pelvis wo con IMPRESSION: No obstructive uropathy. Bilateral nephrolithiasis. Impression dictated by: Kyle Good M.D. 09/04/2025 9:36 PM Dictation Location: [facility] Electronically authenticated by: [id number] Y Date: 09/04/2025 21:36
[2025-09-04 20:39] LABS: Cast Seen? NONE SEEN #/LPF (NONE SEEN); Crystals Seen? Seen #/HPF (None Seen); Urine Culture Indicated YES-FRMC
[2025-09-04] MEDS: FENTANYL CITRATE/PF 100 MCG/2 ML VIAL 50 MCG IV (20:40)
[2025-09-04] MEDS: 0.9 % SODIUM CHLORIDE 1,000 ML 999 ML IV (20:40)
--- OUTSIDE RECORDS SUMMARY | 2025-09-04 20:43 | XMS_ITS | CCD ---
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 Name Role Phone Domingo Snyder MD Unavailable [...] Unavailable BERNIE ., DR TOLBERT Attending Unavailable BUNKER HILL, DR GLEN Alford Consulting Unavailable BERNIE ., [...] TOLBERT Consulting Unavailable BALWINDER DUNAWAY Consulting Unavailable AVANICASEY HARMON Consulting Unavailable RAYGOZA ., DR CASTELLANO Admitting [...] Unavailable BERNIE ., DR TOLBERT Consulting Unavailable MD Domingo Snyder Primary Care Provider [phone] MD Arnulfo Aviles Admit Provider MD Arnulfo Aviles Attending Provider Domingo Snyder MD Primary Care Provider [phone] Domingo Snyder MD Attending Provider [phone] ADONIS GUERRA Referring Unavailable DOMINGO SNYDER Primary Care Unavailable Domingo Snyder MD Primary Care Provider [phone] Domingo Snyder MD Primary Care Provider [phone] Domingo Snyder MD Attending Provider Javi Tanner PA-C Attending Provider DOMINGO SNYDER Primary Care Unavailable JAVI TANNER Referring Unavailable SURENDRA SALINAS Consulting Unavailable MASJOSEEH I, MOHAMMAD Admitting Unavailable MASESTRELLA Kearns, MELOAMMAD Attending Unavailable DOMINGO SNYDER M Primary Care Unavailable ADONIS GUERRA Attending Unavailable ADONIS GUERRA Referring Unavailable DOMINGO SNYDER Primary Care Unavailable DOMINGO SNYDER Primary Care Unavailable SIDNEY, HAYLEY Z Referring Unavailable RADHAEDWINA BURGOS S Consulting Unavailable MASJOSEEH I, MOHAMMAD Admitting Unavailable MASESTRELLA Kearns, KATED Attending Unavailable Adonis Guerra Attending Unavailable Adonis Guerra Admitting Unavailable DOMINGO SNYDER Primary Care Unavailable DOMINGO SNYDER Primary Care Unavailable Domingo Snyder MD Primary Care Provider [phone] Vj Fraire DO Attending Provider Domingo Snyder Attending Unavailable Domingo Snyder Admitting Unavailable Domingo Snyder Primary Care Unavailable Javi Tanner Admitting Unavailable Javi Tanner Attending Unavailable Vj Fraire Admitting Unavailable Vj Fraire Attending Unavailable JEFFERSON GIBBS Attending Unavailable PATRICK LEIVA Attending Unavailable PATRICK LEIVA Attending Unavailable PATRICK LEIVA Attending Unavailable Domingo Snyder MD Primary Care Provider [phone] Charanjit Riggs Attending Unavaila ble Medications Current Medications MedicationDrug Class(es)DatesSig (Normalized)Sig (Original)benztropine mesylate 1 mg oral tablet (5 sources)Anticholinergic, AntihistamineStart: 72-02-7226gzmjsldcmfb 1 mg Tab Refills(s) 0 Start Date: 12/24/22 Status: OrderedStart: 08-13-2022 End: 98-90-1796zkrr 1 tablet by mouth twice daily as neededBenztropine 1 mg tablet Discontinued 1 MG PO Twice daily as needed for eps August 13, 2022 12:00am August 16, 2022 11:38ambusPIRone hydrochloride 7.5 mg oral tablet (5 sources)Start: 10-15-8149wxlBHJcfl 7.5 mg oral tablet Refills(s) 0 Start Date: 12/24/22 Status: OrderedStart: 08-13-2022 End: 37-99-1422cqyw 3 tablets by mouth twice dailyBuspirone 10 mg tablet Discontinued 30 MG PO Twice daily August 13, 2022 12:00am August 16, 2022 11:38amStart: 08-13-2022 End: 95-57-1317uzhe 30 mg by mouth twice dailyBuspirone Discontinued 30 MG PO Twice daily August 13, 2022 12:00am August 16, 2022 11:38amcefTRIAXone (ROCEPHIN) 1,000 mg in sterile water 10 mL IV syringe (2 sources)Start: 17-57-1653nwku 100 mg intravenously every twenty-four hours 1,000 mg, IntraVENous, EVERY 24 HOURS, First dose on Julia 01/26/25 at 2044, Administer as slow IV Push over 5 mins Reconstitute 1 g vials with 9.6 mL of designated diluent to produce a 100 mg/mL solution.Start: 01-22-2025 End: 94-11-4343mnitebxmei 10 mg oral tablet (5 sources)Serotonin Reuptake InhibitorStart: 88-85-7388hjqqircmxr 10 mg Tab Refills(s) 0 Start Date: 12/24/22 Status: OrderedStart: 08-13-2022 End: 00-43-6075tiqs 1 tablet by mouth twice dailyCitalopram 20 mg tablet Discontinued 20 MG PO Twice daily August 13, 2022 12:00am August 16, 2022 11:22hz257 hr estradiol 0.41939 mg/hr transdermal system (14 sources)EstrogenStart: 04-05-2025 End: 22-33-1357qciwfpafy (Climara) 0.05 MG/24HR Indications: Night sweats Place 1 patch over 7 days on the skin 1 (one) time per week 12 patch 3 04/05/2025 04/05/2026 Activefluconazole 150 mg oral tablet (2 sources)Azole AntifungalStart: 05-15-2025 End: 43-82-2986jrmd 1 tablet by mouth once, then take 1 tablet by mouth once fluconazole (Diflucan) 150 MG tablet Indications: Yeast infection Take 1 tablet (150 mg) by mouth 1(one) time for 1 dose This is a 1 time dose, take single tablet by mouth. 1 tablet 1 05/15/2025 05/15/2025 Active1 ml HYDROmorphone hydrochloride 1 mg/ml cartridge (1 source)Opioid AgonistStart: 77-58-0273hgto 0.5 mg by mouth every three hours as needed0.5 mg, IntraVENous, EVERY 3 HOURS PRN, Starting on Julia 01/26/25 at 1736, Until Discontinued, Pain Severe (7-10), If oral and IV narcotics ordered, use oral first and only use IV if oral is ineffective or cannot take oral. Do Not give oral and IV within 1 hour of each other unless specifically ordered. hydrOXYzine pamoate 50 mg oral capsule (5 sources)AntihistamineStart: 27-34-4595jqmeYYPvjgz pamoate 50 mg Cap Refills(s) 0 Start Date: 12/24/22 Status: OrderedStart: 08-13-2022 End: 88-78-5581xzys 1 capsule by mouth three times daily as needed for anxiety Hydroxyzine Pamoate 50 mg capsule Discontinued 50 MG PO Three times daily as needed for Anxiety August 13, 2022 12:00am August 16, 2022 11:38am ibuprofen 600 mg oral tablet (20 sources)Nonsteroidal Anti-inflammatory DrugStart: 01-29-2025 End: 93-81-7968eypr 1 tablet by mouth three times daily as needed for pain ibuprofen (ADVIL;MOTRIN) 600 MG tablet Take 1 tablet by mouth 3 times daily as needed for Pain 21 tablet 01/29/2025 02/05/2025 ActiveStart: 01-22-2025 End: 48-31-3131vfvo 1 dose by mouth zhmf112 mg, Oral, ONCE, 1 dose, On 01/22/25 at 0015Start: 89-78-4824gloz 1 tablet by mouth every eight hoursibuprofen 800 MG tablet Take 800 mg by mouth every 8 (eight) hours 05/07/2023 Active1 ml ketorolac tromethamine 30 mg/ml cartridge (1 source)Nonsteroidal Anti-inflammatory Drug, Cyclooxygenase InhibitorStart: 01-26-2025 End: mg, IntraVENous, EVERY 6 HOURS PRN, Starting on Julia 01/26/25 at 2128, Until 01/31/25 at 2127, Pain Moderate (4-6), allowed for higher pain score per patient request, Pain Severe (7-10), Do not administer for more than 5 days.50 ml magnesium sulfate 40 mg/ml injection (1 source)Start: 12-32-5997ohkvzhwj (PF) injection 2 mg (1 source)Start: 59-62-9683gxrdaapl (PF) injection 2 mgnabumetone 750 mg oral tablet (19 sources)Nonsteroidal Anti-inflammatory DrugStart: 11-69-7539jpopodqbxk (Relafen) 750 MG tablet Take 750 mg by mouth as needed in the morning and 750 mg as needed in the evening. 07/17/2023 ActiveNo Name (No Known Home Meds) (4 sources)Start: 84-43-0945Vl Name (No Known Home Meds) Active April 07, 2024 11:00pmStart: 38-15-7064Wx Name (No Known Home Meds) Active April 08, 2024 12:00amOLANZapine 15 mg oral tablet (5 sources)Atypical AntipsychoticStart: 36-22-5825dzzsxoemwg 15 mg oral tablet Refills(s) 0 Start Date: 12/24/22 Status: OrderedStart: 08-13-2022 End: 15-33-1277zfku 1 tablet by mouth at bedtimeOlanzapine 15 mg tablet Discontinued 15 MG PO Bedtime August 13, 2022 12:00am August 16, 2022 11:38amolanzapine 15 MG / samidorphan 10 MG Oral Tablet [Lybalvi] (2 sources)Start: 08-07-0723Mvkcsxl 15 mg-10 mg oral tablet Refill(s) 0 Start Date: 03/20/23 Status: Orderedondansetron (ZOFRAN-ODT) disintegrating tablet 4 mg (2 sources)Start: 49-88-1116jtpnfftkgcl (ZOFRAN-ODT) disintegrating tablet 4 mg Start: 39-47-8144ejtdnynpfkp (ZOFRAN-ODT) disintegrating tablet 4 mgoxyCODONE hydrochloride 5 mg oral tablet (4 sources)Opioid AgonistStart: 01-22-2025 End: 31-71-8990ifyz 1 tablet by mouth every six hours as needed for pain oxyCODONE (ROXICODONE) 5 MG immediate release tablet Indications: Acute postoperative pain Take 1 tablet by mouth every 6 hours as needed for Pain for up to 5 days. Intended supply: 5 days. Take lowest dose possible to manage pain Max Daily Amount: 20 mg 8 tablet 01/29/2025 02/03/2025 ActiveStart: 01-21-2025 oxyCODONE (ROXICODONE) immediate release tablet 2.5 mgpolyethylene glycol 3350 32594 mg powder for oral solution (2 sources)Osmotic LaxativeStart: 47-39-8172Mhope: 38-57-1528peaksuinu bicarbonate 25 meq effervescent oral tablet (19 sources)Start: 37-83-5531Pvbws-K 25 MEQ effervescent tablet 06/23/2023 ActivePotassium Chloride (1 source)Start: 53-61-1040sxjglajmn chloride (KLOR-CON M) extended release tablet 40 mEqQUEtiapine 100 mg oral tablet (5 sources)Atypical AntipsychoticStart: 47-94-9825ptygnsirmg 100 mg Tab Refills(s) 0 Start Date: 12/24/22 Status: OrderedStart: 08-13-2022 End: 03-69-5988Cuifjhfmwd 100 mg tablet Discontinued 150 MG PO Bedtime August 13, 2022 12:00am August 16, 2022 11:38amStart: 08-13-2022 End: 66-60-1116ibaf 150 mg by mouth at bedtimeQuetiapine Discontinued 150 MG PO Bedtime August 13, 2022 12:00am August 16, 2022 11:38amsulfamethoxazole 800 mg / trimethoprim 160 mg oral tablet (2 sources)Dihydrofolate Reductase Inhibitor Antibacterial, Sulfonamide AntimicrobialStart: 01-22-2025 End: 53-28-1149qotv 1 tablet by mouth twice dailysulfamethoxazole-trimethoprim (BACTRIM DS;SEPTRA DS) 800-160 MG per tablet Take 1 tablet by mouth 2times daily for 10 days 20 tablet 01/22/2025 02/01/2025 Active Completed/Discontinued Medications MedicationDrug Class(es)DatesSig (Normalized)Sig (Original)acetaminophen 325 mg oral tablet (2 sources)Start: 16-69-6277940 mg, Oral, EVERY 6 HOURS PRN, Starting on Thu01/26/25 at 2128, Until Discontinued, Pain Mild (1-3), allowed for higher pain score per patient request, Maximum dose of acetaminophen is 4000 mg fromall sources in 24 hours.Start: 11-94-5935gcdvtnhxljtmj (TYLENOL) tablet 650 mg acetaminophen 325 mg / oxyCODONE hydrochloride 5 mg oral tablet (1 source)Opioid AgonistStart: tablet, Oral, EVERY 4 HOURS PRN, Starting on Thu01/26/25 at 1736, Until Discontinued, Pain Mild (1-3), allowed for higher pain score per patient request, Pain Moderate (4-6), allowed for higher pain score per patient request, Maximum dose of acetaminophen is 4000 mg from all sources in 24 hours.Diatrizoate (1 source)Start: 01-17-2025 End: mL, Urethral, IMG ONCE PRN, 1 dose, Starting on Thu01/17/25 at 0900, Until Thu01/17/25 at 0900, Other0.4 ml enoxaparin sodium 100 mg/ml prefilled syringe (2 sources)Low Molecular Weight HeparinStart: 36-06-3860imhxde 40 mg by subcutaneous injection once daily40 mg, SubCUTAneous, DAILY, First dose (after last modification) on Thu01/27/25 at 0900, Until Discontinued, Indication of Use: Prophylaxis-DVT/PEStart: ml fentaNYL 0.05 mg/ml injection (1 source)Opioid AgonistStart: 01-27-2025 End: mcg, IntraVENous, EVERY 5 MIN PRN, 2 doses, Starting on Thu01/27/25 at 1658, Until Thu01/27/25 at 1707, Pain Severe (7-10), For Phase I. If Phase II oral narcotics have been administered in the last 60 minutes, do not administer IV narcotics unless specifically approved by provider., PACU only hyoscyamine sulfate 0.125 mg sublingual tablet (3 sources)Start: 10-31-8871ymde 0.125 mg by mouth every six hours as needed 0.125 mg, Oral, EVERY 6 HOURS PRN, Starting on Thu01/26/25 at 1726, Until Discontinued, Cramping, bladder spasms, stent painStart: 40-89-6561sowj 1 tablet by mouth every six hours as needed for painhyoscyamine (LEVSIN) 0.125 MG tablet Take 1 tablet by mouth every 6 hours as needed for Cramping (bladder spasms, stent pain) 20 tablet 1 01/22/2025 ActiveK-vescent 25 mEq oral tablet, effervescent (1 source)Start: 28-33-9103hbpq 1 tablet by mouth twice dailyK-vescent 25 mEq oral tablet, effervescent 25 mEq = 1 tab(s), Oral, BID, # 30 tab(s), Refills(s) 3,Pharmacy: [facility]/pharmacy #[id number], 168, cm, 03/20/23 10:32:00 EDT, Height/Length Dosing, 95, kg, 03/20/23 10:32:00 EDT, Weight Dosing Start Date: 06/23/23 Status: Orderedprochlorperazine 5 mg/ml injectable solution (2 sources)PhenothiazineStart: 32-74-909686 mg, IntraVENous, EVERY 6 HOURS PRN, Starting on Thu01/27/25 at 1317, Until Discontinued, Nausea,second line after Zofran, If administering IV push, administer at a maximum rate of 5 mg/minute. Patients should remain lying down following administration and be reassessed for relief of nausea and presence of hypotension. Patients should be assisted the first time they get up after administration.Start: 92-01-871359 mg, IntraVENous, EVERY 6 HOURS PRN, Starting on Thu01/22/25 at 0756, Until Discontinued, Nausea, If administering IV push, administer at a maximum rate of 5 mg/minute. Patients should remain lying down following administration and be reassessed for relief of nausea and presence of hypotension. Patients should be assisted the first time they get up after administration.5 ml sodium chloride 9 mg/ml injection (5 sources)Start: -40 mL, IntraVENous, EVERY 12 HOURS SCHEDULED (2 times per day), First dose on Thu01/26/25 at 2100, Until Discontinued, For Line Patency: Peripheral IV = 5 mL; Midline or Central Line = 10 mL/lumen.If following IV push medication, administer flush at same rate as the IV push. Flush volume is determined by type of infusion therapy being given. For non- viscous solutions use: Peripheral IV = 5 mL Midline or Central Line = 10 mL/lumen For viscous solutions (i.e. blood components, parenteral nutrition, contrast media, or after obtaining blood sample) use: Peripheral IV = 10 mL Midline or CentralLine = 20 mL/lumenStart: 58-95-3190Kfgrv: 01-26-2025 End: 44-86-8677OmnqdJVSrzn, at 75 mL/hr, CONTINUOUS, Starting on Julia 01/26/25 at 1745, For 12 hoursStart: 01-22-2025 End: 83-27-7756YwerxDHCduk, at 150 mL/hr, CONTINUOUS, Starting on Thu01/22/25 at 0015tamsulosin hydrochloride 0.4 mg oral capsule (4 sources)alpha-Adrenergic BlockerStart: 96-97-8955vjeq 0.4 mg by mouth once daily at mealtime0.4 mg, Oral, DAILY, First dose on Thu01/27/25 at 0900, Until Discontinued, Do not crush or break. Give 30 minutes after a full meal to limit risk of orthostatic hypotension/falls. Problems Active Problems Problem ClassificationProblemDateDocumented DateEpisodic/ChronicAbdominal hernia (1 source)Umbilical hernia without obstruction or gangrene; Translations: [UMBILICAL HERNIA W/O OBST/GANGRENE]Onset: 85-01-4793KvbhoymfCqyfpybnyc disorders (2 sources)Reaction to severe stress, unspecified; Translations: [Reaction to severe stress. unspecified]Onset: 51-05-0457ChhhepiStaykxg disorders (20 sources)Generalized anxiety disorder; Translations: [Anxiety]Onset: 22-47-6534KnpyaowZyeliggeqjfki symptoms and ill-defined conditions (20 sources)Urge incontinence of urine; Translations: [Presence of urogenital implants]Onset: 337005-99-2127MpimooyVdmsqgjhbvbe; infection of eye (except that caused by tuberculosis or sexually transmitteddisease) (2 sources)Hordeolum externum of upper eyelid of right eye; Translations: [Hordeolum externum right upper eyelid]22-67-3937LewdnnvbNjflnoxnb disorders (20 sources)Excessive and frequent menstruation with regular cycle; Translations: [Menorrhagia]Onset: 62-81-6145RmceofnMqif disorders (20 sources)Major depressive disorder, single episode, unspecified; Translations: [Major depressive disorder, recurrent, unspecified]Onset: 846507-27-9820AjndbwhMmhjkg and vomiting (4 sources)Nausea with vomiting, unspecified; Translations: [NAUSEA WITH VOMITING UNSPECIFIED]Onset: 66-22-5876FlxcfmsaAvcfczfve of unspecified nature or uncertain behavior (4 sources)Neoplastic disease; Translations: [Neoplasm of unspecified behavior of bone, soft tissue, and skin]75-99-9669CsnpjoloFtaur aftercare (1 source)Other snf (current) drug therapy; Translations: [OTH CORRECTIONAL CORPORAL CURRENT DRUG THERAPY]Onset: 52-28-1183PwurdqyrNezhi aftercare (1 source)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; Translations: [[facility] USE ORAL HYPOGLYCEMIC DX]Onset: 80-54-3946TepwsjvoScini aftercare (4 sources)Removal of sutures done; Translations: [Encounter for removal of sutures]05-61-0233VxttwjnhGaqtd diseases of kidney and ureters (3 sources)Cyst of gqugbp06-73-1226DounhcvmSovrt diseases of kidney and ureters (2 sources)Vesicoureteral-reflux, unspecified; Translations: [Vesicoureteral- reflux, unspecified]Onset: 20-19-7780FyurksvcIxmrs diseases of kidney and ureters (2 sources)Vesicoureteric reflux; Translations: [Vesicoureteral-reflux, unspecified]93-94-5551KqqcovxiPimhx diseases of kidney and ureters (2 sources)Hydronephrosis with renal and ureteral calculous obstruction; Translations: [Hydronephrosis]Onset: 906829-72-4379KgitpsdpXiifz diseases of kidney and ureters (1 source)Hydronephrosis; Translations: [Unspecified hydronephrosis]Onset: 345008-30-3336GtvbdoxhFlvrm nervous system disorders (19 sources)Entrapment of left ulnar nerve; Translations: [Lesion of ulnar nerve, left upper limb]Onset: 037571-70-9000QakeoyeUqiem nervous system disorders (19 sources)Lesion of ulnar nerve; Translations: [Lesion of ulnar nerve, unspecified upper limb]Onset: 631510-70-2930QnjwqxgGjsba nervous system disorders (5 sources)Acute postoperative pain; Translations: [Other acute postprocedural pain]Onset: 738163-08-6588MhckjrlmHuelr nervous system disorders (1 source)Other acute postprocedural pain; Translations: [Other acute postprocedural pain]Onset: 33-96-8488MojuiqbmHzvqg nutritional; endocrine; and metabolic disorders (3 sources)Body mass index 30+ - ebgbviz12-02-4172ItaxyooTmfyw nutritional; endocrine; and metabolic disorders (1 source)Morbid (severe) obesity due to excess calories; Translations: [MORBID SEVERE OBES D/T EXCESS ROSS]Onset: 11-87-1643TqrigbyZumpn nutritional; endocrine; and metabolic disorders (1 source)Body mass index (BMI) 34.0-34.9, adult; Translations: [BODY MASS INDEX BMI 34.0-34.9 ADULT]Onset: 84-33-7119MkqkdwuRyhwy nutritional; endocrine; and metabolic disorders (1 source)Body mass index (BMI) 39.0-39.9, adult; Translations: [BODY MASS INDEX BMI 39.0-39.9 ADULT]Onset: 52-99-9288YaadkaaLwldx nutritional; endocrine; and metabolic disorders (1 source)Body mass index (BMI) 40.0-44.9, adult; Translations: [BODY MASS INDEX BMI 40.0-44.9 ADULT]Onset: 96-58-0165VjxqyxwRaysd nutritional; endocrine; and metabolic disorders (19 sources)Body mass index 40+ - severely obese; Translations: [Body mass index (BMI) 40.0-44.9, adult]Onset: 858926-14-7155BakwwwcPakba screening for suspected conditions (not mental disorders or infectious disease) (5 sources)Encounter for screening for malignant neoplasm of cervix; Translations: [Other specified abnormal findings of blood chemistry]Onset: 78-81-3925WwzarzipJejbd skin disorders (2 sources)Night sweats; Translations: [Generalized hyperhidrosis]04-05-2025 EpisodicResidual codes; unclassified (1 source)Acquired absence of other specified parts of digestive tract; Translations: [ACQ ABSENCE OTH PART DIGESTV TRACT]Onset: 72-22-4641Bevydqpf Suicide and intentional self-inflicted injury (8 sources)Suicidal ideations; Translations: [Suicidal thoughts]Onset: 89-48-0924ZqkdjnfcSwabwapemqwl (1 source)NO SHOWUnclassified (3 sources)Finding of sensation of yikynwy23-56-0865Ozueuoyzqkty (1 source)CONTACT W/AND (SUSP) EXPOS COVID-19; Translations: [CONTACT W/AND (SUSP) EXPOS COVID-19]Onset: 11-04-2022 Past or Other Problems Problem ClassificationProblemDateDocumented DateEpisodic/ChronicAbdominal pain (20 sources)Flank pain; Translations: [Unspecified abdominal pain]Onset: 665583-75-0439TpncfygfIkkeqdenr and vision defects (19 sources)Astigmatism; Translations: [Unspecified astigmatism, unspecified eye]Onset: 154028-25-6650UljorlleRujftzjp of urinary tract (20 sources)Kidney stone; Translations: [Personal history of urinary calculi] Onset: 228781-36-5728LkvqatxuKaigeg of cervix (2 sources)Low grade squamous intraepithelial lesion on cytologic smear of cervix (LGSIL); Translations: [Highgrade squamous intraepithelial lesion on cytologic smear of cervix (HGSIL)]Onset: 05-89-4418CxaqyfznZpicjyhwxqhbx and procreative management (19 sources)Intrauterine contraceptive device in situ; Translations: [Presence of (intrauterine) contraceptive device]Onset: 929120-75-6873Mjgqhpzq Deficiency and other anemia (1 source)Iron deficiency anemia, unspecified; Translations: [IRON DEFICIENCY ANEMIA UNSPECIFIED]Onset: 34-33-1386EotmlomhUwnboirt or abnormal glucose tolerance complicating ; childbirth; or the puerperium (19 sources)History of gestational diabetes mellitus; Translations: [Personal history of gestational diabetes]Onset: 69-59-803261257055-50-2103NylekveoWrysb or threatened labor (19 sources)Term delivered; Translations: [Term delivery with labor, third trimester, not applicable or unspecified]Onset: 08-06-2018 41-76-1612LsnddzszTuzgf and electrolyte disorders (2 sources)Dehydration; Translations: [Hypo-osmolality and hyponatremia]Onset: 39-51-0929UcykcjkuWldgkwunzyiif symptoms and ill-defined conditions (20 sources)Dysuria; Translations: [Increased frequency of urination]Onset: 246522-48-6939VoowxzzqVwoakxgeyqieq and screening for infectious disease (1 source)Encounter for screening for human papillomavirus (HPV); Translations: [ENC SCREENING HUMAN PAPILLOMAVIRUS]Onset: 51-96-0167JdchscixNcfkjhqwnbih breast conditions (19 sources)Lump in left breast; Translations: [Unspecified lump in the left breast, unspecified quadrant]Onset: 473081-80-7567SzzwegthZzdvg aftercare (19 sources)Patient encounter status; Translations: [Encounter for follow-up examination after completed treatment for conditions other than malignant neoplasm]Onset: 659342-16-3602MftzhwmaXkque complications of (19 sources)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, non-Rh blood-group incompatibility affecting ; Translations:[Maternal care for other isoimmunization, unspecified trimester, not applicable or unspecified]Onset: EpisodicOther connective tissue disease (19 sources)Muscle pain; Translations: [Myalgia, unspecified site]Onset: 376393-61-5231VzkrwdidJaalw diseases of bladder and urethra (20 sources)Urethral stricture; Translations: [Unspecified urethral stricture, female]Onset: 329307-07-5110RtujrhokQvwhv diseases of kidney and ureters (19 sources)Stricture of ureter; Translations: [Crossing vessel and stricture of ureter without hydronephrosis]Onset: 393822-68-1286ZrzbhskaFoxlk female genital disorders (19 sources)Retroflexed uterus; Translations: [Malposition of uterus]Onset: 851771-01-8488UwtuhqyxJwfjk infections; including parasitic (19 sources)History of chlamydial infection; Translations: [Personal history of other infectious and parasitic diseases]Onset: 530518-77-9867OgixnxjwPxqzb nutritional; endocrine; and metabolic disorders (19 sources)Abnormal weight gain; Translations: [Abnormal weight gain]Onset: 257141-54-1948WeyuhowvLtprz nutritional; endocrine; and metabolic disorders (19 sources)Overweight; Translations: [Overweight]Onset: EpisodicOther and delivery including normal (19 sources)Intrauterine ; Translations: [Encounter for supervision of normal , unspecified, unspecified trimester]Onset: EpisodicOther skin disorders (19 sources)Mass of scalp; Translations: [Localized swelling, mass and lump, head]Onset: 707124-34-6894NekdironEbmgk upper respiratory infections (19 sources)Streptococcal sore throat; Translations: [Streptococcal pharyngitis] Onset: 384347-92-2177PzaqtrykSujprtd cyst (1 source)Other ovarian cyst, right side; Translations: [OTHER OVARIAN CYST RIGHT SIDE]Onset: 62-23-1243TxludllqHuposxpdu; thrombophlebitis and thromboembolism (19 sources)Superficial thrombophlebitis; Translations: [Phlebitis and thrombophlebitis of unspecified site]Onset: 643747-00-7008Xgijtqls Septicemia (except in labor) (1 source)Sepsis due to streptococcus, group B; Translations: [SEPSIS DUE TO STREPTOCOCCUS GROUP B]Onset: 96-52-0769ApswfiyzGnzhrab and strains (20 sources)Sprain of calcaneofibular ligament of left ankle, initial encounter; Translations: [Sprain of calcaneofibular ligament]Onset: 90-87-8079Mhvfylsz Urinary tract infections (20 sources)Pyelonephritis; Translations: [Urinary tract infectious disease] Onset: 678626-55-4477Apsqunxo Results Test NameValueInterpretationReference RangeFacilityNo Panel Informationon 16-04-8955Xnoxwc length (cm): 0.7 Lesion width (cm): 0.7 [...] used: 6.0 ml Estimated blood loss: 1.0 mlNOMS HealthcareComplexity: Intermediate Final length (cm): 4.2 Reason for [...] uncontrollable bleeding, or complications. Dressing type: pressure dressingPhelps HealthNo Panel InformationOrdered By: Falguni Morris on [id number] HealthUrine Cultureon 05-05-2025 Bacteria identified Cx Nom (U)ORGANISM: Citrobacter freundii complex (O:CITFRC) [place] Count 75,000 Aerobic ANASTASIA Charge (NMIC56) SUSCEPTIBILITY ORGANISM: O:CITFRC ANTIBIOTIC INTERPRETATION ANASTASIA Amikacin S <16 Aztreonam I <4 Cefepime S <2 Ceftazidime I <1 Ceftazidime/Avibactam S <4 Ceftriaxone I <1 Ciprofloxacin S <0.25 Ertapenem S <0.5 Gentamicin S <2 Levofloxacin S <0.5 Meropenem S <1 Nitrofurantoin S <32 Piperacillin/Tazobactam I <8 Tetracycline S <4 Tigecycline S <2 Tobramycin S <2 Trimethoprim/Sulfamethoxazole R >2 S = SUSCEPTIBLE I = [...] RESISTANT TO ALL B-LACTAM DRUGS. PERFORMED BY: [place] [address] PATHOLOGIST COMPOSITE SCIENCE TEACHER CALLUM ALVA M.D.[facility] Physician GroupComment on above: Performed By: #### CUU #### [place] [address] USAIGP,APTIMA HPV,AGE GDLNon 58-12-7001QFK GDLN ACOG TESTING Note.[facility] HealthcareComment on above:TESTS RESULT FLAG UNITS REF RANGE LAB Clinician Provided Cytology Information Source.............Vagina No. of containers..01 ThinPrep Vial Age Brent JIMENEZ Radha... 3065 FLAG LEGEND: L-Low Normal,H-High Normal,LL-Alert Low,HH-Alert High <-Panic Low,>-Panic High,A-Abnormal,AA-Critical Abnormal Performed at: 01 =G [address] [place] [address] Shereen Caal MD, HPV APTIMANegativeNegativeNOMS HealthcareComment on above:This nucleic acid amplification test detects fourteen high- risk HPV types (16,18,31,33,35,39,45,51,52,56,58,59,66,68) without differentiation. Performed at: = - [address] [id number] Behavioral Health Therapist: Shereen Caal MD, Phone: [phone] Performed at: - [address] [id number] Behavioral Health Therapist: Shereen Caal MD, Phone: [phone] IGP, APTIMA HPV, RFX 16/18,45NoteAbnormal.NOMS HealthcareComment on above:TESTS RESULT FLAG UNITS REF RANGE LAB DIAGNOSIS: [A] 02 EPITHELIAL CELL ABNORMALITY. ATYPICAL SQUAMOUS CELLS OF UNDETERMINED SIGNIFICANCE (ASC-US). Recommendation: [A] 02 Suggest follow up as clinically appropriate. Specimen adequacy: 02 Satisfactory for evaluation. Performed by: 02 Tamiko Barrow, Smoking Tobacco Cutter Operator ([facility]) Electronically si... Capri Boston MD, Pathologist [...] <-Panic Low,>-Panic High,A-Abnormal,AA-Critical Abnormal Performed at: [address] [address] Shereen Caal MD, Interpretation and review of laboratory resultsAbnoHospital of the University of Pennsylvania SPATULA-ALONE VAGINA [facility] CenterNo Panel Informationon [id number] of biopsy: punch Informed consent: discussed and [...] Specimen sent for H&E Number of sutures: [address] [place], [place] [address]Type of biopsy: tangential Informed consent: discussed and [...] Photo taken Amount of lidocaine used: 1.0 [facility] CareOutside Recordson 41-95-3886Qtaesty [id number]#1.00[facility]ana HospitalCoding Summaryon 98-74-6227Drxdrs SummaryHTMLBase 64 ZloefjngENz6eCr+PGhlYWQ+TU6MTHTfI21fkXQeaZ8oR5XVBNfCUjayAZRVVHbSHiRjolZlSA2vrKDy ZXJu [file] c2U (more content not included)...St[facility]'s Medical CenterProvider Orderson 09-19-1581Kjeosfxv [id number]#1.00OTCleveland Clinic [facility] Urineon 03-18-2025 Urine>100,000 cfu/ml Escherichia coli ORGANISM EC SUSCEPTIBILITY ORGANISM ID: 1 ANTIBIOTIC INTERPRETATION ANASTASIA STATUS [...] Tobra S <=2 Verified Tri/Sulf S <=2/38 VerifiedSt. Mary's Medical CenterComment on above:Performed By: #### [id number] #### [facility] [address] [place], [place] [address]Uohlshmp Orderson 22-71-5494Vxnhgmer Orders [id number]#1.00[facility] Cult,Bloodon 43-62-9696Oovq,BloodSpecimen Description .BLOOD Special Requests Culture NO GROWTH 5 DAYS Report Status FINAL 02/01/2025The Surgical Hospital at SouthwoodsComment on above:Performed By: #### BC #### [employer] [address] [place] [phone] Behavioral Health Therapist: NABOR Prettyult,BloodSpecimen Description .BLOOD Special Requests RIGHT HAND 1ML Culture NO GROWTH 5 DAYS Report Status FINAL 02/01/2025NoBarberton Citizens HospitalComment on above:Performed By: #### BC #### [facility] [place] [address] Behavioral Health Therapist: Alejandro Salazar [facility] OKLAHOMA CITYoding Summaryon 87-66-0087Zxxudg Summary HTMLBase 64 GdonmoxoFLk7xVx+PGhlYWQ+YA4KLYYqH52csYNqqO2iU2KEYScNBuxnTSKSJTuNFbRcqbWvUB5ceGNe ZXJu [file] LWN (more content not included)...[facility] Urineon 01-28-2025 UrineUrine Culture ordered as a result of parameters set on specific urine dip and urine microsopic results. Mixed skin, or urogenital daiana. Clinically insignificantSt. Mary's Medical Center Comment on above:Performed By: #### [id number], [id number], [id number], [id number], [id number] #### [facility] (DEFAULT) [address] [place], [place] [address]Ktay,Urineon 80-45-7081Zqgi,UrineSpecimen Description .BLADDER URINE FROM CYSTOSCOPY Special Requests Site: Urine Culture NO GROWTH Report Status FINAL 01/28/2025The [facility] Hospital at SouthwoodsComment on above:Performed By: #### BMP #### [employer] [address] [place] [address] Behavioral Health Therapist: NABOR Prettytrihealth [facility], Urineon 08-39-0444Hlfnfgtezisov identified Cx Nom (Unsp spec)NO GROWTHBon [facility] And Medical CenterFastPay [facility] HospitalService comment (Unsp spec) [Interp]Site: UrineBon [facility] Medical CenterFastPay [facility] HospitalSpecimen Description .BLADDER URINE FROM CYSTOSCOPYBon SecSamaritan Hospital Misfit Wearables [facility] Basic Metabolic Profon 88-85-2314Siwnq gap [Moles/Vol]9 mmol/LNormal9-16Memorial Health SystemComment on above:Performed By: #### BMP #### [address] [address] Behavioral Health Therapist: NABOR Prettyalcium [Mass/Vol]8.3 mg/dLLow8.6-10.4Memorial Health SystemComment on above:Performed By: #### BMP #### [address] [address] Behavioral Health Therapist: NABOR Prettyhloride [Moles/Vol]108 mmol/OSlah08-670RprsxMemorial Health SystemComment on above:Performed By: #### BMP #### [facility] SystemRed[facility] [address] [place] [address] Behavioral Health Therapist: Alejandro Salazar MDCO2 [Moles/Vol]22 mmol/OFumzlt09-00HcxorMemorial Health SystemComment on above:Performed By: #### BMP #### [address] [address] Behavioral Health Therapist: NABOR Prettyreatinine [Mass/Vol]0.7 mg/dLNormal0.6-0.9Memorial Health SystemComment on above:Performed By: #### BMP #### [address] [address] Behavioral Health Therapist: Alejandro Salazar MDGFR/1.73 sq M.predicted among non-blacks MDRD (S/P/Bld) [Vol rate/Area]mL/min/{1.73_m2}Normal>60Memorial Health SystemComment on above:Result Comment: These results are not intended for [...] or following therapy that affects renal tubular secretion.Performed By: #### BMP #### [facility] [address] [place] [address] Behavioral Health Therapist: Alejandro Salazar MDGlucose [Mass/Vol]85 mg/eXVeyxfd79-78TcnytUCLA Medical Center, Santa MonicaComment on above:Performed By: #### BMP #### [address] [address] Behavioral Health Therapist: IBIS Prettyotassium [Moles/Vol]3.9 mmol/LNormal3.7-5.3 [facility] Health SystemComment on above:Performed By: #### BMP #### [facility] [employer] [address] [place] [address] Behavioral Health Therapist: LELE Prettyodium [Moles/Vol]139 mmol/TUmfkbb568-943SqfcgMemorial Health SystemComment on above:Performed By: #### BMP #### [facility] [employer] [address] [place] [address] Behavioral Health Therapist: Alejandro Salazar MDUrea nitrogen [Mass/Vol]11 mg/dLNormal6-20Memorial Health SystemComment on above:Performed By: #### BMP #### [address] [address] Behavioral Health Therapist: Alejandro Saalzar MDBasi metabolic panelon 06-89-5465Phshh gap [Moles/Vol]9 mmol/L9 - 16 mmol/LBon SecOur Lady of the Sea Hospital HealthCalcium [Mass/Vol]8.3 mg/dLLow8.6 - 10.4 mg/dLBon Secours [facility] HealthChloride [Moles/Vol]108 mmol/L High98 - 107 mmol/LBon Secours Mercy HealthCO2 [Moles/Vol]22 mmol/L20 - 31 mmol/LBon [facility]ours [facility] HealthCreatinine [Mass/Vol]0.7 mg/dL0.6 - 0.9 mg/dLBon Secours University Hospitals Health Systemy HealthEst, Glom Filt Rate- PINFBon SecWooster Community HospitalComment on above: These results are not intended [...] therapy that affects renal tubular secretion. Glucose [Mass/Vol]85 mg/dL74 - 99 mg/dLBon SecA8 Digital Musicy Qury[employer], Inc.Interpretation and review of laboratory resultsAbnormalBon Secours Mercy HealthPotassium [Moles/Vol]3.9 mmol/L3.7 - 5.3 mmol/LBon Secours Mercy HealthSodium [Moles/Vol] 139 mmol/L136 - 145 mmol/LBon Secours Mercy HealthUrea nitrogen [Mass/Vol]11 mg/dL6 - 20 mg/dLBon Secours Mercy Quryon, Inc.[facility] Health SystemFedora PharmaceuticalsCBC auto differentialon 74-73-7827Tujjkxrzv (Bld) [#/Vol]0.04 10*3/uLBon Secours Mercy Qury[employer], Inc.Basophils/100 WBC (Bld)1 %0 - 2 %[facility] HealthEosinophils (Bld) [#/Vol]0.14 10*3/uLBon Secours Mercy HealthEosinophils/100 WBC (Bld)4 %1 - 4 % [facility] [employer].Erythrocyte distribution width (RBC) [Ratio]12.6 %11.8 - 14.4 %[facility] [employer].Hematocrit (Bld) [Volume fraction]34.2 %Low36.3 - 47.1 %[facility] [employer]y [employer].Hemoglobin (Bld) [Mass/Vol]10.7 g/dLLow11.9 - 15.1 g/dLBon Secours Mercy [employer]ury[employer], [employer].Immature granulocytes (Bld) [#/Vol][facility] [employer].Immature granulocytes/100 WBC (Bld)0 %0Bon SecFastPay Health Interpretation and review of laboratory resultsAbnormalBon Secours [employer], [employer].y Health Lymphocytes/100 WBC (Bld)55 %High24 - 43 %[facility] [employer].y Health Lymphocytes/100 WBC (Bld)2.11 %[facility] [employer].y [employer].MCH (RBC) [Entitic mass] 27.1 pg25.2 - 33.5 pgBon [facility] HospitalHC (RBC) [Mass/Vol]31.3 g/dL28.4 - 34.8 g/dLBon [facility] HospitalV (RBC) [Entitic vol]86.6 fL82.6 - 102.9 fL [facility] Careplex HospitalMonocytes/100 WBC (Bld)9 %3 - 12 %Bon [facility] Medical CenterMonocytes/100 WBC (Bld)0.35 %Bon [facility] Medical CenterNeutrophils/100 WBC (Bld)31 %Low36 - 65 %Bon [facility] Medical CenterNucleated RBC/100 WBC (Bld) [Ratio] 0 %0.0 per 100 WBCSentara Careplex HospitalPlatelet mean volume (Bld) [Entitic vol]9.1 fL8.1 - 13.5 fLPioneer Community Hospital Of Patrick HealthPlatelets (Bld) [#/Vol]238 10*3/uLBon Wexner Medical CenterRBC (Bld) [#/Vol]3.95 10*6/uL3.95 - 5.11 m/uLSentara Careplex HospitalSegmented neutrophils/100 WBC (Bld)1.21 %LowBon [facility]ner Medical CenterWBC other (Bld) [#/Vol]3.9Bon [facility] Memorial HospitalCBC with Diffon 72-06-7727Bph. Basophil0.04 k/uLNormal0.00-0.20Memorial Health SystemComment on above:Performed By: #### BMP #### [employer] [address] [place] [address] Behavioral Health Therapist: J Carlos Pretty.Imm.Granulocyte<0.77Nwwnob2.00-0.30Memorial Health SystemComment on above:Performed By: #### BMP #### [employer] [address] [place], [place] [address] Behavioral Health Therapist: J Carlos Pretty.Neutrophil (Seg)1.21 k/uLLow1.50-8.10Memorial Health SystemComment on above:Performed By: #### BMP #### [address] [address] Behavioral Health Therapist: Alejandro Salazar MDBasophils/100 WBC (Bld)1 %Normal0-2MUCLA Medical Center, Santa MonicaComment on above:Performed By: #### BMP #### [place] [address] Behavioral Health Therapist: Alejandro Salazar MDEosinophils (Bld) [#/Vol]0.14 10*3/uLNormal 0.00-0.44Memorial Health SystemComment on above:Performed By: #### BMP #### [address] [address] Behavioral Health Therapist: EDUARDO Prtetyosinophils/100 WBC (Bld)4 %Normal1-4Memorial Health SystemComment on above:Performed By: #### BMP #### [address] [address] Behavioral Health Therapist: Alejandro Salazar MDErythrocyte distribution width (RBC) [Ratio]12.6 %Icvkzl35.8-14.4Memorial Health SystemComment on above:Performed By: #### BMP #### [place] [address] Behavioral Health Therapist: Alejandro Salazar MDHematocrit (Bld) [Volume fraction]34.2 %Low 36.3-47.1MUCLA Medical Center, Santa MonicaComment on above:Performed By: #### BMP #### [place] [address] Behavioral Health Therapist: Alejandro Slaazar MDHemoglobin (Bld) [Mass/Vol]10.7 g/dLLow11.9-15.1 [facility] Health SystemComment on above:Performed By: #### BMP #### [address] [address] Behavioral Health Therapist: Ara Prettymature granulocytes/100 WBC (Bld)0 %Normal0 [facility] Health SystemComment on above:Performed By: #### BMP #### [address] [address] Behavioral Health Therapist: Alejandro Salazar MDLymphocytes (Bld) [#/Vol]2.11 10*3/uLNormal 1.10-3.70Mem[facility] Health SystemComment on above:Performed By: #### BMP #### [address] [address] Behavioral Health Therapist: Yanick Prettymphocytes/100 WBC (Bld)55 %Tiju59-38KqfsvMemorial Health SystemComment on above:Performed By: #### BMP #### [address] [address] Behavioral Health Therapist: LIANA PrettyCH (RBC) [Entitic mass]27.1 aqMysmea86.2-33.5 [facility] SystemComment on above:Performed By: #### BMP #### [address] [address] Behavioral Health Therapist: LIANA PrettyCHC (RBC) [Mass/Vol]31.3 g/iEVtqzrz89.4-34.8 [facility] SystemComment on above:Performed By: #### BMP #### [address] [address] Behavioral Health Therapist: LIANA PrettyCV (RBC) [Entitic vol]86.6 zKMlbrqs86.6-102.9 [facility] Health SystemComment on above:Performed By: #### BMP #### [address] [address] Behavioral Health Therapist: Alejandro Salazar MDMonocytes (Bld) [#/Vol]0.35 10*3/uLNormal 0.10-1.20[facility] Health SystemComment on above:Performed By: #### BMP #### [address] [address] Behavioral Health Therapist: LIANA Prettyonocytes/100 WBC (Bld)9 %Normal3-12[facility] Health SystemComment on above:Performed By: #### BMP #### [address] [address] Behavioral Health Therapist: Alejandro Salazar MDNeutrophil (Seg)31 %Olq60-21ZjwuvMemorial Health SystemComment on above:Performed By: #### BMP #### [address] [address] Behavioral Health Therapist: Alejandro Salazar MDNRBC Automated0.0 per 100 WBCNormal0.0Mem[facility] Health SystemComment on above:Performed By: #### BMP #### [address] [address] Behavioral Health Therapist: IBIS Prettylatelet mean volume (Bld) [Entitic vol]9.1 fL Normal8.1-13.5Mem[facility] Health SystemComment on above:Performed By: #### BMP #### [address] [address] Behavioral Health Therapist: Alejandro Salazar MDPlatelets (Bld) [#/Vol]238 10*3/fHHekyem014-082 [facility] SystemComment on above:Performed By: #### BMP #### [address] [address] Behavioral Health Therapist: Alejandro Salazar MDRBC (Bld) [#/Vol]3.95 10*6/uLNormal3.95-5.11 [facility] SystemComment on above:Performed By: #### BMP #### [employer] [address] [place] [address] Behavioral Health Therapist: FIFI Pretty (d) [#/Vol]3.9 10*3/uLNormal3.5-11.3[facility] Of East Los AngelesComment on above:Performed By: #### BMP #### [employer] [address] [place] [address] Behavioral Health Therapist: Alejandro Salazar [facility] OKLA[facility] CITYonstrihealth [facility] Formson 98-86-6848Ecuxmav Forms [id number]#1.00OTGTOhioHealth Doctors Hospital Cult,Urineon 65-41-8914Ursr,UrineSpecimen Description .URINE Culture NO SIGNIFICANT GROWTH Report Status FINAL 01/27/2025NoBarberton Citizens HospitalComment on above:Performed By: #### BMP #### [employer] [address] [place] [address] Behavioral Health Therapist: NABOR Prettyulture, Urineon 36-84-6230Snssqiijkxhpc identified Cx Nom (Unsp spec)NO SIGNIFICANT GROWTHPioneer Community Hospital Of Patrick [employer], [employer]. Specimen Description.URINEBon [facility] Misfit Wearables [facility] HospitalBon Mountain Community Medical ServicesCareerImp [facility] HospitalFLUORO FOR SURGICAL PROCEDURESon 26-72-7927IZKNKI FOR SURGICAL PROCEDURESRadiology exam is complete. No Radiologist dictation. Please follow up with ordering provider. Final resultNormSCCI Hospital LimaGuidance-- during surgeryon 92-79-7910Wcussabkq exam is complete. No Radiologist dictation. Please follow up with ordering provider. PN RIS CONSOLIDATED.Auto Diff 1on 64-22-6138Vwxo Auglaize %10 %Normal1-[address] [place], [place] [address]Comment on above:Performed By: #### [id number], [id number], [id number], [id number], [id number] #### [facility] ([facility]) [address], [place] [address]Bmts Abs#0.0 k23Tuiffi6.0-0.2Magraultman alliance community hospital HospitalComment on above:Performed By: #### [id number], [id number], [id number], [id number], [id number] #### [facility] (DEFAULT) [address] [place] [address]Qcrvcxwhd/100 WBC (Bld)0.7 %Normal0.2-2.0[facility] Comment on above:Performed By: #### [id number], [id number], [id number], 90866040, [id number] #### [facility] (DEFAULT) [address] [place] [address]Jjt Abs#0.1 x47Arbfov9.0-0.4[facility] HospitalComment on above:Performed By: #### 8660490, [id number], [id number], 69598424, [id number] #### [facility] (DEFAULT) [address] [place] [address]Hkjzhwajrme/100 WBC (Bld)2.4 %Normal0.9-4.0[facility] HospitalComment on above:Performed By: #### 5583632, [id number], [id number], [id number], [id number] #### [facility] (DEFAULT) [address] [place] [address]Rtqfa Abs#1.8 v32Ftxzhr2.3-2.9[facility] HospitalComment on above:Performed By: #### 1568170, [id number], [id number], 16108016, [id number] #### [facility] (DEFAULT) [address] [place] [address]Hftjqaksjpg/100 WBC (Bld)38 %Lcaxpm29-85Oglstzqo Hospital Comment on above:Performed By: #### [id number], [id number], [id number], 24016968, [id number] #### [facility] (DEFAULT) [address] [place] [address]Rxaj Abs#0.5 n62Rgxtiu6.0-0.8[facility] HospitalComment on above:Performed By: #### 5456908, [id number], [id number], 59897799, [id number] #### [facility] (DEFAULT) [address] [place] [address]Lvua Abs#2.4 l95Mpzbzq8.5-9.2MMercy Health Springfield Regional Medical CenterComment on above:Performed By: #### 1605669, [id number], 1177753971, 40098894, [id number] #### [facility] (DEFAULT) [address] [place] [address]Jeakwcwgfen/100 WBC (Bld)49 %Kdtvzy36-28Amwbfykm Hospital Comment on above:Performed By: #### [id number], [id number], [id number], 74349985, [id number] #### [facility] (DEFAULT) [address] [place] [address]Vcicy Metabolic Panelon 40-32-9713Oojhd gap [Moles/Vol]12 mmol/L9 - 16 mmol/LBon Mountain Community Medical ServicesCareerImp HealthCalcium [Mass/Vol]8.6 mg/dL8.6 - 10.4 mg/dLBon Mountain Community Medical ServicesCareerImp HealthChloride [Moles/Vol]106 mmol/L98 - 107 mmol/LBon Mountain Community Medical ServicesCareerImp HealthCO2 [Moles/Vol]21 mmol/L20 - 31 mmol/LBon [facility]ner Medical CenterCreatinine [Mass/Vol]0.9 mg/dL0.6 - 0.9 mg/dLBon [facility] HealthEst, Glom Filt Rate87- PINFBon Wexner Medical CenterComment on above: These results are not intended [...] therapy that affects renal tubular secretion. Glucose [Mass/Vol]126 mg/pYHdoz75 - 99 mg/dLBon Secours Mercy Health Interpretation and review of laboratory resultsAbnormalSentara Careplex Hospital Potassium [Moles/Vol]3.7 mmol/L3.7 - 5.3 mmol/LBon Wexner Medical CenterSodium [Moles/Vol]139 mmol/L136 - 145 mmol/LBon [facility]ner Medical CenterUrea nitrogen [Mass/Vol]12 mg/dL6 - 20 mg/dLBon [facility] Basic Metabolic Profon 57-90-0703Aryqj gap [Moles/Vol]12 mmol/LNormal9-16[facility] Health SystemComment on above:Performed By: #### BMP #### [employer] [address] [place] [address] Behavioral Health Therapist: NABOR Prettyalcium [Mass/Vol]8.6 mg/dLNormal8.6-10.4[facility] Health SystemComment on above:Performed By: #### BMP #### [facility] [address] [place] [address] Behavioral Health Therapist: NABOR Prettyhloride [Moles/Vol]106 mmol/ISutdek39-058RvnzaMemorial Health SystemComment on above:Performed By: #### BMP #### [facility] [address] [place] [address] Behavioral Health Therapist: Alejandro Salazar MDCO2 [Moles/Vol]21 mmol/RHmbvqn19-84CmwvfMemorial Health SystemComment on above:Performed By: #### BMP #### [facility] [address] [place] [address] Behavioral Health Therapist: NABOR Prettyreatinine [Mass/Vol]0.9 mg/dLNormal0.6-0.9[facility] Health SystemComment on above:Performed By: #### BMP #### [facility] [address] [place] [address] Behavioral Health Therapist: Alejandro Salazar MDGFR/1.73 sq M.predicted among non-blacks MDRD (S/P/Bld) [Vol rate/Area]87 mL/min/{1.73_m2}Normal>60[facility] Health SystemComment on above:Result Comment: These results are not intended for [...] or following therapy that affects renal tubular secretion.Performed By: #### BMP #### [facility] [employer] [address] [place] [address] Behavioral Health Therapist: Alejandro Salazar MDGlucose [Mass/Vol]126 mg/zVNthr12-16DwnptUCLA Medical Center, Santa MonicaComment on above:Performed By: #### BMP #### [place] [address] Behavioral Health Therapist: IBIS Prettyotassium [Moles/Vol]3.7 mmol/LNormal3.7-5.3 [facility] SystemComment on above:Performed By: #### BMP #### [facility] [employer] [address] [place] [address] Behavioral Health Therapist: Alejandro Salazar MDSodium [Moles/Vol]139 mmol/BQaevdo246-941PuibqMemorial Health SystemComment on above:Performed By: #### BMP #### [facility] [employer] [address] [place] [address] Behavioral Health Therapist: Alejandro Salazar MDUrea nitrogen [Mass/Vol]12 mg/dLNormal6-20[facility] Health SystemComment on above:Performed By: #### BMP #### [facility] [employer] [address] [place] [address] Behavioral Health Therapist: Vianey Pretty 04-74-2715Bhavgsqvnha distribution width (RBC) [Ratio]12.7 %11.8 - 14.4 %Sentara Careplex HospitalHematocrit (Bld) [Volume fraction]38.1 %36.3 - 47.1 %[facility] Careplex HospitalHemoglobin (Bld) [Mass/Vol] 12 g/dL11.9 - 15.1 g/dLBon [facility] HospitalH (RBC) [Entitic mass]27.9 pg 25.2 - 33.5 pgBon [facility] HospitalHC (RBC) [Mass/Vol]31.5 g/dL28.4 - 34.8 g/dLBon [facility] HospitalV (RBC) [Entitic vol]88.6 fL82.6 - 102.9 fLSentara Careplex HospitalNucleated RBC/100 WBC (Bld) [Ratio]0 %0.0 per 100 WBCSentara Careplex HospitalPlatelet mean volume (Bld) [Entitic vol]9 fL8.1 - 13.5 fLSentara Careplex HospitalPlatelets (Bld) [#/Vol]261 10*3/uLSentara Careplex Hospital RBC (Bld) [#/Vol]4.3 10*6/uL3.95 - 5.11 m/uLSentara Careplex HospitalWBC other (Bld) [#/Vol]5.9Bon [facility] Smet Memorial HospitalErythrocyte distribution width (RBC) [Ratio]12.7 %Hdyiwx85.8-14.4[facility] Of East Los AngelesComment on above:Performed By: #### BMP #### [employer] [address] [place], [place] [address] Behavioral Health Therapist: Alejandro Salazar MDHematocrit (Bld) [Volume fraction]38.1 %Normal 36.3-47.1MercCommunity Hospital of San BernardinoComment on above:Performed By: #### BMP #### [employer] [address] [place], [place] [address] Behavioral Health Therapist: Alejandro Salazar MDHemoglobin (Bld) [Mass/Vol]12.0 g/dLNormal 11.9-15.1MercCommunity Hospital of San BernardinoComment on above:Performed By: #### BMP #### [address] [address] Behavioral Health Therapist: LIANA PrettyCH (RBC) [Entitic mass]27.9 nePvxbkz58.2-33.5 [facility] SystemComment on above:Performed By: #### BMP #### [address] [address] Behavioral Health Therapist: PINA PrettyC (RBC) [Mass/Vol]31.5 g/rFXrkrto95.4-34.8 [facility] SystemComment on above:Performed By: #### BMP #### [address] [address] Behavioral Health Therapist: LIANA PrettyCV (RBC) [Entitic vol]88.6 rSEuygap35.6-102.9 [facility] SystemComment on above:Performed By: #### BMP #### [address] [address] Behavioral Health Therapist: GABRIELA Pretty Automated0.0 per 100 WBCNormal0.0[facility] Health SystemComment on above:Performed By: #### BMP #### [address] [address] Behavioral Health Therapist: Ranjan Pretty mean volume (Bld) [Entitic vol]9.0 fL Normal8.1-13.5[facility] Health SystemComment on above:Performed By: #### BMP #### [address] [address] Behavioral Health Therapist: Kristina Pretty (Bld) [#/Vol]261 10*3/oGKtgjhe578-926 [facility] SystemComment on above:Performed By: #### BMP #### [address] [address] Behavioral Health Therapist: ARIEL Pretty (Bld) [#/Vol]4.30 10*6/uLNormal3.95-5.11 [facility] SystemComment on above:Performed By: #### BMP #### [address] [place], [place] [address] Behavioral Health Therapist: MONA Pretty (Bld) [#/Vol]5.9 10*3/uLNormal3.5-11.3[facility], Santa MonicaComment on above:Performed By: #### BMP #### [address] [address] Behavioral Health Therapist: KENNA Pretty w/ Auto Diffon 23-45-6373Mcqurcrnzxc distribution width (RBC) [Ratio]13.6 %Rtnjki10.5-15.0[facility] HospitalComment on above:Performed By: #### 9044945, 4203973089, 7559301294, 05672593, 374594976 #### [facility] (DEFAULT) [address] [place] [address]Qquwtmyhro (Bld) [Volume fraction]37.0 %Qjzeac11.7-40.4 [facility] HospitalComment on above:Performed By: #### 8739077, 6367740807, 2496067098, 93917744, 041521776 #### [facility] (DEFAULT) [address] [place] [address]Smubtnwsng (Bld) [Mass/Vol]12.7 g/nQErvcnf12.3-15.9 [facility] HospitalComment on above:Performed By: #### 4082539, 5502352408, 7289324996, 40537691, 487382253 #### [facility] (DEFAULT) [address] [place] [address] 72[address]Aiz Diff?AutoInvalid Interpretation [facility] Comment on above:Performed By: #### 3291582, 1816904415, 6773121465, 99200192, 619435210 #### [facility] (DEFAULT) [address] [place] [address] 402[address]WKD (RBC) [Entitic mass]29 rzEivlil82-57Nwqstfnz Hospital Comment on above:Performed By: #### 5944460, 4201382152, 9913309257, 56810402, 467259030 #### [facility] (DEFAULT) [address] [place] [address] 99655OOVV (RBC) [Mass/Vol]34 g/eCQvqsqt72-02Jwgemcxd Hospital Comment on above:Performed By: #### 3046348, 0653908365, 3884287174, 89005050, 357206791 #### [facility] (DEFAULT) [address] [place] [address] 01177EHK (RBC) [Entitic vol]84 rCYeqrtl41-233Iovoqcop Hospital Comment on above:Performed By: #### 5699989, 0003421528, 7637264226, 98541846, 826660815 #### [facility] (DEFAULT) [address] [place] [address] 39[address]Juhyhdwx525 g67Rwiclk004-398Wgxybjlx HospitalComment on above:Performed By: #### 4165178, 8385265799, 8807251474, 91861522, 201230703 #### [facility] (DEFAULT) [address] [place] [address]35[address]Rkitoinj mean volume (Bld) [Entitic vol]7.3 fLNormal 6.3-10.2[facility] HospitalComment on above:Performed By: #### 9145893, 7304663267, 8993128280, 18993740, 092650424 #### [facility] (DEFAULT) [address] [place] [address]YWO5.39 s31Rwwxll9.70-5.30[facility] HospitalComment on above:Performed By: #### 3077714, 2893489463, 4490006507, 22168282, 991950056 #### [facility] (DEFAULT) [address] [place] [address] 12702FZO3.8 k32Qaierc5.5-10.5[facility] HospitalComment on above: Performed By: #### 4141462, 3731311493, 7999296926, 43963280, 392517305 #### [facility] (DEFAULT) [address] [place] [address] 345[address]DIV Standardon 25-41-0311aOJB Non AA>60Invalid Interpretation [facility], AvonComment on above:Performed By: #### 9107880, 4049919963, 3334664197, 68606100, 809191041 #### [facility] (DEFAULT) [address] [place] [address] 59462oSCZ AA>60Invalid Interpretation [facility] Comment on above:Performed By: #### 7379765, 0557499005, 1327381821, 48538293, 530850962 #### [facility] (DEFAULT) [address] [place] [address] 138[address]Icstgos [Mass/Vol]3.7 g/dLNormal3.5-5.0[facility] Comment on above:Performed By: #### 2203166, 5952141168, 8263364947, 99554735, 155075220 #### [facility] (DEFAULT) [address] [place] [address] 09684Vzpuaez/Globulin [Mass ratio]1.0 {ratio}Low1.4-2.6[facility] HospitalComment on above:Performed By: #### 1170406, 7875181513, 3199669114, 41404013, 937730396 #### [facility] (DEFAULT) [address] [place] [address]69[address]Xyp Phos70 IU/IMqvspd06-53Wgdqqreo HospitalComment on above:Performed By: #### 7835368, 8806843025, 8615009317, 85536325, 885981960 #### [facility] (DEFAULT) [address] [place] [address] 576[address]FJY [Catalytic activity/Vol]75.0 U/LHigh14.0-54.0[facility] HospitalComment on above:Performed By: #### 2839165, 1592372932, 8347465355, 79345193, 755579564 #### [facility] (DEFAULT) [address] [place] [address] 57287ILU [Catalytic activity/Vol]27 U/REwxagh85-47Hjrsptkg HospitalComment on above:Performed By: #### 1318724, 5146369373, 0480318735, 89854691, 352655454 #### [facility] (DEFAULT) [address] [place] [address]66[address]Kngh Total0.7 mg/dLNormal0.3-1.2[facility] HospitalComment on above:Performed By: #### 3427744, 0498922263, 2454129547, 41236355, 964396554 #### [facility] (DEFAULT) [address] [place] [address] 615[address]Wthtldgvbe [Mass/Vol]0.94 mg/dLNormal0.60-1.30[facility] HospitalComment on above:Performed By: #### 8819894, 6494633552, 2527835558, 99256108, 774356265 #### [facility] (DEFAULT) [address] [place] [address]Huvcksnj (S) [Mass/Vol]3.5 g/dLNormal1.5-4.3[facility] HospitalComment on above:Performed By: #### 6232909, 1148211511, 9630114688, 90455885, 213536351 #### [facility] (DEFAULT) [address] [place] [address] 428[address]Pyjhmslmgo835 mOsm/LInvalid Interpretation CodeRegency Hospital Cleveland West HospitalComment on above:Performed By: #### 1137553, 0948612749, 3410873713, 63360404, 874399492 #### [facility] (DEFAULT) [address] [place] [address]76[address]Ibbruip [Mass/Vol]7.2 g/dLNormal6.5-8.1[facility] Hospital Comment on above:Performed By: #### 2827693, 9557562106, 3733054688, 29745598, 747178586 #### [facility] (DEFAULT) [address] [place] [address] 515[address]Gpan nitrogen [Mass/Vol]13 mg/dLNormal8-26[facility] HospitalComment on above:Performed By: #### 6561498, 8344527470, 2538688186, 54700115, 173453226 #### [facility] (DEFAULT) [address] [place] [address] 250[address]Ussh nitrogen/Creatinine [Mass ratio]13.8 mg/mgNormal 4.6-16.2[facility] HospitalComment on above:Performed By: #### 6098284, 2914014964, 7758431679, 77600284, 676164475 #### [facility] (DEFAULT) [address] [place] [address] 58[address]Guzmw gap [Moles/Vol]13.6 mmol/LNormal5.0-19.0[facility] HospitalComment on above:Performed By: #### 5075354, 0181092176, 5001282533, 99262866, 488869985 #### [facility] (DEFAULT) [address] [place] [address] 29[address]Mhgioxz [Mass/Vol]9.4 mg/dLNormal8.9-10.3[facility] Comment on above:Performed By: #### 5219659, 8705079101, 2004101683, 57130041, 192121108 #### [facility] (DEFAULT) [address] [place] [address] 39[address]Ynnmtqta [Moles/Vol]104 mmol/LCakwrq185-881Ngvrhopr HospitalComment on above:Performed By: #### 8460299, 5435369019, 2481674293, 67194429, 704456913 #### [facility] (DEFAULT) [address] [place] [address] 32286ME7 [Moles/Vol]25 mmol/DDbhpcd03-22Fnammnik [facility] Comment on above:Performed By: #### 1262492, 7209857893, 7077976393, 59619892, 228911583 #### [facility] (DEFAULT) [address] [place] [address] 92[address]Mjovivo [Mass/Vol]93.0 mg/fMRiokzr36.0-118.0[facility] HospitalComment on above:Performed By: #### 9450241, 6747560069, 5435954877, 78955205, 872520736 #### [facility] [address] [place] [address] 61999Atbputont [Moles/Vol]3.6 mmol/LNormal3.6-5.1[facility] HospitalComment on above:Performed By: #### 7936840, 1719284125, 7861835844, 33032410, 278459014 #### [facility] [address] [place] [address] 27[address]Tniflq [Moles/Vol]139.0 mmol/XNamiox316.0-144.0[facility] HospitalComment on above:Performed By: #### 5868192, 2731996597, 6319336233, 65943257, 695150180 #### [facility] ([facility] [address] [place] [address]EH Abdomen/Pelvis w/o Contraston 11-69-9460SH Abdomen/Pelvis w/o ContrastEXAMINATION: CT Abdomen/Pelvis w/o Contrast HISTORY: left flank [...] Jennifer Gates MD 01/26/25 2:00 pm Technologist: [facility] HospitalED Note-Nursingon 65-58-9657HB Note-NursingPt stated she was seen in [facility] recently and Dr. Plata is requesting records. Vault Keeper called [facility] to get records faxed. Stated they would be faxing results over. t. Mary's Medical CenterExtra Blueon 94-09-6556Lmrr CollectedYesInvalid Interpretation Code [facility] on above:Performed By: #### 8168159, 3679199559, 0903535329, 27186062, 181254256 #### [facility] (DEFAULT) [address] [place], [place] [address]Cyphysvjfhz Urinalysison 35-26-4901Rxaykivy LM Ql (Urine sed)NoneNoneBon [facility] Hospital And Medical CenterCash4GoldCasts LM.LPF (Urine sed) [#/Area]2 TO 5 HYALINE Reference range defined for non-centrifuged specimen.Bon [facility] [employer] Games Information TechnologyEpithelial cells LM.HPF (Urine sed) [#/Area]2 TO 5Bon [facility] [employer] RBC LM.HPF (Urine sed) [#/Area]TOO NUMEROUS TO COUNTBon [facility] Comment on above:Reference range defined for non-centrifuged specimen.WBC LM.HPF (Urine sed) [#/Area]20 TO 50[facility] Test Serum 1on 07-63-9698Osqz Serum Internal ControlOKSt. Mary's Medical CenterComment on above:Performed By: #### 3565125, 0412153357, 2408195891, 77971352, 438768335 #### [facility] (DEFAULT) [address] [place] [address] 224[address]Pmdxwodql Test Serum QualNegativeSt. Mary's Medical Center Comment on above:Performed By: #### 0916026, 0742776611, 8458130911, 53549657, 865646543 #### [facility] (DEFAULT) [address] [place] [address] 335[address]Pllyh Analysison 81-32-4507Namgfqs descriptionSee [facility] Park HospitalComment on above:Result Comment: (NOTE) Specimen consists of one rondon sample. The total weight is less than 2 mg.Performed By: #### ASTONE #### [employer] [address] [place] [address] Behavioral Health Therapist: Rupesh DriverSnoqualmie Valley Hospitalkelly [facility] Medical CenterComment on above:Result Comment: (NOTE) Sample composed primarily of organic [...] composition determined by FTIR analysis. Performed By: [employer] [address] [place] [address] Inspector Multifocal Lens: Jorge Melendrez MD, PhD CLIA Number: [id number] By: #### ASTONE #### [employer] [address], [place] [address] Behavioral Health Therapist: Travis Driver [facility] Medical CenterComment on above:Result Comment: (NOTE) Sample mass < 2 mg. Small sample size prevents accurate weight determination.Performed By: #### ARCHANA #### [facility] [address] [place] [address] Behavioral Health Therapist: Mane Tolbert MDTransfer Noteon 02-75-7270Lfjknqym NotePatient requires transfer to [facility] for a diagnosis of hydronephrosis. 1527- Kylie from [facility], Tamiko kim, hospitalist speaks to Dr. Plata, accepts, top gun is open. 1539- Called [facility], emery wheel molder Austin gave 20 minute ETA. 1547- [facility] arrives 1550- [facility] calls, bed assignment given, room 321 bed 2, report number [id number] 1610- [facility] departs [Electronically Signed on: 01/26/2025 16:28 EDT] Beth Rodriguez RN [Verified on: 01/26/2025 16:28 EDT] Beth Rodriguez RN 1630- Dr. Plata signs physician note, this note was faxed to [facility] at fax number [phone]. [Electronically Signed on: 01/26/2025 16:31 EDT] Beth Rodriguez RNNoLouis Stokes Cleveland VA Medical CenterUA Synqd6bu 90-13-6040FN Bacteria TraceSt. Mary's Medical CenterComment on above:Order Comment: Urinalysis Microscopic order added on by Discern Expert Rules system.Performed By: #### 7701822, 7727094006, 4126958275, 19150489, 895538950 #### [facility] (DEFAULT) [address] [place] [address] Comment.See CommentInvalid Interpretation CodeOhiohealth Grove City Methodist HospitalComment on above:Order Comment: Urinalysis Microscopic order added on by Auth0 Expert Rules system.Result Comment: 4+ Sulfa Crystals presentPerformed By: #### 9088709, 1232402509, 2184300206, 19802624, 475258885 #### [facility] (DEFAULT) [address] [place], [place] [address]UA RBCGross BloodSt. Mary's Medical CenterComment on above: Order Comment: Urinalysis Microscopic order added on by Auth0 Expert Rules system.Performed By: #### 5969551, 3242088848, 9634721438, 89195388, 385802374 #### [facility] (DEFAULT) [address] [place] [address] Squam EpiModerateSt. Mary's Medical CenterComment on above:Order Comment: Urinalysis Microscopic order added on by Auth0 Expert Rules system.Performed By: #### 6276867, 1351140058, 9809975393, 80169395, 176215763 #### [facility] (DEFAULT) [address] [place], [place] [address]UA WBC3-5NoLouis Stokes Cleveland VA Medical CenterComment on above:Order Comment: Urinalysis Microscopic order added on by Auth0 Expert Rules system. Performed By: #### 2234313, 8481623605, 3253761148, 73442874, 119346267 #### [facility] (DEFAULT) [address] [place], [place] [address]UA w Culture if Ind Standardon 36-86-1503Cvcvqrjcbh UA St. Mary's Medical CenterComment on above:Performed By: #### 0216196, 4759994048, 7530348277, 05329746, 728645207 #### [facility] (DEFAULT) [address] [place], [place] [address]Color (U)RedSt. Mary's Medical CenterComment on above:Result Comment: Test cannot be satisfactorily determined due to intensely colored urine. Parameterswhich will be affected are: GLU, BRAIN, URO, KET, BLO, PRO, NIT, LISSA, SG, AND pH.Performed By: #### 4934368, 4040837568, 8169737771, 52852733, 232766893 #### [facility] (DEFAULT) [address] [place] [address]29[address]Ybtpjcj?YesNormalRegency Hospital [facility] West HospitalComment on above:Result Comment: Result created by rule GL_MAGR_ADD_UA_CULT Result created by rule GL_MAGR_ADD_UA_CULT1Performed By: #### 5261855, 3376897094, 7190721189, 07617484, 284686152 #### [facility] (DEFAULT) [address] [place] [address] 614[address]Gokcicw (U) [Mass/Vol]NegativeAdena Health System Hospital Comment on above:Performed By: #### 5361459, 9758916676, 7864579148, 23578187, 341579282 #### [facility] (DEFAULT) [address] [place] [address] 79[address]Gxskqwd Ql (U)NegativeNoWexner Medical Center HospitalComment on above:Performed By: #### 0038505, 9886807105, 9000584908, 02187895, 132523714 #### [facility] (DEFAULT) [address] [place] [address] 824[address]Bgtnr?IndicatedInvalid Interpretation CodeRegency Hospital Cleveland West HospitalComment on above:Result Comment: Result created by rule GL_MAGR_ADD_UA_MICROPerformed By: #### 3607247, 0356409917, 4116718014, 91735946, 581511151 #### [facility] (DEFAULT) [address] [place] [address] 550[address]BC BilirubinSMALLAbnormCommunity Memorial Hospital HospitalComment on above:Performed By: #### 0271984, 3140418741, 2163185409, 37218074, 694891656 #### [facility] (DEFAULT) [address] [place] [address]PG BloodLARGEAbnormalNEGATIVERegency Hospital Cleveland West HospitalComment on above:Performed By: #### 3611161, 7001587402, 4839300665, 82151241, 680949735 #### [facility] (DEFAULT) [address] [place] [address]61[address]QY ClarityCLOUDYAbnormalCLEARRegency Hospital Cleveland West HospitalComment on above:Performed By: #### 4307753, 8541234880, 8910501163, 76392202, 695613291 #### [facility] (DEFAULT) [address] [place] [address] 43478EZ Leuk EstMODERATEAbnormalNEGLancaster Municipal Hospital Hospital Comment on above:Performed By: #### 9766139, 1672114741, 7173042432, 03537870, 440422596 #### [facility] (DEFAULT) [address] [place] [address] 160[address]ZU NitriteNegativeNormalNEGATIVERegency Hospital Cleveland West HospitalComment on above:Performed By: #### 3348552, 1226589136, 5769980805, 50693876, 242385931 #### [facility] (DEFAULT) [address] [place] [address] 00766CE pH7.4Vircpn4-3Usaktnma HospitalComment on above: Performed By: #### 4998343, 1014537628, 8378322056, 92044570, 049140338 #### [facility] (DEFAULT) [address] [place] [address] 64[address]AT Zytiqrq585QchseqqdDHAXGUFTDwfaqibs HospitalComment on above:Performed By: #### 6580956, 9688699118, 3752408927, 66539148, 205416738 #### [facility] (DEFAULT) [address] [place] [address] 81970GM Spec Grav1.761Vzdndb0.001-1.035[facility] HospitalComment on above:Performed By: #### 1921756, 1830230778, 7964570306, 17221965, 174509638 #### [facility] (DEFAULT) [address] [place] [address]KY Urobilinogen0.2 mg/dLNormal0.2-1.0[facility] Comment on above:Performed By: #### 7260066, 3797741583, 7002469847, 88570891, 305358626 #### [facility] (DEFAULT) [address] [place] [address] 585[address]Sexll SourceClean [facility] HospitalComment on above:Performed By: #### 8318243, 1309320566, 6382287293, 33703149, 572028151 #### [facility] (DEFAULT) [address] [place] [address] 61806TS w/Reflex Cultureon 92-32-3838Jhjzhixjc, SemiQt,Ur NegativeNormalNEGMemorial Health SystemComment on above:Performed By: #### RIZWANA RODRIGUEZ #### [facility] [employer] [address] [place] [address] Behavioral Health Therapist: Joyce Pretty UrineLARGEAbnormalNEGMemorial Health SystemComment on above:Performed By: #### JENNIFER UMFERCHOO #### [facility] [employer] [address] [place] [address] Behavioral Health Therapist: NABOR Prettylarity (U)CloudyAbnormalCLEARMercy Promise Hospital Of East Los AngelesComment on above:Performed By: #### UATato UMICAO #### [facility] [address] [place] [address] Behavioral Health Therapist: NABOR Prettyolor (U)OrangeAbnormalYELMerNorthBay VacaValley HospitalComment on above:Result Comment: INTERPRET WITH CAUTION DUE TO INTENSE COLOR OF URINE.Performed By: #### UAX UMICAO #### [facility] [address] [place] [address] Behavioral Health Therapist: Alejandro Salazar MDGlucose Ql (U)NegativeNormalNEGMemorial Health SystemComment on above:Performed By: #### UAX, UMICAO #### [facility] [address] [place] [address] Behavioral Health Therapist: Alejandro Salazar MDKetones Ql (U)NegativeNormalNEGMemorial Health SystemComment on above:Performed By: #### UAX, UMICAO #### [facility] [address] [place] [address] Behavioral Health Therapist: Alejandro Salazar MDLeukocyte esterase Test strip Ql (U)MODERATE AbnormalNEGMemorial Health SystemComment on above:Performed By: #### UATato, UMICAO #### [facility] [address] [place] [address] Behavioral Health Therapist: Radha Prettytrite,UrNegativeNormalNEGMemorial Health SystemComment on above:Performed By: #### JENNIFER UMSRIKANTH #### [facility] [address] [place] [address] Behavioral Health Therapist: IBIS Pretty,Ur6.1Lvbrxz5.0-8.0Memorial Health SystemComment on above:Performed By: #### JENNIFER, UMICAO #### [facility] [address] [place] [address] Behavioral Health Therapist: Ash Pretty Ql (U)2+ mg/dLAbnormalNEGMemorial Health SystemComment on above:Performed By: #### UAX, UMICAO #### [facility] [address] [place] [address] Behavioral Health Therapist: Rosaura Pretty. [place],Ur1.707Lffmlk9.005-1.030Memorial Health SystemComment on above:Performed By: #### UATato, UMICAO #### [facility] [address] [place] [address] Behavioral Health Therapist: Alejandro Madoff, MDUrobilinogen,UrNormalNormal0.0-1.0Memorial Health SystemComment on above:Performed By: #### RIZWANA RODRIGUEZ #### [employer] [address] [place] [address] Behavioral Health Therapist: Alejnadro Salazar MDUrinalysis with Reflex to Cultureon 01-26-2025 Bilirubin Ql (U)NegativeNEGATIVEBon Secours [facility]cy HealthClarity (U)Cloudy AbnormalClearBon Secours University Hospitals Health Systemy HealthColor (U)OrangeAbnormalYellowBon SecWenatchee Valley Medical Centery HealthComment on above:INTERPRET WITH CAUTION DUE TO INTENSE COLOR OF URINE.Glucose Test strip (U) [Mass/Vol]NegativeNEGATIVE mg/dLBon Secours University Hospitals Health Systemy HealthHemoglobin Auto test strip Ql (U)LARGEAbnormalNEGATIVEBon Secours University Hospitals Health Systemy HealthInterpretation and review of laboratory resultsAbnormalBon Secours University Hospitals Health Systemy HealthKetones (U) [Mass/Vol]NegativeNEGATIVE mg/dLBon SecOur [facility] Health Leukocyte esterase Test strip Ql (U)MODERATEAbnormalNEGATIVEBon Secours University Hospitals Health Systemy HealthNitrite Ql (U)NegativeNEGATIVEBon Secours University Hospitals Health Systemy HealthpH (U)6.5 [pH]5.0 - 8.0Bon [facility] Health Systemy HealthProtein (U) [Mass/Vol]2+AbnormalNEGATIVE mg/dLBon Secours [facility]cy HealthSpecific gravity (U) [Rel density]1.0161.005 - 1.030Bon SecWenatchee Valley Medical Centery HealthUrobilinogen Qn (U)Normal0.0 - 1.0 EU/dLBon Secours University Hospitals Health Systemy HealthBon SecWenatchee Valley Medical Centery HealthUrinalysis,Microon 68-38-9069CpnlrwfrDwzlGpxpun NONEMemorial Health SystemComment on above:Performed By: #### RIZWANA RODRIGUEZ #### [employer] [address] [place] [address] Behavioral Health Therapist: NABOR Prettyasts2 TO 5 HYALINENormal0-8Memorial Health SystemComment on above:Result Comment: Reference range defined for non- centrifuged specimen.Performed By: #### UAKYLE GodwinICAPatrizia #### [facility] [address] [place] [address] Behavioral Health Therapist: Alejandro Salazar MDEpithelial cells LM Ql (Urine sed)2 TO 5Normal 0-5Memorial Health SystemComment on above:Performed By: #### UATato UMICAO #### [facility] [address] [place] [address] Behavioral Health Therapist: Karishma Pretty RBC'sTOO NUMEROUS TO COUNTNormal0-4Memorial Health SystemComment on above:Result Comment: Reference range defined for non-centrifuged specimen.Performed By: #### RIZWANA RODRIGUEZ #### [facility] [address] [place] [address] Behavioral Health Therapist: Karishma Pretty WBC's20 TO 66Bguhmg4-2SdmhrMemorial Health SystemComment on above:Performed By: #### RIZWANA RODRIGUEZ #### [facility] [address] [place] [address] Behavioral Health Therapist: Maite Pretty,Urineon 26-26-2013Myvv,UrineSpecimen Description .BLADDER URINE FROM CYSTOSCOPY Special Requests Site: Urine Culture NO GROWTH Report Status FINAL 01/23/2025NoBarberton Citizens HospitalComment on above:Performed By: #### URC #### [facility] [address] [place] [address] Behavioral Health Therapist: Edward Pretty Metabolic Profon 87-10-6112Xeksb gap [Moles/Vol]12 mmol/LNormal9-16Memorial Health SystemComment on above: Performed By: #### BMP #### [facility] [address] [place] [address] Behavioral Health Therapist: NABOR Prettyalcium [Mass/Vol]8.4 mg/dLLow8.6-10.4Memorial Health SystemComment on above:Performed By: #### BMP #### [employer] [address] [place] [address] Behavioral Health Therapist: NABOR Prettyhloride [Moles/Vol]107 mmol/XPzqjhy68-987EerxzMemorial Health SystemComment on above:Performed By: #### BMP #### [facility] [address] [place] [address] Behavioral Health Therapist: Alejandro Salazar MDCO2 [Moles/Vol]21 mmol/YVweifd54-70RrxtoMemorial Health SystemComment on above:Performed By: #### BMP #### [facility] [address] [place] [address] Behavioral Health Therapist: NABOR Prettyreatinine [Mass/Vol]0.7 mg/dLNormal0.6-0.9Memorial Health SystemComment on above:Performed By: #### BMP #### [facility] [address] [place] [address] Behavioral Health Therapist: Alejandro Salazar MDGFR/1.73 sq M.predicted among non-blacks MDRD (S/P/Bld) [Vol rate/Area]mL/min/{1.73_m2}Normal>60Memorial Health SystemComment on above:Result Comment: These results are not intended for [...] or following therapy that affects renal tubular secretion.Performed By: #### BMP #### [facility] [address] [place] [address] Behavioral Health Therapist: Alejandro Salazar MDGlucose [Mass/Vol]94 mg/kQVtlumu14-64ByrwcUCLA Medical Center, Santa MonicaComment on above:Performed By: #### BMP #### [facility] [address] [place] [address] Behavioral Health Therapist: IBIS Prettyotassium [Moles/Vol]4.2 mmol/LNormal3.7-5.3 Memorial Health SystemComment on above:Result Comment: Specimen hemolysis has exceeded the interference as defined by Denise. Value may be falsely increased. Suggest recollection if clinically indicated.Performed By: #### BMP #### [facility] [address] [place] [address] Behavioral Health Therapist: LELE Prettyodium [Moles/Vol]140 mmol/QDdqvbg163-965SfobaMemorial Health SystemComment on above:Performed By: #### BMP #### [facility] [address] [place] [address] Behavioral Health Therapist: Alejandro Salazar MDUrea nitrogen [Mass/Vol]6 mg/dLNormal6-20Memorial Health SystemComment on above:Performed By: #### BMP #### [facility] [address] [place] [address] Behavioral Health Therapist: Je Prettyclinton [facility] metabolic panelon 24-56-0321Ayinw gap [Moles/Vol]12 mmol/L9 - 16 mmol/LBon Secours Mercy HealthCalcium [Mass/Vol]8.4 mg/dLLow8.6 - 10.4 mg/dLBon Secours Mercy HealthChloride [Moles/Vol]107 mmol/L98 - 107 mmol/LBon Secours Mercy HealthCO2 [Moles/Vol]21 mmol/L20 - 31 mmol/LBon Secours Mercy HealthCreatinine [Mass/Vol]0.7 mg/dL0.6 - 0.9 mg/dLBon Secours [employer].y HealthEst, Glom Filt Rate- PINFBon Wexner Medical CenterComment on above: These results are not intended [...] therapy that affects renal tubular secretion. Glucose [Mass/Vol]94 mg/dL74 - 99 mg/dLBon Mountain Community Medical Servicesy [facility] HospitalInterpretation and review of laboratory resultsAbnormalSentara Careplex HospitalPotassium [Moles/Vol]4.2 mmol/L3.7 - 5.3 mmol/LBon Wexner Medical CenterComment on above: Specimen hemolysis has exceeded the interference as defined by Denise. Value may be falsely increased. Suggest recollection if clinically indicated. Sodium [Moles/Vol]140 mmol/L136 - 145 mmol/LBon Wexner Medical CenterUrea nitrogen [Mass/Vol]6 mg/dL6 - 20 mg/dLBon De Smet Memorial HospitalCBC with Auto Differentialon 28-65-6875Epohmkwpn (Bld) [#/Vol]0.03 10*3/uL Bon SecWooster Community HospitalBasophils/100 WBC (Bld)1 %0 - 2 %Bon SecWooster Community HospitalEosinophils (Bld) [#/Vol][facility] Medical CenterEosinophils/100 WBC (Bld) 1 %1 - 4 %[facility] SecWooster Community HospitalErythrocyte distribution width (RBC) [Ratio] 12.5 %11.8 - 14.4 %[facility] SecW[facility]oster Community HospitalHematocrit (Bld) [Volume fraction] 36.7 %36.3 - 47.1 %[facility] SecW[facility]oster Community HospitalHemoglobin (Bld) [Mass/Vol]11.8 g/dL Low11.9 - 15.1 g/dLBon SecWooster Community HospitalImmature granulocytes (Bld) [#/Vol] [facility] Medical CenterImmature granulocytes/100 WBC (Bld)0 %0Bon [facility] Medical CenterInterpretation and review of laboratory resultsAbnormalBon SecWooster Community HospitalLymphocytes/100 WBC (Bld)34 %24 - 43 %[facility] Lymphocytes/100 WBC (Bld)1.19 %Bon SecWooster Community HospitalMCH (RBC) [Entitic mass] 27.6 pg25.2 - 33.5 pgBon [facility] HospitalHC (RBC) [Mass/Vol]32.2 g/dL28.4 - 34.8 g/dLBon [facility] HospitalV (RBC) [Entitic vol]85.7 fL82.6 - 102.9 fL [facility] Careplex HospitalMonocytes/100 WBC (Bld)9 %3 - 12 %Bon [facility] CenterMonocytes/100 WBC (Bld)0.3 %Bon [facility] Medical CenterNeutrophils/100 WBC (Bld)55 %36 - 65 %Bon [facility] Medical CenterNucleated RBC/100 WBC (Bld) [Ratio]0 % 0.0 per 100 WBCBon Wexner Medical CenterPlatelet mean volume (Bld) [Entitic vol] 9.1 fL8.1 - 13.5 fLBon Wexner Medical CenterPlatelets (Bld) [#/Vol]217 10*3/uLBon Wexner Medical CenterRBC (Bld) [#/Vol]4.28 10*6/uL3.95 - 5.11 m/uLBon Wexner Medical CenterSegmented neutrophils/100 WBC (Bld)1.96 %Bon [facility] Medical CenterWBC other (Bld) [#/Vol]3.5Bon [facility] Memorial HospitalCBC with Diffon 95-23-0677Zvg. Basophil0.03 k/uLNormal0.00-0.20Memorial Health SystemComment on above:Performed By: #### CDP #### [facility] [address] [place] [address] Behavioral Health Therapist: J Carlos Pretty. Eosinophil<0.38Kxacee4.00-0.44Memorial Health SystemComment on above:Performed By: #### CDP #### [facility] [address] [place], [place] [id number] Behavioral Health Therapist: J Carlos Pretty.Imm.Granulocyte<0.17Aebvsp1.00-0.30Memorial Health SystemComment on above:Performed By: #### CDP #### [address] [address] Behavioral Health Therapist: J Carlos Pretty.Neutrophil (Seg)1.96 k/uLNormal1.50-8.10 [facility] Health SystemComment on above:Performed By: #### CDP #### [address] [address] Behavioral Health Therapist: Alejandro Salazar MDBasophils/100 WBC (Bld)1 %Normal0-2MUCLA Medical Center, Santa MonicaComment on above:Performed By: #### CDP #### [address] [address] Behavioral Health Therapist: Alejandro Salazar MDEosinophils/100 WBC (Bld)1 %Normal1-4Memorial Health SystemComment on above:Performed By: #### CDP #### [address] [address] Behavioral Health Therapist: Alejandro Salazar MDErythrocyte distribution width (RBC) [Ratio]12.5 %Finigy39.8-14.4Memorial Health SystemComment on above:Performed By: #### CDP #### [address] [address] Behavioral Health Therapist: Alejandro Salazar MDHematocrit (Bld) [Volume fraction]36.7 %Normal 36.3-47.1MUCLA Medical Center, Santa MonicaComment on above:Performed By: #### CDP #### [address] [address] Behavioral Health Therapist: Alejandro Salazar MDHemoglobin (Bld) [Mass/Vol]11.8 g/dLLow11.9-15.1 Memorial Health SystemComment on above:Performed By: #### CDP #### [address] [address] Behavioral Health Therapist: Tri Prettyture granulocytes/100 WBC (Bld)0 %Normal0 [facility] Health SystemComment on above:Performed By: #### CDP #### [address] [address] Behavioral Health Therapist: Yanick Prettymphocytes (Bld) [#/Vol]1.19 10*3/uLNormal 1.10-3.70Memorial Health SystemComment on above:Performed By: #### CDP #### [address] [address] Behavioral Health Therapist: Yanick Prettymphocytes/100 WBC (Bld)34 %Evxnil75-08LsxozMemorial Health SystemComment on above:Performed By: #### CDP #### [address] [address] Behavioral Health Therapist: LIANA PrettyCH (RBC) [Entitic mass]27.6 zcVjuglg51.2-33.5 [facility] Health SystemComment on above:Performed By: #### CDP #### [address] [address] Behavioral Health Therapist: LIANA PrettyCHC (RBC) [Mass/Vol]32.2 g/iGDmylpz35.4-34.8 [facility] Health SystemComment on above:Performed By: #### CDP #### [address] [address] Behavioral Health Therapist: LIANA PrettyCV (RBC) [Entitic vol]85.7 qLVlwtkt35.6-102.9 [facility] Health SystemComment on above:Performed By: #### CDP #### [address] [address] Behavioral Health Therapist: LIANA Prettyonocytes (Bld) [#/Vol]0.30 10*3/uLNormal 0.10-1.20Memorial Health SystemComment on above:Performed By: #### CDP #### [address] [address] Behavioral Health Therapist: Alejandro Salazar MDMonocytes/100 WBC (Bld)9 %Normal3-12Memorial Health SystemComment on above:Performed By: #### CDP #### [address] [address] Behavioral Health Therapist: Alejandro Salazar MDNeutrophil (Seg)55 %Hrtrrj09-18ZknlnMemorial Health SystemComment on above:Performed By: #### CDP #### [address] [address] Behavioral Health Therapist: Alejandro Salazar MDNRBC Automated0.0 per 100 WBCNormal0.0Memorial Health SystemComment on above:Performed By: #### CDP #### [address] [address] Behavioral Health Therapist: Maribell Prettyteemma mean volume (Bld) [Entitic vol]9.1 fL Normal8.1-13.5Memorial Health SystemComment on above:Performed By: #### CDP #### [address] [address] Behavioral Health Therapist: IBIS Prettylatelets (Bld) [#/Vol]217 10*3/kRSdxqjs599-506 [facility] Health SystemComment on above:Performed By: #### CDP #### [address] [address] Behavioral Health Therapist: Alejandro Salazar MDRBC (Bld) [#/Vol]4.28 10*6/uLNormal3.95-5.11 [facility] Health SystemComment on above:Performed By: #### CDP #### [place] [address] [place], [place] [id number] Behavioral Health Therapist: FIFI Pretty (d) [#/Vol]3.5 10*3/uLNormal3.5-11.3[facility] Of East Los AngelesComment on above:Performed By: #### CDP #### [facility] [address] [place] [id number] Behavioral Health Therapist: Alejandro Salazar MDFLUORO FOR SURGICAL PROCEDURESon 01-22-2025 FLUORO FOR SURGICAL PROCEDURESRadiology exam is complete. No Radiologist dictation. Please follow up with ordering provider. Final resultNormalMercy Promise Hospital Of East Los AngelesGuidance-- during surgeryon 39-40-1555Ppqrzjnxg exam is complete. No Radiologist dictation. Please follow up with ordering provider. MHPN RIS CONSOLIDATEDLactic Acidon 20-62-7987Pmyoje Acid, Whole Blood1 mmol/L0.7 - 2.1 mmol/LBon De Smet Memorial HospitalLactic Acid,Whole Bl1.0 mmol/LNormal0.7-2.1[facility] Of East Los AngelesComment on above: Performed By: #### LACTIC #### [facility] [address] [place] [address] Behavioral Health Therapist: IBIS PrettyREVIOUS SPECIMENon 37-61-2805Ksv [facility] Cultureon 57-88-0286Lnpwtowg identified Cx Nom (U)ORGANISM: Escherichia coli (O:ESCCOL) [place] Count >100,000 Aerobic ANASTASIA Charge (NMIC56) SUSCEPTIBILITY ORGANISM: O:ESCCOL ANTIBIOTIC INTERPRETATION ANASTASIA Amikacin S <16 Amoxacillin/K Clavulanate S <8 Ampicillin S <8 Ampicillin/Sulbactam S <4 Aztreonam S <4 Cefazolin S <2 Cefepime S <2 Ceftazidime S <1 Ceftazidime/Avibactam S <4 Ceftolozane/Tazobactam S <2 Ceftriaxone S <1 Cefuroxime S <4 Ciprofloxacin S <0.25 Ertapenem S <0.5 Gentamicin S <2 Levofloxacin S <0.5 Meropenem S <1 Meropenem/Vaborbactam S <2 Nitrofurantoin S <32 Piperacillin/Tazobactam S <8 Tetracycline S <4 Tigecycline S <2 Tobramycin S <2 Trimethoprim/Sulfamethoxazole S <0.5 S = SUSCEPTIBLE I = [...] RESISTANT TO ALL B-LACTAM DRUGS. PERFORMED BY: [place] [address] PATHOLOGIST COMPOSITE SCIENCE TEACHER DAVID TIERNEY M.D.[facility] Physician GroupComment on above: Performed By: #### CUU #### [place] [address] USAFL VOIDING URETHROCYSTOGRAM S AND Ion 31-00-8402VY VOIDING URETHROCYSTOGRAM S AND IEXAMINATION: VOIDING CYSTO URETHROGRAM 01/17/2025 7:55 am COMPARISON: None. HISTORY: ORDERING SYSTEM PROVIDED HISTORY: VUR (vesicoureteric reflux) TECHNOLOGIST PROVIDED HISTORY: Is the patient ?->No Reason for Exam: frequent UTI, kidney stones FLUOROSCOPY DOSE AND TYPE: Radiation Exposure Index: DAP 184.99wEkwn9, FINDINGS: 600 mL of Cystografin was instilled [...] Signed by: Casey Sharma MD 01/17/25 Final resultNoBarberton Citizens HospitalFL VOIDING URETHROCYSTOGRAM S&Ion . No evidence for vesicoureteric reflux. 2. Small postvoid residual. [facility] CONSOLIDATEDEXAMINATION: VOIDING CYSTO URETHROGRAM 01/17/2025 7:55 am COMPARISON: None. HISTORY: ORDERING SYSTEM PROVIDED HISTORY: VUR (vesicoureteric reflux) TECHNOLOGIST PROVIDED HISTORY: Is the patient ?->No Reason for Exam: frequent UTI, kidney stones FLUOROSCOPY DOSE AND TYPE: Radiation Exposure Index: DAP 184.08rVbqk6, FINDINGS: 600 mL of Cystografin was instilled [...] the urethra. There is small postvoid residual. [facility] Casey Moore MD - 01/17/2025 EXAMINATION: VOIDING CYSTO URETHROGRAM 01/17/2025 7:55 am COMPARISON: None. HISTORY: ORDERING SYSTEM PROVIDED HISTORY: VUR (vesicoureteric reflux) TECHNOLOGIST PROVIDED HISTORY: Is the patient ?->No Reason for Exam: frequent UTI, kidney stones FLUOROSCOPY DOSE AND TYPE: Radiation Exposure Index: DAP 184.40gBcfn5, FINDINGS: 600 mL of Cystografin was instilled [...] for vesicoureteric reflux. 2. Small postvoid residual. [facility] Portsmouthiology Study observation (narrative)[facility] HealthFL VOIDING URETHROCYSTOGRAM S&IOrdered By: Casey Sharma on 40-62-2959[employer] Work Phone: NM KIDNEY W FLOW AND FUNCTION W PHARMACOLOGICAL INTERVENTIONon 44-95-2291DU KIDNEY W FLOW AND FUNCTION W PHARMACOLOGICAL INTERVENTIONEXAMINATION: NM KIDNEY W FLOW AND FUNCTION W [...] Signed by: Glen Perez MD 01/16/25 Final resultNormalMercy Forrest General HospitalUrine Cultureon 35-94-4300Rpnqiowg identified Cx Nom (U)30,000 colonies/ml mixed bacterial skin contaminants 2 Days PERFORMED BY: [place] [address] PATHOLOGIST COMPOSITE SCIENCE TEACHER DAVID TIERNEY M.D.NormalThe [facility] Care Physician GroupComment on above: Performed By: #### CUU #### [place] [address] USAUrine cultureOrdered By: Domingo Snyder on 88-86-4499Lwayeuko identified Cx Nom (U)Urine cultureRegional Medical CenterCholesterol [Mass/volume] in Serum or PlasmaOrdered By: Arnulfo Aviles on 04-09-2024 Cholesterol [Mass/Vol]150 mg/uC394-859FagrwgolnRegional Medical CenterComment on above:Chol less than 200 mg/dl low riskChol 201-239 mg/dl borderline riskChol 240 mg/dl and greater high riskCholesterol in LDL Calc [Mass/Vol]Ordered By: Arnulfo Aviles on 01-39-1022Rypvtdgckpy in LDL [Mass/Vol]90 mg/dL0-100 Regional Medical CenterComment on above:LDL ATP III CLASSIFICATIONLDL less than 100 mg/dL OptimalLDL 100-129 mg/dL Near or above vbgqafkULN294-891 mg/dL Borderline highLDL 160-189 mg/dL HighLDL greater than 189 mg/dL Very high Cholesterol in VLDL Calc [Mass/Vol]Ordered By: Arnulfo Aviles on 84-88-7360Ppvykeefygt in VLDL [Mass/Vol]16 mg/dLPomerene Hospitalerum or plasma high density lipoprotein (HDL) cholesterol measurement Ordered By: Arnulfo Aviles on 61-81-5568Counckqbaii in HDL [Mass/Vol]44 mg/nR74-96IcqpfqzloRegional Medical CenterComment on above:HDL CHOL ATP-III CLASSIFICATION Cardiovascular RiskHDL > or equal to 60 mg/dL LOWHDL < 40 mg/dL HIGHSerum or plasma total cholesterol/high density lipoprotein (HDL) cholesterol mass ratOrdered By: Arnulfo Aviles on 04-09-2024 Cholesterol.total/Cholesterol in HDL [Mass ratio]3.4 {ratio}<5.0Regional Medical CenterThyrotropin [Units/volume] in Serum or PlasmaOrdered By: Arnulfo Aviles on 17-05-3335KRF Qn2.01 m[IU]/L0.45-5.33Regional Medical CenterTriglyceride [Mass/volume] in Serum or PlasmaOrdered By: Arnulfo Aviles on 60-14-6065Ctwhqjsspako [Mass/Vol]82 mg/dL0-149Regional Medical CenterComment on above:TRIG ATP III CLASSIFICATIONTRIG less than 150 mg/dL NormalTRIG 150-199 mg/dL Borderline highTRIG 200-500 mg/dL High TRIG greater than 500 mg/dL Very highStandard traceable to the Center for Disease Conrtrol and Prevention (CDC) test method.Vitamin D+Metabolites [Mass/volume] in Serum or PlasmaOrdered By: Arnulfo Aviles on 04-09-2024 Vitamin D+Metabolites [Mass/Vol]26.2 ng/xH26-807GuxssercbRegional Medical CenterComment on above:VITAMIN D STATUS 25(OH)VITAMIN D RANGE (ng/mL) Deficient <20 Insufficient 20 to <12Kayvfzivsp21 to 100Reference: José Miguel MF,Jennifer NC, Mady MARTI, et al. Evaluation,treatment, and prevention of vitamin D deficiency; an Endocrine Society clinical practice guideline. JCEM. 2010; 96 (7):1911-30.MM POST BIOPSY LTon 77-16-4580FyrC[place] [id number] Mammography Report Signed Patient: DIANA BARRIGA MR#: [id number] : 1990 Acct:[id number] Age/Sex: 33 / F ADM Date: 12/29/23 Loc: US Attending Dr: Jefferson Gibbs D.O. Ordering Physician: Jefferson Gibbs D.O. Results: Date of Service: 12/29/23 Follow Up: Procedure(s): MM post biopsy LT Accession Number(s): [id number] cc: Jefferson Gibbs D.O.; oDmingo Snyder M.D. Patient Name: DIANA BARRIGA MR#: [id number] : 1990 Exam Date: 12/29/2023 Ordering Doctor: [...] densities subcutaneous edema. Nipple piercing Dictated by: Glen Perez MD on 12/29/2023 at 08:56 Approved by: Glen Perez MD on 12/29/2023 at 08:57 Dictated By: Glen Perez M.D. Signed By: 12/29/2357 DD/ 6 TD/TT: Research Quality Assurance Specialist:JOCELYNHRadiologJose D gupta MD - 12/29/2023 [place] [address] Mammography Report Signed Patient: DIANA BARRIGA MR#: [id number] : 1990 Acct:[id number] Age/Sex: 33 / F ADM Date: 12/29/23 Loc: US Attending Dr: Jefferson Gibbs D.O. Ordering Physician: Jefferson Gibbs D.O. Results: Date of Service: 12/29/23 Follow Up: Procedure(s): MM post biopsy LT Accession Number(s): [id number] cc: Jefferson Gibbs D.O.; Domingo Snyder M.D. Patient Name: DIANA BARRIGA MR#: [id number] : 1990 Exam Date: 12/29/2023 Ordering Doctor: [...] densities subcutaneous edema. Nipple piercing Dictated by: Glen Perez MD on 12/29/2023 at 08:56 Approved by: Glen Perez MD on 12/29/2023 at 08:57 Dictated By: Glen Perez M.D. Signed By: 12/29/23 0857 DD/ TD/TT: Research Quality Assurance Specialist: [place] HealthcareRadiology Study observation (narrative)NOMS HealthcareMM POST BIOPSY LTOrdered By: Radiologist Radiology on 87-57-4002GKTE Healthcare Work Phone: US GUIDED BREAST BIOPSY LTon 47-14-5463Wkr [place] [address] Ultrasound Report Signed Patient: DIANA BARRIGA MR#: [id number] : 1990 Acct:[id number] Age/Sex: 33 / F ADM Date: 12/29/23 Loc: US Attending Dr: Jefferson Gibbs D.O. Ordering Physician: Jefferson Gibbs D.O. Date of Service: 12/29/23 Procedure(s): US breast vac bx w/ clip LT Accession Number(s): [id number] cc: Jefferson Gibbs D.O.; Domingo Snyder M.D. [address] [id number] Patient Name: DIANA BARRIGA MRN: [facility]:[id number] date: 1990 Sex: F Assigned Patient Location: US Current Patient Location: Accession/Order Number: [id number] Exam Date: 12/29/2023 07:20 Report Date: 12/29/2023 [...] results are pending. Electronically authenticated by: GLEN PEREZ Date: 12/29/2023 08:24 Dictated By: Glen Perez M.D. Signed By: 12/29/23826 DD/ 3 TD/TT: Research Quality Assurance Specialist:TBHRadiology, Radiologist, - 12/29/2023 The [place] [id number] Ultrasound Report Signed Patient: DIANA BARRIGA MR#: [id number] : 1990 Acct:[id number] Age/Sex: 33 / F ADM Date: 12/29/23 Loc: US Attending Dr: Jefferson Gibbs D.O. Ordering Physician: Jefferson Gibbs D.O. Date of Service: 12/29/23 Procedure(s): US breast vac bx w/ clip LT Accession Number(s): [id number] cc: Jefferson Gibbs D.O.; Domingo Snyder M.D. [address] [place] [address] Patient Name: DIANA BARRIGA MRN: [id number] date: 1990 Sex: F Assigned Patient Location: US Current Patient Location: US Accession/Order Number: [id number] Exam Date: 12/29/2023 07:20 Report Date: 12/29/2023 [...] results are pending. Electronically authenticated by: GLEN PEREZ Date: 12/29/2023 08:24 Dictated By: Glen Perez M.D. Signed By: 12/29/23826 DD/ 3 TD/TT: Research Quality Assurance Specialist: [place] HealthcareRadiology Study observation (narrative)[place] HealthcareUS GUIDED BREAST BIOPSY LTOrdered By: Radiologist Radiology on 23-14-4444JTVT [employer] Work Phone: mm TOMOSYNTHESIS DIAGNOSTIC BIon 41-60-8085[place]la[place] [address] Mammography Report Signed Patient: DIANA BARRIGA MR#: [id number] : 1990 Acct:[id number] Age/Sex: 33 / F ADM Date: 12/23/23 Loc: MAMMO Attending Dr: Jefferson Gibbs D.O. Ordering Physician: Tmaiko Chacon Results: Date of Service: 12/23/23 Follow Up: Procedure(s): MM tomosynthesis diagnostic BI Accession Number(s): [id number] cc: Tamiko Chacon; Domingo Snyder M.D. Patient Name: DIANA BARRIGA MR#: [id number] : 1990 Exam Date: 12/23/2023 Ordering Doctor: [...] Treatments None Family Cancers None LOCATION: [facility] BREAST COMPOSITION: Extremely dense, which lowers [...] PALPABLE LUMP SHOULD BE BIOPSIED. Dictated by: Glen Perez MD on 12/23/2023 at 13:42 Approved by: Glen Perez MD on 12/23/2023 at 13:46 Dictated By: Glen Perez M.D. Signed By: 12/23/23 1348 DD/ 1347 TD/TT: Research Quality Assurance Specialist:TBHRadiology, Radiologist, - 12/23/2023 [place] [address] Mammography Report Signed Patient: DIANA BARRIGA MR#: [id number] : 1990 Acct:[id number] Age/Sex: 33 / F ADM Date: 12/23/23 Loc: MAMMO Attending Dr: Jefferson Gibbs D.O. Ordering Physician: Tamiko Chacon Results: Date of Service: 12/23/23 Follow Up: Procedure(s): MM tomosynthesis diagnostic BI Accession Number(s): [id number] cc: Tamiko Chacon; Domingo Snyder M.D. Patient Name: DIANA BARRIGA MR#: [id number] : 1990 Exam Date: 12/23/2023 Ordering Doctor: [...] Treatments None Family Cancers None LOCATION: [facility] BREAST COMPOSITION: Extremely dense, which lowers [...] PALPABLE LUMP SHOULD BE BIOPSIED. Dictated by: Glen Perez MD on 12/23/2023 at 13:42 Approved by: Glen Perez MD on 12/23/2023 at 13:46 Dictated By: Glen Perez M.D. Signed By: 12/23/23 1348 DD/ 1347 TD/TT: Research Quality Assurance Specialist: [place] [employer] Panel InformationOrdered By: Radiologist Radiology on 09-24-2216VCJN [employer] Work Phone: No Panel Informationon 76-09-6994Pqwlbnfpe Study observation (narrative)[employer] BREAST LT LIMITEDon 97-01-2826OblNew [place] [address] Ultrasound Report Signed Patient: DIANA BARRIGA MR#: [id number] : 1990 Acct:[id number] Age/Sex: 33 / F ADM Date: 12/23/23 Loc: MAMMO Attending Dr: Jefferson Gibbs D.O. Ordering Physician: Jefferson Gibbs D.O. Date of Service: 12/23/23 Procedure(s): US breast LT limited Accession Number(s): [id number] cc: Jefferson Gibbs D.O.; Domingo Snyder M.D. Patient Name: DIANA BARRIGA MR#: [id number] : 1990 Exam Date: 12/23/2023 Ordering Doctor: [...] Treatments None Family Cancers None LOCATION: [facility] BREAST COMPOSITION: Extremely dense, which lowers [...] PALPABLE LUMP SHOULD BE BIOPSIED. Dictated by: Glen Perez MD on 12/23/2023 at 13:42 Approved by: Glen Perze MD on 12/23/2023 at 13:46 Dictated By: Glen Perez M.D. Signed By: 12/23/23 1348 DD/ 1347 TD/TT: Research Quality Assurance Specialist:TBHRadiology, Radiologist, - 12/23/2023 [place] [address] Ultrasound Report Signed Patient: DIANA BARRIGA MR#: [id number] : 1990 Acct:[id number] Age/Sex: 33 / F ADM Date: 12/23/23 Loc: MAMMO Attending Dr: Jefferson Gibbs D.O. Ordering Physician: Jefferson Gibbs D.O. Date of Service: 12/23/23 Procedure(s): US breast LT limited Accession Number(s): [id number] cc: Jefferson Gibbs D.O.; Domingo Snyder M.D. Patient Name: DIANA BARRIGA MR#: [id number] : 1990 Exam Date: 12/23/2023 Ordering Doctor: [...] Treatments None Family Cancers None LOCATION: [facility] BREAST COMPOSITION: Extremely dense, which lowers [...] PALPABLE LUMP SHOULD BE BIOPSIED. Dictated by: Glen Perez MD on 12/23/2023 at 13:42 Approved by: Glen Perez MD on 12/23/2023 at 13:46 Dictated By: Glen Perez M.D. Signed By: 12/23/23 1348 DD/ 46 TD/TT: Research Quality Assurance Specialist: [place] [facility] AUTO DIFFon 38-11-9800XFHD #0.1 103/ulNormal0.0-0.1The [facility] HospitalComment on above:Performed By: #### URIC 24 #### [facility] [address] [place] [address] Dr. Ramses DumasBasophils/100 WBC (Bld)0.5 %Normal0.2-2.0[facility] Comment on above:Performed By: #### URIC 24 #### [facility] [address] [place] [address] Dr. Ramses Hoskins #0.0 103/ulNormal0.0-0.7The [facility] HospitalComment on above: Performed By: #### URIC 24 #### [facility] [address] [place] [address] Dr. Ramses Penaosinophils/100 WBC (Bld)0.4 %Critically low0.9-7.0The [facility] HospitalComment on above:Performed By: #### URIC 24 #### [facility] [address] [place] [address] Dr. Ramses Penarythrocyte distribution width (RBC) [Ratio]13.7 %Fkmhlk24.0-15.0 The [facility] HospitalComment on above:Performed By: #### URIC 24 #### [facility] [address] [place] [address] Dr. Ramses DumasHematocrit (Bld) [Volume fraction]45.1 %Qavftm13.0-48.0The [facility] HospitalComment on above:Performed By: #### URIC 24 #### [facility] [address] [place] [address] Dr. Ramses DumasHemoglobin (Bld) [Mass/Vol]14.3 g/wERccbde98.0-16.0The [facility] HospitalComment on above:Performed By: #### URIC 24 #### [facility] [address] [place] [address] Dr. Ramses Rowe #0.02 10e3/ulNormal0.00-0.03The [facility] HospitalComment on above:Performed By: #### URIC 24 #### [facility] [address] [place] [address] Dr. Ramses Rowe %0.2 %Normal0.0-0.5The [facility] HospitalComment on above: Performed By: #### URIC 24 #### [facility] [address] [place] [address] Dr. Ramses Ramos #2.5 103/ulNormal1.2-3.8The [facility] HospitalComment on above:Performed By: #### URIC 24 #### [facility] [address] [place] [address] Dr. Ramses Bejaranohocytes/100 WBC (Bld)26.4 %Zesyel41.5-60.0The [facility] HospitalComment on above:Performed By: #### URIC 24 #### [facility] [address] [place] [address] Dr. Ramses Santos DIFF REQNONormalThe [facility] HospitalComment on above: Performed By: #### URIC 24 #### [facility] [address] [place] [address] Dr. Ramses Garcia (RBC) [Entitic mass]25.6 pgCritically low26.7-34.0The [facility] HospitalComment on above:Performed By: #### URIC 24 #### [facility] [address] [place] [address] Dr. Ramses Parisi (RBC) [Mass/Vol]31.7 g/bCYflsst62.9-35.2The [facility] HospitalComment on above:Performed By: #### URIC 24 #### [facility] [address] [place] [address] Dr. Ramses Parisi (RBC) [Entitic vol]80.7 fLCritically low81.0-99.0The [facility] HospitalComment on above:Performed By: #### URIC 24 #### [facility] [address] [place] [address] Dr. Ramses Sharif #0.7 103/ulNormal0.3-0.8The [facility] HospitalCommclaren [place] on above:Performed By: #### URIC 24 #### [facility] [address] [place] [address] Dr. Ramses Cunhaocytes/100 WBC (Bld)7.6 %Normal1.7-12.0[facility] Comment on above:Performed By: #### URIC 24 #### [facility] [address] [place] [address] Dr. Ramses Silva #6.1 103/ulNormal1.4-6.5The [facility] HospitalComment on above:Performed By: #### URIC 24 #### [facility] [address] [place] [address] Dr. Ramses Shelbyophils/100 WBC (Bld)64.9 %Czyioa63.0-75.0The [facility] HospitalComment on above:Performed By: #### URIC 24 #### [facility] [address] [place] [address] Dr. Ramses Whaleylet mean volume (Bld) [Entitic vol]11.0 fLNormal9.5-13.5The [facility] HospitalComment on above:Performed By: #### URIC 24 #### [facility] [address] [place] [address] Dr. Ramses DumasPLT270 103/gxFavmsa339-656Xzl [facility] HospitalComment on above: Performed By: #### URIC 24 #### [facility] [address] [place] [address] Dr. Ramses DumasRBC5.59 106/ulCritically high4.20-5.40[facility] Comment on above:Performed By: #### URIC 24 #### [facility] [address] [place] [address] Dr. Ramses DumasWBC9.4 103/ulNormal4.0-11.0[facility] HospitalComment on above: Performed By: #### URIC 24 #### [facility] [address] [place] [address] Dr. Ramses Berrios ABD/PELV W CONon 42-92-1255BQ ABD/PELV W CONEXAM: CT ABD/PELV W CON TECHNIQUE: Axial CT [...] inflammation. Abdominal wall: Small fat-containing umbilical hernia. IMPRESSION: No acute abdominal pathology. No acute inflammatory process. No obstructing urinary tract stone. No evidence for bowel obstruction. Electronically authenticated by: FARTUN NOVOA Date: 2023-02-16 18:21[facility] URINE PROFILEon 06-68-2432Kmzqghcnw Ql (U)SMALLAbnormal NEGATIVEAkron Children'S HospitalComment on above:Performed By: #### CMP #### [facility] [address] [place] [address] Dr. Ramses Stafford (U)CLEARNormalCLEARBrecksville VA / [facility] on above: Performed By: #### CMP #### [facility] [address] [address] [address] Ramses Francis (U)YELLOWNormalYELLOWBrecksville VA / [facility]ille Hospital on above: Performed By: #### CMP #### [facility] [address] [place] [address] Dr. Ramses Lizarraga micrscopic examination will be performed if indicated. NormalAkron Children'S HospitalComment on above:Performed By: #### CMP #### [facility] [address] [place] [address] Dr. Ramses DumasGlucose Ql (U)NegativeNormalNEGATIVEAkron Children'S HospitalComment on above:Performed By: #### CMP #### [facility] [address] [place] [address] Dr. Ramses DumasHemoglobin Ql (U)NegativeNormalNEGWadsworth-Rittman Hospital Comment on above:Performed By: #### CMP #### [facility] [address] [place] [address] Dr. Ramses DumasKetones Ql (U)40 mg/dlAbnormalNEGWadsworth-Rittman Hospital Comment on above:Performed By: #### CMP #### [facility] [address] [place] [address] Dr. Ramses DumasLEUKOCYTESSMALLAbnormalNEGATIVEAkron Children'S HospitalComment on above:Performed By: #### CMP #### [facility] [address] [place] [address] Dr. Ramses DumasNitrite Ql (U)NegativeNormalNEGWadsworth-Rittman HospitalComment on above:Performed By: #### CMP #### [facility] [address] [place] [address] Dr. Ramses DumaspH (U)7.0 [pH]Normal5-9[facility] HospitalComment on above: Performed By: #### CMP #### [facility] [address] [place] [address] Dr. Ramses DumasProtein (U) [Mass/Vol]30 mg/dLAbnormalNEGATIVE/ TRACEThe [facility] HospitalComment on above:Performed By: #### CMP #### [facility] [address] [place] [address] Dr. Ramses DumasSPEC GRAVITY1.988Dzoprl7.005-<=1.025[facility] HospitalComment on above:Performed By: #### CMP #### [facility] [address] [place] [address] Dr. Ramses Carrasco MICRO INDINDICATEDNormalThe [facility] HospitalComment on above: Performed By: #### CMP #### [facility] [address] [place] [address] Dr. Ramses Wright Qn (U)4 {Lucero'U}/dLAbnormal0.2 - 1.0The [facility] HospitalComment on above:Performed By: #### CMP #### [facility] [address] [place] [address] Dr. Ramses DumasLIPASEon 50-16-3519Bzxlum [Catalytic activity/Vol]67.0 U/L Critically low73.0-393.0The [facility] HospitalCommclaren [place] on above:Performed By: #### URCX #### [facility] [address] [place] [address] Dr. Ramses Pisano PROFILEon 01-07-6716Trkpbmb [Mass/Vol]4.1 g/dLNormal3.4-5.0 The [facility] HospitalCommclaren [place] on above:Performed By: #### URCX #### [facility] [address] [place] [address] Dr. Ramses DumasAlbumin/Globulin [Mass ratio]1.0 {ratio}NormalThe [facility] HospitalCommclaren [place] on above:Performed By: #### URCX #### [facility] [address] [place] [address] Dr. Ramses Conteh [Catalytic activity/Vol]85 U/XGaudyi00-404Bya [facility] HospitalCommclaren [place] on above:Performed By: #### URCX #### [facility] [address] [place] [address] Dr. Ramses Perez [Catalytic activity/Vol]61 U/LCritically ovxz62-80Xgq [facility] HospitalCommclaren [facility] [place] on above:Performed By: #### URCX #### [facility] [address] [place] [address] Dr. Ramses DumasAST [Catalytic activity/Vol]43 U/LCritically kaku65-65Ctp [facility]oula HospitalComment on above:Performed By: #### URCX #### [facility] [address] [address] [address] Ramses MillsI, CONJUGATED0.1 mg/dLNormal0.0-0.2The [facility] Comment on above:Performed By: #### URCX #### [facility] [address] [place] [address] Dr. Ramses Millsirubin [Mass/Vol]0.7 mg/dLNormal0.2-1.0[facility] Comment on above:Performed By: #### URCX #### [facility] [address] [place] [address] Dr. Ramses DumasGlobulin (S) [Mass/Vol]4.2 g/dLNormalThe [facility] HospitalComment on above:Performed By: #### URCX #### [facility] [address] [place] [address] Dr. Ramses DumasProtein [Mass/Vol]8.3 g/dLCritically high6.4-8.2The [facility] HospitalComment on above:Performed By: #### URCX #### [facility] [address] [place] [address] Dr. Ramses DumasPREGNANCY URon 80-47-0542OOSZLDLLD, QUALNegativeNormalNEGATIVEThe [facility] HospitalComment on above:Performed By: #### CMP #### [facility] [address] [place] [address] Dr. Ramses DumasPROF CHEM 8 (BAS METB)on 12-16-1163Cljrj gap [Moles/Vol]14.2 mmol/LNormalThe [facility] HospitalComment on above:Performed By: #### URCX #### [facility] [address] [place] [address] Dr. Ramses DumasCalcium [Mass/Vol]9.5 mg/dLNormal8.5-10.1[facility] Comment on above:Performed By: #### URCX #### [facility] [address] [place] [address] Dr. Ramses DumasChloride [Moles/Vol]102 mmol/FSndjid50-280Hgi [facility] Comment on above:Performed By: #### URCX #### [facility] [address] [address] [address] Ramses DumasCO2 [Moles/Vol]27.5 mmol/WRxxeiy27.0-32.0The [facility] Comment on above:Performed By: #### URCX #### [facility] [address] [address] [address] Ramses DumasCreatinine [Mass/Vol]0.71 mg/dLNormal0.55-1.02The [facility] HospitalComment on above:Performed By: #### URCX #### [facility] [address] [place] [address] Dr. Pearce ChangEGFR-AF GUAMANIAN>60Normal>=60The [facility] HospitalComment on above:Performed By: #### URCX #### [facility] [address] [place] [address] Dr. Ramses PenaGFR-NON AF GUAMANIAN>60Normal>=60[facility] HospitalComment on above:Performed By: #### URCX #### [facility] [address] [place] [address] Dr. Ramses DumasGlucose [Mass/Vol]90 mg/hSYjzydh52-327AqoAkron Children'S Hospital Comment on above:Performed By: #### URCX #### [facility] [address] [address] [address] Ramses DumasPotassium [Moles/Vol]3.7 mmol/LNormal3.5-5.1[facility] Comment on above:Performed By: #### URCX #### [facility] [address] [address] [address] Ramses DumasSodium [Moles/Vol]140 mmol/WOuyqsu130-130Foq [facility] Comment on above:Performed By: #### URCX #### [facility] [address] [place] [address] Dr. Ramses Coronado nitrogen [Mass/Vol]6.0 mg/dLCritically low7.0-18.0[facility] HospitalComment on above:Performed By: #### URCX #### [facility] [address] [place] [address] Dr. Ramses Coronado nitrogen/Creatinine [Mass ratio]8.5 mg/mgNoAultman Alliance Community HospitalComment on above:Performed By: #### URCX #### [facility] [address] [place] [address] Dr. Ramses Olsen MICROSCOPIC ONLYon 46-82-6265UQVLPCBCJIVO SEENNormalNONE SEENAkron Children'S HospitalComment on above:Performed By: #### URIC 24 #### [facility] [address] [place] [address] Dr. Ramses Mendenhall identified Cx Nom (U)NOT INDICATEDNoAultman Alliance Community HospitalComment on above:Performed By: #### URIC 24 #### [facility] [address] [place] [address] Dr. Ramses Hays SEENNormalNONE SEENAkron Children'S HospitalCommclaren northern [place] on above:Performed By: #### URIC 24 #### [facility] [address] [place] [address] Dr. Ramses Dominguez LM Nom (Urine sed)NONE SEENNormalNONE SEENAkron Children'S HospitalCommclaren northern [place] on above:Performed By: #### URIC 24 #### [facility] [address] [place] [address] Dr. Pearce ChangEpithelial cells LM Ql (Urine sed)FEWAbnormalNONE SEEN /RAREThe [facility] HospitalComment on above:Performed By: #### URIC 24 #### [facility] [address] [place] [address] Dr. Ramses AlcarazLAbnormalNONE SEENAkron Children'S HospitalComment on above:Performed By: #### URIC 24 #### [facility] [address] [place] [address] Dr. Ramses Cooper SEENAbnormal0-2[facility] on above: Performed By: #### URIC 24 #### [facility] [address] [place] [address] Dr. Ramses DumasWBC0-2AbnormalNONE SEENAkron Children'S HospitalCommclaren [place] on above: Performed By: #### URIC 24 #### [facility] [address] [place] [address] Dr. Ramses Andrade ACOG PANEL 2: 30 to 65on 02-10-2023..NormalAkron Children'S HospitalComment on above:Result Comment: Performed at: WBPerformed By: #### URCX #### [facility] [address] [place] [address] Dr. Ramses Gonzalez Gdln ACOG Zjjtgwn56-05EpypeuQvuAultman Alliance Community HospitalCommclaren [place] on above:Performed By: #### URCX #### [facility] [address] [place] [address] Dr. Ramses DumasDIAGNOSIS:CommentAshtabula County Medical Center on above: Result Comment: NEGATIVE FOR INTRAEPITHELIAL LESION OR MALIGNANCY. REACTIVE CELLULAR CHANGES AND/OR REPAIR ARE PRESENT. Performed at: WBPerformed By: #### URCX #### [facility] [address] [place] [address] Dr. Pearce ChangElectronically signed by:[facility] Comment on above:Result Comment: Capri Boston MD, Pathologist Performed at: WBPerformed By: #### URCX #### [facility] [address] [place] [address] Dr. Ramses Dewitt AptimaNegativeNormalNegativeBrecksville VA / [facility]ille Hospital on above:Result Comment: This nucleic acid amplification test detects fourteen high-risk HPV types (16,18,31,33,35,39,45,51,52,56,58,59,66,68) without differentiation. Performed at: =GPerformed By: #### URCX #### [facility] [address] [place] [address] Dr. Ramses Dewitt Genotype ReflexCommentACMC Healthcare SystemComment on above:Result Comment: Criteria not met, HPV Genotype not performed. Performed at: WBPerformed By: #### URCX #### [facility] [address] [place] [address] Dr. Ramses DumasMethodology:CommentAshtabula County Medical Center on above: Result Comment: This liquid based ThinPrep(R) pap test was screened with the use of an image guided system. Performed at: WBPerformed By: #### URCX #### [facility] [address] [place] [address] Dr. Ramses DumasNote:CommentAshtabula County Medical Center on above:Result Comment: The Pap smear is a screening test designed to aid in the detection of premalignant and malignant conditions of the uterine cervix. It is not a diagnostic procedure and should not be used as the sole means of detecting cervical cancer. Both false-positive and false-negative reports do occur. . Performed at: WBPerformed By: #### URCX #### [facility] [address] [place] [address] Dr. Ramses DumasPerformed by:CommentNoWayne HealthCare Main Campus on above: Result Comment: Cuca Briceno, Driver Starting Gate (ASCP) Performed at: WBPerformed By: #### URCX #### [facility] [address] [place] [address] Dr. Ramses DumasSpecimen adequacy:CommentAshtabula County Medical Center on above:Result Comment: Satisfactory for evaluation. Endocervical and/or squamous metaplastic cells (endocervical component) are present. Performed at: WBPerformed By: #### URCX #### [facility] [address] [place] [address] Dr. Ramses DumasOXALATE 24HR URINEon 70-93-4286Tcrhaoqm, Urine44 mg/LNormal UndefinedThe [facility] on above:Performed By: #### URIC 24 #### [facility] [address] [place] [address] Dr. Ramses DumasOxalates, Urine 24hr44 mg/24 hrCritically high4-31The [facility] HospitalComment on above:Performed By: #### URIC 24 #### [facility] [address] [address] [address] Ramses DumasCITRATE URINE 24HRon 86-54-5661Famnzr Acid, U, 63nb194 mg/24 hr Ubswye119-8725Pnt [facility] HospitalComment on above:Result Comment: This test was developed and its performance characteristics determined by [facility]. It has not been cleared or approved by the Food and Drug Administration.Performed By: #### CITRATU #### [facility] [address] [address] [address] Ramses DumasCitric Acid, Xjfgq770 mg/LNormalUndefinedAkron Children'S Hospital Comment on above:Performed By: #### CITRATU #### [facility] [address] [place] [address] Dr. Ramses DumasMAGNESIUM 24HR URINEon 40-60-9134Qamszdkdh 24hr Qsclk701.0 mg/24 fdJttube07.0-293.0The [facility] HospitalComment on above:Performed By: #### URCX #### [facility] [address] [place] [address] Dr. Ramses Dongnesium UR11.9 mg/dLNormalNot Estab.The [facility] Comment on above:Performed By: #### URCX #### [facility] [address] [place] [address] Dr. Ramses DumasPHOSPHORUS 24HR URINEon 87-24-4521Uywxkwyjzi, Urine81.4 mg/dL NormalNot Estab.The [facility] HospitalComment on above:Performed By: #### BLDCX2 #### [facility] [address] [place] [address] Dr. Ramses DumasPhosphorus, Urine 69ok093 mg/24 tyMfvlws852-4983Siz [facility] HospitalComment on above:Performed By: #### BLDCX2 #### [facility] [address] [place] [address] Dr. Ramses DumasPTH INTACTon 07-00-3677MQZ, Qxihdj80 pg/uYAncgjn45-56Bmf [facility] HospitalComment on above:Performed By: #### URCX #### [facility] [address] [place] [address] Dr. Ramses DumasURIC ACID 24 HR URINEon 16-56-4390Webd Acid, Urine69.9 mg/dL NormalNot Estab.The [facility] HospitalComment on above:Performed By: #### URIC 24 #### [facility] [address] [place] [address] Dr. Ramses DumasUric Acid, Urine 30uv369.0 mg/24 ciSiylpa432.7-902.1The [facility] HospitalComment on above:Performed By: #### URIC 24 #### [facility] [address] [place] [address] Dr. Ramses Umaña 27-72-2225Zxou nitrogen [Mass/Vol]7.0 mg/dLNormal7.0-18.0 The [facility] HospitalComment on above:Performed By: #### CBC #### [facility] [address] [place] [address] Dr. Ramses DumasCALCIUMon 65-80-3001Rlvoofc [Mass/Vol]8.8 mg/dLNormal8.5-10.1The [facility] HospitalComment on above:Performed By: #### CBC #### [facility] [address] [place] [address] Dr. Ramses DumasCALCIUM 24 HR URINEon 49-26-1421VLGA, 24 HR UR295.0 mg/24 hr Dsqysp313.0-300.0The [facility] HospitalComment on above:Performed By: #### BLDCX2 #### [facility] [address] [place] [address] Dr. Ramses Carrasco RTSYTEU43.5 mg/dLCritically high5.1-21.0The [facility] Comment on above:Performed By: #### BLDCX2 #### [facility] [address] [place] [address] Dr. Ramses DumasCHLORIDEon 32-69-7800Rdlyrfex [Moles/Vol]105 mmol/IVptsub77-154 The [facility] Hospitalment on above:Performed By: #### CBC #### [facility] [address] [place] [address] Dr. Ramses DumasCO2on 31-98-8815HQ0 [Moles/Vol]26.4 mmol/HIymboz79.0-32.0The [facility] HospitalComment on above:Performed By: #### CMP #### [facility] [address] [place] [address] Dr. Ramses Kim 24 HR URINEon 07-47-8689TTHJ, 24 HR YB1987.30 mg/24 hr Critically xvvy142.00-1,800.00The [facility] Hospitalment on above:Performed By: #### CVDTBH #### [facility] [address] [place] [address] Dr. Ramses Olsen MSVPW837.73 mg/zVHwbtye67.00-300.00The [facility] on above:Performed By: #### CVDTBH #### [facility] [address] [place] [address] Dr. Ramses DumasCREATININEon 62-54-1086Iewtlvueyg [Mass/Vol]0.70 mg/dLNormal 0.55-1.02[facility] Hospitalment on above:Performed By: #### CMP #### [facility] [address] [place] [address] Dr. Ramses PenaGFR-AF GUAMANIAN>60Normal>=60The [facility] [place] on above:Performed By: #### CMP #### [facility] [address] [place] [address] Dr. Ramses PenaGFR-NON AF GUAMANIAN>60Normal>=60The [facility] on above:Performed By: #### CMP #### [facility] [address] [place] [address] Dr. Ramses Ortiz 44-45-0509Bqyugv [Moles/Vol]139 mmol/TPspveg906-916Kja [facility] on above:Performed By: #### CMP #### [facility] [address] [place] [address] Dr. Ramses DumasPOTASSIUMon 33-15-1860Vmgpcmanv [Moles/Vol]4.0 mmol/LNormal 3.5-5.1The [facility] HospitalComment on above:Performed By: #### CMP #### [facility] [address] [place] [address] Dr. Ramses Rueda 24 HR URINEon 58-86-9319WP, 24 HR UR193 mmol/24 hrNormal 40-220The [facility] HospitalComment on above:Performed By: #### CVDTBH #### [facility] [address] [place] [address] Dr. Ramses Bejaranodium (U) [Moles/Vol]193 mmol/LCritically wuvw40-82Mgo [facility]Commcl[facility] [place] on above:Performed By: #### CVDTBH #### [facility] [address] [place] [address] Dr. Ramses DumasUR TOT VXT5093 ml/24 HRNormalThe [facility] HospitalComment on above:Performed By: #### CVDTBH #### [facility] [address] [place] [address] Dr. Ramses DumasPerformed By: #### BLDCX2 #### [facility] [address] [place] [address] Dr. Ramses DumasURIC ACID SERUMon 29-81-9426Jpwxs [Mass/Vol]5.6 mg/dLNormal 2.6-6.0The [facility] HospitalComment on above:Performed By: #### CMP #### [facility] [address] [place] [address] Dr. Ramses DumasXR KUB 1 VIEWon 35-29-9408OE KUB 1 VIEWEXAMINATION: XR KUB 1 VIEW HISTORY: Kidney stone [...] Electronically authenticated by: JENNIFER GATES Date: 2022-12-15 08:26[facility] AUTO DIFFon [id number] #0.0 103/ulNormal0.0-0.1The [facility] HospitalComment on above:Performed By: #### URCX #### [facility] [address] [place] [address] Dr. Ramses DumasBasophils/100 WBC (Bld)0.7 %Normal0.2-2.0The [facility] Comment on above:Performed By: #### URCX #### [facility] [address] [place] [address] Dr. Ramses Hoskins #0.1 103/ulNormal0.0-0.7The [facility] HospitalComment on above: Performed By: #### URCX #### [facility] [address] [address] [address] Ramses Penaosinophils/100 WBC (Bld)1.9 %Normal0.9-7.0The [facility] Comment on above:Performed By: #### URCX #### [facility] [address] [place] [address] Dr. Ramses Penarythrocyte distribution width (RBC) [Ratio]13.6 %Jfmzdv52.0-15.0 The [facility] HospitalComment on above:Performed By: #### URCX #### [facility] [address] [place] [address] Dr. Ramses DumasHematocrit (Bld) [Volume fraction]37.3 %Esgeer90.0-48.0The [facility] HospitalComment on above:Performed By: #### URCX #### [facility] [address] [place] [address] Dr. Ramses DumasHemoglobin (Bld) [Mass/Vol]12.2 g/fJRhpjkf07.0-16.0The [facility] HospitalComment on above:Performed By: #### URCX #### [facility] [address] [place] [address] Dr. Ramses Rowe #0.02 10e3/ulNormal0.00-0.03The [facility] HospitalComment on above:Performed By: #### URCX #### [facility] [address] [place] [address] Dr. Ramses Rowe %0.3 %Normal0.0-0.5The [facility] HospitalComment on above: Performed By: #### URCX #### [facility] [address] [place] [address] Dr. Ramses Ramos #2.3 103/ulNormal1.2-3.8The [facility] HospitalComment on above:Performed By: #### URCX #### [facility] [address] [place] [address] Dr. Ramses Bejaranohocytes/100 WBC (Bld)39.6 %Rbkpbw64.5-60.0The [facility] HospitalCommclaren [facility] [place] on above:Performed By: #### URCX #### [facility] [address] [place] [address] Dr. Ramses Santos DIFF REQNONormalThe [facility] HospitalComment on above: Performed By: #### URCX #### [facility] [address] [place] [address] Dr. Ramses Parisi (RBC) [Entitic mass]26.4 pgCritically low26.7-34.0The [facility] HospitalComment on above:Performed By: #### URCX #### [facility] [address] [place] [address] Dr. Ramses Parisi (RBC) [Mass/Vol]32.7 g/uEQjonsg61.9-35.2The [facility] HospitalComment on above:Performed By: #### URCX #### [facility] [address] [place] [address] Dr. Yilan ChangMCV (RBC) [Entitic vol]80.7 fLCritically low81.0-99.0The [facility] HospitalComment on above:Performed By: #### URCX #### [facility] [address] [place] [address] Dr. Ramses Sharif #0.5 103/ulNormal0.3-0.8The [facility] HospitalComment on above:Performed By: #### URCX #### [facility] [address] [place] [address] Dr. Ramses Cunhaocytes/100 WBC (Bld)8.0 %Normal1.7-12.0The [facility] Comment on above:Performed By: #### URCX #### [facility] [address] [place] [address] Dr. Ramses Silva #2.9 103/ulNormal1.4-6.5The [facility] HospitalComment on above:Performed By: #### URCX #### [facility] [address] [place] [address] Dr. Ramses Guallpautrophils/100 WBC (Bld)49.5 %Jkpefv82.0-75.0The [facility] HospitalComment on above:Performed By: #### URCX #### [facility] [address] [place] [address] Dr. Ramses Whaleylet mean volume (Bld) [Entitic vol]9.0 fLCritically low 9.5-13.5The [facility] HospitalComment on above:Performed By: #### URCX #### [facility] [address] [place] [address] Dr. Ramses DumasPLT337 103/udEworex043-009Ogg [facility] HospitalComment on above: Performed By: #### URCX #### [facility] [address] [place] [address] Dr. Ramses DumasRBC4.62 106/ulNormal4.20-5.40The [facility] HospitalComment on above:Performed By: #### URCX #### [facility] [address] [place] [address] Dr. Ramses DumasWBC5.9 103/ulNormal4.0-11.0The [facility] HospitalComment on above: Performed By: #### URCX #### [facility] [address] [place] [address] Dr. Ramses DumasPOINT OF CARE GLUCOSEon 71-16-1833Nlmnsgv [Mass/Vol]115 mg/dL Critically ooid81-388Ifu [facility] HospitalComment on above:Performed By: #### CVDTBH #### [facility] [address] [place] [address] Dr. Ramses DumasPREG QUANT HCGon 81-52-1078FUA QUANT<1NormalThe [facility] Comment on above:Performed By: #### CVDTBH #### [facility] [address] [place] [address] Dr. Ramses DumasHCG RANGESEE [facility] HospitalComment on above: Result Comment: 5-50 0.2-1 WEEK 50-500 1-2 WEEKS 100-5,000 2-3 WEEKS 500-10,000 3-4 WEEKS 1,000-50,000 4-5 WEEKS 10,000-100,000 5-6 WEEKS 15,000-200,000 6-8 WEEKS 10,000-100,000 2-3 MONTHSPerformed By: #### CVDTBH #### [facility] [address] [place] [address] Dr. Ramses DumasUS PELVIS AND TRANSVAGon 62-92-4703AI PELVIS AND TRANSVAG Begin Addendum #1 Impression [...] Retroflexed uterus 4.9 cm right ovarian simple cystNormalThe [facility] HospitalCB AUTO DIFFon 56-20-9637OAYR #0.1 103/ulNormal0.0-0.1The [facility] HospitalComment on above: Performed By: #### URCX #### [facility] [address] [address] [address] Ramses DumasBasophils/100 WBC (Bld)0.8 %Normal0.2-2.0[facility] Comment on above:Performed By: #### URCX #### [facility] [address] [place] [address] Dr. Ramses Hoskins #0.1 103/ulNormal0.0-0.7The [facility] HospitalComment on above: Performed By: #### URCX #### [facility] [address] [address] [address] Ramses Penaosinophils/100 WBC (Bld)1.4 %Normal0.9-7.0[facility] Comment on above:Performed By: #### URCX #### [facility] [address] [address] [address] Ramses Penarythrocyte distribution width (RBC) [Ratio]13.4 %Tofddl07.0-15.0 The [facility] HospitalComment on above:Performed By: #### URCX #### [facility] [address] [place] [address] Dr. Ramses DumasHematocrit (Bld) [Volume fraction]38.8 %Bpgajv69.0-48.0The [facility] HospitalComment on above:Performed By: #### URCX #### [facility] [address] [place] [address] Dr. Ramses DumasHemoglobin (Bld) [Mass/Vol]12.7 g/eOCvolvu91.0-16.0The [facility] HospitalComment on above:Performed By: #### URCX #### [facility] [address] [place] [address] Dr. Ramses Rowe #0.01 10e3/ulNormal0.00-0.03The [facility] HospitalComment on above:Performed By: #### URCX #### [facility] [address] [place] [address] Dr. Ramses Rowe %0.1 %Normal0.0-0.5The [facility] HospitalComment on above: Performed By: #### URCX #### [facility] [address] [place] [address] Dr. Ramses Ramos #1.9 103/ulNormal1.2-3.8The [facility] HospitalComment on above:Performed By: #### URCX #### [facility] [address] [place] [address] Dr. Ramses Bejaranohocytes/100 WBC (Bld)26.4 %Ciaeyo87.5-60.0The [facility] HospitalComment on above:Performed By: #### URCX #### [facility] [address] [place] [address] Dr. Ramses HenriquezUAL DIFF REQNONormalThe [facility] HospitalComment on above: Performed By: #### URCX #### [facility] [address] [place] [address] Dr. Ramses Garcia (RBC) [Entitic mass]26.3 pgCritically low26.7-34.0The [facility] HospitalComment on above:Performed By: #### URCX #### [facility] [address] [place] [address] Dr. Ramses Tellez (RBC) [Mass/Vol]32.7 g/tKAvbhzt89.9-35.2The [facility] HospitalComment on above:Performed By: #### URCX #### [facility] [address] [place] [address] Dr. Ramses ParisiV (RBC) [Entitic vol]80.5 fLCritically low81.0-99.0The [facility] HospitalComment on above:Performed By: #### URCX #### [facility] [address] [place] [address] Dr. Ramses Sharif #0.6 103/ulNormal0.3-0.8The [facility] HospitalComment on above:Performed By: #### URCX #### [facility] [address] [place] [address] Dr. Ramses Cunhaocytes/100 WBC (Bld)8.2 %Normal1.7-12.0The [facility] Comment on above:Performed By: #### URCX #### [facility] [address] [place] [address] Dr. Ramses Silva #4.5 103/ulNormal1.4-6.5The [facility] HospitalComment on above:Performed By: #### URCX #### [facility] [address] [place] [address] Dr. Ramses Guallpautrophils/100 WBC (Bld)63.1 %Smyrgu70.0-75.0The [facility] HospitalComment on above:Performed By: #### URCX #### [facility] [address] [place] [address] Dr. Ramses Whaleylet mean volume (Bld) [Entitic vol]8.9 fLCritically low 9.5-13.5The [facility] HospitalComment on above:Performed By: #### URCX #### [facility] [address] [place] [address] Dr. Ramses DumasPLT340 103/rdBnhzvp648-324Soe [facility] HospitalComment on above: Performed By: #### URCX #### [facility] [address] [place] [address] Dr. Ramses DumasRBC4.82 106/ulNormal4.20-5.40The [facility] HospitalComment on above:Performed By: #### URCX #### [facility] [address] [address] [address] Ramses DumasWBC7.1 103/ulNormal4.0-11.0The [facility] HospitalComment on above: Performed By: #### URCX #### [facility] [address] [address] [address] Ramses DumasCovid-19 PCR ([facility]on 87-83-7423SUCM-CoV-2 (COVID-19) RNA FRANCESCA+probe Ql (Unsp spec)Not detectedNormalNOT DETECTEDThe [facility] Comment on above:Result Comment: This test is not yet approved or cleared by the [place] FDA. When there are no FDA-approved or cleared tests available, and other criteria are met, FDA can make tests available under an emergency access mechanism called an Emergency Use Authorization (EUA). The EUA for this test is supported by the [employer] of Health and Human Service's (HHS's) declaration that circumstances exist to justify the emergency use of in vitro diagnostics for the detection and/or diagnosis of the virus that causes COVID- 19. This EUA will remain in effect (meaning [...] of clinical signs and symptoms consistent with SARS-CoV-2.Performed By: #### URCX #### [facility] [address] [address] [address] Ramses DumasFREE T4on 43-29-2027Azdl T4 [Mass/Vol]0.99 ng/dLNormal0.76-1.46 The [facility] HospitalComment on above:Performed By: #### BLDCX2 #### [facility] [address] [place] [address] Dr. Ramses DumasGLYCOHEMOGLOBIN A1Con 01-45-0818ZLD RECOMMENDATIONSEE BELOWNormal The [facility] HospitalComment on above:Result Comment: ADA RECOMMENDED LIMIT 4.0 - 6.0 ADA THERAPEUTIC TARGET < 7.0 ACTION SUGGESTED > 7.0Performed By: #### CVDTBH #### [facility] [address] [place] [address] Dr. Ramses DumasGlucose [Mass/Vol]117 mg/dLNoAultman Alliance Community HospitalComment on above:Performed By: #### CVDTBH #### [facility] [address] [place] [address] Dr. Ramses DumasHbA1c (Bld) [Mass fraction]5.7 %Normal4.5-6.2The [facility] HospitalComment on above:Performed By: #### CVDTBH #### [facility] [address] [place] [address] Dr. Ramses Padgett 77-17-9518SZS Coag (PPP) [Relative time]0.97 {INR} NormalThe [facility] HospitalComment on above:Performed By: #### URIC 24 #### [facility] [address] [place] [address] Dr. Ramses Irvin GUIDELINESSEE BELOWACMC Healthcare SystemComment on above:Result Comment: DESIRED INR: 2.0 - 3.0 CONDITIONS NOT LISTED BELOW 2.5 - 3.5 FOR PROSTHETIC HEART VALVE REPLACEMENT 2.5 - 3.5 RECURRENT THROMBOSIS Performed By: #### URIC 24 #### [facility] [address] [place] [address] Dr. Ramses Manzanares Coag (PPP) [Time]10.3 sNormal9.0-11.6The [facility] Comment on above:Performed By: #### URIC 24 #### [facility] [address] [place] [address] Dr. Ramses Payton 26-18-4848jREP Coag (Bld) [Time]27.7 wMeplry12.3-36.2The [facility] HospitalComment on above:Performed By: #### URIC 24 #### [facility] [address] [place] [address] Dr. Ramses Camilo 19-32-4739PKO7.667 uIU/mLNormal0.358-3.740The [facility] HospitalComment on above:Performed By: #### CVDTBH #### [facility] [address] [place] [address] Dr. Ramses Jackson HCG QUALon 72-80-9431MJSHDWWUZ, QUALNegativeNormalNEGATIVE The [facility] HospitalComment on above:Performed By: #### URIC 24 #### [facility] [address] [place] [address] Dr. Ramses DuamsCovid-19 PCR ([facility])on 08-14-8282WQIZ-CoV-2 (COVID-19) RNA FRANCESCA+probe Ql (Unsp spec)Not detectedNormalNOT DETECTEDThe [facility] Comment on above:Result Comment: This test is not yet approved or cleared by the [place] FDA. When there are no FDA-approved or cleared tests available, and other criteria are met, FDA can make tests available under an emergency access mechanism called an Emergency Use Authorization (EUA). The EUA for this test is supported by the [place] of Health and Human Service's (HHS's) declaration that circumstances exist to justify the emergency use of in vitro diagnostics for the detection and/or diagnosis of the virus that causes COVID- 19. This EUA will remain in effect (meaning [...] of clinical signs and symptoms consistent with SARS-CoV-2.Performed By: #### CVDTBH #### [facility] [address] [place] [address] Dr. Ramses Lemus AUTO DIFFon 71-68-7488BHXB #0.1 103/ulNormal0.0-0.1The [facility] HospitalComment on above:Performed By: #### BLDCX2 #### [facility] [address] [place] [address] Dr. Ramses DumasBasophils/100 WBC (Bld)0.7 %Normal0.2-2.0The [facility] Comment on above:Performed By: #### BLDCX2 #### [facility] [address] [place] [address] Dr. Ramses Hoskins #0.2 103/ulNormal0.0-0.7The [facility] HospitalComment on above: Performed By: #### BLDCX2 #### [facility] [address] [place] [address] Dr. Ramses Penaosinophils/100 WBC (Bld)2.2 %Normal0.9-7.0The [facility] Comment on above:Performed By: #### BLDCX2 #### [facility] [address] [place] [address] Dr. Ramses Penarythrocyte distribution width (RBC) [Ratio]13.9 %Aqysnr99.0-15.0 The [facility] HospitalComment on above:Performed By: #### BLDCX2 #### [facility] [address] [place] [address] Dr. Ramses DumasHematocrit (Bld) [Volume fraction]38.8 %Guohsk41.0-48.0The [facility] HospitalComment on above:Performed By: #### BLDCX2 #### [facility] [address] [place] [address] Dr. Ramses DumasHemoglobin (Bld) [Mass/Vol]12.6 g/uKHtqgyd30.0-16.0The [facility] HospitalComment on above:Performed By: #### BLDCX2 #### [facility] [address] [place] [address] Dr. Ramses Rowe #0.03 10e3/ulNormal0.00-0.03The [facility] HospitalComment on above:Performed By: #### BLDCX2 #### [facility] [address] [place] [address] Dr. Ramses Rowe %0.3 %Normal0.0-0.5The [facility] HospitalComment on above: Performed By: #### BLDCX2 #### [facility] [address] [address] [address] Ramses Ramos #2.3 103/ulNormal1.2-3.8The [facility] HospitalComment on above:Performed By: #### BLDCX2 #### [facility] [address] [place] [address] Dr. Ramses Phelpsmphocytes/100 WBC (Bld)21.3 %Znelkn52.5-60.0The [facility] HospitalComment on above:Performed By: #### BLDCX2 #### [facility] [address] [place] [address] Dr. Ramses Santos DIFF REQNONormalThe [facility] HospitalComment on above: Performed By: #### BLDCX2 #### [facility] [address] [place] [address] Dr. Ramses Parisi (RBC) [Entitic mass]26.4 pgCritically low26.7-34.0The [facility] HospitalComment on above:Performed By: #### BLDCX2 #### [facility] [address] [place] [address] Dr. Ramses Parisi (RBC) [Mass/Vol]32.5 g/vYBndecl94.9-35.2The [facility] on above:Performed By: #### BLDCX2 #### [facility] [address] [place] [address] Dr. Ramses Parisi (RBC) [Entitic vol]81.2 qSIqhbxz61.0-99.0The [facility] HospitalComment on above:Performed By: #### BLDCX2 #### [facility] [address] [place] [address] Dr. Ramses Sharif #0.8 103/ulNormal0.3-0.8The [facility] HospitalComment on above:Performed By: #### BLDCX2 #### [facility] [address] [place] [address] Dr. Ramses Cunhaocytes/100 WBC (Bld)7.4 %Normal1.7-12.0The [facility] Comment on above:Performed By: #### BLDCX2 #### [facility] [address] [place] [address] Dr. Ramses Silva #7.3 103/ulCritically high1.4-6.5ThMemorial [facility] Comment on above:Performed By: #### BLDCX2 #### [facility] [address] [place] [address] Dr. Ramses Guallpautrophils/100 WBC (Bld)68.1 %Buqwmd03.0-75.0The [facility] HospitalComment on above:Performed By: #### BLDCX2 #### [facility] [address] [place] [address] Dr. Ramses Aguirre mean volume (Bld) [Entitic vol]8.8 fLCritically low 9.5-13.5The [facility] HospitalComment on above:Performed By: #### BLDCX2 #### [facility] [address] [place] [address] Dr. Ramses DumasPLT323 103/mrOweiki652-216Eyz [facility] HospitalComment on above: Performed By: #### BLDCX2 #### [facility] [address] [place] [address] Dr. Ramses DumasRBC4.78 106/ulNormal4.20-5.40The [facility] HospitalComment on above:Performed By: #### BLDCX2 #### [facility] [address] [place] [address] Dr. Ramses DumasWBC10.7 103/ulNormal4.0-11.0The [facility] [facility] HospitalComment on above:Performed By: #### BLDCX2 #### [facility] [address] [place] [address] Dr. Ramses Villaseñor URINEon [id number] URINECulture Observations: LIGHT GROWTH OF MIXED GENITAL DAIANA. NO POTENTIAL PATHOGENS SEEN.NormalThe [facility] HospitalComment on above:Performed By: #### URCX #### [facility] [address] [place] [address] Dr. Ramses Kay URINE PROFILEon [id number] Ql (U)NegativeNormal NEGATIVEAkron Children'S HospitalComment on above:Performed By: #### BLDCX2 #### [facility] [address] [address] [address] Ramses Stafford (U)CLOUDYAbnormalCLEARThe [facility] HospitalComment on above:Performed By: #### BLDCX2 #### [facility] [address] [address] [address] Ramses Francis (U)YELLOWNormalYELLOWAkron Children'S HospitalComment on above: Performed By: #### BLDCX2 #### [facility] [address] [place] [address] Dr. Ramses Lizarraga micrscopic examination will be performed if indicated. NormalThe [facility] HospitalComment on above:Performed By: #### BLDCX2 #### [facility] [address] [place] [address] Dr. Ramses DumasGlucose Ql (U)NegativeNormalNEGATIVEAkron Children'S HospitalComment on above:Performed By: #### BLDCX2 #### [facility] [address] [place] [address] Dr. Ramses DumasHemoglobin Ql (U)LARGEAbnormalNEGKettering Health Behavioral Medical Center on above:Performed By: #### BLDCX2 #### [facility] [address] [place] [address] Dr. Ramses DumasKetones Ql (U)NegativeNormalNEGATIVEAkron Children'S HospitalComment on above:Performed By: #### BLDCX2 #### [facility] [address] [place] [address] Dr. Ramses DumasLEUKOCYTESSMALLAbnormalNEGATIVEAkron Children'S HospitalCommclaren [place] on above:Performed By: #### BLDCX2 #### [facility] [address] [place] [address] Dr. Ramses DumasNitrite Ql (U)NegativeNormalNEGATIVEAkron Children'S HospitalComment on above:Performed By: #### BLDCX2 #### [facility] [address] [address] [address] Ramses DumaspH (U)6.0 [pH]Normal5-9The [facility] HospitalComment on above: Performed By: #### BLDCX2 #### [facility] [address] [address] [address] Ramses DumasProtein (U) [Mass/Vol]100 mg/dLAbnormalNEGATIVE/ TRACEThe [facility] HospitalComment on above:Performed By: #### BLDCX2 #### [facility] [address] [place] [address] Dr. Ramses DumasSPEC GRAVITY>=1.533Alegiemz9.005-<=1.025The [facility] Comment on above:Performed By: #### BLDCX2 #### [facility] [address] [place] [address] Dr. Ramses DumasUR MICRO INDINDICATEDNormalThe [facility] HospitalComment on above: Performed By: #### BLDCX2 #### [facility] [address] [place] [address] Dr. Ramses DumasUrobilinogen Qn (U)0.2 {Lucero'U}/dLNormal0.2 - 1.0The [facility] HospitalComment on above:Performed By: #### BLDCX2 #### [facility] [address] [place] [address] Dr. Ramses DumasPREGNANCY URon [id number], QUALNegativeNormalNEGATIVEThe [facility] HospitalComment on above:Performed By: #### BLDCX2 #### [facility] [address] [place] [address] Dr. Ramses DumasPROF CHEM 8 (BAS METB)on [id number] gap [Moles/Vol]11.7 mmol/LNormalThe [facility] HospitalComment on above:Performed By: #### CMP #### [facility] [address] [place] [address] Dr. Ramses DumasCalcium [Mass/Vol]9.1 mg/dLNormal8.5-10.1[facility] Comment on above:Performed By: #### CMP #### [facility] [address] [address] [address] Ramses DumasChloride [Moles/Vol]103 mmol/DRfrtak25-841Xqw [facility] Comment on above:Performed By: #### CMP #### [facility] [address] [address] [address] Ramses DumasCO2 [Moles/Vol]25.9 mmol/KJbijpg11.0-32.0The [facility] Comment on above:Performed By: #### CMP #### [facility] [address] [address] [address] Ramses DumasCreatinine [Mass/Vol]0.77 mg/dLNormal0.55-1.02[facility]'S HospitalComment on above:Performed By: #### CMP #### [facility] [address] [address] [address] Ramses PenaGFR-AF GUAMANIAN>60Normal>=60The [facility] HospitalComment on above:Performed By: #### CMP #### [facility] [address] [address] [address] Ramses PenaGFR-NON AF GUAMANIAN>60Normal>=60The [facility] HospitalComment on above:Performed By: #### CMP #### [facility] [address] [address] [address] Ramses DumasGlucose [Mass/Vol]124 mg/dLCritically hwnk71-991Wkv [facility] HospitalComment on above:Performed By: #### CMP #### [facility] [address] [address] [address] Ramses DumasPotassium [Moles/Vol]3.6 mmol/LNormal3.5-5.1[facility] Comment on above:Performed By: #### CMP #### [facility] [address] [address] [address] Ramses DumasSodium [Moles/Vol]137 mmol/XZolgko137-660Xjs [facility] Comment on above:Performed By: #### CMP #### [facility] [address] [address] [address] Ramses Coronado nitrogen [Mass/Vol]12.0 mg/dLNormal7.0-18.0[facility]'S HospitalComment on above:Performed By: #### CMP #### [facility] [address] [address] [address] Ramses Coronado nitrogen/Creatinine [Mass ratio]15.6 mg/mgNoAultman Alliance Community HospitalComment on above:Performed By: #### CMP #### [facility] [address] [place] [address] Dr. Ramses Olsen MICROSCOPIC ONLYon 41-49-5560FMXPOACKQ CRYSTALSRARENormal [facility] HospitalCommclaren [place] on above:Performed By: #### BLDCX2 #### [facility] [address] [place] [address] Dr. Ramses SoteloCEAbnormalNONE SEENBrecksville [facility] on above:Performed By: #### BLDCX2 #### [facility] [address] [place] [address] Dr. Ramses Mendenhall identified Cx Nom (U)INDICATEDACMC Healthcare SystemCommclaren northern [place] on above:Performed By: #### BLDCX2 #### [facility] [address] [place] [address] Dr. Ramses Hidalgo OX CRYSTALSRARENormalAkron Children'S HospitalCommclaren [place] on above: Performed By: #### BLDCX2 #### [facility] [address] [place] [address] Dr. Ramses Hays SEENNormalNONE SEENBrecksville VA / [facility]ille [facility] on above:Performed By: #### BLDCX2 #### [facility] [address] [place] [address] Dr. Ramses Ahnystals LM Nom (Urine sed)SEENAbsanta rosaNONE SEENAkron Children'S HospitalCommclaren northern [place] on above:Performed By: #### BLDCX2 #### [facility] [address] [place] [address] Dr. Yilan ChangEpithelial cells LM Ql (Urine sed)FEWAbnormalNONE SEEN /RAREThe [facility] HospitalComment on above:Performed By: #### BLDCX2 #### [facility] [address] [place] [address] Dr. Ramses RizzoCOUSTRACEAangelormalNEELA SEENAkron Children'S HospitalCommclaren northern [place] on above:Performed By: #### BLDCX2 #### [facility] [address] [place] [address] Dr. Ramses DumasGutxqRJZ34-12Ihtmwlsb4-4Pvp [facility] HospitalCommclaren northern [place] on above: Performed By: #### BLDCX2 #### [facility] [address] [place] [address] Dr. aRmses DumasGjyyzFAV23-24SohdpvpaMMZD SEENBrecksville VA / [facility] on above: Performed By: #### BLDCX2 #### [facility] [address] [place] [address] Dr. Ramses TaborASTPRESENTASue SEENBrecksville VA / Crille Hospital on above:Performed By: #### BLDCX2 #### [facility] [address] [place] [address] Dr. Ramses Tilley KIDNEYSon [id number] KIDNEYSEXAMINATION: US KIDNEYS HISTORY: Pain COMPARISON: No relevant [...] Electronically authenticated by: GLEN PEREZ Date: 2022-09-05 11:00NoAultman Alliance Community HospitalCT ABD/PELVIS WO CONon [id number] ABD/PELVIS WO CON EXAMINATION: CT ABD/PELVIS WO [...] Electronically authenticated by: ERICKA IGLESIAS Date: 2022-08-29 01:10NormCleveland Clinic Euclid HospitalCULTURE URINEon [id number] URINECulture Observations: LIGHT GROWTH OF MIXED GENITAL DAIANA. NO POTENTIAL PATHOGENS SEEN.NormalThe [facility] HospitalComment on above:Performed By: #### URCX #### [facility] [address] [place] [address] Dr. Ramses Lemus AUTO DIFFon [id number] #0.1 103/ulNormal0.0-0.1The [facility] HospitalComment on above:Performed By: #### URCX #### [facility] [address] [place] [address] Dr. Ramses DumasBasophils/100 WBC (Bld)0.5 %Normal0.2-2.0The [facility] Comment on above:Performed By: #### URCX #### [facility] [address] [place] [address] Dr. Ramses Hoskins #0.3 103/ulNormal0.0-0.7The [facility] HospitalComment on above: Performed By: #### URCX #### [facility] [address] [place] [address] Dr. Ramses Penaosinophils/100 WBC (Bld)2.3 %Normal0.9-7.0The [facility] Comment on above:Performed By: #### URCX #### [facility] [address] [place] [address] Dr. Ramses Penarythrocyte distribution width (RBC) [Ratio]13.7 %Kjqkhl30.0-15.0 The [facility] HospitalComment on above:Performed By: #### URCX #### [facility] [address] [place] [address] Dr. Ramses DumasHematocrit (Bld) [Volume fraction]36.7 %Porjyf83.0-48.0The [facility] HospitalComment on above:Performed By: #### URCX #### [facility] [address] [place] [address] Dr. Ramses DumasHemoglobin (Bld) [Mass/Vol]12.3 g/mIQgurpb47.0-16.0The [facility] HospitalComment on above:Performed By: #### URCX #### [facility] [address] [place] [address] Dr. Ramses Rowe #0.16 10e3/ulCritically high0.00-0.03[facility] Comment on above:Performed By: #### URCX #### [facility] [address] [place] [address] Dr. Ramses Rowe %1.1 %Critically high0.0-0.5The [facility] HospitalComment on above:Performed By: #### URCX #### [facility] [address] [place] [address] Dr. Ramses Ramos #4.6 103/ulCritically high1.2-3.8The [facility] Comment on above:Performed By: #### URCX #### [facility] [address] [place] [address] Dr. Ramses Bejaranohocytes/100 WBC (Bld)31.8 %Dcxzbl30.5-60.0The [facility] HospitalComment on above:Performed By: #### URCX #### [facility] [address] [place] [address] Dr. Ramses Santos DIFF REQNONormalThe [facility] HospitalComment on above: Performed By: #### URCX #### [facility] [address] [place] [address] Dr. Ramses Parisi (RBC) [Entitic mass]26.9 cpObbxom50.7-34.0The [facility] HospitalComment on above:Performed By: #### URCX #### [facility] [address] [place] [address] Dr. Ramses Parisi (RBC) [Mass/Vol]33.5 g/aYQiafir85.9-35.2The [facility] HospitalComment on above:Performed By: #### URCX #### [facility] [address] [place] [address] Dr. Ramses Parisi (RBC) [Entitic vol]80.3 fLCritically low81.0-99.0The [facility] HospitalComment on above:Performed By: #### URCX #### [facility] [address] [place] [address] Dr. Ramses Sharif #1.0 103/ulCritically high0.3-0.8The [facility] Comment on above:Performed By: #### URCX #### [facility] [address] [address] [address] Ramses Cunhaocytes/100 WBC (Bld)7.0 %Normal1.7-12.0The [facility] Comment on above:Performed By: #### URCX #### [facility] [address] [place] [address] Dr. Ramses GuallpaUT #8.2 103/ulCritically high1.4-6.5The [facility] Comment on above:Performed By: #### URCX #### [facility] [address] [place] [address] Dr. Ramses Guallpautrophils/100 WBC (Bld)57.3 %Zxnbfj78.0-75.0The [facility] HospitalComment on above:Performed By: #### URCX #### [facility] [address] [place] [address] Dr. Ramses DumasPlatelet mean volume (Bld) [Entitic vol]8.6 fLCritically low 9.5-13.5The [facility] HospitalComment on above:Performed By: #### URCX #### [facility] [address] [place] [address] Dr. Ramses DumasPLT395 103/ryOiocyr214-030Kuo [facility] HospitalComment on above: Performed By: #### URCX #### [facility] [address] [place] [address] Dr. Ramses DumasRBC4.57 106/ulNormal4.20-5.40The [facility] HospitalComment on above:Performed By: #### URCX #### [facility] [address] [place] [address] Dr. Ramses DumasWBC14.3 103/ulCritically high4.0-11.0The [facility] HospitalComment on above:Performed By: #### URCX #### [facility] [address] [place] [address] Dr. eParce ChangER URINE PROFILEon 56-34-0167Agaafeyfk Ql (U)NegativeNormal NEGATIVEThe [facility] HospitalComment on above:Performed By: #### URIC 24 #### [facility] [address] [place] [address] Dr. Ramses Mcintyrearity (U)CLEARNormalCLEARAkron Children'S HospitalComment on above: Performed By: #### URIC 24 #### [facility] [address] [place] [address] Dr. Ramses Vegalor (U)LT. YELLOWNormalYELLOWAkron Children'S HospitalComment on above:Performed By: #### URIC 24 #### [facility] [address] [place] [address] Dr. Ramses Lizarraga micrscopic examination will be performed if indicated. NormalThe [facility] HospitalComment on above:Performed By: #### URIC 24 #### [facility] [address] [place] [address] Dr. Ramses DumasGlucose Ql (U)NegativeNormalNEGATIVEAkron Children'S HospitalComment on above:Performed By: #### URIC 24 #### [facility] [address] [place] [address] Dr. Ramses DumasHemoglobin Ql (U)LARGEAbnormalNEGKettering Health Behavioral Medical Center on above:Performed By: #### URIC 24 #### [facility] [address] [place] [address] Dr. Ramses DumasKetones Ql (U)NegativeNormalNEGATIVEAkron Children'S HospitalComment on above:Performed By: #### URIC 24 #### [facility] [address] [place] [address] Dr. Ramses DumasLEUKOCYTESMODERATEAbnormalNEGATIVEAkron Children'S HospitalComment on above:Performed By: #### URIC 24 #### [facility] [address] [place] [address] Dr. Ramses DumasNitrite Ql (U)NegativeNormalNEGATIVEAkron Children'S HospitalComment on above:Performed By: #### URIC 24 #### [facility] [address] [place] [address] Dr. Ramses DumaspH (U)6.5 [pH]Normal5-9[facility]S HospitalComment on above: Performed By: #### URIC 24 #### [facility] [address] [place] [address] Dr. Ramses DumasProtein (U) [Mass/Vol]100 mg/dLAbnormalNEGATIVE/ TRACEThe [facility] HospitalComment on above:Performed By: #### URIC 24 #### [facility] [address] [place] [address] Dr. Ramses DumasSPEC GRAVITY1.797Jckcpp9.005-<=1.025The [facility] HospitalComment on above:Performed By: #### URIC 24 #### [facility] [address] [place] [address] Dr. Ramses Carrasco MICRO INDINDICATEDNormalThe [facility] HospitalComment on above: Performed By: #### URIC 24 #### [facility] [address] [place] [address] Dr. Ramses Adamsonbilinogen Qn (U)0.2 {Lucero'U}/dLNormal0.2 - 1.0The [facility] HospitalComment on above:Performed By: #### URIC 24 #### [facility] [address] [place] [address] Dr. Ramses DumasPROF 14(COMP METB)on 34-26-7828Bpwwrqe [Mass/Vol]3.3 g/dL Critically low3.4-5.0The [facility] HospitalComment on above:Performed By: #### CMP #### [facility] [address] [place] [address] Dr. Ramses DumasAlbumin/Globulin [Mass ratio]0.8 {ratio}NormalThe [facility] HospitalComment on above:Performed By: #### CMP #### [facility] [address] [place] [address] Dr. Ramses Conteh [Catalytic activity/Vol]108 U/JHuwpgt88-971Mto [facility] HospitalComment on above:Performed By: #### CMP #### [facility] [address] [place] [address] Dr. Ramses Perez [Catalytic activity/Vol]103 U/LCritically ujty60-73Lhr [facility] HospitalComment on above:Performed By: #### CMP #### [facility] [address] [address] [address] Ramses Matson gap [Moles/Vol]6.6 mmol/LNormalThe [facility] HospitalComment on above:Performed By: #### CMP #### [facility] [address] [address] [address] Ramses DumasAST [Catalytic activity/Vol]21 U/MVnewhl81-72Uzd [facility] HospitalComment on above:Performed By: #### CMP #### [facility] [address] [address] [address] Ramses DumasBilirubin [Mass/Vol]0.2 mg/dLNormal0.2-1.0The [facility] Comment on above:Performed By: #### CMP #### [facility] [address] [address] [address] Ramses DumasCalcium [Mass/Vol]9.2 mg/dLNormal8.5-10.1The [facility] Comment on above:Performed By: #### CMP #### [facility] [address] [address] [address] Ramses DumasChloride [Moles/Vol]102 mmol/DYnvnrz13-581Hbw [facility] Comment on above:Performed By: #### CMP #### [facility] [address] [address] [address] Ramses DumasCO2 [Moles/Vol]28.8 mmol/TAocnql75.0-32.0The [facility] Comment on above:Performed By: #### CMP #### [facility] [address] [address] [address] Ramses DumasCreatinine [Mass/Vol]0.92 mg/dLNormal0.55-1.02The [facility] HospitalComment on above:Performed By: #### CMP #### [facility] [address] [address] [address] Pearce ChangEGFR-AF GUAMANIAN>60Normal>=60The [facility] HospitalComment on above:Performed By: #### CMP #### [facility] [address] [address] [address] Ramses PenaGFR-NON AF GUAMANIAN>60Normal>=60The [facility] HospitalComment on above:Performed By: #### CMP #### [facility] [address] [address] [address] Ramses DumasGlobulin (S) [Mass/Vol]4.1 g/dLNormalThMemorial Health System Selby General HospitalComment on above:Performed By: #### CMP #### [facility] [address] [address] [address] Ramses DumasGlucose [Mass/Vol]114 mg/dLCritically zuyn57-365Pme [facility] on above:Performed By: #### CMP #### [facility] [address] [address] [address] Ramses DumasPotassium [Moles/Vol]3.4 mmol/LCritically low3.5-5.1The [facility] HospitalComment on above:Performed By: #### CMP #### [facility] [address] [address] [address] Ramses DumasProtein [Mass/Vol]7.4 g/dLNormal6.4-8.2The [facility] Comment on above:Performed By: #### CMP #### [facility] [address] [address] [address] Ramses DumasSodium [Moles/Vol]134 mmol/LCritically zak057-341Yjx [facility] Hospitalment on above:Performed By: #### CMP #### [facility] [address] [address] [address] Ramses DumasUrea nitrogen [Mass/Vol]11.0 mg/dLNormal7.0-18.0The [facility] Hospitalment on above:Performed By: #### CMP #### [facility] [address] [address] [address] Ramses DumasUrea nitrogen/Creatinine [Mass ratio]12.0 mg/mgNormalThe [facility] HospitalComment on above:Performed By: #### CMP #### [facility] [address] [place] [address] Dr. Ramses VARELA ONLYon 22-32-9586KRYHTKUPAQAYCMRXNjfkyxylHRGZ SEENAkron Children'S HospitalCommclaren [place] on above:Performed By: #### URIC 24 #### [facility] [address] [place] [address] Dr. Ramses Mendenhall identified Cx Nom (U)INDICATEDNoalThMemorial Health System Selby General HospitalComment on above:Performed By: #### URIC 24 #### [facility] [address] [place] [address] Dr. Ramses Hays SEENNormalNONE SEENAkron Children'S HospitalCommclaren [place] on above:Performed By: #### URIC 24 #### [facility] [address] [place] [address] Dr. Ramses Dominguez LM Nom (Urine sed)NONE SEENNormalNONE SEENAkron Children'S HospitalCommclaren [place] on above:Performed By: #### URIC 24 #### [facility] [facility] [address] [place] [address] Dr. Pearce ChangEpithelial cells LM Ql (Urine sed)RARENormalNONE SEEN /RAREAkron Children'S HospitalCommclaren northern [place] on above:Performed By: #### URIC 24 #### [facility] [address] [place] [address] Dr. Ramses RizzoCOUSNONE SEENNormalNONE SEENAkron Children'S HospitalCommclaren northern [place] on above:Performed By: #### URIC 24 #### [facility] [address] [place] [address] Dr. Ramses BeeTxvcpSYO79-25Ewdunlon2-9ZzxBrecksville VA / [facility]ille [facility] on above: Performed By: #### URIC 24 #### [facility] [address] [place] [address] Dr. Ramses DumasWBC5-10AbnormalNONE SEENBrecksville VA / Crille Hospital on above: Performed By: #### URIC 24 #### [facility] [address] [place] [address] Dr. Ramses Villaseñor BLOODon [id number] examination of blood, cultureCulture Observations: Pediatric bottle positive, only bottle drawn [...] Vancomycin 0.5 S F Tetracycline >=16 R FNTwin City HospitalComment on above:Performed By: #### BLDCX2 #### [facility] [address] [place] [address] Dr. Ramses DumasMicroscopic examination of blood, cultureCulture Observations: Pediatric bottle positive, only bottle drawn [...] Vancomycin 0.5 S F Tetracycline >=16 R FNTwin City HospitalComment on above:Performed By: #### CBC #### [facility] [address] [place] [address] Dr. Ramses Lemus AUTO DIFFon [id number] #0.0 103/ulNormal0.0-0.1Ak[facility] Children'S HospitalComment on above:Performed By: #### CBC #### [facility] [address] [place] [address] Dr. Ramses DumasBasophils/100 WBC (Bld)0.1 %Critically low0.2-2.0The [facility] HospitalComment on above:Performed By: #### CBC #### [facility] [address] [place] [address] Dr. Ramses Hoskins #0.0 103/ulNormal0.0-0.7The [facility] HospitalComment on above: Performed By: #### CBC #### [facility] [address] [place] [address] Dr. Ramses Penaosinophils/100 WBC (Bld)0.0 %Critically low0.9-7.0The [facility] HospitalComment on above:Performed By: #### CBC #### [facility] [address] [place] [address] Dr. Ramses Irelandthrocyte distribution width (RBC) [Ratio]13.5 %Qlfhzi83.0-15.0 The [facility] HospitalComment on above:Performed By: #### CBC #### [facility] [address] [place] [address] Dr. Ramses DumasHematocrit (Bld) [Volume fraction]33.0 %Critically low36.0-48.0 The [facility] HospitalComment on above:Performed By: #### CBC #### [facility] [address] [place] [address] Dr. Ramses DumasHemoglobin (Bld) [Mass/Vol]10.7 g/dLCritically low12.0-16.0The [facility] HospitalComment on above:Performed By: #### CBC #### [facility] [address] [place] [address] Dr. Ramses Rowe #0.04 10e3/ulCritically high0.00-0.03The [facility] Comment on above:Performed By: #### CBC #### [facility] [address] [place] [address] Dr. Ramses Rowe %0.4 %Normal0.0-0.5The [facility] HospitalComment on above: Performed By: #### CBC #### [facility] [address] [place] [address] Dr. Ramses Ramos #0.8 103/ulCritically low1.2-3.8The [facility] Comment on above:Performed By: #### CBC #### [facility] [address] [place] [address] Dr. Ramses Phelpsmphocytes/100 WBC (Bld)7.9 %Critically low20.5-60.0The [facility] HospitalComment on above:Performed By: #### CBC #### [facility] [address] [place] [address] Dr. Ramses Santos DIFF REQNONormalThe [facility] HospitalComment on above: Performed By: #### CBC #### [facility] [address] [place] [address] Dr. Ramses Garcia (RBC) [Entitic mass]26.5 pgCritically low26.7-34.0The [facility] HospitalComment on above:Performed By: #### CBC #### [facility] [address] [place] [address] Dr. Ramses Parisi (RBC) [Mass/Vol]32.4 g/iSAjcwep72.9-35.2The [facility] HospitalComment on above:Performed By: #### CBC #### [facility] [address] [place] [address] Dr. Ramses Quinones (RBC) [Entitic vol]81.7 tGKnvttv76.0-99.0The [facility] HospitalComment on above:Performed By: #### CBC #### [facility] [address] [place] [address] Dr. Ramses Sharif #0.6 103/ulNormal0.3-0.8The [facility] HospitalComment on above:Performed By: #### CBC #### [facility] [address] [place] [address] Dr. Ramses Cunhaocytes/100 WBC (Bld)6.3 %Normal1.7-12.0[facility] Comment on above:Performed By: #### CBC #### [facility] [address] [address] [address] Ramses Silva #8.6 103/ulCritically high1.4-6.5The [facility] Comment on above:Performed By: #### CBC #### [facility] [address] [place] [address] Dr. Ramses Guallpautrophils/100 WBC (Bld)85.3 %Critically high43.0-75.0The [facility] HospitalComment on above:Performed By: #### CBC #### [facility] [address] [place] [address] Dr. Ramses DumasPlatelet mean volume (Bld) [Entitic vol]9.1 fLCritically low 9.5-13.5The [facility] HospitalComment on above:Performed By: #### CBC #### [facility] [address] [place] [address] Dr. Ramses DumasPLT248 103/viVqiwpu183-098Xfg [facility] HospitalComment on above: Performed By: #### CBC #### [facility] [address] [place] [address] Dr. Ramses DumasRBC4.04 106/ulCritically low4.20-5.40The [facility] HospitalComment on above:Performed By: #### CBC #### [facility] [address] [place] [address] Dr. Ramses DumasWBC10.1 103/ulNormal4.0-11.0The [facility] HospitalComment on above:Performed By: #### CBC #### [facility] [address] [place] [address] Dr. Ramses Villaseñor URINEon [id number] URINECulture Observations: Group B Strep called to Dolly Dewey [...] Vancomycin 0.5 S F Tetracycline >=16 R FNormalThe [facility] HospitalComment on above:Performed By: #### URCX #### [facility] [address] [place] [address] Dr. Ramses DumasPROGabbie 14(COMP METB)on [id number] [Mass/Vol]2.4 g/dL Critically low3.4-5.0The [facility] HospitalComment on above:Performed By: #### CVDTBH #### [facility] [address] [place] [address] Dr. Ramses DumasAlbumin/Globulin [Mass ratio]0.7 {ratio}NormalThe [facility] HospitalComment on above:Performed By: #### CVDTBH #### [facility] [address] [place] [address] Dr. Ramses Conteh [Catalytic activity/Vol]95 U/MOztuxv95-368Iwo [facility] HospitalComment on above:Performed By: #### CVDTBH #### [facility] [address] [place] [address] Dr. Ramses Perez [Catalytic activity/Vol]327 U/LCritically nsin45-51Hmw [facility] HospitalComment on above:Performed By: #### CVDTBH #### [facility] [address] [place] [address] Dr. Ramses Matson gap [Moles/Vol]8.7 mmol/LNormalThe [facility] HospitalComment on above:Performed By: #### CVDTBH #### [facility] [address] [place] [address] Dr. Ramses DumasAST [Catalytic activity/Vol]165 U/LCritically qizc41-37Dcb [facility] HospitalComment on above:Performed By: #### CVDTBH #### [facility] [address] [place] [address] Dr. Ramses DumasBilirubin [Mass/Vol]0.4 mg/dLNormal0.2-1.0The [facility] Comment on above:Performed By: #### CVDTBH #### [facility] [address] [address] [address] Ramses DumasCalcium [Mass/Vol]8.0 mg/dLCritically low8.5-10.1The [facility] HospitalComment on above:Performed By: #### CVDTBH #### [facility] [address] [address] [address] Ramses DumasChloride [Moles/Vol]108 mmol/LCritically bozz90-053Zbv [facility] HospitalComment on above:Performed By: #### CVDTBH #### [facility] [address] [place] [address] Dr. Ramses DumasCO2 [Moles/Vol]25.3 mmol/XGuozow12.0-32.0The [facility] Comment on above:Performed By: #### CVDTBH #### [facility] [address] [place] [address] Dr. Ramses DumasCreatinine [Mass/Vol]0.70 mg/dLNormal0.55-1.02The [facility] HospitalComment on above:Performed By: #### CVDTBH #### [facility] [address] [place] [address] Dr. Ramses PenaGFR-AF GUAMANIAN>60Normal>=60The [facility] HospitalComment on above:Performed By: #### CVDTBH #### [facility] [address] [address] [address] Ramses PenaGFR-NON AF GUAMANIAN>60Normal>=60The [facility] HospitalComment on above:Performed By: #### CVDTBH #### [facility] [address] [address] [address] Ramses DumasGlobulin (S) [Mass/Vol]3.6 g/dLNormalThe [facility] HospitalComment on above:Performed By: #### CVDTBH #### [facility] [address] [place] [address] Dr. Ramses uDmasGlucose [Mass/Vol]160 mg/dLCritically ccfv54-016Qcy [facility] HospitalComment on above:Performed By: #### CVDTBH #### [facility] [address] [place] [address] Dr. Ramses DumasPotassium [Moles/Vol]4.0 mmol/LNormal3.5-5.1The [facility] Comment on above:Performed By: #### CVDTBH #### [facility] [address] [place] [address] Dr. Ramses DumasProtein [Mass/Vol]6.0 g/dLCritically low6.4-8.2The [facility] HospitalComment on above:Performed By: #### CVDTBH #### [facility] [address] [place] [address] Dr. Ramses Bejaranodium [Moles/Vol]138 mmol/PGzgyaw839-385Cgr [facility] Comment on above:Performed By: #### CVDTBH #### [facility] [address] [place] [address] Dr. Ramses DumasUrea nitrogen [Mass/Vol]6.0 mg/dLCritically low7.0-18.0The [facility] HospitalComment on above:Performed By: #### CVDTBH #### [facility] [address] [place] [address] Dr. Ramses Coronado nitrogen/Creatinine [Mass ratio]8.6 mg/mgNormalThe [facility] HospitalComment on above:Performed By: #### CVDTBH #### [facility] [address] [place] [address] Dr. Ramses Lemus AUTO DIFFon [id number] #0.0 103/ulNormal0.0-0.1[facility] HospitalComment on above:Performed By: #### URCX #### [facility] [address] [place] [address] Dr. Ramses DumasBashayyphils/100 WBC (Bld)0.2 %Normal0.2-2.0[facility] Comment on above:Performed By: #### URCX #### [facility] [address] [place] [address] Dr. Ramses Hoskins #0.0 103/ulNormal0.0-0.7The [facility] HospitalComment on above: Performed By: #### URCX #### [facility] [address] [place] [address] Dr. Ramses Penaosinophils/100 WBC (Bld)0.1 %Critically low0.9-7.0The [facility] HospitalComment on above:Performed By: #### URCX #### [facility] [address] [place] [address] Dr. Ramses Penarythrocyte distribution width (RBC) [Ratio]13.4 %Qmhxgd67.0-15.0 The [facility] HospitalComment on above:Performed By: #### URCX #### [facility] [address] [place] [address] Dr. Ramses DumasHematocrit (Bld) [Volume fraction]34.1 %Critically low36.0-48.0 The [facility] HospitalComment on above:Performed By: #### URCX #### [facility] [address] [place] [address] Dr. Ramses DumasHemoglobin (Bld) [Mass/Vol]10.9 g/dLCritically low12.0-16.0The [facility] HospitalComment on above:Performed By: #### URCX #### [facility] [address] [place] [address] Dr. Ramses Rowe #0.02 10e3/ulNormal0.00-0.03The [facility] HospitalComment on above:Performed By: #### URCX #### [facility] [address] [place] [address] Dr. Ramses Rowe %0.2 %Normal0.0-0.5The [facility] HospitalComment on above: Performed By: #### URCX #### [facility] [address] [place] [address] Dr. Ramses Ramos #0.7 103/ulCritically low1.2-3.8The [facility] Comment on above:Performed By: #### URCX #### [facility] [address] [place] [address] Dr. Ramses Phelpsmphocytes/100 WBC (Bld)6.9 %Critically low20.5-60.0The [facility] HospitalComment on above:Performed By: #### URCX #### [facility] [address] [place] [address] Dr. Ramses Santos DIFF REQNONormalThe [facility] HospitalComment on above: Performed By: #### URCX #### [facility] [address] [place] [address] Dr. Ramses Parisi (RBC) [Entitic mass]26.1 pgCritically low26.7-34.0The [facility] HospitalComment on above:Performed By: #### URCX #### [facility] [address] [place] [address] Dr. Ramses Parisi (RBC) [Mass/Vol]32.0 g/mHMacmhz02.9-35.2The [facility] HospitalComment on above:Performed By: #### URCX #### [facility] [address] [place] [address] Dr. Ramses Quinones (RBC) [Entitic vol]81.8 iGCiznex60.0-99.0The [facility] HospitalComment on above:Performed By: #### URCX #### [facility] [address] [place] [address] Dr. Ramses Sharif #0.6 103/ulNormal0.3-0.8The [facility] HospitalComment on above:Performed By: #### URCX #### [facility] [address] [place] [address] Dr. Ramses Cunhaocytes/100 WBC (Bld)5.9 %Normal1.7-12.0The [facility] Comment on above:Performed By: #### URCX #### [facility] [address] [place] [address] Dr. Ramses Silva #8.2 103/ulCritically high1.4-6.5The [facility] Comment on above:Performed By: #### URCX #### [facility] [address] [place] [address] Dr. Rasmes Guallpautrophils/100 WBC (Bld)86.7 %Critically high43.0-75.0The [facility] HospitalComment on above:Performed By: #### URCX #### [facility] [address] [place] [address] Dr. Ramses DumasPlatelet mean volume (Bld) [Entitic vol]9.4 fLCritically low 9.5-13.5The [facility] HospitalComment on above:Performed By: #### URCX #### [facility] [address] [place] [address] Dr. Ramses DumasPLT235 103/bsMwwrne528-539Qcg [facility] HospitalComment on above: Performed By: #### URCX #### [facility] [address] [place] [address] Dr. Ramses DumasRBC4.17 106/ulCritically low4.20-5.40The [facility] HospitalComment on above:Performed By: #### URCX #### [facility] [address] [place] [address] Dr. Ramses DumasWBC9.5 103/ulNormal4.0-11.0The [facility] HospitalComment on above: Performed By: #### URCX #### [facility] [address] [place] [address] Dr. Ramses Schmid 14(COMP METB)on [id number] [Mass/Vol]2.6 g/dL Critically low3.4-5.0The [facility] HospitalComment on above:Performed By: #### URIC 24 #### [facility] [address] [place] [address] Dr. Ramses DumasAlbumin/Globulin [Mass ratio]0.8 {ratio}NormalThe [facility] HospitalComment on above:Performed By: #### URIC 24 #### [facility] [address] [address] [address] Ramses WinklerP [Catalytic activity/Vol]82 U/UHxnffp84-243Osg [facility] HospitalComment on above:Performed By: #### URIC 24 #### [facility] [address] [address] [address] Ramses WinklerT [Catalytic activity/Vol]257 U/LCritically wylc56-44Ann [facility] HospitalComment on above:Performed By: #### URIC 24 #### [facility] [address] [address] [address] Ramses Mooreon gap [Moles/Vol]10.3 mmol/LNormalThe [facility] Comment on above:Performed By: #### URIC 24 #### [facility] [address] [place] [address] Dr. Ramses DumasAST [Catalytic activity/Vol]196 U/LCritically dwpf06-71Vap [facility] HospitalComment on above:Performed By: #### URIC 24 #### [facility] [address] [place] [address] Dr. Ramses DumasBilirubin [Mass/Vol]0.5 mg/dLNormal0.2-1.0[facility] Comment on above:Performed By: #### URIC 24 #### [facility] [address] [place] [address] Dr. Ramses DumasCalcium [Mass/Vol]7.8 mg/dLCritically low8.5-10.1The [facility] HospitalComment on above:Performed By: #### URIC 24 #### [facility] [address] [place] [address] Dr. Ramses DumasChloride [Moles/Vol]104 mmol/CLhicrp59-925Sdh [facility] Comment on above:Performed By: #### URIC 24 #### [facility] [address] [address] [address] Ramses DumasCO2 [Moles/Vol]24.4 mmol/VIamcqu57.0-32.0The [facility] Comment on above:Performed By: #### URIC 24 #### [facility] [address] [address] [address] Ramses DumasCreatinine [Mass/Vol]1.09 mg/dLCritically high0.55-1.02The [facility] HospitalComment on above:Performed By: #### URIC 24 #### [facility] [address] [address] [address] Pearce ChangEGFR-AF GUAMANIAN>60Normal>=60The [facility] HospitalComment on above:Performed By: #### URIC 24 #### [facility] [address] [address] [address] Ramses PenaGFR-NON AF CMKLBJJN56 mL/min/1.41f5Kuwymosoij low>=60The [facility] HospitalComment on above:Performed By: #### URIC 24 #### [facility] [address] [place] [address] Dr. Ramses DumasGlobulin (S) [Mass/Vol]3.3 g/dLNormalThe [facility] HospitalComment on above:Performed By: #### URIC 24 #### [facility] [address] [place] [address] Dr. Ramses DumasGlucose [Mass/Vol]143 mg/dLCritically essu49-575Seb [facility] HospitalComment on above:Performed By: #### URIC 24 #### [facility] [address] [place] [address] Dr. Ramses DumasPotassium [Moles/Vol]3.7 mmol/LNormal3.5-5.1The [facility] Comment on above:Performed By: #### URIC 24 #### [facility] [address] [place] [address] Dr. Ramses DumasProtein [Mass/Vol]5.9 g/dLCritically low6.4-8.2The [facility] HospitalComment on above:Performed By: #### URIC 24 #### [facility] [address] [place] [address] Dr. Ramses DumasSodium [Moles/Vol]135 mmol/LCritically obe984-874Xmw [facility] HospitalComment on above:Performed By: #### URIC 24 #### [facility] [address] [place] [address] Dr. Ramses Coronado nitrogen [Mass/Vol]10.0 mg/dLNormal7.0-18.0The [facility] HospitalComment on above:Performed By: #### URIC 24 #### [facility] [address] [place] [address] Dr. Ramses Coronado nitrogen/Creatinine [Mass ratio]9.2 mg/mgNoAultman Alliance Community HospitalComment on above:Performed By: #### URIC 24 #### [facility] [address] [place] [address] Dr. Ramses Fulton CULTURE ID PANELon 08-22-2022. baumanniiNot detectedNormal NOT DETECTEDThe [facility] HospitalComment on above:Performed By: #### CVDTBH #### [facility] [address] [place] [address] Dr. Ramses Abel fragilisNot detectedNormalNOT DETECTEDThe [facility] HospitalComment on above:Performed By: #### CVDTBH #### [facility] [address] [place] [address] Dr. Rmases Arndt CONTROLSPASSEDACMC Healthcare SystemComment on above: Performed By: #### CVDTBH #### [facility] [address] [place] [address] Dr. Ramses ArndtBTHDYANA CULTURE BOTTLE INFORMATIONNoAultman Alliance Community HospitalComment on above:Performed By: #### CVDTBH #### [facility] [address] [place] [address] Dr. Ramses ArndtDmmcvCJILXY2UZVICRMOFRYAR RESISTANCE GENESACMC Healthcare System Comment on above:Performed By: #### CVDTBH #### [facility] [address] [place] [address] Dr. Ramses ArndtHD2SEE BELOWACMC Healthcare SystemComment on above: Result Comment: Note: Antimicrobial resitance can occur via multiple mechanisms. A Not Detected result for the [employer] antomicrobial resistance gene assays does not indicate antimicrobial susceptibility. Subculturing is required for species identification and susceptibility testing of isolates.Performed By: #### CVDTBH #### [facility] [address] [place] [address] Dr. Ramses ArndtApzdcATBSTQ1SwdokawwJcefigZbc Bellevue HospitalComment on above: Performed By: #### CVDTBH #### [facility] [address] [place] [address] Dr. Ramses ArndtMckeqRXPSSU0CrvbnpmrQtjhmoYdg [facility] HospitalComment on above: Performed By: #### CVDTBH #### [facility] [address] [place] [address] Dr. Ramses ArndtRyeloFPVFIC3FZWKEPruafeQuyACMC Healthcare SystemComment on above:Performed By: #### CVDTBH #### [facility] [address] [place] [address] Dr. Ramses Weinstein Set:Set 1NormalThe [facility] HospitalComment on above: Performed By: #### CVDTBH #### [facility] [address] [place] [address] Dr. Ramses Weinstein:PediatricACMC Healthcare SystemComment on above: Performed By: #### CVDTBH #### [facility] [address] [place] [address] Dr. Ramses Coreas. neoformans/gattiiNot detectedNormalNOT DETECTEDThe [facility] HospitalComment on above:Performed By: #### CVDTBH #### [facility] [address] [place] [address] Dr. Ramses Arredondo albicansNot detectedNormalNOT DETECTEDThe [facility] HospitalComment on above:Performed By: #### CVDTBH #### [facility] [address] [place] [address] Dr. Ramses Arredondo aurisNot detectedNormalNOT DETECTEDThe [facility] on above:Performed By: #### CVDTBH #### [facility] [address] [place] [address] Dr. Ramses Arredondo glabrataNot detectedNormalNOT DETECTEDThe [facility] HospitalComment on above:Performed By: #### CVDTBH #### [facility] [address] [address] [address] Ramses Arredondo KruseiNot detectedNormalNOT DETECTEDThe [facility] Comment on above:Performed By: #### CVDTBH #### [facility] [address] [address] [address] Ramses Arredondo ParapsilosisNot detectedNormalNOT DETECTEDThe [facility] HospitalComment on above:Performed By: #### CVDTBH #### [facility] [address] [address] [address] Ramses Arredondo TropicalisNot detectedNormalNOT DETECTEDThe [facility] HospitalComment on above:Performed By: #### CVDTBH #### [facility] [address] [address] [address] Ramses DumasCTX-M Resistant GeneNot ApplicableNormalNOT DETECTEDThe [facility] HospitalComment on above:Performed By: #### CVDTBH #### [facility] [address] [address] [address] Ramses Pena. Cloacae complexNot detectedNormalNOT DETECTEDThe [facility]Comm[facility] [place] on above:Performed By: #### CVDTBH #### [facility] [address] [address] [address] Ramses Pena. faecalisNot detectedNormalNOT DETECTED[facility] Comment on above:Performed By: #### CVDTBH #### [facility] [address] [address] [address] Ramses Pena. faeciumNot detectedNormalNOT DETECTEDAk[facility] Comment on above:Performed By: #### CVDTBH #### [facility] [address] [address] [address] Ramses PenanterobacteriaceaeNot detectedNormalNOT DETECTEDThe [facility] HospitalComment on above:Performed By: #### CVDTBH #### [facility] [address] [address] [address] Ramses Reyescherichia coliNot detectedNormalNOT DETECTEDThe [facility] HospitalComment on above:Performed By: #### CVDTBH #### [facility] [address] [address] [address] Ramses Cat. influenzaeNot detectedNormalNOT DETECTEDThe [facility] Comment on above:Performed By: #### CVDTBH #### [facility] [address] [address] [address] Ramses Hale Resistant GeneNot ApplicableNormalNOT DETECTEDThe [facility] HospitalComment on above:Performed By: #### CVDTBH #### [facility] [address] [address] [address] Ramses Farr. oxytocaNot detectedNormalNOT DETECTEDThe [facility] Comment on above:Performed By: #### CVDTBH #### [facility] [address] [address] [address] Ramses Farr. pneumoniaeNot detectedNormalNOT DETECTEDThe [facility] Comment on above:Performed By: #### CVDTBH #### [facility] [address] [address] [address] Ramses Mensahella aerogenesNot detectedNormalNOT DETECTEDThe [facility] HospitalComment on above:Performed By: #### CVDTBH #### [facility] [address] [address] [address] Ramses DumasKPC Resistant GeneNot detectedNormalNOT DETECTEDThe [facility]Commcl[facility] [place] on above:Performed By: #### CVDTBH #### [facility] [address] [address] [address] Ramses Conn. monocytogenesNot detectedNormalNOT DETECTEDThe [facility] HospitalComment on above:Performed By: #### CVDTBH #### [facility] [address] [address] [address] Ramses DumasMcr-1 Resistant GeneNot ApplicableNormalNOT DETECTEDThe [facility] [place] on above:Performed By: #### CVDTBH #### [facility] [address] [address] [address] Ramses VinesA/CNot ApplicableNormalNOT DETECTEDThe [facility] Comment on above:Performed By: #### CVDTBH #### [facility] [address] [address] [address] Ramses Casillas/C MREJNot ApplicableNormalNOT DETECTEDThe [facility] Comment on above:Performed By: #### CVDTBH #### [facility] [address] [address] [address] Ramses Dow meningitidisNot detectedNormalNOT DETECTEDThe [facility] HospitalComment on above:Performed By: #### CVDTBH #### [facility] [address] [address] [address] Ramses Washington Resistant GeneNot ApplicableNormalNOT DETECTEDThe [facility] HospitalComment on above:Performed By: #### CVDTBH #### [facility] [address] [address] [address] Ramses DumasOpumnXcg-48-dgqmOxv ApplicableNormalNOT DETECTEDThe [facility] Comment on above:Performed By: #### CVDTBH #### [facility] [address] [address] [address] Ramses DumasProteusNot detectedNormalNOT DETECTEDThe [facility] HospitalComment on above:Performed By: #### CVDTBH #### [facility] [address] [address] [address] Ramses Cody. aeruginosaNot detectedNormalNOT DETECTEDThe [facility] HospitalComment on above:Performed By: #### CVDTBH #### [facility] [address] [address] [address] Ramses Gutierres. maltophiliaNot detectedNormalNOT DETECTEDAk[facility] Comment on above:Performed By: #### CVDTBH #### [facility] [address] [address] [address] Ramses DumasSalmonellaNot detectedNormalNOT DETECTEDThe [facility] Comment on above:Performed By: #### CVDTBH #### [facility] [address] [address] [address] Ramses Salmeronatia marcescensNot detectedNormalNOT DETECTEDThe [facility] HospitalComment on above:Performed By: #### CVDTBH #### [facility] [address] [address] [address] Ramses Williamson:unknown/not givenNormalThe [facility] HospitalComment on above:Performed By: #### CVDTBH #### [facility] [address] [address] [address] Ramses Bruno. aureusNot detectedNormalNOT DETECTEDThe [facility] Comment on above:Performed By: #### CVDTBH #### [facility] [address] [address] [address] Ramses Bruno. epidermidisNot detectedNormalNOT DETECTEDThe [facility]Comm[facility] [place] on above:Performed By: #### CVDTBH #### [facility] [address] [address] [address] Ramses Bruno. lugdunensisNot detectedNormalNOT DETECTEDThe [facility] HospitalComment on above:Performed By: #### CVDTBH #### [facility] [address] [address] [address] Ramses DavisococcusNot detectedNormalNOT DETECTEDThe [facility] Comment on above:Performed By: #### CVDTBH #### [facility] [address] [address] [address] Ramses Mendoza. agalactiaeDetectedCritically abnormalNOT DETECTEDThe [facility]Comm[facility] [place] on above:Performed By: #### CVDTBH #### [facility] [address] [address] [address] Ramses Mendoza. pneumoniaeNot detectedNormalNOT DETECTEDThe [facility]Comm[facility] [place] on above:Performed By: #### CVDTBH #### [facility] [address] [address] [address] Ramses Navarrete pyogenesNot detectedNormalNOT DETECTEDThe [facility]Commcl[facility] [place] on above:Performed By: #### CVDTBH #### [facility] [address] [address] [address] Yilan ChangStreptococcusDetectedCritically abnormalNOT DETECTEDThe [facility] HospitalComment on above:Performed By: #### CVDTBH #### [facility] [address] [place] [address] Dr. Ramses Sterling/Ross Cortes. GeneNot detectedNormalNOT DETECTEDThe [facility] HospitalComment on above:Performed By: #### CVDTBH #### [facility] [address] [place] [address] Dr. Ramses Yang Resistant GeneNot ApplicableNormalNOT DETECTEDThe [facility] HospitalComment on above:Performed By: #### CVDTBH #### [facility] [address] [place] [address] Dr. Ramses Lemus AUTO DIFFon [id number] #0.1 103/ulNormal0.0-0.1The [facility] HospitalComment on above:Performed By: #### URIC 24 #### [facility] [address] [place] [address] Dr. Ramses Ocasiosophils/100 WBC (Bld)0.7 %Normal0.2-2.0The [facility] Comment on above:Performed By: #### URIC 24 #### [facility] [address] [place] [address] Dr. Ramses Hoskins #0.1 103/ulNormal0.0-0.7The [facility] HospitalComment on above: Performed By: #### URIC 24 #### [facility] [address] [place] [address] Dr. Ramses Penaosinophils/100 WBC (Bld)1.7 %Normal0.9-7.0The [facility] Comment on above:Performed By: #### URIC 24 #### [facility] [address] [place] [address] Dr. Ramses Penarythrocyte distribution width (RBC) [Ratio]13.2 %Bduifa68.0-15.0 The [facility] HospitalComment on above:Performed By: #### URIC 24 #### [facility] [address] [place] [address] Dr. Ramses Leeatocrit (Bld) [Volume fraction]39.8 %Tummjs70.0-48.0The [facility] HospitalComment on above:Performed By: #### URIC 24 #### [facility] [address] [place] [address] Dr. Ramses DumasHemoglobin (Bld) [Mass/Vol]12.9 g/jLKigrnt56.0-16.0The [facility] HospitalComment on above:Performed By: #### URIC 24 #### [facility] [address] [place] [address] Dr. Ramses Rowe #0.02 10e3/ulNormal0.00-0.03The [facility] HospitalComment on above:Performed By: #### URIC 24 #### [facility] [address] [place] [address] Dr. Ramses Rowe %0.2 %Normal0.0-0.5The [facility] HospitalComment on above: Performed By: #### URIC 24 #### [facility] [address] [place] [address] Dr. Ramses Ramos #3.2 103/ulNormal1.2-3.8The [facility] HospitalComment on above:Performed By: #### URIC 24 #### [facility] [address] [place] [address] Dr. Ramses Phelpsmphocytes/100 WBC (Bld)40.0 %Qezigg00.5-60.0The [facility] HospitalComment on above:Performed By: #### URIC 24 #### [facility] [address] [place] [address] Dr. Ramses HenriquezUAL DIFF REQNONormalThe [facility] HospitalComment on above: Performed By: #### URIC 24 #### [facility] [address] [place] [address] Dr. Ramses Garcia (RBC) [Entitic mass]26.6 pgCritically low26.7-34.0The [facility] HospitalComment on above:Performed By: #### URIC 24 #### [facility] [address] [place] [address] Dr. Ramses ParisiHC (RBC) [Mass/Vol]32.4 g/cCCknsda35.9-35.2The [facility] HospitalComment on above:Performed By: #### URIC 24 #### [facility] [address] [place] [address] Dr. Ramses ParisiV (RBC) [Entitic vol]82.1 aKWonhau60.0-99.0The [facility] HospitalComment on above:Performed By: #### URIC 24 #### [facility] [address] [place] [address] Dr. Ramses Sharif #0.6 103/ulNormal0.3-0.8The [facility] HospitalComment on above:Performed By: #### URIC 24 #### [facility] [address] [place] [address] Dr. Ramses Cunhaocytes/100 WBC (Bld)7.5 %Normal1.7-12.0The [facility] Comment on above:Performed By: #### URIC 24 #### [facility] [address] [place] [address] Dr. Ramses Silva #4.0 103/ulNormal1.4-6.5The [facility] HospitalComment on above:Performed By: #### URIC 24 #### [facility] [address] [place] [address] Dr. Ramses Guallpautrophils/100 WBC (Bld)49.9 %Legrxw97.0-75.0The [facility] HospitalComment on above:Performed By: #### URIC 24 #### [facility] [address] [place] [address] Dr. Ramses Whaleylet mean volume (Bld) [Entitic vol]9.3 fLCritically low 9.5-13.5The [facility] HospitalComment on above:Performed By: #### URIC 24 #### [facility] [address] [place] [address] Dr. Ramses DumasPLT354 103/rcBejwzo631-322Meb [facility] HospitalComment on above: Performed By: #### URIC 24 #### [facility] [address] [place], [place] [address] Dr. Ramses DumasRBC4.85 106/ulNormal4.20-5.40The [facility] HospitalCommclaren [place] on above:Performed By: #### URIC 24 #### [facility] [address] [place], [place] [address] Dr. Ramses DumasWBC8.1 103/ulNormal4.0-11.0The [place] HospitalCommcl[facility] [place] on above: Performed By: #### URIC 24 #### [facility] [address] [place], [place] [address] Dr. Ramses DumasCT ABD/PELVIS WO CONon [id number] ABD/PELVIS WO CONEXAM: CT ABD/PELVIS WO CON 08/22/2022 5:16 AM [...] Electronically authenticated by: KESHIA IRIZARRY Date: 2022-08-22 07:04[facility] Healthcare SystemCovid-19 PCR (CVDTB)on [id number]-CoV-2 (COVID-19) RNA FRANCESCA+probe Ql (Unsp spec)Not detectedNormalNOT DETECTEDAk[facility] Comment on above:Result Comment: When diagnostic testing is negative, the [...] for this test is supported by the [place] of Health and Human Service's declaration that circumstances exist to justify the emergency use of in vitro diagnostics for the detection and/or diagnosis of the virus that causes COVID-19. This EUA will remain in effect for the duration of the COVID-19 declaration justifying emergency of IVDs, unless it is terminated or revoked by the FDA (after which the test may no longer be used).Performed By: #### CMP #### [facility] [address] [place] [address] Dr. Ramses Kay URINE PROFILEon [id number] Ql (U)NegativeNormal NEGATIVEAkron Children'S HospitalComment on above:Performed By: #### URCX #### [facility] [address] [place] [address] Dr. Ramses Stafford (U)CLEARNormalCLEARAkron Children'S HospitalComment on above: Performed By: #### URCX #### [facility] [address] [place] [address] Dr. Ramses Francis (U)LT. YELLOWNormalYELLOWAkron Children'S HospitalComment on above:Performed By: #### URCX #### [facility] [address] [place] [address] Dr. Ramses Lizarraga micrscopic examination will be performed if indicated. NormalAkron Children'S HospitalComment on above:Performed By: #### URCX #### [facility] [address] [place] [address] Dr. Yilan ChangGlucose Ql (U)NegativeNormalNEGATIVEAkron Children'S HospitalComment on above:Performed By: #### URCX #### [facility] [address] [place] [address] Dr. Ramses DumasHemoglobin Ql (U)SMALLAbnormalNEGATIVEMercy Health St. [facility] on above:Performed By: #### URCX #### [facility] [address] [place] [address] Dr. Ramses DumasKetones Ql (U)NegativeNormalNEGATIVEAkron Children'S HospitalComment on above:Performed By: #### URCX #### [facility] [address] [place] [address] Dr. Ramses DumasLEUKOCYTESSMALLAbnormalNEGATIVEAkron Children'S HospitalComment on above:Performed By: #### URCX #### [facility] [address] [place] [address] Dr. Ramses DumasNitrite Ql (U)NegativeNormalNEGATIVEAkron Children'S HospitalComment on above:Performed By: #### URCX #### [facility] [address] [place] [address] Dr. Ramses DumaspH (U)7.0 [pH]Normal5-9[facility] Children'S HospitalComment on above: Performed By: #### URCX #### [facility] [address] [place] [address] Dr. Ramses DumasProtein (U) [Mass/Vol]30 mg/dLAbnormalNEGATIVE/ TRACEThe [facility] HospitalComment on above:Performed By: #### URCX #### [facility] [address] [place] [address] Dr. Ramses DumasSPEC GRAVITY1.573Uclhnd0.005-<=1.025The [place] HospitalCommclaren [place] on above:Performed By: #### URCX #### [facility] [address] [place] [address] Dr. Ramses DumasUR MICRO INDINDICATEDNormalThe [facility] HospitalComment on above: Performed By: #### URCX #### [facility] [address] [place] [address] Dr. Ramses Adamsonbilinogen Qn (U)0.2 {Lucero'U}/dLNormal0.2 - 1.0The [facility] HospitalComment on above:Performed By: #### URCX #### [facility] [address] [place] [address] Dr. Ramses DumasLACTATE/LACTIC ACIDon [id number] [Moles/Vol]2.3 mmol/L Critically high0.4-1.9The [facility] HospitalComment on above:Performed By: #### URCX #### [facility] [address] [place] [address] Dr. Ramses DumasPREGNANCY URon [id number], QUALNegativeNormalNEGATIVEThe [facility] HospitalComment on above:Performed By: #### URCX #### [facility] [address] [place] [address] Dr. Ramses DumasPROF 14(COMP METB)on [id number] [Mass/Vol]3.5 g/dLNormal 3.4-5.0The [facility] HospitalComment on above:Performed By: #### URCX #### [facility] [address] [place] [address] Dr. Ramses DumasAlbumin/Globulin [Mass ratio]0.9 {ratio}NormalThe [facility] HospitalComment on above:Performed By: #### URCX #### [facility] [address] [place] [address] Dr. Ramses Conteh [Catalytic activity/Vol]92 U/VOacjwo63-819Dse [facility] HospitalComment on above:Performed By: #### URCX #### [facility] [address] [place] [address] Dr. Ramses Perez [Catalytic activity/Vol]139 U/LCritically shlw65-44Tnb [facility] HospitalComment on above:Performed By: #### URCX #### [facility] [address] [address] [address] Ramses DumasAnion gap [Moles/Vol]10.2 mmol/LNormalAkron Children'[facility] Comment on above:Performed By: #### URCX #### [facility] [address] [address] [address] Ramses DumasAST [Catalytic activity/Vol]112 U/LCritically onvv34-54Omr [facility] HospitalComment on above:Performed By: #### URCX #### [facility] [address] [place] [address] Dr. Ramses DumasBilirubin [Mass/Vol]0.2 mg/dLNormal0.2-1.0[facility] Comment on above:Performed By: #### URCX #### [facility] [address] [place] [address] Dr. Ramses DumasCalcium [Mass/Vol]8.8 mg/dLNormal8.5-10.1[facility] Comment on above:Performed By: #### URCX #### [facility] [address] [place] [address] Dr. Ramses DumasChloride [Moles/Vol]105 mmol/QHbymit10-586MlcAkron Children'S Hospital Comment on above:Performed By: #### URCX #### [facility] [address] [place] [address] Dr. Ramses DumasCO2 [Moles/Vol]26.3 mmol/URwrgcn36.0-32.0The [facility] Comment on above:Performed By: #### URCX #### [facility] [address] [place] [address] Dr. Ramses DumasCreatinine [Mass/Vol]0.95 mg/dLNormal0.55-1.02The [facility] HospitalComment on above:Performed By: #### URCX #### [facility] [address] [address] [address] Pearce ChangEGFR-AF GUAMANIAN>60Normal>=60The [facility] HospitalComment on above:Performed By: #### URCX #### [facility] [address] [address] [address] Ramses PenaGFR-NON AF GUAMANIAN>60Normal>=60The [facility] HospitalComment on above:Performed By: #### URCX #### [facility] [address] [address] [address] Ramses DumasGlobulin (S) [Mass/Vol]3.9 g/dLNormalThMemorial Health System Selby General HospitalComment on above:Performed By: #### URCX #### [facility] [address] [address] [address] Ramses DumasGlucose [Mass/Vol]137 mg/dLCritically comp63-601Ior [facility] HospitalComment on above:Performed By: #### URCX #### [facility] [address] [address] [address] Ramses DumasPotassium [Moles/Vol]3.5 mmol/LNormal3.5-5.1The [facility] Comment on above:Performed By: #### URCX #### [facility] [address] [address] [address] Ramses DumasProtein [Mass/Vol]7.4 g/dLNormal6.4-8.2The [facility] Comment on above:Performed By: #### URCX #### [facility] [address] [address] [address] Ramses DumasSodium [Moles/Vol]138 mmol/BMlnbxk824-583Pjj [facility] Comment on above:Performed By: #### URCX #### [facility] [address] [address] [address] Ramses DumasUrea nitrogen [Mass/Vol]11.0 mg/dLNormal7.0-18.0The [facility] HospitalComment on above:Performed By: #### URCX #### [facility] [address] [address] [address] Ramses DumasUrea nitrogen/Creatinine [Mass ratio]11.6 mg/mgNormalThe [facility] HospitalComment on above:Performed By: #### URCX #### [facility] [address] [address] [address] Ramses Olsen MICROSCOPIC ONLYon [id number]vqdnsSMGO SEEN [facility] on above:Performed By: #### URCX #### [facility] [address] [address] [address] Ramses Mendenhall identified Cx Nom (U)CX ALREADY ORDEREDNoWayne HealthCare Main Campus on above:Performed By: #### URCX #### [facility] [address] [place] [address] Dr. Ramses DumasCASTBLAKEE SEENNormalNONE SEENBrecksville [facility] on above:Performed By: #### URCX #### [facility] [address] [place] [address] Dr. Ramses Ahnystals LM Nom (Urine sed)NONE SEENNormalNONE SEENBrecksville [facility] on above:Performed By: #### URCX #### [facility] [address] [place] [address] Dr. Pearce ChangEpithelial cells LM Ql (Urine sed)MANYAbnormalNONE SEEN /RAREBrecksville VA / [facility] on above:Performed By: #### URCX #### [facility] [address] [place] [address] Dr. Ramses RizzoCOUSBLAKEE SEENNormalNONE SEENBrecksville [facility] on above:Performed By: #### URCX #### [facility] [address] [place] [address] Dr. Ramses DumasFrylxTYV4-67Zjgsnpch6-0UnfBrecksville VA / [facility] Hospital on above:Performed By: #### URCX #### [facility] [address] [place] [address] Dr. Ramses DumasVvkpqMZL67-55FwjebhmlDLSB SEENBrecksville VA / [facility]ille [facility] on above: Performed By: #### URCX #### [facility] [address] [place] [address] Dr. Ramses Villaseñor URINEon [id number] URINEIsolate 1 Streptococcus agalactiae >100,000 cfu/mL of ORGANISM 1 Streptococcus agalactiae ANTIBIOTIC M.I.C RX STATUS Benzylpenicillin <=0.06 S F Ampicillin <=0.25 S F Cefotaxime <=0.12 S F Ceftriaxone <=0.12 S F Levofloxacin 0.5 S F Erythromycin >=8 R F Clindamycin >=1 R F Linezolid <=2 S F Vancomycin 0.5 S F Tetracycline >=16 R FNormalThe [facility] HospitalComment on above:Performed By: #### URCX #### [facility] [address] [place] [address] Dr. Ramses DumasACETAMINOPHENon 70-69-9796Mwjpvvdzfqfbb [Mass/Vol]ug/mLCritically low10.0-30.0The [facility] HospitalComment on above:Performed By: #### URCX #### [facility] [address] [place] [address] Dr. Ramses Lemus AUTO DIFFon 41-43-4030VZAR #0.1 103/ulNormal0.0-0.1[facility] HospitalComment on above:Performed By: #### CVDTBH #### [facility] [address] [place] [address] Dr. Ramses DumasBasophils/100 WBC (Bld)0.8 %Normal0.2-2.0[facility] Comment on above:Performed By: #### CVDTBH #### [facility] [address] [place] [address] Dr. Ramses Hoskins #0.1 103/ulNormal0.0-0.7The [facility] HospitalComment on above: Performed By: #### CVDTBH #### [facility] [address] [place] [address] Dr. Ramses Penaosinophils/100 WBC (Bld)1.6 %Normal0.9-7.0[facility] Comment on above:Performed By: #### CVDTBH #### [facility] [address] [place] [address] Dr. Ramses Penarythrocyte distribution width (RBC) [Ratio]13.3 %Iwnuwi71.0-15.0 The [facility] HospitalComment on above:Performed By: #### CVDTBH #### [facility] [address] [place] [address] Dr. Ramses DumasHematocrit (Bld) [Volume fraction]40.6 %Drubpu10.0-48.0The [facility] HospitalComment on above:Performed By: #### CVDTBH #### [facility] [address] [place] [address] Dr. Ramses DumasHemoglobin (Bld) [Mass/Vol]13.2 g/bUMtngmb24.0-16.0The [facility] HospitalComment on above:Performed By: #### CVDTBH #### [facility] [address] [place] [address] Dr. Ramses Rowe #0.01 10e3/ulNormal0.00-0.03The [facility] HospitalComment on above:Performed By: #### CVDTBH #### [facility] [address] [place] [address] Dr. Ramses Rowe %0.2 %Normal0.0-0.5The [facility] HospitalComment on above: Performed By: #### CVDTBH #### [facility] [address] [place] [address] Dr. Ramses BejaranoH #2.4 103/ulNormal1.2-3.8The [facility] HospitalComment on above:Performed By: #### CVDTBH #### [facility] [address] [place] [address] Dr. Ramses Phelpsmphocytes/100 WBC (Bld)37.7 %Uqudog26.5-60.0The [facility] HospitalComment on above:Performed By: #### CVDTBH #### [facility] [address] [place] [address] Dr. Ramses HenriquezUAL DIFF REQNONormalThe [facility]a HospitalComment on above: Performed By: #### CVDTBH #### [facility] [address] [place] [address] Dr. Ramses Parisi (RBC) [Entitic mass]26.7 tzVylqzx40.7-34.0The [place] HospitalComment on above:Performed By: #### CVDTBH #### [facility] [address] [place] [address] Dr. Ramses Parisi (RBC) [Mass/Vol]32.5 g/kVXtebgz44.9-35.2The [facility] HospitalComment on above:Performed By: #### CVDTBH #### [facility] [address] [place] [address] Dr. Ramses Quinones (RBC) [Entitic vol]82.0 hMBbekrb42.0-99.0The [facility] HospitalComment on above:Performed By: #### EMERYTBH #### [facility] [address] [place] [address] Dr. Ramses Sharif #0.6 103/ulNormal0.3-0.8The [facility] HospitalComment on above:Performed By: #### CVDTBH #### [facility] [address] [place] [address] Dr. Ramses Cunhaocytes/100 WBC (Bld)8.6 %Normal1.7-12.0The [facility] Comment on above:Performed By: #### CVDTBH #### [facility] [address] [place] [address] Dr. Ramses Silva #3.3 103/ulNormal1.4-6.5The [facility] HospitalComment on above:Performed By: #### CVDTBH #### [facility] [address] [place] [address] Dr. Ramses Shelbyophils/100 WBC (Bld)51.1 %Tztfqh78.0-75.0The [facility] HospitalComment on above:Performed By: #### CVDTBH #### [facility] [address] [place] [address] Dr. Ramses DumasPlatelet mean volume (Bld) [Entitic vol]8.7 fLCritically low 9.5-13.5The [facility] HospitalComment on above:Performed By: #### CVDTBH #### [facility] [address] [place] [address] Dr. Ramses DumasPLT409 103/lbFyilsn583-624Lmj [facility] HospitalComment on above: Performed By: #### CVDTBH #### [facility] [address] [address] [address] Ramses DumasRBC4.95 106/ulNormal4.20-5.40The [facility] HospitalComment on above:Performed By: #### CVDTBH #### [facility] [address] [place] [address] Dr. Ramses DumasWBC6.4 103/ulNormal4.0-11.0The [facility] HospitalComment on above: Performed By: #### CVDTBH #### [facility] [address] [place] [address] Dr. Ramses DumasCovid-19 PCR ([facility])on 46-39-2690BZQO-CoV-2 (COVID-19) RNA FRANCESCA+probe Ql (Unsp spec)Not detectedNormalNOT DETECTEDThe [facility] Comment on above:Result Comment: When diagnostic testing is negative, the [...] for this test is supported by the [place] of Health and Human Service's declaration that circumstances exist to justify the emergency use of in vitro diagnostics for the detection and/or diagnosis of the virus that causes COVID-19. This EUA will remain in effect for the duration of the COVID-19 declaration justifying emergency of IVDs, unless it is terminated or revoked by the FDA (after which the test may no longer be used).Performed By: #### CVDTBH #### [facility] [address] [place] [address] Dr. Ramses DumasDRUG SCREEN RAPID (URINE)on [id number]U [facility] on above:Performed By: #### CBC #### [facility] [address] [place] [address] Dr. Ramses DumasBARNegativeNormalNEGWadsworth-Rittman HospitalCommclaren [place] on above: Performed By: #### CBC #### [facility] [address] [place] [address] Dr. Ramses DumasBUPNegativermnyNEGWadsworth-Rittman HospitalCommclaren [place] on above: Performed By: #### CBC #### [facility] [address] [place] [address] Dr. Ramses DumasBZONegativeHolbrookNEGWadsworth-Rittman HospitalCommclaren [place] on above: Performed By: #### CBC #### [facility] [address] [place] [address] Dr. Ramses DumasCOCNegativeTriHealth McCullough-Hyde Memorial HospitalCommclaren [place] on above: Performed By: #### CBC #### [facility] [address] [place] [address] Dr. Ramses RosenbergMagruder HospitalComment on above: Result Comment: AMP (Amphetamine): 500ng/mL, BAR (Barbituates): 200 ng/mL, BZO (Benzodiazepines): 150 ng/mL, BUP (Buprenorphine): 10 ng/mL, ODILIA (Cocaine): 150 ng/mL, mAMP (Methamphetamine): 500 ng/mL, MTD (Methadone): 200 ng/mL, OPI (Opiates): 100 ng/mL, OXY (Oxycodone): 100 ng/mL, PCP (Phencyclidine): 25 ng/mL, PPX (Propoxyphene): 300 ng/mL, THC (Cannabinoids): 50 ng/mL, TCA (Trycyclic Antidepressants): 300 ng/mLPerformed By: #### CBC #### [facility] [address] [place] [address] Dr. Ramses Sanford CUT HEADERDRUG CLASS TEST SYSTEM CUT-OFF CONCENTRATIONS ARE FOLLOWS:NormalThe [facility] HospitalComment on above:Performed By: #### CBC #### [facility] [address] [place] [address] Dr. Ramses DumasmAMPNegativeNormalNEGATIVEBrecksville [facility] on above: Performed By: #### CBC #### [facility] [address] [address] [address] Ramses DumasMTDNegativeNormalNEGATIVEAkron Children'S HospitalCommclaren [place] on above: Performed By: #### CBC #### [facility] [address] [place] [address] Dr. Ramses DumasOPINegativeNormalNEGATIVEBrecksville [facility] on above: Performed By: #### CBC #### [facility] [address] [place] [address] Dr. Ramses DumasOXYNegativeNormalNEGATIVEAkron Children'S HospitalCommclaren [place] on above: Performed By: #### CBC #### [facility] [address] [place] [address] Dr. Ramses DumasPCPNegativeNormalNEGATIVEBrecksville [facility] on above: Performed By: #### CBC #### [facility] [address] [place] [address] Dr. Ramses DumasPPXNegativeNormalNEGATIVEBrecksville [facility] on above: Performed By: #### CBC #### [facility] [address] [place] [address] Dr. Ramses DumasTCANegativeNormalNEGATIVEAkron Children'S HospitalCommclaren [place] on above: Performed By: #### CBC #### [facility] [address] [place] [address] Dr. Ramses DumasTHCNegativeNormalNEGATIVEBrecksville [facility] on above: Performed By: #### CBC #### [facility] [address] [place] [address] Dr. Pearce ChangER URINE PROFILEon 02-55-2458Pjvjskhvg Ql (U)NegativeNormal NEGATIVEAkron Children'S HospitalComment on above:Performed By: #### CBC #### [facility] [address] [address] [address] Ramses DumasClarity (U)CLEARNormalCLEARAkron Children'S HospitalComment on above: Performed By: #### CBC #### [facility] [address] [address] [address] Ramses Francis (U)LT. YELLOWNormalYELLOWAkron Children'S HospitalComment on above:Performed By: #### CBC #### [facility] [address] [address] [address] Ramses Lizarraga micrscopic examination will be performed if indicated. NormalAkron Children'S HospitalComment on above:Performed By: #### CBC #### [facility] [address] [place] [address] Dr. Ramses DumasGlucose Ql (U)NegativeNormalNEGATIVEAkron Children'S HospitalComment on above:Performed By: #### CBC #### [facility] [address] [address] [address] Ramses DumasHemoglobin Ql (U)LARGEAbnormalNEGWadsworth-Rittman Hospital Comment on above:Performed By: #### CBC #### [facility] [address] [place] [address] Dr. Ramses DumasKetones Ql (U)NegativeNormalNEGATIVEAkron Children'S HospitalComment on above:Performed By: #### CBC #### [facility] [address] [address] [address] Ramses DumasLEUKOCYTESLARGEAbnormalNEGWadsworth-Rittman HospitalCommclaren [place] on above:Performed By: #### CBC #### [facility] [address] [address] [address] Ramses DumasNitrite Ql (U)PositiveAbnormalNEGWadsworth-Rittman Hospital Comment on above:Performed By: #### CBC #### [facility] [address] [address] [address] Ramses DumaspH (U)6.0 [pH]Normal5-9The [facility] HospitalComment on above: Performed By: #### CBC #### [facility] [address] [place] [address] Dr. Ramses DumasProtein (U) [Mass/Vol]30 mg/dLAbnormalNEGATIVE/ TRACEThe [facility] HospitalComment on above:Performed By: #### CBC #### [facility] [address] [place] [address] Dr. Ramses DumasSPEC GRAVITY>=1.771Jhiubdcg0.005-<=1.025The [facility] Comment on above:Performed By: #### CBC #### [facility] [address] [place] [address] Dr. Ramses Carrasco MICRO INDINDICATEDNoAultman Alliance Community HospitalComment on above: Performed By: #### CBC #### [facility] [address] [place] [address] Dr. Ramses Adamsonbilinogen Qn (U)0.2 {Lucero'U}/dLNormal0.2 - 1.0The [facility] HospitalComment on above:Performed By: #### CBC #### [facility] [address] [place] [address] Dr. Ramses Price (BLD ALC)on 40-16-0659WZR NOTENOTE: 80 mg/dl is the legal limit for a blood alcohol levelNoAultman Alliance Community HospitalComment on above: Performed By: #### BLDCX2 #### [facility] [address] [place] [address] Dr. Ramses Rappanol [Mass/Vol]mg/dLNoAultman Alliance Community HospitalComment on above:Performed By: #### BLDCX2 #### [facility] [address] [place] [address] Dr. Ramses DumasPREGNANCY URon 36-87-6802WBZUNHVJW, QUALNegativeNormalNEGATIVEThe [facility] HospitalComment on above:Performed By: #### CBC #### [facility] [address] [place] [address] Dr. Ramses Schmid 14(COMP METB)on 60-32-1367Buvvjna [Mass/Vol]3.8 g/dLNormal 3.4-5.0The [facility] HospitalComment on above:Performed By: #### URCX #### [facility] [address] [address] [address] Ramses DumasAlbumin/Globulin [Mass ratio]0.9 {ratio}NormalThe [facility] HospitalComment on above:Performed By: #### URCX #### [facility] [address] [address] [address] Ramses WinklerP [Catalytic activity/Vol]82 U/RXvfnof40-208Uon [facility] HospitalComment on above:Performed By: #### URCX #### [facility] [address] [address] [address] Ramses WinklerT [Catalytic activity/Vol]41 U/XOgnpog23-99Dep [facility] HospitalComment on above:Performed By: #### URCX #### [facility] [address] [address] [address] Ramses Matson gap [Moles/Vol]9.3 mmol/LNormalThe [facility] HospitalComment on above:Performed By: #### URCX #### [facility] [address] [address] [address] Ramses DumasAST [Catalytic activity/Vol]21 U/SJbpooc05-88Wtc [facility] HospitalComment on above:Performed By: #### URCX #### [facility] [address] [address] [address] Ramses DumasBilirubin [Mass/Vol]0.3 mg/dLNormal0.2-1.0The [facility] Comment on above:Performed By: #### URCX #### [facility] [address] [address] [address] Ramses DumasCalcium [Mass/Vol]8.9 mg/dLNormal8.5-10.1The [facility] Comment on above:Performed By: #### URCX #### [facility] [address] [address] [address] Ramses DumasChloride [Moles/Vol]105 mmol/QTurllz59-660Pku [facility] Comment on above:Performed By: #### URCX #### [facility] [address] [address] [address] Ramses DumasCO2 [Moles/Vol]28.5 mmol/IWnznsr29.0-32.0The [facility] Comment on above:Performed By: #### URCX #### [facility] [address] [address] [address] Ramses DumasCreatinine [Mass/Vol]0.81 mg/dLNormal0.55-1.02The [facility] HospitalComment on above:Performed By: #### URCX #### [facility] [address] [address] [address] Pearce ChangEGFR-AF GUAMANIAN>60Normal>=60The [facility] HospitalComment on above:Performed By: #### URCX #### [facility] [address] [address] [address] Ramses PenaGFR-NON AF GUAMANIAN>60Normal>=60The [facility] HospitalComment on above:Performed By: #### URCX #### [facility] [address] [address] [address] Ramses DumasGlobulin (S) [Mass/Vol]4.1 g/dLNormalThe [facility] HospitalComment on above:Performed By: #### URCX #### [facility] [address] [address] [address] Ramses DumasGlucose [Mass/Vol]100 mg/dIEzsjio29-217Ksm [facility] Comment on above:Performed By: #### URCX #### [facility] [address] [address] [address] Ramses DumasPotassium [Moles/Vol]3.8 mmol/LNormal3.5-5.1The [facility] Comment on above:Performed By: #### URCX #### [facility] [address] [address] [address] Ramses DumasProtein [Mass/Vol]7.9 g/dLNormal6.4-8.2The [facility] Comment on above:Performed By: #### URCX #### [facility] [address] [address] [address] Ramses DumasSodium [Moles/Vol]139 mmol/FIatfdr886-856Oct [facility] Comment on above:Performed By: #### URCX #### [facility] [address] [address] [address] Ramses DumasUrea nitrogen [Mass/Vol]10.0 mg/dLNormal7.0-18.0The [facility] HospitalComment on above:Performed By: #### URCX #### [facility] [address] [place] [address] Dr. Ramses [place] nitrogen/Creatinine [Mass ratio]12.3 mg/mgNoAultman Alliance Community HospitalComment on above:Performed By: #### URCX #### [facility] [address] [place] [address] Dr. Ramses DumasSALICYLATEon 30-75-1802SXHXWNLMEA<2.8Normal<=19.9The [facility] HospitalComment on above:Performed By: #### URCX #### [facility] [address] [address] [address] Ramses Olsen MICROSCOPIC ONLYon 65-22-0380ZALZSAHWYUJRUAmmkckjwXNSH SEEN The [facility] HospitalComment on above:Performed By: #### CBC #### [facility] [address] [place] [address] Dr. Ramses uDmasBactjesse identified Cx Nom (U)INDICATEDNoAultman Alliance Community HospitalComment on above:Performed By: #### CBC #### [facility] [address] [place] [address] Dr. Ramses Hidalgo OX CRYSTALSRARENormalThe [facility] HospitalComment on above: Performed By: #### CBC #### [facility] [address] [address] [address] Ramses Hays SEENNormalNONE SEENBrecksville VA / [facility] on above:Performed By: #### CBC #### [facility] [address] [address] [address] Ramses DumasCrystals LM Nom (Urine sed)SEENAbnormalNONE SEENBrecksville VA / [facility]ille [facility] on above:Performed By: #### CBC #### [facility] [address] [address] [address] Ramses Peñathelial cells LM Ql (Urine sed)MODERATEAbnormalNONE SEEN /RARE [facility] on above:Performed By: #### CBC #### [facility] [address] [place] [address] Dr. Ramses DumasMUCOUSNEELA SEENHolbrookNONE SEENBrecksville VA [facility] on above:Performed By: #### CBC #### [facility] [address] [place] [address] Dr. Ramses DumasQhvwfROX73-15Yjmtdxca6-6HltBrecksville VA [facility] on above: Performed By: #### CBC #### [facility] [address] [place] [address] Dr. Ramses DumasBqtdvFPE76-91DbmklqlkWIUR SEENBrecksville VA / [facility] on above: Performed By: #### CBC #### [facility] [address] [place] [address] Dr. Ramses Peñalozap IG,rfx Aptima HPV all pthon 08-09-2022..NormalThe [facility] on above:Performed By: #### CMP #### [facility] [address] [place] [address] Dr. Ramses DumasDIAGNOSIS:CommentAbCherrington Hospital on above: Result Comment: EPITHELIAL CELL ABNORMALITY. LOW GRADE SQUAMOUS INTRAEPITHELIAL LESION (LSIL).Performed By: #### CMP #### [facility] [address] [place] [address] Dr. Pearce ChangElectronically signed by:CommentACMC Healthcare System Comment on above:Result Comment: Ashtyn Joseph MD, PathologistPerformed By: #### CMP #### [facility] [address] [place] [address] Dr. Ramses DumasHPPrashanth AptimaNegativeNormalNegativeBrecksville VA / [facility] on above:Result Comment: This nucleic acid amplification test detects fourteen high-risk HPV types (16,18,31,33,35,39,45,51,52,56,58,59,66,68) without differentiation.Performed By: #### CMP #### [facility] [address] [place] [address] Dr. Ramses DumasMethodology:CommentAshtabula County Medical Center on above: Result Comment: This liquid based ThinPrep(R) pap test was screened with the use of an image guided system.Performed By: #### CMP #### [facility] [address] [place] [address] Dr. Ramses DumasNote:CommentNoWayne HealthCare Main Campus on above:Result Comment: The Pap smear is a screening test designed to aid in the detection of premalignant and malignant conditions of the uterine cervix. It is not a diagnostic procedure and should not be used as the sole means of detecting cervical cancer. Both false-positive and false-negative reports do occur. .Performed By: #### CMP #### [facility] [address] [place] [address] Dr. Ramses DumasPathologist Provided ELN50XbbehzhZyvmmjDaeACMC Healthcare System Comment on above:Result Comment: [id number] By: #### CMP #### [facility] [address] [place] [address] Dr. Ramses DumasPerformed by:CommentAshtabula County Medical Center on above: Result Comment: Rad Ruano, Driver Starting Gate (ASCP)Performed By: #### CMP #### [facility] [address] [place] [address] Dr. Ramses DumasReflex Criteria:CommentAshtabula County Medical Center on above:Result Comment: See below for HPV testing results. .Performed By: #### CMP #### [facility] [address] [place], [place] [address] Dr. Ramses DumasSpecimen adequacy:CommentNoAultman Alliance Community HospitalComment on above:Result Comment: Satisfactory for evaluation. Endocervical and/or squamous metaplastic cells (endocervical component) are present.Performed By: #### CMP #### [facility] [address] [place], [place] [address] Dr. Ramses Dumas Vital Signs Date TimeVital SignValuePerforming JsmliuyxwIygsfwxm91-67-6459 13:06-0400Body mass index (BMI) [Ratio]29.86 kg/e1GprszSalem Hospital Work Phone: [phone])763-[address] [place], [place] [address]Szskwwtbpa33-30-6777 13:06-0400Body .92 kgCoreSalem Hospital Work Phone: [phone] [place], [place] [address]Vnwreiqxgu08-50-8462 13:06-0400Diastolic blood blytklil50 mm[Hg][facility] Work Phone: [phone] [place], [place] [address]Bqhqvmfnew35-12-1213 13:06-0400Systolic blood bbccycck286 mm[Hg][facility] Work Phone: [phone])310-[address] [place], [place] [address]Xreyobwnjp27-56-1364 09:23-0400Body temperature 98.1 [degF]Luis Felipe Delacruz MD Work Phone: [facility]04-13-2025 09:23-0400Diastolic blood njppokgs13 mm[Hg]Luis Felipe Delacruz MD Work Phone: Bon [facility] CenterCPA [facility] CenterMfkblt53-74-4236 09:23-0400Heart rate81 /Jeevan Delacruz MD Work Phone: Bon [place] [address]-13-2025 09:23-0400 Respiratory rate18 /minLuis Felipe Delacruz MD Work Phone: [facility]04-13-2025 09:23-1023RmP4% (BldA) [Mass fraction]100 %Luis Felipe Delacruz MD Work Phone: B[facility]04-13-2025 09:23-0400Systolic blood xzppoutv886 mm[Hg]Luis Felipe Delacruz MD Work Phone: R[facility]04-13-2025 06:00-0400Body mass index (BMI) [Ratio]29.01 kg/g5DkoajhioLuis Felipe Delacruz MD Work Phone: C[facility]04-13-2025 06:00-0400Body epalxa77.5 kgMosushil Delacruz MD Work Phone: [phone]-Shraddha5[facility]04-11-2025 10:01-0400Body rcujbx679.6 cmLuis Felipe Delacruz MD Work Phone: [phone]-[facility]04-06-2025 11:49-0400Body jiwpmvamsvw24.7 [degF]Luis Felipe Delacruz MD Work Phone: [phone]-[facility]04-06-2025 11:49-0400Diastolic blood mm[Hg]Luis Felipe Delacruz MD Work Phone: Mari [facility]04-06-2025 11:49-0400Heart rate54 /Jeevan Delacruz MD Work Phone: K[facility]04-06-2025 11:49-0400 Respiratory rate15 /Jeevan Delacruz MD Work Phone: [facility]04-06-2025 11:49-7551IhN6% (BldA) [Mass fraction]98 %Luis Felipe Delacruz MD Work Phone: [facility]04-06-2025 11:49-0400Systolic blood qlmyqqaj995 mm[Hg]Luis Felipe Delacruz MD Work Phone: [facility] ServicesCareerImp Nqfxhc25-73-6273 23:45-0400Body iemumt097.6 cmLuis Felipe Delacruz MD Work Phone: Bon [facility] CenterCPA Exchange [facility] SystemFedora PharmaceuticalsJctggr60-34-3952 23:45-0400Body mass index (BMI) [Ratio]28.23 kg/o8EomewomaLuis Felipe Delacruz MD Work Phone: bon [facility]04-05-2025 23:45-0400Body .3 kgLuis Felipe Delacruz MD Work Phone: [facility]06-23-2024 07:30-0400Body [degF]MD Domingo Snyder Work Phone: 1(002)372-[address] [place], [place] 2294906-23-2024 07:30-0400 Diastolic blood mm[Hg]MD Domingo Snyder Work Phone: [phone]06-23-2024 07:30-0400 Heart rate75 /minMD Domingo Snyder Work Phone: [phone]06-23-2024 07:30-0400 Respiratory rate16 /minMD Domingo Snyder Work Phone: [phone])[address]06-23-2024 07:30-0400 SaO2% (BldA) [Mass fraction]100 %MD Domingo Snyder Work Phone: [phone])[address] [place], [place] 6465906-23-2024 07:30-0400 Systolic blood npilwifq513 mm[Hg]MD Domingo Snyder Work Phone: [phone])[address] [place], [place] 6465906-21-2024 22:44-0400 Body .64 cmMD Domingo Snyder Work Phone: 1(549)174-[address] [place], [place] 2294906-21-2024 22:44-0400 Body .58 kgMD Domingo Snyder Work Phone: [phone]06-02-2023 10:30-0400 Blood Pressure LocationPatricjada RAYGOZA [facility]06-02-2023 10:30-0400Diastolic blood mawnfvln68 mm[Hg]Nona RAYGOZA [facility]06-02-2023 10:30-0400Heart rate80 /minParavindra RAYGOZA [facility]06-02-2023 10:30-0400Respiratory rate16 /minNona RAYGOZA [facility]06-02-2023 10:30-0400Systolic blood cdamfuzk298 mm[Hg]Nona RAYGOZA [facility] Encounters Encounter DateEncounter TypeCare ProviderFacilityStart: 35-33-4607kgrzfwkqyg Donohue Talal SarminiFacility:[facility] DHStart: 33-90-8130dvphqxlnig Donohue SarminiFacility:[facility] DHStart: 84-73-4498hnobfbjibiZmoiouwx SarminiFacility:[facility] Centertart: 05-29-2025 End: 80-16-8770Jenrkd follow up visit related to original pxPatrick Leiva MD Work Phone: no [place] DermatologyComment on above:Encounter for removal of sutures (Primary Dx)Start: 05-29-2025 End: 45-32-8822Kfzwrn Maury Leiva MD Work Phone: noMS Saeed DermatologyStart: 05-29-2025 End: 79-47-3841Jbjnig Maury Leiva MD Work Phone: noMS Saeed DermatologyStart: 05-15-2025 End: 84-31-9773Mulngxi encounter procedureEmglenn Leiva MD Work Phone: noms [place] DermatologyComment on above:Neoplasm of unspecified behavior of bone, soft tissue, and skin (Primary Dx)Start: 05-15-2025 End: 12-86-0900ysenyqrsxvIBCYM A PETITTINot AvailableStart: 05-05-2025 End: 93-01-9825mrnehatygaBbyu E [facility] Work Phone: Start: 05-05-2025 End: 09-51-3101Ybmqezzv Shannan Fraire DO-LAB Path Spec [facility] HospStart: 04-24-2025 End: 33-61-5157Zjiqbdzeina Leiva MD Work Phone: noms [facility] DERMStart: 04-24-2025 End: 30-06-5467Vihnkcodilia Leiva MD Work Phone: noms SWS DERMStart: 04-24-2025 End: 98-53-7997Hkzakj follow up visit related to original Dotty Leiva MD Work Phone: noms [facility] DERMComment on above:Encounter for removal of sutures (Primary Dx)Start: 04-24-2025 End: 00-39-7484shzuhnjofbWJLVT A PETITTINot AvailableStart: 04-10-2025 End: 17-79-5297Bhbdbbodilia Leiva MD Work Phone: noms [facility] DERMStart: 04-10-2025 End: 67-07-8881Esgwalodilia Leiva MD Work Phone: noms [facility] DERMStart: 04-10-2025 End: 31-00-9603[place] outpatient new 20 minutesPatrick Leiva MD Work Phone: noms [facility] DERMComment on above:Hordeolum externum of right upper eyelid (Primary Dx); Neoplasm of unspecified behavior of bone, soft tissue, and skinStart: 04-10-2025 End: 49-73-6614geltrabfkqOWAHW A PETITTINot AvailableStart: 04-05-2025 End: 04-68-7788Cbgvvw flowsheetCorey Bernie DO Work Phone: noms BCP OBStart: 04-05-2025 End: 99-32-5091Xkqspw flowsheetCorey Bernie DO Work Phone: noms BCP OBStart: 04-05-2025 End: 55-27-1919Chweoybmr Result EncounterCorey Bernie DO Work Phone: noms External Department UnsolicitedStart: 04-05-2025 End: 62-16-3651Xzuqsah encounter procedureCorey Bernie DO Work Phone: noms HealthcareStart: 04-05-2025 End: 16-15-7142Nksnaeth preventive med est patient 18-39 yrsCorey Bernie DO Work Phone: noms BCP OBComment on above:Well woman exam with routine gynecological exam; H/O: hysterectomy; Night sweatsStart: 04-05-2025 End: 81-87-5583tdgzmzmqgpWGWUZ TRISTONONot AvailableStart: 03-16-2025 End: 41-31-1752bonmhlqebuDqsoexm J Buckcility:[facility] Centertart: 01-26-2025 End: 41-20-0483Pebocdiurg and management of inpatientMosushil Delacruz MD Work Phone: stvz Renal//Med SurgComment on above:Bilateral ureteral calculi; Acute postoperative painStart: 81-05-5982Lkqgakebq department patient visit DOMINGO SNYDERMulticare Healthity:[facility] Centertart: 01-21-2025 End: 35-59-2500Fqfrtdxonp and management of inpatientMosushil Delacruz MD Work Phone: stvz 3C MED SURGComment on above:Acute postoperative pain (Primary Dx); Renal calculus, leftStart: 01-21-2025 End: 88-80-9637yswxwhierkWelciyv M Hoy MD Work Phone: [facility] Work Phone: Start: 01-21-2025 End: 61-14-0956Kdrefvqn ReferredDomingo Snyder MD Work Phone: [facility]-LAB Path Spec [place] HospStart: 01-17-2025 End: 56-41-7189xkvugsjmnvRUTRLWC M HOYMercy George L. Mee Memorial Hospitaltart: 01-17-2025 End: 13-44-7210Ubagplrmxv hospital visit by physicianStprashanth Shi Rn [facility] Special ProceduresComment on above:ArrivedVUR (vesicoureteric reflux)Start: 01-05-2025 End: 40-69-9553jrgtwzkrswOSQCFIG [place]Healthtart: 12-02-2024 End: 97-36-3385gztptakjweXgchvmg M Hoy MD Work Phone: [facility] Work Phone: Start: 12-02-2024 End: 88-19-0057Voapgolb ReferredDomingo Snyder MD Work Phone: [facility]-LAB Path Spec [facility] HospStart: 06-16-2024 End: 21-80-8625keuasrhmvuItlhliVgzfi: 74-99-9633Xwh-patient / Non-visitMD Domingo Lillian Work Phone: [facility] Work Phone: Start: 04-08-2024 End: 76-98-5005Ajgkxhubhx and management of inpatientMD Domingo Snyder Work Phone: [facility]-[address] [place] [address] Work Phone: Start: 12-29-2023 End: 84-41-6604Szpzykbmy Result EncounterCorey Bernie DO Work Phone: noms External Department UnsolicitedStart: 12-29-2023 End: 00-06-0861Splwdvvem Result EncounterCorey Bernie DO Work Phone: noms External Department UnsolicitedStart: 12-23-2023 End: 75-63-9000Qlsyatdxe Result EncounterTamiko MADDOX Work Phone: noms External Department UnsolicitedStart: 12-23-2023 End: 48-86-9265Dmqhgwuxk Result EncounterTamiko MADDOX Work Phone: noms External Department UnsolicitedStart: 12-04-2023 End: 51-70-9375Zzinmym encounter procedurePatricjada Turner [employer] [facility] start: 04-10-2023 End: 10-80-7162Sdpyhzp encounter statusCorey Bernie DO Work Phone: [facility] HealthcareStart: 03-20-2023 End: 32-22-6405Rqcpvul encounter procedurePatricjada [employer] [facility] start: 02-16-2023 End: 30-33-7407mhegahzqksMQ DOMINGO HOY .Facility:Q3Hnjml: 02-02-2023 End: 52-29-9695udtonyjqriPI DOMINGO HOY .Facility:I3Zqflq: 12-26-2022 End: 44-04-3455Vudxicx encounter procedureParavindra [employer] [facility] start: 12-16-2022 End: 54-36-7185qpapnmwvekYM NONA RAYGOZA .Facility:Q2Odsbg: 12-15-2022 End: 93-28-0647wqqrqeaqttWX NONA RAYOGZA .Facility:N1Fggng: 11-27-2022 ambulatoryDR DOMINGO HOY .Facility:H7Eukly: 11-07-2022 End: 54-74-7097dnldqwwhbrAS DOMINGO HOY .Facility:M0Eivmo: 49-95-5922Etbzuwuma for preprocedural cardiovascular examinationDR JEFFERSON BERNIE .[facility] HospitalStart: 04-75-2658Zgwbgbddc for preprocedural laboratory examinationDR JEFFERSON BERNIE .[facility] HospitalStart: 11-03-2022 End: 66-69-5765Zvkqnlqwn for preprocedural cardiovascular examinationDR DOMINGO HOY .Facility:X8Gasgt: 11-03-2022 End: 08-30-5235aoehrseaejLS DOMINGO HOY .Facility:M4Wpnwo: 81-66-5353Hfajgdyny for preprocedural laboratory examinationDR NONA RAYGOZA .[facility] Start: 09-18-2022 End: 67-57-7427dvszrbjdjsCR NONA RAYGOZA .Facility:A1Aeqnk: 09-16-2022 End: 88-19-7013wmrruhxewsIW NONA RAYGOZA .Facility:E9Fkdtp: 09-16-2022 End: 38-34-6592Pzyjsbmlz for preprocedural laboratory examinationDR NONA RAYGOZA .Facility:S6Wvspb: 09-05-2022 End: 02-91-0870rbmmhjuwcsWLDTPX RODRIGUEZ .Facility:C1Obdyf: 09-04-2022 End: 41-40-7023dbnkqiasnhOFMLR M DUNCANFacility:[facility] Hospitaltart: 09-04-2022 End: 42-56-9290hxnlrnpgdaCeunyGayathri Montgomery APRN.LIFE ASSURANCE REPRESENTATIVE Work Phone: UrologyComment on above:NO SHOW (Primary Dx)Start: 09-04-2022 End: 23-78-1766Mhzhucdlkogy consultation with Gerhard Montgomery APRN.LIFE ASSURANCE REPRESENTATIVE Work Phone: [facility]tart: 08-28-2022 End: 31-26-0586cvyzbrxqzxCR ERWIN SAWYERFacility:J1Zshsk: 08-22-2022 End: 46-40-3162exhgivvrmrLT DOMINGO SNYDER .Facility:Q0Jmuhc: 08-13-2022 End: 66-07-8256qjaeygsbviKVQGQL RODRIGUEZ .Facility:D2Eisoq: 20-59-8552Ctjutwoom for cervical smear to confirm findings of recent normal smear following initial abnormal smearDR JEFFERSON GIBBS .[facility]tart: 07-30-2022 End: 61-67-0123usvcmdlwhgTF DOMINGO HOY .Facility:R3Yntxo: 07-30-2022 End: 10-62-8109Mdgnhurib for cervical smear to confirm findings of recent normal smear following initial abnormal smearDR DOMINGO HOY .Facility:B6Oltwa: 07-02-2022 End: 60-92-3476xigbzcxotjLW DOMINGO HOY .Facility:H1 Procedures DateProcedureProcedure DetailPerforming ClinicianStart: 91-54-4663PHFU EXCISION Patrickglenn Leiva MD Work Phone: Start: 13-72-9816CCGT REPAIREmglenn Leiva MD Work Phone: Start: 04-10-2025 End: 78-65-4638RGMZ / NAIL BIOPSYEmglenn Leiva MD Work Phone: Start: 07-22-2964ENT,APTIMA HPV,AGE GDLNCorey Bernie DO Work Phone: Start: 56-62-8944Zmagtmsefqw during operationSalekassidy Espino MD Work Phone: Start: 16-34-7535Ihrbanb bacterial quanttative colony count urineSaleem Germain Espino MD Work Phone: Start: 81-97-9102RQCWIIZ, BLOOD 1Mohammad Mashaleh DO Work Phone: Start: 68-82-3875PRGXNNS, BLOOD 1Mohammad Mashaleh DO Work Phone: Start: 45-37-3924Fmqsi metabolic panel calcium total Kyung Miester [employer] Work Phone: Start: 70-53-6551Rqjqv metabolic panel calcium total Glen Desai MD Work Phone: Start: 51-52-3091Ghcruqc bacterial quanttative colony count urineMosushil Delacruz MD Work Phone: Start: 01-88-2279Igili dip stick/tablet rgnt auto w/o microscopyDanichol Desai MD Work Phone: Start: 46-08-7424Dhqtx of lactateRobin Adria BORDEN Work Phone: Start: 17-59-0534WCJQBFLJ SPECIMENMohammad Sesarmercy healthsanjay DO Work Phone: Start: 09-42-5649Bdaioygxyvx during operationSurendra Salinas MD Work Phone: Start: 63-33-6506Apxsd metabolic panel calcium total Zia [place]ovington MD Work Phone: Start: 84-42-8152Xdwgsrriekdleixkwr voiding rs&i Adonis Guerra MD Work Phone: Start: 23-55-8510Dlcrd Aroldo Snyder MD Work Phone: Start: 16-48-1554GJ POST BIOPSY LTCorey Bernie DO Work Phone: Start: 06-67-4152FY GUIDED BREAST BIOPSY LTCorey Bernie DO Work Phone: Start: 55-84-9276QT TOMOSYNTHESIS DIAGNOSTIC Flaca MADDOX Work Phone: Start: 33-92-6126NE BREAST LT LIMITEDCorey Bernie DO Work Phone: Start: 83-01-7543Tetjdkoyvkx laser lithotripsy of ureteric calculusPatrick [employer] Start: 50-45-1918Dqfrxnoemch insertion of ureteric stentPatrick RAYGOZA Start: 41-55-2523ReilfrpxccwkKlojutq RAYGOZA Start: 37-44-1153KcqnvmikjylsCcnqhxu RAYGOZA Comment on above:leftStart: 07-20-7552Mabzxkkjwnf insertion of ureteric stentPatrick RAYGOZA Start: 14-71-8478Omzubppvlhhrvsyaa with dilation of urethral stricturePatrick RAYGOZA Start: 08-66-7609FpjovecytmwwmluUmntjet RAYGOZA H/O: hysterectomyH/O: hysterectomyCorey Bernie DO Work Phone: Plan of Treatment DateCare ActivityDetailAuthorStart: 27-98-9232LLfL/Tdap/Td vaccine (7 - Td or Tdap)DTaP/Tdap/Td vaccine (7 - Td or Tdap)[facility]: [facility] End: 53-54-7024Woqbeth encounter ymzeofvwy05/11/2026 1:15 PM EDT Office Visit [facility] [place] [facility] [address] [place] [phone] Patrick Leiva MD [address] [place] [address] [facility] [place] [facility]atologyStart: 04-09-2026 End: 12-82-5651Pfbynio encounter procedureNOMS BCP OBStart: 05-29-2025 End: 08-04-5472Xbuznkj encounter procedureNOMS [place]ad[place] DermatologyComment on above:ArrivedStart: 10-13-7373Zwiuduqaa vaccinationFlu vaccine (Season Ended)[facility]: 05-15[facility]20[facility] End: 98-97-4143Zzulxuk encounter kdmlurrae22/28/2025 3:30 PM EDT Office Visit [facility] [address] [place] [phone] Patrick Leiva MD [address] [place] [address] [facility] SWS DERMStart: 79-95-9506Zdhxk culturePomerene Hospitaltart: 10-00-4014Eptvbiwq identified in Urine by Culture [facility]rine [facility] Hospitaltart: 04-24-2025 End: 72-23-0826Vszbuyu encounter procedureNOMS SWS DERMComment on above:Arrived Start: 04-10-2025 End: 20-41-6607Cxblvat encounter procedureNOMS SWS DERMComment on above:Arrived Start: 04-05-2025 End: 18-59-9895Kqmlcig encounter imkguxmtm04/18/2025 1:00 PM EDT Office Visit [facility] [address] [place] [phone] Jefferson Gibbs, DO [address] [place], [place] [id number] [facility] OBComment on above:ArrivedStart: 01-22-2025 End: 07-44-2476EEBNLPENBI URETERAL STENT INSERTIONCYSTOSCOPY URETERAL STENT INSERTION Renal calculus, left 01/22/2025 9:28 AM [facility] Hospitaltart: 14-69-9386Noytk [facility] Hospitaltart: 14-15-3244Sqktpfjk identified in Urine by CultureUrine CulturePomerene Hospitaltart: 94-39-9464Uthzy [facility] Start: 79-88-7453Xlitlxnu identified in Urine by CultureUrine [facility] Hospitaltart: 01-08-9873DKBYZ-19 Vaccine ( season) COVID-19 Vaccine ( season)[facility]Start: 04-10-2024 [facility] Hospitaltart: 78-44-2502Dfhasevp to Rag Baler [facility] Hospitaltart: 06-88-7138Kaebjnbl admissionPomerene Hospitaltart: 73-33-3686QdopdpmmyPomerene Hospitaltart: 68-43-6256Iswxjkzxu vaccinationINFLUENZA (#1)[facility] Hospitaltart: 10-19-2021 DEPRESSION ASSESSMENTDEPRESSION ASSESSMENTWilson Memorial Hospitaltart: 10-26-7495FZY TESTINGHPV TESTINGWilson Memorial Hospitaltart: 81-06-1828Riteutkme for malignant neoplasm of cervixSentara Princess Anne Hospitalart: 02-51-7612UOJ TESTINGPAP TESTINGWilson Memorial Hospitaltart: 52-80-8278Dumafyinv for malignant neoplasm of cervixPap smearChildren's Hospital of The King's Daughters: 97-84-9463Agkme microalbumin profileDTAP,TDAP,TD (1 - Tdap)[facility] Hospitaltart: 87-25-8490QSMHZFAGA C SCREENINGHEPATITIS C SCREENINGWilson Memorial Hospitaltart: 10-76-3437Xoajyhcsh C screeningHepatitis C screenSentara Careplex HospitalStart: 91-90-2984CFX SCREENINGHIV SCREENINGWilson Memorial Hospitaltart: 39-38-6996EQK screeningHIV screen [facility] HospitalStart: 12-79-7505Asvochidj vaccine (1 of 2 - 13+ 2-dose series)Varicella vaccine (1 of 2 - 13+ 2-dose series)[facility] Start: 92-80-7257Ajuxybvjfq ScreenDepression ScreenSentara Careplex Hospital Start: 91-46-0723Zpino vaccine (4 of 4 - 4-dose series)Polio vaccine (4 of 4 - 4-dose series)[facility] HospitalStart: 76-73-1503NDODP-19 VACCINE (#1) COVID-19 VACCINE (#1)[facility] Hospitaltart: 87-89-0364WICUHPEEI B (1 of 3 - 3- dose series)HEPATITIS B (1 of 3 - 3-dose series)[facility] End: 68-12-4496Ipwch metabolic 2000 panel - Serum or PlasmaBasic metabolic panel Lab Routine Daily for 3 Days starting 01/22/2025 until 01/24/2025, 1 completed [facility] on above:Daily for 3 Days starting 01/22/2025 until 01/24/2025, 1 completed End: 03-14-0360IUP W Auto Differential panel - BloodCBC with Auto Differential Lab Routine Daily for 3 Days starting 01/22/2025 until 5BSent[facility] on above:Daily for 3 Days starting 01/22/2025 until 5Culture, Blood 1[facility] CenterCulture, UrineBon [facility] on above:Release Upon Ordering for 1 Occurrences starting 01/22/2025ytology Cervical or vaginal smear or scraping studyPap Smear Pathology and Cytology Routine Well woman exam with routine gynecological exam Ordered: 04/05/2025DOCUSYSVA [employer] Work Phone: comment on above:Ordered: 04/05/2025Dermatopathology examDermatopathology exam Pathology and Cytology Timed Neoplasm of unspecified behavior of bone, soft tissue, and skin Release Upon Ordering for 1 Occurrences starting 04/10/2025[facility] [employer] Work Phone: comment on above:Release Upon Ordering for 1 Occurrences starting 06/23/2025Dermatopathology examDermatopathology exam Pathology and Cytology Timed Neoplasm of unspecified behavior of bone, soft ti ssue, and skin Release Upon Ordering for 1 Occurrences starting 05/15/2025[facility] [employer] Work Phone: comment on above:Release Upon Ordering for 1 Occurrences starting 05/15/2025 End: 86-01-2503Xerepnb [Mass/volume] in Serum or PlasmaPOCT Glucose Point of Care Testing Routine One Time for 1 Occurrences starting 01/22/2025 until [employer] Work Phone: Comment on above:One Time for 1 Occurrences starting 01/22/2025 until 01/22/2025Human papilloma virus DNA [Presence] in Unspecified specimen by Probe with amplificationHPV DNA probe, amplified Microbiology Routine Well woman exam with routine gynecological exam Ordered: 04/05/2025[facility] DinetouchComment on above:Ordered: 04/05/2025Oxygen therapy [Minimum Data Set] Initiate Oxygen Therapy Protocol Respiratory Care Routine As Needed until discontinued starting [facility]/21[facility]2025 [facility]:As Needed until discontinued starting 01/21/2025Oxygen therapy [Minimum Data Set] Initiate Oxygen Therapy Protocol Respiratory Care Routine As Needed until discontinued starting 01/26/2025 [facility] above:As Needed until discontinued starting 01/26/2025Patient EducationBipolar Disorder (DC) [facility] Behavioral Health DC Instructions Know your [facility] Work Phone: Patient [facility] Work Phone: End: [phone] AnalysisStone Analysis Microbiology Routine One Time for 1 Occurrences starting 01/22/2025 until 01/22/2025 [facility] Work Phone: commcrw on above:One Time for 1 Occurrences starting 01/22/2025 until 01/22/2025Stone AnalysisStone Analysis Microbiology Sunquest Label Print 01/22/2025 4:44 [address] [facility] Center[facility]ash[facility]Gold End: [id number] AnalysisStone Analysis Microbiology Routine One Time for 1 Occurrences starting 01/26/2025 until 01/26/2025on [facility] on above:One Time for 1 Occurrences starting 01/26/2025 until 01/26/2025 Immunizations Immunization DateImmunizationNotesCare FmoujvhzSupqaztq53-63-0004wudnavytc virus vaccine, unspecified formulationPaGoldcoll Games [facility]10-22-2018tetanus toxoid, reduced diphtheria toxoid, and acellular pertussis vaccine, adsorbedPaTime To Caterk RAYGOZA [facility]10-21-2018influenza virus vaccine, unspecified formulationTransmedia Corporation [facility]09-01-2004hepatitis B vaccine, pediatric or pediatric/adolescent dosage Nonaesolidar [facility]06-09-2004hepatitis B vaccine, pediatric or pediatric/adolescent dosage [employer] [facility]03-01-2004hepatitis B vaccine, pediatric or pediatric/adolescent dosage [employer] [facility]03-01-2004measles, mumps and rubella virus vaccinePaGoldcoll Games [facility]06-23-1993DTaP, unspecified formulationPaGoldcoll Games [facility]06-23-1993poliovirus vaccine, unspecified formulationTransmedia Corporation [facility]03-12-1993Hib, unspecified formulationPaGoldcoll Games [facility]03-12-1993measles, mumps and rubella virus vaccinePaGoldcoll Games [facility]06-08-1992Hib, unspecified formulationParavindra RAYGOZA [facility]04-01-1992Hib, unspecified formulationNona RAYGOZA [facility]01-29-1992Hib, unspecified formulationNona RAYGOZA [facility] Payers DatePayer CategoryPayerPolicy [id number] Health InsuranceALLIED BENEFIT SYSTEMS [id number] 2021[place]icaid[place] MEDICAID TERM 09/17 [facility] MEDICAID [id number] 2021-Present [phone] [address] [place] [address] Medicaid [id number] 2.840.1.000739.3.57[id number] 2.840.1.609815.3.57[id number] 2.16.840.1.218543.3.57[id number] 2.16.840.1.481200.3.57[id number] 2.16.840.1.569559.3.57[id number] 2.16.840.1.256723.3.57[id number] 2.16.840.1.599827.3.57[id number] 2.16.840.1.282534.3.57[id number] 2.16.840.1.682702.3.57[id number] 2.16.840.1.603611.3.57[id number] 2.16.840.1.419176.3.57[id number] 2.16.840.1.331728.3.579.[id number] 2.16.840.1.579621.3.57[id number] 2.16.840.1.277202.3.579.2.93510-84-7773Prfodhv0589649 2.16.840.1.625053.3.57[id number] 2.16.840.1.337210.3.579.[id number] 2.16.840.1.553491.3.579.[id number] 2..840.1.916407.3.57[id number] 2.16.840.1.260632.3.579.[id number] 2.840.1.923829.3.57[id number] 2.840.1.090552.3.57[id number] 2.0.1.545622.3.57[id number] 2.840.1.058496.3.57[id number] 2.0.1.031516.3.579.2.[id number] 2.0.1.050909.3.579.2.[id number] 2.0.1.276306.3.57[id number] 2.0.1.675586.3.579.2.727 [id number] 1960Self-pay [id number] 2.840.1.394224.3.579.2.531 [id number] 2.840.1.9[id number] 2.840.1.926287.3.579.2.531 Social History DateTypeDetailFacilityTobacco smoking status NHISTobacco smoking consumption unknownWilson Memorial Hospitaltart: 03-11-0176Qok Assigned At BirthNot on file [facility]: 08-20-2021 End: 99-74-0200Vuhjdzh smoking statusNever smoked tobacco (finding)[facility] Institutetart: 31-40-7417Vszpdql smoking statusNeverJatin Kennedy Krieger Institutetart: 01-22-2025 End: 31-37-2775Dsm Assigned At [facility] CenterFeSelect [facility], Beachwoodtart: 86-53-4196Myi Assigned At [facility]: 11-24-2024 End: 30-86-0969XcrFuonru (finding)[facility]: 01-22-2025 End: 97-34-5978Yrgqlaq use and exposureSmokeless tobacco non-userBon Cuponomia [facility] HospitalStart: 01-22-2025 End: 10-99-0045Zjwfcjjay beverage intakeEx-drinker (finding)Bon RFinityStart: 01-22-2025 End: 17-51-2833Fvcuhfk of Social functionBon RFinityHas the electric, gas, oil, or water company threatened to shut off services in your home in past 12MoNoBon RFinity(I/We) worried whether (my/our) food would run out before (I/we) got money to buy more.Never trueBon [facility] HospitalStart: 12-17-2023 End: 76-76-9416Ngjinqaag beverage intakeLifetime non-drinker (finding)[facility] Medical Equipment Procedure CodeEquipment CodeEquipment Original TextEquipment IdentifierDates Stent Uret 6fr L26cm Percflx Hydr+ Tapr Tip Grad - [id number] ()[id number], [id number] FDAStart: 44-72-9029Syujj Uret 6fr L26cm Percflx Hydr+ Dbl Pgtl Thrd 2 - [id number] ()[id number], [id number] FDAStart: 01-27-2025 Goals DatePatient GoalDesired Activity/State Functional Status ZhcjTcwgodbazoTjphihCrorfmrb64-89-2118Siutgkbxey statusPatient at Baseline [facility] Work Phone: [phone] 352-61380145493-94-2993Cnngrpxlnj StatusN/AExec[facility] Mental Status QfneChvjfdsywaPluzmzCwwyxmqw97-41-8987Wkfiadrds functionCognitive Status Patient [facility] Work Phone: Clinical Notes 07-03-2022 to 05-29-2025 Note Date & IygmKdysXhrdphmq02-34-6943 History of Present illness Narrative* Patrick Leiva MD - 05/29/2025 2:45 PM EDT Suture Removal Patient here for suture removal: [...] discontinue wound care., Instructed to keep steri stripson for at least 5-7 days., Pathology results discussed. Next Visit: 1 year, skin check documented in this encounterPhelps HealthCplfrgkfkk48-97-5272 History of Present illness Narrative* Patrick Leiva MD - 05/15/2025 3:30 PM EDT Images from the original note were not included. Saul Barriga is a 34 y.o. female who [...] and allergies were reviewed. 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 Next Visit: as scheduled documented in this encounterPhelps HealthRrgupamjdw75-61-1631 History of Present illness Narrative* Patrick Leiva MD - 04/10/2025 9:50 AM EDT Images from the original note were [...] OF RIGHT UPPER EYELID Right Upper Eyelid [place] papule Favor possible stye, recommend patient continue [...] Next Visit: 2 weeks documented in this [facility]06-18-2025 History of Present illness Narrative* Imani Sutton LPN - 04/05/2025 1:00 PM EDT Reason for Appointment: Patient ID: Diana Barriga [...] (BMI) of 40.1 to 44.9 in adult ([facility]) 04/10/2023 Encounter for follow-up examination after completed treatment for conditions other than malignant neoplasm 04/10/2023 IUD contraception 04/10/2023 Menorrhagia with regular cycle 04/10/2023 Anti-M isoimmunization affecting , 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 Anxiety 07/26/2020 Bipolar disorder ([facility]) 06/01/2023 Dysuria 06/01/2023 Entrapment of left ulnar nerve 06/01/2023 Feeling of incomplete bladder emptying 06/01/2023 Flank pain 06/01/2023 Frequency of urination 06/01/2023 History of chlamydia 07/26/2020 History of gestational diabetes 07/26/2020 History of kidney stones 06/01/2023 Hypercalciuria 06/01/2023 Hyperoxaluria 06/01/2023 Intrauterine ([facility]) 02/18/2018 Lesion of ulnar nerve 06/01/2023 Mass of scalp 06/01/2023 Muscle pain 06/01/2023 Microhematuria 06/01/2023 Astigmatism 05/05/2017 Nocturia 06/01/2023 Overweight 06/01/2023 Pyelonephritis 06/01/2023 Kidney stone 06/01/2023 Retroflexion of uterus 06/01/2023 Sprain of calcaneofibular ligament 06/01/2023 Streptococcal pharyngitis 06/01/2023 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/01/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 06/01/2023 Superficial thrombophlebitis 06/01/2023 Term delivery with labor in third trimester ([facility]) 08/06/2018 Urge incontinence 06/01/2023 Urinary urgency 06/01/2023 UTI (urinary tract infection) 06/01/2023 Mass of left breast 01/08/2024 Resolved Ambulatory Problems Diagnosis Date Noted Encounter for gynecological examination (general) (routine) without abnormal findings 04/10/2023 Past Medical History: Diagnosis Date Abnormal Pap smear of cervix Anxiety and depression Bipolar 1 disorder ([facility]) Bladder prolapse, congenital ([facility]) Dysplasia of cervix S/P VH (vaginal hysterectomy) [...] nursing note reviewed. Exam conducted with a instrumentation tech present. Vitals: Estimated body mass index is [...] them. Patient can also view results via [employer]. I reinforced importance of condom use for [...] of: Jefferson Gibbs DO documented in this encounterPhelps HealthHkancfnedh15-75-3426 History of Present illness Narrative* Balwinder Ashton RN - 01/29/2025 9:32 AM EDT Patient given all discharge instructions and education. Patient and present for teaching. Patient voices she still has antibiotic at home and was instructed to continue to taking them. Patient also instructed to pull stent. Awaiting scripts from pharmacy. * Nathen Hemphill DO - 01/29/2025 9:05 AM EDT Images from the original note were not included. [facility] Office: [phone] Duncan Shelton DO, Rad Burks DO, Gerald Le DO, Kyle Medina DO, Felipe Sandhu MD, Yancy Padgett MD, Sonia Alvarado MD, Kerri Meza MD, Arron Olson MD, Rebecca Cox MD, Deneen Kaur MD, Nathen Hemphill DO, Lynda Jimenez MD, Everette Wiggins MD, Andrey Shelton DO, Dorita Leigh MD, Dangelo Fernandez DO, Ciara Sales MD, Elaine Silverman MD, Nasra Smiley MD, MD Tyesha, Dl Graham MD, Filomena Alexander MD, Lea Junior MD, Luis Felipe Delacruz MD, Tavares Cardoza MD, Casey Chavez DO, Analia Ring MD, Lyle Nguyen MD, Nathen Rogers MD, Cata Rogers MD, Johnathon Cerda MD, Makenzie Alberts, LIFE ASSURANCE REPRESENTATIVE, [place], LIFE ASSURANCE REPRESENTATIVE, Casey Mercer, LIFE ASSURANCE REPRESENTATIVE, Galilea Bradshaw, ALFREDO, Ritika Villaseñor LIFE ASSURANCE REPRESENTATIVE, Indu Montoya, LIFE ASSURANCE REPRESENTATIVE, Angelica Chaney, LIFE ASSURANCE REPRESENTATIVE, Vivian Kahn, LIFE ASSURANCE REPRESENTATIVE, Garima Balbuena, PA-C, Kyung Barkley, LIFE ASSURANCE REPRESENTATIVE, Hetal Morris, LIFE ASSURANCE REPRESENTATIVE, Yvette Canchola, LIFE ASSURANCE REPRESENTATIVE, Gail Greene,LIFE ASSURANCE REPRESENTATIVE, Dominguez Nunez, PA-C, Mar Sanchez, LIFE ASSURANCE REPRESENTATIVE, Cecelia Pearson, TEST DEPARTMENT HELPER, Ivy Cortes, LIFE ASSURANCE REPRESENTATIVE, Felicita Rm, LIFE ASSURANCE REPRESENTATIVE, Pau Viera, LIFE ASSURANCE REPRESENTATIVE [facility] IN-PATIENT SERVICE [facility] Progress Note 01/29/2025 9:05 AM Name: Diana Barriga Acct: [id number] Room: 0321/0321-02 Day: 3 Admit Date: 01/26/2025 5:25 PM PCP: Domingo Snyder MD Code Status: Full Code Subjective: She is feeling much better today. Pain is controlled. She is afebrile. Vitals are stable. Urine cultures are negative Brief History: This is a 34-year-old female who was transferred to our hospital for evaluation of left-sided flankpain. She was recently discharged from our facility [...] hyoscyamine, sodium chloride flush, sodium chloride, ondansetron ORondansetron, polyethylene glycol, oxyCODONE-acetaminophen, HYDROmorphone, ketorolac, acetaminophen Data: [...] results for input(s): LABALBU , LABA1C , T9KZRBW , FT4 , TSH , AST , ALT , LDH , GGT , ALKPHOS , BILITOT , BILIDIR , AMMONIA , AMYLASE , LIPASE , LACTATE , CHOL , HDL , CHOLHDLRATIO , TRIG , VLDL , KOD95FQ , PHENYTOIN , PHENYF , URICACID , POCGLU in the last 72 hours. Invalid input(s): PROT , Q1VLMPU , LABGGT , LDLCHOLESTEROL ABG:No results found for: POCPH , PHART , PH , POCPCO2 , GER6LLC , PCO2 , POCPO2 , PO2ART , PO2 , POCHCO3 , QXD7GUG , HCO3 , NBEA , PBEA , BEART , BE , THGBART , THB , BYE6FLB , FJTZ7RGV , N6WGBTMD , O2SAT , FIO2 Lab Results Component [...] Medium Nathen Hemphill DO 01/29/2025 9:05 AM * Nathen Hemphill DO - 01/28/2025 1:05 PM EDT Images from the original note were not included. [facility] Office: [phone] Duncan Shelton DO, Rad Burks DO, Gerald Le DO, Kyle Medina DO, Felipe Sandhu MD, Yancy Padgett MD, Sonia Alvarado MD, Kerri Meza MD, Arron Olson MD, Rebecca Cox MD, Deneen Kaur MD, Nathen Hemphill DO, Lynda Jimenez MD, Everette Wiggins MD, Andrey Shelton DO, Dorita Leigh MD, Dangelo Fernandez DO, Ciara Sales MD, Elaine Silverman MD, Nasra Smiley MD, MD Tyesha, Dl Graham MD, Filomena Alexander MD, Lea Junior MD, Luis Felipe Delacruz MD, Tavares Cardoza MD, Casey Chavez DO, Analia Ring MD, Lyle Nguyen MD, Nathen Rogers MD, Cata Rogers MD, Johnathon Cerda MD, Makenzie Alberts, LIFE ASSURANCE REPRESENTATIVE, [place], LIFE ASSURANCE REPRESENTATIVE, Casey Mercer, LIFE ASSURANCE REPRESENTATIVE, Galilea Bradshaw, [facility], Ritika Villaseñor, LIFE ASSURANCE REPRESENTATIVE, Indu Montoya, LIFE ASSURANCE REPRESENTATIVE, Angelica Chaney, LIFE ASSURANCE REPRESENTATIVE, Vivian Kahn, LIFE ASSURANCE REPRESENTATIVE, Garima Balbuena, PA-C, Kyung Barkley, LIFE ASSURANCE REPRESENTATIVE, Hetal Morris, LIFE ASSURANCE REPRESENTATIVE, Yvette Canchola, LIFE ASSURANCE REPRESENTATIVE, Gail Greene,LIFE ASSURANCE REPRESENTATIVE, Dominguez Nunez, PA-C, Mar Sanchez, LIFE ASSURANCE REPRESENTATIVE, Cecelia Pearson, [facility], Ivy Cortes, [facility], Felicita Rm, [facility], Pau Viera, LIFE ASSURANCE REPRESENTATIVE [facility] IN-PATIENT SERVICE [facility] Progress Note 01/28/2025 1:05 PM Name: Diana Barriga Acct: [id number] Room: 0321/0321-02 Day: 2 Admit Date: 01/26/2025 5:25 PM PCP: Domingo Snyder MD Code Status: Full Code Subjective: Feeling a little better today but still nauseated, weak. Does not feel back to baseline. Has hematuria. Brief History: This is a 34-year-old female who was transferred to our hospital for evaluation of left-sided flankpain. She was recently discharged from our facility [...] hyoscyamine, sodium chloride flush, sodium chloride, ondansetron ORondansetron, polyethylene glycol, oxyCODONE-acetaminophen, HYDROmorphone, ketorolac, acetaminophen Data: [...] results for input(s): LABALBU , LABA1C , Q5NVHOR , FT4 , TSH , AST , ALT , LDH , GGT , ALKPHOS , BILITOT , BILIDIR , AMMONIA , AMYLASE , LIPASE , LACTATE , CHOL , HDL , CHOLHDLRATIO , TRIG , VLDL , PHY85HV , PHENYTOIN , PHENYF , URICACID , POCGLU in the last 72 hours. Invalid input(s): PROT , I1FBUMW , LABGGT , LDLCHOLESTEROL ABG:No results found for: POCPH , PHART , PH , POCPCO2 , IXQ6RLK , PCO2 , POCPO2 , PO2ART , PO2 , POCHCO3 , YCN8NVQ , HCO3 , NBEA , PBEA , BEART , BE , THGBART , THB , NBF3UQD , RBII1NAF , F9LFJMXN , O2SAT , FIO2 Lab Results Component [...] Medium Nathen Hemphill DO 01/28/2025 1:05 PM * Glen Desai MD - 01/28/2025 7:33 AM EDT Urology Progress Note Subjective: Diana Barriga is [...] I.V.:2508.4] Out: 400 [Urine:400] Recent Labs 01/26/25 18501/27/25 0728 WBC 5.9 3.9 HGB 12.0 10.7* HCT 38.1 34.2* MCV 88.6 86.6 PLT 261 238 Recent Labs 01/26/25 18501/27/25 0728 NA 139 139 K 3.7 3.9 CL 106 108* CO2 21 22 BUN 12 11 CREATININE 0.9 0.7 Recent Labs 01/26/25 1753 COLORU [place]* PHUR 6.5 WBCUA 20 TO 50 RBCUA [...] weeks Glen Desai MD Urology Resident, PGY-4 * Anastasiya Medel, RD - 01/27/2025 10:08 AM EDT Comprehensive Nutrition Assessment Type and Reason for [...] mass loss Fluid Accumulation: Unable to assess Baker Test Strength: Not Performed Nutrition Assessment: 34 y.o.F [...] available s/p procedure. Pt v/u. Per chart, ptweighed 213# on 12/17/23, CBW of 179# shows clinically insignificant wt loss of 16% x 1 yr. No muscle/fat loss observed at this time. RD will continue to monitor per protocol. Nutrition Related Findings: LBM on 01/25. Labs/Meds reviewed. Wound Type: Surgical Incision Current Nutrition Intake & Therapies: Average Meal Intake: NPO Diet NPO Anthropometric Measures: Height: 167.6 cm (5' 5.98 ) [place] Body Weight (IBW): 130 lbs (59 kg) Current Body Weight: 81.6 kg (179 lb 14.3 oz), 138.4 % IBW. Current BMI (kg/m2): 29 Estimated Daily Nutrient Needs: Energy Requirements Based On: Formula Weight Used for Energy Requirements: Current Energy (kcal/day): 4564-7185 kcals/day Weight Used for Protein Requirements: Current Protein (g/day): 82-92 g/day Method Used for Fluid Requirements: 1 ml/kcal Fluid (ml/day): 4243-9873 ml/day Nutrition Diagnosis: Inadequate oral intake related [...] determine Anastasiya Medel RDN, LD, MS Contact: [phone] * Nathen Hemphill DO - 01/27/2025 8:39 AM EDT Images from the original note were not included. [facility] Office: [phone] Duncan Shelton DO, Rad Burks DO, Gerald Le DO, Kyle Medina DO, Felipe Sandhu MD, Yancy Padgett MD, Sonia Alvarado MD, Kerri Meza MD, Arron Olson MD, Rebecca Cox MD, Deneen Kaur MD, Nathen Hemphill DO, Lynda Jimenez MD, Everette Wiggins MD, Andrey Shelton DO, Dorita Leigh MD, Dangelo Fernandez DO, Ciara Sales MD, Elaine Silverman MD, Nasra Smiley MD, MD Tyesha, Dl Graham MD, Filomena Alexander MD, Lea Junior MD, Luis Felipe Delacruz MD, Tavares Cardoza MD, Casey Chavez DO, Analia Ring MD, Lyle Nguyen MD, Nathen Rogers MD, Cata Rogers MD, Johnathon Cerda MD, Makenzie Alberts, LIFE ASSURANCE REPRESENTATIVE, [place], LIFE ASSURANCE REPRESENTATIVE, Casey Mercer, LIFE ASSURANCE REPRESENTATIVE, Galilea Bradshaw, [facility], Ritika Villaseñor, LIFE ASSURANCE REPRESENTATIVE, Indu Montoya, LIFE ASSURANCE REPRESENTATIVE, Angelica Chaney, LIFE ASSURANCE REPRESENTATIVE, Vivian Kahn, LIFE ASSURANCE REPRESENTATIVE, Garima Balbuena, PA-C, Kyung Barkley, LIFE ASSURANCE REPRESENTATIVE, Hetal Morris, LIFE ASSURANCE REPRESENTATIVE, Yvette Canchola, LIFE ASSURANCE REPRESENTATIVE, Gail Greene,LIFE ASSURANCE REPRESENTATIVE, Dominguez Nunez, PA-C, Mar Sanchez, LIFE ASSURANCE REPRESENTATIVE, Cecelia Pearson, [facility], Ivy Cortes, LIFE ASSURANCE REPRESENTATIVE, Felicita Rm, LIFE ASSURANCE REPRESENTATIVE, Pau Viera, LIFE ASSURANCE REPRESENTATIVE [facility] IN-PATIENT SERVICE [facility] Progress Note 01/27/2025 9:31 AM Name: Diana Barriga Acct: [id number] Room: [facility]/0321-02 Day: 1 Admit Date: 01/26/2025 5:25 PM PCP: Domingo Snyder MD Code Status: Full Code Subjective: Started having increased pain and pressure on left side on Thursday. Called Urologist yesterday who recommended going to [place]. She had a CT scan which showed hydronephrosis in kidneyalong with a large stone. There was concern that stent was malfunctioning. Today she feels very ill. She is having pain that is described as a 6/10 throbbing pain in left flank. No fevers. She's been taking her antibiotic Brief History: This is a 34-year-old female who was transferred to our hospital for evaluation of left-sided flankpain. She was recently discharged from our facility [...] m (5' 6 ) Wt 81.6 kg (179lb 14.3 oz) SpO2 96% BMI 29.04 kg/m Temp (24hrs), Av.8 F (36.6 C), Min:97.7 F (36.5 C), Max:97.9 F (36.6 C) No results for input(s): POCGLU in the last 72 hours. I/O (24Hr): Intake/Output Summary (Last 24 hours) at 01/27/2025 0929 Last data filed at 01/27/2025 042 Gross per 24 hour Intake -- Output [...] results for input(s): LABALBU , LABA1C , T8JFMNK , FT4 , TSH , AST , ALT , LDH , GGT , ALKPHOS , BILITOT , BILIDIR , AMMONIA , AMYLASE , LIPASE , LACTATE , CHOL , HDL , CHOLHDLRATIO , TRIG , VLDL , NIQ00SW , PHENYTOIN , PHENYF , URICACID , POCGLU in the last 72 hours. Invalid input(s): PROT , B3SZECM , LABGGT , LDLCHOLESTEROL ABG:No results found for: POCPH , PHART , PH , POCPCO2 , ARZ7JAH , PCO2 , POCPO2 , PO2ART , PO2 , POCHCO3 , RLV8AUR , HCO3 , NBEA , PBEA , BEART , BE , THGBART , THB , GDJ9SML , UXQU5IHL , H5BKVDSD , O2SAT , FIO2 Lab Results Component [...] Medium Nathen Hemphill DO 01/27/2025 9:31 AM * Zia Covington MD - 01/27/2025 6:37 AM EDT Urology Progress Note Subjective: Diana Barriga is [...] CREATININE 0.9 Recent Labs 01/26/25 1753 COLORU [place]* PHUR 6.5 WBCUA 20 TO 50 RBCUA [...] although culture was negative, will order IV antibioticswith Rocephin - Follow-up daily labs - Continue Flomax and Levsin for stent pain Zia Covington MD 6:37 AM 01/27/2025 Cosigned by Edwina Espino MD at 01/27/2025 4:28 PM EDT documented in this encounterBon [facility] course Narrative* Nathen Hemphill DO - 01/29/2025 9:06 AM EDT Images from the original note were not included. [facility] Office: [phone] Duncan Shelton DO, Rad Burks DO, Gerald Le DO, Kyle Medina DO, Felipe Sandhu MD, Yancy Padgett MD, Sonia Alvarado MD, Kerri Meza MD, Arron Olson MD, Rebecca Cox MD, Deneen Kaur MD, Nathen Hemphill DO, Lynda Jimenez MD, Everette Wiggins MD, Andrey Shelton DO, Dorita Leigh MD, Dangelo Fernandez DO, Ciara Sales MD, Elaine Silverman MD, Nasra Smiley MD, MD Tyesha, Dl Graham MD, Filomena Alexander MD, Lea Junior MD, Luis Felipe Delacruz MD, Tavares Cardoza MD, Casey Chavez DO, Analia Ring MD, Lyle Nguyen MD, Nathen Rogers MD, aCta Rogers MD, Johnathon Cerda MD, Makenzie Alberts, LIFE ASSURANCE REPRESENTATIVE, [place], LIFE ASSURANCE REPRESENTATIVE, Casey Mercer, [facility], Galilea Bradshaw, [facility], Ritika Villaseñor, LIFE ASSURANCE REPRESENTATIVE, Indu Montoya, LIFE ASSURANCE REPRESENTATIVE, Angelica Chaney, LIFE ASSURANCE REPRESENTATIVE, Vivian Kahn, LIFE ASSURANCE REPRESENTATIVE, Garima Balbuena, PA-C, Kyung Barkley, LIFE ASSURANCE REPRESENTATIVE, Hetal Morris, LIFE ASSURANCE REPRESENTATIVE, Yvette [place], [facility], Gail Greene,LIFE ASSURANCE REPRESENTATIVE, Dominguez Nunez, PA-C, Mar Sanchez, LIFE ASSURANCE REPRESENTATIVE, Cecelia Pearson, [facility], Ivy Cortes, [facility], Felicita Rm, [facility], Pau Viera, [facility] IN-PATIENT SERVICE [facility] Discharge Summary Patient ID: Diana Barriga : 1990 ACCOUNT: [id number] Patient's PCP: Domingo Snyder MD Admit Date: [...] in the kidney. There was concern that thestent was malfunctioning and patient was subsequently transferred to our facility for reevaluation.She was seen by urology and underwent left [...] Home Physician Follow Up: Domingo Snyder MD [address] [facility] [address] Schedule an appointment as soon as possible for a visit in 1 week(s) Adonis Guerra MD [address] [facility] [address] Follow up Renal US in 6 [...] narcotics Please call attending physician or hospital power screwdriver operator with questions Call or Present to [...] in this patient's care. documented in this [facility] Hospital Discharge instructions* Discharge Instructions* Glen Desai MD - 01/28/2025 7:35 AM [...] narcotics Please call attending physician or hospital power screwdriver operator with questions Call or Present to [...] Please call with questions. documented in this [facility] History of Present illness Narrative* Eboni Kline - 01/22/2025 2:31 PM EDT CLINICAL PHARMACY NOTE: MEDS TO BEDS Total # of Prescriptions Filled: 4 The following medications were delivered to the patient: Tamsulosin 0.4 mg Sulfamethoxazole-trimethoprim 800-160 Hyoscyamine 0.125 mg Oxycodone 5 mg Additional Documentation: dropped off to patient in room 350 on 01/22/25 at 2 pm by eboni kline. Copay was 11.63 and paid by clover documented in this encounterSentara [facility] Hospital04-06-[facility]25 Hospital course Narrative* Nathen Hemphill DO - 01/22/2025 1:47 PM EDT Images from the original note were not included. [facility] Office: [phone] Duncan Shelton DO, Rad Burks DO, Gerald Le DO, Kyle Medina DO, Felipe Sandhu MD, Yancy Padgett MD, Sonia Alvarado MD, Kerri Meza MD, Arron Olson MD, Rebecca Cox MD, Deneen Kaur MD, Nathen Hemphill DO, Lynda Jimenez MD, Everette Wiggins MD, Andrey Shelton DO, Dorita Liegh MD, Dangelo Fernandez DO, Ciara Sales MD, Elaine Silverman MD, Nasra Smiley MD, MD Tyesha, Dl Graham MD, Filomena Alexander MD, Lea Junior MD, Luis Felipe Delacruz MD, Tavares Cardoza MD, Casey Chavez DO, Lyle Nguyen MD, Nathen Rogers MD, Cata Rogers MD, Johnathon Cerda MD, Makenzie Alberts CNP, Hodan Grove CNP, Casey Mercer, LIFE ASSURANCE REPRESENTATIVE, Galilea Bradshaw, [facility], Ritika Villaseñor, LIFE ASSURANCE REPRESENTATIVE, Indu Montoya, LIFE ASSURANCE REPRESENTATIVE, Angelica Chaney, LIFE ASSURANCE REPRESENTATIVE, Vivian Kahn, LIFE ASSURANCE REPRESENTATIVE, Garima Balbuena PA-C, Kynug Barkley, LIFE ASSURANCE REPRESENTATIVE, Hetal Morris, LIFE ASSURANCE REPRESENTATIVE, Yvette [place], LIFE ASSURANCE REPRESENTATIVE, Gail Greene, LIFE ASSURANCE REPRESENTATIVE, Dominguez Nunez PA-C, Mar Sanchez, LIFE ASSURANCE REPRESENTATIVE, Cecelia Pearson, [facility], Ivy Cortes, LIFE ASSURANCE REPRESENTATIVE, Felicita Rm, LIFE ASSURANCE REPRESENTATIVE, Pau Viera, LIFE ASSURANCE REPRESENTATIVE [facility] IN-PATIENT SERVICE [facility] Discharge Summary Patient ID: Diana Barriga : 1990 ACCOUNT: [id number] Patient's PCP: Domingo Snyder MD Admit Date: 01/21/2025 Discharge Date: 01/22/2025 Length of Stay: 1 Code Status: Full Code Admitting Physician: Nathen Kerans DO Discharge Physician: Nathen Hemphill DO Active Discharge Diagnoses: Hospital Problem Lists: Principal Problem: Left ureteral calculus Active Problems: Acute cystitis without hematuria Resolved Problems: * No resolved hospital problems. * Admission Condition: serious Discharged Condition: stable Hospital Stay: Hospital Course: Diana Barriga is a 34 y.o. female who was transferred to our hospital from [facility] for evaluation of flank pain. CT [...] Home Physician Follow Up: Adonis Guerra MD [address] [facility] [place] [address] Schedule an appointment as soon as [...] These medications were sent to [facility] [place] - [address] [facility] - P [phone] - F [phone] [address] [facility] [place] [address] hyoscyamine 0.125 MG tablet oxyCODONE 5 MG [...] this patient's care. v documented in this encounterBon [facility]04-[facility] Hospital Discharge instructions* Discharge Instructions* Zia Covington MD - 01/22/2025 9:27 AM [...] narcotics Please call attending physician or hospital power screwdriver operator with questions Call or Present to ED if fever (> 101F), intractable nausea vomiting or pain. Rx e-prescribed Pt should follow up with Dr. Guerra, in 1-2 weeks, for definitive stone treatment, call to confirm appointment documented in this encounterBon [facility]xner [facility]06-23-2024 Discharge summary Author [facility]fo [facility] April 10, 2024 9:29amNote Date/TimeJune 2023 7:10am[place] [address] Discharge Summary Signed Patient: Diana Barriga MR#: [id number] : 1990 Acct:[id number] Age/Sex: 33 / F Adm Date: 4 Loc: Room: [address] [place] [address]: Arnulfo Aviles MD Copies to: [...] the encounter. I reviewed the history and performedthe garnett elements of the assessment. I formulated the planof care and confirmed this with the medical student as noted below At the time of the interview, patient presented as very tearful but cooperative.Patient kept sayingshe knows everybody says this but she shouldn't [...] she is not suicidal she is just undera lot of pressure. Patient stated she is currently fighting for custody of her oldest daughter. She used to see Dr. Fenton but wants to switch to [place]. Along with this patient is in marriage counseling with her current and that today's session was not good. Patient stated she needs to be home to take care of her kids, the custody [place], and her marriage. Patient upset because she missedher son's play and has plans to take kids to [place] tomorrow. Patient denies any suicidal ideation denies hallucinations denies racing thoughts. Patient reports that there is no changes in her appetite or sleep. Patient reports that she feels fine. She has tried a lot of medications in the past and believes none of them have worked. He is going to [place] for psych therapy. He wants to try [...] She has an appointment coming up with [facility]. She deniedrecent suicideattempts or self injures behaviors. I discussed with her the risks and benefits of lamotrigine but she prefers to rely on therapy at this time and avoid psychotropic medications. The patient is currently functioning at her baseline. She is doing fairly well.She reports improvedmood and appetite, improved ability to enjoy certain [...] group therapy and found them useful to understandtheir clinical symptoms well and also developed coping skills that were individualized for themand patient feels comfortable applying them when they return home. She wants to sign herself out. She does not meet criteria for involuntary psychiatric hospitalization at this time given lack of suicidalplan, thought or intent and availability of to [...] Restriction Diet: Regular Instructions: Bipolar Disorder (DC), [facility] DC Instructions, Know your Meds [...] 2.01 Documented By: Arnulfo Aviles MD 4 [id number] Signed By: <Electronically signed by Arnulfo Aviles MD> 04/10/24 0929 [facility] Work Phone: 1(760) 730-699906-22-2024 History and physical note Author [facility]fo [facility] April 09, 2024 9:09amNote Date/TimeJune 2023 8:43[place] [address] Psychiatry H&P Signed Patient: Diana Barriga MR#: [id number] : 1990 Acct:[id number] Age/Sex: 33 / F Adm Date: 4 Loc: Room: [address] [place] [address] Type: ADM IN Attending Dr: Arnulfo Aviles MD Copies to: MD Domingo Tate MD~ Date of Service: 04/09/2024 HPI Narrative Narrative: Ms. Barriga is a 33 year old female with a reported history of bipolar who presentsfor inpatient treatment due to possible suicidal ideation. Patient was personally seen by me on the day of the encounter. I reviewed the history and performedthe garnett elements of the assessment. I formulated the planof care and confirmed this with the medical student as noted below At the time of the interview, patient presented as very tearful but cooperative.Patient kept sayingshe knows everybody says this but she shouldn't [...] she is not suicidal she is just undera lot of pressure. Patient stated she is currently fighting for custody of her oldest daughter. She used to see Dr. Fenton but wants to switch to [facility]. Along with this patient is in marriage counseling with her current and that today's session was not good. Patient stated she needs to be home to take care of her kids, the custody [place], and her marriage. Patient upset because she missedher son's play and has plans to take kids to [place] tomorrow. Patient denies any suicidal ideation denies hallucinations denies racing thoughts. Patient reports that there is no changes in her appetite or sleep. Patient reports that she feels fine. She has tried a lot of medications in the past and believes none of them have worked. He is going to [facility] for psych therapy. He wants to try therapy before any medications. 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 The patient's verbal consent was provided. Documented By: Arnulfo Aviles MD 4 [id number] Signed By: <Electronically signed by Arnulfo Aviles MD> 04/09/24 0909 [facility] Work Phone: 1(553) 479-461206-02-2023 Hospital Discharge instructions Follow Up Care 03/20/2023 11:51:58 With:IDALMIS BORDEN, Nona Turner, URL Address: [address] [place] [address]- When: Unknown [facility] 06-02-2023 Hospital Discharge instructions Patient [...] include: ?8 oz (237 mL) of milk, ijuisds-deledcbrkvdt-kldlv milk, and calcium- fortifiedfruit juice. Calcium-fortified means [...] ?Spinach (cooked), rhubarb, beets, sweet potatoes, and Paraguayan chard. ?Peanuts. ?Potato chips, venezuelan fries, and baked potatoes with skin on. ?Nuts and nut products. ?Chocolate. If you regularly take a diuretic medicine, make sure to eat at least 1 or 2 servings of fruits or vegetables that are high in potassium each day. These include: ?Avocado. ?Banana. ?Neosho, prune, carrot, or tomato juice. ?Baked potato. [...] magnesium, fish oil, or vitamin B6. Take pauk-bif-eimzjyb and prescription medicines only as told by [...] Casseroles. Pizza. Lasagna. Frozen meals. Potato chips. Prydeinig fries. The items listed above may not [...] provider. Document Revised: 06/16/2022 Document Reviewed: 06/16/2022 [employer] Patient Education 2022 ByRead. Follow Up Care 12/26/2022 08:46:46 With:IDALMIS BORDEN, Nona Turner, URL Address: [facility] [address], [place] [address]- When: Unknown [facility] 01-20-2023 NoteOPERATIVE NOTE OPERATION DATE: 11/07/2022 PROCEDURE: Mery endometrial ablation with LEEP. PREOPERATIVE DIAGNOSIS: Cervical dysplasia, menorrhagia. POSTOPERATIVE DIAGNOSIS: Cervical dysplasia, menorrhagia. ANESTHESIA: General. SURGEON: Jefferson Gibbs D.O. EFFICIENCY ENGINEER: None. BLOOD LOSS: 50 mL. URINE [...] taken to Recovery Room in stable condition.[id number] Hospital Discharge instructions Follow Up Care 09/25/2022 13:54:04 With:IDALMIS BORDEN, Nona Turner, URL Address: [address] [place], [place] [address]- When: Unknown [facility] 12-01-2022 NoteOPERATIVE NOTE OPERATION DATE: [...] usual fashion. I started by passing a 22-Prydeinig Olympus cystoscope per urethra and into the [...] removed. She was then transferred to a gurgrand coteau and wheeled to PACU in stable condition.[facility] [id number] NoteHNO ID: [id number] Author: Daniel Montgomery APRN.LIFE ASSURANCE REPRESENTATIVE Service: ? Author Type: Nurse Practitioner Type: Progress Notes Filed: 09/04/2022 7:46 AM Note Text: The patient did not show up for this appointment. The patient did not show up for this appointment.[facility] [id number] History of Present illness Narrative* Daniel Montgomery APRN.WAYNE - 09/04/2022 7:40 AM EST The patient did not show up for this appointment. The patient did not show up for this appointment. documented in this encounterSouthview [facility] Center09-15-2022 NotePROCEDURE: XR ANKLE LT MIN 3 V COMPARISON: None. HISTORY: Sprain of calcaneofibular ligament FINDINGS: BONES:No fracture, acute abnormality, or significant arthropathy. SOFT TISSUES:Extensive lateral soft tissue swelling EFFUSION:None visible. OTHER: Negative. IMPRESSION: Lateral soft tissue swelling. No acute fracture Electronically authenticated by: GLEN PEREZ Date: 2022-07-03 07:09[facility] note Future Appointments Appointment Date:03/20/2023 10:15:00 AM Scheduled Provider:Nona RAYGOZA MD Location:[facility] Appointment Type:URO Office Visit [facility] evalhyrqqn + Plan note Future Appointments Appointment Date:12/04/2023 09:45:00 AM Scheduled Provider:Nona RAYGOZA MD Location:[facility] Appointment Type:URO Office Visit Diagnostic Tests Pending * Electrolyte Panel 03/20/23 [facility] evalfwnpmg note* Diagnosis NO SHOW- Primary documented in this encounter [facility] note* Diagnosis Onset Date Resolution Status Bipolar disorder acute [facility] Work Phone: Evaluation noteNo assessment information available [facility] Work Phone: Evaluation note* Diagnosis VUR (vesicoureteric reflux) Vesicoureteral reflux, [...] Calculus of kidney documented [facility]* Diagnosis Hydronephrosis with renal calculous obstruction- Primary Bilateral ureteral calculi Acute postoperative pain Other acute postoperative pain Left ureteral calculus Calculus of ureter S/P cystoscopy with ureteral stent placement Pyelonephritis Pyelonephritis, unspecified documented in this encounter [facility]* Diagnosis Well woman exam with routine gynecological exam Routine gynecological examination H/O: hysterectomy Acquired absence of both cervix and uterus Night sweats Generalized hyperhidrosis documented in this encounter [facility]* Diagnosis Hordeolum externum of right upper eyelid- Primary Neoplasm of unspecified behavior of bone, soft tissue, and skin documented in this encounter [facility]* Diagnosis Encounter for removal of sutures- Primary documented in this encounter [facility]* Diagnosis Neoplasm of unspecified behavior of bone, soft tissue, and skin- Primary documented in this encounter [facility] note* Diagnosis Encounter for removal of sutures- Primary [facility] Narrative No data available for this section [facility] progress note No data available for this section [facility] reason for referral (narrative)No reason for referral information availableParkview Health [facility] Work Phone: Reason for visit Narrative* Imaging (Routine) - Open SpecialtyDiagnoses / ProceduresReferred By ContactReferred To ContactRadiology Diagnoses VUR (vesicoureteric reflux) Procedures FL VOIDING URETHROCYSTOGRAM S&I Adonis Guerra MD [address] [place] [address] Phone: tel: fax: Referral IDStatusReasonStart DateExpiration DateVisits RequestedVisits [id number]/ [facility]Fast[facility] HospitalResaint [facility] for [facility] Narrative* Auth/CertSpecialtyDiagnoses / ProceduresReferred By ContactReferred To Contact Diagnoses Urinary tract obstruction by kidney stone UTI (urinary tract infection) [place] [address] [place] [address] Phone: tel: fax: [facility] CenterC[facility] [id number] [place], [place] [id number] Referral [facility]Status[facility] DateExpiration DateVisits RequestedVisits [id number] [facility] CenterFastPay HealthReason for visit Narrative* Auth/CertSpecialtyDiagnoses / ProceduresReferred By ContactReferred To Contact Diagnoses Hydronephrosis, left Luis Felipe Delacurz MD [address] [place] [address] Phone: tel: fax: [facility] CenterFast[facility] [address] [place] [address] Referral IDStatusReasonShoals DateExpiration DateVisits RequestedVisits [id number] [facility] Summary Purpose Family History No Family History Records Found Relationship Condition Age at Onset Recorded Date/T leonid Not Specified Hypertension Unknown family memberSuicideUnknowngrandparentSuicideUnknown Relationship Condition Age at Onset Recorded Date/T leonid mother Hypertension Unknown family memberSuicideUnknowngrandparentSuicideUnknown Advance Directives No Advanced Directives Records Found Advance Directive Response Recorded Date/ Time Advance Directives No August 13, 2022 1:51pm Advance Directive Response Recorded Date/ Time Advance Directives No August 13, 2022 12:51pm Date ActivatedDate InactivatedComments01/21/2025 11:46 PMDate ActivatedDate InactivatedComments01/26/2025 5:26 PMDate ActivatedDate InactivatedComments 01/21/2025 11:46 PM01/22/2025 6:02 PM Chief Complaint and Reason for Visit Chief Complaint bipolar- pink slip bipolar- pink slipReason for VisitBipolar disorder Chief Complaint Admit Date Unknown December [...] or prosecute any alcohol or drug abuse patient.[facility] Reason for Visit (unrecogniz ed section and content) ReasonOnset DateCommentsNo Show09/04/2022No showReasonCommentsGynecologic Exam ReasonCommentsSuspicious Skin LesionReasonCommentsSuture / Staple Removal Care Teams (unrecognized sec tion and content) Team MemberRelationshipSpecialtyStart DateEnd Date Domingo Snyder MD [address] [place] [address] ReferringFaksly Mbptgmab43/14/22 Team Status: Active Member Role Status Dates Domingo Snyder MD Primary Care Provider Active Team Status: Inactive Member Role Status Dates Domingo Snyder MD Primary Care Provider Active Start: April 08, 2024 End: April 10Urban Tucker Provider, Attending Provider ActiveStart: April 08, 2024 End: April 10, 2024 Team Status: Active Member Role Status Dates Domingo Snyder MD Primary Care Provider Active Start: April 09, 2024 Urban Tate Provider, Attending Provider, Other Provider ActiveStart: April 09, 2024 Team Status: Inactive Member Role Status Dates Domingo Snyder MD Primary Care Provide r, Attending Provider Active Start: December 02, 2024 End: December 02, 2024Team MemberRelationshipSpecialtyStart DateEnd Date Domingo Snyder MD [facility] [place] [address] PCP - GeneralFamily Medicine01/05/25Team MemberRelationshipSpecialtyStart DateEnd Date Domingo Snyder MD [address] [place], [place] [phone] PCP - Generalmily Medicine01/05/25Team MemberRelationshipSpecialtyStart DateEnd Date Domingo Snyder MD [address] [place] [address] PCP - GeneralFamily Medicine01/05/25 Team Status: Inactive Member Role Status Dates Javi Tanner PA-C Attending Provider Active Start: January 21, 2025 End: January 21, 2025Team MemberRelationshipSpecialtyStart DateEnd Date Domingo Snyder MD [address] [place] [address] PCP - GeneralFamily Medicine01/05/25Team MemberRelationshipSpecialtyStart DateEnd Date Domingo Snyder MD [address] [place] [phone] PCP - GeneralFamily Medicine04/13/23Team MemberRelationshipSpecialtyStart DateEnd Date Domingo Snyder MD [address] [place] [phone] PCP - GeneralFamily Medicine04/13/23Team MemberRelationshipSpecialtyStart DateEnd Date Domingo Snyder MD [address] [facility] [place] [address] PCP - Generalmily Medicine04/13/23Team MemberRelationshipSpecialtyStart DateEnd Date Domingo Snyder MD [address] [facility] [place] [address] PCP - Generalmi Medicine04/13/23Team MemberRelationshipSpecialtyStart DateEnd Date Domingo Snyder MD [address] [facility] [place] [address] PCP - Generalmi Medicine04/13/23 Team Status: Inactive Member Role Status Dates Vj Fraire , Attending Provider Active Start: May 05, 2025 End: May 05, 2025Team MemberRelationshipSpecialtyStart DateEnd Date Domingo Snyder MD [address] [place] [facility] [place] [address] PCP - Generalmi Medicine04/13/23Team MemberRelationshipSpecialtyStart DateEnd Date Domingo Snyder MD [address] [place] [facility] [place] [address] [facility] - [facility]04/13/23 INFORMATION SOURCE (unrecogn ized section and content) DATE CREATED AUTHOR 09/06/2022 [facility] DATE CREATED AUTHOR AUTHOR'S ORGANIZ ATION 02/19/2023 [facility] DATE CREATED AUTHOR AUTHOR'S ORGANIZ ATION 10/05/2024 [facility] DATE CREATED AUTHOR AUTHOR'S ORGANIZ ATION 01/16/2025 [facility] DATE CREATED AUTHOR AUTHOR'S ORGANIZ ATION 02/03/2025 [facility] DATE CREATED AUTHOR AUTHOR'S ORGANIZ ATION 04/05/2025 [facility] DATE CREATED AUTHOR AUTHOR'S ORGANIZ ATION 05/09/2025 [facility] DATE CREATED AUTHOR AUTHOR'S ORGANOLGA LIDIA ATION 05/16/2025 [facility] CREATED AUTHOR AUTHOR'S ORGANIZ ATION 08/18/2025 [facility] Goals (unrecognized section and content) Goals may be documented in a n alternate section Ordered Prescriptions (unrec ognized section and content) PrescriptionSigDispense QuantityRefillsLast FilledStart DateEnd Date sulfamethoxazole-trimethoprim (BACTRIM DS;SEPTRA DS) 800-160 MG per tablet Take 1 tablet by mouth 2 times daily for 10 days 20 tablet oxyCODONE (ROXICODONE) 5 MG immediate release tablet Indications:Acute postoperative painTake 1 tablet by mouth every 6 hours as needed for Pain for up to 7 days. Intended supply: 5 days. Take lowest dose possible to manage pain Max Daily Amount: 20 mg 8 tablet hyoscyamine (LEVSIN) 0.125 MG tablet Take 1 tablet by mouth every 6 hours as needed for Cramping (bladder spasms, stent pain) 20 tablet tamsulosin (FLOMAX) 0.4 MG capsule Take 1 capsule by mouth daily 14 capsule 01/22/2025PrescriptionSigDispense QuantityRefillsLast FilledStart DateEnd ibuprofen (ADVIL;MOTRIN) 600 MG tablet Take 1 tablet by mouth 3 times daily as needed for Pain 21 tablet oxyCODONE (ROXICODONE) 5 MG immediate release tablet Indications:Acute postoperative painTake 1 tablet by mouth every 6 hours as needed for Pain for up to 5 days. Intended supply: 5 days. Take lowest dose possible to manage pain Max Daily Amount: 20 mg 8 tablet Scheduled Active and Recently Administ ered Medications (unrecognized section and content) Medication Order/ ceFAZolin (ANCEF) 2000 mg in sterile water 20 mL IV syringe (COMPLETED) 2,000 mg, IntraVENous, TRANSFER TABLE OPERATOR HELPER TO O.R., On 01/22/25 at 0930, For 1 dose, Administer over 5 mins. * 0928 (MAR Hold - Provider: Tamy Autohold - Reason: Unreviewed Transfer Orders) * 0930 (Automatically Held - Provider: [facility] Aut[facility]) * 0939 (Given - Provider: KONSTANTIN Baird CRNA) * 0940 ([facility] Unhold - Provider: KONSTANTIN Baird CRNA) cefTRIAXone (ROCEPHIN) 1,000 mg in sterile water 10 mL IV syringe 1,000 mg, IntraVENous, EVERY 24 HOURS, First dose on 01/22/25 at 1900, For 10 days, Administer asslow IV Push over 5 mins Reconstitute 1 g vials with 9.6 mL of designated diluent to produce a 100 mg/mL solution. * 0928 ([facility] Hold - Provider: [facility] Autoh[employer] - Reason: Unreviewed Transfer Orders) * 1027 ([facility] Unhold - Provider: Anastasiya Coates RN) * 1900 (Due - Provider: Sudeep Ordonez [facility]) enoxaparin (LOVENOX) injection 40 mg 40 mg, SubCUTAneous, DAILY, First dose on 01/22/25 at 0900, Until Discontinued, Indication of Use: Prophylaxis-DVT/PE, Administer by deep subCUTAneous injection with pt lying down. Alternate injection sites on abdominal wall. Do not rub site after injection. Check with provider prior to any invasive procedure. * 0912 (Not Given - Provider: Anastasiya Coates RN - Reason: Patient/family refused - Comment: Pt. educated on importance and intent) * 0928 ([facility] Hold - Provider: Tamy Autohold - Reason: Unreviewed Transfer Orders) * 1027 ([facility] Unhold - Provider: Anastasiya Coates RN) ibuprofen (ADVIL;MOTRIN) tablet 600 mg (COMPLETED) 600 mg, Oral, ONCE, 1 dose, On 01/22/25 at 0015 * 0409 (Given - Provider: Aundrea Beltre RN) tamsulosin (FLOMAX) capsule 0.4 mg 0.4 mg, Oral, DAILY, First dose on 01/22/25 at 0900, Until Discontinued, Do not crush or break. Give 30 minutes after a full meal to limit risk of orthostatic hypotension/falls. * 0834 (Given - Provider: Anastasiya Coates RN) * 0928 ([facility] Hold - Provider: [facility] Aut[employer] - Reason: Unreviewed Transfer Orders) * 1027 ([facility] Unhold - Provider: Anastasiya Coates RN) Medication Order/ 0.9 % sodium chloride infusion (CANCELED) IntraVENous, at 150 mL/hr, CONTINUOUS, Starting on 01/22/25 at 0015 * 0002 (New Bag - Provider: Aundrea Beltre, FELA) * 0557 (New Bag - Provider: Aundrea Beltre, FELA) * 0928 ([facility] Hold - Provider: [facility] [employer] - Reason: Unreviewed Transfer Orders) * 1027 ([facility] Unhold - Provider: Anastasiya Coates RN) Medication Order/ acetaminophen (TYLENOL) suppository 650 mg(Linked Group 1) 650 mg, Rectal, EVERY 6 HOURS PRN, Starting on 01/21/25 at 2346, Until Discontinued, Pain Mild (1-3), allowed for higher pain score per patient request, Fever, For temp greater than 100.4 F (38 C),Administer if oral route cannot be used. * 0928 ([facility] Hold - Provider: [facility] [employer] - Reason: Unreviewed Transfer Orders) * 1027 ([facility] Unhold - Provider: Anastasiya Coates RN) acetaminophen (TYLENOL) tablet 650 mg(Linked Group 1) 650 mg, Oral, EVERY 6 HOURS PRN, Starting on 01/21/25 at 2346, Until Discontinued, Pain Mild (1-3), allowed for higher pain score per patient request, Fever, For temp greater than 100.4 F (38 C), Maximum dose of acetaminophen is 4000 mg from all sources in 24 hours. * 0928 ([facility] Hold - Provider: [facility] [employer] - Reason: Unreviewed Transfer Orders) * 1027 ([facility] Unhold - Provider: Anastasiya Coates [...] 4,000 mg Total Dose Given as 1,000 mgIVPB x 4 doses or 2,000 mg IVPB x 2 doses Less than 1.0 mg/dL CALL PHYSICIAN and give 4,000 mg Total Dose Given as 1,000 mg IVPB x 4 doses or 2,000 mg IVPB x 2 doses Infuse at 1,000 mg/hr Repeat Mag level 1 hour after final administration Protocol not for use in Patients with CrCl less than 30ml/min * 0928 (DEC Hold - Provider: [facility] [employer] - Reason: Unreviewed Transfer Orders) * 1027 ([facility] Unhold - Provider: Anastasiya Coates RN) morphine (PF) injection 2 mg(Linked Group 2) 2 mg, IntraVENous, EVERY 2 HOURS PRN, Starting on Sat 4525 at 2346, Until Discontinued, Pain Moderate (4-6), allowed for higher pain score per patient request, If oral and IV narcotics ordered, useoral first and only use IV if oral is ineffective or cannot take oral. Do Not give oral and IV within 1 hour of each other unless specifically ordered. * 0104 (See Alternative - Provider: Ivory Arellano) * 0424 (See Alternative - Provider: Aundrea Beltre RN) * 0832 (See Alternative - Provider: Anastasiya Coates RN) * 0928 ([facility] Hold - Provider: [facility] [employer] - Reason: Unreviewed Transfer Orders) * 1027 ([facility] Unhold - Provider: Anastasiya Coates [...] hour of each other unless specifically ordered. * 0104 (Given - Provider: Ivory Arellano) * 0424 (Given - Provider: Aundrea Beltre RN) * 0832 (Given - Provider: Anastasiya Coates RN) * 0928 ([facility] Hold - Provider: [facility] [employer] - Reason: Unreviewed Transfer Orders) * 1027 ([facility] Unhold - Provider: Anastasiya Coates, RN) ondansetron (ZOFRAN) injection 4 mg(Linked Group 3) 4 mg, IntraVENous, EVERY 6 HOURS PRN, Starting on 4/5/25 at 2346, Until Discontinued, Nausea, Vomiting, Administer if oral route cannot be used. * 0001 (Given - Provider: Aundrea Beltre RN) * 0554 (Given - Provider: Aundrea Beltre RN) * 0928 ([facility] Hold - Provider: [facility] [employer] - Reason: Unreviewed Transfer Orders) * 1027 ([facility] Unhold - Provider: Anastasiya Coates RN) ondansetron (ZOFRAN-ODT) disintegrating tablet 4 mg(Linked Group 3) 4 mg, Oral, EVERY 8 HOURS PRN, Starting on 4/5/25 at 2346, Until Discontinued, Nausea, Vomiting * 0001 (See Alternative - Provider: Aundrea Beltre RN) * 0554 (See Alternative - Provider: Aundrea Beltre RN) * 0928 ([facility] Hold - Provider: [facility] [employer] - Reason: Unreviewed Transfer Orders) * 1027 ([facility] Unhold - Provider: Anastasiya Coates RN) oxyCODONE (ROXICODONE) immediate release tablet 2.5 mg(Linked Group 4) 2.5 mg, Oral, EVERY 4 HOURS PRN, Starting on 4/5/25 at 2346, Until Discontinued, Pain Moderate (4-6), allowed for higher pain score per patient request * 0000 (See Alternative - Provider: Aundrea Beltre RN) * 0928 ([facility] Hold - Provider: [facility] [employer] - Reason: Unreviewed Transfer Orders) * 1027 ([facility] Unhold - Provider: Anastasiya Coates, FELA) * 1053 (See Alternative - Provider: Anastasiya Coates RN) oxyCODONE (ROXICODONE) immediate release tablet 5 mg(Linked Group 4) 5 mg, Oral, EVERY 4 HOURS PRN, Starting on 4/5/25 at 2346, Until Discontinued, Pain Severe (7-10) * 0000 (Given - Provider: Aundrea Beltre RN) * 0928 ([facility] Hold - Provider: [facility] [employer] - Reason: Unreviewed Transfer Orders) * 1027 ([facility] Unhold - Provider: Anastasiya Coates RN) * 1053 (Given - Provider: Anastasiya Coates RN) polyethylene glycol (GLYCOLAX) packet 17 g 17 g, Oral, DAILY PRN, Starting on 01/21/25 at 2346, Until Discontinued, Constipation, First linetherapy for constipation * 0928 ([facility] Hold - Provider: [facility] [employer] - Reason: Unreviewed Transfer Orders) * 1027 ([facility] Unhold - Provider: Anastasiya Coates [...] further dilute if GI adverse effects occur. * 0928 ([facility] Hold - Provider: [facility] [employer] - Reason: Unreviewed Transfer Orders) * 1027 ([facility] Unhold - Provider: Anastasiya Coates [...] in half and each half swallowed separately. * 0928 ([facility] Hold - Provider: [facility] [employer] - Reason: Unreviewed Transfer Orders) * 1027 ([facility] Unhold - Provider: Anastasiya Coates [...] patients with CrCl less than 30 mL/min. * 0928 ([facility] Hold - Provider: [facility] [employer] - Reason: Unreviewed Transfer Orders) * 1027 ([facility] Unhold - Provider: Anastasiya Coates [...] first time they get up after administration. * 0832 (Given - Provider: Anastasiya Coates RN) * 0928 ([facility] Hold - Provider: [facility] [employer] - Reason: Unreviewed Transfer Orders) * 1027 ([facility] Unhold - Provider: Anastasiya Coates RN) sterile water for irrigation (CANCELED) PRN, Starting on 01/22/25 at 0942, Intra-op * 0942 (Given - Provider: Surendra Salinas MD) Order Group 1: acetaminophen (TYLENOL) tablet 650 [...] For temp greater than 100.4 F (38 C),Administer if oral route cannot be used. Group 2: morphine (PF) injection 2 mgJump to med 2 mg, IntraVENous, EVERY 2 HOURS PRN, Starting on Sat 425 at 2346, Until Discontinued, Pain Moderate (4-6), allowed for higher pain score per patient request, If oral and IV narcotics ordered, useoral first and only use IV if oral is ineffective or cannot take oral. Do Not give oral and IV within 1 hour of each other unless specifically ordered. Or morphine injection 4 mgJump to med 4 mg, IntraVENous, EVERY 2 HOURS PRN, Starting on Sat 425 at 2346, Until Discontinued, Pain Severe (7-10), If oral and IV narcotics ordered, use oral first and only use IV if oral is ineffective or cannot take oral. Do Not give oral and IV within 1 hour of each other unless specifically ordered. Group 3: ondansetron (ZOFRAN-ODT) disintegrating tablet 4 mgJump to med 4 mg, Oral, EVERY 8 HOURS PRN, Starting on Sat 4 at 2346, Until Discontinued, Nausea, Vomiting Or ondansetron (ZOFRAN) injection 4 mgJump to med 4 mg, IntraVENous, EVERY 6 HOURS PRN, Starting on Sat 425 at 2346, Until Discontinued, Nausea, Vomiting, Administer if oral route cannot be used. Group 4: oxyCODONE (ROXICODONE) immediate release tablet 2.5 mgJump to med 2.5 mg, Oral, EVERY 4 HOURS PRN, Starting on Sat 425 at 2346, Until Discontinued, Pain Moderate (4-6), allowed for higher pain score per patient request Or oxyCODONE (ROXICODONE) immediate release tablet 5 mgJump to med 5 mg, Oral, EVERY 4 HOURS PRN, Starting on Sat 425 at 2346, Until Discontinued, Pain Severe (7-10) [...] patients with CrCl less than 30 mL/min. Medication Order// cefTRIAXone (ROCEPHIN) 1,000 mg in sterile water 10 mL IV syringe 1,000 mg, IntraVENous, EVERY 24 HOURS, First dose on Julia 01/26/25 at 2045, Administer as slow IV Push over 5 mins Reconstitute 1 g vials with 9.6 mL of designated diluent to produce a 100 mg/mL solution. * 1440 (DEC Hold - Provider: Tamy Autohold - Reason: Unreviewed Transfer Orders) * 174 (DEC Unhold - Provider: Balwinder Ashton RN) * 2032 (Given - Provider: Gretchen Tony) * 2130 (Given - Provider: Gretchen Tony) * 2044 (Due) enoxaparin (LOVENOX) injection 40 mg 40 mg, SubCUTAneous, DAILY, First dose (after last modification) on Thu01/27/25 at 0900, Until Discontinued, Indication of Use: Prophylaxis-DVT/PE * 0900 (Automatically Held - Provider: Glen Desai MD) * 0932 (Unheld by provider - Provider: Nathen Kearns DO) * 144 (DEC Hold - Provider: Tamy Autohold - Reason: Unreviewed Transfer Orders) * 174 ([facility] Unhold - Provider: Balwinder Ashton RN) * 0901 (Not Given - Provider: Balwinder Ashton RN - Reason: Patient/family refused) * 0817 (Not Given - Provider: Balwinder Ashton RN - Reason: Patient/family refused) sodium chloride flush 0.9 % injection 5-40 mL 5-40 mL, IntraVENous, EVERY 12 HOURS SCHEDULED (2 times per day), First dose on Thu01/26/25 at 2100, Until Discontinued, For Line Patency: Peripheral IV = 5 mL; Midline or Central Line = 10 mL/lumen.If following IV push medication, administer flush at same rate as the IV push. Flush volume is determined by type of infusion therapy being given. For non-viscous solutions use: Peripheral IV = 5 mL Midline or Central Line = 10 mL/lumen For viscous solutions (i.e. blood components, parenteral nutrition, contrast media, or after obtaining blood sample) use: Peripheral IV = 10 mL Midline or CentralLine = 20 mL/lumen * 0904 (Given - Provider: Yamel Leavitt) * 1440 (DEC Hold - Provider: Tamy Autohold - Reason: Unreviewed Transfer Orders) * 174 ([facility] Unhold - Provider: Balwinder Ashton RN) * 2032 (Given - Provider: Gretchen Tony) * 09 (Given - Provider: Balwinder Ashton RN) * 2200 (Given - Provider: Gretchen Tony) * 0817 (Not Given - Provider: Balwinder Ashton, FELA - Reason: Other) * 2100 (Due) tamsulosin (FLOMAX) capsule 0.4 mg 0.4 mg, Oral, DAILY, First dose on Thu01/27/25 at 0900, Until Discontinued, Do not crush or break. Give 30 minutes after a full meal to limit risk of orthostatic hypotension/falls. * 0904 (Given - Provider: Yamel Leavitt) * 1440 (DEC Hold - Provider: Tamy Autohold - Reason: Unreviewed Transfer Orders) * 1744 (DEC Unhold - Provider: Balwinder Ashton, FELA) * 0858 (Given - Provider: Balwinder Ashton, FELA) * 0812 (Given - Provider: Balwinder Ashton RN) Medication Order// 0.9 % sodium chloride infusion () IntraVENous, at 75 mL/hr, CONTINUOUS, Starting on Thu01/26/25 at 1745, For 12 hours * 0400 (Rate/Dose Verify - Provider: Gretchen Tony) * 0800 (Rate/Dose Change - Provider: Gretchen Tony) * 0802 (Rate/Dose Change - Provider: Gretchen Tony) * 1443 (Stopped - Provider: Gretchen Tony) Medication Order// 0.9 % sodium chloride infusion IntraVENous, at 5-250 mL/hr, PRN, if patient receiving piggyback infusions and maintenance fluids are not ordered OR KVO fluids to protect IV site / prevent frequent line interruptions/ long duration, Starting on Thu01/26/25 at 1726, For piggyback infusion, administer at [...] or less into rate field of order. * 1440 (DEC Hold - Provider: Tamy Autohold - Reason: Unreviewed Transfer Orders) * 1744 (MAR Unhold - Provider: Balwinder Ashton, FELA) acetaminophen (TYLENOL) tablet 650 mg 650 mg, Oral, EVERY 6 HOURS PRN, Starting on Julia 01/26/25 at 2128, Until Discontinued, Pain Mild (1-3), allowed for higher pain score per patient request, Maximum dose of acetaminophen is 4000 mg fromall sources in 24 hours. * 1440 (DEC Hold - Provider: [facility] [employer] - Reason: Unreviewed Transfer Orders) * 1744 (MAR Unhold - Provider: Balwinder Ashton, FELA) diatrizoate meglumine (CYSTOGRAFIN) 30 % solution (CANCELED) PRN, Starting on Thu01/27/25 at 1553, Until Thu01/27/25 at 1601, Intra-op * 1553 (Given - Provider: Edwian Espino MD) fentaNYL (SUBLIMAZE) injection 50 mcg (COMPLETED) 50 mcg, IntraVENous, EVERY 5 MIN PRN, 2 doses, Starting on Thu01/27/25 at 1658, Until Thu01/27/25 at 1707, Pain Severe (7-10), For Phase I. If Phase II oral narcotics have been administered in the last 60 minutes, do not administer IV narcotics unless specifically approved by provider., PACU only * 1702 (Given - Provider: Maureen Savage RN) * 1707 (Given - Provider: Maureen Savage RN) HYDROmorphone [...] hour of each other unless specifically ordered. * 0102 (Given - Provider: Sabra Beard RN) * 0359 (Given - Provider: Sabra Beard RN) * 0717 (Given - Provider: Balwinder Asthon RN) * 1014 (Given - Provider: Balwinder Ashton RN) * 1329 (Given - Provider: Balwinder Ashton RN) * 1440 (MAR Hold - Provider: Tamy Autohold - Reason: Unreviewed Transfer Orders) * 1744 ([facility] Unhold - Provider: Balwinder Ashton RN) * 1840 (Given - Provider: Balwinder Ashton RN) * 2234 (Given - Provider: Gretchen Tony) * 0212 (Given - Provider: Gretchen Tony) * 0554 (Given - Provider: Gretchen Tony) * 0859 (Given - Provider: Balwinder Ashton RN) * 1204 (Given - Provider: Maryam Avila) * 1510 (Given - Provider: Maryam Avila) * 1813 (Given - Provider: Maryam Avila) * 2131 (Given - Provider: Gretchen Tony) * 0239 (Given - Provider: Gretchen Tony) * 0812 (Given - Provider: Balwinder Ashton RN) hyoscyamine (LEVSIN/SL) sublingual tablet 0.125 mg 0.125 mg, Oral, EVERY 6 HOURS PRN, Starting on Julia 01/26/25 at 1726, Until Discontinued, Cramping, bladder spasms, stent pain * 0359 (Given - Provider: Sabra Beard RN) * 1440 (DEC Hold - Provider: [facility] [employer] - Reason: Unreviewed Transfer Orders) * 174 (DEC Unhold - Provider: Balwinder Ashton RN) * 2032 (Given - Provider: Gretchen Tony) * 0453 (Given - Provider: Gretchen Tony) ketorolac (TORADOL) injection 30 mg 30 mg, IntraVENous, EVERY 6 HOURS PRN, Starting on Julia 01/26/25 at 2128, Until Thu01/31/25 at 2127, Pain Moderate (4-6), allowed for higher pain score per patient request, Pain Severe (7-10), Do not administer for more than 5 days. * 0717 (Given - Provider: Balwinder Ashton RN) * 1440 (DEC Hold - Provider: [facility] [employer] - Reason: Unreviewed Transfer Orders) * 1744 (DEC Unhold - Provider: Balwinder Ashton RN) * 1759 (Given - Provider: Balwinder Ashton RN) * 0452 (Given - Provider: Gretchen Tony) * 1106 (Given - Provider: Balwinder Ashton RN) * 1723 (Given - Provider: Maryam Avila) * 0141 (Given - Provider: Gretchen Tony) * 0812 (Given - Provider: Balwinder Ashton RN) ondansetron (ZOFRAN) injection 4 mg(Linked Group 1) 4 mg, IntraVENous, EVERY 6 HOURS PRN, Starting on Julia 01/26/25 at 1726, Until Discontinued, Nausea, Vomiting, Administer if oral route cannot be used. * 0806 (Given - Provider: Balwinder Ashton RN) * 1440 (MAR Hold - Provider: Tamy Autohold - Reason: Unreviewed Transfer Orders) * 1744 (MAR Unhold - Provider: Balwinder Ashton RN) * 1203 (Given - Provider: Maryam Avila) ondansetron (ZOFRAN-ODT) disintegrating tablet 4 mg(Linked Group 1) 4 mg, Oral, EVERY 8 HOURS PRN, Starting on Julia 01/26/25 at 1726, Until Discontinued, Nausea, Vomiting * 0806 (See Alternative - Provider: Balwinder Ashton RN) * 1440 (MAR Hold - Provider: [facility] [employer] - Reason: Unreviewed Transfer Orders) * 1744 (MAR Unhold - Provider: Balwinder Ashton RN) * 1203 (See Alternative - Provider: Maryam Avila) [...] mg from all sources in 24 hours. * 0008 (Given - Provider: Sabra Beard RN) * 1440 (MAR Hold - Provider: [facility] [employer] - Reason: Unreviewed Transfer Orders) * 1744 (MAR Unhold - Provider: Balwinder Ashton RN) * 203 (Given - Provider: Gretchen Tony) * 0709 (Given - Provider: Gretchen Tony) * 1106 (Given - Provider: Balwinder Ashton RN) * 1610 (Given - Provider: Maryam Avila) * 0040 (Given - Provider: Gretchen Tony) * 0711 (Given - Provider: Gretchen Tony) polyethylene glycol (GLYCOLAX) packet 17 g 17 g, Oral, DAILY PRN, Starting on Julia 01/26/25 at 1726, Until Discontinued, Constipation, First line therapy for constipation * 1440 ([facility] Hold - Provider: [facility] [employer] - Reason: Unreviewed Transfer Orders) * 1744 ([facility] Unhold - Provider: Balwinder Ashton RN) prochlorperazine (COMPAZINE) injection 10 mg 10 mg, IntraVENous, EVERY 6 HOURS PRN, Starting on Thu01/27/25 at 1317, Until Discontinued, Nausea,second line after Zofran, If administering IV push, administer at a maximum rate of 5 mg/minute. Patients should remain lying down following administration and be reassessed for relief of nausea and presence of hypotension. Patients should be assisted the first time they get up after administration. * 1330 (Given - Provider: Balwinder Ashton RN) * 1440 (MAR Hold - Provider: [facility] [employer] - Reason: Unreviewed Transfer Orders) * 1744 ([facility] Unhold - Provider: Balwinder Ashton RN) sod chloride IRR soln 0.9 % irrigation (CANCELED) CONTINUOUS PRN, Starting on Thu01/27/25 at 1526, Intra-op * 1526 (New Bag - Provider: Edwina Espino MD) * 1805 (Stopped - Provider: Balwinder Ashton RN - Comment: [Order ends at this time. Document a Stopped action when infusion is complete.]) sodium chloride flush 0.9 % injection 5-40 mL 5-40 mL, IntraVENous, PRN, Starting on Julia 01/26/25 at 1726, Until Discontinued, Line Care, After [...] For viscous solutions (i.e. blood components, parenteral nutrition,contrast media, or after obtaining blood sample) use: Peripheral IV = 10 mL Midline or Central Line= 20 mL/lumen * 1440 (DEC Hold - Provider: Tamy Autohold - Reason: Unreviewed Transfer Orders) * 1744 (DEC Unhold - Provider: Balwinder Ashton RN) Order Group 1: ondansetron (ZOFRAN-ODT) disintegrating tablet [...] BE BASED ON THE PRIMARY CLINICAL RECORDS. [facility]. provides no warranty or guarantee of the accuracy or completeness of information in this document.
[2025-09-04 20:53] LABS: Hematocrit 37.1 % (36.0-48.0); Hemoglobin 12.7 g/dL (12.0-16.0); Immature Granulocytes Abs Auto 0.01 10^3/uL (0.00-0.03); Immature Granulocytes Pct Auto 0.2 % (0.0-0.5); Lymphocytes Absolute Auto 2.4 10^3/uL (1.2-3.8); Mean Corpuscular HGB Conc 34.2 g/dL (29.9-35.2); Mean Corpuscular Hemoglobin 28.9 pg (26.7-34.0); Mean Corpuscular Volume 84.3 fL (81.0-99.0); Platelet Count 286 10^3/uL (150-450); Red Blood Count 4.40 10^6/uL (4.20-5.40); White Blood Count 6.6 10^3/uL (4.0-11.0)
[2025-09-04 21:10] LABS: Alanine Aminotransferase 36 U/L (14-59); Albumin Globulin Ratio 1.3; Albumin Level 3.8 g/dL (3.4-5.0); Alkaline Phosphatase 77 U/L (46-116); Anion Gap 9.1; Aspartate Amino Transferase 17 U/L (15-37); Blood Urea Nitrogen 11.0 mg/dL (7.0-18.0); Calcium 8.9 mg/dL (8.5-10.1); Carbon Dioxide 29.2 mmol/L (21.0-32.0); Chloride 108 mmol/L (98-107); Estimated GFR (African America >60 (>=60 mL/min/1.73m^2); Estimated GFR (Non-African Ame 60 (>=60 mL/min/1.73m^2); Globulin 2.9 g/dL; Glucose 110 mg/dL (74-106); Lipase 20.0 U/L (16.0-77.0); Potassium 3.3 mmol/L (3.5-5.1); Sodium 143 mmol/L (136-145); Total Protein 6.7 g/dL (6.4-8.2)
[2025-09-04 21:13] LABS: Lactate/Lactic Acid 0.7 mmol/L (0.4-2.0)
[2025-09-04 22:24] VITALS: BP 124/72; PULSE 80; O2SAT 99
== END 2025-09-04 22:28 | disposition home or self-care (01) ==
PROVIDERS: Emergency Provider Internal Medicine; PCP Family Medicine
DX: R10.9 Unspecified abdominal pain (principal); Z87.442 Personal history of urinary calculi
CPT/HCPCS: 36415; 74176; 80053; 81001; 81003; 83605; 83690; 85025; 87086; 96374; 99285; J3010

== ENCOUNTER 2025-09-11 11:01 | Outpatient (OUT) | payer OTHER, SELFPAY ==
--- OUTSIDE RECORDS SUMMARY | 2025-09-05 19:35 | XMS_ITS | Continuity of Care Document ---
Author Organization [facility] Address [address] [place] [address] Phone Care Team Providers Care Human Resources Assistant Manager Name Role Phone Seng Verdin MD Attending Provider Care Teams Patient Care Team Team Status: Inactive Member Role/Relationship Status Dates Seng Verdin MD Attending Provider Active St art: September 04, 2025 End: September 04, 2025 Allergies, Adverse Reactions, Alerts Allergen Type Severity Reaction Last Updated Verified Status No Known Allergies Allergy Unknown August 13, 2022 2:46pmYesActive Social History Smoking Status Status Start Date End Date Date of Observa tion Never smoked tobacco (finding) April 09, 2024 8:42am Observation Status Observation Response Date of Response Legal Sex Female (finding) [facility] 1989 Family History Relationship Condition Age at Onset Recorded Date/T leonid mother Hypertension Unknown family memberSuicideUnknowngrandparentSuicideUnknown Problems Active Problems Problem Diagnosis/Recorded Date Onset Date Stat us Suicidal ideation August 14, 2022 7:17am Unknown Active Inactive/Resolved Problems Problem Diagnosis/Recorded Date Onset Date Stat us Bipolar disorder August 13, 2022 3:29pm Unknown Resolved Medications Medication Status Dose Units Route Directions Qty Days Refills S tart Date Stop Date End Date Reason(s) Instructions Adherence Benztropine 1 mg tablet Discontinued 1 MG PO Twi ce daily as needed for eps August 12, 2022 11:00pmOctober 2021 10:38amBuspirone 10 mg tablet Zerfvtmsuteu77AMRKPddau dailyAugust 12, 2022 11:00pmOctober 2021 10:38amCitalopram 20 mg khudrfRkywlrqmctea91PJEOPcpgc dailyOctober 2021 11:00pmOctober 2021 10:38amQuetiapine 100 mg lzksaeGbzpcqsafowo064MRMR BedtimeOctober 2021 11:00pmOctober 2021 10:38amOlanzapine 15 mg trsgnkMitizxjceyyx04VWQFVlvjfdkVzqndkc 2021 11:00pmOctober 2021 10:38amHydroxyzine Pamoate 50 mg tslobheJtawcwrzewzl59PRRHOnagb times daily as needed for AnxietyOctober 2021 11:00pmOctober 2021 10:38amNo Name (No Known Home Meds)ActiveJun 2023 11:00pm Procedures Procedure Date Performed Status Urine Culture September 04, 2025 active Advance Directives Advance Directive Response Recorded Date/ Time Advance Directives No August 13, 2022 12:51pm Insurance Providers Guarantor [address] Address [address] [phone] Info.Home Phone: Payer Group Member ID Coverage Type Subscriber Relationship to Subscriber Effective Date Expiration Date [employer] [id number] L Mott Id: [id number] [address] [place] [id number] Home Phone: Self Encounters Encounter Location(s) Arrival/Admit Date Discharge/Departure Date Discharge/Departure Disposition Provider(s) Departed Referred -[facility] September 04, 2025 7:50pm September 04, 2025 7:51pm Discharged to home care or self care (routine discharge) Seng Verdin MD Plan of Treatment Future Tests Future scheduled test information is unavailable Pending Tests Test Name Ordered Date Scheduled Date Urine Culture September 04, 2025 7:50pm Future Visits Future appointment information is unavailable Future Procedures Procedure Name Ordered Date Scheduled Date Urine Culture September 05, 2025 2:03pm Novem 2024 7:50pm Future Medications Future medication information is unavailable Patient Instructions Patient instructions are unavailable
--- OUTSIDE RECORDS SUMMARY | 2025-09-11 11:06 | XMS_ITS | Clinical Summary ---
Author Organization [facility] Address [id number] [address] [place] [address] Care Team Providers Care Gut Snatcher Name Role Phone Ignacio Das MD Primary Care Provider [phone] Allergies No known active allergies Medications MedicationSigDispense QuantityRefillsLast FilledStart DateEnd DateStatus prenat.vits,rodger,afx-upck-jhuim ( VITAMIN) tablet Take 1 tablet by [...] Active Problems ProblemNoted DateDiagnosed DateHistory of gestational roewieeu37/08/2020 Ggubbbjspl22/08/4339Jghnhnl65/08/2020History of canlwpoyg89/08/2020Term delivery with labor in third xqcpnamzi96/19/2018Anti-M isoimmunization affecting , dadlfbogym95/31/2018Intrauterine bilcncams66/03/2018Well woman exam with routine gynecological exam01/22/20181440Rfydrs67/18/0699Zjswgmumvir71/18/2017 Immunizations ImmunizationAdministration DatesNext DueInfluenza, Injectable, quadrivalent (PF) 08/08/2018Tdap1 Family History Medical HistoryRelationNameCommentsHyperlipidemiaFatherThyroid diseaseFather CataractsMaternal GrandmotherDiabetesMaternal GrandmotherThyroid diseaseMaternal GrandmotherTuberculosisMaternal GrandmotherHypertensionMotherHeart disease Paternal GrandfatherHyperlipidemiaPaternal GrandmotherGlaucomaNeg HxMacular degenerationNeg HxRelationNameStatusCommentsBrotherAliveFatherAliveMaternal GrandfatherDeceasedMaternal GrandmotherAliveMotherAlivePaternal Grandfather DeceasedPaternal GrandmotherDeceasedSisterAlive Social History Tobacco UseTypesPacks/DayYears UsedDateSmoking Tobacco: NeverSmokeless Tobacco: NeverAlcohol UseStandard Drinks/WeekCommentsNo0 (1 standard drink = 0.6 oz pure alcohol)ChildcareAnswerDate HvraisddTbkrwmraxJizexzq98/12/2019EmploymentAnswer Date UmhttgdgHcegxplqxkWfkocey10/12/2019Purpose - LifeAnswerDate RecordedPurpose and direction in tjlrZawwevy80/12/2021CommentsNoSex and Gender InformationValueDate RecordedSex Assigned at BirthNot on fileLegal SexFemale 05/24/2015 11:49 AM EDTGender IdentityNot on fileSexual OrientationNot on file Last Filed Vital Signs Vital SignReadingTime TakenCommentsBlood Oiotblgy99/6609/17/2020 1:33 PM EST Bixqu83274/30/2020 1:33 PM AOJMocsyhvpycv14.5 ??C (97.7 ??F)07/29/2019 7:21 AM EDTRespiratory Jcuf5606 7:21 AM EDTOxygen Nihehdvydd375%07/29/2019 8:49 AM EDTInhaled Oxygen Concentration--Kcnvtq968.5 kg (230 lb 6.1 oz)09/17/2020 1:33 PM NEVEnarua406.6 cm (5' 6 )07/29/2019 7:21 AM EDTBody Mass Index37.18 07/29/2019 7:21 AM EDT Plan of Treatment Health MaintenanceDue DateLast DoneCommentsDepression Norbppypv28/27/2003Tobacco Zzqdorxod74/27/2003Adult BMI Fbhzakjth41/27/2009Pap Smear104 Influenza Bagtypr55/, 08/08/2018, 08/22/2009DTaP,Tdap and Td Vaccines (6 - [...] Laboratories ? [facility] ? [address] [place] [address] ? [place] [address] ? Gynecologic Cytology Consultation ? Patient Name: CORI ENAMORADO : 1990 (Age: 27) Gender: F Taken: 01/22/2018 Reported: 02/03/2018 Physician(s): Yuniel Rosenberg MD ([phone]) Copy To: ?? [facility]. Rec. #: [id number] Acct: # [id number] Final Cytologic Interpretation Cervical (with or without endocervical) ThinPrep: Satisfactory for evaluation. A transformation zone component is present. NEGATIVE FOR INTRAEPITHELIAL LESION OR MALIGNANCY. Shift in greg suggestive of bacterial vaginosis. ?? jja/02/03/2018 Electronically Signed Out By ?CARON Galeano (ASCP) Date of Last Menstrual Period: ? 12/25/2017 Other Clinical Conditions: Screening/Routine z01.419 Fire Extinguisher Tester exam wo/abn findings Source of Specimen Cervical (with or without endocervical) ThinPrep ? Thin Prep Pap (TYPE PROOF REPRODUCER) Fee Code(s): ?? G0145 The Pap test is a screening test with an inherent, but low, probability of error. The Pap test is primarily effective for the diagnosis and prevention of squamous cell carcinoma. Regular screening iscritical for prevention. ThinPrep liquid-based slides, which meet the Wash Worker criteria for automated screening, have been screened by the ThinPrep Imaging System (as of 07/05/07) along with an additional manual rescreening by a facility manager histology and, if indicated, by a pathologist.Yuniel Rosenberg, 02/02/2018 Authorizing ProviderResult TypeResult StatusRobert Walter Rosenberg DO PATHOLOGY/CYTOLOGY ORDERABLESFinal ResultPerforming OrganizationAddress City/State/ZIP CodePhone Number COPATH from Last 3 Months or Most Recently Relevant to Health Maintenance Insurance Advance Directives * Full Code (Latest Code Status on File) Date ActivatedDate OqtdxrgkeywRczpvmst01/2/2018 12:30 AM08/20/2018 6:47 PM * Full Code Date ActivatedDate IhqntbwqfkdCtloxfbj33/20/2018 9:20 AM08/14/2018 4:36 PM Care Teams Team MemberRelationshipSpecialtyStart DateEnd Date Ignacio Das MD PCP - GeneralFamily Agedgvhb38/30/20
--- OUTSIDE RECORDS SUMMARY | 2025-09-11 11:06 | XMS_ITS | Clinical Summary ---
Author Organization [facility] Address [address] [place] [address] Care Team Providers Care Transportation Aide Name Role Phone Ignacio Das MD Primary Care Provider [phone] Allergies No known active allergies Medications MedicationSigDispense [...] Active Problems ProblemNoted DateDiagnosed DateMass of left ktvfpi6101/08/2024ipolar disorder 06/01/20233054Wmqyvik28/14/2023Entrapment of left ulnar nerve06/01/2023Feeling of incomplete bladder qirqpgtp78/14/2023Flank pain06/01/2023Frequency of urination 06/01/2023History of kidney hbtjha3606/01/20234205Lyrhmwrzmlbfgx25/14/2023 Yjqtwmomorobt89/14/2023Lesion of ulnar nerve06/01/2023Mass of scalp06/01/2023 Muscle pain06/01/20237690Qvrmgryqcldnaf84/14/1447Vlplethe04/14/2023Overweight 06/01/20235743Fdvqbtdaolaljy93/14/2023idney stone06/01/2023Retroflexion of uterus 06/01/2023Sprain of calcaneofibular dbbzsynb17/14/2023Streptococcal pharyngitis 06/01/2023Stricture of female rdhzgql9906/01/2023Stricture of mczinj7706/01/2023 Superficial chsgvkovknezavih99/14/2023Urge kzewbazaqzfy34/14/2023Urinary urgency 06/01/2023UTI (urinary tract infection)06/01/2023bnormal weight gain04/10/2023 Body mass index (BMI) of 40.1 to 44.9 in adult04/10/2023Encounter for follow-up examination after completed treatment for conditions other than malignant ne lsedtu0904/10/2023IUD hdvfvdhhgyzzd89/23/2023Menorrhagia with regular cycle 04/10/20231318Gqylyto21/08/2020History of ebkqzsomu93/08/2020History of gestational fyrwaspk98/08/2020Term delivery with labor in third trimester ([facility]) 08/06/2018Anti-M isoimmunization affecting , 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[facility]) 03/18/2018Intrauterine ([facility])02/18/20182535Kxnykgnwrpd82/18/2017 Resolved Problems ProblemNoted DateDiagnosed DateResolved DateEncounter for gynecological examination (general) (routine) without abnormal thwexcbz84 Family History Medical HistoryRelationNameCommentsDiabetesMaternal GrandmotherHypertension MotherHeart diseasePaternal GrandfatherMelanomaNeg HxRelationNameStatusComments FatherAliveMaternal GrandfatherDeceasedMaternal GrandmotherAliveMotherAlive Paternal GrandfatherDeceasedPaternal GrandmotherDeceasedSiblingAlive Social History Tobacco UseTypesPacks/DayYears UsedDateSmoking Tobacco: NeverSmokeless Tobacco: Never Tobacco Cessation:Counseling Given: Not Answered Alcohol UseStandard Drinks/WeekCommentsNever0 (1 standard drink = 0.6 oz pure alcohol)CommentsNoSex and Gender InformationValueDate RecordedSex Assigned at BirthNot on fileLegal OkxPomvqn15/15/2023 11:20 PM EDTGender IdentityNot on fileSexual OrientationNot on file Last Filed Vital Signs Vital SignReadingTime TakenCommentsBlood Prewjxmc593/72004/05/2025 1:06 PM EDT Pulse--Temperature--Respiratory Rate--Oxygen Saturation--Inhaled Oxygen Concentration--Ztlkcl71.9 kg (185 lb)04/05/2025 1:06 PM BWQEtowbm354.6 cm (5' 6 )06/16/2023 2:48 PM EDTBody Mass Index29.8606/16/2023 2:48 PM EDT Plan of Treatment DateTypeDepartmentCare Team (Latest Contact Info)Fdsemmhcjaj92/22/2026 9:00 AM EDTOffice Visit [facility] [facility] [address] [place] [phone] Jefferson Gibbs DO [address] [place] [address] 05/29/2026 1:15 PM EDTOffice Visit [facility] [address] [place] [phone] Alejandra Leiva MD [address] [place], [place] [phone] Insurance Care Teams Team MemberRelationshipSpecialtyStart DateEnd Date Ignacio Das MD [address] [place] [address] [facility]13/23
--- OUTSIDE RECORDS SUMMARY | 2025-09-11 11:06 | XMS_ITS | Clinical Summary ---
Author Organization [facility] Address [address] [place] [address] Care Team Providers Care Service Clerk Name Role Phone Ignacio Das MD Unavailable [phone] Social History Tobacco UseTypesPacks/DayYears UsedDateSmoking Tobacco: Never AssessedArea Deprivation IndexAnswerDate RecordedNational Score (1-100), lower number is lower feaj995111/01/2022State Score (1-10), lower number is lower riskNot on file 3Data from: https://www.neighborhoodatlas.[facility]/. Last address used for [address] [place], [place] [address]CommentsUnknownSex and Gender InformationValueDate RecordedSex Assigned at BirthNot on fileLegal LukDqurvl73/14/2022 7:07 PM ESTGender IdentityNot on fileSexual OrientationNot on file Plan of Treatment Health MaintenanceDue DateLast DoneCommentsAnxiety Mnxnhrcnx16/27/2009Depression Frdrwuanp02/27/2009HIV Ocgumeysu19/27/2009Hepatitis C Mnnblrbrc04/27/2009 Cervical Cancer Byjzbdred76/27/2012HPV Vaccine (1 - 3-dose SCDM series) 2018Covid-19 Vaccine ( season)2025Influenza Vaccine (#1) , 08/08/2018, 08/22/2009DTaP,Tdap,Td Vaccine (7 - Td or Tdap)/, 08/09/2018, 04/10/1993, Additional history exists Hepatitis B CykstwmEquexduuw25/01/2004, 03/27/2004, 12/18/2003 Insurance Care Teams Team MemberRelationshipSpecialtyStart DateEnd Ignacio Das MD ReferringFamily Sovnnium91/14/22
--- OUTSIDE RECORDS SUMMARY | 2025-09-11 11:08 | XMS_ITS | CCD ---
Author Organization [facility] CliniSyut Care Team Providers Care Surgical Instruments Inspector Name Role Phone Domingo Snyder MD Unavailable DANIEL MONTGOMERY Attending Unavailable DOMINGO SNYDER Referring Unavailable Domingo Snyder Primary Care Physician [phone] Primary Care Unavailable [...] STEPHANIE RAMIREZ Consulting Unavailable PAY ., DR XIOA Attending Unavailable FARTUN NOVOA Consulting Unavailable VARUN [...] Unavailable BERNIE ., DR TOLBERT Attending Unavailable [place], DR GLEN Alford Consulting Unavailable BERNIE ., [...] Unavailable MD Domingo Snyder Primary Care Provider [phone] MD Arnulfo Aviles Admit Provider MD Arnulfo Aviles Attending Provider Domingo Snyder MD Primary Care Provider [phone] Domingo Snyder MD Attending Provider ADONIS GUERRA Referring Unavailable DOMINGO SNYDER Primary Care Unavailable Domingo Snyder MD Primary Care Provider [phone] Domingo Snyder MD Primary Care Provider [phone] Domingo Snyder MD Attending Provider [phone] Javi Tanner PA-C Attending Provider DOMINGO SNYDER [...] Unavailable Domingo Snyder MD Primary Care Provider [phone] Vj Fraire DO Attending Provider Domingo Snyder Attending Unavailable Domingo Snyder Admitting Unavailable Domingo Snyder Primary Care Unavailable Javi Tanner Admitting Unavailable Javi Tanner Attending Unavailable Vj Fraire Admitting Unavailable Vj Fraire Attending Unavailable JEFFERSON GIBBS Attending Unavailable PATRICK LEIVA Attending Unavailable PATRICK LEIVA Attending Unavailable PATRICK LEIVA Attending Unavailable Domingo Snyder MD Primary Care Provider [phone] Charanjit Riggs Attending Unavaila ble Medications Current Medications MedicationDrug Class(es)DatesSig (Normalized)Sig (Original)benztropine mesylate 1 mg oral tablet (5 sources)Anticholinergic, AntihistamineStart: 46-64-5819gkfitcoxsht 1 mg Tab Refills(s) 0 Start Date: 12/24/22 Status: OrderedStart: 08-13-2022 End: 13-14-7979edfr 1 tablet by mouth twice daily as neededBenztropine 1 mg tablet Discontinued 1 MG PO Twice daily as needed for eps August 13, 2022 12:00am August 16, 2022 11:38ambusPIRone hydrochloride 7.5 mg oral tablet (5 sources)Start: 69-61-1192wsjEFYkqx 7.5 mg oral tablet Refills(s) 0 Start Date: 12/24/22 Status: OrderedStart: 08-13-2022 End: 04-79-7036glkv 3 tablets by mouth twice dailyBuspirone 10 mg tablet Discontinued 30 MG PO Twice daily August 13, 2022 12:00am August 16, 2022 11:38amStart: 08-13-2022 End: 96-62-7302zkrg 30 mg by mouth twice dailyBuspirone Discontinued 30 MG PO Twice daily August 13, 2022 12:00am August 16, 2022 11:38amcefTRIAXone (ROCEPHIN) 1,000 mg in sterile water 10 mL IV syringe (2 sources)Start: 24-52-6074mwbe 100 mg intravenously every twenty-four hours 1,000 mg, IntraVENous, EVERY 24 HOURS, First dose on Julia 01/26/25 at 2044, Administer as slow IV Push over 5 mins Reconstitute 1 g vials with 9.6 mL of designated diluent to produce a 100 mg/mL solution.Start: 01-22-2025 End: 78-10-8746ttnjjtnjaj 10 mg oral tablet (5 sources)Serotonin Reuptake InhibitorStart: 50-67-8867plkthkgazp 10 mg Tab Refills(s) 0 Start Date: 12/24/22 Status: OrderedStart: 08-13-2022 End: 17-08-0805oyfz 1 tablet by mouth twice dailyCitalopram 20 mg tablet Discontinued 20 MG PO Twice daily August 13, 2022 12:00am August 16, 2022 11:52ps036 hr estradiol 0.46525 mg/hr transdermal system (14 sources)EstrogenStart: 04-05-2025 End: 27-69-9080vdinkzahe (Climara) 0.05 MG/24HR Indications: Night sweats Place 1 patch over 7 days on the skin 1 (one) time per week 12 patch 3 04/05/2025 04/05/2026 Activefluconazole 150 mg oral tablet (2 sources)Azole AntifungalStart: 05-15-2025 End: 27-82-8607hfje 1 tablet by mouth once, then take 1 tablet by mouth once fluconazole (Diflucan) 150 MG tablet Indications: Yeast infection Take 1 tablet (150 mg) by mouth 1(one) time for 1 dose This is a 1 time dose, take single tablet by mouth. 1 tablet 1 05/15/2025 05/15/2025 Active1 ml HYDROmorphone hydrochloride 1 mg/ml cartridge (1 source)Opioid AgonistStart: 51-12-5573hfxy 0.5 mg by mouth every three hours [...] pamoate 50 mg oral capsule (5 sources)AntihistamineStart: 24-26-5072vehrWBQspjs pamoate 50 mg Cap Refills(s) 0 Start Date: 12/24/22 Status: OrderedStart: 08-13-2022 End: 54-69-5286glmb 1 capsule by mouth three times daily as needed for anxiety Hydroxyzine Pamoate 50 mg capsule Discontinued 50 MG PO Three times daily as needed for Anxiety August 13, 2022 12:00am August 16, 2022 11:38am ibuprofen 600 mg oral tablet (20 sources)Nonsteroidal Anti-inflammatory DrugStart: 01-29-2025 End: 98-27-9868yrih 1 tablet by mouth three times daily as needed for pain ibuprofen (ADVIL;MOTRIN) 600 MG tablet Take 1 tablet by mouth 3 times daily as needed for Pain 21 tablet 01/29/2025 02/05/2025 ActiveStart: 01-22-2025 End: 44-21-0497iatn 1 dose by mouth epwh456 mg, Oral, ONCE, 1 dose, On 01/22/25 at 0015Start: 37-19-2611xwfs 1 tablet by mouth every eight hoursibuprofen [...] magnesium sulfate 40 mg/ml injection (1 source)Start: 11-65-4179hevdwsdt (PF) injection 2 mg (1 source)Start: 77-71-1857rikaxdpl (PF) injection 2 mgnabumetone 750 mg oral tablet (19 sources)Nonsteroidal Anti-inflammatory DrugStart: 39-22-2153nqotjrvmbi (Relafen) 750 MG tablet Take 750 mg by mouth as needed in the morning and 750 mg as needed in the evening. 07/17/2023 ActiveNo Name (No Known Home Meds) (4 sources)Start: 83-78-3818Aq Name (No Known Home Meds) Active April 07, 2024 11:00pmStart: 31-88-6346Ht Name (No Known Home Meds) Active April 08, 2024 12:00amOLANZapine 15 mg oral tablet (5 sources)Atypical AntipsychoticStart: 82-05-6000ytdirugmdv 15 mg oral tablet Refills(s) 0 Start Date: 12/24/22 Status: OrderedStart: 08-13-2022 End: 98-49-0500edip 1 tablet by mouth at bedtimeOlanzapine 15 mg tablet Discontinued 15 MG PO Bedtime August 13, 2022 12:00am August 16, 2022 11:38amolanzapine 15 MG / samidorphan 10 MG Oral Tablet [Lybalvi] (2 sources)Start: 66-65-8240Tjmwrdw 15 mg-10 mg oral tablet Refill(s) 0 Start Date: 03/20/23 Status: Orderedondansetron (ZOFRAN-ODT) disintegrating tablet 4 mg (2 sources)Start: 61-91-9680sypvczgmdvz (ZOFRAN-ODT) disintegrating tablet 4 mg Start: 84-12-1143nnwqkscafwz (ZOFRAN-ODT) disintegrating tablet 4 mgoxyCODONE hydrochloride 5 mg oral tablet (4 sources)Opioid AgonistStart: 01-22-2025 End: 71-24-0257bhvt 1 tablet by mouth every six hours [...] immediate release tablet 2.5 mgpolyethylene glycol 3350 49282 mg powder for oral solution (2 sources)Osmotic LaxativeStart: 79-10-7918Inbbv: 05-31-3671iicxxbgnp bicarbonate 25 meq effervescent oral tablet (19 sources)Start: 29-06-1181Dsxbp-K 25 MEQ effervescent tablet 06/23/2023 ActivePotassium Chloride (1 source)Start: 64-02-5056pbklpnhgd chloride (KLOR-CON M) extended release tablet 40 mEqQUEtiapine 100 mg oral tablet (5 sources)Atypical AntipsychoticStart: 22-95-6156wgnyccwzus 100 mg Tab Refills(s) 0 Start Date: 12/24/22 Status: OrderedStart: 08-13-2022 End: 30-26-2728Tkqczhstqf 100 mg tablet Discontinued 150 MG PO Bedtime August 13, 2022 12:00am August 16, 2022 11:38amStart: 08-13-2022 End: 43-16-1055afcw 150 mg by mouth at bedtimeQuetiapine Discontinued 150 MG PO Bedtime August 13, 2022 12:00am August 16, 2022 11:38amsulfamethoxazole 800 mg / trimethoprim 160 mg oral tablet (2 sources)Dihydrofolate Reductase Inhibitor Antibacterial, Sulfonamide AntimicrobialStart: 01-22-2025 End: 85-26-1981muce 1 tablet by mouth twice dailysulfamethoxazole-trimethoprim (BACTRIM DS;SEPTRA DS) 800-160 MG per tablet Take 1 tablet by mouth 2times daily for 10 days 20 tablet 01/22/2025 02/01/2025 Active Completed/Discontinued Medications MedicationDrug Class(es)DatesSig (Normalized)Sig (Original)acetaminophen 325 mg oral tablet (2 sources)Start: 82-54-5706165 mg, Oral, EVERY 6 HOURS PRN, Starting on Thu01/26/25 at 2128, Until Discontinued, Pain Mild (1-3), allowed for higher pain score per patient request, Maximum dose of acetaminophen is 4000 mg fromall sources in 24 hours.Start: 67-65-4134ktyeyqxqbhyal (TYLENOL) tablet 650 mg acetaminophen 325 mg [...] prefilled syringe (2 sources)Low Molecular Weight HeparinStart: 24-85-1058akmaqo 40 mg by subcutaneous injection once daily40 [...] sulfate 0.125 mg sublingual tablet (3 sources)Start: 21-58-6078jhws 0.125 mg by mouth every six hours as needed 0.125 mg, Oral, EVERY 6 HOURS PRN, Starting on Thu01/26/25 at 1726, Until Discontinued, Cramping, bladder spasms, stent painStart: 44-16-4869rdvz 1 tablet by mouth every six hours as needed for painhyoscyamine (LEVSIN) 0.125 MG tablet Take 1 tablet by mouth every 6 hours as needed for Cramping (bladder spasms, stent pain) 20 tablet 1 01/22/2025 ActiveK-vescent 25 mEq oral tablet, effervescent (1 source)Start: 74-93-2341eitl 1 tablet by mouth twice dailyK-vescent 25 mEq oral tablet, effervescent 25 mEq = 1 tab(s), Oral, BID, # 30 tab(s), Refills(s) 3,Pharmacy: [facility]/pharmacy #[id number], 168, cm, 03/20/23 10:32:00 EDT, Height/Length Dosing, 95, kg, 03/20/23 10:32:00 EDT, Weight Dosing Start Date: 06/23/23 Status: Orderedprochlorperazine 5 mg/ml injectable solution (2 sources)PhenothiazineStart: 39-39-817700 mg, IntraVENous, EVERY 6 HOURS PRN, Starting on Thu01/27/25 at 1317, Until Discontinued, Nausea,second line after Zofran, If administering IV push, administer at a maximum rate of 5 mg/minute. Patients should remain lying down following administration and be reassessed for relief of nausea and presence of hypotension. Patients should be assisted the first time they get up after administration.Start: 92-40-914614 mg, IntraVENous, EVERY 6 HOURS PRN, Starting [...] mL Midline or CentralLine = 20 mL/lumenStart: 70-55-0213Fbevm: 01-26-2025 End: 15-50-6387OrxzySQEpvu, at 75 mL/hr, CONTINUOUS, Starting on Julia 01/26/25 at 1745, For 12 hoursStart: 01-22-2025 End: 21-47-9536QggvyAKJeqg, at 150 mL/hr, CONTINUOUS, Starting on Thu01/22/25 at 0015tamsulosin hydrochloride 0.4 mg oral capsule (4 sources)alpha-Adrenergic BlockerStart: 38-06-7903fqal 0.4 mg by mouth once daily at mealtime0.4 mg, Oral, DAILY, First dose on Thu01/27/25 at 0900, Until Discontinued, Do not crush or break. Give 30 minutes after a full meal to limit risk of orthostatic hypotension/falls. Problems Active Problems Problem ClassificationProblemDateDocumented DateEpisodic/ChronicAbdominal hernia (1 source)Umbilical hernia without obstruction or gangrene; Translations: [UMBILICAL HERNIA W/O OBST/GANGRENE]Onset: 37-38-3894LhuqprjeVxjroyjrog disorders (2 sources)Reaction to severe stress, unspecified; Translations: [Reaction to severe stress. unspecified]Onset: 70-41-9393SqvpeswUzlggdz disorders (20 sources)Generalized anxiety disorder; Translations: [Anxiety]Onset: 85-03-8305VqfypmsRsoysbyainnsj symptoms and ill-defined conditions (20 sources)Urge incontinence of urine; Translations: [Presence of urogenital implants]Onset: 038836-85-1713ErabgmuTmcoockknwoe; infection of eye (except that caused by tuberculosis or sexually transmitteddisease) (2 sources)Hordeolum externum of upper eyelid of right eye; Translations: [Hordeolum externum right upper eyelid]77-08-1273OphcyyvtVvzksnexn disorders (20 sources)Excessive and frequent menstruation with regular cycle; Translations: [Menorrhagia]Onset: 35-71-3257TgkkjkkNdcv disorders (20 sources)Major depressive disorder, single episode, unspecified; Translations: [Major depressive disorder, recurrent, unspecified]Onset: 204118-75-8345VoxvldrFequcd and vomiting (4 sources)Nausea with vomiting, unspecified; Translations: [NAUSEA WITH VOMITING UNSPECIFIED]Onset: 04-74-6346CllrnidkAhephzimv of unspecified nature or uncertain behavior (4 sources)Neoplastic disease; Translations: [Neoplasm of unspecified behavior of bone, soft tissue, and skin]69-55-9107FgcvsnpcRreoe aftercare (1 source)Other custodial (current) drug therapy; Translations: [OTH TALENT ADVISOR CURRENT DRUG THERAPY]Onset: 79-88-0602SpishiwdIeajd aftercare (1 source)buttermaker (current) use of oral hypoglycemic drugs; Translations: [LONGTERM USE ORAL HYPOGLYCEMIC DX]Onset: 33-51-2657XzxgtpktSmeik aftercare (4 sources)Removal of sutures done; Translations: [Encounter for removal of sutures]59-60-7969XeulaoeuNdydl diseases of kidney and ureters (3 sources)Cyst of qpfown23-18-2404LzotfypbFptrm diseases of kidney and ureters (2 sources)Vesicoureteral-reflux, unspecified; Translations: [Vesicoureteral- reflux, unspecified]Onset: 89-58-8609PpgexpghXxqeg diseases of kidney and ureters (2 sources)Vesicoureteric reflux; Translations: [Vesicoureteral-reflux, unspecified]48-34-0856SjvxnbnkNrhkk diseases of kidney and ureters (2 sources)Hydronephrosis with renal and ureteral calculous obstruction; Translations: [Hydronephrosis]Onset: 210473-95-6857WdgaqcahRvqta diseases of kidney and ureters (1 source)Hydronephrosis; Translations: [Unspecified hydronephrosis]Onset: 231096-67-6366NkcnqbfqDpzum nervous system disorders (19 sources)Entrapment of left ulnar nerve; Translations: [Lesion of ulnar nerve, left upper limb]Onset: 538650-08-7461SruoftzPjzbu nervous system disorders (19 sources)Lesion of ulnar nerve; Translations: [Lesion of ulnar nerve, unspecified upper limb]Onset: 807926-97-2336DkxahryAlbhn nervous system disorders (5 sources)Acute postoperative pain; Translations: [Other acute postprocedural pain]Onset: 315730-65-0623QagzudmpYsryh nervous system disorders (1 source)Other acute postprocedural pain; Translations: [Other acute postprocedural pain]Onset: 48-14-8491XnjlqtkuYwusk nutritional; endocrine; and metabolic disorders (3 sources)Body mass index 30+ - kdvduxj46-08-2442VqwpbdjNlclg nutritional; endocrine; and metabolic disorders (1 source)Morbid (severe) obesity due to excess calories; Translations: [MORBID SEVERE OBES D/T EXCESS ROSS]Onset: 40-21-8023IwmusfaOlhov nutritional; endocrine; and metabolic disorders (1 source)Body mass index (BMI) 34.0-34.9, adult; Translations: [BODY MASS INDEX BMI 34.0-34.9 ADULT]Onset: 93-45-1249VyhwoflKhbrq nutritional; endocrine; and metabolic disorders (1 source)Body mass index (BMI) 39.0-39.9, adult; Translations: [BODY MASS INDEX BMI 39.0-39.9 ADULT]Onset: 80-80-5623RjmuynzTniuk nutritional; endocrine; and metabolic disorders (1 source)Body mass index (BMI) 40.0-44.9, adult; Translations: [BODY MASS INDEX BMI 40.0-44.9 ADULT]Onset: 02-17-6866YaqiptxHuoha nutritional; endocrine; and metabolic disorders (19 sources)Body mass index 40+ - severely obese; Translations: [Body mass index (BMI) 40.0-44.9, adult]Onset: 118844-40-9604ZbomsloOpcgc screening for suspected conditions (not mental disorders or infectious disease) (5 sources)Encounter for screening for malignant neoplasm of cervix; Translations: [Other specified abnormal findings of blood chemistry]Onset: 90-90-4568OozqvnmzLmxbv skin disorders (2 sources)Night sweats; Translations: [Generalized hyperhidrosis]04-05-2025 EpisodicResidual codes; unclassified (1 source)Acquired absence of other specified parts of digestive tract; Translations: [ACQ ABSENCE OTH PART DIGESTV TRACT]Onset: 72-12-1682Haoxbpol Suicide and intentional self-inflicted injury (8 sources)Suicidal ideations; Translations: [Suicidal thoughts]Onset: 42-89-7166RiytpdmbRuscgrzxbnow (1 source)NO SHOWUnclassified (3 sources)Finding of sensation of bkfmwpo80-03-7306Qfuipylgefed (1 source)CONTACT W/AND (SUSP) EXPOS COVID-19; Translations: [CONTACT W/AND (SUSP) EXPOS COVID-19]Onset: 11-04-2022 Past or Other Problems Problem ClassificationProblemDateDocumented DateEpisodic/ChronicAbdominal pain (20 sources)Flank pain; Translations: [Unspecified abdominal pain]Onset: 962216-09-8586BbgkewyjNzhyhzgth and vision defects (19 sources)Astigmatism; Translations: [Unspecified astigmatism, unspecified eye]Onset: 217621-79-2325NchmddzfApqkypbm of urinary tract (20 sources)Kidney stone; Translations: [Personal history of urinary calculi] Onset: 136595-08-4599GzrrpfuwGcezfa of cervix (2 sources)Low grade squamous intraepithelial lesion on cytologic smear of cervix (LGSIL); Translations: [Highgrade squamous intraepithelial lesion on cytologic smear of cervix (HGSIL)]Onset: 33-03-5546XgtstuniHuizxyetnmolv and procreative management (19 sources)Intrauterine contraceptive device in situ; Translations: [Presence of (intrauterine) contraceptive device]Onset: 141744-43-0448Fnjvsvit Deficiency and other anemia (1 source)Iron deficiency anemia, unspecified; Translations: [IRON DEFICIENCY ANEMIA UNSPECIFIED]Onset: 47-57-0862FdegceajLhntubxy or abnormal glucose tolerance complicating ; childbirth; or the puerperium (19 sources)History of gestational diabetes mellitus; Translations: [Personal history of gestational diabetes]Onset: 47-75-012995027081-53-2956JjmlehwfTbekw or threatened labor (19 sources)Term delivered; Translations: [Term delivery with labor, third trimester, not applicable or unspecified]Onset: 08-06-2018 71-89-0736QyhtfnytFdfut and electrolyte disorders (2 sources)Dehydration; Translations: [Hypo-osmolality and hyponatremia]Onset: 40-99-0809JhzvuxkzQhadrofionsoo symptoms and ill-defined conditions (20 sources)Dysuria; Translations: [Increased frequency of urination]Onset: 036312-36-9138RphdleudOscdbdjionnju and screening for infectious disease (1 source)Encounter for screening for human papillomavirus (HPV); Translations: [ENC SCREENING HUMAN PAPILLOMAVIRUS]Onset: 45-39-7926XnterkikIehrpekudcwt breast conditions (19 sources)Lump in left breast; Translations: [Unspecified lump in the left breast, unspecified quadrant]Onset: 853889-77-2757HjofngehZovzf aftercare (19 sources)Patient encounter status; Translations: [Encounter for follow-up examination after completed treatment for conditions other than malignant neoplasm]Onset: 390180-49-3742UlfirzvaZnefu complications of (19 sources)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, non-Rh blood-group incompatibility affecting ; Translations:[Maternal care for other isoimmunization, unspecified trimester, not applicable or unspecified]Onset: EpisodicOther connective tissue disease (19 sources)Muscle pain; Translations: [Myalgia, unspecified site]Onset: 403905-34-4787AcnklgfmXbfre diseases of bladder and urethra (20 sources)Urethral stricture; Translations: [Unspecified urethral stricture, female]Onset: 965372-88-0050JsxejxjrBmcuo diseases of kidney and ureters (19 sources)Stricture of ureter; Translations: [Crossing vessel and stricture of ureter without hydronephrosis]Onset: 948605-69-5497XrqzkosiHqpss female genital disorders (19 sources)Retroflexed uterus; Translations: [Malposition of uterus]Onset: 518118-47-5994MmrjqttsFtpgu infections; including parasitic (19 sources)History of chlamydial infection; Translations: [Personal history of other infectious and parasitic diseases]Onset: 590635-43-6444CiiolcjgOvuto nutritional; endocrine; and metabolic disorders (19 sources)Abnormal weight gain; Translations: [Abnormal weight gain]Onset: 384705-73-0621DwezabwvYswar nutritional; endocrine; and metabolic disorders (19 sources)Overweight; Translations: [Overweight]Onset: EpisodicOther and delivery including normal (19 sources)Intrauterine ; Translations: [Encounter for supervision of normal , unspecified, unspecified trimester]Onset: EpisodicOther skin disorders (19 sources)Mass of scalp; Translations: [Localized swelling, mass and lump, head]Onset: 685988-21-7928AucrsjbeUydxk upper respiratory infections (19 sources)Streptococcal sore throat; Translations: [Streptococcal pharyngitis] Onset: 902589-13-5019JjyfmlrtBbkoodz cyst (1 source)Other ovarian cyst, right side; Translations: [OTHER OVARIAN CYST RIGHT SIDE]Onset: 34-62-9800AkdexrgqTnrkgpbkw; thrombophlebitis and thromboembolism (19 sources)Superficial thrombophlebitis; Translations: [Phlebitis and thrombophlebitis of unspecified site]Onset: 832102-75-4967Alrdnhim Septicemia (except in labor) (1 source)Sepsis due to streptococcus, group B; Translations: [SEPSIS DUE TO STREPTOCOCCUS GROUP B]Onset: 25-43-4555GuxnjyoeKurdjoy and strains (20 sources)Sprain of calcaneofibular ligament of left ankle, initial encounter; Translations: [Sprain of calcaneofibular ligament]Onset: 24-59-6402Pkeobvpx Urinary tract infections (20 sources)Pyelonephritis; Translations: [Urinary tract infectious disease] Onset: 139122-42-6724Fqnbvisy Results Test NameValueInterpretationReference RangeFacilityNo Panel Informationon 81-61-2618Siwclo length (cm): 0.7 Lesion width (cm): 0.7 [...] uncontrollable bleeding, or complications. Dressing type: pressure dressingRusk Rehabilitation CenterNo Panel InformationOrdered By: Falguni Morris on 00-45-1336MDVYRusk Rehabilitation CenterUrine Cultureon 05-05-2025 Bacteria identified Cx Nom (U)ORGANISM: Citrobacter freundii complex (O:CITFRC) [place] Count 75,000 Aerobic ANASTASIA Charge (NMIC56) SUSCEPTIBILITY [...] RESISTANT TO ALL B-LACTAM DRUGS. PERFORMED BY: [place] [address] PATHOLOGIST BRUSH MAKER CALLUM ALVA M.D.[facility] Physician GroupComment on above: Performed By: #### CUU #### [place] [address] USAIGP,APTIMA HPV,AGE GDLNon 41-17-7271RAA GDLN ACOG TESTING Note.[facility] HealthcareComment on above:TESTS RESULT FLAG UNITS REF RANGE LAB Clinician Provided Cytology Information Source.............Vagina No. of containers..01 ThinPrep Vial Age Brent JIMENEZ Radha... 3065 FLAG LEGEND: L-Low Normal,H-High Normal,LL-Alert Low,HH-Alert High <-Panic Low,>-Panic High,A-Abnormal,AA-Critical Abnormal Performed at: 01 =G [address] [place] [address] Shereen Caal MD, HPV APTIMANegativeNegativeNOMS HealthcareComment on above:This nucleic acid amplification test detects fourteen high- risk HPV types (16,18,31,33,35,39,45,51,52,56,58,59,66,68) without differentiation. Performed at: = - [address] [id number] Program Assistant: Shereen Caal MD, Phone: [phone] Performed at: - [address] [id number] Program Assistant: Shereen Caal MD, Phone: [phone] IGP, APTIMA HPV, RFX 16/18,45NoteAbnormal.NOMS HealthcareComment on above:TESTS RESULT FLAG UNITS REF RANGE LAB DIAGNOSIS: [A] 02 EPITHELIAL CELL ABNORMALITY. ATYPICAL SQUAMOUS CELLS OF UNDETERMINED SIGNIFICANCE (ASC-US). Recommendation: [A] 02 Suggest follow up as clinically appropriate. Specimen adequacy: 02 Satisfactory for evaluation. Performed by: 02 Tamiko Barrow, Trick Rodeo Rider ([facility]) Electronically si... Capri Boston MD, [...] <-Panic Low,>-Panic High,A-Abnormal,AA-Critical Abnormal Performed at: [address] [address] Shereen Caal MD, Interpretation and review of laboratory resultsAbnoRoxborough Memorial Hospital SPATULA-ALONE VAGINA [facility] HospitalNo Panel Informationon 81-91-8230Nvxw of biopsy: punch Informed consent: discussed and [...] Specimen sent for H&E Number of sutures: [address] [place], [place] [address]Type of biopsy: tangential Informed consent: discussed and [...] Photo taken Amount of lidocaine used: 1.0 [facility] SouthParkOutside Recordson 08-69-8264Nwqfdix [id number]#1.00[facility] Health CenterCoding Summaryon 96-00-6031Loppgd SummaryHTMLBase 64 LhcmrfjuIBs2gUb+PGhlYWQ+SU3QWBYvS37uhAVwbP9cI0YSTTkJZvkjQRVQBVcCZgEotqXiPU1pjISp ZXJu [file] c2U (more content not included)...[facility] HospitalProvider Orderson 70-62-6079Mvdusgft [id number]#1.00OTUniversity Hospitals Samaritan [facility] Urineon 03-18-2025 Urine>100,000 cfu/ml Escherichia coli ORGANISM [...] Tobra S <=2 Verified Tri/Sulf S <=2/38 VerifiedOhio Valley Surgical HospitalComment on above:Performed By: #### [id number] #### [facility] ([facility]) [address], [place] [address]Nsafdyrh Orderson 36-28-9759Tegagckp Orders [id number]#1.00OT[facility] [facility] Cult,Bloodon 15-02-6397Retl,BloodSpecimen Description .BLOOD Special Requests Culture NO GROWTH 5 DAYS Report Status FINAL 02/01/2025[facility] HospitalComment on above:Performed By: #### BC #### [facility] [address] [place] [address] [id number] Program Assistant: NABOR Prettyult,BloodSpecimen Description .BLOOD Special Requests RIGHT HAND 1ML Culture NO GROWTH 5 DAYS Report Status FINAL 02/01/2025NoCleveland Clinic Fairview HospitalComment on above:Performed By: #### BC #### [facility] [place] [address] Program Assistant: Alejandro Salazar [facility]AHLEQUAHoding Summaryon [id number] Summary HTMLBase 64 SynvdemyWXl9tDu+PGhlYWQ+VA6PZXWpU20ckDXdaN3iM3LRKDdHJhwoGUFHDMtPInHivjCfDI2ujBBa ZXJu [file] LWN (more content not included)...[facility] Urineon 01-28-2025 UrineUrine Culture ordered as a result of parameters set on specific urine dip and urine microsopic results. Mixed skin, or urogenital daiana. Clinically insignificantOhio Valley Surgical Hospital Comment on above:Performed By: #### [id number], [id number], [id number], [id number], [id number] #### [facility] (DEFAULT) [address] [place], [place] [address]Ewac,Urineon [id number],UrineSpecimen Description .BLADDER URINE FROM CYSTOSCOPY Special Requests Site: Urine Culture NO GROWTH Report Status FINAL 01/28/2025[facility] HospitalComment on above:Performed By: #### BMP #### [facility] [address] [place] [address] Program Assistant: NABOR Prettywil[facility], Urineon 98-27-6031Xngtxqbycsgje identified Cx Nom (Unsp spec)NO GROWTHBon [facility])Contactual [facility] HospitalService comment (Unsp spec) [Interp]Site: UrineBon [facility])Contactual [facility] HospitalSpecimen Description .BLADDER URINE FROM CYSTOSCOPYBon [facility]Tr[facility] Mapidy [facility] Basic Metabolic Profon 44-84-0089Vfxql gap [Moles/Vol]9 mmol/LNormal9-16[facility] HospitalComment on above:Performed By: #### BMP #### [address] [address] Program Assistant: NABOR Prettyalcium [Mass/Vol]8.3 mg/dLLow8.6-10.4M[facility]field HospitalComment on above:Performed By: #### BMP #### [address] [address] Program Assistant: NABOR Prettyhloride [Moles/Vol]108 mmol/JArny92-386MqfexMansfield HospitalComment on above:Performed By: #### BMP #### [facility] [address] [place] [address] Program Assistant: Alejandro Salazar MDCO2 [Moles/Vol]22 mmol/PFexrrh29-70FpwhfMansfield HospitalComment on above:Performed By: #### BMP #### [address] [address] Program Assistant: NABOR Prettyreatinine [Mass/Vol]0.7 mg/dLNormal0.6-0.9M[facility]field HospitalComment on above:Performed By: #### BMP #### [address] [address] Program Assistant: Alejandro Salazar MDGFR/1.73 sq M.predicted among non-blacks MDRD (S/P/Bld) [Vol rate/Area]mL/min/{1.73_m2}Normal>60M[facility]field HospitalComment on above:Result Comment: These results are not [...] renal tubular secretion.Performed By: #### BMP #### [facility] [address] [place] [address] Program Assistant: Alejandro Salazar MDGlucose [Mass/Vol]85 mg/xSRuaqxy73-90DegdbPomona Valley Hospital Medical CenterComment on above:Performed By: #### BMP #### [address] [address] Program Assistant: IBIS Prettyotassium [Moles/Vol]3.9 mmol/LNormal3.7-5.3 [facility] HospitalComment on above:Performed By: #### BMP #### [facility] [employer] [address] [place] [address] Program Assistant: LELE Prettyodium [Moles/Vol]139 mmol/NXzjcfa663-079AofztMansfield HospitalComment on above:Performed By: #### BMP #### [facility] [employer] [address] [place] [address] Program Assistant: Alejandro Salazar MDUrea nitrogen [Mass/Vol]11 mg/dLNormal6-20[facility]field HospitalComment on above:Performed By: #### BMP #### [address] [address] Program Assistant: Alejandro Salazar MDBasi metabolic panelon 73-25-5581Gwnno gap [Moles/Vol]9 mmol/L9 - 16 mmol/LBon SecHuey P. Long Medical Center HealthCalcium [Mass/Vol]8.3 mg/dLLow8.6 - 10.4 mg/dLBon [facility] HealthChloride [Moles/Vol]108 mmol/L High98 - 107 mmol/LBon Secours [facility]cy HealthCO2 [Moles/Vol]22 mmol/L20 - 31 mmol/LBon [facility] HealthCreatinine [Mass/Vol]0.7 mg/dL0.6 - 0.9 mg/dLBon Secours [facility] Generaly HealthEst, Glom Filt Rate- PINFBon SecLicking Memorial HospitalComment on above: These results are not [...] secretion. Glucose [Mass/Vol]85 mg/dL74 - 99 mg/dLBon SecRocky Mountain Biosystemsy HireVueInterpretation and review of laboratory resultsAbnormalBon Secours Mercy HealthPotassium [Moles/Vol]3.9 mmol/L3.7 - 5.3 mmol/LBon Secours Mercy HealthSodium [Moles/Vol] 139 mmol/L136 - 145 mmol/LBon Secours Mercy HealthUrea nitrogen [Mass/Vol]11 mg/dL6 - 20 mg/dLBon Secours Mercy HireVueBon Secours [facility] GeneralWeOrder LTDCBC auto differentialon [id number] (Bld) [#/Vol]0.04 10*3/uLBon Secours Mercy HireVueBasophils/100 WBC (Bld)1 %0 - 2 %[facility] HealthEosinophils (Bld) [#/Vol]0.14 10*3/uLBon Secours Mercy HealthEosinophils/100 WBC (Bld)4 %1 - 4 % [facility] HireVueErythrocyte distribution width (RBC) [Ratio]12.6 %11.8 - 14.4 %[facility] HireVueHematocrit (Bld) [Volume fraction]34.2 %Low36.3 - 47.1 %[facility] TaskEasyy HireVueHemoglobin (Bld) [Mass/Vol]10.7 g/dLLow11.9 - 15.1 g/dLBon Secours Mercy HireVueImmature granulocytes (Bld) [#/Vol][facility] HireVueImmature granulocytes/100 WBC (Bld)0 %0Bon SecContactual Health Interpretation and review of laboratory resultsAbnormalBon Secours TaskEasyy Health Lymphocytes/100 WBC (Bld)55 %High24 - 43 %[facility]Easy[facility] Lymphocytes/100 WBC (Bld)2.11 %[facility] TaskEasyy HireVueMCH (RBC) [Entitic mass] 27.1 pg25.2 - 33.5 pgBon [facility] HospitalHC (RBC) [Mass/Vol]31.3 g/dL28.4 - 34.8 g/dLBon [facility] Community HospitalV (RBC) [Entitic vol]86.6 fL82.6 - 102.9 fL [facility] Medical CenterMonocytes/100 WBC (Bld)9 %3 - 12 %Bon [facility] HospitalMonocytes/100 WBC (Bld)0.35 %Bon [facility] HospitalNeutrophils/100 WBC (Bld)31 %Low36 - 65 %Bon [facility] HospitalNucleated RBC/100 WBC (Bld) [Ratio] 0 %0.0 per 100 WBCSouthside Regional Medical CenterPlatelet mean volume (Bld) [Entitic vol]9.1 fL8.1 - 13.5 fLUva Health University Hospital HealthPlatelets (Bld) [#/Vol]238 10*3/uLBon [facility] HospitalRBC (Bld) [#/Vol]3.95 10*6/uL3.95 - 5.11 m/uLSouthside Regional Medical CenterSegmented neutrophils/100 WBC (Bld)1.21 %LowBon [facility] HospitalWBC other (Bld) [#/Vol]3.9Bon [facility] HospitalCBC with Diffon [id number]. Basophil0.04 k/uLNormal0.00-0.20M[facility]field HospitalComment on above:Performed By: #### BMP #### [facility] [address] [place] [address] Program Assistant: J Carlos Pretty.Imm.Granulocyte<0.68Uyaoqg3.00-0.30Mansfield HospitalComment on above:Performed By: #### BMP #### [facility] [address] [place], [place] [address] Program Assistant: J Carlos Pretty.Neutrophil (Seg)1.21 k/uLLow1.50-8.10M[facility]field HospitalComment on above:Performed By: #### BMP #### [address] [address] Program Assistant: Alejandro Salazar MDBasophils/100 WBC (Bld)1 %Normal0-2MPomona Valley Hospital Medical CenterComment on above:Performed By: #### BMP #### [place] [address] Program Assistant: Alejandro Salazar MDEosinophils (Bld) [#/Vol]0.14 10*3/uLNormal 0.00-0.44M[facility]field HospitalComment on above:Performed By: #### BMP #### [address] [address] Program Assistant: EDUARDO Prettyosinophils/100 WBC (Bld)4 %Normal1-4M[facility]field HospitalComment on above:Performed By: #### BMP #### [address] [address] Program Assistant: Alejandro Salazar MDErythrocyte distribution width (RBC) [Ratio]12.6 %Bdnqmh77.8-14.4M[facility]field HospitalComment on above:Performed By: #### BMP #### [place] [address] Program Assistant: Alejandro Salazar MDHematocrit (Bld) [Volume fraction]34.2 %Low 36.3-47.1MPomona Valley Hospital Medical CenterComment on above:Performed By: #### BMP #### [place] [address] Program Assistant: Alejandro Salazar MDHemoglobin (Bld) [Mass/Vol]10.7 g/dLLow11.9-15.1 [facility] HospitalComment on above:Performed By: #### BMP #### [address] [address] Program Assistant: Ara Prettymature granulocytes/100 WBC (Bld)0 %Normal0 [facility] HospitalComment on above:Performed By: #### BMP #### [address] [address] Program Assistant: Alejandro Salazar MDLymphocytes (Bld) [#/Vol]2.11 10*3/uLNormal 1.10-3.70M[facility] HospitalComment on above:Performed By: #### BMP #### [address] [address] Program Assistant: Yanick Prettymphocytes/100 WBC (Bld)55 %Arne96-83XgomcMansfield HospitalComment on above:Performed By: #### BMP #### [address] [address] Program Assistant: LIANA PrettyCH (RBC) [Entitic mass]27.1 naPbwxyw56.2-33.5 [facility] HospitalComment on above:Performed By: #### BMP #### [address] [address] Program Assistant: LIANA PrettyCHC (RBC) [Mass/Vol]31.3 g/qOCiwvri46.4-34.8 [facility] HospitalComment on above:Performed By: #### BMP #### [address] [address] Program Assistant: LIANA PrettyCV (RBC) [Entitic vol]86.6 lGZwykks24.6-102.9 [facility] HospitalComment on above:Performed By: #### BMP #### [address] [address] Program Assistant: Alejandro Salazar MDMonocytes (Bld) [#/Vol]0.35 10*3/uLNormal 0.10-1.20M[facility]field HospitalComment on above:Performed By: #### BMP #### [address] [address] Program Assistant: LIANA Prettyonocytes/100 WBC (Bld)9 %Normal3-12[facility] HospitalComment on above:Performed By: #### BMP #### [address] [address] Program Assistant: Alejandro Salazar MDNeutrophil (Seg)31 %Baq23-95UoiloMansfield HospitalComment on above:Performed By: #### BMP #### [address] [address] Program Assistant: Alejandro Salazar MDNRBC Automated0.0 per 100 WBCNormal0.0M[facility]field HospitalComment on above:Performed By: #### BMP #### [address] [address] Program Assistant: IBIS Prettylatelet mean volume (Bld) [Entitic vol]9.1 fL Normal8.1-13.5M[facility]field HospitalComment on above:Performed By: #### BMP #### [address] [address] Program Assistant: Alejandro Salazar MDPlatelets (Bld) [#/Vol]238 10*3/lKUhflwq843-519 [facility] HospitalComment on above:Performed By: #### BMP #### [address] [address] Program Assistant: Alejandro Salazar MDRBC (Bld) [#/Vol]3.95 10*6/uLNormal3.95-5.11 [facility] HospitalComment on above:Performed By: #### BMP #### [facility] [address] [place] [address] Program Assistant: FIFI Pretty (d) [#/Vol]3.9 10*3/uLNormal3.5-11.3[facility] Community HospitalComment on above:Performed By: #### BMP #### [facility] [address] [place] [address] Program Assistant: Alejandro Salazar [facility]AHonsmad[facility] health Formson 59-71-3410Abvblau Forms [id number]#1.00OTGTUpper Valley Medical Center Cult,Urineon 51-39-0778Jqqr,UrineSpecimen Description .URINE Culture NO SIGNIFICANT GROWTH Report Status FINAL 01/27/2025NoCleveland Clinic Fairview HospitalComment on above:Performed By: #### BMP #### [facility] [address] [place] [address] Program Assistant: NABOR Prettyulture, Urineon 73-06-2190Hwakhpgnezspu identified Cx Nom (Unsp spec)NO SIGNIFICANT GROWTHUva Health University Hospital HireVue Specimen Description.URINEBon [facility] Mapidy [facility] HospitalBon [facility] JosephSkyscanner [facility] Brentwood HospitalFLUORO FOR SURGICAL PROCEDURESon [id number] FOR SURGICAL PROCEDURESRadiology exam is complete. No Radiologist dictation. Please follow up with ordering provider. Final resultNormProvidence HospitalGuidance-- during surgeryon 45-43-3101Rwgewntne exam is complete. No Radiologist dictation. Please follow up with ordering provider. PN RIS CONSOLIDATED.Auto Diff 1on 70-70-5233Zrkc Cascade %10 %Normal1-[address] [place], [place] [address]Comment on above:Performed By: #### [id number], [id number], [id number], 54697299, [id number] #### [facility] (DEFAULT) [address], [place] [address]Mcme Abs#0.0 f18Pouumq5.0-0.2[facility] hospital HospitalComment on above:Performed By: #### 3724594, [id number], 9156008965, 96322645, 791134279 #### [facility] (DEFAULT) [address] [place] [address]Kapjohqmp/100 WBC (Bld)0.7 %Normal0.2-2.0[facility] Comment on above:Performed By: #### 1169884, [id number], [id number], [id number], [id number] #### [facility] (DEFAULT) [address] [place] [address]Qab Abs#0.1 u07Kzwhtu9.0-0.4[facility] HospitalComment on above:Performed By: #### 6717474, [id number], [id number], 98821417, 966689848 #### [facility] (DEFAULT) [address] [place] [address]Nrzmynwvczl/100 WBC (Bld)2.4 %Normal0.9-4.0[facility] HospitalComment on above:Performed By: #### 9689660, [id number], 2584149902, 12520928, 744189957 #### [facility] (DEFAULT) [address] [place] [address]Vorft Abs#1.8 c78Cktpyv6.3-2.9[facility] HospitalComment on above:Performed By: #### 8093341, [id number], 2371288280, 82358080, 658543084 #### [facility] (DEFAULT) [address] [place] [address]Dvktftdojry/100 WBC (Bld)38 %Lvrjrm47-86[facility] Comment on above:Performed By: #### 4181672, [id number], 7574101044, 82045599, 822907743 #### [facility] (DEFAULT) [address] [place] [address]Zryw Abs#0.5 u32Oqxmww6.0-0.8[facility] Private HospitalComment on above:Performed By: #### 7457527, [id number], 8987429185, 52257467, 483779076 #### [facility] (DEFAULT) [address] [place] [address]Szkl Abs#2.4 m53Lpbutl7.5-9.2MKettering Health Greene MemorialComment on above:Performed By: #### 9805140, [id number], 1045999629, 63099352, 351382823 #### [facility] (DEFAULT) [address] [place] [address]Tkrrqcrhlxq/100 WBC (Bld)49 %Orfseh29-97Hhovjukf Hospital Comment on above:Performed By: #### 6353130, [id number], 0118676724, 93214856, 034077227 #### [facility] (DEFAULT) [address] [place] [address]Hbenp Metabolic Panelon 95-91-4178Jqklb gap [Moles/Vol]12 mmol/L9 - 16 mmol/LBon [facility] JosephSkyscanner HealthCalcium [Mass/Vol]8.6 mg/dL8.6 - 10.4 mg/dLBon [facility] St. JosephSkyscanner HealthChloride [Moles/Vol]106 mmol/L98 - 107 mmol/LBon [facility] [address] JosephSkyscanner HealthCO2 [Moles/Vol]21 mmol/L20 - 31 mmol/LBon [facility] HospitalCreatinine [Mass/Vol]0.9 mg/dL0.6 - 0.9 mg/dLBon [facility] HealthEst, Glom Filt Rate87- PINFBon [facility] Community HospitalComment on above: These results are [...] that affects renal tubular secretion. Glucose [Mass/Vol]126 mg/xWApwc87 - 99 mg/dLBon [facility] Interpretation and review of laboratory resultsAbnormalSouthside Regional Medical Center Potassium [Moles/Vol]3.7 mmol/L3.7 - 5.3 mmol/LBon [facility] HospitalSodium [Moles/Vol]139 mmol/L136 - 145 mmol/LBon [facility] HospitalUrea nitrogen [Mass/Vol]12 mg/dL6 - 20 mg/dLBon [facility] Basic Metabolic Profon 55-59-5385Fhwvd gap [Moles/Vol]12 mmol/LNormal9-16[facility] HospitalComment on above:Performed By: #### BMP #### [facility] [address] [place] [address] Program Assistant: NABOR Prettyalcium [Mass/Vol]8.6 mg/dLNormal8.6-10.4[facility] HospitalComment on above:Performed By: #### BMP #### [facility] [address] [place] [address] Program Assistant: NABOR Prettyhloride [Moles/Vol]106 mmol/SFksivp71-305GhmpuMansfield HospitalComment on above:Performed By: #### BMP #### [facility] [address] [place] [address] Program Assistant: Alejandro Salazar MDCO2 [Moles/Vol]21 mmol/SKerura33-21XiwarMansfield HospitalComment on above:Performed By: #### BMP #### [facility] [address] [place] [address] Program Assistant: NABOR Prettyreatinine [Mass/Vol]0.9 mg/dLNormal0.6-0.9[facility] HospitalComment on above:Performed By: #### BMP #### [facility] [address] [place] [address] Program Assistant: Alejandro Salazar MDGFR/1.73 sq M.predicted among non-blacks MDRD (S/P/Bld) [Vol rate/Area]87 mL/min/{1.73_m2}Normal>60[facility] HospitalComment on above:Result Comment: These results are not [...] renal tubular secretion.Performed By: #### BMP #### [facility] [employer] [address] [place] [address] Program Assistant: Alejandro Salazar MDGlucose [Mass/Vol]126 mg/vYWpue00-90RtfiiPomona Valley Hospital Medical CenterComment on above:Performed By: #### BMP #### [place] [address] Program Assistant: IBIS Prettyotassium [Moles/Vol]3.7 mmol/LNormal3.7-5.3 [facility] HospitalComment on above:Performed By: #### BMP #### [facility] [employer] [address] [place] [address] Program Assistant: Alejandro Salazar MDSodium [Moles/Vol]139 mmol/GCvljpm254-297EqydqMansfield HospitalComment on above:Performed By: #### BMP #### [facility] [employer] [address] [place] [address] Program Assistant: Alejandro Salazar MDUrea nitrogen [Mass/Vol]12 mg/dLNormal6-20[facility] HospitalComment on above:Performed By: #### BMP #### [facility] [employer] [address] [place] [address] Program Assistant: Vianey Pretty 98-83-1186Ybdbalvywqg distribution width (RBC) [Ratio]12.7 %11.8 - 14.4 %[facility] Regional Medical CenterHematocrit (Bld) [Volume fraction]38.1 %36.3 - 47.1 %[facility] Regional Medical CenterHemoglobin (Bld) [Mass/Vol] 12 g/dL11.9 - 15.1 g/dLBon [facility] Community HospitalH (RBC) [Entitic mass]27.9 pg 25.2 - 33.5 pgBon [facility] Community HospitalHC (RBC) [Mass/Vol]31.5 g/dL28.4 - 34.8 g/dLBon [facility] Community HospitalV (RBC) [Entitic vol]88.6 fL82.6 - 102.9 fLSouthside Regional Medical CenterNucleated RBC/100 WBC (Bld) [Ratio]0 %0.0 per 100 WBCSouthside Regional Medical CenterPlatelet mean volume (Bld) [Entitic vol]9 fL8.1 - 13.5 fLSouthside Regional Medical CenterPlatelets (Bld) [#/Vol]261 10*3/uLSouthside Regional Medical Center RBC (Bld) [#/Vol]4.3 10*6/uL3.95 - 5.11 m/uLSouthside Regional Medical CenterWBC other (Bld) [#/Vol]5.9Bon [facility] Regional HospitalErythrocyte distribution width (RBC) [Ratio]12.7 %Dnpldj00.8-14.4[facility] Community HospitalComment on above:Performed By: #### BMP #### [facility] [address] [place], [place] [address] Program Assistant: Alejandro Salazar MDHematocrit (Bld) [Volume fraction]38.1 %Normal 36.3-47.1MercCollege Medical CenterComment on above:Performed By: #### BMP #### [facility] [address] [place], [place] [address] Program Assistant: Alejandro Salazar MDHemoglobin (Bld) [Mass/Vol]12.0 g/dLNormal 11.9-15.1MercCollege Medical CenterComment on above:Performed By: #### BMP #### [address] [address] Program Assistant: LIANA PrettyCH (RBC) [Entitic mass]27.9 fhHhzsxi28.2-33.5 [facility] HospitalComment on above:Performed By: #### BMP #### [address] [address] Program Assistant: PINA PrettyC (RBC) [Mass/Vol]31.5 g/nFIwzaee95.4-34.8 [facility] HospitalComment on above:Performed By: #### BMP #### [address] [address] Program Assistant: LIANA PrettyCV (RBC) [Entitic vol]88.6 pWMmomfo30.6-102.9 [facility] HospitalComment on above:Performed By: #### BMP #### [address] [address] Program Assistant: GABRIELA Pretty Automated0.0 per 100 WBCNormal0.0M[facility] HospitalComment on above:Performed By: #### BMP #### [address] [address] Program Assistant: Ranjan Pretty mean volume (Bld) [Entitic vol]9.0 fL Normal8.1-13.5[facility] HospitalComment on above:Performed By: #### BMP #### [address] [address] Program Assistant: Kristina Pretty (Bld) [#/Vol]261 10*3/qTLbmkuq641-234 [facility] HospitalComment on above:Performed By: #### BMP #### [address] [id number] Program Assistant: ARIEL Pretty (Bld) [#/Vol]4.30 10*6/uLNormal3.95-5.11 [facility] HospitalComment on above:Performed By: #### BMP #### [place] [place], [place] [address] Program Assistant: MONA Pretty (Bld) [#/Vol]5.9 10*3/uLNormal3.5-11.3MPomona Valley Hospital Medical CenterComment on above:Performed By: #### BMP #### [address] [address] Program Assistant: KENNA Pretty w/ Auto Diffon 04-32-5975Qywcrsdgbsl distribution width (RBC) [Ratio]13.6 %Wvesug95.5-15.0[facility] Private HospitalComment on above:Performed By: #### [id number], [id number], 6175410437, 23180427, 419237799 #### [facility] (DEFAULT) [address] [place] [address]Kykjescvbt (Bld) [Volume fraction]37.0 %Wbyplg97.7-40.4 [facility] HospitalComment on above:Performed By: #### 8442093, [id number], 3264355227, 72545196, 933346051 #### [facility] (DEFAULT) [address] [place] [address]Ynnlfwqmtm (Bld) [Mass/Vol]12.7 g/fVNavplb51.3-15.9 [facility] HospitalComment on above:Performed By: #### 9449545, [id number], 8662298937, 16700191, 613692575 #### [facility] (DEFAULT) [address] [place] [address]Oid Diff?AutoInvalid Interpretation [facility] Comment on above:Performed By: #### 9043108, [id number], 7161039961, 57912789, 348656727 #### [facility] (DEFAULT) [address] [place] [address]RXJ (RBC) [Entitic mass]29 atXczvfk77-77Njlhoqkd Hospital Comment on above:Performed By: #### 1526437, 1982580810, 6448278487, 30939772, 725104777 #### [facility] (DEFAULT) [address] [place] [address]RAYO (RBC) [Mass/Vol]34 g/hHUhbnls27-95Mlkxazwy Hospital Comment on above:Performed By: #### 7890693, 9640208591, 2382468224, 51569619, 574429698 #### [facility] (DEFAULT) [address] [place] [address]VEE (RBC) [Entitic vol]84 sJUgrgrx71-605Zkoxbywt Hospital Comment on above:Performed By: #### 1333846, 8959950099, 3130114983, 85388129, 706256243 #### [facility] (DEFAULT) [address] [place] [address]Arrsjper846 p52Jsljzj859-318Aiduuqzc HospitalComment on above:Performed By: #### 2029157, 4248055684, 8544413662, 27791616, 816314887 #### [facility] (DEFAULT) [address] [place] [address]Ntvviwii mean volume (Bld) [Entitic vol]7.3 fLNormal 6.3-10.2[facility] HospitalComment on above:Performed By: #### 9810189, 0026668184, 4418898345, 49799978, 706612923 #### [facility] (DEFAULT) [address] [place] [address]CJD8.39 p69Lgdnab2.70-5.30[facility] HospitalComment on above:Performed By: #### 8789640, 6591175088, 9108884633, 50678141, 490885269 #### [facility] (DEFAULT) [address] [place] [address] 95[address]SVE4.8 d43Gqppnc9.5-10.5[facility] HospitalComment on above: Performed By: #### 7778958, 6625791799, 5047850270, 67248694, 609310408 #### [facility] (DEFAULT) [address] [place] [address]NUZ Standardon 62-60-8242vNSX Non AA>60Invalid Interpretation [facility] ColumbusComment on above:Performed By: #### 2140321, 4410965280, 9009220601, 17903147, 723864866 #### [facility] (DEFAULT) [address] [place] [address]hMVV AA>60Invalid Interpretation [facility] Comment on above:Performed By: #### 5217052, [id number], [id number], 30202860, 252550114 #### [facility] (DEFAULT) [address] [place] [address]Pdcijqn [Mass/Vol]3.7 g/dLNormal3.5-5.0[facility] Comment on above:Performed By: #### 5576463, 3623328384, 1047178917, 53031105, 496879908 #### [facility] (DEFAULT) [address] [place] [address]Pwmaekl/Globulin [Mass ratio]1.0 {ratio}Low1.4-2.6[facility] HospitalComment on above:Performed By: #### 6666253, 3036716481, 0436785316, 96995509, 032807715 #### [facility] (DEFAULT) [address] [place] [address] 19[address]Zmg Phos70 IU/ZSmirpy18-26Cszpnikj HospitalComment on above:Performed By: #### 5580622, 7276171362, 4360584176, 71647423, 984841998 #### [facility] (DEFAULT) [address] [place] [address]WBK [Catalytic activity/Vol]75.0 U/LHigh14.0-54.0[facility] HospitalComment on above:Performed By: #### 9066355, 7038035943, 1655640803, 04007987, 438040551 #### [facility] (DEFAULT) [address] [place] [address] 737[address]JTY [Catalytic activity/Vol]27 U/VJfhsud79-81Enclcnhv HospitalComment on above:Performed By: #### [id number], [id number], 3183594276, 44958873, 467754080 #### [facility] (DEFAULT) [address] [place] [address] 58795Ckze Total0.7 mg/dLNormal0.3-1.2[facility] HospitalComment on above:Performed By: #### 6970656, 8718427644, 5375004700, 52862242, 740106619 #### [facility] (DEFAULT) [address] [place] [address] 07067Xpwduxlffq [Mass/Vol]0.94 mg/dLNormal0.60-1.30[facility] HospitalComment on above:Performed By: #### 7881914, [id number], 7379380865, 85616430, 917322786 #### [facility] (DEFAULT) [address] [place] [address] 44638Rvzwcocx (S) [Mass/Vol]3.5 g/dLNormal1.5-4.3[facility] HospitalComment on above:Performed By: #### 6914591, 7861407840, 6430415257, 33541741, 103904925 #### [facility] (DEFAULT) [address] [place] [address] 56851Oaurixgzjz447 mOsm/LInvalid Interpretation CodeNationwide Children'S Hospital HospitalComment on above:Performed By: #### 4640594, 3951259532, 8086327685, 89420341, 823057228 #### [facility] (DEFAULT) [address] [place] [address] 76764Bbwujvf [Mass/Vol]7.2 g/dLNormal6.5-8.1[facility] Hospital Comment on above:Performed By: #### 3181796, 6207967739, 3010988079, 58633599, 663251430 #### [facility] (DEFAULT) [address] [place] [address] 28857Sdqa nitrogen [Mass/Vol]13 mg/dLNormal8-26[facility] HospitalComment on above:Performed By: #### 3242133, 3535137690, 4919206161, 87237076, 190287388 #### [facility] (DEFAULT) [address] [place] [address] 02086Sfcs nitrogen/Creatinine [Mass ratio]13.8 mg/mgNormal 4.6-16.2[facility] HospitalComment on above:Performed By: #### 5719137, 9794220096, 7445649812, 94146051, 522642355 #### [facility] (DEFAULT) [address] [place] [address] 92181Rlsqm gap [Moles/Vol]13.6 mmol/LNormal5.0-19.0[facility] HospitalComment on above:Performed By: #### 2607728, 7334524822, 2699061615, 33914118, 843029183 #### [facility] (DEFAULT) [address] [place] [address] 73784Nopfcio [Mass/Vol]9.4 mg/dLNormal8.9-10.3MKet[facility] Comment on above:Performed By: #### 3670973, 7142378791, 9653962117, 92864791, 418276037 #### [facility] (DEFAULT) [address] [place] [address] 88513Lhcoxkar [Moles/Vol]104 mmol/JWzbtur607-497Fyjaxsrn HospitalComment on above:Performed By: #### 4478051, 2378533508, 9763316377, 16915688, 929040839 #### [facility] (DEFAULT) [address] [place] [address] 19353JC6 [Moles/Vol]25 mmol/KUrahgs74-78Yqqowyyp Hospital Comment on above:Performed By: #### 0721117, 3552969622, 5681073600, 73129045, 451400075 #### [facility] (DEFAULT) [address] [place] [address] 49375Lstpikz [Mass/Vol]93.0 mg/rKJcepvs29.0-118.0[facility] HospitalComment on above:Performed By: #### 0227624, 7858884185, 9555367755, 22323075, 694072117 #### [facility] [address] [place] [address] 06958Lgisjpfdo [Moles/Vol]3.6 mmol/LNormal3.6-5.1[facility] HospitalComment on above:Performed By: #### 9292302, 0708978037, 9703562526, 35153298, 362157715 #### [facility]DEFAULT[facility] [address] [place] [address] 53294Sjeaux [Moles/Vol]139.0 mmol/CPpiuyp944.0-144.0[facility] HospitalComment on above:Performed By: #### 2194347, 8948200943, 8740329803, 18713021, 949392016 #### [facility] [address] [place] [address] 10259XL Abdomen/Pelvis w/o Contraston 92-46-7569XM Abdomen/Pelvis w/o ContrastEXAMINATION: CT Abdomen/Pelvis w/o Contrast [...] Jennifer Gates MD 01/26/25 2:00 pm Technologist: [facility]YLancaster [facility] HospitalED Note-Nursingon 97-24-6914CA Note-NursingPt stated she was seen in [facility] recently and Dr. Plata is requesting records. Note Keeper called [facility] to get records faxed. Stated they would be faxing results over. hio Valley Surgical HospitalExtra Blueon 48-72-9003Hyzv CollectedYesInvalid Interpretation Code [facility] on above:Performed By: #### 8112182, [id number], 0441375582, 81562587, 488262715 #### [facility] (DEFAULT) [address] [place], [place] [address]Ggrnapusxqy Urinalysison 25-06-1367Wpvhfsxp LM Ql (Urine sed)NoneNoneBon [facility]Audax MedicalCasts LM.LPF (Urine sed) [#/Area]2 TO 5 HYALINE Reference range defined for non-centrifuged specimen.Bon Qwentydelaware hospital for the chronically ill FirethornEpithelial cells LM.HPF (Urine sed) [#/Area]2 TO 5Bon [facility] Firethorn RBC LM.HPF (Urine sed) [#/Area]TOO NUMEROUS TO COUNTBon [facility] Comment on above:Reference range defined for non-centrifuged specimen.WBC LM.HPF (Urine sed) [#/Area]20 TO 50[facility] Test Serum 1on 73-65-0005Coeo Serum Internal ControlOKOhio Valley Surgical HospitalComment on above:Performed By: #### 7527929, 0723523022, 6007320279, 87137494, 761609676 #### [facility] (DEFAULT) [address] [place] [address] 94032Ibeowwqoa Test Serum QualNegativeOhio Valley Surgical Hospital Comment on above:Performed By: #### 4304011, 7642005720, 7501517853, 03973837, 107317225 #### [facility] (DEFAULT) [address] [place] [address] 61767Rgntj Analysison 48-69-6440Bqaacxe descriptionSee German HospitalComment on above:Result Comment: (NOTE) Specimen consists of one rondon sample. The total weight is less than 2 mg.Performed By: #### ASTONE #### [facility] [address] [place] [address] Program Assistant: Rupesh DriverOlympic Memorial Hospitalkelly Bellevue HospitalComment on above:Result Comment: (NOTE) Sample composed primarily [...] composition determined by FTIR analysis. Performed By: [facility] [address] [place] [address] Spray Operator: Jorge Melendrez MD, PhD CLIA Number: [id number] By: #### ASTONE #### [facility] [address] [place], [place] [address] Program Assistant: Travis Driver [facility]vue HospitalComment on above:Result Comment: (NOTE) Sample mass < 2 mg. Small sample size prevents accurate weight determination.Performed By: #### ARCHANA #### [facility] [address] [place] [address] Program Assistant: Mane Tolbert MDTransfer Noteon 74-00-0327Ncyyhqsr NotePatient requires transfer to [facility] for a diagnosis of hydronephrosis. 1527- Kylie from [employer], Tamiko kim, hospitalist speaks to Dr. Plata, accepts, top gun is open. 1539- Called [facility], sandblast or shotblast equipment tender Austin gave 20 minute ETA. 1547- [facility] arrives 1550- [facility] calls, bed assignment given, room 321 bed 2, report number [id number] 1610- [facility] departs [Electronically Signed on: 01/26/2025 16:28 EDT] Beth Rodriguez RN [Verified on: 01/26/2025 16:28 EDT] Beth Rodriguez RN 1630- Dr. Plata signs physician note, this note was faxed to [facility] at fax number [phone]. [Electronically Signed on: 01/26/2025 16:31 EDT] Beth Rodriguez RNNoSumma HealthUA Sfsep0jm 07-73-1020VR Bacteria TraceOhio Valley Surgical HospitalComment on above:Order Comment: Urinalysis Microscopic order added on by Discern Expert Rules system.Performed By: #### 5974255, 2672104380, 7782388282, 19041732, 086982821 #### [facility] (DEFAULT) [address] [place] [address] Comment.See CommentInvalid Interpretation CodeKeenan Private HospitalComment on above:Order Comment: Urinalysis Microscopic order added on by mBlox Expert Rules system.Result Comment: 4+ Sulfa Crystals presentPerformed By: #### 8054555, 6621361846, 0150655116, 09218728, 076625120 #### [facility] (DEFAULT) [address] [place], [place] [address]UA RBCGross BloodOhio Valley Surgical HospitalComment on above: Order Comment: Urinalysis Microscopic order added on by mBlox Expert Rules system.Performed By: #### 3351104, 6800176650, 3184701560, 61031344, 143096963 #### [facility] (DEFAULT) [address] [place] [address] Squam EpiModerateOhio Valley Surgical HospitalComment on above:Order Comment: Urinalysis Microscopic order added on by mBlox Expert Rules system.Performed By: #### 8713070, 2130725074, 0364992337, 25462744, 674207530 #### [facility] (DEFAULT) [address] [place], [place] [address]UA WBC3-5NoSumma HealthComment on above:Order Comment: Urinalysis Microscopic order added on by mBlox Expert Rules system. Performed By: #### 1268316, 7816659141, 3059663742, 77407326, 698658708 #### [facility] (DEFAULT) [address] [place], [place] [address]UA w Culture if Ind Standardon 01-21-6600Wgkzmirfae UA [facility] Surgical HospitalComment on above:Performed By: #### 2036015, 7577524293, 2610182657, 23745494, 147962226 #### [facility] (DEFAULT) [address] [place], [place] [address]Color (U)RedOhio Valley Surgical HospitalComment on above:Result Comment: Test cannot be satisfactorily determined due to intensely colored urine. Parameterswhich will be affected are: GLU, BRAIN, URO, KET, BLO, PRO, NIT, LISSA, SG, AND pH.Performed By: #### 5038110, 9241253916, 5802646940, 00175740, 914933962 #### [facility] (DEFAULT) [address] [place] [address] 17560Howbibu?YesNormalNationwide [facility]S Hospital HospitalComment on above:Result Comment: Result created by rule GL_MAGR_ADD_UA_CULT Result created by rule GL_MAGR_ADD_UA_CULT1Performed By: #### 2437005, 1171875030, 5993860433, 75571886, 856684174 #### [facility] (DEFAULT) [address] [place] [address] 45008Itxczjw (U) [Mass/Vol]NegativeWood County Hospital Hospital Comment on above:Performed By: #### 6278603, 5186335254, 8644604015, 81155868, 344725888 #### [facility] (DEFAULT) [address] [place] [address] 58408Cbsgyht Ql (U)NegativeNoKeenan Private Hospital HospitalComment on above:Performed By: #### 4270974, 3535355231, 4779807290, 22483562, 441103337 #### [facility] (DEFAULT) [address] [place] [address] 75252Ppejv?IndicatedInvalid Interpretation CodeNationwide Children'S Hospital HospitalComment on above:Result Comment: Result created by rule GL_MAGR_ADD_UA_MICROPerformed By: #### 2113282, 3932458918, 7243377392, 53414660, 179876687 #### [facility] (DEFAULT) [address] [place] [address] 67307VF BilirubinSMALLAbnormSouthview Medical Center HospitalComment on above:Performed By: #### 5132979, 4193016751, 2496857901, 64752142, 621727744 #### [facility] (DEFAULT) [address] [place] [address] 25761BW BloodLARGEAbnormalNEGATIVENationwide Children'S Hospital HospitalComment on above:Performed By: #### 4475775, 8496076835, 0859667288, 58138904, 593945017 #### [facility] (DEFAULT) [address] [place] [address] 93515HG ClarityCLOUDYAbnormalCLEARNationwide Children'S Hospital HospitalComment on above:Performed By: #### 7918684, 8331173735, 0464238847, 01778791, 920548733 #### [facility] (DEFAULT) [address] [place] [address] 49443DE Leuk EstMODERATEAbnormalNEGPeoples Hospital Hospital Comment on above:Performed By: #### 2565170, 8283873393, 2626248633, 17224633, 429074036 #### [facility] (DEFAULT) [address] [place] [address] 25488JN NitriteNegativeNormalNEGATIVENationwide Children'S Hospital HospitalComment on above:Performed By: #### 1228296, 7352777982, 1720158848, 89216838, 028287647 #### [facility] (DEFAULT) [address] [place] [address] 30920HC pH7.0Civkel1-1Cqzondij HospitalComment on above: Performed By: #### 1223758, 5808653217, 3398354582, 78301685, 692842372 #### [facility] (DEFAULT) [address] [place] [address] 84205SP Zjowquf497CgrrdlivLKBQZPMKLefzclyo HospitalComment on above:Performed By: #### 1501645, 8120740179, 3001941476, 63836520, 576778409 #### [facility] (DEFAULT) [address] [place] [address] 84130WJ Spec Grav1.978Wvxxye6.001-1.035[facility] HospitalComment on above:Performed By: #### 5816875, 4812807314, 0546580207, 58785992, 395616433 #### [facility] (DEFAULT) [address] [place] [address] 60990KU Urobilinogen0.2 mg/dLNormal0.2-1.0[facility] Comment on above:Performed By: #### 8563426, 2266040729, 1195159991, 39056658, 021820030 #### [facility] (DEFAULT) [address] [place] [address] 03139Fiuhk SourceClean Veterans Health AdministrationComment on above:Performed By: #### 9486349, 7326514334, 6160063419, 53626577, 044065390 #### [facility] (DEFAULT) [address] [place] [address] 84353EX w/Reflex Cultureon 68-25-8762Wvoqolsaq, SemiQt,Ur NegativeNormalNEGMansfield HospitalComment on above:Performed By: #### RIZWANA RODRIGUEZ #### [facility] [address] [place] [address] Program Assistant: Joyce Pretty UrineLARGEAbnormalNEGMansfield HospitalComment on above:Performed By: #### JENNIFER UMFERCHOO #### [facility] [address] [place] [address] Program Assistant: NABOR Prettylarity (U)CloudyAbnormalCLEARMercy Brea Community HospitalComment on above:Performed By: #### UATato UMICAO #### [facility] [address] [place] [address] Program Assistant: NABOR Prettyolor (U)OrangeAbnormalYELMerWest Hills Regional Medical CenterComment on above:Result Comment: INTERPRET WITH CAUTION DUE TO INTENSE COLOR OF URINE.Performed By: #### UAX UMICAO #### [facility] [address] [place] [address] Program Assistant: Alejandro Salazar MDGlucose Ql (U)NegativeNormalNEGMansfield HospitalComment on above:Performed By: #### UAX, UMICAO #### [facility] [address] [place] [address] Program Assistant: Alejandro Salazar MDKetones Ql (U)NegativeNormalNEGMansfield HospitalComment on above:Performed By: #### UAX, UMICAO #### [facility] [address] [place] [address] Program Assistant: Alejandro Salazar MDLeukocyte esterase Test strip Ql (U)MODERATE AbnormalNEGMansfield HospitalComment on above:Performed By: #### UATato, UMICAO #### [facility] [address] [place] [address] Program Assistant: Radha Prettytrite,UrNegativeNormalNEGMansfield HospitalComment on above:Performed By: #### JENNIFER UMSRIKANTH #### [facility] [address] [place] [address] Program Assistant: IBIS Pretty,Ur6.8Tbeadq8.0-8.0[facility] HospitalComment on above:Performed By: #### JENNIFER, UMICAO #### [facility] [address] [place] [address] Program Assistant: Ash Pretty Ql (U)2+ mg/dLAbnormalNEGMansfield HospitalComment on above:Performed By: #### UAX, UMICAO #### [facility] [address] [place] [address] Program Assistant: Rosaura Pretty. [place],Ur1.096Yxpikv3.005-1.030M[facility]field HospitalComment on above:Performed By: #### UATato, UMICAO #### [facility] [address] [place] [address]06 Program Assistant: Alejandro Madoff, MDUrobilinogen,UrNormalNormal0.0-1.0M[facility]field HospitalComment on above:Performed By: #### RIZWANA RODRIGUEZ #### [facility] [address] [place] [address] Program Assistant: Alejandro Salazar MDUrinalysis with Reflex to Cultureon 01-26-2025 Bilirubin Ql (U)NegativeNEGATIVEBon Secours [facility] HealthClarity (U)Cloudy AbnormalClearBon [facility]ours [facility]y HealthColor (U)OrangeAbnormalYellowBon SecFranciscan Healthy HealthComment on above:INTERPRET WITH CAUTION DUE TO INTENSE COLOR OF URINE.Glucose Test strip (U) [Mass/Vol]NegativeNEGATIVE mg/dLBon Secours [facility]y HealthHemoglobin Auto test strip Ql (U)LARGEAbnormalNEGATIVEBon Secours [facility]y HealthInterpretation and review of laboratory resultsAbnormalBon [facility]ours [facility]y HealthKetones (U) [Mass/Vol]NegativeNEGATIVE mg/dLBon SecHuey P. [facility] Health Leukocyte esterase Test strip Ql (U)MODERATEAbnormalNEGATIVEBon Secours [facility]y HealthNitrite Ql (U)NegativeNEGATIVEBon Secours [facility]y HealthpH (U)6.5 [pH]5.0 - 8.0[facility] HealthProtein (U) [Mass/Vol]2+AbnormalNEGATIVE mg/dLBon Secours [facility] HealthSpecific gravity (U) [Rel density]1.0161.005 - 1.030Bon SecFranciscan Healthy HealthUrobilinogen Qn (U)Normal0.0 - 1.0 EU/dLBon Secours [facility]y HealthBon SecFranciscan Healthy HealthUrinalysis,Microon 60-79-3167DtxxdlpfHyuhByvydi NONEMansfield HospitalComment on above:Performed By: #### RIZWANA RODRIGUEZ #### [facility] [address] [place] [address] Program Assistant: NABOR Prettyasts2 TO 5 HYALINENormal0-8Mansfield HospitalComment on above:Result Comment: Reference range defined for non- centrifuged specimen.Performed By: #### UAKYLE GodwinICAPatrizia #### [facility] [address] [place] [address] Program Assistant: Alejandro Salazar MDEpithelial cells LM Ql (Urine sed)2 TO 5Normal 0-5M[facility]field HospitalComment on above:Performed By: #### UATato UMICAO #### [facility] [address] [place] [address] Program Assistant: Karishma Pretty RBC'sTOO NUMEROUS TO COUNTNormal0-4M[facility] HospitalComment on above:Result Comment: Reference range defined for non-centrifuged specimen.Performed By: #### RIZWANA RODRIGUEZ #### [facility] [address] [place] [address] Program Assistant: Karishma Pretty WBC's20 TO 18Mcsykd0-2GpatuMansfield HospitalComment on above:Performed By: #### RIZWANA RODRIGUEZ #### [facility] [address] [place] [address] Program Assistant: Maite Pretty,Urineon 06-15-1165Aozn,UrineSpecimen Description .BLADDER URINE FROM CYSTOSCOPY Special Requests Site: Urine Culture NO GROWTH Report Status FINAL 01/23/2025NoCleveland Clinic Fairview HospitalComment on above:Performed By: #### URC #### [facility] [address] [place] [address] Program Assistant: Edward Pretty Metabolic Profon 41-10-5001Ttoad gap [Moles/Vol]12 mmol/LNormal9-16M[facility]field HospitalComment on above: Performed By: #### BMP #### [facility] [address] [place] [address] Program Assistant: NABOR Prettyalcium [Mass/Vol]8.4 mg/dLLow8.6-10.4[facility] HospitalComment on above:Performed By: #### BMP #### [facility] [address] [place] [address] Program Assistant: NABOR Prettyhloride [Moles/Vol]107 mmol/DQuzzhz74-427JcrhmMansfield HospitalComment on above:Performed By: #### BMP #### [facility] [address] [place] [address] Program Assistant: Alejandro Salazar MDCO2 [Moles/Vol]21 mmol/TAbhecl68-50KdmxzMansfield HospitalComment on above:Performed By: #### BMP #### [facility] [address] [place] [address] Program Assistant: NABOR Prettyreatinine [Mass/Vol]0.7 mg/dLNormal0.6-0.9M[facility]field HospitalComment on above:Performed By: #### BMP #### [facility] [address] [place] [address] Program Assistant: Alejandro Salazar MDGFR/1.73 sq M.predicted among non-blacks MDRD (S/P/Bld) [Vol rate/Area]mL/min/{1.73_m2}Normal>60M[facility]field HospitalComment on above:Result Comment: These results are not [...] tubular secretion.Performed By: #### BMP #### [facility] [address] [place] [address] Program Assistant: Alejandro Salazar MDGlucose [Mass/Vol]94 mg/oPPfvztq14-45EegsqPomona Valley Hospital Medical CenterComment on above:Performed By: #### BMP #### [facility] [address] [place] [address] Program Assistant: IBIS Prettyotassium [Moles/Vol]4.2 mmol/LNormal3.7-5.3 [facility] HospitalComment on above:Result Comment: Specimen hemolysis has exceeded the interference as defined by Denise. Value may be falsely increased. Suggest recollection if clinically indicated.Performed By: #### BMP #### [facility] [address] [place] [address] Program Assistant: LELE Prettyodium [Moles/Vol]140 mmol/PByinqw758-081LmbbmMansfield HospitalComment on above:Performed By: #### BMP #### [facility] [address] [place] [address] Program Assistant: Alejandro Salazar MDUrea nitrogen [Mass/Vol]6 mg/dLNormal6-20[facility] HospitalComment on above:Performed By: #### BMP #### [facility] [address] [place] [address] Program Assistant: Je Prettylexington [facility] metabolic panelon 82-53-8329Pdqwl gap [Moles/Vol]12 mmol/L9 - 16 mmol/LBon Secours Mercy HealthCalcium [Mass/Vol]8.4 mg/dLLow8.6 - 10.4 mg/dLBon Secours Mer[facility] HealthChloride [Moles/Vol]107 mmol/L98 - 107 mmol/LBon Secours [facility] HealthCO2 [Moles/Vol]21 mmol/L20 - 31 mmol/LBon Secours [facility] HealthCreatinine [Mass/Vol]0.7 mg/dL0.6 - 0.9 mg/dLBon Secours TaskEasyy HealthEst, Glom Filt Rate- PINFBon [facility] HospitalComment on above: These results are [...] secretion. Glucose [Mass/Vol]94 mg/dL74 - 99 mg/dLBon [facility] HospitalInterpretation and review of laboratory resultsAbnormalSouthside Regional Medical CenterPotassium [Moles/Vol]4.2 mmol/L3.7 - 5.3 mmol/LBon [facility] HospitalComment on above: Specimen hemolysis has exceeded the interference as defined by Denise. Value may be falsely increased. Suggest recollection if clinically indicated. Sodium [Moles/Vol]140 mmol/L136 - 145 mmol/LBon [facility] HospitalUrea nitrogen [Mass/Vol]6 mg/dL6 - 20 mg/dLBon [facility] HospitalCBC with Auto Differentialon 57-74-5615Gqcfnohdk (Bld) [#/Vol]0.03 10*3/uL Bon SecLicking Memorial HospitalBasophils/100 WBC (Bld)1 %0 - 2 %Bon SecLicking Memorial HospitalEosinophils (Bld) [#/Vol][facility] HospitalEosinophils/100 WBC (Bld) 1 %1 - 4 %[facility] SecLicking Memorial HospitalErythrocyte distribution width (RBC) [Ratio] 12.5 %11.8 - 14.4 %Bon SecLicking Memorial HospitalHematocrit (Bld) [Volume fraction] 36.7 %36.3 - 47.1 %Bon SecLicking Memorial HospitalHemoglobin (Bld) [Mass/Vol]11.8 g/dL Low11.9 - 15.1 g/dLBon SecLicking Memorial HospitalImmature granulocytes (Bld) [#/Vol] [facility] HospitalImmature granulocytes/100 WBC (Bld)0 %0Bon [facility] HospitalInterpretation and review of laboratory resultsAbnormalBon SecLicking Memorial HospitalLymphocytes/100 WBC (Bld)34 %24 - 43 %Bon [facility] Lymphocytes/100 WBC (Bld)1.19 %Bon SecLicking Memorial HospitalMCH (RBC) [Entitic mass] 27.6 pg25.2 - 33.5 pgBon [facility] HospitalHC (RBC) [Mass/Vol]32.2 g/dL28.4 - 34.8 g/dLBon [facility] Community HospitalV (RBC) [Entitic vol]85.7 fL82.6 - 102.9 fL [facility] Medical CenterMonocytes/100 WBC (Bld)9 %3 - 12 %Bon [facility] HospitalMonocytes/100 WBC (Bld)0.3 %Bon [facility] HospitalNeutrophils/100 WBC (Bld)55 %36 - 65 %Bon [facility] HospitalNucleated RBC/100 WBC (Bld) [Ratio]0 % 0.0 per 100 WBCBon [facility] HospitalPlatelet mean volume (Bld) [Entitic vol] 9.1 fL8.1 - 13.5 fLBon [facility] HospitalPlatelets (Bld) [#/Vol]217 10*3/uLBon [facility] HospitalRBC (Bld) [#/Vol]4.28 10*6/uL3.95 - 5.11 m/uLBon [facility] HospitalSegmented neutrophils/100 WBC (Bld)1.96 %Bon [facility] HospitalWBC other (Bld) [#/Vol]3.5Bon [facility] HospitalCBC with Diffon 45-68-2109Rec. Basophil0.03 k/uLNormal0.00-0.20[facility] HospitalComment on above:Performed By: #### CDP #### [facility] [address] [place] [address] Program Assistant: J Carlos Pretty. Eosinophil<0.61Uwpmqd7.00-0.44M[facility]field HospitalComment on above:Performed By: #### CDP #### [facility] [address] [place], [place] [address] Program Assistant: J Carlos Pretty.Imm.Granulocyte<0.42Roicnl4.00-0.30M[facility]field HospitalComment on above:Performed By: #### CDP #### [address] [address] Program Assistant: J Carlos Pretty.Neutrophil (Seg)1.96 k/uLNormal1.50-8.10 [facility] HospitalComment on above:Performed By: #### CDP #### [address] [address] Program Assistant: Alejandro Salazar MDBasophils/100 WBC (Bld)1 %Normal0-2MPomona Valley Hospital Medical CenterComment on above:Performed By: #### CDP #### [address] [address] Program Assistant: Alejandro Salazar MDEosinophils/100 WBC (Bld)1 %Normal1-4M[facility]field HospitalComment on above:Performed By: #### CDP #### [address] [address] Program Assistant: Alejandro Salazar MDErythrocyte distribution width (RBC) [Ratio]12.5 %Axyool46.8-14.4Mansfield HospitalComment on above:Performed By: #### CDP #### [address] [address] Program Assistant: Alejandro Salazar MDHematocrit (Bld) [Volume fraction]36.7 %Normal 36.3-47.1MPomona Valley Hospital Medical CenterComment on above:Performed By: #### CDP #### [address] [address] Program Assistant: Alejandro Salazar MDHemoglobin (Bld) [Mass/Vol]11.8 g/dLLow11.9-15.1 [facility] HospitalComment on above:Performed By: #### CDP #### [address] [address] Program Assistant: Tri Prettyture granulocytes/100 WBC (Bld)0 %Normal0 [facility]field HospitalComment on above:Performed By: #### CDP #### [address] [address] Program Assistant: Yanick Prettymphocytes (Bld) [#/Vol]1.19 10*3/uLNormal 1.10-3.70Mansfield HospitalComment on above:Performed By: #### CDP #### [address] [address] Program Assistant: Yanick Prettymphocytes/100 WBC (Bld)34 %Oldwke79-74HzdzlMansfield HospitalComment on above:Performed By: #### CDP #### [address] [address] Program Assistant: LIANA PrettyCH (RBC) [Entitic mass]27.6 wfZzbsqe34.2-33.5 [facility] HospitalComment on above:Performed By: #### CDP #### [address] [address] Program Assistant: LIANA PrettyCHC (RBC) [Mass/Vol]32.2 g/vXFfhzru53.4-34.8 [facility] HospitalComment on above:Performed By: #### CDP #### [address] [address] Program Assistant: LIANA PrettyCV (RBC) [Entitic vol]85.7 rEFxmjsw04.6-102.9 [facility] HospitalComment on above:Performed By: #### CDP #### [address] [address] Program Assistant: LIANA Prettyonocytes (Bld) [#/Vol]0.30 10*3/uLNormal 0.10-1.20Mansfield HospitalComment on above:Performed By: #### CDP #### [address] [address] Program Assistant: Alejandro Salazar MDMonocytes/100 WBC (Bld)9 %Normal3-12M[facility]field HospitalComment on above:Performed By: #### CDP #### [address] [address] Program Assistant: Alejandro Salazar MDNeutrophil (Seg)55 %Xjbody27-22TzcpfMansfield HospitalComment on above:Performed By: #### CDP #### [address] [address] Program Assistant: Alejandro Salazar MDNRBC Automated0.0 per 100 WBCNormal0.0Mansfield HospitalComment on above:Performed By: #### CDP #### [address] [address] Program Assistant: Maribell Prettyteemma mean volume (Bld) [Entitic vol]9.1 fL Normal8.1-13.5Mansfield HospitalComment on above:Performed By: #### CDP #### [address] [address] Program Assistant: IBIS Prettylatelets (Bld) [#/Vol]217 10*3/eDLbvxur092-959 [facility] HospitalComment on above:Performed By: #### CDP #### [address] [address] Program Assistant: Alejandro Salazar MDRBC (Bld) [#/Vol]4.28 10*6/uLNormal3.95-5.11 [facility] HospitalComment on above:Performed By: #### CDP #### [address] [address] [place], [place] [id number] Program Assistant: FIFI Pretty (d) [#/Vol]3.5 10*3/uLNormal3.5-11.3Mer[facility] Brea Community HospitalComment on above:Performed By: #### CDP #### [facility] [address] [place] [id number] Program Assistant: Alejandro Salazar MDFLUORO FOR SURGICAL PROCEDURESon 01-22-2025 FLUORO FOR SURGICAL PROCEDURESRadiology exam is complete. No Radiologist dictation. Please follow up with ordering provider. Final resultNormalMercy Brea Community HospitalGuidance-- during surgeryon 82-79-3315Njmmsgzdg exam is complete. No Radiologist dictation. Please follow up with ordering provider. MHPN RIS CONSOLIDATEDLactic Acidon 82-42-1827Xfrewx Acid, Whole Blood1 mmol/L0.7 - 2.1 mmol/LBon Lead-Deadwood Regional HospitalLactic Acid,Whole Bl1.0 mmol/LNormal0.7-2.1Mer[facility] Brea Community HospitalComment on above: Performed By: #### LACTIC #### [facility] [address] [place] [address] Program Assistant: IBIS PrettyREVIOUS SPECIMENon 65-71-0816W[facility] Cultureon 72-89-9287Fkegvvge identified Cx Nom (U)ORGANISM: Escherichia coli (O:ESCCOL) [place] Count >100,000 Aerobic ANASTASIA Charge (NMIC56) SUSCEPTIBILITY [...] RESISTANT TO ALL B-LACTAM DRUGS. PERFORMED BY: [place] [address] PATHOLOGIST BRUSH MAKER DAVID TIERNEY M.D.[facility] Physician GroupComment on above: Performed By: #### CUU #### [place] [address] USAFL VOIDING URETHROCYSTOGRAM S AND Ion 65-79-3901BA VOIDING URETHROCYSTOGRAM S AND IEXAMINATION: VOIDING CYSTO URETHROGRAM 01/17/2025 7:55 am COMPARISON: None. HISTORY: ORDERING SYSTEM PROVIDED HISTORY: VUR (vesicoureteric reflux) TECHNOLOGIST PROVIDED HISTORY: Is the patient ?->No Reason for Exam: frequent UTI, kidney stones FLUOROSCOPY DOSE AND TYPE: Radiation Exposure Index: DAP 184.70xBuxs0, FINDINGS: 600 mL of Cystografin was instilled [...] Signed by: Casey Sharma MD 01/17/25 Final resultNoCleveland Clinic Fairview HospitalFL VOIDING URETHROCYSTOGRAM S&Ion . No evidence for vesicoureteric reflux. 2. Small postvoid residual. [facility] CONSOLIDATEDEXAMINATION: VOIDING CYSTO URETHROGRAM 01/17/2025 7:55 am COMPARISON: None. HISTORY: ORDERING SYSTEM PROVIDED HISTORY: VUR (vesicoureteric reflux) TECHNOLOGIST PROVIDED HISTORY: Is the patient ?->No Reason for Exam: frequent UTI, kidney stones FLUOROSCOPY DOSE AND TYPE: Radiation Exposure Index: DAP 184.61zCzxk9, FINDINGS: 600 mL of Cystografin was instilled [...] the urethra. There is small postvoid residual. [facility] Casey Moore MD - 01/17/2025 EXAMINATION: VOIDING CYSTO URETHROGRAM 01/17/2025 7:55 am COMPARISON: None. HISTORY: ORDERING SYSTEM PROVIDED HISTORY: VUR (vesicoureteric reflux) TECHNOLOGIST PROVIDED HISTORY: Is the patient ?->No Reason for Exam: frequent UTI, kidney stones FLUOROSCOPY DOSE AND TYPE: Radiation Exposure Index: DAP 184.59uWxsl5, FINDINGS: 600 mL of Cystografin was instilled [...] reflux. 2. Small postvoid residual. [facility] Hospitaliology Study observation (narrative)[facility] HealthFL VOIDING URETHROCYSTOGRAM S&IOrdered By: Casey Sharma on 39-52-5991Xvg MiNOWireless Work Phone: [place] KIDNEY W FLOW AND FUNCTION W PHARMACOLOGICAL INTERVENTIONon 41-25-8819N[place] KIDNEY W FLOW AND FUNCTION W PHARMACOLOGICAL [...] by: Glen Perez MD 01/16/25 Final resultNormalMercy King'S Daughters Medical CenterUrine Cultureon 08-12-7243Tffvrivx identified Cx Nom (U)30,000 colonies/ml mixed bacterial skin contaminants 2 Days PERFORMED BY: [place] [address] PATHOLOGIST BRUSH MAKER DAVID TIERNEY M.D.NormalThe Lifec[facility] Hospitals Of North Carolina Physician GroupComment on above: Performed By: #### CUU #### [place] [address] USAUrine cultureOrdered By: Domingo Snyder on 90-87-4770Cyduoxwq identified Cx Nom (U)Urine cultureMercy Health Willard HospitalCholesterol [Mass/volume] in Serum or PlasmaOrdered By: Arnulfo Aviles on 04-09-2024 Cholesterol [Mass/Vol]150 mg/tR368-330ZiljhoyctMercy Health Willard HospitalComment on above:Chol less than 200 mg/dl low riskChol 201-239 mg/dl borderline riskChol 240 mg/dl and greater high riskCholesterol in LDL Calc [Mass/Vol]Ordered By: Arnulfo Aviles on 88-35-0768Bytwvhmpbhr in LDL [Mass/Vol]90 mg/dL0-100 [facility] Willard HospitalComment on above:LDL ATP III CLASSIFICATIONLDL less than 100 mg/dL OptimalLDL 100-129 mg/dL Near or above ejtdrofJCF486-015 mg/dL Borderline highLDL 160-189 mg/dL HighLDL greater than 189 mg/dL Very high Cholesterol in VLDL Calc [Mass/Vol]Ordered By: Arnulfo Aviles on 81-92-0687Ikppkgxebht in VLDL [Mass/Vol]16 mg/dLAkron Children's Hospitalerum or plasma high density lipoprotein (HDL) cholesterol measurement Ordered By: Arnulfo Aviles on 30-28-1640Tbpthdyysbj in HDL [Mass/Vol]44 mg/nU07-73YhctuqzwpMercy Health Willard HospitalComment on above:HDL CHOL ATP-III CLASSIFICATION Cardiovascular RiskHDL > or equal to 60 mg/dL LOWHDL < 40 mg/dL HIGHSerum or plasma total cholesterol/high density lipoprotein (HDL) cholesterol mass ratOrdered By: Arnulfo Aviles on 04-09-2024 Cholesterol.total/Cholesterol in HDL [Mass ratio]3.4 {ratio}<5.0Mercy Health Willard HospitalThyrotropin [Units/volume] in Serum or PlasmaOrdered By: Arnulfo Aviles on 95-07-8547UXG Qn2.01 m[IU]/L0.45-5.33Mer[facility] Willard HospitalTriglyceride [Mass/volume] in Serum or PlasmaOrdered By: Arnulfo Aviles on 13-39-0123Mutvcnmvpaeh [Mass/Vol]82 mg/dL0-149Mer[facility] Willard HospitalComment on above:TRIG ATP III CLASSIFICATIONTRIG less than 150 mg/dL NormalTRIG 150-199 mg/dL Borderline highTRIG 200-500 mg/dL High TRIG greater than 500 mg/dL Very highStandard traceable to the Center for Disease Conrtrol and Prevention (CDC) test method.Vitamin D+Metabolites [Mass/volume] in Serum or PlasmaOrdered By: Arnulfo Aviles on 04-09-2024 Vitamin D+Metabolites [Mass/Vol]26.2 ng/sN90-859BogdmjtvhMercy Health Willard HospitalComment on above:VITAMIN D STATUS 25(OH)VITAMIN D RANGE (ng/mL) Deficient <20 Insufficient 20 to <49Aixvnsafjm41 to 100Reference: José Miguel MF,Jennifer NC, Mady MARTI, et al. Evaluation,treatment, and prevention of vitamin D deficiency; an Endocrine Society clinical practice guideline. JCEM. 2010; 96 (7):1911-30.MM POST BIOPSY LTon 29-24-[address]70[place] [id number] Mammography Report Signed Patient: DIANA BARRIGA MR#: [id number] : 1990 Acct:[id number] Age/Sex: 33 / F ADM Date: 12/29/23 Loc: US Attending Dr: Jefferson Gibbs D.O. Ordering Physician: Jefferson Gibbs D.O. Results: Date of Service: 12/29/23 Follow Up: Procedure(s): MM post biopsy LT Accession Number(s): [id number] cc: Jefferson Gibbs D.O.; Domingo Snyder M.D. Patient Name: DIANA BARRIGA MR#: [id number] : 1990 Exam Date: 12/29/2023 Ordering Doctor: [...] M.D. Signed By: 12/29/2357 DD/ 6 TD/TT: Online Program Coordinator:JOCELYNHRadiologJose D gupta MD - 12/29/2023 [place] [address] Mammography Report Signed Patient: DIANA BARRIGA MR#: [id number] : 1990 Acct:[id number] Age/Sex: 33 / F ADM Date: 12/29/23 Loc: US Attending Dr: Jefferson Gibbs D.O. Ordering Physician: Jefferson Gibbs D.O. Results: Date of Service: 12/29/23 Follow Up: Procedure(s): MM post biopsy LT Accession Number(s): [id number] cc: Jefferson Gibbs D.O.; Domingo Snyder M.D. Patient Name: DIANA BARRIGA MR#: [id number] : 1990 Exam Date: 12/29/2023 Ordering Doctor: [...] M.D. Signed By: 12/29/23 0857 DD/ TD/TT: Online Program Coordinator: [place] HealthcareRadiology Study observation (narrative)NOMS HealthcareMM POST BIOPSY LTOrdered By: Radiologist Radiology on 89-61-7890O[facility] Work Phone: US GUIDED BREAST BIOPSY LTon 86-06-6331F[place] [address] Ultrasound Report Signed Patient: DIANA BARRIGA MR#: [id number] : 1990 Acct:[id number] Age/Sex: 33 / F ADM Date: 12/29/23 Loc: US Attending Dr: Jefferson Gibbs D.O. Ordering Physician: Jefferson Gibbs D.O. Date of Service: 12/29/23 Procedure(s): US breast vac bx w/ clip LT Accession Number(s): [id number] cc: Jefferson Gibbs D.O.; Domingo Snyder M.D. [address] [id number] Patient Name: DIANA BARRIGA MRN: [facility]:[id number] date: 1990 Sex: F Assigned Patient Location: US Current Patient Location: Accession/Order Number: [id number] Exam Date: 12/29/2023 07:20 Report Date: 12/29/2023 [...] M.D. Signed By: 12/29/23826 DD/ 3 TD/TT: Online Program Coordinator:TBHRadiology, Radiologist, - 12/29/2023 [address] [place] [id number] Ultrasound Report Signed Patient: DIANA BARRIGA MR#: [id number] : 1990 Acct:[id number] Age/Sex: 33 / F ADM Date: 12/29/23 Loc: US Attending Dr: Jefferson Gibbs D.O. Ordering Physician: Jefferson Gibbs D.O. Date of Service: 12/29/23 Procedure(s): US breast vac bx w/ clip LT Accession Number(s): [id number] cc: Jefferson Gibbs D.O.; Domingo Snyder M.D. [address] [place] [address] Patient Name: DIANA BARRIGA MRN: [facility]:[id number] date: 1990 Sex: F Assigned Patient Location: US Current Patient Location: US Accession/Order Number: [id number] Exam Date: 12/29/2023 07:20 Report Date: 12/29/2023 [...] M.D. Signed By: 12/29/23826 DD/ 3 TD/TT: Online Program Coordinator: [place] HealthcareRadiology Study observation (narrative)VIRGINIA HealthcareUS GUIDED BREAST BIOPSY LTOrdered By: Radiologist Radiology on 00-55-4983DE[facility] Work Phone: mm TOMOSYNTHESIS DIAGNOSTIC BIon 24-77-3827[place], [place] [address] Mammography Report Signed Patient: DIANA BARRIGA MR#: [id number] : 1990 Acct:[id number] Age/Sex: 33 / F ADM Date: 12/23/23 Loc: MAMMO Attending Dr: Jefferson Gibbs D.O. Ordering Physician: Tamiko Chacon Results: Date of Service: 12/23/23 Follow Up: Procedure(s): MM tomosynthesis diagnostic BI Accession Number(s): [id number] cc: Tamiko Chacon; Domingo Snyder M.D. Patient Name: DIANA BARRIGA MR#: [id number] : 1990 Exam Date: 12/23/2023 Ordering Doctor: [...] Treatments None Family Cancers None LOCATION: [facility] BREAST COMPOSITION: Extremely dense, which lowers [...] Signed By: 12/23/23 1348 DD/ 1347 TD/TT: Online Program Coordinator:TBHRadiology, Radiologist, - 12/23/2023 [place] [address] Mammography Report Signed Patient: DIANA BARRIGA MR#: [id number] : 1990 Acct:[id number] Age/Sex: 33 / F ADM Date: 12/23/23 Loc: MAMMO Attending Dr: Jefferson Gibbs D.O. Ordering Physician: Tamiko Chacon Results: Date of Service: 12/23/23 Follow Up: Procedure(s): MM tomosynthesis diagnostic BI Accession Number(s): [id number] cc: Tamiko Chacon; Domingo Snyder M.D. Patient Name: DIANA BARRIGA MR#: [id number] : 1990 Exam Date: 12/23/2023 Ordering Doctor: [...] Treatments None Family Cancers None LOCATION: [facility] BREAST COMPOSITION: Extremely dense, which lowers [...] Signed By: 12/23/23 1348 DD/ 1347 TD/TT: Online Program Coordinator: [place] [facility] Panel InformationOrdered By: Radiologist Radiology on 01-88-9727HV[facility] Work Phone: No Panel Informationon 16-36-2807Lzvjxukus Study observation (narrative)Gen[employer]te BREAST LT LIMITEDon 45-97-1907DpySh[place], [place] [address] Ultrasound Report Signed Patient: DIANA BARRIGA MR#: [id number] : 1990 Acct:[id number] Age/Sex: 33 / F ADM Date: 12/23/23 Loc: MAMMO Attending Dr: Jefferson Gibbs D.O. Ordering Physician: Jefferson Gibbs D.O. Date of Service: 12/23/23 Procedure(s): US breast LT limited Accession Number(s): [id number] cc: Jefferson Gibbs D.O.; Domingo Snyder M.D. Patient Name: DIANA BARRIGA MR#: [id number] : 1990 Exam Date: 12/23/2023 Ordering Doctor: [...] Treatments None Family Cancers None LOCATION: [facility] BREAST COMPOSITION: Extremely dense, which lowers [...] Signed By: 12/23/23 1348 DD/ 1347 TD/TT: Online Program Coordinator:TBHRadiology, Radiologist, - 12/23/2023 [place] [address] Ultrasound Report Signed Patient: DIANA BARRIGA MR#: [id number] : 1990 Acct:[id number] Age/Sex: 33 / F ADM Date: 12/23/23 Loc: MAMMO Attending Dr: Jefferson Gibbs D.O. Ordering Physician: Jefferson Gibbs D.O. Date of Service: 12/23/23 Procedure(s): US breast LT limited Accession Number(s): [id number] cc: Jefferson Gibbs D.O.; Domingo Snyder M.D. Patient Name: DIANA BARRIGA MR#: [id number] : 1990 Exam Date: 12/23/2023 Ordering Doctor: [...] Treatments None Family Cancers None LOCATION: [facility] BREAST COMPOSITION: Extremely dense, which lowers [...] Signed By: 12/23/23 1348 DD/ 46 TD/TT: Online Program Coordinator: [place] [facility] AUTO DIFFon 62-54-8996VSVS #0.1 103/ulNormal0.0-0.1The [facility] HospitalComment on above:Performed By: #### URIC 24 #### [facility] [address] [place] [address] Dr. Ramses DumasBasophils/100 WBC (Bld)0.5 %Normal0.2-2.0The [facility] Comment on above:Performed By: #### URIC 24 #### [facility] [address] [place] [address] Dr. Ramses Hoskins #0.0 103/ulNormal0.0-0.7The [facility] HospitalComment on above: Performed By: #### URIC 24 #### [facility] [address] [place] [address] Dr. Ramses Penaosinophils/100 WBC (Bld)0.4 %Critically low0.9-7.0The [facility] HospitalComment on above:Performed By: #### URIC 24 #### [facility] [address] [place] [address] Dr. Ramses Pnearythrocyte distribution width (RBC) [Ratio]13.7 %Bchndt30.0-15.0 The [facility] HospitalComment on above:Performed By: #### URIC 24 #### [facility] [address] [place] [address] Dr. Ramses DumasHematocrit (Bld) [Volume fraction]45.1 %Ilmpgn15.0-48.0The [facility] HospitalComment on above:Performed By: #### URIC 24 #### [facility] [address] [place] [address] Dr. Ramses DumasHemoglobin (Bld) [Mass/Vol]14.3 g/fHRoxtef37.0-16.0The [facility] HospitalComment on above:Performed By: #### URIC 24 #### [facility] [address] [place] [address] Dr. Ramses Rowe #0.02 10e3/ulNormal0.00-0.03The [facility] HospitalComment on above:Performed By: #### URIC 24 #### [facility] [address] [place] [address] Dr. Ramses Rowe %0.2 %Normal0.0-0.5The [facility] HospitalComment on above: Performed By: #### URIC 24 #### [facility] [address] [place] [address] Dr. Ramses Ramos #2.5 103/ulNormal1.2-3.8The [facility] HospitalComment on above:Performed By: #### URIC 24 #### [facility] [address] [place] [address] Dr. Ramses Bejaranohocytes/100 WBC (Bld)26.4 %Vmdssj91.5-60.0The [facility] HospitalComment on above:Performed By: #### URIC 24 #### [facility] [address] [place] [address] Dr. Ramses Santos DIFF REQNONormalThe [facility] HospitalComment on above: Performed By: #### URIC 24 #### [facility] [address] [place] [address] Dr. Ramses Garcia (RBC) [Entitic mass]25.6 pgCritically low26.7-34.0The [facility] HospitalComment on above:Performed By: #### URIC 24 #### [facility] [address] [place] [address] Dr. Ramses Parisi (RBC) [Mass/Vol]31.7 g/aCQrnsri69.9-35.2The [facility] HospitalComment on above:Performed By: #### URIC 24 #### [facility] [address] [place] [address] Dr. Ramses Parisi (RBC) [Entitic vol]80.7 fLCritically low81.0-99.0The [facility] HospitalComment on above:Performed By: #### URIC 24 #### [facility] [address] [place] [address] Dr. Ramses hSarif #0.7 103/ulNormal0.3-0.8The [facility] HospitalCompine rest christian mental health services on above:Performed By: #### URIC 24 #### [facility] [address] [place] [address] Dr. Ramses Cunhaocytes/100 WBC (Bld)7.6 %Normal1.7-12.0[facility] Comment on above:Performed By: #### URIC 24 #### [facility] [address] [place] [address] Dr. Ramses Silva #6.1 103/ulNormal1.4-6.5The [facility] HospitalComment on above:Performed By: #### URIC 24 #### [facility] [address] [place] [address] Dr. Ramses Shelbyophils/100 WBC (Bld)64.9 %Optufn83.0-75.0The [facility] HospitalComment on above:Performed By: #### URIC 24 #### [facility] [address] [place] [address] Dr. Ramses Whaleylet mean volume (Bld) [Entitic vol]11.0 fLNormal9.5-13.5The [facility] HospitalComment on above:Performed By: #### URIC 24 #### [facility] [address] [place] [address] Dr. Ramses DumasPLT270 103/tsRqssjk578-961Xiu [facility] HospitalComment on above: Performed By: #### URIC 24 #### [facility] [address] [place] [address] Dr. Ramses DumasRBC5.59 106/ulCritically high4.20-5.40[facility] Comment on above:Performed By: #### URIC 24 #### [facility] [address] [place] [address] Dr. Ramses DumasWBC9.4 103/ulNormal4.0-11.0St. [facility] HospitalComment on above: Performed By: #### URIC 24 #### [facility] [address] [place] [address] Dr. Ramses Berrios ABD/PELV W CONon 26-98-1557HZ ABD/PELV W CONEXAM: CT ABD/PELV W CON [...] Electronically authenticated by: FARTUN NOVOA Date: 2023-02-16 18:21[facility] URINE PROFILEon 71-57-1722Xwupzqeay Ql (U)SMALLAbnormal NEGATIVESt. Vincent HospitalComment on above:Performed By: #### CMP #### [facility] [address] [place] [address] Dr. Ramses Stafford (U)CLEARNormalCLEARBlanchard Valley Health System [facility] on above: Performed By: #### CMP #### [facility] [address] [address] [address] Ramses Francis (U)YELLOWNormalYELLOWBlanchard Valley Health System [facility]uff[facility] on above: Performed By: #### CMP #### [facility] [address] [place] [address] Dr. Ramses Lizarraga micrscopic examination will be performed if indicated. NormalSt. Vincent HospitalComment on above:Performed By: #### CMP #### [facility] [address] [place] [address] Dr. Ramses DumasGlucose Ql (U)NegativeNormalNEGATIVESt. Vincent HospitalComment on above:Performed By: #### CMP #### [facility] [address] [place] [address] Dr. Ramses DumasHemoglobin Ql (U)NegativeNormalNEGWright-Patterson Medical Center Comment on above:Performed By: #### CMP #### [facility] [address] [place] [address] Dr. Ramses DumasKetones Ql (U)40 mg/dlAbnormalNEGWright-Patterson Medical Center Comment on above:Performed By: #### CMP #### [facility] [address] [place] [address] Dr. Ramses DumasLEUKOCYTESSMALLAbnormalNEGATIVESt. Vincent HospitalComment on above:Performed By: #### CMP #### [facility] [address] [place] [address] Dr. Ramses DumasNitrite Ql (U)NegativeNormalNEGWright-Patterson Medical CenterComment on above:Performed By: #### CMP #### [facility] [address] [place] [address] Dr. Ramses DumaspH (U)7.0 [pH]Normal5-9St. Vincent HospitalComment on above: Performed By: #### CMP #### [facility] [address] [place] [address] Dr. Ramses DumasProtein (U) [Mass/Vol]30 mg/dLAbnormalNEGATIVE/ TRACEThe [facility] HospitalComment on above:Performed By: #### CMP #### [facility] [address] [place] [address] Dr. Ramses DumasSPEC GRAVITY1.492Gqkigy5.005-<=1.025St. Vincent HospitalComment on above:Performed By: #### CMP #### [facility] [address] [place] [address] Dr. Ramses Carrasco MICRO INDINDICATEDNormalThe [facility] HospitalComment on above: Performed By: #### CMP #### [facility] [address] [place] [address] Dr. Ramses Wright Qn (U)4 {Lucero'U}/dLAbnormal0.2 - 1.0The [facility] HospitalComment on above:Performed By: #### CMP #### [facility] [address] [place] [address] Dr. Ramses DumasLIPASEon 98-97-4835Bwttwn [Catalytic activity/Vol]67.0 U/L Critically low73.0-393.0The [facility] HospitalCompine rest christian mental health services on above:Performed By: #### URCX #### [facility] [address] [place] [address] Dr. Ramses Pisano PROFILEon 05-16-0849Pdwpbij [Mass/Vol]4.1 g/dLNormal3.4-5.0 The [facility] HospitalCompine rest christian mental health services on above:Performed By: #### URCX #### [facility] [address] [place] [address] Dr. Ramses DumasAlbumin/Globulin [Mass ratio]1.0 {ratio}NormalThe [facility] HospitalComp[facility] on above:Performed By: #### URCX #### [facility] [address] [place] [address] Dr. Ramses Conteh [Catalytic activity/Vol]85 U/YGedard70-892Ucx [facility] on above:Performed By: #### URCX #### [facility] [address] [place] [address] Dr. Ramses Perez [Catalytic activity/Vol]61 U/LCritically cnuv33-35Yec [facility] on above:Performed By: #### URCX #### [facility] [address] [place] [address] Dr. Ramses DumasAST [Catalytic activity/Vol]43 U/LCritically jajh49-17Gze [facility] HospitalComment on above:Performed By: #### URCX #### [facility] [address] [address] [address] Ramses MillsI, CONJUGATED0.1 mg/dLNormal0.0-0.2The [facility] Comment on above:Performed By: #### URCX #### [facility] [address] [place] [address] Dr. Ramses Millsirubin [Mass/Vol]0.7 mg/dLNormal0.2-1.0[facility] Comment on above:Performed By: #### URCX #### [facility] [address] [place] [address] Dr. Ramses DumasGlobulin (S) [Mass/Vol]4.2 g/dLNormalThe [facility] HospitalComment on above:Performed By: #### URCX #### [facility] [address] [place] [address] Dr. Ramses DumasProtein [Mass/Vol]8.3 g/dLCritically high6.4-8.2The [facility] HospitalComment on above:Performed By: #### URCX #### [facility] [address] [place] [address] Dr. Ramses DumasPREGNANCY URon 75-07-3107HQAHLTHSD, QUALNegativeNormalNEGATIVEThe [facility] HospitalComment on above:Performed By: #### CMP #### [facility] [address] [place] [address] Dr. Ramses DumasPROF CHEM 8 (BAS METB)on 03-34-7790Ixwkg gap [Moles/Vol]14.2 mmol/LNormalThe [facility] HospitalComment on above:Performed By: #### URCX #### [facility] [address] [place] [address] Dr. Ramses DumasCalcium [Mass/Vol]9.5 mg/dLNormal8.5-10.1[facility] Comment on above:Performed By: #### URCX #### [facility] [address] [place] [address] Dr. Ramses DumasChloride [Moles/Vol]102 mmol/KCdijhd37-870Pbc [facility] Comment on above:Performed By: #### URCX #### [facility] [address] [address] [address] Ramses DumasCO2 [Moles/Vol]27.5 mmol/CCpcgfy11.0-32.0The [facility] Comment on above:Performed By: #### URCX #### [facility] [address] [address] [address] Ramses DumasCreatinine [Mass/Vol]0.71 mg/dLNormal0.55-1.02The [facility] HospitalComment on above:Performed By: #### URCX #### [facility] [address] [place] [address] Dr. Pearce ChangEGFR-AF CHILEAN>60Normal>=60The [facility] HospitalComment on above:Performed By: #### URCX #### [facility] [address] [place] [address] Dr. Ramses PenaGFR-NON AF CHILEAN>60Normal>=60[facility] HospitalComment on above:Performed By: #### URCX #### [facility] [address] [place] [address] Dr. Ramses DumasGlucose [Mass/Vol]90 mg/oOJprrfd74-727HubSt. Vincent Hospital Comment on above:Performed By: #### URCX #### [facility] [address] [address] [address] Ramses DumasPotassium [Moles/Vol]3.7 mmol/LNormal3.5-5.1[facility] Comment on above:Performed By: #### URCX #### [facility] [address] [address] [address] Ramses DumasSodium [Moles/Vol]140 mmol/UTognbk102-328Zoq [facility] Comment on above:Performed By: #### URCX #### [facility] [address] [place] [address] Dr. Ramses Coronado nitrogen [Mass/Vol]6.0 mg/dLCritically low7.0-18.0[facility]. [facility] HospitalComment on above:Performed By: #### URCX #### [facility] [address] [place] [address] Dr. Ramses Coronado nitrogen/Creatinine [Mass ratio]8.5 mg/mgNoGood Samaritan HospitalComment on above:Performed By: #### URCX #### [facility] [address] [place] [address] Dr. Ramses Olsen MICROSCOPIC ONLYon 04-62-5640IVPEXZBVXHUP SEENNormalNONE SEENSt. Vincent HospitalComment on above:Performed By: #### URIC 24 #### [facility] [address] [place] [address] Dr. Ramses Mendenhall identified Cx Nom (U)NOT INDICATEDNoGood Samaritan HospitalComment on above:Performed By: #### URIC 24 #### [facility] [address] [place] [address] Dr. Ramses Hays SEENNormalNONE SEENSt. Vincent HospitalCompine rest [facility] on above:Performed By: #### URIC 24 #### [facility] [address] [place] [address] Dr. Ramses Dominguez LM Nom (Urine sed)NONE SEENNormalNONE SEENSt. Vincent HospitalCompine rest [facility] on above:Performed By: #### URIC 24 #### [facility] [address] [place] [address] Dr. Pearce ChangEpithelial cells LM Ql (Urine sed)FEWAbnormalNONE SEEN /RAREThe [facility] HospitalComment on above:Performed By: #### URIC 24 #### [facility] [address] [place] [address] Dr. Ramses AlcarazLAbnormalNONE SEENSt. Vincent HospitalComment on above:Performed By: #### URIC 24 #### [facility] [address] [place] [address] Dr. Ramses Cooper SEENAbnormal0-2[facility] on above: Performed By: #### URIC 24 #### [facility] [address] [place] [address] Dr. Ramses DumasWBC0-2AbnormalNONE SEENSt. Vincent HospitalCompine rest [facility] on above: Performed By: #### URIC 24 #### [facility] [address] [place] [address] Dr. Ramses Andrade ACOG PANEL 2: 30 to 66on 02-10-2023..NormalSt. Vincent HospitalComment on above:Result Comment: Performed at: WBPerformed By: #### URCX #### [facility] [address] [place] [address] Dr. Ramses Gonzalez Gdln ACOG Lvuxoix27-17IchtxjMglGood Samaritan HospitalCompine rest [facility] mental health services on above:Performed By: #### URCX #### [facility] [address] [place] [address] Dr. Ramses DumasDIAGNOSIS:CommentACMC Healthcare System on above: Result Comment: NEGATIVE FOR INTRAEPITHELIAL LESION OR MALIGNANCY. REACTIVE CELLULAR CHANGES AND/OR REPAIR ARE PRESENT. Performed at: WBPerformed By: #### URCX #### [facility] [address] [place] [address] Dr. Pearce ChangElectronically signed by:[facility] Comment on above:Result Comment: Capri Boston MD, Pathologist Performed at: WBPerformed By: #### URCX #### [facility] [address] [place] [address] Dr. Ramses Dewitt AptimaNegativeNormalNegativeBlanchard Valley Health System [facility] on above:Result Comment: This nucleic acid amplification test detects fourteen high-risk HPV types (16,18,31,33,35,39,45,51,52,56,58,59,66,68) without differentiation. Performed at: =GPerformed By: #### URCX #### [facility] [address] [place] [address] Dr. Ramses Dewitt Genotype ReflexCommentSelect Medical Specialty Hospital - YoungstownComment on above:Result Comment: Criteria not met, HPV Genotype not performed. Performed at: WBPerformed By: #### URCX #### [facility] [address] [place] [address] Dr. Ramses DumasMethodology:CommentACMC Healthcare System on above: Result Comment: This liquid based ThinPrep(R) pap test was screened with the use of an image guided system. Performed at: WBPerformed By: #### URCX #### [facility] [address] [place] [address] Dr. Ramses DumasNote:CommentACMC Healthcare System on above:Result Comment: The Pap smear is a screening test designed to aid in the detection of premalignant and malignant conditions of the uterine cervix. It is not a diagnostic procedure and should not be used as the sole means of detecting cervical cancer. Both false-positive and false-negative reports do occur. . Performed at: WBPerformed By: #### URCX #### [facility] [address] [place] [address] Dr. Ramses DumasPerformed by:CommentNoOhioHealth Dublin Methodist Hospital on above: Result Comment: Cuca Briceno, Railroad Brake Operator (ASCP) Performed at: WBPerformed By: #### URCX #### [facility] [address] [place] [address] Dr. Ramses DumasSpecimen adequacy:CommentACMC Healthcare System on above:Result Comment: Satisfactory for evaluation. Endocervical and/or squamous metaplastic cells (endocervical component) are present. Performed at: WBPerformed By: #### URCX #### [facility] [address] [place] [address] Dr. Ramses DumasOXALATE 24HR URINEon 10-10-1127Ovglrucj, Urine44 mg/LNormal UndefinedThe [facility] on above:Performed By: #### URIC 24 #### [facility] [address] [place] [address] Dr. Ramses DumasOxalates, Urine 24hr44 mg/24 hrCritically high4-31The [facility] HospitalComment on above:Performed By: #### URIC 24 #### [facility] [address] [address] [address] Ramses DumasCITRATE URINE 24HRon 49-79-5179Vygfle Acid, U, 04cs760 mg/24 hr Oxlesi175-6052Ang [facility] HospitalComment on above:Result Comment: This test was developed and its performance characteristics determined by [employer]. It has not been cleared or approved by the Food and Drug Administration.Performed By: #### CITRATU #### [facility] [address] [address] [address] Ramses DumasCitric Acid, Dtxyb914 mg/LNormalUndefinedSt. [facility] Hospital Comment on above:Performed By: #### CITRATU #### [facility] [address] [place] [address] Dr. Ramses DumasMAGNESIUM 24HR URINEon 55-97-0782Vrpyqvayz 24hr Vvlef493.0 mg/24 wcSztcqz30.0-293.0The [facility] HospitalComment on above:Performed By: #### URCX #### [facility] [address] [place] [address] Dr. Ramses Dongnesium UR11.9 mg/dLNormalNot Estab.The [facility] Comment on above:Performed By: #### URCX #### [facility] [address] [place] [address] Dr. Ramses DumasPHOSPHORUS 24HR URINEon 42-50-4369Ovqiidzsox, Urine81.4 mg/dL NormalNot Estab.The [facility] HospitalComment on above:Performed By: #### BLDCX2 #### [facility] [address] [place] [address] Dr. Ramses DumasPhosphorus, Urine 83xo929 mg/24 paBacxsd655-4400Dfy [facility] HospitalComment on above:Performed By: #### BLDCX2 #### [facility] [address] [place] [address] Dr. Ramses DumasPTH INTACTon 28-14-8523DEZ, Ngdten23 pg/zANaxmiz22-47Hwc [facility] HospitalComment on above:Performed By: #### URCX #### [facility] [address] [place] [address] Dr. Ramses DumasURIC ACID 24 HR URINEon 36-48-0623Agln Acid, Urine69.9 mg/dL NormalNot Estab.The [facility] HospitalComment on above:Performed By: #### URIC 24 #### [facility] [address] [place] [address] Dr. Ramses DumasUric Acid, Urine 49gz925.0 mg/24 emXujahm236.7-902.1The [facility] HospitalComment on above:Performed By: #### URIC 24 #### [facility] [address] [place] [address] Dr. Ramses Umaña 83-53-3374Gffl nitrogen [Mass/Vol]7.0 mg/dLNormal7.0-18.0 The [facility] HospitalComment on above:Performed By: #### CBC #### [facility] [address] [place] [address] Dr. Ramses DumasCALCIUMon 45-69-9987Sjyylra [Mass/Vol]8.8 mg/dLNormal8.5-10.1The [facility] HospitalComment on above:Performed By: #### CBC #### [facility] [address] [place] [address] Dr. Ramses DumasCALCIUM 24 HR URINEon 01-69-0367VXHR, 24 HR UR295.0 mg/24 hr Mwqlax003.0-300.0The [facility] HospitalComment on above:Performed By: #### BLDCX2 #### [facility] [address] [place] [address] Dr. Ramses Carrasco IVWBWAJ58.5 mg/dLCritically high5.1-21.0The [facility] Comment on above:Performed By: #### BLDCX2 #### [facility] [address] [place] [address] Dr. Ramses DumasCHLORIDEon 11-04-3032Qfubisfi [Moles/Vol]105 mmol/RJmjahj29-658 The [facility] Hospitalment on above:Performed By: #### CBC #### [facility] [address] [place] [address] Dr. Ramses DumasCO2on 65-22-3060IB8 [Moles/Vol]26.4 mmol/FCxpltx34.0-32.0The [facility] HospitalComment on above:Performed By: #### CMP #### [facility] [address] [place] [address] Dr. Ramses Kim 24 HR URINEon 16-93-4176YBWE, 24 HR DS7533.30 mg/24 hr Critically zbao746.00-1,800.00The [facility] Hospitalment on above:Performed By: #### CVDTBH #### [facility] [address] [place] [address] Dr. Ramses Olsen AKEDC396.73 mg/vSKikvzs92.00-300.00The [facility] on above:Performed By: #### CVDTBH #### [facility] [address] [place] [address] Dr. Ramses DumasCREATININEon 05-28-8679Pnymvzgahl [Mass/Vol]0.70 mg/dLNormal 0.55-1.02[facility] Generalment on above:Performed By: #### CMP #### [facility] [address] [place] [address] Dr. Ramses PenaGFR-AF CHILEAN>60Normal>=60The [facility] on above:Performed By: #### CMP #### [facility] [address] [place] [address] Dr. Ramses PenaGFR-NON AF CHILEAN>60Normal>=60The [facility] Hospitalment on above:Performed By: #### CMP #### [facility] [address] [place] [address] Dr. Ramses Ortiz 68-45-9180Dmdzwv [Moles/Vol]139 mmol/ARtphkk176-427Nsj [facility] Hospitalment on above:Performed By: #### CMP #### [facility] [address] [place] [address] Dr. Ramses DumasPOTASSIUMon 20-30-0623Ktypaxwzf [Moles/Vol]4.0 mmol/LNormal 3.5-5.1The [facility] HospitalComment on above:Performed By: #### CMP #### [facility] [address] [place] [address] Dr. Ramses Rueda 24 HR URINEon 59-54-6933TH, 24 HR UR193 mmol/24 hrNormal 40-220The [facility] HospitalComment on above:Performed By: #### CVDTBH #### [facility] [address] [place] [address] Dr. Ramses Bejaranodium (U) [Moles/Vol]193 mmol/LCritically kbux70-40Iwz [facility] HospitalComp[facility] on above:Performed By: #### CVDTBH #### [facility] [address] [place] [address] Dr. Ramses DumasUR TOT LTL4789 ml/24 HRNormalThe [facility] HospitalComment on above:Performed By: #### CVDTBH #### [facility] [address] [place] [address] Dr. Ramses DumasPerformed By: #### BLDCX2 #### [facility] [address] [place] [address] Dr. Ramses DumasURIC ACID SERUMon 18-97-6223Sxwtm [Mass/Vol]5.6 mg/dLNormal 2.6-6.0The [facility] HospitalComment on above:Performed By: #### CMP #### [facility] [address] [place] [address] Dr. Ramses DumasXR KUB 1 VIEWon 75-55-5504YB KUB 1 VIEWEXAMINATION: XR KUB 1 VIEW [...] Electronically authenticated by: JENNIFER GATES Date: 2022-12-15 08:26[facility] AUTO DIFFon 91-25-2416ENDI #0.0 103/ulNormal0.0-0.1The [facility] HospitalComment on above:Performed By: #### URCX #### [facility] [address] [place] [address] Dr. Ramses DumasBasophils/100 WBC (Bld)0.7 %Normal0.2-2.0The [facility] Comment on above:Performed By: #### URCX #### [facility] [address] [place] [address] Dr. Ramses Hoskins #0.1 103/ulNormal0.0-0.7The [facility] HospitalComment on above: Performed By: #### URCX #### [facility] [address] [address] [address] Ramses Penaosinophils/100 WBC (Bld)1.9 %Normal0.9-7.0The [facility] Comment on above:Performed By: #### URCX #### [facility] [address] [place] [address] Dr. Ramses Penarythrocyte distribution width (RBC) [Ratio]13.6 %Nyfuij62.0-15.0 The [facility] HospitalComment on above:Performed By: #### URCX #### [facility] [address] [place] [address] Dr. Ramses DumasHematocrit (Bld) [Volume fraction]37.3 %Qgfyfy04.0-48.0The [facility] HospitalComment on above:Performed By: #### URCX #### [facility] [address] [place] [address] Dr. Ramses DumasHemoglobin (Bld) [Mass/Vol]12.2 g/kLZpbvcf28.0-16.0The [facility] HospitalComment on above:Performed By: #### URCX #### [facility] [address] [place] [address] Dr. Ramses Rowe #0.02 10e3/ulNormal0.00-0.03The [facility] HospitalComment on above:Performed By: #### URCX #### [facility] [address] [place] [address] Dr. Ramses Rowe %0.3 %Normal0.0-0.5The [facility] HospitalComment on above: Performed By: #### URCX #### [facility] [address] [place] [address] Dr. Ramses Ramos #2.3 103/ulNormal1.2-3.8The [facility] HospitalComment on above:Performed By: #### URCX #### [facility] [address] [place] [address] Dr. Ramses Bejaranohocytes/100 WBC (Bld)39.6 %Xtkmvh51.5-60.0The [facility] HospitalComp[facility] on above:Performed By: #### URCX #### [facility] [address] [place] [address] Dr. Ramses Santos DIFF REQNONormalThe [facility] HospitalComment on above: Performed By: #### URCX #### [facility] [address] [place] [address] Dr. Ramses Parisi (RBC) [Entitic mass]26.4 pgCritically low26.7-34.0The [facility] HospitalComment on above:Performed By: #### URCX #### [facility] [address] [place] [address] Dr. Ramses Parisi (RBC) [Mass/Vol]32.7 g/eYLzgnfw38.9-35.2The [facility] HospitalComment on above:Performed By: #### URCX #### [facility] [address] [place] [address] Dr. Yilan ChangMCV (RBC) [Entitic vol]80.7 fLCritically low81.0-99.0The [facility] HospitalComment on above:Performed By: #### URCX #### [facility] [address] [place] [address] Dr. Ramses Sharif #0.5 103/ulNormal0.3-0.8The [facility] HospitalComment on above:Performed By: #### URCX #### [facility] [address] [place] [address] Dr. Ramses Cunhaocytes/100 WBC (Bld)8.0 %Normal1.7-12.0The [facility] Comment on above:Performed By: #### URCX #### [facility] [address] [place] [address] Dr. Ramses Silva #2.9 103/ulNormal1.4-6.5The [facility] HospitalComment on above:Performed By: #### URCX #### [facility] [address] [place] [address] Dr. Ramses Guallpautrophils/100 WBC (Bld)49.5 %Yiheen73.0-75.0The [facility] HospitalComment on above:Performed By: #### URCX #### [facility] [address] [place] [address] Dr. Ramses Whaleylet mean volume (Bld) [Entitic vol]9.0 fLCritically low 9.5-13.5The [facility] HospitalComment on above:Performed By: #### URCX #### [facility] [address] [place] [address] Dr. Ramses DumasPLT337 103/mxHiuumo796-081Hbz [facility] HospitalComment on above: Performed By: #### URCX #### [facility] [address] [place] [address] Dr. Ramses DumasRBC4.62 106/ulNormal4.20-5.40The [facility] HospitalComment on above:Performed By: #### URCX #### [facility] [address] [place] [address] Dr. Ramses DumasWBC5.9 103/ulNormal4.0-11.0The [facility] HospitalComment on above: Performed By: #### URCX #### [facility] [address] [place] [address] Dr. Ramses DumasPOINT OF CARE GLUCOSEon 18-03-3032Mqftybu [Mass/Vol]115 mg/dL Critically nqyb60-890Pqj [facility] HospitalComment on above:Performed By: #### CVDTBH #### [facility] [address] [place] [address] Dr. Ramses DumasPREG QUANT HCGon 39-06-3588KNA QUANT<1NormalThe [facility] Comment on above:Performed By: #### CVDTBH #### [facility] [address] [place] [address] Dr. Ramses DumasHCG RANGESEE [facility] CenterComment on above: Result Comment: 5-50 0.2-1 WEEK 50-500 1-2 WEEKS 100-5,000 2-3 WEEKS 500-10,000 3-4 WEEKS 1,000-50,000 4-5 WEEKS 10,000-100,000 5-6 WEEKS 15,000-200,000 6-8 WEEKS 10,000-100,000 2-3 MONTHSPerformed By: #### CVDTBH #### [facility] [address] [place] [address] Dr. Ramses DmuasUS PELVIS AND TRANSVAGon 87-03-5615WS PELVIS AND TRANSVAG Begin Addendum #1 Impression [...] uterus 4.9 cm right ovarian simple cystNormalThe [facility] HospitalCB AUTO DIFFon 59-77-2606MXNN #0.1 103/ulNormal0.0-0.1The [facility] HospitalComment on above: Performed By: #### URCX #### [facility] [address] [address] [address] Ramses DumasBasophils/100 WBC (Bld)0.8 %Normal0.2-2.0[facility] Comment on above:Performed By: #### URCX #### [facility] [address] [place] [address] Dr. Ramses Hoskins #0.1 103/ulNormal0.0-0.7The [facility] HospitalComment on above: Performed By: #### URCX #### [facility] [address] [address] [address] Ramses Penaosinophils/100 WBC (Bld)1.4 %Normal0.9-7.0[facility] Comment on above:Performed By: #### URCX #### [facility] [address] [address] [address] Ramses Penarythrocyte distribution width (RBC) [Ratio]13.4 %Bwdiev95.0-15.0 The [facility] HospitalComment on above:Performed By: #### URCX #### [facility] [address] [place] [address] Dr. Ramses DumasHematocrit (Bld) [Volume fraction]38.8 %Ljevhj71.0-48.0The [facility] HospitalComment on above:Performed By: #### URCX #### [facility] [address] [place] [address] Dr. Ramses DumasHemoglobin (Bld) [Mass/Vol]12.7 g/bQWhacha81.0-16.0The [facility] HospitalComment on above:Performed By: #### URCX #### [facility] [address] [place] [address] Dr. Ramses Rowe #0.01 10e3/ulNormal0.00-0.03The [facility] HospitalComment on above:Performed By: #### URCX #### [facility] [address] [place] [address] Dr. Ramses Rowe %0.1 %Normal0.0-0.5The [facility] HospitalComment on above: Performed By: #### URCX #### [facility] [address] [place] [address] Dr. Ramses Ramos #1.9 103/ulNormal1.2-3.8The [facility] HospitalComment on above:Performed By: #### URCX #### [facility] [address] [place] [address] Dr. Ramses Bejaranohocytes/100 WBC (Bld)26.4 %Luaziy65.5-60.0The [facility] HospitalComment on above:Performed By: #### URCX #### [facility] [address] [place] [address] Dr. Ramses HenriquezUAL DIFF REQNONormalThe [facility] HospitalComment on above: Performed By: #### URCX #### [facility] [address] [place] [address] Dr. Ramses Garcia (RBC) [Entitic mass]26.3 pgCritically low26.7-34.0The [facility] HospitalComment on above:Performed By: #### URCX #### [facility] [address] [place] [address] Dr. Ramses Tellez (RBC) [Mass/Vol]32.7 g/bXCniwlx02.9-35.2The [facility] HospitalComment on above:Performed By: #### URCX #### [facility] [address] [place] [address] Dr. Ramses ParisiV (RBC) [Entitic vol]80.5 fLCritically low81.0-99.0The [facility] HospitalComment on above:Performed By: #### URCX #### [facility] [address] [place] [address] Dr. Ramses Sharif #0.6 103/ulNormal0.3-0.8The [facility] HospitalComment on above:Performed By: #### URCX #### [facility] [address] [place] [address] Dr. Ramses Cunhaocytes/100 WBC (Bld)8.2 %Normal1.7-12.0The [facility] Comment on above:Performed By: #### URCX #### [facility] [address] [place] [address] Dr. Ramses Silva #4.5 103/ulNormal1.4-6.5The [facility] HospitalComment on above:Performed By: #### URCX #### [facility] [address] [place] [address] Dr. Ramses Guallpautrophils/100 WBC (Bld)63.1 %Lvuixl91.0-75.0The [facility] HospitalComment on above:Performed By: #### URCX #### [facility] [address] [place] [address] Dr. Ramses Whaleylet mean volume (Bld) [Entitic vol]8.9 fLCritically low 9.5-13.5The [facility] HospitalComment on above:Performed By: #### URCX #### [facility] [address] [place] [address] Dr. Ramses DumasPLT340 103/ckNfaalh130-128Zpc [facility] HospitalComment on above: Performed By: #### URCX #### [facility] [address] [place] [address] Dr. Ramses DumasRBC4.82 106/ulNormal4.20-5.40The [facility] HospitalComment on above:Performed By: #### URCX #### [facility] [address] [address] [address] Ramses DumasWBC7.1 103/ulNormal4.0-11.0The [facility] HospitalComment on above: Performed By: #### URCX #### [facility] [address] [address] [address] Ramses DumasCovid-19 PCR ([facility])on 34-19-3373ATNB-CoV-2 (COVID-19) RNA FRANCESCA+probe Ql (Unsp spec)Not detectedNormalNOT DETECTEDThe [facility] Comment on above:Result Comment: This test is not yet approved or cleared by the [place] FDA. When there are no FDA-approved or cleared tests available, and other criteria are met, FDA can make tests available under an emergency access mechanism called an Emergency Use Authorization (EUA). The EUA for this test is supported by the [place] of Health and Human Service's (HHS's) declaration [...] consistent with SARS-CoV-2.Performed By: #### URCX #### [facility] [address] [address] [address] Ramses DumasFREE T4on 18-33-1779Ughc T4 [Mass/Vol]0.99 ng/dLNormal0.76-1.46 The [facility] HospitalComment on above:Performed By: #### BLDCX2 #### [facility] [address] [place] [address] Dr. Ramses DumasGLYCOHEMOGLOBIN A1Con 73-40-3926SGX RECOMMENDATIONSEE BELOWNormal The [facility] HospitalComment on above:Result Comment: ADA RECOMMENDED LIMIT 4.0 - 6.0 ADA THERAPEUTIC TARGET < 7.0 ACTION SUGGESTED > 7.0Performed By: #### CVDTBH #### [facility] [address] [place] [address] Dr. Ramses DumasGlucose [Mass/Vol]117 mg/dLNoGood Samaritan HospitalComment on above:Performed By: #### CVDTBH #### [facility] [address] [place] [address] Dr. Ramses DumasHbA1c (Bld) [Mass fraction]5.7 %Normal4.5-6.2The [facility] HospitalComment on above:Performed By: #### CVDTBH #### [facility] [address] [place] [address] Dr. Ramses Padgett 98-60-4638EWV Coag (PPP) [Relative time]0.97 {INR} NormalThe [facility] HospitalComment on above:Performed By: #### URIC 24 #### [facility] [address] [place] [address] Dr. Ramses Irvin GUIDELINESSEE BELOWSelect Medical Specialty Hospital - YoungstownComment on above:Result Comment: DESIRED INR: 2.0 - 3.0 CONDITIONS NOT LISTED BELOW 2.5 - 3.5 FOR PROSTHETIC HEART VALVE REPLACEMENT 2.5 - 3.5 RECURRENT THROMBOSIS Performed By: #### URIC 24 #### [facility] [address] [place] [address] Dr. Ramses Manzanares Coag (PPP) [Time]10.3 sNormal9.0-11.6The [facility] Comment on above:Performed By: #### URIC 24 #### [facility] [address] [place] [address] Dr. Ramses Payton 02-66-2170zCGY Coag (Bld) [Time]27.7 fTyhkdu97.3-36.2The [facility] HospitalComment on above:Performed By: #### URIC 24 #### [facility] [address] [place] [address] Dr. Ramses Camilo 96-58-4483EIO6.667 uIU/mLNormal0.358-3.740The [facility] HospitalComment on above:Performed By: #### CVDTBH #### [facility] [address] [place] [address] Dr. Ramses Jackson HCG QUALon [id number], QUALNegativeNormalNEGATIVE The [facility] HospitalComment on above:Performed By: #### URIC 24 #### [facility] [address] [place] [address] Dr. Ramses DumasCovid-19 PCR ([facility])on 61-56-2006VMFW-CoV-2 (COVID-19) RNA FRANCESCA+probe Ql (Unsp spec)Not detectedNormalNOT DETECTEDThe [facility] Comment on above:Result Comment: This test is not yet approved or cleared by the [place] FDA. When there are no FDA-approved or cleared tests available, and other criteria are met, FDA can make tests available under an emergency access mechanism called an Emergency Use Authorization (EUA). The EUA for this test is supported by the [place] of Health and Human Service's (HHS's) declaration [...] consistent with SARS-CoV-2.Performed By: #### CVDTBH #### [facility] [address] [place] [address] Dr. Ramses Lemus AUTO DIFFon [id number] #0.1 103/ulNormal0.0-0.1The [facility] HospitalComment on above:Performed By: #### BLDCX2 #### [facility] [address] [place] [address] Dr. Ramses DumasBasophils/100 WBC (Bld)0.7 %Normal0.2-2.0The [facility] Comment on above:Performed By: #### BLDCX2 #### [facility] [address] [place] [address] Dr. Ramses Hoskins #0.2 103/ulNormal0.0-0.7The [facility] HospitalComment on above: Performed By: #### BLDCX2 #### [facility] [address] [place] [address] Dr. Ramses Penaosinophils/100 WBC (Bld)2.2 %Normal0.9-7.0The [facility] Comment on above:Performed By: #### BLDCX2 #### [facility] [address] [place] [address] Dr. Ramses Penarythrocyte distribution width (RBC) [Ratio]13.9 %Ujqmaq68.0-15.0 The [facility] HospitalComment on above:Performed By: #### BLDCX2 #### [facility] [address] [place] [address] Dr. Ramses DumasHematocrit (Bld) [Volume fraction]38.8 %Qenywn62.0-48.0The [facility] HospitalComment on above:Performed By: #### BLDCX2 #### [facility] [address] [place] [address] Dr. Ramses DumasHemoglobin (Bld) [Mass/Vol]12.6 g/pQIlpyex93.0-16.0The [facility] HospitalComment on above:Performed By: #### BLDCX2 #### [facility] [address] [place] [address] Dr. Ramses Rowe #0.03 10e3/ulNormal0.00-0.03The [facility] HospitalComment on above:Performed By: #### BLDCX2 #### [facility] [address] [place] [address] Dr. Ramses Rowe %0.3 %Normal0.0-0.5The [facility] HospitalComment on above: Performed By: #### BLDCX2 #### [facility] [address] [address] [address] Ramses Ramos #2.3 103/ulNormal1.2-3.8The [facility] HospitalComment on above:Performed By: #### BLDCX2 #### [facility] [address] [place] [address] Dr. Ramses Phelpsmphocytes/100 WBC (Bld)21.3 %Islnwr76.5-60.0The [facility] HospitalComment on above:Performed By: #### BLDCX2 #### [facility] [address] [place] [address] Dr. Ramses Santos DIFF REQNONormalThe [facility] HospitalComment on above: Performed By: #### BLDCX2 #### [facility] [address] [place] [address] Dr. Ramses Parisi (RBC) [Entitic mass]26.4 pgCritically low26.7-34.0The [facility] HospitalComment on above:Performed By: #### BLDCX2 #### [facility] [address] [place] [address] Dr. Ramses Parisi (RBC) [Mass/Vol]32.5 g/uUCfhydz85.9-35.2The [facility] on above:Performed By: #### BLDCX2 #### [facility] [address] [place] [address] Dr. Ramses Parisi (RBC) [Entitic vol]81.2 gPNfbitd27.0-99.0The [facility] HospitalComment on above:Performed By: #### BLDCX2 #### [facility] [address] [place] [address] Dr. Ramses Sharif #0.8 103/ulNormal0.3-0.8The [facility] HospitalComment on above:Performed By: #### BLDCX2 #### [facility] [address] [place] [address] Dr. Ramses Cunhaocytes/100 WBC (Bld)7.4 %Normal1.7-12.0The [facility] Comment on above:Performed By: #### BLDCX2 #### [facility] [address] [place] [address] Dr. Ramses Silva #7.3 103/ulCritically high1.4-6.5ThAvita Health System Comment on above:Performed By: #### BLDCX2 #### [facility] [address] [place] [address] Dr. Ramses Guallpautrophils/100 WBC (Bld)68.1 %Dhbdae48.0-75.0The [facility] HospitalComment on above:Performed By: #### BLDCX2 #### [facility] [address] [place] [address] Dr. Ramses Aguirre mean volume (Bld) [Entitic vol]8.8 fLCritically low 9.5-13.5The [facility] HospitalComment on above:Performed By: #### BLDCX2 #### [facility] [address] [place] [address] Dr. Ramses DumasPLT323 103/gqYkeuon709-291Njl [facility] HospitalComment on above: Performed By: #### BLDCX2 #### [facility] [address] [place] [address] Dr. Ramses DumasRBC4.78 106/ulNormal4.20-5.40The [facility] HospitalComment on above:Performed By: #### BLDCX2 #### [facility] [address] [place] [address] Dr. Ramses DumasWBC10.7 103/ulNormal4.0-11.0The [facility] HospitalComment on above:Performed By: #### BLDCX2 #### [facility] [address] [place] [address] Dr. Ramses Villaseñor URINEon [id number] URINECulture Observations: LIGHT GROWTH OF MIXED GENITAL DAIANA. NO POTENTIAL PATHOGENS SEEN.NormalThe [facility] HospitalComment on above:Performed By: #### URCX #### [facility] [address] [place] [address] Dr. Ramses Kay URINE PROFILEon 49-21-9991Yaoybcwkr Ql (U)NegativeNormal NEGATIVESt. Vincent HospitalComment on above:Performed By: #### BLDCX2 #### [facility] [address] [address] [address] Ramses Stafford (U)CLOUDYAbnormalCLEARThe [facility] HospitalComment on above:Performed By: #### BLDCX2 #### [facility] [address] [address] [address] Ramses Francis (U)YELLOWNormalYELLOWSt. Vincent HospitalComment on above: Performed By: #### BLDCX2 #### [facility] [address] [place] [address] Dr. Ramses Lizarraga micrscopic examination will be performed if indicated. NormalThe [facility] HospitalComment on above:Performed By: #### BLDCX2 #### [facility] [address] [place] [address] Dr. Ramses DumasGlucose Ql (U)NegativeNormalNEGATIVESt. Vincent HospitalComment on above:Performed By: #### BLDCX2 #### [facility] [address] [place] [address] Dr. Ramses DumasHemoglobin Ql (U)LARGEAbnormalNEGLouis Stokes Cleveland [facility] on above:Performed By: #### BLDCX2 #### [facility] [address] [place] [address] Dr. Ramses DumasKetones Ql (U)NegativeNormalNEGATIVESt. Vincent HospitalComment on above:Performed By: #### BLDCX2 #### [facility] [address] [place] [address] Dr. Ramses DumasLEUKOCYTESSMALLAbnormalNEGATIVESt. Vincent HospitalCompine rest christian mental health services on above:Performed By: #### BLDCX2 #### [facility] [address] [place] [address] Dr. Ramses DumasNitrite Ql (U)NegativeNormalNEGATIVESt. Vincent HospitalComment on above:Performed By: #### BLDCX2 #### [facility] [address] [address] [address] Ramses DumaspH (U)6.0 [pH]Normal5-9The [facility] HospitalComment on above: Performed By: #### BLDCX2 #### [facility] [address] [address] [address] Ramses DumasProtein (U) [Mass/Vol]100 mg/dLAbnormalNEGATIVE/ TRACEThe [facility] HospitalComment on above:Performed By: #### BLDCX2 #### [facility] [address] [place] [address] Dr. Ramses DumasSPEC GRAVITY>=1.713Wsegaqed4.005-<=1.025The [facility] Comment on above:Performed By: #### BLDCX2 #### [facility] [address] [place] [address] Dr. Ramses DumasUR MICRO INDINDICATEDNormalThe [facility] HospitalComment on above: Performed By: #### BLDCX2 #### [facility] [address] [place] [address] Dr. Ramses DumasUrobilinogen Qn (U)0.2 {Lucero'U}/dLNormal0.2 - 1.0The [facility] HospitalComment on above:Performed By: #### BLDCX2 #### [facility] [address] [place] [address] Dr. Ramses DumasPREGNANCY URon [id number], QUALNegativeNormalNEGATIVEThe [facility] HospitalComment on above:Performed By: #### BLDCX2 #### [facility] [address] [place] [address] Dr. Ramses DumasPROF CHEM 8 (BAS METB)on 97-65-9383Ylpmu gap [Moles/Vol]11.7 mmol/LNormalThe [facility] HospitalComment on above:Performed By: #### CMP #### [facility] [address] [place] [address] Dr. Ramses DumasCalcium [Mass/Vol]9.1 mg/dLNormal8.5-10.1[facility] Comment on above:Performed By: #### CMP #### [facility] [address] [address] [address] Ramses DumasChloride [Moles/Vol]103 mmol/ULlofda99-910Iwj [facility] Comment on above:Performed By: #### CMP #### [facility] [address] [address] [address] Ramses DumasCO2 [Moles/Vol]25.9 mmol/FPxayyx38.0-32.0The [facility] Comment on above:Performed By: #### CMP #### [facility] [address] [address] [address] Ramses DumasCreatinine [Mass/Vol]0.77 mg/dLNormal0.55-1.02St. [facility] HospitalComment on above:Performed By: #### CMP #### [facility] [address] [address] [address] Ramses PenaGFR-AF CHILEAN>60Normal>=60The [facility] HospitalComment on above:Performed By: #### CMP #### [facility] [address] [address] [address] Ramses PenaGFR-NON AF CHILEAN>60Normal>=60The [facility] HospitalComment on above:Performed By: #### CMP #### [facility] [address] [address] [address] Ramses DumasGlucose [Mass/Vol]124 mg/dLCritically kkmf28-371Bvs [facility] HospitalComment on above:Performed By: #### CMP #### [facility] [address] [address] [address] Ramses DumasPotassium [Moles/Vol]3.6 mmol/LNormal3.5-5.1[facility] Comment on above:Performed By: #### CMP #### [facility] [address] [address] [address] Ramses DumasSodium [Moles/Vol]137 mmol/PPtdquf417-603Eov [facility] Comment on above:Performed By: #### CMP #### [facility] [address] [address] [address] Ramses Coronado nitrogen [Mass/Vol]12.0 mg/dLNormal7.0-18.0St. [facility] HospitalComment on above:Performed By: #### CMP #### [facility] [address] [address] [address] Ramses Coronado nitrogen/Creatinine [Mass ratio]15.6 mg/mgNoGood Samaritan HospitalComment on above:Performed By: #### CMP #### [facility] [address] [place] [address] Dr. Ramses Olsen MICROSCOPIC ONLYon [id number] CRYSTALSRARENormal St. [facility] HospitalCompine rest [facility] on above:Performed By: #### BLDCX2 #### [facility] [address] [place] [address] Dr. Ramses SoteloCEAbnormalNONE SEENBlanchard [facility] on above:Performed By: #### BLDCX2 #### [facility] [address] [place] [address] Dr. Ramses Mendenhall identified Cx Nom (U)INDICATEDSelect Medical Specialty Hospital - YoungstownCompine rest christian mental health services on above:Performed By: #### BLDCX2 #### [facility] [address] [place] [address] Dr. Ramses Hidalgo OX CRYSTALSRARENormalSt. Vincent HospitalCompine rest [facility] mental [facility] services on above: Performed By: #### BLDCX2 #### [facility] [address] [place] [address] Dr. Ramses Hays SEENNormalNONE SEENBlanchard Valley Health System [facility] on above:Performed By: #### BLDCX2 #### [facility] [address] [place] [address] Dr. Ramses Ahnystals LM Nom (Urine sed)SEENAbthree riversNONE SEENSt. Vincent HospitalCompine rest christ[facility] mental health services on above:Performed By: #### BLDCX2 #### [facility] [address] [place] [address] Dr. Yilan ChangEpithelial cells LM Ql (Urine sed)FEWAbnormalNONE SEEN /RAREThe [facility] HospitalComment on above:Performed By: #### BLDCX2 #### [facility] [address] [place] [address] Dr. Ramses RizzoCOUSTRACEAangelormalNEELA SEENSt. Vincent HospitalCompine rest [facility] mental health services on above:Performed By: #### BLDCX2 #### [facility] [address] [place] [address] Dr. Ramses DumasZfafuQKK80-14Fbkhtuhf9-4Zto [facility] HospitalCompine rest [facility] on above: Performed By: #### BLDCX2 #### [facility] [address] [place] [address] Dr. Ramses DumasGaxjcSGJ97-59YgnahgxmXGOG SEENBlanchard [facility] on above: Performed By: #### BLDCX2 #### [facility] [address] [place] [address] Dr. Ramses TaborASTPRESENTASue SEENBlanchard Valley [facility] on above:Performed By: #### BLDCX2 #### [facility] [address] [place] [address] Dr. Ramses Tilley KIDNEYSon [id number] KIDNEYSEXAMINATION: US KIDNEYS HISTORY: Pain COMPARISON: No [...] Electronically authenticated by: GLEN PEREZ Date: 2022-09-05 11:00NoGood Samaritan HospitalCT ABD/PELVIS WO CONon [id number] ABD/PELVIS WO CON EXAMINATION: CT ABD/PELVIS WO [...] Electronically authenticated by: ERICKA IGLESIAS Date: 2022-08-29 01:10NormTrinity Health SystemCULTURE URINEon [id number] URINECulture Observations: LIGHT GROWTH OF MIXED GENITAL DAIANA. NO POTENTIAL PATHOGENS SEEN.NormalThe [facility] HospitalComment on above:Performed By: #### URCX #### [facility] [address] [place] [address] Dr. Ramses Lemus AUTO DIFFon [id number] #0.1 103/ulNormal0.0-0.1The [facility] HospitalComment on above:Performed By: #### URCX #### [facility] [address] [place] [address] Dr. Ramses DumasBasophils/100 WBC (Bld)0.5 %Normal0.2-2.0The [facility] Comment on above:Performed By: #### URCX #### [facility] [address] [place] [address] Dr. Ramses Hoskins #0.3 103/ulNormal0.0-0.7The [facility] HospitalComment on above: Performed By: #### URCX #### [facility] [address] [place] [address] Dr. Ramses Penaosinophils/100 WBC (Bld)2.3 %Normal0.9-7.0The [facility] Comment on above:Performed By: #### URCX #### [facility] [address] [place] [address] Dr. Ramses Penarythrocyte distribution width (RBC) [Ratio]13.7 %Gvlrga79.0-15.0 The [facility] HospitalComment on above:Performed By: #### URCX #### [facility] [address] [place] [address] Dr. Ramses DumasHematocrit (Bld) [Volume fraction]36.7 %Bqwcjv26.0-48.0The [facility] HospitalComment on above:Performed By: #### URCX #### [facility] [address] [place] [address] Dr. Ramses DumasHemoglobin (Bld) [Mass/Vol]12.3 g/yAYlmfwa29.0-16.0The [facility] HospitalComment on above:Performed By: #### URCX #### [facility] [address] [place] [address] Dr. Ramses Rowe #0.16 10e3/ulCritically high0.00-0.03[facility] Comment on above:Performed By: #### URCX #### [facility] [address] [place] [address] Dr. Ramses Rowe %1.1 %Critically high0.0-0.5The [facility] HospitalComment on above:Performed By: #### URCX #### [facility] [address] [place] [address] Dr. Ramses Ramos #4.6 103/ulCritically high1.2-3.8The [facility] Comment on above:Performed By: #### URCX #### [facility] [address] [place] [address] Dr. Ramses Bejaranohocytes/100 WBC (Bld)31.8 %Oebsrz98.5-60.0The [facility] HospitalComment on above:Performed By: #### URCX #### [facility] [address] [place] [address] Dr. Ramses Santos DIFF REQNONormalThe [facility] HospitalComment on above: Performed By: #### URCX #### [facility] [address] [place] [address] Dr. Ramses Parisi (RBC) [Entitic mass]26.9 uvLbgmig10.7-34.0The [facility] HospitalComment on above:Performed By: #### URCX #### [facility] [address] [place] [address] Dr. Ramses Parisi (RBC) [Mass/Vol]33.5 g/bPKnujch93.9-35.2The [facility] HospitalComment on above:Performed By: #### URCX #### [facility] [address] [place] [address] Dr. Ramses Parisi (RBC) [Entitic vol]80.3 fLCritically low81.0-99.0The [facility] HospitalComment on above:Performed By: #### URCX #### [facility] [address] [place] [address] Dr. Ramses Sharif #1.0 103/ulCritically high0.3-0.8The [facility] Comment on above:Performed By: #### URCX #### [facility] [address] [address] [address] Ramses Cunhaocytes/100 WBC (Bld)7.0 %Normal1.7-12.0The [facility] Comment on above:Performed By: #### URCX #### [facility] [address] [place] [address] Dr. Ramses GuallpaUT #8.2 103/ulCritically high1.4-6.5The [facility] Comment on above:Performed By: #### URCX #### [facility] [address] [place] [address] Dr. Ramses Guallpautrophils/100 WBC (Bld)57.3 %Onpkdi44.0-75.0The [facility] HospitalComment on above:Performed By: #### URCX #### [facility] [address] [place] [address] Dr. Ramses DumasPlatelet mean volume (Bld) [Entitic vol]8.6 fLCritically low 9.5-13.5The [facility] HospitalComment on above:Performed By: #### URCX #### [facility] [address] [place] [address] Dr. Ramses DumasPLT395 103/iyIewpeb375-710Mra [facility] HospitalComment on above: Performed By: #### URCX #### [facility] [address] [place] [address] Dr. Ramses DumasRBC4.57 106/ulNormal4.20-5.40The [facility] HospitalComment on above:Performed By: #### URCX #### [facility] [address] [place] [address] Dr. Ramses DumasWBC14.3 103/ulCritically high4.0-11.0The [facility] HospitalComment on above:Performed By: #### URCX #### [facility] [address] [place] [address] Dr. Pearce ChangER URINE PROFILEon [id number] Ql (U)NegativeNormal NEGATIVEThe [facility] HospitalComment on above:Performed By: #### URIC 24 #### [facility] [address] [place] [address] Dr. Ramses Mcintyrearity (U)CLEARNormalCLEARSt. Vincent HospitalComment on above: Performed By: #### URIC 24 #### [facility] [address] [place] [address] Dr. Ramses Vegalor (U)LT. YELLOWNormalYELLOWSt. Vincent HospitalComment on above:Performed By: #### URIC 24 #### [facility] [address] [place] [address] Dr. Ramses Lizarraga micrscopic examination will be performed if indicated. NormalThe [facility] HospitalComment on above:Performed By: #### URIC 24 #### [facility] [address] [place] [address] Dr. Ramses DumasGlucose Ql (U)NegativeNormalNEGATIVESt. Vincent HospitalComment on above:Performed By: #### URIC 24 #### [facility] [address] [place] [address] Dr. Ramses DumasHemoglobin Ql (U)LARGEAbnormalNEGLouis Stokes [facility] on above:Performed By: #### URIC 24 #### [facility] [address] [place] [address] Dr. Ramses DumasKetones Ql (U)NegativeNormalNEGATIVESt. Vincent HospitalComment on above:Performed By: #### URIC 24 #### [facility] [address] [place] [address] Dr. Ramses DumasLEUKOCYTESMODERATEAbnormalNEGATIVESt. Vincent HospitalComment on above:Performed By: #### URIC 24 #### [facility] [address] [place] [address] Dr. Ramses DumasNitrite Ql (U)NegativeNormalNEGATIVESt. Vincent HospitalComment on above:Performed By: #### URIC 24 #### [facility] [address] [place] [address] Dr. Ramses DumaspH (U)6.5 [pH]Normal5-9St. [facility] HospitalComment on above: Performed By: #### URIC 24 #### [facility] [address] [place] [address] Dr. Ramses DumasProtein (U) [Mass/Vol]100 mg/dLAbnormalNEGATIVE/ TRACEThe [facility] HospitalComment on above:Performed By: #### URIC 24 #### [facility] [address] [place] [address] Dr. Ramses DumasSPEC GRAVITY1.543Nneeji6.005-<=1.025The [facility] HospitalComment on above:Performed By: #### URIC 24 #### [facility] [address] [place] [address] Dr. Ramses Carrasco MICRO INDINDICATEDNormalThe [facility] HospitalComment on above: Performed By: #### URIC 24 #### [facility] [address] [place] [address] Dr. Ramses Adamsonbilinogen Qn (U)0.2 {Lucero'U}/dLNormal0.2 - 1.0The [facility] HospitalComment on above:Performed By: #### URIC 24 #### [facility] [address] [place] [address] Dr. Ramses DumasPROF 14(COMP METB)on [id number] [Mass/Vol]3.3 g/dL Critically low3.4-5.0The [facility] HospitalComment on above:Performed By: #### CMP #### [facility] [address] [place] [address] Dr. Ramses DumasAlbumin/Globulin [Mass ratio]0.8 {ratio}NormalThe [facility] HospitalComment on above:Performed By: #### CMP #### [facility] [address] [place] [address] Dr. Ramses Conteh [Catalytic activity/Vol]108 U/NXtihsb62-789Vzj [facility] HospitalComment on above:Performed By: #### CMP #### [facility] [address] [place] [address] Dr. Ramses Perez [Catalytic activity/Vol]103 U/LCritically rfxt67-21Mpi [facility] HospitalComment on above:Performed By: #### CMP #### [facility] [address] [address] [address] Ramses Matson gap [Moles/Vol]6.6 mmol/LNormalThe [facility] HospitalComment on above:Performed By: #### CMP #### [facility] [address] [address] [address] Ramses DumasAST [Catalytic activity/Vol]21 U/YZfcafh73-51Dua [facility] HospitalComment on above:Performed By: #### CMP #### [facility] [address] [address] [address] Ramses DumasBilirubin [Mass/Vol]0.2 mg/dLNormal0.2-1.0The [facility] Comment on above:Performed By: #### CMP #### [facility] [address] [address] [address] Ramses DumasCalcium [Mass/Vol]9.2 mg/dLNormal8.5-10.1The [facility] Comment on above:Performed By: #### CMP #### [facility] [address] [address] [address] Ramses DumasChloride [Moles/Vol]102 mmol/LHdvfim92-287Hjc [facility] Comment on above:Performed By: #### CMP #### [facility] [address] [address] [address] Ramses DumasCO2 [Moles/Vol]28.8 mmol/SQvaolv94.0-32.0The [facility] Comment on above:Performed By: #### CMP #### [facility] [address] [address] [address] Ramses DumasCreatinine [Mass/Vol]0.92 mg/dLNormal0.55-1.02The [facility] HospitalComment on above:Performed By: #### CMP #### [facility] [address] [address] [address] Pearce ChangEGFR-AF CHILEAN>60Normal>=60The [facility] HospitalComment on above:Performed By: #### CMP #### [facility] [address] [address] [address] Ramses PenaGFR-NON AF CHILEAN>60Normal>=60The [facility] HospitalComment on above:Performed By: #### CMP #### [facility] [address] [address] [address] Ramses DumasGlobulin (S) [Mass/Vol]4.1 g/dLNormalThAvita Health SystemComment on above:Performed By: #### CMP #### [facility] [address] [address] [address] Ramses DumasGlucose [Mass/Vol]114 mg/dLCritically lgei23-742Xco [facility] on above:Performed By: #### CMP #### [facility] [address] [address] [address] Ramses DumasPotassium [Moles/Vol]3.4 mmol/LCritically low3.5-5.1The [facility] HospitalComment on above:Performed By: #### CMP #### [facility] [address] [address] [address] Ramses DumasProtein [Mass/Vol]7.4 g/dLNormal6.4-8.2The [facility] Comment on above:Performed By: #### CMP #### [facility] [address] [address] [address] Ramses DumasSodium [Moles/Vol]134 mmol/LCritically wwq473-871Hxz [facility] Hospitalment on above:Performed By: #### CMP #### [facility] [address] [address] [address] Ramses DumasUrea nitrogen [Mass/Vol]11.0 mg/dLNormal7.0-18.0The [facility] Hospitalment on above:Performed By: #### CMP #### [facility] [address] [address] [address] Ramses DumasUrea nitrogen/Creatinine [Mass ratio]12.0 mg/mgNormalThe [facility] HospitalComment on above:Performed By: #### CMP #### [facility] [address] [place] [address] Dr. Ramses VARELA ONLYon [id number]KTQS SEENSt. Vincent HospitalCompine rest [facility] on above:Performed By: #### URIC 24 #### [facility] [address] [place] [address] Dr. Ramses Mendenhall identified Cx Nom (U)INDICATEDNoalThAvita Health SystemComment on above:Performed By: #### URIC 24 #### [facility] [address] [place] [address] Dr. Ramses Hays SEENNormalNONE SEENSt. Vincent HospitalCompine rest [facility] on above:Performed By: #### URIC 24 #### [facility] [address] [place] [address] Dr. Ramses Dominguez LM Nom (Urine sed)NONE SEENNormalNONE SEENSt. Vincent HospitalCompine rest [facility] on above:Performed By: #### URIC 24 #### [facility] [address] [place] [address] Dr. Pearce ChangEpithelial cells LM Ql (Urine sed)RARENormalNONE SEEN /RARESt. Vincent HospitalCompine rest [facility] mental [facility] services on above:Performed By: #### URIC 24 #### [facility] [address] [place] [address] Dr. Ramses RizzoCOUSNONE SEENNormalNONE SEENSt. Vincent HospitalCompine rest [facility] on above:Performed By: #### URIC 24 #### [facility] [address] [place] [address] Dr. Ramses BeeRpauoORT29-30Qyaneewb3-6RebBlanchard Valley Health [facility] on above: Performed By: #### URIC 24 #### [facility] [address] [place] [address] Dr. Ramses DumasWBC5-10AbnormalNONE SEENBlanchard Valley Health [facility] on above: Performed By: #### URIC 24 #### [facility] [address] [place] [address] Dr. Ramses Villaseñor BLOODon [id number] examination of blood, cultureCulture Observations: Pediatric bottle [...] Vancomycin 0.5 S F Tetracycline >=16 R FNOhioHealth Marion General HospitalComment on above:Performed By: #### BLDCX2 #### [facility] [address] [place] [address] Dr. Ramses DumasMicroscopic examination of blood, cultureCulture [...] Vancomycin 0.5 S F Tetracycline >=16 R FNOhioHealth Marion General HospitalComment on above:Performed By: #### CBC #### [facility] [address] [place] [address] Dr. Ramses Lemus AUTO DIFFon [id number] #0.0 103/ulNormal0.0-0.1St. Vincent HospitalComment on above:Performed By: #### CBC #### [facility] [address] [place] [address] Dr. Ramses DumasBasophils/100 WBC (Bld)0.1 %Critically low0.2-2.0The [facility] HospitalComment on above:Performed By: #### CBC #### [facility] [address] [place] [address] Dr. Ramses Hoskins #0.0 103/ulNormal0.0-0.7The [facility] HospitalComment on above: Performed By: #### CBC #### [facility] [address] [place] [address] Dr. Ramses Penaosinophils/100 WBC (Bld)0.0 %Critically low0.9-7.0The [facility] HospitalComment on above:Performed By: #### CBC #### [facility] [address] [place] [address] Dr. Ramses Irelandthrocyte distribution width (RBC) [Ratio]13.5 %Drmmko89.0-15.0 The [facility] HospitalComment on above:Performed By: #### CBC #### [facility] [address] [place] [address] Dr. Ramses DumasHematocrit (Bld) [Volume fraction]33.0 %Critically low36.0-48.0 The [facility] HospitalComment on above:Performed By: #### CBC #### [facility] [address] [place] [address] Dr. Ramses DumasHemoglobin (Bld) [Mass/Vol]10.7 g/dLCritically low12.0-16.0The [facility] HospitalComment on above:Performed By: #### CBC #### [facility] [address] [place] [address] Dr. Ramses Rowe #0.04 10e3/ulCritically high0.00-0.03The [facility] Comment on above:Performed By: #### CBC #### [facility] [address] [place] [address] Dr. Ramses Rowe %0.4 %Normal0.0-0.5The [facility] HospitalComment on above: Performed By: #### CBC #### [facility] [address] [place] [address] Dr. Ramses Ramos #0.8 103/ulCritically low1.2-3.8The [facility] Comment on above:Performed By: #### CBC #### [facility] [address] [place] [address] Dr. Ramses Phelpsmphocytes/100 WBC (Bld)7.9 %Critically low20.5-60.0The [facility] HospitalComment on above:Performed By: #### CBC #### [facility] [address] [place] [address] Dr. Ramses Santos DIFF REQNONormalThe [facility] HospitalComment on above: Performed By: #### CBC #### [facility] [address] [place] [address] Dr. Ramses Garcia (RBC) [Entitic mass]26.5 pgCritically low26.7-34.0The [facility] HospitalComment on above:Performed By: #### CBC #### [facility] [address] [place] [address] Dr. Ramses Parisi (RBC) [Mass/Vol]32.4 g/bNAjvoab50.9-35.2The [facility] HospitalComment on above:Performed By: #### CBC #### [facility] [address] [place] [address] Dr. Ramses Quinones (RBC) [Entitic vol]81.7 rPKycoxy28.0-99.0The [facility] HospitalComment on above:Performed By: #### CBC #### [facility] [address] [place] [address] Dr. Ramses Sharif #0.6 103/ulNormal0.3-0.8The [facility] HospitalComment on above:Performed By: #### CBC #### [facility] [address] [place] [address] Dr. Ramses Cunhaocytes/100 WBC (Bld)6.3 %Normal1.7-12.0[facility] Comment on above:Performed By: #### CBC #### [facility] [address] [address] [address] Ramses Silva #8.6 103/ulCritically high1.4-6.5The [facility] Comment on above:Performed By: #### CBC #### [facility] [address] [place] [address] Dr. Ramses Guallpautrophils/100 WBC (Bld)85.3 %Critically high43.0-75.0The [facility] HospitalComment on above:Performed By: #### CBC #### [facility] [address] [place] [address] Dr. Ramses DumasPlatelet mean volume (Bld) [Entitic vol]9.1 fLCritically low 9.5-13.5The [facility] HospitalComment on above:Performed By: #### CBC #### [facility] [address] [place] [address] Dr. Ramses DumasPLT248 103/yvBxguas191-347Vlk [facility] HospitalComment on above: Performed By: #### CBC #### [facility] [address] [place] [address] Dr. Ramses DumasRBC4.04 106/ulCritically low4.20-5.40The [facility] HospitalComment on above:Performed By: #### CBC #### [facility] [address] [place] [address] Dr. Ramses DmuasWBC10.1 103/ulNormal4.0-11.0The [facility] HospitalComment on above:Performed By: #### CBC #### [facility] [address] [place] [address] Dr. Ramses Villaseñor URINEon [id number] URINECulture Observations: Group B Strep called to [...] 0.5 S F Tetracycline >=16 R FNormalThe [facility] HospitalComment on above:Performed By: #### URCX #### [facility] [address] [place] [address] Dr. Ramses DumasPROGabbie 14(COMP METB)on [id number] [Mass/Vol]2.4 g/dL Critically low3.4-5.0The [facility] HospitalComment on above:Performed By: #### CVDTBH #### [facility] [address] [place] [address] Dr. Ramses DumasAlbumin/Globulin [Mass ratio]0.7 {ratio}NormalThe [facility] HospitalComment on above:Performed By: #### CVDTBH #### [facility] [address] [place] [address] Dr. Ramses Conteh [Catalytic activity/Vol]95 U/ZOkrqxd39-676Drc [facility] HospitalComment on above:Performed By: #### CVDTBH #### [facility] [address] [place] [address] Dr. Ramses Perez [Catalytic activity/Vol]327 U/LCritically eudd53-31Obt [facility] HospitalComment on above:Performed By: #### CVDTBH #### [facility] [address] [place] [address] Dr. Ramses Matson gap [Moles/Vol]8.7 mmol/LNormalThe [facility] HospitalComment on above:Performed By: #### CVDTBH #### [facility] [address] [place] [address] Dr. Ramses DumasAST [Catalytic activity/Vol]165 U/LCritically skvi14-71Dgn [facility] HospitalComment on above:Performed By: #### CVDTBH #### [facility] [address] [place] [address] Dr. Ramses DumasBilirubin [Mass/Vol]0.4 mg/dLNormal0.2-1.0The [facility] Comment on above:Performed By: #### CVDTBH #### [facility] [address] [address] [address] Ramses DumasCalcium [Mass/Vol]8.0 mg/dLCritically low8.5-10.1The [facility] HospitalComment on above:Performed By: #### CVDTBH #### [facility] [address] [address] [address] Ramses DumasChloride [Moles/Vol]108 mmol/LCritically gykl67-533Nbx [facility] HospitalComment on above:Performed By: #### CVDTBH #### [facility] [address] [place] [address] Dr. Ramses DumasCO2 [Moles/Vol]25.3 mmol/SLzfyze35.0-32.0The [facility] Comment on above:Performed By: #### CVDTBH #### [facility] [address] [place] [address] Dr. Ramses DumasCreatinine [Mass/Vol]0.70 mg/dLNormal0.55-1.02The [facility] HospitalComment on above:Performed By: #### CVDTBH #### [facility] [address] [place] [address] Dr. Ramses PenaGFR-AF CHILEAN>60Normal>=60The [facility] HospitalComment on above:Performed By: #### CVDTBH #### [facility] [address] [address] [address] Ramses PenaGFR-NON AF CHILEAN>60Normal>=60The [facility] HospitalComment on above:Performed By: #### CVDTBH #### [facility] [address] [address] [address] Ramses DumasGlobulin (S) [Mass/Vol]3.6 g/dLNormalThe [facility] HospitalComment on above:Performed By: #### CVDTBH #### [facility] [address] [place] [address] Dr. Ramses DumasGlucose [Mass/Vol]160 mg/dLCritically mvvm46-295Gee [facility] HospitalComment on above:Performed By: #### CVDTBH #### [facility] [address] [place] [address] Dr. Ramses DumasPotassium [Moles/Vol]4.0 mmol/LNormal3.5-5.1The [facility] Comment on above:Performed By: #### CVDTBH #### [facility] [address] [place] [address] Dr. Ramses DumasProtein [Mass/Vol]6.0 g/dLCritically low6.4-8.2The [facility] HospitalComment on above:Performed By: #### CVDTBH #### [facility] [address] [place] [address] Dr. Ramses Bejaranodium [Moles/Vol]138 mmol/TIoulaa971-438Okx [facility] Comment on above:Performed By: #### CVDTBH #### [facility] [address] [place] [address] Dr. Ramses DumasUrea nitrogen [Mass/Vol]6.0 mg/dLCritically low7.0-18.0The [facility] HospitalComment on above:Performed By: #### CVDTBH #### [facility] [address] [place] [address] Dr. Ramses Coronado nitrogen/Creatinine [Mass ratio]8.6 mg/mgNormalThe [facility] HospitalComment on above:Performed By: #### CVDTBH #### [facility] [address] [place] [address] Dr. Ramses Lemus AUTO DIFFon [id number] #0.0 103/ulNormal0.0-0.1St. [facility] HospitalComment on above:Performed By: #### URCX #### [facility] [address] [place] [address] Dr. Ramses DumasBashayyphils/100 WBC (Bld)0.2 %Normal0.2-2.0[facility] Comment on above:Performed By: #### URCX #### [facility] [address] [place] [address] Dr. Ramses Hoskins #0.0 103/ulNormal0.0-0.7The [facility] HospitalComment on above: Performed By: #### URCX #### [facility] [address] [place] [address] Dr. Ramses Penaosinophils/100 WBC (Bld)0.1 %Critically low0.9-7.0The [facility] HospitalComment on above:Performed By: #### URCX #### [facility] [address] [place] [address] Dr. Ramses Penarythrocyte distribution width (RBC) [Ratio]13.4 %Luoist44.0-15.0 The [facility] HospitalComment on above:Performed By: #### URCX #### [facility] [address] [place] [address] Dr. Ramses DumasHematocrit (Bld) [Volume fraction]34.1 %Critically low36.0-48.0 The [facility] HospitalComment on above:Performed By: #### URCX #### [facility] [address] [place] [address] Dr. Ramses DumasHemoglobin (Bld) [Mass/Vol]10.9 g/dLCritically low12.0-16.0The [facility] HospitalComment on above:Performed By: #### URCX #### [facility] [address] [place] [address] Dr. Ramses Rowe #0.02 10e3/ulNormal0.00-0.03The [facility] HospitalComment on above:Performed By: #### URCX #### [facility] [address] [place] [address] Dr. Ramses Rowe %0.2 %Normal0.0-0.5The [facility] HospitalComment on above: Performed By: #### URCX #### [facility] [address] [place] [address] Dr. Ramses Ramos #0.7 103/ulCritically low1.2-3.8The [facility] Comment on above:Performed By: #### URCX #### [facility] [address] [place] [address] Dr. Ramses Phelpsmphocytes/100 WBC (Bld)6.9 %Critically low20.5-60.0The [facility] HospitalComment on above:Performed By: #### URCX #### [facility] [address] [place] [address] Dr. Ramses Santos DIFF REQNONormalThe [facility] HospitalComment on above: Performed By: #### URCX #### [facility] [address] [place] [address] Dr. Ramses Parisi (RBC) [Entitic mass]26.1 pgCritically low26.7-34.0The [facility] HospitalComment on above:Performed By: #### URCX #### [facility] [address] [place] [address] Dr. Ramses Parisi (RBC) [Mass/Vol]32.0 g/uMZmspaj69.9-35.2The [facility] HospitalComment on above:Performed By: #### URCX #### [facility] [address] [place] [address] Dr. Ramses Quinones (RBC) [Entitic vol]81.8 kBOslxcu98.0-99.0The [facility] HospitalComment on above:Performed By: #### URCX #### [facility] [address] [place] [address] Dr. Ramses Sharif #0.6 103/ulNormal0.3-0.8The [facility] HospitalComment on above:Performed By: #### URCX #### [facility] [address] [place] [address] Dr. Ramses Cunhaocytes/100 WBC (Bld)5.9 %Normal1.7-12.0The [facility] Comment on above:Performed By: #### URCX #### [facility] [address] [place] [address] Dr. Ramses Silva #8.2 103/ulCritically high1.4-6.5The [facility] Comment on above:Performed By: #### URCX #### [facility] [address] [place] [address] Dr. Ramses Guallpautrophils/100 WBC (Bld)86.7 %Critically high43.0-75.0The [facility] HospitalComment on above:Performed By: #### URCX #### [facility] [address] [place] [address] Dr. Ramses DumasPlatelet mean volume (Bld) [Entitic vol]9.4 fLCritically low 9.5-13.5The [facility] HospitalComment on above:Performed By: #### URCX #### [facility] [address] [place] [address] Dr. Ramses DumasPLT235 103/kbKihbrf778-595Yqh [facility] HospitalComment on above: Performed By: #### URCX #### [facility] [address] [place] [address] Dr. Ramses DumasRBC4.17 106/ulCritically low4.20-5.40The [facility] HospitalComment on above:Performed By: #### URCX #### [facility] [address] [place] [address] Dr. Ramses DumasWBC9.5 103/ulNormal4.0-11.0The [facility] HospitalComment on above: Performed By: #### URCX #### [facility] [address] [place] [address] Dr. Ramses Schmid 14(COMP METB)on [id number] [Mass/Vol]2.6 g/dL Critically low3.4-5.0The [facility] HospitalComment on above:Performed By: #### URIC 24 #### [facility] [address] [place] [address] Dr. Ramses DumasAlbumin/Globulin [Mass ratio]0.8 {ratio}NormalThe [facility] HospitalComment on above:Performed By: #### URIC 24 #### [facility] [address] [address] [address] Ramses WinklerP [Catalytic activity/Vol]82 U/LHlmjan56-635Wmt [facility] HospitalComment on above:Performed By: #### URIC 24 #### [facility] [address] [address] [address] Ramses WinklerT [Catalytic activity/Vol]257 U/LCritically wrma62-85Zvm [facility] HospitalComment on above:Performed By: #### URIC 24 #### [facility] [address] [address] [address] Ramses Mooreon gap [Moles/Vol]10.3 mmol/LNormalThe [facility] Comment on above:Performed By: #### URIC 24 #### [facility] [address] [place] [address] Dr. Ramses DumasAST [Catalytic activity/Vol]196 U/LCritically kbpo36-31Rko [facility] HospitalComment on above:Performed By: #### URIC 24 #### [facility] [address] [place] [address] Dr. Ramses DumasBilirubin [Mass/Vol]0.5 mg/dLNormal0.2-1.0[facility] Comment on above:Performed By: #### URIC 24 #### [facility] [address] [place] [address] Dr. Ramses DumasCalcium [Mass/Vol]7.8 mg/dLCritically low8.5-10.1The [facility] HospitalComment on above:Performed By: #### URIC 24 #### [facility] [address] [place] [address] Dr. Ramses DumasChloride [Moles/Vol]104 mmol/OXbzbbk22-802Xrp [facility] Comment on above:Performed By: #### URIC 24 #### [facility] [address] [address] [address] Ramses DumasCO2 [Moles/Vol]24.4 mmol/NUvqnje28.0-32.0The [facility] Comment on above:Performed By: #### URIC 24 #### [facility] [address] [address] [address] Ramses DumasCreatinine [Mass/Vol]1.09 mg/dLCritically high0.55-1.02The [facility] HospitalComment on above:Performed By: #### URIC 24 #### [facility] [address] [address] [address] Pearce ChangEGFR-AF CHILEAN>60Normal>=60The [facility] HospitalComment on above:Performed By: #### URIC 24 #### [facility] [address] [address] [address] Ramess PenaGFR-NON AF [id number] mL/min/1.10z8Gacronchlx low>=60The [facility] HospitalComment on above:Performed By: #### URIC 24 #### [facility] [address] [place] [address] Dr. Ramses DumasGlobulin (S) [Mass/Vol]3.3 g/dLNormalThe [facility] HospitalComment on above:Performed By: #### URIC 24 #### [facility] [address] [place] [address] Dr. Ramses DumasGlucose [Mass/Vol]143 mg/dLCritically obdi00-961Jye [facility] HospitalComment on above:Performed By: #### URIC 24 #### [facility] [address] [place] [address] Dr. Ramses DumasPotassium [Moles/Vol]3.7 mmol/LNormal3.5-5.1The [facility] Comment on above:Performed By: #### URIC 24 #### [facility] [address] [place] [address] Dr. Ramses DumasProtein [Mass/Vol]5.9 g/dLCritically low6.4-8.2The [facility] HospitalComment on above:Performed By: #### URIC 24 #### [facility] [address] [place] [address] Dr. Ramses DumasSodium [Moles/Vol]135 mmol/LCritically zcb745-303Lgd [facility] HospitalComment on above:Performed By: #### URIC 24 #### [facility] [address] [place] [address] Dr. Ramses Coronado nitrogen [Mass/Vol]10.0 mg/dLNormal7.0-18.0The [facility] HospitalComment on above:Performed By: #### URIC 24 #### [facility] [address] [place] [address] Dr. Ramses Coronado nitrogen/Creatinine [Mass ratio]9.2 mg/mgNoGood Samaritan HospitalComment on above:Performed By: #### URIC 24 #### [facility] [address] [place] [address] Dr. Ramses Fulton CULTURE ID PANELon 08-22-2022. baumanniiNot detectedNormal NOT DETECTEDThe [facility] HospitalComment on above:Performed By: #### CVDTBH #### [facility] [address] [place] [address] Dr. Ramses Abel fragilisNot detectedNormalNOT DETECTEDThe [facility] HospitalComment on above:Performed By: #### CVDTBH #### [facility] [address] [place] [address] Dr. Ramses Arndt CONTROLSPASSEDSelect Medical Specialty Hospital - YoungstownComment on above: Performed By: #### CVDTBH #### [facility] [address] [place] [address] Dr. Ramses ArndtBTHDYANA CULTURE BOTTLE INFORMATIONNoGood Samaritan HospitalComment on above:Performed By: #### CVDTBH #### [facility] [address] [place] [address] Dr. Ramses ArndtVgbedMGFIGI4ACLWZWCKFQCXS RESISTANCE GENESSelect Medical Specialty Hospital - [place] Comment on above:Performed By: #### CVDTBH #### [facility] [address] [place] [address] Dr. Ramses ArndtHD2SEE BELOWSelect Medical Specialty Hospital - YoungstownComment on above: Result Comment: Note: Antimicrobial resitance can occur via multiple mechanisms. A Not Detected result for the [employer] antomicrobial resistance gene assays does not indicate antimicrobial susceptibility. Subculturing is required for species identification and susceptibility testing of isolates.Performed By: #### CVDTBH #### [facility] [address] [place] [address] Dr. Ramses ArndtDmrjhRQDVZQ9VdjwbhkbUrqacbKcs [facility] HospitalComment on above: Performed By: #### CVDTBH #### [facility] [address] [place] [address] Dr. Ramses ArndtTqjmgHSKGMT0TkzkxzujInqbotAii [facility] HospitalComment on above: Performed By: #### CVDTBH #### [facility] [address] [place] [address] Dr. Ramses ArndtEwkteQZHBCA0DEAJGRogxctYikSelect Medical Specialty Hospital - YoungstownComment on above:Performed By: #### CVDTBH #### [facility] [address] [place] [address] Dr. Ramses Weinstein Set:Set 1NormalThe [facility] HospitalComment on above: Performed By: #### CVDTBH #### [facility] [address] [place] [address] Dr. Ramses Weinstein:PediatricSelect Medical Specialty Hospital - YoungstownComment on above: Performed By: #### CVDTBH #### [facility] [address] [place] [address] Dr. Ramses Coreas. neoformans/gattiiNot detectedNormalNOT DETECTEDThe [facility] HospitalComment on above:Performed By: #### CVDTBH #### [facility] [address] [place] [address] Dr. Ramses Arredondo albicansNot detectedNormalNOT DETECTEDThe [facility] HospitalComment on above:Performed By: #### CVDTBH #### [facility] [address] [place] [address] Dr. Ramses Arredondo aurisNot detectedNormalNOT DETECTEDThe [facility] on above:Performed By: #### CVDTBH #### [facility] [address] [place] [address] Dr. Ramses Arredondo glabrataNot detectedNormalNOT DETECTEDThe [facility] HospitalComment on above:Performed By: #### CVDTBH #### [facility] [address] [address] [address] Ramses Arredondo KruseiNot detectedNormalNOT DETECTEDThe [facility] Comment on above:Performed By: #### CVDTBH #### [facility] [address] [address] [address] Ramses Arredondo ParapsilosisNot detectedNormalNOT DETECTEDThe [facility] HospitalComment on above:Performed By: #### CVDTBH #### [facility] [address] [address] [address] Ramses Arredondo TropicalisNot detectedNormalNOT DETECTEDThe [facility] HospitalComment on above:Performed By: #### CVDTBH #### [facility] [address] [address] [address] Ramses DumasCTX-M Resistant GeneNot ApplicableNormalNOT DETECTEDThe [facility] HospitalComment on above:Performed By: #### CVDTBH #### [facility] [address] [address] [address] Ramses Pena. Cloacae complexNot detectedNormalNOT DETECTEDThe [facility] HospitalCompine rest [facility] on above:Performed By: #### CVDTBH #### [facility] [address] [address] [address] Ramses Pena. faecalisNot detectedNormalNOT DETECTEDSt. [facility] Comment on above:Performed By: #### CVDTBH #### [facility] [address] [address] [address] Ramses Pena. faeciumNot detectedNormalNOT DETECTEDSt. [facility] Comment on above:Performed By: #### CVDTBH #### [facility] [address] [address] [address] Ramses PenanterobacteriaceaeNot detectedNormalNOT DETECTEDThe [facility] HospitalComment on above:Performed By: #### CVDTBH #### [facility] [address] [address] [address] Ramses Reyescherichia coliNot detectedNormalNOT DETECTEDThe [facility] HospitalComment on above:Performed By: #### CVDTBH #### [facility] [address] [address] [address] Ramses Cat. influenzaeNot detectedNormalNOT DETECTEDThe [facility] Comment on above:Performed By: #### CVDTBH #### [facility] [address] [address] [address] Ramses Hale Resistant GeneNot ApplicableNormalNOT DETECTEDThe [facility] HospitalComment on above:Performed By: #### CVDTBH #### [facility] [address] [address] [address] Ramses Farr. oxytocaNot detectedNormalNOT DETECTEDThe [facility] Comment on above:Performed By: #### CVDTBH #### [facility] [address] [address] [address] Ramses Farr. pneumoniaeNot detectedNormalNOT DETECTEDThe [facility] Comment on above:Performed By: #### CVDTBH #### [facility] [address] [address] [address] Ramses Mensahella aerogenesNot detectedNormalNOT DETECTEDThe [facility] HospitalComment on above:Performed By: #### CVDTBH #### [facility] [address] [address] [address] Ramses DumasKPC Resistant GeneNot detectedNormalNOT DETECTEDThe [facility] HospitalCompine rest [facility] on above:Performed By: #### CVDTBH #### [facility] [address] [address] [address] Ramses Conn. monocytogenesNot detectedNormalNOT DETECTEDThe [facility] HospitalComment on above:Performed By: #### CVDTBH #### [facility] [address] [address] [address] Ramses DumasMcr-1 Resistant GeneNot ApplicableNormalNOT DETECTEDThe [facility] HospitalComp[facility] on above:Performed By: #### CVDTBH #### [facility] [address] [address] [address] Ramses VinesA/CNot ApplicableNormalNOT DETECTEDThe [facility] Comment on above:Performed By: #### CVDTBH #### [facility] [address] [address] [address] Ramses Casillas/C MREJNot ApplicableNormalNOT DETECTEDThe [facility] Comment on above:Performed By: #### CVDTBH #### [facility] [address] [address] [address] Ramses Dow meningitidisNot detectedNormalNOT DETECTEDThe [facility] HospitalComment on above:Performed By: #### CVDTBH #### [facility] [address] [address] [address] Ramses [place] Resistant GeneNot ApplicableNormalNOT DETECTEDThe [facility] HospitalComment on above:Performed By: #### CVDTBH #### [facility] [address] [address] [address] Ramses DumasOwfhnFho-86-ongkAgx ApplicableNormalNOT DETECTEDThe [facility] Comment on above:Performed By: #### CVDTBH #### [facility] [address] [address] [address] Ramses DumasProteusNot detectedNormalNOT DETECTEDThe [facility] HospitalComment on above:Performed By: #### CVDTBH #### [facility] [address] [address] [address] Ramses Cody. aeruginosaNot detectedNormalNOT DETECTEDThe [facility] HospitalComment on above:Performed By: #### CVDTBH #### [facility] [address] [address] [address] Ramses Gutierres. maltophiliaNot detectedNormalNOT DETECTEDSt. [facility] Comment on above:Performed By: #### CVDTBH #### [facility] [address] [address] [address] Ramses DumasSalmonellaNot detectedNormalNOT DETECTEDThe [facility] Comment on above:Performed By: #### CVDTBH #### [facility] [address] [address] [address] Ramses Salmeronatia marcescensNot detectedNormalNOT DETECTEDThe [facility] HospitalComment on above:Performed By: #### CVDTBH #### [facility] [address] [address] [address] Ramses Williamson:unknown/not givenNormalThe [facility] HospitalComment on above:Performed By: #### CVDTBH #### [facility] [address] [address] [address] Ramses Bruno. aureusNot detectedNormalNOT DETECTEDThe [facility] Comment on above:Performed By: #### CVDTBH #### [facility] [address] [address] [address] Ramses Bruno. epidermidisNot detectedNormalNOT DETECTEDThe [facility] HospitalComp[facility] on above:Performed By: #### CVDTBH #### [facility] [address] [address] [address] Ramses rBuno. lugdunensisNot detectedNormalNOT DETECTEDThe [facility] HospitalComment on above:Performed By: #### CVDTBH #### [facility] [address] [address] [address] Ramses DavisococcusNot detectedNormalNOT DETECTEDThe [facility] Comment on above:Performed By: #### CVDTBH #### [facility] [address] [address] [address] Ramses Mendoza. agalactiaeDetectedCritically abnormalNOT DETECTEDThe [facility] HospitalComp[facility] on above:Performed By: #### CVDTBH #### [facility] [address] [address] [address] Ramses Mendoza. pneumoniaeNot detectedNormalNOT DETECTEDThe [facility] HospitalComp[facility] on above:Performed By: #### CVDTBH #### [facility] [address] [address] [address] Ramses Navarrete pyogenesNot detectedNormalNOT DETECTEDThe [facility] HospitalComp[facility] on above:Performed By: #### CVDTBH #### [facility] [address] [address] [address] Yilan ChangStreptococcusDetectedCritically abnormalNOT DETECTEDThe [facility] HospitalComment on above:Performed By: #### CVDTBH #### [facility] [address] [place] [address] Dr. Ramses Sterling/Ross Cortes. GeneNot detectedNormalNOT DETECTEDThe [facility] HospitalComment on above:Performed By: #### CVDTBH #### [facility] [address] [place] [address] Dr. Ramses Yang Resistant GeneNot ApplicableNormalNOT DETECTEDThe [facility] HospitalComment on above:Performed By: #### CVDTBH #### [facility] [address] [place] [address] Dr. Ramses Lemus AUTO DIFFon [id number] #0.1 103/ulNormal0.0-0.1The [facility] HospitalComment on above:Performed By: #### URIC 24 #### [facility] [address] [place] [address] Dr. Ramses Ocasiosophils/100 WBC (Bld)0.7 %Normal0.2-2.0The [facility] Comment on above:Performed By: #### URIC 24 #### [facility] [address] [place] [address] Dr. Ramses Hoskins #0.1 103/ulNormal0.0-0.7The [facility] HospitalComment on above: Performed By: #### URIC 24 #### [facility] [address] [place] [address] Dr. Ramses Penaosinophils/100 WBC (Bld)1.7 %Normal0.9-7.0The [facility] Comment on above:Performed By: #### URIC 24 #### [facility] [address] [place] [address] Dr. Ramses Penarythrocyte distribution width (RBC) [Ratio]13.2 %Xnmqvo67.0-15.0 The [facility] HospitalComment on above:Performed By: #### URIC 24 #### [facility] [address] [place] [address] Dr. Ramses Leeatocrit (Bld) [Volume fraction]39.8 %Fgatdz17.0-48.0The [facility] HospitalComment on above:Performed By: #### URIC 24 #### [facility] [address] [place] [address] Dr. Ramses DumasHemoglobin (Bld) [Mass/Vol]12.9 g/uCBfizqq32.0-16.0The [facility] HospitalComment on above:Performed By: #### URIC 24 #### [facility] [address] [place] [address] Dr. Ramses Rowe #0.02 10e3/ulNormal0.00-0.03The [facility] HospitalComment on above:Performed By: #### URIC 24 #### [facility] [address] [place] [address] Dr. Ramses Rowe %0.2 %Normal0.0-0.5The [facility] HospitalComment on above: Performed By: #### URIC 24 #### [facility] [address] [place] [address] Dr. Ramses Ramos #3.2 103/ulNormal1.2-3.8The [facility] HospitalComment on above:Performed By: #### URIC 24 #### [facility] [address] [place] [address] Dr. Ramses Phelpsmphocytes/100 WBC (Bld)40.0 %Eoqjpa70.5-60.0The [facility] HospitalComment on above:Performed By: #### URIC 24 #### [facility] [address] [place] [address] Dr. Ramses HenriquezUAL DIFF REQNONormalThe [facility] HospitalComment on above: Performed By: #### URIC 24 #### [facility] [address] [place] [address] Dr. Ramses Garcia (RBC) [Entitic mass]26.6 pgCritically low26.7-34.0The [facility] HospitalComment on above:Performed By: #### URIC 24 #### [facility] [address] [place] [address] Dr. Ramses ParisiHC (RBC) [Mass/Vol]32.4 g/rZHecnkj88.9-35.2The [facility] HospitalComment on above:Performed By: #### URIC 24 #### [facility] [address] [place] [address] Dr. Ramses ParisiV (RBC) [Entitic vol]82.1 bCOkutes98.0-99.0The [facility] HospitalComment on above:Performed By: #### URIC 24 #### [facility] [address] [place] [address] Dr. Ramses Sharif #0.6 103/ulNormal0.3-0.8The [facility] HospitalComment on above:Performed By: #### URIC 24 #### [facility] [address] [place] [address] Dr. Ramses Cunhaocytes/100 WBC (Bld)7.5 %Normal1.7-12.0The [facility] Comment on above:Performed By: #### URIC 24 #### [facility] [address] [place] [address] Dr. Ramses Silva #4.0 103/ulNormal1.4-6.5The [facility] HospitalComment on above:Performed By: #### URIC 24 #### [facility] [address] [place] [address] Dr. Ramses Guallpautrophils/100 WBC (Bld)49.9 %Zmrqav70.0-75.0The [facility] HospitalComment on above:Performed By: #### URIC 24 #### [facility] [address] [place] [address] Dr. Ramses Whaleylet mean volume (Bld) [Entitic vol]9.3 fLCritically low 9.5-13.5The [facility] HospitalComment on above:Performed By: #### URIC 24 #### [facility] [address] [place] [address] Dr. Ramses DumasPLT354 103/dvMtxqzy870-968Wks [facility] HospitalComment on above: Performed By: #### URIC 24 #### [facility] [address], [place] [address] Dr. Ramses DumasRBC4.85 106/ulNormal4.20-5.40The [facility] HospitalCompine rest [facility] on above:Performed By: #### URIC 24 #### [facility] [address], [place] [address] Dr. Ramses DumasWBC8.1 103/ulNormal4.0-11.0The [facility] HospitalCompine rest [facility] on above: Performed By: #### URIC 24 #### [facility] [address], [place] [address] Dr. Ramses DumasCT ABD/PELVIS WO CONon [id number] ABD/PELVIS WO CONEXAM: CT ABD/PELVIS WO CON [...] Electronically authenticated by: KESHIA IRIZARRY Date: 2022-08-22 07:04[facility]Cov[facility] (CVDTB)on [id number]-CoV-2 (COVID-19) RNA FRANCESCA+probe Ql (Unsp spec)Not detectedNormalNOT DETECTEDSt. [facility] Comment on above:Result Comment: When diagnostic [...] for this test is supported by the [place] [employer] and Human Service's declaration that [...] longer be used).Performed By: #### CMP #### [facility] [address] [place] [address] Dr. Ramses Kay URINE PROFILEon [id number] Ql (U)NegativeNormal NEGATIVESt. Vincent HospitalComment on above:Performed By: #### URCX #### [facility] [address] [place] [address] Dr. Ramses Stafford (U)CLEARNormalCLEARSt. Vincent HospitalComment on above: Performed By: #### URCX #### [facility] [address] [place] [address] Dr. Ramses Francis (U)LT. YELLOWNormalYELLOWSt. Vincent HospitalComment on above:Performed By: #### URCX #### [facility] [address] [place] [address] Dr. Ramses Lizarraga micrscopic examination will be performed if indicated. NormalSt. Vincent HospitalComment on above:Performed By: #### URCX #### [facility] [address] [place] [address] Dr. Yilan ChangGlucose Ql (U)NegativeNormalNEGATIVESt. Vincent HospitalComment on above:Performed By: #### URCX #### [facility] [address] [place] [address] Dr. Ramses DumasHemoglobin Ql (U)SMALLAbnormalNEGATIVEDelaware County Hospital on above:Performed By: #### URCX #### [facility] [address] [place] [address] Dr. Ramses DumasKetones Ql (U)NegativeNormalNEGATIVESt. Vincent HospitalComment on above:Performed By: #### URCX #### [facility] [address] [place] [address] Dr. Ramses DumasLEUKOCYTESSMALLAbnormalNEGATIVESt. Vincent HospitalComment on above:Performed By: #### URCX #### [facility] [address] [place] [address] Dr. Ramses DumasNitrite Ql (U)NegativeNormalNEGATIVESt. Vincent HospitalComment on above:Performed By: #### URCX #### [facility] [address] [place] [address] Dr. Ramses DumaspH (U)7.0 [pH]Normal5-9St. [facility] HospitalComment on above: Performed By: #### URCX #### [facility] [address] [place] [address] Dr. Ramses DumasProtein (U) [Mass/Vol]30 mg/dLAbnormalNEGATIVE/ TRACEThe [facility] HospitalComment on above:Performed By: #### URCX #### [facility] [address] [place] [address] Dr. Ramses DumasSPEC GRAVITY1.938Pnlgpn1.005-<=1.025The [facility] HospitalCompine rest [facility] on above:Performed By: #### URCX #### [facility] [address] [place] [address] Dr. Ramses DumasUR MICRO INDINDICATEDNormalThe [facility] HospitalComment on above: Performed By: #### URCX #### [facility] [address] [place] [address] Dr. Ramses Adamsonbilinogen Qn (U)0.2 {Lucero'U}/dLNormal0.2 - 1.0The [facility] HospitalComment on above:Performed By: #### URCX #### [facility] [address] [place] [address] Dr. Ramses DumasLACTATE/LACTIC ACIDon 83-22-7891Jxqcalp [Moles/Vol]2.3 mmol/L Critically high0.4-1.9The [facility] HospitalComment on above:Performed By: #### URCX #### [facility] [address] [place] [address] Dr. Ramses DumasPREGNANCY URon [id number], QUALNegativeNormalNEGATIVEThe [facility] HospitalComment on above:Performed By: #### URCX #### [facility] [address] [place] [address] Dr. Ramses DumasPROF 14(COMP METB)on 12-71-4081Cgfunar [Mass/Vol]3.5 g/dLNormal 3.4-5.0The [facility] HospitalComment on above:Performed By: #### URCX #### [facility] [address] [place] [address] Dr. Ramses DumasAlbumin/Globulin [Mass ratio]0.9 {ratio}NormalThe [facility] HospitalComment on above:Performed By: #### URCX #### [facility] [address] [place] [address] Dr. Ramses Conteh [Catalytic activity/Vol]92 U/UHfwsst54-904Qlw [facility] HospitalComment on above:Performed By: #### URCX #### [facility] [address] [place] [address] Dr. Ramses Perez [Catalytic activity/Vol]139 U/LCritically ezaa85-37Uzn [facility] HospitalComment on above:Performed By: #### URCX #### [facility] [address] [place] [address] [address] Ramses DumasAnion gap [Moles/Vol]10.2 mmol/LNormalSt. [facility] Hospital Comment on above:Performed By: #### URCX #### [facility] [address] [place] [address] [address] Ramses DumasAST [Catalytic activity/Vol]112 U/LCritically sndx88-98Zhf [facility] HospitalComment on above:Performed By: #### URCX #### [facility] [address] [place] [address] Dr. Ramses DumasBilirubin [Mass/Vol]0.2 mg/dLNormal0.2-1.0[facility] Comment on above:Performed By: #### URCX #### [facility] [address] [place] [address] Dr. Ramses DumasCalcium [Mass/Vol]8.8 mg/dLNormal8.5-10.1[facility] Comment on above:Performed By: #### URCX #### [facility] [address] [place] [address] Dr. Ramses DumasChloride [Moles/Vol]105 mmol/GLjmumq54-174VxkSt. [facility] Hospital Comment on above:Performed By: #### URCX #### [facility] [address] [place] [address] Dr. Ramses DumasCO2 [Moles/Vol]26.3 mmol/IDrsjrz49.0-32.0The [facility] Comment on above:Performed By: #### URCX #### [facility] [address] [place] [address] Dr. Ramses DumasCreatinine [Mass/Vol]0.95 mg/dLNormal0.55-1.02The [facility] HospitalComment on above:Performed By: #### URCX #### [facility] [address] [place] [address] [address] Pearce ChangEGFR-AF CHILEAN>60Normal>=60The [facility] HospitalComment on above:Performed By: #### URCX #### [facility] [address] [address] [address] Ramses PenaGFR-NON AF CHILEAN>60Normal>=60The [facility] HospitalComment on above:Performed By: #### URCX #### [facility] [address] [address] [address] Ramses DumasGlobulin (S) [Mass/Vol]3.9 g/dLNormalThAvita Health SystemComment on above:Performed By: #### URCX #### [facility] [address] [address] [address] Ramses DumasGlucose [Mass/Vol]137 mg/dLCritically vvyo21-999Jvw [facility] HospitalComment on above:Performed By: #### URCX #### [facility] [address] [address] [address] Ramses DumasPotassium [Moles/Vol]3.5 mmol/LNormal3.5-5.1The [facility] Comment on above:Performed By: #### URCX #### [facility] [address] [address] [address] Ramses DumasProtein [Mass/Vol]7.4 g/dLNormal6.4-8.2The [facility] Comment on above:Performed By: #### URCX #### [facility] [address] [address] [address] Ramses DumasSodium [Moles/Vol]138 mmol/ERinaci979-967Byn [facility] Comment on above:Performed By: #### URCX #### [facility] [address] [address] [address] Ramses DumasUrea nitrogen [Mass/Vol]11.0 mg/dLNormal7.0-18.0The [facility] HospitalComment on above:Performed By: #### URCX #### [facility] [address] [address] [address] Ramses DumasUrea nitrogen/Creatinine [Mass ratio]11.6 mg/mgNormalThe [facility] HospitalComment on above:Performed By: #### URCX #### [facility] [address] [address] [address] Ramses Olsen MICROSCOPIC ONLYon [id number]W SEEN [facility] on above:Performed By: #### URCX #### [facility] [address] [address] [address] Ramses Mendenhall identified Cx Nom (U)CX ALREADY ORDEREDNoOhioHealth Dublin [facility] on above:Performed By: #### URCX #### [facility] [address] [place] [address] Dr. Ramses DumasCASTBLAKEE SEENNormalNONE SEENBlanchard [facility] on above:Performed By: #### URCX #### [facility] [address] [place] [address] Dr. Ramses Ahnystals LM Nom (Urine sed)NONE SEENNormalNONE SEENBlanchard [facility] on above:Performed By: #### URCX #### [facility] [address] [place] [address] Dr. Pearce ChangEpithelial cells LM Ql (Urine sed)MANYAbnormalNONE SEEN /RAREBlanchard Valley Health System [facility] on above:Performed By: #### URCX #### [facility] [address] [place] [address] Dr. Ramses RizzoCOUSBLAKEE SEENNormalNONE SEENBlanchard [facility] on above:Performed By: #### URCX #### [facility] [address] [place] [address] Dr. Ramses DumasFxlgrYVJ2-65Hvbzjjse4-3MeeBlanchard Valley [facility] System [facility] on above:Performed By: #### URCX #### [facility] [address] [place] [address] Dr. Ramses DumasUyqhbQLC44-83YvdqfrhhLIQA SEENBlanchard Valley [facility] on above: Performed By: #### URCX #### [facility] [address] [place] [address] Dr. Ramses Villaseñor URINEon [id number] URINEIsolate 1 Streptococcus agalactiae >100,000 cfu/mL of ORGANISM 1 Streptococcus agalactiae ANTIBIOTIC M.I.C RX STATUS Benzylpenicillin <=0.06 S F Ampicillin <=0.25 S F Cefotaxime <=0.12 S F Ceftriaxone <=0.12 S F Levofloxacin 0.5 S F Erythromycin >=8 R F Clindamycin >=1 R F Linezolid <=2 S F Vancomycin 0.5 S F Tetracycline >=16 R FNormalThe [facility] HospitalComment on above:Performed By: #### URCX #### [facility] [address] [place] [address] Dr. Ramses DumasACETAMINOPHENon 08-39-2910Mxxgcuqqgxkhd [Mass/Vol]ug/mLCritically low10.0-30.0The [facility] HospitalComment on above:Performed By: #### URCX #### [facility] [address] [place] [address] Dr. Ramses Lemus AUTO DIFFon [id number] #0.1 103/ulNormal0.0-0.1St. [facility] HospitalComment on above:Performed By: #### CVDTBH #### [facility] [address] [place] [address] Dr. Ramses DumasBasophils/100 WBC (Bld)0.8 %Normal0.2-2.0[facility] Comment on above:Performed By: #### CVDTBH #### [facility] [address] [place] [address] Dr. Ramses Hoskins #0.1 103/ulNormal0.0-0.7The [facility] HospitalComment on above: Performed By: #### CVDTBH #### [facility] [address] [place] [address] Dr. Ramses Penaosinophils/100 WBC (Bld)1.6 %Normal0.9-7.0[facility] Comment on above:Performed By: #### CVDTBH #### [facility] [address] [place] [address] Dr. Ramses Penarythrocyte distribution width (RBC) [Ratio]13.3 %Hykuvx94.0-15.0 The [facility] HospitalComment on above:Performed By: #### CVDTBH #### [facility] [address] [place] [address] Dr. Ramses DumasHematocrit (Bld) [Volume fraction]40.6 %Uzybfm95.0-48.0The [facility] HospitalComment on above:Performed By: #### CVDTBH #### [facility] [address] [place] [address] Dr. Ramses DumasHemoglobin (Bld) [Mass/Vol]13.2 g/nOQosvfo42.0-16.0The [facility] HospitalComment on above:Performed By: #### CVDTBH #### [facility] [address] [place] [address] Dr. Ramses Rowe #0.01 10e3/ulNormal0.00-0.03The [facility] HospitalComment on above:Performed By: #### CVDTBH #### [facility] [address] [place] [address] Dr. Ramses Rowe %0.2 %Normal0.0-0.5The [facility] HospitalComment on above: Performed By: #### CVDTBH #### [facility] [address] [place] [address] Dr. Ramses BejaranoH #2.4 103/ulNormal1.2-3.8The [facility] HospitalComment on above:Performed By: #### CVDTBH #### [facility] [address] [place] [address] Dr. Ramses Phelpsmphocytes/100 WBC (Bld)37.7 %Ysvoez76.5-60.0The [facility] HospitalComment on above:Performed By: #### CVDTBH #### [facility] [address] [place] [address] Dr. Ramses HenriquezUAL DIFF REQNONormalThe [facility] HospitalComment on above: Performed By: #### CVDTBH #### [facility] [address] [place] [address] Dr. Ramses Parisi (RBC) [Entitic mass]26.7 tvCngxyp87.7-34.0The [facility] HospitalComment on above:Performed By: #### CVDTBH #### [facility] [address] [place] [address] Dr. Ramses Parisi (RBC) [Mass/Vol]32.5 g/xOPbecxm42.9-35.2The [facility] HospitalComment on above:Performed By: #### CVDTBH #### [facility] [address] [place] [address] Dr. Ramses Quinones (RBC) [Entitic vol]82.0 uSJqdfbc41.0-99.0The [facility] HospitalComment on above:Performed By: #### EMERYTBH #### [facility] [address] [place] [address] Dr. Ramses Sharif #0.6 103/ulNormal0.3-0.8The [facility] HospitalComment on above:Performed By: #### CVDTBH #### [facility] [address] [place] [address] Dr. Ramses Cunhaocytes/100 WBC (Bld)8.6 %Normal1.7-12.0The [facility] Comment on above:Performed By: #### CVDTBH #### [facility] [address] [place] [address] Dr. Ramses Silva #3.3 103/ulNormal1.4-6.5The [facility] HospitalComment on above:Performed By: #### CVDTBH #### [facility] [address] [place] [address] Dr. Ramses Shelbyophils/100 WBC (Bld)51.1 %Apzrka47.0-75.0The [facility] HospitalComment on above:Performed By: #### CVDTBH #### [facility] [address] [place] [address] Dr. Ramses DumasPlatelet mean volume (Bld) [Entitic vol]8.7 fLCritically low 9.5-13.5The [facility] HospitalComment on above:Performed By: #### CVDTBH #### [facility] [address] [place] [address] Dr. Ramses DumasPLT409 103/nhAkecyt791-030Gzw [facility] HospitalComment on above: Performed By: #### CVDTBH #### [facility] [address] [address] [address] Ramses DumasRBC4.95 106/ulNormal4.20-5.40The [facility] HospitalComment on above:Performed By: #### CVDTBH #### [facility] [address] [place] [address] Dr. Ramses DumasWBC6.4 103/ulNormal4.0-11.0The [facility] HospitalComment on above: Performed By: #### CVDTBH #### [facility] [address] [place] [address] Dr. Ramses DumasCovid-19 PCR ([facility])on [id number]-CoV-2 (COVID-19) RNA FRANCESCA+probe Ql (Unsp spec)Not detectedNormalNOT DETECTEDThe [facility] Comment on above:Result Comment: When diagnostic [...] for this test is supported by the [place] [employer] and Human Service's declaration that [...] longer be used).Performed By: #### CVDTBH #### [facility] [address] [place] [address] Dr. Ramses DumasDRUG SCREEN RAPID (URINE)on [id number]Z [facility] on above:Performed By: #### CBC #### [facility] [address] [place] [address] Dr. Ramses DumasBARNegativeNormalNEGWright-Patterson Medical CenterCompine rest [facility] services on above: Performed By: #### CBC #### [facility] [address] [place] [address] Dr. Ramses DumasBUPNegativermdcNEGWright-Patterson Medical CenterCompine rest [facility] on above: Performed By: #### CBC #### [facility] [address] [place] [address] Dr. Ramses DumasBZONegativeBragg CityNEGWright-Patterson Medical CenterCompine rest [facility] on above: Performed By: #### CBC #### [facility] [address] [place] [address] Dr. Ramses DumasCOCNegativeCleveland Clinic Avon HospitalCompine rest [facility] mental [facility] services on above: Performed By: #### CBC #### [facility] [address] [place] [address] Dr. Ramses RosenbergThe MetroHealth SystemComment on above: Result Comment: AMP (Amphetamine): 500ng/mL, BAR (Barbituates): 200 ng/mL, BZO (Benzodiazepines): 150 ng/mL, BUP (Buprenorphine): 10 ng/mL, ODILIA (Cocaine): 150 ng/mL, mAMP (Methamphetamine): 500 ng/mL, MTD (Methadone): 200 ng/mL, OPI (Opiates): 100 ng/mL, OXY (Oxycodone): 100 ng/mL, PCP (Phencyclidine): 25 ng/mL, PPX (Propoxyphene): 300 ng/mL, THC (Cannabinoids): 50 ng/mL, TCA (Trycyclic Antidepressants): 300 ng/mLPerformed By: #### CBC #### [facility] [address] [place] [address] Dr. Ramses Sanford CUT HEADERDRUG CLASS TEST SYSTEM CUT-OFF CONCENTRATIONS ARE FOLLOWS:NormalThe [facility] HospitalComment on above:Performed By: #### CBC #### [facility] [address] [place] [address] Dr. Ramses DumasmAMPNegativeNormalNEGATIVEBlanchard [facility] on above: Performed By: #### CBC #### [facility] [address] [address] [address] Ramses DumasMTDNegativeNormalNEGATIVESt. Vincent HospitalCompine rest [facility] mental [facility] services on above: Performed By: #### CBC #### [facility] [address] [place] [address] Dr. Ramses DumasOPINegativeNormalNEGATIVEBlanchard [facility] on above: Performed By: #### CBC #### [facility] [address] [place] [address] Dr. Ramses DumasOXYNegativeNormalNEGATIVESt. Vincent HospitalCompine rest [facility] mental [facility] services on above: Performed By: #### CBC #### [facility] [address] [place] [address] Dr. Ramses DumasPCPNegativeNormalNEGATIVEBlanchard [facility] on above: Performed By: #### CBC #### [facility] [address] [place] [address] Dr. Ramses DumasPPXNegativeNormalNEGATIVEBlanchard [facility] on above: Performed By: #### CBC #### [facility] [address] [place] [address] Dr. Ramses DumasTCANegativeNormalNEGATIVESt. Vincent HospitalCompine rest [facility] on above: Performed By: #### CBC #### [facility] [address] [place] [address] Dr. Ramses DumasTHCNegativeNormalNEGATIVEBlanchard [facility] on above: Performed By: #### CBC #### [facility] [address] [place] [address] Dr. Pearce ChangER URINE PROFILEon [id number] Ql (U)NegativeNormal NEGATIVESt. Vincent HospitalComment on above:Performed By: #### CBC #### [facility] [address] [address] [address] Ramses DumasClarity (U)CLEARNormalCLEARSt. Vincent HospitalComment on above: Performed By: #### CBC #### [facility] [address] [address] [address] Ramses Francis (U)LT. YELLOWNormalYELLOWSt. Vincent HospitalComment on above:Performed By: #### CBC #### [facility] [address] [address] [address] Ramses Lizarraga micrscopic examination will be performed if indicated. NormalSt. Vincent HospitalComment on above:Performed By: #### CBC #### [facility] [address] [place] [address] Dr. Ramses DumasGlucose Ql (U)NegativeNormalNEGATIVESt. Vincent HospitalComment on above:Performed By: #### CBC #### [facility] [address] [address] [address] Ramses DumasHemoglobin Ql (U)LARGEAbnormalNEGWright-Patterson Medical Center Comment on above:Performed By: #### CBC #### [facility] [address] [place] [address] Dr. Ramses DumasKetones Ql (U)NegativeNormalNEGATIVESt. Vincent HospitalComment on above:Performed By: #### CBC #### [facility] [address] [address] [address] Ramses DumasLEUKOCYTESLARGEAbnormalNEGWright-Patterson Medical CenterCompine rest [facility] services on above:Performed By: #### CBC #### [facility] [address] [address] [address] Ramses DumasNitrite Ql (U)PositiveAbnormalNEGWright-Patterson Medical Center Comment on above:Performed By: #### CBC #### [facility] [address] [address] [address] Ramses DumaspH (U)6.0 [pH]Normal5-9The [facility] HospitalComment on above: Performed By: #### CBC #### [facility] [address] [place] [address] Dr. Ramses DumasProtein (U) [Mass/Vol]30 mg/dLAbnormalNEGATIVE/ TRACEThe [facility] HospitalComment on above:Performed By: #### CBC #### [facility] [address] [place] [address] Dr. Ramses DumasSPEC GRAVITY>=1.051Hrgumrec6.005-<=1.025The [facility] Comment on above:Performed By: #### CBC #### [facility] [address] [place] [address] Dr. Ramses Carrasco MICRO INDINDICATEDNoGood Samaritan HospitalComment on above: Performed By: #### CBC #### [facility] [facility] [address] [place] [address] Dr. Ramses Adamsonbilinogen Qn (U)0.2 {Lucero'U}/dLNormal0.2 - 1.0The [facility] HospitalComment on above:Performed By: #### CBC #### [facility] [address] [place] [address] Dr. Ramses Price (BLD ALC)on 97-33-6008EVO NOTENOTE: 80 mg/dl is the legal limit for a blood alcohol levelNoGood Samaritan HospitalComment on above: Performed By: #### BLDCX2 #### [facility] [address] [place] [address] Dr. Ramses Rappanol [Mass/Vol]mg/dLNoGood Samaritan HospitalComment on above:Performed By: #### BLDCX2 #### [facility] [address] [place] [address] Dr. Ramses DumasPREGNANCY URon 26-47-1348HBHFGJMMO, QUALNegativeNormalNEGATIVEThe [facility] HospitalComment on above:Performed By: #### CBC #### [facility] [address] [place] [address] Dr. Ramses Schmid 14(COMP METB)on 15-73-3770Ldzbggb [Mass/Vol]3.8 g/dLNormal 3.4-5.0The [facility] HospitalComment on above:Performed By: #### URCX #### [facility] [address] [address] [address] Ramses DumasAlbumin/Globulin [Mass ratio]0.9 {ratio}NormalThe [facility] HospitalComment on above:Performed By: #### URCX #### [facility] [address] [address] [address] Ramses WinklerP [Catalytic activity/Vol]82 U/RJsfuhq97-661Ffu [facility] HospitalComment on above:Performed By: #### URCX #### [facility] [address] [address] [address] Ramses WinklerT [Catalytic activity/Vol]41 U/TCyinfy20-77Nqk [facility] HospitalComment on above:Performed By: #### URCX #### [facility] [address] [address] [address] Ramses Matson gap [Moles/Vol]9.3 mmol/LNormalThe [facility] HospitalComment on above:Performed By: #### URCX #### [facility] [address] [address] [address] Ramses DumasAST [Catalytic activity/Vol]21 U/EBaborm90-53Rha [facility] HospitalComment on above:Performed By: #### URCX #### [facility] [address] [address] [address] Ramses DumasBilirubin [Mass/Vol]0.3 mg/dLNormal0.2-1.0The [facility] Comment on above:Performed By: #### URCX #### [facility] [address] [address] [address] Ramses DumasCalcium [Mass/Vol]8.9 mg/dLNormal8.5-10.1The [facility] Comment on above:Performed By: #### URCX #### [facility] [address] [address] [address] Ramess DumasChloride [Moles/Vol]105 mmol/FGxhnes90-731Ezv [facility] Comment on above:Performed By: #### URCX #### [facility] [address] [address] [address] Ramses DumasCO2 [Moles/Vol]28.5 mmol/GPnrexd32.0-32.0The [facility] Comment on above:Performed By: #### URCX #### [facility] [address] [address] [address] Ramses DumasCreatinine [Mass/Vol]0.81 mg/dLNormal0.55-1.02The [facility] HospitalComment on above:Performed By: #### URCX #### [facility] [address] [address] [address] Pearce ChangEGFR-AF CHILEAN>60Normal>=60The [facility] HospitalComment on above:Performed By: #### URCX #### [facility] [address] [address] [address] Ramses PenaGFR-NON AF CHILEAN>60Normal>=60The [facility] HospitalComment on above:Performed By: #### URCX #### [facility] [address] [address] [address] Ramses DumasGlobulin (S) [Mass/Vol]4.1 g/dLNormalThe [facility] HospitalComment on above:Performed By: #### URCX #### [facility] [address] [address] [address] Ramses DumasGlucose [Mass/Vol]100 mg/fNBednla80-332Kgr [facility] Comment on above:Performed By: #### URCX #### [facility] [address] [address] [address] Ramses DumasPotassium [Moles/Vol]3.8 mmol/LNormal3.5-5.1The [facility] Comment on above:Performed By: #### URCX #### [facility] [address] [address] [address] Ramses DumasProtein [Mass/Vol]7.9 g/dLNormal6.4-8.2The [facility] Comment on above:Performed By: #### URCX #### [facility] [address] [address] [address] Ramses DumasSodium [Moles/Vol]139 mmol/VXrvzbh136-096Otz [facility] Comment on above:Performed By: #### URCX #### [facility] [address] [address] [address] Ramses DumasUrea nitrogen [Mass/Vol]10.0 mg/dLNormal7.0-18.0The [facility] HospitalComment on above:Performed By: #### URCX #### [facility] [address] [place] [address] Dr. Ramses Coronado nitrogen/Creatinine [Mass ratio]12.3 mg/mgNoGood Samaritan HospitalComment on above:Performed By: #### URCX #### [facility] [address] [place] [address] Dr. Ramses DumasSALICYLATEon 18-33-6462LVXNCCEBJX<2.8Normal<=19.9The [facility] HospitalComment on above:Performed By: #### URCX #### [facility] [address] [address] [address] Ramses Olsen MICROSCOPIC ONLYon 38-69-2674NQEXEYXQAHCERAlczufrdHUTP SEEN The [facility] HospitalComment on above:Performed By: #### CBC #### [facility] [address] [place] [address] Dr. Ramses DumasBactjesse identified Cx Nom (U)INDICATEDNoGood Samaritan HospitalComment on above:Performed By: #### CBC #### [facility] [address] [place] [address] Dr. Ramses Hidalgo OX CRYSTALSRARENormalThe [facility] HospitalComment on above: Performed By: #### CBC #### [facility] [address] [address] [address] Ramses Hays SEENNormalNONE SEENBl[facility] on above:Performed By: #### CBC #### [facility] [address] [address] [address] Ramses DumasCrystals LM Nom (Urine sed)SEENAbnormalNONE SEENBlanchard [facility] on above:Performed By: #### CBC #### [facility] [address] [address] [address] Ramses Peñathelial cells LM Ql (Urine sed)MODERATEAbnormalNONE SEEN /RARE [facility] on above:Performed By: #### CBC #### [facility] [address] [place] [address] Dr. Ramses DumasMUCOUSNEELA SEENBragg CityNONE SEENBlanchard [facility] on above:Performed By: #### CBC #### [facility] [address] [place] [address] Dr. Ramses DumasUslglIEW43-88Xjafufge1-4RszBlanchard Valley Health [facility] on above: Performed By: #### CBC #### [facility] [address] [place] [address] Dr. Ramses DumasAihhiFJU49-59BvwkjgneUAAF SEENBlanchard [facility] on above: Performed By: #### CBC #### [facility] [address] [place] [address] Dr. Ramses Peñalozap IG,rfx Aptima HPV all pthon 08-09-2022..NormalThe [facility] on above:Performed By: #### CMP #### [facility] [address] [place] [address] Dr. Ramses DumasDIAGNOSIS:CommentAbSelect Medical Specialty [facility] on above: Result Comment: EPITHELIAL CELL ABNORMALITY. LOW GRADE SQUAMOUS INTRAEPITHELIAL LESION (LSIL).Performed By: #### CMP #### [facility] [address] [place] [address] Dr. Pearce ChangElectronically signed by:CommentSelect Medical Specialty Hospital - [facility] Comment on above:Result Comment: Ashtyn Joseph MD, PathologistPerformed By: #### CMP #### [facility] [address] [place] [address] Dr. Ramses DumasHPPrashanth AptimaNegativeNormalNegativeBlanchard [facility] on above:Result Comment: This nucleic acid amplification test detects fourteen high-risk HPV types (16,18,31,33,35,39,45,51,52,56,58,59,66,68) without differentiation.Performed By: #### CMP #### [facility] [address] [place] [address] Dr. Ramses DumasMethodology:CommentACMC Healthcare System on above: Result Comment: This liquid based ThinPrep(R) pap test was screened with the use of an image guided system.Performed By: #### CMP #### [facility] [address] [place] [address] Dr. Ramses DumasNote:CommentNoOhioHealth Dublin [facility] on above:Result Comment: The Pap smear is a screening test designed to aid in the detection of premalignant and malignant conditions of the uterine cervix. It is not a diagnostic procedure and should not be used as the sole means of detecting cervical cancer. Both false-positive and false-negative reports do occur. .Performed By: #### CMP #### [facility] [address] [place] [address] Dr. Ramses DumasPathologist Provided BER32NpxkspqFgznghYqwSelect Medical Specialty [facility] Comment on above:Result Comment: [id number] By: #### CMP #### [facility] [address] [place] [address] Dr. Ramses DumasPerformed by:CommentACMC Healthcare System on above: Result Comment: Rad Ruano, Railroad Brake Operator (ASCP)Performed By: #### CMP #### [facility] [address] [place] [address] Dr. Ramses DumasReflex Criteria:CommentACMC Healthcare System on above:Result Comment: See below for HPV testing results. .Performed By: #### CMP #### [facility] [address] [place], [place] [address] Dr. Ramses DumasSpecimen adequacy:CommentNoGood Samaritan HospitalComment on above:Result Comment: Satisfactory for evaluation. Endocervical and/or squamous metaplastic cells (endocervical component) are present.Performed By: #### CMP #### [facility] [address] [place], [place] [address] Dr. Ramses Dumas Vital Signs Date TimeVital SignValuePerforming OeycbjozqWlomifzx07-07-3465 13:06-0400Body mass index (BMI) [Ratio]29.86 kg/y3FldokHaverhill Pavilion Behavioral Health Hospital Work Phone: [phone] [place], [place] [address]Fzxmaezpfl26-69-0011 13:06-0400Body syjyej33.92 kgCoreHaverhill Pavilion Behavioral Health Hospital Work Phone: [phone] [place], [place] [address]Oiemibsxzy88-35-3106 13:06-0400Diastolic blood diqqfbys17 mm[Hg][facility] Work Phone: [phone] [place], [place] [address]Kocfombevs98-18-5444 13:06-0400Systolic blood rfbafedq545 mm[Hg][facility] Work Phone: [phone] [place], [place] [address]Tyiycfmtnt84-30-6141 09:23-0400Body temperature 98.1 [degF]Luis Felipe Delacruz MD Work Phone: Bon [facility]04-13-2025 09:23-0400Diastolic blood ohpobxmd18 mm[Hg]Luis Felipe Delacruz MD Work Phone: Bon [facility] [facility] HospitalAoufmm56-13-7288 09:23-0400Heart rate81 /Jeevan Delacruz MD Work Phone: [address] [address]-13-2025 09:23-0400 Respiratory rate18 /minLuis Felipe Delacruz MD Work Phone: Bon [facility]04-13-2025 09:23-0847NrG4% (BldA) [Mass fraction]100 %Luis Felipe Delacruz MD Work Phone: Bari [facility]04-13-2025 09:23-0400Systolic blood txzzjyyc155 mm[Hg]Luis Felipe Delacruz MD Work Phone: Xari [facility]04-13-2025 06:00-0400Body mass index (BMI) [Ratio]29.01 kg/e0VqwqgqnjLuis Felipe Delacruz MD Work Phone: Zari [facility]04-13-2025 06:00-0400Body qnkimx84.5 kgMosushil Delacruz MD Work Phone: [phone]-Shraddha5Bari [facility]04-11-2025 10:01-0400Body ifbtvu820.6 cmLuis Felipe Delacruz MD Work Phone: [phone]-Mandy [facility]04-06-2025 11:49-0400Body bxxeioklvkx06.7 [degF]Luis Felipe Delacruz MD Work Phone: [phone]-Mandy [facility]04-06-2025 11:49-0400Diastolic blood febeybwd81 mm[Hg]Luis Felipe Delacruz MD Work Phone: Qari [facility]04-06-2025 11:49-0400Heart rate54 /Jeevan Delacruz MD Work Phone: Aari [facility]04-06-2025 11:49-0400 Respiratory rate15 /Jeevan Delacruz MD Work Phone: Bari [facility]04-06-2025 11:49-0398GuR2% (BldA) [Mass fraction]98 %Luis Felipe Delacruz MD Work Phone: Bari [facility]04-06-2025 11:49-0400Systolic blood bfdvrozn231 mm[Hg]Luis Felipe Delacruz MD Work Phone: Bari [facility] JosephSkyscanner Byekko32-16-5411 23:45-0400Body qusatv000.6 cmLuis Felipe Delacruz MD Work Phone: Bon [facility] [facility]WeOrder LTDFgmaqq91-20-7683 23:45-0400Body mass index (BMI) [Ratio]28.23 kg/l1KyvmwpkfLuis Felipe Delacruz MD Work Phone: bon [facility]04-05-2025 23:45-0400Body bkexma10.3 kgLuis Felipe Delacruz MD Work Phone: bon [facility]06-23-2024 07:30-0400Body [degF]MD Domingo Snyder Work Phone: 1([phone])863-[address] [place], [place] [address]106-23-2024 07:30-0400 Diastolic blood mogpmhtf70 mm[Hg]MD Domingo Snyder Work Phone: [phone]06-23-2024 07:30-0400 Heart rate75 /minMD Domingo Snyder Work Phone: [phone]06-23-2024 07:30-0400 Respiratory rate16 /minMD Domingo Snyder Work Phone: [phone]06-23-2024 07:30-0400 SaO2% (BldA) [Mass fraction]100 %MD Domingo Snyder Work Phone: [phone] [place], [place] [address]106-23-2024 07:30-0400 Systolic blood jfpzlvuk621 mm[Hg]MD Domingo Snyder Work Phone: [phone] [place], [place] [address]106-21-2024 22:44-0400 Body stakmm282.64 cmMD Domingo Snyder Work Phone: [phone] [place], [place] [address]106-21-2024 22:44-0400 Body hhqilg86.58 kgMD Domingo Snyder Work Phone: [phone]06-02-2023 10:30-0400 Blood Pressure LocationPatricjada RAYGOZA [facility]06-02-2023 10:30-0400Diastolic blood jgsyviyb77 mm[Hg]Nona RAYGOZA [facility]06-02-2023 10:30-0400Heart rate80 /minParavindra RAYGOZA [facility]06-02-2023 10:30-0400Respiratory rate16 /minNona RAYGOZA [facility]06-02-2023 10:30-0400Systolic blood xcchivnk215 mm[Hg]Nona RAYGOZA [facility] Encounters Encounter DateEncounter TypeCare ProviderFacilityStart: 18-83-4112vaubbmghqs Donohue Talal SarminiFacility:[facility] DHStart: 69-21-4912qodeoivnvd Donohue SarminiFacility:[facility] DHStart: 59-15-5917ksjbdecasdUuvbimix SarminiFacility:[facility] Healthcaretart: 05-29-2025 End: 81-60-4825Rmzdax follow up visit related to original pxPatrick Leiva MD Work Phone: no Linda DermatologyComment on above:Encounter for removal of sutures (Primary Dx)Start: 05-29-2025 End: 17-86-9553Zfkrxe Maury Leiva MD Work Phone: noMS Saeed DermatologyStart: 05-29-2025 End: 64-14-4184Mdobnu Maury Leiva MD Work Phone: noMS Saeed DermatologyStart: 05-15-2025 End: 60-68-1347Ryvfxwg encounter procedureEmglenn Leiva MD Work Phone: noms Linda DermatologyComment on above:Neoplasm of unspecified behavior of bone, soft tissue, and skin (Primary Dx)Start: 05-15-2025 End: 03-34-6145jrcahkhhjzDUATW A PETITTINot AvailableStart: 05-05-2025 End: 69-02-9407sdsmdhiugqMril E [facility] Work Phone: Start: 05-05-2025 End: 93-18-4451Kxccqgcu Shannan Fraire DO-LAB Path Spec [facility] HospStart: 04-24-2025 End: 89-25-9900Tfmbobzeina Leiva MD Work Phone: noms [facility] DERMStart: 04-24-2025 End: 80-49-4915Crikjoodilia Leiva MD Work Phone: noms [facility] DERMStart: 04-24-2025 End: 43-95-0494Gafhgt follow up visit related to original Dotty Leiva MD Work Phone: noms [facility] DERMComment on above:Encounter for removal of sutures (Primary Dx)Start: 04-24-2025 End: 95-81-0054sccxdpzolkCVATZ A PETITTINot AvailableStart: 04-10-2025 End: 33-16-5874Omyvezodilia Leiva MD Work Phone: noms [facility] DERMStart: 04-10-2025 End: 77-99-1615Vznfyzodilia Leiva MD Work Phone: noms [facility] DERMStart: 04-10-2025 End: 86-76-9432Dmgbim outpatient new 20 minutesPatrick Leiva MD Work Phone: noms [facility] DERMComment on above:Hordeolum externum of right upper eyelid (Primary Dx); Neoplasm of unspecified behavior of bone, soft tissue, and skinStart: 04-10-2025 End: 62-24-0194ighpgrbmfiUPMVI A PETITTINot AvailableStart: 04-05-2025 End: 89-97-6430Mfzdaz flowsheetCorey Bernie DO Work Phone: noms BCP OBStart: 04-05-2025 End: 87-02-5160Combmc flowsheetCorey Bernie DO Work Phone: noms BCP OBStart: 04-05-2025 End: 35-91-3204Kftzlgbsp Result EncounterCorey Bernie DO Work Phone: noms External Department UnsolicitedStart: 04-05-2025 End: 86-66-6052Eebmvuj encounter procedureCorey Bernie DO Work Phone: noms HealthcareStart: 04-05-2025 End: 10-32-2753Swhchyvc preventive med est patient 18-39 yrsCorey Bernie DO Work Phone: noms BCP OBComment on above:Well woman exam with routine gynecological exam; H/O: hysterectomy; Night sweatsStart: 04-05-2025 End: 37-58-4681jezjcourvvKXSBF TRISTONONot AvailableStart: 03-16-2025 End: 80-92-1093jjaljbujrtYesrift J Buckcility:[facility] Systemtart: 01-26-2025 End: 34-83-1273Yqemnkxovc and management of inpatientMosushil Delacruz MD Work Phone: stvz Renal//Med SurgComment on above:Bilateral ureteral calculi; Acute postoperative painStart: 18-80-4053Ofmjuybxj department patient visit DOMINGO SNYDERWenatchee Valley Medical Centerity:[facility] Systemtart: 01-21-2025 End: 03-88-7423Wrprpfodxa and management of inpatientMosushil Delacruz MD Work Phone: stvz 3C MED SURGComment on above:Acute postoperative pain (Primary Dx); Renal calculus, leftStart: 01-21-2025 End: 12-90-2669qmmudhibfuManwsgf M Hoy MD Work Phone: [facility] Work Phone: Start: 01-21-2025 End: 54-79-3663Nscscxbh ReferredDomingo Snyder MD Work Phone: [facility]-LAB Path Spec [facility] HospStart: 01-17-2025 End: 86-86-5404lisdmdynacURSJXWP M HOYMercy Mount Zion campustart: 01-17-2025 End: 43-71-8010Ysubbwxghd hospital visit by physicianStprashanth Shi Rn [facility] Special ProceduresComment on above:ArrivedVUR (vesicoureteric reflux)Start: 01-05-2025 End: 11-11-7703qvffvpuuqaSHVUBFK [facility] Hospitaltart: 12-02-2024 End: 74-42-4858ntxbzvvsnuZbbyrir M Hoy MD Work Phone: [facility] Work Phone: Start: 12-02-2024 End: 77-92-1409Hfdcahtk ReferredDomingo Snyder MD Work Phone: [facility]-LAB Path Spec [facility] HospStart: 06-16-2024 End: 50-68-2328xxdhfcbzzoTcwkswAtyoj: 20-12-0718Bmo-patient / Non-visitMD Domingo Lillian Work Phone: [facility] Work Phone: Start: 04-08-2024 End: 34-13-0274Zuosqiflrs and management of inpatientMD Domingo Snyder Work Phone: [facility]-[address] [place] [address] Work Phone: Start: 12-29-2023 End: 23-58-6773Mkvrndjdc Result EncounterCorey Bernie DO Work Phone: noms External Department UnsolicitedStart: 12-29-2023 End: 94-13-4939Fmbooeywq Result EncounterCorey Bernie DO Work Phone: noms External Department UnsolicitedStart: 12-23-2023 End: 27-12-3979Tacxeccwy Result EncounterTamiko MADDOX Work Phone: noms External Department UnsolicitedStart: 12-23-2023 End: 13-04-0457Ekgturvbl Result EncounterTamiko MADDOX Work Phone: noms External Department UnsolicitedStart: 12-04-2023 End: 00-65-6244Vejxyrk encounter procedurePatricjada Turner Oportunista [facility] start: 04-10-2023 End: 61-51-9672Oxujgme encounter statusCorey Bernie DO Work Phone: NOWI HealthcareStart: 03-20-2023 End: 44-22-6669Qeowguz encounter procedurePatricjada Turner Oportunista [facility] start: 02-16-2023 End: 65-71-6799jshgxzbldjYR DOMINGO HOY .Facility:F8Kavxg: 02-02-2023 End: 28-57-0094klktlfqvtbCA DOMINGO HOY .Facility:Q3Ymzaq: 12-26-2022 End: 31-50-3893Gifmavn encounter procedureParavindra Turner Oportunista [facility] start: 12-16-2022 End: 62-49-7006fbnpreftteNT NONA RAYGOZA .Facility:Q8Kdhxu: 12-15-2022 End: 66-89-5727crseehhcbnLJ NONA RAYGOZA .Facility:D9Tdhff: 11-27-2022 ambulatoryDR DOMINGO HOY .Facility:Y7Gaxcb: 11-07-2022 End: 22-17-1408zbyttuekfpBG DOMINGO HOY .Facility:K9Nmsgt: 39-03-4707Egoklrdzu for preprocedural cardiovascular examinationDR JEFFERSON BERNIE .[facility] HospitalStart: 01-51-0883Uopupjrza for preprocedural laboratory examinationDR JEFFERSON BERNIE .[facility] HospitalStart: 11-03-2022 End: 01-08-8832Uhjifeboy for preprocedural cardiovascular examinationDR DOMINGO HOY .Facility:L2Jdbeb: 11-03-2022 End: 81-49-8238qofwqmfzlnJC DOMINGO HOY .Facility:S3Ekpng: 54-27-5810Xekdsmnfs for preprocedural laboratory examinationDR NONA RAYGOZA .[facility] Start: 09-18-2022 End: 25-13-1404szumdsvssaJW NONA RAYGOZA .Facility:G7Yqgld: 09-16-2022 End: 39-88-2561dvjrxvouijUO NONA RAYGOZA .Facility:I9Kebmb: 09-16-2022 End: 33-10-4161Njvnovrxa for preprocedural laboratory examinationDR NONA RAYGOZA .Facility:O4Bxmeq: 09-05-2022 End: 27-59-3127kbxyzqgjrjCQFBDZ RODRIGUEZ .Facility:H4Bpkay: 09-04-2022 End: 62-49-6599xbriiqmjzjEOHOW M DUNCANFacility:[facility] Hospitaltart: 09-04-2022 End: 87-71-4146gglzwzulxqJxsqkGayathri Montgomery APRN.HOD CARRIER Work Phone: UrologyComment on above:NO SHOW (Primary Dx)Start: 09-04-2022 End: 55-31-1033Jlsbzopekioi consultation with Gerhard Montgomery APRN.HOD CARRIER Work Phone: [facility]tart: 08-28-2022 End: 51-36-1804lgwgsgyxjjHN ERWIN SAWYERFacility:S6Wvspn: 08-22-2022 End: 74-05-6427cfubwwekvoJW DOMINGO SNYDER .Facility:D3Jjymz: 08-13-2022 End: 45-76-6539qlewpihwaiKXNGEW RODRIGUEZ .Facility:W1Dsdwk: 43-07-7413Qdmkraatx for cervical smear to confirm findings of recent normal smear following initial abnormal smearDR JEFFERSON GIBBS .[facility] Hospitaltart: 07-30-2022 End: 22-26-4211iyyhbtqenyKZ DOMINGO HOY .Facility:L6Qbmpn: 07-30-2022 End: 08-26-9716Wikhznduh for cervical smear to confirm findings of recent normal smear following initial abnormal smearDR DOMINGO HOY .Facility:B2Hoetu: 07-02-2022 End: 08-12-1135xcitsyflzvBR DOMINGO HOY .Facility:H1 Procedures DateProcedureProcedure DetailPerforming ClinicianStart: 39-32-5918KZBO EXCISION Patrickglenn Leiva MD Work Phone: Start: 72-16-5877EYIH REPAIREmglenn Leiva MD Work Phone: Start: 04-10-2025 End: 85-04-6008QVYA / NAIL BIOPSYEmglenn Leiva MD Work Phone: Start: 88-18-1708RIP,APTIMA HPV,AGE GDLNCorey Bernie DO Work Phone: Start: 04-05-5134Stobaxwgbig during operationSalekassidy Espino MD Work Phone: Start: 61-84-9918Cnefyun bacterial quanttative colony count urineSaleem Germain Espino MD Work Phone: Start: 82-68-2641BTXBGTW, BLOOD 1Mohammad Mashaleh DO Work Phone: Start: 27-16-5294FZIBIJA, BLOOD 1Mohammad Mashaleh DO Work Phone: Start: 10-23-7801Lfxxr metabolic panel calcium total Kyung Miester AEROPLANE PILOT - COMPLIANCE SPEC Work Phone: Start: 50-86-7647Hsspl metabolic panel calcium total Glen Desai MD Work Phone: Start: 01-05-3326Ffrinra bacterial quanttative colony count urineMosushil Delacruz MD Work Phone: Start: 45-29-9365Vyrbb dip stick/tablet rgnt auto w/o microscopyDanichol Desai MD Work Phone: Start: 37-93-7630Hzmxt of lactateRobin Adria BORDEN Work Phone: Start: 82-44-4846KCKYDJZJ SPECIMENMohammad Sesarmercy healthsanjay DO Work Phone: Start: 91-74-9607Ztrjjfhupcy during operationSurendra Salinas MD Work Phone: Start: 64-94-8666Botip metabolic panel calcium total Zia Covington MD Work Phone: Start: 18-82-7029Rvwsnayyehgwbbgpon voiding rs&i Adonis Guerra MD Work Phone: Start: 06-75-7919Kioer Aroldo Snyder MD Work Phone: Start: 79-49-6676RM POST BIOPSY LTCorey Bernie DO Work Phone: Start: 25-39-5782IK GUIDED BREAST BIOPSY LTCorey Bernie DO Work Phone: Start: 19-35-9297UJ TOMOSYNTHESIS DIAGNOSTIC Flaca MADDOX Work Phone: Start: 34-20-2810MC BREAST LT LIMITEDCorey Bernie DO Work Phone: Start: 55-76-7508Wfotutycxwb laser lithotripsy of ureteric calculusPatrick Oportunista Start: 04-45-9937Tundhalspch insertion of ureteric stentPatrick RAYGOZA Start: 30-71-1457StapsrqoebnmRxvqdhb RAYGOZA Start: 15-58-1980UdtegapnksapUydtadn RAYGOZA Comment on above:leftStart: 55-60-8250Xjviibowvqr insertion of ureteric stentPatrick RAYGOZA Start: 95-76-6438Oovpjxglzwcwewabd with dilation of urethral stricturePatrick RAYGOZA Start: 10-78-4795QyjjscvxjxlfeqmHfjacfw RAYGOZA H/O: hysterectomyH/O: hysterectomyCorey Bernie DO Work Phone: Plan of Treatment DateCare ActivityDetailAuthorStart: 74-82-6770ESxQ/Tdap/Td vaccine (7 - Td or Tdap)DTaP/Tdap/Td vaccine (7 - Td or Tdap)[facility]: 05-29[facility]2026 End: 34-01-5410Wshadfd encounter /11/2026 1:15 PM EDT Office Visit [facility] [address] [place] [phone] Patrick Leiva MD [address] [place] [address] [facility] [place] [facility]: 04-09-2026 End: 04-86-2182Rbkbaax encounter procedureNOMS BCP OBStart: 05-29-2025 End: 96-92-2522Yqxhbix encounter procedureNOMS [place] DermatologyComment on above:ArrivedStart: 60-50-9467Pzidjnvnc vaccinationFlu vaccine (Season Ended)Bon [facility]Start: 05-15-2025 End: 38-32-7729Kvmogiq encounter batwyutyq11/28/2025 3:30 PM EDT Office Visit [facility] [address] [place] [phone] Patrick Leiva MD [address] [place] [address] [facility] DERMStart: 95-66-5648Hgvxj cultureAkron Children's Hospitaltart: 23-80-4275Etxwswgk identified in Urine by Culture Urine [facility]: 04-24-2025 End: 40-99-1698Uctnezs encounter procedureNOMS SWS DERMComment on above:Arrived Start: 04-10-2025 End: 25-37-9646Gnvzist encounter procedureNOMS SWS DERMComment on above:Arrived Start: 04-05-2025 End: 40-53-2827Jwzkkwd encounter bygxuqzox22/18/2025 1:00 PM EDT Office Visit [facility] [address] [place] [phone] Jefferson Gibbs, DO [address] [place], [place] [id number] [facility] OBComment on above:ArrivedStart: 01-22-2025 End: 37-40-0612KOJNJDWQZQ URETERAL STENT INSERTIONCYSTOSCOPY URETERAL STENT INSERTION Renal calculus, left 01/22/2025 9:28 AM [facility]art: 47-01-2276Vvpyl [facility] Centertart: 00-57-5968Ohhmjdet identified in Urine by CultureUrine CultureAkron Children's Hospitaltart: 47-98-6594Udvde [facility] Start: 30-83-5951Zolgzkmz identified in Urine by CultureUrine [facility] Hospitaltart: 14-16-0600GEJWR-19 Vaccine ( season) COVID-19 Vaccine ( season)[facility] CenterStart: 04-10-2024 [facility] Hospitaltart: 15-13-9895Qbcalovh to Wireless Watcher [facility] Hospitaltart: 04-99-8036Fegawozk admissionAkron Children's Hospitaltart: 68-84-8464YsbyyoguxAkron Children's Hospitaltart: 47-97-1913Ehgjayqas vaccinationINFLUENZA (#1)[facility]: 10-19-2021 DEPRESSION ASSESSMENTDEPRESSION ASSESSMENTThe [facility] Systemtart: 78-65-8956FYQ TESTINGHPV TESTINGThe [facility]Health Systemtart: 41-56-8385Diapolwgs for malignant neoplasm of cervixRiverside Behavioral Health Centerart: 02-19-6226IHF TESTINGPAP TESTINGThe [facility] Systemtart: 77-46-3383Eoxostmzx for malignant neoplasm of cervixPap smearVCU Health Community Memorial Hospital: 20-34-2599Tfueu microalbumin profileDTAP,TDAP,TD (1 - Tdap)[facility]: 65-88-9823UXVUSXNZH C SCREENINGHEPATITIS C SCREENINGThe [facility] Systemtart: 97-47-1855Quqoedzuv C screeningHepatitis C screenSouthside Regional Medical CenterStart: 59-07-2303FZR SCREENINGHIV SCREENINGThe [facility] Systemtart: 73-25-3150EQA screeningHIV screen [facility] CenterStart: 79-05-2419Zxpapgdgl vaccine (1 of 2 - 13+ 2-dose series)Varicella vaccine (1 of 2 - 13+ 2-dose series)[facility] Start: 38-22-8657Dilbcuuqgb ScreenDepression ScreenSouthside Regional Medical Center Start: 83-37-2500Xpaox vaccine (4 of 4 - 4-dose series)Polio vaccine (4 of 4 - 4-dose series)[facility] CenterStart: 85-07-8397DJYIQ-19 VACCINE (#1) COVID-19 VACCINE (#1)[facility] Systemtart: 24-29-6847QNVMLPLQG B (1 of 3 - 3- dose series)HEPATITIS B (1 of 3 - 3-dose series)[facility] End: 69-94-6917Qikug metabolic 2000 panel - Serum or PlasmaBasic metabolic panel Lab Routine Daily for 3 Days starting 01/22/2025 until 01/24/2025, 1 completed [facility] on above:Daily for 3 Days starting 01/22/2025 until 01/24/2025, 1 completed End: 43-26-8501XZB W Auto Differential panel - BloodCBC with Auto Differential Lab Routine Daily for 3 Days starting 01/22/2025 until 5BSouthside Regional Medical Center on above:Daily for 3 Days starting 01/22/2025 until 5Culture, Blood 1Bon [facility] HospitalCulture, UrineBon [facility] on above:Release Upon Ordering for 1 Occurrences starting 01/22/2025ytology Cervical or vaginal smear or scraping studyPap Smear Pathology and Cytology Routine Well woman exam with routine gynecological exam Ordered: 04/05/2025[facility] Work Phone: comment on above:Ordered: 04/05/2025Dermatopathology examDermatopathology exam Pathology and Cytology Timed Neoplasm of unspecified behavior of bone, soft tissue, and skin Release Upon Ordering for 1 Occurrences starting 04/10/2025[facility] Work Phone: comment on above:Release Upon Ordering for 1 Occurrences starting 06/23/2025Dermatopathology examDermatopathology exam Pathology and Cytology Timed Neoplasm of unspecified behavior of bone, soft ti ssue, and skin Release Upon Ordering for 1 Occurrences starting 05/15/2025[facility] Work Phone: comment on above:Release Upon Ordering for 1 Occurrences starting 05/15/2025 End: 94-81-5173Cyxylol [Mass/volume] in Serum or PlasmaPOCT Glucose Point of Care Testing Routine One Time for 1 Occurrences starting 01/22/2025 until MiNOWireless Work Phone: Comment on above:One Time for 1 Occurrences starting 01/22/2025 until 01/22/2025Human papilloma virus DNA [Presence] in Unspecified specimen by Probe with amplificationHPV DNA probe, amplified Microbiology Routine Well woman exam with routine gynecological exam Ordered: 04/05/2025[facility] SOL ELIXIRSComment on above:Ordered: 04/05/2025Oxygen therapy [Minimum Data Set] Initiate Oxygen Therapy Protocol Respiratory Care Routine As Needed until discontinued starting 01/21/2025 [facility]lessK[facility] on above:As Needed until discontinued starting 01/21/2025Oxygen therapy [Minimum Data Set] Initiate Oxygen Therapy Protocol Respiratory Care Routine As Needed until discontinued starting 01/26/2025 [facility]NOWirelessK[facility] on above:As Needed until discontinued starting 01/26/2025Patient EducationBipolar Disorder (DC) [facility] DC Instructions Know your [facility] Work Phone: Patient [facility] Work Phone: End: 55-23-0236Cyzjz AnalysisStone Analysis Microbiology Routine One Time for 1 Occurrences starting 01/22/2025 until 01/22/2025 [facility]NOW[facility]less Work Phone: comhwoe on above:One Time for 1 Occurrences starting 01/22/2025 until 01/22/2025Stone AnalysisStone Analysis Microbiology [employer] Label Print 01/22/2025 4:44 AM EDTBon [facility] End: 23-56-2711Escja AnalysisStone Analysis Microbiology Routine One Time for 1 Occurrences starting 01/26/2025 until 01/26/2025on [facility] on above:One Time for 1 Occurrences starting 01/26/2025 until 01/26/2025 Immunizations Immunization DateImmunizationNotesCare CvqqycsqFhtqsvzq49-98-1135mnmsmbxtu virus vaccine, unspecified formulationPaPrimeSense [facility]10-22-2018tetanus toxoid, reduced diphtheria toxoid, and acellular pertussis vaccine, adsorbedPa?k RAYGOZA [facility]10-21-2018influenza virus vaccine, unspecified formulationAssociated Material Processing [facility]09-01-2004hepatitis B vaccine, pediatric or pediatric/adolescent dosage [employer] [facility]06-09-2004hepatitis B vaccine, pediatric or pediatric/adolescent dosage [employer] [facility]03-01-2004hepatitis B vaccine, pediatric or pediatric/adolescent dosage [employer] [facility]03-01-2004measles, mumps and rubella virus vaccinePaPrimeSense [facility]06-23-1993DTaP, unspecified formulationPaPrimeSense [facility]06-23-1993poliovirus vaccine, unspecified formulationAssociated Material Processing [facility]03-12-1993Hib, unspecified formulationPaPrimeSense [facility]03-12-1993measles, mumps and rubella virus vaccinePaPrimeSense [facility]06-08-1992Hib, unspecified formulationParavindra RAYGOZA [facility]04-01-1992Hib, unspecified formulationNona RAYGOZA [facility]01-29-1992Hib, unspecified formulationNona RAYGOZA [facility] Payers DatePayer CategoryPayerPolicy [id number] Health InsuranceALLIED BENEFIT SYSTEMS [id number] 2021[place]icaid[place] MEDICAID TERM 09/17 [facility] MEDICAID [id number] 2021-Present [phone] [address] [place] [address] Medicaid [id number] 2.840.1.549184.3.57[id number] 2.840.1.396182.3.57[id number] 2.16.840.1.776380.3.57[id number] 2.16.840.1.552810.3.57[id number] 2.16.840.1.122854.3.579.2.71314-04-5414Jupxpbq0539625 2.16.840.1.891583.3.579.2.11236-16-1582Srkqxyd7266516 2.16.840.1.966234.3.579.2.67470-10-5791Mxrxxmf6385868 2.16.840.1.936006.3.579.2.94348-48-8896Aphpszj0134929 2.16.840.1.282596.3.579.2.17837-89-5142Xrjncyr9823185 2.16.840.1.221688.3.579.2.32685-36-7788Gzdiqzr7229475 2.16.840.1.118014.3.579.2.77227-28-8171Srzaorl8780720 2.16.840.1.206490.3.579.2.20210-96-6954Zdqsmst8222573 2.16.840.1.406872.3.579.2.13765-82-0414Ennvqjf2232425 2.16.840.1.344019.3.579.2.56199-22-9674Cmemwzj5660691 2.16.840.1.664339.3.579.2.85491-46-1482Chnxdtd5253878 2.16.840.1.538396.3.579.2.74668-83-5942Oldyktf09902092 2.16.840.1.012346.3.579.2.04[id number] 2..840.1.788658.3.579.2.[id number] 2.16.840.1.453452.3.579.2.89073-55-9355Rwuqiyl151686307 2.840.1.544395.3.579.2.42162-03-2170Exdocjf332273013 2.840.1.052573.3.579.2.69139-82-5118Txgdtgm85070081 2.0.1.429332.3.579.2.10553-41-6901Eihjujb52288384 2.840.1.175317.3.579.2.179752-16-7374Hhygcmx01756030 2.0.1.266225.3.579.2.399091-62-5485Xaxflbd15504894 2.0.1.559587.3.579.2.655227-88-0945Oocsfpp30463923 2.0.1.553641.3.579.2.670475-77-9061Stywfdr38452709 2.0.1.264232.3.579.2.727 [id number] 1960Self-pay [id number] 2.840.1.919483.3.579.2.531 [id number] 2.840.1.874298.3.579.2.025Dzwtkqi85102940 2.840.1.812828.3.579.2.531 Social History DateTypeDetailFacilityTobacco smoking status NHISTobacco smoking consumption unknownThe [facility] Systemtart: 95-18-3011Tuz Assigned At BirthNot on file [facility]: 08-20-2021 End: 04-05-0559Sddmjxt smoking statusNever smoked tobacco (finding)[facility]: 56-94-6380Kkhtxkl smoking statusNeverJatin [facility] Hospitaltart: 01-22-2025 End: 56-08-7189Nrk Assigned At [facility] CenterFeCleveland Clinictart: 27-16-9943Cfv Assigned At [facility]tart: 11-24-2024 End: 40-25-9624ElpRnfjlq (finding)[facility]tart: 01-22-2025 End: 48-18-3082Irhjhne use and exposureSmokeless tobacco non-userBon CloudPhysics [facility] HospitalStart: 01-22-2025 End: 82-27-1613Gugmnkoph beverage intakeEx-drinker (finding)Bon MiNOWirelessStart: 01-22-2025 End: 19-49-9873Gbeohoa of Social functionBon MiNOWirelessHas the electric, gas, oil, or water company threatened to shut off services in your home in past 12MoNoBon MiNOWireless(I/We) worried whether (my/our) food would run out before (I/we) got money to buy more.Never trueBon [facility] HospitalStart: 12-17-2023 End: 30-01-2810Htivqepcy beverage intakeLifetime non-drinker (finding)[facility] Procedure CodeEquipment CodeEquipment Original TextEquipment IdentifierDates Stent Uret 6fr L26cm Percflx Hydr+ Tapr Tip Grad - [id number] ()[id number], [id number] FDAStart: 19-13-3417Lxvtr Uret 6fr L26cm Percflx Hydr+ Dbl Pgtl Thrd 2 - [id number] ()[id number], [id number], [id number]_imp FDAStart: 01-27-2025 Goals DatePatient GoalDesired Activity/State Functional Status HnymUkxtvucvnoQrnitnJmnbaevi41-57-1004Cyzdrpxjas statusPatient at Baseline [facility] Work Phone: [phone]lldsn StatusN/AExecutive [facility] Mental Status YeueRulouwezagIhbbilQlgfpyql06-53-3338Quhjnpkbt functionCognitive Status Patient at BaselineProm[facility] Work Phone: Clinical Notes 07-03-2022 to 05-29-2025 Note Date & XzphFkxkYkucahrk18-35-7392 History of Present illness Narrative* Patrick Leiva [...] 1 year, skin check documented in this encounterRusk Rehabilitation CenterPkggvxsjdo18-02-6619 History of Present illness Narrative* Patrick Leiva [...] nevus Check Margins: Yes Previous accession number: [id number] 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, soft tissue, and skin Plan: Skin excision, Skin repair Follow up: 14 days for s/r documented in this encounterRusk Rehabilitation CenterPtdwpglxtx66-91-5801 History of Present illness Narrative* Patrick Leiva [...] Next Visit: as scheduled documented in this encounterRusk Rehabilitation CenterLjuulytqpw22-40-7871 History of Present illness Narrative* Patrick Leiva [...] OF RIGHT UPPER EYELID Right Upper Eyelid Free Soil papule Favor possible stye, recommend patient continue [...] Next Visit: 2 weeks documented in this [facility]06-18-2025 History of Present illness Narrative* Imani Sutton [...] (BMI) of 40.1 to 44.9 in adult ([facility]) 04/10/2023 Encounter for follow-up examination after completed treatment for conditions other than malignant neoplasm 04/10/2023 IUD contraception 04/10/2023 Menorrhagia with regular cycle 04/10/2023 Anti-M isoimmunization affecting , 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 Anxiety 07/26/2020 Bipolar disorder ([facility]) 06/01/2023 Dysuria 06/01/2023 Entrapment of left ulnar nerve 06/01/2023 Feeling of incomplete bladder emptying 06/01/2023 Flank pain 06/01/2023 Frequency of urination 06/01/2023 History of chlamydia 07/26/2020 History of gestational diabetes 07/26/2020 History of kidney stones 06/01/2023 Hypercalciuria 06/01/2023 Hyperoxaluria 06/01/2023 Intrauterine ([facility]) 02/18/2018 Lesion of ulnar nerve 06/01/2023 Mass of scalp 06/01/2023 Muscle pain 06/01/2023 Microhematuria 06/01/2023 Astigmatism 05/05/2017 Nocturia 06/01/2023 Overweight 06/01/2023 Pyelonephritis 06/01/2023 Kidney stone 06/01/2023 Retroflexion of uterus 06/01/2023 Sprain of calcaneofibular ligament 06/01/2023 Streptococcal pharyngitis 06/01/2023 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/01/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 06/01/2023 Superficial thrombophlebitis 06/01/2023 Term delivery with labor in third trimester ([facility]) 08/06/2018 Urge incontinence 06/01/2023 Urinary urgency 06/01/2023 UTI (urinary tract infection) 06/01/2023 Mass of left breast 01/08/2024 Resolved Ambulatory Problems Diagnosis Date Noted Encounter for gynecological examination (general) (routine) without abnormal findings 04/10/2023 Past Medical History: Diagnosis Date Abnormal Pap smear of cervix Anxiety and depression Bipolar 1 disorder ([facility]) Bladder prolapse, congenital ([facility]) Dysplasia of cervix S/P VH (vaginal [...] nursing note reviewed. Exam conducted with a front desk monitor present. Vitals: Estimated body mass index is [...] them. Patient can also view results via [employer]. I reinforced importance of condom use for [...] of: Jefferson Gibbs DO documented in this encounterRusk Rehabilitation CenterInnvdyyldo35-76-6830 History of Present illness Narrative* Balwinder Ashton [...] from the original note were not included. [facility] Office: [phone] Duncan Shelton DO, Rad Burks DO, Gerald [...] Rogers MD, Johnathon Cerda MD, Makenzie Alberts, HOD CARRIER, [place]an [place], HOD CARRIER, Casey Mrecer, HOD CARRIER, Galilea Bradshaw, ALFREDO, Ritika Villaseñor HOD CARRIER, Indu Montoya, HOD CARRIER, Angelica Chaney, HOD CARRIER, Vivian Kahn, HOD CARRIER, Garima Balbuena, PA-C, Kyung Barkley, HOD CARRIER, Hetal Morris, HOD CARRIER, Yvette Canchola, HOD CARRIER, Gail Greene,HOD CARRIER, Dominguez Nunez, PA-C, Mar Sanchez, HOD CARRIER, Cecelia Pearson, YARD PERSON, Ivy Cortes, HOD CARRIER, Felicita Rm, HOD CARRIER, Pau Viera, HOD CARRIER [facility] IN-PATIENT SERVICE [facility] Progress Note 01/29/2025 9:05 AM Name: Diana Barriga Acct: [id number] Room: 0321/0321-02 Day: 3 Admit Date: 01/26/2025 [...] results for input(s): LABALBU , LABA1C , T1FOOLM , FT4 , TSH , AST , ALT , LDH , GGT , ALKPHOS , BILITOT , BILIDIR , AMMONIA , AMYLASE , LIPASE , LACTATE , CHOL , HDL , CHOLHDLRATIO , TRIG , VLDL , SUF56FZ , PHENYTOIN , PHENYF , URICACID , POCGLU in the last 72 hours. Invalid input(s): PROT , L4ZJVAE , LABGGT , LDLCHOLESTEROL ABG:No results found for: POCPH , PHART , PH , POCPCO2 , GYL9ROQ , PCO2 , POCPO2 , PO2ART , PO2 , POCHCO3 , SCF2HBZ , HCO3 , NBEA , PBEA , BEART , BE , THGBART , THB , VVE0LGP , HEBL0OKM , V8FWXBBH , O2SAT , FIO2 Lab Results Component [...] from the original note were not included. [facility] Office: [phone] Duncan Shelton DO, Rad Burks DO, Gerald [...] Rogers MD, Johnathon Cer[place] MD, Makenzie Alberts, HOD CARRIER, [place]an [place], HOD CARRIER, Casey Mercer, HOD CARRIER, Galilea Bradshaw, [facility], Ritika Villaseñor, HOD CARRIER, Indu Montoya, HOD CARRIER, Angelica Chaney, HOD CARRIER, Vivian Kahn, HOD CARRIER, Garima Balbuena, PA-C, Kyung Barkley, HOD CARRIER, Hetal Morris, HOD CARRIER, Yvette Canchola, HOD CARRIER, Gali Greene,HOD CARRIER, Dominguez Nunez, PA-C, Mar Sanchez, HOD CARRIER, Cecelia Pearson, [facility], Ivy Cortes, [facility], Felicita Rm, [facility], Pau Viera, HOD CARRIER [facility] IN-PATIENT SERVICE [facility] Progress Note 01/28/2025 1:05 PM Name: Diana Barriga Acct: [id number] Room: 0321/0321-02 Day: 2 Admit Date: 01/26/2025 [...] results for input(s): LABALBU , LABA1C , O1BSCTK , FT4 , TSH , AST , ALT , LDH , GGT , ALKPHOS , BILITOT , BILIDIR , AMMONIA , AMYLASE , LIPASE , LACTATE , CHOL , HDL , CHOLHDLRATIO , TRIG , VLDL , WJQ10PF , PHENYTOIN , PHENYF , URICACID , POCGLU in the last 72 hours. Invalid input(s): PROT , P4SCUOV , LABGGT , LDLCHOLESTEROL ABG:No results found for: POCPH , PHART , PH , POCPCO2 , EAC9SMU , PCO2 , POCPO2 , PO2ART , PO2 , POCHCO3 , CJT0ZIU , HCO3 , NBEA , PBEA , BEART , BE , THGBART , THB , FHZ4JLD , STOF4IHD , H5KFCYOF , O2SAT , FIO2 Lab Results Component [...] 0.9 0.7 Recent Labs 01/26/25 1753 [address] [place]* PHUR 6.5 WBCUA 20 TO 50 RBCUA [...] today, 02/01 - Follow-up outpatient with Dr. Espion or Dr. 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 Current BMI (kg/m2): 29 Estimated Daily Nutrient Needs: Energy Requirements Based On: Formula Weight Used for Energy Requirements: Current Energy (kcal/day): 9744-7971 kcals/day Weight Used for Protein Requirements: Current Protein (g/day): 82-92 g/day Method Used for Fluid Requirements: 1 ml/kcal Fluid (ml/day): 0796-4234 ml/day Nutrition Diagnosis: Inadequate oral intake related [...] determine Anastasiya Medel RDN, LD, MS Contact: [phone] * Nathen Hemphill DO - 01/27/2025 8:39 AM EDT Images from the original note were not included. [facility] Office: [phone] Duncan Shelton DO, Rad Burks DO, Gerald [...] Rogers MD, Johnathon Cerda MD, Makenzie Alberts, HOD CARRIER, [place], HOD CARRIER, Casey Mercer, HOD CARRIER, Galilea Bradshaw, [facility], Ritika Villaseñor, HOD CARRIER, Indu Montoya, HOD CARRIER, Angelica Chaney, HOD CARRIER, Vivian Kahn, HOD CARRIER, Garima Balbuena, PA-C, Kyung Barkley, HOD CARRIER, Hetal Morris, HOD CARRIER, Yvette Canchola, HOD CARRIER, Gail Greene,HOD CARRIER, Dominguez Nunez, PA-C, Mar Sanchez, HOD CARRIER, Cecelia Pearson, [facility], Ivy Cortes, HOD CARRIER, Felicita mR, HOD CARRIER, Pau Viera, HOD CARRIER [facility] IN-PATIENT SERVICE [facility] Progress Note 01/27/2025 9:31 AM Name: Diana Barriga Acct: [id number] Room: [facility]/0321-02 Day: 1 Admit Date: 01/26/2025 5:25 PM PCP: Domingo Snyder MD Code Status: Full Code Subjective: Started having increased pain and pressure on left side on Thursday. Called Urologist yesterday who recommended going to [facility]. She had a CT scan which showed [...] Intake/Output Summary (Last 24 hours) at 01/27/2025 0910 Last data filed at 01/27/2025 0420 Gross per 24 hour Intake -- Output [...] results for input(s): LABALBU , LABA1C , X4WGMJK , FT4 , TSH , AST , ALT , LDH , GGT , ALKPHOS , BILITOT , BILIDIR , AMMONIA , AMYLASE , LIPASE , LACTATE , CHOL , HDL , CHOLHDLRATIO , TRIG , VLDL , CZS93EQ , PHENYTOIN , PHENYF , URICACID , POCGLU in the last 72 hours. Invalid input(s): PROT , R6LJKIQ , LABGGT , LDLCHOLESTEROL ABG:No results found for: POCPH , PHART , PH , POCPCO2 , LHG8UWY , PCO2 , POCPO2 , PO2ART , PO2 , POCHCO3 , RRO9HIW , HCO3 , NBEA , PBEA , BEART , BE , THGBART , THB , GYV5XXV , ODNR3DDY , U6BKFRDL , O2SAT , FIO2 Lab Results Component [...] CREATININE 0.9 Recent Labs 01/26/25 [address] [place]* PHUR 6.5 WBCUA 20 TO 50 RBCUA [...] 4:28 PM EDT documented in this encounterBon [facility] Hospital course Narrative* Nathen Hemphill DO - 01/29/2025 9:06 AM EDT Images from the original note were not included. [facility] Office: [phone] Duncan Shelton DO, Rad Burks DO, Gerald [...] Rogers MD, Johnathon Cerda MD, Makenzie Alberts, HOD CARRIER, [place], HOD CARRIER, Casey Mercer, [facility], Galilea Bradshaw, [facility], Ritika Villaseñor, HOD CARRIER, Indu Montoya, HOD CARRIER, Angelica Chaney, HOD CARRIER, Vivian Kahn, HOD CARRIER, Garima Balbuena, PA-C, Kyung Barkley, HOD CARRIER, Hetal Morris, HOD CARRIER, Yvette Canchola, [facility], Gail Greene,HOD CARRIER, Dominguez Nunze, PA-C, Mar Sanchez, HOD CARRIER, Cecelia Pearson, [facility], Ivy Cortes, [facility], Felicita Rm, [facility], Pau Viera, [facility] IN-PATIENT SERVICE [facility] Discharge Summary Patient ID: Diana Barriga : 1990 ACCOUNT: [id number] Patient's PCP: Domingo Snyder MD Admit Date: [...] Home Physician Follow Up: Domingo Snyder MD [address] [facility] [address] Schedule an appointment as soon as possible for a visit in 1 week(s) Adonis Guerra MD [address] [facility] [place] [address] Follow up Renal US in 6 [...] narcotics Please call attending physician or hospital shovel loader operator with questions Call or Present to [...] this patient's care. documented in this encounterBon [facility] Discharge instructions* Discharge Instructions* Glen Desai [...] narcotics Please call attending physician or hospital shovel loader operator with questions Call or Present to [...] Please call with questions. [facility] History of Present illness Narrative* Eboni Kline [...] and paid by clover documented in this [facility]South[facility] Hospital course Narrative* Nathen Hemphill DO - 01/22/2025 1:47 PM EDT Images from the original note were not included. [facility] Office: [phone] Duncan Shelton DO, Rad Burks DO, Gerald Le DO, Kyle Medina DO, Felipe Sandhu MD, Yancy Padgett MD, Sonia Alvarado MD, Kerri Meza MD, Arron Olson MD, Rebecca Cox MD, Deneen Kaur MD, Nathen Hemphill DO, Lynda Jimenez MD, Everette Wiggins MD, Andrey Shelton DO, Dorita Leigh MD, Dangelo Fernandez DO, Ciara Sales MD, Elaine Silevrman MD, Nasra Smiley MD, MD Tyesha, Dl Graham MD, Filomena Alexander MD, Lea Junior MD, Luis Felipe Delacruz MD, Tavares Cardoza MD, Casey Chavez DO, Lyle Nguyen MD, Nathen Rogers MD, Cata Rogers MD, Johnathon Cerda MD, Makenzie Alberts CNP, Hodan Grove CNP, Casey Mercer, HOD CARRIER, Galilea Bradshaw, [facility], Ritika Villaseñor, HOD CARRIER, Indu Montoya, HOD CARRIER, Angelica Chaney, HOD CARRIER, Vivian Kahn, HOD CARRIER, Garima Balbuena PA-C, Kyung Barkley, HOD CARRIER, Hetal Morris, HOD CARRIER, Yvette Canchola, HOD CARRIER, Gail Greene, HOD CARRIER, Dominguez Nunez PA-C, Mar Sanchez, HOD CARRIER, Cecelia Pearson, [facility], Ivy Cortes, HOD CARRIER, Felicita Rm, HOD CARRIER, Pau Viera, HOD CARRIER [facility] IN-PATIENT SERVICE [facility] Discharge Summary Patient ID: Diana Barriga : 1990 ACCOUNT: [id number] Patient's PCP: Domingo Snyder MD Admit Date: [...] who was transferred to our hospital from [facility] for evaluation of flank pain. CT [...] Home Physician Follow Up: Adonis Guerra MD [address] [facility] [place] [address] Schedule an appointment as soon as [...] Your Medications These medications were sent to [facility] [place], [place] - [address] - P [phone] - F [phone] [place] [address] hyoscyamine 0.125 MG tablet oxyCODONE 5 MG [...] patient's care. v documented in this encounterBon [facility] Hospital Discharge instructions* Discharge Instructions* Zia Covington [...] narcotics Please call attending physician or hospital shovel loader operator with questions Call or Present to ED if fever (> 101F), intractable nausea vomiting or pain. Rx e-prescribed Pt should follow up with Dr. Guerra, in 1-2 weeks, for definitive stone treatment, call to confirm appointment documented in this encounterBon [facility]06[facility] Discharge summary Author Arnulfo ornelas [facility] April 10, 2024 9:29amNote Date/TimeJune 2023 7:10am[place] [address] Discharge Summary Signed Patient: Diana Barriga MR#: [id number] : 1990 Acct:[id number] Age/Sex: 33 / F Adm Date: 4 Loc: Room: [address] [place] [address]: Arnulfo Aviles MD Copies to: [...] Dr. Fenton but wants to switch to [place]. Along with this patient is in marriage counseling with her current and that today's session was not good. Patient stated she needs to be home to take care of her kids, the custody [place], and her marriage. Patient upset because she missedher son's play and has plans to take kids to [place] tomorrow. Patient denies any suicidal ideation denies hallucinations denies racing thoughts. Patient reports that there is no changes in her appetite or sleep. Patient reports that she feels fine. She has tried a lot of medications in the past and believes none of them have worked. He is going to [place] for psych therapy. He wants to try [...] [facility] She deniedrecent suicideattempts or self injures behaviors. [...] Restriction Diet: Regular Instructions: Bipolar Disorder (DC), [facility] DC Instructions, [...] 2.01 Documented By: Arnulfo Aviles MD 4 0410 Signed By: <Electronically signed by Arnulfo Aviles MD> 04/10/24 0929 [facility] Work Phone: 1(494) 857-805106-22-2024 History and physical note Author Arnulfo ornelas [facility] April 09, 2024 9:09amNote Date/TimeJune 2023 8:43[place] [address] Psychiatry H&P Signed Patient: Diana Barriga MR#: [id number] : 1990 Acct:[id number] Age/Sex: 33 / F Adm Date: 4 Loc: Room: [address] [place] [address] Type: ADM IN Attending Dr: Arnulfo Aviles [...] Dr. Fenton but wants to switch to [employer]. Along with this patient is in marriage counseling with her current and that today's session was not good. Patient stated she needs to be home to take care of her kids, the custody [place], and her marriage. Patient upset because she missedher son's play and has plans to take kids to [place] tomorrow. Patient denies any suicidal ideation denies hallucinations denies racing thoughts. Patient reports that there is no changes in her appetite or sleep. Patient reports that she feels fine. She has tried a lot of medications in the past and believes none of them have worked. He is going to [facility] for psych therapy. He wants to try therapy before any medications. 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 Review of symptoms: Constitutional: Denies chills [...] homicidally, denies suicidality Insight: Intact Judgment: Intact [facility] Medical History (Updated 08/14/22 @ 08:17 by [...] signed by Arnulfo Aviles MD> 04/09/24 0909 [facility] Work Phone: 1(374) 404-655006-02-2023 Hospital Discharge instructions Follow Up Care 03/20/2023 11:51:58 With:IDALMIS BORDEN, Nona Turner, URL Address: [address] [place] [address]- When: Unknown [facility] 06-02-2023 Hospital Discharge instructions Patient Education [...] include: ?8 oz (237 mL) of milk, zzwpack-wuxgxdgubpbr-hpbri milk, and calcium- fortifiedfruit juice. Calcium-fortified means [...] ?Spinach (cooked), rhubarb, beets, sweet potatoes, and [place] chard. ?Peanuts. ?Potato chips, polish fries, and baked potatoes with skin on. ?Nuts and nut products. ?Chocolate. If you regularly take a diuretic medicine, make sure to eat at least 1 or 2 servings of fruits or vegetables that are high in potassium each day. These include: ?Avocado. ?Banana. ?[place], prune, carrot, or tomato juice. ?Baked potato. [...] magnesium, fish oil, or vitamin B6. Take jhnp-jfl-qoaunxa and prescription medicines only as told by [...] Casseroles. Pizza. Lasagna. Frozen meals. Potato chips. Moroccan fries. The items listed above may not [...] provider. Document Revised: 06/16/2022 Document Reviewed: 06/16/2022 [employer] Patient Education 2022 [employer]. Follow Up Care 12/26/2022 08:46:46 With:IDALMIS BORDEN, Nona Turner, URL Address: [facility] [address], [place] [address]- When: Unknown [facility] 01-20-2023 NoteOPERATIVE NOTE OPERATION DATE: 11/07/2022 PROCEDURE: Mery endometrial ablation with LEEP. PREOPERATIVE DIAGNOSIS: Cervical dysplasia, menorrhagia. POSTOPERATIVE DIAGNOSIS: Cervical dysplasia, menorrhagia. ANESTHESIA: General. SURGEON: Jefferson Gibbs D.O. MUD WORKER: None. BLOOD LOSS: 50 mL. URINE OUTPUT: [...] taken to Recovery Room in stable condition.[facility] [id number] Hospital Discharge instructions Follow Up Care 09/25/2022 13:54:04 With:IDALMIS BORDEN, Nona Turner, URL Address: [address] [place], [place] [address]- When: Unknown [facility] 12-01-2022 NoteOPERATIVE NOTE OPERATION DATE: 09/18/2022 [...] usual fashion. I started by passing a 22-Moroccan Olympus cystoscope per urethra and into the [...] removed. She was then transferred to a gurbrookings and wheeled to PACU in stable condition.[facility] [id number] NoteHNO ID: [id number] Author: Daniel Montgomery APRN.HOD CARRIER Service: ? Author Type: Nurse Practitioner Type: Progress Notes Filed: 09/04/2022 7:46 AM Note Text: The patient did not show up for this appointment. The patient did not show up for this appointment.[facility] [id number] History of Present illness Narrative* Daniel Montgomery APRN.WAYNE - 09/04/2022 7:40 AM EST The patient did not show up for this appointment. The patient did not show up for this appointment. documented in this encounterOhiohealth [facility]09-15-2022 NotePROCEDURE: XR ANKLE LT MIN 3 V COMPARISON: None. HISTORY: Sprain of calcaneofibular ligament FINDINGS: BONES:No fracture, acute abnormality, or significant arthropathy. SOFT TISSUES:Extensive lateral soft tissue swelling EFFUSION:None visible. OTHER: Negative. IMPRESSION: Lateral soft tissue swelling. No acute fracture Electronically authenticated by: GLEN PEREZ Date: 2022-07-03 07:09[facility] + Plan note Future Appointments Appointment Date:03/20/2023 10:15:00 AM Scheduled Provider:Nona RAYGOZA MD Location:[facility] Appointment Type:URO Office Visit [facility] evalzmnwzn + Plan note Future Appointments Appointment Date:12/04/2023 09:45:00 AM Scheduled Provider:Nona RAYGOZA MD Location:[facility] Appointment Type:URO Office Visit Diagnostic Tests Pending * Electrolyte Panel 03/20/23 [facility] evalrzhctr note* Diagnosis NO SHOW- Primary documented in this encounter [facility] note* Diagnosis Onset Date Resolution Status Bipolar disorder acute [facility] Work Phone: Evaluation noteNo assessment information available [facility] Work Phone: Evaluation note* Diagnosis [...] Calculus of kidney documented in this encounter [facility]* Diagnosis Hydronephrosis with renal calculous obstruction- Primary Bilateral ureteral calculi Acute postoperative pain Other acute postoperative pain Left ureteral calculus Calculus of ureter S/P cystoscopy with ureteral stent placement Pyelonephritis Pyelonephritis, unspecified documented in this encounter [facility]* Diagnosis Well woman exam with routine gynecological exam Routine gynecological examination H/O: hysterectomy Acquired absence of both cervix and uterus Night sweats Generalized hyperhidrosis documented in this encounter [facility]* Diagnosis Hordeolum externum of right upper eyelid- Primary Neoplasm of unspecified behavior of bone, soft tissue, and skin documented in this encounter [facility] Healthcare[facility] note* Diagnosis Encounter for removal of sutures- Primary documented in this encounter [facility] Healthcare[facility] note* Diagnosis Neoplasm of unspecified behavior of bone, soft tissue, and skin- Primary documented in this encounter [facility] Healthcare[facility] note* Diagnosis Encounter for removal of sutures- Primary [facility] Narrative No data available for this section [facility] progress note No data available for this section [facility] reason for referral (narrative)No reason for referral information availableProm[facility] Work Phone: Reason for visit Narrative* Imaging (Routine) - Open SpecialtyDiagnoses / ProceduresReferred By ContactReferred To ContactRadiology Diagnoses VUR (vesicoureteric reflux) Procedures FL VOIDING URETHROCYSTOGRAM S&I Adonis Guerra MD [address] [place] [address] Phone: tel: fax: Referral IDStatusReasonStart DateExpiration DateVisits RequestedVisits [id number]/ [facility] HospitalContactual [facility] HospitalReselect specialty hospital for visit Narrative* Auth/CertSpecialtyDiagnoses / ProceduresReferred By ContactReferred To Contact Diagnoses Urinary tract obstruction by kidney stone UTI (urinary tract infection) [place]teral [place] [address] [place] [address] Phone: tel: fax: [facility] HospitalSumav[facility] [id number] [place], [place] [phone] Referral IDStatusMountain [facility] DateExpiration DateVisits RequestedVisits [id number] [facility] HospitalContactual HealthReason for visit Narrative* Auth/CertSpecialtyDiagnoses / ProceduresReferred By ContactReferred To Contact Diagnoses Hydronephrosis, left Luis Felipe Delacruz MD [address] [place] [address] Phone: tel: fax: [facility] HospitalContactual [facility] [address] [place] [address] Referral IDStatusReasonIdalia DateExpiration DateVisits RequestedVisits [id number] [facility] Summary Purpose Family History [...] prosecute any alcohol or drug abuse patient.[facility] Reason for Visit (unrecogniz ed section and content) ReasonOnset DateCommentsNo Show09/04/2022No showReasonCommentsGynecologic Exam ReasonCommentsSuspicious Skin LesionReasonCommentsSuture / Staple Removal Care Teams (unrecognized sec tion and content) Team MemberRelationshipSpecialtyStart DateEnd Date Domingo Snyder MD [address] [place] [address] ReferringFawaly Cnktkqap56/14/22 Team Status: Active Member Role Status Dates [...] 2024Team MemberRelationshipSpecialtyStart DateEnd Date Domingo Snyder MD [facility] [place] [address] PCP - GeneralFamily Medicine01/05/25Team MemberRelationshipSpecialtyStart DateEnd Date Domingo Snyder MD [address] [place], [place] [phone] PCP - Generalmily Medicine01/05/25Team MemberRelationshipSpecialtyStart DateEnd Date Domingo Snyder MD [address] [place] [address] PCP - GeneralFamily Medicine01/05/25 Team Status: Inactive Member Role Status Dates Javi Tanner PA-C Attending Provider Active Start: January 21, 2025 End: January 21, 2025Team MemberRelationshipSpecialtyStart DateEnd Date Domingo Snyder MD [address] [place] [address] PCP - GeneralFamily Medicine01/05/25Team MemberRelationshipSpecialtyStart DateEnd Date Domingo Snyder MD [address] [place] [place] [phone] PCP - GeneralFamily Medicine04/13/23Team MemberRelationshipSpecialtyStart DateEnd Date Domingo Snyder MD [address] [place] [place] [phone] PCP - GeneralFamily Medicine04/13/23Team MemberRelationshipSpecialtyStart DateEnd Date Domingo Snyder MD [address] [facility] [place] [address] PCP - Generalmily Medicine04/13/23Team MemberRelationshipSpecialtyStart DateEnd Date Domingo Snyder MD [address] [facility] [place] [address] PCP - Generalmi Medicine04/13/23Team MemberRelationshipSpecialtyStart DateEnd Date Domingo Snyder MD [address] [facility] [place] [address] PCP - Generalmi Medicine04/13/23 Team Status: Inactive Member Role Status Dates Vj Fraire , Attending Provider Active Start: May 05, 2025 End: May 05, 2025Team MemberRelationshipSpecialtyStart DateEnd Date Domingo nSyder MD [address] [facility] [place] [address] PCP - Generalmi Medicine04/13/23Team MemberRelationshipSpecialtyStart DateEnd Date Domingo Snyder MD [address] [facility] [place] [address] [facility] - [facility]04/13/23 INFORMATION SOURCE (unrecogn ized section and content) DATE CREATED AUTHOR 09/06/2022 [facility] DATE CREATED AUTHOR AUTHOR'S ORGANIZ ATION 02/19/2023 [facility] DATE CREATED AUTHOR AUTHOR'S ORGANIZ ATION 10/05/2024 [facility] DATE CREATED AUTHOR AUTHOR'S ORGANIZ ATION 01/16/2025 [facility] DATE CREATED AUTHOR AUTHOR'S ORGANIZ ATION 02/03/2025 [facility] DATE CREATED AUTHOR AUTHOR'S ORGANIZ ATION 04/05/2025 [facility] DATE CREATED AUTHOR AUTHOR'S ORGANIZ ATION 05/09/2025 [facility] DATE CREATED AUTHOR AUTHOR'S ORGANOLGA LIDIA ATION 05/16/2025 [facility] CREATED AUTHOR AUTHOR'S ORGANIZ ATION 08/18/2025 [facility] Goals (unrecognized section and content) Goals may [...] mL IV syringe (COMPLETED) 2,000 mg, IntraVENous, METHOD CONSULTANT TO O.R., On 01/22/25 at 0930, For 1 dose, Administer over 5 mins. * 0928 (MAR Hold - Provider: Tamy Autohold - Reason: Unreviewed Transfer Orders) * 0930 (Automatically Held - Provider: [facility] Autohold) * 0939 (Given - Provider: KONSTANTIN Baird CRNA) * 0940 ([facility] Unhold - Provider: KONSTANTIN Baird CRNA) cefTRIAXone (ROCEPHIN) 1,000 mg in sterile water 10 mL IV syringe 1,000 mg, IntraVENous, EVERY 24 HOURS, First dose on 01/22/25 at 1900, For 10 days, Administer asslow IV Push over 5 mins Reconstitute 1 g vials with 9.6 mL of designated diluent to produce a 100 mg/mL solution. * 0928 ([facility] Hold - Provider: [facility] Autohold - Reason: Unreviewed Transfer Orders) * 1027 ([facility] Unhold - Provider: Anastasiya Coates RN) * 1900 (Due - Provider: Sudeep Ordonez [facility]) enoxaparin (LOVENOX) injection 40 mg 40 mg, [...] educated on importance and intent) * 0928 ([facility] Hold - Provider: Tamy Autohold - Reason: Unreviewed Transfer Orders) * 1027 ([facility] Unhold - Provider: Anastasiya Coates RN) ibuprofen (ADVIL;MOTRIN) tablet 600 mg (COMPLETED) 600 mg, Oral, ONCE, 1 dose, On 01/22/25 at 0015 * 6539 (Given - Provider: Aundrea Beltre RN) tamsulosin (FLOMAX) capsule 0.4 mg 0.4 mg, Oral, DAILY, First dose on 01/22/25 at 0900, Until Discontinued, Do not crush or break. Give 30 minutes after a full meal to limit risk of orthostatic hypotension/falls. * 0834 (Given - Provider: Anastasiya Coates RN) * 0928 ([facility] Hold - Provider: [facility] Autohold - Reason: Unreviewed Transfer Orders) * 1027 ([facility] Unhold - Provider: Anastasiya Coates RN) Medication Order/ 0.9 % sodium chloride infusion (CANCELED) IntraVENous, at 150 mL/hr, CONTINUOUS, Starting on 01/22/25 at 0015 * 0002 (New Bag - Provider: Aundrea Beltre, FELA) * 0557 (New Bag - Provider: Aundrea Beltre, FELA) * 0928 ([facility] Hold - Provider: [facility] Autohold - Reason: Unreviewed Transfer Orders) * 1027 ([facility] Unhold - Provider: Anastasiya Coates RN) Medication Order/ acetaminophen (TYLENOL) suppository 650 mg(Linked Group 1) 650 mg, Rectal, EVERY 6 HOURS PRN, Starting on 01/21/25 at 2346, Until Discontinued, Pain Mild (1-3), allowed for higher pain score per patient request, Fever, For temp greater than 100.4 F (38 C),Administer if oral route cannot be used. * 0928 ([facility] Hold - Provider: [facility] Autohold - Reason: Unreviewed Transfer Orders) * 1027 ([facility] Unhold - Provider: Anastasiya Coates RN) acetaminophen (TYLENOL) tablet 650 mg(Linked Group 1) 650 mg, Oral, EVERY 6 HOURS PRN, Starting on 01/21/25 at 2346, Until Discontinued, Pain Mild (1-3), allowed for higher pain score per patient request, Fever, For temp greater than 100.4 F (38 C), Maximum dose of acetaminophen is 4000 mg from all sources in 24 hours. * 0928 ([facility] Hold - Provider: [facility] Autohold - Reason: Unreviewed Transfer Orders) * 1027 ([facility] Unhold - Provider: Anastasiya Coates RN) [...] 30ml/min * 0928 (DEC Hold - Provider: [facility] Autohold - Reason: Unreviewed Transfer Orders) * 1027 ([facility] Unhold - Provider: Anastasiya Coates RN) [...] - Provider: Anastasiya Coates RN) * 0928 ([facility] Hold - Provider: [facility] Autohold - Reason: Unreviewed Transfer Orders) * 1027 ([facility] Unhold - Provider: Anastasiya Coates RN) [...] - Provider: Anastasiya Coates RN) * 0928 ([facility] Hold - Provider: [facility] Autoh[facility] - Reason: Unreviewed Transfer Orders) * 1027 ([facility] Unhold - Provider: Anastasiya Coates, RN) ondansetron (ZOFRAN) injection 4 mg(Linked Group 3) 4 mg, IntraVENous, EVERY 6 HOURS PRN, Starting on 4/5/25 at 2346, Until Discontinued, Nausea, Vomiting, Administer if oral route cannot be used. * 0001 (Given - Provider: Aundrea Beltre RN) * 0554 (Given - Provider: Aundrea Beltre RN) * 0928 ([facility] Hold - Provider: [facility] Autoh[facility] - Reason: Unreviewed Transfer Orders) * 1027 ([facility] Unhold - Provider: Anastasiya Coates RN) ondansetron (ZOFRAN-ODT) disintegrating tablet 4 mg(Linked Group 3) 4 mg, Oral, EVERY 8 HOURS PRN, Starting on 4/5/25 at 2346, Until Discontinued, Nausea, Vomiting * 0001 (See Alternative - Provider: Aundrea Beltre RN) * 0554 (See Alternative - Provider: Aundrea Beltre RN) * 0928 ([facility] Hold - Provider: [facility] - Reason: Unreviewed Transfer Orders) * 1027 ([facility] Unhold - Provider: Anastasiya Coates RN) oxyCODONE (ROXICODONE) immediate release tablet 2.5 mg(Linked Group 4) 2.5 mg, Oral, EVERY 4 HOURS PRN, Starting on 4/5/25 at 2346, Until Discontinued, Pain Moderate (4-6), allowed for higher pain score per patient request * 0000 (See Alternative - Provider: Aundrea Beltre RN) * 0928 ([facility] Hold - Provider: [facility] - Reason: Unreviewed Transfer Orders) * 1027 ([facility] Unhold - Provider: Anastasiya Coates, FELA) * 1053 (See Alternative - Provider: Anastasiya Coates RN) oxyCODONE (ROXICODONE) immediate release tablet 5 mg(Linked Group 4) 5 mg, Oral, EVERY 4 HOURS PRN, Starting on 4/5/25 at 2346, Until Discontinued, Pain Severe (7-10) * 0000 (Given - Provider: Aundrea Beltre RN) * 0928 ([facility] Hold - Provider: [facility] - Reason: Unreviewed Transfer Orders) * 1027 ([facility] Unhold - Provider: Anastasiya Coates RN) * 1053 (Given - Provider: Anastasiya Coates RN) polyethylene glycol (GLYCOLAX) packet 17 g 17 g, Oral, DAILY PRN, Starting on 01/21/25 at 2346, Until Discontinued, Constipation, First linetherapy for constipation * 0928 ([facility] Hold - Provider: [facility] Autohold - Reason: Unreviewed Transfer Orders) * 1027 ([facility] Unhold - Provider: Anastasiya Coates RN) [...] if GI adverse effects occur. * 0928 ([facility] Hold - Provider: [facility] - Reason: Unreviewed Transfer Orders) * 1027 ([facility] Unhold - Provider: Anastasiya Coates RN) [...] and each half swallowed separately. * 0928 ([facility] Hold - Provider: [facility] - Reason: Unreviewed Transfer Orders) * 1027 ([facility] Unhold - Provider: Anastasiya Coates RN) [...] CrCl less than 30 mL/min. * 0928 ([facility] Hold - Provider: [facility] - Reason: Unreviewed Transfer Orders) * 1027 ([facility] Unhold - Provider: Anastasiya Coates RN) [...] - Provider: Anastasiya Coates RN) * 0928 ([facility] Hold - Provider: [facility] - Reason: Unreviewed Transfer Orders) * 1027 ([facility] Unhold - Provider: Anastasiya Coates RN) sterile [...] - Reason: Unreviewed Transfer Orders) * 174 ([facility] Unhold - Provider: Balwinder Ashton RN) * [...] - Reason: Unreviewed Transfer Orders) * 174 ([facility] Unhold - Provider: Balwinder Ashton RN) * [...] hours. * 1440 ([facility] Hold - Provider: [facility] - Reason: Unreviewed Transfer Orders) * 1744 ([facility] Unhold - Provider: Balwinder Ashton, FELA) diatrizoate meglumine (CYSTOGRAFIN) 30 % solution (CANCELED) PRN, Starting on Thu01/27/25 at 1553, Until Thu01/27/25 at 1601, Intra-op * 1553 (Given - Provider: Edwina Espino MD) [...] RN) * 0717 (Given - Provider: Balwinder Ashton RN) * 1014 (Given - Provider: Balwinder Ashton RN) * 1329 (Given - Provider: Balwinder Ashton RN) * 1440 (MAR Hold - Provider: Tamy Autohold - Reason: Unreviewed Transfer Orders) * 1744 ([facility] Unhold - Provider: Balwinder Ashton RN) * [...] RN) * 1440 (DEC Hold - Provider: [facility] - Reason: Unreviewed Transfer Orders) * [...] RN) * 1440 ([facility] Hold - Provider: [facility] - Reason: Unreviewed Transfer Orders) * [...] RN) * 1440 ([facility] Hold - Provider: [facility] - Reason: Unreviewed Transfer Orders) * [...] RN) * 1440 ([facility] Hold - Provider: [facility] - Reason: Unreviewed Transfer Orders) * [...] First line therapy for constipation * 1440 ([facility] Hold - Provider: [facility] - Reason: Unreviewed Transfer Orders) * 1744 ([facility] Unhold - Provider: Balwinder Ashton RN) prochlorperazine [...] RN) * 1440 (MAR Hold - Provider: [facility] - Reason: Unreviewed Transfer Orders) * 1744 ([facility] Unhold - Provider: Balwinder Ashton RN) sod [...] BE BASED ON THE PRIMARY CLINICAL RECORDS. [facility]. provides no warranty or guarantee of the accuracy or completeness of information in this document.
[2025-09-11 11:46] LABS: Hematocrit 40.0 % (36.0-48.0); Hemoglobin 13.2 g/dL (12.0-16.0); Immature Granulocytes Abs Auto 0.01 10^3/uL (0.00-0.03); Immature Granulocytes Pct Auto 0.2 % (0.0-0.5); Lymphocytes Absolute Auto 2.1 10^3/uL (1.2-3.8); Mean Corpuscular HGB Conc 33.0 g/dL (29.9-35.2); Mean Corpuscular Hemoglobin 28.3 pg (26.7-34.0); Mean Corpuscular Volume 85.8 fL (81.0-99.0); Platelet Count 314 10^3/uL (150-450); Red Blood Count 4.66 10^6/uL (4.20-5.40); White Blood Count 4.4 10^3/uL (4.0-11.0)
[2025-09-11 12:13] LABS: Alanine Aminotransferase 41 U/L (14-59); Albumin Globulin Ratio 1.2; Albumin Level 3.9 g/dL (3.4-5.0); Alkaline Phosphatase 74 U/L (46-116); Anion Gap 7.6; Aspartate Amino Transferase 21 U/L (15-37); Blood Urea Nitrogen 7.0 mg/dL (7.0-18.0); Calcium 8.9 mg/dL (8.5-10.1); Carbon Dioxide 30.3 mmol/L (21.0-32.0); Chloride 106 mmol/L (98-107); Cholesterol 192 mg/dL (<=200); Estimated GFR (African America >60 (>=60 mL/min/1.73m^2); Estimated GFR (Non-African Ame >60 (>=60 mL/min/1.73m^2); Free T3 2.66 pg/mL (2.18-3.98); Globulin 3.3 g/dL; Glucose 90 mg/dL (74-106); HDL Cholesterol 59 mg/dL (40-60); Potassium 3.9 mmol/L (3.5-5.1); Sodium 140 mmol/L (136-145); Thyroid Stimulating Hormone 0.613 uIU/mL (0.358-3.740); Total Protein 7.2 g/dL (6.4-8.2); Triglycerides 52 mg/dL (<=150); VLDL CHOLESTEROL 10.4 mg/dL
[2025-09-11 12:39] LABS: Iron 75.0 ug/dL (50.0-170.0)
== END 2025-09-11 11:02 | disposition home or self-care (01) ==
LOC: LAB 11:01
PROVIDERS: PCP Family Medicine; Visit Provider Family Medicine
DX: Z00.00 Encounter for general adult medical examination without abnormal findings (principal)
CPT/HCPCS: 36415; 80053; 80061; 83036; 83525; 83540; 84436; 84443; 84481; 85025